=== PATIENT | female | born 1960 | race Caucasian/White ===

== ENCOUNTER 2022-09-24 17:56 | Emergency (ER) | payer OTHER, SELFPAY ==
[2022-09-24] VITALS (65 sets, daily range): BP systolic 113–177; BP diastolic 60–118; PULSE 91–105; RESP 11–26; TEMP 36.8; O2SAT 72–98; BMI 24.6
--- NOTE | 2022-09-24 17:26 | XR_ITS ---
[address] [address] Patient Name: JONATAN SPENCER MRN: [id number] date: 1960 Sex: F Assigned Patient Location: ER Current Patient Location: ER Accession/Order Number: [id number] Exam Date: 09/24/2022 17:58 Report Date: 09/24/2022 18:15 At the request of: HO PEREZ Procedure: XR chest 1V EXAMINATION: XR chest 1V HISTORY: Chest pain COMPARISON: Chest x-ray 08/25/2021 TECHNIQUE: Portable chest FINDINGS: The lung parenchyma is free of consolidation or infiltrate. No pneumothorax or pleural effusion. The cardiac, mediastinal and hilar contours are normal. The visualized osseous structures exhibit no gross abnormality. IMPRESSION: No acute cardiopulmonary abnormality. Electronically authenticated by: APOLINAR GRANADOS Date: 09/24/2022 18:15
--- NOTE | 2022-09-24 17:26 | ECG_ITS ---
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
--- NOTE | 2022-09-24 17:26 | ED.CHESTPAI1 ---
HPI - Chest Pain General Chief Complaint: Shortness of Breath/Dyspnea Stated Complaint: chest pain Time Seen by Provider: 09/24/22 18:38 Source: patient Mode of arrival: ambulance Limitations: no limitations History of Present Illness HPI narrative: patient here complaining of chest pain radiating to her shoulders and upper arms. She also has shortness of breath. The last two days she went without her usual oxygen because she is staying at another person's house. She has a history of coronary stents done approximately seven years ago actually up from [facility]. She's not had any recent stress testing. She was given nitroglycerin before arrival by squad and she was also given aspirin. She said her pain went from 87. She does not have any diaphoresis. Does not have any lower leg pain. Says is just a hurting across her chest. A 12-lead EKG done in route and also upon arrival here does not show any ST segment elevation.she states the discomfort started approximately 2:00 PM and she was at rest. She says she got slightly diaphoretic. She did not have vomiting. She's not had this discomfort recently. She took one nitroglycerin and one aspirin and then paramedics gave her more nitroglycerin and another aspirin. She continues to use tobacco products. Related Data Home Medications Medication Instructions Recorded Confirmed amlodipine 10 mg tablet 10 mg PO QDAY 09/24/22 09/24/22 aspirin 81 mg tablet,delayed 81 mg PO QDAY 09/24/22 09/24/22 release escitalopram oxalate 10 mg tablet 10 mg PO QDAY 09/24/22 09/24/22 gabapentin 800 mg tablet 800 mg PO Q12H 09/24/22 09/24/22 losartan 100 mg tablet 100 mg PO QDAY 09/24/22 09/24/22 methocarbamol 750 mg tablet 750 mg PO Q8H 09/24/22 09/24/22 oxycodone-acetaminophen 5 mg-325 1 tab PO Q6H PRN pain 09/24/22 09/24/22 mg tablet pregabalin 150 mg capsule 150 mg PO Q12H 09/24/22 09/24/22 Allergies Allergy/AdvReac Type Severity Reaction Status Date / Time codeine AdvReac Intermediate Verified 09/24/22 17:23 ceclor AdvReac Intermediate Uncoded 09/24/22 17:23 PFSH PFSH Social History Smoking status: Former smoker Exam Narrative Exam Narrative: the patient was seen immediately upon arrival by myself examination at that time. Simultaneously instituted therapy. At this time she is awake alert. Less than optimal historian, she can't remember exactly which hospital she had her coronary stents placed but thinks it was about seven years ago. She is not diaphoretic but she says she was earlier. She is not vomiting but she said she was nauseated. Constitutional skin is warm and dry. She appears older than stated age vital signs are as noted. HEENT shows no evidence of trauma or injury. There is no conjunctivitis. Her airways patent oral cavity is normal. Eye examination shows no scleral icterus or pallor. Respiratory her lungs were clear is scattered rhonchi with prolongation of expiratory phase consistent with chronic obstructive pulmonary disease. Cardio shows regular rate and rhythm with no ectopy. Extremities show no evidence of pedal edema. Perfusion to the limbs is normal with good tissue perfusion. Neuro she is awake alert oriented. Gastrointestinal she has no abdominal distention no pulsatile masses and no pain. Constitutional Vital Signs - 24 hr 09/24/22 17:24 09/24/22 17:53 09/24/22 18:02 Temperature 98.2 F Pulse Rate Pulse Rate [Monitor] 105 H Respiratory Rate 18 26 H Blood Pressure Blood Pressure [Left Arm] 164/83 H Pulse Oximetry 98 72 L 93 L Oxygen Delivery Method Room Air Room Air Vapotherm Oxygen Delivery Flow Rate Fraction of Inspired Oxygen 09/24/22 18:12 09/24/22 18:17 09/24/22 17:21 Temperature Pulse Rate 101 H Pulse Rate [Monitor] Respiratory Rate 26 H Blood Pressure Blood Pressure [Left Arm] Pulse Oximetry 93 L 92 L 81 L Oxygen Delivery Method Vapotherm Vapotherm Oxygen Delivery Flow Rate 35 Fraction of Inspired Oxygen 60 09/24/22 17:25 09/24/22 17:25 09/24/22 17:45 Temperature Pulse Rate 100 H 99 H 99 H Pulse Rate [Monitor] Respiratory Rate 19 24 26 H Blood Pressure 164/83 H 164/75 H Blood Pressure [Left Arm] Pulse Oximetry 92 L 98 87 L Oxygen Delivery Method Oxygen Delivery Flow Rate Fraction of Inspired Oxygen 09/24/22 17:50 09/24/22 17:55 09/24/22 18:00 Temperature Pulse Rate 96 H 98 H 95 H Pulse Rate [Monitor] Respiratory Rate 14 21 19 Blood Pressure 155/68 H 150/67 H 165/71 H Blood Pressure [Left Arm] Pulse Oximetry 90 L 91 L 88 L Oxygen Delivery Method Oxygen Delivery Flow Rate Fraction of Inspired Oxygen 09/24/22 18:05 09/24/22 18:10 09/24/22 18:15 Temperature Pulse Rate 95 H 98 H 96 H Pulse Rate [Monitor] Respiratory Rate 26 H 15 18 Blood Pressure 158/90 H 146/118 H 145/76 H Blood Pressure [Left Arm] Pulse Oximetry 93 L 89 L 92 L Oxygen Delivery Method Oxygen Delivery Flow Rate Fraction of Inspired Oxygen 09/24/22 18:20 09/24/22 18:25 09/24/22 18:30 Temperature Pulse Rate 94 H 96 H 96 H Pulse Rate [Monitor] Respiratory Rate 14 16 19 Blood Pressure 158/80 H 156/71 H 169/76 H Blood Pressure [Left Arm] Pulse Oximetry 96 93 L 94 L Oxygen Delivery Method Oxygen Delivery Flow Rate Fraction of Inspired Oxygen 09/24/22 18:35 Temperature Pulse Rate 101 H Pulse Rate [Monitor] Respiratory Rate 16 Blood Pressure 163/74 H Blood Pressure [Left Arm] Pulse Oximetry 95 Oxygen Delivery Method Oxygen Delivery Flow Rate Fraction of Inspired Oxygen Course Vital Signs Vital signs: Vital Signs Pulse Rate 101 H 09/24/22 17:21 Respiratory Rate 26 H 09/24/22 17:21 Pulse Oximetry 81 L 09/24/22 17:21 Temperature 98.2 F 09/24/22 17:24 Pulse Rate 101 H 09/24/22 18:35 Respiratory Rate 16 09/24/22 18:35 Blood Pressure 163/74 H 09/24/22 18:35 Pulse Oximetry 95 09/24/22 18:35 Oxygen Delivery Method Vapotherm 09/24/22 18:17 Oxygen Delivery Flow Rate 35 09/24/22 18:17 Fraction of Inspired Oxygen 60 09/24/22 18:17 MDM - Chest Pain MDM Narrative Medical decision making narrative: this patient is a continuous smoker has comorbidities and had stents approximately seven years ago. She was treated as acute coronary syndrome from her arrival. Her EKGs did not show any ST segment elevation but in fact her troponin is elevated. Her d-dimer is also elevated. She was started on a heparin drip she was given MS she was started on nitroglycerin drip and she had her aspirin earlier. We will contact [facility] in [place] to try to arrange transfer at this time. Lab Data Labs: Lab Results 09/24/22 Range/Units 17:51 WBC 16.7 H (4.0-11.0) 10^3/uL RBC 4.42 (4.20-5.40) 10^6/uL Hgb 12.2 (12.0-16.0) g/dL Hct 39.0 (36.0-48.0) % MCV 88.2 (81.0-99.0) fL MCH 27.6 (26.7-34.0) pg MCHC 31.3 (29.9-35.2) g/dL RDW 19.1 H (11.0-15.0) % Plt Count 248 (150-450) 10^3/uL MPV 8.5 L (9.5-13.5) fL Neut % (Auto) 86.6 H (43.0-75.0) % Lymph % (Auto) 5.4 L (20.5-60.0) % [place] % (Auto) 5.6 (1.7-12.0) % Eos % (Auto) 1.2 (0.9-7.0) % Baso % (Auto) 0.7 (0.2-2.0) % Neut # (Auto) 14.4 H (1.4-6.5) 10^3/uL Lymph # (Auto) 0.9 L (1.2-3.8) 10^3/uL [place] # (Auto) 0.9 H (0.3-0.8) 10^3/uL Eos # (Auto) 0.2 (0.0-0.7) 10^3/uL Baso # (Auto) 0.1 (0.0-0.1) 10^3/uL Abs Immat Gran (auto) 0.08 H (0.00-0.03) 10^3/uL Imm/Tot Granulo (auto) 0.5 (0.0-0.5) % PT 9.9 (9.0-11.6) sec INR 0.93 APTT 27.0 (22.3-36.2) sec D-Dimer 2.54 H* (<=0.59) mg/L FEU Sodium 137 (136-145) mmol/L Potassium 3.5 (3.5-5.1) mmol/L Chloride 98 (98-107) mmol/L Carbon Dioxide 30.1 (21.0-32.0) mmol/L Anion Gap 12.4 BUN 17.0 (7.0-18.0) mg/dL Creatinine 1.09 H (0.55-1.02) mg/dL Est GFR ( Amer) >60 (>=60) Est GFR (Non-Af Amer) 51 L (>=60) BUN/Creatinine Ratio 15.6 Glucose 163 H (74-106) mg/dL Calcium 8.9 (8.5-10.1) mg/dL Total Bilirubin 0.4 (0.2-1.0) mg/dL AST 13 L (15-37) U/L ALT 15 (14-59) U/L Alkaline Phosphatase 166 H (46-116) U/L Troponin I High Sens 80.5 H* (4.0-51.3) pg/mL NT-Pro-B Natriuret Pep 3611.0 H* (<=900.0) pg/mL Total Protein 7.4 (6.4-8.2) g/dL Albumin 3.2 L (3.4-5.0) g/dL Globulin 4.2 g/dL Albumin/Globulin Ratio 0.8 ECG Data Attestation: I personally reviewed and interpreted this ECG as follows: ECG interpretation date: 09/24/22 Interpretation: EKG shows sinus tract borderline with rate one oh one. There is motion artifact. There is no ST segment elevation. The axis for QRS one thirty-seven. There is no malignant ectopy. There is right ventricular conduction delay. There is no substantial change from 08/25/2021 Heart Score History: Highly Suspicious Age: >45-<65 years Risk Factors: >3 Risk Factors/ HX of CAD:2 Troponin: <3X Normal Limit Critical Care Time Critical Care Time Total Critical Care Time: 60 Discharge Plan Discharge Chief Complaint: Shortness of Breath/Dyspnea Clinical Impression: Non-STEMI (non-ST elevated myocardial infarction) Patient Disposition: [facility] Time of Disposition Decision: 18:46 Condition: Fair Mode of Transportation: EMS Prescriptions / Home Meds: No Action amlodipine 10 mg tablet 10 mg PO QDAY aspirin 81 mg tablet,delayed release (DR/EC) 81 mg PO QDAY escitalopram oxalate 10 mg tablet 10 mg PO QDAY gabapentin 800 mg tablet 800 mg PO Q12H losartan 100 mg tablet 100 mg PO QDAY methocarbamol 750 mg tablet 750 mg PO Q8H oxycodone-acetaminophen 5-325 mg tablet 1 tab PO Q6H PRN (Reason: pain) pregabalin 150 mg capsule 150 mg PO Q12H Referrals: Physician,Non-Staff, MD [Primary Care Provider] - 1 week
[2022-09-24] MEDS: NITROGLYCERIN IN 5 % DEXTROSE 50 MG/250 ML INFUS..BTL IV (17:33)
[2022-09-24] MEDS: MORPHINE SULFATE 2 MG/ML SYRINGE IV (17:40)
--- NOTE | 2022-09-24 18:02 | PC.NURSE ---
pt presents to ED because for the last 1-2 days she has been c/o sob and chest pain. pt states she has hx of COPD and wears 2 liters nasal cannula as needed. pt states she has been staying at her brothers house the last couple days and hasn't had access to her at home o2. pt states she did have stents placed back in 2019. when squad arrived pt 02 was low, pt placed on 4 liters nasal cannula. on arrival to ED pt o2 sat was 72% on room air. pt placed on 6 liters nasal cannula and sitting at 82-84%. respiratory called to bedside. pt placed on non-rebreather and satting at 100%. when respiratory was attempting to switch patient back onto nasal cannula pt o2 sat dropped to 85% whenever patient would move. physician notified and pt currently on vapotherem now satting at 93%.
[2022-09-24 18:07] LABS: Basophils Absolute Auto 0.1 10^3/uL (0.0-0.1); Basophils Percent Auto 0.7 % (0.2-2.0); Eosinophils Absolute Auto 0.2 10^3/uL (0.0-0.7); Eosinophils Percent Auto 1.2 % (0.9-7.0); Hemoglobin 12.2 g/dL (12.0-16.0); Immature Granulocytes Abs Auto 0.08 10^3/uL (0.00-0.03); Immature Granulocytes Pct Auto 0.5 % (0.0-0.5); Lymphocytes Absolute Auto 0.9 10^3/uL (1.2-3.8); Lymphocytes Percent Auto 5.4 % (20.5-60.0); Mean Corpuscular HGB Conc 31.3 g/dL (29.9-35.2); Mean Corpuscular Hemoglobin 27.6 pg (26.7-34.0); Mean Corpuscular Volume 88.2 fL (81.0-99.0); Mean Platelet Volume 8.5 fL (9.5-13.5); Monocytes Absolute Auto 0.9 10^3/uL (0.3-0.8); Monocytes Percent Auto 5.6 % (1.7-12.0); Neutrophils Absolute Auto 14.4 10^3/uL (1.4-6.5); Neutrophils Percent Auto 86.6 % (43.0-75.0); Platelet Count 248 10^3/uL (150-450); Red Blood Count 4.42 10^6/uL (4.20-5.40); Red Cell Distribution Width 19.1 % (11.0-15.0); White Blood Count 16.7 10^3/uL (4.0-11.0)
[2022-09-24 18:17] LABS: INR 0.93; Prothrombin Time 9.9 sec (9.0-11.6)
--- NOTE | 2022-09-24 18:18 | RESP.RT ---
pt was on NRB, spo2 97%, pt changed to 5lNC spo2 89-90% with rest, 84-85% with exertion. pt changed to vapotherm
[2022-09-24 18:19] LABS: D Dimer 2.54 mg/L FEU (<=0.59)
--- NOTE | 2022-09-24 18:20 | PC.NURSE ---
pt states she took 1 baby aspirin and 1 nitro at home before squad arrived. squad gave 1 nitro and 324 of aspirin during transportation
[2022-09-24 18:30] LABS: Alanine Aminotransferase 15 U/L (14-59); Albumin Globulin Ratio 0.8; Albumin Level 3.2 g/dL (3.4-5.0); Alkaline Phosphatase 166 U/L (46-116); Anion Gap 12.4; Aspartate Amino Transferase 13 U/L (15-37); BUN Creatinine Ratio 15.6; Bilirubin Total 0.4 mg/dL (0.2-1.0); Calcium 8.9 mg/dL (8.5-10.1); Carbon Dioxide 30.1 mmol/L (21.0-32.0); Chloride 98 mmol/L (98-107); Estimated GFR (African America >60 (>=60); Estimated GFR (Non-African Ame 51 (>=60); Globulin 4.2 g/dL; Glucose 163 mg/dL (74-106); Potassium 3.5 mmol/L (3.5-5.1); Sodium 137 mmol/L (136-145); Total Protein 7.4 g/dL (6.4-8.2)
[2022-09-24 18:35] LABS: Troponin I High Sensitivity 80.5 pg/mL (4.0-51.3)
[2022-09-24] MEDS: HEPARIN SODIUM (PORCINE) 5,000 UNIT/ML VIAL 3900 UNIT IV (18:59)
[2022-09-24] MEDS: HEPARIN SODIUM,PORCINE/D5W 25,000 UNIT/500 ML IV.SOLN 16 UNIT IV (18:59)
[2022-09-24] MEDS: PREGABALIN 75 MG CAPSULE 150 MG PO (19:39)
== END 2022-09-24 23:20 | disposition short-term general hospital (02) ==
PROVIDERS: Emergency Medicine Emergency Medical Services; Emergency Provider Internal Medicine
DX: I21.4 Non-ST elevation (NSTEMI) myocardial infarction (principal); R79.89 Other specified abnormal findings of blood chemistry; I25.10 Atherosclerotic heart disease of native coronary artery without angina pectoris; Z99.81 Dependence on supplemental oxygen; Z95.5 Presence of coronary angioplasty implant and graft; F17.210 Nicotine dependence, cigarettes, uncomplicated; Z79.899 Other long term (current) drug therapy; Z79.82 Long term (current) use of aspirin
CPT/HCPCS: 36415; 71045; 80053; 81003; 83880; 84484; 85025; 85378; 85610; 85730; 93005; 94799; 96374; 96375; 99285

== ENCOUNTER 2023-03-11 12:19 | Emergency (ER) | payer OTHER, SELFPAY ==
[2023-03-11 12:21] VITALS: BP 143/76; PULSE 96; RESP 18; TEMP 36.7; O2SAT 99; BMI 22.7
--- NOTE | 2023-03-11 12:40 | XR_ITS ---
The [place] [id number] Patient Name: JONATAN SPENCER MRN: [id number] date: 1960 Sex: F Assigned Patient Location: ER Current Patient Location: ER Accession/Order Number: [id number] Exam Date: 03/11/2023 12:58 Report Date: 03/11/2023 13:27 At the request of: HO PEREZ Procedure: XR pelvis min 3V EXAM: XR pelvis min 3V, XR hip RT min 2V HISTORY: FALL COMPARISON: CT pelvis study dated 08/25/2021 TECHNIQUE: 3 views of the pelvis were obtained. FINDINGS: Marked degenerative changes about the right hip joint with significant joint space narrowing superolaterally. Sclerosis of the adjacent bony structures with degenerative subchondral cystic changes adjacent bony structures. Minimal degenerative change about the left hip joint. Sacroiliac joints appear grossly unremarkable. Ilnx-sa-jzfezxef degenerative changes about the visualized lower lumbar spine. Mild osteitis pubis. There appears be a healing fracture of the right inferior pubic ramus which appears essentially undisplaced. Postoperative clips are noted bilaterally. Vascular consolidations are present. AP and lateral views of the right hip were obtained. FINDINGS: Healing fracture of an essentially undisplaced transverse fracture of the right inferior pubic ramus with mild periosteal new bone formation suggested. Fracture of the proximal right superior pubic ramus suggested on pelvic view not convincingly demonstrated, this may be positional in nature. Postoperative clips are present. Vascular calcifications are noted. Soft tissues are grossly within normal limits. XR/XR pelvis min 3V IMPRESSION: Pelvis study demonstrates healing inferior right pubic ramus fracture. Right hip study demonstrates healing inferior pubic ramus fracture as noted. Follow-up as needed. Electronically authenticated by: SERENITY CARR Date: 03/11/2023 13:27
--- NOTE | 2023-03-11 12:40 | XR_ITS ---
The [address] [address] Patient Name: JONATAN SPENCER MRN: [id number] date: 1960 Sex: F Assigned Patient Location: ER Current Patient Location: ER Accession/Order Number: [id number] Exam Date: 03/11/2023 12:58 Report Date: 03/11/2023 13:27 At the request of: HO PEREZ Procedure: XR hip RT min 2V EXAM: XR pelvis min 3V, XR hip RT min 2V HISTORY: FALL COMPARISON: CT pelvis study dated 08/25/2021 TECHNIQUE: 3 views of the pelvis were obtained. FINDINGS: Marked degenerative changes about the right hip joint with significant joint space narrowing superolaterally. Sclerosis of the adjacent bony structures with degenerative subchondral cystic changes adjacent bony structures. Minimal degenerative change about the left hip joint. Sacroiliac joints appear grossly unremarkable. Nlzb-sy-zvkyebsi degenerative changes about the visualized lower lumbar spine. Mild osteitis pubis. There appears be a healing fracture of the right inferior pubic ramus which appears essentially undisplaced. Postoperative clips are noted bilaterally. Vascular consolidations are present. AP and lateral views of the right hip were obtained. FINDINGS: Healing fracture of an essentially undisplaced transverse fracture of the right inferior pubic ramus with mild periosteal new bone formation suggested. Fracture of the proximal right superior pubic ramus suggested on pelvic view not convincingly demonstrated, this may be positional in nature. Postoperative clips are present. Vascular calcifications are noted. Soft tissues are grossly within normal limits. XR/XR hip RT min 2V IMPRESSION: Pelvis study demonstrates healing inferior right pubic ramus fracture. Right hip study demonstrates healing inferior pubic ramus fracture as noted. Follow-up as needed. Electronically authenticated by: SERENITY CARR Date: 03/11/2023 13:27
[2023-03-11] MEDS: HYDROMORPHONE HCL 1 MG/ML CARTRIDGE IM (14:01)
--- NOTE | 2023-04-18 15:09 | ED_ITS ---
HPI - Extremity Injury (Lower) General Chief Complaint: Extremity Injury, Lower Stated Complaint: HIP/LEG PAIN FALL Time Seen by Provider: 03/11/23 13:52 Source: patient Mode of arrival: ambulance Limitations: no limitations History of Present Illness HPI Narrative: pt here with ongoing pain lt hip are after fall from bed one week ago no other since then. no head or neck injury. no chest pain or sob . is able to bear weight with discomfort Related Data Home Medications Medication Instructions Recorded Confirmed amlodipine 10 mg tablet 10 mg PO QDAY 09/24/22 03/18/23 aspirin 81 mg tablet,delayed 81 mg PO QDAY 09/24/22 03/18/23 release losartan 100 mg tablet 100 mg PO QDAY 09/24/22 03/18/23 methocarbamol 750 mg tablet 750 mg PO QID 09/24/22 03/18/23 dextromethorphan-guaifenesin ER 60 1 tab PO BID 03/18/23 03/18/23 mg-1,200 mg tab,extend release,12hr (Mucinex DM) gabapentin 800 mg tablet 800 mg PO QID 03/18/23 03/18/23 (Neurontin) levothyroxine 150 mcg tablet 150 mcg PO DAILY 03/18/23 03/18/23 (Synthroid) oxycodone-acetaminophen 5 mg-325 1 tab PO Q6H PRN pain 03/18/23 03/18/23 mg tablet (Percocet) tiotropium bromide 18 mcg capsule 1 cap inhalation DAILY 03/18/23 03/18/23 with inhalation device (Spiriva with HandiHaler) Previous Rx's Medication Instructions Recorded levofloxacin 750 mg tablet 750 mg PO DAILY 10 days #10 tabs 03/20/23 levofloxacin 750 mg tablet 750 mg PO DAILY 10 days #10 tabs 03/20/23 liothyronine 5 mcg tablet 10 mcg (2 x 5 mcg) PO ACB #60 tabs 03/20/23 liothyronine 5 mcg tablet (Cytomel) 10 mcg (2 x 5 mcg) PO DAILY #60 03/20/23 tabs prednisone 10 mg tablet 50 mg (5 x 10 mg) PO DAILY #47 tabs 03/20/23 prednisone 10 mg tablet 50 mg (5 x 10 mg) PO DAILY #47 tabs 03/20/23 Allergies Allergy/AdvReac Type Severity Reaction Status Date / Time codeine AdvReac Intermediate Verified 09/24/22 17:23 arabella AdvReac Intermediate Uncoded 09/24/22 17:23 [facility] Medical History (Updated 04/18/23 @ 15:17 by Ulises Schilling MD) Acute exacerbation of chronic obstructive pulmonary disease ?J44.1 - Chronic obstructive pulmonary disease with (acute) exacerbation (ICD-10) Acute and chronic respiratory failure with hypoxia ?J96.21 - Acute and chronic respiratory failure with hypoxia (ICD-10) Acute exacerbation of CHF (congestive heart failure) ?I50.9 - Heart failure, unspecified (ICD-10) Smoker ?F17.200 - Nicotine dependence, unspecified, uncomplicated (ICD-10) Fall ?W19.XXXA - Unspecified fall, initial encounter (ICD-10) Oxygen dependent ?Z99.81 - Dependence on supplemental oxygen (ICD-10) CHF (congestive heart failure) ?I50.9 - Heart failure, unspecified (ICD-10) HTN (hypertension) ?I10 - Essential (primary) hypertension (ICD-10) Heart attack ?I21.9 - Acute myocardial infarction, unspecified (ICD-10) COPD (chronic obstructive pulmonary disease) ?J44.9 - Chronic obstructive pulmonary disease, unspecified (ICD-10) Surgical History (Updated 03/18/23 @ 06:03 by Carly Toth RN) Stented coronary artery ?Z95.5 - Presence of coronary angioplasty implant and graft (ICD-10) Social History Smoking status: Current every day smoker Exam Narrative Exam Narrative: awake, alert , oriented x3 no head or neck pain, tenderness or injury pulses to lower limb normal, no leg shortening, free rom bilat with some discomfort hip are only. no ther evidence injury chest, airway, cv normal Constitutional Vital Signs, click to edit/add: Last Vital Signs Temp 98.1 F 03/11/23 12:21 Pulse 96 H 03/11/23 12:21 Resp 18 03/11/23 12:21 BP 143/76 H 03/11/23 12:21 Pulse Ox 99 03/11/23 12:21 O2 Del Method Nasal Cannula 03/11/23 12:21 Course Vital Signs Vital signs: Vital Signs Temperature 98.1 F 03/11/23 12:21 Pulse Rate 96 H 03/11/23 12:21 Respiratory Rate 18 03/11/23 12:21 Blood Pressure 143/76 H 03/11/23 12:21 Pulse Oximetry 99 03/11/23 12:21 Oxygen Delivery Method Nasal Cannula 03/11/23 12:21 Temperature 98.1 F 03/11/23 12:21 Pulse Rate 96 H 03/11/23 12:21 Respiratory Rate 18 03/11/23 12:21 Blood Pressure 143/76 H 03/11/23 12:21 Pulse Oximetry 99 03/11/23 12:21 Oxygen Delivery Method Nasal Cannula 03/11/23 12:21 MDM - Extremity Injury (Lower) MDM Narrative Medical decision making narrative: xray confirm subacute inf pubic ramus fx, otherwise no acute injury pt is able to use walker and pain is moderate. she agrees to outpt management and orthe follow up Discharge Plan Discharge Chief Complaint: Extremity Injury, Lower Clinical Impression: Fracture, pelvis closed Patient Disposition: Home, Self-Care Mode of Transportation: Private Vehicle Prescriptions / Home Meds: No Action dextromethorphan-guaifenesin [Mucinex DM] 60-1,200 mg tablet extended release 12 hr 1 tab PO BID levothyroxine [Synthroid] 150 mcg tablet 150 mcg PO DAILY oxycodone-acetaminophen [Percocet] 5-325 mg tablet 1 tab PO Q6H PRN (Reason: pain) gabapentin [Neurontin] 800 mg tablet 800 mg PO QID tiotropium bromide [Spiriva with HandiHaler] 18 mcg capsule, w/inhalation device 1 cap inhalation DAILY Rx Instructions: puncture 1 cap using device; one dose = 2 inhalations liothyronine 5 mcg Tablet 10 mcg PO ACB Qty: 60 11RF levofloxacin 750 mg tablet 750 mg PO DAILY 10 Days Qty: 10 0RF prednisone 10 mg tablet 50 mg PO DAILY Qty: 47 0RF Rx Instructions: 5/day for 3 days. 4/day for 3 days, 3/day for 3 days, 2/day for 3 days, 1/day for 3 days, 1/2 /day for 4 days levofloxacin 750 mg tablet 750 mg PO DAILY 10 Days Qty: 10 0RF prednisone 10 mg tablet 50 mg PO DAILY Qty: 47 0RF Rx Instructions: 5/day for 3 days. 4/day for 3 days, 3/day for 3 days, 2/day for 3 days, 1/day for 3 days, 1/2 /day for 4 days liothyronine [Cytomel] 5 mcg tablet 10 mcg PO DAILY Qty: 60 11RF amlodipine 10 mg tablet 10 mg PO QDAY aspirin 81 mg tablet,delayed release (DR/EC) 81 mg PO QDAY losartan 100 mg tablet 100 mg PO QDAY methocarbamol 750 mg tablet 750 mg PO QID Instructions: Pelvic Avulsion Fractures in Adults (ED) Additional Instructions: ortho follow up as discussed Stand Alone Forms: Portal Instructions Referrals: Physician,Non-Staff, [Primary Care Provider] - 1 week Zach Kern MD [Physician] - 1 week Discharge Date/Time: 03/11/23 14:08
== END 2023-03-11 14:08 | disposition home or self-care (01) ==
PROVIDERS: Emergency Provider Emergency Medicine Emergency Medical Services
DX: S32.591A Other specified fracture of right pubis, initial encounter for closed fracture (principal); W06.XXXA Fall from bed, initial encounter; J44.9 Chronic obstructive pulmonary disease, unspecified; I11.0 Hypertensive heart disease with heart failure; I50.9 Heart failure, unspecified; I25.2 Old myocardial infarction; F17.210 Nicotine dependence, cigarettes, uncomplicated; Z95.5 Presence of coronary angioplasty implant and graft; Z79.899 Other long term (current) drug therapy; Z79.82 Long term (current) use of aspirin; Z79.890 Hormone replacement therapy
CPT/HCPCS: 72190; 73502; 96372; 99284; J1170

== ENCOUNTER 2023-03-18 01:31 | Inpatient (IN) | payer OTHER, SELFPAY ==
[2023-03-18] VITALS (58 sets, daily range): BP systolic 126–196; BP diastolic 60–134; PULSE 80–96; RESP 12–30; TEMP 36.4–37.2; O2SAT 85–98; BMI 26.5
--- NOTE | 2023-03-18 01:36 | XR_ITS ---
The [place] [id number] Patient Name: JONATAN SPENCER MRN: [id number] date: 1960 Sex: F Assigned Patient Location: ER Current Patient Location: ED.MAIN Accession/Order Number: [id number] Exam Date: 03/18/2023 02:10 Report Date: 03/18/2023 03:27 At the request of: DAVIDE HUFF Procedure: XR chest 1V EXAM: XR chest 1V HISTORY: sob COMPARISON: Chest x-ray, 09/24/2022. TECHNIQUE: AP upright portable chest x-ray. FINDINGS: The heart is moderately enlarged, but exaggerated by rightward rotation. There is pulmonary vascular congestion with mildly increased interstitial markings in the lower lungs suspicious for early dependent pulmonary edema. No focal consolidation, pleural effusion or pneumothorax is seen. XR/XR chest 1V IMPRESSION: Moderate cardiomegaly with findings suspicious for mild dependent edema at the lung bases. Electronically authenticated by: JORGE ROTH Date: 03/18/2023 03:27
--- NOTE | 2023-03-18 01:36 | ECG_ITS ---
The [facility] Test Date: 2023-03-18 Pat Name: JONATAN SPENCER Department: Room: 2731 Gender: Female [employer] Production: : 1960 Requested By: [id number] Order Number: [id number] Reading MD: SAMANTHA BASILIO Measurements Intervals [place] Rate: 88 P: 75 MO: 154 QRS: 100 QRSD: 94 T: 77 QT: 346 QTc: 391 Interpretive Statements 1100 Sinus rhythm 2440 Incomplete right bundle branch block 7300 Indeterminate axis 9130 borderline ECG Electronically Signed On 03-19-2023 7:06:45 EST by SAMANTHA BASILIO
--- NOTE | 2023-03-18 01:49 | PC.NURSE ---
Pt reports hx COPD, wears 2L NC at home. Pt reprots fall 5 days ago, seen in [place] [facility]. Pt developed productive cough (yellow sputum) and dyspnea tonight. Pt reports chest pain and pelvic pain (from fall).
--- NOTE | 2023-03-18 01:51 | PC.NURSE ---
Lab at bedside. RT at bedside obtaining ABG and placing pt on vapotherm. Pt reports anxiety with BIPAP.
[2023-03-18] MEDS: IPRATROPIUM/ALBUTEROL SULFATE 3 ML AMPUL.NEB 9 ML IH (02:00)
--- NOTE | 2023-03-18 02:01 | PC.NURSE ---
Per EMS pt received 1 duoneb, 1 nitro, 324mg asprin, and soulmedrol en route. IV established.
--- NOTE | 2023-03-18 02:01 | RESP.RT ---
placed patient on vapotherm at this time
[2023-03-18 02:04] LABS: Base Excess ABG -0.2 mmol/L (-2.0-2.0); HCO3 ABG 26.6 mmol/L (22.0-26.0); PO2 ABG 55.1 mmHg (80.0-100.0)
[2023-03-18 02:05] LABS: Allen Test POSITIVE (POSITIVE); Liters per Minute 6; O2 Mode NASAL CANNULA; Oxygen Saturation ABG 89.1 %; Puncture Site R RADIAL; pH ABG 7.277 (7.350-7.450)
[2023-03-18 02:06] LABS: ABG PCO2 57.1 mmHg (35.0-45.0)
--- NOTE | 2023-03-18 02:08 | RESP.RT ---
decreased to 50% at this time
[2023-03-18 02:13] LABS: Basophils Absolute Auto 0.1 10^3/uL (0.0-0.1); Basophils Percent Auto 0.3 % (0.2-2.0); Eosinophils Percent Auto 0.1 % (0.9-7.0); Hematocrit 43.7 % (36.0-48.0); Hemoglobin 13.4 g/dL (12.0-16.0); Immature Granulocytes Abs Auto 0.26 10^3/uL (0.00-0.03); Immature Granulocytes Pct Auto 1.5 % (0.0-0.5); Lymphocytes Absolute Auto 1.3 10^3/uL (1.2-3.8); Lymphocytes Percent Auto 7.2 % (20.5-60.0); Mean Corpuscular HGB Conc 30.7 g/dL (29.9-35.2); Mean Corpuscular Hemoglobin 26.5 pg (26.7-34.0); Mean Corpuscular Volume 86.4 fL (81.0-99.0); Mean Platelet Volume 9.2 fL (9.5-13.5); Monocytes Absolute Auto 0.7 10^3/uL (0.3-0.8); Monocytes Percent Auto 4.2 % (1.7-12.0); Neutrophils Absolute Auto 15.3 10^3/uL (1.4-6.5); Neutrophils Percent Auto 86.7 % (43.0-75.0); Platelet Count 336 10^3/uL (150-450); Red Blood Count 5.06 10^6/uL (4.20-5.40); Red Cell Distribution Width 18.4 % (11.0-15.0); White Blood Count 17.7 10^3/uL (4.0-11.0)
[2023-03-18 02:17] LABS: Bilirubin Urine NEGATIVE (NEGATIVE); Blood Urine TRACE-I (NEGATIVE); Clarity Urine CLEAR (CLEAR); Color Urine LT. YELLOW (YELLOW); Glucose Urine UA NEGATIVE (NEGATIVE); Ketones Urine NEGATIVE (NEGATIVE); Leukocyte Esterase Urine NEGATIVE (NEGATIVE); Nitrite Urine NEGATIVE (NEGATIVE); Protein Urine 100 mg/dL (NEG/TRACE); Specific Gravity Urine 1.015 (1.005-1.025); Urobilinogen Urine 0.2 EU/dL (0.2-1.0); pH Urine 6.5 (5.0-9.0)
[2023-03-18 02:18] LABS: Urine Microscopic Indicated YES
[2023-03-18 02:25] LABS: Bacteria Urine NONE SEEN #/HPF (NONE SEEN); Cast Seen? NONE SEEN #/LPF (NONE SEEN); Crystals Seen? None Seen #/HPF (None Seen); Mucus Urine NONE SEEN (NONE SEEN); RBC Urine 0-2 #/HPF (0-2); Squamous Epithelial Cell Urine RARE #/LPF (NONE/RARE); Transitional Epi Cells Urine RARE #/LPF (NONE SEEN); Urine Culture Indicated ALREADY ORDERED; WBC Urine NONE SEEN #/HPF (NONE SEEN)
[2023-03-18 02:26] LABS: Influenza Virus A Antigen Negative; Influenza Virus B Antigen Negative; SARS-CoV-2 Ag NEGATIVE (NEGATIVE)
[2023-03-18 02:27] LABS: Internal Control Within Normal Limits
[2023-03-18 02:30] LABS: INR 0.97; Prothrombin Time 10.3 sec (9.0-11.6)
[2023-03-18 02:32] LABS: Alanine Aminotransferase 24 U/L (14-59); Albumin Globulin Ratio 0.8; Albumin Level 3.2 g/dL (3.4-5.0); Alkaline Phosphatase 106 U/L (46-116); Anion Gap 7.9; Aspartate Amino Transferase 19 U/L (15-37); Bilirubin Total 0.4 mg/dL (0.2-1.0); Calcium 8.5 mg/dL (8.5-10.1); Carbon Dioxide 30.6 mmol/L (21.0-32.0); Chloride 98 mmol/L (98-107); Estimated GFR (African America >60 (>=60); Estimated GFR (Non-African Ame 52 (>=60); Glucose 190 mg/dL (74-106); Potassium 3.5 mmol/L (3.5-5.1); Sodium 133 mmol/L (136-145); Total Protein 7.2 g/dL (6.4-8.2)
[2023-03-18 02:34] LABS: Lactate/Lactic Acid 0.7 mmol/L (0.4-2.0)
[2023-03-18] MEDS: OXYCODONE HCL/ACETAMINOPHEN 5MG/325MG 1 TAB PO ×5 (02:36→20:19)
[2023-03-18 02:39] LABS: Troponin I High Sensitivity 9.9 pg/mL (4.0-51.3)
[2023-03-18] MEDS: FUROSEMIDE 40 MG/4 ML VIAL IVP (02:52)
[2023-03-18 03:11] LABS: PROCALCITONIN <0.05 ng/mL (0.00-0.50)
--- NOTE | 2023-03-18 03:34 | ED.GENADUL1 ---
HPI - General Adult General Chief complaint: Shortness of Breath/Dyspnea Stated complaint: CHEST PAIN Time Seen by Provider: 03/18/23 01:35 Source: patient Mode of arrival: ambulance Limitations: no limitations History of Present Illness HPI narrative: 62-year-old female to the emergency Department chief complaint of worsening shortness of breath over the last few days particularly bad tonight. She reports that she has had cough productive of yellow sputum. No sweats, chills. She has a history of chronic obstructive pulmonary disease and congestive heart failure. She reports that she smokes daily. Unsure if she takes a diuretic. Follows with a senior environmental engineer Ken[place]. She denies any leg swelling. Related Data Home Medications Medication Instructions Recorded Confirmed amlodipine 10 mg tablet 10 mg PO QDAY 09/24/22 03/18/23 aspirin 81 mg tablet,delayed 81 mg PO QDAY 09/24/22 03/18/23 release escitalopram oxalate 10 mg tablet 10 mg PO QDAY 09/24/22 03/18/23 gabapentin 800 mg tablet 800 mg PO Q12H 09/24/22 03/18/23 losartan 100 mg tablet 100 mg PO QDAY 09/24/22 03/18/23 methocarbamol 750 mg tablet 750 mg PO Q8H 09/24/22 03/18/23 pregabalin 150 mg capsule 150 mg PO Q12H 09/24/22 03/18/23 Allergies Allergy/AdvReac Type Severity Reaction Status Date / Time codeine AdvReac Intermediate Verified 09/24/22 17:23 ceclor AdvReac Intermediate Uncoded 09/24/22 17:23 Review of Systems ROS Status of ROS 10 or more systems reviewed and unremarkable except as noted in history and below [facility] Social History Smoking status: Current every day smoker Exam Narrative Exam Narrative: VITALS: I have reviewed the triage vital signs.? GENERAL: Adult female in moderate respiratory distress. NEURO: Alert and oriented. Moves all extremities. Face is symmetric and expressive.? EYES: PERRL. No scleral icterus or conjunctival injection. No discharge.? HENT: Normocephalic, atraumatic. Hearing is grossly intact. Nares grossly patent and without discharge. Mucous membranes moist.? NECK: No JVD. Patient moves neck without restriction.? CARDIO: Rhythm regular. Normal rate. No murmur, rub, or gallop. Pulses equal bilaterally in the upper and lower extremity. No lower extremity edema.? PULM: Rales at that the bases. Wet cough. Moderate conversational dyspnea. Moderate increased work of breathing. GI/: Abdomen is soft and non-tender. Normoactive bowel sounds.? EXTREMITIES: Symmetric muscle bulk. No joint swelling. No clubbing, cyanosis, or deformity.? SKIN: Warm and dry. Normal turgor. No rash or lesions appreciated.? PSYCH: Mood, affect, and interaction is appropriate to the setting.? Constitutional Vital Signs, click to edit/add: Last Vital Signs Temp 98.6 F 03/18/23 01:34 Pulse 80 03/18/23 03:20 Resp 14 03/18/23 03:20 BP 126/80 03/18/23 03:16 Pulse Ox 92 L 03/18/23 03:20 O2 Del Method Nasal Cannula 03/18/23 02:00 O2 Flow Rate 40 03/18/23 02:58 FiO2 50 03/18/23 02:58 Course Vital Signs Vital signs: Vital Signs Temperature 98.6 F 03/18/23 01:34 Pulse Rate 90 03/18/23 01:34 Respiratory Rate 30 H 03/18/23 01:34 Blood Pressure 181/134 H 03/18/23 01:34 Pulse Oximetry 87 L 03/18/23 01:34 Oxygen Delivery Method Nasal Cannula 03/18/23 01:34 Oxygen Delivery Flow Rate 6 03/18/23 01:34 Temperature 98.6 F 03/18/23 01:34 Pulse Rate 80 03/18/23 03:20 Respiratory Rate 14 03/18/23 03:20 Blood Pressure 126/80 03/18/23 03:16 Pulse Oximetry 92 L 03/18/23 03:20 Oxygen Delivery Method Nasal Cannula 03/18/23 02:00 Oxygen Delivery Flow Rate 40 03/18/23 02:58 Fraction of Inspired Oxygen 50 03/18/23 02:58 Medical Decision Making [facility] Narrative Medical decision making narrative: 62-year-old female to the emergency department chief complaint shortness of breath. She is hypoxic on her baseline O2 in the 70s. Respiratory was called and the patient was placed on high flow nasal cannula 40L 50% with great Improvement in both her oxygenation and her work of breathing. Clinically the story sounds like chronic obstructive pulmonary disease exacerbation however she also has a history of congestive heart failure she does have some rales at the bases. We'll obtain chest x-ray, basic labs. He should agrees with this plan. The patient received DuoNeb, steroids in route. Labwork reviewed and noted. Her pH is 7.27 seven hundred PCO2 is 57.1 suggesting a respiratory acidosis. ABG confirms her acute hypoxemic respiratory failure with a PO2 of 55.1 on 6 L nasal cannula. Chest x-ray is consistent with pulmonary edema. Pro-Beny is negative. Troponin negative. BNP is significantly elevated at five thousand fifty-eight. Lasix was given. Her pressure is normal, I don't believe this is flash pulm edema. She has a combination of CHF and COPD Exacerbation. No acute infectious process is suspected. The patient is not septic. Her abnormal vitals are due to her COPD/ CHF exacerbation. Case will be discussed with the hospitalist for admission. She remained comfortable on the HFNC with stable settings. Medical Records Medical records reviewed: Yes I reviewed the patient's medical records Lab Data Lab results reviewed: Yes I reviewed the patient's lab results Labs: Lab Results 03/18/23 03/18/23 03/18/23 Range/Units 01:47 01:50 01:52 WBC 17.7 H (4.0-11.0) 10^3/uL RBC 5.06 (4.20-5.40) 10^6/uL Hgb 13.4 (12.0-16.0) g/dL Hct 43.7 (36.0-48.0) % MCV 86.4 (81.0-99.0) fL MCH 26.5 L (26.7-34.0) pg MCHC 30.7 (29.9-35.2) g/dL RDW 18.4 H (11.0-15.0) % Plt Count 336 (150-450) 10^3/uL MPV 9.2 L (9.5-13.5) fL Neut % (Auto) 86.7 H (43.0-75.0) % Lymph % (Auto) 7.2 L (20.5-60.0) % [place] % (Auto) 4.2 (1.7-12.0) % Eos % (Auto) 0.1 L (0.9-7.0) % Baso % (Auto) 0.3 (0.2-2.0) % Neut # (Auto) 15.3 H (1.4-6.5) 10^3/uL Lymph # (Auto) 1.3 (1.2-3.8) 10^3/uL [place] # (Auto) 0.7 (0.3-0.8) 10^3/uL Eos # (Auto) 0.0 (0.0-0.7) 10^3/uL Baso # (Auto) 0.1 (0.0-0.1) 10^3/uL Abs Immat Gran (auto) 0.26 H (0.00-0.03) 10^3/uL Imm/Tot Granulo (auto) 1.5 H (0.0-0.5) % PT 10.3 (9.0-11.6) sec INR 0.97 APTT 29.0 (22.3-36.2) sec Puncture Site R radial ABG pH 7.277 L* (7.350-7.450) ABG pCO2 57.1 H* (35.0-45.0) mmHg ABG pO2 55.1 L (80.0-100.0) mmHg ABG HCO3 26.6 H (22.0-26.0) mmol/L ABG O2 Saturation 89.1 % ABG Base Excess -0.2 (-2.0-2.0) mmol/L [place] Test Positive (POSITIVE) O2 Liters/Min 6 Sodium 133 L (136-145) mmol/L Potassium 3.5 (3.5-5.1) mmol/L Chloride 98 (98-107) mmol/L Carbon Dioxide 30.6 (21.0-32.0) mmol/L Anion Gap 7.9 BUN 31.0 H (7.0-18.0) mg/dL Creatinine 1.07 H (0.55-1.02) mg/dL Est GFR ( Amer) >60 (>=60) Est GFR (Non-Af Amer) 52 L (>=60) BUN/Creatinine Ratio 29.0 Glucose 190 H (74-106) mg/dL Lactate 0.7 (0.4-2.0) mmol/L Calcium 8.5 (8.5-10.1) mg/dL Total Bilirubin 0.4 (0.2-1.0) mg/dL AST 19 (15-37) U/L ALT 24 (14-59) U/L Alkaline Phosphatase 106 (46-116) U/L Troponin I High Sens 9.9 (4.0-51.3) pg/mL NT-Pro-B Natriuret Pep 5058.0 H* (<=900.0) pg/mL Total Protein 7.2 (6.4-8.2) g/dL Albumin 3.2 L (3.4-5.0) g/dL Globulin 4.0 g/dL Albumin/Globulin Ratio 0.8 Procalcitonin <0.05 (0.00-0.50) ng/mL Urine Color Lt. yellow (YELLOW) Urine Clarity Clear (CLEAR) Urine pH 6.5 (5.0-9.0) Ur Specific [place] 1.015 (1.005-1.025) Urine Protein 100 A (NEG/TRACE) mg/dL Urine Glucose (UA) Negative (NEGATIVE) mg/dL Urine Ketones Negative (NEGATIVE) mg/dL Urine Occult Blood Trace-i (NEGATIVE) Urine Nitrite Negative (NEGATIVE) Urine Bilirubin Negative (NEGATIVE) Urine Urobilinogen 0.2 (0.2-1.0) EU/dL Ur Leukocyte Esterase Negative (NEGATIVE) Urine RBC 0-2 (0-2) #/HPF Urine WBC None seen (NONE SEEN) #/HPF Ur Squamous Epith Cells Rare (NONE/RARE) #/LPF Ur Transition Epith Cell Rare A (NONE SEEN) #/LPF Urine Crystals None seen (None Seen) #/HPF Urine Bacteria None seen (NONE SEEN) #/HPF Urine Casts None seen (NONE SEEN) #/LPF Urine Mucus None seen (NONE SEEN) Ur Culture Indicated? Already ordered SARS-CoV-2 (PCR) (NEGATIVE) Influenza Type A Ag Influenza Type B Ag 03/18/23 Range/Units 02:00 WBC (4.0-11.0) 10^3/uL RBC (4.20-5.40) 10^6/uL Hgb (12.0-16.0) g/dL Hct (36.0-48.0) % MCV (81.0-99.0) fL MCH (26.7-34.0) pg MCHC (29.9-35.2) g/dL RDW (11.0-15.0) % Plt Count (150-450) 10^3/uL MPV (9.5-13.5) fL Neut % (Auto) (43.0-75.0) % Lymph % (Auto) (20.5-60.0) % [place] % (Auto) (1.7-12.0) % Eos % (Auto) (0.9-7.0) % Baso % (Auto) (0.2-2.0) % Neut # (Auto) (1.4-6.5) 10^3/uL Lymph # (Auto) (1.2-3.8) 10^3/uL [place] # (Auto) (0.3-0.8) 10^3/uL Eos # (Auto) (0.0-0.7) 10^3/uL Baso # (Auto) (0.0-0.1) 10^3/uL Abs Immat Gran (auto) (0.00-0.03) 10^3/uL Imm/Tot Granulo (auto) (0.0-0.5) % PT (9.0-11.6) sec INR APTT (22.3-36.2) sec Puncture Site ABG pH (7.350-7.450) ABG pCO2 (35.0-45.0) mmHg ABG pO2 (80.0-100.0) mmHg ABG HCO3 (22.0-26.0) mmol/L ABG O2 Saturation % ABG Base Excess (-2.0-2.0) mmol/L [place] Test (POSITIVE) O2 Liters/Min Sodium (136-145) mmol/L Potassium (3.5-5.1) mmol/L Chloride (98-107) mmol/L Carbon Dioxide (21.0-32.0) mmol/L Anion Gap BUN (7.0-18.0) mg/dL Creatinine (0.55-1.02) mg/dL Est GFR ( Amer) (>=60) Est GFR (Non-Af Amer) (>=60) BUN/Creatinine Ratio Glucose (74-106) mg/dL Lactate (0.4-2.0) mmol/L Calcium (8.5-10.1) mg/dL Total Bilirubin (0.2-1.0) mg/dL AST (15-37) U/L ALT (14-59) U/L Alkaline Phosphatase (46-116) U/L Troponin I High Sens (4.0-51.3) pg/mL NT-Pro-B Natriuret Pep (<=900.0) pg/mL Total Protein (6.4-8.2) g/dL Albumin (3.4-5.0) g/dL Globulin g/dL Albumin/Globulin Ratio Procalcitonin (0.00-0.50) ng/mL Urine Color (YELLOW) Urine Clarity (CLEAR) Urine pH (5.0-9.0) Ur Specific [place] (1.005-1.025) Urine Protein (NEG/TRACE) mg/dL Urine Glucose (UA) (NEGATIVE) mg/dL Urine Ketones (NEGATIVE) mg/dL Urine Occult Blood (NEGATIVE) Urine Nitrite (NEGATIVE) Urine Bilirubin (NEGATIVE) Urine Urobilinogen (0.2-1.0) EU/dL Ur Leukocyte Esterase (NEGATIVE) Urine RBC (0-2) #/HPF Urine WBC (NONE SEEN) #/HPF Ur Squamous Epith Cells (NONE/RARE) #/LPF Ur Transition Epith Cell (NONE SEEN) #/LPF Urine Crystals (None Seen) #/HPF Urine Bacteria (NONE SEEN) #/HPF Urine Casts (NONE SEEN) #/LPF Urine Mucus (NONE SEEN) Ur Culture Indicated? SARS-CoV-2 (PCR) Negative (NEGATIVE) Influenza Type A Ag Negative Influenza Type B Ag Negative Imaging Data Chest x-ray: Attestation: I have reviewed the pertinent imaging results. ECG Data Attestation: I personally reviewed and interpreted this ECG as follows: (Normal sinus rhythm @88. Incomplete right bundle branch block. No acute ischemic pattern. Normal QTC.) Critical Care Time Critical Care Time Attestation: Critical Care Procedure Note Authorized and Performed by: Arben Venegas, DO Total critical care time:? 35 min Due to a high probability of clinically significant, life threatening deterioration, the patient required my highest level of preparedness to intervene emergently and I personally spent this critical care time directly and personally managing the patient. This critical care time included obtaining a history; examining the patient; pulse oximetry; ordering and review of studies; arranging urgent treatment with development of a management plan; evaluation of patient's response to treatment; frequent reassessment; and, discussions with other providers. This critical care time was performed to assess and manage the high probability of imminent, life-threatening deterioration that could result in multi-organ failure. It was exclusive of separately billable procedures and treating other patients and teaching time. Please see MDM section and the rest of the note for further information on patient assessment and treatment. Discharge Plan Discharge Chief Complaint: Shortness of Breath/Dyspnea Clinical Impression: Acute exacerbation of CHF (congestive heart failure), Acute and chronic respiratory failure with hypoxia, Acute exacerbation of chronic obstructive pulmonary disease Patient Disposition: Admitted As Inpatient Time of Disposition Decision: 03:45 Condition: Serious Prescriptions / Home Meds: No Action amlodipine 10 mg tablet 10 mg PO QDAY aspirin 81 mg tablet,delayed release (DR/EC) 81 mg PO QDAY escitalopram oxalate 10 mg tablet 10 mg PO QDAY gabapentin 800 mg tablet 800 mg PO Q12H losartan 100 mg tablet 100 mg PO QDAY methocarbamol 750 mg tablet 750 mg PO Q8H pregabalin 150 mg capsule 150 mg PO Q12H Referrals: Physician,Non-Staff, MD [Primary Care Provider] - 1 week
--- NOTE | 2023-03-18 06:11 | CA_ITS ---
Patient Name: JONATAN SPENCER MR#: [id number] : 1960 Exam Date: 03/18/2023 Ordering Doctor: DR Blu Murray . ECHOCARDIOGRAM REPORT PROCEDURE: CA ECHO DOPPLER COMPLETE INDICATIONS: Dyspnea, elevated BNP, h/o CHF, COPD COMPARISON: None. DESCRIPTION: COMPLETE ECHOCARDIOGRAM Real-time transthoracic echocardiography with 2D, M-mode, spectral and color flow Doppler performed. QUALITY: Technical quality was good. 61 , 139#, BSA 1.62 m2 LEFT VENTRICLE: Small chamber size. Severe concentric left ventricular hypertrophy. LV EF: Global left ventricular systolic function is hyperdynamic; visually estimated ejection fraction is 65 to 70%. No significant wall motion abnormalities. DIASTOLIC: Grade II diastolic dysfunction. ATRIAL SEPTUM: Inadequately seen. LEFT ATRIUM: Mild dilatation. RIGHT ATRIUM: Normal chamber size. RIGHT VENTRICLE: Normal chamber size. Normal right ventricular systolic function. TRICUSPID VALVE: Normal mobility and thickness. Trivial regurgitation. Doppler studies reveal moderately (45-60) elevated right sided pressures. RVSP 49 mmHg MITRAL VALVE: Mildly thickened with normal mobility. No evidence of mitral valve stenosis. There is no mitral annular calcification. Trivial mitral regurgitation. AORTIC VALVE: Normal aortic valve. No visible sclerosis. Normal leaflet mobility. No evidence of aortic valve stenosis. No aortic regurgitation. AORTIC ROOT: Normal diameter and appearance. PULMONIC VALVE: Normal thickness and mobility. No stenosis. Trivial regurgitation. PERICARDIUM: No evidence of pericardial effusion. IVC: Collapses with inspirations. IVC is normal in size. CONCLUSION: 1. Global left ventricular systolic function is hyperdynamic; visually estimated ejection fraction 65 to 70% 2. Normal right ventricular size and systolic function 3. Severely increased left ventricular wall thickness 4. Grade 2, moderate diastolic dysfunction 5. The left atrium is mildly dilated 6. Moderately elevated right ventricular systolic pressure; RVSP 49 mmHg 7. No significant valvular abnormalities Adult Echocardiography Procedure Report Left Ventricle LVEDD (3.7 - 5.6 cm): 3.66 cm LVESD (2.2 - 4.0 cm): 2.27 cm LVIVS thickness (0.6 - 1.2 cm): 1.58 cm LVPW thickness (0.5 - 1.0 cm): 1.29 cm LVOT Max Gradient: 3 mm[Hg] Peak Velocity (LVOT): 93.20 cm/s Mean Velocity (LVOT): 63.20 cm/s LVOT Diameter 2.00 cm Left Ventricular Ejection Fraction: 69.10 % Left Atrium LA Volume Index (2D A2C): 81608 mm3 Left Atrium Systolic Dimension: 3.40 cm Mitral Valve MV E to A Ratio: 0.70 Mitral Valve A-Wave Peak Velocity: 99.70 cm/s Mitral Valve E-Wave Peak Velocity: 66.10 cm/s Cardiovascular Orifice Area: 3.24 cm2 Right Ventricle Aorta AO Root Diam: 3.30 cm Aortic Valve AoV Area (Peak Nam): 2.48 cm2 AoV Area (VTI): 2.99 cm2 Peak Velocity(Antegrade Flow): 118.00 cm/s Peak Gradient(Antegrade Flow): 6 mm[Hg] Mean Velocity(Antegrade Flow): 73.90 cm/s Mean Gradient(Antegrade Flow): 3 mm[Hg] Velocity Time Integral: 21.10 cm Tricuspid Valve Peak Velocity (Regurgitant Flow): 337.00 cm/s Peak Velocity: 62.70 cm/s Pulmonic Valve Peak Velocity: 115.00 cm/s, 125.00 cm/s Peak Gradient: 6 mm[Hg] Right Atrium Dictated by: Demetrio Tracey M.D. on 03/18/2023 at 15:14 Approved by: Demetrio Tracey M.D. on 03/18/2023 at 15:18
[2023-03-18 06:45] LABS: Glucometer 223 mg/dL (74-106)
[2023-03-18 07:18] LABS: Troponin I High Sensitivity 8.6 pg/mL (4.0-51.3)
[2023-03-18 07:25] LABS: Free T3 1.65 pg/mL (2.18-3.98); Thyroid Stimulating Hormone 1.363 uIU/mL (0.358-3.740)
[2023-03-18] MEDS: METHYLPREDNISOLONE SOD SUCC PF 125 MG/2 ML VIAL IVP ×3 (07:29→17:22)
[2023-03-18] MEDS: LEVOFLOXACIN IN DEXTROSE 5 % 750 MG/150 ML IV.SOLN 100 MG IV (07:30)
[2023-03-18] MEDS: NICOTINE 21 MG PATCH.TD24 TD (07:30)
--- NOTE | 2023-03-18 08:15 | P.HP_ITS ---
H&P: HPI History of Present Illness Chief complaint: CHEST PAIN Narrative: Patient has been feeling ill for the last couple days, just got worse and presented to the emergency room. In ER found to have significant hypoxia with O2 sat less than 88% on room air, placed on supplemental oxygen with good result. Patient does state her breathing does feel better to her. She does use 2 L baseline at home, currently on 4 L. Placed on Vapotherm for short period of time. ER workup found patient to have acute exacerbation of COPD as well as acute combined congestive heart failure. Review of Systems ROS Status of ROS 10 or more systems reviewed and unremark able except as noted in history and below [facility] Medical History (Updated 03/18/23 @ 06:01 by Carly Toth RN) Smoker ?F17.200 - Nicotine dependence, unspecified, uncomplicated (ICD-10) Fall ?W19.XXXA - Unspecified fall, initial encounter (ICD-10) Oxygen dependent ?Z99.81 - Dependence on supplemental oxygen (ICD-10) CHF (congestive heart failure) ?I50.9 - Heart failure, unspecified (ICD-10) HTN (hypertension) ?I10 - Essential (primary) hypertension (ICD-10) Heart attack ?I21.9 - Acute myocardial infarction, unspecified (ICD-10) COPD (chronic obstructive pulmonary disease) ?J44.9 - Chronic obstructive pulmonary disease, unspecified (ICD-10) Surgical History (Updated 03/18/23 @ 06:03 by Carly Toth RN) Stented coronary artery ?Z95.5 - Presence of coronary angioplasty implant and graft (ICD-10) Social History Smoking status: Current every day smoker Meds Home Medications and Allergies Home Medications Medication Instructions Recorded Confirmed Type amlodipine 10 mg tablet 10 mg PO QDAY 09/24/22 03/18/23 History aspirin 81 mg tablet,delayed 81 mg PO QDAY 09/24/22 03/18/23 History release escitalopram oxalate 10 mg tablet 10 mg PO QDAY 09/24/22 03/18/23 History gabapentin 800 mg tablet 800 mg PO Q12H 09/24/22 03/18/23 History losartan 100 mg tablet 100 mg PO QDAY 09/24/22 03/18/23 History methocarbamol 750 mg tablet 750 mg PO Q8H 09/24/22 03/18/23 History pregabalin 150 mg capsule 150 mg PO Q12H 09/24/22 03/18/23 History Allergies Allergy/AdvReac Type Severity Reaction Status Date / Time codeine AdvReac Intermediate Verified 09/24/22 17:23 ceclor AdvReac Intermediate Uncoded 09/24/22 17:23 Exam Constitutional Vital Signs, click to edit/add: Last Vital Signs Temp 99 F 03/18/23 07:37 Pulse 92 H 03/18/23 07:42 Resp 24 03/18/23 07:37 BP 189/96 H 03/18/23 07:37 Pulse Ox 93 L 03/18/23 07:37 O2 Del Method Nasal Cannula 03/18/23 07:37 O2 Flow Rate 3 03/18/23 05:45 FiO2 50 03/18/23 02:58 Documenting provider has reviewed patient's vital signs: yes Common normals: apparent distress Chest Common normals: inspection of chest normal Respiratory Common normals: no retractions; abnormal respiratory effort (Moderate dyspnea) and not clear to ascultation bilaterally Auscultation: rhonchi and diminished lung sounds Cardio Common normals: regular rate, regular rhythm and no murmurs Extremity Common normals: abnormal to inspection (1+ edema) Results Labs Labs: Short CBC 03/18/23 Range/Units 01:52 WBC 17.7 H (4.0-11.0) 10^3/uL Hgb 13.4 (12.0-16.0) g/dL Hct 43.7 (36.0-48.0) % Plt Count 336 (150-450) 10^3/uL BMP 03/18/23 01:52 Sodium 133 L Potassium 3.5 Chloride 98 Carbon Dioxide 30.6 BUN 31.0 H Creatinine 1.07 H Glucose 190 H Calcium 8.5 Liver Function 03/18/23 Range/Units 01:52 Total Bilirubin 0.4 (0.2-1.0) mg/dL AST 19 (15-37) U/L ALT 24 (14-59) U/L Alkaline Phosphatase 106 (46-116) U/L Albumin 3.2 L (3.4-5.0) g/dL Urine 03/18/23 Range/Units 01:50 Urine Color Lt. yellow (YELLOW) Urine Clarity Clear (CLEAR) Urine pH 6.5 (5.0-9.0) Ur Specific [place] 1.015 (1.005-1.025) Urine Protein 100 A (NEG/TRACE) mg/dL Urine Glucose (UA) Negative (NEGATIVE) mg/dL ABG ABG results: 03/18/23 01:47 ABG pH 7.277 L* ABG pCO2 57.1 H* ABG pO2 55.1 L ABG HCO3 26.6 H ABG O2 Saturation 89.1 ABG Base Excess -0.2 Assessment and Plan Assessment and Plan (1) Acute exacerbation of chronic obstructive pulmonary disease: (2) Acute and chronic respiratory failure with hypoxia: (3) Acute exacerbation of CHF (congestive heart failure): Plan Uncontrolled hypertension, acute hypoxia 85% on 2 L, leukocytosis, respiratory metabolic acidosis secondary to acute exacerbation of COPD secondary to acute bronchitis and complicated by acute combined congestive heart failure. Acute exacerbation of COPD secondary to acute bronchitis-steroids, antibiotics, frequent aerosol treatments. Try to obtain sputum culture-check CTA based on the acuteness of her symptoms Acute combined congestive heart failure-check echocardiogram, start Bumex drip. Leukocytosis likely secondary to above-monitor daily L Hyponatremia is possible related to her heart failure monitor daily Borderline hyperglycemia-monitor Moderate protein calorie malnutrition-diet management Uncontrolled hypertension complicating the above-continue with medications and PRNs With acute onset and the severity of her current symptoms, likely 2 to 3-day hospital stay with the patient as inpatient in the ICU
--- NOTE | 2023-03-18 08:23 | CT_ITS ---
[address] [address] Patient Name: JONATAN SPENCER MRN: [id number] date: 1960 Sex: F Assigned Patient Location: ICU Current Patient Location: ICU Accession/Order Number: [id number] Exam Date: 03/18/2023 09:45 Report Date: 03/18/2023 11:03 At the request of: GASTON DE LA FUENTE Procedure: CT angio chest EXAM: CT angio chest HISTORY: acute hypoxia COMPARISON: None. TECHNIQUE: Axial CT images were obtained of the chest with intravenous contrast in the pulmonary arterial phase. Multiplanar and MIP reconstructions were performed. CHEST FINDINGS: Lungs/Pleura: There are trace peripheral reticular and groundglass opacities present in the right lung. Atelectasis or scarring is present in the lingula. No pleural effusion or pneumothorax. Pulmonary Arteries: The central pulmonary arteries are enlarged, possibly due to chronic pulmonary arterial hypertension. No pulmonary embolus is identified. Cardiovascular: The heart is enlarged. There are advanced coronary artery calcifications present. Moderate scattered atherosclerotic calcifications are present throughout the thoracic aorta and great vessels Pericardium: No effusion. Mediastinum: Unremarkable. Lymph Nodes: A precarinal lymph node is prominent measuring 2.1 x 1.5 cm. Bones: No acute osseous abnormality. Mild multilevel degenerative changes are present in the visualized spine. Soft tissues: Unremarkable. Upper Abdomen: Prior cholecystectomy. The partially visualized right kidney is atrophic. An adrenal nodule on the right adrenal gland measures 2.2 cm, likely representing an adenoma. CT/CT angio chest IMPRESSION: 1. No pulmonary embolus identified. 2. Trace peripheral reticular and groundglass opacities in the right lung, possibly due to mild acute or subacute edema or other pneumonitis. 3. Enlargement of the central pulmonary arteries, possibly due to chronic pulmonary arterial hypertension. 4. Cardiomegaly and advanced coronary artery atherosclerotic disease. 5. Prominent precarinal lymph node, which is nonspecific, and possibly reactive. Electronically authenticated by: DARIEN GIVENS Date: 03/18/2023 11:03
[2023-03-18] MEDS: LOSARTAN POTASSIUM 50 MG TABLET 100 MG PO (08:35)
[2023-03-18] MEDS: GABAPENTIN 400 MG CAPSULE 800 MG PO ×3 (08:35→20:19)
[2023-03-18] MEDS: AMLODIPINE BESYLATE 5 MG TABLET 10 MG PO (08:35)
[2023-03-18] MEDS: ASPIRIN 81 MG TABLET.DR PO (08:35)
[2023-03-18] MEDS: L. ACIDOPHILUS/L.BULGARICUS 1 PACKET GRAN.PACK PO ×2 (08:35→20:18)
[2023-03-18] MEDS: PREGABALIN 75 MG CAPSULE 150 MG PO (08:36)
[2023-03-18] MEDS: ESCITALOPRAM 10 MG TABLET PO (08:36)
[2023-03-18] MEDS: BENZONATATE 100 MG CAPSULE 200 MG PO ×2 (08:37→16:07)
[2023-03-18] MEDS: INSULIN ASPART 300 UNIT/3 ML PEN SUBQ ×4 (08:41→20:20)
--- NOTE | 2023-03-18 08:44 | CM.NOTE ---
Rounds made with Dr. Murray. Wears chronic oxygen @ 2L/NC. Dr. Murray discusses plan to order Echocardiogram and Sputum C&S. Ms. Olivarez complaining of pain (states has fractured pelvis) and would like a nicotene patch--Dr. Murray will order. No plan for discharge today.
[2023-03-18] MEDS: METHOCARBAMOL 500 MG TABLET 750 MG PO ×3 (09:18→20:19)
[2023-03-18] MEDS: KETOROLAC TROMETHAMINE 30 MG/ML VIAL IVP ×3 (09:18→20:18)
[2023-03-18 09:35] LABS: Troponin I High Sensitivity 10.1 pg/mL (4.0-51.3)
[2023-03-18] MEDS: PIPERACILLIN SODIUM/TAZOBACTAM 3.375 GM in 0.9 % SODIUM CHLORIDE 50 ML IV ×2 (10:14→16:08)
[2023-03-18] MEDS: BUMETANIDE 10 MG in 0.9 % SODIUM CHLORIDE 160 ML 20 MG IV (10:44)
[2023-03-18 11:45] LABS: Glucometer 271 mg/dL (74-106)
[2023-03-18] MEDS: IPRATROPIUM/ALBUTEROL SULFATE 3 ML AMPUL.NEB IH ×3 (11:52→20:04)
--- NOTE | 2023-03-18 14:04 | CM.NOTE ---
[facility] from [facility] at discharge.
[2023-03-18 16:06] LABS: SARS-CoV-2 NAA NOT DETECTED (NOT DETECTE)
[2023-03-18 16:17] LABS: Glucometer 263 mg/dL (74-106)
[2023-03-18 20:11] LABS: Glucometer 219 mg/dL (74-106)
[2023-03-18] MEDS: GUAIFENESIN/DEXTROMETHORPHAN TAB.ER.12H 1 TAB PO (20:18)
[2023-03-19] VITALS (21 sets, daily range): BP systolic 99–164; BP diastolic 59–79; PULSE 77–95; RESP 16–22; TEMP 36.4–36.8; O2SAT 91–96; BMI 25.7
[2023-03-19] MEDS: BENZONATATE 100 MG CAPSULE 200 MG PO ×4 (00:43→23:38)
[2023-03-19] MEDS: PIPERACILLIN SODIUM/TAZOBACTAM 3.375 GM in 0.9 % SODIUM CHLORIDE 50 ML IV ×3 (00:43→18:30)
[2023-03-19] MEDS: METHYLPREDNISOLONE SOD SUCC PF 125 MG/2 ML VIAL IVP ×2 (00:43→05:53)
[2023-03-19] MEDS: KETOROLAC TROMETHAMINE 30 MG/ML VIAL IVP (03:02)
[2023-03-19] MEDS: IPRATROPIUM/ALBUTEROL SULFATE 3 ML AMPUL.NEB IH ×3 (04:19→20:08)
[2023-03-19] MEDS: OXYCODONE HCL/ACETAMINOPHEN 5MG/325MG 1 TAB PO ×5 (04:49→20:39)
[2023-03-19 05:27] LABS: Basophils Percent Auto 0.1 % (0.2-2.0); Hematocrit 46.1 % (36.0-48.0); Hemoglobin 14.2 g/dL (12.0-16.0); Immature Granulocytes Abs Auto 0.09 10^3/uL (0.00-0.03); Immature Granulocytes Pct Auto 0.9 % (0.0-0.5); Lymphocytes Absolute Auto 0.6 10^3/uL (1.2-3.8); Lymphocytes Percent Auto 5.5 % (20.5-60.0); Mean Corpuscular HGB Conc 30.8 g/dL (29.9-35.2); Mean Corpuscular Hemoglobin 26.4 pg (26.7-34.0); Mean Corpuscular Volume 85.8 fL (81.0-99.0); Mean Platelet Volume 9.3 fL (9.5-13.5); Monocytes Absolute Auto 0.1 10^3/uL (0.3-0.8); Monocytes Percent Auto 1.2 % (1.7-12.0); Neutrophils Absolute Auto 9.7 10^3/uL (1.4-6.5); Neutrophils Percent Auto 92.3 % (43.0-75.0); Platelet Count 317 10^3/uL (150-450); Red Blood Count 5.37 10^6/uL (4.20-5.40); Red Cell Distribution Width 19.2 % (11.0-15.0); White Blood Count 10.5 10^3/uL (4.0-11.0)
[2023-03-19] MEDS: LEVOTHYROXINE SODIUM 75 MCG TABLET 150 MCG PO (05:54)
[2023-03-19] MEDS: LEVOFLOXACIN IN DEXTROSE 5 % 750 MG/150 ML IV.SOLN 100 MG IV (05:54)
[2023-03-19] MEDS: GABAPENTIN 400 MG CAPSULE 800 MG PO ×4 (05:54→23:35)
[2023-03-19 05:57] LABS: Alanine Aminotransferase 20 U/L (14-59); Albumin Globulin Ratio 0.8; Alkaline Phosphatase 95 U/L (46-116); Anion Gap 12.2; Aspartate Amino Transferase 10 U/L (15-37); BUN Creatinine Ratio 28.7; Bilirubin Total 0.4 mg/dL (0.2-1.0); Calcium 8.1 mg/dL (8.5-10.1); Carbon Dioxide 32.8 mmol/L (21.0-32.0); Chloride 100 mmol/L (98-107); Estimated GFR (African America 40 (>=60); Estimated GFR (Non-African Ame 33 (>=60); Globulin 3.7 g/dL; Glucose 236 mg/dL (74-106); Sodium 141 mmol/L (136-145); Total Protein 6.7 g/dL (6.4-8.2)
[2023-03-19] MEDS: METHOCARBAMOL 500 MG TABLET 750 MG PO ×3 (05:57→23:35)
[2023-03-19] MEDS: LIOTHYRONINE SODIUM 5 MCG TABLET 10 MCG PO (06:28)
--- NOTE | 2023-03-19 07:11 | CM.NOTE ---
Rounding with Dr. Murray. Discussed home oxygen flow at 2 liters and possible discharge tomorrow. No anticipated discharge needs at this time. Continue to monitor.
[2023-03-19] MEDS: GUAIFENESIN/DEXTROMETHORPHAN TAB.ER.12H 1 TAB PO ×2 (09:06→20:39)
[2023-03-19] MEDS: LOSARTAN POTASSIUM 50 MG TABLET 100 MG PO (09:06)
[2023-03-19] MEDS: AMLODIPINE BESYLATE 5 MG TABLET 10 MG PO (09:06)
[2023-03-19] MEDS: ACETAMINOPHEN 500 MG TABLET 1000 MG PO ×2 (09:06→15:03)
[2023-03-19] MEDS: L. ACIDOPHILUS/L.BULGARICUS 1 PACKET GRAN.PACK PO ×2 (09:06→20:39)
[2023-03-19] MEDS: ASPIRIN 81 MG TABLET.DR PO (09:06)
[2023-03-19] MEDS: INSULIN ASPART 300 UNIT/3 ML PEN SUBQ ×4 (09:09→20:40)
--- NOTE | 2023-03-19 10:17 | P.PN_ITS ---
Progress Note: Subjective Subjective Interval history: Still shortness of breath with any activity but somewhat better from her standpoint Exam Constitutional Vital Signs, click to edit/add: Last Vital Signs Temp 98.3 F 03/19/23 08:00 Pulse 95 H 03/19/23 09:52 Resp 18 03/19/23 08:00 BP 164/78 H 03/19/23 08:00 Pulse Ox 93 L 03/19/23 08:00 O2 Del Method Nasal Cannula 03/19/23 08:00 O2 Flow Rate 3 03/19/23 08:00 FiO2 50 03/18/23 02:58 Documenting provider has reviewed patient's vital signs: yes Common normals: apparent distress Chest Common normals: inspection of chest normal Respiratory Common normals: normal respiratory effort (Moderate dyspnea) and no retractions; not clear to ascultation bilaterally Auscultation: rhonchi (Definitely improved from previous day) and diminished lung sounds Cardio Common normals: regular rate, regular rhythm and no murmurs Extremity Common normals: abnormal to inspection (1+ edema) Progress Note: Objective Labs Labs: Short CBC 03/19/23 Range/Units 04:58 WBC 10.5 (4.0-11.0) 10^3/uL Hgb 14.2 (12.0-16.0) g/dL Hct 46.1 (36.0-48.0) % Plt Count 317 (150-450) 10^3/uL BMP 03/19/23 04:58 Sodium 141 Potassium 4.0 Chloride 100 Carbon Dioxide 32.8 H BUN 45.0 H Creatinine 1.57 H Glucose 236 H Calcium 8.1 L Liver Function 03/19/23 Range/Units 04:58 Total Bilirubin 0.4 (0.2-1.0) mg/dL AST 10 L (15-37) U/L ALT 20 (14-59) U/L Alkaline Phosphatase 95 (46-116) U/L Albumin 3.0 L (3.4-5.0) g/dL Progress Note: A&P Assessment and Plan (1) Acute exacerbation of chronic obstructive pulmonary disease: (2) Acute and chronic respiratory failure with hypoxia: (3) Acute exacerbation of CHF (congestive heart failure): Plan Uncontrolled hypertension, acute hypoxia 85% on 2 L, leukocytosis, respiratory metabolic acidosis secondary to acute exacerbation of COPD secondary to acute bronchitis and complicated by acute combined congestive heart failure.-Overall better today Acute exacerbation of COPD secondary to acute bronchitis-steroids, antibiotics, frequent aerosol treatments. Try to obtain sputum culture-overall improving so we will continue with current treatment plan Acute combined congestive heart failure--no edema today, continue to monitor Leukocytosis likely secondary to above-monitor daily Hyponatremia is possible related to her heart failure monitor daily Borderline hyperglycemia-monitor Moderate protein calorie malnutrition-diet management Uncontrolled hypertension complicating the above-continue with medications and PRNs Overall patient is improved there is a possibility for discharge tomorrow if patient remains stable and gets back down to her baseline supplemental oxygen of 2 L.
--- NOTE | 2023-03-19 10:43 | DIETREC ---
Recommend change diet order to 1800 kcal CCD. Also recommend 237 mL Ensure BID.
[2023-03-19 12:23] LABS: Glucometer 255 mg/dL (74-106)
[2023-03-19] MEDS: NICOTINE 21 MG PATCH.TD24 TD (12:55)
[2023-03-19] MEDS: METHYLPREDNISOLONE SOD SUCC PF 125 MG/2 ML VIAL 60 MG IVP ×3 (12:55→23:35)
[2023-03-19 17:09] LABS: Glucometer 142 mg/dL (74-106)
[2023-03-19 20:14] LABS: Glucometer 252 mg/dL (74-106)
[2023-03-20] VITALS (8 sets, daily range): BP systolic 123–137; BP diastolic 67; PULSE 78–92; RESP 18–20; TEMP 36.6–36.7; O2SAT 92–96
[2023-03-20] MEDS: PIPERACILLIN SODIUM/TAZOBACTAM 3.375 GM in 0.9 % SODIUM CHLORIDE 50 ML IV ×2 (01:07→08:27)
[2023-03-20] MEDS: OXYCODONE HCL/ACETAMINOPHEN 5MG/325MG 1 TAB PO ×3 (01:07→10:09)
[2023-03-20 04:37] LABS: Hematocrit 43.9 % (36.0-48.0); Hemoglobin 13.3 g/dL (12.0-16.0); Immature Granulocytes Abs Auto 0.05 10^3/uL (0.00-0.03); Immature Granulocytes Pct Auto 0.5 % (0.0-0.5); Lymphocytes Absolute Auto 0.3 10^3/uL (1.2-3.8); Lymphocytes Percent Auto 3.1 % (20.5-60.0); Mean Corpuscular HGB Conc 30.3 g/dL (29.9-35.2); Mean Corpuscular Hemoglobin 26.1 pg (26.7-34.0); Mean Corpuscular Volume 86.2 fL (81.0-99.0); Monocytes Absolute Auto 0.2 10^3/uL (0.3-0.8); Monocytes Percent Auto 1.8 % (1.7-12.0); Neutrophils Absolute Auto 10.2 10^3/uL (1.4-6.5); Neutrophils Percent Auto 94.6 % (43.0-75.0); Platelet Count 300 10^3/uL (150-450); Red Blood Count 5.09 10^6/uL (4.20-5.40); Red Cell Distribution Width 18.8 % (11.0-15.0); White Blood Count 10.8 10^3/uL (4.0-11.0)
[2023-03-20 05:07] LABS: Alanine Aminotransferase 20 U/L (14-59); Albumin Globulin Ratio 0.8; Albumin Level 2.7 g/dL (3.4-5.0); Alkaline Phosphatase 76 U/L (46-116); Anion Gap 10.1; Aspartate Amino Transferase 9 U/L (15-37); BUN Creatinine Ratio 32.1; Bilirubin Total 0.4 mg/dL (0.2-1.0); Calcium 8.5 mg/dL (8.5-10.1); Carbon Dioxide 32.6 mmol/L (21.0-32.0); Chloride 99 mmol/L (98-107); Estimated GFR (African America 40 (>=60); Estimated GFR (Non-African Ame 33 (>=60); Globulin 3.5 g/dL; Glucose 343 mg/dL (74-106); Potassium 3.7 mmol/L (3.5-5.1); Sodium 138 mmol/L (136-145); Total Protein 6.2 g/dL (6.4-8.2); Troponin I High Sensitivity 6.2 pg/mL (4.0-51.3)
[2023-03-20] MEDS: LIOTHYRONINE SODIUM 5 MCG TABLET 10 MCG PO (06:22)
[2023-03-20] MEDS: LEVOTHYROXINE SODIUM 75 MCG TABLET 150 MCG PO (06:22)
[2023-03-20] MEDS: METHOCARBAMOL 500 MG TABLET 750 MG PO (06:22)
[2023-03-20] MEDS: GABAPENTIN 400 MG CAPSULE 800 MG PO (06:22)
[2023-03-20] MEDS: LEVOFLOXACIN IN DEXTROSE 5 % 750 MG/150 ML IV.SOLN 100 MG IV (06:23)
[2023-03-20] MEDS: METHYLPREDNISOLONE SOD SUCC PF 125 MG/2 ML VIAL 40 MG IVP (06:31)
[2023-03-20] MEDS: INSULIN ASPART 300 UNIT/3 ML PEN SUBQ (07:52)
--- NOTE | 2023-03-20 07:59 | P.DS_ITS ---
DS: Providers Provider Date of admission: 03/18/23 05:38 Primary care physician: Non-Staff Physician, DS: Diagnosis Discharge Diagnosis (1) Acute exacerbation of chronic obstructive pulmonary disease: (2) Acute and chronic respiratory failure with hypoxia: (3) Acute exacerbation of CHF (congestive heart failure): Plan Uncontrolled hypertension, acute hypoxia 85% on 2 L, leukocytosis, respiratory metabolic acidosis secondary to acute exacerbation of COPD secondary to acute bronchitis and complicated by acute combined congestive heart failure with acute hypoxic resp failure Acute exacerbation of COPD secondary to acute bronchitis Acute combined congestive heart failure Leukocytosis Hyponatremia Moderate protein calorie malnutrition Uncontrolled hypertension DS: Summary Hospital Course Hospital Course: Patient presented to emergency with increasing shortness of breath. Found to have acute combined congestive heart failure, right middle right lower lobe pneumonia with acute exacerbation of COPD resulting in severe sepsis with multisystem organ dysfunction and acute hypoxic respiratory failure. Patient was placed on steroids, aerosols, IV antibiotics. She did improve slowly throughout the hospital stay but is much improved this morning. Yesterday late we were able to wean her down to her baseline supplemental oxygen of 2 L. She feels like she is stable enough for discharge to home. Only other significant finding was some mild hypothyroidism which we did very be monitored as an outpatient supplementation started here with Cytomel. Medications see list. Follow-up with PCP within the next week. Time Spent with Patient Time attestation: Total time spent providing and/or coordinating discharge services: Exam Constitutional Vital Signs, click to edit/add: Last Vital Signs Temp 98 F 03/20/23 04:00 Pulse 78 03/20/23 06:00 Resp 18 03/20/23 04:00 BP 137/67 03/20/23 04:00 Pulse Ox 93 L 03/20/23 04:09 O2 Del Method Nasal Cannula 03/20/23 04:09 O2 Flow Rate 2 03/20/23 04:09 FiO2 50 03/18/23 02:58 Documenting provider has reviewed patient's vital signs: yes Common normals: apparent distress Chest Common normals: inspection of chest normal Respiratory Common normals: normal respiratory effort (Moderate dyspnea) and no retractions; not clear to ascultation bilaterally Auscultation: rhonchi (Much better air exchange today, minimal rhonchi persisting may be baseline) and diminished lung sounds Cardio Common normals: regular rate, regular rhythm and no murmurs Extremity Common normals: abnormal to inspection (1+ edema) DS: Data Data Completed and Pending Labs on day of discharge: Labs from last 24 hours 03/20/23 03/19/23 03/19/23 04:21 20:13 16:58 WBC 10.8 RBC 5.09 Hgb 13.3 Hct 43.9 MCV 86.2 MCH 26.1 L MCHC 30.3 RDW 18.8 H Plt Count 300 MPV 9.0 L Neut % (Auto) 94.6 H Lymph % (Auto) 3.1 L Gonzales % (Auto) 1.8 Eos % (Auto) 0.0 L Baso % (Auto) 0.0 L Neut # (Auto) 10.2 H Lymph # (Auto) 0.3 L Gonzales # (Auto) 0.2 L Eos # (Auto) 0.0 Baso # (Auto) 0.0 Abs Immat Gran (auto) 0.05 H Imm/Tot Granulo (auto) 0.5 Sodium 138 Potassium 3.7 Chloride 99 Carbon Dioxide 32.6 H Anion Gap 10.1 BUN 51.0 H Creatinine 1.59 H Est GFR ( Amer) 40 L Est GFR (Non-Af Amer) 33 L BUN/Creatinine Ratio 32.1 Glucose 343 H Calcium 8.5 Total Bilirubin 0.4 AST 9 L ALT 20 Alkaline Phosphatase 76 Troponin I High Sens 6.2 NT-Pro-B Natriuret Pep 337.0 Total Protein 6.2 L Albumin 2.7 L Globulin 3.5 Albumin/Globulin Ratio 0.8 POC Glucose 252 H 142 H 03/19/23 12:21 WBC RBC Hgb Hct MCV MCH MCHC RDW Plt Count MPV Neut % (Auto) Lymph % (Auto) Gonzales % (Auto) Eos % (Auto) Baso % (Auto) Neut # (Auto) Lymph # (Auto) Gonzales # (Auto) Eos # (Auto) Baso # (Auto) Abs Immat Gran (auto) Imm/Tot Granulo (auto) Sodium Potassium Chloride Carbon Dioxide Anion Gap BUN Creatinine Est GFR ( Amer) Est GFR (Non-Af Amer) BUN/Creatinine Ratio Glucose Calcium Total Bilirubin AST ALT Alkaline Phosphatase Troponin I High Sens NT-Pro-B Natriuret Pep Total Protein Albumin Globulin Albumin/Globulin Ratio POC Glucose 255 H Preliminary micro results at discharge 03/18/23 02:02 - Preliminary Blood NO GROWTH AT 36-48 HOURS. FINAL TO FOLLOW. 03/18/23 01:52 Blood Culture Result 1 - Preliminary Blood NO GROWTH AT 36-48 HOURS. FINAL TO FOLLOW. Discharge Plan Discharge Disposition: Home, Self-Care Condition: Serious Discharge Medications: New liothyronine 5 mcg Tablet 10 mcg PO ACB Qty: 60 11RF levofloxacin 750 mg tablet 750 mg PO DAILY 10 Days Qty: 10 0RF prednisone 10 mg tablet 50 mg PO DAILY Qty: 47 0RF Rx Instructions: 5/day for 3 days. 4/day for 3 days, 3/day for 3 days, 2/day for 3 days, 1/day for 3 days, 1/2 /day for 4 days Continued dextromethorphan-guaifenesin [Mucinex DM] 60-1,200 mg tablet extended release 12 hr 1 tab PO BID levothyroxine [Synthroid] 150 mcg tablet 150 mcg PO DAILY oxycodone-acetaminophen [Percocet] 5-325 mg tablet 1 tab PO Q6H PRN (Reason: pain) gabapentin [Neurontin] 800 mg tablet 800 mg PO QID tiotropium bromide [Spiriva with HandiHaler] 18 mcg capsule, w/inhalation device 1 cap inhalation DAILY Rx Instructions: puncture 1 cap using device; one dose = 2 inhalations amlodipine 10 mg tablet 10 mg PO QDAY aspirin 81 mg tablet,delayed release (DR/EC) 81 mg PO QDAY losartan 100 mg tablet 100 mg PO QDAY methocarbamol 750 mg tablet 750 mg PO QID Discontinued doxycycline hyclate 100 mg tablet 100 mg PO BID Rx Instructions: started 03/14/23 for 7 days Trip Follower/Neck Band Maker Instructions: [employer] [phone] Forms: Portal Instructions Follow Up Appointments: @ 9:15am with Dr. Moreno [phone]
--- NOTE | 2023-03-20 08:05 | CM.NOTE ---
Rounds made with Dr. Murray, pt will discharge to home with services ([facility]).
[2023-03-20] MEDS: LOSARTAN POTASSIUM 50 MG TABLET 100 MG PO (08:26)
[2023-03-20] MEDS: GUAIFENESIN/DEXTROMETHORPHAN TAB.ER.12H 1 TAB PO (08:26)
[2023-03-20] MEDS: AMLODIPINE BESYLATE 5 MG TABLET 10 MG PO (08:26)
[2023-03-20] MEDS: ASPIRIN 81 MG TABLET.DR PO (08:26)
[2023-03-20] MEDS: BENZONATATE 100 MG CAPSULE 200 MG PO (08:29)
--- NOTE | 2023-03-20 10:02 | CM.NOTE ---
Discharge summary, Med-list, and CRF faxed to [facility] for discharge.
[2023-03-20] MEDS: IPRATROPIUM/ALBUTEROL SULFATE 3 ML AMPUL.NEB IH (11:29)
--- NOTE | 2023-03-21 13:27 | CM.DCFOLLOWU ---
First attempt at discharge follow up call attempted, unable to reach patient at this time, no answer.
== END 2023-03-20 12:20 | disposition home health service (06) | DRG 720 ==
LOC: ER 03:46 → ICU 05:38 → MS 03-19 01:21
PROVIDERS: Admitting Provider Family Medicine; Emergency Provider Student in an Organized Health Care Education/Training Program; Visit Provider Family Medicine
DX: A41.9 Sepsis, unspecified organism (principal); R65.20 Severe sepsis without septic shock; J18.9 Pneumonia, unspecified organism; I11.0 Hypertensive heart disease with heart failure; J20.9 Acute bronchitis, unspecified; I50.43 Acute on chronic combined systolic (congestive) and diastolic (congestive) heart failure; J44.0 Chronic obstructive pulmonary disease with (acute) lower respiratory infection; J96.21 Acute and chronic respiratory failure with hypoxia; E87.1 Hypo-osmolality and hyponatremia; F17.200 Nicotine dependence, unspecified, uncomplicated; E44.0 Moderate protein-calorie malnutrition; Z68.27 Body mass index [BMI] 27.0-27.9, adult; I25.2 Old myocardial infarction; E03.9 Hypothyroidism, unspecified; Z88.1 Allergy status to other antibiotic agents; Z88.5 Allergy status to narcotic agent; Z95.5 Presence of coronary angioplasty implant and graft; Z79.82 Long term (current) use of aspirin; Z79.899 Other long term (current) drug therapy; Z99.81 Dependence on supplemental oxygen
CPT/HCPCS: 36415; 36600; 71045; 71275; 80053; 81001; 82805; 82948; 83605; 83735; 83880; 84145; 84436; 84443; 84481; 84484; 85025; 85610; 85730; 87040; 87070; 87086; 87635; 87804; 87811; 93005; 93306; 94640; 94667; 94668; 94761; 94799; 96365; 96366; 96367; 96368; 96375; 96376; 99285; J2930; Q9967

== ENCOUNTER 2023-07-16 23:19 | Emergency (ER) | payer OTHER, SELFPAY ==
[2023-07-16 23:22] VITALS: BP 124/87; PULSE 95; TEMP 36.6; O2SAT 93; BMI 26.2
--- NOTE | 2023-07-16 23:22 | ECG_ITS ---
The [facility] Test Date: 2023-07-16 Pat Name: JONATAN SPENCER Department: Room: - Gender: Female Non Destructive Testing Supervisor: : 1960 Requested By: [id number] Order Number: [id number] Reading MD: SAMANTHA BASILIO Measurements Intervals [place] Rate: 89 P: 70 AR: 154 QRS: -67 QRSD: 92 T: 78 QT: 360 QTc: 406 Interpretive Statements 1100 Sinus rhythm 2440 Incomplete right bundle branch block 6220 Possible left atrial enlargement 7300 Indeterminate axis 0102 ARTIFACT PRESENT 9130 borderline ECG Compared to ECG 03/18/2023 01:38:48 No significant changes Electronically Signed On 07-17-2023 7:03:54 EDT by SAMANTHA BASILIO
--- NOTE | 2023-07-16 23:30 | CT_ITS ---
The [address] [address] Patient Name: JONATAN SPENCER MRN: [id number] date: 1960 Sex: F Assigned Patient Location: ER Current Patient Location: ER Accession/Order Number: [id number] Exam Date: 07/16/2023 23:45 Report Date: 07/17/2023 00:32 At the request of: LEA SHINE Procedure: CT cervical spine wo con CT CERVICAL SPINE WITHOUT : 07/16/2023 11:45 PM EDT HISTORY: Neck pain. TECHNIQUE: Thin section axial CT images were obtained from the foramen magnum to the T1 vertebral body. This CT exam was performed using one or more of the following dose reduction techniques: Automated exposure control, adjustment of the mA and/or kV according to patient size, or use of iterative reconstruction technique. Thin section coronal and sagittal images were reconstructed from the axial data set. All images were reviewed and interpreted. CONTRAST: None. COMPARISON: None. FINDINGS: There is no fracture or vertebral body height loss. There is no destructive osseous lesion. Straightening of lordosis with otherwise anatomic alignment. There is no spondylolisthesis. Degenerative disc narrowing and endplate spondylosis and disc osteophyte bulging at C3-4, C4-5, C5-6 and C6-7 with mild bilateral uncinate process hypertrophy at these levels contributing to neural foraminal narrowing, mild on the right at C3-4 and C4-5 and moderate on the right at C5-6 and C6-7 mild on the left at these levels. Moderate canal narrowing at C4-5 and C5-6. Osseous mineralization is within normal limits. The paraspinal soft tissues are unremarkable. There is no prevertebral soft tissue swelling. Extensive atherosclerotic calcific plaque in bilateral carotid vessels of the neck mostly bulge and proximal ICA vessels. CT/CT cervical spine wo con IMPRESSION: No fracture or malalignment. Electronically authenticated by: ALIYA LUGO Date: 07/17/2023 00:32
--- NOTE | 2023-07-16 23:30 | CT_ITS ---
The [address] [address] Patient Name: JONATAN SPENCER MRN: [id number] date: 1960 Sex: F Assigned Patient Location: ER Current Patient Location: ER Accession/Order Number: [id number] Exam Date: 07/16/2023 23:45 Report Date: 07/17/2023 00:22 At the request of: LEA SIHNE Procedure: CT head/brain wo con CT OF THE BRAIN WITHOUT CONTRAST: 07/16/2023 11:45 PM EDT HISTORY: TECHNIQUE: Contiguous axially collimated images were obtained through the intracranial compartment, from the vertex through the foramen magnum. Coronal and Sagittal reformatted images were prepared on a separate workstation and reviewed on the PACS for anatomic correlation. No contrast was administered. This CT exam was performed using one or more of the following dose reduction techniques: Automated exposure control, adjustment of the mA and/or kV according to patient size, or use of iterative reconstruction technique. Thin section coronal and sagittal images were reconstructed from the axial data set. All images were reviewed and interpreted. COMPARISON: None. FINDINGS: There is no intracranial hemorrhage or abnormal extra-axial fluid collection. To the extent of evaluated with noncontrast technique, there is no mass lesion appreciated. There is no mass-effect or shift of midline structures. There is global brain volume loss with prominence of the ventricles and CSF spaces. There is no evidence of hydrocephalus. There is no effacement of the basal cisterns. No evidence of acute ischemia. Patchy white matter low attenuation is nonspecific, but likely related to chronic small vessel ischemic change. There is no evidence of a lacunar infarct. The posterior fossa, brain stem, and fourth ventricle are normal. There is no tonsillar ectopy. Acute bilateral nasal bone fractures. No other facial fractures are evident on this study. The calvarium is intact, without destructive lesion or depressed fracture. The mastoid air cells are well-aerated. The paranasal sinuses are normally aerated. Bilateral hearing aid causing artifact. Atherosclerotic calcific plaque in the distal ICA and vertebral artery terminal vessels. CT/CT head/brain wo con IMPRESSION: 1. Changes of chronic small vessel ischemia in the periventricular white matter with secondary bilateral cerebral cortical atrophy. 2. No acute intracranial pathology. 3. Bilateral nasal bone fractures. Correlate with exam. Electronically authenticated by: ALIYA LUGO Date: 07/17/2023 00:22
--- NOTE | 2023-07-16 23:30 | CT_ITS ---
The [address] [address] Patient Name: JONATAN SPENCER MRN: [id number] date: 1960 Sex: F Assigned Patient Location: ER Current Patient Location: ED.MAIN Accession/Order Number: [id number] Exam Date: 07/16/2023 23:45 Report Date: 07/17/2023 00:39 At the request of: LEA SHINE Procedure: CT facial bones wo con EXAM: CT facial bones wo con HISTORY: trauma COMPARISON: CT brain and cervical spine without same date TECHNIQUE: CT facial bone technique. Dose reduction techniques utilized. FINDINGS: Correlating with facial CT same day, there appear to be anterior nasal bone fractures. Age indeterminate. Correlate with exam. No significant depression or displacement. No other facial fractures are definitively seen. Motion artifact limits assessment particularly mandible and temporomandibular joints. Right temporomandibular joint is maintained. Left appears slightly anteriorly subluxed without dislocation. Patient is edentulous throughout the maxilla. Portion of tube remains within the anterior right mandible with extensive periapical lucency. There is a portion of a floating tooth in the posterior right mandible. The paranasal sinuses and mastoid air cells imaged on the study are clear. Orbits and globes are intact. No intracranial or intraorbital pathology. Please see brain CT report dictated separately. CT/CT facial bones wo con IMPRESSION: Age-indeterminate nasal bone fractures. Slight anterior subluxation of the left temporal mandibular joint and left mandibular condyle relative to articular surface. Limited assessment due to motion. There remains high concern for underlying occult mandibular fracture then repeat study without motion needed. Correlate with exam. Electronically authenticated by: ALIYA LUGO Date: 07/17/2023 00:39
--- NOTE | 2023-07-16 23:32 | ED_ITS ---
HPI HPI - Fall General Chief Complaint: Fall Stated Complaint: fall Time Seen by Provider: 07/16/23 23:25 Source: patient Mode of arrival: ambulance History of Present Illness HPI Narrative: patient reportedly fell out of bed. she recalls sliding to the edge of the bed. States she was leaning over the bed and fell face first onto cement floor. Had taken dose of Percocet and ambien before she fell. Squad arrived and administered a dose of Narcan. States since receiving the narcan she feels tingly. She is requesting something to treat the tingling sensation. Denies neck pain and refused to wear C-collar per squad. Denies weakness of her extremities. No complaint of headache. Has a laceration at her nostril. No swelling of her nose recent tail bone fracture. COPD 02 dependent MD complaint: Reports fall Related Data Home Medications ?Medication ?Instructions ?Recorded ?Confirmed aspirin 81 mg tablet,delayed 81 mg PO QDAY 09/24/22 07/17/23 release losartan 100 mg tablet 100 mg PO QDAY 09/24/22 07/17/23 methocarbamol 750 mg tablet 750 mg PO QID 09/24/22 07/17/23 gabapentin 800 mg tablet 800 mg PO QID 03/18/23 07/17/23 (Neurontin) levothyroxine 150 mcg tablet 150 mcg PO DAILY 03/18/23 07/17/23 (Synthroid) oxycodone-acetaminophen 5 mg-325 1 tab PO Q6H PRN pain 03/18/23 07/17/23 mg tablet (Percocet) tiotropium bromide 18 mcg capsule 1 cap inhalation DAILY 03/18/23 07/17/23 with inhalation device (Spiriva with HandiHaler) albuterol sulfate 90 mcg/actuation 2 puff inhalation QID PRN 07/17/23 07/17/23 aerosol inhaler shortness of breath or wheezing benzonatate 200 mg capsule 200 mg PO TID PRN cough 07/17/23 07/17/23 carvedilol 12.5 mg tablet 12.5 mg PO BID 07/17/23 07/17/23 cephalexin 500 mg capsule 500 mg PO QID 07/17/23 07/17/23 codeine 10 mg-guaifenesin 100 mg/5 5 ml PO BID PRN cough 07/17/23 07/17/23 mL oral liquid ferrous sulfate 325 mg (65 mg 325 mg PO QAM 07/17/23 07/17/23 iron) tablet (FeroSul) furosemide 20 mg tablet 20 mg PO DAILY 07/17/23 07/17/23 isosorbide mononitrate 30 mg 30 mg PO DAILY 07/17/23 07/17/23 tablet,extended release 24 hr methylprednisolone 4 mg tablets in 4 mg PO DAILY 07/17/23 07/17/23 a dose pack metoprolol succinate 25 mg 25 mg PO DAILY 07/17/23 07/17/23 tablet,extended release 24 hr nitroglycerin 0.4 mg sublingual 0.4 mg sublingual Q5M PRN chest 07/17/23 07/17/23 tablet pain potassium chloride 20 mEq oral 20 meq PO BID 07/17/23 07/17/23 packet venlafaxine 75 mg capsule,extended 75 mg PO DAILY 07/17/23 07/17/23 release 24 hr zolpidem 10 mg tablet 10 mg PO QPM 07/17/23 07/17/23 Previous Rx's ?Medication ?Instructions ?Recorded liothyronine 5 mcg tablet 10 mcg (2 x 5 mcg) PO ACB #60 tabs 03/20/23 liothyronine 5 mcg tablet (Cytomel) 10 mcg (2 x 5 mcg) PO DAILY #60 03/20/23 tabs Allergies Allergy/AdvReac Type Severity Reaction Status Date / Time codeine AdvReac Intermediate Verified 09/24/22 17:23 ceclor AdvReac Intermediate Uncoded 09/24/22 17:23 Opioid HPI Opioid Management Most Recent Pain and Opioid Data: 2 Last Pain Scale 5 07/17/23 00:25 Last MAR Pain Assessment 07/17/23 00:42 Review of Systems 2 ROS0 Status of ROS 10 or more systems reviewed and unremark able except as noted in history and below [facility] Medical History (Updated 07/17/23 @ 00:59 by Anastacio Huffman MD) Acute exacerbation of chronic obstructive pulmonary disease ?J44.1 - Chronic obstructive pulmonary disease with (acute) exacerbation (ICD-10) Acute and chronic respiratory failure with hypoxia ?J96.21 - Acute and chronic respiratory failure with hypoxia (ICD-10) Acute exacerbation of CHF (congestive heart failure) ?I50.9 - Heart failure, unspecified (ICD-10) Smoker ?F17.200 - Nicotine dependence, unspecified, uncomplicated (ICD-10) Fall ?W19.XXXA - Unspecified fall, initial encounter (ICD-10) Oxygen dependent ?Z99.81 - Dependence on supplemental oxygen (ICD-10) CHF (congestive heart failure) ?I50.9 - Heart failure, unspecified (ICD-10) HTN (hypertension) ?I10 - Essential (primary) hypertension (ICD-10) Heart attack ?I21.9 - Acute myocardial infarction, unspecified (ICD-10) COPD (chronic obstructive pulmonary disease) ?J44.9 - Chronic obstructive pulmonary disease, unspecified (ICD-10) Surgical History (Updated 03/18/23 @ 06:03 by Carly Toth RN) Stented coronary artery ?Z95.5 - Presence of coronary angioplasty implant and graft (ICD-10) Social History Smoking status: Current every day smoker Exam Constitutional Vital Signs, click to edit/add: Last Vital Signs Temp 97.8 F 07/16/23 23:22 Pulse 95 H 07/16/23 23:22 Resp 18 07/16/23 23:22 BP 124/87 07/16/23 23:22 Pulse Ox 93 L 07/16/23 23:22 O2 Del Method Nasal Cannula 07/16/23 23:22 O2 Flow Rate 4 07/16/23 23:22 Common normals: no apparent distress, average body habitus, oriented x3, no limitations, healthy appearing, alert and well nourished [facility] Common normals: normocephalic and head/scalp atraumatic Nose image: 2 1. laceration. edges juxtaposed Eye Common normals: PERRL, EOMs intact bilaterally and conjunctivae normal Neck & C-Spine Common normals: full ROM, supple and no meningeal signs Chest Common normals: inspection of chest normal and palpation of chest normal Respiratory Common normals: normal respiratory effort, no retractions and no use of accessory muscles Cardio Common normals: regular rate, regular rhythm, S1 normal heart sound and S2 normal heart sound GI Common normals: Normal to inspection, nondistended, normoactive bowel sounds present, soft to palpation and non-tender Extremity Common normals: normal to inspection and full ROM Neuro Common normals: oriented x3, CN's II-XII intact bilaterally, moves all extremities, no focal motor deficits, no sensory deficits noted and gait normal Psych Appearance: grossly normal Course Vital Signs Vital signs: Vital Signs Temperature 97.8 F 07/16/23 23:22 Pulse Rate 95 H 07/16/23 23:22 Respiratory Rate 18 07/16/23 23:22 Blood Pressure 124/87 07/16/23 23:22 Pulse Oximetry 93 L 07/16/23 23:22 Oxygen Delivery Method Nasal Cannula 07/16/23 23:22 Oxygen Delivery Flow Rate 4 07/16/23 23:22 Temperature 97.8 F 07/16/23 23:22 Pulse Rate 95 H 07/16/23 23:22 Respiratory Rate 18 07/16/23 23:22 Blood Pressure 124/87 07/16/23 23:22 Pulse Oximetry 93 L 07/16/23 23:22 Oxygen Delivery Method Nasal Cannula 07/16/23 23:22 Oxygen Delivery Flow Rate 4 07/16/23 23:22 MDM - Fall MDM Narrative Medical decision making narrative: patient presents after fall out of bed onto her face. Has a lac of her left nostril that is tender but edges are juxtaposed and I'm Not able to pull apart . CT with findings of nasal bone fractures. Ct brain and C-spine neg. CT with ? findings of mandible due to motion. Patient re examined and no obvious findings related to her mandible or TMJs. Patient informed of nasal bone infection. Will discharge home and have her followup with ENT and her family doctor Lab Data Labs: Lab Results 07/16/23 Range/Units 23:40 WBC 10.7 (4.0-11.0) 10^3/uL RBC 5.17 (4.20-5.40) 10^6/uL Hgb 14.0 (12.0-16.0) g/dL Hct 46.4 (36.0-48.0) % MCV 89.7 (81.0-99.0) fL MCH 27.1 (26.7-34.0) pg MCHC 30.2 (29.9-35.2) g/dL RDW 18.6 H (11.0-15.0) % Plt Count 231 (150-450) 10^3/uL MPV 9.3 L (9.5-13.5) fL Neut % (Auto) 66.2 (43.0-75.0) % Lymph % (Auto) 18.4 L (20.5-60.0) % [place] % (Auto) 7.6 (1.7-12.0) % Eos % (Auto) 6.5 (0.9-7.0) % Baso % (Auto) 1.0 (0.2-2.0) % Neut # (Auto) 7.1 H (1.4-6.5) 10^3/uL Lymph # (Auto) 2.0 (1.2-3.8) 10^3/uL [place] # (Auto) 0.8 (0.3-0.8) 10^3/uL Eos # (Auto) 0.7 (0.0-0.7) 10^3/uL Baso # (Auto) 0.1 (0.0-0.1) 10^3/uL Abs Immat Gran (auto) 0.03 (0.00-0.03) 10^3/uL Imm/Tot Granulo (auto) 0.3 (0.0-0.5) % Sodium 135 L (136-145) mmol/L Potassium 4.1 (3.5-5.1) mmol/L Chloride 102 (98-107) mmol/L Carbon Dioxide 27.0 (21.0-32.0) mmol/L Anion Gap 10.1 BUN 20.0 H (7.0-18.0) mg/dL Creatinine 0.99 (0.55-1.02) mg/dL Est GFR ( Amer) >60 (>=60) Est GFR (Non-Af Amer) 57 L (>=60) BUN/Creatinine Ratio 20.2 Glucose 129 H (74-106) mg/dL Lactate 0.8 (0.4-2.0) mmol/L Calcium 8.5 (8.5-10.1) mg/dL Total Bilirubin 0.3 (0.2-1.0) mg/dL AST 18 (15-37) U/L ALT 13 L (14-59) U/L Alkaline Phosphatase 101 (46-116) U/L Troponin I High Sens 8.8 (4.0-51.3) pg/mL Total Protein 6.3 L (6.4-8.2) g/dL Albumin 3.0 L (3.4-5.0) g/dL Globulin 3.3 g/dL Albumin/Globulin Ratio 0.[address] scan - chest: Radiologist's impression: ITS Impressions Cervical Spine CT 07/16/23 23:30 IMPRESSION: No fracture or malalignment. Electronically authenticated by: ALIYA LUGO Date: 07/17/2023 00:[address] 07/16/23 23:30 IMPRESSION: Age-indeterminate nasal bone fractures. Slight anterior subluxation of the left temporal mandibular joint and left mandibular condyle relative to articular surface. Limited assessment due to motion. There remains high concern for underlying occult mandibular fracture then repeat study without motion needed. Correlate with exam. Electronically authenticated by: ALIYA LUGO Date: 07/17/2023 00:[address] 07/16/23 23:30 IMPRESSION: 1. Changes of chronic small vessel ischemia in the periventricular white matter with secondary bilateral cerebral cortical atrophy. 2. No acute intracranial pathology. 3. Bilateral nasal bone fractures. Correlate with exam. Electronically authenticated by: ALIYA LUGO Date: 07/17/2023 00:22 Discharge Plan Discharge Stand Alone Forms: Portal Instructions Chief Complaint: Fall Clinical Impression: Fracture closed, nasal bone, Closed head injury, Laceration of nose Patient Disposition: Home, Self-Care Mode of Transportation: Private Vehicle Prescriptions / Home Meds: No Action levothyroxine [Synthroid] 150 mcg tablet 150 mcg PO DAILY oxycodone-acetaminophen [Percocet] 5-325 mg tablet 1 tab PO Q6H PRN (Reason: pain) gabapentin [Neurontin] 800 mg tablet 800 mg PO QID tiotropium bromide [Spiriva with HandiHaler] 18 mcg capsule, w/inhalation device 1 cap inhalation DAILY Rx Instructions: puncture 1 cap using device; one dose = 2 inhalations liothyronine 5 mcg Tablet 10 mcg PO ACB Qty: 60 11RF liothyronine [Cytomel] 5 mcg tablet 10 mcg PO DAILY Qty: 60 11RF aspirin 81 mg tablet,delayed release (DR/EC) 81 mg PO QDAY losartan 100 mg tablet 100 mg PO QDAY methocarbamol 750 mg tablet 750 mg PO QID albuterol sulfate 90 mcg/actuation HFA aerosol inhaler 2 puff INHALATION QID PRN (Reason: shortness of breath or wheezing) benzonatate 200 mg capsule 200 mg PO TID PRN (Reason: cough) carvedilol 12.5 mg tablet 12.5 mg PO BID cephalexin 500 mg capsule 500 mg PO QID codeine-guaifenesin 10-100 mg/5 mL liquid 5 ml PO BID PRN (Reason: cough) ferrous sulfate [FeroSul] 325 mg (65 mg iron) tablet 325 mg PO QAM furosemide 20 mg tablet 20 mg PO DAILY isosorbide mononitrate 30 mg tablet extended release 24 hr 30 mg PO DAILY methylprednisolone 4 mg tablets,dose pack 4 mg PO DAILY Patient Comments: dose pack metoprolol succinate 25 mg tablet extended release 24 hr 25 mg PO DAILY nitroglycerin 0.4 mg tablet, sublingual 0.4 mg sublingual Q5M PRN (Reason: chest pain) potassium chloride 20 mEq packet 20 meq PO BID venlafaxine 75 mg capsule,extended release 24hr 75 mg PO DAILY zolpidem 10 mg tablet 10 mg PO QPM Print Language: Greek Instructions: Nasal Fracture (ED), Head Injury (DC), Laceration Without Closure (ED) Additional Instructions: follow up with ENT and your doctor this week for recheck, you will need to call to make appt. Referrals: Coco Sanchez MD [Physician] - 1 week Physician,Non-Staff, [Primary Care Provider] - 1 week Discharge Date/Time: 07/17/23 01:53
[2023-07-16 23:48] LABS: Basophils Absolute Auto 0.1 10^3/uL (0.0-0.1); Eosinophils Absolute Auto 0.7 10^3/uL (0.0-0.7); Eosinophils Percent Auto 6.5 % (0.9-7.0); Hematocrit 46.4 % (36.0-48.0); Immature Granulocytes Abs Auto 0.03 10^3/uL (0.00-0.03); Immature Granulocytes Pct Auto 0.3 % (0.0-0.5); Lymphocytes Percent Auto 18.4 % (20.5-60.0); Mean Corpuscular HGB Conc 30.2 g/dL (29.9-35.2); Mean Corpuscular Hemoglobin 27.1 pg (26.7-34.0); Mean Corpuscular Volume 89.7 fL (81.0-99.0); Mean Platelet Volume 9.3 fL (9.5-13.5); Monocytes Absolute Auto 0.8 10^3/uL (0.3-0.8); Monocytes Percent Auto 7.6 % (1.7-12.0); Neutrophils Absolute Auto 7.1 10^3/uL (1.4-6.5); Neutrophils Percent Auto 66.2 % (43.0-75.0); Platelet Count 231 10^3/uL (150-450); Red Blood Count 5.17 10^6/uL (4.20-5.40); Red Cell Distribution Width 18.6 % (11.0-15.0); White Blood Count 10.7 10^3/uL (4.0-11.0)
[2023-07-17 00:06] LABS: Anion Gap 10.1
[2023-07-17 00:09] LABS: Alanine Aminotransferase 13 U/L (14-59); Albumin Globulin Ratio 0.9; Alkaline Phosphatase 101 U/L (46-116); Aspartate Amino Transferase 18 U/L (15-37); BUN Creatinine Ratio 20.2; Bilirubin Total 0.3 mg/dL (0.2-1.0); Calcium 8.5 mg/dL (8.5-10.1); Chloride 102 mmol/L (98-107); Estimated GFR (African America >60 (>=60); Estimated GFR (Non-African Ame 57 (>=60); Globulin 3.3 g/dL; Glucose 129 mg/dL (74-106); Lactate/Lactic Acid 0.8 mmol/L (0.4-2.0); Potassium 4.1 mmol/L (3.5-5.1); Sodium 135 mmol/L (136-145); Total Protein 6.3 g/dL (6.4-8.2); Troponin I High Sensitivity 8.8 pg/mL (4.0-51.3)
[2023-07-17] MEDS: KETOROLAC TROMETHAMINE 30 MG/ML VIAL IVP (00:42)
== END 2023-07-17 01:53 | disposition home or self-care (01) ==
PROVIDERS: Emergency Provider Internal Medicine
DX: S02.2XXA Fracture of nasal bones, initial encounter for closed fracture (principal); S09.8XXA Other specified injuries of head, initial encounter; S01.21XA Laceration without foreign body of nose, initial encounter; J44.9 Chronic obstructive pulmonary disease, unspecified; I11.0 Hypertensive heart disease with heart failure; I50.9 Heart failure, unspecified; Z99.81 Dependence on supplemental oxygen; Z79.82 Long term (current) use of aspirin; Z79.899 Other long term (current) drug therapy; Z79.890 Hormone replacement therapy; I25.2 Old myocardial infarction; Z95.5 Presence of coronary angioplasty implant and graft; F17.210 Nicotine dependence, cigarettes, uncomplicated
CPT/HCPCS: 36415; 70450; 70486; 72125; 80053; 83605; 84484; 85025; 93005; 96374; 99285

== ENCOUNTER 2024-03-07 13:33 | Emergency (ER) | payer OTHER, SELFPAY ==
[2024-03-07 13:42] VITALS: BP 161/91; PULSE 84; TEMP 36.6; O2SAT 94; BMI 24.6
--- NOTE | 2024-03-07 13:58 | ED.GENADUL1 ---
HPI HPI - General Adult General Chief complaint: Fever Stated complaint: FEVER, EARPAIN, L LOWER LEG SWELLING Time Seen by Provider: 03/07/24 13:52 Source: patient Mode of arrival: Wheelchair History of Present Illness HPI narrative: 63-year-old female presents to the emergency department with numerous complaints. Her most important complaint to her is just redness on her left lower leg and she think she has cellulitis again. She has had it before. No drainage from her leg. She has had previous vascular procedure on that leg. Second her left ear has been hurting. No trauma or drainage or dental issues. Third a month ago she had bleeding ulcers and was seen at another hospital and had endoscopy and procedure to stop the bleeding. Sometimes she will have abdominal pain and does not seem to have any now. She has had no blood in her stool and she is going to see a general surgeon in 2 days in [place] for an abdominal hernia. She does not complain of vomiting. Related Data Home Medications ?Medication ?Instructions ?Recorded ?Confirmed aspirin 81 mg tablet,delayed 81 mg PO QDAY 09/24/22 07/17/23 release losartan 100 mg tablet 100 mg PO QDAY 09/24/22 07/17/23 methocarbamol 750 mg tablet 750 mg PO QID 09/24/22 07/17/23 gabapentin 800 mg tablet 800 mg PO QID 03/18/23 07/17/23 (Neurontin) levothyroxine 150 mcg tablet 150 mcg PO DAILY 03/18/23 07/17/23 (Synthroid) oxycodone-acetaminophen 5 mg-325 1 tab PO Q6H PRN pain 03/18/23 07/17/23 mg tablet (Percocet) tiotropium bromide 18 mcg capsule 1 cap inhalation DAILY 03/18/23 07/17/23 with inhalation device (Spiriva with HandiHaler) albuterol sulfate 90 mcg/actuation 2 puff inhalation QID PRN 07/17/23 07/17/23 aerosol inhaler shortness of breath or wheezing benzonatate 200 mg capsule 200 mg PO TID PRN cough 07/17/23 07/17/23 carvedilol 12.5 mg tablet 12.5 mg PO BID 07/17/23 07/17/23 cephalexin 500 mg capsule 500 mg PO QID 07/17/23 07/17/23 codeine 10 mg-guaifenesin 100 mg/5 5 ml PO BID PRN cough 07/17/23 07/17/23 mL oral liquid ferrous sulfate 325 mg (65 mg 325 mg PO QAM 07/17/23 07/17/23 iron) tablet (FeroSul) furosemide 20 mg tablet 20 mg PO DAILY 07/17/23 07/17/23 isosorbide mononitrate 30 mg 30 mg PO DAILY 07/17/23 07/17/23 tablet,extended release 24 hr methylprednisolone 4 mg tablets in 4 mg PO DAILY 07/17/23 07/17/23 a dose pack metoprolol succinate 25 mg 25 mg PO DAILY 07/17/23 07/17/23 tablet,extended release 24 hr nitroglycerin 0.4 mg sublingual 0.4 mg sublingual Q5M PRN chest 07/17/23 07/17/23 tablet pain potassium chloride 20 mEq oral 20 meq PO BID 07/17/23 07/17/23 packet venlafaxine 75 mg capsule,extended 75 mg PO DAILY 07/17/23 07/17/23 release 24 hr zolpidem 10 mg tablet 10 mg PO QPM 07/17/23 07/17/23 Previous Rx's ?Medication ?Instructions ?Recorded liothyronine 5 mcg tablet 10 mcg (2 x 5 mcg) PO ACB #60 tabs 03/20/23 liothyronine 5 mcg tablet (Cytomel) 10 mcg (2 x 5 mcg) PO DAILY #60 03/20/23 tabs amoxicillin 875 mg-potassium 1 tab PO BID #14 tabs 03/07/24 clavulanate 125 mg tablet Allergies Allergy/AdvReac Type Severity Reaction Status Date / Time codeine AdvReac Intermediate Verified 09/24/22 17:23 ceclor AdvReac Intermediate Uncoded 09/24/22 17:23 Opioid HPI Opioid Management Most Recent Opioid Data: Last Pain Scale 5 07/17/23 00:25 07/17/23 Review of Systems ROS Narrative A ten point review of systems is negative except as noted above. [facility] Medical History (Updated 03/07/24 @ 15:11 by Gareth Ventura MD) Acute exacerbation of chronic obstructive pulmonary disease ?J44.1 - Chronic obstructive pulmonary disease with (acute) exacerbation (ICD-10) Acute and chronic respiratory failure with hypoxia ?J96.21 - Acute and chronic respiratory failure with hypoxia (ICD-10) Acute exacerbation of CHF (congestive heart failure) ?I50.9 - Heart failure, unspecified (ICD-10) Smoker ?F17.200 - Nicotine dependence, unspecified, uncomplicated (ICD-10) Fall ?W19.XXXA - Unspecified fall, initial encounter (ICD-10) Oxygen dependent ?Z99.81 - Dependence on supplemental oxygen (ICD-10) CHF (congestive heart failure) ?I50.9 - Heart failure, unspecified (ICD-10) HTN (hypertension) ?I10 - Essential (primary) hypertension (ICD-10) Heart attack ?I21.9 - Acute myocardial infarction, unspecified (ICD-10) COPD (chronic obstructive pulmonary disease) ?J44.9 - Chronic obstructive pulmonary disease, unspecified (ICD-10) Surgical History (Updated 03/18/23 @ 06:03 by Carly Toth RN) Stented coronary artery ?Z95.5 - Presence of coronary angioplasty implant and graft (ICD-10) Social History Smoking status: Current every day smoker Little interest or pleasure in doing things: not at all Feeling down, depressed, or hopeless: not at all Exam Narrative Exam Narrative: Nurses note and vital signs reviewed and patient is not hypoxic. General: The patient appears well and in no apparent distress. Patient is resting comfortably on cart. Skin: Warm, dry, no pallor noted. There is erythema on her left lower leg and several areas. There is no open area or drainage or abscess. No lymphangitis. It is warm to touch. There is no erythema in the calf area nor any tenderness there either Head: Normocephalic, atraumatic Eye: Normal conjunctiva, no drainage Ears, Nose, Mouth, and Throat: oral mucosa is moist. Nares patent. The left TM and left external canal is normal in appearance. No foreign body or drainage or erythema. Cardiovascular: Regular Rate and Rhythm Respiratory: Patient is in no distress, no accessory muscle use, lungs are clear to auscultation, no wheezing, rales or rhonchi Back: non-tender GI: Soft and nontender nondistended. Left-sided abdominal wall hernia present, easily reducible Musculoskeletal: The patient has no evidence of calf tenderness, no pitting edema, symmetrical pulses noted bilaterally Neurological: Awake and alert Psychiatric: Cooperative Constitutional Vital Signs, click to edit/add: Last Vital Signs Temp 98 F 03/07/24 13:42 Pulse 84 03/07/24 13:42 Resp 20 03/07/24 13:42 BP 161/91 H 03/07/24 13:42 Pulse Ox 94 L 03/07/24 13:42 O2 Del Method Room Air 03/07/24 13:42 Course Vital Signs Vital signs: Vital Signs Temperature 98 F 03/07/24 13:42 Pulse Rate 84 03/07/24 13:42 Respiratory Rate 20 03/07/24 13:42 Blood Pressure 161/91 H 03/07/24 13:42 Pulse Oximetry 94 L 03/07/24 13:42 Oxygen Delivery Method Room Air 03/07/24 13:42 Temperature 98 F 03/07/24 13:42 Pulse Rate 84 03/07/24 13:42 Respiratory Rate 20 03/07/24 13:42 Blood Pressure 161/91 H 03/07/24 13:42 Pulse Oximetry 94 L 03/07/24 13:42 Oxygen Delivery Method Room Air 03/07/24 13:42 Medical Decision Making MDM Narrative Medical decision making narrative: Blood work is normal including WBC and hemoglobin. She does not have an ear infection. She was prescribed Augmentin for cellulitis on her leg. Treatment diagnosis and follow-up were discussed with the patient. She does not require admission to the hospital at this point. I have no clinical suspicion of DVT. Differential Diagnosis Differential Diagnosis: Cellulitis, otitis media, otitis externa Lab Data Lab results reviewed: Yes I reviewed the patient's lab results Labs: Lab Results 03/07/24 Range/Units 14:14 WBC 8.4 (4.0-11.0) 10^3/uL RBC 4.24 (4.20-5.40) 10^6/uL Hgb 12.6 (12.0-16.0) g/dL Hct 38.9 (36.0-48.0) % MCV 91.7 (81.0-99.0) fL MCH 29.7 (26.7-34.0) pg MCHC 32.4 (29.9-35.2) g/dL RDW 15.8 H (11.0-15.0) % Plt Count 244 (150-450) 10^3/uL MPV 8.9 L (9.5-13.5) fL Neut % (Auto) 77.8 H (43.0-75.0) % Lymph % (Auto) 13.5 L (20.5-60.0) % [place] % (Auto) 6.1 (1.7-12.0) % Eos % (Auto) 1.6 (0.9-7.0) % Baso % (Auto) 0.8 (0.2-2.0) % Neut # (Auto) 6.5 (1.4-6.5) 10^3/uL Lymph # (Auto) 1.1 L (1.2-3.8) 10^3/uL [place] # (Auto) 0.5 (0.3-0.8) 10^3/uL Eos # (Auto) 0.1 (0.0-0.7) 10^3/uL Baso # (Auto) 0.1 (0.0-0.1) 10^3/uL Abs Immat Gran (auto) 0.02 (0.00-0.03) 10^3/uL Imm/Tot Granulo (auto) 0.2 (0.0-0.5) % Sodium 137 (136-145) mmol/L Potassium 4.0 (3.5-5.1) mmol/L Chloride 102 (98-107) mmol/L Carbon Dioxide 26.1 (21.0-32.0) mmol/L Anion Gap 12.9 BUN 18.0 (7.0-18.0) mg/dL Creatinine 0.96 (0.55-1.02) mg/dL Est GFR ( Amer) >60 (>=60 mL/min/1.73m^2) Est GFR (Non-Af Amer) 59 L (>=60 mL/min/1.73m^2) BUN/Creatinine Ratio 18.8 Glucose 131 H (74-106) mg/dL Calcium 8.8 (8.5-10.1) mg/dL Discharge Plan Discharge Chief Complaint: Fever Clinical Impression: Cellulitis of left leg Patient Disposition: Home, Self-Care Time of Disposition Decision: 15:11 Condition: Good Mode of Transportation: Private Vehicle Prescriptions / Home Meds: New amoxicillin-pot clavulanate 875-125 mg tablet 1 tab PO BID Qty: 14 0RF No Action levothyroxine [Synthroid] 150 mcg tablet 150 mcg PO DAILY oxycodone-acetaminophen [Percocet] 5-325 mg tablet 1 tab PO Q6H PRN (Reason: pain) gabapentin [Neurontin] 800 mg tablet 800 mg PO QID tiotropium bromide [Spiriva with HandiHaler] 18 mcg capsule, w/inhalation device 1 cap inhalation DAILY Rx Instructions: puncture 1 cap using device; one dose = 2 inhalations liothyronine 5 mcg Tablet 10 mcg PO ACB Qty: 60 11RF liothyronine [Cytomel] 5 mcg tablet 10 mcg PO DAILY Qty: 60 11RF aspirin 81 mg tablet,delayed release (DR/EC) 81 mg PO QDAY losartan 100 mg tablet 100 mg PO QDAY methocarbamol 750 mg tablet 750 mg PO QID albuterol sulfate 90 mcg/actuation HFA aerosol inhaler 2 puff INHALATION QID PRN (Reason: shortness of breath or wheezing) benzonatate 200 mg capsule 200 mg PO TID PRN (Reason: cough) carvedilol 12.5 mg tablet 12.5 mg PO BID cephalexin 500 mg capsule 500 mg PO QID codeine-guaifenesin 10-100 mg/5 mL liquid 5 ml PO BID PRN (Reason: cough) ferrous sulfate [FeroSul] 325 mg (65 mg iron) tablet 325 mg PO QAM furosemide 20 mg tablet 20 mg PO DAILY isosorbide mononitrate 30 mg tablet extended release 24 hr 30 mg PO DAILY methylprednisolone 4 mg tablets,dose pack 4 mg PO DAILY Patient Comments: dose pack metoprolol succinate 25 mg tablet extended release 24 hr 25 mg PO DAILY nitroglycerin 0.4 mg tablet, sublingual 0.4 mg sublingual Q5M PRN (Reason: chest pain) potassium chloride 20 mEq packet 20 meq PO BID venlafaxine 75 mg capsule,extended release 24hr 75 mg PO DAILY zolpidem 10 mg tablet 10 mg PO QPM Print Language: Turkmen Instructions: Cellulitis (ED) Referrals: Physician,Non-Staff, MD [Primary Care Provider] - 1 week
[2024-03-07 14:27] LABS: Basophils Absolute Auto 0.1 10^3/uL (0.0-0.1); Basophils Percent Auto 0.8 % (0.2-2.0); Eosinophils Absolute Auto 0.1 10^3/uL (0.0-0.7); Eosinophils Percent Auto 1.6 % (0.9-7.0); Hematocrit 38.9 % (36.0-48.0); Hemoglobin 12.6 g/dL (12.0-16.0); Immature Granulocytes Abs Auto 0.02 10^3/uL (0.00-0.03); Immature Granulocytes Pct Auto 0.2 % (0.0-0.5); Lymphocytes Absolute Auto 1.1 10^3/uL (1.2-3.8); Lymphocytes Percent Auto 13.5 % (20.5-60.0); Mean Corpuscular HGB Conc 32.4 g/dL (29.9-35.2); Mean Corpuscular Hemoglobin 29.7 pg (26.7-34.0); Mean Corpuscular Volume 91.7 fL (81.0-99.0); Mean Platelet Volume 8.9 fL (9.5-13.5); Monocytes Absolute Auto 0.5 10^3/uL (0.3-0.8); Monocytes Percent Auto 6.1 % (1.7-12.0); Neutrophils Absolute Auto 6.5 10^3/uL (1.4-6.5); Neutrophils Percent Auto 77.8 % (43.0-75.0); Platelet Count 244 10^3/uL (150-450); Red Blood Count 4.24 10^6/uL (4.20-5.40); Red Cell Distribution Width 15.8 % (11.0-15.0); White Blood Count 8.4 10^3/uL (4.0-11.0)
[2024-03-07 14:36] LABS: Anion Gap 12.9; BUN Creatinine Ratio 18.8; Calcium 8.8 mg/dL (8.5-10.1); Carbon Dioxide 26.1 mmol/L (21.0-32.0); Chloride 102 mmol/L (98-107); Estimated GFR (African America >60 (>=60 mL/min/1.73m^2); Estimated GFR (Non-African Ame 59 (>=60 mL/min/1.73m^2); Glucose 131 mg/dL (74-106); Sodium 137 mmol/L (136-145)
== END 2024-03-07 15:30 | disposition home or self-care (01) ==
PROVIDERS: Emergency Provider Emergency Medicine
DX: L03.116 Cellulitis of left lower limb (principal); F17.200 Nicotine dependence, unspecified, uncomplicated
CPT/HCPCS: 36415; 80048; 85025; 99283

== ENCOUNTER 2025-02-15 15:03 | Emergency (ER) | payer MEDICAID, SELFPAY ==
[2025-02-15 14:26] VITALS: BP 150/82; PULSE 102; O2SAT 98; BMI 22.7
--- NOTE | 2025-02-15 14:38 | CT_ITS ---
The [address] [address] Patient Name: JONATAN SPENCER MRN: [id number] date: 1960 Sex: F Assigned Patient Location: ED.MAIN Current Patient Location: ED.MAIN Accession/Order Number: [id number] Exam Date: 02/15/2025 14:45 Report Date: 02/15/2025 16:29 At the request of: ENEIDA PONCE MD Procedure: CT lumbar spine wo con CT lumbar spine without contrast TECHNIQUE: The CT exam was performed using one or more the following dose reduction techniques: Automated exposure control, adjustment of the MA and/or Kv according to patient size, or use of the iterative reconstruction technique. COMPARISON: 08/25/2021 HISTORY: Right hip pain. Popping sensation in back. There is redemonstration of the prior acute distracted fracture of the L2 vertebral body which extends into the left pedicle. Acute right L2 pedicle fracture present. L2-3 anterolisthesis is mild with mild progression. There is progressive L1-2 spondylosis with developing retrolisthesis up to 7 mm. The right L2 pedicle fracture stable alignment. The L1 nondisplaced bilateral pedicle fractures redemonstrated. Callus formation surrounds the L2 left pedicle and body fracture. Extending into the central canal. Mild stenosis. Extensive L4-5 and L5-S1 spondylosis. Extensive T11-12 and T12-L1 spondylosis. Multilevel facet degeneration. Atherosclerosis. CT/CT lumbar spine wo con IMPRESSION: Healing of prior acute fracture of the L2 at the body and the left pedicle. Interval development of 7 mm retrolisthesis at the L1-2 level. Developing L1-2 spondylosis. Redemonstration of similar L2 right and L1 bilateral pedicle fractures. Similar extensive multilevel degeneration. No new fractures present. Impression dictated by: Americo De La Cruz M.D. 02/15/2025 4:29 PM Dictation Location: [facility] Electronically authenticated by: [id number] Y Date: 02/15/2025 16:29
[2025-02-15] MEDS: KETOROLAC TROMETHAMINE 30 MG/ML VIAL IM (14:46)
--- NOTE | 2025-02-15 14:55 | ED.LOWEXI1 ---
HPI HPI - Extremity Injury (Lower) General Chief Complaint: Extremity Injury, Lower Stated Complaint: R HIP PAIN Time Seen by Provider: 02/15/25 16:01 Source: patient Mode of arrival: ambulance Limitations: no limitations History of Present Illness HPI Narrative: The patient is a 64-year-old female presenting to us from home by the EMS after she apparently rolled on the bed and started having right hip pain and back pain. The patient denies any nausea vomiting or any other concerns she denies any fall or trauma The patient mentioned that she lives with her son and usually use a walker to walk around Related Data Home Medications ?Medication ?Instructions ?Recorded ?Confirmed aspirin 81 mg tablet,delayed 81 mg PO QDAY 09/24/22 07/17/23 release losartan 100 mg tablet 100 mg PO QDAY 09/24/22 07/17/23 methocarbamol 750 mg tablet 750 mg PO QID 09/24/22 07/17/23 gabapentin 800 mg tablet 800 mg PO QID 03/18/23 07/17/23 (Neurontin) levothyroxine 150 mcg tablet 150 mcg PO DAILY 03/18/23 07/17/23 (Synthroid) oxycodone-acetaminophen 5 mg-325 1 tab PO Q6H PRN pain 03/18/23 07/17/23 mg tablet (Percocet) tiotropium bromide 18 mcg capsule 1 cap inhalation DAILY 03/18/23 07/17/23 with inhalation device (Spiriva with HandiHaler) albuterol sulfate 90 mcg/actuation 2 puff inhalation QID PRN 07/17/23 07/17/23 aerosol inhaler shortness of breath or wheezing benzonatate 200 mg capsule 200 mg PO TID PRN cough 07/17/23 07/17/23 carvedilol 12.5 mg tablet 12.5 mg PO BID 07/17/23 07/17/23 cephalexin 500 mg capsule 500 mg PO QID 07/17/23 07/17/23 codeine 10 mg-guaifenesin 100 mg/5 5 ml PO BID PRN cough 07/17/23 07/17/23 mL oral liquid ferrous sulfate 325 mg (65 mg 325 mg PO QAM 07/17/23 07/17/23 iron) tablet (FeroSul) furosemide 20 mg tablet 20 mg PO DAILY 07/17/23 07/17/23 isosorbide mononitrate 30 mg 30 mg PO DAILY 07/17/23 07/17/23 tablet,extended release 24 hr methylprednisolone 4 mg tablets in 4 mg PO DAILY 07/17/23 07/17/23 a dose pack metoprolol succinate 25 mg 25 mg PO DAILY 07/17/23 07/17/23 tablet,extended release 24 hr nitroglycerin 0.4 mg sublingual 0.4 mg sublingual Q5M PRN chest 07/17/23 07/17/23 tablet pain potassium chloride 20 mEq oral 20 meq PO BID 07/17/23 07/17/23 packet venlafaxine 75 mg capsule,extended 75 mg PO DAILY 07/17/23 07/17/23 release 24 hr zolpidem 10 mg tablet 10 mg PO QPM 07/17/23 07/17/23 Previous Rx's ?Medication ?Instructions ?Recorded liothyronine 5 mcg tablet 10 mcg (2 x 5 mcg) PO ACB #60 tabs 03/20/23 liothyronine 5 mcg tablet (Cytomel) 10 mcg (2 x 5 mcg) PO DAILY #60 03/20/23 tabs amoxicillin 875 mg-potassium 1 tab PO BID #14 tabs 03/07/24 clavulanate 125 mg tablet meloxicam 7.5 mg tablet 7.5 mg PO DAILY PRN pain #20 tabs 02/15/25 Allergies Allergy/AdvReac Type Severity Reaction Status Date / Time codeine AdvReac Intermediate Verified 09/24/22 17:23 ceclor AdvReac Intermediate Uncoded 09/24/22 17:23 Opioid HPI Opioid Management Most Recent Pain and Opioid Data: Last Pain Scale 10 Today, 14:46 Last MAR Pain Assessment Today, 14:46 Review of Systems ROS Status of ROS 10 or more systems reviewed and unremarkable except as noted in history and below [facility] Medical History (Updated 02/15/25 @ 17:36 by Carole Chavez MD) Acute exacerbation of chronic obstructive pulmonary disease ?J44.1 - Chronic obstructive pulmonary disease with (acute) exacerbation (ICD-10) Acute and chronic respiratory failure with hypoxia ?J96.21 - Acute and chronic respiratory failure with hypoxia (ICD-10) Acute exacerbation of CHF (congestive heart failure) ?I50.9 - Heart failure, unspecified (ICD-10) Smoker ?F17.200 - Nicotine dependence, unspecified, uncomplicated (ICD-10) Fall ?W19.XXXA - Unspecified fall, initial encounter (ICD-10) Oxygen dependent ?Z99.81 - Dependence on supplemental oxygen (ICD-10) CHF (congestive heart failure) ?I50.9 - Heart failure, unspecified (ICD-10) HTN (hypertension) ?I10 - Essential (primary) hypertension (ICD-10) Heart attack ?I21.9 - Acute myocardial infarction, unspecified (ICD-10) COPD (chronic obstructive pulmonary disease) ?J44.9 - Chronic obstructive pulmonary disease, unspecified (ICD-10) Surgical History (Updated 03/18/23 @ 06:03 by Carly Toth RN) Stented coronary artery ?Z95.5 - Presence of coronary angioplasty implant and graft (ICD-10) Social History Smoking status: Current every day smoker Little interest or pleasure in doing things: not at all Feeling down, depressed, or hopeless: not at all Exam Narrative Exam Narrative: Nurses notes and vital signs reviewed and patient is not hypoxic. General: Well-appearing and in no apparent distress. Skin: Dry skin with multiple ulcers in the lower extremities mostly in the atrial aspect. All are healing well and scarring No signs of infection in the lower extremity No rash. Head: Normocephalic, atraumatic. Neck: Supple, non-tender. Eye: Pupils are equal, round and EOMI. No scleral icterus. Ears, Nose, Mouth, and Throat: TM are clear, no nasal mucosal hypertrophy. Oral mucosa is moist, no posterior oropharynx erythema, uvula is mid-line Cardiovascular: Regular Rate and Rhythm without murmur, gallop or rub. Respiratory: No distress noted and no use of accessory muscles of the patient in 2 L nasal cannula Chest Wall: no tenderness Back:no CVA tenderness Musculoskeletal: normal ROM, no calf or popliteal tenderness, mild swelling in the right ankle and the patient have no limitation movement of the right hip GI: Abdomen is soft, non-distended. Normal bowel sounds. No masses appreciated. No tenderness to palpation. No rebound, guarding, or rigidity noted. Neurological: A&O x4. No cranial nerve dysfunction observed. Constitutional Vital Signs, click to edit/add: Last Vital Signs Pulse 102 H 02/15/25 14:26 Resp 20 02/15/25 14:26 BP 150/82 H 02/15/25 14:26 Pulse Ox 98 02/15/25 14:26 O2 Del Method Nasal Cannula 02/15/25 14:26 O2 Flow Rate 2 02/15/25 14:26 Course Vital Signs Vital signs: Vital Signs Pulse Rate 102 H 02/15/25 14:26 Respiratory Rate 20 02/15/25 14:26 Blood Pressure 150/82 H 02/15/25 14:26 Pulse Oximetry 98 02/15/25 14:26 Oxygen Delivery Method Nasal Cannula 02/15/25 14:26 Oxygen Delivery Flow Rate 2 02/15/25 14:26 Pulse Rate 102 H 02/15/25 14:26 Respiratory Rate 20 02/15/25 14:26 Blood Pressure 150/82 H 02/15/25 14:26 Pulse Oximetry 98 02/15/25 14:26 Oxygen Delivery Method Nasal Cannula 02/15/25 14:26 Oxygen Delivery Flow Rate 2 02/15/25 14:26 MDM - Extremity Injury (Lower) MDM Narrative Medical decision making narrative: Patient uses 2 L nasal cannula at the baseline she is presenting to us with hip pain that started after she rolled in the bed. The patient denies any fall or trauma CAT scan of the lumbar spine showed no acute pathology at the patient have old fractures that are healing X-ray of the right hip shows no acute pathology although the patient have degenerative changes of the right hip The patient initially I did speak with her son and apparently he take care of her The patient denies need for any help at home she is requesting to go back home although I did offer her to be admitted after a noted that she had multiple pulse in the lower extremity and she did not want to be evaluated regarding her ambulation with a walker in the ER she said that she is sure that she can ambulate and she does not want to try that here Patient son came and took her after she was provided with Mobic for pain as prescription as outpatient The patient to follow-up with the primary care within 2 to 3 days and to come back to the ER in case of any worsening of the current symptoms or any new symptoms or concerns Discharge Plan Discharge Chief Complaint: Extremity Injury, Lower Clinical Impression: Chronic hip pain, Back pain Patient Disposition: Home, Self-Care Time of Disposition Decision: 17:36 Condition: Good Prescriptions / Home Meds: New meloxicam 7.5 mg tablet 7.5 mg PO DAILY PRN (Reason: pain) Qty: 20 0RF No Action levothyroxine [Synthroid] 150 mcg tablet 150 mcg PO DAILY oxycodone-acetaminophen [Percocet] 5-325 mg tablet 1 tab PO Q6H PRN (Reason: pain) gabapentin [Neurontin] 800 mg tablet 800 mg PO QID tiotropium bromide [Spiriva with HandiHaler] 18 mcg capsule, w/inhalation device 1 cap inhalation DAILY Rx Instructions: puncture 1 cap using device; one dose = 2 inhalations liothyronine 5 mcg Tablet 10 mcg PO ACB Qty: 60 11RF liothyronine [Cytomel] 5 mcg tablet 10 mcg PO DAILY Qty: 60 11RF aspirin 81 mg tablet,delayed release (DR/EC) 81 mg PO QDAY losartan 100 mg tablet 100 mg PO QDAY methocarbamol 750 mg tablet 750 mg PO QID albuterol sulfate 90 mcg/actuation HFA aerosol inhaler 2 puff INHALATION QID PRN (Reason: shortness of breath or wheezing) benzonatate 200 mg capsule 200 mg PO TID PRN (Reason: cough) carvedilol 12.5 mg tablet 12.5 mg PO BID cephalexin 500 mg capsule 500 mg PO QID codeine-guaifenesin 10-100 mg/5 mL liquid 5 ml PO BID PRN (Reason: cough) ferrous sulfate [FeroSul] 325 mg (65 mg iron) tablet 325 mg PO QAM furosemide 20 mg tablet 20 mg PO DAILY isosorbide mononitrate 30 mg tablet extended release 24 hr 30 mg PO DAILY methylprednisolone 4 mg tablets,dose pack 4 mg PO DAILY Patient Comments: dose pack metoprolol succinate 25 mg tablet extended release 24 hr 25 mg PO DAILY nitroglycerin 0.4 mg tablet, sublingual 0.4 mg sublingual Q5M PRN (Reason: chest pain) potassium chloride 20 mEq packet 20 meq PO BID venlafaxine 75 mg capsule,extended release 24hr 75 mg PO DAILY zolpidem 10 mg tablet 10 mg PO QPM amoxicillin-pot clavulanate 875-125 mg tablet 1 tab PO BID Qty: 14 0RF Print Language: Lao Instructions: Back Pain (ED), Hip Pain (ED) Referrals: Physician,Non-Staff, MD [Primary Care Provider] - 1 week
--- OUTSIDE RECORDS SUMMARY | 2025-02-15 15:24 | XMS_ITS | CCD ---
Author Organization [facility] Care Team Providers Care Tin Pourer Name Role Phone Zach Grimaldo Unavailable Unavailable Roberto Carlos, Luke Unavailable Unavailable Roberto Carlos, Luke Unavailable Unavailable Angelita, Vahid Unavailable Unavailable Angelita, Vahid Unavailable Unavailable Angelita, Vahid Unavailable Unavailable Angelita, Vahid Unavailable Unavailable Angelita, Vahid Unavailable Unavailable Angelita, Vahid Unavailable Unavailable Angelita, Vahid Unavailable Unavailable Angelita, Vahid Unavailable Unavailable Ender Amin Unavailable [phone] Natalia Amin Primary Care Physician Angelita, Vahid Unavailable Unavailable Angelita, Vahid Primary Care Provider Angelita, Vahid M Primary Care Provider [phone] DEION FRITZ Attending Unavailable Angelita, Vahid M Primary Care Provider Angelita, Vahid Primary Care Provider Angelita [employer] - TR[employer] ADMINISTRATOR, Vahid M Primary Care Provider Unavailable Primary Care Provider Unavailabl e Angelita [employer]PECT[employer] - TRUST ADMINISTRATOR, Vahid M Primary Care Provider Angelita TRUST ADMINISTRATOR, Vahid Unavailable Osmar Rodriguez MD Primary Care Provider [phone] Angelita TRUST ADMINISTRATOR, Vahid Primary Care Provider [phone] Angelita [employer] - TRUST ADMINISTRATOR, Vahid M Primary Care Provider Angelita TRUST ADMINISTRATOR, Vahid Primary Care Provider DR ERMA GUERRERO Primary Care Unavailable AILYN, DR GORDO Saeed Admitting Unavailable AILYN, DR GORDO Saeed Consulting Unavailable DR GORDO ROBERTSON Attending Unavailable WILY FAJARDO Consulting Unavailable NIA GALLEGOS Consulting Unavailable TAWANNA VICENTE Consulting Unavailable Eber Mcnair Consulting Unavailable Osmar Rodriguez MD Primary Care Provider Angelita [facility], Vahid Primary Care Provider [phone] ANGELITA, VAHID Primary Care Unavailable ANGELITA, VAHID Referring Unavailable CORRINE CHERY Attending Unavailable ANGELITA, VAHID Primary Care Unavailable JENNIFER, OSMAR Referring Unavailable ALETHA VERDE Attending Unavailable PEDRITO PICKETT Y Admitting Unavailable PICKETT PEDRITO Y Attending Unavailable ANGELITA, VAHID Primary Care Unavailable ANGELITA, VAHID Primary Care Unavailable ANGELITA, VAHID Primary Care Unavailable SELF, SELF Referring Unavailable CORRINE HCERY Attending Unavailable Osmar Rodriguez MD Primary Care Provider Osmar Rodriguez MD Primary Care Provider BRIANAMatilde MARIEE Admitting Unavailable JOI JACOBSEN Referring Unavailable [facility] Primary Care Unavailable WINDY KUMARI Consulting Unavail able ABRAHAM BELTRAN Attending Unavailable DO Carlo Grimaldo Emergency Provider NON STAFF Primary Care Provider UnavailMD Nabila Cristobal Admit Provider MD Nabila Rao Attending Provider Asia Guzman Consulting Unavailable Nabila Rao Admitting Unavailable Luis Fernando Strauss Attending Unavailab le NON STAFF Primary Care Unavailable Americo Gomez Consulting Unavailable Michelle Joyce Consulting Unavailable Bjorn Ramsey Consulting Unavailable Artur Guo Consulting UnavailMD Luis Fernando Nolasco Attending Provider CASANDRA Guzman Other Provider Unavailable MD Americo Gomez Other Provider [phone] MARION Joyce Other Provider [phone] MD Bjorn Ramsey Other Provider MD Artur Guo Other Provider Osmar Rodriguez MD Primary Care Provider [phone] GERBER BASHIR Attending Unavailable IACOB, OSMAR Primary Care Unavailable IACOB, OSMAR Primary Care Unavailable NELL HORTON Referring Unavailable IACOB, OSMAR Primary Care Unavailable IACOB, OSMAR Attending Unavailable IACOB, OSMAR Referring Unavailable IACOB, OSMAR Primary Care Unavailable QUIRINO NEWMAN Consulting Unavailable IACOB, OSMAR Attending Unavailable IACOB, OSMAR Admitting Unavailable IACOB, OSMAR Primary Care Unavailable QUIRINO NEWMAN Consulting Unavailable IACOB, OSMAR Attending Unavailable IACOB, OSMAR Admitting Unavailable GORDO COLMENARES Consulting Unavailable IACOB, OSMAR Attending Unavailable IACOB, OSMAR Admitting Unavailable IACOB, OSMAR Primary Care Unavailable IACOB, OSMAR Primary Care Unavailable Iacob Osmar MARTINEZ Primary Care Provider IACOB, OSMAR Primary Care Unavailable IACOB, OSMAR Primary Care Unavailable DIONICIO BURGESS Attending Unavailable IACOB, OSMAR Primary Care Unavailable GUME ALDRICH Attending Unavailable IACOB, OSMAR Primary Care Unavailable LUIS MANUEL ROBISON Attending Unavailable IACOB, OSMAR Primary Care Unavailable ALIYAH MOSLEY NIMIT Admitting Unavailable MOSLEY, ALIYAH NIMIT Attending Unavailable ONLY), IP WOUND CARE SERVICES (INPATIENT Consult ing Unavailable IACOB, OSMAR Primary Care Unavailable APOLINAR HUMPHREY Attending Unavailable IACOB, OSMAR Referring Unavailable IACOB, OSMAR Primary Care Unavailable IACOB, OSMAR Primary Care Unavailable JAYDA KUNZ T Admitting Unavailable KATT HODGE Consulting Unavailable EUNICE, MUHAMID M Attending Unavailable ONLY), IP WOUND CARE SERVICES (INPATIENT Consult ing Unavailable NIA CORONEL Consulting Unavailable SARAHI SARAVIA Consulting Unavailable IACOB, OSMAR Primary Care Unavailable EUNICE, MUHAMID M Admitting Unavailable KAMKATT MAIN A Consulting Unavailable DANA LUND Attending Unavailable ONLY), IP WOUND CARE SERVICES (INPATIENT Consult ing Unavailable IACOB, OSMAR Primary Care Unavailable EUNICE, MUHAMID M Admitting Unavailable EUNICE, MUHAMID M Attending Unavailable IACOB, OSMAR Primary Care Unavailable Iacob Osmar MARTINEZ Primary Care Provider IACOB, OSMAR Primary Care Unavailable ULISES VOGEL Attending Unavailable MARIELENA FRANKLIN Consulting Unavailable REBECA JOHNSON Admitting Unavailable LUIS MANUEL ROBISON Referring Unavailable IACOB, OSMAR Primary Care Unavailable IACOB, OSMAR Referring Unavailable IACOB, OSMAR Primary Care Unavailable IACOB, OSMAR Referring Unavailable IACOB, OSMAR Primary Care Unavailable IACOB, OSMAR Referring Unavailable IACOB, OSMAR Primary Care Unavailable IACOB, OSMAR Referring Unavailable IACOB, OSMAR Primary Care Unavailable Allergies Allergy ClassificationReported Allergen(s)Allergy TypeDate of OnsetReaction(s) Facility (20 sources)azithromycin; 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: [azithromycin]Drug Cyhkqph89-22-2463 [facility] Repository (20 sources)cefaclor; 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: [cefaclor]Drug Gskezei15-39-5204[facility]xxvwzghxOhio[facility] (20 sources)codeine; 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: [Codeine]Drug Ejmxwch39-67-9439Voxfq (See Comments), [facility] ([facility]cyclobenzaprine; 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: [cyclobenzaprine]Drug Allergy 73[facility] ([facility] sources)simvastatin; 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: [simvastatin]Drug Unxpyda45-63-7235 [facility] Repository (20 sources)-No Environmental Allergies; 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: [-No Environmental Allergies]Allergy to substance (disorder)[facility] (13 sources)-No Known Food AllergiesAllergy to substance (disorder)[facility] (20 sources)Other; 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: [Other]Allergy to substance (disorder)Lexiscan [facility] (20 sources)Metals; 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: [Metals]Allergy to substance (disorder)Nickel [facility] comment on above:04/14/2015 - ar (20 sources)tiZANidine; 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: [tizanidine][facility]rug [facility]Le[facility] (20 sources)Azithromycin; 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: [azithromycin]Drug Ovkotyi01-67-3431 [facility] (20 sources)Cefaclor; 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: [cefaclor]Drug Qqhztia12-18-6051Mqsrj, Other (See Comments)[facility] (4 sources)cyclobenzaprine; 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: [cyclobenzaprine]Drug Allergylegs [facility] (20 sources)Simvastatin; 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: [simvastatin]Drug Nnunkoe09-78-4716 Itching, Other (See Comments)[facility] (4 sources)tiZANidine; 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: [tizanidine]Drug AllergyLegs [facility] (20 sources)Seasonal allergy; 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: [Seasonal allergies]Allergy to suhkiatyh58-15-4390[facility] Work Phone: (20 sources)nickel sulfate; 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: [Unknown]Drug Etsttyi86-55-0187Knod, Other (See Comments)[place] (20 sources)regadenoson; 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: [REGADENOSON]Drug Gngjnul60-64-9272 [place]ness [place] ([place] sources)cyclobenzaprineDrug Qmxbpwr73-76-2295Aehgs (See Comments), Agitation [facility] (14 sources)Seasonal allergyPropensity to adverse reactions to substance 79-25-5535[facility] Work Phone: (16 sources)Trazodone And NefazodonePropensity to adverse reactions to drug 05-75-1642[facility] (2 sources)IodidesPropensity to adverse reactions to eizc32-13-6343EOL [facility] (1 source)CefaclorDrug Oqcznoc27-86-9288Dvq [facility] Repository (1 source)Iodine (And Iodine Containting Drugs)Drug allergy (disorder)10-21-2019 [facility] Repository (1 source)SimvastatinDrug Orxwacm80-96-4825Cwq [facility] Repository (8 sources)nickelDrug Qhfvlmy48-17-3523[facility]ypfv [facility] (9 sources)levoFLOXacin; 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: [LEVOFLOXACIN]Drug Pfppbzh83-26-0100 [facility] (3 sources)Environmental/SeasonalPropensity to adverse reactions to substance 58-55-0028Qql [facility] Medications Current Medications MedicationDrug Class(es)DatesSig (Normalized)Sig (Original)*OXYGEN 1 Miscellaneous (20 sources)Start: 07-28-2018*OXYGEN 1 Miscellaneous 07/28/2018 Provider:*OXYGEN 1 Miscellaneous (1 source)Start: 07-28-2018*OXYGEN 1 Miscellaneous 07/28/2018 Provider: acetaminophen 325 mg oral tablet (13 sources)Start: 77-20-4724pftg 1 tablet by mouth every four hours as needed for pain and fever and drgpeukg547 mg, oral, Every 4 hours PRN, mild pain - pain scale 1-3, temperature greater than 38 C, headaches, Temperature greater than 38.3 C, Starting on Sat12/30/24 at 2153, [Warning: Total Acetaminophen not to exceed more than 4 grams (4000 mg) in 24 hours]Start: 83-00-6260bazpkqsqpwjel (TYLENOL) tablet 650 mgStart: 54-66-0407syfyadqkuxooq (TYLENOL) tablet 650 mg Start: 07-21-2022 End: 43-23-5409kicibobumskea (TYLENOL) tablet 650 mgStart: 58-41-6497figw 650 mg by mouth every four hours as needed for pain, then take 4000 mg by mouth every twenty-four hours as needed for vahx775 mg, Oral, EVERY 4 HOURS PRN, Pain Mild (1-3), Fever, Fever >100.5 F (38 C), Starting Sat03/18/20 at 1350 Maximum dose of acetaminophen is 4000 mg from all sources in 24 hours. Recovery(Cath)Start: 91-44-8483aiibrhuyatqig (TYLENOL) tablet 650 mgStart: 03-17-2020 End: 90-76-2640kfrctgwdsbajh (TYLENOL) tablet 1,000 mgStart: 07-18-2019 acetaminophen (TYLENOL) tablet 650 mgStart: 05-27-2019 End: 22-55-9911zbtqfzwknfzbz (TYLENOL) tablet 1,000 mgStart: 04-22-2019 End: 20-63-2980tphyqgmyyiyng (TYLENOL) tablet 1,000 mgStart: 02-23-2019 End: 58-20-4491lkbtorhnqxkye (TYLENOL) tablet 1,000 mgtake 2 tablets by mouth every six hours as needed for feveracetaminophen (TYLENOL) 325 mg tablet Take 2 tablets (650 mg total) by mouth every 6 (six) hours asneeded for fever. Active acetaminophen 325 mg / oxyCODONE hydrochloride 5 mg oral tablet (20 sources)Opioid AgonistStart: 12-21-2024 End: 38-90-3533stwc 1 tablet by mouth every six hours as needed for pain and pain and pain and painoxyCODONE-acetaminophen (Percocet) 5-325 MG tablet Indications: Pain Take 1 tablet by mouth every 6(six) hours if needed for severe pain or moderate pain 120 tablet 12/21/2024 01/20/2025 ActiveStart: 10-27-2024 End: 91-81-1643snpFHQIRE-acetaminophen (PERCOCET) 7.5-325 MG per tablet Indications: Chronic right hip pain , Lumbar back pain with radiculopathy affecting right lower extremity , Chronic left hip pain , Chronic pain syndrome , Diabetic ulcer of left heel associated with type 2 diabetes mellitus, with fat layer exposed (HCC) , COPD with acute exacerbation (HCC) , Chronic diastolic congestive heart failure (HCC)Take 1 tablet by mouth every 6 hours as needed for Pain for up to 30 days. Max Daily Amount: 4 tablets 120 tablet 10/27/2024 11/26/2024 ActiveStart: 09-02-2024 End: 91-34-4620ymdHUTVBJ-acetaminophen (PERCOCET) 7.5-325 MG per tablet Indications: Chronic right hip pain , Lumbar back pain with radiculopathy affecting right lower extremity , Chronic left hip pain , Chronic pain syndrome , Diabetic ulcer of left heel associated with type 2 diabetes mellitus, with fat layer exposed (HCC) Take 1 tablet by mouth every 6 hours as needed for Pain for up to 30 days. Max Daily Amount: 4 tablets 120 tablet 09/02/2024 10/02/2024 ActiveStart: 08-15-2024 End: tablet, Oral, EVERY 4 HOURS PRN, Starting on Sat08/17/24 at 0753, Until Discontinued, Pain Moderate (4-6), allowed for higher pain score per patient request, Pain Severe (7-10), Maximum dose of acetaminophen is 4000 mg from all sources in 24 hours.Start: 08-12-2024 End: tablet, Oral, EVERY 4 HOURS PRN, Starting on Sat08/12/24 at 1555, Until 08/15/24 at 0633, PainSevere (7-10), Maximum dose of acetaminophen is 4000 mg from all sources in 24 hours.Start: 08-12-2024 End: 16-14-4744bosn 1 tablet by mouth every twenty-four hours1 tablet, Oral, Once, 1 dose, On 08/12/24 at 1145, Maximum dose of acetaminophen is 4000 mg fromall sources in 24 hours.Start: tablet, Oral, EVERY 4 HOURS PRN, Starting on Jenn 08/06/24 at 2019, Until Discontinued, Pain Severe (7-10), Maximum dose of acetaminophen is 4000 mg from all sources in 24 hours.Start: 07-27-2024 End: 86-88-4215cdpy 1 tablet by mouth every six hours as needed for pain, then take 4 tablets by mouth once daily as needed for painoxyCODONE-acetaminophen (PERCOCET) 7.5-325 MG per tablet Indications: Chronic right hip pain , Lumbar back pain with radiculopathy affecting right lower extremity , Chronic left hip pain , Chronic pain syndrome Take 1 tablet by mouth every 6 hours as needed for Pain for up to 3 days. Fill when due.OARS/PMDP reviewed. Intended supply: 30 days Max Daily Amount: 4 tablets 12 tablet 08/17/2024 08/20/2024 ActiveStart: 01-20-2024 End: 12-08-7341czdp 2 tablets by mouth every six hoursOxycodone-Acetaminophen Discontinued 2 TAB PO Q6H January 20, 2024 12:00am January 23, 2024 3:47pm Start: 62-32-4339uera 1 tablet by mouth every eight hoursOxycodone-Acetaminophen Active 1 TAB PO Every 8 hours January 19, 2024 12:00amStart: 07-10-2022 End: 18-75-2731vyeUDANIP-acetaminophen (PERCOCET) 5-325 MG per tablet Indications: Chronic right hip pain , Sacralpain , Lumbar back pain with radiculopathy affecting right lower extremity , Chronic left hip pain Take 1 tablet by mouth every 6 hours as needed for Pain for up to 7 days. Ok to Fill today. PDMP reviewed. Max Daily Amount: 4 tablets 28 tablet 0 08/13/2022 08/20/2022 ActiveStart: 99-32-5160xwxk 1 tablet by mouth every eight hours for painoxyCODONE-acetaminophen 5-325 MG per tablet take 1 tablet by mouth every 8 hours if needed for painfor up to 30 DAYS 0 04/14/2022 ActiveStart: 12-18-2021 End: 66-01-1226pbgv 1 tablet by mouth every eight hours as needed for pain oxyCODONE-acetaminophen (PERCOCET) 5-325 MG per tablet Indications: Chronic right hip pain , Sacralpain , Lumbar back pain with radiculopathy affecting right lower extremity , Chronic left hip pain Take 1 tablet by mouth every 8 hours as needed for Pain for up to 30 days. 90 tablet 0 12/18/2021 01/17/2022 ActiveStart: 06-20-2021 End: 45-75-2604twiXLHNPQ-acetaminophen (PERCOCET) 5-325 MG per tablet Indications: Chronic right hip pain , Lumbarback pain with radiculopathy affecting right lower extremity Take 1 tablet by mouth every 6 hours as needed for Pain for up to 7 days. Intended supply: 7 days. Take lowest dose possible to manage pain 28 tablet 0 06/20/2021 06/27/2021 ActiveStart: 04-06-2021 End: 73-04-8349jglUZNOCV-acetaminophen (PERCOCET) 5-325 MG per tablet Indications: Chronic right hip pain , Fall, initial encounter , Right hip pain Take 1 tablet by mouth every 6 hours as needed for Pain for up to7 days. Intended supply: 7 days. Take lowest dose possible to manage pain 28 tablet 0 04/06/2021 04/13/2021 ActiveStart: 97-77-4230mjxWLODHZ-acetaminophen (PERCOCET) 5-325 MG per tablet 1 tabletStart: 01-12-2021 End: 79-49-1890fypGIQSEI-acetaminophen (PERCOCET) 5-325 MG per tablet Indications: Multiple contusions Take 1 tablet by mouth every 6 hours as needed for Pain for up to 3 days. Intended supply: 3 days. Take lowest dose possible to manage pain 12 tablet 0 01/12/2021 01/15/2021 ActiveStart: 12-04-2020 End: 28-03-9964gcxPKCMBV-acetaminophen (PERCOCET) 5-325 MG per tablet Indications: Pelvic pain Take 1 tablet by mouth every 6 hours as needed for Pain for up to 3 days. Intended supply: 3 days. Take lowest dose possible to manage pain 12 tablet 0 12/04/2020 12/07/2020 ActiveStart: 45-57-4750ygaIPIQPZ- acetaminophen (PERCOCET) tablet 5-325 mg (2 tablet STARTER PACK)Start: 04-05-2020 End: 26-19-2893xwtb 1 tablet by mouth every six hours as needed for pain, then take 1 tablet by mouth as needed for painoxyCODONE-acetaminophen (PERCOCET) 5- 325 MG per tablet Indications: Acute right-sided low back painwithout sciatica Take 1 tablet by mouth every 6 hours as needed for Pain for up to 3 days. Intendedsupply: 3 days. Take lowest dose possible to manage pain 4 tablet 0 04/05/2020 04/08/2020 ActiveStart: 03-21-2020 End: 60-79-6269oueEXRZRZ-acetaminophen (PERCOCET) 5-325 MG per tablet 1 tablet Start: 02-12-2020 End: 29-27-0079obuk 1 tablet by mouth every four hours as needed for pain, then take 1 tablet by mouth as needed for painoxyCODONE-acetaminophen (PERCOCET) 5- 325 MG per tablet Indications: Osteoarthritis, unspecified osteoarthritis type, unspecified site , Avascular necrosis (HCC) , Urinary tract infection without hematuria, site unspecified Take 1 tablet by mouth every 4 hours as needed for Pain for up to 3 days. Intended supply: 3 days. Take lowest dose possible to manage pain 20 tablet 0 02/12/2020 02/15/2020 ActiveStart: 10-06-2019 End: 83-42-0826vevu 1 tablet by mouth every six hours as needed for pain oxyCODONE-acetaminophen (PERCOCET) 5-325 MG per tablet Indications: Chronic bilateral low back painwith bilateral sciatica Take 1 tablet by mouth every 6 hours as needed for Pain for up to 3 days. 10 tablet 0 10/06/2019 10/09/2019 ActiveStart: 10-06-2019 End: 40-78-3980tinGIPKCT-acetaminophen (PERCOCET) 5-325 MG per tablet 1 tablet Start: 07-30-2019 End: 70-32-2259Pzonchyf 5-325 MG Oral Tablet 09/09/2019 - 09/15/2019 Provider: Vahid Nagy CNPStart: 02-19-2019 End: 78-75-1626nxpYTESAQ-Acetaminophen 5-325 MG Oral Tablet 02/19/2019 - 03/12/2019 Provider: Vahid Nagy CNPStart: 01-13-2019 End: 68-30-7770kzhAUYBXV-acetaminophen (PERCOCET) 5-325 MG per tablet 1 tablet Start: 83-27-9149tisKKNBOR-Acetaminophen 7.5-325MG Oral Tablet 06/27/2018 Provider: Vahid Nagy CNPStart: 04-29-2018 End: 12-81-7758wylXZNAQL-Acetaminophen 7.5-325MG Oral Tablet 05/30/2018 - 06/27/2018 Provider: Vahid Nagy CNPStart: 04-26-2018 End: 59-60-2913ztwBDMGNF-Acetaminophen 7.5-325 MG OR TABS 04/26/2018 - 04/26/2018 Provider: Parker ProviderStart: 98-25-8224bixg 1 tablet by mouth every eight hours as needed for painoxycodone-acetaminophen 7.5-325 mg oral tablet 03/26/2018 take 1 tablet (7.5/325mg) by mouth every 8 hours as needed for severe chronic lumbar pain (M79.606/M54.16)Start: 03-26-2018 End: 95-91-0247asrNWBBFI-Acetaminophen 7.5-325 MG OR TABS 03/26/2018 - 03/26/2018 Provider:Start: 02-24-2018 End: 76-64-8540nwyDTHMTK-Acetaminophen 7.5-325 MG OR TABS 02/24/2018 - 02/24/2018 Provider:Start: 48-83-5975qsii 1 tablet by mouth every eight hours as needed for painoxycodone-acetaminophen 7.5-325 mg oral tablet 02/24/2018 take 1 tablet (7.5/325mg) by mouth every 8 hours as needed for severe chronic lumbar pain (M79.606/M54.16)Start: 01-20-2018 End: 62-10-8467bjjFTLDPB-Acetaminophen 7.5-325 MG OR TABS 01/20/2018 - 01/20/2018 Provider:Start: 12-27-2017 End: 40-51-2649zqvIRYBYO-Acetaminophen 5-325 MG OR TABS 12/27/2017 - 12/27/2017 Provider:Start: 45-96-2708cqbp 1 tablet by mouth every eight hours as needed for painoxycodone-acetaminophen 5-325 mg oral tablet 12/27/2017 take 1 tablet by oral route every 8 hours asneeded for modertae to severe back pain for 30 day supply (dx M79.606, M54.16)Start: 11-26-2017 End: 42-45-1243rseTRAKHM-Acetaminophen 5-325 MG OR TABS 11/26/2017 - 11/26/2017 Provider:Start: 63-79-9401rxgg 1 tablet by mouth every eight hours as needed for painoxycodone-acetaminophen 5-325 mg oral tablet 11/26/2017 take 1 tablet by oral route every 8 hours asneeded for modertae to severe back pain for 30 day supply (dx M79.606, M54.16)Start: 11-04-2017 End: 65-76-6708wjwBAGZXM-Acetaminophen 5-325 MG OR TABS 11/04/2017 - 11/04/2017 Provider:Start: 10-22-2017 End: 68-23-0721awyOSATYF-Acetaminophen 5-325 MG OR TABS 10/22/2017 - 10/22/2017 Provider:Start: 91-86-1457yfiu 1 tablet by mouth every eight hours as needed for painoxycodone-acetaminophen 5-325 mg oral tablet 10/22/2017 take 1 tablet by oral route every 8 hours asneeded for modertae to severe back pain (dx M79.606, M54.16)Start: 04-14-2015 End: 30-60-8718dyyNWHIIQ-Acetaminophen 7.5-325 MG OR TABS 04/14/2015 - 04/14/2015 Provider:Start: 04-14-2015 End: 89-57-6435bnow 1 tablet by mouth every eight hours as neededoxycodone- acetaminophen 7.5-325 mg oral tablet 04/14/2015 12/14/2016 take 1 tablet by oral route every 8 hours as neededStart: 03-11-2015 End: 61-03-6912rdnJPKEJO-Acetaminophen 7.5-325 MG OR TABS 03/11/2015 - 03/11/2015 Provider:Start: 02-10-2015 End: 85-22-3949miyCGJBUL-Acetaminophen 7.5-325 MG OR TABS 02/10/2015 - 02/10/2015 Provider: End: 39-74-5042dgdh 1 tablet by mouth every six hours as needed for pain oxyCODONE-acetaminophen (PERCOCET) 10-325 mg per tablet Take 1 tablet by mouth every 6 (six) hours as needed for pain. 12/30/2024 Discontinued (Dose adjustment)albuterol 0.833 mg/ml / ipratropium bromide 0.167 mg/ml inhalation solution (20 sources)Anticholinergic, beta2-Adrenergic AgonistStart: mL, nebulization, Every 4 hours while awake, First dose on Jenn 12/31/24 at 0700, Implement INPATIENT/ED Bronchodilator Clinical Practice Guidelines? NoStart: 12-30-2024 End: mL, nebulization, Once, On Sat12/30/24 at 1510, For 1 dose, Implement INPATIENT/ED BronchodilatorClinical Practice Guidelines? YesStart: 08-06-2024 End: 12-47-3885nson 1 dose by inhalation four times daily1 Dose, Inhalation, 4 TIMES DAILY RESP, First dose on Jenn 08/06/24 at 1600, Until Discontinued, Initiate RT Bronchodilator Protocol: Yes - Inpatient ProtocolStart: 10-23-2022 ipratropium-albuteroL (DUONEB) 0.5 mg-3 mg(2.5 mg base)/3 mL nebulizer Indications: COPD exacerbation ([facility]) Inhale 3 mL by nebulization 3 (three) times a day as needed for wheezing or shortness of breath. 3 mL nebulization every 8 hours x7 days, then every 8 hours as needed for cough, shortnessof breath, and or wheezing 240 mL 2 10/23/2022 ActiveStart: 66-14-2683mgzcimdjblk- albuterol (DUONEB) nebulizer solution 1 ampuleStart: 10-06-2019 End: 73-60-2106lncjamulhvv-albuterol (DUONEB) nebulizer solution 1 ampuleStart: 07-18-2019 End: 83-67-0112oxfqydvhdci-albuterol (DUONEB) nebulizer solution 1 ampuleStart: 04-21-2019 End: 08-15-0992dqdoxblqepr-albuterol (DUONEB) nebulizer solution 1 ampule albuterol sulfate HFA 108 (90 Base) MCG/ACT inhaler 2 puff (1 source)Start: 05-06-7601vaufomsmd sulfate HFA 108 (90 Base) MCG/ACT inhaler 2 puff1 ml alirocumab 75 mg/ml auto-injector (12 sources)PCSK9 InhibitorStart: 82-68-8713xlhrlctbzx (PRALUENT) 75 MG/ML SOAJ injection pen Indications: Abnormal stress test , CAD S/P percutaneous coronary angioplasty , Essential hypertension , Mixed hyperlipidemia , Tobacco abuse counseling , PVD (peripheral vascular disease) ([facility]) , Bilateral carotid artery disease, unspecified type ([facility]) Inject 1 mL into the skin every 14 days 1.96 mL 3 02/01/2020 Activealuminum hydroxide 40 mg/ml / magnesium hydroxide 40 mg/ml / simethicone 4 mg/ml oral suspension (1 source)Start: 63-20-4745btbd 30 mL by mouth four times daily at bedtime as mL, oral, 4 times daily after meals and at bedtime as needed, dyspepsia, Starting on Sat12/30/24at 2153, Look-alike/sound-alike medication - verify indication for use. Shake well., Indications: dyspepsiaamino acids- protein hydrolys 17-100 gram-kcal/30 mL liquid (2 sources)take 30 mL by mouth in the morningamino acids-protein hydrolys 17-100 gram-kcal/30 mL liquid Take 30 mL by mouth in the morning. Pro-stat oral lqiuid ( amino nligb-qdszmub-lhiqurecjyy) -give 30 ml po in the morning for wound care. Activetake 30 mL by mouth in the morningamino acids-protein hydrolys 17-100 gram-kcal/30 mL liquid Take 30 mL by mouth in the morning. Pro-stat oral lqiuid ( amino prjfe-eofsveq-ochrktyalke) -give 30 ml po in the morning for wound care. amitriptyline hydrochloride 10 mg oral tablet (1 source)Tricyclic AntidepressantStart: 15-94-7190wxpq 1 tablet by mouth once dailyamitriptyline (ELAVIL) 10 MG tablet Indications: Chronic right hip pain , Chronic left hip pain , Chronic pain syndrome , Chronic diastolic congestive heart failure (HCC) Take 1 tablet by mouth nightly 90 tablet 11/16/2024 Active amLODIPine 10 mg oral tablet (20 sources)Dihydropyridine Calcium Channel BlockerStart: 99-22-3365fowq 10 mg by mouth once daily for fpyhktcxwoud92 mg, oral, Daily, First dose on [facility] 12/31/24 at 0900, Look-alike/sound-alike medication - verify indication for use. Avoid grapefruit juice., Indications: hypertensionStart: 69-35-8673lcIZLXOvom (NORVASC) 5 MG tablet 08/19/2024 ActiveStart: 64-55-6160fnuy 1 tablet by mouth once dailyamLODIPine (NORVASC) 10 MG tablet Indications: Primary hypertension Take 1 tablet by mouth daily 90tablet 1 06/24/2024 ActiveStart: 29-01-6370wmuf 1 tablet by mouth once dailyamLODIPine (NORVASC) 10 MG tablet Indications: Primary hypertension Take 1 tablet by mouth daily 90tablet 3 01/28/2023 ActiveStart: 22-50-6332dmht 1 tablet by mouth once dailyamLODIPine (NORVASC) 10 MG tablet Indications: Primary hypertension take 1 tablet by mouth once daily 90 tablet 0 07/26/2022 ActiveStart: 48-53-7712yfra 1 tablet by mouth once dailyamLODIPine (NORVASC) 10 MG tablet Indications: Primary hypertension take 1 tablet by mouth once daily 90 tablet 0 05/04/2022 ActiveStart: 38-33-6994ajts 1 tablet by mouth once dailyamLODIPine (NORVASC) 10 MG tablet Take 1 tablet by mouth daily 30 tablet 0 12/26/2021 ActiveStart: 02-20-2021 End: 88-77-3473lvdh 1 tablet by mouth once dailyamLODIPine (NORVASC) 5 MG tablet Take 5 mg by mouth daily 0 02/20/2021 06/22/2021 Discontinued (LIST CLEANUP) Start: 07-26-2019 End: 73-48-4434bbeq 1 tablet by mouth once dailyamLODIPine (NORVASC) 10 MG tablet Take 1 tablet by mouth daily 30 tablet 3 07/26/2019 ActiveStart: 07-21-2019 End: 64-65-5373isxd 1 tablet by mouth once dailyamLODIPine (NORVASC) 10 MG tablet Take 1 tablet by mouth daily 30 tablet 3 07/26/2019 03/17/2020 Dis continued (LIST CLEANUP)Start: 07-20-2019 End: 64-06-4139bhENBDMhex (NORVASC) tablet 5 mgStart: 05-04-2019 End: 05-16-9327nzyl 1 tablet by mouth once dailyamLODIPine (NORVASC) 2.5 MG tablet Take 1 tablet by mouth daily 30 tablet 3 05/04/2019 07/25/2019 Di scontinued (Stop Taking at Discharge)amoxicillin 500 mg oral tablet (1 source)Penicillin-class AntibacterialStart: 16-83-4702Ncefypbjpxc 500 MG Oral Tablet 03/03/2019 Provider: Elena Malik CNPamoxicillin 875 mg / clavulanate 125 mg oral tablet (20 sources)Penicillin-class AntibacterialStart: 08-10-2024 End: 96-19-0253udbl 1 tablet by mouth twice daily1 tablet, Oral, 2 TIMES DAILY, 28 doses, First dose on Sat08/12/24 at 2100, Last dose on Sat08/26/24 at 0900, Antimicrobial Indications: Skin and Soft Tissue Infection, Skin duration of therapy: Other, Other Skin and Soft Tissue Infection Duration: 14Start: 71-35-3033Bjqacuwms 500-125 MG Oral Tablet 04/12/2020 Provider: Vahid Nagy CNP Start: 67-69-5667Tdzdgpbxg 500-125 MG Oral Tablet 04/12/2020 Provider: Vahid Nagy CNPStart: 09-09-2019 End: 87-44-7656Ierxgbdqi 500-125 MG Oral Tablet 09/09/2019 - 09/23/2019 Provider: Vahid Nagy CNPStart: 88-43-8289Sdvuuwgdr 500-125MG Oral Tablet 10/30/2018 Provider: Vahid Nagy CNPStart: 41-90-4086gqga 1 tablet by mouth every twelve hoursAugmentin 875-125 mg oral tablet 02/10/2018 take 1 tablet by oral route every 12 hours x 10 daysStart: 02-10-2018 End: 36-20-0452Scwoiicpr 875-125 MG OR TABS 02/10/2018 - 02/10/2018 Provider: Start: 02-10-2018 End: 29-80-4337Uekqkwdru 875-125MG OR TABS 02/10/2018 - 02/10/2018 Provider: apixaban 5 mg oral tablet (14 sources)Factor Xa InhibitorStart: 42-77-2413haoc 5 mg by mouth twice daily5 mg, oral, 2 times daily, First dose on Sat12/30/24 at 2215, Indication: Nonvalvular Atrial Fibrillation (NVAF)Start: 88-88-7207gzur 0.5 tablet by mouth twice dailyapixaban (ELIQUIS) 5 MG TABS tablet Take 0.5 tablets by mouth 2 times daily 90 tablet 1 09/02/2024 ActiveStart: 19-32-0836ubnl 5 mg by mouth once daily5 mg, Oral, DAILY, First dose on Sat08/13/24 at 2200, Until Discontinued, Indication of Use: A Fib/A Flutter, ANTICOAGULANTStart: 77-25-9922aafy 1 tablet by mouth twice dailyApixaban (Eliquis) 5 mg tablet Active 5 MG PO Twice daily 60 January 23, 2024 12:00amascorbic acid 500 mg chewable tablet (2 sources)Vitamin CStart: 22-86-0325puod 1 tablet by mouth twice dailyascorbic acid (VITAMIN C) 500 MG tablet Take 1 tablet by mouth 2 times daily 30 tablet 3 5ActiveStart: 87-20-0334hodj 1 tablet by mouth twice dailyascorbic acid (VITAMIN C) 500 MG tablet Take 1 tablet by mouth 2 times daily for 7 days 14 tablet ActiveAspir-81 Oral Tablet Delayed Release (4 sources)Start: 60-69-6023Rdjbq-81 Oral Tablet Delayed Release 04/29/2018 Provider:Aspir-81 Oral Tablet Delayed Release (1 source)Start: 20-23-1547Zhnqv-81 Oral Tablet Delayed Release 04/29/2018 Provider:aspirin 81 mg chewable tablet (20 sources)Platelet Aggregation Inhibitor, Nonsteroidal Anti-inflammatory Drug Start: 16-90-0961Lcbyhcd (Adult Low Dose Aspirin) 81 mg tablet,delayed release (DR/EC) Active 81 MG PO Daily 2023 12:00amStart: 54-82-1152okbx 81 mg by mouth once daily81 mg, oral, Daily, First dose on [facility] 12/31/24 at 0900 Start: 50-94-9252dakx 1 tablet by mouth once dailyaspirin EC 81 MG EC tablet Indications: Primary hypertension Take 1 tablet by mouth daily 30 tablet3 07/10/2022 ActiveStart: 04-39-8492phqnfkx 81 MG Chew Tab chewable tablet Chew 1 tablet daily. 0 06/22/2021 ActiveStart: 17-19-6403jriexxv chewable tablet 81 mg Start: 93-92-1721hurzund chewable tablet 81 mgStart: 04-26-2018 End: 18-02-4438Orhpvzk 81 81 MG OR TBEC 04/26/2018 - 04/26/2018 Provider: Parker ProviderStart: 02-24-2018 End: 14-06-8814vuhu 1 tablet by mouth once dailyaspirin EC 81 MG EC tablet Take 1 tablet by mouth daily 30 tablet 3 03/19/2020 ActiveAspirin Adult Low Dose 81 MG Oral Tablet Delayed Release (4 sources)Start: 03-21-2020 End: 36-80-3719Htkgzhd Adult Low Dose 81 MG Oral Tablet Delayed Release 03/21/2020 - 03/16/2021 Provider: Vahid Nagy CNPStart: 03-21-2020 End: 56-37-7339Yfkwfsz Adult Low Dose 81 MG Oral Tablet Delayed Release 03/21/2020 - 04/12/2020 Provider:azelastine hydrochloride 0.137 mg/actuat / fluticasone propionate 0.05 mg/actuat metered dose nasalspray (1 source)Corticosteroid, Histamine-1 Receptor AntagonistStart: 08-13-2023 Azelastine-Fluticasone 137-50 MCG/ACT SUSP Indications: Allergic rhinitis, unspecified seasonality,unspecified trigger 1 each by Nasal route in the morning and at bedtime 23 g 08/13/2023 Activebenzonatate 100 mg oral capsule (20 sources)Non-narcotic AntitussiveStart: 59-07-1919Jwnjd: 85-40-2111lvax 200 mg by mouth three times mg, Oral, 3 TIMES DAILY, First dose on [facility] 08/13/24 at 0900, Until DiscontinuedStart: 21-91-4073Rndqu: 04-06-2024 End: 46-24-0135ddzyxrrjbfk (TESSALON PERLES) 200 mg capsule Take 1 capsule (200 mg total) by mouth as needed in the morning and 1 capsule (200 mg total) as needed at noon and 1 capsule (200 mg total) as needed in the evening for cough. 04/06/2024 ActiveStart: 44-75-2415vuxq 1 capsule by mouth twice daily as needed for coughbenzonatate (TESSALON) 100 MG capsule Indications: Chronic obstructive pulmonary disease, unspecified COPD type (HCC) Take 1 capsule by mouth 2 times daily as needed for Cough 30 capsule 0 08/13/2022ctiveStart: 08-13-2022 End: 65-21-9443ytbc 1 capsule by mouth three times daily as needed for cough benzonatate (TESSALON) 200 MG capsule Take 1 capsule by mouth 3 times daily as needed for Cough 30 capsule 0 08/13/2022 08/20/2022 ActiveStart: 32-11-7275qhto 1 capsule by mouth twice daily as needed for coughbenzonatate (TESSALON) 100 MG capsule Indications: Chronic obstructive pulmonary disease, unspecified COPD type (HCC) Take 1 capsule by mouth 2 times daily as needed for Cough 30 capsule 0 07/10/2022ctiveStart: 57-02-7931srvlkwkmnvt (TESSALON) capsule 100 mgStart: 03-17-2021 End: 30-21-4604jtfuxvrsnqp (TESSALON) capsule 200 mgStart: 01-19-2020 End: 47-84-6668Dwqfiiup Perles 100 MG Oral Capsule 02/16/2020 - 03/12/2020 Provider: Vahid Nagy CNPStart: 12-21-2019 End: 86-14-1405Oqsfvltd Perles 100 MG Oral Capsule 12/21/2019 - 11/16/2019 Provider: Vahid Nagy CNPStart: 12-21-2019 End: 37-30-4969Wmmjwjlr Perles 100 MG Oral Capsule 12/21/2019 - 11/16/2019 Provider: Vahid Nagy CNPStart: 12-21-2019 End: 02-35-8388Gthwztdw Perles 100 MG Oral Capsule 12/21/2019 - 11/16/2019 Provider: Vahid Nagy CNPStart: 12-21-2019 End: 04-91-0391Wfogjdih Perles 100 MG Oral Capsule 12/21/2019 - 11/16/2019 Provider: Vahid Nagy CNPStart: 18-35-1458Roghmaed Perles 100 MG Oral Capsule 01/22/2019 Provider: Vahid Nagy CNPStart: 09-30-2018 End: 27-50-6292Tkalqdaj Perles 100MG Oral Capsule 09/30/2018 - 12/11/2018 Provider: Vahid Nagy CNPStart: 07-28-2018 End: 65-92-3602Werlvcri Perles 100MG Oral Capsule 07/28/2018 - 08/27/2018 Provider: Vahid Nagy CNPStart: 52-56-1176oxna 1 capsule by mouth three times dailyTessalon Perles 100 mg oral capsule 03/26/2018 take 1 capsule (100 mg) by oral route 3 times per day for up to 30 daysStart: 03-26-2018 End: 21-28-5467NWTPKIHX PERLES 100 mg MISC 03/26/2018 - 03/26/2018 Provider: Start: 01-27-2018 End: 51-07-6643WVWJSNRI PERLES 100 mg MISC 01/27/2018 - 01/27/2018 Provider: Start: 52-03-3283nkkk 1 capsule by mouth three times dailyTessalon Perles 100 mg oral capsule 01/27/2018 take 1 capsule (100 mg) by oral route 3 times per day for up to 30 daysStart: 12-06-5657rvba 1 capsule by mouth three times daily Tessalon Perles 100 mg oral capsule 12/23/2017 take 1 capsule (100 mg) by oral route 3 times per dayx 14 daysStart: 12-23-2017 End: 71-00-9098BNRKVTEF PERLES 100 mg MISC 12/23/2017 - 12/23/2017 Provider: Blood Glucose Monitoring Suppl w/Device KIT (7 sources)Start: 18-78-9730Ganfs Glucose Monitoring Suppl w/Device KIT Indications: Type 2 diabetes mellitus with other specified complication, without long-term current use of insulin (HCC) 1 Device by Does not apply route Daily 1 kit 0 06/22/2021 ActiveBlood Pressure Kit (15 sources)Start: 77-15-2645Aucqa Pressure Kit 07/30/2019 Provider: Vahid Nagy CNPBlood Pressure Kit (1 source)Start: 32-49-8408Sitkm Pressure Kit 07/30/2019 Provider: Vahid Nagy CNPBlood Pressure KIT (5 sources)Start: 52-50-5920Lfdmw Pressure KIT 1 kit by Does not apply route daily 1 kit 10/18/2023 ActiveBlood Pressure Monitoring MISC (20 sources)Start: 41-21-8073Xftug Pressure Monitoring MISC Indications: Atherosclerosis of artery of extremity with intermittent claudication (HCC) To monitor blood pressure as needed. Please order device that is covered by insu albert. 1 kit 0 07/25/2019 SuspendedStart: 83-18-3398Hwcni Pressure Monitoring [facility] Indications: Atherosclerosis of artery of extremity with intermittent claudication (HCC) To monitor blood pressure as needed. Please order device that is covered by insurance. 1 kit 0 07/25/2019 ActiveStart: 06-28-2014 End: 90-69-1745Kwbsk Pressure Monitoring [facility] Indications: Atherosclerosis of artery of extremity with intermittent claudication (HCC) To monitor blood pressure as needed. Please order device that is covered by insurance. 1 kit 0 06/28/2014 07/25/2019 Discontinued (REORDER)Start: 53-32-1675Htsln Pressure Monitoring [facility] Indications: Atherosclerosis of artery of extremity with intermittent claudication (HCC) To monitor blood pressure as needed. Please order device that is covered by insurance. 1 kit 0 06/28/2014 Shxlem415 actuat budesonide 0.18 mg/actuat dry powder inhaler (6 sources)CorticosteroidStart: 40-97-5137lkis 2 puff(s) by inhalation in the morningbudesonide (PULMICORT FLEXHALER) 180 MCG/ACT AEPB inhaler Indications: Chronic obstructive pulmonary disease, unspecified COPD type (HCC) Inhale 2 puffs into the lungs in the morning and 2 puffs in the evening. 1 each 5 12/22/2021 ActiveStart: 05-10-2021 End: 60-57-6823ltol 2 puff(s) by inhalation twice dailybudesonide (PULMICORT FLEXHALER) 180 MCG/ACT AEPB inhaler Inhale 2 puffs into the lungs 2 times daily 1 each 2 05/10/2021 06/22/2021 Discontinued (LIST CLEANUP)Start: 43-41-1552290 mcg (0.25 mg), Nebulization, 2 TIMES DAILY, First dose on [facility] 03/17/20 at 2100 Substituted for Beclomethasone (QVAR).Calcium (12 sources)Phosphate Binder, CalciumStart: 37-65-1932Higqote 600MG Oral Tablet 04/29/2018 Provider:Start: 08-16-2017 End: 23-65-7942TEAOIHG 600 600 mg calcium(1,500 MG) MISC 08/16/2017 - 08/16/2017 Provider:carisoprodol 350 mg oral tablet (20 sources)Muscle RelaxantStart: 04-29-2018 End: 04-26-9318Esdtailsdqvq 350MG Oral Tablet 05/27/2018 Provider: Vahid Nagy CNPStart: 12-12-2017 End: 61-94-1094Bftyzpfjlqdf 350MG OR TABS 12/12/2017 - 12/12/2017 Provider: Start: 12-09-2017 End: 52-45-7153Fofbmmcahsus 250 MG OR TABS 12/09/2017 - 12/09/2017 Provider: carvedilol 12.5 mg oral tablet (10 sources)alpha-Adrenergic Bella, beta-Adrenergic BlockerStart: 02-06-2024 take 12.5 mg by mouth twice daily at zjghekwd09.5 mg, oral, 2 times daily with meals, First dose on [facility] 12/31/24 at 0800, Give with meal or snack. Look-alike/sound-alike medication - verify indication for use.Start: 09-02-2023 take 1 tablet by mouth twice daily at mealtimecarvedilol (COREG) 12.5 MG tablet take 1 tablet by mouth twice a day with meals 180 tablet 09/02/2023 Activetake 1 tablet by mouth twice daily at mealtimecarvedilol (COREG) 12.5 MG tablet Take 12.5 mg by mouth 2 times daily (with meals) 0 ActivecefTRIAXone 1000 mg injection (2 sources)Cephalosporin AntibacterialStart: 32-57-0946izam 1000 mg intravenously every twenty-four hours1,000 mg, intravenous, at 100 mL/hr, Administer over 30 Minutes, Every 24 hours, First dose on [facility] 12/31/24 at 1800, Look-alike/sound-alike medication - verify indication for use. Do not co-administerwith calcium-containing solutions such as Lactated Ringers., Indication: UTIStart: 12-30-2024 End: ,000 mg, intravenous, at 100 mL/hr, Administer over 30 Minutes, Once, On Sat12/30/24 at 1749, For 1 dose, Look-alike/sound-alike medication - verify indication for use. Do not co-administer with calcium-containing solutions such as Lactated Ringers., Indication: UTIcefuroxime 250 mg oral tablet (3 sources)Cephalosporin AntibacterialStart: 01-01-2025 End: 63-00-7059emic 2 tablets by mouth in the morning, then take 2 tablets by mouth at bedtimeceFUROxime (CEFTIN) 250 mg tablet Take 2 tablets (500 mg total) by mouth in the morning and 2 tablets (500 mg total) before bedtime. Do all this for 3 days. 01/01/2025 01/04/2025 ActiveStart: 07-16-2024 End: 66-29-4059zzji 1 tablet by mouth in the morning, then take 1 tablet by mouth at bedtimeceFUROxime (CEFTIN) 500 mg tablet Take 1 tablet (500 mg total) by mouth in the morning and 1 tablet(500 mg total) before bedtime. Do all this for 7 days. 14 tablet 07/16/2024 07/23/2024 Jwfbyz42 hr chlorpheniramine polistirex 1.6 mg/ml / HYDROcodone polistirex 2 mg/ml extended release suspen ryan (3 sources)Histamine-1 Receptor Antagonist, Opioid AgonistStart: 03-13-2020 End: 36-57-1239jbvc 5 mL by mouth every twelve hours as needed for cough HYDROcodone-chlorpheniramine (TUSSIONEX PENNKINETIC ER) 10-8 MG/5ML SUER Indications: Bronchitis Take 5 mLs by mouth every 12 hours as needed (cough) for up to 3 days. 30 mL 0 03/13/2020 03/16/2020 ActiveStart: 03-13-2020 End: 45-36-4905ORRHQqfdmal-chlorpheniramine (TUSSIONEX) 10-8 MG/5ML oral suspension 5 mLStart: 04-21-2019 End: 45-66-3405rdiqdfpkcay-chlorpheniramine (TUSSIONEX) 10-8 MG/5ML oral suspension 5 mLcholecalciferol 0.025 mg oral tablet (20 sources)Vitamin DStart: 52,000 Units, oral, Daily, First dose on [facility] 12/31/24 at 1515, 1000 units = 25 mcgStart: 04-29-2018 End: 54-01-4208Fsnsfjj D3 400UNIT Oral Tablet 04/29/2018 - 04/12/2020 Provider: Start: 70-61-6334Ebhnugs D3 400UNIT Oral Tablet 04/29/2018 Provider:Start: 77-41-5724nyks 1 capsule by mouth twice dailyVitamin D3 400 unit oral capsule 08/16/2017 take 1 capsule by oral route twice dailycholecalciferol, vitamin D3, 2,000 units tablet Take by mouth in the morning. Activecromolyn sodium 40 mg/ml ophthalmic solution (4 sources)Mast Cell StabilizerStart: 96-85-1081Gfjuwihd Sodium 4% Ophthalmic Solution 07/28/2018 Provider: Vahid Nagy CNPdextromethorphan hydrobromide 1 mg/ml / guaiFENesin 20 mg/ml oral solution (2 sources)Uncompetitive W-mcdgzk-B-aspartate Receptor Antagonist, Sigma-1 AgonistStart: 11-04-2023 End: 57-67-7991Mmjveraxkhhowtxe-guaiFENesin (ROBITUSSIN DM) 5-100 MG/5ML LIQD liquid Take 5 mLs by mouth every 4 hours as needed for Cough 120 mL 11/04/2023 11/14/2023 ActiveStart: 33-52-3984azmeLXFuahl-dextromethorphan (ROBITUSSIN DM) 100-10 MG/5ML syrup 5 mLdiphenhydrAMINE hydrochloride 25 mg oral capsule (2 sources)Histamine-1 Receptor AntagonistStart: 16-57-2774hcgb 1 capsule by mouth every six hours as neededdiphenhydrAMINE (BENADRYL) 25 mg capsule Take 1 capsule (25 mg total) by mouth every 6 (six) hours as needed for itching. 30 capsule 12/11/2024 Activedocusate sodium 100 mg oral capsule (11 sources)Start: 02-06-2024 End: 79-17-5320zrnsdckq sodium (COLACE) 100 mg capsule Take 1 capsule (100 mg total) by mouth as needed in the morning and 1 capsule (100 mg total) as needed in the evening for constipation. 02/06/2024 Activedocusate sodium 50 mg / sennosides, [facility] 8.6 mg oral tablet (1 source)Start: 04-51-7760xknm 1 tablet by mouth every twelve hours as needed for constipation1 tablet, oral, Every 12 hours PRN, constipation, Starting on Sat12/30/24 at 2153doxycycline hyclate 100 mg oral capsule (6 sources)Tetracycline-class DrugStart: 12-30-2024 End: 09-44-6894aiqe 1 capsule by mouth in the morning, then take 1 capsule by mouth at bedtimedoxycycline (VIBRAMYCIN) 100 mg capsule Take 1 capsule (100 mg total) by mouth in the morning and 1capsule (100 mg total) before bedtime. Do all this for 3 days. 01/01/2025 01/04/2025 ActiveStart: 07-16-2024 End: 25-37-2251swaj 1 tablet by mouth in the morning, then take 1 tablet by mouth at bedtimedoxycycline (VIBRA-TABS) 100 mg tablet Take 1 tablet (100 mg total) by mouth in the morning and 1 tablet (100 mg total) before bedtime. Do all this for 7 days. 14 tablet 07/16/2024 07/23/2024 ActiveStart: 08-07-2022 End: 02-57-1705rvce 1 tablet by mouth twice dailydoxycycline hyclate (VIBRA- TABS) 100 MG tablet Indications: Bronchitis , Hypoxia Take 1 tablet by mouth 2 times daily for 10 days 20 tablet 0 08/07/2022 08/17/2022 ActiveStart: 03-19-2021 End: 62-03-2361tiey 1 tablet by mouth twice dailydoxycycline hyclate (VIBRA- TABS) 100 MG tablet Take 1 tablet by mouth 2 times daily for 10 days 20 tablet 0 03/19/2021 03/29/2021 ActiveElastic Bandages & Supports (JOBST KNEE HIGH COMPRESSION SM) MISC (3 sources)Start: 43-13-2930Pbjkutm Bandages & Supports (JOBST KNEE HIGH COMPRESSION ) [facility] [place] Indications: Leg edema 1 eachby Does not apply route daily as needed (Leg swelling) 2 each 0 03/23/2021 Activeempagliflozin 10 mg oral tablet (3 sources)Sodium-Glucose Cotransporter 2 InhibitorStart: 47-78-1073hxar 1 tablet by mouth once dailyempagliflozin (JARDIANCE) 10 MG tablet Take 1 tablet by mouth daily 08/18/2024 ActiveStart: 94-24-1124ipne 1 tablet by mouth once dailyempagliflozin (JARDIANCE) 10 MG tablet Take 1 tablet by mouth daily 08/18/2024 ActiveStart: 50-39-790814 mg, Oral, DAILY, First dose on 08/15/24 at 0900, Until Discontinued, Indication of Use: Type 2 diabetes, Heart Failure (preserved EF), Substituted for dapagliflozin (FARXIGA). Note: Discontinuation of therapy 3 days prior to surgery or major procedures is recommended given the risk for euglycemic diabetic ketoacidosis.0.3 ml enoxaparin sodium 100 mg/ml prefilled syringe (4 sources)Low Molecular Weight HeparinStart: 17-38-0803rjihgoabkj (LOVENOX) injection 30 mgStart: 68-88-3021mayvflprgj (LOVENOX) injection 40 mgStart: 10-60-0072rfwfwr 40 mg by subcutaneous injection once daily40 mg, Subcutaneous, DAILY, First dose on 07/18/19 at 0900Start: 78-38-1939vtubkl 40 mg by subcutaneous injection once daily40 mg, Subcutaneous, DAILY, First dose on 04/22/19 at 0900ergocalciferol 1.25 mg oral capsule (7 sources)Provitamin D2 CompoundStart: 08-32-1451swzu 1 capsule by mouth every weekErgocalciferol (VITAMIN D) 11125 units CAPS Take 50,000 Units by mouth once a week 5 capsule 3 10/31/2024 ActiveStart: 10-22-2022 End: 87-90-0622azjj 70077 [IU] by mouth every week50,000 Units, Oral, WEEKLY, First dose on 08/16/24 at 1700, Until DiscontinuedStart: 08-91-6590zhxy 1 capsule by mouth every weekvitamin D (ERGOCALCIFEROL) 1.25 MG (42658 UT) CAPS capsule Take 1 capsule by mouth once a week 12 capsule 0 07/30/2022 Active escitalopram 10 mg oral tablet (8 sources)Serotonin Reuptake InhibitorStart: 08-07-2022 End: 79-40-6270pxww 1 tablet by mouth once dailyescitalopram (LEXAPRO) 10 MG tablet Indications: Depression, unspecified depression type Take 1 tablet by mouth daily 30 tablet 0 08/07/2022 ActiveStart: 97-08-0583fvam 1 tablet by mouth once dailyescitalopram (LEXAPRO) 5 MG tablet Indications: Depression, unspecified depression type take 1 tablet by mouth once daily 90 tablet 0 05/28/2022 Activeferrous sulfate 325 mg oral tablet (8 sources)Start: 41-55-8698epqy 325 mg by mouth once dfelf030 mg, oral, Daily, First dose on Sat12/31/24 at 1515, Give ferrous sulfate 2 hours before or 4 gracie rs after antacids.Start: 17-30-3246salb 1 tablet by mouth once daily at breakfastferrous sulfate (IRON 325) 325 (65 Fe) MG tablet Take 1 tablet by mouth daily (with breakfast) 08/18/2024 ActiveStart: 75-76-7975evjv 1 tablet by mouth once daily at breakfastferrous sulfate (IRON 325) 325 (65 Fe) MG tablet Take 1 tablet by mouth daily (with breakfast) 08/18/2024 ActiveStart: 34-36-4257tlbj 1 dose by mouth every four wevqy003 mg, Oral, DAILY WITH BREAKFAST, First dose on 08/16/24 at 1200, Until Discontinued, Separateiron & levothyroxine by 4 hours Start: 54-60-5348ixho 1 tablet by mouth once daily at breakfastFEROSUL 325 (65 Fe) MG tablet Indications: Anemia, unspecified type Take 1 tablet by mouth daily (with breakfast) 90 tablet 1 04/12/2023 Activefluconazole 150 mg oral tablet (20 sources)Azole AntifungalStart: 17-91-3312Lartvwca 150 MG Oral Tablet 04/12/2020 Provider: Vahid Nagy CNPStart: 97-07-0386Wjcidald 150 MG Oral Tablet 04/12/2020 Provider: Vahid Nagy CNPStart: 09-09-2019 End: 47-31-9490Npoemruq 150 MG Oral Tablet 09/09/2019 - 09/24/2019 Provider: Vahid Nagy CNPStart: 07-18-2019 End: 99-28-8053ejhtgrskpys (DIFLUCAN) 40 MG/ML suspension 200 mgStart: 11-26-2017 End: 55-48-3949Gvipmhnz 150 MG OR TABS 11/26/2017 - 11/26/2017 Provider:Start: 32-94-6715dryq 1 tablet by mouth onceDiflucan 150 mg oral tablet 11/26/2017 take 1 tablet (150 mg) by oral route once for symptoms of yeast infection while on sawlvokaoe415 actuat fluticasone propionate 0.044 mg/actuat metered dose inhaler (20 sources)CorticosteroidStart: 07-23-4402lcto 2 puff(s) by inhalation twice dailyFLOVENT HFA 44 MCG/ACT inhaler Inhale 2 puffs into the lungs 2 times daily 1 each 5 12/18/2022 ActiveStart: 69-98-1018bwep 1 puff(s) by inhalation once dailyfluticasone (ARNUITY ELLIPTA) 100 MCG/ACT AEPB Inhale 1 puff into the lungs daily 30 each 3 11/30/2021 ActiveStart: 01-77-8519Yzssqvc Allergy Relief 50 MCG/ACT Nasal Suspension 08/04/2019 Provider: Vahid Nagy CNPfluticasone / salmeterol (2 sources)Corticosteroid, beta2-Adrenergic Agonisttake 1 puff(s) by inhalation in the morningfluticasone propion-salmeteroL (ADVAIR) 250-50 mcg/dose DISKUS Inhale 1 puff in the morning and 1 puff before bedtime. Activetake 1 puff(s) by inhalation in the morningfluticasone propion-salmeteroL (ADVAIR) 250-50 mcg/dose DISKUS Inhale 1 puff in the morning and 1 puff before bedtime.14 actuat fluticasone furoate 0.1 mg/actuat / vilanterol 0.025 mg/actuat dry powder inhaler (1 source)Corticosteroid, beta2-Adrenergic AgonistStart: 06-07-4205vvno 1 puff(s) by inhalation once daily1 puff, inhalation, Daily, First dose on Sat12/31/24 at 7959lcblxtobbyg-xejqufbpb-unvkds (TRELEGY ELLIPTA) 200-62.5-25 MCG/ACT AEPB inhaler (1 source)Start: 23-88-4991kiip 1 puff(s) by inhalation once daily hrweutlnrri-bcejfjxfx-wjazfo (TRELEGY ELLIPTA) 200-62.5-25 MCG/ACT AEPB inhaler Indications: Chronic obstructive pulmonary disease, unspecified COPD type (HCC) Inhale 1 puff into the lungs daily 1 each 4 09/13/2023 [id number] actuat formoterol fumarate 0.0048 mg/actuat / glycopyrrolate 0.009 mg/actuat metered dose inhaler (20 sources)beta2-Adrenergic AgonistStart: 05-04-2019 End: 95-69-1346zgbsvqmbzfwftm-formoterol (BEVESPI AEROSPHERE) 9-4.8 MCG/ACT AERO Indications: Chronic obstructive pulmonary disease, unspecified COPD type (HCC) Inhale 2 puffs into the lungs 2 times daily 1 Yscfeeo18 07/25/2019 Active gabapentin 400 mg oral capsule (20 sources)Anti-epileptic AgentStart: 19-29-6323iziq 800 mg by mouth three times kmoxv947 mg, oral, 3 times daily, First dose on Sat12/30/24 at 2215, Look-alike/sound-alike medication -verify indication for use.Start: 09-03-2024 End: 40-24-4445infa 1 tablet by mouth three times dailygabapentin (NEURONTIN) 800 MG tablet Indications: Chronic diastolic congestive heart failure (HCC) , COPD with acute exacerbation (HCC) Take 1 tablet by mouth 3 times daily for 90 days. 270 tablet 09/03/2024 12/02/2024 ActiveStart: 35-55-4559japw 600 mg by mouth three times imjeg521 mg, Oral, 3 TIMES DAILY, First dose (after last modification) on Sat08/13/24 at 1400, Until DiscontinuedStart: 08-12-2024 End: 11-63-7101dqry 800 mg by mouth three times mg, Oral, 3 TIMES DAILY, First dose on Sat08/12/24 at 1545, Until DiscontinuedStart: 08-07-2024 take 600 mg by mouth three times mg, Oral, 3 TIMES DAILY, First dose (after last modification) on Sat08/07/24 at 1400, Until DiscontinuedStart: 08-07-2024 End: 44-45-4664wwzz 300 mg by mouth three times jfwby609 mg, Oral, 3 TIMES DAILY, First dose (after last modification) on Sat08/07/24 at 0900, Until Disco ntinuedStart: 08-06-2024 End: 54-77-4246rkcb 800 mg by mouth three times mg, Oral, 3 TIMES DAILY, First dose on Sat08/06/24 at 1515, Until DiscontinuedStart: 04-30-2024 End: 79-33-9892xyar 1 tablet by mouth three times dailygabapentin (NEURONTIN) 800 MG tablet Indications: Chronic diastolic congestive heart failure (HCC) , COPD with acute exacerbation (HCC) Take 1 tablet by mouth 3 times daily for 90 days. 270 tablet 04/30/2024 ActiveStart: 85-53-3995orhb 300 mg by mouth three times dailyGabapentin Active 300 MG PO Three times daily January 23, 2024 12:00amStart: 01-19-2024 End: 54-03-5626abjl 800 mg by mouth four times dailyGabapentin Discontinued 800 MG PO Four times daily January 19, 2024 12:00am January 23, 2024 3:47pm Start: 10-21-2023 End: 53-88-2713drrz 1 tablet by mouth once daily at bedtimegabapentin (NEURONTIN) 800 MG tablet Indications: Chronic right hip pain , Lumbar back pain with radiculopathy affecting right lower extremity , Chronic left hip pain , Chronic pain syndrome , Sacralpain take 1 tablet by mouth every morning , AT NOON , every evening and at bedtime 120 tablet 10/21/2023 11/21/2023 Active Start: 07-03-2022 End: 98-71-5585rwmq 1 tablet by mouth three times dailygabapentin (NEURONTIN) 800 MG tablet Indications: Chronic left hip pain take 1 tablet by mouth three times a day 90 tablet 0 08/02/2022 09/01/2022 ActiveStart: 66-12-4330cirj 800 mg by mouth three times tgwuj284 mg, Oral, 3 TIMES DAILY, First dose on Sat04/21/19 at 2300Start: 02-11-2019 End: 35-19-2858Nyffspscsp 600 MG Oral Tablet 07/09/2019 Provider: Vahid Nagy CNPStart: 06-27-2018 End: 70-61-4933Pwxhrnoawq 600MG Oral Tablet 09/29/2018 - 01/22/2019 Provider: Vahid Nagy CNPStart: 04-26-2018 End: 11-37-3119Xsjfjfhmue 600 MG OR TABS 04/26/2018 - 04/26/2018 Provider: Conversion ProviderStart: 04-03-2018 End: 22-18-1670Lmyeaaveqf 800MG OR TABS 04/03/2018 - 04/03/2018 Provider:Start: 08-09-2017 End: 53-43-5075Fiivzrbfqm 800MG OR TABS 08/09/2017 - 08/09/2017 Provider:Start: 01-15-2017 End: 94-88-2201Kcjusvfprm 800MG Oral Tablet 04/29/2018 - 06/27/2018 Provider: Start: 12-14-2016 End: 70-52-0727Qgyudvndrn 600 MG OR TABS 12/14/2016 - 12/14/2016 Provider:Start: 04-14-2015 End: 64-00-9064Mgcvwajzmf 600 MG OR TABS 04/14/2015 - 04/14/2015 Provider: End: 78-46-1613fbecgdguvt (NEURONTIN) 600 mg tablet Take 800 mg by mouth in the morning and 800 mg at noon and 800mg before bedtime. 12/30/2024 Discontinued glucagon (rdna) 1 mg injection (4 sources)Antihypoglycemic AgentStart: mg, intramuscular, As needed, low blood sugar, blood glucose less than 70 mg/dL and unconscious or NPO without IV access., Starting on Sat12/30/24 at 2153, If conscious and not NPO, immediately follow with meal tray or high protein (7Grams) snack if tray not available. If NPO, initiate IV 5% Dextrose/Water at 100 mL/hr and contact prescriber for additional orders. If blood glucose is not greater than 70 mg/dL after initial treatment, repeat treatment.Start: 60-66-9266hayi 1 mL intravenous route every hour1 mg, Intramuscular, PRN, Low blood sugar, Blood glucose less than 70 mg/dL and patient NOT ALERT or NPO and does not have IV access., Starting Sat03/18/20 at 1350 After administration, attempt intravenous access and start D5W at 100 mL/hr. Repeat blood glucose in 15 minutes x2 and notify provider.Start: 35-76-8094qgvimopo (rDNA) injection 1 mgStart: 04-24-2019 glucagon (rDNA) injection 1 mg150 ml glucose 50 mg/ml injection (13 sources)Start: g, oral, As needed, low blood sugar, blood glucose less than 70 mg/dL, Starting on Sat12/30/24 at 2153, If patient conscious and taking PO. If blood glucose is not greater than 70 mg/dL after initial treatment, repeat treatment.Start: 29-13-827642 mL, intravenous, As needed, low blood sugar, blood glucose less than 70 mg/dL and unconscious orNPO with IV access, Starting on Sat12/30/24 at 2153, Push over 1-3 minutes STAT. If conscious and not NPO, immediately follow with meal tray or high protein (7 grams) snack if tray not available. If NPO, initiate 5% dextrose in water at 100 mL/hr and contact prescriber for additional orders. If blood glucose is not greater than 70 mg/dL after initial treatment, repeat treatment. VESICANT (RED) Warning: HYPERTONIC solution.Start: 12-30-2024 End: 71-83-6421ovjm 70 mg intravenously every xnqh904 mL/hr, intravenous, Continuous PRN, blood glucose less than 70 mg/dL, Starting on Sat12/30/24 at 2153, For 365 days, Use immediately following dextrose 50% or glucagon treatment for patients who are unconscious or NPO. Contact prescriber for additional orders. If blood glucose is not greater than 70 mg/dL after initial treatment, repeat treatment.Start: 07-19-2021 End: 16-05-7190muyfbihs 50% injection 12.5 gStart: 07-38-531849 g, Oral, PRN, Low blood sugar, Starting Sat03/18/20 at 1350 If blood glucose less than 50 mg/dLand patient ALERT and TOLERATING PO, give 2 tubes glucose gel. If blood glucose less than 70 mg/dL and patient ALERT and TOLERATING PO, give 1 tube glucose gel. Repeat blood glucosein 15 minutes. If blood glucose is less than 70 mg/dL, repeat treatment and recheck blood glucose in 15 minutes x2 and notify provider.Start: 18-42-562501.5 g, Intravenous, PRN, Low blood sugar, Blood glucose less than 70 mg/dL and patient NOT ALERT or NPO., Starting Sat03/18/20 at 1350 If patient does not respond within 5 minutes, repeat dose x1. S tart D5W at 100 mL/hour until ordering provider can be reached. Repeat blood glucose in 15 minutes.If blood glucose is less than 70 mg/dL, repeat treatment and recheck blood glucose in 15 minutes x2. If using Glucostabilizer, dose as instructed per system.Start: 92-27-2896383 mL/hr, Intravenous, at 100 mL/hr, PRN, Low blood sugar, Starting Sat03/18/20 at 1350 Start infusion following administration of dextrose 50% or glucagon.Start: 06-65-8231ahcvbhzj 5 % solutionStart: 37-68-4427ilhqkyy (GLUTOSE) 40 % oral gel 15 gStart: 07-18-2019 dextrose 50 % IV solutionStart: 67-69-3438qidwena (GLUTOSE) 40 % oral gel 15 g Start: 13-28-9553kuvbdqhs 50 % IV solutionStart: 87-20-1334zfgeaggi 5 % solution glucose monitoring (FREESTYLE FREEDOM) kit (10 sources)Start: 75-82-4055xahrbzt monitoring (FREESTYLE FREEDOM) kit Indications: Type 2 diabetes mellitus with other specified complication, without long-term current use of insulin (HCC) 1 kit by Does not apply route daily 1 kit 0 03/23/2021 Xemzmt75 hr guaiFENesin 600 mg extended release oral tablet (20 sources)Start: 01-01-2025 End: 73-61-0479wozo 1 tablet by mouth onceguaiFENesin (MUCINEX) 600 mg tablet extended release 12hr Take 1 tablet (600 mg total) by mouth every 12 (twelve) hours for 3 days. 01/01/2025 01/04/2025 ActiveStart: 28-79-6636vkfn 600 mg by mouth every twelve mg, oral, Every 12 hours scheduled, First dose on Sat12/30/24 at 2200, Look-alike/sound-alike medication - verify indication for use. Do not crush or chew.Start: 01-17-2024 End: 55-65-6622lmhiZRFqzkk 1,200 mg tablet extended release 12hr Take 1,200 mg by mouth every 12 (twelve) hours. 30 each 01/17/2024 04/17/2024 Discontinued (Therapy completed)Start: 05-17-2021 End: 95-11-8786sgsh 1 tablet by mouth twice dailyguaiFENesin (MUCINEX) 600 MG extended release tablet Take 1 tablet by mouth 2 times daily 0 05/17/2021 06/22/2021 Discontinued (LIST CLEANUP)Start: 03-26-2018 End: 92-50-4466tcaf 10 mL by mouth every four hours as neededguaifenesin 100 mg/5 mL oral liquid 03/26/2018 04/15/2018 take 10 milliliters (200 mg) by oral routeevery 4 hours as needed for 10 daysStart: 03-26-2018 End: 29-14-3039DFIZFVVELGT 100 MG/5 ML [facility] [place] 03/26/2018 - 03/26/2018 Provider: Start: 03-26-2018 End: 87-48-0297GTVRNGVMMAU 100MG/5 ML [facility] [place] 03/26/2018 - 03/26/2018 Provider:1 ml hydrALAZINE hydrochloride 20 mg/ml injection (2 sources)Arteriolar VasodilatorStart: 41-40-651638 mg, Intravenous, EVERY 10 MIN PRN, High Blood Pressure, Starting Sat03/18/20 at 1350, For 2 doses For SBP greater than 150 mmHG Recovery(Cath)Start: 95-49-0863mrloYJLINHD (APRESOLINE) injection 10 mgibuprofen 800 mg oral tablet (20 sources)Nonsteroidal Anti-inflammatory DrugStart: 10-12-2024 End: 63-60-0523xadc 1 tablet by mouth three times daily at mealtimeibuprofen (ADVIL;MOTRIN) 800 MG tablet Indications: Chronic right hip pain , Lumbar back pain with radiculopathy affecting right lower extremity , Chronic left hip pain , Chronic pain syndrome , Sacral pain Take 1 tablet by mouth 3 times daily (with meals) 90 tablet 11/19/2024 12/19/2024 ActiveStart: 01-19-2024 End: 08-46-3277grhu 1 tablet by mouth three times dailyIbuprofen (Ibu) 800 mg tablet Discontinued 800 MG PO Three times daily January 19, 2024 12:00am Oc tober 2023 3:47pmStart: 18-11-7417shzhvewrn (ADVIL;MOTRIN) tablet 400 mg Start: 04-14-2019 End: 87-60-5981Qmjzrawjb 600 MG Oral Tablet 07/03/2019 Provider: Vahid Nagy CNPStart: 04-29-2018 End: 12-66-8869Fwtjlprrp 800MG Oral Tablet 06/11/2018 Provider: Vahid Nagy CNP Start: 01-08-2018 End: 23-72-2188Ssydpfbdj 800 MG OR TABS 01/08/2018 - 01/08/2018 Provider:Start: 14-11-3440dwpw 1 tablet by mouth twice daily as needed for painibuprofen 800 mg oral tablet 10/10/2017 take 1 tablet (800 mg) by oral route BID prn for pain with foodStart: 10-10-2017 End: 75-80-8410Sgjciyito 800 MG OR TABS 10/10/2017 - 10/10/2017 Provider:Start: 17-69-5946uorq 1 tablet by mouth twice daily as needed for painibuprofen 800 mg oral tablet 05/15/2017 take 1 tablet (800 mg) by oral route BID prn for pain with foodStart: 05-15-2017 End: 22-43-1060Rmxfbpbzb 800 MG OR TABS 05/15/2017 - 05/15/2017 Provider:Start: 01-07-2017 End: 09-95-8747Mphnssjcj 800 MG OR TABS 01/07/2017 - 01/07/2017 Provider: Incontinence Supplies MISC (9 sources)Start: 91-56-8942Huxqcjlbfwgt Supplies MISC Indications: Urge incontinence of urine Use as directed for yqrroxgphpzb097 each 5 10/23/2022 ActiveStart: 02-58-5283Oqpxcsyhyccw Supplies MISC Indications: Functional incontinence Use as directed for urinary incontinence. 150 each 1 03/13/2022 ActiveIncontinence Supply Disposable ([facility] INCONTINENCE PADS) MISC (4 sources)Start: 33-39-2899Gctpdwsantqh Supply Disposable ([facility] INCONTINENCE PADS) MISC Indications: Urge incontinence of urine 1 each by Does not apply route 4 times daily as needed (incontinence) 90 each 1 09/21/2022 A ctiveStart: 08-22-5262Efsnieojxsji Supply Disposable ([facility] INCONTINENCE PADS) MISC Indications: Urinary incontinence, unspecified type 1 each by Does not apply route 2 times daily 150 each 1 04/06/2021 ActiveIncontinence Supply Disposable MISC (20 sources)Start: 05-17-1790Qlzorymsvofc Supply Disposable MISC Indications: Incontinence Incontinence pads 150 per month. Please order pad that is covered by insurance plan 150 each 3 07/25/2019 SuspendedStart: 40-40-0938Khymwgptjofu Supply Disposable MISC Indications: Incontinence Incontinence pads 150 per month. Please order pad that is covered by insurance plan 150 each 3 07/25/2019 ActiveStart: 09-21-2014 End: 84-25-9654Qptwlexcdfcn Supply Disposable MISC Indications: Incontinence Incontinence pads 150 per month. Please order pad that is covered by insurance plan 150 each 3 09/21/2014 07/25/2019 Discontinued (REORDER)Start: 09-21-2014 Incontinence Supply Disposable MISC Indications: Incontinence Incontinence pads 150 per month. Please order pad that is covered by insurance plan 150 each 3 09/21/2014 Active3 ml insulin lispro 100 unt/ml pen injector (12 sources)Insulin AnalogStart: 19-09-8290khjzur 400 mg by subcutaneous injection three times daily at mealtime, then inject 2 [IU] by subcutaneous injection 15 minutes after mealtime2-10 Units, subcutaneous, 3 times daily with meals, First dose on Jenn 12/31/24 at 0800, Daytime hyperglycemia dosing. For blood glucose 151-200 mg/dL, give 2 units. For blood glucose 201-250 mg/dL, give 4 units. For blood glucose 251-300 mg/dL, give 6 units. For blood glucose 301- 350 mg/dL, give 8 units. For blood glucose 351-400 mg/dL, give 10 units. Give even if NPO or meals skipped. Do NOT givemore often then every 4 hours when NPO. Notify prescriber if blood glucose greater than 400 mg/dL. L ook-alike/sound-alike medication - verify indication for use. Prime with 2 units of insulin prior to administration. Prandial/supplemental Insulin. Pre-filled pens stable 28 days at room temperature.Insulin lispro should be administered within 15 minutes before or immediately after a meal.Start: 19-13-5790lgkkhe 400 mg by subcutaneous injection once daily, then inject 2 [IU] by subcutaneous injection 15minutes after mealtime2-8 Units, subcutaneous, Nightly, First dose on Sat12/30/24 at 2200, Bedtime hyperglycemia dosing. For blood glucose 201-250 mg/dL, give 2 units. For blood glucose 251-300 mg/dL, give 4 units. For blood glucose 301-350 mg/dL, give 6 units. For blood glucose 351-400 mg/dL, give 8 units. Give even ifNPO or meals skipped. Do NOT give more often then every 4 hours when NPO. Notify prescriber if blood glucose greater than 400 mg/dL. Look-alike/sound-alike medication - verify indication for use. Prime with 2 units of insulin prior to administration. Prandial/supplemental Insulin. Pre- filled pens stable 28 days at room temperature. Insulin lispro should be administered within 15 minutes before orimmediately after a meal.Start: -6 Units, Subcutaneous, NIGHTLY, First dose on Sat03/18/20 at 2100 If continuous tube feedings/TPN/NPO, give correction dose based on result, no reduction in dose. If eating or bolus tube feeding: Medium Dose Corrective Algorithm Glucose: Dose: If <139 No Insulin 140-199 & nbsp; 1 Unit 200-249 & amp;nbsp; 2 Units 250 -299 3 Units 300-349 & amp;nbsp; 4 Units 350-400 &n bsp; 5 Units Above 400 &nbsp ; 6 UnitsStart: 64-46-79401-12 Units, Subcutaneous, 3 TIMES DAILY WITH MEALS, First dose on Sat03/18/20 at 1700 Medium Dose Corrective Algorithm Glucose: Dose: If <139 &am p;nbsp; No Insulin 140- 199 2 Units 200-249 4 Units 250-299 6 Units 300-349 8 Units&a mp;nbsp;350-400 10 Units Above 400 12 UnitsStart: 07-18-2019 End: 48-15-2895lkjgyep lispro (HUMALOG) injection vial 0-6 UnitsStart: 32-39-6217yhrntiq lispro (HUMALOG) injection vial 0-3 Unitsiron sucrose (VENOFER) 200 mg in sodium chloride 0.9 % 100 mL IVPB (1 source)Start: 08-15-2024 End: 34-66-5366245 mg, IntraVENous, at 440 mL/hr, Administer over 15 Minutes, EVERY 24 HOURS, First dose on [facility] 08/15/24 at 1600, For 3 days, Observe for signs and symptoms of hypersensitivity and/or anaphylactic-type reactions per institutional standard during and for at least 30 minutes following the end of administration and until clinically stable.4 ml labetalol hydrochloride 5 mg/ml cartridge (2 sources)beta-Adrenergic BlockerStart: 02-22-532259 mg, Intravenous, EVERY 30 MIN PRN, High Blood Pressure, Starting Sat03/18/20 at 1350, For 2 doses For SBP greater than 150 mmHG. Hold if heart rate is less than 60. Dont use if hydralazine was used as PRN Recovery(Cath)Start: 07-18-2019 End: 40-87-0224bfllhlhon (NORMODYNE;TRANDATE) injection 10 mgammonium lactate 120 mg/ml topical lotion (4 sources)Start: 15-46-2261vixnobom lactate (LAC-HYDRIN) 12 % lotion Indications: Dry skin Apply topically as needed. 396 g 2 06/15/2024 Active lactobacillus rhamnosus gg [id number] unt oral capsule (1 source)Start: 29-06-9887xzja 1 capsule by mouth once daily at breakfast lactobacillus (CULTURELLE) capsule Take 1 capsule by mouth daily (with breakfast) 30 capsule 10/27/2024 ActivelevoFLOXacin 250 mg oral tablet (11 sources)Quinolone AntimicrobialStart: 45-75-1223lnfq 1 tablet by mouth once daily after mg, oral, Daily, First dose on Jenn 12/31/24 at 1515, Food-Drug Interaction Education Required Look-alike/sound-alike medication - verify indication for use May alter blood glucose or insulin requirements Avoid giving within 2 hours before or after antacids, or products containing zinc or iron Take on empty stomach at least 1 hour before or 2 hours after meals Enteral Feeding Instructions: Hold tube feedings for ONE hour before and TWO hours after administration Do NOT give any oral form (tablet, suspension) through j- tube, Fluoroquinolones contain FDA Black Box warnings. Due to safety concerns, avoid use in acute bacterial sinusitis, acute bacterial exacerbation of chronic bronchitis, or acute uncomplicated cystitis if possible. Use alternative treatment if available. I acknowledgethe Black Box warnings of fluoroquinolones. Start: 12-11-2024 End: 43-62-3618psiu 1 tablet by mouth in the morninglevoFLOXacin (LEVAQUIN) 750 mg tablet Take 1 tablet (750 mg total) by mouth in the morning for 28 days. 28 tablet 12/11/2024 01/08/2025 ActiveStart: 08-13-2022 End: 87-64-4976ghql 1 tablet by mouth once dailylevoFLOXacin (LEVAQUIN) 750 MG tablet Indications: Chronic obstructive pulmonary disease, unspecified COPD type (HCC) Take 1 tablet by mouth daily for 7 days 7 tablet 0 08/13/2022 08/20/2022 ActiveStart: 10-06-2019 End: 01-02-0612awph 1 tablet by mouth once dailylevoFLOXacin (LEVAQUIN) 500 MG tablet Take 1 tablet by mouth daily for 10 days 10 tablet 0 10/06/2019 10/16/2019 ActiveStart: 07-18-2019 End: 42-92-9679dwcupedyutwz (LEVAQUIN) 750 MG/150ML infusion 750 mgStart: 07-17-2019 End: 38-99-5967vhbymsiqiiea (LEVAQUIN) 500 MG/100ML infusion 500 mgStart: 04-26-2019 End: 72-46-9901tiuq 1 tablet by mouth once dailylevofloxacin (LEVAQUIN) 500 MG tablet Take 1 tablet by mouth daily for 5 days 5 tablet 0 ActiveStart: 38-40-8940811 mg, Intravenous, EVERY 24 HOURS, First dose on Sat04/22/19 at 2100, Until DiscontinuedStart: 04-21-2019 End: 68-27-1681aefyklznznlc (LEVAQUIN) 750 MG/150ML infusion 750 mglidocaine 0.05 mg/mg medicated patch (15 sources)Antiarrhythmic, Amide Local AnestheticStart: 11-19-2024 End: 83-04-8267fnrfbycaj (LIDODERM) 5 % Place 1 patch onto the skin daily for 10 days 12 hours on, 12 hours off. 10 patch 11/19/2024 11/29/2024 ActiveStart: 74-76-5077eugo 15 mL by mouth four times daily as neededlidocaine viscous hcl (XYLOCAINE) 2 % SOLN solution Take 15 mLs by mouth 4 times daily as needed Along with Diphenhydramine and antacid 07/21/2024 ActiveStart: 02-22-2021 End: 70-45-8544veucv 1 dose transdermal route once dailylidocaine (LIDODERM) 5 % Place 1 patch onto the skin daily 12 hours on, 12 hours off. 10 patch 0 03/17/2021 Discontinued (LIST CLEANUP)Start: 42-69-7351iwzfaciwe 4 % external patch 1 patchStart: 04-05-2020 End: 49-37-7423megex 1 dose transdermal route once dailylidocaine (LIDODERM) 5 % Place 1 patch onto the skin daily 12 hours on, 12 hours off. 10 patch 0 01/2021 ActiveStart: 07-22-2019 End: 09-82-1402nmebmfwyl 1 % injection 5 mLStart: 07-22-2019 End: 18-23-4138gubedggot 1 % injectionStart: 04-12-2019 End: 95-26-6540kzyow 1 dose transdermal route once dailylidocaine (LIDODERM) 5 % Place 1 patch onto the skin daily 12 hours on, 12 hours off. 30 patch 0 03/202004/26/2019 Discontinued (Stop Taking at Discharge)linezolid 600 mg oral tablet (1 source)Oxazolidinone AntibacterialStart: 11-16-2024 End: 03-71-4135htmm 1 tablet by mouth twice dailylinezolid (ZYVOX) 600 MG tablet Indications: Cellulitis, unspecified cellulitis site Take 1 tablet by mouth 2 times daily for 7 days 14 tablet 11/16/2024 11/23/2024 Activeliothyronine sodium 0.005 mg oral tablet (1 source)l-TriiodothyronineStart: 84-26-7460zygj 2 tablets by mouth once daily liothyronine (CYTOMEL) 5 MCG tablet Take 2 tablets by mouth daily 04/21/2023 Activelisinopril 40 mg oral tablet (20 sources)Angiotensin Converting Enzyme InhibitorStart: 51-71-4229zzug 1 tablet by mouth once dailylisinopril 40 MG tablet Take 1 tablet by mouth daily. 0 06/22/2021 ActiveStart: 07-26-2019 End: 26-80-3478wuyl 1 tablet by mouth once dailylisinopril (PRINIVIL;ZESTRIL) 20 MG tablet Take 1 tablet by mouth daily 30 tablet 3 07/26/2019 ActiveStart: 82-85-9012mkxm 1 tablet by mouth once dailylisinopril (PRINIVIL;ZESTRIL) 20 MG tablet Take 1 tablet by mouth daily 30 tablet 3 07/26/2019 ActiveStart: 07-24-2019 End: 11-74-4255iyzxzbueib (PRINIVIL;ZESTRIL) tablet 5 mgStart: 04-29-2018 End: 04-61-8659Bsmwqzzgmk 10 MG Oral Tablet 03/21/2020 Provider: Vahid Nagy CNPStart: 08-16-2017 End: 80-29-2287Zdgkspjigf 10MG OR TABS 08/16/2017 - 08/16/2017 Provider: LORazepam 0.5 mg oral tablet (20 sources)BenzodiazepineStart: 85-81-7157SJYzdgvob (ATIVAN) tablet 0.5 mg Start: 08-55-7807xkoq 0.5 mg by mouth every six hours as needed for anxiety0.5 mg, Oral, EVERY 6 HOURS PRN, Anxiety, Starting Jenn 07/23/19 at 0839Start: 06-17-2019 End: 89-18-9103Cmzmdp 1 MG Oral Tablet 07/09/2019 Provider: Vahid Nagy [employer] ADMIN[employer] Start: 63-42-4837rmwo 0.5 mg by mouth every six hours as needed for anxiety0.5 mg, Oral, EVERY 6 HOURS PRN, Anxiety, Starting 04/21/19 at 2231Start: 04-29-2018 End: 65-47-8627XOBcivjft 0.5MG Oral Tablet 06/27/2018 - 07/28/2018 Provider: Vahid Nagy CNPStart: 12-27-2017 End: 87-61-3197BQQdwmvjx 0.5 MG TABS 12/27/2017 - 12/27/2017 Provider:Start: 12-27-2017 End: 19-47-6153PSLlspzjo 0.5 MG TABS 12/27/2017 - 12/27/2017 Provider:Start: 11-04-2017 End: 13-38-6411UALeflaes 0.5 MG TABS 11/04/2017 - 11/04/2017 Provider:Start: 10-22-2017 End: 22-60-8682SNHclrclq 0.5 MG TABS 10/22/2017 - 10/22/2017 Provider:Start: 10-22-2017 End: 88-92-6542IBUyjxusy 0.5 MG TABS 10/22/2017 - 10/22/2017 Provider:Start: 09-11-2017 End: 76-13-3554UAMpqhnii 0.5 MG TABS 09/11/2017 - 09/11/2017 Provider:Start: 09-11-2017 End: 51-71-3147QWXqdupho 0.5 MG TABS 09/11/2017 - 09/11/2017 Provider:Start: 18-36-3904blna 1 tablet by mouth once daily as needed for anxietylorazepam 0.5 mg oral tablet 02/15/2017 take 1 tablet (0.5 mg) by oral route once daily as needed only for severe anxietyStart: 02-15-2017 End: 73-91-4987LXFyxlpwz 0.5 MG TABS 02/15/2017 - 02/15/2017 Provider:Start: 01-17-2017 End: 94-13-2956BQBoqxnga 0.5 MG TABS 01/17/2017 - 01/17/2017 Provider:losartan potassium 50 mg oral tablet (20 sources)Angiotensin 2 Receptor BlockerStart: 86-23-6832vcjt 100 mg by mouth once mg, oral, Daily, First dose on Sat12/31/24 at 0900, Look-alike/sound-alike medication - verify indication for use.Start: 08-13-2024 take 100 mg by mouth once cfzig695 mg, Oral, DAILY, First dose on Sat08/13/24 at 0900, Until DiscontinuedStart: 98-64-2461ahnj 100 mg by mouth once mg, Oral, DAILY, First dose on Sat08/07/24 at 0900, Until DiscontinuedStart: 31-56-5486xxsh 1 tablet by mouth in the morninglosartan (COZAAR) 100 mg tablet Take 1 tablet (100 mg total) by mouth in the morning. 09/06/2022 ActiveStart: 94-18-6649rufn 1 tablet by mouth once dailylosartan (COZAAR) 100 MG tablet Indications: Primary hypertension Take 1 tablet by mouth daily 90 tablet 1 05/21/2022 ActiveStart: 12-16-1478amlg 1 tablet by mouth once dailylosartan (COZAAR) 50 MG tablet Indications: Primary hypertension take 1 tablet by mouth once daily 30 tablet 0 12/25/2021 ActiveStart: 23-39-8880rgmlmhlw (COZAAR) tablet 100 mgmagic (miracle) mouthwash (1 source)Start: 98-68-5267Ywnbh Mouthwash (MIRACLE MOUTHWASH) (4 sources)Start: 58-68-1376bbod 15 mL by mouth four times daily as neededMagic Mouthwash (MIRACLE MOUTHWASH) Indications: Mouth sore Swish and swallow 15 mLs 4 times daily as needed for Irritation Shake Well; For Oral Use. Lidocaine Viscous 2%; 80mL, Diphenhydramine 12.5MG/5Ml; 80mL, ALUM & MAG HYDROXIDE-SIMETH 200-200-20 MG/5ML; 80mL. 80 mL 07/21/2024 Activemagic mouthwash 15 mL (1 source)Start: 59-41-2462cmnznnvhy hydroxide 80 mg/ml oral suspension (1 source)Start: 32-44-1960fwhr 30 mL by mouth once daily as needed for uorerodhdxvb51 mL, Oral, DAILY PRN, Constipation, Starting Sat04/21/19 at 2231 First line therapy for constipation.50 ml magnesium sulfate 40 mg/ml injection (6 sources)Start: ,000 mg, intravenous, at 25 mL/hr, Administer over 120 Minutes, As needed, Magnesium level 1.7 to 1.9 mg/dL, or Ionized Magnesium level 0.45 to 0.5 mmol/L., Starting on Sat12/30/24 at 2153, Recheck magnesium level 4 hours after infusion complete. With each magnesium result continue the replacementorders as needed.Start: ,000 mg, intravenous, at 25 mL/hr, Administer over 240 Minutes, As needed, Magnesium level 1.6 mg/dL or less, or Ionized Magnesium level 0.44 mmol/L or less, Starting on Sat12/30/24 at 2153, Recheckmagnesium level 4 hours after infusion complete. With each magnesium result continue the replacement orders as needed.Start: 98-53-9292Najnm: 76-26-6493Hkeug: 07-18-2019 End: 32-20-4815vljudkuta sulfate 1 g in dextrose 5% 100 mL IVPBStart: 07-17-2019 End: 82-25-4193nyskwlqfu sulfate 2 g in 50 mL IVPB premixmeclizine hydrochloride 12.5 mg oral tablet (20 sources)AntiemeticStart: 06-15-2019 End: 09-49-9156nqhsqjiak (ANTIVERT) tablet 25 mgStart: 02-20-2019 End: 74-58-5780cqtw 1 tablet by mouth three times daily as needed for dizziness meclizine (ANTIVERT) 12.5 MG tablet Take 1 tablet by mouth 3 times daily as needed for Dizziness 90tablet 0 07/25/2019 Activemelatonin 3 mg oral tablet (3 sources)Start: 97-20-4805hnba 1 tablet by mouth once daily at bedtime melatonin 10 mg tablet Take 1 tablet by mouth once daily at bedtime. Active methocarbamol 500 mg oral tablet (20 sources)Muscle RelaxantStart: 77-13-8962qtmk 750 mg by mouth four times mg, oral, 4 times daily, First dose on Sat12/31/24 at 1700, Indications: muscle spasmStart: 31-34-2392fopm 1 tablet by mouth four times daily at bedtimemethocarbamol (ROBAXIN) 750 MG tablet Indications: Chronic right hip pain , Lumbar back pain with radiculopathy affecting right lower extremity , Chronic left hip pain , Chronic pain syndrome , Sacral pain Fill when due. OARS/PMDP reviewed. take 1 tablet by mouth four times a day - MORNING, NOON, EV ENING AND BEDTIME 120 tablet 11/12/2024 ActiveStart: 70-14-4786zjrt 750 mg by mouth four times gyivu410 mg, Oral, 4 TIMES DAILY, First dose on Sat08/12/24 at 1700, Until DiscontinuedStart: 50-51-6163ggac 750 mg by mouth four times daily 750 mg, Oral, 4 TIMES DAILY, First dose on Jenn 25 at 1700, Until DiscontinuedStart: 84-53-1572bhts 1 tablet by mouth four times daily at bedtime methocarbamol (ROBAXIN) 750 MG tablet Indications: Chronic right hip pain , Lumbar back pain with radiculopathy affecting right lower extremity , Chronic left hip pain , Chronic pain syndrome , Sacral pain Fill when due. OARS/PMDP reviewed. take 1 tablet by mouth four times a day - MORNING, NOON, EVENING AND BEDTIME 120 tablet 07/27/2024 ActiveStart: 04-94-5615amaw 1 tablet by mouth four times daily at bedtimemethocarbamol (ROBAXIN) 750 MG tablet Indications: Chronic right hip pain , Lumbar back pain with radiculopathy affecting right lower extremity , Chronic left hip pain , Chronic pain syndrome , Sacral pain take 1 tablet by mouth four times a day - MORNING, NOON, EVENING AND BEDTIME 120 tablet 10/23/2023 ActiveStart: 03-48-1691ufut 1 tablet by mouth four times dailymethocarbamol (ROBAXIN) 750 MG tablet Indications: Chronic right hip pain , Sacral pain , Lumbar back pain with radiculopathy affecting right lower extremity , Chronic left hip pain , Chronic pain syndrome Take 1 tablet by mouth 4 times daily 120 tablet 0 08/13/2022 ActiveStart: 98-77-3932dfzg 1 tablet by mouth four times dailymethocarbamol (ROBAXIN) 750 MG tablet Indications: Chronic right hip pain , Sacral pain , Lumbar back pain with radiculopathy affecting right lower extremity , Chronic left hip pain , Chronic pain syndrome Take 1 tablet by mouth 4 times daily 120 tablet 0 07/10/2022 ActiveStart: 04-06-2021 End: 40-85-6854rcxq 1 tablet by mouth four times dailymethocarbamol (ROBAXIN- 750) 750 MG tablet Indications: Chronic right hip pain , Muscle spasm Take 1 tablet by mouth 4 times daily for 10 days 40 tablet 0 04/06/2021 04/16/2021 ActiveStart: 01-12-2021 End: 21-76-7699hxoi 1 tablet by mouth four times daily as needed for pain methocarbamol (ROBAXIN) 500 MG tablet Take 1 tablet by mouth 4 times daily as needed (Muscle pain/spasm) 40 tablet 0 01/12/2021 01/22/2021 Active methylPREDNISolone 40 mg injection (7 sources)CorticosteroidStart: 07-77-7649mpts 40 mg intravenously every eight hours40 mg, intravenous, Every 8 hours, First dose on Sat12/30/24 at 2200, May alter blood glucose or insulin requirements. Look-alike/sound-alike medication - verify indication for use.Start: 12-30-2024 End: 03-94-6386060 mg, intravenous, Once, On Sat12/30/24 at 1510, For 1 dose, May alter blood glucose or insulin requirements. Look-alike/sound-alike medication - verify indication for use.Start: 10-07-2019 End: 14-68-5956zklasyPLZJOYVwcyhy sodium (SOLU-MEDROL) injection 125 mgStart: 07-18-2019 End: 78-79-5728smwjhwWFMARMIljrjo sodium (SOLU-MEDROL) injection 40 mgStart: 04-22-2019 End: 76-94-7180793 mg, Intravenous, DAILY, First dose on Sat04/22/19 at 0900 Start: 04-21-2019 End: 10-47-8943umlmsiOGMCPATysjkc sodium (SOLU-MEDROL) injection 125 mg24 hr metoprolol succinate 25 mg extended release oral tablet (20 sources)beta-Adrenergic BlockerStart: 36-81-5247rqhf 25 mg by mouth once daily25 mg, oral, Daily, First dose on Sat12/31/24 at 0900, Look-alike/sound-alike medication - verify indication for use. Do not crush or chew.Start: 02-29-3083igvg 1 tablet by mouth once dailymetoprolol succinate (TOPROL XL) 25 MG extended release tablet Take 1 tablet by mouth daily 90 tablet 1 09/02/2024 ActiveStart: 79-29-4705olbw 25 mg by mouth once daily25 mg, Oral, DAILY, First dose on Sat08/13/24 at 0900, Until Discontinued, Do not crush or chew.Start: 04-66-1952xpvq 25 mg by mouth once dailyMetoprolol Succinate Active 25 MG PO Daily January 19, 2024 12:00amStart: 74-68-1884kxgy 1 tablet by mouth once dailymetoprolol succinate (TOPROL XL) 25 MG extended release tablet Take 1 tablet by mouth daily 90 tablet 1 11/04/2023 ActiveStart: 39-69-2600mfkh 1 tablet by mouth every twenty-four hours in the morningmetoprolol succinate XL (TOPROL XL) 25 mg 24 hr tablet Take 1 tablet (25 mg total) by mouth in the m orning. 30 tablet 2 09/27/2022 ActiveStart: 61-79-4906jgtw 1 tablet by mouth twice dailymetoprolol 25 MG tab regular release Take 1 tablet by mouth 2 times daily. 0 06/22/2021 ActiveStart: 16-64-5036hutpkfkrry tartrate (LOPRESSOR) tablet 25 mgStart: 90-28-8659womrigsyja (LOPRESSOR) injection 5 mgStart: 12-16-2019 End: 14-66-9026tnem 1 tablet by mouth twice dailymetoprolol tartrate (LOPRESSOR) 25 MG tablet Take 1 tablet by mouth 2 times daily 180 tablet 3 03/19/2020 ActiveStart: 74-83-0277wedd 1 tablet by mouth every twenty-four hoursMetoprolol Succinate ER 25 MG Oral Tablet Extended Release 24 Hour 09/24/2019 Provider: Start: 07-21-2019 End: 99-71-3091ptwdxlnqlv tartrate (LOPRESSOR) tablet 12.5 mgStart: 07-18-2019 End: 37-13-1932szyd 1 tablet by mouth twice dailymetoprolol tartrate (LOPRESSOR) 25 MG tablet Take 1 tablet by mouth 2 times daily 60 tablet 3 07/25/2019 Active Start: 04-16-2019 End: 07-43-9974ekcb 1 tablet by mouth every twenty-four hoursMetoprolol Succinate ER 100 MG Oral Tablet Extended Release 24 Hour 04/16/2019 - 09/24/2019 Provider: Vahid Nagy CNPStart: 04-29-2018 End: 65-54-3632yell 1 tablet by mouth every twenty-four hoursMetoprolol Succinate ER 100MG Oral Tablet Extended Release 24 Hour 04/29/2018 - 04/14/2019 Provider:Start: 04-26-2018 End: 54-67-6837Scbqmcctkn Tartrate 50 MG OR TABS 04/26/2018 - 04/26/2018 Provider: Conversion ProviderStart: 04-26-2018 End: 77-28-1746Soflapofrr Tartrate 25 MG OR TABS 04/26/2018 - 04/26/2018 Provider: Conversion ProviderStart: 03-17-2018 End: 54-15-2364ZBSYYNANPA SUCCINATE 100 MG [facility] [place] 03/17/2018 - 03/17/2018 Provider:Start: 03-17-2018 End: 09-73-2580CLGIWMNVRN SUCCINATE 100MG [facility] [place] 03/17/2018 - 03/17/2018 Provider: Start: 02-19-2017 End: 19-68-4438PKBLAWTHWQ SUCCINATE 100 MG [facility] [place] 02/19/2017 - 02/19/2017 Provider:Start: 02-19-2017 End: 44-57-4555WDDFBOPWKB SUCCINATE 100MG [facility] [place] 02/19/2017 - 02/19/2017 Provider: Start: 02-19-2017 End: 94-96-8212qziv 100 mg by mouth once rpqec110 mg, Oral, DAILY, First dose on Sat04/22/19 at 0900 Do not crush or chew.Start: 12-14-2016 End: 19-48-6606Yxinqngrle Tartrate 25 MG OR TABS 12/14/2016 - 12/14/2016 Provider:Start: 12-14-2016 End: 63-69-4028Pukrbhtcnr Tartrate 25 MG OR TABS 12/14/2016 - 12/14/2016 Provider:Start: 04-14-2015 End: 35-02-2947Rlehaywpne Tartrate 25 MG OR TABS 04/14/2015 - 04/14/2015 Provider:miconazole nitrate 0.02 mg/mg topical powder (1 source)Azole AntifungalStart: 78-98-1162qltxbbgqjr (MICOTIN) 2 % powder midodrine hydrochloride 5 mg oral tablet (3 sources)alpha-Adrenergic AgonistStart: 28-07-2496xhpjqtjul (PROAMATINE) 5 MG tablet 08/19/2024 ActiveStart: 39-23-2159xvhh 1 tablet by mouth three times daily at mealtimemidodrine (PROAMATINE) 5 MG tablet Take 1 tablet by mouth 3 times daily (with meals) 90 tablet 3 05/17/2021 ActiveMultiple Vitamin (MULTIVITAMIN) TABS tablet (1 source)Start: 88-44-9225knkq 1 tablet by mouth once dailyMultiple Vitamin (MULTIVITAMIN) TABS tablet Take 1 tablet by mouth daily 30 tablet 2 10/27/2024 Activemupirocin 0.02 mg/mg topical ointment (17 sources)RNA Synthetase Inhibitor AntibacterialStart: 79-72-1585Fxadjxoad 2% External Ointment 04/12/2020 Provider: Vahid Nagy CNPStart: 04-12-2020 Mupirocin 2% External Ointment 04/12/2020 Provider: Vahid Nagy CNPStart: 08-06-2019 End: 41-74-2898Jrbjaevjz 2% External Ointment 08/06/2019 - 04/12/2020 Provider: Vahid Nagy CNPnaloxone (NARCAN) 4 mg/actuation spray,non-aerosol nasal spray (2 sources)Start: 03-58-7155sqqfmarg (NARCAN) 4 mg/actuation spray,non-aerosol nasal spray Administer 1 spray (4 mg total) intoalternating nostrils as needed for opioid reversal. 1 each 12/17/2024 ActiveStart: 57-42-3235tooqguhv (NARCAN) 4 mg/actuation spray,non-aerosol nasal spray Administer 1 spray (4 mg total) intoalternating nostrils as needed for opioid reversal. 1 each 12/17/2024 naproxen 500 mg oral tablet (2 sources)Nonsteroidal Anti-inflammatory DrugStart: 54-16-8125lkig 1 tablet by mouth twice daily as needed for painnaproxen (NAPROSYN) 500 MG tablet Take 1 tablet by mouth 2 times daily as needed for Pain 30 tablet0 07/29/2022 Smlndq47 hr nicotine 0.875 mg/hr transdermal system (20 sources)Cholinergic Nicotinic AgonistStart: 49-46-6232cekvb 1 dose transdermal route once daily1 patch, transdermal, Administer over 24 Hours, Daily, First dose on [facility] 12/31/24 at 1515, Remove patch prior to MRI procedure as serious lloyd may occur- patch may be reapplied. Remove previous patch, if present, before applying new.Start: 07-51-0394kcaqr 1 dose transdermal route once dailynicotine (NICODERM CQ) 21 MG/24HR Place 1 patch onto the skin daily 30 patch 09/08/2024 ActiveStart: 17-97-2546jpkgk 1 dose transdermal route once dailynicotine (NICODERM CQ) 21 MG/24HR Place 1 patch onto the skin daily 08/18/2024 ActiveStart: 45-19-7871sxyng 1 dose transdermal route once daily nicotine (NICODERM CQ) 21 MG/24HR Place 1 patch onto the skin daily 08/18/2024 ActiveStart: 56-26-7056dbtrb 1 dose transdermal route once daily at bedtime1 patch, TransDERmal, Administer over 24 Hours, DAILY, First dose on Sat08/12/24 at 1430, Apply newpatch to nonhairy, clean, dry skin on the upper body or upper outer arm. Rotate patch sites. Notifypharmacy if patient or provider prefers patch to be removed at bedtime and replaced in the morning.Hazardous Medication -- Refer to facility policy for handling and disposal.Start: 42-30-3258twuel 1 dose transdermal route once daily at bedtime1 patch, TransDERmal, Administer over 24 Hours, DAILY, First dose on Sat08/06/24 at 1600, Apply new patch to nonhairy, clean, dry skin on the upper body or upper outer arm. Rotate patch sites. Notify pharmacy if patient or provider prefers patch to be removed at bedtime and replaced in the morning. Hazardous Medication -- Refer to facility policy for handling and disposal.Start: 04-27-2022 End: 57-67-6929pdphz 1 dose transdermal route every twenty-four hoursnicotine 14 MG/24HR Patch [address] 1 patch on skin every 24 hours for 14 days. 14 patch 0 04/27/2022 05/11/2022 ActiveStart: 25-37-0711rsjye 1 dose transdermal route every twenty-four hoursnicotine 7 MG/24HR Patch [address] 1 patch on skin every 24 hours. 14 patch 0 04/27/2022 ActiveStart: 74-89-4038txtmozwh polacrilex 2 MG Gum Take 1 Each by mouth as needed for Smoking cessation. 40 Each 3 04/27/2022 ActiveStart: 95-00-4748wopedpzp (NICODERM CQ) 7 MG/24HR Place 1 patch onto the skin daily 30 patch 3 05/18/2021 ActiveStart: 03-17-2021 nicotine (NICODERM CQ) 21 MG/24HR 1 patchStart: 06-32-1507ofonz 1 dose transdermal route once dailynicotine (NICODERM CQ) 21 MG/24HR Place 1 patch onto the skin daily 30 patch 3 02/23/2021 ActiveStart: 64-97-7386jbsinlnd (NICODERM CQ) 14 MG/24HR 1 patchStart: 09-21-2019 End: 35-76-0995khsqrfxt (NICODERM CQ) 7 MG/24HR Indications: Tobacco abuse Place 1 patch onto the skin daily for 14 days 14 patch 0 09/21/2019 ActiveStart: 04-21-2019 End: 51-18-9214lffsasje (NICODERM CQ) 14 MG/24HR 1 patchnitroglycerin 0.4 mg sublingual tablet (20 sources)Nitrate VasodilatorStart: 95-76-2063yrkzeGEBFJFFN (NITROSTAT) 0.[address] 1 tablet under the tongue every 5 minutes as needed for Chest pain up to max of 3 total doses. If no relief after 1 dose, call 911. 25 tablet 3 02/19/2024 ActiveStart: 06-45-9308zikwhRFFYHWKM (NITROSTAT) 0.[address] 1 tablet under the tongue every 5 minutes as needed for Chest pain up to max of 3 total doses. If no relief after 1 dose, call 911. 25 tablet 3 024 ActiveStart: 62-37-9655qdkonDEFGGPMA (NITROSTAT) 0.[address] 1 tablet under the tongue as needed for Chest pain25 tablet 3 05/09/2021 Active Start: 07-17-2019 End: 74-24-6033nkemkNUWSHLYQ (NITROSTAT) 0.[address] 1 tablet under the tongue as needed for Chest pain25 tablet 3 07/25/2019 ActiveStart: 09-60-8911Rsvpmbijw 0.4MG Sublingual Tablet Sublingual 04/29/2018 Provider: Start: 04-26-2018 End: 67-11-6608Qyrenisps 0.4 MG SL SUBL 04/26/2018 - 04/26/2018 Provider: Conversion ProviderStart: 02-24-2018 End: 86-78-6496Labjmntgu 0.4MG SL SUBL 02/24/2018 - 02/24/2018 Provider:Start: 12-14-2016 End: 52-82-7406Acesoiisd 0.4MG SL SUBL 12/14/2016 - 12/14/2016 Provider:Start: 04-14-2015 End: 49-85-9536Jlhjbacdv 0.4 MG SL SUBL 04/14/2015 - 04/14/2015 Provider: Nitrostat 0.4MG Sublingual Tablet Sublingual (2 sources)Start: 18-82-4418Eappenycu 0.4MG Sublingual Tablet Sublingual 04/29/2018 Provider:Nutritional Supplements (ENSURE HIGH PROTEIN) LIQD (2 sources)Start: 06-20-2021 End: 90-86-6105gtxl 1 dose by mouth at bedtimeNutritional Supplements (ENSURE HIGH PROTEIN) LIQD Indications: Malnutrition, unspecified type (HCC) Take 1 each by mouth in the morning, at noon, and at bedtime 90 each 0 06/20/2021 07/20/2021 Activenystatin 585189 unt/ml / triamcinolone acetonide 1 mg/ml topical cream (4 sources)Polyene Antifungal, CorticosteroidStart: 77-31-5782Xvwedxuv- Triamcinolone 499754-9.1UNIT/GM-% External Cream 09/30/2018 Provider: Vahid Nagy CNPofloxacin 3 mg/ml otic solution (2 sources)Quinolone AntimicrobialStart: 80-89-0883Fwowrjicf 0.3% Otic Solution 04/12/2020 Provider: Vahid Nagy CNPStart: 64-93-4802Mcekunclz 0.3% Otic Solution 04/12/2020 Provider: Vahid Nagy CNP2 ml ondansetron 2 mg/ml injection (18 sources)Serotonin-3 Receptor AntagonistStart: 04-47-3814rcxz 4 mg intravenously every six hours as needed for nausea and vomiting4 mg, intravenous, Every 6 hours PRN, nausea, vomiting, Starting on Sat12/30/24 at 2153, Intravenous administration preferred to be given over 2-5 minutes.Start: 11-19-2024 End: mg, IntraVENous, ONCE, 1 dose, On Jenn 11/19/24 at 1315Start: 20-96-0332hvhi 1 tablet by mouth every eight hours as needed for nausea and vomitingondansetron ODT (ZOFRAN ODT) 4 mg disintegrating tablet Dissolve 1 tablet (4 mg total) on tongue every 8 (eight) hours as needed for nausea or vomiting. 02/06/2024 ActiveStart: 03-18-2021 End: 33-37-6477bqwpjcxxcxq (ZOFRAN) injection 4 mgStart: 02-09-2021 End: 71-18-9468uvsutsjwcqv (ZOFRAN) injection 4 mgStart: 01-17-2021 End: 66-38-8147shivmukijzt (ZOFRAN) injection 4 mgStart: 01-12-2021 End: 83-60-3892flnliulbnbe (ZOFRAN) injection 4 mgStart: 12-04-2020 End: 69-83-2527uozx 1 tablet by mouth every eight hours as needed for nausea ondansetron (ZOFRAN ODT) 4 MG disintegrating tablet Take 1 tablet by mouth every 8 hours as needed for Nausea or Vomiting 14 tablet 0 12/04/2020 03/17/2021 Discontinued (LIST CLEANUP)Start: mg, Intravenous, EVERY 6 HOURS PRN, Nausea, Starting Tu04/21/19 at 2231ondansetron (ZOFRAN-ODT) disintegrating tablet 4 mg (2 sources)Start: 56-94-3515pniqqrfgfrr (ZOFRAN-ODT) disintegrating tablet 4 mg Start: 58-54-7258iuwnvpiwvvj (ZOFRAN-ODT) disintegrating tablet 4 mgOxygen (20 sources)OXYGEN Inhale 2 L into the lungs 0 SuspendedOXYGEN Inhale 2 L into the lungs 0 Activepantoprazole 40 mg delayed release oral tablet (14 sources)Proton Pump InhibitorStart: 74-19-288989 mg, oral, 2 times daily before meals, First dose on Sat12/31/24 at 0700, Look-alike/sound-alike m edication - verify indication for use. If patient is receiving enteral feeding, consider alternative PPI or continue IV pantoprazole until the delayed-release tablet can be taken orally, Indication: GERDStart: 01-48-0388jsyc 1 tablet by mouth in the morning, then take 1 tablet by mouth before mealtimepantoprazole (PROTONIX) 40 mg EC tablet Take 1 tablet (40 mg total) by mouth in the morning and 1 tablet (40 mg total) in the evening. Take before meals. 60 tablet 2 01/17/2024 ActiveStart: 11-40-2590zgyn 1 tablet by mouth in the morning, then take 1 tablet by mouth before mealtimepantoprazole (PROTONIX) 40 mg EC tablet Take 1 tablet (40 mg total) by mouth in the morning and 1 tablet (40 mg total) in the evening. Take before meals. 60 tablet 2 01/17/2024 Activephenazopyridine hydrochloride 100 mg oral tablet (1 source)Start: 89-71-4786Tlwwtnlh 100 MG Oral Tablet 11/16/2019 Provider: Vahid Nagy CNPStart: 33-60-5844Dyekcsan 100 MG Oral Tablet 11/16/2019 Provider: Vahid Nagy CNPpioglitazone 45 mg oral tablet (20 sources)Peroxisome Proliferator Receptor alpha Agonist, Peroxisome Proliferator Receptor gamma Agonist, ThiazolidinedioneStart: 09-02-2024 End: 83-92-4387vjnz 1 tablet by mouth once dailypioglitazone (ACTOS) 45 MG tablet Take 1 tablet by mouth daily 90 tablet 09/02/2024 12/01/2024 ActiveStart: 90-14-6908ydum 45 mg by mouth once daily45 mg, Oral, DAILY, First dose on Jenn 08/13/24 at 0900, Until DiscontinuedStart: 58-73-6144nhst 1 tablet by mouth once dailypioglitazone (ACTOS) 15 MG tablet Indications: Type 2 diabetes mellitus with other specified complication, without long-term current use of insulin (HCC) Take 1 tablet by mouth daily 90 tablet 0 04/06/2021 ActiveStart: 05-92-6457xgwnegbkybvn (ACTOS) tablet 15 mgStart: 22-89-6323Htrqc 15 MG Oral Tablet 09/24/2019 Provider:Start: 04-14-2015 End: 12-21-1348Xzpis 15MG OR TABS 12/14/2016 - 12/14/2016 Provider:take 1 tablet by mouth once dailypioglitazone (ACTOS) 45 MG tablet Take 1 tablet by mouth daily Activepiperacillin-tazobactam (ZOSYN) 3,375 mg in dextrose 5 % 50 mL IVPB extended infusion (mini-bag) (1 source)Start: 52-48-9086xzxaciezgdzv-tazobactam (ZOSYN) 3,375 mg in dextrose 5 % 50 mL IVPB extended infusion (mini-bag)polyethylene glycol 3350 80820 mg powder for oral solution (4 sources)Osmotic LaxativeStart: 43-79-6433Rmpno: 91-73-1141Xngsw: 03-17-2020 polyethylene glycol (GLYCOLAX) packet 17 gStart: 60-41-083993 g, Oral, DAILY PRN, Constipation, Starting 07/18/19 at 0128 First line therapy for constipationpolymyxin b 18788 unt/ml / trimethoprim 1 mg/ml ophthalmic solution (20 sources)Dihydrofolate Reductase Inhibitor Antibacterial, Polymyxin-class AntibacterialStart: 09-02-2024 End: 46-61-9166pjgi 1 drop(s) into the eye(s) every four hourstrimethoprim- polymyxin b (POLYTRIM) 27365-0.1 UNIT/ML-% ophthalmic solution Place 1 drop into both eyes every 4 hours for 10 days 10 mL 09/02/2024 09/12/2024 ActiveStart: 03-03-2019 End: 31-71-7941Yfreodobw B-Trimethoprim 26543-1.1 UNIT/ML-% Ophthalmic Solution 03/03/2019 - 09/24/2019 Provider: Elena Malik CNPmicroencapsulated potassium chloride 20 meq extended release oral tablet (14 sources)Start: mEq, oral, Daily, First dose on Jenn 12/31/24 at 1115, Do not crush or chew.Start: 49-55-5754tisfsqzib chloride (K-TAB,KLOR-CON) CR tablet 30-50 mEqStart: 41-84-7472agtxbvpwf chloride (KLOR-CON M) extended release tablet 40 mEqStart: 16-37-8058tixkqojjk chloride (KLOR-CON M) extended release tablet 40 mEqStart: 02-06-2024 End: 10-05-4913ygog 1 dose by mouth in the morningpotassium chloride (KLOR-CON) 20 mEq packet Take 1 packet (20 mEq total) by mouth in the morning and 1 packet (20 mEq total) before bedtime. 02/06/2024 ActiveStart: 88-54-9605hmbj 20 mEq by mouth twice dailypotassium chloride (KLOR-CON) 20 MEQ packet Take 20 mEq by mouth 2 times daily 180 each 3 04/24/2023 ActiveStart: 07-25-2019 End: 24-68-3048crtcjmgjh chloride (KLOR-CON M) extended release tablet 40 mEq Start: 07-21-2019 End: 96-77-1787pssgmbiug chloride (KLOR-CON M) extended release tablet 40 mEq Start: 07-18-2019 End: 94-37-2472xuimrmyfj chloride 20 mEq/50 mL IVPB (Central Line)povidone- iodine 100 mg/ml topical spray (3 sources)AntisepticStart: 08-10-2024 End: 32-42-4678qtlyq 1 dose topically once dailyTopical, DAILY, First dose on Jenn 08/13/24 at 2200, To wounds of feet and toespredniSONE 20 mg oral tablet (20 sources)CorticosteroidStart: 11-19-2024 End: 15-60-7399gzzr 1 tablet by mouth twice dailypredniSONE (DELTASONE) 20 MG tablet Take 1 tablet by mouth 2 times daily for 5 days 10 tablet 11/19/2024 11/24/2024 ActiveStart: 44-16-8661roovrcBACR (DELTASONE) 10 mg tablet 40 mg for 5 days, 30 mg for 4, 20 mg for 3, 10 mg for 2, then stop 40 tablet 10/23/2022 SuspendedStart: 08-13-2022 End: 35-36-1264kwca 1 tablet by mouth twice dailypredniSONE (DELTASONE) 20 MG tablet Indications: Chronic obstructive pulmonary disease, unspecifiedCOPD type (HCC) Take 1 tablet by mouth 2 times daily for 5 days 10 tablet 0 08/13/2022 08/18/2022 ActiveStart: 03-13-2020 End: 19-58-1552pkys 1 tablet by mouth twice dailypredniSONE (DELTASONE) 20 MG tablet Take 1 tablet by mouth 2 times daily for 5 days 10 tablet 0 03/13/2020 03/19/2020 Discontinued (Stop Taking at Discharge)Start: 03-13-2020 End: 63-19-5588mbqfsxGGND (DELTASONE) tablet 40 mgStart: 35-54-9602kubeavHNEU 20 MG Oral Tablet 09/24/2019 Provider: Shawna Holliday CNPStart: 08-13-2019 End: 16-96-7232psaqrdYACA 20 MG Oral Tablet 09/09/2019 - 09/15/2019 Provider: Vahid Nagy CNPStart: 08-04-2019 End: 27-91-2656lvarewPLRU 20 MG Oral Tablet 08/04/2019 - 07/30/2019 Provider: Vahid Nagy CNPStart: 08-04-2019 End: 75-53-8538bbpyhqSZNX 20 MG Oral Tablet 08/04/2019 - 07/30/2019 Provider: Vahid Nagy CNPStart: 08-04-2019 End: 51-96-4331jrskobZEBI 20 MG Oral Tablet 08/04/2019 - 07/30/2019 Provider: Vahid Nagy CNPStart: 08-04-2019 End: 47-16-9336jivswjFNZP 20 MG Oral Tablet 08/04/2019 - 07/30/2019 Provider: Vahid Nagy CNPStart: 08-04-2019 End: 36-65-3902tplkupXSDP 20 MG Oral Tablet 08/04/2019 - 07/30/2019 Provider: Vahid Nagy CNPStart: 08-04-2019 End: 89-52-5243adhckoJUYF 20 MG Oral Tablet 08/04/2019 - 07/30/2019 Provider: Vahid Nagy CNPStart: 08-04-2019 End: 96-43-1661lclvuoDLDH 20 MG Oral Tablet 08/04/2019 - 07/30/2019 Provider: Vahid Nagy CNPStart: 08-04-2019 End: 87-36-3379nfexviOBPA 20 MG Oral Tablet 08/04/2019 - 07/30/2019 Provider: Vahid Nagy CNPStart: 08-04-2019 End: 78-60-7142hahvdwUDOB 20 MG Oral Tablet 08/04/2019 - 07/30/2019 Provider: Vahid Nagy CNPStart: 08-04-2019 End: 34-85-1866wwkhafRGYY 20 MG Oral Tablet 08/04/2019 - 07/30/2019 Provider: Vahid Nagy CNPStart: 08-04-2019 End: 33-23-3790jnqbynZDPL 20 MG Oral Tablet 08/04/2019 - 07/30/2019 Provider: Vahid Nagy CNPStart: 08-04-2019 End: 33-78-5991huojxgDEAS 20 MG Oral Tablet 08/04/2019 - 07/30/2019 Provider: Vahid Nagy CNPStart: 08-04-2019 End: 73-04-9433tfstktMCAM 20 MG Oral Tablet 08/04/2019 - 07/30/2019 Provider: Vahid Nagy CNPStart: 08-04-2019 End: 32-13-9480kkfjnnMZUO 20 MG Oral Tablet 08/04/2019 - 07/30/2019 Provider: Vahid Nagy CNPStart: 08-04-2019 End: 74-72-8792wujzvvHBZV 20 MG Oral Tablet 08/04/2019 - 07/30/2019 Provider: Vahid Nagy CNPStart: 07-23-2019 End: 95-01-6789khhtdeNBJU (DELTASONE) tablet 40 mgStart: 06-17-2019 End: 39-93-9894heywydXNVB 20 MG Oral Tablet 06/17/2019 - 07/30/2019 Provider: Vahid Nagy CNPStart: 40-56-3160fmvjhdLKLP 20 MG Oral Tablet 03/20/2019 Provider: Vahid Nagy CNPStart: 25-46-6647sxqtmbVRPO 20 MG Oral Tablet 03/20/2019 Provider: Vahid Nagy CNPStart: 10-30-2018 End: 40-31-5726vbazdcWGTI 20 MG Oral Tablet 12/11/2018 Provider: Vahid Nagy CNPStart: 02-27-2018 End: 69-94-8302lkdrpcKZFO 20 MG OR TABS 02/27/2018 - 02/27/2018 Provider:Start: 08-09-2017 End: 10-45-5077omuwpzLEEK 20MG OR TABS 08/09/2017 - 08/09/2017 Provider:take 1 tablet by mouth in the morningpredniSONE (DELTASONE) 10 mg tablet Take 1 tablet (10 mg total) by mouth in the morning. ActiveProAir HFA 108 (90 Base)MCG/ACT Inhalation Aerosol Solution (2 sources)Start: 81-89-7396TfhRmc HFA 108 (90 Base)MCG/ACT Inhalation Aerosol Solution 04/29/2018 Provider:Promethazine (2 sources)PhenothiazineStart: 86-78-4222qkwzkxbrfabu (PHENERGAN) tablet 12.5 mg Start: 60-02-8262nigyeoisnkpd (PHENERGAN) tablet 12.5 mgPulse Oximeter For Finger Miscellaneous (15 sources)Start: 24-11-1232Yqjnc Oximeter For Finger Miscellaneous 07/30/2019 Provider: Vahid Angelita CNPPulse Oximeter For Finger Miscellaneous (1 source)Start: 34-45-4118Vteqh Oximeter For Finger Miscellaneous 07/30/2019 Provider: Vahid Nagy CNPQUEtiapine 25 mg oral tablet (10 sources)Atypical AntipsychoticStart: 12-11-2595bxsc 25 mg by mouth once daily25 mg, oral, Nightly, First dose on Sat12/30/24 at 2215, Look-alike/sound-alike medication - verifyindication for use.Start: 03-29-2024 End: 67-70-3647qdgy 1 tablet by mouth once daily for anxietyQUEtiapine (SEROquel) 25 mg tablet Take 1 tablet (25 mg total) by mouth nightly. For anxiety 03/29/2024 ActiveStart: 01-19-2024 End: 43-05-0196xbos 1 tablet by mouth once dailyQuetiapine (Seroquel) 25 mg tablet Discontinued 25 MG PO Daily January 19, 2024 12:00am January 23, 2024 3:47pmStart: 42-64-1395hjin 1 tablet by mouth at bedtimeQUEtiapine (SEROQUEL) 25 MG tablet Take 1 tablet by mouth at bedtime 30 tablet 10/18/2023 ActiveQvar RediHaler 80MCG/ACT Inhalation Aerosol Breath Activated (2 sources)Start: 48-12-9113Nzgu RediHaler 80MCG/ACT Inhalation Aerosol Breath Activated 04/29/2018 Provider:rosuvastatin calcium 10 mg oral tablet (1 source)HMG-CoA Reductase InhibitorStart: 70-44-6113mlcn 5 mg by mouth once daily5 mg, oral, Nightly, First dose on Sat12/31/24 at 2200, Look-alike/sound-alike medication - verify indication for use.sertraline 50 mg oral tablet (20 sources)Serotonin Reuptake InhibitorStart: 29-80-8644zmnv 1 tablet by mouth once dailysertraline (ZOLOFT) 50 MG tablet Indications: Depression, unspecified depression type Take 1 tabletby mouth daily 90 tablet 0 11/23/2021 ActiveStart: 08-26-2019 End: 47-32-2579Dyomomupad HCl 100 MG Oral Tablet 04/11/2020 Provider: Vahid Nagy CNPStart: 44-86-4722smbu 50 mg by mouth once daily50 mg, Oral, DAILY, First dose on Sat04/22/19 at 0900Start: 04-14-2019 End: 57-67-3094Udlqed 50 MG Oral Tablet 07/09/2019 - 08/26/2019 Provider: Vahid Nagy CNPStart: 04-26-2018 End: 30-53-5929QYAZKAPEAZ 100 MG [facility] [place] 04/26/2018 - 04/26/2018 Provider:Start: 04-26-2018 End: 46-35-0018FAJYYZSQSX 100MG [facility] [place] 04/26/2018 - 04/26/2018 Provider: End: 60-39-5103mejn 1 tablet by mouth once dailysertraline 100 mg oral tablet 12/14/2016 take 1 tablet (100 mg) by oral route once ongkf7664 ml sodium chloride 9 mg/ml injection (20 sources)Start: 97-46-1460aiyp 20 mL intravenously every hour as dsirxu60 mL/hr, intravenous, Continuous PRN, to maintain patency of lines, Starting on Sat12/30/24 at 2153Start: 23-69-5313vbol 25 mL intravenously every hour as iipctr62 mL, intravenous, at 100 mL/hr, Administer over 15 Minutes, As needed, line care, line care afterIVPB administration, Starting on Sat12/30/24 at 2153 Start: 50-62-855155 mL, intravenous, As needed, line care, Starting on Sat12/30/24 at 1547Start: 12-30-2024 End: 08-23-548563 mL, intravenous, Once in imaging, pre/post contrast, Starting on Sat12/30/24 at 1547, For 1 doseStart: 50-20-3550AajzpZWXfiq, at 100 mL/hr, CONTINUOUS, Starting on Sat11/19/24 at 1230Start: 47-17-812953 mL, IntraVENous, EVERY 12 HOURS SCHEDULED (2 times per day), First dose on Sat08/12/24 at 2100, U ntil DiscontinuedStart: 38-63-0662Gcyrl: 75-13-0360Zvfyv: -40 mL, IntraVENous, EVERY 12 HOURS SCHEDULED (2 times per day), First dose on Sat08/06/24 at 2100,Until Discontinued, For Line Patency: Peripheral IV = 5 mL; Midline or Central Line = 10 mL/lumen. If following IV push medication, administer flush at same rate as the IV push. Flush volume is determined by type of infusion therapy being given. For non-viscous solutions use: Peripheral IV = 5 mL Midline or Central Line = 10 mL/lumen For viscous solutions (i.e. blood components, parenteral nutrition, contrast media, or after obtaining blood sample) use: Peripheral IV = 10 mL Midline or Central Line = 20 mL/lumenStart: 08-06-2024 End: 05-89-7329RkoubRKMaxb, at 75 mL/hr, CONTINUOUS, Starting on Jenn 08/06/24 at 1515Start: -40 mL, IntraVENous, PRN, Starting on Jenn 08/06/24 at 1449, Until Discontinued, Line Care, After every IV line use, For Line Patency: Peripheral IV = 5 mL; Midline or Central Line = 10 mL/lumen. If following IV push medication, administer flush at same rate as the IV push. Flush volume is determinedby type of infusion therapy being given. For non-viscous solutions use: Peripheral IV = 5 mL Midline or Central Line = 10 mL/lumen For viscous solutions (i.e. blood components, parenteral nutrition, contrast media, or after obtaining blood sample) use: Peripheral IV = 10 mL Midline or Central Line = 20 mL/lumenStart: 03-17-2021 End: .9 % sodium chloride infusionStart: 02-09-2021 End: .9 % sodium chloride bolusStart: 01-17-2021 End: 10.9 % sodium chloride bolusStart: 12-04-2020 End: 10.9 % sodium chloride bolusStart: 44-41-569690 mL, Intravenous, EVERY 12 HOURS SCHEDULED (2 times per day), First dose on Sat03/18/20 at 2100, Recovery(Cath)Start: 97-59-3642zrsb 10 mL intravenous route once10 mL, Intravenous, PRN, Line Care, Starting Sat03/18/20 at 1350 After every IV line use Recovery(Cath)Start: 88-06-0518fpqmtb chloride flush 0.9 % injection 10 mL Start: .9 % sodium chloride infusionStart: .9 % sodium chloride infusionStart: 54-48-148752 mL, Intravenous, EVERY 12 HOURS SCHEDULED (2 times per day), First dose on 07/18/19 at 0900Start: 04-55-8662efgy 10 mL intravenous route once as zarmui78 mL, Intravenous, PRN, Line Care, After every IV line use, Starting Sat07/18/19 at 0128Start: 07-18-2019 End: .9 % sodium chloride infusionStart: 07-17-2019 End: .9 % sodium chloride bolusStart: 04-21-2019 End: 61-56-3668Ofpfujvabop, at 75 mL/hr, CONTINUOUS, Starting Tu04/21/19 at 2300Start: 04-21-2019 End: .9 % sodium chloride bolusStart: 02-23-2019 End: .9 % sodium chloride bolusStart: 01-13-2019 End: .9 % sodium chloride bolusSucralfate (Carafate) 100 mg/mL suspension (2 sources)Start: 52-76-1832xegz 1 mL by mouth every six hoursSucralfate (Carafate) 100 mg/mL suspension Active 10 ML PO Every 6 hours January 19, 2024 12:00amsulfamethoxazole 800 mg / trimethoprim 160 mg oral tablet (5 sources)Dihydrofolate Reductase Inhibitor Antibacterial, Sulfonamide AntimicrobialStart: 43-37-1886njbsddatpxixobsa-trimethoprim (BACTRIM DS;SEPTRA DS) 800-160 MG per tablet 1 tabletStart: 02-12-2020 End: 21-54-2124btlx 1 tablet by mouth twice dailysulfamethoxazole-trimethoprim (BACTRIM DS) 800-160 MG per tablet Take 1 tablet by mouth 2 times daily for 7 days 14 tablet 0 02/12/2020 02/19/2020 ActiveStart: 41-39-5123Rvojwpl DS 800-160 MG Oral Tablet 12/11/2018 Provider: Vahid Nagy CNPsuvorexant 5 mg oral tablet (1 source)Orexin Receptor AntagonistStart: 11-16-2024 End: 84-35-3177vyve 1 tablet by mouth once daily at bedtimeSuvorexant (BELSOMRA) 5 MG TABS Indications: Insomnia, unspecified type Take 1 tablet by mouth at be dtico for 30 days. Max Daily Amount: 5 mg 30 tablet 11/16/2024 12/16/2024 Active levothyroxine sodium 0.075 mg oral tablet (20 sources)l-ThyroxineStart: 15-37-0127uaim 150 ug by mouth before duwnfjnqh360 mcg, oral, Before breakfast, First dose on Jenn 12/31/24 at 0700, Look-alike/sound-alike medication. Verify indication for use Administer on empty stomach at least ONE hour before or TWO hours after food Enteral Feeding: For 7 days or less of tube feeding- do NOT hold tube feedings, after 7 days-hold tube feedings ONE hour before and ONE hour after administration DOES NOT APPLY TO NEONATESMonitor thyroid function tests weeklyStart: 01-11-3180bavq 1 tablet by mouth once daily in the morninglevothyroxine (SYNTHROID) 150 MCG tablet Indications: Hypothyroidism, unspecified type Take 1 tablet by mouth every morning 90 tablet 1 06/24/2024 ActiveStart: 78-89-1545rsxc 1 tablet by mouth once dailyLevothyroxine (Synthroid) 150 mcg tablet Active 150 MCG PO Daily January 19, 2024 12:00amStart: 98-85-6852mtpk 1 tablet by mouth once daily in the morninglevothyroxine (SYNTHROID) 150 MCG tablet Indications: Hypothyroidism, unspecified type Take 1 tablet by mouth every morning 90 tablet 06/10/2023 ActiveStart: 12-81-2071hxmn 1 tablet by mouth in the morninglevothyroxine (SYNTHROID) 150 MCG tablet Indications: Hypothyroidism, unspecified type Take 1 tablet by mouth in the morning. 90 tablet 1 11/13/2021 ActiveStart: 07-26-2019 End: 12-08-1729wuuuqlbyymaky (SYNTHROID) tablet 150 mcgStart: 07-26-2019 End: 16-51-9795okjw 1 tablet by mouth once dailylevothyroxine (SYNTHROID) 150 MCG tablet Take 1 tablet by mouth daily 30 tablet 3 07/26/2019 ActiveStart: 23-15-6332ixlm 150 ug by mouth once deliq707 mcg, Oral, DAILY, First dose on 07/18/19 at 0900 Tube feeding (TF) interaction, obtain physician order to manage, recommend holding TF for 30 minutes before and after dose.Start: 28-50-8043ugpa 1 tablet by mouth once dailylevothyroxine (SYNTHROID) 150 MCG tablet Take 1 tablet by mouth daily 30 tablet 3 07/26/2019 ActiveStart: 04-29-2018 End: 62-31-8162Ftjadnvocjrhb Sodium 112MCG Oral Tablet 08/27/2018 Provider: Vahid Nagy CNPStart: 04-26-2018 End: 49-36-5958VLVPMOLJZVAOA 150 MCG [facility] [place] 04/26/2018 - 04/26/2018 Provider: Start: 04-26-2018 End: 19-19-5037OQUJQYXRMCEGH 150MCG [facility] [place] 04/26/2018 - 04/26/2018 Provider:Start: 12-14-2016 End: 69-24-5667ULHDTQVAUWVCB 112 MCG [facility] [place] 12/14/2016 - 12/14/2016 Provider: Start: 12-14-2016 End: 06-77-7881TXRHRAXUXWDEY 112MCG [facility] [place] 12/14/2016 - 12/14/2016 Provider:Start: 37-32-5446hufz 1 tablet by mouth once dailylevothyroxine 112 mcg oral tablet 12/14/2016 take 1 tablet (112 mcg) by oral route once dailyStart: 04-14-2015 End: 12-36-8289YCMKNIGJILYBD 112 MCG [facility] [place] 04/14/2015 - 04/14/2015 Provider: Start: 04-14-2015 End: 62-90-3806IMBDYHHPETRCE 112MCG [facility] [place] 04/14/2015 - 04/14/2015 Provider:Start: 03-14-2015 End: 47-35-5944GDFLRGWTLWOVH 112 MCG MIS 03/14/2015 - 03/14/2015 Provider: Start: 03-14-2015 End: 13-60-9860LPRBISDIVMBUC 112MCG [facility] [place] 03/14/2015 - 03/14/2015 Provider: tiZANidine 4 mg oral tablet (20 sources)Central alpha-2 Adrenergic AgonistStart: 10-30-2018 End: 94-54-6336ecSASbqeqk (ZANAFLEX) tablet 4 mgStart: 04-10-2017 End: 47-12-4278Pjtqbjin 4MG OR TABS 04/10/2017 - 04/10/2017 Provider:Start: 12-14-2016 End: 13-22-7534ycpt 1 tablet by mouth every six hours as neededtiZANidine (ZANAFLEX) 4 MG tablet Take 1 tablet by mouth every 6 hours as needed (cramps) 90 tablet0 07/25/2019 ActiveStart: 12-14-2016 End: 57-29-6707Gzpqzkqa 4 MG OR TABS 12/14/2016 - 12/14/2016 Provider:traMADol hydrochloride 50 mg oral tablet (1 source)Opioid AgonistStart: 03-21-2020 End: 74-10-5217nykx 1 tablet by mouth every four hours as needed for pain, then take 1 tablet by mouth as needed for paintraMADol (ULTRAM) 50 MG tablet Indications: Sacroiliac joint pain Take 1 tablet by mouth every 4 hours as needed for Pain for up to 3 days. Intended supply: 3 days. Take lowest dose possible to manage pain 18 tablet 0 03/21/2020 03/24/2020 ActiveTrue Metrix Meter Device (20 sources)Start: 60-10-4654Jgzj Metrix Meter Device 08/12/2019 Provider: Vahid Nagy CNPStart: 05-07-2018 End: 03-03-7861Ghne Metrix Meter Device 05/07/2018 - 08/12/2019 Provider: Vahid Nagy CNPStart: 06-92-4699Yttc Metrix Meter Device 05/07/2018 Provider: Vahid Nagy CNPStart: 83-92-2372Srnq Metrix Meter Device 04/29/2018 Provider:True Metrix Meter Device (10 sources)Start: 55-70-8293Cvuh Metrix Meter Device 08/12/2019 Provider: Vahid Nagy CNPStart: 05-07-2018 End: 08-01-4231Kbus Metrix Meter Device 05/07/2018 - 08/12/2019 Provider: Vahid Nagy CNPStart: 33-00-4227Gdep Metrix Meter Device 05/07/2018 Provider: Vahid Nagy CNPStart: 22-03-6904Ovhy Metrix Meter Device 04/29/2018 Provider: varenicline 0.5 mg oral tablet (4 sources)Partial Cholinergic Nicotinic AgonistStart: 03-89-1525Ejppqzm Starting Month Jose 0.5 MG X 11 &1 MG X 42 Oral Tablet 04/29/2018 Provider:24 hr venlafaxine 75 mg extended release oral capsule (14 sources)Serotonin and Norepinephrine Reuptake InhibitorStart: 21-30-5314vdod 150 mg by mouth once mg, oral, Daily, First dose on Jenn 12/31/24 at 1515, Look-alike/sound-alike medication - verify indication for use. Do not crush or chew.Start: 83-85-2950xgjl 75 mg by mouth once daily75 mg, oral, Daily, First dose on Jenn 12/31/24 at 1515, Look-alike/sound-alike medication - verify indication for use. Do not crush or chew.Start: 66-60-5220dpwf 1 capsule by mouth every twenty-four hours in the morningvenlafaxine XR (EFFEXOR-XR) 150 mg 24 hr capsule Take 1 capsule (150 mg total) by mouth in the morning. 02/06/2024 ActiveStart: 38-21-9006mwjf 1 capsule by mouth every twenty-four hours in the morningvenlafaxine XR (EFFEXOR XR) 75 mg 24 hr capsule Take 1 capsule (75 mg total) by mouth in the morning. 02/06/2024 ActiveStart: 95-46-9919njce 1 capsule by mouth once dailyvenlafaxine (EFFEXOR XR) 150 MG extended release capsule Indications: Anxiety take 1 capsule by mouth once daily 90 capsule 09/02/2023 ActiveStart: 08-28-4975rmlp 1 capsule by mouth once dailyvenlafaxine (EFFEXOR XR) 75 MG extended release capsule Indications: Anxiety Take 1 capsule by mouth daily 90 capsule 1 06/17/2023 ActiveWalker Miscellaneous (15 sources)Start: 85-98-8199Uwdxpl Miscellaneous 07/30/2019 Provider: Vahid Goreker Miscellaneous (1 source)Start: 02-15-0667Osbetc Miscellaneous 07/30/2019 Provider: Vahid Nagy CNPzinc sulfate 220 mg oral capsule (2 sources)Start: 21-19-0724pjgw 1 capsule by mouth once dailyzinc sulfate (ZINCATE) 220 (50 Zn) MG 220 mg capsule - elemental zinc Take 1 capsule by mouth dailyfor 11 doses 10/27/2024 ActiveStart: 30-92-2035gfyi 1 capsule by mouth once dailyzinc sulfate (ZINCATE) 220 (50 Zn) MG capsule Take 1 capsule by mouth daily for 7 days 7 capsule 0 04/23/2021 Activezolpidem tartrate 10 mg oral tablet (20 sources)gamma-Aminobutyric Acid-ergic AgonistStart: 09-02-2024 End: 66-16-6835lokj 0.5 tablet by mouth once daily as needed for sleepzolpidem (AMBIEN) 10 MG tablet Indications: Insomnia, unspecified type Take 0.5 tablets by mouth nightly as needed for Sleep for up to 90 days. Max Daily Amount: 5 mg 90 tablet 11/16/2024 02/14/2025 ActiveStart: 07-27-2024 End: 55-36-2334upmc 10 mg by mouth once daily as cobcbn34 mg, Oral, NIGHTLY PRN, Starting on Sat08/12/24 at 1527, Until Discontinued, SleepStart: 26-20-7254eesm 1 tablet by mouth at bedtimezolpidem 5 MG tablet Take 5 mg by mouth at bedtime. 0 06/22/2021 ActiveStart: 60-03-7573Atcfmr 5 MG Oral Tablet 04/12/2020 Provider: Vahid Nagy CNPStart: 47-32-3917Qnlrii 5 MG Oral Tablet 04/12/2020 Provider: Vahid Nagy CNPStart: 04-29-2018 End: 19-75-2146Fliedk 5MG Oral Tablet 04/29/2018 - 06/27/2018 Provider:Start: 02-10-2018 End: 92-50-2503Euetch 5 MG OR TABS 02/10/2018 - 02/10/2018 Provider:Start: 08-06-2017 End: 64-61-5752Svenww 5MG OR TABS 08/06/2017 - 08/06/2017 Provider: Completed/Discontinued Medications MedicationDrug Class(es)DatesSig (Normalized)Sig (Original)acetaminophen 325 mg / HYDROcodone bitartrate 5 mg oral tablet (20 sources)Opioid AgonistStart: 01-20-2024 End: 43-36-2550lmbw 1 tablet by mouth three times dailyHydrocodone-Acetaminophen Discontinued 1 TAB PO Three times daily January 20, 2024 12:00am January 23, 2024 3:47pmStart: 02-09-2021 End: 50-15-9095YCDUUzbmiat-acetaminophen (NORCO) 5-325 MG per tablet 1 tablet Start: 04-12-2019 End: 82-47-4257KJYOSlfzdcw-acetaminophen (NORCO) 5-325 MG per tablet 2 tablet Start: 46-40-1326tbmzdemfgek-acetaminophen (NORCO) tablet 5-325 mg (STARTER PACK)Start: 04-26-2018 End: 84-06-7086XEOQOkerhek-Acetaminophen 5-325 MG OR TABS 04/26/2018 - 04/26/2018 Provider: Conversion ProviderStart: 50-56-3607wxob 1 tablet by mouth every four hours as neededhydrocodone-acetaminophen 5-325 mg oral tablet 10/10/2017 take 1 tablet (5/325mg) by oral route q 4 hrs prn for pain(M79.606, M54.16) for 7 days changing back to oxycodoneStart: 10-10-2017 End: 29-80-6042LPKYJfzdnbl-Acetaminophen 5-325 MG OR TABS 10/10/2017 - 10/10/2017 Provider:Start: 09-11-2017 End: 26-59-2226WACHKfjcmuv-Acetaminophen 5-325 MG OR TABS 09/11/2017 - 09/11/2017 Provider:Start: 48-30-2360demp 1 tablet by mouth every eight hours as needed for painhydrocodone-acetaminophen 5-325 mg oral tablet 09/11/2017 take 1 tablet (5/325mg) by oral route every 8 hours as needed for severe chronic lumbar pain (M79.606, M54.16) for 30 day supplyStart: 08-16-2017 End: 06-95-3510BBFVDyzrgnv-Acetaminophen 5-325 MG OR TABS 08/16/2017 - 08/16/2017 Provider:Start: 07-29-2017 End: 20-00-2651ZGFYAizajxi-Acetaminophen 5-325 MG OR TABS 07/29/2017 - 07/29/2017 Provider:[id number] 200 actuat albuterol 0.09 mg/actuat metered dose inhaler (20 sources)beta2-Adrenergic AgonistStart: 33-10-9335nrxi 2 puff(s) by inhalation three times daily2 puff, Inhalation, 3 TIMES DAILY RESP, First dose (after last modification) on Sat08/12/24 at 1630, Until Discontinued, Initiate RT Bronchodilator Protocol: Yes - Inpatient ProtocolStart: 47-86-6546kqlzjpnhg (PROVENTIL HFA;VENTOLIN HFA) 90 mcg/actuation inhaler Take 2 puffs by mouth as needed in the morning and 2 puffs as needed at noon and 2 puffs as needed in the evening and 2 puffs as neededbefore bedtime. 02/06/2024 ActiveStart: 02-06-2024 take 2 puff(s) by mouth four times daily for wheezingalbuterol sulfate HFA (PROVENTIL;VENTOLIN;PROAIR) 108 (90 Base) MCG/ACT inhaler inhale 2 puffs by mo uth and INTO THE LUNGS four times a day if needed for wheezing 8.5 g 5 02/06/2024 ActiveStart: 25-35-6327vqlf 2 puff(s) by mouth four times daily as neededalbuterol (PROVENTIL HFA;VENTOLIN HFA) 90 mcg/actuation inhaler Take 2 puffs by mouth 4 (four) times a day as needed. 02/06/2024 ActiveStart: 77-37-4632fokb 2 puff(s) by mouth four times daily for wheezingalbuterol sulfate HFA (PROVENTIL;VENTOLIN;PROAIR) 108 (90 Base) MCG/ACT inhaler inhale 2 puffs by mouth and INTO THE LUNGS four times a day if needed for wheezing 8.5 g 5 08/13/2023 ActiveStart: 40-65-2083vsha 2.5 mg by inhalation every six hours as needed for wheezing and chronic obstructive pulmonary disease and chronic obstructive pulmonary diseasealbuterol (PROVENTIL,VENTOLIN) 2.5 mg /3 mL (0.083 %) nebulizer solution Indications: Chronic obstructive pulmonary disease, unspecified COPD type ([facility]) Inhale 3 mL (2.5 mg total) by nebulizationevery 6 (six) hours as needed for wheezing. 75 mL 03/18/2024Start: 72-17-7181yuipopcfo (PROVENTIL) (2.5 MG/3ML) 0.083% nebulizer solution Take 3 mLs by nebulization every 6 hours as needed for Wheezing or Shortness of Breath 1 each 5 05/09/2021 ActiveStart: 03-17-20202.5 mg, Nebulization, EVERY 6 HOURS PRN, Wheezing, Starting Jenn 03/17/20 at 2040Start: 45-47-9979exrzrjuif (PROVENTIL) nebulizer solution 2.5 mgStart: 04-26-2019 End: 13-52-4794krklnxkua (PROVENTIL) (2.5 MG/3ML) 0.083% nebulizer solution Take 3 mLs by nebulization every 6 hours as needed for Wheezing 100 vial 0 07/25/2019 ActiveStart: 65-31-9276lxdxgswzc (PROVENTIL) nebulizer solution 0.63 mgStart: 51-20-5826idpvgbyac (PROVENTIL) nebulizer solution 2.5 mgStart: 06-09-2018 End: 61-24-7888vmyeibrdo (ACCUNEB) 0.63 MG/3ML nebulizer solution Take 3 mLs by nebulization 3 times daily 270 mL 0 06/09/2018 04/26/2019 Discontinued (Stop Taking at Discharge)Start: 04-29-2018 End: 10-27-7330Imvtzhvcm Sulfate (2.5 MG/3ML)0.083% Inhalation Nebulization solution 06/10/2018 Provider: Vahid Nagy CNPStart: 04-29-2018 End: 62-71-4364KjgBbk HFA 108 (90 Base) MCG/ACT Inhalation Aerosol Solution 04/14/2019 Provider: Vahid Nagy CNPStart: 04-29-2018 End: 94-39-2440VsyZts HFA 108 (90 Base) MCG/ACT Inhalation Aerosol Solution 04/14/2019 Provider: Vahid Nagy CNPStart: 04-26-2018 End: 31-34-4173RHCWXXQHJ SULFATE 2.5 mg /3 ML (0.0 MISC 04/26/2018 - 04/26/2018 Provider:Start: 04-26-2018 End: 21-83-0084CHYNEOVGZ SULFATE 2.5 mg/3 ML (0.0 MIS 04/26/2018 - 04/26/2018 Provider:Start: [id number] 1-2 puff(s) by inhalation every six hours as needed for wheezingProAir HFA 90 mcg/actuation inhalation HFA aerosol inhaler 09/11/2017 inhale 1 - 2 puffs (90 - 180 mcg) by inhalation route every 6 hours as needed for wheezing/ shortness of breathStart: 09-11-2017 End: [id number] HFA 90MCG/ACTUAT MISC 09/11/2017 - 09/11/2017 Provider: Start: [id number] 1-2 puff(s) by inhalation every six hours as needed for wheezingProAir HFA 90 mcg/actuation inhalation HFA aerosol inhaler 09/11/2017 inhale 1 - 2 puffs (90 - 180 mcg) by inhalation route every 6 hours as needed for wheezing/ shortness of breathStart: [id number] 1-2 puff(s) by inhalation every six hours as needed for wheezingProAir HFA 90 mcg/actuation inhalation HFA aerosol inhaler 09/11/2017 inhale 1 - 2 puffs (90 - 180 mcg) by inhalation route every 6 hours as needed for wheezing/ shortness of breathStart: 12-14-2016 End: 03-33-6615LQIGPXTNH SULFATE 2.5 mg /3 ML (0.0 [facility] [place] 12/14/2016 - 12/14/2016 Provider:Start: 12-14-2016 End: 05-09-5835GNAHSAAFO SULFATE 2.5 mg/3 ML (0.0 [facility] [place] 12/14/2016 - 12/14/2016 Provider:Start: 21-43-1264udtl 3 mL by inhalation four times daily as needed albuterol sulfate 2.5 mg /3 mL (0.083 %) inhalation solution for nebulization 12/14/2016 inhale 3 milliliters (2.5 mg) by nebulization route 4 times per day as neededStart: 09-08-2016 End: 00-10-8707ldjgwvmdg (PROVENTIL) (5 MG/ML) 0.5% nebulizer solution Take 0.5 mLs by nebulization every 6 hours as needed for Wheezing 30 vial 0 09/08/2016 04/26/2019 Discontinued (Stop Taking at Discharge)Start: 04-14-2015 End: 70-39-1501UBKCFMFLH SULFATE 2.5 mg /3 ML (0.0 MISC 04/14/2015 - 04/14/2015 Provider:Start: 04-14-2015 End: 13-31-2500RWXNWFIBQ SULFATE 2.5 mg/3 ML (0.0 MISC 04/14/2015 - 04/14/2015 Provider:take 2.5 mg by inhalation every two hours as needed for wheezing albuterol (PROVENTIL,VENTOLIN) 2.5 mg /3 mL (0.083 %) nebulizer solution Inhale 3 mL (2.5 mg total)by nebulization every 2 (two) hours as needed for wheezing. Q2hr prn via neb shortness of breath ActiveALCOHOL PREP PADS MISC (20 sources)Start: 12-14-2016 End: 51-52-4420FDJQKEM PREP PADS MISC 12/14/2016 - 12/14/2016 Provider:ALCOHOL PREP PADS MISC (10 sources)Start: 12-14-2016 End: 12-65-6488LMTRJQJ PREP PADS MISC 12/14/2016 - 12/14/2016 Provider: ALPRAZolam 0.5 mg oral tablet (20 sources)BenzodiazepineStart: 04-26-2018 End: 24-63-7723SBLFWHwzrg 0.5 MG OR TABS 04/26/2018 - 04/26/2018 Provider: Conversion Provider End: 20-77-2006kkwzinhowk 0.5 mg oral tablet 12/14/2016Aspir-81 OR TBEC (1 source)Start: 04-26-2018 End: 39-50-3889Sndas-81 OR TBEC 04/26/2018 - 04/26/2018 Provider: Conversion ProviderAspirin 81 OR TBEC (4 sources)Start: 04-26-2018 End: 99-43-0517Kvmipsl 81 OR TBEC 04/26/2018 - 04/26/2018 Provider: Conversion Provideratorvastatin 40 mg oral tablet (20 sources)HMG-CoA Reductase InhibitorStart: 02-25-2018 End: 73-85-2142Wwrmskp 40MG OR TABS 04/26/2018 - 04/26/2018 Provider: Conversion ProviderBD Thermometer Miscellaneous (18 sources)Start: 05-01-2019 End: 13-49-0454YO Thermometer Miscellaneous 05/01/2019 - 09/24/2019 Provider: Vahid Nagy CNPStart: 52-78-9795PW Thermometer Miscellaneous 05/01/2019 Provider: Vahid CASTANEDA Thermometer Miscellaneous (1 source)Start: 05-01-2019 End: 56-75-2838JV Thermometer Miscellaneous 05/01/2019 - 09/24/2019 Provider: Vahid Nagy CNPbreath-actuated 120 actuat beclomethasone dipropionate 0.08 mg/actuat metered dose inhaler (20 sources)CorticosteroidStart: 04-09-2022 End: 25-59-3303xoln 1 puff(s) by inhalation at bedtimebeclomethasone HFA (QVAR REDIHALER) 80 mcg/actuation inhaler Inhale 1 puff in the morning and at bedtime. 04/09/2022 04/17/2024 Discontinued (Therapy completed)Start: 56-86-3907afsa 1 puff(s) by inhalation in the morningbeclomethasone (QVAR REDIHALER) 80 MCG/ACT AERB inhaler Indications: Chronic obstructive pulmonary disease, unspecified COPD type (HCC) Inhale 1 puff into the lungs in the morning and 1 puff in the ev ening. 1 each 5 04/09/2022 ActiveStart: 46-80-6747luex 1 puff(s) by inhalation twice dailybeclomethasone HFA 80 MCG/ACT Aerosol, Breath Activated inhaler Inhale 1 puff 2 times daily. 0 04/09/2022 ActiveStart: 05-09-2021 End: 82-90-1871gvoj 2 puff(s) by inhalation twice dailybeclomethasone (QVAR) 80 MCG/ACT inhaler Indications: Chronic obstructive pulmonary disease, unspecified COPD type (HCC) Inhale 2 puffs into the lungs 2 times daily 1 each 5 05/09/2021 06/22/2021 Discontinued (LIST CLEANUP)Start: 35-24-4653pohc 2 puff(s) by inhalation twice dailybeclomethasone (QVAR) 80 MCG/ACT inhaler Indications: Chronic obstructive pulmonary disease, unspecified COPD type (HCC) Inhale 2 puffs into the lungs 2 times daily 1 each 5 03/23/2021 ActiveStart: 07-25-2019 End: 49-57-6037aqmi 1 puff(s) by inhalation twice dailybeclomethasone (QVAR) 80 MCG/ACT inhaler Inhale 1 puff into the lungs 2 times daily 1 Inhaler 3 07/01 ActiveStart: 04-29-2018 End: 39-26-4625Shnj RediHaler 80MCG/ACT Inhalation Aerosol Breath Activated 09/30/2018 Provider: Vahid Nagy CNPStart: 08-09-2017 End: 77-14-2199TFGF 80MCG/ACTUAT MISC 08/09/2017 - 08/09/2017 Provider:Start: 96-19-5822klyg 1 puff(s) by inhalation twice dailyQvar 80 mcg/actuation inhalation aerosol 08/09/2017 inhale 1 puff (80 mcg) by inhalation route 2 times per dayStart: 27-76-2973olnf 1 puff(s) by inhalation twice dailyQvar 80 mcg/actuation inhalation aerosol 08/09/2017 inhale 1 puff (80 mcg) by inhalation route 2 times per daytake 1 puff(s) by inhalation twice dailybeclomethasone (QVAR) 80 MCG/ACT inhaler Inhale 1 puff into the lungs 2 times daily 0 Active take 1 puff(s) by inhalation twice dailybeclomethasone (QVAR) 80 MCG/ACT inhaler Inhale 1 puff into the lungs 2 times daily 0 Activebenazepril hydrochloride 40 mg oral tablet (20 sources)Angiotensin Converting Enzyme InhibitorStart: 01-12-2021 End: 51-12-9340nyceywixgx (LOTENSIN) 40 MG tabletStart: 04-26-2018 End: 75-72-2723VJSCFKBERX 10 mg MISC 04/26/2018 - 04/26/2018 Provider:Start: 12-14-2016 End: 31-50-3369MOPRUENCNG 10 mg MISC 12/14/2016 - 12/14/2016 Provider:Start: 55-87-9998cogr 1 tablet by mouth once dailybenazepril 10 mg oral tablet 12/14/2016 take 1 tablet (10 mg) by oral route once dailyBlood Pressure Cuff (11 sources)Start: 35-99-2060Qjvkc Pressure Cuff miscellaneous misc 08/14/2017 use as directed to monitor blood pressure (Dx I10)BLOOD PRESSURE CUFF MISC (20 sources)Start: 08-14-2017 End: 62-25-6869SRLZJ PRESSURE CUFF MISC 08/14/2017 - 08/14/2017 Provider:BLOOD PRESSURE CUFF MISC (5 sources)Start: 08-14-2017 End: 25-01-6177QUUEZ PRESSURE CUFF MISC 08/14/2017 - 08/14/2017 Provider:Blood Pressure Cuff Miscellaneous (20 sources)Start: 04-29-2018 End: 68-78-7855Nzclg Pressure Cuff Miscellaneous 04/29/2018 - 09/24/2019 Provider:Start: 66-76-2819Ynjfh Pressure Cuff Miscellaneous 04/29/2018 Provider: Blood Pressure Cuff Miscellaneous (5 sources)Start: 04-29-2018 End: 66-06-9167Fbuti Pressure Cuff Miscellaneous 04/29/2018 - 09/24/2019 Provider:Start: 83-14-5444Wluqe Pressure Cuff Miscellaneous 04/29/2018 Provider: 60 actuat budesonide 0.16 mg/actuat / formoterol fumarate 0.0045 mg/actuat metered dose inhaler (13 sources)Corticosteroid, beta2-Adrenergic AgonistStart: 73-64-3439lrpi 2 puff(s) by mouth twice daily2 puff, Inhalation, 2 TIMES DAILY, First dose on Sat08/12/24 at 2100, Until Discontinued, Rinse mouth out with water (without swallowing) after every dose.Start: 09-69-6980mpbd 2 puff(s) by mouth twice daily2 puff, Inhalation, 2 TIMES DAILY RESP, First dose on Sat08/06/24 at 2000, Until Discontinued, [place] out with water (without swallowing) after every dose.Start: 64-33-4422lwhz 2 puff(s) by inhalation in the morningbudesonide- formoteroL (SYMBICORT) 160-4.5 mcg/actuation inhaler Inhale 2 puffs in the morning and 2puffs before bedtime. 02/06/2024Start: 16-83-1643vzad 2 puff(s) by inhalation in the morningbudesonide-formoteroL (SYMBICORT) 160-4.5 mcg/actuation inhaler Inhale 2 puffs in the morning and 2puffs before bedtime. 02/06/2024 SuspendedStart: 48-44-5022folx 2 puff(s) by inhalation twice dailybudesonide- formoterol (SYMBICORT) 160-4.5 MCG/ACT AERO Indications: COPD with acute exacerbation (HCC) Inhale 2 puffs into the lungs 2 times daily 10.2 g 3 02/06/2024 ActiveStart: 67-56-0307crao 2 puff(s) by inhalation in the morning budesonide-formoteroL (SYMBICORT) 160-4.5 mcg/actuation inhaler Inhale 2 puffs in the morning and 2puffs before bedtime. 02/06/2024 ActiveStart: 58-40-1738apok 2 puff(s) by inhalation twice dailybudesonide-formoterol (SYMBICORT) 160-4.5 MCG/ACT AERO Inhale 2 puffs into the lungs 2 times daily 10.2 g 3 08/13/2023 ActiveCALCIUM 600 600 mg calcium (1,500 MG) MISC (20 sources)Start: 08-16-2017 End: 40-69-9332HRRYTXZ 600 600 mg calcium (1,500 MG) MISC 08/16/2017 - 08/16/2017 Provider:CALCIUM 600 600 mg calcium (1,500 MG) MISC (1 source)Start: 08-16-2017 End: 38-15-7360SKTQQUC 600 600 mg calcium (1,500 MG) MISC 08/16/2017 - 08/16/2017 Provider:calcium carbonate 1500 mg oral tablet (17 sources)Start: 48-27-6615ljku 1 tablet by mouth twice dailyCalcium 600 600 mg calcium (1,500 mg) oral tablet 08/16/2017 take 1 tablet by oral route twice dailyCalcium Carbonate-Vit D-Min (CALCIUM 1200 PO) (2 sources)Start: 08-16-2017 End: 73-94-6052Qoxffjr Carbonate-Vit D-Min (CALCIUM 1200 PO) Take by mouth 08/16/2017 08/06/2024 Discontinued (LIST CLEANUP)Start: 52-10-1777Xzbdkzp Carbonate-Vit D-Min (CALCIUM 1200 PO) Take by mouth 08/16/2017 Activecefdinir 300 mg oral capsule (20 sources)Cephalosporin AntibacterialStart: 03-20-2019 End: 88-65-0211Dxrmqbcg 300 MG Oral Capsule 03/20/2019 - 03/20/2019 Provider: Vahid Vasqueztirizine hydrochloride 10 mg oral tablet (20 sources)Histamine-1 Receptor AntagonistStart: 08-27-2018 End: 47-51-0350RbnTNZ Allergy 10 MG Oral Tablet 12/11/2018 - 07/09/2019 Provider: Vahid Nagy CNPChantix Starting Month Box (1 source)Start: 53-28-4983Xjgsgbh Starting Month Box 0.5 mg (11)- 1 mg (42) oral tablets,dose pack 03/26/2018 take as directedCHANTIX STARTING MONTH BOX 0.5 mg (11)- 1 MG (42) MISC (20 sources)Start: 03-26-2018 End: 44-84-4659AJTFZBA STARTING MONTH BOX 0.5 mg (11)- 1 MG (42) MISC 03/26/2018 - 03/26/2018 Provider:CHANTIX STARTING MONTH BOX 0.5 mg (11)- 1 MG (42) MISC (1 source)Start: 03-26-2018 End: 14-15-4871DXAOFLF STARTING MONTH BOX 0.5 mg (11)- 1 MG (42) MISC 03/26/2018 - 03/26/2018 Provider:Chantix Starting Month Box 0.5 mg (11)- 1 mg (42) oral tablets,dose pack (1 source)Start: 85-84-9639Meiihbm Starting Month Box 0.5 mg (11)- 1 mg (42) oral tablets,dose pack 03/26/2018 take as directedCHANTIX STARTING MONTH BOX 0.5 mg (11)-1 MG (42) MISC (4 sources)Start: 03-26-2018 End: 23-05-6932JRLZGWL STARTING MONTH BOX 0.5 mg (11)-1 MG (42) MISC 03/26/2018 - 03/26/2018 Provider:CHANTIX STARTING MONTH BOX 0.5 mg (11)-1 MG (42) MISC (4 sources)Start: 03-26-2018 End: 99-69-6914ZDAWGBB STARTING MONTH BOX 0.5 mg (11)-1 MG (42) [facility] [place] 03/26/2018 - 03/26/2018 Provider:chlorhexidine gluconate 1.2 mg/ml mouthwash (6 sources)Start: 56-58-2888euox 15 mL by mouth twice daily15 mL, Mouth/Throat, 2 TIMES DAILY, First dose on Sat08/12/24 at 2100, Until Discontinued, Rinse and spit. Do not swallow.Start: 34-12-2814dnzh 15 mL by mouth twice daily15 mL, Mouth/Throat, 2 TIMES DAILY, First dose on Jenn 08/06/24 at 2100, Until Discontinued, Rinse andspit. Do not swallow.Start: 84-70-2452spvz 15 mL by mouth twice dailychlorhexidine (PERIDEX) 0.12 % solution Indications: Mouth sore swish and spit 15ml BY MOUTH TWICE DAILY 473 mL 07/22/2024 ActiveStart: 07-18-2019 End: 01-08-5130cggconwmrbdoj (PERIDEX) 0.12 % solution 15 mLchlorpheniramine maleate 4 mg oral tablet (20 sources)Histamine-1 Receptor AntagonistStart: 04-29-2018 End: 69-00-6186Dcvkf-Trimeton 4MG Oral Tablet 04/29/2018 - 04/29/2018 Provider: Start: 01-20-2018 End: 08-63-8015Vqcts-Trimeton 4MG OR TABS 01/20/2018 - 01/20/2018 Provider: cilostazol 100 mg oral tablet (20 sources)Phosphodiesterase 3 InhibitorStart: 04-26-2018 End: 87-17-4217Cbslnfzwzq 100 MG OR TABS 04/26/2018 - 04/26/2018 Provider: Conversion ProviderStart: 04-14-2015 End: 91-94-9756Yixhkwoddb 100MG OR TABS 04/14/2015 - 04/14/2015 Provider:200 ml ciprofloxacin 2 mg/ml injection (8 sources)Quinolone AntimicrobialStart: 07-19-2021 End: 60-81-9718gsvmwnhmsrfvy (CIPRO) 400 mg in dextrose 5% premix IVPBStart: 49-64-5343Wzqvm 250 MG Oral Tablet 11/16/2019 Provider: Vahid Nagy CNPStart: 07-23-2019 End: 64-22-3606ukypjvsqlgqqx (CIPRO) tablet 500 mgStart: 07-20-2019 End: 09-24-4968oeyhlbpnwejgc (CIPRO) IVPB 400 mgStart: 38-26-6767Vvgwk 250MG Oral Tablet 09/30/2018 Provider: Vahid Nagy CNPclindamycin (20 sources)Lincosamide AntibacterialStart: 09-18-2017 End: 02-55-9396SXKVEZFTRHQ HCL 300 MG MISC 09/18/2017 - 09/18/2017 Provider: Start: 09-18-2017 End: 05-95-1831OKDAZQUOCEE HCL 300MG MISC 09/18/2017 - 09/18/2017 Provider: Start: 09-18-2017 End: 26-99-8270refl 1 capsule by mouth twice dailyclindamycin HCl 300 mg oral capsule 09/18/2017 09/25/2017 take 1 capsule (300 mg) by oral route 2 times per day for 7 dayscloNIDine hydrochloride 0.1 mg oral tablet (20 sources)Central alpha-2 Adrenergic AgonistStart: 04-26-2018 End: 19-58-6369zllSUPftq HCl 0.1 MG OR TABS 04/26/2018 - 04/26/2018 Provider: Conversion ProviderStart: 04-14-2015 End: 34-31-5078sklZJJlhq HCl 0.1MG OR TABS 04/14/2015 - 04/14/2015 Provider: clopidogrel 75 mg oral tablet (20 sources)P2Y12 Platelet InhibitorStart: 01-19-2024 End: 68-81-5673bkst 1 tablet by mouth once dailyClopidogrel (Plavix) 75 mg tablet Discontinued 75 MG PO Daily January 19, 2024 12:00am January 23, 2024 3:47pmStart: 37-42-4364krkm 1 tablet by mouth in the morningclopidogreL (PLAVIX) 75 mg tablet Take 1 tablet (75 mg total) by mouth in the morning. 30 tablet 09/26/2022 SuspendedStart: 42-89-5780cejh 1 tablet by mouth once daily clopidogrel 75 MG tablet Take 75 mg by mouth daily. 0 06/22/2021 ActiveStart: 56-75-9940dwlm 1 tablet by mouth once dailyclopidogrel (PLAVIX) 75 MG tablet TAKE ONE TABLET BY MOUTH DAILY 90 tablet 3 05/31/2020 ActiveStart: 07-26-2019 End: 72-35-1184nush 1 tablet by mouth once dailyclopidogrel (PLAVIX) 75 MG tablet Take 1 tablet by mouth daily 30 tablet 3 07/26/2019 ActiveStart: 04-29-2018 End: 27-76-7339nstk 75 mg by mouth once daily75 mg, Oral, DAILY, First dose on Sat04/22/19 at 0900Start: 02-24-2018 End: 01-80-5087Ikssne 75MG OR TABS 04/26/2018 - 04/26/2018 Provider: Parker Lovelace Nicotine 14MG/24HR Transdermal Patch 24 Hour (20 sources)Start: 07-28-2018 End: 45-95-6712RHA Nicotine 14MG/24HR Transdermal Patch 24 Hour 07/28/2018 - 09/24/2019 Provider: Vahid Nagy CNPStart: 58-30-5586NYZ Nicotine 14MG/24HR Transdermal Patch 24 Hour 07/28/2018 Provider: Vahid DOMINGUEZ Nicotine 14MG/24HR Transdermal Patch 24 Hour (1 source)Start: 07-28-2018 End: 65-93-6246UGL Nicotine 14MG/24HR Transdermal Patch 24 Hour 07/28/2018 - 09/24/2019 Provider: Vahid DOMINGUEZ Nicotine 21MG/24HR Transdermal Patch 24 Hour (20 sources)Start: 06-27-2018 End: 47-97-7467VXR Nicotine 21MG/24HR Transdermal Patch 24 Hour 06/27/2018 - 07/28/2018 Provider: Vahid DOMINGUEZ Nicotine 21MG/24HR Transdermal Patch 24 Hour (2 sources)Start: 06-27-2018 End: 75-08-5801YAM Nicotine 21MG/24HR Transdermal Patch 24 Hour 06/27/2018 - 07/28/2018 Provider: Vahid Nagy CNPStart: 64-59-9849VUO Nicotine 21MG/24HR Transdermal Patch 24 Hour 06/27/2018 Provider: Vahid Campbellamethasone phosphate 10 mg/ml injectable solution (20 sources)CorticosteroidStart: 11-19-2024 End: 56 mg, IntraVENous, ONCE, On Sat11/19/24 at 1400, For 1 doseStart: 12-14-2016 End: 69-25-7925Hzuhrtshhzidr 4MG OR TABS 12/14/2016 - 12/14/2016 Provider: dextromethorphan hydrobromide 3 mg/ml / promethazine hydrochloride 1.25 mg/ml oral solution (20 sources)Phenothiazine, Uncompetitive R-rwncvc-R-aspartate Receptor Antagonist, Sigma-1 AgonistStart: 05-20-2019 End: 78-90-4024Fywfmsuteiro-DM 6.25-15 MG/5ML Oral Syrup 06/17/2019 - 07/09/2019 Provider: Vahid Nagy CNPStart: 05-01-2019 End: 16-73-3964Eeypfminkjxw-DM 6.25-15 MG/5ML Oral Syrup 05/01/2019 - 05/01/2019 Provider: Vahid Nagy CNPdiazePAM 5 mg oral tablet (1 source)BenzodiazepineStart: 06-15-2019 End: 89-83-8647ddjrbHKI (VALIUM) tablet 5 mgdiclofenac sodium 0.01 mg/mg topical gel (3 sources)Nonsteroidal Anti-inflammatory DrugStart: 03-23-2021 End: 23-80-6345ozrsbgphid sodium (VOLTAREN) 1 % GEL Indications: Chronic pain of right knee , Chronic right hip pain , Sacral pain , Lumbar back pain with radiculopathy affecting right lower extremity Apply 4 g topically 4 times daily 350 g 0 03/23/2021 06/22/2021 Discontinued (LIST CLEANUP)DULoxetine (20 sources)Serotonin and Norepinephrine Reuptake InhibitorStart: 12-14-2016 End: 61-95-6550OQPPRIRHYE 60 MG [facility] [place] 12/14/2016 - 12/14/2016 Provider:Start: 12-14-2016 End: 10-92-3680NBUZOETHOD 60MG [facility] [place] 12/14/2016 - 12/14/2016 Provider:Start: 77-39-8037ydwy 1 capsule by mouth once dailyduloxetine 60 mg oral capsule,delayed release(DR/EC) 12/14/2016 take 1 capsule (60 mg) by oral route once daily2 ml famotidine 10 mg/ml injection (4 sources)Histamine-2 Receptor AntagonistStart: 01-17-2021 End: 54-15-8560pcoygankta (PEPCID) injection 20 mgStart: 07-22-2019 End: 10-71-9163pncjfphepp (PEPCID) tablet 20 mgStart: 07-18-2019 End: 53-24-7473fgiqwxbkgo (PEPCID) injection 20 mgStart: 60-10-4097afoo 20 mg by mouth twice daily20 mg, Oral, 2 TIMES DAILY, First dose on Sat04/21/19 at 09763 ml fentaNYL 0.05 mg/ml injection (2 sources)Opioid AgonistStart: 07-20-2019 End: 87-80-1375whhhlQKB (SUBLIMAZE) injection 50 mcgStart: 07-18-2019 End: 82-24-0113hrecgKAZ (SUBLIMAZE) injection 50 mcgfentaNYL 20 mcg/mL Infusion (1 source)Start: 07-18-2019 End: 73-15-4648mnsgzOWY 20 mcg/mL Infusion2 ml furosemide 10 mg/ml injection (18 sources)Loop DiureticStart: 12-31-2024 End: 42-26-593956 mg, intravenous, Once, On [facility] 12/31/24 at 1515, For 1 dose, Look-alike/sound-alike medication - verify indication for use. IVP rate = 20 mg/minStart: 02-06-2024 End: 97-15-5658yaza 20 mg by mouth once daily20 mg, oral, Daily, First dose on [facility] 12/31/24 at 0900, Look-alike/sound-alike medication - verify indication for use.Start: 63-10-1223oszl 1 tablet by mouth once dailyfurosemide (LASIX) 20 MG tablet Indications: Primary hypertension take 1 tablet by mouth once daily90 tablet 1 10/02/2023 ActiveStart: 04-64-4528gkxy 1 tablet by mouth once daily furosemide (LASIX) 20 MG tablet Take 1 tablet by mouth daily 30 tablet 0 05/09/2021 ActiveStart: 99-14-7843wmss 1 tablet by mouth once dailyfurosemide (LASIX) 20 MG tablet Take 1 tablet by mouth daily 30 tablet 0 03/19/2021 Active Start: 30-39-3025xouapaccla (LASIX) injection 40 mgStart: 03-13-2020 End: 11-40-7220igvn 1 tablet by mouth twice dailyfurosemide (LASIX) 20 MG tablet Take 1 tablet by mouth 2 times daily 8 tablet 0 03/13/2020 03/17/2020 Discontinued (Therapy completed)Start: 07-19-2019 End: 03-98-9501qxjmisfkka (LASIX) injection 40 mgStart: 07-17-2019 End: 36-57-8305hwovvpokyj (LASIX) injection 40 mgINCONTINENCE BRIEFS 100 MISC (20 sources)Start: 01-28-2017 End: 05-43-7064TVBFMCNBBSCJ BRIEFS 100 MISC 01/28/2017 - 01/28/2017 Provider: INCONTINENCE BRIEFS 100 MISC (5 sources)Start: 01-28-2017 End: 97-51-9728WSJCDFNEUHNB BRIEFS 100 MISC 01/28/2017 - 01/28/2017 Provider: Incontinence Pads (17 sources)Start: 15-91-4999Stvhbrrkahlq Pads 08/14/2017 Use for incontinence (dx: R35.1, N30.1)Start: 04-12-2009Ipkwnfzcptdu Pads 08/14/2017 Use for incontinence (dx: R35.1, N30.1)INCONTINENCE PADS 100 MISC (20 sources)Start: 07-30-2017 End: 90-95-9111PXUAAWDISEYG PADS 100 MISC 07/30/2017 - 07/30/2017 Provider: Start: 01-28-2017 End: 19-75-4359MKZZZYEVENPI PADS 100 MISC 01/28/2017 - 01/28/2017 Provider: INCONTINENCE PADS 100 MISC (10 sources)Start: 07-30-2017 End: 77-96-8811EYMGVDGYMASM PADS 100 MISC 07/30/2017 - 07/30/2017 Provider: Start: 01-28-2017 End: 15-86-4578JTFGRJERKKXV PADS 100 MISC 01/28/2017 - 01/28/2017 Provider: INCONTINENCE PADS MISC (20 sources)Start: 08-14-2017 End: 57-13-1135UVCQBEJBVNDM PADS MISC 08/14/2017 - 08/14/2017 Provider: INCONTINENCE PADS MISC (5 sources)Start: 08-14-2017 End: 31-17-0245YCPQYXMEFOFP PADS MISC 08/14/2017 - 08/14/2017 Provider:iohexoL (OMNIPAQUE) 350 mg iodine/mL injection 100 mL (1 source)Start: 12-30-2024 End: mL, intravenous, Once in imaging, contrast, Starting on Sat12/30/24 at 1547, For 1 dose, VESICANT (RED)Iopamidol (2 sources)Radiographic Contrast AgentStart: 04-12-2019 End: 84-53-8212ojsnxxrnx (ISOVUE-370) 76 % injection 75 mLStart: 02-23-2019 End: 07-62-2797ucoqostxl (ISOVUE-370) 76 % injection 120 mLiopamidol (ISOVUE- 370) 76 % injection 100 mL (1 source)Start: 08-06-2024 End: 75-00-3107xmvn 1 dose intravenously bkbc395 mL, IntraVENous, IMG ONCE PRN, 1 dose, Starting on Jenn 08/06/24 at 1602, Until Jenn 08/06/24 at 1607, Otheriopamidol (ISOVUE-370) 76 % injection 18 mL (2 sources)Start: 01-04-2022 End: 18-04-2696bsqtlduni (ISOVUE-370) 76 % injection 18 mLStart: 06-20-2021 End: 94-05-3032ubururvfz (ISOVUE-370) 76 % injection 18 mLiopamidol (ISOVUE-370) 76 % injection 70 mL (1 source)Start: 03-17-2020 End: 04-56-1010spcctwboa (ISOVUE-370) 76 % injection 70 mLiopamidol (ISOVUE-370) 76 % injection 75 mL (7 sources)Start: 01-04-2022 End: 58-71-3027gsxpvommh (ISOVUE-370) 76 % injection 75 mLStart: 06-20-2021 End: 83-22-0430pvqhbkjsz (ISOVUE-370) 76 % injection 75 mLStart: 03-17-2021 End: 13-36-4788vkeuxzsjt (ISOVUE-370) 76 % injection 75 mLStart: 12-04-2020 End: 89-16-2635ezpjaqdoq (ISOVUE-370) 76 % injection 75 mLStart: 10-06-2019 End: 78-61-6915urxclrllg (ISOVUE-370) 76 % injection 75 mLStart: 07-17-2019 End: 82-05-6621ukxnyvasq (ISOVUE-370) 76 % injection 75 mLStart: 04-21-2019 End: 36-17-2289uruinnvvn (ISOVUE-370) 76 % injection 75 mLisopropyl alcohol 0.7 ml/ml medicated pad (17 sources)Start: 40-38-6014Pvldhil Prep Pads topical pads, medicated 12/14/2016 use for blood sugar testing TID (dx: E11.9)24 hr isosorbide mononitrate 60 mg extended release oral tablet (20 sources)Nitrate VasodilatorStart: 00-09-1676zcug 30 mg by mouth once daily30 mg, Oral, DAILY, First dose (after last modification) on Sat08/09/24 at 0900, Until Discontinued, Do not crush or chew.Start: 02-06-2024 End: 99-77-7368jldy 60 mg by mouth once daily60 mg, Oral, DAILY, First dose on Sat08/12/24 at 1545, Until Discontinued, Do not crush or chew.Start: 01-19-2024 take 60 mg by mouth once dailyIsosorbide Mononitrate Active 60 MG PO Daily January 19, 2024 12:00amStart: 12-62-7092csdk 1 tablet by mouth once daily isosorbide mononitrate (IMDUR) 60 MG extended release tablet Indications: Primary hypertension Take1 tablet by mouth daily 90 tablet 10/18/2023 Active Start: 05-04-2019 End: 10-61-3023dikg 1 tablet by mouth once dailyisosorbide mononitrate (IMDUR) 30 MG extended release tablet Take 1 tablet by mouth daily 30 tablet3 07/25/2019 Active1 ml ketorolac tromethamine 30 mg/ml cartridge (20 sources)Nonsteroidal Anti-inflammatory Drug, Cyclooxygenase InhibitorStart: 07-29-2022 End: 93-48-5699zegpkidwj (TORADOL) injection 30 mgStart: 04-72-0226Scmtizqaa Tromethamine 60 MG/2ML IM SOLN 01/12/2019 Elena Malik CNPComment on above: Patient tolerated therapy well. No signs or symptoms of adverse reactions. lancets (11 sources)Start: 97-82-4080kdxyobx 30 gauge [place] [facility] [place] use for blood sugar testing TID (dx: E11.9)loratadine 10 mg oral tablet (20 sources)Start: 12-27-2017 End: 59-47-1364Wyskdvmj 10MG OR TABS 12/27/2017 - 12/27/2017 Provider:metFORMIN hydrochloride 500 mg oral tablet (6 sources)BiguanideStart: 07-16-2024 End: 44-13-5981xyjq 500 mg by mouth twice daily at kmszafhx022 mg, Oral, 2 TIMES DAILY WITH MEALS, First dose on Sat08/12/24 at 1700, Until Discontinued1 ml morphine sulfate 4 mg/ml injection (4 sources)Opioid AgonistStart: 11-19-2024 End: 99-63-9060tvok 1 dose by mouth every hour4 mg, IntraVENous, ONCE, 1 dose, On Jenn 11/19/24 at 1315, If oral and IV narcotics ordered, use oralfirst and only use IV if oral is ineffective or cannot take oral. Do Not give oral and IV within 1 hour of each other unless specifically ordered.Start: 01-12-2021 End: 00-96-7838azhkdqvq injection 4 mgStart: 12-04-2020 End: 48-29-0605ijjzdwua injection 4 mgStart: 02-23-2019 End: 45-30-2969njuamhyv (PF) injection 2 mgmultivitamin 1 tablet (1 source)Start: 69-01-1656otao 1 tablet by mouth once daily1 tablet, Oral, DAILY, First dose on 08/15/24 at 0900, Until Discontinued1 ml naloxone hydrochloride 0.4 mg/ml injection (20 sources)Opioid AntagonistStart: 10-07-2019 End: 48-28-8959ybdayctb (NARCAN) injection 0.4 mgStart: 07-17-2019 End: 57-15-9031emzqyyen (NARCAN) injection 1 mgStart: 57-73-1449Gafllh 4MG/0.1ML Nasal Liquid 07/28/2018 Provider: Vahid Nagy CNPnitrofurantoin, macrocrystals 25 mg / nitrofurantoin, monohydrate 75 mg oral capsule (9 sources)Nitrofuran AntibacterialStart: 09-23-2019 End: 00-73-2327Exakqpom 100 MG Oral Capsule 09/23/2019 - 09/24/2019 Provider: Vahid Nagy CNPNitrostat 0.4MG SL SUBL (8 sources)Start: 04-26-2018 End: 35-26-7289Nuqrsuoss 0.4MG SL SUBL 04/26/2018 - 04/26/2018 Provider: Conversion ProviderStart: 02-24-2018 End: 39-85-3387Ctznpznow 0.4MG SL SUBL 02/24/2018 - 02/24/2018 Provider:Start: 12-14-2016 End: 53-89-3501Nqzwcsggv 0.4MG SL SUBL 12/14/2016 - 12/14/2016 Provider:Start: 04-14-2015 End: 56-23-8381Xhrpcthpu 0.4MG SL SUBL 04/14/2015 - 04/14/2015 Provider:normal saline (20 sources)Start: 08-16-2017 End: 22-32-3961ICYJUL SOLUTION MISC 08/16/2017 - 08/16/2017 Provider:Start: 28-99-2543Phcliy Solution miscellaneous solution 08/16/2017 use as directed to clean out wound prior to packingnystatin 165319 unt/ml topical cream (1 source)Polyene AntifungalStart: 02-22-2021 End: 29-07-3900rtmdwtgc (MYCOSTATIN) 862731 UNIT/GM cream Apply topically 2 times daily. 15 g 1 02/22/2021 03/17/2021 Discontinued (LIST CLEANUP)2 ml orphenadrine citrate 30 mg/ml injection (1 source)Muscle RelaxantStart: 11-19-2024 End: 80-95-221907 mg, IntraVENous, ONCE, 1 dose, On Jenn 11/19/24 at 1400oxyCODONE hydrochloride 5 mg oral tablet (3 sources)Opioid AgonistStart: 08-06-2024 End: 68-35-9279bvma 1 dose by mouth once2.5 mg, Oral, Once, 1 dose, On Jenn 08/06/24 at 2045Start: 26-97-3223awlq 1 tablet by mouth every four hours as needed for painoxyCODONE (ROXICODONE) 5 mg immediate release tablet Indications: Hypertensive emergency Take 1 tablet (5 mg total) by mouth every 4 (four) hours as needed for pain for up to 10 doses. Max Daily Amount: 30 mg 10 tablet 11/17/2022 Suspendedpenicillin v potassium 500 mg oral tablet (20 sources)Start: 11-26-2017 End: 41-86-7479Mkjrsjbger V Potassium 500MG OR TABS 11/26/2017 - 11/26/2017 Provider:Start: 10-29-2017 End: 19-17-3652Fnslbsrqbp V Potassium 500MG OR TABS 10/29/2017 - 10/29/2017 Provider:piperacillin-tazobactam (ZOSYN) 3,375 mg in dextrose 5 % 50 mL IVPB (mini-bag) (1 source)Start: 03-17-2021 End: 35-48-6937njlqinfbddwx-tazobactam (ZOSYN) 3,375 mg in dextrose 5 % 50 mL IVPB (mini-bag)piperacillin-tazobactam (ZOSYN) 3,375 mg in sodium chloride 0.9 % 50 mL IVPB (Yene8Oys) (2 sources)Start: 08-12-2024 End: ,375 mg, IntraVENous, at 100 mL/hr, Administer over 30 Minutes, ONCE, On Sat08/12/24 at 1130, For 1 dose, Use 20mm (Blue) Dokb9Leb Adapter Preparation instructions: Attach medication vial to one 20mm (Blue) Axdg3Goz adapter. Rai fluid bag with adapter, mix, and administer per order.Start: 08-06-2024 End: ,375 mg, IntraVENous, at 12.5 mL/hr, Administer over 240 Minutes, EVERY 8 HOURS, First dose on Sat08/06/24 at 2200, For 7 days, Use 20mm (Blue) Oemq2Hjn Adapter Preparation instructions: Attach medication vial to one 20mm (Blue) Mtdo6Ppe adapter. Rai fluid bag with adapter, mix, and administer per order.pravastatin sodium 20 mg oral tablet (20 sources)HMG-CoA Reductase InhibitorStart: 14-80-4636jgjn 40 mg by mouth once daily40 mg, Oral, DAILY, First dose on Sat08/12/24 at 1545, Until Discontinued Start: 82-71-4304wtcy 40 mg by mouth once daily40 mg, Oral, NIGHTLY, First dose on Sat08/06/24 at 2100, Until DiscontinuedStart: 94-91-5816ftfb 1 tablet by mouth once dailypravastatin (PRAVACHOL) 40 MG tablet Indications: Hyperlipidemia, unspecified hyperlipidemia type Take 1 tablet by mouth daily 90 tablet 1 02/06/2024 ActiveStart: 55-53-5123hjwz 1 tablet by mouth once dailypravastatin (PRAVACHOL) 40 MG tablet Indications: Hyperlipidemia, unspecified hyperlipidemia type Take 1 tablet by mouth daily 90 tablet 06/10/2023 ActiveStart: 05-09-2021 take 1 tablet by mouth once dailypravastatin (PRAVACHOL) 40 MG tablet Indications: Hyperlipidemia, unspecified hyperlipidemia type Take 1 tablet by mouth daily 90 tablet 0 11/30/2021 ActiveStart: 15-51-8263ugxr 1 tablet by mouth once dailypravastatin (PRAVACHOL) 40 MG tablet Indications: Hyperlipidemia, unspecified hyperlipidemia type Take 1 tablet by mouth daily 90 tablet 0 03/23/2021 ActiveStart: 82-61-1340buog 40 mg by mouth once daily40 mg, Oral, DAILY, First dose on Sat03/18/20 at 1430Start: 35-75-9458Tiysgjmgo 40 MG Oral Tablet 02/03/2020 Provider: Vahid Nagy CNPStart: 04-26-2018 End: 03-85-8688CDFYPLBQIVZ 40 MG MISC 04/26/2018 - 04/26/2018 Provider:Start: 04-26-2018 End: 69-96-7120NNALDWWVSLT 40MG MISC 04/26/2018 - 04/26/2018 Provider:Start: 04-14-2015 End: 66-97-9644BESIUZGAEWD 40 MG MISC 04/14/2015 - 04/14/2015 Provider:Start: 04-14-2015 End: 42-88-0148AIQWKIAZSTM 40MG MISC 04/14/2015 - 04/14/2015 Provider:Start: 04-14-2015 End: 60-97-4891fkkx 1 tablet by mouth once dailypravastatin 40 mg oral tablet 04/14/2015 12/14/2016 take 1 tablet (40 mg) by oral route once dailypregabalin 150 mg oral capsule (20 sources)Start: 01-19-2024 End: 96-75-0096uxmk 1 capsule by mouth twice dailyPregabalin (Lyrica) 150 mg capsule Discontinued 150 MG PO Twice daily January 20, 2024 12:00am January 23, 2024 3:47pmStart: 12-27-2021 End: 59-02-9692kvxr 1 capsule by mouth twice dailypregabalin (LYRICA) 150 MG capsule Indications: Chronic right hip pain , Chronic pain of right knee, Sacral pain , Lumbar back pain with radiculopathy affecting right lower extremity take 1 capsule by mouth twice a day 60 capsule 0 12/27/2021 01/26/2022 ActiveStart: 88-51-8998djyh 1 capsule by mouth twice dailypregabalin 75 MG capsule Take 1 capsule by mouth 2 times daily. 0 06/22/2021 ActiveStart: 03-23-2021 End: 27-53-2031ecvx 1 capsule by mouth twice dailypregabalin (LYRICA) 75 MG capsule Indications: Chronic pain of right knee , Chronic right hip pain , Sacral pain , Lumbar back pain with radiculopathy affecting right lower extremity Take 1 capsule by mouth 2 times daily for 30 days. 60 capsule 0 04/20/2021 ActiveStart: 89-51-8577Zxprux 75 MG Oral Capsule 04/12/2020 Provider: Start: 30-12-9737Ejaefv 75 MG Oral Capsule 04/12/2020 Provider:Start: 03-18-2020 pregabalin (LYRICA) capsule 50 mgStart: 80-54-0323srznrvbifq (LYRICA) capsule 75 mgpregabalin (LYRICA) 100 mg capsule Take 150 mg by mouth in the morning and 150 mg before bedtime. Suspended End: 64-39-5517cpkcvcatti (LYRICA) 50 MG capsule Take 30 mg by mouth 2 times daily. 0 03/17/2021 Discontinued (LIST CLEANUP)PROAIR HFA 90 MCG/ACTUAT MISC (20 sources)Start: 09-11-2017 End: 07-65-9855UJFZEO HFA 90 MCG/ACTUAT MISC 09/11/2017 - 09/11/2017 Provider: PROAIR HFA 90 MCG/ACTUAT MISC (1 source)Start: 09-11-2017 End: 89-68-7261JZVLGM HFA 90 MCG/ACTUAT MISC 09/11/2017 - 09/11/2017 Provider: 100 ml propofol 10 mg/ml injection (1 source)General AnestheticStart: 07-18-2019 End: 37-52-4410rvkfayoj injectionpt unable to verify home meds at this time (2 sources)Start: 01-19-2024 End: 80-44-7183sk unable to verify home meds at this time Discontinued January 19, 2024 12:00am January 20, 2024 4:55pmStart: 48-56-8026mu unable to verify home meds at this time Active January 19, 2024 12:00amQVAR 80 MCG/ACTUAT MISC (20 sources)Start: 08-09-2017 End: 81-66-7959UEET 80 MCG/ACTUAT MISC 08/09/2017 - 08/09/2017 Provider:QVAR 80 MCG/ACTUAT MISC (1 source)Start: 08-09-2017 End: 41-76-3753AWSB 80 MCG/ACTUAT MISC 08/09/2017 - 08/09/2017 Provider: regadenoson (LEXISCAN) injection 0.4 mg (1 source)Start: 09-16-2019 End: 79-40-8111nicbssokksf (LEXISCAN) injection 0.4 mgsimethicone in sterile water 80 mg/1000 mL irrigation 1 Application (2 sources)Start: 07-19-2021 End: 11-40-3165arfvuzxidnn in sterile water 80 mg/1000 mL irrigation 1 Applicationsucralfate 100 mg/ml oral suspension (6 sources)Aluminum ComplexStart: 12-30-2024 End: 46-98-9275owxn 1 dose by mouth every two hours1,000 mg (1 g), oral, 4 times daily before meals and nightly, First dose on Sat12/30/24 at 2315, Shake well. Administer with water on an empty stomach. To reduce the potential of adversely affecting the absorption of other drugs, administer other drugs 2 hours prior to sucralfate DO NOT give with enteral feedings- consider alternative agents: PPI or H2 receptor antagonisttake 10 mL by mouth four times daily at mealtime sucralfate (CARAFATE) 100 mg/mL suspension Take 10 mL (1,000 mg total) by mouth 4 (four) times a day with meals and nightly. Activetechnetium sestamibi (CARDIOLITE) injection 30 millicurie (2 sources)Start: 09-17-2019 End: 71-10-8392klwrdobnxi sestamibi (CARDIOLITE) injection 30 millicurieStart: 09-16-2019 End: 98-00-6174fkisugrmrd sestamibi (CARDIOLITE) injection 30 wixwqigivc06 actuat tiotropium 0.0025 mg/actuat inhalation spray (10 sources)AnticholinergicStart: 54-60-1182rrnv 2 puff(s) by inhalation once daily2 puff, Inhalation, DAILY RESP, First dose on Sat08/12/24 at 1915, Until DiscontinuedStart: 81-18-3102vymu 1 capsule by inhalation once dailytiotropium (SPIRIVA HANDIHALER) 18 MCG inhalation capsule Indications: Chronic obstructive pulmonary disease, unspecified COPD type (HCC) Inhale 1 capsule into the lungs daily 90 capsule 1 02/06/2024ctiveStart: 75-51-7630kurb 1 capsule by inhalation once dailytiotropium (SPIRIVA HANDIHALER) 18 MCG inhalation capsule Indications: Chronic obstructive pulmonary disease, unspecified COPD type (HCC) Inhale 1 capsule into the lungs daily 90 capsule 1 12/18/2022ctiveStart: 68-27-7116vwti 1 capsule by inhalation once dailytiotropium (SPIRIVA HANDIHALER) 18 MCG inhalation capsule Indications: Chronic obstructive pulmonary disease, unspecified COPD type (HCC) Inhale 1 capsule into the lungs daily 90 capsule 1 06/11/2022ctivetriamcinolone acetonide 5 mg/ml topical cream (20 sources)CorticosteroidStart: 09-11-2017 End: 36-48-6227Ibkffbvzwoyxo Acetonide 0.5% EX CREA 09/11/2017 - 09/11/2017 Provider:Start: 13-52-3413iunmvyllapfge acetonide 0.5 % topical cream 09/11/2017 apply a thin layer to the affected areas by topical route 3 times per dayTrue Metrix Glucose Meter (11 sources)Start: 77-46-3417Zwvk Metrix Glucose Meter miscellaneous misc 12/14/2016 use for blood sugar testing TID (dx: E11.9)TRUE METRIX GLUCOSE METER MIS (20 sources)Start: 12-14-2016 End: 35-28-6265OJBK METRIX GLUCOSE METER MISC 12/14/2016 - 12/14/2016 Provider: TRUE METRIX GLUCOSE METER MISC (10 sources)Start: 12-14-2016 End: 18-30-6928ZINI METRIX GLUCOSE METER MISC 12/14/2016 - 12/14/2016 Provider: TRUE METRIX GLUCOSE TEST STRI MISC (20 sources)Start: 12-14-2016 End: 18-42-2845QHZO METRIX GLUCOSE TEST STRI MISC 12/14/2016 - 12/14/2016 Provider:TRUE METRIX GLUCOSE TEST STRI MISC (10 sources)Start: 12-14-2016 End: 57-75-4000LDMF METRIX GLUCOSE TEST STRI MISC 12/14/2016 - 12/14/2016 Provider:True Metrix Glucose Test Strip (11 sources)Start: 88-22-3313Uomi Metrix Glucose Test Strip miscellaneous strip 12/14/2016 use for blood sugar testing TID (dx: E11.9)vancomycin (VANCOCIN) 750 mg in sodium chloride 0.9 % 250 mL IVPB (Uhxd2Cna) (1 source)Start: 08-06-2024 End: 82-64-7744197 mg (13.2 mg/kg), IntraVENous, at 250 mL/hr, Administer over 60 Minutes, EVERY 12 HOURS, First dose on Jenn 08/06/24 at 1615, Use 20mm (Blue) Clzy2Ybc Adapter Preparation instructions: Attach medication vial to one 20mm (Blue) Mlfd8Osf adapter. Rai fluid bag with adapter, mix, and administer per o rder.VITAMIN D3 400 unit MISC (20 sources)Start: 08-16-2017 End: 87-52-5412CGIFGFA D3 400 unit MISC 08/16/2017 - 08/16/2017 Provider:VITAMIN D3 400 unit MISC (5 sources)Start: 08-16-2017 End: 40-81-0111QXDIHZD D3 400 unit MISC 08/16/2017 - 08/16/2017 Provider: Problems Active Problems Problem ClassificationProblemDateDocumented DateEpisodic/ChronicAbdominal hernia (20 sources)Hernia of anterior abdominal wall; 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: [Ventral, unspecified, hernia without mention of obstruction or gangrene]Onset: 08-30-2013 53-71-9810FzhixxfkMtpul myocardial infarction (20 sources)Myocardial infarction; 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: [Non-ST elevation (NSTEMI) myocardial infarction]Onset: 031310-40-5527MwyrgjqUhliogb disorders (20 sources)Anxiety state, unspecified; 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: [Generalized anxiety disorder]Onset: 617061-82-3986QxxzohbAsckaw; peripheral; and visceral artery aneurysms (20 sources)Abdominal aortic aneurysm without rupture; 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: [Abdominal aortic aneurysm, without rupture]Onset: 635674-35-0885FpazkkbFzwtbds dysrhythmias (2 sources)Atrial fibrillation; 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: [Unspecified atrial fibrillation] Onset: 848851-63-4423WaqrhtmRhpzprq obstructive pulmonary disease and bronchiectasis (20 sources)Acute exacerbation of chronic obstructive airways disease; 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: [Chronic obstructive lung disease]Onset: ChronicChronic ulcer of skin (20 sources)Pressure ulcer, other site; 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: [Chronic ulcer of other specified sites]Onset: 105905-92-4264RtuvtsmKoprimcooe associated with dizziness or vertigo (20 sources)Dizziness; 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: [Dizziness and giddiness]Onset: 05-27-2014 45-01-4220NtyhhnakQsxdfucgra heart failure; nonhypertensive (20 sources)Congestive heart failure; 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: [Acute on chronic diastolic heart failure]Onset: 03-18-2021 Resolved: 96-77-5778EptolilAclobdxt atherosclerosis and other heart disease (20 sources)Coronary arteriosclerosis; 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: [Chronic ischemic heart disease, unspecified]Onset: 11-06-2012 Resolved: 062590-30-0021YjnacjbLfhzwohnoi and other anemia (2 sources)Anemia, unspecified; 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: [Anemia, unspecified]Onset: 384799-67-7600FytbdpqdBbbaggzn mellitus with complications (20 sources)Type 2 diabetes mellitus in obese; 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: [Diabetes with other specified manifestations, type II or unspecified type, not stated as uncontrolled]Onset: 046492-78-2898VtfjsipCxdrmjcr mellitus without complication (20 sources)Type 2 diabetes mellitus; 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: [Diabetes mellitus without mention of complication, type IIor unspecified type, not stated as uncontrolled] Onset: 449227-21-5404VubflnlIckcdpkrg of lipid metabolism (20 sources)Other and unspecified hyperlipidemia; 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: [Mixed hyperlipidemia]Onset: 755160-68-6470RwguenbGdillojm; convulsions (12 sources)Status epilepticus; 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: [Epilepsy, unspecified, not intractable, with status epilepticus]Onset: 11-09-2022 Resolved: 020556-97-8119OtmkqivNmlgnhdap hypertension (20 sources)Unspecified essential hypertension; 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: [Hypertensive disorder]Onset: 763681-01-6891KnvddjgGnzpncgd cause codes: Fall (3 sources)Fall; 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: [Fall from standing, initial encounter]Onset: Fluid and electrolyte disorders (3 sources)Hyponatremia; 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: [Hypokalemia]Onset: EpisodicGastroduodenal ulcer (except hemorrhage) (5 sources)Gastric ulcer without hemorrhage AND without perforation; 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: [Gastric ulcer, unspecifiedas acute or chronic, without hemorrhage or perforation]Onset: 928142-02-7483CirjiltRlfmpnqqgswrt symptoms and ill-defined conditions (20 sources)Incontinence; 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: [Urinary incontinence]Onset: 04-06-2021 50-05-8403ZlnkxozNadwadlnpfis with complications and secondary hypertension (12 sources)Hypertensive emergency; 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: [Hypertensive emergency]Onset: 390151-80-4900NfncieqJuojtzkyb arthritis and osteomyelitis (except that caused by tuberculosis or sexually transmitted disease) (4 sources)Osteomyelitis of left foot; 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: [Osteomyelitis, unspecified]Onset: 877271-80-0216CuwqvojYrcoyos and fatigue (20 sources)Other malaise and fatigue; 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: [Asthenia]Onset: 03-11-2015 37-36-3709GfusxvxhMjti disorders (20 sources)Major depressive affective disorder, recurrent episode, moderate; 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: [Dysthymic disorder]Onset: 856345-11-3135BkpifxlZvsyvs and vomiting (20 sources)Intractable nausea and vomiting; 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: [Nausea with vomiting, unspecified]Onset: 30-11-2605EslmymtwBsigqypohtx deficiencies (20 sources)Undernutrition; 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: [Mild protein-calorie malnutrition] Onset: 02-22-2021 Resolved: 210701-02-3724YyyniqePmvkdafsz or stenosis of precerebral arteries (20 sources)Bilateral atherosclerosis of carotid arteries; 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: [Occlusion and stenosis of bilateral carotid arteries]Onset: 05-27-2014 89-15-7954IodspieRqdbxarlv or stenosis of precerebral arteries (20 sources)Bilateral atherosclerosis of carotid arteries; 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: [Atherosclerosis of both carotid arteries]Onset: Osteoarthritis (1 source)Osteoarthritis; 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: [Osteoarthritis, unspecified osteoarthritis type, unspecified site]ChronicOther and ill-defined cerebrovascular disease (1 source)Posterior reversible encephalopathy syndrome; 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: [POST REVERSIBLE ENCEPHALOPATHY SYND]Onset: 14-58-4615XcckgpnVhtsy and ill-defined cerebrovascular disease (12 sources)Posterior reversible encephalopathy syndrome; 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: [Posterior reversible encephalopathy syndrome]Onset: 449983-16-3918Cduptqi Other bone disease and musculoskeletal deformities (1 source)Avascular necrosis of bone; 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: [Avascular necrosis (HCC)] ChronicOther circulatory disease (3 sources)Disorder of carotid artery; 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: [Bilateral carotid artery disease, unspecified type (HCC)]ChronicOther circulatory disease (20 sources)History of angioplasty; 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: [Peripheral vascular angioplasty status with implants and grafts]Onset: 624869-35-7948Rycmtsj Other circulatory disease (8 sources)Blood vessel finding; 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: [Presence of other vascular implants and grafts]Onset: 045910-02-0956PdejdgfWngve circulatory disease (4 sources)Disorder of artery; 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: [Disorder of arteries and arterioles, unspecified]Onset: 014941-53-8960AddcixcXhuwd circulatory disease (1 source)Disorder of arteries and arterioles, unspecified; 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: [Disorder of arteries and arterioles, unspecified]Onset: 73-34-7983CrxwcsfQqhjy circulatory disease (7 sources)History of angioplasty; 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: [S/P angioplasty with stent] Onset: 223786-93-7519FdgzhcrcKigrg circulatory disease (2 sources)Low blood pressure; 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: [Hypotension, unspecified] 56-99-1950KsvzzpkoLrufa circulatory disease (3 sources)Hypotension, unspecified; 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: [Hypotension, unspecified] Onset: 951935-79-2766AznpskyuPnmbh connective tissue disease (1 source)Pain in left arm; 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: [Pain of left upper extremity]Episodic Other connective tissue disease (1 source)Chronic pain of left foot; 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: [Pain in left foot]Onset: 696584-35-4644WjheuqpdTvukd ear and sense organ disorders (3 sources)Otalgia, unspecifiedOnset: 17-51-7655TxcxxesyLnbrq gastrointestinal disorders (13 sources)Diarrhea; 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: [Diarrhea, unspecified]Onset: 07-04-2021 99-15-5931EzoaoewgUajte gastrointestinal disorders (1 source)Diarrhea, unspecified; 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: [Diarrhea, unspecified]Onset: 38-61-9445PokfggqqQjjjo injuries and conditions due to external causes (1 source)Contusion; 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: [Unspecified multiple injuries, initial encounter]EpisodicOther injuries and conditions due to external causes (1 source)Other injury of unspecified body region, initial encounter; 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: [Open wound(s) (multiple)of unspecified site(s), without mention of complication]Onset: 942630-44-6316AsxsachtIbvmx lower respiratory disease (20 sources)CoughOnset: 20-76-6342YpqiurfyDhkuz lower respiratory disease (5 sources)Shortness of breathOnset: 60-88-5368NrwjzpowZzvzh lower respiratory disease (1 source)Acute pulmonary edema; 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: [Acute pulmonary edema (HCC)] EpisodicOther lower respiratory disease (9 sources)Hypoxia; 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: [Hypoxemia]Onset: 244038-20-3313Qubhqerj Other lower respiratory disease (2 sources)Shortness of breath; 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: [Shortness of breath]Onset: 22-56-0661JrndbqypJhrhg nervous system disorders (4 sources)Other chronic pain; 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: [Other chronic pain]Onset: 45-28-7541JhvqtieInbbi nervous system disorders (13 sources)Chronic pain syndrome; 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: [Chronic pain syndrome]Onset: 668914-19-4259KhctwutFztvr nervous system disorders (4 sources)Neuropathy; 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: [Polyneuropathy, unspecified]Onset: 177776-60-8919OsztubzBvahz nervous system disorders (1 source)Chronic pain syndrome; 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: [Chronic pain syndrome]Onset: 95-84-2369WtwvrkhXbuwv non-traumatic joint disorders (20 sources)Hip pain; 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: [Pain in right hip]Onset: 81-92-2224Fnajpdwa Other nutritional; endocrine; and metabolic disorders (20 sources)Obesity, unspecifiedOnset: 41-52-8776QwgnhfvUhgox nutritional; endocrine; and metabolic disorders (10 sources)Body Mass Index 34.0-34.9, adultOnset: 56-14-5268DtmawtbBkrim nutritional; endocrine; and metabolic disorders (4 sources)Body Mass Index 39.0-39.9, adultOnset: 65-17-5337WshhcasEcwbb nutritional; endocrine; and metabolic disorders (4 sources)Body Mass Index 40.0-44.9, adultOnset: 52-11-9714NruyrzsCblgz nutritional; endocrine; and metabolic disorders (4 sources)Body Mass Index 33.0-33.9, adultOnset: 79-28-1950RkjzhvaHutfa nutritional; endocrine; and metabolic disorders (4 sources)Body Mass Index 32.0-32.9, adultOnset: 98-96-4052UhaegkmZvhbp nutritional; endocrine; and metabolic disorders (20 sources)Simple obesity ; 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: [Obesity, unspecified]Onset: 80-91-8015MeydkbeCvyvx nutritional; endocrine; and metabolic disorders (9 sources)Finding of body mass index; 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: [Body mass index [BMI]] Onset: 62-69-9045RhquyitInvlh nutritional; endocrine; and metabolic disorders (12 sources)Severe obesity; 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: [Morbid (severe) obesity due to excess calories]Onset: 319793-62-5749ZvcrhjjIsgga screening for suspected conditions (not mental disorders or infectious disease) (20 sources)Encounter for screening for diabetes mellitus; 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: [Thallium stress test abnormal]Onset: 01-22-2013 Resolved: 760077-12-2677CvzhddjoUfqug upper respiratory disease (4 sources)Allergic rhinitis, cause unspecifiedOnset: 57-97-0740IbngjbjYojux upper respiratory disease (18 sources)Perennial allergic rhinitis with seasonal variation; 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: [Assessment of Allergic RhinitisPerennial with Seasonal Variation]Onset: 57-41-1260ImrvccpVrijp upper respiratory disease (5 sources)Allergic rhinitis; 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: [Allergic rhinitis, unspecified] Onset: 186701-28-7851UydepxhGddhft media and related conditions (9 sources)Chronic suppurative otitis media of left middle ear; 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: [Other chronic suppurative otitis media, left ear]Onset: 494525-12-5645 ChronicPeripheral and visceral atherosclerosis (20 sources)Peripheral vascular disease, unspecified; 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: [Atherosclerosis of arteries of the extremities]Onset: ChronicPhlebitis; thrombophlebitis and thromboembolism (20 sources)H/O: thrombosis; 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: [Personal history of other venous thrombosis and embolism]67-63-4602MxaozmttEozaqqht; pneumothorax; pulmonary collapse (1 source)Bilateral pleural effusion; 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: [Pleural effusion, not elsewhere classified]EpisodicPulmonary heart disease (12 sources)Pulmonary hypertension; 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: [Pulmonary hypertension, unspecified]Onset: 821247-76-5876WjuabhzHrqhxbdp codes; unclassified (20 sources)Tobacco user; 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: [Tobacco abuse]Onset: 05-27-2014 44-11-3788XxyelmvXukueyqx codes; unclassified (2 sources)Persistent insomnia; 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: [Persistent Insomnia]Onset: 33-78-9191SwufxjoUlmbwozo codes; unclassified (4 sources)Restlessness and agitation; 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: [Restlessness and agitation]Onset: 178949-81-6107NfuursiScpayumy codes; unclassified (1 source)Restlessness and agitation; 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: [Restlessness and agitation] Onset: 14-82-3908UpgkuovIewhpflu codes; unclassified (20 sources)Tobacco user; 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: [Tobacco use]Onset: EpisodicResidual codes; unclassified (1 source)Tobacco use; 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: [Tobacco use]Onset: 99-13-9921Gugumafs Residual codes; unclassified (1 source)Pain; 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: [Pain, unspecified]22-80-7467XzxofqfqHcdftllm codes; unclassified (1 source)Other specified personal risk factors, not elsewhere classified; 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: [Other specified personal risk factors, not elsewhere classified] Onset: 64-33-2325WpgycvmvVrnkbjigizd failure; insufficiency; arrest (adult) (20 sources)Acute on chronic hypoxemic respiratory failure; 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: [Acute and chronic respiratory failure with hypoxia]Onset: 04-23-2019 Resolved: 697616-38-1906AksjmcvDcraochipdj failure; insufficiency; arrest (adult) (20 sources)Acute hypoxemic and hypercapnic respiratory failure; 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: [Acute on chronic hypercapnic respiratory failure]Onset: Spondylosis; intervertebral disc disorders; other back problems (5 sources)Degeneration of lumbar intervertebral disc; 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: [Lumbar spondylosis]Onset: 921302-22-3385XcdrhfsFubivntfk-sxqeehl disorders (20 sources)Tobacco use disorder; 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: [Tobacco dependence syndrome] Onset: 617269-96-3623HzsozpdTtufjtbcove injury; contusion (3 sources)Right knee abrasion; 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: [Abrasion, right knee, initial encounter]EpisodicSyncope (2 sources)Near syncope; 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: [Syncope and collapse]EpisodicThyroid disorders (20 sources)Hypothyroidism; 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: [Unspecified acquired hypothyroidism] Onset: 805127-29-1810FdabxxjAodgktdkbntt (20 sources)Body Mass Index 35.0-35.9, adult; 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: [Body Mass Index 39.0-39.9, adult]Onset: 41-11-3499PdtwlxhGutrxrfjtlag (1 source)Contusion of left hand; 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: [Contusion of left hand, initial encounter]Unclassified (1 source)COVID-19; 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: [COVID-19]Onset: Unclassified (4 sources)History of cardiac catheterization; 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: [S/P cardiac cath] Onset: 778653-37-7849Xrunkqnfthnx (1 source)CONTACT W/AND (SUSP) EXPOS COVID-19; 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: [CONTACT W/AND (SUSP) EXPOS COVID-19]Onset: 24-45-8923Dongkgxxrvcx (1 source)Weakness - GeneralizedOnset: 89-59-7377Wjgzsixikefc (1 source)Pressure-induced deep tissue damage of left heel; 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: [Pressure-induced deep tissue damage of left heel]Onset: 59-04-9399Aoihpjeahuph (1 source)Wound CheckOnset: 54-20-9439Iefexcpbntry (1 source)Decreased Oxygen Level With No SymptomsOnset: 94-71-2344Odyfiflpwpvx (1 source)Musculoskeletal ProblemOnset: 54-95-6602Tsehjimxebzp (1 source)Exposure Coronavirus (Covid-19)Onset: 84-43-8296Fcjmhxsdbbhv (1 source)Body Aches, Chills, Runny NoseOnset: 90-58-3401Dbwieycnbqvb (1 source)BLE pain, worse over past couple days. CTA Deep profunda is the main supply of both lower extremities, severe stenosis at the right deep profunda artery, Aortobiiliac bypass graft is widely patent. Both SFA and left femoral popliteal bypass grafts are occluded.Onset: 27-39-4583Obqjtmi tract infections (20 sources)Urinary tract infectious disease; 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: [Escherichia coli urinary tract infection]Onset: 002867-98-9730Zrchypaf Past or Other Problems Problem ClassificationProblemDateDocumented DateEpisodic/ChronicAbdominal pain (20 sources)Abdominal pain, other specified site; 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: [Abdominal pain] Onset: 99-19-3559VinbnpoaPjabqduxssdktl/social admission (20 sources)Counseling procedure with explicit context; 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: [Relationship problems]Onset: 634132-86-5735RhyfblagAloytip obstructive pulmonary disease and bronchiectasis (20 sources)Bronchitis; 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: [Bronchitis, not specified as acute or chronic]Onset: 65-75-0562AmhbtalbFbwixdrnpptwk of surgical procedures or medical care (20 sources)Non-healing surgical wound; 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: [Other postoperative infection]Onset: 402349-95-5542ItogqxgkBkaepioq atherosclerosis and other heart disease (20 sources)Recurrent coronary arteriosclerosis after percutaneous transluminal coronary angioplasty; 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: [Presence of coronary angioplasty implant and graft]Onset: 643477-30-7170WltanjfvMtgaakif injury or internal injury (20 sources)Unspecified injury of unspecified part of pancreas, initial encounter; 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: [Splenic hematoma]Onset: 397068-37-3880Atekgcqa Deficiency and other anemia (6 sources)Anemia; 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: [Anemia, unspecified]Onset: 01-28-2023 87-68-6536IgigjmyySwduzwxi mellitus without complication (15 sources)Hyperglycemia; 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: [Hyperglycemia, unspecified]Onset: 958449-17-4831DxfzfdmqQldbvbbn of mouth; excluding dental (4 sources)Oral lesion; 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: [Other lesions of oral mucosa]Onset: 224411-67-5013PnmumdlvDiughucbx of teeth and jaw (10 sources)Acute apical periodontitis of pulpal originOnset: 32-19-6334Ifpkqgaz E Codes: Fall (20 sources)Fall; 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: [Unspecified fall, initial encounter]Onset: 04-06-2021 Resolved: 39-96-3987QcmldrcsHrmpudww; convulsions (1 source)Unspecified convulsions; 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: [UNSPECIFIED CONVULSIONS]Onset: 59-37-4615NgexhyxdRmlramugwdffidrv hemorrhage (20 sources)Acute lower gastrointestinal hemorrhage; 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: [Gastrointestinal hemorrhage, unspecified]Onset: 041382-34-3542Gsnsokfp Immunizations and screening for infectious disease (20 sources)Need for prophylactic vaccination and inoculation against influenza; 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: [Contact with and (suspected) exposure to other viral communicable diseases]Onset: 02-10-2015 Resolved: 065914-69-0397XfzovwsxXbmfycoqiuoc; infection of eye (except that caused by tuberculosis or sexually transmitteddisease) (20 sources)Acute atopic conjunctivitis; 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: [Acute atopic conjunctivitis]Onset: 72-12-9500MpiacowvOfgpxni examination/evaluation (8 sources)Laboratory examination, unspecifiedOnset: 78-53-1110PvmopugcDoil disorders (20 sources)Major depressive disorder, single episode, unspecified; 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: [Mood disorders]Onset: 10-22-2022 Resolved: 024915-55-8478Iyvaxdrqxcl chest pain (8 sources)Chest pain; 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: [Chest pain, unspecified]Onset: 01-19-2024 45-36-8554UytoarpmOeuz wounds of extremities (6 sources)Open wound of foot, excluding toe(s); 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: [Unspecified open wound, unspecified foot, initial encounter]Onset: 021110-86-3898Vrtwqohb Open wounds of head; neck; and trunk (13 sources)Open wound(s) (multiple) of unspecified site(s), without mention of complication; 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: [Laceration of nose]Onset: EpisodicOther aftercare (1 source)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; 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]Onset: 29-75-8040JytyagjzNczol bone disease and musculoskeletal deformities (10 sources)Other disorders of bone and cartilageOnset: 56-36-3779KcwrbcqvJwqnm circulatory disease (5 sources)Pulmonary congestion ; 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: [Other specified symptoms and signs involving the circulatory and respiratory systems]Onset: 09-21-2022 61-44-3491XzvjtpesOhvdo circulatory disease (8 sources)Ischemia of left lower extremity; 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: [Other disorder of circulatory system]Onset: 127871-98-8598SjrydjhmMsdim circulatory disease (4 sources)Disorder of cardiovascular system; 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: [Unspecified disorder of circulatory system]Onset: 475175-84-0280FeupxbifCasjj circulatory disease (2 sources)Other disorder of circulatory system; 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: [Other disorder of circulatory system]Onset: 75-00-4705HjappehqYtvnb connective tissue disease (20 sources)Pain in limbOnset: 50-44-2608NkhhafqkGznqs connective tissue disease (15 sources)Spasm; 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: [Other muscle spasm]Onset: 997657-98-0549 EpisodicOther connective tissue disease (9 sources)Pain of left hand; 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: [Pain in left hand]Onset: 06-11-2022 40-77-1794GntgzaaxIdusm connective tissue disease (9 sources)Intermittent claudication; 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: [Pain in leg, unspecified] Onset: 084097-40-5983VoiofuqkJjdkg connective tissue disease (10 sources)Pain in lower limb; 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: [Pain in leg, unspecified]Onset: 312538-84-4276DriuemffWaqna connective tissue disease (4 sources)Disorder of musculoskeletal system; 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: [Soft tissue disorder, unspecified]Onset: 909449-13-7132XkggthjvLlbxc connective tissue disease (1 source)Other specified soft tissue disorders; 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: [Other specified soft tissue disorders]Onset: 76-26-9958EyqjgvtoUqdmu connective tissue disease (2 sources)Pain in leg, unspecified; 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: [Pain in leg, unspecified] Onset: 10-67-8501JpddeaiuZecfl ear and sense organ disorders (12 sources)Excessive cerumen in ear canal ; 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: [Impacted cerumen, bilateral]Onset: 746610-93-5667PnawuvgxIklni fractures (1 source)Unspecified fracture of second lumbar vertebra, initial encounter for closed fracture; 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: [UNS FX SECOND LUMB VERT INIT PAYAM FX]Onset: 37-59-0559BpjqvmcsRtcmg fractures (4 sources)Closed fracture of pelvis; 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: [Fracture of unspecified parts of lumbosacral spine and pelvis, initial encounter for closed fracture] Onset: 005037-66-5507KfzzvkhaXcrjn gastrointestinal disorders (13 sources)Abdominal mass; 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: [Right lower quadrant abdominal swelling, mass and lump]Onset: 049524-86-2153EcavqoctArnza infections (8 sources)Unspecified infectious and parasitic diseasesOnset: 10-29-2017 EpisodicOther inflammatory condition of skin (4 sources)Erythema; 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: [Erythematous condition, unspecified]Onset: 156234-14-4416EmhknlajWpicz injuries and conditions due to external causes (10 sources)Insect bite, nonvenomous, of other, multiple, and unspecified sites, without mention of infectionOnset: 11-87-6666NbinrdwjOmghe injuries and conditions due to external causes (5 sources)Closed injury of head; 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: [Unspecified injury of head, initial encounter]Onset: 46-94-7153YswnpzksZxwxp lower respiratory disease (20 sources)Dyspnea; 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: [Shortness of breath]Onset: 11-23-2021 84-94-6477LqgnaiyrQatmk lower respiratory disease (17 sources)Cough; 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: [Cough]Onset: 07-25-2021 Resolved: 720295-74-5858FakulagtQslgc lower respiratory disease (14 sources)Respiratory distress; 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: [Acute respiratory distress] Onset: 192667-20-2133PpndrmqzEelnp lower respiratory disease (20 sources)Chronic cough; 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: [Chronic cough]Onset: 03-13-2022 30-89-5802LqurmcilSfmes lower respiratory disease (4 sources)Hypoxemia; 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: [Hypoxemia]Onset: EpisodicOther nervous system disorders (5 sources)Numbness; 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: [Anesthesia of skin]Onset: 05-16-2024 87-19-4339ItmlhioiGrjqw nervous system disorders (1 source)Paresthesia of skin; 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: [Paresthesia of skin]Onset: 50-49-3737SmdrhaxiBaaxm non-traumatic joint disorders (20 sources)Pain in joint, shoulder regionOnset: 89-95-9027DqjrkjiuPfvaq non- traumatic joint disorders (20 sources)Shoulder pain; 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: [Pain in unspecified limb]Onset: 24-81-6346UnbhpiwkJlhkk non-traumatic joint disorders (12 sources)Pain in right hip joint; 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: [Pain in right hip]Onset: 40-60-5270KgczjdwbGwtsw non-traumatic joint disorders (17 sources)Pain in right knee; 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: [Pain in joint, lower leg]Onset: 996608-42-4239CgoaagizUvjjd non-traumatic joint disorders (15 sources)Chronic pain of left upper limb; 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: [Pain in left shoulder]Onset: 185006-03-6449CvvjedrcQpwvm non-traumatic joint disorders (4 sources)Pain in right hip; 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: [Pain in right hip]Onset: 11-17-2021 EpisodicOther non-traumatic joint disorders (2 sources)Pain in left hip; 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: [Pain in left hip]Onset: 12-18-2021 EpisodicOther nutritional; endocrine; and metabolic disorders (1 source)Finding of body mass index; 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: [Body mass index [BMI]] Onset: 00-94-0431FnxqkwbjJeojm nutritional; endocrine; and metabolic disorders (5 sources)Weight decreased; 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: [Abnormal weight loss]Onset: 768166-40-7406IsghtkbeZxzwv skin disorders (20 sources)Inflammatory dermatosis; 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: [Contact dermatitis and other eczema, unspecified cause]Onset: 25-06-4948MnrpnvgnMiuuv skin disorders (9 sources)Mass of lower limb; 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: [Localized swelling, mass and lump, left lower limb]Onset: 884562-57-3672QzaqlpuxVmtdw skin disorders (4 sources)Lesion of skin of foot; 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: [Changes in skin texture]Onset: 966043-82-7259AhilvelxMvwtq skin disorders (4 sources)Xeroderma; 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: [Xerosis cutis]Onset: 872105-02-1476 EpisodicOther skin disorders (1 source)Changes in skin texture; 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: [Changes in skin texture]Onset: 60-22-3573SuxfoonbJoyxg upper respiratory infections (20 sources)Acute upper respiratory infections of unspecified site; 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: [Acute sinusitis]Onset: 70-12-0561IgdpfbxqAvweus media and related conditions (9 sources)Acute suppurative otitis media without spontaneous rupture of ear drum; 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: [Acute suppurative otitis media without spontaneous rupture of ear drum, left ear]Onset: 196053-18-1450NfcfynnsRtjljoeled disorders (not diabetes) (20 sources)Mass of pancreas; 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: [Other specified diseases of pancreas]Onset: 341124-59-4721UnqrwgevCvnyfkgat (except that caused by tuberculosis or sexually transmitted disease) (20 sources)Infective pneumonia; 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: [Community acquired pneumonia] Onset: 098344-63-1603NlbszmanHdnbbkkad by other medications and drugs (20 sources)Drug intolerance; 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: [Other specified health status] Onset: 039072-86-9278BjttqavmFsewjbsyx heart disease (9 sources)Pulmonary embolism; 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: [Other pulmonary embolism without acute cor pulmonale]Onset: 018239-53-8521FdoshvdmDzpcroal codes; unclassified (20 sources)Altered mental status; 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: [Altered mental status, unspecified]Onset: 483621-56-1099OmynwbasCihnsgjv codes; unclassified (2 sources)Other general symptoms and signs; 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: [Suspected COVID-19 virus infection]Onset: 07-17-2019 Resolved: 956900-42-5386BnamnhejFnkggsxy codes; unclassified (20 sources)History of cardiac catheterization; 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: [Other specified postprocedural states]Onset: 731850-18-1111NwydczoaWfdloyam codes; unclassified (20 sources)Edema of lower extremity; 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: [Localized edema]Onset: 430460-68-3748QnlyzjeuUptaxqcl codes; unclassified (13 sources)Difficulty sleeping ; 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: [Sleep disorder, unspecified] Onset: 542333-31-5135RnnxcjvcTpfchvkm codes; unclassified (20 sources)Insomnia; 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: [Insomnia, unspecified]Onset: 06-22-2021 21-84-9052MoiddzpkZpoqvcwo codes; unclassified (11 sources)Tobacco use and exposure - finding; 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: [Tobacco use] Onset: 10-76-1570OfkbqkcaUxgdskgl codes; unclassified (12 sources)Postoperative state; 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: [Other specified postprocedural states]Onset: 678691-73-4662IwkcncigMrkeynou codes; unclassified (4 sources)Transient alteration of awareness; 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: [Transient alteration of awareness]Onset: 950735-65-2624JtkjnafdRwwxkzpl codes; unclassified (4 sources)Acute insomnia; 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: [Insomnia, unspecified]Onset: 390989-49-0742RvbooaorAdxcuamp codes; unclassified (5 sources)Unable to perform personal care activity; 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: [Other specified health status]Onset: 512965-76-7212RrhdtpfxDqhogwqc codes; unclassified (1 source)Other specified health status; 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: [Other specified health status]Onset: 13-05-5843LproifdrWjtqoicjjky failure; insufficiency; arrest (adult) (20 sources)Acute hypoxemic and hypercapnic respiratory failure; 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: [Acute respiratory failure with hypoxia]Onset: 06-05-2018 Resolved: 846495-79-4886SfovwchcDcqu and subcutaneous tissue infections (20 sources)Cellulitis of left lower limb; 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: [Cellulitis of left lower limb]Onset: 86-57-4171XilqmbbhPqiwt and face fractures (4 sources)Closed fracture of nasal bones; 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: [Fracture of nasal bones, initial encounter for closed fracture]Onset: 502051-30-0687Aqwyjszo Spondylosis; intervertebral disc disorders; other back problems (20 sources)Backache, unspecified; 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: [Lumbago]Onset: 02-10-2015 46-48-0359WfmruqwaNjiqczy and strains (8 sources)Strain of muscle and/or tendon of thigh; 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: [Strain of tendon of medial thigh muscle]Onset: 08-02-2097IflaysosScwinwmvk-related disorders (20 sources)Cigarette smoker ; 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: [Poisoning by opiate analgesic drug]Onset: 306690-33-6604WbpbkazeYfmrvxt disorders (20 sources)Disorder of thyroid gland; 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: [Disorder of thyroid, unspecified] Resolved: 188993-35-4650MizwstssDwbskuevmqam (10 sources)Insomnia, unspecifiedOnset: 30-60-6465CeplbfmwPvvxwldusdxt (20 sources)Finding of body mass index; 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: [Body Mass Index]Onset: 61-56-9591Wrzstnasjzew (20 sources)Questionnaires Phq-9 Total Score; 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: [Questionnaires Phq- 9 Total Score]Onset: 69-41-4991Pkjgzcatbrjj (20 sources)Fagerstrom Score; 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: [Fagerstrom Score]Onset: 01-12-2019 Unclassified (20 sources)Patient encounter status; 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: [Colon cancer screening] Onset: 03-17-2015 Resolved: 900311-19-2606Gkmbppbfhtoz (2 sources)Onset: 665334-61-7154Bugeo infection (19 sources)COVID-19; 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: [Pneumonia due to other virus not elsewhere classified]Onset: 259083-72-0696Agggyjew Results Test NameValueInterpretationReference RangeFacilityBEDSIDE GLUCOSEon 01-01-2025 Glucose [Mass/Vol]251 mg/bQYtai04-27JjoIxifkeSt. Mary's Medical CenterComment on above: Performed By: #### BEDG ####[facility] ([address] VIRGlucose [Mass/Vol]199 mg/bKEidp12-56LgvZdvysfSt. Mary's Medical CenterComment on above:Performed By: #### BEDG ####[facility] ([address] [id number] VIRBedside Glucose *Place/Obtain serum glucose if >500 per glucometer.on 55-41-1738Oortszm [Mass/Vol]251 mg/bUPnzz40 - 99 mg/dLUC [facility] HospitalInterpretation and review of laboratory resultsAbnoFirst Hospital Wyoming ValleyGlucose [Mass/Vol]199 mg/iWVblf64 - 99 mg/dLUC [facility] Interpretation and review of laboratory resultsAbnoFormerly named [facility] Care CenterGlucose [Mass/Vol]189 mg/rDNqqn02 - 99 mg/dLUC [facility] HospitalInterpretation and review of laboratory resultsAbnoFirst Hospital Wyoming ValleyGlucose [Mass/Vol]242 mg/zUNgtk66 - 99 mg/dL [facility] HospitalInterpretation and review of laboratory resultsAbnoal [facility] University HospitalGlucose [Mass/Vol]321 mg/sKBtqp06 - 99 mg/dLUC [facility] HospitalInterpretation and review of laboratory results AbnormalProEllwood Medical CenterCBC WITH AUTO DIFFERENTIAL on 68-35-5862QNLDUZSVR ABSOLUTE COUNT (10*3/UL) BY AUTOMATED COUNT0.0 10*3/uL Normal0.0-0.2PLicking Memorial Hospital on above:Result Comment: This is an appended report. These results have been appended to a previously preliminary verified report.Performed By: #### CBCA ####[facility] ([facility])[address] [facility], [id number] VIRBASOPHILS RELATIVE PERCENT BY AUTOMATED COUNT0.3 %NormalMercer County Community Hospital on above:Result Comment: This is an appended report. These results have been appended to a previously preliminary verified report.Performed By: #### CBCA ####[facility] ([facility])[address] [place], [place] [address]E.[place], [id number] VIR CELLAVISION ANISOCYTOSIS IN BLOOD BY LIGHT MICROSCOPY2+[facility] on above:Result Comment: This is an appended report. These results have been appended to a previously preliminary verified report.Performed By: #### CBCA ####[facility] ([facility])[address] [place] [address], [id number] VIRCELLAVISION DIFFERENTIAL TYPEAUTOMATED DIFFERENTIAL [facility] on above:Result Comment: This is an appended report. These results have been appended to a previously preliminary verified report.Performed By: #### CBCA ####[facility] ([facility])[address] [place], [place] [address]E.[place], [id number] VIRCELLAVISION ELLIPTOCYTES IN BLOOD BY LIGHT MICROSCOPY1+NormalMercer County Community Hospital on above:Result Comment: This is an appended report. These results have been appended to a previously preliminary verified report.Performed By: #### CBCA ####[facility] ([facility])[address] [place] [address] AVE[facility]ALT, [id number] VIR CELLAVISION RBC FRAGMENTS1+NormalSt. Mary's Medical CenterComchelsea hospital on above: Result Comment: This is an appended report. These results have been appended to a previously preliminary verified report.Performed By: #### CBCA ####[facility] ([address] [id number] VIR Eosinophils (Bld) [#/Vol]0.0 10*3/uLNormal0.0-0.4St. [facility] Comment on above:Result Comment: This is an appended report. These results have been appended to a previously preliminary verified report.Performed By: #### CBCA ####[facility] ([address] [address] VIREOSINOPHILS RELATIVE PERCENT BY AUTOMATED COUNT0.0 %NormalSt. Mary's Medical CenterComment on above:Result Comment: This is an appended report. These results have been appended to a previously preliminary verified report. Performed By: #### CBCA ####[facility] ([address], [id number] VIRErythrocyte distribution width (RBC) [Ratio]24.1 % High11.5-15ProHca Houston Healthcare North CypressComment on above:Performed By: #### CBCA ####[facility] ([address], [id number] VIRHematocrit (Bld) [Volume fraction]37.2 %Bswsoj28-66LbbVigyusHca Houston Healthcare North CypressComment on above:Performed By: #### CBCA ####[facility] ([address] [id number] VIRHemoglobin (Bld) [Mass/Vol] 11.7 g/hQDcuhjl02.7-15.5PKeenan Private HospitalComment on above:Performed By: #### CBCA ####[facility] ([address] [id number] VIRLYMPHOCYTES ABSOLUTE COUNT (10*3/UL) BY AUTOMATED COUNT 0.3 10*3/uLLow1.0-3.5PKeenan Private HospitalComment on above:Result Comment: This is an appended report. These results have been appended to a previously preliminary verified report.Performed By: #### CBCA ####[facility] ([address], [id number] VIRLYMPHOCYTES RELATIVE PERCENT BY AUTOMATED COUNT3.0 %NormalProHca Houston Healthcare North CypressComchelsea hospital on above:Result Comment: This is an appended report. These results have been appended to a previously preliminary verified report.Performed By: #### CBCA ####[facility] ([address], [id number] VIRMCH (RBC) [Entitic mass]25.8 kjFbz75-77YjnCbuxodSt. Mary's Medical CenterComment on above:Performed By: #### CBCA ####[facility] ([address], [id number] VIRMCHC (RBC) [Mass/Vol]31.3 g/nWAtv09-27 St. [facility]'s Medical CenterComment on above:Performed By: #### CBCA ####[facility] ([address], [id number] VIRMCV (RBC) [Entitic vol]82 sYPfhpop77-459UohUvxicxSt. Mary's Medical CenterComment on above: Performed By: #### CBCA ####[facility] ([address], [id number] VIRMONOCYTES ABSOLUTE COUNT (10*3/UL) BY AUTOMATED COUNT0.3 10*3/uLNormal0.0-0.9[facility] on above:Result Comment: This is an appended report. These results have been appended to a previously preliminary verified report.Performed By: #### CBCA ####[facility] ([address], [id number] VIRMONOCYTES RELATIVE PERCENT BY AUTOMATED COUNT2.7 %NormalProHca Houston Healthcare North CypressComment on above:Result Comment: This is an appended report. These results have been appended to a previously preliminary verified report.Performed By: #### CBCA ####[facility] ([facility])[address] [place], [place] [address]E.[place], [id number] VIRNEUTROPHILS ABSOLUTE COUNT BY AUTOMATED COUNT9.7 10*3/uLHigh1.5-6.6ProHca Houston Healthcare North CypressComment on above:Result Comment: This is an appended report. These results have been appended to a previously preliminary verified report. Performed By: #### CBCA ####[facility] ([address], [id number] VIRNEUTROPHILS RELATIVE PERCENT BY AUTOMATED COUNT94.0 %NormalSt. Mary's Medical CenterComment on above:Result Comment: This is an appended report. These results have been appended to a previously preliminary verified report.Performed By: #### CBCA ####[facility] ([address], [id number] VIRPlatelet mean volume (Bld) [Entitic vol]7.3 fLNormal7-12PKeenan Private HospitalComment on above:Performed By: #### CBCA ####[facility] ([address], [id number] VIRPlatelets (Bld) [#/Vol]305 10*3/wSRgunhz111-714AzzDiktdx Fremont HospitalComment on above:Performed By: #### CBCA ####[facility] ([address], [id number] VIRRBC COUNT4.52 X10E12/LNormal3.8-5.2PKeenan Private HospitalComment on above:Performed By: #### CBCA ####[facility] ([address], [id number] VIRWBC (Bld) [#/Vol]10.3 10*3/uLNormal4-11ProHca Houston Healthcare North CypressComment on above:Performed By: #### CBCA ####[facility] ([facility] [place] [address] AVE.[place], [id number] VIRCBC auto differentialon 63-33-7611Mjakrbbfiost Ql (Bld)2+[facility] SystemComment on above:This is an appended report. These results have been appended to a previously preliminary verified report.Basophils (Bld) [#/Vol]0 10*3/uL0.0 - 0.2 10*3/uL [facility] HospitalComment on above:This is an appended report. These results have been appended to a previously preliminary verified report. Basophils/100 WBC (Bld)0.3 %[facility] HospitalComment on above:This is an appended report. These results have been appended to a previously preliminary verified report.Complement C3 fragment (RBC) [Mass/Vol]1+[facility] Comment on above:This is an appended report. These results have been appended to a previously preliminary verified report.Differential cell count method Nom (Bld)AUTOMATED DIFFERENTIALUC West Chester HospitalComment on above:This is an appended report. These results have been appended to a previously preliminary verified report.Elliptocytes LM Ql (Bld)1+[facility] SystemComment on above:This is an appended report. These results have been appended to a previously preliminary verified report.Eosinophils (Bld) [#/Vol]0 10*3/uL0.0 - 0.4 10*3/uLCleveland Clinic Children's Hospital for Rehabilitation SystemComment on above:This is an appended report. These results have been appended to a previously preliminary verified report. Eosinophils/100 WBC (Bld)0 %[facility] HospitalComment on above:This is an appended report. These results have been appended to a previously preliminary verified report.Erythrocyte distribution width (RBC) [Ratio]24.1 %High11.5 - 15 %[facility] HospitalHematocrit (Bld) [Volume fraction]37.2 %35 - 47 % [facility] HospitalHemoglobin (Bld) [Mass/Vol]11.7 g/dL11.7 - 15.5 g/dL [facility] HospitalInterpretation and review of laboratory resultsAbnormal [facility] HospitalLymphocytes (Bld) [#/Vol]0.3 10*3/uLLow1.0 - 3.5 10*3/uL [facility] HospitalComment on above:This is an appended report. These results have been appended to a previously preliminary verified report. Lymphocytes/100 WBC (Bld)3 %[facility] HospitalComment on above:This is an appended report. These results have been appended to a previously preliminary verified report.MCH (RBC) [Entitic mass]25.8 pgLow27 - 34 [facility] EastMCHC (RBC) [Mass/Vol]31.3 g/dLLow32 - 36 g/dLUC [facility] HospitalMCV (RBC) [Entitic vol]82 fL80 - 100 [facility] springfieldMonocytes (Bld) [#/Vol]0.3 10*3/uL0.0 - 0.9 10*3/uLUC [facility] HospitalComment on above:This is an appended report. These results have been appended to a previously preliminary verified report.Monocytes/100 WBC (Bld)2.7 %[facility] Comment on above:This is an appended report. These results have been appended to a previously preliminary verified report.Neutrophils (Bld) [#/Vol]9.7 10*3/uL High1.5 - 6.6 10*3/uLUC [facility] HospitalComment on above:This is an appended report. These results have been appended to a previously preliminary verified report.Neutrophils/100 WBC (Bld)94 %[facility] HospitalComment on above:This is an appended report. These results have been appended to a previously preliminary verified report.Platelet mean volume (Bld) [Entitic vol]7.3 fL7 - 12 [facility] springfieldPlatelets (Bld) [#/Vol]305 10*3/uLUC [facility] HospitalRBC (Bld) [#/Vol]4.52 10*6/uLUC [facility] HospitalWBC LM Ql (Sput)10.3 [facility] HospitalCOMPREHENSIVE METABOLIC PANELon [id number] [Mass/Vol]3.3 g/dLNormal3.2-5.3PKeenan Private Hospital Comment on above:Performed By: #### CMP ####[facility] ([address] [place] [address] VIRALP [Catalytic activity/Vol]78 U/L Ouuqnj84-675TouHgfuriSt. Mary's Medical CenterComment on above:Performed By: #### CMP ####[facility] ([address], [place] [address] VIRALT [Catalytic activity/Vol]12 U/LNormal<=31PKeenan Private Hospital Comment on above:Performed By: #### CMP ####[address] [place] [address] VIRAnion gap [Moles/Vol]12 mmol/L Normal5-15St. Mary's Medical CenterComment on above:Performed By: #### CMP ####[address], [place] [address] VIRAST [Catalytic activity/Vol]16 U/LNormal<=41[facility] Comment on above:Performed By: #### CMP ####[facility] ([address] [address] VIRBilirubin [Mass/Vol]0.8 mg/dLNormal 0.3-1.2PKeenan Private HospitalComment on above:Performed By: #### CMP ####[facility] ([address], [place] [address] VIRCalcium [Mass/Vol]8.8 mg/dLNormal8.5-10.5PKeenan Private Hospital Comment on above:Performed By: #### CMP ####[facility] ([address] [place] [address] VIRChloride [Moles/Vol]97 mmol/LLow 98-109ProHca Houston Healthcare North CypressComment on above:Performed By: #### CMP ####[facility] ([facility])[address] [place] [address] AV.[place], [place] [address] VIRCO2 [Moles/Vol]32 mmol/ZBwmcgx84-36FgoCwkfkq [facility] HospitalComment on above:Performed By: #### CMP ####[facility] ([address] [place] [address] VIRCreatinine [Mass/Vol]0.70 mg/dLNormal 0.40-1.00ProHca Houston Healthcare North CypressComment on above:Result Comment: METHOD TRACEABLE TO IDMS STANDARDPerformed By: #### CMP ####[facility] ([address] [place] [address] VIREGFR (CKD-EPI) NON-RACE DEPENDENT>^90Normal>=60ProHca Houston Healthcare North CypressComment on above:Result Comment: eGFR not reported due to non-numeric value for Creatinine.Reported eGFR is based ontheCKD-EPI 2020 equation that doesnot use a race coefficient. Performed By: #### CMP ####[facility] ([address] [place] [address] VIRGlucose [Mass/Vol]194 mg/iUSqdi43-47XmeCdscrrHca Houston Healthcare North CypressComment on above:Performed By: #### CMP ####[facility] ([address] [place] [address] VIRPotassium [Moles/Vol]3.5 mmol/LNormal3.5-5.0ProHca Houston Healthcare North CypressComment on above: Performed By: #### CMP ####[facility] ([address] [place] [address] VIRProtein [Mass/Vol]6.4 g/dLNormal6.0-8.0ProWayne Hospitalca Elk Grove HospitalComment on above:Performed By: #### CMP ####[facility] ([address] [address] VIRSodium [Moles/Vol]141 mmol/MDgkxhp879-932SbyKmoyyw [facility] HospitalComment on above: Performed By: #### CMP ####[facility] HOSPITALAriana [address] [address] VIRUrea nitrogen [Mass/Vol]17 mg/dLNormal5-27 St[facility] Medical CenterComment on above:Performed By: #### CMP ####[facility]ITALA [address] [address] VIR Comprehensive metabolic panelon 76-87-9430Frlntyp [Mass/Vol]3.3 g/dL3.2 - 5.3 g/dLSt. John of God Hospital Health SystemALP [Catalytic activity/Vol]78 U/L39 - 130 U/L [facility] SystemALT No additional P-5'-P [Catalytic activity/Vol]12 U/L NINF - 31 U/LProMedica Health SystemAnion gap [Moles/Vol]12 mmol/L5 - 15 mmol/L [facility] Health SystemAST [Catalytic activity/Vol]16 U/LNINF - 41 U/LProMedica Health SystemBilirubin [Mass/Vol]0.8 mg/dL0.3 - 1.2 mg/dLCleveland Clinic [facility]'s [facility] System Calcium [Mass/Vol]8.8 mg/dL8.5 - 10.5 mg/dLCleveland Clinic Children's Hospital for Rehabilitation SystemChloride [Moles/Vol]97 mmol/LLow98 - 109 mmol/LProMedica Health SystemCO2 [Moles/Vol]32 mmol/L22 - 32 mmol/LProMedica Health SystemCreatinine [Mass/Vol]0.7 mg/dL0.40 - 1.00 mg/dLUC [facility] HospitalComment on above:METHOD TRACEABLE TO IDMS STANDARDEGFR Non-Race Dependent- [facility] HospitalComment on above: eGFR not reported due to non-numeric value for Creatinine. Reported eGFR is based on the CKD-EPI 2020 equation that does not use a race coefficient. Glucose [Mass/Vol]194 mg/kFAesd48 - 99 mg/dLUC [facility] Interpretation and review of laboratory resultsAbnormWright-Patterson Medical Center Potassium [Moles/Vol]3.5 mmol/L3.5 - 5.0 mmol/LProMedSelect Medical OhioHealth Rehabilitation Hospital SystemProtein [Mass/Vol]6.4 g/dL6.0 - 8.0 g/dLNovant Health Huntersville Medical Centerodium [Moles/Vol]141 mmol/L134 - 146 mmol/LProMedica Dayton Osteopathic Hospital SystemUrea nitrogen [Mass/Vol]17 mg/dL5 - 27 mg/dLUC [facility] HospitalLight Blue Topon 54-39-3226Sshrr TubeAuto ResultedThomas Jefferson University HospitalMAGNESIUMon 01-01-2025 Magnesium [Mass/Vol]2.1 mg/dLNormal1.8-2.6St. [facility] Medical CenterComment on above:Performed By: #### MG ####[facility] ([address] [address] VIRMagnesiumon 63-79-1740Dgqmetnuysavrm and review of laboratory resultsNormalC[facility] SystemMagnesium [Mass/Vol]2.1 mg/dL1.8 - 2.6 mg/dLUC [facility] HospitalNo Panel Informationon 01-01-2025 [facility] HospitalPOTASSIUMon 50-56-4006Kyafubkfm [Moles/Vol]4.3 mmol/L Normal3.5-5.0St. [facility] Medical CenterComment on above:Performed By: #### K ####[facility] ([address] [address] VIRPotassiumon 57-42-9435Kioidfqpwtpgms and review of laboratory results NormalUC [facility] HospitalPotassium [Moles/Vol]4.3 mmol/L3.5 - 5.0 mmol/L [facility] HospitalBEDSIDE GLUCOSEon 12-31-2024 Glucose [Mass/Vol]189 mg/yKLkir00-60LaiEcxzfdSt. Mary's Medical CenterComment on above: Performed By: #### BEDG ####[facility] ([facility])[address], [id number] VIRGlucose [Mass/Vol]242 mg/rMYezl96-77PdbAqhrahSt. Mary's Medical CenterComment on above:Performed By: #### BEDG ####[facility] ([facility])[address], [id number] VIRGlucose [Mass/Vol] 321 mg/dRJvfj83-09TnwLgiasnHca Houston Healthcare North CypressComment on above:Performed By: #### BEDG ####[facility] ([facility])[address] [place], [place] [address]E.[place] [address] VIRBedside Glucose *Place/Obtain serum glucose if >500 per glucometer.on 21-06-4974Ipyemui [Mass/Vol]198 mg/yZUgjl91 - 99 mg/dLUC [facility] Interpretation and review of laboratory resultsAbnoFormerly named [facility] CenterCBC WITH AUTO DIFFERENTIALon 22-36-3887AOYDEGJSR ABSOLUTE COUNT (10*3/UL) BY AUTOMATED COUNT0.0 10*3/uLNormal0.0-0.2PLicking Memorial Hospital on above:Result Comment: This is an appended report. These results have been appended to a previously preliminary verified report.Performed By: #### CBCA ####[facility] ([facility])[address], [id number] VIRBASOPHILS RELATIVE PERCENT BY AUTOMATED COUNT0.4 %Normal [facility] on above:Result Comment: This is an appended report. These results have been appended to a previously preliminary verified report.Performed By: #### CBCA ####[facility] ([facility])[address] [place], [place] [address]E.[place], [id number] VIRCELLAVISION ANISOCYTOSIS IN BLOOD BY LIGHT MICROSCOPY2+NormalMercer County Community Hospital on above:Result Comment: This is an appended report. These results have been appended to a previously preliminary verified report.Performed By: #### CBCA ####[facility] ([address], [id number] VIRCELLAVISION DIFFERENTIAL TYPEAUTOMATED DIFFERENTIALNormalMercer County Community Hospital on above:Result Comment: This is an appended report. These results have been appended to a previously preliminary verified report.Performed By: #### CBCA ####[facility] ([address], [id number] VIRCELLAVISION HYPOCHROMIA IN BLOOD BY LIGHT MICROSCOPY2+NormalSt. Mary's Medical CenterComchelsea hospital on above:Result Comment: This is an appended report. These results have been appended to a previously preliminary verified report. Performed By: #### CBCA ####[address], [id number] VIRCELLAVISION RBC MORPHOLOGYReviewedNormalSt. Mary's Medical CenterComchelsea hospital on above:Result Comment: This is an appended report. These results have been appended to a previously preliminary verified report. Performed By: #### CBCA ####[facility] ([address], [id number] VIREosinophils (Bld) [#/Vol]0.0 10*3/uLNormal0.0-0.4 [facility] on above:Result Comment: This is an appended report. These results have been appended to a previously preliminary verified report.Performed By: #### CBCA ####[facility] ([address], [id number] VIREOSINOPHILS RELATIVE PERCENT BY AUTOMATED COUNT0.2 %[facility] CenterComchelsea hospital on above:Result Comment: This is an appended report. These results have been appended to a previously prelimi nary verified report.Performed By: #### CBCA ####[facility] ([address], [id number] VIRErythrocyte distribution width (RBC) [Ratio]23.3 %High11.5-15St. [facility]'s Medical CenterComment on above: Performed By: #### CBCA ####[facility] ([facility])[address] [place] [address].[place], [id number] VIRHematocrit (Bld) [Volume fraction]33.6 %Yzi57-56 St[facility]'s Medical CenterComment on above:Performed By: #### CBCA ####[facility] HOSPITALAriana [facility] ([facility])[address] [place] [address].[place], [id number] VIRHemoglobin (Bld) [Mass/Vol]10.6 g/dLLow11.7-15.5PKeenan Private HospitalComment on above: Performed By: #### CBCA ####[facility] ([address], [id number] VIRLYMPHOCYTES ABSOLUTE COUNT (10*3/UL) BY AUTOMATED COUNT0.5 10*3/uLLow1.0-3.5PKeenan Private HospitalComment on above:Result Comment: This is an appended report. These results have been appended to a previously preliminary verified report.Performed By: #### CBCA ####[facility] ([address], [id number] VIR LYMPHOCYTES RELATIVE PERCENT BY AUTOMATED COUNT9.2 %NormalProHca Houston Healthcare North CypressComchelsea hospital on above:Result Comment: This is an appended report. These results have been appended to a previously preliminary verified report.Performed By: #### CBCA ####[facility] ([facility])[address] [place] [address], [id number] VIRMCH (RBC) [Entitic mass]25.9 nhLhq00-28LvcZtatsqSt. Mary's Medical CenterComment on above:Performed By: #### CBCA ####[facility] ([address], [id number] VIRMCHC (RBC) [Mass/Vol]31.4 g/dLWuw12-66ZdfVnnrhpHca Houston Healthcare North CypressComment on above:Performed By: #### CBCA ####[facility]OS[facility]ITALAriana [facility] ([facility])[address] [place] [address], [id number] VIRMCV (RBC) [Entitic vol]83 hPZucvxg84-612LzcHbugpy [facility] HospitalComment on above:Performed By: #### CBCA ####[facility] ([facility])[address] [place] [address], [id number] VIRMONOCYTES ABSOLUTE COUNT (10*3/UL) BY AUTOMATED COUNT0.0 10*3/uLNormal0.0-0.9St. Mary's Medical CenterComchelsea hospital on above:Result Comment: This is an appended report. These results have been appended to a previously preliminary verified report.Performed By: #### CBCA ####[facility]OS[facility]ITALAriana [facility] ([address], [id number] VIRMONOCYTES RELATIVE PERCENT BY AUTOMATED COUNT0.8 %NormalProHca Houston Healthcare North CypressComment on above:Result Comment: This is an appended report. These results have been appended to a previously preliminary verified report.Performed By: #### CBCA ####[facility]ITALAriana [facility] ([address], [id number] VIRNEUTROPHILS ABSOLUTE COUNT BY AUTOMATED COUNT4.5 10*3/uL Normal1.5-6.6St. Mary's Medical CenterComment on above:Result Comment: This is an appended report. These results have been appended to a previously preliminary verified report.Performed By: #### CBCA ####[facility] ([address], [id number] VIRNEUTROPHILS RELATIVE PERCENT BY AUTOMATED COUNT89.4 %NormalProHca Houston Healthcare North CypressComment on above:Result Comment: This is an appended report. These results have been appended to a previously preliminary verified report.Performed By: #### CBCA ####[facility] ([facility])[address] [place] [address] AVE.[place], [id number] VIRPlatelet mean volume (Bld) [Entitic vol]7.3 fLNormal7-12PKeenan Private HospitalComment on above:Performed By: #### CBCA ####[facility] ([address], [id number] VIRPlatelets (Bld) [#/Vol]282 10*3/uL Ovndez892-586SapOlmdacHca Houston Healthcare North CypressComment on above:Performed By: #### CBCA ####[facility] ([facility])[address] [place] [address].[place], [id number] VIRRBC COUNT4.08 X10E12/LNormal3.8-5.2PKeenan Private HospitalComment on above:Performed By: #### CBCA ####[facility] ([address], [id number] VIRWBC (Bld) [#/Vol]5.0 10*3/uLNormal4-11 [facility] Medical CenterComment on above:Performed By: #### CBCA ####[facility] ([facility])[address] [place] [address].[place], [id number] VIRCBC auto differentialon 74-75-3506Fxmxqieztbcc Ql (Bld)2+[facility] HospitalComment on above:This is an appended report. These results have been appended to a previously preliminary verified report.Basophils (Bld) [#/Vol]0 10*3/uL0.0 - 0.2 10*3/uLUC [facility] HospitalComment on above:This is an appended report. These results have been appended to a previously preliminary verified report. Basophils/100 WBC (Bld)0.4 %[facility] HospitalComment on above:This is an appended report. These results have been appended to a previously preliminary verified report.Differential cell count method Nom (Bld)AUTOMATED DIFFERENTIAL [facility] HospitalComment on above:This is an appended report. These results have been appended to a previously preliminary verified report. Eosinophils (Bld) [#/Vol]0 10*3/uL0.0 - 0.4 10*3/uLUC [facility] Comment on above:This is an appended report. These results have been appended to a previously preliminary verified report.Eosinophils/100 WBC (Bld)0.2 % [facility] HospitalComment on above:This is an appended report. These results have been appended to a previously preliminary verified report. Erythrocyte distribution width (RBC) [Ratio]23.3 %High11.5 - 15 %[facility] HospitalHematocrit (Bld) [Volume fraction]33.6 %Low35 - 47 %[facility] HospitalHemoglobin (Bld) [Mass/Vol]10.6 g/dLLow11.7 - 15.5 g/dLUC [facility] HospitalHypochromia Ql (Bld)2+[facility] HospitalComment on above:This is an appended report. These results have been appended to a previously preliminary verified report.Interpretation and review of laboratory results AbnormalUC West Chester HospitalLymphocytes (Bld) [#/Vol]0.5 10*3/uLLow1.0 - 3.5 10*3/uLUC [facility] HospitalComment on above:This is an appended report. These results have been appended to a previously preliminary verified report. Lymphocytes/100 WBC (Bld)9.2 %[facility] HospitalComment on above:This is an appended report. These results have been appended to a previously preliminary verified report.MCH (RBC) [Entitic mass]25.9 pgLow27 - 34 [facility] EastMCHC (RBC) [Mass/Vol]31.4 g/dLLow32 - 36 g/dLUC West [facility] HospitalMCV (RBC) [Entitic vol]83 fL80 - 100 [facility] springfieldMonocytes (Bld) [#/Vol]0 10*3/uL0.0 - 0.9 10*3/uLUC [facility] HospitalComment on above:This is an appended report. These results have been appended to a previously preliminary verified report.Monocytes/100 WBC (Bld)0.8 %[facility] Comment on above:This is an appended report. These results have been appended to a previously preliminary verified report.Neutrophils (Bld) [#/Vol]4.5 10*3/uL 1.5 - 6.6 10*3/[facility] CenterComment on above:This is an appended report. These results have been appended to a previously preliminary verified re port.Neutrophils/100 WBC (Bld)89.4 %[facility] HospitalComment on above:This is an appended report. These results have been appended to a previously preliminary verified report.Platelet mean volume (Bld) [Entitic vol]7.3 fL7 - 12 [facility] springfieldPlatelets (Bld) [#/Vol]282 10*3/[facility] Medical CenterRBC (Bld) [#/Vol]4.08 10*6/[facility] (Bld) [#/Vol] ReviewedUC West [facility] HospitalComment on above:This is an appended report. These results have been appended to a previously preliminary verified report.WBC LM Ql (Sput)5PWellSpan Surgery & Rehabilitation HospitalCOMPREHENSIVE METABOLIC PANELon 47-81-7006Fnrazny [Mass/Vol]3.1 g/dLLow3.2-5.3PKeenan Private HospitalComment on above:Performed By: #### CMP ####[facility] ([facility])[address] [place] [address] [place] [address] VIRALP [Catalytic activity/Vol]81 U/XMqrfsf47-173QesKuqtenSt. Mary's Medical CenterComment on above: Performed By: #### CMP ####[facility] ([facility])[address] [place] [address] [place] [address] VIRALT [Catalytic activity/Vol]12 U/LNormal<=31 [facility] Medical CenterComment on above:Performed By: #### CMP ####[facility] ([address] [place] [address] VIRAnion gap [Moles/Vol]13 mmol/LNormal5-15St. [facility]'s Medical CenterComment on above: Performed By: #### CMP ####[facility] ([address] [place] [address] VIRAST [Catalytic activity/Vol]13 U/LNormal<=41 [facility] Medical CenterComment on above:Performed By: #### CMP ####[facility] ([address] [place] [address] VIRBilirubin [Mass/Vol]0.8 mg/dLNormal0.3-1.2PKeenan Private HospitalComment on above: Performed By: #### CMP ####[facility] ([address] [place] [address] VIRCalcium [Mass/Vol]8.1 mg/dLLow8.5-10.5PKeenan Private HospitalComment on above:Performed By: #### CMP ####[facility] ([address] [address] VIRChloride [Moles/Vol]96 mmol/ADed48-307AtdEuplekHca Houston Healthcare North CypressComment on above: Performed By: #### CMP ####[facility] ([address] [place] [address] VIRCO2 [Moles/Vol]29 mmol/OEpwzys47-90YlbNspnhbKeenan Private HospitalComment on above:Performed By: #### CMP ####[facility] ([address] [place] [address] VIRCreatinine [Mass/Vol]0.65 mg/dLNormal0.40-1.00ProHca Houston Healthcare North CypressComment on above: Result Comment: METHOD TRACEABLE TO IDMS STANDARDPerformed By: #### CMP ####[facility] ([address], [place] [address] VIREGFR (CKD-EPI) NON-RACE DEPENDENT>^90Normal>=60ProHca Houston Healthcare North CypressComment on above:Result Comment: eGFR not reported due to non-numeric value for Creatinine.Reported eGFR is based ontheCKD-EPI 2020 equation that doesnot use a race coefficient.Performed By: #### CMP ####[facility] ([address] [place] [address] VIRGlucose [Mass/Vol]182 mg/cIWxzn11-20PjmMrfncmHca Houston Healthcare North CypressComment on above:Performed By: #### CMP ####[facility] ([address] [place] [address] VIRPotassium [Moles/Vol]2.8 mmol/LLow3.5-5.0St. [facility]'s Medical CenterComment on above:Performed By: #### CMP ####[facility] ([address] [place] [address] VIRProtein [Mass/Vol]5.9 g/dLLow6.0-8.0ProHca [facility] Healthcare North CypressComment on above:Performed By: #### CMP ####[facility] ([address] [place] [address] VIRSodium [Moles/Vol]138 mmol/KQqtnas548-351IgyAsvzgv [facility] HospitalComment on above:Performed By: #### CMP ####[facility] ([address] [place] [address] VIRUrea nitrogen [Mass/Vol]13 mg/dLNormal5-27ProHca [facility] Healthcare North CypressComment on above:Performed By: #### CMP ####[facility] ([address] [place] [address] VIRComprehensive metabolic panelon 61-17-6825Fxsfpix [Mass/Vol]3.1 g/dLLow3.2 - 5.3 g/dLProUpper Valley Medical Center SystemALP [Catalytic activity/Vol]81 U/L39 - 130 U/LProMedSalem Regional Medical CenterALT No additional P-5'-P [Catalytic activity/Vol]12 U/LNINF - 31 U/LProMedica Health SystemAnion gap [Moles/Vol]13 mmol/L5 - 15 mmol/LProMedica Health SystemAST [Catalytic activity/Vol]13 U/LNINF - 41 U/LProMedica Health SystemBilirubin [Mass/Vol]0.8 mg/dL0.3 - 1.2 mg/dLProUpper Valley Medical Center SystemCalcium [Mass/Vol]8.1 mg/dLLow8.5 - 10.5 mg/dLProAtrium Health Floyd Cherokee [facility] SystemChloride [Moles/Vol]96 mmol/LLow98 - 109 mmol/L [facility] HospitalCO2 [Moles/Vol]29 mmol/L22 - 32 mmol/LPrPeak View Behavioral Health Health SystemCreatinine [Mass/Vol]0.65 mg/dL0.40 - 1.00 mg/dLCleveland Clinic Children's Hospital for Rehabilitation System Comment on above:METHOD TRACEABLE TO IDMS STANDARDEGFR Non-Race Dependent- PINF [facility] HospitalComment on above:eGFR not reported due to non-numeric value for Creatinine. Reported eGFR is based on the CKD-EPI 2020 equation that does not use a race coefficient. Glucose [Mass/Vol]182 mg/lNIljv45 - 99 mg/dLUC [facility] Interpretation and review of laboratory resultsAbnormalProUpper Valley Medical Center System Potassium [Moles/Vol]2.8 mmol/LLow3.5 - 5.0 mmol/LPrSaint Alexius Hospitalica Health SystemProtein [Mass/Vol]5.9 g/dLLow6.0 - 8.0 g/dLCleveland Clinic Children's Hospital for Rehabilitation SystemSodium [Moles/Vol]138 mmol/L134 - 146 mmol/[facility]ica Health SystemUrea nitrogen [Mass/Vol]13 mg/dL5 - 27 mg/dLCleveland Clinic Children's Hospital for Rehabilitation SystemMAGNESIUMon 27-85-3008Pimbnoscw [Mass/Vol]2.0 mg/dLNormal1.8-2.6St. [facility] Medical CenterComment on above:Performed By: #### MG ####[facility]ITALEDICL[facility] ([address] [place] [address] VIRMagnesiumon 07-60-3005Qwfxoudqhxygll and review of laboratory results NormalProMedica Health SystemMagnesium [Mass/Vol]2 mg/dL1.8 - 2.6 mg/dLCleveland Clinic Children's Hospital for Rehabilitation SystemNo Panel Informationon 75-20-3878SvbDccrxu Health SystemPOTASSIUM on 76-48-8806Xacdcdklb [Moles/Vol]3.3 mmol/LLow3.5-5.0[facility] Comment on above:Performed By: #### K ####[facility]ITALAriana [facility] ([facility])[address] [place] [address] VIRPotassium [Moles/Vol]3.1 mmol/LLow 3.5-5.0St. [facility]'s Medical CenterComment on above:Performed By: #### K ####[facility] ([facility])[address] [place] [address] VIRPotassiumon 56-34-9016Zlrpevyoislqqf and review of laboratory results AbnormalProAtrium Health Floyd [facility] Health SystemPotassium [Moles/Vol]3.3 mmol/LLow3.5 - 5.0 mmol/LProMedica Health SystemProAtrium Health Floyd [facility] Health SystemInterpretation and review of laboratory resultsAbnormalSt. John of God Hospital Health SystemPotassium [Moles/Vol]3.1 mmol/LLow3.5 - 5.0 mmol/LProMedica Health SystemSt. John of God Hospital Health SystemAPTTon 61-98-9728qAIL Coag (PPP) [Time]32 sPrPremier Health Miami Valley Hospital South SystemInterpretation and review of laboratory resultsNormalCleveland Clinic Children's Hospital for Rehabilitation SystemaPTT Coag (Bld) [Time] 32 qAshmmq75-35DfsIhzqslHca Houston Healthcare North CypressComment on above:Performed By: #### PTT ####[facility] ([facility])[address] [place] [address] VIRB-TYPE NATRIURETIC PEPTIDEon 11-67-6708Eprtohwmvvi peptide B (Bld) [Mass/Vol]248 pg/mLHigh<=100St. [facility]'s Medical CenterComment on above:Performed By: #### BNP ####[facility] ([facility])[address] [place] [address] VIRB-type natriuretic peptideon 11-46-0811Kkphhpeppuveip and review of laboratory resultsAbnormWright-Patterson Medical CenterNatriuretic peptide B (Bld) [Mass/Vol]248 pg/mLHighNINF - 100 pg/mLSt. Mary Rehabilitation HospitalBEDSIDE GLUCOSEon 10-75-6654Mscaxpq [Mass/Vol]198 mg/dL Wpah01-55WznAqnkhvMercer County Community Hospital on above:Performed By: #### BEDG ####[facility] ([facility])[address] [facility], [id number] VIRCBC WITH AUTO DIFFERENTIALon 47-43-4251ESNIGADXN ABSOLUTE COUNT (10*3/UL) BY AUTOMATED COUNT0.0 10*3/uLNormal0.0-0.2ProMedBarlow Respiratory Hospital on above:Result Comment: This is an appended report. These results have been appended to a previously preliminary verified report.Performed By: #### CBCA ####[facility] ([facility])[address] [place] [address], [id number] VIRBASOPHILS RELATIVE PERCENT BY AUTOMATED COUNT0.2 %NormalMercer County Community Hospital on above:Result Comment: This is an appended report. These results have been appended to a previously preliminary verified report.Performed By: #### CBCA ####[facility] ([address], [id number] VIRCELLAVISION ANISOCYTOSIS IN BLOOD BY LIGHT MICROSCOPY2+ NormalMercer County Community Hospital on above:Result Comment: This is an appended report. These results have been appended to a previously preliminary verified report.Performed By: #### CBCA ####[facility] ([address], [id number] VIRCELLAVISION DIFFERENTIAL TYPE AUTOMATED DIFFERENTIALNormalMercer County Community Hospital on above:Result Comment: This is an appended report. These results have been appended to a previously preliminary verified report.Performed By: #### CBCA ####[facility] ([facility])[address] [place] [address], [id number] VIR CELLAVISION ELLIPTOCYTES IN BLOOD BY LIGHT MICROSCOPY1+[facility] on above:Result Comment: This is an appended report. These results have been appended to a previously preliminary verified report.Performed By: #### CBCA ####[facility] ([address], [id number] VIREosinophils (Bld) [#/Vol]0.2 10*3/uLNormal0.0-0.4 [facility] on above:Result Comment: This is an appended report. These results have been appended to a previously preliminary verified report.Performed By: #### CBCA ####[address], [id number] VIREOSINOPHILS RELATIVE PERCENT BY AUTOMATED COUNT2.3 %NormalSt. Mary's Medical CenterComchelsea hospital on above:Result Comment: This is an appended report. These results have been appended to a previously prelimi nary verified report.Performed By: #### CBCA ####[facility] ([address], [id number] VIRErythrocyte distribution width (RBC) [Ratio]23.8 %High11.5-15St. Mary's Medical CenterComment on above: Performed By: #### CBCA ####[facility] ([address], [id number] VIRHematocrit (Bld) [Volume fraction]35.3 %Usqouc56-02 [facility] Medical CenterComchelsea hospital on above:Performed By: #### CBCA ####[facility] ([address], [id number] VIRHemoglobin (Bld) [Mass/Vol]11.0 g/dLLow11.7-15.5PKeenan Private HospitalComment on above: Performed By: #### CBCA ####[facility] ([address], [id number] VIRLYMPHOCYTES ABSOLUTE COUNT (10*3/UL) BY AUTOMATED COUNT0.4 10*3/uLLow1.0-3.5PKeenan Private HospitalComment on above:Result Comment: This is an appended report. These results have been appended to a previously preliminary verified report.Performed By: #### CBCA ####[facility] ([address], [id number] VIR LYMPHOCYTES RELATIVE PERCENT BY AUTOMATED COUNT5.4 %NormalProHca Houston Healthcare North CypressComment on above:Result Comment: This is an appended report. These results have been appended to a previously preliminary verified report.Performed By: #### CBCA ####[facility] ([address], [id number] VIRMCH (RBC) [Entitic mass]25.9 xlKqo64-31GioJudhloHca Houston Healthcare North CypressComment on above:Performed By: #### CBCA ####[facility] ([address], [id number] VIRMCHC (RBC) [Mass/Vol]31.2 g/cHFvk95-11CuwBexjqsSt. Mary's Medical CenterComment on above:Performed By: #### CBCA ####[facility] ([address], [id number] VIRMCV (RBC) [Entitic vol]83 kOYqovqn84-877IreEvizyk [facility]remont HospitalComment on above:Performed By: #### CBCA ####[facility] ([address], [id number] VIRMONOCYTES ABSOLUTE COUNT (10*3/UL) BY AUTOMATED COUNT0.2 10*3/uLNormal0.0-0.9St. [facility] Medical CenterComchelsea hospital on above:Result Comment: This is an appended report. These results have been appended to a previously preliminary verified report.Performed By: #### CBCA ####[facility] ([facility])[address] [place] [address], [id number] VIRMONOCYTES RELATIVE PERCENT BY AUTOMATED COUNT3.3 %NormalSt. Mary's Medical CenterComchelsea hospital on above:Result Comment: This is an appended report. These results have been appended to a previously preliminary verified report.Performed By: #### CBCA ####[facility] ([address], [id number] VIRNEUTROPHILS ABSOLUTE COUNT BY AUTOMATED COUNT6.5 10*3/uL Normal1.5-6.6St. [facility] Medical CenterComchelsea hospital on above:Result Comment: This is an appended report. These results have been appended to a previously preliminary verified report.Performed By: #### CBCA ####[facility] ([address], [id number] VIRNEUTROPHILS RELATIVE PERCENT BY AUTOMATED COUNT88.8 %NormalSt. Mary's Medical CenterComment on above:Result Comment: This is an appended report. These results have been appended to a previously preliminary verified report.Performed By: #### CBCA ####[facility]OS[facility]ITALAriana [facility] ([address], [id number] VIRPlatelet mean volume (Bld) [Entitic vol]7.2 fLNormal7-12ProMedica Miller Children'S HospitalComment on above:Performed By: #### CBCA ####[facility] ([address], [id number] VIRPlatelets (Bld) [#/Vol]276 10*3/uL Dlqawi470-945UqxPykduoHca Houston Healthcare North CypressComment on above:Performed By: #### CBCA ####[facility] ([facility])[address] [place] [address].[place], [id number] VIRRBC COUNT4.26 X10E12/LNormal3.8-5.2ProMedica Miller Children'S HospitalComment on above:Performed By: #### CBCA ####[facility] ([facility])[address] [place] [address], [id number] VIRWBC (Bld) [#/Vol]7.3 10*3/uLNormal4-11 [facility] Medical CenterComment on above:Performed By: #### CBCA ####[facility] ([facility])[address] [place] [address], [id number] VIRCBC auto differentialon 50-38-6940Tljpcwimiilq Ql (Bld)2+[facility] HospitalComment on above:This is an appended report. These results have been appended to a previously preliminary verified report.Basophils (Bld) [#/Vol]0 10*3/uL0.0 - 0.2 10*3/uLProUpper Valley Medical Center SystemComment on above:This is an appended report. These results have been appended to a previously preliminary verified report. Basophils/100 WBC (Bld)0.2 %[facility] HospitalComment on above:This is an appended report. These results have been appended to a previously preliminary verified report.Differential cell count method Nom (Bld)AUTOMATED DIFFERENTIAL [facility] HospitalComment on above:This is an appended report. These results have been appended to a previously preliminary verified report. Elliptocytes LM Ql (Bld)1+[facility] SystemComment on above:This is an appended report. These results have been appended to a previously preliminary verified report.Eosinophils (Bld) [#/Vol]0.2 10*3/uL0.0 - 0.4 10*3/uLProWayne Hospitalca Dayton Osteopathic Hospital SystemComment on above:This is an appended report. These results have been appended to a previously preliminary verified report.Eosinophils/100 WBC (Bld)2.3 %[facility] HospitalComment on above:This is an appended report. These results have been appended to a previously preliminary verified report. Erythrocyte distribution width (RBC) [Ratio]23.8 %High11.5 - 15 %ProMedica Health SystemHematocrit (Bld) [Volume fraction]35.3 %35 - 47 %[facility] HospitalHemoglobin (Bld) [Mass/Vol]11 g/dLLow11.7 - 15.5 g/dLUC [facility] HospitalInterpretation and review of laboratory resultsAbnormalUC West Chester HospitalLymphocytes (Bld) [#/Vol]0.4 10*3/uLLow1.0 - 3.5 10*3/uLCleveland Clinic Children's Hospital for Rehabilitation SystemComment on above:This is an appended report. These results have been appended to a previously preliminary verified report.Lymphocytes/100 WBC (Bld) 5.4 %[facility] HospitalComment on above:This is an appended report. These results have been appended to a previously preliminary verified report.MCH (RBC) [Entitic mass]25.9 pgLow27 - 34 [facility] EastMCHC (RBC) [Mass/Vol] 31.2 g/dLLow32 - 36 g/dLUC West Chester HospitalMCV (RBC) [Entitic vol]83 fL80 - 100 [facility] springfieldMonocytes (Bld) [#/Vol]0.2 10*3/uL0.0 - 0.9 10*3/uL [facility] HospitalComment on above:This is an appended report. These results have been appended to a previously preliminary verified report. Monocytes/100 WBC (Bld)3.3 %[facility] HospitalComment on above:This is an appended report. These results have been appended to a previously preliminary verified report.Neutrophils (Bld) [#/Vol]6.5 10*3/uL1.5 - 6.6 10*3/uLUC [facility] HospitalComment on above:This is an appended report. These results have been appended to a previously preliminary verified report.Neutrophils/100 WBC (Bld)88.8 %[facility] HospitalComment on above:This is an appended report. These results have been appended to a previously preliminary verified report. Platelet mean volume (Bld) [Entitic vol]7.2 fL7 - 12 [facility] Platelets (Bld) [#/Vol]276 10*3/uLUC [facility] HospitalRBC (Bld) [#/Vol]4.26 10*6/uLUC [facility] HospitalWBC LM Ql (Sput)7.3PRoxbury Treatment CenterCOMPREHENSIVE METABOLIC PANELon 06-44-5475Gdporhx [Mass/Vol]3.4 g/dLNormal3.2-5.3PKeenan Private HospitalComment on above: Performed By: #### CMP ####[facility] ([facility])[address] [place], [place] [address] [address] VIRALP [Catalytic activity/Vol]87 U/NLhdsie47-465 [facility] Medical CenterComment on above:Performed By: #### CMP ####[facility] ([address] [place] [address] VIRALT [Catalytic activity/Vol]14 U/LNormal<=31PKeenan Private HospitalComment on above:Performed By: #### CMP ####[facility] ([address] [place] [address] VIRAnion gap [Moles/Vol]12 mmol/LNormal5-15 [facility] Medical CenterComment on above:Performed By: #### CMP ####[facility] ([address] [place] [address] VIRAST [Catalytic activity/Vol]18 U/LNormal<=41St. [facility]'s Medical CenterComment on above:Performed By: #### CMP ####[facility] ([address] [place] [address] VIRBilirubin [Mass/Vol]0.9 mg/dLNormal0.3-1.2 [facility] Medical CenterComment on above:Performed By: #### CMP ####[facility] ([address] [place] [address] VIRCalcium [Mass/Vol]8.2 mg/dLLow8.5-10.5PKeenan Private HospitalComment on above: Performed By: #### CMP ####[facility] ([address] [place] [address] VIRChloride [Moles/Vol]93 mmol/BXmz07-989DgwPvosbsHca Houston Healthcare North CypressComment on above:Performed By: #### CMP ####[facility] ([address] [place] [address] VIRCO2 [Moles/Vol]29 mmol/QXeoqif31-21QtyUpirog Miller Children'S HospitalComment on above:Performed By: #### CMP ####[facility] ([address] [place] [address] VIRCreatinine [Mass/Vol]0.87 mg/dLNormal0.40-1.00St. [facility] Medical CenterComment on above:Result Comment: METHOD TRACEABLE TO IDMS STANDARD Performed By: #### CMP ####[facility] ([address] [address] VIRGFR/1.73 sq M.predicted among non-blacks MDRD (S/P/Bld) [Vol rate/Area]74 mL/min/{1.73_m2}Normal>=60[facility] Comment on above:Result Comment: eGFR not reported due to non-numeric value for Creatinine.Reported eGFR is based ontheCKD-EPI 1 equation that doesnot use a race coefficient.Performed By: #### CMP ####[facility] ([address] [place] [address] VIRGlucose [Mass/Vol]216 mg/dLHigh 65-99ProHca Houston Healthcare North CypressComment on above:Performed By: #### CMP ####[facility] ([address] [address] VIRPotassium [Moles/Vol]2.8 mmol/LLow3.5-5.0[facility] Comment on above:Performed By: #### CMP ####[facility])[address] [place] [address] VIRProtein [Mass/Vol]6.3 g/dLNormal 6.0-8.0[facility] Medical CenterComment on above:Performed By: #### CMP ####[facility] ([facility])[address], [place] [address] VIRSodium [Moles/Vol]134 mmol/AWjrqtt446-546HqaEvawxd [facility] Comment on above:Performed By: #### CMP ####[facility] ([facility])[address] [place] [address] [place] [address] VIRUrea nitrogen [Mass/Vol]17 mg/dL Normal5-27ProHca Houston Healthcare North CypressComment on above:Performed By: #### CMP ####[address], [place] [address] VIRCT CTA CHESTon 63-22-2046LG CTA CHESTNormalProHca Houston Healthcare North CypressCT Chest WO and CT angiogram Coronary arteries W contrast Atiya [id number] CTA CHEST CLINICAL INFORMATION: elevated dimer, hypoxia COMPARISON: 12/30/2024, 07/25/2024 PROCEDURE: Routine CT pulmonary angiogram obtained after the uncomplicated intravenous administration of contrast. 3-D maximum intensity projection coronal and sagittal reformatted images generated and reviewed. All CT scans at this facility use dose modulation, iterative reconstruction, and/or weight based dosing when appropriate to reduce radiation dose to as low as reasonably achievable. FINDINGS: Interlobular septal thickening, fibrosis. Some areas of peripheral scarring noted. Chronic consolidation in the lingula. No effusions. Prominent atherosclerotic calcifications in the aorta. Severe qawalangin coronary artery calcifications. There is prominence of the pulmonary arteries, which could relate to pulmonary artery hypertension with mild cardiomegaly and trace pericardial effusion. There is no visualized acute pulmonary embolism. Streak artifact degrades assessment of the segmental and subsegmental vessels. Right renal atrophy. Mildly prominent lymph nodes in the mediastinum with enlarged precarinal and right anterior tracheal lymph nodes similar to prior examination. Thyroid calcification present. Someedema in the soft tissues. Degenerative changes are present. Old rib deformities. IMPRESSION: * No evidence of acute pulmonary embolism, findings concerning for pulmonary artery hypertension. * Septal thickening, findings could relate to mild vascular congestion. Scarring and minimal consolidation. * Cardiomegaly. * Unchanged mediastinal and hilar adenopathy. Attention on follow-up studies recommended. Finalized by Artur Rosen MD on 12/30/2024 5:07 PMSECTRAPAArtur Rosen MD - 12/30/2024 CT CTA CHEST CLINICAL INFORMATION: elevated dimer, hypoxia COMPARISON: 12/30/2024, 07/25/2024 PROCEDURE: Routine CT pulmonary angiogram obtained after the uncomplicated intravenous administration of contrast. 3-D maximum intensity projection coronal and sagittal reformatted images generated and reviewed. All CT scans at this facility use dose modulation, iterative reconstruction, and/or weight based dosing when appropriate to reduce radiation dose to as low as reasonably achievable. FINDINGS: Interlobular septal thickening, fibrosis. Some areas of peripheral scarring noted. Chronic consolidation in the lingula. No effusions. Prominent atherosclerotic calcifications in the aorta. Severe qawalangin coronary artery calcifications. There is prominence of the pulmonary arteries, which could relate to pulmonary artery hypertension with mild cardiomegaly and trace pericardial effusion. There is no visualized acute pulmonary embolism. Streak artifact degrades assessment of the segmental and subsegmental vessels. Right renal atrophy. Mildly prominent lymph nodes in the mediastinum with enlarged precarinal and right anterior tracheal lymph nodes similar to prior examination. Thyroid calcification present. Someedema in the soft tissues. Degenerative changes are present. Old rib deformities. IMPRESSION: * No evidence of acute pulmonary embolism, findings concerning for pulmonary artery hypertension. * Septal thickening, findings could relate to mild vascular congestion. Scarring and minimal consolidation. * Cardiomegaly. * Unchanged mediastinal and hilar adenopathy. Attention on follow-up studies recommended. Finalized by Artur Rosen MD on 12/30/2024 5:07 PM ShoptagrRadiology Study observation (narrative)[facility] Park HospitalGem Pharmaceuticals SystemCT Chest WO and CT angiogram Coronary arteries W contrast IVOrdered By: Artur Rosen on 70-56-7419PuvCfrpelCoursmos Work Phone: Comprehensive metabolic panelon 99-46-7378Ahjlqjq [Mass/Vol]3.4 g/dL3.2 - 5.3 g/dLCleveland Clinic Children's Hospital for Rehabilitation SystemALP [Catalytic activity/Vol]87 U/L39 - 130 U/[facility] SystemALT No additional P-5'-P [Catalytic activity/Vol]14 U/LNINF - 31 U/[facility] SystemAnion gap [Moles/Vol]12 mmol/L5 - 15 mmol/LPrPeak View Behavioral Health Health SystemAST [Catalytic activity/Vol]18 U/LNINF - 41 U/[facility] SystemBilirubin [Mass/Vol]0.9 mg/dL0.3 - 1.2 mg/dLUC [facility] HospitalCalcium [Mass/Vol]8.2 mg/dLLow8.5 - 10.5 mg/dLUC West [facility] HospitalChloride [Moles/Vol]93 mmol/LLow98 - 109 mmol/L [facility] HospitalCO2 [Moles/Vol]29 mmol/L22 - 32 mmol/[facility] SystemCreatinine [Mass/Vol]0.87 mg/dL0.40 - 1.00 mg/dLUC [facility] Comment on above:METHOD TRACEABLE TO IDNY STANDARDEGFR Non-Race Aauponzjp[address] [place], [place] [address]Comment on above:eGFR not reported due to non-numeric value for Creatinine. Reported eGFR is based on the CKD-EPI 2020 equation that does not use a race coefficient. Glucose [Mass/Vol]216 mg/cDFlsx51 - 99 mg/dLUC [facility] Interpretation and review of laboratory resultsAbnormalUC [facility] Hospital Potassium [Moles/Vol]2.8 mmol/LLow3.5 - 5.0 mmol/[facility] SystemProtein [Mass/Vol]6.3 g/dL6.0 - 8.0 g/dLNovant Health Huntersville Medical Centerodium [Moles/Vol]134 mmol/L134 - 146 mmol/[facility] SystemUrea nitrogen [Mass/Vol]17 mg/dL5 - 27 mg/dLUC [facility] HospitalD-DIMERon 12-30-2024D HRZNU504 ng/mLHigh1-255 [facility] Medical CenterComment on above:Result Comment: Results >255 ng/mL DDU: Results may be indicative of the presence of VTE. The use of the Wells score and further diagnostic tests should be considered. Elevated D-Dimer levels can be associated with DIC, neoplasm, , trauma and liver disease. Elevated levels of rheumatoidfactor may lead to an overestimation of the D-Dimer level.Performed By: #### DDMR ####[address], [place] VIRD-Dimeron 92-51-2503Anpfyt D-dimer DDU (PPP) [Mass/Vol]514 ng/mLHigh1 - 255 ng/mLUC West Chester HospitalComment on above: Results >255 ng/mL DDU: Results may be indicative of the presence of VTE. The use of the Wells score and further diagnostic tests should be considered. Elevated D-Dimer levels can be associated with DIC, neoplasm, , trauma and liver disease. Elevated levels of rheumatoid factor may leadto an overestimation of the D-Dimer level.MAGNESIUMon 96-48-0587Pupvaezfi [Mass/Vol] 1.9 mg/dLNormal1.8-2.6St. [facility] Medical CenterComment on above:Performed By: #### MG ####[address] [address] VIRMagnesiumon 85-92-6664Gyfttspjvacrhr and review of laboratory resultsNormWright-Patterson Medical CenterMagnesium [Mass/Vol]1.9 mg/dL1.8 - 2.6 mg/dL [facility] HospitalNo Panel Informationon [id number] TubeAuto Resulted [facility] SystemDayton VA Medical Centerca [facility] System Interpretation and review of laboratory resultsAbnormalAscension Northeast Wisconsin St. [facility] SystemPOCT NURSING URINE MACROSCOPIC UAon 00-37-9746GBBRMYNTC NURNegativeNormalNegativeSt. Mary's Medical CenterComment on above:Performed By: #### NUM ####[address] [address] VIRBLOOD/HGB NURNegativeNormalNegativeProMedica Elk Grove HospitalComment on above:Performed By: #### NUM ####[facility] ([address] [address] VIRGLUCOSE NURNegativeNormal NegativeProSt. Mary'S Medical Center, [facility] Campus HospitalComment on above:Performed By: #### NUM ####[facility] ([address] [address] VIRKETONES NURNegativeNormalNegativeTuscarawas Hospital HospitalComment on above:Performed By: #### NUM ####[facility] ([address] [address] VIRLEUKOCYTE ESTERASE NURNegativeNormalNegative St. Mary's Medical CenterComment on above:Performed By: #### NUM ####[facility] ([address] [address] VIRNITRITE NURPositiveAbnormalNegativeSt. Mary's Medical CenterComment on above:Performed By: #### NUM ####[facility] ([address] [address] VIRPH NUR7.7Gxnjeu4.0, 6.0, 6.5, 7.0, 7.5, 8.0, 8.5, 5.5 [facility]'s Medical CenterComment on above:Performed By: #### NUM ####[facility] ([address] [address] VIRPROTEIN NURNegativeNormalNegativeTuscarawas Hospital HospitalComment on above:Performed By: #### NUM ####[facility] ([address] [address] VIRSPECIFIC GRAVITY NUR1.249Utyish8.010, 1.015, 1.020, 1.025ProHca Houston Healthcare North CypressComment on above:Performed By: #### NUM ####[facility] ([place])[address] [place] [address] VIRUROBILINOGEN NUR0.2 E.U./dLNormalProHca Houston Healthcare North CypressComment on above:Performed By: #### NUM ####[facility] ([facility])[address] [place] [address] VIRPOCT Nursing Urine Macroscopic UAon 37-04-7502Vbmrarshk Ql (U)NegativeNegativeProMedica Health SystemGlucose [Mass/Vol]NegativeNegativeProMedica Health SystemHemoglobin Ql (U)Negative NegativeProMedica Health SystemInterpretation and review of laboratory results AbnormalProMedica Health SystemKetones (U) [Mass/Vol]NegativeNegativeProMedica Health SystemLeukocyte esterase Test strip Ql (U)NegativeNegativeProMedica Health SystemNitrite Ql (U)PositiveAbnormalNegativeProMedica Health SystempH (U) 7.0 [pH]5.0, 6.0, 6.5, 7.0, 7.5, 8.0, 8.5, 5.5ProMedica Health SystemProtein Ql (U)NegativeNegativeProMedica Health SystemSpecific gravity (U) [Rel density] 1.0101.010, 1.015, 1.020, 1.025ProMedica Health SystemUrobilinogen Qn (U) 0.802957669 {Carlos Alberto'U}/dLProMedica Health SystemProMedica Health SystemPROTIME AND INRon 70-92-7608VST5.0High0.9-1.2PKeenan Private HospitalComment on above: Performed By: #### PINR ####[facility]ITAL[facility] ([facility])[address] [place] [address] [id number] VIRPT Coag (PPP) [Time]22.2 sHigh9.8-13.2PKeenan Private HospitalComment on above:Performed By: #### PINR ####[facility] ([facility])[address] [place] [address] [id number] VIRProtime & INRon 95-70-4256JGX Coag (Platelet poor plasma or blood) [Relative time]2High0.9 - 1.2 [facility] HospitalPT Coag (PPP) [Time]22.2 [facility] PittsburghTROP I, HIGH SENSITIVITY 1 HOURon 89-93-2018CWOGMRQF I, HIGH SENSITIVITY6 ng/LNormal <16St. [facility]'s Medical CenterComment on above:Performed By: #### [email or web address] ####[facility] ([address] [address] VIRTROPONIN I, HIGH SENSITIVITY 0 HOURon 78-45-0455EOKLYJMJ I, HIGH SENSITIVITY6 ng/LNormal<16ProHca Houston Healthcare North CypressComment on above:Performed By: #### TNIHS0 ####[facility] ([address] [place] [address] VIRTroponin I, High Sensitivity 0 Houron 12-30-2024 Interpretation and review of laboratory resultsUnity Hospital Troponin I.cardiac High sensitivity method [Mass/Vol]6 ng/LNINF - 16 ng/L [facility] SystemTroponin I, High Sensitivity 1 Houron 25-06-2479Ygyrrlnasprvdr and review of laboratory resultsNoOnslow Memorial HospitalTroponin I.cardiac High sensitivity method [Mass/Vol]6 ng/LNINF - 16 ng/LProMedChestnut Hill HospitalXR CHEST 1 VWon 12-30-2024 XR CHEST 1 [facility]XR Chest Single viewon 12-30-2024 Single view chest History: hypoxia. Chest pain. Comparison: CT scan 07/25/2024. Findings: Single portable view of the chest. Cardiac silhouette is mildly enlarged. There is perihilar pulmonary vascular congestion. Calcification at the aortic knob. Mild interstitial edema. Retrocardiac left basilar opacity. No pleural effusion or pneumothorax. Impression: 1. Retrocardiac left basilar opacity, possibly atelectasis versus pneumonia in the appropriate clinical scenario. 2. Mild perihilar pulmonary vascular congestion with interstitial edema. Finalized by Richard Landaverde MD on 12/30/2024 3:32 PMSECTRARichard Maloney MD - 12/30/2024 Single view chest History: hypoxia. Chest pain. Comparison: CT scan 07/25/2024. Findings: Single portable view of the chest. Cardiac silhouette is mildly enlarged. There is perihilar pulmonary vascular congestion. Calcification at the aortic knob. Mild interstitial edema. Retrocardiac left basilar opacity. No pleural effusion or pneumothorax. Impression: 1. Retrocardiac left basilar opacity, possibly atelectasis versus pneumonia in the appropriate clinical scenario. 2. Mild perihilar pulmonary vascular congestion with interstitial edema. Finalized by Richard Landaverde MD on 12/30/2024 3:32 PM [facility] HospitalRadiology Study observation (narrative)[facility] HospitalXR Chest Single viewOrdered By: Richard Landaverde on 18-74-3722ZmiLzmbzyUC West [facility] Hospital Work Phone: BEDSIDE GLUCOSEon 88-32-9877Kqdzyne [Mass/Vol]126 mg/yQDcis89-90QujRgfswjHca Houston Healthcare North CypressComment on above:Performed By: #### BEDG ####[facility] ([facility])[address] [place] [address] VIRCBC WITH AUTO DIFFERENTIALon 51-85-7055NUDBLNPNV ABSOLUTE COUNT (10*3/UL) BY AUTOMATED COUNT0.2 10*3/uLNormal0.0-0.2PTerrebonne General Medical Centerica [facility] Comment on above:Performed By: #### CBCA ####[facility] ([facility])[address] [place], [place] [address] VIRBASOPHILS RELATIVE PERCENT BY AUTOMATED COUNT1.6 %NormalSt. Mary's Medical CenterComment on above:Performed By: #### CBCA ####[facility] ([facility])[address] [place], [place] [address] VIRCELLAVISION DIFFERENTIAL TYPEAUTOMATED DIFFERENTIAL NormalSt. Mary's Medical CenterComment on above:Performed By: #### CBCA ####[facility] ([address], [id number] VIREosinophils (Bld) [#/Vol]0.5 10*3/uLHigh0.0-0.4[facility] Comment on above:Performed By: #### CBCA ####[facility] ([address], [id number] VIREOSINOPHILS RELATIVE PERCENT BY AUTOMATED COUNT5.0 %NormalProHca Houston Healthcare North CypressComment on above:Performed By: #### CBCA ####[facility] ([address], [id number] VIRErythrocyte distribution width (RBC) [Ratio]18.8 %High 11.5-15St. [facility]'s Medical CenterComment on above:Performed By: #### CBCA ####[facility] ([address], [id number] VIRHematocrit (Bld) [Volume fraction]26.8 %Cfm50-58OrbRgwrjySt. Mary's Medical Center Comment on above:Performed By: #### CBCA ####[facility] ([address], [id number] VIRHemoglobin (Bld) [Mass/Vol]8.6 g/dL Low11.7-15.5PKeenan Private HospitalComment on above:Performed By: #### CBCA ####[facility] ([address], [id number] VIRLYMPHOCYTES ABSOLUTE COUNT (10*3/UL) BY AUTOMATED COUNT1.4 10*3/uLNormal 1.0-3.5PKeenan Private HospitalComment on above:Performed By: #### CBCA ####[facility] ([address], [id number] VIRLYMPHOCYTES RELATIVE PERCENT BY AUTOMATED COUNT14.4 %NormalProHca Houston Healthcare North CypressComment on above:Performed By: #### CBCA ####[facility] ([facility])[address] [place], [place] [address]E.[place], [id number] VIRMCH (RBC) [Entitic mass] 25.1 sqNnj04-60HchJlonsnHca Houston Healthcare North CypressComment on above:Performed By: #### CBCA ####[facility] ([facility])[address] [place], [place] [address] [address] VIRMCHC (RBC) [Mass/Vol]32.1 g/fCWqprok82-04SfsBcufzlSt. Mary's Medical Center Comment on above:Performed By: #### CBCA ####[facility] ([address], [id number] VIRMCV (RBC) [Entitic vol]78 fLLow 80-100ProHca Houston Healthcare North CypressComment on above:Performed By: #### CBCA ####[facility] ([facility])[address] [place], [place] [address]E.[place], [id number] VIRMONOCYTES ABSOLUTE COUNT (10*3/UL) BY AUTOMATED COUNT1.0 10*3/uLHigh0.0-0.9 [facility] Medical CenterComment on above:Performed By: #### CBCA ####[facility] ([address], [id number] VIRMONOCYTES RELATIVE PERCENT BY AUTOMATED COUNT10.3 %NormalProHca Houston Healthcare North CypressComment on above:Performed By: #### CBCA ####[facility] ([address], [id number] VIRNEUTROPHILS ABSOLUTE COUNT BY AUTOMATED COUNT6.8 10*3/uLHigh1.5-6.6ProHca Houston Healthcare North CypressComment on above: Performed By: #### CBCA ####[facility] ([facility])[address] [place], [place] [address]E.[place], [id number] VIRNEUTROPHILS RELATIVE PERCENT BY AUTOMATED COUNT68.7 %NormalProHca Houston Healthcare North CypressComment on above:Performed By: #### CBCA ####[facility] ([address], [id number] VIRPlatelet mean volume (Bld) [Entitic vol]7.4 fLNormal7-12PKeenan Private HospitalComment on above:Performed By: #### CBCA ####[facility] ([facility])[address] [place] [address] AVE.[place], [id number] VIRPlatelets (Bld) [#/Vol]452 10*3/iRFyzb223-791ActOogqwaHca Houston Healthcare North CypressComment on above:Performed By: #### CBCA ####[facility] ([address] [place] [address] VIRRBC COUNT3.43 X10E12/LLow3.8-5.2PKeenan Private HospitalComment on above:Performed By: #### CBCA ####[facility] ([address] VIRWBC (Bld) [#/Vol]9.9 10*3/uLNormal4-11 [facility] Medical CenterComment on above:Performed By: #### CBCA ####[facility] ([address] [id number] VIR COMPREHENSIVE METABOLIC PANELon 46-66-8531Lzuivtk [Mass/Vol]2.9 g/dLLow3.2-5.3 [facility] Medical CenterComment on above:Performed By: #### CMP ####[facility] ([address] [place] [address] VIRALP [Catalytic activity/Vol]67 U/CNguhqt26-500AumAwnmggHca Houston Healthcare North CypressComment on above:Performed By: #### CMP ####[facility] ([place])[address] [place] [address] VIRALT [Catalytic activity/Vol]16 U/LNormal<=31 St[facility] Medical CenterComment on above:Performed By: #### CMP ####[facility] ([place] [address] [place] [address] VIRAnion gap [Moles/Vol]11 mmol/LNormal5-15ProHca [facility] Healthcare North CypressComment on above: Performed By: #### CMP ####[facility] ([place] [address] [address] VIRAST [Catalytic activity/Vol]21 U/LNormal<=41 [facility] Medical CenterComment on above:Performed By: #### CMP ####[facility] ([place] [address] [address] VIRBilirubin [Mass/Vol]0.6 mg/dLNormal0.3-1.2ProMedMid [facility] Mental Health Center HospitalComment on above: Performed By: #### CMP ####[facility] ([place] [address] [place] [address] VIRCalcium [Mass/Vol]8.4 mg/dLLow8.5-10.5ProMedSt. Joseph's Medical CenterComment on above:Performed By: #### CMP ####[facility] ([place] [address] [place] [address] VIRChloride [Moles/Vol]99 mmol/RCpbbyu97-658KowBuyafyHca Houston Healthcare North CypressComment on above: Performed By: #### CMP ####[facility] ([place] [address] [place] [address] VIRCO2 [Moles/Vol]30 mmol/XXkncae96-27TldZlnfjkKeenan Private HospitalComment on above:Performed By: #### CMP ####[facility] ([place] [address] [place] [address] VIRCreatinine [Mass/Vol]0.52 mg/dLNormal0.40-1.00ProHca Houston Healthcare North CypressComment on above: Result Comment: METHOD TRACEABLE TO IDMS STANDARDPerformed By: #### CMP ####[facility] ([address] [address] VIREGFR (CKD-EPI) NON-RACE DEPENDENT>^90Normal>=60ProHca Houston Healthcare North CypressComment on above:Result Comment: eGFR not reported due to non-numeric value for Creatinine.Reported eGFR is based ontheCKD-EPI 2020 equation that doesnot use a race coefficient.Performed By: #### CMP ####[facility] ([address] [address] VIRGlucose [Mass/Vol]98 mg/pNOxedmc28-61McjOtjprhHca Houston Healthcare North CypressComment on above: Performed By: #### CMP ####[facility] ([address] [address] VIRPotassium [Moles/Vol]3.3 mmol/LLow3.5-5.0ProHca [facility] Healthcare North CypressComment on above:Performed By: #### CMP ####[address] [address] VIRProtein [Mass/Vol]5.7 g/dLLow6.0-8.0ProHca [facility] Healthcare North CypressComment on above:Performed By: #### CMP ####[facility] ([address] [address] VIRSodium [Moles/Vol]140 mmol/TCtdcbx026-141XsxIlxsno [facility] HospitalComment on above:Performed By: #### CMP ####[facility] ([address] [address] VIRUrea nitrogen [Mass/Vol]7 mg/dLNormal5-27ProHca [facility] Healthcare North CypressComment on above:Performed By: #### CMP ####[facility] ([address] [address] VIRMAGNESIUMon 90-12-3639Doznrclqc [Mass/Vol]2.0 mg/dL Normal1.8-2.6ProHca [facility] Healthcare North CypressComment on above:Performed By: #### MG ####[facility] ([address] [address] VIRURINALYSISon 07-44-6282Kowzkhxhd Ql (U)NegativeNormalNegativeSt. Mary's Medical CenterComment on above:Performed By: #### UA ####[facility] ([address] [address] VIRBLOOD/HGBNegative NormalNegativeSt. Mary's Medical CenterComment on above:Performed By: #### UA ####[facility] ([address] [address] VIRColor (U)YellowNormalYellowProHca Houston Healthcare North CypressComment on above: Performed By: #### UA ####[facility] ([address] [address] VIRGlucose Ql (U)NegativeNormalNegative, 250 mg/dL [facility] Medical CenterComment on above:Performed By: #### UA ####[facility] ([address] [address] VIRKetones Ql (U)NegativeNormalNegativeSt. Mary's Medical CenterComment on above:Performed By: #### UA ####[facility] ([address] [address] VIRLeukocyte esterase Test strip Ql (U)NegativeNormal NegativeSt. Mary's Medical CenterComment on above:Performed By: #### UA ####[facility] ([address] [place] [address] VIRNitrite Ql (U)NegativeNormalNegativeSt. Mary's Medical CenterComment on above:Performed By: #### UA ####[facility] ([address] [address] VIRPH,URINE7.2Pkwtgn7.0-8.5ProMedica Miller Children'S HospitalComment on above:Performed By: #### UA ####[facility] ([address] [address] VIRProtein Ql (U)Negative NormalNegativeSt. Mary's Medical CenterComment on above:Performed By: #### UA ####[facility] ([address] [address] VIRSpecific gravity (U) [Rel density]1.480Plavjr6.003-1.035ProHca Houston Healthcare North CypressComment on above:Performed By: #### UA ####[facility] ([address] [address] [address] [facility]'s Medical CenterComment on above:Performed By: #### UA ####[facility] ([address] [address] VIR UROBILINOGEN0.2 eu/dLNormal0.2 eu/dL, 1.0 eu/dLSt. Mary's Medical CenterComment on above:Performed By: #### UA ####[facility] ([address] [address] VIRURINE CULTUREon 26-84-2595Wepbvnuf identified Cx Nom (U)CULTURE RESULTS <10,000 ORGANISMS/mL NORMAL URO GENITAL FLORANoalSt. Mary's Medical Center Comment on above:Performed By: #### UC ####[facility] ([facility])[address], [place] [address] VIRBEDSIDE GLUCOSEon 12-16-2024 Glucose [Mass/Vol]152 mg/wXOrjm93-66KlpRzcdpjHca Houston Healthcare North CypressComment on above: Performed By: #### BEDG ####[facility] ([address], [place] VIRGlucose [Mass/Vol]167 mg/jCKfnm15-61GioYzdhokSt. Mary's Medical CenterComment on above:Performed By: #### BEDG ####[facility] ([address], [place] VIRGlucose [Mass/Vol] 114 mg/zERmuk73-24JatOkquzkSt. Mary's Medical CenterComment on above:Performed By: #### BEDG ####[facility] ([address] [place] [address] VIRGlucose [Mass/Vol]134 mg/xHIdxy31-92CpmUqjfpgSt. Mary's Medical CenterComment on above:Performed By: #### BEDG ####[facility] ([address], [id number] VIRCBC WITH AUTO DIFFERENTIALon 44-33-3276LKNEXUIGZ ABSOLUTE COUNT (10*3/UL) BY AUTOMATED COUNT0.1 10*3/uLNormal 0.0-0.2ProMedica Miller Children'S HospitalComment on above:Performed By: #### CBCA ####[facility] ([address], [id number] VIRBASOPHILS RELATIVE PERCENT BY AUTOMATED COUNT1.5 %NormalProHca Houston Healthcare North CypressComment on above:Performed By: #### CBCA ####[facility] ([address], [id number] VIRCELLAVISION DIFFERENTIAL TYPEAUTOMATED DIFFERENTIALNormalProHca Houston Healthcare North CypressComment on above: Performed By: #### CBCA ####[facility] ([address], [place] VIREosinophils (Bld) [#/Vol]0.5 10*3/uLHigh0.0-0.4 [facility] CenterComment on above:Performed By: #### CBCA ####[facility] ([address], [id number] VIR EOSINOPHILS RELATIVE PERCENT BY AUTOMATED COUNT5.9 %NormalSt. Mary's Medical CenterComment on above:Performed By: #### CBCA ####[facility] ([address], [id number] VIRErythrocyte distribution width (RBC) [Ratio]18.8 %High11.5-15St. [facility]'s Medical CenterComment on above: Performed By: #### CBCA ####[facility] ([address], [id number] VIRHematocrit (Bld) [Volume fraction]23.7 %Axx46-36 [facility] Medical CenterComment on above:Performed By: #### CBCA ####[facility] ([address], [id number] VIRHemoglobin (Bld) [Mass/Vol]7.6 g/dLLow11.7-15.5PKeenan Private HospitalComment on above: Performed By: #### CBCA ####[facility] ([address], [id number] VIRLYMPHOCYTES ABSOLUTE COUNT (10*3/UL) BY AUTOMATED COUNT1.1 10*3/uLNormal1.0-3.5PKeenan Private HospitalComment on above: Performed By: #### CBCA ####[facility] ([address], [id number] VIRLYMPHOCYTES RELATIVE PERCENT BY AUTOMATED COUNT11.8 %NormalSt. Mary's Medical CenterComment on above:Performed By: #### CBCA ####[facility])[address], [address] VIRMCH (RBC) [Entitic mass]25.1 npBkz66-26JhfZgkzgzSt. Mary's Medical CenterComment on above:Performed By: #### CBCA ####[facility] ([address], [id number] VIRMCHC (RBC) [Mass/Vol]32.2 g/nYErazxe41-65 St[facility] Medical CenterComment on above:Performed By: #### CBCA ####[facility] ([address], [place] VIRMCV (RBC) [Entitic vol]78 lPNtq56-834DjeVtsyjaHca Houston Healthcare North CypressComment on above:Performed By: #### CBCA ####[facility] ([address], [id number] VIRMONOCYTES ABSOLUTE COUNT (10*3/UL) BY AUTOMATED COUNT0.9 10*3/uLNormal0.0-0.9St. [facility]'s Medical CenterComment on above:Performed By: #### CBCA ####[facility] ([address], [id number] VIRMONOCYTES RELATIVE PERCENT BY AUTOMATED COUNT9.8 %Normal St[facility]'s Medical CenterComment on above:Performed By: #### CBCA ####[facility] ([address], [id number] VIR NEUTROPHILS ABSOLUTE COUNT BY AUTOMATED COUNT6.4 10*3/uLNormal1.5-6.6St. [facility]'s Medical CenterComment on above:Performed By: #### CBCA ####[facility] ([address], [id number] VIRNEUTROPHILS RELATIVE PERCENT BY AUTOMATED COUNT71.0 %NormalProHca Houston Healthcare North CypressComment on above:Performed By: #### CBCA ####[facility] ([facility])[address], [id number] VIRPlatelet mean volume (Bld) [Entitic vol]7.2 fLNormal7-12PKeenan Private HospitalComment on above:Performed By: #### CBCA ####[facility] ([place] [address], [id number] VIRPlatelets (Bld) [#/Vol]414 10*3/iETpfwqc911-772KzyIrlzea [facility]remont HospitalComment on above:Performed By: #### CBCA ####[facility] ([place] [address], [id number] VIRRBC COUNT3.03 X10E12/LLow3.8-5.2PKeenan Private HospitalComment on above:Performed By: #### CBCA ####[facility] ([place] [address] [place] [address] VIRWBC (Bld) [#/Vol]9.0 10*3/uLNormal4-11ProHca [facility] Healthcare North CypressComment on above:Performed By: #### CBCA ####[facility] ([facility])[address] [place], [place] [address] AVE.[place], [id number] VIRCOMPREHENSIVE METABOLIC PANELon 43-20-1021Kooqgam [Mass/Vol]2.8 g/dLLow3.2-5.3PKeenan Private HospitalComment on above:Performed By: #### CMP ####[facility] ([facility] [place] [address] VIRALP [Catalytic activity/Vol]57 U/LNormal 39-130ProHca [facility] Healthcare North CypressComment on above:Performed By: #### CMP ####[facility] ([place] [address] [place] [address] VIRALT [Catalytic activity/Vol]17 U/LNormal<=31PKeenan Private Hospital Comment on above:Performed By: #### CMP ####[facility] ([address] [place] [address] VIRAnion gap [Moles/Vol]5 mmol/LNormal 5-15St. [facility]'s Medical CenterComment on above:Performed By: #### CMP ####[facility] ([address], [place] [address] VIRAST [Catalytic activity/Vol]24 U/LNormal<=41[facility] Comment on above:Performed By: #### CMP ####[facility] ([address] [place] [address] VIRBilirubin [Mass/Vol]0.5 mg/dLNormal 0.3-1.2PKeenan Private HospitalComment on above:Performed By: #### CMP ####[facility] ([address], [place] [address] VIRCalcium [Mass/Vol]7.7 mg/dLLow8.5-10.5PKeenan Private HospitalComment on above:Performed By: #### CMP ####[facility] ([address] [place] [address] VIRChloride [Moles/Vol]105 mmol/SYyjilh75-310 [facility] Medical CenterComment on above:Performed By: #### CMP ####[facility] ([address] [place] [address] VIRCO2 [Moles/Vol]27 mmol/QNubbge44-49JquNjpkgfKeenan Private HospitalComment on above: Performed By: #### CMP ####[facility] ([address] [place] [address] VIRCreatinine [Mass/Vol]0.66 mg/dLNormal0.40-1.00 [facility] Medical CenterComment on above:Result Comment: METHOD TRACEABLE TO IDMS STANDARDPerformed By: #### CMP ####[facility] ([address] [place] [address] VIREGFR (CKD-EPI) NON-RACE DEPENDENT >^90Normal>=60ProHca Houston Healthcare North CypressComment on above:Result Comment: eGFR not reported due to non-numeric value for Creatinine.Reported eGFR is based on theCKD-EPI 2020 equation that doesnot use a race coefficient.Performed By: #### CMP ####[facility] ([address] [place] [address] VIRGlucose [Mass/Vol]97 mg/oPNtkhbv10-26OtfCzsalfHca Houston Healthcare North CypressComment on above:Performed By: #### CMP ####[facility] ([address] [place] [address] VIRPotassium [Moles/Vol]3.5 mmol/LNormal 3.5-5.0ProHca [facility] Healthcare North CypressComment on above:Performed By: #### CMP ####[facility] ([address], [place] [address] VIRProtein [Mass/Vol]5.3 g/dLLow6.0-8.0St. [facility]'s Medical CenterComment on above:Performed By: #### CMP ####[facility] ([address] [place] [address] VIRSodium [Moles/Vol]137 mmol/TIjwmgg157-570 ProMUniversity of California, Irvine Medical CenterComment on above:Performed By: #### CMP ####[facility] ([address] [place] [address] VIRUrea nitrogen [Mass/Vol]8 mg/dLNormal5-27ProHca [facility] Healthcare North CypressComment on above: Performed By: #### CMP ####[facility] ([address] [place] [address] VIRHEMOGLOBIN AND HEMATOCRIT, BLOODon 12-16-2024 Hematocrit (Bld) [Volume fraction]24.3 %[id number]. Mary's Medical Center Comment on above:Performed By: #### HH ####[facility] ([address] [place] [address] VIRHemoglobin (Bld) [Mass/Vol]7.9 g/dL Low11.7-15.5ProMedSt. Joseph's Medical CenterComment on above:Performed By: #### HH ####[facility] ([facility])[address] [place] [address].[place], [place] [address] VIRIONIZED CALCIUMon 30-07-0740MLJEZYL CALCIUM - ICAN4.7 mg/dLNormal4.5-5.3 [facility] CenterComment on above:Performed By: #### ICA ####[facility] ([address] [place] [address] VIRMAGNESIUM on [id number] [Mass/Vol]2.1 mg/dLNormal1.8-2.6St. Mary's Medical CenterComment on above:Performed By: #### MG ####[facility] ([address] [place] [address] VIRPOTASSIUMon 12-16-2024 Potassium [Moles/Vol]3.8 mmol/LNormal3.5-5.0St. Mary's Medical CenterComment on above:Performed By: #### K ####[facility] ([address] [place] [address] VIRBEDSIDE GLUCOSEon 62-93-8934Jxzcgid [Mass/Vol]185 mg/xCEimy53-63DehVcbkfrSt. Mary's Medical CenterComment on above:Performed By: #### BEDG ####[facility] ([address], [place] VIRGlucose [Mass/Vol]127 mg/pHUrec19-08HtdOpocjrSt. Mary's Medical CenterComment on above:Performed By: #### BEDG ####[facility] ([address], [id number] VIRGlucose [Mass/Vol]173 mg/dL Vkeg93-11QqqJysnqc[address] [place], [place] [address]Comment on above:Performed By: #### BEDG ####[facility] ([address], [id number] VIRGlucose [Mass/Vol]129 mg/uSZafu64-60NupBzmeem40 House StreetComment on above:Performed By: #### BEDG ####[facility] ([address], [id number] VIRCBC WITH AUTO DIFFERENTIALon 12-15-2024 BASOPHILS ABSOLUTE COUNT (10*3/UL) BY AUTOMATED COUNT0.1 10*3/uLNormal0.0-0.2 [facility] CenterComchel[facility] hospital on above:Performed By: #### CBCA ####[facility] ([address], [id number] VIRBASOPHILS RELATIVE PERCENT BY AUTOMATED COUNT1.0 %[facility]Com[facility] on above:Performed By: #### CBCA ####[facility] ([address], [id number] VIRCELLAVISION DIFFERENTIAL TYPE AUTOMATED DIFFERENTIALNormalSt. Mary's Medical CenterComchelsea hospital on above:Performed By: #### CBCA ####[facility] ([address], [id number] VIREosinophils (Bld) [#/Vol]0.4 10*3/uLNormal0.0-0.4 [facility] CenterComchelsea hospital on above:Performed By: #### CBCA ####[facility] ([address], [id number] VIR EOSINOPHILS RELATIVE PERCENT BY AUTOMATED COUNT4.6 %NormalSt. Mary's Medical CenterComment on above:Performed By: #### CBCA ####[facility] ([address], [id number] VIRErythrocyte distribution width (RBC) [Ratio]18.5 %High11.5-15ProHca Houston Healthcare North CypressComment on above: Performed By: #### CBCA ####[facility] ([address], [id number] VIRHematocrit (Bld) [Volume fraction]25.0 %Vsu34-19 St[facility] Medical CenterComment on above:Performed By: #### CBCA ####[facility] ([address], [id number] VIRHemoglobin (Bld) [Mass/Vol]7.8 g/dLLow11.7-15.5PKeenan Private HospitalComment on above: Performed By: #### CBCA ####[facility] ([address], [id number] VIRLYMPHOCYTES ABSOLUTE COUNT (10*3/UL) BY AUTOMATED COUNT0.9 10*3/uLLow1.0-3.5PKeenan Private HospitalComment on above:Performed By: #### CBCA ####[facility] ([address], [id number] VIRLYMPHOCYTES RELATIVE PERCENT BY AUTOMATED COUNT10.3 % NormalSt. Mary's Medical CenterComment on above:Performed By: #### CBCA ####[facility] ([address], [id number] VIRMCH (RBC) [Entitic mass]25.0 ntYjk84-89BqqTkhsclHca Houston Healthcare North CypressComment on above:Performed By: #### CBCA ####[facility] ([address], [id number] VIRMCHC (RBC) [Mass/Vol]31.3 g/yWZoc79-91 St[facility] Medical CenterComment on above:Performed By: #### CBCA ####[facility] ([address], [id number] VIRMCV (RBC) [Entitic vol]80 bMYigayg76-893YtkLzzzhk [place] HospitalComment on above: Performed By: #### CBCA ####[facility] ([address], [id number] VIRMONOCYTES ABSOLUTE COUNT (10*3/UL) BY AUTOMATED COUNT1.0 10*3/uLHigh0.0-0.9St. Mary's Medical CenterComment on above:Performed By: #### CBCA ####[facility] ([address], [id number] VIRMONOCYTES RELATIVE PERCENT BY AUTOMATED COUNT11.6 % NormalSt. Mary's Medical CenterComment on above:Performed By: #### CBCA ####[facility] ([address], [id number] VIRNEUTROPHILS ABSOLUTE COUNT BY AUTOMATED COUNT6.4 10*3/uLNormal1.5-6.6 [facility] CenterComchelsea hospital on above:Performed By: #### CBCA ####[facility] ([address], [id number] VIR NEUTROPHILS RELATIVE PERCENT BY AUTOMATED COUNT72.5 %NormalSt. Mary's Medical CenterComment on above:Performed By: #### CBCA ####[facility] ([address], [id number] VIRPlatelet mean volume (Bld) [Entitic vol]6.9 fLLow7-12ProMedica Miller Children'S HospitalComment on above:Performed By: #### CBCA ####[facility] ([address], [id number] VIRPlatelets (Bld) [#/Vol]398 10*3/sFWbhksk778-447IbkHzcvdz [place] HospitalComment on above:Performed By: #### CBCA ####[facility] ([facility])[address] [place], [place] [address], [place] VIRRBC COUNT3.14 X10E12/LLow3.8-5.2PKeenan Private HospitalComment on above:Performed By: #### CBCA ####[facility] ([facility])[address] [place], [place] [address] [place] [address] VIRWBC (Bld) [#/Vol]8.8 10*3/uLNormal4-11ProHca [facility] Healthcare North CypressComment on above:Performed By: #### CBCA ####[facility] ([address] [place], [place] VIRCOMPREHENSIVE METABOLIC PANELon 67-91-5262Psluiby [Mass/Vol]2.6 g/dLLow3.2-5.3PKeenan Private HospitalComment on above:Performed By: #### CMP ####[facility] ([facility])[address] [place], [place] [address] [place] [address] VIRALP [Catalytic activity/Vol]53 U/LNormal 39-130ProHca [facility] Healthcare North CypressComment on above:Performed By: #### CMP ####[facility] ([facility])[address] [place], [place] [address].[place], [place] [address] VIRALT [Catalytic activity/Vol]16 U/LNormal<=31PKeenan Private Hospital Comment on above:Performed By: #### CMP ####[facility] ([facility])[address] [place], [place] [address] [place] [address] VIRAnion gap [Moles/Vol]3 mmol/LLow 5-15ProHca [facility] Healthcare North CypressComment on above:Performed By: #### CMP ####[facility] ([address], [place] [address] VIRAST [Catalytic activity/Vol]25 U/LNormal<=41[facility] Comment on above:Performed By: #### CMP ####[facility] ([address] [place] [address] VIRBilirubin [Mass/Vol]0.9 mg/dLNormal 0.3-1.2PKeenan Private HospitalComment on above:Performed By: #### CMP ####[facility] ([address] [address] VIRCalcium [Mass/Vol]7.8 mg/dLLow8.5-10.5PKeenan Private HospitalComment on above:Performed By: #### CMP ####[address] [address] VIRChloride [Moles/Vol]112 mmol/CQhxg13-287 [facility] Medical CenterComment on above:Performed By: #### CMP ####[facility] ([address] [address] VIRCO2 [Moles/Vol]23 mmol/PUzwrxt50-29UxmVzwmvuKeenan Private HospitalComment on above: Performed By: #### CMP ####[facility] ([address] [place] [address] VIRCreatinine [Mass/Vol]0.75 mg/dLNormal0.40-1.00 [facility] Medical CenterComment on above:Result Comment: METHOD TRACEABLE TO IDMS STANDARDPerformed By: #### CMP ####[facility] ([address] [address] VIRGFR/1.73 sq M.predicted among non- blacks MDRD (S/P/Bld) [Vol rate/Area]88 mL/min/{1.73_m2}Normal>=60ProHca Houston Healthcare North CypressComment on above:Result Comment: Reported eGFR is based on theCKD-EPI 2020 equation that doesnot use a race coefficient.Performed By: #### CMP ####[facility] ([address] [place] [address] VIRGlucose [Mass/Vol]124 mg/gWDwcu45-62VokWkjqwkHca Houston Healthcare North CypressComment on above:Performed By: #### CMP ####[facility] ([address] [place] [address] VIRPotassium [Moles/Vol]4.5 mmol/LNormal 3.5-5.0ProHca [facility] Healthcare North CypressComment on above:Performed By: #### CMP ####[address], [place] [address] VIRProtein [Mass/Vol]5.0 g/dLLow6.0-8.0ProHca Houston Healthcare North CypressComment on above:Performed By: #### CMP ####[facility] ([address] [place] [address] VIRSodium [Moles/Vol]138 mmol/BPprspb881-231 [facility] CenterComment on above:Performed By: #### CMP ####[facility] ([address] [place] [address] VIRUrea nitrogen [Mass/Vol]11 mg/dLNormal5-27ProHca [facility] Healthcare North CypressComment on above: Performed By: #### CMP ####[facility] ([address] [place] [address] VIRHEMOGLOBIN AND HEMATOCRIT, BLOODon 12-15-2024 Hematocrit (Bld) [Volume fraction]25.0 %Wmm10-44OpdWchjerSt. Mary's Medical Center Comment on above:Performed By: #### HH ####[facility] ([address] [place] [address] VIRHemoglobin (Bld) [Mass/Vol]7.9 g/dL Low11.7-15.5ProMedica Miller Children'S HospitalComment on above:Performed By: #### HH ####[facility] ([address] [address] VIRIONIZED CALCIUMon 39-80-5490TNXKWDP CALCIUM - ICAN4.8 mg/dLNormal4.5-5.3 [facility] Medical CenterComment on above:Performed By: #### ICA ####[facility] ([address] [address] VIRMAGNESIUM on 44-90-5527Mjililfpi [Mass/Vol]2.4 mg/dLNormal1.8-2.6St. [facility]'s Medical CenterComment on above:Performed By: #### MG ####[facility] ([address] [address] VIRMagnesium [Mass/Vol]1.9 mg/dLNormal1.8-2.6ProHca [facility] Healthcare North CypressComment on above:Performed By: #### MG ####[facility] ([address] [address] VIRBEDSIDE GLUCOSEon 66-20-9877Pgnfcso [Mass/Vol]146 mg/wYFqes61-76 [facility] CenterComment on above:Performed By: #### BEDG ####[facility] ([address] VIRGlucose [Mass/Vol]153 mg/dEOdkj13-90HpqAjanozSt. Mary's Medical CenterComment on above:Performed By: #### BEDG ####[facility] ([address] VIRGlucose [Mass/Vol]146 mg/kYYeme52-38SkmOmsnakHca Houston Healthcare North CypressComment on above:Performed By: #### BEDG ####[facility] ([address], [id number] VIRCBC WITH AUTO DIFFERENTIAL on 30-22-0806BIHKCRPQM ABSOLUTE COUNT (10*3/UL) BY AUTOMATED COUNT0.1 10*3/uL Normal0.0-0.2ProMedica Miller Children'S HospitalComment on above:Performed By: #### CBCA ####[facility] ([address], [id number] VIRBASOPHILS RELATIVE PERCENT BY AUTOMATED COUNT0.9 %NormalSt. Mary's Medical CenterComment on above:Performed By: #### CBCA ####[address], [id number] VIRCELLAVISION DIFFERENTIAL TYPEAUTOMATED DIFFERENTIALNormalSt. Mary's Medical CenterComment on above: Performed By: #### CBCA ####[facility] ([address], [id number] VIREosinophils (Bld) [#/Vol]0.2 10*3/uLNormal0.0-0.4 [facility] Medical CenterComment on above:Performed By: #### CBCA ####[facility] ([address], [id number] VIR EOSINOPHILS RELATIVE PERCENT BY AUTOMATED COUNT3.2 %NormalSt. Mary's Medical CenterComment on above:Performed By: #### CBCA ####[facility] ([address], [id number] VIRErythrocyte distribution width (RBC) [Ratio]19.8 %High11.5-15St. Mary's Medical CenterComment on above: Performed By: #### CBCA ####[facility] ([address], [id number] VIRHematocrit (Bld) [Volume fraction]23.1 %Ghu24-00 St[facility]'s Medical CenterComment on above:Performed By: #### CBCA ####[facility] ([address], [id number] VIRHemoglobin (Bld) [Mass/Vol]7.4 g/dLLow11.7-15.5PKeenan Private HospitalComment on above: Performed By: #### CBCA ####[facility] ([address], [id number] VIRLYMPHOCYTES ABSOLUTE COUNT (10*3/UL) BY AUTOMATED COUNT1.0 10*3/uLNormal1.0-3.5PKeenan Private HospitalComchelsea hospital on above: Performed By: #### CBCA ####[facility] ([address], [id number] VIRLYMPHOCYTES RELATIVE PERCENT BY AUTOMATED COUNT12.8 %NormalProHca Houston Healthcare North CypressComment on above:Performed By: #### CBCA ####[facility] ([address], [id number] VIRMCH (RBC) [Entitic mass]24.8 nhFua26-92HoxOjnsvtSt. Mary's Medical CenterComment on above:Performed By: #### CBCA ####[facility] ([address], [id number] VIRMCHC (RBC) [Mass/Vol]32.2 g/bCDbmqjv99-39 [facility] CenterComchelsea hospital on above:Performed By: #### CBCA ####[facility] ([address], [id number] VIRMCV (RBC) [Entitic vol]77 dDMnb51-038JfrBlwtuaSt. Mary's Medical CenterComment on above:Performed By: #### CBCA ####[facility] ([address], [id number] VIRMONOCYTES ABSOLUTE COUNT (10*3/UL) BY AUTOMATED COUNT1.0 10*3/uLHigh0.0-0.9St. [facility]'s Medical CenterComment on above:Performed By: #### CBCA ####[facility] ([facility])[address] [place] [address] [place] [address] VIRMONOCYTES RELATIVE PERCENT BY AUTOMATED COUNT12.8 %NormalSt. Mary's Medical CenterComment on above:Performed By: #### CBCA ####[facility] ([facility])[address] [place] [address] AVE.[place], [id number] VIRNEUTROPHILS ABSOLUTE COUNT BY AUTOMATED COUNT5.3 10*3/uLNormal1.5-6.6St. [facility]'s Medical CenterComment on above:Performed By: #### CBCA ####[facility] ([address], [id number] VIRNEUTROPHILS RELATIVE PERCENT BY AUTOMATED COUNT70.3 %NormalSt. Mary's Medical CenterComment on above:Performed By: #### CBCA ####[facility] ([address], [id number] VIRPlatelet mean volume (Bld) [Entitic vol]6.8 fLLow7-12PTerrebonne General Medical Centerica Miller Children'S HospitalComment on above:Performed By: #### CBCA ####[facility] ([address], [id number] VIRPlatelets (Bld) [#/Vol]446 10*3/rWStybxi455-121LusKrjokm [facility] Comment on above:Performed By: #### CBCA ####[facility] ([address], [id number] VIRRBC COUNT3.00 X10E12/LLow3.8-5.2 [facility] CenterComment on above:Performed By: #### CBCA ####[facility] ([address], [id number] VIRWBC (Bld) [#/Vol]7.5 10*3/uLNormal4-11ProHca [facility] Healthcare North CypressComment on above: Performed By: #### CBCA ####[facility] ([address], [id number] VIRCOMPREHENSIVE METABOLIC PANELon 63-64-0411Imhnisc [Mass/Vol]2.9 g/dLLow3.2-5.3PSt. Anthony Summit Medical Center HospitalComment on above:Performed By: #### CMP ####[facility] ([place] [address] [place] [address] VIRALP [Catalytic activity/Vol]58 U/HOmfoja05-660LowOyqryhHca Houston Healthcare North CypressComment on above:Performed By: #### CMP ####[facility] ([place] [address] [place] [address] VIRALT [Catalytic activity/Vol]12 U/LNormal<=31PKeenan Private HospitalComment on above: Performed By: #### CMP ####[facility] ([address] [place] [address] VIRAnion gap [Moles/Vol]11 mmol/LNormal5-15ProHca [facility] Healthcare North CypressComment on above:Performed By: #### CMP ####[facility] ([place] [address] [place] [address] VIRAST [Catalytic activity/Vol]18 U/LNormal<=41ProHca [facility] Healthcare North CypressComment on above: Performed By: #### CMP ####[facility] ([place] [address] [place] [address] VIRBilirubin [Mass/Vol]0.9 mg/dLNormal0.3-1.2 [facility] CenterComment on above:Performed By: #### CMP ####[facility] ([place] [address] [place] [address] VIRCalcium [Mass/Vol]8.2 mg/dLLow8.5-10.5PKeenan Private HospitalComment on above: Performed By: #### CMP ####[facility] ([facility])[address] [place], [place] [address]E.[place] [address] VIRChloride [Moles/Vol]101 mmol/HDnlppj96-265 ProMUniversity of California, Irvine Medical CenterComment on above:Performed By: #### CMP ####[facility] ([address] [place] [address] VIRCO2 [Moles/Vol]24 mmol/SGirhit53-97YbaGqddvcKeenan Private HospitalComment on above: Performed By: #### CMP ####[facility] ([address] [place] [address] VIRCreatinine [Mass/Vol]0.94 mg/dLNormal0.40-1.00 [facility] CenterComment on above:Result Comment: METHOD TRACEABLE TO IDMS STANDARDPerformed By: #### CMP ####[facility] ([address] [address] VIRGFR/1.73 sq M.predicted among non- blacks MDRD (S/P/Bld) [Vol rate/Area]67 mL/min/{1.73_m2}Normal>=60ProHca [facility] Healthcare North CypressComment on above:Result Comment: eGFR not reported due to non- numeric value for Creatinine.Reported eGFR is based ontheCKD-EPI 2021 equation that doesnot use a race coefficient.Performed By: #### CMP ####[facility] ([address] [place] [address] VIRGlucose [Mass/Vol]126 mg/oDOryb50-20JjeYasnivHca Houston Healthcare North CypressComment on above:Performed By: #### CMP ####[facility] ([address] [place] [address] VIRPotassium [Moles/Vol]4.5 mmol/LNormal3.5-5.0ProHca [facility] Healthcare North CypressComment on above:Performed By: #### CMP ####[facility] ([address] [place] [address] VIRProtein [Mass/Vol]5.8 g/dLLow6.0-8.0ProHca [facility] Healthcare North CypressComment on above:Performed By: #### CMP ####[facility] ([address] [place] [address] VIRSodium [Moles/Vol]136 mmol/UFoeogp203-293SfmJjmgjk [facility] HospitalComment on above:Performed By: #### CMP ####[facility] ([address] [place] [address] VIRUrea nitrogen [Mass/Vol]14 mg/dLNormal5-27ProHca [facility] Healthcare North CypressComment on above:Performed By: #### CMP ####[facility] ([address] [place] [address] VIRHEMOGLOBIN AND HEMATOCRIT, BLOODon 85-00-5952Zroytpdcky (Bld) [Volume fraction]20.1 %Fur82-24NeiJxgpxuSt. Mary's Medical CenterComment on above:Performed By: #### HH ####[facility] ([address] [place] [address] VIRHemoglobin (Bld) [Mass/Vol]6.3 g/dL Critically low11.7-15.5ProMedica Miller Children'S HospitalComment on above:Performed By: #### HH ####[facility] ([address] [place] [address] VIRHematocrit (Bld) [Volume fraction]21.3 %Igt40-48IkbOufetz [facility] HospitalComment on above:Performed By: #### HH ####[facility] ([address] [place] [address] VIRHemoglobin (Bld) [Mass/Vol]6.8 g/dLCritically low11.7-15.5PKeenan Private HospitalComment on above:Performed By: #### HH ####[facility] ([address] [place] [address] VIRMAGNESIUMon 86-73-5097Teaobjtrj [Mass/Vol] 2.0 mg/dLNormal1.8-2.6ProHca [facility] Healthcare North CypressComment on above:Performed By: #### MG ####[facility] ([address] [address] VIRPOTASSIUMon 47-97-5470Lrdihyigs [Moles/Vol]3.5 mmol/LNormal3.5-5.0 [facility] CenterComment on above:Performed By: #### K ####[facility] ([address] [address] VIRTYPE AND SCREENon 37-49-2346AIN_BQQREIRanfxyVmwTznaoa [facility] HospitalComment on above: Performed By: #### TSC ####[facility] ([address] [address] VIRRH_INTEPPositiveNormalProHca [facility] Comment on above:Performed By: #### TSC ####[facility] ([address] [address] VIRBEDSIDE GLUCOSEon 58-92-4570Fcwqbfp [Mass/Vol]118 mg/jSAbyd55-09QhuYwjgglHca Houston Healthcare North CypressComment on above: Performed By: #### BEDG ####[address] VIRCBC WITH AUTO DIFFERENTIALon 69-40-9854OIGZWHSGD ABSOLUTE COUNT (10*3/UL) BY AUTOMATED COUNT0.1 10*3/uLNormal0.0-0.2PSt. Anthony [facility] Center HospitalComment on above:Performed By: #### CBCA ####[facility] ([address], [id number] VIRBASOPHILS RELATIVE PERCENT BY AUTOMATED COUNT0.9 %NormalSt. Mary's Medical CenterComment on above:Performed By: #### CBCA ####[facility] ([address], [id number] VIRCELLAVISION DIFFERENTIAL TYPEAUTOMATED DIFFERENTIALNormalProHca [facility] Healthcare North CypressComment on above:Performed By: #### CBCA ####[facility] ([address] [place] [address] VIREosinophils (Bld) [#/Vol]0.1 10*3/uLNormal0.0-0.4St. [facility]'s Medical CenterComment on above:Performed By: #### CBCA ####[facility] ([address], [id number] VIREOSINOPHILS RELATIVE PERCENT BY AUTOMATED COUNT0.8 %NormalSt. Mary's Medical CenterComment on above: Performed By: #### CBCA ####[facility] ([address], [id number] VIRErythrocyte distribution width (RBC) [Ratio]19.9 % High11.5-15St. [facility]'s Medical CenterComment on above:Performed By: #### CBCA ####[facility] ([address], [id number] VIRHematocrit (Bld) [Volume fraction]24.3 %Nvx46-10PnhOzvsuxHca [facility] Healthcare [facility] Cypress Comment on above:Performed By: #### CBCA ####[facility] ([address], [id number] VIRHemoglobin (Bld) [Mass/Vol]8.0 g/dL Low11.7-15.5Pro[facility]ica [facility] HospitalComment on above:Performed By: #### CBCA ####[facility] ([facility])[address] [place], [place] [address]E.[place], [id number] VIRLYMPHOCYTES ABSOLUTE COUNT (10*3/UL) BY AUTOMATED COUNT0.8 10*3/uLLow1.0-3.5 [facility] CenterComment on above:Performed By: #### CBCA ####[facility] ([facility])[address] [place], [place] [address]E.[place], [id number] VIR LYMPHOCYTES RELATIVE PERCENT BY AUTOMATED COUNT9.0 %NormalProHca Houston Healthcare North CypressComment on above:Performed By: #### CBCA ####[facility] ([facility])[address] [place], [place] [address]E.[place], [id number] VIRMCH (RBC) [Entitic mass] 25.3 trGno16-20KkvClpvfwHca Houston Healthcare North CypressComment on above:Performed By: #### CBCA ####[facility] ([facility])[address] [place], [place] [address], [place] [address] VIRMCHC (RBC) [Mass/Vol]32.9 g/fDTgqpex45-32HrrBlwepuSt. Mary's Medical Center Comment on above:Performed By: #### CBCA ####[facility] ([facility])[address] [place], [place] [address], [id number] VIRMCV (RBC) [Entitic vol]77 fLLow 80-100ProHca [facility] Healthcare North CypressComment on above:Performed By: #### CBCA ####[facility] ([facility])[address] [place], [place] [address]E.[place], [id number] VIRMONOCYTES ABSOLUTE COUNT (10*3/UL) BY AUTOMATED COUNT0.9 10*3/uLNormal0.0-0.9 [facility] CenterComment on above:Performed By: #### CBCA ####[facility] ([facility])[address] [place] [address] AVE.[place], [id number] VIRMONOCYTES RELATIVE PERCENT BY AUTOMATED COUNT9.8 %NormalProHca Houston Healthcare North CypressComment on above:Performed By: #### CBCA ####[facility] ([facility])[address] [place] [address] AVE.[place], [id number] VIRNEUTROPHILS ABSOLUTE COUNT BY AUTOMATED COUNT7.3 10*3/uLHigh1.5-6.6St. Mary's Medical CenterComment on above: Performed By: #### CBCA ####[facility] ([facility])[address] [place] [address] AVE.[place], [id number] VIRNEUTROPHILS RELATIVE PERCENT BY AUTOMATED COUNT79.5 %NormalSt. Mary's Medical CenterComment on above:Performed By: #### CBCA ####[facility] ([address], [id number] VIRPlatelet mean volume (Bld) [Entitic vol]7.0 fLNormal7-12PKeenan Private HospitalComment on above:Performed By: #### CBCA ####[facility] ([address], [id number] VIRPlatelets (Bld) [#/Vol]476 10*3/xLUclo300-544JjjWnpvkhHca Houston Healthcare North CypressComment on above:Performed By: #### CBCA ####[facility] ([address] [place] [address] VIRRBC COUNT3.16 X10E12/LLow3.8-5.2PKeenan Private HospitalComment on above:Performed By: #### CBCA ####[facility] ([address], [id number] VIRWBC (Bld) [#/Vol]9.2 10*3/uLNormal4-11 St[facility] CenterComment on above:Performed By: #### CBCA ####[facility] ([address], [id number] VIR COMPREHENSIVE METABOLIC PANELon [id number] [Mass/Vol]3.2 g/dLNormal 3.2-5.3PKeenan Private HospitalComment on above:Performed By: #### CMP ####[facility] ([address], [place] [address] VIRALP [Catalytic activity/Vol]66 U/FIwhvbv60-767AzjYmcopaSt. Mary's Medical Center Comment on above:Performed By: #### CMP ####[facility] ([place] [address] [place] [address] VIRALT [Catalytic activity/Vol]15 U/L Normal<=31PKeenan Private HospitalComment on above:Performed By: #### CMP ####[facility] ([address], [place] [address] VIRAnion gap [Moles/Vol]15 mmol/LNormal5-15[facility] Comment on above:Performed By: #### CMP ####[facility] ([address] [place] [address] VIRAST [Catalytic activity/Vol]24 U/L Normal<=41ProHca Houston Healthcare North CypressComment on above:Performed By: #### CMP ####[facility] ([place] [address] [address] VIRBilirubin [Mass/Vol]1.1 mg/dLNormal0.3-1.2PKeenan Private Hospital Comment on above:Performed By: #### CMP ####[facility] ([place] [address] [place] [address] VIRCalcium [Mass/Vol]8.4 mg/dLLow 8.5-10.5PKeenan Private HospitalComment on above:Performed By: #### CMP ####[facility] ([place] [address], [place] [address] VIRChloride [Moles/Vol]92 mmol/BFhr01-451WdyLmwgixHca Houston Healthcare North CypressComment on above:Performed By: #### CMP ####[facility] ([address] [place] [address] VIRCO2 [Moles/Vol]25 mmol/HFfjekp16-29 ProMUniversity of California, Irvine Medical CenterComment on above:Performed By: #### CMP ####[facility] ([address] [address] VIR Creatinine [Mass/Vol]0.97 mg/dLNormal0.40-1.00ProHca Houston Healthcare North CypressComment on above:Result Comment: METHOD TRACEABLE TO IDMS STANDARDPerformed By: #### CMP ####[facility] ([address] [address] VIRGFR/1.73 sq M.predicted among non-blacks MDRD (S/P/Bld) [Vol rate/Area] 65 mL/min/{1.73_m2}Normal>=60ProHca Houston Healthcare North CypressComment on above:Result Comment: Reported eGFR is based on theCKD-EPI 2020 equation that doesnot use a race coefficient.Performed By: #### CMP ####[facility] ([address] [place] [address] VIRGlucose [Mass/Vol]131 mg/dLHigh 65-99ProHca Houston Healthcare North CypressComment on above:Performed By: #### CMP ####[facility] ([address] [address] VIRPotassium [Moles/Vol]2.5 mmol/LCritically low3.5-5.0ProHca Houston Healthcare North CypressComment on above:Performed By: #### CMP ####[facility] ([address] [address] VIRProtein [Mass/Vol]6.3 g/dL Normal6.0-8.0St. Mary's Medical CenterComment on above:Performed By: #### CMP ####[facility] ([address], [place] [address] VIRSodium [Moles/Vol]132 mmol/TMth228-482KmtAgxjlxHca Houston Healthcare North CypressComment on above:Performed By: #### CMP ####[facility] ([address] [place] [address] VIRUrea nitrogen [Mass/Vol]18 mg/dLNormal5-27 ProMUniversity of California, Irvine Medical CenterComment on above:Performed By: #### CMP ####[facility] ([address] [address] VIRCT ABDOMEN AND PELVIS W CONTon 49-97-6912UU ABDOMEN AND PELVIS W CONTNormal St. Mary's Medical CenterLIPASEon 60-25-5379Srxmch [Catalytic activity/Vol]37 U/YTxocnf14-59JzxJqvnagHca Houston Healthcare North CypressComment on above:Performed By: #### LIPA ####[facility] ([address] VIRMAGNESIUMon 81-97-1400Qngycjyzr [Mass/Vol]2.2 mg/dLNormal1.8-2.6St. Mary's Medical CenterComment on above:Performed By: #### MG ####[facility] ([address] [address] VIRPOTASSIUMon 02-21-3705Hnfhkglcj [Moles/Vol]3.0 mmol/LLow3.5-5.0[facility] Comment on above:Performed By: #### K ####[facility] ([address] [address] VIRTROP I, HIGH SENSITIVITY 1 HOURon 09-47-9040BAMYYNRV I, HIGH NBMTRCKEOQF35 ng/LNormal<16[facility] Comment on above:Performed By: #### TNIHS1 ####[facility] ([address] [address] VIRTROPONIN I, HIGH SENSITIVITY 0 HOURon 08-79-2816EHGDUKKK I, HIGH ZUEEUCXHYEZ83 ng/LNormal<16 [facility] CenterComment on above:Performed By: #### TNIHS0 ####[facility] ([address] [address] VIRBEDSIDE GLUCOSEon 24-55-7445Wnrmhxp [Mass/Vol]123 mg/yTFdgd84-91 [facility] CenterComment on above:Performed By: #### BEDG ####[facility] ([address] [id number] VIRCBC WITH AUTO DIFFERENTIALon 98-70-9847FERLWZELC ABSOLUTE COUNT (10*3/UL) BY AUTOMATED COUNT0.1 10*3/uLNormal0.0-0.2PKeenan Private HospitalComment on above: Performed By: #### CBCA ####[facility] ([address] [id number] VIRBASOPHILS RELATIVE PERCENT BY AUTOMATED COUNT0.7 % NormalProHca Houston Healthcare North CypressComment on above:Performed By: #### CBCA ####[facility] ([address] [id number] VIRCELLAVISION DIFFERENTIAL TYPEAUTOMATED DIFFERENTIALNormalProHca Houston Healthcare North CypressComment on above:Performed By: #### CBCA ####[facility] ([address] [id number] VIREosinophils (Bld) [#/Vol] 0.2 10*3/uLNormal0.0-0.4St. Mary's Medical CenterComment on above:Performed By: #### CBCA ####[facility])[address] [place] [address] VIREOSINOPHILS RELATIVE PERCENT BY AUTOMATED COUNT2.3 % NormalSt. Mary's Medical CenterComment on above:Performed By: #### CBCA ####[facility] ([address], [id number] VIRErythrocyte distribution width (RBC) [Ratio]19.9 %High11.5-15ProHca Houston Healthcare North CypressComment on above:Performed By: #### CBCA ####[facility] ([address], [id number] VIRHematocrit (Bld) [Volume fraction]24.3 %Nba07-36YfbPqznaeHca Houston Healthcare North CypressComment on above: Performed By: #### CBCA ####[facility] ([address], [id number] VIRHemoglobin (Bld) [Mass/Vol]7.8 g/dLLow11.7-15.5 [facility] Medical CenterComment on above:Performed By: #### CBCA ####[facility] ([address], [id number] VIR LYMPHOCYTES ABSOLUTE COUNT (10*3/UL) BY AUTOMATED COUNT0.9 10*3/uLLow1.0-3.5 [facility] Medical CenterComment on above:Performed By: #### CBCA ####[facility] ([address], [id number] VIR LYMPHOCYTES RELATIVE PERCENT BY AUTOMATED COUNT8.2 %NormalProHca Houston Healthcare North CypressComment on above:Performed By: #### CBCA ####[facility] ([address], [id number] VIRMCH (RBC) [Entitic mass] 25.2 irHrb50-99RsbXzipak [place] HospitalComment on above:Performed By: #### CBCA ####[facility] ([facility])[address] [place], [place] [address]E.[place], [place] [address] VIRMCHC (RBC) [Mass/Vol]32.0 g/gDPxwqmo36-76IjlMplfspSt. Mary's Medical Center Comment on above:Performed By: #### CBCA ####[facility] ([address], [id number] VIRMCV (RBC) [Entitic vol]79 fLLow 80-100ProHca Houston Healthcare North CypressComment on above:Performed By: #### CBCA ####[facility] ([address], [id number] VIRMONOCYTES ABSOLUTE COUNT (10*3/UL) BY AUTOMATED COUNT0.8 10*3/uLNormal0.0-0.9 [facility] Medical CenterComment on above:Performed By: #### CBCA ####[facility] ([address], [id number] VIRMONOCYTES RELATIVE PERCENT BY AUTOMATED COUNT7.2 %NormalSt. Mary's Medical CenterComment on above:Performed By: #### CBCA ####[facility] ([address], [id number] VIRNEUTROPHILS ABSOLUTE COUNT BY AUTOMATED COUNT8.8 10*3/uLHigh1.5-6.6St. Mary's Medical CenterComment on above: Performed By: #### CBCA ####[facility] ([address], [id number] VIRNEUTROPHILS RELATIVE PERCENT BY AUTOMATED COUNT81.6 %NormalSt. Mary's Medical CenterComment on above:Performed By: #### CBCA ####[facility] ([address], [id number] VIRPlatelet mean volume (Bld) [Entitic vol]7.1 fLNormal7-12ProMedica Miller Children'S HospitalComment on above:Performed By: #### CBCA ####[facility] ([facility] [address], [id number] VIRPlatelets (Bld) [#/Vol]329 10*3/jHFoaled591-140CltPwrxse [place] HospitalComment on above:Performed By: #### CBCA ####[facility] ([facility] [address], [id number] VIRRBC COUNT3.08 X10E12/LLow3.8-5.2PKeenan Private HospitalComment on above:Performed By: #### CBCA ####[facility] ([facility])[address] [place], [place] [address]VE[address], [id number] VIRWBC (Bld) [#/Vol]10.8 10*3/uLNormal4-11ProHca [facility] North CypressComment on above:Performed By: #### CBCA ####[facility] ([facility])[address] [place], [place] [address] [place] [address] VIRCOMPREHENSIVE METABOLIC PANELon 04-83-0268Vnprdea [Mass/Vol]3.0 g/dLLow 3.2-5.3PKeenan Private HospitalComment on above:Performed By: #### CMP ####[facility] ([facility])[address] [place], [place] [address].[place], [place] [address] VIRALP [Catalytic activity/Vol]68 U/MSxpmim34-353QvhTmcbnuHca Houston [facility] Comment on above:Performed By: #### CMP ####[facility] ([facility])[address] [place] [address] [place] [address] VIRALT [Catalytic activity/Vol]15 U/L Normal<=31PKeenan Private HospitalComment on above:Performed By: #### CMP ####[facility] ([facility] [address], [place] [address] VIRAnion gap [Moles/Vol]11 mmol/LNormal5-15ProAt[facility] Comment on above:Performed By: #### CMP ####[facility] ([address] [place] [address] VIRAST [Catalytic activity/Vol]17 U/L Normal<=41ProHca [facility] North CypressComment on above:Performed By: #### CMP ####[facility] ([address], [place] [address] VIRBilirubin [Mass/Vol]0.9 mg/dLNormal0.3-1.2PKeenan Private Hospital Comment on above:Performed By: #### CMP ####[facility] ([address] [place] [address] VIRCalcium [Mass/Vol]8.0 mg/dLLow 8.5-10.5PKeenan Private HospitalComment on above:Performed By: #### CMP ####[facility] ([address], [place] [address] VIRChloride [Moles/Vol]97 mmol/PLyo06-021FqdTzffnmHca Houston Healthcare North CypressComment on above:Performed By: #### CMP ####[facility] ([address] [place] [address] VIRCO2 [Moles/Vol]26 mmol/CGlgunq18-96 [facility] CenterComment on above:Performed By: #### CMP ####[facility] ([address] [place] [address] VIR Creatinine [Mass/Vol]0.73 mg/dLNormal0.40-1.00ProHca [facility] North CypressComment on above:Result Comment: METHOD TRACEABLE TO IDMS STANDARDPerformed By: #### CMP ####[facility] ([address], [place] [address] VIREGFR (CKD-EPI) NON-RACE DEPENDENT>^90Normal>=60ProHca Houston Healthcare North CypressComment on above:Result Comment: eGFR not reported due to non-numeric value for Creatinine.Reported eGFR is based ontheCKD-EPI 2020 equation that doesnot use a race coefficient.Performed By: #### CMP ####[facility] ([address] [place] [address] VIRGlucose [Mass/Vol]118 mg/iSXvuv42-29EzaWrcsaeHca Houston Healthcare North CypressComment on above:Performed By: #### CMP ####[facility] ([address] [place] [address] VIRPotassium [Moles/Vol]3.4 mmol/LLow3.5-5.0ProHca [facility] North CypressComment on above:Performed By: #### CMP ####[address] [place] [address] VIRProtein [Mass/Vol]6.1 g/dLNormal6.0-8.0ProHca [facility] North CypressComment on above: Performed By: #### CMP ####[address] [place] [address] VIRSodium [Moles/Vol]134 mmol/WTkstgq020-994EuzWztjpb [facility] HospitalComment on above:Performed By: #### CMP ####[address] [place] [place] [address] VIRUrea nitrogen [Mass/Vol]18 mg/dLNormal5-27ProHca [facility] North CypressComment on above:Performed By: #### CMP ####[facility] ([address] [place] [address] VIRMAGNESIUMon 13-60-4813Oydwradjv [Mass/Vol]2.0 mg/dL Normal1.8-2.6ProHca [facility] North CypressComment on above:Performed By: #### MG ####[facility] ([address], [place] [address] VIRBEDSIDE GLUCOSEon 08-15-0428Ihydrxm [Mass/Vol]134 mg/uNVesy79-25KuhBmycjsSt. Mary's Medical CenterComment on above:Performed By: #### BEDG ####[facility] ([address], [id number] VIRGlucose [Mass/Vol] 145 mg/yLYpfm12-33YjvZbuheyHca Houston Healthcare North CypressComment on above:Performed By: #### BEDG ####[facility] ([address] [place] [address] VIRGlucose [Mass/Vol]116 mg/uANvpi35-32TraWhtdjnSt. Mary's Medical CenterComment on above:Performed By: #### BEDG ####[facility] ([address], [id number] VIRCBC WITH AUTO DIFFERENTIALon 57-46-5557CYSFKDKZZ ABSOLUTE COUNT (10*3/UL) BY AUTOMATED COUNT0.1 10*3/uLNormal 0.0-0.2PKeenan Private HospitalComment on above:Performed By: #### CBCA ####[facility] ([address], [id number] VIRBASOPHILS RELATIVE PERCENT BY AUTOMATED COUNT1.2 %NormalProHca Houston Healthcare North CypressComment on above:Performed By: #### CBCA ####[facility] ([address], [id number] VIRCELLAVISION DIFFERENTIAL TYPEAUTOMATED DIFFERENTIALNormalSt. Mary's Medical CenterComment on above: Performed By: #### CBCA ####[facility] ([address] [id number] VIREosinophils (Bld) [#/Vol]0.2 10*3/uLNormal0.0-0.4 [facility] Medical CenterComment on above:Performed By: #### CBCA ####[facility] ([address], [id number] VIR EOSINOPHILS RELATIVE PERCENT BY AUTOMATED COUNT2.8 %NormalSt. Mary's Medical CenterComment on above:Performed By: #### CBCA ####[facility] ([address], [id number] VIRErythrocyte distribution width (RBC) [Ratio]19.8 %High11.5-15ProHca [facility] Healthcare North CypressComment on above: Performed By: #### CBCA ####[facility] ([address], [id number] VIRHematocrit (Bld) [Volume fraction]24.6 %Tec90-59 [facility] Medical CenterComment on above:Performed By: #### CBCA ####[facility] ([address], [id number] VIRHemoglobin (Bld) [Mass/Vol]7.8 g/dLLow11.7-15.5PKeenan Private HospitalComment on above: Performed By: #### CBCA ####[facility] ([address], [id number] VIRLYMPHOCYTES ABSOLUTE COUNT (10*3/UL) BY AUTOMATED COUNT1.2 10*3/uLNormal1.0-3.5PKeenan Private HospitalComment on above: Performed By: #### CBCA ####[facility] ([address], [id number] VIRLYMPHOCYTES RELATIVE PERCENT BY AUTOMATED COUNT13.9 %NormalSt. Mary's Medical CenterComment on above:Performed By: #### CBCA ####[facility] ([address], [id number] VIRMCH (RBC) [Entitic mass]25.2 vdAed03-02OfmAznqel [facility]k Grove HospitalComment on above:Performed By: #### CBCA ####[facility] ([address], [id number] VIRMCHC (RBC) [Mass/Vol]31.7 g/rVFmk97-38 [facility] CenterComment on above:Performed By: #### CBCA ####[facility] ([address], [id number] VIRMCV (RBC) [Entitic vol]79 eQEsr28-261EblGpnkglHca Houston Healthcare North CypressComment on above:Performed By: #### CBCA ####[facility] ([address], [id number] VIRMONOCYTES ABSOLUTE COUNT (10*3/UL) BY AUTOMATED COUNT0.6 10*3/uLNormal0.0-0.9St. [facility]'s Medical CenterComment on above:Performed By: #### CBCA ####[facility] ([address], [id number] VIRMONOCYTES RELATIVE PERCENT BY AUTOMATED COUNT7.3 %Normal [facility]'s Medical CenterComment on above:Performed By: #### CBCA ####[facility] ([address], [id number] VIR NEUTROPHILS ABSOLUTE COUNT BY AUTOMATED COUNT6.2 10*3/uLNormal1.5-6.6St. [facility]'s Medical CenterComment on above:Performed By: #### CBCA ####[facility] ([address], [id number] VIRNEUTROPHILS RELATIVE PERCENT BY AUTOMATED COUNT74.8 %NormalSt. Mary's Medical CenterComment on above:Performed By: #### CBCA ####[facility] ([address], [id number] VIRPlatelet mean volume (Bld) [Entitic vol]7.8 fLNormal7-12PKeenan Private HospitalComment on above:Performed By: #### CBCA ####[facility] ([address], [place] VIRPlatelets (Bld) [#/Vol]273 10*3/nXKcdyrb523-227ZhtPlwxxu [facility] HospitalComment on above:Performed By: #### CBCA ####[facility] ([facility])[address] [place], [place] [address], [place] VIRRBC COUNT3.10 X10E12/LLow3.8-5.2PKeenan Private HospitalComment on above:Performed By: #### CBCA ####[facility] ([address] [place] [address] VIRWBC (Bld) [#/Vol]8.3 10*3/uLNormal4-11ProHca [facility] North CypressComment on above:Performed By: #### CBCA ####[facility] ([address], [place] VIRCOMPREHENSIVE METABOLIC PANELon 54-23-7004Orqpskx [Mass/Vol]3.0 g/dLLow3.2-5.3PKeenan Private HospitalComment on above:Performed By: #### CMP ####[facility] ([address] [place] [address] VIRALP [Catalytic activity/Vol]68 U/LNormal 39-130ProHca [facility] North CypressComment on above:Performed By: #### CMP ####[facility] ([address], [place] [address] VIRALT [Catalytic activity/Vol]12 U/LNormal<=31PKeenan Private Hospital Comment on above:Performed By: #### CMP ####[facility] ([facility])[address] [place], [place] [address] [place] [address] VIRAnion gap [Moles/Vol]14 mmol/L Normal5-15ProHca [facility] North CypressComment on above:Performed By: #### CMP ####[facility] ([facility] [address], [place] [address] VIRAST [Catalytic activity/Vol]14 U/LNormal<=41[facility] Comment on above:Performed By: #### CMP ####[facility] ([place] [address] [place] [address] VIRBilirubin [Mass/Vol]0.8 mg/dLNormal 0.3-1.2PKeenan Private HospitalComment on above:Performed By: #### CMP ####[facility] ([address], [place] [address] VIRCalcium [Mass/Vol]8.2 mg/dLLow8.5-10.5PKeenan Private HospitalComment on above:Performed By: #### CMP ####[facility] ([address] [place] [address] VIRChloride [Moles/Vol]99 mmol/UHfmbhe64-099 [facility] CenterComment on above:Performed By: #### CMP ####[facility] ([address] [place] [address] VIRCO2 [Moles/Vol]26 mmol/JLkjees13-26ImnPvymkzKeenan Private HospitalComment on above: Performed By: #### CMP ####[facility] ([address] [place] [address] VIRCreatinine [Mass/Vol]0.81 mg/dLNormal0.40-1.00 [facility] CenterComment on above:Result Comment: METHOD TRACEABLE TO IDMS STANDARDPerformed By: #### CMP ####[facility] ([place] [address] [place] [address] VIRGFR/1.73 sq M.predicted among non- blacks MDRD (S/P/Bld) [Vol rate/Area]81 mL/min/{1.73_m2}Normal>=60ProHca [facility] Healthcare North CypressComment on above:Result Comment: eGFR not reported due to non- numeric value for Creatinine.Reported eGFR is based ontheCKD-EPI 2020 equation that doesnot use a race coefficient.Performed By: #### CMP ####[facility] ([address] [place] [address] VIRGlucose [Mass/Vol]108 mg/sPRubi92-48SzuXnquabHca Houston Healthcare North CypressComment on above:Performed By: #### CMP ####[facility] ([address] [place] [address] VIRPotassium [Moles/Vol]3.0 mmol/LLow3.5-5.0ProHca [facility] CypressComment on above:Performed By: #### CMP ####[facility] ([address] [place] [address] VIRProtein [Mass/Vol]6.2 g/dLNormal6.0-8.0ProHca [facility] North CypressComment on above: Performed By: #### CMP ####[address] [place] [address] VIRSodium [Moles/Vol]139 mmol/NJwguxj663-813IglTultox [facility] HospitalComment on above:Performed By: #### CMP ####[facility] ([address] [place] [address] VIRUrea nitrogen [Mass/Vol]20 mg/dLNormal5-27ProHca [facility] CypressComment on above:Performed By: #### CMP ####[facility] ([address] [place] [address] VIRMAGNESIUMon 02-12-3358Korqcksuu [Mass/Vol]2.2 mg/dL Normal1.8-2.6ProHca [facility] North CypressComment on above:Performed By: #### MG ####[facility] ([address], [place] [address] VIRPOTASSIUMon 99-97-2454Rheygiusc [Moles/Vol]2.6 mmol/LCritically low 3.5-5.0ProHca [facility] North CypressComment on above:Performed By: #### K ####[facility] ([address] [address] VIRBEDSIDE GLUCOSEon 11-69-5342Oobqlja [Mass/Vol]119 mg/oNRlph64-38CilHznspaHca Houston Healthcare North CypressComment on above:Performed By: #### BEDG ####[facility] ([address] VIRGlucose [Mass/Vol] 91 mg/nLYzuxoc55-85JfuJsqmliHca Houston Healthcare North CypressComment on above:Performed By: #### BEDG ####[facility] ([address] VIRGlucose [Mass/Vol]113 mg/aTHqhy50-16WaxFlgpnqHca Houston Healthcare North CypressComment on above:Performed By: #### BEDG ####[facility] ([address] VIRC-REACTIVE PROTEINon 5C REACTIVE PROTEIN7.8 mg/dLHigh<=0.7ProHca [facility] North CypressComment on above: Performed By: #### CRP ####[facility] ([address] [address] VIRCBC WITH AUTO DIFFERENTIALon 84-89-4415UUHFRAXTX ABSOLUTE COUNT (10*3/UL) BY AUTOMATED COUNT0.1 10*3/uLNormal0.0-0.2ProMedSt. Joseph's Medical CenterComment on above:Performed By: #### CBCA ####[facility] ([address], [id number] VIRBASOPHILS RELATIVE PERCENT BY AUTOMATED COUNT0.7 %NormalSt. Mary's Medical CenterComment on above:Performed By: #### CBCA ####[facility] ([address], [id number] VIRCELLAVISION DIFFERENTIAL TYPEAUTOMATED DIFFERENTIALNormalProHca [facility] CypressComment on above:Performed By: #### CBCA ####[facility] ([address] [place] [address] VIREosinophils (Bld) [#/Vol]0.3 10*3/uLNormal0.0-0.4St. Mary's Medical CenterComment on above:Performed By: #### CBCA ####[facility] ([address], [id number] VIREOSINOPHILS RELATIVE PERCENT BY AUTOMATED COUNT3.4 %NormalSt. Mary's Medical CenterComment on above: Performed By: #### CBCA ####[facility] ([address], [id number] VIRErythrocyte distribution width (RBC) [Ratio]20.2 % High11.5-15St. Mary's Medical CenterComment on above:Performed By: #### CBCA ####[facility] ([address], [id number] VIRHematocrit (Bld) [Volume fraction]23.4 %Unu45-73OziGxhzcnHca [facility] [place] Comment on above:Performed By: #### CBCA ####[facility] ([address], [id number] VIRHemoglobin (Bld) [Mass/Vol]7.6 g/dL Low11.7-15.5ProMedica Miller Children'S HospitalComment on above:Performed By: #### CBCA ####[facility] ([facility])[address] [place], [place] [address] [address]VE.[place], [id number] VIRLYMPHOCYTES ABSOLUTE COUNT (10*3/UL) BY AUTOMATED COUNT1.4 10*3/uLNormal 1.0-3.5PKeenan Private HospitalComment on above:Performed By: #### CBCA ####[facility] ([facility])[address] [place], [place] [address], [id number] VIRLYMPHOCYTES RELATIVE PERCENT BY AUTOMATED COUNT15.6 %NormalProHca Houston Healthcare North CypressComment on above:Performed By: #### CBCA ####[facility] ([facility])[address] [place] [address] [address], [id number] VIRMCH (RBC) [Entitic mass] 25.7 [id number]. Mary's Medical CenterComment on above:Performed By: #### CBCA ####[facility] ([facility])[address] [place] [address] [place] [address] VIRMCHC (RBC) [Mass/Vol]32.4 g/nURdhdud22-83JvrUswogpSt. Mary's Medical Center Comment on above:Performed By: #### CBCA ####[facility] ([facility])[address] [place] [address] [address], [id number] VIRMCV (RBC) [Entitic vol]79 fLLow 80-100St. Mary's Medical CenterComment on above:Performed By: #### CBCA ####[facility] ([facility])[address] [place] [address] [address], [id number] VIRMONOCYTES ABSOLUTE COUNT (10*3/UL) BY AUTOMATED COUNT0.7 10*3/uLNormal0.0-0.9 [facility] Mary's Medical CenterComment on above:Performed By: #### CBCA ####[facility] ([facility])[address] [place], [place] [address], [id number] VIRMONOCYTES RELATIVE PERCENT BY AUTOMATED COUNT8.4 %NormalProHca Houston Healthcare North CypressComment on above:Performed By: #### CBCA ####[facility] ([facility])[address] [facility], [id number] VIRNEUTROPHILS ABSOLUTE COUNT BY AUTOMATED COUNT6.2 10*3/uLNormal1.5-6.6ProHca Houston Healthcare North CypressComment on above:Performed By: #### CBCA ####[facility] ([facility])[address] [place], [place] [address], [id number] VIRNEUTROPHILS RELATIVE PERCENT BY AUTOMATED COUNT71.9 %NormalSt. Mary's Medical CenterComment on above:Performed By: #### CBCA ####[facility] ([facility] [place] [address] [address] VIRPlatelet mean volume (Bld) [Entitic vol]7.4 fLNormal7-12PKeenan Private HospitalComment on above:Performed By: #### CBCA ####[facility] ([facility])[address] [place], [place] [address], [id number] VIRPlatelets (Bld) [#/Vol]219 10*3/aOZzkjah775-720CldQpjsih Fremont HospitalComment on above: Performed By: #### CBCA ####[facility] ([facility])[address] [place], [place] [address]REST. [facility], [id number] VIRRBC COUNT2.95 X10E12/LLow3.8-5.2PKeenan Private HospitalComment on above:Performed By: #### CBCA ####[facility] ([address], [id number] VIRWBC (Bld) [#/Vol]8.7 10*3/uLNormal4-11ProSt. Mary'S Medical Center, [facility] HospitalComment on above:Performed By: #### CBCA ####[facility] ([facility] [address] [address] VIRCOMPREHENSIVE METABOLIC PANELon 15-59-5717Bwtvaqy [Mass/Vol]2.8 g/dLLow 3.2-5.3PKeenan Private HospitalComment on above:Performed By: #### CMP ####[facility] ([facility], [place] [address] VIRALP [Catalytic activity/Vol]71 U/GDuxyhx13-455QoiKvfnfuSt. Mary's Medical Center Comment on above:Performed By: #### CMP ####[facility] ([place] [address] [place] [address] VIRALT [Catalytic activity/Vol]12 U/L Normal<=31PKeenan Private HospitalComment on above:Performed By: #### CMP ####[facility] ([place] [address], [place] [address] VIRAnion gap [Moles/Vol]10 mmol/LNormal5-15[facility] Comment on above:Performed By: #### CMP ####[facility] ([place] [address] [place] [address] VIRAST [Catalytic activity/Vol]10 U/L Normal<=41ProHca Houston Healthcare North CypressComment on above:Performed By: #### CMP ####[facility] ([place] [address], [place] [address] VIRBilirubin [Mass/Vol]0.7 mg/dLNormal0.3-1.2PKeenan Private Hospital Comment on above:Performed By: #### CMP ####[facility] ([place] [address] [place] [address] VIRCalcium [Mass/Vol]8.3 mg/dLLow 8.5-10.5PKeenan Private HospitalComment on above:Performed By: #### CMP ####[facility] ([place] [address], [place] [address] VIRChloride [Moles/Vol]102 mmol/IYjgqgy38-404HuwPrxgdlSt. Mary's Medical Center Comment on above:Performed By: #### CMP ####[facility] ([address] [place] [address] VIRCO2 [Moles/Vol]28 mmol/UUtbvcg14-88 ProMUniversity of California, Irvine Medical CenterComment on above:Performed By: #### CMP ####[facility] ([address] [place] [address] VIR Creatinine [Mass/Vol]0.80 mg/dLNormal0.40-1.00St. Mary's Medical CenterComment on above:Result Comment: METHOD TRACEABLE TO IDMS STANDARDPerformed By: #### CMP ####[facility] ([address] [address] VIRGFR/1.73 sq M.predicted among non-blacks MDRD (S/P/Bld) [Vol rate/Area] 82 mL/min/{1.73_m2}Normal>=60ProHca Houston Healthcare North CypressComment on above:Result Comment: eGFR not reported due to non-numeric value for Creatinine.Reported eGFR is based ontheCKD-EPI 1 equation that doesnot use a race coefficient. Performed By: #### CMP ####[facility] ([address] [place] [address] VIRGlucose [Mass/Vol]109 mg/fXMzpd05-78PbjBygkyrHca Houston Healthcare North CypressComment on above:Performed By: #### CMP ####[facility] ([address] [place] [address] VIRPotassium [Moles/Vol]3.2 mmol/LLow3.5-5.0ProHca Houston Healthcare North CypressComment on above: Performed By: #### CMP ####[facility] ([address] [place] [address] VIRProtein [Mass/Vol]5.9 g/dLLow6.0-8.0ProHca Houston Healthcare North CypressComment on above:Performed By: #### CMP ####[facility] ([address] [place] [address] VIRSodium [Moles/Vol]140 mmol/VNdqgbd268-097YciXtjfjm [facility]ont HospitalComment on above: Performed By: #### CMP ####[facility] ([address] [place] [address] VIRUrea nitrogen [Mass/Vol]20 mg/dLNormal5-27 ProMUniversity of California, Irvine Medical CenterComment on above:Performed By: #### CMP ####[facility] ([address] [place] [address] VIRMAGNESIUM on 16-58-1717Vkrklppeh [Mass/Vol]2.2 mg/dLNormal1.8-2.6ProHca Houston Healthcare North CypressComment on above:Performed By: #### MG ####[facility] ([address] [place] [address] VIRPOTASSIUMon 12-09-2024 Potassium [Moles/Vol]3.4 mmol/LLow3.5-5.0ProHca Houston Healthcare North CypressComment on above:Performed By: #### K ####[facility] ([address] [place] [address] VIRBEDSIDE GLUCOSEon 57-47-4748Rfwihsp [Mass/Vol]151 mg/cFIimz60-04DjmMgqvwlHca Houston Healthcare North CypressComment on above:Performed By: #### BEDG ####[facility] ([address], [place] VIRGlucose [Mass/Vol]100 mg/iRInbo96-38AfsQrikbeHca Houston Healthcare North CypressComment on above:Performed By: #### BEDG ####[facility] ([address], [id number] VIRGlucose [Mass/Vol]151 mg/dL Tslu60-76XfnFaioekHca Houston Healthcare North CypressComment on above:Performed By: #### BEDG ####[facility] ([address], [id number] VIRC-REACTIVE PROTEINon 12-08-2024 REACTIVE PROTEIN8.5 mg/dLHigh<=0.7ProHca Houston Healthcare North CypressComment on above:Performed By: #### CRP ####[facility] ([address] [place] [address] VIRCBC WITH AUTO DIFFERENTIALon 42-60-9930QWHACKTWS ABSOLUTE COUNT (10*3/UL) BY AUTOMATED COUNT 0.0 10*3/uLNormal0.0-0.2ProMedSt. Joseph's Medical CenterComment on above:Performed By: #### CBCA ####[facility] ([address], [id number] VIRBASOPHILS RELATIVE PERCENT BY AUTOMATED COUNT0.4 %Normal St. Mary's Medical CenterComment on above:Performed By: #### CBCA ####[facility] ([address], [id number] VIR CELLAVISION DIFFERENTIAL TYPEAUTOMATED DIFFERENTIALNormalProHca Houston Healthcare North CypressComment on above:Performed By: #### CBCA ####[facility] ([address], [id number] VIREosinophils (Bld) [#/Vol] 0.2 10*3/uLNormal0.0-0.4ProHca Houston Healthcare North CypressComment on above:Performed By: #### CBCA ####[facility] ([address], [id number] VIREOSINOPHILS RELATIVE PERCENT BY AUTOMATED COUNT2.2 % NormalProHca Houston Healthcare North CypressComment on above:Performed By: #### CBCA ####[facility] ([address], [id number] VIRErythrocyte distribution width (RBC) [Ratio]20.2 %High11.5-15St. Mary's Medical CenterComment on above:Performed By: #### CBCA ####[facility] ([address], [place] VIRHematocrit (Bld) [Volume fraction]24.2 %Qdt55-40EewItvfssHca Houston Healthcare North CypressComment on above: Performed By: #### CBCA ####[facility] ([address], [id number] VIRHemoglobin (Bld) [Mass/Vol]7.7 g/dLLow11.7-15.5 [facility]'s Medical CenterComment on above:Performed By: #### CBCA ####[facility] ([address], [id number] VIR LYMPHOCYTES ABSOLUTE COUNT (10*3/UL) BY AUTOMATED COUNT1.4 10*3/uLNormal1.0-3.5 [facility] Medical CenterComment on above:Performed By: #### CBCA ####[facility] ([address], [id number] VIR LYMPHOCYTES RELATIVE PERCENT BY AUTOMATED COUNT12.6 %NormalProHca Houston Healthcare North CypressComment on above:Performed By: #### CBCA ####[facility] ([address], [id number] VIRMCH (RBC) [Entitic mass] 25.4 lhNiv77-48ErhFgyltrSt. Mary's Medical CenterComment on above:Performed By: #### CBCA ####[facility] ([address] [place] [address] VIRMCHC (RBC) [Mass/Vol]31.7 g/kAQpy62-65ZiqGaayrfHca Houston Healthcare North CypressComment on above:Performed By: #### CBCA ####[facility] ([facility])[address] [place] [address] AVE.[facility]REST. [facility], [id number] VIRMCV (RBC) [Entitic vol]80 fLNormal 80-100St. Mary's Medical CenterComment on above:Performed By: #### CBCA ####[facility] ([address], [id number] VIRMONOCYTES ABSOLUTE COUNT (10*3/UL) BY AUTOMATED COUNT1.0 10*3/uLHigh0.0-0.9 [facility] on above:Performed By: #### CBCA ####[facility] ([address], [id number] VIRMONOCYTES RELATIVE PERCENT BY AUTOMATED COUNT8.8 %NormalSt. Mary's Medical CenterComchelsea hospital on above:Performed By: #### CBCA ####[facility] ([address], [id number] VIRNEUTROPHILS ABSOLUTE COUNT BY AUTOMATED COUNT8.3 10*3/uLHigh1.5-6.6[facility] on above: Performed By: #### CBCA ####[facility] ([address], [id number] VIRNEUTROPHILS RELATIVE PERCENT BY AUTOMATED COUNT76.0 %NormalSt. Mary's Medical CenterComchelsea hospital on above:Performed By: #### CBCA ####[facility] ([address], [id number] VIRPlatelet mean volume (Bld) [Entitic vol]7.0 fLNormal7-12ProMedica Miller Children'S HospitalComment on above:Performed By: #### CBCA ####[facility] ([address], [place] VIRPlatelets (Bld) [#/Vol]192 10*3/mODtoljk298-426SfgMrroxb [facility] HospitalComment on above:Performed By: #### CBCA ####[facility] ([facility])[address] [place], [place] [address]E.[place], [place] VIRRBC COUNT3.02 X10E12/LLow3.8-5.2PKeenan Private HospitalComment on above:Performed By: #### CBCA ####[facility] ([facility])[address] [place], [place] [address], [place] VIRWBC (Bld) [#/Vol]10.9 10*3/uLNormal4-11ProHca [facility] Healthcare North CypressComment on above:Performed By: #### CBCA ####[facility] ([address] [place] [address] VIRCOMPREHENSIVE METABOLIC PANELon 11-12-0732Fiwbnsc [Mass/Vol]3.0 g/dLLow 3.2-5.3PKeenan Private HospitalComment on above:Performed By: #### CMP ####[facility] ([address], [place] [address] VIRALP [Catalytic activity/Vol]73 U/BCxxwax95-245EzkBlhfswSt. Mary's Medical Center Comment on above:Performed By: #### CMP ####[facility] ([address] [place] [address] VIRALT [Catalytic activity/Vol]13 U/L Normal<=31PKeenan Private HospitalComment on above:Performed By: #### CMP ####[facility] ([address], [place] [address] VIRAnion gap [Moles/Vol]9 mmol/LNormal5-15ProHca [facility] Healthcare North CypressComment on above:Performed By: #### CMP ####[facility] ([address] [place] [address] VIRAST [Catalytic activity/Vol]13 U/L Normal<=41ProHca [facility] Healthcare North CypressComment on above:Performed By: #### CMP ####[facility] ([facility])[address] [place] [address] VIRBilirubin [Mass/Vol]0.7 mg/dLNormal0.3-1.2PKeenan Private Hospital Comment on above:Performed By: #### CMP ####[facility] ([address] [address] VIRCalcium [Mass/Vol]8.4 mg/dLLow 8.5-10.5PKeenan Private HospitalComment on above:Performed By: #### CMP ####[facility] ([address] [address] VIRChloride [Moles/Vol]106 mmol/YRqroaf98-991AngPhznwgSt. Mary's Medical Center Comment on above:Performed By: #### CMP ####[facility] ([address] [address] VIRCO2 [Moles/Vol]23 mmol/CEwccmu89-28 [facility] Medical CenterComment on above:Performed By: #### CMP ####[facility] ([address] [address] VIR Creatinine [Mass/Vol]0.85 mg/dLNormal0.40-1.00ProHca Houston Healthcare North CypressComment on above:Result Comment: METHOD TRACEABLE TO IDNY STANDARDPerformed By: #### CMP ####[facility] ([address] [address] VIRGFR/1.73 sq M.predicted among non-blacks MDRD (S/P/Bld) [Vol rate/Area] 76 mL/min/{1.73_m2}Normal>=60ProHca Houston Healthcare North CypressComment on above:Result Comment: eGFR not reported due to non-numeric value for Creatinine.Reported eGFR is based ontheCKD-EPI 2020 equation that doesnot use a race coefficient. Performed By: #### CMP ####[facility] ([address] [place] [address] VIRGlucose [Mass/Vol]131 mg/uZEidh22-97OfaAqsebmHca Houston Healthcare North CypressComment on above:Performed By: #### CMP ####[facility] ([address] [place] [address] VIRPotassium [Moles/Vol]4.0 mmol/LNormal3.5-5.0ProHca [facility] Healthcare North CypressComment on above: Performed By: #### CMP ####[facility] ([address] [place] [address] VIRProtein [Mass/Vol]6.3 g/dLNormal6.0-8.0ProHca [facility] Healthcare North CypressComment on above:Performed By: #### CMP ####[facility] ([address] [place] [address] VIRSodium [Moles/Vol]138 mmol/FChpwpx228-204MukVxreuq [facility] HospitalComment on above: Performed By: #### CMP ####[facility] ([address] [place] [address] VIRUrea nitrogen [Mass/Vol]19 mg/dLNormal5-27 ProMUniversity of California, Irvine Medical CenterComment on above:Performed By: #### CMP ####[facility] ([address] [place] [address] VIRMAGNESIUM on 46-70-6110Aluodosbk [Mass/Vol]2.2 mg/dLNormal1.8-2.6ProHca [facility] Healthcare North CypressComment on above:Performed By: #### MG ####[facility] ([address] [place] [address] VIRVANCOMYCIN, PEAKon 42-52-8733AFNMJVYGIW PEAK40.3 ug/cSAxus35.0-40.0[facility] Comment on above:Order Comment: To be drawn 1 to 2 hours after the end of the 1700 dosePerformed By: #### VANCPK ####[facility] ([address] [place] [address] VIRVANCOMYCIN, TROUGHon 12-08-2024 VANCOMYCIN REQQGV20.4 ug/mLNormal5.0-20.0ProHca [facility] Healthcare North CypressComment on above:Order Comment: To be drawn prior to the 1700 dosePerformed By: #### VANCTR ####[facility] ([address] [address] VIRBEDSIDE GLUCOSEon 85-18-8133Csaleww [Mass/Vol]117 mg/tGRfww24-26 [facility] CenterComment on above:Performed By: #### BEDG ####[facility] ([address] [facility] [id number] VIRGlucose [Mass/Vol]180 mg/cPXkwf13-33ZhcTqevzkHca Houston Healthcare North CypressComment on above:Performed By: #### BEDG ####[facility] ([address] [id number] VIRGlucose [Mass/Vol]139 mg/bDEsqj21-72VvlDtqiepHca Houston Healthcare North CypressComment on above:Performed By: #### BEDG ####[facility] ([address] VIRC-REACTIVE PROTEINon 12-07-2024 REACTIVE JCISQSP04.7 mg/dLHigh<=0.7St. Mary's Medical CenterComment on above:Performed By: #### CRP ####[address] [address] VIRCBC WITH AUTO DIFFERENTIALon 43-32-9855UDBWWEZQY ABSOLUTE COUNT (10*3/UL) BY AUTOMATED COUNT0.0 10*3/uLNormal 0.0-0.2ProMedica Miller Children'S HospitalComment on above:Performed By: #### CBCA ####[facility] ([address], [id number] VIRBASOPHILS RELATIVE PERCENT BY AUTOMATED COUNT0.5 %NormalSt. Mary's Medical CenterComment on above:Performed By: #### CBCA ####[facility] ([address], [id number] VIRCELLAVISION DIFFERENTIAL TYPEAUTOMATED DIFFERENTIALNormalSt. Mary's Medical CenterComment on above: Performed By: #### CBCA ####[facility] ([address], [id number] VIREosinophils (Bld) [#/Vol]0.0 10*3/uLNormal0.0-0.4 [facility] Medical CenterComment on above:Performed By: #### CBCA ####[facility] ([address], [id number] VIR EOSINOPHILS RELATIVE PERCENT BY AUTOMATED COUNT0.1 %NormalSt. Mary's Medical CenterComment on above:Performed By: #### CBCA ####[facility] ([address] [facility], [id number] VIRErythrocyte distribution width (RBC) [Ratio]20.1 %High11.5-15St. Mary's Medical CenterComment on above: Performed By: #### CBCA ####[facility] ([address] [facility], [id number] VIRHematocrit (Bld) [Volume fraction]21.7 %Xqn62-31 [facility] Medical CenterComment on above:Performed By: #### CBCA ####[facility] ([address], [place] VIRHemoglobin (Bld) [Mass/Vol]7.1 g/dLLow11.7-15.5PKeenan Private HospitalComment on above: Performed By: #### CBCA ####[facility] ([address], [place] VIRLYMPHOCYTES ABSOLUTE COUNT (10*3/UL) BY AUTOMATED COUNT0.8 10*3/uLLow1.0-3.5PKeenan Private HospitalComment on above:Performed By: #### CBCA ####[facility] ([address], [place] VIRLYMPHOCYTES RELATIVE PERCENT BY AUTOMATED COUNT8.1 % NormalProHca Houston Healthcare North CypressComment on above:Performed By: #### CBCA ####[facility] ([address], [id number] VIRMCH (RBC) [Entitic mass]25.5 swTjp24-21TobAtxrifSt. Mary's Medical CenterComment on above:Performed By: #### CBCA ####[facility] ([address], [id number] VIRMCHC (RBC) [Mass/Vol]33.0 g/bWPvbtmd94-83 [facility] CenterComment on above:Performed By: #### CBCA ####[facility] ([address], [place] VIRMCV (RBC) [Entitic vol]77 yBVpu72-180MhdRfziulHca Houston Healthcare North CypressComment on above:Performed By: #### CBCA ####[facility] ([address], [place] VIRMONOCYTES ABSOLUTE COUNT (10*3/UL) BY AUTOMATED COUNT0.9 10*3/uLNormal0.0-0.9St. [facility] Medical CenterComment on above:Performed By: #### CBCA ####[facility] ([facility])[address] [place], [place] [address] [address]VE.[place], [id number] VIRMONOCYTES RELATIVE PERCENT BY AUTOMATED COUNT9.1 %Normal St. [facility]'s Medical CenterComment on above:Performed By: #### CBCA ####[facility] ([facility])[address] [place], [place] [address].[place], [id number] VIR NEUTROPHILS ABSOLUTE COUNT BY AUTOMATED COUNT7.7 10*3/uLHigh1.5-6.6ProHca [facility] Healthcare North CypressComment on above:Performed By: #### CBCA ####[facility] ([address], [id number] VIRNEUTROPHILS RELATIVE PERCENT BY AUTOMATED COUNT82.2 %NormalSt. Mary's Medical CenterComment on above:Performed By: #### CBCA ####[facility] ([address], [id number] VIRPlatelet mean volume (Bld) [Entitic vol]6.6 fLLow7-12PKeenan Private HospitalComment on above:Performed By: #### CBCA ####[facility] ([address] [place] [address] VIRPlatelets (Bld) [#/Vol]166 10*3/hZUktlha885-295AikBjdlex [facility] HospitalComment on above:Performed By: #### CBCA ####[facility] ([address], [id number] VIRRBC COUNT2.80 X10E12/LLow 3.8-5.2PKeenan Private HospitalComment on above:Performed By: #### CBCA ####[facility] ([address], [id number] VIRWBC (Bld) [#/Vol]9.4 10*3/uLNormal4-11ProHca [facility] Healthcare North CypressComment on above:Performed By: #### CBCA ####[facility] ([place] [address], [id number] VIRCOMPREHENSIVE METABOLIC PANELon 12-07-2024 Albumin [Mass/Vol]3.0 g/dLLow3.2-5.3PKeenan Private HospitalComment on above: Performed By: #### CMP ####[facility] ([place] [address] [place] [address] VIRALP [Catalytic activity/Vol]73 U/RUzyahh82-771 [facility] CenterComment on above:Performed By: #### CMP ####[facility] ([address] [place] [address] VIRALT [Catalytic activity/Vol]14 U/LNormal<=31PKeenan Private HospitalComment on above:Performed By: #### CMP ####[place] [address] [address] VIRAnion gap [Moles/Vol]13 mmol/LNormal5-15 [facility] CenterComment on above:Performed By: #### CMP ####[facility] ([address] [place] [address] VIRAST [Catalytic activity/Vol]14 U/LNormal<=41ProMedica Miller Children'S HospitalComment on above:Performed By: #### CMP ####[facility] ([place] [address] [address] VIRBilirubin [Mass/Vol]0.9 mg/dLNormal0.3-1.2 [facility] CenterComment on above:Performed By: #### CMP ####[facility] ([address] [place] [address] VIRCalcium [Mass/Vol]8.2 mg/dLLow8.5-10.5PSt. Anthony Summit Medical Center HospitalComment on above: Performed By: #### CMP ####[facility] ([address] [place] [address] VIRChloride [Moles/Vol]103 mmol/VFvhroa71-205 [facility] CenterComment on above:Performed By: #### CMP ####[facility] ([address] [place] [address] VIRCO2 [Moles/Vol]23 mmol/GAcffeq13-82QhtHobkgg Miller Children'S HospitalComment on above: Performed By: #### CMP ####[facility] ([address] [place] [address] VIRCreatinine [Mass/Vol]0.71 mg/dLNormal0.40-1.00 [facility] CenterComment on above:Result Comment: METHOD TRACEABLE TO IDMS STANDARDPerformed By: #### CMP ####[facility] ([address] [place] [address] VIREGFR (CKD-EPI) NON-RACE DEPENDENT >^90Normal>=60ProHca Houston Healthcare North CypressComment on above:Result Comment: Reported eGFR is based on theCKD-EPI 2020 equation that doesnot use a race coefficient.Performed By: #### CMP ####[facility] ([address] [place] [address] VIRGlucose [Mass/Vol]123 mg/dLHigh 65-99ProHca [facility] Healthcare North CypressComment on above:Performed By: #### CMP ####[facility] ([address], [place] [address] VIRPotassium [Moles/Vol]2.6 mmol/LCritically low3.5-5.0St. [facility] Medical CenterComment on above:Performed By: #### CMP ####[facility] ([address] [place] [address] VIRProtein [Mass/Vol]6.1 g/dL Normal6.0-8.0St. [facility]'s Medical CenterComment on above:Performed By: #### CMP ####[facility] ([address], [place] [address] VIRSodium [Moles/Vol]139 mmol/FOfvavx264-595KkyFpyntmMemorial Hermann [facility] on above:Performed By: #### CMP ####[facility] ([address] [place] [address] VIRUrea nitrogen [Mass/Vol]14 mg/dL Normal5-27ProHca [facility] Healthcare North CypressComment on above:Performed By: #### CMP ####[facility] ([address] [address] VIRMAGNESIUMon 48-81-8926Gkkxeoxra [Mass/Vol]2.1 mg/dLNormal1.8-2.6 ProMUniversity of California, Irvine Medical CenterComment on above:Performed By: #### MG ####[facility] ([address] [address] VIRMR FOOT LT W WO CONTon 62-60-6806HT FOOT LT W WO CONTNormalProHca [facility] POTASSIUMon 31-09-3715Rrdemvdpq [Moles/Vol]3.6 mmol/LNormal3.5-5.0ProHca [facility] Healthcare North CypressComment on above:Performed By: #### K ####[facility] ([address] [place] [address] VIRPotassium [Moles/Vol]3.6 mmol/LNormal3.5-5.0ProHca [facility] Healthcare North CypressComment on above: Performed By: #### K ####[facility] ([address] [address] VIRBEDSIDE GLUCOSEon [id number] [Mass/Vol]169 mg/pATaad23-66XxmPyqjjqHca Houston Healthcare North CypressComment on above:Performed By: #### BEDG ####[facility] ([facility])[address] [place] [address] A[place] [address] VIRGlucose [Mass/Vol]170 mg/bNMvry59-43JjpKeeatiHca Houston Healthcare North CypressComment on above:Performed By: #### BEDG ####[facility] ([facility])[address] [place] [address] [facility] [id number] VIRGlucose [Mass/Vol]145 mg/rAYpbt00-86 ProMUniversity of California, Irvine Medical CenterComment on above:Performed By: #### BEDG ####[facility] ([facility])[address] [place] [address] AVE.[place], [id number] VIRCBC WITH AUTO DIFFERENTIALon [id number] ABSOLUTE COUNT (10*3/UL) BY AUTOMATED COUNT0.1 10*3/uLNormal0.0-0.2ProMedSt. Joseph's Medical CenterComment on above: Performed By: #### CBCA ####[facility] ([address], [id number] VIRBASOPHILS RELATIVE PERCENT BY AUTOMATED COUNT0.7 % NormalSt. Mary's Medical CenterComment on above:Performed By: #### CBCA ####[facility] ([facility])[address] [place] [address] AVE.[place], [id number] VIRCELLAVISION DIFFERENTIAL TYPEAUTOMATED DIFFERENTIALNormalProHca Houston Healthcare North CypressComment on above:Performed By: #### CBCA ####[facility] ([address], [id number] VIREosinophils (Bld) [#/Vol] 0.0 10*3/uLNormal0.0-0.4St. Mary's Medical CenterComment on above:Performed By: #### CBCA ####[facility] ([facility])[address] [place] [address] [address], [id number] VIREOSINOPHILS RELATIVE PERCENT BY AUTOMATED COUNT0.0 % NormalSt. Mary's Medical CenterComment on above:Performed By: #### CBCA ####[facility] ([address], [id number] VIRErythrocyte distribution width (RBC) [Ratio]20.3 %High11.5-15St. Mary's Medical CenterComment on above:Performed By: #### CBCA ####[facility] ([address], [id number] VIRHematocrit (Bld) [Volume fraction]22.9 %Qgm24-29ChdUcusszHca Houston Healthcare North CypressComment on above: Performed By: #### CBCA ####[facility] ([address], [id number] VIRHemoglobin (Bld) [Mass/Vol]7.2 g/dLLow11.7-15.5 St[facility] Mary's Medical CenterComment on above:Performed By: #### CBCA ####[facility] ([address], [id number] VIR LYMPHOCYTES ABSOLUTE COUNT (10*3/UL) BY AUTOMATED COUNT0.7 10*3/uLLow1.0-3.5 [facility]'s Medical CenterComchelsea hospital on above:Performed By: #### CBCA ####[facility] ([address], [id number] VIR LYMPHOCYTES RELATIVE PERCENT BY AUTOMATED COUNT5.9 %NormalProHca Houston Healthcare North CypressComment on above:Performed By: #### CBCA ####[facility] ([address], [id number] VIRMCH (RBC) [Entitic mass] 24.8 mjRds98-07WlrEfiztqSt. Mary's Medical CenterComment on above:Performed By: #### CBCA ####[facility] ([address] [place] [address] VIRMCHC (RBC) [Mass/Vol]31.3 g/eLUfj44-78VklXztkpfHca Houston Healthcare North CypressComment on above:Performed By: #### CBCA ####[facility] ([address], [id number] VIRMCV (RBC) [Entitic vol]79 fLLow 80-100ProHca Houston Healthcare North CypressComment on above:Performed By: #### CBCA ####[facility] ([address], [id number] VIRMONOCYTES ABSOLUTE COUNT (10*3/UL) BY AUTOMATED COUNT0.9 10*3/uLNormal0.0-0.9 [facility]'s Medical CenterComment on above:Performed By: #### CBCA ####[facility] ([address], [place] VIRMONOCYTES RELATIVE PERCENT BY AUTOMATED COUNT7.4 %NormalSt. Mary's Medical CenterComment on above:Performed By: #### CBCA ####[facility] ([address], [id number] VIRNEUTROPHILS ABSOLUTE COUNT BY AUTOMATED COUNT9.9 10*3/uLHigh1.5-6.6ProHca Houston Healthcare North CypressComment on above: Performed By: #### CBCA ####[facility] ([address], [id number] VIRNEUTROPHILS RELATIVE PERCENT BY AUTOMATED COUNT86.0 %NormalSt. Mary's Medical CenterComment on above:Performed By: #### CBCA ####[facility] ([address], [id number] VIRPlatelet mean volume (Bld) [Entitic vol]6.5 fLLow7-12ProMedica Miller Children'S HospitalComment on above:Performed By: #### CBCA ####[facility] ([address], [id number] VIRPlatelets (Bld) [#/Vol]197 10*3/wOIgryha109-229YuzIedzwb [facility]ont HospitalComment on above:Performed By: #### CBCA ####[facility] ([facility])[address] [place], [place] [address]VE[address], [place] VIRRBC COUNT2.89 X10E12/LLow3.8-5.2PKeenan Private HospitalComment on above:Performed By: #### CBCA ####[facility] ([facility])[address] [place], [place] [address]T AVE.[facility] [id number] VIRWBC (Bld) [#/Vol]11.5 10*3/uLHigh4-11St. Mary's Medical CenterComment on above:Performed By: #### CBCA ####[facility] ([address] [address] VIRCOMPREHENSIVE METABOLIC PANELon 73-55-9607Nnwksqd [Mass/Vol]2.9 g/dLLow 3.2-5.3PKeenan Private HospitalComment on above:Performed By: #### CMP ####[facility] ([address], [place] [address] VIRALP [Catalytic activity/Vol]77 U/VDhhvjk51-099XcgCstxgqSt. Mary's Medical Center Comment on above:Performed By: #### CMP ####[facility] ([address] [address] VIRALT [Catalytic activity/Vol]12 U/L Normal<=31PKeenan Private HospitalComment on above:Performed By: #### CMP ####[facility] ([address], [place] [address] VIRAnion gap [Moles/Vol]12 mmol/LNormal5-15[facility] Comment on above:Performed By: #### CMP ####[facility] ([address] [place] [address] VIRAST [Catalytic activity/Vol]13 U/L Normal<=41ProHca Houston Healthcare North CypressComment on above:Performed By: #### CMP ####[facility] ([address], [place] [address] VIRBilirubin [Mass/Vol]0.5 mg/dLNormal0.3-1.2PKeenan Private Hospital Comment on above:Performed By: #### CMP ####[facility] ([address] [place] [address] VIRCalcium [Mass/Vol]8.4 mg/dLLow 8.5-10.5PKeenan Private HospitalComment on above:Performed By: #### CMP ####[facility] ([address], [place] [address] VIRChloride [Moles/Vol]112 mmol/NNcvs95-602AkdKfhwliSt. Mary's Medical Center Comment on above:Performed By: #### CMP ####[facility] ([address] [place] [address] VIRCO2 [Moles/Vol]16 mmol/QAys25-09 St[facility]'s Medical CenterComment on above:Performed By: #### CMP ####[facility] ([address] [place] [address] VIR Creatinine [Mass/Vol]0.88 mg/dLNormal0.40-1.00St. Mary's Medical CenterComment on above:Result Comment: METHOD TRACEABLE TO IDMS STANDARDPerformed By: #### CMP ####[facility] ([address] [address] VIRGFR/1.73 sq M.predicted among non-blacks MDRD (S/P/Bld) [Vol rate/Area] 73 mL/min/{1.73_m2}Normal>=60ProHca Houston Healthcare North CypressComment on above:Result Comment: eGFR not reported due to non-numeric value for Creatinine.Reported eGFR is based ontheCKD-EPI 1 equation that doesnot use a race coefficient. Performed By: #### CMP ####[facility] ([address] [place] [address] VIRGlucose [Mass/Vol]146 mg/hKXpme48-81YddFbrtsrHca Houston Healthcare North CypressComment on above:Performed By: #### CMP ####[facility] ([address] [place] [address] VIRPotassium [Moles/Vol]3.5 mmol/LNormal3.5-5.0ProHca Houston Healthcare North CypressComment on above: Performed By: #### CMP ####[facility] ([address] [place] [address] VIRProtein [Mass/Vol]6.0 g/dLNormal6.0-8.0ProHca Houston Healthcare North CypressComment on above:Performed By: #### CMP ####[facility] ([address] [place] [address] VIRSodium [Moles/Vol]140 mmol/LHuncfe001-733NfsGdidce Fremont HospitalComment on above: Performed By: #### CMP ####[facility] ([address] [place] [address] VIRUrea nitrogen [Mass/Vol]24 mg/dLNormal5-27 ProMUniversity of California, Irvine Medical CenterComment on above:Performed By: #### CMP ####[facility] ([address] [place] [address] VIRMAGNESIUM on 47-40-4384Msmfvmqiv [Mass/Vol]2.2 mg/dLNormal1.8-2.6ProHca Houston Healthcare North CypressComment on above:Performed By: #### MG ####[facility] ([address] [place] [address] VIRPOTASSIUMon 12-06-2024 Potassium [Moles/Vol]3.3 mmol/LLow3.5-5.0ProHca Houston Healthcare North CypressComment on above:Performed By: #### K ####[facility] ([facility])[address] [place] [address] [place] [address] VIRSUPERFICIAL WOUND CULTUREon 12-06-2024 SUPERFICIAL WOUND CULTURESusceptibleProHca Houston Healthcare North CypressComment on above: Performed By: #### WCSUP ####[facility] ([facility])[address], [place] [address] VIRBEDSIDE GLUCOSEon 05-92-8855Umhyeky [Mass/Vol]193 mg/bDLrbn73-98PspVtpoyyHca Houston Healthcare North CypressComment on above:Performed By: #### BEDG ####[facility]ITALAri[facility] ([facility])[address] [place] [address] AV.[place], [place] VIRGlucose [Mass/Vol]144 mg/yGAcej55-40JejFmvjnqHca Houston Healthcare North CypressComment on above:Performed By: #### BEDG ####[facility] ([address], [place] VIRBLOOD CULTUREon 12-05-2024 Bacteria identified Cx Nom (Bld)CULTURE RESULTS NO GROWTH 5 DAYSNormFisher-Titus Medical CenterComment on above:Order Comment: *SIRS Criteria: (must display 2 without other explanation)-Temperature < 36 or >38-Pulse >90-Resp rate >20-WBC less than 4K or greater than 12KRepeat blood cultures not needed:-To document that a blood culture is a contaminant when 1 of 2 bottles is positive for a common contaminant (already listed in Epic with the culture result)-To document clearance of gram negative bacteremia in patients with suspected urinary source who are improvingSuboptimal volume of blood collected, Results may be affected.Performed By: #### BC ####[facility] ([facility])[address], [place] [address] VIR Bacteria identified Cx Nom (Bld)CULTURE RESULTS NO GROWTH 5 DAYSNormalProHca Houston Healthcare North CypressComment on above:Order Comment: *SIRS Criteria: (must display 2 without other explanation)-Temperature < 36 or >38-Pulse >90-Resp rate >20-WBC less than 4K or greater than 12KRepeat blood cultures not needed:-To document that a blood culture is a contaminant when 1 of 2 bottles is positive for a common contaminant (already listed in Epic with the culture result)-To document clearance of gram negative bacteremia in patients with suspected urinary source who are improvingSuboptimal volume of blood collected, Results may be affected.Performed By: #### BC ####[facility] ([facility])[address] [facility] [address], [place] [address] VIRC- REACTIVE PROTEINon 12-05-2024 REACTIVE DVCOWFS24.3 mg/dLHigh<=0.7St. Mary's Medical CenterComment on above:Performed By: #### CRP ####[facility] ([facility])[address] [place], [place] [address]E.[place] [address] VIRCBC WITH AUTO DIFFERENTIALon [id number] ROSIE CELLS IN BLOOD BY LIGHT MICROSCOPY1+ NormalSt. Mary's Medical CenterComment on above:Result Comment: This is an appended report. These results have been appended to a previously preliminary verified report.Performed By: #### CBCA ####[facility] ([facility])[address] [place] [id number] VIRCELLAVISION DIFFERENTIAL TYPEMANUAL DIFFERENTIALNormalSt. Mary's Medical CenterComment on above:Result Comment: This is an appended report. These results have been appended to a previously preliminary verified report.Performed By: #### CBCA ####[facility] ([address] [id number] VIRCELLAVISION HYPOCHROMIA IN BLOOD BY LIGHT MICROSCOPY1+[facility] Comment on above:Result Comment: This is an appended report. These results have been appended to a previously preliminary verified report.Performed By: #### CBCA ####[facility] ([facility])[address] [place] [address] VIRCELLAVISION LYMPHOCYTES ABSOLUTE COUNT (10*3/UL) BY MANUAL COUNT0.8 10*3/uLLow1.0-3.5PKeenan Private HospitalComment on above:Result Comment: This is an appended report. These results have been appended to a previously prelimi nary verified report.Performed By: #### CBCA ####[facility] ([facility])[address] [place] [address] [id number] VIRCELLAVISION LYMPHOCYTES RELATIVE PERCENT BY MANUAL COUNT6 %NormalProHca Houston Healthcare North CypressComment on above:Result Comment: This is an appended report. These results have been appended to a previously preliminary verified report.Performed By: #### CBCA ####[facility] ([address] VIRCELLAVISION MONOCYTES ABSOLUTE COUNT (10*3/UL) IN BLOOD BY MANUAL COUNT0.8 10*3/uLNormal0.0-0.9St. Mary's Medical CenterComment on above:Result Comment: This is an appended report. These results have been appended to a previously preliminary verified report.Performed By: #### CBCA ####[facility]ITALAriana [facility] ([facility])[address] [place] [id number] VIRCELLAVISION MONOCYTES RELATIVE PERCENT BY MANUAL COUNT6 %NormalProHca [facility] Healthcare North Cypress Comment on above:Result Comment: This is an appended report. These results have been appended to a previously preliminary verified report.Performed By: #### CBCA ####[facility] ([facility])[address] [place] [address] VIRCELLAVISION NEUTROPHILS ABSOLUTE COUNT BY MANUAL COUNT12.2 10*3/uLHigh 1.5-6.6St. [facility] Medical CenterComchelsea hospital on above:Result Comment: This is an appended report. These results have been appended to a previously preliminary verified report.Performed By: #### CBCA ####[facility] ([facility])[id number] VIRCELLAVISION NEUTROPHILS RELATIVE PERCENT BY MANUAL COUNT88 %NormalSt. Mary's Medical CenterComchelsea hospital on above: Result Comment: This is an appended report. These results have been appended to a previously preliminary verified report.Performed By: #### CBCA ####[facility] ([facility])[address], [id number] VIR CELLAVISION RBC FRAGMENTS1+NormalProHca Houston Healthcare North CypressComment on above: Result Comment: This is an appended report. These results have been appended to a previously preliminary verified report.Performed By: #### CBCA ####[facility] ([address], [id number] VIR Erythrocyte distribution width (RBC) [Ratio]20.6 %High11.5-15St. Mary's Medical CenterComment on above:Performed By: #### CBCA ####[facility] ([address] [place], [id number] VIRHematocrit (Bld) [Volume fraction]24.8 %Ocn05-16IdsMogfvbSt. Mary's Medical CenterComment on above:Performed By: #### CBCA ####[facility] ([address], [id number] VIRHemoglobin (Bld) [Mass/Vol]7.8 g/dLLow11.7-15.5ProMedica Miller Children'S HospitalComment on above:Performed By: #### CBCA ####[facility] ([address], [id number] VIRMCH (RBC) [Entitic mass]25.0 otZqc92-96NdrMikuvlHca Houston Healthcare North CypressComment on above:Performed By: #### CBCA ####[facility] ([address], [id number] VIRMCHC (RBC) [Mass/Vol]31.5 g/fXOpd50-65CluSnhywxHca Houston Healthcare North CypressComment on above:Performed By: #### CBCA ####[facility] ([address], [id number] VIRMCV (RBC) [Entitic vol]79 oBZdh47-711XsyBingziHca Houston Healthcare North CypressComment on above:Performed By: #### CBCA ####[facility] ([address], [id number] VIRPlatelet mean volume (Bld) [Entitic vol]6.5 fLLow7-12PKeenan Private HospitalComment on above:Performed By: #### CBCA ####[facility] ([address], [id number] VIRPlatelets (Bld) [#/Vol]235 10*3/eJLasztx645-658QxvZnnrur [facility]ont HospitalComment on above:Performed By: #### CBCA ####[facility] ([address], [id number] VIRRBC COUNT3.13 X10E12/LLow3.8-5.2PKeenan Private HospitalComment on above:Performed By: #### CBCA ####[facility] ([address], [id number] VIRWBC (Bld) [#/Vol]13.8 10*3/uLHigh4-11ProHca Houston Healthcare North CypressComment on above:Performed By: #### CBCA ####[facility] ([address] [place] [address] VIRCOMPREHENSIVE METABOLIC PANELon 26-79-5877Rasjdsy [Mass/Vol]3.4 g/dL Normal3.2-5.3PKeenan Private HospitalComment on above:Performed By: #### CMP ####[facility] ([facility])[address], [place] [address] VIRALP [Catalytic activity/Vol]86 U/TPgncbn08-746DpiCgpkflSt. Mary's Medical Center Comment on above:Performed By: #### CMP ####[facility] ([facility])[address] [place] [address] VIRALT [Catalytic activity/Vol]14 U/L Normal<=31PKeenan Private HospitalComment on above:Performed By: #### CMP ####[facility] ([facility])[address], [place] [address] VIRAnion gap [Moles/Vol]13 mmol/LNormal5-15[facility] Comment on above:Performed By: #### CMP ####[facility] ([place] [address] [place] [address] VIRAST [Catalytic activity/Vol]15 U/L Normal<=41ProHca Houston Healthcare North CypressComment on above:Performed By: #### CMP ####[facility] ([place] [address], [place] [address] VIRBilirubin [Mass/Vol]0.5 mg/dLNormal0.3-1.2PKeenan Private Hospital Comment on above:Performed By: #### CMP ####[facility] ([place] [address] [place] [address] VIRCalcium [Mass/Vol]8.9 mg/dLNormal 8.5-10.5PKeenan Private HospitalComment on above:Performed By: #### CMP ####[facility] ([place] [address], [place] [address] VIRChloride [Moles/Vol]108 mmol/SAwcjjf88-712GcvSdopnkSt. Mary's Medical Center Comment on above:Performed By: #### CMP ####[facility] ([place] [address] [place] [address] VIRCO2 [Moles/Vol]18 mmol/SFtl14-42 ProMUniversity of California, Irvine Medical CenterComment on above:Performed By: #### CMP ####[facility] ([address] [place] [address] VIR Creatinine [Mass/Vol]1.20 mg/dLHigh0.40-1.00ProHca Houston Healthcare North CypressComment on above:Result Comment: METHOD TRACEABLE TO IDMS STANDARDPerformed By: #### CMP ####[facility] ([address] [address] VIRGFR/1.73 sq M.predicted among non-blacks MDRD (S/P/Bld) [Vol rate/Area] 50 mL/min/{1.73_m2}Low>=60ProHca Houston Healthcare North CypressComment on above:Result Comment: eGFR not reported due to non-numeric value for Creatinine.Reported eGFR is based ontheCKD-EPI 2020 equation that doesnot use a race coefficient. Performed By: #### CMP ####[facility] ([address] [address] VIRGlucose [Mass/Vol]123 mg/rGHlcc95-66TfxXhwjroHca Houston Healthcare North CypressComment on above:Performed By: #### CMP ####[facility] ([address] [address] VIRPotassium [Moles/Vol]3.1 mmol/LLow3.5-5.0ProHca Houston Healthcare North CypressComment on above: Performed By: #### CMP ####[address] [address] VIRProtein [Mass/Vol]6.7 g/dLNormal6.0-8.0ProHca Houston Healthcare North CypressComment on above:Performed By: #### CMP ####[facility] ([address] [place] [address] VIRSodium [Moles/Vol]139 mmol/EOwtsie705-746LxtXirdrn [facility]ont HospitalComment on above: Performed By: #### CMP ####[facility] ([address] [place] [address] VIRUrea nitrogen [Mass/Vol]30 mg/dLHigh5-27St. Mary's Medical CenterComment on above:Performed By: #### CMP ####[facility] ([address] [place] [address] VIRLACTATE W/ REFLEX on 48-77-4575EBFVIZI W/REFLEX1.1 mmol/LNormal0.4-2.0[facility] Comment on above:Order Comment: Result did not trigger repeat Lactate,re-order if needed.Performed By: #### LACTS ####[facility] ([address] [address] VIRMRSA PCR NASAL SWABon 12-05-2024 MRSA PCR NASAL SWABNegativeNormalNegativeProHca Houston Healthcare North CypressComment on above:Performed By: #### MRSPCR ####[facility] ([facility])[address] [address], [place] [address] VIRPOTASSIUMon 15-80-7452Mqdgxujyt [Moles/Vol]3.4 mmol/LLow3.5-5.0St. Mary's Medical CenterComment on above: Performed By: #### K ####[facility] ([address] [address] VIRXR FOOT LT MIN 3 VWSon 52-25-8154XA FOOT LT MIN 3 VWS NormalSt. Mary's Medical CenterXR HIPS BILAT W OR WO PELVIS 5+ VWSon 12-05-2024 XR HIPS BILAT W OR WO PELVIS 5+ VWSNormalSt. Mary's Medical CenterCB with Auto Differentialon 35-49-8026Wmaorxvgj (Bld) [#/Vol]0.07 10*3/uLBon SecDiley Ridge Medical CenterBasophils/100 WBC (Bld)1 %0 - 2 %[facility] HealthEosinophils (Bld) [#/Vol]0.18 10*3/uLBon Secours Mercy HealthEosinophils/100 WBC (Bld)2 %1 - 4 % [facility] HealthErythrocyte distribution width (RBC) [Ratio]17.3 %High 11.8 - 14.4 %[facility] HealthHematocrit (Bld) [Volume fraction]27.9 %Low 36.3 - 47.1 %[facility] HealthHemoglobin (Bld) [Mass/Vol]8.7 g/dLLow11.9 - 15.1 g/dLBon Secours Mercy HealthImmature granulocytes (Bld) [#/Vol]0.03 10*3/uLBon Secours Mercy HealthImmature granulocytes/100 WBC (Bld)0 %0[facility] HealthInterpretation and review of laboratory resultsAbnormalBon Secours Mercy HealthLymphocytes/100 WBC (Bld)18 %Low24 - 43 %[facility] HealthLymphocytes/100 WBC (Bld)1.91 %[facility] HealthMCH (RBC) [Entitic mass]25.5 pg25.2 - 33.5 pgBon Secours [facility] Hospitaly HealthMCHC (RBC) [Mass/Vol]31.2 g/dL 28.4 - 34.8 g/dLBon Secours Mercy HealthMCV (RBC) [Entitic vol]81.8 fLLow82.6 - 102.9 fLBon Secours Mercy HealthMonocytes/100 WBC (Bld)6 %3 - 12 %[facility] HealthMonocytes/100 WBC (Bld)0.60 %[facility] HealthNeutrophils/100 WBC (Bld)73 %High36 - 65 %[facility] HealthNucleated RBC/100 WBC (Bld) [Ratio]0.0 %0.0 per 100 WBCBon Secours Mercy HealthPlatelet mean volume (Bld) [Entitic vol]9.2 fL8.1 - 13.5 fLBon Secours Mercy HealthPlatelets (Bld) [#/Vol] 313 10*3/uLBon Secours Mercy HealthRBC (Bld) [#/Vol]3.41 10*6/uLLow3.95 - 5.11 m/uLBon [facility] OhioSegmented neutrophils/100 WBC (Bld)8.08 %Bon [facility] OhioWBC other (Bld) [#/Vol]10.9Bon [facility] OhioBon [facility] OhioCMPon 11-08-9046Spesepm [Mass/Vol]3.5 g/dL3.5 - 5.2 g/dLBon [facility] OhioAlbumin/Globulin [Mass ratio]1.6 {ratio}1.0 - 2.5Bon [facility] OhioALP [Catalytic activity/Vol]68 U/L35 - 104 U/LBon [facility] HealthALT [Catalytic activity/Vol]8 U/LLow10 - 35 U/LBon [facility] OhioAnion gap [Moles/Vol]11 mmol/L9 - 16 mmol/LBon [facility] HealthAST [Catalytic activity/Vol]11 U/L10 - 35 U/LBon [facility] OhioBilirubin [Mass/Vol]mg/dL 0.00 - 1.20 mg/dLBon [facility] OhioCalcium [Mass/Vol]8.6 mg/dL8.6 - 10.4 mg/dLBon [facility] OhioChloride [Moles/Vol]110 mmol/LHigh98 - 107 mmol/L [facility] CenterCO2 [Moles/Vol]18 mmol/LLow20 - 31 mmol/LBon [facility] OhioCreatinine [Mass/Vol]0.7 mg/dL0.50 - 0.90 mg/dLBon [facility] OhioEst, Glom Filt Rate89- PINFBon King[facility] OhioComment on above: These results are not intended for use in patients <18 years of age. eGFR results are calculated without a race factor using the 2020 CKD-EPI equation. Careful clinical correlation is recommended, particularly when comparing to results calculated using previous equations. The CKD-EPI equation is less accurate in patients with extremes of muscle mass, extra-renal metabolism of creatine, excessive creatine ingestion, or following therapy that affects renal tubular secretion. Glucose [Mass/Vol]84 mg/dL74 - 99 mg/dLBon [facility] OhioInterpretation and review of laboratory resultsAbnormalBon [facility] HealthPotassium [Moles/Vol]4.0 mmol/L3.7 - 5.3 mmol/LBon [facility] HealthProtein [Mass/Vol] 5.8 g/dLLow6.6 - 8.7 g/dLBon [facility] HealthSodium [Moles/Vol]139 mmol/L136 - 145 mmol/LBon [facility] OhioUrea nitrogen [Mass/Vol]58 mg/dLHigh8 - 23 mg/dLBon [facility] OhioUrea nitrogen/Creatinine [Mass ratio]83 mg/mgHigh9 - 20Bon [facility] OhioBon [facility] HealthCT Pelvis WO contraston 83-20-4819Sqptneat abnormal right hip is similar in appearance from the previous study. If there is strong clinical concern for pathologic fracture, nonemergent MRI should be considered.. [facility] RIS CONSOLIDATEDEXAMINATION: CT OF THE PELVIS WITHOUT CONTRAST 11/19/2024 1:51 pm TECHNIQUE: CT of the pelvis was performed without the administration of intravenous contrast. Multiplanar reformatted images are provided for review. Adjustment of mA and/or kV according to patient size was utilized. Automated exposure control, iterative reconstruction, and/or weight based adjustment of the mA/kV was utilized to reduce the radiation dose to as low as reasonably achievable. COMPARISON: 08/06/2024. HISTORY ORDERING SYSTEM PROVIDED HISTORY: right hip pain, unable to bear weight TECHNOLOGIST PROVIDED HISTORY: right hip pain, unable to bear weight Decision Support Exception - unselect if not a suspected or confirmed emergency medical condition->Emergency Medical Condition (MA) FINDINGS: Bones: Advanced osteoarthritic changes of the right hip. Sclerosis of the femoral head with large subchondral cysts. Remottling of the acetabulum in the large joint effusion. Multiple subchondral cysts also of the acetabulum. Flattening and irregularity of the femoral head. Negative for dislocation. The right hip at a similar appearance to the previous CT scan Mild destruction of the acetabulum with a fracture posteriorly in the anteriorly of undetermined age. The axial aspect of the acetabular roof is displaced. Osteoarthritic change of the left hip which are mild. No visualized pubic fracture. No widening of the SI joints or the pubic symphysis. Mild facet arthropathy lower lumbar spine. No visualized sacral fracture. Soft Tissue: Atherosclerotic changes of the aorta and the iliac arteries. There is likely flow-limiting stenosis. Dense atherosclerotic change of the proximal common iliac arteries. Laxity of the anterior abdominal wall. Phleboliths in the pelvis. No free fluid in the pelvis. Again noted is the large right hip effusion. It is heterogeneous. No hematoma in the subcutaneous tissues. Ramya Malcolm MD - 11/19/2024 EXAMINATION: CT OF THE PELVIS WITHOUT CONTRAST 11/19/2024 1:51 pm TECHNIQUE: CT of the pelvis was performed without the administration of intravenous contrast. Multiplanar reformatted images are provided for review. Adjustment of mA and/or kV according to patient size was utilized. Automated exposure control, iterative reconstruction, and/or weight based adjustment of the mA/kV was utilized to reduce the radiation dose to as low as reasonably achievable. COMPARISON: 08/06/2024. HISTORY ORDERING SYSTEM PROVIDED HISTORY: right hip pain, unable to bear weight TECHNOLOGIST PROVIDED HISTORY: right hip pain, unable to bear weight Decision Support Exception - unselect if not a suspected or confirmed emergency medical condition->Emergency Medical Condition (MA) FINDINGS: Bones: Advanced osteoarthritic changes of the right hip. Sclerosis of the femoral head with large subchondral cysts. Remottling of the acetabulum in the large joint effusion. Multiple subchondral cysts also of the acetabulum. Flattening and irregularity of the femoral head. Negative for dislocation. The right hip at a similar appearance to the previous CT scan Mild destruction of the acetabulum with a fracture posteriorly in the anteriorly of undetermined age. The axial aspect of the acetabular roof is displaced. Osteoarthritic change of the left hip which are mild. No visualized pubic fracture. No widening of the SI joints or the pubic symphysis. Mild facet arthropathy lower lumbar spine. No visualized sacral fracture. Soft Tissue: Atherosclerotic changes of the aorta and the iliac arteries. There is likely flow-limiting stenosis. Dense atherosclerotic change of the proximal common iliac arteries. Laxity of the anterior abdominal wall. Phleboliths in the pelvis. No free fluid in the pelvis. Again noted is the large right hip effusion. It is heterogeneous. No hematoma in the subcutaneous tissues. IMPRESSION: Markedly abnormal right hip is similar in appearance from the previous study. If there is strong clinical concern for pathologic fracture, nonemergent MRI should be considered.. [facility] CenterRadiology Study observation (narrative)[facility] CenterCT Pelvis WO contrastOrdered By: Ramya Maico on [id number] [facility] [employer] Work Phone: Microscopic Urinalysison [id number] cells LM.HPF (Urine sed) [#/Area]0 TO 2Bon SecDiley Ridge Medical CenterRBC LM.HPF (Urine sed) [#/Area]NoneBon [facility] OhioWBC LM.HPF (Urine sed) [#/Area]0 TO 2Bon [facility] OhioBon [facility] HealthProtime-INRon [id number] Coag (PPP) [Relative time]1.4 {INR}[facility] Medical CenterComment on above: Therapeutic Range: Moderate Anticoagulant Intensity: INR = 2.0-3.0 High Anticoagulant Intensity: INR = 2.5-3.5 Interpretation and review of laboratory resultsAbnormalHealthsouth Medical Center PT Coag (PPP) [Time]17.4 sHighBon [facility] OhioBon [facility] Health Urinalysison [id number] Ql (U)NegativeNEGATIVEBon [facility] HospitalVDP [facility] Health Clarity (U)ClearClearBon [facility] HealthColor (U)YellowYellowHealthsouth Medical CenterGlucose Test strip (U) [Mass/Vol]NegativeNEGATIVE mg/dLBon [facility] [employer] TechnologiesHemoglobin Auto test strip Ql (U)NegativeNEGATIVESentara [facility] HealthInterpretation and review of laboratory resultsAbnormalBon [facility] HealthKetones (U) [Mass/Vol]NegativeNEGATIVE mg/dLBon [facility] [place] Leukocyte esterase Test strip Ql (U)NegativeNEGATIVEBon [facility] Health Nitrite Ql (U)NegativeNEGATIVEBon [facility] HealthpH (U)6.0 [pH]5.0 - 9.0[facility] HealthProtein (U) [Mass/Vol]TRACEAbnormalNEGATIVE mg/dLBon SecKadlec Regional Medical CenterSolarOne Solutions HealthSpecific gravity (U) [Rel density]1.0151.010 - 1.020Bon [facility] OhioUrobilinogen Qn (U)Normal0.0 - 1.0 EU/dLBon [facility] OhioBon [facility] OhioXR Foot - left 3 Viewson . Osteopenia. 2. Small calcaneal spur. 3. Soft tissue swelling and ulceration at the plantar heel. [facility] CONSOLIDATEDEXAM: 3 or more VIEW(S) XRAY OF THE LEFT FOOT 11/19/2024 12:43:02 PM COMPARISON: 08/12/2024 CLINICAL HISTORY: r/o osteo. ORDERING SYSTEM PROVIDED HISTORY: r/o osteo; TECHNOLOGIST PROVIDED HISTORY: r/o osteo FINDINGS: BONES AND JOINTS: Osteopenia. Small calcaneal spur. No acute fracture. No joint dislocation. SOFT TISSUES: Soft tissue swelling and ulceration at the plantar heel. [facility] Nia Rouse MD - 11/19/2024 EXAM: 3 or more VIEW(S) XRAY OF THE LEFT FOOT 11/19/2024 12:43:02 PM COMPARISON: 08/12/2024 CLINICAL HISTORY: r/o osteo. ORDERING SYSTEM PROVIDED HISTORY: r/o osteo; TECHNOLOGIST PROVIDED HISTORY: r/o osteo FINDINGS: BONES AND JOINTS: Osteopenia. Small calcaneal spur. No acute fracture. No joint dislocation. SOFT TISSUES: Soft tissue swelling and ulceration at the plantar heel. IMPRESSION: 1. Osteopenia. 2. Small calcaneal spur. 3. Soft tissue swelling and ulceration at the plantar heel. [facility] CenterRadiology Study observation (narrative)[facility] Foot - left 3 ViewsOrdered By: Nia Trejo on [id number] [facility] [place] Work Phone: XR Pelvis and Hip - bilateral Viewson . No acute osseous abnormality. If there is persistent clinical concern or difficulty weight-bearing CT can be obtained. 2. Severe degenerative changes to the right hip joint appears stable. 3. Stable degenerative changes to both SI joints and visualized lumbar spine. [facility] CONSOLIDATEDEXAMINATION: ONE X-RAY VIEW OF THE PELVIS AND TWO X-RAY VIEWS OF EACH OF THE BILATERAL HIPS 11/19/2024 12:42 pm COMPARISON: CT chest, abdomen and pelvis 08/06/2024. HISTORY: ORDERING SYSTEM PROVIDED HISTORY: Pain, unable to walk, fall 2 weeks ago. TECHNOLOGIST PROVIDED HISTORY: Pain, unable to walk, fall 2 weeks ago. FINDINGS: No acute fractures. No dislocations. No suspicious focal bony lesions. Severe degenerative changes to the right hip joint appears stable. No significant degenerative changes are noted to the left hip joint. Stable degenerative changes to both SI joints and the visualized lumbar spine. No acute soft tissue abnormality. Atherosclerotic vascular calcifications. Multiple surgical clips to bilateral inguinal regions. [facility] Diego Castellon MD - 11/19/2024 EXAMINATION: ONE X-RAY VIEW OF THE PELVIS AND TWO X-RAY VIEWS OF EACH OF THE BILATERAL HIPS 11/19/2024 12:42 pm COMPARISON: CT chest, abdomen and pelvis 08/06/2024. HISTORY: ORDERING SYSTEM PROVIDED HISTORY: Pain, unable to walk, fall 2 weeks ago. TECHNOLOGIST PROVIDED HISTORY: Pain, unable to walk, fall 2 weeks ago. FINDINGS: No acute fractures. No dislocations. No suspicious focal bony lesions. Severe degenerative changes to the right hip joint appears stable. No significant degenerative changes are noted to the left hip joint. Stable degenerative changes to both SI joints and the visualized lumbar spine. No acute soft tissue abnormality. Atherosclerotic vascular calcifications. Multiple surgical clips to bilateral inguinal regions. IMPRESSION: 1. No acute osseous abnormality. If there is persistent clinical concern or difficulty weight-bearing CT can be obtained. 2. Severe degenerative changes to the right hip joint appears stable. 3. Stable degenerative changes to both SI joints and visualized lumbar spine. [facility] [employer]I. LtdRadiology Study observation (narrative)[facility] MIND C.T.I. LtdXR Pelvis and Hip - bilateral ViewsOrdered By: Diego Odom on [id number] [employer] Work Phone: Basic Metabolic Panel w/ Reflex to MGon 08-17-2024 Anion gap [Moles/Vol]6 mmol/LLow9 - 16 mmol/LBon MIND C.T.I. LtdCalcium [Mass/Vol]8.7 mg/dL8.6 - 10.4 mg/dLBon [facility] HealthChloride [Moles/Vol] 99 mmol/L98 - 107 mmol/LBon [facility] HealthCO2 [Moles/Vol]32 mmol/LHigh20 - 31 mmol/LBon [facility] OhioCreatinine [Mass/Vol]0.8 mg/dL0.50 - 0.90 mg/dLBon [facility] OhioEstRadha Rate77- PINFBon [facility] [place] Comment on above: These results are not intended for use in patients <18 years of age. eGFR results are calculated without a race factor using the 2020 CKD-EPI equation. Careful clinical correlation is recommended, particularly when comparing to results calculated using previous equations. The CKD-EPI equation is less accurate in patients with extremes of muscle mass, extra-renal metabolism of creatine, excessive creatine ingestion, or following therapy that affects renal tubular secretion. Glucose [Mass/Vol]117 mg/xHDyas31 - 99 mg/dLBon [facility] [place] Interpretation and review of laboratory resultsAbnormalBon [facility] [place] Potassium [Moles/Vol]4.9 mmol/L3.7 - 5.3 mmol/LBon [facility] OhioSodium [Moles/Vol]137 mmol/L136 - 145 mmol/LBon [facility] OhioUrea nitrogen [Mass/Vol]15 mg/dL8 - 23 mg/dLBon [facility] OhioUrea nitrogen/Creatinine [Mass ratio]19 mg/mg9 - 20Bon [facility] CenterCBC auto differentialon [id number] (Bld) [#/Vol]0.09 10*3/uLBon [facility] OhioBasophils/100 WBC (Bld)1 %0 - 2 %[facility] Medical CenterEosinophils (Bld) [#/Vol]0.36 10*3/uLBon [facility] OhioEosinophils/100 WBC (Bld)5 % High1 - 4 %[facility] Medical CenterErythrocyte distribution width (RBC) [Ratio] 18.4 %High11.8 - 14.4 %[facility] Medical CenterHematocrit (Bld) [Volume fraction]33.4 %Low36.3 - 47.1 %[facility] CenterHemoglobin (Bld) [Mass/Vol]9.7 g/dLLow11.9 - 15.1 g/dLBon [facility] Mer[facility] HealthImmature granulocytes (Bld) [#/Vol][facility] HealthImmature granulocytes/100 WBC (Bld)0 %0[facility] HealthInterpretation and review of laboratory results AbnormalBon [facility] HealthLymphocytes/100 WBC (Bld)19 %Low24 - 43 %[facility] HealthLymphocytes/100 WBC (Bld)1.29 %[facility] CenterH (RBC) [Entitic mass]25.3 pg25.2 - 33.5 pgBon [facility] Medical CenterHC (RBC) [Mass/Vol]29 g/dL28.4 - 34.8 g/dLBon [facility]ours [facility] Medical CenterV (RBC) [Entitic vol] 87.2 fL82.6 - 102.9 fLBon [facility]ours Merc HealthMonocytes/100 WBC (Bld)11 %3 - 12 %[facility] HealthMonocytes/100 WBC (Bld)0.74 %[facility] Neutrophils/100 WBC (Bld)64 %36 - 65 %[facility] MiamisburgNucleated RBC/100 WBC (Bld) [Ratio]0 %0.0 per 100 WBCBon Secours Toledo Hospitaly HealthPlatelet mean volume (Bld) [Entitic vol]9.4 fL8.1 - 13.5 fLBon [facility] HealthPlatelets (Bld) [#/Vol]385 10*3/uLBon [facility] HealthRBC (Bld) [#/Vol]3.83 10*6/uLLow3.95 - 5.11 m/uLSage Memorial Hospital Secours [facility] MiamisburgSegmented neutrophils/100 WBC (Bld)4.34 %[facility] MiamisburgWBC other (Bld) [#/Vol]6.8[facility] HealthSage Memorial Hospital Secours [facility] Hospitaly HealthCulture, Blood 1on [id number] comment (Unsp spec) [Interp]16ML LFABon Secours [facility] Hospitaly HealthCulture, Blood 2on [id number] comment (Unsp spec) [Interp]2 ML RIGHT WRIST ONE BOTTLEBon SecDiley Ridge [facility] Center Laboratoryon [id number] identified Cx Nom (Unsp spec)NO GROWTH 5 DAYSBon [facility] OhioNo Panel Informationon [id number] Description.BLOODBon [facility] CenterBasic Metabolic Panel w/ Reflex to MGon [id number] gap [Moles/Vol]8 mmol/LLow9 - 16 mmol/L Bon [facility] OhioCalcium [Mass/Vol]8.8 mg/dL8.6 - 10.4 mg/dLBon [facility] OhioChloride [Moles/Vol]96 mmol/LLow98 - 107 mmol/LBon [facility] OhioCO2 [Moles/Vol]31 mmol/L20 - 31 mmol/LBon [facility] OhioCreatinine [Mass/Vol]0.8 mg/dL0.50 - 0.90 mg/dLBon [facility] Presbyterian HospitalSolarOne Solutions Dayton Osteopathic HospitalEst, Glom Filt Rate 84- PINFBon [facility] OhioComment on above: These results are not intended for use in patients <18 years of age. eGFR results are calculated without a race factor using the 2020 CKD-EPI equation. Careful clinical correlation is recommended, particularly when comparing to results calculated using previous equations. The CKD-EPI equation is less accurate in patients with extremes of muscle mass, extra-renal metabolism of creatine, excessive creatine ingestion, or following therapy that affects renal tubular secretion. Glucose [Mass/Vol]100 mg/yGUbif13 - 99 mg/dLBon [facility] [place] Interpretation and review of laboratory resultsAbnormalBon [facility] [place] Potassium [Moles/Vol]4.7 mmol/L3.7 - 5.3 mmol/LBon [facility] OhioSodium [Moles/Vol]135 mmol/IVnw881 - 145 mmol/LBon [facility] OhioUrea nitrogen [Mass/Vol]13 mg/dL8 - 23 mg/dLBon [facility] [employer]Urea nitrogen/Creatinine [Mass ratio]16 mg/mg9 - 20Bon [facility] CenterCBC auto differentialon [id number] (Bld) [#/Vol]0.1 10*3/uLBon [facility] HospitalVDP [facility] MiamisburgBasophils/100 WBC (Bld)1 %0 - 2 %[facility] HealthEosinophils (Bld) [#/Vol]0.36 10*3/uLBon [facility] HealthEosinophils/100 WBC (Bld)5 % High1 - 4 %[facility] HealthErythrocyte distribution width (RBC) [Ratio] 18.3 %High11.8 - 14.4 %[facility] HealthHematocrit (Bld) [Volume fraction]34.7 %Low36.3 - 47.1 %Bon [facility] HealthHemoglobin (Bld) [Mass/Vol]10.3 g/dLLow11.9 - 15.1 g/dLBon [facility] Health MiamisburgImmature granulocytes (Bld) [#/Vol][facility] HealthImmature granulocytes/100 WBC (Bld)0 %0[facility] HealthInterpretation and review of laboratory results AbnormalBon [facility] HealthLymphocytes/100 WBC (Bld)16 %Low24 - 43 %Bon [facility] HealthLymphocytes/100 WBC (Bld)1.1 %[facility] SecTriHealth Good Samaritan HospitalH (RBC) [Entitic mass]25.8 pg25.2 - 33.5 pgBon [facility]ours [facility] Medical CenterHC (RBC) [Mass/Vol]29.7 g/dL28.4 - 34.8 g/dLBon SecTriHealth Good Samaritan HospitalV (RBC) [Entitic vol]86.8 fL82.6 - 102.9 fLBon [facility] HealthMonocytes/100 WBC (Bld)11 %3 - 12 %[facility] SecGlenwood Regional [facility] Center HealthMonocytes/100 WBC (Bld)0.77 %[facility] SecDiley Ridge Medical CenterNeutrophils/100 WBC (Bld)67 %High36 - 65 %[facility] SecDiley Ridge Medical Center Nucleated RBC/100 WBC (Bld) [Ratio]0 %0.0 per 100 WBCHealthsouth Medical Center Platelet mean volume (Bld) [Entitic vol]8.9 fL8.1 - 13.5 fLBon [facility] HealthPlatelets (Bld) [#/Vol]362 10*3/uLBon [facility] HealthRBC (Bld) [#/Vol]4 10*6/uL3.95 - 5.11 m/uLHealthsouth Medical CenterSegmented neutrophils/100 WBC (Bld)4.58 %Bon [facility] OhioWBC other (Bld) [#/Vol] 6.9Bon [facility] CenterBasic Metabolic Panel w/ Reflex to MGon [id number] gap [Moles/Vol]7 mmol/LLow9 - 16 mmol/LBon [facility] OhioCalcium [Mass/Vol]8.7 mg/dL8.6 - 10.4 mg/dLBon [facility] OhioChloride [Moles/Vol]98 mmol/L98 - 107 mmol/LBon [facility] OhioCO2 [Moles/Vol]31 mmol/L20 - 31 mmol/LBon [facility] OhioCreatinine [Mass/Vol] 0.7 mg/dL0.50 - 0.90 mg/dLBon [facility] OhioEst, Glom Filt Rate- PINFBon [facility] OhioComment on above: These results are not intended for use in patients <18 years of age. eGFR results are calculated without a race factor using the 2020 CKD-EPI equation. Careful clinical correlation is recommended, particularly when comparing to results calculated using previous equations. The CKD-EPI equation is less accurate in patients with extremes of muscle mass, extra-renal metabolism of creatine, excessive creatine ingestion, or following therapy that affects renal tubular secretion. Glucose [Mass/Vol]104 mg/zEHuxt53 - 99 mg/dLBon [facility] [place] Interpretation and review of laboratory resultsAbnormalBon [facility] [place] Potassium [Moles/Vol]5 mmol/L3.7 - 5.3 mmol/LBon [facility] OhioSodium [Moles/Vol]136 mmol/L136 - 145 mmol/LBon [facility] OhioUrea nitrogen [Mass/Vol]12 mg/dL8 - 23 mg/dLBon [facility] OhioUrea nitrogen/Creatinine [Mass ratio]17 mg/mg9 - 20Bon [facility] CenterCBC auto differentialon [id number] (Bld) [#/Vol]0.08 10*3/uLBon [facility] OhioBasophils/100 WBC (Bld)1 %0 - 2 %Bon Secchelsey [facility] Hospitaly HealthEosinophils (Bld) [#/Vol]0.44 10*3/uLBon [facility] HealthEosinophils/100 WBC (Bld)6 % High1 - 4 %Bon Secchelsey [facility] HealthErythrocyte distribution width (RBC) [Ratio] 18.6 %High11.8 - 14.4 %Bon [facility]cchelsey [facility] HealthHematocrit (Bld) [Volume fraction]34.4 %Low36.3 - 47.1 %Bon [facility]cchel[facility] HealthHemoglobin (Bld) [Mass/Vol]10.2 g/dLLow11.9 - 15.1 g/dLBon [facility]tering Health MiamisburgImmature granulocytes (Bld) [#/Vol][facility] HealthImmature granulocytes/100 WBC (Bld)0 %0Bon [facility] HealthInterpretation and review of laboratory results AbnormalBon SecKadlec Regional Medical Centery HealthLymphocytes/100 WBC (Bld)17 %Low24 - 43 %Bon Secchelsey [facility] HealthLymphocytes/100 WBC (Bld)1.19 %[facility] Secchelsey [facility] MiamisburgMCH (RBC) [Entitic mass]26.2 pg25.2 - 33.5 pgBon SecTriHealth Good Samaritan HospitalHC (RBC) [Mass/Vol]29.7 g/dL28.4 - 34.8 g/dLBon SecDiley Ridge Medical CenterMCV (RBC) [Entitic vol]88.2 fL82.6 - 102.9 fLSage [facility] Hospital Secchelsey [facility] HealthMonocytes/100 WBC (Bld)10 %3 - 12 %[facility] Secours [facility] HealthMonocytes/100 WBC (Bld)0.71 %[facility] Secchelsey [facility] MiamisburgNeutrophils/100 WBC (Bld)66 %High36 - 65 %[facility] SecGlenwood Regional Medical Center Health Nucleated RBC/100 WBC (Bld) [Ratio]0 %0.0 per 100 WBCHealthsouth Medical Center Platelet mean volume (Bld) [Entitic vol]9.7 fL8.1 - 13.5 fLBon Secchelsey [facility] HealthPlatelets (Bld) [#/Vol]385 10*3/uLBon [facility] HealthRBC (Bld) [#/Vol]3.9 10*6/uLLow3.95 - 5.11 m/uLHealthsouth Medical CenterSegmented neutrophils/100 WBC (Bld)4.78 %[facility] CenterWBC other (Bld) [#/Vol] 7.2Bon [facility]n and TIBCon 08-15-2024 Iron [Mass/Vol]15 ug/dLLow37 - 145 ug/dLBon [facility] Hospitaln binding capacity [Mass/Vol]270 ug/dL250 - 450 ug/dLBon [facility] Hospitaln saturation [Mass fraction]6 %Low20 - 55 %[facility] CenterUIBC255 ug/dL 112 - 347 ug/dLBon [facility] OhioNo Panel Informationon 08-15-2024 Interpretation and review of laboratory resultsAbnormBon [facility]ours [facility] Medical CenterReticulocyteson 20-47-9000Cesibfuv reticulocytes/Total reticulocytes (Bld)23.4 %High2.7 - 18.3 %[facility] CenterInterpretation and review of laboratory resultsAbnormInova Children's HospitalRetic Hemoglobin 22.1 pgLow28.2 - 35.7 pgHealthsouth Medical CenterReticulocytes (Bld) [#/Vol]0.108 10*3/uLHighHealthsouth Medical CenterReticulocytes/100 RBC (Bld)2.8 %High0.5 - 1.9 %[facility] HospitalVitamin B12 & Folateon 60-55-0588Aznkjifhi (Vitamin B12) [Mass/Vol]494 pg/mL232 - 1245 pg/mLHealthsouth Medical CenterFolate [Mass/Vol]5.3 ng/mL4.8 - 24.2 ng/mLClinch Valley Medical CenterVitamin D 25 Hydroxyon [id number] D3 [Mass/Vol]19.8 ng/mLLow30.0 - 100.0 ng/mLHealthsouth Medical CenterComment on above: Reference Range: Vitamin D status Range Deficiency <20 ng/mL Mild Deficiency 20-30 ng/mL Sufficiency 30-100 ng/mL Toxicity >100 ng/mL Basic Metabolic Panel w/ Reflex to MGon [id number] gap [Moles/Vol]9 mmol/L9 - 16 mmol/LBon [facility]ours Mer[facility] HealthCalcium [Mass/Vol]8.3 mg/dLLow8.6 - 10.4 mg/dLBon [facility] HealthChloride [Moles/Vol]100 mmol/L98 - 107 mmol/LBon [facility] HealthCO2 [Moles/Vol]30 mmol/L20 - 31 mmol/LBon [facility] HealthCreatinine [Mass/Vol]0.6 mg/dL0.50 - 0.90 mg/dLBon [facility] Health Est, Glom Filt Rate- PINFBon [facility]ours Mercy HealthComment on above: These results are not intended for use in patients <18 years of age. eGFR results are calculated without a race factor using the 2020 CKD-EPI equation. Careful clinical correlation is recommended, particularly when comparing to results calculated using previous equations. The CKD-EPI equation is less accurate in patients with extremes of muscle mass, extra-renal metabolism of creatine, excessive creatine ingestion, or following therapy that affects renal tubular secretion. Glucose [Mass/Vol]85 mg/dL74 - 99 mg/dLBon [facility]ours [facility] HealthInterpretation and review of laboratory resultsAbnormalBon [facility] HealthPotassium [Moles/Vol]4.4 mmol/L3.7 - 5.3 mmol/LBon [facility] HealthSodium [Moles/Vol] 139 mmol/L136 - 145 mmol/LBon [facility] HealthUrea nitrogen [Mass/Vol]12 mg/dL8 - 23 mg/dLBon [facility] HealthUrea nitrogen/Creatinine [Mass ratio]20 mg/mg9 - 20Bon [facility] HealthBon [facility]ours Mercy HealthCBC auto differential on [id number] (Bld) [#/Vol]0.06 10*3/uLBon [facility] Basophils/100 WBC (Bld)1 %0 - 2 %[facility] HealthEosinophils (Bld) [#/Vol]0.5 10*3/uLHighBon [facility]ours [facility] HealthEosinophils/100 WBC (Bld)6 %High1 - 4 %[facility] HealthErythrocyte distribution width (RBC) [Ratio]18.8 % High11.8 - 14.4 %[facility]y HealthHematocrit (Bld) [Volume fraction]33.7 %Low36.3 - 47.1 %[facility] HealthHemoglobin (Bld) [Mass/Vol]10 g/dLLow 11.9 - 15.1 g/dLBon Secours [facility] Hospitaly HealthImmature granulocytes (Bld) [#/Vol]0.03 10*3/uLBon [facility] HealthImmature granulocytes/100 WBC (Bld)0 %0Bon [facility]y HealthInterpretation and review of laboratory resultsAbnormalBon [facility]ours [facility] HealthLymphocytes/100 WBC (Bld)14 %Low24 - 43 %[facility] HealthLymphocytes/100 WBC (Bld)1.07 %LowBon SecTriHealth Good Samaritan HospitalH (RBC) [Entitic mass]25.7 pg25.2 - 33.5 pgBon Secours [facility] Medical CenterHC (RBC) [Mass/Vol] 29.7 g/dL28.4 - 34.8 g/dLBon Secours [facility] Hospitaly [facility] HospitalMCV (RBC) [Entitic vol]86.6 fL 82.6 - 102.9 fLBon [facility]ours [facility] HealthMonocytes/100 WBC (Bld)9 %3 - 12 %[facility] HealthMonocytes/100 WBC (Bld)0.7 %[facility] Health Neutrophils/100 WBC (Bld)70 %High36 - 65 %[facility]y HealthNucleated RBC/100 WBC (Bld) [Ratio]0 %0.0 per 100 WBCBon Secours [facility] Hospitaly HealthPlatelet mean volume (Bld) [Entitic vol]9.4 fL8.1 - 13.5 fLBon Secours Mercy HealthPlatelets (Bld) [#/Vol]331 10*3/uLBon [facility] HealthRBC (Bld) [#/Vol]3.89 10*6/uLLow 3.95 - 5.11 m/uLBon [facility]ours [facility] Hospitaly HealthSegmented neutrophils/100 WBC (Bld)5.56 %[facility] HealthWBC other (Bld) [#/Vol]7.9[facility] MiamisburgBon SecDiley Ridge Medical CenterBasic Metab w/rfx MGon [id number] gap [Moles/Vol]11 mmol/LNormal9-16[facility] HospitalComment on above:Performed By: #### CMPX, CDP #### [facility] [address] [place] [address] Dr. [place], [place] [id number] Two Way Radio Technician: Apolinar Lemus MDBUN/CRE Lfcnm62Kvchqd0-73[facility] Comment on above:Performed By: #### CMPX, CDP #### [address] [place] [address] [address] Radio Technician: Apolinar Lemus MDCalcium [Mass/Vol]8.4 mg/dLLow8.6-10.4[place] HospitalComment on above:Performed By: #### CMPX, CDP #### [address] [place] [address] [address] Radio Technician: ANNITA Mckenziehloride [Moles/Vol]102 mmol/HTvgsmu94-536SozqnBluffton HospitalComment on above:Performed By: #### CMPX, CDP #### [address] [place] [address] [address] Radio Technician: Apolinar Lemus MDCO2 [Moles/Vol]27 mmol/EZdgiuj45-82Asmir [facility] HospitalComment on above:Performed By: #### CMPX, CDP #### [facility] [address] [place] [address] [place] [address] [address] Radio Technician: ANNITA Mckenziereatinine [Mass/Vol]0.7 mg/dLNormal0.50-0.90[facility] HospitalComment on above:Performed By: #### CMPX, CDP #### [address] [place], [place] [id number] Two Way Radio Technician: Apolinar Lemus MDGFR/1.73 sq M.predicted among non-blacks MDRD (S/P/Bld) [Vol rate/Area]mL/min/{1.73_m2}Normal>60[facility] HospitalComment on above:Result Comment: These results are not intended for use in patients <18 years of age. eGFR results are calculated without a race factor using the 2020 CKD-EPI equation. Careful clinical correlation is recommended, particularly when comparing to results calculated using previous equations. The CKD-EPI equation is less accurate in patients with extremes of muscle mass, extra-renal metabolism of creatine, excessive creatine ingestion, or following therapy that affects renal tubular secretion.Performed By: #### CMPX, CDP #### [address] [place] [address] [address] Radio Technician: Apolinar Lemus MDGlucose [Mass/Vol]112 mg/hZUgmk56-87LnqnmCincinnati Children's Hospital Medical CenterComment on above:Performed By: #### CMPX, CDP #### [address] [place], [place] [id number] Two Way Radio Technician: ROJAS Mckenzieotassium [Moles/Vol]3.6 mmol/LLow3.7-5.3MCincinnati Children's Hospital Medical CenterComment on above:Performed By: #### CMPX, CDP #### [address] [place], [place] [id number] Two Way Radio Technician: ADÁN Mckenzieodium [Moles/Vol]140 mmol/SPdvpqy571-636KwppbBluffton HospitalComment on above:Performed By: #### CMPX, CDP #### [address] [place] [address] [address] Radio Technician: Apolinar Lemus MDUrea nitrogen [Mass/Vol]12 mg/dLNormal8-23[facility] HospitalComment on above:Performed By: #### CMPX, CDP #### [address] [place] [address] [address] Radio Technician: Apolinar Lemus MDDan[facility] Met[facility] Panel w/ Reflex to MGon 08-13-2024 Anion gap [Moles/Vol]11 mmol/L9 - 16 mmol/LBon [facility]ours mxHeroy HealthCalcium [Mass/Vol]8.4 mg/dLLow8.6 - 10.4 mg/dLBon Secours Mercy HealthChloride [Moles/Vol]102 mmol/L98 - 107 mmol/LBon [facility] Hospitaly HealthCO2 [Moles/Vol]27 mmol/L20 - 31 mmol/LBon Secours [facility] Hospitaly HealthCreatinine [Mass/Vol]0.7 mg/dL0.50 - 0.90 mg/dLBon Secours Toledo Hospitaly HealthEst, Glom Filt Rate- PINFBon SecKadlec Regional Medical CenterSolarOne Solutions Dayton Osteopathic HospitalComment on above: These results are not intended for use in patients <18 years of age. eGFR results are calculated without a race factor using the 2020 CKD-EPI equation. Careful clinical correlation is recommended, particularly when comparing to results calculated using previous equations. The CKD-EPI equation is less accurate in patients with extremes of muscle mass, extra-renal metabolism of creatine, excessive creatine ingestion, or following therapy that affects renal tubular secretion. Glucose [Mass/Vol]112 mg/zRUwkl98 - 99 mg/dLBon [facility] Presbyterian HospitalVsnap Interpretation and review of laboratory resultsAbnormalBon SecDiley Ridge Medical Center Potassium [Moles/Vol]3.6 mmol/LLow3.7 - 5.3 mmol/LBon Secours [facility] Hospitaly [facility]opathic HospitalSodium [Moles/Vol]140 mmol/L136 - 145 mmol/LBon SecKadlec Regional Medical Centery HealthUrea nitrogen [Mass/Vol]12 mg/dL8 - 23 mg/dLBon Secours Tol[facility] Hospitaly HealthUrea nitrogen/Creatinine [Mass ratio]17 mg/mg9 - 20[facility] HealthBon Secours Tol[facility] Hospitaly [facility] Osteopathic HospitalCBC auto differentialon [id number] (Bld) [#/Vol]0.07 10*3/uLBon Secours Mercy HealthBasophils/100 WBC (Bld)1 %0 - 2 %[facility] HealthEosinophils (Bld) [#/Vol]0.54 10*3/uLHighBon Secours Mercy HealthEosinophils/100 WBC (Bld)6 %High1 - 4 %[facility] HealthErythrocyte distribution width (RBC) [Ratio]19.1 %High11.8 - 14.4 %[facility] HealthHematocrit (Bld) [Volume fraction]34.3 %Low36.3 - 47.1 %[facility] HealthHemoglobin (Bld) [Mass/Vol]10.1 g/dLLow11.9 - 15.1 g/dLBon Secours Toledo Hospitaly HealthImmature granulocytes (Bld) [#/Vol]0.03 10*3/uLBon Secours Mercy HealthImmature granulocytes/100 WBC (Bld)0 %0[facility] HealthInterpretation and review of laboratory resultsAbnormalBon Secours [facility] Hospitaly HealthLymphocytes/100 WBC (Bld)18 %Low24 - 43 %[facility] HealthLymphocytes/100 WBC (Bld)1.55 %Bon SecTriHealth Good Samaritan HospitalH (RBC) [Entitic mass]25.4 pg25.2 - 33.5 pgBon Secours MetroHealth Main Campus Medical CenterHC (RBC) [Mass/Vol]29.4 g/dL28.4 - 34.8 g/dLBon Secours Kettering Health MiamisburgMCV (RBC) [Entitic vol]86.4 fL82.6 - 102.9 fLBon Secours [facility] HealthMonocytes/100 WBC (Bld)10 %3 - 12 %[facility] HealthMonocytes/100 WBC (Bld)0.85 %[facility] HealthNeutrophils/100 WBC (Bld)65 %36 - 65 %[facility] HealthNucleated RBC/100 WBC (Bld) [Ratio]0 %0.0 per 100 WBCBon Secours Toledo Hospitaly HealthPlatelet mean volume (Bld) [Entitic vol]9.1 fL8.1 - 13.5 fLBon Secours Toledo Hospitaly HealthPlatelets (Bld) [#/Vol]305 10*3/uLBon Secours Toledo Hospitaly HealthRBC (Bld) [#/Vol]3.97 10*6/uL3.95 - 5.11 m/uLBon Secours Toledo Hospitaly [facility]opathic HospitalSegmented neutrophils/100 WBC (Bld)5.72 %[facility] HealthWBC other (Bld) [#/Vol] 8.8Bon [facility] OhioBon [facility] with Diffon 08-13-2024 Abs. Basophil0.07 k/uLNormal0.00-0.20[facility] HospitalComment on above: Performed By: #### CMPX, CDP #### [address] [place], [place] [address] [address] Radio Technician: Cruz Mckenzie.Imm.Granulocyte0.03 k/uLNormal0.00-0.30[facility] HospitalComment on above:Performed By: #### CMPX, CDP #### [address] [place] [address] [address] Radio Technician: Cruz Mckenzie.Neutrophil (Seg)5.72 k/uLNormal1.50-8.10[facility] HospitalComment on above:Performed By: #### CMPX, CDP #### [address] [place], [place] [address] [address] Radio Technician: Apolinar Lemus MDBasophils/100 WBC (Bld)1 %Normal0-2MUniversity Hospitals Beachwood Medical Center HospitalComment on above:Performed By: #### CMPX, CDP #### [address] [place], [place] [address] [address] Radio Technician: JADEN Mckenzieosinophils (Bld) [#/Vol]0.54 10*3/uLHigh0.00-0.44 [facility] HospitalComment on above:Performed By: #### CMPX, CDP #### [address] [place], [place] 164[address]83 Two Way Radio Technician: JADEN Mckenzieosinophils/100 WBC (Bld)6 %High1-4[facility] HospitalComment on above:Performed By: #### CMPX, CDP #### [address] [place], [place] 966[address]83 Two Way Radio Technician: Apolinar Lemus MDErythrocyte distribution width (RBC) [Ratio]19.1 % High11.8-14.4[place] HospitalComment on above:Performed By: #### CMPX, CDP #### [address] [place], [place] [address]166483 Two Way Radio Technician: Apolinar Lemus MDHematocrit (Bld) [Volume fraction]34.3 %Low 36.3-47.1MUniversity Hospitals Beachwood Medical Center HospitalComment on above:Performed By: #### CMPX, CDP #### [address] [place], [place] 0747483 Two Way Radio Technician: Apolinar Lemus MDHemoglobin (Bld) [Mass/Vol]10.1 g/dLLow11.9-15.1 [place] HospitalComment on above:Performed By: #### CMPX, CDP #### [address] [place], [place] 5890983 Two Way Radio Technician: Apolinar Lemus MDImmature granulocytes/100 WBC (Bld)0 %Urrhqb1RazrbBluffton HospitalComment on above:Performed By: #### CMPX, CDP #### [address] [place], [facility] Two Way Radio Technician: Apolinar Lemus MDLymphocytes (Bld) [#/Vol]1.55 10*3/uLNormal 1.10-3.70[place] HospitalComment on above:Performed By: #### CMPX, CDP #### [address] [place], [place] 1072383 Two Way Radio Technician: Apolinar Lemus MDLymphocytes/100 WBC (Bld)18 %Bdd48-53Ztyts [facility]iffin HospitalComment on above:Performed By: #### CMPX, CDP #### [address] [place], [place] 7720583 Two Way Radio Technician: BUZZ MckenzieCH (RBC) [Entitic mass]25.4 xdWkrpzb03.2-33.5 [place] HospitalComment on above:Performed By: #### CMPX, CDP #### [address] [place], [place] 4824683 Two Way Radio Technician: BUZZ MckenzieCHC (RBC) [Mass/Vol]29.4 g/aIIdmghy90.4-34.8[facility] HospitalComment on above:Performed By: #### CMPX, CDP #### [address] [place], [place] 8635783 Two Way Radio Technician: BUZZ MckenzieCV (RBC) [Entitic vol]86.4 pEFcrpob49.6-102.9 [facility] HospitalComment on above:Performed By: #### CMPX, CDP #### [address] [place], [place] 0854183 Two Way Radio Technician: BUZZ Mckenzieonocytes (Bld) [#/Vol]0.85 10*3/uLNormal0.10-1.20 [facility] HospitalComment on above:Performed By: #### CMPX, CDP #### [address] [place], [place] 6795083 Two Way Radio Technician: BUZZ Mckenzieonocytes/100 WBC (Bld)10 %Normal3-12[facility] HospitalComment on above:Performed By: #### CMPX, CDP #### [address] [place], [place] 3338583 Two Way Radio Technician: Apolinar Lemus MDNeutrophil (Seg)65 %Ayrzxc32-80Vnouj [facility] HospitalComment on above:Performed By: #### CMPX, CDP #### [address] [place] [id number] Two Way Radio Technician: SVETLANA Mckenzie Automated0.0 per 100 WBCNormal0.0[facility] HospitalComment on above:Performed By: #### CMPX, CDP #### [address] [place] [address] Two [address] Radio Technician: Nicanor Mckenzie mean volume (Bld) [Entitic vol]9.1 fL Normal8.1-13.5[facility] HospitalComment on above:Performed By: #### CMPX, CDP #### [address] [place] [address] [address] Radio Technician: Corey Mckenzie (Bld) [#/Vol]305 10*3/tBBsdgvh499-254 [facility] HospitalComment on above:Performed By: #### CMPX, CDP #### [address] [place], [facility] Two Way Radio Technician: GEOVANY Mckenzie (Bld) [#/Vol]3.97 10*6/uLNormal3.95-5.11[facility] HospitalComment on above:Performed By: #### CMPX, CDP #### [address] [place], [facility] Two Way Radio Technician: RAZA Mckenzie (Bld) [#/Vol]8.8 10*3/uLNormal3.5-11.3MCincinnati Children's Hospital Medical CenterComment on above:Performed By: #### CMPX, CDP #### [address] [place], [place] 1784883 Two Way Radio Technician: Mihaela Mckenzie Metabolic Panelon [id number] gap [Moles/Vol]10 mmol/L9 - 16 mmol/LBon [facility] HealthCalcium [Mass/Vol]8.5 mg/dLLow8.6 - 10.4 mg/dLBon [facility] HealthChloride [Moles/Vol]100 mmol/L98 - 107 mmol/LBon [facility] HealthCO2 [Moles/Vol]28 mmol/L20 - 31 mmol/LBon [facility] OhioCreatinine [Mass/Vol]0.7 mg/dL0.50 - 0.90 mg/dLBon [facility] HealthEst, Glom Filt Rate- PINFBon [facility] OhioComment on above: These results are not intended for use in patients <18 years of age. eGFR results are calculated without a race factor using the 2020 CKD-EPI equation. Careful clinical correlation is recommended, particularly when comparing to results calculated using previous equations. The CKD-EPI equation is less accurate in patients with extremes of muscle mass, extra-renal metabolism of creatine, excessive creatine ingestion, or following therapy that affects renal tubular secretion. Glucose [Mass/Vol]89 mg/dL74 - 99 mg/dLBon [facility] OhioPotassium [Moles/Vol]3.7 mmol/L3.7 - 5.3 mmol/LBon [facility] OhioSodium [Moles/Vol] 138 mmol/L136 - 145 mmol/LBon [facility] OhioUrea nitrogen [Mass/Vol]8 mg/dL8 - 23 mg/dLBon [facility] OhioUrea nitrogen/Creatinine [Mass ratio]11 mg/mg9 - 20Bon [facility] OhioBasic Metabolic Profon 25-61-9230Tunls gap [Moles/Vol]10 mmol/LNormal9-16[facility] HospitalComment on above:Performed By: ###JOSE M GRAY #### [facility] [address] [place] [address] [place] [address] [address] Radio Technician: Apolinar Lemus MDBUN/CRE Uboku98Gqohlh6-70Psxxm [facility] Comment on above:Performed By: ###JOSE M GRAY #### [facility] [address] [place] [address] [address] Radio Technician: ANNITA Mckenziealcium [Mass/Vol]8.5 mg/dLLow8.6-10.4[facility] HospitalComment on above:Performed By: #### GRACIE, UAX #### [address] [place], [place] 8115383 Two Way Radio Technician: ANNITA Mceknziehloride [Moles/Vol]100 mmol/DSdazmj74-255VrvynBluffton HospitalComment on above:Performed By: #### GRACIE, UAX #### [address] [place], [place] 8006183 Two Way Radio Technician: Apolinar Lemus MDCO2 [Moles/Vol]28 mmol/SDeegie80-49KsgfjBluffton HospitalComment on above:Performed By: #### GRACIE UAX #### [address] [place], [place] [address]191983 Two Way Radio Technician: ANNITA Mckenziereatinine [Mass/Vol]0.7 mg/dLNormal0.50-0.90[facility] HospitalComment on above:Performed By: #### GRACIE, UAX #### [address] [place], [place] 2189683 Two Way Radio Technician: Apolinar Lemus MDGFR/1.73 sq M.predicted among non-blacks MDRD (S/P/Bld) [Vol rate/Area]mL/min/{1.73_m2}Normal>60[facility] HospitalComment on above:Result Comment: These results are not intended for use in patients <18 years of age. eGFR results are calculated without a race factor using the 2020 CKD-EPI equation. Careful clinical correlation is recommended, particularly when comparing to results calculated using previous equations. The CKD-EPI equation is less accurate in patients with extremes of muscle mass, extra-renal metabolism of creatine, excessive creatine ingestion, or following therapy that affects renal tubular secretion.Performed By: #### GRACIE, UAX #### [address] [place], [place] [address]83 Two Way Radio Technician: Apolinar Lemus MDGlucose [Mass/Vol]89 mg/zUFrgimw78-28Lfzjj [facility] HospitalComment on above:Performed By: #### UMBENEDICTOO, UAX #### [facility] [address] [place] [address] Dr. [place], [place] 9413183 Two Way Radio Technician: Apolinar Lemus MDPotassium [Moles/Vol]3.7 mmol/LNormal3.7-5.3MUniversity Hospitals Beachwood Medical Center HospitalComment on above:Performed By: #### GRACIE, UAX #### [facility] [address] [place] [address] Dr. [place], [place] 2887183 Two Way Radio Technician: Apolinar Lemus MDSodium [Moles/Vol]138 mmol/HSpxzvm405-305XptecBluffton HospitalComment on above:Performed By: #### GRACIE, UAX #### [address] [place], [place] 2668383 Two Way Radio Technician: Apolinar Lemus MDUrea nitrogen [Mass/Vol]8 mg/dLNormal8-23[facility] HospitalComment on above:Performed By: #### GRACIE, UAX #### [address] [place], [place] [address]12[address]83 Two Way Radio Technician: ANNITA Mckenzie-Reactive Proteinon [id number] High sensitivity method [Mass/Vol]21.5 mg/LHigh0.0 - 5.0 mg/LBon [facility] CRP [Mass/Vol]21.5 mg/LHigh0.0-5.0[facility] HospitalComment on above: Performed By: #### GRACIE, UAX #### [address] [place] [address] [address] Radio Technician: ANNITA MckenzieBC with Auto Differentialon [id number] (Bld) [#/Vol]0.06 10*3/uLBon [facility] OhioBasophils/100 WBC (Bld)1 %0 - 2 %[facility] MiamisburgEosinophils (Bld) [#/Vol]0.48 10*3/uLHighBon Secours [facility]tering Health MiamisburgEosinophils/100 WBC (Bld)6 %High1 - 4 %[facility] Erythrocyte distribution width (RBC) [Ratio]19.2 %High11.8 - 14.4 %Bon [facility] OhioHematocrit (Bld) [Volume fraction]35.7 %Low36.3 - 47.1 %[facility] Medical CenterHemoglobin (Bld) [Mass/Vol]11.1 g/dLLow11.9 - 15.1 g/dLBon Secours Kettering Health MiamisburgImmature granulocytes (Bld) [#/Vol][facility] MiamisburgImmature granulocytes/100 WBC (Bld)0 %0Bon [facility] OhioInterpretation and review of laboratory resultsAbnormalBon [facility] OhioLymphocytes/100 WBC (Bld)16 %Low24 - 43 %[facility] Medical CenterLymphocytes/100 WBC (Bld)1.18 %[facility] HospitalH (RBC) [Entitic mass]26.1 pg25.2 - 33.5 pgBon [facility] DaytonHC (RBC) [Mass/Vol]31.1 g/dL28.4 - 34.8 g/dLBon SecDiley Ridge Medical CenterMCV (RBC) [Entitic vol]84 fL82.6 - 102.9 fLBon [facility] HealthMonocytes/100 WBC (Bld)7 %3 - 12 %[facility] CenterMonocytes/100 WBC (Bld)0.56 %[facility] Medical CenterNeutrophils/100 WBC (Bld)70 %High36 - 65 %[facility] Nucleated RBC/100 WBC (Bld) [Ratio]0 %0.0 per 100 WBCHealthsouth Medical Center Platelet mean volume (Bld) [Entitic vol]9.3 fL8.1 - 13.5 fLHealthsouth Medical CenterPlatelets (Bld) [#/Vol]328 10*3/uLBon SecGlenwood Regional Medical Center HealthRBC (Bld) [#/Vol]4.25 10*6/uL3.95 - 5.11 m/uLBon [facility] OhioSegmented neutrophils/100 WBC (Bld)5.32 %Bon [facility] OhioWBC other (Bld) [#/Vol] 7.6Bon [facility] OhioBon [facility] OhioCB with Diffon 08-12-2024 Abs. Basophil0.06 k/uLNormal0.00-0.20[facility] HospitalComment on above: Performed By: #### TRAVIS, BMP, CDP #### [address] [place] [address] [address] Radio Technician: MDAbs. MagalyImm.Granulocyte<0.01Hmgywl9.00-0.30[facility] HospitalComment on above:Performed By: #### TRAVIS BMP, CDP #### [address] [place] [address] [address] Radio Technician: MDAbs. MagalyNeutrophil (Seg)5.32 k/uLNormal1.50-8.10[facility] HospitalComment on above:Performed By: #### TRAVIS BMP, CDP #### [address] [place] [address] [address] Radio Technician: Apolinar Lemus MDBasophils/100 WBC (Bld)1 %Normal0-2[facility] HospitalComment on above:Performed By: #### TRAVIS BMP, CDP #### [address] [place] [address] [address] Radio Technician: Apolinar Lemus MDEosinophils (Bld) [#/Vol]0.48 10*3/uLHigh0.00-0.44 [facility] HospitalComment on above:Performed By: #### TRAVIS BMP, CDP #### [address] [place] [address] [address] Radio Technician: JADEN Mckenzieosinophils/100 WBC (Bld)6 %High1-4[facility] HospitalComment on above:Performed By: #### TRAVIS, BMP, CDP #### [address] [place], [place] [address] Two [address] Radio Technician: Apolinar Lemus MDErythrocyte distribution width (RBC) [Ratio]19.2 % High11.8-14.4[facility] HospitalComment on above:Performed By: #### CRP, BMP, CDP #### [address] [place], [place] [address] [address] Radio Technician: Apolinar Lemus MDHematocrit (Bld) [Volume fraction]35.7 %Low 36.3-47.1MUniversity Hospitals Beachwood Medical Center HospitalComment on above:Performed By: #### TRAVIS, BMP, CDP #### [address] [place] [address] [address] Radio Technician: Apolinar Lemus MDHemoglobin (Bld) [Mass/Vol]11.1 g/dLLow11.9-15.1 [facility] HospitalComment on above:Performed By: #### TRAVIS BMP, CDP #### [address] [place], [place] [address] [address] Radio Technician: Apolinar Lemus MDImmature granulocytes/100 WBC (Bld)0 %Qxlqnl9Vazzy [facility] HospitalComment on above:Performed By: #### TRAVIS, BMP, CDP #### [address] [place], [place] [address] [address] Radio Technician: Apolinar Lemus MDLymphocytes (Bld) [#/Vol]1.18 10*3/uLNormal 1.10-3.70[facility] HospitalComment on above:Performed By: #### TRAVIS, BMP, CDP #### [address] [place] [address] Two Way Radio Technician: Eden Mckenziemphocytes/100 WBC (Bld)16 %Rqj57-81Hnlwb [facility] HospitalComment on above:Performed By: #### TRAVIS, BMP, CDP #### [address] [place] [address] [address] Radio Technician: BUZZ MckenzieCH (RBC) [Entitic mass]26.1 efGnhdbv85.2-33.5 [facility] HospitalComment on above:Performed By: #### TRAVIS, BMP, CDP #### [address] [place] [address] [address] Radio Technician: BUZZ MckenzieCHC (RBC) [Mass/Vol]31.1 g/eTKobllu20.4-34.8[facility] HospitalComment on above:Performed By: #### TRAVIS BMP, CDP #### [address] [place] [address] [address] Radio Technician: BUZZ MckenzieCV (RBC) [Entitic vol]84.0 fFUpocbj71.6-102.9 [facility] HospitalComment on above:Performed By: #### TRAVIS BMP, CDP #### [address] [place] [address] [address] Radio Technician: BUZZ Mckenzieonocytes (Bld) [#/Vol]0.56 10*3/uLNormal0.10-1.20 [facility] HospitalComment on above:Performed By: #### TRAVIS, BMP, CDP #### [address] [place] [address] [address] Radio Technician: BUZZ Mckenzieonocytes/100 WBC (Bld)7 %Normal3-12[facility] HospitalComment on above:Performed By: #### TRAVIS, BMP, CDP #### [address] [place], [place] [address]83 Two Way Radio Technician: Apolinar Lemus MDNeutrophil (Seg)70 %Fads42-82MvqhnBluffton Hospital Comment on above:Performed By: #### CRP, BMP, CDP #### [facility] [address] [place] [address] [place] [address] [address] Radio Technician: SVETLANA Mckenzie Automated0.0 per 100 WBCNormal0.0[facility] HospitalComment on above:Performed By: #### CRP, BMP, CDP #### [address] [place] [address] [address] Radio Technician: Nicanor Mckenzie mean volume (Bld) [Entitic vol]9.3 fL Normal8.1-13.5[facility] HospitalComment on above:Performed By: #### TRAVIS, BMP, CDP #### [address] [place] [address] [address] Radio Technician: Corey Mckenzie (Bld) [#/Vol]328 10*3/yHLtutdz737-347 [facility] HospitalComment on above:Performed By: #### TRAVIS, KYLE, CDP #### [address] [place] [address] [address] Radio Technician: GEOVANY Mckenzie (Bld) [#/Vol]4.25 10*6/uLNormal3.95-5.11[facility] HospitalComment on above:Performed By: #### TRAVIS, BMP, CDP #### [address] [place] [address] [address] Radio Technician: RAZA Mckenzie (Bld) [#/Vol]7.6 10*3/uLNormal3.5-11.3MCincinnati Children's Hospital Medical CenterComment on above:Performed By: #### TRAVIS, BMP, CDP #### [address] [place] [address] [address] Radio Technician: Marce Mckenzie [facility] Informationon [id number] and review of laboratory resultsAbPrairie Lakes Hospital & Care CenterXR FOOT LEFT (MIN 3 VIEWS)on [id number] FOOT LEFT (MIN 3 VIEWS) EXAMINATION: THREE XRAY VIEWS OF THE LEFT FOOT 08/12/2024 11:24 am COMPARISON: None. HISTORY: ORDERING SYSTEM PROVIDED HISTORY: Wound TECHNOLOGIST PROVIDED HISTORY: Wound FINDINGS: Bandage material is seen around the 2nd, 3rd, and 4th toes. There is a soft tissue defect at the tip of the 2nd toe consistent with a soft tissue wound. No destructive osseous changes or periostitis. No soft tissue gas. IMPRESSION: Soft tissue wound at the tip of the 2nd toe. No evidence of osteomyelitis or soft tissue gas Interpreted by: Carlo Song MD Signed by: Carlo Song MD 08/12/24 Final resultNoCleveland [facility] ([facility] VIEWS)on [id number] FOOT RIGHT (2 VIEWS)EXAMINATION: TWO XRAY VIEWS OF THE RIGHT FOOT 08/12/2024 11:24 am COMPARISON: None. HISTORY: ORDERING SYSTEM PROVIDED HISTORY: wound TECHNOLOGIST PROVIDED HISTORY: wound FINDINGS: No evidence of osteomyelitis or soft tissue gas. IMPRESSION: No osteomyelitis or soft tissue gas Interpreted by: Carlo Song MD Signed by: Carlo Song MD 08/12/24 Final resultNoC[facility] - left 3 Viewson [id number] tissue wound at the tip of the 2nd toe. No evidence of osteomyelitis or soft tissue gas [facility] RIS CONSOLIDATEDEXAMINATION: THREE XRAY VIEWS OF THE LEFT FOOT 08/12/2024 11:24 am COMPARISON: None. HISTORY: ORDERING SYSTEM PROVIDED HISTORY: Wound TECHNOLOGIST PROVIDED HISTORY: Wound FINDINGS: Bandage material is seen around the 2nd, 3rd, and 4th toes. There is a soft tissue defect at the tip of the 2nd toe consistent with a soft tissue wound. No destructive osseous changes or periostitis. No soft tissue gas. [facility] RIS CONSOLIDATEDCriCarlo mix MD - 08/12/2024 EXAMINATION: THREE XRAY VIEWS OF THE LEFT FOOT 08/12/2024 11:24 am COMPARISON: None. HISTORY: ORDERING SYSTEM PROVIDED HISTORY: Wound TECHNOLOGIST PROVIDED HISTORY: Wound FINDINGS: Bandage material is seen around the 2nd, 3rd, and 4th toes. There is a soft tissue defect at the tip of the 2nd toe consistent with a soft tissue wound. No destructive osseous changes or periostitis. No soft tissue gas. IMPRESSION: Soft tissue wound at the tip of the 2nd toe. No evidence of osteomyelitis or soft tissue gas [facility] HospitalRadiology Study observation (narrative)[facility]XR [facility] - [facility] 2 Viewson [id number] osteomyelitis or soft tissue gas [facility] CONSOLIDATEDEXAMINATION: TWO XRAY VIEWS OF THE RIGHT FOOT 08/12/2024 11:24 am COMPARISON: None. HISTORY: ORDERING SYSTEM PROVIDED HISTORY: wound TECHNOLOGIST PROVIDED HISTORY: wound FINDINGS: No evidence of osteomyelitis or soft tissue gas. [facility] Carlo Rios MD - 08/12/2024 EXAMINATION: TWO XRAY VIEWS OF THE RIGHT FOOT 08/12/2024 11:24 am COMPARISON: None. HISTORY: ORDERING SYSTEM PROVIDED HISTORY: wound TECHNOLOGIST PROVIDED HISTORY: wound FINDINGS: No evidence of osteomyelitis or soft tissue gas. IMPRESSION: No osteomyelitis or soft tissue gas [facility] Centeriology Study observation (narrative)[facility] Foot - right 2 ViewsOrdered By: Carlo Song on [id number] Regional Medical Center Work Phone: Cult, Bloodon [id number], BloodSpecimen Description .BLOOD Special Requests RIGHT AC 20ML Culture NO GROWTH 5 DAYS Report Status FINAL 08/11/2024[facility] HospitalComment on above: Performed By: #### CMPX, CDP #### [facility] [address] [place] [address] [place] [address] Radio Technician: Lavonne Mckenzie,Bloodon [id number],BloodSpecimen Description .BLOOD Special Requests Larm Culture NO GROWTH 5 DAYS Report Status FINAL 08/11/2024[facility] HospitalComment on above: Performed By: #### CMPX, CDP #### [facility] [address] [place] [address] [place] [address] [address] Radio Technician: Mihaela Mckenzei Metab w/rfx MGon [id number] gap [Moles/Vol]8 mmol/LLow9-16[facility] HospitalComment on above:Performed By: #### BMPX, CDP #### [address] [place] [address] [address] Radio Technician: Apolinar Lemus MDBUN/CRE Tdpdd19Vtwltt0-67Qtghh [facility] Comment on above:Performed By: #### BMPX, CDP #### [address] [place] [address] [address] Radio Technician: ANNITA Mckenziealcium [Mass/Vol]8.2 mg/dLLow8.6-10.4MerYale New Haven Psychiatric HospitalComment on above:Performed By: #### BMPX, CDP #### [address] [place] [address] [address] Radio Technician: ANNITA Mckenziehloride [Moles/Vol]109 mmol/WTmcn61-153Qrnhg [facility] HospitalComment on above:Performed By: #### BMPX, CDP #### [address] [place] [address] [address] Radio Technician: Apolinar Lemus MDCO2 [Moles/Vol]26 mmol/KNndrjg23-41Omtar [facility] HospitalComment on above:Performed By: #### BMPX, CDP #### [address] [place] [address] [address] Radio Technician: ANNITA Mckenziereatinine [Mass/Vol]0.6 mg/dLNormal0.50-0.90[facility] HospitalComment on above:Performed By: #### BMPX, CDP #### [address] [place], [place] [id number] Two Way Radio Technician: TOM Mckenzie/1.73 sq M.predicted among non-blacks MDRD (S/P/Bld) [Vol rate/Area]mL/min/{1.73_m2}Normal>60[facility] HospitalComment on above:Result Comment: These results are not intended for use in patients <18 years of age. eGFR results are calculated without a race factor using the 2020 CKD-EPI equation. Careful clinical correlation is recommended, particularly when comparing to results calculated using previous equations. The CKD-EPI equation is less accurate in patients with extremes of muscle mass, extra-renal metabolism of creatine, excessive creatine ingestion, or following therapy that affects renal tubular secretion.Performed By: #### BMPX, CDP #### [address] [place] [address] [address] Radio Technician: Apolinar Lemus MDGlucose [Mass/Vol]96 mg/zFIlkiyv60-32EppdwCincinnati Children's Hospital Medical CenterComment on above:Performed By: #### BMPX, CDP #### [address] [place], [facility] Radio Technician: ROJAS Mckenzieotassium [Moles/Vol]3.6 mmol/LLow3.7-5.3MCincinnati Children's Hospital Medical CenterComment on above:Performed By: #### BMPX, CDP #### [address] [place], [facility] Radio Technician: ADÁN Mckenzieodium [Moles/Vol]143 mmol/XTozbvf577-488XyhijBluffton HospitalComment on above:Performed By: #### BMPX, CDP #### [address] [place], [facility] Two [address] Radio Technician: Apolinar Lemus MDUrea nitrogen [Mass/Vol]9 mg/dLNormal8-23[facility] HospitalComment on above:Performed By: #### BMPX, CDP #### [address] [place] [address] [address] Radio Technician: Apolinar Lemus MDDanbury Hospital Metabolic Panel w/ Reflex to MGon 08-10-2024 Anion gap [Moles/Vol]8 mmol/LLow9 - 16 mmol/LBon SecKadlec Regional Medical CenterSolarOne Solutions HealthCalcium [Mass/Vol]8.2 mg/dLLow8.6 - 10.4 mg/dLBon SecKadlec Regional Medical CenterSolarOne Solutions HealthChloride [Moles/Vol]109 mmol/LHigh98 - 107 mmol/LBon SecGlenwood Regional Medical Center HealthCO2 [Moles/Vol] 26 mmol/L20 - 31 mmol/LBon SecDiley Ridge Medical CenterCreatinine [Mass/Vol]0.6 mg/dL 0.50 - 0.90 mg/dLBon Secours Toledo HospitalSolarOne Solutions HealthEst, Glom Filt Rate- PINFBon [facility]byterian HospitalSolarOne Solutions [facility] Osteopathic HospitalComment on above: These results are not intended for use in patients <18 years of age. eGFR results are calculated without a race factor using the 2020 CKD-EPI equation. Careful clinical correlation is recommended, particularly when comparing to results calculated using previous equations. The CKD-EPI equation is less accurate in patients with extremes of muscle mass, extra-renal metabolism of creatine, excessive creatine ingestion, or following therapy that affects renal tubular secretion. Glucose [Mass/Vol]96 mg/dL74 - 99 mg/dLBon Co[facility] Springs HospitalVDP Toledo HospitalVsnapInterpretation and review of laboratory resultsAbnormalBon [facility] HospitalSolarOne Solutions [facility] Osteopathic HospitalPotassium [Moles/Vol]3.6 mmol/LLow3.7 - 5.3 mmol/LBon SecKadlec Regional Medical CenterSolarOne Solutions [facility] Osteopathic HospitalSodium [Moles/Vol]143 mmol/L136 - 145 mmol/LBon [facility] Eso TechnologiesUrea nitrogen [Mass/Vol]9 mg/dL8 - 23 mg/dLBon [facility] OhioUrea nitrogen/Creatinine [Mass ratio]15 mg/mg9 - 20Bon SecGlenwood Regional Medical Center HealthBon SecDiley Ridge Medical CenterCBC auto differentialon [id number] (Bld) [#/Vol]0.04 10*3/uLBon Co[facility] Springs HospitalVDP Toledo HospitalVsnapErythrocyte distribution width (RBC) [Ratio]20 %High11.8 - 14.4 %Bon [facility] OhioImmature granulocytes (Bld) [#/Vol][facility] Interpretation and review of laboratory resultsAbnormalHealthsouth Medical Center Lymphocytes/100 WBC (Bld)1.02 %LowBon [facility] OhioMonocytes/100 WBC (Bld)0.58 %[facility] Medical CenterNeutrophils/100 WBC (Bld)66 %High36 - 65 %[facility] Medical CenterNucleated RBC/100 WBC (Bld) [Ratio]0 %0.0 per 100 WBCHealthsouth Medical CenterSegmented neutrophils/100 WBC (Bld)4.4 %[facility] Medical CenterWBC other (Bld) [#/Vol]6.6Bon SecDiley Ridge Medical CenterBon [facility] [place] CBC with Diffon [id number]. Basophil0.04 k/uLNormal0.00-0.20[facility] HospitalComment on above:Performed By: #### BMPX, CDP #### [address] [place] [id number] Two Way Radio Technician: Cruz Mckenzie.Imm.Granulocyte<0.45Fijeri8.00-0.30[facility] HospitalComment on above:Performed By: #### BMPX, CDP #### [address] [place] [address] [address] Radio Technician: Cruz Mckenzie.Neutrophil (Seg)4.40 k/uLNormal1.50-8.10[facility] HospitalComment on above:Performed By: #### BMPX, CDP #### [address] [place], [place] [address] [address] Radio Technician: Apolinar Lemus MDBasophils/100 WBC (Bld)1 %Normal0-2Bon [facility] OhioComment on above:Performed By: #### BMPX, CDP #### [address] [place] [address] Two Way Radio Technician: Apolinar Lemus MDEosinophils (Bld) [#/Vol]0.49 10*3/uLHigh0.00-0.44 [facility] Medical CenterComment on above:Performed By: #### BMPX, CDP #### [address] [place] [address] [address] Radio Technician: Apolinar Lemus MDEosinophils/100 WBC (Bld)8 %High1-4Bon [facility] on above:Performed By: #### BMPX, CDP #### [address] [place], [place] [address] [address] Radio Technician: Apolinar Lemus MDErythrocyte distribution width (RBC) [Ratio]20.0 % High11.8-14.4[facility] on above:Performed By: #### BMPX, CDP #### [address] [place] [address] [address] Radio Technician: Apolinar Lemus MDHematocrit (Bld) [Volume fraction]31.9 %Low 36.3-47.1Bon [facility] on above:Performed By: #### BMPX, CDP #### [address] [place], [place] [address]83 Two Way Radio Technician: Apolinar Lemus MDHemoglobin (Bld) [Mass/Vol]9.3 g/dLLow11.9-15.1Bon [facility] on above:Performed By: #### BMPX, CDP #### [address] [place], [facility] Radio Technician: Apolinar Lemus MDImmature granulocytes/100 WBC (Bld)0 %Jdjpcv9Fxw [facility] on above:Performed By: #### BMPX, CDP #### [address] [place], [place] [address]383 Two Way Radio Technician: Apolinar Lemus MDLymphocytes (Bld) [#/Vol]1.02 10*3/uLLow1.10-3.70 [facility] on above:Performed By: #### BMPX, CDP #### [address] [place] [address] [address] Radio Technician: Apolinar Lemus MDLymphocytes/100 WBC (Bld)16 %Ddq39-71Lgx [facility] on above:Performed By: #### BMPX, CDP #### [address] [place], [facility] Two [address] Radio Technician: BUZZ MckenzieCH (RBC) [Entitic mass]25.7 yyOjrkci44.2-33.5Bon [facility] on above:Performed By: #### BMPX, CDP #### [address] [place] [address] [address] Radio Technician: ELLA cMkenzieC (RBC) [Mass/Vol]29.2 g/nSDkjuxq97.4-34.8Bon [facility] on above:Performed By: #### BMPX, CDP #### [address] [place] [address] [address] Radio Technician: BUZZ MckenzieCV (RBC) [Entitic vol]88.1 eBLglxlc57.6-102.9Bon [facility] on above:Performed By: #### BMPX, CDP #### [address] [place] [address] [address] Radio Technician: BUZZ Mckenzieonocytes (Bld) [#/Vol]0.58 10*3/uLNormal0.10-1.20 [facility] on above:Performed By: #### BMPX, CDP #### [address] [place], [place] [address]83 Two Way Radio Technician: BUZZ Mckenzieonocytes/100 WBC (Bld)9 %Normal3-12Bon [facility] on above:Performed By: #### BMPX, CDP #### [facility] [address] [place] [address] [address] Radio Technician: Brennen Mckenzie (Seg)66 %Gibm13-82TmbeeBluffton Hospital Comment on above:Performed By: #### BMPX, CDP #### [facility] [address] [place], [place] [address]83 Two Way Radio Technician: SVETLANA Mckenzie Automated0.0 per 100 WBCNormal0.0[facility] HospitalComment on above:Performed By: #### BMPX, CDP #### [address] [place], [place] [id number] Two Way Radio Technician: Nicanor Mkcenzie mean volume (Bld) [Entitic vol]9.2 fL Normal8.1-13.5Bon [facility] OhioComment on above:Performed By: #### BMPX, CDP #### [address] [place] [address] [address] Radio Technician: Corey Mckenzie (Bld) [#/Vol]258 10*3/fVHfprnm969-603Xwz [facility] OhioComchelsea hospital on above:Performed By: #### BMPX, CDP #### [address] [place] [address] [address] Radio Technician: GEOVANY Mckenzie (Bld) [#/Vol]3.62 10*6/uLLow3.95-5.11Bon [facility] on above:Performed By: #### BMPX, CDP #### [address] [place] [address] [address] Radio Technician: RAZA Mckenzie (Bld) [#/Vol]6.6 10*3/uLNormal3.5-11.3MercConnecticut Children's Medical CenterComchelsea hospital on above:Performed By: #### BMPX, CDP #### [address] [place] [address] [address] Radio Technician: Mihaela Mckenzie Metab w/rfx MGon 46-02-3318Rngiv gap [Moles/Vol]9 mmol/LNormal9-16MerChillicothe Hospital HospitalComment on above:Performed By: #### CMPX, CDP #### [address] [place], [place] [address]83 Two Way Radio Technician: Apolinar Lemus MDBUN/CRE Trswa58Zxraup0-35Ijlfy [facility] Comment on above:Performed By: #### CMPX, CDP #### [address] [place] [address] [address] Radio Technician: ANNITA Mckenziealcium [Mass/Vol]8.0 mg/dLLow8.6-10.4MerChillicothe Hospital HospitalComment on above:Performed By: #### CMPX, CDP #### [address] [place] [address] [address] Radio Technician: ANNITA Mckenziehloride [Moles/Vol]110 mmol/KIbms90-289Seqqp [facility] HospitalComment on above:Performed By: #### CMPX, CDP #### [address] [place] [address] [address] Radio Technician: Apolinar Lemus MDCO2 [Moles/Vol]23 mmol/HMupwmp74-95Xunjv [facility] HospitalComment on above:Performed By: #### CMPX, CDP #### [address] [place], [place] [address]83 Two Way Radio Technician: Apolinar Lemus MDCreatinine [Mass/Vol]0.6 mg/dLNormal0.50-0.90MerChillicothe Hospital HospitalComment on above:Performed By: #### CMPX, CDP #### [address] [place] [address] [address] Radio Technician: Apolinar Lemus MDGFR/1.73 sq M.predicted among non-blacks MDRD (S/P/Bld) [Vol rate/Area]mL/min/{1.73_m2}Normal>60[facility] HospitalComment on above:Result Comment: These results are not intended for use in patients <18 years of age. eGFR results are calculated without a race factor using the 2020 CKD-EPI equation. Careful clinical correlation is recommended, particularly when comparing to results calculated using previous equations. The CKD-EPI equation is less accurate in patients with extremes of muscle mass, extra-renal metabolism of creatine, excessive creatine ingestion, or following therapy that affects renal tubular secretion.Performed By: #### CMPX, CDP #### [address] [place] [address] [address] Technician: Apolinar Lemus MDGlucose [Mass/Vol]103 mg/uGHqyt41-32Yaxje Day Kimball HospitalComment on above:Performed By: #### CMPX, CDP #### [address] [place], [facility] Radio Technician: ROJAS Mckenzieotassium [Moles/Vol]3.6 mmol/LLow3.7-5.3Mmorrow county hospitaly Day Kimball HospitalComment on above:Performed By: #### CMPX, CDP #### [address] [place], [facility] [address] Radio Technician: ADÁN Mckenzieodium [Moles/Vol]142 mmol/ZVzrnvl166-205RlkerBluffton HospitalComment on above:Performed By: #### CMPX, CDP #### [address] [place] [address] [address] Radio Technician: Apolinar Lemus MDUrea nitrogen [Mass/Vol]8 mg/dLNormal8-23[facility] HospitalComment on above:Performed By: #### CMPX, CDP #### [address] [place] [address] [address] Radio Technician: Apolinar Lemus MDDanbury Hospital Metabolic Panel w/ Reflex to MGon 08-09-2024 Anion gap [Moles/Vol]9 mmol/L9 - 16 mmol/LBon [facility] Uncovet HealthCalcium [Mass/Vol]8 mg/dLLow8.6 - 10.4 mg/dLBon [facility] Uncovet HealthChloride [Moles/Vol] 110 mmol/LHigh98 - 107 mmol/LBon [facility] Uncovet HealthCO2 [Moles/Vol]23 mmol/L20 - 31 mmol/LBon [facility] [employer] [facility] HospitalCreatinine [Mass/Vol]0.6 mg/dL0.50 - 0.90 mg/dLBon [facility] SmartStudy.comEst, Glom Filt Rate- PINFBon [facility] HospitalSolarOne Solutions [facility] Comment on above: These results are not intended for use in patients <18 years of age. eGFR results are calculated without a race factor using the 2020 CKD-EPI equation. Careful clinical correlation is recommended, particularly when comparing to results calculated using previous equations. The CKD-EPI equation is less accurate in patients with extremes of muscle mass, extra-renal metabolism of creatine, excessive creatine ingestion, or following therapy that affects renal tubular secretion. Glucose [Mass/Vol]103 mg/mIHkga50 - 99 mg/dLBon [facility] HospitalcashcloudPotassium [Moles/Vol]3.6 mmol/LLow3.7 - 5.3 mmol/LBon [facility] Un[employer] [facility]opathic HospitalSodium [Moles/Vol]142 mmol/L136 - 145 mmol/LBon [facility] mxHero Eso TechnologiesUrea nitrogen [Mass/Vol]8 mg/dL8 - 23 mg/dLBon [facility] mxHero Eso TechnologiesUrea nitrogen/Creatinine [Mass ratio]13 mg/mg9 - 20Bon [facility] OhioCBC auto differentialon [id number] (Bld) [#/Vol][facility] MIND C.T.I. LtdErythrocyte distribution width (RBC) [Ratio]20 %High11.8 - 14.4 %[facility] SmartStudy.com Hemoglobin (Bld) [Mass/Vol]9 g/dLLow11.9 - 15.1 g/dLBon [facility] Springs Hospitalcashcloud Immature granulocytes (Bld) [#/Vol][facility] CentercashcloudInterpretation and review of laboratory resultsAbnormalBon [facility] OhioLymphocytes/100 WBC (Bld)0.77 %LowBon [facility] OhioMonocytes/100 WBC (Bld)0.62 %[facility] Medical CenterNeutrophils/100 WBC (Bld)74 %High36 - 65 %[facility] Nucleated RBC/100 WBC (Bld) [Ratio]0 %0.0 per 100 WBCHealthsouth Medical Center Segmented neutrophils/100 WBC (Bld)5.1 %[facility] Medical CenterWBC other (Bld) [#/Vol]6.9[facility] MiamisburgBon [facility] OhioCBC with Diffon [id number]/100 WBC (Bld)0 %Normal0-2Bon [facility] OhioComment on above:Performed By: #### CMPX, CDP #### [address] [place] [address] [address] Radio Technician: JADEN Mckenzieosinophils (Bld) [#/Vol]0.41 10*3/uLNormal 0.00-0.44Bon [facility] on above:Performed By: #### CMPX, CDP #### [address] [place] [address] [address] Radio Technician: JADEN Mckenzieosinophils/100 WBC (Bld)6 %High1-4Bon [facility] on above:Performed By: #### CMPX, CDP #### [address] [place] [address] Two Way Radio Technician: Apolinar Lemus MDHematocrit (Bld) [Volume fraction]29.7 %Low 36.3-47.1Bon [facility] on above:Performed By: #### CMPX, CDP #### [address] [place] [address] Two Way Radio Technician: Apolinar Sturtz, MDImmature granulocytes/100 WBC (Bld)0 %Dhxuac2Owx [facility] on above:Performed By: #### CMPX, CDP #### [address] [place], [place] [address]34483 Two Way Radio Technician: Apolinar Lemus MDLymphocytes/100 WBC (Bld)11 %Uai22-38Ibl [facility] on above:Performed By: #### CMPX, CDP #### [address] [place], [place] [address] Two Way Radio Technician: BUZZ MckenzieCH (RBC) [Entitic mass]26.5 fsXucyvn24.2-33.5Bon [facility] on above:Performed By: #### CMPX, CDP #### [address] [place] [address] [address] Radio Technician: ELLA MckenzieC (RBC) [Mass/Vol]30.3 g/bBZdzpwc51.4-34.8Bon [facility] on above:Performed By: #### CMPX, CDP #### [address] [place], [place] [address]83 Two Way Radio Technician: BUZZ MckenzieCV (RBC) [Entitic vol]87.6 mFQyhxmg63.6-102.9Bon [facility] on above:Performed By: #### CMPX, CDP #### [address] [place], [place] [address] Two Way Radio Technician: BUZZ Mckenzieonocytes/100 WBC (Bld)9 %Normal3-12Bon [facility] on above:Performed By: #### CMPX, CDP #### [address] [place] [address] [address] Radio Technician: ROJAS Mckenzielatelet mean volume (Bld) [Entitic vol]9.2 fL Normal8.1-13.5Bon [facility] OhioComment on above:Performed By: #### CMPX, CDP #### [address] [place], [facility] Two [address] Radio Technician: Corey Mckenzie ([facility]) [#/Vol]252 10*3/jHZrllit292-832Kkd [facility] OhioComchelsea hospital on above:Performed By: #### CMPX, CDP #### [address] [place], [facility] Two [address] Radio Technician: GEOVANY Mckenzie ([facility]) [#/Vol]3.39 10*6/uLLow3.95-5.11Bon [facility] on above:Performed By: #### CMPX, CDP #### [address] [place], [place] [address] [address] Radio Technician: Cruz Mckenzie. Basophil<0.10Dhpydz7.00-0.20MerChillicothe Hospital HospitalComment on above:Performed By: #### CMPX, CDP #### [address] [place] [address] [address] Radio Technician: MDAbs. MagalyImm.Granulocyte<0.27Xebbpt2.00-0.30MerYale New Haven Psychiatric HospitalComment on above:Performed By: #### CMPX, CDP #### [address] [place], [facility] Two [address] Radio Technician: Cruz Mckenzie.Neutrophil (Seg)5.10 k/uLNormal1.50-8.10MerChillicothe Hospital HospitalComment on above:Performed By: #### CMPX, CDP #### [address] [place], [place] [address] Two Way Radio Technician: Apolinar Lemus MDErythrocyte distribution width (RBC) [Ratio]20.0 % High11.8-14.4[facility] HospitalComment on above:Performed By: #### CMPX, CDP #### [facility] [address] [place] [address] [place] [address] [address] Radio Technician: Apolinar Lemus MDHemoglobin (Bld) [Mass/Vol]9.0 g/dLLow11.9-15.1 [facility] HospitalComment on above:Performed By: #### CMPX, CDP #### [facility] [address] [place] [address] [place] [address] [address] Radio Technician: Apolinar Lemus MDLymphocytes (Bld) [#/Vol]0.77 10*3/uLLow1.10-3.70 [facility] HospitalComment on above:Performed By: #### CMPX, CDP #### [address] [place], [place] [address] Two Way Radio Technician: BUZZ Mckenzieonocytes (Bld) [#/Vol]0.62 10*3/uLNormal0.10-1.20 [facility] HospitalComment on above:Performed By: #### CMPX, CDP #### [address] [place] [address] [address] Radio Technician: Apolinar Lemus MDNeutrophil (Seg)74 %Ggqr05-47BqingBluffton Hospital Comment on above:Performed By: #### CMPX, CDP #### [facility] [address] [place] [address] Dr. [place], [place] [address] Two Way Radio Technician: Apolinar Lemus MDNRBC Automated0.0 per 100 WBCNormal0.0[facility] HospitalComment on above:Performed By: #### CMPX, CDP #### [address] [place], [place] [address] Two Way Radio Technician: Apolinar Lemus MDWBC (Bld) [#/Vol]6.9 10*3/uLNormal3.5-11.3MCincinnati Children's Hospital Medical CenterComment on above:Performed By: #### CMPX, CDP #### [facility] [address] [place] [address] [address] Radio Technician: Apolinar Lemus MDHepatic Function Panelon 30-33-6456Bspplyl [Mass/Vol]3.1 g/dLLow3.5 - 5.2 g/dLBon [facility] OhioAlbumin/Globulin [Mass ratio]1.3 {ratio}1.0 - 2.5Bon [facility] OhioALP [Catalytic activity/Vol]74 U/L35 - 104 U/LBon [facility] HealthALT [Catalytic activity/Vol]9 U/LLow10 - 35 U/LBon [facility] HealthAST [Catalytic activity/Vol]16 U/L10 - 35 U/LBon [facility] HealthBilirubin [Mass/Vol]mg/dL 0.00 - 1.20 mg/dLBon [facility] OhioBilirubin.direct [Mass/Vol]mg/dL0.00 - 0.30 mg/dLBon [facility] OhioBilirubin.indirect [Mass/Vol]Can not be calculated0.0 - 1.0 mg/dLBon [facility] OhioProtein [Mass/Vol]5.4 g/dLLow 6.6 - 8.7 g/dLBon [facility] OhioLiver Profileon [id number] [Mass/Vol]3.1 g/dLLow3.5-5.2Mmorrow county hospitaly [place] HospitalComment on above:Performed By: #### CMPX, CDP #### [facility] [address] [place] [address] [address] Radio Technician: Apolinar Lemus, MDAlbumin/Glob Ratio1.2Gvqkti7.0-2.5[place] HospitalComment on above:Performed By: #### CMPX, CDP #### [facility] [address] [place] [address] [address] Radio Technician: Apolinar Lemus MDAlkaline Phos74 U/IKngohk74-079Umhnn [place] HospitalComment on above:Performed By: #### CMPX, CDP #### [address] [place], [place] [id number] Two Way Radio Technician: Apolinar Lemus MDALT [Catalytic activity/Vol]9 U/VVlp10-06Qdakq [place] HospitalComment on above:Performed By: #### CMPX, CDP #### [address] [place], [place] [id number] Two Way Radio Technician: Apolinar Lemus MDAST [Catalytic activity/Vol]16 U/ISykocl84-74Wsout [place] HospitalComment on above:Performed By: #### CMPX, CDP #### [address] [place], [place] [id number] Two Way Radio Technician: Apolinar Lemus MDBilirubin [Mass/Vol]mg/dLNormal0.00-1.20[facility] HospitalComment on above:Performed By: #### CMPX, CDP #### [address] [place], [place] [id number] Two Way Radio Technician: Apolinar Lemus MDBilirubin, IndirectCan not be calculatedNormal 0.0-1.0[facility] HospitalComment on above:Performed By: #### CMPX, CDP #### [address] [place] [address] [address] Radio Technician: Shirlene Mckenzie.indirect [Mass/Vol]mg/dLNormal0.00-0.30 [facility] HospitalComment on above:Performed By: #### CMPX, CDP #### [address] [place] [address] [address] Radio Technician: Apolinar Lemus MDProtein [Mass/Vol]5.4 g/dLLow6.6-8.7[facility] HospitalComment on above:Performed By: #### CMPX, CDP #### [address] [place] [address] [address] Radio Technician: Marce Mckenzie Panel Informationon [id number] and review of laboratory resultsAbnormLifePoint HealthBasic Metab w/rfx MGon 85-70-2546Pnoil gap [Moles/Vol]8 mmol/LLow 9-16[facility] HospitalComment on above:Performed By: #### CMPX, CDP #### [address] [place], [place] [address]30783 Two Way Radio Technician: Apolinar Lemus MDBUN/CRE Orwzu83Bzkstl8-51Wyvpp [facility] Comment on above:Performed By: #### CMPX, CDP #### [address] [place] [address] [address] Radio Technician: ANNITA Mckenziealcium [Mass/Vol]7.8 mg/dLLow8.6-10.4[place] HospitalComment on above:Performed By: #### CMPX, CDP #### [address] [place] [address] [address] Radio Technician: ANNITA Mckenziehloride [Moles/Vol]109 mmol/LItod67-752Owjrx [facility] HospitalComment on above:Performed By: #### CMPX, CDP #### [address] [place] [address] [address] Radio Technician: Apolinar Lemus MDCO2 [Moles/Vol]25 mmol/DBljqco06-68Vlwky [place] HospitalComment on above:Performed By: #### CMPX, CDP #### [address] [place], [place] [id number] Two Way Radio Technician: Apolinar Lemus MDCreatinine [Mass/Vol]0.8 mg/dLNormal0.50-0.90[facility] HospitalComment on above:Performed By: #### CMPX, CDP #### [address] [place] [address] [address] Radio Technician: Apolinar Lemus MDGFR/1.73 sq M.predicted among non-blacks MDRD (S/P/Bld) [Vol rate/Area]86 mL/min/{1.73_m2}Normal>60[facility] Comment on above:Result Comment: These results are not intended for use in patients <18 years of age. eGFR results are calculated without a race factor using the 2020 CKD-EPI equation. Careful clinical correlation is recommended, particularly when comparing to results calculated using previous equations. The CKD-EPI equation is less accurate in patients with extremes of muscle mass, extra-renal metabolism of creatine, excessive creatine ingestion, or following therapy that affects renal tubular secretion.Performed By: #### CMPX, CDP #### [address] [place], [facility] Two Way Radio Technician: Apolinar Lemus MDGlucose [Mass/Vol]131 mg/rSBlft63-17ZqidcCincinnati Children's Hospital Medical CenterComment on above:Performed By: #### CMPX, CDP #### [address] [place], [facility] Two Way Radio Technician: ROJAS Mckenzieotassium [Moles/Vol]3.6 mmol/LLow3.7-5.3MCincinnati Children's Hospital Medical CenterComment on above:Performed By: #### CMPX, CDP #### [address] [place] [address] [address] Radio Technician: Apolinar Lemus MDSodium [Moles/Vol]142 mmol/XTwqmyi793-155SfssiBluffton HospitalComment on above:Performed By: #### CMPX, CDP #### [address] [place] [address] [address] Radio Technician: Apolinar Lemus MDUrea nitrogen [Mass/Vol]11 mg/dLNormal8-23[place] HospitalComment on above:Performed By: #### CMPX, CDP #### [facility] [address] [place] [address] [address] Radio Technician: Shante Mckenziealan Metabolic Panel w/ Reflex to MGon 08-08-2024 Anion gap [Moles/Vol]8 mmol/LLow9 - 16 mmol/LBon SecDiley Ridge Medical CenterCalcium [Mass/Vol]7.8 mg/dLLow8.6 - 10.4 mg/dLBon [facility] OhioChloride [Moles/Vol]109 mmol/LHigh98 - 107 mmol/LBon [facility] OhioCO2 [Moles/Vol] 25 mmol/L20 - 31 mmol/LBon [facility] OhioCreatinine [Mass/Vol]0.8 mg/dL 0.50 - 0.90 mg/dLBon [facility] OhioEst, Glom Filt Rate86- PINFBon [facility] OhioComment on above: These results are not intended for use in patients <18 years of age. eGFR results are calculated without a race factor using the 2020 CKD-EPI equation. Careful clinical correlation is recommended, particularly when comparing to results calculated using previous equations. The CKD-EPI equation is less accurate in patients with extremes of muscle mass, extra-renal metabolism of creatine, excessive creatine ingestion, or following therapy that affects renal tubular secretion. Glucose [Mass/Vol]131 mg/rJNiwf16 - 99 mg/dLBon [facility] [place] Interpretation and review of laboratory resultsAbnormalBon [facility] Potassium [Moles/Vol]3.6 mmol/LLow3.7 - 5.3 mmol/LBon [facility] OhioSodium [Moles/Vol]142 mmol/L136 - 145 mmol/LBon [facility] OhioUrea nitrogen [Mass/Vol]11 mg/dL8 - 23 mg/dLBon [facility] OhioUrea nitrogen/Creatinine [Mass ratio]14 mg/mg9 - 20Bon [facility] CenterCBC auto differentialon [id number] (Bld) [#/Vol]0.05 10*3/uLBon [facility] OhioBasophils/100 WBC (Bld)1 %0 - 2 %Bon [facility] OhioEosinophils (Bld) [#/Vol]0.33 10*3/uLBon [facility]y HealthEosinophils/100 WBC (Bld)4 %1 - 4 %[facility] HealthErythrocyte distribution width (RBC) [Ratio]19.9 % High11.8 - 14.4 %[facility] HealthHematocrit (Bld) [Volume fraction]31.2 %Low36.3 - 47.1 %[facility] HealthHemoglobin (Bld) [Mass/Vol]9.5 g/dLLow 11.9 - 15.1 g/dLBon [facility]ours [facility] Health MiamisburgImmature granulocytes (Bld) [#/Vol]0.05 10*3/uLBon [facility]ours [facility] HealthImmature granulocytes/100 WBC (Bld)1 %Avhu5Iyj [facility]y HealthInterpretation and review of laboratory resultsAbnormalBon [facility] Hospitaly HealthLymphocytes/100 WBC (Bld)9 %Low24 - 43 %[facility] HealthLymphocytes/100 WBC (Bld)0.74 %LowBon Secours [facility] Campus Medical CenterH (RBC) [Entitic mass]26.2 pg25.2 - 33.5 pgBon [facility]ours [facility] Medical CenterHC (RBC) [Mass/Vol] 30.4 g/dL28.4 - 34.8 g/dLBon [facility]ours [facility] Medical CenterV (RBC) [Entitic vol]86.2 fL 82.6 - 102.9 fLBon [facility]ours [facility]edo Hospitaly HealthMonocytes/100 WBC (Bld)9 %3 - 12 %[facility]y HealthMonocytes/100 WBC (Bld)0.75 %[facility] Health Neutrophils/100 WBC (Bld)76 %High36 - 65 %[facility]y HealthNucleated RBC/100 WBC (Bld) [Ratio]0 %0.0 per 100 WBCBon Secours Toledo Hospitaly HealthPlatelet mean volume (Bld) [Entitic vol]8.8 fL8.1 - 13.5 fLBon [facility]ours [facility]edo Hospitaly HealthPlatelets (Bld) [#/Vol]277 10*3/uLBon [facility] Hospitaly HealthRBC (Bld) [#/Vol]3.62 10*6/uLLow 3.95 - 5.11 m/uLBon [facility] OhioSegmented neutrophils/100 WBC (Bld)6.48 %Bon [facility] OhioWBC other (Bld) [#/Vol]8.4Bon [facility] OhioBon [facility] OhioCB with Diffon [id number]. Basophil0.05 k/uLNormal 0.00-0.20[facility] [place] HospitalComment on above:Performed By: #### CMPX, CDP #### [address] [place], [place] [id number] Two Way Radio Technician: MDAbs. MagalyImm.Granulocyte0.05 k/uLNormal0.00-0.30[facility] [place] HospitalComment on above:Performed By: #### CMPX, CDP #### [address] [place], [facility] Two Way Radio Technician: Cruz Mckenzie.Neutrophil (Seg)6.48 k/uLNormal1.50-8.10[facility] [place] HospitalComment on above:Performed By: #### CMPX, CDP #### [address] [place], [place] 9559183 Two Way Radio Technician: Apolinar Lemus MDBasophils/100 WBC (Bld)1 %Normal0-2[facility] [place] HospitalComment on above:Performed By: #### CMPX, CDP #### [address] [place] [address] [address] Radio Technician: Apolinar Lemus MDEosinophils (Bld) [#/Vol]0.33 10*3/uLNormal 0.00-0.44[facility] [place] HospitalComment on above:Performed By: #### CMPX, CDP #### [address] [place], [place] [address]11[address]83 Two Way Radio Technician: JADEN Mckenzieosinophils/100 WBC (Bld)4 %Normal1-4[facility] [place] HospitalComment on above:Performed By: #### CMPX, CDP #### [address] [place] [address] [address] Radio Technician: Apolinar Lemus MDErythrocyte distribution width (RBC) [Ratio]19.9 % High11.8-14.4[facility] HospitalComment on above:Performed By: #### CMPX, CDP #### [address] [place] [id number] Two Way Radio Technician: Apolinar Lemus MDHematocrit (Bld) [Volume fraction]31.2 %Low 36.3-47.1[facility] HospitalComment on above:Performed By: #### CMPX, CDP #### [address] [place] [id number] Two Way Radio Technician: Apolinar Lemus MDHemoglobin (Bld) [Mass/Vol]9.5 g/dLLow11.9-15.1 [facility] HospitalComment on above:Performed By: #### CMPX, CDP #### [address] [place] [id number] Two Way Radio Technician: Apolinar Lemus MDImmature granulocytes/100 WBC (Bld)1 %Jwat7ZxzvgBarney Children'S Medical Center HospitalComment on above:Performed By: #### CMPX, CDP #### [address] [place], [facility] Two Way Radio Technician: Apolinar Lemus MDLymphocytes (Bld) [#/Vol]0.74 10*3/uLLow1.10-3.70 [facility] HospitalComment on above:Performed By: #### CMPX, CDP #### [address] [place], [place] [address]854283 Two Way Radio Technician: Eden Mckenziemphocytes/100 WBC (Bld)9 %Gtm92-52HvskbBluffton HospitalComment on above:Performed By: #### CMPX, CDP #### [address] [place] [address] [address] Radio Technician: BUZZ MckenzieCH (RBC) [Entitic mass]26.2 dgKlxvrx21.2-33.5 [place] HospitalComment on above:Performed By: #### CMPX, CDP #### [address] [place] [address] [address] Radio Technician: BUZZ MckenzieCHC (RBC) [Mass/Vol]30.4 g/cPYozpip87.4-34.8[place] HospitalComment on above:Performed By: #### CMPX, CDP #### [address] [place] [address] [address] Radio Technician: BUZZ MckenzieCV (RBC) [Entitic vol]86.2 jAFvvezr37.6-102.9 [place] HospitalComment on above:Performed By: #### CMPX, CDP #### [address] [place] [address] [address] Radio Technician: BUZZ Mckenzieonocytes (Bld) [#/Vol]0.75 10*3/uLNormal0.10-1.20 [place] HospitalComment on above:Performed By: #### CMPX, CDP #### [address] [place] [address] [address] Radio Technician: BUZZ Mckenzieonocytes/100 WBC (Bld)9 %Normal3-12[place] HospitalComment on above:Performed By: #### CMPX, CDP #### [address] [place], [place] [address] Two Way Radio Technician: Apolinar Lemus MDNeutrophil (Seg)76 %Dbod86-65NngfeBluffton Hospital Comment on above:Performed By: #### CMPX, CDP #### [address] [place] [address] [address] Radio Technician: SVETLANA Mckenzie Automated0.0 per 100 WBCNormal0.0[place] HospitalComment on above:Performed By: #### CMPX, CDP #### [address] [place] [address] [address] Radio Technician: Nicanor Mckenzie mean volume (Bld) [Entitic vol]8.8 fL Normal8.1-13.5[place] HospitalComment on above:Performed By: #### CMPX, CDP #### [address] [place] [address] [address] Radio Technician: Corey Mckenzie (Bld) [#/Vol]277 10*3/pERvckmw886-986 [place] HospitalComment on above:Performed By: #### CMPX, CDP #### [address] [place] [address] [address] Radio Technician: GEOVANY Mckenzie (Bld) [#/Vol]3.62 10*6/uLLow3.95-5.11[place] HospitalComment on above:Performed By: #### CMPX, CDP #### [address] [place] [address] [address] Radio Technician: RAZA Mckenzie (Bld) [#/Vol]8.4 10*3/uLNormal3.5-11.3MCincinnati Children's Hospital Medical CenterComment on above:Performed By: #### CMPX, CDP #### [address] [place], [place] [address]23483 Two Way Radio Technician: Lavon Mckenziec Metab w/rfx MGon 30-19-3705Mleqn gap [Moles/Vol]10 mmol/LNormal9-16[place] HospitalComment on above:Performed By: #### BMPX, CDP #### [facility] [address] [place] [address] [place] [address] [address] Radio Technician: Apolinar Lemus MDBUN/CRE Admhh15Jghwdz0-59Kmnrx [facility] Comment on above:Performed By: #### BMPX, CDP #### [address] [place] [address] [address] Radio Technician: ANNITA Mckenziealcium [Mass/Vol]7.5 mg/dLLow8.6-10.4[place] HospitalComment on above:Performed By: #### BMPX, CDP #### [address] [place] [address] [address] Radio Technician: ANNITA Mckenziehloride [Moles/Vol]106 mmol/LRlkjtu48-783LvonyBluffton HospitalComment on above:Performed By: #### BMPX, CDP #### [address] [place] [address] [address] Radio Technician: Apolinar Lemus MDCO2 [Moles/Vol]22 mmol/PShtfvx23-52ZjzjlBluffton HospitalComment on above:Performed By: #### BMPX, CDP #### [address] [place] [address] [address] Radio Technician: ANNITA Mckenziereatinine [Mass/Vol]0.8 mg/dLNormal0.50-0.90[place] HospitalComment on above:Performed By: #### BMPX, CDP #### [address] [place], [place] [id number] Two Way Radio Technician: Apolinar Lemus MDGFR/1.73 sq M.predicted among non-blacks MDRD (S/P/Bld) [Vol rate/Area]85 mL/min/{1.73_m2}Normal>60[facility] Comment on above:Result Comment: These results are not intended for use in patients <18 years of age. eGFR results are calculated without a race factor using the 2020 CKD-EPI equation. Careful clinical correlation is recommended, particularly when comparing to results calculated using previous equations. The CKD-EPI equation is less accurate in patients with extremes of muscle mass, extra-renal metabolism of creatine, excessive creatine ingestion, or following therapy that affects renal tubular secretion.Performed By: #### BMPX, CDP #### [address] [place] [address] [address] Radio Technician: Apolinar Lemus MDGlucose [Mass/Vol]124 mg/eINcyj03-65ZsokfCincinnati Children's Hospital Medical CenterComment on above:Performed By: #### KYLEX, CDP #### [address] [place] [address] [address] Radio Technician: ROJAS Mckenzieotassium [Moles/Vol]3.7 mmol/LNormal3.7-5.3Mmorrow county hospitaly [place] HospitalComment on above:Result Comment: Specimen hemolysis has exceeded the interference as defined by Anthony. Value may be falsely increased. Suggest recollection if clinically indicated.Performed By: #### KYLEX, CDP #### [address] [place] [address] [address] Radio Technician: ADÁN Mckenzieodium [Moles/Vol]138 mmol/IPbdnkv333-035ClntmBluffton HospitalComment on above:Performed By: #### KYLEX, CDP #### [address] [place], [place] 268[address]83 Two Way Radio Technician: Apolinar Lemus MDUrea nitrogen [Mass/Vol]14 mg/dLNormal8-23[place] HospitalComment on above:Performed By: #### KYLEX, CDP #### [address] [place] [address] [address] Radio Technician: Apolinar Lemus MDBasi Metabolic Panel w/ Reflex to MGon 08-07-2024 Anion gap [Moles/Vol]10 mmol/L9 - 16 mmol/LBon [facility] HealthCalcium [Mass/Vol]7.5 mg/dLLow8.6 - 10.4 mg/dLBon [facility] OhioChloride [Moles/Vol]106 mmol/L98 - 107 mmol/LBon [facility] OhioCO2 [Moles/Vol]22 mmol/L20 - 31 mmol/LBon [facility] OhioCreatinine [Mass/Vol]0.8 mg/dL0.50 - 0.90 mg/dLBon [facility] OhioEst, Glom Filt Rate85- PINFBon [facility] OhioComment on above: These results are not intended for use in patients <18 years of age. eGFR results are calculated without a race factor using the 2020 CKD-EPI equation. Careful clinical correlation is recommended, particularly when comparing to results calculated using previous equations. The CKD-EPI equation is less accurate in patients with extremes of muscle mass, extra-renal metabolism of creatine, excessive creatine ingestion, or following therapy that affects renal tubular secretion. Glucose [Mass/Vol]124 mg/rIYbtw88 - 99 mg/dLBon [facility] [place] Interpretation and review of laboratory resultsAbnormalBon [facility] Potassium [Moles/Vol]3.7 mmol/L3.7 - 5.3 mmol/LBon [facility] Hospitalment on above:Specimen hemolysis has exceeded the interference as defined by Anthony. Value may be falsely increased. Suggest recollection if clinically indicated. Sodium [Moles/Vol]138 mmol/L136 - 145 mmol/LBon [facility] OhioUrea nitrogen [Mass/Vol]14 mg/dL8 - 23 mg/dLBon [facility] OhioUrea nitrogen/Creatinine [Mass ratio]18 mg/mg9 - 20Bon [facility] Medical CenterBon SecDiley Ridge Medical CenterCBC auto differentialon [id number] (Bld) [#/Vol] 0.07 10*3/uLBon [facility] OhioBasophils/100 WBC (Bld)1 %0 - 2 %Bon [facility] OhioEosinophils (Bld) [#/Vol]0.28 10*3/uLBon [facility] [place] Eosinophils/100 WBC (Bld)4 %1 - 4 %Bon [facility] OhioErythrocyte distribution width (RBC) [Ratio]19.8 %High11.8 - 14.4 %[facility] Hematocrit (Bld) [Volume fraction]32.5 %Low36.3 - 47.1 %[facility] Hemoglobin (Bld) [Mass/Vol]10 g/dLLow11.9 - 15.1 g/dLBon [facility] [place] Immature granulocytes (Bld) [#/Vol]0.03 10*3/uLBon [facility] OhioImmature granulocytes/100 WBC (Bld)0 %0[facility] Medical CenterInterpretation and review of laboratory resultsAbnormalHealthsouth Medical CenterLymphocytes/100 WBC (Bld)13 %Low24 - 43 %[facility] Medical CenterLymphocytes/100 WBC (Bld)0.93 %LowCumberland HospitalH (RBC) [Entitic mass]26.5 pg25.2 - 33.5 pgCumberland HospitalHC (RBC) [Mass/Vol]30.8 g/dL28.4 - 34.8 g/dLBon [facility] OhioMCV (RBC) [Entitic vol]86 fL82.6 - 102.9 fLHealthsouth Medical Center Monocytes/100 WBC (Bld)9 %3 - 12 %[facility] Medical CenterMonocytes/100 WBC (Bld)0.64 %[facility] Medical CenterNeutrophils/100 WBC (Bld)72 %High36 - 65 %[facility] Medical CenterNucleated RBC/100 WBC (Bld) [Ratio]0.3 %High0.0 per 100 WBC [facility] Medical CenterPlatelet mean volume (Bld) [Entitic vol]9.1 fL8.1 - 13.5 fLHealthsouth Medical CenterPlatelets (Bld) [#/Vol]283 10*3/uLBon [facility] OhioRBC (Bld) [#/Vol]3.78 10*6/uLLow3.95 - 5.11 m/uLBon [facility] [place] Segmented neutrophils/100 WBC (Bld)5.07 %[facility] Medical CenterWBC other (Bld) [#/Vol]7[facility] HealthBon [facility] with Diffon [id number]. Basophil0.07 k/uLNormal0.00-0.20MerChillicothe Hospital HospitalComment on above:Performed By: #### BMPX, CDP #### [address] [place] [address] [address] Radio Technician: Cruz Mckenzie.Imm.Granulocyte0.03 k/uLNormal0.00-0.30MerChillicothe Hospital HospitalComment on above:Performed By: #### BMPX, CDP #### [address] [place] [address] [address] Radio Technician: Cruz Mckenzie.Neutrophil (Seg)5.07 k/uLNormal1.50-8.10MerChillicothe Hospital HospitalComment on above:Performed By: #### BMPX, CDP #### [address] [place], [place] [address] [address] Radio Technician: Apolinar Lemus MDBasophils/100 WBC (Bld)1 %Normal0-2[facility] HospitalComment on above:Performed By: #### BMPX, CDP #### [address] [place], [place] [address] [address] Radio Technician: Apolinar Lemus MDEosinophils (Bld) [#/Vol]0.28 10*3/uLNormal 0.00-0.44[facility] HospitalComment on above:Performed By: #### BMPX, CDP #### [address] [place], [place] [address] [address] Radio Technician: JADEN Mckenzieosinophils/100 WBC (Bld)4 %Normal1-4MerChillicothe Hospital HospitalComment on above:Performed By: #### BMPX, CDP #### [address] [place], [facility] Two [address] Radio Technician: Hattie Mckenziemature granulocytes/100 WBC (Bld)0 %Nsfgys7SbfsxBluffton HospitalComment on above:Performed By: #### BMPX, CDP #### [facility] [address] [place] [address] Dr. [place], [place] [id number] Two Way Radio Technician: Apolinar Lemus MDLymphocytes (Bld) [#/Vol]0.93 10*3/uLLow1.10-3.70 [facility] HospitalComment on above:Performed By: #### BMPX, CDP #### [address] [place], [place] [address] Two Way Radio Technician: Apolinar Lemus MDLymphocytes/100 WBC (Bld)13 %Dnh90-34NzbnaBluffton HospitalComment on above:Performed By: #### BMPX, CDP #### [address] [place], [place] 112[address]83 Two Way Radio Technician: BUZZ Mckenzieonocytes (Bld) [#/Vol]0.64 10*3/uLNormal0.10-1.20 [facility] HospitalComment on above:Performed By: #### BMPX, CDP #### [address] [place], [place] [address] Two Way Radio Technician: BUZZ Mckenzieonocytes/100 WBC (Bld)9 %Normal3-12[facility] HospitalComment on above:Performed By: #### BMPX, CDP #### [address] [place], [place] [address]83 Two Way Radio Technician: Apolinar Lemus MDNeutrophil (Seg)72 %Sbjy24-39GtglaBluffton Hospital Comment on above:Performed By: #### BMPX, CDP #### [address] [place], [place] [id number] Two Way Radio Technician: Apolinar Lemus MDErythrocyte distribution width (RBC) [Ratio]19.8 % High11.8-14.4[facility] HospitalComment on above:Performed By: #### BMPX, CDP #### [address] [place] [address] [address] Radio Technician: Apolinar Lemus MDHematocrit (Bld) [Volume fraction]32.5 %Low 36.3-47.1MUniversity Hospitals Beachwood Medical Center HospitalComment on above:Performed By: #### BMPX, CDP #### [address] [place] [address] [address] Radio Technician: Apolinar Lemus MDHemoglobin (Bld) [Mass/Vol]10.0 g/dLLow11.9-15.1 [facility] HospitalComment on above:Performed By: #### BMPX, CDP #### [address] [place], [facility] Two Way Radio Technician: BUZZ MckenzieCH (RBC) [Entitic mass]26.5 ecSbpxjy30.2-33.5 [facility] HospitalComment on above:Performed By: #### BMPX, CDP #### [address] [place] [address] [address] Radio Technician: ELLA MckenzieC (RBC) [Mass/Vol]30.8 g/fNOnrewm50.4-34.8[facility] HospitalComment on above:Performed By: #### BMPX, CDP #### [address] [place] [address] Two Way Radio Technician: BUZZ MckenzieCV (RBC) [Entitic vol]86.0 eGBxnnxw11.6-102.9 [facility] HospitalComment on above:Performed By: #### BMPX, CDP #### [address] [place] [address] [address] Radio Technician: ANGEL MckenzieBC Automated0.3 per 100 WBCHigh0.0[facility] HospitalComment on above:Performed By: #### BMPX, CDP #### [facility] [address] [place] [address] [place] [address] [address] Radio Technician: Nicanor Mckenzie mean volume (Bld) [Entitic vol]9.1 fL Normal8.1-13.5[facility] HospitalComment on above:Performed By: #### BMPX, CDP #### [address] [place] [address] [address] Radio Technician: Corey Mckenzie (Bld) [#/Vol]283 10*3/xJGqtfks401-456 [facility] HospitalComment on above:Performed By: #### BMPX, CDP #### [address] [place] [address] [address] Radio Technician: GEOVANY Mckenzie (Bld) [#/Vol]3.78 10*6/uLLow3.95-5.11[facility] HospitalComment on above:Performed By: #### BMPX, CDP #### [address] [place] [address] [address] Radio Technician: RAZA Mckenzie (Bld) [#/Vol]7.0 10*3/uLNormal3.5-11.3MUniversity Hospitals Beachwood [facility] Center HospitalComment on above:Performed By: #### BMPX, CDP #### [address] [place] [address] [address] Radio Technician: LEANDRO Mckenzie 12 Lead [id number] Cgao36EMIYla [facility] HealthP Lojz97oqdakojOic [facility] HealthP-R Jzsfkwte903 msBon [facility] HealthQ-T Izrmkdkg956 msBon [facility] HealthQRS Wyfvmcto60 ms [facility] HealthQTc Calculation (Ara)402 msBon [facility] HealthR [place]-17degreesRiverside Regional Medical CenterVDP [facility]burgT Tgat21woqzmzgFxhHealthsouth Medical Center Ventricular Eksp57XEXCjk [facility] [place] Consider ACUTE CORONARY SYNDROME (ACS) Sinus bradycardia Possible Left atrial enlargement Nonspecific ST abnormality ECG interpretation of ACS is based on presence of symptoms and T-wave inversion in Septal leads Abnormal ECG When compared with ECG of 02-Jan-2024 16:02, T wave inversion no longer evident in Inferior leads T wave inversion less evident in Anterior leads Confirmed by Josef Brooks ([id number]) on 08/07/2024 8:24:00 AMSouth Georgia Medical CenterJosef venegas MD - 08/07/2024 Consider ACUTE CORONARY SYNDROME (ACS) Sinus bradycardia Possible Left atrial enlargement Nonspecific ST abnormality ECG interpretation of ACS is based on presence of symptoms and T-wave inversion in Septal leads Abnormal ECG When compared with ECG of 02-Jan-2024 16:02, T wave inversion no longer evident in Inferior leads T wave inversion less evident in Anterior leads Confirmed by Josef Brooks ([id number]) on 08/07/2024 8:24:00 AM [facility] CentercashcloudRiverside Regional Medical CentercashcloudVascular duplex lower extremity arteries bilateralOrdered By: Timothy John on [id number] surface area Derived from formula1.56 m2[facility] [employer] Work Phone: Left BROCK mid PSV24.8 cm/sBon 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 Work Phone: Left peroneal mid PSV16 cm/sBon [employer] Work Phone: Left PFA prox PSV31.6 cm/sBon [employer] Work Phone: Left VAMP LINER mid PSV28.1 cm/sBon [employer] Work Phone: Left SFA dist PSV48.2 cm/[employer] Work Phone: Right BROCK mid PSV29.7 cm/sBon [facility] [email or web address] Work Phone: [phone] BUSINESS INTELLIGENCE ETL DEVELOPER dist PSV79.8 cm/sBon [facility] [email or web address] Work Phone: [phone] BUSINESS INTELLIGENCE ETL DEVELOPER prox PSV40.3 cm/sBon [facility] Work Phone: [phone] peronal mid PSV19.9 cm/sBon [facility] [email or web address] Work Phone: [phone] Pop A dist PSV39.6 cm/sBon [facility] [email or web address] Work Phone: [phone] Pop A prox PSV24.8 cm/sBon [facility] [email or web address] Work Phone: Right Pop A prox otilio ratio0.85Bon [employer] Work Phone: Right VAMP LINER mid PSV24.8 cm/sBon [facility] [employer] Work Phone: Right SFA dist PSV29.2 cm/sBon [facility] [employer] Work Phone: Right SFA dist otilio ratio0.93Bon [employer] Work Phone: Right SFA mid PSV31.4 cm/sBon [facility] [employer] Work Phone: Bon [employer] Work Phone: Vascular duplex lower extremity arteries bilateralon [id number] right superficial femoral artery is occluded with distal reconstitution of the midportion of the superficial femoral artery and monophasic flow throughout. The left superficial femoral and popliteal arteries are occluded as is the femoral-popliteal bypass graft. Tibial arterial flow reconstitutes via collaterals. Right Lower Arterial Distal Common Femoral Artery: Multiphasic (normal) Doppler waveforms. Profunda Artery: Biphasic Doppler waveforms. Proximal Superficial Femoral Artery: Occluded. Middle Superficial Femoral Artery: Monophasic Doppler waveforms. Distal Superficial Femoral Artery: Monophasic Doppler waveforms. Proximal Popliteal Artery: Monophasic Doppler waveforms. Distal Popliteal Artery: Monophasic Doppler waveforms. Middle Anterior Tibial Artery: Monophasic Doppler waveforms. Middle Posterior Tibial Artery: Monophasic Doppler waveforms Middle Peroneal Artery: Monophasic Doppler waveforms. Occlusion of the proximal femoral artery with reconstitution of flow noted in the mid segment of the femoral artery. Left Lower Arterial Distal Common Femoral Artery: Biphasic Doppler waveforms. Profunda Artery: Monophasic Doppler waveforms. . Superficial Femoral Artery: Occluded. Popliteal Artery: Occluded. Middle Anterior Tibial Artery: Monophasic Doppler waveforms. Middle Posterior Tibial Artery: Monophasic Doppler waveforms. Middle Peroneal Artery: Monophasic Doppler waveforms. Patient has an occluded bypass graft visualized in the groin to distal popliteal artery however it is difficult to visualize the proximal and distal anastomosis.[facility] CV CPACSRadiology Study observation (narrative)Healthsouth Medical CenterCBC auto differentialon [id number] (Bld) [#/Vol]0.08 10*3/uLBon [facility] OhioBasophils/100 WBC (Bld)1 %0 - 2 %[facility] Medical CenterEosinophils (Bld) [#/Vol]0.39 10*3/uLBon [facility] [place] Eosinophils/100 WBC (Bld)5 %High1 - 4 %[facility] Medical CenterErythrocyte distribution width (RBC) [Ratio]19.4 %High11.8 - 14.4 %[facility] Hematocrit (Bld) [Volume fraction]32.9 %Low36.3 - 47.1 %[facility] Hemoglobin (Bld) [Mass/Vol]10.3 g/dLLow11.9 - 15.1 g/dLBon [facility] [place] Immature granulocytes (Bld) [#/Vol]0.04 10*3/uLBon [facility] OhioImmature granulocytes/100 WBC (Bld)1 %Swyt1SiiHealthsouth Medical CenterInterpretation and review of laboratory resultsAbnormalHealthsouth Medical CenterLymphocytes/100 WBC (Bld)12 %Low24 - 43 %[facility] Medical CenterLymphocytes/100 WBC (Bld)0.94 %Low [facility] HospitalH (RBC) [Entitic mass]26.6 pg25.2 - 33.5 pgCumberland HospitalHC (RBC) [Mass/Vol]31.3 g/dL28.4 - 34.8 g/dLBon [facility] OhioMCV (RBC) [Entitic vol]85 fL82.6 - 102.9 fLHealthsouth Medical Center Monocytes/100 WBC (Bld)11 %3 - 12 %[facility] Medical CenterMonocytes/100 WBC (Bld)0.83 %[facility] Medical CenterNeutrophils/100 WBC (Bld)70 %High36 - 65 %[facility] Medical CenterNucleated RBC/100 WBC (Bld) [Ratio]0.3 %High0.0 per 100 WBC [facility] Medical CenterPlatelet mean volume (Bld) [Entitic vol]9.2 fL8.1 - 13.5 fLHealthsouth Medical CenterPlatelets (Bld) [#/Vol]296 10*3/uLBon [facility] OhioRBC (Bld) [#/Vol]3.87 10*6/uLLow3.95 - 5.11 m/uLHealthsouth Medical Center Segmented neutrophils/100 WBC (Bld)5.66 %[facility] Medical CenterWBC other (Bld) [#/Vol]7.9Bon [facility] CenterCBC with Diffon [id number]. Basophil0.08 k/uLNormal0.00-0.20MerCh[facility]icothe Hospital HospitalComment on above:Performed By: #### CMPX, CDP #### [address] [place] [address] [address] Radio Technician: Cruz Mckenzie.Imm.Granulocyte0.04 k/uLNormal0.00-0.30[place] HospitalComment on above:Performed By: #### CMPX, CDP #### [address] [place] [id number] Two Way Radio Technician: Cruz Mckenzie.Neutrophil (Seg)5.66 k/uLNormal1.50-8.10[place] HospitalComment on above:Performed By: #### CMPX, CDP #### [address] [place] [address] [address] Radio Technician: Apolinar Lemus MDBasophils/100 WBC (Bld)1 %Normal0-2[facility] HospitalComment on above:Performed By: #### CMPX, CDP #### [address] [place] [address] [address] Radio Technician: Apolinar Lemus MDEosinophils (Bld) [#/Vol]0.39 10*3/uLNormal 0.00-0.44[facility] HospitalComment on above:Performed By: #### CMPX, CDP #### [address] [place] [address] [address] Radio Technician: Apolinar Lemus MDEosinophils/100 WBC (Bld)5 %High1-4MerChillicothe Hospital HospitalComment on above:Performed By: #### CMPX, CDP #### [address] [place], [place] [address] [address] Radio Technician: Apolinar Lemus MDErythrocyte distribution width (RBC) [Ratio]19.4 % High11.8-14.4[facility] HospitalComment on above:Performed By: #### CMPX, CDP #### [address] [place] [address] [address] Radio Technician: Apolinar Lemus MDHematocrit (Bld) [Volume fraction]32.9 %Low 36.3-47.1MercMercy Health St[facility] HospitalComment on above:Performed By: #### CMPX, CDP #### [address] [place] [id number] Two Way Radio Technician: Apolinar Lemus MDHemoglobin (Bld) [Mass/Vol]10.3 g/dLLow11.9-15.1 [facility] HospitalComment on above:Performed By: #### CMPX, CDP #### [address] [place] [address] [address] Radio Technician: Apolinar Lemus MDImmature granulocytes/100 WBC (Bld)1 %Gspg9OonbxBarney [facility]'S Medical Center HospitalComment on above:Performed By: #### CMPX, CDP #### [address] [place] [address] [address] Radio Technician: Apolinar Lemus MDLymphocytes (Bld) [#/Vol]0.94 10*3/uLLow1.10-3.70 [facility] HospitalComment on above:Performed By: #### CMPX, CDP #### [address] [place] [address] [address] Radio Technician: Edne Mckenziemphocytes/100 WBC (Bld)12 %Lbf61-75Gynyd [facility] HospitalComment on above:Performed By: #### CMPX, CDP #### [address] [place] [address] [address] Radio Technician: BUZZ MckenzieCH (RBC) [Entitic mass]26.6 bkIelqel10.2-33.5 [facility] HospitalComment on above:Performed By: #### CMPX, CDP #### [address] [place] [address] [address] Radio Technician: ELLA MckenzieC (RBC) [Mass/Vol]31.3 g/gPKmziwl51.4-34.8[facility] HospitalComment on above:Performed By: #### CMPX, CDP #### [address] [place] [address] [address] Radio Technician: BUZZ MckenzieCV (RBC) [Entitic vol]85.0 aRIavftw30.6-102.9 [facility] HospitalComment on above:Performed By: #### CMPX, CDP #### [address] [place] [address] [address] Radio Technician: BUZZ Mckenzieonocytes (Bld) [#/Vol]0.83 10*3/uLNormal0.10-1.20 [place] HospitalComment on above:Performed By: #### CMPX, CDP #### [facility] [address] [place] [address] Dr. [place], [place] [id number] Two Way Radio Technician: BUZZ Mckenzieonocytes/100 WBC (Bld)11 %Normal3-12[place] HospitalComment on above:Performed By: #### CMPX, CDP #### [facility] [address] [place] [address] [place] [address] [address] Radio Technician: Yina Mckenzieophil (Seg)70 %Nfcv09-53ErvxjBluffton Hospital Comment on above:Performed By: #### CMPX, CDP #### [address] [place], [place] [id number] Two Way Radio Technician: Apolinar Lemus MDNRBC Automated0.3 per 100 WBCHigh0.0[place] HospitalComment on above:Performed By: #### CMPX, CDP #### [address] [place], [place] [id number] ([address] Radio Technician: ROJAS Mckenzielatelet mean volume (Bld) [Entitic vol]9.2 fL Normal8.1-13.5[place] HospitalComment on above:Performed By: #### CMPX, CDP #### [facility] [address] [place] [address] [place] [address] [address] Radio Technician: Apolinar Lemus MDPlatelets (Bld) [#/Vol]296 10*3/tIGebrjf291-372 [place] HospitalComment on above:Performed By: #### CMPX, CDP #### [address] [place], [place] [id number] Two Way Radio Technician: Apolinar Lemus MDRBC (Bld) [#/Vol]3.87 10*6/uLLow3.95-5.11[facility] HospitalComment on above:Performed By: #### CMPX, CDP #### [facility] [address] [place], [place] [id number] Two Way Radio Technician: RAZA Mckenzie (d) [#/Vol]7.9 10*3/uLNormal3.5-11.3[facility] HospitalComment on above:Performed By: #### CMPX, CDP #### [facility] [address] [place] [address] [address] Radio Technician: Apolinar Lemus MDCT CHEST ABDOMEN PELVIS W CONTRASTon [id number] CHEST ABDOMEN PELVIS W CONTRASTEXAMINATION: CT OF THE CHEST, ABDOMEN, AND PELVIS WITH CONTRAST 08/06/2024 4:02 pm TECHNIQUE: CT of the chest, abdomen and pelvis was performed with the administration of intravenous contrast. Multiplanar reformatted images are provided for review. Automated exposure control, iterative reconstruction, and/or weight based adjustment of the mA/kV was utilized to reduce the radiation dose to as low as reasonably achievable. COMPARISON: CT chest December 13, 2022. CT abdomen January 04, 2022. HISTORY: ORDERING SYSTEM PROVIDED HISTORY: SOB / weight loss TECHNOLOGIST PROVIDED HISTORY: SOB / weight loss FINDINGS: Chest: Mediastinum: 7 mm calcification right lobe of the thyroid. Calcified plaque along the aortic arch and moderate least severe stenosis of the brachiocephalic artery. Cardiomegaly and calcific coronary artery disease. Prominent main pulmonary artery measures over 4 cm suggestive of possible pulmonary hypertension. Lungs/pleura: Subsegmental atelectasis left lung base. Lungs otherwise clear. Soft Tissues/Bones: Mild spondylosis and degenerative disc disease. Multilevel vacuum disc phenomena. Abdomen/Pelvis: Organs: Ventral hernia is wide mouth and contains loops of small and large bowel without evidence of obstruction. The liver, spleen, pancreas, and adrenals appear normal. Gallbladder surgically absent. Dilated intra and extrahepatic bile ducts. Moderately severe right renal atrophy. Left kidney normal. The bladder appears normal. GI/Bowel: The stomach,small bowel, and colon appear normal. Increased stool in the colon. A few air-fluid levels are noted in the small bowel. Stomach normal. Appendix normal. Pelvis: Fem-fem bypass graft appears discontiguous and occluded. Bilateral superficial femoral artery occlusion or near occlusion is noted. Peritoneum/Retroperitoneum: . There is no pathologic adenopathy. Calcified plaque along the aorta and its branches. [place] aorta occluded or nearly occluded. Aortic graft appears opacified. No pathologic retroperitoneal lymphadenopathy. IVC normal. Bones/Soft Tissues: Degenerative disc disease and spondylosis. Coxa plana right hip. The cystic changes noted on either side of the joint. Cortical defect noted within the superomedial acetabulum. Compression fracture mild L2. Large posterior bridging disc marginal osteophyte causing moderate spinal stenosis. Grade 1 spondylolisthesis L2-3. Bilateral pars defects noted at L1 and L2. IMPRESSION: 1. Fem-fem bypass graft appears discontiguous and occluded. Bilateral superficial femoral artery occlusion or near occlusion is noted. Age is indeterminate. 2. Cardiomegaly and calcific coronary artery disease. 3. Prominent main pulmonary artery measures over 4 cm suggestive of possible pulmonary hypertension. 4. Ventral hernia is wide mouth and contains loops of small and large bowel without evidence of obstruction. 5. Moderately severe right renal atrophy. 6. Increased stool in the colon. 7. A few air-fluid levels are noted in the small bowel. 8. 7 mm calcification right lobe of the thyroid. Recommend follow-up nonemergent thyroid ultrasound. 9. 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 10. Aortic graft appears opacified. 11. Compression fracture L2, age indeterminate. 12. Large posterior disc marginal osteophyte causing moderately severe spinal stenosis centrally. 13. Grade 1 spondylolisthesis L2-3 and bilateral pars defects at L2 and L3. 14. Multilevel vacuum disc phenomena. Interpreted by: Arben Villalpando MD Signed by: Arben Villalpando MD 08/06/24 Final resultNormalMercy Rockville General Hospital Chest and Abdomen and Pelvis W contrast Atiya . Fem-fem bypass graft appears discontiguous and occluded. Bilateral superficial femoral artery occlusion or near occlusion is noted. Age is indeterminate. 2. Cardiomegaly and calcific coronary artery disease. 3. Prominent main pulmonary artery measures over 4 cm suggestive of possible pulmonary hypertension. 4. Ventral hernia is wide mouth and contains loops of small and large bowel without evidence of obstruction. 5. Moderately severe right renal atrophy. 6. Increased stool in the colon. 7. A few air-fluid levels are noted in the small bowel. 8. 7 mm calcification right lobe of the thyroid. Recommend follow-up nonemergent thyroid ultrasound. 9. 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 10. Aortic graft appears opacified. 11. Compression fracture L2, age indeterminate. 12. Large posterior disc marginal osteophyte causing moderately severe spinal stenosis centrally. 13. Grade 1 spondylolisthesis L2-3 and bilateral pars defects at L2 and L3. 14. Multilevel vacuum disc phenomena. [facility] RIS CONSOLIDATEDEXAMINATION: CT OF THE CHEST, ABDOMEN, AND PELVIS WITH CONTRAST 08/06/2024 4:02 pm TECHNIQUE: CT of the chest, abdomen and pelvis was performed with the administration of intravenous contrast. Multiplanar reformatted images are provided for review. Automated exposure control, iterative reconstruction, and/or weight based adjustment of the mA/kV was utilized to reduce the radiation dose to as low as reasonably achievable. COMPARISON: CT chest December 13, 2022. CT abdomen January 04, 2022. HISTORY: ORDERING SYSTEM PROVIDED HISTORY: SOB / weight loss TECHNOLOGIST PROVIDED HISTORY: SOB / weight loss FINDINGS: Chest: Mediastinum: 7 mm calcification right lobe of the thyroid. Calcified plaque along the aortic arch and moderate least severe stenosis of the brachiocephalic artery. Cardiomegaly and calcific coronary artery disease. Prominent main pulmonary artery measures over 4 cm suggestive of possible pulmonary hypertension. Lungs/pleura: Subsegmental atelectasis left lung base. Lungs otherwise clear. Soft Tissues/Bones: Mild spondylosis and degenerative disc disease. Multilevel vacuum disc phenomena. Abdomen/Pelvis: Organs: Ventral hernia is wide mouth and contains loops of small and large bowel without evidence of obstruction. The liver, spleen, pancreas, and adrenals appear normal. Gallbladder surgically absent. Dilated intra and extrahepatic bile ducts. Moderately severe right renal atrophy. Left kidney normal. The bladder appears normal. GI/Bowel: The stomach,small bowel, and colon appear normal. Increased stool in the colon. A few air-fluid levels are noted in the small bowel. Stomach normal. Appendix normal. Pelvis: Fem-fem bypass graft appears discontiguous and occluded. Bilateral superficial femoral artery occlusion or near occlusion is noted. Peritoneum/Retroperitoneum: . There is no pathologic adenopathy. Calcified plaque along the aorta and its branches. [place] aorta occluded or nearly occluded. Aortic graft appears opacified. No pathologic retroperitoneal lymphadenopathy. IVC normal. Bones/Soft Tissues: Degenerative disc disease and spondylosis. Coxa plana right hip. The cystic changes noted on either side of the joint. Cortical defect noted within the superomedial acetabulum. Compression fracture mild L2. Large posterior bridging disc marginal osteophyte causing moderate spinal stenosis. Grade 1 spondylolisthesis L2-3. Bilateral pars defects noted at L1 and L2. [facility] Arben George MD - 08/06/2024 EXAMINATION: CT OF THE CHEST, ABDOMEN, AND PELVIS WITH CONTRAST 08/06/2024 4:02 pm TECHNIQUE: CT of the chest, abdomen and pelvis was performed with the administration of intravenous contrast. Multiplanar reformatted images are provided for review. Automated exposure control, iterative reconstruction, and/or weight based adjustment of the mA/kV was utilized to reduce the radiation dose to as low as reasonably achievable. COMPARISON: CT chest December 13, 2022. CT abdomen January 04, 2022. HISTORY: ORDERING SYSTEM PROVIDED HISTORY: SOB / weight loss TECHNOLOGIST PROVIDED HISTORY: SOB / weight loss FINDINGS: Chest: Mediastinum: 7 mm calcification right lobe of the thyroid. Calcified plaque along the aortic arch and moderate least severe stenosis of the brachiocephalic artery. Cardiomegaly and calcific coronary artery disease. Prominent main pulmonary artery measures over 4 cm suggestive of possible pulmonary hypertension. Lungs/pleura: Subsegmental atelectasis left lung base. Lungs otherwise clear. Soft Tissues/Bones: Mild spondylosis and degenerative disc disease. Multilevel vacuum disc phenomena. Abdomen/Pelvis: Organs: Ventral hernia is wide mouth and contains loops of small and large bowel without evidence of obstruction. The liver, spleen, pancreas, and adrenals appear normal. Gallbladder surgically absent. Dilated intra and extrahepatic bile ducts. Moderately severe right renal atrophy. Left kidney normal. The bladder appears normal. GI/Bowel: The stomach,small bowel, and colon appear normal. Increased stool in the colon. A few air-fluid levels are noted in the small bowel. Stomach normal. Appendix normal. Pelvis: Fem-fem bypass graft appears discontiguous and occluded. Bilateral superficial femoral artery occlusion or near occlusion is noted. Peritoneum/Retroperitoneum: . There is no pathologic adenopathy. Calcified plaque along the aorta and its branches. [place] aorta occluded or nearly occluded. Aortic graft appears opacified. No pathologic retroperitoneal lymphadenopathy. IVC normal. Bones/Soft Tissues: Degenerative disc disease and spondylosis. Coxa plana right hip. The cystic changes noted on either side of the joint. Cortical defect noted within the superomedial acetabulum. Compression fracture mild L2. Large posterior bridging disc marginal osteophyte causing moderate spinal stenosis. Grade 1 spondylolisthesis L2-3. Bilateral pars defects noted at L1 and L2. IMPRESSION: 1. Fem-fem bypass graft appears discontiguous and occluded. Bilateral superficial femoral artery occlusion or near occlusion is noted. Age is indeterminate. 2. Cardiomegaly and calcific coronary artery disease. 3. Prominent main pulmonary artery measures over 4 cm suggestive of possible pulmonary hypertension. 4. Ventral hernia is wide mouth and contains loops of small and large bowel without evidence of obstruction. 5. Moderately severe right renal atrophy. 6. Increased stool in the colon. 7. A few air-fluid levels are noted in the small bowel. 8. 7 mm calcification right lobe of the thyroid. Recommend follow-up nonemergent thyroid ultrasound. 9. 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 10. Aortic graft appears opacified. 11. Compression fracture L2, age indeterminate. 12. Large posterior disc marginal osteophyte causing moderately severe spinal stenosis centrally. 13. Grade 1 spondylolisthesis L2-3 and bilateral pars defects at L2 and L3. 14. Multilevel vacuum disc phenomena. [facility] CenterRadiology Study observation (narrative)[facility] Chest and Abdomen and Pelvis W contrast IVOrdered By: Arben Villalpando on [id number] [facility] [place] Work Phone: CT FOOT LEFT W CONTRASTon [id number] FOOT LEFT W CONTRASTEXAMINATION: CT OF THE RIGHT TIBIA AND FIBULA WITH CONTRAST; CT OF THE LEFT FOOT WITH CONTRAST; CT OF THE LEFT TIBIA AND FIBULA WITH CONTRAST; CT OF THE RIGHT FOOT WITH CONTRAST 08/06/2024 4:06 pm TECHNIQUE: CT of the right tibia and fibula was performed with the administration of intravenous contrast. Multiplanar reformatted images are provided for review. Automated exposure control, iterative reconstruction, and/or weight based adjustment of the mA/kV was utilized to reduce the radiation dose to as low as reasonably achievable.; CT of the left foot was performed with the administration of intravenous contrast. Multiplanar reformatted images are provided for review. Automated exposure control, iterative reconstruction, and/or weight based adjustment of the mA/kV was utilized to reduce the radiation dose to as low as reasonably achievable.; CT of the left tibia and fibula was performed with the administration of intravenous contrast. Multiplanar reformatted images are provided for review. Automated exposure control, iterative reconstruction, and/or weight based adjustment of the mA/kV was utilized to reduce the radiation dose to as low as reasonably achievable.; CT of the right foot was performed with the administration of intravenous contrast. Multiplanar reformatted images are provided for review. Automated exposure control, iterative reconstruction, and/or weight based adjustment of the mA/kV was utilized to reduce the radiation dose to as low as reasonably achievable. COMPARISON: 01/02/2024 HISTORY ORDERING SYSTEM PROVIDED HISTORY: falls / wounds TECHNOLOGIST PROVIDED HISTORY: falls / wounds Additional Contrast?->1; ORDERING SYSTEM PROVIDED HISTORY: wounds / falls TECHNOLOGIST PROVIDED HISTORY: wounds / falls Additional Contrast?->1 FINDINGS: Right tibia/fibula and foot: Bones: No evidence of acute fracture or dislocation. No aggressive appearing osseous abnormality or periostitis. Plantar calcaneal spur. Soft Tissue: Severe subcutaneous edema throughout the lower calf, ankle and foot most pronounced dorsally. No drainable fluid collection. Extensive atherosclerotic vascular calcifications. No soft tissue gas. No focal intramuscular abnormality. Joint: Edas-we-spkvxpgn tricompartmental osteoarthritis of the knee joint. No osseous erosions. Left tibia/fibula and foot: Bones: No evidence of acute fracture or dislocation. No aggressive appearing osseous abnormality or periostitis. Soft Tissue: Extensive subcutaneous edema throughout the calf, ankle and foot. Focal area of increased soft tissue swelling within the lateral dorsal forefoot, without drainable fluid collection in this region, possibly related to underlying hematoma or phlegmon (series 8/image 430 and series 609/image 155). Focal area of non enhancement within the plantar foot soft tissues may reflect tissue necrosis (series 8/image 417 and series 609/image 117). Small ulceration within the lateral ankle skin with adjacent focus of soft tissue gas (series 8/images 363-367). Visualized portions of a popliteal bypass graft appear occluded. No focal intramuscular abnormality. Joint: Moderate to severe osteoarthritis of the knee joint. No osseous erosions. IMPRESSION: CT right tibia/fibula and foot: 1. No acute fracture or CT evidence of osteomyelitis. 2. Extensive subcutaneous edema throughout the lower extremity which may represent cellulitis. No drainable fluid collection or soft tissue gas identified. 3. Additional findings, as above. CT left tibia/fibula and foot: 1. Extensive lower extremity subcutaneous edema which may reflect cellulitis. Focal area of non enhancement within the plantar heel soft tissues possibly representing tissue necrosis. No drainable fluid collection identified in this region. MR follow-up may be useful as clinically warranted. 2. Focally increased superficial soft tissue edema within the lateral dorsal forefoot possibly representing phlegmon or small hematoma. No drainable fluid collection identified in this region at this time. 3. Small skin ulceration overlying the lateral malleolus with subjacent focus of subcutaneous air. No gross evidence of necrotizing fasciitis. 4. No acute fracture or CT evidence of osteomyelitis. Interpreted by: Geovanny Melo MD Signed by: Geovanny Melo MD 08/06/24 Final resultNormalMerNatchaug Hospital FOOT RIGHT W CONTRASTon [id number] FOOT RIGHT W CONTRASTEXAMINATION: CT OF THE RIGHT TIBIA AND FIBULA WITH CONTRAST; CT OF THE LEFT FOOT WITH CONTRAST; CT OF THE LEFT TIBIA AND FIBULA WITH CONTRAST; CT OF THE RIGHT FOOT WITH CONTRAST 08/06/2024 4:06 pm TECHNIQUE: CT of the right tibia and fibula was performed with the administration of intravenous contrast. Multiplanar reformatted images are provided for review. Automated exposure control, iterative reconstruction, and/or weight based adjustment of the mA/kV was utilized to reduce the radiation dose to as low as reasonably achievable.; CT of the left foot was performed with the administration of intravenous contrast. Multiplanar reformatted images are provided for review. Automated exposure control, iterative reconstruction, and/or weight based adjustment of the mA/kV was utilized to reduce the radiation dose to as low as reasonably achievable.; CT of the left tibia and fibula was performed with the administration of intravenous contrast. Multiplanar reformatted images are provided for review. Automated exposure control, iterative reconstruction, and/or weight based adjustment of the mA/kV was utilized to reduce the radiation dose to as low as reasonably achievable.; CT of the right foot was performed with the administration of intravenous contrast. Multiplanar reformatted images are provided for review. Automated exposure control, iterative reconstruction, and/or weight based adjustment of the mA/kV was utilized to reduce the radiation dose to as low as reasonably achievable. COMPARISON: 01/02/2024 HISTORY ORDERING SYSTEM PROVIDED HISTORY: falls / wounds TECHNOLOGIST PROVIDED HISTORY: falls / wounds Additional Contrast?->1; ORDERING SYSTEM PROVIDED HISTORY: wounds / falls TECHNOLOGIST PROVIDED HISTORY: wounds / falls Additional Contrast?->1 FINDINGS: Right tibia/fibula and foot: Bones: No evidence of acute fracture or dislocation. No aggressive appearing osseous abnormality or periostitis. Plantar calcaneal spur. Soft Tissue: Severe subcutaneous edema throughout the lower calf, ankle and foot most pronounced dorsally. No drainable fluid collection. Extensive atherosclerotic vascular calcifications. No soft tissue gas. No focal intramuscular abnormality. Joint: Ttie-xj-lbwibbtv tricompartmental osteoarthritis of the knee joint. No osseous erosions. Left tibia/fibula and foot: Bones: No evidence of acute fracture or dislocation. No aggressive appearing osseous abnormality or periostitis. Soft Tissue: Extensive subcutaneous edema throughout the calf, ankle and foot. Focal area of increased soft tissue swelling within the lateral dorsal forefoot, without drainable fluid collection in this region, possibly related to underlying hematoma or phlegmon (series 8/image 430 and series 609/image 155). Focal area of non enhancement within the plantar foot soft tissues may reflect tissue necrosis (series 8/image 417 and series 609/image 117). Small ulceration within the lateral ankle skin with adjacent focus of soft tissue gas (series 8/images 363-367). Visualized portions of a popliteal bypass graft appear occluded. No focal intramuscular abnormality. Joint: Moderate to severe osteoarthritis of the knee joint. No osseous erosions. IMPRESSION: CT right tibia/fibula and foot: 1. No acute fracture or CT evidence of osteomyelitis. 2. Extensive subcutaneous edema throughout the lower extremity which may represent cellulitis. No drainable fluid collection or soft tissue gas identified. 3. Additional findings, as above. CT left tibia/fibula and foot: 1. Extensive lower extremity subcutaneous edema which may reflect cellulitis. Focal area of non enhancement within the plantar heel soft tissues possibly representing tissue necrosis. No drainable fluid collection identified in this region. MR follow-up may be useful as clinically warranted. 2. Focally increased superficial soft tissue edema within the lateral dorsal forefoot possibly representing phlegmon or small hematoma. No drainable fluid collection identified in this region at this time. 3. Small skin ulceration overlying the lateral malleolus with subjacent focus of subcutaneous air. No gross evidence of necrotizing fasciitis. 4. No acute fracture or CT evidence of osteomyelitis. Interpreted by: Geovanny Melo MD Signed by: Geovanny Melo MD 08/06/24 Final resultNormalMerNatchaug Hospital Foot - left W contrast Atiya 08-06-2024 Radiology Study observation (narrative)[facility] Foot - right W contrast Atiya [id number] Study observation (narrative)[facility] HEAD WO CONTRASTon [id number] HEAD WO CONTRASTEXAMINATION: CT OF THE HEAD WITHOUT CONTRAST 08/06/2024 4:01 pm TECHNIQUE: CT of the head was performed without the administration of intravenous contrast. Automated exposure control, iterative reconstruction, and/or weight based adjustment of the mA/kV was utilized to reduce the radiation dose to as low as reasonably achievable. COMPARISON: 02/09/2021 HISTORY: Falls. FINDINGS: Image quality degraded by motion artifact. BRAIN/VENTRICLES: No acute intracranial hemorrhage, mass effect, or midline shift. No abnormal extra-axial fluid collection. The stephenson-white differentiation is maintained without evidence of an acute infarct. Mild-moderate parenchymal volume loss and chronic small vessel ischemic changes. No hydrocephalus. ORBITS: The visualized portion of the orbits demonstrate no acute abnormality. SINUSES: The visualized paranasal sinuses and mastoid air cells demonstrate no acute abnormality. SOFT TISSUES/SKULL: Mild hematoma along the left forehead. No acute calvarial fracture. IMPRESSION: No acute intracranial abnormality or calvarial fracture. Interpreted by: Georgiana Peng MD Signed by: Georgiana Peng MD 08/06/24 Final resultNormalMercy [facility] Head WO contraston [id number] acute intracranial abnormality or calvarial fracture. [facility] RIS CONSOLIDATEDEXAMINATION: CT OF THE HEAD WITHOUT CONTRAST 08/06/2024 4:01 pm TECHNIQUE: CT of the head was performed without the administration of intravenous contrast. Automated exposure control, iterative reconstruction, and/or weight based adjustment of the mA/kV was utilized to reduce the radiation dose to as low as reasonably achievable. COMPARISON: 02/09/2021 HISTORY: Falls. FINDINGS: Image quality degraded by motion artifact. BRAIN/VENTRICLES: No acute intracranial hemorrhage, mass effect, or midline shift. No abnormal extra-axial fluid collection. The stephenson-white differentiation is maintained without evidence of an acute infarct. Mild-moderate parenchymal volume loss and chronic small vessel ischemic changes. No hydrocephalus. ORBITS: The visualized portion of the orbits demonstrate no acute abnormality. SINUSES: The visualized paranasal sinuses and mastoid air cells demonstrate no acute abnormality. SOFT TISSUES/SKULL: Mild hematoma along the left forehead. No acute calvarial fracture. [facility] Georgiana Aguilar MD - 08/06/2024 EXAMINATION: CT OF THE HEAD WITHOUT CONTRAST 08/06/2024 4:01 pm TECHNIQUE: CT of the head was performed without the administration of intravenous contrast. Automated exposure control, iterative reconstruction, and/or weight based adjustment of the mA/kV was utilized to reduce the radiation dose to as low as reasonably achievable. COMPARISON: 02/09/2021 HISTORY: Falls. FINDINGS: Image quality degraded by motion artifact. BRAIN/VENTRICLES: No acute intracranial hemorrhage, mass effect, or midline shift. No abnormal extra-axial fluid collection. The stephenson-white differentiation is maintained without evidence of an acute infarct. Mild-moderate parenchymal volume loss and chronic small vessel ischemic changes. No hydrocephalus. ORBITS: The visualized portion of the orbits demonstrate no acute abnormality. SINUSES: The visualized paranasal sinuses and mastoid air cells demonstrate no acute abnormality. SOFT TISSUES/SKULL: Mild hematoma along the left forehead. No acute calvarial fracture. IMPRESSION: No acute intracranial abnormality or calvarial fracture. [facility] [employer] TechnologiesRadiology Study observation (narrative)[facility] BTC Trip [facility] Head WO contrastOrdered By: Georgiana Peng on [id number] [email or web address] Work Phone: CT Lower leg - left W contrast Atiya 08-06-2024 Radiology Study observation (narrative)[facility] Lower leg - right W contrast Atiya [id number] Study observation (narrative)[facility] TIBIA FIBULA LEFT W CONTRASTon [id number] TIBIA FIBULA LEFT W CONTRASTEXAMINATION: CT OF THE RIGHT TIBIA AND FIBULA WITH CONTRAST; CT OF THE LEFT FOOT WITH CONTRAST; CT OF THE LEFT TIBIA AND FIBULA WITH CONTRAST; CT OF THE RIGHT FOOT WITH CONTRAST 08/06/2024 4:06 pm TECHNIQUE: CT of the right tibia and fibula was performed with the administration of intravenous contrast. Multiplanar reformatted images are provided for review. Automated exposure control, iterative reconstruction, and/or weight based adjustment of the mA/kV was utilized to reduce the radiation dose to as low as reasonably achievable.; CT of the left foot was performed with the administration of intravenous contrast. Multiplanar reformatted images are provided for review. Automated exposure control, iterative reconstruction, and/or weight based adjustment of the mA/kV was utilized to reduce the radiation dose to as low as reasonably achievable.; CT of the left tibia and fibula was performed with the administration of intravenous contrast. Multiplanar reformatted images are provided for review. Automated exposure control, iterative reconstruction, and/or weight based adjustment of the mA/kV was utilized to reduce the radiation dose to as low as reasonably achievable.; CT of the right foot was performed with the administration of intravenous contrast. Multiplanar reformatted images are provided for review. Automated exposure control, iterative reconstruction, and/or weight based adjustment of the mA/kV was utilized to reduce the radiation dose to as low as reasonably achievable. COMPARISON: 01/02/2024 HISTORY ORDERING SYSTEM PROVIDED HISTORY: falls / wounds TECHNOLOGIST PROVIDED HISTORY: falls / wounds Additional Contrast?->1; ORDERING SYSTEM PROVIDED HISTORY: wounds / falls TECHNOLOGIST PROVIDED HISTORY: wounds / falls Additional Contrast?->1 FINDINGS: Right tibia/fibula and foot: Bones: No evidence of acute fracture or dislocation. No aggressive appearing osseous abnormality or periostitis. Plantar calcaneal spur. Soft Tissue: Severe subcutaneous edema throughout the lower calf, ankle and foot most pronounced dorsally. No drainable fluid collection. Extensive atherosclerotic vascular calcifications. No soft tissue gas. No focal intramuscular abnormality. Joint: Sdpz-sf-zxqwokwu tricompartmental osteoarthritis of the knee joint. No osseous erosions. Left tibia/fibula and foot: Bones: No evidence of acute fracture or dislocation. No aggressive appearing osseous abnormality or periostitis. Soft Tissue: Extensive subcutaneous edema throughout the calf, ankle and foot. Focal area of increased soft tissue swelling within the lateral dorsal forefoot, without drainable fluid collection in this region, possibly related to underlying hematoma or phlegmon (series 8/image 430 and series 609/image 155). Focal area of non enhancement within the plantar foot soft tissues may reflect tissue necrosis (series 8/image 417 and series 609/image 117). Small ulceration within the lateral ankle skin with adjacent focus of soft tissue gas (series 8/images 363-367). Visualized portions of a popliteal bypass graft appear occluded. No focal intramuscular abnormality. Joint: Moderate to severe osteoarthritis of the knee joint. No osseous erosions. IMPRESSION: CT right tibia/fibula and foot: 1. No acute fracture or CT evidence of osteomyelitis. 2. Extensive subcutaneous edema throughout the lower extremity which may represent cellulitis. No drainable fluid collection or soft tissue gas identified. 3. Additional findings, as above. CT left tibia/fibula and foot: 1. Extensive lower extremity subcutaneous edema which may reflect cellulitis. Focal area of non enhancement within the plantar heel soft tissues possibly representing tissue necrosis. No drainable fluid collection identified in this region. MR follow-up may be useful as clinically warranted. 2. Focally increased superficial soft tissue edema within the lateral dorsal forefoot possibly representing phlegmon or small hematoma. No drainable fluid collection identified in this region at this time. 3. Small skin ulceration overlying the lateral malleolus with subjacent focus of subcutaneous air. No gross evidence of necrotizing fasciitis. 4. No acute fracture or CT evidence of osteomyelitis. Interpreted by: Geovanny Melo MD Signed by: Geovanny Melo MD 08/06/24 Final resultNormalMercy [facility]ville General Hospital TIBIA FIBULA RIGHT W CONTRASTon [id number] TIBIA FIBULA RIGHT W CONTRASTEXAMINATION: CT OF THE RIGHT TIBIA AND FIBULA WITH CONTRAST; CT OF THE LEFT FOOT WITH CONTRAST; CT OF THE LEFT TIBIA AND FIBULA WITH CONTRAST; CT OF THE RIGHT FOOT WITH CONTRAST 08/06/2024 4:06 pm TECHNIQUE: CT of the right tibia and fibula was performed with the administration of intravenous contrast. Multiplanar reformatted images are provided for review. Automated exposure control, iterative reconstruction, and/or weight based adjustment of the mA/kV was utilized to reduce the radiation dose to as low as reasonably achievable.; CT of the left foot was performed with the administration of intravenous contrast. Multiplanar reformatted images are provided for review. Automated exposure control, iterative reconstruction, and/or weight based adjustment of the mA/kV was utilized to reduce the radiation dose to as low as reasonably achievable.; CT of the left tibia and fibula was performed with the administration of intravenous contrast. Multiplanar reformatted images are provided for review. Automated exposure control, iterative reconstruction, and/or weight based adjustment of the mA/kV was utilized to reduce the radiation dose to as low as reasonably achievable.; CT of the right foot was performed with the administration of intravenous contrast. Multiplanar reformatted images are provided for review. Automated exposure control, iterative reconstruction, and/or weight based adjustment of the mA/kV was utilized to reduce the radiation dose to as low as reasonably achievable. COMPARISON: 01/02/2024 HISTORY ORDERING SYSTEM PROVIDED HISTORY: falls / wounds TECHNOLOGIST PROVIDED HISTORY: falls / wounds Additional Contrast?->1; ORDERING SYSTEM PROVIDED HISTORY: wounds / falls TECHNOLOGIST PROVIDED HISTORY: wounds / falls Additional Contrast?->1 FINDINGS: Right tibia/fibula and foot: Bones: No evidence of acute fracture or dislocation. No aggressive appearing osseous abnormality or periostitis. Plantar calcaneal spur. Soft Tissue: Severe subcutaneous edema throughout the lower calf, ankle and foot most pronounced dorsally. No drainable fluid collection. Extensive atherosclerotic vascular calcifications. No soft tissue gas. No focal intramuscular abnormality. Joint: Nbxf-rl-axfqlzas tricompartmental osteoarthritis of the knee joint. No osseous erosions. Left tibia/fibula and foot: Bones: No evidence of acute fracture or dislocation. No aggressive appearing osseous abnormality or periostitis. Soft Tissue: Extensive subcutaneous edema throughout the calf, ankle and foot. Focal area of increased soft tissue swelling within the lateral dorsal forefoot, without drainable fluid collection in this region, possibly related to underlying hematoma or phlegmon (series 8/image 430 and series 609/image 155). Focal area of non enhancement within the plantar foot soft tissues may reflect tissue necrosis (series 8/image 417 and series 609/image 117). Small ulceration within the lateral ankle skin with adjacent focus of soft tissue gas (series 8/images 363-367). Visualized portions of a popliteal bypass graft appear occluded. No focal intramuscular abnormality. Joint: Moderate to severe osteoarthritis of the knee joint. No osseous erosions. IMPRESSION: CT right tibia/fibula and foot: 1. No acute fracture or CT evidence of osteomyelitis. 2. Extensive subcutaneous edema throughout the lower extremity which may represent cellulitis. No drainable fluid collection or soft tissue gas identified. 3. Additional findings, as above. CT left tibia/fibula and foot: 1. Extensive lower extremity subcutaneous edema which may reflect cellulitis. Focal area of non enhancement within the plantar heel soft tissues possibly representing tissue necrosis. No drainable fluid collection identified in this region. MR follow-up may be useful as clinically warranted. 2. Focally increased superficial soft tissue edema within the lateral dorsal forefoot possibly representing phlegmon or small hematoma. No drainable fluid collection identified in this region at this time. 3. Small skin ulceration overlying the lateral malleolus with subjacent focus of subcutaneous air. No gross evidence of necrotizing fasciitis. 4. No acute fracture or CT evidence of osteomyelitis. Interpreted by: Geovanny Melo MD Signed by: Geovanny Melo MD 08/06/24 Final resultNormalBluffton HospitalComp Metabolic Pr/rfx MGon 08-06-2024 Albumin [Mass/Vol]3.4 g/dLLow3.5-5.2MCincinnati Children's Hospital Medical CenterComment on above: Performed By: #### CMPX, CDP #### [address] [place] [id number] [employer] [address] Radio Technician: Apolinar Lemus MDAlbumin/Glob Ratio1.2Ljckea8.0-2.5Bluffton HospitalComment on above:Performed By: #### CMPX, CDP #### [address] [place] [id number] [employer] [address] Radio Technician: Germania Mckenziekaline Phos95 U/YPjebky65-220LhkrtBluffton HospitalComment on above:Performed By: #### CMPX, CDP #### [address] [place] [address] [address] [employer] Technician: Apolinar Lemus MDALT [Catalytic activity/Vol]11 U/AArkyhl91-41LcxnlBluffton HospitalComment on above:Performed By: #### CMPX, CDP #### [address] [place], [place] [id number] [employer] [address] [employer] Technician: Apolinar Lemus MDAnion gap [Moles/Vol]9 mmol/LNormal9-16Bluffton HospitalComment on above:Performed By: #### CMPX, CDP #### [address] [place], [place] [id number] [employer] [address] [employer] Technician: Apolinar Lemus MDAST [Catalytic activity/Vol]21 U/DXffpbm27-53WmrdeBluffton HospitalComment on above:Performed By: #### CMPX, CDP #### [address] [place], [place] [id number] [employer] [address] Radio Technician: Apolinar Lemus MDBilirubin [Mass/Vol]mg/dLNormal0.00-1.20Bl[facility]ton HospitalComment on above:Performed By: #### CMPX, CDP #### [address] [place], [place] [id number] [employer] [address] Radio Technician: Apolinar Lemus MDBUN/CRE Qcpob79Ctbkwu5-78Vsjru [facility] Comment on above:Performed By: #### CMPX, CDP #### [address] [place], [place] [id number] [employer] [address] Radio Technician: Apolinar Lemus MDCalcium [Mass/Vol]8.2 mg/dLLow8.6-10.4Bluffton HospitalComment on above:Performed By: #### CMPX, CDP #### [address] [place] [address] [address] Radio Technician: ANNITA Mckenziehloride [Moles/Vol]102 mmol/ENnktsc98-041XolfnBluffton HospitalComment on above:Performed By: #### CMPX, CDP #### [address] [place], [place] [id number] [employer] [address] Radio Technician: Apolinar Lemus MDCO2 [Moles/Vol]23 mmol/OMbibjr53-80LqjhjBluffton HospitalComment on above:Performed By: #### CMPX, CDP #### [address] [place] [address] [address] [employer] Technician: ANNITA Mckenziereatinine [Mass/Vol]1.0 mg/dLHigh0.50-0.90Bluffton HospitalComment on above:Performed By: #### CMPX, CDP #### [address] [place] [address] [address] [employer] Technician: Apolinar Lemus MDGFR/1.73 sq M.predicted among non-blacks MDRD (S/P/Bld) [Vol rate/Area]67 mL/min/{1.73_m2}Normal>60[facility] Comment on above:Result Comment: These results are not intended for use in patients <18 years of age. eGFR results are calculated without a race factor using the 2020 CKD-EPI equation. Careful clinical correlation is recommended, particularly when comparing to results calculated using previous equations. The CKD-EPI equation is less accurate in patients with extremes of muscle mass, extra-renal metabolism of creatine, excessive creatine ingestion, or following therapy that affects renal tubular secretion.Performed By: #### CMPX, CDP #### [address] [place] [address] [address] Radio Technician: Apolinar Lemus MDGlucose [Mass/Vol]141 mg/mKJdoc86-38YfjhwCincinnati Children's Hospital Medical CenterComment on above:Performed By: #### CMPX, CDP #### [address] [place] [address] [address] Radio Technician: ROJAS Mckenzieotassium [Moles/Vol]3.6 mmol/LLow3.7-5.3MCincinnati Children's Hospital Medical CenterComment on above:Performed By: #### CMPX, CDP #### [address] [place] [address] [address] Radio Technician: Apolinar Lemus MDProtein [Mass/Vol]5.8 g/dLLow6.6-8.7[facility] HospitalComment on above:Performed By: #### CMPX, CDP #### [facility] [address] [place] [address] [place] [address] [address] Technician: ADÁN Mckenzieodium [Moles/Vol]134 mmol/KYqq811-607PbgajBluffton HospitalComment on above:Performed By: #### CMPX, CDP #### [facility] [address] [place] [address] [place] [address] [address] Technician: Apolinar Lemus MDUrea nitrogen [Mass/Vol]16 mg/dLNormal8-23[facility] HospitalComment on above:Performed By: #### CMPX, CDP #### [address] [place] [address] [address] Radio Technician: ANNITA Mckenzieomprehensive Metabolic Panel w/ Reflex to MGon [id number] [Mass/Vol]3.4 g/dLLow3.5 - 5.2 g/dLBon [facility] Albumin/Globulin [Mass ratio]1.4 {ratio}1.0 - 2.5Bon [facility] HealthALP [Catalytic activity/Vol]95 U/L35 - 104 U/LBon [facility] HealthALT [Catalytic activity/Vol]11 U/L10 - 35 U/LBon [facility]ours [facility] Hospitaly HealthAnion gap [Moles/Vol]9 mmol/L9 - 16 mmol/LBon [facility]y HealthAST [Catalytic activity/Vol]21 U/L10 - 35 U/LBon [facility]ours [facility] Hospitaly HealthBilirubin [Mass/Vol]mg/dL0.00 - 1.20 mg/dLBon Secours [facility] Hospitaly HealthCalcium [Mass/Vol]8.2 mg/dLLow8.6 - 10.4 mg/dLBon Secours [facility] Hospitaly HealthChloride [Moles/Vol]102 mmol/L98 - 107 mmol/LBon [facility]ours [facility] Hospitaly HealthCO2 [Moles/Vol]23 mmol/L20 - 31 mmol/LBon [facility] HealthCreatinine [Mass/Vol]1.0 mg/dLHigh0.50 - 0.90 mg/dLBon [facility] OhioEst, Glom Filt Rate67- PINFBon [facility] OhioComment on above: These results are not intended for use in patients <18 years of age. eGFR results are calculated without a race factor using the 2020 CKD-EPI equation. Careful clinical correlation is recommended, particularly when comparing to results calculated using previous equations. The CKD-EPI equation is less accurate in patients with extremes of muscle mass, extra-renal metabolism of creatine, excessive creatine ingestion, or following therapy that affects renal tubular secretion. Glucose [Mass/Vol]141 mg/hSOdpu27 - 99 mg/dLBon [facility] [place] Interpretation and review of laboratory resultsAbnormalBon [facility] [place] Potassium [Moles/Vol]3.6 mmol/LLow3.7 - 5.3 mmol/LBon [facility] Protein [Mass/Vol]5.8 g/dLLow6.6 - 8.7 g/dLBon [facility] OhioSodium [Moles/Vol]134 mmol/KTre763 - 145 mmol/LBon [facility] OhioUrea nitrogen [Mass/Vol]16 mg/dL8 - 23 mg/dLBon [facility] OhioUrea nitrogen/Creatinine [Mass ratio]16 mg/mg9 - 20Bon [facility] CenterGram Stainon 67-47-2446Mlgweggjtdq observation Gram stain Nom (Unsp spec)Specimen Description .WOUND Special Requests Site: Foot Direct Exam < 10 EPITHELIAL CELLS/LPF <10 NEUTROPHILS/LPF MIXED BACTERIAL MORPHOTYPES SEEN ON GRAM STAIN. Report Status FINAL 5AbnormalBluffton HospitalComment on above: Performed By: #### GRACIE UAX #### [facility] [address] [place] [address] [address] Technician: Apolinar Lemus MDHemoglobin A1Con 10-08-3779Otvcmrs glucose Estimated from glycated hemoglobin (Bld) [Mass/Vol]160 mg/dLBon [facility] OhioComment on above:The ADA and AACC recommend providing the estimated average glucose result to permit better patient understanding of their HBA1c result. HbA1c (Bld) [Mass fraction]7.2 %High4.0 - 6.0 %[facility] Interpretation and review of laboratory resultsAbnormBon Secours Maryview Medical CenterGlucose [Mass/Vol]160 mg/dLNoCleveland Clinic [facility] Comment on above:Result Comment: The ADA and AACC recommend providing the estimated average glucose result to permit better patient understanding of their HBA1c result.Performed By: #### GLYHGB #### [facility] [address] [place] [address] [address] Radio Technician: Mark Liriano MDHbA1c (Bld) [Mass fraction]7.2 %High4.0-6.0[facility] HospitalComment on above:Performed By: #### GLYHGB #### [facility] [address] [place] [address] [address] Radio Technician: Mark Liriano MDLactate, Sepsison 13-29-2270Oapydda (BldV) [Moles/Vol]0.7 mmol/L0.5 - 1.9 mmol/LBon [facility] CenterLactic Acid, Sepsis0.7 mmol/LNormal0.5-1.9[facility] HospitalComment on above:Performed By: #### CMPX, CDP #### [facility] [address] [place] [address] [address] Technician: Apolinar Lemus MDNo Panel Informationon [id number] right tibia/fibula and foot: 1. No acute fracture or CT evidence of osteomyelitis. 2. Extensive subcutaneous edema throughout the lower extremity which may represent cellulitis. No drainable fluid collection or soft tissue gas identified. 3. Additional findings, as above. CT left tibia/fibula and foot: 1. Extensive lower extremity subcutaneous edema which may reflect cellulitis. Focal area of non enhancement within the plantar heel soft tissues possibly representing tissue necrosis. No drainable fluid collection identified in this region. MR follow-up may be useful as clinically warranted. 2. Focally increased superficial soft tissue edema within the lateral dorsal forefoot possibly representing phlegmon or small hematoma. No drainable fluid collection identified in this region at this time. 3. Small skin ulceration overlying the lateral malleolus with subjacent focus of subcutaneous air. No gross evidence of necrotizing fasciitis. 4. No acute fracture or CT evidence of osteomyelitis. MHPN RIS CONSOLIDATEDEXAMINATION: CT OF THE RIGHT TIBIA AND FIBULA WITH CONTRAST; CT OF THE LEFT FOOT WITH CONTRAST; CT OF THE LEFT TIBIA AND FIBULA WITH CONTRAST; CT OF THE RIGHT FOOT WITH CONTRAST 08/06/2024 4:06 pm TECHNIQUE: CT of the right tibia and fibula was performed with the administration of intravenous contrast. Multiplanar reformatted images are provided for review. Automated exposure control, iterative reconstruction, and/or weight based adjustment of the mA/kV was utilized to reduce the radiation dose to as low as reasonably achievable.; CT of the left foot was performed with the administration of intravenous contrast. Multiplanar reformatted images are provided for review. Automated exposure control, iterative reconstruction, and/or weight based adjustment of the mA/kV was utilized to reduce the radiation dose to as low as reasonably achievable.; CT of the left tibia and fibula was performed with the administration of intravenous contrast. Multiplanar reformatted images are provided for review. Automated exposure control, iterative reconstruction, and/or weight based adjustment of the mA/kV was utilized to reduce the radiation dose to as low as reasonably achievable.; CT of the right foot was performed with the administration of intravenous contrast. Multiplanar reformatted images are provided for review. Automated exposure control, iterative reconstruction, and/or weight based adjustment of the mA/kV was utilized to reduce the radiation dose to as low as reasonably achievable. COMPARISON: 01/02/2024 HISTORY ORDERING SYSTEM PROVIDED HISTORY: falls / wounds TECHNOLOGIST PROVIDED HISTORY: falls / wounds Additional Contrast?->1; ORDERING SYSTEM PROVIDED HISTORY: wounds / falls TECHNOLOGIST PROVIDED HISTORY: wounds / falls Additional Contrast?->1 FINDINGS: Right tibia/fibula and foot: Bones: No evidence of acute fracture or dislocation. No aggressive appearing osseous abnormality or periostitis. Plantar calcaneal spur. Soft Tissue: Severe subcutaneous edema throughout the lower calf, ankle and foot most pronounced dorsally. No drainable fluid collection. Extensive atherosclerotic vascular calcifications. No soft tissue gas. No focal intramuscular abnormality. Joint: Iood-ad-bcsrhcvc tricompartmental osteoarthritis of the knee joint. No osseous erosions. Left tibia/fibula and foot: Bones: No evidence of acute fracture or dislocation. No aggressive appearing osseous abnormality or periostitis. Soft Tissue: Extensive subcutaneous edema throughout the calf, ankle and foot. Focal area of increased soft tissue swelling within the lateral dorsal forefoot, without drainable fluid collection in this region, possibly related to underlying hematoma or phlegmon (series 8/image 430 and series 609/image 155). Focal area of non enhancement within the plantar foot soft tissues may reflect tissue necrosis (series 8/image 417 and series 609/image 117). Small ulceration within the lateral ankle skin with adjacent focus of soft tissue gas (series 8/images 363-367). Visualized portions of a popliteal bypass graft appear occluded. No focal intramuscular abnormality. Joint: Moderate to severe osteoarthritis of the knee joint. No osseous erosions. Geovanny Galindo MD - 08/06/2024 EXAMINATION: CT OF THE RIGHT TIBIA AND FIBULA WITH CONTRAST; CT OF THE LEFT FOOT WITH CONTRAST; CT OF THE LEFT TIBIA AND FIBULA WITH CONTRAST; CT OF THE RIGHT FOOT WITH CONTRAST 08/06/2024 4:06 pm TECHNIQUE: CT of the right tibia and fibula was performed with the administration of intravenous contrast. Multiplanar reformatted images are provided for review. Automated exposure control, iterative reconstruction, and/or weight based adjustment of the mA/kV was utilized to reduce the radiation dose to as low as reasonably achievable.; CT of the left foot was performed with the administration of intravenous contrast. Multiplanar reformatted images are provided for review. Automated exposure control, iterative reconstruction, and/or weight based adjustment of the mA/kV was utilized to reduce the radiation dose to as low as reasonably achievable.; CT of the left tibia and fibula was performed with the administration of intravenous contrast. Multiplanar reformatted images are provided for review. Automated exposure control, iterative reconstruction, and/or weight based adjustment of the mA/kV was utilized to reduce the radiation dose to as low as reasonably achievable.; CT of the right foot was performed with the administration of intravenous contrast. Multiplanar reformatted images are provided for review. Automated exposure control, iterative reconstruction, and/or weight based adjustment of the mA/kV was utilized to reduce the radiation dose to as low as reasonably achievable. COMPARISON: 01/02/2024 HISTORY ORDERING SYSTEM PROVIDED HISTORY: falls / wounds TECHNOLOGIST PROVIDED HISTORY: falls / wounds Additional Contrast?->1; ORDERING SYSTEM PROVIDED HISTORY: wounds / falls TECHNOLOGIST PROVIDED HISTORY: wounds / falls Additional Contrast?->1 FINDINGS: Right tibia/fibula and foot: Bones: No evidence of acute fracture or dislocation. No aggressive appearing osseous abnormality or periostitis. Plantar calcaneal spur. Soft Tissue: Severe subcutaneous edema throughout the lower calf, ankle and foot most pronounced dorsally. No drainable fluid collection. Extensive atherosclerotic vascular calcifications. No soft tissue gas. No focal intramuscular abnormality. Joint: Iyqv-jm-vpfkljzn tricompartmental osteoarthritis of the knee joint. No osseous erosions. Left tibia/fibula and foot: Bones: No evidence of acute fracture or dislocation. No aggressive appearing osseous abnormality or periostitis. Soft Tissue: Extensive subcutaneous edema throughout the calf, ankle and foot. Focal area of increased soft tissue swelling within the lateral dorsal forefoot, without drainable fluid collection in this region, possibly related to underlying hematoma or phlegmon (series 8/image 430 and series 609/image 155). Focal area of non enhancement within the plantar foot soft tissues may reflect tissue necrosis (series 8/image 417 and series 609/image 117). Small ulceration within the lateral ankle skin with adjacent focus of soft tissue gas (series 8/images 363-367). Visualized portions of a popliteal bypass graft appear occluded. No focal intramuscular abnormality. Joint: Moderate to severe osteoarthritis of the knee joint. No osseous erosions. IMPRESSION: CT right tibia/fibula and foot: 1. No acute fracture or CT evidence of osteomyelitis. 2. Extensive subcutaneous edema throughout the lower extremity which may represent cellulitis. No drainable fluid collection or soft tissue gas identified. 3. Additional findings, as above. CT left tibia/fibula and foot: 1. Extensive lower extremity subcutaneous edema which may reflect cellulitis. Focal area of non enhancement within the plantar heel soft tissues possibly representing tissue necrosis. No drainable fluid collection identified in this region. MR follow-up may be useful as clinically warranted. 2. Focally increased superficial soft tissue edema within the lateral dorsal forefoot possibly representing phlegmon or small hematoma. No drainable fluid collection identified in this region at this time. 3. Small skin ulceration overlying the lateral malleolus with subjacent focus of subcutaneous air. No gross evidence of necrotizing fasciitis. 4. No acute fracture or CT evidence of osteomyelitis. [facility] [email or web address] Panel InformationOrdered By: Geovanny Melo on 08-06-2024 [facility] [email or web address] Work Phone: Procalcitoninon [id number] and review of laboratory resultsAbnormalHealthsouth Medical CenterProcalcitonin [Mass/Vol]0.14 ng/mLHigh0.00 - 0.09 ng/mLCritical access hospital on above: Suspected Sepsis: <0.50 ng/mL Low likelihood of sepsis. 0.50-2.00 ng/mL Increased likelihood of sepsis. Antibiotics encouraged. >2.00 ng/mL High risk of sepsis/shock. Antibiotics strongly encouraged. Suspected Lower Resp Tract Infections: <0.24 ng/mL Low likelihood of bacterial infection. >0.24 ng/mL Increased likelihood of bacterial infection. Antibiotics encouraged. With successful antibiotic therapy, PCT levels should decrease rapidly. (Half- life of 24 to 36 hours.) Procalcitonin values from samples collected within the first 6 hours of systemic infection may still be low. Retesting may be indicated. Values from day 1 and day 4 can be entered into the Change in Procalcitonin Calculator (www.rdgyhl-kpu-xjmbkwfmka.com) to determine the patient's Mortality Risk Prognosis In healthy neonates, plasma Procalcitonin (PCT) concentrations increase gradually after , reaching peak values at about 24 hours of age then decrease to normal values below 0.5 ng/mL by 48-72 hours of age. Healthsouth Medical CenterProcalcitonin0.14 ng/mLHigh0.00-0.09[facility] on above:Result Comment: Suspected Sepsis: <0.50 ng/mL Low likelihood of sepsis. 0.50-2.00 ng/mL Increased likelihood of sepsis. Antibiotics encouraged. >2.00 ng/mL High risk of sepsis/shock. Antibiotics strongly encouraged. Suspected Lower Resp Tract Infections: <0.24 ng/mL Low likelihood of bacterial infection. >0.24 ng/mL Increased likelihood of bacterial infection. Antibiotics encouraged. With successful antibiotic therapy, PCT levels should decrease rapidly. (Half-life of 24 to 36 hours.) Procalcitonin values from samples collected within the first 6 hours of systemic infection may still be low. Retesting may be indicated. Values from day 1 and day 4 can be entered into the Change in Procalcitonin Calculator (www.fnteuc-pwh-ypvpyevmwm.[email or web address]) to determine the patient's Mortality Risk Prognosis In healthy neonates, plasma Procalcitonin (PCT) concentrations increase gradually after , reaching peak values at about 24 hours of age then decrease to normal values below 0.5 ng/mL by 48-72 hours of age.Performed By: #### CMPX, CDP #### [facility] [address] [place] [address] [address] Radio Technician: SERENE Mckenzieound Gram stainon [id number] and review of laboratory resultsAbnormalHealthsouth Medical CenterMicroorganism or agent identified Nom (Unsp spec)< 10 EPITHELIAL CELLS/LPFAbnormalHealthsouth Medical CenterMicroorganism or agent identified Nom (Unsp spec)<10 NEUTROPHILS/LPF AbnormalAugusta Healthroorganism or agent identified Nom (Unsp spec)MIXED BACTERIAL MORPHOTYPES SEEN ON GRAM STAIN.[facility] Service comment (Unsp spec) [Interp]Site: [facility] CenterSpecimen Description.[facility] HospitalCT ABDOMEN AND PELVIS W CONTon 42-97-1623SO ABDOMEN AND PELVIS W CONTNoKeenan Private HospitalCT BRAIN WO CONTon [id number] BRAIN WO CONTNormFisher-Titus Medical CenterCT CERVICAL SPINE WO CONTon 53-03-5809GN CERVICAL SPINE WO CONTNormal St. Mary's Medical CenterCT CHEST W CONTon 15-24-5983IZ CHEST W CONTNormal St. Mary's Medical CenterXR KNEE RT 3 VWSon 91-04-7699TR KNEE RT 3 VWSNoKing's Daughters Medical Center OhioXR TIBIA FIBULA RT MIN 2 VWSon 10-20-0289IZ TIBIA FIBULA RT MIN 2 VWSXR TIBIA FIBULA RT MIN 2 VWS RIGHT TIBIA AND FIBULA 2 VIEW COMPARISON: HISTORY: . fall from bed, R lower leg pain IMPRESSION: No acute fracture or dislocation. Finalized by Ulises Carter MD on 07/25/2024 2:02 AMNormalProChildren's Medical Center Dallas AND AUTO DIFFon [id number] BASOPHIL0.3 X10E9/LHigh0.0-0.2 ProMUniversity of California, Irvine Medical CenterComment on above:Performed By: #### 2639-3, 2156-08, CBCA, 30438-4, PINR, CMP ####[facility] ([id number])[address] [place] [address] 08224STBLCEZG NEUTROPHIL8.3 X10E9/LHigh 1.5-6.6ProHca Houston Healthcare North CypressComment on above:Performed By: #### 2639-3, 2156-08, CBCA, 06702-6, PINR, CMP ####[facility] ([id number])[address] [place] [address] 31433Wnqmedzom/100 WBC (Bld)2.5 % NormalSt. Mary's Medical CenterComment on above:Performed By: #### 2639-3, 2156-08, CBCA, 28317-8, PINR, CMP ####[facility] ([id number])[address] [place] [address] 52542Lsjldgbzruk (Bld) [#/Vol]0.5 10*3/uLHigh0.0-0.4St. Mary's Medical CenterComment on above:Performed By: #### 2639-3, 2156-08, CBCA, 92340-0, PINR, CMP ####[facility] ([id number])[address] [place] [address] 80406Sgptypmacam/100 WBC (Bld)4.7 %[facility] Medical CenterComment on above:Performed By: #### 2639-3, 6, CBCA, 03761-4, PINR, CMP ####[facility] ([id number])[address] [place] [address] 67098Szzblfjnvpv distribution width (RBC) [Ratio]20.8 %High11.5-15.0[facility] Comment on above:Performed By: #### 2639-3, 6, CBCA, 39767-1, PINR, CMP ####[facility] ([id number])[address] [place] [address] 23914Lepkyeunwb (Bld) [Volume fraction]34.8 %Gdx27-61BjoUwehzlHca Houston Healthcare North CypressComment on above:Performed By: #### 2639-3, 2156-08, CBCA, 45246- 9, PINR, CMP ####[facility] ([id number])[address] [place] [address] 25064Tbyjjafkrq (Bld) [Mass/Vol]11.4 g/dLLow11.7-15.5 ProMedica [facility] Park HospitaledicRobert F. Kennedy Medical CenterComment on above:Performed By: #### 2639-3, 2156-08, CBCA, 67539-5, PINR, CMP ####[facility] ([id number])[address] [place] [address] 16421Uscsfawptgj (Bld) [#/Vol]1.5 10*3/uL Normal1.0-3.5ProMedica Miller Children'S HospitalComment on above:Performed By: #### 2639- 3, 2156-08, CBCA, 90784-0, PINR, CMP ####[facility] ([id number] 2)[address] [place] [address] 37067Uxrybyjtsnl/100 WBC (Bld) 13.2 %NormalSt. Mary's Medical CenterComment on above:Performed By: #### 2639- 3, 2156-08, CBCA, 25862-5, PINR, CMP ####[facility] ([id number] 2)[address] [place] [address] 43197KTM (RBC) [Entitic mass] 27.2 kpUwrvvx72-97ZuxTmcsybHca Houston Healthcare North CypressComment on above:Performed By: #### 2639-3, 2156-08, CBCA, 03609-9, PINR, CMP ####[facility] ([id number])[address] [place] [address] 61565LCGZ (RBC) [Mass/Vol]32.9 g/lBRqhrfe84-14QinQkpgawHca Houston Healthcare North CypressComment on above: Performed By: #### 2639-3, 6, CBCA, 97681-7, PINR, CMP ####[facility] ([id number])[address] [place] [address] 70426JEC (RBC) [Entitic vol]83 eQFshlfg98-135DvbExcvnl Fremont HospitalComment on above: Performed By: #### 2639-3, 2156-08, CBCA, 75874-6, PINR, CMP ####[facility] ([id number])[address] [place] [address] 74034 Monocytes (Bld) [#/Vol]0.9 10*3/uLNormal0-0.9St. Mary's Medical CenterComment on above:Performed By: #### 2639-3, 2156-08, CBCA, 04048-8, PINR, CMP ####[facility] ([id number])[address] [place] [address] 96657Mvsjdmjev/100 WBC (Bld)8.2 %NormalProHca Houston Healthcare North CypressComment on above:Performed By: #### 2639-3, 2156-08, CBCA, 86184-9, PINR, CMP ####[facility] ([id number])[address] [place] [address] 26195Kvtfchfcehm/100 WBC (Bld)71.4 %NormalProHca Houston Healthcare North CypressComment on above:Performed By: #### 2639-3, 6, CBCA, 37373-4, PINR, CMP ####[facility] ([id number])[address] [place] [address] 31410Kcznazvz mean volume (Bld) [Entitic vol]6.8 fLLow7-12ProMedica Miller Children'S HospitalComment on above:Performed By: #### 2639-3, 2156-08, CBCA, 82019-6, PINR, CMP ####[facility] ([id number])[address] [place] [address] 92178Xgoaubigz (Bld) [#/Vol]465 10*3/nRXbym464-537ZusNujexiHca Houston Healthcare North CypressComment on above:Performed By: #### 2639-3, 2156-08, CBCA, 86031- 9, PINR, CMP ####[facility] ([id number])[address] [place] [address] 54708OZX COUNT4.20 X10E12/LNormal3.80-5.20St. Mary's Medical CenterComment on above:Performed By: #### 2639-3, 2156-08, CBCA, 74890- 9, PINR, CMP ####[facility] ([id number])[address] [place] [address] 02690DUH (Bld) [#/Vol]11.6 10*3/uLHigh4.0-11.0St. Mary's Medical CenterComment on above:Performed By: #### 2639-3, 2156-08, CBCA, 17892- 9, PINR, CMP ####[facility] ([id number])[address] [place] [address] 56417HI [Catalytic activity/Vol]on 05-33-0892MWK23 U/L Anetqb21-125CoxUvjmkcHca Houston Healthcare North CypressComment on above:Performed By: #### 2639- 3, 2157-6, CBCA, 54716-8, PINR, CMP ####[facility] ([id number] 2)[address] [place] [address] 13063XJVYYMZOVEXQK METABOLIC PANELon 69-04-4428Ootrozk [Mass/Vol]3.2 g/dLNormal3.2-5.3ProMedica Miller Children'S HospitalComment on above:Performed By: #### 2639-3, 2156-6, CBCA, 28041-7, PINR, CMP ####[facility] ([id number])[address] [place] [address] 01467PZK [Catalytic activity/Vol]89 U/JJcjjpn04-919UruTnvvqeSt. Mary's Medical CenterComment on above:Performed By: #### 2639-3, 2156-6, CBCA, 54363- 9, PINR, CMP ####[facility] ([id number])[address] [place] [address] 21725ZHP [Catalytic activity/Vol]15 U/LNormal0-31 St. Mary's Medical CenterComment on above:Performed By: #### 2639-3, 6, CBCA, 54257-6, PINR, CMP ####[facility] ([id number])[address] [place] [address] 31394Wkrcs gap [Moles/Vol]9 mmol/LNormal5-15 [facility]. [facility] Medical CenterComment on above:Performed By: #### 2639-3, 2156-6, CBCA, 21279-6, PINR, CMP ####[facility] ([id number])[address] [place] [address] 55464RBS [Catalytic activity/Vol]12 U/L Normal0-41St. [facility] Medical CenterComment on above:Performed By: #### 2639-3, 2156-6, CBCA, 26340-0, PINR, CMP ####[facility] ([id number])[address] [place] [address] 81392Ueohmzhpc [Mass/Vol]0.6 mg/dL Normal0.3-1.2PKeenan Private HospitalComment on above:Performed By: #### 2639- 3, 6, CBCA, 57882-2, PINR, CMP ####[facility] ([id number])[address] [place] [address] 84706Oozswrs [Mass/Vol]8.9 mg/dL Normal8.5-10.5PKeenan Private HospitalComment on above:Performed By: #### 2639-3, 2156-08, CBCA, 75379-4, PINR, CMP ####[facility] ([id number])[address] [place] [address] 48892Mxofguyb [Moles/Vol]101 mmol/VYdkhfp40-915BtbEhdcrfHca Houston Healthcare North CypressComment on above: Performed By: #### 2639-3, 2156-08, CBCA, 46604-7, PINR, CMP ####[facility] ([id number])[address] [place] [address] 30677BL2 [Moles/Vol]24 mmol/IZqfhyq60-68ZlsOpgvhzKeenan Private HospitalComment on above: Performed By: #### 2639-3, 2156-08, CBCA, 82831-2, PINR, CMP ####[facility] ([id number])[address] [place] [address] 37281 Creatinine [Mass/Vol]0.98 mg/dLNormal0.40-1.00ProHca Houston Healthcare North CypressComment on above:Result Comment: METHOD TRACEABLE TO IDMS STANDARDPerformed By: #### 2639-3, 6, CBCA, 33288-5, PINR, CMP ####[facility] ([id number])[address] [place] [address] 02394KAH/1.73 sq M.predicted among non-blacks MDRD (S/P/Bld) [Vol rate/Area]64 mL/min/{1.73_m2} Normal>59ProHca Houston Healthcare North CypressComment on above:Result Comment: Reported eGFR is based on theCKD-EPI 2020 equation that doesnot use a race coefficient. Performed By: #### 2639-3, 2156-08, CBCA, 58300-2, PINR, CMP ####[facility] ([id number])[address] [place] [address] 27016Tjwzsds [Mass/Vol]96 mg/mSSeugbg30-84EvjGppyzeHca Houston Healthcare North CypressComment on above: Performed By: #### 2639-3, 2156-08, CBCA, 07620-4, PINR, CMP ####[facility] ([id number])[address] [place] [address] 31424 Potassium [Moles/Vol]3.5 mmol/LNormal3.5-5.0ProHca [facility] Healthcare North CypressComment on above:Performed By: #### 2639-3, 2156-08, CBCA, 74119-3, PINR, CMP ####[facility] ([id number])[address] [place] [address] 20095Jdelias [Mass/Vol]6.5 g/dLNormal6.0-8.0ProHca [facility] Healthcare North CypressComment on above:Performed By: #### 9-3, 2156-08, CBCA, 92565-6, PINR, CMP ####[facility] ([id number])[address] [place] [address] 42665Krqcxp [Moles/Vol]134 mmol/KXwxslk465-436EzkKlruvf [facility]remont HospitalComment on above:Performed By: #### 2639-3, 2156-08, CBCA, 35320-7, PINR, CMP ####[facility] ([id number])[address] [place] [address] 51811Fhjg nitrogen [Mass/Vol]12 mg/dLNormal5-27ProHca [facility] Healthcare North CypressComment on above:Performed By: #### 2639-3, 2156-6, CBCA, 18214-8, PINR, CMP ####[facility] ([id number])[address] [place] [address] 77453Czyiednkh [Mass/Vol]on 55-94-5372SLKFE ENVKNSNFT17.7 ng/mL Esjbwe73.3-65.8ProHca [facility] Healthcare North CypressComment on above:Performed By: #### 2639-3, 2156-6, CBCA, 40417-0, PINR, CMP ####[facility] ([id number])[address] [place] [address] 72359TBIGBXW AND INRon 07-02-2814MTW Coag (PPP) [Relative time]1.0 {INR}Normal0.9-1.2PKeenan Private HospitalComchelsea hospital on above:Performed By: #### 2639-3, 6, CBCA, 80116-2, PINR, CMP ####[facility] ([id number])[address] [place] [address] 03322PO Coag (PPP) [Time]11.5 sNormal9.8-13.2PKeenan Private HospitalComchelsea hospital on above:Result Comment: NEW REFERENCE RANGEPerformed By: #### 2639-3, 2156-6, CBCA, 19132-9, PINR, CMP ####[facility] ([id number])[address] [place] [address] 87797sJYU Coag (PPP) [Time]on 02-24-4023fMGL Coag (Bld) [Time]31 wGgcxtk28-63DuvSgipusHca Houston Healthcare North CypressComchelsea hospital on above:Result Comment: NEW REFERENCE RANGEPerformed By: #### 2639-3, 2156-6, CBCA, 55540-6, PINR, CMP ####[facility] ([id number])[address] [place] [address], [place] [address]ZLS AND AUTO DIFF on 67-05-1649XIDSCUNT BASOPHIL0.0 X10E9/LNormal0.0-0.2PTerrebonne General Medical Centerica [facility] Comment on above:Performed By: #### 42634-2, CMP, CBCA ####[facility] ([id number])[address] [place] [address] 99373OHYRUIDA MHEXYAXYET22.7 X10E9/LHigh1.5-6.6ProHca Houston Healthcare North CypressComment on above: Performed By: #### 87112-6, CMP, CBCA ####[facility] ([id number])[address] [place] [address] 32155Tfhgqikbb/100 WBC (Bld)0.1 %NormalProHca Houston Healthcare North CypressComment on above:Performed By: #### 91183-4, CMP, CBCA ####[facility] ([id number])[address] [place] [address] 51043Csbrjchzxaz (Bld) [#/Vol]0.0 10*3/uLNormal 0.0-0.4St. [facility]'s Medical CenterComment on above:Performed By: #### 57609-9, CMP, CBCA ####[facility] ([id number])[address] [place] [address] 40888Wwczpjrhqnn/100 WBC (Bld)0.0 %NormalProHca Houston Healthcare North CypressComment on above:Performed By: #### 28028-3, CMP, CBCA ####[facility] ([id number])[address] [place] [address] 43530Lcangqhhrfo distribution width (RBC) [Ratio]20.8 %High11.5-15.0ProHca [facility] Healthcare North CypressComment on above:Performed By: #### 77529-6, CMP, CBCA ####[facility] ([id number])[address] [place] [address] 16466Kaniwxiead (Bld) [Volume fraction]36.0 %Avumie91-78 ProMUniversity of California, Irvine Medical CenterComment on above:Performed By: #### 32274-4, CMP, CBCA ####[facility] ([id number])[address] [place] [address] 23975Ulwsjdzyua (Bld) [Mass/Vol]11.6 g/dLLow11.7-15.5PKeenan Private HospitalComment on above:Performed By: #### 94223-9, CMP, CBCA ####[facility] ([id number])[address] [place] [address] 48642Dmxrdfjvvtm (Bld) [#/Vol]0.4 10*3/uLLow1.0-3.5PKeenan Private HospitalComment on above:Performed By: #### 27943-0, CMP, CBCA ####[facility] ([id number])[address] [place] [address] 73939Byrwfnonzcd/100 WBC (Bld)3.1 %NormalSt. Mary's Medical CenterComment on above:Performed By: #### 54204-1, CMP, CBCA ####[facility] ([id number])[address] [place] [address] 24269ZSF (RBC) [Entitic mass]26.9 cgLsk22-95XnpFojhogHca Houston Healthcare North CypressComment on above:Performed By: #### 73686-9, CMP, CBCA ####[facility] ([id number])[address] [place] [address] 25388SMIN (RBC) [Mass/Vol]32.3 g/pANaokux09-16NnzSelfolHca Houston Healthcare North CypressComment on above: Performed By: #### 04022-0, CMP, CBCA ####[facility] ([id number])[address] [place] [address], [place] [address]XJU (RBC) [Entitic vol]83 sPEzdefb39-843NrmYexiesSt. Mary's Medical CenterComment on above: Performed By: #### 68990-4, CMP, CBCA ####[facility] ([id number])[address] [place] [address] 06598Mhycczpzb (Bld) [#/Vol]0.2 10*3/uLNormal0-0.9St. Mary's Medical CenterComment on above: Performed By: #### 44298-3, CMP, CBCA ####[facility] ([id number])[address] [place] [address] 26004Fejpuqwzx/100 WBC (Bld)1.4 %NormalSt. Mary's Medical CenterComment on above:Performed By: #### 88963-1, CMP, CBCA ####[facility] ([id number])[address] [place] [address] [place] [address]Xqirxnehlnb/100 WBC (Bld)95.4 %Normal St. [facility]'s Medical CenterComment on above:Performed By: #### 03741-9, CMP, CBCA ####[facility] ([id number])[address] [place] [address] 06695Gczsbyks mean volume (Bld) [Entitic vol]7.[address]7-12 [address] [facility] Medical CenterComment on above:Performed By: #### 13306-8, CMP, CBCA ####[facility] ([id number])[address] [place] [address] [place] [address]Ojzwxhpzh (Bld) [#/Vol]295 10*3/vSPtjium768-796SkiGboikf [facility] HospitalComment on above:Performed By: #### 85014-4, CMP, CBCA ####[facility] ([id number])[address] [place] [address] 16906CPE COUNT4.32 X10E12/LNormal3.80-5.20ProHca [facility] Healthcare North CypressComment on above:Performed By: #### 77304-7, CMP, CBCA ####[facility] ([id number])[address] [place] [address] 17739SZV (Bld) [#/Vol]14.4 10*3/uLHigh4.0-11.0ProHca [facility] Healthcare North CypressComment on above:Performed By: #### 98123-7, CMP, CBCA ####[facility] ([id number])[address] [place] [address] 49563FSXBQGTDMWIND METABOLIC PANELon 52-42-2542Hwgahdm [Mass/Vol]2.7 g/dLLow3.2-5.3PKeenan Private HospitalComment on above:Performed By: #### 30153-8, CMP, CBCA ####[facility] ([id number])[address] [place] [address] 33535ZOY [Catalytic activity/Vol]84 U/MUszioa61-386LnxZopwegSt. Mary's Medical CenterComment on above:Performed By: #### 13359-5, CMP, CBCA ####[facility] ([id number])[address] [place] [address] 26513PGW [Catalytic activity/Vol]10 U/LNormal0-31PKeenan Private HospitalComment on above:Performed By: #### 01189-6, CMP, CBCA ####[facility] ([id number])[address] [place] [address] 31918Znqjl gap [Moles/Vol]12 mmol/LNormal5-15ProHca [facility] Healthcare North CypressComment on above:Performed By: #### 90234-9, CMP, CBCA ####[facility] ([id number])[address], [place], [place] [address]XXS [Catalytic activity/Vol]12 U/LNormal0-41[facility] Comment on above:Performed By: #### 18164-5, CMP, CBCA ####[facility] ([id number])[address] [place] [address], [place] [address] Bilirubin [Mass/Vol]0.3 mg/dLNormal0.3-1.2PKeenan Private HospitalComment on above:Performed By: #### 83593-4, CMP, CBCA ####[facility] ([id number])[address] [place] [address], [place] [address]Wmuzzeu [Mass/Vol]8.1 mg/dLLow8.5-10.5PKeenan Private HospitalComment on above: Performed By: #### 15148-2, CMP, CBCA ####[facility] ([id number])[address] [place] [address], [place] [address]Nhnvrlwn [Moles/Vol]99 mmol/FNrfkmh02-476DbxEqysoxHca Houston Healthcare North CypressComment on above: Performed By: #### 77290-7, CMP, CBCA ####[facility] ([id number])[address] [place] [address], [place] [address]IF3 [Moles/Vol]24 mmol/PGsudps20-42HmuKmhgxhKeenan Private HospitalComment on above:Performed By: #### 44823-7, CMP, CBCA ####[facility] ([id number])[address] [place] [address], [place] [address]Qxpgspczgq [Mass/Vol]0.74 mg/dLNormal 0.40-1.00St. [facility] Medical CenterComment on above:Result Comment: METHOD TRACEABLE TO IDMS STANDARDPerformed By: #### 85928-4, CMP, CBCA ####[facility] ([id number])[address] [place] [address], [place] [address]jCDD (CKD-EPI) NON-RACE DEPENDENT>90Normal>59ProHca [facility] Comment on above:Result Comment: Reported eGFR is based on theCKD-EPI 2020 equation that doesnot use a race coefficient.Performed By: #### 66465-1YULISA, PRIYANK ####[facility] ([id number])[address] [place] [address], [place] [address]Gwoxmks [Mass/Vol]208 mg/iBMdxv23-24JtdYleetzHca Houston Healthcare North CypressComment on above:Performed By: #### 35475-5, CMP, CBCA ####[facility] ([id number])[address] [place] [address] 94730Pslescyjn [Moles/Vol]4.3 mmol/LNormal3.5-5.0[facility] Comment on above:Performed By: #### 69010-3YULISA, PRIYANK ####[facility] ([id number])[address] [place] [address] 01324Jesnpme [Mass/Vol]6.1 g/dLNormal6.0-8.0ProHca [facility] Healthcare North CypressComment on above: Performed By: #### 80197-3YULISA, CBCA ####[facility] ([id number])[address] [place] [address] 75474Aqucox [Moles/Vol]135 mmol/LTiijdi284-979TwiKdydcw [facility] HospitalComment on above: Performed By: #### 54153-0, YULISA, CBCA ####[facility] ([id number])[address] [place] [address] 33776Xlkl nitrogen [Mass/Vol]23 mg/dLNormal5-27ProHca [facility] Healthcare North CypressComment on above:Performed By: #### 44026-3, YULISA, CBCA ####[facility] ([id number])[address] [place] [address], [place] [address]LZI [Mass/Vol]on 07-16-2024 REACTIVE PROTEIN2.9 mg/dLHigh0.000-0.744PKeenan Private HospitalComment on above: Performed By: #### 1987-07, 4091-05 ####[facility] ([id number])[address] [place] [address] 90309Asqxpmx Glucometer (BldC) [Mass/Vol]on 86-28-5874Mlqdqgi [Mass/Vol]231 mg/eFRhyc56-79QguFmsqisHca Houston Healthcare North CypressGlucose [Mass/Vol]219 mg/bLQufl29-01ZfxHzbtqsHca Houston Healthcare North CypressMAGNESIUM on 63-21-5145Qyesyufro [Mass/Vol]2.3 mg/dLNormal1.8-2.6ProHca [facility] Healthcare North CypressComment on above:Performed By: #### , CMP, CBCA ####[facility] ([id number])[address] [place] [address] 11750Rzxkbdbhmp trough [Mass/Vol]on 94-42-0630QWBUXPUDHF JWUWHT65.6 ug/mLNormal 5.0-20.0ProHca [facility] Healthcare North CypressComment on above:Performed By: #### 1987-07, 4091-05 ####[facility] ([id number])[address] [place] [address] 25331UNE AND AUTO DIFFon 22-61-0606JLIRYRLA BASOPHIL0.0 X10E9/L Normal0.0-0.2PKeenan Private HospitalComment on above:Performed By: #### , , CBCA, CMP, 27918-6 ####[facility] ([id number])[address] [place] [address] 63220WVHQFNCH OIZXOIBZND93.4 X10E9/L High1.5-6.6ProHca [facility] Healthcare North CypressComment on above:Performed By: #### 1987-07, , CBCA, CMP, 75104-5 ####[facility] ([id number])[address] [place] [address] 96795Jgvoqzidu/100 WBC (Bld)0.2 %Normal [facility] CenterComment on above:Performed By: #### 1987-07, , CBCA, CMP, 01304-7 ####[facility] ([id number])[address] [place] [address] 32947Lmdhsifrdmg (Bld) [#/Vol]0.0 10*3/uLNormal 0.0-0.4St. [facility] CenterComment on above:Performed By: #### 1987-07, , CBCA, CMP, 32841-6 ####[facility] ([id number])[address] [place] [address] 92859Zvruegzjyzs/100 WBC (Bld)0.0 %Normal [facility] CenterComment on above:Performed By: #### 1987-07, , CBCA, CMP, 39230-7 ####[facility] ([id number])[address] [place] [address] 12977Zlvchpbivvd distribution width (RBC) [Ratio] 20.1 %High11.5-15.0ProHca [facility] Healthcare North CypressComment on above:Performed By: #### 1987-07, , CBCA, CMP, 71867-3 ####[facility] ([id number])[address] [place] [address] 67630Ktsifddham (Bld) [Volume fraction]34.4 %Uxs68-64FokStoeobHca Houston Healthcare North CypressComment on above: Performed By: #### 1987-07, , CBCA, CMP, 63955-9 ####[facility] ([id number])[address] [place] [address] 20171 Hemoglobin (Bld) [Mass/Vol]11.0 g/dLLow11.7-15.5PKeenan Private Hospital Comment on above:Performed By: #### 1987-07, , CBCA, CMP, 22146-1 ####[facility] ([id number])[address] [place] [address] 79998Ctaosdidkcq (Bld) [#/Vol]0.4 10*3/uLLow1.0-3.5PKeenan Private HospitalComment on above:Performed By: #### 1987-07, , CBCA, CMP, 07296-0 ####[facility] ([id number])[address] [place] [address] 34717Cnmpynaqqgd/100 WBC (Bld)2.1 %NormalProHca Houston Healthcare North CypressComment on above:Performed By: #### 1987-07, , CBCA, CMP, 88743-1 ####[facility] ([id number])[address] [place] [address] 45792OQA (RBC) [Entitic mass]26.9 zfZqo97-64IypKtepppHca Houston Healthcare North CypressComment on above:Performed By: #### 1987-07, , CBCA, CMP, 01054-8 ####[facility] ([id number])[address] [place] [address] 69324DRGV (RBC) [Mass/Vol]31.9 g/aJUei16-97MbdKgttikHca Houston Healthcare North CypressComment on above:Performed By: #### 1987-07, , CBCA, CMP, 49571-9 ####[facility] ([id number])[address] [place] [address] 46097YJL (RBC) [Entitic vol]84 xNKpjriq44-540AllPkogwj [facility] HospitalComment on above:Performed By: #### 1987-07, , CBCA, CMP, 91478-5 ####[facility] ([id number])[address] [place] [address] 47334Ufbepzogj (Bld) [#/Vol]0.3 10*3/uLNormal0-0.9ProHca [facility] Healthcare North CypressComment on above:Performed By: #### 1987-07, , CBCA, CMP, 84413-7 ####[facility] ([id number])[address] [place] [address] 04429Cjxubnlax/100 WBC (Bld)1.6 %NormalProHca Houston Healthcare North CypressComment on above:Performed By: #### 1987-07, , CBCA, CMP, 35512-3 ####[facility] ([id number])[address] [place] [address] 85886Nlfpcolcwpb/100 WBC (Bld)96.1 %NormalProHca Houston Healthcare North CypressComment on above:Performed By: #### 1987-07, , CBCA, CMP, 29304-8 ####[facility] ([id number])[address] [place] [address] 82020Dboqjcqh mean volume (Bld) [Entitic vol]7.0 fLNormal7-12 [facility] Children'S HospitalComment on above:Performed By: #### 1987-07, , CBCA, CMP, 80485-2 ####[facility] ([id number])[address] [place] [address] 86557Chwdpgbqy (Bld) [#/Vol]290 10*3/uLNormal 150-450ProHca [facility] Healthcare North CypressComment on above:Performed By: #### 1987-07, , CBCA, CMP, 11948-2 ####[facility] ([id number])[address] [place] [address] 00113MRO COUNT4.09 X10E12/LNormal3.80-5.20 [facility] CenterComment on above:Performed By: #### 1987-07, , CBCA, CMP, 72437-5 ####[facility] ([id number])[address] [place] [address] 28214SUF (Bld) [#/Vol]19.1 10*3/uLHigh4.0-11.0 [facility] CenterComment on above:Performed By: #### 1987-07, , CBCA, CMP, 77677-1 ####[facility] ([id number])[address] [place] [address] 70541XDZQHTTSHDDKY METABOLIC PANELon 07-15-2024 Albumin [Mass/Vol]2.6 g/dLLow3.2-5.3PKeenan Private HospitalComment on above: Performed By: #### 1987-07, , CBCA, CMP, 72580-7 ####[facility] ([id number])[address] [place] [address] 25504DCY [Catalytic activity/Vol]87 U/JZttlds24-425VgaXukvywSt. Mary's Medical CenterComment on above:Performed By: #### 1987-07, , CBCA, CMP, 41921-8 ####[facility] ([id number])[address] [place] [address] 80430JHC [Catalytic activity/Vol]13 U/LNormal0-31PKeenan Private Hospital Comment on above:Performed By: #### 1987-07, , CBCA, CMP, 32292-1 ####[facility] ([id number])[address] [place] [address] 95105Bjnlw gap [Moles/Vol]10 mmol/LNormal5-15ProHca [facility] Healthcare North CypressComment on above:Performed By: #### 1987-07, , CBCA, CMP, 55814-2 ####[facility] ([id number])[address] [place] [address] 56832NQI [Catalytic activity/Vol]13 U/LNormal0-41ProHca [facility] Healthcare North CypressComment on above:Performed By: #### 1987-07, , CBCA, CMP, 40724-4 ####[facility] ([id number])[address] [place] [address] 26925Ijqfkczkl [Mass/Vol]0.4 mg/dLNormal0.3-1.2PKeenan Private HospitalComment on above:Performed By: #### 1987-07, , CBCA, CMP, 07793-3 ####[facility] ([id number])[address] [place] [address] 07217Ykuvvqw [Mass/Vol]8.0 mg/dLLow8.5-10.5PKeenan Private HospitalComment on above:Performed By: #### 1987-07, , CBCA, CMP, 50604-6 ####[facility] ([id number])[address] [place] [address] 38088Gceixzyw [Moles/Vol]98 mmol/ZVmdckz54-398HftEzpvjuHca Houston Healthcare North CypressComment on above:Performed By: #### 1987-07, , CBCA, CMP, 46601-9 ####[facility] ([id number])[address] [place] [address] 44810AU4 [Moles/Vol]28 mmol/VFbiiic16-49WwsCtayzkKeenan Private HospitalComment on above:Performed By: #### 1987-07, , CBCA, CMP, 56726-8 ####[facility] ([id number])[address] [place] [address] 72956Uzfonhmjlc [Mass/Vol]0.70 mg/dLNormal0.40-1.00St. Mary's Medical CenterComment on above:Result Comment: METHOD TRACEABLE TO IDMS STANDARDPerformed By: #### 1987-07, , CBCA, CMP, 47958-9 ####[facility] ([id number])[address] [place] [address] 84931eFZD (CKD-EPI) NON-RACE DEPENDENT>90Normal>59ProHca [facility]ress Comment on above:Result Comment: Reported eGFR is based on theCKD-EPI 2020 equation that doesnot use a race coefficient.Performed By: #### 1987-07, , CBCA, CMP, 13104-2 ####[facility] ([id number])[address] [place] [address] 86835Alhhgyr [Mass/Vol]193 mg/kSOzfe67-57 [facility] Medical CenterComment on above:Performed By: #### 1987-07, , CBCA, CMP, 36358-7 ####[facility] ([id number])[address] [place] [address] 19300Mncdivsnd [Moles/Vol]4.5 mmol/LNormal3.5-5.0 [facility] Medical CenterComment on above:Performed By: #### 1987-07, , CBCA, CMP, 75072-1 ####[facility] ([id number])[address] [place] [address] 30144Nmezepz [Mass/Vol]6.0 g/dLNormal6.0-8.0 [facility] Medical CenterComment on above:Performed By: #### 1987-07, , CBCA, CMP, 81704-7 ####[facility] ([id number])[address] [place] [address] 06848Oajrcw [Moles/Vol]136 mmol/QChoahn101-318 [facility] CenterComment on above:Performed By: #### 1987-07, , CBCA, CMP, 52012-9 ####[facility] ([id number])[address] [place] [address] 02034Sxgj nitrogen [Mass/Vol]16 mg/dLNormal5-27 [facility] Medical CenterComment on above:Performed By: #### 1987-07, , CBCA, CMP, 70227-3 ####[facility] ([id number])[address] [place] [address] 87188MTI [Mass/Vol]on 07-15-2024 REACTIVE PROTEIN6.9 mg/dLHigh0.000-0.[address] [place], [place] [address]Comment on above: Performed By: #### 1987-07, , CBCA, CMP, 62564-1 ####[facility] ([id number])[address] [place] [address] 67251Cdtwpxn Glucometer (BldC) [Mass/Vol]on 23-24-5328Itwsyxl [Mass/Vol]244 mg/aSMqcm81-17 [facility] CenterGlucose [Mass/Vol]201 mg/cSVlmj59-78NotEpsdcdSt. Mary's Medical CenterGlucose [Mass/Vol]155 mg/hRVopv09-02LigHfokrcHca Houston Healthcare North CypressMAGNESIUM on 40-67-3511Hpvygnnbf [Mass/Vol]2.2 mg/dLNormal1.8-2.6St. [facility]'s Medical CenterComment on above:Performed By: #### 1987-07, , CBCA, CMP, 43163-4 ####[facility] ([id number])[address] [place] [address] [id number] FOOT LT W WO CONTon 42-08-4439TD FOOT LT W WO CONT NormalSt. Mary's Medical CenterMR FOOT RT W WO CONTon 26-69-0456PO FOOT RT W WO CONTSycamore Medical CenterMR LOWER LEG LT W WO CONTon 95-30-4454CF LOWER LEG LT W WO CONTSycamore Medical CenterMR LOWER LEG RT W WO CONT on 27-78-9505VV LOWER LEG RT W WO CONTSycamore Medical Center Procalcitonin IA [Mass/Vol]on 41-89-3904JZFQQXJKNQLLE3.08 ng/mLHigh<0.05 St. [facility]'s Medical CenterComment on above:Result Comment: NOTE<0.50 ng/mL - Low risk of severe sepsis and/or septic shock.<2.00 ng/mL -Recommend retesting within 6-24 hours.>2.00 ng/mL - High risk of sepsis and/or septic shock. Performed By: #### 1988-5, , CBCA, CMP, 73590-8 ####[facility] ([id number])[address] [place] [address] 13003 Vancomycin peak [Mass/Vol]on 08-07-6582NPTVFFHJVH PEAK41.5 ug/lVMytf34.00-40.00 [facility] Medical CenterComment on above:Performed By: #### 4090-7 ####[facility] ([id number])[address] [place] [address] 29434BLK AND AUTO DIFFon 51-18-6473SJMXSEGG BASOPHIL0.0 X10E9/LNormal0.0-0.2 [facility] Medical CenterComment on above:Performed By: #### CMP, CBCA, ####[facility] ([id number])[address] [place] [address] 34435GSQHAFIR WGOGYDQTFO86.7 X10E9/LHigh1.5-6.6[facility]. [facility] Medical CenterComment on above:Performed By: #### CMP, CBCA, ####[facility] ([id number])[address] [place] [address] 93584Qqbzgvezw/100 WBC (Bld)0.1 %NormalSt. Mary's Medical CenterComment on above:Performed By: #### CMP, CBCA, ####[facility] ([id number])[address] [place] [address] 34093Lifjulqxzfe (Bld) [#/Vol]0.0 10*3/uLNormal0.0-0.4[facility] Comment on above:Performed By: #### CMP, CBCA, ####[facility] ([id number])[address] [place] [address] 93738 Eosinophils/100 WBC (Bld)0.0 %[facility] Medical CenterComment on above: Performed By: #### CMP, CBCA, ####[facility] ([id number])[address] [place] [address] 93420Oceqynedzcy distribution width (RBC) [Ratio]20.9 %High11.5-15.0[facility] Comment on above:Performed By: #### YULISA, CBCA, ####[facility] ([id number])[address] [place] [address] 06706 Hematocrit (Bld) [Volume fraction]35.6 %Etxywf24-84XyvLmysxzSt. Mary's Medical Center Comment on above:Performed By: #### CMP, CBCA, ####[facility] ([id number])[address] [place] [address] 93679 Hemoglobin (Bld) [Mass/Vol]11.3 g/dLLow11.7-15.5PKe[facility]an [facility] Comment on above:Performed By: #### CMP, CBCA, ####[facility] ([id number])[address] [place] [address] 86253 Lymphocytes (Bld) [#/Vol]0.3 10*3/uLLow1.0-3.5Pro[facility] Miller Children'S HospitalComment on above:Performed By: #### CMP, CBCA, ####[facility] ([id number])[address] [place] [address] 86412Ynoifxziwcb/100 WBC (Bld)2.3 %NormalProHca Houston Healthcare North CypressComment on above:Performed By: #### CMP, CBCA, ####[facility] ([id number])[address] [place] [address] 09962UTX (RBC) [Entitic mass]26.8 pvLyw09-98 [facility] Children'S HospitalComment on above:Performed By: #### CMP, CBCA, ####[facility] ([id number])[address] [place] [address] 73765WGSS (RBC) [Mass/Vol]31.8 g/tUYpa03-52LpmJjzoguHca Houston Healthcare North CypressComment on above:Performed By: #### CMP, CBCA, ####[facility] ([id number])[address] [place] [address] 16749WVP (RBC) [Entitic vol]85 mCOjsodh79-951ZyuRfkwarSt. Mary's Medical CenterComment on above:Performed By: #### CMP, CBCA, ####[facility] ([id number])[address] [place] [address] 90085Rdkfkojss (Bld) [#/Vol]0.1 10*3/uLNormal0-0.9St. Mary's Medical CenterComment on above: Performed By: #### CMP, CBCA, ####[facility] ([id number])[address] [place] [address] 65475Nawauadzn/100 WBC (Bld)0.7 %NormalSt. Mary's Medical CenterComment on above:Performed By: #### CMP, CBCA, ####[facility] ([id number])[address] [place] [address] 85254Wxkdmvuvikk/100 WBC (Bld)96.9 %Normal St. Mary's Medical CenterComment on above:Performed By: #### YULISA, CBCA, ####[facility] ([id number])[address] [place] [address] 96954Fubzlzeq mean volume (Bld) [Entitic vol]7.[address]12 [address] [facility]'s Medical CenterComment on above:Performed By: #### YULISA, CBCA, ####[facility] ([id number])[address] [place] [address] 24041Hzcboopwd (Bld) [#/Vol]252 10*3/oWQsweja520-305VoiHfinsw [facility]ont HospitalComment on above:Performed By: #### YULISA, CBCA, ####[facility] ([id number])[address] [place] [address] 78815ZRW COUNT4.21 X10E12/LNormal3.80-5.20St. [facility]'s Medical CenterComment on above:Performed By: #### YULISA, CBCA, ####[facility] ([id number])[address] [place] [address] 54884HQD (Bld) [#/Vol]14.2 10*3/uLHigh4.0-11.0St. Mary's Medical CenterComment on above:Performed By: #### YULISA, CBCA, ####[facility] ([id number])[address] [place] [address] 89051WAMEOJSAVTCLI METABOLIC PANELon 62-38-3134Umuzqcj [Mass/Vol]2.7 g/dLLow3.2-5.3PKeenan Private HospitalComment on above:Performed By: #### PRIYANK MÁRQUEZ, ####[facility] ([id number])[address] [place] [address], [place] [address]FEW [Catalytic activity/Vol]93 U/IEfbqnr94-845WvqMnxzqlHca Houston Healthcare North CypressComment on above:Performed By: #### YULISA CBCAriana, ####[facility] ([id number])[address] [place] [address], [place] [address]AVF [Catalytic activity/Vol]14 U/LNormal0-31PKeenan Private HospitalComment on above:Performed By: #### PRIYANK MÁRQUEZ, ####[facility] ([id number])[address] [place] [address], [place] [address]Zobxy gap [Moles/Vol]10 mmol/LNormal5-15ProHca [facility] Healthcare North CypressComment on above:Performed By: #### YULISA CBCAriana, ####[facility] ([id number])[address] [place] [address], [place] [address]HCV [Catalytic activity/Vol]11 U/LNormal0-41ProH[facility] Comment on above:Performed By: #### PRIYANK MÁRQUEZ, ####[facility] ([id number])[address] [place] [address], [place] [address] Bilirubin [Mass/Vol]0.4 mg/dLNormal0.3-1.2PKeenan Private HospitalComment on above:Performed By: #### YULISA CBCA, ####[facility] ([id number])[address] [place] [address], [place] [address]Csvavos [Mass/Vol]8.0 mg/dLLow8.5-10.5PKeenan Private HospitalComment on above: Performed By: #### YULISA CBCAriana, ####[facility] ([id number])[address] [place] [address], [place] [address]Xzjinizw [Moles/Vol]103 mmol/JYxfrcq53-410VzcDecjepHca Houston Healthcare North CypressComment on above: Performed By: #### PRIYANK MÁRQUEZ, ####[facility] ([id number])[address] [place] [address], [place] [address]QX4 [Moles/Vol]25 mmol/EOhbjsm55-40HbnJycbdp [facility] HospitalComment on above:Performed By: #### PRIYANK MÁRQUEZ, ####[facility] ([id number])[address] [place] [address], [place] [address]Wsypozdcfo [Mass/Vol]0.73 mg/dLNormal 0.40-1.00St. [facility]'s Medical CenterComment on above:Result Comment: METHOD TRACEABLE TO IDMS STANDARDPerformed By: #### PRIYANK MÁRQUEZ, ####[facility] ([id number])[address] [place] [address], [place] [address]cPQO (CKD-EPI) NON-RACE DEPENDENT>90Normal>59ProHca [facility] Comment on above:Result Comment: Reported eGFR is based on theCKD-EPI 2020 equation that doesnot use a race coefficient.Performed By: #### PRIYANK MÁRQUEZ, ####[facility] ([id number])[address] [place] [address], [place] [address]Vaxqhgo [Mass/Vol]271 mg/hYDxen73-35ZiaFcxbfrHca Houston Healthcare North CypressComment on above:Performed By: #### PRIYANK MÁRQUEZ, ####[facility] ([id number])[address] [place] [address] [place] [address]Upmewowsc [Moles/Vol]4.0 mmol/LNormal3.5-5.0[facility] Comment on above:Performed By: #### PRIYANK MÁRQUEZ, ####[facility] ([id number])[address] [place] [address] 47509Aebpkfk [Mass/Vol]6.1 g/dLNormal6.0-8.0ProHca [facility] Healthcare North CypressComment on above: Performed By: #### PRIYANK MÁRQUEZ, ####[facility] ([id number])[address] [place] [address] 38174Wfbzse [Moles/Vol]138 mmol/RVzpsna648-233WomUvrewi [facility] HospitalComment on above: Performed By: #### PRIYANK MÁRQUEZ, ####[facility] ([id number])[address] [place] [address] 42983Pgtn nitrogen [Mass/Vol]13 mg/dLNormal5-27ProHca [facility] Healthcare North CypressComment on above:Performed By: #### PRIYANK MÁRQUEZ, ####[facility] ([id number])[address] [place] [address] 85994Fwznvbd Glucometer (BldC) [Mass/Vol]on 80-54-6757Lxgyykw [Mass/Vol]166 mg/yLKfqu09-68JuaJskbuqSt. Mary's Medical CenterGlucose [Mass/Vol]255 mg/wGPqwt08-07CeuLeyknwSt. Mary's Medical CenterGlucose [Mass/Vol]276 mg/kKAolx42-14MyrXgbvazSt. Mary's Medical CenterMAGNESIUMon 94-49-9647Yrecvvuqg [Mass/Vol]2.1 mg/dLNormal1.8-2.6St. [facility]'s Medical CenterComment on above: Performed By: #### PRIYANK MÁRQUEZ, ####[facility] ([id number])[address] [place] [address] 80496OMWOH METABOLIC PANLon 93-03-4187Cphbz gap [Moles/Vol]9 mmol/LNormal5-15ProHca [facility] Healthcare North CypressComment on above:Performed By: #### PRIYANK, 79407-8, BMP ####[facility] ([id number])[address] [place] [address] 97458#### HA1C ####[facility] [place] [facility] ([id number])[address] [facility], [address], [place] [address]Hiohnlq [Mass/Vol]8.6 mg/dLNormal8.5-10.5PKeenan Private HospitalComment on above:Performed By: #### PRIYANK, 71131-4, BMP ####[facility] ([id number])[address] [place] [address] 84505#### HA1C ####[facility] [facility] ([id number])[address] [facility], [address], [place] [address]Kneltyxx [Moles/Vol]103 mmol/CSvftxv90-245IksBwydqvHca Houston Healthcare North CypressComment on above:Performed By: #### PRIYANK, 43180-0, BMP ####[facility] ([id number])[address] [place] [address] 99601#### HAJp ####[facility] [facility] ([id number])[address] [facility], [address], [place] [address]XB7 [Moles/Vol]25 mmol/L Xbcmeu91-27YgvHazkdpKeenan Private HospitalComment on above:Performed By: #### PRIYANK, 28469-0, BMP ####[facility] ([id number])[address] [place] [address] 36814#### HA1C ####[facility] [place] [facility] ([id number])[address] [facility], [address], [place] [address]Ilbercimoh [Mass/Vol]0.79 mg/dLNormal0.40-1.00ProHca [facility] Healthcare North CypressComment on above:Result Comment: METHOD TRACEABLE TO IDMS STANDARDPerformed By: #### PRIYANK, 19841-1, BMP ####[facility] ([id number])[address] [place] [address] 43968#### HA1C ####[facility] [facility] ([id number])[address], [place] [address]NVV/1.73 sq M.predicted among non-blacks MDRD (S/P/Bld) [Vol rate/Area]83 mL/min/{1.73_m2}Normal>59 [facility]'S HospitalComment on above:Result Comment: Reported eGFR is based on theCKD-EPI 2020 equation that doesnot use a race coefficient.Performed By: #### PRIYANK 74193-1, BMP ####[facility] ([id number])[address] [place] [address] 11315#### HAJp ####[facility] [facility] ([id number])[address], [address] [place] [address] 62429Wbdptvf [Mass/Vol]104 mg/wSSuip43-47IeoOvfjmi [facility] Children'S HospitalComment on above:Performed By: #### RPIYANK 75561-5, BMP ####[facility] ([id number])[address] [place] [address] 13379#### HAJp ####[facility] [facility] ([id number])[address], [address] [place] [address] 09487Lthvfywkw [Moles/Vol]3.7 mmol/LNormal3.5-5.0Pro[facility] Children'S HospitalComment on above:Performed By: #### PRIYANK 91571-9, BMP ####[facility] ([id number])[address] [place] [address] 42402#### HA1C ####[facility] [facility] ([id number])[address], [place] [address]Numzto [Moles/Vol]137 mmol/NFztcki445-942ZmzEhnyth [facility] Grove HospitalComment on above:Performed By: #### CBCAriana, 76566-7, BMP ####[facility] ([id number])[address] [place] [address] 74460#### HA1C ####[facility] [facility] ([id number])[address], [address] [place] [address] 79523Gbin nitrogen [Mass/Vol]9 mg/dLNormal5-27ProHca [facility] Healthcare North CypressComment on above:Performed By: #### CBCA, 28412-8, BMP ####[facility] ([id number])[address] [place] [address] 87807#### HA1C ####[facility] [facility] ([id number])[address], [address] [place] [address] 56760VGNSN CULTUREon 07-13-2024 Bacteria identified Aer cx Nom (Bld)SPECIMEN NOTES SUBOPTIMAL VOLUME OF BLOOD COLLECTED, RESULTS MAY BE AFFECTED. CULTURE RESULTS NO GROWTH 5 DAYSNormalSt. Mary's Medical CenterComment on above:Performed By: #### 36995-2 ####[facility] [facility] ([id number])[address], [address] [place] [address] 26282Qyjwormo identified Aer cx Nom (Bld)CULTURE RESULTS NO GROWTH 5 DAYSNormalSt. Mary's Medical CenterCBC AND AUTO DIFFon 07-13-2024 ABSOLUTE BASOPHIL0.1 X10E9/LNormal0.0-0.2Pro[facility] Children'S HospitalComment on above:Performed By: #### CBCA, 37900-9, BMP ####[facility] ([id number])[address] [place] [address] 01347#### HA1C ####[facility] [facility] ([id number])[address], [address] [place] [address] 38321WXJAOVFF XTNCIYBTJH76.3 X10E9/LHigh1.5-6.6ProWayne Hospitalca [facility] Comment on above:Performed By: #### CBCAriana, 82779-0, BMP ####[facility] ([id number])[address] [place] [address] 93430#### HA1C ####[facility] [facility] ([id number])[address], [address], [place] [address]Ybvucacuu/100 WBC (Bld)0.9 %NormalSt. Mary's Medical Center Comment on above:Performed By: #### CBCAriana, 40506-3, BMP ####[facility] ([id number])[address] [place] [address] 82685#### HA1C ####[facility] [facility] ([id number])[address], [address], [place] [address]Vakdtdgnwex (Bld) [#/Vol]0.3 10*3/uLNormal0.0-0.4ProHca [facility] Healthcare North CypressComment on above:Performed By: #### CBCAriana, 83611-3, BMP ####[facility] ([id number])[address] [place] [address] 02271#### HAJp ####[facility] [facility] ([id number])[address], [address] [place] [address] 05397Nsirnguqasw/100 WBC (Bld) 1.9 %NormalSt. Mary's Medical CenterComment on above:Performed By: #### CBCAriana, 92487-9, BMP ####[facility] ([id number])[address] [place] [address] 00214#### HA1C ####[facility] ([id number])[address], [address], [place] [address]Xafjxusdqvo distribution width (RBC) [Ratio]21.0 %High11.5-15.0ProHca [facility] Healthcare North CypressComment on above:Performed By: #### PRIYANK, 56230-0, BMP ####[facility] ([id number])[address] [place] [address] 33953#### HA1C ####[facility] ([id number])[address], [address], [place] [address]Miaezwrgtl (Bld) [Volume fraction]36.3 %Gkyerh26-78BnyNhuypm [facility]'S HospitalComment on above:Performed By: #### PRIYANK, 48465-5, BMP ####[facility] ([id number])[address] [place] [address] 74558#### HA1C ####[facility] ([id number])[address], [address], [place] [address]Wmfqpzvxgu (Bld) [Mass/Vol]11.6 g/dLLow11.7-15.5 [facility]'S HospitalComment on above:Performed By: #### PRIYANK, 41631-9, BMP ####[facility] ([id number])[address] [place] [address] 22722#### HA1C ####[facility] ([id number])[address], [address], [place] [address]Idirqkifxgt (Bld) [#/Vol] 1.3 10*3/uLNormal1.0-3.5Pro[facility]'S HospitalComment on above:Performed By: #### PRIYANK, 80849-8, BMP ####[facility] ([id number])[address] [place] [address] 35409#### HA1C ####[facility] ([id number])[address], [address], [place] [address]Jchhdtvimfm/100 WBC (Bld)7.6 %NormalProWayne Hospitalca [facility] Children'S HospitalComment on above:Performed By: #### PRIYANK, 98797-5, BMP ####[facility] ([id number])[address] [place] [address] 77567#### HA1C ####[facility] ([id number])[address], [address] [place] [address] 27036DJQ (RBC) [Entitic mass] 26.7 hnYoy97-65QllPyddhjHca Houston Healthcare North CypressComment on above:Performed By: #### PRIYANK, 30310-0, BMP ####[facility] ([id number])[address] [place] [address] 18813#### HAJp ####[facility] ([id number])[address] [facility], [address] [place] [address] 70333TAWU (RBC) [Mass/Vol]31.9 g/tBWtr91-74LvzHuouzdHca Houston Healthcare North CypressComment on above:Performed By: #### PRIYANK, 31751-1, BMP ####[facility] ([id number])[address] [place] [address] 37366#### HAJp ####[facility] ([id number])[address], [address] [place] [address] 65049BAW (RBC) [Entitic vol]84 jWUbwvhd41-618WojYcmtwp [facility] HospitalComment on above:Performed By: #### PRIYANK, 37507-5, BMP ####[facility] ([id number])[address] [place] [address] 60785#### HA1C ####[facility] ([id number])[address], [address] [place] [address] 71558Mwtuggkfk (Bld) [#/Vol]1.0 10*3/uLHigh0-0.9ProHca [facility] North CypressComment on above:Performed By: #### PRIYANK, 16826-0, BMP ####[facility] ([id number])[address] [place] [address] 81162#### BRIJESH ####[facility] ([id number])[address], [place] [address]Dwvlnxnvg/100 WBC (Bld)5.7 %NormalSt. Mary's Medical CenterComment on above:Performed By: #### PRIYANK 63260-3, BMP ####[facility] ([id number])[address] [place] [address] 94321#### HAJp ####[facility] ([id number])[address] [facility], [address], [place] [address]Kygdoduplmd/100 WBC (Bld) 83.9 %NormalSt. Mary's Medical CenterComment on above:Performed By: #### PRIYANK 17953-0, BMP ####[facility] ([id number])[address] [place] [address] 59925#### BRIJESH ####[facility] ([id number])[address], [address] [place] [address] 15851Srpaijsm mean volume (Bld) [Entitic vol]7.1 fLNormal7-12Pro[facility] Children'S HospitalComment on above: Performed By: #### PRIYANK 21497-5, BMP ####[facility] ([id number])[address] [place] [address] 23430#### HAJp ####[facility] ([id number])[address], [address] [place] [address] 99511Skstpkomf (Bld) [#/Vol]288 10*3/eHNnmypg593-026FhqTlkqrd [facility] Comment on above:Performed By: #### PRIYANK, 03538-9, BMP ####[facility] ([id number])[address] [place] [address] 50856#### BRIJESH ####[facility] ([id number])[address] [place] [address], [address] [place] [address] 15628IXZ COUNT4.35 X10E12/LNormal3.80-5.20ProHca [facility] North CypressComment on above:Performed By: #### PRIYANK 61181-9, BMP ####[facility] ([id number])[address] [place] [address] 94236#### BRIJESH ####[facility] ([id number])[address] [place] [address], [address] [place] [address] 85565HGN (Bld) [#/Vol]17.0 10*3/uLHigh4.0-11.0ProHca [facility] North CypressComment on above:Performed By: #### PRIYANK 88698-8, BMP ####[facility] ([id number])[address] [place] [address] 79072#### BRIJESH ####[facility] ([id number])[address] [place] [address], [address] [place] [address] 17138Kvotfdh Glucometer (BldC) [Mass/Vol]on 10-20-8210Yfryyaa [Mass/Vol]329 mg/wNEdwz58-52BpiXlczixSt. Mary's Medical CenterGlucose [Mass/Vol]318 mg/bTEuix86-32BjvKljkcrHca Houston Healthcare North CypressHGB A1C (GLYCO-HGB)on 13-76-6688Yoicuvg [Mass/Vol]171 mg/dLNormalProHca Houston Healthcare North CypressComment on above:Performed By: #### PRIYANK, 11866-8, BMP ####[facility] ([id number])[address] [place] [address] 92370#### HAJp ####[facility] ([id number])[address] [place] [address], [address] [place] [address] 59853HeX6e (Bld) [Mass fraction]7.6 %High4.4-5.6ProHca [facility] Healthcare North CypressComment on above:Result Comment: NOTE ADA Guidelines Result HgbA1c Normal : less than 5.7 % Prediabetes : 5.7 % to 6.4 % Diabetes : > 6.4 %Use with caution in patients with abnormal hemoglobin variants asthe half-life of red blood cells and in vivo glycation rates areaffected.Performed By: #### CBCA, 38492-1, BMP ####[facility] ([id number])[address] [place] [address]#### HA1C ####[facility] [facility] ([id number])[address] [place] [address]Stethvl (P nathalie) [Moles/Vol]on 46-92-5968EPCJUCN W/REFLEX0.7 mmol/LNormal 0.4-2.0ProHca Houston Healthcare North CypressComment on above:Result Comment: Result did not trigger repeat Lactate,re-order if needed.Performed By: #### 00819-5 ####[facility] ([id number])[address] [place] [address] 78229NJBK PCR NASALon [id number] DNA JANIA+probe Ql (Unsp spec) NegativeNormalNEGProHca Houston Healthcare North CypressComment on above:Performed By: #### [id number] ####[facility] [facility] ([id number])[address] [place] [address] 42142Wubzkqcb I.cardiac High sensitivity method [Mass/Vol]on HOUR TROP I, HIGH SENSITIVITY6 ng/LNormal<16ProHca Houston Healthcare North CypressComment on above:Performed By: #### 83015-9 ####[facility] ([id number])[address] [place] [address], [place] [address]CHZAEWXL I, HIGH SENSITIVITY5 ng/LNormal<16St. [facility] Medical CenterComment on above: Performed By: #### PRIYANK, 60003-5, BMP ####[facility] ([id number])[address] [place] [address], [place] [address]#### HA1C ####[facility] [place] [facility] ([id number])[address] [facility], [address], [place] [address]ED CHEST 1 VWon 80-86-0373FX CHEST 1 VWNormalProHca Houston Healthcare North CypressXR FOOT LT MIN 3 VWSon 01-84-3772IY FOOT LT MIN 3 VWSNormFisher-Titus Medical CenterXR FOOT RT MIN 3 VWSon 62-73-7825FH FOOT RT MIN 3 [facility] Medical CenterBASIC METABOLIC PANLon 27-25-4591Yffxm gap [Moles/Vol]9 mmol/L Normal5-15ProHca Houston Healthcare North CypressComment on above:Performed By: #### PRIYANK ALEMAN, BMP ####[facility] ([id number])[address] [place] [address]Yqnqcrs [Mass/Vol]8.9 mg/dLNormal8.5-10.5PKeenan Private HospitalComment on above:Performed By: #### PRIYANK ALEMAN, BMP ####[facility] ([id number])[address] [place] [address] Chloride [Moles/Vol]102 mmol/CWtdfbk38-427XxzEdcoceHca Houston Healthcare North CypressComment on above:Performed By: #### PRIYANK ALEMAN, BMP ####[facility] ([id number])[address] [place] [address] 672[address]ZH8 [Moles/Vol]23 mmol/LQhbjar79-76VcuCjyrmdKeenan Private HospitalComment on above:Performed By: #### LIVDarlin CBCAriana, BMP ####[facility] ([id number])[address] [place] [address]Zazrxeuqst [Mass/Vol]0.82 mg/dLNormal0.40-1.00 ProMUniversity of California, Irvine Medical CenterComment on above:Result Comment: METHOD TRACEABLE TO IDMS STANDARDPerformed By: #### PRIYANK ALEMAN BMP ####[facility] ([id number])[address] [place] [address]9626ZKX/1.73 sq M.predicted among non-blacks MDRD (S/P/Bld) [Vol rate/Area]80 mL/min/{1.73_m2} Normal>59ProHca Houston Healthcare North CypressComment on above:Result Comment: Reported eGFR is based on theCKD-EPI 2020 equation that doesnot use a race coefficient. Performed By: #### PRIYANK ALEMAN BMP ####[facility] ([id number])[address] [place] [address] 207[address]Ndjrome [Mass/Vol]155 mg/dLHigh 65-99ProHca Houston Healthcare North CypressComment on above:Performed By: #### PRIYANK ALEMAN BMP ####[facility] ([id number])[address] [place] [address] 60[address]Hgnzdzfpw [Moles/Vol]5.0 mmol/LNormal3.5-5.0St. Mary's Medical CenterComment on above:Performed By: #### PRIYANK ALEMAN, BMP ####[facility] ([id number])[address] [place] [address] Sodium [Moles/Vol]134 mmol/NLjjhot573-000LhdGnehlp [place] HospitalComment on above:Performed By: #### PRIYANK ALEMAN, BMP ####[facility] ([id number])[address] [place] [address] 21501Uinz nitrogen [Mass/Vol]11 mg/dLNormal5-27ProHca Houston Healthcare North CypressComment on above:Performed By: #### ASH CBCAriana, BMP ####[facility] ([id number])[address] [place] [address] 43806KFK AND AUTO DIFFon 13-29-3673VNYVQOAQ BASOPHIL0.1 X10E9/LNormal0.0-0.2ProMedica Miller Children'S HospitalComment on above: Performed By: #### LIVDarlin CBCA, BMP ####[facility] ([id number])[address] [place] [address] 79395HBTAQILG NEUTROPHIL8.0 X10E9/L High1.5-6.6St. Mary's Medical CenterComment on above:Performed By: #### LIVDarlin CBCA, BMP ####[facility] ([id number])[address] [place] [address] 61444Vjfzjtazz/100 WBC (Bld)1.4 %NormalProHca Houston Healthcare North CypressComment on above:Performed By: #### LIVDarlin CBCA, BMP ####[facility] ([id number])[address] [place] [address] 56998 Eosinophils (Bld) [#/Vol]0.4 10*3/uLNormal0.0-0.4[facility] Comment on above:Performed By: #### LIVDarlin CBCA, BMP ####[facility] ([id number])[address] [place] [address] 82012 Eosinophils/100 WBC (Bld)3.7 %NormalSt. Mary's Medical CenterComment on above: Performed By: #### LIVDarlin CBCA, BMP ####[facility] ([id number])[address] [place] [address] 66282Nzpzhnkdsts distribution width (RBC) [Ratio]18.6 %High11.5-15.0St. Mary's Medical CenterComment on above: Performed By: #### LIVR, CBCA, BMP ####[facility] ([id number])[address] [place] [address] 16900Mdkvujubuo (Bld) [Volume fraction]39.2 %Hkkhhr44-44PqeJmebqoHca Houston Healthcare North CypressComment on above:Performed By: #### LIVDarlin CBCA, BMP ####[facility] ([id number])[address] [place] [address] 18443Gddaryzzyo (Bld) [Mass/Vol]12.9 g/dL Ecelhx73.7-15.5ProMedica Miller Children'S HospitalComment on above:Performed By: #### LIVDarlin CBCA, BMP ####[facility] ([id number])[address] [place] [address] 78689Qpidhdxiyvs (Bld) [#/Vol]1.1 10*3/uLNormal1.0-3.5 [facility]S HospitalComchelsea hospital on above:Performed By: #### LIVR, CBCA, BMP ####[facility] ([id number])[address] [place] [address] 51796Ubdsfpkogbi/100 WBC (Bld)10.7 %NormalSt. Mary's Medical CenterComment on above:Performed By: #### LIVR CBCA, BMP ####[facility] ([id number])[address] [place] [address] 38530JLV (RBC) [Entitic mass]27.9 ekKygngt39-10NliQzopmgHca Houston Healthcare North CypressComment on above:Performed By: #### LIVR, CBCA, BMP ####[facility] ([id number])[address] [place] [address] 40960NLTB (RBC) [Mass/Vol]32.8 g/tGRqtptd01-72NytMuawzdHca Houston Healthcare North CypressComment on above: Performed By: #### LIVR, CBCA, BMP ####[facility] ([id number])[address] [place] [address], [place] [address]KQT (RBC) [Entitic vol]85 fL Opsdyk61-612KeaRvfgqeHca Houston Healthcare North CypressComment on above:Performed By: #### LIVDarlin, CBCA, BMP ####[facility] ([id number])[address] [place] [address] 45159Drzueeqmd (Bld) [#/Vol]0.8 10*3/uLNormal0-0.9St. Mary's Medical CenterComment on above:Performed By: #### LIVDarlin, CBCA, BMP ####[facility] ([id number])[address] [place] [address] 64502 Monocytes/100 WBC (Bld)7.6 %NormalSt. Mary's Medical CenterComment on above: Performed By: #### LIVDarlin, CBCA, BMP ####[facility] ([id number])[address] [place] [address], [place] [address]Ogaysgcthpu/100 WBC (Bld)76.6 % NormalSt. Mary's Medical CenterComment on above:Performed By: #### LIVR, CBCA, BMP ####[facility] ([id number])[address] [place] [address] 74747Lcwnzyds mean volume (Bld) [Entitic vol]7.5 fLNormal7-12 ProMUniversity of California, Irvine Medical CenterComment on above:Performed By: #### LIVR, CBCA, BMP ####[facility] ([id number])[address] [place] [address] 94821Iyyjyhdsh (Bld) [#/Vol]259 10*3/sNLahzzk486-825IsfIorjru Fremont HospitalComment on above:Performed By: #### LIVR, CBCA, BMP ####[facility] ([id number])[address] [place] [address], [place] [address] RBC COUNT4.61 X10E12/LNormal3.80-5.20ProHca Houston Healthcare North CypressComment on above: Performed By: #### PRIYANK ALEMAN, BMP ####[facility] ([id number])[address] [place] [address] 71817SYU (Bld) [#/Vol]10.4 10*3/uL Normal4.0-11.0ProHca Houston Healthcare North CypressComment on above:Performed By: #### PRIYANK ALEMAN, BMP ####[facility] ([id number])[address] [place] [address] 47718YFRTZ PANELon 07-39-1675Dlqnhsj [Mass/Vol]3.8 g/dL Normal3.2-5.3PKeenan Private HospitalComment on above:Performed By: #### PRIYANK ALEMAN, BMP ####[facility] ([id number])[address] [place] [address], [place] [address]LZH [Catalytic activity/Vol]105 U/RPckgxp16-564QwbNkqtndHca Houston Healthcare North CypressComment on above:Performed By: #### PRIYANK ALEMAN, BMP ####[facility] ([id number])[address] [place] [address], [place] [address] ALT [Catalytic activity/Vol]13 U/LNormal0-31PKeenan Private HospitalComment on above:Performed By: #### PRIYANK ALEMAN, BMP ####[facility] ([id number])[address] [place] [address], [place] [address]BTT [Catalytic activity/Vol]22 U/LNormal0-41ProHca Houston Healthcare North CypressComment on above: Performed By: #### PRIYANK ALEMAN, BMP ####[facility] ([id number])[address] [place] [address] 41740Hynjbfubz [Mass/Vol]1.1 mg/dL Normal0.3-1.2ProMedica Miller Children'S HospitalComment on above:Performed By: #### PRIYANK ALEMAN, BMP ####[facility] ([id number])[address] [place] [address] 35646Dkqbqhcfn.direct [Mass/Vol]0.2 mg/dLNormal0.0-0.4 [facility] Miller Children'S HospitalComment on above:Performed By: #### PRIYANK ALEMAN, BMP ####[facility] ([id number])[address] [place] [address] 35333Kyrfcyp [Mass/Vol]7.4 g/dLNormal6.0-8.0Pro[facility] Miller Children'S HospitalComment on above:Performed By: #### PRIYANK ALEMAN, BMP ####[facility] ([id number])[address] [place] [address] 45437IDEZZ METABOLIC PANLon 72-82-8121Svrdv gap [Moles/Vol]13 mmol/LNormal5-15ProWood County HospitalComment on above:Performed By: #### PRIYANK, 04293-6, CMP #### [facility] [place] [facility] ([id number]) [address], [address] [place], [place] [address]Tijfdak [Mass/Vol]9.0 mg/dLNormal8.5-10.5PWilson Memorial HospitalComment on above:Performed By: #### PRIYANK, 05270-1, CMP #### [facility] ([id number]) [address], [address] [place], [place] [address]Ctommaie [Moles/Vol]97 mmol/ZFvx33-204KbrFifgopWood County Hospital Comment on above:Performed By: #### PRIYANK, 46388-3, CMP #### [facility] ([id number]) [address], [address] [place], [place] [address]KH3 [Moles/Vol]27 mmol/ELshqzx68-96BduKcsdthWilson Memorial Hospital Comment on above:Performed By: #### PRIYANK , CMP #### [facility] ([id number]) [address], [address] [place], [place] [address]Omzqccfwxf [Mass/Vol]0.53 mg/dLNormal0.40-1.00ProWood County HospitalComment on above:Result Comment: METHOD TRACEABLE TO IDMS STANDARD Performed By: #### PRIYANK , CMP #### [facility] ([id number]) [address], [address] [place], [place] [address]iTWU (CKD-EPI) NON-RACE DEPENDENT>90Normal>59ProWood County HospitalComment on above:Result Comment: Reported eGFR is based on the CKD-EPI 2020 equation that does not use a race coefficient.Performed By: #### PRIYANK , CMP #### [facility] ([id number]) [address], [address] [place], [place] [address]Pubkphh [Mass/Vol]121 mg/uSVdaz57-73CqyMpbhivOhioHealth Marion General Hospital Comment on above:Performed By: #### PRIYANK , CMP #### [facility] ([id number]) [address], [address] [place], [place] [address]Gpysrqrro [Moles/Vol]3.4 mmol/LLow3.5-5.0ProWood County HospitalComment on above:Performed By: #### PRIYANK , CMP #### [facility] ([id number]) [address], [address] [place], [place] [address]Hfefgf [Moles/Vol]137 mmol/MHsowrh988-278XyvFcfhdc [place] HospitalComment on above:Performed By: #### PRIYANK, , CMP #### [facility] ([id number]) [address], [address] [place], [place] [address]Zkjp nitrogen [Mass/Vol]9 mg/dLNormal5-27ProNewark Hospital HospitalComment on above:Performed By: #### PRIYANK, , CMP #### [facility] ([id number]) [address], [address] [place], [place] [address]KLFSHRBR BLOOD COUNTon 68-19-9546Oeabwrskxft distribution width (RBC) [Ratio]17.6 %High11.5-15.0ProWayne Hospitalca [place] HospitalComment on above: Performed By: #### PRIYANK, , CMP #### [facility] ([id number]) [address], [facility] [address] [place], [place] [address]Ijnypflupy (Bld) [Volume fraction]38.3 %Guxeve50-06GxuThniot [place] HospitalComment on above:Performed By: #### PRIYANK, , CMP #### [facility] ([id number]) [address], [address] [place], [place] [address]Irdscfywvh (Bld) [Mass/Vol]12.9 g/sQDxkebx66.7-15.5ProMedica [facility]burg HospitalComment on above:Performed By: #### PRIYANK, , CMP #### [facility] ([id number]) [address], [facility] [address] [place], [place] [address]TEZ (RBC) [Entitic mass]29.4 ukFsdnnh20-13ZdsAwqftr [place] HospitalComment on above:Performed By: #### PRIYANK, , CMP #### [facility] ([id number]) [address], [address] [place], [place] [address]ILRJ (RBC) [Mass/Vol]33.7 g/kIGlipuz58-67AadNtgvoa [place] HospitalComment on above:Performed By: #### PRIYANK, , CMP #### [facility] ([id number]) [address], [address] [place], [place] [address]NLP (RBC) [Entitic vol]87 mTRpvglq96-909NgnEkzgwe [place] HospitalComment on above:Performed By: #### PRIYANK, , CMP #### [facility] ([id number]) [address], [address] [place], [place] [address]Ygnetdfq mean volume (Bld) [Entitic vol]7.1 fLNormal7-12 ProMedicMartins [facility]erry Hospital HospitalComment on above:Performed By: #### PRIYANK, , CMP #### [facility] ([id number]) [address], [address] [place], [place] [address]Anxhvosuo (Bld) [#/Vol]225 10*3/rDCebcop843-388VijQufkde [place] HospitalComment on above:Performed By: #### PRIYANK, , CMP #### [facility] ([id number]) [address], [address] [place] [address]IJS COUNT4.40 X10E12/LNormal3.80-5.20[facility] Comment on above:Performed By: #### PRIYANK, , CMP #### [facility] ([id number]) [address], [address] [place] [address]IDB (Bld) [#/Vol]9.8 10*3/uLNormal4.0-11.0ProWood County HospitalComment on above:Performed By: #### PRIYANK, , CMP #### [facility] ([id number]) [address], [address] [place] [address]Fbduekh unfractionated Chromogenic method Qn (PPP)on 04-19-2024 ANTI XA UFH0.42 IU/mLNormal0.30-0.70ProWood County HospitalComment on above: Result Comment: Optimal time for testing is 6 hrs post dosage This test is specific for monitoring patients on UFH, and is not recommended for use with other Anti-Xa medications.Performed By: #### PRIYANK, 67619-7, CMP #### [facility] ([id number]) [address], [address] [place], [place] [address]XHGCAED AND INRon 51-43-0162LOU Coag (PPP) [Relative time]1.0 {INR}Normal0.8-1.1PTriHealth HospitalComment on above:Performed By: #### PRIYANK, , CMP #### [facility] ([id number]) [address], [address] [place], [place] [address]PQ Coag (PPP) [Time]11.5 sNormal9.8-13.2PWilson Memorial HospitalComment on above:Performed By: #### PRIYANK, 87038-7, CMP #### [facility] ([id number]) [address], [address] [place], [place] [address]VCYFB METABOLIC PANLon 69-79-8042Stbko gap [Moles/Vol]6 mmol/L Normal5-15Pro[facility] HospitalComment on above:Performed By: #### 15206-3, CBCA, CMP #### [facility] ([id number]) [address], [address] [place], [place] [address]Vkqzcxl [Mass/Vol]8.7 mg/dLNormal8.5-10.5PTriHealth HospitalComment on above:Performed By: #### 70534-2, CBCA, CMP #### [facility] ([id number]) [address], [address] [place], [place] [address]Jgldbgbn [Moles/Vol]103 mmol/FWnclqn79-576GkpHnuoqc [place] HospitalComment on above:Performed By: #### 28785-4, CBCA, CMP #### [facility] ([id number]) [address], [address] [place], [place] [address]UT5 [Moles/Vol]29 mmol/EHczymf49-40MpeLtjvcbWilson Memorial Hospital Comment on above:Performed By: #### 16178-4, CBCA, CMP #### [facility] ([id number]) [address], [address] [place], [place] [address]Wpsmsrgzrf [Mass/Vol]0.62 mg/dLNormal0.40-1.00[facility] HospitalComment on above:Result Comment: METHOD TRACEABLE TO IDMS STANDARD Performed By: #### 30195-0, CBCA, CMP #### [facility] ([id number]) [address], [address] [address]vFCR (CKD-EPI) NON-RACE DEPENDENT>90Normal>59ProWood County HospitalComment on above:Result Comment: Reported eGFR is based on the CKD-EPI 2020 equation that does not use a race coefficient.Performed By: #### 24785-6, CBCA, CMP #### [facility] ([id number]) [address], [address] [place], [place] [address]Amsvjwq [Mass/Vol]91 mg/kTLerzqy07-00SynXftysiOhioHealth Marion General Hospital Comment on above:Performed By: #### 77941-9, CBCA, CMP #### [facility] ([id number]) [address], [facility] [address] [place], [place] [address]Okmyqdvuy [Moles/Vol]4.3 mmol/LNormal3.5-5.0ProWood County HospitalComment on above:Performed By: #### 14490-2, CBCA, CMP #### [facility] ([id number]) [address], [address] [place], [place] [address]Enekkk [Moles/Vol]138 mmol/WHwywzf255-772NxkIpdtmy [place] HospitalComment on above:Performed By: #### 69334-8, CBCA, CMP #### [facility] ([id number]) [address], [address] [place], [place] [address]Ehox nitrogen [Mass/Vol]12 mg/dLNormal5-27ProMedica [facility]hary HospitalComment on above:Performed By: #### 79189-6, CBCA, CMP #### [facility] ([id number]) [address], [facility] [address] [place], [place] [address]HPNSVCDA BLOOD COUNTon 92-22-8884Ogvlrprmvjk distribution width (RBC) [Ratio]17.2 %High11.5-15.0ProMedica Choudhary HospitalComment on above: Performed By: #### PRIYANK, , CMP #### [facility] ([id number]) [address], [address] [place], [place] [address]Yolajiazre (Bld) [Volume fraction]38.8 %Vpqsku23-11EriHqqrqc [place] HospitalComment on above:Performed By: #### PRIYANK , CMP #### [facility] ([id number]) [address], [address] [place], [place] [address]Ytaeetrbgr (Bld) [Mass/Vol]12.6 g/fPTcfljk44.7-15.5ProMedica [place] HospitalComment on above:Performed By: #### PRIYANK, , CMP #### [facility] ([id number]) [address], [address] [place], [place] [address]FJU (RBC) [Entitic mass]28.5 rqTmxhvw13-59FhdHeqgwe [facility] HospitalComment on above:Performed By: #### CBCAriana, , CMP #### [facility] ([id number]) [address], [address] [place], [place] [address]WJZH (RBC) [Mass/Vol]32.4 g/jRNadnkx61-52MmlBjhxev [facility] HospitalComment on above:Performed By: #### CBCAriana, , CMP #### [facility] ([id number]) [address], [address] [place], [place] [address]RRB (RBC) [Entitic vol]88 zCOkplgk37-885PesKgdfmo [facility] HospitalComment on above:Performed By: #### PRIYANK, , CMP #### [facility] ([id number]) [address], [address] [place], [place] [address]Eckusyig mean volume (Bld) [Entitic vol]7.5 fLNormal7-12 ProMOhioHealth Mansfield Hospital HospitalComment on above:Performed By: #### PRIYANK, , CMP #### [facility] ([id number]) [address], [address] [place], [place] [address]Ztirqibuo (Bld) [#/Vol]237 10*3/tXWxbaoc144-238NdkPjcavv [facility] HospitalComment on above:Performed By: #### PRIYANK, , CMP #### [facility] ([id number]) [address], [address] [place], [place] [address]MZI COUNT4.41 X10E12/LNormal3.80-5.20[facility] Comment on above:Performed By: #### PRIYANK, , CMP #### [facility] ([id number]) [address], [address] [place], [place] [address]ITJ (Bld) [#/Vol]10.1 10*3/uLNormal4.0-11.0Pro[facility] HospitalComment on above:Performed By: #### PRIYANK, , CMP #### [facility] ([id number]) [address], [address] [place], [place] [address]Gvuxtfutwyk distribution width (RBC) [Ratio]17.4 %High11.5-15.0 ProMOhioHealth Mansfield Hospital HospitalComment on above:Performed By: #### 81880-8, CBCAriana, CMP #### [facility] ([id number]) [address], [address] [place], [place] [address]Ylorrwwyth (Bld) [Volume fraction]36.6 %Vrlnje48-08IoqKwmlyl [facility] HospitalComment on above:Performed By: #### 87502-4, CBCA, CMP #### [facility] ([id number]) [address], [address] [place], [place] [address]Glufygyhit (Bld) [Mass/Vol]11.9 g/dHGnhjcl63.7-15.5ProMedica [facility] HospitalComment on above:Performed By: #### 09565-8, CBCA, CMP #### [facility] ([id number]) [address], [address] [place], [place] [address]ZQZ (RBC) [Entitic mass]28.7 lbOtbech58-31DseLlesfi [facility] HospitalComment on above:Performed By: #### 21317-3, CBCA, CMP #### [facility] ([id number]) [address], [address] [place], [place] [address]AOUZ (RBC) [Mass/Vol]32.4 g/gSXvsftf57-38PmoEctzoi [facility] HospitalComment on above:Performed By: #### 94596-5, CBCA, CMP #### [facility] ([id number]) [address], [address] [place], [place] [address]TQX (RBC) [Entitic vol]89 dSPyxats74-548VnnQehfkt [facility] HospitalComment on above:Performed By: #### 71032-9, CBCA, CMP #### [facility] ([id number]) [address], [address] [place], [place] [address]Rymmvalb mean volume (Bld) [Entitic vol]6.9 fLLow7-12ProMedica [facility] HospitalComment on above:Performed By: #### 48329-9, CBCA, CMP #### [facility] ([id number]) [address], [address] [place], [place] [address]Oyighymkj (Bld) [#/Vol]212 10*3/zWStqimf115-707CizKgpovp [facility] HospitalComment on above:Performed By: #### 02673-7, CBCA, CMP #### [facility] ([id number]) [address], [address] [place], [place] [address]ZMS COUNT4.13 X10E12/LNormal3.80-5.20ProWayne Hospitalca [facility] Comment on above:Performed By: #### 31693-8, CBCA, CMP #### [facility] ([id number]) [address], [address] [place] [address]UGX (Bld) [#/Vol]10.4 10*3/uLNormal4.0-11.0ProWayne Hospitalca [facility] HospitalComment on above:Performed By: #### 84545-7, CBCA, CMP #### [facility] ([id number]) [address], [facility] [address] [place], [place] [address]Nsrgjdusrqu distribution width (RBC) [Ratio]16.8 %High11.5-15.0 [facility] HospitalComment on above:Performed By: #### 79638-9, CBCA, CMP #### [facility] ([id number]) [address], [address] [place], [place] [address]Lbwegpiytp (Bld) [Volume fraction]38.9 %Ajensa77-57AplZeunpb [facility] HospitalComment on above:Performed By: #### 64817-0, CBCA, CMP #### [facility] ([id number]) [address], [address] [place], [place] [address]Fokkzhyinm (Bld) [Mass/Vol]12.7 g/sEPihzww63.7-15.5Pro[facility] HospitalComment on above:Performed By: #### 64689-7, CBCA, CMP #### [facility] ([id number]) [address], [address] [place], [place] [address]RCY (RBC) [Entitic mass]28.5 sgRjgvsj93-47RhoSpslkc [facility] HospitalComment on above:Performed By: #### 46491-6, CBCA, CMP #### [facility] ([id number]) [address], [address] [place], [place] [address]ZYDK (RBC) [Mass/Vol]32.5 g/xONgeofm86-64LgjYjwylh [place] HospitalComment on above:Performed By: #### 96713-8, CBCA, CMP #### [facility] ([id number]) [address], [address] [place], [place] [address]MRK (RBC) [Entitic vol]88 kNNjvvkg53-766AteZiniin [facility] HospitalComment on above:Performed By: #### 86355-1, CBCA, CMP #### [facility] ([id number]) [address], [address] [place], [place] [address]Zzjebztq mean volume (Bld) [Entitic vol]7.0 fLNormal7-12 ProMmadison hospitala [facility] HospitalComment on above:Performed By: #### 61649-8, CBCA, CMP #### [facility] ([id number]) [address], [address] [place], [place] [address]Jjbsvhdop (Bld) [#/Vol]246 10*3/jCMgdfcq659-862KhfFikqma [facility] HospitalComment on above:Performed By: #### 30707-5, CBCA, CMP #### [facility] ([id number]) [address], [address] [place], [place] [address]OAL COUNT4.43 X10E12/LNormal3.80-5.20[facility] Comment on above:Performed By: #### 10225-3, CBCA, CMP #### [facility] ([id number]) [address], [address] [place], [place] [address]EVI (Bld) [#/Vol]9.7 10*3/uLNormal4.0-11.0ProWayne Hospitalca [facility] HospitalComment on above:Performed By: #### 07214-9, CBCA, CMP #### [facility] ([id number]) [address], [address] [place], [place] [address]Gosbnaoijbq distribution width (RBC) [Ratio]17.4 %High11.5-15.0 [facility] HospitalComment on above:Performed By: #### 26812-2, CBCA, CMP #### [facility] ([id number]) [address], [address] [place], [place] [address]Igetmfezwy (Bld) [Volume fraction]38.2 %Evlfsc79-55VleHzecdq [place] HospitalComment on above:Performed By: #### 01764-9, CBCA, CMP #### [facility] ([id number]) [address], [address] [place], [place] [address]Psfwfgsmdr (Bld) [Mass/Vol]12.4 g/uHKlwiao01.7-15.5[facility] HospitalComment on above:Performed By: #### 10499-5, CBCA, CMP #### [facility] ([id number]) [address], [address] [place], [place] [address]HAO (RBC) [Entitic mass]28.8 pnYtxrti42-26AqhTeyyco [facility] HospitalComment on above:Performed By: #### 27074-2, CBCA, CMP #### [facility] ([id number]) [address], [address] [place], [place] [address]QQHD (RBC) [Mass/Vol]32.4 g/uMTiwotz12-55ReoNbypak [facility] HospitalComment on above:Performed By: #### 86008-3, CBCA, CMP #### [facility] ([id number]) [address], [address] [place] [address]QOP (RBC) [Entitic vol]89 yLNompty11-123UbxLamhsw [facility] HospitalComment on above:Performed By: #### 77879-3, CBCA, CMP #### [facility] ([id number]) [address], [address] [place] [address]Yjbfptzy mean volume (Bld) [Entitic vol]7.1 fLNormal7-12 [facility] HospitalComment on above:Performed By: #### 79159-2, CBCA, CMP #### [facility] ([id number]) [address], [address] [place] [address]Dnzkpraak (Bld) [#/Vol]238 10*3/rIRshhrs598-410WkzDsreaf [facility] HospitalComment on above:Performed By: #### 66972-4, CBCA, CMP #### [facility] ([id number]) [address], [address] [place] [address]WDZ COUNT4.31 X10E12/LNormal3.80-5.20[facility] Comment on above:Performed By: #### 93181-8, CBCA, CMP #### [facility] ([id number]) [address], [address] [place] [address]WIH (Bld) [#/Vol]7.8 10*3/uLNormal4.0-11.0ProWayne Hospitalca [facility] HospitalComment on above:Performed By: #### 30531-9, CBCA, CMP #### [facility] [facility] ([id number]) [address], [address] [place] [address]Gpzivuiiim Coagulation.derived (PPP) [Mass/Vol]on 04-18-2024 DQYCXYHWIG681 mg/oDYuxdfo957-074BqlDxvsfx [place] HospitalComment on above: Performed By: #### PRIYANK, 03372-3, CMP #### [facility] ([id number]) [address], [address] [place], [place] [address]JSEQXAVQPM424 mg/yLCjzsqq029-359KfoRhqzzk [place] HospitalComment on above:Performed By: #### 93248-6, CBCA, CMP #### [facility] ([id number]) [address], [address] [place], [place] [address]SKOZXNEBMR438 mg/pCHvnzur967-778BfrWvsitj [place] HospitalComment on above:Performed By: #### 06928-4, CBCA, CMP #### [facility] ([id number]) [address], [address] [place], [place] [address]PXRWFHAUBV209 mg/kAOiklvj843-411JndFygbkn [place] HospitalComment on above:Performed By: #### 41554-2, CBCA, CMP #### [facility] ([id number]) [address], [address] [place], [place] [address]Regfjag Glucometer (BldC) [Mass/Vol]on 71-16-3395Xcpicon [Mass/Vol]152 mg/tOOunc24-17SerUsrfkkOhioHealth Marion General HospitalGlucose [Mass/Vol]158 mg/dL Zmpl70-96HokXhmtmoOhioHealth Marion General HospitalHeparin unfractionated Chromogenic method Qn (PPP)on 33-82-4896NBWA XA UFH0.32 IU/mLNormal0.30-0.70[facility] Comment on above:Result Comment: Optimal time for testing is 6 hrs post dosage This test is specific for monitoring patients on UFH, and is not recommended for use with other Anti-Xa medications.Performed By: #### PRIYANK, 94259-9, CMP #### [facility] ([id number]) [address], [address] [place], [place] [address]CDPKTNL AND INRon 85-44-0731ULO Coag (PPP) [Relative time]1.0 {INR}Normal0.8-1.1PTriHealth HospitalComment on above:Performed By: #### PRIYANK, 72254-5, CMP #### [facility] ([id number]) [address], [address] [place], [place] [address]GR Coag (PPP) [Time]11.6 sNormal9.8-13.2ProMedKettering Health Washington Townshipo HospitalComment on above:Performed By: #### PRIYANK, 19476-0, CMP #### [facility] ([id number]) [address] [place], [place] [address]JNN Coag (PPP) [Relative time]1.0 {INR}Normal0.8-1.1ProMedMemorial Hermann Orthopedic & Spine Hospitaledo HospitalComment on above:Performed By: #### 86993-8, CBCA, CMP #### [facility] ([id number]) [address], [address] [place], [place] [address]JE Coag (PPP) [Time]11.8 sNormal9.8-13.2PCleveland Clinic Marymount Hospitaledo HospitalComment on above:Performed By: #### 41544-3, CBCA, CMP #### [facility] ([id number]) [address], [address] [place], [place] [address]PCZ Coag (PPP) [Relative time]1.0 {INR}Normal0.8-1.1ProMedMemorial Hermann Orthopedic & Spine Hospitaledo HospitalComment on above:Performed By: #### 93443-8, CBCA, CMP #### [facility] ([id number]) [address], [address] [place], [place] [address]BA Coag (PPP) [Time]11.6 sNormal9.8-13.2ProMedbryan whitfield memorial hospital [place] HospitalComment on above:Performed By: #### 85383-3, CBCA, CMP #### [facility] ([id number]) [address], [address] [place] [address]XHV Coag (PPP) [Relative time]1.0 {INR}Normal0.8-1.1PTriHealth HospitalComment on above:Performed By: #### 82763-3, CBCA, CMP #### [facility] ([id number]) [address], [address] [place], [place] [address]QH Coag (PPP) [Time]11.3 sNormal9.8-13.2PTriHealth HospitalComment on above:Performed By: #### 77334-0, CBCA, CMP #### [facility] ([id number]) [address], [address] [place] [address]sBBP Coag (PPP) [Time]on 48-12-7909lZHP Coag (Bld) [Time]63 s Hdjg34-86JdsGhtxypWood County HospitalComment on above:Performed By: #### PRIYANK, 70992-2, CMP #### [facility] ([id number]) [address], [address] [place], [place] [address]oQKR Coag (Bld) [Time]35 kQrggpd54-97GqfJrpmtvOhioHealth Marion General Hospital Comment on above:Performed By: #### PRIYANK, 71176-6, CMP #### [facility] ([id number]) [address], [address] [place], [place] [address]bXIU Coag (Bld) [Time]37 uYjnhqw16-31XmrSkkdaxOhioHealth Marion General Hospital Comment on above:Performed By: #### 94479-9, CBCA, CMP #### [facility] ([id number]) [address], [address] [place], [place] [address]bHAM Coag (Bld) [Time]37 iYielxu83-79NojDyojesOhioHealth Marion General Hospital Comment on above:Performed By: #### 64580-8, CBCA, CMP #### [facility] ([id number]) [address], [address] [place], [place] [address]HFU AND AUTO DIFFon 12-56-3752NLFFXYLV BASOPHIL0.1 X10E9/LNormal 0.0-0.2ProMedSt. Joseph's Medical CenterComment on above:Performed By: #### 71086-0, 85021-0, CMP, 05344-4, CBCA, 08399-1, PINR ####[facility] ([id number])[address] [place] [address]QZSQUVNQ NEUTROPHIL7.8 X10E9/LHigh1.5-6.6ProHca Houston Healthcare North CypressComment on above: Performed By: #### 62511-7, 48257-7, CMP, 18614-4, CBCA, 45208-9, PINR ####[facility] ([id number])[address] [place] [address]Rnxzlcjzp/100 WBC (Bld)1.4 %NormalProHca Houston Healthcare North CypressComment on above:Performed By: #### 68676-8, 69643-9, CMP, 10433-0, CBCA, 92456-4, PINR ####[facility] ([id number])[address] [place] [address]Ungelsjqmfm (Bld) [#/Vol]0.4 10*3/uLNormal 0.0-0.4St. Mary's Medical CenterComment on above:Performed By: #### 44023-8, 17167-4, CMP, 24988-1, CBCA, 39195-9, PINR ####[facility] ([id number])[address] [place] [address]Xvfccfhhrsg/100 WBC (Bld)4.1 %NormalProHca Houston Healthcare North CypressComment on above:Performed By: #### 63906-1, 08181-1, CMP, 98270-0, CBCA, 88053-9, PINR ####[facility] ([id number])[address] [place] [address] Erythrocyte distribution width (RBC) [Ratio]17.5 %High11.5-15.0St. Mary's Medical CenterComment on above:Performed By: #### 84731-7, 27465-1, CMP, 33784-2, CBCA, 92078-3, PINR ####[facility] ([id number])[address] [place] [address] 96340Mdvcljizlz (Bld) [Volume fraction]39.1 % Qupdhx91-08UgsOdsgsaHca Houston Healthcare North CypressComment on above:Performed By: #### 97649- 4, 26928-7, CMP, 53788-7, CBCA, 61921-1, PINR ####[facility] ([id number])[address] [place] [address] 90251Nrxtrmtfhb (Bld) [Mass/Vol]13.0 g/yWNxlqvy44.7-15.5PKeenan Private HospitalComment on above: Performed By: #### 86980-9, 01615-0, CMP, 74188-7, CBCA, 93100-9, PINR ####[facility] ([id number])[address] [place] [address] 80971Ybovvqvqjnq (Bld) [#/Vol]1.1 10*3/uLNormal1.0-3.5PKeenan Private HospitalComment on above:Performed By: #### 92167-9, 91164-5, CMP, 07222-9, CBCA, 22697-5, PINR ####[facility] ([id number])[address] [place] [address]Cjeqvxaukfh/100 WBC (Bld)11.4 %Normal ProMedicRobert F. Kennedy Medical CenterComment on above:Performed By: #### 74205-2, 32912-9, CMP, 93101-0, CBCA, 26616-5, PINR ####[facility] ([id number])[address] [place] [address] 12326AHO (RBC) [Entitic mass]29.0 pg Pdgabf84-45MeoOxtgmzHca Houston Healthcare North CypressComment on above:Performed By: #### 11184- 4, 01429-4, CMP, 90492-7, CBCA, 74305-4, PINR ####[facility] ([id number])[address] [place] [address]HUEB (RBC) [Mass/Vol]33.2 g/fTZkibya28-56FqgEefeffHca Houston Healthcare North CypressComment on above: Performed By: #### 36096-9, 87832-9, CMP, 89469-8, CBCA, 55572-2, PINR ####[facility] ([id number])[address] [place] [address] 94606IDY (RBC) [Entitic vol]87 oIJqwgkk98-480XkcSgzlhq [facility] HospitalComment on above:Performed By: #### 87259-2, 90864-4, CMP, 77334-2, CBCA, 48075-3, PINR ####[facility] ([id number])[address] [place] [address] 96142Nqolxcews (Bld) [#/Vol]0.5 10*3/uLNormal 0-0.9St. Mary's Medical CenterComment on above:Performed By: #### 14834-7, 17454-7, CMP, 90602-5, CBCA, 34309-0, PINR ####[facility] ([id number])[address] [place], [place] [address]Monocytes/100 WBC (Bld)4.9 %NormalProHca Houston Healthcare North CypressComment on above:Performed By: #### 46824-8, 14982-5, CMP, 28311-5, CBCA, 53923-4, PINR ####[facility] ([id number])[address] [place] [address]51[address] Neutrophils/100 WBC (Bld)78.2 %NormalProHca Houston Healthcare North CypressComment on above: Performed By: #### 56454-4, 56780-6, CMP, 19247-4, CBCA, 22764-0, PINR ####[facility] ([id number])[address] [place] [address]Fyrfxyug mean volume (Bld) [Entitic vol]6.9 fLLow7-12 Pro[facility] Children'S HospitalComment on above:Performed By: #### 30587-2, 09404-1, CMP, 11775-0, CBCA, 03795-8, PINR ####[facility] ([id number])[address] [place] [address] 18763Uilgfgilz (Bld) [#/Vol]316 10*3/xPTpxcaf244-869BjcBbyepy [facility] HospitalComment on above:Performed By: #### 61617-6, 33790-1, CMP, 71033-7, CBCA, 28886-1, PINR ####[facility] ([id number])[address] [place] [address]ADY COUNT4.47 X10E12/LNormal3.80-5.20ProHca Houston Healthcare North CypressComment on above: Performed By: #### 67168-0, 35746-2, CMP, 66870-7, CBCA, 41807-1, PINR ####[facility] ([id number])[address] [place] [address]14[address]ULA (Bld) [#/Vol]10.0 10*3/uLNormal4.0-11.0ProHca Houston Healthcare North CypressComment on above:Performed By: #### 80283-1, 86493-6, CMP, 87567-4, CBCA, 90013-1, PINR ####[facility] ([id number])[address] [place] [address], [place], [place] [address]CXEUXOCISIDDX METABOLIC PANELon 72-44-3397Jlvvqqb [Mass/Vol]3.4 g/dLNormal3.2-5.3PWilson Memorial Hospital Comment on above:Performed By: #### 65400-5, CBCA, CMP #### [facility] ([id number]) [address], [address] [place], [place] [address]GCP [Catalytic activity/Vol]85 U/IEncvtz40-284QluJojaqk [place] HospitalComment on above:Performed By: #### 67298-4, CBCA, CMP #### [facility] ([id number]) [address], [address] [place], [place] [address]ZFJ [Catalytic activity/Vol]9 U/LNormal0-31PTriHealth HospitalComment on above:Performed By: #### 72652-6, CBCA, CMP #### [facility] ([id number]) [address], [address] [place], [place] [address]Yskpk gap [Moles/Vol]7 mmol/LNormal5-15[facility] Comment on above:Performed By: #### 48070-9, CBCA, CMP #### [facility] ([id number]) [address], [address] [place], [place] [address]ENX [Catalytic activity/Vol]21 U/LNormal0-41ProNewark Hospital HospitalComment on above:Performed By: #### 46600-4, CBCA, CMP #### [facility] ([id number]) [address], [address] [place], [place] [address]Vnjnwgros [Mass/Vol]0.3 mg/dLNormal0.3-1.2ProMedThe Surgical Hospital at Southwoods HospitalComment on above:Performed By: #### 69074-1, CBCA, CMP #### [facility] ([id number]) [address], [address] [place], [place] [address]Dcvovii [Mass/Vol]8.5 mg/dLNormal8.5-10.5PWilson Memorial HospitalComment on above:Performed By: #### 87911-5, CBCA, CMP #### [facility] ([id number]) [address], [address] [place], [place] [address]Zhnshewd [Moles/Vol]102 mmol/INoryca43-612DszIlwkpk [place] HospitalComment on above:Performed By: #### 87766-8, CBCA, CMP #### [facility] ([id number]) [address], [address] [place], [place] [address]JI9 [Moles/Vol]29 mmol/DDlqpsf28-41KwlLvhedv [facility] Comment on above:Performed By: #### 55584-6, CBCA, CMP #### [facility] ([id number]) [address], [address] [place], [place] [address]Mawrjkwnhn [Mass/Vol]0.76 mg/dLNormal0.40-1.00ProWood County HospitalComment on above:Result Comment: METHOD TRACEABLE TO IDMS STANDARD Performed By: #### 20412-7, CBCA, CMP #### [facility] ([id number]) [address], [address] [place], [place] [address]LLB/1.73 sq M.predicted among non-blacks MDRD (S/P/Bld) [Vol rate/Area]87 mL/min/{1.73_m2}Normal>59ProWood County HospitalComment on above: Result Comment: Reported eGFR is based on the CKD-EPI 2020 equation that does not use a race coefficient.Performed By: #### 04709-9, CBCA, CMP #### [facility] ([id number]) [address], [address] [place], [place] [address]Xhngnsf [Mass/Vol]146 mg/mYGvtt05-57CijQgbdrfWood County Hospital Comment on above:Performed By: #### 28106-7, CBCA, CMP #### [facility] ([id number]) [address], [address] [place], [place] [address]Xdqbvdlme [Moles/Vol]4.4 mmol/LNormal3.5-5.0ProNewark Hospital HospitalComment on above:Performed By: #### 33422-8, CBCA, CMP #### [facility] ([id number]) [address], [address] [place], [place] [address]Xjrqxpq [Mass/Vol]6.2 g/dLNormal6.0-8.0[facility] Comment on above:Performed By: #### 81408-9, CBCA, CMP #### [facility] ([id number]) [address], [address] [place], [place] [address]Lcluuf [Moles/Vol]138 mmol/NGqpcxx072-524FjqWhsakw [place] HospitalComment on above:Performed By: #### 56415-8, CBCA, CMP #### [facility] ([id number]) [address], [address] [place], [place] [address]Sawc nitrogen [Mass/Vol]13 mg/dLNormal5-27ProWood County HospitalComment on above:Performed By: #### 92191-4, CBCA, CMP #### [facility] ([id number]) [address], [address] [place], [place] [address]Efsdzva [Mass/Vol]3.5 g/dLNormal3.2-5.3ProMedSt. Joseph's Medical CenterComment on above:Performed By: #### 89135-8, 12675-3, CMP, 38274-8, CBCA, 21633-0, PINR ####[facility] ([id number])[address] [place] [address]SFL [Catalytic activity/Vol]89 U/LNormal 39-130ProHca [facility] Healthcare North CypressComment on above:Performed By: #### 96056-2, 94259-3, CMP, 66445-5, CBCA, 01474-6, PINR ####[facility] ([id number])[address] [place] [address], [place] [address]UBL [Catalytic activity/Vol]12 U/LNormal0-31ProMedSt. Joseph's Medical CenterComment on above: Performed By: #### 95001-8, 55840-2, CMP, 23132-3, CBCA, 75815-3, PINR ####[facility] ([id number])[address] [place] [address]Dhpse gap [Moles/Vol]11 mmol/LNormal5-15ProHca [facility] Healthcare North CypressComment on above:Performed By: #### 56410-4, 65006-3, CMP, 38579-0, CBCA, 19646-3, PINR ####[facility] ([id number])[address] [place] [address]YNW [Catalytic activity/Vol]21 U/LNormal0-41 [facility] Children'S HospitalComment on above:Performed By: #### 91955-2, 17765-5, CMP, 34116-4, CBCA, 79514-9, PINR ####[facility] ([id number])[address] [place] [address]Xkmshpprb [Mass/Vol]0.5 mg/dL Normal0.3-1.2ProMedSt. Joseph's Medical CenterComment on above:Performed By: #### 30548-3, 21603-3, CMP, 18479-3, CBCA, 04910-2, PINR ####[facility] ([id number])[address] [place] [address]Umlugjz [Mass/Vol]9.0 mg/dLNormal8.5-10.5Pro[facility] Grove HospitalComment on above: Performed By: #### 24589-4, 82761-9, CMP, 24983-1, CBCA, 55200-0, PINR ####[facility] ([id number])[address] [place] [address], [place] [address]Zssogoqx [Moles/Vol]100 mmol/YTsttuo26-415CdfVbkontHca Houston Healthcare North CypressComment on above:Performed By: #### 00298-7, 95769-2, CMP, 56297-5, CBCA, 09549-0, PINR ####[facility] ([id number])[address] [place] [address], [place] [address]SF6 [Moles/Vol]24 mmol/KMhxjsq53-94 ProMUniversity of California, Irvine Medical CenterComment on above:Performed By: #### 74819-6, 85054-9, CMP, 60855-6, CBCA, 24428-9, PINR ####[facility] ([id number])[address] [place] [address], [place] [address]Ozellifgzp [Mass/Vol]0.97 mg/dL Normal0.40-1.00ProHca [facility] Healthcare North CypressComment on above:Result Comment: METHOD TRACEABLE TO IDMS STANDARDPerformed By: #### 19449-1, 47056-2, CMP, 26898-0, CBCA, 88000-9, PINR ####[facility] ([id number])[address] [place] [address], [place] [address]ZDI/1.73 sq M.predicted among non-blacks MDRD (S/P/Bld) [Vol rate/Area]65 mL/min/{1.73_m2}Normal>59ProHca [facility] Healthcare North CypressComment on above:Result Comment: Reported eGFR is based on theCKD-EPI 2020 equation that doesnot use a race coefficient.Performed By: #### 87898-4, 02956-3, CMP, 75574-9, CBCA, 10869-7, PINR ####[facility] ([id number])[address] [place] [address], [place] [address]Gdlchrz [Mass/Vol]151 mg/rAThpb90-35TplDywewwHca Houston Healthcare North CypressComment on above:Performed By: #### 60614-2, 95378-5, CMP, 24413-8, CBCA, 03881-1, PINR ####[facility] ([id number])[address] [place] [address], [place] [address]Utbxjphcp [Moles/Vol]4.2 mmol/LNormal3.5-5.0[facility] Comment on above:Performed By: #### 68592-4, 61433-0, CMP, 39372-1, CBCA, 27279- 5, PINR ####[facility] ([id number])[address] [place] [address]Qcfjwwy [Mass/Vol]7.0 g/dLNormal6.0-8.0ProHca [facility] Healthcare North CypressComment on above:Performed By: #### 26808-9, 30139-1, CMP, 27741-9, CBCA, 03437-2, PINR ####[facility] ([id number])[address] [place] [address]Uupjrb [Moles/Vol]135 mmol/JFtogxx483-687 ProMUniversity of California, Irvine Medical CenterComment on above:Performed By: #### 20910-8, 51008-7, CMP, 32059-5, CBCA, 68293-9, PINR ####[facility] ([id number])[address] [place] [address], [place] [address]Zfgb nitrogen [Mass/Vol]17 mg/dL Normal5-27ProHca [facility] Healthcare North CypressComment on above:Performed By: #### 05268-1, 58856-0, CMP, 74043-7, CBCA, 45159-4, PINR ####[facility] ([id number])[address] [place] [address]PW CTA ABD AORTA W RUNOFFon 25-50-8329XU CTA ABD AORTA W RUNOFFNormalProHca [facility] Fibrin D-dimer DDU (PPP) [Mass/Vol]on 04-17-2024D THETB5694 ng/mL DDUHigh<255 [facility] Children'S HospitalComment on above:Result Comment: Results >=255ng/mL DDU: Results may beindicative of the presence of VTE. The useof the Wells score and further diagnostictests should be considered. Elevated D-Dimerlevels can alsobe associated with DIC,neoplasm, , trauma and liver disease.Elevated levels of rheumatoid factor may leadto an overestimation of the D-Dimer level.Performed By: #### 35677-6, 80366-4, CMP, 92641-7, CBCA, 84451-1, PINR ####[facility] ([id number])[address] [place] [address]Yvbclfkdji Coagulation.derived (PPP) [Mass/Vol]on 60-72-5556QKMLQDONXD305 mg/xSUegpqq780-043OlkSopmxh [place] HospitalComment on above:Performed By: #### 52173-3, CBCA, CMP #### [facility] ([id number]) [address] [place], [place] [address]XUVQRXOUTG754 mg/qUJlyooo680-075DszMcditz [place] HospitalComment on above:Performed By: #### 07232-6, 21403-9, PINR #### [facility] ([id number]) [address] [place], [place] [address]Qhrjdyy (P nathalie) [Moles/Vol]on 42-11-5413TDYNSSD W/REFLEX0.5 mmol/LNormal0.4-2.0ProNewark Hospital HospitalComment on above:Result Comment: Result did not trigger repeat Lactate, re-order if needed.Performed By: #### 13631-9, CBCA, CMP #### [facility] ([id number]) [address] [place], [place] [address]IZATXZAQGyz 28-74-6076Jweqdrgub [Mass/Vol]1.9 mg/dLNormal1.8-2.6 [facility] HospitalComment on above:Performed By: #### 00089-5, CBCA, CMP #### [facility] ([id number]) [address] [place], [place] [address]Azmutskehay peptide B [Mass/Vol]on 79-90-0124Wqpanulcvty peptide B (Bld) [Mass/Vol]99 pg/mLNormal<100.0ProWayne Hospitalca Miller Children'S HospitalComment on above:Performed By: #### 47309-5, 53564-0, CMP, 49529-5, CBCA, 04610-9, PINR ####[facility] ([id number])[address] [place] [address]AHBNZCGPJFdi 38-14-2150Itbvxmoya [Mass/Vol]4.1 mg/dLNormal 2.4-4.9ProWayne Hospitalca [facility] HospitalComment on above:Performed By: #### 75987-4, CBCA, CMP #### [facility] [place] [facility] ([id number]) [address], [address] [place], [place] [address]VTZSKAV AND INRon 86-10-2644ANE Coag (PPP) [Relative time]1.0 {INR}Normal0.8-1.1ProMedThe Surgical Hospital at Southwoods HospitalComment on above:Performed By: #### 60601-0, CBCA, CMP #### [facility] [place] [facility] ([id number]) [address], [address] [place], [place] [address]CN Coag (PPP) [Time]11.7 sNormal9.8-13.2ProMedThe Surgical Hospital at Southwoods HospitalComment on above:Performed By: #### 33436-7, CBCA, CMP #### [facility] [place] [facility] ([id number]) [address], [address] [place], [place] [address]TF Coag (PPP) [Time]11.6 sNormal9.8-13.2PWilson Memorial HospitalComment on above:Performed By: #### 13529-3, CBCA, CMP #### [facility] [place] [facility] ([id number]) [address], [address] [place], [place] [address]ESW Coag (PPP) [Relative time]1.1 {INR}Normal0.8-1.1PWilson Memorial HospitalComment on above:Performed By: #### 19341-5, 89416-6, PINR #### [facility] [place] [facility] ([id number]) [address], [address] [place], [place] [address]NC Coag (PPP) [Time]13.3 sHigh9.8-13.2PWilson Memorial Hospital Comment on above:Performed By: #### 12986-5, 51547-8, PINR #### [facility] [place] [facility] ([id number]) [address], [address] [place], [place] [address]BWO Coag (PPP) [Relative time]1.1 {INR}Normal0.8-1.1PKeenan Private HospitalComment on above:Performed By: #### 86885-9, 48972-9, CMP, 43408-8, CBCA, 77885-0, PINR ####[facility] ([id number])[address] [place] [address]YB Coag (PPP) [Time]12.8 sNormal 9.8-13.2PKeenan Private HospitalComment on above:Result Comment: NEW REFERENCE RANGEPerformed By: #### 01542-5, 69152-9, CMP, 55648-1, CBCA, 58740-2, PINR ####[facility] ([id number])[address] [place] [address]Ehywoxrr I.cardiac High sensitivity method [Mass/Vol]on 51 HOUR TROP I, HIGH SENSITIVITY5 ng/LNormal<16ProHca Houston Healthcare North CypressComment on above:Performed By: #### 61144-9 ####[facility] ([id number])[address] [place] [address]AUDGOSOB I, HIGH SENSITIVITY4 ng/LNormal<16ProHca Houston Healthcare North CypressComment on above: Performed By: #### 11124-2, 26717-8, CMP, 16918-1, CBCA, 50357-0, PINR ####[facility] ([id number])[address] [place] [address]oPRQ Coag (PPP) [Time]on 25-24-0115fMKO Coag (Bld) [Time] 53 rYglc88-19LjbLkzrgmOhioHealth Marion General HospitalComment on above:Performed By: #### 48503- 9, CBCA, CMP #### [facility] [place] [facility] ([id number]) [address], [address] [place], [place] [address]uQIM Coag (Bld) [Time]117 sCritically dmlq41-33JuoGtfhorOhioHealth Marion General HospitalComment on above:Performed By: #### 26138-6, 49222-2, PINR #### [facility] [place] [facility] ([id number]) [address], [address] [place], [place] [address]uSRT Coag (Bld) [Time]41 vSxdy64-89PcjOvpysbSt. Mary's Medical Center Comment on above:Result Comment: NEW REFERENCE RANGEPerformed By: #### 02144-2, 14805-7, CMP, 97464-4, CBCA, 93915-1, PINR ####[facility] ([id number])[address] [place] [address]BWTB/FLU A+B/RSV by NAAT/Molecularon 32-76-6661JTNP/FLU A+B/RSV by NAAT/MolecularNormalProMedica Elk Grove HospitalComment on above:Performed By: #### COVFLR ####[facility] ([id number])[address] [place] [address], [place] [address]MMIPC METABOLIC PANLon 06-02-2094Umvqi gap [Moles/Vol]10 mmol/LNormal5-15ProHca Houston Healthcare North CypressComment on above:Performed By: #### KYLE YOST, 91919-9 ####[facility] ([id number])[address] [place] [address], [place] [address]Sijgpuc [Mass/Vol]9.1 mg/dLNormal8.5-10.5PKeenan Private HospitalComment on above:Performed By: #### KYLE YOST, 15219-2 ####[facility] ([id number])[address] [place] [address], [place] [address]Tjpivpxk [Moles/Vol]104 mmol/VEcusjn30-442OjtSewszpHca Houston Healthcare North CypressComment on above:Performed By: #### KYLE YOST, 17572-0 ####[facility] ([id number])[address] [place] [address], [place] [address]GY2 [Moles/Vol]21 mmol/XNbo04-46QccAuvuvsKeenan Private HospitalComment on above:Performed By: #### KYLE YOST, 30378-7 ####[facility] ([id number])[address] [place] [address], [place] [address]Xxeifumsvh [Mass/Vol]0.97 mg/dLNormal 0.40-1.00St. Mary's Medical CenterComment on above:Result Comment: METHOD TRACEABLE TO IDMS STANDARDPerformed By: #### KYLE YOST, 81200-0 ####[facility] ([id number])[address] [place] [address] 43362OLU/1.73 sq M.predicted among non-blacks MDRD (S/P/Bld) [Vol rate/Area]65 mL/min/{1.73_m2}Normal>59ProHca Houston Healthcare North CypressComment on above:Result Comment: Reported eGFR is based on theCKD-EPI 2020 equation that doesnot use a race coefficient.Performed By: #### KYLE YOST, 34331-9 ####[facility] ([id number])[address] [place] [address], [place] [address]Fhmqiai [Mass/Vol]115 mg/xKSiet90-15TirVfyfugHca Houston Healthcare North CypressComment on above:Performed By: #### KYLE YOST, 62664-4 ####[facility] ([id number])[address] [place] [address]32[address]Iabgljehy [Moles/Vol]4.3 mmol/LNormal 3.5-5.0ProHca Houston Healthcare North CypressComment on above:Performed By: #### KYLE YOST, 60657-4 ####[facility] ([id number])[address] [place] [address], [place] [address]Wgfmsd [Moles/Vol]135 mmol/NSmxpnu821-475KzzNtecne Fremont HospitalComment on above:Performed By: #### KYLE YOST, 83655-1 ####[facility] ([id number])[address] [place] [address] 17382Woyw nitrogen [Mass/Vol]17 mg/dLNormal5-27ProHca Houston Healthcare North CypressComment on above:Performed By: #### KYLE YOST, 01340-9 ####[facility] ([id number])[address] [place] [address], [place] [address]PXH AND AUTO DIFF on 41-61-0975HSWTHZZR BASOPHIL0.1 X10E9/LNormal0.0-0.2PKeenan Private Hospital Comment on above:Performed By: #### KYLE YOST, 19096-4 ####[facility] ([id number])[address] [place] [address] 490[address]JSLAKPIN NEUTROPHIL6.7 X10E9/LHigh1.5-6.6ProHca Houston Healthcare North CypressComment on above: Performed By: #### KYLE YOST, 69898-2 ####[facility] ([id number])[address] [place] [address] 57623Fifrxidhr/100 WBC (Bld)1.5 %NormalProHca Houston Healthcare North CypressComment on above:Performed By: #### KYLE YOST, 35699-7 ####[facility] ([id number])[address] [place] [address] 16153Xgxegzrsogw (Bld) [#/Vol]0.5 10*3/uLHigh 0.0-0.4ProHca Houston Healthcare North CypressComment on above:Performed By: #### KYLE YOST, 15445-8 ####[facility] ([id number])[address] [place] [address] 78708Iauzewnahau/100 WBC (Bld)5.3 %NormalSt. Mary's Medical CenterComment on above:Performed By: #### KYLE YOST, 33955-3 ####[facility] ([id number])[address] [place] [address] 12692Ovstpuhbdid distribution width (RBC) [Ratio]16.9 %High11.5-15.0ProHca Houston Healthcare North CypressComment on above:Performed By: #### CBCKYLE Lane, 85654-7 ####[facility] ([id number])[address] [place] [address] 60781Ixxoqectff (Bld) [Volume fraction]39.4 %Lfbocf01-01 [facility] Children'S HospitalComment on above:Performed By: #### KYLE YOST, 15744-6 ####[facility] ([id number])[address] [place] [address] 44071Bxijreixze (Bld) [Mass/Vol]12.9 g/pMVsbjus07.7-15.5 [facility]'S HospitalComment on above:Performed By: #### KYLE YOST, 48825-4 ####[facility] ([id number])[address] [place] [address] 18856Arnltebueuw (Bld) [#/Vol]1.9 10*3/uLNormal1.0-3.5Pro[facility] Children'S HospitalComment on above:Performed By: #### KYLE YOST, 15394-1 ####[facility] ([id number])[address] [place] [address] 39927Qtubnxiyvtz/100 WBC (Bld)18.9 %NormalProHca Houston Healthcare North CypressComment on above:Performed By: #### KYLE YOST, 24691-0 ####[facility] ([id number])[address] [place] [address] 67129WWH (RBC) [Entitic mass]29.0 ywBxhhfj42-80MjmZrmfenSt. Mary's Medical CenterComment on above:Performed By: #### KYLE YOST, 16108-6 ####[facility] ([id number])[address] [place] [address] 75579STXV (RBC) [Mass/Vol]32.7 g/vSVswefl27-10IowLrrkppHca Houston Healthcare North CypressComment on above: Performed By: #### KYLE YOST, 60327-9 ####[facility] ([id number])[address] [place] [address] 03859UYZ (RBC) [Entitic vol]89 iDGmrnwo89-414FsgMooqfd Fremont HospitalComment on above: Performed By: #### KYLE YOST, 05625-2 ####[facility] ([id number])[address] [place] [address] 01558Wtakrwmmv (Bld) [#/Vol]0.7 10*3/uLNormal0-0.9St. Mary's Medical CenterComment on above: Performed By: #### KYLE YOST, 24104-4 ####[facility] ([id number])[address] [place] [address] 10691Gckgbkmiv/100 WBC (Bld)6.7 %NormalProHca Houston Healthcare North CypressComment on above:Performed By: #### KYLE YOST, 60809-1 ####[facility] ([id number])[address] [place] [address] 71733Xpvropitpjd/100 WBC (Bld)67.6 %Normal ProMUniversity of California, Irvine Medical CenterComment on above:Performed By: #### KYLE YOST, 14987-8 ####[facility] ([id number])[address] [place] [address] 36297Bjtxwtgn mean volume (Bld) [Entitic vol]7.[address]7-12 [address] Mary's Medical CenterComment on above:Performed By: #### KYLE YOST, 41639-9 ####[facility] ([id number])[address] [place] [address] 00344Ucvpofzit (Bld) [#/Vol]292 10*3/hNNcjlye876-384AvaAlnojx Fremont HospitalComment on above:Performed By: #### CBCAriana, BMP, 48784-0 ####[facility] ([id number])[address] [place] [address] 44693GEH COUNT4.45 X10E12/LNormal3.80-5.20ProHca Houston Healthcare North CypressComment on above:Performed By: #### PRIYANK, BMP, 25075-8 ####[facility] ([id number])[address] [place] [address] 46422CMJ (Bld) [#/Vol]9.9 10*3/uLNormal4.0-11.0St. Mary's Medical CenterComment on above:Performed By: #### KYLE YOST, 07184-3 ####[facility] ([id number])[address] [place] [address] 27571SF CTA ABD AND PELVISon 65-59-8982QN CTA ABD AND PELVISNormalProWayne Hospitalca Miller Children'S HospitalCT CTA CHESTon 84-69-3188AX CTA CHESTNormalSt. Mary's Medical CenterTroponin I.cardiac High sensitivity method [Mass/Vol]on HOUR TROP I, HIGH SENSITIVITY4 ng/LNormal<16ProHca [facility] Healthcare North CypressComment on above:Performed By: #### 27336-8 ####[facility] ([id number])[address] [place] [address] 93734PTPFJQAZ I, HIGH SENSITIVITY3 ng/LNormal<16ProHca [facility] Healthcare North CypressComment on above:Performed By: #### KYLE YOST, 25801-7 ####[facility] ([id number])[address] [place] [address] 52892BNGQ/FLU A+B/RSV by NAAT/Molecularon 97-68-8310ZTFN/FLU A+B/RSV by NAAT/MolecularNormalSt. Mary's Medical CenterComment on above: Performed By: #### COVFLR ####[facility] ([id number])[address] [place] [address] 81293DY CHEST 1 VWon 60-62-4800CW CHEST 1 VW NormalSt. Mary's Medical CenterBasi Metabolic PanelOrdered By: Luis Fernando Strauss on 24-34-4997Zjrcb gap [Moles/Vol]10.8 mmol/LNormal6.0-15.0Memorial Health SystemComment on above:Performed By: #### BMP #### [facility] [address] [place] [address] USACalcium [Mass/Vol]8.9 mg/dLNormal8.6-10.3FParma Community General HospitalComment on above:Performed By: #### BMP #### [facility] [address] [id number] USAChloride [Moles/Vol]98 mmol/VVxjohe54-355KxvpfqxnnMemorial Health SystemComment on above:Performed By: #### BMP #### [facility] [address] [place] [address] USACO2 [Moles/Vol]35.0 mmol/LHigh21.0-31.0Memorial Health SystemComment on above:Performed By: #### BMP #### [facility] [address] [place] [address] USACreatinine [Mass/Vol]0.89 mg/dLNormal0.60-1.20Memorial Health SystemComment on above:Performed By: #### BMP #### [facility] [address] [place] [address] USAGlucose [Mass/Vol]95 mg/iLWtdjtf31-152DbfuchcvzMemorial Health SystemComment on above:Result Comment: Random Glucose Reference Range is dependent on time and content of last meal. Glucose of more than 200 mg/dL in a nonstressed, ambulatory subject supports the diagnosis of Diabetes Mellitus. ADA recommended reference rangePerformed By: #### BMP #### [facility] [address] [place] [address] USAADA recommended reference rangeRandom Glucose Reference Range is dependent on time and content of last meal. Glucose of more than 200 mg/dL in a nonstressed, ambulatory subject supports the diagnosisof Diabetes Mellitus.Potassium [Moles/Vol]4.8 mmol/LNormal3.5-5.1FParma Community General HospitalComment on above:Performed By: #### BMP #### [facility] [address] [id number] USASodium [Moles/Vol]139 mmol/YNmqcak774-780VcazubzybMemorial Health SystemComment on above:Performed By: #### BMP #### [place] [address] USAUrea nitrogen [Mass/Vol]11 mg/dLNormal7-Memorial Health SystemComment on above:Performed By: #### BMP #### [place] [address] USABasic Metabolic Panelon 97-31-5085Zxqlrylhdv Clr Calc Gagmgwqj63.49NormTampa Shriners Hospital Physician GroupComment on above:Result Comment: PERFORMED BY: [place] [address] PATHOLOGIST [employer] FINISHER JOSÉ MIGUEL RON M.D.Performed By: #### BMP #### [place] [address] USAGFR/1.73 sq M.predicted MDRD (S/P/Bld) [Vol rate/Area] mL/min/{1.73_m2}NormalThe [facility] Physician [facility] CenterComment on above:Performed By: #### BMP #### [place] [address] USAComplete Blood Count Auto DiffOrdered By: Ziggy Barraza on 48-41-8048Wanifmwpy (Bld) [#/Vol]0.1 10*3/uLNormal0.0-0.2FParma Community General HospitalComment on above:Result Comment: PERFORMED BY: [place] [address] PATHOLOGIST [employer] FINISHER JOSÉ MIGUEL RON M.D.Performed By: #### RESP PANEL UPP., BIOFIRECOVNOTDE #### [place] [address] USABasophils/100 WBC (Bld)2.4 %Normal.Memorial Health SystemComment on above:Performed By: #### RESP PANEL UPP., BIOFIRECOVNOTDE #### [place] [address] USAEosinophils (Bld) [#/Vol]0.2 10*3/uLNormal0.0-0.45 [facility] Health SystemComment on above:Performed By: #### RESP PANEL UPP., BIOFIRECOVNOTDE #### [place] [address] USAEosinophils/100 WBC (Bld)4.2 %Normal.[facility]orial Health SystemComment on above:Performed By: #### RESP PANEL UPP., BIOFIRECOVNOTDE #### [place] [address] USAErythrocyte distribution width (RBC) [Ratio]19.9 %High 11.9-15.3FParma Community General HospitalComment on above:Performed By: #### RESP PANEL UPP., BIOFIRECOVNOTDE #### [place] [address] USAHematocrit (Bld) [Volume fraction]27.5 %Low34.0-46.4 [facility] Health SystemComment on above:Performed By: #### RESP PANEL UPP., BIOFIRECOVNOTDE #### [place] [address] USAHemoglobin (Bld) [Mass/Vol]8.9 g/dLLow11.8-15.4FParma Community General HospitalComment on above:Performed By: #### RESP PANEL UPP., BIOFIRECOVNOTDE #### [place] [address] USALymphocytes (Bld) [#/Vol]1.0 10*3/uLNormal1.00-4.8 [facility] Health SystemComment on above:Performed By: #### RESP PANEL UPP., BIOFIRECOVNOTDE #### [place] [address] USALymphocytes/100 WBC (Bld)21.7 %Normal.[facility]orial Health SystemComment on above:Performed By: #### RESP PANEL UPP., BIOFIRECOVNOTDE #### Fire[address] Wilson StreetH (RBC) [Entitic mass]30.5 cqMxtjoj07.7-34.3FParma Community General HospitalComment on above:Performed By: #### RESP PANEL UPP., BIOFIRECOVNOTDE #### [place] [address] USAMCV (RBC) [Entitic vol]93.9 vQUyegtq57-635SytonjxyaMemorial Health SystemComment on above:Performed By: #### RESP PANEL UPP., BIOFIRECOVNOTDE #### [place] [address] USAMonocytes (Bld) [#/Vol]0.3 10*3/uLNormal0.0-0.8Memorial Health SystemComment on above:Performed By: #### RESP PANEL UPP., BIOFIRECOVNOTDE #### [place] [address] USAMonocytes/100 WBC (Bld)7.3 %Normal.Memorial Health SystemComment on above:Performed By: #### RESP PANEL UPP., BIOFIRECOVNOTDE #### [place] [address] USANeutrophils (Bld) [#/Vol]3.0 10*3/uLNormal1.8-7.7FParma Community General HospitalComment on above:Performed By: #### RESP PANEL UPP., BIOFIRECOVNOTDE #### [place] [address] USANeutrophils/100 WBC (Bld)64.4 %Normal.Memorial Health SystemComment on above:Performed By: #### RESP PANEL UPP., BIOFIRECOVNOTDE #### [place] [address] USAPlatelet mean volume (Bld) [Entitic vol]7.7 fLNormal 6.3-10.7FParma Community General HospitalComment on above:Performed By: #### RESP PANEL UPP., BIOFIRECOVNOTDE #### [facility] [address] [place] [address] USAPlatelets (Bld) [#/Vol]232 10*3/jGItbayw280-915SijbzdhxuMemorial Health SystemComment on above:Performed By: #### RESP PANEL UPP., BIOFIRECOVNOTDE #### [place] [address] USARBC (Bld) [#/Vol]2.93 10*6/uLLow3.60-5.00Memorial Health SystemComment on above:Performed By: #### RESP PANEL UPP., BIOFIRECOVNOTDE #### [place] [address] USAWBC (Bld) [#/Vol]4.7 10*3/uLNormal3.8-11.6FParma Community General HospitalComment on above:Performed By: #### RESP PANEL UPP., BIOFIRECOVNOTDE #### [place] [address] USAComplete Blood Count Auto Diffon 97-17-1616Ulmg Corpuscular HGB Conc32.5 g/gZOgondn61.0-35.0The [facility] Physician GroupComment on above:Performed By: #### RESP PANEL UPP., BIOFIRECOVNOTDE #### [place] [address] USANRBC%0.2 /100{WBC}Normal0-0.5The [facility] Physician Group Comment on above:Performed By: #### RESP PANEL UPP., BIOFIRECOVNOTDE #### [place] [address] USALeukocytes [#/volume] corrected for nucleated erythrocytes in Blood by Automated counOrdered By: Ziggy Barraza on 04-82-8031GAY corrected for nucl RBC Auto (Bld) [#/Vol]4.7 10*3/uL3.8-11.6FParma Community General HospitalMCHC Auto (RBC) [Mass/Vol]Ordered By: Ziggy Barraza on 54-71-8625VKOX (RBC) [Mass/Vol]32.5 g/dL32.0-35.0Memorial Health SystemNo Panel InformationOrdered By: Luis Fernando Strauss on 15-34-0675Skmypragn GFR (CKD-EPI)> 60.0 mL/MinMemorial Health SystemPharmacy Creatinine Clearance (Chem60.49Memorial Health SystemNucleated erythrocytes [Presence] in Blood by Automated countOrdered By: Ziggy Barraza on 47-26-3163Fjnykopoq RBC Auto Ql (Bld)0.2 /100{WBC}0-0.5FParma Community General HospitalBasic Metabolic Panelon 58-34-3014Kiyxc gap [Moles/Vol]9.9 mmol/L Normal6.0-15.0The [facility] Physician GroupComment on above:Performed By: #### RESP PANEL UPP., BIOFIRECOVNOTDE #### [facility] [address] [place] [address] USACalcium [Mass/Vol]8.3 mg/dLLow8.6-10.3The [facility] Physician GroupComment on above:Performed By: #### RESP PANEL UPP., BIOFIRECOVNOTDE #### [facility] [address] [place] [address] USAChloride [Moles/Vol]97 mmol/TIlv73-795Dth [facility] Physician GroupComment on above:Performed By: #### RESP PANEL UPP., BIOFIRECOVNOTDE #### [facility] [address] [place] [address] USACO2 [Moles/Vol]35.0 mmol/LHigh21.0-31.0The [facility] Physician GroupComment on above:Performed By: #### RESP PANEL UPP., BIOFIRECOVNOTDE #### [facility] [address] [place] [address] USACreatinine [Mass/Vol]0.89 mg/dLNormal0.60-1.20The [facility] Physician GroupComment on above:Performed By: #### RESP PANEL UPP., BIOFIRECOVNOTDE #### [place] [address] USACreatinine Clr Calc Qwpxonws80.10NormalThe [facility] Physician GroupComment on above:Result Comment: PERFORMED BY: [place] [address] PATHOLOGIST [employer] FINISHER JOSÉ MIGUEL RON M.D.Performed By: #### RESP PANEL UPP., BIOFIRECOVNOTDE #### [place] [address] USAGFR/1.73 sq M.predicted MDRD (S/P/Bld) [Vol rate/Area] mL/min/{1.73_m2}NormalThe [facility] Physician GroupComment on above:Performed By: #### RESP PANEL UPP., BIOFIRECOVNOTDE #### [place] [address] USAGlucose [Mass/Vol]98 mg/aDZlofxe61-908Mga [facility] Physician GroupComment on above:Result Comment: Random Glucose Reference Range is dependent on time and content of last meal. Glucose of more than 200 mg/dL in a nonstressed, ambulatory subject supports the diagnosis of Diabetes Mellitus. ADA recommended reference rangePerformed By: #### RESP PANEL UPP., BIOFIRECOVNOTDE #### [place] [address] USAPotassium [Moles/Vol]4.9 mmol/LNormal3.5-5.1The [facility] Physician GroupComment on above:Performed By: #### RESP PANEL UPP., BIOFIRECOVNOTDE #### [place] [address] USASodium [Moles/Vol]137 mmol/MBsaolg021-761Gmv [facility] Physician GroupComment on above:Performed By: #### RESP PANEL UPP., BIOFIRECOVNOTDE #### [place] [address] USAUrea nitrogen [Mass/Vol]12 mg/dLNormal7-25The [facility] Physician GroupComment on above:Performed By: #### RESP PANEL UPP., BIOFIRECOVNOTDE #### [place] [address] USAComplete Blood Count Auto Diffon 54-96-6939Vabuptkyp (Bld) [#/Vol]0.1 10*3/uLNormal0.0-0.2The [facility] Physician GroupComment on above: Result Comment: PERFORMED BY: [place] [address] PATHOLOGIST [employer] FINISHER JOSÉ MIGUEL RON M.D.Performed By: #### RESP PANEL UPP., BIOFIRECOVNOTDE #### [place] [address] USABasophils/100 WBC (Bld)1.4 %Normal.The [facility] Physician GroupComment on above:Performed By: #### RESP PANEL UPP., BIOFIRECOVNOTDE #### [place] [address] USAEosinophils (Bld) [#/Vol]0.2 10*3/uLNormal0.0-0.45The [facility] Physician GroupComment on above:Performed By: #### RESP PANEL UPP., BIOFIRECOVNOTDE #### [place] [address] USAEosinophils/100 WBC (Bld)3.8 %Normal.The [facility] Physician GroupComment on above:Performed By: #### RESP PANEL UPP., BIOFIRECOVNOTDE #### [place] [address] USAErythrocyte distribution width (RBC) [Ratio]20.9 %High 11.9-15.3The [facility] Physician GroupComment on above:Performed By: #### RESP PANEL UPP., BIOFIRECOVNOTDE #### [place] [address] USAHematocrit (Bld) [Volume fraction]24.6 %Low34.0-46.4The [facility] Physician GroupComment on above:Performed By: #### RESP PANEL UPP., BIOFIRECOVNOTDE #### [place] [address] USAHemoglobin (Bld) [Mass/Vol]7.9 g/dLLow11.8-15.4The [facility] Physician GroupComment on above:Performed By: #### RESP PANEL UPP., BIOFIRECOVNOTDE #### [place] [address] USALymphocytes (Bld) [#/Vol]1.2 10*3/uLNormal1.00-4.8The [facility] Physician GroupComment on above:Performed By: #### RESP PANEL UPP., BIOFIRECOVNOTDE #### [place] [address] USALymphocytes/100 WBC (Bld)22.7 %Normal.The [facility] Physician GroupComment on above:Performed By: #### RESP PANEL UPP., BIOFIRECOVNOTDE #### [place] [address] USAMCH (RBC) [Entitic mass]30.3 kcYdlche19.7-34.3The [facility] Physician GroupComment on above:Performed By: #### RESP PANEL UPP., BIOFIRECOVNOTDE #### [place] [address] USAMCV (RBC) [Entitic vol]94.3 iNAydolh53-120Zxx [facility] Physician GroupComment on above:Performed By: #### RESP PANEL UPP., BIOFIRECOVNOTDE #### [place] [address] USAMean Corpuscular HGB Conc32.1 g/uJVafhkl08.0-35.0The [facility] Physician GroupComment on above:Performed By: #### RESP PANEL UPP., BIOFIRECOVNOTDE #### [place] [address] USAMonocytes (Bld) [#/Vol]0.4 10*3/uLNormal0.0-0.8The [facility] Physician GroupComment on above:Performed By: #### RESP PANEL UPP., BIOFIRECOVNOTDE #### [facility] [address] [place] [address] USAMonocytes/100 WBC (Bld)7.6 %Normal.The [facility] Physician GroupComment on above:Performed By: #### RESP PANEL UPP., BIOFIRECOVNOTDE #### [facility] [address] [place] [address] USANeutrophils (Bld) [#/Vol]3.3 10*3/uLNormal1.8-7.7The [facility] Physician GroupComment on above:Performed By: #### RESP PANEL UPP., BIOFIRECOVNOTDE #### [place] [address] USANeutrophils/100 WBC (Bld)64.5 %Normal.The [facility] Physician GroupComment on above:Performed By: #### RESP PANEL UPP., BIOFIRECOVNOTDE #### [place] [address] USANRBC%0.1 /100{WBC}Normal0-0.5The [facility] Physician Group Comment on above:Performed By: #### RESP PANEL UPP., BIOFIRECOVNOTDE #### [place] [address] USAPlatelet mean volume (Bld) [Entitic vol]7.8 fLNormal 6.3-10.7The [facility] Physician GroupComment on above:Performed By: #### RESP PANEL UPP., BIOFIRECOVNOTDE #### [place] [address] USAPlatelets (Bld) [#/Vol]224 10*3/gDSwrege314-185Mlb [facility] Physician GroupComment on above:Performed By: #### RESP PANEL UPP., BIOFIRECOVNOTDE #### [facility] [address] [place] [address] USARBC (Bld) [#/Vol]2.61 10*6/uLLow3.60-5.00The [facility] Physician GroupComment on above:Performed By: #### RESP PANEL UPP., BIOFIRECOVNOTDE #### [place] [address] USAWBC (Bld) [#/Vol]5.2 10*3/uLNormal3.8-11.6The [facility] Physician GroupComment on above:Performed By: #### RESP PANEL UPP., BIOFIRECOVNOTDE #### [place] [address] USAAlbumin [Mass/volume] in Serum or Plasma by Bromocresol green (BCG) dye binding methoOrdered By: Nabila Rao on 90-28-3733Iyypsak BCG dye [Mass/Vol]2.9 g/dLLow3.5-5.7FParma Community General HospitalComplete Blood Count Auto Diffon 02-70-0987Tomdrbzbf (Bld) [#/Vol]0.1 10*3/uLNormal0.0-0.2The [facility] Physician GroupComment on above:Result Comment: PERFORMED BY: [place] [address] PATHOLOGIST [employer] FINISHER JOSÉ MIGUEL RON M.D.Performed By: #### RESP PANEL UPP., BIOFIRECOVNOTDE #### [place] [address] USABasophils/100 WBC (Bld)1.5 %Normal.The [facility] Physician GroupComment on above:Performed By: #### RESP PANEL UPP., BIOFIRECOVNOTDE #### [place] [address] USAEosinophils (Bld) [#/Vol]0.2 10*3/uLNormal0.0-0.45The [facility] Physician GroupComment on above:Performed By: #### RESP PANEL UPP., BIOFIRECOVNOTDE #### [place] [address] USAEosinophils/100 WBC (Bld)2.9 %Normal.[facility] GroupComment on above:Performed By: #### RESP PANEL UPP., BIOFIRECOVNOTDE #### [place] [address] USAErythrocyte distribution width (RBC) [Ratio]20.9 %High 11.9-15.3[facility] GroupComment on above:Performed By: #### RESP PANEL UPP., BIOFIRECOVNOTDE #### [place] [address] USAHematocrit (Bld) [Volume fraction]23.6 %Low34.0-46.4[facility] GroupComment on above:Performed By: #### RESP PANEL UPP., BIOFIRECOVNOTDE #### [place] [address] USAHemoglobin (Bld) [Mass/Vol]7.7 g/dLLow11.8-15.4[facility] Physician GroupComment on above:Performed By: #### RESP PANEL UPP., BIOFIRECOVNOTDE #### [place] [address] USALymphocytes (Bld) [#/Vol]1.2 10*3/uLNormal1.00-4.8The [facility] Physician GroupComment on above:Performed By: #### RESP PANEL UPP., BIOFIRECOVNOTDE #### [place] [address] USALymphocytes/100 WBC (Bld)20.4 %Normal.The [facility] Physician GroupComment on above:Performed By: #### RESP PANEL UPP., BIOFIRECOVNOTDE #### [place] [address] USAMCH (RBC) [Entitic mass]30.4 dkGywuwe88.7-34.3The [facility] Physician GroupComment on above:Performed By: #### RESP PANEL UPP., BIOFIRECOVNOTDE #### [place] [address] USAMCV (RBC) [Entitic vol]93.4 fPOzxudl02-561Lpz [facility] Physician GroupComment on above:Performed By: #### RESP PANEL UPP., BIOFIRECOVNOTDE #### [place] [address] USAMean Corpuscular HGB Conc32.6 g/zLWlkvlk32.0-35.0The [facility] Physician GroupComment on above:Performed By: #### RESP PANEL UPP., BIOFIRECOVNOTDE #### [place] [address] USAMonocytes (Bld) [#/Vol]0.5 10*3/uLNormal0.0-0.8The [facility] Physician GroupComment on above:Performed By: #### RESP PANEL UPP., BIOFIRECOVNOTDE #### [place] [address] USAMonocytes/100 WBC (Bld)9.3 %Normal.The [facility] Physician GroupComment on above:Performed By: #### RESP PANEL UPP., BIOFIRECOVNOTDE #### [place] [address] USANeutrophils (Bld) [#/Vol]3.7 10*3/uLNormal1.8-7.7The [facility] Physician GroupComment on above:Performed By: #### RESP PANEL UPP., BIOFIRECOVNOTDE #### [place] [address] USANeutrophils/100 WBC (Bld)65.9 %Normal.The [facility] Physician GroupComment on above:Performed By: #### RESP PANEL UPP., BIOFIRECOVNOTDE #### [place] [address] USANRBC%0.2 /100{WBC}Normal0-0.5The [facility] Comment on above:Performed By: #### RESP PANEL UPP., BIOFIRECOVNOTDE #### [place] [address] USAPlatelet mean volume (Bld) [Entitic vol]7.7 fLNormal 6.3-10.7The [facility] Physician GroupComment on above:Performed By: #### RESP PANEL UPP., BIOFIRECOVNOTDE #### [place] [address] USAPlatelets (Bld) [#/Vol]237 10*3/eSVdrzbi815-104Zyu [facility] Physician GroupComment on above:Performed By: #### RESP PANEL UPP., BIOFIRECOVNOTDE #### [place] [address] USARBC (Bld) [#/Vol]2.53 10*6/uLLow3.60-5.00The [facility] Physician GroupComment on above:Performed By: #### RESP PANEL UPP., BIOFIRECOVNOTDE #### [place] [address] USAWBC (Bld) [#/Vol]5.7 10*3/uLNormal3.8-11.6The [facility] Physician GroupComment on above:Performed By: #### RESP PANEL UPP., BIOFIRECOVNOTDE #### [place] [address] USAComprehensive Metabolic Panelon 58-62-7995Tuqexaq [Mass/Vol]2.9 g/dLLow3.5-5.7The [facility] Physician GroupComment on above: Performed By: #### RESP PANEL UPP., BIOFIRECOVNOTDE #### [place] [address] USAAnion gap [Moles/Vol]9.1 mmol/LNormal6.0-15.0The [facility] Physician GroupComment on above:Performed By: #### RESP PANEL UPP., BIOFIRECOVNOTDE #### [place] [address] USACalcium [Mass/Vol]8.3 mg/dLLow8.6-10.3The [facility] Physician GroupComment on above:Performed By: #### RESP PANEL UPP., BIOFIRECOVNOTDE #### [facility] [address] [place] [address] USAChloride [Moles/Vol]100 mmol/NZqnpjd27-045Xpw [facility] Physician GroupComment on above:Performed By: #### RESP PANEL UPP., BIOFIRECOVNOTDE #### [place] [address] USACO2 [Moles/Vol]32.6 mmol/LHigh21.0-31.0The [facility] Physician GroupComment on above:Performed By: #### RESP PANEL UPP., BIOFIRECOVNOTDE #### [place] [address] USACreatinine [Mass/Vol]0.79 mg/dLNormal0.60-1.20The [facility] Physician GroupComment on above:Performed By: #### RESP PANEL UPP., BIOFIRECOVNOTDE #### [place] [address] USACreatinine Clr Calc Daytxjsz45.96NormalThe [facility] Physician GroupComment on above:Performed By: #### RESP PANEL UPP., BIOFIRECOVNOTDE #### [place] [address] USAGFR/1.73 sq M.predicted MDRD (S/P/Bld) [Vol rate/Area] mL/min/{1.73_m2}NormalThe [facility] Physician GroupComment on above:Performed By: #### RESP PANEL UPP., BIOFIRECOVNOTDE #### [place] [address] USAGlucose [Mass/Vol]96 mg/pOWjwmil70-404Wlg [facility] Physician GroupComment on above:Result Comment: Random Glucose Reference Range is dependent on time and content of last meal. Glucose of more than 200 mg/dL in a nonstressed, ambulatory subject supports the diagnosis of Diabetes Mellitus. ADA recommended reference rangePerformed By: #### RESP PANEL UPP., BIOFIRECOVNOTDE #### [place] [address] USAPotassium [Moles/Vol]3.7 mmol/LNormal3.5-5.1The [facility] Physician GroupComment on above:Performed By: #### RESP PANEL UPP., BIOFIRECOVNOTDE #### [place] [address] USASodium [Moles/Vol]138 mmol/GEgfdpc187-149Mxr [facility] Physician GroupComment on above:Performed By: #### RESP PANEL UPP., BIOFIRECOVNOTDE #### [place] [address] USAUrea nitrogen [Mass/Vol]9 mg/dLNormal7-e [facility] Physician GroupComment on above:Performed By: #### RESP PANEL UPP., BIOFIRECOVNOTDE #### [place] [address] USAComprehensive Metabolic PanelOrdered By: Naibla Rao on 25-40-5218Jlvdwsj/Globulin [Mass ratio]1.1 {ratio}[facility]onton CampusComment on above:Performed By: #### RESP PANEL UPP., BIOFIRECOVNOTDE #### [place] [address] USAALP [Catalytic activity/Vol]155 U/RSutm51-649OtnswtjjgMemorial Health SystemComment on above:Performed By: #### RESP PANEL UPP., BIOFIRECOVNOTDE #### [place] [address] USAALT [Catalytic activity/Vol]13 U/LNormal7-52[facility] Health SystemComment on above:Performed By: #### RESP PANEL UPP., BIOFIRECOVNOTDE #### [place] [address] USAAST [Catalytic activity/Vol]15 U/SIabaam09-41CezbmwrlkMemorial Health SystemComment on above:Performed By: #### RESP PANEL UPP., BIOFIRECOVNOTDE #### [place] [address] USABilirubin [Mass/Vol]0.3 mg/dLNormal0.3-1.0[facility] Health SystemComment on above:Performed By: #### RESP PANEL UPP., BIOFIRECOVNOTDE #### [place] [address] USAGlobulin (S) [Mass/Vol]2.6 g/dLNormalMemorial Health SystemComment on above:Performed By: #### RESP PANEL UPP., BIOFIRECOVNOTDE #### [place] [address] USAProtein [Mass/Vol]5.5 g/dLLow6.4-8.9[facility] Health SystemComment on above:Performed By: #### RESP PANEL UPP., BIOFIRECOVNOTDE #### [place] [address] USAFerritinOrdered By: Nabila Rao on 77-08-7777Ihqlbbth [Mass/Vol]338.7 ng/yBLfgw95.0-306.8[facility]orial Health SystemComment on above:Performed By: #### HS TROP, CK, BNP, BMP, CBC, PT, PTT #### [place] [address] USAFolate [Mass/volume] in Serum or PlasmaOrdered By: Nabila Rao on 49-61-7546Tzjwnj [Mass/Vol]6.5 ng/mL>5.9[facility]orial Health SystemComment on above:Folate reference range: >5.9 ng/mlThe WHO technical consultation on folate and vitamin q60hfboomuyujtx has determined that folate concentrations lessthan 4 ng/ml are considered deficient.Iron and TIBC Profileon 01-20-2024% Iron Qhlrzwrioa67.3 %Dmg93-85Qzi [facility] Physician GroupComment on above:Performed By: #### RESP PANEL UPP., BIOFIRECOVNOTDE #### [place] [address] USATotal Iron Binding Dtinuprl835 ug/tACfj762-888Xov [facility] Physician GroupComment on above:Performed By: #### RESP PANEL UPP., BIOFIRECOVNOTDE #### [facility] [address] [place] [address] USAIron and TIBC ProfileOrdered By: Nabila Rao on 90-41-1779Owja [Mass/Vol]24 ug/gFAth53-349BghpxpveuMemorial Health System Comment on above:Performed By: #### RESP PANEL UPP., BIOFIRECOVNOTDE #### [facility] [address] [place] [address] USATransferrin [Mass/Vol]166 mg/gFEtk774-198JokkrqednMemorial Health SystemComment on above:Performed By: #### RESP PANEL UPP., BIOFIRECOVNOTDE #### [place] [address] USAIron binding capacity [Mass/volume] in Serum or Plasma Ordered By: Nabila Rao on 25-28-0033Vrxj binding capacity [Mass/Vol]232 ug/dL Ial139-021FkherrthzMemorial Health SystemIron saturation [Mass Fraction] in Serum or PlasmaOrdered By: Nabila Rao on 01-42-9300Hiur saturation [Mass fraction]10.3 %Jhf79-88NlabwtleyMemorial Health SystemMagnesiumOrdered By: Nabila Rao on 67-39-9969Jlcraodhp [Mass/Vol]1.8 mg/dLLow1.9-2.7FParma Community General HospitalComment on above:Performed By: #### RESP PANEL UPP., BIOFIRECOVNOTDE #### [facility] [address] [place] [address] USAPhosphorusOrdered By: Nabila Rao on 70-45-3324Veyscbjul [Mass/Vol]4.2 mg/dLNormal2.5-4.5FParma Community General HospitalComment on above:Performed By: #### RESP PANEL UPP., BIOFIRECOVNOTDE #### [place] [address] USAThyroid Stimulating HormoneOrdered By: Nabila Rao on 73-70-8275WNI Qn3.03 m[IU]/LNormal0.45-5.33[facility] Comment on above:Result Comment: PERFORMED BY: [place] [address] PATHOLOGIST [employer]ISHER JOSÉ MIGUEL RON M.D.Performed By: #### HS TROP, CK, BNP, BMP, CBC, PT, PTT #### [place] [id number] USATroponin I High Sensitivityon 29-33-9907Lkhxpwwj I High Sensitivity8.4 pg/mLNormal0.0-15.0The [facility] Physician GroupComment on above: Result Comment: PERFORMED BY: [place] [address] PATHOLOGIST [employer] FINISHER JOSÉ MIGUEL RON M.D.Performed By: #### HS TROP, CK, BNP, BMP, CBC, PT, PTT #### [place] [id number] USATroponin I.cardiac [Mass/volume] in Serum or Plasma by Detection limit <= 0.01 ng/Ordered By: Nabila Rao on 94-68-4937Xqavrhvp I.cardiac DL <= 0.01 ng/mL [Mass/Vol]8.4 pg/mL0.0-15.0Memorial Health SystemUS venous duplex LE BIon 35-19-1356IC venous duplex LE [facility] Main [address] [address] Ultrasound Report Signed Patient: Jonatan Olivarez MR#: [id number] : 1960 Acct:[id number] Age/Sex: 63 / F ADM Date: 01/19/24 Loc: Room: [address] [place] [address] Type: ADM IN Attending Dr: Luis Fernando Strauss MD Ordering Provider: Ziggy Barraza MD Date of Service: 01/20/24 US/US venous duplex LE BI: subsegmental PE; peptic ulcer disease Copies to: MD Luis Fernando Arevalo MD BILATERAL LOWER EXTREMITY VENOUS DUPLEX INDICATION: PE. PROCEDURE: Color-flow duplex scanning is used to interrogate the deep venous system of the right and left lower extremities. The common femoral vein, femoral vein and popliteal vein show good compressibility with normal proximal and distal augmentation. The calf veins are compressible. US/US venous duplex LE IMPRESSION: NO EVIDENCE FOR DEEP VEIN THROMBOSIS OR PROXIMAL SUPERFICIAL THROMBOPHLEBITIS IN THE RIGHT OR LEFT LOWER EXTREMITY. Impression dictated by: Artur Guo MD01/20/2024 1:32 PM Dictation Location: [facility]04 Tech: Kirsten Cespedes Transcribed By: [facility] 01/20/24 1332 Dictated By: Artur Guo MD 01/20/24 1329 Signed By: 01/20/24 1332[facility] Physician GroupVit. B12/Folate ProfileOrdered By: Nabila Rao on 97-00-6892Uxerqjmse (Vitamin B12) [Mass/Vol]398 pg/mLNormal 180-914Memorial Health SystemComment on above:Performed By: #### HS TROP, CK, BNP, BMP, CBC, PT, PTT #### [facility] [address] [place] [address] USAVit. B12/Folate Profileon 68-27-9362Wvoohu7.5 ng/mLNormal >5.9The [facility] Physician [facility] CenterComment on above:Result Comment: Folate reference range: >5.9 ng/ml The WHO technical consultation on folate and vitamin b12 deficiencies has determined that folate concentrations less than 4 ng/ml are considered deficient.Performed By: #### HS TROP, CK, BNP, BMP, CBC, PT, PTT #### [facility] [address] [place] [address] USAActivated partial thromboplastin time (aPTT) in platelet poor plasma by coagulation aOrdered By: Carlo Grimaldo on 75-45-3645mICV Coag (PPP) [Time]31.2 s25.1-36.5FParma Community General HospitalComment on above:A hematocrit value greater than 55% may lead to inaccurate results in coagulation testing. Patientshaving hematocrit values >55% require a special collection tube for coagulation studies. Please contact the laboratory at [phone] for redraw instructions.Automated basophil %Ordered By: Nabila Rao on 01-19-2024 Basophils/100 WBC (Bld)0.9 %Normal.Memorial Health SystemComment on above:Performed By: #### RESP PANEL UPP., BIOFIRECOVNOTDE #### [place] [address] USAAutomated basophil countOrdered By: Nabila Rao on 33-00-6326Lhrxjphra (Bld) [#/Vol]0.1 10*3/uLNormal0.0-0.2FParma Community General HospitalComment on above:Result Comment: PERFORMED BY: [place] [address] PATHOLOGIST [employer] FINISHER JOSÉ MIGUEL RON M.D.Performed By: #### RESP PANEL UPP., BIOFIRECOVNOTDE #### [place] [address] USAAutomated blood monocyte countOrdered By: Nabila Rao on 35-73-3711Ofojywfzz (Bld) [#/Vol]0.5 10*3/uLNormal0.0-0.8[facility]orial Health SystemComment on above:Performed By: #### RESP PANEL UPP., BIOFIRECOVNOTDE #### [place] [address] USAAutomated eosinophil %Ordered By: Nabila Rao on 96-01-5905Gogrpjtusfl/100 WBC (Bld)2.2 %Normal.[facility] Comment on above:Performed By: #### RESP PANEL UPP., BIOFIRECOVNOTDE #### [place] [address] USAAutomated eosinophil countOrdered By: Nabila Rao on 99-11-8018Xrllhwyujrl (Bld) [#/Vol]0.2 10*3/uLNormal0.0-0.45Memorial Health SystemComment on above:Performed By: #### RESP PANEL UPP., BIOFIRECOVNOTDE #### [facility] [address] [place] [address] USAAutomated monocyte %Ordered By: Nabila Rao on 01-19-2024 Monocytes/100 WBC (Bld)6.8 %Normal.[facility]orial Health SystemComment on above:Performed By: #### RESP PANEL UPP., BIOFIRECOVNOTDE #### [place] [address] USAAutomated neutrophil %Ordered By: Nabila Rao on 63-98-7487Wzsodachgnl/100 WBC (Bld)70.9 %Normal.[facility]orial Health SystemComment on above:Performed By: #### RESP PANEL UPP., BIOFIRECOVNOTDE #### [place] [address] USABNP ser/plasOrdered By: Carlo Grimaldo on 01-19-2024 Natriuretic peptide B (Bld) [Mass/Vol]618.0 pg/mLHigh5-100Memorial Health SystemComment on above:Result Comment: PERFORMED BY: [place] [address] PATHOLOGIST [employer] FINISHER JOSÉ MIGUEL RON M.D.Performed By: #### HS TROP, CK, BNP, BMP, CBC, PT, PTT #### [place] [address] USABasic Metabolic Panelon 63-44-1726Bejhvyfnxf Clr Calc Lwivirxd55.[address] [place] [address] Physician GroupComment on above:Result Comment: PERFORMED BY: [place] [address] PATHOLOGIST [employer] FINISHER JOSÉ MIGUEL RON M.D.Performed By: #### HS TROP, CK, BNP, BMP, CBC, PT, PTT #### [place] [address] USAGFR/1.73 sq M.predicted MDRD (S/P/Bld) [Vol rate/Area] mL/min/{1.73_m2}NormalThe [facility] Physician GroupComment on above:Performed By: #### HS TROP, CK, BNP, BMP, CBC, PT, PTT #### [facility] [address] [place] [address] USABioFire Not Detectedon 93-39-3907WraYxju Not DetectedNot detectedNormalNot DetecteThe [facility] Physician GroupComment on above:Result Comment: This is a duplicate RP2.1 COVID (PCR) result to be used for statistical tracking purpose only. PERFORMED BY: [place] [address] PATHOLOGIST [employer] FINISHER JOSÉ MIGUEL RON M.D.Performed By: #### RESP PANEL UPP., BIOFIRECOVNOTDE #### [place] [address] USACOVID-19 Detected/Not DetectedOrdered By: Carlo Grimaldo on 51-54-4423UPXG-CoV-2 (COVID-19) RNA JANIA+non-probe Ql (Nph)Not detectedNot UC HealthComment on above:This is a duplicate RP2.1 COVID (PCR) result to be used for statistical tracking purpose only.CT abdomen pelvis w conon 03-58-6948NZ abdomen pelvis w [facility] [place] [address] [place] [address] CT Scan Report Signed Patient: Jonatan Olivarez MR#: [id number] : 1960 Acct:[id number] Age/Sex: 63 / F ADM Date: 01/19/24 Loc: ER Room: Type: [facility] ER Attending Dr: Copies to: Carlo Grimaldo DO Ordering Provider: Carlo Grimaldo DO Date of Service: 01/19/24 CT/CT angio chest PE protocol: f ([id number]) CT/CT abdomen pelvis w con: f CLINICAL DATA: Intermittent chest pain and arm pain today . Recent history of bleeding ulcer. CT PULMONARY ANGIOGRAM WITH CONTRAST COMPARISON: None TECHNIQUE: Spiral images were obtained through the chest following intravenous administration of 90 mL of Isovue 370. Images were reviewed using both narrow and wide window settings. Sagittal, coronal and 3 D volume-rendered reconstructions were performed and reviewed. This CT exam was performed using one or more following dose reduction techniques: Automated exposure control, adjustment of the mA and/or kV according to patient size, or use of iterative reconstruction technique. FINDINGS: The heart is slightly prominent. There is no pericardial effusion. Coronary artery disease is seen. No aortic aneurysm or dissection is identified. There is atherosclerotic plaque involving the aorta and proximal great vessels. The pulmonary arteries prominent. There is adequate opacification of the pulmonary arteries. There is an intraluminal filling defect involving a subsegmental pulmonary artery branch to the left lower lobe which may be a small isolated embolus. No additional pulmonary emboli are identified. There are prevascular, paratracheal and AP window lymph nodes. There are smaller nodes at the heather. Mild degenerative changes are present at the spine.. Minor apical scarring is noted. There is also atelectasis or scarring at the bases. There is no focal consolidation, pleural effusion or pneumothorax. A punctate nodular density is visualized at the right apex, too small to further characterize. CT/CT angio chest PE protocol IMPRESSION: POTENTIAL SMALL SOLITARY PERIPHERAL LEFT LOWER LOBE PULMONARY EMBOLUS. SCARRING OR ATELECTASIS. MILD CARDIOMEGALY. NONSPECIFIC LYMPH NODES. Comment: Findings were discussed with Dr. Grimaldo [place] [address] ABDOMEN AND PELVIS WITH CONTRAST COMPARISON: None Spiral images were obtained through the abdomen pelvis following 90 mL Isovue- 370. This CT exam was performed using one or more following dose reduction techniques: Automated exposure control, adjustment of the mA and/or kV according to patient size, or use of iterative reconstruction technique. No intrahepatic masses are identified. There is intra and extrahepatic biliary dilatation, without common duct stones. This may relate to previous cholecystectomy. The spleen and pancreas show no acute findings. Bilateral adrenal nodularity is present right measuring 1.7 cm and left 2.1 cm. The right kidney is atrophic. The nephrograms are symmetric. No hydronephrosis is seen. There is prominent atherosclerotic plaque involving the aorta and iliac arteries. There is aorto bifemoral bypass grafting. There are tiny lymph nodes. No ascites is seen. There is a large anterior abdominal ventral hernia with widemouth containing transverse colon and nondistended small bowel loops. The intra-abdominal small bowel loops are normal caliber. There is mild stool throughout the colon. Reverse S-shaped thoracal lumbar scoliotic curvature and degenerative changes are seen at the spine. There is slight anterolisthesis of L2 with respect to adjacent vertebra. Images through the pelvis show normal caliber small bowel loops. No appendiceal inflammation is seen. There is mild distal colonic stool. No diverticular disease is noted. There is suggestion of a metallic clip within the cecum. The uterus appears to be surgically absent. No urinary bladder abnormalities are seen. A femorofemoral bypass graft is noted. There is also a stent at the left upper thigh and hemostasis clips in the groin region bilaterally. No ascites is seen. A subcutaneous soft tissue nodule is present in the left paraumbilical region, approximately 2.4 cm in size. This might be a sebaceous cyst. There is prominent degenerative change at the right hip. IMPRESSION: BILIARY DILATATION THAT PROBABLY RELATES TO PREVIOUS CHOLECYSTECTOMY. BILATERAL ADRENAL NODULARITY. THERE ARE NO PRIORS TO ASSESS STABILITY ATROPHIC RIGHT KIDNEY. LARGE ANTERIOR ABDOMINAL WALL HERNIA CONTAINING COLON AND NONDISTENDED SMALL BOWEL. NO BOWEL OR URINARY TRACT OBSTRUCTION. NO OTHER ACUTE FINDINGS. Impression dictated by: Lindsey Menchaca M.D.01/19/2024 7:09 PM Dictation Location: [place] [address] Transcribed By: [facility] 01/19/241908 Dictated By: Lindsey Menchaca MD 01/19/24 (more content not included)...NormalThe [facility] Physician GroupCalcium [Mass/volume] in Serum or PlasmaOrdered By: Carlo Grimaldo on 39-74-0410Jqsnlxg [Mass/Vol]8.7 mg/dLNormal8.6-10.3FParma Community General HospitalComment on above:Performed By: #### HS TROP, CK, BNP, BMP, CBC, PT, PTT #### [facility] [address] [place] [address] USACarbon dioxide, total [Moles/volume] in Serum or Plasma Ordered By: Carlo Grimaldo on 31-97-3328XF1 [Moles/Vol]30.7 mmol/POjtdyr90.0-31.0 [facility] Health SystemComment on above:Performed By: #### HS TROP, CK, BNP, BMP, CBC, PT, PTT #### [facility] [address] [place] [address] USAChloride [Moles/volume] in Serum or PlasmaOrdered By: Carlo Grimaldo on 00-63-2294Fqlnfuiy [Moles/Vol]97 mmol/JZxx74-515NwlbdsvskMemorial Health SystemComment on above:Performed By: #### HS TROP, CK, BNP, BMP, CBC, PT, PTT #### [place] [address] USAComplete Blood Count Auto Diffon 74-42-9285Eavwrjkef (Bld) [#/Vol]0.1 10*3/uLNormal0.0-0.2The [facility] Physician GroupComment on above: Result Comment: PERFORMED BY: [place] [address] PATHOLOGIST [employer] FINISHER JOSÉ MIGUEL RON M.D.Performed By: #### HS TROP, CK, BNP, BMP, CBC, PT, PTT #### [place] [address] USABasophils/100 WBC (Bld)1.8 %Normal.The [facility] Physician GroupComment on above:Performed By: #### HS TROP, CK, BNP, BMP, CBC, PT, PTT #### [place] [address] USAEosinophils (Bld) [#/Vol]0.2 10*3/uLNormal0.0-0.45The [facility] Physician GroupComment on above:Performed By: #### HS TROP, CK, BNP, BMP, CBC, PT, PTT #### [place] [address] USAEosinophils/100 WBC (Bld)2.5 %Normal.The [facility] Physician GroupComment on above:Performed By: #### HS TROP, CK, BNP, BMP, CBC, PT, PTT #### [place] [address] USAErythrocyte distribution width (RBC) [Ratio]20.2 %High 11.9-15.3The [facility] Physician GroupComment on above:Performed By: #### HS TROP, CK, BNP, BMP, CBC, PT, PTT #### [address] [place] [address] USAHematocrit (Bld) [Volume fraction]23.6 %Low34.0-46.4The [facility] Physician GroupComment on above:Performed By: #### HS TROP, CK, BNP, BMP, CBC, PT, PTT #### [place] [address] USAHemoglobin (Bld) [Mass/Vol]7.7 g/dLLow11.8-15.4The [facility] Physician GroupComment on above:Performed By: #### HS TROP, CK, BNP, BMP, CBC, PT, PTT #### [place] [address] USALymphocytes (Bld) [#/Vol]1.2 10*3/uLNormal1.00-4.8The [facility] Physician GroupComment on above:Performed By: #### HS TROP, CK, BNP, BMP, CBC, PT, PTT #### [place] [address] USALymphocytes/100 WBC (Bld)19.9 %Normal.The [facility] Physician GroupComment on above:Performed By: #### HS TROP, CK, BNP, BMP, CBC, PT, PTT #### [address] (RBC) [Entitic mass]30.4 xkFgalqh08.7-34.3The [facility] Physician GroupComment on above:Performed By: #### HS TROP, CK, BNP, BMP, CBC, PT, PTT #### [address]V (RBC) [Entitic vol]92.7 vSUdkpri59-484Zsk [facility] Physician GroupComment on above:Performed By: #### HS TROP, CK, BNP, BMP, CBC, PT, PTT #### [place] [address] USAMean Corpuscular HGB Conc32.8 g/bMRjbzod27.0-35.0[facility] Physician GroupComment on above:Performed By: #### HS TROP, CK, BNP, BMP, CBC, PT, PTT #### [place] [address] USAMonocytes (Bld) [#/Vol]0.5 10*3/uLNormal0.0-0.8[facility] Physician GroupComment on above:Performed By: #### HS TROP, CK, BNP, BMP, CBC, PT, PTT #### [place] [address] USAMonocytes/100 WBC (Bld)7.9 %Normal.[facility] Physician GroupComment on above:Performed By: #### HS TROP, CK, BNP, BMP, CBC, PT, PTT #### [place] [address] USANeutrophils (Bld) [#/Vol]4.2 10*3/uLNormal1.8-7.7[facility] Physician GroupComment on above:Performed By: #### HS TROP, CK, BNP, BMP, CBC, PT, PTT #### [place] [address] USANeutrophils/100 WBC (Bld)67.9 %Normal.[facility] Physician GroupComment on above:Performed By: #### HS TROP, CK, BNP, BMP, CBC, PT, PTT #### [place] [address] USANRBC%0.1 /100{WBC}Normal0-0.5[facility] Physician Group Comment on above:Performed By: #### HS TROP, CK, BNP, BMP, CBC, PT, PTT #### [place] [address] USAPlatelet mean volume (Bld) [Entitic vol]7.3 fLNormal 6.3-10.7[facility] Physician GroupComment on above:Performed By: #### HS TROP, CK, BNP, BMP, CBC, PT, PTT #### [place] [address] USAPlatelets (Bld) [#/Vol]245 10*3/tADnmzfy399-637Oyb [facility] Physician GroupComment on above:Performed By: #### HS TROP, CK, BNP, BMP, CBC, PT, PTT #### [place] [address] USARBC (Bld) [#/Vol]2.54 10*6/uLLow3.60-5.00[facility] Physician GroupComment on above:Performed By: #### HS TROP, CK, BNP, BMP, CBC, PT, PTT #### [place] [address] USAWBC (Bld) [#/Vol]6.1 10*3/uLNormal3.8-11.6[facility] Physician GroupComment on above:Performed By: #### HS TROP, CK, BNP, BMP, CBC, PT, PTT #### [place] [address] USAMean Corpuscular HGB Conc32.9 g/hQAcyhqd72.0-35.0[facility] Physician [facility] CenterComment on above:Performed By: #### RESP PANEL UPP., BIOFIRECOVNOTDE #### [place] [address] USAMonocytes/100 WBC (Bld)23.33 %High0.00-20.00[facility] Physician GroupComment on above:Result Comment: For adults in ED, MDW > 20.0 may be associated with a higher risk of sepsis during the first 12 hrs of hospital admission The predictive value of MDW for identifying sepsis in patients with hematological abnormalities has not been establishedPerformed By: #### RESP PANEL UPP., BIOFIRECOVNOTDE #### [place] [address] USANRBC%0.2 /100{WBC}Normal0-0.5[facility] Physician Group Comment on above:Performed By: #### RESP PANEL UPP., BIOFIRECOVNOTDE #### [place] [address] USABasophils (Bld) [#/Vol]0.1 10*3/uLNormal0.0-0.2[facility] Physician GroupComment on above:Result Comment: PERFORMED BY: [place] [address] PATHOLOGIST [employer] FINISHER JOSÉ MIGUEL RON M.D.Performed By: #### HS TROP, CK, BNP, BMP, CBC, PT, PTT #### [place] [address] USABasophils/100 WBC (Bld)1.7 %Normal.[facility] Physician GroupComment on above:Performed By: #### HS TROP, CK, BNP, BMP, CBC, PT, PTT #### [place] [address] USAEosinophils (Bld) [#/Vol]0.2 10*3/uLNormal0.0-0.45[facility] Physician GroupComment on above:Performed By: #### HS TROP, CK, BNP, BMP, CBC, PT, PTT #### [place] [address] USAEosinophils/100 WBC (Bld)2.2 %Normal.[facility] Physician GroupComment on above:Performed By: #### HS TROP, CK, BNP, BMP, CBC, PT, PTT #### [place] [address] USAErythrocyte distribution width (RBC) [Ratio]20.5 %High 11.9-15.3[facility] Physician GroupComment on above:Performed By: #### HS TROP, CK, BNP, BMP, CBC, PT, PTT #### [place] [address] USAHematocrit (Bld) [Volume fraction]26.3 %Low34.0-46.4[facility] Physician GroupComment on above:Performed By: #### HS TROP, CK, BNP, BMP, CBC, PT, PTT #### [place] [address] USAHemoglobin (Bld) [Mass/Vol]8.6 g/dLLow11.8-15.4[facility] Physician GroupComment on above:Performed By: #### HS TROP, CK, BNP, BMP, CBC, PT, PTT #### [place] [address] USALymphocytes (Bld) [#/Vol]1.2 10*3/uLNormal1.00-4.8[facility] Physician GroupComment on above:Performed By: #### HS TROP, CK, BNP, BMP, CBC, PT, PTT #### [place] [address] USALymphocytes/100 WBC (Bld)16.0 %Normal.[facility] Physician GroupComment on above:Performed By: #### HS TROP, CK, BNP, BMP, CBC, PT, PTT #### [address]MCH (RBC) [Entitic mass]30.7 mtHlsxqb70.7-34.3[facility] Physician GroupComment on above:Performed By: #### HS TROP, CK, BNP, BMP, CBC, PT, PTT #### [address]V (RBC) [Entitic vol]93.7 zHXawfaf07-890Uaz [facility] Physician GroupComment on above:Performed By: #### HS TROP, CK, BNP, BMP, CBC, PT, PTT #### [place] [address] USAMean Corpuscular HGB Conc32.8 g/lQPonghn28.0-35.0[facility] Physician GroupComment on above:Performed By: #### HS TROP, CK, BNP, BMP, CBC, PT, PTT #### [place] [address] USAMonocytes (Bld) [#/Vol]0.5 10*3/uLNormal0.0-0.8[facility] Physician GroupComment on above:Performed By: #### HS TROP, CK, BNP, BMP, CBC, PT, PTT #### [place] [address] USAMonocytes/100 WBC (Bld)20.14 %High0.00-20.00[facility] Physician GroupComment on above:Result Comment: For adults in ED, MDW > 20.0 may be associated with a higher risk of sepsis during the first 12 hrs of hospital admissionPerformed By: #### HS TROP, CK, BNP, BMP, CBC, PT, PTT #### [place] [address] USAMonocytes/100 WBC (Bld)7.0 %Normal.[facility] Physician GroupComment on above:Performed By: #### HS TROP, CK, BNP, BMP, CBC, PT, PTT #### [place] [address] USANeutrophils (Bld) [#/Vol]5.4 10*3/uLNormal1.8-7.7[facility] Physician GroupComment on above:Performed By: #### HS TROP, CK, BNP, BMP, CBC, PT, PTT #### [place] [address] USANeutrophils/100 WBC (Bld)73.1 %Normal.[facility] Physician GroupComment on above:Performed By: #### HS TROP, CK, BNP, BMP, CBC, PT, PTT #### [place] [address] USANRBC%0.1 /100{WBC}Normal0-0.5[facility] Physician Group Comment on above:Performed By: #### HS TROP, CK, BNP, BMP, CBC, PT, PTT #### [place] [address] USAPlatelet mean volume (Bld) [Entitic vol]7.7 fLNormal 6.3-10.7[facility] Physician GroupComment on above:Performed By: #### HS TROP, CK, BNP, BMP, CBC, PT, PTT #### [place] [address] USAPlatelets (Bld) [#/Vol]282 10*3/iJUxrtub317-844Eov [facility] Physician GroupComment on above:Performed By: #### HS TROP, CK, BNP, BMP, CBC, PT, PTT #### [facility] [address] [place] [address] USARBC (Bld) [#/Vol]2.81 10*6/uLLow3.60-5.00[facility] Physician GroupComment on above:Performed By: #### HS TROP, CK, BNP, BMP, CBC, PT, PTT #### [facility] [address] [place] [address] USAWBC (Bld) [#/Vol]7.4 10*3/uLNormal3.8-11.6[facility] Physician [facility] Medical CenterComment on above:Performed By: #### HS TROP, CK, BNP, BMP, CBC, PT, PTT #### [facility] [address] [place] [address] USACreatine kinase [Enzymatic activity/volume] in Serum or PlasmaOrdered By: Carlo Grimaldo on 45-46-0938XG [Catalytic activity/Vol]32 U/L Ymtcbf16-987WutbfezfiMemorial Health SystemComment on above:Performed By: #### HS TROP, CK, BNP, BMP, CBC, PT, PTT #### [facility] [address] [place] [address] USACreatinine [Mass/volume] in Serum or PlasmaOrdered By: Carlo Grimaldo on 79-25-1108Bowwzwnnmx [Mass/Vol]0.87 mg/dLNormal0.60-1.20 [facility] Health SystemComment on above:Performed By: #### HS TROP, CK, BNP, BMP, CBC, PT, PTT #### [facility] [address] [place] [address] USAECG 12 lead ECGon 82-85-9210OLM 12 lead ECGUN[facility] [place] [address] [place] [address] Electrocardiograph Report Signed Patient: Jonatan Olivarez MR#: [id number] : 1960 Acct:[id number] Age/Sex: 63 / F ADM Date: 01/19/24 Loc: Room: [address] [place] [address] Type: ADM IN Attending Dr: Nabila Rao MD Ordering Provider: Carlo Grimaldo DO Date of Service: 01/19/24 ECG/ECG 12 lead ECG: Chest Pain Copies to: Test Reason : Blood Pressure : 94/53 mmHG Vent. Rate : 69 BPM Atrial Rate : 69 BPM P-R Int : 174 ms QRS Dur : 98 ms QT Int : 400 ms P-R-T Axes : 69 62 62 degrees QTcB Int : 428 ms Normal sinus rhythm Possible Left atrial enlargement Incomplete right bundle branch block Borderline ECG When compared with ECG of 19-Jan-2024 16:41, (Unconfirmed) premature ventricular complexes are no longer present Confirmed by NIA NG MD ([id number]) on 01/20/2024 12:55:08 AM Referred By: Electronically Signed By: NIA NG MD Transcribed By: MUS Signed By Nia Ng MD 12/31 04/[address] [place] [address] [facility] [place] [address] [place] [address] Electrocardiograph Report Signed Patient: Jonatan Olivarez MR#: [id number] : 1960 Acct:[id number] Age/Sex: 63 / F ADM Date: 01/19/24 Loc: ER Room: Type: [facility] ER Attending Dr: Ordering Provider: Carlo Grimaldo DO Date of Service: 01/19/24 ECG/ECG 12 lead ECG: Chest Pain Copies to: Test Reason : Blood Pressure : */* mmHG Vent. Rate : 74 BPM Atrial Rate : 74 BPM P-R Int : 166 ms QRS Dur : 100 ms QT Int : 382 ms P-R-T Axes : 73 72 66 degrees QTcB Int : 424 ms Sinus rhythm with occasional premature ventricular complexes Incomplete right bundle branch block Borderline ECG No previous ECGs available Confirmed by CARLO GRIMALDO DO ([id number]) on 01/19/2024 8:03:55 PM Referred By: Electronically Signed By: CARLO GRIMALDO DO Transcribed By: MUS Signed By Carlo Grimaldo DO 01/18 2003NormalThe [place] Physician GroupErythrocyte distribution width [Ratio] by Automated countOrdered By: Nabila Rao on 23-57-0315Ospdyvlafpv distribution width (RBC) [Ratio]19.7 %High11.9-15.3FParma Community General HospitalComment on above:Performed By: #### RESP PANEL UPP., BIOFIRECOVNOTDE #### [facility] [address] [place] [id number] USAErythrocytes [#/volume] in Blood by Automated countOrdered By: Nabila Rao on 36-01-7085XZS (Bld) [#/Vol]2.63 10*6/uLLow3.60-5.00 [facility] Health SystemComment on above:Performed By: #### RESP PANEL UPP., BIOFIRECOVNOTDE #### [place] [address] USAGlucose [Mass/volume] in Serum or PlasmaOrdered By: Carlo Grimaldo on 38-52-0035Gvocedh [Mass/Vol]173 mg/xVScyl67-924RprhzisgxMemorial Health SystemComment on above:ADA recommended reference rangeRandom Glucose Reference Range is dependent on time and content of last meal. Glucose of more than 200 mg/dL in a nonstressed, ambulatory subject supports the diagnosisof Diabetes Mellitus.Result Comment: Random Glucose Reference Range is dependent on time and content of last meal. Glucose of more than 200 mg/dL in a nonstressed, ambulatory subject supports the diagnosis of Diabetes Mellitus. ADA recommended reference rangePerformed By: #### HS TROP, CK, BNP, BMP, CBC, PT, PTT #### [facility] [address] [id number] USAHematocrit [Volume Fraction] of Blood by Automated count Ordered By: Nabila Rao on 03-84-8747Gopgfgnmsj (Bld) [Volume fraction]24.3 % Low34.0-46.4FParma Community General HospitalComment on above:Performed By: #### RESP PANEL UPP., BIOFIRECOVNOTDE #### [place] [id number] USAHemoglobin [Mass/volume] in BloodOrdered By: Nabila Rao on 57-81-9929Mxyvnkdmfu (Bld) [Mass/Vol]8.0 g/dLLow11.8-15.4FParma Community General HospitalComment on above:Performed By: #### RESP PANEL UPP., BIOFIRECOVNOTDE #### [facility] [address] [place] [address] USAINR in Platelet poor plasma by Coagulation assayOrdered By: Carlo Grimaldo on 87-30-9016VTX Coag (PPP) [Relative time]0.9 {INR}Normal [facility] Health SystemComment on above:INR Therapeutic Range A) Pre- and Peroperative OAT started two weeks before surgery. NOT HIP SURGERY: 1.5 - 2.5 HIP SURGERY: 2 - 3B) Primary and secondary prevention of venous THROMBOSIS: 2 - 3C) Active venous thrombosis, pulmonary embolismand prevention of recurrent venous thrombosis: 2 - 3D) Prevention of arterial thromboembolismincluding patients with mechanical heart valves: 3 - 4.5Result Comment: INR Therapeutic Range A) Pre- and Peroperative OAT started two weeks before surgery. NOT HIP SURGERY: 1.5 - 2.5 HIP SURGERY: 2 - 3 B) Primary and secondary prevention of venous THROMBOSIS: 2 - 3 C) Active venous thrombosis, pulmonary embolism and prevention of recurrent venous thrombosis: 2 - 3 D) Prevention of arterial thromboembolism including patients with mechanical heart valves: 3 - 4.5Performed By: #### HS TROP, CK, BNP, BMP, CBC, PT, PTT #### [facility] [address] [place] [address] USALactate [Moles/volume] in Serum or PlasmaOrdered By: Nabila Rao on 11-01-5471Dxpedkf [Moles/Vol]0.8 mmol/LNormal0.5-2.2FParma Community General HospitalComment on above:Result Comment: PERFORMED BY: [place] [address] PATHOLOGIST [employer] FINISHER JOSÉ MIGUEL RON M.D.Performed By: #### RESP PANEL UPP., BIOFIRECOVNOTDE #### [facility] [address] [place] [address] USALeukocytes [#/volume] corrected for nucleated erythrocytes in Blood by Automated counOrdered By: Nabila Rao on 72-83-0450CAJ corrected for nucl RBC Auto (Bld) [#/Vol]7.0 10*3/uL3.8-11.6FParma Community General HospitalLeukocytes [#/volume] in Blood by Automated countOrdered By: Nabila Rao on 86-65-3214NXZ (Bld) [#/Vol]7.0 10*3/uLNormal3.8-11.6FParma Community General HospitalComment on above:Performed By: #### RESP PANEL UPP., BIOFIRECOVNOTDE #### [place] [address] USALymphocytes [#/volume] in Blood by Automated countOrdered By: Nabila Rao on 10-88-1080Yknvkitjvde (Bld) [#/Vol]1.3 10*3/uLNormal1.00-4.8 [facility] SystemComment on above:Performed By: #### RESP PANEL UPP., BIOFIRECOVNOTDE #### [place] [address] USALymphocytes/100 leukocytes in Blood by Automated count Ordered By: Nabila Rao on 33-40-0399Oyhbaefaryg/100 WBC (Bld)19.2 %Normal. [facility] Health SystemComment on above:Performed By: #### RESP PANEL UPP., BIOFIRECOVNOTDE #### [address] [Entitic mass] by Automated countOrdered By: Nabila Rao on 61-07-4749FAY (RBC) [Entitic mass]30.4 gxMxumaw81.7-34.3FParma Community General HospitalComment on above:Performed By: #### RESP PANEL UPP., BIOFIRECOVNOTDE #### [address] Auto (RBC) [Mass/Vol]Ordered By: Nabila Rao on 17-70-5711PEEX (RBC) [Mass/Vol]32.9 g/dL32.0-35.0Memorial Health SystemMCV [Entitic volume] by Automated countOrdered By: Nabila Rao on 86-74-0220NYA (RBC) [Entitic vol]92.4 aLKizqod17-302YcafkyzzcMemorial Health SystemComment on above:Performed By: #### RESP PANEL UPP., BIOFIRECOVNOTDE #### [facility] [address] [place] [address] USAMonocyte distribution width [Entitic volume] in Blood by AutomatedOrdered By: Nabila Rao on 94-72-4775Fjtrmcdc distribution width Auto (Bld) [Entitic vol]23.33 %High0.00-20.00Memorial Health SystemComment on above:For adults in ED, MDW > 20.0 may be associated with a higher risk of sepsis during the first 12 hrs of hospital admissionThe predictive value of MDW for identifying sepsis in patients with hematological abnormalities has not been establishedNeutrophils [#/volume] in Blood by Automated countOrdered By: Nabila Rao on 75-98-4890Gkttxgdaiuz (Bld) [#/Vol]5.0 10*3/uLNormal1.8-7.7FParma Community General HospitalComment on above:Performed By: #### RESP PANEL UPP., BIOFIRECOVNOTDE #### [facility] [address] [place] [id number] USANo Panel InformationOrdered By: Carlo Grimaldo on 90-61-1753Kzzhh Occult Blood (JESS)Memorial Health SystemEstimated GFR (CKD-EPI)> 60.0 mL/MinMemorial Health SystemPharmacy Creatinine Clearance (Chem56.97Memorial Health SystemNucleated erythrocytes [Presence] in Blood by Automated countOrdered By: Nabila Rao on 01-19-2024 Nucleated RBC Auto Ql (Bld)0.2 /100{WBC}0-0.5FPar[facility] Partial Thromboplastin Timeon 92-49-4334oEQC Coag (Bld) [Time]31.2 sNormal 25.1-36.5[facility] Physician GroupComment on above:Result Comment: A hematocrit value greater than 55% may lead to inaccurate results in coagulation testing. Patients having hematocrit values >55% require a special collection tube for coagulation studies. Please contact the laboratory at [phone] for redraw instructions. PERFORMED BY: [place] [address] PATHOLOGIST [employer] FINISHER JOSÉ MIGUEL RON M.D.Performed By: #### HS TROP, CK, BNP, BMP, CBC, PT, PTT #### [place] [address] USAPlatelet mean volume [Entitic volume] in Blood by Automated countOrdered By: Nabila Rao on 22-30-4676Gksgkodq mean volume (Bld) [Entitic vol]7.7 fLNormal6.3-10.7FParma Community General HospitalComment on above:Performed By: #### RESP PANEL UPP., BIOFIRECOVNOTDE #### [place] [address] USAPlatelets [#/volume] in Blood by Automated countOrdered By: Nabila Rao on 48-68-5580Cqnbfybfq (Bld) [#/Vol]251 10*3/rLAmqikp796-985 [facility] Health SystemComment on above:Performed By: #### RESP PANEL UPP., BIOFIRECOVNOTDE #### [place] [address] USAPotassium [Moles/volume] in Serum or PlasmaOrdered By: Carlo Grimaldo on 67-40-4682Hlpqitmbk [Moles/Vol]3.5 mmol/LNormal3.5-5.1FParma Community General HospitalComment on above:Performed By: #### HS TROP, CK, BNP, BMP, CBC, PT, PTT #### [place] [address] USAProthrombin time (PT)Ordered By: Carlo Grimaldo on 46-18-3131RO Coag (PPP) [Time]10.4 sNormal9.0-12.9Memorial Health SystemComment on above:A hematocrit value greater than 55% may lead to inaccurate results in coagulation testing. Patientshaving hematocrit values >55% require a special collection tube for coagulation studies. Please contact the laboratory at [phone] for redraw instructions.Result Comment: A hematocrit value greater than 55% may lead to inaccurate results in coagulation testing. Patients having hematocrit values >55% require a special collection tube for coagulation studies. Please contact the laboratory at [phone] for redraw instructions.Performed By: #### HS TROP, CK, BNP, BMP, CBC, PT, PTT #### [address] [address] [facility]THERN NEW MEXICORespiratory (Upper) Panel, PCRon 59-46-9945Rncmeeflwrv (Upper) Panel, PCRAdenovirus Not detected Bordetella parapertussis Not detected Chlamydia pneumoniae Not detected Coronavirus 229E Not detected Coronavirus HKU1 Not detected Coronavirus NL63 Not detected Coronavirus OC43 Not detected Influenza A Not detected Influenza B Not detected Human Metapneumovirus Not detected Mycoplasma pneumoniae Not detected Parainfluenza Virus 1 Not detected Parainfluenza Virus 2 Not detected Parainfluenza Virus 3 Not detected Parainfluenza Virus 4 Not detected Bordetella pertussis-ptxP Not detected Human Rhino/Enterovirus Not detected Resp. Syncytial Virus Not detected COVID-19 Detected/Not Detected Not detected Blank Space FLUA TEST INCLUDES Influenza A tests for the following clinically FLUA TEST INCLUDES significant subtypes: FLUA TEST INCLUDES - Influenza A FLUA TEST INCLUDES - Influenza A H1 FLUA TEST INCLUDES - Influenza A H1 2009 FLUA TEST INCLUDES - Influenza A H3 Blank Space PERFORMED BY: [address] [address] PATHOLOGIST [employer] FINISHER JOSÉ MIGUEL RON M.D.[facility] Physician GroupComment on above:Performed By: #### RESP PANEL UPP., BIOFIRECOVNOTDE #### [facility] [address] [id number] USARespiratory pathogens DNA and RNA panel - Nasopharynx by JANIA with non-probe detectionOrdered By: Carlo Grimaldo on 23-34-2468Durynidcuhs pathogens DNA and RNA panel JANIA+non-probe (Nph)[facility] Serum or plasma anion gap determinationOrdered By: Carlo Grimaldo on 01-19-2024 Anion gap [Moles/Vol]13.8 mmol/LNormal6.0-15.0[facility] Comment on above:Performed By: #### HS TROP, CK, BNP, BMP, CBC, PT, PTT #### [place] [address] USASodium [Moles/volume] in Serum or PlasmaOrdered By: Carlo Grimaldo on 63-93-0603Saknhn [Moles/Vol]138 mmol/ZEdwxhg041-341LjmynamydMemorial Health SystemComment on above:Performed By: #### HS TROP, CK, BNP, BMP, CBC, PT, PTT #### [place] [id number] USAStool Occult Bl. Scr. (Guaiac)on 51-25-2907Unqul Occult Bl. Scr. (Guaiac)Occult Blood Negative for Occult Blood by Guaiac Methodology Reference range = Negative PERFORMED BY: [place] [address] PATHOLOGIST [employer] FINISHER JOSÉ MIGUEL RON M.D.[facility] Physician GroupComment on above:Performed By: #### HS TROP, CK, BNP, BMP, CBC, PT, PTT #### [place] [id number] USATroponin I High Sensitivityon 64-87-5005Mggcprew I High Omaxbddsxpn47.4 pg/mLHigh0.0-15.0[facility] Physician GroupComment on above: Result Comment: PERFORMED BY: [place] [address] PATHOLOGIST [employer] FINISHER JOSÉ MIGUEL RON M.D.Performed By: #### HS TROP, CK, BNP, BMP, CBC, PT, PTT #### [place] [address] USATroponin I High Qnscqjlmrrr99.7 pg/mLNormal0.0-15.0[facility] Physician GroupComment on above:Result Comment: PERFORMED BY: [place] [address] PATHOLOGIST [employer] FINISHER JOSÉ MIGUEL RON M.D.Performed By: #### HS TROP, CK, BNP, BMP, CBC, PT, PTT #### [place] [address] USATroponin I High Lvccziormlk45.7 pg/mLNormal0.0-15.0[facility] Physician [facility] CenterComment on above:Result Comment: PERFORMED BY: [place] [address] PATHOLOGIST [employer] FINISHER JOSÉ MIGUEL RON M.D.Performed By: #### HS TROP, CK, BNP, BMP, CBC, PT, PTT #### [place] [address] USATroponin I.cardiac [Mass/volume] in Serum or Plasma by Detection limit <= 0.01 ng/Ordered By: Carlo Grimaldo on 67-80-4601Wfrqgpzi I.cardiac DL <= 0.01 ng/mL [Mass/Vol]14.7 pg/mL0.0-15.0[facility] Health SystemUrea nitrogen [Mass/volume] in Serum or PlasmaOrdered By: Carlo Grimaldo on 99-27-3938Nrsp nitrogen [Mass/Vol]11 mg/dLNormal7-25[facility] Health SystemComment on above:Performed By: #### HS TROP, CK, BNP, BMP, CBC, PT, PTT #### [facility] [address] [place] [address] USAXR chest 2V*on 67-96-2853JD chest 2V*[facility] [place] [address] [place] [address] XRay Report Signed Patient: Jonatan Olivarez MR#: [id number] : 1960 Acct:[id number] Age/Sex: 63 / F ADM Date: 01/19/24 Loc: ER Room: Type: [facility] ER Attending Dr: Copies to: Carlo Grimaldo DO Ordering Provider: Carlo Grimaldo DO Date of Service: 01/19/24 XR/XR chest 2V*: Chest Pain AP ERECT AND LATERAL CHEST: CLINICAL HISTORY: Chest and bilateral arm pain COMPARISON: None The lungs show slight hyperinflation. Minor interstitial change and possible minimal scarring or atelectasis is seen. No focal consolidation is noted. The heart is borderline prominent. There is fullness at the heather. The bony structures are osteopenic. There is endplate spurring at the spine. XR/XR chest 2V* IMPRESSION: BORDERLINE CARDIOMEGALY AND PROMINENCE OF THE HEATHER. THERE ARE NO PRIORS TO ASSESS CHRONICITY. OBSTRUCTIVE LUNG DISEASE AND POTENTIAL MINOR CHRONIC PARENCHYMAL CHANGES. Impression dictated by: Lindsey Menchaca M.D.01/19/2024 6:26 PM Dictation Location: [place] [address] Transcribed By: [facility] 01/19/241825 Dictated By: Lindsey Menchaca MD 01/19/241822 Signed By: 01/19/241825[facility] Physician GroupCBC AND AUTO DIFFon 01-18-2024 ABSOLUTE BASOPHIL0.2 X10E9/LNormal0.0-0.2[facility] HospitalComment on above:Performed By: #### CBCA, 76094-8, CMP #### [facility] ([id number]) [address], [address] [place], [place] [address]JPLJMZID NEUTROPHIL5.2 X10E9/LNormal1.5-6.6[facility] HospitalComment on above:Performed By: #### PRIYANK, , CMP #### [facility] ([id number]) [address], [address] [place], [place] [address]Ehdchfxgn/100 WBC (Bld)2.3 %NormalOhioHealth Marion General Hospital Comment on above:Performed By: #### PRIYANK, , CMP #### [facility] ([id number]) [address], [address] [place], [place] [address]Lbtvisnmexp (Bld) [#/Vol]0.3 10*3/uLNormal0.0-0.4Pro[facility] Hospital HospitalComment on above:Performed By: #### PRIYANK, , CMP #### [facility] ([id number]) [address], [address] [place], [place] [address]Vjejfywfuvw/100 WBC (Bld)3.5 %NormalOhioHealth Marion General Hospital Comment on above:Performed By: #### PRIYANK, , CMP #### [facility] ([id number]) [address], [address] [place], [place] [address]Ciifuozfiuf distribution width (RBC) [Ratio]19.5 %High11.5-15.0 [facility] HospitalComment on above:Performed By: #### PRIYANK, , CMP #### [facility] ([id number]) [address], [address] [place], [place] [address]Ayevlycdiu (Bld) [Volume fraction]24.1 %Pjt77-65SlbAuqidq [place] HospitalComment on above:Performed By: #### PRIYANK, , CMP #### [facility] ([id number]) [address], [address] [place], [place] [address]Xhtjcqjnfg (Bld) [Mass/Vol]7.9 g/dLLow11.7-15.5[facility] HospitalComment on above:Performed By: #### PRIYANK, , CMP #### [facility] ([id number]) [address], [address] [place], [place] [address]Wgehrsbelzl (Bld) [#/Vol]1.6 10*3/uLNormal1.0-3.5ProMedThe Surgical Hospital at Southwoods HospitalComment on above:Performed By: #### PRIYANK, , CMP #### [facility] ([id number]) [address], [address] [place], [place] [address]Fkqlewasexz/100 WBC (Bld)20.4 %NormalProNewark Hospital Hospital Comment on above:Performed By: #### PRIYANK, , CMP #### [facility] ([id number]) [address], [address] [place], [place] [address]JOC (RBC) [Entitic mass]30.0 lnGhrwrf19-92GvtAnthlx [place] HospitalComment on above:Performed By: #### PRIYANK, , CMP #### [facility] ([id number]) [address], [address] [place], [place] [address]MNHL (RBC) [Mass/Vol]32.9 g/gXIawrqu00-36QeaGxqnui [place] HospitalComment on above:Performed By: #### PRIYANK, , CMP #### [facility] ([id number]) [address], [address] [place], [place] [address]YVL (RBC) [Entitic vol]91 lUFfeagr38-386EkwFurois [facility] HospitalComment on above:Performed By: #### PRIYANK, , CMP #### [facility] ([id number]) [address], [address] [place], [place] [address]Llepgghtc (Bld) [#/Vol]0.7 10*3/uLNormal0-0.9[facility] HospitalComment on above:Performed By: #### PRIYANK, , CMP #### [facility] ([id number]) [address], [address] [place], [place] [address]Ngnsncifs/100 WBC (Bld)8.6 %NormalOhioHealth Marion General Hospital Comment on above:Performed By: #### PRIYANK, , CMP #### [facility] ([id number]) [address], [address] [place], [place] [address]Wwzwsfhfhuf/100 WBC (Bld)65.2 %NormalOhioHealth Marion General Hospital Comment on above:Performed By: #### PRIYANK, , CMP #### [facility] ([id number]) [address], [address] [place], [place] [address]Xcoogmff mean volume (Bld) [Entitic vol]7.6 fLNormal7-12 [facility] HospitalComment on above:Performed By: #### PRIYANK, , CMP #### [facility] ([id number]) [address], [address] [place], [place] [address]Ttvtwcogv (Bld) [#/Vol]275 10*3/pUQhzagg972-993WjaSqnunq [facility] HospitalComment on above:Performed By: #### PRIYANK, , CMP #### [facility] ([id number]) [address], [address] [place], [place] [address]MEK COUNT2.64 X10E12/LLow3.80-5.20[facility] Comment on above:Performed By: #### PRIYANK, , CMP #### [facility] ([id number]) [address], [address] [place], [place] [address]RHH (Bld) [#/Vol]7.9 10*3/uLNormal4.0-11.0[facility] HospitalComment on above:Performed By: #### PRIYANK , CMP #### [facility] ([id number]) [address], [address] [place], [place] [address]GZVICWIZXPBBL METABOLIC PANELon 75-69-6466Rhllhqj [Mass/Vol]3.1 g/dLLow3.2-5.3[facility] HospitalComment on above:Performed By: #### PRIYANK , CMP #### [facility] ([id number]) [address], [address] [place], [place] [address]BCI [Catalytic activity/Vol]233 U/NXmop05-495XwfGleknu [facility] HospitalComment on above:Performed By: #### PRIYANK , CMP #### [facility] ([id number]) [address], [address] [place], [place] [address]VDJ [Catalytic activity/Vol]18 U/LNormal0-31ProMedThe [facility] Hospital [facility] Southwoods HospitalComment on above:Performed By: #### PRIYANK , CMP #### [facility] ([id number]) [address], [address] [place], [place] [address]Mflpk gap [Moles/Vol]6 mmol/LNormal5-15ProAt[facility] Comment on above:Performed By: #### PRIYANK , CMP #### [facility] ([id number]) [address], [address] [place], [place] [address]BGH [Catalytic activity/Vol]30 U/LNormal0-41[facility] HospitalComment on above:Performed By: #### PRIYANK , CMP #### [facility] ([id number]) [address], [address] [place], [place] [address]Unyvinpub [Mass/Vol]0.3 mg/dLNormal0.3-1.2[facility] HospitalComment on above:Performed By: #### PRIYANK, , CMP #### [facility] ([id number]) [address], [address] [place], [place] [address]Ofbrogl [Mass/Vol]8.3 mg/dLLow8.5-10.5PWilson [facility] Comment on above:Performed By: #### PRIYANK, , CMP #### [facility] ([id number]) [address], [address] [place], [place] [address]Rawbefhv [Moles/Vol]99 mmol/FMlpfpc73-830JtkKpnrmn [place] HospitalComment on above:Performed By: #### PRIYANK , CMP #### [facility] ([id number]) [address], [address] [place], [place] [address]ZC4 [Moles/Vol]34 mmol/XEbgp54-56KyuQbacwnWilson Memorial Hospital Comment on above:Performed By: #### PRIYANK, , CMP #### [facility] ([id number]) [address], [address] [place], [place] [address]Hwqobvhvvq [Mass/Vol]0.67 mg/dLNormal0.40-1.00Ohio[facility] HospitalComment on above:Result Comment: METHOD TRACEABLE TO IDMS STANDARD Performed By: #### PRIYANK, , CMP #### [facility] ([id number]) [address], [address] [place], [place] [address]mKCM (CKD-EPI) NON-RACE DEPENDENT>90Normal>59ProWood County HospitalComment on above:Result Comment: Reported eGFR is based on the CKD-EPI 2020 equation that does not use a race coefficient.Performed By: #### PRIYANK, , CMP #### [facility] ([id number]) [address], [address] [place], [place] [address]Ixcnsod [Mass/Vol]117 mg/kZGtuw68-16RboWvhuafOhioHealth Marion General Hospital Comment on above:Performed By: #### PRIYANK , CMP #### [facility] ([id number]) [address], [address] [place], [place] [address]Upbudkxrj [Moles/Vol]4.3 mmol/LNormal3.5-5.0Pro[facility] HospitalComment on above:Performed By: #### PRIYANK , CMP #### [facility] ([id number]) [address], [address] [place] [address]Ogrlhfa [Mass/Vol]5.4 g/dLLow6.0-8.0ProWood [facility] Hospital Comment on above:Performed By: #### PRIYANK , CMP #### [facility] ([id number]) [address], [address] [place] [address]Afyudx [Moles/Vol]139 mmol/MZxjwgz268-876TlwHrbagz [place] HospitalComment on above:Performed By: #### PRIYANK , CMP #### [facility] ([id number]) [address], [address] [place], [place] [address]Yenj nitrogen [Mass/Vol]16 mg/dLNormal5-27[facility] HospitalComment on above:Performed By: #### PRIYANK , CMP #### [facility] ([id number]) [address], [address] [place], [place] [address]XLUDQUQCGah 47-72-3161Nnxzrfxzc [Mass/Vol]1.8 mg/dLNormal1.8-2.6 ProMOhioHealth [facility]field Hospital HospitalComment on above:Performed By: #### PRIYANK , CMP #### [facility] ([id number]) [address], [address] [place], [place] [address]GVG AND AUTO DIFFon 65-15-6835HVQBGNCU BASOPHIL0.1 X10E9/LNormal 0.0-0.2[facility] HospitalComment on above:Performed By: #### 48805-9, CBCA, CMP #### [facility] ([id number]) [address], [address] [place], [place] [address]KEIHPCZB NEUTROPHIL6.4 X10E9/LNormal1.5-6.6[facility] HospitalComment on above:Performed By: #### 40246-9, CBCA, CMP #### [facility] ([id number]) [address], [address] [place], [place] [address]Iosofbyfw/100 WBC (Bld)1.6 %NormalOhioHealth Marion General Hospital Comment on above:Performed By: #### 35647-8, CBCA, CMP #### [facility] ([id number]) [address], [address] [place], [place] [address]Fcvxyqusncv (Bld) [#/Vol]0.3 10*3/uLNormal0.0-0.4[facility] HospitalComment on above:Performed By: #### 70940-3, CBCA, CMP #### [facility] ([id number]) [address], [address] [place], [place] [address]Iynycqgjxof/100 WBC (Bld)3.4 %NormalOhioHealth Marion General Hospital Comment on above:Performed By: #### 00458-8, CBCA, CMP #### [facility] ([id number]) [address], [address] [place], [place] [address]Ivpylkgwmby distribution width (RBC) [Ratio]19.5 %High11.5-15.0 [facility] HospitalComment on above:Performed By: #### 51784-7, CBCA, CMP #### [facility] ([id number]) [address], [address] [place], [place] [address]Qqvxqwfsmt (Bld) [Volume fraction]24.1 %Rtk96-04HciVfwlqs [facility] HospitalComment on above:Performed By: #### 44256-2, CBCA, CMP #### [facility] ([id number]) [address], [address] [place], [place] [address]Jykhbtjjfz (Bld) [Mass/Vol]8.0 g/dLLow11.7-15.5PTriHealth HospitalComment on above:Performed By: #### 77511-2, CBCA, CMP #### [facility] ([id number]) [address], [address] [place], [place] [address]Ostwfvvhtsk (Bld) [#/Vol]1.7 10*3/uLNormal1.0-3.5PTriHealth HospitalComment on above:Performed By: #### 60522-5, CBCA, CMP #### [facility] ([id number]) [address], [address] [place], [place] [address]Wnpehxmcxgn/100 WBC (Bld)18.8 %NormalProNewark Hospital Hospital Comment on above:Performed By: #### 50201-9, CBCA, CMP #### [facility] ([id number]) [address], [address] [place], [place] [address]BHV (RBC) [Entitic mass]30.2 yqXblcei02-12DwpXfdbbh [place] HospitalComment on above:Performed By: #### 43497-0, CBCA, CMP #### [facility] ([id number]) [address], [address] [place], [place] [address]WAAA (RBC) [Mass/Vol]33.3 g/qZDihbuk50-74FbpHiekqj [place] HospitalComment on above:Performed By: #### 74541-5, CBCA, CMP #### [facility] ([id number]) [address], [address] [place], [place] [address]EBJ (RBC) [Entitic vol]91 rJPfzfiu54-738TkjUyzpxq [place] HospitalComment on above:Performed By: #### 71096-7, CBCA, CMP #### [facility] ([id number]) [address], [address] [place], [place] [address]Seglxdvrc (Bld) [#/Vol]0.7 10*3/uLNormal0-0.9ProWayne Hospitalca [facility] HospitalComment on above:Performed By: #### 50404-7, CBCA, CMP #### [facility] ([id number]) [address], [address] [place], [place] [address]Oxyrplbkk/100 WBC (Bld)7.2 %NormalOhioHealth Marion General Hospital Comment on above:Performed By: #### 48291-7, CBCA, CMP #### [facility] ([id number]) [address], [address] [place], [place] [address]Zdxltzhbhok/100 WBC (Bld)69.0 %NormalOhioHealth Marion General Hospital Comment on above:Performed By: #### 83323-5, CBCA, CMP #### [facility] ([id number]) [address], [address] [place], [place] [address]Sgpmdstr mean volume (Bld) [Entitic vol]8.3 fLNormal7-12 [facility] HospitalComment on above:Performed By: #### 03921-3, CBCA, CMP #### [facility] ([id number]) [address], [address] [place], [place] [address]Ltkmzfver (Bld) [#/Vol]288 10*3/aTOystkh658-411MdoIafesc [place] HospitalComment on above:Performed By: #### 72150-0, CBCA, CMP #### [facility] ([id number]) [address], [address] [place], [place] [address]XDU COUNT2.66 X10E12/LLow3.80-5.20[facility] Comment on above:Performed By: #### 69080-8, CBCA, CMP #### [facility] ([id number]) [address], [address] [place], [place] [address]VBB (Bld) [#/Vol]9.3 10*3/uLNormal4.0-11.0[facility] HospitalComment on above:Performed By: #### 73379-0, CBCA, CMP #### [facility] ([id number]) [address], [address] [place], [place] [address]PVKJNTZBQSEXU METABOLIC PANELon 82-21-7765Rgnpjnl [Mass/Vol]3.1 g/dLLow3.2-5.3[facility] HospitalComment on above:Performed By: #### 67181-8, CBCA, CMP #### [facility] ([id number]) [address] [place], [place] [address]QDO [Catalytic activity/Vol]86 U/UAxbdmh19-724FedCuasso [facility] HospitalComment on above:Performed By: #### 92238-2, CBCA, CMP #### [facility] ([id number]) [address], [address] [place], [place] [address]EKT [Catalytic activity/Vol]8 U/LNormal0-31ProMedThe [facility] Hospital at Southwoods HospitalComment on above:Performed By: #### 31960-5, CBCA, CMP #### [facility] ([id number]) [address], [address] [place], [place] [address]Ueael gap [Moles/Vol]9 mmol/LNormal5-15[facility] Comment on above:Performed By: #### 35783-1, CBCA, CMP #### [facility] ([id number]) [address], [address] [place], [place] [address]QKA [Catalytic activity/Vol]15 U/LNormal0-41[facility] HospitalComment on above:Performed By: #### 12365-8, CBCA, CMP #### [facility] ([id number]) [address], [address] [place], [place] [address]Ejwxxdpyq [Mass/Vol]0.3 mg/dLNormal0.3-1.2PWilson Memorial HospitalComment on above:Performed By: #### 01532-7, CBCA, CMP #### [facility] ([id number]) [address], [address] [place], [place] [address]Tabwquu [Mass/Vol]8.4 mg/dLLow8.5-10.5PWilson Memorial Hospital Comment on above:Performed By: #### 52809-8, CBCA, CMP #### [facility] ([id number]) [address], [address] [place], [place] [address]Vpotiwwq [Moles/Vol]101 mmol/FEosvhy53-188BggSmugro [place] HospitalComment on above:Performed By: #### 28814-0, CBCA, CMP #### [facility] ([id number]) [address], [address] [place], [place] [address]IE5 [Moles/Vol]31 mmol/RZkusmd46-33DrkYydwqhWilson Memorial Hospital Comment on above:Performed By: #### 17911-8, CBCA, CMP #### [facility] ([id number]) [address], [address] [place], [place] [address]Cvtgpyikml [Mass/Vol]0.75 mg/dLNormal0.40-1.00ProWood County HospitalComment on above:Result Comment: METHOD TRACEABLE TO IDMS STANDARD Performed By: #### 47516-6, CBCA, CMP #### [facility] ([id number]) [address], [address] [place], [place] [address]OUS/1.73 sq M.predicted among non-blacks MDRD (S/P/Bld) [Vol rate/Area]89 mL/min/{1.73_m2}Normal>59ProWood County HospitalComment on above: Result Comment: Reported eGFR is based on the CKD-EPI 2020 equation that does not use a race coefficient.Performed By: #### 91516-7CHANELLEA, CMP #### [facility] ([id number]) [address], [address] [place], [place] [address]Dehpccm [Mass/Vol]112 mg/vZTucd24-98VixTkguslWood County Hospital Comment on above:Performed By: #### 13728-5, CBCA, CMP #### [facility] ([id number]) [address] [address] [place], [place] [address]Prolahwcp [Moles/Vol]4.2 mmol/LNormal3.5-5.0ProWood County HospitalComment on above:Performed By: #### 46454-9 CBCA, CMP #### [facility] ([id number]) [address] [place], [place] [address]Gqsvszr [Mass/Vol]5.4 g/dLLow6.0-8.0[facility] Comment on above:Performed By: #### 19621-2, CBCA, CMP #### [facility] ([id number]) [address], [address] [place], [place] [address]Fquoju [Moles/Vol]141 mmol/TJbkyjs921-537BpgPcijgi [place] HospitalComment on above:Performed By: #### 94193-1, CBCA, CMP #### [facility] ([id number]) [address], [address] [place], [place] [address]Qxog nitrogen [Mass/Vol]17 mg/dLNormal5-27ProWood County HospitalComment on above:Performed By: #### 37363-2, CBCA, CMP #### [facility] ([id number]) [address], [address] [place], [place] [address]RZMCNPVDMqk 52-46-0308Uhpqvpzrj [Mass/Vol]2.0 mg/dLNormal1.8-2.6 [facility] HospitalComment on above:Performed By: #### 15942-5, CBCA, CMP #### [facility] ([id number]) [address] [place] [address], [address] [place], [place] [address]Ccjufpaj Pathologyon 62-28-8029Lcqxywrg PathologyNormalProMedica Cleveland Clinic Hillcrest HospitalComment on above:Result Comment: Share[employer] [facility] [address] [place] [address] Surgical Pathology Consultation Patient Name:JONATAN OLIVAREZ:1960 (Age: 63)Gender:FTaken:4Reported:01/22/2024hysician(s):Jazmine Barnard MD ([phone])Copy To: Rec. #:[id number]: #[id number] Final Pathologic Diagnosis 1. Gastric ulcer biopsy: Reactive gastritis/gastropathy. No dysplasia or intestinal metaplasia identified. Immunohistochemical stain for Helicobacter pylori is negative. 2. Distal esophageal biopsy: Squamous esophageal and cardiac type mucosa showing active chronic inflammation and reactive squamous changes suggestive of reflux injury. No dysplasia or goblet cell metaplasia identified. Report Electronically Signed Out ao/01/22/2024donte Bowman MD Interpretation performed at [facility], [address] [place] [address], License number: [id number]. Clinical History Upper GI bleed. 1. r/o h. pylori. 2. r/o barretts. Gross Description 1. Received in formalin labeled, SHER, gastric ulcer are 4 sanchez delicate, focally erythematous soft tissue fragments, 0.4-0.5 cm in greatest dimension. The specimens are filtered and submitted insingle cassette. (1, ns, [id number], m3) TB 2. Received in formalin labeled, SHER, esophageal distal biopsy are 5 pale- sanchez delicate soft tissue bits, 0.1-0.4 cm in greatest dimension. The specimens are filtered and submitted in single cassette. (1, ns, [id number], m3) [facility]/01/17/2024GR Specimen(s) Received 1: ulcer, gastric 2: Esophageal distal biopsy Fee Codes(s): 1; 75273 2; 61[address]IQTDJ OCCULT BLOODon 33-38-4979Yhjfuxngiz.gastrointestinal Ql (Stl) PositiveAbnormalNEGProHca Houston Healthcare North CypressComment on above:Performed By: #### 2335-8 ####[facility] ([id number])[address] [place] [address]NOV AND HCTon 23-47-3926Qsfdrftfkd (Bld) [Volume fraction] 37.0 %Hxgufu61-37XuyRjtkxfHca Houston Healthcare North CypressComment on above:Performed By: #### HH ####[facility] ([id number])[address] [place] [address]Bnxpqsgnxt (Bld) [Mass/Vol]12.4 g/iHTektyo24.7-15.5 ProMedicRobert F. Kennedy Medical CenterComment on above:Performed By: #### HH ####[facility] ([id number])[address] [place] [address]Cfstofz (P nathalie) [Moles/Vol]on 12-82-5204NEQJXEY W/REFLEX1.3 mmol/LNormal 0.4-2.0ProHca Houston Healthcare North CypressComment on above:Result Comment: Result did not trigger repeat Lactate,re-order if needed.Performed By: #### 36849-6 ####[facility] ([id number])[address] [place] [address]VCJECUZKJae 41-83-6462Csykbwuca [Mass/Vol]2.2 mg/dLNormal 1.8-2.6ProHca Houston Healthcare North CypressComment on above:Performed By: #### 83609-8, 2823-3 ####[facility] ([id number])[address] [place] [address]DZMYFCQYZym 31-02-7072Dzjdptfqn [Moles/Vol]4.1 mmol/L Normal3.5-5.0ProHca [facility] Healthcare North CypressComment on above:Performed By: #### 44561-5, 2823-3 ####[facility] ([id number])[address] [place] [address] 77548EDSBTK BLOOD GASon [id number]'S TESTNormal [facility] Miller Children'S HospitalComment on above:Performed By: #### VBG ####[facility] ([id number])[address] [place] [address] 75486Batt excess Calc (Bld) [Moles/Vol]4.0 mmol/LHigh0.0-2.0Pro[facility] Healthcare North CypressComment on above:Performed By: #### VBG ####[facility] ([id number])[address] [place] [address] 27651Fnmu temperature 98.6 [degF]Osaxmy64.0Pro[facility] Healthcare North CypressComment on above:Performed By: #### VBG ####[facility] ([id number])[address] [place] [address] 56292RKM6 (Bld) [Moles/Vol]30.3 mmol/LHigh20.0-24.0Pro[facility] Healthcare North CypressComment on above:Performed By: #### VBG ####[facility] ([id number])[address] [place] [address] 69791PEEZ. O2 CONC.28 %NormalProHca Houston Healthcare North CypressComment on above:Performed By: #### VBG ####[facility] ([id number])[address] [place] [address] 26421Qnfowp saturation in Blood99.0 %Normal>80.0St. Mary's Medical CenterComment on above:Performed By: #### VBG ####[facility] ([id number])[address] [place] [address], [place] [address]EJCVZW SOURCERoomAirNoKeenan Private HospitalComment on above:Performed By: #### VBG ####[facility] ([id number])[address] [place] [address], [place] [address]DRJ9, JOABPK39.0 XTBXIaxg62-55VgcFaswjrSt. Mary's Medical Center Comment on above:Performed By: #### VBG ####[facility] ([id number])[address] [place] [address], [place] [address]VQ, VENOUS7.357 Normal7.320-7.420ProHca Houston Healthcare North CypressComment on above:Performed By: #### VBG ####[facility] ([id number])[address] [place] [address], [place] [address]QB2, [id number] KEMTPnfd25-26UqeMlhefxSt. Mary's Medical Center Comment on above:Performed By: #### VBG ####[facility] ([id number])[address] [place] [address] 83072BBZWKJ SITEN/A NormalSt. Mary's Medical CenterComment on above:Performed By: #### VBG ####[facility] ([id number])[address] [place] [address], [place] [address]KAYFEF TYPEVENOUSNoKeenan Private HospitalComment on above:Performed By: #### VBG ####[facility] ([id number])[address] [place] [address] [id number] CHEST 2 VWSon [id number] CHEST 2 SNoKeenan Private HospitalCult,Urineon [id number],UrineSpecimen Description .CLEAN CATCH URINE Special Requests Site: Urine Culture ESCHERICHIA COLI >100,000 CFU/ML Report Status FINAL 01/04/2024 SUSCEPTIBILITY Organism ESCHERICHIA COLI Method JESS Ampicillin >=32 RESISTANT Cefazolin 8 SUSCEPTIBLE Cefazolin sensitivity results can be used to predict the effectiveness of oral cephalosporins (eg. Cephalexin) in uncomplicated Urinary Tract Infections due to E. coli, K. pneumoniae, and P. mirabilis Ceftriaxone <=0.25 SUSCEPTIBLE ESBL NEGATIVE Gentamicin <=1 SUSCEPTIBLE Levofloxacin >=8 RESISTANT Nitrofurantoin <=16 SUSCEPTIBLE Piperacillin/Tazobactam <=4 SUSCEPTIBLE Tobramycin <=1 SUSCEPTIBLE Trimethoprim/Sulfa >=320 RESISTANTResistantMCincinnati Children's Hospital Medical CenterComment on above:Performed By: #### RADHA BOWMANX #### [address] [place] [address] [address] Radio Technician: Stacy Mckenzie Natri. Peptideon [id number] peptide B (Bld) [Mass/Vol]7206 pg/mLHigh0-125MerYale New Haven Psychiatric HospitalComment on above:Performed By: #### YULISAX, CDP #### [address] [place] [address] [address] Radio Technician: ANNITA Mckenzie with Diffon [id number]. Basophil0.06 k/uL Normal0.00-0.20MerChillicothe Hospital HospitalComment on above:Performed By: #### YULISAX, CDP #### [address] [place], [facility] Two Way Radio Technician: Cruz Mckenzie.Imm.Granulocyte0.04 k/uLNormal0.00-0.30MerChillicothe Hospital HospitalComment on above:Performed By: #### YULISAX, CDP #### [address] [place], [place] 3009883 Two Way Radio Technician: Cruz Mckenzie.Neutrophil (Seg)8.64 k/uLHigh1.50-8.10MerChillicothe Hospital HospitalComment on above:Performed By: #### CMPX, CDP #### [address] [place], [place] [id number] Two Way Radio Technician: Apolinar Lemus MDBasophils/100 WBC (Bld)1 %Normal0-2[facility] HospitalComment on above:Performed By: #### CMPX, CDP #### [address] [place], [facility] Two Way Radio Technician: Apolinar Lemus MDEosinophils (Bld) [#/Vol]0.03 10*3/uLNormal 0.00-0.44[facility] HospitalComment on above:Performed By: #### CMPX, CDP #### [address] [place], [facility] Two Way Radio Technician: JADEN Mckenzieosinophils/100 WBC (Bld)0 %Low1-4MerChillicothe Hospital HospitalComment on above:Performed By: #### CMPX, CDP #### [address] [place], [facility] Two Way Radio Technician: Apolinar Lemus MDErythrocyte distribution width (RBC) [Ratio]16.9 % High11.8-14.4[facility] HospitalComment on above:Performed By: #### CMPX, CDP #### [address] [place], [facility] Two Way Radio Technician: Apolinar Lemus MDHematocrit (Bld) [Volume fraction]41.8 %Normal 36.3-47.1[facility] HospitalComment on above:Performed By: #### CMPX, CDP #### [address] [place], [facility] Two Way Radio Technician: Apolinar Lemus MDHemoglobin (Bld) [Mass/Vol]13.7 g/dLNormal 11.9-15.1[facility] HospitalComment on above:Performed By: #### CMPX, CDP #### [address] [place], [place] 344[address]83 Two Way Radio Technician: Raine Mckenzieture granulocytes/100 WBC (Bld)0 %Pueaml8XhfzmBluffton HospitalComment on above:Performed By: #### CMPX, CDP #### [address] [place], [place] 1679083 Two Way Radio Technician: Eden Mckenziemphocytes (Bld) [#/Vol]0.77 10*3/uLLow1.10-3.70 [facility] HospitalComment on above:Performed By: #### CMPX, CDP #### [address] [place], [place] 6726983 Two Way Radio Technician: Eden Mckenziemphocytes/100 WBC (Bld)8 %Wfr18-01Xhrsb [facility] HospitalComment on above:Performed By: #### CMPX, CDP #### [address] [place], [place] 0983183 Two Way Radio Technician: BUZZ MckenzieCH (RBC) [Entitic mass]30.0 vsBjovkf77.2-33.5 [facility] HospitalComment on above:Performed By: #### CMPX, CDP #### [address] [place] [address] [address] Radio Technician: ELLA MckenzieC (RBC) [Mass/Vol]32.8 g/rBKjrjjh33.4-34.8[facility] HospitalComment on above:Performed By: #### CMPX, CDP #### [address] [place] [address] [address] Radio Technician: BUZZ MckenzieCV (RBC) [Entitic vol]91.5 uLVipkmu93.6-102.9 [facility] HospitalComment on above:Performed By: #### CMPX, CDP #### [address] [place] [address] [address] Radio Technician: BUZZ Mckenzieonocytes (Bld) [#/Vol]0.44 10*3/uLNormal0.10-1.20 [facility] HospitalComment on above:Performed By: #### CMPX, CDP #### [address] [place], [place] [id number] Two Way Radio Technician: BUZZ Mckenzieonocytes/100 WBC (Bld)4 %Normal3-12[facility] HospitalComment on above:Performed By: #### CMPX, CDP #### [address] [place] [address] Two [address] Radio Technician: Guerda Mckenzieutrophil (Seg)87 %Fvix95-57TpgdtBluffton Hospital Comment on above:Performed By: #### CMPX, CDP #### [address] [place], [facility] Two Way Radio Technician: Apolinar Lemus MDNRBC Automated0.0 per 100 WBCNormal0.0[facility] HospitalComment on above:Performed By: #### CMPX, CDP #### [address] [place], [place] 0520083 Two Way Radio Technician: Rajat Mckenzietezee mean volume (Bld) [Entitic vol]9.0 fL Normal8.1-13.5[facility] HospitalComment on above:Performed By: #### CMPX, CDP #### [address] [place], [place] 2454283 Two Way Radio Technician: ROJAS Mckenzielatelets (Bld) [#/Vol]200 10*3/vRBvbthw674-810 [facility] HospitalComment on above:Performed By: #### CMPX, CDP #### [address] [place], [place] 7014783 Two Way Radio Technician: GEOVANY Mckenzie ([facility]) [#/Vol]4.57 10*6/uLNormal3.95-5.11[facility] HospitalComment on above:Performed By: #### CMPX, CDP #### [address] [place], [place] 1143483 Two Way Radio Technician: RAZA Mckenzie ([facility]) [#/Vol]10.0 10*3/uLNormal3.5-11.3MUniversity Hospitals Beachwood [facility] HospitalComment on above:Performed By: #### CMPX, CDP #### [address] [place], [place] 4833283 Two Way Radio Technician: ANNITA Mckenzieomp Metabolic Profon 25-61-7590Tnwaqja [Mass/Vol] 3.4 g/dLLow3.5-5.2MUniversity Hospitals Beachwood Medical Center HospitalComment on above:Performed By: #### CMPX, CDP #### [address] [place] [address] [address] Radio Technician: Apolinar Lemus MDAlbumin/Glob Ratio1.2Whpkuj4.0-2.5[facility] HospitalComment on above:Performed By: #### CMPX, CDP #### [address] [place], [place] 8525583 Two Way Radio Technician: Germania Mckenziekaline Rddz223 U/OZpyx31-421Jofmm [facility]in HospitalComment on above:Performed By: #### CMPX, CDP #### [facility] [address] [place] [address] Dr. [place], [place] 5272983 Two Way Radio Technician: Apolinar Lemus MDALT [Catalytic activity/Vol]24 U/QCijipo68-07Hoqgy [facility] HospitalComment on above:Performed By: #### CMPX, CDP #### [facility] [address] [place] [address] Dr. [place], [place] 1825083 Two Way Radio Technician: Apolinar Sturtz, MDAnion gap [Moles/Vol]14 mmol/LNormal9-16[facility] HospitalComment on above:Performed By: #### CMPX, CDP #### [address] [place], [place] 1472583 Two Way Radio Technician: Apolinar Lemus MDAST [Catalytic activity/Vol]22 U/NSrkftd69-02KcrsmBluffton HospitalComment on above:Performed By: #### CMPX, CDP #### [address] [place] [address] [address] Radio Technician: Apolinar Lemus MDBilirubin [Mass/Vol]mg/dLNormal0.00-1.20[facility] HospitalComment on above:Performed By: #### CMPX, CDP #### [address] [place], [place] 7526983 Two Way Radio Technician: Apolinar Lemus MDBUN/CRE Mzemm88Vsalbg0-72Guozo [facility] Comment on above:Performed By: #### CMPX, CDP #### [address] [place] [address] [address] Radio Technician: Apolinar Lemus MDCalcium [Mass/Vol]8.6 mg/dLNormal8.6-10.4[facility] HospitalComment on above:Performed By: #### CMPX, CDP #### [address] [place] [address] [address] Radio Technician: Apolinar Lemus, MDChloride [Moles/Vol]100 mmol/XFsycol03-819SjlqkBluffton HospitalComment on above:Performed By: #### CMPX, CDP #### [address] [place], [place] 2481183 Two Way Radio Technician: Apolinar Lemus MDCO2 [Moles/Vol]20 mmol/VKobdva27-03Yjvmk [facility] HospitalComment on above:Performed By: #### CMPX, CDP #### [address] [place] [address] [address] Radio Technician: ANNITA Mckenziereatinine [Mass/Vol]1.4 mg/dLHigh0.50-0.90[facility] HospitalComment on above:Performed By: #### CMPX, CDP #### [address] [place] [address] [address] Radio Technician: Apolinar Lemus MDGFR/1.73 sq M.predicted among non-blacks MDRD (S/P/Bld) [Vol rate/Area]44 mL/min/{1.73_m2}Low>60MerYale [facility] Haven Psychiatric HospitalComment on above:Result Comment: These results are not intended for use in patients <18 years of age. eGFR results are calculated without a race factor using the 2020 CKD-EPI equation. Careful clinical correlation is recommended, particularly when comparing to results calculated using previous equations. The CKD-EPI equation is less accurate in patients with extremes of muscle mass, extra-renal metabolism of creatine, excessive creatine ingestion, or following therapy that affects renal tubular secretion.Performed By: #### CMPX, CDP #### [address] [place] [address] [address] Radio Technician: Apolinar Lemus MDGlucose [Mass/Vol]111 mg/aPFfgv21-93Vjvud [facility] [place] HospitalComment on above:Performed By: #### CMPX, CDP #### [address] [place] [address] [address] Radio Technician: ROJAS Mckenzieotassium [Moles/Vol]4.2 mmol/LNormal3.7-5.3MUniversity Hospitals Beachwood [facility] Center HospitalComment on above:Performed By: #### CMPX, CDP #### [address] [place] [address] [address] Radio Technician: Apolinar Lemus MDProtein [Mass/Vol]6.3 g/dLLow6.6-8.7[facility] HospitalComment on above:Performed By: #### CMPX, CDP #### [facility] [address] [place] [address] [address] Radio Technician: ADÁN Mckenzieodium [Moles/Vol]134 mmol/CLtk861-154CeuytBluffton HospitalComment on above:Performed By: #### CMPX, CDP #### [facility] [address] [place] [address] [address] Radio Technician: Apolinar Lemus MDUrea nitrogen [Mass/Vol]17 mg/dLNormal8-23[facility] HospitalComment on above:Performed By: #### CMPX, CDP #### [address] [place] [address] [address] Radio Technician: DA Mckenzie-Dimer Teston [id number]-Dimer Test3.58 ug/mL FEUHigh0.00-0.59[facility] HospitalComment on above:Result Comment: When combined with a low clinical probability, a D dimer value of <0.50 ug/mL FEU is considered negative for DVT and PE (negative predictive value of 98%, sensitivity of 97%). If this test is not being used to help rule out DVT and PE, then the following reference range should be utilized: 0.00 - 0.59 ug/mL FEU. The D-Dimer assay is intended for use as an aid in the diagnosis of venous thromboembolism (DVT and PE) and the results should be interpreted in conjunction with the patient's medical history, clinical presentation, and other findings. Elevated levels of D-dimer activity can be seen in any state of coagulation activation and is not recommended in patients with therapeutic dose anticoagulant therapy for >24 hours, fibrinolytic therapy within the previous 7 days, trauma or surgery within the previous 4 weeks, disseminated malignancies, aortic aneurysm, sepsis, severe infections, pneumonia, severe skin infections, liver cirrhosis, advanced age, coronary disease, diabetes, and . A very low percentage of patients with DVT may yield D-dimer results below the cutoff of 0.5 ug/mL FEU. This is known to be more prevalent in patients with distal DVT.Performed By: #### CMPX, CDP #### [facility] [address] [place] [address] [address] Radio Technician: Jaleel Mckenzie, Sepsison 68-22-7220Ctxggb Acid, Sepsis0.9 mmol/LNormal0.5-1.9[facility] HospitalComment on above:Performed By: #### GLYHGB #### [facility] [address], [place] [id number] Two Way Radio Technician: JULISSA Cardozo-CoV-2on 34-66-6086DJHR-CoV-2 (COVID-19) RNA JANIA+probe Ql (Unsp spec)Not detectedNormalNOTDEMetroHealth Parma Medical CenterComment on above:Result Comment: Rapid NAAT: The specimen is NEGATIVE for SARS-CoV-2, the novel coronavirus associated with COVID-19. The ID NOW COVID-19 assay is designed to detect the virus that causes COVID-19 in patients with signs and symptoms of infection who are suspected of COVID-19. An individual without symptoms of COVID-19 and who is not shedding SARS-CoV-2 virus would expect to have a negative (not detected) result in this assay. Negative results should be treated as presumptive and, if inconsistent with clinical signs and symptoms or necessary for patient management, should be tested with an alternative molecular assay. Negative results do not preclude SARS-CoV-2 infection and should not be used as the sole basis for patient management decisions. Fact sheet for Healthcare Providers: https://www.fda.gov/media/070737/download Fact sheet for Patients: https://www.fda.gov/media/467391/download Methodology: Isothermal Nucleic Acid AmplificationPerformed By: #### GLYHGB #### [employer] [address], [place] 3149308 Two Way Radio Technician: Rivera Cardozooponinon 79-31-3309Iubanzvp, High Sens35 ng/L High0-14[facility] HospitalComchelsea hospital on above:Result Comment: High Sensitivity Troponin values cannot be compared with other Troponin methodologies.Performed By: #### DAREKO UAX #### [facility] [address] [place], [place] [address]07[address]83 Two Way Radio Technician: Katerina Mckenzie High Sens33 ng/LHigh0-14[facility] HospitalComment on above:Result Comment: High Sensitivity Troponin values cannot be compared with other Troponin methodologies.Performed By: #### GLYHGB #### [facility] [address], [place] 3809708 Two Way Radio Technician: LEEANN Cardozo w/Reflex Cultureon 76-09-0012Mutcqnirh, SemiQt,UrNegativeNormalNEGBluffton HospitalComment on above:Performed By: #### UMICAO, UAX #### [facility] [address] [place], [place] 287[address]83 Two Way Radio Technician: Lai Mckenzie, UrineNegativeUniversity Hospitals Elyria [facility] Center Comment on above:Performed By: #### UMICAO, UAX #### [facility] [address] [place], [place] 706[address]83 Two Way Radio Technician: Lakesha Mckenzierity (U)SLIGHTLY CLOUDYAbnormalCLEARMercConnecticut Children's Medical CenterComment on above:Performed By: #### UMICAO, UAX #### [facility] [address] [place] [address] Dr. [place], [place] 2765183 Two Way Radio Technician: ANNITA Mckenzieolor (U)YellowNormalYGalion Hospital Comment on above:Performed By: #### UMICAO, UAX #### [facility] [address] [place], [place] 3354483 Two Way Radio Technician: Rayne Mckenzie Ql (U)NegativeNormalNEGBluffton HospitalComment on above:Performed By: #### UMICAO, UAX #### [facility] [address] [place], [place] 0040483 Two Way Radio Technician: Apolinar Sturtz, MDKetones Ql (U)NegativeNormalNEGBarney Children'S Medical Center HospitalComment on above:Performed By: #### DAREKO, UAX #### [facility] [address] [place] [address] Dr. [place], [place] 04[address] Two Way Radio Technician: Apolinar Lemus MDLeukocyte esterase Test strip Ql (U)SMALLAbnormal NEGBluffton HospitalComment on above:Performed By: #### GRACIE, UAX #### [facility] [address] [place] [address] Dr. [place], [place] 727[address]83 Two Way Radio Technician: Stephanie Mckenzietrite,UrNegativeNormalNEGGlenbeigh Hospital on above:Performed By: #### GRACIE, UAX #### [address] [place], [place] 5683383 Two Way Radio Technician: ROJAS Mckenzie,Ur6.9Tdiyet8.0-9.0[facility] HospitalComment on above:Performed By: #### GRACIE, UAX #### [address] [place], [place] 5596883 Two Way Radio Technician: Noelle Mckenzie Ql (U)2+ mg/dLAbnormalNEGBluffton HospitalComment on above:Performed By: #### GRACIE, UAX #### [facility] [address] [place] [address] Dr. [place], [place] 08[address]683 Two Way Radio Technician: ADÁN Mckenziepec. [place],Ur1.430Yyzz9.010-1.020[facility] HospitalComment on above:Performed By: #### GRACIE, UAX #### [facility] [address] [place] [address] Dr. [place], [place] 3209883 Two Way Radio Technician: Tahmina Mckenziebilinogen,UrNormalNormal0.0-1.0[facility] HospitalComment on above:Performed By: #### DAREKO, UAX #### [facility] [address] [place], [place] [address]60[address]83 Two Way Radio Technician: Apolinar Lemus MDUrinalysis,Microon 36-62-2730Zttdcqmm8+Abnormal NONEMercy New Berlin HospitalComment on above:Performed By: #### GRACIE, UAX #### [facility] [address] [place], [place] 360[address]83 Two Way Radio Technician: Apolinar Lemus MDEpithelial cells LM Ql (Urine sed)2 TO 9Jcifsi6-66 [facility] HospitalComment on above:Performed By: #### GRACIE UAX #### [facility] [address] [place], [place] 299[address]83 Two Way Radio Technician: Apolinar Lemus MDEpithelial, Renal0 TO 9Rhivct0Wyrvu [facility] [place] HospitalComment on above:Performed By: #### GRACIE UAX #### [facility] [address] [place], [place] 8039683 Two Way Radio Technician: Apolinar Lemus MDUrine RBC's0 TO 9Fwkoer6-0Cwrsx [facility] Comment on above:Performed By: #### GRACIE UAX #### [facility] [address] [place], [place] 2617[address] Two Way Radio Technician: Apolinar Lemus MDUrine WBC's5 TO 17Bcbvhv8-3Nmfwg [facility] Comment on above:Performed By: #### GRACIE UAX #### [facility] [address] [place] [address] [address] Radio Technician: BRYCE Mckenzie CHEST PORTABLEon [id number] CHEST PORTABLE EXAMINATION: ONE XRAY VIEW OF THE CHEST 01/02/2024 4:29 pm COMPARISON: 11/11/2023 HISTORY: ORDERING SYSTEM PROVIDED HISTORY: Difficulty breathing TECHNOLOGIST PROVIDED HISTORY: Difficulty breathing FINDINGS: The cardiomediastinal silhouette is unchanged in appearance. Pulmonary arterial shadow enlargement again noted. There is no consolidation, pneumothorax, or evidence of edema. No effusion is appreciated. The osseous structures are unchanged in appearance. IMPRESSION: No acute airspace disease identified. Interpreted by: Diego Alcantara MD Signed by: Diego Alcantara MD 01/02/24 Final resultNoCleveland Clinic South Pointe HospitalXR TIBIA FIBULA LEFT (2 VIEWS)on [id number] TIBIA FIBULA LEFT (2 VIEWS)EXAMINATION: 2 XRAY VIEWS OF THE LEFT TIBIA AND FIBULA 01/02/2024 4:28 pm COMPARISON: None. HISTORY: ORDERING SYSTEM PROVIDED HISTORY: Swelling/erythema TECHNOLOGIST PROVIDED HISTORY: Swelling/erythema FINDINGS: The shafts of the radius and ulna appear intact without radiographic evidence of acute fracture seen. No discrete cortical erosion or antoni bony destructive changes are seen to confirm acute osteomyelitis radiographically. There are surgical clips overlying the posteromedial soft tissues of the proximal calf. The alignment of the knee and the ankle joints appear grossly anatomic on this nondedicated study. There is 2 mm focus of lucency within the medial talar dome, which may reflect overlying osteochondral pathology. There is small plantar and posterior calcaneal spurs. IMPRESSION: No discrete cortical erosion or antoni bony destructive changes of the shaft of the tibia/fibula seen to confirm acute osteomyelitis on radiograph. Possible small osteochondral lesion overlying the medial talar dome. Interpreted by: Zach Jacobs MD Signed by: Zach Jacobs MD 01/02/24 Final resultNoCleveland Clinic South Pointe HospitalBasic Metab w/rfx MGon 86-85-3641Vpjyv gap [Moles/Vol]15 mmol/LNormal9-17[facility] HospitalComment on above:Performed By: #### ELY BMPX #### [employer] [address] [place] [address] [address] Radio Technician: ANNITA Cardozoalcium [Mass/Vol]9.1 mg/dLNormal8.6-10.4[facility] HospitalComment on above:Performed By: #### ELY BMPX #### [employer] [address] [place] [id number] Two [address] Radio Technician: Mark Liriano MDChloride [Moles/Vol]96 mmol/LWet89-611LmsdvPromedica Flower HospitalComment on above:Performed By: #### CDP, BMPX #### [facility] [address] [place] [address] Two [address] Radio Technician: Mark Liriano MDCO2 [Moles/Vol]26 mmol/TYybgtu71-16VfvopPromedica Flower HospitalComment on above:Performed By: #### CDP, BMPX #### [facility] [address] [place] [address] [address] Radio Technician: ANNITA Cardozoreatinine [Mass/Vol]0.8 mg/dLNormal0.5-0.9[facility] HospitalComment on above:Performed By: #### ELY, BMPX #### [facility] [employer] [address] [place] [address] Two [address] Radio Technician: Mark Liriano MDGFR/1.73 sq M.predicted among non-blacks MDRD (S/P/Bld) [Vol rate/Area]mL/min/{1.73_m2}Normal>60[facility] HospitalComment on above:Result Comment: These results are not intended for use in patients <18 years of age. eGFR results are calculated without a race factor using the 2020 CKD-EPI equation. Careful clinical correlation is recommended, particularly when comparing to results calculated using previous equations. The CKD-EPI equation is less accurate in patients with extremes of muscle mass, extra-renal metabolism of creatine, excessive creatine ingestion, or following therapy that affects renal tubular secretion.Performed By: #### ELY, BMPX #### [facility] [address] [place] [address] Two [address] Radio Technician: Mark Liriano MDGlucose [Mass/Vol]240 mg/yFBdee91-64GxridGarfield Medical CenterComment on above:Performed By: #### CDP, BMPX #### [facility] [address] [place] [address] Two [address] Radio Technician: ROJAS Cardozootassium [Moles/Vol]4.3 mmol/LNormal3.7-5.3 [facility] HospitalComment on above:Performed By: #### CDP, BMPX #### [address] [address] [address] Radio Technician: ADÁN Cardozoodium [Moles/Vol]137 mmol/BPxscae542-088NjrfcPromedica Flower HospitalComment on above:Performed By: #### CDP, BMPX #### [address] [address] [address] Radio Technician: Mark Liriano MDUrea nitrogen [Mass/Vol]22 mg/dLNormal8-23[facility] HospitalComment on above:Performed By: #### CDP, BMPX #### [address] [address] Two [address] Radio Technician: Heath Cardozo 08-59-3951Ynowfngrhlg distribution width (RBC) [Ratio]18.6 %High11.8-14.4[facility] HospitalComment on above:Performed By: #### BMP, BNP, MG, CBC #### [address] [address] [address] Radio Technician: BUZZ CardozoCH (RBC) [Entitic mass]28.3 irXfbcii06.2-33.5 [facility] HospitalComment on above:Performed By: #### BMP, BNP, MG, CBC #### [facility] [employer] [address] [place] [address] [address] Radio Technician: BUZZ CardozoCHC (RBC) [Mass/Vol]30.3 g/qXUshvbc09.4-34.8 [facility] HospitalComment on above:Performed By: #### BMP, BNP, MG, CBC #### [facility] [employer] [address] [place] [address] Two [address] Radio Technician: BUZZ CardozoCV (RBC) [Entitic vol]93.5 dPEieqgy44.6-102.9 [facility] HospitalComment on above:Performed By: #### BMP, BNP, MG, CBC #### [facility] [employer] [address] [place] [address] Two [address] Radio Technician: SVETLANA Cardozo Automated0.3 per 100 WBCHigh0.0Prom[facility] F[facility] HospitalComment on above:Performed By: #### BMP, BNP, MG, CBC #### [facility] [employer] [address] [place] [address] Two [address] Radio Technician: Nicanor Cardozo mean volume (Bld) [Entitic vol]10.4 fL Normal8.1-13.5Prom[facility] F[facility] HospitalComment on above:Performed By: #### BMP, BNP, MG, CBC #### [address] [address] [address] Radio Technician: Corey Cardozo (Bld) [#/Vol]214 10*3/sQWrvmyv593-936 [facility] HospitalComment on above:Performed By: #### BMP, BNP, MG, CBC #### [address] [address] [address] Radio Technician: GEOVANY Cardozo (Bld) [#/Vol]4.45 10*6/uLNormal3.95-5.11 [facility] HospitalComment on above:Performed By: #### BMP, BNP, MG, CBC #### [facility] [employer] [address] [place] [address] Two [address] Radio Technician: RAZA Cardozo (Bld) [#/Vol]6.0 10*3/uLNormal3.5-11.3MGarfield Medical CenterComment on above:Performed By: #### BMP, BNP, MG, CBC #### [facility] [employer] [address] [place] [address] Two [address] Radio Technician: Mark Liriano MDHematocrit (Bld) [Volume fraction]41.0 %Normal 36.3-47.1MGarfield Medical CenterComment on above:Performed By: #### BMP, BNP, MG, CBC #### [address] [address] [address] Radio Technician: Mark Liriano MDHemoglobin (Bld) [Mass/Vol]12.6 g/dLNormal 11.9-15.1MGarfield Medical CenterComment on above:Performed By: #### BMP, BNP, MG, CBC #### [address] [address] [address] Radio Technician: FELISHA Cardozo with Diffon [id number]. Basophil<0.03 Normal0.00-0.20Promedica Flower HospitalComment on above:Performed By: #### CDP, BMPX #### [address] [address] [address] Radio Technician: Cruz Cardozo. Eosinophil<0.84Zkjnoy0.00-0.44Prom[facility] Flower HospitalComment on above:Performed By: #### CDP, BMPX #### [address] [address] [address] Radio Technician: Cruz Cardozo.Imm.Granulocyte0.04 k/uLNormal0.00-0.30Prom[facility]ica Flower HospitalComment on above:Performed By: #### CDP, BMPX #### [address] [address] [address] Radio Technician: Cruz Cardozo.Neutrophil (Seg)5.37 k/uLNormal1.50-8.10 [facility] Flower HospitalComment on above:Performed By: #### CDP, BMPX #### [id number] Radio Technician: Mark Liriano MDBasophils/100 WBC (Bld)0 %Normal0-2[facility]c Pediatric HospitalComment on above:Performed By: #### CDP, BMPX #### [facility] [address] [place] [address] [address] Radio Technician: Mark Liriano MDEosinophils/100 WBC (Bld)0 %Low1-4MerLoma Linda University Medical CenterComment on above:Performed By: #### CDP, BMPX #### [facility] [address] [place] [address] [address] [address] Radio Technician: Mark Liirano MDErythrocyte distribution width (RBC) [Ratio]18.5 %High11.8-14.4Prom[facility] Flower HospitalComment on above:Performed By: #### ELY, BMPX #### [address] [address] [address] Radio Technician: Mark Liriano MDHematocrit (Bld) [Volume fraction]43.8 %Normal 36.3-47.1[facility] Chonc Pediatric HospitalComment on above:Performed By: #### ELY, BMPX #### [address] [address] [address] Radio Technician: Mark Liriano MDHemoglobin (Bld) [Mass/Vol]13.5 g/dLNormal 11.9-15.1[facility] Chonc Pediatric HospitalComment on above:Performed By: #### CDP, BMPX #### [facility] [address] [place] [address] [address] Radio Technician: Mark Liriano MDImmature granulocytes/100 WBC (Bld)1 %Dtqb6BywzhPromedica Flower HospitalComment on above:Performed By: #### CDP, BMPX #### [facility] [address] [place] [address] [address] [address] Radio Technician: Mark Liriano MDLymphocytes (Bld) [#/Vol]0.75 10*3/uLLow 1.10-3.70Prom[facility] Flower HospitalComment on above:Performed By: #### CDP, BMPX #### [address] [address] [address] Radio Technician: Mark Liriano MDLymphocytes/100 WBC (Bld)11 %Sse97-43IedtzPromedica Flower HospitalComment on above:Performed By: #### CDP, BMPX #### [address] [address] [address] Radio Technician: BUZZ CardozoCH (RBC) [Entitic mass]28.1 xdQmvssj94.2-33.5 [facility] Flower HospitalComment on above:Performed By: #### ELY, BMPX #### [address] [address] [address] Radio Technician: BUZZ CardozoCHC (RBC) [Mass/Vol]30.8 g/yFMpzvog95.4-34.8 [facility] Flower HospitalComment on above:Performed By: #### ELY, BMPX #### [address] [address] [address] Radio Technician: BUZZ CardozoCV (RBC) [Entitic vol]91.1 hANsgrlu66.6-102.9 [facility] Flower HospitalComment on above:Performed By: #### ELY, BMPX #### [address] [address] [address] Radio Technician: BUZZ Cardozoonocytes (Bld) [#/Vol]0.58 10*3/uLNormal 0.10-1.20[facility] Flower HospitalComment on above:Performed By: #### ELY, BMPX #### [address] [address] [address] Radio Technician: Mark Madoff, MDMonocytes/100 WBC (Bld)9 %Normal3-12Prom[facility] Flower HospitalComment on above:Performed By: #### CDP, BMPX #### [address] [address] [address] Radio Technician: Mark Liriano MDNeutrophil (Seg)79 %Ospo51-43UatkqPromedica Flower HospitalComment on above:Performed By: #### CDP, BMPX #### [address] [address] [address] Radio Technician: Mark Liriano MDNRBC Automated0.0 per 100 WBCNormal0.0Prom[facility] Flower HospitalComment on above:Performed By: #### CDP, BMPX #### [address] [address] [address] Radio Technician: Rajat Cardozotezee mean volume (Bld) [Entitic vol]10.2 fL Normal8.1-13.5Prom[facility]ica Flower HospitalComment on above:Performed By: #### LEY, BMPX #### [address] [address] [address] Radio Technician: ROJAS Cardozolatelets (Bld) [#/Vol]175 10*3/rBWnclzr215-811 [facility] Flower HospitalComment on above:Performed By: #### CDP, BMPX #### [address] [address] [address] Radio Technician: Mark Liriano MDRBC (Bld) [#/Vol]4.81 10*6/uLNormal3.95-5.11 [facility] Flower HospitalComment on above:Performed By: #### CDP, BMPX #### [address] [address] [address] Radio Technician: GEOVANY Cardozo morphology finding Nom (Bld)ANISOCYTOSIS PRESENTNormalMerLoma Linda University Medical CenterComment on above:Performed By: #### CDP, BMPX #### [address] [address] [address] Radio Technician: RAZA Cardozo ([facility]) [#/Vol]6.7 10*3/uLNormal3.5-11.3MGarfield Medical CenterComment on above:Performed By: #### CDP, BMPX #### [address] [address] [address] Radio Technician: Mark Liriano MDHgb/Hcton 78-54-1841XwkuwgdlwzXSXTIPDGJ RESULTS. CLERICAL ERROR.Dqkcka71.3-47.1MGarfield Medical CenterComment on above: Result Comment: CORRECTED ON 12/14 AT 0522: PREVIOUSLY REPORTED 41.0Performed By: #### HH #### [address] [address] [address] Radio Technician: Mark Liriano MDHemoglobinDISREGARD RESULTS. CLERICAL ERROR. Tkgabo43.9-15.1MGarfield Medical CenterComment on above:Result Comment: CORRECTED ON 12/14 AT 0522: PREVIOUSLY REPORTED 12.6Performed By: #### HH #### [address] [address] [address] Radio Technician: Mihaela Cardozo Metabolic Profon 37-70-5116Gmfkr gap [Moles/Vol]14 mmol/LNormal9-17Prom[facility]ica Flower HospitalComment on above: Performed By: #### BMP, BNP, MG, CBC #### [facility] [employer] [address] [place] [address] [address] Radio Technician: ANNITA Cardozoalcium [Mass/Vol]8.7 mg/dLNormal8.6-10.4Prom[facility] Flower HospitalComment on above:Performed By: #### BMP, BNP, MG, CBC #### [facility] [employer] [address] [place] [address] [address] Radio Technician: ANNITA Cardozohloride [Moles/Vol]95 mmol/AVns04-750VpwtdPromedica Flower HospitalComment on above:Performed By: #### BMP, BNP, MG, CBC #### [facility] [address] [place] [address] [address] Radio Technician: Mark Liriano MDCO2 [Moles/Vol]24 mmol/YIhnibs84-55NrffmPromedica Flower HospitalComment on above:Performed By: #### BMP, BNP, MG, CBC #### [facility] [address] [place] [address] [address] [address] Radio Technician: ANNITA Cardozoreatinine [Mass/Vol]0.7 mg/dLNormal0.5-0.9[facility] Flower HospitalComment on above:Performed By: #### BMP, BNP, MG, CBC #### [facility] [address] [place] [address] [address] Radio Technician: Mark Liriano MDGFR/1.73 sq M.predicted among non-blacks MDRD (S/P/Bld) [Vol rate/Area]mL/min/{1.73_m2}Normal>60Prom[facility] Flower HospitalComment on above:Result Comment: These results are not intended for use in patients <18 years of age. eGFR results are calculated without a race factor using the 2020 CKD-EPI equation. Careful clinical correlation is recommended, particularly when comparing to results calculated using previous equations. The CKD-EPI equation is less accurate in patients with extremes of muscle mass, extra-renal metabolism of creatine, excessive creatine ingestion, or following therapy that affects renal tubular secretion.Performed By: #### BMP, BNP, MG, CBC #### [facility] [address] [place] [address] [address] Radio Technician: Mark Liriano MDGlucose [Mass/Vol]273 mg/lBVnhx11-65BgamvHighland Springs Surgical CenterComment on above:Performed By: #### BMP, BNP, MG, CBC #### [facility] [place] [address] [address] Technician: ROJAS Cardozootassium [Moles/Vol]4.1 mmol/LNormal3.7-5.3 [facility] Flower HospitalComment on above:Performed By: #### BMP, BNP, MG, CBC #### [facility] [address] [place] [address] [address] Radio Technician: Mark Liriano MDSodium [Moles/Vol]133 mmol/BBwn908-033VfujpPromedica Flower HospitalComment on above:Performed By: #### BMP, BNP, MG, CBC #### [facility] [address] [place] [address] [address] Radio Technician: Mark Liriano MDUrea nitrogen [Mass/Vol]20 mg/dLNormal8-23Prom[facility] Flower HospitalComment on above:Performed By: #### BMP, BNP, MG, CBC #### [facility] [address] [place] [address] [address] [address] Radio Technician: Mark Liriano MDBrain Natri. Peptideon 11-80-4990Oqqxzpbwbzp peptide B (Bld) [Mass/Vol]4124 pg/mLHigh<300[facility] Comment on above:Result Comment: An age-independent cutoff point of 300 pg/ml has a 98% negative predictive value excluding acute heart failure.Performed By: #### BMP, BNP, MG, CBC #### [facility] [address] [place] [address] [address] Radio Technician: Mark Liriano MDHgb/Hcton 94-18-8337Lykbzdczhz (Bld) [Volume fraction]43.8 %Ovtuhk09.3-47.1MGarfield Medical CenterComment on above: Performed By: #### HH #### [facility] [address] [place] [address] Radio Technician: Mark Liriano MDHemoglobin (Bld) [Mass/Vol]13.4 g/dLNormal 11.9-15.1Mer[facility] Chonc Pediatric HospitalComment on above:Performed By: #### HH #### [employer] [address] [place], [place] [id number] Radio Technician: Mark Liriano MDMagnesiumon 65-18-1669Eondoktrj [Mass/Vol]2.2 mg/dLNormal1.6-2.6Mer[facility] Chonc Pediatric HospitalComment on above:Performed By: #### BMP, BNP, MG, CBC #### [employer] [address] [place], [place] [id number] Radio Technician: Mark Liriano [facility] GR[facility]BC with Auto Differentialon 16-21-5184Iwyifltuo (Bld) [#/Vol][facility]PITALBasophils/100 WBC (Bld)0 %0 - 2 %[facility] HOSPITALEosinophils (Bld) [#/Vol][facility] Eosinophils/100 WBC (Bld)0 %Low1 - 4 %[facility] HOSPITALErythrocyte distribution width (RBC) [Ratio]18.6 %High11.8 - 14.4 %[facility] Hematocrit (Bld) [Volume fraction]36.2 %Low36.3 - 47.1 %[facility] Hemoglobin (Bld) [Mass/Vol]11.6 g/dLLow11.9 - 15.1 g/dLBON [facility] Immature granulocytes (Bld) [#/Vol]0.06 10*3/uLBON SECSELECT [facility]AST OHIOImmature granulocytes/100 WBC (Bld)1 %Jhur6HMV LUTHERAN HOSPITALInterpretation and review of laboratory resultsAbnormalBON SECSELECT [facility]ICAL [facility]TY [facility] SOUTHEAST OHIOLymphocytes/100 WBC (Bld)9 %Low24 - 43 %[facility]SELECT [facility] SOUTHEAST OHIOLymphocytes/100 WBC (Bld)0.75 %Low BON [facility] CENTERH (RBC) [Entitic mass]28.2 pg25.2 - 33.5 pgBON SECOURS MERCY HEALTHMCHC (RBC) [Mass/Vol]32.0 g/dL28.4 - 34.8 g/dLBON LUTHERAN HOSPITALMCV (RBC) [Entitic vol]88.1 fL82.6 - 102.9 fLCUMBERLAND HOSPITAL Monocytes/100 WBC (Bld)3 %3 - 12 %[facility]HERAN HOSPITALMonocytes/100 WBC (Bld)0.23 %[facility] HOSPITALNeutrophils/100 WBC (Bld)87 %High36 - 65 %BON LUTHERAN HOSPITALNRBC Automated0.00.0 per 100 WBCCUMBERLAND HOSPITAL Platelet mean volume (Bld) [Entitic vol]9.4 fL8.1 - 13.5 fLCUMBERLAND HOSPITALPlatelets (Bld) [#/Vol]216 10*3/uLBON LUTHERAN HOSPITALRBC (Bld) [#/Vol]4.11 10*6/uL3.95 - 5.11 m/uLCUMBERLAND HOSPITALSegmented neutrophils/100 WBC (Bld)7.04 %BON LUTHERAN HOSPITALWBC other (Bld) [#/Vol] 8.1BON [facility] HOSPITALComprehensive Metabolic Panel on 10-35-6794Xpqstje [Mass/Vol]4.1 g/dL3.5 - 5.2 g/dLBON [facility] Albumin/Globulin [Mass ratio]1.3 {ratio}1.0 - 2.5BON [facility] HEALTHALP [Catalytic activity/Vol]121 U/LHigh35 - 104 U/LBON [facility]ITAL HEALTHALT [Catalytic activity/Vol]29 U/L5 - 33 U/LBON LUTHERAN HOSPITALAnion gap [Moles/Vol]8 mmol/LLow9 - 17 mmol/LBON [facility]ITAL HEALTHAST [Catalytic activity/Vol]16 U/LNINF - 32 U/LBON [facility] HEALTHBilirubin [Mass/Vol]0.3 mg/dL0.3 - 1.2 mg/dLBON [facility] HEALTHCalcium [Mass/Vol]9.1 mg/dL8.6 - 10.4 mg/dLBON [facility]ITAL HEALTHChloride [Moles/Vol]103 mmol/L98 - 107 mmol/L [facility] HEALTHCO2 [Moles/Vol]27 mmol/L20 - 31 mmol/LBON SEC[facility]ENTERY [facility] HOSPITALCreatinine [Mass/Vol]0.73 mg/dL0.50 - 0.90 mg/dLBON SECHARBORVIEW MEDICAL CENTERProtective Systems [facility] GFR/1.73 sq M.predicted MDRD (S/P/Bld) [Vol rate/Area]- PINFBON LUTHERAN HOSPITALComment on above: These results are not intended for use in patients <18 years of age. eGFR results are calculated without a race factor using the 2020 CKD-EPI equation. Careful clinical correlation is recommended, particularly when comparing to results calculated using previous equations. The CKD-EPI equation is less accurate in patients with extremes of muscle mass, extra-renal metabolism of creatine, excessive creatine ingestion, or following therapy that affects renal tubular secretion. Glucose [Mass/Vol]171 mg/fXTsfs39 - 99 mg/dLBON GLENDORA COMMUNITY HOSPITALZang Interpretation and review of laboratory resultsAbnormalBON [facility]ALTH Potassium [Moles/Vol]4.9 mmol/L3.7 - 5.3 mmol/LBON SECOURS [facility]ENTERY HEALTHProtein [Mass/Vol]7.2 g/dL6.4 - 8.3 g/dLBON SECOURS [facility] CENTERSodium [Moles/Vol]138 mmol/L135 - 144 mmol/LBON SECSURGICAL SPECIALTY CENTER 360TUrea nitrogen [Mass/Vol]33 mg/dL High8 - 23 mg/dLB[facility] 360TUrea nitrogen/Creatinine (Bld) [Mass ratio]84Hklq6 - 20B[facility] HEALTHBON [facility] HOSPITALCBC with Auto Differentialon 90-10-8200Brzpmven Eos #0.18[facility] HEALTHAbsolute Immature GranulocyteBON SECOURS MERCY HEALTHAbsolute Lymph #1.21[facility] HEALTHAbsolute [place] #0.40[facility] HEALTHBasophils (Bld) [#/Vol] 0.09 10*3/uLBON [facility]OURS MERCY HEALTHBasophils/100 WBC (Bld)1 %0 - 2 %[facility] SEC[facility]RS [facility] HOSPITALEosinophils/100 WBC (Bld)2 %1 - 4 %[facility] Hematocrit (Bld) [Volume fraction]44.5 %36.3 - 47.1 %[facility] Hemoglobin (Bld) [Mass/Vol]14.5 g/dL11.9 - 15.1 g/dLBON [facility] Immature granulocytes/100 WBC (Bld)0 %0C[facility]LAND HOSPITALInterpretation and review of laboratory resultsAbnormalBON LUTHERAN HOSPITALLymphocytes/100 WBC (Bld)15 %Low24 - 43 %[facility]OSPITALH (RBC) [Entitic mass]28.3 pg 25.2 - 33.5 pgBON SOUTHVIEW MEDICAL CENTERHC (RBC) [Mass/Vol]32.6 g/dL28.4 - 34.8 g/dLBON SOUTHVIEW MEDICAL CENTERV (RBC) [Entitic vol]86.9 fL82.6 - 102.9 fLCUMBERLAND HOSPITALMonocytes/100 WBC (Bld)5 %3 - 12 %[facility] NRBC Automated0.00.0 per 100 WBCBON LUTHERAN HOSPITALPlatelet distribution width (Bld) [Ratio]17.2 %High11.8 - 14.4 %[facility] HOSPITALPlatelet mean volume (Bld) [Entitic vol]9.1 fL8.1 - 13.5 fLCUMBERLAND HOSPITALPlatelets (Bld) [#/Vol]241 10*3/uLBON LUTHERAN HOSPITALRBC (Bld) [#/Vol]5.12 10*6/uL High3.95 - 5.11 m/uLCUMBERLAND HOSPITALSegmented neutrophils/100 WBC (Bld) 77 %High36 - 65 %[facility]BERLAND HOSPITALSegs Absolute6.18BON LUTHERAN HOSPITALWBC (Bld) [#/Vol]8.1 10*3/uLBON [facility] HOSPITALComprehensive Metabolic Panelon [id number] [Mass/Vol]4.5 g/dL3.5 - 5.2 g/dLBON LUTHERAN HOSPITALAlbumin/Globulin [Mass ratio]1.5 {ratio}1.0 - 2.5BON [facility] Satiety [facility]AC[facility] HOSPITALALP [Catalytic activity/Vol]95 U/L35 - 104 U/LBON [facility]CHARBORVIEW MEDICAL CENTERProtective Systems [facility]OSPITALALT [Catalytic activity/Vol]10 U/L5 - 33 U/LBON [facility] HOSPITALZangAnion gap [Moles/Vol]12 mmol/L9 - 17 mmol/LBON [facility] 360T AST [Catalytic activity/Vol]13 U/LNINF - 32 U/LB[facility] 360TBilirubin [Mass/Vol]0.2 mg/dLLow0.3 - 1.2 mg/dLBON LUTHERAN HOSPITALCalcium [Mass/Vol] 10.1 mg/dL8.6 - 10.4 mg/dLBON GLENDORA COMMUNITY HOSPITALZangChloride [Moles/Vol]101 mmol/L 98 - 107 mmol/LBON [facility] 360TCO2 [Moles/Vol]27 mmol/L20 - 31 mmol/LB[facility] 360TCreatinine [Mass/Vol]0.96 mg/dLHigh0.50 - 0.90 mg/dLBON GLENDORA COMMUNITY HOSPITALZangGFR/1.73 sq M.predicted MDRD (S/P/Bld) [Vol rate/Area]- [facility] 360TComment on above: These results are not intended for use in patients <18 years of age. eGFR results are calculated without a race factor using the 2020 CKD-EPI equation. Careful clinical correlation is recommended, particularly when comparing to results calculated using previous equations. The CKD-EPI equation is less accurate in patients with extremes of muscle mass, extra-renal metabolism of creatine, excessive creatine ingestion, or following therapy that affects renal tubular secretion. Glucose [Mass/Vol]137 mg/sQUfpi13 - 99 mg/dLBON GLENDORA COMMUNITY HOSPITALZang Interpretation and review of laboratory resultsAbnormalBON [facility] 360T Potassium [Moles/Vol]4.3 mmol/L3.7 - 5.3 mmol/LBON GLENDORA COMMUNITY HOSPITALZangProtein [Mass/Vol]7.6 g/dL6.4 - 8.3 g/dLBON GLENDORA COMMUNITY HOSPITALProtective Systems [facility]OSPITALSodium [Moles/Vol]140 mmol/L135 - 144 mmol/LBON GLENDORA COMMUNITY HOSPITALZangUrea nitrogen [Mass/Vol]22 mg/dL8 - 23 mg/dLBON LUTHERAN HOSPITALUrea nitrogen/Creatinine (Bld) [Mass ratio]23 High9 - 20BON [facility] PEACE HOSPITALLipid Panelon [id number] [Mass/Vol]231 mg/dLHighNINF - 200 mg/dLBON LUTHERAN HOSPITALComment on above: Cholesterol Guidelines: <200 Desirable 200-240 Borderline >240 Undesirable Cholesterol in HDL [Mass/Vol]46 mg/dL40 - PINF mg/dLBON [facility] Comment on above: HDL Guidelines: <40 Undesirable 40-59 Borderline >59 Desirable Cholesterol in LDL [Mass/Vol]139 mg/dLHigh0 - 130 mg/dLBON [facility] 360T Comment on above: LDL Guidelines: <100 Desirable 100-129 Near to/above Desirable 130-159 Borderline >159 Undesirable Direct (measured) LDL and calculated LDL are not interchangeable tests. Cholesterol.total/Cholesterol in HDL [Mass ratio]5 {ratio}HighNINF - 5BON [facility]OSPITALInterpretation and review of laboratory resultsAbnormBath Community HospitalTriglyceride [Mass/Vol]232 mg/dLHighNINF - 150 mg/dLBON LUTHERAN HOSPITALComment on above: Triglyceride Guidelines: <150 Desirable 150-199 Borderline 200-499 High >499 Very high Based on AHA Guidelines for fasting triglyceride, December 2011. [facility]ITALMicroalbumin, Uron 20-90-1891Vcmcruh/Creatinine DL <= 20 mg/L (24H U) [Mass ratio]749 mg/LHighNINF - 21 mg/LBON [facility] Albumin/Creatinine DL <= 20 mg/L (U) [Ratio]775HighNINFCUMBERLAND HOSPITAL Creatinine [Mass/Vol]96.7 mg/dL28.0 - 217.0 mg/dLBON [facility] Interpretation and review of laboratory resultsAbnormInova Fair Oaks HospitalTSH With Reflex Ft4on 26-49-0314RUB Qn2.20 m[IU]/LBON [facility] HOSPITALUrine Drug Screenon 07-26-2022 Amphetamine Screen, UrPositiveAbnormalNEGATIVEBON [facility]CY HEALTHComment on above: (Positive cutoff 1000 ng/mL) Barbiturate Screen, UrNegativeNEGATIVEB[facility]CY HEALTHComment on above: (Positive cutoff 200 ng/mL) Benzodiazepine Screen, UrineNegativeNEGATIVEB[facility]CY HEALTHComment on above: (Positive cutoff 200 ng/mL) Buprenorphine UrineNegativeNEGATIVEB[facility]CY HEALTHComment on above: (Positive cutoff 5 ng/ml) Cannabinoid Scrn, UrNegativeNEGATIVEBON [facility]CY HEALTHComment on above: (Positive cutoff 50 ng/mL) Cocaine Metabolite, UrineNegativeNEGATIVEB[facility] MERCY HEALTHComment on above: (Positive cutoff 300 ng/mL) Fentanyl, UrNegativeNEGATIVEBON [facility]CY HEALTHComment on above: (Positive cutoff 5 ng/ml) Interpretation and review of laboratory resultsAbnormalCUMBERLAND HOSPITAL Methadone Screen, UrineNegativeNEGATIVEBON SECHARBOR[facility]ENTERY HEALTHComment on above: (Positive cutoff 300 ng/mL) Opiates, UrineNegativeNEGATIVEB[facility] HEALTHComment on above: (Positive cutoff 300 ng/mL) Oxycodone Screen, UrPositiveAbnormalNEGATIVEBON [facility]ERY HEALTHComment on above: (Positive cutoff 100 ng/mL) Phencyclidine, UrineNegativeNEGATIVEBON SECHARBORVIEW MEDICAL CENTERY HEALTHComment on above: (Positive cutoff 25 ng/mL) Test InformationAssay provides medical screening only. The absence of expected drug(s) and/or metabolite(s) may indicate diluted or adulterated urine, limitations of testing or timing of collection.[facility] on above:Testing for legal purposes should be confirmed by another method. To request confirmation of test result, please call the lab within 7 days of sample submission. [facility] HOSPITALVitamin D 25 Hydroxyon [id number]-tqlooavknbghnx D3 [Mass/Vol]14.9 ng/mLLow29.9 - PINF ng/mLRiverside Health System on above: Reference Range: Vitamin D status Range Deficiency <20 ng/mL Mild Deficiency 20-30 ng/mL Sufficiency 30-100 ng/mL Toxicity >100 ng/mL Interpretation and review of laboratory resultsAbnormalRETREAT DOCTORS' HOSPITALNo Panel Informationon . No acute osseous abnormality identified in the lumbar spine or sacrum. 2. Advanced arthropathy in the lumbar spine and right hip, as described. [facility] CONSOLIDATEDEXAMINATION: 3 XRAY VIEWS OF THE LUMBAR SPINE; THREE XRAY VIEWS OF THE SACRUM/COCCYX 07/21/2022 11:31 am; 07/21/2022 11:32 am COMPARISON: CT and MRI exams 01/04/2022. HISTORY: ORDERING SYSTEM PROVIDED HISTORY: slip/fall TECHNOLOGIST PROVIDED HISTORY: slip/fall; ORDERING SYSTEM PROVIDED HISTORY: fall TECHNOLOGIST PROVIDED HISTORY: fall FINDINGS: Lumbar: The vertebral body heights are maintained. Degenerative grade 1 anterolisthesis of L2 again demonstrated. Severe disc space loss and degenerative sclerosis again demonstrated at L1-2, L4-5 and L5-S1. Advanced facet arthropathy is present throughout the lumbar spine. Surgical clips project in the right upper quadrant and overlying the pelvis. Calcified atheromatous plaque is present. Moderate stool burden. Severe arthropathy in the right hip with protrusio again demonstrated. Sacrum: Pelvic alignment is maintained. No acute osseous abnormality identified. Advanced arthropathy in the lower lumbar spine and right hip, as described above. Surgical clips project over the groin bilaterally. Moderate rectal stool burden. [facility] Diego Islas MD - 07/21/2022 EXAMINATION: 3 XRAY VIEWS OF THE LUMBAR SPINE; THREE XRAY VIEWS OF THE SACRUM/COCCYX 07/21/2022 11:31 am; 07/21/2022 11:32 am COMPARISON: CT and MRI exams 01/04/2022. HISTORY: ORDERING SYSTEM PROVIDED HISTORY: slip/fall TECHNOLOGIST PROVIDED HISTORY: slip/fall; ORDERING SYSTEM PROVIDED HISTORY: fall TECHNOLOGIST PROVIDED HISTORY: fall FINDINGS: Lumbar: The vertebral body heights are maintained. Degenerative grade 1 anterolisthesis of L2 again demonstrated. Severe disc space loss and degenerative sclerosis again demonstrated at L1-2, L4-5 and L5-S1. Advanced facet arthropathy is present throughout the lumbar spine. Surgical clips project in the right upper quadrant and overlying the pelvis. Calcified atheromatous plaque is present. Moderate stool burden. Severe arthropathy in the right hip with protrusio again demonstrated. Sacrum: Pelvic alignment is maintained. No acute osseous abnormality identified. Advanced arthropathy in the lower lumbar spine and right hip, as described above. Surgical clips project over the groin bilaterally. Moderate rectal stool burden. IMPRESSION: 1. No acute osseous abnormality identified in the lumbar spine or sacrum. 2. Advanced arthropathy in the lumbar spine and right hip, as described. [employer] Phone: No Panel InformationOrdered By: Diego Alcantara on [id number] Phone: xr LUMBAR SPINE (2-3 VIEWS)on [id number] Study observation (narrative)[employer] Phone: xr SACRUM COCCYX (MIN 2 VIEWS)on [id number] Study observation (narrative)[employer] Phone: ct ABDOMEN PELVIS W IV CONTRAST Additional Contrast? Oralon . Recurrence of a ventral hernia with more loops of small and large bowel in the hernia sac without evidence for obstruction. 2. 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 3. Severe right hip osteoarthritis with joint effusion. Septic arthritis cannot be excluded. Clinical correlation is recommended. 4. Hepatomegaly. PN RIS CONSOLIDATEDEXAMINATION: CT OF THE ABDOMEN AND PELVIS WITH CONTRAST 01/04/2022 1:18 pm TECHNIQUE: CT of the abdomen and pelvis was performed with the administration of intravenous contrast. Multiplanar reformatted images are provided for review. Automated exposure control, iterative reconstruction, and/or weight based adjustment of the mA/kV was utilized to reduce the radiation dose to as low as reasonably achievable. COMPARISON: 06/20/2021. HISTORY: ORDERING SYSTEM PROVIDED HISTORY: Recurrent abdominal hernia without obstruction or gangrene, unspecified hernia type TECHNOLOGIST PROVIDED HISTORY: STAT Creatinine as needed:->Yes Abdominal pain/mass FINDINGS: Lower Chest: The lung bases are clear. Note is made of cardiomegaly. Organs: The liver is enlarged. The gallbladder has been surgically removed. The spleen, pancreas and adrenal glands appear unremarkable. The right kidney is atrophic. There is symmetric enhancement of the kidneys. No hydronephrosis is seen. GI/Bowel: The bowel loops are not dilated. No bowel wall thickening is seen. There is a small bowel and transverse colon containing ventral hernia. The defect measures at least 7.6 cm. The hernia does contain more loops of bowel than on the prior study. Pelvis: No pelvic masses or fluid collections are seen. The uterus has been surgically removed. Peritoneum/Retroperitoneum: There are postsurgical changes of aortobifemoral artery bypass graft. There are shotty mesenteric and retroperitoneal lymph nodes but no lymphadenopathy is seen. Bones/Soft Tissues: There is severe right hip osteoarthritis with complete obliteration of the joint space. There is fluid adjacent to the humeral head and in the joint space. There are degenerative changes involving the spine. There is a left femoral distal artery bypass graft. The graft is occluded at the level of the left femoral artery. The right superficial femoral artery may also be occluded. There is a tubular structure seen within the anterior pelvic wall which may represent an abandoned femoral femoral artery bypass graft. Diomedes Madrid MD - 01/06/2022 EXAMINATION: CT OF THE ABDOMEN AND PELVIS WITH CONTRAST 01/04/2022 1:18 pm TECHNIQUE: CT of the abdomen and pelvis was performed with the administration of intravenous contrast. Multiplanar reformatted images are provided for review. Automated exposure control, iterative reconstruction, and/or weight based adjustment of the mA/kV was utilized to reduce the radiation dose to as low as reasonably achievable. COMPARISON: 06/20/2021. HISTORY: ORDERING SYSTEM PROVIDED HISTORY: Recurrent abdominal hernia without obstruction or gangrene, unspecified hernia type TECHNOLOGIST PROVIDED HISTORY: STAT Creatinine as needed:->Yes Abdominal pain/mass FINDINGS: Lower Chest: The lung bases are clear. Note is made of cardiomegaly. Organs: The liver is enlarged. The gallbladder has been surgically removed. The spleen, pancreas and adrenal glands appear unremarkable. The right kidney is atrophic. There is symmetric enhancement of the kidneys. No hydronephrosis is seen. GI/Bowel: The bowel loops are not dilated. No bowel wall thickening is seen. There is a small bowel and transverse colon containing ventral hernia. The defect measures at least 7.6 cm. The hernia does contain more loops of bowel than on the prior study. Pelvis: No pelvic masses or fluid collections are seen. The uterus has been surgically removed. Peritoneum/Retroperitoneum: There are postsurgical changes of aortobifemoral artery bypass graft. There are shotty mesenteric and retroperitoneal lymph nodes but no lymphadenopathy is seen. Bones/Soft Tissues: There is severe right hip osteoarthritis with complete obliteration of the joint space. There is fluid adjacent to the humeral head and in the joint space. There are degenerative changes involving the spine. There is a left femoral distal artery bypass graft. The graft is occluded at the level of the left femoral artery. The right superficial femoral artery may also be occluded. There is a tubular structure seen within the anterior pelvic wall which may represent an abandoned femoral femoral artery bypass graft. IMPRESSION: 1. Recurrence of a ventral hernia with more loops of small and large bowel in the hernia sac without evidence for obstruction. 2. 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 3. Severe right hip osteoarthritis with joint effusion. Septic arthritis cannot be excluded. Clinical correlation is recommended. 4. Hepatomegaly. [employer] Phone: cT ABDOMEN PELVIS W IV CONTRAST Additional Contrast? OralOrdered By: Diomedes Corona on [id number] [employer] Phone: ct ABDOMEN PELVIS W IV CONTRAST Additional Contrast? Oralon [id number] Study observation (narrative)[employer] Phone: creatinineon [id number] [Mass/Vol]0.84 mg/dL 0.5 - 0.9 mg/dLBON WhiphandGFR/1.73 sq M.predicted MDRD (S/P/Bld) [Vol rate/Area]- PINFBON WhiphandComment on above: Effective Jan 01, 2022 These results are not intended for use in patients <18 years of age. eGFR results are calculated without a race factor using the 2020 CKD-EPI equation. Careful clinical correlation is recommended, particularly when comparing to results calculated using previous equations. The CKD-EPI equation is less accurate in patients with extremes of muscle mass, extra-renal metabolism of creatine, excessive creatine ingestion, or following therapy that affects renal tubular secretion. Ringz.TVI HIP RIGHT WO CONTRASTon . Moderate to severe right hip osteoarthrosis. Moderate right hip joint effusion. Severe right hip chondromalacia. 2. Mild left hip osteoarthrosis. 3. Tearing of the right acetabular labrum. 4. No signal changes to suggest femoral head AVN. 5. Moderate distention of urinary bladder. 6. Bowel loop containing ventral hernia. [facility] CONSOLIDATEDEXAMINATION: MRI OF THE RIGHT HIP WITHOUT CONTRAST, 01/04/2022 1:48 pm TECHNIQUE: Multiplanar multisequence MRI of the right hip was performed without the administration of intravenous contrast. COMPARISON: Right hip plain radiographs from 04/10/2021 HISTORY: ORDERING SYSTEM PROVIDED HISTORY: Chronic right hip pain. TECHNOLOGIST PROVIDED HISTORY: Chronic right hip pain. 61-year-old female with chronic right hip pain. FINDINGS: BONE MARROW: Subcortical cystic changes and marrow edema in the right acetabulum and right femoral head extending into the right femoral neck. No serpiginous signal abnormality to suggest overt femoral head AVN. Visualized sacral ala, iliac wings, pubic rami, left acetabulum, and proximal left femur demonstrate normal bone marrow signal intensity. HIP JOINT: Severe right hip chondromalacia. Moderate right hip joint effusion. Right femoral head properly located in the right acetabulum without clear evidence for acute fracture, dislocation or femoral head flattening. Left femoral head properly located within the left acetabulum. Mild degenerative changes of the left hip joint. LABRUM: Tearing of the right acetabular labrum. BURSAE: No significant fluid in the bilateral iliopsoas or greater trochanteric bursa. SCIATIC NERVE: Proximal sciatic nerves demonstrate normal course, contour, and caliber on limited coronal T1 weighted imaging. MUSCLES / TENDONS: Visualized muscles/tendons appear grossly intact without evidence of tearing. INTRAPELVIC CONTENTS / SOFT TISSUES: Moderate distention of the urinary bladder. Small bowel and colonic containing ventral hernia measuring up to 12.9 cm by 4.6 cm on image 8, series 1. [facility] Orlando Brumfield MD - 01/04/2022 EXAMINATION: MRI OF THE RIGHT HIP WITHOUT CONTRAST, 01/04/2022 1:48 pm TECHNIQUE: Multiplanar multisequence MRI of the right hip was performed without the administration of intravenous contrast. COMPARISON: Right hip plain radiographs from 04/10/2021 HISTORY: ORDERING SYSTEM PROVIDED HISTORY: Chronic right hip pain. TECHNOLOGIST PROVIDED HISTORY: Chronic right hip pain. 61-year-old female with chronic right hip pain. FINDINGS: BONE MARROW: Subcortical cystic changes and marrow edema in the right acetabulum and right femoral head extending into the right femoral neck. No serpiginous signal abnormality to suggest overt femoral head AVN. Visualized sacral ala, iliac wings, pubic rami, left acetabulum, and proximal left femur demonstrate normal bone marrow signal intensity. HIP JOINT: Severe right hip chondromalacia. Moderate right hip joint effusion. Right femoral head properly located in the right acetabulum without clear evidence for acute fracture, dislocation or femoral head flattening. Left femoral head properly located within the left acetabulum. Mild degenerative changes of the left hip joint. LABRUM: Tearing of the right acetabular labrum. BURSAE: No significant fluid in the bilateral iliopsoas or greater trochanteric bursa. SCIATIC NERVE: Proximal sciatic nerves demonstrate normal course, contour, and caliber on limited coronal T1 weighted imaging. MUSCLES / TENDONS: Visualized muscles/tendons appear grossly intact without evidence of tearing. INTRAPELVIC CONTENTS / SOFT TISSUES: Moderate distention of the urinary bladder. Small bowel and colonic containing ventral hernia measuring up to 12.9 cm by 4.6 cm on image 8, series 1. IMPRESSION: 1. Moderate to severe right hip osteoarthrosis. Moderate right hip joint effusion. Severe right hip chondromalacia. 2. Mild left hip osteoarthrosis. 3. Tearing of the right acetabular labrum. 4. No signal changes to suggest femoral head AVN. 5. Moderate distention of urinary bladder. 6. Bowel loop containing ventral hernia. [facility] [employer] Phone: radiology Study observation (narrative)[facility] [employer] Phone: MRI HIP RIGHT WO CONTRASTOrdered By: Orlando Callejas on [id number] [employer] Phone: XR Spine Lumbosacral 2 or 3 Viewson [id number] Spine Lumbosacral 2 or 3 ViewsFINDINGS: Mid lumbar dextroscoliosis is present. Vertebral body heights are normal. Asymmetric disc space loss concavity of the curvature, left L2-3, diffusely L4-5 and L5-S1. 5 mm anterolisthesis L2 with respect to L1 and L3. Sclerosis involves posterior elements of the mid and distal lumbar spines; however, no spondylolysis is seen. SI joints are normal for this age. No acute fracture is identified. Soft tissues are relatively unremarkable. Prominent aorto-iliac calcifications with neighboring surgical clips. IMPRESSION: Diffuse lumbar arthritis, probable multilevel stenosis. Please see MRI report. Report reported and signed by Dwight Goel on 10/06/2021 1313NormalNorthern North Dakota Medical SpecialistAMYLASEon [id number] [Catalytic activity/Vol]510 U/LCritically [id number] [facility] HospitalComment on above:Performed By: #### LIPAriana SUSIE ####[facility] [address] [address]Dr. Praveen Medrano W MANUAL DIFFon [id number] LYMPH #NormalThe [facility] HospitalComment on above:Performed By: #### ABIGAIL #### [facility] [address] [place] [address] Dr. Praveen BloomICAL LYMPH %NormalThe [facility] HospitalComment on above: Performed By: #### ABIGAIL #### [facility] [address] [place] [address] Dr. Praveen Gu #0.3 103/ulNormal0.0-0.3The [facility] HospitalComment on above:Performed By: #### ABIGAIL #### [facility] [address] [place] [address] Dr. Praveen Gu %2 %Normal0-5The [facility] HospitalComment on above:Performed By: #### ABIGAIL #### [facility] [address] [place] [address] Dr. Praveen Linares #0.00 103/ulNormal0.00-0.10The [facility] HospitalComment on above:Performed By: #### ABIGAIL #### [facility] [address] [place] [address] Dr. Praveen Linares %0.0 %Critically low0.2-2.0The [facility] HospitalComment on above:Performed By: #### ABIGAIL #### [facility] [address] [place] [address] Dr. Praveen Perry #NormalThe [facility] on above:Performed By: #### CBCSHELBY #### [facility] [address] [place] [address] Dr. Praveen ColladoBLAST %NormalThe [facility] on above:Performed By: #### CBCSHELBY #### [facility] [address] [place] [address] Dr. Praveen ColladoCORRECTED WBCNormal4.0-11.0The [facility] on above: Performed By: #### CBCSHELBY #### [facility] [address] [place] [address] Dr. Praveen Madsen #0.28 103/ulNormal0.00-0.70The [facility] on above:Performed By: #### ABIGAIL #### [facility] [address] [place] [address] Dr. Praveen Madsen%2.0 %Normal0.9-7.0The [facility] on above: Performed By: #### ABIGAIL #### [facility] [address] [place] [address] Dr. Praveen ColladoHCT46.9 %Ordwqe15.0-48.0The [facility] on above: Performed By: #### ABIGAIL #### [facility] [address] [place] [address] Dr. Praveen ColladoHGB15.2 g/wqBufpls79.0-16.0The [facility] on above: Performed By: #### CBCSHELBY #### [facility] [address] [place] [address] Dr. Praveen Pedraza #2.90 103/ulNormal1.20-3.80The [facility] on above:Performed By: #### CBCSHELBY #### [facility] [address] [place] [address] Dr. Praveen Pedraza%21.0 %Ajifsg17.5-60.0The [facility] on above:Performed By: #### CBCSHELBY #### [facility] [address] [place] [address] Dr. Praveen TangH29.0 ktRvjdle33.7-34.0The [facility] HospitalComment on above: Performed By: #### ABIGAIL #### [facility] [address] [place] [address] Dr. Praveen TangHC32.4 g/esBfqjnb03.9-35.2The [facility] HospitalComment on above:Performed By: #### ABIGAIL #### [facility] [address] [place] [address] Dr. Praveen TangV89.5 cVWxgjxz68.0-99.0The [facility] HospitalComment on above: Performed By: #### ABIGAIL #### [facility] [address] [place] [address] Dr. Praveen BahenaOCYTE #NormalThe [facility] HospitalComment on above: Performed By: #### ABIGAIL #### [facility] [address] [place] [address] Dr. Praveen BahenaOCYTE %NormalThe [facility] HospitalComment on above: Performed By: #### ABIGAIL #### [facility] [address] [place] [address] Dr. Praveen Singleton#0.69 103/ulNormal0.30-0.80The [facility] HospitalComment on above:Performed By: #### ABIGAIL #### [facility] [address] [place] [address] Dr. Praveen Singleton%5.0 %Normal1.7-12.0The [facility] HospitalComment on above: Performed By: #### ABIGAIL #### [facility] [address] [place] [address] Dr. Praveen MelchorV9.9 fLNormal9.5-13.5The [facility] HospitalComment on above: Performed By: #### ABIGAIL #### [facility] [address] [place] [address] Dr. Praveen SerranoOCYTE #NormalThe [facility] HospitalComment on above:Performed By: #### ABIGAIL #### [facility] [address] [place] [address] Dr. Praveen HernandezELOCYTE %NormalThe [facility] HospitalComment on above:Performed By: #### ABIGAIL #### [facility] [address] [place] [address] Dr. Praveen SloanBCNormalThe [facility] HospitalComment on above:Performed By: #### ABIGAIL #### [facility] [address] [place] [address] Dr. Praveen BenitesT251 103/xsSamnpb128-768Ydq [facility] HospitalComment on above: Performed By: #### ABIGAIL #### [facility] [address] [place] [address] Dr. Praveen ColladoRBC5.24 106/ulNormal4.20-5.40The [facility] HospitalComment on above:Performed By: #### ABIGAIL #### [facility] [address] [place] [address] Dr. Praveen VargasW15.1 %Critically high11.0-15.0The [facility] HospitalComment on above:Performed By: #### ABIGAIL #### [facility] [address] [place] [address] Dr. Praveen Maharaj #9.66 103/ulCritically high1.40-6.50The [facility] Comment on above:Performed By: #### ABIGAIL #### [facility] [address] [place] [address] Dr. Praveen Maharaj %70.0 %Xxkojt05.0-75.0The [facility] HospitalComment on above: Performed By: #### ABIGAIL #### [facility] [address] [place] [address] Dr. Praveen StylesBC13.8 103/ulCritically high4.0-11.0The [facility] HospitalComment on above:Performed By: #### ABIGAIL #### [facility] [address] [place] [address] Dr. Praveen ColladoCT ABD/PELVIS WO CONon [id number] ABD/PELVIS WO CONEXAM: CT ABD/PELVIS WO CON 08/25/2021 4:21 AM EDT OH001 CLINICAL STATEMENT: UNSPECIFIED ABDOMINAL PAIN COMPARISON: No prior studies are available at the time of dictation. TECHNIQUE: Helically acquired images were obtained of the abdomen and pelvis without IV contrast. No oral contrast was administered. CT dose reduction technique was used, including Automated Exposure Control. 2-D reconstructed images are provided. FINDINGS: Marked peripancreatic edema with peripancreatic inflammation suggesting acute pancreatitis. May correlate with pancreatic enzymes and postcontrast study. Cholecystectomy. 1.6 cm right adrenal adenoma. Atrophic right kidney. There are no radiopaque renal or ureteric calculi. There is no hydronephrosis or hydroureter. The upper abdominal solid organs are unremarkable. Ventral hernia containing omental fat loops of transverse colon. No evidence for bowel incarceration. Adjacent 2.4 x 3.7 cm left periumbilical soft tissue. There is no bowel obstruction or free air. There is no ascites. There is no evidence of aortic aneurysm. Marked atherosclerotic aortoiliac, superior mesenteric and bilateral renal artery calcifications. Aortobifemoral surgical graft. There is no retroperitoneal adenopathy. There is no appendicitis or diverticulitis. Hysterectomy. There are no pelvic masses or loculated fluid collections. The lung bases are clear. Multilevel degenerative changes of the lumbosacral spinal with scoliosis There are no destructive bone lesions identified. IMPRESSION: Marked peripancreatic edema with peripancreatic inflammation suggesting acute pancreatitis. May correlate with pancreatic enzymes and postcontrast study. 1.6 cm right adrenal adenoma. Atrophic right kidney. No radiopaque renal or ureteric calculi. Ventral hernia containing omental fat loops of transverse colon. No evidence for bowel incarceration. Adjacent 2.4 x 3.7 cm left periumbilical soft tissue. Marked atherosclerotic aortoiliac, superior mesenteric and bilateral renal artery calcifications. Aortobifemoral surgical graft. FOLLOW-UP: Follow-up as clinically indicated. Electronically authenticated by: TAWANNA VICENTE Date: 2021-08-25 05:11[facility] WO CONon [id number] [facility] CONEXAMINATION: [facility] H[facility]ORY: DISORIENTATION, UNSPECIFIED COMPARISON: None. TECHNIQUE: CT Cervical spine without IV contrast. Coronal and sagittal reformations were performed. Dose reduction techniques were achieved by using automated exposure control and/or adjustment of mA and/or kV according to patient size and/or use of iterative reconstruction technique. FINDINGS: No acute fracture or subluxation is seen. The vertebral body heights are preserved. The vertebral elements are in anatomic alignment. The prevertebral soft tissues are unremarkable. There is moderate to advanced degenerative disease at C3-C4 and C4-C5. There is advanced degenerative disease at C5-C6 and moderate to advanced degenerative disc disease at C6-C7. There are multilevel degenerative changes including endplate osteophytes, degenerative facet arthropathy, and uncovertebral hypertrophy. There is mild to moderate left and right neural foraminal narrowing at C4-C5 secondary to uncovertebral hypertrophy. There is moderate to severe bilateral neural foraminal narrowing at C5-C6 secondary to uncovertebral hypertrophy. There is mild bilateral neural foraminal narrowing at C6-C7 secondary to uncovertebral hypertrophy. There is mild spinal canal stenosis at C3-C4 secondary to a posterior disc osteophyte complex. There is mild spinal canal stenosis at C4-C5 secondary to a posterior disc osteophyte complex. There is moderate spinal canal stenosis at C5-C6 secondary to a posterior disc osteophyte complex. Atherosclerotic calcifications are noted. There are emphysematous changes in the lung apices. There is a calcified right thyroid gland nodule. Please see the separately dictated CT head examination of the same date for additional findings. IMPRESSION: 1. No acute fracture or subluxation of the cervical spine is seen. Electronically authenticated by: Elizabeth FAJARDO Date: 2021-08-25 04:07[facility] WO CONon [id number] Begin Addendum #1 Important critical urgent findings discussed with Dr. Gordo Robertson at 4:16 AM 08/25/2021. Original Report EXAMINATION: CT TSPINE WO CON, CT LSPINE WO CON HISTORY: DORSALGIA, UNSPECIFIED back pain after fall COMPARISON: CT lumbar spine 11/17/2016 TECHNIQUE: CT examination of the thoracic and lumbar spine without IV contrast. Coronal and sagittal reformations were performed. Dose reduction techniques were achieved by using automated exposure control and/or adjustment of mA and/or kV according to patient size and/or use of iterative reconstruction technique. FINDINGS: Thoracic: No vertebral body height loss, acute fracture, or discrete traumatic subluxation. Lumbar: Acute distracted fracture of the left L2 vertebral body extending to the left pedicle and acute right L2 pedicle fracture. Grade 1 anterolisthesis of L2 on L3. Underlying cord injury not excluded given the extent of injury. Additional bilateral L1 pedicle fracture with extension to the left L1 posterior vertebral body. Partially visualized retroperitoneal fluid/hematoma surrounding the pancreas and inferior to the pancreas. Multilevel annular disc bulges throughout the lumbar spine with severe bony canal stenosis at L4-L5. IMPRESSION: Acute distracted fracture of the left L2 vertebral body extending to the left pedicle and acute right L2 pedicle fracture. Grade 1 subluxation of L2 on L3 vertebral body. Underlying cord injury not excluded given the extent of injury. MRI can better evaluate for underlying discogenic ligamentous and cord injury as clinically feasible. Additional bilateral L1 pedicle fracture with extension to the left L1 posterior vertebral body. Partially visualized retroperitoneal fluid/hematoma surrounding the pancreas and inferior to the pancreas. Finding raises concern for traumatic pancreatic injury. CT abdomen pelvis with contrast can better evaluate. ER staff call desk contacted at 3:58 AM 08/25/2021. However, I was told that all of the clinicians for this patient is taking care of this patient for an emergent code. I will addend the report after I reach the clinician.NormalThe [facility] CT STROKE HEAD WOon [id number] STROKE HEAD WOINDICATION: 60 years old; Female. Seizure. Right-sided postoperative paralysis. TECHNIQUE: CT Head (ax/cor/sag reformats). Ionizing radiation dose reduced via iterative reconstruction/FBP blend and body size kV/mA adjustment. Comparison: None FINDINGS: POSTOPERATIVE CHANGES: None. BRAIN PARENCHYMA: There is low-density present within the occipital lobes bilaterally as well as within the white matter of the left parietal lobe.. The presence of PRES should be considered. No hemorrhage is seen. No mass effect is seen. No midline shift or herniation is noted. VENTRICLES/EXTRA-AXIAL SPACES: Widened, consistent with atrophy. SINUSES/MASTOIDS: Visualized sinuses are clear. Mastoids and middle ears are clear. MSK: No skull fractures. OTHER: No hyperdense intraluminal thrombus is seen. Vascular calcifications are noted. IMPRESSION: 1. Low-density seen within the occipital and posterior parietal white matter bilaterally as well as within the centrum semiovale on the left. Further evaluation with MRI would be recommended. The differential diagnosis include, but is not limited to PRES (posterior reversible encephalopathy syndrome) in the appropriate clinical setting. A telephone call regarding the findings in examination was made to and acknowledged by Dr. Robertson at 2:06 AM on 08/25/2021. Electronically authenticated by: NIA GALLEGOS Date: 2021-08-25 02:12NoPremier Health Upper Valley Medical CenterCovid-19 PCR (CVDTBH)on [id number]-CoV-2 (COVID-19) RNA JANIA+probe Ql (Unsp spec)Not detectedNormalNOT DETECTEDThe [facility] Comment on above:Result Comment: When diagnostic testing is negative, the possibility of a false negative should be considered in the context of a patient's recent exposures and the presence of clinical signs and symptoms consistent with SARS-CoV-2. This test is not yet approved or cleared by the [place] FDA. When there are no FDA-approved or cleared tests available, and other criteria are met, FDA can make tests available under an emergency access mechanism called an Emergency Use Authorization (EUA). The EUA for this test is supported by the [place] of Health and Human Service's declaration that circumstances exist to justify the emergency use of in vitro diagnostics for the detection and/or diagnosis of the virus that causes COVID-19. This EUA will remain in effect for the duration of the COVID-19 declaration justifying emergency of IVDs, unless it is terminated or revoked by the FDA (after which the test may no longer be used).Performed By: #### CVDTBH #### [facility] [address] [place], [place] [address] Dr. Praveen Patel [id number] [Catalytic activity/Vol]7064.0 U/L Critically high73.0-393.0The [facility] HospitalComment on above:Performed By: #### SUSIE GOEL ####[facility] [address] [place], [place] [address]SxDr. Praveen ColladoPROF 14(COMP METB)on [id number] [Mass/Vol]3.6 g/dLNormal3.4-5.0The [facility] HospitalComment on above:Performed By: #### CMP #### [facility] [address] [place] [address] [address] Praeven ColladoAlbumin/Globulin [Mass ratio]1.1 {ratio}NormalThe [facility] HospitalComment on above:Performed By: #### CMP #### [facility] [address] [address] [address] Praveen WelchP [Catalytic activity/Vol]102 U/BRqkzww03-069Ukk [facility] HospitalComment on above:Performed By: #### CMP #### [facility] [address] [place] [address] Dr. Praveen WelchT [Catalytic activity/Vol]13 U/LCritically jbk61-81Oks [facility] HospitalComment on above:Performed By: #### CMP #### [facility] [address] [place] [address] Dr. Praveen Dumonton gap [Moles/Vol]18.9 mmol/LNormalThe [facility] Comment on above:Performed By: #### CMP #### [facility] [address] [place] [address] Dr. Praveen ColladoAST [Catalytic activity/Vol]16 U/UNkwpxr11-89Kwh [facility] HospitalComment on above:Performed By: #### CMP #### [facility] [address] [place] [address] Dr. Praveen ColladoBilirubin [Mass/Vol]1.2 mg/dLCritically high0.2-1.0The [facility] HospitalComment on above:Performed By: #### CMP #### [facility] [address] [place] [address] Dr. Praveen ColladoCalcium [Mass/Vol]9.0 mg/dLNormal8.5-10.1The [facility] Comment on above:Performed By: #### CMP #### [facility] [address] [place] [address] Dr. Praveen ColladoChloride [Moles/Vol]98 mmol/ALzivjb77-567Hrw [facility] Comment on above:Performed By: #### CMP #### [facility] [address] [place] [address] Dr. Praveen ColladoCO2 [Moles/Vol]22.6 mmol/SLkujab12.0-32.0The [facility] Comment on above:Performed By: #### CMP #### [facility] [address] [address] [address] Praveen ColladoCreatinine [Mass/Vol]1.18 mg/dLCritically high0.55-1.02The [facility] HospitalComment on above:Performed By: #### CMP #### [facility] [address] [address] [address] Praveen WestGFR-AF APMPUNIN77 mL/min/1.21r3Cbdhkdmfoh low>=60The [facility] HospitalComment on above:Performed By: #### CMP #### [facility] [address] [place] [address] Dr. Praveen WestGFR-NON AF QKUDVFGM56 mL/min/1.79d5Hpwjrvzbbo low>=60The [facility] HospitalComment on above:Performed By: #### CMP #### [facility] [address] [address] [address] Praveen ColladoGlobulin (S) [Mass/Vol]3.3 g/dLNormalThe [facility] HospitalComment on above:Performed By: #### CMP #### [facility] [address] [place] [address] Dr. Praveen ColladoGlucose [Mass/Vol]98 mg/mHRdgbxy44-654Lvl [facility] Comment on above:Performed By: #### CMP #### [facility] [address] [address] [address] Praveen ColladoPotassium [Moles/Vol]2.5 mmol/LCritically low3.5-5.1The [facility] HospitalComment on above:Performed By: #### CMP #### [facility] [address] [address] [address] Praveen ColladoProtein [Mass/Vol]6.9 g/dLNormal6.4-8.2The [facility] Comment on above:Performed By: #### CMP #### [facility] [address] [address] [address] Praveen Maganaum [Moles/Vol]136 mmol/CShjcfn107-013Msc [facility] Comment on above:Performed By: #### CMP #### [facility] [address] [address] [address] Praveen Yancey nitrogen [Mass/Vol]29.0 mg/dLCritically high7.0-18.0The [facility] HospitalComment on above:Performed By: #### CMP #### [facility] [address] [place] [address] Dr. Praveen Yancey nitrogen/Creatinine [Mass ratio]24.6 mg/mgNoPremier Health Upper Valley Medical CenterComment on above:Performed By: #### CMP #### [facility] [address] [place] [address] Dr. Praveen Martinez [id number] Coag (PPP) [Relative time]1.15 {INR} NormalThe [facility] HospitalComment on above:Performed By: #### PTT, PT #### [facility] [address] [place] [address] Dr. Praveen Luna GUIDELINESSEE BELOWWayne HealthCare Main CampusComment on above:Result Comment: DESIRED INR: 2.0 - 3.0 CONDITIONS NOT LISTED BELOW 2.5 - 3.5 FOR PROSTHETIC HEART VALVE REPLACEMENT 2.5 - 3.5 RECURRENT THROMBOSIS Performed By: #### PTT, PT #### [facility] [address] [place] [address] Dr. Praveen Rogers Coag (PPP) [Time]12.3 sCritically high9.0-11.6The [facility] HospitalComment on above:Performed By: #### PTT, PT #### [facility] [address] [place] [address] Dr. Praveen Oropeza [id number] Coag (Bld) [Time]30.9 xLjkuca67.3-36.2The [facility] HospitalComment on above:Performed By: #### PTT, PT ####[facility] [address] [place] [address]Dr. Praveen ColladoXR CHEST 1 Von [id number] CHEST 1 VEXAM: XR CHEST 1 V HISTORY: DISORIENTATION, UNSPECIFIED COMPARISON: Chest radiograph dated 05/20/2012. TECHNIQUE: One view of the chest was obtained. FINDINGS: The cardiac silhouette is enlarged though stable in size. Aortic atherosclerotic disease is seen. The lungs are clear. There is no significant pneumothorax or pleural effusion. No acute osseous abnormality is seen. IMPRESSION: 1. No acute cardiopulmonary abnormality. Electronically authenticated by: Elizabeth FAJARDO Date: 2021-08-25 02:[address] [place], [place] [address]GLUCOSE POCon [id number] [Mass/Vol]76 mg/dL70 - 99 mg/dL OSParma Community General HospitalPo Sample TypeCAPBLKettering Health Washington TownshipTest performed at address of the patient encounter.OSAtlantiCare Regional Medical Center, Mainland CampusGlucose [Mass/Vol]75 mg/dL70 - 99 mg/dLKettering Health Washington TownshipPo Sample TypeVENOOFairfield Medical CenterTest performed at address of the patient encounter.[facility] ULTRASOUND ENDOSCOPICon [id number] [facility] Gastroenterology Patient Name: Jonatan Olivarez Procedure Date: 07/19/2021 12:36 PM Date of : 1960 Admit Type: Outpatient Age: 60 Room: EUS Proc Room 01 Gender: Female Note Status: Finalized Attending MD: Pedrito Pickett MD Procedure: Upper EUS Indications: For evaluation of pancreatic adenocarcinoma. 60 year old female who was found on CT imaging to have a cystic lesion in the tail of the pancreas with possibile carcinomatosis. Here for EUS evaluation. Providers: Pedrito Pickett MD (Doctor), Marquita Henderson RN (Nurse), Bonnie Leija Supervisor Weaving (Supervisor Weaving), Leighton Tabares MD (Doctor) Referring MD: Bonnie Sahu APRN-TRUST ADMINISTRATOR (Referring MD) Medicines: Monitored Anesthesia Care, Cipro 400 mg IV Complications: No immediate complications. Procedure: Pre-Anesthesia Assessment: - Prior to the procedure, a History and Physical was performed, and patient medications and allergies were reviewed. The risks and benefits of the procedure and the sedation options and risks were discussed with the patient. All questions were answered and informed consent was obtained. Patient identification and proposed procedure were verified by the physician, the nurse and the aquatic scientist in the procedure room at 14:30 PM. Mental Status Examination: alert and oriented. Airway Examination: normal oropharyngeal airway and neck mobility. Respiratory Examination: clear to auscultation. CV Examination: normal. Prophylactic Antibiotics: The patient requires prophylactic antibiotics. Prior Anticoagulants: The patient has taken no anticoagulant or antiplatelet agents. ASA Grade Assessment: III - A patient with severe systemic disease. After reviewing the risks and benefits, the patient was deemed in satisfactory condition to undergo the procedure. The anesthesia plan was to use monitored anesthesia care (MAC). Immediately prior to administration of medications, the patient was re-assessed for adequacy to receive sedatives. The physical status of the patient was re-assessed after the procedure. - Prior to the procedure, a History and Physical was performed, and patient medications, allergies and sensitivities were reviewed. The patient's tolerance of previous anesthesia was reviewed. After obtaining informed consent, the endoscope was passed under direct vision. Throughout the procedure, the patient's blood pressure, pulse, and oxygen saturations were monitored continuously. The Endosonoscope was introduced through the mouth, and advanced to the duodenum for ultrasound examination from the stomach and duodenum. The patient tolerated the procedure well. Findings: ENDOSONOGRAPHIC FINDING: : Pancreatic parenchymal abnormalities were noted in the pancreatic body. These consisted of hyperechoic strands and hyperechoic foci. A hypoechoic lesion suggestive of a pseudocyst was identified in the pancreatic tail. It is not in obvious communication with the pancreatic duct. The lesion measured 9 mm by 12 mm in maximal cross-sectional diameter. There was a single compartment without septae. The outer wall of the lesion was thin. There was no associated mass. There was internal debris within the fluid-filled cavity. Diagnostic needle aspiration for fluid was performed. Color Doppler imaging was utilized prior to needle puncture to confirm a lack of significant vascular structures within the needle path. One pass was made with the 22 gauge needle using a transgastric approach. A stylet was used. No fluid was aspirated due to the small nature of the cyst. The pancreatic duct had a normal endosonographic appearance in the pancreatic head, uncinate process of the pancreas, genu of the pancreas, body of the pancreas and tail of the pancr (more content not included)...LAB, [facility]CB with Auto Differentialon [id number] Eos #0.30[facility] HealthAbsolute Immature Granulocyte0.03[facility] HealthAbsolute Lymph #2.48Mer[facility] HealthAbsolute [place] #0.71Mercy HealthBasophils (Bld) [#/Vol]0.14 10*3/uLMer HealthBasophils/100 WBC (Bld)1 %0 - 2 %[facility] MiamisburgEosinophils/100 WBC (Bld)3 %1 - 4 %[facility] MiamisburgHematocrit (Bld) [Volume fraction]33.0 %Low36.3 - 47.1 %[facility] MiamisburgHemoglobin.gastrointestinal spec 1 Ql (Stl)10.2 g/dLLow11.9 - 15.1 g/dLKettering Health MiamisburgImmature granulocytes/100 WBC (Bld) 0 %0[facility] HealthInterpretation and review of laboratory resultsAbnormalKettering Health MiamisburgLymphocytes/100 WBC (Bld)21 %Low24 - 43 %[facility] Medical CenterH (RBC) [Entitic mass]30.1 pg25.2 - 33.5 pgMetroHealth Main Campus Medical CenterHC (RBC) [Mass/Vol]30.9 g/dL28.4 - 34.8 g/dLMetroHealth Main Campus Medical CenterV (RBC) [Entitic vol]97.3 fL82.6 - 102.9 fLKettering Health Miamisburg Monocytes/100 WBC (Bld)6 %3 - 12 %[facility] MiamisburgNRBC Automated0.00.0 per 100 WBC [facility] HealthPlatelet distribution width (Bld) [Ratio]15.5 %High11.8 - 14.4 % Merc HealthPlatelet mean volume (Bld) [Entitic vol]10.3 fL8.1 - 13.5 fLDiley Ridge Medical Center HealthPlatelets (Bld) [#/Vol]313 10*3/uLMercy HealthRBC (Bld) [#/Vol]3.39 10*6/uLLow3.95 - 5.11 m/uLMer HealthSegmented neutrophils/100 WBC (Bld)69 % High36 - 65 %Mercy HealthSegs Absolute7.95[facility] (d) [#/Vol]11.6 10*3/uLHighAurora Health CenterCT ABDOMEN PELVIS W IV CONTRAST Additional Contrast? Oralon . There is a complex hypodense mass in the region of the tail of the pancreas. Adjacent enlarged peripancreatic lymph nodes are noted. Numerous peritoneal hypodense masses are noted suggesting peritoneal carcinomatosis in the upper abdomen. 2. Interval development of central biliary ductal dilatation and enlargement of the common bile duct. There is haziness of the CBD proximally. Choledochal lesion not excluded. 3. Ventral hernia containing bowel without strangulation. However, there is subcutaneous nodules along the ventral aspect of the hernia sac. 4. Advanced atherosclerotic vascular disease. Status post aorto bi femoral bypass which appears patent. However, the qawalangin superior femoral artery just distal to the graft appears thrombosed on the left side. RECOMMENDATIONS: 1. Advise MRI of the abdomen/MRCP with gadolinium contrast enhancement. 2. Advise bilateral mammography in this patient. The patient has no mammograms on file. The findings were sent to the Radiology Results Communication Center at 6:23 pm on 06/20/2021to be communicated to a licensed caregiver. [facility] RIS CONSOLIDATEDEXAMINATION: CT OF THE ABDOMEN AND PELVIS WITH CONTRAST 06/20/2021 5:10 pm TECHNIQUE: CT of the abdomen and pelvis was performed with the administration of intravenous contrast. Multiplanar reformatted images are provided for review. Dose modulation, iterative reconstruction, and/or weight based adjustment of the mA/kV was utilized to reduce the radiation dose to as low as reasonably achievable. COMPARISON: February 21, 2021 HISTORY: ORDERING SYSTEM PROVIDED HISTORY: Right sided abdominal pain TECHNOLOGIST PROVIDED HISTORY: STAT Creatinine as needed:->Yes Right sided abdominal pain FINDINGS: Lower Chest: Coronary artery calcification is noted. Basilar atelectasis is present. Organs: The gallbladder is surgically absent. Patient has mild central biliary ductal dilatation. There has been increasing interval dilatation of the patient's common bile duct now 16 mm within the head of the pancreas previously 7 mm. Subtle irregularity within the CBD wall is noted in the portal area with some haziness. No retained dense calculus is noted. Choledochal mass difficult to exclude. There has been interval development of a mass in the tail of the pancreas of 4 cm with internal Hounsfield numbers above that of fluid density. Septations within the hypodense mass with slight wall irregularity is noted. Findings may represent sequelae of inflammation but a cystic neoplasm is of greater concern as there are prominent lymph nodes around the tail of the pancreas up to 12 mm. The spleen, left adrenal and kidney are unremarkable. Atrophic right kidney is noted. Stable hypodense lesion in the right adrenal gland of 13 mm, with Hounsfield numbers suggesting adenoma present. No bowel obstruction or suspicious renal mass. GI/Bowel: Patient has a large ventral hernia containing bowel loops without strangulation of 6.3 cm. There has been interval development of subcutaneous nodules with cystic attenuation density along the anterior aspect of the hernia. No free fluid free air or small bowel obstruction is noted. Pelvis: No evidence of appendicitis. Appendix is visualized. Bladder is unremarkable. No free pelvic fluid, pelvic or inguinal adenopathy. However, there appears to be thrombosis of the left superior femoral artery distal to the common femoral bifurcation. Peritoneum/Retroperitoneum: Moderate calcification of the abdominal aorta upper portion is noted with moderate calcification mid abdominal aorta. Patient is status post aorto bi femoral bypass. Bypass is patent. As previously described there appears be a thrombosis of the qawalangin superior femoral artery on the left. Numerous nodules are present in the upper abdominal peritoneum suggesting peritoneal carcinomatosis. Bones/Soft Tissues: Multilevel degenerative changes. Deformity from old right-sided rib fracture with incomplete healing. Jose Jiang MD - 06/20/2021 EXAMINATION: CT OF THE ABDOMEN AND PELVIS WITH CONTRAST 06/20/2021 5:10 pm TECHNIQUE: CT of the abdomen and pelvis was performed with the administration of intravenous contrast. Multiplanar reformatted images are provided for review. Dose modulation, iterative reconstruction, and/or weight based adjustment of the mA/kV was utilized to reduce the radiation dose to as low as reasonably achievable. COMPARISON: February 21, 2021 HISTORY: ORDERING SYSTEM PROVIDED HISTORY: Right sided abdominal pain TECHNOLOGIST PROVIDED HISTORY: STAT Creatinine as needed:->Yes Right sided abdominal pain FINDINGS: Lower Chest: Coronary artery calcification is noted. Basilar atelectasis is present. Organs: The gallbladder is surgically absent. Patient has mild central biliary ductal dilatation. There has been increasing interval dilatation of the patient's common bile duct now 16 mm within the head of the pancreas previously 7 mm. Subtle irregularity within the CBD wall is noted in the portal area with some haziness. No retained dense calculus is noted. Choledochal mass difficult to exclude. There has been interval development of a mass in the tail of the pancreas of 4 cm with internal Hounsfield numbers above that of fluid density. Septations within the hypodense mass with slight wall irregularity is noted. Findings may represent sequelae of inflammation but a cystic neoplasm is of greater concern as there are prominent lymph nodes around the tail of the pancreas up to 12 mm. The spleen, left adrenal and kidney are unremarkable. Atrophic right kidney is noted. Stable hypodense lesion in the right adrenal gland of 13 mm, with Hounsfield numbers suggesting adenoma present. No bowel obstruction or suspicious renal mass. GI/Bowel: Patient has a large ventral hernia containing bowel loops without strangulation of 6.3 cm. There has been interval development of subcutaneous nodules with cystic attenuation density along the anterior aspect of the hernia. No free fluid free air or small bowel obstruction is noted. Pelvis: No evidence of appendicitis. Appendix is visualized. Bladder is unremarkable. No free pelvic fluid, pelvic or inguinal adenopathy. However, there appears to be thrombosis of the left superior femoral artery distal to the common femoral bifurcation. Peritoneum/Retroperitoneum: Moderate calcification of the abdominal aorta upper portion is noted with moderate calcification mid abdominal aorta. Patient is status post aorto bi femoral bypass. Bypass is patent. As previously described there appears be a thrombosis of the qawalangin superior femoral artery on the left. Numerous nodules are present in the upper abdominal peritoneum suggesting peritoneal carcinomatosis. Bones/Soft Tissues: Multilevel degenerative changes. Deformity from old right-sided rib fracture with incomplete healing. IMPRESSION: 1. There is a complex hypodense mass in the region of the tail of the pancreas. Adjacent enlarged peripancreatic lymph nodes are noted. Numerous peritoneal hypodense masses are noted suggesting peritoneal carcinomatosis in the upper abdomen. 2. Interval development of central biliary ductal dilatation and enlargement of the common bile duct. There is haziness of the CBD proximally. Choledochal lesion not excluded. 3. Ventral hernia containing bowel without strangulation. However, there is subcutaneous nodules along the ventral aspect of the hernia sac. 4. Advanced atherosclerotic vascular disease. Status post aorto bi femoral bypass which appears patent. However, the qawalangin superior femoral artery just distal to the graft appears thrombosed on the left side. RECOMMENDATIONS: 1. Advise MRI of the abdomen/MRCP with gadolinium contrast enhancement. 2. Advise bilateral mammography in this patient. The patient has no mammograms on file. The findings were sent to the Radiology Results Communication Center at 6:23 pm on 06/20/2021to be communicated to a licensed caregiver. [employer] Phone: radiology Study observation (narrative)[employer] Phone: cT ABDOMEN PELVIS W IV CONTRAST Additional Contrast? OralOrdered By: Jose Ruslan on [id number] Phone: Comprehensive Metabolic Panel with Bilirubinon [id number] [Mass/Vol]3.3 g/dLLow3.5 - 5.2 g/dLDiley Ridge Medical Center [employer] Albumin/Globulin [Mass ratio]1.2 {ratio}[email or web address] (Bld) [Catalytic activity/Vol]129 U/LHigh35 - 104 U/LMercy HealthALT [Catalytic activity/Vol]8 U/L5 - 33 U/LMercy HealthAnion gap [Moles/Vol]12 mmol/L9 - 17 mmol/LMercy Health AST [Catalytic activity/Vol]11 U/L<32Mercy HealthBilirubin [Mass/Vol]0.23 mg/dL Low0.3 - 1.2 mg/dLMerGoodzer HealthBilirubin, IndirectCan not be calculated0.00 - 1.00 mg/dLMercy HealthBilirubin.indirect [Mass/Vol]mg/dL<0.31 mg/dLDiley Ridge Medical Center Health Calcium [Mass/Vol]8.7 mg/dL8.6 - 10.4 mg/dLMer HealthChloride [Moles/Vol]102 mmol/L98 - 107 mmol/LMercy HealthCO2 [Moles/Vol]25 mmol/L20 - 31 mmol/LMercy HealthCreatinine [Mass/Vol]0.95 mg/dLHigh0.50 - 0.90 mg/dLMer HealthFree PSA/Total PSA [Mass fraction]6.0 g/dLLow6.4 - 8.3 g/dLMercy HealthGFR >60>60 mL/minMercy HealthGFR Non- Ledlbdst47 mL/minLow>60[facility] MiamisburgGlucose [Mass/Vol]119 mg/fQRits09 - 99 mg/dLKettering Health MiamisburgInterpretation and review of laboratory resultsAbnormalKettering Health MiamisburgPotassium [Moles/Vol]3.0 mmol/L Low3.7 - 5.3 mmol/LMercy HealthSodium [Moles/Vol]139 mmol/L135 - 144 mmol/LMercy HealthUrea nitrogen (BldV) [Mass/Vol]22 mg/dL8 - 23 mg/dLAurora Health CenterLaboratory - Chemistry and Chemistry - challengeon [id number]/1.73 sq M.predicted MDRD (S/P/Bld) [Vol rate/Area]City Hospitalment on above:Average GFR for 60-69 years old: 85 mL/min/1.73sq m Chronic Kidney Disease: <60 mL/min/1.73sq m Kidney failure: <15 mL/min/1.73sq m eGFR calculated using average adult body mass. Additional eGFR calculator available at: http://www.SynapDx/multiple_crcl_2012.htm Stage 1: Some kidney damage normal GFR Stage 2: Mild kidney damage GFR 60-89 Stage 3: Moderate kidney damage GFR 30-59 Stage 4: Severe kidney damage GFR 15-29 Stage 5: Severe kidney damage GFR <15 ESRD - chronic treatment by dialysis or transplant XR HIP RIGHT (2-3 VIEWS)on . Severe end-stage right hip osteoarthrosis. Diffuse osteopenia. 2. No acute fracture or dislocation. [facility] CONSOLIDATEDEXAMINATION: TWO XRAY VIEWS OF THE RIGHT HIP 04/10/2021 10:56 am COMPARISON: 02/21/2021 HISTORY: ORDERING SYSTEM PROVIDED HISTORY: Chronic right hip pain TECHNOLOGIST PROVIDED HISTORY: acute right hip pain 60-year-old female with acute on chronic right hip pain FINDINGS: Atherosclerotic calcification of the vasculature. Surgical clips project over the right groin. Sclerosis and subcortical cystic changes about the right hip joint space which is effaced. Moderate stool burden. Diffuse osteopenia. No acute fracture or dislocation. Stable soft tissue calcifications overlying the proximal right thigh. [facility] Orlando Brumfield MD - 04/10/2021 EXAMINATION: TWO XRAY VIEWS OF THE RIGHT HIP 04/10/2021 10:56 am COMPARISON: 02/21/2021 HISTORY: ORDERING SYSTEM PROVIDED HISTORY: Chronic right hip pain TECHNOLOGIST PROVIDED HISTORY: acute right hip pain 60-year-old female with acute on chronic right hip pain FINDINGS: Atherosclerotic calcification of the vasculature. Surgical clips project over the right groin. Sclerosis and subcortical cystic changes about the right hip joint space which is effaced. Moderate stool burden. Diffuse osteopenia. No acute fracture or dislocation. Stable soft tissue calcifications overlying the proximal right thigh. IMPRESSION: 1. Severe end-stage right hip osteoarthrosis. Diffuse osteopenia. 2. No acute fracture or dislocation. Rosum Phone: radiology Study observation (narrative)Rosum Phone: XR HIP RIGHT (2-3 VIEWS)Ordered By: Orlando Callejas on [id number] Phone: Basic Metabolic Panel w/ Reflex to MGon 03-19-2021 Anion gap [Moles/Vol]13 mmol/L9 - 17 mmol/LMercy HealthCalcium [Mass/Vol]9.6 mg/dL8.6 - 10.4 mg/dLDiley Ridge Medical Center HealthChloride [Moles/Vol]95 mmol/LLow98 - 107 mmol/L [facility] Eso TechnologiesCO2 [Moles/Vol]32 mmol/LHigh20 - 31 mmol/LMercy HealthCreatinine [Mass/Vol]1.2 mg/dLHigh0.50 - 0.90 mg/dLDiley Ridge Medical Center HealthGFR Clneglwh31 mL/minLow>60Mer HealthGFR Non- Fbsnqwgz23 mL/minLow>60[facility] Health Glucose [Mass/Vol]98 mg/dL70 - 99 mg/dLDiley Ridge [facility] Center HealthInterpretation and review of laboratory resultsAbnormalDiley Ridge [facility] Center HealthPotassium [Moles/Vol]4.3 mmol/L3.7 - 5.3 mmol/LMercy HealthSodium [Moles/Vol]140 mmol/L135 - 144 mmol/LMercy HealthUrea nitrogen (BldV) [Mass/Vol]17 mg/dL8 - 23 mg/dLDiley Ridge Medical Center HealthUrea nitrogen/Creatinine (Bld) [Mass ratio]14[facility] CenterCBC Auto Differentialon [id number] Eos #0.31MerQuincy Valley Medical CenterAbsolute Immature Granulocyte<0.03Mer HealthAbsolute Lymph #0.94LowMer HealthAbsolute [place] # 0.39Mer HealthBasophils (Bld) [#/Vol]0.04 10*3/uLMer HealthBasophils/100 WBC (Bld)1 %0 - 2 %[facility] MiamisburgDifferential TypeNOT REPORTEDKettering Health Miamisburg Eosinophils/100 WBC (Bld)6 %High1 - 4 %[facility] MiamisburgHematocrit (Bld) [Volume fraction]42.9 %36.3 - 47.1 %[facility] MiamisburgHemoglobin.gastrointestinal spec 1 Ql (Stl)13.5 g/dL11.9 - 15.1 g/dLKettering Health MiamisburgImmature granulocytes/100 WBC (Bld)0 % 0[facility] MiamisburgInterpretation and review of laboratory resultsAbnormalK[facility]tering Health Miamisburg Lymphocytes/100 WBC (Bld)19 %Low24 - 43 %[facility] CenterH (RBC) [Entitic mass] 28.4 pg25.2 - 33.5 pgMetroHealth Main Campus Medical CenterHC (RBC) [Mass/Vol]31.5 g/dL28.4 - 34.8 g/dL [facility] CenterV (RBC) [Entitic vol]90.3 fL82.6 - 102.9 fLKettering Health Miamisburg Monocytes/100 WBC (Bld)8 %3 - 12 %[facility] MiamisburgNRBC Automated0.00.0 per 100 WBC [facility] HealthPlatelet distribution width (Bld) [Ratio]15.2 %High11.8 - 14.4 % [facility] HealthPlatelet EstimateNOT REPORTEDDiley Ridge Medical Center HealthPlatelet mean volume (Bld) [Entitic vol]9.0 fL8.1 - 13.5 fLDiley Ridge Medical Center HealthPlatelets (Bld) [#/Vol]254 10*3/uL [facility] MiamisburgRBC (Bld) [#/Vol]4.75 10*6/uL3.95 - 5.11 m/uLKettering Health MiamisburgRBC (Bld) [#/Vol]NOT REPORTEDKettering Health MiamisburgSegmented neutrophils/100 WBC (Bld)66 %High36 - 65 %[facility] MiamisburgSegs Absolute3.20[facility] MiamisburgWBC (Bld) [#/Vol]4.9 10*3/uLKettering Health MiamisburgWBC (Bld) [#/Vol]NOT REPORTEDAurora Health CenterLaboratory - Chemistry and Chemistry - challengeon [id number]/1.73 sq M.predicted MDRD (S/P/Bld) [Vol rate/Area][facility] MiamisburgComment on above:Average GFR for 60-69 years old: 85 mL/min/1.73sq m Chronic Kidney Disease: <60 mL/min/1.73sq m Kidney failure: <15 mL/min/1.73sq m eGFR calculated using average adult body mass. Additional eGFR calculator available at: http://www.SynapDx/multiple_crcl_2011.htm Stage 1: Some kidney damage normal GFR Stage 2: Mild kidney damage GFR 60-89 Stage 3: Moderate kidney damage GFR 30-59 Stage 4: Severe kidney damage GFR 15-29 Stage 5: Severe kidney damage GFR <15 ESRD - chronic treatment by dialysis or transplant Basic Metabolic Panel w/ Reflex to MGon [id number] gap [Moles/Vol]12 mmol/L 9 - 17 mmol/LMercy HealthCalcium [Mass/Vol]9.4 mg/dL8.6 - 10.4 mg/dLKettering Health Miamisburg Chloride [Moles/Vol]102 mmol/L98 - 107 mmol/LMercy HealthCO2 [Moles/Vol]25 mmol/L20 - 31 mmol/LMercy HealthCreatinine [Mass/Vol]1 mg/dLHigh0.50 - 0.90 mg/dLKettering Health MiamisburgGFR >60>60 mL/minDiley Ridge Medical Center HealthGFR Non- Tlowfzgz51 mL/minLow>60[facility] MiamisburgGlucose [Mass/Vol]121 mg/zFIwwl87 - 99 mg/dL [facility] MiamisburgInterpretation and review of laboratory resultsAbnormalK[facility]tering Health Miamisburg Potassium [Moles/Vol]3.7 mmol/L3.7 - 5.3 mmol/LMercy HealthSodium [Moles/Vol]139 mmol/L135 - 144 mmol/LMercy HealthUrea nitrogen (BldV) [Mass/Vol]13 mg/dL8 - 23 mg/dLKettering Health MiamisburgUrea nitrogen/Creatinine (Bld) [Mass ratio]13[facility] CenterCB Auto Differentialon [id number] Eos #0.36MerQuincy Valley Medical CenterAbsolute Immature Granulocyte<0.03[facility] MiamisburgAbsolute Lymph #1.05LowMer HealthAbsolute [place] #0.48Mer HealthBasophils (Bld) [#/Vol]0.05 10*3/uLKettering Health Miamisburg Basophils/100 WBC (Bld)1 %0 - 2 %[facility] MiamisburgDifferential TypeNOT REPORTEDMerQuincy Valley Medical CenterEosinophils/100 WBC (Bld)7 %High1 - 4 %[facility] MiamisburgHematocrit (Bld) [Volume fraction]40.5 %36.3 - 47.1 %[facility] MiamisburgHemoglobin.gastrointestinal spec 1 Ql (Stl)13.0 g/dL11.9 - 15.1 g/dLKettering Health MiamisburgImmature granulocytes/100 WBC (Bld)0 %0[facility] MiamisburgInterpretation and review of laboratory resultsAbnormal [facility] MiamisburgLymphocytes/100 WBC (Bld)19 %Low24 - 43 %[facility] CenterH (RBC) [Entitic mass]28.8 pg25.2 - 33.5 pgMetroHealth Main Campus Medical CenterHC (RBC) [Mass/Vol]32.1 g/dL 28.4 - 34.8 g/dLMetroHealth Main Campus Medical CenterV (RBC) [Entitic vol]89.6 fL82.6 - 102.9 fLKettering Health MiamisburgMonocytes/100 WBC (Bld)9 %3 - 12 %[facility] MiamisburgNRBC Automated0.00.0 per 100 WBCDiley Ridge Medical Center HealthPlatelet distribution width (Bld) [Ratio]15.8 %High11.8 - 14.4 % [facility] HealthPlatelet EstimateNOT REPORTEDDiley Ridge Medical Center HealthPlatelet mean volume (Bld) [Entitic vol]9.0 fL8.1 - 13.5 fLDiley Ridge Medical Center HealthPlatelets (Bld) [#/Vol]219 10*3/uL [facility] MiamisburgRBC (Bld) [#/Vol]4.52 10*6/uL3.95 - 5.11 m/uLKettering Health MiamisburgRBC (Bld) [#/Vol]NOT REPORTEDKettering Health MiamisburgSegmented neutrophils/100 WBC (Bld)64 %36 - 65 % [facility] MiamisburgSe Absolute3.51MerQuincy Valley Medical CenterWBC (Bld) [#/Vol]5.5 10*3/uLKettering Health MiamisburgWBC (Bld) [#/Vol]NOT REPORTEDAurora Health CenterLaboratory - Chemistry and Chemistry - challengeon [id number]/1.73 sq M.predicted MDRD (S/P/Bld) [Vol rate/Area][facility] on above:Average GFR for 60-69 years old: 85 mL/min/1.73sq m Chronic Kidney Disease: <60 mL/min/1.73sq m Kidney failure: <15 mL/min/1.73sq m eGFR calculated using average adult body mass. Additional eGFR calculator available at: http://www.SynapDx/multiple_crcl_2012.htm Stage 1: Some kidney damage normal GFR Stage 2: Mild kidney damage GFR 60-89 Stage 3: Moderate kidney damage GFR 30-59 Stage 4: Severe kidney damage GFR 15-29 Stage 5: Severe kidney damage GFR <15 ESRD - chronic treatment by dialysis or transplant XR CHEST (2 VW)on [id number] significant change in vascular congestion with findings of interstitial edema and trace pleural effusions. [facility] CONSOLIDATEDEXAMINATION: TWO XRAY VIEWS OF THE CHEST 03/18/2021 8:19 am COMPARISON: Chest CT and radiograph 03/17/2021 HISTORY: ORDERING SYSTEM PROVIDED HISTORY: hypoxia TECHNOLOGIST PROVIDED HISTORY: hypoxia FINDINGS: Bilateral perihilar opacities, interstitial opacities and mild septal thickening. Blunting of the costophrenic angles. No pneumothorax identified. No significant effusion. [facility] Diego Gamble MD - 03/18/2021 EXAMINATION: TWO XRAY VIEWS OF THE CHEST 03/18/2021 8:19 am COMPARISON: Chest CT and radiograph 03/17/2021 HISTORY: ORDERING SYSTEM PROVIDED HISTORY: hypoxia TECHNOLOGIST PROVIDED HISTORY: hypoxia FINDINGS: Bilateral perihilar opacities, interstitial opacities and mild septal thickening. Blunting of the costophrenic angles. No pneumothorax identified. No significant effusion. IMPRESSION: No significant change in vascular congestion with findings of interstitial edema and trace pleural effusions. [facility] Phone: radiology Study observation (narrative)Rosum Phone: XR CHEST (2 VW)Ordered By: Diego Alcantara on 03-18-2021 Rosum Phone: Basic Metabolic Panelon [id number] gap [Moles/Vol]12 mmol/L9 - 17 mmol/LMercy HealthCalcium [Mass/Vol]9.2 mg/dL8.6 - 10.4 mg/dLDiley Ridge Medical Center HealthChloride [Moles/Vol]106 mmol/L98 - 107 mmol/LMercy Health CO2 [Moles/Vol]22 mmol/L20 - 31 mmol/LMercy HealthCreatinine [Mass/Vol]1.07 mg/dLHigh0.50 - 0.90 mg/dLMedina Hospitalcy HealthGFR >60>60 mL/minMercy HealthGFR Non- Dzbsnmeu48 mL/minLow>60Mer HealthGlucose [Mass/Vol]92 mg/dL70 - 99 mg/dLDiley Ridge Medical Center HealthPotassium [Moles/Vol]4.0 mmol/L3.7 - 5.3 mmol/L [facility] Eso TechnologiesSodium [Moles/Vol]140 mmol/L135 - 144 mmol/LMercy HealthUrea nitrogen (BldV) [Mass/Vol]14 mg/dL8 - 23 mg/dLDiley Ridge Medical Center HealthUrea nitrogen/Creatinine (Bld) [Mass ratio]13MerQuincy Valley Medical CenterBrain Natriuretic Peptideon [id number] InterpretationNOT REPORTEDMerQuincy Valley Medical CenterNatriuretic peptide B (Bld) [Mass/Vol]6864 pg/mLHigh<300MerQuincy Valley Medical CenterComment on above: An age-independent cutoff point of 300 pg/ml has a 98% negative predictive value excluding acute heart failure. C-Reactive Proteinon [id number] [Mass/Vol]159.4 mg/LHigh0.0 - 5.0 mg/LMercy HealthInterpretation and review of laboratory resultsAbnormalMerSelect Medical Specialty Hospital - Southeast OhioCBC Auto Differentialon [id number] Eos #0.38Mercy HealthAbsolute Immature Granulocyte<0.03Mercy HealthAbsolute Lymph #1.29Mercy HealthAbsolute [place] #0.48Mercy HealthBasophils (Bld) [#/Vol]0.05 10*3/uLMer Health Basophils/100 WBC (Bld)1 %0 - 2 %[facility] MiamisburgDifferential TypeNOT REPORTEDMer HealthEosinophils/100 WBC (Bld)6 %High1 - 4 %[facility] MiamisburgHematocrit (Bld) [Volume fraction]33.9 %Low36.3 - 47.1 %[facility] MiamisburgHemoglobin.gastrointestinal spec 1 Ql (Stl)11.0 g/dLLow11.9 - 15.1 g/dLKettering Health MiamisburgImmature granulocytes/100 WBC (Bld)0 %0[facility] HealthInterpretation and review of laboratory resultsAbnormal [facility] MiamisburgLymphocytes/100 WBC (Bld)19 %Low24 - 43 %[facility] CenterH (RBC) [Entitic mass]29.0 pg25.2 - 33.5 pgMetroHealth Main Campus Medical CenterHC (RBC) [Mass/Vol]32.4 g/dL 28.4 - 34.8 g/dLMetroHealth Main Campus Medical CenterV (RBC) [Entitic vol]89.4 fL82.6 - 102.9 fLDiley Ridge Medical Center HealthMonocytes/100 WBC (Bld)7 %3 - 12 %[facility] MiamisburgNRBC Automated0.00.0 per 100 WBCDiley Ridge Medical Center HealthPlatelet distribution width (Bld) [Ratio]16.2 %High11.8 - 14.4 % [facility] HealthPlatelet EstimateNOT REPORTEDDiley Ridge Medical Center HealthPlatelet mean volume (Bld) [Entitic vol]10.1 fL8.1 - 13.5 fLMer HealthPlatelets (Bld) [#/Vol]203 10*3/uL Merc HealthRBC (Bld) [#/Vol]3.79 10*6/uLLow3.95 - 5.11 m/uLMer HealthRBC (Bld) [#/Vol]NOT REPORTEDMer HealthSegmented neutrophils/100 WBC (Bld)67 %High 36 - 65 %[facility] MiamisburgSegs Absolute4.51Mer HealthWBC (Bld) [#/Vol]6.7 10*3/uL Merc HealthWBC (Bld) [#/Vol]NOT REPORTEDMer HealthMercy HealthAbsolute Eos # 0.31Mer HealthAbsolute Immature Granulocyte<0.03Mer HealthAbsolute Lymph # 1.26Mer HealthAbsolute [place] #0.46Mer HealthBasophils (Bld) [#/Vol]0.05 10*3/uLMer HealthBasophils/100 WBC (Bld)1 %0 - 2 %[facility] MiamisburgDifferential TypeNOT REPORTEDKettering Health MiamisburgEosinophils/100 WBC (Bld)5 %High1 - 4 %[facility] Hematocrit (Bld) [Volume fraction]34.3 %Low36.3 - 47.1 %[facility] Hemoglobin.gastrointestinal spec 1 Ql (Stl)10.8 g/dLLow11.9 - 15.1 g/dLKettering Health MiamisburgImmature granulocytes/100 WBC (Bld)0 %0[facility] MiamisburgInterpretation and review of laboratory resultsAbnormalKettering Health MiamisburgLymphocytes/100 WBC (Bld)20 %Low 24 - 43 %[facility] MiamisburgMCH (RBC) [Entitic mass]28.6 pg25.2 - 33.5 pgKettering Health Miamisburg MCHC (RBC) [Mass/Vol]31.5 g/dL28.4 - 34.8 g/dLKettering Health MiamisburgMCV (RBC) [Entitic vol]91.0 fL82.6 - 102.9 fLDiley Ridge Medical Center HealthMonocytes/100 WBC (Bld)7 %3 - 12 %[facility] MiamisburgNRBC Automated0.00.0 per 100 WBCDiley Ridge Medical Center HealthPlatelet distribution width (Bld) [Ratio]16.0 %High11.8 - 14.4 %[facility] HealthPlatelet EstimateNOT REPORTED [facility] HealthPlatelet mean volume (Bld) [Entitic vol]9.1 fL8.1 - 13.5 fLDiley Ridge Medical Center HealthPlatelets (Bld) [#/Vol]195 10*3/uLMer HealthRBC (Bld) [#/Vol]3.77 10*6/uLLow3.95 - 5.11 m/uLMer HealthRBC (Bld) [#/Vol]NOT REPORTEDKettering Health Miamisburg Segmented neutrophils/100 WBC (Bld)67 %High36 - 65 %[facility] MiamisburgSe Absolute 4.26K[facility] MiamisburgWBC (Bld) [#/Vol]6.4 10*3/uLKettering Health MiamisburgWBC (Bld) [#/Vol]NOT REPORTEDAurora Health CenterCOVID-19, Rapidon [id number]-CoV-2 (COVID- 19) RNA JANIA+probe Ql (Unsp spec)Not detectedNot DetectedKettering Health MiamisburgComment on above: Rapid NAAT: The specimen is NEGATIVE for SARS-CoV-2, the novel coronavirus associated with COVID-19. The ID NOW COVID-19 assay is designed to detect the virus that causes COVID-19 in patients with signs and symptoms of infection who are suspected of COVID-19. An individual without symptoms of COVID-19 and who is not shedding SARS-CoV-2 virus would expect to have a negative (not detected) result in this assay. Negative results should be treated as presumptive and, if inconsistent with clinical signs and symptoms or necessary for patient management, should be tested with an alternative molecular assay. Negative results do not preclude SARS-CoV-2 infection and should not be used as the sole basis for patient management decisions. Fact sheet for Healthcare Providers: https://www.fda.gov/media/650252/download Fact sheet for Patients: https://www.fda.gov/media/277723/download Methodology: Isothermal Nucleic Acid Amplification Specimen Description.NASOPHARYNGEAL SWABAurora Health CenterCT CHEST PULMONARY EMBOLISM W CONTRASTon [id number] evidence of pulmonary embolism. Pulmonary artery hypertension, moderate-severe and increased slightly as compared to the previous study. Relatively diffuse pulmonary abnormalities, similar to the previous study but now with small pleural effusions and greater basilar atelectasis, as above; differential again includes infectious, inflammatory and neoplastic etiologies. Pulmonary edema, interstitial and other pneumonias, alveolar proteinosis, and less commonly drug induced pneumonitis, pulmonary hemorrhage, UIP, and other causes should be considered. Mild unchanged adenopathy. Additional unchanged findings, as above. RECOMMENDATIONS: Unavailable [facility] RIS CONSOLIDATEDEXAMINATION: CTA OF THE CHEST 03/17/2021 4:21 pm TECHNIQUE: CTA of the chest was performed after the administration of intravenous contrast. Multiplanar reformatted images are provided for review. MIP images are provided for review. Dose modulation, iterative reconstruction, and/or weight based adjustment of the mA/kV was utilized to reduce the radiation dose to as low as reasonably achievable. COMPARISON: CT scan of the chest for PE from 10/06/2019 HISTORY: ORDERING SYSTEM PROVIDED HISTORY: shortness of breath TECHNOLOGIST PROVIDED HISTORY: shortness of breath History of asthma, diabetes, COPD, and tobacco abuse, and unstable angina. FINDINGS: Pulmonary Arteries: Pulmonary arteries are adequately opacified for evaluation. No evidence of intraluminal filling defect to suggest pulmonary embolism. Main pulmonary artery is dilated to 40 mm (versus 39 mm previously); right and left pulmonary arteries are also dilated. Mediastinum: Unchanged mild mediastinal and hilar lymphadenopathy; no bulky lymphadenopathy. The heart and pericardium demonstrate no acute abnormality. There is no acute abnormality of the thoracic aorta; moderate-severe calcific ASVD again demonstrated arch, major vessels, and descending thoracic aorta. No aneurysm or dissection.. Lungs/pleura: Similar pulmonary abnormalities to those seen previously, including subtle crazy paving (best seen upper lung zones and greater right apex) with interlobular septal thickening, and hazy ground-glass opacities. Additional scattered more peripheral interlobular septal thickening, hazy ground-glass opacities and, toward the bases, discoid and subsegmental atelectasis. No traction bronchiectasis or honeycombing. Trace right and small left pleural effusions. No focal consolidation or pulmonary edema. No evidence of pleural effusion or pneumothorax. Upper Abdomen: Limited images of the upper abdomen show no acute abnormality. Small hiatus hernia. Upper stent graft abdominal aorta.. Soft Tissues/Bones: No acute bone or soft tissue abnormality. [facility] Diego Murillo MD - 03/17/2021 EXAMINATION: CTA OF THE CHEST 03/17/2021 4:21 pm TECHNIQUE: CTA of the chest was performed after the administration of intravenous contrast. Multiplanar reformatted images are provided for review. MIP images are provided for review. Dose modulation, iterative reconstruction, and/or weight based adjustment of the mA/kV was utilized to reduce the radiation dose to as low as reasonably achievable. COMPARISON: CT scan of the chest for PE from 10/06/2019 HISTORY: ORDERING SYSTEM PROVIDED HISTORY: shortness of breath TECHNOLOGIST PROVIDED HISTORY: shortness of breath History of asthma, diabetes, COPD, and tobacco abuse, and unstable angina. FINDINGS: Pulmonary Arteries: Pulmonary arteries are adequately opacified for evaluation. No evidence of intraluminal filling defect to suggest pulmonary embolism. Main pulmonary artery is dilated to 40 mm (versus 39 mm previously); right and left pulmonary arteries are also dilated. Mediastinum: Unchanged mild mediastinal and hilar lymphadenopathy; no bulky lymphadenopathy. The heart and pericardium demonstrate no acute abnormality. There is no acute abnormality of the thoracic aorta; moderate-severe calcific ASVD again demonstrated arch, major vessels, and descending thoracic aorta. No aneurysm or dissection.. Lungs/pleura: Similar pulmonary abnormalities to those seen previously, including subtle crazy paving (best seen upper lung zones and greater right apex) with interlobular septal thickening, and hazy ground-glass opacities. Additional scattered more peripheral interlobular septal thickening, hazy ground-glass opacities and, toward the bases, discoid and subsegmental atelectasis. No traction bronchiectasis or honeycombing. Trace right and small left pleural effusions. No focal consolidation or pulmonary edema. No evidence of pleural effusion or pneumothorax. Upper Abdomen: Limited images of the upper abdomen show no acute abnormality. Small hiatus hernia. Upper stent graft abdominal aorta.. Soft Tissues/Bones: No acute bone or soft tissue abnormality. IMPRESSION: No evidence of pulmonary embolism. Pulmonary artery hypertension, moderate-severe and increased slightly as compared to the previous study. Relatively diffuse pulmonary abnormalities, similar to the previous study but now with small pleural effusions and greater basilar atelectasis, as above; differential again includes infectious, inflammatory and neoplastic etiologies. Pulmonary edema, interstitial and other pneumonias, alveolar proteinosis, and less commonly drug induced pneumonitis, pulmonary hemorrhage, UIP, and other causes should be considered. Mild unchanged adenopathy. Additional unchanged findings, as above. RECOMMENDATIONS: Unavailable Ros[facility] Phone: radiology Study observation (narrative)Rosum Phone: cT CHEST PULMONARY EMBOLISM W CONTRASTOrdered By: Diego Mcclure on [id number] Phone: [phone]-Ylrcy, Quantitativeon [id number]-Dimer, Quant2.31 [facility] [email or web address] on above: When combined with a low clinical probability, a D dimer value of <0.50 mg/L FEU is considered negative for DVT and PE (negative predictive value of 98%, sensitivity of 97%). If this test is not being used to help rule out DVT and PE, then the following reference range should be utilized: 0.00 - 0.59 mg/L FEU. The D-Dimer assay is intended for use as an aid in the diagnosis of venous thromboembolism (DVT and PE) and the results should be interpreted in conjunction with the patient's medical history, clinical presentation, and other findings. Elevated levels of D-dimer activity can be seen in any state of coagulation activation and is not recommended in patients with therapeutic dose anticoagulant therapy for >24 hours, fibrinolytic therapy within the previous 7 days, trauma or surgery within the previous 4 weeks, disseminated malignancies, aortic aneurysm, sepsis, severe infections, pneumonia, severe skin infections, liver cirrhosis, advanced age, coronary disease, diabetes, and . A very low percentage of patients with DVT may yield D-dimer results below the cutoff of 0.5 mg/L FEU. This is known to be more prevalent in patients with distal DVT. Interpretation and review of laboratory resultsAbnounc health blue ridge - valdeseRedFlag Software EKG 12 Leadon 26-14-1716Tztpnv Gdtv24UPMIysqrRubicon Media Phone: p Nfuc37avfqybyYxhoyForte Netservices Phone: p-R [id number] [employer]pulse Phone: Q-T [id number] [employer]pulse Phone: QRS Ojlvivki36 bluepulse Phone: QTc Calculation (Bazett)403 [employer]pulse Phone: R Wrqk73xvpkniaMyibvForte Netservices Phone: T Dzel40mpzyeleOyqepForte Netservices Phone: Ventricular Xyvn29RTUQljlcRubicon Media Phone: Normal sinus rhythm Possible Left atrial enlargement Incomplete right bundle branch block Borderline ECG When compared with ECG of 21-FEB-2021 19:10, No significant change was found Confirmed by Josef Brooks MD ([id number]) on 03/17/2021 9:28:37 PMG[facility] RADIOLOGY Josef Brooks MD - 03/17/2021 Normal sinus rhythm Possible Left atrial enlargement Incomplete right bundle branch block Borderline ECG When compared with ECG of 21-FEB-2021 19:10, No significant change was found Confirmed by Josef Brooks MD ([id number]) on 03/17/2021 9:28:37 [facility] Work Phone: [facility] [employer] Work Phone: laboratory - Chemistry and Chemistry - challengeon [id number]/1.73 sq M.predicted MDRD (S/P/Bld) [Vol rate/Area][facility] [employer] Comment on above:Average GFR for 60-69 years old: 85 mL/min/1.73sq m Chronic Kidney Disease: <60 mL/min/1.73sq m Kidney failure: <15 mL/min/1.73sq m eGFR calculated using average adult body mass. Additional eGFR calculator available at: http://www.SynapDx/multiple_crcl_2012.htm Stage 1: Some kidney damage normal GFR Stage 2: Mild kidney damage GFR 60-89 Stage 3: Moderate kidney damage GFR 30-59 Stage 4: Severe kidney damage GFR 15-29 Stage 5: Severe kidney damage GFR <15 ESRD - chronic treatment by dialysis or transplant Lactate, Sepsison [id number] Acid, Sepsis0.6 mmol/L0.5 - 1.9 mmol/LMercy HealthLactic Acid, Sepsis, Whole BloodNOT REPORTED0.5 - 1.9 mmol/LMercy Health [facility] HealthMicroscopic Urinalysison 03-17-2021-[facility] HealthAmorphous, UANOT REPORTEDNoneMercy HealthBacteria, UA3+AbnormalNoneMercy HealthCasts UANOT REPORTED/LPFMercy HealthCrystals, UANOT REPORTEDNone /HPFMercy HealthEpithelial Cells UA2 TO 5Mercy HealthInterpretation and review of laboratory results AbnormalMercy HealthMucus, UANOT REPORTEDNoneMercy HealthOther Observations UA NOT REPORTEDNOT REQ.Mercy HealthRBC, UA0 TO 2Mercy HealthRenal Epithelial, UANOT REPORTED0 /HPFMercy HealthTrichomonas, UANOT REPORTEDNoneMercy HealthWBC, UA0 TO 2Mercy HealthYeast, UANOT REPORTEDNoneMercy HealthMercy HealthNo Panel Informationon [id number] and review of laboratory resultsAbnormal Mercy HealthMercy HealthProtime-INRon [id number] Coag (Bld) [Relative time] 1.0 {INR}Mercy HealthComment on above: Non-therapeutic Range: INR = 0.9-1.2 Therapeutic Range: Moderate Anticoagulant Intensity: INR = 2.0-3.0 High Anticoagulant Intensity: INR = 2.5-3.5 PT Coag (PPP) [Time]13 sMercy HealthMercy HealthSedimentation Rateon 03-17-2021 Interpretation and review of laboratory resultsAbnormalMercy HealthSed Rate27 mm High0 - 20 mmMercy HealthMercy HealthTroponinon [id number] InterpNOT REPORTEDMercy HealthTroponin TNOT REPORTED<0.03 ng/mLMercy HealthTroponin, High Sensitivity9 ng/L0 - 14 ng/LMercy HealthComment on above: High Sensitivity Troponin values cannot be compared with other Troponin methodologies. Patients with high levels of Biotin oral intake (i.e >5mg/day) may have falsely decreased Troponin levels. Samples collected within 8 hours of biotin intake may require additional information for diagnosis. Mercy HealthUrinalysis Reflex to Cultureon [id number] UrineNegative NEGATIVEMercy HealthColor, UAYellowYellowMercy HealthGlucose, UrNegativeNEGATIVE Mercy HealthInterpretation and review of laboratory resultsAbnormalMercy Health Ketones Ql (U)NegativeNEGATIVEMercy HealthLeukocyte esterase Test strip Ql (U) NegativeNEGATIVEMercy HealthNitrite, UrinePositiveAbnormalNEGATIVEMercy Health pH, UA6.5Mercy HealthProtein, UANegativeNEGATIVEMercy HealthSpecific [place], UA 1.020Mercy HealthTurbidity UAClearClearMercy HealthUrinalysis CommentsNOT REPORTEDMercy HealthUrine HgbNegativeNEGATIVEMercy HealthUrobilinogen, Urine NormalNormalMercy HealthMercy HealthVL DUP LOWER EXTREMITY VENOUS BILATERALon [id number] Mercer MD - 03/17/2021 [facility] Vascular Lower Extremities DVT Study Procedure Patient Name SHER Date of Study 03/17/2021 JONATAN Phillips Date of 1960 Gender Female Age 60 year(s) Race Room Number 01A Corporate ID # [id number] Patient MR # [id number] Corporate Statistical Financial Analyst Corrine Peterson Interpreting Physician Jose Mercer MD Referring Nurse Fredy Billingsley, Referring Physician Practitioner INSPECTOR P[employer]-TRUST ADMINISTRATOR Procedure Type of Study: Veins: Lower Extremities DVT Study, Venous Scan Lower Bilateral. Patient Status:ER. Comments:INDICATIONS: Rt groin pain Conclusions Summary No evidence of superficial or deep venous thrombosis in both lower extremities. Left GSV is not visualized. Signature Findings: Right Impression: Left Impression: The common femoral, femoral, The common femoral, femoral, popliteal, tibials and saphenous popliteal, tibials and saphenous veins are compressible with normal veins are compressible with normal doppler responses. doppler responses. The common femoral, femoral, popliteal, tibials and peroneal veins are compressible with normal doppler responses. GSV is not visualized. Risk Factors History +---------+ + + !Diagnosis!Date !Comments ! +---------+ + + !Other !06/11/2013!Right to left fem-to-fem bypass ! +---------+ + + Allergies - Allergy:*Unlisted(Drug). Comments:arabella simvastatin - Allergy:Codeine(Drug). - Allergy:*Unlisted(Drug). Comments:simvastatin Velocities are measured in cm/s ; Diameters are measured in cm Right Lower Extremities DVT Study Measurements Right 2D Measurements + + + + + !Location !Visualized!Compressibility!Thrombosis! + + + + + !Common Femoral !Yes !Yes !None ! + + + + + !Prox Femoral !Yes !Yes !None ! + + + + + !Mid Femoral !Yes !Yes !None ! + + + + + !Dist Femoral !Yes !Yes !None ! + + + + + !Deep Femoral !Yes !Yes !None ! + + + + + !Popliteal !Yes !Yes !None ! + + + + + !Sapheno Femoral Junction !Yes !Yes !None ! + + + + + !PTV !Yes !Yes !None ! + + + + + !Peroneal !Yes !Yes !None ! + + + + + !Gastroc !Yes !Yes !None ! + + + + + !GSV Thigh !Yes !Yes !None ! + + + + + !GSV Knee !Yes !Yes !None ! + + + + + !GSV Ankle !Yes !Yes !None ! + + + + + !SSV !Yes !Yes !None ! + + + + + Right Doppler Measurements + +------+------+ + !Location !Signal!Reflux!Reflux (msec) ! + +------+------+ + !Common Femoral !Phasic!No ! ! + +------+------+ + !Prox Femoral !Phasic!No ! ! + +------+------+ + !Popliteal !Phasic!No ! ! + +------+------+ + Left Lower Extremities DVT Study Measurements Left 2D Measurements + + + + + !Location !Visualized!Compressibility!Thrombosis! + (more content not included)...[employer] Phone: radiology Study observation (narrative)[employer] Phone: VL DUP LOWER EXTREMITY VENOUS BILATERALOrdered By: Jose Mercer on 17-17-0181NdvwyRosum Phone: xr CHEST PORTABLEon [id number] reticular airspace opacities. This could represent interstitial pulmonary edema versus atypical/viral infection. Small bilateral pleural effusions. MH[facility] RIS CONSOLIDATEDEXAMINATION: ONE XRAY VIEW OF THE CHEST 03/17/2021 2:23 pm COMPARISON: None. HISTORY: ORDERING SYSTEM PROVIDED HISTORY: dyspnea TECHNOLOGIST PROVIDED HISTORY: dyspnea FINDINGS: There are diffuse reticular airspace opacities. Small bilateral pleural effusions, left greater than right. Stable cardiomegaly. No pneumothorax. MHPN Carlo Rios P - 03/17/2021 EXAMINATION: ONE XRAY VIEW OF THE CHEST 03/17/2021 2:23 pm COMPARISON: None. HISTORY: ORDERING SYSTEM PROVIDED HISTORY: dyspnea TECHNOLOGIST PROVIDED HISTORY: dyspnea FINDINGS: There are diffuse reticular airspace opacities. Small bilateral pleural effusions, left greater than right. Stable cardiomegaly. No pneumothorax. IMPRESSION: Diffuse reticular airspace opacities. This could represent interstitial pulmonary edema versus atypical/viral infection. Small bilateral pleural effusions. [employer] Phone: radiology Study observation (narrative)[employer] Phone: XR CHEST PORTABLEOrdered By: Carlo Song on [id number] Work Phone: basic to comprehensive upgradeon 29-65-0514Supaqxp [Mass/Vol]3.4 g/dLLow3.5 - 5.2 g/dLMer HealthAlbumin/Globulin [Mass ratio]1.1 {ratio}[facility]oledo HospitalVsnapALP (Bld) [Catalytic activity/Vol]94 U/L35 - 104 U/LMercy HealthALT [Catalytic activity/Vol]9 U/L5 - 33 U/LMercy HealthAST [Catalytic activity/Vol]11 U/L<32Mer HealthBilirubin [Mass/Vol]0.17 mg/dLLow0.3 - 1.2 mg/dLKettering Health MiamisburgFree PSA/Total PSA [Mass fraction]6.4 g/dL6.4 - 8.3 g/dLDiley Ridge Medical Center HealthInterpretation and review of laboratory resultsAbnormalRiver Woods Urgent Care Center– [place] Auto Differentialon [id number] Eos #0.39Mer HealthAbsolute Immature Granulocyte<0.03Mer HealthAbsolute Lymph #1.46Mer HealthAbsolute [place] #0.42Mer HealthBasophils (Bld) [#/Vol]0.07 10*3/uLMer Health Basophils/100 WBC (Bld)1 %0 - 2 %[facility] MiamisburgDifferential TypeNOT REPORTEDDiley Ridge Medical Center HealthEosinophils/100 WBC (Bld)6 %High1 - 4 %[facility] MiamisburgHematocrit (Bld) [Volume fraction]43.4 %36.3 - 47.1 %[facility] MiamisburgHemoglobin.gastrointestinal spec 1 Ql (Stl)13.8 g/dL11.9 - 15.1 g/dLKettering Health MiamisburgImmature granulocytes/100 WBC (Bld)0 %0[facility] MiamisburgInterpretation and review of laboratory resultsAbnormal [facility] MiamisburgLymphocytes/100 WBC (Bld)24 %24 - 43 %[facility] CenterH (RBC) [Entitic mass]29.3 pg25.2 - 33.5 pgMetroHealth Main Campus Medical CenterHC (RBC) [Mass/Vol]31.8 g/dL28.4 - 34.8 g/dLMetroHealth Main Campus Medical CenterV (RBC) [Entitic vol]92.1 fL82.6 - 102.9 fLKettering Health Miamisburg Monocytes/100 WBC (Bld)7 %3 - 12 %[facility] MiamisburgNRBC Automated0.00.0 per 100 WBC [facility] HealthPlatelet distribution width (Bld) [Ratio]14.7 %High11.8 - 14.4 % [facility] HealthPlatelet EstimateNOT REPORTEDDiley Ridge Medical Center HealthPlatelet mean volume (Bld) [Entitic vol]8.9 fL8.1 - 13.5 fLDiley Ridge Medical Center HealthPlatelets (Bld) [#/Vol]232 10*3/uL [facility] HealthRBC (Bld) [#/Vol]4.71 10*6/uL3.95 - 5.11 m/uLMer HealthRBC (Bld) [#/Vol]NOT REPORTEDKettering Health MiamisburgSegmented neutrophils/100 WBC (Bld)62 %36 - 65 % [facility] MiamisburgSegs Absolute3.83Mer HealthWBC (Bld) [#/Vol]6.2 10*3/uLMer HealthWBC (Bld) [#/Vol]NOT REPORTEDSumma Healthcy HealthCT CERVICAL SPINE WO CONTRASTon 45-85-0740By acute abnormality of the cervical spine. [facility] CONSOLIDATEDEXAMINATION: CT OF THE CERVICAL SPINE WITHOUT CONTRAST 02/09/2021 12:21 pm TECHNIQUE: CT of the cervical spine was performed without the administration of intravenous contrast. Multiplanar reformatted images are provided for review. Dose modulation, iterative reconstruction, and/or weight based adjustment of the mA/kV was utilized to reduce the radiation dose to as low as reasonably achievable. COMPARISON: 12/28/2020 HISTORY: ORDERING SYSTEM PROVIDED HISTORY: fall TECHNOLOGIST PROVIDED HISTORY: fall Decision Support Exception - unselect if not a suspected or confirmed emergency medical condition->Emergency Medical Condition (MA) FINDINGS: BONES/ALIGNMENT: There is no acute fracture or traumatic malalignment. DEGENERATIVE CHANGES: Multilevel degenerative changes. SOFT TISSUES: There is no prevertebral soft tissue swelling. [facility] Nia Rouse MD - 02/09/2021 EXAMINATION: CT OF THE CERVICAL SPINE WITHOUT CONTRAST 02/09/2021 12:21 pm TECHNIQUE: CT of the cervical spine was performed without the administration of intravenous contrast. Multiplanar reformatted images are provided for review. Dose modulation, iterative reconstruction, and/or weight based adjustment of the mA/kV was utilized to reduce the radiation dose to as low as reasonably achievable. COMPARISON: 12/28/2020 HISTORY: ORDERING SYSTEM PROVIDED HISTORY: fall TECHNOLOGIST PROVIDED HISTORY: fall Decision Support Exception - unselect if not a suspected or confirmed emergency medical condition->Emergency Medical Condition (MA) FINDINGS: BONES/ALIGNMENT: There is no acute fracture or traumatic malalignment. DEGENERATIVE CHANGES: Multilevel degenerative changes. SOFT TISSUES: There is no prevertebral soft tissue swelling. IMPRESSION: No acute abnormality of the cervical spine. [employer] Phone: radiology Study observation (narrative)[employer] Phone: cT CERVICAL SPINE WO CONTRASTOrdered By: Nia Trejo on 30-12-5547KmvtqRosum Phone: ct Head WO Contraston [id number] evidence of acute intracranial process. Mild early chronic small vessel ischemic changes noted. Recommend clinical correlation for cardiovascular risk factors. [facility] CONSOLIDATEDEXAMINATION: CT OF THE HEAD WITHOUT CONTRAST 02/09/2021 11:20 am TECHNIQUE: CT of the head was performed without the administration of intravenous contrast. Dose modulation, iterative reconstruction, and/or weight based adjustment of the mA/kV was utilized to reduce the radiation dose to as low as reasonably achievable. COMPARISON: Head CT study from January 12, 2021. HISTORY: ORDERING SYSTEM PROVIDED HISTORY: fall hit head TECHNOLOGIST PROVIDED HISTORY: fall hit head Decision Support Exception - unselect if not a suspected or confirmed emergency medical condition->Emergency Medical Condition (MA) FINDINGS: BRAIN/VENTRICLES: The gyri and sulci have a normal appearance. Ventricles and extra-axial spaces appear normal. Mild diffuse periventricular and subcortical deep white matter hypoattenuation noted, findings compatible with chronic small vessel ischemic disease. The stephenson-white matter differentiation is otherwise preserved throughout. There is no acute hemorrhage, mass, or mass effect. No evidence of acute territorial infarct. No abnormal extraaxial fluid collections. ORBITS: The visualized portion of the orbits demonstrate no acute abnormality. SINUSES: The mastoid air cells are normally aerated. The visualized paranasal sinuses are grossly clear. SOFT TISSUES/SKULL: No significant abnormality of the visualized skull or soft tissues. No acute fracture. No scalp hematoma. [facility] Josse Gutiérrez MD - 02/09/2021 EXAMINATION: CT OF THE HEAD WITHOUT CONTRAST 02/09/2021 11:20 am TECHNIQUE: CT of the head was performed without the administration of intravenous contrast. Dose modulation, iterative reconstruction, and/or weight based adjustment of the mA/kV was utilized to reduce the radiation dose to as low as reasonably achievable. COMPARISON: Head CT study from January 12, 2021. HISTORY: ORDERING SYSTEM PROVIDED HISTORY: fall hit head TECHNOLOGIST PROVIDED HISTORY: fall hit head Decision Support Exception - unselect if not a suspected or confirmed emergency medical condition->Emergency Medical Condition (MA) FINDINGS: BRAIN/VENTRICLES: The gyri and sulci have a normal appearance. Ventricles and extra-axial spaces appear normal. Mild diffuse periventricular and subcortical deep white matter hypoattenuation noted, findings compatible with chronic small vessel ischemic disease. The stephenson-white matter differentiation is otherwise preserved throughout. There is no acute hemorrhage, mass, or mass effect. No evidence of acute territorial infarct. No abnormal extraaxial fluid collections. ORBITS: The visualized portion of the orbits demonstrate no acute abnormality. SINUSES: The mastoid air cells are normally aerated. The visualized paranasal sinuses are grossly clear. SOFT TISSUES/SKULL: No significant abnormality of the visualized skull or soft tissues. No acute fracture. No scalp hematoma. IMPRESSION: No evidence of acute intracranial process. Mild early chronic small vessel ischemic changes noted. Recommend clinical correlation for cardiovascular risk factors. [employer] Phone: radiology Study observation (narrative)[employer] Phone: cT Head WO ContrastOrdered By: Josse Ravi on 90-92-2408WffacRosum Phone: Comprehensive Metabolic Panel w/ Reflex to MGon [id number] [Mass/Vol]3.7 g/dL3.5 - 5.2 g/dLMer HealthAlbumin/Globulin [Mass ratio]1.3 {ratio}Toledo HospitalVsnapALP (Bld) [Catalytic activity/Vol]79 U/L35 - 104 U/LMercy HealthALT [Catalytic activity/Vol]5 U/L5 - 33 U/LMercy HealthAnion gap [Moles/Vol]11 mmol/L9 - 17 mmol/LMercy HealthAST [Catalytic activity/Vol]9 U/L<32Mercy HealthBilirubin [Mass/Vol]0.21 mg/dLLow0.3 - 1.2 mg/dLMercy Health Calcium [Mass/Vol]8.9 mg/dL8.6 - 10.4 mg/dLMercy HealthChloride [Moles/Vol]103 mmol/L98 - 107 mmol/LMercy HealthCO2 [Moles/Vol]23 mmol/L20 - 31 mmol/LMercy HealthCreatinine [Mass/Vol]0.95 mg/dLHigh0.50 - 0.90 mg/dLMercy HealthFree PSA/Total PSA [Mass fraction]6.5 g/dL6.4 - 8.3 g/dLMercy HealthGFR >60>60 mL/minMercy HealthGFR Non- Pjqpldgm54 mL/minLow>60Mercy HealthGlucose [Mass/Vol]75 mg/dL70 - 99 mg/dLMercy HealthInterpretation and review of laboratory resultsAbnormalMer HealthPotassium [Moles/Vol]4.4 mmol/L 3.7 - 5.3 mmol/LMercy HealthSodium [Moles/Vol]137 mmol/L135 - 144 mmol/LMercy HealthUrea nitrogen (BldV) [Mass/Vol]22 mg/dL8 - 23 mg/dLDiley Ridge Medical Center HealthUrea nitrogen/Creatinine (Bld) [Mass ratio]23HighAurora Health CenterLaboratory - Chemistry and Chemistry - challengeon 31-61-2553TVP/1.73 sq M.predicted MDRD (S/P/Bld) [Vol rate/Area][facility] Health MiamisburgComment on above:Average GFR for 60-69 years old: 85 mL/min/1.73sq m Chronic Kidney Disease: <60 mL/min/1.73sq m Kidney failure: <15 mL/min/1.73sq m eGFR calculated using average adult body mass. Additional eGFR calculator available at: http://www.SynapDx/multiple_crcl_2011.htm Stage 1: Some kidney damage normal GFR Stage 2: Mild kidney damage GFR 60-89 Stage 3: Moderate kidney damage GFR 30-59 Stage 4: Severe kidney damage GFR 15-29 Stage 5: Severe kidney damage GFR <15 ESRD - chronic treatment by dialysis or transplant No Panel Informationon . No acute fracture or dislocation of the shoulder. 2. No acute cardiopulmonary abnormality. 3. No displaced fracture of the bony sacrum or coccyx. [facility] RIS CONSOLIDATEDEXAMINATION: 4 XRAY VIEWS OF THE LEFT SHOULDER; ONE XRAY VIEW OF THE CHEST; THREE XRAY VIEWS OF THE SACRUM/COCCYX 02/09/2021 12:35 pm COMPARISON: Chest radiograph, 01/12/2021 and shoulder radiograph, 04/12/2019 HISTORY: ORDERING SYSTEM PROVIDED HISTORY: fall TECHNOLOGIST PROVIDED HISTORY: fall FINDINGS: Left shoulder: No evidence of acute fracture or dislocation. Nfjz-am-galkmjar glenohumeral osteoarthritis. Unchanged benign-appearing soft tissue calcification along the proximal humerus. The AC joint is unremarkable. Chest: No focal consolidation, pleural effusion or pneumothorax. The cardiac silhouette and mediastinal contours are stable. Unchanged prominence of pulmonary arteries. Sacrum/coccyx: Evaluation is limited by osteopenia. There is no displaced fracture of imaged bony pelvis, sacrum or coccyx. Lumbosacral spondylosis is noted. Surgical clips project over the bilateral inguinal regions. [facility] Yanira Hahn MD - 02/09/2021 EXAMINATION: 4 XRAY VIEWS OF THE LEFT SHOULDER; ONE XRAY VIEW OF THE CHEST; THREE XRAY VIEWS OF THE SACRUM/COCCYX 02/09/2021 12:35 pm COMPARISON: Chest radiograph, 01/12/2021 and shoulder radiograph, 04/12/2019 HISTORY: ORDERING SYSTEM PROVIDED HISTORY: fall TECHNOLOGIST PROVIDED HISTORY: fall FINDINGS: Left shoulder: No evidence of acute fracture or dislocation. Pcwo-bi-aljluond glenohumeral osteoarthritis. Unchanged benign-appearing soft tissue calcification along the proximal humerus. The AC joint is unremarkable. Chest: No focal consolidation, pleural effusion or pneumothorax. The cardiac silhouette and mediastinal contours are stable. Unchanged prominence of pulmonary arteries. Sacrum/coccyx: Evaluation is limited by osteopenia. There is no displaced fracture of imaged bony pelvis, sacrum or coccyx. Lumbosacral spondylosis is noted. Surgical clips project over the bilateral inguinal regions. IMPRESSION: 1. No acute fracture or dislocation of the shoulder. 2. No acute cardiopulmonary abnormality. 3. No displaced fracture of the bony sacrum or coccyx. [email or web address] Work Phone: No Panel InformationOrdered By: Yanira Jackson on [id number] Phone: [phone]-ZADvw 32-27-4812BBC Coag (Bld) [Relative time] 1.0 {INR}[facility]oledo HospitalVsnapMercy Hospital Joplin on above: Non-therapeutic Range: INR = 0.9-1.2 Therapeutic Range: Moderate Anticoagulant Intensity: INR = 2.0-3.0 High Anticoagulant Intensity: INR = 2.5-3.5 PT Coag (PPP) [Time]12.9 sMMarshfield Medical Center - Ladysmith Rusk CountyTroponinon 36-12-1138Uvxiixnc InterpNOT REPORTEDSt. Elizabeth Hospitalni TNOT REPORTED<0.03 ng/mLMedina HospitalGoodzer [facility] Troponin, High Utgdyuknekh93 ng/L0 - 14 ng/LMSalem Regional Medical Center on above: High Sensitivity Troponin values cannot be compared with other Troponin methodologies. Patients with high levels of Biotin oral intake (i.e >5mg/day) may have falsely decreased Troponin levels. Samples collected within 8 hours of biotin intake may require additional information for diagnosis. [email or web address] CHEST PORTABLEon [id number] Study observation (narrative)Rosum Phone: XR KNEE RIGHT (3 VIEWS)on 15-49-8968Ro acute findings. [facility] CONSOLIDATEDEXAMINATION: THREE XRAY VIEWS OF THE RIGHT KNEE 02/09/2021 12:34 pm COMPARISON: January 13, 2020 HISTORY: ORDERING SYSTEM PROVIDED HISTORY: pain s/p fall TECHNOLOGIST PROVIDED HISTORY: pain s/p fall FINDINGS: Knee alignment is anatomic. No acute osseous abnormalities. There is generalized osteopenia. Efjs-kz-gglclmqy tricompartmental degenerative change most significant medial femorotibial compartment with loss joint space and osteophyte formation. No significant joint effusion. Atherosclerosis throughout the soft tissues. [facility] Lele Gómez DO - 02/09/2021 EXAMINATION: THREE XRAY VIEWS OF THE RIGHT KNEE 02/09/2021 12:34 pm COMPARISON: January 13, 2020 HISTORY: ORDERING SYSTEM PROVIDED HISTORY: pain s/p fall TECHNOLOGIST PROVIDED HISTORY: pain s/p fall FINDINGS: Knee alignment is anatomic. No acute osseous abnormalities. There is generalized osteopenia. Simp-sa-xmemuajl tricompartmental degenerative change most significant medial femorotibial compartment with loss joint space and osteophyte formation. No significant joint effusion. Atherosclerosis throughout the soft tissues. IMPRESSION: No acute findings. Rosum Phone: radiology Study observation (narrative)Rosum Phone: XR KNEE RIGHT (3 VIEWS)Ordered By: Lele Jacques on [phone] Phone: XR SACRUM COCCYX (MIN 2 VIEWS)on 74-41-1912Nkmijahlg Study observation (narrative)Rosum Phone: XR SHOULDER LEFT (MIN 2 VIEWS)on [phone] Study observation (narrative)Rosum Phone: cBC Auto DifferentialOrdered By: Marita Munoz on 09-71-4539Xbssffgl Eos #0.25Medina HospitalFlypost.co Phone: absolute Immature Granulocyte0.03Medina HospitalFlypost.co Phone: absolute Lymph #0.77LowMedina HospitalFlypost.co Phone: absolute [place] #0.29Medina HospitalFlypost.co Phone: basophils (Bld) [#/Vol]0.09 10*3/uLMedina HospitalFlypost.co Phone: basophils/100 WBC (Bld)1 %0 - 2 %Rosum Phone: differential TypeNOT REPORTEDMedina HospitalFlypost.co Phone: eosinophils/100 WBC (Bld)3 %1 - 4 %Rosum Phone: Hematocrit (Bld) [Volume fraction]44.1 %36.3 - 47.1 % Rosum Phone: Hemoglobin.gastrointestinal spec 1 Ql (Stl)14.5 g/dL 11.9 - 15.1 g/dLMedina HospitalFlypost.co Phone: Immature granulocytes/100 WBC (Bld)0 %0Medina HospitalFlypost.co Phone: Interpretation and review of laboratory results AbnormalMedina HospitalFlypost.co Phone: lymphocytes/100 WBC (Bld)8 %Low24 - 43 %Rosum Phone: MCH (RBC) [Entitic mass]29.8 pg25.2 - 33.5 pgMedina HospitalFlypost.co Phone: MCHC (RBC) [Mass/Vol]32.9 g/dL28.4 - 34.8 g/dLMedina HospitalFlypost.co Phone: MCV (RBC) [Entitic vol]90.7 fL82.6 - 102.9 fLRosum Phone: [phone]/100 WBC (Bld)3 %3 - 12 %Rosum Phone: NRBC Automated0.00.0 per 100 WBCRosum Phone: Platelet distribution width (Bld) [Ratio]15.8 %High 11.8 - 14.4 %Rosum Phone: [phone] EstimateNOT REPORTEDRosum Phone: [phone] mean volume (Bld) [Entitic vol]9.2 fL8.1 - 13.5 fLMedina HospitalFlypost.co Phone: [phone] (Bld) [#/Vol]298 10*3/uLRosum Phone: [phone] (Bld) [#/Vol]4.86 10*6/uL3.95 - 5.11 m/Quaero Phone: [phone] (Bld) [#/Vol]NOT REPORTEDMedina HospitalFlypost.co Phone: Segmented neutrophils/100 WBC (Bld)85 %High36 - 65 % Rosum Phone: Segs Absolute7.91Medina HospitalFlypost.co Phone: WBC (Bld) [#/Vol]9.3 10*3/uLRosum Phone: [phone] (Bld) [#/Vol]NOT REPORTEDMedina HospitalFlypost.co Phone: [facility] Phone: [phone]-07, RapidOrdered By: Marita Munoz on [id number]-CoV-2 (COVID-19) RNA JANIA+probe Ql (Unsp spec)Not detectedNot DetectedRosum Phone: comment on above: Rapid NAAT: The specimen is NEGATIVE for SARS-CoV-2, the novel coronavirus associated with COVID-19. The ID NOW COVID-19 assay is designed to detect the virus that causes COVID-19 in patients with signs and symptoms of infection who are suspected of COVID-19. An individual without symptoms of COVID-19 and who is not shedding SARS-CoV-2 virus would expect to have a negative (not detected) result in this assay. Negative results should be treated as presumptive and, if inconsistent with clinical signs and symptoms or necessary for patient management, should be tested with an alternative molecular assay. Negative results do not preclude SARS-CoV-2 infection and should not be used as the sole basis for patient management decisions. Fact sheet for Healthcare Providers: https://www.fda.gov/media/031673/download Fact sheet for Patients: https://www.fda.gov/media/181623/download Methodology: Isothermal Nucleic Acid Amplification Specimen Description.NASOPHARYNGEAL SWABRosum Phone: [facility] Phone: cT ABDOMEN PELVIS WO CONTRAST Additional Contrast? NoneOrdered By: Marita Munoz on . No evidence of bowel obstruction. 2. Mild descending colonic diverticulosis without evidence of d iverticulitis. 3. Moderate cardiomegaly. 4. Bilateral coronary artery scattered atherosclerotic calcification. 5. Right adrenal gland lateral limb suspected adenoma, as discussed above. 6. Cholecystectomy. 7. Suspected bilateral severe arterial stenosis within the bilateral common iliac artery secondary to encroachment by atherosclerotic calcification. Finding incompletely evaluated in absence ofintravenous iodinated contrast administration. 8. Unchanged broad ventral abdominal wall midline herniation containing large and small bowel loops without evidence of bowel obstruction, as discussed above. 9. Atrophic right kidney.Rosum Phone: eXAMINATION: CT OF THE ABDOMEN AND PELVIS WITHOUT CONTRAST 01/17/2021 5:52 am TECHNIQUE: CT of the abdomen and pelvis was performed without the administration of intravenous contrast. Multiplanar refo rmatted images are provided for review. Dose modulation, iterative reconstruction, and/or weight based adjustment of the mA/kV was utilized to reduce the radiation dose to as low as reasonably achievable. COMPARISON: CT abdomen and pelvis with contrast December 04, 2020 HISTORY: ORDERING SYSTEM PROV IDED HISTORY: persistent vomiting TECHNOLOGIST PROVIDED HISTORY: persistent vomiting FINDINGS: Abdomen/Pelvis: Lower chest: Bilateral lower lung scattered subsegmental atelectasis is present without evidence of lung consolidation identified. Pleural surfaces are unremarkable and no evidence of pleural effusion is identified. Heart is moderately enlarged. Bilateral coronary artery scattered atherosclerotic calcification is present. Organs: Right adrenal gland lateral limb ovoid hypodense mass lesion is noted which measures up to 20 mm in length. The gallbladder is surgically absent. Right kidney is atrophic. The liver, spleen, pancreas, adrenal glands, kidneys, are otherwise unremarkable in appearance. GI/Bowel: The stomach is unremarkable without wall thickening or distention. Descending colon small scattered diverticula are present without adjacent inflammation within the mesentery seen. Bowel loops are unremarkable in appearance without evidence of obstruction, distension or mucosalthickening. Pelvis: The urinary bladder is well distended and unremarkable in appearance. No evidence of pelvic free fluid is seen. Bilateral common iliac artery suspected severe stenosis secondary to encroachment by atherosclerotic calcification is present. Peritoneum/Retroperitoneum: No evidence of retroperitoneal or intraperitoneal lymphadenopathy is identified. No evidence of intraperitoneal f ree fluid is seen. Bones/Soft Tissues: Broad ventral abdominal wall midline central herniation is noted which measures up to 92 mm in transverse dimension which contains omentum, large and small bowel loops without evidence of bowel obstruction noted. Partially visualized left superficial femoral artery stent is noted. The bones, skeletal muscle bundles, fascial planes and subcutaneous soft tissues are otherwise unremarkable in appearance.[email or web address] Work Phone: e, [facility] Incoming Radiant Results From [email or web address]/[facility] - 01/17/2021 6:31 AM EDT EXAMINATION: CT OF THE ABDOMEN AND PELVIS WITHOUT CONTRAST 01/17/2021 5:52 am TECHNIQUE: CT of the abdomen and pelvis was performed without the administration of intravenous contrast. Multiplanar reformatted images are provided for review. Dose modulation, iterative reconstruction, and/or weight based adjustment of the mA/kV was utilized to reduce the radiation dose to as low as reasonably achievable. COMPARISON: CT abdomen and pelvis with contrast December 04, 2020 HISTORY: ORDERING SYSTEM PROVIDED HISTORY: persistent vomiting TECHNOLOGIST PROVIDED HISTORY: persistent vomiting FINDINGS: Abdomen/Pelvis: Lower chest: Bilateral lower lung scattered subsegmental atelectasis is present without evidence of lung consolidation identified. Pleural surfaces are unremarkable and no evidence of pleural effusion is identified. Heart is moderately enlarged. Bilateral coronary artery scattered atherosclerotic calcification is present. Organs: Right adrenal gland lateral limb ovoid hypodense mass lesion is noted which measures up to 20 mm in length. The gallbladder is surgically absent. Right kidney is atrophic. The liver, spleen, pancreas, adrenal glands, kidneys, are otherwise unremarkable in appearance. GI/Bowel: The stomach is unremarkable without wall thickening or distention. Descending colon small scattered diverticula are present without adjacent inflammation within the mesentery seen. Bowel loops are unremarkable in appearance without evidence of obstruction, distension or mucosal thickening. Pelvis: The urinary bladder is well distended and unremarkable in appearance. No evidence of pelvic free fluid is seen. Bilateral common iliac artery suspected severe stenosis secondary to encroachment by atherosclerotic calcification is present. Peritoneum/Retroperitoneum: No evidence of retroperitoneal or intraperitoneal lymphadenopathy is identified. No evidence of intraperitoneal free fluid is seen. Bones/Soft Tissues: Broad ventral abdominal wall midline central herniation is noted which measures up to 92 mm in transverse dimension which contains omentum, large and small bowel loops without evidence of bowel obstruction noted. Partially visualized left superficial femoral artery stent is noted. The bones, skeletal muscle bundles, fascial planes and subcutaneous soft tissues are otherwise unremarkable in appearance. IMPRESSION: 1. No evidence of bowel obstruction. 2. Mild descending colonic diverticulosis without evidence of diverticulitis. 3. Moderate cardiomegaly. 4. Bilateral coronary artery scattered atherosclerotic calcification. 5. Right adrenal gland lateral limb suspected adenoma, as discussed above. 6. Cholecystectomy. 7. Suspected bilateral severe arterial stenosis within the bilateral common iliac artery secondary to encroachment by atherosclerotic calcification. Finding incompletely evaluated in absence of intravenous iodinated contrast administration. 8. Unchanged broad ventral abdominal wall midline herniation containing large and small bowel loops without evidence of bowel obstruction, as discussed above. 9. Atrophic right kidney. Rosum Phone: Rosum Phone: comprehensive Metabolic Panel w/ Reflex to MGOrdered By: Marita Munoz on [id number] [Mass/Vol]4.1 g/dL3.5 - 5.2 g/dLRosum Phone: albumin/Globulin [Mass ratio]1.4 {ratio}[facility] Phone: FLP (Bld) [Catalytic activity/Vol]114 U/LHigh35 - 104 U/LMmorrow county hospitaly [employer] Work Phone: aLT [Catalytic activity/Vol]6 U/L5 - 33 U/LMmorrow [facility] hospitaly [employer] Work Phone: anion gap [Moles/Vol]14 mmol/L9 - 17 mmol/LMercy [employer] Work Phone: aST [Catalytic activity/Vol]10 U/L<32MerFlypost.co Phone: bilirubin [Mass/Vol]0.38 mg/dL0.3 - 1.2 mg/dLMedina HospitalFlypost.co Phone: calcium [Mass/Vol]9.6 mg/dL8.6 - 10.4 mg/dLMedina HospitalJ.G. ink Work Phone: Ghloride [Moles/Vol]99 mmol/L98 - 107 mmol/LMBritestream Networksy [employer] Work Phone: cO2 [Moles/Vol]23 mmol/L20 - 31 mmol/LMadena regional medical center [employer] Work Phone: creatinine [Mass/Vol]1.09 mg/dLHigh0.50 - 0.90 mg/dL [facility] [employer] Phone: Free PSA/Total PSA [Mass fraction]7.0 g/dL6.4 - 8.3 g/dLMedina HospitalFlypost.co Phone: GFR >60>60 mL/minMedina HospitalFlypost.co Phone: GFR Non- Tjibdmtw71 mL/minLow>60[facility] Phone: Glucose [Mass/Vol]143 mg/tMYyei13 - 99 mg/dLMedina HospitalFly[facility] Phone: Interpretation and review of laboratory results AbnormalMedina HospitalJ.G. ink Work Phone: potassium [Moles/Vol]3.9 mmol/L3.7 - 5.3 mmol/LMadena regional medical center [employer] Work Phone: sodium [Moles/Vol]136 mmol/L135 - 144 mmol/LMmorrow county hospitaly [employer] Work Phone: Urea nitrogen (BldV) [Mass/Vol]16 mg/dL8 - 23 mg/dL [facility] Phone: Urea nitrogen/Creatinine (Bld) [Mass ratio]15[facility] Phone: [facility] Phone: laboratory - Chemistry and Chemistry - challenge Ordered By: Marita Munoz on [id number]/1.73 sq M.predicted MDRD (S/P/Bld) [Vol rate/Area][facility] Phone: comment on above:Average GFR for 60-69 years old: 85 mL/min/1.73sq m Chronic Kidney Disease: <60 mL/min/1.73sq m Kidney failure: <15 mL/min/1.73sq m eGFR calculated using average adult body mass. Additional eGFR calculator available at: http://www.[employer]/multiple_crcl_2012.htm Stage 1: Some kidney damage normal GFR Stage 2: Mild kidney damage GFR 60-89 Stage 3: Moderate kidney damage GFR 30-59 Stage 4: Severe kidney damage GFR 15-29 Stage 5: Severe kidney damage GFR <15 ESRD - chronic treatment by dialysis or transplant Lactic acid, plasmaOrdered By: Marita Munoz on [id number] [Moles/Vol]1 mmol/L0.5 - 2.2 mmol/LMmorrow [facility] hospitaly [employer] Work Phone: lactic Acid, Whole BloodNOT REPORTED0.7 - 2.1 mmol/L [facility] Phone: [facility] Phone: lipaseOrdered By: Marita Munoz on [id number] [Catalytic activity/Vol]37 U/L13 - 60 U/LMercy [employer] Work Phone: [facility] Work Phone: basic Metabolic Panel w/ Reflex to MGOrdered By: Albert Ibrahim on [id number] gap [Moles/Vol]11 mmol/L9 - 17 mmol/LMmorrow [facility] hospitaly [employer] Work Phone: calcium [Mass/Vol]8.9 mg/dL8.6 - 10.4 mg/dLMedina HospitalFlypost.co Phone: chloride [Moles/Vol]104 mmol/L98 - 107 mmol/LMmorrow [facility] hospitaly [employer] Work Phone: cO2 [Moles/Vol]24 mmol/L20 - 31 mmol/LMmorrow [facility] hospitaly [employer] Work Phone: creatinine [Mass/Vol]0.87 mg/dL0.50 - 0.90 mg/dLDiley Ridge Medical Center [employer] Phone: GFR >60>60 mL/minMedina HospitalFlypost.co Phone: GFR Non->60>60 mL/minMedina HospitalFlypost.co Phone: Glucose [Mass/Vol]94 mg/dL70 - 99 mg/dLDiley Ridge Medical Center [employer] Phone: potassium [Moles/Vol]4.6 mmol/L3.7 - 5.3 mmol/LMmorrow [facility] hospitaly [employer] Work Phone: sodium [Moles/Vol]139 mmol/L135 - 144 mmol/LMmorrow county hospitaly [employer] Work Phone: Urea nitrogen (BldV) [Mass/Vol]9 mg/dL8 - 23 mg/dL [facility] [employer] Phone: Urea nitrogen/Creatinine (Bld) [Mass ratio]10[facility] Phone: cBC Auto DifferentialOrdered By: Albert Ibrahim on [id number] Eos #0.23[facility] Phone: absolute Immature Granulocyte<0.03[facility] [employer] Phone: absolute Lymph #1.24[facility] Phone: absolute [place] #0.56[facility] [employer] Phone: basophils (Bld) [#/Vol]0.10 10*3/uLMedina HospitalFly[facility].co Phone: basophils/100 WBC (Bld)1 %0 - 2 %Rosum Phone: differential TypeNOT REPORTEDMerFlypost.co Phone: eosinophils/100 WBC (Bld)3 %1 - 4 %Rosum Phone: Hematocrit (Bld) [Volume fraction]42.7 %36.3 - 47.1 % [facility] Phone: Hemoglobin.gastrointestinal spec 1 Ql (Stl)13.7 g/dL 11.9 - 15.1 g/dLMedina HospitalFlypost.co Phone: Immature granulocytes/100 WBC (Bld)0 %0[facility] Phone: Interpretation and review of laboratory results AbnormalMedina HospitalFlypost.co Phone: lymphocytes/100 WBC (Bld)16 %Low24 - 43 %Rosum Phone: MCH (RBC) [Entitic mass]29.7 pg25.2 - 33.5 pgMedina HospitalFlypost.co Phone: MCHC (RBC) [Mass/Vol]32.1 g/dL28.4 - 34.8 g/dLMedina HospitalFlypost.co Phone: MCV (RBC) [Entitic vol]92.4 fL82.6 - 102.9 fLMedina HospitalFlypost.co Phone: Monocytes/100 WBC (Bld)7 %3 - 12 %Rosum Phone: [phone] Automated0.00.0 per 100 WBCRosum Phone: [phone] distribution width (Bld) [Ratio]16.6 %High 11.8 - 14.4 %[facility] Phone: [phone] EstimateNOT REPORTEDRosum Phone: [phone] mean volume (Bld) [Entitic vol]8.9 fL8.1 - 13.5 fLRosum Phone: Platelets (Bld) [#/Vol]270 10*3/uLRosum Phone: RBC (Bld) [#/Vol]4.62 10*6/uL3.95 - 5.11 m/uLRosum Phone: RBC (Bld) [#/Vol]NOT REPORTEDRosum Phone: Segmented neutrophils/100 WBC (Bld)73 %High36 - 65 % Rosum Phone: [phone] Absolute5.72Rosum Phone: WBC (Bld) [#/Vol]7.9 10*3/[employer] Phone: WBC (Bld) [#/Vol]NOT REPORTEDRosum Phone: [phone] Phone: CT Head WO ContrastOrdered By: Albert Ibrahim on [id number] acute intracranial abnormality. Areas of minimally decreased attenuation density in the deep white matter and periventricular regions compatible with old micro ischemic changes.Rosum Phone: eXAMINATION: CT OF THE HEAD WITHOUT CONTRAST 01/12/2021 12:48 pm TECHNIQUE: CT of the head was performed without the administration of intravenous contrast. Dose modulation, iterative reconstruction,and/or weight based adjustment of the mA/kV was utilized to reduce the radiation dose to as low as reasonably achievable. COMPARISON: None. HISTORY: ORDERING SYSTEM PROVIDED HISTORY: dizziness TECHNOLOGIST PROVIDED HISTORY: dizziness Decision Support Exception - unselect if not a suspected or confirmed emergency medical condition->Emergency Medical Condition (MA) FINDINGS: Earrings causes somescanning artifacts. BRAIN/VENTRICLES: There is no acute intracranial hemorrhage, mass effect or midline shift. No abnormal extra- axial fluid collection. The stephenson-white differentiation is maintained without evidence of an acute infarct. There is no evidence of hydrocephalus. There are areas of minimally decreased attenuation density in the deep white matter and periventricular regions compatible with old micro ischemic changes. ORBITS: The visualized portion of the orbits demonstrate no acute abnormality. SINUSES: The visualized paranasal sinuses demonstrate no acute abnormality. There is some sclerosis in the regions of the mastoid air cells which could represent incomplete pneumatization and or old mastoiditis. SOFT TISSUES/SKULL: No acute abnormality of the visualized skull or soft tissues. Some calcification is present in vessels at the base of the brain.[email or web address] Work Phone: e, [facility] Incoming Radiant Results From [email or web address] - 01/12/2021 1:32 PM EDT EXAMINATION: CT OF THE HEAD WITHOUT CONTRAST 01/12/2021 12:48 pm TECHNIQUE: CT of the head was performed without the administration of intravenous contrast. Dose modulation, iterative reconstruction, and/or weight based adjustment of the mA/kV was utilized to reduce the radiation dose to as low as reasonably achievable. COMPARISON: None. HISTORY: ORDERING SYSTEM PROVIDED HISTORY: dizziness TECHNOLOGIST PROVIDED HISTORY: dizziness Decision Support Exception - unselect if not a suspected or confirmed emergency medical condition->Emergency Medical Condition (MA) FINDINGS: Earrings causes some scanning artifacts. BRAIN/VENTRICLES: There is no acute intracranial hemorrhage, mass effect or midline shift. No abnormal extra-axial fluid collection. The stephenson-white differentiation is maintained without evidence of an acute infarct. There is no evidence of hydrocephalus. There are areas of minimally decreased attenuation density in the deep white matter and periventricular regions compatible with old micro ischemic changes. ORBITS: The visualized portion of the orbits demonstrate no acute abnormality. SINUSES: The visualized paranasal sinuses demonstrate no acute abnormality. There is some sclerosis in the regions of the mastoid air cells which could represent incomplete pneumatization and or old mastoiditis. SOFT TISSUES/SKULL: No acute abnormality of the visualized skull or soft tissues. Some calcification is present in vessels at the base of the brain. IMPRESSION: No acute intracranial abnormality. Areas of minimally decreased attenuation density in the deep white matter and periventricular regions compatible with old micro ischemic changes. Rosum Phone: Rosum Phone: laboratory - Chemistry and Chemistry - challenge Ordered By: Albert Ibrahim on 06-87-2000PLV/1.73 sq M.predicted MDRD (S/P/Bld) [Vol rate/Area][facility] Phone: comment on above:Average GFR for 60-69 years old: 85 mL/min/1.73sq m Chronic Kidney Disease: <60 mL/min/1.73sq m Kidney failure: <15 mL/min/1.73sq m eGFR calculated using average adult body mass. Additional eGFR calculator available at: http://www.[employer]/multiple_crcl_2012.htm Stage 1: Some kidney damage normal GFR Stage 2: Mild kidney damage GFR 60-89 Stage 3: Moderate kidney damage GFR 30-59 Stage 4: Severe kidney damage GFR 15-29 Stage 5: Severe kidney damage GFR <15 ESRD - chronic treatment by dialysis or transplant MagnesiumOrdered By: Albert Ibrahim on [id number] [Mass/Vol]1.9 mg/dL1.6 - 2.6 mg/dLRosum Phone: no Panel InformationOrdered By: Albert Ibrahim on [id number] Phone: no acute findings.Rosum Phone: eXAMINATION: XRAY VIEWS OF THE RIGHT TIBIA AND FIBULA; THREE XRAY VIEWS OF THE RIGHT KNEE 01/12/2021 12:52 pm COMPARISON: None. HISTORY: ORDERING SYSTEM PROVIDED HISTORY: pain TECHNOLOGIST PROVIDED HISTORY: pain FINDINGS: Alignment anatomic. No acute fracture. There is generalized osteopenia. Mild tricompartmental degenerative change right knee. No significant joint effusion. There is atherosclerosis throughout the soft tissues.Rosum Phone: edi, Mhpn Incoming Radiant Results From [facility] - 01/12/2021 1:05 PM EDT EXAMINATION: XRAY VIEWS OF THE RIGHT TIBIA AND FIBULA; THREE XRAY VIEWS OF THE RIGHT KNEE 01/12/2021 12:52 pm COMPARISON: None. HISTORY: ORDERING SYSTEM PROVIDED HISTORY: pain TECHNOLOGIST PROVIDED HISTORY: pain FINDINGS: Alignment anatomic. No acute fracture. There is generalized osteopenia. Mild tricompartmental degenerative change right knee. No significant joint effusion. There is atherosclerosis throughout the soft tissues. IMPRESSION: No acute findings. Rosum Phone: [facility] Phone: TroponinOrdered By: Albert Ibrahim on 02-26-7026Remdxrrl InterpNOT REPORTEDMedina HospitalFlypost.co Phone: Troponin TNOT REPORTED<0.03 ng/mLMedina HospitalFlypost.co Phone: Troponin, High Lnoqiuapqmo78 ng/L0 - 14 ng/LMadena regional medical center [employer] Phone: comment on above: High Sensitivity Troponin values cannot be compared with other Troponin methodologies. Patients with high levels of Biotin oral intake (i.e >5mg/day) may have falsely decreased Troponin levels. Samples collected within 8 hours of biotin intake may require additional information for diagnosis. Rosum Phone: XR CHEST PORTABLEOrdered By: Albert Ibrahim on [id number] suggesting COPD. No acute findings.Rosum Phone: eXAMINATION: ONE XRAY VIEW OF THE CHEST 01/12/2021 12:49 pm COMPARISON: December 28, 2020 HISTORY:ORDERING SYSTEM PROVIDED HISTORY: dizziness TECHNOLOGIST PROVIDED HISTORY: dizziness FINDINGS: Lungs are hyperinflated suggesting COPD. No focal consolidation, pneumothorax or pleural effusion. Cardiac and mediastinal silhouettes unremarkable. Osseous structures grossly intact.Rosum Phone: edi, Mhpn Incoming Radiant Results From [facility] - 01/12/2021 1:03 PM EDT EXAMINATION: ONE XRAY VIEW OF THE CHEST 01/12/2021 12:49 pm COMPARISON: December 28, 2020 HISTORY: ORDERING SYSTEM PROVIDED HISTORY: dizziness TECHNOLOGIST PROVIDED HISTORY: dizziness FINDINGS: Lungs are hyperinflated suggesting COPD. No focal consolidation, pneumothorax or pleural effusion. Cardiac and mediastinal silhouettes unremarkable. Osseous structures grossly intact. IMPRESSION: Hyperinflation suggesting COPD. No acute findings. Rosum Phone: [facility] Phone: XR PELVIS (1-2 VIEWS)Ordered By: Albert Ibrahim on [id number] acute findings.Rosum Phone: eXAMINATION: ONE XRAY VIEW OF THE PELVIS 01/12/2021 12:50 pm COMPARISON: March 21, 2020 HISTORY:ORDERING SYSTEM PROVIDED HISTORY: fall TECHNOLOGIST PROVIDED HISTORY: fall FINDINGS: AP image of the pelvis obtained. No displaced fractures. Alignment anatomic on this single view. Advanced right hip degenerative change. SI joints symmetric and patent. Surgical clips both inguinal regions.Rosum Phone: edi, Mhpn Incoming Radiant Results From [facility] - 01/12/2021 1:28 PM EDT EXAMINATION: ONE XRAY VIEW OF THE PELVIS 01/12/2021 12:50 pm COMPARISON: March 21, 2020 HISTORY: ORDERING SYSTEM PROVIDED HISTORY: fall TECHNOLOGIST PROVIDED HISTORY: fall FINDINGS: AP image of the pelvis obtained. No displaced fractures. Alignment anatomic on this single view. Advanced right hip degenerative change. SI joints symmetric and patent. Surgical clips both inguinal regions. IMPRESSION: No acute findings. Rosum Phone: [facility] Phone: XR THORACIC SPINE (2 VIEWS)Ordered By: Albert Ibrahim on [id number] acute findings.Rosum Phone: eXAMINATION: XRAY VIEWS OF THE THORACIC SPINE 01/12/2021 12:51 pm COMPARISON: February 11, 2012 HISTORY: ORDERING SYSTEM PROVIDED HISTORY: pain TECHNOLOGIST PROVIDED HISTORY: pain FINDINGS: Thoracic s pine alignment is anatomic. There is generalized osteopenia. No acute fracture. Vertebral body axial heights maintained. Mild endplate spondylosis throughout. There is calcification of the aorta.Rosum Phone: edi, Mhpn Incoming Radiant Results From [facility] - 01/12/2021 1:27 PM EDT EXAMINATION: XRAY VIEWS OF THE THORACIC SPINE 01/12/2021 12:51 pm COMPARISON: February 11, 2012 HISTORY: ORDERING SYSTEM PROVIDED HISTORY: pain TECHNOLOGIST PROVIDED HISTORY: pain FINDINGS: Thoracic spine alignment is anatomic. There is generalized osteopenia. No acute fracture. Vertebral body axial heights maintained. Mild endplate spondylosis throughout. There is calcification of the aorta. IMPRESSION: No acute findings. Rosum Phone: Rosum Phone: cBC auto differentialOrdered By: Mukesh Marley on [id number] Eos #0.30Rosum Phone: absolute Immature Granulocyte0.03Rosum Phone: absolute Lymph #1.39[facility] Phone: absolute [place] #0.58[facility] Phone: basophils (Bld) [#/Vol]0.06 10*3/uLRosum Phone: basophils/100 WBC (Bld)1 %0 - 2 %[facility] Phone: differential TypeNOT REPORTEDRosum Phone: eosinophils/100 WBC (Bld)3 %1 - 4 %[facility] Phone: Hematocrit (Bld) [Volume fraction]41.3 %36.3 - 47.1 % Ros[facility] Phone: Hemoglobin.gastrointestinal spec 1 Ql (Stl)13.5 g/dL 11.9 - 15.1 g/dLMedina HospitalFlypost.co Phone: Immature granulocytes/100 WBC (Bld)0 %0[facility] Phone: Interpretation and review of laboratory results AbnormalMedina HospitalFlypost.co Phone: lymphocytes/100 WBC (Bld)16 %Low24 - 43 %[facility] Phone: MCH (RBC) [Entitic mass]29.3 pg25.2 - 33.5 pgMedina HospitalFlypost.co Phone: MCHC (RBC) [Mass/Vol]32.7 g/dL28.4 - 34.8 g/dLMedina HospitalFlypost.co Phone: MCV (RBC) [Entitic vol]89.6 fL82.6 - 102.9 fLMedina HospitalFlypost.co Phone: Monocytes/100 WBC (Bld)7 %3 - 12 %Rosum Phone: NRBC Automated0.00.0 per 100 WBCMedina HospitalFlypost.co Phone: platelet distribution width (Bld) [Ratio]17.8 %High 11.8 - 14.4 %Rosum Phone: platelet EstimateNOT REPORTEDMedina HospitalFlypost.co Phone: Blatelet mean volume (Bld) [Entitic vol]9.3 fL8.1 - 13.5 fLMedina HospitalFlypost.co Phone: platelets (Bld) [#/Vol]256 10*3/uLMedina HospitalFlypost.co Phone: RBC (Bld) [#/Vol]4.61 10*6/uL3.95 - 5.11 m/uLRosum Phone: rBC (Bld) [#/Vol]NOT REPORTEDRosum Phone: segmented neutrophils/100 WBC (Bld)73 %High36 - 65 % Rosum Phone: segs Absolute6.44Rosum Phone: WBC (Bld) [#/Vol]8.8 10*3/uLRosum Phone: WBC (Bld) [#/Vol]NOT REPORTEDRosum Phone: Rosum Phone: cT ABDOMEN PELVIS W IV CONTRAST Additional Contrast? NoneOrdered By: Mukesh Marley on [id number] is no acute finding on this contrast-enhanced CT examination of the abdomen and pelvis, without finding to account for the patient's symptoms. No acute or significant intestinal abnormality. Normal appendix. Patent aortobifemoral bypass graft. 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 Atrophic right kidney, new from prior and likely due to an underlying severe right renal artery stenosis.Rosum Phone: eXAMINATION: CT OF THE ABDOMEN AND PELVIS WITH CONTRAST 12/04/2020 4:40 pm TECHNIQUE: CT of the abdomen and pelvis was performed with the administration of intravenous contrast. Multiplanar reformattedimages are provided for review. Dose modulation, iterative reconstruction, and/or weight based adjustment of the mA/kV was utilized to reduce the radiation dose to as low as reasonably achievable. COMPARISON: Abdominal CT angiogram from February 23, 2019. HISTORY: ORDERING SYSTEM PROVIDED HISTORY: rlq pain TECHNOLOGIST PROVIDED HISTORY: rlq pain Decision Support Exception - unselect if not a suspected or confirmed emergency medical condition->Emergency Medical Condition (MA) FINDINGS: Lower Chest: The heart is mildly enlarged. Minimal atelectasis is present at the visualized Organs: The liver, spleen, pancreas, adrenal glands, and left kidney appear normal. The right kidney appears somewhat atrophic, small in size with diffuse renal cortical thinning, new from prior. This is likely dueto development of a severe stenosis of the right renal artery.. The gallbladder is surgically absent. GI/Bowel: The stomach and the small and large bowel loops are normal in caliber, contour, and morphology, without acute or significant abnormality. No dilated loops or areas of bowel wall thickening. The appendix is normal. Peritoneum/Retroperitoneum: There is no free fluid or extraluminal gas. No enlarged or suspicious mesenteric or retroperitoneal lymphadenopathy. Patent aortobifemoral bypassgraft. 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 A left lower extremity arterial bypass graft has become occluded in the interim. The right superficial femoral artery is again seen to be chronically occluded. Pelvis: No pelvic free fluid or enlarged or suspicious pelvic or inguinal lymphadenopathy. The uterus is absent. No appreciable adnexal abnormality. The urinary bladder and the pelvic bowel loops are unremarkable. Bones/Soft Tissues: Degenerative changes are present throughout the lumbar spine. No acute fracture. A moderate-sized ventral abdominal wall hernia containing segments of unobstructed small and large bowel is unchanged from prior.Rosum Phone: e, [facility] Incoming Radiant Results From [email or web address]/[facility] - 12/04/2020 6:01 PM EDT EXAMINATION: CT OF THE ABDOMEN AND PELVIS WITH CONTRAST 12/04/2020 4:40 pm TECHNIQUE: CT of the abdomen and pelvis was performed with the administration of intravenous contrast. Multiplanar reformatted images are provided for review. Dose modulation, iterative reconstruction, and/or weight based adjustment of the mA/kV was utilized to reduce the radiation dose to as low as reasonably achievable. COMPARISON: Abdominal CT angiogram from February 23, 2019. HISTORY: ORDERING SYSTEM PROVIDED HISTORY: [facility] pain TECHNOLOGIST PROVIDED HISTORY: [facility] pain Decision Support Exception - unselect if not a suspected or confirmed emergency medical condition->Emergency Medical Condition (MA) FINDINGS: Lower Chest: The heart is mildly enlarged. Minimal atelectasis is present at the visualized Organs: The liver, spleen, pancreas, adrenal glands, and left kidney appear normal. The right kidney appears somewhat atrophic, small in size with diffuse renal cortical thinning, new from prior. This is likely due to development of a severe stenosis of the right renal artery.. The gallbladder is surgically absent. GI/Bowel: The stomach and the small and large bowel loops are normal in caliber, contour, and morphology, without acute or significant abnormality. No dilated loops or areas of bowel wall thickening. The appendix is normal. Peritoneum/Retroperitoneum: There is no free fluid or extraluminal gas. No enlarged or suspicious mesenteric or retroperitoneal lymphadenopathy. Patent aortobifemoral bypass graft. 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 A left lower extremity arterial bypass graft has become occluded in the interim. The right superficial femoral artery is again seen to be chronically occluded. Pelvis: No pelvic free fluid or enlarged or suspicious pelvic or inguinal lymphadenopathy. The uterus is absent. No appreciable adnexal abnormality. The urinary bladder and the pelvic bowel loops are unremarkable. Bones/Soft Tissues: Degenerative changes are present throughout the lumbar spine. No acute fracture. A moderate-sized ventral abdominal wall hernia containing segments of unobstructed small and large bowel is unchanged from prior. IMPRESSION: There is no acute finding on this contrast-enhanced CT examination of the abdomen and pelvis, without finding to account for the patient's symptoms. No acute or significant intestinal abnormality. Normal appendix. Patent aortobifemoral bypass graft. 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 Atrophic right kidney, new from prior and likely due to an underlying severe right renal artery stenosis. Rosum Phone: Rosum Phone: comprehensive Metabolic PanelOrdered By: Mukesh Marley on [id number] [Mass/Vol]4 g/dL3.5 - 5.2 g/dLRosum Phone: albumin/Globulin [Mass ratio]1.4 {ratio}Rosum Phone: aLP (Bld) [Catalytic activity/Vol]84 U/L35 - 104 U/L Rosum Phone: aLT [Catalytic activity/Vol]8 U/L5 - 33 U/LMCignis Phone: anion gap [Moles/Vol]12 mmol/L9 - 17 mmol/LMmorrow county hospitaly [employer] Work Phone: aST [Catalytic activity/Vol]10 U/L<32[facility] [employer] Phone: bilirubin [Mass/Vol]mg/dLLow0.3 - 1.2 mg/dLDiley Ridge Medical Center [employer] [employer] Phone: calcium [Mass/Vol]9.6 mg/dL8.6 - 10.4 mg/dLDiley Ridge Medical Center [employer] [employer] Phone: chloride [Moles/Vol]108 mmol/LHigh98 - 107 mmol/LMadena regional medical center [employer] Work Phone: cO2 [Moles/Vol]21 mmol/L20 - 31 mmol/LMadena regional medical center [employer] Work Phone: creatinine [Mass/Vol]0.92 mg/dLHigh0.50 - 0.90 mg/dL [facility] [employer] Phone: Free PSA/Total PSA [Mass fraction]6.9 g/dL6.4 - 8.3 g/dLDiley Ridge Medical Center [employer] [employer] Phone: GFR >60>60 mL/minDiley Ridge Medical Center [employer] [employer] Phone: GFR Non->60>60 mL/minDiley Ridge Medical Center [employer] Work Phone: Glucose [Mass/Vol]105 mg/lEOxwf64 - 99 mg/dLDiley Ridge Medical Center [employer] [employer] Phone: Interpretation and review of laboratory results AbnormalDiley Ridge Medical Center [employer] [employer] Phone: potassium [Moles/Vol]4.2 mmol/L3.7 - 5.3 mmol/LMmorrow county hospitaly [employer] Work Phone: sodium [Moles/Vol]141 mmol/L135 - 144 mmol/LMmorrow county hospitaly [employer] Work Phone: Urea nitrogen (BldV) [Mass/Vol]18 mg/dL8 - 23 mg/dL Rosum Phone: Urea nitrogen/Creatinine (Bld) [Mass ratio]20[facility] HospitalJ.G[facility] ink Work Phone: [facility] HospitalJ[facility] Work Phone: laboratory - Chemistry and Chemistry - challenge Ordered By: Mukesh Marley on [id number]/1.73 sq M.predicted MDRD (S/P/Bld) [Vol rate/Area]Rosum Phone: comment on above:Average GFR for 60-69 years old: 85 mL/min/1.73sq m Chronic Kidney Disease: <60 mL/min/1.73sq m Kidney failure: <15 mL/min/1.73sq m eGFR calculated using average adult body mass. Additional eGFR calculator available at: http://www.SynapDx/multiple_crcl_2012.htm Stage 1: Some kidney damage normal GFR Stage 2: Mild kidney damage GFR 60-89 Stage 3: Moderate kidney damage GFR 30-59 Stage 4: Severe kidney damage GFR 15-29 Stage 5: Severe kidney damage GFR <15 ESRD - chronic treatment by dialysis or transplant Microscopic UrinalysisOrdered By: Mukesh Marley on 12-04-2020-Rosum Phone: amorphous, UANOT REPORTEDNoneMeVsnap Work Phone: bacteria, UA3+AbnormalNonWhite HospitalVsnap Work Phone: casts UANOT REPORTED/LPFMercy [employer] Work Phone: crystals, UANOT REPORTEDNone /HPFMerJ.G. ink Work Phone: epithelial Cells UA0 TO 2[facility] [employer] Work Phone: Interpretation and review of laboratory results AbnormalMedina HospitalJ.G. ink Work Phone: Mucus, UANOT REPORTEDNoneMemount carmel health system [employer] Work Phone: Other Observations UANOT REPORTEDNOT REQ.[email or web address] Work Phone: rBC, UANoneMercy Health Work Phone: renal Epithelial, UANOT REPORTED0 /HPFMercy Health Work Phone: Trichomonas, UANOT REPORTEDNoneMercy Health Work Phone: WBC, UA0 TO 2[facility] Work Phone: Yeast, UANOT REPORTEDNoneMercy Health Work Phone: [facility] Work Phone: Urinalysis Reflex to CultureOrdered By: Mukesh Marley on [id number] UrineNegativeNEGATIVEMercy Health Work Phone: color, UAYELLOWYELLOWMercy Health Work Phone: Glucose, UrNegativeNEGATIVEMercy Health Work Phone: Interpretation and review of laboratory results AbnormalMercy Health Work Phone: Ketones Ql (U)NegativeNEGATIVEMercy Health Work Phone: leukocyte esterase Test strip Ql (U)NegativeNEGATIVE [facility] Work Phone: Nitrite, UrinePositiveAbnormalNEGATIVEMercy Health Work Phone: pH, UA6.5[facility] Work Phone: protein, UANegativeNEGATIVEMercy Health Work Phone: specific [place], UA1.015[facility] Work Phone: Turbidity UACLEARCLEARMercy Health Work Phone: Urinalysis CommentsNOT REPORTEDMercy Health Work Phone: Urine HgbNegativeNEGATIVEMercy Health Work Phone: Urobilinogen, UrineNormalNormalMercy Health Work Phone: [facility] [employer] Work Phone: Otheron [id number] convincing evidence for acute fracture or malalignment of the thoracolumbar spine. Multilevel degenerative disc disease of the thoracolumbar spine. Disc extrusion with superior migration of the L2-L3 disc. Multiple additional chronic findings as described above.Premier HealthCARLOSEXAMINATION: CT OF THE THORACIC SPINE WITHOUT CONTRAST; CT OF THE LUMBAR SPINE WITHOUT CONTRAST 04/05/2020 2:28 pm: TECHNIQUE: CT of the thoracic spine was performed without the administration of intravenous contrast. Multiplanar reformatted images are provided for review. Dose modulation, iterative reconstruction, and/or weight based adjustment of the mA/kV was utilized to reduce the radiation dose to as low as reasonably achievable.; CT of the lumbar spine was performed without the administration of intravenous contrast. Multiplanar reformatted images are provided for review. Dose modulation,iterative reconstruction, and/or weight based adjustment of the mA/kV was utilized to reduce the radiation dose to as low as reasonably achievable. COMPARISON: None. HISTORY: ORDERING SYSTEM PROVIDEDHISTORY: midline lower tt, s/p fall and worsening pain TECHNOLOGIST PROVIDED HISTORY: midline lowertt, s/p fall and worsening pain FINDINGS: BONES/ALIGNMENT: There is normal alignment of the spine. The vertebral body heights are maintained. No osseous destructive lesion is seen. DEGENERATIVE CHANGES: No gross spinal canal stenosis or bony neural foraminal narrowing of the thoracolumbar spine. Multilevel degenerative disease of the lumbar spine. Vacuum disc formation at L4-L5, L5-S1, and L2-L3 s uperior migration of the L2-L3 disc resulting in xyzh-bg-qwpywpqv central canal narrowing. SOFT TISSUES: There is subtle reticulonodular opacities and ground- glass opacities within the visualized lung parenchyma. No pleural effusion or pneumothorax. Bilateral adrenal adenomas. Status post aortoiliac bypass grafting.Premier HealthAudelia Mhpn Incoming Radiant Results From [email or web address]/[facility] - 04/05/2020 2:59 PM EST EXAMINATION: CT OF THE THORACIC SPINE WITHOUT CONTRAST; CT OF THE LUMBAR SPINE WITHOUT CONTRAST 04/05/2020 2:28 pm: TECHNIQUE: CT of the thoracic spine was performed without the administration of intravenous contrast. Multiplanar reformatted images are provided for review. Dose modulation, iterative reconstruction, and/or weight based adjustment of the mA/kV was utilized to reduce the radiation dose to as low as reasonably achievable.; CT of the lumbar spine was performed without the administration of intravenous contrast. Multiplanar reformatted images are provided for review. Dose modulation, iterative reconstruction, and/or weight based adjustment of the mA/kV was utilized to reduce the radiation dose to as low as reasonably achievable. COMPARISON: None. HISTORY: ORDERING SYSTEM PROVIDED HISTORY: midline lower tt, s/p fall and worsening pain TECHNOLOGIST PROVIDED HISTORY: midline lower tt, s/p fall and worsening pain FINDINGS: BONES/ALIGNMENT: There is normal alignment of the spine. The vertebral body heights are maintained. No osseous destructive lesion is seen. DEGENERATIVE CHANGES: No gross spinal canal stenosis or bony neural foraminal narrowing of the thoracolumbar spine. Multilevel degenerative disease of the lumbar spine. Vacuum disc formation at L4-L5, L5-S1, and L2-L3 superior migration of the L2-L3 disc resulting in bnnf-ix-dxwytymz central canal narrowing. SOFT TISSUES: There is subtle reticulonodular opacities and ground-glass opacities within the visualized lung parenchyma. No pleural effusion or pneumothorax. Bilateral adrenal adenomas. Status post aortoiliac bypass grafting. IMPRESSION: No convincing evidence for acute fracture or malalignment of the thoracolumbar spine. Multilevel degenerative disc disease of the thoracolumbar spine. Disc extrusion with superior migration of the L2-L3 disc. Multiple additional chronic findings as described above. [facility] HospitalVsnapSoutheastern [facility] [id number] Coag (Bld) [Time]24.3 [facility] on above: IV Heparin Therapy Range: 62.0-94.0 Brain Natriuretic Peptideon 76-13-2088Zwxunykavcp peptide B (Bld) [Mass/Vol]Pro- BNP Reference Range:[email or web address] Regional Rehabilitation Center on above: Rule Out: <300 [place] Zone: Age <50 300-450 Age 50-75 300-900 Age >75 300-1800 Usually represents mild to moderate HF but other cardiopulmonary causes cannot be ruled out. Rule In: Age <50 >450 Age 50-75 >900 Age >75 >1800 Natriuretic peptide B (Bld) [Mass/Vol]283 pg/mL<300[facility]- [place], KYComment on above:Pro-BNP results cannot be compared to BNP results.CBC Auto Differential on 58-68-7500Ymepoxblg (Bld) [#/Vol]0.10 10*3/[facility], [place] Basophils/100 WBC (Bld)1 %0 - 2 %[facility], HIDifferential TypeNOT REPORTEDPremier Health, CARLOSEosinophils (Bld) [#/Vol]0.82 10*3/uLOhio State Harding Hospital, KYEosinophils/100 WBC (Bld)5 %High1 - 4 %[facility], [place] Erythrocyte distribution width (RBC) [Ratio]15.0 %High11.8 - 14.4 %[facility], HIHematocrit (Bld) [Volume fraction]42.5 %36.3 - 47.1 %[facility], [place] Hemoglobin (Bld) [Mass/Vol]13.6 g/dL11.9 - 15.1 g/dLPremier Health, HIImmature granulocytes (Bld) [#/Vol]1 %Fxrg4XqpihPremier Health, HIImmature granulocytes (Bld) [#/Vol]0.08 10*3/[facility], HIInterpretation and review of laboratory resultsAbnormalPremier Health, HILymphocytes (Bld) [#/Vol]2.06 10*3/[facility], KYLymphocytes/100 WBC (Bld)12 %Low24 - 43 %[facility], HIMCH (RBC) [Entitic mass]28.6 pg25.2 - 33.5 pgPremier Health, [place] MCHC (RBC) [Mass/Vol]32.0 g/dL28.4 - 34.8 g/dLPremier Health, HIMCV (RBC) [Entitic vol]89.5 fL82.6 - 102.9 fLPremier Health, HIMonocytes (Bld) [#/Vol] 0.75 10*3/[facility], KYMonocytes/100 WBC (Bld)4 %3 - 12 %[facility]- [place], KYPlatelet mean volume (Bld) [Entitic vol]9.8 fL8.1 - 13.5 fLMercy Health- [place], KYPlatelets (Bld) [#/Vol]NOT REPORTEDMercy Health- [place], KYPlatelets (Bld) [#/Vol]224 10*3/uLMercy Health- [place], KYRBC (Bld) [#/Vol]4.75 10*6/uL3.95 - 5.11 m/uLMercy Health- [place], KYRBC morphology finding Nom (Bld)NOT REPORTEDMedina Hospitalcy Health- [place], KYSegmented neutrophils/100 WBC (Bld)78 %High36 - 65 %[facility]- [place], KYSegs Jxianquo67.60HighMercy Health- [place], KYWBC (Bld) [#/Vol]17.4 10*3/uL HighMer Health- [place], KYWBC (Bld) [#/Vol]0.0 10*3/uL0.0 per 100 WBCMedina Hospitalcy Health- [place], KYWBC MorphologyNOT REPORTEDMer Health- [place], KYComprehensive Metabolic Panel w/ Reflex to MGon 25-27-5045Fiaadjf [Mass/Vol]4 g/dL3.5 - 5.2 g/dLMedina Hospitalcy Health- [place], KYAlbumin/Globulin [Mass ratio]1.5 {ratio}[facility]- [place], KYALP [Catalytic activity/Vol]74 U/L35 - 104 U/LMmorrow county hospitaly Health- [place], KYALT [Catalytic activity/Vol]8 U/L5 - 33 U/LMercy Health- [place], KYAnion gap [Moles/Vol]9 mmol/L9 - 17 mmol/LMercy Health- [place], KYAST [Catalytic activity/Vol]11 U/L<32[facility]- [place], KYBilirubin Ql (U)0.24 mg/dLLow0.3 - 1.2 mg/dLMercy Health- [place], KYBun/Cre Hmnnk88Kkjwc Health- [place], KYCalcium [Mass/Vol]8.9 mg/dL8.6 - 10.4 mg/dLMedina Hospitalcy Health- [place], KYChloride [Moles/Vol]99 mmol/L98 - 107 mmol/LMercy Health- [place], [place] CO2 [Moles/Vol]28 mmol/L20 - 31 mmol/LMOhio State Harding Hospital, KYCreatinine [Mass/Vol] 1.27 mg/dLHigh0.5 - 0.9 mg/dLPremier Health, KYGFR Whsxthpz34 mL/min Low>60[facility], KYGFR Non- Pflhifzx94 mL/minLow>60[facility], KYGlucose [Mass/Vol]127 mg/fPHfvf54 - 99 mg/dLPremier Health, KYPotassium [Moles/Vol]4.0 mmol/L3.7 - 5.3 mmol/LMOhio State Harding Hospital, KYProtein [Mass/Vol]6.7 g/dL6.4 - 8.3 g/dLPremier Health, KYSodium [Moles/Vol]136 mmol/L135 - 144 mmol/LMOhio State Harding Hospital, KYUrea nitrogen [Mass/Vol]25 mg/dLHigh8 - 23 mg/dLPremier Health, KYMetabolic Panelon 74-75-0936PSW/1.73 sq M predicted among non- blacks MDRD (S/P/Bld) [Vol rate/Area][place], KYComment on above: Average GFR for 60-69 years old: 85 mL/min/1.73sq m Chronic Kidney Disease: <60 mL/min/1.73sq m Kidney failure: <15 mL/min/1.73sq m eGFR calculated using average adult body mass. Additional eGFR calculator available at: http://www.Oriense.[employer]/multiple_crcl_2011.htm Stage 1: Some kidney damage normal GFR Stage 2: Mild kidney damage GFR 60-89 Stage 3: Moderate kidney damage GFR 30-59 Stage 4: Severe kidney damage GFR 15-29 Stage 5: Severe kidney damage GFR <15 ESRD - chronic treatment by dialysis or transplant Otheron 87-52-6200Rxpydzlijlyfpc and review of laboratory resultsAbnormalCincinnati, KYProtime-INRon 95-89-1350ZKR Coag (PPP) [Relative time]0.9 {INR} [place], KYComment on above: Non-therapeutic Range: INR = 0.9-1.2 Therapeutic Range: Moderate Anticoagulant Intensity: INR = 2.0-3.0 High Anticoagulant Intensity: INR = 2.5-3.5 PT Coag (PPP) [Time]12.1 sMOhio State Harding Hospital, CARLOSSedimentation Rateon 98-47-1501Mfd Rate8 mm0 - 20 mmPremier Health, CARLOSTroponinon 22-61-3052Hsdzbrdkhnglqo and review of laboratory resultsAbnormalPremier Health, Citlalyoponin I.cardiac [Mass/Vol]NOT REPORTEDPremier Health, Citlalyoponin T.cardiac [Mass/Vol]NOT REPORTED<0.03 ng/mLPremier Health, Citlalyoponin, High Ckdrtbqasuo85 ng/LHigh0 - 14 ng/LMOhio State Harding Hospital, CARLOSComment on above: High Sensitivity Troponin values cannot be compared with other Troponin methodologies. Patients with high levels of Biotin oral intake (i.e >5mg/day) may have falsely decreased Troponin levels. Samples collected within 8 hours of biotin intake may require additional information for diagnosis. Troponin I.cardiac [Mass/Vol]NOT REPORTEDPremier Health, Adriananin T.cardiac [Mass/Vol]NOT REPORTED<0.03 ng/mLPremier Health, Citlalyoponin, High Sensitivity 18 ng/LHigh0 - 14 ng/LMOhio State Harding Hospital, CARLOSComment on above: High Sensitivity Troponin values cannot be compared with other Troponin methodologies. Patients with high levels of Biotin oral intake (i.e >5mg/day) may have falsely decreased Troponin levels. Samples collected within 8 hours of biotin intake may require additional information for diagnosis. XR CHEST (2 VW)on 41-10-9577Qf focal consolidation. Mild increased interstitial opacities which are unchanged and could be related to an atypical infection versus chronic changes.[facility], [place], [place] Incoming Radiant Results From [email or web address]/[facility] - 03/21/2020 3:01 PM EST EXAMINATION: 2 XRAY VIEWS OF THE CHEST 03/21/2020 2:29 pm COMPARISON: 03/17/2020 HISTORY: ORDERING SYSTEM PROVIDED HISTORY: palpitations TECHNOLOGIST PROVIDED HISTORY: Palpitations FINDINGS: No focal consolidation. Cardiomegaly. Mild prominence of the main pulmonary artery which can be seen with pulmonary hypertension. No pulmonary edema. Mild interstitial prominence is unchanged. IMPRESSION: No focal consolidation. Mild increased interstitial opacities which are unchanged and could be related to an atypical infection versus chronic changes. [facility], KYEXAMINATION: 2 XRAY VIEWS OF THE CHEST 03/21/2020 2:29 pm COMPARISON: 03/17/2020 HISTORY: ORDERING SYSTEM PROVIDED HISTORY: palpitations TECHNOLOGIST PROVIDED HISTORY: Palpitations FINDINGS: No focalconsolidation. Cardiomegaly. Mild prominence of the main pulmonary artery which can be seen with pulmonary hypertension. No pulmonary edema. Mild interstitial prominence is unchanged.[email or web address] J. SITEMAN CAN[facility]ER [facility], KYXR HIP LEFT (2-3 VIEWS)on 18-30-5349Fxm, [facility] Incoming Radiant Results From [email or web address]/[facility] - 03/21/2020 2:51 PM EST EXAMINATION: TWO XRAY VIEWS OF THE LEFT HIP 03/21/2020 2:30 pm COMPARISON: Pelvis 02/12/2020 HISTORY: ORDERING SYSTEM PROVIDED HISTORY: pain TECHNOLOGIST PROVIDED HISTORY: X-ray injured hip and pelvis - add femur if pain and/or swelling is distal to the hip pain FINDINGS: No evidence for acute fracture or dislocation. Mild joint space narrowing. No aggressive lytic or blastic lesions. Multiple surgical clips from vascular surgery noted in the left upper thigh. IMPRESSION: No acute osseous abnormality. [facility] HospitalSeem[facility] [place], KYEXAMINATION: TWO XRAY VIEWS OF THE LEFT HIP 03/21/2020 2:30 pm COMPARISON: Pelvis 02/12/2020 HISTORY: ORDERING SYSTEM PROVIDED HISTORY: pain TECHNOLOGIST PROVIDED HISTORY: X-ray injured hip and pelvis - add femur if pain and/or swelling is distal to the hip pain FINDINGS: No evidence for acute fract ure or dislocation. Mild joint space narrowing. No aggressive lytic or blastic lesions. Multiple surgical clips from vascular surgery noted in the left upper thigh.[place], KYNo acute osseous abnormality.[facility] [employer] TechnologiesALVIN J. SITEMAN [facility]ER [facility], KYCBCon 20-53-6208Hafjoolocmh distribution width (RBC) [Ratio]14.9 %High11.8 - 14.4 % [facility] [place], KYHematocrit (Bld) [Volume fraction]44.4 %36.3 - 47.1 %[facility] [employer] TechnologiesALVIN J. SITEM[facility]ER [facility], KYHemoglobin (Bld) [Mass/Vol]14.0 g/dL11.9 - 15.1 g/dLMerQuincy Valley Medical Center- [place], KYInterpretation and review of laboratory resultsAbnormalKettering Health Miamisburg- [place], KYMCH (RBC) [Entitic mass]27.3 pg25.2 - 33.5 pgKettering Health Miamisburg- [place], KYMCHC (RBC) [Mass/Vol]31.5 g/dL28.4 - 34.8 g/dLKettering Health Miamisburg- [place], KYMCV (RBC) [Entitic vol] 86.5 fL82.6 - 102.9 fLKettering [facility] [place], KYPlatelet mean volume (Bld) [Entitic vol]9.6 fL8.1 - 13.5 fLKettering [facility] [place]- [place], KYPlatelets (Bld) [#/Vol]219 10*3/uL [facility] [place], KYRBC (Bld) [#/Vol]5.13 10*6/uLHigh3.95 - 5.11 m/uLKettering [facility] [place]- [place], KYWBC (Bld) [#/Vol]0.0 10*3/uL0.0 per 100 WBCKettering Health [place]- [place], KYWBC (Bld) [#/Vol]14.4 10*3/uLHighKettering Health [place]- [place], KYComprehensive Metabolic Panel w/ Reflex to MGon [id number] [Mass/Vol]3.5 g/dL3.5 - 5.2 g/dLKettering Health [place]- [place], KYAlbumin/Globulin [Mass ratio]1.4 {ratio}[facility] [place], KYALP [Catalytic activity/Vol]72 U/L35 - 104 U/[address] [facility]- [place], KYALT [Catalytic activity/Vol]7 U/L5 - 33 U/LMad[facility] [place], KYAnion gap [Moles/Vol]10 mmol/L9 - 17 mmol/LMadena [facility]- [place], KYAST [Catalytic activity/Vol]11 U/L<32[facility] [place] [place], KYBilirubin Ql (U)0.19 mg/dLLow0.3 - 1.2 mg/dLKettering Health [place]- [place], [place] Bun/Cre RatioNOT REPORTEDKettering Health [place]- [place], KYCalcium [Mass/Vol]8.6 mg/dL8.6 - 10.4 mg/dLKettering Health [place]- [place], KYChloride [Moles/Vol]103 mmol/L98 - 107 mmol/[facility], KYCO2 [Moles/Vol]24 mmol/L20 - 31 mmol/[facility], [place] Creatinine [Mass/Vol]1.04 mg/dLHigh0.5 - 0.9 mg/dLPremier Health, KYGFR >60>60 mL/minPremier Health, KYGFR Non- Kubtkyxl92 mL/minLow>60[facility], KYGFR/1.73 sq M predicted among non-blacks MDRD (S/P/Bld) [Vol rate/Area]NOT REPORTEDPremier Health, KYGFR/1.73 sq M predicted among non-blacks MDRD (S/P/Bld) [Vol rate/Area][facility], KYComment on above:Average GFR for 60-69 years old: 85 mL/min/1.73sq m Chronic Kidney Disease: <60 mL/min/1.73sq m Kidney failure: <15 mL/min/1.73sq m eGFR calculated using average adult body mass. Additional eGFR calculator available at: http://www.SynapDx/multiple_crcl_2012.htm Glucose [Mass/Vol]101 mg/lFWpet89 - 99 mg/dLPremier Health, KYInterpretation and review of laboratory resultsAbnoNewark Hospital, KYPotassium [Moles/Vol]4.3 mmol/L3.7 - 5.3 mmol/[facility], KYProtein [Mass/Vol]6.0 g/dLLow6.4 - 8.3 g/dLPremier Health, KYSodium [Moles/Vol]137 mmol/L135 - 144 mmol/[facility], KYUrea nitrogen [Mass/Vol]20 mg/dL8 - 23 mg/dLPremier Health, KYPOC Glucose Fingerstickon 80-36-6245Akohqqj [Mass/Vol]102 mg/dL65 - 105 mg/dLPremier Health, KYGlucose [Mass/Vol]107 mg/cNMbma32 - 105 mg/dL [facility], KYInterpretation and review of laboratory resultsAbnoNewark Hospital, KYBasi Metabolic Panel w/ Reflex to MGon [id number] gap [Moles/Vol]12 mmol/L9 - 17 mmol/LMmorrow county hospitaly [facility]- [place], KYBun/Cre Bfhpj63Zzbyj [facility]- [place], KYCalcium [Mass/Vol]9.5 mg/dL8.6 - 10.4 mg/dLDiley Ridge [facility]- [place], [place] Chloride [Moles/Vol]103 mmol/L98 - 107 mmol/LMmorrow county hospitaly [facility]- [place], KYCO2 [Moles/Vol] 24 mmol/L20 - 31 mmol/LMmorrow county hospitaly [facility]- [place], KYCreatinine [Mass/Vol]1.12 mg/dLHigh 0.5 - 0.9 mg/dLK[facility]tering [facility] [place]- [place], KYGFR >60>60 mL/minDiley Ridge [facility]- [place], KYGFR Non- Euuaoitc18 mL/minLow>60[facility]- [place], KYGlucose [Mass/Vol]95 mg/dL70 - 99 mg/dLK[facility]tering [facility] [place]- [place], KYInterpretation and review of laboratory resultsAbnormalK[facility]tering Health [place]- [place], KYPotassium [Moles/Vol]5.1 mmol/L 3.7 - 5.3 mmol/LMadena [facility] medical [facility]- [place], KYSodium [Moles/Vol]139 mmol/L135 - 144 mmol/L [facility] [place], KYUrea nitrogen [Mass/Vol]17 mg/dL8 - 23 mg/dLKettering Health [place]- [place], KYCBCon 10-11-2834Xjvufdgipkj distribution width (RBC) [Ratio]15.1 %High11.8 - 14.4 %[facility] [place] [place], KYHematocrit (Bld) [Volume fraction]48.7 %High36.3 - 47.1 %[facility] [place], KYHemoglobin (Bld) [Mass/Vol]15.3 g/wPGilj28.9 - 15.1 g/dLKettering Health [place]- [place], KYInterpretation and review of laboratory resultsAbnormal [facility] [place]- [place], KYMCH (RBC) [Entitic mass]28.1 pg25.2 - 33.5 pgKettering Health [place]- [place], KYMCHC (RBC) [Mass/Vol]31.4 g/dL28.4 - 34.8 g/dLPremier Health, HIMCV (RBC) [Entitic vol]89.4 fL82.6 - 102.9 fLPremier Health, HIPlatelet mean volume (Bld) [Entitic vol]9.4 fL8.1 - 13.5 fLPremier Health, HIPlatelets (Bld) [#/Vol]282 10*3/uLPremier Health, KYRBC (Bld) [#/Vol]5.45 10*6/uLHigh3.95 - 5.11 m/[facility], KYWBC (Bld) [#/Vol]11.1 10*3/uLPremier Health, [place] WBC (Bld) [#/Vol]0.0 10*3/uL0.0 per 100 WBCPremier Health, HIDiagnostic Cardiac Postie Procedureon [id number], Mhpn Incoming Cardio Results From [facility]/ - 03/18/2020 2:16 PM EST Cardiac Interventional Report Demographics Patient SHER Phillips Date of Study 03/18/2020 Name Date of 1960 Gender Female Age 59 year(s) Race Room [id number]^MARTINEZ^HEMINDERMEET Height: 61 inch, 154.94 Number cm Corporate [id number] Weight: 170 pounds, 77.1 ID # kg Patient [id number] BSA: 1.76 m^2 BMI: 32.12 Acct # kg/m^2 MR # [id number] Performing Ema Miller Physician Referring # Physician Assisting Physician Additional Comments H&P reviewed and patient examined by performing physician prior to the procedure on 03/18/2020 No changes noted. If changes, see note below. Mallampati Classification 2 / ASA Classification III : per Physician . Procedure Procedure Type: PCI procedure: PTCA / Drug Eluting Stent:, RCA and / or branches Complications: - No complication Indications: - Unstable angina - Previous ME - Previous stent placement - Coronary lesion - more than 50% - Coronary risk factors - PVD Conclusions Procedure Summary Successful PTCA -SPARKLE mid-distal RCA Residual moderate disease in LAD and LCX (50-60% stenosis) Recommendations Post stent protocol Risk factors modification If continue symptomatic treating LCX and LAD lesions are next step Signature Angiographic Findings Cardiac Arteries and Lesion Findings RCA: Lesion on Mid RCA: Distal subsection.95% stenosis 12 mm length reduced to 0%. Pre procedure WILLIE II flow was noted. Post Procedure WILLIE III flow was present. Good runoff was present. The lesion was diagnosed as High Risk (C). Devices used - Luge Wire 182 cm. Number of passes: 1. - Trek Balloon 2.5mm x 12mm. 6 inflation(s) to a max pressure of: 17 guilherme. - Xience Yoko 3.0 x 18 SPARKLE. 4 inflation(s) to a max pressure of: 16 guilherme. Coronary Tree Dominance: Right Procedure Data Procedure Start Time: 03/18/2020 13:44. Procedure End Time: 03/18/2020 14:13. The procedure was explained in detail to the patient. Risks, complications and alternative treatments were reviewed. Written consent was obtained. Interventional Cath Status: Urgent Entry Locations - Retrograde Percutaneous access was performed through the Left Radial artery. A 5 Fr sheath was inserted. Hemostasis was successfully obtained using Vasc Band. Diagnostic catheters: - 6F Guide Catheter FR 4was used for Right coronary angiography. Procedure Medications: - Versed I.V. 1 mg. - Fentanyl I.V. 25 mcg. - Versed I.V. 1 mg. - Fentanyl I.V. 25 mcg. - Lidocaine HCl 1% 10mg/ml S.Q. 15 ml. - Fentanyl I.V. 50 mcg. - Lidocaine HCl 1% 10mg/ml S.Q. 5 ml. - Nitroglycerin I.A. 400 mcg. - Verapamil I.A. 2.5 mg. - Heparin I.A. 2000 units. - Heparin I.V. bolus 32569 units. - Nitroglycerin I.C. 200 mcg. - Plavix P.O. 600 mg. Contrast Material: - Optiray 37638 ml Fluoroscopy Time: Diagnostic: 5:24 minutes. Total: 5:24 minutes. Estimated Blood Loss: 5 ml. Medical History History of Disease +---------+ + + !Diagnosis!Date !Comments ! +---------+ + + !Other !06/11/2013!Right to left fem-to-fem bypass ! +---------+ + + Allergies - *Unlisted allergy. (ceclor simvastatin) - Codeine allergy. - *Unlisted allergy. (simvastatin) Risk Factors The patient risk factors include:previous vascular surgery, peripheral arterial disease, obesity, physical activity, treated hypercholesterolemia, treated hypertension, family history of premature CAD, orally-treated diabetes mellitus, chronic lung disease, last creatinine: 1.1 mg/dl, creatinine clearance: 66.21 ml/min, dyslipidemia, Current - Every day tobacco use, previous femoral procedure and prior ME. Admission Data Admission Date: 03/18/2020 Admission Status: Outpatient -The patient's anginal syndrome was assessed as CCS III according to the Nauruan clinical classification. Hemodynamics Condition: Baseline Room Air Estimated: 183.40Heart Rate: 95 bpm Pressure +-----+ + !Site !Pressure ! +-----+ + !AO !173/173 (116) ! +-----+ + !AO !170/65 (122) ! +-----+ + Shunts Oxygen Values O2 Lzidlwas542.08O2 Rmipsubxcok644.4 [employer]- [place], KYCardiac Interventional Report Demographics Patient SHER Phillips Date of Study 03/18/2020 Name Date of 1960 Gender Female Age 59 year(s) Race Room [id number]^MARTINEZ^HEMINDERMEETHeight: 61 inch, 154.94 Number cm Corporate [id number] Weight: 170 pounds, 77.1 ID # kg Patient [id number] BSA: 1.76 m^2 BMI: 32.12 Acct # kg/m^2 MR # [id number] Ema Pineda Physician Referring # Physician Assisting Physician Additional Comments H&P reviewed and patient examined by performing physician prior to the procedure on 03/18/2020 No changes noted. If changes, see note below. Mallampati Classification 2 / ASA Classification III : per Physician . Procedure Procedure Type: PCI procedure: PTCA / Drug Eluting Stent:, RCA and / or branches Complications: - No complication Indications: - Unstable angina - Previous ME - Previous stent placement - Coronary lesion - more than 50% - Coronary risk factors - PVD Conclusions Procedure Summary Suc cessful PTCA -SPARKLE mid-distal RCA Residual moderate disease in LAD and LCX (50- 60% stenosis) Recommendations Post stent protocol Risk factors modification If continue symptomatic treating LCX and LAD lesions are next step Signature Angiographic Findings Cardiac Arteries and Lesion FindingsRCA: Lesion on Mid RCA: Distal subsection.95% stenosis 12 mm length reduced to 0%. Pre procedure WILLIE II flow was noted. Post Procedure WILLIE III flow was present. Good runoff was present. The lesion was diagnosed as High Risk (C). Devices used - Luge Wire 182 cm. Number of passes: 1. - Trek Balloon2.5mm x 12mm. 6 inflation(s) to a max pressure of: 17 guilherme. - Xience Yoko 3.0 x 18 SPARKLE. 4 inflation(s) to a max pressure of: 16 guilherme. Coronary Tree Dominance: Right Procedure Data Procedure Start Time: 03/18/2020 13:44. Procedure End Time: 03/18/2020 14:13. The procedure was explained in detail to the patient. Risks, complications and alternative treatments were reviewed. Written consent was obtained. Interventional Cath Status: Urgent Entry Locations - Retrograde Percutaneous access was performed through the Left Radial artery. A 5 Fr sheath was inserted. Hemostasis was successfully obtainedusing Vasc Band. Diagnostic catheters: - 6F Guide Catheter FR 4was used for Right coronary angiography. Procedure Medications: - Versed I.V. 1 mg. - Fentanyl I.V. 25 mcg. - Versed I.V. 1 mg. - Fentanyl I.V. 25 mcg. - Lidocaine HCl 1% 10mg/ml S.Q. 15 ml. - Fentanyl I.V. 50 mcg. - Lidocaine HCl 1% 10mg/ml S.Q. 5 ml. - Nitroglycerin I.A. 400 mcg. - Verapamil I.A. 2.5 mg. - Heparin I.A. 2000 units. -Heparin I.V. bolus 21107 units. - Nitroglycerin I.C. 200 mcg. - Plavix P.O. 600 mg. Contrast Material: - Optiray 28638 ml Fluoroscopy Time: Diagnostic: 5:24 minutes. Total: 5:24 minutes. Estimated Blood Loss: 5 ml. Medical History History of Disease +---------+ + + !Diagnosis!Date !Comments ! +---------+ + + !Other !06/11/2013!Right to left fem-to-fem bypass ! +---------+---- ------+ + Allergies - *Unlisted allergy. (ceclor simvastatin) - Codeine allergy. - *Unlisted allergy. (simvastatin) Risk Factors The patient risk factors include:previous vascular surgery, peripheral arterial disease, obesity, physical activity, treated hypercholesterolemia, treated hypertension, family history of premature CAD, orally-treated diabetes mellitus, chronic lung disease, last creatinine: 1.1 mg/dl, creatinine clearance: 66.21 ml/min, dyslipidemia, Current - Every day tobacco use, previous femoral procedure and prior ME. Admission Data Admission Date: 03/18/2020 Admission Status: Outpatient -The patient's anginal syndrome was assessed as CCS III according to the Nauruan clinical classification. Hemodynamics Condition: Baseline Room Air Estimated: 183.40Heart Rate: 95 bpm Pressure +-----+ + !Site !Pressure ! +-----+ + !AO !173/173 (116) ! +-----+ + !AO !170/65 (122) ! +-----+ + Shunts Oxygen Values O2 Hzqpxtoh895.08O2 Smkrqtkepqg132.4[facility] [employer] Metabolic Panelon 50-05-4501MLI/1.73 sq M predicted among non-blacks MDRD (S/P/Bld) [Vol rate/Area][facility] on above:Average GFR for 60-69 years old: 85 mL/min/1.73sq m Chronic Kidney Disease: <60 mL/min/1.73sq m Kidney failure: <15 mL/min/1.73sq m eGFR calculated using average adult body mass. Additional eGFR calculator available at: http://www.SynapDx/multiple_crcl_2012.htm Stage 1: Some kidney damage normal GFR Stage 2: Mild kidney damage GFR 60-89 Stage 3: Moderate kidney damage GFR 30-59 Stage 4: Severe kidney damage GFR 15-29 Stage 5: Severe kidney damage GFR <15 ESRD - chronic treatment by dialysis or transplant POC Glucose Fingerstickon 96-11-6959Hhlxljs [Mass/Vol]106 mg/nPRthx17 - 105 mg/dLPremier Health, KYInterpretation and review of laboratory resultsAbnormal [place], KYGlucose [Mass/Vol]216 mg/mDQqcl86 - 105 mg/dLPremier Health, HIInterpretation and review of laboratory resultsAbnormBluffton Hospital, HITroponinon [id number] I.cardiac [Mass/Vol]NOT REPORTEDCincinnati, KYTroponin T.cardiac [Mass/Vol]NOT REPORTED<0.03 ng/mLPremier Health, [place] Troponin, High Hzoyuipkgel57 ng/L0 - 14 ng/LMGreater Regional Health on above: High Sensitivity Troponin values cannot be compared with other Troponin methodologies. Patients with high levels of Biotin oral intake (i.e >5mg/day) may have falsely decreased Troponin levels. Samples collected within 8 hours of biotin intake may require additional information for diagnosis. Brain Natriuretic Peptideon 54-29-4879Bewelwmzrss peptide B (Bld) [Mass/Vol]1060 pg/mLHigh<300Robert [facility] on above:Pro-BNP results cannot be compared to BNP results.Natriuretic peptide B (Bld) [Mass/Vol]Pro-BNP Reference Range:[facility] on above: Rule Out: <300 [place] Zone: Age <50 300-450 Age 50-75 300-900 Age >75 300-1800 Usually represents mild to moderate HF but other cardiopulmonary causes cannot be ruled out. Rule In: Age <50 >450 Age 50-75 >900 Age >75 >1800 CBCon 01-32-0442Rrtbmsmrhpl distribution width (RBC) [Ratio]14.8 %High11.8 - 14.4 %[facility], HIHematocrit (Bld) [Volume fraction]43.9 %36.3 - 47.1 % [facility], HIHemoglobin (Bld) [Mass/Vol]13.9 g/dL11.9 - 15.1 g/dLPremier Health, HIInterpretation and review of laboratory resultsAbnormalPremier Health, HIMCH (RBC) [Entitic mass]28.4 pg25.2 - 33.5 pgPremier Health, [place] MCHC (RBC) [Mass/Vol]31.7 g/dL28.4 - 34.8 g/dLPremier Health, HIMCV (RBC) [Entitic vol]89.8 fL82.6 - 102.9 fLPremier Health, HIPlatelet mean volume (Bld) [Entitic vol]9.5 fL8.1 - 13.5 fLPremier Health, HIPlatelets (Bld) [#/Vol]300 10*3/uLPremier Health, KYRBC (Bld) [#/Vol]4.89 10*6/uL3.95 - 5.11 m/[facility], HIWBC (Bld) [#/Vol]0.0 10*3/uL0.0 per 100 WBCPremier Health, HIWBC (Bld) [#/Vol]11.6 10*3/uLHighPremier Health, HICardiac Catheterizationon 85-86-7604Tkjdfpt Diagnostic Report Demographics Patient SHER Phillips Date of Study 03/17/2020 Name Dateof 1960 Gender Female Age 59 year(s) Race Room [id number]^SHARRI Height: 61 inch, 154.94 cm Number Corporate [id number] Weight: 178 pounds, 80.7 kg ID # Patient [id number] BSA: 1.8 m^2 BMI: 33.62 Acct # kg/m^2 MR # [id number] Performing Physician Zach Stephens Referring Physician # Assisting Physician Additional Comments H&P reviewed andpatient examined by performing physician prior to the procedure on 03/17/20 at 1625 No changes noted . If changes, see note below. Mallampati Classification 2 / ASA Classification II : per Physician .Patient medications reviewed by Physician prior to procedure. Procedure Procedure Type: Diagnostic procedure: Lt Heart, Coronary Angio, LV pressure Complications: - No complication Conclusions Procedure Summary Severe single vessel disease involving the right coronary artery. Moderate 2 vessel disease in the Circumflex and D1 branch of the LAD. Normal left ventricular end diastolic pressure. (LVEDP). Recommendations Consult to interventional cardiology for likely angioplasty and/or stenting of the patients severe stenosis. Signature Angiographic Findings Cardiac Arteries and Lesion Findings LMCA: Normal 0% stenosis. LAD: Mild irregularities 30-40%. Lesion on 1st Diag: Mid subsection.50% stenosis. LCx: Lesion on Mid CX: Mid subsection.50% stenosis. RCA: Lesion on Mid RCA: Distal subsection.80% stenosis. Coronary Tree Dominance: Right LV function assessed as:Normal. Ejection Fraction + + + !Method !EF% ! +-- + + !Echocardiography !65 ! + + + Ventriculography Findings: Normal left ventricular end diastolic pressure (LVEDP) with no significant aortic valve gradientseen on pull-back across the aortic valve. Procedure Data Procedure Start Time: 03/17/2020 17:16. Procedure End Time: 03/17/2020 17:31. The procedure was explained in detail to the patient. Risks, complications and alternative treatments were reviewed. Written consent was obtained. Diagnostic Cath Status: Urgent Entry Locations - Retrograde Percutaneous access was performed through the Left Radial artery. A 5 Fr sheath was inserted. Hemostasis was successfully obtained using Pressure Dressing. Procedure Medications: - Lidocaine HCl 1% 10mg/ml S.Q. 3 ml. - Nitroglycerin S.Q. 100 mcg. - HeparinI.V. bolus 5000 units. Catheters and Wires: - 5F Catheter JL4 was used for LV Pressure. - 6F Catheter Debbie Radial 100cm was used for Right coronary angiography. - 5F Catheter JL4 was used for Right coronary angiography. Contrast Material: - Isovue 42419 ml Fluoroscopy Time: Diagnostic: 2:01 minutes. Total: 2:01 minutes. Estimated Blood Loss: 5 ml. Medical History Performed Procedures and Imaging Results - Stress testing with SPECT MPIwas performed. Results were: Positive. Risk/Extent of ischemia was: Intermediate risk. History of Disease +---------+ + + !Diagnosis!Date !Comments ! +---------+ + + !Other !06/11/2013!Right to left fem-to-fem bypass ! +---------+ + + Allergies - *Unlisted:(ceclor simvastatin). - Codeine. - *Unlisted:(ceclor). - *Unlisted:(Zithromax). - *Unlisted:(simvastatin). Risk FactorsThe patient risk factors include:peripheral arterial disease, obesity, physical activity, treated hypercholesterolemia, treated hypertension, orally-treated diabetes mellitus, chronic lung disease, last creatinine: 1.4 mg/dl, creatinine clearance: 54.44 ml/min, dyslipidemia, Current - Every day tobacco use, prior heart failure and previous femoral procedure. Admission Data Admission Date: 03/17/2020 Pre Admission Medications + +------+ + + + + !Medication !Dosage!Times Per Day!Start date!Stop date !Comments ! + +------+ + + + + !Clopidogrel (Plavix)! ! ! ! ! ! + ----+------+ + + + + -The patient shows CHF symptoms of LAMAS.-The patient's anginal syndrome was assessed as CCS IV according to the Nauruan clinical classification. Hemodynamics Condition: Baseline Room Air Estimated: 158.12Heart Rate: 52 bpm Pressure +-----+ + !Site !Pressure ! +-----+----- + !AO !148/57 (92) ! +-----+--------- + !AO !151/55 (90) ! +-----+ + !LV !159/1 ,14 ! +-----+ + !LV !149/0 ,11 ! +-----+ + Valve Gradients and Areas + +---------+----- ----+---------+ +---------+ + !Valve !Peak !Mean !Area !Index !Flow !Source ! +- +---------+---------+---------+ +---------+ + !Aortic !2 !16 ! ! ! ! ! + +---------+---------+---------+ +---------+ + !Aortic !2 !16 ! ! ! !! + +---------+---------+---------+ +---------+ + Shunts Oxygen ValuesO2 Erondbmx491.04O2 Ykxvvgnyglt383.12[facility] [place] [place], [place] Lonnie, Mhpn Incoming Cardio Results From [facility]/Ge - 03/17/2020 6:01 PM EST Cardiac Diagnostic Report Demographics Patient SHER Phillips Date of Study 03/17/2020 Name Date of 1960 Gender Female Age 59 year(s) Race Room [id number]^SHARRI Height: 61 inch, 154.94 cm Number Corporate [id number] Weight: 178 pounds, 80.7 kg ID # Patient [id number] BSA: 1.8 m^2 BMI: 33.62 Acct # kg/m^2 MR # [id number] Performing Physician Zach Stephens Referring Physician # Assisting Physician Additional Comments H&P reviewed and patient examined by performing physician prior to the procedure on 03/17/20 at 1625 No changes noted. If changes, see note below. Mallampati Classification 2 / ASA Classification II : per Physician . Patient medications reviewed by Physician prior to procedure. Procedure Procedure Type: Diagnostic procedure: Lt Heart, Coronary Angio, LV pressure Complications: - No complication Conclusions Procedure Summary Severe single vessel disease involving the right coronary artery. Moderate 2 vessel disease in the Circumflex and D1 branch of the LAD. Normal left ventricular end diastolic pressure. (LVEDP). Recommendations Consult to interventional cardiology for likely angioplasty and/or stenting of the patients severe stenosis. Signature Angiographic Findings Cardiac Arteries and Lesion Findings LMCA: Normal 0% stenosis. LAD: Mild irregularities 30-40%. Lesion on 1st Diag: Mid subsection.50% stenosis. LCx: Lesion on Mid CX: Mid subsection.50% stenosis. RCA: Lesion on Mid RCA: Distal subsection.80% stenosis. Coronary Tree Dominance: Right LV function assessed as:Normal. Ejection Fraction + + + !Method !EF% ! + + + !Echocardiography !65 ! + + + Ventriculography Findings: Normal left ventricular end diastolic pressure (LVEDP) with no significant aortic valve gradient seen on pull-back across the aortic valve. Procedure Data Procedure Start Time: 03/17/2020 17:16. Procedure End Time: 03/17/2020 17:31. The procedure was explained in detail to the patient. Risks, complications and alternative treatments were reviewed. Written consent was obtained. Diagnostic Cath Status: Urgent Entry Locations - Retrograde Percutaneous access was performed through the Left Radial artery. A 5 Fr sheath was inserted. Hemostasis was successfully obtained using Pressure Dressing. Procedure Medications: - Lidocaine HCl 1% 10mg/ml S.Q. 3 ml. - Nitroglycerin S.Q. 100 mcg. - Heparin I.V. bolus 5000 units. Catheters and Wires: - 5F Catheter JL4 was used for LV Pressure. - 6F Catheter Debbie Radial 100cm was used for Right coronary angiography. - 5F Catheter JL4 was used for Right coronary angiography. Contrast Material: - Isovue 76842 ml Fluoroscopy Time: Diagnostic: 2:01 minutes. Total: 2:01 minutes. Estimated Blood Loss: 5 ml. Medical History Performed Procedures and Imaging Results - Stress testing with SPECT MPIwas performed. Results were: Positive. Risk/Extent of ischemia was: Intermediate risk. History of Disease +---------+ + + !Diagnosis!Date !Comments ! +---------+ + + !Other !06/11/2013!Right to left fem-to-fem bypass ! +---------+ + + Allergies - *Unlisted:(ceclor simvastatin). - Codeine. - *Unlisted:(ceclor). - *Unlisted:(Zithromax). - *Unlisted:(simvastatin). Risk Factors The patient risk factors include:peripheral arterial disease, obesity, physical activity, treated hypercholesterolemia, treated hypertension, orally-treated diabetes mellitus, chronic lung disease, last creatinine: 1.4 mg/dl, creatinine clearance: 54.44 ml/min, dyslipidemia, Current - Every day tobacco use, prior heart failure and previous femoral procedure. Admission Data Admission Date: 03/17/2020 Pre Admission Medications + +------+ + + + + !Medication !Dosage!Times Per Day!Start date!Stop date !Comments ! + +------+ + + + + !Clopidogrel (Plavix)! ! ! ! ! ! + +------+ + + + + -The patient shows CHF symptoms of LAMAS. -The patient's anginal syndrome was assessed as CCS IV according to the Nauruan clinical classification. Hemodynamics Condition: Baseline Room Air Estimated: 158.12Heart Rate: 52 bpm Pressure +-----+ + !Site !Pressure ! +-----+ + !AO !148/57 (92) ! +-----+ + !AO !151/55 (90) ! +-----+ + !LV !159/1 ,14 ! +-----+ + !LV !149/0 ,11 ! +-----+ + Valve Gradients and Areas + +---------+---------+---------+ +---------+ + !Valve !Peak !Mean !Area !Index !Flow !Source ! + +---------+---------+---------+ +---------+ + !Aortic !2 !16 ! ! ! ! ! + +---------+---------+---------+ +---------+ + !Aortic !2 !16 ! ! ! ! ! + +---------+---------+---------+ +---------+ + Shunts Oxygen Values O2 Hvuhmlvv589.04O2 Qhgsgjcnrjq635.12 [facility] [place], KYComprehensive Metabolic Panelon [id number] [Mass/Vol] 3.8 g/dL3.5 - 5.2 g/dLMercy Health- [place], KYAlbumin/Globulin [Mass ratio]1.5 {ratio}[facility]- [place], KYALP [Catalytic activity/Vol]69 U/L35 - 104 U/LMercy Health- [place], KYALT [Catalytic activity/Vol]7 U/L5 - 33 U/LMercy Health- [place], [place] Anion gap [Moles/Vol]6 mmol/LLow9 - 17 mmol/LMercy Health- [place], KYAST [Catalytic activity/Vol]11 U/L<32[facility]- [place], KYBilirubin Ql (U)0.19 mg/dLLow0.3 - 1.2 mg/dLMercy Health- [place], KYBun/Cre Ckeuu38Ocryp Health- [place], KYCalcium [Mass/Vol] 8.9 mg/dL8.6 - 10.4 mg/dLMercy Health- [place], KYChloride [Moles/Vol]98 mmol/L98 - 107 mmol/LMercy Health- [place], KYCO2 [Moles/Vol]28 mmol/L20 - 31 mmol/LMercy Health- [place], KYCreatinine [Mass/Vol]1.4 mg/dLHigh0.5 - 0.9 mg/dLMercy Health- [place], KYGFR Ygzqqzen21 mL/minLow>60[facility]- [place], KYGFR Non- Ueocsufm49 mL/minLow>60[facility]- [place], KYGlucose [Mass/Vol]174 mg/aKDajv06 - 99 mg/dLMercy Health- [place], KYPotassium [Moles/Vol]4.1 mmol/L3.7 - 5.3 mmol/LMercy Health- [place], KYProtein [Mass/Vol]6.4 g/dL6.4 - 8.3 g/dLMercy Health- [place], [place] Sodium [Moles/Vol]132 mmol/ZUqp519 - 144 mmol/LMercy Health- [place], KYUrea nitrogen [Mass/Vol]22 mg/dL8 - 23 mg/dLCincinnati, KYMetabolic Panelon 03-17-2020 GFR/1.73 sq M predicted among non-blacks MDRD (S/P/Bld) [Vol rate/Area][facility] HIComment on above:Stage 1: Some kidney damage normal GFR Stage 2: Mild kidney damage GFR 60-89 Stage 3: Moderate kidney damage GFR 30-59 Stage 4: Severe kidney damage GFR 15-29 Stage 5: Severe kidney damage GFR <15 ESRD - chronic treatment by dialysis or transplant Average GFR for 60-69 years old: 85 mL/min/1.73sq m Chronic Kidney Disease: <60 mL/min/1.73sq m Kidney failure: <15 mL/min/1.73sq m eGFR calculated using average adult body mass. Additional eGFR calculator available at: http://www.SynapDx/multiple_crcl_2012.htm Otheron [id number] and review of laboratory resultsAbnormalPremier HealthCARLOSAronoponifahad [id number] I.cardiac [Mass/Vol]NOT REPORTED [facility] HealthCARLOSRenen T.cardiac [Mass/Vol]NOT REPORTED<0.03 ng/mLPremier HealthCARLOSMaryam, High Sensitivity9 ng/L0 - 14 ng/LMLicking Memorial Hospital CARLOS Comment on above: High Sensitivity Troponin values cannot be compared with other Troponin methodologies. Patients with high levels of Biotin oral intake (i.e >5mg/day) may have falsely decreased Troponin levels. Samples collected within 8 hours of biotin intake may require additional information for diagnosis. Troponin I.cardiac [Mass/Vol]NOT REPORTEDPremier HealthCARLOSTahirnin T.cardiac [Mass/Vol]NOT REPORTED<0.03 ng/mLPremier Health CARLOSTahirnin, High Sensitivity 12 ng/L0 - 14 ng/LMBuckeye, KYComment on above: High Sensitivity Troponin values cannot be compared with other Troponin methodologies. Patients with high levels of Biotin oral intake (i.e >5mg/day) may have falsely decreased Troponin levels. Samples collected within 8 hours of biotin intake may require additional information for diagnosis. XR CHEST PORTABLEon [id number], Mhpn Incoming Radiant Results From [employer]acs - 03/17/2020 1:33 PM EST EXAMINATION: ONE XRAY VIEW OF THE CHEST 03/17/2020 1:07 pm COMPARISON: Chest 03/13/2020 HISTORY: ORDERING SYSTEM PROVIDED HISTORY: sob TECHNOLOGIST PROVIDED HISTORY: sob FINDINGS: Calcifications involving the aorta reflect atherosclerosis. The cardiomediastinal and hilar silhouettes appear otherwise unremarkable. Chronic appearing coarse interstitial densities predominate perihilar regions and lung bases, typical of sequela from smoking or other previous infectious/inflammatory process. The lungs appear otherwise clear. No pleural fluid evident. No pneumothorax is seen. No acute osseous abnormality is identified. IMPRESSION: No definite acute pulmonary disease. Chronic appearing coarse interstitial densities predominate perihilar regions and lung bases, typical of sequela from smoking or other previous infectious/inflammatory process. Calcific atherosclerotic disease aorta. [facility], KYEXAMINATION: ONE XRAY VIEW OF THE CHEST 03/17/2020 1:07 pm COMPARISON: Chest 03/13/2020 HISTORY: ORDERING SYSTEM PROVIDED HISTORY: sob TECHNOLOGIST PROVIDED HISTORY: sob FINDINGS: Calcifications involving the aorta reflect atherosclerosis. The cardiomediastinal and hilar silhouettes appear otherwise unremarkable. Chronic appearing coarse interstitial densities predominate perihilar regions and lung bases, typical of sequela from smoking or other previous infectious/inflammatory process. The lungs appear otherwise clear. No pleural fluid evident. No pneumothorax is seen. No acute osseous abnormality is identified.[facility], KYNo definite acute pulmonary disease. Chronic appearing coarse interstitial densities predominate perihilar regions and lung bases, typical of sequela from smoking or other previous infectious/inflammatory process. Calcific atherosclerotic disease aorta.[facility] Eso TechnologiesALVIN J. [facility], KYBasic Metabolic Panelon [id number] gap [Moles/Vol]9 mmol/L9 - 17 mmol/LMOhio State Harding Hospital, KYBun/Cre Mkgtr07DzklvPremier Health, KYCalcium [Mass/Vol]9.1 mg/dL8.6 - 10.4 mg/dLPremier Health, KYChloride [Moles/Vol]97 mmol/LLow98 - 107 mmol/LMOhio State Harding Hospital, KYCO2 [Moles/Vol]25 mmol/L20 - 31 mmol/[facility] [place], KYCreatinine [Mass/Vol]0.96 mg/dLHigh0.5 - 0.9 mg/dL [facility], KYGFR >60>60 mL/minPremier Health, KYGFR Non- Tleldzxo08 mL/minLow>60[facility], KYGlucose [Mass/Vol]82 mg/dL70 - 99 mg/dLPremier Health, KYInterpretation and review of laboratory resultsAbnoNewark Hospital, KYPotassium [Moles/Vol]4.4 mmol/L3.7 - 5.3 mmol/LMHocking Valley Community Hospital [place], KYSodium [Moles/Vol]131 mmol/KGiv608 - 144 mmol/[facility], KYUrea nitrogen [Mass/Vol]12 mg/dL8 - 23 mg/dLPremier Health, [place] Brain Natriuretic Peptideon [id number] and review of laboratory resultsAbBarnesville Hospital, KYNatriuretic peptide B (Bld) [Mass/Vol]1385 pg/mLHigh<300[facility], KYComment on above:Pro-BNP results cannot be compared to BNP results.Natriuretic peptide B (Bld) [Mass/Vol]Pro-BNP Reference Range:[facility], HIComment on above: Rule Out: <300 [place] Zone: Age <50 300-450 Age 50-75 300-900 Age >75 300-1800 Usually represents mild to moderate HF but other cardiopulmonary causes cannot be ruled out. Rule In: Age <50 >450 Age 50-75 >900 Age >75 >1800 CBC Auto Differentialon [id number] (Bld) [#/Vol]0.09 10*3/[facility], KYBasophils/100 WBC (Bld)1 %0 - 2 %[facility], KYDifferential TypeNOT REPORTEDPremier Health, KYEosinophils (Bld) [#/Vol]0.41 10*3/[facility]- [place], KYEosinophils/100 WBC (Bld)5 %High1 - 4 %[facility], [place] Erythrocyte distribution width (RBC) [Ratio]14.8 %High11.8 - 14.4 %[facility], CARLOSHematocrit (Bld) [Volume fraction]42.3 %36.3 - 47.1 %[facility], [place] Hemoglobin (Bld) [Mass/Vol]13.5 g/dL11.9 - 15.1 g/dLPremier Health, CARLOSImmature granulocytes (Bld) [#/Vol]10*3/uLPremier Health, CARLOSImmature granulocytes (Bld) [#/Vol]0 %0[facility], HIInterpretation and review of laboratory resultsAbnormalPremier Health, CARLOSLymphocytes (Bld) [#/Vol]1.81 10*3/uLPremier Health, CARLOSLymphocytes/100 WBC (Bld)22 %Low24 - 43 %[facility], [facility] (RBC) [Entitic mass]28.1 pg25.2 - 33.5 pgPremier Health, HIMCHC (RBC) [Mass/Vol]31.9 g/dL28.4 - 34.8 g/dLPremier Health, CARLOSMCV (RBC) [Entitic vol] 87.9 fL82.6 - 102.9 fLPremier Health, CARLOSMonocytes (Bld) [#/Vol]0.55 10*3/uL [facility], CARLOSMonocytes/100 WBC (Bld)7 %3 - 12 %[place], [place] Platelet mean volume (Bld) [Entitic vol]9.0 fL8.1 - 13.5 fLCincinnati, [place] Platelets (Bld) [#/Vol]NOT REPORTEDPremier Health, CARLOSPlatelets (Bld) [#/Vol] 240 10*3/uLPremier Health, CARLOSRBC (Bld) [#/Vol]4.81 10*6/uL3.95 - 5.11 m/uL [facility], HIRBC morphology finding Nom (Bld)NOT REPORTEDPrem[facility] Health, HISegmented neutrophils/100 WBC (Bld)65 %36 - 65 %[facility]Select [facility] Absolute5.37[facility] (Bld) [#/Vol]0.0 10*3/uL0.0 per 100 WBCPomerene Hospital (Bld) [#/Vol]8.3 10*3/uLPomerene Hospital MorphologyNOT REPORTEDCincinnati, KYMetabolic Panelon [id number]/1.73 sq M predicted among non-blacks MDRD (S/P/Bld) [Vol rate/Area][facility] on above:Average GFR for 60-69 years old: 85 mL/min/1.73sq m Chronic Kidney Disease: <60 mL/min/1.73sq m Kidney failure: <15 mL/min/1.73sq m eGFR calculated using average adult body mass. Additional eGFR calculator available at: http://www.SynapDx/multiple_crcl_2012.htm Stage 1: Some kidney damage normal GFR Stage 2: Mild kidney damage GFR 60-89 Stage 3: Moderate kidney damage GFR 30-59 Stage 4: Severe kidney damage GFR 15-29 Stage 5: Severe kidney damage GFR <15 ESRD - chronic treatment by dialysis or transplant Troponinon [id number] I.cardiac [Mass/Vol]NOT REPORTEDCincinnati, KYTrvanderbilt children's hospitalnin T.cardiac [Mass/Vol]NOT REPORTED<0.03 ng/mLCincinnati, [place] Troponin, High Mseriyqbduj30 ng/L0 - 14 ng/LMGreater Regional Health on above: High Sensitivity Troponin values cannot be compared with other Troponin methodologies. Patients with high levels of Biotin oral intake (i.e >5mg/day) may have falsely decreased Troponin levels. Samples collected within 8 hours of biotin intake may require additional information for diagnosis. XR CHEST PORTABLEon [id number], kevin Incoming Radiant Results From [employer] - 03/13/2020 1:12 PM EST EXAMINATION: ONE XRAY VIEW OF THE CHEST 03/13/2020 12:25 pm COMPARISON: October 08, 2019 HISTORY: ORDERING SYSTEM PROVIDED HISTORY: dyspnea TECHNOLOGIST PROVIDED HISTORY: dyspnea FINDINGS: Cardiac silhouette is enlarged. No pneumothorax. No pleural effusion. Pulmonary vascular congestion. Interstitial prominence within the lung bases. Overall, findings are slightly progressed since previous exam. IMPRESSION: Findings as above concerning for congestive heart failure and mild edema. [facility]- [place], KYEXAMINATION: ONE XRAY VIEW OF THE CHEST 03/13/2020 12:25 pm COMPARISON: October 08, 2019 HISTORY: ORDERING SYSTEM PROVIDED HISTORY: dyspnea TECHNOLOGIST PROVIDED HISTORY: dyspnea FINDINGS: Cardiac silhouette is enlarged. No pneumothorax. No pleural effusion. Pulmonary vascular congestion. Interstitial prominence within the lung bases. Overall, findings are slightly progressed since previous exam.[facility]- [place], KYFindings as above concerning for congestive heart failure and mild edema.[facility]- [place], KYMicroscopic Urinalysison [id number], UANOT REPORTEDNoneMercy Health- [place], [place] Bacteria, UA2+AbnormalNoneMey Health- [place], KYCasts UANOT REPORTED/LPFMercy Health- [place], KYCrystals, UANOT REPORTEDNone /HPFMercy Health- [place], KYEpithelial Cells UA0 TO 2[facility]- [place], KYInterpretation and review of laboratory resultsAbnormalMercy Health- [place], KYMucus, UANOT REPORTEDNoneMercy Health- [place], [place] Other Observations UANOT REPORTEDNOT REQ.[facility]- [place], KYRBC (U) [#/Vol]0 TO 2[facility]- [place], KYRenal Epithelial, UANOT REPORTED0 /HPFMercy Health- [place], [place] Trichomonas, UANOT REPORTEDNoneMer[facility]- [place], KYWBC, UA10 TO 20[facility]- [place], KYYeast, UANOT REPORTEDNoneMercy Health- [place], [place]-[facility]- [place], [place] Urinalysis Reflex to Cultureon [id number] UrineNegativeNEGATIVEMercy Health- [place], KYColor, UAYELLOWYELLOWMercy Health- [place], KYGlucose, UrNegative NEGATIVEMercy Health- [place], KYInterpretation and review of laboratory results AbnormalMercy Health- [place], KYKetones Ql (U)NegativeNEGATIVEMercy Health- [place], [place] Leukocyte esterase Test strip Ql (U)MODERATEAbnormalNEGATIVEMercy Health- [place], [place] Nitrite, UrinePositiveAbnormalNEGATIVEMercy Health- [place], KYpH, UA6.0[facility]- [place], KYProtein (U) [Mass/Vol]NegativeNEGATIVEKettering Health [facility]- [place], KYSpecific [place], UA1.020[facility]- [place], KYTurbidity UACLEARCLEARMorrow County Hospital [place], [place] Urinalysis CommentsNOT REPORTEDKettering Health Miamis[facility]- [place], KYUrine Hgb1+AbnormalNEGATIVE [facility], KYUrobilinogen, UrineNormalNormalMorrow County Hospital [place], KYXR HIP 3- 4 VW W PELVIS BILATERALon [id number] right hip osteoarthritis. Suggestion of slight increased sclerosis and flattening of the femoral head could be on the basis of avascular necrosis. Mild left hip degenerative changes. Calcific densities along both greater trochanters are nonspecific and may be related to prior trauma or canbe seen with calcific tendinosis.[facility], Bridgette Win Incoming Radiant Results From [employer] - 02/12/2020 3:49 PM EST EXAMINATION: ONE X-RAY VIEW OF THE PELVIS AND TWO X-RAY VIEWS OF EACH OF THE BILATERAL HIPS 02/12/2020 3:01 pm COMPARISON: March 11, 2011 HISTORY: ORDERING SYSTEM PROVIDED HISTORY: Pain TECHNOLOGIST PROVIDED HISTORY: Pain FINDINGS: Pelvis: No acute fracture. No widening of the sacroiliac joints. Degenerative changes within the lower lumbar spine. Degenerative changes along the pubic symphysis. Right hip: No acute fracture. Moderate right hip joint space narrowing. Questionable mild flattening and sclerosis within the right femoral head. Surgical clips overlie the right groin. Small calcific fragment adjacent to the greater trochanter. Left hip: No acute fracture. Mild left hip joint space narrowing. Surgical clips overlie the left groin. Small calcific fragment adjacent to the greater trochanter is nonspecific. IMPRESSION: Moderate right hip osteoarthritis. Suggestion of slight increased sclerosis and flattening of the femoral head could be on the basis of avascular necrosis. Mild left hip degenerative changes. Calcific densities along both greater trochanters are nonspecific and may be related to prior trauma or can be seen with calcific tendinosis. [facility], CARLOSEXAMINATION: ONE X-RAY VIEW OF THE PELVIS AND TWO X-RAY VIEWS OF EACH OF THE BILATERAL HIPS 02/12/2020 3:01 pm COMPARISON: March 11, 2011 HISTORY: ORDERING SYSTEM PROVIDED HISTORY: Pain TECHNOLOGIST PROVIDED HISTORY: Pain FINDINGS: Pelvis: No acute fracture. No widening of the sacroiliac joints.Degenerative changes within the lower lumbar spine. Degenerative changes along the pubic symphysis.Right hip: No acute fracture. Moderate right hip joint space narrowing. Questionable mild flattening and sclerosis within the right femoral head. Surgical clips overlie the right groin. Small calcific fragment adjacent to the greater trochanter. Left hip: No acute fracture. Mild left hip joint space narrowing. Surgical clips overlie the left groin. Small calcific fragment adjacent to the greater trochanter is nonspecific.[facility], HICBC Auto Differentialon [id number] (Bld) [#/Vol]0.11 10*3/[facility], KYBasophils/100 WBC (Bld)1 %0 - 2 %[facility], [place] Differential TypeNOT REPORTEDPremier Health, KYEosinophils (Bld) [#/Vol]0.38 10*3/[facility], KYEosinophils/100 WBC (Bld)4 %1 - 4 %[facility], HIErythrocyte distribution width (RBC) [Ratio]14.6 %High11.8 - 14.4 %[facility], HIHematocrit (Bld) [Volume fraction]46.9 %36.3 - 47.1 %[facility], HIHemoglobin (Bld) [Mass/Vol]14.5 g/dL11.9 - 15.1 g/dLPremier Health, [place] Immature granulocytes (Bld) [#/Vol]0 %0[facility], HIImmature granulocytes (Bld) [#/Vol]0.03 10*3/[facility], HIInterpretation and review of laboratory resultsAbnormalPremier Health, KYLymphocytes (Bld) [#/Vol]1.55 10*3/[facility], KYLymphocytes/100 WBC (Bld)15 %Low24 - 43 %[facility], KYMCH (RBC) [Entitic mass]28.4 pg25.2 - 33.5 pgPremier Health, [place] MCHC (RBC) [Mass/Vol]30.9 g/dL28.4 - 34.8 g/dLDiley Ridge [facility]- [place], CARLOSMCV (RBC) [Entitic vol]91.8 fL82.6 - 102.9 fLMedina Hospitalinocencio Health- [place], CARLOSMonocytes (Bld) [#/Vol] 0.55 10*3/uLMedina Hospitalinocencio Health- [place], KYMonocytes/100 WBC (Bld)5 %3 - 12 %[facility]- [place], CARLOSPlatelet mean volume (Bld) [Entitic vol]9.6 fL8.1 - 13.5 fLKettering Health Miamisburg- [place], KYPlatelets (Bld) [#/Vol]NOT REPORTEDKettering Health [facility]- [place], KYPlatelets (Bld) [#/Vol]278 10*3/uLMedina Hospitalinocencio [facility]- [place], CARLOSRBC (Bld) [#/Vol]5.11 10*6/uL3.95 - 5.11 m/uLKettering Health [facility]- [place], KYRBC morphology finding Nom (Bld)ANISOCYTOSIS PRESENT [facility]- [place], CARLOSSegmented neutrophils/100 WBC (Bld)75 %High36 - 65 %[facility]- [place], CARLOSSegs Absolute7.53[facility]- [place], KYWBC (Bld) [#/Vol]10.2 10*3/uL [facility]- [place], KYWBC (Bld) [#/Vol]0.0 10*3/uL0.0 per 100 WBCKettering Health [facility]- [place], KYWBC MorphologyNOT REPORTEDKettering Health [facility]- [place], CARLOSCardiacon [id number] [Mass/Vol]267 mg/dLHigh(<200)[facility] Work Phone: Comment on above:Note: Cholesterol Guidelines:<200 Wmevdsojq226-142 Borderline>240 UndesirableResponsible Observer: CCEV AUTOFILE ([id number])Comprehensive Metabolic Panelon [id number] [Mass/Vol]4.3 g/dL3.5 - 5.2 g/dLDiley Ridge [facility]- [place], KYAlbumin/Globulin [Mass ratio]1.6 {ratio}[facility]- [place], CARLOSALP [Catalytic activity/Vol]79 U/L35 - 104 U/LMadena regional medical center [facility]- [place], [place] ALT [Catalytic activity/Vol]7 U/L5 - 33 U/LMadena regional medical center [facility]- [place], KYAnion gap [Moles/Vol]16 mmol/L9 - 17 mmol/LMadena regional medical center [facility]- [place], KYAST [Catalytic activity/Vol]17 U/L<32[facility]- [place], KYBilirubin Ql (U)0.16 mg/dLLow0.3 - 1.2 mg/dLKettering Health [facility]- [place], KYBun/Cre RatioNOT REPORTEDMerQuincy Valley Medical Center- [place], KYCalcium [Mass/Vol]10.0 mg/dL8.6 - 10.4 mg/dLKettering Health [facility]- [place], KYChloride [Moles/Vol]103 mmol/L98 - 107 mmol/LMadena regional medical center [facility]- [place], KYCO2 [Moles/Vol]21 mmol/L20 - 31 mmol/L [facility], KYCreatinine [Mass/Vol]1.32 mg/dLHigh0.5 - 0.9 mg/dLKettering Health [facility]- [place], KYGFR Odpavcvf58 mL/minLow>60[facility]- [place], KYGFR Non- Egafhbyy41 mL/minLow>60[facility]- [place], KYGFR/1.73 sq M predicted among non-blacks MDRD (S/P/Bld) [Vol rate/Area][facility], KYComment on above: Average GFR for 60-69 years old: 85 mL/min/1.73sq m Chronic Kidney Disease: <60 mL/min/1.73sq m Kidney failure: <15 mL/min/1.73sq m eGFR calculated using average adult body mass. Additional eGFR calculator available at: http://www.Ori[employer]/multiple_crcl_2012.htm GFR/1.73 sq M predicted among non-blacks MDRD (S/P/Bld) [Vol rate/Area]NOT REPORTEDKettering Health [facility]- [place], KYGlucose [Mass/Vol]122 mg/aFNjkw80 - 99 mg/dLMorrow County Hospital [place], KYPotassium [Moles/Vol]5.1 mmol/L3.7 - 5.3 mmol/LMadena regional medical center [facility]- [place], KYProtein [Mass/Vol]7.0 g/dL6.4 - 8.3 g/dLMerWilson Memorial Hospital, KYSodium [Moles/Vol] 140 mmol/L135 - 144 mmol/LMercy [facility], KYUrea nitrogen [Mass/Vol]18 mg/dL8 - 23 mg/dLPremier Health, KYHematologyon [id number]/100 WBC (Bld)1 % (0-2)[facility] Work Phone: Comment on above:Note: Responsible Observer: XNV AUTOFILE ([id number])Eosinophils (Bld) [#/Vol]0.38 10*3/uL(0.00-0.44)[facility] Work Phone: Comment on above:Note: Responsible Observer: XNV AUTOFILE ([id number])Eosinophils/100 WBC (Bld)4 %(1-4)[facility] Work Phone: Comment on above:Note: Responsible Observer: XNV AUTOFILE ([id number])Hematocrit (Bld) [Volume fraction]46.9 %(36.3-47.1)[facility] Work Phone: Comment on above:Note: Responsible Observer: XNV AUTOFILE ([id number])Hemoglobin (Bld) [Mass/Vol]14.5 g/dL(11.9-15.1)[facility] Work Phone: Comment on above:Note: Responsible Observer: XNV AUTOFILE ([id number])Lymphocytes (Bld) [#/Vol]1.55 10*3/uL(1.10-3.70)[facility] Work Phone: Comment on above:Note: Responsible Observer: XNV AUTOFILE ([id number])Lymphocytes/100 WBC (Bld)15 %Low(24-43)[facility] Work Phone: Comment on above:Note: Responsible Observer: XNV AUTOFILE ([id number])MCH (RBC) [Entitic mass]28.4 pg(25.2-33.5)[facility] Work Phone: Comment on above:Note: Responsible Observer: XNV AUTOFILE ([id number])MCV (RBC) [Entitic vol]91.8 fL(82.6-102.9)[facility] Work Phone: Comment on above:Note: Responsible Observer: XNV AUTOFILE ([id number])Monocytes (Bld) [#/Vol]0.55 10*3/uL(0.10-1.20)[facility] Work Phone: Comment on above:Note: Responsible Observer: XNV AUTOFILE ([id number])Monocytes/100 WBC (Bld)5 %(3-12)[facility] Work Phone: Comment on above:Note: Responsible Observer: XNV AUTOFILE ([id number])Platelets (Bld) [#/Vol]278 10*3/uL(138-453)[facility] Work Phone: Comment on above:Note: Responsible Observer: XNV AUTOFILE ([id number])Platelets (Bld) [#/Vol]NOT REPORTEDWestwood Lodge Hospital Work Phone: RBC (Bld) [#/Vol]5.11 10*6/uL(3.95-5.11)[facility] Work Phone: Comment on above:Note: Responsible Observer: XNV AUTOFILE ([id number])RBC morphology finding Nom (Bld)ANISOCYTOSIS PRESENTWestwood Lodge Hospital Work Phone: Comment on above:Note: Responsible Observer: XNV AUTOFILE ([id number])WBC (Bld) [#/Vol]0.0 per_100_WBC(0.0)[facility] Work Phone: Comment on above:Note: Responsible Observer: XNV AUTOFILE ([id number])WBC (Bld) [#/Vol]10.2 10*3/uL(3.5-11.3)[facility] Work Phone: Comment on above:Note: Responsible Observer: XNV AUTOFILE ([id number])Lipid, Fastingon 01-07-9926Tvujwnqexsx [Mass/Vol]267 mg/dLHigh <200[facility], HIComment on above: Cholesterol Guidelines: <200 Desirable 200-240 Borderline >240 Undesirable Cholesterol in HDL [Mass/Vol]36 mg/dLLow>40MerWilson [facility] Hospital, HIComment on above: HDL Guidelines: <40 Undesirable 40-59 Borderline >59 Desirable Cholesterol in LDL [Mass/Vol]172 mg/dLHigh0 - 130 mg/dLPremier Health, [place] Comment on above: LDL Guidelines: <100 Desirable 100-129 Near to/above Desirable 130-159 Borderline >159 Undesirable Direct (measured) LDL and calculated LDL are not interchangeable tests. Cholesterol in VLDL [Mass/Vol]NOT REPORTEDHigh1 - 30 mg/dLCincinnati, [place] Cholesterol.total/Cholesterol in HDL [Mass ratio]7.4 {ratio}High<5[facility], HITriglyceride, Gklwyjb133 mg/dLHigh<150MerWilson [facility], KYComment on above: Triglyceride Guidelines: <150 Desirable 150-199 Borderline 200-499 High >499 Very high Based on AHA Guidelines for fasting triglyceride, December 2011. Metabolic Panelon [id number] [Mass/Vol]4.3 g/dL(3.5-5.2)[facility] Work Phone: Comment on above:Note: Responsible Observer: CCEV AUTOFILE ([id number])ALT [Catalytic activity/Vol]7 U/L(5-33)[facility] Work Phone: Comment on above:Note: Responsible Observer: CCEV AUTOFILE ([id number])Anion gap [Moles/Vol]16 mmol/L(9-17)[facility] Work Phone: Comment on above:Note: Responsible Observer: CCEV AUTOFILE ([id number])AST [Catalytic activity/Vol]17 U/L(<32)[facility] Work Phone: Comment on above:Note: Responsible Observer: CCEV AUTOFILE ([id number])Bilirubin [Mass/Vol]0.16 mg/dLLow(0.3-1.2)[facility] Work Phone: Comment on above:Note: Responsible Observer: CCEV AUTOFILE ([id number])Calcium [Mass/Vol]10.0 mg/dL(8.6-10.4)[facility] Work Phone: Comment on above:Note: Responsible Observer: CCEV AUTOFILE ([id number])Chloride [Moles/Vol]103 mmol/L(98-107)[facility] Work Phone: Comment on above:Note: Responsible Observer: CCEV AUTOFILE ([id number])CO2 [Moles/Vol]21 mmol/L(20-31)[facility] Work Phone: Comment on above:Note: Responsible Observer: CCEV AUTOFILE ([id number])Creatinine [Mass/Vol]1.32 mg/dLHigh(0.50-0.90)[facility] [facility] Work Phone: Comment on above:Note: Responsible Observer: CCEV AUTOFILE ([id number])Glucose [Mass/Vol]122 mg/dLHigh(70-99)[facility] Work Phone: Comment on above:Note: Responsible Observer: CCEV AUTOFILE ([id number])Potassium [Moles/Vol]5.1 mmol/L(3.7-5.3)[facility] Work Phone: Comment on above:Note: Responsible Observer: CCEV AUTOFILE (3002)Protein [Mass/Vol]7.0 g/dL(6.4-8.3)[facility] Work Phone: Comment on above:Note: Responsible Observer: CCEV AUTOFILE (3002)Sodium [Moles/Vol]140 mmol/L(135-144)[facility] Work Phone: Comment on above:Note: Responsible Observer: CCEV AUTOFILE (3002)Urea nitrogen [Mass/Vol]18 mg/dL(8-23)[facility] Work Phone: Comment on above:Note: Responsible Observer: CCEV AUTOFILE (3002)Other [id number] and review of laboratory results [facility], [place](cont.)See NoteWestwood Lodge Hospital Work Phone: Comment on above:Note: Average GFR for 60-69 years old:85 mL/min/1.73sq mChronic Kidney Disease:<60 mL/min/1.73sqmKidney failure:<15 mL/min/1.73sq meGFR calculated using average adult body mass. Additional eGFR calculatoravailable at:http://www.SynapDx/multiple_crcl_2011.htmResponsible Observer: CCEV AU TOFILE (3002)Abs. Basophil0.11 k/uL(0.00-0.20)[facility] Work Phone: Comment on above:Note: Responsible Observer: XNV AUTOFILE (3018)Abs.Imm.Granulocyte0.03 k/uL(0.00-0.30)[facility] Work Phone: Comment on above:Note: Responsible Observer: XNV AUTOFILE (3018)Abs.Neutrophil (Seg)7.53 k/uL(1.50-8.10)[facility] Work Phone: Comment on above:Note: Responsible Observer: XNV AUTOFILE (3018)Albumin/Glob Ratio1.6(1.0-2.5)[facility] Work Phone: Comment on above:Note: Responsible Observer: CCEV AUTOFILE (3002)Alkaline Phos79 U/L(35-104)[facility] Work Phone: Comment on above:Note: Responsible Observer: CCEV AUTOFILE (3002)Auto Diff PerformedNOT REPORTEDWest[facility] Lodge Hospital Work Phone: BUN/CRE RatioNOT REPORTED(9-20)[facility] Work Phone: Cholesterol,HDL36 mg/dLLow(>40)[facility] Work Phone: Comment on above:Note: HDL Guidelines:<40 Ukhinjpiduo37-45 Borderline>59 DesirableResponsible Observer: CCEV AUTOFILE (3002)Cholesterol,OBG628 mg/dLHigh(0-130)[facility] Work Phone: Comment on above:Note: LDL Guidelines:<100 Ymvgwnpkd768-135 Near to/above Qnorlwjpg483-698 Borderline>159 UndesirableDirect (measured) LDL and calculated LDL are not interchangeable tests.Responsible Observer: CCEV AUTOFILE (3002)Cholesterol,VLDLNOT REPORTED mg/dL(1-30)[facility] Work Phone: Cholesterol.total/Cholesterol in HDL [Mass ratio]7.4 {ratio}High(<5)[facility] Work Phone: Comment on above:Note: Responsible Observer: CCEV AUTOFILE (3002)Erythrocyte distribution width (RBC) [Ratio]14.6 %High(11.8-14.4) [facility] Work Phone: Comment on above:Note: Responsible Observer: XNV AUTOFILE (3018)GFR, Amer50 mL/minLow(>60)[facility] Work Phone: Comment on above:Note: Responsible Observer: CCEV AUTOFILE (3002)GFR,non Amer41 mL/minLow(>60)[facility] Work Phone: Comment on above:Note: Responsible Observer: CCEV AUTOFILE (3002)Immature granulocytes (Bld) [#/Vol]0 %(0)[facility] Work Phone: Comment on above:Note: Responsible Observer: XNV AUTOFILE ([id number])MCHC (RBC) [Mass/Vol]30.9 g/dL(28.4-34.8)[facility] Work Phone: Comment on above:Note: Responsible Observer: XNV AUTOFILE ([id number])Performing Lab:see noteHealth [facility] Work Phone: Comment on above:Note: [employer] [address] [facility] [address] Platelet mean volume (Bld) [Entitic vol] 9.6 fL(8.1-13.5)[facility] Work Phone: Comment on above:Note: Responsible Observer: XNV AUTOFILE ([id number])Reported PhysiciansSee NoteWestwood Lodge Hospital Work Phone: Comment on above:Note: Reported Physicians:Ordering: Eric CalderóneeAttending: Stephane, AimeeReferring: Cotton, AimeeSegmented neutrophils/100 WBC (Bld)75 %High(36-65)[facility] Work Phone: Comment on above:Note: Responsible Observer: XNV AUTOFILE ([id number])Staging:NOT REPORTEDWest[facility] Lodge [facility] Work Phone: Thyroid Stim. Horm.2.41 mIU/L(0.30-5.00)[facility] Work Phone: Comment on above:Note: Responsible Observer: SWATI NASH (4342)Triglyceride,Fjiytic078 mg/dLHigh(<150)[facility] Work Phone: Comment on above:Note: Triglyceride Guidelines:<150 Licygnqko799-567 Vmvxxehjoz350-936 High>499 Very highBasedon AHA Guidelines for fasting triglyceride, December 2011.Responsible Observer: CCEV AUTOFILE (3555)WBC MorphologyNOT REPORTEDHealth [facility] Work Phone: TSH with Reflexon [id number] Qn2.41 m[IU]/[employer] [facility], KYLUMBAR SPINE 4 OR 5 Son [id number] SPINE 4 OR 5 [facility] Department of Radiology [address] [place] [id number] Patient Name: JONATAN OLIVAREZ : 1960 Sex: F Age: Race: White Pt. Location: 84 Patient Status: Ordered Date: 12/24/2019 10:40:00 AM Completed Date: 12/24/2019 10:41 AM Requesting Provider: ZIYAD BENITEZ Attending Provider: Report Copy To: Signs & Symptoms: M48.061 Spinal stenosis, lumbar region without neurogenic chapito I10 History: [place] Comments: , , , Ordering Provider - ZIYAD BENITEZ MD , Exam: LUMBAR SPINE [address] [facility] LUMBAR SPINE 4 OR 5 S 12/24/2019 10:41 AM CLINICAL INDICATIONS: M48.061 Spinal stenosis, lumbar region without neurogenic chapito I10 TECHNOLOGIST COMMENTS: Patient complains of lower back pain that radiates down bilateral legs for years. QUESTION FOR RADIOLOGIST: , , , Ordering Provider - ZIYAD BENITEZ MD , PROTOCOL: AP,Lateral,L5-S1 spot,Flexion and Extension views were obtained. COMPARISON: December 06, 2010. FINDINGS: Vertebral body heights maintained. Loss of intervertebral disc space height L4-5 and L5-S1. Hypertrophic changes in the facets. No instability and limited range of motion flexion and extension views. IMPRESSION: Degenerative changes in lower lumbar spine similar to 2011. No instability. Electronically signed: Dionicio Bhakta M.D.. Transcribed by: [email or web address], User Resident: Electronically Signed by: DIONICIO BHAKTA @ 12/24/2019 08:37 [facility] - WestComment on above:Order Comment: , , , Ordering Provider - ZIYAD BENITEZ MD , Microscopic Urinalysison [id number], UANOT REPORTEDNoneMercy Health- [place], [place] Bacteria, UAMODERATEAbnormalNoneMercy Health- [place], KYCasts UANOT REPORTEDMercy Health- [place], KYCrystals, UANOT REPORTEDNone /HPFMercy Health- [place], KYEpithelial Cells UA0 TO 2[facility]- [place], KYInterpretation and review of laboratory resultsAbnormalMercy Health- [place], KYMucus, UANOT REPORTEDNoneMercy Health- [place], [place] Other Observations UANOT REPORTEDNOT REQ.[facility]- [place], KYRBC (U) [#/Vol]5 TO 10[facility]- [place], KYRenal Epithelial, UANOT REPORTED0 /HPFMercy Health- [place], KYTrichomonas, UANOT REPORTEDNoneMercy Health- [place], KYWBC, UATOO NUMEROUS TO COUNTMercy Health- [place], KYYeast, UANOT REPORTEDNoneMercy Health- [place], [place]-[facility]- [place], KYUrinalysis Reflex to Cultureon [id number] UrineNegative NEGATIVEMercy Health- [place], KYColor, UADARK YELLOWAbnormalYELLOWMercy Health- [place], KYGlucose, UrNegativeNEGATIVEMercy Health- [place], KYInterpretation and review of laboratory resultsAbnormalMercy Health- [place], KYKetones Ql (U)NegativeNEGATIVE [facility] [place], KYLeukocyte esterase Test strip Ql (U)MODERATEAbnormalNEGATIVE [facility]- [place], KYNitrite, UrineNegativeNEGATIVEMercy Health- [place], KYpH, UA7.0 [facility]- [place], KYProtein (U) [Mass/Vol]1+AbnormalNEGATIVEMercy Health- [place], [place] Specific [place], UA1.025[facility]- [place], KYTurbidity UATURBIDAbnormalCLEAR [facility]- [place], KYUrinalysis CommentsNOT REPORTEDMercy Health- [place], KYUrine Hgb SMALLAbnormalNEGATIVEMercy Health- [place], KYUrobilinogen, UrineNormalNormalMercy Health- [place], KYHematologyon [id number] (Bld) [Mass/Vol]SMALLAbnormal (NEG)[facility] Work Phone: Comment on above:Note: Responsible Observer: ZI Eagle2829)Metabolic Panelon 66-29-1169Zddomowdk.direct [Mass/Vol]Negative (NEG)[facility] Work Phone: Comment on above:Note: Responsible Observer: ZI Eagle2379)Glucose [Mass/Vol]Negative(NEG)[facility] Work Phone: Comment on above:Note: Responsible Observer: ZI Eagle497Shefali)Protein [Mass/Vol]1+Abnormal(NEG)[facility] Work Phone: Comment on above:Note: Responsible Observer: ZI Eagle2829)Otheron 11-16-2019-----See NoteHealth [facility] Work Phone: Comment on above:Note: Responsible Observer: ZI Eagle9745)Acetoacetic Acid,UrNegative(NEG)[facility] Work Phone: Comment on above:Note: Responsible Observer: ZI VARGAS ([id number])CommentNOT REPORTEDHealth [facility] Work Phone: Cult,UrineSee NoteDayton Osteopathic Hospital [facility] Work Phone: Comment on above:Note: Specimen Description .URINESpecial Requests NOT REPORTEDCulture CITROBACTER FREUNDII >[id number] CFU/MLReport Status FINAL 11/18/2019SUSCEPTIBILITYOrganism CITROBACTER FREUNDIIMethod MICAmikacinNOT REPORTEDAztreonam <=1 SUSCEPTIBLECefazolin NOT REPORTEDCefepime NOT REPORTEDCeftriaxone <=1 SUSCEPTIBLECiprofloxacin <=0.25 SUSCEPTIBLEErtapenem NOT REPORTEDGentamicin <=1 SUSCEPTIBLEMeropenem NOT REPORTEDNitrofurantoin <=16 SUSCEPTIBLETigecycline NOT REPORTEDTobramycin <=1 SUSCEPTIBLETrimethoprim/Sulfa <=20 SUSCEPTIBLEPiperacillin/Tazobactam <=4 SUSCEPTIBLEResponsibleObserver: ZI VARGAS (3047)Epithelial, RenalNOT REPORTED /HPF(0)[facility] Work Phone: Leuckocyte EsteraseMODERATEAbnormal(NEG)[facility] Work Phone: Comment on above:Note: Responsible Observer: ZI VARGAS (7573)Mucus StrandsNOT REPORTED(NONE)[facility] Work Phone: Nitrite,UrNegative(NEG)[facility] Work Phone: Comment on above:Note: Responsible Observer: ZI VARGAS ([id number])Other ObservationsNOT REPORTED(NREQ)[facility] Work Phone: Performing Lab:see noteWestwood Lodge Hospital Work Phone: Comment on above:Note: [facility] [employer] [address] [facility] [address] PH,Ur7.0(5.0-8.0)[facility] Work Phone: Comment on above:Note: Responsible Observer: ZI VARGAS (8902)RBC (U) [#/Vol]5 TO 10 /HPF(0-2)[facility] Work Phone: Comment on above:Note: Responsible Observer: ZI VARGAS (6652)Reported PhysiciansSee NoteWestwood Lodge Hospital Work Phone: Comment on above:Note: Reported Physicians:Ordering: Stephane AimeeAttending: Cotton, AimeeReferring: Cotton, AimeeSpec. [place],Ur 1.025(1.005-1.030)[facility] Work Phone: Comment on above:Note: Responsible Observer: ZI VARGAS (5207)TrichomonasNOT REPORTED(NONE)[facility] Work Phone: TurbidityTURBIDAbnormal(CLEAR)[facility] Work Phone: Comment on above:Note: Responsible Observer: ZI VARGAS (9107)Urobilinogen,UrNormal(NORM)[facility] Work Phone: Comment on above:Note: Responsible Observer: ZI VARGAS ([id number])Urinalysison [id number] sediment LM Ql (Urine sed)NOT REPORTED(NONE)[facility] Work Phone: Bacteria identified Cx Nom (U)See NoteWestwood Lodge Hospital Work Phone: Comment on above:Note: Specimen Description .URINESpecial Requests NOT REPORTEDCulture CITROBACTER FREUNDII >[id number] CFU/MLReport Status FINAL 11/18/2019SUSCEPTIBILITYOrganism CITROBACTER FREUNDIIMethod MICAmikacinNOT REPORTEDAztreonam <=1 SUSCEPTIBLECefazolin NOT REPORTEDCefepime NOT REPORTEDCeftriaxone <=1 SUSCEPTIBLECiprofloxacin <=0.25 SUSCEPTIBLEErtapenem NOT REPORTEDGentamicin <=1 SUSCEPTIBLEMeropenem NOT REPORTEDNitrofurantoin <=16 SUSCEPTIBLETigecycline NOT REPORTEDTobramycin <=1 SUSCEPTIBLETrimethoprim/Sulfa <=20 SUSCEPTIBLEPiperacillin/Tazobactam <=4 SUSCEPTIBLEResponsibleObserver: ZI VARGAS ([id number])Bacteria LM.HPF (Urine sed) [#/Area]MODERATEAbnormal(NONE)[facility] Work Phone: Comment on above:Note: Responsible Observer: ZI VARGAS (5284)Casts LM.LPF (Urine sed) [#/Area]NOT REPORTED /LPF(0-2)[facility] Work Phone: Color (U)DARK YELLOWAbnormal(YEL)[facility] Work Phone: Comment on above:Note: Responsible Observer: ZI VARGAS (4970)Crystals LM Nom (Urine sed)NOT REPORTED /HPF(NONE)[facility] Work Phone: Epithelial cells LM.HPF (Urine sed) [#/Area]0 TO 2 /HPF(0-5)[facility] Work Phone: Comment on above:Note: Responsible Observer: ZI VARGAS (1449)WBC (U) [#/Vol]TOO NUMEROUS TO COUNT /HPF(0-5)[facility] Work Phone: Comment on above:Note: Responsible Observer: ZI VARGAS (1323)Yeast LM Ql (Urine sed)NOT REPORTED(NONE)[facility] Work Phone: ammoniaon [id number] (P) [Mass/Vol]26 umol/L11 - 51 umol/LMercy [facility], KYCT Head WO Contraston [id number]: CT OF THE HEAD WITHOUT CONTRAST 10/08/2019 12:16 am TECHNIQUE: CT of the head was performed without the administration of intravenous contrast. Dose modulation, iterative reconstruction, and/or weight based adjustment of the mA/kV was utilized to reduce the radiation dose to as low as reasonably achievable. COMPARISON: CT head 07/17/2019 HISTORY: ORDERING SYSTEM PROVIDED HISTORY: Confus ion TECHNOLOGIST PROVIDED HISTORY: Confusion FINDINGS: BRAIN/VENTRICLES: There is no acute intracranial hemorrhage, mass effect or midline shift. No abnormal extra-axial fluid collection. The stephenson-white differentiation is maintained without evidence of an acute infarct. There is no evidence of hydrocephalus. Mild subcortical and mild periventricular white matter hypoattenuation suggestive chronicmicrovascular disease. Intracranial vascular calcifications. ORBITS: The visualized portion of the orbits demonstrate no acute abnormality. SINUSES: Mild ethmoid sinus mucosal thickening. SOFT TISSUES/SKULL: No acute abnormality of the visualized skull or soft tissues.[facility], KYNo acute intracranial abnormality. Chronic small vessel ischemic disease.[facility], [place]idgette Win Incoming Radiant Results From [email or web address]/[facility] - 10/08/2019 12:43 AM EDT EXAMINATION: CT OF THE HEAD WITHOUT CONTRAST 10/08/2019 12:16 am TECHNIQUE: CT of the head was performed without the administration of intravenous contrast. Dose modulation, iterative reconstruction, and/or weight based adjustment of the mA/kV was utilized to reduce the radiation dose to as low as reasonably achievable. COMPARISON: CT head 07/17/2019 HISTORY: ORDERING SYSTEM PROVIDED HISTORY: Confusion TECHNOLOGIST PROVIDED HISTORY: Confusion FINDINGS: BRAIN/VENTRICLES: There is no acute intracranial hemorrhage, mass effect or midline shift. No abnormal extra-axial fluid collection. The stephenson-white differentiation is maintained without evidence of an acute infarct. There is no evidence of hydrocephalus. Mild subcortical and mild periventricular white matter hypoattenuation suggestive chronic microvascular disease. Intracranial vascular calcifications. ORBITS: The visualized portion of the orbits demonstrate no acute abnormality. SINUSES: Mild ethmoid sinus mucosal thickening. SOFT TISSUES/SKULL: No acute abnormality of the visualized skull or soft tissues. IMPRESSION: No acute intracranial abnormality. Chronic small vessel ischemic disease. [facility], KYComprehensive Metabolic Panelon [id number] [Mass/Vol] 3.6 g/dL3.5 - 5.2 g/dLPremier Health, KYAlbumin/Globulin [Mass ratio]1.2 {ratio}[facility], KYALP [Catalytic activity/Vol]81 U/L35 - 104 U/LMHocking Valley [facility] [place], KYALT [Catalytic activity/Vol]11 U/L5 - 33 U/LMHocking Valley [facility] [place], [place] Anion gap [Moles/Vol]15 mmol/L9 - 17 mmol/LMmorrow county hospitaly Health- [place], KYAST [Catalytic activity/Vol]15 U/L<32[facility]- [place], KYBilirubin Ql (U)<0.10Low0.3 - 1.2 mg/dLKettering Health [facility]- [place], KYBun/Cre Osyeg86BfuizMorrow County Hospital [place], KYCalcium [Mass/Vol] 9.1 mg/dL8.6 - 10.4 mg/dLPremier Health, KYChloride [Moles/Vol]99 mmol/L98 - 107 mmol/LMHocking Valley [facility] Hospital [place], KYCO2 [Moles/Vol]23 mmol/L20 - 31 mmol/LMMercy Health [address] [facility]- [place], KYCreatinine [Mass/Vol]1.18 mg/dLHigh0.5 - 0.9 mg/dLPremier Health, KYGFR Tiyzpdkj32 mL/minLow>60[facility] [place], KYGFR Non- Sdxldlju18 mL/minLow>60[facility], KYGlucose [Mass/Vol]113 mg/cXTdoe87 - 99 mg/dLPremier Health, KYInterpretation and review of laboratory results AbnormalPremier Health, KYPotassium [Moles/Vol]4.4 mmol/L3.7 - 5.3 mmol/LMHocking Valley Community Hospital [place], KYProtein [Mass/Vol]6.5 g/dL6.4 - 8.3 g/dLPremier Health, [place] Sodium [Moles/Vol]137 mmol/L135 - 144 mmol/LMOhio State [facility]ing [facility], KYUrea nitrogen [Mass/Vol]19 mg/dL8 - 23 mg/dLPremier Health, KYLipaseon [id number] [Catalytic activity/Vol]20 U/L13 - 60 U/LMOhio State Harding Hospital, KYMetabolic Panelon [id number]/1.73 sq M predicted among non-blacks MDRD (S/P/Bld) [Vol rate/Area][facility], KYComment on above:Stage 1: Some kidney damage normal GFR Stage 2: Mild kidney damage GFR 60-89 Stage 3: Moderate kidney damage GFR 30-59 Stage 4: Severe kidney damage GFR 15-29 Stage 5: Severe kidney damage GFR <15 ESRD - chronic treatment by dialysis or transplant Average GFR for 60-69 years old: 85 mL/min/1.73sq m Chronic Kidney Disease: <60 mL/min/1.73sq m Kidney failure: <15 mL/min/1.73sq m eGFR calculated using average adult body mass. Additional eGFR calculator available at: http://www.Ori[employer] OnDemand/multiple_crcl_2012.htm SPECIMEN REJECTIONon [id number] TestCP,TROPClinton [facility] Hospital HIReason for RejectionUnable to perform testing: Specimen hemolyzed.[place], [place] Specimen source Nom (Unsp spec).BLOODCinc[place], [place]-NOT REPORTEDPremier HealthAdriananinon [id number] I.cardiac [Mass/Vol]NOT REPORTED [facility] HealthAdriananin T.cardiac [Mass/Vol]NOT REPORTED<0.03 ng/mLPremier HealthAdriananin, High Dfczqcfpmew23 ng/L0 - 14 ng/LMBuckeye, [place] Comment on above: High Sensitivity Troponin values cannot be compared with other Troponin methodologies. Patients with high levels of Biotin oral intake (i.e >5mg/day) may have falsely decreased Troponin levels. Samples collected within 8 hours of biotin intake may require additional information for diagnosis. Interpretation and review of laboratory resultsAbnormalCincinnati, [place] Troponin I.cardiac [Mass/Vol]NOT REPORTEDPremier Health HITahirnin T.cardiac [Mass/Vol]NOT REPORTED<0.03 ng/mLPremier Health HITahirnin, High Sensitivity 15 ng/LHigh0 - 14 ng/LMBuckeye, KYComment on above: High Sensitivity Troponin values cannot be compared with other Troponin methodologies. Patients with high levels of Biotin oral intake (i.e >5mg/day) may have falsely decreased Troponin levels. Samples collected within 8 hours of biotin intake may require additional information for diagnosis. XR CHEST STANDARD (2 VW)on 12-00-3236Gbpg bibasilar airspace opacities could represent underlying edema or developing atypical infection. Please correlate exam findings.[facility] HealthAudelia, Bridgette Incoming Radiant Results From [email or web address]/[facility] - 10/08/2019 1:08 AM EDT EXAMINATION: TWO XRAY VIEWS OF THE CHEST 10/08/2019 12:17 am COMPARISON: CTA chest 10/06/2019 HISTORY: ORDERING SYSTEM PROVIDED HISTORY: shortness of breath TECHNOLOGIST PROVIDED HISTORY: shortness of breath FINDINGS: The cardiomediastinal silhouette is mildly enlarged with mild prominence of the perihilar regions due to combination of prominent pulmonary arterial tree perihilar lymph nodes. Mild hazy bibasilar opacities. No pleural effusion or pneumothorax is present. IMPRESSION: Hazy bibasilar airspace opacities could represent underlying edema or developing atypical infection. Please correlate exam findings. [facility], KYEXAMINATION: TWO XRAY VIEWS OF THE CHEST 10/08/2019 12:17 am COMPARISON: CTA chest 10/06/2019 HISTORY: ORDERING SYSTEM PROVIDED HISTORY: shortness of breath TECHNOLOGIST PROVIDED HISTORY: shortness of breath FINDINGS: The cardiomediastinal silhouette is mildly enlarged with mild prominence of the perihilar regions due to combination of prominent pulmonary arterial tree perihilar lymph nodes. Mild hazy bibasilar opacities. No pleural effusion or pneumothorax is present.[facility], KYCBC Auto Differentialon 10-07-2019 Basophils (Bld) [#/Vol]0.09 10*3/uLPremier Health, KYBasophils/100 WBC (Bld)1 %0 - 2 %[facility], CARLOSDifferential TypeNOT REPORTEDPremier Health, [place] Eosinophils (Bld) [#/Vol]0.92 10*3/uLOhio State Harding Hospital, KYEosinophils/100 WBC (Bld)8 %High1 - 4 %[facility], HIErythrocyte distribution width (RBC) [Ratio]17.7 %High11.8 - 14.4 %[facility], CARLOSHematocrit (Bld) [Volume fraction]35.5 %Low36.3 - 47.1 %[facility], CARLOSHemoglobin (Bld) [Mass/Vol] 11.3 g/dLLow11.9 - 15.1 g/dLPremier Health, KYImmature granulocytes (Bld) [#/Vol]0.06 10*3/[facility], KYImmature granulocytes (Bld) [#/Vol]1 % Hkox0BosorPremier Health, CARLOSInterpretation and review of laboratory resultsAbnormal [facility], KYLymphocytes (Bld) [#/Vol]1.93 10*3/uLPremier Health, [place] Lymphocytes/100 WBC (Bld)17 %Low24 - 43 %[facility]- [place], KYH (RBC) [Entitic mass]28.0 pg25.2 - 33.5 pgKettering Health [facility]- [place], KYMCHC (RBC) [Mass/Vol]31.8 g/dL28.4 - 34.8 g/dLK[facility]tering Health [facility]- [place], KYV (RBC) [Entitic vol]88.1 fL82.6 - 102.9 fL [facility]- [place], KYMonocytes (Bld) [#/Vol]0.82 10*3/uLKettering Health [facility]- [place], [place] Monocytes/100 WBC (Bld)7 %3 - 12 %[facility]- [place], KYPlatelet mean volume (Bld) [Entitic vol]9.6 fL8.1 - 13.5 fLKettering Health [facility]burg- [place], KYPlatelets (Bld) [#/Vol]318 10*3/uLKettering Health [facility]- [place], KYPlatelets (Bld) [#/Vol]NOT REPORTEDKettering Health [facility]- [place], HIRBC (Bld) [#/Vol]4.03 10*6/uL3.95 - 5.11 m/uLKettering Health [facility]- [place], HIRBC morphology finding Nom (Bld)NOT REPORTEDKettering Health [facility]- [place], HISegmented neutrophils/100 WBC (Bld)66 %High36 - 65 %[facility]- [place], KYSegs Absolute7.51 [facility]- [place], KYWBC (Bld) [#/Vol]0.0 10*3/uL0.0 per 100 WBCKettering Health [facility]- [place], KYWBC (Bld) [#/Vol]11.3 10*3/uLKettering Health [facility]- [place], KYWBC MorphologyNOT REPORTED [facility]- [place], [facility]alsic Metabolic Panelon [id number] gap [Moles/Vol]15 mmol/L9 - 17 mmol/LMadena regional medical center Health- [place], KYBun/Cre Eccav95Osjjj Health- [place], [place] Calcium [Mass/Vol]8.8 mg/dL8.6 - 10.4 mg/dLKettering Health [facility]- [place], KYChloride [Moles/Vol]99 mmol/L98 - 107 mmol/[address]MMer[address] [facility]- [place], KYCO2 [Moles/Vol]24 mmol/L 20 - 31 mmol/LMer[facility]- [place], KYCreatinine [Mass/Vol]0.95 mg/dLHigh0.5 - 0.9 mg/dLMercy Health- [place], KYGFR >60>60 mL/minMercy Health- [place], [place] GFR Non->60>60 mL/minMercy Health- [place], KYGlucose [Mass/Vol]163 mg/nJRkjw99 - 99 mg/dLMercy Health- [place], KYPotassium [Moles/Vol]4.5 mmol/L3.7 - 5.3 mmol/LMercy [facility]- [place], KYSodium [Moles/Vol]138 mmol/L135 - 144 mmol/LMer[facility]- [place], KYUrea nitrogen [Mass/Vol]11 mg/dL8 - 23 mg/dLMercy Health- [place], [place] Blood Gas, Arterialon [id number] TestPASSMercy Health- [place], KYaPTT Coag (Bld) [Time]37 sMercy Health- [place], KYCarboxyhemoglobin6.6 %High0 - 5 %[facility]- [place], KYComment on above: Reference Range: Non-Smokers 0-2% Average Smoker 2-4% Heavy Smoker <10% UFK4UMN REPORTEDMercy Health- [place], KYHCO3, Xxbbbjng92.5 mmol/L22 - 26 mmol/LMer[facility]- [place], KYInterpretation and review of laboratory resultsAbnormalMercy Health- [place], KYMethemoglobin0.4 %0 - 1.9 %[facility]- [place], KYModeNOT REPORTED [facility] [place], KYNegative Base Excess, Art0.2 mmol/L0 - 2 mmol/LMercy [facility]- [place], KYNOTIFICATIONNOT REPORTEDMercy Health- [place], KYNOTIFICATION TIMENOT REPORTED [facility] [place], KYO2 Device/Flow/%CannulaMercy Health- [place], KYOxygen saturation in Blood89.4 %Low95 - 98 %[facility] [place], KYOxyhemoglobinNOT [id number] - 98 %[facility]- [place], KYpCO2, Art, Temp AdjNOT REPORTEDMercy Health- [place], KYpCO2, Hriynvgu01.0HighMercy Health- [place], KYPeep/CpapNOT REPORTEDMercy Health- [place], KYpH, Art, Temp AdjNOT REPORTEDMer[facility] Health- [place], KYpH, Arterial7.362[facility]- [place], KYpO2, Art, Temp AdjNOT REPORTEDMercy Health- [place], KYpO2, Jzieigem42.8LowMercy Health- [place], KYPositive Base Excess, ArtNOT REPORTED0 - 2 mmol/LMercy Health- [place], KYPSVNOT REPORTEDMer Health- [place], KYPt. PositionSEMI-FOWLERSMer Health- [place], KYSample SiteRight Brachial ArteryMer Health- [place], KYSet RateNOT REPORTEDMer Health- [place], KYText for RespiratoryNOT REPORTEDMercy Health- [place], KYTotal HbNOT [id number] - 16 g/dlMercy Health- [place], KYTotal RateNOT REPORTEDMer Health- [place], KYVTNOT REPORTEDDiley [facility]- [place], KYBrain Natriuretic Peptideon 10-06-2019 Natriuretic peptide B (Bld) [Mass/Vol]869 pg/mLHigh<300[facility] [employer]- [place], [place] Comment on above:Pro-BNP results cannot be compared to BNP results.Natriuretic peptide B (Bld) [Mass/Vol]Pro-BNP Reference Range:[facility] [employer]- [place], KYComment on above: Rule Out: <300 [place] Zone: Age <50 300-450 Age 50-75 300-900 Age >75 300-1800 Usually represents mild to moderate HF but other cardiopulmonary causes cannot be ruled out. Rule In: Age <50 >450 Age 50-75 >900 Age >75 >1800 CBC Auto Differentialon [id number] (Bld) [#/Vol]0.05 10*3/uLMer Health- [place], KYBasophils/100 WBC (Bld)1 %0 - 2 %[facility]- [place], KYDifferential TypeNOT REPORTEDDiley Ridge Medical Center [facility]- [place], KYEosinophils (Bld) [#/Vol]0.61 10*3/uLHigh [facility]- [place], KYEosinophils/100 WBC (Bld)6 %High1 - 4 %[facility]- [place], [place] Erythrocyte distribution width (RBC) [Ratio]17.5 %High11.8 - 14.4 %[facility]- [place], KYHematocrit (Bld) [Volume fraction]34.1 %Low36.3 - 47.1 %[facility]- [place], KYHemoglobin (Bld) [Mass/Vol]11.0 g/dLLow11.9 - 15.1 g/dLKettering Health [place]- [place], [place] Immature granulocytes (Bld) [#/Vol]0.06 10*3/uLKettering Health [place]- [place], KYImmature granulocytes (Bld) [#/Vol]1 %Ovqb9KdrejKettering Health [place]- [place], KYInterpretation and review of laboratory resultsAbnormalKettering Health [facility]- [place], KYLymphocytes (Bld) [#/Vol]1.48 10*3/[facility]- [place], KYLymphocytes/100 WBC (Bld)13 %Low24 - 43 %[facility]- [place], KYMCH (RBC) [Entitic mass]28.1 pg25.2 - 33.5 pgKettering Health [place]- [place], [place] MCHC (RBC) [Mass/Vol]32.3 g/dL28.4 - 34.8 g/dLKettering Health [place]- [place], KYMCV (RBC) [Entitic vol]87.0 fL82.6 - 102.9 fLKettering Health Miamisburg- [place], KYMonocytes (Bld) [#/Vol] 0.67 10*3/[facility]- [place], KYMonocytes/100 WBC (Bld)6 %3 - 12 %[facility]- [place], CARLOSPlatelet mean volume (Bld) [Entitic vol]9.6 fL8.1 - 13.5 fLKettering Health Miamisburg- [place], KYPlatelets (Bld) [#/Vol]251 10*3/[facility]- [place], KYPlatelets (Bld) [#/Vol]NOT REPORTEDKettering Health [facility]- [place], KYRBC (Bld) [#/Vol]3.92 10*6/uLLow3.95 - 5.11 m/[facility]- [place], KYRBC morphology finding Nom (Bld)NOT REPORTEDKettering Health [place]- [place], KYSegmented neutrophils/100 WBC (Bld)73 %High36 - 65 %[facility]- [place], KYSegs Absolute8.24HighKettering Health [facility]- [place], KYWBC (Bld) [#/Vol]0.0 10*3/uL0.0 per 100 WBCCinc[place], KYWBC (Bld) [#/Vol]11.1 10*3/uLCincinnati, [place] WBC MorphologyNOT REPORTEDPremier HealthCARLOSCOVID-19on [id number]-CoV-2 [place], KYSARS-CoV-2, PCRCinc[place], KYSARS-CoV-2, RapidNot DetectedNot DetectedPremier Health HIComment on above: Rapid NAAT: The specimen is NEGATIVE for SARS-CoV-2, the novel coronavirus associated with COVID-19. Negative results should be treated as presumptive and, if inconsistent with clinical signs and symptoms or necessary for patient management, should be tested with an alternative molecular assay. Negative results do not preclude SARS-CoV-2 infection and should not be used as the sole basis for patient management decisions. Fact sheet for Healthcare Providers: https://www.fda.gov/media/968849/download Fact sheet for Patients: https://www.fda.gov/media/914664/download Methodology: Isothermal Nucleic Acid Amplification Source.NASOPHARYNGEAL SWABCincinnati, KYCT Chest Pulmonary Embolism W Contraston . No evidence for acute pulmonary embolism. 2. Bilateral ground-glass opacities are noted, nonspecific in appearance. This may represent multifocal infection (including viral pneumonia), inflammatory process or less likely edema. 3. Calcified atheromatous plaque and coronary calcification. 4. Bilateral adrenal adenomas.[place], KYEXAMINATION: CTA OF THE CHEST 10/06/2019 12:50 pm TECHNIQUE: CTA of the chest was performed after the administration of intravenous contrast. Multiplanar reformatted images are provided for review. MIPimages are provided for review. Dose modulation, iterative reconstruction, and/or weight based adjustment of the mA/kV was utilized to reduce the radiation dose to as low as reasonably achievable. COM PARISON: Chest radiograph today. Chest CT 07/17/2019 and 04/08/2017. HISTORY: ORDERING SYSTEM PROVIDED HISTORY: Chest discomfort and elevated d-dimer TECHNOLOGIST PROVIDED HISTORY: Chest discomfort and elevated d-dimer FINDINGS: Pulmonary Arteries: Pulmonary arteries are adequately opacified for evaluation. No evidence of intraluminal filling defect to suggest pulmonary embolism. Main pulmonary artery is enlarged measuring 34 mm.. Mediastinum: No evidence of mediastinal lymphadenopathy. The heart and pericardium demonstrate no acute abnormality. There is no acute abnormality of the thoracic aorta. Calcified atheromatous plaque and coronary calcifications are noted. Lungs/pleura: Scattered ground-glass opacities are noted. No septal thickening. No effusion. The central airway is patent. No pneumothorax. Upper Abdomen: Bilateral adrenal nodules again demonstrated measuring 17 mm on the right and 1 cm on the left. These are previously characterized as benign adenomas on prior noncontrast chest CT imaging. Soft Tissues/Bones: No acute bone or soft tissue abnormality.[facility], [place], [place] Incoming Radiant Results From [email or web address]/[facility] - 10/06/2019 1:13 PM EDT EXAMINATION: CTA OF THE CHEST 10/06/2019 12:50 pm TECHNIQUE: CTA of the chest was performed after the administration of intravenous contrast. Multiplanar reformatted images are provided for review. MIP images are provided for review. Dose modulation, iterative reconstruction, and/or weight based adjustment of the mA/kV was utilized to reduce the radiation dose to as low as reasonably achievable. COMPARISON: Chest radiograph today. Chest CT 07/17/2019 and 04/08/2017. HISTORY: ORDERING SYSTEM PROVIDED HISTORY: Chest discomfort and elevated d-dimer TECHNOLOGIST PROVIDED HISTORY: Chest discomfort and elevated d-dimer FINDINGS: Pulmonary Arteries: Pulmonary arteries are adequately opacified for evaluation. No evidence of intraluminal filling defect to suggest pulmonary embolism. Main pulmonary artery is enlarged measuring 34 mm.. Mediastinum: No evidence of mediastinal lymphadenopathy. The heart and pericardium demonstrate no acute abnormality. There is no acute abnormality of the thoracic aorta. Calcified atheromatous plaque and coronary calcifications are noted. Lungs/pleura: Scattered ground-glass opacities are noted. No septal thickening. No effusion. The central airway is patent. No pneumothorax. Upper Abdomen: Bilateral adrenal nodules again demonstrated measuring 17 mm on the right and 1 cm on the left. These are previously characterized as benign adenomas on prior noncontrast chest CT imaging. Soft Tissues/Bones: No acute bone or soft tissue abnormality. IMPRESSION: 1. No evidence for acute pulmonary embolism. 2. Bilateral ground-glass opacities are noted, nonspecific in appearance. This may represent multifocal infection (including viral pneumonia), inflammatory process or less likely edema. 3. Calcified atheromatous plaque and coronary calcification. 4. Bilateral adrenal adenomas. [facility] CARLOSD-Dimer, Quantitativeon [id number]-Dimer, Quant1.77High [facility] CARLOSRishabh on above: When combined with a low clinical probability, a D dimer value of <0.50 mg/L FEU is considered negative for DVT and PE (negative predictive value of 98%, sensitivity of 97%). If this test is not being used to help rule out DVT and PE, then the following reference range should be utilized: 0.00 - 0.59 mg/L FEU. The D-Dimer assay is intended for use as an aid in the diagnosis of venous thromboembolism (DVT and PE) and the results should be interpreted in conjunction with the patient's medical history, clinical presentation, and other findings. Elevated levels of D-dimer activity can be seen in any state of coagulation activation and is not recommended in patients with therapeutic dose anticoagulant therapy for >24 hours, fibrinolytic therapy within the previous 7 days, trauma or surgery within the previous 4 weeks, disseminated malignancies, aortic aneurysm, sepsis, severe infections, pneumonia, severe skin infections, liver cirrhosis, advanced age, coronary disease, diabetes, and . A very low percentage of patients with DVT may yield D-dimer results below the cutoff of 0.5 mg/L FEU. This is known to be more prevalent in patients with distal DVT. Interpretation and review of laboratory resultsAbnormBluffton Hospital, CARLOS Lactate, Sepsison [id number] Acid, Sepsis1.0 mmol/L0.5 - 1.9 mmol/[place], KYLactic Acid, Sepsis, Whole BloodNOT REPORTED0.5 - 1.9 mmol/[place], KYMetabolic Panelon [id number]/1.73 sq M predicted among non- blacks MDRD (S/P/Bld) [Vol rate/Area][facility] HealthCARLOSKhanhdai on above: Average GFR for 60-69 years old: 85 mL/min/1.73sq m Chronic Kidney Disease: <60 mL/min/1.73sq m Kidney failure: <15 mL/min/1.73sq m eGFR calculated using average adult body mass. Additional eGFR calculator available at: http://www.Oriense.[employer]/multiple_crcl_2012.htm Stage 1: Some kidney damage normal GFR Stage 2: Mild kidney damage GFR 60-89 Stage 3: Moderate kidney damage GFR 30-59 Stage 4: Severe kidney damage GFR 15-29 Stage 5: Severe kidney damage GFR <15 ESRD - chronic treatment by dialysis or transplant Otheron [id number] and review of laboratory resultsAbnormalMercy Health- [place], KYTroponinon [id number] I.cardiac [Mass/Vol]NOT REPORTED [facility]- [place], KYTroponin T.cardiac [Mass/Vol]NOT REPORTED<0.03 ng/mLMercy Health- [place], KYTroponin, High Arsfbzgftgk46 ng/L0 - 14 ng/LMercy Health- [place], [place] Comment on above: High Sensitivity Troponin values cannot be compared with other Troponin methodologies. Patients with high levels of Biotin oral intake (i.e >5mg/day) may have falsely decreased Troponin levels. Samples collected within 8 hours of biotin intake may require additional information for diagnosis. Urinalysis with [employer] [id number], UANOT REPORTEDNoneMercy Health- [place], KYBacteria, UA4+AbnormalNoneMercy Health- [place], KYBilirubin Urine NegativeNEGATIVEMercy Health- [place], KYCasts UANOT REPORTED/LPFMercy Health- [place], [place] Color, UAYELLOWYELLOWMercy Health- [place], KYCrystals, UANOT REPORTEDNone /HPFMercy Health- [place], KYEpithelial Cells UA0 TO 2[facility]- [place], KYGlucose, UrNegative NEGATIVEMercy Health- [place], KYInterpretation and review of laboratory results AbnormalMercy Health- [place], KYKetones Ql (U)NegativeNEGATIVEMercy Health- [place], [place] Leukocyte esterase Test strip Ql (U)SMALLAbnormalNEGATIVEMercy Health- [place], [place] Mucus, UANOT REPORTEDNoneMercy Health- [place], KYNitrite, UrinePositiveAbnormal NEGATIVEMercy Health- [place], KYOther Observations UANOT REPORTEDNOT REQ.[facility]- [place], KYpH, UA6.0[facility]- [place], KYProtein (U) [Mass/Vol]Negative NEGATIVEMercy Health- [place], KYRBC (U) [#/Vol]NoneMer[facility] Health- [place], KYRenal Epithelial, UANOT REPORTED0 /HPFMer Health- [place], KYSpecific [place], UA1.020 MercWell[facility]- [place], KYTrichomonas, UANOT REPORTEDNoneMemount [facility]- [place], KYTurbidity UACLOUDYAbnormalCLEARKettering Health [facility]- [place], KYUrinalysis CommentsNOT REPORTEDDiley [facility]- [place], KYUrine HgbNegativeNEGATIVEMer Health- [place], KYUrobilinogen, Urine NormalNormalDiley [facility]- [place], KYWBC, UA20 TO 50Mer Health- [place], KYYeast, UANOT REPORTEDNoneMemount carmel health [facility]- [place], [place]-[facility]- [place], KYXR CHEST 1 VWon 10-06-2019 [place], Mhpn Incoming Radiant Results From [email or web address]/[facility] - 10/06/2019 10:21 AM EDT EXAMINATION: ONE XRAY VIEW OF THE CHEST 10/06/2019 10:08 am COMPARISON: Chest radiograph dated 18 July 2019 HISTORY: ORDERING SYSTEM PROVIDED HISTORY: Probable pneumonia TECHNOLOGIST PROVIDED HISTORY: Probable pneumonia FINDINGS: Single upright portable submitted. Lungs are slightly hypoinflated. There is multifocal patchy opacity in the right hilum, right base, and right apex. There is also opacity in the left base, similar to comparison. Costophrenic margins are well identified. Bilateral pulmonary arteries are enlarged. Mild pulmonary venous congestion. No destructive lesions of bone. Central line and endotracheal tube no longer present. IMPRESSION: 1. Multifocal patchy opacifications concerning for multifocal pneumonia. Recommend repeat chest x-ray after cessation of symptoms. 2. Enlargement of the pulmonary arteries. [facility], KYEXAMINATION: ONE XRAY VIEW OF THE CHEST 10/06/2019 10:08 am COMPARISON: Chest radiograph dated 18 July 2019 HISTORY: ORDERING SYSTEM PROVIDED HISTORY: Probable pneumonia TECHNOLOGIST PROVIDED HISTORY:Probable pneumonia FINDINGS: Single upright portable submitted. Lungs are slightly hypoinflated. There is multifocal patchy opacity in the right hilum, right base, and right apex. There is also opacity in the left base, similar to comparison. Costophrenic margins are well identified. Bilateral pulmonary arteries are enlarged. Mild pulmonary venous congestion. No destructive lesions of bone. Central line and endotracheal tube no longer present.[facility], KY1. Multifocal patchy opacifications concerning for multifocal pneumonia. Recommend repeat chest x-ray after cessation of symptoms. 2. Enlargement of the pulmonary arteries.[facility], KYCOVID-19on [id number]-CoV-2MOhio State Harding Hospital, [place] SARS-CoV-2, PCRNot DetectedNot [facility], CARLOSComment on above: (NOTE) The [employer]ieves RealTime SARS-CoV-2 assay is a real-time (rt) reverse transcriptase (RT) polymerase chain reaction (PCR) test intended for the [employer] system. The SARS-CoV-2 primer and probe sets are designed to detect RNA from SARS-CoV-2 in nasopharyngeal (RABBET OPERATOR) and oropharyngeal (OP) swabs from patients with signs and symptoms of infection who are suspected of COVID-19. Results are for the identification of SARS-CoV-2 RNA. The SARS-CoV-2 RNA is generally detectable in a nasopharyngeal and oropharyngeal swabs during the acute phase of infection. The [employer]ieves RealTime SARS-CoV-2 assay is intended for use by qualified and trained clinical laboratory personnel specifically instructed and trained in the techniques of real-time PCR and in vitro diagnostic procedures. The [employer]ieves RealTime SARS-CoV-2 assay is only for use under the Food and Drug Administration Emergency Use Authorization. Testing is limited to laboratories certified under the Clinical Laboratory Improvement Amendments of 1988 (CLIA), 42 U.S.C. 263a, to perform high complexity tests. Not Detected: Not detected does not preclude SARS-CoV-2 infection and should not be used as the sole basis for patient management decisions. Not detected results must be combined with clinical observations, patient history, and epidemiological information. The above 1 analytes were performed by [address] [place] [address] SARS-CoV-2, [facility], [place].NASOPHARYNGEAL SWABPremier Health, KYBasic Metabolic Panelon [id number] gap [Moles/Vol]13 mmol/L9 - 17 mmol/L [facility], KYBun/Cre RatioNOT REPORTEDPremier Health, KYCalcium [Mass/Vol]9.0 mg/dL8.6 - 10.4 mg/dLPremier Health, KYChloride [Moles/Vol]104 mmol/L98 - 107 mmol/LMercy Health- [place], KYCO2 [Moles/Vol]24 mmol/L20 - 31 mmol/L [facility], KYCreatinine [Mass/Vol]0.82 mg/dL0.5 - 0.9 mg/dLPremier Health, KYGFR >60>60 mL/minMorrow County Hospital [place], KYGFR Non->60>60 mL/minPremier Health, KYGFR/1.73 sq M predicted among non- blacks MDRD (S/P/Bld) [Vol rate/Area]NOT REPORTEDPremier Health, KYGFR/1.73 sq M predicted among non-blacks MDRD (S/P/Bld) [Vol rate/Area][facility], [place] Comment on above:Average GFR for 60-69 years old: 85 mL/min/1.73sq m Chronic Kidney Disease: <60 mL/min/1.73sq m Kidney failure: <15 mL/min/1.73sq m eGFR calculated using average adult body mass. Additional eGFR calculator available at: http://www.[employer]x/multiple_crcl_2011.htm Glucose [Mass/Vol]113 mg/fPUave68 - 99 mg/dLPremier Health, KYInterpretation and review of laboratory resultsAbnormalPremier Health, KYPotassium [Moles/Vol]4.8 mmol/L3.7 - 5.3 mmol/LMOhio State Harding Hospital, KYSodium [Moles/Vol]141 mmol/L135 - 144 mmol/LMOhio State Harding Hospital, KYUrea nitrogen [Mass/Vol]15 mg/dL8 - 23 mg/dLPremier Health, KYCBCon [id number] distribution width (RBC) [Ratio]18.5 %High11.8 - 14.4 %[facility], KYHematocrit (Bld) [Volume fraction]43.0 %36.3 - 47.1 %[facility], KYHemoglobin (Bld) [Mass/Vol]13.4 g/dL11.9 - 15.1 g/dLPremier Health, KYInterpretation and review of laboratory resultsAbnormBluffton Hospital, KYMCH (RBC) [Entitic mass]27.4 pg25.2 - 33.5 pg [facility] SystemHC (RBC) [Mass/Vol]31.2 g/dL28.4 - 34.8 g/dLMemorial Health SystemV (RBC) [Entitic vol]87.9 fL82.6 - 102.9 fLCincinnati, KYPlatelet mean volume (Bld) [Entitic vol]9.3 fL8.1 - 13.5 fLPremier Health, HIPlatelets (Bld) [#/Vol]262 10*3/uLPremier Health, HIRBC (Bld) [#/Vol]4.89 10*6/uL3.95 - 5.11 m/[facility], HIWBC (Bld) [#/Vol]12.0 10*3/uLOhio State Harding Hospital, HIWBC (Bld) [#/Vol]0.0 10*3/uL0.0 per 100 WBCCinc[place], KYEcho 2D w doppler w color completeon [id number] HEALTH [facility] Transthoracic Echocardiography Report (TTE) Patient Name SHER Date of Study 09/03/2019 JONATAN C Date of 1960 Gender Female Age 59 year(s) Race Room Number Height: 61 inch, 154.94 cm Corporate ID [id number] Weight: 187 pounds, 84.8 kg # Patient Acct [id number] BSA: 1.84 m^2 BMI: 35.33 # kg/m^2 MR # [id number] Corporate Statistical Financial Analyst Fátima Adame Interpreting Physician Josef Brooks Fellow Referring Nurse Practitioner Interpreting Referring Physician Josef Brooks Fellow Type of Study TTE procedure:2D Echocardiogram, M-Mode, Doppler, Color Doppler. Procedure Date Date: 09/03/2019 Start: 09:34 AM Study Location: [facility] Indications:Coronary Atherosclerosis. History / Tech. Comments: ASHD PMHX: HTN, Edema, DM, CAD, COPD Patient Status: Outpatient Height: 61 inches Weight: 187 pounds BSA: 1.84 m^2 BMI: 35.33 kg/m^2 BP: 106/65 mmHgAllergies - *Unlisted:(ceclor simvastatin). - Codeine. - *Unlisted:(ceclor). - *Unlisted:(Zithromax). - *Unlisted:(simvastatin). CONCLUSIONS Summary Global left ventricular systolic function appears preserved with an estimated ejection fraction of 65%. The left ventricular cavity size is within normal limits and the left ventricular wall thickness is mildly increased. No definite specific wall motion abnormalities were identified. No significant valvular abnormalities. Evidence of mild (grade I) diastolic dysfunction is seen. Compared to the previous study of 02/24/2018, no significant changewas seen. Signature Vee ctronically signed by Fátima Adame(Corporate Statistical Financial Analyst) on 09/03/2019 10:00 AM 05:15 PM FINDINGS LeftAtrium Left atrium is normal in size. Left Ventricle Global left ventricular systolic function appears preserved with an estimated ejection fraction of 65%. The left ventricular cavity size is withinnormal limits and the left ventricular wall thickness is mildly increased. No definite specific wall motion abnormalities were identified. Right Atrium Right atrium is normal in size. Right VentricleNormal right ventricular size and function. Mitral Valve Normal mitral valve structure and function. Aortic Valve Normal aortic valve structure and function without stenosis or regurgitation. Tricuspid Valve Normal tricuspid valve structure and function. Pulmonic Valve Normal pulmonic valve structure with trivial pulmonic regurgitation. Pericardial Effusion No significant pericardial effusion is seen. Miscellaneous Evidence of mild (grade I) diastolic dysfunction is seen. Normal aortic root dimension. M-mode / 2D Measurements & Calculations: LVIDd:4.78 cm(3.7 - 5.6 cm) Diastolic Volume:69.2 ml LVIDs:3.6 cm(2.2 - 4.0 cm) Systolic Volume:23.3 ml IVSd:1.06 cm(0.6 - 1.1 cm) Aortic Root:3.13cm(2.0 - 3.7 cm) LVPWd:1.06 cm(0.6 - 1.1 cm) LA Dimension: 3.33 cm(1.9 - 4.0 cm) Fractional Shortenin.69 % LA volume/Index: 42.5 ml /23m^2 Calculated LVEF (%): 66.33 % AV Cusp Separation: 1.6 cm Mitral: Aortic Valve Area (P1/2-Time): 3.96 cm^2 Peak Velocity: 1.23 m/s Peak E-Wave: 0.69 m/s Mean V elocity: 0.93 m/s Peak A-Wave: 0.61 m/s Peak Gradient: 6.07 mmHg E/A Ratio: 1.13 Mean Gradient: 3.71 mmHg Peak Gradient: 1.91 mmHg Acceleration Time: 71.83 msec P1/2t: 55.55 msec AV VTI: 25.26 cm Diastology / Tissue Doppler Lateral Wall E' velocity:0.10 m/s Lateral Wall E/E':8.4[facility], [place], [place] Incoming Cardio Results From [facility]/[employer] - 09/03/2019 5:15 PM EDT [facility] Transthoracic Echocardiography Report (TTE) Patient Name SHER Date of Study 09/03/2019 JONATAN C Date of 1960 Gender Female Age 59 year(s) Race Room Number Height: 61 inch, 154.94 cm Corporate ID [id number] Weight: 187 pounds, 84.8 kg # Patient Acct [id number] BSA: 1.84 m^2 BMI: 35.33 # kg/m^2 MR # [id number] Corporate Statistical Financial Analyst Fátima Adame Interpreting Physician Josef Brooks Fellow Referring Nurse Practitioner Interpreting Referring Physician Josef Brooks Type of Study TTE procedure:2D Echocardiogram, M-Mode, Doppler, Color Doppler. Procedure Date Date: 09/03/2019 Start: 09:34 AM Study Location: [facility] Indications:Coronary Atherosclerosis. History / Tech. Comments: ASHD PMHX: HTN, Edema, DM, CAD, COPD Patient Status: Outpatient Height: 61 inches Weight: 187 pounds BSA: 1.84 m^2 BMI: 35.33 kg/m^2 BP: 106/65 mmHg Allergies - *Unlisted:(ceclor simvastatin). - Codeine. - *Unlisted:(ceclor). - *Unlisted:(Zithromax). - *Unlisted:(simvastatin). CONCLUSIONS Summary Global left ventricular systolic function appears preserved with an estimated ejection fraction of 65%. The left ventricular cavity size is within normal limits and the left ventricular wall thickness is mildly increased. No definite specific wall motion abnormalities were identified. No significant valvular abnormalities. Evidence of mild (grade I) diastolic dysfunction is seen. Compared to the previous study of 02/24/2018, no significant change was seen. Signature - - - - FINDINGS Left Atrium Left atrium is normal in size. Left Ventricle Global left ventricular systolic function appears preserved with an estimated ejection fraction of 65%. The left ventricular cavity size is within normal limits and the left ventricular wall thickness is mildly increased. No definite specific wall motion abnormalities were identified. Right Atrium Right atrium is normal in size. Right Ventricle Normal right ventricular size and function. Mitral Valve Normal mitral valve structure and function. Aortic Valve Normal aortic valve structure and function without stenosis or regurgitation. Tricuspid Valve Normal tricuspid valve structure and function. Pulmonic Valve Normal pulmonic valve structure with trivial pulmonic regurgitation. Pericardial Effusion No significant pericardial effusion is seen. Miscellaneous Evidence of mild (grade I) diastolic dysfunction is seen. Normal aortic root dimension. M-mode / 2D Measurements & Calculations: LVIDd:4.78 cm(3.7 - 5.6 cm) Diastolic Volume:69.2 ml LVIDs:3.6 cm(2.2 - 4.0 cm) Systolic Volume:23.3 ml IVSd:1.06 cm(0.6 - 1.1 cm) Aortic Root:3.13 cm(2.0 - 3.7 cm) LVPWd:1.06 cm(0.6 - 1.1 cm) LA Dimension: 3.33 cm(1.9 - 4.0 cm) Fractional Shortenin.69 % LA volume/Index: 42.5 ml /23m^2 Calculated LVEF (%): 66.33 % AV Cusp Separation: 1.6 cm Mitral: Aortic Valve Area (P1/2-Time): 3.96 cm^2 Peak Velocity: 1.23 m/s Peak E-Wave: 0.69 m/s Mean Velocity: 0.93 m/s Peak A-Wave: 0.61 m/s Peak Gradient: 6.07 mmHg E/A Ratio: 1.13 Mean Gradient: 3.71 mmHg Peak Gradient: 1.91 mmHg Acceleration Time: 71.83 msec P1/2t: 55.55 msec AV VTI: 25.26 cm Diastology / Tissue Doppler Lateral Wall E' velocity:0.10 m/s Lateral Wall E/E':8.4[facility], [facility] Metabolic Panel w/ Reflex to MGon [id number] gap [Moles/Vol]14 mmol/L9 - 17 mmol/[facility], [place] Bun/Cre RatioNOT REPORTEDPremier Health, KYCalcium [Mass/Vol]9.3 mg/dL8.6 - 10.4 mg/dLPremier Health, KYChloride [Moles/Vol]99 mmol/L98 - 107 mmol/[facility], KYCO2 [Moles/Vol]27 mmol/L20 - 31 mmol/[facility], [place] Creatinine [Mass/Vol]0.37 mg/dLLow0.5 - 0.9 mg/dLPremier Health, KYGFR >60>60 mL/minPremier Health, KYGFR Non->60>60 mL/min [facility], KYGFR/1.73 sq M predicted among non-blacks MDRD (S/P/Bld) [Vol rate/Area][facility], HIComment on above:Average GFR for 50-59 years old: 93 mL/min/1.73sq m Chronic Kidney Disease: <60 mL/min/1.73sq m Kidney failure: <15 mL/min/1.73sq m eGFR calculated using average adult body mass. Additional eGFR calculator available at: http://www.SynapDx/multiple_crcl_2012.htm GFR/1.73 sq M predicted among non-blacks MDRD (S/P/Bld) [Vol rate/Area]NOT REPORTEDPrem[facility], HIGlucose [Mass/Vol]144 mg/iNWbia61 - 99 mg/dLPremier Health, HIInterpretation and review of laboratory resultsAbnoNewark Hospital, KYPotassium [Moles/Vol]3.2 mmol/LLow3.7 - 5.3 mmol/LMOhio State Harding Hospital, KYSodium [Moles/Vol]140 mmol/L135 - 144 mmol/LMOhio State Harding Hospital, KYUrea nitrogen [Mass/Vol]20 mg/dL6 - 20 mg/dLPremier Health, KYMagnesiumon 02-02-3223Etgdczpgy [Mass/Vol]2.0 mg/dL1.6 - 2.6 mg/dLPremier Health, HIPOC Glucose Fingerstickon [id number] [Mass/Vol]233 mg/lWOlzs63 - 105 mg/dL [facility], HIInterpretation and review of laboratory resultsAbnoNewark Hospital, KYGlucose [Mass/Vol]175 mg/nCOsxd46 - 105 mg/dLPremier Health, [place] Interpretation and review of laboratory resultsAbnoNewark Hospital, HICBC auto differentialon [id number] (Bld) [#/Vol]0.00 10*3/[facility], KYBasophils/100 WBC (Bld)0 %0 - 2 %[facility], HIDifferential TypeNOT REPORTEDPrem[facility] Health, KYEosinophils (Bld) [#/Vol]0.00 10*3/[facility], HIEosinophils/100 WBC (Bld)0 %Low1 - 4 %[facility], HIErythrocyte distribution width (RBC) [Ratio]15.3 %High11.8 - 14.4 %[facility], [place] Hematocrit (Bld) [Volume fraction]52.0 %High36.3 - 47.1 %[facility], [place] Hemoglobin (Bld) [Mass/Vol]16.0 g/fPSabd99.9 - 15.1 g/dLKettering Health [facility]- [place], [place] Immature granulocytes (Bld) [#/Vol]0.00 10*3/uLKettering Health [facility]- [place], CARLOSImmature granulocytes (Bld) [#/Vol]0 %0[facility]- [place], KYInterpretation and review of laboratory resultsAbnormalPremier Health, KYLymphocytes (Bld) [#/Vol]1.92 10*3/uLKettering Health [facility]- [place], KYLymphocytes/100 WBC (Bld)17 %Low24 - 44 %[facility]- [place], KYMCH (RBC) [Entitic mass]27.0 pg25.2 - 33.5 pgKettering Health [place]- [place], [place] MCHC (RBC) [Mass/Vol]30.8 g/dL28.4 - 34.8 g/dLKettering Health [place]- [place], CARLOSMCV (RBC) [Entitic vol]87.7 fL82.6 - 102.9 fLPremier Health, CARLOSMonocytes (Bld) [#/Vol] 1.02 10*3/uLHenry [facility] Hospital- [place], KYMonocytes/100 WBC (Bld)9 %High1 - 7 %[facility], CARLOSMorphology Emmett (Bld) [Interp]ANISOCYTOSIS PRESENTKettering Health [place]burg- [place], CARLOSPlatelet mean volume (Bld) [Entitic vol]9.6 fL8.1 - 13.5 fLKettering Health [place]amisburg- [place], KYPlatelets (Bld) [#/Vol]NOT REPORTEDPrem[facility] Health, KYPlatelets (Bld) [#/Vol] 283 10*3/uLKettering Health [facility]- [place], KYRBC (Bld) [#/Vol]5.93 10*6/uLHigh3.95 - 5.11 m/uL [facility]- [place], KYRBC morphology finding Nom (Bld)NOT REPORTEDPrem[facility] Health, CARLOSSegmented neutrophils/100 WBC (Bld)74 %High36 - 66 %[facility], [place] Segs Absolute8.36HighKettering Health [facility]- [place], KYWBC (Bld) [#/Vol]11.3 10*3/uLKettering Health [facility]- [place], KYWBC (Bld) [#/Vol]0.0 10*3/uL0.0 per 100 WBCPremier Health, KYWBC MorphologyNOT REPORTEDPremier Health, KYCulture, Blood 2on [id number] NO GROWTH 6 DAYSPremier Health, HISpecial RequestsNO INFO GIVENPremier Health, KYSpecimen Description.BLOODPremier Health, HIPO Glucose Fingerstickon [id number] [Mass/Vol]149 mg/fUPuze22 - 105 mg/dLPremier Health, [place] Interpretation and review of laboratory resultsAbnoNewark Hospital, [place] Glucose [Mass/Vol]235 mg/iZHgvs03 - 105 mg/dLPremier Health, HIInterpretation and review of laboratory resultsAbnoNewark Hospital, HIGlucose [Mass/Vol] 196 mg/nRGatt72 - 105 mg/dLPremier Health, KYInterpretation and review of laboratory resultsAbnoNewark Hospital, KYGlucose [Mass/Vol]143 mg/nYGkgt15 - 105 mg/dLPremier Health, KYInterpretation and review of laboratory results AbnormalPremier Health, HIBasic Metabolic Panel w/ Reflex to MGon 07-23-2019 Anion gap [Moles/Vol]13 mmol/L9 - 17 mmol/LMOhio State Harding Hospital, KYBun/Cre RatioNOT REPORTEDPrem[facility] Health, KYCalcium [Mass/Vol]8.9 mg/dL8.6 - 10.4 mg/dLPremier Health, KYChloride [Moles/Vol]101 mmol/L98 - 107 mmol/LMOhio State Harding Hospital, [place] CO2 [Moles/Vol]25 mmol/L20 - 31 mmol/LMOhio State Harding Hospital, KYCreatinine [Mass/Vol] 0.35 mg/dLLow0.5 - 0.9 mg/dLPremier Health, KYGFR >60>60 mL/minPremier Health, KYGFR Non->60>60 mL/minPremier Health, KYGFR/1.73 sq M predicted among non-blacks MDRD (S/P/Bld) [Vol rate/Area][facility], KYComment on above:Average GFR for 50-59 years old: 93 mL/min/1.73sq m Chronic Kidney Disease: <60 mL/min/1.73sq m Kidney failure: <15 mL/min/1.73sq m eGFR calculated using average adult body mass. Additional eGFR calculator available at: http://www.SynapDx/multiple_crcl_2012.htm GFR/1.73 sq M predicted among non-blacks MDRD (S/P/Bld) [Vol rate/Area]NOT REPORTEDPrem[facility] Health, KYGlucose [Mass/Vol]144 mg/sQHdin85 - 99 mg/dLPremier Health, KYInterpretation and review of laboratory resultsAbnoNewark Hospital, KYPotassium [Moles/Vol]4.1 mmol/L3.7 - 5.3 mmol/LMOhio State Harding Hospital, KYSodium [Moles/Vol]139 mmol/L135 - 144 mmol/[facility], KYUrea nitrogen [Mass/Vol]30 mg/dLHigh6 - 20 mg/dLPremier Health, KYPOC Glucose Fingerstickon [id number] [Mass/Vol]230 mg/sQHugb81 - 105 mg/dLPremier Health, [place] Interpretation and review of laboratory resultsAbnoNewark Hospital, [place] Glucose [Mass/Vol]200 mg/jXOatl12 - 105 mg/dLPremier Health, KYInterpretation and review of laboratory resultsAbnoNewark Hospital, KYGlucose [Mass/Vol] 184 mg/xRAlhg14 - 105 mg/dLPremier Health, HIInterpretation and review of laboratory resultsAbnoNewark Hospital, HIBasic Metabolic Panel w/ Reflex to MGon [id number] gap [Moles/Vol]15 mmol/L9 - 17 mmol/LMOhio State Harding Hospital, [place] Bun/Cre RatioNOT REPORTEDPrem[facility] Health, KYCalcium [Mass/Vol]8.7 mg/dL8.6 - 10.4 mg/dLPremier Health, KYChloride [Moles/Vol]103 mmol/L98 - 107 mmol/LMOhio State Harding Hospital, KYCO2 [Moles/Vol]23 mmol/L20 - 31 mmol/LMMercy Health [address]- [place], [place] Creatinine [Mass/Vol]0.47 mg/dLLow0.5 - 0.9 mg/dLPremier Health, KYGFR >60>60 mL/minPremier Health, KYGFR Non->60>60 mL/min [facility], KYGFR/1.73 sq M predicted among non-blacks MDRD (S/P/Bld) [Vol rate/Area]NOT REPORTEDPrem[facility] Health, KYGFR/1.73 sq M predicted among non- blacks MDRD (S/P/Bld) [Vol rate/Area][facility], KYComment on above: Average GFR for 50-59 years old: 93 mL/min/1.73sq m Chronic Kidney Disease: <60 mL/min/1.73sq m Kidney failure: <15 mL/min/1.73sq m eGFR calculated using average adult body mass. Additional eGFR calculator available at: http://www.SynapDx/multiple_crcl_2012.htm Glucose [Mass/Vol]150 mg/tLLtos76 - 99 mg/dLPremier Health, KYInterpretation and review of laboratory resultsAbnormalPremier Health, KYPotassium [Moles/Vol]4.1 mmol/L3.7 - 5.3 mmol/[facility], KYSodium [Moles/Vol]141 mmol/L135 - 144 mmol/[facility], KYUrea nitrogen [Mass/Vol]29 mg/dLHigh6 - 20 mg/dLPremier Health, KYCBC auto differentialon [id number] (Bld) [#/Vol]10*3/[facility], KYBasophils/100 WBC (Bld)0 %0 - 2 %[facility], KYDifferential TypeNOT REPORTEDPrem[facility], KYEosinophils (Bld) [#/Vol]10*3/uLPremier Health, KYEosinophils/100 WBC (Bld)0 %Low1 - 4 %[facility], HIErythrocyte distribution width (RBC) [Ratio]15.9 %High11.8 - 14.4 %[facility], HIHematocrit (Bld) [Volume fraction]48.9 %High36.3 - 47.1 % [facility], HIHemoglobin (Bld) [Mass/Vol]14.9 g/dL11.9 - 15.1 g/dLPremier Health, HIImmature granulocytes (Bld) [#/Vol]1 %Ojtr8YgsjgPremier Health, [place] Immature granulocytes (Bld) [#/Vol]0.06 10*3/uLKettering [facility]- [place], [place] Interpretation and review of laboratory resultsAbnormalPremier Health, [place] Lymphocytes (Bld) [#/Vol]1.16 10*3/[facility] [place], HILymphocytes/100 WBC (Bld)10 %Low24 - 43 %[facility], HIMCH (RBC) [Entitic mass]27.8 pg25.2 - 33.5 pgPremier Health, HIMCHC (RBC) [Mass/Vol]30.5 g/dL28.4 - 34.8 g/dLPremier Health, HIMCV (RBC) [Entitic vol]91.2 fL82.6 - 102.9 fLPremier Health, [place] Monocytes (Bld) [#/Vol]1.44 10*3/uLHighPremier Health, HIMonocytes/100 WBC (Bld)12 %3 - 12 %[facility], HIPlatelet mean volume (Bld) [Entitic vol]9.7 fL8.1 - 13.5 fLPremier Health, KYPlatelets (Bld) [#/Vol]257 10*3/[facility]- [place], KYPlatelets (Bld) [#/Vol]NOT REPORTEDPrem[facility], HIRBC (Bld) [#/Vol]5.36 10*6/uLHigh3.95 - 5.11 m/uLPremier Health, HIRBC morphology finding Nom (Bld)ANISOCYTOSIS PRESENTPremier Health, HISegmented neutrophils/100 WBC (Bld)78 %High36 - 65 %[facility], KYSegs Absolute9.44 HighPremier Health, HIWBC (Bld) [#/Vol]12.1 10*3/uLOhio State Harding Hospital, HIWBC (Bld) [#/Vol]0.0 10*3/uL0.0 per 100 WBCPremier Health, KYWBC MorphologyNOT REPORTEDPrem[facility] Health, KYMYCOPLASMA PNEUMONIAE ANTIBODY, IGMon 07-22-2019 Mycoplasma pneumo IgM0.85<0.91[facility], KYComment on above: Reference Range: <=0.90 Negative 0.91-1.09 Equivocal >=1.10 Positive POC Glucose Fingerstickon 90-00-9190Onmpvzq [Mass/Vol]244 mg/lMAqbe21 - 105 mg/dLPremier Health, KYInterpretation and review of laboratory resultsAbnoal [facility], KYGlucose [Mass/Vol]154 mg/qZVkcc36 - 105 mg/dLPremier Health, KYInterpretation and review of laboratory resultsAbnoNewark Hospital, KYGlucose [Mass/Vol]209 mg/kEEeho50 - 105 mg/dLPremier Health, [place] Interpretation and review of laboratory resultsAbBarnesville Hospital, [place] Glucose [Mass/Vol]158 mg/yRCfti24 - 105 mg/dLPremier Health, KYInterpretation and review of laboratory resultsAbnoNewark Hospital, KYBasic Metabolic Panel w/ Reflex to MGon [id number] gap [Moles/Vol]12 mmol/L9 - 17 mmol/L [facility], KYBun/Cre RatioNOT REPORTEDPrem[facility] Health, KYCalcium [Mass/Vol]8.8 mg/dL8.6 - 10.4 mg/dLPremier Health, KYChloride [Moles/Vol]97 mmol/LLow98 - 107 mmol/LMOhio State Harding Hospital, KYCO2 [Moles/Vol]29 mmol/L20 - 31 mmol/LMOhio State Harding Hospital, KYCreatinine [Mass/Vol]0.5 mg/dL0.5 - 0.9 mg/dLKettering Health [facility]- [place], KYGFR >60>60 mL/minK[facility]- [place], KYGFR Non- >60>60 mL/minK[facility] Health [facility]- [place], KYGFR/1.73 sq M predicted among non-blacks MDRD (S/P/Bld) [Vol rate/Area]NOT REPORTEDKettering Health [place]- [place], [place] GFR/1.73 sq M predicted among non-blacks MDRD (S/P/Bld) [Vol rate/Area][facility], KYComment on above:Average GFR for 50-59 years old: 93 mL/min/1.73sq m Chronic Kidney Disease: <60 mL/min/1.73sq m Kidney failure: <15 mL/min/1.73sq m eGFR calculated using average adult body mass. Additional eGFR calculator available at: http://www.SynapDx/multiple_crcl_2011.htm Glucose [Mass/Vol]169 mg/iHHzuw40 - 99 mg/dLPremier Health, KYInterpretation and review of laboratory resultsAbnormalKettering Health [facility]- [place], KYPotassium [Moles/Vol]3.6 mmol/LLow3.7 - 5.3 mmol/LMMercy Health St. [facility]- [place], KYSodium [Moles/Vol] 138 mmol/L135 - 144 mmol/LMMercy Health [address] [facility]- [place], KYUrea nitrogen [Mass/Vol]33 mg/dL High6 - 20 mg/dLPremier Health, KYCB auto differentialon [id number] (Bld) [#/Vol]0.00 10*3/uLKettering Health [facility]- [place], KYBasophils/100 WBC (Bld)0 %0 - 2 % [facility], KYDifferential TypeNOT REPORTEDKettering Health [facility]- [place], KYEosinophils (Bld) [#/Vol]0.00 10*3/uLKettering Health [facility]- [place], KYEosinophils/100 WBC (Bld)0 %Low1 - 4 %[facility]- [place], KYErythrocyte distribution width (RBC) [Ratio]15.7 %High 11.8 - 14.4 %[facility]- [place], KYHematocrit (Bld) [Volume fraction]45.3 %36.3 - 47.1 %[place], KYHemoglobin (Bld) [Mass/Vol]14.0 g/dL11.9 - 15.1 g/dL [facility], HIImmature granulocytes (Bld) [#/Vol]0 %0[facility], [place] Immature granulocytes (Bld) [#/Vol]0.00 10*3/uLPremier Health, [place] Interpretation and review of laboratory resultsAbnormalPremier Health, [place] Lymphocytes (Bld) [#/Vol]0.44 10*3/uLLowPremier Health, HILymphocytes/100 WBC (Bld)4 %Low24 - 44 %[facility], HIMCH (RBC) [Entitic mass]27.0 pg25.2 - 33.5 pgCinc[place], KYMCHC (RBC) [Mass/Vol]30.9 g/dL28.4 - 34.8 g/dLCincinnati, KYMCV (RBC) [Entitic vol]87.3 fL82.6 - 102.9 fLCincinnati, [place] Monocytes (Bld) [#/Vol]0.22 10*3/[facility], HIMonocytes/100 WBC (Bld)2 %1 - 7 %[place], KYMorphology Emmett (Bld) [Interp]ANISOCYTOSIS PRESENT [place], KYPlatelet mean volume (Bld) [Entitic vol]9.4 fL8.1 - 13.5 fL [facility], HIPlatelets (Bld) [#/Vol]NOT REPORTEDC[place], [place] Platelets (Bld) [#/Vol]270 10*3/uLPremier Health, HIRBC (Bld) [#/Vol]5.19 10*6/uLHigh3.95 - 5.11 m/[facility], HIRBC morphology finding Nom (Bld) NOT REPORTEDPrem[facility], HISegmented neutrophils/100 WBC (Bld)94 %High36 - 66 %[facility], HISegs Lsqfefbw47.24HighPremier Health, HIWBC (Bld) [#/Vol]10.9 10*3/uLPremier Health, CORCORAN DISTRICT HOSPITALBC (Bld) [#/Vol]0.0 10*3/uL0.0 per 100 WBCPremier Health, HIWBC MorphologyNOT REPORTEDPremier Health, HIEKG 12 Lead on 05-70-9185Lobjhk Gjoq13YVKAqsdyOhio State Harding Hospital, HIP Bjeo71oeltbzcQqhkaFirelands Regional Medical Center, HIP-R Xixziykx979 [facility], KYQ-T Gngnpjum190 [facility], KYQRS Lqowplxc18 [facility], HIQTc Calculation (Bazett)429 [facility], HIR [place]-82degrFirelands Regional Medical Center, KYT Ihxb40ijggaceVxdmzFirelands Regional Medical Center, HIVentricular Lprv78TAXNhzauOhio State Harding Hospital, KYEdi, Mhpn Incoming Ekg Results [place] [facility] [place] 1:17 PM EDT Normal sinus rhythm Biatrial enlargement Indeterminate axis Pulmonary disease pattern Incomplete right bundle branch block Cannot rule out Inferior infarct , age undetermined Abnormal ECG No previous ECGs availablePremier Health, KYNormal sinus rhythm Biatrial enlargement Indeterminate axis Pulmonary disease pattern Incomplete right bundle branch block Cannot rule out Inferior infarct , age undetermined Abnormal ECG No previousECGs availablePremier Health, HIHEMOGLOBIN AND HEMATOCRIT, BLOODon [id number] (Bld) [Volume fraction]47.3 %High36.3 - 47.1 %[place], KYHemoglobin (Bld) [Mass/Vol]14.6 g/dL11.9 - 15.1 g/dLPremier Health, [place] Interpretation and review of laboratory resultsAbnormalPremier Health, HIMRSA DNA Probe, Nasalon [id number], DNA, NasalNEGATIVE: MRSA DNA not detected by nucleic acid amplification.NEGATIVE: MRSA DNA not detected by nucleic acid amplificatiCincinnati, KYComment on above: Results should be used as an adjunct to nosocomial control efforts to identify patients needing enhanced precautions. The test is not intended to identify patients with staphylococcal infections. Results should not be used to guide or monitor treatment for MRSA infections. Specimen Description.NASAL SWABPremier Health, HIPOC Glucose Fingerstickon [id number] [Mass/Vol]191 mg/rEIshw78 - 105 mg/dLPremier Health, [place] Interpretation and review of laboratory resultsAbnoNewark Hospital, [place] Glucose [Mass/Vol]152 mg/oRVuiy60 - 105 mg/dLPremier Health, KYInterpretation and review of laboratory resultsAbnoNewark Hospital, KYGlucose [Mass/Vol] 207 mg/aFLioi54 - 105 mg/dLPremier Health, KYInterpretation and review of laboratory resultsAbnormBluffton Hospital, KYGlucose [Mass/Vol]160 mg/pTZpsb47 - 105 mg/dLPremier Health, KYInterpretation and review of laboratory results AbnormalPremier Health, HIBasic Metabolic Panel w/ Reflex to MGon 07-20-2019 Anion gap [Moles/Vol]12 mmol/L9 - 17 mmol/LMOhio State Harding Hospital, KYBun/Cre RatioNOT REPORTEDPremier Health, KYCalcium [Mass/Vol]8.4 mg/dLLow8.6 - 10.4 mg/dLPremier Health, KYChloride [Moles/Vol]98 mmol/L98 - 107 mmol/[facility], [place] CO2 [Moles/Vol]26 mmol/L20 - 31 mmol/[facility], KYCreatinine [Mass/Vol] 0.67 mg/dL0.5 - 0.9 mg/dLPremier Health, KYGFR >60>60 mL/min [facility], KYGFR Non->60>60 mL/minPremier Health, [place] GFR/1.73 sq M predicted among non-blacks MDRD (S/P/Bld) [Vol rate/Area]NOT REPORTEDPremier Health, KYGFR/1.73 sq M predicted among non-blacks MDRD (S/P/Bld) [Vol rate/Area][facility], KYComment on above:Average GFR for 50-59 years old: 93 mL/min/1.73sq m Chronic Kidney Disease: <60 mL/min/1.73sq m Kidney failure: <15 mL/min/1.73sq m eGFR calculated using average adult body mass. Additional eGFR calculator available at: http://www.SynapDx/multiple_crcl_2011.htm Glucose [Mass/Vol]190 mg/aBAkvc36 - 99 mg/dLKettering Health [facility]- [place], KYPotassium [Moles/Vol]3.9 mmol/L3.7 - 5.3 mmol/LMMercy Health St. [facility]- [place], KYSodium [Moles/Vol]136 mmol/L135 - 144 mmol/LMMer[address] [facility]- [place], KYUrea nitrogen [Mass/Vol]30 mg/dLHigh6 - 20 mg/dLMorrow County Hospital [place], KYCBC auto differentialon [id number] (Bld) [#/Vol]0.00 10*3/uLKettering Health [facility]- [place], KYBasophils/100 WBC (Bld)0 %0 - 2 %[facility], KYDifferential TypeNOT REPORTEDMorrow County Hospital [place], KYEosinophils (Bld) [#/Vol]0.00 10*3/[facility] [place], KYEosinophils/100 WBC (Bld)0 %Low1 - 4 % [facility]- [place], KYErythrocyte distribution width (RBC) [Ratio]15.5 %High11.8 - 14.4 %[facility] [place], KYHematocrit (Bld) [Volume fraction]44.6 %36.3 - 47.1 % [facility], KYHemoglobin (Bld) [Mass/Vol]13.8 g/dL11.9 - 15.1 g/dLMorrow County Hospital [place], KYImmature granulocytes (Bld) [#/Vol]0.00 10*3/[facility]- [place], KYImmature granulocytes (Bld) [#/Vol]0 %0[facility]- [place], KYInterpretation and review of laboratory resultsAbnormalMorrow County Hospital [place], KYLymphocytes (Bld) [#/Vol]0.44 10*3/uLLowKettering Health [facility]- [place], KYLymphocytes/100 WBC (Bld)4 %Low24 - 44 %[facility]- [place], [facility]USH (RBC) [Entitic mass]26.9 pg25.2 - 33.5 pgKettering Health [place]- [place], [facility] ALTUSHC (RBC) [Mass/Vol]30.9 g/dL28.4 - 34.8 g/dLKettering Health [place]- [place], [facility] – ALTUSV (RBC) [Entitic vol]86.9 fL82.6 - 102.9 fLKettering Health [facility]- [place], KYMonocytes (Bld) [#/Vol]0.11 10*3/uLKettering Health [facility]- [place], HIMonocytes/100 WBC (Bld)1 %1 - 7 %[facility]- [place], HIMorphology Emmett (Bld) [Interp]ANISOCYTOSIS PRESENTKettering Health [facility]- [place], HIPlatelet mean volume (Bld) [Entitic vol]9.4 fL8.1 - 13.5 fLKettering Health [facility]- [place], HIPlatelets (Bld) [#/Vol]NOT REPORTEDK[facility] Health [facility]- [place], HIPlatelets (Bld) [#/Vol] 298 10*3/uLK[facility]- [place], HIRBC (Bld) [#/Vol]5.13 10*6/uLHigh3.95 - 5.11 m/uL [facility]- [place], HIRBC morphology finding Nom (Bld)NOT REPORTEDK[facility]tering Health [facility]- [place], HISegmented neutrophils/100 WBC (Bld)95 %High36 - 66 %[facility]- [place], [place] Segs Yjmdsagq11.35HighKettering Health [facility]- [place], HIWBC (Bld) [#/Vol]10.9 10*3/uLK[facility] Health [facility]- [place], HIWBC (Bld) [#/Vol]0.0 10*3/uL0.0 per 100 WBCDiley [facility] Health- [place], HIWBC MorphologyNOT REPORTEDKettering Health [facility]- [place], HIEK 12 Leadon [id number] Rate67 BPMDiley Ridge Medical Center Health- [place], KYP Dvve14jsmujfdJsohm Health- [place], HIP-R Vfmlypdc745 ms [facility]- [place], HIQ-T Ymqjgkeu567 [facility]- [place], KYQRS Jwzznxed60 [facility]- [place], HIQTc Calculation (Ara)431 msMOhio State Harding Hospital, KYR [place]-60 degreesPremier Health, KYT Dywo24ztqyypjWfgfn Health- [place], HIVentricular Rate67 BPMPremier Health, KYEdi, Mhpn Incoming Ekg Results [place] [facility] [place] 1:04 PM EDT Normal sinus rhythm Possible Left atrial enlargement Left axis deviation Pulmonary disease pattern Abnormal ECG When compared with ECG of 24-JUN-2013 16:48, No significant change was foundPremier Health, [facility]ITALormal sinus rhythm Possible Left atrial enlargement Left axis deviation Pulmonary disease pattern Abnormal ECG When compared with ECG of 24-JUN-2013 16:48, No significant change was found [facility], KYOtheron [id number] and review of laboratory resultsAbBarnesville Hospital, HIPOC Glucose Fingerstickon 20-63-1670Wtwnjam [Mass/Vol]217 mg/eERetu77 - 105 mg/dLPremier Health, HIInterpretation and review of laboratory resultsAbPonce, KYGlucose [Mass/Vol]204 mg/kQEcwo85 - 105 mg/dLPremier Health, HIInterpretation and review of laboratory resultsAbBarnesville Hospital, HIGlucose [Mass/Vol]189 mg/hUYepb52 - 105 mg/dLPremier Health, HIInterpretation and review of laboratory results AbnormalPremier Health, HIGlucose [Mass/Vol]195 mg/bLZcva17 - 105 mg/dLPremier Health, HIInterpretation and review of laboratory resultsAbPonce, KYGlucose [Mass/Vol]199 mg/gHOafv36 - 105 mg/dLPremier Health, [place] Interpretation and review of laboratory resultsAbBarnesville Hospital, [place] TRIGLYCERIDESon 35-04-4085Jwjlsjldnuat [Mass/Vol]224 mg/dLHigh<150[place], KYComment on above: Triglyceride Guidelines: <150 Desirable 150-199 Borderline 200-499 High >499 Very high Based on AHA Guidelines for fasting triglyceride, December 2011. Basic Metabolic Panel w/ Reflex to MGon [id number] gap [Moles/Vol]16 mmol/L 9 - 17 mmol/LMOhio State Harding Hospital, KYBun/Cre RatioNOT REPORTEDMerQuincy Valley Medical Center- [place], [place] Calcium [Mass/Vol]8.6 mg/dL8.6 - 10.4 mg/dLK[facility]tering Health [facility]- [place], [place]Chloride [Moles/Vol]97 mmol/LLow98 - 107 mmol/LMadena [facility]- [place], KYCO2 [Moles/Vol]24 mmol/L20 - 31 mmol/LMadena [facility]- [place], [place]Creatinine [Mass/Vol]0.71 mg/dL0.5 - 0.9 mg/dLK[facility]- [place], KYGFR >60>60 mL/minKettering Health [place]- [place], [place] GFR Non->60>60 mL/minKettering Health [place]- [place], KYGFR/1.73 sq M predicted among non-blacks MDRD (S/P/Bld) [Vol rate/Area]NOT REPORTEDPremier Health, [place] GFR/1.73 sq M predicted among non-blacks MDRD (S/P/Bld) [Vol rate/Area][facility], KYComment on above:Average GFR for 50-59 years old: 93 mL/min/1.73sq m Chronic Kidney Disease: <60 mL/min/1.73sq m Kidney failure: <15 mL/min/1.73sq m eGFR calculated using average adult body mass. Additional eGFR calculator available at: http://www.[employer]/multiple_crcl_2012.htm Glucose [Mass/Vol]178 mg/yHQrtv33 - 99 mg/dLPremier Health, KYPotassium [Moles/Vol]4.0 mmol/L3.7 - 5.3 mmol/LMMercy Health [facility]- [place], [place]YSodium [Moles/Vol]137 mmol/L135 - 144 mmol/LMadena [facility]- [place], KYUrea nitrogen [Mass/Vol]23 mg/dLHigh6 - 20 mg/dLKettering Health [facility]- [place], KYC-Reactive Proteinon [id number] [Mass/Vol]55.6 mg/LHigh0 - 5 mg/LMadena [facility]- [place], KYCBC auto differentialon 07-19-2019 Basophils (Bld) [#/Vol]0.00 10*3/uLKettering Health [facility]- [place], KYBasophils/100 WBC (Bld)0 %0 - 2 %[facility], KYDifferential TypeNOT REPORTEDPremier Health, [place] Eosinophils (Bld) [#/Vol]0.00 10*3/[facility] [place], KYEosinophils/100 WBC (Bld)0 %Low1 - 4 %[facility], HIErythrocyte distribution width (RBC) [Ratio]15.2 %High11.8 - 14.4 %[facility], KYHematocrit (Bld) [Volume fraction]47.7 %High36.3 - 47.1 %[facility], CARLOSHemoglobin (Bld) [Mass/Vol] 14.6 g/dL11.9 - 15.1 g/dLPremier Health, CARLOSImmature granulocytes (Bld) [#/Vol] 0 %0[facility], CARLOSImmature granulocytes (Bld) [#/Vol]0.00 10*3/[facility], CARLOSInterpretation and review of laboratory resultsAbnormalPremier Health, CARLOSLymphocytes (Bld) [#/Vol]0.89 10*3/uLLowPremier Health, [place] Lymphocytes/100 WBC (Bld)9 %Low24 - 44 %[facility], KYMCH (RBC) [Entitic mass]27.1 pg25.2 - 33.5 pgPremier Health, HIMCHC (RBC) [Mass/Vol]30.6 g/dL28.4 - 34.8 g/dLPremier Health, HIMCV (RBC) [Entitic vol]88.7 fL82.6 - 102.9 fL [facility], KYMonocytes (Bld) [#/Vol]0.10 10*3/[facility], [place] Monocytes/100 WBC (Bld)1 %1 - 7 %[facility], HIMorphology Emmett (Bld) [Interp]ANISOCYTOSIS PRESENTPremier Health, HIPlatelet mean volume (Bld) [Entitic vol]9.5 fL8.1 - 13.5 fLPremier Health, KYPlatelets (Bld) [#/Vol]NOT REPORTEDPremier HealthCARLOSPlatelets (Bld) [#/Vol]307 10*3/uLPremier Health HIRBC (Bld) [#/Vol]5.38 10*6/uLHigh3.95 - 5.11 m/uLPremier Health [facility] morphology finding Nom (Bld)NOT REPORTEDPremier HealthCARLOSgmented neutrophils/100 WBC (Bld)90 %High36 - 66 %[facility] HealthCARLOSSegs Absolute8.91 HighPremier Health, CARLOSWBC (Bld) [#/Vol]9.9 10*3/uLPremier Health, CARLOSWBC (Bld) [#/Vol]0.0 10*3/uL0.0 per 100 WBCPremier Health HIWBC MorphologyNOT REPORTEDMorrow County Hospital CARLOS GUTIERREZCOVID-[id number]-CoV-2Not DetectedNot DetectedPremier HealthCARLOSComment on above: The specimen is NEGATIVE for SARS-CoV-2, the novel coronavirus associated with COVID-19. A negative result does not rule out COVID-19. This test has been authorized by the FDA under an Emergency Use Authorization (EUA) for use by authorized laboratories. Fact sheet for Healthcare Providers: https://www.fda.gov/media/496522/download Fact sheet for Patients: https://www.fda.gov/media/073534/download METHODOLOGY: RT-PCR SARS-CoV-2, PCRPrem[facility].NASOPHARYNGEAL SWABPremier HealthCARLOSCulture, Blood 1on 96-04-2524VkqxnmnGZ SAMPLE RECEIVEDRegency Hospital Toledo CARLOS Special RequestsNOT REPORTEDPremier HealthCARLOSSpecimen Description.BLOODPremier HealthCARLOSLactic acid, plasmaon 12-81-4103Voaqvqv [Moles/Vol]NOT REPORTED mmol/LMercViera Hospital, CARLOSLactic Acid, Whole Blood2.1 mmol/L0.7 - 2.1 mmol/L [facility], CARLOSOtheron 83-42-1403Zvpslmtkqmuvpm and review of laboratory resultsAbnormalPremier Health, HIPO Glucose Fingerstickon 25-15-3070Qgfliao [Mass/Vol]208 mg/mFUagy40 - 105 mg/dLPremier Health, HIInterpretation and review of laboratory resultsAbnormalPremier Health, HIGlucose [Mass/Vol]188 mg/zBMcuk20 - 105 mg/dLPremier Health, HIInterpretation and review of laboratory resultsAbnormalPremier Health, HIGlucose [Mass/Vol]181 mg/sGLtum40 - 105 mg/dLPremier Health, HIInterpretation and review of laboratory results AbnormalPremier Health, HIRespiratory Virus PCR Panelon 59-95-8282Vbpwvsfudr PCRNot DetectedNot DetectedPremier Health, HIB Pertussis by PCRNot DetectedNot DetectedPrem[facility] Health, HIBordetella ParapertussisNot DetectedNot Detected [facility], HIChlamydia pneumoniae By PCRNot DetectedNot DetectedPremier Health, HICoronavirus 229E PCRNot DetectedNot DetectedPrem[facility] Health, [place] Comment on above:Coronoviruses detected by this panel are those associated with the clinical common cold. This test will not detect 5020-OOVU-DZP-2 or other novel coronaviruses. Coronavirus HKU1 PCRNot DetectedNot DetectedPremier Health, HIComment on above:Coronoviruses detected by this panel are those associated with the clinical common cold. This test will not detect 3831-HGBV-BJV-2 or other novel coronaviruses. Coronavirus NL63 PCRNot DetectedNot DetectedCincinnati, KYComment on above:Coronoviruses detected by this panel are those associated with the clinical common cold. This test will not detect 6159-WTFC-IYV-2 or other novel coronaviruses. Coronavirus OC43 PCRNot DetectedNot DetectedPremier Health, HIComment on above:Coronoviruses detected by this panel are those associated with the clinical common cold. This test will not detect 6164-HQJY-CUD-2 or other novel coronaviruses. Human Metapneumovirus PCRNot DetectedNot DetectedPrem[facility] Health, HIInfluenza A by PCRNot DetectedNot DetectedPrem[facility], HIInfluenza A H1 (2009) PCRNOT REPORTEDNot DetectedPrem[facility] Health, KYInfluenza A H1 PCRNOT REPORTEDNot DetectedMercy Health- [place], KYInfluenza A H3 PCRNOT REPORTEDNot DetectedMercy Health- [place], KYInfluenza B by PCRNot DetectedNot DetectedMercy Health- [place], [place] Mycoplasma pneumo by PCRNot DetectedNot DetectedMercy Health- [place], KYComment on above:Performed by multiplexed nucleic acid assay.Parainfluenza 1 PCRNot DetectedNot DetectedMercy Health- [place], KYParainfluenza 2 PCRNot DetectedNot DetectedMercy Health- [place], KYParainfluenza 3 PCRNot DetectedNot DetectedMercy Health- [place], KYParainfluenza 4 PCRNot DetectedNot DetectedMercy Health- [place], [place] Resp Syncytial Virus PCRNot DetectedNot DetectedMercy Health- [place], [place] Rhino/Enterovirus PCRNot DetectedNot DetectedMercy Health- [place], HISpecimen Description.NASOPHARYNGEAL SWABMercy Health- [place], [facility] with Reflexon 07-19-2019 TSH Qn0.95 m[IU]/LMercy Health- [place], KYAnion Gap (Calc) POCon 59-75-4356Bxsmp gap [Moles/Vol]10 mmol/L7 - 16 mmol/LMercy Health- [place], HIArterial Blood Gas, POCon 97-99-2314Eapcb TestNOT REPORTEDMercy Health- [place], HIaPTT Coag (Bld) [Time]NOT REPORTEDMer[facility] Health- [place], [id number] REPORTEDMer[facility]- [place], KYModeNOT REPORTED [facility]- [place], KYNegative Base Excess, ArtNOT REPORTEDMercy Health- [place], HIO2 Device/Flow/%NOT REPORTEDMercy Health- [place], KYOxygen saturation in Blood92 %Low94 - 98 %[facility]- [place], HIPOC OPI132.9 mmol/LHigh21 - 28 mmol/LMer[facility]- [place], HIPO cYZ266.4[facility]- [place], [facility] pCO2 TempNOT REPORTEDmm HgMercy Health- [place], HIPO pH7.455HighMercy Health- [place], HIPO pH TempNOT REPORTEDMercy Health- [place], [facility] PO261.7LowMercy Health- [place], [facility] pO2 TempNOT REPORTEDmm Hg [facility]- [place], HIPositive Base Excess, Ykt0VwdxTanef Health- [place], KYSale SiteNOT REPORTEDMercy Health- [place], KYTCO2 (calc), Art33 mmol/LHigh22 - 29 mmol/L [facility]- [place], KYAllen TestNOT REPORTEDMer[facility] Health- [place], KYaPTT Coag (Bld) [Time]NOT REPORTEDMer[facility] Health- [place], [id number] REPORTEDMer[facility]- [place], KYMode NOT REPORTEDMer[facility]- [place], KYNegative Base Excess, ArtNOT REPORTEDMer[facility] Health- [place], KYO2 Device/Flow/%NOT REPORTEDMer[facility]- [place], KYOxygen saturation in Blood99 %High94 - 98 %[facility]- [place], KYPOC HRS790.1 mmol/LHigh21 - 28 mmol/LMer[facility]- [place], KYPOC tFR543.9HighMercy Health- [place], HIPOC pCO2 TempNOT REPORTEDmm HgMercy Health- [place], KYPOC pH7.353[facility]- [place], KYPOC pH TempNOT REPORTEDMer[facility] Health- [place], KYPOC CA2264.5HighMercy Health- [place], HIPOC pO2 TempNOT REPORTEDmm HgMercy Health- [place], KYPositive Base Excess, Azm7PdroVkqgc Health- [place], [facility] SiteNOT REPORTEDMercy Health- [place], KYTCO2 (calc), Art38 mmol/LHigh22 - 29 mmol/LMercy Health- [place], KYBasic Metabolic Panel w/ Reflex to MGon 07-18-2019 Anion gap [Moles/Vol]25 mmol/LHigh9 - 17 mmol/LMercy [facility]- [place], KYBun/Cre Ratio NOT REPORTEDMercy Health- [place], KYCalcium [Mass/Vol]9.2 mg/dL8.6 - 10.4 mg/dLMercy Health- [place], KYChloride [Moles/Vol]96 mmol/LLow98 - 107 mmol/LMercy Health- [place], KYCO2 [Moles/Vol]25 mmol/L20 - 31 mmol/LMer[facility]- [place], KYCreatinine [Mass/Vol]0.64 mg/dL0.5 - 0.9 mg/dLMercy Health- [place], KYGFR >60 >60 mL/minMercy Health- [place], KYGFR Non->60>60 mL/minMercy Health- [place], CARLOSGFR/1.73 sq M predicted among non-blacks MDRD (S/P/Bld) [Vol rate/Area] [facility], HIComment on above:Average GFR for 50-59 years old: 93 mL/min/1.73sq m Chronic Kidney Disease: <60 mL/min/1.73sq m Kidney failure: <15 mL/min/1.73sq m eGFR calculated using average adult body mass. Additional eGFR calculator available at: http://www.SynapDx/multiple_crcl_2012.htm GFR/1.73 sq M predicted among non-blacks MDRD (S/P/Bld) [Vol rate/Area]NOT REPORTEDPrem[facility], HIGlucose [Mass/Vol]149 mg/cJNtom97 - 99 mg/dLPremier Health, HIInterpretation and review of laboratory resultsAbnoNewark Hospital, HIPotassium [Moles/Vol]3.4 mmol/LLow3.7 - 5.3 mmol/[facility], KYComment on above:ADDED ONSodium [Moles/Vol]146 mmol/NQbog988 - 144 mmol/L [facility], HIUrea nitrogen [Mass/Vol]12 mg/dL6 - 20 mg/dLPremier Health, HIBeta-Hydroxybutyrateon 70-89-6786Ujpe-Hydroxybutyrate0.51 mmol/LHigh0.02 - 0.27 mmol/[facility], HIInterpretation and review of laboratory results AbnormalPrem[facility] Health, HICALCIUM, IONIC (POC)on 50-42-7289XSX Ionized Calcium 1.17 mmol/L1.15 - 1.33 mmol/LMOhio State Harding Hospital, KYCALCIUM, IONIZEDon 07-18-2019 Calcium [Mass/Vol]1.11 mmol/LLow1.13 - 1.33 mmol/[facility], [place] Interpretation and review of laboratory resultsAbnoNewark Hospital, [place] CHLORIDE (POC)on 19-85-2518Moqkzizj [Moles/Vol]95 mmol/LLow98 - 107 mmol/[facility], KYCreatinine W/GFR Point of Careon 18-99-2086Vzktjwunsn [Mass/Vol] mg/dLLow0.51 - 1.19 mg/dLPremier Health, KYGFR Non- AmericanCANNOT BE CALCULATED>60 mL/minPremier Health, KYGFR/1.73 sq M predicted among non-blacks MDRD (S/P/Bld) [Vol rate/Area][facility], HIComment on above:Average GFR for 50-59 years old: 93 mL/min/1.73sq m Chronic Kidney Disease: <60 mL/min/1.73sq m Kidney failure: <15 mL/min/1.73sq m eGFR calculated using average adult body mass. Additional eGFR calculator available at: http://www.SynapDx/VDP_crcl_2012.htm GFR/1.73 sq M predicted among non-blacks MDRD (S/P/Bld) [Vol rate/Area]CANNOT BE CALCULATED>60 mL/minPremier Health, KYFERRITINon 85-00-0929Xsozbrib [Mass/Vol] 28 ug/L13 - 150 ug/LMOhio State Harding Hospital, KYHemoglobin and hematocrit, bloodon 02-96-4934Gvcjbitszc (Bld) [Volume fraction]50 %High36 - 46 %[facility], HIHemoglobin (Bld) [Mass/Vol]16.9 g/rVTrnn54 - 16 g/dLPremier Health, [place] LACTATE DEHYDROGENASEon 21-96-8156Hltnbngjtgduxn and review of laboratory resultsAbnormalPremier Health, VOJC847 U/LTfzz300 - 214 U/LMOhio State Harding Hospital, KYLactic Acid, POCon 86-59-0968BEP Lactic Acid0.39 mmol/LLow0.56 - 1.39 mmol/L [facility], HILegionella antigen, urineon 40-92-7274Bwrndoukqn Pneumophilia Ag, UrineNegativePremier Health, KYComment on above:L. pneumophila serogroup 1 antigen not detected. A negative result does not exclude infection with Leginella pnemophila serogroup 1 nor does it rule out other microbial-caused respiratory infections of disease caused by other serogroups of Legionella pneumophila. MAGNESIUMon 12-95-4060Obevnkojv [Mass/Vol]1.9 mg/dL1.6 - 2.6 mg/dLMercy Health- [place], KYMRSA DNA Probe, Nasalon 76-09-6057QSOH, DNA, NasalNEGATIVE: MRSA DNA not detected by nucleic acid amplification.NEGATIVE: MRSA DNA not detected by nucleic acid amplificatiMercy Health- [place], KYComment on above: Results should be used as an adjunct to nosocomial control efforts to identify patients needing enhanced precautions. The test is not intended to identify patients with staphylococcal infections. Results should not be used to guide or monitor treatment for MRSA infections. Specimen Description.NASAL SWABMercy Health- [place], KYMicroscopic Urinalysison 86-41-7423Gwupvjmsv, UANOT REPORTEDNoneMercy Health- [place], KYBacteria, UANOT REPORTEDNoneMercy Health- [place], KYCasts UA0 TO 2[facility]- [place], KYCasts UA HYALINEMercy Health- [place], KYCrystals, UANOT REPORTEDNone /HPFMercy Health- [place], [place] Epithelial Cells UA2 TO 5[facility]- [place], KYInterpretation and review of laboratory resultsAbnormalMercy Health- [place], KYMucus, UA1+AbnormalNoneMer[facility] Health- [place], KYOther Observations UANOT REPORTEDNOT REQ.[facility]- [place], KYRBC (U) [#/Vol]2 TO 5[facility]- [place], KYRenal Epithelial, UANOT REPORTED0 /HPFMercy Health- [place], KYTrichomonas, UANOT REPORTEDNoneMercy Health- [place], KYWBC, UA5 TO 10 [facility]- [place], KYYeast, UANOT REPORTEDNoneMercy Health- [place], KY-[facility]- [place], KYMixed Venous Gas, POCon 92-63-1972Wulya TestNOT REPORTEDMercy Health- [place], KYaPTT Coag (Bld) [Time]NOT REPORTEDMercy Health- [place], [id number] REPORTEDMer[facility] Health- [place], KYHCO3, Mixed38.6 mmol/LHigh23 - 29 mmol/LMer[facility]- [place], KYMode NOT REPORTEDMer[facility] Health- [place], KYNegative Base Excess, MixedNOT REPORTEDMercy Health- [place], KYO2 Device/Flow/%NOT REPORTEDMercy Health- [place], KYOxygen saturation in Blood82 %High60 - 80 %[facility]- [place], KYPCO2, Pmloe98Nelthrsung highDiley Ridge Medical Center Health- [place], KYPH MIXED7.302LowMerQuincy Valley Medical Center- [place], KYPO2, Mixed53.5HighKettering Health Miamisburg- [place], KYPOC pCO2 TempNOT REPORTEDmm HgKettering Health Miamisburg- [place], KYPOC pH TempNOT REPORTEDKettering Health [facility]- [place], KYPOC pO2 TempNOT REPORTEDmm HgKettering Health [facility]- [place], [place] Positive Base Excess, Mjzqu8VwqrAaavi Health- [place], KYSample SiteRight Radial ArteryKettering Health Miamisburg- [place], KYtCO2, Mixed41 mmol/LHigh24 - 30 mmol/LMMercy Health [address]. [facility]- [place], KYNotification Panel, POCon 02-19-4756LcbjtrZmzinovthfsnapvBeqke Health- [place], HIDate/Time07/18/201902:24:00[facility], KYNOTIFYdAvita Health System [facility]- [place], [place] READ BACKYesMMercy Health St. [facility]- [place], KYOtheron 79-81-2817Pmiorgrxzoszdw and review of laboratory resultsAbnoNewark Hospital, HIInterpretation and review of laboratory resultsAbnoNewark Hospital, HIInterpretation and review of laboratory resultsAbnoNewark Hospital, [facility] Glucose Fingerstickon 62-14-2464Dfqxzrb [Mass/Vol]164 mg/tCBebn52 - 105 mg/dLPremier Health, [place] Interpretation and review of laboratory resultsAbnoNewark Hospital, [place] Glucose [Mass/Vol]113 mg/uOGwfn08 - 105 mg/dLPremier Health, HIInterpretation and review of laboratory resultsAbnoNewark Hospital, HIGlucose [Mass/Vol] 135 mg/fARspp63 - 105 mg/dLPremier Health, HIInterpretation and review of laboratory resultsAbBarnesville Hospital, HIGlucose [Mass/Vol]124 mg/bNCpxk63 - 105 mg/dLPremier Health, HIInterpretation and review of laboratory results AbnormalPremier Health, HIPOCT Glucoseon 98-57-2962Pkqxzjc [Mass/Vol]143 mg/dL High74 - 100 mg/dLMercy Health- [place], KYGlucose [Mass/Vol]160 mg/dPFngm61 - 100 mg/dLMercy Health- [place], KYGlucose [Mass/Vol]135 mg/vZJrcf02 - 100 mg/dLMercy Health- [place], KYPOTASSIUM (POC)on 01-40-3768Vnednshah [Moles/Vol]3.4 mmol/LLow3.5 - 4.5 mmol/LMercy Health- [place], KYSODIUM (POC)on 02-26-1339Gjurph [Moles/Vol]144 mmol/L138 - 146 mmol/LMercy Health- [place], KYStrep Pneumoniae Antigenon 07-18-2019 Source.CLEAN CATCH URINEMercy Health- [place], KYStrep pneumo AgNegativeMercy Health- [place], KYComment on above:Strep pneumoniae antigen not detectedTroponinon 20-80-1711Cvujsgkx I.cardiac [Mass/Vol]NOT REPORTEDMer Health- [place], KYTroponin T.cardiac [Mass/Vol]NOT REPORTED<0.03 ng/mLMercy Health- [place], KYTroponin, High Egvzrqykgnp27 ng/L0 - 14 ng/LMercy Health- [place], KYComment on above: High Sensitivity Troponin values cannot be compared with other Troponin methodologies. Patients with high levels of Biotin oral intake (i.e >5mg/day) may have falsely decreased Troponin levels. Samples collected within 8 hours of biotin intake may require additional information for diagnosis. URINALYSISon 13-21-7300Pqqmvchzu UrineNegativeAbnormalNEGATIVEMercy Health- [place], KYColor, UADARK YELLOWAbnormalYELLOWMercy Health- [place], KYGlucose, UrNegative NEGATIVEMercy Health- [place], KYInterpretation and review of laboratory results AbnormalMercy Health- [place], KYKetones Ql (U)NegativeNEGATIVEMercy Health- [place], [place] Leukocyte esterase Test strip Ql (U)SMALLAbnormalNEGATIVEMercy Health- [place], [place] Nitrite, UrineNegativeNEGATIVEMercy Health- [place], KYpH, UA5.0[facility]- [place], [place] Protein (U) [Mass/Vol]2+AbnormalNEGATIVEMercy Health- [place], KYSpecific [place], UA 1.041HighMercy Health- [place], KYTurbidity UACLOUDYAbnormalCLEARPremier Health, [place] Urinalysis CommentsNOT REPORTEDPrem[facility] Health, CARLOSUrine HgbSMALLAbnormal NEGATIVEPremier Health, HIUrobilinogen, UrineNormalNormalPremier Health, CARLOS XR ABDOMEN FOR NG/OG/NE TUBE PLACEMENTon 92-27-4450Rej orogastric tube is in the distal stomach.[facility] HealthCARLOSEXAMINATION: ONE SUPINE XRAY VIEW(S) OF THE ABDOMEN 07/18/2019 10:28 am COMPARISON: None. HISTORY: ORDERING SYSTEM PROVIDED HISTORY: OG tube placement TECHNOLOGIST PROVIDED HISTORY: OG tube placement P ortable?->Yes Evaluate orogastric tube placement. Initial examination. FINDINGS: The orogastric tube proximal side port is in the distal gastric body. The distal tip is in the region of the gastric pylorus. There is no evidence of bowel obstruction. Cholecystectomy clips are present.Prem[facility] HealthAudelia Mhpn Incoming Radiant Results From [employer] - 07/18/2019 10:46 AM EDT EXAMINATION: ONE SUPINE XRAY VIEW(S) OF THE ABDOMEN 07/18/2019 10:28 am COMPARISON: None. HISTORY: ORDERING SYSTEM PROVIDED HISTORY: OG tube placement TECHNOLOGIST PROVIDED HISTORY: OG tube placement Portable?->Yes Evaluate orogastric tube placement. Initial examination. FINDINGS: The orogastric tube proximal side port is in the distal gastric body. The distal tip is in the region of the gastric pylorus. There is no evidence of bowel obstruction. Cholecystectomy clips are present. IMPRESSION: The orogastric tube is in the distal stomach. Premier HealthCARLOSXR CHEST PORTABLEon 00-95-7854An obvious pneumothorax after central line placementPremier Health, Noellei, Mhpn Incoming Radiant Results From [employer]le[employer] - 07/18/2019 7:49 AM EDT EXAMINATION: ONE XRAY VIEW OF THE CHEST 07/18/2019 7:40 am COMPARISON: None. HISTORY: ORDERING SYSTEM PROVIDED HISTORY: line placement TECHNOLOGIST PROVIDED HISTORY: line placement Reason for Exam: sup FINDINGS: Right-sided central line is seen. Tip projects in region of distal SVC. No obvious pneumothorax Atherosclerotic change is seen in the aorta. There is prominence of the on the right and left secondary to pulmonary artery enlargement. Bandlike opacity is seen in the left, similar to prior. IMPRESSION: No obvious pneumothorax after central line placement [facility]- [place], KYEXAMINATION: ONE XRAY VIEW OF THE CHEST 07/18/2019 7:40 am COMPARISON: None. HISTORY: ORDERING SYSTEM PROVIDED HISTORY: line placement TECHNOLOGIST PROVIDED HISTORY: line placement Reason for Exam: sup FINDINGS: Right-sided central line is seen. Tip projects in region of distal SVC. No obvious pneumothorax Atherosclerotic change is seen in the aorta. There is prominence of the on the right and left secondary to pulmonary artery enlargement. Bandlike opacity is seen in the left, similar to prior.[facility]- [place], KYAmmoniaon 56-47-1388Ljvilkc (P) [Mass/Vol]29 umol/L11 - 51 umol/L [facility]- [place], KYBlood Gas, Arterialon 44-13-1643Xuvwv TestPASSMercy Health- [place], KYaPTT Coag (Bld) [Time]37 sMercy Health- [place], KYCarboxyhemoglobinNOT REPORTED0 - 5 %[facility]- [place], LMRWC8SLZ REPORTEDMercy Health- [place], KYHCO3, Robyyaub59.5 mmol/LHigh22 - 26 mmol/LMer[facility]- [place], KYInterpretation and review of laboratory resultsAbnormalMercy Health- [place], KYMethemoglobinNOT REPORTED0 - 1.9 %[facility]- [place], KYModeNOT REPORTEDMercy Health- [place], [place] Negative Base Excess, ArtNOT REPORTED0 - 2 mmol/LMer[facility]- [place], [place] NOTIFICATIONNOT REPORTEDMercy Health- [place], KYNOTIFICATION TIMENOT REPORTEDMercy Health- [place], KYO2 Device/Flow/%ROOM AIRMercy Health- [place], KYOxygen saturation in Blood64.5 %Low95 - 98 %[facility]- [place], KYOxyhemoglobinNOT IYDVWMEF14 - 98 % [facility]- [place], KYpCO2, Art, Temp AdjNOT REPORTEDMercy Health- [place], KYpCO2, Fxgudscu35.4Critically highMercy Health- [place], KYPeep/CpapNOT REPORTEDMer[facility] Health- [place], KYpH, Art, Temp AdjNOT REPORTEDMer[facility] Health- [place], KYpH, Arterial7.321 LowMercy Health- [place], KYpO2, Art, Temp AdjNOT REPORTEDK[facility]tering Health [facility]- [place], KYpO2, Dzeiwnmw87.1Critically lowDiley Ridge Medical Center Health- [place], KYPositive Base Excess, Art4.3 mmol/LHigh0 - 2 mmol/LMer[facility]- [place], KYPSVNOT REPORTEDKettering Health [facility]- [place], KYPt. PositionSEMI-FOWLERSKettering Health [facility]- [place], KYSample SiteRight Brachial ArteryKettering Health [facility]- [place], KYSet RateNOT REPORTEDKettering Health [facility]- [place], KYText for RespiratoryNOT REPORTEDKettering Health [facility]- [place], KYTotal HbNOT JKUQYQPE52 - 16 g/dlKettering Health Miamisburg- [place], [place] Total RateNOT REPORTEDKettering Health [facility]- [place], KYVTNOT REPORTEDKettering Health [facility]- [place], [place] Brain Natriuretic Peptideon 53-38-0757Rcqcmtjqgzd peptide B (Bld) [Mass/Vol]1007 pg/mLHigh<300K[facility]- [place], KYComment on above:Pro-BNP results cannot be compared to BNP results.Natriuretic peptide B (Bld) [Mass/Vol]Pro-BNP Reference Range:[facility], HIComchelsea hospital on above: Rule Out: <300 [place] Zone: Age <50 300-450 Age 50-75 300-900 Age >75 300-1800 Usually represents mild to moderate HF but other cardiopulmonary causes cannot be ruled out. Rule In: Age <50 >450 Age 50-75 >900 Age >75 >1800 CBC Auto Differentialon 27-60-7061Yoqjirwhc (Bld) [#/Vol]0.05 10*3/uLKettering Health Miamisburg- [place], KYBasophils/100 WBC (Bld)1 %0 - 2 %[facility]- [place], KYDifferential TypeNOT REPORTEDKettering Health [facility]- [place], KYEosinophils (Bld) [#/Vol]0.36 10*3/uLKettering Health Miamisburg- [place], KYEosinophils/100 WBC (Bld)4 %1 - 4 %[facility] [place], HIErythrocyte distribution width (RBC) [Ratio]15.7 %High11.8 - 14.4 %[facility], [place] Hematocrit (Bld) [Volume fraction]43.4 %36.3 - 47.1 %[facility], [place] Hemoglobin (Bld) [Mass/Vol]13.7 g/dL11.9 - 15.1 g/dLCincinnati, KYImmaakron children's hospital granulocytes (Bld) [#/Vol]0.03 10*3/uLPremier Health, HIImmature granulocytes (Bld) [#/Vol]0 %0[place], KYInterpretation and review of laboratory resultsAbnormalCinc[place], KYLymphocytes (Bld) [#/Vol]1.60 10*3/uLPremier Health, HILymphocytes/100 WBC (Bld)17 %Low24 - 43 %[facility] SystemH (RBC) [Entitic mass]27.6 pg25.2 - 33.5 pgCincinnati, KYMCHC (RBC) [Mass/Vol]31.6 g/dL28.4 - 34.8 g/dLCincinnati, KYMCV (RBC) [Entitic vol] 87.5 fL82.6 - 102.9 fLCincinnati, KYMonocytes (Bld) [#/Vol]0.70 10*3/uL [facility] HIMonocytes/100 WBC (Bld)7 %3 - 12 %[place], [place] Platelet mean volume (Bld) [Entitic vol]9.0 fL8.1 - 13.5 fLCincinnati, [place] Platelets (Bld) [#/Vol]NOT REPORTEDCincinnati, KYPlatelets (Bld) [#/Vol] 277 10*3/uLPremier Health, HIRBC (Bld) [#/Vol]4.96 10*6/uL3.95 - 5.11 m/uL [place], KYRBC morphology finding Nom (Bld)NOT REPORTEDCincinnati, KYSegmented neutrophils/100 WBC (Bld)71 %High36 - 65 %[place], [place] Segs Absolute6.82[facility], HIWBC (Bld) [#/Vol]0.0 10*3/uL0.0 per 100 WBC [place], KYWBC (Bld) [#/Vol]9.6 10*3/[facility], KYWBC MorphologyNOT REPORTEDPremier Health, KYCKon 84-19-3287Byfyo CK70 U/L26 - 192 U/[facility], KYCT Chest Pulmonary Embolism W Contraston 07-17-2019 EXAMINATION: CTA OF THE CHEST 07/17/2019 7:50 pm TECHNIQUE: CTA of the chest was performed after theadministration of intravenous contrast. Multiplanar reformatted images are provided for review. MIPimages are provided for review. Dose modulation, iterative reconstruction, and/or weight based adjustment of the mA/kV was utilized to reduce the radiation dose to as low as reasonably achievable. COMPARISON: April 21, 2019 CT chest and chest x-ray from today HISTORY: ORDERING SYSTEM PROVIDED HISTORY: Desats, possible pulm edema, but elevated D dimer. R/O PE TECHNOLOGIST PROVIDED HISTORY: Desats, possible pulm edema, but elevated D dimer. R/O PE FINDINGS: Pulmonary Arteries: Pulmonary arteries are adequately opacified for evaluation. No evidence of intraluminal filling defect to suggest pulmonary embolism. Main pulmonary artery is increased but stable in caliber. Mediastinum: Cardiomegalyand calcific coronary artery disease. Heart and great vessels unremarkable except for mild cardiomegaly. Borderline nonspecific mediastinal and hilar lymphadenopathy stable. Lungs/pleura: Mild edema.Subsegmental atelectasis left lower lobe. There are few scattered ill-defined interstitial infiltrates which appear improved. Upper Abdomen: Limited images of the upper abdomen are unremarkable. Soft Tissues/Bones: No acute bone or soft tissue abnormality.[facility], KYMild edema. Nonspecific peripheral infiltrates appear somewhat improved. Coronary artery disease. RECOMMENDATIONS: Imaging features can be seen with viral pneumonia, though are nonspecific and can occur with a variety of infectious and noninfectious processes. [facility]InLouis [facility], Bridgette Win Incoming Radiant Results From [employer]/[facility] - 07/17/2019 8:06 PM EDT EXAMINATION: CTA OF THE CHEST 07/17/2019 7:50 pm TECHNIQUE: CTA of the chest was performed after the administration of intravenous contrast. Multiplanar reformatted images are provided for review. MIP images are provided for review. Dose modulation, iterative reconstruction, and/or weight based adjustment of the mA/kV was utilized to reduce the radiation dose to as low as reasonably achievable. COMPARISON: April 21, 2019 CT chest and chest x-ray from today HISTORY: ORDERING SYSTEM PROVIDED HISTORY: Desats, possible pulm edema, but elevated D dimer. R/O PE TECHNOLOGIST PROVIDED HISTORY: Desats, possible pulm edema, but elevated D dimer. R/O PE FINDINGS: Pulmonary Arteries: Pulmonary arteries are adequately opacified for evaluation. No evidence of intraluminal filling defect to suggest pulmonary embolism. Main pulmonary artery is increased but stable in caliber. Mediastinum: Cardiomegaly and calcific coronary artery disease. Heart and great vessels unremarkable except for mild cardiomegaly. Borderline nonspecific mediastinal and hilar lymphadenopathy stable. Lungs/pleura: Mild edema. Subsegmental atelectasis left lower lobe. There are few scattered ill-defined interstitial infiltrates which appear improved. Upper Abdomen: Limited images of the upper abdomen are unremarkable. Soft Tissues/Bones: No acute bone or soft tissue abnormality. IMPRESSION: Mild edema. Nonspecific peripheral infiltrates appear somewhat improved. Coronary artery disease. RECOMMENDATIONS: Imaging features can be seen with viral pneumonia, though are nonspecific and can occur with a variety of infectious and noninfectious processes. PneInd [facility], KYCT Head WO Contraston [id number]: CT OF THE HEAD WITHOUT CONTRAST 07/17/2019 6:02 pm TECHNIQUE: CT of the head was performed without the administration of intravenous contrast. Dose modulation, iterative reconstruction, and/or weight based adjustment of the mA/kV was utilized to reduce the radiation dose to as low as reasonably achievable. COMPARISON: Head CT 04/12/2019 HISTORY: ORDERING SYSTEM PROVIDED HISTORY: fall with ams TECHNOLOGIST PROVIDED HISTORY: fall with ams FINDINGS: Patient motion in some areas, partially limiting evaluation of those areas. BRAIN/VENTRICLES: No masses nor acute intracranial hemorrhage. Intact stephenson/white matter differentiation without findings of acute ischemia. No mass effect nor midline shift. Patent basilar cisterns and foramen magnum. No hydrocephalus. Mild diffuse atrophy. Mil d subcortical, deep, periventricular white matter hypodensities likely due to chronic small vessel ischemia. ORBITS: Visualized portions appear normal without acute abnormality. SINUSES: Visualized portions of the paranasal sinuses appear normally pneumatized and aerated. Partial opacification of the bilateral mastoid air cells likely due to effusions. SOFT TISSUES/SKULL: No obvious acute soft tissue abnormality. Moderate to severe atherosclerotic calcifications. No acute fracture.[facility] HealthAmy acute findings in the head.[facility], [place] Win Incoming Radiant Results From [employer]acs - 07/17/2019 6:18 PM EDT EXAMINATION: CT OF THE HEAD WITHOUT CONTRAST 07/17/2019 6:02 pm TECHNIQUE: CT of the head was performed without the administration of intravenous contrast. Dose modulation, iterative reconstruction, and/or weight based adjustment of the mA/kV was utilized to reduce the radiation dose to as low as reasonably achievable. COMPARISON: Head CT 04/12/2019 HISTORY: ORDERING SYSTEM PROVIDED HISTORY: fall with ams TECHNOLOGIST PROVIDED HISTORY: fall with ams FINDINGS: Patient motion in some areas, partially limiting evaluation of those areas. BRAIN/VENTRICLES: No masses nor acute intracranial hemorrhage. Intact stephenson/white matter differentiation without findings of acute ischemia. No mass effect nor midline shift. Patent basilar cisterns and foramen magnum. No hydrocephalus. Mild diffuse atrophy. Mild subcortical, deep, periventricular white matter hypodensities likely due to chronic small vessel ischemia. ORBITS: Visualized portions appear normal without acute abnormality. SINUSES: Visualized portions of the paranasal sinuses appear normally pneumatized and aerated. Partial opacification of the bilateral mastoid air cells likely due to effusions. SOFT TISSUES/SKULL: No obvious acute soft tissue abnormality. Moderate to severe atherosclerotic calcifications. No acute fracture. IMPRESSION: No acute findings in the head. [facility], KYComprehensive Metabolic Panel w/ Reflex to MGon 07-17-2019 Albumin [Mass/Vol]3.7 g/dL3.5 - 5.2 g/dLPremier Health, KYAlbumin/Globulin [Mass ratio]1.2 {ratio}[facility], KYALP [Catalytic activity/Vol]93 U/L35 - 104 U/LMOhio State Harding Hospital, KYALT [Catalytic activity/Vol]11 U/L5 - 33 U/LMOhio State Harding Hospital, KYAnion gap [Moles/Vol]12 mmol/L9 - 17 mmol/LMOhio State Harding Hospital, KYAST [Catalytic activity/Vol]12 U/L<32[facility], KYBilirubin Ql (U)0.26 mg/dL Low0.3 - 1.2 mg/dLMercy Health- [place], KYBun/Cre Qqeee26IjkoSmitd Health- [place], [place] Calcium [Mass/Vol]9.1 mg/dL8.6 - 10.4 mg/dLK[facility]tering Health [facility]- [place], KYChloride [Moles/Vol]99 mmol/L98 - 107 mmol/LMadena regional medical center Health- [place], KYCO2 [Moles/Vol]29 mmol/L 20 - 31 mmol/LMmorrow county hospitaly [facility]- [place], KYCreatinine [Mass/Vol]0.57 mg/dL0.5 - 0.9 mg/dL [facility]- [place], KYGFR >60>60 mL/minKettering Health [facility]- [place], KYGFR Non->60>60 mL/minK[facility]tering Health [facility]- [place], KYGlucose [Mass/Vol]126 mg/dL High70 - 99 mg/dLKettering Health [facility]- [place], KYPotassium [Moles/Vol]4.2 mmol/L3.7 - 5.3 mmol/LMmorrow county hospitaly [facility]- [place], KYProtein [Mass/Vol]6.7 g/dL6.4 - 8.3 g/dLK[facility]- [place], KYSodium [Moles/Vol]140 mmol/L135 - 144 mmol/LMMercy [address] [facility]- [place], KYUrea nitrogen [Mass/Vol]13 mg/dL6 - 20 mg/dLKettering Health [facility]- [place], KYD-dimer, quantitative on [id number]-Dimer, Quant0.97[facility], KYComment on above: Elevated levels of D dimer can be seen in any state of coagulation activation including DVT, PE, arterial thrombosis, DIC, inflamatory disease, trauma, malignancy, sepsis, infection, hematoma, liver disease, post surgical state, , atherosclerosis, old age. When combined with a low clinical probability, a D dimer value of <0.50 mg/L is considered negative for DVT and PE (negative predictive value of 98%). Interpretation and review of laboratory resultsAbnormalDiley Ridge Medical Center Health- [place], [place] Ethanolon [id number] [Mass/Vol]mg/dL<10 mg/dLK[facility]tering Health [facility]- [place], KYEthanol percent<0.010<0.010 %[facility]- [place], KYMetabolic Panelon [id number]/1.73 sq M predicted among non-blacks MDRD (S/P/Bld) [Vol rate/Area][facility], [place] Comment on above:Stage 1: Some kidney damage normal GFR Stage 2: Mild kidney damage GFR 60-89 Stage 3: Moderate kidney damage GFR 30-59 Stage 4: Severe kidney damage GFR 15-29 Stage 5: Severe kidney damage GFR <15 ESRD - chronic treatment by dialysis or transplant Average GFR for 50-59 years old: 93 mL/min/1.73sq m Chronic Kidney Disease: <60 mL/min/1.73sq m Kidney failure: <15 mL/min/1.73sq m eGFR calculated using average adult body mass. Additional eGFR calculator available at: http://www.SynapDx/multiple_crcl_2012.htm Microscopic Urinalysison [id number], UANOT REPORTEDNoneMey Health- [place], KYBacteria, UANOT REPORTEDNoneMey Health- [place], KYCasts UANOT REPORTED/LPF [facility]- [place], KYCrystals, UANOT REPORTEDNone /HPFMercy Health- [place], [place] Epithelial Cells UANoneMemount carmel health system Health- [place], KYMucus, UANOT REPORTEDNoneMey Health- [place], KYOther Observations UANOT REPORTEDNOT REQ.[facility]- [place], KYRBC (U) [#/Vol]0 TO 2[facility]- [place], KYRenal Epithelial, UANOT REPORTED0 /HPFMercy Health- [place], KYTrichomonas, UANOT REPORTEDNoneMercy Health- [place], KYWBC, UA0 TO 2 [facility]- [place], KYYeast, UANOT REPORTEDNoneMemount carmel health [facility]- [place], [place]-[facility]- [place], KYOtheron [id number] and review of laboratory resultsAbnormal [facility]- [place], KYProtime-INRon [id number] Coag (PPP) [Relative time]1.0 {INR}[facility]- [place], HIPT Coag (PPP) [Time]10.[address] [facility]- [place], HITroponin on [id number] I.cardiac [Mass/Vol]NOT REPORTEDPremier Health, [place] Troponin T.cardiac [Mass/Vol]NOT REPORTED<0.03 ng/mLMercy Health- [place], [place] Troponin, High Sensitivity7 ng/L0 - 14 ng/LMercy Health- [place], KYComment on above: High Sensitivity Troponin values cannot be compared with other Troponin methodologies. Patients with high levels of Biotin oral intake (i.e >5mg/day) may have falsely decreased Troponin levels. Samples collected within 8 hours of biotin intake may require additional information for diagnosis. Urinalysis Reflex to Cultureon [id number] UrineNegativeNEGATIVEMercy Health- [place], KYColor, UAYELLOWYELLOWMercy Health- [place], KYGlucose, UrNegative NEGATIVEMercy Health- [place], KYInterpretation and review of laboratory results AbnormalMercy Health- [place], KYKetones Ql (U)NegativeNEGATIVEMercy Health- [place], [place] Leukocyte esterase Test strip Ql (U)NegativeNEGATIVEMercy Health- [place], KYNitrite, UrinePositiveAbnormalNEGATIVEMercy Health- [place], KYpH, UA6.0[facility]- [place], [place] Protein (U) [Mass/Vol]NegativeNEGATIVEMercy Health- [place], KYSpecific [place], UA 1.010[facility]- [place], KYTurbidity UACLEARCLEARMercy Health- [place], KYUrinalysis CommentsNOT REPORTEDMercy Health- [place], KYUrine HgbNegativeNEGATIVEMercy Health- [place], KYUrobilinogen, UrineNormalNormalMercy Health- [place], KYUrine Drug Screenon [id number] Screen, UrNegativeNEGATIVEMercy Health- [place], KYBarbiturate Screen, UrNegativeNEGATIVEMercy Health- [place], KYBenzodiazepine Screen, Urine PositiveAbnormalNEGATIVEMercy Health- [place], KYBuprenorphine UrineNegativeNEGATIVE [facility]- [place], KYCannabinoid Scrn, UrNegativeNEGATIVEMercy Health- [place], [place] Cocaine Metabolite, UrineNegativeNEGATIVEMercy Health- [place], KYInterpretation and review of laboratory resultsAbnormalMercy Health- [place], KYMDMA, UrineNOT REPORTED NEGATIVEMercy Health- [place], KYMethadone Screen, UrineNegativeNEGATIVEMercy Health- [place], KYMethamphetamine, UrineNegativeNEGATIVEMercy Health- [place], KYOpiates, Urine NegativeNEGATIVEMercy Health- [place], KYOxycodone Screen, UrNegativeNEGATIVEMedina Hospitalcy Health- [place], KYPhencyclidine, UrineNegativeNEGATIVEDiley Ridge Medical Center [facility]- [place], [place] Propoxyphene, UrineNegativeNEGATIVEMedina Hospitalcy Health- [place], KYTest InformationNOT REPORTEDKettering Health [facility]- [place], KYTricyclic Antidepressants, UrineNegativeNEGATIVE [facility]- [place], KYComment on above:Drug screen results are to be used for medical purposes only. All positive results are unconfirmed. Testing for employment or legal uses should be sent to a reference laboratory for confirmation. XR CHEST PORTABLEon [id number], Mhpn Incoming Radiant Results From [employer]/Pacs - 07/17/2019 6:46 PM EDT EXAMINATION: ONE X-RAY VIEW OF THE CHEST 07/17/2019 6:10 pm COMPARISON: April 21, 2019 HISTORY: ORDERING SYSTEM PROVIDED HISTORY: Fall TECHNOLOGIST PROVIDED HISTORY: Fall FINDINGS: Rotated positioning. No focal consolidation. Small linear left lower lobe opacity. Cardiomegaly. Mild pulmonary edema. IMPRESSION: Mild pulmonary edema. Small linear left lower lobe opacity is suspected to be atelectasis or scarring. [facility], KYMild pulmonary edema. Small linear left lower lobe opacity is suspected to be atelectasis or scarring.[facility]- [place], KYEXAMINATION: ONE X-RAY VIEW OF THE CHEST 07/17/2019 6:10 pm COMPARISON: April 21, 2019 HISTORY: ORDERING SYSTEM PROVIDED HISTORY: Fall TECHNOLOGIST PROVIDED HISTORY: Fall FINDINGS: Rotated positioning. No focal consolidation. Small linear left lower lobe opacity. Cardiomegaly. Mild pulmonary edema.[facility], KYCBC Auto Differentialon [id number] (Bld) [#/Vol]0.08 10*3/uLDiley Ridge Medical Center Health- [place], [place] Basophils/100 WBC (Bld)1 %0 - 2 %[facility]- [place], KYDifferential TypeNOT REPORTEDKettering Health [facility]- [place], KYEosinophils (Bld) [#/Vol]0.56 10*3/uLHighMer Health- [place], KYEosinophils/100 WBC (Bld)4 %1 - 4 %[facility]- [place], KYErythrocyte distribution width (RBC) [Ratio]14.9 %High11.8 - 14.4 %[place], [place] Hematocrit (Bld) [Volume fraction]48.3 %High36.3 - 47.1 %[place], [place] Hemoglobin (Bld) [Mass/Vol]14.9 g/dL11.9 - 15.1 g/dLCincinnati, KYImmature granulocytes (Bld) [#/Vol]0.04 10*3/uLPremier HealthCARLOSImmature granulocytes (Bld) [#/Vol]0 %0[place], KYInterpretation and review of laboratory resultsAbnormalPremier Health, HILymphocytes (Bld) [#/Vol]2.18 10*3/uLPremier Health HILymphocytes/100 WBC (Bld)16 %Low24 - 43 %[place], KYMCH (RBC) [Entitic mass]27.8 pg25.2 - 33.5 pgC[place], KYMCHC (RBC) [Mass/Vol]30.8 g/dL28.4 - 34.8 g/dLCincinnati, KYMCV (RBC) [Entitic vol] 90.1 fL82.6 - 102.9 fLPremier Health HIMonocytes (Bld) [#/Vol]0.78 10*3/uL [facility] HealthCARLOSMonocytes/100 WBC (Bld)6 %3 - 12 %[place], [place] Platelet mean volume (Bld) [Entitic vol]9.3 fL8.1 - 13.5 fLCinc[place], [place] Platelets (Bld) [#/Vol]281 10*3/uLPremier Health HIPlatelets (Bld) [#/Vol]NOT REPORTEDC[place], KYRBC (Bld) [#/Vol]5.36 10*6/uLHigh3.95 - 5.11 m/uL [place], KYRBC morphology finding Nom (Bld)NOT REPORTEDC[place], KYSegmented neutrophils/100 WBC (Bld)73 %High36 - 65 %[place], [place] Segs Wjywfcxn49.02HighMercy Health- [place], KYWBC (Bld) [#/Vol]13.7 10*3/uLHighMerQuincy Valley Medical Center- [place], KYWBC (Bld) [#/Vol]0.0 10*3/uL0.0 per 100 WBCKettering Health [facility]- [place], [place] WBC MorphologyNOT REPORTEDKettering Health [facility]- [place], KYComprehensive Metabolic Panelon [id number] [Mass/Vol]4.3 g/dL3.5 - 5.2 g/dLK[facility]tering Health [facility]- [place], [place] Albumin/Globulin [Mass ratio]1.4 {ratio}[facility]- [place], KYALP [Catalytic activity/Vol]84 U/L35 - 104 U/LMMercy Health [address] [facility]- [place], KYALT [Catalytic activity/Vol]9 U/L5 - 33 U/LMadena regional medical center Health- [place], KYAnion gap [Moles/Vol]11 mmol/L9 - 17 mmol/L [facility]- [place], KYAST [Catalytic activity/Vol]13 U/L<32[facility]- [place], [place] Bilirubin Ql (U)0.22 mg/dLLow0.3 - 1.2 mg/dLK[facility]tering Health [facility]- [place], KYBun/Cre Ratio27 HighKettering Health [facility]- [place], KYCalcium [Mass/Vol]9.3 mg/dL8.6 - 10.4 mg/dLK[facility]tering Health [facility]- [place], KYChloride [Moles/Vol]95 mmol/LLow98 - 107 mmol/LMMercy [address] [facility]- [place], KYCO2 [Moles/Vol]29 mmol/L20 - 31 mmol/LMMercy Health [address] [facility]- [place], KYCreatinine [Mass/Vol]0.55 mg/dL0.5 - 0.9 mg/dLK[facility]- [place], KYGFR >60>60 mL/minK[facility]- [place], KYGFR Non->60>60 mL/minK[facility]- [place], KYGlucose [Mass/Vol]82 mg/dL70 - 99 mg/dLK[facility]tering Health [facility]- [place], KYInterpretation and review of laboratory resultsAbnormalKettering Health [facility]- [place], KYPotassium [Moles/Vol]4.2 mmol/L3.7 - 5.3 mmol/LMadena regional medical center Health- [place], KYProtein [Mass/Vol]7.4 g/dL6.4 - 8.3 g/dLCinc[place], KYSodium [Moles/Vol]135 mmol/L135 - 144 mmol/LMBuckeye, [place] Urea nitrogen [Mass/Vol]15 mg/dL6 - 20 mg/dLCinc[place], KYMetabolic Panel on [id number]/1.73 sq M predicted among non-blacks MDRD (S/P/Bld) [Vol rate/Area][place], KYComment on above:Stage 1: Some kidney damage normal GFR Stage 2: Mild kidney damage GFR 60-89 Stage 3: Moderate kidney damage GFR 30-59 Stage 4: Severe kidney damage GFR 15-29 Stage 5: Severe kidney damage GFR <15 ESRD - chronic treatment by dialysis or transplant Average GFR for 50-59 years old: 93 mL/min/1.73sq m Chronic Kidney Disease: <60 mL/min/1.73sq m Kidney failure: <15 mL/min/1.73sq m eGFR calculated using average adult body mass. Additional eGFR calculator available at: http://www.SynapDx/multiple_crcl_2012.htm Troponinon [id number] I.cardiac [Mass/Vol]NOT REPORTEDC[place], KYTrvanderbilt children's hospitalnin T.cardiac [Mass/Vol]NOT REPORTED<0.03 ng/mLCinc[place], [place] Troponin, High Sensitivity7 ng/L0 - 14 ng/LMBuckeye, KYComchelsea hospital on above: High Sensitivity Troponin values cannot be compared with other Troponin methodologies. Patients with high levels of Biotin oral intake (i.e >5mg/day) may have falsely decreased Troponin levels. Samples collected within 8 hours of biotin intake may require additional information for diagnosis. XR HAND LEFT (MIN 3 VIEWS)on [id number] acute fracture or dislocation in the left hand. Chronic deformities and moderate to severe degenerative changes at the 1st carpometacarpal joint. Mild soft tissue swellingC[place], [place] EXAMINATION: THREE XRAY VIEWS OF THE LEFT HAND 05/27/2019 9:36 am COMPARISON: X- ray left wrist April 12, 2019 HISTORY: ORDERING SYSTEM PROVIDED HISTORY: pain TECHNOLOGIST PROVIDED HISTORY: pain FINDINGS: There is no evidence of acute fracture or dislocation of the left hand. There are chronic deformities at the 1st carpometacarpal joint. There are moderate to severe degenerative changes at the 1st carpometacarpal joint. The remainder of joint spaces are intact. There is mild soft tissue swelling. No evidence of radiopaque foreign body.[facility] HealthAudelia Mhpn Incoming Radiant Results From [employer] - 05/27/2019 9:51 AM EST EXAMINATION: THREE XRAY VIEWS OF THE LEFT HAND 05/27/2019 9:36 am COMPARISON: X-ray left wrist April 12, 2019 HISTORY: ORDERING SYSTEM PROVIDED HISTORY: pain TECHNOLOGIST PROVIDED HISTORY: pain FINDINGS: There is no evidence of acute fracture or dislocation of the left hand. There are chronic deformities at the 1st carpometacarpal joint. There are moderate to severe degenerative changes at the 1st carpometacarpal joint. The remainder of joint spaces are intact. There is mild soft tissue swelling. No evidence of radiopaque foreign body. IMPRESSION: No acute fracture or dislocation in the left hand. Chronic deformities and moderate to severe degenerative changes at the 1st carpometacarpal joint. Mild soft tissue swelling [facility] Eso TechnologiesALVIN J. SITEMAN [facility], CARLOSDanbury Hospital Metabolic PanelOrdered By: Ziggy Smith on [id number] gap [Moles/Vol]8 mmol/LLow9 - 17 mmol/LMercy [employer] Work Phone: bun/Cre Zkiil79EkhzQjspk Health Work Phone: calcium [Mass/Vol]9.1 mg/dL8.6 - 10.4 mg/dLMedina HospitalJ.G. ink Work Phone: chloride [Moles/Vol]100 mmol/L98 - 107 mmol/LMercy [employer] Work Phone: TO2 [Moles/Vol]32 mmol/LHigh20 - 31 mmol/LMercy [employer] Work Phone: creatinine [Mass/Vol]0.48 mg/dLLow0.5 - 0.9 mg/dLMedina HospitalFlypost.co Phone: GFR >60>60 mL/minMedina HospitalJ.G. ink Work Phone: GFR CommentMedina HospitalFlypost.co Phone: comment on above:Average GFR for 50-59 years old: 93 mL/min/1.73sq m Chronic Kidney Disease: <60 mL/min/1.73sq m Kidney failure: <15 mL/min/1.73sq m eGFR calculated using average adult body mass. Additional eGFR calculator available at: http://www.SynapDx/multiple_crcl_2012.htm GFR Non->60>60 mL/minMedina HospitalFlypost.co Phone: GFR StagingMedina HospitalFlypost.co Phone: comment on above:Stage 1: Some kidney damage normal GFR Stage 2: Mild kidney damage GFR 60-89 Stage 3: Moderate kidney damage GFR 30-59 Stage 4: Severe kidney damage GFR 15-29 Stage 5: Severe kidney damage GFR <15 ESRD - chronic treatment by dialysis or transplant Glucose [Mass/Vol]111 mg/gKXsxi14 - 99 mg/dLMedina HospitalFlypost.co Phone: Interpretation and review of laboratory results AbnormalMedina HospitalFlypost.co Phone: potassium [Moles/Vol]4.1 mmol/L3.7 - 5.3 mmol/LMmorrow county hospitaly [employer] Phone: sodium [Moles/Vol]140 mmol/L135 - 144 mmol/LMercy [employer] Phone: Urea nitrogen [Mass/Vol]14 mg/dL6 - 20 mg/dLMedina HospitalFlypost.co Phone: cBC Auto DifferentialOrdered By: Ziggy Smith on [id number] Eos #<0.03Medina HospitalFlypost.co Phone: absolute Immature Granulocyte0.04Med[facility] HospitalFlypost.co Phone: absolute Lymph #1.73[facility] HospitalFlypost.co Phone: absolute [place] #0.92Med[facility] HospitalFlypost.co Phone: Basophils (Bld) [#/Vol]10*3/uLMedina HospitalFlypost.co Phone: Basophils/100 WBC (Bld)0 %0 - 2 %[employer] Phone: differential TypeNOT REPORTEDMedina HospitalFlypost.co Phone: eosinophils/100 WBC (Bld)0 %Low1 - 4 %[employer] Phone: erythrocyte distribution width (RBC) [Ratio]13.7 %11.8 - 14.4 %[employer] Phone: Hematocrit (Bld) [Volume fraction]47.1 %36.3 - 47.1 % [employer] Phone: Hemoglobin (Bld) [Mass/Vol]14.7 g/dL11.9 - 15.1 g/dL [employer] Phone: Immature granulocytes/100 WBC (Bld)0 %0Medina HospitalFlypost.co Phone: Interpretation and review of laboratory results AbnormalMedina HospitalFlypost.co Phone: lymphocytes/100 WBC (Bld)19 %Low24 - 43 %[employer] Phone: MCH (RBC) [Entitic mass]28.5 pg25.2 - 33.5 pgMedina HospitalFlypost.co Phone: MCHC (RBC) [Mass/Vol]31.2 g/dL28.4 - 34.8 g/dLMedina HospitalFlypost.co Phone: MCV (RBC) [Entitic vol]91.3 fL82.6 - 102.9 fLMedina HospitalFlypost.co Phone: Monocytes/100 WBC (Bld)10 %3 - 12 %[employer] Phone: NRBC Automated0.00.0 per 100 WBCMedina HospitalFlypost.co Phone: platelet EstimateNOT REPORTEDMedina HospitalJ.G. ink Work Phone: platelet mean volume (Bld) [Entitic vol]9.3 fL8.1 - 13.5 fLMedina HospitalFlypost.co Phone: [phone] (Bld) [#/Vol]238 10*3/uLMedina HospitalJ.G. ink Work Phone: [phone] (Bld) [#/Vol]5.16 10*6/uLHigh3.95 - 5.11 m/uLMedina HospitalJ.G. ink Work Phone: RBC morphology finding Nom (Bld)NOT REPORTEDMedina HospitalFlypost.co Phone: segmented neutrophils/100 WBC (Bld)71 %High36 - 65 % [facility] [employer] Phone: segs Absolute6.53Med[facility] HospitalFlypost.co Phone: WBC (Bld) [#/Vol]9.3 10*3/uLMedina HospitalFlypost.co Phone: WBC MorphologyNOT REPORTEDMedina HospitalJ.G. ink Work Phone: culture Blood #1Ordered By: Wesly Whitten on 04-26-2019 Special Hsvcpjts97RT, L ACMedina HospitalFlypost.co Phone: special RequestsRAC 20 MLMedina HospitalFlypost.co Phone: specimen Description.BLOODMedina HospitalFlypost.co Phone: Glucose, Whole BloodOrdered By: Gordo De Santiago on [id number] [Mass/Vol]149 mg/nATkth70 - 100 mg/dLMedina HospitalFlypost.co Phone: Interpretation and review of laboratory results AbnormalMedina HospitalFlypost.co Phone: Glucose [Mass/Vol]129 mg/oMAnty37 - 100 mg/dLMedina HospitalFlypost.co Phone: Interpretation and review of laboratory results AbnormalMedina HospitalFlypost.co Phone: laboratory - Microbiology and Antimicrobial susceptibilityOrdered By: Wesly Whitten on [id number] identified Cx Nom (Unsp spec)NO GROWTH 5 DAYSMedina HospitalJ.G. ink Work Phone: basic Metabolic PanelOrdered By: Ziggy Smith on [id number] gap [Moles/Vol]13 mmol/L9 - 17 mmol/LMercy [employer] Work Phone: bun/Cre Lwfdp01GiirWowzr Health Work Phone: calcium [Mass/Vol]9.0 mg/dL8.6 - 10.4 mg/dLMedina HospitalFlypost.co Phone: chloride [Moles/Vol]100 mmol/L98 - 107 mmol/LMercy [employer] Work Phone: cO2 [Moles/Vol]29 mmol/L20 - 31 mmol/LMmorrow county hospitalVsnap Work Phone: creatinine [Mass/Vol]0.42 mg/dLLow0.5 - 0.9 mg/dLMedina HospitalFlypost.co Phone: GFR >60>60 mL/minMedina HospitalFlypost.co Phone: GFR CommentMedina HospitalFlypost.co Phone: comment on above:Average GFR for 50-59 years old: 93 mL/min/1.73sq m Chronic Kidney Disease: <60 mL/min/1.73sq m Kidney failure: <15 mL/min/1.73sq m eGFR calculated using average adult body mass. Additional eGFR calculator available at: http://www.Oriense.[employer]/multiple_crcl_2012.htm GFR Non->60>60 mL/minMedina HospitalJ.G. ink Work Phone: GFR StagingMedina HospitalFlypost.co Phone: comment on above:Stage 1: Some kidney damage normal GFR Stage 2: Mild kidney damage GFR 60-89 Stage 3: Moderate kidney damage GFR 30-59 Stage 4: Severe kidney damage GFR 15-29 Stage 5: Severe kidney damage GFR <15 ESRD - chronic treatment by dialysis or transplant Glucose [Mass/Vol]145 mg/fPZidl98 - 99 mg/dLMedina HospitalFlypost.co Phone: Interpretation and review of laboratory results AbnormalMedina HospitalFlypost.co Phone: potassium [Moles/Vol]4.0 mmol/L3.7 - 5.3 mmol/LMercy [employer] Work Phone: sodium [Moles/Vol]142 mmol/L135 - 144 mmol/LMmorrow county hospitaly [employer] Work Phone: Urea nitrogen [Mass/Vol]12 mg/dL6 - 20 mg/dLMedina HospitalFlypost.co Phone: cBC Auto DifferentialOrdered By: Ziggy Smith on [id number] Eos #<0.03[facility]Flypost.co Phone: absolute Immature Granulocyte0.03[facility]Fly[facility].co Phone: absolute Lymph #1.55[facility]Fly[facility] Phone: absolute [place] #0.82[facility]Fly[facility] Phone: basophils (Bld) [#/Vol]10*3/uLMedina HospitalFlypost.co Phone: basophils/100 WBC (Bld)0 %0 - 2 %[facility]um Phone: differential TypeNOT REPORTEDMedina HospitalFlypost.co Phone: eosinophils/100 WBC (Bld)0 %Low1 - 4 %[employer] Phone: erythrocyte distribution width (RBC) [Ratio]14.1 %11.8 - 14.4 %[facility] Phone: Hematocrit (Bld) [Volume fraction]45.2 %36.3 - 47.1 % [facility] Phone: Hemoglobin (Bld) [Mass/Vol]14.1 g/dL11.9 - 15.1 g/dL [facility] Phone: Immature granulocytes/100 WBC (Bld)0 %0[facility]Flypost.co Phone: Interpretation and review of laboratory results AbnormalMedina HospitalFlypost.co Phone: Lymphocytes/100 WBC (Bld)17 %Low24 - 43 %[facility] Phone: MCH (RBC) [Entitic mass]28.8 pg25.2 - 33.5 pgMedina HospitalFlypost.co Phone: MCHC (RBC) [Mass/Vol]31.2 g/dL28.4 - 34.8 g/dLMedina HospitalFlypost.co Phone: MCV (RBC) [Entitic vol]92.4 fL82.6 - 102.9 fLMedina HospitalFlypost.co Phone: Monocytes/100 WBC (Bld)9 %3 - 12 %[facility]um Phone: NRBC Automated0.00.0 per 100 WBCMedina HospitalFlypost.co Phone: platelet EstimateNOT REPORTEDMedina HospitalFlypost.co Phone: Platelet mean volume (Bld) [Entitic vol]9.4 fL8.1 - 13.5 fLMedina HospitalFlypost.co Phone: Platelets (Bld) [#/Vol]239 10*3/uLRosum Phone: [phone] (Bld) [#/Vol]4.89 10*6/uL3.95 - 5.11 m/uLRosum Phone: RBC morphology finding Nom (Bld)NOT REPORTEDMedina HospitalFlypost.co Phone: Segmented neutrophils/100 WBC (Bld)74 %High36 - 65 % Rosum Phone: Segs Absolute6.84[facility] HospitalJ.G. ink Work Phone: WBC (Bld) [#/Vol]9.3 10*3/uLMer [employer] Work Phone: WBC MorphologyNOT REPORTEDMer [employer] Work Phone: Glucose, Whole BloodOrdered By: Gordo De Santiago on [id number] [Mass/Vol]216 mg/mJBnma24 - 100 mg/dLDiley Ridge Medical [facility] [employer] Phone: Interpretation and review of laboratory results AbnormalMedina HospitalFlypost.co Phone: Glucose [Mass/Vol]267 mg/vPBdll61 - 100 mg/dLDiley Ridge [facility] [employer] Phone: Interpretation and review of laboratory results AbnormalDiley Ridge Medical Center [employer] Phone: Glucose [Mass/Vol]245 mg/kJKnne22 - 100 mg/dLDiley Ridge Medical [facility] [employer] Phone: Interpretation and review of laboratory results AbnormalMedina HospitalFlypost.co Phone: Glucose [Mass/Vol]124 mg/bBVqqe47 - 100 mg/dLDiley Ridge Medical [facility] [employer] Phone: Interpretation and review of laboratory results AbnormalMedina HospitalFlypost.co Phone: MRSA DNA Probe, NasalOrdered By: Gordo De Santiago on [id number], DNA, NasalNEGATIVE: MRSA DNA not detected by nucleic acid amplification.NEGATIVE: MRSA DNA not detected by nucleic acid amplificatiDiley Ridge Medical Center [employer] Phone: comment on above: Results should be used as an adjunct to nosocomial control efforts to identify patients needing enhanced precautions. The test is not intended to identify patients with staphylococcal infections. Results should not be used to guide or monitor treatment for MRSA infections. Specimen Description.NASAL SWABMedina HospitalJ.G. ink Work Phone: basic Metabolic PanelOrdered By: Ziggy Smith on [id number] gap [Moles/Vol]9 mmol/L9 - 17 mmol/LMercy Health Work Phone: bun/Cre Kjlkm54QcflKcilx Health Work Phone: calcium [Mass/Vol]8.7 mg/dL8.6 - 10.4 mg/dLMedina HospitalFlypost.co Phone: chloride [Moles/Vol]103 mmol/L98 - 107 mmol/LMmorrow county hospitaly [employer] Phone: cO2 [Moles/Vol]27 mmol/L20 - 31 mmol/LMmorrow county hospitaly [employer] Phone: creatinine [Mass/Vol]0.49 mg/dLLow0.5 - 0.9 mg/dLMedina HospitalFlypost.co Phone: GFR >60>60 mL/minMedina HospitalFlypost.co Phone: GFR CommentMedina HospitalFlypost.co Phone: comment on above:Average GFR for 50-59 years old: 93 mL/min/1.73sq m Chronic Kidney Disease: <60 mL/min/1.73sq m Kidney failure: <15 mL/min/1.73sq m eGFR calculated using average adult body mass. Additional eGFR calculator available at: http://www.[employer]/multiple_crcl_2012.htm GFR Non->60>60 mL/minMedina HospitalFlypost.co Phone: GFR StagingMedina HospitalFlypost.co Phone: comment on above:Stage 1: Some kidney damage normal GFR Stage 2: Mild kidney damage GFR 60-89 Stage 3: Moderate kidney damage GFR 30-59 Stage 4: Severe kidney damage GFR 15-29 Stage 5: Severe kidney damage GFR <15 ESRD - chronic treatment by dialysis or transplant Glucose [Mass/Vol]147 mg/lPKbqy47 - 99 mg/dLMedina HospitalFlypost.co Phone: Interpretation and review of laboratory results AbnormalMedina HospitalFlypost.co Phone: potassium [Moles/Vol]3.9 mmol/L3.7 - 5.3 mmol/LMCignis Phone: sodium [Moles/Vol]139 mmol/L135 - 144 mmol/LMYouEye Work Phone: Urea nitrogen [Mass/Vol]19 mg/dL6 - 20 mg/dLMedina HospitalFlypost.co Phone: cBC Auto DifferentialOrdered By: Ziggy Smith on [id number] Eos #<0.03[facility]Fly[facility] Phone: absolute Immature Granulocyte0.06[facility]Fly[facility] Phone: absolute Lymph #1.68[facility]Fly[facility] Phone: absolute [place] #0.75[facility] Phone: basophils (Bld) [#/Vol]10*3/uLMedina HospitalFlypost.co Phone: basophils/100 WBC (Bld)0 %0 - 2 %[facility] Phone: differential TypeNOT REPORTEDMedina HospitalFlypost.co Phone: eosinophils/100 WBC (Bld)0 %Low1 - 4 %[facility] Phone: erythrocyte distribution width (RBC) [Ratio]14.5 %High 11.8 - 14.4 %[facility] Phone: Hematocrit (Bld) [Volume fraction]44.8 %36.3 - 47.1 % [employer] Phone: Hemoglobin (Bld) [Mass/Vol]13.5 g/dL11.9 - 15.1 g/dL [facility] Phone: Immature granulocytes/100 WBC (Bld)1 %Tojy8MorbiFlypost.co Phone: Interpretation and review of laboratory results AbnormalMedina HospitalFlypost.co Phone: Lymphocytes/100 WBC (Bld)14 %Low24 - 43 %[facility] Phone: [phone] (RBC) [Entitic mass]28.7 pg25.2 - 33.5 pgMedina HospitalFlypost.co Phone: MCHC (RBC) [Mass/Vol]30.1 g/dL28.4 - 34.8 g/dLMedina HospitalFlypost.co Phone: MCV (RBC) [Entitic vol]95.1 fL82.6 - 102.9 fLMedina HospitalFlypost.co Phone: Monocytes/100 WBC (Bld)6 %3 - 12 %[facility] Phone: NRBC Automated0.00.0 per 100 WBCMedina HospitalFlypost.co Phone: Slatelet EstimateNOT REPORTEDMedina HospitalFlypost.co Phone: Platelet mean volume (Bld) [Entitic vol]9.5 fL8.1 - 13.5 fLMedina HospitalFlypost.co Phone: Platelets (Bld) [#/Vol]238 10*3/uLMedina HospitalJ.G. ink Work Phone: RBC (Bld) [#/Vol]4.71 10*6/uL3.95 - 5.11 m/uLMedina HospitalFlypost.co Phone: RBC morphology finding Nom (Bld)NOT REPORTEDMedina HospitalFlypost.co Phone: Segmented neutrophils/100 WBC (Bld)79 %High36 - 65 % [facility] Phone: Segs Absolute9.65HighMedina HospitalFlypost.co Phone: [phone] (Bld) [#/Vol]12.2 10*3/uLRichwood Area Community HospitalRosum Phone: WBC MorphologyNOT REPORTEDMedina HospitalFlypost.co Phone: Glucose, Whole BloodOrdered By: Gordo De Santiago on 55-47-3562Vftwhbu [Mass/Vol]175 mg/sQEiqg26 - 100 mg/dLMerGoodzer Health Work Phone: Interpretation and review of laboratory results AbnormalMerGoodzer Health Work Phone: Glucose [Mass/Vol]339 mg/bFUdhb66 - 100 mg/dLMercy Health Work Phone: Interpretation and review of laboratory results AbnormalMerGoodzer Health Work Phone: Glucose [Mass/Vol]182 mg/tJXrqv75 - 100 mg/dLMercy Health Work Phone: Interpretation and review of laboratory results AbnormalMerJ.G. ink Work Phone: Glucose [Mass/Vol]130 mg/yRPwmq25 - 100 mg/dLMerGoodzer Health Work Phone: Interpretation and review of laboratory results AbnormalMerJ.G. ink Work Phone: blood Gas, ArterialOrdered By: Ziggy Smith on 03-95-7168Lbyfh TestPASSMerJ.G. ink Work Phone: [phone] - 5 %[employer] Work Phone: FIO2NOT REPORTEDSmart[employer] Work Phone: HCO3 (Bld) [Moles/Vol]26.5 mmol/LHigh22 - 26 mmol/L [employer] Work Phone: Interpretation and review of laboratory results AbnormalMerJ.G. ink Work Phone: MethemoglobinNOT REPORTED0 - 1.9 %[employer] Work Phone: ModeNOT REPORTEDMerJ.G. ink Work Phone: Negative Base Excess, Art0.2 mmol/L0 - 2 mmol/LMercy Health Work Phone: NOTIFICATIONNOT REPORTEDMerJ.G. ink Work Phone: NOTIFICATION TIMENOT REPORTEDMercy Health Work Phone: O2 Device/Flow/%CannulaMercy Health Work Phone: Oxygen saturation in Blood89.6 %Low95 - 98 %[facility] Work Phone: OxyhemoglobinNOT UCMWQETW49 - 98 %[facility] Work Phone: [phone], Art, Temp AdjNOT REPORTEDMercy Health Work Phone: gPG6, Hqhyojed62.2HighMercy Health Work Phone: [phone]/CpapNOT REPORTEDMercy Health Work Phone: pH, Art, Temp AdjNOT REPORTEDMer[facility] Health Work Phone: pH, Arterial7.332LowMercy Health Work Phone: [phone], Art, Temp AdjNOT REPORTEDMer Health Work Phone: kL1, Lltgkxme40.2LowMer Health Work Phone: Positive Base Excess, ArtNOT REPORTED0 - 2 mmol/LMercy Health Work Phone: PSVNOT REPORTEDMerGoodzer Health Work Phone: Pt Temp37.0[facility] Work Phone: Pt. PositionFOWLERSMer Health Work Phone: Respiratory rate20 /minMercy Health Work Phone: sample SiteRight Radial ArteryMer Health Work Phone: Set RateNOT REPORTEDMer Health Work Phone: Text for RespiratoryNOT REPORTEDMerGoodzer Health Work Phone: Total HbNOT DDSIOLUV31 - 16 g/dlMercy Health Work Phone: Total RateNOT REPORTEDMercy Health Work Phone: VTNOT REPORTEDMercy Health Work Phone: Urine CultureOrdered By: Wesly Whitten on 04-23-2019 Bacteria identified Cx Nom (U)NO SIGNIFICANT GROWTHDiley Ridge Medical Center [employer] Work Phone: special RequestsNOT REPORTEDMedina HospitalJ.G. ink Work Phone: specimen Description.CLEAN CATCH URINEMedina HospitalJ.G. ink Work Phone: blood Gas, ArterialOrdered By: Oliva Tristan on [phone] TestPASSMedina HospitalJ.G. ink Work Phone: [phone] - 5 %[facility] HospitalV[facility] Work Phone: [phone] Health Work Phone: HCO3 (Bld) [Moles/Vol]23.0 mmol/L22 - 26 mmol/LMmorrow county hospitaly [employer] Work Phone: Interpretation and review of laboratory results AbnormalMedina HospitalJ.G. ink Work Phone: MethemoglobinNOT REPORTED0 - 1.9 %[facility] HospitalV[facility] Work Phone: ModeNOT REPORTEDMedina HospitalJ.G. ink Work Phone: Negative Base Excess, Art4.4 mmol/LHigh0 - 2 mmol/L [facility] HospitalV[facility] Work Phone: NOTIFICATIONNOT [facility] Ash[facility] CityJ.G. ink Work Phone: NOTIFICATION TIMENOT REPORTEDMedina HospitalJ.G. ink Work Phone: O2 Device/Flow/%BIPAPMerJ.G. ink Work Phone: Oxygen saturation in Blood91.1 %Low95 - 98 %[employer] Work Phone: OxyhemoglobinNOT XSKPNRXZ85 - 98 %[employer] Work Phone: pCO2, Art, Temp AdjNOT REPORTEDMedina HospitalJ.G. ink Work Phone: pCO2, Oodmvdxc35.9HighMedina HospitalJ.G. ink Work Phone: peep/CpapNOT REPORTEDMedina HospitalJ.G. ink Work Phone: pH, Art, Temp AdjNOT REPORTEDMerGoodzer Health Work Phone: pH, Arterial7.272LowMercy Health Work Phone: pO2, Art, Temp AdjNOT REPORTEDMerGoodzer Health Work Phone: pO2, Rcpgrigz28.5LowMerGoodzer Health Work Phone: positive Base Excess, ArtNOT REPORTED0 - 2 mmol/LMercy Health Work Phone: pSVNOT REPORTEDMerGoodzer Health Work Phone: pt Temp37.0[facility] Work Phone: pt. PositionNOT REPORTEDMerGoodzer Health Work Phone: respiratory rate16 /minMerGoodzer Health Work Phone: sample SiteRight Brachial ArteryMerJ.G. ink Work Phone: set RateNOT REPORTEDMerGoodzer Health Work Phone: Text for RespiratoryNOT REPORTEDMerGoodzer Health Work Phone: Total HbNOT NFVJOQHS41 - 16 g/dlMerJ.G. ink Work Phone: Total RateNOT REPORTEDMerGoodzer Health Work Phone: VTNOT REPORTEDMerGoodzer Health Work Phone: blood Gas, ArterialOrdered By: Ziggy Smith on [id number] TestPASSMerJ.G. ink Work Phone: [phone] - 5 %mxHeroy Health Work Phone: [phone] Health Work Phone: HCO3 (Bld) [Moles/Vol]25.4 mmol/L22 - 26 mmol/LMercy Health Work Phone: Interpretation and review of laboratory results AbnormalMerJ.G. ink Work Phone: MethemoglobinNOT REPORTED0 - 1.9 %[facility] Work Phone: ModeNOT REPORTEDMerGoodzer Health Work Phone: Negative Base Excess, Art2.9 mmol/LHigh0 - 2 mmol/L [employer] Work Phone: NOTIFICATIONNOT REPORTEDMerGoodzer Health Work Phone: NOTIFICATION TIMENOT REPORTEDMerGoodzer Health Work Phone: O2 Device/Flow/%CannulaMerGoodzer Health Work Phone: Oxygen saturation in Blood90.9 %Low95 - 98 %[employer] Work Phone: OxyhemoglobinNOT URBMEAEH04 - 98 %[employer] Work Phone: [phone], Art, Temp AdjNOT REPORTEDMerGoodzer Health Work Phone: dHA0, Yenvobwg39.5HighMerGoodzer Health Work Phone: [phone]/CpapNOT REPORTEDMerGoodzer Health Work Phone: pH, Art, Temp AdjNOT REPORTEDMerGoodzer Health Work Phone: pH, Arterial7.255LowMerGoodzer Health Work Phone: fZ8, Art, Temp AdjNOT REPORTEDMerGoodzer Health Work Phone: yQ0, Qrbyjcvf49.5LowMerGoodzer Health Work Phone: [phone] Base Excess, ArtNOT REPORTED0 - 2 mmol/LMercy Health Work Phone: PSVNOT REPORTEDMerGoodzer Health Work Phone: Pt Temp37.0[facility] Work Phone: Pt. PositionNOT REPORTEDMerGoodzer Health Work Phone: Respiratory RateNOT REPORTEDMerGoodzer Health Work Phone: [phone] SiteRight Brachial ArteryMerGoodzer Health Work Phone: Set RateNOT REPORTEDMerGoodzer Health Work Phone: Text for RespiratoryNOT REPORTEDRosum Phone: Total HbNOT ZROOQBSU30 - 16 g/dlRosum Phone: Total RateNOT REPORTEDRosum Phone: VTNOT REPORTEDRosum Phone: cBC Auto DifferentialOrdered By: Gordo De Santiago on [id number] Eos #0.00[facility]Fly[facility] Phone: absolute Immature Granulocyte0.00[facility]Fly[facility].co Phone: absolute Lymph #0.80LowRosum Phone: absolute [place] #0.00LowRosum Phone: basophils (Bld) [#/Vol]0.00 10*3/uLMedina HospitalFlypost.co Phone: basophils/100 WBC (Bld)0 %0 - 2 %[facility] Phone: differential TypeNOT REPORTEDRosum Phone: eosinophils/100 WBC (Bld)0 %Low1 - 4 %[facility] Phone: erythrocyte distribution width (RBC) [Ratio]14.3 %11.8 - 14.4 %[facility] Phone: Hematocrit (Bld) [Volume fraction]46.2 %36.3 - 47.1 % [facility] Phone: Hemoglobin (Bld) [Mass/Vol]14.3 g/dL11.9 - 15.1 g/dL [facility] Phone: Immature granulocytes/100 WBC (Bld)0 %0Rosum Phone: Interpretation and review of laboratory results AbnormalRosum Phone: Lymphocytes/100 WBC (Bld)5 %Low24 - 43 %[employer] Work Phone: MCH (RBC) [Entitic mass]28.9 pg25.2 - 33.5 pgMedina HospitalFlypost.co Phone: MCHC (RBC) [Mass/Vol]31.0 g/dL28.4 - 34.8 g/dLMedina HospitalFlypost.co Phone: MCV (RBC) [Entitic vol]93.5 fL82.6 - 102.9 fLMedina HospitalFlypost.co Phone: Monocytes/100 WBC (Bld)0 %Low3 - 12 %Rosum Phone: Morphology [place] (Bld) [Interp]NormalMedina HospitalFlypost.co Phone: NRBC Automated0.00.0 per 100 WBCMedina HospitalFlypost.co Phone: platelet EstimateNOT REPORTEDMedina HospitalFlypost.co Phone: platelet mean volume (Bld) [Entitic vol]9.6 fL8.1 - 13.5 fLMedina HospitalFlypost.co Phone: Platelets (Bld) [#/Vol]208 10*3/uLMedina HospitalFlypost.co Phone: RBC (Bld) [#/Vol]4.94 10*6/uL3.95 - 5.11 m/MaquonFlypost.co Phone: RBC morphology finding Nom (Bld)NOT REPORTEDMedina HospitalFlypost.co Phone: Segmented neutrophils/100 WBC (Bld)95 %High36 - 65 % Rosum Phone: Segs Nvbposkb22.10HighMedina HospitalFlypost.co Phone: WBC (Bld) [#/Vol]15.9 10*3/uLRichwood Area Community HospitalRosum Phone: WBC MorphologyNOT REPORTEDMerJ.G. ink Work Phone: comprehensive Metabolic PanelOrdered By: Gordo De Santiago on 31-56-3003Cbvbnry [Mass/Vol]3.6 g/dL3.5 - 5.2 g/dLDiley Ridge Medical Center [employer] [employer] Phone: Ylbumin/Globulin [Mass ratio]1.1 {ratio}[facility] [employer] Work Phone: QLP [Catalytic activity/Vol]86 U/L35 - 104 U/LMercy [employer] Work Phone: TLT [Catalytic activity/Vol]10 U/L5 - 33 U/LMmorrow county hospitaly [employer] Work Phone: Lnion gap [Moles/Vol]12 mmol/L9 - 17 mmol/LMercy [employer] Work Phone: JST [Catalytic activity/Vol]10 U/L<32MerJ.G. ink Work Phone: Tilirubin [Mass/Vol]0.24 mg/dLLow0.3 - 1.2 mg/dLDiley Ridge Medical Center [employer] [employer] Phone: bun/Cre Zfutx46OlkyVwzbo Health Work Phone: Kalcium [Mass/Vol]8.7 mg/dL8.6 - 10.4 mg/dLDiley Ridge Medical Center [employer] [employer] Phone: Khloride [Moles/Vol]100 mmol/L98 - 107 mmol/LMercy [employer] Work Phone: HO2 [Moles/Vol]25 mmol/L20 - 31 mmol/LMercy [employer] Work Phone: Ireatinine [Mass/Vol]0.41 mg/dLLow0.5 - 0.9 mg/dLMedina HospitalFlypost.co Phone: GFR >60>60 mL/minMedina HospitalJ.G. ink Work Phone: GFR CommentMer [employer] Work Phone: comment on above:Average GFR for 50-59 years old: 93 mL/min/1.73sq m Chronic Kidney Disease: <60 mL/min/1.73sq m Kidney failure: <15 mL/min/1.73sq m eGFR calculated using average adult body mass. Additional eGFR calculator available at: http://www.[employer]apDx/multiple_crcl_2012.htm GFR Non->60>60 mL/minMedina HospitalFlypost.co Phone: GFR StagingMedina HospitalFlypost.co Phone: comment on above:Stage 1: Some kidney damage normal GFR Stage 2: Mild kidney damage GFR 60-89 Stage 3: Moderate kidney damage GFR 30-59 Stage 4: Severe kidney damage GFR 15-29 Stage 5: Severe kidney damage GFR <15 ESRD - chronic treatment by dialysis or transplant Glucose [Mass/Vol]208 mg/wAQzeu67 - 99 mg/dLMedina HospitalFlypost.co Phone: Interpretation and review of laboratory results AbnormalMedina HospitalFlypost.co Phone: potassium [Moles/Vol]4.1 mmol/L3.7 - 5.3 mmol/LMmorrow county hospitaly [employer] Work Phone: protein [Mass/Vol]6.9 g/dL6.4 - 8.3 g/dLMedina HospitalFlypost.co Phone: sodium [Moles/Vol]137 mmol/L135 - 144 mmol/LMmorrow county hospitaly [employer] Work Phone: Urea nitrogen [Mass/Vol]12 mg/dL6 - 20 mg/dLMedina HospitalFlypost.co Phone: Glucose, Whole BloodOrdered By: Gordo De Santiago on 01-44-2041Byclvgw [Mass/Vol]214 mg/sCYwse48 - 100 mg/dLMedina HospitalFlypost.co Phone: Interpretation and review of laboratory results AbnormalMedina HospitalFlypost.co Phone: lactic acid, plasmaOrdered By: Oliva Tristan on [id number] [Moles/Vol]1.2 mmol/L0.5 - 2.2 mmol/LMmorrow county hospitaly [employer] Work Phone: lactic Acid, Whole BloodNOT REPORTED0.7 - 2.1 mmol/L [facility] [employer] Work Phone: basic Metabolic Panel w/ Reflex to MGOrdered By: Albert Ibrahim on 29-96-2992Qdlpa gap [Moles/Vol]13 mmol/L9 - 17 mmol/LMmorrow county hospitaly [employer] Work Phone: bun/Cre Bahzc58ImrnTpphy Health Work Phone: calcium [Mass/Vol]9.0 mg/dL8.6 - 10.4 mg/dLMedina HospitalFlypost.co Phone: chloride [Moles/Vol]94 mmol/LLow98 - 107 mmol/LMmorrow county hospitaly [employer] Phone: cO2 [Moles/Vol]25 mmol/L20 - 31 mmol/LMmorrow county hospitalVsnap Work Phone: creatinine [Mass/Vol]0.47 mg/dLLow0.5 - 0.9 mg/dLMedina HospitalFlypost.co Phone: GFR >60>60 mL/minMedina HospitalFlypost.co Phone: GFR CommentMedina HospitalFlypost.co Phone: comment on above:Average GFR for 50-59 years old: 93 mL/min/1.73sq m Chronic Kidney Disease: <60 mL/min/1.73sq m Kidney failure: <15 mL/min/1.73sq m eGFR calculated using average adult body mass. Additional eGFR calculator available at: http://www.Ori[employer]/multiple_crcl_2012.htm GFR Non->60>60 mL/minMedina HospitalFlypost.co Phone: GFR StagingMedina HospitalFlypost.co Phone: comment on above:Stage 1: Some kidney damage normal GFR Stage 2: Mild kidney damage GFR 60-89 Stage 3: Moderate kidney damage GFR 30-59 Stage 4: Severe kidney damage GFR 15-29 Stage 5: Severe kidney damage GFR <15 ESRD - chronic treatment by dialysis or transplant Glucose [Mass/Vol]160 mg/nDEixk36 - 99 mg/dLRosum Phone: Interpretation and review of laboratory results AbnormalMedina HospitalFlypost.co Phone: potassium [Moles/Vol]3.8 mmol/L3.7 - 5.3 mmol/LMCignis Phone: sodium [Moles/Vol]132 mmol/TWiu548 - 144 mmol/LMmorrow county hospitaly [employer] Phone: Urea nitrogen [Mass/Vol]13 mg/dL6 - 20 mg/dLMedina HospitalFlypost.co Phone: cBC Auto DifferentialOrdered By: Albert Ibrahim on 48-74-1373Nhljvlvx Eos #0.17[facility] HospitalFlypost.co Phone: absolute Immature Granulocyte0.13[facility] HospitalFlypost.co Phone: absolute Lymph #1.06LowMedina HospitalFlypost.co Phone: absolute [place] #1.00[facility]Fly[facility].co Phone: basophils (Bld) [#/Vol]0.05 10*3/uLMedina HospitalFlypost.co Phone: basophils/100 WBC (Bld)0 %0 - 2 %[facility] Phone: differential TypeNOT REPORTEDMerFlypost.co Phone: eosinophils/100 WBC (Bld)1 %1 - 4 %[employer] Phone: erythrocyte distribution width (RBC) [Ratio]14.4 %11.8 - 14.4 %[facility] Phone: Hematocrit (Bld) [Volume fraction]45.6 %36.3 - 47.1 % [employer] Phone: Hemoglobin (Bld) [Mass/Vol]14.5 g/dL11.9 - 15.1 g/dL Ros[facility] Phone: Immature granulocytes/100 WBC (Bld)1 %Qxwp4ExwmrFlypost.co Phone: Interpretation and review of laboratory results AbnormalMedina HospitalFlypost.co Phone: Lymphocytes/100 WBC (Bld)6 %Low24 - 43 %[employer] Phone: MCH (RBC) [Entitic mass]29.6 pg25.2 - 33.5 pgMedina HospitalFlypost.co Phone: MCHC (RBC) [Mass/Vol]31.8 g/dL28.4 - 34.8 g/dLMedina HospitalFlypost.co Phone: MCV (RBC) [Entitic vol]93.1 fL82.6 - 102.9 fLMedina HospitalFlypost.co Phone: Monocytes/100 WBC (Bld)5 %3 - 12 %[facility] Phone: NRBC Automated0.00.0 per 100 WBCMedina HospitalFlypost.co Phone: platelet EstimateNOT REPORTEDMedina HospitalFlypost.co Phone: Jlatelet mean volume (Bld) [Entitic vol]9.5 fL8.1 - 13.5 fLMedina HospitalFlypost.co Phone: Platelets (Bld) [#/Vol]216 10*3/uLMedina HospitalFlypost.co Phone: RBC (Bld) [#/Vol]4.90 10*6/uL3.95 - 5.11 m/Quaero Phone: RBC morphology finding Nom (Bld)NOT REPORTEDMedina HospitalFlypost.co Phone: segmented neutrophils/100 WBC (Bld)87 %High36 - 65 % Ros[facility] Phone: segs Tqcbzeym49.02[facility] HospitalRosum Phone: WBC (Bld) [#/Vol]18.4 10*3/uLRichwood Area Community HospitalRosum Phone: WBC MorphologyNOT REPORTEDRosum Phone: cT CHEST W CONTRASTOrdered By: Albert Ibrahim on [id number]/increased bilateral ground-glass infiltrates. Differential considerations include infectious, inflammatory, and neoplastic etiologies. Prominent pulmonary artery may reflect pulmonary artery hypertension. This may account for the right hilar fullness as no distinct mass or pathologic lymphadenopathy is noted.Rosum Phone: eXAMINATION: CT OF THE CHEST WITH CONTRAST 04/21/2019 8:00 pm TECHNIQUE: CT of the chest was performed with the administration of intravenous contrast. Multiplanar reformatted images are provided for review. Dose modulation, iterative reconstruction, and/or weight based adjustment of the mA/kV was utilized to reduce the radiation dose to as low as reasonably achievable. COMPARISON: Chest x-ray from today and CT chest June 05, 2018 HISTORY: ORDERING SYSTEM PROVIDED HISTORY: abnormal cxr TECHNOLOGIST PROVIDED HISTORY: abnormal cxr FINDINGS: Mediastinum: Thoracic aorta and central portion of the pulmonary artery opacify normally. The ascending thoracic aorta is of normal caliber. Heart size is normal. There is no pericardial effusion. No mediastinal or hilar lymph nodes exceed the CT criteriafor abnormal enlargement. The main pulmonary artery is larger than the ascending aorta and mm in diameter. Calcific coronary artery disease noted. No hilar mass. Right and left pulmonary arteries appear prominent bilaterally. Lungs/pleura: Bilateral patchy ground-glass infiltrates. Right middle lobe consolidation. Upper Abdomen: Normal Soft Tissues/Bones: Employma Phone: edi, Unm [facility] Incoming Radiant Results From [email or web address] - 04/21/2019 8:41 PM EST EXAMINATION: CT OF THE CHEST WITH CONTRAST 04/21/2019 8:00 pm TECHNIQUE: CT of the chest was performed with the administration of intravenous contrast. Multiplanar reformatted images are provided for review. Dose modulation, iterative reconstruction, and/or weight based adjustment of the mA/kV was utilized to reduce the radiation dose to as low as reasonably achievable. COMPARISON: Chest x-ray from today and CT chest June 05, 2018 HISTORY: ORDERING SYSTEM PROVIDED HISTORY: abnormal cxr TECHNOLOGIST PROVIDED HISTORY: abnormal cxr FINDINGS: Mediastinum: Thoracic aorta and central portion of the pulmonary artery opacify normally. The ascending thoracic aorta is of normal caliber. Heart size is normal. There is no pericardial effusion. No mediastinal or hilar lymph nodes exceed the CT criteria for abnormal enlargement. The main pulmonary artery is larger than the ascending aorta and measures 41 mm in diameter. Calcific coronary artery disease noted. No hilar mass. Right and left pulmonary arteries appear prominent bilaterally. Lungs/pleura: Bilateral patchy ground-glass infiltrates. Right middle lobe consolidation. Upper Abdomen: Normal Soft Tissues/Bones: Normal IMPRESSION: New/increased bilateral ground-glass infiltrates. Differential considerations include infectious, inflammatory, and neoplastic etiologies. Prominent pulmonary artery may reflect pulmonary artery hypertension. This may account for the right hilar fullness as no distinct mass or pathologic lymphadenopathy is noted. [facility] Phone: Hepatic function panelOrdered By: Wesly Whitten on [id number] [Mass/Vol]3.9 g/dL3.5 - 5.2 g/dLRosum Phone: albumin/Globulin [Mass ratio]1.3 {ratio}[facility] Phone: aLP [Catalytic activity/Vol]95 U/L35 - 104 U/LMCignis Phone: aLT [Catalytic activity/Vol]10 U/L5 - 33 U/Tamr Phone: aST [Catalytic activity/Vol]13 U/L<32[facility] Phone: bilirubin [Mass/Vol]0.33 mg/dL0.3 - 1.2 mg/dLRosum Phone: bilirubin, IndirectCANNOT BE CALCULATED0 - 1 mg/dL [facility] Phone: bilirubin.indirect [Mass/Vol]mg/dL<0.31 mg/dLDiley Ridge Medical Center [facility] Work Phone: GlobulinNOT REPORTED1.5 - 3.8 g/dLMercy Health Work Phone: protein [Mass/Vol]6.9 g/dL6.4 - 8.3 g/dLDiley Ridge Medical Center [facility] Work Phone: lactic AcidOrdered By: Albert Ibrahim on 04-21-2019 Lactate [Moles/Vol]0.6 mmol/L0.5 - 2.2 mmol/LMercy Health Work Phone: [phone]-UQYNrbwmer By: Wesly Whitten on [id number] Coag (PPP) [Relative time]1.0 {INR}[facility] [employer] Work Phone: pT Coag (PPP) [Time]10 sMercy Health Work Phone: UrinalysisOrdered By: Wesly Whitten on 04-21-2019 Bilirubin UrineNegativeNEGATIVEMerGoodzer Health Work Phone: color, UAYELLOWYELLOWMer Health Work Phone: Glucose, UrNegativeNEGATIVEMercy Health Work Phone: Interpretation and review of laboratory results AbnormalDiley Ridge Medical Center [facility] Work Phone: Ketones Ql (U)NegativeNEGATIVEMercy Health Work Phone: leukocyte esterase Test strip Ql (U)NegativeNEGATIVE [facility] Work Phone: Nitrite, UrineNegativeNEGATIVEMercy Health Work Phone: pH, UA6.5[facility] Work Phone: protein, UANegativeNEGATIVEMercy Health Work Phone: specific [place], UA<1.005LowMer Health Work Phone: Turbidity UACLEARCLEARDiley Ridge Medical Center [employer] Phone: Urinalysis CommentsNOT REPORTEDMedina HospitalFlypost.co Phone: Urine HgbNegativeNEGATIVEDiley Ridge Medical Center [employer] Phone: Urobilinogen, UrineNormalNormalDiley Ridge Medical Center [employer] Phone: XR CHEST STANDARD (2 VW)Ordered By: Albert Ibrahim on [id number] right hilar fullness. Mild edema. Recommend CT chest with IV contrast.[facility] Phone: eXAMINATION: TWO XRAY VIEWS OF THE CHEST 04/21/2019 6:14 pm COMPARISON: January 13, 2019 HISTORY: ORDERING SYSTEM PROVIDED HISTORY: cough TECHNOLOGIST PROVIDED HISTORY: cough FINDINGS: New right hilarfullness. Mild edema. Small bilateral pleural effusions. Heart and mediastinum normal. Bony thorax normal.[facility] Phone: edi, pn Incoming Radiant Results From [facility] - 04/21/2019 6:21 PM EST EXAMINATION: TWO XRAY VIEWS OF THE CHEST 04/21/2019 6:14 pm COMPARISON: January 13, 2019 HISTORY: ORDERING SYSTEM PROVIDED HISTORY: cough TECHNOLOGIST PROVIDED HISTORY: cough FINDINGS: New right hilar fullness. Mild edema. Small bilateral pleural effusions. Heart and mediastinum normal. Bony thorax normal. IMPRESSION: New right hilar fullness. Mild edema. Recommend CT chest with IV contrast. [facility] Phone: basic Metabolic Panel w/ Reflex to MGOrdered By: Harish Sebastian on [id number] gap [Moles/Vol]12 mmol/L9 - 17 mmol/LMmorrow county hospitaly [employer] Phone: bun/Cre Lliyb83QvkgSbzae Health Work Phone: calcium [Mass/Vol]9.2 mg/dL8.6 - 10.4 mg/dLMedina HospitalFlypost.co Phone: chloride [Moles/Vol]95 mmol/LLow98 - 107 mmol/LMBritestream NetworksMicrobial Solutions Phone: cO2 [Moles/Vol]28 mmol/L20 - 31 mmol/LMCignis Phone: creatinine [Mass/Vol]0.66 mg/dL0.5 - 0.9 mg/dLMedina HospitalFlypost.co Phone: GFR >60>60 mL/minMedina HospitalFlypost.co Phone: GFR CommentMedina HospitalFlypost.co Phone: comment on above:Average GFR for 50-59 years old: 93 mL/min/1.73sq m Chronic Kidney Disease: <60 mL/min/1.73sq m Kidney failure: <15 mL/min/1.73sq m eGFR calculated using average adult body mass. Additional eGFR calculator available at: http://www.[employer]/multiple_crcl_2012.htm GFR Non->60>60 mL/minMedina HospitalFlypost.co Phone: GFR StagingMedina HospitalFlypost.co Phone: comment on above:Stage 1: Some kidney damage normal GFR Stage 2: Mild kidney damage GFR 60-89 Stage 3: Moderate kidney damage GFR 30-59 Stage 4: Severe kidney damage GFR 15-29 Stage 5: Severe kidney damage GFR <15 ESRD - chronic treatment by dialysis or transplant Glucose [Mass/Vol]105 mg/nEKiqq61 - 99 mg/dLMedina HospitalFlypost.co Phone: Interpretation and review of laboratory results AbnormalMedina HospitalFlypost.co Phone: potassium [Moles/Vol]4.6 mmol/L3.7 - 5.3 mmol/LMmorrow county hospitaly [employer] Work Phone: sodium [Moles/Vol]135 mmol/L135 - 144 mmol/LMBritestream Networksy [employer] Phone: Urea nitrogen [Mass/Vol]15 mg/dL6 - 20 mg/dLMedina HospitalFlypost.co Phone: cBC Auto DifferentialOrdered By: Harish Sebastian on [id number] Eos #0.50HighMedina HospitalFlypost.co Phone: absolute Immature Granulocyte0.03[facility] Phone: absolute Lymph #2.66[facility] Phone: absolute [place] #0.65[facility] Phone: basophils (Bld) [#/Vol]0.08 10*3/uLMedina HospitalFlypost.co Phone: basophils/100 WBC (Bld)1 %0 - 2 %[facility] Phone: differential TypeNOT REPORTEDMedina HospitalFlypost.co Phone: eosinophils/100 WBC (Bld)5 %High1 - 4 %[facility] Phone: erythrocyte distribution width (RBC) [Ratio]14.0 %11.8 - 14.4 %[facility] Phone: Hematocrit (Bld) [Volume fraction]48.8 %High36.3 - 47.1 %[facility] Phone: Hemoglobin (Bld) [Mass/Vol]15.3 g/uDJfcx24.9 - 15.1 g/dLMedina HospitalFlypost.co Phone: Immature granulocytes/100 WBC (Bld)0 %0Med[facility]Fly[facility] Phone: Interpretation and review of laboratory results AbnormalMedina HospitalFlypost.co Phone: lymphocytes/100 WBC (Bld)25 %24 - 43 %[facility] Phone: MCH (RBC) [Entitic mass]29.4 pg25.2 - 33.5 pgMedina HospitalFlypost.co Phone: MCHC (RBC) [Mass/Vol]31.4 g/dL28.4 - 34.8 g/dLRosum Phone: MCV (RBC) [Entitic vol]93.8 fL82.6 - 102.9 fLRosum Phone: Monocytes/100 WBC (Bld)6 %3 - 12 %[facility] Phone: NRBC Automated0.00.0 per 100 WBCRosum Phone: platelet EstimateNOT REPORTEDRosum Phone: platelet mean volume (Bld) [Entitic vol]9.3 fL8.1 - 13.5 fLRosum Phone: Platelets (Bld) [#/Vol]275 10*3/uLRosum Phone: RBC (Bld) [#/Vol]5.20 10*6/uLHigh3.95 - 5.11 m/uLRosum Phone: rBC morphology finding Nom (Bld)NOT REPORTEDMedina HospitalFlypost.co Phone: segmented neutrophils/100 WBC (Bld)63 %36 - 65 %[facility] Phone: segs Absolute6.54[facility] Phone: WBC (Bld) [#/Vol]10.5 10*3/[employer] Phone: WBC MorphologyNOT REPORTEDRosum Phone: cT Head WO ContrastOrdered By: Harish Sebastian on [id number] acute intracranial abnormality.[facility] Phone: eXAMINATION: CT OF THE HEAD WITHOUT CONTRAST 04/12/2019 1:31 pm TECHNIQUE: CT of the head was performed without the administration of intravenous contrast. Dose modulation, iterative reconstruction, and/or weight based adjustment of the mA/kV was utilized to reduce the radiation dose to as low as reasonably achievable. COMPARISON: 04/08/2017 HISTORY: ORDERING SYSTEM PROVIDED HISTORY: dizziness TECHNOLOGIST PROVIDED HISTORY: dizziness FINDINGS: BRAIN/VENTRICLES: There is no acute intracranial hemorrhage, mass effect or midline shift. No abnormal extra-axial fluid collection. The stephenson-white diffe rentiation is maintained without evidence of an acute infarct. There is no evidence of hydrocephalus. ORBITS: The visualized portion of the orbits demonstrate no acute abnormality. SINUSES: The visualized paranasal sinuses and mastoid air cells demonstrate no acute abnormality. SOFT TISSUES/SKULL: No acute abnormality of the visualized skull or soft tissues.[facility] Phone: edi, [facility] Incoming Radiant Results From [facility] - 04/12/2019 2:07 PM EST EXAMINATION: CT OF THE HEAD WITHOUT CONTRAST 04/12/2019 1:31 pm TECHNIQUE: CT of the head was performed without the administration of intravenous contrast. Dose modulation, iterative reconstruction, and/or weight based adjustment of the mA/kV was utilized to reduce the radiation dose to as low as reasonably achievable. COMPARISON: 04/08/2017 HISTORY: ORDERING SYSTEM PROVIDED HISTORY: dizziness TECHNOLOGIST PROVIDED HISTORY: dizziness FINDINGS: BRAIN/VENTRICLES: There is no acute intracranial hemorrhage, mass effect or midline shift. No abnormal extra-axial fluid collection. The stephenson-white differentiation is maintained without evidence of an acute infarct. There is no evidence of hydrocephalus. ORBITS: The visualized portion of the orbits demonstrate no acute abnormality. SINUSES: The visualized paranasal sinuses and mastoid air cells demonstrate no acute abnormality. SOFT TISSUES/SKULL: No acute abnormality of the visualized skull or soft tissues. IMPRESSION: No acute intracranial abnormality. [facility] Phone: No Panel InformationOrdered By: Harish Sebastian on [id number] spine: 1. Mild to moderate degenerative changes in the cervical spine. 2. No clear evidence for acute vertebral body height loss within the cervical spine. Left shoulder: No acute fracture or dislocation. Left humerus: No acute osseous abnormality. Left elbow: No acute osseous abnormality. Left wrist: 1. Mild osteoarthrosis. 2. Probable sequela of remote trauma at the radial aspect of the 1st CMC joint. 3. No acute fracture or dislocation.[facility] Phone: eXAMINATION: THREE XRAY VIEWS OF THE LEFT ELBOW; 4 XRAY VIEWS OF THE CERVICAL SPINE; TWO XRAY VIEWSOF THE LEFT HUMERUS; THREE XRAY VIEWS OF THE LEFT SHOULDER; 3 XRAY VIEWS OF THE LEFT WRIST 04/12/2019 11:11 am COMPARISON: Left shoulder and cervical spine from 01/13/2019, left humerus from 01/17/2019, left elbow from 05/24/2009 HISTORY: ORDERING SYSTEM PROVIDED HISTORY: Pain fall TECHNOLOGIST PROVIDED HISTORY: Pain fall 58-year-old female with cervical spine and left upper extremity pain pain after a fall FINDINGS: Cervical spine: Cervical spine is imaged from the skull base to the inferior end plate of C6 on the lateral view. Gross preservation of the vertebral body heights. Moderate multilevel disc space narrowing and mild multilevel hypertrophic osteophyte spur formation. Mild multilevelfacet arthrosis. Alignment well maintained. No prevertebral soft tissue swelling. Odontoid appears intact. Lateral masses are symmetric in appearance. Atherosclerotic calcification of the bilateral carotid vessels. Visualized ribs and lung apices grossly unremarkable. Left shoulder: Left AC and glenohumeral joints grossly unremarkable. Probable loose body measuring up to 4 mm in the bicipital groove. Visualized ribs grossly unremarkable. Bilateral carotid vascular calcifications. No acute fracture or dislocation. Left humerus: Left humerus appears intact. No acute fracture or dislocation. Visualized left-sided ribs appear intact. Probable loose body within the bicipital groove measuring up to 4 mm. Left AC and glenohumeral joints grossly unremarkable. Left elbow: Osseous alignment is normal. Joint spaces are well maintained. No acute fracture or gross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 cervical degenerative changes. 3. Stable appearance of the chest with mediastinal/hilar lymphadenopathy. No acute traumaticthoracic abnormality. 4. Normal left shoulder alignment with milder glenohumeral arthropathy. No acute abnormality. 5. 4 mm ossicle of the left proximal arm which may relate to a biceps tendon sheathbody.[facility] Hospitalnihealthsouth rehabilitation hospital of [facility] [id number] I.cardiac [Mass/Vol][place], KYComment on above: Reference Range: <0.03 Within reference range. 0.03-0.09 Possible myocardial damage. Repeat at appropriate intervals to rule out chronic elevation. >= 0.10 Indicative of myocardial damage. Patients with high levels of Biotin oral intake (i.e >5mg/day) may have falsely decreased Troponin T levels. Samples collected within 8 hours of biotin intake may require additional information for diagnosis. Troponin T.cardiac [Mass/Vol]ug/L<0.03 ng/mLPremier Health, HIComment on above:Troponin T results cannot be compared to Troponin-I results.Troponin, High SensitivityNOT REPORTED0 - 14 ng/LMGerman Hospitaloponin I.cardiac [Mass/Vol][facility], HIComment on above:Reference Range: <0.03 Within reference range. 0.03-0.09 Possible myocardial damage. Repeat at appropriate intervals to rule out chronic elevation. >= 0.10 Indicative of myocardial damage. Patients with high levels of Biotin oral intake (i.e >5mg/day) may have falsely decreased Troponin T levels. Samples collected within 8 hours of biotin intake may require additional information for diagnosis. Troponin T.cardiac [Mass/Vol]ug/L<0.03 ng/mLMercy Health- [place], KYComment on above:Troponin T results cannot be compared to Troponin-I results.Troponin, High SensitivityNOT REPORTED0 - 14 ng/LMercy Health- [place], KYUrinalysis, reflex to microscopicon [id number] UrineNegativeNEGATIVEMercy Health- [place], [place] Color, UAYELLOWYELLOWMercy Health- [place], KYGlucose, UrNegativeNEGATIVEMercy Health- [place], KYKetones Ql (U)NegativeNEGATIVEMercy Health- [place], KYLeukocyte esterase Test strip Ql (U)NegativeNEGATIVEMercy Health- [place], KYNitrite, Urine NegativeNEGATIVEMercy Health- [place], KYpH, UA6.0[facility]- [place], KYProtein (U) [Mass/Vol]NegativeNEGATIVEMercy Health- [place], KYSpecific [place], UA1.015[facility]- [place], KYTurbidity UACLEARCLEARMercy Health- [place], KYUrinalysis CommentsNOT REPORTEDMercy Health- [place], KYUrine HgbNegativeNEGATIVEMercy Health- [place], [place] Urobilinogen, UrineNormalNormalMercy Health- [place], KYXR LUMBAR SPINE (2-3 VIEWS)on [id number]: THREE XRAY VIEWS OF THE LUMBAR SPINE 01/13/2019 2:10 pm COMPARISON: Lumbar spine radiograph 02/11/2012 HISTORY: ORDERING SYSTEM PROVIDED HISTORY: injury TECHNOLOGIST PROVIDED HISTORY: injury FINDINGS: Three views provided. Extensive arterial calcifications with no evidence of aneurysm f ormation. Prior cholecystectomy. Normal bowel gas pattern. Mild decreased bone mineral density. Five non rib-bearing lumbar bodies demonstrate normal lordotic curvature, alignment, and heights. L4 through S1 degenerative disc disease. L3 through S1 bilateral articular facet degenerative changes. Normal bilateral sacroiliac and hip alignment. No acute fracture.[employer]- [place], KYEdi, Mhpn Incoming Radiant Results From [email or web address] - 01/13/2019 3:55 PM EDT EXAMINATION: THREE XRAY VIEWS OF THE LUMBAR SPINE 01/13/2019 2:10 pm COMPARISON: Lumbar spine radiograph 02/11/2012 HISTORY: ORDERING SYSTEM PROVIDED HISTORY: injury TECHNOLOGIST PROVIDED HISTORY: injury FINDINGS: Three views provided. Extensive arterial calcifications with no evidence of aneurysm formation. Prior cholecystectomy. Normal bowel gas pattern. Mild decreased bone mineral density. Five non rib-bearing lumbar bodies demonstrate normal lordotic curvature, alignment, and heights. L4 through S1 degenerative disc disease. L3 through S1 bilateral articular facet degenerative changes. Normal bilateral sacroiliac and hip alignment. No acute fracture. IMPRESSION: 1. Normal lumbar spine alignment with no acute abnormality. 2. 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 [facility] HI1. Normal lumbar spine alignment with no acute abnormality. 2. Multilevel lumbar spine degenerativedisc and joint disease.[facility], HIXR SHOULDER LEFT (MIN 2 VIEWS)on [id number] calcific tendinosis of left supraspinatus. Mild degenerative changes of the left glenohumeral joint. Mild degenerative changes of the left acromioclavicular joint.[facility], [place] EXAMINATION: THREE XRAY VIEWS OF THE LEFT SHOULDER 01/12/2019 3:48 pm COMPARISON: Left shoulder radiographs dated 08/03/2017 HISTORY: ORDERING SYSTEM PROVIDED HISTORY: Pain of left upper extremity FINDINGS: Mild calcific tendinosis of left supraspinatus. Mild degenerative changes of the left glenohu meral joint. Mild degenerative changes of the left acromioclavicular joint. Subacromial space is maintained.[facility] HealthAudelia Mhpn Incoming Radiant Results From [email or web address]/[facility] - 01/12/2019 4:20 PM EDT EXAMINATION: THREE XRAY VIEWS OF THE LEFT SHOULDER 01/12/2019 3:48 pm COMPARISON: Left shoulder radiographs dated 08/03/2017 HISTORY: ORDERING SYSTEM PROVIDED HISTORY: Pain of left upper extremity FINDINGS: Mild calcific tendinosis of left supraspinatus. Mild degenerative changes of the left glenohumeral joint. Mild degenerative changes of the left acromioclavicular joint. Subacromial space is maintained. IMPRESSION: Mild calcific tendinosis of left supraspinatus. Mild degenerative changes of the left glenohumeral joint. Mild degenerative changes of the left acromioclavicular joint. [facility], KYHematologyon [id number] (Bld) [Mass/Vol]Negative (NEG)[facility] Work Phone: Comment on above:Note: Responsible Observer: KLEBER TREJO ([id number])Laboratory - Microbiology and Antimicrobial susceptibilityOrdered By: Vahid Nagy on [id number] identified Cx Nom (Unsp spec)MANYAbnormal (NONE )[facility] Work Phone: Comment on above:Note: Responsible Observer: KLEBER TREJO ([id number])Laboratory - UrinalysisOrdered By: Vahid Nagy on 09-30-2018 Epithelial cells LM Ql (Urine sed)2 TO 5 /HPF(0-5 )[facility] Work Phone: Comment on above:Note: Responsible Observer: KLEBER [id number])Metabolic Panelon [id number].direct [Mass/Vol]Negative (NEG)[facility] Work Phone: Comment on above:Note: Responsible Observer: KLEBER TREJO ([id number])Glucose [Mass/Vol]Negative(NEG)[facility] Work Phone: Comment on above:Note: Responsible Observer: KLEBER TREJO ([id number])Protein [Mass/Vol]Negative(NEG)[facility] Work Phone: Comment on above:Note: Responsible Observer: KLEBER TREJO ([id number])No Panel InformationOrdered By: Vahid Nagy on 09-30-2018 Acetoacetic Acid,UrNegative(NEG )[facility] Work Phone: Comment on above:Note: Responsible Observer: KLEBER TREJO ([id number])Bilirubin, SemiQt,UrNegative(NEG )[facility] Work Phone: Comment on above:Note: Responsible Observer: KLEBER [id number])Casts10 TO 20 HYALINE /LPF(0-8 )[facility] Work Phone: Comment on above:Note: Reference range defined for non-centrifuged specimen.Responsible Observer: KLEBER TREJO ([id number]) Glucose,Semi-qnt,UrNegative(NEG )[facility] Work Phone: Comment on above:Note: Responsible Observer: KLEBER TREJO ([id number])Hemoglobin, UrNegative(NEG )[facility] Work Phone: Comment on above:Note: Responsible Observer: KLEBER TREJO ([id number])Leuckocyte EsteraseNegative(NEG )[facility] Work Phone: Comment on above:Note: Responsible Observer: KLEBER TREJO ([id number])Nitrite,UrPositiveAbnormal(NEG )[facility] Work Phone: Comment on above:Note: Responsible Observer: KLEBER TREJO ([id number])Protein, Semi-qnt,UrNegative(NEG )[facility] Work Phone: Comment on above:Note: Responsible Observer: KLEBER TREJO ([id number])Urine RBC's0 TO 2 /HPF(0-4 )[facility] Work Phone: Comment on above:Note: Reference range defined for non-centrifuged specimen.Responsible Observer: KLEBER TREJO ([id number])Urine WBC's0 TO 2 /HPF(0-5 )[facility] Work Phone: Comment on above:Note: Responsible Observer: KLEBER TREJO ([id number])OtherOrdered By: Vahid Nagy on [id number],Urine,CCSee Note [facility] Work Phone: Comment on above:Note: Specimen Description .CLEAN CATCH URINESpecial Requests NOT REPORTEDCulture KLEBSIELLA PNEUMONIAE >941005 CFU/MLReport Status FINAL 10/02/2018SUSCEPTIBILITYOrganism KLEBSIELLA PNEUMONIAEMethod MICAmikacin NOT REPORTEDAmpicillin 16 RESISTANTAmpicillin/Sulbactam NOT REPORTEDAztreonam <=1 SUSCEPTIBLECefazolin <=4 SUSCEPTIBLE Cefazolin sensitivity results can be used to predict the effe ctiveness of oral cephalosporins (eg. Cephalexin) in uncomplicated Urinary Tract Infections due to E. coli, K. pneumoniae, and P. mirabilis Cefepime NOT REPORTEDCeftriaxone <=1 SUSCEPTIBLECiprofloxacin <=0.25 SUSCEPTIBLEErtapenem NOT REPORTEDESBL NEGATIVEGentamicin <=1 SUSCEPTIBLEMeropenemNOT REPORTEDNitrofurantoin 32 SUSCEPTIBLETigecycline NOT REPORTEDTobramycin <=1 SUSCEPTIBLETrimethoprim/Sulfa <=20 SUSCEPTIBLEPiperacillin/Tazobactam <=4 SUSCEPTIBLEResponsible Observer: KLEBER TREJO ([id number])Reported PhysiciansSee NoteWestwood Lodge Hospital Work Phone: Comment on above:Note: Reported Physicians:Ordering: Attending: Vahid Calderón-----See NoteHealth [facility] Work Phone: Comment on above:Note: Responsible Observer: KLEBER TREJO ([id number])CommentNOT REPORTEDHealth [facility] Work Phone: [phone], RenalNOT REPORTED /HPF(0 )[facility] Work Phone: [phone] StrandsNOT REPORTED(NONE )[facility] Work Phone: Other ObservationsNOT REPORTED(NREQ )[facility] Work Phone: [phone] Lab:see noteWestwood Lodge Hospital Work Phone: Comment on above:Note: [employer] [address] [facility] [address] PH,Ur7.0(5.0-8.0 )[facility] Work Phone: Comment on above:Note: Responsible Observer: KLEBER TREJO ([id number])Reported PhysiciansSee NoteWestwood Lodge Hospital Work Phone: Comment on above:Note: Reported Physicians:Ordering: Joo Calderónpec. [place],Ur1.025(1.005-1.030 )[facility] Work Phone: Comment on above:Note: Responsible Observer: KLEBER TREJO ([id number])TrichomonasNOT REPORTED(NONE )[facility] Work Phone: TurbidityCLOUDYAbnormal(CLEAR )[facility] Work Phone: [phone] on above:Note: Responsible Observer: KLEBER [id number])Urobilinogen,UrNormal(NORM )[facility] Work Phone: Comment on above:Note: Responsible Observer: KLEBER TREJO ([id number])Otheron [id number] Acid,UrNegative(NEG)[facility] Work Phone: Comment on above:Note: Responsible Observer: KLEBER TREJO ([id number])Leuckocyte EsteraseNegative(NEG)[facility] Work Phone: Comment on above:Note: Responsible Observer: KLEBER TREJO ([id number])Nitrite,UrPositiveAbnormal(NEG)[facility] Work Phone: Comment on above:Note: Responsible Observer: KLEBER TREJO ([id number])RBC (U) [#/Vol]0 TO 2 /HPF(0-4)[facility] Work Phone: Comment on above:Note: Reference range defined for non-centrifuged specimen.Responsible Observer: KLEBER TREJO ([id number])Urinalysis Ordered By: Vahid Nagy on [id number] sediment LM Ql (Urine sed)NOT REPORTED(NONE )[facility] Work Phone: [phone] (U)YELLOW(YEL )[facility] Work Phone: Comment on above:Note: Responsible Observer: KLEBER TREJO ([id number])Crystals LM Nom (Urine sed)NOT REPORTED /HPF(NONE )[facility] Work Phone: [phone] LM Ql (Urine sed)NOT REPORTED(NONE )[facility] Work Phone: Urinalysison 15-28-8081Zcvwfngq LM.HPF (Urine sed) [#/Area]MANYAbnormal(NONE)[facility] Work Phone: Comment on above:Note: Responsible Observer: KLEBER TREJO ([id number])Casts LM.LPF (Urine sed) [#/Area]10 TO 20 HYALINE /LPF(0-8)[facility] Work Phone: Comment on above:Note: Reference range defined for non-centrifuged specimen.Responsible Observer: KLEBER TREJO ([id number])Epithelial cells LM.HPF (Urine sed) [#/Area]2 TO 5 /HPF(0-5)[facility] Work Phone: Comment on above:Note: Responsible Observer: KLEBER TREJO ([id number])WBC (U) [#/Vol]0 TO 2 /HPF(0-5)[facility] Work Phone: Comment on above:Note: Responsible Observer: KLEBER TREJO ([id number])Laboratory - Specimen informationOrdered By: Vahid Nagy on 73-32-1700Oapox (U)N/ANormalWestwood Lodge Hospital Work Phone: No Panel InformationOrdered By: Vahid Nagy on 97-36-8073Fbo Values NormalN/AAbnormal(NORMAL)[facility] Work Phone: [phone]/A(POS/NEG)[facility] Work Phone: BARN/A(POS/NEG)[facility] Work Phone: BUPN/A(POS/NEG)[facility] Work Phone: BZON/A(POS/NEG)[facility] Work Phone: COCN/A(POS/NEG)[facility] Work Phone: MDMAN/A(POS/NEG)[facility] Work Phone: METN/A(POS/NEG)[facility] Work Phone: [phone]/A(POS/NEG)[facility] Work Phone: [phone]/A(POS/NEG)[facility] Work Phone: OXYN/A(POS/NEG)[facility] Work Phone: PCPN/A(POS/NEG)[facility] Work Phone: Sent to LabN/A(Yes/No)[facility] Work Phone: Staff Members Mwjrakm5Opoqcs(1 or 2)[facility] Work Phone: THCN/A(POS/NEG)[facility] Work Phone: [phone] TempN/ANormal(90-100)[facility] Work Phone: [phone] - Chemistry and Chemistry - challenge Ordered By: Vahid Nagy on 50-46-2818Psrpvzh [Mass/Vol]118 mg/dLAbnormal (80-100)[facility] Work Phone: Laboratory - Hematology and Cell countsOrdered By: Vahid Nagy on 73-71-2094AvX9r (Bld) [Mass fraction]6.7 %Normal(<=7.0)[facility] Work Phone: Laboratory - Specimen informationOrdered By: Vahid Nagy on 64-10-5376Pmkkj (U)NNormalWestwood Lodge Hospital Work Phone: No Panel InformationOrdered By: Vahid Nagy on 10-79-3025RIXUZekpxd(POS/NEG)[facility] Work Phone: [phone](POS/NEG)[facility] Work Phone: BUPNNormal(POS/NEG)[facility] Work Phone: [phone](POS/NEG)[facility] Work Phone: [phone](POS/NEG)[facility] Work Phone: [phone](POS/NEG)[facility] Work Phone: [phone](POS/NEG)[facility] Work Phone: [phone](POS/NEG)[facility] Work Phone: [phone](POS/NEG)[facility] Work Phone: [phone](POS/NEG)[facility] Work Phone: [phone](POS/NEG)[facility] Work Phone: [phone] to LabNONormal(Yes/No)[facility] Work Phone: [phone] Members Iqjpwcn2Hsampg(1 or 2)[facility] Work Phone: [phone](POS/NEG)[facility] Work Phone: [phone] TempNNormal(90-100)[facility] Work Phone: Metabolic Panelon 13-66-1101Aybuxlntbn A1c/Hemoglobin.total mass fraction (Bld)6.60 %Invalid Interpretation Code< 7 [facility] Glucose mass cpwm150.0 mg/dLInvalid Interpretation Code [facility] Hemoglobin A1c/Hemoglobin.total mass fraction (Bld)6.60 %< 7[facility] Glucose mass qgyu675.0 mg/dLWestwood Lodge Hospital aEROBIC CULTUREon 15-00-9538SEKVVPF CULTURESPECIMEN NUMBER: [id number] Laboratories IncComment on above:Result Comment: AEROBIC CULTURE REPORT STATUS: FINAL SITE/TYPE: ABDOMEN STAIN RESULT(S): SMALL AMOUNT PROTEINACEOUS MATERIAL SMALL AMOUNT CELLULAR DEBRIS RARE NEUTROPHILS (WBCS) LARGE AMOUNT GRAM POSITIVE RODS CULTURE RESULT(S): MODERATE AMOUNT DIPHTHEROIDS(Corynebacterium species) PLEASE NOTE: If isolate is clinically significant,empiric therapy is indicated,as there are no NCCLS approved guideli claire for in vitro sensitivity testing of this organism. Other organisms are present that may not be related to infection and may represent colonization or probable contamination. Correlation of the culture with the direct Gram stain does not indicate these isolates to be potential pathogens. If additional identification is necessary,please contact the Microbiology laboratory.[facility] [address] [place], [place] [address]Laboratory Director: Albin Snyder M.D.CLIA No. [id number] CAP Accreditation No. [id number] Panelon 96-64-0814Gotlqgd mass conc98.0 mg/dLInvalid Interpretation CodeWestwood Lodge Hospital Glucose mass conc98.0 mg/dLWestwood Lodge Hospital Metabolic Panelon 91-21-9079Dwyifqe mass mxfe193.0 mg/dLInvalid Interpretation CodeWestwood Lodge Hospital Glucose mass nxws918.0 mg/dLWestwood Lodge Hospital Metabolic Panelon 52-13-0815Cqmvdki mass tvqg724.0 mg/dLInvalid Interpretation CodeWestwood Lodge Hospital Glucose mass mhui462.0 mg/dLWestwood Lodge Hospital Metabolic Panelon 85-73-4363Zevjoxqlbl A1c/Hemoglobin.total mass fraction (Bld)6.20 %Invalid Interpretation Code< 7 [facility] Glucose mass mbpf539.0 mg/dLInvalid Interpretation Code [facility] Hemoglobin A1c/Hemoglobin.total mass fraction (Bld)6.20 %< 7[facility] Glucose mass jfxp310.0 mg/dLWestwood Lodge Hospital otheron 22948=UgqaegwnodGcoaqml Interpretation CodeWestwood Lodge Hospital 0-N/AInvalid Interpretation [facility] 0Invalid Interpretation [facility] managing chronic illnessInvalid Interpretation [facility] Risk Level 2= 4-6Invalid Interpretation [facility] 5Invalid Interpretation [facility] 2758=IkFcgamqw Interpretation [facility] 889899=ZtnZpqmqyw Interpretation [facility] 0=N/AInvalid Interpretation [facility] Risk Level 2= 4-6[facility] 5[facility] 0[facility] 005774=XxNxldky [facility] managing chronic illnessHealth [facility] 164921=VpoHjwopt [facility] 167324=DmslplobvtTtfdjz [facility] 0-N/A[facility] 0=N/A[facility] COMPREHENSIVE METABOLIC PANEL WITH GFRon 12-16-2016 Alanine aminotransferase (ALT)11 U/LNormal5-59Pathology Laboratories IncAlbumin 3.9 g/dLNormal3.2-5.3Pathology Laboratories IncALK PHOS75 IU/HVzzzwc55-189 Path[facility] Laboratories IncAnion gap20 mmol/LNormalPathology Laboratories Inc AST-SGOT11 IU/LXpmzbp75-15Rhzatjrfl Laboratories IncBilirubin (direct)0.4 mg/dL Normal0.2-1.3[facility] IncCalcium9.3 mg/dLNormal8.7-10.8[facility] MqzXuwvkgkq947 mmol/VDfwmow51-363Wqcjhhixw Laboratories JfoZZ948 mmol/RLgsyvc38-03Kluvrutkw Laboratories IncCreatinine0.5 mg/dLNormal0.5-1.3 [facility] InceGFR (black)154 mL/min/{1.73_m2}Normal>60[facility] InceGFR (non-black)127 mL/min/{1.73_m2}Normal>60Pathology Laboratories IncComment on above:Result Comment: * ESTIMATED GFR (eGFR) IS CALCULATED FROM SERUM CREATININE AND OTHER VARIABLES AFFECTING ITS VALUE (AGE, RACE, AND SEX). * FOR PATIENT WITH ESTABLISHED CHRONIC KIDNEY DISEASE, THE CHART BELOW DEFINES STAGES WITH eGFR VALUES. Stage 1 90 mL/min/1.73 m2 or greater Stage 2 60-89 mL/min/1.73 m2 Stage 3 30-59 mL/min/1.73 m2 Stage 4 15-29 mL/min/1.73 m2 Stage 5 14 mL/min/1.73 m2 or lessGlucose mass conc99 mg/dLNormal 70-100Pathology Laboratories IncComment on above:Result Comment: DIAGNOSTIC THRESHOLDS FOR DIABETES AND IMPAIRED FASTING GLUCOSE (IFG) FASTING PLASMA GLUCOSE NORMAL <100 MG/DL IFG 100-125 MG/DL DIABETES >/= 126 MG/DLPotassium molar conc4.7 mmol/LNormal3.5-5.4Pathology Laboratories IncProtein6.7 g/dLNormal 5.8-8.0[facility] PrzZgwbzo551 mmol/SIygoms325-700Tszuondlc Laboratories IncUrea tsnemzij19 mg/jGPwucdh36-87Mvxwiphww Laboratories IncLIPID PANEL (INCLUDES CALCULATED LDL)on 59-97-8823Wlvdxbkvvpn041 mg/dLHigh<200 [facility] IncCholesterol to HDL Ratio6.2 {ratio}High<5Pathology Laboratories IncHDL-CHOL38 mg/rtYdr10-63Phbpowedf Laboratories IncComment on above:Result Comment: HDL <40 mg/dL IS A RISK FACTOR FOR CORONARY HEART DISEASE. HDL >60 mg/dL IS ANEGATIVE RISK FACTOR FOR CORONARY HEART DISEASE.LDL to HDL Ratio3.7High<3.5Pathology Laboratories IncLDL-CHOL, UMGTHLBXUM491 mg/dLHigh<130 Path[facility] Laboratories IncComment on above:Result Comment: LDL CHOLESTEROL REFERENCE RANGE FOR 0-19 YEARS: DESIRABLE <110 mg/dL, FFCSIMVXWT402-138, HIGH RISK >130 LDL CHOLESTEROL REFERENCE RANGE FOR ADULTS: DESIRABLE <100 mg/dL, BORD DAILY 130-159, HIGH RISK >160REFERENCE RANGES REVISED 09/09/15 ACCORDING TO NCEP GUIDELINESUttpldrudewt167 mg/dLHigh<150Pathology Laboratories IncVLDL- CHOL, WQEXJNUMDW43 mg/dLHigh<30Path[facility] IncCBC W/AUTO DIFFon 12-15-2016% QYJRCXRLDUM82.3 %NormalPathology Laboratories IncABS BASOPHILS0.1 K/ulNormal0.0-0.1Pathology Laboratories IncABS NEUTROPHILS6.1 K/ulNormal1.3-9.1 [facility] IncBasophils/100 WBC Auto (Bld)0.8 %NormalPathology Laboratories IncComment on above:Result Comment: MANUAL DIFFERENTIAL PERFORMED Eosinophils0.5 10*3/uLHigh0.1-0.4Path[facility] Laboratories IncEosinophils/100 leukocytes5.2 %NormalPathology Laboratories IncErythrocyte distribution width Auto Ratio (RBC)16.9 %High10.8-14.8[facility] Laboratories IncErythrocytes (RBC) 5.29 10*6/uLNormal4.00-5.50[facility] IncHematocrit (HCT)47.1 % Xodhlh64.0-48.0Pathology Laboratories IncHemoglobin mass conc (Bld)15.2 g/dL Qssnhc43.0-16.0[facility] Laboratories IncLymphocytes1.9 10*3/uLNormal0.8-5.2 [facility] IncLymphocytes/100 hgcswitqva68.6 %NormalPathology Laboratories GjxFLQ97.7 qzKsvvgn26.0-34.0[facility] IncMCHC mass conc (RBC)32.3 g/cTRnqsvi29.0-36.0[facility] VjlXND32.0 fLNormal 80.-100.[facility] Laboratories IncMonocytes0.5 10*3/uLNormal0.1-0.9[facility] IncMonocytes/100 leukocytes5.7 %NormalPathology Laboratories Inc Iwrxaagts779 10*3/zDZsirpp238.-450.Pathology Laboratories IncWBC (Leukocytes)9.0 10*3/uLNormal3.7-10.8[facility] IncHEPATITIS C ABon 12-15-2016 HEPATITIS C ABNegativeNormalNEGATIVEPathology Laboratories IncComment on above: Result Comment: [facility] [address] [place], [place] [address]Laboratory Director: Dwight Menezes M.D.CLIA No. [id number] CAP Accreditation [place]. [id number] WITH T4 REFLEXon 24-33-6658Rsrtfim stimulating hormone (TSH)1.180 uIU/mLNormal0.40-4.40Pathology Laboratories IncCardiacon 98-28-5290Xdxutwiidyq876 mg/dLInvalid Interpretation Code<200[facility] HDL Bpabuayrwtc82.0 mg/xK64-50CihmsdWestwood Lodge Hospital 6114Vwhrjqiijuiw052.0 mg/dL<150[facility] Hematologyon 53-85-9295Fjggocnqr #/vol (Bld)0.8 %[facility] Basophils Auto #/vol (Bld)0.8 %Invalid Interpretation CodeWestwood Lodge Hospital Basophils/100 WBC (Bld)0.1 K/uL0.0-0.1[facility] Basophils/100 WBC Auto (Bld)0.1 K/uLInvalid Interpretation Code0.0-0.1[facility] Eosinophils/100 leukocytes5.2 %Invalid Interpretation CodeWestwood Lodge Hospital Eosinophils/100 WBC (Bld)5.2 %[facility] Erythrocyte distribution width Auto Ratio (RBC)16.9 % Invalid Interpretation Code10.8-14.8[facility] Erythrocytes (RBC)5.290 10*6/uLInvalid Interpretation Code4.00-5.50[facility] Hematocrit (HCT)47.10 %Invalid Interpretation Code 36.0-48.0[facility] Hematocrit Volume Fraction (Bld)47.10 %36.0-48.0[facility] Hemoglobin A1c/Hemoglobin.total mass fraction (Bld)0.5 10*3/uL0.1-0.4[facility] Hemoglobin A1c/Hemoglobin.total mass fraction (Bld)1.9 10*3/uL0.8-5.2[facility] Hemoglobin A1c/Hemoglobin.total mass fraction (Bld)0.5 10*3/uL0.1-0.9[facility] Hemoglobin A1c/Hemoglobin.total mass fraction (Bld)6.1 10*3/uL1.3-9.1[facility] Hemoglobin S mjgacqpe92.2Invalid Interpretation Code 12.0-16.0[facility] Lipoprotein a mass conc0.5 10*3/uLInvalid Interpretation Code0.1-0.4[facility] Lipoprotein a mass conc1.9 10*3/uLInvalid Interpretation Code0.8-5.2[facility] Lipoprotein a mass conc0.5 10*3/uLInvalid Interpretation Code0.1-0.9[facility] Lipoprotein a mass conc6.1 10*3/uLInvalid Interpretation Code1.3-9.1[facility] Lymphocytes/100 xkexuvumdi33.6 %Invalid Interpretation CodeHealth [facility] Lymphocytes/100 WBC (Bld)20.6 %[facility] MCH28.7 pgInvalid Interpretation Code27.0-34.0[facility] MCH Entitic mass (RBC)28.7 pg27.0-34.0[facility] MCHC mass conc (RBC)32.3 g/dLInvalid Interpretation Code31.0-36.0[facility] MCV89.0 fLInvalid Interpretation Code80.-100.[facility] MCV Entitic volume (RBC)89.0 fL80.-100.[facility] Monocytes/100 leukocytes5.7 %Invalid Interpretation CodeWestwood Lodge Hospital [employer] Monocytes/100 WBC (Bld)5.7 %[facility] Neutrophils/100 oijjkwmenk83.3 %Invalid Interpretation CodeWestwood Lodge Hospital Neutrophils/100 WBC (Bld)67.3 %[facility] RBC #/vol (Bld)5.290 10*6/uL4.00-5.50[facility] WBC (Leukocytes)9.0 10*3/uLInvalid Interpretation Code 3.7-10.8[facility] Imm/Pathon 04-07-2178Tsllaajbn C antibody presence NegativeNEGATIVEWestwood Lodge Hospital Metabolic Panelon 77-30-0832Iuoeazsxel A1c/Hemoglobin.total mass fraction (Bld)6.70 %Invalid Interpretation Code< 7 [facility] [employer] Glucose mass juuz353.0 mg/dLInvalid Interpretation Code [facility] Hemoglobin A1c/Hemoglobin.total mass fraction (Bld)6.70 %< 7[facility] Alanine aminotransferase (ALT)11.0 U/L5-59[facility] Albumin3.90 g/dL3.2-5.3[facility] Alkaline phosphatase (ALP)75.0 U/X48-423Tppdyu [facility] Anion gap20 mmol/LInvalid Interpretation [facility] Anion gap molar conc20 mmol/LHealth [facility] Aspartate aminotransferase (AST)11.0 U/N20-06Meohfa [facility] Calcium9.30 mg/dL8.7-10.8[facility] 0780Imypfahv100 mmol/B57-506Qwmyjm [facility] CO222 mmol/LInvalid Interpretation Geoh60-05Nmruti [facility] 8120Vssyaaeias6.50 mg/dL0.5-1.3[facility] eGFR (non-black)127 mL/min/{1.73_m2}Invalid Interpretation Code>60[facility] eGFR (non-black)154 mL/min/{1.73_m2}Invalid Interpretation Code>60[facility] Glucose mass conc99 mg/kM10-134Rqdsrn [facility] Potassium molar conc4.70 mmol/L3.5-5.4[facility] Protein6.7 g/dL5.8-8.0[facility] Sodium142 mmol/X337-750Pwpoyl [facility] Urea brrafnls15.0 mg/dR68-49Hiwrhv [facility] Glucose mass ktny321.0 mg/dLHealth [facility] Otheron 46-49-1510GYVQhqcopz Interpretation [facility] WNLHealth [facility] Work Phone: [phone]=EnJqqcrkw Interpretation [facility] Risk Level 3=7-9Invalid Interpretation [facility] Work Phone: [phone]=QhkDonzdfa Interpretation [facility] 0Invalid Interpretation [facility] 364592=GafEcxuuzv Interpretation [facility] 0-N/AInvalid Interpretation [facility] 8Invalid Interpretation [facility] 0=N/AInvalid Interpretation [facility] 169143=TelmnoalsqIdlazak Interpretation [facility] Bilirubin Ql (U)0.40.2-1.3[facility] Cholesterol crystals Infrared spectroscopy Ql (Stone) 236 mg/dL<200[facility] Cholesterol to HDL Ratio6.2 {ratio}<5[facility] Erythrocyte distribution width Ratio (RBC)16.9 % 10.8-14.8[facility] Hemoglobin S Ql (Bld)15.212.0-16.0[facility] LDL to HDL Ratio3.7Invalid Interpretation Code<3.5 [facility] Lipoprotein.beta/Lipoprotein.alpha mass ratio3.7<3.5 [facility] MCHC mass conc (RBC)32.3 g/dL31.0-36.0[facility] 040-3768PqgP-WM SerPl-yOhn068.0 mg/dL<130[facility] 547-8548DvyQ-GN SerPl-mCnc58.0 mg/dL<30[facility] WBC LM Ql (Sput)9.03.7-10.8[facility] 164150.-450.[facility] 6.7Invalid Interpretation Code5.8-8.0[facility] 5913-4919832>60[facility] 127>60[facility] 5112-71Yygalq [facility] Work Phone: [phone] [facility] Work Phone: [phone]=NsjfpxcljlQenkzg [facility] 8=UdQjkvea [facility] 5=LzfUwcdxb [facility] 8-M/A[facility] Work Phone: [phone]=KkgTsypne [facility] Work Phone: [phone]=L/AHealth [facility] Risk Level 3=7-9[facility] 8[facility] Thyroidon 39-03-9313Qtzfbta stimulating hormone (TSH) 1.180 uIU/mL0.40-4.40[facility] Cardiacon 38-88-4319Pbsvrfcldnw539 mg/dLInvalid Interpretation Code<200[facility] HDL Ydzybswvzdn77.0 mg/rX37-58Guzyzz [facility] 4054Ltttstzocvbt238.0 mg/dL<150[facility] Hematologyon 26-74-4245Nvdzrmdsu #/vol (Bld)1.1 %0.-1. [facility] Basophils Auto #/vol (Bld)1.1 %Invalid Interpretation Code0.-1.[facility] Basophils/100 WBC (Bld)0.1 K/uL0.0-0.1[facility] Basophils/100 WBC Auto (Bld)0.1 K/uLInvalid Interpretation Code0.0-0.1H[facility] Eosinophils/100 leukocytes3.7 %Invalid Interpretation Code1.-4.[facility] Eosinophils/100 WBC (Bld)3.7 %1.-4.[facility] Erythrocyte distribution width Auto Ratio (RBC)15.3 % Invalid Interpretation Code10.8-14.8HPaul [facility] [employer] Erythrocytes (RBC)5.050 10*6/uLInvalid Interpretation Code4.00-5.50[facility] Hematocrit (HCT)47.70 %Invalid Interpretation Code 36.0-48.0[facility] Hematocrit Volume Fraction (Bld)47.70 %36.0-48.0[facility] Hemoglobin A1c/Hemoglobin.total mass fraction (Bld)0.4 10*3/uL0.1-0.4H[facility] Hemoglobin A1c/Hemoglobin.total mass fraction (Bld)2.4 10*3/uL0.8-5.2[facility] Hemoglobin A1c/Hemoglobin.total mass fraction (Bld)0.4 10*3/uL0.1-0.9[facility] Hemoglobin A1c/Hemoglobin.total mass fraction (Bld)6.6 10*3/uL1.3-9.1[facility] Hemoglobin S kwwvfoms60.1Invalid Interpretation Code 12.0-16.0[facility] Lipoprotein a mass conc0.4 10*3/uLInvalid Interpretation Code0.1-0.4[facility] Lipoprotein a mass conc2.4 10*3/uLInvalid Interpretation Code0.8-5.2[facility] Lipoprotein a mass conc0.4 10*3/uLInvalid Interpretation Code0.1-0.9[facility] Lipoprotein a mass conc6.6 10*3/uLInvalid Interpretation Code1.3-9.1[facility] Lymphocytes/100 icaxdsxggb28.4 %Invalid Interpretation Anfk75-35Vnlwpb [facility] Lymphocytes/100 WBC (Bld)24.4 %16-48[facility] MCH29.9 pgInvalid Interpretation Code27.0-34.0[facility] MCH Entitic mass (RBC)29.9 pg27.0-34.0[facility] MCHC mass conc (RBC)31.7 g/dLInvalid Interpretation Code31.0-36.0[facility] MCV94.4 fLInvalid Interpretation Code80.-100.[facility] MCV Entitic volume (RBC)94.4 fL80.-100.[facility] Monocytes/100 leukocytes3.8 %Invalid Interpretation Code1.-8.[facility] Monocytes/100 WBC (Bld)3.8 %1.-8.[facility] Neutrophils/100 lismratfyy27.0 %Invalid Interpretation Ybuk20-07Gnnrhz [facility] Neutrophils/100 WBC (Bld)67.0 %45-75[facility] RBC #/vol (Bld)5.050 10*6/uL4.00-5.50[facility] WBC (Leukocytes)9.9 10*3/uLInvalid Interpretation Code 3.7-10.8[facility] Metabolic Panelon 29-24-3955Vosctky aminotransferase (ALT)17.0 U/L5-59[facility] Albumin4.30 g/dL3.2-5.3H[facility] Alkaline phosphatase (ALP)92.0 U/T84-235Xdzera [facility] Anion gap11 mmol/LInvalid Interpretation CodeHealth [facility] Anion gap molar conc11 mmol/LHealUC Health Aspartate aminotransferase (AST)16.0 U/D02-34Pnobmz [facility] Calcium9.50 mg/dL8.7-10.8[facility] 8934Barkhxip310 mmol/O63-016Ieofnr [facility] CO227 mmol/LInvalid Interpretation Tlto84-20Vmqchf [facility] 7173Vywiflevmo7.50 mg/dL0.5-1.3[facility] eGFR (non-black)155 mL/min/{1.73_m2}Invalid Interpretation Code>60[facility] eGFR (non-black)128 mL/min/{1.73_m2}Invalid Interpretation Code>60[facility] Glucose mass conc94 mg/xP91-528Eqcznz [facility] Potassium molar conc4.70 mmol/L3.5-5.4[facility] Protein7.0 g/dL5.8-8.0[facility] Sodium136 mmol/X191-044Otrxnk [facility] Urea rcjuduus16.0 mg/qR82-68Cgghqu [facility] Glucose mass conc78.0 mg/dLHealth [facility] Glucose mass conc78.0 mg/dLInvalid Interpretation Code [facility] Otheron [id number] Ql (U)0.30.2-1.3[facility] Cholesterol crystals Infrared spectroscopy Ql (Stone) 224 mg/dL<200[facility] Cholesterol to HDL Ratio6.1 {ratio}<5[facility] Erythrocyte distribution width Ratio (RBC)15.3 % 10.8-14.8[facility] Hemoglobin S Ql (Bld)15.112.0-16.0[facility] LDL to HDL Ratio3.6Invalid Interpretation Code<3.5 [facility] Lipoprotein.beta/Lipoprotein.alpha mass ratio3.6<3.5 [facility] MCHC mass conc (RBC)31.7 g/dL31.0-36.0[facility] p572-4430SeiO-TM SerPl-cCkt464.0 mg/dL<130[facility] 046-0222WjtZ-NK SerPl-mCnc53.0 mg/dL<30[facility] WBC LM Ql (Sput)9.93.7-10.8[facility] 203150.-450.[facility] 7.0Invalid Interpretation Code5.8-8.0[facility] 128>60[facility] 155>60[facility] [id number] [facility] Thyroidon 20-18-7306Xkaobzl stimulating hormone (TSH) 0.1650 uIU/mL0.40-4.40[facility] Thyroxine (T4) mufv4414.0 ng/dL4.5-12.5[facility] Hematologyon 83-01-1534jFUTIVZ except trace of blood, small leukocytesInvalid Interpretation CodeHealth [facility] Modulus Video Metabolic Panelon 51-72-8144Buvqzljaev A1c/Hemoglobin.total mass fraction (Bld)9.30 %< 7[facility] Glucose mass fxev784.0 mg/dLHealth [facility] Hemoglobin A1c/Hemoglobin.total mass fraction (Bld)9.30 %Invalid Interpretation Code< 7[facility] Glucose mass mzsa983.0 mg/dLInvalid Interpretation Code [facility] otheron [id number] [facility] WNL[facility] 50Invalid Interpretation CodeHealth [facility] Urinalysis specialist review Interp Emmett (Unsp spec)WNL except trace of blood, small leukocytesHealth [facility] albumin mass conc (U)50.0 mg/dLHealth [facility] NegativeHealth [facility] WNLInvalid Interpretation CodeHealth [facility] Urinalysis specialist review Interp Emmett (Unsp spec)WNL except trace of blood, small leukocytesInvalid Interpretation CodeHealth [facility] albumin Ur-mCnc50.0 mg/dLInvalid Interpretation Code [facility] NegativeInvalid Interpretation CodeHealth [facility] Vital Signs Date TimeVital SignValuePerforming XyjioweizQukyfjqt77-14-6216 15:06-0400Body aplkkzhysna60.11 [degF]Nat Reynolds MD Work Phone: [facility] Hnrojv42-39-9542 15:06-0400Diastolic blood yllezmin25 mm[Hg]Nat Reynolds MD Work Phone: [facility] Wfzcgn70-26-9675 15:06-0400Heart rate 77 /minNat Reynolds MD Work Phone: [facility] Uvqtvl86-91-8286 15:06-0400 Respiratory rate20 /minNat Reynolds MD Work Phone: [facility] Pafbfg01-93-1900 15:06-5377HeN4% (BldA) [Mass fraction]96 %Nat Reynolds MD Work Phone: [facility]10-03-2025 15:06-0400Systolic blood lbokvnuh32 mm[Hg]Nat Reynolds MD Work Phone: [facility]10-01-2025 20:53-0400Body .9 cmNat Reynolds MD Work Phone: [facility]10-01-2025 20:53-0400Body mass index (BMI) [Ratio]21.97 kg/p2AtvmpduNat Reynolds MD Work Phone: [facility]10-01-2025 20:53-0400Body yeyiln00.75 kgNat Reynolds MD Work Phone: [facility]08-21-2025 17:00-0400Diastolic blood eamvnofs14 mm[Hg]Osmar Rodriguez MD Work Phone: [facility]08-21-2025 17:00-0400Systolic blood budsnezi853 mm[Hg]Osmar Rodriguez MD Work Phone: [facility]08-21-2025 16:45-0400Heart rate73 /Emma Rodriguez MD Work Phone: [facility]08-21-2025 16:45-5791BkM5% (BldA) [Mass fraction]90 %Osmar Rodriguez MD Work Phone: [facility]08-21-2025 14:15-0400 Respiratory rate18 /Emma Rodriguez MD Work Phone: [facility]08-21-2025 12:11-0400Body yghwblhksvk12.5 [degF]Osmar Rodriguez MD Work Phone: [facility]05-19-2025 10:29-0400 Respiratory rate15 /Emma Rodriguez MD Work Phone: [facility]05-19-2025 07:27-9936PaJ4% (BldA) [Mass fraction]95 %Osmar Rodriguez MD Work Phone: [facility]05-19-2025 06:47-0400Body zbbrckpculk87 [degF]Osmar Rodriguez MD Work Phone: [facility]05-19-2025 06:47-0400Diastolic blood mm[Hg]Osmar Rodriguez MD Work Phone: [facility]05-19-2025 06:47-0400Heart rate73 /Emma Rodriguez MD Work Phone: [facility]05-19-2025 06:47-0400Systolic blood mm[Hg]Osmar Rodriguez MD Work Phone: [facility]05-19-2025 01:26-0400Body mass index (BMI) [Ratio]23.47 kg/y5FmloaxOsmar Rodriguez MD Work Phone: [facility]05-19-2025 01:26-0400Body .34 kgOsmar Rodriguez MD Work Phone: [facility]05-15-2025 07:22-0400Body xgiukp933.9 Nora Rodriguez MD Work Phone: [facility]05-12-2025 18:30-0400Body pdypoujcjwz95.5 [degF]Osmar Rodriguez MD Work Phone: [facility]05-12-2025 18:30-0400Diastolic blood lltuqimw64 mm[Hg]Osmar Rodriguez MD Work Phone: [facility]05-12-2025 18:30-0400Heart rate78 /Emma Rodriguez MD Work Phone: [facility]05-12-2025 18:30-0400 Respiratory rate18 /Emma Rodriguez MD Work Phone: [facility]05-12-2025 18:30-2272UpA4% (BldA) [Mass fraction]95 %Osmar Rodriguez MD Work Phone: [facility]05-12-2025 18:30-0400Systolic blood mm[Hg]Osmar Rodriguez MD Work Phone: [facility]05-12-2025 05:44-0400Body mass index (BMI) [Ratio]24.67 kg/f8TolxexOsmar Rodriguez MD Work Phone: [facility]05-12-2025 05:44-0400Body dfeutr72.19 kgOsmar Rodriguez MD Work Phone: [facility]05-09-2025 06:44-0400Body fkachm395.9 cmSmaria elena Rodriguez MD Work Phone: [facility]10-24-2024 16:00-0400Inhaled oxygen flow rate2 L/KarenO Carlo Grimaldo Work Phone: [facility]10-24-2024 16:00-0400 SaO2% (BldA) [Mass fraction]95 %DO Carlo Grimaldo Work Phone: [facility]10-24-2024 13:59-0400 Diastolic blood luiftpwi53 mm[Hg]DO Carlo Grimaldo Work Phone: [facility]10-24-2024 13:59-0400 Heart rate70 /minDO Carlo Grimaldo Work Phone: [facility]10-24-2024 13:59-0400 Respiratory rate18 /minDO Carlo Grimaldo Work Phone: [facility]10-24-2024 13:59-0400 Systolic blood mazsauwm303 mm[Hg]DO Carlo Grimaldo Work Phone: [facility]10-24-2024 07:58-0400 Body ompeyvbzuic97.8 [degF]DO Carlo Grimaldo Work Phone: [facility]10-24-2024 05:30-0400 Body embblm72 kgDO Carlo Grimaldo Work Phone: [phone]10-23-2024 15:20-0400 Body xehaav715.18 cmDO Carlo Grimaldo Work Phone: [phone]-[facility]10-20-2024 21:30-0400 Diastolic blood cfdesobi94 mm[Hg]DO Carlo Grimaldo Work Phone: [phone]10-20-2024 21:30-0400 Heart rate67 /minDO Carlo Grimaldo Work Phone: [phone]10-20-2024 21:30-0400 Inhaled oxygen flow rate4 L/minDO Carlo Grimaldo Work Phone: [phone]([phone] [place], [place] 2561710-20-2024 21:30-0400 Respiratory rate20 /minDO Carlo Grimaldo Work Phone: [phone]10-20-2024 21:30-0400 SaO2% (BldA) [Mass fraction]94 %DO Carlo Griamldo Work Phone: [facility]10-20-2024 21:30-0400 Systolic blood tawfxlcv376 mm[Hg]DO Carlo Grimaldo Work Phone: [facility]10-20-2024 16:43-0400 Body .94 cmDO Carlo Grimaldo Work Phone: [facility]10-20-2024 16:43-0400 Body spsizf58.4 kgDO Carlo Grimaldo Work Phone: [facility]10-20-2024 16:41-0400 Body lcpgmuifgfm73.2 [degF]DO Carlo Grimaldo Work Phone: [facility]04-30-2023 12:10-0400 Body gbyvhb837.9 Nora Rodriguez MD Work Phone: [facility]04-30-2023 12:10-0400Body mass index (BMI) [Ratio]30.23 kg/b9NzdrwgOsmar Rodriguez MD Work Phone: [facility]04-30-2023 12:10-0400Body iyqwuoeevcb00.9 [degF]Osmar Rodriguez MD Work Phone: [facility]04-30-2023 12:10-0400Body cusfud41.58 kgOsmar Rodriguez MD Work Phone: [facility]04-30-2023 12:10-0400Diastolic blood ociyuloz24 mm[Hg]Osmar Rodriguez MD Work Phone: [facility]04-30-2023 12:10-0400Heart rate60 /Emma Rodriguez MD Work Phone: [facility]04-30-2023 12:10-0400 Respiratory rate20 /Emma Rodriguez MD Work Phone: [facility]04-30-2023 12:10-9811TwY4% (BldA) [Mass fraction]91 %Osmar Rodriguez MD Work Phone: [facility]04-30-2023 12:10-0400Systolic blood uysmhifv201 mm[Hg]Osmar Rodriguez MD Work Phone: [facility]04-22-2023 10:16-0400Body oofwtdrgypz86.9 [degF]Osmar Rodriguez MD Work Phone: [facility]04-22-2023 10:16-0400Diastolic blood elpoprlx02 mm[Hg]Osmar Rodriguez MD Work Phone: [facility]04-22-2023 10:16-0400Heart rate79 /Emma Rodriguez MD Work Phone: [facility]04-22-2023 10:16-0400 Respiratory rate20 /Emma Rodriguez MD Work Phone: [facility]04-22-2023 10:16-0159PlH5% (BldA) [Mass fraction]91 %Osmar Rodriguez MD Work Phone: [facility]04-22-2023 10:16-0400Systolic blood mm[Hg]Osmar Rodriguez MD Work Phone: [facility]01-27-2023 13:55-0500Body .9 cmCorrine Chery [employer] Work Phone: [phone] [place], [place] 5625301-27-2023 13:55-0500Body mass index (BMI) [Ratio]25.51 kg/z1BexufonuCorrine De La Cruzor [employer] Work Phone: [phone])[address] [place], [place] 5625301-27-2023 13:55-0500Body aibskw28.24 kgCorrine De La Cruzor [employer] Work Phone: [phone] [place], [place] 5625301-27-2023 13:55-0500 Diastolic blood dycdyhen42 mm[Hg]Corrine De La Cruzmeeta INSPECT[employer] ADMINIST[employer] Work Phone: [phone] [place], [place] 5625301-27-2023 13:55-0500Heart rate70 /minCorrine Chery [employer] Work Phone: [phone] [place], [place] 5625301-27-2023 13:55-0500Systolic blood wlzujgwn141 mm[Hg]Corrine De La Cruzmeeta [employer] ADMINIST[employer] Work Phone: [phone] [place], [place] 5625304-20-2022 15:30-0400 Diastolic blood iccthodu46 mm[Hg]Pedrito Pickett MD Work Phone: [facility]04-20-2022 15:30-0400Heart rate69 /Derick Pickett MD Work Phone: [facility]04-20-2022 15:30-0400 Respiratory rate24 /minSmicah Pickett MD Work Phone: [phone] [place], [place] 1174004-20-2022 15:30-0746GdK5% (BldA) [Mass fraction]93 %Pedrito Pickett MD Work Phone: [phone])[address] [place], [place] 1174004-20-2022 15:30-0400Systolic blood odokjpgz866 mm[Hg]Pedrito Pickett MD Work Phone: [phone])[address] [place], [place] 1174004-20-2022 12:46-0400Body axtbmu422.9 cmSmicah Pickett MD Work Phone: [phone] [place], [place] 1174004-20-2022 12:46-0400Body mass index (BMI) [Ratio]22.67 kg/f2MutmouPedrito Pickett MD Work Phone: [phone])[address] [place], [place] 1174004-20-2022 12:46-0400Body pjyuqglppwh69.2 [degF]Pedrito Pickett MD Work Phone: [phone] [place], [place] 1174004-20-2022 12:46-0400Body .43 kgPedrito Pickett MD Work Phone: [phone] [place], [place] 1174012-19-2021 13:47-6671PoQ0% (BldA) [Mass fraction]94 %Osmar Rodriguez MD Work Phone: [facility]ise21-30-3143 12:02-0500Diastolic blood yteyvpkc91 mm[Hg]Osmar Rodriguez MD Work Phone: [facility]burgJelhjx82-55-3256 12:02-0500Systolic blood bzgflihe477 mm[Hg]Osmar Rodriguez MD Work Phone: [facility]burgRtvyxi21-37-7863 09:16-0500Heart rate70 /min Osmar Rodriguez MD Work Phone: [facility]burgGmhpol83-21-2018 08:33-0500Body mass index (BMI) [Ratio]30.55 kg/i9Varmemdiego Rodriguez MD Work Phone: [facility] Rdbotz38-36-4415 08:33-0500Body ktuehf99.35 kg Osmar Rodriguez MD Work Phone: [facility]burgUsgrty62-82-5879 06:01-0500Respiratory rate18 /minSmaria elena Rodriguez MD Work Phone: [facility] Qzsopy70-16-8899 13:56-0500Body rwipxkdrvza92.1 [degF]Osmar Rodriguez MD Work Phone: [facility] Rufexc34-05-0355 11:51-0500Diastolic blood osmcyciv84 mm[Hg][facility] Xuiqzp68-04-1312 11:51-0500Heart rate56 /minD[facility] [employer] 02-09-2021 11:51-0500Respiratory rate18 /minD[facility] Gufobu27-48-8244 11:51-0500 SaO2% (BldA) [Mass fraction]96 %[facility] Jwwpzz36-36-8761 11:51-0500Systolic blood suxkltkl224 mm[Hg][facility] Qxjfcn24-27-9006 11:09-0500Body aninnv334.9 cmD[facility] Pkhgdv58-31-5475 11:09-0500Body mass index (BMI) [Ratio]30.23 kg/x2Rmiyh [employer] 02-09-2021 11:09-0500Body omxsmutloai13.1 [degF][facility] Yauzdn33-59-5211 11:09-0500Body vyttcu55.58 kgD[facility] Qirvzm52-41-2769 15:19-0400Diastolic blood eeukbyju45 mm[Hg]Albert Andes DO Work Phone: [facility] Work Phone: 1([phone]) 410-874610-14-2021 15:19-0400Systolic blood vcqcyciu391 mm[Hg] Albert Andes DO Work Phone: [facility] Work Phone: 1([phone] 952-747310-14-2021 15:15-5438ZaL4% (BldA) [Mass fraction]96 % Albert Andes DO Work Phone: [employer] Work Phone: 1(327) 473-211810-14-2021 12:02-0400Body .9 cmJustin Andes DO Work Phone: [facility] [employer] Work Phone: 1(385) 667-374410-14-2021 12:02-0400Body mass index (BMI) [Ratio] 30.23 kg/w9Zbobhn Andes DO Work Phone: [facility] [employer] Work Phone: [phone] 12:02-0400Body xbxeqmsmjwu17.7 [degF]Albert Andes DO Work Phone: [facility] [employer] Work Phone: [phone] 12:02-0400Body kdygtq08.58 kgJustin Andes DO Work Phone: [facility] [employer] Work Phone: 1(283) 555-530910-14-2021 12:02-0400Heart rate70 /minJustin Andes DO Work Phone: [employer] Work Phone: 1(520) 544-341610-14-2021 12:02-0400Respiratory rate18 /minJustin Andes DO Work Phone: [facility] [employer] Work Phone: 1(898) [phone] 19:00-0400Diastolic blood yxdxcebw50 mm[Hg] Mukeshpaige Marley MD Work Phone: [facility] [employer] Work Phone: 1([phone] 19:00-0400Systolic blood mm[Hg] Mukeshpaige Marley MD Work Phone: [facility] [employer] Work Phone: 1(857) 309-850909-05-2021 17:30-6410QmX0% (BldA) [Mass fraction]99 % Mukeshpaige Marley MD Work Phone: [facility] [employer] Work Phone: 1([phone] 478-777609-05-2021 15:50-0400Body mass index (BMI) [Ratio] 34.01 kg/m2Mukesh Marley MD Work Phone: [facility] [employer] Work Phone: 1([phone]) 613-606009-05-2021 15:50-0400Body dvubynpfqvg41.6 [degF]Mukesh Marley MD Work Phone: [facility] [employer] Work Phone: 1([phone] 15:50-0400Body kalrqp05.65 kgMukesh Marley MD Work Phone: [facility] [employer] Work Phone: 1([phone] 205-167309-05-2021 15:50-0400Heart rate77 /Jimmie Marley MD Work Phone: [facility] [employer] Work Phone: 1(216) 506-636809-05-2021 15:50-0400Respiratory rate16 /Jimmie Marley MD Work Phone: [facility] [employer] Work Phone: 1(667) 508-371901-12-2021 09:55-0500BMI (Body Mass Index)33.7 kg/m2 [facility] Work Phone: 1(737) 853-931701-12-2021 09:55-0500Body Jgqdiyvynwz38.7 [degF][facility] Work Phone: 1(639) 903-111201-12-2021 09:55-0500Body pnrocf87.61 kgAijuanito [place] Work Phone: 1(310) 419-670101-12-2021 09:55-0500BP Fhpbstwfz01 mm[Hg][facility] Work Phone: 1(241) 877-174101-12-2021 09:55-0500BP Uylwmocd261 mm[Hg][facility] Work Phone: 1(858) 797-775501-12-2021 09:55-0500BSA (Body Surface Area)1.78 m2 [facility] Work Phone: 1(988) 959-189201-12-2021 09:55-7070Gxglwu028.67 cmAimee [facility] Work Phone: 1(748) 874-972801-12-2021 09:55-0500Pulse (Heart Rate)70 /minAijuanito [facility] Work Phone: 1(879) 291-323701-12-2021 09:55-0500Pulse Gmrvluso55 %[facility] Work Phone: 1(206) 635-993301-12-2021 09:55-0500Respiratory Rate18 /[facility] Work Phone: 1(422) 147-512701-05-2021 14:02-0500BMI (Body Mass Index)30.23 kg/m2 [facility], HN45-48-0521 14:02-0500Body Dkzwtlevaou67.9 [degF][facility], VK07-83-7934 14:02-0500Body .58 kgDepartment [facility], CO72-47-3602 14:02-0500BP Imfdqbvfx16 mm[Hg] [facility], YY44-65-2279 14:02-0500BP Axnbekgr517 mm[Hg] [facility], GN87-09-3304 14:02-0500Pulse (Heart Rate)63 /minDepartment [facility], BF52-94-6283 14:02-0500Pulse Kosvaqcd48 % [facility], MQ25-52-2159 14:02-0500Respiratory Rate18 /min [facility], QP45-32-0470 14:39-0500BP Ywlxxznrd16 mm[Hg] [facility], BR28-55-4570 14:39-0500BP Eofutpjt871 mm[Hg][facility], AV65-36-8388 14:39-0500Pulse (Heart Rate)65 /[facility], EV31-80-3860 14:39-0500Pulse Vrvpatak76 %[facility], GD59-53-9170 14:39-0500Respiratory Rate16 /minFair[facility], UD87-01-1850 13:59-0500BMI (Body Mass Index)30.23 kg/h1QllktDelaware County Hospital, RO34-96-6255 13:59-0500Body Lfqwfmuedjj91.01 [degF][facility], RD26-05-1602 13:59-0500Body .58 kgFairfield [facility] Center, MU73-33-5647 07:30-0500Body Mzqogjqpmwu89.7 [degF][facility], DE26-56-9473 07:30-0500BP Rdzscjrok29 mm[Hg][facility], FT54-31-2631 07:30-0500BP Zyifxmut688 mm[Hg][facility], YA18-98-4129 07:30-0500Pulse (Heart Rate)63 /min [facility], SN95-03-1958 07:30-0500Pulse Jefqxxvg617 % [facility], HD15-38-7381 07:30-0500Respiratory Rate16 /minTr[facility], BE72-70-7898 18:02-0500BMI (Body Mass Index)31.78 kg/f0ZwixnwlqdvjiTr[facility], XN40-73-3748 18:02-0500Body ubsgkd66.3 kgTr[facility], CN22-15-9108 18:02-0500Height 154.9 cmTr[facility], ME03-40-2988 10:52-0500BP Diastolic 91 mm[Hg]Josef [facility], ZL24-12-5467 10:52-0500BP Vnuhehif869 mm[Hg] [facility], ZQ33-29-0642 10:52-0500Pulse (Heart Rate)59 /minWilson Health, ZP90-80-7756 08:49-0500Body Krkvmmhvahl11.8 [degF][facility], SH73-62-2046 08:49-0500Pulse Fqbmxiio25 %[facility], GL17-25-8823 08:49-0500Respiratory Rate16 /minWilson Health, VT20-68-0787 08:07-7486Gebxer542.9 [facility], [place] 03-18-2020 03:57-0500BMI (Body Mass Index)33.32 kg/m2[facility], ON86-72-4814 03:57-0500Body kgWilson Health, EK95-28-2184 18:45-0500BP Bbzseeuhz91 mm[Hg][address], TX05-21-9311 18:45-0500BP Npbpklrg759 mm[Hg][address], LC28-79-9601 18:45-0500Pulse (Heart Rate)62 /min[address], RZ79-18-3123 18:45-0500Pulse Ovptenwz39 %[address], GS41-23-5358 18:45-0500Respiratory Rate14 /min[address], YC99-91-5225 16:28-0500BMI (Body Mass Index)32.12 kg/m[address], VL65-97-7101 16:28-0500Body Ujvfusbpaqf29.81 [degF][address], YV17-54-8290 16:28-0500Body .[address], [place] 03-17-2020 16:28-6953Czgmyo731.[address], ZL32-88-4039 13:36-0500Pulse (Heart Rate)67 /minEMiddletown [facility], CX09-71-9513 13:36-0500Pulse Airtpupz68 %Mukeshpaige MartinezMer[facility] Health [facility], KH71-04-7126 13:36-0500Respiratory Rate20 /Robertan JuanMercy Health [facility], RK26-11-6484 12:15-0500BP Ldmwtpkhy83 mm[Hg]Mukesh JuanMer[facility] Health [facility], IL41-85-6681 12:15-0500BP Hkbwayuq684 mm[Hg]Mukesh [facility]ameshShel[facility], WJ99-67-1305 11:27-0500BMI (Body Mass Index)34.01 kg/m2Etan [facility], [place] 03-13-2020 11:27-0500Body Bexyauqjyyh21.91 [degF]Mukesh ChandlerSheltering [facility], EO63-10-4337 11:27-0500Body rcgnon57.[address] [facility], [place] 02-12-2020 14:02-0500BMI (Body Mass Index)34.01 kg/e7Pfqmwjq [facility], CG41-05-4944 14:02-0500Body Tpudtomieqv78.4 [degF]Deion [facility], XH47-04-9814 14:02-0500Body iurkra38.65 kgDeion [facility], [place] 02-12-2020 14:02-0500BP Lhpymlkvm36 mm[Hg]Deion [facility], [place] 02-12-2020 14:02-0500BP Ycshwurv638 mm[Hg]Deion [facility], [place] 02-12-2020 14:02-0500Pulse (Heart Rate)67 /minBuffalo Psychiatric Centercarlos [facility], [place] 02-12-2020 14:02-0500Pulse Qykiubpc64 %Deion [facility], [place] 02-12-2020 14:02-0500Respiratory Rate14 /minBuffalo Psychiatric Centercarlos [facility], [place] 01-28-2020 09:30-0400BMI (Body Mass Index)33.9 kg/n3Jkgvg [facility] Work Phone: 1(887) 840-530810-29-2020 09:30-0400Body Qnlqyygidie89 [degF][facility] Work Phone: 1(227) 113-150810-29-2020 09:30-0400Body tznhwi61.02 kgAiKettering Health [facility]al Medical Center Work Phone: 1(524) 323-451210-29-2020 09:30-0400BP Xhzjlvsca39 mm[Hg][facility] Work Phone: 1(517) 451-760910-29-2020 09:30-0400BP Scgghrra434 mm[Hg][facility] Work Phone: 1(787) 341-633710-29-2020 09:30-0400BSA (Body Surface Area)1.78 m2 [facility] Work Phone: 1(899) 155-588210-29-2020 09:30-0351Avgdfr860.67 cmAimee [facility] Work Phone: 1(833) 645-212010-29-2020 09:30-0400Pulse (Heart Rate)68 /min[facility] Work Phone: 1(478) 981-921010-29-2020 09:30-0400Pulse Ramnatcs89 %[facility] Work Phone: 1(795) 993-942810-29-2020 09:30-0400Respiratory Rate20 /[facility] Work Phone: 1(149) 838-472708-17-2020 08:49-0400BMI (Body Mass Index)34.4 kg/m2 [facility] Work Phone: 1(841) 170-354808-17-2020 08:49-0400Body Xkcgznwvblb10.9 [degF][facility] Work Phone: 1(318) 608-215108-17-2020 08:49-0400Body yrxhjy88.56 [facility] Work Phone: 1(240) 181-473808-17-2020 08:49-0400BP Jjdkmgqgm75 mm[Hg][facility] Work Phone: 1(642) 466-694708-17-2020 08:49-0400BP Yeatmhzf02 mm[Hg][facility] Work Phone: 1(702) 326-784308-17-2020 08:49-0400BSA (Body Surface Area)1.81 m2 [facility] Work Phone: 1(891)563-487-177932-92319069-56-5785 08:49-7388Jimeeb417.94 [facility] Work Phone: 1(686)489-255-251454-83505885-43-6710 08:49-0400Pulse (Heart Rate)65 /[facility] Work Phone: 1(479)[phone] 08:49-0400Pulse Jtkxmrck49 %[facility] Work Phone: 1(474)[phone] 08:49-0400Respiratory Rate18 /[facility] Work Phone: 1(146) 716-345307-22-2020 14:02-0400BP Esfustsbu50 mm[Hg][facility], [id number] 14:02-0400BP Gblfcluz445 mm[Hg][facility], [id number] 14:02-0400Pulse (Heart Rate)66 /[facility], FB60-39-6588 14:02-0400Respiratory Rate20 /[facility], YK64-50-4221 13:40-0400Pulse Sipxiaih920 %[facility], ZK47-92-7124 13:34-0400BMI (Body Mass Index)34.01 kg/m2[facility], AU73-07-7841 13:34-0400Body Yfjmvrrpllq17.59 [degF][facility], PN42-50-1684 13:34-0400Body xgbuyn16.65 kgMukesh [facility], ZZ39-38-6132 13:34-7317Nwuend040.9 cmElaura [facility], 10-21-2019 08:16-0400BMI (Body Mass Index)35 kg/a0QrhmkSelect [facility] Work Phone: 1(145) 08:16-0400Body Tlabkwdsjzw71.1 [degF][facility] Work Phone: 1(665) 08:16-0400Body paihpl06.01 kgAiKettering Health [facility]al [facility] Work Phone: 1([phone] 08:16-0400BP Rwrcwradf22 mm[Hg][facility] Work Phone: 1(117) 08:16-0400BP Jeksyofm982 mm[Hg][facility] Work Phone: 1(675) 08:16-0400BSA (Body Surface Area)1.83 m2 [facility] Work Phone: 1(891) 08:16-4363Uvwans033.94 cmAOhio State [facility] System Work Phone: [phone]) 08:16-0400Pulse (Heart Rate)72 /[facility] Work Phone: 1(564) 08:16-0400Pulse Pucwqqck87 %[facility] Work Phone: 1(152) 08:16-0400Respiratory Rate20 /[facility] Work Phone: 1(804) 02:32-0400BP Nxqbtwdun23 mm[Hg][facility], KP60-21-1025 02:32-0400BP Fhdtuzxp410 mm[Hg][facility], SD10-77-5023 02:32-0400Pulse (Heart Rate)96 /minSyed [facility], EH8051 02:32-0400Pulse Viccklye17 %[facility], RD88-66-1824 23:38-0400Respiratory Rate16 /minSyed [facility], GI72-59-1784 22:52-0400Body Tqbhlrwqeav78.7 [degF]Wesly [facility], UI27-61-7940 11:11-0400Respiratory rateNOT REPORTEDCoulee Medical Center, BQ84-91-1396 10:57-0400Pulse Qbrviuxi11 %[facility], JL40-74-2297 09:21-0400Body Mfntgnuvchl621.2 [degF][facility], EJ78-95-1409 09:21-0400BP Jwxesptwc71 mm[Hg][facility], RO53-06-6461 09:21-0400BP Tkkmizlg987 mm[Hg] [facility], GB62-30-4409 09:21-9048Lajpzu077.6 cm [facility], VO94-81-1967 09:21-0400Pulse (Heart Rate)85 /[facility], CC35-97-5694 09:21-0400Respiratory Rate22 /[facility], OI25-03-5996 13:14-0400Body upzwug819.94 cmAkamiki Angelita [facility] Work Phone: [facility] Work Phone: 1(887) 363-658006-25-2020 13:14-0400Body mass index (BMI) [Ratio]35.4 kg/z0Dagqu Angelita [employer] Work Phone: [facility] Work Phone: 1(409) 313-750206-25-2020 13:14-0400Body surface area Derived from formula1.84 i3WabqnVahid Nagy CNP Work Phone: [phone] Work Phone: [phone] 13:14-0400Body ekgoczlfigj04.9 [degF]Vahid Nagy CNP Work Phone: [phone] Work Phone: [phone] 13:14-0400Body .1 kgAijuanito Nagy CNP Work Phone: [phone] Work Phone: [phone] 13:14-0400Diastolic blood vlpecxbb55 mm[Hg] Vahid Nagy CNP Work Phone: [phone] Work Phone: [phone] 13:14-0400Heart rate74 /Kip Nagy CNP Work Phone: [facility] Work Phone: [phone] 13:14-0400Pulse Mucfsncw63 %Vahidchristiano Nagy [facility] Work Phone: [phone] 13:14-0400Respiratory rate18 /Kip Nagy CNP Work Phone: [phone] Work Phone: [phone] 13:14-1363FoN4% (BldA) [Mass fraction]98 % Vahid Nagy [facility] Work Phone: [phone] Work Phone: [phone] 13:14-0400Systolic blood leignvwn499 mm[Hg] Vahid Nagy [employer] AD[employer] Work Phone: [phone] Work Phone: [phone] 10:15-0400Pulse (Heart Rate)78 /Ryan [facility]ALV[facility], NU73-75-1165 08:00-0400Body Utokkvhtbnd87.5 [degF]Chago ElecarALVIN J. [facility], TT55-57-6258 08:00-0400BP Nlgxwcfny46 mm[Hg]Chago Marr [facility], RP71-33-7831 08:00-0400BP Ahsinqzk137 mm[Hg][facility], CG50-18-9780 08:00-0400Pulse Vkldrvxb66 %[facility], EH43-40-1253 19:33-0400Respiratory Rate17 /minChago [facility], 07-23-2019 06:00-0400BMI (Body Mass Index)35.9 kg/h1IcyviChago [facility]Community [facility], IC44-20-7680 06:00-0400Body dpfazx23.[address] [facility], 07-18-2019 02:02-8615Hwkgyf665.9 cmChago [facility]Community [facility], XZ35-46-9673 23:47-0400BP Hphmqebkd52 mm[Hg]Luis [facility], QT74-05-4970 23:47-0400BP Zzihabje445 mm[Hg]Luis [facility], BD02-55-1796 23:47-0400Pulse (Heart Rate)72 /Harish [facility], WE09-66-2544 23:47-0400Respiratory Rate16 /Harish [facility], PZ99-15-8030 19:25-0400Pulse Ekuhsuux40 %Luis [facility], SA72-79-0612 18:28-0400 Respiratory rateNOT REPORTEDOur [facility], KT26-55-5480 17:32-0400 BMI (Body Mass Index)34.01 kg/w2Vtinr [facility], TF92-33-6630 17:32-0400Body Gjzfcvksuxt81.9 [degF]Luis [facility], AJ07-24-5176 17:32-0400Body oibudk46.65 kgTerrySt. Elizabeth [facility], QQ06-99-8214 14:47-0400BMI (Body Mass Index)35.7 kg/t9QsxnqVahid BrewerHealthmark Regional Medical [facility] Work Phone: [phone])[phone]5-4417 14:47-0400Body Bqtdtdgjeed76.5 [degF][facility] Work Phone: 1(720) 14:47-0400Body ibawcz63.73 kgAiKettering Health Behavioral Medical Center Work Phone: 1(660) 14:47-0400BP Pumqcjgpl89 mm[Hg][facility] Work Phone: 1(159) 14:47-0400BP Exxxgzja613 mm[Hg][facility] Work Phone: 1(078) 14:47-0400BSA (Body Surface Area)1.84 m2 [facility] Work Phone: 1(365) 14:47-0074Hlqcld728.94 cmAOhio State Health System Work Phone: 1(385) 14:47-0400Pulse (Heart Rate)63 /[facility] Work Phone: 1(772) 14:47-0400Pulse Phoytcqu40 %[facility] Work Phone: [phone]) 14:47-0400Respiratory Rate18 /[facility] Work Phone: 1(290) 14:47-0406GpG9% (BldA) [Mass fraction]96 % [facility] Work Phone: [phone] Work Phone: 1(141) 16:48-0400BP Nuzdhhcvs48 mm[Hg][facility], KW13-45-9159 16:48-0400BP Rpiqrvbz969 mm[Hg][facility], GF86-52-7076 16:48-0400Pulse (Heart Rate)56 /[facility], XC40-40-0516 16:48-0400Respiratory Rate17 /minEtan [facility], YD97-92-0562 14:53-0400BMI (Body Mass Index)34.01 kg/m2Mukesh Marley [facility], JT48-05-3848 14:53-0400Body Trsvybosfta17.4 [degF]Mukesh [facility]Fire[facility], JM94-30-1754 14:53-0400Body .65 kg[facility], VX61-28-5654 14:53-0400Pulse Yqrlgevi32 %Mukesh [facility], UR96-94-2141 09:21-0500BMI (Body Mass Index)37.6 kg/s9Wlwrb [facility], KG03-22-0059 09:21-0500Body Rzmolxtfbbt88.9 [degF][facility], TQ29-22-6084 09:21-0500Body kgbhba36.27 kgLuis [facility], PR63-57-4358 09:21-0500BP Mnfrbvata84 mm[Hg][facility], [place] 05-27-2019 09:21-0500BP Qwqrovgd550 mm[Hg][facility], [place] 05-27-2019 09:21-0500Pulse (Heart Rate)83 /[facility], [place] 05-27-2019 09:21-0500Pulse Jcgxheai24 %[facility], KN79-94-7561 09:21-0500Respiratory Rate16 /[facility], TL97-71-5656 15:11-0500BMI (Body Mass Index)37.4 kg/f6Lnutd [facility] Work Phone: 1(349) 15:11-0500Body Gbosldjgzgt81.4 [degF]Vahid [facility] Work Phone: [phone] 15:11-0500Body uuxrsm74.81 kgAijuanito [place] Work Phone: 1(419) 15:11-0500BP Cjsumcurd75 mm[Hg][facility] Work Phone: 1(158) 15:11-0500BP Zhbqpguz041 mm[Hg][facility] Work Phone: 1(184) 15:11-0500BSA (Body Surface Area)1.88 m2 [facility] Work Phone: 1(865) 15:11-4739Tnngbe154.94 cmAimeArkansas State Psychiatric [facility] Work Phone: 1(146) 15:11-0500Pulse (Heart Rate)71 /[facility] Work Phone: 1(507) 15:11-0500Pulse Mrrbhowg75 %[facility] Work Phone: 1(368) 15:11-0500Respiratory Rate18 /[facility] Work Phone: 1([phone]) 15:11-9624GuE2% (BldA) [Mass fraction]90 % [facility] Work Phone: [phone] Work Phone: 1(032) 08:00-0500Body thrczrroott15.7 [degF]Albert Andes DO Work Phone: [facility] Work Phone: 1(682) 175-500201-26-2020 08:00-0500Diastolic blood mm[Hg] Albert Andes DO Work Phone: [facility] Work Phone: 1(476) 514-724401-26-2020 08:00-0500Heart rate73 /minJustin Andes DO Work Phone: [facility] Work Phone: 1(224) 548-682501-26-2020 08:00-0500Respiratory rate18 /minJustin Andes DO Work Phone: [facility] [employer] Work Phone: 1(101) 540-592801-26-2020 08:00-6896EeI9% (BldA) [Mass fraction]93 % Albert Andes DO Work Phone: [facility] [employer] Work Phone: 1(554) 374-458201-26-2020 08:00-0500Systolic blood zogyfzot073 mm[Hg] Albert Andes DO Work Phone: [facility] [employer] Work Phone: 1(948) [phone] 05:00-0500Body mass index (BMI) [Ratio] 36.81 kg/j8Xyxrms Andes DO Work Phone: [facility] [employer] Work Phone: 1(102) 175-460001-26-2020 05:00-0500Body dsjyve32.36 kgJustin Andes DO Work Phone: [facility] [employer] Work Phone: 1(892) 386-277401-21-2020 22:00-0500Body .9 cmJustin Andes DO Work Phone: [facility] [employer] Work Phone: 1(208) [phone] 13:56-0500BMI (Body Mass Index)36.4 kg/m2 [facility] Work Phone: 1(962) 13:56-0500Body Rvvzmqwsdic66.5 [degF][facility] Work Phone: 1(729) 13:56-0500Body przpru57.36 kgAiKettering Health Behavioral Medical Center Work Phone: 1(180) 13:56-0500BP Toeheajxd63 mm[Hg][facility] Work Phone: 1(012) 13:56-0500BP Glctbepd727 mm[Hg][facility] Work Phone: [phone] 13:56-0500BSA (Body Surface Area)1.86 m2 Vahid [facility] Work Phone: 1(046)[phone] 13:56-3126Hdrluz418.94 cmAimeki [facility] Work Phone: 1(070)[phone] 13:56-0500Pulse (Heart Rate)61 /minAicoe [facility] Work Phone: [phone]([phone] 13:56-0500Pulse Uqhzdrba84 %[facility] Work Phone: [phone](305)[phone] 13:56-0500Respiratory Rate18 /[facility] Work Phone: [phone] 13:56-7622KgP5% (BldA) [Mass fraction]90 % [facility] Work Phone: [facility] Work Phone: [phone] 14:21-0500Diastolic blood odlfnmdb46 mm[Hg] Harish Betancourtrov [employer] Work Phone: [facility] [employer] Work Phone: 1(710) 547-801901-12-2020 14:21-5540NyG4% (BldA) [Mass fraction]95 % Harish Betancourtrov DO Work Phone: [facility] Work Phone: 1(423) 332-852801-12-2020 14:21-0500Systolic blood qzhdbkih206 mm[Hg] Harish Betancourtrov DO Work Phone: [facility] [employer] Work Phone: 1(929) 241-590801-12-2020 13:02-0500Heart rate60 /minAlexander Bobrov DO Work Phone: [facility] [employer] Work Phone: 1(169) 561-845301-12-2020 12:58-0500Respiratory rate20 /minAlexander Serafinrov DO Work Phone: [facility] Work Phone: 1(635) 368-160301-12-2020 10:19-0500Body .9 cmAjonas Sebastian DO Work Phone: [facility] [employer] Work Phone: 1(834) [phone] 10:19-0500Body mass index (BMI) [Ratio]35.9 kg/f5Lchjgbvyyfortunato Sebastian DO Work Phone: [facility] [employer] Work Phone: 1(730) 133-213801-12-2020 10:19-0500Body rsuzmkluiio01.8 [degF] Harish Sebastian DO Work Phone: [facility] [employer] Work Phone: 1(963) 168-617201-12-2020 10:19-0500Body mloxar60.18 kgAlefortunato Sebastian DO Work Phone: [facility] [employer] Work Phone: 1(278) 208-788212-20-2019 08:34-0500BP Dmewtwxzu87 mm[Hg][facility] Work Phone: [phone](273)[phone] 08:34-0500BP Gowxnpiv302 mm[Hg][facility] Work Phone: [phone]([phone] 08:12-0500BMI (Body Mass Index)36 kg/m2 [facility] Work Phone: 1(754)[phone] 08:12-0500Body Wsudbbgorlh62.5 [degF][facility] Work Phone: 1(817)[phone] 08:12-0500Body ejveam34.46 kgAicoki [place] Work Phone: 1(416)[phone]0-5478 08:12-0500BP Oqniymfet70 mm[Hg][facility] Work Phone: 5(997)[phone] 08:12-0500BP Dyplpktc667 mm[Hg][facility] Work Phone: 1(023)[phone]9-4402 08:12-0500BSA (Body Surface Area)1.85 m2 [facility] Work Phone: 1(770)[phone]6-6610 08:126805Ehluhg187.94 cmAOhio State Health System Work Phone: 6(378)374-664773571-81-9990 08:12-0500Pulse (Heart Rate)73 /[facility] Work Phone: 6(952)[phone] 08:12-0500Pulse Oxzkeorz14 %[facility] Work Phone: 4(380)[phone] 08:12-0500Respiratory Rate18 /[facility] Work Phone: 5(139)985-574063235-93-8785 08:12-0915KtK1% (BldA) [Mass fraction]85 % [facility] Work Phone: [facility] Work Phone: [phone](850)149-366586024-76-1014 14:31-0500BMI (Body Mass Index)35.5 kg/m2 [facility] Work Phone: 2(714)610-757785206-53-1965 14:31-0500Body Ebtktexkufn86.9 [degF][facility] Work Phone: 4(585)[phone] 14:31-0500Body cftuyp82.28 [facility] Work Phone: 2(856)711-885207110-90-8814 14:31-0500BP Zlfxoslsu72 mm[Hg][facility] Work Phone: 1(871)445-945487526-37-0840 14:31-0500BP Sbsgrtmk063 mm[Hg][facility] Work Phone: 1(064)566-365171702-02-5951 14:31-0500BSA (Body Surface Area)1.84 m2 [facility] Work Phone: 9(226)747-054342241-81-2739 14:31-4655Ynqubc733.94 cmAimee [facility] Work Phone: 1(166) [phone] 14:31-0500Pulse (Heart Rate)61 /[facility] Work Phone: 1(851) 558-335912-03-2019 14:31-0500Pulse Vqisoztd87 %[facility] Work Phone: 1(152) [phone] 14:31-0500Respiratory Rate14 /[facility] Work Phone: 1(941) [phone] 14:31-5935JpU6% (BldA) [Mass fraction]88 % [facility] Work Phone: [facility] Work Phone: 1(980) [phone] 20:22-0500BP Qheypuhbe69 mm[Hg][facility], DN19-31-1053 20:22-0500BP Fyzhqkxi401 mm[Hg][facility], US45-58-3361 20:22-0500Respiratory Rate16 /[facility], UH29-20-8067 16:25-0500Pulse Xrwbsdvd55 %[facility], ZI81-87-9936 16:23-0500Body Oxscwranqlf45.71 [degF][facility] DR14-54-8841 16:23-0500Pulse (Heart Rate)68 /[facility]At[facility], JD40-76-6931 09:12-0500BMI (Body Mass Index)35.6 kg/m2 [facility] Work Phone: 9(280)249-869780483-58-3028 09:12-0500Body Ygkebqwwlmw05.7 [degF][facility] Work Phone: 1(320) 167-749011-21-2019 09:12-0500Body aprbfn32.55 kgAiKettering Health [facility]al Medical Center Work Phone: 1(419)[phone] 09:12-0500BP Suusdulit44 mm[Hg][facility] Work Phone: 1(484)[phone] 09:12-0500BP Cwhzwlef354 mm[Hg][facility] Work Phone: 1(114)[phone]1-0648 09:12-0500BSA (Body Surface Area)1.84 m2 [facility] Work Phone: 1(663)[phone] 09:12-1251Uzijkv916.94 cmAimeArkansas State Psychiatric Hospital Work Phone: 1(708)[phone]9-1601 09:12-0500Pulse (Heart Rate)67 /[facility] Work Phone: 5(131)[phone] 09:12-0500Pulse Rtpeodtr54 %[facility] Work Phone: 1(108)[phone] 09:12-0500Respiratory Tjkt189.6 /[facility] Work Phone: 1(982)[phone]2-3275 09:12-1595VaO5% (BldA) [Mass fraction]90 % [facility] Work Phone: [facility] Work Phone: 0(565)[phone] 09:50-0400BMI (Body Mass Index)34.8 kg/m2 [facility] Work Phone: [phone](088)[phone] 09:50-0400Body Plsdsyemiuz21.4 [degF][facility] Work Phone: 0(435)[phone] 09:50-0400Body zlzokq63.55 kgAiKettering Health Behavioral Medical Center Work Phone: 9(422)445-996111160-31-9252 09:50-0400BP Euvusenvg82 mm[Hg][facility] Work Phone: 1(716)[phone]5-5962 09:50-0400BP Kxwgsuwm514 mm[Hg][facility] Work Phone: 1(144)[phone] 09:50-0400BSA (Body Surface Area)1.82 m2 [facility] Work Phone: 3(874)973-511629318-56-2862 09:50-2866Xqrkqb603.94 cmAimeArkansas State Psychiatric Hospital Work Phone: 1(743)[phone] 09:50-0400Pulse (Heart Rate)64 /[facility] Work Phone: 9(664)844-159638075-84-1924 09:50-0400Pulse Uxwbtrqq07 %[facility] Work Phone: 6(264)[phone] 09:50-0400Respiratory Rate18 /[facility] Work Phone: 4(274)809-759464908-44-0676 09:50-7267ZzX7% (BldA) [Mass fraction]98 % [facility] Work Phone: [facility] Work Phone: 5(963)[phone] 16:41-0400BMI (Body Mass Index)34.9 kg/m2 [facility] Work Phone: 3(564)[phone] 16:41-0400Body Haerszzjiwo21.6 [degF][facility] Work Phone: 5(036)[phone] 16:41-0400Body .78 kgAiKettering Health Behavioral Medical Center Work Phone: 0(678)647-231823666-77-5879 16:41-0400BP Kfsattzam01 mm[Hg][facility] Work Phone: 7(957)113-532432102-46-0964 16:41-0400BP Wqyauuxq782 mm[Hg][facility] Work Phone: 8(105)673-357684740-77-7090 16:41-0400BSA (Body Surface Area)1.83 m2 [facility] Work Phone: 1(312) [phone] 16:41-3786Qwbghe932.94 [facility] Work Phone: 3(720)542-391055810-01-5937 16:41-0400Pulse (Heart Rate)63 /[facility] Work Phone: 1(414)[phone] 16:41-0400Pulse Kuorjisi71 %[facility] Work Phone: 1(833) 549-313610-24-2019 16:41-0400Respiratory Rate18 /[facility] Work Phone: 4(409)721-099207270-77-3445 16:41-7361VyU5% (BldA) [Mass fraction]93 % [facility] Work Phone: [facility] Work Phone: 8(924)[phone] 12:41-0400BMI (Body Mass Index)32.12 kg/m2 [facility], FU04-13-0376 12:41-0400Body Azbycxuivnp57.8 [degF] [facility] BO16-40-2092 12:41-0400Body jybdus93.11 kgUniversity [facility] YN33-51-8926 12:41-0400BP Zyszxallf09 mm[Hg][facility], MW60-54-1716 12:41-0400BP Qkwjymix421 mm[Hg][facility], MN81-86-8863 12:41-0067Evmeez726.9 [facility] MA19-80-0748 12:41-0400Pulse (Heart Rate)75 /[place] 01-13-2019 12:41-0400Pulse Vbdwkbcy09 %[place], [place] 01-13-2019 12:41-0400Respiratory Rate18 /[facility] 01-12-2019 14:15-0400BMI (Body Mass Index)35.1 kg/d8YmipsSelect [facility] Work Phone: 1(393) [phone] 14:15-0400Body Agzrtklsecy11.6 [degF][facility] Work Phone: 1(305) [phone] 14:15-0400Body jprinz67.19 kgAiKettering Health Behavioral Medical Center Work Phone: 1(243) 411-112110-14-2019 14:15-0400BP Okanzcwdq72 mm[Hg][facility] Work Phone: 1(941) [phone] 14:15-0400BP Dibidpyp752 mm[Hg][facility] Work Phone: 1(155) 856-106810-14-2019 14:15-0400BSA (Body Surface Area)1.83 m2 [facility] Work Phone: 1(300) 170-867210-14-2019 14:15-1821Yixlwe542.94 cmAOhio State Health System Work Phone: 1(333) 125-796310-14-2019 14:15-0400Pulse (Heart Rate)64 /[facility] Work Phone: 1(422) 718-154210-14-2019 14:15-0400Pulse Dchdtoun86 %[facility] Work Phone: 1(914) 407-106710-14-2019 14:15-0400Respiratory Rate14 /[facility] Work Phone: 1(140) 192-855710-14-2019 14:15-2656JnX8% (BldA) [Mass fraction]91 % [facility] Work Phone: [facility] Work Phone: 1(337) 864-575509-12-2019 17:39-0400BMI (Body Mass Index)32.9 kg/m2 [facility] Work Phone: [phone](486)[phone] 17:39-0400Body ddylwx99.06 kgAiKettering Health Behavioral Medical Center Work Phone: 1(091)[phone] 17:39-0400BP Tsggdqhlj11 mm[Hg][facility] Work Phone: 1(638)[phone] 17:39-0400BP Hpgzixgz597 mm[Hg][facility] Work Phone: 1(754)[phone] 17:39-0400BSA (Body Surface Area)1.78 m2 [facility] Work Phone: 1(733)[phone] 17:39-6799Uvmlaz705.94 [facility] Work Phone: 1(024)[phone] 17:39-0400Pulse (Heart Rate)85 /[facility] Work Phone: 1(240)669-451667-01 17:39-0400Pulse Fyjnuzyd68 %[facility] Work Phone: 1(656)[phone] 17:39-0400Respiratory Rate18 /[facility] Work Phone: 5(147)[phone] 17:39-5131EeA2% (BldA) [Mass fraction]82 % [facility] Work Phone: [facility] Work Phone: 1(018)[phone] 18:09-0400BMI (Body Mass Index)34 kg/m2 [facility] Work Phone: 5(903)[phone] 18:09-0400Body Sajevvbirqs32.2 [degF][facility] Work Phone: 8(466)[phone] 18:09-0400Body .56 [facility] Work Phone: 6(259)939-506704391-66-6801 18:09-0400BP Irhqufzya96 mm[Hg][facility] Work Phone: 1(214)[phone] 18:0BP Zunneckx067 mm[Hg][facility] Work Phone: 7(585)[phone] 18:090BSA (Body Surface Area)1.81 m2 [facility] Work Phone: 1(360)937-416-997652-31 18:9091Hlyhft123.94 [facility] Work Phone: 1(725)827-059613-116692-63624488-77-4311 18:0Pulse (Heart Rate)67 /[facility] Work Phone: 1(975)[phone] 18:09-0Pulse Yaeypzfq91 %[facility] Work Phone: 7(292)[phone] 18:090400Respiratory Rate14 /[facility] Work Phone: 2(504)512-331508222-26-9616 18:09-7214DcT2% (BldA) [Mass fraction]92 % [facility] Work Phone: [facility] Work Phone: 4(311)[phone] 11:13-0400BMI (Body Mass Index)33.4 kg/m2 [facility] Work Phone: 4(695)[phone] 11:13-0400Body Qodvggecusg73.5 [degF][facility] [place] Work Phone: [phone](121)[phone] 11:13-0400Body istlut78.2 kgAiK[facility] Work Phone: 4(054)[phone] 11:13-0400BP Gelkevube24 mm[Hg][facility] Work Phone: [phone](256)[phone] 11:13-0400BP Sleohtsq795 mm[Hg][facility] Work Phone: [phone](085)[phone] 11:BSA (Body Surface Area)1.79 m2 [facility] Work Phone: 5([phone] 11:2442Gumpqp821.94 cmAOhio [facility] Work Phone: [phone] 11:0Pulse (Heart Rate)69 /[facility] Work Phone: 0([phone])[phone] 11:13-0Pulse Wzshghkl48 %[facility] Work Phone: 3(271)[phone] 11:13-0Respiratory Rate18 /[facility] Work Phone: [phone]([phone] 11:13-8267HeQ1% (BldA) [Mass fraction]91 % [facility] Work Phone: [facility] Work Phone: [phone] 17:28-0400BP Wiascikyt24 mm[Hg][facility] Work Phone: [phone](994)[phone] 17:28-0400BP Zghqziku578 mm[Hg][facility] Work Phone: [phone] 16:49-0400BP Aankrrsxp21 mm[Hg][facility] Work Phone: 4([phone] 16:49-0400BP Koxdzare328 mm[Hg][facility] Work Phone: 4(166)[phone] 16:34-0400BMI (Body Mass Index)33.9 kg/m2 [facility] Work Phone: [phone] 16:34-0400Body Cgbyswoppmu32 [degF][facility] Work Phone: [phone](486)[phone] 16:34-0400Body hclgyo10.38 [facility] Work Phone: [phone] 16:34-0400BP Yxjjgbjol75 mm[Hg][facility] Work Phone: [phone] 16:34-0400BP Iwtdmnul968 mm[Hg][facility] Work Phone: [phone]([phone] 16:34-0400BSA (Body Surface Area)1.8 m2 [facility] Work Phone: 1(464)[phone] 16:34-9053Kzjhlf327.94 cmAimeArkansas State Psychiatric Hospital Work Phone: [phone] 16:34-0400Pulse (Heart Rate)65 /[facility] Work Phone: [phone] 16:34-0400Pulse Zxkfgkus49 %[facility] Work Phone: [phone] 16:34-0400Respiratory Rate18 /[facility] Work Phone: [phone] 08:55-0400BMI (Body Mass Index)33.3 kg/m2 [facility] Work Phone: [phone]([phone] 08:55-0400Body Iqomzowzywj96.2 [degF][facility] Work Phone: [phone] 08:55-0400Body .83 [facility] Work Phone: [phone] 08:55-0400BP Kcjcvxcog37 mm[Hg][facility] Work Phone: [phone] 08:55-0400BP Cjyopguu189 mm[Hg][facility] Work Phone: 4(201)[phone] 08:55-0400BSA (Body Surface Area)1.79 m2 Vahid [facility] Work Phone: [phone] 08:55-2678Bbwbze180.94 Silviacarolinas continuecare hospital at pinevilleki [facility] Work Phone: [phone] 08:55-0400Pulse (Heart Rate)61 /[facility] Hospit[facility] Work Phone: [phone] 08:55-0400Pulse Afvbtepx40 %[facility] Work Phone: [phone] 08:55-0400Respiratory Rate20 /[facility] Work Phone: 1(193) 09:20-0400Body .94 Mar Nagy [facility] Work Phone: [phone] Work Phone: [phone]([phone] 09:20-0400Body mass index (BMI) [Ratio]34.3 kg/g5AzbmkVahid Nagy [employer] Work Phone: [phone] Work Phone: [phone]([phone] 09:20-0400Body surface area Derived from formula1.81 j7AsvpaVahid Nagy CNP Work Phone: [phone] Work Phone: [phone] 09:20-0400Body .8 [degF]Vahid Nagy [employer] Work Phone: [phone] Work Phone: [phone] 09:20-0400Body icvgbp91.37 kgAijuanito Nagy [facility] Work Phone: [phone] Work Phone: [phone] 09:20-0400Diastolic blood kbzksowa69 mm[Hg] Vahid Nagy CNP Work Phone: [phone] Work Phone: [phone] 09:20-0400Heart rate68 /Kip Nagy CNP Work Phone: [phone] Work Phone: [phone] 09:20-0400Pulse Dormqdkw26 %Vahid Nagy [facility] Work Phone: [phone] 09:20-0400Respiratory rate18 /Kip Nagy CNP Work Phone: [facility] Work Phone: 1([phone] 09:20-2036MiM7% (BldA) [Mass fraction]98 % Vahid Nagy CNP Work Phone: [facility] Work Phone: [phone] 09:20-0400Systolic blood ftauswsw975 mm[Hg] Vahid Nagy CNP Work Phone: [facility] Work Phone: [phone] 09:27-0500Body xsayjd089.94 cmAjoelle Nagy CNP Work Phone: [phone] Work Phone: [phone] 09:27-0500Body mass index (BMI) [Ratio]34.2 kg/x3GyyebVahid Nagy CNP Work Phone: [phone] Work Phone: [phone] 09:27-0500Body surface area Derived from formula1.81 g8MnogoVahid Nagy CNP Work Phone: [facility] Work Phone: [phone] 09:27-0500Body kqzlqlpenib70.6 [degF]Vahid Nagy CNP Work Phone: [phone] Work Phone: [phone] 09:27-0500Body .19 kgAijuanito Nagy CNP Work Phone: [phone] Work Phone: [phone] 09:27-0500Diastolic blood fyvxdlyk63 mm[Hg] Vaihd Nagy CNP Work Phone: [phone] Work Phone: [phone] 09:27-0500Heart rate71 /Kip Nagy CNP Work Phone: [facility] Work Phone: [phone] 09:27-0500Pulse Uofhdlop24 %Vahid Nagy [facility] Work Phone: 1(432) 09:27-0500Respiratory rate18 /Kip Nagy CNP Work Phone: [phone] Work Phone: [phone] 09:27-8828AjR8% (BldA) [Mass fraction]92 % Vahid Nagy CNP Work Phone: [facility] Work Phone: [phone] 09:27-0500Systolic blood xelznhhr932 mm[Hg] Vahid Nagy CNP Work Phone: [phone] Work Phone: [phone]([phone] 09:11-0500Body .94 cmAjoelle Nagy CNP Work Phone: [facility] Work Phone: [phone] 09:11-0500Body mass index (BMI) [Ratio]33.7 kg/x4TvpjsVahid Nagy CNP Work Phone: [phone] Work Phone: 1(029) 09:11-0500Body surface area Derived from formula1.8 q0NvkmvVahid Nagy CNP Work Phone: [phone] Work Phone: 1([phone] 09:11-0500Body hdmygfxmofy32.3 [degF]Vahid Nagy CNP Work Phone: [phone] Work Phone: [phone](632) 09:11-0500Body .79 kgVahid Nagy CNP Work Phone: [phone] Work Phone: [phone] 09:11-0500Diastolic blood cybwbtlc24 mm[Hg] Vahid Nagy CNP Work Phone: [phone] Work Phone: [phone] 09:11-0500Heart rate72 /Kip Nagy CNP Work Phone: [phone] Work Phone: [phone] 09:11-0500Pain Level7 1Aimeki Nagy CNP Work Phone: [phone] Work Phone: [phone]([phone] 09:11-0500Pulse Arolfjhn50 %Vahid Nagy [facility] Work Phone: [phone] 09:11-0500Respiratory rate18 /Kip Nagy CNP Work Phone: [phone] Work Phone: [phone] 09:11-9844IqL5% (BldA) [Mass fraction]92 % Vahid Nagy CNP Work Phone: [phone] Work Phone: [phone] 09:11-0500Systolic blood orejdkfd402 mm[Hg] Vahid Nagy CNP Work Phone: [phone] Work Phone: [phone])[phone] 15:13-0500BMI (Body Mass Index)34.81 kg/m2 [facility] 29-167010-13867337-19-2296 15:13-0500Body Kqarhavwftn62.1 [degF][facility] 12-132013-16386283-63-4401 15:13-0500BP Jtgmmfait71 mm[Hg]Ender [facility] 25-30 15:13-0500BP Ysbsqgqn734 mm[Hg][facility] Work Phone: [phone] 15:13-0500BSA (Body Surface Area)1.9 m2 [facility] Work Phone: [phone] 15:13-5522Trehqn045.94 cmIsabellaaddy [facility] Work Phone: [phone] 15:13-0500Pulse (Heart Rate)70 /[facility] 67-821589-13293223-29-0664 15:13-0500Pulse Aiwmsmpi46 %[facility] 43-85 15:13-0500Respiratory Rate20 /[facility] 30-435306-37608883-44-3319 15:13-0311Tudnxq08.58 kgJackson [facility] Work Phone: [phone] 13:13-0500Body booitk439.94 cmAjoelle Nagy CNP Work Phone: [phone] Work Phone: [phone] 13:13-0500Body mass index (BMI) [Ratio]34.8 kg/f4DptwwVahid Nagy CNP Work Phone: [phone] Work Phone: [phone] 13:13-0500Body surface area Derived from formula1.82 p8JyubgVahid Nagy CNP Work Phone: [phone] Work Phone: [phone]([phone] 13:13-0500Body miqgnsllpgd92.1 [degF]Vahid Nagy CNP Work Phone: [phone] Work Phone: [phone](052)[phone]0-6591 13:13-0500Body yhecmm66.46 kgVahid Nagy CNP Work Phone: [phone] Work Phone: 1(447)[phone]4-6830 13:13-0500Body izkgrr54.58 kgAijuanito Angelita [facility] Work Phone: [phone] 13:13-0500Diastolic blood kzypmjvo71 mm[Hg] Vahid Nagy [employer] Work Phone: [facility] Work Phone: [phone]([phone]0-0558 13:13-0500Heart rate70 /Kip Nagy CNP Work Phone: [facility] Work Phone: [phone]([phone] [phone] 13:13-0500Respiratory rate20 /Kip Nagy CNP Work Phone: [facility] Work Phone: [phone] 13:13-0500Systolic blood agsjpefw260 mm[Hg] Vahid Nagy [facility] Work Phone: [facility] Work Phone: [phone]([phone]6-0733 10:290500BMI (Body Mass Index)33.73 kg/m2 [facility] 72-539173-87258250-60-9543 10:29-0500Body Hhnsdhbgvwi79.4 [degF][facility] 40-624676-10700874-72-9987 10:29-0500BP Ozarjfwzh03 mm[Hg][facility] 01-810750-35386406-72-9156 10:29-0500BP Lwfhmlnh598 mm[Hg][facility] 18-031667-53598895-33-6020 10:29-0500BSA (Body Surface Area)1.87 m2 [facility] 68-327833-21541475-71-9243 10:294776Kzmjxg513.94 cmAOhio State Health System 75-63 10:29-0500Pulse (Heart Rate)91 /Kip [facility] Work Phone: [phone] 10:29-0500Pulse Qknbylcy85 %Vahid Nagy [facility] Work Phone: [phone] 10:29-0500Respiratory Rate18 /lionelCone Health Women'S Hospitalki [facility] Work Phone: [phone] 10:29-3585Hmawwr27.97 kgBetinaSt. Mary's Medical Center Work Phone: [phone] 08:29-0500BMI (Body Mass Index)33.7 kg/m2 Vahid [facility] Work Phone: [phone] 08:29-0500Body agnnlf523.94 cmAimeki Nagy CNP Work Phone: [facility] Work Phone: [phone] 08:29-0500Body mass index (BMI) [Ratio]33.6 kg/v7MimhqVahid Nagy CNP Work Phone: [facility] Work Phone: [phone] 08:29-0500Body surface area Derived from formula1.8 o6TdhovVahid Nagy CNP Work Phone: [phone] Work Phone: [phone] 08:29-0500Body ogmyxkmpbpn58.4 [degF]Vahid Nagy CNP Work Phone: [facility] Work Phone: [phone] 08:29-0500Body .74 kgVahid Nagy [employer] AD[employer] Work Phone: [facility] Work Phone: [phone] 08:29-0500Body .97 Evelina Nagy [facility] Work Phone: [phone] 08:29-0500Diastolic blood xswiubgi57 mm[Hg] Vahid Nagy CNP Work Phone: [facility] Work Phone: 1([phone])[phone]6-3101 08:29-0500Heart rate91 /Kip Nagy [employer] AD[employer] Work Phone: [facility] Work Phone: [phone] 08:29-0500Respiratory rate18 /Kip Nagy [employer] AD[employer] Work Phone: [facility] Work Phone: [phone] 08:29-0500Systolic blood mmuwuwce656 mm[Hg] Vahid Nagy CNP Work Phone: [facility] Work Phone: [phone]([phone] 16:22-0500BMI (Body Mass Index)33.14 kg/m2 [facility] 42-920851-77238152-84-7129 16:22-0500Body Czwwxoumxct06.5 [degF][facility] 79-895902-84351170-03-0241 16:22-0500BP Wglgdtosu11 mm[Hg][facility] 25-945342-10958378-69-3580 16:22-0500BP Dqsbcqgs048 mm[Hg][facility] 22-222504-57360465-11-3676 16:22-0500BSA (Body Surface Area)1.85 m2 [facility] 63-277870-41336153-42-8623 16:22-9427Ulrmxf394.94 cmAimee [facility] 89-901164-10999276-53-5118 16:22-0500Pulse (Heart Rate)75 /cjw medical centerBetinacoki [facility] 11-12-2018 16:22-0500Pulse Opdfbyew48 %Vahid Angelita [facility] 95-038311-49823172-00-5050 16:22-0500Respiratory Rate20 /minVahid [facility] 66-197840-65134428-44-2971 16:22-8878Cbfvdo52.55 kgSelect [facility] 54-095274-30241635-47-5675 14:22-0500Body kypahw584.94 cmAjoelle Nagy [employer] ADMINISTRATOR Work Phone: [facility] Work Phone: [phone] 14:22-0500Body mass index (BMI) [Ratio]33.1 kg/f5IoohsVahid Nagy [facility] Work Phone: [facility] Work Phone: [phone] 14:22-0500Body surface area Derived from formula1.78 p7UagkjVahid Nagy [facility] Work Phone: [facility] Work Phone: [phone]([phone]5-7167 14:22-0500Body utlocmvuuov21.5 [degF]Vahid Nagy CNP Work Phone: [facility] Work Phone: 1([phone])[phone]1-6661 14:22-0500Body .38 Evelina Nagy CNP Work Phone: [facility] Work Phone: [phone]([phone]3-6650 14:22-0500Body oqdpuy81.55 alizeChildren[facility] of [facility] Work Phone: [phone] 14:22-0500BSA (Body Surface Area)1.79 m2 Vahid [facility] Work Phone: [phone] 14:22-0500Diastolic blood mgmbkqpi20 mm[Hg] Vahid Ngay CNP Work Phone: [facility] Work Phone: [phone] 810-697511-12-2018 14:22-0500Heart rate75 /Kip Nagy CNP Work Phone: [facility] Work Phone: [phone] 982-692111-12-2018 14:-0500Respiratory rate20 /Kip Nagy CNP Work Phone: [facility] Work Phone: 1([phone] 924-649911-12-2018 14:-0500Systolic blood hgiajdmq368 mm[Hg] Vahid Nagy CNP Work Phone: [facility] Work Phone: 1([phone] 923-695010-22-2018 12:-0400BMI (Body Mass Index)33.44 kg/m2 [facility] 96-662593-39204749-75-3079 12:-0400Body Bfrppmnqoyr73.3 [degF][facility] 18-283797-72970428-46-6662 12:01-0400BP Zzofuqtbd98 mm[Hg][facility] 00-839195-91721324-88-5374 12:-0400BP Nclamjjj297 mm[Hg][facility] 19-467900-28497821-74-3725 12:-0400BSA (Body Surface Area)1.86 m2 [facility] 19-785738-52850330-14-8148 12:4430Fbypzd110.94 cmAimee [facility] 16-722522-86080755-69-4205 12:-0400Pulse (Heart Rate)71 /cjw medical centerBetinacoki [facility] 60-266276-03582744-70-3599 12:01-0400Pulse Rrrcayqg10 %[facility] 09-765344-18921316-61-8926 12:8026Gbyxgw75.29 kgAiSt. Mary's Medical Center 10-22-2018 11:01-0400BMI (Body Mass Index)33.44 kg/m2W [facility] Work Phone: [phone] 11:0400Body Ywgojqbcndr48.3 [degF]W [facility] Work Phone: [phone] 11:-0400BP Ppaimorru32 mm[Hg]W [facility] 83-69 11:01-0400BP Bjlxaqax254 mm[Hg]W [facility] 80-23 11:040BSA (Body Surface Area)1.86 m2W [facility] 98-33 11:-1935Vkrgrx126.94 cmW [facility] 55-69 11:01-0400Pulse (Heart Rate)71 /minW [facility] 74-45 11:01-0400Pulse Kqpfqgpx03 %W [facility] 29-67 11:1293Vrtsnk49.29 kgW [facility] 67-47 09:01-0400Body pycauo014.94 cmAkamiki Nagy [employer] ADMIN[employer]RATOR Work Phone: [phone] Work Phone: [phone] 09:01-0400Body mass index (BMI) [Ratio]33.4 kg/l5Pbhpfjuanito Nagy CNP Work Phone: [phone] Work Phone: [phone] 09:01-0400Body surface area Derived from formula1.79 m8Bjlsfjuanito Nagy CNP Work Phone: [phone] Work Phone: [phone] 09:01-0400Body qrisrbpklls53.3 [degF]Vahid Nagy CNP Work Phone: [facility] Work Phone: [phone] 09:01-0400Body .29 kgAijuanito Nagy CNP Work Phone: [facility] Work Phone: [phone] 09:01-0400Diastolic blood bspafcny10 mm[Hg] Vahid Nagy CNP Work Phone: [facility] Work Phone: [phone]([phone]4-5524 09:01-0400Heart rate71 /minVahid Nagy CNP Work Phone: [facility] Work Phone: [phone] 09:01-0400Systolic blood ienclnvx657 mm[Hg] Vahid Nayg CNP Work Phone: [facility] Work Phone: [phone] 12:59-0400BMI (Body Mass Index)33.25 kg/m2 [facility] 89-52 12:59-0400Body Ndgswiczeim78.1 [degF][facility] Work Phone: [phone] 12:59-0400BP Qltiqtnlf68 mm[Hg][facility] Work Phone: [phone] 12:59-0400BP Febvlraf219 mm[Hg][facility] Work Phone: [phone] 12:59-0400BSA (Body Surface Area)1.85 m2 [facility] Work Phone: [phone] 12:59-8032Vhdoly697.94 cmAOhio State Health System Work Phone: [phone] 12:59-0400Pulse (Heart Rate)62 /lionelSelect [facility] Work Phone: [phone] 12:59-0400Pulse Pdubqzxd33 %Vahidchristiano BrewerNov[facility] 78-86 12:59-0400Respiratory Rate20 /[facility] Work Phone: [phone] 12:59-7295Enlxpw97.83 kgSelect [facility] Work Phone: [phone] 11:59-0400BMI (Body Mass Index)33.25 kg/m2 [facility] Work Phone: [phone] 11:59-0400Body Wcvciulxiwd68.1 [degF][facility] Work Phone: [phone] 11:59-0400BP Mprydonxo28 mm[Hg][facility] Work Phone: [phone] 11:59-0400BP Ypypkjtw008 mm[Hg][facility] Work Phone: [phone] 11:59-0400BSA (Body Surface Area)1.85 m2 [facility] Work Phone: [phone] 11:59-8228Fmzxgl656.94 cmAcarolinas continuecare hospital at pinevillee [facility] 95-50 11:59-0400Pulse (Heart Rate)62 /[facility] Work Phone: [phone] 11:59-0400Pulse Cyqhnjgu60 %[facility] 64-99 11:59-0400Respiratory Rate20 /[facility] Work Phone: [phone] 11:59-3124Fjilxv74.83 kgSelect [facility] Work Phone: [phone] 09:59-0400Body vpqjiu303.94 cmAjoelle Nagy CNP Work Phone: [facility] Work Phone: [phone] 09:59-0400Body mass index (BMI) [Ratio]33.3 kg/e7GlwzhVahid Nagy CNP Work Phone: [phone] Work Phone: [phone] 09:59-0400Body surface area Derived from formula1.79 a6Hmsjjjuanito Nagy CNP Work Phone: [phone] Work Phone: [phone] 09:59-0400Body ehdfotvhsgc21.1 [degF]Vahid Nagy CNP Work Phone: [facility] Work Phone: [phone] 09:59-0400Body hjcjis18.83 kgAijuanito Nagy CNP Work Phone: [facility] Work Phone: [phone] 09:59-0400Diastolic blood ohutbkwc50 mm[Hg] Vahid Nagy CNP Work Phone: [phone] Work Phone: [phone] 09:59-0400Heart rate62 /Kip Nagy CNP Work Phone: [phone] Work Phone: [phone] 09:59-0400Respiratory rate20 /Kip Nagy CNP Work Phone: [phone] Work Phone: [phone] 09:59-0400Systolic blood qziugnbk070 mm[Hg] Vahid Nagy CNP Work Phone: [facility] Work Phone: [phone] 13:31-0400BMI (Body Mass Index)32.52 kg/m2 [facility] 56-466983-26890153-67-2696 13:31-0400Body Olbukgtkwgi00 [degF][facility] 86-736292-85078924-46-0061 13:31-0400BP Kmqttprls58 mm[Hg][facility] 26-342440-84623379-69-1737 13:31-0400BP Dfsrvxip695 mm[Hg][facility] 35-354375-21850781-74-0100 13:31-0400BSA (Body Surface Area)1.83 m2 [facility] 76-789330-58672034-52-7342 13:31-3983Ltidfg446.94 [facility] [id number] 13:31-0400Pulse (Heart Rate)70 /[facility] [id number] 13:31-0400Pulse Faxzupps82 %[facility] [id number] 13:31-0400Respiratory Rate18 /[facility] [id number] 13:31-5370Uarwub18.08 kg[facility] [place] [facility] 08-28-2018 12:31-0400BMI (Body Mass Index)32.52 kg/m2 [facility] [id number] 12:31-0400Body Wsoushdamdd43 [degF][facility] [id number] 12:31-0400BP Gofrreuue76 mm[Hg][facility] 08-28-2018 12:31-0400BP Xopvixvm781 mm[Hg][facility] 08-28-2018 12:310BSA (Body Surface Area)1.83 m2 Vahid [facility] Work Phone: [phone] 12:31-6403Teqyvk073.94 Mar [facility] Work Phone: [phone] 12:31-0400Pulse (Heart Rate)70 /[facility] 29-21 12:31-0400Pulse Nxeevcam39 %[facility] Work Phone: [phone] 12:31-0400Respiratory Rate18 /[facility] [place] Work Phone: [phone] 12:311553Nfwjvw09.08 kgC[facility] Health [facility] Hospitalki [facility] Work Phone: [phone] 10:31-0400Body uqwehc822.94 Mar Nagy [facility] Work Phone: [facility] Work Phone: [phone] 10:31-0400Body mass index (BMI) [Ratio]32.5 kg/w2MexxfVahid Nagy CNP Work Phone: [phone] Work Phone: [phone] 10:31-0400Body surface area Derived from formula1.77 q2KegeuVahid Nagy [facility] Work Phone: [phone] Work Phone: [phone] 10:31-0400Body oxrlkmmnjge80 [degF]Vahid Nagy CNP Work Phone: [phone] Work Phone: [phone] 10:31-0400Body .02 kgaVhid Nagy CNP Work Phone: [phone] Work Phone: [phone] 10:31-0400Diastolic blood tokjmozl79 mm[Hg] Vahid Nagy CNP Work Phone: [facility] Work Phone: [phone] 10:31-0400Heart rate70 /Kip Nagy CNP Work Phone: [facility] Work Phone: [phone] 10:31-0400Respiratory rate18 /Kip Nagy TRUST ADMINISTRATOR Work Phone: [facility] Work Phone: [phone] 10:31-0400Systolic blood hfokogus558 mm[Hg] Vahid Nagy CNP Work Phone: [facility] Work Phone: [phone] 12:21-0400BP Xtdaczowh71 mm[Hg][facility] Work Phone: [phone] 12:21-0400BP Pzopiejg225 mm[Hg][facility] Work Phone: [phone] 12:11-0400BMI (Body Mass Index)33.07 kg/m2 [facility] 28-42 12:11-0400Body Fbqrukkngda51.7 [degF][facility] Work Phone: [phone] 12:11-0400BP Diglophoi790 mm[Hg][facility] Work Phone: [phone] 12:11-0400BP Kysvjnlb321 mm[Hg][facility] Work Phone: [phone] 12:11-0BSA (Body Surface Area)1.85 m2 [facility] Work Phone: [phone] 12:112722Slkvny741.94 [facility] Work Phone: [phone] 12:11-0400Pulse (Heart Rate)72 /[facility] Work Phone: [phone] 12:11-0400Pulse Gkjhstjn81 %[facility] Work Phone: [phone] 12:11-0400Respiratory Rate20 /[facility] Work Phone: [phone] 12:11-6117Inhxig98.38 kgAiSt. [facility] Work Phone: [phone] 11:21-0400BP Nbmcyuloy97 mm[Hg][facility] Work Phone: [phone] 11:21-0400BP Mzsembxu293 mm[Hg][facility] Work Phone: [phone] 11:11-0400BMI (Body Mass Index)33.07 kg/m2 [facility] Work Phone: [phone] 11:11-0400Body Qgbfmznmrzh09.7 [degF][facility] Work Phone: [phone] 11:11-0400BP Mlbkzcleb472 mm[Hg][facility] Work Phone: [phone] 11:11-0400BP Whxfvkfv154 mm[Hg][facility] Work Phone: [phone] 11:110400BSA (Body Surface Area)1.85 m2 [facility] Work Phone: [phone] 11:119078Dubsxh734.94 cmAcarolinas continuecare hospital at pinevillee [facility] Work Phone: [phone] 11:110400Pulse (Heart Rate)72 /[facility] Work Phone: [phone] 11:11-0400Pulse Jxodtwyn71 %Vahid Angelita [facility] Work Phone: [phone] 11:11-0400Respiratory Rate20 /minVahid [facility] 55-12 11:116988Yppgou14.38 kgC[facility] Health Women'[facility] Hospitalki [facility] 60-19 09:21-0400Diastolic blood iwcsfwzl71 mm[Hg] Vahid Nagy [facility] Work Phone: [phone] Work Phone: [phone] 09:21040Systolic blood hjzhwadw211 mm[Hg] Vahid Nagy [facility] Work Phone: [phone] Work Phone: [phone] 09:11-0400Body draahk300.94 cmAimeki aNgy [employer]UST ADMINISTRATOR Work Phone: [phone] Work Phone: [phone] 09:11-0400Body mass index (BMI) [Ratio]33.1 kg/x9OygrsVahid Nagy [facility] Work Phone: [phone] Work Phone: [phone] 09:11-0400Body surface area Derived from formula1.78 v8NwslyVahid Nagy CNP Work Phone: [phone] Work Phone: [phone] 09:110400Body katopdfuwzx11.7 [degF]Vahid Nagy CNP Work Phone: [phone] Work Phone: [phone] 09:110400Body qelynz24.38 kgVahid Nagy TRUST ADMINISTRATOR Work Phone: [phone] Work Phone: [phone] 09:11-0400Diastolic blood mm[Hg]Vahid Nayg [employer]UST ADMINISTRATOR Work Phone: [phone] Work Phone: [phone] 09:11-0400Heart rate72 /Kip Nagy TRUST ADMINISTRATOR Work Phone: [facility] Work Phone: [phone] 09:11-0400Respiratory rate20 /Kip Nagy TRUST ADMINISTRATOR Work Phone: [facility] Work Phone: [phone] 09:11-0400Systolic blood xvnolaoc909 mm[Hg] Vahid Nagy CNP Work Phone: [facility] Work Phone: [phone] 17:33-0400BMI (Body Mass Index)34.98 kg/m2 [facility] 57-288242-45532010-28-3790 17:33-0400Body Hmhwqfmgerv65.7 [degF][facility] 62-344839-52896135-08-0944 17:33-0400BP Nvjbzeecv38 mm[Hg][facility] 07-12-2018 17:33-0400BP Kymdemhm400 mm[Hg][facility] 40-014373-11757020-18-4776 17:33-0400BSA (Body Surface Area)1.9 d4PhlhgSt. Mary's Medical Center 92-735112-78804121-80-6581 17:33-6290Awopfa698.94 cmAimee [facility] 07-12-2018 17:33-0400Pulse (Heart Rate)80 /[facility] 97-240358-33177576-92-0187 17:33-0400Pulse Zziihytm19 %[facility] 07-12-2018 17:33-0400Respiratory Rate20 /Mariancoe [facility] Work Phone: ([phone]) 17:33-2636Wnzfch58.97 alizejuanito BrewerHealth[facility] Work Phone: [phone] 16:33-0400BMI (Body Mass Index)34.98 kg/m2 [facility] Work Phone: [phone] 16:33-0400Body Zhlgczhhnjb83.7 [degF][facility] Work Phone: [phone] 16:33-0400BP Agpyjplex12 mm[Hg][facility] Work Phone: [phone] 16:33-0400BP Mshgtdfi217 mm[Hg][facility] 23-62 16:33-0400BSA (Body Surface Area)1.9 m2[facility] 03-12 16:33-8542Tudkzi787.94 cmLukki [facility] 60-84 16:33-0400Pulse (Heart Rate)80 /minGood [facility] 01-86 16:33-0400Pulse Edurlivc32 %[facility] Work Phone: [phone] 16:33-0400Respiratory Rate20 /min[facility] Work Phone: [phone] 16:33-5864Vtrqet21.97 kgGood [facility]aritan [facility] Work Phone: [phone] 14:33-0400Body oyvwwu485.94 Teresaki Nagy CNP Work Phone: [facility] Work Phone: [phone] 14:33-0400Body mass index (BMI) [Ratio]35 kg/u8MjyhgVahid Nagy CNP Work Phone: [facility] Work Phone: [phone] 14:33-0400Body surface area Derived from formula1.83 x8Popwrjuanito Nagy CNP Work Phone: [facility] Work Phone: [phone] 14:33-0400Body yooichhzwyr44.7 [degF]Vahid Nagy CNP Work Phone: [phone] Work Phone: [phone] 14:33-0400Body wsufkc12.92 kgAijuanito Nagy CNP Work Phone: [facility] Work Phone: [phone] 14:33-0400Diastolic blood ykjpzlpr18 mm[Hg] Vahid Nagy CNP Work Phone: [facility] Work Phone: [phone] 14:33-0400Heart rate80 /minVahid Nagy CNP Work Phone: [phone] Work Phone: [phone] 14:33-0400Respiratory rate20 /Kip Nagy CNP Work Phone: [facility] Work Phone: [phone] 14:33-0400Systolic blood xzfccuuq215 mm[Hg] Vahid Nagy CNP Work Phone: [facility] Work Phone: [phone] [phone] 12:54-0400BMI (Body Mass Index)35.05 kg/m2 [facility] 17-068731-02370667-15-4705 12:54-0400Body Lmflfhnfian64 [degF][facility] 49-803064-05706260-49-8877 12:54-0400BP Comtczdoa67 mm[Hg][facility] 75-002431-15707199-65-0550 12:54-0400BP Qtegotuo377 mm[Hg][facility] 02-419274-20838579-48-8078 12:54-0400BSA (Body Surface Area)1.9 h8Gocdx [facility] Work Phone: [phone] 12:54-2639Hayvfl187.94 cmAimee [facility] 94-059374-12166428-07-6977 12:54-0400Pulse (Heart Rate)72 /minCone Health Women'S Hospitalki [facility] Work Phone: [phone] 12:54-0400Pulse Nrjdateo73 %Vahid [facility] 33-230992-53130525-08-2934 12:54-0400Respiratory Rate18 /[facility] 71-293497-84305603-38-8309 12:54-7661Kyxpwj82.14 kgAicoki [facility] Work Phone: [phone] 11:54-0400BMI (Body Mass Index)35.05 kg/m2 [facility] 41-250606-21386657-25-5535 11:54-0400Body Mrxlatsvmtu19 [degF][facility] 61-531063-39860216-12-1999 11:54-0400BP Lyuyaopdv62 mm[Hg][facility] 62-387902-17016511-92-8637 11:54-0400BP Idswchzd555 mm[Hg][facility] 95-250897-36693745-61-4163 11:54-0400BSA (Body Surface Area)1.9 m2 [facility] 83-116705-86546189-72-9304 11:54-7117Pytltc349.94 cmSjeane Grimaldo [facility] 16-881546-21043601-78-4810 11:54-0400Pulse (Heart Rate)72 /minSjeane [facility]doWest[facility] 28-526389-80488526-87-5464 11:54-0400Pulse Sldfjkwq15 %Zach Grimaldo [facility] 21-59 11:54-0400Respiratory Rate18 /minSjeane [facility]doWest[facility] 35-97 11:54-1173Ayuwtd20.14 kgZach Grimaldo [facility] 55-68 09:54-0400Body qnughm710.94 cmAimeki Nagy CNP Work Phone: [phone] Work Phone: [phone] 09:54-0400Body mass index (BMI) [Ratio]35 kg/r4OzwkqVahid Nagy CNP Work Phone: [phone] Work Phone: [phone] 09:54-0400Body surface area Derived from formula1.83 x0YsgmjVahid Nagy CNP Work Phone: [phone] Work Phone: [phone] 09:54-0400Body cabncjbahpa52 [degF]Vahid Nagy CNP Work Phone: [phone] Work Phone: [phone] 09:54-0400Body lkacxf85.92 kgVahid Nagy CNP Work Phone: [phone] Work Phone: [phone] 09:54-0400Diastolic blood vhefjihj03 mm[Hg] Vahid Nagy CNP Work Phone: [phone] Work Phone: [phone] 09:54-0400Heart rate72 /Kip Nagy CNP Work Phone: [phone] Work Phone: [phone] 09:54-0400Respiratory rate18 /Kip Nagy CNP Work Phone: [phone] Work Phone: [phone] 09:54-0400Systolic blood faocuffw682 mm[Hg] Vahid Nagy [facility] Work Phone: [facility] Work Phone: [phone] 12:55-0400BMI (Body Mass Index)35.36 kg/m2 [facility] Work Phone: [phone] 12:55-0400Body Yghpcfhafnr09.7 [degF][facility] Work Phone: [phone] 12:55-0400BP Exdqqakrk66 mm[Hg][facility] Work Phone: [phone] 12:55-0400BP Aebvsoli365 mm[Hg][facility] Work Phone: [phone] 12:55-0400BSA (Body Surface Area)1.91 m2 [facility] Work Phone: [phone] 12:55-7854Pygofc809.94 cmAimeArkansas State Psychiatric Hospital 99-427431-38574473-30-1420 12:55-0400Pulse (Heart Rate)77 /[facility] Work Phone: [phone] 12:55-0400Pulse Xcftuiif07 %[facility] Work Phone: [phone] 12:55-0400Respiratory Rate18 /[facility] Work Phone: [phone] 12:55-3086Kzeadi27.88 kgSelect [facility] 20-830603-76668436-66-3825 11:55-0400BMI (Body Mass Index)35.36 kg/m2 Zachernestina [facility] 25-825766-78750742-89-1518 11:55-0400Body Gsqwalojwxr11.7 [degF][facility] 05-18-2018 11:55-0400BP Iwjzqcier09 mm[Hg][facility] 80-30 11:55-0400BP Lbpaxzrt909 mm[Hg][facility] 16-94 11:55-0400BSA (Body Surface Area)1.91 m2 [facility] 93-61 11:55-6148Ymlahn296.94 cmSjeane [facility] 20-60 11:55-0400Pulse (Heart Rate)77 /Lise [facility] 16-55 11:55-0400Pulse Mbynahae69 %Zach [facility] 61-23 11:55-0400Respiratory Rate18 /Lise [facility] 76-44 11:55-3958Bzbwwe36.88 kgZach Grimaldo [facility] 21-00 09:55-0400Body vfsedc158.94 Silviajoelle Nagy CNP Work Phone: [phone] Work Phone: [phone] 09:55-0400Body mass index (BMI) [Ratio]35.3 kg/v1Vrbjajuanito Nagy CNP Work Phone: [phone] Work Phone: [phone] 09:55-0400Body surface area Derived from formula1.84 h8Wgyzqjuanito Nagy CNP Work Phone: [phone] Work Phone: [phone] 09:55-0400Body ztlppvjarsu09.7 [degF]Vahidchristiano Nagy CNP Work Phone: [phone] Work Phone: [phone] 09:55-0400Body xbkcza90.82 kgAijuanito Nagy CNP Work Phone: [facility] Work Phone: [phone] 09:55-0400Diastolic blood rwbwkyvu94 mm[Hg] Vahid Nagy CNP Work Phone: [facility] Work Phone: [phone] 09:55-0400Heart rate77 /Kip Nagy CNP Work Phone: [facility] Work Phone: [phone] 09:55-0400Respiratory rate18 /Kip Nagy CNP Work Phone: [facility] Work Phone: [phone] 09:55-0400Systolic blood ftfijvtp675 mm[Hg] Vahid Nagy CNP Work Phone: [facility] Work Phone: [phone] 12:55-0400BMI (Body Mass Index)35.55 kg/m2 [facility] Work Phone: [phone] 12:55-0400Body Nvydkjuuorl43.2 [degF][facility] Work Phone: [phone] 12:55-0400BP Qdbthkenz91 mm[Hg][facility] Work Phone: [phone] 12:55-0400BP Luanikcd284 mm[Hg][facility] Work Phone: [phone] 12:55-0400BSA (Body Surface Area)1.92 m2 [facility] 32-43 12:55-8758Ecfpfl641.94 cmAimeArkansas State Psychiatric [facility] Work Phone: [phone] 12:55-0400Pulse (Heart Rate)82 /minAimee [facility] Work Phone: [phone] 12:55-0400Pulse Lmpxyuhm05 %Vahid Angelita [facility] Work Phone: [phone] 12:55-0400Respiratory Rate18 /Kip [facility] Work Phone: [phone] 12:55-7778Rqcjol96.33 Evelina [facility] Work Phone: [phone] 11:55-0400BMI (Body Mass Index)35.55 kg/m2 [facility] Work Phone: [phone] 11:55-0400Body Eiopfmklitg65.2 [degF][facility] Work Phone: [phone] 11:55-0400BP Uxudjzzfa63 mm[Hg][facility] Work Phone: [phone] 11:55-0400BP Wgvxovxp078 mm[Hg][facility] Work Phone: [phone] 11:55-0400BSA (Body Surface Area)1.92 m2 [facility] 09-844500-70518947-28-7708 11:55-6208Vzpcgy245.94 cmSjeane [facility] Work Phone: [phone] 11:55-0400Pulse (Heart Rate)82 /minSjeane [facility] 04-080140-09978721-21-7779 11:55-0400Pulse Nqbjozcv98 %Zach Grimaldo [facility] Work Phone: [phone] 11:55-0400Respiratory Rate18 /Lise [facility] 84-420422-95631869-59-0736 11:55-4262Alajyr21.33 alizeshirley Grimaldo [facility] 06-927216-98910098-40-6434 09:55-0400Body bjfjye612.94 Silviajoelle Nagy CNP Work Phone: [facility] Work Phone: [phone] 09:55-0400Body mass index (BMI) [Ratio]35.5 kg/m7NwxaiVahid Nagy CNP Work Phone: [phone] Work Phone: [phone] 09:55-0400Body surface area Derived from formula1.84 z6Xfskvjuanito Nagy CNP Work Phone: [facility] Work Phone: [phone] 09:55-0400Body nvnlhuqhlel91.2 [degF]Vahid Nagy CNP Work Phone: [facility] Work Phone: [phone] 09:55-0400Body gqkbbu31.28 kgAijuanito Nagy CNP Work Phone: [phone] Work Phone: [phone] 09:55-0400Diastolic blood bxjafpyb51 mm[Hg] Vahid Nagy CNP Work Phone: [phone] Work Phone: [phone] 09:55-0400Heart rate82 /Kip Nagy CNP Work Phone: [phone] Work Phone: [phone] 09:55-0400Respiratory rate18 /Kip Nagy CNP Work Phone: [facility] Work Phone: [phone] 09:55-0400Systolic blood nrqpyjrn310 mm[Hg] Vahid Nagy CNP Work Phone: [facility] Work Phone: [phone] 14:54-0400BMI (Body Mass Index)35.33 kg/m2 [facility]id [facility] Work Phone: [phone] 14:54-0400Body Ngjstabdzul14.1 [degF][facility] Work Phone: [phone] 14:54-0400BP Mpquhxkpg02 mm[Hg][facility] 22-27 14:54-0400BP Spvykwlw210 mm[Hg][facility] 03-40 14:54-0400BSA (Body Surface Area)1.91 m2 [facility] 82-16 14:54-4510Cnkifh281.94 cmAimee [facility] 71-04 14:54-0400Pulse (Heart Rate)69 /[facility] 62-42 14:54-0400Pulse Rxzwyewo36 %[facility] 04-04 14:54-0400Respiratory Rate20 /[facility] 10-56 14:54-8651Swxrym56.82 kg[facility] 89-59 13:54-0400BMI (Body Mass Index)35.33 kg/m2 [facility] 51-57 13:54-0400Body Lbmlfsbhkxb26.1 [degF][facility] 17-77 13:54-0400BP Mkcbehugu67 mm[Hg][facility]an[facility] 77-64 13:54-0400BP Ivwtvsrn159 mm[Hg][facility] 05-71 13:54-0400BSA (Body Surface Area)1.91 m2 [facility] Work Phone: [phone] 13:54-4197Iuzkfy337.94 cmSjeane [facility] 69-40 13:54-0400Pulse (Heart Rate)69 /Lise [facility] 30-50 13:54-0400Pulse Fojgwili21 %Zach Grimaldo [facility] 16-84 13:54-0400Respiratory Rate20 /Lise [facility] 54-07 13:54-8178Wpqcrk64.82 kgZach Grimaldo [facility] 36-17 11:54-0400Body hubcaz778.94 Mar Nagy CNP Work Phone: [phone] Work Phone: [phone] 11:54-0400Body mass index (BMI) [Ratio]35.3 kg/v3CnhslVahid Nagy CNP Work Phone: [phone] Work Phone: [phone] 11:54-0400Body surface area Derived from formula1.84 k6MzsheVahid Nagy CNP Work Phone: [phone] Work Phone: [phone] 11:54-0400Body cxvythbudbg12.1 [degF]Vahid Nagy CNP Work Phone: [phone] Work Phone: [phone] 11:54-0400Body luwtus17.82 kgVahid Nagy CNP Work Phone: [phone] Work Phone: [phone] 11:54-0400Diastolic blood bzualypv00 mm[Hg] Vahid Nagy CNP Work Phone: [phone] Work Phone: [phone] 11:54-0400Heart rate69 /Kip Nagy CNP Work Phone: [facility] Work Phone: [phone] 702-820904-30-2018 11:54-0400Respiratory rate20 /Kip Nagy CNP Work Phone: [facility] Work Phone: [phone] 245-427904-30-2018 11:54-0400Systolic blood ohieaytb318 mm[Hg] Vahid Nagy CNP Work Phone: [facility] Work Phone: [phone] 210-687211-17-2017 15:36-0500BMI (Body Mass Index)39.32 kg/m2 [facility] 11-17-2017 15:36-0500Body Lygonkyuzkd57.3 [degF][facility] 11-17-2017 15:36-0500BP Wzgmimugm27 mm[Hg][facility] 11-17-2017 15:36-0500BP Lralsukd346 mm[Hg][facility] 82-048690-06964452-16-2873 15:36-0500BSA (Body Surface Area)2.02 m2 [facility] 11-17-2017 15:36-4998Euojio986.94 cmAimee [facility] 11-17-2017 15:36-0500Pulse (Heart Rate)78 /[facility] 11-17-2017 15:36-0500Pulse Twttfytw97 %[facility] 11-17-2017 15:36-0500Respiratory Rate22 /[facility] centerBetinacoki [facility] 11-17-2017 15:36-8733Ujxtam28.41 [facility]ina [facility] 69-706909-86303365-78-9423 14:36-0500BMI (Body Mass Index)39.32 kg/m2 [facility] 05-335767-46783862-38-6884 14:36-0500Body Pgqokubmqwf23.3 [degF][facility] 18-483678-09560405-26-9933 14:36-0500BP Rhmmefeup24 mm[Hg][facility] 11-17-2017 14:36-0500BP Cysnbubs228 mm[Hg][facility] 11-17-2017 14:36-0500BSA (Body Surface Area)2.02 m2 [facility] 11-17-2017 14:36-9212Sqxodf478.94 cmSjeane [facility] 09-395503-49655419-18-6771 14:36-0500Pulse (Heart Rate)78 /[facility] 11-17-2017 14:36-0500Pulse Rwvkvvpl81 %Zach [facility] 11-17-2017 14:36-0500Respiratory Rate22 /minSjeane [facility] 11-17-2017 14:36-5188Ysimod41.41 Deb Grimaldo [facility] 10-17-2017 13:35-0400BMI (Body Mass Index)40.08 kg/m2 Vahid [facility] 10-17-2017 13:35-0400Body Tolbghyigba95.8 [degF][facility] 10-17-2017 13:35-0400BP Whzhbnbqy33 mm[Hg][facility] 10-17-2017 13:35-0400BP Pthxhrnm588 mm[Hg][facility] [phone] 13:35-0400BSA (Body Surface Area)2.04 m2 [facility] 10-17-2017 13:35-0400BSA (Body Surface Area)2.03 m2 [facility] 10-17-2017 13:35-8542Hpepxf730.94 cmAimee [facility] 10-17-2017 13:35-0400Pulse (Heart Rate)73 /[facility] 10-17-2017 13:35-0400Pulse Dzgaxbry01 %[facility] 10-17-2017 13:35-0400Respiratory Rate20 /[facility] 10-17-2017 13:35-7685Xqvehg21.22 [facility]-2017 12:35-0400BMI (Body Mass Index)40.08 kg/m2 [facility] [phone] 12:35-0400Body Zkvovgtnzxv37.8 [degF][facility] 10-17-2017 12:35-0400BP Ypwxfndyy32 mm[Hg][facility] 10-17-2017 12:35-0400BP Kgcoipeq189 mm[Hg][facility] 10-17-2017 12:35-0400BSA (Body Surface Area)2.04 m2 [facility] 10-17-2017 12:35-0400BSA (Body Surface Area)2.03 m2 [facility] [phone] 12:35-8885Fovghk049.94 cmSjeane [facility] [phone] 12:35-0400Pulse (Heart Rate)73 /minSjeane [facility] [phone] 12:35-0400Pulse Hfvkfomf70 %Zach Grimaldo [facility] 10-17-2017 12:35-0400Respiratory Rate20 /[facility] [id number] 12:35-5506Rsiswi22.22 kgStshirley [facility] 25-513341-85219386-28-5498 13:31-0400BMI (Body Mass Index)39.16 kg/m2 [facility] 53-701313-83998610-51-7971 13:31-0400Body Cfsumxkcxtx88.9 [degF][facility] Work Phone: [phone] 13:31-0400BP Zqhsahfrj43 mm[Hg][facility] Work Phone: [phone] 13:31-0400BP Gkdzzzwz856 mm[Hg][facility] 39-182077-54878404-99-4764 13:31-0400BSA (Body Surface Area)2.01 m2 [facility] 81-359331-61638831-76-8820 13:31-8782Klprbu655.94 cmAimee [facility] 62-622537-40092247-17-2329 13:31-0400Pulse (Heart Rate)72 /minAimee [facility] Work Phone: [phone] 13:31-0400Pulse Ewdagpug34 %Vahid Nagy [facility] Work Phone: [phone] 13:31-0400Respiratory Rate22 /lioneljuanito [facility] Work Phone: [phone] 13:1014Jrtxjm13.01 Evelina [facility] Work Phone: [phone] 12:31-0400BMI (Body Mass Index)39.16 kg/m2 [facility] Work Phone: [phone] 12:31-0400Body Wlpjlgmsdga92.9 [degF][facility] Work Phone: [phone] 12:31-0400BP Cixdfvufa02 mm[Hg][facility] 57-97 12:31-0400BP Mrasovwy329 mm[Hg][facility] Work Phone: [phone] 12:31-0BSA (Body Surface Area)2.01 m2 [facility] Work Phone: [phone] 12:31-9302Ajycyf381.94 cmSjeane [facility] Work Phone: [phone] 12:310Pulse (Heart Rate)72 /minSjeane [facility] Work Phone: [phone] 12:31-0400Pulse Ncrgaddq07 %Zach Grimaldo [facility] Work Phone: [phone] 12:310400Respiratory Rate22 /Lise [facility] Work Phone: [phone] 12:317064Dymgxb16.01 Deb Grimaldo [facility] 81-514150-77376115-13-8849 11:14-0500BMI (Body Mass Index)40.32 kg/m2 [facility] 43-391318-23652445-89-0568 11:14-0500Body Ezttchwnmdp74 [degF][facility] 00-650491-20075614-24-9550 11:14-0500BP Ggvrayece91 mm[Hg][facility] 40-760170-40310191-00-2137 11:14-0500BP Mzvtftva596 mm[Hg][facility] 40-596935-56092206-04-7083 11:14-0500BSA (Body Surface Area)2.04 m2 [facility] 47-244533-78151750-89-9584 11:14-3495Wtsjbw392.94 cmAimeAr[facility] 65-876799-17863944-96-4029 11:14-0500Pulse (Heart Rate)86 /min[facility] 22-681089-63148057-48-3703 11:14-0500Pulse Utredrsh57 %[facility] 11-818447-33444620-78-8724 11:14-0135Keuhwq43.79 kg[facility] 03-022861-69453077-13-5698 10:14-0500BMI (Body Mass Index)40.32 kg/m2 [facility] 41-636385-15410682-42-2582 10:14-0500Body Xefqrruuozd28 [degF]Zachernestina [facility] 17-047765-74905063-21-1071 10:14-0500BP Xkzkmgaer16 mm[Hg]Zachernestina [facility] 32-214833-61830658-81-3561 10:14-0500BP Yfivglrs908 mm[Hg]Zachernestina [facility] 17-345059-41340540-90-7108 10:14-0500BSA (Body Surface Area)2.04 m2 [facility] 99-465381-24324333-52-1369 10:140162Syzynj529.94 cmSteven [facility] 37-080624-01376849-54-2511 10:14-0500Pulse (Heart Rate)86 /minSjeane [facility] 53-179160-22541115-42-4620 10:14-0500Pulse Vahxiqps43 %Zach [facility] 28-300922-62761591-76-9014 10:14-6731Aukhfm68.79 kgStshirley Grimaldo [facility] 12-11-2015 12:30-0500BMI (Body Mass Index)40.53 kg/m2 [facility] 12-11-2015 12:30-0500Body Qihsibzwuzh52.1 [degF][facility] 12-11-2015 12:30-0500BP Uvxmhzrtr58 mm[Hg][facility] 12-11-2015 12:30-0500BP Lvqtsjjl736 mm[Hg][facility] 12-11-2015 12:30-0500BSA (Body Surface Area)2.05 m2 [facility] 12-11-2015 12:30-1510Sxqpux314.94 cmAimee [facility] 12-11-2015 12:30-0500Pulse (Heart Rate)82 /[facility] 12-11-2015 12:30-0500Respiratory Rate18 /[facility] 12-11-2015 12:30-5271Ithzlv74.3 kg[facility] 12-11-2015 11:30-0500BMI (Body Mass Index)40.53 kg/m2 [facility] 18-724024-83617004-76-5905 11:30-0500Body Vyorsstyybx85.1 [degF][facility] 74-63823582-09-0363 11:30-0500BP Idhljeeas73 mm[Hg][facility] 72-929658-49353835-18-5059 11:30-0500BP Vtoezajc518 mm[Hg][facility] 12-11-2015 11:30-0500BSA (Body Surface Area)2.05 m2 [facility] 12-11-2015 11:30-2529Atdpjk879.94 cmSjeane [facility] 13-234416-01950017-70-2244 11:30-0500Pulse (Heart Rate)82 /[facility]ane [facility] 10-440797-13043104-31-7930 11:30-0500Respiratory Rate18 /[facility] 53-12243960-75-8815 11:30-5882Fblenr72.3 kgStshirley [facility] 11-12-2015 11:50-0500BP Sidxflftm97 mm[Hg]Vahid [facility] 11-12-2015 11:50-0500BP Qpfnbzpj982 mm[Hg][facility] 11-12-2015 11:50-0500Pulse (Heart Rate)85 /lionelChristoki [facility] 11-12-2015 11:34-0500BMI (Body Mass Index)39.77 kg/m2 [facility] 41-52 11:34-0500Body Bkleezovaxn76 [degF][facility] 28-398512-63393137-51-5280 11:34-0500BP Hhigngivg27 mm[Hg][facility] 11-12-2015 11:34-0500BP Puxgywht805 mm[Hg][facility] 11-12-2015 11:34-0500BSA (Body Surface Area)2.03 m2 [facility] 11-12-2015 11:34-1226Wanici957.94 cmAcarolinas continuecare hospital at pinevilleki [facility] 08-690219-74665154-08-3782 11:34-0500Pulse (Heart Rate)88 /minSelect [facility] 11-12-2015 11:34-0500Pulse Bbldjwxw56 %[facility] 43-562938-81087624-18-1979 11:34-0500Respiratory Rate18 /[facility] 16-442436-96281699-36-8108 11:34-1199Muyzcn49.48 kg[facility] 11-12-2015 10:50-0500BP Pzhvjhgwy12 mm[Hg][facility] 45-710293-32592043-68-1706 10:50-0500BP Bjozzqqk990 mm[Hg][facility] 11-12-2015 10:50-0500Pulse (Heart Rate)85 /minStenathalie [facility]illanWestwood [facility] 11-12-2015 10:34-0500BMI (Body Mass Index)39.77 kg/m2 Zach [facility] 11-12-2015 10:34-0500Body Myedveoehtr86 [degF][facility] 11-12-2015 10:34-0500BP Mxuzyuwdh44 mm[Hg][facility] 11-12-2015 10:34-0500BP Qnqkkqnh649 mm[Hg][facility] 11-12-2015 10:34-0500BSA (Body Surface Area)2.03 m2 [facility] 11-12-2015 10:34-4063Htctkw935.94 cmSjeane [facility] 11-12-2015 10:34-0500Pulse (Heart Rate)88 /[facility] 11-12-2015 10:34-0500Pulse Muoluunh89 %Zach [facility] 11-12-2015 10:34-0500Respiratory Rate18 /Lise [facility] 11-12-2015 10:34-6733Mmjmcs63.48 kgStshirley Grimaldo [facility] Encounters Encounter DateEncounter TypeCare ProviderFacilityStart: 01-14-2025 End: 55-24-1326Zunfmv flowsheetSteven A Rusher DPM Work Phone: [facility] PodiatryStart: 01-14-2025 End: 88-85-1025Qzgbea flowsheetSteven A Rusher DPM Work Phone: [facility] PodiatryStart: 01-13-2025 End: 23-54-5565urncytewfkYPLHHY [facility]ertart: 01-05-2025 End: 82-55-3939Heknyvdtk department patient visitSTEFirelands Regional Medical Center South Campustart: 01-04-2025 End: 16-61-4923nnflshakybCCIYKR [facility] HospitalStart: 01-01-2025 End: 30-71-8734odqoulwmaaXPBTENMount Carmel Health System HospitalStart: 12-30-2024 End: 92-03-6863Zwxhzhpjtb and management of inpatientSalexandrorebel Lane Jerica DO Work Phone: [facility] Comment on above:Acute cystitis without hematuria (Primary Dx); HypoxiaStart: 12-21-2024 End: 79-44-7394Ismwhxpru encounterVik Vargas NP Work Phone: [facility] HospitalnceStart: 12-13-2024 End: 28-71-1234Xyateqhebi and management of inpatientSTEEast [facility] Center HospitalStart: 12-08-2024 End: 51-11-1184Dmlkswzxedtri procedureStenathalie Saravia DPM Work Phone: [facility] Surgeons [facility] InStart: 12-05-2024 End: 63-02-2305Gmymeqlesb and management of inpatientSTEEast [facility] Center HospitalStart: 11-19-2024 End: 46-65-8228Atymfoawq department patient visitSMARIA ELENA [place] [facility] DepartmentComment on above:Chronic right hip pain (Primary Dx); Open wound of foot excluding toes; Chronic right hip pain; Lumbar back pain with radiculopathy affecting right lower extremity; Chronic left hip pain; Chronic pain syndrome; Sacral painStart: 10-22-2024 End: 60-06-1814Gztwrucaqh and management of inpatientMARK W Pedro [place] HospitalStart: 99-48-5824isrxzgucrxNYAUQPAllendale County Hospital HospitalStart: 09-03-2024 End: 27-16-2281gyzkbjugrjBBBULKBronson LakeView Hospital HospitalStart: 09-03-2024 End: 52-15-0535Stxzxbisgw hospital visit by physicianSmaria elena Rodriguez MD Work Phone: [facility] LABStart: 08-12-2024 End: 10-67-9098Lkaqnhecxl and management of inpatientSmaria elena Rodriguez MD Work Phone: mthz [facility] MED SURGComment on above:Open wound of foot excluding toes (Primary Dx); Open wound of toe, initial encounter; PVD (peripheral vascular disease) with claudication; Unable to care for self; Chronic right hip pain; Lumbar back pain with radiculopathy affecting right lower extremity; Chronic left hip pain; Chronic pain syndromeStart: 08-07-2024 End: 48-79-1852Aftklonlm encounterProeast al[facility] Medication Management Work Phone: [facility] Medication ManagementStart: 08-06-2024 End: 92-58-8223Xgpidcoxwz and management of inpatientSmaria elena Rodriguez MD Work Phone: mthz [facility] MED SURGComment on above:Claudication in peripheral vascular disease (Primary Dx); PAD (peripheral artery disease); Ulcer of both feet with fat layer exposed (HCC); Oxygen dependent - 2L per baseline; Cellulitis of lower extremity, unspecified laterality; Fall, subsequent encounterStart: 07-27-2024 End: 48-48-5618igfgmvewnpQSVMDN [facility] Centertart: 07-24-2024 End: 84-27-1110Cqotllhkq department patient visitSMemorial Hospitaltart: 07-17-2024 End: 15-44-4255Iqfrllrje encounterCatAultman Hospital Pharmacy Medication ManagementStart: 07-13-2024 End: 91-05-2123Kzfpkbxhzj and management of inpatientSMemorial Hospitaltart: 05-16-2024 End: 18-86-7809Yrqwzkatv department patient visitSMemorial Hospitaltart: 04-17-2024 End: 62-38-1315Yuhmup OnlyRebeca Johnson MD Work Phone: [facility] Surgeons Sign InStart: 04-17-2024 End: 09-88-0786Lxntfoanen and management of inpatientSMercy Health Fairfield Hospitaltart: 04-16-2024 End: 52-23-7895Itdfknyvv department patient visitSGUSTAVO RODRIGUEZTuscarawas Hospital HospitalStart: 03-27-2024 End: 09-59-8337Uscuecpwc department patient visitSTECOBALT REHABILITATION ([facility]OSPITAL JENNIFERTuscarawas Hospital HospitalStart: 03-18-2024 End: 60-67-7431Wlrxtmsjn department patient visitSPROMEDICA F[facility] JENNIFERTuscarawas Hospital HospitalStart: 49-77-2028Teg-patient / Non-visitDO Carlo Grimaldo Work Phone: [facility] Work Phone: Start: 26-96-1902Xhk-patient / Non-visitDO Carlosandee Grimaldo Work Phone: [facility] Pul[facility] Disease Work Phone: Start: 01-19-2024 End: 13-42-6674Xhghskwpsx and management of inpatientDO Carlo Grimaldo Work Phone: [facility] [place] [facility] Work Phone: Start: 01-14-2024 End: 44-40-5524Rqqcog Aleida Vallejo [facility] HOSPITALProMedica Physicians Digestive HealthcareComment on above:Gastrointestinal hemorrhage, unspecified gastrointestinal hemorrhage type (Primary Dx); Chronic gastrointestinal hemorrhage; Gastric ulcer without hemorrhage or perforation, unspecified chronicityStart: 01-13-2024 End: 95-65-6947Ranbnvnqy Mateo DWYERAProMedbenedicto Physicians Digestive HealthcareComment on above:Hospital Follow-upStart: 01-02-2024 End: 10-70-1073Wmwfgycyq department patient visitGERBER Calixto [place] HospitalStart: 11-27-2023 End: 06-01-0894quisezupbeWMXQHC IACOBMercy [place] HospitalStart: 11-11-2023 End: 07-11-2156Fwloqxenfb hospital visit by Layne Rodriguez MD Work Phone: [facility] RadiologyStart: 12-13-2022 End: 06-69-2309Vrlznttqme and management of [facility][note 3]INNA MARIEE [facility] Hospitaltart: 08-13-2022 End: 36-00-8308Mskrsedikz hospital visit by Layne Rodriguez MD Work Phone: mthz LaboratoryComment on above:Chronic obstructive pulmonary disease, unspecified COPD type (HCC); Chronic right hip pain; Sacral pain; Lumbar back pain with radiculopathy affecting right lower extremity; Chronic left hip painStart: 07-29-2022 End: 89-43-6418Mfrnzfvrd department patient visitSmaria elena Rodriguez MD Work Phone: [facility] EDComment on above:Coccyx pain (Primary Dx)Start: 07-26-2022 End: 74-20-9653Gbrksuabsw hospital visit by Layne Rodriguez MD Work Phone: mthz LaboratoryComment on above:Primary hypertension; Lipid screening; Hypothyroidism, unspecified type; Hyperglycemia; Chronic obstructive pulmonary disease, unspecified COPD type (HCC); Chronic right hip pain; Sacral pain; Lumbar back pain with radiculopathy affecting right lower extremity; Chronic left hip pain; Chronic pain syndromeStart: 07-21-2022 End: 59-87-6279Gyaucpspe department patient visitSmaria elena Rodriguez MD Work Phone: [facility] EDComment on above:Contusion of coccyx, initial encounter (Primary Dx); Fall, initial encounterStart: 62-36-2826ridirxwafkBYLCJ COTTEN Facility:[facility]tart: 75-83-1560sljvsqxtlrUUYPV COTTEN Facility:[facility]tart: 04-27-2022 End: 04-27-1370Uzrkid consultation new/estab patient 39 Jojo Chery APRN-TRUST ADMINISTRATOR Work Phone: General and Gastrointestinal Surgery [facility] Comment on above:Ventral hernia without obstruction or gangrene (Primary Dx); Tobacco useStart: 01-04-2022 End: 23-17-2668Zcarfmkzfv hospital visit by [facility] Mri ScannerMTHZ LaboratoryComment on above:Chronic right hip painRecurrent abdominal hernia without obstruction or gangrene, unspecified hernia type; Right lower quadrant abdominal massStart: 98-59-9518viihbgzhkzEVAZU COTTEN Facility:[facility]tart: 74-11-0318fddoqimudtNUNGP COTTEN Facility:[facility]tart: 08-25-2021 End: 19-30-9994twrhkuhvhcIN DOCTOR MISCFacility:R9Pxlqs: 07-19-2021 End: 86-87-3553zpgmzbvmmeKMDLQL Y HANFacility:[facility]tart: 07-19-2021 End: 45-88-3051Xdmxummieu hospital visit by Sylvie Pickett MD Work Phone: [facility] EndoscopyComment on above:Pancreatic mass Start: 06-20-2021 End: 24-73-7195Nhkjwkeccn hospital visit by [facility] Cat Scan RoomDOCTORS' HOSPITAL LaboratoryComment on above:Urinary incontinence, unspecified typeRight sided abdominal painStart: 04-10-2021 End: 40-61-4277Eqwfgokeql hospital visit by [facility] Xr [address] Room [address] [place] [address] RadiologyComment on above:Chronic right hip pain; Fall, initial encounter; Right hip painStart: 03-17-2021 End: 85-79-2324Bzffsofzq department patient visitSmaria elena Rodriguez MD Work Phone: [facility] EDComment on above:Pneumonia due to infectious organism, unspecified laterality, unspecified part of lung (Primary Dx); Cellulitis of left lower extremity; Acute on chronic respiratory failure with hypoxia (HCC); Pleural effusion, bilateralStart: 02-09-2021 End: 26-89-2904Zkqguorax department patient visitBluffton Hospital EDComment on above:Closed head injury, initial encounter (Primary Dx); Fall, initial encounter; Contusion of right knee, initial encounterStart: 01-17-2021 End: 80-87-4512Hzfkldoro department patient visitMarita Munoz DO Work Phone: [facility] EDComment on above:Intractable vomiting with nausea, unspecified vomiting type (Primary Dx)Start: 01-12-2021 End: 76-64-3712Txndcwepj department patient visitAlbert Ibrahim DO Work Phone: [facility] EDComment on above:Near syncope (Primary Dx); Multiple contusions; Abrasion of right knee, initial encounterStart: 12-04-2020 End: 56-27-5624Outezcqwf department patient visitMukesh Marley MD Work Phone: [facility] EDComment on above:Pelvic pain (Primary Dx)Start: 04-12-2020 End: 55-10-0620Lrcjdgznzwn [facility] Work Phone: [facility] Work Phone: Start: 04-05-2020 End: 12-70-4656Xcrgjuwph department patient visitChfantatrell Saeed Alexander Work Phone: [facility] EDComment on above:Acute right- sided low back pain without sciatica (Primary Dx)Start: 03-21-2020 End: 56-30-3590Pwbwtwnyh department patient visitAimeki [facility] EDComment on above:Sacroiliac joint pain (Primary Dx)Start: 03-18-2020 End: 87-73-9049Gttjkezrnf and management of inpatientHeminderet Martinez Work Phone: stvz CAR 1Comment on above:S/P cardiac cath; S/P angioplasty with stentStart: 03-17-2020 End: 06-84-5283Yejoqdzhfc hospital visit by physicianBet[facility]da Hospital Postie 1MTHZ CATH LABStart: 03-17-2020 End: 66-25-1220Ntivtnykyp and management of inpatientAli F O Ahmad Work Phone: mthz [facility]U MED SURGComment on above:Chest pain, unspecified type (Primary Dx)Start: 03-13-2020 End: 67-03-1035Yiotfncss department patient visitMukesh Marley Work Phone: [facility] EDComment on above:Congestive heart failure, unspecified HF chronicity, unspecified heart failure type (HCC) (Primary Dx); Bronchitis; COPD exacerbation (HCC)Start: 02-12-2020 End: 23-47-8865Kujkodier department patient visitDeion Loaiza Work Phone: [facility] EDComment on above: Osteoarthritis, unspecified osteoarthritis type, unspecified site (Primary Dx); Avascular necrosis (HCC); Urinary tract infection without hematuria, site unspecifiedStart: 02-04-2020 End: 84-10-5904Lqqlxclgmk hospital visit by [facility] Postie 1MTHZ CATH LABStart: 01-28-2020 End: 99-23-9361Feaqvsjjjb hospital visit by Aaliyah Hernandez [facility] CTRStart: 01-28-2020 End: 81-61-4818Zymafhmklrq patientKaitlupis Dina Work Phone: [facility] Work Phone: Start: 11-16-2019 End: 39-02-2079Oedexemlzc hospital visit by Aaliyah Hernandez [facility] CTRStart: 11-16-2019 End: 61-50-7120Pkmvoze encounter procedureAlpakleber Capps Work Phone: [facility] Work Phone: Start: 11-16-2019 End: 73-28-4002Olwhiieotfy lucilaki Nagy Work Phone: [facility] Work Phone: Start: 10-21-2019 End: 50-66-4431Wsdzhuydw department patient visitMukesh Marley Work Phone: [facility] EDComment on above:[place] choudhury, right, initial encounter (Primary Dx)Start: 10-21-2019 End: 90-68-4453Ibdbrratebn patientNitza Mark Work Phone: [facility] Work Phone: Start: 10-21-2019 End: 95-47-6619Aiybjxcfzix patientKatherine Mark Work Phone: [facility] Work Phone: Start: 10-07-2019 End: 01-16-0433Hsyrxvfvw department patient visitSyed Ariana Whitten Work Phone: [facility] EDComment on above:Opioid overdose, accidental or unintentional, initial encounter (HCC) (Primary Dx); Pneumonia due to organismStart: 10-06-2019 End: 52-85-7327Lsdcmilpt department patient visitMicSt. Rita's Hospital EDComment on above:Chronic obstructive pulmonary disease with acute exacerbation (HCC) (Primary Dx); Pneumonia due to organism; Cough; Chronic bilateral low back pain with bilateral sciaticaStart: 10-01-2019 End: 42-71-1809Mbwsugllkp hospital visit by [facility] Postie Rm 1MTHZ CATH LABComment on above:Canceled (Patient preference)Start: 09-28-2019 End: 39-10-3258Hcdxcolkjj hospital visit by physicianM[facility] [place] Screening ScheduleDOCTORS' HOSPITAL Covid ScreeningComment on above:ArrivedStart: 09-24-2019 End: 83-58-4476Dvlfamjttcu Pascual Holliday Work Phone: [facility] Work Phone: Start: 09-23-2019 End: 70-01-5256Cswuwyqovkpe consultation with Tre Nagy Work Phone: [facility] Work Phone: Start: 09-21-2019 End: 41-57-7852Ubexjxtobk hospital visit by Aaliyah NagyDOCTORS' HOSPITAL Laboratory Comment on above:ASHD (arteriosclerotic heart disease); S/P angioplasty with stent; Mixed hyperlipidemia; Essential hypertension; Tobacco abuse counseling; Bilateral carotid artery disease, unspecified type (HCC); PVD (peripheral vascular disease) ([facility]); Abdominal aortic aneurysm (AAA) without rupture ([facility]); SOB (shortness of breath)Start: 09-21-2019 End: 58-93-0105Phawtzpuok hospital visit by physicianBet[facility]da Hospital Paz19 Pat Screening ScheduleDOCTORS' HOSPITAL PRE ADMITStart: 09-17-2019 End: 22-32-1815Nowjbrevgf hospital visit by [facility] Cardiology Stress Room [facility] Stress LabComment on above:ArrivedStart: 09-16-2019 End: 78-21-0384Orempkfkdd hospital visit by [facility] Cardiology Stress Room [facility] Stress LabComment on above:ASHD (arteriosclerotic heart disease); S/P angioplasty with stent; Mixed hyperlipidemia; Essential hypertension; Tobacco abuse counseling; Abdominal aortic aneurysm (AAA) without rupture (HCC); PVD (peripheral vascular disease) (HCC); Bilateral carotid artery disease, unspecified type (HCC); Lightheadedness; DizzinessStart: 09-15-2019 End: 75-19-7814WxkzozzAzygyjc Short Work Phone: [facility] Work Phone: Start: 09-15-2019 End: 66-90-7891Vrmtihroptaj consultation with [employer] Work Phone: [facility] Work Phone: Start: 09-09-2019 End: 64-50-3020Ssvtefwhixmw consultation with [employer] Work Phone: [facility] Work Phone: Start: 09-03-2019 End: 77-38-8831Frnkskeorg hospital visit by [facility] Echo RoomDOCTORS' HOSPITAL EchocardiographyComment on above:ASHD (arteriosclerotic heart disease); S/P angioplasty with stent; Mixed hyperlipidemia; Essential hypertension; Tobacco abuse counseling; Abdominal aortic aneurysm (AAA) without rupture (HCC); PVD (peripheral vascular disease) (HCC); Bilateral carotid artery disease, unspecified type (HCC); Lightheadedness; DizzinessStart: 08-26-2019 End: 51-80-2946Balmrlvrmjfh consultation with [employer] Work Phone: [facility] Work Phone: Start: 07-30-2019 End: 72-14-0207Prjheqzgrxbh consultation with [employer] Work Phone: [facility] Work Phone: Start: 07-18-2019 End: 06-99-2505Ecxzgqxsat and management of inpatientJames A Deb Work Phone: stvz Ortho/Med SurgComment on above:Atherosclerosis of artery of extremity with intermittent claudication (HCC); Incontinence; Chronic obstructive pulmonary disease, unspecified COPD type (HCC)Start: 07-17-2019 End: 97-19-7344Grffnjlqy department patient visitTyza Diaz Work Phone: [facility] EDComment on above:Acute respiratory failure with hypoxia and hypercapnia (HCC) (Primary Dx); Viral pneumonia; Acute pulmonary edema (HCC)Start: 07-09-2019 End: 54-50-1710Qpzlitddmwzl consultation with Tre Nagy Work Phone: [facility] Work Phone: Start: 06-17-2019 End: 95-25-7938Cmygeshwfpc Tre Nagy Work Phone: [facility] Work Phone: Start: 06-15-2019 End: 46-96-6135Rgncetbef department patient visitMukesh Ki Martinezzara Work Phone: [phone] [place] [address] EDComment on above:Benign paroxysmal positional vertigo, unspecified laterality (Primary Dx)Start: 05-27-2019 End: 29-06-9992Rxxwzzigf department patient visitTyza Diaz Work Phone: [phone] [place] [address] EDComment on above:Contusion of left hand, initial encounter (Primary Dx)Start: 05-01-2019 End: 96-42-6560Dazogqncpao Tre Nagy Work Phone: [facility] Work Phone: Start: 04-21-2019 End: 12-30-3577Eqtmszzpet and management of inpatientJustin Andes DO Work Phone: m[facility] MED SURGComment on above:Pneumonia due to organism (Primary Dx); COPD, severity to be determined (HCC); COPD with exacerbation (HCC)Start: 04-14-2019 End: 30-73-8917Gbudnjeghsd patientStenathalie Grimaldo Work Phone: [facility] Work Phone: Start: 04-14-2019 End: 41-23-7120Uqpssexumry Tre Nagy Work Phone: [facility] Work Phone: Start: 04-12-2019 End: 91-41-7955Cxboimvky department patient visitAlefortunato Sebastian DO Work Phone: [facility] EDComment on above:Acute pain of left shoulder (Primary Dx); DizzinessStart: 03-20-2019 End: 91-03-6965Ovzenweobug Tre Nagy Work Phone: [facility] Work Phone: Start: 03-12-2019 End: 21-09-7930Ilpbthp encounter procedureVahid Nagy Work Phone: [facility] Work Phone: start: 03-03-2019 End: 34-62-6713Owqtgvm encounter procedureVahid Nagy Work Phone: [facility] Work Phone: Start: 03-03-2019 End: 93-38-6167Yhxwbqzufzl patientCabriana Malik Work Phone: [facility] Work Phone: Start: 02-23-2019 End: 96-49-4942Mirbpcymb department patient visitMiccolten Sanjaybalaji Work Phone: [facility] EDComment on above:Abdominal pain, unspecified abdominal location (Primary Dx); Anxiety stateStart: 02-23-2019 End: 33-39-6406Qnfgdymhvm hospital visit by [facility] MRIComment on above:Spinal stenosis of lumbar region, unspecified whether neurogenic claudication present; DDD (degenerative disc disease), lumbarStart: 02-19-2019 End: 32-30-7297Zzcxssaoleo patientSteven Grimaldo Work Phone: [facility] Work Phone: Start: 02-19-2019 End: 44-60-4201Nhskrmrculx patientVahid Nagy Work Phone: [facility] Work Phone: Start: 01-29-2019 End: 79-51-7712Forkovr evaluation of patient and reportLee Karla Adams Work Phone: [facility] Work Phone: Start: 01-22-2019 End: 97-50-4007Fdvbyuhbjdc Tre Nagy Work Phone: [facility] Work Phone: Start: 01-14-2019 End: 23-51-8794Rkgtnjb encounter procedureCashashankradha King Work Phone: [facility] Work Phone: start: 01-13-2019 End: 69-52-6776Zpwtnbvtr department patient visitAiHolmes County [facility] EDComment on above:Near syncope (Primary Dx); Fall from standing, initial encounter; HyponatremiaStart: 01-12-2019 End: 06-80-9401Jmyulobsfq hospital [facility] Karen Carroll [address] [place] [address] RadiologyComment on above:Pain of left upper extremityStart: 01-12-2019 End: 45-56-4914Dlmbjadeuyy patientCabriana Malik Work Phone: [facility] Work Phone: Start: 12-11-2018 End: 82-83-1105Nvhkjujzyjo Tre Nagy Work Phone: [facility] Work Phone: Start: 10-30-2018 End: 71-29-3201Iezdqspygsr [facility] Angelita Work Phone: [facility] Work Phone: Start: 09-30-2018 End: 82-26-0912Nklycnqfrqc patientStenathalie Grimaldo Work Phone: [facility] Work Phone: Start: 08-27-2018 End: 90-77-2919Oedvtxvgywj patientVahid Nagy Work Phone: [facility] Work Phone: Start: 07-28-2018 End: 99-46-7627Foxlovogenk patientVahid Nagy Work Phone: [facility] Work Phone: Start: 06-27-2018 End: 29-40-2035Hwtxdjwcktb patientVahid Nagy Work Phone: [facility] Work Phone: Start: 06-10-2018 End: 93-67-1037Hpflxct encounter procedureAijuanito Nagy Work Phone: [facility] Work Phone: start: 05-30-2018 End: 74-19-6379Popmnaakbfy patientVahid Nagy Work Phone: [facility] Work Phone: Start: 05-07-2018 End: 39-27-9410Chfjscp encounter procedureVahid Nagy Work Phone: [facility] Work Phone: start: 04-29-2018 End: 45-69-0749Jdwqeahndkg patientVahid Nagy Work Phone: [facility] Work Phone: Start: 52-99-4173Mxmlhq outpatient visit 15 minutes Jenelle Bonilla Other [facility]: 03-26-2018 End: 49-63-8830Ngudjlr encounter procedureAijuanito Nagy [facility] Work Phone: [facility] Work Phone: start: 65-66-8251Ahowmfm encounter procedureMELISSA MADDISON FOXFacility:[facility] Centertart: 02-24-2018 End: 27-12-3267Kubkygw encounter procedureVahid Nagy CNP Work Phone: [facility] Work Phone: start: 47-59-2176Hxyqqo outpatient visit 15 minutes Vahid Nagy Other [facility]: 56-60-6876Tlihhs outpatient visit 15 minutesVahid Nagy Other [facility]: 02-10-2018 End: 78-79-9626Tsawvga encounter procedureVahid Nagy CNP Work Phone: [facility] Work Phone: start: 01-20-2018 End: 87-75-3949Fsuzpjr encounter procedureVahid Nagy CNP Work Phone: [facility] Work Phone: Start: 01-20-2018 End: 25-64-4559Zgvlts outpatient visit 15 minutesVahid Nagy Other [facility]: 12-27-2017 End: 27-58-8890Mxyznii encounter procedureVahid Nagy CNP Work Phone: [facility] Work Phone: start: 12-27-2017 End: 02-31-9467Cdiqkd outpatient visit 15 minutesVahid Nagy Other [facility]: 11-26-2017 End: 90-94-1639Ishshbi encounter procedureVahid Nagy CNP Work Phone: [facility] Work Phone: Start: 53-07-6285Mfbd bld gluc mntr dev cleared fda spec home useAimee DaniellaenHealth [facility]ville Medical Center start: 11-26-2017 End: 43-68-4883Xrnvcj outpatient visit 25 minutesVahid Nagy Other [facility]: 10-22-2017 End: 08-72-5570Qdwaegi encounter procedureVahid Nagy CNP Work Phone: [facility] Work Phone: start: 10-22-2017 End: 45-79-1168Kmihrf outpatient visit 15 minutesVahid Nagy Other [facility]: 10-10-2017 End: 33-79-2883Acvpxp outpatient visit 15 minutesSingh Azevedo Other [facility]: 10-10-2017 End: 56-63-6982Dzopafc encounter procedureVahid Nagy CNP Work Phone: [facility] Work Phone: start: 09-11-2017 End: 97-76-5964Tdadidb encounter procedureAijuanito Nagy CNP Work Phone: [facility] Work Phone: start: 09-11-2017 End: 22-90-8481Bynxdsxlws HealthStevernestina Grimaldo Other [facility]: 98-30-0122Nfpl bld gluc mntr dev cleared fda spec home useSteven RobinsonWestwood Lodge Hospital start: 09-11-2017 End: 54-86-7557Sjmnxr outpatient visit 15 minutesVahid Nagy Other [facility]: 08-16-2017 End: 96-94-0267Qhbqzwb encounter procedureAijuanito Nagy CNP Work Phone: [facility] Work Phone: start: 15-24-5451Igbr bld gluc mntr dev cleared fda spec home useSteven RobinsonWestwood Lodge Hospital start: 08-16-2017 End: 38-64-8494Uvzhwb outpatient visit 15 minutesVahid Nagy Other [facility]: 08-06-2017 End: 44-70-4548Ormkxnt encounter procedureAijuanito Nagy CNP Work Phone: [facility] Work Phone: Start: 89-09-1662Zgpsnsgzgo examination, unspecified Vahid [facility] Start: 09-68-3711K-reactive proteinSteformerly [facility] Grimaldo [facility] Start: 26-08-9545Bebtjvajuflsx metabolic panelSteWhite County Medical Center Start: 25-77-3383Irz bone density study 1/> sites axial [facility]SLittle [facility] Start: 33-02-6383Ozuo bld gluc mntr dev cleared fda spec home useSteformerly [facility] CareFamilyWestwood Lodge Hospital Start: 12-56-4139Vaaftbmzbcd analyte qual/semiqual multiple stepSteformerly [facility] CareFamilyWestwood Lodge Hospital Start: 08-06-2017 End: 01-90-3238Lkrtjy outpatient visit 15 minutesAijuanito Nagy Other [facility]: 79-38-7396Wlapi spine cervical 2 or 3 viewsZach CareFamilyWestwood Lodge Hospital Start: 78-76-3615Vntqo spine lumbosacral 2/3 views Zach GrimaldoWestwood Lodge Hospital Start: 89-84-6986Bekxr spine thoracic 2 viewsZach GrimaldoWestwood Lodge Hospital Start: 37-05-7256Ysqjdjgdpguvi rate rbc automatedSternestina [facility] Start: 98-67-8737Wjqkpcqidu examination, unspecified Vahid [facility] start: 07-29-2017 End: 74-26-0554Uglkabf encounter procedureVahid Nagy TRUST ADMINISTRATOR Work Phone: [facility] Work Phone: Start: 64-32-7104Welu bld gluc mntr dev cleared fda spec home useSteven DillanWestwood Lodge Hospital start: 07-29-2017 End: 85-59-6531Ydoxsa outpatient visit 15 minutesChristoki Nagy Other [facility]: 02-15-2017 End: 59-31-2329Tkyiec outpatient visit 15 minutesLuelizabeth Azevedo Other [facility]: 68-30-4466Lsyhc spine lumbosacral 2/3 viewsStshirley GrimaldoWestwood Lodge Hospital Start: 02-15-2017 End: 05-69-0394Lcneneh encounter procedureChristoki Nagy TRUST ADMINISTRATOR Work Phone: [facility] Work Phone: start: 01-15-2017 End: 63-46-8278Yvcentm encounter procedureConversion Provider Work Phone: [facility] Work Phone: start: 15-87-0603Dpwekfs use cessation intermediate 3- 10 minutesZach GrimaldoWestwood Lodge Hospital Start: 01-15-2017 End: 35-09-5987Cpvlys outpatient visit 15 minutesLuelizabeth Roberto Carlos Other [facility]: 12-14-2016 End: 85-62-3452Zmhazhx encounter procedureChristoki Nagy TRUST ADMINISTRATOR Work Phone: [facility] Work Phone: start: 29-57-9610Mgoffcq use cessation intermediate 3- 10 minutesStshirley GrimaldoWestwood Lodge Hospital start: 12-14-2016 End: 50-88-5803Cawuldqgja HealthStshirley Grimaldo Other [facility]: 12-14-2016 Comprehensive metabolic panelSteven DillanWestwood Lodge Hospital start: 18-16-2754Ynzo bld gluc mntr dev cleared fda spec home useSjeane GrimaldoWestwood Lodge Hospital start: 76-91-1163Jcjfbqbst c antibodyZach Grimaldo [facility] start: 12-14-2016 End: 79-89-6323Zhvlhz outpatient visit 15 minutesLuke Roberto Carlos Other [facility]: 04-14-2015 End: 20-37-7582Wovbqen encounter procedureAijuanito Nagy CNP Work Phone: [facility] Work Phone: start: 04-14-2015 End: 36-29-5422Kncpebesnj Hermelinda Grimaldo Other [facility]: 04-14-2015 End: 26-31-9905Fzfjlm outpatient visit 15 minutesLuke Roberto Carlos Other [facility]: 03-11-2015 End: 68-34-8364Rifnqje encounter procedureAijuanito Nagy CNP Work Phone: [facility] Work Phone: start: 33-66-7281Jgpldjvssnerj metabolic panelSjeane [facility] start: 04-71-2957Qbon bld gluc mntr dev cleared fda spec home useSjeane GrimaldoWestwood Lodge Hospital start: 26-98-1647Wmciosbxg, screeningZach Grimaldo [facility] start: 03-11-2015 End: 59-66-7029Bbweeq outpatient visit 15 minutesLuke Roberto Carlos Other [facility]: 02-10-2015 End: 21-88-1053Tnszgky encounter procedureConversion Provider Work Phone: [facility] Work Phone: start: 02-10-2015 End: 74-91-6399Uhygzelzlr Hermelinda Grimaldo Other [facility]: 02-10-2015 Colonoscopy w/biopsy single/multipleSteven [facility] start: 13-81-7750Arcc bld gluc mntr dev cleared fda spec home useSteven [facility] start: 09-37-1205Yampwkuqh, screeningSteven [facility] start: 02-10-2015 End: 02-50-8128Wtgvbk outpatient visit 15 minutesLuke Roberto Carlos Other [facility] Procedures DateProcedureProcedure DetailPerforming ClinicianStart: 75-50-3947Zdtoguqyu serum plasma/whole bloodTaaggie Amado INSPECTOR [employer]-TRUST ADMINISTRATOR Work Phone: Start: 73-44-4142KGDLVMC GLUCOSENat Reynolds MD Work Phone: Start: 23-90-5648MEPWWUE GLUCOSENat Reynolds MD Work Phone: Start: 99-43-0617Foolttnkbkeql metabolic panelTaeler Aneudy INSPECTOR [employer]-TRUST ADMINISTRATOR Work Phone: Start: 84-94-5673LJHDG TUBESNat Reynolds MD Work Phone: Start: 78-89-0929QIYAJ TUBES BLUE TOPNat Reynolds MD Work Phone: Start: 19-50-6305BBHCBTP GLUCOSENat Reynolds MD Work Phone: Start: 22-41-6608Gzmopjbvi serum plasma/whole blood Nat Reynolds MD Work Phone: Start: 43-92-5543NGHANKY Orion Reynolds MD Work Phone: Start: 53-18-6654Wbvxixlfy serum plasma/whole blood Taaggie Amado INSPECTOR [employer]-TRUST ADMINISTRATOR Work Phone: Start: 01-28-3885NHOMLXV Orion Reynolds MD Work Phone: Start: 26-74-1966Cejejnoervfmk metabolic panelTaeler Aneudy INSPECTOR [employer]-TRUST ADMINISTRATOR Work Phone: Start: 24-13-2958JPSOQ OXIMETRY, SPOTTaeler Amado INSPECTOR [employer]-TRUST ADMINISTRATOR Work Phone: Start: 67-17-1922XDIZNCZ GLUCOSENat Reynolds MD Work Phone: Start: 02-30-4319WG EXTRA URINEAmber Pablo INSPECTOR [employer]-TRUST ADMINISTRATOR Work Phone: Start: 15-37-5397YB EXTRA URINE CULTUREAmber Pablo INSPECTOR [employer]-TRUST ADMINISTRATOR Work Phone: Start: 39-33-6822YX EXTRA URINE MARBLEAmber Shah INSPECTOR [employer]-TRUST ADMINISTRATOR Work Phone: Start: 18-62-1156Uisad dip stick/tablet rgnt auto w/o microscopyShayne A Pizano DO Work Phone: Start: 93-12-1064Hk angiography chest w/contrast/noncontrastAmber Pablo INSPECTOR [employer]-TRUST ADMINISTRATOR Work Phone: Start: 10-40-9109Cehvl of troponin quantitativeAmber Pablo INSPECTOR [employer]-TRUST ADMINISTRATOR Work Phone: Start: 14-29-1215Omujadyuht exam chest single view Kellen Pablo INSPECTOR [employer]-TRUST ADMINISTRATOR Work Phone: Start: 43-24-8524Pucjyqsumkvua metabolic panelAmber Pablo INSPECTOR [employer]-TRUST ADMINISTRATOR Work Phone: Start: 03-86-2728Kzqjnyks screenSTEFAN IACOBComment on above:Performed By: #### TSC ####[facility] ([address] [address] VIRStart: 70-82-5688Rkwrltdnbs microscopic only Filomena Holli INSPECTOR [employer] - TRUST ADMINISTRATOR Work Phone: Start: 76-76-0875Fzpxj dip stick/tablet rgnt auto w/o microscopyKrSt. Helens Hospital and Health Center Work Phone: Start: 00-51-8335Qr pelvis w/o contrast materialSummit Oaks Hospital Work Phone: Start: 01-47-9251Ibnregnwbeitc metabolic panelSummit Oaks Hospital Work Phone: Start: 11-19-2024 End: 37-22-2690Btzzw foot complete minimum 3 viewsKrSt. Helens Hospital and Health Center Work Phone: Start: 91-18-1570Vaa bact xcpt urine blood/stool aerobic isolMegall Jose A Vishal [facility] Work Phone: Start: 40-80-9216DEKDZ METABOLIC PANEL W/ REFLEX TO MG FOR LOW KShirley A [facility] Work Phone: Start: 65-20-1910Ojtee count complete auto&auto difrntl wbcShirley A [facility] Work Phone: Start: 28-79-6417QBHGH METABOLIC PANEL W/ REFLEX TO MG FOR LOW KShirley A [facility] Work Phone: Start: 33-72-9930Sxsks count complete auto&auto difrntl wbcShirley A [facility] Work Phone: Start: 18-38-6223QSTIZ METABOLIC PANEL W/ REFLEX TO MG FOR LOW KShirley A [facility] Work Phone: Start: 14-43-2389Bnheu count reticulocyte automated Osmar Rodriguez MD Work Phone: Start: 90-43-7957DVWMLTA B12 & FOLATEStdiego Rodriguez MD Work Phone: Start: 16-16-9971GWNTF METABOLIC PANEL W/ REFLEX TO MG FOR LOW KShirley A Kahlotus-Nii INSPECTOR [employer] - [employer]UST ADMINISTRATOR Work Phone: Start: 37-49-4292Oneex count complete auto&auto difrntl wbcShirley A Fabi INSPECTOR [employer] - TRUST ADMINISTRATOR Work Phone: Start: 41-02-5970EAEZM METABOLIC PANEL W/ REFLEX TO MG FOR LOW KShirley A Fabi INSPECT[employer] - TRUST ADMINISTRATOR Work Phone: Start: 56-78-3350Qryzd count complete auto&auto difrntl wbcShircristian Dunlap INSPECTOR [employer] - TRUST ADMINISTRATOR Work Phone: Start: 06-48-3854Dcsgrxl bacterial blood aerobic w/id isolatesKelly Y Ariza PA-C Work Phone: Start: 08-12-2024 End: 83-94-0227Ednkzabpty examination foot 2 viewsKelly Y Ariza PA-C Work Phone: Start: 60-49-4926Zecpr metabolic panel calcium total Ashley Y Ariza PA-C Work Phone: Start: 66-08-2797B-reactive proteinKelly Y Ariza PA-C Work Phone: Start: 48-72-8856ZGYMXUH, BLOOD 1Kelly Y Ariza PA-C Work Phone: Start: 35-06-8708IVEWC METABOLIC PANEL W/ REFLEX TO MG FOR LOW KShirley Ariana Dunlap INSPECTOR [employer] - TRUST ADMINISTRATOR Work Phone: Start: 27-16-4293Oyhxj count complete auto&auto difrntl wbcShircristian Dunlap INSPECTOR [employer] - TRUST ADMINISTRATOR Work Phone: Start: 95-52-0937ZAVJV METABOLIC PANEL W/ REFLEX TO MG FOR LOW KShirley Ariana Dunlap INSPECTOR [employer] - TRUST ADMINISTRATOR Work Phone: Start: 76-49-8012Yuhen count complete auto&auto difrntl wbcShircristian Dunlap INSPECTOR [employer] - TRUST ADMINISTRATOR Work Phone: Start: 58-21-6803Agfvvce function panelShircristian ConnerEating Recovery Center [facility] - [facility] Work Phone: Start: 59-19-8817AIDTJ METABOLIC PANEL W/ REFLEX TO MG FOR LOW KShircristian PeterUniversity of [facility] - [facility] Work Phone: Start: 15-10-7812Kkyuu count complete auto&auto difrntl wbcOliva Lane [facility] Work Phone: Start: 98-47-5223Tuk-scan lxtr art/artl bpgs compl bi studyBhumimorteza Adorno Rodrigo DPM Work Phone: Start: 81-35-9746PHUTB METABOLIC PANEL W/ REFLEX TO MG FOR LOW Ethan TristanSt. Agnes Hospital Work Phone: Start: 31-19-6532Cooch count complete auto&auto difrntl wbcOliva Lane [facility] Work Phone: Start: 49-54-6971Gobuasl bacterial blood aerobic w/id isolatesShaida Lane [facility] Work Phone: Start: 54-72-7507Ckqshaiojd glycosylated v7yRzxisfiOliva PeterWisconsin [facility] Hospital[facility] Work Phone: Start: 74-69-7570NRCLOSE, SEPSISShircristian Lane [facility] Work Phone: Start: 08-06-2024 End: 04-18-4566Wl lower extremity w/contrast materialSalisha Lane [facility] Work Phone: Start: 28-68-6624Za thorax w/contrast materialSabiliorcristian Lane [facility] Work Phone: Start: 27-68-6315Ea head/brain w/o contrast material Oliva Ariana [facility] Work Phone: Start: 46-21-3681Gqu routine ecg w/least 12 lds i&r onlyOliva Dunlap INSPECTOR [employer] - TRUST ADMINISTRATOR Work Phone: Start: 65-01-1278Kvy prim src gram/giemsa stain bct fungi/cellSalisha Dunlap INSPECTOR [employer] - TRUST ADMINISTRATOR Work Phone: Start: 59-97-3961Sbtli count complete auto&auto difrntl wbcOliva Dunlap INSPECT[employer] - [facility] Work Phone: Start: 25-96-5145EEDQKSZ, BLOOD 1Shiberhane Bales [facility] [employer] [facility] Work Phone: Start: 58-36-5996Bliuv depression screening assessment Rebeca Johnson MD Work Phone: Start: 09-84-9330Kbpxgq scan of lower limb veinsDO Carlo Grimaldo Work Phone: Start: Wlkyeffa tomography of abdomen and pelvis with contrastDO Carlo Grimaldo Work Phone: Start: 78-87-3094AD angiography of thoraxDO Carlo Grimaldo Work Phone: Start: 16-88-6008Nwxgu chest X-rayDO Carlo Grimaldo Work Phone: Start: 10-69-8074Usdyitwynps Panel (PCR)DO Carlo Grimaldo Work Phone: Start: 43-67-5664Yxkqr Occult Blood (JESS)DO Carlo Grimaldo Work Phone: Start: 37-60-7068TgfsnotmbjrWibwdr Iacob MD Work Phone: Start: 70-30-5205Ieqlu depression screening assessment Irena Vallejo CMAStart: 38-16-9291Pvqmtfmonczgb metabolic panelSmaria elena Rodriguez MD Work Phone: Start: 02-60-3881Eedli albumin quantitativeStdiego Rodriguez MD Work Phone: Start: 07-26-2022 End: 33-86-8292Kfhap panelSmaria elena Rodriguez MD Work Phone: Start: 07-26-2022 End: 26-72-9734Xtinkcdcentlv metabolic panelSmaria elena Rodriguze MD Work Phone: Start: 72-09-7997Pewqpyojxpat [Mass/volume] in Urine by Test stripCatterry Vargas MAStart: 07-21-2022 End: 43-05-1590Dnhhw spine lumbosacral 2/3 viewsOlgaian Diego THORNE Work Phone: Start: 91-49-8469Ool any jt lower extrem w/o contrast matrlSmaria elena Rodriguez MD Work Phone: Start: 79-07-2404Xv abdomen & pelvis w/contrast Naren Rodriguez MD Work Phone: Start: 63-02-3621Ntjypducqd bloodStdiego Rodriguez MD Work Phone: Start: 07-19-2021 End: 19-57-9446KML W/ ULTRASOUNDSadenise Pickett MD Work Phone: Start: 16-59-7381Dadkckp measurement, bloodPedrito Pickett MD Work Phone: Start: 20-17-6979PNHHKMJHIQ ENDOSCOPICStephanie A Adelina INSPECTOR [employer]-TRUST ADMINISTRATOR Work Phone: Start: 68-25-2180Czrrgsv measurement, bloodPedrito Pickett MD Work Phone: Start: 32-62-5820Lz abdomen & pelvis w/contrast Naren Rodriguez MD Work Phone: Start: 83-58-0723Nlrwj count complete auto&auto difrntl wbcStdiego Rodriguez MD Work Phone: Start: 56-84-0083Ebmlw hip unilateral with pelvis 2-3 viewsStdiego Rodriguez MD Work Phone: Start: 95-59-6994XALDN METABOLIC PANEL W/ REFLEX TO MG FOR LOW KShirley A Kahlotus INSPECTOR [employer] - TRUST ADMINISTRATOR Work Phone: Start: 15-40-8532Nfnkx count complete auto&auto difrntl wbcOliva Tristan INSPECTOR [employer] - TRUST ADMINISTRATOR Work Phone: Start: 54-24-6591OLJBU METABOLIC PANEL W/ REFLEX TO MG FOR LOW Ethan Tristan INSPECTOR [employer] - TRUST ADMINISTRATOR Work Phone: Start: 58-08-4070Rsmqy count complete auto&auto difrntl wbcOliva Tristan INSPECTOR [employer] - TRUST ADMINISTRATOR Work Phone: Start: 11-58-7649Vdxlypaayh exam chest 2 viewsOliva Tristan INSPECTOR [employer] - TRUST ADMINISTRATOR Work Phone: Start: 29-92-1555YTWBQCX, BLOOD 1Shircristian Tristan INSPECTOR [employer] - TRUST ADMINISTRATOR Work Phone: Start: 94-80-4450WRJLG-19, RAPIDShircristian Tristan INSPECTOR [employer] - TRUST ADMINISTRATOR Work Phone: Start: 26-36-5084Sv thorax w/contrast materialJoshua Grund INSPECTOR [employer] - TRUST ADMINISTRATOR Work Phone: Start: 77-56-5828Kbytihwjzl microscopic onlyOliva Tristan INSPECTOR [employer] - TRUST ADMINISTRATOR Work Phone: Start: 63-38-8991Bfacq dip stick/tablet rgnt auto w/o microscopyOliva Tristan INSPECTOR [employer] - TRUST ADMINISTRATOR Work Phone: Start: 00-87-9791BBVHXWU, SEPSISJoshua Baciliound INSPECTOR [employer] - TRUST ADMINISTRATOR Work Phone: Start: 35-33-7950Dqp-scan xtr veins complete bilateral studyJoshua Grund INSPECTOR [employer] - TRUST ADMINISTRATOR Work Phone: Start: 32-86-0204Fzghr metabolic panel calcium total Harish Sebastian DO Work Phone: Start: 39-17-6180UQJDP TO COMPREHENSIVE UPGRADE Harish Sebastian DO Work Phone: Start: 19-12-4191C-reactive proteinJoshua Analilia INSPECTOR [employer] - TRUST ADMINISTRATOR Work Phone: Start: 36-44-0547Rjwkbjzvpf exam chest single view Harish Sebastian DO Work Phone: Start: 91-13-7255Cvg routine ecg w/least 12 lds i&r onlyAlexaconsuelo Sebastian DO Work Phone: Start: 02-09-2021 End: 57-49-9710Kxepi sacrum & coccyx minimum 2 viewsStevernestina Marie Ashra PA-C Work Phone: Start: 83-22-5407Qkzjuexxqx exam chest single view Zach Marie Sahra PA-C Work Phone: Start: 37-64-7245Ob cervical spine w/o contrast materialSteven D Sahra PA-C Work Phone: Start: 83-06-1492Hz head/brain w/o contrast material Zach Marie Sahra PA-C Work Phone: Start: 66-27-6149Dxwukgdpcur timeSteven D Sahra PA-C Work Phone: Start: 43-50-4678Hwn routine ecg w/least 12 lds w/i&r Zach Marie Sahra PA-C Work Phone: Start: 02-81-8141Ry abdomen & pelvis w/o contrast materialChristina R Munoz DO Work Phone: Start: 28-32-8733Zygro of lactateChristina R Munoz DO Work Phone: Start: 17-21-9642ZFJAB-19, RAPIDChristina R Munoz DO Work Phone: Start: 74-48-3074Yxl routine ecg w/least 12 lds w/i&r Albert Andes DO Work Phone: Start: 69-81-4998Yruvi of magnesiumJustin Andes DO Work Phone: Start: 11-21-3895WLUSW METABOLIC PANEL W/ REFLEX TO MG FOR LOW KJustin Andes DO Work Phone: Start: 01-12-2021 End: 14-31-7324Odxhg spine thoracic 2 viewsJustin Andes DO Work Phone: Start: 70-29-9890Yubtndmret exam chest single view Albert Andes DO Work Phone: Start: 59-25-5748Sj head/brain w/o contrast material Albert Andes DO Work Phone: Start: 32-81-7971Thuunbhpvk microscopic onlyMukesh Marley MD Work Phone: Start: 66-13-8092Shwgg dip stick/tablet rgnt auto w/o microscopyMukesh Marley MD Work Phone: Start: 08-64-3150Ik abdomen & pelvis w/contrast materialMukesh Marley MD Work Phone: Start: 86-97-7287Bkygpnctmfllb metabolic panelMukesh Marley MD Work Phone: Start: 44-47-3270Vpwoyvn tobacco smokerAijuanito Nagy Work Phone: Start: 32-06-5657Rntt bld gluc mntr dev cleared fda spec home useAimeki Nagy Work Phone: Start: 55-25-8331Mffhiedupq glycosylated a7pXbwuk Cotten Work Phone: Start: 45-85-8412Poegageukvvbd w/patient 30 minutes Leah Short Work Phone: Start: 99-05-8427Jz lumbar spine w/o contrast material Marita Munoz Work Phone: Start: 91-09-6151Kv thoracic spine w/o contrast materialMarita Munoz Work Phone: Start: 99-02-1136Ayrrz of troponin quantitativeFredy Billingsley Work Phone: Start: 37-03-4778Vqpwp of troponin quantitativeFredy Billingsley Work Phone: Start: 17-82-0708Kkmfi count complete auto&auto difrntl wbcJosallie Billingsley Work Phone: Start: 94-98-7082Cbcyuvoqcke peptideJosallie Billingsley Work Phone: Start: 63-92-2051Aadaewempgu timeJosallie Billingsley Work Phone: Start: 63-72-6058Bmhaoalpkihjg rate rbc automated Fredy Billingsley Work Phone: Start: 71-15-0589Tnaxnqnzfyhgri time partial plasma/whole bloodFredy Billingsley Work Phone: Start: 83-04-4100Rgsapcdzpz exam chest 2 viewsFredy Billingsley Work Phone: Start: 52-00-4503Atffm hip unilateral with pelvis 2-3 viewsFredy Billingsley Work Phone: Start: 67-62-3936Nmw routine ecg w/least 12 lds w/i&r Deion Loaiza Work Phone: start: 19-31-6635Wuggfps [facility] Work Phone: Start: 24-27-7148Rxmsbbr blood reagent stripLamar [facility] Work Phone: Start: 11-36-9911Tejph count complete auto&auto difrntl wbcMa'En Al-Dabbas Work Phone: Start: 31-33-4679Eubsa count complete automatedMa'En Al-Dabbas Work Phone: Start: 59-70-8381Hwtciaf blood reagent stripT[facility] Work Phone: Start: 79-90-7940Yjcrcmg blood reagent stripTucson [facility] Cente[facility] Work Phone: Start: 43-24-5944SURR LAB REPORTHpf ScanningStart: 49-64-1131Sifacyyzxskmwqu and angiography procedure details panelHemrd Martinez Work Phone: Start: 41-16-8877UCSHE METABOLIC PANEL W/ REFLEX TO MG FOR LOW Lei F O Ahmad Work Phone: Start: 75-70-1445Gdsen count complete automatedAli F O Ahmad Work Phone: Start: 94-16-9572Xwtxz of troponin quantitativeAli F O Ahmad Work Phone: Start: 57-80-7049Wjfgc of troponin quantitativeAli F O Ahmad Work Phone: Start: 38-40-9000Oasbcqvtisrywun and angiography procedure details Warren Stephens Work Phone: Start: 10-93-2562Jcesougpdx exam chest single view Galata Fatuma Work Phone: Start: 92-23-3073Gli routine ecg w/least 12 lds w/i&r Galata Fatuma Work Phone: Start: 52-27-3233Unvas of troponin quantitativeS[facility] Work Phone: Start: 96-54-0881Rsghi count complete automatedShenandoah Memorial Hospital Work Phone: Start: 40-15-1887Lngaitlwlfqdn metabolic panelShenandoah Memorial Hospital Work Phone: Start: 55-87-3333Hjuldvlptip peptideShenandoah Memorial Hospital Work Phone: Start: 52-12-2953Nxmfrvraod exam chest single viewEtan E Eitches Work Phone: Start: 48-99-9944Qvugs of troponin quantitativeEtan E Eitches Work Phone: Start: 25-35-2152Gbyva metabolic panel calcium total Mukesh E Eitches Work Phone: Start: 45-26-5169Koloy count complete auto&auto difrntl wbcEtan E Eitches Work Phone: Start: 67-27-8522Zgjzejrzclm peptideEtan E Ayaka Work Phone: Start: 86-42-4963Pkn routine ecg w/least 12 lds w/i&r Mukesh E Ayaka Work Phone: Start: 64-35-2818Xindx hips bilateral with pelvis 3-4 viewsDeion Loaiza Work Phone: start: 36-50-4797Khzjktxnte microscopic onlyDeion Loaiza Work Phone: start: 90-45-5180Fvkiz dip stick/tablet rgnt auto w/o microscopyDeion Loaiza Work Phone: start: 94-33-1527Czcoqxr tobacco smokerVahid Nagy Work Phone: Start: 80-73-8330Zsthl bp <80 mm hgjuanito Nagy Work Phone: Start: 22-57-1233Gtnj test prsmv read direct optical obs pr dateVahid Nagy Work Phone: Start: 37-75-2208Ksnfaqdtfhuvw w/patient 30 minutes Leah Short Work Phone: Start: 97-32-3421Nz tobacco screen rcvd tlkAjoelle Nagy Work Phone: Start: 79-94-8197Zorc bp lt 130 mm hgjuanito Nagy Work Phone: Start: 19-71-2595Nwlzw of thyroid stimulating hormone tshVahid Nagy Work Phone: Start: 75-12-7226Fsgsq count complete auto&auto difrntl wbcAijuanito Nagy Work Phone: Start: 19-49-7896Fzbkdpbnxfxyf metabolic panelVahid Nagy Work Phone: Start: 17-41-2154Tygmx panelVahid Nagy Work Phone: Start: 75-34-2132Wmdzykcpht microscopic onlyAimee M Angelita Work Phone: Start: 16-15-9259Jkart dip stick/tablet rgnt auto w/o microscopyAijuanito Nagy Work Phone: Start: 49-04-5085Wbub bld gluc mntr dev cleared fda spec home useAimeki Nagy Work Phone: Start: 14-46-2489Kpcqq dip stick/tablet rgnt non-auto w/o micrscpAimee Angelita Work Phone: Start: 36-06-1261Shndm bp 80-89 mm hgShawna Holliday Work Phone: start: 56-77-9347Gksrhekjrfnsr w/patient 30 minutes Nitza Mark Work Phone: Start: 48-40-5154Zp tobacco screen rcvd tlkKara Mg Work Phone: Start: 67-22-7266Hlmv bp ge 130 - 139mm hgShawna Holliday Work Phone: Start: 06-89-8947Mpbtp of troponin quantitativeSyed A Darberry Work Phone: Start: 70-99-2998Etvug of lipaseSyed A Darberry Work Phone: Start: 94-75-3970Sdzaz of troponin quantitativeSyed A Fish Work Phone: Start: 51-91-4008Kogfowmgqsmue metabolic panelSyed A Fish Work Phone: Start: 09-30-2591Qjpavabhjk exam chest 2 viewsSyed A Fish Work Phone: Start: 90-32-5645Io head/brain w/o contrast material Wesly A Darberry Work Phone: Start: 69-61-9775Xdtzi of ammoniaSyed A Darberry Work Phone: Start: 79-66-0045Nwoix count complete auto&auto difrntl wbcSyed A Fish Work Phone: Start: 93-47-6159UTAFSRQP REJECTIONSyed A Fish Work Phone: Start: 65-41-2671Xm thorax w/contrast materialMichael L FitzpatrickStart: 23-28-7589Xmkmt dip stick/tablet reagent auto microscopy Nia Naranjo FithillarypatrickStart: 75-67-4417ZNCCV GAS, ARTERIALMichael L Carey Start: 38-07-0008VSFCH-19Michael L FitzpatrickStart: 07-51-6979Fpc routine ecg w/least 12 lds w/i&rMichael L FitzpatrickStart: 53-30-5453Rbsjggtyur exam chest single viewMichael L FitzpatrickStart: 16-74-5596Jdtjs of troponin quantitative Nia Naranjo MohanpatrickStart: 81-61-9863Lgewa metabolic panel calcium totalMichael L FitzpatrickStart: 53-24-6125Weunu count complete auto&auto difrntl wbcMichael L FitzpatrickStart: 38-40-6288Krmldf dgradj products d-dimer quantitative Nia Naranjo MohanpatrickStart: 18-17-2186XYTMPOS, SEPSISMichael L FitzpatrickStart: 34-47-8562Bhzwqkxhhdu peptideMichael L FitzpatrickStart: 33-50-9373IQKGDWGOIV CARBON MONOXIDEMichael L FitzpatrickStart: 39-02-2351NIJSO-19Luis E Bobby Work Phone: Start: 63-17-1442Rtfjqrb tobacco smokerShawna Holliday Work Phone: Start: 57-29-5046Zpcwf bp <80 mm hgShawna Holliday Work Phone: Start: 75-13-5972Ooay bld gluc mntr dev cleared fda spec home useShawna Holliday Work Phone: Start: 53-70-8825Cwteqgrtyb glycosylated q8nGzuoShawna Holliday Work Phone: Start: 85-40-3441Eyxytlaiflbqy w/patient 30 minutes Leah Short Work Phone: start: 75-03-7667Ka tobacco screen rcvd tlJesusita Holliday Work Phone: Start: 79-99-2432Yrwb bp lt 130 mm hgShawna Holliday Work Phone: Start: 03-65-1918Sfvzs metabolic panel calcium total Ali F O Ahmad Work Phone: Start: 30-31-4127Yfurx count complete automatedAli F O Ahmad Work Phone: Start: 40-61-0652QYGMW-19Luis E Bobby Work Phone: Start: 14-56-8235Vmfuwgblclgtj w/patient 30 minutes Leah Short Work Phone: Start: 45-60-7819Oimw tthrc r-t 2d w/wom-mode compl spec&colr Claire F O Ahmad Work Phone: Start: 85-21-0024Emkwtqahmihxk w/patient 30 minutes Leah Short Work Phone: start: 53-54-4123Tmqplhs blood reagent stripJames A Deb Work Phone: Start: 79-73-1316Roggizj blood reagent stripJames A Deb Work Phone: Start: 86-10-0693Yyxpe of magnesiumEbere Harish Work Phone: Start: 42-65-3328KWOIG METABOLIC PANEL W/ REFLEX TO MG FOR LOW KEbere Harish Work Phone: Start: 16-98-5314Twgdxpc blood reagent stripJames A Deb Work Phone: Start: 83-27-3065Efcmnsn blood reagent stripJames A Deb Work Phone: Start: 49-81-8272Igdkhuj blood reagent stripJames A Deb Work Phone: start: 02-29-0914Fzdncyk blood reagent stripJames A Deb Work Phone: Start: 13-15-9817Zxaep count complete auto&auto difrntl wbcEbere Harish Work Phone: Start: 40-49-7227Zgzgbtx blood reagent stripJames A Deb Work Phone: Start: 35-04-7819Wcgxayo blood reagent stripJames A Deb Work Phone: Start: 51-32-0100Callbls blood reagent stripJames A Deb Work Phone: start: 23-44-7326BWNFW METABOLIC PANEL W/ REFLEX TO MG FOR LOW KSrinivas Antonio Work Phone: Start: 12-87-2676Nxqetoj blood reagent stripJames A Deb Work Phone: Start: 99-92-1906Icibohj blood reagent stripJames A Deb Work Phone: Start: 44-40-6643VPCJZAXULVEbjulhhs Antonio Work Phone: start: 10-46-6228Cyhfbfs blood reagent stripJames A Deb Work Phone: start: 75-30-3782CFFPV METABOLIC PANEL W/ REFLEX TO MG FOR LOW KSrinivas Antonio Work Phone: Start: 00-34-9406Vnych count complete auto&auto difrntl wbcSrinivas Antonio Work Phone: Start: 97-55-4135Dxuiftc blood reagent stripJames A Deb Work Phone: start: 32-47-6516Peqtobj blood reagent stripJames A Deb Work Phone: start: 05-53-3504Lqowm count hemoglobinRathnavali Antonio Work Phone: Start: 82-22-3088Tpwjcym blood reagent stripJames A Deb Work Phone: start: 55-81-2952Zxkdsnj blood reagent stripJames A Deb Work Phone: Start: 80-22-0573KPFRX METABOLIC PANEL W/ REFLEX TO MG FOR LOW KJames A Deb Work Phone: Start: 32-26-0049Tooxp count complete auto&auto difrntl wbcJames A Deb Work Phone: Start: 53-58-7190Ndymbpa blood reagent stripJames A Deb Work Phone: Start: 74-60-0044Pjshxux blood reagent stripJames A Deb Work Phone: Start: 81-60-5673Rtdjjds blood reagent stripJames A Deb Work Phone: Start: 32-35-7378Ikj routine ecg w/least 12 lds i&r onlyAstrid Ross Work Phone: Start: 41-44-1452XDG REPORTHpf ScanningStart: 1959Bjapwml blood reagent stripJames A Deb Work Phone: Start: 65-18-7650Vvgumfat mycoplsmRathnavali Antonio Work Phone: Start: 15-80-4173Qingv s aureus methicillin resist amp probe tqLuis E Bobby Work Phone: Start: 59-48-8637Refcrtb blood reagent stripJames A Deb Work Phone: Start: 58-71-9689Tqjci of triglyceridesRatika Aryan Work Phone: Start: 67-71-4659CLVLA METABOLIC PANEL W/ REFLEX TO MG FOR LOW KJames A Deb Work Phone: Start: 00-11-4575Mtzsp count complete auto&auto difrntl wbcJames A Deb Work Phone: Start: 60-67-3012Lxqevbh blood reagent stripJames A Deb Work Phone: Start: 99-20-4848Abapnua blood reagent stripJames A Deb Work Phone: Start: 44-20-5044Uczjznn blood reagent stripJames A Deb Work Phone: Start: 36-87-4601Yspiy respiratry probe & rev trnscr 12-25 targetVinod Kim Work Phone: Start: 21-45-5450LNBEP-19Vinod Kim Work Phone: Start: 04-08-5468Nsj routine ecg w/least 12 lds i&r onlyRatika Aryan Work Phone: Start: 06-87-2955SAF REPORTHpf ScanningStart: 55-92-5302Nvksk of lactateJames A Deb Work Phone: Start: 98-36-5978Lvvou of thyroid stimulating hormone tshJames A Deb Work Phone: Start: 62-24-7899YOQUK METABOLIC PANEL W/ REFLEX TO MG FOR LOW KJames A Deb Work Phone: Start: 47-03-5174Ttdod count complete auto&auto difrntl wbcJames A Deb Work Phone: Start: 25-59-9092N-reactive proteinJames A Deb Work Phone: Start: 05-64-0887Fkgndaf blood reagent stripJames A Deb Work Phone: Start: 37-28-3603Bnbwfbm blood reagent stripJames A Deb Work Phone: Start: 98-31-4474Tqzlcuydpo microscopic onlyRatika Aryan Work Phone: Start: 12-48-8162Cbdla dip stick/tablet rgnt auto w/o microscopyRatika Aryan Work Phone: Start: 78-65-1928Kcakkhw blood reagent stripJames A Deb Work Phone: Start: 91-96-9087SLKBOLR, BLOOD 1Ratika Aryan Work Phone: Start: 63-73-9322Mispagcxee exam abdomen 1 viewBrendan Hum Work Phone: Start: 58-28-7501Ibzqljq blood reagent stripJajordan Lane Deb Work Phone: Start: 30-54-3445Urmyuzyfxl exam chest single view Ratidemarcus Aryan Work Phone: [phone]: 96-90-3883NPTJLGER BLOOD GAS, POCJajordan A Deb Work Phone: Start: 88-63-8225Rnrh bld gluc mntr dev cleared fda spec home useJames A Deb Work Phone: Start: 48-19-4224Ceitgik bacterial blood aerobic w/id isolatesRatika Aryan Work Phone: Start: 63-94-8616Veiul of ferritinRatika Aryan Work Phone: Start: 08-35-3594Xpykz of magnesiumRatika Aryan Work Phone: Start: 99-06-8355Juauu of troponin quantitativeRatika Aryan Work Phone: [phone]: 31-80-2590GVYGA METABOLIC PANEL W/ REFLEX TO MG FOR LOW KRatika Aryan Work Phone: Start: 20-53-2683Rfmbtvu ionizedRatika Aryan Work Phone: Start: 59-10-0180Lhjpqc bodies serum quantitative Ratika Aryan Work Phone: Start: 31-06-5808Yekuhdc dehydrogenase ldhRatika Aryan Work Phone: [phone]: 64-09-3695MSXLFVSZ BLOOD GAS, POCJajordan A Deb Work Phone: Start: 06-66-3823Borx bld gluc mntr dev cleared fda spec home useJajordan A Deb Work Phone: Start: 24-24-2135CJOBCGAQYJLrlfnc Aryan Work Phone: Start: 83-34-2404PKYHF GAP (CALC) POCChago Boyd Work Phone: Start: 06-83-7809Dqdwm count hemoglobinJajordan Lane Deb Work Phone: Start: 17-82-4205WVBLQPM, IONIC (POC)Chago Lane Deb Work Phone: Start: 39-59-6881Tbdbmtcs [Moles/Vol]Chago Lane Deb Work Phone: Start: 08-33-2139PCMZYODQIB W/GFR POINT OF CAREChago Cherrya Work Phone: Start: 88-94-8934Tcst bld gluc mntr dev cleared fda spec home useChago Lane Deb Work Phone: Start: 18-17-0811VVUUTQ ACID,POINT OF CAREChago A Deb Work Phone: Start: 36-35-4180OOGJC VENOUS GAS, POINT OF CAREChago Lane Deb Work Phone: Start: 48-15-6859NGWCLXTQOAJS PANEL, POCChago Lane Deb Work Phone: Start: 47-96-2352Zxywhckix [Moles/Vol]Chago Lane Deb Work Phone: Start: 55-45-2766Hkeqdl [Moles/Vol]Chago Lane Deb Work Phone: Start: 43-82-2860Knots s aureus methicillin resist amp probe tqLuis E Bobby Work Phone: Start: 81-39-7604Szib ia mult step method nos each organismRatika Aryan Work Phone: Start: 11-22-0752LKJAA PNEUMONIAE ANTIGENRatika Aryan Work Phone: Start: 50-68-4270Nkptqsp blood reagent stripChago Lane Deb Work Phone: Start: 36-62-0191EPUTIWEFPWS CARE EVALUATION ONLY Ratika Aryan Work Phone: Start: 23-91-6069Eh thorax w/contrast materialSyed A Fish Work Phone: Start: 78-47-7459Yvym screen class list aTyler Enbase Work Phone: Start: 13-36-8806Gpmswpkbaz microscopic onlyTyler Enbase Work Phone: Start: 80-36-2732Ivzze dip stick/tablet rgnt auto w/o microscopyTyler Enbase Work Phone: Start: 70-51-2673Ebmmy of ammoniaTyler Enbase Work Phone: Start: 18-96-1607VNVHVN/HUMIDIFIED HIGH FLOW NASAL CANNULASyed A Fish Work Phone: Start: 16-12-3826Pcq routine ecg w/least 12 lds w/i&r Luis Enbase Work Phone: Start: 07-54-8540Qzqraybtjy exam chest single view Luis [employer]base Work Phone: Start: 48-35-9272JWULN GAS, ARTERIALTyler Enbase Work Phone: Start: 51-62-3680Vr head/brain w/o contrast material Luis [employer] Work Phone: Start: 49-85-0282Govtm of ethanolTyler Enbase Work Phone: Start: 24-70-8869Jjaus of troponin quantitativeTyler Enbase Work Phone: Start: 19-62-3270Hcvyl count complete auto&auto difrntl wbcTyler Enbase Work Phone: Start: 41-32-0097Eiezzhtm kinase totalTyler Enbase Work Phone: Start: 13-40-2511Fcvukn dgradj products d-dimer quantitativeTyler Enbase Work Phone: Start: 31-66-6177Dpwzjqicihg peptideTyler Enbase Work Phone: Start: 44-28-2219Jfrgmfgpbkq timeTyler Enbase Work Phone: Start: 30-99-5090Xuyofdf gave verbal consent for telehealthjuanito Rowlandtart: 77-11-0167DAZUN CANNULA OXYGENEtan E Eicas Work Phone: Start: 71-38-6891Mbanl of troponin quantitativeWiadalidwinter Foley Work Phone: Start: 81-03-6312Enhsj count complete auto&auto difrntl wbcWisuryarashida Foley Work Phone: Start: 90-95-4371Ismrjnrccnvtk metabolic panelWisuryarashida Foley Work Phone: Start: 14-50-6964Krs routine ecg w/least 12 lds w/i&r Ab Ariana Foley Work Phone: Start: 01-86-3833Mjfye hand minimum 3 viewsTyler Emily Work Phone: Start: 04-57-7249Nuoqm bp 80-89 mm hgVahid Nagy Work Phone: Start: 31-68-5930Cf tobacco screen rcvd tlkAjoelle Nagy Work Phone: Start: 38-64-3930Rdwx bp >/= 140 mm hgVahid Nagy Work Phone: Start: 15-24-1708JDELZNM, WHOLE BLOODMark Albetr De Santiago MD Work Phone: Start: 94-06-2508STPFTQI, WHOLE BLOODMark Albetr De Santiago MD Work Phone: Start: 24-94-6743Xjyal metabolic panel calcium total Ziggy Smith MD Work Phone: Start: 14-25-7694LUVOHPI, WHOLE BLOODMark Albert De Santiago MD Work Phone: Start: 26-57-8975ALPOXPH, WHOLE BLOODMark Albert De Santiago MD Work Phone: Start: 73-44-3175Wyjiq s aureus methicillin resist amp probe tqMark Albert De Santiago MD Work Phone: start: 03-81-6335MOHNIZG, WHOLE BLOODMark Albert De Santiago MD Work Phone: Start: 02-93-6025TPCZSXV, WHOLE BLOODMark Albert De Santiago MD Work Phone: Start: 22-99-8351Vxwvj metabolic panel calcium total Ziggy Smith MD Work Phone: Start: 79-63-5055XQLTWCI, WHOLE BLOODMark Albert De Santiago MD Work Phone: Start: 54-03-7673RGZQWIA, WHOLE BLOODMark Albert De Santiago MD Work Phone: Start: 27-90-0993ZORPBVC, WHOLE BLOODMark Albert De Santiago MD Work Phone: Start: 01-92-6409Gnujl metabolic panel calcium total Ziggy Smith MD Work Phone: Start: 85-44-1684HJTBNAV, WHOLE BLOODMark Albert De Santiago MD Work Phone: Start: 49-70-3352UACGD GAS, ARTERIALChristopher Cynthia Smith MD Work Phone: Start: 19-85-8727Aydaz of lactateOliva Tristan [employer] Work Phone: Start: 87-22-0117LALXWWY, WHOLE BLOODMark Albert De Santiago MD Work Phone: Start: 04-22-2019 End: 43-60-6257QAFDG GAS, ARTERIALChristopher Cynthia Smith MD Work Phone: Start: 91-08-2871Limqsialnivcr metabolic panelMark Albert De Santiago MD Work Phone: Start: 14-62-0598Zynnkkl bacterial quanttative colony count urineSyaj Whitten MD Work Phone: Start: 78-60-6981Itpzb dip stick/tablet rgnt auto w/o microscopySyaj Whitten MD Work Phone: Start: 89-55-0070MTF CLINICAL BEDSIDE SWALLOW EVALUATION & TREATMENTMark Albert De Santiago MD Work Phone: Start: 59-10-0033Xotooko bacterial blood aerobic w/id isolatesSyed Ariana Whitten MD Work Phone: Start: 09-87-8991Xd thorax w/contrast materialJustin Andes DO Work Phone: Start: 06-25-4565CSCIU METABOLIC PANEL W/ REFLEX TO MG FOR LOW KJustin Andes DO Work Phone: Start: 50-85-1100Payyorv bacterial blood aerobic w/id isolatesSyed Ariana Whitten MD Work Phone: Start: 29-57-7815Wxuvknr function panelSyed Ariana Whitten MD Work Phone: Start: 21-84-3949Lyaoxjt [Moles/volume] in Serum or PlasmaJustin Andes DO Work Phone: Start: 10-11-7832Lhouxdqxpuz timeSyed Ariana Whitten MD Work Phone: Start: 52-64-7932Jissfjlayq exam chest 2 viewsJustin Andes DO Work Phone: Start: 60-49-2926Zzasu bp >/= 90 mm hgAijuanito Nagy Work Phone: start: 84-29-4166Akah test prsmv read direct optical obs pr dateVahid Nagy Work Phone: Start: 48-60-7760Dwnjjcbamrxva w/patient 30 minutes Zach Grimaldo Work Phone: Start: 41-35-7449Wbrw bp lt 130 mm hgAijuanito Nagy Work Phone: start: 55-49-4486Bk head/brain w/o contrast material Harish Sebastian DO Work Phone: Start: 92-50-4068Yb angiography neck w/contrast/noncontrastAlexseth Sebastian DO Work Phone: Start: 96-79-3838Bkkqm of troponin quantitative Harish Sebastian DO Work Phone: Start: 35-85-0803AILLY METABOLIC PANEL W/ REFLEX TO MG FOR LOW KAlexander Ariana Bloomfiretaran DO Work Phone: Start: 89-80-6950Rla routine ecg w/least 12 lds w/i&r Harish Sebastian DO Work Phone: Start: 04-12-2019 End: 04-56-3325Oniqy spine cervical 2 or 3 viewsAlexander Ariana BloomfirejanieCubbying DO Work Phone: Start: 01-05-1047Pkysi bp >/= 90 mm hgAimee Angelita Work Phone: start: 82-96-4100Thkh bp >/= 140 mm hgAimee Augmedix Work Phone: start: 24-32-5674Ctzro bp 80-89 mm hgCassie King Work Phone: Start: 61-05-7174Vlnn bp ge 130 - 139mm hgCassie King Work Phone: start: 67-76-3889Wlhdy dip stick/tablet reagent auto microscopyMichael Oertly Work Phone: Start: 32-96-2959Hha abdl aorta&bi iliofem w/contrast&postpMichael Oertly Work Phone: Start: 59-15-5541Sxrzm of lipaseMichael Oertly Work Phone: Start: 52-73-3450Evsmw of troponin quantitativeMichael Oertly Work Phone: Start: 92-44-8629Uqigs count complete auto&auto difrntl wbcMichael Oertly Work Phone: Start: 81-70-2411Iyzilqqvzzxmr metabolic panelMichael Oertly Work Phone: Start: 26-02-9048Hdzsepditjm timeMichael Oertly Work Phone: Start: 23-38-9282Rkj spinal canal lumbar w/o contrast materialMelcarlos Fritz Work Phone: Start: 12-29-1770Hnkxd bp <80 mm hgVahid Nagy Work Phone: start: 56-90-3149Cllr test prsmv read direct optical obs pr dateVahid Nagy Work Phone: Start: 41-39-6827QNXXDAWPZDIY (SYSTEMIC)Vahid Nagy Start: 63-80-9783Zjwfhaormorho w/patient 30 minutesStevernestina Grimaldo Work Phone: Start: 22-20-3020Autc bp ge 130 - 139mm hgVahid Nagy Work Phone: start: 65-45-5625Canz test prsmv read direct optical obs pr dateLee Karla Bryan Work Phone: Start: 69-25-7325Ntppkuk of influenza vaccinationAijuanito Rowlandtart: 68-04-3819Zycrc of troponin quantitativeJames P Kian Work Phone: Start: 64-27-6796Nhnsj spine cervical 2 or 3 views Chago Langston Work Phone: Start: 18-33-1180Iktjf spine lumbosacral 2/3 views Chago Langston Work Phone: Start: 76-46-9073Khaqj shoulder complete minimum 2 viewsJames P Kian Work Phone: Start: 79-50-4554Srfhmcqpdd exam chest 2 viewsJames P Kian Work Phone: Start: 14-56-2327Nik routine ecg w/least 12 lds w/i&r Chago Langston Work Phone: Start: 19-42-4966Ygbyv of troponin quantitativeJames P Kian Work Phone: Start: 54-63-3464ZBHQP METABOLIC PANEL W/ REFLEX TO MG FOR LOW KJames P Kian Work Phone: Start: 06-03-5263Nceer count complete auto&auto difrntl wbcJames P Kian Work Phone: Start: 61-94-1807Ejupk dip stick/tablet rgnt auto w/o microscopyJames P Kian Work Phone: Start: 33-97-9598Wmzdh shoulder complete minimum 2 viewsCassie L King Work Phone: Start: 10-73-2781Gauzf bp <80 mm hgCassie King Work Phone: start: 87-23-0909Nfhyzdqmmt glycosylated f6lAfulye King Work Phone: Start: 79-49-7353Xemldqicq tromethamine injCassie King Work Phone: Start: 06-25-3642Rz-focused hlth risk assmt score doc stnd instrmCassie King Work Phone: Start: 80-91-1846Mwyc bp lt 130 mm hgCassie King Work Phone: Start: 29-49-8721Swzqhzqcdge prophylactic/dx injection subq/imCassie King Work Phone: Start: 79-64-0812Rrgrv bp 80-89 mm hgAimee Angelita Work Phone: Start: 59-92-7169Ktdi test prsmv read direct optical obs pr dateVahid Nagy Work Phone: Start: 12-57-7517Oajb bp ge 130 - 139mm hgAimee Angelita Work Phone: Start: 69-35-5097Vevzo bp <80 mm hgAimee Angelita Work Phone: Start: 49-39-2039Zsrs test prsmv read direct optical obs pr dateAijuanito Nagy Work Phone: Start: 12-32-7265Objbthjbtjefh w/patient 30 minutes Zach Grimaldo Work Phone: Start: 13-06-0753Sbvr bp >/= 140 mm hgAijuanito Nagy Work Phone: Start: 94-88-5071Uvhez dip stick/tablet rgnt non-auto w/o micrscpAjoelle Nagy Work Phone: Start: 11-42-0703Gyjbr occult fecal hgb deter ia qual feces 1-3Aimee Angelita Work Phone: Start: 58-18-1855Ctaip bp 80-89 mm hgAimee Angelita Work Phone: Start: 87-31-2376Xwui bld gluc mntr dev cleared fda spec home useVahid Nagy Work Phone: [phone]: 68-46-3465Ycehhqbyee glycosylated n6kZxrsyjuanito Nagy Work Phone: [phone]: 45-33-1738Vnpr bp >/= 140 mm hgCone Health Women'S Hospitalki Nagy Work Phone: Start: 87-84-8403UIHAYOFL MELLITUSAicoe DaniellaBradley Hospitaltart: 71-39-7737Vyyfv bp <80 mm hgCone Health Women'S Hospitalki Nagy Work Phone: Start: 75-63-1553Ugqb test prsmv read direct optical obs pr Veronica Nagy Work Phone: Start: 87-75-9095Zhde bld gluc mntr dev cleared fda spec home useVahid Nagy Work Phone: Start: 18-47-8786Vtgtubndfa glycosylated f5lOfkybjuanito Nagy Work Phone: Start: 02-18-1063Uqdgagdcpwnww w/patient 30 minutes Zach Grimaldo Work Phone: Start: 14-99-3913Vhpl bp lt 130 mm hgjuanito Nagy Work Phone: Start: 86-00-9183Yvdn test prsmv read direct optical obs pr Veronica Nagy Work Phone: Start: 61-18-5230sghbugox hospitalizationsjuanito Nagy Start: 48-02-5582Pvsr test prsmv read direct optical obs pr Veronica Nagy Work Phone: start: 97-21-2346RyouglakmedlejhZghrj [facility] Centertart: 83-07-8942KtttznmzjjrcxkbHedsb [facility] Centertart: 44-85-9802Rvlx test prsmv read direct optical obs pr Veronica Nagy Work Phone: start: 82-44-2821Mspg bld gluc mntr dev cleared fda spec home useCone Health Women'S Hospitalki Nagy Work Phone: start: 03-67-2930Tidmefolim glycosylated g3lYxvrz Angelita Work Phone: start: 88-40-7253CXYZZGKMA INTERVERTEBRAL DISCAiOak Valley Hospitaltart: 59-70-8005IlaqhmxirhhoBoltk CottenStart: 52-47-8147ZRSTUWJSCMOSYK DISC DEGENERATIONSouthwestern Vermont Medical Centertart: 80-64-0663Abn/trnsxj flp tube abdl/vag appr uni/biSouthwestern Vermont Medical Centertart: 92-43-0002Fpntbjgz of fallopian tubeHca HealthcareenStart: 40-21-7493LHPZYBZGqunb CottenStart: 59-35-1581exjm medical/surgical history [use for free text]VahidGifford Medical Centertart: 12-30-8981Yxycmsmtsfsz transluminal coronary angioplastySouthwestern Vermont Medical Centertart: 48-73-5630Vxxtk abdominal hysterect w/wo rmvl tube ovaryAiOak Valley Hospitaltart: 01-94-4637Fwgkc x-raySouthwestern Vermont Medical Centertart: 02-10-2018 Colorectal Screening Obtain ResultsHca Healthcaretart: 43-45-4805Nwlayytuny Screening Results in ChartHca Healthcaretart: 01-20-2018 End: 12-15-4667Oabtivjzgl qual/semiquant except immunoassaysAimeNorthwestern Medical Centertart: 33-37-4082SQ A1C LEVEL LT 7.0%Hca Healthcaretart: 31-82-4613AkchdcqohwlhzNawge Cotttart: 11-26-2017 End: 06-81-8461Nprl bld gluc mntr dev cleared fda spec home useVahid Nagy Start: 11-26-2017 End: 27-56-9927Jdwuqgztja glycosylated f5wKbjcdjuanito Rowlandrt: 74-67-2025Rgj bact xcpt urine blood/stool aerobic isoljuanito Rowlandrt: 20-58-0487Ddocvbdl Therapy.Singh Azevedoart: 26-04-7950Kufwrxpsixrkx w/patient 30 minutesStevNeshoba County General Hospitalart: 09-11-2017 End: 55-25-1367Imoy bld gluc mntr dev cleared fda spec home useAijuanito Angelita Start: 09-11-2017 End: 12-48-5121EXS2 AdministeredStevNeshoba County General Hospitalart: 64-54-3437BBTJC BP >/= 90 MM HGSteTallahatchie General Hospitalart: 57-36-1284UUZZ BP >/= 140 MM HGSMon Health Medical Center: 08-16-2017 End: 17-39-1047Wfny bld gluc mntr dev cleared fda spec home useVahid Angelita Start: 70-15-7296Dnfq Management.Singh Galvinart: 08-06-2017 End: 45-19-1476L-reactive proteinAicoki Rowlandrt: 08-06-2017 End: 18-99-2907Ryecpsilhyfpl metabolic panelAijuanito Rowlandrt: 08-06-2017 End: 12-82-8476Rdn bone density study 1/> sites axial skelAjoelle Rowlandrt: 08-06-2017 End: 59-42-3559Ejqa bld gluc mntr dev cleared fda spec home useVahid Breweren Start: 08-06-2017 End: 45-37-7169Qutvjeruuhe analyte qual/semiqual multiple stepAimeki Rowlandtart: 08-06-2017 End: 57-43-4090Twtwc spine cervical 2 or 3 viewsAicoki Brewertart: 08-06-2017 End: 68-64-1271Yccij spine lumbosacral 2/3 viewsAijuanito Rowlandtart: 08-06-2017 End: 99-63-9446Yudsi spine thoracic 2 viewsAijuanito Rowlandtart: 08-06-2017 End: 11-42-2995Vwnhnpnmrnfvr rate rbc automatedAijuanito Rowlandrt: 07-29-2017 End: 18-01-1671Ipir bld gluc mntr dev cleared fda spec home useAimeki Angelita Start: 07-29-2017 End: 57-92-7220Gpqlrngbqo glycosylated f0cXrmxtrWilson Memorial Hospitalart: 02-20-2017 End: 99-68-0497Dltsfm Services Office VisitSMon Health Medical Center: 62-71-9719Bymjm spine lumbosacral 2/3 viewsAijuanito Rowlandtart: 24-97-6481XC A1C LEVEL 7.0-9.0% Zach Dillanart: 01-16-2017 End: 03-81-3206Zocbvv Services Office VisitSHampshire Memorial Hospitalart: 41-90-7956SVAIV BP <80 MM [facility] Centerart: 48-12-9549OW A1C LEVEL 7.0-9.0%Zach Dillan Start: 71-60-9288HOPF BP LT 130 MM [facility]: 86-34-6029Npmwlaedit Screening Results in [facility]: 07-70-1065Qcros of thyroid stimulating hormone tshStWilson Memorial Hospitalart: 13-77-0367Bfwtq count complete auto&auto difrntl wbcStWilson Memorial Hospitalart: 25-38-6368Bbdzzouryo venous blood venipunctureStWilson Memorial Hospitalart: 12-14-2016 End: 35-65-6003Uelyblbwpsyqk metabolic panelSMon Health Medical Center: 12-14-2016 DIAST BP <80 MM [facility] Centerart: 12-14-2016 End: 88-38-8046Lkdndexpm c antibodyStWilson Memorial Hospitalart: 70-60-3937XE A1C LEVEL LT 7.0%Zach Grimaldoart: 12-95-6847Mhldy panelSMon Health Medical Center: 37-67-9059YIC9 AdministeredStWilson Memorial Hospitalart: 71-45-8914Yfsbzrwkbkqco w/patient 30 minutesStevNoxubee General Hospital: 92-27-1221IJXCT NegativeSMon Health Medical Center: 01-62-6506Gsmrquxub, Brief Intervention, Referral and Treatment Zach Dillanart: 66-19-4466ZSNI BP LT 130 MM [facility] Centerart: 12-14-2016 End: 69-88-9247GVBH EXAM PERFORMEDStWilson Memorial Hospitalart: 12-14-2016 End: 09-56-1542Ftrp bld gluc mntr dev cleared fda spec home useVahid Nagy Start: 12-14-2016 End: 04-11-0467Svcnsgkego glycosylated d9aCggbzr [facility] Centerart: 54-82-8524XMM0 AdministeredSternestina Dillanart: 05-96-0102Iwaovyneerywl w/patient 30 minutes Zach Dillanart: 57-84-2441SZTML Pre-Screening *NEGATIVE*Zach Grimaldo Start: 27-06-8935Dsnufwxnm, Brief Intervention, Referral and Treatment (Indicate category below)Zach Dillanart: 99-02-6056Mbdvncq cessation educationSternestina [facility] Centerart: 78-08-3454CzbpsrhilhmEgnrmt Iacob MD Work Phone: Start: 26-82-4711Uojyp of thyroid stimulating hormone tshSternestina [facility] Centerart: 35-38-3221Bgzpw count complete auto&auto difrntl wbc Zach DillanStart: 16-63-2614Zjafnixasv venous blood venipunctureSternestina Dillanart: 03-11-2015 End: 18-02-4827Nmtrmdmfxwlka metabolic panelSHampshire Memorial Hospitalart: 60-52-9609Troc screen multi drug classStWilson Memorial Hospitalart: 91-88-3520Lldjl panelSHampshire Memorial Hospitalart: 70-96-8171Vcr not indicatedStWilson Memorial Hospitalart: 44-61-9272Iqor bld gluc mntr dev cleared fda spec home useAicoki DaniellaBradley Hospitalrt: 03-11-2015 Mammogram, screeningAicoki 81st Medical Grouprt: 19-38-5966Qzlraaymjt Health Coordination of Carekamillaernestina Dillanart: 02-10-2015 End: 40-70-3789Ygaafqlbnnc w/biopsy single/multipleSternestina Dillanart: 56-09-4872ZSW4 AdministeredMesilla Valley Hospitalernestina Dillanart: 97-98-8462Cnlfdmtwkgbes w/patient 30 minutesSternestina Grimaldoart: 61-09-9941Vcibrrmi to dental for routine/urgent dental care.Zach Dillanart: 97-57-1991WLWQY Pre-Screening *NEGATIVE*Zach Dillanart: 12-95-1278Ajkvsie cessation educationSternestina [facility] Centerart: 17-74-4741Syincivta, screeningAie Janettrt: 02-10-2015 End: 68-67-8182LPGM EXAM PERFORMEDStshirley GrimaldoThomasville: 02-10-2015 End: 52-20-5925Hkga bld gluc mntr dev cleared fda spec home useSjeane Grimaldo Start: 02-10-2015 End: 55-28-5630Puzmvmlfhw glycosylated a4gHtxvnr art: 02-10-2015 End: 91-33-8224IXN SCREENING *in-house*Zach GrimaldoStart: 02-10-2015 End: 18-46-1244Cabka albumin semiquantitativeSternestina art: 02-10-2015 End: 54-26-4095Xpkox dip stick/tablet rgnt non-auto w/o micrscpStenathalie Grimaldo History of placement of stent for coronary artery diseaseH/O heart artery stent DO Carlo Grimaldo Work Phone: NEGATED: Highlighted row has not occurred!Start: 83-15-7045qg recent change in medical historyAijuanito RedmanGATED: Highlighted row has not occurred!Start: 69-89-6434xegxhpzk a history of cancerVahid Nagy NEGATED: Highlighted row has not occurred!Start: 94-40-1900ndhfsvvr physical traumaAimee Angelita Plan of Treatment DateCare ActivityDetailAuthorStart: 47-98-1025Diptmsarj for malignant neoplasm of colonSentara [facility]: 33-77-2445ZGsQ,Tdap and Td Vaccines (3 - Td or Tdap)DTaP,Tdap and Td Vaccines (3 - Td or Tdap)[facility] Start: 48-24-4680LYkA/Tdap/Td vaccine (3 - Td or Tdap)DTaP/Tdap/Td vaccine (3 - Td or Tdap)[facility]: 27-31-8051CNYQV-19 Vaccine (#1)COVID- 19 Vaccine (#1)[facility] on above:Postponed from 03/01/1960 (Patient Refused)Start: 69-74-2671DQhI/Tdap/Td vaccine (2 - Td or Tdap)DTaP/Tdap/Td vaccine (2 - Td or Tdap)[facility]: 01-07-2027 DTaP/Tdap/Td vaccine (2 - Td)DTaP/Tdap/Td vaccine (2 - Td)[place] Start: 94-48-8068Tmjcgvq vaccinationAIDAN SolorzanoOhioHealth Arthur G.H. Bing, MD, Cancer Centertart: 85-81-3656Ryyzoxj ScreeningTobacco ScreeningNovant Health Huntersville Medical Centertart: 35-69-9574Cqunj BMI ScreeningAdult BMI ScreeningNovant Health Huntersville Medical Centertart: 14-22-7067ZWX test (Diabetes, CKD 3-4, OR last GFR 15-59)GFR test (Diabetes, CKD 3-4, OR last GFR 15-59)[facility]: 40-82-2195Nmjujlpesx A1c mamafecezdiM8R test (Diabetic or Prediabetic)Bon [facility]: 24-18-0837VWH test (Diabetes, CKD 3-4, OR last GFR 15-59)GFR test (Diabetes, CKD 3-4, OR last GFR 15-59)[facility]: 47-23-1567CCE test (Diabetes, CKD 3-4, OR last GFR 15-59)GFR test (Diabetes, CKD 3-4, OR last GFR 15-59)Bon [facility]: 78-51-3825Kyqnlaas foot examinationDiabetic foot examBon [facility]: 75-76-2385Pgfetwdsfr A1c svcxkyvukwzB6B test (Diabetic or Prediabetic)[facility]art: 91-15-1843Kllgxnqzp for malignant neoplasm of lungLung Cancer Screening &/or CounselingBon [facility] Street Hospitalart: 68-71-9853Uzvqs BMI ScreeningAdult BMI ScreeningNovant Health Huntersville Medical Centertart: 75-01-2305Enpacde ScreeningTobacco ScreeningNovant Health Huntersville Medical Centertart: 51-90-2461Xcqvy BMI ScreeningAdult BMI ScreeningNovant Health Huntersville Medical Centertart: 84-99-6349Qmwiavh ScreeningTobacco ScreeningUC [facility] Start: 59-93-1186Bvnknxhife MonitoringDepression MonitoringBon Wilson Street Hospitalart: 18-58-2768Uwttpavduz ScreeningDepression ScreeningCleveland Clinic Children's Hospital for Rehabilitation SystemStart: 87-46-0737Obgbtdz ScreeningTobacco ScreeningCleveland Clinic Children's Hospital for Rehabilitation System Start: 26-69-7567Rteco BMI ScreeningAdult BMI ScreeningUC [facility] Start: 89-34-0303Ghckj cancer screen colonoscopyColon cancer screen colonoscopy [facility], [place]Start: 42-25-7107Cthdhfhkd for malignant neoplasm of colon [facility]burgStart: 37-01-8199Xqbae BMI ScreeningAdult BMI ScreeningCleveland Clinic Children's Hospital for Rehabilitation SystemStart: 41-40-8999Yyhst BMI ScreeningAdult BMI ScreeningCleveland Clinic Children's Hospital for Rehabilitation SystemStart: 44-80-8727Baqrzkf ScreeningTobacco ScreeningCleveland Clinic Children's Hospital for Rehabilitation SystemStart: 01-14-2025 End: 41-57-9071Wwvphna encounter yocjzlsnv29/16/2025 1:45 PM EDT Office Visit [facility] [address] [place] [address] Zach Saravia DPM [address] [place] [address] ArrivedNOMS Dhillon PodiatryComment on above:ArrivedStart: 90-36-6389Xhnoq BMI ScreeningAdult BMI ScreeningNovant Health Huntersville Medical Centertart: 06-45-7565Gcqoqgw ScreeningTobacco ScreeningNovant Health Huntersville Medical Centertart: 12-22-2024 End: 14-85-4968Wihieoomv zpbonkinh92/23/2025 2:00 PM EDT Scheduled Telephone Encounter [facility] [address] [place] [address] [address] [place] [address] Osmar Rodriguez MD [address] [place], [place] [id number] TELEPHONE VISIT f/u [facility] Primary [facility] HospitalComment on above:TELEPHONE VISIT f/u [facility] centerStart: 79-62-2050Mbpjlgjha vaccinationInfluenza Vaccine [facility] SystemStart: 13-87-6133JNH test (Diabetes, CKD 3-4, OR last GFR 15-59)GFR test (Diabetes, CKD 3-4, OR last GFR 15-59)[facility] Start: 36-78-3441Zmvebiumrn A1c oxhcdrfwupaV7R test (Diabetic or Prediabetic)[facility]ITALStart: 09-38-4908Tcxky panelLipidsBON [facility] Start: 88-08-3979Xqgziyohn vaccinationBon [facility] OhioStart: 10-14-2024 End: 57-75-6342Vifmoyf encounter hwxlsgkop52/16/2025 1:45 PM EDT Office Visit [facility] VASC[facility] Part [address] [place] [address] Gordo Colmenares MD [address] [place] [address] [address] [place] [address] F/U from 08/19/2024[facility] HospitalComment on above: F/U from 08/19/2024Start: 10-07-2024 End: 49-57-6904Buhhqlp encounter biljogkeq13/09/2025 1:45 PM EDT Office Visit [facility] [address] [place] [address] [address] [place], [place] [phone] Osmar Rodriguez MD [address] [place] [address] [address] [place] [address] F/u med managementLima City Hospital Primary CareComment on above:F/u med managementStart: 08-30-2024 Fall Risk ScreeningFall Risk ScreeningProUpper Valley Medical Center SystemStart: 08-30-2024 Pneumococcal 0-64 years Vaccine (2 of 2 - PPSV23)Pneumococcal 0-64 years Vaccine (2 of 2 - PPSV23)[facility]burgStart: 09-86-9752Eqaiyydrdxnw 0-64 years Vaccine (3 - PPSV23 if available, else PCV20)Pneumococcal 0-64 years Vaccine (3 - PPSV23 if available, else PCV20)[facility]ITALStart: 71-30-9373Rejrbiphjmbi 0-64 years Vaccine (3 - PPSV23 or PCV20)Pneumococcal 0-64 years Vaccine (3 - PPSV23 or PCV20)[facility]ITALStart: 86-29-9005Uqrnwsmthjic 0-64 years Vaccine (3 of 3 - PPSV23 or PCV20)Pneumococcal 0-64 years Vaccine (3 of 3 - PPSV23 or PCV20)[facility]ITALStart: 16-02-8070KRLGMFFURWZU VACCINE SERIES (3 - PPSV23 if available, else PCV20)PNEUMOCOCCAL VACCINE SERIES (3 - PPSV23 if available, else PCV20)[facility]tart: 08-24-2024 End: 09-30-5775Fyogu metabolic 2000 panel - Serum or PlasmaBasic Metabolic Panel Lab Routine Open wound of foot excluding toes Expected: 08/24/2024, Expires: 0 08/17/2025on [facility] on above:Expected: 08/24/2024, Expires: 08/17/2025Start: 08-24-2024 End: 34-81-7653CBK W Auto Differential panel - BloodCBC with Auto Differential Lab Routine Open wound of foot excluding toes Expected: 08/24/2024, Expires: 08/17/2025on [facility] on above:Expected: 08/24/2024, Expires: 08/17/2025Start: 08-19-2024 End: 36-70-7654Fymwblr encounter exibfsxly17/21/2025 12:45 PM EDT Office Visit [address] [place] [address] Gordo Colmenares MD [address] [place] [address] [address] [place] [address] hosp. stay, Claudications PVD, [facility] Comment on above:hosp. stay, Claudications PVD, PADStart: 08-13-2024 End: 77-67-7494Xtmovgg encounter vsrvboiia22/15/2025 9:30 AM EDT Office Visit [facility] [address] [place] [address] [address] [place] [address] Osmar Rodriguez MD [address] [place] [address] [address] [place] [address] [facility] CareStart: 08-07-2024 End: 22-77-4434Sacayiqw Fsrrggv0908/07/2024 10:30 AM EDT Clinical Support [facility] Medication Management [address] [place] [address] WcfQwptqn [facility] - Pharmacy Medication ManagementStart: 07-24-2024 End: 91-49-3471Qnoqifv encounter xrqakgzeo88/25/2025 8:40 AM EDT Office Visit [facility] [address] [place] [address] Marquita Beard, INSPECTOR PAPER PRODUCTS-TRUST ADMINISTRATOR [address] [place] [address] [facility] Wound Care ClinicStart: 04-27-2024 End: 71-17-4244Fzubplu encounter kgluawxpx63/27/2025 2:00 PM EST Office Visit [facility] [address] [place] [address] Rebeca Johnson MD [address] [place] [address] [facility] VascularStart: 42-76-9736Gefntcceqfji 50+ years Vaccine (3 of 3 - PCV20 or PCV21)Pneumococcal 50+ years Vaccine (3 of 3 - PCV20 or PCV21)[facility] CenterStart: 04-18-2024 End: 43-45-9271Ihmruyqvo to same day surgery qqsplt0304/18/2024 10:00 AM EST - 04/18/2024 11:38 AM EST Surgery [facility] - Special Procedures [address] [place] [address] Rebeca Johnson MD [address] [place] [address] LYSIS RECHECK EXTREMITY LOWERDayton VA Medical Centerca [facility] - Special ProceduresComment on above:LYSIS RECHECK EXTREMITY LOWERStart: 04-18-2024 End: 64-55-8352LMQIBIQYH EXTREMITY LOWERANGIOGRAM EXTREMITY LOWER LLE LIMB ISCHEMIA 04/18/2024 10:00 AM ESTSt. John of God Hospital Health SystemStart: 04-18-2024 Subsequent hospital visit by /18/2025 10:00 AM EST Hospital Encounter [facility] [address] [place] [address] Rebeca Johnson MD [address] [facility] [place], [place] [facility] Special ProceduresStart: 98-69-7787Dojkrxftzx MonitoringDepression MonitoringCUMBERLAND HOSPITALStart: 20-04-2729EafpmshtiSheltering Arms Hospitaltart: 64-97-4365Iuwmeytf to vascular surgeonSheltering Arms Hospitaltart: 96-76-2273Xkowwefsfkosw metabolic 2000 panel - Serum or PlasmaSheltering Arms Hospitaltart: 67-86-2358EaissrpeoSheltering Arms Hospitaltart: 21-71-9633LrlrwoiidSheltering Arms Hospitaltart: 06-12-9213Lbjmpjlw to general surgeonSt. Vincent Hospital CenterStart: 87-83-7718OvclqxvwyzywCbpunxrxnSheltering Arms Hospitaltart: 90-19-5632Kibxaxcj to cardiologistSt. Vincent Hospital CenterStart: 26-32-7175Rscqwxgh admissionSheltering Arms Hospitaltart: 01-17-2024 End: 92-60-8262Uvxntntzbtyeqtzzrdvtkkmgsf transoral diagnostic ESOPHAGOGASTRODUODENOSCOPY DIAGNOSTIC Upper GI bleed 01/17/2024 1:47 PM EDT [facility]COPYStart: 41-71-5248RGMZW-19 Vaccine ( season)COVID-19 Vaccine ( season)Bon [facility] OhioStart: 33-20-6556Mdqxnilxv vaccinationInfluenza VaccineProHolzer Hospitaltart: 11-22-2023 End: 33-39-8003Ndxhyfq encounter znjugnbrm96/23/2024 2:45 PM EDT Office Visit [facility] [address] [place] [address] [address] [place] [address] Osmar Rodriguez MD [address] [place], [place] [id number] 1 month FU/Mammogram OverdueLima City Hospital Primary CareComment on above:1 month FU/Mammogram Overdue Start: 11-20-2023 End: 64-09-4634Wvqedca encounter lrgotctsy56/21/2024 1:30 PM EDT Office Visit [facility] PUL Part [facility] [address] [place], [place] [address] Gwendolyn Garces MD [facility] [address] [id number] Chronic obstructive pulmonary disease, unspecified COPD type (HCC)[facility] PUL Part [facility] CenterComment on above:Chronic obstructive pulmonary disease, unspecified COPD type (HCC)Start: 93-70-1312Trckscxti vaccinationFlu vaccine (#1)BON [facility]: 57-22-0222Ubtkzyvaqc ScreeningDepression ScreeningNovant Health Huntersville Medical Centertart: 91-92-8684MYJ test (Diabetes, CKD 3-4, OR last GFR 15-59)GFR test (Diabetes, CKD 3-4, OR last GFR 15-59)BON [facility]: 92-86-0277TON test (Diabetes, CKD 3-4, OR last GFR 15-59)GFR test (Diabetes, CKD 3-4, OR last GFR 15-59)BON [facility]: 07-27-2023 Hemoglobin A1c ssffhjgceyjR7D test (Diabetic or Prediabetic)BON [facility]: 32-52-9530Jktyh panelLipidsBON [facility]: 81-88-0954Aoikt screening for proteinBON [facility]: 04-09-2023 Depression MonitoringDepression MonitoringBON [facility] Centerart: 39-41-1603Fdobszgks vaccinationFlu vaccine (Season Ended)BON [facility] Hamiltonment on above:Postponed from 10/30/2022 (Patient Refused)Start: 99-26-4748Qkzdnojv vaccine (1 of 2)Shingles vaccine (1 of 2)BON [facility] Hamiltonment on above:Postponed from 08/30/2009 (Patient Refused)Start: 34-90-3908EAE test (Diabetes, CKD 3-4, OR last GFR 15-59)GFR test (Diabetes, CKD 3-4, OR last GFR 15-59)BON [facility]: 51-73-2467TLAIN-19 Vaccine ( season)COVID-19 Vaccine ( season)BON [facility] Centerart: 09-06-2022 End: 50-68-2256Ffhgxsn encounter gdatdvtwa95/08/2023 Office Visit Primary Care Osmar Rodriguez MD [address] [place] [address] [facility] CareStart: 12-41-6530Zqvdn panelLipidsBON [facility]: 86-80-8359Egpwjoffzw A1c xqqajkbidqjN7O test (Diabetic or Prediabetic)[facility]art: 08-07-2022 End: 75-48-9053Qenqrol encounter zoyknchoo43/09/2023 Office Visit Primary Care Osmar Rodriguez MD [address] [place] [address] [facility] CareStart: 08-01-2022 End: 80-72-5234Tvhgajr encounter smoxekyqb40/03/2023 Office Visit Cardiology Nydia Barton PA-C [address] [place] [address] [facility] CARDIOLOG[facility] Part [facility] Hospitaltart: 07-24-2022 End: 35-60-6813Rrldjfm encounter joimztair01/25/2023 Office Visit Cardiology Nydia Barton PA-C [address] [id number] [facility] CARD[facility] Part of [facility] Hospitaltart: 71-35-3683Ifuqpyjrr monitoringPotassium monitoringKettering Health MiamisburgStart: 06-08-2022 End: 83-13-1460Cvjwkxkblnzx consultation with geokvmp8306/08/2022 Telemedicine General Surgery Corrine Chery, INSPECTOR PAPER [employer]-TRUST ADMINISTRATOR [address] [place], [place] General and Gastrointestinal Surgery [facility] Centertart: 31-44-5023Zhpjolnfuw measurementCreatinine monitoringKettering Health [facility] Start: 13-74-1577Wwskeqq stimulating hormone measurementTSH testingKettering Health [facility] Start: 23-33-0395Uionhuzzjx A1c myjibptrwrsG0Y test (Diabetic or Prediabetic) [facility]art: 55-16-1091Abhbv screening for proteinKettering Health MiamisburgStart: 55-97-1008Upnkcuuyib measurementCreatinine monitoringK[facility]tering Health MiamisburgStart: 31-83-9384Uqtkkcudz monitoringPotassium monitoringKettering Health MiamisburgStart: 04-06-2022 Depression MonitoringDepression MonitoringK[facility]tering Health MiamisburgStart: 08-37-2911Sjqjqnxw foot examinationDiabetic foot examKettering Health MiamisburgStart: 27-50-7054Ttgqittsut measurementCreatinine monitoringK[facility]tering Health MiamisburgStart: 12-79-9051Jyapgrllu monitoringPotassium monitoringKettering Health MiamisburgStart: 08-66-6302FYBPX-19 Vaccine (#1) COVID-19 Vaccine (#1)BON Playerize [facility]ITALComment on above:Postponed from 03/01/1960 (Patient Refused)Start: 10-36-4768Pqoztyzj vaccine (1 of 2)Shingles vaccine (1 of 2)BON SECApoCell [facility]ITALComment on above:Postponed from 08/30/2009 (Patient Does Not Have Time)Start: 77-10-1044Uqvebquddo measurement Creatinine monitoringKettering Health [place]burgStart: 32-80-7874Mfoiglsvp monitoringPotassium monitoringMercy HealthStart: 01-23-2022 End: 45-04-4460Kitxvvl encounter nnskvygme19/25/2022 Office Visit Primary Care Osmar Rodriguez MD [address] [place] [address] [facility] CareStart: 76-37-9019Qrwdlidxmt measurementCreatinine monitoringMercy Health Work Phone: start: 70-24-6430Faeftorbm monitoringPotassium monitoringMercy Health Work Phone: start: 08-06-4871Hhgdxtmuun measurementCreatinine monitoringMercy Health Work Phone: start: 66-03-2712Uxcaachlo monitoringPotassium monitoringMercy Health Work Phone: start: 03-48-1027Hdbxzxeqfq measurementCreatinine monitoringMercy Health Work Phone: start: 47-14-5644Npknnuixr monitoringPotassium monitoringMercy Health Work Phone: start: 25-20-4604Iqhsdxnzx vaccinationCleveland Clinic Akron Generaltart: 71-44-5870Gbsqhefte vaccinationFlu vaccine (#1)[facility]ENTERStart: 10-24-2021 End: 50-57-8271Fiwyhti encounter tlggmbign09/26/2022 Office Visit Cardiology Josef Brooks MD [address] [facility] [place] [id number] [facility] CARDIOLOGY Part [facility]art: 05-16-2021 End: 56-65-1606Xtofuqq encounter kimgxudjm18/15/2022 Office Visit Primary Care Osmar Rodriguez MD [address] [place] [address] [facility] Primary CareStart: 05-10-2021 End: 56-22-2544Bmrfgbd encounter ztnaqouom82/09/2022 Appointment RadiologyOhio [facility] MammographyStart: 05-02-2021 End: 74-69-2058Mufqrro encounter jwpzbetvy76/01/2022 Office Visit General Surgery Carlo Bridges MD [address] [facility] [address] [place] [address] [facility] GENERAL SURGERY Part [facility] Hospitaltart: 04-24-2021 End: 42-85-7478Iudjorr encounter zzsfpfqwo80/24/2022 Office Visit Primary Care Osmar Rodriguez MD [address] [place] [address] [facility] Primary CareStart: 83-43-3411Zsesrqaihx A1c oqygmvbzyqtV1D test (Diabetic or Prediabetic)[facility]burgStart: 34-97-3026Sqlzludwlp measurementCreatinine monitoringMercy Health- [place], [place]Start: 36-47-3659Swzrthirs monitoringPotassium monitoringMercy Health- [place], [place]Start: 40-29-6067Ptvzxqsmhm measurementCreatinine monitoringMercy Health- [place], [place]Start: 20-98-0645Vkrvexdoj monitoringPotassium monitoringMercy Health- [place], [place] Start: 29-23-6485Nqbwqggzbe measurementCreatinine monitoringMercy Health- [place], [place] Start: 76-46-9211Infns panelMercy HealthStart: 90-57-9344Opqaqidbb monitoring Potassium monitoringMercy Health- [place], [place]Start: 34-09-0100Wpiizpowai measurement Creatinine monitoringMercy Health- [place], [place]Start: 01-04-2539Cuczq panelLipid screenMer Health- [place], [place]Start: 19-44-9689Cbizxolbo monitoringPotassium monitoringMercy Health- [place], [place]Start: 31-45-5597Prayyke stimulating hormone measurementTSH testingMedina Hospitalcy HealthStart: 38-05-8958KDT QnTSH testingDiley Ridge Medical Center Health- [place], [place]Start: 61-93-1665Hyzmuxtli vaccinationFlu vaccine (#1)[facility] Start: 76-80-8747Sbqkwmjggt measurementCreatinine monitoringMercy Health- [place], [place] Start: 15-28-6653Gpqpoqcfc monitoringPotassium monitoringM[facility] [place], [place] Start: 95-22-3400Tiyydmusnb measurementCreatinine monitoringMorrow County Hospital [place], [place] Start: 75-94-6607Zxiwdvyvl monitoringPotassium monitoringMorrow County Hospital [place], [place] Start: 57-67-7223Rwjfyqvaxm measurementCreatinine monitoringMorrow County Hospital [place], [place] Start: 79-20-3288Ivpkjxgmm monitoringPotassium monitoringPremier Health, [place] Start: 54-35-1797Drktdgjpou measurementCreatinine monitoringMorrow County Hospital [place], [place] Start: 00-28-8176Vgaokowde monitoringPotassium monitoringPremier Health, [place] Start: 00-00-8652PkJ9e (Bld) [Mass fraction]A1C test (Diabetic or Prediabetic) [facility], KYStart: 93-96-4939Fvgqkodmfe A1c jcxlhygalkdZ7N test (Diabetic or Prediabetic)[facility]burgStart: 45-58-6519Heyalvxhdz measurement Creatinine [facility], KYStart: 03-84-6219Bttkxznjb monitoring Potassium [facility], KYStart: 82-32-9408HVE QnTSH testingPremier Health, KYStart: 99-36-6340Bgnndiivn for malignant neoplasm of lungLow dose CT lung screeningKettering Health MiamisburgStart: 73-96-0417Zjkqvbdswk monitoringCreatinine monitoringK[facility]tering Health [facility] Work Phone: start: 85-11-7961Yvypuyeeu monitoringPotassium monitoringK[facility]tering Health [facility] Work Phone: start: 84-96-0934Noc dose CT lung screeningLow dose CT lung screeningPremier Health, KYStart: 30-30-9833Wcijnrlpj for malignant neoplasm of lungLung Cancer Screening &/or CounselingCUMBERLAND HOSPITAL Start: 03-15-2020 End: 82-94-8424Npjchl [facility] and HypertensionStart: 03-90-9466OkvfauehtgoYuxtbxjwh - Screening ([address])[facility] Work Phone: Start: 02-24-2020 End: 94-99-6077Zqunbwyrwsg35/25/2020 Appointment IP UnitMTHZ CATH LABStart: 60-64-9471Eottc [address] [place] [address] Work Phone: Start: 02-01-2020 End: 99-61-5051Qtbppp Visit02/01/2020 Office Visit Cardiology Josef Brooks MD [address] [facility] [place] [address] [facility] CARDIOLOGY Part of [facility] Hospitaltart: 50-71-0458DnxnsfsbrdProMedica Flower Hospital Work Phone: Comment on above:Note: Please make a referral to: Start: 39-31-7410Hkjcwefcj vaccinationFlu vaccine (#1)[place], [place]Start: 11-23-2019 End: 69-44-2646Zzljot Visit11/23/2019 Office Visit Cardiology Josef Brooks MD [address] [place] [address] [place] [address] [facility] CARDIOLOGY Part of [facility] Hospitaltart: 34-73-6682Xpvjeytfizwg consultation with [facility] Work Phone: Comment on above:Note: Please make a referral to: Start: 10-26-2019 End: 30-66-4731Plxvtr Visit10/26/2019 Office Visit Pulmonology Favian Alvarez MD [address] [address] [facility] OUTREACH PULM Part of [facility] [place] HospitalStart: 10-12-2019 End: 30-66-7117Eaaatq Visit10/12/2019 Office Visit Cardiology Josef Brooks MD [address] [facility] [place] [address] [facility] CARDIOLOGY Part of [facility] [place] HospitalStart: 10-01-2019 End: 65-62-3417Zhvgrohoces35/02/2020 Appointment IP UnitMTHZ CATH LABStart: 09-29-2019 End: 41-48-9372Ofgrza Visit09/29/2019 Office Visit Cardiology Josef Brooks MD [address] [facility] [place] [address] [facility] CARDIOLOGY Part of [facility] [place] HospitalStart: 09-28-2019 End: 60-86-9787Gmfgcuaywxq68/29/2020 Appointment LabMTHZ Covid ScreeningStart: 13-21-5794Wdfsiiz Established PatientNeosho Memorial Regional Medical Center Work Phone: Start: 09-24-2019 End: 87-30-8145Msxpethvsyy88/25/2020 Appointment IP UnitMTHZ CATH LABStart: 37-62-7149Okoviaif Medicine & RehabHealth [facility] Work Phone: Comment on above:Note: Please make a referral to: [facility] dr [facility]oStart: 09-21-2019 End: 62-16-4847Lwknns Visit09/21/2019 Office Visit Pulmonology Favian Alvarez MD [address] [address] [phone] [facility] OUTREACH PULM Part [facility] Hospitaltart: 09-18-2019 End: 99-37-2038Xvlwit Visit09/18/2019 Office Visit Cardiology Josef Brooks MD [address] [facility] [place] [address] [facility] CARDIOLOGY Part of [place] HospitalStart: 09-17-2019 End: 58-68-2087Yzacdypuhxx70/18/2020 Appointment Stress LabMTHZ Stress LabStart: 27-97-9265HsjwmntylbidVgwhlzCoffeyville Regional Medical Center Work Phone: Start: 09-10-2019 End: 19-03-1486Xrzwxh VisitMARTIN [facility] OUTREACH PULM Part of [place] HospitalStart: 09-09-2019 End: 32-13-3726Lqlnxxchocd81/10/2020 Appointment Stress LabMTHZ Stress LabStart: 44-95-0862Mvrainwzoiy Syncytial Virus (RSV) or age 60 yrs+ (1 - 1-dose 60+ series)Respiratory Syncytial Virus (RSV) or age 60 yrs+ (1 - 1-dose 60+ series)[facility]ITALStart: 37-16-2005Sjjrimsxyos Syncytial Virus (RSV) or age 60 yrs+ (1 - Risk 60-74 years 1-dose series)Respiratory Syncytial Virus (RSV) or age 60 yrs+ (1 - Risk 60-74 years 1-dose series)[facility] OhioStart: 71-77-6524Fvorocjry for malignant neoplasm of colonFIT/FOBT: Average [facility] CenterStart: 08-03-2019 End: 74-39-1949Nchzpg Visit08/03/2019 Office Visit Cardiology Josef Brooks MD [address] [facility] [place] [address] [facility] CARDIOLOGYStart: 07-06-2019 End: 94-23-8074Xazvzx Visit07/06/2019 Office Visit Pulmonology Martin Alvarez MD [address] [id number] [facility] OUTREACH PULMStart: 06-23-2019 End: 16-15-4892NgrzhooiofrQigyt Health Tiff[place] CT ScanStart: 06-09-2019 End: 96-30-7049Qncpog Visit06/09/2019 Office Visit Cardiology Josef Brooks MD [address] [place] [address] [facility] CARDIOLOGYStart: 34-70-7533VL Chest PA & LAT ([address])[facility] Work Phone: start: 05-13-2019 End: 26-97-7898Ybifzvf encounter vcgqimqnu69/12/2020 Appointment [facility] MammographyStart: 04-28-2019 End: 80-58-5970Kccppsb encounter tbukmmgdp67/28/2020 Office Visit Cardiology Josef Brooks MD [address] [place] [address] [facility] CARDIOLOGYStart: 04-19-2019 MammographyMammogram - Screening ([address])[facility] Work Phone: start: 69-48-7460Fqgge 1996 panelLipid ProfileWestwood Lodge Hospital Work Phone: Start: 04-52-1110Znfti Drugs of Abuse Screen (DANIEL) [facility] Work Phone: Start: 35-68-0271Zcmjqiz Established [facility] Work Phone: Start: 03-12-2019 End: 17-57-4153Ixnexbhdlvr41/12/2019 Appointment Vascular LabOhio State Health System Vascular LabStart: 32-48-7436Mvmju panelLipid screenPremier Health, [place]Start: 32-04-0980Xvbhu screenLipid screenPremier Health, [place]Start: 95-75-3333CZ Shoulder 2 Views (10171)[facility] Work Phone: start: 01-15-2019 End: 96-52-5641Dgmba metabolic 2000 panelBasic Metabolic Panel Lab Routine Hyponatremia Expected: 01/15/2019, Expires: 01/14/2020[facility], [place] Comment on above:Expected: 01/15/2019, Expires: 01/14/2020Start: 01-14-2019 [facility] Work Phone: comment on above:Note: Please make a referral to: Start: 75-88-2826Gthyant StockWestwood Lodge Hospital Work Phone: Start: 13-17-8145Rpmtyhcw TherapyWestwood Lodge Hospital Work Phone: comatum on above:Note: Please make a referral to: Start: 62-98-6585Bekrsozme to same day surgery centerGeneral SurgeryWestwood Lodge Hospital Work Phone: comment on above:Note: Please make a referral to: Dr Avila: [phone] Established [facility] Work Phone: Start: 10-30-2018 End: 07-64-3607MjngtnbaqonXjzjjkWestwood Lodge Hospital Work Phone: comment on above:Note: Please make a referral to: Start: 09-30-2018 End: 88-48-7211Amimhdzslscku metabolic 2000 panelComprehensive Metabolic Panel (CP)[facility] Work Phone: Start: 09-30-2018 End: 72-46-7976Nqnc T4 [Mass/Vol]T4 Free (FT4)[facility] Work Phone: start: 09-30-2018 End: 02-03-6627Usewq panelLipid Panel (LIPR)[facility] Work Phone: start: 09-30-2018 End: 51-73-3300LuuesozzapkPasxpoWestwood Lodge Hospital Work Phone: Start: 09-30-2018 End: 90-28-8937ANY QnTReunion Rehabilitation Hospital [facility] Work Phone: start: 99-42-9673TCA W Auto Differential panel - Blood CBC with diff (CDP)[facility] HospitalStart: 22-31-0582Fpwwkhwkdjjrb metabolic 2000 panelComprehensive Metabolic Panel (CP)[facility] Work Phone: start: 31-82-3156Hlpy T4 [Mass/Vol]T4 Free (FT4)[facility] Work Phone: Start: 19-75-9462Qzpbe panelLipid Panel (LIPR)[facility] Work Phone: Start: 73-80-8020UszynqjcuwkNgddrdWestwood Lodge Hospital Work Phone: start: 56-00-2612YSY QnTReunion Rehabilitation Hospital [facility] Work Phone: start: 96-20-7772Tzuvkmcyejah 0-64 years Vaccine (1 of 1 - PPSV23)Pneumococcal 0-64 years Vaccine (1 of 1 - PPSV23)[facility]- [place], [place]Start: 53-96-8222ICCR visit, estab ptEstablished PatientNeosho Memorial Regional Medical Center Work Phone: Start: 93-89-4464ZYZG visit, estab ptEstablished PatientNeosho Memorial Regional Medical Center Work Phone: Start: 28-81-3902Srivkocdrw radiography of chest, combined PA and lateralChest xray, PA & lateralHealth [facility] start: 72-73-0224Xfsvwyt bacterial quanttative colony count urineUA + reflex cultureHealth [facility] start: 40-17-9413Ypsizcbags qual/semiquant except immunoassaysUA + reflex cultureHealth [facility] start: 72-66-6280Bzfxazwq foot examinationDiabetic foot examMer HealthStart: 16-67-9616Dia bact xcpt urine blood/stool aerobic isol Wound culture and sensitivityHealth [facility] start: 96-98-9263Qmpusrmaxww antibodies anaANA screen [facility] start: 59-81-9175Hsjbo of free thyroxineTSH + free t4 [facility] start: 73-30-8047Vqzeh of thyroid stimulating hormone tshTSH + free w2Crpfyb [facility] start: 75-78-7037Csqln count complete auto&auto difrntl wbcCBC W/DiffHealth [facility] Start: 08-06-2017C reactive protein (CRP)CRPHealth [facility] Start: 09-62-9849Gwxwmmnyghjuh metabolic panelCMPHealUC Health start: 53-35-2615Uwfa energy X-ray photon absorptiometryDEXA scan for body composition studyHealth [facility] Start: 03-05-9006Qyvoobylrct sedimentation rateESR [facility] start: 19-18-6939Gdtyyqqmyoh analyte qual/semiqual multiple stepRheumatoid factor antibody panel (IgG, IgM, IgA)[facility] start: 26-81-8408Euwfl panelLipid Panel (Chol, HDL, LDL, Trig., VLDL)[facility] start: 35-35-5448Jrrpnpskga factor quantitative Rheumatoid factor antibody panel (IgG, IgM, IgA)[facility] start: 06-18-7092YfmdzaWestwood Lodge Hospital start: 14-59-7865Vvgdkmzbs for malignant neoplasm of breastBreast cancer screenKettering Health MiamisburgStart: 18-59-4288Eqcfqlsuw mammography, bilateral (2-view study of each breast),[facility] start: 06-02-5443Dtetrrifl for osteoporosisDEXA (modify frequency per FRAX score)[facility]: 15-61-9809N3Y test (Diabetic or Prediabetic)A1C test (Diabetic or Prediabetic)[place] Start: 86-40-2678UiI7s (Bld) [Mass fraction]A1C test (Diabetic or Prediabetic) [place], [place]Start: 84-01-3153QOU testingTSH testingC[place], [place] Start: 79-76-5531Ubklybhoqhzedb of varicella zoster vaccineZoster (Shingles) Vaccine (1 of 2)[employer] SystemStart: 17-14-0115Rnuxwu cancer screen Breast cancer screenC[place], KYStart: 73-57-7445Wjfykzazo for malignant neoplasm of breastBreast cancer screenBON SECAdams County Regional Medical Centerart: 08-30-2009 Screening for malignant neoplasm of lungLow dose CT lung screeningBON [facility] Medical Centerart: 08-75-0720Swxbflwx Vaccine (1 of 2)Shingles Vaccine (1 of 2) [facility]burgStart: 97-39-3007Kwazla vaccine hzv live for subcutaneous useZOSTER (SHINGLES) VACCINE (1 of 2)[facility] CenterStart: 73-55-5602Hdjkyqduhti COLORECTAL CANCER SCREENING DISCUSSIONOSFulton County Health Centertart: 08-30-2004 Screening for malignant neoplasm of colonKettering Health MiamisburgStart: 65-21-1290Yudaxou lipid profileLIPID SCREENINGOSFulton County Health Centertart: 32-48-1467Yhesx panelLIPID SCREENINGOSCherrington Hospital CenterStart: 77-94-7140Ywfsdadrl for malignant neoplasm of breastOSCherrington Hospital CenterStart: 66-27-9130Qedyrevjo mammographyMAMMOGRAM SCREENING DISCUSSIONOSCherrington Hospital CenterStart: 64-42-8297Clhmvqvoo for malignant neoplasm of cervixBON [facility] Start: 42-48-9481Dyhsujzu cancer screenCervical cancer [facility]: 44-39-2452Dnevkbzce for malignant neoplasm of cervixOSCherrington Hospital CenterStart: 04-64-5819Hznzigftt B Vaccine (1 of 3 - Risk 3-dose series) Hepatitis B Vaccine (1 of 3 - Risk 3-dose series)[facility]: 91-69-0023Rjuez diphtheria, tetanus and acellular pertussis (DTaP) vaccination TDAP (ADULT)[facility] Generaltart: 58-21-2179Lzynr BMI Follow Up Plan Adult BMI Follow Up PlanNovant Health Huntersville Medical Centertart: 87-78-4447Gyqnhjdh foot examinationDiabetic Foot ExamProHolzer Hospitaltart: 95-85-5586Zhoiziqn microalbuminuria testDiabetic microalbuminuria testKettering Health MiamisburgStart: 08-30-1977 Diabetic retinal examDiabetic retinal examKettering Health MiamisburgStart: 04-93-5849Cmnjsvmg screeningDiabetic retinal examBON LUTHERAN HOSPITALStart: 71-68-1807Rdrhkenlz C screeningHepatitis C screenCUMBERLAND HOSPITALStart: 64-10-6314Hznzghb vaccinationTETANUSOSFulton County Health Centertart: 08-28-8472Fxpzo screening for proteinDiabetic microalbuminuria testKettering Health MiamisburgStart: 15-25-8552PDT screenHIV screenGerman Hospitalart: 42-21-0716OEP screeningWexner Medical Centerart: 47-11-2603AZHPR-19 Vaccine (1)COVID-19 Vaccine (1)[facility] MiamisburgStrosburg: 08-30-1970 [object Object]Diabetic foot examPremier Health, KYStart: 09-06-3184Utpryone foot examinationDiabetic foot examPremier Health, KYStart: 36-41-3541Kwnvicgv retinal examDiabetic retinal examKettering Health MiamisburgStart: 53-76-4747BKBSHBCPEDOA VACCINE SERIES (1 - PCV)PNEUMOCOCCAL VACCINE SERIES (1 - PCV)[facility] Generaltart: 45-68-9640NUILY-19 Vaccine (1)COVID-19 Vaccine (1)[facility] Start: 03-09-9184TKXPZ-19 VACCINE (#1)COVID-19 VACCINE (#1)[facility] Generaltart: 03-46-8020Owyatscr screeningDiabetic Ophthalmology ExamProUpper Valley Medical Center SystemStart: 81-02-7225Glrbsldbb C antibody, confirmatory testHEPATITIS C VIRUS SCREENINGCleveland Clinic [facility] Generaltart: 92-46-2075Uitgucwmx C screen Hepatitis C screenPremier Health, [facility] Centerart: 85-21-8864Meypqzrme C screening [facility]: 64-57-9511Vybpkvs stimulating hormone measurementTSPremier Health [facility] Southtart: 65-12-8661Kkcvdlh CounselingTobacco Counseling [facility] HospitalAcapellaAcapella Respiratory Care Routine Every 1hr while awake until discontinued starting 03/17/2021[facility] [employer] [facility] Phone: comment on above:Every 1hr while awake until discontinued starting 1AcapellaAcapella Respiratory Care Routine TID until discontinued starting 04/22/2019[facility] [employer] Phone: comment on above:TID until discontinued starting 04/22/2019AcapellaAcapella Respiratory Care Routine TID until discontinued starting 08/06/2024on Secours City Hospitalment on above:TID until discontinued starting 08/06/2024asic metabolic 2000 panel - Serum or Plasma Basic Metabolic Panel Lab Routine Daily until discontinued starting 04/24/2019, 3 [employer] Work Phone: comment on above:Daily until discontinued starting 04/24/2019, 3 completedBasic Metabolic Panel w/ Reflex to MGBasic Metabolic Panel w/ Reflex to MG Lab Routine Every Other Day until discontinued starting 07/25/2019, 1 completedEasy [employer], CartilixComment on above:Every Other Day until discontinued starting 07/25/2019, 1 completedBasic Metabolic Panel w/ Reflex to MGBasic Metabolic Panel w/ Reflex to MG Lab Routine Daily until discontinued starting 03/18/2021, 2 [email or web address] Work Phone: comment on above:Daily until discontinued starting 03/18/2021, 2 completed End: 25-96-7074Qmzpq Metabolic Panel w/ Reflex to MGBasic Metabolic Panel w/ Reflex to MG Lab Routine Daily for 9 Days starting 08/07/2024 until 08/15/2024, 4 completedBon Secours Toledo HospitalVsnapComment on above:Daily for 9 Days starting 08/07/2024 until 08/15/2024, 4 completedBasophils [#/volume] in Blood by Automated [facility] Medical CenterBasophils/100 leukocytes in Blood by Automated [facility] Medical CenterBedside Glucose *Place/Obtain serum glucose if >500 per glucometer.Bedside Glucose *Place/Obtain serum glucose if >500 per glucometer. Point of Care Testing Routine 4X Daily (AC and at bedtime) until discontinued starting 12/30/2024, 6 completedProConveneer Health SystemComment on above:4X Daily (AC and at bedtime) until discontinued starting 12/30/2024, 6 completedBIPAYouEye Work Phone: comment on above:Every 4hr until discontinued starting 07/22/2019Every 4hr until discontinued starting 04/22/2019 End: 38-52-9681Qvulurdvfphmbai and angiography procedure details panelDiagnostic Cardiac Postie Procedure Cardiac Cath Routine One Time for 1 Occurrences starting 03/17/2020 until 03/17/2020Medina HospitalXplornet, CartilixComment on above:One Time for 1 Occurrences starting 03/17/2020 until 03/17/2020CBC auto differential [email or web address] Work Phone: comment on above:Every Other Day until discontinued starting 07/24/2019, 1 completedDaily until discontinued starting 04/24/2019, 3 completedCBC W Auto Differential panel - BloodCBC Auto Differential Lab STAT Daily until discontinued starting 03/18/2021, 2 RecruitLoopMedina HospitalJ.G. ink Work Phone: comment on above:Daily until discontinued starting 03/18/2021, 2 completed End: 95-27-8771CXG W Auto Differential panel - BloodCBC auto differential Lab Routine Daily for 9 Days starting 08/06/2024 until 08/14/2024, 5 completedBon [facility] [email or web address] on above:Daily for 9 Days starting 08/06/2024 until 08/14/2024, 5 completedCBC W Auto Differential panel - BloodCBC auto differential Lab Routine Lab max of 3 days, Daily, for lab use only until discontinued starting 12/31/2024, 2 [facility] HospitalImpero Software Limited [facility] Specialty HospitalComment on above:Lab max of 3 days, Daily, for lab use only until discontinued starting 12/31/2024, 2 completedComprehensive metabolic 2000 panel - Serum or Plasma Comprehensive metabolic panel Lab Routine Lab max of 3 days, Daily, for lab use only until discontinued starting 12/31/2024, 2 [facility]wn HospitalImpero Software Limited System Comment on above:Lab max of 3 days, Daily, for lab use only until discontinued starting 12/31/2024, 2 completedCOVID-19[facility] [employer]- [place], [place] End: 43-72-6278SCTEY-19, PCRCOVID-19, PCR Lab Routine One Time for 1 Occurrences starting 03/13/2020 until 03/13/2020[facility] [place], [place]Comment on above:One Time for 1 Occurrences starting 03/13/2020 until 03/13/2020CTA HEAD NECK W CONTRASTCTA HEAD NECK W CONTRAST Imaging STAT 04/12/2019 1:24 PM [employer] Work Phone: End: 02-07-3741Hwchrpb, Blood 1Culture, Blood 1 Microbiology STAT One Time for 1 Occurrences starting 10/06/2019 until 10/06/2019[facility] [place], [place]Comment on above:One Time for 1 Occurrences starting 10/06/2019 until 10/06/2019Culture, Blood 1Culture, Blood 1 Microbiology STAT 10/06/2019 10:00 AM EDW[facility], KYCulture, Blood 1Culture, Blood 1 Microbiology STAT 03/17/2021 9:00 PM [facility] Med[facility] High PointVsnap Work Phone: culture, Blood 1Culture, Blood 1 Microbiology STAT 08/06/2024 3:15 PM [facility]Children[facility] End: 14-03-0217Eakypux, Blood 2Culture, Blood 2 Microbiology STAT One Time for 1 Occurrences starting 10/06/2019 until 10/06/2019Prem[facility] HealthElaina on above:One Time for 1 Occurrences starting 10/06/2019 until 10/06/2019Culture, Blood 2Culture, Blood 2 Microbiology STAT 10/06/2019 12:40 PM EDW[facility]-Pat[facility] Center, KYCulture, Blood 2Culture, Blood 2 Microbiology STAT 08/06/2024 4:50 PM EDT [facility] [employer] End: 31-62-4549Hnygoqr, RespiratoryCulture, Respiratory Microbiology Routine One Time for 1 Occurrences starting 07/18/2019 until 07/18/2019Premier HealthCARLOS Comment on above:One Time for 1 Occurrences starting 07/18/2019 until 07/18/2019 End: 98-18-3004Emumyqw, UrineCulture, Urine Microbiology Routine Once for 1 Occurrences starting 07/17/2019 until 07/17/2019Premier HealthElaina on above:Once for 1 Occurrences starting 07/17/2019 until 07/17/2019Culture, Urine [facility], [place] End: 00-14-5921Vpmobtg, UrineCulture, Urine Microbiology Routine Once for 1 Occurrences starting 11/16/2019 until 11/16/2019Premier HealthElaina on above:Once for 1 Occurrences starting 11/16/2019 until 11/16/2019 End: 08-66-3477Ljbwqzg, UrineCulture, Urine Microbiology Routine Once for 1 Occurrences starting 02/12/2020 until 02/12/2020[facility] on above:Once for 1 Occurrences starting 02/12/2020 until 02/12/2020Culture, Wound (with Gram Stain)Culture, Wound (with Gram Stain) Microbiology Routine 09/03/2024 11:35 AM EDTBon [employer] Work Phone: End: 33-87-1117Rhff Screen, [employer]PlayJam Work Phone: comment on above:1 Occurrences starting 08/13/2022 until 08/13/2022EKG 12 LeadSmartStudy[employer][email or web address]- [place], KYEKG 12 LeadEKG 12 Lead ECG STAT 02/09/2021 11:32 AM [employer] Work Phone: eosinophils/100 leukocytes in Blood by Automated count [facility] SystemErythrocyte distribution width [Ratio] by Automated [facility] CenterErythrocytes [#/volume] in Blood [facility] End: 37-22-5700TeuzsreiuywxvsbaebmlfjbwbiBAQ GI Routine Gastrointestinal hemorrhage, unspecified gastrointestinal hemorrhage type Gastric ulcer without hemorrhage or perforation, unspecified chronicity 1 Occurrences starting 01/14/2024 until 01/13/2025[facility] Work Phone: Comment on above:1 Occurrences starting 01/14/2024 until 01/13/2025 End: 97-25-4160NcB4z (Bld) [Mass fraction]Hemoglobin A1C Lab Routine Once for 1 Occurrences starting 07/24/2019 until 07/24/2019Mer[place]plornet, [place]Comment [place]:Once for 1 Occurrences starting 07/24/2019 until 07/24/2019HbA1c (Bld) [Mass fraction]Hemoglobin A1C Lab Routine 07/24/2019 4:42 AM EDTMYouEye- [place], [place]Heated/ Humidified High Flow Nasal CannulaHeated/ Humidified High Flow Nasal Cannula Respiratory Care Routine Every 4hr until discontinued starting 07/17/2019, 1 completedMerXplornet, [place]Comment on above:Every 4hr until discontinued starting 07/17/2019, 1 completedHematocrit [Volume Fraction] of [facility] CenterHemoglobin [Mass/volume] in [facility] End: 61-16-2674Xdfwervvra A1c/Hemoglobin.total in BloodBON W[employer] Work Phone: comment on above:1 Occurrences starting 07/26/2022 until 07/26/2022HHN TreatmentHHN Treatment Respiratory Care Routine Daily until discontinued starting 07/18/2019[facility], [place]Comment on above:Daily until discontinued starting 07/18/2019Initiate Oxygen Therapy [facility] [employer] Work Phone: comment on above:Daily until discontinued starting 07/18/2019Daily until discontinued starting 04/21/2019 End: 61-64-0304Lvpiggti RT ProtocolInitiate RT Protocol Respiratory Care Routine Continuous until discontinued starting 07/22/2019[facility], [place]Comment on above:Continuous until discontinued starting 07/22/2019 End: 07-97-3817Uaffyvmgzlgt pulse oximetryPulse Oximetry Spot Check Respiratory Care Routine One Time for 1 Occurrences starting 03/17/2020 until 03/17/2020 [facility], [place]Comment on above:One Time for 1 Occurrences starting 03/17/2020 until 03/17/2020Leukocytes [#/volume] corrected for nucleated erythrocytes in Blood by Automated [facility] Leukocytes [#/volume] in BloodMemorial Health System End: 91-13-5166Bzgtz panel - fastingLipid panel - fasting Lab Routine Tomorrow AM for 1 Occurrences starting 03/18/2020 until 03/18/2020[facility] [place] Comment on above:Tomorrow AM for 1 Occurrences starting 03/18/2020 until 03/18/2020Lipid panel - fastingLipid panel - fasting Lab Routine 03/18/2020 5:20 AM [facility], CARLOSLymphocytes [#/volume] in Blood by Automated [facility] HospitalLymphocytes/100 leukocytes in Blood by Automated [facility] Medical CenterMagnesium [Mass/volume] in Serum or PlasmaMagnesium Lab Routine Lab max of 3 days, Daily, for lab use only until discontinued starting 12/31/2024, 2 completedSt. [facility] of God Hospital Health SystemComment on above:Lab max of 3 days, Daily, for lab use only until discontinued starting 12/31/2024, 2 completedMCH [Entitic mass] by Automated [facility] Medical CenterMCHC [Mass/volume] by Automated [facility] Medical CenterMCV [Entitic volume] by Automated [facility] End: 50-47-2631Kwyykmdamlkp / Creatinine Urine RatioMicroalbumin / Creatinine Urine Ratio Lab Routine Hyperglycemia 1 Occurrences starting 07/26/2022 until 3BON [employer] Work Phone: comment on above:1 Occurrences starting 07/26/2022 until 07/26/2022Monocytes [#/volume] in Blood by Automated [facility] Medical CenterMonocytes/100 leukocytes in Blood by Automated [facility] End: 73-90-9157IXHV DNA Probe, NasalMRSA DNA Probe, Nasal Microbiology Routine Daily for 2 Occurrences starting 04/25/2019 until 04/26/2019, 1 [employer] Work Phone: comment on above:Daily for 2 Occurrences starting 04/25/2019 until 04/26/2019, 1 completedNasal Cannula OxygenSmartStudy.com- [place], [place] Comment on above:Daily until discontinued starting 06/15/2019, 2 completedDaily until discontinued starting 03/13/2020Daily until discontinued starting 03/18/2020Nasal Cannula OxygenNasal Cannula Oxygen Respiratory Care STAT Daily until discontinued starting 03/17/2021[employer] Work Phone: Comment on above:Daily until discontinued starting 03/17/2021Nasal Cannula OxygenNasal Cannula Oxygen Respiratory Care Routine Daily until discontinued starting 5Bon M[employer].I. LtdComment on above:Daily until discontinued starting 08/13/2024Neutrophils [#/volume] in Blood by Automated [facility] Medical CenterNeutrophils/100 leukocytes in Blood by Automated [facility] Medical CenterNucleated erythrocytes [Presence] in Blood by Automated [facility] Medical CenterOxygen Therapy - Maintain SpO2: 90% or greaterOxygen Therapy - Maintain SpO2: 90% or greater Respiratory Care STAT As Needed until discontinued starting 12/30/2024[facility] Work Phone: Comment on above:As Needed until discontinued starting 12/30/2024Oxygen Therapy - Maintain SpO2: 90%; *LEADERSHIP PROGRAM INTERN Guidelines for O2: Yes; Document: \[email or web address]\epic\EPIC_Reference\Orders\Respiratory Care Guidelines\CPG Oxygen 2022.pdfOxygen Therapy - Maintain SpO2: 90%; *LEADERSHIP PROGRAM INTERN Guidelines for O2: Yes; Document: \[email or web address]\epi c\EPIC_Reference\Orders\Respiratory Care Guidelines\CPG Oxygen 2022.pdf Respiratory Care Routine AsNeeded until discontinued starting 12/30/2024 [facility] Work Phone: Comment on above:As Needed until discontinued starting 12/30/2024Oxygen therapy [Minimum Data Set][employer]- [place], [facility] on above:Daily until discontinued starting 03/17/2020Daily until discontinued starting 03/18/2020Oxygen therapy [Minimum Data Set]Initiate Oxygen Therapy Protocol Respiratory Care Routine Daily until discontinued starting 08/06/2024 Bon [facility] LtdMer[facility] on above:Daily until discontinued starting 08/06/2024Oxygen therapy [Minimum Data Set]Initiate Oxygen Therapy Protocol Respiratory Care Routine Daily until discontinued starting 08/12/2024on M[facility].T.I. LtdMercy Hospital [facility]oplin on above:Daily until discontinued starting 08/12/2024 End: 70-18-1066Clpy Review, SmearBon MIND C.T.I. LtdMercy Hospital Joplin on above:One Time for 1 Occurrences starting 08/15/2024 until 08/15/2024Patient EducationKnow your [facility] Work Phone: Patient referralSt. Vincent Hospital Ctr Work Phone: Platelet mean volume [Entitic volume] in Blood by Automated countMemorial Health SystemPlatelets [#/volume] in Blood St. [facility] Hospital CenterPOCT glucoseDiley Ridge Medical Center Health Work Phone: comment on above:4X Daily (AC & HS) until discontinued starting 03/18/2020As Needed until discontinued starting 03/18/2020As Needed until discontinued starting 07/18/20194X Daily (AC & HS) until discontinued starting 07/22/20194X Daily (AC & HS) until discontinued starting 04/24/2019As Needed until discontinued starting 04/24/2019Positive Expiratory Pressure TherapyPositive Expiratory Pressure Therapy Respiratory Care Routine TID until discontinued starting 5Bon [employer] on above:TID until discontinued starting 08/06/2024 End: 40-79-2680DrztrvratimtyOPI [employer] Phone: comment on above:1 Occurrences starting 08/13/2022 until 4711Iuzjonr-XVSOjfvqst-ISW Lab STAT As Needed until discontinued starting 03/17/2020[facility] [employer], [place]Comment on [place]:As Needed until discontinued starting 03/17/2020Pulse oximetry, continuousMedina HospitalFlypost.co Phone: comment on above:Every 4hr until discontinued starting 07/18/2019Every 4hr until discontinued starting 04/22/2019Respiratory care evaluation onlyRespiratory care evaluation only Respiratory Care Routine As Needed until discontinued starting 07/22/2019[facility] [employer], [place]Comment on above:As Needed until discontinued starting 07/22/2019 End: 14-41-8726Vmrimzhcwjt pathogens DNA and RNA panel - Nasopharynx by JANIA with non-probe detectionResp Pathogens Panel/SARS CoV-2 Microbiology Routine Once for 1 Occurrences starting 12/30/2024 until 12/30/2024[facility] CenterMedeAnalytics [facility] Comment on above:Once for 1 Occurrences starting 12/30/2024 until 12/30/2024 End: 20-02-4980PGYK-CoV-2 (COVID-19) RNA [Presence] in Respiratory specimen by JANIA with probe detectionSARS/FLU A+B/RSV by NAAT/Molecular (M4RT Collection Tube) Microbiology STAT STAT for 1 Occurrences starting 12/30/2024 until 12/30/2024[facility] CenterSoftSyl Technologies [facility] Specialty HospitalComment on above:STAT for 1 Occurrences starting 12/30/2024 until 12/30/2024 End: 64-48-5100Vgewyu gram stainSputum gram stain Microbiology Routine One Time for 1 Occurrences starting 07/18/2019 until 07/18/2019[facility] [employer] [place] Comment on above:One Time for 1 Occurrences starting 07/18/2019 until 07/18/2019 End: 28-08-2583CDEMBGCQ PATHOLOGY REPORTSURGICAL PATHOLOGY REPORT Lab Routine Once for 1 Occurrences starting 08/15/2024 until 5Bon [facility] OhioComment on above:Once for 1 Occurrences starting 08/15/2024 until 08/15/2024 End: 93-01-3388Wrwqyskswp, reflex to microscopicUrinalysis, reflex to microscopic Lab STAT One Time for 1 Occurrences starting 03/21/2020 until 03/02[facility], HIComment on above:One Time for 1 Occurrences starting 03/21/2020 until 03/21/2020 Immunizations Immunization DateImmunizationNotesCare VoamzskuUqnaauji46-10-1790nozoizi toxoid, reduced diphtheria toxoid, and acellular pertussis vaccine, adsorbedCrystal Genevieve [facility] CenterInqnvk15-35-6549jdwydsfvmkmw polysaccharide vaccine, 23 valentAimee [facility] HospitalKymtbe11-67-1221ajakfcjvruxo vaccine, unspecified formulationJustin Andes DO Work Phone: [facility] Work Phone: [phone]lvdar, seasonal, injectable; 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: [Fluarix Quadravalent]Vahid [facility] Work Phone: comment on above:Note: Patient tolerated well. No signs or symptoms of adverse reactions. Patient waited in facilityfor 15 minutes.64-32-0721ocuzstuut, injectable, quadrivalent, preservative freeAimee [facility] Work Phone: [phone]vwvpuf virus vaccine, unspecified formulationSmicah Pickett MD Work Phone: E [facility] HospitalDtxozh99-69-3177bfubjkboz virus vaccine, unspecified formulationSmaria elena Rodriguez MD Work Phone: [facility]ITALXACUXE47-64-6305pypffqqmo, seasonal, injectableCrystal Genevieve [facility]03-09-2019influenza virus vaccine, unspecified formulationCrystal Genevieve [facility] 54-50-6666ayqneqjds, injectable, quadrivalent, preservative freeCrystal Genevieve [facility]03-09-2019Influenza, Quadv, 6 mo and older, IM, PF (Flulaval, Fluarix)VahidAdams County HospitalUbygjh84-34-0546sbruqesmmiyo conjugate vaccine, 13 [facility], IH86-64-3751fxxrbufvghqb conjugate vaccine, 7 [facility] Work Phone: [phone]uflver virus vaccine, unspecified formulationSmaria elena Rodriguez MD Work Phone: bon [facility] Work Phone: [phone]tjf, seasonal, injectablemee [place] Work Phone: [phone]x, injectable, quadrivalent, preservative free; 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: [FLU VAC NO PRSV 4 OTONIEL 3 YRS+][facility] 1827784-64-2513mjpzkremj, seasonal, injectable, preservative freeBertrand Chaffee Hospital 10-872785-52-9784UONEVVCPXISL ADMIN; 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: [IMMUNIZATION ADMIN]Zach [facility] 1027613-94-9273snqsyxthr virus vaccine, unspecified formulationVermont Psychiatric Care Hospital Work Phone: pCincinnati Shriners Hospital SystemComment on above:Note: Influenza (Adult)56-94-6860ypnddlihg, high dose seasonal, preservative-freeSelect [facility]ty [facility] Work Phone: Comment on above:Note: Influenza (Adult)01-07-2017 tetanus toxoid, reduced diphtheria toxoid, and acellular pertussis vaccine, adsorbedTriHealth Good Samaritan HospitalAkowxz17-02-6717vgqjqbvcw, injectable, quadrivalent, preservative free; 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: [FLU VAC NO PRSV 4 OTONIEL 3 YRS+][facility] 1271797-24-8872xaezjiovt, seasonal, injectableBertrand Chaffee Hospital 1943470-42-4928RRGELIWQDKNW ADMIN; 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: [IMMUNIZATION ADMIN]Zach GrimaldoWestwood Lodge Hospital 1783550-44-8925krpxmbort virus vaccine, unspecified formulationHca Healthcareen [facility] Work Phone: [facility] Work Phone: comment on above:Note: Influenza (Adult)02-10-2015 influenza, high dose seasonal, preservative-freeSelect Medical Specialty [facility] Work Phone: comment on above:Note: Influenza (Adult)12-30-2013 influenza virus vaccine, unspecified formulationTriHealth Good Samaritan Hospital 32-85-2025kpzqvplrb, seasonal, injectableCrystal Genevieve [facility]12-17-2009novel dnhlmwmgx-U8A8-39, preservative-free, injectableStefan Jennifer MARTINEZ Work Phone: [facility] Work Phone: Payers DatePayer CategoryPayerPolicy [id number]-pay2022Medicaid .[id number] 2022[facility]icaid [facility] Member Subscriber Plan / Payer (Effective 2022-Present) Name: Jonatan Olivarez Alan Relation to Subscriber: Self Name: Jonatan Olivarez Payer ID: [id number] (NAIC) Type: Not on file Address: [address] [id number] [id number] 1.2.840.813331.1.13.239.2.7.3.387039.83588-83-1335Idjnfcg [id number] 2.0.1.581457.3.28214-09-3469Tovqsaj [id number] 2.16840.1.935160.3.85485-68-4773EkgilajBUGCKQBKK ADVANTAGE PARAMOUNT ADVANTAGE xxxxxxxxxxx 2017- [phone] [address] [place] , [place] [address]ghxrdjjdaok 1.2.840.780420.1.13.239.2.7.3.458440.50466-35-5426Hfmcyui PARAMOUNT ADVANTAGE PARAMOUNT ADVANTAGE [id number] 2017- [phone] [address] [place], [place] [id number] 1.2.840.874218.1.13.239.2.7.3.931829.93895-91-6982XzwvvtzWLYJ 2.0.1.97911[id number] 2.0.1.903036.3.579.2.196 [id number] 2.0.1.514362.3.57[id number] 2.0.1.289418.3.57[id number] 2.0.1.562720.3.57[id number] 2.0.1.121748.3.57[id number] 2.840.1.896992.3.57[id number] 2.840.1.330743.3.57[id number] 2.16.840.1.298563.3.579.2.[id number] 2.16.840.1.672154.3.579.2.01047-02-5655Dchpxzj40324635 2.16.840.1.639202.3.57[id number] 2.16.840.1.552585.3.57[id number] 2.16.840.1.370981.3.57[id number] 2.16.840.1.890700.3.57[id number] 2.16.840.1.177641.3.579.2.72599-43-9003Fcubopb84044581 2.16.840.1.173073.3.579.[id number] 2.16.840.1.605420.3.579.[id number] 2.16.840.1.583141.3.57[id number] 2.16.840.1.326193.3.57[id number] 2.16.840.1.312035.3.579.2.8[id number] 2.16.840.1.925902.3.579.[id number] 2.16.840.1.561963.3.57[id number] 2.16.840.1.499109.3.579.2.0[id number] 2.16.840.1.677522.3.579.[id number] 2.16.840.1.875364.3.579.2.1[id number] 2.16.840.1.828368.3.57[id number] 2.16.840.1.535731.3.57[id number] 2.16.840.1.764834.3.579.2.6[id number] 2.16.840.1.740930.3.579.2.976635-75-6884Wiylcji806880338 2.16.840.1.872780.3.579.2.73[id number] 2.16.840.1.380752.3.579.2.053304-63-9221Pproztx600134301 2.16.840.1.272467.3.579.2.68[id number] 2.16.840.1.949718.3.579.[id number] 1.2.840.224778.1.13.239.2.[id number] 2.16.840.1.729297.3.579.2.531 Social History DateTypeDetailFacilityStart: 07-93-1224Tkfps tobacco smokerWestwood Lodge Hospital start: 01-13-2019 End: 13-63-6550Xeajprg every day smokerHealth [facility] AssertionFamily problems (finding)[facility] Work Phone: assertionGender identity finding (finding)[facility] Work Phone: assertionFinding of sexual orientation (finding)[facility] Work Phone: assertionTobacco user (finding)[facility] Work Phone: Tobacco smoking statusUnknown if ever smokedHealth [facility] Center Work Phone: start: 36-71-3007PoklioeicVBCCUMBERLAND HOSPITAL AssertionAlcohol consumption screening (procedure)[facility] Work Phone: start: 39-05-0053Sglvfqe of tobacco useCigarette SmokerProMedica Flower Hospital: 01-13-2019 End: 52-05-2407Hndwlguozk smoked current (pack per day) - ReportedDIGNITY [facility] RealD [facility]ENTERStart: 01-13-2019 End: 71-36-7822Cokjrjv intakeNoPAUL A. DEVER STATE SCHOOLFolkstr [facility]ENTERStart: 06-94-2859Eyl Assigned At BirthNot on fileProMedica Flower Hospital: 02-23-2019 End: 92-34-0666Ljmwseu intakeCurrent non-drinker of alcohol (finding)[facility] HospitalAshwiniingle person (finding)[facility] Work Phone: assertionEmotional stress (finding)[facility] Work Phone: Start: 09-03-2019 End: 49-52-7677Bjxqicw smoking status NHISCurrent some day smokerKettering Health [facility] Exposure to SARS-CoV-2 (event)Unable to assessAtrium Health Exposure to pollution (event)[facility] Work Phone: Start: 10-21-2019 End: 74-84-7269Smgxctp use and exposureNever usedProMedica Flower Hospital: 06-16-2021 End: 07-82-8903Fnwclrzo to SARS-CoV-2 (event)Not sureKettering Health [place]- [place], [place] AssertionSupport system deficit (finding)[facility] Work Phone: assertionFamily illness (situation)[facility] Work Phone: assertionProblem situation relating to social and personal history (finding)[facility] Work Phone: Start: 02-21-2021 End: 69-22-5881Owdrasv smoking status NHISLight tobacco smokerDiley Ridge Medical Center [employer] Phone: start: 02-21-2021 End: 81-32-6591Ppdugjj Comment1 cigarette every 1-2 daysDiley Ridge Medical Center [employer] Phone: start: 38-80-6131Mfstfio SDOH Xikcousxt6Iwkyh [employer] Work Phone: start: 48-69-5467Jyjjscu SDOH Food Tuobr5Dwhtd [employer] Work Phone: start: 07-19-2021 End: 58-58-5248Ygsmlfu intakeLifetime non-drinker (finding)[facility] Generaltart: 82-30-0969Cvatyfo SDOH Transport Non-Uvh42SIB [employer] Work Phone: start: 48-54-2613Dznycjz SDOH Housing Homeless Last Qnnr5CZA [facility] MEDICAL CENTERIROA Technologies Work Phone: (I/We) worried whether (my/our) food would run out before (I/we) got money to buy more.Never [facility] memorial hospitalBON WhiphandStart: 01-19-2024 End: 98-62-2451Atmewha smoking status NHISSmoker (finding)[facility] Hospitaltart: 84-98-1363Hnf Assigned At [facility] CenterHa the electric, gas, oil, or water company threatened to shut off services in your home in past 12MoNoProUpper Valley Medical Center SystemAre you now , , , , never or living with a partner? DivorcedProAtrium Health [facility] Health SystemHow often to you have a drink containing alcohol? NeverProAtrium Health [facility] Health SystemHow hard is it for you to pay for the very basics like food, housing, medical care, and heatingHardProAtrium Health Floyd [facility] Health SystemDo you feel stress - tense, restless, nervous, or anxious, or unable to sleep at night because yourmind is troubled all the time - these days [OSQ]Not at allSt. John of God Hospital [employer] SystemStart: 40-45-6543Pepvwsr Commentneeds a nicotine patch upon arrival [facility] HospitalPeaktart: 05-11-2012 End: 91-89-3011NtyXzaolw (finding)[facility] HospitalInnovari [facility] Special[facility] HospitalHas the Mapp, gas, oil, or water company threatened to shut off services in your home in past 12Mo YesSt. John of God Hospital Health SystemHow often to you have a drink containing alcohol? Monthly or lessProUpper Valley Medical Center System(I/We) worried whether (my/our) food would run out before (I/we) got money to buy more.Sometimes trueBon [facility] OhioNEGATED: Highlighted rowAssertionExposure to pollution (event)[facility] Work Phone: NEGATED: Highlighted rowAssertionCurrent drinker of alcohol (finding)[facility] Work Phone: NEGATED: Highlighted rowAssertionFinding relating to drug misuse behavior (finding)[facility] Work Phone: NEGATED: Highlighted rowAssertionIllicit drug use (finding)[facility] Work Phone: NEGATED: Highlighted rowAssertionMisuse of prescription only drugs (finding)[facility] Work Phone: NEGATED: Highlighted rowAssertionHealth [facility] Center Work Phone: NEGATED: Highlighted rowAssertionTobacco user (finding)[facility] Work Phone: Medical Equipment Procedure CodeEquipment CodeEquipment Original TextEquipment IdentifierDates Lancets Thin [id number]: 66-67-7570Kltu Metrix Blood Glucose Test In Vitro [id number]: 32-27-51940807942Kwnds: 12-14-2016 End: 56-34-0232mee as directed TO TEST BLOOD SUGAR three times a [id number] Start: 08-26-2014 End: 64-81-3991uxj as directed TO TEST BLOOD SUGAR three times a [id number] Start: 07-25-2019 End: 64-86-1210gji as directed TO TEST BLOOD SUGAR three times a [id number] Start: 03-19-2020 End: 48-31-0935Azegksfa sufficient amount for indicated testing frequency plus additional to accommodate PRN testing needs. Dispense all needed supplies to include: monitor, strips, lancing device, lancets, controlsolutions, alcohol swabs.[id number]: 86-35-1256Ljhk 3 times a day & as needed for symptoms of irregular blood glucose. Dispense sufficient amount for indicated testing frequency plus additional to accommodate PRN testing needs.[id number]: 03-23-2021 End: 06-63-5632Vzfw 3 times a day & as needed for symptoms of irregular blood glucose. Dispense sufficient amount for indicated testing frequency plus additional to accommodate PRN testing needs.[id number]: 19-28-2670Pmmtjl test blood sugar 1 times daily and prn for symptoms of hyperglycemia or hypoglycemia.[id number]: 54-61-1731Wjm Sft Tis 50cmx.49mm 16/8mm - [id number] - [id number]: 18-63-0895Hohvwho on above:Description: hemagard knitted collagen coated knitted polyester vascular prosthesis. Aorta bifemoralGft Hep Rr T6mm 60cm Rs X70cm - [id number] - [id number] Start: 04-32-1766Ihlwysr on above:Description: LEFT FEMORAL-POPLITEAL BYPASS1 strip by other route as needed for high blood sugar.[id number]: 07-16-2024 Goals DatePatient GoalDesired Activity/StatePersonal health goalPersonal health goal Comment on above: Evaluation of progress towards goal: patient will go to SNF for therapyPersonal health goalComment on above: Evaluation of progress towards goal: Patient plans to Home and resume Home Health with [facility] (RN/PT/OT). She is agreeable to [facility] and prefers to go to [facility] as it is closer to home. Personal health goalComment on above: Evaluation of progress towards goal: Patient plans to Home and resume Home Health with [facility] (RN/PT/OT). She states that she goes to [facility] in [place]. Functional Status [id number] statusPatient at Baseline [facility] Work Phone: [facility] Mental Status [id number] functionCognitive Status [facility]: Cognitive functionCognitive functioning was normal Cognitive function finding (finding)[facility] 04-12-2019 to 01-01-2025 Note Date & [id number] Nurse Note* Donna Napoles RN - 01/01/2025 3:55 PM EDT PTN called and stated that transportation is now being delayed d/t a crew shuffle and will be in approximately 60-90 minutes now. [facility]10-03-2025 Nurse Note* Donna Napoles RN - 01/01/2025 3:55 PM EDT PTN called and stated that transportation is now being delayed d/t a crew shuffle and will be in approximately 60-90 minutes now. * Donna Napoles RN - 01/01/2025 12:48 PM EDT Patient discharge orders were placed and reviewed. PIVs removed. Patient's family notified of discharge at this time. Transportation with PTN was arranged and ETA is set for 1600. PTN paperwork completed and sent via current process. IP mobile printed. CRF printed to be sent with patient. Report was called to Leena Blake [phone] and given to Marquita. Requested to have CRF faxed to [phone]. * Corrine Mcintosh RN - 01/01/2025 12:04 AM EDT Ladle Operator in to talk to patient about potassium replacement and change dressings. Patient stated that she did not want any more potassium tonight and stated that she would take more in the morning if needed. Patient stated that she only wanted the left dressing changed tonight and not both. Patient also talked to about nasal swab for flu/covid and patient refused to have that done. Ladle Operator explained to patient why all were ordered and patient continues to decline to have them done. * Anushka Zimmerman RN - 12/31/2024 6:25 AM EDT Pt uncooperative with taking am medications. Refusing to take all of her potassium replacement, pt took 30 of the 50meq needed for replacement per protocol. Pt educated on importance of taking potassium and risks of not taking potassium. Pt continues to refuse. [facility]* Donna Napoles RN - 01/01/2025 12:48 PM EDT Patient discharge orders were placed and reviewed. PIVs removed. Patient's family notified of discharge at this time. Transportation with PTN was arranged and ETA is set for 1600. PTN paperwork completed and sent via current process. IP mobile printed. CRF printed to be sent with patient. Report was called to Leena Blake [phone] and given to Marquita. Requested to have CRF faxed to [phone]. [facility]10-03-2025 Plan of care note* Plan of Care - Donna Napoles RN - 01/01/2025 12:47 PM EDT Problem: Multi-Drug Resistant Organism / Rule-Out Infection Prevention Goal: Prevent transmission of infection Description: INTERVENTIONS 1. Place patient in private room or in room with patient with same disease 2. Discard single-use items 3. Clean reusable equipment between patients 4. Wear gloves for direct and indirect contact with patient or contaminants 5. Change gloves between tasks and procedures 6. Wash hands before and after caring for each patient 7. Wear appropriate personal protective equipment in relation to the indicated isolation type 8. Place appropriate isolation signage on patient's door 9. Provide patient/ patient sales and marketing representative with isolation education. Outcome: Completed Problem: Potential for Compromised Skin Integrity Goal: Skin integrity is maintained or improved Description: Patient's goal is: INTERVENTIONS 1. Perform initial skin assessment on admission and as needed 2. Turn patient every 2 hours and PRN 3. Relieve pressure to bony prominences 4. Avoid shearing 5. Keep skin clean and dry 6. Alternate a full bath with partial baths for elderly 7. Apply lotion/moisturizer on skin 8. Monitor patient's hygiene practices 9. Float heels 10. Collaborate with interdisciplinary team and initiate plans and interventions as needed Outcome: Completed Goal: Patient's nutritional intake is adequate Description: Patient's goal is: INTERVENTIONS 1. Assess and monitor food intake and supplements, patient food preferences, nausea, vomiting, labs, oral cavity (gums, teeth, tongue, mucosa), proper denture fit, and cultural beliefs 2. Monitor for signs of hypoglycemia and hyperglycemia 3. Collaborate with interdisciplinary team and initiate plan and interventions as ordered 4. Monitor patient's weight 5. Assist patient with meals/food selection 6. Assist patient with eating 7. Allow adequate time for meals 8. Provide pleasant environment during mealtime 9. Increase social contact during mealtimes 10. Plan activities to conserve energy 11. Encourage/perform oral hygiene as appropriate 12. Encourage patient to take dietary supplement as ordered 13. Collaborate with clinical hospital supervisor 14. Include patient/ patient's sales and marketing representative in decisions related to nutrition Outcome: Completed Problem: Urinary Incontinence Goal: Perineal skin integrity is maintained or improved Description: INTERVENTIONS 1. Assess genitourinary system, perineal skin, labs (urinalysis), and history of incontinence to include past management, aggravating, and alleviating factors 2. Keep skin clean and dry 3. Apply skin protectant 4. Develop skin care regimen 5. Provide privacy when changing patients incontinence device to maintain their dignity 6. Consider placing an indwelling catheter 7. Collaborate with interdisciplinary team and initiate plans and interventions as needed Outcome: Completed Problem: Pain Goal: Patient goal is pain score less than 4, able to rest, and participant in treatment plan as appropriate Description: INTERVENTIONS: 1. Encourage patient or legal sales and marketing representative to report early pain and ask for pain medicine when needed 2. Assess pain using appropriate pain scale and include the scale used when documenting 3. Administer analgesics based on type and severity of pain and evaluate response within appropriate time frame 4. Implement non-pharmacological measures as appropriate and evaluate response 5. Consider cultural and social influences on pain and pain management 6. Notify LIP if interventions ineffective or patient reports new pain 7. Monitor vital signs including pulse ox, end-tidal CO2 based on pain intervention 8. Reassess pain per policy 9. Teach patient or legal sales and marketing representative interventions for comforting Outcome: Completed Problem: Safety Goal: Patient will be injury free during hospitalization Description: INTERVENTIONS: 1. Assess patient's risk for falls and implement fall prevention plan of care per policy 2. Provide and maintain a safe environment 3. Proper use of double Identifiers 4. Medication administration using the 5 rights 5. Hand hygiene 6. Specimens are labeled at the bedside 7. Instruct patient/ patient sales and marketing representative about use of safety devices 8. Include patient/ patient sales and marketing representative in decisions related to safety Outcome: Completed Problem: Infection Goal: Absence of infection during hospitalization Description: INTERVENTIONS 1. Assess and monitor for signs and symptoms of infection. 2. Monitor lab/diagnostic results. 3. Monitor all insertion sites i.e., indwelling lines, tubes and drains. 4. Monitor endotracheal (as able) and nasal secretions for changes in amount and color. 5. Administer medications as ordered. 6. Instruct and encourage patient and family to use good hand hygiene technique. 7. Identify and instruct patient/patient sales and marketing representative in use of appropriate isolation precautionsfor identified infection/symptoms. 8. Provide and discuss with patient/patient sales and marketing representative on educational MDRO sheet. 9. Encourage and monitor nutritional status daily and consult hospital supervisor if indicated. 10. Implement neutropenic guidelines as needed. Outcome: Completed Problem: Knowledge Deficit Goal: Patient/patient sales and marketing representative demonstrates understanding of disease process, treatment plan,medications, and discharge instructions Description: INTERVENTIONS 1. Complete learning assessment and assess knowledge base 2. Provide teaching at level of understanding 3. Provide teaching via preferred learning method(s) Outcome: Completed Problem: Discharge Planning Goal: Discharge to post-acute care, other facility, or home with appropriate resources Description: Patient's goal is: INTERVENTIONS 1. Conduct assessment to determine patient/family and health care team treatment goals, and need for post-acute services based on payer coverage, community resources, and patient preferences, and barriers to discharge 2. Coordinate with Social work, Care Navigation, and Utilization Review to arrange appropriate level of services according to patient's needs based on patient preference and payer coverage in collaboration with the physician and health care team 3. Address psychosocial, clinical, and financial barriers to discharge as identified in assessment in conjunction with the patient/family and health care team 4. Consult appropriate ancillary services (i.e.. PT/OT/ST, etc) as needed 5. Communicate with and update the patient/family, physician, and health care team regarding progress on the discharge plan 6. Identify discharge learning needs (meds, wound care, etc). 7. Arrange for needed discharge transportation as appropriate Outcome: Completed Problem: Moderate - High Risk Fall Score Description: Larose Fall Score of =/> 25 or indicated by [facility] Assessment Goal: Patient should be free from fall Description: Interventions: 1. [place] to environment 2. Hourly rounds addressing the 4 P's (Pain, Positioning, Possessions, Potty) 3. Clear area of hazards (spills, clutter, electrical cords, unnecessary equipment) 4. Place equipment (bed & TV controls, call light, phone, urinal) within reach 5. Encourage patient to wear glasses and hearing aides as appropriate 6. Maintain bed in lowest position 7. Lock wheels on bed/wheelchair 8. Provide adequate lighting, including night light 9. Assess need for additional bedding, food/fluids, pain med's prior to sleep/routinely 10. Provide gripper slippers or personal non-skid footwear 11. Teach patient and patient sales and marketing representative to maintain environment for safety and engage in all aspects of fall prevention program 12. Remind patient to call for help before getting out of bed 13. Initiate bed/chair/exit alarms supportive devices as appropriate, (chair wedge, no-skid floor mat, raised edge mattress, hip protectors) 14. Locate patient bed assignment for optimal visualization 15. Evaluate and identify Safe Patient Handling Equipment needs 16. Provide supervision when out of bed or chair 17. Utilize gait belt as needed to assist with ambulation 18. Place adaptive equipment (cane, walker) within reach 19. Request patient sales and marketing representative bring adaptive equipment/mobility aids from home or obtain and provide as needed 20. Consult pharmacy regarding effects of med's affecting mobility, cognition, and alternatives 21. Obtain physician order for PT if risk factors associated with mobility are present 22. Obtain physician order for OT as appropriate 23. Utilize diversional activities 24. Educate patient and patient sales and marketing representative how to maintain a safe environment during visitationtimes (notify nurse prior to leaving bedside) 25. Consider appropriateness of medical or non-medical art therapist 26. Set up voiding schedule as appropriate (every 2 hours) Outcome: Completed Problem: Readmission Risk Reduction Goal: Readmission Risk Assessment Description: Utilize readmission risk score in the development of discharge plan INTERVENTIONS: 1. Discuss patient's risk of readmission at multidisciplinary discharge transition rounds. 2. Comprehensive assessment of patient's risk of readmission (functional, psychosocial, cognitive). 3. Collaborate with patient / caregiver to identify needs. 4. Handoff to next level of care provider (client care coordinator, PCP, home care). 5. Complete follow up phone call within 72 hours. Outcome: Completed Goal: Discharge Medication Plan Description: Develop a plan to ensure that medications are obtained at the time of discharge INTERVENTIONS: 1. Utilize outpatient pharmacy to deliver medications to patient prior to discharge, where available. 2. Ensure that prescriptions are sent to the patient's pharmacy of choice prior to patient leaving the hospital. If possible, confirm authorizations and co-pays and communicate to patient. 3. During discharge follow-up phone call, confirm that prescriptions have been filled. Outcome: Completed Goal: Follow-Up Appointments Description: Schedule patient-centric follow-up appointments prior to discharge INTERVENTIONS: 1. Identify recommended / appropriate timeframes for follow-up. 2. Discuss transportation needs and scheduling preferences with patient. 3. Verify that all follow-up appointments are scheduled prior to discharge. Outcome: Completed Goal: Discharge Medication Reconciliation Description: Review discharge medication reconciliation for accuracy INTERVENTIONS: 1. Include last dose date / time on the discharge medication list. 2. Utilize available resources to identify and address issues. 3. Consider use of a Discharge Time-Out or Discharge Final Check. 4. Refer to homecare, as appropriate, for home medication review. Outcome: Completed Goal: Discharge Instructions Description: Provide accurate and complete discharge instructions, taking into account health literacy of the patient INTERVENTIONS: 1. Assess patient's learning needs including health literacy. 2. Provide disease-specific education as appropriate. 3. Consider use of teach-back to verify patient / caregiver understanding. 4. Verify understanding of discharge instructions. 5. Consider use of a Discharge Time-Out or Discharge Final-Check. Outcome: Completed [facility] [id number] Miscellaneous Notes* Plan of Care - Donna Napoles RN - 01/01/2025 12:47 PM EDT Problem: Multi-Drug Resistant Organism / Rule-Out Infection Prevention Goal: Prevent transmission of infection Description: INTERVENTIONS 1. Place patient in private room or in room with patient with same disease 2. Discard single-use items 3. Clean reusable equipment between patients 4. Wear gloves for direct and indirect contact with patient or contaminants 5. Change gloves between tasks and procedures 6. Wash hands before and after caring for each patient 7. Wear appropriate personal protective equipment in relation to the indicated isolation type 8. Place appropriate isolation signage on patient's door 9. Provide patient/ patient sales and marketing representative with isolation education. Outcome: Completed Problem: Potential for Compromised Skin Integrity Goal: Skin integrity is maintained or improved Description: Patient's goal is: INTERVENTIONS 1. Perform initial skin assessment on admission and as needed 2. Turn patient every 2 hours and PRN 3. Relieve pressure to bony prominences 4. Avoid shearing 5. Keep skin clean and dry 6. Alternate a full bath with partial baths for elderly 7. Apply lotion/moisturizer on skin 8. Monitor patient's hygiene practices 9. Float heels 10. Collaborate with interdisciplinary team and initiate plans and interventions as needed Outcome: Completed Goal: Patient's nutritional intake is adequate Description: Patient's goal is: INTERVENTIONS 1. Assess and monitor food intake and supplements, patient food preferences, nausea, vomiting, labs, oral cavity (gums, teeth, tongue, mucosa), proper denture fit, and cultural beliefs 2. Monitor for signs of hypoglycemia and hyperglycemia 3. Collaborate with interdisciplinary team and initiate plan and interventions as ordered 4. Monitor patient's weight 5. Assist patient with meals/food selection 6. Assist patient with eating 7. Allow adequate time for meals 8. Provide pleasant environment during mealtime 9. Increase social contact during mealtimes 10. Plan activities to conserve energy 11. Encourage/perform oral hygiene as appropriate 12. Encourage patient to take dietary supplement as ordered 13. Collaborate with clinical hospital supervisor 14. Include patient/ patient's sales and marketing representative in decisions related to nutrition Outcome: Completed Problem: Urinary Incontinence Goal: Perineal skin integrity is maintained or improved Description: INTERVENTIONS 1. Assess genitourinary system, perineal skin, labs (urinalysis), and history of incontinence to include past management, aggravating, and alleviating factors 2. Keep skin clean and dry 3. Apply skin protectant 4. Develop skin care regimen 5. Provide privacy when changing patients incontinence device to maintain their dignity 6. Consider placing an indwelling catheter 7. Collaborate with interdisciplinary team and initiate plans and interventions as needed Outcome: Completed Problem: Pain Goal: Patient goal is pain score less than 4, able to rest, and participant in treatment plan as appropriate Description: INTERVENTIONS: 1. Encourage patient or legal sales and marketing representative to report early pain and ask for pain medicine when needed 2. Assess pain using appropriate pain scale and include the scale used when documenting 3. Administer analgesics based on type and severity of pain and evaluate response within appropriate time frame 4. Implement non-pharmacological measures as appropriate and evaluate response 5. Consider cultural and social influences on pain and pain management 6. Notify LIP if interventions ineffective or patient reports new pain 7. Monitor vital signs including pulse ox, end-tidal CO2 based on pain intervention 8. Reassess pain per policy 9. Teach patient or legal sales and marketing representative interventions for comforting Outcome: Completed Problem: Safety Goal: Patient will be injury free during hospitalization Description: INTERVENTIONS: 1. Assess patient's risk for falls and implement fall prevention plan of care per policy 2. Provide and maintain a safe environment 3. Proper use of double Identifiers 4. Medication administration using the 5 rights 5. Hand hygiene 6. Specimens are labeled at the bedside 7. Instruct patient/ patient sales and marketing representative about use of safety devices 8. Include patient/ patient sales and marketing representative in decisions related to safety Outcome: Completed Problem: Infection Goal: Absence of infection during hospitalization Description: INTERVENTIONS 1. Assess and monitor for signs and symptoms of infection. 2. Monitor lab/diagnostic results. 3. Monitor all insertion sites i.e., indwelling lines, tubes and drains. 4. Monitor endotracheal (as able) and nasal secretions for changes in amount and color. 5. Administer medications as ordered. 6. Instruct and encourage patient and family to use good hand hygiene technique. 7. Identify and instruct patient/patient sales and marketing representative in use of appropriate isolation precautionsfor identified infection/symptoms. 8. Provide and discuss with patient/patient sales and marketing representative on educational MDRO sheet. 9. Encourage and monitor nutritional status daily and consult hospital supervisor if indicated. 10. Implement neutropenic guidelines as needed. Outcome: Completed Problem: Knowledge Deficit Goal: Patient/patient sales and marketing representative demonstrates understanding of disease process, treatment plan,medications, and discharge instructions Description: INTERVENTIONS 1. Complete learning assessment and assess knowledge base 2. Provide teaching at level of understanding 3. Provide teaching via preferred learning method(s) Outcome: Completed Problem: Discharge Planning Goal: Discharge to post-acute care, other facility, or home with appropriate resources Description: Patient's goal is: INTERVENTIONS 1. Conduct assessment to determine patient/family and health care team treatment goals, and need for post-acute services based on payer coverage, community resources, and patient preferences, and barriers to discharge 2. Coordinate with Social work, Care Navigation, and Utilization Review to arrange appropriate level of services according to patient's needs based on patient preference and payer coverage in collaboration with the physician and health care team 3. Address psychosocial, clinical, and financial barriers to discharge as identified in assessment in conjunction with the patient/family and health care team 4. Consult appropriate ancillary services (i.e.. PT/OT/ST, etc) as needed 5. Communicate with and update the patient/family, physician, and health care team regarding progress on the discharge plan 6. Identify discharge learning needs (meds, wound care, etc). 7. Arrange for needed discharge transportation as appropriate Outcome: Completed Problem: Moderate - High Risk Fall Score Description: Larose Fall Score of =/> 25 or indicated by [facility] Assessment Goal: Patient should be free from fall Description: Interventions: 1. [place] to environment 2. Hourly rounds addressing the 4 P's (Pain, Positioning, Possessions, Potty) 3. Clear area of hazards (spills, clutter, electrical cords, unnecessary equipment) 4. Place equipment (bed & TV controls, call light, phone, urinal) within reach 5. Encourage patient to wear glasses and hearing aides as appropriate 6. Maintain bed in lowest position 7. Lock wheels on bed/wheelchair 8. Provide adequate lighting, including night light 9. Assess need for additional bedding, food/fluids, pain med's prior to sleep/routinely 10. Provide gripper slippers or personal non-skid footwear 11. Teach patient and patient sales and marketing representative to maintain environment for safety and engage in all aspects of fall prevention program 12. Remind patient to call for help before getting out of bed 13. Initiate bed/chair/exit alarms supportive devices as appropriate, (chair wedge, no-skid floor mat, raised edge mattress, hip protectors) 14. Locate patient bed assignment for optimal visualization 15. Evaluate and identify Safe Patient Handling Equipment needs 16. Provide supervision when out of bed or chair 17. Utilize gait belt as needed to assist with ambulation 18. Place adaptive equipment (cane, walker) within reach 19. Request patient sales and marketing representative bring adaptive equipment/mobility aids from home or obtain and provide as needed 20. Consult pharmacy regarding effects of med's affecting mobility, cognition, and alternatives 21. Obtain physician order for PT if risk factors associated with mobility are present 22. Obtain physician order for OT as appropriate 23. Utilize diversional activities 24. Educate patient and patient sales and marketing representative how to maintain a safe environment during visitationtimes (notify nurse prior to leaving bedside) 25. Consider appropriateness of medical or non-medical art therapist 26. Set up voiding schedule as appropriate (every 2 hours) Outcome: Completed Problem: Readmission Risk Reduction Goal: Readmission Risk Assessment Description: Utilize readmission risk score in the development of discharge plan INTERVENTIONS: 1. Discuss patient's risk of readmission at multidisciplinary discharge transition rounds. 2. Comprehensive assessment of patient's risk of readmission (functional, psychosocial, cognitive). 3. Collaborate with patient / caregiver to identify needs. 4. Handoff to next level of care provider (client care coordinator, PCP, home care). 5. Complete follow up phone call within 72 hours. Outcome: Completed Goal: Discharge Medication Plan Description: Develop a plan to ensure that medications are obtained at the time of discharge INTERVENTIONS: 1. Utilize outpatient pharmacy to deliver medications to patient prior to discharge, where available. 2. Ensure that prescriptions are sent to the patient's pharmacy of choice prior to patient leaving the hospital. If possible, confirm authorizations and co-pays and communicate to patient. 3. During discharge follow-up phone call, confirm that prescriptions have been filled. Outcome: Completed Goal: Follow-Up Appointments Description: Schedule patient-centric follow-up appointments prior to discharge INTERVENTIONS: 1. Identify recommended / appropriate timeframes for follow-up. 2. Discuss transportation needs and scheduling preferences with patient. 3. Verify that all follow-up appointments are scheduled prior to discharge. Outcome: Completed Goal: Discharge Medication Reconciliation Description: Review discharge medication reconciliation for accuracy INTERVENTIONS: 1. Include last dose date / time on the discharge medication list. 2. Utilize available resources to identify and address issues. 3. Consider use of a Discharge Time-Out or Discharge Final Check. 4. Refer to homecare, as appropriate, for home medication review. Outcome: Completed Goal: Discharge Instructions Description: Provide accurate and complete discharge instructions, taking into account health literacy of the patient INTERVENTIONS: 1. Assess patient's learning needs including health literacy. 2. Provide disease-specific education as appropriate. 3. Consider use of teach-back to verify patient / caregiver understanding. 4. Verify understanding of discharge instructions. 5. Consider use of a Discharge Time-Out or Discharge Final-Check. Outcome: Completed * Plan of Care - Corrine Mcintosh RN - 12/31/2024 8:47 PM EDT Problem: Multi-Drug Resistant Organism / Rule-Out Infection Prevention Goal: Prevent transmission of infection Description: INTERVENTIONS 1. Place patient in private room or in room with patient with same disease 2. Discard single-use items 3. Clean reusable equipment between patients 4. Wear gloves for direct and indirect contact with patient or contaminants 5. Change gloves between tasks and procedures 6. Wash hands before and after caring for each patient 7. Wear appropriate personal protective equipment in relation to the indicated isolation type 8. Place appropriate isolation signage on patient's door 9. Provide patient/ patient sales and marketing representative with isolation education. Outcome: Progressing Note: Evaluation of progress towards goal: Patient remains in isolation. Problem: Potential for Compromised Skin Integrity Goal: Skin integrity is maintained or improved Description: Patient's goal is: INTERVENTIONS 1. Perform initial skin assessment on admission and as needed 2. Turn patient every 2 hours and PRN 3. Relieve pressure to bony prominences 4. Avoid shearing 5. Keep skin clean and dry 6. Alternate a full bath with partial baths for elderly 7. Apply lotion/moisturizer on skin 8. Monitor patient's hygiene practices 9. Float heels 10. Collaborate with interdisciplinary team and initiate plans and interventions as needed Outcome: Progressing Note: Evaluation of progress towards goal: No new skin breakdown noted/assessed q shift/brief checked and felicity care given when incontinent/barrier cream applied as needed/ Skin care given as needed/ Goal: Patient's nutritional intake is adequate Description: Patient's goal is: INTERVENTIONS 1. Assess and monitor food intake and supplements, patient food preferences, nausea, vomiting, labs, oral cavity (gums, teeth, tongue, mucosa), proper denture fit, and cultural beliefs 2. Monitor for signs of hypoglycemia and hyperglycemia 3. Collaborate with interdisciplinary team and initiate plan and interventions as ordered 4. Monitor patient's weight 5. Assist patient with meals/food selection 6. Assist patient with eating 7. Allow adequate time for meals 8. Provide pleasant environment during mealtime 9. Increase social contact during mealtimes 10. Plan activities to conserve energy 11. Encourage/perform oral hygiene as appropriate 12. Encourage patient to take dietary supplement as ordered 13. Collaborate with clinical hospital supervisor 14. Include patient/ patient's sales and marketing representative in decisions related to nutrition Outcome: Progressing Note: Evaluation of progress towards goal: Patient tolerating diet as ordered Problem: Urinary Incontinence Goal: Perineal skin integrity is maintained or improved Description: INTERVENTIONS 1. Assess genitourinary system, perineal skin, labs (urinalysis), and history of incontinence to include past management, aggravating, and alleviating factors 2. Keep skin clean and dry 3. Apply skin protectant 4. Develop skin care regimen 5. Provide privacy when changing patients incontinence device to maintain their dignity 6. Consider placing an indwelling catheter 7. Collaborate with interdisciplinary team and initiate plans and interventions as needed Outcome: Progressing Note: Evaluation of progress towards goal: Felicity care done PRN. Problem: Pain Goal: Patient goal is pain score less than 4, able to rest, and participant in treatment plan as appropriate Description: INTERVENTIONS: 1. Encourage patient or legal sales and marketing representative to report early pain and ask for pain medicine when needed 2. Assess pain using appropriate pain scale and include the scale used when documenting 3. Administer analgesics based on type and severity of pain and evaluate response within appropriate time frame 4. Implement non-pharmacological measures as appropriate and evaluate response 5. Consider cultural and social influences on pain and pain management 6. Notify LIP if interventions ineffective or patient reports new pain 7. Monitor vital signs including pulse ox, end-tidal CO2 based on pain intervention 8. Reassess pain per policy 9. Teach patient or legal sales and marketing representative interventions for comforting Outcome: Progressing Note: Evaluation of progress towards goal: Patient has PO percocet PRN Problem: Safety Goal: Patient will be injury free during hospitalization Description: INTERVENTIONS: 1. Assess patient's risk for falls and implement fall prevention plan of care per policy 2. Provide and maintain a safe environment 3. Proper use of double Identifiers 4. Medication administration using the 5 rights 5. Hand hygiene 6. Specimens are labeled at the bedside 7. Instruct patient/ patient sales and marketing representative about use of safety devices 8. Include patient/ patient sales and marketing representative in decisions related to safety Outcome: Progressing Note: Evaluation of progress towards goal: Patient safety maintained when ambulating/gait belt and safety equipment used as needed, Dual Identifiers used with all med passing and specimen collection,hand hygiene done prior to and after patient care, family and patient hand hygiene encouraged. Problem: Infection Goal: Absence of infection during hospitalization Description: INTERVENTIONS 1. Assess and monitor for signs and symptoms of infection. 2. Monitor lab/diagnostic results. 3. Monitor all insertion sites i.e., indwelling lines, tubes and drains. 4. Monitor endotracheal (as able) and nasal secretions for changes in amount and color. 5. Administer medications as ordered. 6. Instruct and encourage patient and family to use good hand hygiene technique. 7. Identify and instruct patient/patient sales and marketing representative in use of appropriate isolation precautionsfor identified infection/symptoms. 8. Provide and discuss with patient/patient sales and marketing representative on educational MDRO sheet. 9. Encourage and monitor nutritional status daily and consult hospital supervisor if indicated. 10. Implement neutropenic guidelines as needed. Outcome: Progressing Note: Evaluation of progress towards goal: IV antibiotics continues for infection. 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 Complete learning assessment and assess knowledge base 2. Provide teaching at level of understanding 3. Provide teaching via preferred learning method(s) Outcome: Progressing Note: Evaluation of progress towards goal: All medications reviewed prior to being given including side affect/dose/frequency/verbalized understanding Problem: Discharge Planning Goal: Discharge to post-acute care, other facility, or home with appropriate resources Description: Patient's goal is: INTERVENTIONS 1. Conduct assessment to determine patient/family and health care team treatment goals, and need for post-acute services based on payer coverage, community resources, and patient preferences, and barriers to discharge 2. Coordinate with Social work, Care Navigation, and Utilization Review to arrange appropriate level of services according to patient's needs based on patient preference and payer coverage in collaboration with the physician and health care team 3. Address psychosocial, clinical, and financial barriers to discharge as identified in assessment in conjunction with the patient/family and health care team 4. Consult appropriate ancillary services (i.e.. PT/OT/ST, etc) as needed 5. Communicate with and update the patient/family, physician, and health care team regarding progress on the discharge plan 6. Identify discharge learning needs (meds, wound care, etc). 7. Arrange for needed discharge transportation as appropriate Outcome: Progressing Note: Evaluation of progress towards goal: Patient plans on going to [place] upon discharge. * Discharge Planning Note - Jodee Cook RN - 12/31/2024 12:08 PM EDT 12/31/24 [id number] Patient Information Initial Pre-Hospitalization Assessment Completed? In-Progress In-Progress Reason: Attempted assessment: patient unable to participate/Contacts unavailable (patient sleeping, unable to wake up. RN notified. CN called patient's son, no answer. Unable to leave voicemail. CN called [facility], no answer. Voicemail left.) Support System Family Members Discharge Planning Type of Residence assisted Care Facility Name [facility] [address] [place] [address] Home Care Services No Income Information Income Information Retired/Pension/Social Security Services Requested Patient expects to be discharged to: SNF Discharge Disposition SNF SNF Name [facility] [address] [place] [address] DISCHARGE PLANNING NOTE CN attempted to complete assessment w/ paitent at bedside. Patient sleeping deeply, unable to arouse. RN notified. CN called patient's son, no answer. Unable to leave voicemail. CN called [place], no answer. Voicemail left. Plan: Return to [place]. Facility called, voicemail left. Will clarify patient's level of care. [facility] [address] [place] [address] - Jodee Cook RN 12/31/24 12:12 PM Update: Ladle Operator spoke w/ [facility]. Patient is a long-term resident at facility and can return once medically ready. - Jodee Cook RN 12/31/24 2:21 PM * Plan of Care - Juan Carlos Moss RPH - 12/31/2024 11:00 AM EDT Problem: Medication Description: If medication is necessary, use low-risk medication that does not interfere with what matters to the older adult patient, mobility, or mentation across settings of care. Goal: Patient will be screened for high-risk medications once per stay Description: Interventions: 1. Pharmacist to perform medication review to screen for high-risk medications 2. Pharmacist to identify high-risk medications in the Plan of Care note 3. Pharmacist to make recommendations for follow-up in the Plan of Care note, if warranted 12/31/2024 1100 by TALA Rangel Outcome: Completed Note: Medications individually and in combination may interfere with What Matters, Mentation, and safe Mobility because of the increased risk of confusion, delirium, unsteadiness and falls. Profile review indicates this patients has active orders for Seroquel and Percocet. Chart review also shows no change in renal function. 12/31/2024 1059 by TALA Rangel Reactivated 12/31/2024 1056 by TALA Rangel Outcome: Completed * Wound Care - Anushka Zimmerman RN - 12/30/2024 11:05 PM EDT Wound care and dressing change completed to RLE. See photos in Media.No rinse wound cleanser applied to all wounds. Iodine applied to R inner/mid foot dry scabbed area, R outer heel multiple small scabbed areas, scabbed areas top of R foot, et R post great toe and 2nd toe. Alginate applied to R achilles and and heel area et covered w/ abd. 2x2's applied to cover post R great and 2nd toes.All wound areas then wrapped w/ gauze roll. Pt tolerated well. * Wound Care - Anushka Zimmerman RN - 12/30/2024 10:50 PM EDT Wound care and dressing change completed to LLE. See photos in media. No rinse wound cleanser applied to scabbed et open areas. Betadine applied to post great toe and post 2nd toe. Wounds circular inshape, no drg noted. Tissue pink. Betadine applied to scabbed areas L lateral/outer foot. No drainage noted. Left heel circular open area, tissue pink, sanchez in center. Skin surrounding area dry/pink/scaly. Alginate applied to L heel 2x2s applied to open areas post toes. ABD over top of alginate and L outer foot. Wound areas then wrapped w/ gauze roll. Pt tolerated well. [facility] Narrative* Nat Reynolds MD - 01/01/2025 12:00 PM EDT Images from the original note were not included. [facility] INTERNAL MEDIC[facility] [address] [facility] [id number] Hospital Medicine Discharge Summary Patient: Jonatan Olivarez Date of : 1960 Room: Encounter date: 01/01/25 Hospital Day: 3 DATE OF ADMISSION: 12/30/2024 DATE OF DISCHARGE:01/01/2025 DISCHARGE DIAGNOSES Principal Problem: Acute cystitis without hematuria Active Problems: Hypothyroidism Tobacco abuse COPD with acute exacerbation ([facility]) Hyperlipidemia Primary hypertension Type 2 diabetes mellitus with diabetic foot infection ([facility]) Osteomyelitis of left foot ([facility]) A-fib ([facility]) Controlled type 2 diabetes mellitus with diabetic peripheral angiopathy and gangrene, without long-term current use of insulin ([facility]) CONSULTANTS none PCP: Osmar Rodriguez MD PROCEDURES none HOSPITAL COURSE SUMMARY Jonatan Olivarez is a 64 y.o. female who presented with hypoxia. It is noted that patient was 72% on 2 L upon arrival from [place]. Per staff her readings had been from 48-70% over the last day. Patient denies any shortness of breath or chest pain. She wears 2 L nasal cannula at baseline. Patient was bumped up to 6 L when they arrived she was given a DuoNeb and improved. Of heart disease, CAD, COPD, diabetes, hypertension, hypothyroidism. Patient is a current everyday smoker half pack a day for 40 years. Revealed left basilar opacity, possible atelectasis versus pneumonia, mild perihilar pulmonary vascular congestion with interstitial edema. CTA chest showing no evidence of pulmonary embolism, findings concerning for pulmonary artery hypertension, septal thickening could relate to mild vascular congestion, cardiomegaly, unchanged mediastinal and hilar adenopathy. Lab work remarkable for hemoglobin 11, INR 2, D-dimer 514, potassium 2.8, chloride 93, urinalysis positive for nitrates. Admitted for acute cystitis without hematuria. Hospital course: Acute hypoxic respiratory failure-COPD exacerbation versus fluid overload Currently on Rocephin and doxy -d/c on doxy and ceftin 3 days Mucinex DuoNebs-continue home inhalers Received Solu-Medrol every 8 hours- continue home steroids Encouraged incentive spirometer Check respiratory pathogen panel- pt refused Currently on 2 L nasal cannula- baselnie D-dimer 514 CT negative for PE did reveal vascular congestion BNP 248 Lasix 40 IV today, is on 20 daily at home continue home dose Acute cystitis without hematuria UA positive for nitrates Continue on Rocephin-ceftin at d/c Hypokalemia Potassium 2.8 on admission- 3.5 youth nutritional monitor Daily supplement Is on lasix 20 daily Essential hypertension Chronic diastolic congestive heart failure Norvasc, Coreg, Cozaar, eliquis, asa Midodrine prn Diabetic polyneuropathy associated with type 2 diabetes Gabapentin Insulin sliding scale Carb controlled diet Last A1c 7.6 continue home meds Osteomyelitis of left foot - second toe On Levaquin per ID, recently admitted for this- needs 4 week total therapy- end date 01/08 Wound care WNL QTC on Levaquin History of tobacco abuse Encouraged cessation Hypothyroidism Continue Synthroid Depression Supportive care Continue home medications Chronic iron deficiency anemia Stable Pt instructed to follow up with PCP in one week. Instructed to seek medical attention if symptoms persist or worsen or if you develop chest pain or shortness of breath. Sepsis suspected, no-not clinically evident at this time. Discharge Day Progress Note 01/01/25 No overnight events and remains hemodynamically stable. Review of Systems Constitutional: Negative for chills and fever. HENT: Negative for ear pain and sore throat. Eyes: Negative for pain and visual disturbance. Respiratory: Negative for cough and shortness of breath. Cardiovascular: Negative for chest pain and palpitations. Gastrointestinal: Negative for abdominal pain and vomiting. Genitourinary: Negative for dysuria and hematuria. Musculoskeletal: Negative for arthralgias and back pain. Skin: Negative for color change and rash. Neurological: Negative for seizures and syncope. All other systems reviewed and are negative. BP 147/87 Pulse 76 Temp 36.7 C (98 F) (Oral) Resp 20 Ht 154.9 cm (5' 1 ) Wt 52.8 kg (116 lb 4.8 oz) SpO2 94% BMI 21.97 kg/m Temp: [36.5 C (97.7 F)-36.7 C (98 F)] 36.7 C (98 F) Pulse: [75-98] 76 Resp: [18-20] 20 BP: (125-148)/(53-87) 147/87 SpO2: [90 %-94 %] 94 % O2 Device: Nasal cannula O2 Flow Rate (L/min): [2 L/min] 2 L/min Intake/Output Summary (Last 24 hours) at 01/01/2025 1200 Last data filed at 01/01/2025 0400 Gross per 24 hour Intake -- Output 900 ml Net -900 ml Physical Exam Vitals and nursing note reviewed. Constitutional: Appearance: She is well-developed. Interventions: Nasal cannula in place. HENT: Head: Normocephalic and atraumatic. Nose: Nose normal. Eyes: Pupils: Pupils are equal, round, and reactive to light. Cardiovascular: Rate and Rhythm: Normal rate and regular rhythm. Heart sounds: Normal heart sounds. No murmur heard. Pulmonary: Effort: Pulmonary effort is normal. No respiratory distress. Breath sounds: Wheezing and rhonchi present. Abdominal: General: Bowel sounds are normal. Palpations: Abdomen is soft. Tenderness: There is no abdominal tenderness. Musculoskeletal: General: Normal range of motion. Cervical back: Neck supple. Lymphadenopathy: Cervical: No cervical adenopathy. Skin: General: Skin is warm and dry. Findings: No rash. Neurological: Mental Status: She is alert and oriented to person, place, and time. Cranial Nerves: No cranial nerve deficit. Code Status: Full Code Labs Recent Results (from the past 48 hours) CBC auto differential Collection Time: 12/30/24 3:26 PM Result Value Ref Range WBC 7.3 4 - 11 x10E9/L RBC Count 4.26 3.8 - 5.2 X10E12/L Hemoglobin 11.0 (L) 11.7 - 15.5 g/dL Hematocrit 35.3 35 - 47 % MCV 83 80 - 100 fL MCH 25.9 (L) 27 - 34 pg MCHC 31.2 (L) 32 - 36 g/dL RDW 23.8 (H) 11.5 - 15 % Platelet Count 276 150 - 450 X10E9/L MPV 7.2 7 - 12 fL Neutrophils % 88.8 % Lymphocytes % 5.4 % Monocytes % 3.3 % Eosinophils % 2.3 % Basophils % 0.2 % Neutrophils Absolute (A) 6.5 1.5 - 6.6 10*3/uL Lymphocytes Absolute 0.4 (L) 1.0 - 3.5 10*3/uL Monocytes Absolute 0.2 0.0 - 0.9 10*3/uL Eosinophils Absolute 0.2 0.0 - 0.4 10*3/uL Basophils Absolute 0.0 0.0 - 0.2 10*3/uL Anisocytosis 2+ Elliptocytes 1+ Differential Type AUTOMATED DIFFERENTIAL Comprehensive metabolic panel Collection Time: 12/30/24 3:26 PM Result Value Ref Range SODIUM 134 134 - 146 mmol/L POTASSIUM 2.8 (L) 3.5 - 5.0 mmol/L CHLORIDE 93 (L) 98 - 109 mmol/L CARBON DIOXIDE 29 22 - 32 mmol/L ANION GAP 12 5 - 15 mmol/L BLOOD UREA NITROGEN 17 5 - 27 mg/dL CREATININE 0.87 0.40 - 1.00 mg/dL GLUCOSE 216 (H) 65 - 99 mg/dL CALCIUM 8.2 (L) 8.5 - 10.5 mg/dL TOTAL PROTEIN 6.3 6.0 - 8.0 g/dL ALBUMIN 3.4 3.2 - 5.3 g/dL ALKALINE PHOSPHATASE 87 39 - 130 U/L AST 18 <=41 U/L ALT 14 <=31 U/L BILIRUBIN,TOTAL 0.9 0.3 - 1.2 mg/dL EGFR Non-Race Dependent 74 >=60 ml/min/1.73sq.m B-type natriuretic peptide Collection Time: 12/30/24 3:26 PM Result Value Ref Range BNP 248 (H) <=100 pg/mL Protime & INR Collection Time: 12/30/24 3:26 PM Result Value Ref Range PROTIME 22.2 (H) 9.8 - 13.2 sec INR 2.0 (H) 0.9 - 1.2 APTT Collection Time: 12/30/24 3:26 PM Result Value Ref Range APTT 32 26 - 37 sec D-Dimer Collection Time: 12/30/24 3:26 PM Result Value Ref Range D DIMER 514 (H) 1 - 255 ng/mL Magnesium Collection Time: 12/30/24 3:26 PM Result Value Ref Range MAGNESIUM 1.9 1.8 - 2.6 mg/dL Troponin I, High Sensitivity Collection Time: 12/30/24 3:26 PM Narrative The following orders were created for panel order Troponin I, High Sensitivity. Procedure Abnormality Status --------- ------ Troponin I, High Sensiti...[[id number]] Normal Final result Troponin I, High Sensiti...[[id number]] Normal Final result Please view results for these tests on the individual orders. Troponin I, High Sensitivity 0 Hour Collection Time: 12/30/24 3:26 PM Result Value Ref Range TROPONIN I, HIGH SENSITIVITY 6 <16 ng/L Troponin I, High Sensitivity 1 Hour Collection Time: 12/30/24 4:37 PM Result Value Ref Range TROPONIN I, HIGH SENSITIVITY 6 <16 ng/L Extra Urine Collection Time: 12/30/24 5:08 PM Specimen: Urine, Clean Catch Midstream Result Value Ref Range Extra Tube Auto Resulted Extra Urine Culture Collection Time: 12/30/24 5:08 PM Specimen: Urine, Clean Catch Midstream Result Value Ref Range Extra Tube Auto Resulted Extra Urine [place] Collection Time: 12/30/24 5:08 PM Specimen: Urine, Clean Catch Midstream Result Value Ref Range Extra Tube Auto Resulted POCT Nursing Urine Macroscopic UA Collection Time: 12/30/24 5:08 PM Result Value Ref Range POC Urine Specific [place] 1.010 1.010, 1.015, 1.020, 1.025 POC Urine Leukocyte Esterase Negative Negative POC Urine Nitrite Positive (A) Negative POC Urine pH 7.0 5.0, 6.0, 6.5, 7.0, 7.5, 8.0, 8.5, 5.5 POC Urine Protein Negative Negative POC Urine Glucose Negative Negative POC Urine Ketones Negative Negative POC Urine Urobilinogen 0.2 E.U./dL POC Urine Bilirubin Negative Negative POC Urine Blood/HGB Negative Negative Bedside Glucose *Place/Obtain serum glucose if >500 per glucometer. Collection Time: 12/30/24 9:38 PM Result Value Ref Range Bedside Glucose (POC) 198 (H) 65 - 99 mg/dL Comprehensive metabolic panel Collection Time: 12/31/24 4:48 AM Result Value Ref Range SODIUM 138 134 - 146 mmol/L POTASSIUM 2.8 (L) 3.5 - 5.0 mmol/L CHLORIDE 96 (L) 98 - 109 mmol/L CARBON DIOXIDE 29 22 - 32 mmol/L ANION GAP 13 5 - 15 mmol/L BLOOD UREA NITROGEN 13 5 - 27 mg/dL CREATININE 0.65 0.40 - 1.00 mg/dL GLUCOSE 182 (H) 65 - 99 mg/dL CALCIUM 8.1 (L) 8.5 - 10.5 mg/dL TOTAL PROTEIN 5.9 (L) 6.0 - 8.0 g/dL ALBUMIN 3.1 (L) 3.2 - 5.3 g/dL ALKALINE PHOSPHATASE 81 39 - 130 U/L AST 13 <=41 U/L ALT 12 <=31 U/L BILIRUBIN,TOTAL 0.8 0.3 - 1.2 mg/dL EGFR Non-Race Dependent >90 >=60 ml/min/1.73sq.m Magnesium Collection Time: 12/31/24 4:48 AM Result Value Ref Range MAGNESIUM 2.0 1.8 - 2.6 mg/dL CBC auto differential Collection Time: 12/31/24 4:48 AM Result Value Ref Range WBC 5.0 4 - 11 x10E9/L RBC Count 4.08 3.8 - 5.2 X10E12/L Hemoglobin 10.6 (L) 11.7 - 15.5 g/dL Hematocrit 33.6 (L) 35 - 47 % MCV 83 80 - 100 fL MCH 25.9 (L) 27 - 34 pg MCHC 31.4 (L) 32 - 36 g/dL RDW 23.3 (H) 11.5 - 15 % Platelet Count 282 150 - 450 X10E9/L MPV 7.3 7 - 12 fL Neutrophils % 89.4 % Lymphocytes % 9.2 % Monocytes % 0.8 % Eosinophils % 0.2 % Basophils % 0.4 % Neutrophils Absolute (A) 4.5 1.5 - 6.6 10*3/uL Lymphocytes Absolute 0.5 (L) 1.0 - 3.5 10*3/uL Monocytes Absolute 0.0 0.0 - 0.9 10*3/uL Eosinophils Absolute 0.0 0.0 - 0.4 10*3/uL Basophils Absolute 0.0 0.0 - 0.2 10*3/uL Anisocytosis 2+ Hypochromia 2+ RBC Morphology Reviewed Differential Type AUTOMATED DIFFERENTIAL Bedside Glucose *Place/Obtain serum glucose if >500 per glucometer. Collection Time: 12/31/24 11:31 AM Result Value Ref Range Bedside Glucose (POC) 321 (H) 65 - 99 mg/dL Potassium Collection Time: 12/31/24 12:04 PM Result Value Ref Range POTASSIUM 3.1 (L) 3.5 - 5.0 mmol/L Bedside Glucose *Place/Obtain serum glucose if >500 per glucometer. Collection Time: 12/31/24 4:41 PM Result Value Ref Range Bedside Glucose (POC) 242 (H) 65 - 99 mg/dL Potassium Collection Time: 12/31/24 8:34 PM Result Value Ref Range POTASSIUM 3.3 (L) 3.5 - 5.0 mmol/L Bedside Glucose *Place/Obtain serum glucose if >500 per glucometer. Collection Time: 12/31/24 9:06 PM Result Value Ref Range Bedside Glucose (POC) 189 (H) 65 - 99 mg/dL Comprehensive metabolic panel Collection Time: 01/01/25 5:37 AM Result Value Ref Range SODIUM 141 134 - 146 mmol/L POTASSIUM 3.5 3.5 - 5.0 mmol/L CHLORIDE 97 (L) 98 - 109 mmol/L CARBON DIOXIDE 32 22 - 32 mmol/L ANION GAP 12 5 - 15 mmol/L BLOOD UREA NITROGEN 17 5 - 27 mg/dL CREATININE 0.70 0.40 - 1.00 mg/dL GLUCOSE 194 (H) 65 - 99 mg/dL CALCIUM 8.8 8.5 - 10.5 mg/dL TOTAL PROTEIN 6.4 6.0 - 8.0 g/dL ALBUMIN 3.3 3.2 - 5.3 g/dL ALKALINE PHOSPHATASE 78 39 - 130 U/L AST 16 <=41 U/L ALT 12 <=31 U/L BILIRUBIN,TOTAL 0.8 0.3 - 1.2 mg/dL EGFR Non-Race Dependent >90 >=60 ml/min/1.73sq.m Magnesium Collection Time: 01/01/25 5:37 AM Result Value Ref Range MAGNESIUM 2.1 1.8 - 2.6 mg/dL CBC auto differential Collection Time: 01/01/25 5:37 AM Result Value Ref Range WBC 10.3 4 - 11 x10E9/L RBC Count 4.52 3.8 - 5.2 X10E12/L Hemoglobin 11.7 11.7 - 15.5 g/dL Hematocrit 37.2 35 - 47 % MCV 82 80 - 100 fL MCH 25.8 (L) 27 - 34 pg MCHC 31.3 (L) 32 - 36 g/dL RDW 24.1 (H) 11.5 - 15 % Platelet Count 305 150 - 450 X10E9/L MPV 7.3 7 - 12 fL Neutrophils % 94.0 % Lymphocytes % 3.0 % Monocytes % 2.7 % Eosinophils % 0.0 % Basophils % 0.3 % Neutrophils Absolute (A) 9.7 (H) 1.5 - 6.6 10*3/uL Lymphocytes Absolute 0.3 (L) 1.0 - 3.5 10*3/uL Monocytes Absolute 0.3 0.0 - 0.9 10*3/uL Eosinophils Absolute 0.0 0.0 - 0.4 10*3/uL Basophils Absolute 0.0 0.0 - 0.2 10*3/uL Anisocytosis 2+ RBC Fragments 1+ Elliptocytes 1+ Differential Type AUTOMATED DIFFERENTIAL Extra Tubes Collection Time: 01/01/25 5:37 AM Narrative The following orders were created for panel order Extra Tubes. Procedure Abnormality Status --------- ------ Light Blue Top[[id number]] Final result Please view results for these tests on the individual orders. Light Blue Top Collection Time: 01/01/25 5:37 AM Result Value Ref Range Extra Tube Auto Resulted Bedside Glucose *Place/Obtain serum glucose if >500 per glucometer. Collection Time: 01/01/25 7:26 AM Result Value Ref Range Bedside Glucose (POC) 199 (H) 65 - 99 mg/dL Bedside Glucose *Place/Obtain serum glucose if >500 per glucometer. Collection Time: 01/01/25 11:32 AM Result Value Ref Range Bedside Glucose (POC) 251 (H) 65 - 99 mg/dL Radiology CT angiogram chest Result Date: 12/30/2024 Narrative: CT CTA CHEST CLINICAL INFORMATION: elevated dimer, hypoxia COMPARISON: 12/30/2024, 07/25/2024 PROCEDURE: Routine CT pulmonary angiogram obtained after the uncomplicated intravenous administration of contrast. 3-D maximum intensity projection coronal and sagittal reformatted images generated and reviewed. All CT scans at this facility use dose modulation, iterative reconstruction, and/or weight based dosing when appropriate to reduce radiation dose to as low as reasonably achievable. FINDINGS: Interlobular septal thickening, fibrosis. Some areas of peripheral scarring noted. Chronic co nsolidation in the lingula. No effusions. Prominent atherosclerotic calcifications in the aorta. Severe qawalangin coronary artery calcifications. There is prominence of the pulmonary arteries, which could relate to pulmonary artery hypertension with mild cardiomegaly and trace pericardial effusion. There is no visualized acute pulmonary embolism. Streak artifact degrades assessment of the segmental and subsegmental vessels. Right renal atrophy. Mildly prominent lymph nodes in the mediastinum with enlarged precarinal and right anterior tracheal lymph nodes similar to prior examination. Thyroid calcification present. Some edema in the soft tissues. Degenerative changes are present. Old rib deform ities. IMPRESSION: * No evidence of acute pulmonary embolism, findings concerning for pulmonary artery hypertension. * Septal thickening, findings could relate to mild vascular congestion. Scarring and minimal consolidation. * Cardiomegaly. * Unchanged mediastinal and hilar adenopathy. Attention onfollow- up studies recommended. Finalized by Artur Rosen MD on 12/30/2024 5:07 PM X-ray chest 1 view Result Date: 12/30/2024 Narrative: Single view chest History: hypoxia. Chest pain. Comparison: CT scan 07/25/2024. Findings:Single portable view of the chest. Cardiac silhouette is mildly enlarged. There is perihilar pulmonary vascular congestion. Calcification at the aortic knob. Mild interstitial edema. Retrocardiac left basilar opacity. No pleural effusion or pneumothorax. Impression: 1. Retrocardiac left basilar opacity, possibly atelectasis versus pneumonia in the appropriate clinical scenario. 2. Mild perihilar pulmonary vascular congestion with interstitial edema. 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 Right: Lower extremity deep veins are compressible with spontaneous pulsatile spectral Doppler waveforms; superficial veins are compressible without intraluminal content. Left: Non-visualized, absent or surgically harvested Great saphenous superficial vein in the thigh. Lower extremity deep veins are compressible with spontaneous pulsatile spectral Doppler waveforms; remaining superficial veins are compressible without intraluminal content. General: In-patient, bedside examination. Conclusions: RIGHT:NO EVIDENCE of deep or superficial vein thrombosis of the lower extremity. LEFT:The great saphenous vein is not visualized or surgically absent. NO EVIDENCE of deep or superficial veinthrombosis of the lower extremity. CT abdomen and pelvis with contrast Result Date: 12/13/2024 Narrative: CLINICAL INFORMATION: diffuse abd pain, on abx. COMPARISON: 07/25/2024 TECHNIQUE: Contrast-enhanced CT abdomen/pelvis. FINDINGS: LOWER CHEST: No included pericardial or pleural effusion. LIVER AND BILIARY: Cholecystectomy without suspicious focal lesion or overt biliary dilatation. PANCREAS: Within normal limits. SPLEEN: Within normal limits. ADRENALS: Unchanged 1.6 cm right adrenal nodule. Mild thickening left adrenal gland.. KIDNEYS, URETERS, AND BLADDER: Atrophic right kidney. Excreted contrast limits sensitivity for small stones. No hydronephrosis. Normal bladder. GI TRACT AND PERITONEUM: No bowel obstruction. No free fluid or free air. Normal appendix. Ventral hernia defect measures 6.5 cm; hernia sac contains nondilated small and large bowel. VASCULATURE: Prior aortobiiliac bypass. Heavy SMA calcification. Patent portal vein. Apparent left SFA graft appears chronically occluded; correlate with left lower extremity neurovascular exam. LYMPH NODES: Within normal limits. R EPRODUCTIVE ORGANS: No adnexal asymmetry. MUSCULOSKELETAL: Chronic fracture right acetabular roof with robust thickening of the right hip soft tissues. Chronic fractures of the right 11th rib, bilateral L1 and L2 pedicles with similar L1-2 retrolisthesis, L2-3 anterolisthesis Large posterior disc os teophyte at L1-2, similar to prior IMPRESSION: 1. No definitive acute abdominopelvic abnormality. 2. Extensive presumed chronic/nonemergent findings as above All CT scans at this facility use dose modulation, iterative reconstruction, and/or weight based dosing when appropriate to reduce radiation dose to as low as reasonably achievable. Finalized by Nia Hansen MD on 12/13/2024 2:45 PM MR foot left with and without contrast Result Date: 12/07/2024 Narrative: Wound left great toe and second toe and heel. Assess for osteomyelitis Comparison July 15, 2024 PROCEDURE: Multiplanar multisequence images performed through left foot FINDINGS: There is a wound at the heel with edema suggesting cellulitis but no osteomyelitis in that region There is a wound at the great toe and second toe and there is bone edema and pathologic enhancement involving the phalanges of the great toe and second digit consistent with osteomyelitis No other sites of osteomyelitis identified Examination is compromised by motion Grossly no fracture Tibial and fibular sesamoids intact IMPRESSION: Findings consistent with osteomyelitis versus second digit There is a woundat the calcaneus without definite osteomyelitis at this time Finalized by Hernandez Gutiérrez MD on 12/07/2024 11:42 AM X-ray hips bilateral with or without pelvis 5+ views Result Date: 12/05/2024 Narrative: XR HIPS BILAT W OR WO PELVIS 5+ VWS HISTORY: Chronic bilateral hip pain. COMPARISON: None. IMPRESSION: 1. Severe right-sided hip arthritis with chronic remodeling, coxa profunda, subchondral sclerosis and cystic change. 2. Osteopenia. No visible acute fracture or dislocation. Finalized by Jt Mcwilliams MD on 12/05/2024 4:41 PM X-ray foot left minimum 3 views Result Date: 12/05/2024 Narrative: History: r/o osteomylitis Exam/Technique: AP, lateral and oblique. Comparison: 07/13/2024.. Findings: Osteopenia with mild soft tissue swelling. Soft tissue air along the distal findings ofthe first digit without any osseous destruction. Ulceration overlying the second toe with likely erosion of the distal phalanx concerning for osteomyelitis. The remainder of the toes demonstrate no erosive changes. IMPRESSION: Findings raising concern for osteomyelitis of the tuft of the second toesoft tissue air and ulceration overlying the tuft of the first and second toes predominantly. Workst ation:[id number] Finalized by Josiah Ken MD on 12/05/2024 2:38 PM DISCHARGE INSTRUCTION Disposition: nursing home facility Condition: Stable Activity: activity as tolerated Diet: Adult diet Regular Texture; Consistent Carb 255 grams (2000 kcal); No Added Salt (3-4 gm Sodium); Fluid Restriction 2000 mL Adult diet Follow up: Osmar Rodriguez MD within 7-14 days. Labs/Imaging/Pathology: Pending Labs Order Current Status POCT Nursing Urine Macroscopic UA Collected (12/30/24 4125) Discharge Medications: Medication List START taking these medications Instructions Last Dose Given Next Dose Due ceFUROxime 250 mg tablet Commonly known as: CEFTIN Take 2 tablets (500 mg total) by mouth in the morning and 2 tablets (500 mg total) before bedtime. Do all this for 3 days. doxycycline 100 mg capsule Commonly known as: VIBRAMYCIN Take 1 capsule (100 mg total) by mouth in the morning and 1 capsule (100 mg total) before bedtime. Do all this for 3 days. guaiFENesin 600 mg tablet extended release 12hr Commonly known as: MUCINEX Take 1 tablet (600 mg total) by mouth every 12 (twelve) hours for 3 days. CONTINUE taking these medications Instructions Last Dose Given Next Dose Due acetaminophen 325 mg tablet Commonly known as: TYLENOL Take 2 tablets (650 mg total) by mouth every 6 (six) hours as needed for fever. * albuterol 2.5 mg /3 mL (0.083 %) nebulizer solution Commonly known as: PROVENTIL,VENTOLIN Inhale 3 mL (2.5 mg total) by nebulization every 2 (two) hours as needed for wheezing. Q2hr prn vianeb shortness of breath * albuterol 90 mcg/actuation inhaler Commonly known as: PROVENTIL HFA;VENTOLIN HFA Take 2 puffs by mouth as needed in the morning and 2 puffs as needed at noon and 2 puffs as needed in the evening and 2 puffs as needed before bedtime. * albuterol 2.5 mg /3 mL (0.083 %) nebulizer solution Commonly known as: PROVENTIL,VENTOLIN Inhale 3 mL (2.5 mg total) by nebulization every 6 (six) hours as needed for wheezing. amino acids-protein hydrolys 17-100 gram-kcal/30 mL liquid Take 30 mL by mouth in the morning. Pro-stat oral lqiuid ( amino vesyv-[id number]-hcgtufdapbo) -give 30 ml po in the morning for wound care. amLODIPine 10 mg tablet Commonly known as: NORVASC Take 1 tablet (10 mg total) by mouth in the morning. Indications: high blood pressure. aspirin 81 mg chewable tablet Chew 1 tablet (81 mg total) and swallow in the morning. benzonatate 200 mg capsule Commonly known as: TESSALON PERLES Take 1 capsule (200 mg total) by mouth as needed in the morning and 1 capsule (200 mg total) as needed at noon and 1 capsule (200 mg total) as needed in the evening for cough. budesonide-formoteroL 160-4.5 mcg/actuation inhaler Commonly known as: SYMBICORT Inhale 2 puffs in the morning and 2 puffs before bedtime. carvediloL 12.5 mg tablet Commonly known as: COREG Take 1 tablet (12.5 mg total) by mouth in the morning and 1 tablet (12.5 mg total) in the evening. Take with meals. cholecalciferol (vitamin D3) 2,000 units tablet Take by mouth in the morning. diphenhydrAMINE 25 mg capsule Commonly known as: BENADRYL Take 1 capsule (25 mg total) by mouth every 6 (six) hours as needed for itching. docusate sodium 100 mg capsule Commonly known as: COLACE Take 1 capsule (100 mg total) by mouth as needed in the morning and 1 capsule (100 mg total) as needed in the evening for constipation. ELIQUIS 5 mg tablet Generic drug: apixaban Take 1 tablet (5 mg total) by mouth in the morning and 1 tablet (5 mg total) before bedtime. ferrous sulfate 325 (65 FE) MG tablet Take 1 tablet (325 mg total) by mouth in the morning. fluticasone propion-salmeteroL 250-50 mcg/dose DISKUS Commonly known as: ADVAIR Inhale 1 puff in the morning and 1 puff before bedtime. furosemide 20 mg tablet Commonly known as: LASIX Take 1 tablet (20 mg total) by mouth daily. ipratropium-albuteroL 0.5 mg-3 mg(2.5 mg base)/3 mL nebulizer Commonly known as: DUONEB Inhale 3 mL by nebulization 3 (three) times a day as needed for wheezing or shortness of breath. 3 mL nebulization every 8 hours x7 days, then every 8 hours as needed for cough, shortness of breath, and or wheezing levoFLOXacin 750 mg tablet Commonly known as: LEVAQUIN Take 1 tablet (750 mg total) by mouth in the morning for 28 days. levothyroxine 150 MCG tablet Commonly known as: SYNTHROID, LEVOTHROID Take 1 tablet (150 mcg total) by mouth in the morning. losartan 100 mg tablet Commonly known as: COZAAR Take 1 tablet (100 mg total) by mouth in the morning. melatonin 10 mg tablet Take 1 tablet by mouth once daily at bedtime. methocarbamoL 750 mg tablet Commonly known as: ROBAXIN Take 1 tablet (750 mg total) by mouth in the morning and 1 tablet (750 mg total) at noon and 1 tablet (750 mg total) in the evening and 1 tablet (750 mg total) before bedtime. Indications: muscle spasm. metoprolol succinate XL 25 mg 24 hr tablet Commonly known as: TOPROL XL Take 1 tablet (25 mg total) by mouth in the morning. naloxone 4 mg/actuation spray,non-aerosol nasal spray Commonly known as: NARCAN Administer 1 spray (4 mg total) into alternating nostrils as needed for opioid reversal. nitroglycerin 0.4 MG SL tablet Commonly known as: NITROSTAT Place 1 tablet (0.4 mg total) under the tongue every 5 (five) minutes as needed for chest pain. ondansetron ODT 4 mg disintegrating tablet Commonly known as: ZOFRAN ODT Dissolve 1 tablet (4 mg total) on tongue every 8 (eight) hours as needed for nausea or vomiting. oxyCODONE-acetaminophen 5-325 mg per tablet Commonly known as: PERCOCET Take 1 tablet by mouth every 6 (six) hours as needed for pain. Max Daily Amount: 4 tablets pantoprazole 40 mg EC tablet Commonly known as: PROTONIX Take 1 tablet (40 mg total) by mouth in the morning and 1 tablet (40 mg total) in the evening. Takebefore meals. potassium chloride 20 mEq packet Commonly known as: KLOR-CON Take 1 packet (20 mEq total) by mouth in the morning and 1 packet (20 mEq total) before bedtime. pravastatin 40 mg tablet Commonly known as: PRAVACHOL Take 1 tablet (40 mg total) by mouth in the morning. predniSONE 10 mg tablet Commonly known as: DELTASONE Take 1 tablet (10 mg total) by mouth in the morning. QUEtiapine 25 mg tablet Commonly known as: SEROquel Take 1 tablet (25 mg total) by mouth nightly. For anxiety sucralfate 100 mg/mL suspension Commonly known as: CARAFATE Take 10 mL (1,000 mg total) by mouth 4 (four) times a day with meals and nightly. TRUE METRIX GLUCOSE TEST STRIP strip Generic drug: blood sugar diagnostic 1 strip by other route as needed for high blood sugar. * venlafaxine XR 150 mg 24 hr capsule Commonly known as: EFFEXOR-XR Take 1 capsule (150 mg total) by mouth in the morning. * venlafaxine XR 75 mg 24 hr capsule Commonly known as: EFFEXOR XR Take 1 capsule (75 mg total) by mouth in the morning. * This list has 5 medication(s) that are the same as other medications prescribed for you. Read thedirections carefully, and ask your doctor or other care provider to review them with you. Where to Get Your Medications Information about where to get these medications is not yet available Ask your nurse or doctor about these medications ceFUROxime 250 mg tablet doxycycline 100 mg capsule guaiFENesin 600 mg tablet extended release 12hr >30 minutes were spent on discharging this patient. YOVANY Tang 01/01/2025 12:00 PM [facility] 7AM-7PM & 7PM-7AM: EpicChat or page through On-Call Finder. Physician Attestation: I have reviewed the above note authored by the Advance Practice Provider (DINESH) including history, review of systems, physical examination, medical decision making and agree with the assessment & plan. I have personally performed a face to face diagnostic evaluation on this patient. I have reviewed all laboratory findings and imaging reports/films. I have independently evaluated the patient and repeated sims portions of the physical exam. I agree with the DINESH plan as above, unless otherwise noted. NAT REYNOLDS MD documented in this encounterDayton VA Medical CenterMedeAnalytics [facility] [id number] Nurse Note* Corrine Mcintosh RN - 01/01/2025 12:04 AM EDT Ladle Operator in to talk to patient about potassium replacement and change dressings. Patient stated that she did not want any more potassium tonight and stated that she would take more in the morning if needed. Patient stated that she only wanted the left dressing changed tonight and not both. Patient also talked to about nasal swab for flu/covid and patient refused to have that done. Ladle Operator explained to patient why all were ordered and patient continues to decline to have them done. [facility]10-02-2025 Plan of care note* Plan of Care - Corrine Mcintosh RN - 12/31/2024 8:47 PM EDT Problem: Multi-Drug Resistant Organism / Rule-Out Infection Prevention Goal: Prevent transmission of infection Description: INTERVENTIONS 1. Place patient in private room or in room with patient with same disease 2. Discard single-use items 3. Clean reusable equipment between patients 4. Wear gloves for direct and indirect contact with patient or contaminants 5. Change gloves between tasks and procedures 6. Wash hands before and after caring for each patient 7. Wear appropriate personal protective equipment in relation to the indicated isolation type 8. Place appropriate isolation signage on patient's door 9. Provide patient/ patient sales and marketing representative with isolation education. Outcome: Progressing Note: Evaluation of progress towards goal: Patient remains in isolation. Problem: Potential for Compromised Skin Integrity Goal: Skin integrity is maintained or improved Description: Patient's goal is: INTERVENTIONS 1. Perform initial skin assessment on admission and as needed 2. Turn patient every 2 hours and PRN 3. Relieve pressure to bony prominences 4. Avoid shearing 5. Keep skin clean and dry 6. Alternate a full bath with partial baths for elderly 7. Apply lotion/moisturizer on skin 8. Monitor patient's hygiene practices 9. Float heels 10. Collaborate with interdisciplinary team and initiate plans and interventions as needed Outcome: Progressing Note: Evaluation of progress towards goal: No new skin breakdown noted/assessed q shift/brief checked and felicity care given when incontinent/barrier cream applied as needed/ Skin care given as needed/ Goal: Patient's nutritional intake is adequate Description: Patient's goal is: INTERVENTIONS 1. Assess and monitor food intake and supplements, patient food preferences, nausea, vomiting, labs, oral cavity (gums, teeth, tongue, mucosa), proper denture fit, and cultural beliefs 2. Monitor for signs of hypoglycemia and hyperglycemia 3. Collaborate with interdisciplinary team and initiate plan and interventions as ordered 4. Monitor patient's weight 5. Assist patient with meals/food selection 6. Assist patient with eating 7. Allow adequate time for meals 8. Provide pleasant environment during mealtime 9. Increase social contact during mealtimes 10. Plan activities to conserve energy 11. Encourage/perform oral hygiene as appropriate 12. Encourage patient to take dietary supplement as ordered 13. Collaborate with clinical hospital supervisor 14. Include patient/ patient's sales and marketing representative in decisions related to nutrition Outcome: Progressing Note: Evaluation of progress towards goal: Patient tolerating diet as ordered Problem: Urinary Incontinence Goal: Perineal skin integrity is maintained or improved Description: INTERVENTIONS 1. Assess genitourinary system, perineal skin, labs (urinalysis), and history of incontinence to include past management, aggravating, and alleviating factors 2. Keep skin clean and dry 3. Apply skin protectant 4. Develop skin care regimen 5. Provide privacy when changing patients incontinence device to maintain their dignity 6. Consider placing an indwelling catheter 7. Collaborate with interdisciplinary team and initiate plans and interventions as needed Outcome: Progressing Note: Evaluation of progress towards goal: Felicity care done PRN. Problem: Pain Goal: Patient goal is pain score less than 4, able to rest, and participant in treatment plan as appropriate Description: INTERVENTIONS: 1. Encourage patient or legal sales and marketing representative to report early pain and ask for pain medicine when needed 2. Assess pain using appropriate pain scale and include the scale used when documenting 3. Administer analgesics based on type and severity of pain and evaluate response within appropriate time frame 4. Implement non-pharmacological measures as appropriate and evaluate response 5. Consider cultural and social influences on pain and pain management 6. Notify LIP if interventions ineffective or patient reports new pain 7. Monitor vital signs including pulse ox, end-tidal CO2 based on pain intervention 8. Reassess pain per policy 9. Teach patient or legal sales and marketing representative interventions for comforting Outcome: Progressing Note: Evaluation of progress towards goal: Patient has PO percocet PRN Problem: Safety Goal: Patient will be injury free during hospitalization Description: INTERVENTIONS: 1. Assess patient's risk for falls and implement fall prevention plan of care per policy 2. Provide and maintain a safe environment 3. Proper use of double Identifiers 4. Medication administration using the 5 rights 5. Hand hygiene 6. Specimens are labeled at the bedside 7. Instruct patient/ patient sales and marketing representative about use of safety devices 8. Include patient/ patient sales and marketing representative in decisions related to safety Outcome: Progressing Note: Evaluation of progress towards goal: Patient safety maintained when ambulating/gait belt and safety equipment used as needed, Dual Identifiers used with all med passing and specimen collection,hand hygiene done prior to and after patient care, family and patient hand hygiene encouraged. Problem: Infection Goal: Absence of infection during hospitalization Description: INTERVENTIONS 1. Assess and monitor for signs and symptoms of infection. 2. Monitor lab/diagnostic results. 3. Monitor all insertion sites i.e., indwelling lines, tubes and drains. 4. Monitor endotracheal (as able) and nasal secretions for changes in amount and color. 5. Administer medications as ordered. 6. Instruct and encourage patient and family to use good hand hygiene technique. 7. Identify and instruct patient/patient sales and marketing representative in use of appropriate isolation precautionsfor identified infection/symptoms. 8. Provide and discuss with patient/patient sales and marketing representative on educational MDRO sheet. 9. Encourage and monitor nutritional status daily and consult hospital supervisor if indicated. 10. Implement neutropenic guidelines as needed. Outcome: Progressing Note: Evaluation of progress towards goal: IV antibiotics continues for infection. 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 Complete learning assessment and assess knowledge base 2. Provide teaching at level of understanding 3. Provide teaching via preferred learning method(s) Outcome: Progressing Note: Evaluation of progress towards goal: All medications reviewed prior to being given including side affect/dose/frequency/verbalized understanding Problem: Discharge Planning Goal: Discharge to post-acute care, other facility, or home with appropriate resources Description: Patient's goal is: INTERVENTIONS 1. Conduct assessment to determine patient/family and health care team treatment goals, and need for post-acute services based on payer coverage, community resources, and patient preferences, and barriers to discharge 2. Coordinate with Social work, Care Navigation, and Utilization Review to arrange appropriate level of services according to patient's needs based on patient preference and payer coverage in collaboration with the physician and health care team 3. Address psychosocial, clinical, and financial barriers to discharge as identified in assessment in conjunction with the patient/family and health care team 4. Consult appropriate ancillary services (i.e.. PT/OT/ST, etc) as needed 5. Communicate with and update the patient/family, physician, and health care team regarding progress on the discharge plan 6. Identify discharge learning needs (meds, wound care, etc). 7. Arrange for needed discharge transportation as appropriate Outcome: Progressing Note: Evaluation of progress towards goal: Patient plans on going to [place] upon discharge. [facility]10-02-2025 Progress note* Discharge Planning Note - Jodee Cook RN - 12/31/2024 12:08 PM EDT 12/31/24 [id number] Patient Information Initial Pre-Hospitalization Assessment Completed? In-Progress In-Progress Reason: Attempted assessment: patient unable to participate/Contacts unavailable (patient sleeping, unable to wake up. RN notified. CN called patient's son, no answer. Unable to leave voicemail. CN called [facility], no answer. Voicemail left.) Support System Family Members Discharge Planning Type of Residence assisted Care Facility Name [facility] [address] [place] [address] Home Care Services No Income Information Income Information Retired/Pension/Social Security Services Requested Patient expects to be discharged to: SNF Discharge Disposition SNF SNF Name [facility] [address] [place] [address] DISCHARGE PLANNING NOTE CN attempted to complete assessment w/ paitent at bedside. Patient sleeping deeply, unable to arouse. RN notified. CN called patient's son, no answer. Unable to leave voicemail. CN called [place], no answer. Voicemail left. Plan: Return to [place]. Facility called, voicemail left. Will clarify patient's level of care. [facility] [address] [place] [address] - Jodee Cook RN 12/31/24 12:12 PM Update: Ladle Operator spoke w/ [facility]. Patient is a long-term resident at facility and can return once medically ready. - Jodee Cook RN 12/31/24 2:21 PM [facility]10-02-2025 Plan of care note* Plan of Care - Juan Carlos Moss RPH - 12/31/2024 11:00 AM EDT Problem: Medication Description: If medication is necessary, use low-risk medication that does not interfere with what matters to the older adult patient, mobility, or mentation across settings of care. Goal: Patient will be screened for high-risk medications once per stay Description: Interventions: 1. Pharmacist to perform medication review to screen for high-risk medications 2. Pharmacist to identify high-risk medications in the Plan of Care note 3. Pharmacist to make recommendations for follow-up in the Plan of Care note, if warranted 12/31/2024 1100 by TALA Rangel Outcome: Completed Note: Medications individually and in combination may interfere with What Matters, Mentation, and safe Mobility because of the increased risk of confusion, delirium, unsteadiness and falls. Profile review indicates this patients has active orders for Seroquel and Percocet. Chart review also shows no change in renal function. 12/31/2024 1059 by TALA Rangel Reactivated 12/31/2024 1056 by TALA Rangel Outcome: Completed [facility]10-02-2025 History and physical note* Nat Reynolds MD - 12/31/2024 9:00 AM EDT Images from the original note were not included. [facility] INTERNAL MEDICINE [facility] [address] [facility] [id number] Hospital Medicine History & Physical Patient: Jonatan Olivarez Date of : 1960 Room: [facility] PCP: Osmar Rodriguez MD Admission date: 12/30/2024 3:02 PM Encounter date: 12/31/24 Hospital Day: 2 SUBJECTIVE Jonatan Olivarez is a 64 y.o. female who presents with hypoxia. It is noted that patient was 72% on 2 L upon arrival from [place]. Per staff her readings had been from 48-70% over the last day. Patient denies any shortness of breath or chest pain. She wears 2 L nasal cannula at baseline. Patient was bumped up to 6 L when they arrived she was given a DuoNeb and improved. Of heart disease, CAD, COPD, diabetes, hypertension, hypothyroidism. Patient is a current everyday smoker half pack a day for 40 years. Revealed left basilar opacity, possible atelectasis versus pneumonia, mild perihilar pulmonary vascular congestion with interstitial edema. CTA chest showing no evidence of pulmonary embolism, findings concerning for pulmonary artery hypertension, septal thickening could relate to mild vascular congestion, cardiomegaly, unchanged mediastinal and hilar adenopathy. Lab work remarkable for hemoglobin 11, INR 2, D-dimer 514, potassium 2.8, chloride 93, urinalysis positive for nitrates. Admitted for acute cystitis without hematuria. Allergies: Cyclobenzaprine, Ceclor [cefaclor], Codeine, Lexiscan [regadenoson], Nickel, Simvastatin, and Zithromax [azithromycin] Prior to Admission medications Medication Sig Start Date End Date Taking? Authorizing Provider albuterol (PROVENTIL,VENTOLIN) 2.5 mg /3 mL (0.083 %) nebulizer solution Inhale 3 mL (2.5 mg total)by nebulization every 6 (six) hours as needed for wheezing. 03/18/24 Yes Kellen Shah APRN-TRUST ADMINISTRATOR amino acids-protein hydrolys 17-100 gram-kcal/30 mL liquid Take 30 mL by mouth in the morning. Pro-stat oral lqiuid ( amino [id number]) -give 30 ml po in the morning for wound care. Yes Not In System Ref Prov amLODIPine (NORVASC) 10 mg tablet Take 1 tablet (10 mg total) by mouth in the morning. Indications:high blood pressure. Yes Not In System Ref Prov apixaban (ELIQUIS) 5 mg tablet Take 1 tablet (5 mg total) by mouth in the morning and 1 tablet (5 mg total) before bedtime. Yes Not In System Ref Prov aspirin 81 mg chewable tablet Chew 1 tablet (81 mg total) and swallow in the morning. 01/18/24 Yes Corie Muller APRN-TRUST ADMINISTRATOR benzonatate (TESSALON PERLES) 200 mg capsule Take 1 capsule (200 mg total) by mouth as needed in the morning and 1 capsule (200 mg total) as needed at noon and 1 capsule (200 mg total) as needed in the evening for cough. 04/06/24 Yes Not In System Ref Prov carvediloL (COREG) 12.5 mg tablet Take 1 tablet (12.5 mg total) by mouth in the morning and 1 tablet (12.5 mg total) in the evening. Take with meals. 02/06/24 Yes Not In System Ref Prov cholecalciferol, vitamin D3, 2,000 units tablet Take by mouth in the morning. Yes Not In System RefProv diphenhydrAMINE (BENADRYL) 25 mg capsule Take 1 capsule (25 mg total) by mouth every 6 (six) hours as needed for itching. 12/11/24 Yes Helio Giles APRN-TRUST ADMINISTRATOR docusate sodium (COLACE) 100 mg capsule Take 1 capsule (100 mg total) by mouth as needed in the morning and 1 capsule (100 mg total) as needed in the evening for constipation. 02/06/24 Yes Not In System Ref Prov ferrous sulfate 325 (65 FE) MG tablet Take 1 tablet (325 mg total) by mouth in the morning. 12/17/24Yes Alondra Amado APRN-TRUST ADMINISTRATOR furosemide (LASIX) 20 mg tablet Take 1 tablet (20 mg total) by mouth daily. 02/06/24 Yes Not In System Ref Prov ipratropium-albuteroL (DUONEB) 0.5 mg-3 mg(2.5 mg base)/3 mL nebulizer Inhale 3 mL by nebulization 3 (three) times a day as needed for wheezing or shortness of breath. 3 mL nebulization every 8 hoursx7 days, then every 8 hours as needed for cough, shortness of breath, and or wheezing Patient taking differently: Inhale 3 mL by nebulization as needed in the morning and 3 mL as neededat noon and 3 mL as needed in the evening for wheezing or shortness of breath. every 8 hours as needed for cough, shortness of breath, and or wheezing. 10/23/22 Yes Fredy Mcclain APRN-TRUST ADMINISTRATOR levoFLOXacin (LEVAQUIN) 750 mg tablet Take 1 tablet (750 mg total) by mouth in the morning for 28 days. 12/11/24 01/08/25 Yes Helio Giles APRN-FABIENNE levothyroxine (SYNTHROID, LEVOTHROID) 150 MCG tablet Take 1 tablet (150 mcg total) by mouth in the morning. Yes Not In System Ref Prov losartan (COZAAR) 100 mg tablet Take 1 tablet (100 mg total) by mouth in the morning. 09/06/22 Yes Sejal Perez APRN-FABIENNE melatonin 10 mg tablet Take 1 tablet by mouth once daily at bedtime. Yes Not In System Ref Prov methocarbamoL (ROBAXIN) 750 mg tablet Take 1 tablet (750 mg total) by mouth in the morning and 1 tablet (750 mg total) at noon and 1 tablet (750 mg total) in the evening and 1 tablet (750 mg total) before bedtime. Indications: muscle spasm. Yes Not In System Ref Prov metoprolol succinate XL (TOPROL XL) 25 mg 24 hr tablet Take 1 tablet (25 mg total) by mouth in the morning. 09/27/22 Yes YOVANY Cedeno nitroglycerin (NITROSTAT) 0.[address] 1 tablet (0.4 mg total) under the tongue every 5 (five) minutes as needed for chest pain. Yes Not In System Ref Prov ondansetron ODT (ZOFRAN ODT) 4 mg disintegrating tablet Dissolve 1 tablet (4 mg total) on tongue every 8 (eight) hours as needed for nausea or vomiting. 02/06/24 Yes Not In System Ref Prov oxyCODONE-acetaminophen (PERCOCET) 5-325 mg per tablet Take 1 tablet by mouth every 6 (six) hours as needed for pain. Max Daily Amount: 4 tablets Yes Not In System Ref Prov pantoprazole (PROTONIX) 40 mg EC tablet Take 1 tablet (40 mg total) by mouth in the morning and 1 tablet (40 mg total) in the evening. Take before meals. 01/17/24 Yes Corie Muller APRN-FABIENNE potassium chloride (KLOR-CON) 20 mEq packet Take 1 packet (20 mEq total) by mouth in the morning and 1 packet (20 mEq total) before bedtime. 02/06/24 Yes Not In System Ref Prov pravastatin (PRAVACHOL) 40 mg tablet Take 1 tablet (40 mg total) by mouth in the morning. Yes Not In System Ref Prov predniSONE (DELTASONE) 10 mg tablet Take 1 tablet (10 mg total) by mouth in the morning. Yes Not InSystem Ref Prov QUEtiapine (SEROquel) 25 mg tablet Take 1 tablet (25 mg total) by mouth nightly. For anxiety 03/29/24 Yes Not In System Ref Prov sucralfate (CARAFATE) 100 mg/mL suspension Take 10 mL (1,000 mg total) by mouth 4 (four) times a day with meals and nightly. Yes Not In System Ref Prov venlafaxine XR (EFFEXOR XR) 75 mg 24 hr capsule Take 1 capsule (75 mg total) by mouth in the morning. 02/06/24 Yes Not In System Ref Prov venlafaxine XR (EFFEXOR-XR) 150 mg 24 hr capsule Take 1 capsule (150 mg total) by mouth in the morning. 02/06/24 Yes Not In System Ref Prov acetaminophen (TYLENOL) 325 mg tablet Take 2 tablets (650 mg total) by mouth every 6 (six) hours asneeded for fever. Not In System Ref Prov albuterol (PROVENTIL HFA;VENTOLIN HFA) 90 mcg/actuation inhaler Take 2 puffs by mouth as needed in the morning and 2 puffs as needed at noon and 2 puffs as needed in the evening and 2 puffs as neededbefore bedtime. 02/06/24 Not In System Ref Prov albuterol (PROVENTIL,VENTOLIN) 2.5 mg /3 mL (0.083 %) nebulizer solution Inhale 3 mL (2.5 mg total)by nebulization every 2 (two) hours as needed for wheezing. Q2hr prn via neb shortness of breath Not In System Ref Prov blood sugar diagnostic (TRUE METRIX GLUCOSE TEST STRIP) strip 1 strip by other route as needed for high blood sugar. 07/16/24 Alondra Amado, HILDA-FABIENNE budesonide-formoteroL (SYMBICORT) 160-4.5 mcg/actuation inhaler Inhale 2 puffs in the morning and 2puffs before bedtime. 02/06/24 Not In System Ref Prov fluticasone propion-salmeteroL (ADVAIR) 250-50 mcg/dose DISKUS Inhale 1 puff in the morning and 1 puff before bedtime. Not In System Ref Prov naloxone (NARCAN) 4 mg/actuation spray,non-aerosol nasal spray Administer 1 spray (4 mg total) intoalternating nostrils as needed for opioid reversal. 12/17/24 Alondra Amado APRN-TRUST ADMINISTRATOR Code Status: Full Code Past Medical History: Patient has a past medical history of ASHD (arteriosclerotic heart disease), Atherosclerosis of both carotid arteries, CAD S/P percutaneous coronary angioplasty, Claudication in peripheral vascular disease, COPD (chronic obstructive pulmonary disease) ([facility]), Dental disease, Diabetes mellitus ([facility]), Diabetes mellitus type 2, controlled ([facility]), Disease of thyroid gland, Dizziness, Emphysema of lung ([facility]), Hypertension, Hypothyroidism, Lower GI bleed (01/09/2024), Stable angina, Ulcer, Ventral hernia, and Visual impairment. Past Surgical History: Patient has a past surgical history that includes Cholecystectomy; Femoral bypass (2009); Cardiac surgery (2000); Cardiac catheterization; Hysterectomy (2007); Vascular surgery (2007); Arterial bypass surgry (Left, 06/03/2017); Cardiac catheterization (N/A, 09/25/2022); Cardiac catheterization (N/A, ); Esophagogastroduodenoscopy (N/A, 01/10/2024); Esophagogastroduodenoscopy (N/A, 01/17/2024); Thrombectomy w/ embolectomy (Left, 04/17/2024); and Angiogram (Right, 04/18/2024). Family History: Patient's family history is not on file. Social History: Patient reports that she has been smoking cigarettes. She has a 20 pack-year smoking history. She has never used smokeless tobacco. She reports that she does not drink alcohol and does not use drugs. Review of Systems Constitutional: Negative for chills and fever. HENT: Negative for ear pain and sore throat. Eyes: Negative for pain and visual disturbance. Respiratory: Positive for cough and shortness of breath. Cardiovascular: Negative for chest pain and palpitations. Gastrointestinal: Negative for abdominal pain and vomiting. Genitourinary: Negative for dysuria and hematuria. Musculoskeletal: Negative for arthralgias and back pain. Skin: Negative for color change and rash. Neurological: Negative for seizures and syncope. All other systems reviewed and are negative. OBJECTIVE BP 156/67 Pulse 75 Temp 37.3 C (99.2 F) (Axillary) Resp 18 Ht 154.9 cm (5' 1 ) Wt 52.8 kg(116 lb 4.8 oz) SpO2 92% BMI 21.97 kg/m Temp: [36.4 C (97.6 F)-37.3 C (99.2 F)] 37.3 C (99.2 F) Pulse: [72-89] 75 Resp: [12-22] 18 BP: (112-156)/(52-114) 156/67 SpO2: [77 %-100 %] 92 % O2 Device: Nasal cannula O2 Flow Rate (L/min): [2 L/min-4 L/min] 2 L/min Intake/Output Summary (Last 24 hours) at 12/31/2024 1501 Last data filed at 12/31/2024 0611 Gross per 24 hour Intake 211.14 ml Output 700 ml Net -488.86 ml Physical Exam Vitals and nursing note reviewed. Constitutional: Appearance: She is well-developed. HENT: Head: Normocephalic and atraumatic. Nose: Nose normal. Eyes: Pupils: Pupils are equal, round, and reactive to light. Cardiovascular: Rate and Rhythm: Normal rate and regular rhythm. Heart sounds: Normal heart sounds. No murmur heard. Pulmonary: Effort: Pulmonary effort is normal. No respiratory distress. Breath sounds: Wheezing and rhonchi present. Abdominal: General: Bowel sounds are normal. Palpations: Abdomen is soft. Tenderness: There is no abdominal tenderness. Musculoskeletal: General: Normal range of motion. Cervical back: Neck supple. Lymphadenopathy: Cervical: No cervical adenopathy. Skin: General: Skin is warm and dry. Findings: No rash. Neurological: Mental Status: She is alert and oriented to person, place, and time. Cranial Nerves: No cranial nerve deficit. Medications Scheduled: amLODIPine, 10 mg, oral, Daily apixaban, 5 mg, oral, BID aspirin, 81 mg, oral, Daily carvediloL, 12.5 mg, oral, BID with meals cefTRIAXone (ROCEPHIN) IV, 1,000 mg, intravenous, Q24H doxycycline, 100 mg, oral, BID furosemide, 20 mg, oral, Daily gabapentin, 800 mg, oral, TID guaiFENesin, 600 mg, oral, Q12H NEENA insulin lispro, 2-10 Units, subcutaneous, TID with meals insulin lispro, 2-8 Units, subcutaneous, Nightly ipratropium-albuteroL, 3 mL, nebulization, Q4H While awake levothyroxine, 150 mcg, oral, before breakfast losartan, 100 mg, oral, Daily methylPREDNISolone sodium succinate, 40 mg, intravenous, Q8H metoprolol succinate XL, 25 mg, oral, Daily pantoprazole, 40 mg, oral, BID AC potassium chloride, 20 mEq, oral, Daily QUEtiapine, 25 mg, oral, Nightly sucralfate, 1 g, oral, ACHS Infusions: dextrose 5 % in water, 100 mL/hr sodium chloride 0.9 %, 20 mL/hr As Needed: acetaminophen alum-mag hydroxide-simeth dextrose dextrose 5 % in water dextrose 50 % in water (D50W) glucagon (human recombinant) magnesium sulfate magnesium sulfate ondansetron oxyCODONE-acetaminophen potassium chloride OR potassium chloride OR potassium chloride IV (Adult) sennosides-docusate sodium sodium chloride sodium chloride sodium chloride 0.9 % Allergies: Cyclobenzaprine, Ceclor [cefaclor], Codeine, Lexiscan [regadenoson], Nickel, Simvastatin, and Zithromax [azithromycin] Labs Recent Results (from the past 24 hours) CBC auto differential Collection Time: 12/30/24 3:26 PM Result Value Ref Range WBC 7.3 4 - 11 x10E9/L RBC Count 4.26 3.8 - 5.2 X10E12/L Hemoglobin 11.0 (L) 11.7 - 15.5 g/dL Hematocrit 35.3 35 - 47 % MCV 83 80 - 100 fL MCH 25.9 (L) 27 - 34 pg MCHC 31.2 (L) 32 - 36 g/dL RDW 23.8 (H) 11.5 - 15 % Platelet Count 276 150 - 450 X10E9/L MPV 7.2 7 - 12 fL Neutrophils % 88.8 % Lymphocytes % 5.4 % Monocytes % 3.3 % Eosinophils % 2.3 % Basophils % 0.2 % Neutrophils Absolute (A) 6.5 1.5 - 6.6 10*3/uL Lymphocytes Absolute 0.4 (L) 1.0 - 3.5 10*3/uL Monocytes Absolute 0.2 0.0 - 0.9 10*3/uL Eosinophils Absolute 0.2 0.0 - 0.4 10*3/uL Basophils Absolute 0.0 0.0 - 0.2 10*3/uL Anisocytosis 2+ Elliptocytes 1+ Differential Type AUTOMATED DIFFERENTIAL Comprehensive metabolic panel Collection Time: 12/30/24 3:26 PM Result Value Ref Range SODIUM 134 134 - 146 mmol/L POTASSIUM 2.8 (L) 3.5 - 5.0 mmol/L CHLORIDE 93 (L) 98 - 109 mmol/L CARBON DIOXIDE 29 22 - 32 mmol/L ANION GAP 12 5 - 15 mmol/L BLOOD UREA NITROGEN 17 5 - 27 mg/dL CREATININE 0.87 0.40 - 1.00 mg/dL GLUCOSE 216 (H) 65 - 99 mg/dL CALCIUM 8.2 (L) 8.5 - 10.5 mg/dL TOTAL PROTEIN 6.3 6.0 - 8.0 g/dL ALBUMIN 3.4 3.2 - 5.3 g/dL ALKALINE PHOSPHATASE 87 39 - 130 U/L AST 18 <=41 U/L ALT 14 <=31 U/L BILIRUBIN,TOTAL 0.9 0.3 - 1.2 mg/dL EGFR Non-Race Dependent 74 >=60 ml/min/1.73sq.m B-type natriuretic peptide Collection Time: 12/30/24 3:26 PM Result Value Ref Range BNP 248 (H) <=100 pg/mL Protime & INR Collection Time: 12/30/24 3:26 PM Result Value Ref Range PROTIME 22.2 (H) 9.8 - 13.2 sec INR 2.0 (H) 0.9 - 1.2 APTT Collection Time: 12/30/24 3:26 PM Result Value Ref Range APTT 32 26 - 37 sec D-Dimer Collection Time: 12/30/24 3:26 PM Result Value Ref Range D DIMER 514 (H) 1 - 255 ng/mL Magnesium Collection Time: 12/30/24 3:26 PM Result Value Ref Range MAGNESIUM 1.9 1.8 - 2.6 mg/dL Troponin I, High Sensitivity Collection Time: 12/30/24 3:26 PM Narrative The following orders were created for panel order Troponin I, High Sensitivity. Procedure Abnormality Status --------- ------ Troponin I, High Sensiti...[[id number]] Normal Final result Troponin I, High Sensiti...[[id number]] Normal Final result Please view results for these tests on the individual orders. Troponin I, High Sensitivity 0 Hour Collection Time: 12/30/24 3:26 PM Result Value Ref Range TROPONIN I, HIGH SENSITIVITY 6 <16 ng/L Troponin I, High Sensitivity 1 Hour Collection Time: 12/30/24 4:37 PM Result Value Ref Range TROPONIN I, HIGH SENSITIVITY 6 <16 ng/L Extra Urine Collection Time: 12/30/24 5:08 PM Specimen: Urine, Clean Catch Midstream Result Value Ref Range Extra Tube Auto Resulted Extra Urine Culture Collection Time: 12/30/24 5:08 PM Specimen: Urine, Clean Catch Midstream Result Value Ref Range Extra Tube Auto Resulted Extra Urine [place] Collection Time: 12/30/24 5:08 PM Specimen: Urine, Clean Catch Midstream Result Value Ref Range Extra Tube Auto Resulted POCT Nursing Urine Macroscopic UA Collection Time: 12/30/24 5:08 PM Result Value Ref Range POC Urine Specific [place] 1.010 1.010, 1.015, 1.020, 1.025 POC Urine Leukocyte Esterase Negative Negative POC Urine Nitrite Positive (A) Negative POC Urine pH 7.0 5.0, 6.0, 6.5, 7.0, 7.5, 8.0, 8.5, 5.5 POC Urine Protein Negative Negative POC Urine Glucose Negative Negative POC Urine Ketones Negative Negative POC Urine Urobilinogen 0.2 E.U./dL POC Urine Bilirubin Negative Negative POC Urine Blood/HGB Negative Negative Bedside Glucose *Place/Obtain serum glucose if >500 per glucometer. Collection Time: 12/30/24 9:38 PM Result Value Ref Range Bedside Glucose (POC) 198 (H) 65 - 99 mg/dL Comprehensive metabolic panel Collection Time: 12/31/24 4:48 AM Result Value Ref Range SODIUM 138 134 - 146 mmol/L POTASSIUM 2.8 (L) 3.5 - 5.0 mmol/L CHLORIDE 96 (L) 98 - 109 mmol/L CARBON DIOXIDE 29 22 - 32 mmol/L ANION GAP 13 5 - 15 mmol/L BLOOD UREA NITROGEN 13 5 - 27 mg/dL CREATININE 0.65 0.40 - 1.00 mg/dL GLUCOSE 182 (H) 65 - 99 mg/dL CALCIUM 8.1 (L) 8.5 - 10.5 mg/dL TOTAL PROTEIN 5.9 (L) 6.0 - 8.0 g/dL ALBUMIN 3.1 (L) 3.2 - 5.3 g/dL ALKALINE PHOSPHATASE 81 39 - 130 U/L AST 13 <=41 U/L ALT 12 <=31 U/L BILIRUBIN,TOTAL 0.8 0.3 - 1.2 mg/dL EGFR Non-Race Dependent >90 >=60 ml/min/1.73sq.m Magnesium Collection Time: 12/31/24 4:48 AM Result Value Ref Range MAGNESIUM 2.0 1.8 - 2.6 mg/dL CBC auto differential Collection Time: 12/31/24 4:48 AM Result Value Ref Range WBC 5.0 4 - 11 x10E9/L RBC Count 4.08 3.8 - 5.2 X10E12/L Hemoglobin 10.6 (L) 11.7 - 15.5 g/dL Hematocrit 33.6 (L) 35 - 47 % MCV 83 80 - 100 fL MCH 25.9 (L) 27 - 34 pg MCHC 31.4 (L) 32 - 36 g/dL RDW 23.3 (H) 11.5 - 15 % Platelet Count 282 150 - 450 X10E9/L MPV 7.3 7 - 12 fL Neutrophils % 89.4 % Lymphocytes % 9.2 % Monocytes % 0.8 % Eosinophils % 0.2 % Basophils % 0.4 % Neutrophils Absolute (A) 4.5 1.5 - 6.6 10*3/uL Lymphocytes Absolute 0.5 (L) 1.0 - 3.5 10*3/uL Monocytes Absolute 0.0 0.0 - 0.9 10*3/uL Eosinophils Absolute 0.0 0.0 - 0.4 10*3/uL Basophils Absolute 0.0 0.0 - 0.2 10*3/uL Anisocytosis 2+ Hypochromia 2+ RBC Morphology Reviewed Differential Type AUTOMATED DIFFERENTIAL Potassium Collection Time: 12/31/24 12:04 PM Result Value Ref Range POTASSIUM 3.1 (L) 3.5 - 5.0 mmol/L Radiology CT angiogram chest Result Date: 12/30/2024 Narrative: CT CTA CHEST CLINICAL INFORMATION: elevated dimer, hypoxia COMPARISON: 12/30/2024, 07/25/2024 PROCEDURE: Routine CT pulmonary angiogram obtained after the uncomplicated intravenous administration of contrast. 3-D maximum intensity projection coronal and sagittal reformatted images generated and reviewed. All CT scans at this facility use dose modulation, iterative reconstruction, and/or weight based dosing when appropriate to reduce radiation dose to as low as reasonably achievable. FINDINGS: Interlobular septal thickening, fibrosis. Some areas of peripheral scarring noted. Chronic co nsolidation in the lingula. No effusions. Prominent atherosclerotic calcifications in the aorta. Severe qawalangin coronary artery calcifications. There is prominence of the pulmonary arteries, which could relate to pulmonary artery hypertension with mild cardiomegaly and trace pericardial effusion. There is no visualized acute pulmonary embolism. Streak artifact degrades assessment of the segmental and subsegmental vessels. Right renal atrophy. Mildly prominent lymph nodes in the mediastinum with enlarged precarinal and right anterior tracheal lymph nodes similar to prior examination. Thyroid calcification present. Some edema in the soft tissues. Degenerative changes are present. Old rib deform ities. IMPRESSION: * No evidence of acute pulmonary embolism, findings concerning for pulmonary artery hypertension. * Septal thickening, findings could relate to mild vascular congestion. Scarring and minimal consolidation. * Cardiomegaly. * Unchanged mediastinal and hilar adenopathy. Attention onfollow- up studies recommended. Finalized by Artur Rosen MD on 12/30/2024 5:07 PM X-ray chest 1 view Result Date: 12/30/2024 Narrative: Single view chest History: hypoxia. Chest pain. Comparison: CT scan 07/25/2024. Findings:Single portable view of the chest. Cardiac silhouette is mildly enlarged. There is perihilar pulmonary vascular congestion. Calcification at the aortic knob. Mild interstitial edema. Retrocardiac left basilar opacity. No pleural effusion or pneumothorax. Impression: 1. Retrocardiac left basilar opacity, possibly atelectasis versus pneumonia in the appropriate clinical scenario. 2. Mild perihilar pulmonary vascular congestion with interstitial edema. 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 Right: Lower extremity deep veins are compressible with spontaneous pulsatile spectral Doppler waveforms; superficial veins are compressible without intraluminal content. Left: Non-visualized, absent or surgically harvested Great saphenous superficial vein in the thigh. Lower extremity deep veins are compressible with spontaneous pulsatile spectral Doppler waveforms; remaining superficial veins are compressible without intraluminal content. General: In-patient, bedside examination. Conclusions: RIGHT:NO EVIDENCE of deep or superficial vein thrombosis of the lower extremity. LEFT:The great saphenous vein is not visualized or surgically absent. NO EVIDENCE of deep or superficial veinthrombosis of the lower extremity. CT abdomen and pelvis with contrast Result Date: 12/13/2024 Narrative: CLINICAL INFORMATION: diffuse abd pain, on abx. COMPARISON: 07/25/2024 TECHNIQUE: Contrast-enhanced CT abdomen/pelvis. FINDINGS: LOWER CHEST: No included pericardial or pleural effusion. LIVER AND BILIARY: Cholecystectomy without suspicious focal lesion or overt biliary dilatation. PANCREAS: Within normal limits. SPLEEN: Within normal limits. ADRENALS: Unchanged 1.6 cm right adrenal nodule. Mild thickening left adrenal gland.. KIDNEYS, URETERS, AND BLADDER: Atrophic right kidney. Excreted contrast limits sensitivity for small stones. No hydronephrosis. Normal bladder. GI TRACT AND PERITONEUM: No bowel obstruction. No free fluid or free air. Normal appendix. Ventral hernia defect measures 6.5 cm; hernia sac contains nondilated small and large bowel. VASCULATURE: Prior aortobiiliac bypass. Heavy SMA calcification. Patent portal vein. Apparent left SFA graft appears chronically occluded; correlate with left lower extremity neurovascular exam. LYMPH NODES: Within normal limits. R EPRODUCTIVE ORGANS: No adnexal asymmetry. MUSCULOSKELETAL: Chronic fracture right acetabular roof with robust thickening of the right hip soft tissues. Chronic fractures of the right 11th rib, bilateral L1 and L2 pedicles with similar L1-2 retrolisthesis, L2-3 anterolisthesis Large posterior disc os teophyte at L1-2, similar to prior IMPRESSION: 1. No definitive acute abdominopelvic abnormality. 2. Extensive presumed chronic/nonemergent findings as above All CT scans at this facility use dose modulation, iterative reconstruction, and/or weight based dosing when appropriate to reduce radiation dose to as low as reasonably achievable. Finalized by Nia Hansen MD on 12/13/2024 2:45 PM MR foot left with and without contrast Result Date: 12/07/2024 Narrative: Wound left great toe and second toe and heel. Assess for osteomyelitis Comparison July 15, 2024 PROCEDURE: Multiplanar multisequence images performed through left foot FINDINGS: There is a wound at the heel with edema suggesting cellulitis but no osteomyelitis in that region There is a wound at the great toe and second toe and there is bone edema and pathologic enhancement involving the phalanges of the great toe and second digit consistent with osteomyelitis No other sites of osteomyelitis identified Examination is compromised by motion Grossly no fracture Tibial and fibular sesamoids intact IMPRESSION: Findings consistent with osteomyelitis versus second digit There is a woundat the calcaneus without definite osteomyelitis at this time Finalized by Hernandez Gutiérrez MD on 12/07/2024 11:42 AM X-ray hips bilateral with or without pelvis 5+ views Result Date: 12/05/2024 Narrative: XR HIPS BILAT W OR WO PELVIS 5+ VWS HISTORY: Chronic bilateral hip pain. COMPARISON: None. IMPRESSION: 1. Severe right-sided hip arthritis with chronic remodeling, coxa profunda, subchondral sclerosis and cystic change. 2. Osteopenia. No visible acute fracture or dislocation. Finalized by Jt Mcwilliams MD on 12/05/2024 4:41 PM X-ray foot left minimum 3 views Result Date: 12/05/2024 Narrative: History: r/o osteomylitis Exam/Technique: AP, lateral and oblique. Comparison: 07/13/2024.. Findings: Osteopenia with mild soft tissue swelling. Soft tissue air along the distal findings ofthe first digit without any osseous destruction. Ulceration overlying the second toe with likely erosion of the distal phalanx concerning for osteomyelitis. The remainder of the toes demonstrate no erosive changes. IMPRESSION: Findings raising concern for osteomyelitis of the tuft of the second toesoft tissue air and ulceration overlying the tuft of the first and second toes predominantly. Workst ation:[id number] Finalized by Josiah Ken MD on 12/05/2024 2:38 PM HOSPITAL PROBLEM LIST Principal Problem: Acute cystitis without hematuria Active Problems: Hypothyroidism Tobacco abuse COPD with acute exacerbation ([facility]) Hyperlipidemia Primary hypertension Type 2 diabetes mellitus with diabetic foot infection ([facility]) Osteomyelitis of left foot ([facility]) A-fib ([facility]) Controlled type 2 diabetes mellitus with diabetic peripheral angiopathy and gangrene, without long-term current use of insulin ([facility]) ASSESSMENT & PLAN Acute hypoxic respiratory failure-COPD exacerbation versus fluid overload Currently on Rocephin and doxy Mucinex DuoNebs Solu-Medrol every 8 hours Encouraged incentive spirometer Cough and deep breathe Check respiratory pathogen panel Currently on 2 L nasal cannula D-dimer 514 CT negative for PE did reveal vascular congestion BNP 248 Lasix 40 IV today, is on 20 daily at home Acute cystitis without hematuria UA positive for nitrates Urine culture in process Continue on Rocephin Hypokalemia Potassium 2.8 on admission- 3.1 youth nutritional monitor Daily supplement Is on lasix 20 daily Essential hypertension Chronic diastolic congestive heart failure Norvasc, Coreg, Cozaar, eliquis, asa Midodrine prn Diabetic polyneuropathy associated with type 2 diabetes Gabapentin Insulin sliding scale Carb controlled diet Last A1c 7.6 Osteomyelitis of left foot - second toe On Levaquin per ID, recently admitted for this- needs 4 week total therapy Will need to follow with podiatry as OP Wound care WNL QTC on Levaquin History of tobacco abuse Encouraged cessation Hypothyroidism Continue Synthroid Depression Supportive care Continue home medications Chronic iron deficiency anemia Hgb low but stable- prbc 1 unit given this admission Check occult -not collected Venofer -ferrous sulfate H/h q 12 Eliquis -resume at d/c cbc 1 week Sepsis suspected, no-not clinically evident at this time. Chart reviewed. Admission orders placed. Home medications reconciled. VTE chemoprophylaxis: on DOAC. GI prophylaxis: not indicated. PT/OT to evaluate and treat. DC planning: to snf Medically Ready for Discharge: Anticipated Tomorrow Alondra Amado APRN-FABIENNE 12/31/2024 3:01 PM [facility] 7AM-7PM & 7PM-7AM: EpicChat or page through On-Call F[employer]. Physician Attestation: I have reviewed the above note authored by the Advance Practice Provider (DINESH) including history, review of systems, physical examination, medical decision making and agree with the assessment & plan. I have personally performed a face to face diagnostic evaluation on this patient. I have reviewed all laboratory findings and imaging reports/films. I have independently evaluated the patient and repeated sims portions of the physical exam. I agree with the DINESH plan as above, unless otherwise noted. NAT REYNOLDS MD [facility]10-02-2025 History and physical note* Nat Reynolds MD - 12/31/2024 9:00 AM EDT Images from the original note were not included. [facility] [address] [id number] Hospital Medicine History & Physical Patient: Jonatan Olivarez Date of : 1960 Room: PCP: Osmar Rodriguez MD Admission date: 12/30/2024 3:02 PM Encounter date: 12/31/24 Hospital Day: 2 SUBJECTIVE Jonatan Olivarez is a 64 y.o. female who presents with hypoxia. It is noted that patient was 72% on 2 L upon arrival from [place]. Per staff her readings had been from 48-70% over the last day. Patient denies any shortness of breath or chest pain. She wears 2 L nasal cannula at baseline. Patient was bumped up to 6 L when they arrived she was given a DuoNeb and improved. Of heart disease, CAD, COPD, diabetes, hypertension, hypothyroidism. Patient is a current everyday smoker half pack a day for 40 years. Revealed left basilar opacity, possible atelectasis versus pneumonia, mild perihilar pulmonary vascular congestion with interstitial edema. CTA chest showing no evidence of pulmonary embolism, findings concerning for pulmonary artery hypertension, septal thickening could relate to mild vascular congestion, cardiomegaly, unchanged mediastinal and hilar adenopathy. Lab work remarkable for hemoglobin 11, INR 2, D-dimer 514, potassium 2.8, chloride 93, urinalysis positive for nitrates. Admitted for acute cystitis without hematuria. Allergies: Cyclobenzaprine, Ceclor [cefaclor], Codeine, Lexiscan [regadenoson], Nickel, Simvastatin, and Zithromax [azithromycin] Prior to Admission medications Medication Sig Start Date End Date Taking? Authorizing Provider albuterol (PROVENTIL,VENTOLIN) 2.5 mg /3 mL (0.083 %) nebulizer solution Inhale 3 mL (2.5 mg total)by nebulization every 6 (six) hours as needed for wheezing. 03/18/24 Yes YOVANY Rebolledo amino acids-protein hydrolys 17-100 gram-kcal/30 mL liquid Take 30 mL by mouth in the morning. Pro-stat oral lqiuid ( amino [id number]-slaitctcbip) -give 30 ml po in the morning for wound care. Yes Not In System Ref Prov amLODIPine (NORVASC) 10 mg tablet Take 1 tablet (10 mg total) by mouth in the morning. Indications:high blood pressure. Yes Not In System Ref Prov apixaban (ELIQUIS) 5 mg tablet Take 1 tablet (5 mg total) by mouth in the morning and 1 tablet (5 mg total) before bedtime. Yes Not In System Ref Prov aspirin 81 mg chewable tablet Chew 1 tablet (81 mg total) and swallow in the morning. 01/18/24 Yes YOVANY Kenyon benzonatate (TESSALON PERLES) 200 mg capsule Take 1 capsule (200 mg total) by mouth as needed in the morning and 1 capsule (200 mg total) as needed at noon and 1 capsule (200 mg total) as needed in the evening for cough. 04/06/24 Yes Not In System Ref Prov carvediloL (COREG) 12.5 mg tablet Take 1 tablet (12.5 mg total) by mouth in the morning and 1 tablet (12.5 mg total) in the evening. Take with meals. 02/06/24 Yes Not In System Ref Prov cholecalciferol, vitamin D3, 2,000 units tablet Take by mouth in the morning. Yes Not In System RefProv diphenhydrAMINE (BENADRYL) 25 mg capsule Take 1 capsule (25 mg total) by mouth every 6 (six) hours as needed for itching. 12/11/24 Yes YOVANY Cai docusate sodium (COLACE) 100 mg capsule Take 1 capsule (100 mg total) by mouth as needed in the morning and 1 capsule (100 mg total) as needed in the evening for constipation. 02/06/24 Yes Not In System Ref Prov ferrous sulfate 325 (65 FE) MG tablet Take 1 tablet (325 mg total) by mouth in the morning. 12/17/24Yes YOVANY Tang furosemide (LASIX) 20 mg tablet Take 1 tablet (20 mg total) by mouth daily. 02/06/24 Yes Not In System Ref Prov ipratropium-albuteroL (DUONEB) 0.5 mg-3 mg(2.5 mg base)/3 mL nebulizer Inhale 3 mL by nebulization 3 (three) times a day as needed for wheezing or shortness of breath. 3 mL nebulization every 8 hoursx7 days, then every 8 hours as needed for cough, shortness of breath, and or wheezing Patient taking differently: Inhale 3 mL by nebulization as needed in the morning and 3 mL as neededat noon and 3 mL as needed in the evening for wheezing or shortness of breath. every 8 hours as needed for cough, shortness of breath, and or wheezing. 10/23/22 Yes Fredy Mcclain APRN-FABIENNE levoFLOXacin (LEVAQUIN) 750 mg tablet Take 1 tablet (750 mg total) by mouth in the morning for 28 days. 12/11/24 01/08/25 Yes YOVANY Cai levothyroxine (SYNTHROID, LEVOTHROID) 150 MCG tablet Take 1 tablet (150 mcg total) by mouth in the morning. Yes Not In System Ref Prov losartan (COZAAR) 100 mg tablet Take 1 tablet (100 mg total) by mouth in the morning. 09/06/22 Yes Sejal Perez APRN-FABIENNE melatonin 10 mg tablet Take 1 tablet by mouth once daily at bedtime. Yes Not In System Ref Prov methocarbamoL (ROBAXIN) 750 mg tablet Take 1 tablet (750 mg total) by mouth in the morning and 1 tablet (750 mg total) at noon and 1 tablet (750 mg total) in the evening and 1 tablet (750 mg total) before bedtime. Indications: muscle spasm. Yes Not In System Ref Prov metoprolol succinate XL (TOPROL XL) 25 mg 24 hr tablet Take 1 tablet (25 mg total) by mouth in the morning. 09/27/22 Yes YOVANY Cedeno nitroglycerin (NITROSTAT) 0.[address] 1 tablet (0.4 mg total) under the tongue every 5 (five) minutes as needed for chest pain. Yes Not In System Ref Prov ondansetron ODT (ZOFRAN ODT) 4 mg disintegrating tablet Dissolve 1 tablet (4 mg total) on tongue every 8 (eight) hours as needed for nausea or vomiting. 02/06/24 Yes Not In System Ref Prov oxyCODONE-acetaminophen (PERCOCET) 5-325 mg per tablet Take 1 tablet by mouth every 6 (six) hours as needed for pain. Max Daily Amount: 4 tablets Yes Not In System Ref Prov pantoprazole (PROTONIX) 40 mg EC tablet Take 1 tablet (40 mg total) by mouth in the morning and 1 tablet (40 mg total) in the evening. Take before meals. 01/17/24 Yes YOVANY Kenyon potassium chloride (KLOR-CON) 20 mEq packet Take 1 packet (20 mEq total) by mouth in the morning and 1 packet (20 mEq total) before bedtime. 02/06/24 Yes Not In System Ref Prov pravastatin (PRAVACHOL) 40 mg tablet Take 1 tablet (40 mg total) by mouth in the morning. Yes Not In System Ref Prov predniSONE (DELTASONE) 10 mg tablet Take 1 tablet (10 mg total) by mouth in the morning. Yes Not InSystem Ref Prov QUEtiapine (SEROquel) 25 mg tablet Take 1 tablet (25 mg total) by mouth nightly. For anxiety 03/29/24 Yes Not In System Ref Prov sucralfate (CARAFATE) 100 mg/mL suspension Take 10 mL (1,000 mg total) by mouth 4 (four) times a day with meals and nightly. Yes Not In System Ref Prov venlafaxine XR (EFFEXOR XR) 75 mg 24 hr capsule Take 1 capsule (75 mg total) by mouth in the morning. 02/06/24 Yes Not In System Ref Prov venlafaxine XR (EFFEXOR-XR) 150 mg 24 hr capsule Take 1 capsule (150 mg total) by mouth in the morning. 02/06/24 Yes Not In System Ref Prov acetaminophen (TYLENOL) 325 mg tablet Take 2 tablets (650 mg total) by mouth every 6 (six) hours asneeded for fever. Not In System Ref Prov albuterol (PROVENTIL HFA;VENTOLIN HFA) 90 mcg/actuation inhaler Take 2 puffs by mouth as needed in the morning and 2 puffs as needed at noon and 2 puffs as needed in the evening and 2 puffs as neededbefore bedtime. 02/06/24 Not In System Ref Prov albuterol (PROVENTIL,VENTOLIN) 2.5 mg /3 mL (0.083 %) nebulizer solution Inhale 3 mL (2.5 mg total)by nebulization every 2 (two) hours as needed for wheezing. Q2hr prn via neb shortness of breath Not In System Ref Prov blood sugar diagnostic (TRUE METRIX GLUCOSE TEST STRIP) strip 1 strip by other route as needed for high blood sugar. 07/16/24 YOVANY Tang budesonide-formoteroL (SYMBICORT) 160-4.5 mcg/actuation inhaler Inhale 2 puffs in the morning and 2puffs before bedtime. 02/06/24 Not In System Ref Prov fluticasone propion-salmeteroL (ADVAIR) 250-50 mcg/dose DISKUS Inhale 1 puff in the morning and 1 puff before bedtime. Not In System Ref Prov naloxone (NARCAN) 4 mg/actuation spray,non-aerosol nasal spray Administer 1 spray (4 mg total) intoalternating nostrils as needed for opioid reversal. 12/17/24 YOVANY Tang Code Status: Full Code Past Medical History: Patient has a past medical history of ASHD (arteriosclerotic heart disease), Atherosclerosis of both carotid arteries, CAD S/P percutaneous coronary angioplasty, Claudication in peripheral vascular disease, COPD (chronic obstructive pulmonary disease) ([facility]), Dental disease, Diabetes mellitus ( [facility]), Diabetes mellitus type 2, controlled ([facility]), Disease of thyroid gland, Dizziness, Emphysema of lung ([facility]), Hypertension, Hypothyroidism, Lower GI bleed (01/09/2024), Stable angina, Ulcer, Ventral hernia, and Visual impairment. Past Surgical History: Patient has a past surgical history that includes Cholecystectomy; Femoral bypass (2009); Cardiac surgery (2000); Cardiac catheterization; Hysterectomy (2007); Vascular surgery (2007); Arterial bypass surgry (Left, 06/03/2017); Cardiac catheterization (N/A, 09/25/2022); Cardiac catheterization (N/A, ); Esophagogastroduodenoscopy (N/A, 01/10/2024); Esophagogastroduodenoscopy (N/A, 01/17/2024); Thrombectomy w/ embolectomy (Left, 04/17/2024); and Angiogram (Right, 04/18/2024). Family History: Patient's family history is not on file. Social History: Patient reports that she has been smoking cigarettes. She has a 20 pack-year smoking history. She has never used smokeless tobacco. She reports that she does not drink alcohol and does not use drugs. Review of Systems Constitutional: Negative for chills and fever. HENT: Negative for ear pain and sore throat. Eyes: Negative for pain and visual disturbance. Respiratory: Positive for cough and shortness of breath. Cardiovascular: Negative for chest pain and palpitations. Gastrointestinal: Negative for abdominal pain and vomiting. Genitourinary: Negative for dysuria and hematuria. Musculoskeletal: Negative for arthralgias and back pain. Skin: Negative for color change and rash. Neurological: Negative for seizures and syncope. All other systems reviewed and are negative. OBJECTIVE BP 156/67 Pulse 75 Temp 37.3 C (99.2 F) (Axillary) Resp 18 Ht 154.9 cm (5' 1 ) Wt 52.8 kg(116 lb 4.8 oz) SpO2 92% BMI 21.97 kg/m Temp: [36.4 C (97.6 F)-37.3 C (99.2 F)] 37.3 C (99.2 F) Pulse: [72-89] 75 Resp: [12-22] 18 BP: (112-156)/(52-114) 156/67 SpO2: [77 %-100 %] 92 % O2 Device: Nasal cannula O2 Flow Rate (L/min): [2 L/min-4 L/min] 2 L/min Intake/Output Summary (Last 24 hours) at 12/31/2024 1501 Last data filed at 12/31/2024 0611 Gross per 24 hour Intake 211.14 ml Output 700 ml Net -488.86 ml Physical Exam Vitals and nursing note reviewed. Constitutional: Appearance: She is well-developed. HENT: Head: Normocephalic and atraumatic. Nose: Nose normal. Eyes: Pupils: Pupils are equal, round, and reactive to light. Cardiovascular: Rate and Rhythm: Normal rate and regular rhythm. Heart sounds: Normal heart sounds. No murmur heard. Pulmonary: Effort: Pulmonary effort is normal. No respiratory distress. Breath sounds: Wheezing and rhonchi present. Abdominal: General: Bowel sounds are normal. Palpations: Abdomen is soft. Tenderness: There is no abdominal tenderness. Musculoskeletal: General: Normal range of motion. Cervical back: Neck supple. Lymphadenopathy: Cervical: No cervical adenopathy. Skin: General: Skin is warm and dry. Findings: No rash. Neurological: Mental Status: She is alert and oriented to person, place, and time. Cranial Nerves: No cranial nerve deficit. Medications Scheduled: amLODIPine, 10 mg, oral, Daily apixaban, 5 mg, oral, BID aspirin, 81 mg, oral, Daily carvediloL, 12.5 mg, oral, BID with meals cefTRIAXone (ROCEPHIN) IV, 1,000 mg, intravenous, Q24H doxycycline, 100 mg, oral, BID furosemide, 20 mg, oral, Daily gabapentin, 800 mg, oral, TID guaiFENesin, 600 mg, oral, Q12H NEENA insulin lispro, 2-10 Units, subcutaneous, TID with meals insulin lispro, 2-8 Units, subcutaneous, Nightly ipratropium-albuteroL, 3 mL, nebulization, Q4H While awake levothyroxine, 150 mcg, oral, before breakfast losartan, 100 mg, oral, Daily methylPREDNISolone sodium succinate, 40 mg, intravenous, Q8H metoprolol succinate XL, 25 mg, oral, Daily pantoprazole, 40 mg, oral, BID AC potassium chloride, 20 mEq, oral, Daily QUEtiapine, 25 mg, oral, Nightly sucralfate, 1 g, oral, ACHS Infusions: dextrose 5 % in water, 100 mL/hr sodium chloride 0.9 %, 20 mL/hr As Needed: acetaminophen alum-mag hydroxide-simeth dextrose dextrose 5 % in water dextrose 50 % in water (D50W) glucagon (human recombinant) magnesium sulfate magnesium sulfate ondansetron oxyCODONE-acetaminophen potassium chloride OR potassium chloride OR potassium chloride IV (Adult) sennosides-docusate sodium sodium chloride sodium chloride sodium chloride 0.9 % Allergies: Cyclobenzaprine, Ceclor [cefaclor], Codeine, Lexiscan [regadenoson], Nickel, Simvastatin, and Zithromax [azithromycin] Labs Recent Results (from the past 24 hours) CBC auto differential Collection Time: 12/30/24 3:26 PM Result Value Ref Range WBC 7.3 4 - 11 x10E9/L RBC Count 4.26 3.8 - 5.2 X10E12/L Hemoglobin 11.0 (L) 11.7 - 15.5 g/dL Hematocrit 35.3 35 - 47 % MCV 83 80 - 100 fL MCH 25.9 (L) 27 - 34 pg MCHC 31.2 (L) 32 - 36 g/dL RDW 23.8 (H) 11.5 - 15 % Platelet Count 276 150 - 450 X10E9/L MPV 7.2 7 - 12 fL Neutrophils % 88.8 % Lymphocytes % 5.4 % Monocytes % 3.3 % Eosinophils % 2.3 % Basophils % 0.2 % Neutrophils Absolute (A) 6.5 1.5 - 6.6 10*3/uL Lymphocytes Absolute 0.4 (L) 1.0 - 3.5 10*3/uL Monocytes Absolute 0.2 0.0 - 0.9 10*3/uL Eosinophils Absolute 0.2 0.0 - 0.4 10*3/uL Basophils Absolute 0.0 0.0 - 0.2 10*3/uL Anisocytosis 2+ Elliptocytes 1+ Differential Type AUTOMATED DIFFERENTIAL Comprehensive metabolic panel Collection Time: 12/30/24 3:26 PM Result Value Ref Range SODIUM 134 134 - 146 mmol/L POTASSIUM 2.8 (L) 3.5 - 5.0 mmol/L CHLORIDE 93 (L) 98 - 109 mmol/L CARBON DIOXIDE 29 22 - 32 mmol/L ANION GAP 12 5 - 15 mmol/L BLOOD UREA NITROGEN 17 5 - 27 mg/dL CREATININE 0.87 0.40 - 1.00 mg/dL GLUCOSE 216 (H) 65 - 99 mg/dL CALCIUM 8.2 (L) 8.5 - 10.5 mg/dL TOTAL PROTEIN 6.3 6.0 - 8.0 g/dL ALBUMIN 3.4 3.2 - 5.3 g/dL ALKALINE PHOSPHATASE 87 39 - 130 U/L AST 18 <=41 U/L ALT 14 <=31 U/L BILIRUBIN,TOTAL 0.9 0.3 - 1.2 mg/dL EGFR Non-Race Dependent 74 >=60 ml/min/1.73sq.m B-type natriuretic peptide Collection Time: 12/30/24 3:26 PM Result Value Ref Range BNP 248 (H) <=100 pg/mL Protime & INR Collection Time: 12/30/24 3:26 PM Result Value Ref Range PROTIME 22.2 (H) 9.8 - 13.2 sec INR 2.0 (H) 0.9 - 1.2 APTT Collection Time: 12/30/24 3:26 PM Result Value Ref Range APTT 32 26 - 37 sec D-Dimer Collection Time: 12/30/24 3:26 PM Result Value Ref Range D DIMER 514 (H) 1 - 255 ng/mL Magnesium Collection Time: 12/30/24 3:26 PM Result Value Ref Range MAGNESIUM 1.9 1.8 - 2.6 mg/dL Troponin I, High Sensitivity Collection Time: 12/30/24 3:26 PM Narrative The following orders were created for panel order Troponin I, High Sensitivity. Procedure Abnormality Status --------- ------ Troponin I, High Sensiti...[[id number]] Normal Final result Troponin I, High Sensiti...[[id number]] Normal Final result Please view results for these tests on the individual orders. Troponin I, High Sensitivity 0 Hour Collection Time: 12/30/24 3:26 PM Result Value Ref Range TROPONIN I, HIGH SENSITIVITY 6 <16 ng/L Troponin I, High Sensitivity 1 Hour Collection Time: 12/30/24 4:37 PM Result Value Ref Range TROPONIN I, HIGH SENSITIVITY 6 <16 ng/L Extra Urine Collection Time: 12/30/24 5:08 PM Specimen: Urine, Clean Catch Midstream Result Value Ref Range Extra Tube Auto Resulted Extra Urine Culture Collection Time: 12/30/24 5:08 PM Specimen: Urine, Clean Catch Midstream Result Value Ref Range Extra Tube Auto Resulted Extra Urine [place] Collection Time: 12/30/24 5:08 PM Specimen: Urine, Clean Catch Midstream Result Value Ref Range Extra Tube Auto Resulted POCT Nursing Urine Macroscopic UA Collection Time: 12/30/24 5:08 PM Result Value Ref Range POC Urine Specific [place] 1.010 1.010, 1.015, 1.020, 1.025 POC Urine Leukocyte Esterase Negative Negative POC Urine Nitrite Positive (A) Negative POC Urine pH 7.0 5.0, 6.0, 6.5, 7.0, 7.5, 8.0, 8.5, 5.5 POC Urine Protein Negative Negative POC Urine Glucose Negative Negative POC Urine Ketones Negative Negative POC Urine Urobilinogen 0.2 E.U./dL POC Urine Bilirubin Negative Negative POC Urine Blood/HGB Negative Negative Bedside Glucose *Place/Obtain serum glucose if >500 per glucometer. Collection Time: 12/30/24 9:38 PM Result Value Ref Range Bedside Glucose (POC) 198 (H) 65 - 99 mg/dL Comprehensive metabolic panel Collection Time: 12/31/24 4:48 AM Result Value Ref Range SODIUM 138 134 - 146 mmol/L POTASSIUM 2.8 (L) 3.5 - 5.0 mmol/L CHLORIDE 96 (L) 98 - 109 mmol/L CARBON DIOXIDE 29 22 - 32 mmol/L ANION GAP 13 5 - 15 mmol/L BLOOD UREA NITROGEN 13 5 - 27 mg/dL CREATININE 0.65 0.40 - 1.00 mg/dL GLUCOSE 182 (H) 65 - 99 mg/dL CALCIUM 8.1 (L) 8.5 - 10.5 mg/dL TOTAL PROTEIN 5.9 (L) 6.0 - 8.0 g/dL ALBUMIN 3.1 (L) 3.2 - 5.3 g/dL ALKALINE PHOSPHATASE 81 39 - 130 U/L AST 13 <=41 U/L ALT 12 <=31 U/L BILIRUBIN,TOTAL 0.8 0.3 - 1.2 mg/dL EGFR Non-Race Dependent >90 >=60 ml/min/1.73sq.m Magnesium Collection Time: 12/31/24 4:48 AM Result Value Ref Range MAGNESIUM 2.0 1.8 - 2.6 mg/dL CBC auto differential Collection Time: 12/31/24 4:48 AM Result Value Ref Range WBC 5.0 4 - 11 x10E9/L RBC Count 4.08 3.8 - 5.2 X10E12/L Hemoglobin 10.6 (L) 11.7 - 15.5 g/dL Hematocrit 33.6 (L) 35 - 47 % MCV 83 80 - 100 fL MCH 25.9 (L) 27 - 34 pg MCHC 31.4 (L) 32 - 36 g/dL RDW 23.3 (H) 11.5 - 15 % Platelet Count 282 150 - 450 X10E9/L MPV 7.3 7 - 12 fL Neutrophils % 89.4 % Lymphocytes % 9.2 % Monocytes % 0.8 % Eosinophils % 0.2 % Basophils % 0.4 % Neutrophils Absolute (A) 4.5 1.5 - 6.6 10*3/uL Lymphocytes Absolute 0.5 (L) 1.0 - 3.5 10*3/uL Monocytes Absolute 0.0 0.0 - 0.9 10*3/uL Eosinophils Absolute 0.0 0.0 - 0.4 10*3/uL Basophils Absolute 0.0 0.0 - 0.2 10*3/uL Anisocytosis 2+ Hypochromia 2+ RBC Morphology Reviewed Differential Type AUTOMATED DIFFERENTIAL Potassium Collection Time: 12/31/24 12:04 PM Result Value Ref Range POTASSIUM 3.1 (L) 3.5 - 5.0 mmol/L Radiology CT angiogram chest Result Date: 12/30/2024 Narrative: CT CTA CHEST CLINICAL INFORMATION: elevated dimer, hypoxia COMPARISON: 12/30/2024, 07/25/2024 PROCEDURE: Routine CT pulmonary angiogram obtained after the uncomplicated intravenous administration of contrast. 3-D maximum intensity projection coronal and sagittal reformatted images generated and reviewed. All CT scans at this facility use dose modulation, iterative reconstruction, and/or weight based dosing when appropriate to reduce radiation dose to as low as reasonably achievable. FINDINGS: Interlobular septal thickening, fibrosis. Some areas of peripheral scarring noted. Chronic co nsolidation in the lingula. No effusions. Prominent atherosclerotic calcifications in the aorta. Severe qawalangin coronary artery calcifications. There is prominence of the pulmonary arteries, which could relate to pulmonary artery hypertension with mild cardiomegaly and trace pericardial effusion. There is no visualized acute pulmonary embolism. Streak artifact degrades assessment of the segmental and subsegmental vessels. Right renal atrophy. Mildly prominent lymph nodes in the mediastinum with enlarged precarinal and right anterior tracheal lymph nodes similar to prior examination. Thyroid calcification present. Some edema in the soft tissues. Degenerative changes are present. Old rib deform ities. IMPRESSION: * No evidence of acute pulmonary embolism, findings concerning for pulmonary artery hypertension. * Septal thickening, findings could relate to mild vascular congestion. Scarring and minimal consolidation. * Cardiomegaly. * Unchanged mediastinal and hilar adenopathy. Attention onfollow- up studies recommended. Finalized by Artur Rosen MD on 12/30/2024 5:07 PM X-ray chest 1 view Result Date: 12/30/2024 Narrative: Single view chest History: hypoxia. Chest pain. Comparison: CT scan 07/25/2024. Findings:Single portable view of the chest. Cardiac silhouette is mildly enlarged. There is perihilar pulmonary vascular congestion. Calcification at the aortic knob. Mild interstitial edema. Retrocardiac left basilar opacity. No pleural effusion or pneumothorax. Impression: 1. Retrocardiac left basilar opacity, possibly atelectasis versus pneumonia in the appropriate clinical scenario. 2. Mild perihilar pulmonary vascular congestion with interstitial edema. 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 Right: Lower extremity deep veins are compressible with spontaneous pulsatile spectral Doppler waveforms; superficial veins are compressible without intraluminal content. Left: Non-visualized, absent or surgically harvested Great saphenous superficial vein in the thigh. Lower extremity deep veins are compressible with spontaneous pulsatile spectral Doppler waveforms; remaining superficial veins are compressible without intraluminal content. General: In-patient, bedside examination. Conclusions: RIGHT:NO EVIDENCE of deep or superficial vein thrombosis of the lower extremity. LEFT:The great saphenous vein is not visualized or surgically absent. NO EVIDENCE of deep or superficial veinthrombosis of the lower extremity. CT abdomen and pelvis with contrast Result Date: 12/13/2024 Narrative: CLINICAL INFORMATION: diffuse abd pain, on abx. COMPARISON: 07/25/2024 TECHNIQUE: Contrast-enhanced CT abdomen/pelvis. FINDINGS: LOWER CHEST: No included pericardial or pleural effusion. LIVER AND BILIARY: Cholecystectomy without suspicious focal lesion or overt biliary dilatation. PANCREAS: Within normal limits. SPLEEN: Within normal limits. ADRENALS: Unchanged 1.6 cm right adrenal nodule. Mild thickening left adrenal gland.. KIDNEYS, URETERS, AND BLADDER: Atrophic right kidney. Excreted contrast limits sensitivity for small stones. No hydronephrosis. Normal bladder. GI TRACT AND PERITONEUM: No bowel obstruction. No free fluid or free air. Normal appendix. Ventral hernia defect measures 6.5 cm; hernia sac contains nondilated small and large bowel. VASCULATURE: Prior aortobiiliac bypass. Heavy SMA calcification. Patent portal vein. Apparent left SFA graft appears chronically occluded; correlate with left lower extremity neurovascular exam. LYMPH NODES: Within normal limits. R EPRODUCTIVE ORGANS: No adnexal asymmetry. MUSCULOSKELETAL: Chronic fracture right acetabular roof with robust thickening of the right hip soft tissues. Chronic fractures of the right 11th rib, bilateral L1 and L2 pedicles with similar L1-2 retrolisthesis, L2-3 anterolisthesis Large posterior disc os teophyte at L1-2, similar to prior IMPRESSION: 1. No definitive acute abdominopelvic abnormality. 2. Extensive presumed chronic/nonemergent findings as above All CT scans at this facility use dose modulation, iterative reconstruction, and/or weight based dosing when appropriate to reduce radiation dose to as low as reasonably achievable. Finalized by Nia Hansen MD on 12/13/2024 2:45 PM MR foot left with and without contrast Result Date: 12/07/2024 Narrative: Wound left great toe and second toe and heel. Assess for osteomyelitis Comparison July 15, 2024 PROCEDURE: Multiplanar multisequence images performed through left foot FINDINGS: There is a wound at the heel with edema suggesting cellulitis but no osteomyelitis in that region There is a wound at the great toe and second toe and there is bone edema and pathologic enhancement involving the phalanges of the great toe and second digit consistent with osteomyelitis No other sites of osteomyelitis identified Examination is compromised by motion Grossly no fracture Tibial and fibular sesamoids intact IMPRESSION: Findings consistent with osteomyelitis versus second digit There is a woundat the calcaneus without definite osteomyelitis at this time Finalized by Hernandez Gutiérrez MD on 12/07/2024 11:42 AM X-ray hips bilateral with or without pelvis 5+ views Result Date: 12/05/2024 Narrative: XR HIPS BILAT W OR WO PELVIS 5+ VWS HISTORY: Chronic bilateral hip pain. COMPARISON: None. IMPRESSION: 1. Severe right-sided hip arthritis with chronic remodeling, coxa profunda, subchondral sclerosis and cystic change. 2. Osteopenia. No visible acute fracture or dislocation. Finalized by Jt Mcwilliams MD on 12/05/2024 4:41 PM X-ray foot left minimum 3 views Result Date: 12/05/2024 Narrative: History: r/o osteomylitis Exam/Technique: AP, lateral and oblique. Comparison: 07/13/2024.. Findings: Osteopenia with mild soft tissue swelling. Soft tissue air along the distal findings ofthe first digit without any osseous destruction. Ulceration overlying the second toe with likely erosion of the distal phalanx concerning for osteomyelitis. The remainder of the toes demonstrate no erosive changes. IMPRESSION: Findings raising concern for osteomyelitis of the tuft of the second toesoft tissue air and ulceration overlying the tuft of the first and second toes predominantly. Workst ation:[id number] Finalized by Josiah Ken MD on 12/05/2024 2:38 PM HOSPITAL PROBLEM LIST Principal Problem: Acute cystitis without hematuria Active Problems: Hypothyroidism Tobacco abuse COPD with acute exacerbation ([facility]) Hyperlipidemia Primary hypertension Type 2 diabetes mellitus with diabetic foot infection ([facility]) Osteomyelitis of left foot ([facility]) A-fib ([facility]) Controlled type 2 diabetes mellitus with diabetic peripheral angiopathy and gangrene, without long-term current use of insulin ([facility]) ASSESSMENT & PLAN Acute hypoxic respiratory failure-COPD exacerbation versus fluid overload Currently on Rocephin and doxy Mucinex DuoNebs Solu-Medrol every 8 hours Encouraged incentive spirometer Cough and deep breathe Check respiratory pathogen panel Currently on 2 L nasal cannula D-dimer 514 CT negative for PE did reveal vascular congestion BNP 248 Lasix 40 IV today, is on 20 daily at home Acute cystitis without hematuria UA positive for nitrates Urine culture in process Continue on Rocephin Hypokalemia Potassium 2.8 on admission- 3.1 youth nutritional monitor Daily supplement Is on lasix 20 daily Essential hypertension Chronic diastolic congestive heart failure Norvasc, Coreg, Cozaar, eliquis, asa Midodrine prn Diabetic polyneuropathy associated with type 2 diabetes Gabapentin Insulin sliding scale Carb controlled diet Last A1c 7.6 Osteomyelitis of left foot - second toe On Levaquin per ID, recently admitted for this- needs 4 week total therapy Will need to follow with podiatry as OP Wound care WNL QTC on Levaquin History of tobacco abuse Encouraged cessation Hypothyroidism Continue Synthroid Depression Supportive care Continue home medications Chronic iron deficiency anemia Hgb low but stable- prbc 1 unit given this admission Check occult -not collected Venofer -ferrous sulfate H/h q 12 Eliquis -resume at d/c cbc 1 week Sepsis suspected, no-not clinically evident at this time. Chart reviewed. Admission orders placed. Home medications reconciled. VTE chemoprophylaxis: on DOAC. GI prophylaxis: not indicated. PT/OT to evaluate and treat. DC planning: to snf Medically Ready for Discharge: Anticipated Tomorrow YOVANY Tang 12/31/2024 3:01 PM [facility] 7AM-7PM & 7PM-7AM: EpicChat or page through On-[employer]. Physician Attestation: I have reviewed the above note authored by the Advance Practice Provider (DINESH) including history, review of systems, physical examination, medical decision making and agree with the assessment & plan. I have personally performed a face to face diagnostic evaluation on this patient. I have reviewed all laboratory findings and imaging reports/films. I have independently evaluated the patient and repeated sims portions of the physical exam. I agree with the DINESH plan as above, unless otherwise noted. NAT REYNOLDS [facility]* Anushka Zimmerman RN - 12/31/2024 6:25 AM EDT Pt uncooperative with taking am medications. Refusing to take all of her potassium replacement, pt took 30 of the 50meq needed for replacement per protocol. Pt educated on importance of taking potassium and risks of not taking potassium. Pt continues to refuse. [facility] Progress note* Wound Care - Anushka Zimmerman RN - 12/30/2024 11:05 PM EDT Wound care and dressing change completed to RLE. See photos in Media.No rinse wound cleanser applied to all wounds. Iodine applied to R inner/mid foot dry scabbed area, R outer heel multiple small scabbed areas, scabbed areas top of R foot, et R post great toe and 2nd toe. Alginate applied to R achilles and and heel area et covered w/ abd. 2x2's applied to cover post R great and 2nd toes.All wound areas then wrapped w/ gauze roll. Pt tolerated well. [facility] Progress note* Wound Care - Anushka Zimmerman RN - 12/30/2024 10:50 PM EDT Wound care and dressing change completed to LLE. See photos in media. No rinse wound cleanser applied to scabbed et open areas. Betadine applied to post great toe and post 2nd toe. Wounds circular inshape, no drg noted. Tissue pink. Betadine applied to scabbed areas L lateral/outer foot. No drainage noted. Left heel circular open area, tissue pink, sanchez in center. Skin surrounding area dry/pink/scaly. Alginate applied to L heel 2x2s applied to open areas post toes. ABD over top of alginate and L outer foot. Wound areas then wrapped w/ gauze roll. Pt tolerated well. [facility] Physician Emergency department Note* Kellen HILDA Shah-FABIENNE - 12/30/2024 3:09 PM EDT Images from the original note were not included. [facility] - EMERGENCY Pt Name: Jonatan Olivarez Birthdate: 1960 Chief Complaint: Chief Complaint Patient presents with Shortness of Breath EMS reports that pt was 72% 2L NC upon arrival at nursing facility. History of Present Illness: Savita Olivarez is a 64-year-old female that presents to ED via EMS from [facility] with complaint of hypoxia. Staff state that the patient has been having pulse ox readings in the 48 to 70% range today and yesterday. Patient is denying any shortness of breath or chest pain. She wears 2 L of oxygen via nasal cannula at baseline. EMS bumped her up to 6 L when they arrived to the facility. They gave her a DuoNeb them bumped her back down to her baseline of 2 L. they were unable to give her any IV steroids as she refused IV access for them. Patient denies any nausea or or abdominal pain. Denies any fevers or sick contacts. History provided by: Patient and EMS personnel bilingual interpreter used: No Past Medical History: Past Medical History: Diagnosis Date ASHD (arteriosclerotic heart disease) Atherosclerosis of both carotid arteries CAD S/P percutaneous coronary angioplasty Claudication in peripheral vascular disease COPD (chronic obstructive pulmonary disease) ([facility]) Dental disease Diabetes mellitus ([facility]) Diabetes mellitus type 2, controlled ([facility]) Disease of thyroid gland Dizziness Emphysema of lung ([facility]) Hypertension Hypothyroidism Lower GI bleed 01/09/2024 Stable angina Ulcer left great toe Ventral hernia Visual impairment Past Surgical History: Past Surgical History: Procedure Laterality Date AORTO-BIFEMORAL BYPASS, VENTRAL HERNIA REPAIR, LEFT FEMORAL TO [id number] POPLITEAL BYPASS [id number] PTFE PROPATEN GORE VASCULAR GRAFT, AND COMPLETION ANGIOGRAM OF LEFT LOWER EXTREMITY Left 06/03/2017 Performed by Rebeca Johnson DO at [facility] CARDIAC CATHETERIZATION Cardiac catheterization N/A 09/25/2022 Performed by Bonnie Toledo MD at [facility]ATH LAB[facility] CARDIAC SURGERY 2001 3 stents CHOLECYSTECTOMY Coronary angiogram and left ventricular gram/pressure N/A 09/25/2022 Performed by Bonnie Toledo MD at [facility] CATH [facility] ESOPHAGOGASTRODUODENOSCOPY DIAGNOSTIC N/A 01/17/2024 Performed by Jazmine Gutierrez MD at [facility] ESOPHAGOGASTRODUODENOSCOPY DIAGNOSTIC N/A 01/10/2024 Performed by Renuka Angeles MD at [facility] FEMORAL BYPASS 2009 HYSTERECTOMY 2008 abdominal LYSIS RECHECK AND REMOVAL EXTREMITY UPPER Right 04/18/2024 Performed by Rebeca Johnson MD at [facility] PROC RIGHT BRACHIAL ACCESS, LEFT FEMORAL ANGIOGRAM, LYSIS CATHETER PLACEMENT Left 04/17/2024 Performed by Rebeca Johnson DO at [facility] VASCULAR SURGERY 2007 blood clot removed/after hysterectomy/abdominal area Family History: Family History Problem Relation Age of Onset Anesthesia problems Neg Hx Social History: Social History Socioeconomic History Marital status: Tobacco Use Smoking status: Every Day Current packs/day: 0.50 Average packs/day: 0.5 packs/day for 40.0 years (20.0 ttl pk-yrs) Types: Cigarettes Smokeless tobacco: Never Tobacco comments: needs a nicotine patch upon arrival Vaping Use Vaping status: Never Used Substance and Sexual Activity Alcohol use: No Drug use: No Sexual activity: Defer Social Drivers of Health Financial Resource Strain: High Risk (07/13/2024) Overall Financial Resource Strain (CARDIA) Difficulty of Paying Living Expenses: Hard Food Insecurity: No Food Insecurity (12/30/2024) Hunger Screening Food Insecurity - Worry: Never True Food Insecurity - Inability: Never True Transportation Needs: No Transportation Needs (12/15/2024) PRAPARE - Transportation Lack of Transportation (Medical): No Lack of Transportation (Non-Medical): No Recent Concern: Transportation Needs - Unmet Transportation Needs (10/22/2024) [facility] from [facility] PRAPARE - Transportation Lack of Transportation (Medical): Yes Lack of Transportation (Non-Medical): Yes Physical Activity: Inactive (10/22/2022) Exercise Vital Sign Days of Exercise per Week: 0 days Minutes of Exercise per Session: 0 min Stress: No Stress Concern Present (10/22/2022) [place] [employer] - Occupational Stress Questionnaire Feeling of Stress : Not at all Social Connections: Socially Isolated (10/22/2022) Social Connection and Isolation Panel [NHANES] Frequency of Communication with Friends and Family: More than three times a week Frequency of Social Gatherings with Friends and Family: More than three times a week Attends Taoism Services: Never Active Member of Clubs or Organizations: No Attends Club or Organization Meetings: Never Marital Status: Interpersonal Safety: Not At Risk (12/15/2024) Humiliation, Afraid, Rape, and Kick questionnaire Fear of Current or Ex-Partner: No Emotionally Abused: No Physically Abused: No Sexually Abused: No Housing Instability: Low Risk (12/15/2024) Housing Instability Housing Instability: No Review of Systems: Review of Systems Constitutional: Negative for chills and fever. HENT: Negative for ear pain. Eyes: Negative for pain. Respiratory: Negative for shortness of breath. Hypoxia Cardiovascular: Negative for chest pain/discomfort. Gastrointestinal: Negative for abdominal pain, diarrhea, nausea and vomiting. Genitourinary: Negative for flank pain. Musculoskeletal: Negative for back pain. Skin: Negative for rash. Neurological: Negative for headaches. Psychiatric/Behavioral: Negative for sleep disturbance and suicidal ideas. Physical Exam: ED Triage Vitals [12/30/24 1504] Temp Heart Rate Resp BP SpO2 36.8 C (98.3 F) 76 22 112/60 (!) 85 % Temp Source Heart Rate Source Patient Position BP Location FiO2 (%) Oral Pulse Ox Sitting Left arm -- Vitals: 12/30/24 1504 12/30/24 1508 12/30/24 1531 12/30/24 1541 BP: 112/60 113/61 Temp: 36.8 C (98.3 F) TempSrc: Oral Pulse: 76 76 72 Resp: 22 12 20 SpO2: (!) 85% 90% 94% 100% Height: 154.9 cm (5' 1 ) Weight: 56.7 kg (125 lb) Physical Exam Pulmonary: Breath sounds: Examination of the right-middle field reveals rales. Examination of the left-middle field reveals rales. Examination of the right-lower field reveals rales. Examination of the left-lower field reveals rales. Rales present. Procedure: Procedures Re-evaluation: Re-Evaluation Medical Decision Making Plan of care - EKG, x-ray, labs, urine, DuoNeb, IV steroids Amount and/or Complexity of Data Reviewed Labs: ordered. Decision-making details documented in ED Course. Radiology: ordered. Decision-making details documented in ED Course. ECG/medicine tests: ordered. Decision-making details documented in ED Course. Risk Prescription drug management. ED Course: Clinical Impressions as of 12/30/24 1748 Acute cystitis without hematuria Hypoxia . ED Disposition None Shared/Split Visit 15:12 EDT Royal Rashid (fredaibe), scribed for and in the presence of: Dr Chris Pizano who performed the above service. IDr. Pizano personally performed a [id number] diagnostic evaluation on this patient. I personally made and approved the management plan for this patient and take responsibility for the patient management. Additional Notes/Findings: Jonatan Olivarez is a 64 y.o. female presenting to the ED for chief complaint of shortness of breath. Exam findings as follows: Constitutional: Awake and alert HENT: Head normocephalic and atraumatic Eyes: conjunctiva unremarkable Cardiovascular: Heart rate regular Pulmonary: Easy work of breathing, speaking full sentences, wheezes bilaterally Abdominal: Flat and non-distended Skin: Warm and dry Musculoskeletal: Moving all extremities spontaneously Neurological: No focal deficits Please note that portions of this note were completed with a voice recognition program. Efforts were made to edit the dictations but occasionally words are mis-transcribed. YOVANY Rebolledo 12/30/24 1511 Royal Cooper 12/30/24 1512 Royal Cooper 12/30/24 1519 Royal Cooper 12/30/24 1551 YOVANY Rebolledo 12/31/24 2126 [facility]10-01-2025 Emergency department Note* ELI Rebolledo CNP - 12/30/2024 3:09 PM EDT Images from the original note were not included. [facility] - EMERGENCY Pt Name: Jonatan Olivarez Birthdate: 1960 Chief Complaint: Chief Complaint Patient presents with Shortness of Breath EMS reports that pt was 72% 2L NC upon arrival at nursing facility. History of Present Illness: Savita Olivarez is a 64-year-old female that presents to ED via EMS from [facility] with complaint of hypoxia. Staff state that the patient has been having pulse ox readings in the 48 to 70% range today and yesterday. Patient is denying any shortness of breath or chest pain. She wears 2 L of oxygen via nasal cannula at baseline. EMS bumped her up to 6 L when they ar rived to the facility. They gave her a DuoNeb them bumped her back down to her baseline of 2 L. they were unable to give her any IV steroids as she refused IV access for them. Patient denies any nausea or or abdominal pain. Denies any fevers or sick contacts. History provided by: Patient and EMS personnel bilingual interpreter used: No Past Medical History: Past Medical History: Diagnosis Date ASHD (arteriosclerotic heart disease) Atherosclerosis of both carotid arteries CAD S/P percutaneous coronary angioplasty Claudication in peripheral vascular disease COPD (chronic obstructive pulmonary disease) ([facility]) Dental disease Diabetes mellitus ([facility]) Diabetes mellitus type 2, controlled ([facility]) Disease of thyroid gland Dizziness Emphysema of lung ([facility]) Hypertension Hypothyroidism Lower GI bleed 01/09/2024 Stable angina Ulcer left great toe Ventral hernia Visual impairment Past Surgical History: Past Surgical History: Procedure Laterality Date AORTO-BIFEMORAL BYPASS, VENTRAL HERNIA REPAIR, LEFT FEMORAL TO [id number] POPLITEAL BYPASS [id number] PTFE PROPATEN GORE VASCULAR GRAFT, AND COMPLETION ANGIOGRAM OF LEFT LOWER EXTREMITY Left 06/03/2017 Performed by Rebeca Johnson DO at [facility] CARD[facility]AC CATHETERIZATION Cardiac catheterization N/A 09/25/2022 Performed by Bonnie Toledo MD at [facility]ATH LABS CARDIAC SURGERY 2000 3 stents CHOLECYSTECTOMY Coronary angiogram and left ventricular gram/pressure N/A 09/25/2022 Performed by Bonnie Toledo MD at [facility] CATH LABS ESOPHAGOGASTRODUODENOSCOPY DIAGNOSTIC N/A 01/17/2024 Performed by Jazmine Gutierrez MD at [facility] ESOPHAGOGASTRODUODENOSCOPY DIAGNOSTIC N/A 01/10/2024 Performed by Renuka Angeles MD at [facility] FEMORAL BYPASS 2010 HYSTERECTOMY 2008 abdominal LYSIS RECHECK AND REMOVAL EXTREMITY UPPER Right 04/18/2024 Performed by Rebeca Johnson MD at [facility] SPECIAL PROC RIGHT BRACHIAL ACCESS, LEFT FEMORAL ANGIOGRAM, LYSIS CATHETER PLACEMENT Left 04/17/2024 Performed by Rebeca Johnson DO at [facility] SPECIAL PROC VASCULAR SURGERY 2008 blood clot removed/after hysterectomy/abdominal area Family History: Family History Problem Relation Age of Onset Anesthesia problems Neg Hx Social History: Social History Socioeconomic History Marital status: Tobacco Use Smoking status: Every Day Current packs/day: 0.50 Average packs/day: 0.5 packs/day for 40.0 years (20.0 ttl pk-yrs) Types: Cigarettes Smokeless tobacco: Never Tobacco comments: needs a nicotine patch upon arrival Vaping Use Vaping status: Never Used Substance and Sexual Activity Alcohol use: No Drug use: No Sexual activity: Defer Social Drivers of Health Financial Resource Strain: High Risk (07/13/2024) Overall Financial Resource Strain (CARDIA) Difficulty of Paying Living Expenses: Hard Food Insecurity: No Food Insecurity (12/30/2024) Hunger Screening Food Insecurity - Worry: Never True Food Insecurity - Inability: Never True Transportation Needs: No Transportation Needs (12/15/2024) PRAPARE - Transportation Lack of Transportation (Medical): No Lack of Transportation (Non-Medical): No Recent Concern: Transportation Needs - Unmet Transportation Needs (10/22/2024) Received from [facility] PRAPARE - Transportation Lack of Transportation (Medical): Yes Lack of Transportation (Non-Medical): Yes Physical Activity: Inactive (10/22/2022) Exercise Vital Sign Days of Exercise per Week: 0 days Minutes of Exercise per Session: 0 min Stress: No Stress Concern Present (10/22/2022) [place] [employer] - Occupational Stress Questionnaire Feeling of Stress : Not at all Social Connections: Socially Isolated (10/22/2022) Social Connection and Isolation Panel [NHANES] Frequency of Communication with Friends and Family: More than three times a week Frequency of Social Gatherings with Friends and Family: More than three times a week Attends Taoism Services: Never Active Member of Clubs or Organizations: No Attends Club or Organization Meetings: Never Marital Status: Interpersonal Safety: Not At Risk (12/15/2024) Humiliation, Afraid, Rape, and Kick questionnaire Fear of Current or Ex-Partner: No Emotionally Abused: No Physically Abused: No Sexually Abused: No Housing Instability: Low Risk (12/15/2024) Housing Instability Housing Instability: No Review of Systems: Review of Systems Constitutional: Negative for chills and fever. HENT: Negative for ear pain. Eyes: Negative for pain. Respiratory: Negative for shortness of breath. Hypoxia Cardiovascular: Negative for chest pain/discomfort. Gastrointestinal: Negative for abdominal pain, diarrhea, nausea and vomiting. Genitourinary: Negative for flank pain. Musculoskeletal: Negative for back pain. Skin: Negative for rash. Neurological: Negative for headaches. Psychiatric/Behavioral: Negative for sleep disturbance and suicidal ideas. Physical Exam: ED Triage Vitals [12/30/24 1504] Temp Heart Rate Resp BP SpO2 36.8 C (98.3 F) 76 22 112/60 (!) 85 % Temp Source Heart Rate Source Patient Position BP Location FiO2 (%) Oral Pulse Ox Sitting Left arm -- Vitals: 12/30/24 1504 12/30/24 1508 12/30/24 1531 12/30/24 1541 BP: 112/60 113/61 Temp: 36.8 C (98.3 F) TempSrc: Oral Pulse: 76 76 72 Resp: 22 12 20 SpO2: (!) 85% 90% 94% 100% Height: 154.9 cm (5' 1 ) Weight: 56.7 kg (125 lb) Physical Exam Pulmonary: Breath sounds: Examination of the right-middle field reveals rales. Examination of the left-middle field reveals rales. Examination of the right-lower field reveals rales. Examination of the left-lower field reveals rales. Rales present. Procedure: Procedures Re-evaluation: Re-Evaluation Medical Decision Making Plan of care - EKG, x-ray, labs, urine, DuoNeb, IV steroids Amount and/or Complexity of Data Reviewed Labs: ordered. Decision-making details documented in ED Course. Radiology: ordered. Decision-making details documented in ED Course. ECG/medicine tests: ordered. Decision-making details documented in ED Course. Risk Prescription drug management. ED Course: Clinical Impressions as of 12/30/24 1748 Acute cystitis without hematuria Hypoxia . ED Disposition None Shared/Split Visit 15:12 EDT Royal Rashid (antonina), scribed for and in the presence of: Dr Chris Pizano who performed the above service. I, Dr. Pizano personally performed a [id number] diagnostic evaluation on this patient. I personally made and approved the management plan for this patient and take responsibility for the patient management. Additional Notes/Findings: Jonatan Olivarez is a 64 y.o. female presenting to the ED for chief complaint of shortness of breath. Exam findings as follows: Constitutional: Awake and alert HENT: Head normocephalic and atraumatic Eyes: conjunctiva unremarkable Cardiovascular: Heart rate regular Pulmonary: Easy work of breathing, speaking full sentences, wheezes bilaterally Abdominal: Flat and non-distended Skin: Warm and dry Musculoskeletal: Moving all extremities spontaneously Neurological: No focal deficits Please note that portions of this note were completed with a voice recognition program. Efforts were made to edit the dictations but occasionally words are mis-transcribed. YOVANY Rebolledo 12/30/24 1511 Royal Cooper 12/30/24 1512 Royal Cooper 12/30/24 1519 Royal Cooper 12/30/24 1551 YOVANY Rebolledo 12/31/246 [facility] Telephone encounter Note* Telephone Encounter - Vik Vargas NP - 12/21/2024 11:56 AM EDT Requested Prescriptions Signed Prescriptions Disp Refills oxyCODONE-acetaminophen (Percocet) 5-325 MG tablet 120 tablet 0 Sig: Take 1 tablet by mouth every 6 (six) hours if needed for severe pain or moderate pain Authorizing Provider: VIK VARGAS [facility] [id number] Miscellaneous Notes* Telephone Encounter - Vik Vargas NP - 12/21/2024 11:56 AM EDT Requested Prescriptions Signed Prescriptions Disp Refills oxyCODONE-acetaminophen (Percocet) 5-325 MG tablet 120 tablet 0 Sig: Take 1 tablet by mouth every 6 (six) hours if needed for severe pain or moderate pain Authorizing Provider: VIK VARGAS documented in this encounterGolden Valley [facility] [id number] History of Present illness Narrative* aZch Saravia, DAVID - 12/08/2024 7:02 PM EDTSummary: Podiatric consultation. Podiatric consultation. Patient assessed and evaluated for multiple ulcerations involving both feet, specifically bilateralheel; lateral right forefoot; left great toe and 2nd digit left foot. Patient indicates that most of these wounds have been present for greater than 1 year duration, with history of skin and soft tissue infection, effectively treated with both oral and IV antibiotic therapy. Recently admitted through [facility] ED with developing infection involving multiple wounds. Patient relates no recent injury or trauma. Describes some discomfort at times, but indicates that her feet generally have a numb sensation most of the time, recently somewhat more progressive. History includes type II diabetes. Cigarette smoking history greater than 40 years; currently 3 or 4 cigarettes daily. Clinical exam: Patient is alert and oriented. Pleasant disposition. Vascular status: Pulses are faintly palpable. CFT remains fairly brisk all digits; which are cool to the touch. Dysvascular skin changes are appreciated. Neurologic status: Tactile and light touch sensation diminished. Sharp sensation appears intact. Focused exam left foot: Left great toe: Delvalle stage II ulceration plantar surface of the digit just proximal to the IP joint line. Well hydrated granular wound bed with moderate amount of serous drainage. Unremarkable for pustular drainage. There is no exposed deep fascia or bone. Does not probe to bone. The margins are raised, fibrotic and hyperkeratotic. Soft tissue envelope adequately perfused without ischemic necrosis. Post-debridement measurements: 0.6 x 0.6 x 0.2 cm. 2nd Digit left foot: Delvalle stage III full-thickness wound distal aspect of the digit; with exposeddistal phalanx. There is a small amount of pustular drainage without malodor. Initial appearance ishyperkeratotic laced with dried eschar tissue; width raised hyperkeratotic and fibrotic margins. Noacute ischemic necrosis is noted. Post-debridement measurements: 2.0 x 0.7 x 0.4 cm. Full-thickness decubitus ulcerations of both heels with dressings in place. Full-thickness decubitus ulceration overlying 5th metatarsal condyle right foot with dressing in place. Radiographs: Osteolysis of the distal phalanx of the 2nd digit left foot. MRI: Abnormal enhancement of the distal phalanx of the 2nd digit left foot; with enhancement abnormality of the left hallux as well. Labs: Left shift appreciated. Impression: Edlvalle stage III neuropathic ulceration 2nd digit left foot with direct extension chronic osteomyelitis of the distal phalanx ; with MRI and x-ray changes. Delvalle stage II neuropathic ulceration plantar surface left great toe; suspect for direct extensionosteomyelitis, without x-ray changes. Full-thickness decubitus ulceration bilateral heels. Full-thickness decubitus ulceration lateral surface right forefoot. Type II diabetes. Diabetic peripheral neuropathy. Diabetic peripheral vasculopathy. Chronic cigarette smoking. Recommendations: Relative to the left hallux and 2nd digit; begin saline damp to dry dressings oncedaily status post debridement. Recommend collagenase with dampened saline gauze dressings daily. Offloading measures already instituted. Continue IV antibiotic therapy. Relative to the 2nd digit left foot: I will follow the patient on an outpatient basis; a distal Syme's amputation may be indicated. I suspect the osseous changes are chronic And generally stable at this time. Procedure: aseptic technique: left foot: Hallux and 2nd digit : Sharp, active, selective, full-thickness excisional debridement of both wounds; to the level of actively bleeding subcutaneous granulartissue; excising devitalized, dystrophic, non- viable, fibrotic and hyperkeratotic tissue; reducingwound bioburden and contamination.. Recommend Darco shoe bilateral for ambulation and weight- bearing activities; with walker assist. Thank you for allowing my participation in the care of this patient. documented in this encounterUC [facility] Hospital Discharge instructions* Discharge Instructions* Filomena De La Garza, HILDA - TRUST ADMINISTRATOR - 11/19/2024 4:14 PM EDT Additional medications as directed, you need to call both your primary care and wound care clinic for further evaluation and treatment. * Attachments The following attachments cannot be sent through Care Everywhere. * Hip Pain (Uruguayan) * Chronic Wound: Healing: General Info (Uruguayan) documented in this encounterBon [facility] [place] History of Present illness Narrative* Erin Stevens RN - 08/17/2024 12:12 PM EDT Patient leaving floor at this time via [facility] via wheelchair. Belongings sent with patient. * Erin Stevens RN - 08/17/2024 11:28 AM EDT Report called to nurse at [facility] at this time. * Erin Stevens RN - 08/17/2024 6:47 AM EDT Shift assessment and vitals obtained at this time as charted, see flowsheets. Patient is complaining of 8 out of 10 pain at this time but is not due for pain medication yet. Patient is alert and oriented x4. Lung sounds clear to diminished throughout with occasional nonproductive cough noted. Wounds to bilateral feet are all open to air at this time. Assessment otherwise as charted, see flowsheets. Patient also assisted up to the bedside commode at this time and had a bowel movement and then was assisted back to the bed. Patient resting in the bed with bed alarm on and call light in reach, denies other needs at this time. Care ongoing. * Yanira Aguirre RN - 08/16/2024 6:35 PM EDT Vitals and assessment were completed at this time. Ladle Operator walked patient through the medications that would be administered tonight and encouraged patient to ask questions about the medications and therapies. Patient is requesting all of her night medications be given at 1999 including percocet andAmbien. Patient ambulated to the bathroom and back to bed and chief writer put iodine on her foot wounds early per request. Call light and bedside table remain within reach. Patient denies needs at this time. Care ongoing. * Cyndee Claudio RN - 08/16/2024 8:02 AM EDT Assessment completed with pt sitting in chair. Appetite good. Remains on baseline oxygen supplementation at 2 liters. Ambulating in room with wheeled walker and SBA. Call light in reach. * Osmar Rodriguez MD - 08/16/2024 6:53 AM EDT [address] , [place], [place], [address] Progress Note Date: 08/16/2024 Patient name: Jonatan Olivarez Date of admission: 08/12/2024 10:20 AM Date of : 1960 SUBJECTIVE/Last 24 hours update: Patient seen and examined at the bed side , no new acute events overnight and, no new complains noted. VSS, afebrile. Tolerating wound dressings well. Pain is under better control. Notes from nursingstaff and Consults had been reviewed, and the overnight progress had been checked with the nursing staff as well. REVIEW OF SYSTEMS: CONSTITUTIONAL: no fevers, no headcahes EYES: negative for blury vision HEENT: No headaches, No nasal congestion, no difficulty swallowing RESPIRATORY:negative for dyspnea, no wheezing, no Cough CARDIOVASCULAR: negative for chest pain, no palpitations GASTROINTESTINAL: no nausea, no vomiting, no change in bowel habits, no abdominal pain GENITOURINARY: negative for dysuria, no hematuria MUSCULOSKELETAL: no joint pains, no muscle aches, no swelling of joints or extremities NEUROLOGICAL: No Weakness or numbness Wounds of both legs with pain PAST MEDICAL HISTORY: has a past medical history of Asthma, Back problem, CAD (coronary artery disease), COPD (chronic obstructive pulmonary disease) ([facility]), Depression, Diabetes mellitus ([facility]), Edema, H/O cardiac catheterization, H/O echocardiogram, Hernia of abdominal wall, History of cardiac cath, History of cardiac cath, History of cardiovascular stress test, History of echocardiogram, History of stress test, Hx ofblood clots, Hypertension, Hypothyroidism, Leg pain, bilateral, and Wears partial dentures. PAST SURGICAL HISTORY: has a past surgical history that includes Cholecystectomy; Hysterectomy; femoral bypass; Cardiac surgery; Cardiac catheterization; vascular surgery; Aorta surgery (05/2016); and Cardiac catheterization (Left, 02/25/2018). SOCIAL HISTORY: reports that she has been smoking cigarettes. She has a 40 pack-year smoking history. She has neverused smokeless tobacco. She reports that she does not drink alcohol and does not use drugs. TOBACCO: reports that she has been smoking cigarettes. She has a 40 pack-year smoking history. She has never used smokeless tobacco. ETOH: reports no history of alcohol use. Reviewed and non-contributory or as noted above and/or in the HPI FAMILY HISTORY: family history includes Diabetes in an other family member; Emphysema in her mother; Heart Attack (age of onset: 67) in her father; Heart Disease in her father. Problem Relation Age of Onset Emphysema Mother Heart Disease Father Heart Attack Father 67 Diabetes Other Reviewed and non-contributory or as noted above and/or in the HPI HOME MEDICATIONS: Prior to Admission medications Medication Sig Start Date End Date Taking? Authorizing Provider pioglitazone (ACTOS) 45 MG tablet Take 1 tablet by mouth daily Yes ProviderSaran MD lidocaine viscous hcl (XYLOCAINE) 2 % SOLN solution Take 15 mLs by mouth 4 times daily as needed Along with Diphenhydramine and antacid 07/21/24 Yes Saran Shoemaker MD amoxicillin-clavulanate (AUGMENTIN) 875-125 MG per tablet Take 1 tablet by mouth 2 times daily for 14 days 08/10/24 08/24/24 Yes Oliva Dunlap APRN - FABIENNE povidone-iodine (BETADINE) 10 % external solution Apply to wounds of legs, feet and toes daily. Letdry and cover with dry dressings 08/10/24 08/17/24 Yes Oliva Mack APRN - FABIENNE apixaban (ELIQUIS) 5 MG TABS tablet Take 1 tablet by mouth daily 07/27/24 Yes Osmar Rodriguez MD zolpidem (AMBIEN) 10 MG tablet Take 1 tablet by mouth nightly as needed for Sleep for up to 30 days. Max Daily Amount: 10 mg 07/27/24 08/26/24 Yes Osmar Rodriguez MD methocarbamol (ROBAXIN) 750 MG tablet Fill when due. OARS/PMDP reviewed. take 1 tablet by mouth four times a day - MORNING, NOON, EVENING AND BEDTIME 07/27/24 Yes Osmar Rodriguez MD oxyCODONE-acetaminophen (PERCOCET) 7.5-325 MG per tablet Take 1 tablet by mouth every 6 hours as needed for Pain for up to 30 days. Fill when due. OARS/PMDP reviewed. Intended supply: 30 days Max Daily Amount: 4 tablets 07/27/24 08/26/24 Yes Osmar Rodriguez MD chlorhexidine (PERIDEX) 0.12 % solution swish and spit 15ml BY MOUTH TWICE DAILY 07/22/24 Yes Osmar Rodriguez MD Magic Mouthwash (MIRACLE MOUTHWASH) Swish and swallow 15 mLs 4 times daily as needed for IrritationShake Well; For Oral Use. Lidocaine Viscous 2%; 80mL, Diphenhydramine 12.5MG/5Ml; 80mL, ALUM & MAG HYDROXIDE-SIMETH 200-200-20 MG/5ML; 80mL. 07/21/24 Yes Osmar Rodriguez MD amLODIPine (NORVASC) 10 MG tablet Take 1 tablet by mouth daily 06/24/24 Yes Osmar Rodriguez MD levothyroxine (SYNTHROID) 150 MCG tablet Take 1 tablet by mouth every morning 06/24/24 Yes Osmar Rodriguez MD ammonium lactate (LAC-HYDRIN) 12 % lotion Apply topically as needed. 06/15/24 Yes Osmar Rodriguez MD metoprolol succinate (TOPROL XL) 25 MG extended release tablet Take 1 tablet by mouth daily 06/01/24 Yes Osmar Rodriguez MD gabapentin (NEURONTIN) 800 MG tablet Take 1 tablet by mouth 3 times daily for 90 days. 04/30/24 08/12/24 Yes Osmar Rodriguez MD nitroGLYCERIN (NITROSTAT) 0.[address] 1 tablet under the tongue every 5 minutes as needed for Chest pain up to max of 3 total doses. If no relief after 1 dose, call 911. 02/19/24 Yes Osmar Rodriguez MD pantoprazole (PROTONIX) 40 MG tablet Take 1 tablet by mouth daily 02/06/24 Yes Osmar Rodriguez MD isosorbide mononitrate (IMDUR) 60 MG extended release tablet Take 1 tablet by mouth daily 02/06/24 Yes Osmar Rodriguez MD losartan (COZAAR) 100 MG tablet Take 1 tablet by mouth daily 02/06/24 Yes Osmar Rodriguez MD albuterol sulfate HFA (PROVENTIL;VENTOLIN;PROAIR) 108 (90 Base) MCG/ACT inhaler inhale 2 puffs by mouth and INTO THE LUNGS four times a day if needed for wheezing 02/06/24 Yes Osmar Rodriguez MD budesonide-formoterol (SYMBICORT) 160-4.5 MCG/ACT AERO Inhale 2 puffs into the lungs 2 times daily 02/06/24 Yes Osmar Rodriguez MD pravastatin (PRAVACHOL) 40 MG tablet Take 1 tablet by mouth daily 02/06/24 Yes Osmar Rodriguez MD aspirin (ASPIRIN LOW DOSE) 81 MG chewable tablet Take 1 tablet by mouth daily 04/12/23 Yes Osmar Rodriguez MD albuterol (PROVENTIL) (2.5 MG/3ML) 0.083% nebulizer solution Take 3 mLs by nebulization every 6 hours as needed for Wheezing or Shortness of Breath 12/31/22 Yes Patricia Oh, [employer] - TRUST ADMINISTRATOR FLOVENT HFA 44 MCG/ACT inhaler Inhale 2 puffs into the lungs 2 times daily 12/18/22 Yes Osmar Rodriguez MD metFORMIN (GLUCOPHAGE) 500 MG tablet Take 1 tablet by mouth 2 times daily (with meals) Patient not taking: Reported on 08/12/2024 08/10/24 Oliva Dunlap, INSPECT[employer] - TRUST ADMINISTRATOR docusate sodium (COLACE) 100 MG capsule Take 1 capsule by mouth 2 times daily as needed for Constipation Patient not taking: Reported on 08/12/2024 02/06/24 Osmar Rodriguez MD tiotropium (SPIRIVA HANDIHALER) 18 MCG inhalation capsule Inhale 1 capsule into the lungs daily Patient taking differently: Inhale 1 capsule into the lungs daily as needed 02/06/24 Osmar Rodriguez MD Blood Pressure KIT 1 kit by Does not apply route daily 10/18/23 Osmar Rodriguez MD Incontinence Supplies MISC Use as directed for incontinence 10/23/22 Osmar Rodriguez MD vitamin D (ERGOCALCIFEROL) 1.25 MG (07465 UT) CAPS capsule take 1 capsule by mouth every week Patient not taking: Reported on 08/12/2024 10/22/22 Osmar Rodriguez MD Incontinence Supply Disposable (Oncopeptides INCONTINENCE PADS) MISC 1 each by Does not apply route 4 times daily as needed (incontinence) 09/21/22 10/29/22 Osmar Rodriguez MD ALLERGIES: Cyclobenzaprine, Levofloxacin, Nickel, Regadenoson, Environmental/seasonal, Trazodone and nefazodone, Zithromax [azithromycin], Cefaclor, and Simvastatin OBJECTIVE: Vitals: 08/15/24 2106 08/15/24 2136 08/16/24 0425 08/16/24 0500 BP: Pulse: Resp: 15 16 16 Temp: TempSrc: SpO2: Weight: 55.8 kg (123 lb) Height: Intake/Output Summary (Last 24 hours) at 08/16/2024 0654 Last data filed at 08/16/2024 0518 Gross per 24 hour Intake 1760 ml Output 700 ml Net 1060 ml PHYSICAL EXAM: General Appearance Alert , awake , not in acute distress HEENT - Head is normocephalic, atraumatic. Lungs - Bilateral equal air entry , no wheezes, rales or rhonchi, aeration good Cardiovascular - Heart sounds are normal. Regular rhythm, normal rate without murmur, gallop or rub. Abdomen - Soft, nontender, nondistended, no masses or organomegaly Neurologic - There are no new focal motor or sensory deficits Skin - No bruising or bleeding on exposed skin area Extremities - No cyanosis, clubbing or edema, noted sores on both lower extremities, dressings are cdi, sores have betadine DIAGNOSTICS: Laboratory Testing: See [facility] EMR for lab data Recent Results (from the past 24 hours) Basic Metabolic Panel w/ Reflex to MG Collection Time: 08/16/24 5:40 AM Result Value Ref Range Sodium 135 (L) 136 - 145 mmol/L Potassium 4.7 3.7 - 5.3 mmol/L Chloride 96 (L) 98 - 107 mmol/L CO2 31 20 - 31 mmol/L Anion Gap 8 (L) 9 - 16 mmol/L Glucose 100 (H) 74 - 99 mg/dL BUN 13 8 - 23 mg/dL Creatinine 0.8 0.50 - 0.90 mg/dL Est, Glom Filt Rate 84 >60 mL/min/1.73m2 BUN/Creatinine Ratio 16 9 - 20 Calcium 8.8 8.6 - 10.4 mg/dL CBC auto differential Collection Time: 08/16/24 5:40 AM Result Value Ref Range WBC 6.9 3.5 - 11.3 k/uL RBC 4.00 3.95 - 5.11 m/uL Hemoglobin 10.3 (L) 11.9 - 15.1 g/dL Hematocrit 34.7 (L) 36.3 - 47.1 % MCV 86.8 82.6 - 102.9 fL MCH 25.8 25.2 - 33.5 pg MCHC 29.7 28.4 - 34.8 g/dL RDW 18.3 (H) 11.8 - 14.4 % Platelets 362 138 - 453 k/uL MPV 8.9 8.1 - 13.5 fL NRBC Automated 0.0 0.0 per 100 WBC Neutrophils % 67 (H) 36 - 65 % Lymphocytes % 16 (L) 24 - 43 % Monocytes % 11 3 - 12 % Eosinophils % 5 (H) 1 - 4 % Basophils % 1 0 - 2 % Immature Granulocytes % 0 0 % Neutrophils Absolute 4.58 1.50 - 8.10 k/uL Lymphocytes Absolute 1.10 1.10 - 3.70 k/uL Monocytes Absolute 0.77 0.10 - 1.20 k/uL Eosinophils Absolute 0.36 0.00 - 0.44 k/uL Basophils Absolute 0.10 0.00 - 0.20 k/uL Immature Granulocytes Absolute <0.03 0.00 - 0.30 k/uL Current Facility-Administered Medications Medication Dose Route Frequency Provider Last Rate Last Admin multivitamin 1 tablet 1 tablet Oral Daily Osmar Rodriguez MD 1 tablet at 08/15/24 08 empagliflozin (JARDIANCE) tablet 10 mg 10 mg Oral Daily Osmar Rodriguez MD 10 mg at 08/15/24 0808 oxyCODONE-acetaminophen (PERCOCET) 10-325 MG per tablet 1 tablet 1 tablet Oral Q4H PRN Osmar Rodriguez MD 1 tablet at 08/16/24 0355 ferrous sulfate (IRON 325) tablet 325 mg 325 mg Oral Daily with breakfast Osmar Rodriguez MD iron sucrose (VENOFER) 200 mg in sodium chloride 0.9 % 100 mL IVPB 200 mg IntraVENous Q24H Osmar Rodriguez MD Stopped at 08/15/24 174 benzonatate (TESSALON) capsule 200 mg 200 mg Oral TID Osmar Rodriguez MD 200 mg at 08/15/242020 gabapentin (NEURONTIN) capsule 600 mg 600 mg Oral TID Oliva Dunlap APRN - CNP 600 mg at 08/15/242020 vitamin D (ERGOCALCIFEROL) capsule 50,000 Units 50,000 Units Oral Weekly Oliva Mack APRN - CNP albuterol (PROVENTIL) (2.5 MG/3ML) 0.083% nebulizer solution 2.5 mg 2.5 mg Nebulization Q6H PRN Oliva Dunlap APRN - CNP aspirin chewable tablet 81 mg 81 mg Oral Daily Oliva Dunlap APRN - CNP 81 mg at 08/15/24 08 docusate sodium (COLACE) capsule 100 mg 100 mg Oral BID PRN Oliva Dunlap APRN - CNP pantoprazole (PROTONIX) tablet 40 mg 40 mg Oral Daily Oliva Dunlap APRN - CNP 40 mg at08/15/24 0807 isosorbide mononitrate (IMDUR) extended release tablet 60 mg 60 mg Oral Daily Oliva Dunlap APRN - CNP 60 mg at 08/15/24 08 losartan (COZAAR) tablet 100 mg 100 mg Oral Daily Oliva Dunlap APRN - CNP 100 mg at 08/15/24 0807 budesonide-formoterol (SYMBICORT) 160-4.5 MCG/ACT inhaler 2 puff 2 puff Inhalation BID Oliva Dunlap APRN - CNP 2 puff at 08/15/242026 pravastatin (PRAVACHOL) tablet 40 mg 40 mg Oral Daily Oliva Dunlap APRN - CNP 40 mg at08/15/24 08 nitroGLYCERIN (NITROSTAT) SL tablet 0.4 mg 0.4 mg SubLINGual Q5 Min PRN Oliva Mack APRN - CNP metoprolol succinate (TOPROL XL) extended release tablet 25 mg 25 mg Oral Daily Oliva Dunlap APRN - CNP 25 mg at 08/15/24 08 amLODIPine (NORVASC) tablet 10 mg 10 mg Oral Daily Oliva Dunlap APRN - CNP 10 mg at 08/15/24 08 levothyroxine (SYNTHROID) tablet 150 mcg 150 mcg Oral QAM Oliva Dunlap APRN - CNP 150 mcg at 08/15/24 0808 magic mouthwash 15 mL 15 mL Oral 4x Daily PRN Oliva Dunlap APRN - CNP chlorhexidine (PERIDEX) 0.12 % solution 15 mL 15 mL Mouth/Throat BID Oliva Mack APRN- CNP 15 mL at 08/15/242021 apixaban (ELIQUIS) tablet 5 mg 5 mg Oral Daily Oliva Dunlap APRN - CNP 5 mg at 08/15/242020 zolpidem (AMBIEN) tablet 10 mg 10 mg Oral Nightly PRN Oliva Dunlap APRN - CNP 10 mg at08/15/242105 methocarbamol (ROBAXIN) tablet 750 mg 750 mg Oral 4x Daily Oliva Dunlap APRN - TRUST ADMINISTRATOR 750mg at 08/15/241921 benzonatate (TESSALON) capsule 200 mg 200 mg Oral TID PRN Oliva Dunlap APRN - CNP 200 mg at 08/14/242006 amoxicillin-clavulanate (AUGMENTIN) 875-125 MG per tablet 1 tablet 1 tablet Oral BID Oliva Dunlap APRN - CNP 1 tablet at 08/15/242020 povidone-iodine (BETADINE) 10 % external solution Topical Daily Oliva Dunlap APRN - CNP Given at 08/15/242109 pioglitazone (ACTOS) tablet 45 mg 45 mg Oral Daily Osmar Rodriguez MD 45 mg at 08/15/24 08 sodium chloride flush 0.9 % injection 10 mL 10 mL IntraVENous 2 times per day Oliva Dunlap APRN - CNP 10 mL at 08/15/241924 sodium chloride flush 0.9 % injection 10 mL 10 mL IntraVENous PRN Oliva Dunlap APRN - CNP 0.9 % sodium chloride infusion IntraVENous PRN Oliva Dunlap APRN - CNP potassium chloride (KLOR-CON M) extended release tablet 40 mEq 40 mEq Oral PRN Oliva Dunlap APRN - CNP Or potassium bicarb-citric acid (EFFER-K) effervescent tablet 40 mEq 40 mEq Oral PRN Oliva Dunlap APRN - CNP Or potassium chloride 10 mEq/100 mL IVPB (Peripheral Line) 10 mEq IntraVENous PRN Oliva Dunlap APRN - CNP ondansetron (ZOFRAN-ODT) disintegrating tablet 4 mg 4 mg Oral Q8H PRN Oliva Mack APRN - CNP Or ondansetron (ZOFRAN) injection 4 mg 4 mg IntraVENous Q6H PRN Oliva Dunlap APRN - CNP polyethylene glycol (GLYCOLAX) packet 17 g 17 g Oral Daily PRN Oliva Dunlap APRN - CNP acetaminophen (TYLENOL) tablet 650 mg 650 mg Oral Q6H PRN Oliva Dunlap APRN - CNP Or acetaminophen (TYLENOL) suppository 650 mg 650 mg Rectal Q6H PRN Oliva Dunlap APRN - CNP magnesium sulfate 2000 mg in 50 mL IVPB premix 2,000 mg IntraVENous PRN Oliva Mack APRN - CNP nicotine (NICODERM CQ) 21 MG/24HR 1 patch 1 patch TransDERmal Daily Oliva Mack APRN - CNP 1 patch at 08/15/24 08 albuterol sulfate HFA (PROVENTIL;VENTOLIN;PROAIR) 108 (90 Base) MCG/ACT inhaler 2 puff 2 puff Inhalation TID RT Osmar Rodriguez MD 2 puff at 08/15/242025 tiotropium (SPIRIVA RESPIMAT) 2.5 MCG/ACT inhaler 2 puff 2 puff Inhalation Daily RT Oliva Dunlap APRN - CNP 2 puff at 08/15/24 0857 ASSESSMENT: Principal Problem: Unable to care for self Active Problems: Diabetic ulcer of toe of left foot associated with type 2 diabetes mellitus, with fat layer exposed(HCC) Chronic pain syndrome Claudication in peripheral vascular disease Diabetic ulcer of left heel associated with type 2 diabetes mellitus, with fat layer exposed (HCC) Oxygen dependent - 2L per baseline Resolved Problems: * No resolved hospital problems. * PLAN: Primary Problem(s): Unable to care for self Condition is at treatment goal Treatment plan: Continue current treatment Imaging: no further imaging studies ordered today Medications: Continue current meds Medication Monitoring / High Risk Medications: none Augmentin to be continued Local wound care per Podiatry Further OP w/u with Vascular Monitor labs Venofer given anemia Multivitamin, Wilner for wounds/healing Dispo pending insurance approval. DVT prophylaxis: She is on eliquis GI prophylaxis: PPI Above plan discussed with the patient who agreed to the above plan Discussed care plan with nurse after getting their input. Please note that this chart was generated using voice recognition [employer]on dictation software. Although every effort was made to ensure the accuracy of this automated skidder lever operator, some errors in skidder lever operator may have occurred. Osmar Rodriguez MD 08/16/2024 6:54 AM * Yanira Aguirre RN - 08/16/2024 5:41 AM EDT Patient declined having her water jug refilled. She told chief writer she doesn't drink water. Ladle Operator refilled patient's coffee cup per request. * Yanira Aguirre RN - 08/15/2024 9:10 PM EDT Ladle Operator used saline to remove the gauze on patient's feet. Iodine was put on all of her foot wounds and they were left open to air, per order. * Yanira Aguirre RN - 08/15/2024 7:22 PM EDT Vitals and assessment were completed at this time. Ladle Operator walked patient through the medications that would be administered tonight and encouraged patient to ask questions about the medications and therapies. Patient requested her pain pills malini. She is aware when her next percocet is due. Patientlays in odd positions in the bed, folding over her lap and to the sides of the bed and this is normal per pt. She did request all 4 bed rails be up. Patient ambulated to the bathroom and back to bed. Call light and bedside table remain within reach. Patient denies needs at this time. Care ongoing. * Osmar Rodriguez MD - 08/15/2024 6:28 AM EDT Images from the original note were not included. [address] , [place], [place], [address] Progress Note Date: 08/15/2024 Patient name: Jonatan Olivarez Date of admission: 08/12/2024 10:20 AM Date of : 1960 SUBJECTIVE/Last 24 hours update: Patient seen and examined at the bed side , no new acute events overnight except that the dressingswere noted to have gotten removed at times. No new complains except for her ongoing pain for the ulcerations which is not under good control. Pain is rated up to 10/10 after 4 hours. No n/v/d. Notes from nursing staff and Consults had been reviewed, and the overnight progress had been checked with t nursing staff as well. REVIEW OF SYSTEMS: CONSTITUTIONAL: no fevers, no headcahes EYES: negative for blury vision HEENT: No headaches, No nasal congestion, no difficulty swallowing RESPIRATORY:negative for dyspnea, no wheezing, no Cough CARDIOVASCULAR: negative for chest pain, no palpitations GASTROINTESTINAL: no nausea, no vomiting, no change in bowel habits, no abdominal pain GENITOURINARY: negative for dysuria, no hematuria MUSCULOSKELETAL: no joint pains, no muscle aches, no swelling of joints or extremities NEUROLOGICAL: No Weakness or numbness Sores on both legs PAST MEDICAL HISTORY: has a past medical history of Asthma, Back problem, CAD (coronary artery disease), COPD (chronic obstructive pulmonary disease) ([facility]), Depression, Diabetes mellitus ([facility]), Edema, H/O cardiac catheterization, H/O echocardiogram, Hernia of abdominal wall, History of cardiac cath, History of cardiac cath, History of cardiovascular stress test, History of echocardiogram, History of stress test, Hx ofblood clots, Hypertension, Hypothyroidism, Leg pain, bilateral, and Wears partial dentures. PAST SURGICAL HISTORY: has a past surgical history that includes Cholecystectomy; Hysterectomy; femoral bypass; Cardiac surgery; Cardiac catheterization; vascular surgery; Aorta surgery (05/2016); and Cardiac catheterization (Left, 02/25/2018). SOCIAL HISTORY: reports that she has been smoking cigarettes. She has a 40 pack-year smoking history. She has neverused smokeless tobacco. She reports that she does not drink alcohol and does not use drugs. TOBACCO: reports that she has been smoking cigarettes. She has a 40 pack-year smoking history. She has never used smokeless tobacco. ETOH: reports no history of alcohol use. Reviewed and non-contributory or as noted above and/or in the HPI FAMILY HISTORY: family history includes Diabetes in an other family member; Emphysema in her mother; Heart Attack (age of onset: 67) in her father; Heart Disease in her father. Problem Relation Age of Onset Emphysema Mother Heart Disease Father Heart Attack Father 67 Diabetes Other Reviewed and non-contributory or as noted above and/or in the HPI HOME MEDICATIONS: Prior to Admission medications Medication Sig Start Date End Date Taking? Authorizing Provider pioglitazone (ACTOS) 45 MG tablet Take 1 tablet by mouth daily Yes Saran Shoemaker MD lidocaine viscous hcl (XYLOCAINE) 2 % SOLN solution Take 15 mLs by mouth 4 times daily as needed Along with Diphenhydramine and antacid 07/21/24 Yes Saran Shoemaker MD amoxicillin-clavulanate (AUGMENTIN) 875-125 MG per tablet Take 1 tablet by mouth 2 times daily for 14 days 08/10/24 08/24/24 Yes Oliva Dunlap APRN - CNP povidone-iodine (BETADINE) 10 % external solution Apply to wounds of legs, feet and toes daily. Letdry and cover with dry dressings 08/10/24 08/17/24 Yes Oliva Mack APRN - CNP apixaban (ELIQUIS) 5 MG TABS tablet Take 1 tablet by mouth daily 07/27/24 Yes Osmar Rodriguez MD zolpidem (AMBIEN) 10 MG tablet Take 1 tablet by mouth nightly as needed for Sleep for up to 30 days. Max Daily Amount: 10 mg 07/27/24 08/26/24 Yes Osmar Rodriguez MD methocarbamol (ROBAXIN) 750 MG tablet Fill when due. OARS/PMDP reviewed. take 1 tablet by mouth four times a day - MORNING, NOON, EVENING AND BEDTIME 07/27/24 Yes Osmar Rodriguez MD oxyCODONE-acetaminophen (PERCOCET) 7.5-325 MG per tablet Take 1 tablet by mouth every 6 hours as needed for Pain for up to 30 days. Fill when due. OARS/PMDP reviewed. Intended supply: 30 days Max Daily Amount: 4 tablets 07/27/24 08/26/24 Yes Osmar Rodriguez MD chlorhexidine (PERIDEX) 0.12 % solution swish and spit 15ml BY MOUTH TWICE DAILY 07/22/24 Yes Osmar Rodriguez MD Magic Mouthwash (MIRACLE MOUTHWASH) Swish and swallow 15 mLs 4 times daily as needed for IrritationShake Well; For Oral Use. Lidocaine Viscous 2%; 80mL, Diphenhydramine 12.5MG/5Ml; 80mL, ALUM & MAG HYDROXIDE-SIMETH 200-200-20 MG/5ML; 80mL. 07/21/24 Yes Osmar Rodriguez MD amLODIPine (NORVASC) 10 MG tablet Take 1 tablet by mouth daily 06/24/24 Yes Osmar Rodriguez MD levothyroxine (SYNTHROID) 150 MCG tablet Take 1 tablet by mouth every morning 06/24/24 Yes Osmar Rodriguez MD ammonium lactate (LAC-HYDRIN) 12 % lotion Apply topically as needed. 06/15/24 Yes Osmar Rodriguez MD metoprolol succinate (TOPROL XL) 25 MG extended release tablet Take 1 tablet by mouth daily 06/01/24 Yes Osmar Rodriguez MD gabapentin (NEURONTIN) 800 MG tablet Take 1 tablet by mouth 3 times daily for 90 days. 04/30/24 08/12/24 Yes Osmar Rodriguez MD nitroGLYCERIN (NITROSTAT) 0.[address] 1 tablet under the tongue every 5 minutes as needed for Chest pain up to max of 3 total doses. If no relief after 1 dose, call 911. 02/19/24 Yes Osmar Rodriguez MD pantoprazole (PROTONIX) 40 MG tablet Take 1 tablet by mouth daily 02/06/24 Yes Osmar Rodriguez MD isosorbide mononitrate (IMDUR) 60 MG extended release tablet Take 1 tablet by mouth daily 02/06/24 Yes Osmar Rodriguez MD losartan (COZAAR) 100 MG tablet Take 1 tablet by mouth daily 02/06/24 Yes Osmar Rodriguez MD albuterol sulfate HFA (PROVENTIL;VENTOLIN;PROAIR) 108 (90 Base) MCG/ACT inhaler inhale 2 puffs by mouth and INTO THE LUNGS four times a day if needed for wheezing 02/06/24 Yes Osmar Rodriguez MD budesonide-formoterol (SYMBICORT) 160-4.5 MCG/ACT AERO Inhale 2 puffs into the lungs 2 times daily 02/06/24 Yes Osmar Rodriguez MD pravastatin (PRAVACHOL) 40 MG tablet Take 1 tablet by mouth daily 02/06/24 Yes Osmar Rodriguez MD aspirin (ASPIRIN LOW DOSE) 81 MG chewable tablet Take 1 tablet by mouth daily 04/12/23 Yes Osmar Rodriguez MD albuterol (PROVENTIL) (2.5 MG/3ML) 0.083% nebulizer solution Take 3 mLs by nebulization every 6 hours as needed for Wheezing or Shortness of Breath 12/31/22 Yes Patricia Oh APRN - CNP FLOVENT HFA 44 MCG/ACT inhaler Inhale 2 puffs into the lungs 2 times daily 12/18/22 Yes Osmar Rodriguez MD metFORMIN (GLUCOPHAGE) 500 MG tablet Take 1 tablet by mouth 2 times daily (with meals) Patient not taking: Reported on 08/12/2024 08/10/24 Oliva Dunlap APRN - CNP docusate sodium (COLACE) 100 MG capsule Take 1 capsule by mouth 2 times daily as needed for Constipation Patient not taking: Reported on 08/12/2024 02/06/24 Osmar Rodriguez MD tiotropium (SPIRIVA HANDIHALER) 18 MCG inhalation capsule Inhale 1 capsule into the lungs daily Patient taking differently: Inhale 1 capsule into the lungs daily as needed 02/06/24 Osmar Rodriguez MD Blood Pressure KIT 1 kit by Does not apply route daily 10/18/23 Osmar Rodriguez MD Incontinence Supplies MISC Use as directed for incontinence 10/23/22 Osmar Rodriguez MD vitamin D (ERGOCALCIFEROL) 1.25 MG (19471 UT) CAPS capsule take 1 capsule by mouth every week Patient not taking: Reported on 08/12/2024 10/22/22 Osmar Rodriguez MD Incontinence Supply Disposable (Oncopeptides INCONTINENCE PADS) MISC 1 each by Does not apply route 4 times daily as needed (incontinence) 09/21/22 10/29/22 Osmar Rodriguez MD ALLERGIES: Cyclobenzaprine, Levofloxacin, Nickel, Regadenoson, Environmental/seasonal, Trazodone and nefazodone, Zithromax [azithromycin], Cefaclor, and Simvastatin OBJECTIVE: Vitals: 08/14/24 1513 08/14/24 1731 08/14/24201108/15/24 0430 BP: 132/73 Pulse: 69 75 Resp: 16 16 18 Temp: 97.5 F (36.4 C) TempSrc: Temporal SpO2: 97% 95% Weight: 56 kg (123 lb 7.3 oz) Height: Intake/Output Summary (Last 24 hours) at 08/15/2024 0628 Last data filed at 08/15/2024 0550 Gross per 24 hour Intake 480 ml Output 1450 ml Net -970 ml PHYSICAL EXAM: General Appearance Alert , awake , not in acute distress HEENT - Head is normocephalic, atraumatic. Lungs - Bilateral equal air entry , no wheezes, rales or rhonchi, aeration good Cardiovascular - Heart sounds are normal. Regular rhythm, normal rate without murmur, gallop or rub. Abdomen - Soft, nontender, nondistended, no masses or organomegaly Neurologic - There are no new focal motor or sensory deficits Skin - No bruising or bleeding on exposed skin area Extremities - No cyanosis, clubbing or edema, noted sores on both lower extremities, dressings are cdi, sores have betadine DIAGNOSTICS: Laboratory Testing: See [facility] EMR for lab data No results found for this or any previous visit (from the past 24 hours). Current Facility-Administered Medications Medication Dose Route Frequency Provider Last Rate Last Admin multivitamin 1 tablet 1 tablet Oral Daily Osmar Rodriguez MD benzonatate (TESSALON) capsule 200 mg 200 mg Oral TID Osmar Rodriguez MD 200 mg at 08/14/24 1339 gabapentin (NEURONTIN) capsule 600 mg 600 mg Oral TID Oliva Dunlap APRN - CNP 600 mg at 08/14/24 2159 [START ON 08/16/2024] vitamin D (ERGOCALCIFEROL) capsule 50,000 Units 50,000 Units Oral Weekly Oliva Dunlap APRN - CNP albuterol (PROVENTIL) (2.5 MG/3ML) 0.083% nebulizer solution 2.5 mg 2.5 mg Nebulization Q6H PRN Oliva Dunlap APRN - CNP aspirin chewable tablet 81 mg 81 mg Oral Daily Oliva Dunlap APRN - CNP 81 mg at 08/14/24 0926 docusate sodium (COLACE) capsule 100 mg 100 mg Oral BID PRN Oliva Dunlap APRN - CNP pantoprazole (PROTONIX) tablet 40 mg 40 mg Oral Daily Oliva Dunlap APRN - CNP 40 mg at08/14/24925 isosorbide mononitrate (IMDUR) extended release tablet 60 mg 60 mg Oral Daily Oliva Dunlap APRN - CNP 60 mg at 08/14/24925 losartan (COZAAR) tablet 100 mg 100 mg Oral Daily Oliva Dunlap APRN - CNP 100 mg at 08/14/24925 budesonide-formoterol (SYMBICORT) 160-4.5 MCG/ACT inhaler 2 puff 2 puff Inhalation BID Oliva Dunlap APRN - CNP 2 puff at 08/14/242022 pravastatin (PRAVACHOL) tablet 40 mg 40 mg Oral Daily Oliva Dunlap APRN - CNP 40 mg at08/14/24924 nitroGLYCERIN (NITROSTAT) SL tablet 0.4 mg 0.4 mg SubLINGual Q5 Min PRN Oliva Mack APRN - CNP metoprolol succinate (TOPROL XL) extended release tablet 25 mg 25 mg Oral Daily Oliva Dunlap APRN - CNP 25 mg at 08/14/24925 amLODIPine (NORVASC) tablet 10 mg 10 mg Oral Daily Oliva Dunlap APRN - CNP 10 mg at 08/14/24925 levothyroxine (SYNTHROID) tablet 150 mcg 150 mcg Oral QAM Oliva Dunlap APRN - CNP 150 mcg at 08/14/24925 magic mouthwash 15 mL 15 mL Oral 4x Daily PRN Oliva Dunlap APRN - CNP chlorhexidine (PERIDEX) 0.12 % solution 15 mL 15 mL Mouth/Throat BID Oliva Mack APRN- CNP 15 mL at 08/14/242157 apixaban (ELIQUIS) tablet 5 mg 5 mg Oral Daily Oliva Dunlap APRN - CNP 5 mg at 08/14/242158 zolpidem (AMBIEN) tablet 10 mg 10 mg Oral Nightly PRN Oliva Dunlap APRN - CNP 10 mg at08/14/242202 methocarbamol (ROBAXIN) tablet 750 mg 750 mg Oral 4x Daily Oliva Dunlap APRN - CNP 750mg at 08/14/242158 benzonatate (TESSALON) capsule 200 mg 200 mg Oral TID PRN Oliva Dunlap APRN - CNP 200 mg at 08/14/242006 metFORMIN (GLUCOPHAGE) tablet 500 mg 500 mg Oral BID WC Oliva Dunlap APRN - CNP 500 mgat 08/12/24 1639 amoxicillin-clavulanate (AUGMENTIN) 875-125 MG per tablet 1 tablet 1 tablet Oral BID Oliva Dunlap APRN - CNP 1 tablet at 08/14/24 215 povidone-iodine (BETADINE) 10 % external solution Topical Daily Oliva Dunlap APRN - CNP Given at 08/14/24 2331 pioglitazone (ACTOS) tablet 45 mg 45 mg Oral Daily Oliva Dunlap APRN - CNP 45 mg at 08/14/24 0926 sodium chloride flush 0.9 % injection 10 mL 10 mL IntraVENous 2 times per day Oliva Dunlap APRN - TRUST ADMINISTRATOR 10 mL at 08/14/242206 sodium chloride flush 0.9 % injection 10 mL 10 mL IntraVENous PRN Oliva Dunlap APRN - CNP 0.9 % sodium chloride infusion IntraVENous PRN Oliva Dunlap APRN - CNP potassium chloride (KLOR-CON M) extended release tablet 40 mEq 40 mEq Oral PRN Oliva Dunlap APRN - CNP Or potassium bicarb-citric acid (EFFER-K) effervescent tablet 40 mEq 40 mEq Oral PRN Oliva Dunlap APRN - CNP Or potassium chloride 10 mEq/100 mL IVPB (Peripheral Line) 10 mEq IntraVENous PRN Oliva Dunlap APRN - CNP ondansetron (ZOFRAN-ODT) disintegrating tablet 4 mg 4 mg Oral Q8H PRN Oliva Mack APRN - CNP Or ondansetron (ZOFRAN) injection 4 mg 4 mg IntraVENous Q6H PRN Oliva Dunlap APRN - CNP polyethylene glycol (GLYCOLAX) packet 17 g 17 g Oral Daily PRN Oliva Dunlap APRN - CNP acetaminophen (TYLENOL) tablet 650 mg 650 mg Oral Q6H PRN Oliva Dunlap APRN - CNP Or acetaminophen (TYLENOL) suppository 650 mg 650 mg Rectal Q6H PRN Oliva Dunlap APRN - CNP magnesium sulfate 2000 mg in 50 mL IVPB premix 2,000 mg IntraVENous PRN Oliva Mack APRN - CNP nicotine (NICODERM CQ) 21 MG/24HR 1 patch 1 patch TransDERmal Daily Oliva Mack APRN - CNP 1 patch at 08/14/24 0925 oxyCODONE-acetaminophen (PERCOCET) 7.5-325 MG per tablet 1 tablet 1 tablet Oral Q4H PRN Oliva Dunlap APRN - CNP 1 tablet at 08/15/24 0310 albuterol sulfate HFA (PROVENTIL;VENTOLIN;PROAIR) 108 (90 Base) MCG/ACT inhaler 2 puff 2 puff Inhalation TID RT Osmar Rodriguez MD 2 puff at 08/14/24 2023 tiotropium (SPIRIVA RESPIMAT) 2.5 MCG/ACT inhaler 2 puff 2 puff Inhalation Daily RT Oliva Dunlap APRN - CNP 2 puff at 08/14/24 0824 ASSESSMENT: Principal Problem: Unable to care for self Active Problems: Diabetic ulcer of toe of left foot associated with type 2 diabetes mellitus, with fat layer exposed(HCC) Chronic pain syndrome Claudication in peripheral vascular disease Diabetic ulcer of left heel associated with type 2 diabetes mellitus, with fat layer exposed (HCC) Oxygen dependent - 2L per baseline Resolved Problems: * No resolved hospital problems. * PLAN: Primary Problem(s): Unable to care for self Condition is at treatment goal Treatment plan: Continue current treatment Imaging: no further imaging studies ordered today Medications: Continue current meds Medication Monitoring / High Risk Medications: none Augmentin to be continued Local wound care per Podiatry Further OP w/u with Vascular Monitor labs Obtain iron studies Multivitamin, Wilner for wounds/healing Dispo pending insurance approval. DVT prophylaxis: She is on eliquis GI prophylaxis: PPI Above plan discussed with the patient who agreed to the above plan Discussed care plan with nurse after getting their input. Please note that this chart was generated using voice recognition [employer]on dictation software. Although every effort was made to ensure the accuracy of this automated skidder lever operator, some errors in skidder lever operator may have occurred. Osmar Rodriguez MD 08/15/2024 6:28 AM * Kimberly Valenzuela RN - 08/15/2024 4:30 AM EDT Pt took dressings off of feet several times during the night. Ladle Operator put betadine on the sores and rewrapped her feet. Pt states she was not picking at the sores. * Kimberly Valenzuela RN - 08/14/2024 8:12 PM EDT Patient A&O x4, calm, and cooperative. Vital signs and head to toe assessment completed at thistime, see flowsheets for details. Patient was briefly educated on medications due tonight. Patient denies needs at this time. Call light within reach. Bedside table within reach, bed in lowest position, bed/chair wheels locked, and alarm is set. Care ongoing. * Darling Welsh RCP - 08/14/2024 4:22 PM EDT RESPIRATORY ASSESSMENT PROTOCOL Patient Name: Jonatan Henrywick Room#: 0301/0301-01 : 1960 Admitting diagnosis: PVD (peripheral vascular disease) with claudication [I73.9] Open wound of toe, initial encounter [S91.109A] Open wound of foot excluding toes [S91.309A] Unable to care for self [Z78.9] Medical History: Past Medical History: Diagnosis Date Asthma Back problem Bulging discs (2 or 3), 1 cracked & 1 blackened discs CAD (coronary artery disease) stents x 3; BMS to LAD 12/2010;SPARKLE to RCA 01/2011, NL LV COPD (chronic obstructive pulmonary disease) ([facility]) Depression Diabetes mellitus ([facility]) Edema chevy legs feet H/O cardiac catheterization 01/01/2011 H/O echocardiogram 09/03/2019 EF 65% evidence of mild grade I diastolic dysfunction seen Hernia of abdominal wall 2012 History of cardiac cath 03/17/2020 [facility] Michael/Dr. Stephens/Left Radial History of cardiac cath 03/17/2020 severe single vessel disease involving the RCA. Mod 2 vessel disease in the Circumflex and D1 branch fo the LAD Nomrla LVEDP Consults IR cardiology for likely angioplasty and or stent of pts severe stenosis History of cardiovascular stress test 10/15/2012 Abnormal myocardial perfusion study, small to mod perfusion defect of mild intensity in the anterolateral and lateral regions during stress imaging, LV function NL, no wall motion abnormalities, No significant EKG evidence of ischemia during monitoring w/o significant arrhythmias. History of echocardiogram 02/24/2018 EF 60%. Mildly increased LV wall thickness. Evidence of mild diastolic dysfunction seen. History of stress test 04/23/2017 Largerly normal myocardial perfusion imaging with soft tissue artifact, but without signficant evidence of myocardial ischemia or infarction. EF 73%. Hx of blood clots abdomen Hypertension Hypothyroidism Leg pain, bilateral rate 10 Wears partial dentures upper PATIENT ASSESSMENT LABORATORY DATA Hematology: Lab Results Component Value Date/Time WBC 7.9 08/14/2024 05:28 AM RBC 3.89 08/14/2024 05:28 AM RBC 4.28 05/21/2011 08:26 AM HGB 10.0 08/14/2024 05:28 AM HCT 33.7 08/14/2024 05:28 AM PLT 331 08/14/2024 05:28 AM PLT 205 05/21/2011 08:26 AM Chemistry: Lab Results Component Value Date/Time PHART 7.355 12/13/2022 05:39 AM UKL8OBL 46.8 12/13/2022 05:39 AM PO2ART 57.3 12/13/2022 05:39 AM B2JDXAJG 88.5 12/13/2022 05:39 AM NNO4YEP 25.5 12/13/2022 05:39 AM PBEA NOT REPORTED 05/03/2021 07:45 AM NBEA 0.4 12/13/2022 05:39 AM VITALS Pulse: 69 Respirations: 16 BP: 112/62 SpO2: 97 % O2 Device: Nasal cannula Temp: 97.4 F (36.3 C) SKIN COLOR [x] Normal [] Pale [] Dusky [] Cyanotic RESPIRATORY PATTERN [x] Normal [] Dyspnea [] Devin-Gallardo [] Kussmaul [] Biots AMBULATORY [] Yes [] No [x] With Assistance Patient Acuity 0 1 2 3 4 Score Level of Consciousness (LOC) [x] Alert & Oriented or Pt normal LOC [] Confused;follows directions [] Confused & uncooper-ative [] Obtunded [] Comatose 0 Respiratory Rate (RR) [] Reg. rate & pattern. 12 - 20 bpm [] Increased RR. Greater than 20 bpm [x] SOB w/ exertion or RR greater than 24 bpm [] Access- ory muscle use at rest. Abn. resp. [] SOB at rest. 2 Bilateral Breath Sounds (BBS) [] Clear [] Diminish-ed bases [x] Diminish-ed t/o, or rales [] Sporadic, scattered wheezes or rhonchi [] Persistentwheezes and, or absent BBS 2 Cough [x] Strong, effective, & non-prod. [] Effective & prod. Less than 25 ml (2 TBSP) over past 24 hrs [] Ineffective & non-prod to less than 25 ML over past 24 hrs [] Ineffective and, or greater than 25 ml sputum prod. past 24 hrs. [] Nonspon- taneous; Requires suctioning 0 Pulmonary History (PULM HX) [] No smoking and no chronic pulmonary history [] Former smoker. Quit over 12 mos. ago [] Current smoker or quit w/ in 12 mos [x] Pulm. History and, or 20 pk/yr smoking hx [] Admitted w/ acute pulm. dx and, or has been admitted w/ pulm. dx 2 or more times over past 12 mos 3 Surgical History this Admit (SURG HX) [x] No surgery [] General surgery [] Lower abdominal [] Thoracic or upper abdominal [] Thoracic w/ pulm. disease 0 Chest X-Ray (CXR)/CT Scan [x] Clear or not applicable [] Not available [] Atelectasis or pleural effusions [] Localized infiltrate or pulm. edema [] Con-solidated Infiltrates, bilateral, or in more than 1 lobe 0 TOTAL ACUITY: 7 CARE PLAN If Acuity Level is 2, 3, or 4 in any of the following: [x] BILATERAL BREATH SOUNDS (BBS) [x] PULMONARY HISTORY (PULM HX) [] Respiratory Rate (RR) Goal: Improve respiratory functions in patients with airway disease and decrease WOB [x] AEROSOL PROTOCOL Total Acuity: 14-28 [] Secondary Assessment in 24 hrs Total Acuity: 9-13 [] Secondary Assessment in 24 hrs Total Acuity: 4-8 [x] Secondary Assessment in 24 hrs Total Acuity: 0-3 [] Secondary Assessment in 48 hrs HHN AEROSOL THERAPY with [physician-ordered bronchodilator(s)] q 4 & Albuterol PRN q2 hrs. Breath-Actuated Neb if BBS Acuity = 4, and pt. can use MP. Notify physician if condition deteriorates. HHN AEROSOL THERAPY with [physician-ordered bronchodilator(s)] QID and Albuterol PRN q4 hrs. Breath-Actuated Neb if BBS Acuity = 4, and pt. can use MP. Notify physician if condition deteriorates. MDI THERAPY with 2 actuations of [physician-ordered bronchodilator(s)] via spacer TID Albuterol and PRN q4 hrs. If unable to utilize MDI: HHN [physician-ordered bronchodilator(s)] TID and Albuterol PRN q4 hrs. Notify physician if condition deteriorates. MDI THERAPY with [physician-ordered bronchodilator(s)] via spacer TID PRN. If unable to utilize MDI: HHN [physician-ordered bronchodilator(s)] TID PRN. Notify physician if condition deteriorates. If Acuity Level is 2, 3, or 4 in any of the following: [] COUGH [] SURGICAL HISTORY (SURG HX) [] CHEST XRAY (CXR) Goal: Improvement in sputum mobilization in patients with ineffective airway clearance. Reverse atelectasis. [] Bronchopulmonary Hygiene Protocol Total Acuity: 14-28 [] Secondary Assessment in 24 hrs Total Acuity: 9-13 [] Secondary Assessment in 24 hrs Total Acuity: 4-8 [] Secondary Assessment in 24 hrs Total Acuity: 0-3 [] Secondary Assessment in 48 hrs METANEB QID with [physician-ordered bronchodilator(s)] if CXR Acuity = 4; otherwise: PD&P, Oscillatory Therapy, or Vest QID & PRN AND PEP QID & PRN NT Sxn PRN for ineffective cough METANEB QID with [physician-ordered bronchodilator(s)] if CXR Acuity = 4; otherwise: PD&P, Oscillatory Therapy or Vest QID & PRN AND PEP QID & PRN NT Sxn PRN for ineffective cough PD&P, Oscillatory Therapy, or Vest TID & PRN AND PEP TID & PRN Instruct patient to self-perform IS q1hr WA If Acuity Level is 2 or above in the following: [] PULMONARY HISTORY (PULM HX) Goal: Assist patient in quitting smoking to slow or stop the progression of lung disease. [] Smoking Cessation Protocol SMOKING CESSATION EDUCATION provided according to policy RT_201: (gordo with an X) ____Yes ____ No ____ NA Smoking Cessation Booklet given: ____Yes ____No ____Patient Refused * Erika Vivar PTA - 08/14/2024 1:56 PM EDT [facility] Inpatient/Observation/Outpatient Rehabilitation Date: 08/14/2024 Patient Name: Jonatan Olivarez [x] Inpatient Acute/Observation [] Outpatient : 1960 [x] Pt refused/declined therapy at this time due to: Pt. Declined stating B feet hurt to much and she is going to take a nap. [] Pt cancelled due to: [] No Reason Given [] Sick/ill [] Other: [] Evaluation held by RN/Provider/Physical Therapist due to: [] High Heart Rate [] High Blood Pressure [] Orthopedic Consult [] Hgb < 7 [] Other: [] Pt ordered brace per physician request: [] Proper fit will be completed and education for wearing/skin checks [] Pt does not require skilled services due to: Therapist/System Designer will attempt to see this patient, at our earliest opportunity. Erika Vivar PTA Date: 08/14/2024 Cosigned by Joanie Mireles, PT at 08/14/2024 3:22 PM EDT * Leah Pruitt RN - 08/14/2024 1:52 PM EDT Re-wrapped bilateral feet at this time per pt request due to gauze dressing coming loose. FAUSTO wrap applied after gauze dressing this time. Pt tolerated well. Small amount bloody drainage coming from wound on left heel and ABD pad applied. Pt also took off offloading boots while laying in bed, states she cannot sleep with them on. RN encourages pt to keep legs elevated. * Erika Vivar PTA - 08/14/2024 10:35 AM EDT Physical Therapy Facility/Department: [facility] Daily Treatment Note NAME: Jonatan Olivarez : 1960 Date of Service: 08/14/2024 Discharge Recommendations: Continue to assess pending progress Patient Diagnosis(es): The primary encounter diagnosis was Open wound of foot excluding toes. Diagnoses of Open wound of toe, initial encounter, PVD (peripheral vascular disease) with claudication, and Unable to care for self were also pertinent to this visit. Assessment Assessment: Bed mobility: SUP. Transfers:SUP/SBA. Pt ambulated 15ftx1 from restroom to bed with WW,SUP. Pt. noted to have antalgic gait pattern from B foot ain. Supine exercises B LE x10 Activity Tolerance: Patient tolerated treatment well Plan Physical Therapy Plan General Plan: 2 times a day 7 days a week Specific Instructions for Next Treatment: Once daily on weekends Current Treatment Recommendations: Strengthening;ROM;Balance training;Functional mobility training;Transfer training;Neuromuscular re-education;Stair training;Gait training;Home exercise program;Safety education & training;Therapeutic activities;Patient/Caregiver education & training;Manual; Endurance training Restrictions Restrictions/Precautions Restrictions/Precautions: General Precautions, Fall Risk, Contact Precautions Subjective Subjective Subjective: PT. in restrom with call light on upn arrival. Pain: L foot increased pain, RN giving pain meds during treatment time. Objective Bed Mobility Training Bed Mobility Training: Yes Overall Level of Assistance: Stand by assistance;Supervision Interventions: Verbal cues Sit to Supine: Stand by assistance;Supervision Scooting: Stand by assistance;Supervision Transfer Training Transfer Training: Yes Overall Level of Assistance: Supervision Interventions: Verbal cues Sit to Stand: Supervision Stand to Sit: Supervision Toilet Transfer: Supervision Gait Gait Training: Yes Overall Level of Assistance: Stand by assistance;Supervision Distance (ft): 15 Feet Assistive Device: Walker, rolling Interventions: Safety awareness training Speed/Valeria: Slow;Shuffled Step Length: Left shortened;Right shortened Stance: Left decreased Gait Abnormalities: Antalgic PT Exercises Exercise Treatment: Supine exercises B LE x10. Declined further exercises at this time Other Specialty Interventions Other Treatments/Modalities: commode use and transfer Safety Devices Type of Devices: All fall risk precautions in place;Call light within reach;Bed alarm in place;Leftin bed Goals Short Term Goals Time Frame for Short Term Goals: 20 days Short Term Goal 1: Patient to complete all transfers with SUP and no LOB to decrease fall risk. Short Term Goal 2: Patient to ambulate 100ft with FWW and SUP with no increase in pain and no LOB to improve mobility. Short Term Goal 3: Patient to tolerate 20-30 min of ther ex/act for improved functional strength. Short Term Goal 4: Patient to ascend/descend 2 steps with HRx1 and SUP with no LOB to safely enter her home. Education Patient Education Education Given To: Patient Education Provided: Role of Therapy;Plan of Care;Transfer Training Education Method: Verbal Barriers to Learning: None Education Outcome: Verbalized understanding;Continued education needed Therapy Time Individual Concurrent Group Co-treatment Time In 920 Time Out 0936 Minutes 15 Erika Vivar PTA Cosigned by Susanne Luciano, PT at 08/14/2024 10:45 AM EDT * Leah Pruitt RN - 08/14/2024 10:27 AM EDT Wound on lateral side of left foot broken open and bleeding slightly, notified Oliva LOVING. Patientwas also caught picking at her feet this morning. * Leah Pruitt RN - 08/14/2024 7:19 AM EDT Vitals and assessment completed at this time as charted. Pt up to use BSC then returned to bed. Alert and oriented x4. C/o intermittent pain in BLE that is intermittent. Wounds are open to air. Doppler pedal pulses both feet. Remains on 2L oxygen. Aware of possible transfer to [facility] depending on insurance. She is asking for pain med to be increased as she states her pain is not controlled. Will let provider know. Fall precautions in place. Call light within reach. * Oliva Dunlap APRN - CNP - 08/14/2024 6:54 AM EDT Images from the original note were not included. Progress Note SUBJECTIVE: Patient seen for f/u of Unable to care for self. She resting in bed no distress. On O2 at 2L. Stated she is worried about the feet. Encourage to keep heels off bed. Discussed POC. ROS: Constitutional: negative for fevers, and negative for chills. Respiratory: negative for shortness of breath, negative for cough, and negative for wheezing Cardiovascular: negative for chest pain, and negative for palpitations Gastrointestinal: negative for abdominal pain, negative for nausea,negative for vomiting, negative for diarrhea, and negative for constipation All other systems were reviewed with the patient and are negative unless otherwise stated in HPI OBJECTIVE: Vitals: Vitals: 08/14/24 0548 BP: Pulse: Resp: 18 Temp: SpO2: Weight - Scale: 56.1 kg (123 lb 11.2 oz) Height: 154.9 cm (5' 1 ) Weight Wt Readings from Last 3 Encounters: 08/14/24 56.1 kg (123 lb 11.2 oz) 08/10/24 59.2 kg (130 lb 8 oz) 08/06/24 63.5 kg (140 lb) Body mass index is 23.37 kg/m . 24HR INTAKE/OUTPUT: Intake/Output Summary (Last 24 hours) at 08/14/2024 0655 Last data filed at 08/14/2024 0201 Gross per 24 hour Intake 720 ml Output 950 ml Net -230 ml Exam: GEN: Awake, alert and oriented x3. EYES: EOMI, pupils equal NECK: Supple. No lymphadenopathy. No carotid bruit CVS: regular rate and rhythm, no audible murmur PULM: dry rales , no acute respiratory distress ABD: Bowels sounds normal. Abdomen is soft. No distention. no tenderness to palpation. EXT: no edema bilaterally . No calf tenderness. NEURO: Moves all extremities. Motor and sensory are grossly intact SKIN: No rashes. No skin lesions. See pics below of BLE 08/12/2024--admission-left foot/toes/heel 08/12/2024--admission-right foot/toes/heel Diagnostic Data: Complete Blood Count: Recent Labs 08/12/24 1101 08/13/24 0535 08/14/24 0528 WBC 7.6 8.8 7.9 RBC 4.25 3.97 3.89* HGB 11.1* 10.1* 10.0* HCT 35.7* 34.3* 33.7* MCV 84.0 86.4 86.6 MCH 26.1 25.4 25.7 MCHC 31.1 29.4 29.7 RDW 19.2* 19.1* 18.8* PLT 328 305 331 MPV 9.3 9.1 9.4 Last 3 Blood Glucose: Recent Labs 08/12/24 1101 08/13/24 0535 08/14/24 0528 GLUCOSE 89 112* 85 Comprehensive Metabolic Profile: Recent Labs 08/12/24 1101 08/13/24 0535 08/14/24 0528 NA 138 140 139 K 3.7 3.6* 4.4 CL 100 102 100 CO2 28 27 30 BUN 8 12 12 CREATININE 0.7 0.7 0.6 GLUCOSE 89 112* 85 CALCIUM 8.5* 8.4* 8.3* Urinalysis: Lab Results Component Value Date/Time NITRU NEGATIVE 01/02/2024 05:05 PM COLORU Yellow 01/02/2024 05:05 PM PHUR 6.0 01/02/2024 05:05 PM PHUR 6.5 05/12/2021 09:39 PM WBCUA 5 TO 10 01/02/2024 05:05 PM RBCUA 0 TO 2 01/02/2024 05:05 PM MUCUS NOT REPORTED 05/12/2021 09:39 PM TRICHOMONAS NOT REPORTED 05/12/2021 09:39 PM YEAST 2+ 05/12/2021 09:39 PM BACTERIA 2+ 01/02/2024 05:05 PM LEUKOCYTESUR SMALL 01/02/2024 05:05 PM UROBILINOGEN Normal 01/02/2024 05:05 PM BILIRUBINUR NEGATIVE 01/02/2024 05:05 PM GLUCOSEU NEGATIVE 01/02/2024 05:05 PM KETUA NEGATIVE 01/02/2024 05:05 PM AMORPHOUS NOT REPORTED 05/12/2021 09:39 PM HgBA1c: Lab Results Component Value Date/Time LABA1C 7.2 08/06/2024 04:50 PM Lactic Acid: Lab Results Component Value Date/Time LACTA 0.7 04/23/2021 01:40 PM LACTA 0.5 02/21/2021 06:55 PM LACTA 1.0 01/17/2021 01:30 AM Troponin: No results for input(s): TROPONINI in the last 72 hours. CRP: Recent Labs 08/12/24 1101 CRP 21.5* Radiology/Imaging: XR FOOT LEFT (MIN 3 VIEWS) Final Result Soft tissue wound at the tip of the 2nd toe. No evidence of osteomyelitis or soft tissue gas XR FOOT RIGHT (2 VIEWS) Final Result No osteomyelitis or soft tissue gas ASSESSMENT / PLAN: MEDICAL DECISION MAKING: Primary Problem(s): Unable to care for self Differential diagnoses: Noncompliance, chronic wounds Condition is a chronic illness with exacerbation, progression or side effects of treatment Condition is stable Treatment plan: Appreciate social services designee-discharge planning-will need SNF PT/OT Up with assistance Imaging: no further imaging studies ordered today Medications: Medications not indicated at this time Medication Monitoring / High Risk Medications: none Chronic wounds of Bilateral Feet Condition is a chronic stable condition Treatment plan: Cancel consult for Dr Newman-out [facility]. Will continue with his POC at this time Scheduled with Dr Colmenares next week, if still here will consult for evaluation Heels off the bed Wound Care: Betadine to wounds daily She is Diabetic -- Refuses to take medications prescribed Imaging: no further imaging studies ordered today Medications: Continue Augmentin Continue Metformin-REFUSES Nutrition status: at risk for malnutrition Microsoft Application Developer consult initiated I/O Daily weight Monitor Daily intake Nutritional Supplements as tolerated MALNUTRITION ASSESSMENT AND PLAN The following was documented by the Dietitian: Malnutrition Assessment Context of Malnutrition: Acute Illness (08/13/24736) Acute Illness - Energy Intake : Mild decrease in energy intake (08/13/24736) Acute Illness - Weight Loss : Mild weight loss (08/13/24736) Acute Illness - Body Fat Loss: No body fat loss (08/13/24736) Acute Illness - Muscle Mass Loss: No muscle mass loss (08/13/24736) Acute Illness - Fluid Accumulation : Mild (08/13/24736) Acute Illness - Fluid Accumulation Location: Extremities (08/13/24736) Acute Illness - Memorial Marker Designer Strength: Not Performed (08/13/24736) Acute Illness - Malnutrition Score: 1 (08/13/24736) Malnutrition Status: At risk for malnutrition (08/13/24736) I agree with the dietitian's malnutrition assessment. Medical Nutrition Therapy: continue current nutrition therapy, oral diet, and oral supplements Hospital Prophylaxis: DVT: Lovenox Stress Ulcer: PPI Disposition: Shared decision making: All test results, treatment options and disposition options were discussed with the patient today Social determinants of health that may impact management: Pt lives alone and is unable to care for self Code status: Full Code Disposition: [facility]charge plan [facility] Advanced Care Planning documentation: [x] I have confirmed that the patient's Advance Care Plan is present, Code Status is documented, orsurrogate decision maker is listed in the patient's medical record [If yes , STOP HERE] [] The patient's Advance Care Plan is NOT present because: [] I confirmed today that the patient does not wish or was not able to name a surrogate decision maker or provide and advance care plan. [] Hospice care is currently being provided or has been provided within the calendar year. [] I did NOT confirm today the presence of an Advance Care Plan or surrogate decision maker documented within the patient's medical record. [DOES NOT SATISFY MIPS PERFORMANCE] Oliva Dunlap APRN - FABIENNE , [facility] Hospitalist Medicine 08/14/2024, 6:55 AM Cosigned by Osmar Rodriguez MD at 08/14/2024 1:14 PM EDT Associated attestation - Osmar Rodriguez MD - 08/14/2024 1:14 PM EDT Images from the original note were not included. [address] [place], [place], [address] Attestation Patient: Jonatan Olivarez Date of Admission: 08/12/2024 10:20 AM Hospital Day # 2 Date of Evaluation: 08/14/2024 I personally evaluated and examined the patient [id number] in conjunction with the PA/RABBET OPERATOR and agree with the management and dispostition of the patient. Please see the PA/RABBET OPERATOR's note for full details.My sims findings are: SUBJECTIVE: Patient seen for follow up of Unable to care for self. She is feeling about the same and continues to have some discomfort in her heels which is mostly unchanged. Her breathing is stable/the same. VSS, afebrile. OBJECTIVE: Vitals: Temp: 97.4 F (36.3 C) BP: (!) 167/70 Respirations: 16 Pulse: 73 SpO2: 94 % Weight Wt Readings from Last 3 Encounters: 08/14/24 56.1 kg (123 lb 11.2 oz) 08/10/24 59.2 kg (130 lb 8 oz) 08/06/24 63.5 kg (140 lb) Body mass index is 23.37 kg/m . 24HR INTAKE/OUTPUT: Intake/Output Summary (Last 24 hours) at 08/14/2024 1310 Last data filed at 08/14/2024 0915 Gross per 24 hour Intake 240 ml Output 800 ml Net -560 ml Exam: GEN: Awake, alert and oriented x3. EYES: EOMI, pupils equal NECK: Supple. No lymphadenopathy. No carotid bruit CVS: regular rate and rhythm, no audible murmur PULM: CTA, no wheezes, rales or rhonchi, no acute respiratory distress ABD: Bowels sounds normal. Abdomen is soft. No distention. no tenderness to palpation. EXT: no edema bilaterally . No calf tenderness. NEURO: Moves all extremities. Motor and sensory are grossly intact SKIN: No rashes. No skin lesions. LE wounds noted, ulcerations DATA: Complete Blood Count: Recent Labs 08/12/24 1101 08/13/24 0535 08/14/24527 WBC 7.6 8.8 7.9 RBC 4.25 3.97 3.89* HGB 11.1* 10.1* 10.0* HCT 35.7* 34.3* 33.7* MCV 84.0 86.4 86.6 RDW 19.2* 19.1* 18.8* PLT 328 305 331 Recent Labs 08/12/24 1101 08/13/24 0535 08/14/24527 NEUTROABS 5.32 5.72 5.56 LYMPHOPCT 16* 18* 14* LYMPHSABS 1.18 1.55 1.07* MONOPCT 7 10 9 BASOPCT 1 1 1 IMMGRAN 0 0 0 CMP: Lab Results Component Value Date GLUCOSE 85 08/14/2024 BUN 12 08/14/2024 CREATININE 0.6 08/14/2024 NA 139 08/14/2024 K 4.4 08/14/2024 CALCIUM 8.3 (L) 08/14/2024 CL 100 08/14/2024 CO2 30 08/14/2024 BILITOT <0.2 08/09/2024 ALKPHOS 74 08/09/2024 ALT 9 (L) 08/09/2024 AST 16 08/09/2024 UA: Lab Results Component Value Date COLORU Yellow 01/02/2024 WBCUA 5 TO 10 01/02/2024 RBCUA 0 TO 2 01/02/2024 LEUKOCYTESUR SMALL (A) 01/02/2024 GLUCOSEU NEGATIVE 01/02/2024 KETUA NEGATIVE 01/02/2024 PROTEINU 2+ (A) 01/02/2024 HGBUR NEGATIVE 01/02/2024 CASTUA NOT REPORTED 05/12/2021 BACTERIA 2+ (A) 01/02/2024 YEAST 2+ (A) 05/12/2021 Lactic Acid: Lab Results Component Value Date/Time LACTA 0.7 04/23/2021 01:40 PM LACTA 0.5 02/21/2021 06:55 PM LACTA 1.0 01/17/2021 01:30 AM High Sensitivity Troponin: No results for input(s): TROPHS in the last 72 hours. Radiology/Imaging: XR FOOT LEFT (MIN 3 VIEWS) Final Result Soft tissue wound at the tip of the 2nd toe. No evidence of osteomyelitis or soft tissue gas XR FOOT RIGHT (2 VIEWS) Final Result No osteomyelitis or soft tissue gas ASSESSMENT: Principal Problem: Unable to care for self Active Problems: Diabetic ulcer of toe of left foot associated with type 2 diabetes mellitus, with fat layer exposed(HCC) Chronic pain syndrome Claudication in peripheral vascular disease Diabetic ulcer of left heel associated with type 2 diabetes mellitus, with fat layer exposed (HCC) Oxygen dependent - 2L per baseline Resolved Problems: * No resolved hospital problems. * PLAN: I agree with the plan as outlined in the RABBET OPERATOR/PA's note Disposition: Discharge plan is pending Please note that this chart was generated using voice recognition [employer]on dictation software. Although every effort was made to ensure the accuracy of this automated skidder lever operator, some errors in skidder lever operator may have occurred. Osmar Rodriguez MD 08/14/2024 1:10 PM * Rosalinda Adame RN - 08/14/2024 1:53 AM EDT Pt yelling out of room for help. Ladle Operator entered room, pt in bed yelling at chief writer about time my leonard champion call light is on the floor and nobody is coming to help me . Ladle Operator showed pt the red button on the side of he bed in case this were to happen again. Pt understood. Ladle Operator cleaned pt up at thistime, changed bed sheets. Care ongoing. * Rosalinda Adame RN - 08/13/2024 6:50 PM EDT Vitals and assessment completed at this time, see flowsheet for more details. Pt resting comfortably in bed awake at this time. Pt states she is in 8/10 pain but would like to wait for her pain medication until she gets her night medication. Wounds assessed at this time. Pt remains on 2LNC. Pt A&Oox4. All needs met at this time, call light within reach. Care ongoing. * Erika Vivar PTA - 08/13/2024 3:19 PM EDT [facility] Inpatient/Observation/Outpatient Rehabilitation Date: 08/13/2024 Patient Name: Jonatan Olivarez [x] Inpatient Acute/Observation [] Outpatient : 1960 [x] Pt refused/declined therapy at this time due to: Pt. Declined therapy at this time d/t increased foot pain and wanting to rest. [] Pt cancelled due to: [] No Reason Given [] Sick/ill [] Other: [] Evaluation held by RN/Provider/Physical Therapist due to: [] High Heart Rate [] High Blood Pressure [] Orthopedic Consult [] Hgb < 7 [] Other: [] Pt ordered brace per physician request: [] Proper fit will be completed and education for wearing/skin checks [] Pt does not require skilled services due to: Therapist/System Designer will attempt to see this patient, at our earliest opportunity. Erika Vivar, VAMP LINER Date: 08/13/2024 Cosigned by Joanie Mireles PT at 08/13/2024 4:08 PM EDT * Bea Mireles, LEADERSHIP PROGRAM INTERN - 08/13/2024 12:47 PM EDT RESPIRATORY ASSESSMENT PROTOCOL Patient Name: Jonatan Phillips Challis Room#: 0301/0301-01 : 1960 Admitting diagnosis: PVD (peripheral vascular disease) with claudication [I73.9] Open wound of toe, initial encounter [S91.109A] Open wound of foot excluding toes [S91.309A] Unable to care for self [Z78.9] Medical History: Past Medical History: Diagnosis Date Asthma Back problem Bulging discs (2 or 3), 1 cracked & 1 blackened discs CAD (coronary artery disease) stents x 3; BMS to LAD 12/2010;SPARKLE to RCA 01/2011, NL LV COPD (chronic obstructive pulmonary disease) ([facility]) Depression Diabetes mellitus ([facility]) Edema chevy legs feet H/O cardiac catheterization 01/01/2011 H/O echocardiogram 09/03/2019 EF 65% evidence of mild grade I diastolic dysfunction seen Hernia of abdominal wall 2012 History of cardiac cath 03/17/2020 [facility] Michael/Dr. Stephens/Left Radial History of cardiac cath 03/17/2020 severe single vessel disease involving the RCA. Mod 2 vessel disease in the Circumflex and D1 branch fo the LAD Nomrla LVEDP Consults IR cardiology for likely angioplasty and or stent of pts severe stenosis History of cardiovascular stress test 10/15/2012 Abnormal myocardial perfusion study, small to mod perfusion defect of mild intensity in the anterolateral and lateral regions during stress imaging, LV function NL, no wall motion abnormalities, No significant EKG evidence of ischemia during monitoring w/o significant arrhythmias. History of echocardiogram 02/24/2018 EF 60%. Mildly increased LV wall thickness. Evidence of mild diastolic dysfunction seen. History of stress test 04/23/2017 Largerly normal myocardial perfusion imaging with soft tissue artifact, but without signficant evidence of myocardial ischemia or infarction. EF 73%. Hx of blood clots abdomen Hypertension Hypothyroidism Leg pain, bilateral rate 10 Wears partial dentures upper PATIENT ASSESSMENT LABORATORY DATA Hematology: Lab Results Component Value Date/Time WBC 8.8 08/13/2024 05:35 AM RBC 3.97 08/13/2024 05:35 AM RBC 4.28 05/21/2011 08:26 AM HGB 10.1 08/13/2024 05:35 AM HCT 34.3 08/13/2024 05:35 AM PLT 305 08/13/2024 05:35 AM PLT 205 05/21/2011 08:26 AM Chemistry: Lab Results Component Value Date/Time PHART 7.355 12/13/2022 05:39 AM PFS7QQY 46.8 12/13/2022 05:39 AM PO2ART 57.3 12/13/2022 05:39 AM M6VRCHIV 88.5 12/13/2022 05:39 AM DMN1FIH 25.5 12/13/2022 05:39 AM PBEA NOT REPORTED 05/03/2021 07:45 AM NBEA 0.4 12/13/2022 05:39 AM VITALS Pulse: 94 Respirations: 18 BP: (!) 140/65 SpO2: 90 % O2 Device: Nasal cannula Temp: 97.2 F (36.2 C) SKIN COLOR [x] Normal [] Pale [] Dusky [] Cyanotic RESPIRATORY PATTERN [] Normal [x] Dyspnea [] Devin-Gallardo [] Kussmaul [] Biots AMBULATORY [x] Yes [] No [] With Assistance Patient Acuity 0 1 2 3 4 Score Level of Consciousness (LOC) [x] Alert & Oriented or Pt normal LOC [] Confused;follows directions [] Confused & uncooper-ative [] Obtunded [] Comatose 0 Respiratory Rate (RR) [] Reg. rate & pattern. 12 - 20 bpm [] Increased RR. Greater than 20 bpm [x] SOB w/ exertion or RR greater than 24 bpm [] Access- ory muscle use at rest. Abn. resp. [] SOB at rest. 2 Bilateral Breath Sounds (BBS) [] Clear [] Diminish-ed bases [x] Diminish-ed t/o, or rales [] Sporadic, scattered wheezes or rhonchi [] Persistentwheezes and, or absent BBS 2 Cough [x] Strong, effective, & non-prod. [] Effective & prod. Less than 25 ml (2 TBSP) over past 24 hrs [] Ineffective & non-prod to less than 25 ML over past 24 hrs [] Ineffective and, or greater than 25 ml sputum prod. past 24 hrs. [] Nonspon- taneous; Requires suctioning 0 Pulmonary History (PULM HX) [] No smoking and no chronic pulmonary history [] Former smoker. Quit over 12 mos. ago [] Current smoker or quit w/ in 12 mos [x] Pulm. History and, or 20 pk/yr smoking hx [] Admitted w/ acute pulm. dx and, or has been admitted w/ pulm. dx 2 or more times over past 12 mos 3 Surgical History this Admit (SURG HX) [x] No surgery [] General surgery [] Lower abdominal [] Thoracic or upper abdominal [] Thoracic w/ pulm. disease 0 Chest X-Ray (CXR)/CT Scan [x] Clear or not applicable [] Not available [] Atelectasis or pleural effusions [] Localized infiltrate or pulm. edema [] Con-solidated Infiltrates, bilateral, or in more than 1 lobe 0 TOTAL ACUITY: 7 CARE PLAN If Acuity Level is 2, 3, or 4 in any of the following: [x] BILATERAL BREATH SOUNDS (BBS) [x] PULMONARY HISTORY (PULM HX) [x] Respiratory Rate (RR) Goal: Improve respiratory functions in patients with airway disease and decrease WOB [x] AEROSOL PROTOCOL Total Acuity: 14-28 [] Secondary Assessment in 24 hrs Total Acuity: 9-13 [] Secondary Assessment in 24 hrs Total Acuity: 4-8 [x] Secondary Assessment in 24 hrs Total Acuity: 0-3 [] Secondary Assessment in 48 hrs HHN AEROSOL THERAPY with [physician-ordered bronchodilator(s)] q 4 & Albuterol PRN q2 hrs. Breath-Actuated Neb if BBS Acuity = 4, and pt. can use MP. Notify physician if condition deteriorates. HHN AEROSOL THERAPY with [physician-ordered bronchodilator(s)] QID and Albuterol PRN q4 hrs. Breath-Actuated Neb if BBS Acuity = 4, and pt. can use MP. Notify physician if condition deteriorates. MDI THERAPY with 2 actuations of [physician-ordered bronchodilator(s)] via spacer TID Albuterol and PRN q4 hrs. If unable to utilize MDI: HHN [physician-ordered bronchodilator(s)] TID and Albuterol PRN q4 hrs. Notify physician if condition deteriorates. MDI THERAPY with [physician-ordered bronchodilator(s)] via spacer TID PRN. If unable to utilize MDI: HHN [physician-ordered bronchodilator(s)] TID PRN. Notify physician if condition deteriorates. If Acuity Level is 2, 3, or 4 in any of the following: [] COUGH [] SURGICAL HISTORY (SURG HX) [] CHEST XRAY (CXR) Goal: Improvement in sputum mobilization in patients with ineffective airway clearance. Reverse atelectasis. [] Bronchopulmonary Hygiene Protocol Total Acuity: 14-28 [] Secondary Assessment in 24 hrs Total Acuity: 9-13 [] Secondary Assessment in 24 hrs Total Acuity: 4-8 [] Secondary Assessment in 24 hrs Total Acuity: 0-3 [] Secondary Assessment in 48 hrs METANEB QID with [physician-ordered bronchodilator(s)] if CXR Acuity = 4; otherwise: PD&P, Oscillatory Therapy, or Vest QID & PRN AND PEP QID & PRN NT Sxn PRN for ineffective cough METANEB QID with [physician-ordered bronchodilator(s)] if CXR Acuity = 4; otherwise: PD&P, Oscillatory Therapy or Vest QID & PRN AND PEP QID & PRN NT Sxn PRN for ineffective cough PD&P, Oscillatory Therapy, or Vest TID & PRN AND PEP TID & PRN Instruct patient to self-perform IS q1hr WA If Acuity Level is 2 or above in the following: [] PULMONARY HISTORY (PULM HX) Goal: Assist patient in quitting smoking to slow or stop the progression of lung disease. [] Smoking Cessation Protocol SMOKING CESSATION EDUCATION provided according to policy RT_201: (gordo with an X) ____Yes ____ No ____ NA Smoking Cessation Booklet given: ____Yes ____No ____Patient Refused * Kirsten Jackson [facility] - 08/13/2024 8:27 AM EDT Images from the original note were not included. [facility] Department of Pharmacy Pharmacy Renal Adjustment Note Jonatan Olivarez is a 63 y.o. female. Pharmacist assessment of renally cleared medications. Recent Labs 08/12/24 1101 08/13/24 0535 CREATININE 0.7 0.7 Estimated Creatinine Clearance: 61 mL/min (based on SCr of 0.7 mg/dL). Height: Ht Readings from Last 1 Encounters: 08/13/24 1.549 m (5' 1 ) Weight: Wt Readings from Last 1 Encounters: 08/13/24 56 kg (123 lb 6.4 oz) The following medication(s) have been adjusted based upon renal function: Gabapentin 800 mg TID reduced to Gabapentin 600 mg TID for CrCl between 50 - 79 ml/min. Thank you, Kirsten Jackson [facility],08/13/2024,8:26 AM * Rena Loya OT - 08/13/2024 8:10 AM EDT Occupational Therapy Facility/Department: [facility] Occupational Therapy Initial Assessment Name: Jonatan Olivarez : 1960 Date of Service: 08/13/2024 Discharge Recommendations: Continue to assess pending progress, Subacute/Penitentiary Facility, Home with assist PRN, Home with Home health OT Patient Diagnosis(es): The primary encounter diagnosis was Open wound of foot excluding toes. Diagnoses of Open wound of toe, initial encounter, PVD (peripheral vascular disease) with claudication, and Unable to care for self were also pertinent to this visit. Past Medical History: has a past medical history of Asthma, Back problem, CAD (coronary artery disease), COPD (chronic obstructive pulmonary disease) ([facility]), Depression, Diabetes mellitus (HCC), Edema, H/O cardiac catheterization, H/O echocardiogram, Hernia of abdominal wall, History of cardiac cath, History of cardiac cath, History of cardiovascular stress test, History of echocardiogram, Historyof stress test, Hx of blood clots, Hypertension, Hypothyroidism, Leg pain, bilateral, and Wears partial dentures. Past Surgical History: has a past surgical history that includes Cholecystectomy; Hysterectomy; femoral bypass; Cardiac surgery; Cardiac catheterization; vascular surgery; Aorta surgery (05/2016); and Cardiac catheterization (Left, 02/25/2018). Treatment Diagnosis: weakness Assessment Performance deficits / Impairments: Decreased functional mobility ;Decreased ADL status;Decreased ROM;Decreased endurance Assessment: Patient is a 63 y.o. female, admitted to [facility] post admitting diagnosis of PVD (Peripheral Vascular Disease) with claudication. Patient with notable sores on plantar surface of bilateral feet. Patient currently demonstrates decreased endurance for ADL routine, transfers and mobility. Patie nt would benefit from skilled occupational therapy services to ensure safe return to PLOF. Treatment Diagnosis: weakness Prognosis: Fair Decision Making: Medium Complexity REQUIRES OT FOLLOW-UP: Yes Plan Occupational Therapy Plan Times Per Day: Once a day Days Per Week: 7 Days Current Treatment Recommendations: Strengthening, ROM, Functional mobility training, Endurance training, Safety education & training, Patient/Caregiver education & training, Equipment evaluation, education, & procurement, Self-Care / ADL Restrictions Restrictions/Precautions Restrictions/Precautions: General Precautions, Fall Risk, Contact Precautions Subjective General Chart Reviewed: Yes Patient assessed for rehabilitation services?: Yes Family / Caregiver Present: No Referring Practitioner: Oliva Dunlap APRN - FABIENNE Diagnosis: PVD (Peripheral Vascular Disease) with claudication Subjective Subjective: Upon therapist's arrival, pt was up to bedside chair with breakfast. Reports 6/10 pain in bilateral lower extremities. Agreeable to initial occupational therapy evaluation. Social/Functional History Social/Functional History Lives With: Son Type of Home: Apartment Home Layout: One level Home Access: Stairs to enter with rails Entrance Stairs - Number of Steps: 2 Entrance Stairs - Rails: Right Bathroom Shower/Tub: Tub/Shower unit Bathroom Toilet: Standard Bathroom Equipment: None Home Equipment: Oxygen, Rollator, Cane Has the patient had two or more falls in the past year or any fall with injury in the past year?: Yes Receives Help From: Family Prior Level of Assist for ADLs: Independent Prior Level of Assist for Homemaking: Needs assistance (Son completes majority of IADLs at home.) Meal Prep: (Is able to do simple meal prep, depending on the day son will help.) Homemaking Responsibilities: Yes Prior Level of Assist for Ambulation: Independent household ambulator, with or without device Prior Level of Assist for Transfers: Independent Active Outside Salesperson: No Patient's Outside Salesperson Info: son Additional Comments: Pt shares IADL's with son Objective Vision Vision: Within Functional Limits Hearing Hearing: Within functional limits Safety Devices Type of Devices: All shamika prominences offloaded;Patient at risk for falls;All fall risk precautions in place;Call light within reach;Chair alarm in place;Left in chair AROM: Generally decreased, functional PROM: Within functional limits Strength: Generally decreased, functional Coordination: Generally decreased, functional ADL Feeding: Modified independent Grooming: Stand by assistance (seated) UE Bathing: Stand by assistance (seated) LE Bathing: Stand by assistance (seated) UE Dressing: Stand by assistance (seated) LE Dressing: Stand by assistance (seated) Putting On/Taking Off Footwear: Stand by assistance (seated; able to demo figure four positioning) Toileting: Supervision Functional Mobility: Contact guard assistance (with FWW. Limitied mobility secondary to sores on plantar surface of B feet) Activity Tolerance Activity Tolerance: Patient tolerated evaluation without incident;Patient limited by pain Vision Vision: Within Functional Limits Hearing Hearing: Within functional limits Cognition Overall Cognitive Status: WFL Orientation Overall Orientation Status: Within Functional Limits Education Given To: Patient;Family Education Provided: Role of Therapy;Plan of Care;ADL Adaptive Strategies Education Method: Demonstration;Verbal Education Outcome: Verbalized understanding OutComes Score AM-PAC - ADL AM-PAC Daily Activity - Inpatient How much help is needed for putting on and taking off regular lower body clothing?: A Little How much help is needed for bathing (which includes washing, rinsing, drying)?: A Little How much help is needed for toileting (which includes using toilet, bedpan, or urinal)?: A Little How much help is needed for putting on and taking off regular upper body clothing?: A Little How much help is needed for taking care of personal grooming?: A Little How much help for eating meals?: None AM-PAC Inpatient Daily Activity Raw Score: 19 AM-PAC Inpatient ADL T-Scale Score : 40.22 ADL Inpatient CMS 0-100% Score: 42.8 ADL Inpatient CMS G-Code Modifier : CK Goals Short Term Goals Time Frame for Short Term Goals: 21 days Short Term Goal 1: Patient to complete ADL routine c mod I with use of AE/DME as needed to improve safety in preparation for discharge. Short Term Goal 2: Patient to be able to tolerate 20 mins of therex/act to improve functional capacity to improve safety in preparation for discharge. Short Term Goal 3: Patient to be educated on d/c folder, AE/DME and home safety to improve safety in preparation for discharge. Therapy Time Individual Concurrent Group Co-treatment Time In 0802 Time Out 0818 Minutes 16 HANS Grimaldo, LILIANAR/L 08/13/24 Cosigned by Oliva Dunlap APRN - CNP at 08/13/2024 1:11 PM EDT * Joanie Mireles, PT - 08/13/2024 7:38 AM EDT Physical Therapy Facility/Department: [facility] Physical Therapy Initial Assessment Name: Jonatan Olivarez : 1960 Date of Service: 08/13/2024 Discharge Recommendations: Continue to assess pending progress Patient Diagnosis(es): The primary encounter diagnosis was Open wound of foot excluding toes. Diagnoses of Open wound of toe, initial encounter, PVD (peripheral vascular disease) with claudication, and Unable to care for self were also pertinent to this visit. Past Medical History: has a past medical history of Asthma, Back problem, CAD (coronary artery disease), COPD (chronic obstructive pulmonary disease) (HCC), Depression, Diabetes mellitus (HCC), Edema, H/O cardiac catheterization, H/O echocardiogram, Hernia of abdominal wall, History of cardiac cath, History of cardiac cath, History of cardiovascular stress test, History of echocardiogram, Historyof stress test, Hx of blood clots, Hypertension, Hypothyroidism, Leg pain, bilateral, and Wears partial dentures. Past Surgical History: has a past surgical history that includes Cholecystectomy; Hysterectomy; femoral bypass; Cardiac surgery; Cardiac catheterization; vascular surgery; Aorta surgery (05/2016); and Cardiac catheterization (Left, 02/25/2018). Assessment Assessment: Patient is 63 year old female with dx of PVD who presents with B wounds on plantar surface of feet, decreased B LE strength, decreased functional mobility and endurance and decreased safety and balance during transfers and ambulation and would benefit from physical therapy to address all concerns and safely return to PLOF. Treatment Diagnosis: Difficulty walking Specific Instructions for Next Treatment: Once daily on weekends Therapy Prognosis: Good Decision Making: Medium Complexity Requires PT Follow-Up: Yes Activity Tolerance Activity Tolerance: Patient tolerated evaluation without incident;Patient limited by pain Plan Physical Therapy Plan General Plan: 2 times a day 7 days a week Specific Instructions for Next Treatment: Once daily on weekends Current Treatment Recommendations: Strengthening, ROM, Balance training, Functional mobility training, Transfer training, Neuromuscular re-education, Stair training, Gait training, Home exercise program, Safety education & training, Therapeutic activities, Patient/Caregiver education & training, Manual, Endurance training Safety Devices Type of Devices: All shamika prominences offloaded, Patient at risk for falls, All fall risk precautions in place, Call light within reach, Nurse notified, Chair alarm in place, Left in chair Restrictions Restrictions/Precautions Restrictions/Precautions: General Precautions, Fall Risk, Contact Precautions Subjective General Chart Reviewed: Yes Patient assessed for rehabilitation services?: Yes Response To Previous Treatment: Not applicable Family/Caregiver Present: No Referring Practitioner: Oliva Tristan CNP Referral Date : 08/12/24 Diagnosis: PVD, I73.9 Follows Commands: Within Functional Limits Subjective Subjective: Pt reports 8/10 B foot pain and just received pain meds from nurse Social/Functional History Social/Functional History Lives With: Son Type of Home: Apartment Home Layout: One level Home Access: Stairs to enter with rails Entrance Stairs - Number of Steps: 2 Entrance Stairs - Rails: Right Home Equipment: Walker - 4-Wheeled, Oxygen Has the patient had two or more falls in the past year or any fall with injury in the past year?: Yes Receives Help From: Family Prior Level of Assist for ADLs: Independent Prior Level of Assist for Homemaking: Needs assistance Homemaking Responsibilities: Yes Prior Level of Assist for Ambulation: Independent household ambulator, with or without device Prior Level of Assist for Transfers: Independent Active Outside Salesperson: No Patient's Outside Salesperson Info: son Additional Comments: Pt shares IADL's with son Vision/Hearing Vision Vision: Within Functional Limits Hearing Hearing: Within functional limits Cognition Orientation Overall Orientation Status: Within Functional Limits Cognition Overall Cognitive Status: WFL Objective Temp: 97.2 F (36.2 C) Pulse: 94 Heart Rate Source: Monitor Respirations: 18 SpO2: 95 % O2 Device: Nasal cannula BP: (!) 140/65 MAP (Calculated): 90 BP Location: Right upper arm BP Method: Automatic Patient Position: Sitting Gross Assessment AROM: Within functional limits Strength: Generally decreased, functional Bed mobility Supine to Sit: Stand by assistance Scooting: Stand by assistance Transfers Sit to Stand: Contact guard assistance Stand to Sit: Contact guard assistance Stand Pivot Transfers: Contact guard assistance Ambulation Surface: Level tile Device: Rolling Walker Assistance: Contact guard assistance Quality of Gait: Pt amb 5ft bed to chair with CGA and FWW Balance Sitting - Static: Good Sitting - Dynamic: Fair;+ Standing - Static: Fair Standing - Dynamic: Fair;- AM-PAC - Mobility AM-PAC Mobility without Stair Climbing Inpatient How much difficulty turning over in bed?: A Little How much difficulty sitting down on / standing up from a chair with arms?: A Lot How much difficulty moving from lying on back to sitting on side of bed?: A Little How much help from another person moving to and from a bed to a chair?: A Little How much help from another person needed to walk in hospital room?: A Lot AM-PAC Inpatient Mobility without Stair Climbing Raw Score : 13 AM-PAC Inpatient without Stair Climbing T-Scale Score : 38.96 Mobility Inpatient CMS 0-100% Score: 58.44 Mobility Inpatient without Stair CMS G-Code Modifier : CK Goals Short Term Goals Time Frame for Short Term Goals: 20 days Short Term Goal 1: Patient to complete all transfers with SUP and no LOB to decrease fall risk. Short Term Goal 2: Patient to ambulate 100ft with FWW and SUP with no increase in pain and no LOB to improve mobility. Short Term Goal 3: Patient to tolerate 20-30 min of ther ex/act for improved functional strength. Short Term Goal 4: Patient to ascend/descend 2 steps with HRx1 and SUP with no LOB to safely enter her home. Education Patient Education Education Given To: Patient Education Provided: Role of Therapy;Plan of Care;Transfer Training Education Method: Verbal Barriers to Learning: None Education Outcome: Verbalized understanding;Continued education needed Therapy Time Individual Concurrent Group Co-treatment Time In 704 Time Out 716 Minutes 12 Timed Code Treatment Minutes: 11 Minutes Joanie Mireles PT, DPT Cosigned by Oliva Dunlap APRN - CNP at 08/13/2024 1:11 PM EDT * Kirby Birch RD, LD - 08/13/2024 7:22 AM EDT Comprehensive Nutrition Assessment Type and Reason for Visit: Initial, Positive nutrition screen, Wound Nutrition Recommendations/Plan: Encourage oral intakes. Ensure Enlive and Wilner for wound healing Recommend add mvi w/minerals daily Encourage protein foods. 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 History ofweight losses without many actual weights available. Used to be 150# but admits, years ago . Eating mostly once daily at home with use [place] 2 [place] [address] units vit D and may benefit from addition of mvi w/minerals. Discussed and will add Wilner bid and keep the Ensure (even t sandy I suspect she'll eat better with food accessibilty). Denies any n/v or ingestion issues. Noted refusal of Metformin but is on Actos as well for Diabetes (7.2 A1C). Glucose thus far is controlled. Will monitor needs to alter diet and ONS to compensate for Diabetes as indicated. Nutrition Related Findings: active b/s. trace BLE edema. Wound Type: Multiple (feet) Current Nutrition Intake & Therapies: Average Meal Intake: Unable to assess (no PO records) Average Supplements Intake: Unable to assess (no records) ADULT DIET; Regular ADULT ORAL NUTRITION SUPPLEMENT; Breakfast, Lunch, Dinner; Standard High Calorie/High Protein Oral Supplement ADULT ORAL NUTRITION SUPPLEMENT; Breakfast, Dinner; Wound Healing Oral Supplement Anthropometric Measures: Height: 154.9 cm (5' 1 ) [place] Body Weight (IBW): 105 lbs (48 kg) Admission Body Weight: 56 kg (123 lb 6.4 oz) Current Body Weight: 56 kg (123 lb 6.4 oz), 117.5 % IBW. Weight Source: Bed scale Current BMI (kg/m2): 23.3 Usual Body Weight: 56.2 kg (124 lb) (stated, lately. Most weights on record appear stated.) % Weight Change (Calculated): -0.5 Weight Adjustment For: No Adjustment BMI Categories: Normal Weight (BMI 18.5-24.9) Estimated Daily Nutrient Needs: Energy Requirements Based On: Kcal/kg Weight Used for Energy Requirements: Current Energy (kcal/day): 6665-1549 (28-33) Weight Used for Protein Requirements: Current Protein (g/day): 78-90 (1.4-1.6) Method Used for Fluid Requirements: 1 ml/kcal Fluid (ml/day): 1800 Nutrition Diagnosis: Increased nutrient needs related to acute injury/trauma as evidenced by wounds Lab Results Component Value Date NA 140 08/13/2024 K 3.6 (L) 08/13/2024 CL 102 08/13/2024 CO2 27 08/13/2024 BUN 12 08/13/2024 CREATININE 0.7 08/13/2024 GLUCOSE 112 (H) 08/13/2024 CALCIUM 8.4 (L) 08/13/2024 BILITOT <0.2 08/09/2024 ALKPHOS 74 08/09/2024 AST 16 08/09/2024 ALT 9 (L) 08/09/2024 LABGLOM >90 08/13/2024 GFRAA >60 06/20/2021 GLOB NOT REPORTED 04/21/2019 Hemoglobin A1C Date Value Ref Range Status 08/06/2024 7.2 (H) 4.0 - 6.0 % Final Lab Results Component Value Date VITD25 14.9 (L) 07/26/2022 Nutrition Interventions: Food and/or Nutrient Delivery: Continue Current Diet, Start Oral Nutrition Supplement, Continue Oral Nutrition Supplement Nutrition Education/Counseling: Education/Counseling initiated Coordination of Nutrition Care: Continue to monitor while inpatient Plan of Care discussed with: patient Goals: Goals: Meet at least 75% of estimated needs Type of Goal: New goal Previous Goal Met: New Goal Nutrition Monitoring and Evaluation: Behavioral-Environmental Outcomes: None Identified Food/Nutrient Intake Outcomes: Supplement Intake, Food and Nutrient Intake Physical Signs/Symptoms Outcomes: Biochemical Data, Fluid Status or Edema, Skin, Weight Discharge Planning: Continue current diet, Continue Oral Nutrition Supplement Kirby Birch RD, JOE Contact: [phone] * Oliva Dunlap APRN - FABIENNE - 08/13/2024 6:54 AM EDT Images from the original note were not included. Progress Note SUBJECTIVE: Patient seen for f/u of Unable to care for self. She resting in bed no distress. On O2 at 2L. Refuses Metformin. Afebrile. ROS: Constitutional: negative for fevers, and negative for chills. Respiratory: negative for shortness of breath, negative for cough, and negative for wheezing Cardiovascular: negative for chest pain, and negative for palpitations Gastrointestinal: negative for abdominal pain, negative for nausea,negative for vomiting, negative for diarrhea, and negative for constipation All other systems were reviewed with the patient and are negative unless otherwise stated in HPI OBJECTIVE: Vitals: Vitals: 08/13/24 0637 BP: (!) 140/65 Pulse: 94 Resp: 18 Temp: 97.2 F (36.2 C) SpO2: 95% Weight - Scale: 56 kg (123 lb 6.4 oz) Height: 154.9 cm (5' 1 ) Weight Wt Readings from Last 3 Encounters: 08/13/24 56 kg (123 lb 6.4 oz) 08/10/24 59.2 kg (130 lb 8 oz) 08/06/24 63.5 kg (140 lb) Body mass index is 23.32 kg/m . 24HR INTAKE/OUTPUT: Intake/Output Summary (Last 24 hours) at 08/13/2024 0654 Last data filed at 08/13/2024 0514 Gross per 24 hour Intake 360 ml Output 700 ml Net -340 ml Exam: GEN: Awake, alert and oriented x3. EYES: EOMI, pupils equal NECK: Supple. No lymphadenopathy. No carotid bruit CVS: regular rate and rhythm, no audible murmur PULM: dry rales , no acute respiratory distress ABD: Bowels sounds normal. Abdomen is soft. No distention. no tenderness to palpation. EXT: no edema bilaterally . No calf tenderness. NEURO: Moves all extremities. Motor and sensory are grossly intact SKIN: No rashes. No skin lesions. See pics below of BLE 08/12/2024--admission-left foot/toes/heel 08/12/2024--admission-right foot/toes/heel Diagnostic Data: Complete Blood Count: Recent Labs 08/12/24 1101 08/13/24 0535 WBC 7.6 8.8 RBC 4.25 3.97 HGB 11.1* 10.1* HCT 35.7* 34.3* MCV 84.0 86.4 MCH 26.1 25.4 MCHC 31.1 29.4 RDW 19.2* 19.1* PLT 328 305 MPV 9.3 9.1 Last 3 Blood Glucose: Recent Labs 08/12/24 1101 08/13/24 0535 GLUCOSE 89 112* Comprehensive Metabolic Profile: Recent Labs 08/12/24 1101 08/13/24 0535 NA 138 140 K 3.7 3.6* CL 100 102 CO2 28 27 BUN 8 12 CREATININE 0.7 0.7 GLUCOSE 89 112* CALCIUM 8.5* 8.4* Urinalysis: Lab Results Component Value Date/Time NITRU NEGATIVE 01/02/2024 05:05 PM COLORU Yellow 01/02/2024 05:05 PM PHUR 6.0 01/02/2024 05:05 PM PHUR 6.5 05/12/2021 09:39 PM WBCUA 5 TO 10 01/02/2024 05:05 PM RBCUA 0 TO 2 01/02/2024 05:05 PM MUCUS NOT REPORTED 05/12/2021 09:39 PM TRICHOMONAS NOT REPORTED 05/12/2021 09:39 PM YEAST 2+ 05/12/2021 09:39 PM BACTERIA 2+ 01/02/2024 05:05 PM LEUKOCYTESUR SMALL 01/02/2024 05:05 PM UROBILINOGEN Normal 01/02/2024 05:05 PM BILIRUBINUR NEGATIVE 01/02/2024 05:05 PM GLUCOSEU NEGATIVE 01/02/2024 05:05 PM KETUA NEGATIVE 01/02/2024 05:05 PM AMORPHOUS NOT REPORTED 05/12/2021 09:39 PM HgBA1c: Lab Results Component Value Date/Time LABA1C 7.2 08/06/2024 04:50 PM Lactic Acid: Lab Results Component Value Date/Time LACTA 0.7 04/23/2021 01:40 PM LACTA 0.5 02/21/2021 06:55 PM LACTA 1.0 01/17/2021 01:30 AM Troponin: No results for input(s): TROPONINI in the last 72 hours. CRP: Recent Labs 08/12/24 1101 CRP 21.5* Radiology/Imaging: XR FOOT LEFT (MIN 3 VIEWS) Final Result Soft tissue wound at the tip of the 2nd toe. No evidence of osteomyelitis or soft tissue gas XR FOOT RIGHT (2 VIEWS) Final Result No osteomyelitis or soft tissue gas ASSESSMENT / PLAN: MEDICAL DECISION MAKING: Primary Problem(s): Unable to care for self Differential diagnoses: Noncompliance, chronic wounds Condition is a chronic illness with exacerbation, progression or side effects of treatment Condition is stable Treatment plan: Appreciate social services designee-discharge planning-will need SNF PT/OT Up with assistance Imaging: no further imaging studies ordered today Medications: Medications not indicated at this time Medication Monitoring / High Risk Medications: none Chronic wounds of Bilateral Feet Condition is a chronic stable condition Treatment plan: Cancel consult for Dr Newman-out of town. Will continue with his POC at this time Scheduled with Dr Colmenares next week, if still here will consult for evaluation Heels of the bed Wound Care: Betadine to wounds daily She is Diabetic -- Refuses to take medications prescribed Imaging: no further imaging studies ordered today Medications: Continue Augmentin Continue Metformin-REFUSES Nutrition status: at risk for malnutrition Microsoft Application Developer consult initiated I/O Daily weight Monitor Daily intake Nutritional Supplements as tolerated MALNUTRITION ASSESSMENT AND PLAN The following was documented by the Dietitian: I agree with the dietitian's malnutrition assessment. Medical Nutrition Therapy: continue current nutrition therapy, oral diet, and oral supplements Hospital Prophylaxis: DVT: Lovenox Stress Ulcer: PPI Disposition: Shared decision making: All test results, treatment options and disposition options were discussed with the patient today Social determinants of health that may impact management: Pt lives alone and is unable to care for self Code status: Full Code Disposition: [facility] Advanced Care Planning documentation: [x] I have confirmed that the patient's Advance Care Plan is present, Code Status is documented, orsurrogate decision maker is listed in the patient's medical record [If yes , STOP HERE] [] The patient's Advance Care Plan is NOT present because: [] I confirmed today that the patient does not wish or was not able to name a surrogate decision maker or provide and advance care plan. [] Hospice care is currently being provided or has been provided within the calendar year. [] I did NOT confirm today the presence of an Advance Care Plan or surrogate decision maker documented within the patient's medical record. [DOES NOT SATISFY MIPS PERFORMANCE] HILDA Cortes CNP , HILDA, RABBET OPERATOR-C Hospitalist Medicine 08/13/2024, 6:54 AM Cosigned by Osmar Rodirguez MD at 08/13/2024 7:12 PM EDT Associated attestation - Osmar Rodriguez MD - 08/13/2024 7:12 PM EDT Images from the original note were not included. [address], [place], [place], [address] Attestation Patient: Jonatan Olivarez Date of Admission: 08/12/2024 10:20 AM Hospital Day # 1 Date of Evaluation: 08/13/2024 I personally evaluated and examined the patient [id number] in conjunction with the PA/RABBET OPERATOR and agree with the management and dispostition of the patient. Please see the PA/RABBET OPERATOR's note for full details.My sims findings are: SUBJECTIVE: Patient seen for follow up of Unable to care for self. She is doing about the same as prior. Discussed plan of care with the patient. We discussed why her foot pain/ulcers are taking a long time to heal. She did indicate that she had been smoking again while at home. She had been taking her medications as prescribed. VSS, afebrile. Pain is under control this AM. OBJECTIVE: Vitals: Temp: 98.6 F (37 C) BP: 130/71 Respirations: 18 Pulse: 67 SpO2: 97 % Weight Wt Readings from Last 3 Encounters: 08/13/24 56 kg (123 lb 6.4 oz) 08/10/24 59.2 kg (130 lb 8 oz) 08/06/24 63.5 kg (140 lb) Body mass index is 23.32 kg/m . 24HR INTAKE/OUTPUT: Intake/Output Summary (Last 24 hours) at 08/13/2024 191 Last data filed at 08/13/2024 1529 Gross per 24 hour Intake 1080 ml Output 800 ml Net 280 ml Exam: GEN: Awake, alert and oriented x3. EYES: EOMI, pupils equal NECK: Supple. No lymphadenopathy. No carotid bruit CVS: regular rate and rhythm, no audible murmur PULM: diminished with inspiratory and expiratory wheezing bilaterally, no acute respiratory distress ABD: Bowels sounds normal. Abdomen is soft. No distention. no tenderness to palpation. EXT: no edema bilaterally . No calf tenderness. NEURO: Moves all extremities. Motor and sensory are grossly intact SKIN: No rashes. No skin lesions. Multiple skin ulcerations noted of both lower extremities. DATA: Complete Blood Count: Recent Labs 08/12/24 1101 08/13/24 0535 WBC 7.6 8.8 RBC 4.25 3.97 HGB 11.1* 10.1* HCT 35.7* 34.3* MCV 84.0 86.4 RDW 19.2* 19.1* PLT 328 305 Recent Labs 08/12/24 1101 08/13/24 0535 NEUTROABS 5.32 5.72 LYMPHOPCT 16* 18* LYMPHSABS 1.18 1.55 MONOPCT 7 10 BASOPCT 1 1 IMMGRAN 0 0 CMP: Lab Results Component Value Date GLUCOSE 112 (H) 08/13/2024 BUN 12 08/13/2024 CREATININE 0.7 08/13/2024 NA 140 08/13/2024 K 3.6 (L) 08/13/2024 CALCIUM 8.4 (L) 08/13/2024 CL 102 08/13/2024 CO2 27 08/13/2024 BILITOT <0.2 08/09/2024 ALKPHOS 74 08/09/2024 ALT 9 (L) 08/09/2024 AST 16 08/09/2024 UA: Lab Results Component Value Date COLORU Yellow 01/02/2024 WBCUA 5 TO 10 01/02/2024 RBCUA 0 TO 2 01/02/2024 LEUKOCYTESUR SMALL (A) 01/02/2024 GLUCOSEU NEGATIVE 01/02/2024 KETUA NEGATIVE 01/02/2024 PROTEINU 2+ (A) 01/02/2024 HGBUR NEGATIVE 01/02/2024 CASTUA NOT REPORTED 05/12/2021 BACTERIA 2+ (A) 01/02/2024 YEAST 2+ (A) 05/12/2021 Lactic Acid: Lab Results Component Value Date/Time LACTA 0.7 04/23/2021 01:40 PM LACTA 0.5 02/21/2021 06:55 PM LACTA 1.0 01/17/2021 01:30 AM High Sensitivity Troponin: No results for input(s): TROPHS in the last 72 hours. Radiology/Imaging: XR FOOT LEFT (MIN 3 VIEWS) Final Result Soft tissue wound at the tip of the 2nd toe. No evidence of osteomyelitis or soft tissue gas XR FOOT RIGHT (2 VIEWS) Final Result No osteomyelitis or soft tissue gas ASSESSMENT: Principal Problem: Unable to care for self Active Problems: Diabetic ulcer of toe of left foot associated with type 2 diabetes mellitus, with fat layer exposed(HCC) Chronic pain syndrome Claudication in peripheral vascular disease Diabetic ulcer of left heel associated with type 2 diabetes mellitus, with fat layer exposed (HCC) Oxygen dependent - 2L per baseline Resolved Problems: * No resolved hospital problems. * PLAN: I agree with the plan as outlined in the RABBET OPERATOR/PA's note Disposition: Discharge plan is pending Please note that this chart was generated using voice recognition [employer] dictation software. Although every effort was made to ensure the accuracy of this automated skidder lever operator, some errors in skidder lever operator may have occurred. Osmar Rodriguez MD 08/13/2024 7:11 PM * Ashley He RN - 08/13/2024 6:38 AM EDT Ladle Operator to bedside to complete morning assessment. Upon entry to room, pt awake and sitting in bed, respirations even and unlabored. Upon entry to the room, the pt states that her O2 must've fallen off and when her SpO2 was checked, it was at 67%. NC reapplied and initiated the oxygen at 4 L/min until her SpO2 increased to 95%; decreased the O2 back to the 2 L/min NC which is her baseline. Vitals obtained and assessment completed, see flow sheet for details. Pt refused the metformin this morning, stating she wants to take the Actos because the metformin makes her feel funky. Pt denies needs from chief writer at this time. Call light in reach. Care ongoing. * Hyun Cristobal RN - 08/12/2024 6:36 PM EDT Patient assessment and vitals completed as charted. Patient A&OX4 and cooperative with assessment. Patient c/o pain in her feet rating 8/10. Patient educated on using betadine on her feet and leaving wounds open to air to help keep them clean and dry. Patient verbalized understanding. Patient aware that PCP will round in the morning for further concerns. Call light within patients reach and bed alarm on. Plan of care ongoing. * Marquita Brown RN - 08/12/2024 6:[address] Newman replied to message stating he is out of the office with no coverage until Saturday. Oliva LOVING aware. * Marquita Brown RN - 08/12/2024 5:45 PM EDT This RN bedside to complete wound care. Patient states her son looked up information and states it is not good to leave wounds open to air. Updated patient on current wound care order. States she does not wish to complete betadine at this time until we get different orders to dress wounds with somet tanna over the betadine. Care ongoing. * Marquita Brown RN - 08/12/2024 5:00 PM EDT Patient requesting to wait for dressing changes until after dinner and pain medication kicks in. Care ongoing. * Susanne Birch, PT - 08/12/2024 4:58 PM EDT [facility] Inpatient/Observation/Outpatient Rehabilitation Date: 08/12/2024 Patient Name: Jonatan Olivarez [] Inpatient Acute/Observation [] Outpatient : 1960 [x] Pt refused/declined therapy at this time due to: Pt declining PT eval until morning. Therapist/System Designer will attempt to see this patient, at our earliest opportunity. SUSANNE BIRCH, PT Date: 08/12/2024 * Darling Welsh, LEADERSHIP PROGRAM INTERN - 08/12/2024 4:10 PM EDT RESPIRATORY ASSESSMENT PROTOCOL Patient Name: Jonatan Olivarez Room#: 0301/0301-01 : 1960 Admitting diagnosis: PVD (peripheral vascular disease) with claudication [I73.9] Open wound of toe, initial encounter [S91.109A] Open wound of foot excluding toes [S91.309A] Unable to care for self [Z78.9] Medical History: Past Medical History: Diagnosis Date Asthma Back problem Bulging discs (2 or 3), 1 cracked & 1 blackened discs CAD (coronary artery disease) stents x 3; BMS to LAD 12/2010;SPARKLE to RCA 01/2011, NL LV COPD (chronic obstructive pulmonary disease) (HCC) Depression Diabetes mellitus (HCC) Edema chevy legs feet H/O cardiac catheterization 01/01/2011 H/O echocardiogram 09/03/2019 EF 65% evidence of mild grade I diastolic dysfunction seen Hernia of abdominal wall 2012 History of cardiac cath 03/17/2020 [facility]/Dr. Stephens/Left Radial History of cardiac cath 03/17/2020 severe single vessel disease involving the RCA. Mod 2 vessel disease in the Circumflex and D1 branch fo the LAD Nomrla LVEDP Consults IR cardiology for likely angioplasty and or stent of pts severe stenosis History of cardiovascular stress test 10/15/2012 Abnormal myocardial perfusion study, small to mod perfusion defect of mild intensity in the anterolateral and lateral regions during stress imaging, LV function NL, no wall motion abnormalities, No significant EKG evidence of ischemia during monitoring w/o significant arrhythmias. History of echocardiogram 02/24/2018 EF 60%. Mildly increased LV wall thickness. Evidence of mild diastolic dysfunction seen. History of stress test 04/23/2017 Largerly normal myocardial perfusion imaging with soft tissue artifact, but without signficant evidence of myocardial ischemia or infarction. EF 73%. Hx of blood clots abdomen Hypertension Hypothyroidism Leg pain, bilateral rate 10 Wears partial dentures upper PATIENT ASSESSMENT LABORATORY DATA Hematology: Lab Results Component Value Date/Time WBC 7.6 08/12/2024 11:01 AM RBC 4.25 08/12/2024 11:01 AM RBC 4.28 05/21/2011 08:26 AM HGB 11.1 08/12/2024 11:01 AM HCT 35.7 08/12/2024 11:01 AM PLT 328 08/12/2024 11:01 AM PLT 205 05/21/2011 08:26 AM Chemistry: Lab Results Component Value Date/Time PHART 7.355 12/13/2022 05:39 AM CQO3AHF 46.8 12/13/2022 05:39 AM PO2ART 57.3 12/13/2022 05:39 AM C5UKUNHP 88.5 12/13/2022 05:39 AM EXS4PEE 25.5 12/13/2022 05:39 AM PBEA NOT REPORTED 05/03/2021 07:45 AM NBEA 0.4 12/13/2022 05:39 AM VITALS Pulse: 87 Respirations: 18 BP: (!) 125/92 SpO2: 92 % O2 Device: Nasal cannula Temp: 96.9 F (36.1 C) SKIN COLOR [x] Normal [] Pale [] Dusky [] Cyanotic RESPIRATORY PATTERN [x] Normal [] Dyspnea [] Devin-Gallardo [] Kussmaul [] Biots AMBULATORY [] Yes [] No [x] With Assistance Patient Acuity 0 1 2 3 4 Score Level of Consciousness (LOC) [x] Alert & Oriented or Pt normal LOC [] Confused;follows directions [] Confused & uncooper-ative [] Obtunded [] Comatose 0 Respiratory Rate (RR) [] Reg. rate & pattern. 12 - 20 bpm [] Increased RR. Greater than 20 bpm [x] SOB w/ exertion or RR greater than 24 bpm [] Access- ory muscle use at rest. Abn. resp. [] SOB at rest. 2 Bilateral Breath Sounds (BBS) [] Clear [] Diminish-ed bases [x] Diminish-ed t/o, or rales [] Sporadic, scattered wheezes or rhonchi [] Persistentwheezes and, or absent BBS 2 Cough [x] Strong, effective, & non-prod. [] Effective & prod. Less than 25 ml (2 TBSP) over past 24 hrs [] Ineffective & non-prod to less than 25 ML over past 24 hrs [] Ineffective and, or greater than 25 ml sputum prod. past 24 hrs. [] Nonspon- taneous; Requires suctioning 0 Pulmonary History (PULM HX) [] No smoking and no chronic pulmonary history [] Former smoker. Quit over 12 mos. ago [] Current smoker or quit w/ in 12 mos [x] Pulm. History and, or 20 pk/yr smoking hx [] Admitted w/ acute pulm. dx and, or has been admitted w/ pulm. dx 2 or more times over past 12 mos 3 Surgical History this Admit (SURG HX) [x] No surgery [] General surgery [] Lower abdominal [] Thoracic or upper abdominal [] Thoracic w/ pulm. disease 0 Chest X-Ray (CXR)/CT Scan [x] Clear or not applicable [] Not available [] Atelectasis or pleural effusions [] Localized infiltrate or pulm. edema [] Con-solidated Infiltrates, bilateral, or in more than 1 lobe 0 TOTAL ACUITY: 7 CARE PLAN If Acuity Level is 2, 3, or 4 in any of the following: [] BILATERAL BREATH SOUNDS (BBS) [x] PULMONARY HISTORY (PULM HX) [x] Respiratory Rate (RR) Goal: Improve respiratory functions in patients with airway disease and decrease WOB [x] AEROSOL PROTOCOL Total Acuity: 14-28 [] Secondary Assessment in 24 hrs Total Acuity: 9-13 [] Secondary Assessment in 24 hrs Total Acuity: 4-8 [x] Secondary Assessment in 24 hrs Total Acuity: 0-3 [] Secondary Assessment in 48 hrs HHN AEROSOL THERAPY with [physician-ordered bronchodilator(s)] q 4 & Albuterol PRN q2 hrs. Breath-Actuated Neb if BBS Acuity = 4, and pt. can use MP. Notify physician if condition deteriorates. HHN AEROSOL THERAPY with [physician-ordered bronchodilator(s)] QID and Albuterol PRN q4 hrs. Breath-Actuated Neb if BBS Acuity = 4, and pt. can use MP. Notify physician if condition deteriorates. MDI THERAPY with 2 actuations of [physician-ordered bronchodilator(s)] via spacer TID Albuterol and PRN q4 hrs. If unable to utilize MDI: HHN [physician-ordered bronchodilator(s)] TID and Albuterol PRN q4 hrs. Notify physician if condition deteriorates. MDI THERAPY with [physician-ordered bronchodilator(s)] via spacer TID PRN. If unable to utilize MDI: HHN [physician-ordered bronchodilator(s)] TID PRN. Notify physician if condition deteriorates. If Acuity Level is 2, 3, or 4 in any of the following: [] COUGH [] SURGICAL HISTORY (SURG HX) [] CHEST XRAY (CXR) Goal: Improvement in sputum mobilization in patients with ineffective airway clearance. Reverse atelectasis. [] Bronchopulmonary Hygiene Protocol Total Acuity: 14-28 [] Secondary Assessment in 24 hrs Total Acuity: 9-13 [] Secondary Assessment in 24 hrs Total Acuity: 4-8 [] Secondary Assessment in 24 hrs Total Acuity: 0-3 [] Secondary Assessment in 48 hrs METANEB QID with [physician-ordered bronchodilator(s)] if CXR Acuity = 4; otherwise: PD&P, Oscillatory Therapy, or Vest QID & PRN AND PEP QID & PRN NT Sxn PRN for ineffective cough METANEB QID with [physician-ordered bronchodilator(s)] if CXR Acuity = 4; otherwise: PD&P, Oscillatory Therapy or Vest QID & PRN AND PEP QID & PRN NT Sxn PRN for ineffective cough PD&P, Oscillatory Therapy, or Vest TID & PRN AND PEP TID & PRN Instruct patient to self-perform IS q1hr WA If Acuity Level is 2 or above in the following: [] PULMONARY HISTORY (PULM HX) Goal: Assist patient in quitting smoking to slow or stop the progression of lung disease. [] Smoking Cessation Protocol SMOKING CESSATION EDUCATION provided according to policy [id number]_[email or web address]: (gordo with an X) ____Yes ____ No ____ NA Smoking Cessation Booklet given: ____Yes ____No ____Patient Refused [facility] in [facility] [place] Discharge instructions* Discharge Instr - DUSTIN* Erin Stevens RN - 08/17/2024 8:05 AM EDT Images from the original note were not included. Continuity of Care Form Patient Name: Jonatan Olivarez : 1960 Admit date: 08/12/2024 Discharge date: 08/17/2024 Code Status Order: Full Code Advance Directives: Admitting Physician: Osmar Rodriguez MD PCP: Osmar Rodriguez MD Discharging Nurse: Erin Stevens RN Discharging Hospital Unit/Room#: 0301/0301-01 Discharging Unit Emergency Contact: Extended Emergency Contact Information Primary Emergency Contact: Serafin Olivarez Mobile 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 No Past Surgical History: Past Surgical History: Procedure Laterality Date AORTA SURGERY 05/2016 [facility] CARDIAC CATHETERIZATION heart stent x3 CARDIAC CATHETERIZATION Left 02/25/2018 Right Ulnar/[facility]/ CARDIAC SURGERY CHOLECYSTECTOMY FEMORAL BYPASS HYSTERECTOMY (CERVIX STATUS UNKNOWN) VASCULAR SURGERY blood clot removed after hysto Immunization History: Immunization History Administered Date(s) Administered Influenza A ([id number]) Vaccine PF IM 03/17/2009 Influenza Virus Vaccine 12/30/2013, 02/10/2015, 01/15/2017, 06/06/2018, 12/30/2018, 01/12/2019 Influenza, AFLURIA, FLUZONE, (age3 y+), IM, Trivalent MDV, 0.5mL 01/12/2019 Influenza, FLUZONE High Dose, (age 65 y+), IM, Trivalent PF, 0.5mL 02/10/2015, 01/15/2017 Influenza, Quadv, 6 mo and older, IM, PF (Flulaval, Fluarix) 06/07/2018 Pneumococcal, PCV-13, PREVNAR 13, (age 6w+), IM, 0.5mL 06/07/2018 Pneumococcal, PPSV23, PNEUMOVAX 23, (age 2y+), SC/IM, 0.5mL 04/26/2019 TDaP, ADACEL (age 10y-64y), BOOSTRIX (age 10y+), IM, 0.5mL 01/07/2017, 01/07/2024 Active Problems: Patient Active Problem List Diagnosis Code Claudication in peripheral vascular disease I73.9 Stable angina I20.89 Abnormal nuclear stress test R94.39 Smoking greater than 40 pack years F17.210 CAD S/P percutaneous coronary angioplasty I25.10, Z98.61 Ventral hernia K43.9 Tobacco abuse counseling Z71.6 Tobacco abuse disorder Z72.0 Pain in lower limb M79.606 Dizziness R42 Intolerance of drug Z78.9 Atherosclerosis of both carotid arteries I65.23 Hypothyroidism E03.9 Diabetic ulcer of toe of left foot associated with type 2 diabetes mellitus, with fat layer exposed([facility]) E11.621, L97.522 Diabetic polyneuropathy associated with type 2 diabetes mellitus ([facility]) E11.42 Angina, class III I20.9 COPD with exacerbation ([facility]) J44.1 Hx of blood clots Z86.718 CAD (coronary artery disease) I25.10 COPD exacerbation ([facility]) J44.1 Community acquired bacterial pneumonia J15.9 COPD (chronic obstructive pulmonary disease) ([facility]) J44.9 Diabetes mellitus ([facility]) E11.9 Hypertension I10 Pneumonia due to infectious organism J18.9 AMS (altered mental status) R41.82 E. coli UTI N39.0, B96.20 Unstable angina ([facility]) I20.0 Acute coronary syndrome ([facility]) I24.9 S/P cardiac cath Z98.890 S/P angioplasty with stent Z95.820 Cellulitis of left lower extremity L03.116 Acute on chronic diastolic heart failure ([facility]) I50.33 Chronic pain of right knee M25.561, G89.29 Chronic right hip pain M25.551, G89.29 Sacral pain M53.3 Lumbar back pain with radiculopathy affecting right lower extremity M54.16 Chronic left shoulder pain M25.512, G89.29 Leg edema R60.0 Hyperlipidemia E78.5 Depression F32.A Anxiety F41.9 Muscle spasm M62.838 Right hip pain M25.551 Urinary incontinence R32 Abdominal aortic aneurysm without rupture I71.40 Pneumonia due to COVID-19 virus -- Not Vaccinated U07.1, J12.82 Respiratory distress R06.03 Hypovitaminosis D E55.9 Weakness generalized R53.1 Malnutrition E46 Right sided abdominal pain R10.9 Mass of pancreas K86.89 Nausea R11.0 Sleeping difficulty G47.9 Insomnia G47.00 Diarrhea R19.7 Chronic diastolic congestive heart failure (HCC) I50.32 Bronchitis J40 Cystic mass of pancreas K86.2 Pancreatic mass K86.89 Left leg cellulitis L03.116 Excessive ear wax, bilateral H61.23 Shortness of breath R06.02 Recurrent abdominal hernia without obstruction or gangrene K45.8 Right lower quadrant abdominal mass R19.03 Chronic left hip pain M25.552, G89.29 Cystitis N30.90 Chronic pain syndrome G89.4 Personal history of tobacco use Z87.891 Functional incontinence R39.81 Non-recurrent acute suppurative otitis media of left ear without spontaneous rupture of tympanic membrane H66.002 Chronic cough R05.3 Chronic obstructive pulmonary disease ([facility]) J44.9 Chronic suppurative otitis media of left ear H66.3X2 Mass of left thigh R22.42 Primary hypertension I10 Left hand pain M79.642 Acute bilateral low back pain with bilateral sciatica M54.42, M54.41 Hyperglycemia R73.9 Hypoxia R09.02 Chronic obstructive pulmonary disease with acute exacerbation ([facility]) J44.1 Chest congestion R09.89 Hernia of abdominal wall K43.9 Acute congestive heart failure, unspecified heart failure type ([facility]) I50.9 Spleen hematoma S36.029A Anemia D64.9 Heart failure ([facility]) I50.9 Elevated hemoglobin A1c R73.09 Generalized abdominal pain R10.84 COPD with acute exacerbation ([facility]) J44.1 Chronic coughing R05.3 Allergic rhinitis J30.9 Acute lower GI bleeding K92.2 Hypertensive emergency I16.1 Laceration of spleen S36.039A Myocardial infarction ([facility]) I21.9 PRES (posterior reversible encephalopathy syndrome) I67.83 Presence of stent in coronary artery Z95.5 Pulmonary emboli ([facility]) I26.99 Pulmonary HTN ([facility]) I27.20 Spleen injury S36.00XA Spondylosis of lumbar spine M47.816 Traumatic skin ulcer, limited to breakdown of skin ([facility]) L98.491 Ulcer of left great toe due to diabetes mellitus ([facility]) E11.621, L97.529 Upper GI bleed K92.2 Spinal stenosis of lumbar region M48.061 Breast cancer screening by mammogram Z12.31 Neuropathy G62.9 Cellulitis L03.90 Dry skin L85.3 Disorder of arteries and arterioles, unspecified I77.9 Closed fracture of pelvis ([facility]) S32.9XXA Closed head injury S09.90XA Closed fracture of nasal bone S02.2XXA Viral infection, unspecified B34.9 Severe obesity ([facility]) E66.01 Postoperative state Z98.890 Numbness R20.0 Laceration of nose S01.21XA Gastric ulcer without hemorrhage or perforation K25.9 Transient alteration of awareness R40.4 Restlessness and agitation R45.1 Erythematous condition, unspecified L53.9 Pain in leg, unspecified M79.606 Ischemic rest pain of lower extremity M79.606, I99.8 Acute lower gastrointestinal hemorrhage K92.2 Abdominal aortic aneurysm (AAA) without rupture I71.40 Vomiting R11.10 Disorder of circulatory system I99.9 Musculoskeletal problem M79.9 Lower GI bleed K92.2 Weight loss R63.4 Diabetic ulcer of left heel associated with type 2 diabetes mellitus, with fat layer exposed ([facility]) E11.621, L97.422 Mouth sore K13.79 Acute insomnia G47.00 Fall W19.XXXA Cellulitis of lower extremity, unspecified laterality L03.119 Oxygen dependent - 2L per baseline Z99.81 Unable to care for self Z78.9 Isolation/Infection: Isolation Contact Patient Infection Status Infection Onset Added Last Indicated Last Indicated By Review Planned Expiration MDRO (multi-drug resistant organism) 01/06/24 01/06/24 Fátima Del Castillo RN E.Coli Urine Resolved Infection Onset Added Last Indicated Last Indicated By Resolved Resolved By COVID-19 04/23/21 04/23/21 04/23/21 COVID-19, Rapid 05/16/21 Seth Prajapati RN MRSA 07/06/13 07/06/13 Oliva Dunlap APRN - TRUST ADMINISTRATOR 03/18/20 Seth Prajapati RN 07/02/2013 wound--right groin 2 negative swabs 07/2019 Nurse Assessment: Last Vital Signs: BP (!) 134/53 Pulse 73 Temp 99 F (37.2 C) (Temporal) Resp 16 Ht 1.549 m (5' 1 ) Wt 56.3 kg (124 lb 3.2 oz) SpO2 95% BMI 23.47 kg/m Last documented pain score (0-10 scale): Pain Level: 8 Last Weight: Wt Readings from Last 1 Encounters: 08/17/24 56.3 kg (124 lb 3.2 oz) Mental Status: oriented and alert IV Access: - None Nursing Mobility/ADLs: Walking Assisted Transfer Assisted Bathing Assisted Dressing Assisted Toileting Assisted Feeding Independent Washer Meat Assisted Med Delivery whole Wound Care Documentation and Therapy: Wound 01/24/17 Toe (Comment which one) Left #2 left great toe (Active) Wound Image 08/12/24 1213 Wound Type Wound 08/12/24 1213 Wound Cleansed Irrigated with saline 08/12/24 1213 Wound Width (cm) 1 cm 08/12/24 1213 Number of days: 2761 Wound 12/13/22 Toe (Comment which one) Left abrasion (Active) Wound Cleansed Betadine/povidone iodine 08/17/24 0651 Dressing/Treatment Open to air 08/17/24 0651 Wound Length (cm) 2 cm 08/12/24 1215 Wound Width (cm) 1.5 cm 08/12/24 1215 Wound Surface Area (cm^2) 3 cm^2 08/12/24 1215 Change in Wound Size % (l*w) -200 08/12/24 1215 Wound Assessment Dry 08/17/24 0651 Drainage Amount None (dry) 08/17/24 0651 Odor None 08/17/24 0651 Felicity-wound Assessment Dry/flaky;Warm 08/17/24 0651 Margins Undefined edges 08/12/24 1836 Number of days: 612 Wound 12/13/22 Heel Left redness (Active) Wound Image 08/12/24 1216 Wound Cleansed Betadine/povidone iodine 08/17/24 0651 Dressing/Treatment Open to air 08/17/24 0651 Wound Length (cm) 3.5 cm 08/12/24 1216 Wound Width (cm) 2 cm 08/12/24 1216 Wound Surface Area (cm^2) 7 cm^2 08/12/24 1216 Change in Wound Size % (l*w) -75 08/12/24 1216 Wound Assessment Dry 08/17/24 0651 Drainage Amount None (dry) 08/17/24 0651 Odor None 08/17/24 0651 Felicity-wound Assessment Dry/flaky;Warm 08/17/24 0651 Margins Undefined edges 08/12/24 1836 Number of days: 612 Wound 12/13/22 Heel Left 2 scabs measuring 1x1 & 0.4x1 (Active) Wound Image 08/12/24 1219 Wound Cleansed Betadine/povidone iodine 08/17/24 0651 Dressing/Treatment Open to air 08/17/24 0651 Wound Assessment Dry 08/17/24 0651 Drainage Amount None (dry) 08/17/24 0651 Odor None 08/17/24 0651 Felicity-wound Assessment Warm;Dry/flaky 08/17/24 0651 Margins Undefined edges 08/12/24 1836 Number of days: 612 Wound 08/12/24 Ankle Left;Lateral [id number] (Active) Wound Image 08/12/24 1221 Wound Cleansed Betadine/povidone iodine 08/17/24 0651 Dressing/Treatment Open to air 08/17/24 0651 Wound Assessment Dry 08/17/24 0651 Drainage Amount None (dry) 08/17/24 0651 Odor None 08/17/24 0651 Felicity-wound Assessment Warm;Dry/flaky 08/17/24 0651 Margins Undefined edges 08/12/24 1836 Number of days: 4 Wound 08/12/24 Toe (Comment which one) Right [id number] (Active) Wound Image 08/12/24 1227 Wound Cleansed Betadine/povidone iodine 08/17/24 0651 Dressing/Treatment Open to air 08/17/24 0651 Wound Assessment Dry 08/17/24 0651 Drainage Amount None (dry) 08/17/24 0651 Odor None 08/17/24 0651 Felicity-wound Assessment Dry/flaky 08/17/24 0651 Margins Undefined edges 08/12/24 1836 Number of days: 4 Wound 08/12/24 Toe (Comment which one) Right [id number] (Active) Wound Cleansed Betadine/povidone iodine 08/17/24 0651 Dressing/Treatment Open to air 08/17/24 0651 Wound Assessment Dry 08/17/24 0651 Drainage Amount None (dry) 08/17/24 0651 Odor None 08/17/24 0651 Felicity-wound Assessment Warm;Dry/flaky 08/17/24 0651 Margins Undefined edges 08/12/24 1836 Number of days: 4 Wound 08/12/24 Toe (Comment which one) Right 0.5cmx0.5cm (Active) Wound Cleansed Betadine/povidone iodine 08/17/24 0651 Dressing/Treatment Open to air 08/17/24 0651 Wound Assessment Dry 08/17/24 0651 Drainage Amount None (dry) 08/17/24 0651 Odor None 08/17/24 0651 Felicity-wound Assessment Dry/flaky;Warm 08/17/24 0651 Margins Undefined edges 08/12/24 1836 Number of days: 4 Wound 08/12/24 Heel Right;Plantar [id number] (Active) Wound Image 08/12/24 1228 Wound Cleansed Betadine/povidone iodine 08/17/24 0651 Dressing/Treatment Open to air 08/17/24 0651 Wound Assessment Dry 08/17/24 0651 Drainage Amount None (dry) 08/17/24 0651 Odor None 08/17/24 0651 Felicity-wound Assessment Warm;Dry/flaky 08/17/24 0651 Margins Undefined edges 08/12/24 1836 Number of days: 4 Wound 08/12/24 Foot Right;Lateral 2cmx1.5cm (Active) Wound Image 08/12/24 1226 Wound Cleansed Betadine/povidone iodine 08/17/24 0651 Dressing/Treatment Open to air 08/17/24 0651 Wound Assessment Dry 08/17/24 0651 Drainage Amount None (dry) 08/17/24 0651 Odor None 08/17/24 0651 Felicity-wound Assessment Warm;Dry/flaky 08/17/24 0651 Margins Undefined edges 08/12/24 1836 Number of days: 4 Elimination: Continence: Bowel: Yes Bladder: Yes Urinary Catheter: None Colostomy/Ileostomy/Ileal Conduit: No Date of Last BM: 08/17/2024 Intake/Output Summary (Last 24 hours) at 08/17/2024 0806 Last data filed at 08/17/2024 0527 Gross per 24 hour Intake 1320 ml Output 975 ml Net 345 ml I/O last 3 completed shifts: In: 1880 [P.O.:1880] Out: 1275 [Urine:1275] Safety Concerns: History of Falls (last 30 days) and At Risk for Falls Impairments/Disabilities: None Nutrition Therapy: Current Nutrition Therapy: - Oral Diet: General Routes of Feeding: Oral Liquids: No Restrictions Daily Fluid Restriction: no Last Modified Barium Swallow with Video (Video Swallowing Test): not done Treatments at the Time of Hospital Discharge: Respiratory Treatments: See MAR Oxygen Therapy: is on oxygen at 2 L/min per nasal cannula. Ventilator: - No ventilator support Rehab Therapies: Physical Therapy and Occupational Therapy Weight Bearing Status/Restrictions: No weight bearing restrictions Other Medical Equipment (for information only, NOT a DME order): walker and bedside commode Other Treatments: Apply betadine once daily to foot wounds (have been doing it on survey research associate). Patient's personal belongings (please select all that are sent with patient): Dentures upper and lower, bag of clothes, cell phone, cobol programmer, notebook. RN SIGNATURE: CASE MANAGEMENT/SOCIAL WORK SECTION Inpatient Status Date: 08/12/24 Readmission Risk Assessment Score: [facility] RISK OF UNPLANNED READMISSION 2.0 19.7 Total Score Discharging to Facility/ Agency Name: [facility] Address:[place], [place] Fax: Dialysis Facility (if applicable) Name: Address: Dialysis Schedule: Phone: Fax: Label Remover/Car Seat Maker signature: PHYSICIAN SECTION Prognosis: Fair Condition at Discharge: Stable Rehab Potential (if transferring to Rehab): Fair Recommended Labs or Other Treatments After Discharge: na Physician Certification: I certify the above information and transfer of Jonatan Olivarez is necessary for the continuing treatment of the diagnosis listed and that she requires Penitentiary Facility for greater 30 days. Update Admission H&P: No change in H&P PHYSICIAN SIGNATURE: [facility] [place] History of Present illness Narrative* Ly Constantino RN - 08/10/2024 6:30 PM EDT Ladle Operator at bedside to complete evening assessment. Upon entry to room, pt in bed, respirations unlabored while on 2L NC. Vitals obtained and assessment completed, see flow sheet for details. Pt deniesneeds from chief writer at this time. Call light in reach. Care is ongoing. * Erika Vivar PTA - 08/10/2024 2:54 PM EDT [facility] Inpatient/Observation/Outpatient Rehabilitation Date: 08/10/2024 Patient Name: Jonatan Olivarez [x] Inpatient Acute/Observation [] Outpatient : 1960 [x] Pt refused/declined therapy at this time due to: Declined, just returned to bed and L foot withincreased pain, 2nd attempt pt. Declined stating she is now leaving today. [] Pt cancelled due to: [] No Reason Given [] Sick/ill [] Other: [] Evaluation held by RN/Provider/Physical Therapist due to: [] High Heart Rate [] High Blood Pressure [] Orthopedic Consult [] Hgb < 7 [] Other: [] Pt ordered brace per physician request: [] Proper fit will be completed and education for wearing/skin checks [] Pt does not require skilled services due to: Therapist/System Designer will attempt to see this patient, at our earliest opportunity. Erika Vivar, VAMP LINER Date: 08/10/2024 Cosigned by Susanne Birch, PT at 08/10/2024 3:04 PM EDT * Corie Robertson RN - 08/10/2024 1:10 PM EDT Ladle Operator completed wound care and placed new wound dressing at this time. * Anjelica Carrington OT - 08/10/2024 10:59 AM EDT Occupational Therapy Facility/Department: [facility] Daily Treatment Note NAME: Jonatan Olivarez : 1960 Date of Service: 08/10/2024 Discharge Recommendations: Continue to assess pending progress Patient Diagnosis(es): The primary encounter diagnosis was Claudication in peripheral vascular disease. Diagnoses of PAD (peripheral artery disease), Ulcer of both feet with fat layer exposed (HCC), Oxygen dependent - 2L per baseline, Cellulitis of lower extremity, unspecified laterality, and Fall,subsequent encounter were also pertinent to this visit. Assessment Activity Tolerance: Patient tolerated treatment well;Patient limited by pain;Patient limited by fatigue;Patient limited by endurance Discharge Recommendations: Continue to assess pending progress Plan Occupational Therapy Plan Times Per Day: Once a day Days Per Week: 7 Days Current Treatment Recommendations: Strengthening;Balance training;Functional mobility training;Endurance training;Patient/Caregiver education & training;Safety education & training;Self-Care / ADL;Equipment evaluation, education, & procurement;ROM Restrictions Contact, fall risk Subjective Subjective Subjective: Pt seated up in chair, refused out of chair ax, reporting she has already been in the bathroom this morning. Pt agreeable to B UE ther-ex. Pain: Pt reports pain 8/10 in back, B LEs and feet. Pt explained that recent fall has caused occasional pain in L UE. Orientation Overall Orientation Status: Within Normal Limits Pain: L foot 7/10 Cognition Overall Cognitive Status: WFL Objective OT Exercises Exercise Treatment: Completed B UE ther-ex using resistive thera-band x15 reps for shoulders, biceps, triceps, and pecs. Pt refused further ex. Safety Devices Type of Devices: All fall risk precautions in place;Call light within reach;Chair alarm in place;Left in chair Patient Education Education Given To: Patient Education Provided: Role of Therapy;Plan of Care Education Provided Comments: Educated pt on need for UE strengthening to support functional transfer and ADL safety and decrease likelihood of additional falls. Education Method: Verbal Education Outcome: Verbalized understanding Goals Short Term Goals Time Frame for Short Term Goals: 21 visits Short Term Goal 1: Patient to be educated on d/c folder, AE/DME and home safety to ensure safe and independent return home. Short Term Goal 2: Patient to engage in 15 minutes of ther ex/ther act to improve strength and activity tolerance for ADL. Short Term Goal 3: Patient to complete ADL routine c mod I c decrease risk for falls to ensure safeand independent return home. Short Term Goal 4: Patient to tolerate 3+ minutes of dynamic standing during functional task of choice to improve balance and safety during ADL and mobility tasks. Therapy Time Individual Concurrent Group Co-treatment Time In 1041 Time Out 1054 Minutes 13 Anjelica Carrington OT * Erika Vivar, VAMP LINER - 08/10/2024 10:44 AM EDT Physical Therapy Facility/Department: [facility] Daily Treatment Note NAME: Jonatan Olivarez : 1960 Date of Service: 08/10/2024 Discharge Recommendations: Continue to assess pending progress, Subacute/Penitentiary Facility, Home with Home health PT Patient Diagnosis(es): The primary encounter diagnosis was Claudication in peripheral vascular disease. Diagnoses of PAD (peripheral artery disease), Ulcer of both feet with fat layer exposed (HCC), Oxygen dependent - 2L per baseline, Cellulitis of lower extremity, unspecified laterality, and Fall,subsequent encounter were also pertinent to this visit. Assessment Assessment: Bed mobility: Mod I. Transfers:CGA/SBA. Pt ambulated 5ftx1 from bed <-> chair with FWW and SBA/CGA for safety. Slow cadance, decreased B LE step length with B knee bend and forward flexed posture. No LOB or unsteadiness. Supine and seated exercises B Le x15. Activity Tolerance: Patient tolerated treatment well Plan Physical Therapy Plan General Plan: 2 times a day 7 days a week Specific Instructions for Next Treatment: 1x daily weekends and holidays. Current Treatment Recommendations: Strengthening;Balance training;ROM;Functional mobility training;Transfer training;ADL/Self-care training;IADL training;Endurance training;Pain management;Manual;Neuromuscular re- education;Stair training;Gait training;Home exercise program;Safety education & training;Patient/Caregiver education & training;Modalities;Therapeutic activities Restrictions Restrictions/Precautions Restrictions/Precautions: General Precautions, Contact Precautions, Fall Risk Activity Level: Up with Assist Required Braces or Orthoses?: No Subjective Subjective Subjective: Pt in bed upon arrival, agreeable to therapy at this time Pain: L foot 7/10 Objective Bed Mobility Training Bed Mobility Training: Yes Scooting: Stand by assistance;Supervision Transfer Training Transfer Training: Yes Overall Level of Assistance: Contact guard assistance;Stand by assistance Interventions: Safety awareness training Sit to Stand: Contact guard assistance;Stand by assistance Stand to Sit: Stand by assistance;Contact guard assistance Bed to Chair: Stand by assistance;Contact guard assistance Gait Gait Training: Yes Overall Level of Assistance: Contact guard assistance;Stand by assistance Distance (ft): 5 Feet Assistive Device: Walker, rolling Interventions: Safety awareness training Speed/Valeria: Slow;Shuffled Step Length: Left shortened;Right shortened Stance: Left decreased Gait Abnormalities: Antalgic PT Exercises Exercise Treatment: Supine and Seated B LE therex x15 in all planes of motion Safety Devices Type of Devices: All fall risk precautions in place;Call light within reach;Chair alarm in place;Left in chair Goals Short Term Goals Time Frame for Short Term Goals: 10 days Short Term Goal 1: Patient will ambulate 50' with FWW, supervision, without LOB Short Term Goal 2: Patient will perform bed mobility tasks and transfers with SBA Short Term Goal 3: Patient will tolerate 20-30 minutes of therex/act to improve endurance for ADLs. Patient Goals Patient Goals : Decrease pain Education Patient Education Education Given To: Patient Education Provided: Role of Therapy;Plan of Care;Home Exercise Program Education Method: Verbal Barriers to Learning: None Education Outcome: Verbalized understanding Therapy Time Individual Concurrent Group Co-treatment Time In 0945 Time Out 1011 Minutes 26 Erika Vivar PTA Cosigned by Susanne Birch, PT at 08/10/2024 10:59 AM EDT * Darling Welsh RCP - 08/10/2024 10:32 AM EDT RESPIRATORY ASSESSMENT PROTOCOL Patient Name: Jonatan Olivarez Room#: 0326/0326-01 : 1960 Admitting diagnosis: Cellulitis [L03.90] Cellulitis of lower extremity, unspecified laterality [L03.119] Medical History: Past Medical History: Diagnosis Date Asthma Back problem Bulging discs (2 or 3), 1 cracked & 1 blackened discs CAD (coronary artery disease) stents x 3; BMS to LAD 12/2010;SPARKLE to RCA 01/2011, NL LV COPD (chronic obstructive pulmonary disease) (HCC) Depression Diabetes mellitus (HCC) Edema chevy legs feet H/O cardiac catheterization 01/01/2011 H/O echocardiogram 09/03/2019 EF 65% evidence of mild grade I diastolic dysfunction seen Hernia of abdominal wall 2012 History of cardiac cath 03/17/2020 [facility] Michael/Dr. Stephens/Left Radial History of cardiac cath 03/17/2020 severe single vessel disease involving the RCA. Mod 2 vessel disease in the Circumflex and D1 branch fo the LAD Nomrla LVEDP Consults IR cardiology for likely angioplasty and or stent of pts severe stenosis History of cardiovascular stress test 10/15/2012 Abnormal myocardial perfusion study, small to mod perfusion defect of mild intensity in the anterolateral and lateral regions during stress imaging, LV function NL, no wall motion abnormalities, No significant EKG evidence of ischemia during monitoring w/o significant arrhythmias. History of echocardiogram 02/24/2018 EF 60%. Mildly increased LV wall thickness. Evidence of mild diastolic dysfunction seen. History of stress test 04/23/2017 Largerly normal myocardial perfusion imaging with soft tissue artifact, but without signficant evidence of myocardial ischemia or infarction. EF 73%. Hx of blood clots abdomen Hypertension Hypothyroidism Leg pain, bilateral rate 10 Wears partial dentures upper PATIENT ASSESSMENT LABORATORY DATA Hematology: Lab Results Component Value Date/Time WBC 6.6 08/10/2024 05:43 AM RBC 3.62 08/10/2024 05:43 AM RBC 4.28 05/21/2011 08:26 AM HGB 9.3 08/10/2024 05:43 AM HCT 31.9 08/10/2024 05:43 AM PLT 258 08/10/2024 05:43 AM PLT 205 05/21/2011 08:26 AM Chemistry: Lab Results Component Value Date/Time PHART 7.355 12/13/2022 05:39 AM UGM1HKG 46.8 12/13/2022 05:39 AM PO2ART 57.3 12/13/2022 05:39 AM [id number] 88.5 12/13/2022 05:39 AM [id number] 25.5 12/13/2022 05:39 AM PBEA NOT REPORTED 05/03/2021 07:45 AM NBEA 0.4 12/13/2022 05:39 AM VITALS Pulse: 74 Respirations: 18 BP: (!) 164/59 SpO2: 99 % O2 Device: Nasal cannula Temp: 97.8 F (36.6 C) SKIN COLOR [x] Normal [] Pale [] Dusky [] Cyanotic RESPIRATORY PATTERN [x] Normal [] Dyspnea [] Devin-Gallardo [] Kussmaul [] Biots AMBULATORY [] Yes [] No [x] With Assistance Patient Acuity 0 1 2 3 4 Score Level of Consciousness (LOC) [x] Alert & Oriented or Pt normal LOC [] Confused;follows directions [] Confused & uncooper-ative [] Obtunded [] Comatose 0 Respiratory Rate (RR) [x] Reg. rate & pattern. 12 - 20 bpm [] Increased RR. Greater than 20 bpm [] SOB w/ exertion or RR greater than 24 bpm [] Access- ory muscle use at rest. Abn. resp. [] SOB at rest. 0 Bilateral Breath Sounds (BBS) [] Clear [] Diminish-ed bases [x] Diminish-ed t/o, or rales [] Sporadic, scattered wheezes or rhonchi [] Persistentwheezes and, or absent BBS 2 Cough [x] Strong, effective, & non-prod. [] Effective & prod. Less than 25 ml (2 TBSP) over past 24 hrs [] Ineffective & non-prod to less than 25 ML over past 24 hrs [] Ineffective and, or greater than 25 ml sputum prod. past 24 hrs. [] Nonspon- taneous; Requires suctioning 0 Pulmonary History (PULM HX) [] No smoking and no chronic pulmonary history [] Former smoker. Quit over 12 mos. ago [] Current smoker or quit w/ in 12 mos [x] Pulm. History and, or 20 pk/yr smoking hx [] Admitted w/ acute pulm. dx and, or has been admitted w/ pulm. dx 2 or more times over past 12 mos 3 Surgical History this Admit (SURG HX) [x] No surgery [] General surgery [] Lower abdominal [] Thoracic or upper abdominal [] Thoracic w/ pulm. disease 0 Chest X-Ray (CXR)/CT Scan [] Clear or not applicable [] Not available [x] Atelectasis or pleural effusions [] Localized infiltrate or pulm. edema [] Con-solidated Infiltrates, bilateral, or in more than 1 lobe 2 TOTAL ACUITY: 7 CARE PLAN If Acuity Level is 2, 3, or 4 in any of the following: [x] BILATERAL BREATH SOUNDS (BBS) [x] PULMONARY HISTORY (PULM HX) [] Respiratory Rate (RR) Goal: Improve respiratory functions in patients with airway disease and decrease WOB [x] AEROSOL PROTOCOL Total Acuity: 14-28 [] Secondary Assessment in 24 hrs Total Acuity: 9-13 [] Secondary Assessment in 24 hrs Total Acuity: 4-8 [x] Secondary Assessment in 24 hrs Total Acuity: 0-3 [] Secondary Assessment in 48 hrs HHN AEROSOL THERAPY with [physician-ordered bronchodilator(s)] q 4 & Albuterol PRN q2 hrs. Breath-Actuated Neb if BBS Acuity = 4, and pt. can use MP. Notify physician if condition deteriorates. HHN AEROSOL THERAPY with [physician-ordered bronchodilator(s)] QID and Albuterol PRN q4 hrs. Breath-Actuated Neb if BBS Acuity = 4, and pt. can use MP. Notify physician if condition deteriorates. MDI THERAPY with 2 actuations of [physician-ordered bronchodilator(s)] via spacer TID Albuterol and PRN q4 hrs. If unable to utilize MDI: HHN [physician-ordered bronchodilator(s)] TID and Albuterol PRN q4 hrs. Notify physician if condition deteriorates. MDI THERAPY with [physician-ordered bronchodilator(s)] via spacer TID PRN. If unable to utilize MDI: HHN [physician-ordered bronchodilator(s)] TID PRN. Notify physician if condition deteriorates. If Acuity Level is 2, 3, or 4 in any of the following: [] COUGH [] SURGICAL HISTORY (SURG HX) [x] CHEST XRAY (CXR) Goal: Improvement in sputum mobilization in patients with ineffective airway clearance. Reverse atelectasis. [x] Bronchopulmonary Hygiene Protocol Total Acuity: 14-28 [] Secondary Assessment in 24 hrs Total Acuity: 9-13 [] Secondary Assessment in 24 hrs Total Acuity: 4-8 [x] Secondary Assessment in 24 hrs Total Acuity: 0-3 [] Secondary Assessment in 48 hrs METANEB QID with [physician-ordered bronchodilator(s)] if CXR Acuity = 4; otherwise: PD&P, Oscillatory Therapy, or Vest QID & PRN AND PEP QID & PRN NT Sxn PRN for ineffective cough METANEB QID with [physician-ordered bronchodilator(s)] if CXR Acuity = 4; otherwise: PD&P, Oscillatory Therapy or Vest QID & PRN AND PEP QID & PRN NT Sxn PRN for ineffective cough PD&P, Oscillatory Therapy, or Vest TID & PRN AND PEP TID & PRN Instruct patient to self-perform IS q1hr WA If Acuity Level is 2 or above in the following: [] PULMONARY HISTORY (PULM HX) Goal: Assist patient in quitting smoking to slow or stop the progression of lung disease. [] Smoking Cessation Protocol SMOKING CESSATION EDUCATION provided according to policy RT_201: (gordo with an X) ____Yes ____ No ____ NA Smoking Cessation Booklet given: ____Yes ____No ____Patient Refused * Corie Robertson, DARI - 08/10/2024 7:55 AM EDT Ladle Operator to bedside to complete morning assessment. Upon entry to room, pt in bed awake , respirations even and unlabored while on 2L/min oxygen via nasal cannula. Vitals obtained and assessment completed, see flow sheet for details. Pt is A&Ox4. Pt complaining of pain, prn pain medications to begiven shortly. Lung sounds have fine crackles heard throughout. Left foot dressing in place with nodrainage noted. Pt updated on plan of care and whiteboard updated. Pt denies needs from chief writer at this time. Call light in reach. Care ongoing. * Oliva Dunlap APRN - FABIENNE - 08/10/2024 6:46 AM EDT Images from the original note were not included. Progress Note SUBJECTIVE: Patient seen for f/u of Cellulitis of lower extremity, unspecified laterality. She sitting up in bed no distress. No complaints at this time. Slept well . Stated my sores feel better . ROS: Constitutional: negative for fevers, and negative for chills. Respiratory: negative for shortness of breath, negative for cough, and negative for wheezing Cardiovascular: negative for chest pain, and negative for palpitations Gastrointestinal: negative for abdominal pain, negative for nausea,negative for vomiting, negative for diarrhea, and negative for constipation All other systems were reviewed with the patient and are negative unless otherwise stated in HPI OBJECTIVE: Vitals: Vitals: 08/10/24 0120 BP: (!) 169/91 Pulse: 73 Resp: 20 Temp: 98 F (36.7 C) SpO2: 98% Weight - Scale: 59.2 kg (130 lb 8 oz) Height: 154.9 cm (5' 0.98 ) Weight Wt Readings from Last 3 Encounters: 08/10/24 59.2 kg (130 lb 8 oz) 08/06/24 63.5 kg (140 lb) 06/24/24 56.2 kg (124 lb) Body mass index is 24.67 kg/m . 24HR INTAKE/OUTPUT: Intake/Output Summary (Last 24 hours) at 08/10/2024 0646 Last data filed at 08/09/2024 1300 Gross per 24 hour Intake 720 ml Output -- Net 720 ml Exam: GEN: Awake, alert and oriented x3. EYES: EOMI, pupils equal NECK: Supple. No lymphadenopathy. No carotid bruit CVS: regular rate and rhythm, no audible murmur PULM: CTA, no wheezes, rales or rhonchi, no acute respiratory distress ABD: Bowels sounds normal. Abdomen is soft. No distention. no tenderness to palpation. EXT: trace edema bilaterally . No calf tenderness. Dressing CDI NEURO: Moves all extremities. Motor and sensory are grossly intact SKIN: No rashes. No skin lesions. See below [id number] Foot/Toes 08/06/2024-Admission--Right Foot/Toes Diagnostic Data: Complete Blood Count: Recent Labs 08/08/24 0551 08/09/24 0620 08/10/24 0543 WBC 8.4 6.9 6.6 RBC 3.62* 3.39* 3.62* HGB 9.5* 9.0* 9.3* HCT 31.2* 29.7* 31.9* MCV 86.2 87.6 88.1 MCH 26.2 26.5 25.7 MCHC 30.4 30.3 29.2 RDW 19.9* 20.0* 20.0* PLT 277 252 258 MPV 8.8 9.2 9.2 Last 3 Blood Glucose: Recent Labs 08/08/24 0551 08/09/24 0608/10/24 0543 GLUCOSE 131* 103* 96 Comprehensive Metabolic Profile: Recent Labs 08/08/24 0551 08/09/24 0620 08/10/24 0543 NA 142 142 143 K 3.6* 3.6* 3.6* CL 109* 110* 109* CO2 26 BUN 11 8 9 CREATININE 0.8 0.6 0.6 GLUCOSE 131* 103* 96 CALCIUM 7.8* 8.0* 8.2* BILITOT -- <0.2 -- ALKPHOS -- 74 -- AST -- 16 -- ALT -- 9* -- Urinalysis: Lab Results Component Value Date/Time NITRU NEGATIVE 01/02/2024 05:05 PM COLORU Yellow 01/02/2024 05:05 PM PHUR 6.0 01/02/2024 05:05 PM PHUR 6.5 05/12/2021 09:39 PM WBCUA 5 TO 10 01/02/2024 05:05 PM RBCUA 0 TO 2 01/02/2024 05:05 PM MUCUS NOT REPORTED 05/12/2021 09:39 PM TRICHOMONAS NOT REPORTED 05/12/2021 09:39 PM YEAST 2+ 05/12/2021 09:39 PM BACTERIA 2+ 01/02/2024 05:05 PM LEUKOCYTESUR SMALL 01/02/2024 05:05 PM UROBILINOGEN Normal 01/02/2024 05:05 PM BILIRUBINUR NEGATIVE 01/02/2024 05:05 PM GLUCOSEU NEGATIVE 01/02/2024 05:05 PM KETUA NEGATIVE 01/02/2024 05:05 PM AMORPHOUS NOT REPORTED 05/12/2021 09:39 PM HgBA1c: Lab Results Component Value Date/Time LABA1C 7.2 08/06/2024 04:50 PM Lactic Acid: Lab Results Component Value Date/Time LACTA 0.7 04/23/2021 01:40 PM LACTA 0.5 02/21/2021 06:55 PM LACTA 1.0 01/17/2021 01:30 AM Troponin: No results for input(s): TROPONINI in the last 72 hours. CRP: No results for input(s): CRP in the last 72 hours. Radiology/Imaging: Vascular duplex lower extremity arteries bilateral Final Result CT FOOT RIGHT W CONTRAST Final Result CT right tibia/fibula and foot: 1. No acute fracture or CT evidence of osteomyelitis. 2. Extensive subcutaneous edema throughout the lower extremity which may represent cellulitis. No drainable fluid collection or soft tissue gas identified. 3. Additional findings, as above. CT left tibia/fibula and foot: 1. Extensive lower extremity subcutaneous edema which may reflect cellulitis. Focal area of non enhancement within the plantar heel soft tissues possibly representing tissue necrosis. No drainable fluid collection identified in this region. MR follow-up may be useful as clinically warranted. 2. Focally increased superficial soft tissue edema within the lateral dorsal forefoot possibly representing phlegmon or small hematoma. No drainable fluid collection identified in this region at this time. 3. Small skin ulceration overlying the lateral malleolus with subjacent focus of subcutaneous air. No gross evidence of necrotizing fasciitis. 4. No acute fracture or CT evidence of osteomyelitis. CT TIBIA FIBULA RIGHT W CONTRAST Final Result CT right tibia/fibula and foot: 1. No acute fracture or CT evidence of osteomyelitis. 2. Extensive subcutaneous edema throughout the lower extremity which may represent cellulitis. No drainable fluid collection or soft tissue gas identified. 3. Additional findings, as above. CT left tibia/fibula and foot: 1. Extensive lower extremity subcutaneous edema which may reflect cellulitis. Focal area of non enhancement within the plantar heel soft tissues possibly representing tissue necrosis. No drainable fluid collection identified in this region. MR follow-up may be useful as clinically warranted. 2. Focally increased superficial soft tissue edema within the lateral dorsal forefoot possibly representing phlegmon or small hematoma. No drainable fluid collection identified in this region at this time. 3. Small skin ulceration overlying the lateral malleolus with subjacent focus of subcutaneous air. No gross evidence of necrotizing fasciitis. 4. No acute fracture or CT evidence of osteomyelitis. CT FOOT LEFT W CONTRAST Final Result CT right tibia/fibula and foot: 1. No acute fracture or CT evidence of osteomyelitis. 2. Extensive subcutaneous edema throughout the lower extremity which may represent cellulitis. No drainable fluid collection or soft tissue gas identified. 3. Additional findings, as above. CT left tibia/fibula and foot: 1. Extensive lower extremity subcutaneous edema which may reflect cellulitis. Focal area of non enhancement within the plantar heel soft tissues possibly representing tissue necrosis. No drainable fluid collection identified in this region. MR follow-up may be useful as clinically warranted. 2. Focally increased superficial soft tissue edema within the lateral dorsal forefoot possibly representing phlegmon or small hematoma. No drainable fluid collection identified in this region at this time. 3. Small skin ulceration overlying the lateral malleolus with subjacent focus of subcutaneous air. No gross evidence of necrotizing fasciitis. 4. No acute fracture or CT evidence of osteomyelitis. CT TIBIA FIBULA LEFT W CONTRAST Final Result CT right tibia/fibula and foot: 1. No acute fracture or CT evidence of osteomyelitis. 2. Extensive subcutaneous edema throughout the lower extremity which may represent cellulitis. No drainable fluid collection or soft tissue gas identified. 3. Additional findings, as above. CT left tibia/fibula and foot: 1. Extensive lower extremity subcutaneous edema which may reflect cellulitis. Focal area of non enhancement within the plantar heel soft tissues possibly representing tissue necrosis. No drainable fluid collection identified in this region. MR follow-up may be useful as clinically warranted. 2. Focally increased superficial soft tissue edema within the lateral dorsal forefoot possibly representing phlegmon or small hematoma. No drainable fluid collection identified in this region at this time. 3. Small skin ulceration overlying the lateral malleolus with subjacent focus of subcutaneous air. No gross evidence of necrotizing fasciitis. 4. No acute fracture or CT evidence of osteomyelitis. CT CHEST ABDOMEN PELVIS W CONTRAST Additional Contrast? None Final Result 1. Fem-fem bypass graft appears discontiguous and occluded. Bilateral superficial femoral artery occlusion or near occlusion is noted. Age is indeterminate. 2. Cardiomegaly and calcific coronary artery disease. 3. Prominent main pulmonary artery measures over 4 cm suggestive of possible pulmonary hypertension. 4. Ventral hernia is wide mouth and contains loops of small and large bowel without evidence of obstruction. 5. Moderately severe right renal atrophy. 6. Increased stool in the colon. 7. A few air-fluid levels are noted in the small bowel. 8. 7 mm calcification right lobe of the thyroid. Recommend follow-up nonemergent thyroid ultrasound. 9. 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 10. Aortic graft appears opacified. 11. Compression fracture L2, age indeterminate. 12. Large posterior disc marginal osteophyte causing moderately severe spinal stenosis centrally. 13. Grade 1 spondylolisthesis L2-3 and bilateral pars defects at L2 and L3. 14. Multilevel vacuum disc phenomena. CT HEAD WO CONTRAST Final Result No acute intracranial abnormality or calvarial fracture. ASSESSMENT / PLAN: MEDICAL DECISION MAKING: Primary Problem(s): Cellulitis of lower extremity, unspecified laterality Differential diagnoses: cellulitis, abscess, osteomyelitis Condition is a chronic illness with exacerbation, progression or side effects of treatment Condition is stable Treatment plan: Appreciate Dr. Newman See wound care orders Arterial studies-reviewed We will follow-up with Dr. Wright on discharge Augmentin for 14 days Betadine to legs PT/OT Up with assistance SS for DC planning Wound CX-mixed Monitor labs and replace electrolytes BC x 2-no growth Procalcitonin Imaging: CT bilateral Tib/Fib-no osteo CT Bilateral Feet-no osteo Medications: IV Zosyn Stop IV Vanc Medication Monitoring / High Risk Medications: none Failure to Thrive/Weight Loss/ Frequent Falls Condition is stable Treatment plan: PT/OT Appreciate [employer] Application Developer Imaging: CT Head-negative CT Chest/Abd/Pelvis-see above Medications: LOC DM Condition is stable Treatment plan: A1C-7.2 current 6.8 in 2023 Appreciate [employer] Developer Imaging: no further imaging studies ordered today Medications: Continue metformin Nutrition status: severe malnutrition [employer] Application Developer consult initiated I/O Daily weight Monitor Daily intake Nutritional Supplements as tolerated MALNUTRITION ASSESSMENT AND PLAN The following was documented by the Dietitian: Malnutrition Assessment Context of Malnutrition: Acute Illness (08/07/241130) Acute Illness - Energy Intake : 50% or less of estimated energy requirements for 5 or more days (08/07/241130) Acute Illness - Weight Loss : Greater than 7.5% over 3 months (06/13 137# per medical note) (08/07/241130) Acute Illness - Body Fat Loss: Mild body fat loss (08/07/241130) Acute Illness - Body Fat Loss Locations: Orbital;Triceps (08/07/241130) Acute Illness - Muscle Mass Loss: Mild muscle mass loss (08/07/241130) Acute Illness - Muscle Mass Loss Location: Temples (temporalis);Hand (interosseous) (08/07/241130) Acute Illness - Fluid Accumulation : No fluid accumulation (08/07/241130) Acute Illness - [employer] Marker Designer Strength: Not Performed (08/07/241130) Acute Illness - Malnutrition Score: 16 (08/07/241130) Malnutrition Status: Severe malnutrition (08/07/241130) I agree with the dietitian's malnutrition assessment. Medical Nutrition Therapy: continue current nutrition therapy and oral supplements Hospital Prophylaxis: DVT: Eliquis Stress Ulcer: PPI Disposition: Shared decision making: All test results, treatment options and disposition options were discussed with the patient today Social determinants of health that may impact management: none Code status: Full Code Disposition: Discharge plan is home [facility] Advanced Care Planning documentation: [x] I have confirmed that the patient's Advance Care Plan is present, Code Status is documented, orsurrogate decision maker is listed in the patient's medical record [If yes , STOP HERE] [] The patient's Advance Care Plan is NOT present because: [] I confirmed today that the patient does not wish or was not able to name a surrogate decision maker or provide and advance care plan. [] Hospice care is currently being provided or has been provided within the calendar year. [] I did NOT confirm today the presence of an Advance Care Plan or surrogate decision maker documented within the patient's medical record. [DOES NOT SATISFY MIPS PERFORMANCE] HILDA Cortes CNP , HILDA, RABBET OPERATOR-C Hospitalist Medicine 08/10/2024, 6:46 AM Cosigned by Osmar Rodriguez MD at 08/10/2024 6:51 PM EDT Associated attestation - Osmar Rodriguez MD - 08/10/2024 6:51 PM EDT Images from the original note were not included. [address] , [place], [place], [address] Attestation Patient: Jonatan Olivarez Date of Admission: 08/06/2024 1:44 PM Hospital Day # 4 Date of Evaluation: 08/10/2024 I personally evaluated and examined the patient [id number] in conjunction with the PA/RABBET OPERATOR and agree with the management and dispostition of the patient. Please see the PA/RABBET OPERATOR's note for full details.My sims findings are: SUBJECTIVE: Patient seen for follow up of Cellulitis of lower extremity, unspecified laterality. Patient seen and examined at the bed side , no new acute events overnight and, no new complains noted. VSS, afebrile. Notes from nursing staff and Consults had been reviewed, and the overnight progress had been checked with the nursing staff as well. OBJECTIVE: Vitals: Temp: 97.5 F (36.4 C) BP: (!) 184/72 Respirations: 18 Pulse: 78 SpO2: 95 % Weight Wt Readings from Last 3 Encounters: 08/10/24 59.2 kg (130 lb 8 oz) 08/06/24 63.5 kg (140 lb) 06/24/24 56.2 kg (124 lb) Body mass index is 24.67 kg/m . 24HR INTAKE/OUTPUT: Intake/Output Summary (Last 24 hours) at 08/10/2024 1851 Last data filed at 08/10/2024 1303 Gross per 24 hour Intake 905.36 ml Output 100 ml Net 805.36 ml Exam: GEN: Awake, alert and oriented x3. EYES: EOMI, pupils equal NECK: Supple. No lymphadenopathy. No carotid bruit CVS: regular rate and rhythm, no audible murmur PULM: CTA, no wheezes, rales or rhonchi, no acute respiratory distress ABD: Bowels sounds normal. Abdomen is soft. No distention. no tenderness to palpation. EXT: 1+ edema bilaterally . No calf tenderness. NEURO: Moves all extremities. Motor and sensory are grossly intact SKIN: No rashes. LE wounds noted bilaterally - erythematous, wrapped in FAUSTO DATA: Complete Blood Count: Recent Labs 08/08/24 0551 08/09/24 0620 08/10/24 0543 WBC 8.4 6.9 6.6 RBC 3.62* 3.39* 3.62* HGB 9.5* 9.0* 9.3* HCT 31.2* 29.7* 31.9* MCV 86.2 87.6 88.1 RDW 19.9* 20.0* 20.0* PLT 277 252 258 Recent Labs 08/08/24 0551 08/09/24 0620 08/10/24 0543 NEUTROABS 6.48 5.10 4.40 LYMPHOPCT 9* 11* 16* LYMPHSABS 0.74* 0.77* 1.02* MONOPCT 9 9 9 BASOPCT 1 0 1 IMMGRAN 1* 0 0 CMP: Lab Results Component Value Date GLUCOSE 96 08/10/2024 BUN 9 08/10/2024 CREATININE 0.6 08/10/2024 NA 143 08/10/2024 K 3.6 (L) 08/10/2024 CALCIUM 8.2 (L) 08/10/2024 CL 109 (H) 08/10/2024 CO2 26 08/10/2024 BILITOT <0.2 08/09/2024 ALKPHOS 74 08/09/2024 ALT 9 (L) 08/09/2024 AST 16 08/09/2024 UA: Lab Results Component Value Date COLORU Yellow 01/02/2024 WBCUA 5 TO 10 01/02/2024 RBCUA 0 TO 2 01/02/2024 LEUKOCYTESUR SMALL (A) 01/02/2024 GLUCOSEU NEGATIVE 01/02/2024 KETUA NEGATIVE 01/02/2024 PROTEINU 2+ (A) 01/02/2024 HGBUR NEGATIVE 01/02/2024 CASTUA NOT REPORTED 05/12/2021 BACTERIA 2+ (A) 01/02/2024 YEAST 2+ (A) 05/12/2021 Lactic Acid: Lab Results Component Value Date/Time LACTA 0.7 04/23/2021 01:40 PM LACTA 0.5 02/21/2021 06:55 PM LACTA 1.0 01/17/2021 01:30 AM High Sensitivity Troponin: No results for input(s): TROPHS in the last 72 hours. Radiology/Imaging: Vascular duplex lower extremity arteries bilateral Final Result CT FOOT RIGHT W CONTRAST Final Result CT right tibia/fibula and foot: 1. No acute fracture or CT evidence of osteomyelitis. 2. Extensive subcutaneous edema throughout the lower extremity which may represent cellulitis. No drainable fluid collection or soft tissue gas identified. 3. Additional findings, as above. CT left tibia/fibula and foot: 1. Extensive lower extremity subcutaneous edema which may reflect cellulitis. Focal area of non enhancement within the plantar heel soft tissues possibly representing tissue necrosis. No drainable fluid collection identified in this region. MR follow-up may be useful as clinically warranted. 2. Focally increased superficial soft tissue edema within the lateral dorsal forefoot possibly representing phlegmon or small hematoma. No drainable fluid collection identified in this region at this time. 3. Small skin ulceration overlying the lateral malleolus with subjacent focus of subcutaneous air. No gross evidence of necrotizing fasciitis. 4. No acute fracture or CT evidence of osteomyelitis. CT TIBIA FIBULA RIGHT W CONTRAST Final Result CT right tibia/fibula and foot: 1. No acute fracture or CT evidence of osteomyelitis. 2. Extensive subcutaneous edema throughout the lower extremity which may represent cellulitis. No drainable fluid collection or soft tissue gas identified. 3. Additional findings, as above. CT left tibia/fibula and foot: 1. Extensive lower extremity subcutaneous edema which may reflect cellulitis. Focal area of non enhancement within the plantar heel soft tissues possibly representing tissue necrosis. No drainable fluid collection identified in this region. MR follow-up may be useful as clinically warranted. 2. Focally increased superficial soft tissue edema within the lateral dorsal forefoot possibly representing phlegmon or small hematoma. No drainable fluid collection identified in this region at this time. 3. Small skin ulceration overlying the lateral malleolus with subjacent focus of subcutaneous air. No gross evidence of necrotizing fasciitis. 4. No acute fracture or CT evidence of osteomyelitis. CT FOOT LEFT W CONTRAST Final Result CT right tibia/fibula and foot: 1. No acute fracture or CT evidence of osteomyelitis. 2. Extensive subcutaneous edema throughout the lower extremity which may represent cellulitis. No drainable fluid collection or soft tissue gas identified. 3. Additional findings, as above. CT left tibia/fibula and foot: 1. Extensive lower extremity subcutaneous edema which may reflect cellulitis. Focal area of non enhancement within the plantar heel soft tissues possibly representing tissue necrosis. No drainable fluid collection identified in this region. MR follow-up may be useful as clinically warranted. 2. Focally increased superficial soft tissue edema within the lateral dorsal forefoot possibly representing phlegmon or small hematoma. No drainable fluid collection identified in this region at this time. 3. Small skin ulceration overlying the lateral malleolus with subjacent focus of subcutaneous air. No gross evidence of necrotizing fasciitis. 4. No acute fracture or CT evidence of osteomyelitis. CT TIBIA FIBULA LEFT W CONTRAST Final Result CT right tibia/fibula and foot: 1. No acute fracture or CT evidence of osteomyelitis. 2. Extensive subcutaneous edema throughout the lower extremity which may represent cellulitis. No drainable fluid collection or soft tissue gas identified. 3. Additional findings, as above. CT left tibia/fibula and foot: 1. Extensive lower extremity subcutaneous edema which may reflect cellulitis. Focal area of non enhancement within the plantar heel soft tissues possibly representing tissue necrosis. No drainable fluid collection identified in this region. MR follow-up may be useful as clinically warranted. 2. Focally increased superficial soft tissue edema within the lateral dorsal forefoot possibly representing phlegmon or small hematoma. No drainable fluid collection identified in this region at this time. 3. Small skin ulceration overlying the lateral malleolus with subjacent focus of subcutaneous air. No gross evidence of necrotizing fasciitis. 4. No acute fracture or CT evidence of osteomyelitis. CT CHEST ABDOMEN PELVIS W CONTRAST Additional Contrast? None Final Result 1. Fem-fem bypass graft appears discontiguous and occluded. Bilateral superficial femoral artery occlusion or near occlusion is noted. Age is indeterminate. 2. Cardiomegaly and calcific coronary artery disease. 3. Prominent main pulmonary artery measures over 4 cm suggestive of possible pulmonary hypertension. 4. Ventral hernia is wide mouth and contains loops of small and large bowel without evidence of obstruction. 5. Moderately severe right renal atrophy. 6. Increased stool in the colon. 7. A few air-fluid levels are noted in the small bowel. 8. 7 mm calcification right lobe of the thyroid. Recommend follow-up nonemergent thyroid ultrasound. 9. 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 10. Aortic graft appears opacified. 11. Compression fracture L2, age indeterminate. 12. Large posterior disc marginal osteophyte causing moderately severe spinal stenosis centrally. 13. Grade 1 spondylolisthesis L2-3 and bilateral pars defects at L2 and L3. 14. Multilevel vacuum disc phenomena. CT HEAD WO CONTRAST Final Result No acute intracranial abnormality or calvarial fracture. ASSESSMENT: Principal Problem: Cellulitis of lower extremity, unspecified laterality Active Problems: Diabetic polyneuropathy associated with type 2 diabetes mellitus (HCC) Primary hypertension Severe malnutrition Tobacco abuse disorder CAD (coronary artery disease) COPD (chronic obstructive pulmonary disease) (HCC) Chronic right hip pain Weight loss Oxygen dependent - 2L per baseline Resolved Problems: * No resolved hospital problems. * PLAN: I agree with the plan as outlined in the RABBET OPERATOR/PA's note Disposition: Discharge plan is pending Please note that this chart was generated using voice recognition [employer]on dictation software. Although every effort was made to ensure the accuracy of this automated skidder lever operator, some errors in skidder lever operator may have occurred. Osmar Rodriguez MD 08/10/2024 6:51 PM * Louise Mccoy RN - 08/09/2024 1:40 PM EDT Ladle Operator to bedside for afternoon assessment. See flowsheets for details. Patient is sitting up in the bed. Breathing is regular and unlabored. SPO2 is 99% on 2L. Lung sounds are diminished. Wound careprovided to LLE. Wounds cleansed with NS, iodine applied, non adherent, gauze, and fausto wrap applied. Patient tolerated well. Patient denies further needs at this time. Call light is within reach. Care ongoing. * Gordo De Santiago MD - 08/09/2024 8:52 AM EDT Progress Note SUBJECTIVE: FU related to denies any issues with the feet. She denies any shortness of breath. OBJECTIVE: Vitals: TEMPERATURE: Current - Temp: 97.7 F (36.5 C); Max - Temp Av.6 F (36.4 C) Min: 97.1 F (36.2 C) Max: 98 F (36.7 C) RESPIRATIONS RANGE: Resp Av.5 Min: 16 Max: 20 PULSE RANGE: Pulse Av.4 Min: 67 Max: 82 BLOOD PRESSURE RANGE: Systolic (24hrs), Av , Min:91 , Max:144 ; Diastolic (24hrs), Av, Min:41, Max:54 PULSE OXIMETRY RANGE: SpO2 Av.4 % Min: 91 % Max: 97 % 24HR INTAKE/OUTPUT: Intake/Output Summary (Last 24 hours) at 08/09/2024 0852 Last data filed at 08/09/2024 0439 Gross per 24 hour Intake 1340 ml Output -- Net 1340 ml Exam: General: alert HEENT: Supple neck & negative Heart: Regular Lungs: clear to auscultation bilaterally & no retractions Abdomen: Normal & soft, No tenderness and BS normal Extremities: Large bandage noted on the left foot. Definitely has some different areas of skin breakdown with some bruising. Several different blisters. And No edema Neuro: NonFocal Diagnostic Data: Lab Results Component Value Date WBC 6.9 08/09/2024 HGB 9.0 (L) 08/09/2024 PLT 252 08/09/2024 Lab Results Component Value Date BUN 8 08/09/2024 CREATININE 0.6 08/09/2024 NA 142 08/09/2024 K 3.6 (L) 08/09/2024 CALCIUM 8.0 (L) 08/09/2024 CL 110 (H) 08/09/2024 CO2 23 08/09/2024 LABGLOM >90 08/09/2024 Lab Results Component Value Date WBCUA 5 TO 10 01/02/2024 RBCUA 0 TO 2 01/02/2024 LEUKOCYTESUR SMALL (A) 01/02/2024 GLUCOSEU NEGATIVE 01/02/2024 KETUA NEGATIVE 01/02/2024 PROTEINU 2+ (A) 01/02/2024 HGBUR NEGATIVE 01/02/2024 CASTUA NOT REPORTED 05/12/2021 BACTERIA 2+ (A) 01/02/2024 YEAST 2+ (A) 05/12/2021 Lab Results Component Value Date MYOGLOBIN 49 11/15/2012 TROPONINT NOT REPORTED 05/12/2021 CKTOTAL 70 07/17/2019 CKMB 4.3 (H) 11/15/2012 PROBNP 7,206 (H) 01/02/2024 Vascular duplex lower extremity arteries bilateral Result Date: 08/07/2024 The right superficial femoral artery is occluded with distal reconstitution of the midportion of the superficial femoral artery and monophasic flow throughout. The left superficial femoral and popliteal arteries are occluded as is the femoral-popliteal bypass graft. Tibial arterial flow reconstitutes via collaterals. CT FOOT LEFT W CONTRAST Result Date: 08/06/2024 EXAMINATION: CT OF THE RIGHT TIBIA AND FIBULA WITH CONTRAST; CT OF THE LEFT FOOT WITH CONTRAST; CT OF THE LEFT TIBIA AND FIBULA WITH CONTRAST; CT OF THE RIGHT FOOT WITH CONTRAST 08/06/2024 4:06 pm TECHNIQUE: CT of the right tibia and fibula was performed with the administration of intravenous contrast. Multiplanar reformatted images are provided for review. Automated exposure control, iterative reconstruction, and/or weight based adjustment of the mA/kV was utilized to reduce the radiation dose to as low as reasonably achievable.; CT of the left foot was performed with the administration of intravenous contrast. Multiplanar reformatted images are provided for review. Automated exposure control, iterative reconstruction, and/or weight based adjustment of the mA/kV was utilized to reduce the radiation dose to as low as reasonably achievable.; CT of the left tibia and fibula was performed with the administration of intravenous contrast. Multiplanar reformatted images are provided for review. Automated exposure control, iterative reconstruction, and/or weight based adjustment of the mA/kVwas utilized to reduce the radiation dose to as low as reasonably achievable.; CT of the right footwas performed with the administration of intravenous contrast. Multiplanar reformatted images are pr ovided for review. Automated exposure control, iterative reconstruction, and/or weight based adjustment of the mA/kV was utilized to reduce the radiation dose to as low as reasonably achievable. COMPARISON: 01/02/2024 HISTORY ORDERING SYSTEM PROVIDED HISTORY: falls / wounds TECHNOLOGIST PROVIDED HISTORY: falls / wounds Additional Contrast?->1; ORDERING SYSTEM PROVIDED HISTORY: wounds / falls TECHNOLOGIST PROVIDED HISTORY: wounds / falls Additional Contrast?->1 FINDINGS: Right tibia/fibulaand foot: Bones: No evidence of acute fracture or dislocation. No aggressive appearing osseous abnormality or periostitis. Plantar calcaneal spur. Soft Tissue: Severe subcutaneous edema throughout the lower calf, ankle and foot most pronounced dorsally. No drainable fluid collection. Extensive atherosclerotic vascular calcifications. No soft tissue gas. No focal intramuscular abnormality. Joint: [id number] tricompartmental osteoarthritis of the knee joint. No osseous erosions. Left tibia/fibula and foot: Bones: No evidence of acute fracture or dislocation. No aggressive appearing osseous abnormality or periostitis. Soft Tissue: Extensive subcutaneous edema throughout the calf, ankle and foot. Focal area of increased soft tissue swelling within the lateral dorsal forefoot, without drainable fluid collection in this region, possibly related to underlying hematoma or phlegmon (series8/image 430 and series 609/image 155). Focal area of non enhancement within the plantar foot soft tissues may reflect tissue necrosis (series 8/image 417 and series 609/image 117). Small ulceration within the lateral ankle skin with adjacent focus of soft tissue gas (series 8/images 363-367). Visualized portions of a popliteal bypass graft appear occluded. No focal intramuscular abnormality. Joint: Moderate to severe osteoarthritis of the knee joint. No osseous erosions. CT right tibia/fibula and foot: 1. No acute fracture or CT evidence of osteomyelitis. 2. Extensive subcutaneous edema throughout the lower extremity which may represent cellulitis. No drainable fluidcollection or soft tissue gas identified. 3. Additional findings, as above. CT left tibia/fibula and foot: 1. Extensive lower extremity subcutaneous edema which may reflect cellulitis. Focal area of non enhancement within the plantar heel soft tissues possibly representing tissue necrosis. No drainable fluid collection identified in this region. MR follow-up may be useful as clinically warranted.2. Focally increased superficial soft tissue edema within the lateral dorsal forefoot possibly repre senting phlegmon or small hematoma. No drainable fluid collection identified in this region at thistime. 3. Small skin ulceration overlying the lateral malleolus with subjacent focus of subcutaneousair. No gross evidence of necrotizing fasciitis. 4. No acute fracture or CT evidence of osteomyelitis. CT TIBIA FIBULA LEFT W CONTRAST Result Date: 08/06/2024 EXAMINATION: CT OF THE RIGHT TIBIA AND FIBULA WITH CONTRAST; CT OF THE LEFT FOOT WITH CONTRAST; CT OF THE LEFT TIBIA AND FIBULA WITH CONTRAST; CT OF THE RIGHT FOOT WITH CONTRAST 08/06/2024 4:06 pm TECHNIQUE: CT of the right tibia and fibula was performed with the administration of intravenous contrast. Multiplanar reformatted images are provided for review. Automated exposure control, iterative reconstruction, and/or weight based adjustment of the mA/kV was utilized to reduce the radiation dose to as low as reasonably achievable.; CT of the left foot was performed with the administration of intravenous contrast. Multiplanar reformatted images are provided for review. Automated exposure control, iterative reconstruction, and/or weight based adjustment of the mA/kV was utilized to reduce the radiation dose to as low as reasonably achievable.; CT of the left tibia and fibula was performed with the administration of intravenous contrast. Multiplanar reformatted images are provided for review. Automated exposure control, iterative reconstruction, and/or weight based adjustment of the mA/kVwas utilized to reduce the radiation dose to as low as reasonably achievable.; CT of the right footwas performed with the administration of intravenous contrast. Multiplanar reformatted images are pr ovided for review. Automated exposure control, iterative reconstruction, and/or weight based adjustment of the mA/kV was utilized to reduce the radiation dose to as low as reasonably achievable. COMPARISON: 01/02/2024 HISTORY ORDERING SYSTEM PROVIDED HISTORY: falls / wounds TECHNOLOGIST PROVIDED HISTORY: falls / wounds Additional Contrast?->1; ORDERING SYSTEM PROVIDED HISTORY: wounds / falls TECHNOLOGIST PROVIDED HISTORY: wounds / falls Additional Contrast?->1 FINDINGS: Right tibia/fibulaand foot: Bones: No evidence of acute fracture or dislocation. No aggressive appearing osseous abnormality or periostitis. Plantar calcaneal spur. Soft Tissue: Severe subcutaneous edema throughout the lower calf, ankle and foot most pronounced dorsally. No drainable fluid collection. Extensive atherosclerotic vascular calcifications. No soft tissue gas. No focal intramuscular abnormality. Joint: Mugi-jw-[id number] tricompartmental osteoarthritis of the knee joint. No osseous erosions. Left tibia/fibula and foot: Bones: No evidence of acute fracture or dislocation. No aggressive appearing osseous abnormality or periostitis. Soft Tissue: Extensive subcutaneous edema throughout the calf, ankle and foot. Focal area of increased soft tissue swelling within the lateral dorsal forefoot, without drainable fluid collection in this region, possibly related to underlying hematoma or phlegmon (series8/image 430 and series 609/image 155). Focal area of non enhancement within the plantar foot soft tissues may reflect tissue necrosis (series 8/image 417 and series 609/image 117). Small ulceration within the lateral ankle skin with adjacent focus of soft tissue gas (series 8/images 363-367). Visualized portions of a popliteal bypass graft appear occluded. No focal intramuscular abnormality. Joint: Moderate to severe osteoarthritis of the knee joint. No osseous erosions. CT right tibia/fibula and foot: 1. No acute fracture or CT evidence of osteomyelitis. 2. Extensive subcutaneous edema throughout the lower extremity which may represent cellulitis. No drainable fluidcollection or soft tissue gas identified. 3. Additional findings, as above. CT left tibia/fibula and foot: 1. Extensive lower extremity subcutaneous edema which may reflect cellulitis. Focal area of non enhancement within the plantar heel soft tissues possibly representing tissue necrosis. No drainable fluid collection identified in this region. MR follow-up may be useful as clinically warranted.2. Focally increased superficial soft tissue edema within the lateral dorsal forefoot possibly repre senting phlegmon or small hematoma. No drainable fluid collection identified in this region at thistime. 3. Small skin ulceration overlying the lateral malleolus with subjacent focus of subcutaneousair. No gross evidence of necrotizing fasciitis. 4. No acute fracture or CT evidence of osteomyelitis. CT TIBIA FIBULA RIGHT W CONTRAST Result Date: 08/06/2024 EXAMINATION: CT OF THE RIGHT TIBIA AND FIBULA WITH CONTRAST; CT OF THE LEFT FOOT WITH CONTRAST; CT OF THE LEFT TIBIA AND FIBULA WITH CONTRAST; CT OF THE RIGHT FOOT WITH CONTRAST 08/06/2024 4:06 pm TECHNIQUE: CT of the right tibia and fibula was performed with the administration of intravenous contrast. Multiplanar reformatted images are provided for review. Automated exposure control, iterative reconstruction, and/or weight based adjustment of the mA/kV was utilized to reduce the radiation dose to as low as reasonably achievable.; CT of the left foot was performed with the administration of intravenous contrast. Multiplanar reformatted images are provided for review. Automated exposure control, iterative reconstruction, and/or weight based adjustment of the mA/kV was utilized to reduce the radiation dose to as low as reasonably achievable.; CT of the left tibia and fibula was performed with the administration of intravenous contrast. Multiplanar reformatted images are provided for review. Automated exposure control, iterative reconstruction, and/or weight based adjustment of the mA/kVwas utilized to reduce the radiation dose to as low as reasonably achievable.; CT of the right footwas performed with the administration of intravenous contrast. Multiplanar reformatted images are pr ovided for review. Automated exposure control, iterative reconstruction, and/or weight based adjustment of the mA/kV was utilized to reduce the radiation dose to as low as reasonably achievable. COMPARISON: 01/02/2024 HISTORY ORDERING SYSTEM PROVIDED HISTORY: falls / wounds TECHNOLOGIST PROVIDED HISTORY: falls / wounds Additional Contrast?->1; ORDERING SYSTEM PROVIDED HISTORY: wounds / falls TECHNOLOGIST PROVIDED HISTORY: wounds / falls Additional Contrast?->1 FINDINGS: Right tibia/fibulaand foot: Bones: No evidence of acute fracture or dislocation. No aggressive appearing osseous abnormality or periostitis. Plantar calcaneal spur. Soft Tissue: Severe subcutaneous edema throughout the lower calf, ankle and foot most pronounced dorsally. No drainable fluid collection. Extensive atherosclerotic vascular calcifications. No soft tissue gas. No focal intramuscular abnormality. Joint: Biic-su-[id number] tricompartmental osteoarthritis of the knee joint. No osseous erosions. Left tibia/fibula and foot: Bones: No evidence of acute fracture or dislocation. No aggressive appearing osseous abnormality or periostitis. Soft Tissue: Extensive subcutaneous edema throughout the calf, ankle and foot. Focal area of increased soft tissue swelling within the lateral dorsal forefoot, without drainable fluid collection in this region, possibly related to underlying hematoma or phlegmon (series8/image 430 and series 609/image 155). Focal area of non enhancement within the plantar foot soft tissues may reflect tissue necrosis (series 8/image 417 and series 609/image 117). Small ulceration within the lateral ankle skin with adjacent focus of soft tissue gas (series 8/images 363-367). Visualized portions of a popliteal bypass graft appear occluded. No focal intramuscular abnormality. Joint: Moderate to severe osteoarthritis of the knee joint. No osseous erosions. CT right tibia/fibula and foot: 1. No acute fracture or CT evidence of osteomyelitis. 2. Extensive subcutaneous edema throughout the lower extremity which may represent cellulitis. No drainable fluidcollection or soft tissue gas identified. 3. Additional findings, as above. CT left tibia/fibula and foot: 1. Extensive lower extremity subcutaneous edema which may reflect cellulitis. Focal area of non enhancement within the plantar heel soft tissues possibly representing tissue necrosis. No drainable fluid collection identified in this region. MR follow-up may be useful as clinically warranted.2. Focally increased superficial soft tissue edema within the lateral dorsal forefoot possibly repre senting phlegmon or small hematoma. No drainable fluid collection identified in this region at thistime. 3. Small skin ulceration overlying the lateral malleolus with subjacent focus of subcutaneousair. No gross evidence of necrotizing fasciitis. 4. No acute fracture or CT evidence of osteomyelitis. CT FOOT RIGHT W CONTRAST Result Date: 08/06/2024 EXAMINATION: CT OF THE RIGHT TIBIA AND FIBULA WITH CONTRAST; CT OF THE LEFT FOOT WITH CONTRAST; CT OF THE LEFT TIBIA AND FIBULA WITH CONTRAST; CT OF THE RIGHT FOOT WITH CONTRAST 08/06/2024 4:06 pm TECHNIQUE: CT of the right tibia and fibula was performed with the administration of intravenous contrast. Multiplanar reformatted images are provided for review. Automated exposure control, iterative reconstruction, and/or weight based adjustment of the mA/kV was utilized to reduce the radiation dose to as low as reasonably achievable.; CT of the left foot was performed with the administration of intravenous contrast. Multiplanar reformatted images are provided for review. Automated exposure control, iterative reconstruction, and/or weight based adjustment of the mA/kV was utilized to reduce the radiation dose to as low as reasonably achievable.; CT of the left tibia and fibula was performed with the administration of intravenous contrast. Multiplanar reformatted images are provided for review. Automated exposure control, iterative reconstruction, and/or weight based adjustment of the mA/kVwas utilized to reduce the radiation dose to as low as reasonably achievable.; CT of the right footwas performed with the administration of intravenous contrast. Multiplanar reformatted images are pr ovided for review. Automated exposure control, iterative reconstruction, and/or weight based adjustment of the mA/kV was utilized to reduce the radiation dose to as low as reasonably achievable. COMPARISON: 01/02/2024 HISTORY ORDERING SYSTEM PROVIDED HISTORY: falls / wounds TECHNOLOGIST PROVIDED HISTORY: falls / wounds Additional Contrast?->1; ORDERING SYSTEM PROVIDED HISTORY: wounds / falls TECHNOLOGIST PROVIDED HISTORY: wounds / falls Additional Contrast?->1 FINDINGS: Right tibia/fibulaand foot: Bones: No evidence of acute fracture or dislocation. No aggressive appearing osseous abnormality or periostitis. Plantar calcaneal spur. Soft Tissue: Severe subcutaneous edema throughout the lower calf, ankle and foot most pronounced dorsally. No drainable fluid collection. Extensive atherosclerotic vascular calcifications. No soft tissue gas. No focal intramuscular abnormality. Joint: Ukta-ay-hjseynbn tricompartmental osteoarthritis of the knee joint. No osseous erosions. Left tibia/fibula and foot: Bones: No evidence of acute fracture or dislocation. No aggressive appearing osseous abnormality or periostitis. Soft Tissue: Extensive subcutaneous edema throughout the calf, ankle and foot. Focal area of increased soft tissue swelling within the lateral dorsal forefoot, without drainable fluid collection in this region, possibly related to underlying hematoma or phlegmon (series8/image 430 and series 609/image 155). Focal area of non enhancement within the plantar foot soft tissues may reflect tissue necrosis (series 8/image 417 and series 609/image 117). Small ulceration within the lateral ankle skin with adjacent focus of soft tissue gas (series 8/images 363-367). Visualized portions of a popliteal bypass graft appear occluded. No focal intramuscular abnormality. Joint: Moderate to severe osteoarthritis of the knee joint. No osseous erosions. CT right tibia/fibula and foot: 1. No acute fracture or CT evidence of osteomyelitis. 2. Extensive subcutaneous edema throughout the lower extremity which may represent cellulitis. No drainable fluidcollection or soft tissue gas identified. 3. Additional findings, as above. CT left tibia/fibula and foot: 1. Extensive lower extremity subcutaneous edema which may reflect cellulitis. Focal area of non enhancement within the plantar heel soft tissues possibly representing tissue necrosis. No drainable fluid collection identified in this region. MR follow-up may be useful as clinically warranted.2. Focally increased superficial soft tissue edema within the lateral dorsal forefoot possibly repre senting phlegmon or small hematoma. No drainable fluid collection identified in this region at thistime. 3. Small skin ulceration overlying the lateral malleolus with subjacent focus of subcutaneousair. No gross evidence of necrotizing fasciitis. 4. No acute fracture or CT evidence of osteomyelitis. CT CHEST ABDOMEN PELVIS W CONTRAST Additional Contrast? None Result Date: 08/06/2024 EXAMINATION: CT OF THE CHEST, ABDOMEN, AND PELVIS WITH CONTRAST 08/06/2024 4:02 pm TECHNIQUE: CT of the chest, abdomen and pelvis was performed with the administration of intravenous contrast. Multiplanar reformatted images are provided for review. Automated exposure control, iterative reconstruction, and/or weight based adjustment of the mA/kV was utilized to reduce the radiation dose to as low asreasonably achievable. COMPARISON: CT chest December 13, 2022. CT abdomen January 04, 2022. HISTORY: ORDERING SYSTEM PROVIDED HISTORY: SOB / weight loss TECHNOLOGIST PROVIDED HISTORY: SOB / weight loss FINDINGS: Chest: Mediastinum: 7 mm calcification right lobe of the thyroid. Calcified plaque along the aortic arch and moderate least severe stenosis of the brachiocephalic artery. Cardiomegaly andcalcific coronary artery disease. Prominent main pulmonary artery measures over 4 cm suggestive of possible pulmonary hypertension. Lungs/pleura: Subsegmental atelectasis left lung base. Lungs otherwise clear. Soft Tissues/Bones: Mild spondylosis and degenerative disc disease. Multilevel vacuum disc phenomena. Abdomen/Pelvis: Organs: Ventral hernia is wide mouth and contains loops of small and large bowel without evidence of obstruction. The liver, spleen, pancreas, and adrenals appear normal. Gallbladder surgically absent. Dilated intra and extrahepatic bile ducts. Moderately severe right renal atrophy. Left kidney normal. The bladder appears normal. GI/Bowel: The stomach,small bowel, and colon appear normal. Increased stool in the colon. A few air-fluid levels are noted in the small [place] l. Stomach normal. Appendix normal. Pelvis: Fem-fem bypass graft appears discontiguous and occluded. Bilateral superficial femoral artery occlusion or near occlusion is noted. Peritoneum/Retroperitoneum: . There is no pathologic adenopathy. Calcified plaque along the aorta and its branches. [place] aorta occluded or nearly occluded. Aortic graft appears opacified. No pathologic retroperitoneal lymphadenopathy. IVC normal. Bones/Soft Tissues: Degenerative disc disease and spondylosis. Coxa plana right hip. The cystic changes noted on either side of the joint. Cortical defect noted within the superomedial acetabulum. Compression fracture mild L2. Large posterior bridging disc marginal osteophyte causing moderate spinal stenosis. Grade 1 spondylolisthesis L2-3. Bilateral pars defects noted atL1 and L2. 1. Fem-fem bypass graft appears discontiguous and occluded. Bilateral superficial femoral artery occlusion or near occlusion is noted. Age is indeterminate. 2. Cardiomegaly and calcific coronary artery disease. 3. Prominent main pulmonary artery measures over 4 cm suggestive of possible pulmonary hypertension. 4. Ventral hernia is wide mouth and contains loops of small and large bowel without evidence of obstruction. 5. Moderately severe right renal atrophy. 6. Increased stool in the colon. 7. A few air-fluid levels are noted in the small bowel. 8. 7 mm calcification right lobe of the thyroid. Recommend follow-up nonemergent thyroid ultrasound. 9. 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 10. Aortic graft appears opacified. 11. Compression fracture L2, age indeterminate. 12. Large posterior disc marginal osteophyte causing moderately severe spinal stenosis centrally.13. Grade 1 spondylolisthesis L2-3 and bilateral pars defects at L2 and L3. 14. Multilevel vacuum disc phenomena. CT HEAD WO CONTRAST Result Date: 08/06/2024 EXAMINATION: CT OF THE HEAD WITHOUT CONTRAST 08/06/2024 4:01 pm TECHNIQUE: CT of the head was performed without the administration of intravenous contrast. Automated exposure control, iterative reconstruction, and/or weight based adjustment of the mA/kV was utilized to reduce the radiation dose to aslow as reasonably achievable. COMPARISON: 02/09/2021 HISTORY: Falls. FINDINGS: Image quality degraded by motion artifact. BRAIN/VENTRICLES: No acute intracranial hemorrhage, mass effect, or midline shift. No abnormal extra-axial fluid collection. The stephenson-white differentiation is maintained withoutevidence of an acute infarct. Mild-moderate parenchymal volume loss and chronic small vessel ischemic changes. No hydrocephalus. ORBITS: The visualized portion of the orbits demonstrate no acute abnormality. SINUSES: The visualized paranasal sinuses and mastoid air cells demonstrate no acute abnormality. SOFT TISSUES/SKULL: Mild hematoma along the left forehead. No acute calvarial fracture. No acute intracranial abnormality or calvarial fracture. ASSESSMENT: Principal Problem: Cellulitis of lower extremity, unspecified laterality Active Problems: Diabetic polyneuropathy associated with type 2 diabetes mellitus (HCC) Primary hypertension Severe malnutrition Tobacco abuse disorder CAD (coronary artery disease) COPD (chronic obstructive pulmonary disease) ([facility]) Chronic right hip pain Weight loss Oxygen dependent - 2L per baseline Resolved Problems: * No resolved hospital problems. * Patient Active Problem List Diagnosis Date Noted Unstable angina ([facility]) 03/17/2020 Angina, class III 02/25/2018 Diabetic ulcer of toe of left foot associated with type 2 diabetes mellitus, with fat layer exposed([facility]) 01/24/2017 CAD S/P percutaneous coronary angioplasty 08/30/2013 Severe malnutrition 08/07/2024 Left hand pain 06/11/2022 Primary hypertension 05/04/2022 Chronic obstructive pulmonary disease ([facility]) 04/09/2022 Chronic suppurative otitis media of left ear 04/09/2022 Mass of left thigh 04/09/2022 Personal history of tobacco use 03/13/2022 Functional incontinence 03/13/2022 Non-recurrent acute suppurative otitis media of left ear without spontaneous rupture of tympanic membrane 03/13/2022 Chronic cough 03/13/2022 Cystitis 02/15/2022 Chronic pain syndrome 02/15/2022 Chronic left hip pain 12/18/2021 Recurrent abdominal hernia without obstruction or gangrene 11/30/2021 Right lower quadrant abdominal mass 11/30/2021 Shortness of breath 11/23/2021 Cystic mass of pancreas 08/17/2021 Pancreatic mass 08/17/2021 Left leg cellulitis 08/17/2021 Excessive ear wax, bilateral 08/17/2021 Bronchitis 07/25/2021 Diabetic polyneuropathy associated with type 2 diabetes mellitus ([facility]) 01/24/2017 Ventral hernia 08/30/2013 Fall 08/06/2024 Cellulitis of lower extremity, unspecified laterality 08/06/2024 Oxygen dependent - 2L per baseline 08/06/2024 Acute insomnia 07/27/2024 Diabetic ulcer of left heel associated with type 2 diabetes mellitus, with fat layer exposed ([facility]) 07/21/2024 Mouth sore 07/21/2024 Weight loss 06/24/2024 Closed fracture of pelvis ([facility]) 06/23/2024 Closed head injury 06/23/2024 Closed fracture of nasal bone 06/23/2024 Gastric ulcer without hemorrhage or perforation 06/23/2024 Cellulitis 06/15/2024 Dry skin 06/15/2024 Numbness 05/16/2024 Restlessness and agitation 05/16/2024 Neuropathy 04/30/2024 Ischemic rest pain of lower extremity 04/17/2024 Disorder of arteries and arterioles, unspecified 04/16/2024 Pain in leg, unspecified 04/16/2024 Disorder of circulatory system 04/16/2024 Musculoskeletal problem 04/16/2024 Viral infection, unspecified 03/18/2024 Erythematous condition, unspecified 03/07/2024 Myocardial infarction (HCC) 03/02/2024 Presence of stent in coronary artery 03/02/2024 Pulmonary emboli (HCC) 03/02/2024 Spondylosis of lumbar spine 03/02/2024 Spinal stenosis of lumbar region 03/02/2024 Breast cancer screening by mammogram 03/02/2024 Traumatic skin ulcer, limited to breakdown of skin ([facility]) 01/10/2024 Ulcer of left great toe due to diabetes mellitus ([facility]) 01/10/2024 Acute lower GI bleeding 01/09/2024 Upper GI bleed 01/09/2024 Transient alteration of awareness 01/09/2024 Acute lower gastrointestinal hemorrhage 01/09/2024 Lower GI bleed 01/09/2024 Vomiting 01/06/2024 Chronic coughing 08/13/2023 Allergic rhinitis 08/13/2023 COPD with acute exacerbation ([facility]) 07/12/2023 Elevated hemoglobin A1c 06/10/2023 Generalized abdominal pain 06/10/2023 Heart failure ([facility]) 04/12/2023 Anemia 01/28/2023 Acute congestive heart failure, unspecified heart failure type ([facility]) 12/13/2022 Spleen hematoma 12/13/2022 Hypertensive emergency 11/09/2022 Hernia of abdominal wall 10/29/2022 Chest congestion 09/21/2022 Laceration of spleen 09/02/2022 Pulmonary HTN ([facility]) 09/02/2022 Spleen injury 09/02/2022 Chronic obstructive pulmonary disease with acute exacerbation ([facility]) 08/13/2022 Hypoxia 08/07/2022 Acute bilateral low back pain with bilateral sciatica 07/10/2022 Hyperglycemia 07/10/2022 PRES (posterior reversible encephalopathy syndrome) 08/25/2021 Diarrhea 07/04/2021 Chronic diastolic congestive heart failure (HCC) 07/04/2021 Malnutrition 06/22/2021 Right sided abdominal pain 06/22/2021 Mass of pancreas 06/22/2021 Nausea 06/22/2021 Sleeping difficulty 06/22/2021 Insomnia 06/22/2021 Weakness generalized 05/12/2021 Hypovitaminosis D 05/04/2021 Moderate malnutrition 05/02/2021 Pneumonia due to COVID-19 virus -- Not Vaccinated 05/01/2021 Respiratory distress 05/01/2021 Abdominal aortic aneurysm without rupture 04/18/2021 Abdominal aortic aneurysm (AAA) without rupture 04/18/2021 Muscle spasm 04/06/2021 Right hip pain 04/06/2021 Urinary incontinence 04/06/2021 Chronic pain of right knee 03/23/2021 Chronic right hip pain 03/23/2021 Sacral pain 03/23/2021 Lumbar back pain with radiculopathy affecting right lower extremity 03/23/2021 Chronic left shoulder pain 03/23/2021 Leg edema 03/23/2021 Hyperlipidemia 03/23/2021 Depression 03/23/2021 Anxiety 03/23/2021 Acute on chronic diastolic heart failure (HCC) 03/18/2021 Cellulitis of left lower extremity 02/21/2021 S/P cardiac cath 03/18/2020 S/P angioplasty with stent 03/18/2020 Acute coronary syndrome (HCC) 03/17/2020 E. coli UTI 07/20/2019 AMS (altered mental status) 07/18/2019 Pneumonia due to infectious organism 04/23/2019 COPD (chronic obstructive pulmonary disease) ([facility]) Diabetes mellitus ([facility]) Hypertension Community acquired bacterial pneumonia 04/21/2019 COPD exacerbation ([facility]) 06/06/2018 COPD with exacerbation ([facility]) 06/05/2018 Hx of blood clots CAD (coronary artery disease) Severe obesity ([facility]) 11/05/2017 Laceration of nose 10/22/2017 Postoperative state 06/27/2017 Tobacco abuse counseling 05/27/2014 Tobacco abuse disorder 05/27/2014 Pain in lower limb 05/27/2014 Dizziness 05/27/2014 Intolerance of drug 05/27/2014 Atherosclerosis of both carotid arteries 05/27/2014 Hypothyroidism 05/27/2014 Abnormal nuclear stress test 01/22/2013 Smoking greater than 40 pack years 01/22/2013 Claudication in peripheral vascular disease 11/06/2012 Stable angina 11/06/2012 PLAN: Podiatry involved Critical Care Time: 0 Antibiotic MIPS Advanced Care Planning documentation: [x] I have confirmed that the patient's Advance Care Plan is present, Code Status is documented, orsurrogate decision maker is listed in the patient's medical record [If yes , STOP HERE] [] The patient's Advance Care Plan is NOT present because: [] I confirmed today that the patient does not wish or was not able to name a surrogate decision maker or provide and advance care plan. [] Hospice care is currently being provided or has been provided within the calendar year. [] I did NOT confirm today the presence of an Advance Care Plan or surrogate decision maker documented within the patient's medical record. [DOES NOT SATISFY MIPS PERFORMANCE] Gordo De Santiago MD , M.D. * Vahid Valera, VAMP LINER - 08/09/2024 7:52 AM EDT Physical Therapy Facility/Department: [facility] Daily Treatment Note NAME: Jonatan Olivarez : 1960 Date of Service: 08/09/2024 Discharge Recommendations: Continue to assess pending progress, Subacute/Penitentiary Facility, Home with Home health PT Patient Diagnosis(es): The primary encounter diagnosis was Claudication in peripheral vascular disease. Diagnoses of PAD (peripheral artery disease), Ulcer of both feet with fat layer exposed (HCC), Oxygen dependent - 2L per baseline, Cellulitis of lower extremity, unspecified laterality, and Fall,subsequent encounter were also pertinent to this visit. Assessment Assessment: Bed mobility: Mod I. Transfers:CGA/SBA. Pt ambulated 5ftx1 from bed <-> chair with FWW and CGA for safety. Slow cadance, decreased B LE step length with B knee bend and forward flexed posture. No LOB or unsteadiness. Treatment limited this date d/t increased pain in bilateral feet. Will continue to progress as tolerated. Activity Tolerance: Patient tolerated treatment well Plan Physical Therapy Plan General Plan: 2 times a day 7 days a week Specific Instructions for Next Treatment: 1x daily weekends and holidays. Current Treatment Recommendations: Strengthening;Balance training;ROM;Functional mobility training;Transfer training;ADL/Self-care training;IADL training;Endurance training;Pain management;Manual;Neuromuscular re- education;Stair training;Gait training;Home exercise program;Safety education & training;Patient/Caregiver education & training;Modalities;Therapeutic activities Restrictions Restrictions/Precautions Restrictions/Precautions: General Precautions, Contact Precautions, Fall Risk Activity Level: Up with Assist Required Braces or Orthoses?: No Subjective Subjective Subjective: Pt in bed upon arrival, agreeable to therapy at this time Pain: L foot 10/10, R foot 6/10 Objective Bed Mobility Training Bed Mobility Training: Yes Overall Level of Assistance: Stand by assistance;Supervision;Modified independent Interventions: Verbal cues Rolling: Modified independent Supine to Sit: Stand by assistance;Supervision Sit to Supine: Stand by assistance;Supervision Scooting: Stand by assistance;Supervision Transfer Training Transfer Training: Yes Overall Level of Assistance: Contact guard assistance;Stand by assistance Interventions: Safety awareness training Sit to Stand: Contact guard assistance;Stand by assistance Stand to Sit: Stand by assistance;Contact guard assistance Bed to Chair: Stand by assistance;Contact guard assistance Gait Gait Training: Yes Overall Level of Assistance: Contact guard assistance Distance (ft): 5 Feet Assistive Device: Walker, rolling Interventions: Safety awareness training Speed/Valeria: Slow;Shuffled Step Length: Left shortened;Right shortened Gait Abnormalities: Antalgic PT Exercises Exercise Treatment: Seated B LE therex x10-15 in all planes of motion Safety Devices Type of Devices: All fall risk precautions in place;Call light within reach;Chair alarm in place;Left in chair Goals Short Term Goals Time Frame for Short Term Goals: 10 days Short Term Goal 1: Patient will ambulate 50' with FWW, supervision, without LOB Short Term Goal 2: Patient will perform bed mobility tasks and transfers with SBA Short Term Goal 3: Patient will tolerate 20-30 minutes of therex/act to improve endurance for ADLs. Patient Goals Patient Goals : Decrease pain Education Patient Education Education Given To: Patient Education Provided: Role of Therapy;Plan of Care Education Method: Verbal Barriers to Learning: None Education Outcome: Verbalized understanding Therapy Time Individual Concurrent Group Co-treatment Time In 732 Time Out 0750 Minutes 17 Vahid Valera PTA Cosigned by Sonja Contreras PT at 08/09/2024 8:15 AM EDT * Louise Mccoy RN - 08/09/2024 6:57 AM EDT Vitals and assessment complete at this time. See flowsheets for details. Patient is resting in bed.Patient is A&O x4. Breathing is regular and unlabored. SOB noted with exertion. SPO2 is 94% on chronic 2L. Scant serosanguinous drainage noted to dressing to left foot. Patient denies further needs at this time. Call light is within reach. Care ongoing. * Jocelyn Yarbrough RN - 08/08/2024 6:32 PM EDT Pt sitting up in the bed watching TV when chief writer entered the room. Pt is A&O x4. Vitals and assessment as charted. Pt rated her pain a 8 out of 10 in bilat feet and legs. Ladle Operator educated pt that her pain medications is due at 1909 and pt verbalized understanding. Pt denies any further needs at this time. Call light within reach. Bed alarm on. * Vahid Valera PTA - 08/08/2024 9:10 AM EDT [facility] Inpatient/Observation/Outpatient Rehabilitation Date: 08/08/2024 Patient Name: Jonatan Olivarez [x] Inpatient Acute/Observation [] Outpatient : 1960 [x] Pt refused/declined therapy at this time due to: Pt pleasantly declined therapy at this time d/t increased foot pain. Pt stated i'm not doing no physical therapy today . Pt declined exercises inthe chair. Therapist/System Designer will attempt to see this patient, at our earliest opportunity. Vahid Valera PTA Date: 08/08/2024 Cosigned by Sonja Contreras PT at 08/09/2024 8:15 AM EDT * Lucille Mistry - 08/08/2024 7:20 AM EDT Pt resting in bed, denies needs at this time. Vitals and assessment completed. Call light in reach,bed alarm on * Gordo De Santiago MD - 08/08/2024 6:52 AM EDT Progress Note SUBJECTIVE: FU related to denies any issues with the feet. She denies any shortness of breath. OBJECTIVE: Vitals: TEMPERATURE: Current - Temp: 97.6 F (36.4 C); Max - Temp Av.9 F (36.6 C) Min: 97.6 F (36.4 C) Max: 98.3 F (36.8 C) RESPIRATIONS RANGE: Resp Av.4 Min: 16 Max: 20 PULSE RANGE: Pulse Av.3 Min: 74 Max: 75 BLOOD PRESSURE RANGE: Systolic (24hrs), Av , Min:74 , Max:158 ; Diastolic (24hrs), Av, Min:36, Max:60 PULSE OXIMETRY RANGE: SpO2 Av.8 % Min: 84 % Max: 93 % 24HR INTAKE/OUTPUT: Intake/Output Summary (Last 24 hours) at 08/08/2024 0652 Last data filed at 08/08/2024 0406 Gross per 24 hour Intake 2916 ml Output -- Net 2916 ml Exam: General: alert HEENT: Supple neck & negative Heart: Regular Lungs: clear to auscultation bilaterally & no retractions Abdomen: Normal & soft, No tenderness and BS normal Extremities: Large bandage noted on the left foot. Definitely has some different areas of skin breakdown with some bruising. Several different blisters. And No edema Neuro: NonFocal Diagnostic Data: Lab Results Component Value Date WBC 8.4 08/08/2024 HGB 9.5 (L) 08/08/2024 PLT 277 08/08/2024 Lab Results Component Value Date BUN 11 08/08/2024 CREATININE 0.8 08/08/2024 NA 142 08/08/2024 K 3.6 (L) 08/08/2024 CALCIUM 7.8 (L) 08/08/2024 CL 109 (H) 08/08/2024 CO2 25 08/08/2024 LABGLOM 86 08/08/2024 Lab Results Component Value Date WBCUA 5 TO 10 01/02/2024 RBCUA 0 TO 2 01/02/2024 LEUKOCYTESUR SMALL (A) 01/02/2024 GLUCOSEU NEGATIVE 01/02/2024 KETUA NEGATIVE 01/02/2024 PROTEINU 2+ (A) 01/02/2024 HGBUR NEGATIVE 01/02/2024 CASTUA NOT REPORTED 05/12/2021 BACTERIA 2+ (A) 01/02/2024 YEAST 2+ (A) 05/12/2021 Lab Results Component Value Date MYOGLOBIN 49 11/15/2012 TROPONINT NOT REPORTED 05/12/2021 CKTOTAL 70 07/17/2019 CKMB 4.3 (H) 11/15/2012 PROBNP 7,206 (H) 01/02/2024 Vascular duplex lower extremity arteries bilateral Result Date: 08/07/2024 The right superficial femoral artery is occluded with distal reconstitution of the midportion of the superficial femoral artery and monophasic flow throughout. The left superficial femoral and popliteal arteries are occluded as is the femoral-popliteal bypass graft. Tibial arterial flow reconstitutes via collaterals. CT FOOT LEFT W CONTRAST Result Date: 08/06/2024 EXAMINATION: CT OF THE RIGHT TIBIA AND FIBULA WITH CONTRAST; CT OF THE LEFT FOOT WITH CONTRAST; CT OF THE LEFT TIBIA AND FIBULA WITH CONTRAST; CT OF THE RIGHT FOOT WITH CONTRAST 08/06/2024 4:06 pm TECHNIQUE: CT of the right tibia and fibula was performed with the administration of intravenous contrast. Multiplanar reformatted images are provided for review. Automated exposure control, iterative reconstruction, and/or weight based adjustment of the mA/kV was utilized to reduce the radiation dose to as low as reasonably achievable.; CT of the left foot was performed with the administration of intravenous contrast. Multiplanar reformatted images are provided for review. Automated exposure control, iterative reconstruction, and/or weight based adjustment of the mA/kV was utilized to reduce the radiation dose to as low as reasonably achievable.; CT of the left tibia and fibula was performed with the administration of intravenous contrast. Multiplanar reformatted images are provided for review. Automated exposure control, iterative reconstruction, and/or weight based adjustment of the mA/kVwas utilized to reduce the radiation dose to as low as reasonably achievable.; CT of the right footwas performed with the administration of intravenous contrast. Multiplanar reformatted images are pr ovided for review. Automated exposure control, iterative reconstruction, and/or weight based adjustment of the mA/kV was utilized to reduce the radiation dose to as low as reasonably achievable. COMPARISON: 01/02/2024 HISTORY ORDERING SYSTEM PROVIDED HISTORY: falls / wounds TECHNOLOGIST PROVIDED HISTORY: falls / wounds Additional Contrast?->1; ORDERING SYSTEM PROVIDED HISTORY: wounds / falls TECHNOLOGIST PROVIDED HISTORY: wounds / falls Additional Contrast?->1 FINDINGS: Right tibia/fibulaand foot: Bones: No evidence of acute fracture or dislocation. No aggressive appearing osseous abnormality or periostitis. Plantar calcaneal spur. Soft Tissue: Severe subcutaneous edema throughout the lower calf, ankle and foot most pronounced dorsally. No drainable fluid collection. Extensive atherosclerotic vascular calcifications. No soft tissue gas. No focal intramuscular abnormality. Joint: [id number] tricompartmental osteoarthritis of the knee joint. No osseous erosions. Left tibia/fibula and foot: Bones: No evidence of acute fracture or dislocation. No aggressive appearing osseous abnormality or periostitis. Soft Tissue: Extensive subcutaneous edema throughout the calf, ankle and foot. Focal area of increased soft tissue swelling within the lateral dorsal forefoot, without drainable fluid collection in this region, possibly related to underlying hematoma or phlegmon (series8/image 430 and series 609/image 155). Focal area of non enhancement within the plantar foot soft tissues may reflect tissue necrosis (series 8/image 417 and series 609/image 117). Small ulceration within the lateral ankle skin with adjacent focus of soft tissue gas (series 8/images 363-367). Visualized portions of a popliteal bypass graft appear occluded. No focal intramuscular abnormality. Joint: Moderate to severe osteoarthritis of the knee joint. No osseous erosions. CT right tibia/fibula and foot: 1. No acute fracture or CT evidence of osteomyelitis. 2. Extensive subcutaneous edema throughout the lower extremity which may represent cellulitis. No drainable fluidcollection or soft tissue gas identified. 3. Additional findings, as above. CT left tibia/fibula and foot: 1. Extensive lower extremity subcutaneous edema which may reflect cellulitis. Focal area of non enhancement within the plantar heel soft tissues possibly representing tissue necrosis. No drainable fluid collection identified in this region. MR follow-up may be useful as clinically warranted.2. Focally increased superficial soft tissue edema within the lateral dorsal forefoot possibly repre senting phlegmon or small hematoma. No drainable fluid collection identified in this region at thistime. 3. Small skin ulceration overlying the lateral malleolus with subjacent focus of subcutaneousair. No gross evidence of necrotizing fasciitis. 4. No acute fracture or CT evidence of osteomyelitis. CT TIBIA FIBULA LEFT W CONTRAST Result Date: 08/06/2024 EXAMINATION: CT OF THE RIGHT TIBIA AND FIBULA WITH CONTRAST; CT OF THE LEFT FOOT WITH CONTRAST; CT OF THE LEFT TIBIA AND FIBULA WITH CONTRAST; CT OF THE RIGHT FOOT WITH CONTRAST 08/06/2024 4:06 pm TECHNIQUE: CT of the right tibia and fibula was performed with the administration of intravenous contrast. Multiplanar reformatted images are provided for review. Automated exposure control, iterative reconstruction, and/or weight based adjustment of the mA/kV was utilized to reduce the radiation dose to as low as reasonably achievable.; CT of the left foot was performed with the administration of intravenous contrast. Multiplanar reformatted images are provided for review. Automated exposure control, iterative reconstruction, and/or weight based adjustment of the mA/kV was utilized to reduce the radiation dose to as low as reasonably achievable.; CT of the left tibia and fibula was performed with the administration of intravenous contrast. Multiplanar reformatted images are provided for review. Automated exposure control, iterative reconstruction, and/or weight based adjustment of the mA/kVwas utilized to reduce the radiation dose to as low as reasonably achievable.; CT of the right footwas performed with the administration of intravenous contrast. Multiplanar reformatted images are pr ovided for review. Automated exposure control, iterative reconstruction, and/or weight based adjustment of the mA/kV was utilized to reduce the radiation dose to as low as reasonably achievable. COMPARISON: 01/02/2024 HISTORY ORDERING SYSTEM PROVIDED HISTORY: falls / wounds TECHNOLOGIST PROVIDED HISTORY: falls / wounds Additional Contrast?->1; ORDERING SYSTEM PROVIDED HISTORY: wounds / falls TECHNOLOGIST PROVIDED HISTORY: wounds / falls Additional Contrast?->1 FINDINGS: Right tibia/fibulaand foot: Bones: No evidence of acute fracture or dislocation. No aggressive appearing osseous abnormality or periostitis. Plantar calcaneal spur. Soft Tissue: Severe subcutaneous edema throughout the lower calf, ankle and foot most pronounced dorsally. No drainable fluid collection. Extensive atherosclerotic vascular calcifications. No soft tissue gas. No focal intramuscular abnormality. Joint: [id number] tricompartmental osteoarthritis of the knee joint. No osseous erosions. Left tibia/fibula and foot: Bones: No evidence of acute fracture or dislocation. No aggressive appearing osseous abnormality or periostitis. Soft Tissue: Extensive subcutaneous edema throughout the calf, ankle and foot. Focal area of increased soft tissue swelling within the lateral dorsal forefoot, without drainable fluid collection in this region, possibly related to underlying hematoma or phlegmon (series8/image 430 and series 609/image 155). Focal area of non enhancement within the plantar foot soft tissues may reflect tissue necrosis (series 8/image 417 and series 609/image 117). Small ulceration within the lateral ankle skin with adjacent focus of soft tissue gas (series 8/images [id number]). Visualized portions of a popliteal bypass graft appear occluded. No focal intramuscular abnormality. Joint: Moderate to severe osteoarthritis of the knee joint. No osseous erosions. CT right tibia/fibula and foot: 1. No acute fracture or CT evidence of osteomyelitis. 2. Extensive subcutaneous edema throughout the lower extremity which may represent cellulitis. No drainable fluidcollection or soft tissue gas identified. 3. Additional findings, as above. CT left tibia/fibula and foot: 1. Extensive lower extremity subcutaneous edema which may reflect cellulitis. Focal area of non enhancement within the plantar heel soft tissues possibly representing tissue necrosis. No drainable fluid collection identified in this region. MR follow-up may be useful as clinically warranted.2. Focally increased superficial soft tissue edema within the lateral dorsal forefoot possibly repre senting phlegmon or small hematoma. No drainable fluid collection identified in this region at thistime. 3. Small skin ulceration overlying the lateral malleolus with subjacent focus of subcutaneousair. No gross evidence of necrotizing fasciitis. 4. No acute fracture or CT evidence of osteomyelitis. CT TIBIA FIBULA RIGHT W CONTRAST Result Date: 08/06/2024 EXAMINATION: CT OF THE RIGHT TIBIA AND FIBULA WITH CONTRAST; CT OF THE LEFT FOOT WITH CONTRAST; CT OF THE LEFT TIBIA AND FIBULA WITH CONTRAST; CT OF THE RIGHT FOOT WITH CONTRAST 08/06/2024 4:06 pm TECHNIQUE: CT of the right tibia and fibula was performed with the administration of intravenous contrast. Multiplanar reformatted images are provided for review. Automated exposure control, iterative reconstruction, and/or weight based adjustment of the mA/kV was utilized to reduce the radiation dose to as low as reasonably achievable.; CT of the left foot was performed with the administration of intravenous contrast. Multiplanar reformatted images are provided for review. Automated exposure control, iterative reconstruction, and/or weight based adjustment of the mA/kV was utilized to reduce the radiation dose to as low as reasonably achievable.; CT of the left tibia and fibula was performed with the administration of intravenous contrast. Multiplanar reformatted images are provided for review. Automated exposure control, iterative reconstruction, and/or weight based adjustment of the mA/kVwas utilized to reduce the radiation dose to as low as reasonably achievable.; CT of the right footwas performed with the administration of intravenous contrast. Multiplanar reformatted images are pr ovided for review. Automated exposure control, iterative reconstruction, and/or weight based adjustment of the mA/kV was utilized to reduce the radiation dose to as low as reasonably achievable. COMPARISON: 01/02/2024 HISTORY ORDERING SYSTEM PROVIDED HISTORY: falls / wounds TECHNOLOGIST PROVIDED HISTORY: falls / wounds Additional Contrast?->1; ORDERING SYSTEM PROVIDED HISTORY: wounds / falls TECHNOLOGIST PROVIDED HISTORY: wounds / falls Additional Contrast?->1 FINDINGS: Right tibia/fibulaand foot: Bones: No evidence of acute fracture or dislocation. No aggressive appearing osseous abnormality or periostitis. Plantar calcaneal spur. Soft Tissue: Severe subcutaneous edema throughout the lower calf, ankle and foot most pronounced dorsally. No drainable fluid collection. Extensive atherosclerotic vascular calcifications. No soft tissue gas. No focal intramuscular abnormality. Joint: [id number] tricompartmental osteoarthritis of the knee joint. No osseous erosions. Left tibia/fibula and foot: Bones: No evidence of acute fracture or dislocation. No aggressive appearing osseous abnormality or periostitis. Soft Tissue: Extensive subcutaneous edema throughout the calf, ankle and foot. Focal area of increased soft tissue swelling within the lateral dorsal forefoot, without drainable fluid collection in this region, possibly related to underlying hematoma or phlegmon (series8/image 430 and series 609/image 155). Focal area of non enhancement within the plantar foot soft tissues may reflect tissue necrosis (series 8/image 417 and series 609/image 117). Small ulceration within the lateral ankle skin with adjacent focus of soft tissue gas (series 8/images [id number]). Visualized portions of a popliteal bypass graft appear occluded. No focal intramuscular abnormality. Joint: Moderate to severe osteoarthritis of the knee joint. No osseous erosions. CT right tibia/fibula and foot: 1. No acute fracture or CT evidence of osteomyelitis. 2. Extensive subcutaneous edema throughout the lower extremity which may represent cellulitis. No drainable fluidcollection or soft tissue gas identified. 3. Additional findings, as above. CT left tibia/fibula and foot: 1. Extensive lower extremity subcutaneous edema which may reflect cellulitis. Focal area of non enhancement within the plantar heel soft tissues possibly representing tissue necrosis. No drainable fluid collection identified in this region. MR follow-up may be useful as clinically warranted.2. Focally increased superficial soft tissue edema within the lateral dorsal forefoot possibly repre senting phlegmon or small hematoma. No drainable fluid collection identified in this region at thistime. 3. Small skin ulceration overlying the lateral malleolus with subjacent focus of subcutaneousair. No gross evidence of necrotizing fasciitis. 4. No acute fracture or CT evidence of osteomyelitis. CT FOOT RIGHT W CONTRAST Result Date: 08/06/2024 EXAMINATION: CT OF THE RIGHT TIBIA AND FIBULA WITH CONTRAST; CT OF THE LEFT FOOT WITH CONTRAST; CT OF THE LEFT TIBIA AND FIBULA WITH CONTRAST; CT OF THE RIGHT FOOT WITH CONTRAST 08/06/2024 4:06 pm TECHNIQUE: CT of the right tibia and fibula was performed with the administration of intravenous contrast. Multiplanar reformatted images are provided for review. Automated exposure control, iterative reconstruction, and/or weight based adjustment of the mA/kV was utilized to reduce the radiation dose to as low as reasonably achievable.; CT of the left foot was performed with the administration of intravenous contrast. Multiplanar reformatted images are provided for review. Automated exposure control, iterative reconstruction, and/or weight based adjustment of the mA/kV was utilized to reduce the radiation dose to as low as reasonably achievable.; CT of the left tibia and fibula was performed with the administration of intravenous contrast. Multiplanar reformatted images are provided for review. Automated exposure control, iterative reconstruction, and/or weight based adjustment of the mA/kVwas utilized to reduce the radiation dose to as low as reasonably achievable.; CT of the right footwas performed with the administration of intravenous contrast. Multiplanar reformatted images are pr ovided for review. Automated exposure control, iterative reconstruction, and/or weight based adjustment of the mA/kV was utilized to reduce the radiation dose to as low as reasonably achievable. COMPARISON: 01/02/2024 HISTORY ORDERING SYSTEM PROVIDED HISTORY: falls / wounds TECHNOLOGIST PROVIDED HISTORY: falls / wounds Additional Contrast?->1; ORDERING SYSTEM PROVIDED HISTORY: wounds / falls TECHNOLOGIST PROVIDED HISTORY: wounds / falls Additional Contrast?->1 FINDINGS: Right tibia/fibulaand foot: Bones: No evidence of acute fracture or dislocation. No aggressive appearing osseous abnormality or periostitis. Plantar calcaneal spur. Soft Tissue: Severe subcutaneous edema throughout the lower calf, ankle and foot most pronounced dorsally. No drainable fluid collection. Extensive atherosclerotic vascular calcifications. No soft tissue gas. No focal intramuscular abnormality. Joint: [id number] tricompartmental osteoarthritis of the knee joint. No osseous erosions. Left tibia/fibula and foot: Bones: No evidence of acute fracture or dislocation. No aggressive appearing osseous abnormality or periostitis. Soft Tissue: Extensive subcutaneous edema throughout the calf, ankle and foot. Focal area of increased soft tissue swelling within the lateral dorsal forefoot, without drainable fluid collection in this region, possibly related to underlying hematoma or phlegmon (series8/image 430 and series 609/image 155). Focal area of non enhancement within the plantar foot soft tissues may reflect tissue necrosis (series 8/image 417 and series 609/image 117). Small ulceration within the lateral ankle skin with adjacent focus of soft tissue gas (series 8/images [id number]). Visualized portions of a popliteal bypass graft appear occluded. No focal intramuscular abnormality. Joint: Moderate to severe osteoarthritis of the knee joint. No osseous erosions. CT right tibia/fibula and foot: 1. No acute fracture or CT evidence of osteomyelitis. 2. Extensive subcutaneous edema throughout the lower extremity which may represent cellulitis. No drainable fluidcollection or soft tissue gas identified. 3. Additional findings, as above. CT left tibia/fibula and foot: 1. Extensive lower extremity subcutaneous edema which may reflect cellulitis. Focal area of non enhancement within the plantar heel soft tissues possibly representing tissue necrosis. No drainable fluid collection identified in this region. MR follow-up may be useful as clinically warranted.2. Focally increased superficial soft tissue edema within the lateral dorsal forefoot possibly repre senting phlegmon or small hematoma. No drainable fluid collection identified in this region at thistime. 3. Small skin ulceration overlying the lateral malleolus with subjacent focus of subcutaneousair. No gross evidence of necrotizing fasciitis. 4. No acute fracture or CT evidence of osteomyelitis. CT CHEST ABDOMEN PELVIS W CONTRAST Additional Contrast? None Result Date: 08/06/2024 EXAMINATION: CT OF THE CHEST, ABDOMEN, AND PELVIS WITH CONTRAST 08/06/2024 4:02 pm TECHNIQUE: CT of the chest, abdomen and pelvis was performed with the administration of intravenous contrast. Multiplanar reformatted images are provided for review. Automated exposure control, iterative reconstruction, and/or weight based adjustment of the mA/kV was utilized to reduce the radiation dose to as low asreasonably achievable. COMPARISON: CT chest December 13, 2022. CT abdomen January 04, 2022. HISTORY: ORDERING SYSTEM PROVIDED HISTORY: SOB / weight loss TECHNOLOGIST PROVIDED HISTORY: SOB / weight loss FINDINGS: Chest: Mediastinum: 7 mm calcification right lobe of the thyroid. Calcified plaque along the aortic arch and moderate least severe stenosis of the brachiocephalic artery. Cardiomegaly andcalcific coronary artery disease. Prominent main pulmonary artery measures over 4 cm suggestive of possible pulmonary hypertension. Lungs/pleura: Subsegmental atelectasis left lung base. Lungs otherwise clear. Soft Tissues/Bones: Mild spondylosis and degenerative disc disease. Multilevel vacuum disc phenomena. Abdomen/Pelvis: Organs: Ventral hernia is wide mouth and contains loops of small and large bowel without evidence of obstruction. The liver, spleen, pancreas, and adrenals appear normal. Gallbladder surgically absent. Dilated intra and extrahepatic bile ducts. Moderately severe right renal atrophy. Left kidney normal. The bladder appears normal. GI/Bowel: The stomach,small bowel, and colon appear normal. Increased stool in the colon. A few air-fluid levels are noted in the small [place] l. Stomach normal. Appendix normal. Pelvis: Fem-fem bypass graft appears discontiguous and occluded. Bilateral superficial femoral artery occlusion or near occlusion is noted. Peritoneum/Retroperitoneum: . There is no pathologic adenopathy. Calcified plaque along the aorta and its branches. [place] aorta occluded or nearly occluded. Aortic graft appears opacified. No pathologic retroperitoneal lymphadenopathy. IVC normal. Bones/Soft Tissues: Degenerative disc disease and spondylosis. Coxa plana right hip. The cystic changes noted on either side of the joint. Cortical defect noted within the superomedial acetabulum. Compression fracture mild L2. Large posterior bridging disc marginal osteophyte causing moderate spinal stenosis. Grade 1 spondylolisthesis L2-3. Bilateral pars defects noted atL1 and L2. 1. Fem-fem bypass graft appears discontiguous and occluded. Bilateral superficial femoral artery occlusion or near occlusion is noted. Age is indeterminate. 2. Cardiomegaly and calcific coronary artery disease. 3. Prominent main pulmonary artery measures over 4 cm suggestive of possible pulmonary hypertension. 4. Ventral hernia is wide mouth and contains loops of small and large bowel without evidence of obstruction. 5. Moderately severe right renal atrophy. 6. Increased stool in the colon. 7. A few air-fluid levels are noted in the small bowel. 8. 7 mm calcification right lobe of the thyroid. Recommend follow-up nonemergent thyroid ultrasound. 9. 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 10. Aortic graft appears opacified. 11. Compression fracture L2, age indeterminate. 12. Large posterior disc marginal osteophyte causing moderately severe spinal stenosis centrally.13. Grade 1 spondylolisthesis L2-3 and bilateral pars defects at L2 and L3. 14. Multilevel vacuum disc phenomena. CT HEAD WO CONTRAST Result Date: 08/06/2024 EXAMINATION: CT OF THE HEAD WITHOUT CONTRAST 08/06/2024 4:01 pm TECHNIQUE: CT of the head was performed without the administration of intravenous contrast. Automated exposure control, iterative reconstruction, and/or weight based adjustment of the mA/kV was utilized to reduce the radiation dose to aslow as reasonably achievable. COMPARISON: 02/09/2021 HISTORY: Falls. FINDINGS: Image quality degraded by motion artifact. BRAIN/VENTRICLES: No acute intracranial hemorrhage, mass effect, or midline shift. No abnormal extra-axial fluid collection. The stephenson-white differentiation is maintained withoutevidence of an acute infarct. Mild-moderate parenchymal volume loss and chronic small vessel ischemic changes. No hydrocephalus. ORBITS: The visualized portion of the orbits demonstrate no acute abnormality. SINUSES: The visualized paranasal sinuses and mastoid air cells demonstrate no acute abnormality. SOFT TISSUES/SKULL: Mild hematoma along the left forehead. No acute calvarial fracture. No acute intracranial abnormality or calvarial fracture. ASSESSMENT: Principal Problem: Cellulitis of lower extremity, unspecified laterality Active Problems: Diabetic polyneuropathy associated with type 2 diabetes mellitus ([facility]) Primary hypertension Severe malnutrition Tobacco abuse disorder CAD (coronary artery disease) COPD (chronic obstructive pulmonary disease) ([facility]) Chronic right hip pain Weight loss Oxygen dependent - 2L per baseline Resolved Problems: * No resolved hospital problems. * Patient Active Problem List Diagnosis Date Noted Unstable angina ([facility]) 03/17/2020 Angina, class III 02/25/2018 Diabetic ulcer of toe of left foot associated with type 2 diabetes mellitus, with fat layer exposed([facility]) 01/24/2017 CAD S/P percutaneous coronary angioplasty 08/30/2013 Severe malnutrition 08/07/2024 Left hand pain 06/11/2022 Primary hypertension 05/04/2022 Chronic obstructive pulmonary disease (HCC) 04/09/2022 Chronic suppurative otitis media of left ear 04/09/2022 Mass of left thigh 04/09/2022 Personal history of tobacco use 03/13/2022 Functional incontinence 03/13/2022 Non-recurrent acute suppurative otitis media of left ear without spontaneous rupture of tympanic membrane 03/13/2022 Chronic cough 03/13/2022 Cystitis 02/15/2022 Chronic pain syndrome 02/15/2022 Chronic left hip pain 12/18/2021 Recurrent abdominal hernia without obstruction or gangrene 11/30/2021 Right lower quadrant abdominal mass 11/30/2021 Shortness of breath 11/23/2021 Cystic mass of pancreas 08/17/2021 Pancreatic mass 08/17/2021 Left leg cellulitis 08/17/2021 Excessive ear wax, bilateral 08/17/2021 Bronchitis 07/25/2021 Diabetic polyneuropathy associated with type 2 diabetes mellitus ([facility]) 01/24/2017 Ventral hernia 08/30/2013 Fall 08/06/2024 Cellulitis of lower extremity, unspecified laterality 08/06/2024 Oxygen dependent - 2L per baseline 08/06/2024 Acute insomnia 07/27/2024 Diabetic ulcer of left heel associated with type 2 diabetes mellitus, with fat layer exposed ([facility]) 07/21/2024 Mouth sore 07/21/2024 Weight loss 06/24/2024 Closed fracture of pelvis ([facility]) 06/23/2024 Closed head injury 06/23/2024 Closed fracture of nasal bone 06/23/2024 Gastric ulcer without hemorrhage or perforation 06/23/2024 Cellulitis 06/15/2024 Dry skin 06/15/2024 Numbness 05/16/2024 Restlessness and agitation 05/16/2024 Neuropathy 04/30/2024 Ischemic rest pain of lower extremity 04/17/2024 Disorder of arteries and arterioles, unspecified 04/16/2024 Pain in leg, unspecified 04/16/2024 Disorder of circulatory system 04/16/2024 Musculoskeletal problem 04/16/2024 Viral infection, unspecified 03/18/2024 Erythematous condition, unspecified 03/07/2024 Myocardial infarction ([facility]) 03/02/2024 Presence of stent in coronary artery 03/02/2024 Pulmonary emboli ([facility]) 03/02/2024 Spondylosis of lumbar spine 03/02/2024 Spinal stenosis of lumbar region 03/02/2024 Breast cancer screening by mammogram 03/02/2024 Traumatic skin ulcer, limited to breakdown of skin ([facility]) 01/10/2024 Ulcer of left great toe due to diabetes mellitus ([facility]) 01/10/2024 Acute lower GI bleeding 01/09/2024 Upper GI bleed 01/09/2024 Transient alteration of awareness 01/09/2024 Acute lower gastrointestinal hemorrhage 01/09/2024 Lower GI bleed 01/09/2024 Vomiting 01/06/2024 Chronic coughing 08/13/2023 Allergic rhinitis 08/13/2023 COPD with acute exacerbation ([facility]) 07/12/2023 Elevated hemoglobin A1c 06/10/2023 Generalized abdominal pain 06/10/2023 Heart failure ([facility]) 04/12/2023 Anemia 01/28/2023 Acute congestive heart failure, unspecified heart failure type ([facility]) 12/13/2022 Spleen hematoma 12/13/2022 Hypertensive emergency 11/09/2022 Hernia of abdominal wall 10/29/2022 Chest congestion 09/21/2022 Laceration of spleen 09/02/2022 Pulmonary HTN ([facility]) 09/02/2022 Spleen injury 09/02/2022 Chronic obstructive pulmonary disease with acute exacerbation ([facility]) 08/13/2022 Hypoxia 08/07/2022 Acute bilateral low back pain with bilateral sciatica 07/10/2022 Hyperglycemia 07/10/2022 PRES (posterior reversible encephalopathy syndrome) 08/25/2021 Diarrhea 07/04/2021 Chronic diastolic congestive heart failure (HCC) 07/04/2021 Malnutrition 06/22/2021 Right sided abdominal pain 06/22/2021 Mass of pancreas 06/22/2021 Nausea 06/22/2021 Sleeping difficulty 06/22/2021 Insomnia 06/22/2021 Weakness generalized 05/12/2021 Hypovitaminosis D 05/04/2021 Moderate malnutrition 05/02/2021 Pneumonia due to COVID-19 virus -- Not Vaccinated 05/01/2021 Respiratory distress 05/01/2021 Abdominal aortic aneurysm without rupture 04/18/2021 Abdominal aortic aneurysm (AAA) without rupture 04/18/2021 Muscle spasm 04/06/2021 Right hip pain 04/06/2021 Urinary incontinence 04/06/2021 Chronic pain of right knee 03/23/2021 Chronic right hip pain 03/23/2021 Sacral pain 03/23/2021 Lumbar back pain with radiculopathy affecting right lower extremity 03/23/2021 Chronic left shoulder pain 03/23/2021 Leg edema 03/23/2021 Hyperlipidemia 03/23/2021 Depression 03/23/2021 Anxiety 03/23/2021 Acute on chronic diastolic heart failure (HCC) 03/18/2021 Cellulitis of left lower extremity 02/21/2021 S/P cardiac cath 03/18/2020 S/P angioplasty with stent 03/18/2020 Acute coronary syndrome (HCC) 03/17/2020 E. coli UTI 07/20/2019 AMS (altered mental status) 07/18/2019 Pneumonia due to infectious organism 04/23/2019 COPD (chronic obstructive pulmonary disease) ([facility]) Diabetes mellitus ([facility]) Hypertension Community acquired bacterial pneumonia 04/21/2019 COPD exacerbation ([facility]) 06/06/2018 COPD with exacerbation ([facility]) 06/05/2018 Hx of blood clots CAD (coronary artery disease) Severe obesity ([facility]) 11/05/2017 Laceration of nose 10/22/2017 Postoperative state 06/27/2017 Tobacco abuse counseling 05/27/2014 Tobacco abuse disorder 05/27/2014 Pain in lower limb 05/27/2014 Dizziness 05/27/2014 Intolerance of drug 05/27/2014 Atherosclerosis of both carotid arteries 05/27/2014 Hypothyroidism 05/27/2014 Abnormal nuclear stress test 01/22/2013 Smoking greater than 40 pack years 01/22/2013 Claudication in peripheral vascular disease 11/06/2012 Stable angina 11/06/2012 PLAN: Podiatry involved Critical Care Time: 0 Antibiotic [facility] Advanced Care Planning documentation: [x] I have confirmed that the patient's Advance Care Plan is present, Code Status is documented, orsurrogate decision maker is listed in the patient's medical record [If yes , STOP HERE] [] The patient's Advance Care Plan is NOT present because: [] I confirmed today that the patient does not wish or was not able to name a surrogate decision maker or provide and advance care plan. [] Hospice care is currently being provided or has been provided within the calendar year. [] I did NOT confirm today the presence of an Advance Care Plan or surrogate decision maker documented within the patient's medical record. [DOES NOT SATISFY [facility] PERFORMANCE] Gordo De Santiago MD , M.D. * Quirino Newman DPM - 08/07/2024 11:21 PM EDT Spoke with RABBET OPERATOR via perfect serve in regards to vascular results. Moderate occlusion of proximal inflow noted bilateral, namely previous fempop bypass left lower. Patient will require vascular consultation and likely intervention in order to faciliate wound healing. Continue with current betadine dressings. * Ly Constantino RN - 08/07/2024 7:15 PM EDT Ladle Operator at bedside to complete evening assessment. Upon entry to room, pt in bed, respirations unlabored while on 2 L NC. Vitals obtained and assessment completed, see flow sheet for details. Pt denies needs from chief writer at this time. Call light in reach. Care is ongoing. * Erika Vivar PTA - 08/07/2024 1:57 PM EDT Physical Therapy Facility/Department: [facility] Daily Treatment Note NAME: Jonatan Olivarez : 1960 Date of Service: 08/07/2024 Discharge Recommendations: Continue to assess pending progress, Subacute/Penitentiary Facility, Home with Home health PT Patient Diagnosis(es): The primary encounter diagnosis was Claudication in peripheral vascular disease. Diagnoses of PAD (peripheral artery disease), Ulcer of both feet with fat layer exposed (HCC), Oxygen dependent - 2L per baseline, Cellulitis of lower extremity, unspecified laterality, and Fall,subsequent encounter were also pertinent to this visit. Assessment Assessment: Bed mobility: Mod I. Declined transfer and ambulation d/t L heel pain. Supine and seated exercises B Le x10 with frequent RB d/t pain and fatigue Activity Tolerance: Patient tolerated treatment well Equipment Needed: No Plan Physical Therapy Plan General Plan: 2 times a day 7 days a week Specific Instructions for Next Treatment: 1x daily weekends and holidays. Current Treatment Recommendations: Strengthening;Balance training;ROM;Functional mobility training;Transfer training;ADL/Self-care training;IADL training;Endurance training;Pain management;Manual;Neuromuscular re- education;Stair training;Gait training;Home exercise program;Safety education & training;Patient/Caregiver education & training;Modalities;Therapeutic activities Restrictions Restrictions/Precautions Restrictions/Precautions: General Precautions, Contact Precautions, Fall Risk Activity Level: Up with Assist Required Braces or Orthoses?: No Subjective Subjective Subjective: Pt. in bed upon arrival, agreeable to attempt therapy but declined ambulation d/t L heel pain Pain: L heel pain Objective Bed Mobility Training Bed Mobility Training: Yes Overall Level of Assistance: Stand by assistance;Supervision;Modified independent Interventions: Verbal cues Rolling: Modified independent Supine to Sit: Stand by assistance;Supervision Sit to Supine: Stand by assistance;Supervision Scooting: Stand by assistance;Supervision Transfer Training Transfer Training: No Gait Gait Training: No PT Exercises Exercise Treatment: Supine and seated exercises B Le x10 Safety Devices Type of Devices: All fall risk precautions in place;Left in bed;Bed alarm in place;Nurse notified;Call light within reach Restraints Restraints Initially in Place: No Goals Short Term Goals Time Frame for Short Term Goals: 10 days Short Term Goal 1: Patient will ambulate 50' with FWW, supervision, without LOB Short Term Goal 2: Patient will perform bed mobility tasks and transfers with SBA Short Term Goal 3: Patient will tolerate 20-30 minutes of therex/act to improve endurance for ADLs. Patient Goals Patient Goals : Decrease pain Education Patient Education Education Given To: Patient Education Provided: Role of Therapy;Plan of Care Education Method: Verbal Barriers to Learning: None Education Outcome: Verbalized understanding Therapy Time Individual Concurrent Group Co-treatment Time In 1115 Time Out 1142 Minutes 27 Erika Vivar PTA Cosigned by Susanne Luciano PT at 08/07/2024 2:39 PM EDT * Leah Pruitt RN - 08/07/2024 1:32 PM EDT Medications due plus a pain pill at bedside and chief writer obtaining vital signs, hypotensive (see chart) but asymptomatic, reported to Oliva LOVING. She orders to still give pain medication. * Leyla Holguin - 08/07/2024 11:31 AM EDT Comprehensive Nutrition Assessment Type and Reason for Visit: Initial Nutrition Recommendations/Plan: Consume 100% of ONS. Meet >75% of estimated needs. Consume >50% of meals. Continue to encourage proper portions and ensure when appetite is low. Malnutrition Assessment: Malnutrition Status: Severe malnutrition (08/07/24 1131) Context: Acute Illness Findings of the 6 clinical characteristics of malnutrition: Energy Intake: 50% or less of estimated energy requirements for 5 or more days Weight Loss: Greater than 7.5% over 3 months (06/13 137# per medical note) Body Fat Loss: Mild body fat loss Orbital, Triceps Muscle Mass Loss: Mild muscle mass loss Temples (temporalis), Hand (interosseous) Fluid Accumulation: No fluid accumulation Memorial Marker Designer Strength: Not Performed Nutrition Assessment: Severe malnutrition r/t inadequate protein-energy intake aeb pt reporting having poor appetite prior to admission due to being tired and simply not being hungry. Meals are round 50% consumed having asignificant weight loss of 10.9% in three months. Pt expressed getting meals on wheels starting once discharged getting 2x meals/week. On days pt does not have an appetite she consumes Ensure. Pt conc erns and questions were answered in regard to healing from her fall went over proper portion sizing, high iron foods, and vitamin C intake to help with iron absorption. Labs reviewed with elevated glucose (124) and calcium (7.5) Nutrition Related Findings: active bowel sounds and +1 BLE non-pitting edema Wound Type: None Current Nutrition Intake & Therapies: Average Meal Intake: 26-50% Average Supplements Intake: 76-100% ADULT ORAL NUTRITION SUPPLEMENT; Breakfast, Lunch, Dinner; Standard High Calorie/High Protein Oral Supplement ADULT DIET; Regular Anthropometric Measures: Height: 154.9 cm (5' 0.98 ) [place] Body Weight (IBW): 105 lbs (48 kg) Admission Body Weight: 56.7 kg (125 lb) Current Body Weight: 55.7 kg (122 lb 12.7 oz), 116.9 % IBW. Weight Source: Bed scale Current BMI (kg/m2): 23.2 Usual Body Weight: 62.1 kg (137 lb) (3months ago) % Weight Change (Calculated): -10.4 Weight Adjustment For: No Adjustment BMI Categories: Normal Weight (BMI 18.5-24.9) Hematology: Recent Labs 08/06/24 1515 08/07/24 0603 WBC 7.9 7.0 HGB 10.3* 10.0* HCT 32.9* 32.5* Chemistry: Recent Labs 08/06/24 1515 08/07/24 0603 NA 134* 138 K 3.6* 3.7 CL 102 106 CO2 23 22 GLUCOSE 141* 124* BUN 16 14 CREATININE 1.0* 0.8 CALCIUM 8.2* 7.5* Recent Labs 08/06/24 1515 08/06/24 1650 LABA1C -- 7.2* AST 21 -- ALT 11 -- ALKPHOS 95 -- BILITOT <0.2 -- Estimated Daily Nutrient Needs: Energy Requirements Based On: Kcal/kg Weight Used for Energy Requirements: Current Energy (kcal/day): 9226-8460 (27-30kcal/d) Weight Used for Protein Requirements: [place] Protein (g/day): 58-67 (1.2-1.4g/d) Method Used for Fluid Requirements: 1 ml/kcal Fluid (ml/day): 6190-3235 Nutrition Diagnosis: Severe malnutrition related to inadequate protein-energy intake, decreased appetite as evidenced byintake 26-50%, weight loss Nutrition Interventions: Food and/or Nutrient Delivery: Continue Current Diet, Continue Oral Nutrition Supplement Nutrition Education/Counseling: Education/Counseling completed Coordination of Nutrition Care: Continue to monitor while inpatient Plan of Care discussed with: pt Goals: Goals: PO intake 50% or greater, Meet at least 75% of estimated needs Type of Goal: New goal Previous Goal Met: New Goal Nutrition Monitoring and Evaluation: Behavioral-Environmental Outcomes: None Identified Food/Nutrient Intake Outcomes: Food and Nutrient Intake, Supplement Intake Physical Signs/Symptoms Outcomes: Biochemical Data, Weight, Nutrition Focused Physical Findings, Meal Time Behavior Discharge Planning: Continue Oral Nutrition Supplement, Continue current diet Leyla Holguin Contact: [id number] Cosigned [address] M[address], LD at 08/07/2024 11:53 AM EDT * Susanne Luciano, PT - 08/07/2024 9:04 AM EDT Physical Therapy Facility/Department: [facility] Physical Therapy Initial Assessment Name: Jonatan Olivarez : 1960 Date of Service: 08/07/2024 Discharge Recommendations: Continue to assess pending progress, Subacute/Penitentiary Facility, Home with Home health PT PT Equipment Recommendations Equipment Needed: No Patient Diagnosis(es): The primary encounter diagnosis was Claudication in peripheral vascular disease. Diagnoses of PAD (peripheral artery disease) and Ulcer of both feet with fat layer exposed (HCC) were also pertinent to this visit. Past Medical History: has a past medical history of Asthma, Back problem, CAD (coronary artery disease), COPD (chronic obstructive pulmonary disease) (HCC), Depression, Diabetes mellitus (HCC), Edema, H/O cardiac catheterization, H/O echocardiogram, Hernia of abdominal wall, History of cardiac cath, History of cardiac cath, History of cardiovascular stress test, History of echocardiogram, Historyof stress test, Hx of blood clots, Hypertension, Hypothyroidism, Leg pain, bilateral, and Wears partial dentures. Past Surgical History: has a past surgical history that includes Cholecystectomy; Hysterectomy; femoral bypass; Cardiac surgery; Cardiac catheterization; vascular surgery; Aorta surgery (05/2016); and Cardiac catheterization (Left, 02/25/2018). Assessment Body Structures, Functions, Activity Limitations Requiring Skilled Therapeutic Intervention: Decreased functional mobility ;Decreased ADL status;Decreased ROM;Decreased strength;Decreased endurance;Decreased balance;Decreased high- level IADLs;Decreased posture;Increased pain Assessment: The patient is a 63 y.o. female who was admitted due to cellulitis. On evaluation she demonstrates LE weakness, decreased activity endurance, and impaired balance. She reports severe painin her feet and lower legs. She would benefit from skilled PT to address her deficits to improve functional mobility. Treatment Diagnosis: Generalized weakness, impaired balance Therapy Prognosis: Fair Decision Making: Medium Complexity Requires PT Follow-Up: Yes Activity Tolerance Activity Tolerance: Patient tolerated evaluation without incident Plan Physical Therapy Plan General Plan: 2 times a day 7 days a week Current Treatment Recommendations: Strengthening, Balance training, ROM, Functional mobility training, Transfer training, ADL/Self-care training, IADL training, Endurance training, Pain management, Manual, Neuromuscular re- education, Stair training, Gait training, Home exercise program, Safety educa tion & training, Patient/Caregiver education & training, Modalities, Therapeutic activities Safety Devices Type of Devices: All fall risk precautions in place Restraints Restraints Initially in Place: No Restrictions Restrictions/Precautions Restrictions/Precautions: General Precautions, Contact Precautions, Fall Risk Activity Level: Up with Assist Required Braces or Orthoses?: No Subjective General Chart Reviewed: Yes Patient assessed for rehabilitation services?: Yes Family/Caregiver Present: No Referring Practitioner: Oliva Dunlap APRN - CNP Referral Date : 08/06/24 Diagnosis: Cellulitis, L03.90 Follows Commands: Within Functional Limits Subjective Subjective: Patient reports bilateral foot pain. Social/Functional History Social/Functional History Lives With: Son Type of Home: Apartment Home Layout: One level Home Access: Stairs to enter without rails Entrance Stairs - Number of Steps: 1 Bathroom Shower/Tub: Tub/Shower unit Bathroom Toilet: Handicap height Home Equipment: Walker - 4-Wheeled, Oxygen Has the patient had two or more falls in the past year or any fall with injury in the past year?: Yes Prior Level of Assist for ADLs: Independent Prior Level of Assist for Homemaking: Needs assistance Prior Level of Assist for Ambulation: Independent household ambulator, with or without device Prior Level of Assist for Transfers: Independent Additional Comments: son completes IADL and occasionally assist with LB self care. Vision/Hearing Vision Vision: Within Functional Limits Hearing Hearing: Within functional limits Cognition Orientation Overall Orientation Status: Within Functional Limits Cognition Overall Cognitive Status: WFL Objective Temp: 97.9 F (36.6 C) Pulse: 74 Heart Rate Source: Monitor;Apical Respirations: 16 SpO2: 92 % O2 Device: Nasal cannula BP: (!) 158/60 MAP (Calculated): 93 BP Location: Right upper arm BP Method: Automatic Patient Position: Semi fowlers Observation/Palpation Posture: Fair AROM RLE (degrees) RLE AROM: WFL AROM LLE (degrees) LLE AROM : WFL Strength RLE Comment: Grossly 4/5 Strength LLE Comment: Grossly 4/5 Bed mobility Rolling to Left: Modified independent Rolling to Right: Modified independent Supine to Sit: Stand by assistance Sit to Supine: Stand by assistance Scooting: Stand by assistance Transfers Sit to Stand: Contact guard assistance Stand to Sit: Contact guard assistance Ambulation WB Status: WBAT Ambulation Surface: Level tile Device: Rolling Walker Assistance: Contact guard assistance Gait Deviations: Slow Valeria;Increased SANDRA;Decreased step length Distance: 5' More Ambulation?: No Stairs/Curb Stairs?: No Balance Posture: Poor Sitting - Static: Good Sitting - Dynamic: Good Standing - Static: Fair Standing - Dynamic: Fair;- AM-PAC - Mobility AM-PAC Mobility without Stair Climbing Inpatient How much difficulty turning over in bed?: A Little How much difficulty sitting down on / standing up from a chair with arms?: A Little How much difficulty moving from lying on back to sitting on side of bed?: A Little How much help from another person moving to and from a bed to a chair?: A Little How much help from another person needed to walk in hospital room?: A Little AM-PAC Inpatient Mobility without Stair Climbing Raw Score : 15 AM-PAC Inpatient without Stair Climbing T-Scale Score : 43.03 Mobility Inpatient CMS 0-100% Score: 47.43 Mobility Inpatient without Stair CMS G-Code Modifier : CK Goals Short Term Goals Time Frame for Short Term Goals: 10 days Short Term Goal 1: Patient will ambulate 50' with FWW, supervision, without LOB Short Term Goal 2: Patient will perform bed mobility tasks and transfers with SBA Short Term Goal 3: Patient will tolerate 20-30 minutes of therex/act to improve endurance for ADLs. Patient Goals Patient Goals : Decrease pain Education Patient Education Education Given To: Patient Education Provided: Role of Therapy;Plan of Care Education Method: Verbal Barriers to Learning: None Education Outcome: Verbalized understanding Therapy Time Individual Concurrent Group Co-treatment Time In 744 Time Out 0800 Minutes 15 Timed Code Treatment Minutes: 15 Minutes Susanne Luciano PT , DPT, OCS, Cert. DN Cosigned by Oliva Dunlap APRN - CNP at 08/07/2024 3:57 PM EDT * Leah Pruitt RN - 08/07/2024 8:46 AM EDT Painted bilateral feet and toes with betadine as ordered. Pt requested to have the left leg wrapped, applied nonadherent dressings and gauze wrap. * Oliva Dunlap APRN - TRUST ADMINISTRATOR - 08/07/2024 8:32 AM EDT Images from the original note were not included. Progress Note SUBJECTIVE: Patient seen for f/u of Cellulitis of lower extremity, unspecified laterality. She sitting up in chair no distress. No complaints at this time. Slept well ROS: Constitutional: negative for fevers, and negative for chills. Respiratory: negative for shortness of breath, negative for cough, and negative for wheezing Cardiovascular: negative for chest pain, and negative for palpitations Gastrointestinal: negative for abdominal pain, negative for nausea,negative for vomiting, negative for diarrhea, and negative for constipation All other systems were reviewed with the patient and are negative unless otherwise stated in HPI OBJECTIVE: Vitals: Vitals: 08/07/24 1047 BP: Pulse: Resp: Temp: SpO2: 90% Weight - Scale: 55.7 kg (122 lb 12.8 oz) Height: 154.9 cm (5' 0.98 ) Weight Wt Readings from Last 3 Encounters: 08/07/24 55.7 kg (122 lb 12.8 oz) 08/06/24 63.5 kg (140 lb) 06/24/24 56.2 kg (124 lb) Body mass index is 23.22 kg/m . 24HR INTAKE/OUTPUT: Intake/Output Summary (Last 24 hours) at 08/07/2024 1147 Last data filed at 08/07/2024 0553 Gross per 24 hour Intake 540 ml Output 1250 ml Net -710 ml Exam: GEN: Awake, alert and oriented x3. EYES: EOMI, pupils equal NECK: Supple. No lymphadenopathy. No carotid bruit CVS: regular rate and rhythm, no audible murmur PULM: CTA, no wheezes, rales or rhonchi, no acute respiratory distress ABD: Bowels sounds normal. Abdomen is soft. No distention. no tenderness to palpation. EXT: trace edema bilaterally . No calf tenderness. NEURO: Moves all extremities. Motor and sensory are grossly intact SKIN: No rashes. No skin lesions. See below [id number] Foot/Toes 08/06/2024-Admission--Right Foot/Toes Diagnostic Data: Complete Blood Count: Recent Labs 08/06/24 1515 08/07/24 0603 WBC 7.9 7.0 RBC 3.87* 3.78* HGB 10.3* 10.0* HCT 32.9* 32.5* MCV 85.0 86.0 MCH 26.6 26.5 MCHC 31.3 30.8 RDW 19.4* 19.8* PLT 296 283 MPV 9.2 9.1 Last 3 Blood Glucose: Recent Labs 08/06/24 1515 08/07/24 0603 GLUCOSE 141* 124* Comprehensive Metabolic Profile: Recent Labs 08/06/24 1515 08/07/24 0603 NA 134* 138 K 3.6* 3.7 CL 102 106 CO2 23 22 BUN 16 14 CREATININE 1.0* 0.8 GLUCOSE 141* 124* CALCIUM 8.2* 7.5* BILITOT <0.2 -- ALKPHOS 95 -- AST 21 -- ALT 11 -- Urinalysis: Lab Results Component Value Date/Time NITRU NEGATIVE 01/02/2024 05:05 PM COLORU Yellow 01/02/2024 05:05 PM PHUR 6.0 01/02/2024 05:05 PM PHUR 6.5 05/12/2021 09:39 PM WBCUA 5 TO 10 01/02/2024 05:05 PM RBCUA 0 TO 2 01/02/2024 05:05 PM MUCUS NOT REPORTED 05/12/2021 09:39 PM TRICHOMONAS NOT REPORTED 05/12/2021 09:39 PM YEAST 2+ 05/12/2021 09:39 PM BACTERIA 2+ 01/02/2024 05:05 PM LEUKOCYTESUR SMALL 01/02/2024 05:05 PM UROBILINOGEN Normal 01/02/2024 05:05 PM BILIRUBINUR NEGATIVE 01/02/2024 05:05 PM GLUCOSEU NEGATIVE 01/02/2024 05:05 PM KETUA NEGATIVE 01/02/2024 05:05 PM AMORPHOUS NOT REPORTED 05/12/2021 09:39 PM HgBA1c: Lab Results Component Value Date/Time LABA1C 7.2 08/06/2024 04:50 PM Lactic Acid: Lab Results Component Value Date/Time LACTA 0.7 04/23/2021 01:40 PM LACTA 0.5 02/21/2021 06:55 PM LACTA 1.0 01/17/2021 01:30 AM Troponin: No results for input(s): TROPONINI in the last 72 hours. CRP: No results for input(s): CRP in the last 72 hours. Radiology/Imaging: Vascular duplex lower extremity arteries bilateral CT FOOT RIGHT W CONTRAST Final Result CT right tibia/fibula and foot: 1. No acute fracture or CT evidence of osteomyelitis. 2. Extensive subcutaneous edema throughout the lower extremity which may represent cellulitis. No drainable fluid collection or soft tissue gas identified. 3. Additional findings, as above. CT left tibia/fibula and foot: 1. Extensive lower extremity subcutaneous edema which may reflect cellulitis. Focal area of non enhancement within the plantar heel soft tissues possibly representing tissue necrosis. No drainable fluid collection identified in this region. MR follow-up may be useful as clinically warranted. 2. Focally increased superficial soft tissue edema within the lateral dorsal forefoot possibly representing phlegmon or small hematoma. No drainable fluid collection identified in this region at this time. 3. Small skin ulceration overlying the lateral malleolus with subjacent focus of subcutaneous air. No gross evidence of necrotizing fasciitis. 4. No acute fracture or CT evidence of osteomyelitis. CT TIBIA FIBULA RIGHT W CONTRAST Final Result CT right tibia/fibula and foot: 1. No acute fracture or CT evidence of osteomyelitis. 2. Extensive subcutaneous edema throughout the lower extremity which may represent cellulitis. No drainable fluid collection or soft tissue gas identified. 3. Additional findings, as above. CT left tibia/fibula and foot: 1. Extensive lower extremity subcutaneous edema which may reflect cellulitis. Focal area of non enhancement within the plantar heel soft tissues possibly representing tissue necrosis. No drainable fluid collection identified in this region. MR follow-up may be useful as clinically warranted. 2. Focally increased superficial soft tissue edema within the lateral dorsal forefoot possibly representing phlegmon or small hematoma. No drainable fluid collection identified in this region at this time. 3. Small skin ulceration overlying the lateral malleolus with subjacent focus of subcutaneous air. No gross evidence of necrotizing fasciitis. 4. No acute fracture or CT evidence of osteomyelitis. CT FOOT LEFT W CONTRAST Final Result CT right tibia/fibula and foot: 1. No acute fracture or CT evidence of osteomyelitis. 2. Extensive subcutaneous edema throughout the lower extremity which may represent cellulitis. No drainable fluid collection or soft tissue gas identified. 3. Additional findings, as above. CT left tibia/fibula and foot: 1. Extensive lower extremity subcutaneous edema which may reflect cellulitis. Focal area of non enhancement within the plantar heel soft tissues possibly representing tissue necrosis. No drainable fluid collection identified in this region. MR follow-up may be useful as clinically warranted. 2. Focally increased superficial soft tissue edema within the lateral dorsal forefoot possibly representing phlegmon or small hematoma. No drainable fluid collection identified in this region at this time. 3. Small skin ulceration overlying the lateral malleolus with subjacent focus of subcutaneous air. No gross evidence of necrotizing fasciitis. 4. No acute fracture or CT evidence of osteomyelitis. CT TIBIA FIBULA LEFT W CONTRAST Final Result CT right tibia/fibula and foot: 1. No acute fracture or CT evidence of osteomyelitis. 2. Extensive subcutaneous edema throughout the lower extremity which may represent cellulitis. No drainable fluid collection or soft tissue gas identified. 3. Additional findings, as above. CT left tibia/fibula and foot: 1. Extensive lower extremity subcutaneous edema which may reflect cellulitis. Focal area of non enhancement within the plantar heel soft tissues possibly representing tissue necrosis. No drainable fluid collection identified in this region. MR follow-up may be useful as clinically warranted. 2. Focally increased superficial soft tissue edema within the lateral dorsal forefoot possibly representing phlegmon or small hematoma. No drainable fluid collection identified in this region at this time. 3. Small skin ulceration overlying the lateral malleolus with subjacent focus of subcutaneous air. No gross evidence of necrotizing fasciitis. 4. No acute fracture or CT evidence of osteomyelitis. CT CHEST ABDOMEN PELVIS W CONTRAST Additional Contrast? None Final Result 1. Fem-fem bypass graft appears discontiguous and occluded. Bilateral superficial femoral artery occlusion or near occlusion is noted. Age is indeterminate. 2. Cardiomegaly and calcific coronary artery disease. 3. Prominent main pulmonary artery measures over 4 cm suggestive of possible pulmonary hypertension. 4. Ventral hernia is wide mouth and contains loops of small and large bowel without evidence of obstruction. 5. Moderately severe right renal atrophy. 6. Increased stool in the colon. 7. A few air-fluid levels are noted in the small bowel. 8. 7 mm calcification right lobe of the thyroid. Recommend follow-up nonemergent thyroid ultrasound. 9. 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 10. Aortic graft appears opacified. 11. Compression fracture L2, age indeterminate. 12. Large posterior disc marginal osteophyte causing moderately severe spinal stenosis centrally. 13. Grade 1 spondylolisthesis L2-3 and bilateral pars defects at L2 and L3. 14. Multilevel vacuum disc phenomena. CT HEAD WO CONTRAST Final Result No acute intracranial abnormality or calvarial fracture. ASSESSMENT / PLAN: MEDICAL DECISION MAKING: Primary Problem(s): Cellulitis of lower extremity, unspecified laterality Differential diagnoses: cellulitis, abscess, osteomyelitis Condition is a chronic illness with exacerbation, progression or side effects of treatment Condition is stable Treatment plan: Appreciate Dr. Newman See wound care orders Arterial studies PT/OT Up with assistance SS for DC planning Wound CX-mixed Monitor labs and replace electrolytes BC x 2-no growth Procalcitonin Imaging: CT bilateral Tib/Fib-no osteo CT Bilateral Feet-no osteo Medications: IV Zosyn Stop IV Vanc Medication Monitoring / High Risk Medications: none Failure to Thrive/Weight Loss/ Frequent Falls Condition is stable Treatment plan: PT/OT Appreciate [employer] Imaging: CT Head-negative CT Chest/Abd/Pelvis-see above Medications: IVF DM Condition is stable Treatment plan: A1C-7.2 current 6.8 in 2023 Appreciate [employer] Imaging: no further imaging studies ordered today Medications: Start Metformin Nutrition status: severe malnutrition [employer] consult initiated I/O Daily weight Monitor Daily intake Nutritional Supplements as tolerated MALNUTRITION ASSESSMENT AND PLAN The following was documented by the Dietitian: Malnutrition Assessment Context of Malnutrition: Acute Illness (08/07/241130) Acute Illness - Energy Intake : 50% or less of estimated energy requirements for 5 or more days (08/07/241130) Acute Illness - Weight Loss : Greater than 7.5% over 3 months (06/13 137# per medical note) (08/07/241130) Acute Illness - Body Fat Loss: Mild body fat loss (08/07/241130) Acute Illness - Body Fat Loss Locations: Orbital;Triceps (08/07/241130) Acute Illness - Muscle Mass Loss: Mild muscle mass loss (08/07/241130) Acute Illness - Muscle Mass Loss Location: Temples (temporalis);Hand (interosseous) (08/07/241130) Acute Illness - Fluid Accumulation : No fluid accumulation (08/07/241130) Acute Illness - Memorial Marker Designer Strength: Not Performed (08/07/241130) Acute Illness - Malnutrition Score: 16 (08/07/241130) Malnutrition Status: Severe malnutrition (08/07/241130) I agree with the dietitian's malnutrition assessment. Medical Nutrition Therapy: continue current nutrition therapy and oral supplements [facility] Prophylaxis: DVT: Eliquis Stress Ulcer: PPI Disposition: Shared decision making: All test results, treatment options and disposition options were discussed with the patient today Social determinants of health that may impact management: none Code status: Full Code Disposition: Discharge plan is pending [facility] [facility] Advanced Care Planning documentation: [x] I have confirmed that the patient's Advance Care Plan is present, Code Status is documented, orsurrogate decision maker is listed in the patient's medical record [If yes , STOP HERE] [] The patient's Advance Care Plan is NOT present because: [] I confirmed today that the patient does not wish or was not able to name a surrogate decision maker or provide and advance care plan. [] Hospice care is currently being provided or has been provided within the calendar year. [] I did NOT confirm today the presence of an Advance Care Plan or surrogate decision maker documented within the patient's medical record. [DOES NOT SATISFY [facility] PERFORMANCE] HILDA Cortes CNP , [facility] Hospitalist Medicine 08/07/2024, 11:47 AM Cosigned by Osmar Rodriguez MD at 08/07/2024 8:32 PM EDT Associated attestation - Osmar Rodriguez MD - 08/07/2024 8:32 PM EDT Images from the original note were not included. [address], [address] Attestation Patient: Jonatan Olivarez Date of Admission: 08/06/2024 1:44 PM Hospital Day # 1 Date of Evaluation: 08/07/2024 I personally evaluated and examined the patient [id number] in conjunction with the PA/RABBET OPERATOR and agree with the management and dispostition of the patient. Please see the PA/RABBET OPERATOR's note for full details.My sims findings are: SUBJECTIVE: Patient seen for follow up of Cellulitis of lower extremity, unspecified laterality. She is feels that she is doing much better than prior. She does have ongoing worsening pain in the legs. She is thinking about going home and not to any SNF. I had discussed my concerns about this in the past with her given prior response to treatments at home. RBA was discussed. OBJECTIVE: Vitals: Temp: 97.6 F (36.4 C) BP: (!) 120/54 Respirations: 18 Pulse: 74 SpO2: (!) 84 % Weight Wt Readings from Last 3 Encounters: 08/07/24 55.7 kg (122 lb 12.8 oz) 08/06/24 63.5 kg (140 lb) 06/24/24 56.2 kg (124 lb) Body mass index is 23.22 kg/m . 24HR INTAKE/OUTPUT: Intake/Output Summary (Last 24 hours) at 08/07/20242028 Last data filed at 08/07/2024 1349 Gross per 24 hour Intake 420 ml Output 950 ml Net -530 ml Exam: GEN: Awake, alert and oriented x3. EYES: EOMI, pupils equal NECK: Supple. No lymphadenopathy. No carotid bruit CVS: regular rate and rhythm, systolic murmur PULM: diminished but clear without wheezing, rales or rhonchi, no acute respiratory distress ABD: Bowels sounds normal. Abdomen is soft. No distention. no tenderness to palpation. EXT: 1+ edema bilaterally . No calf tenderness. NEURO: Moves all extremities. Motor and sensory are grossly intact SKIN: No rashes. LE wounds noted. DATA: Complete Blood Count: Recent Labs 08/06/24 1515 08/07/24 0603 WBC 7.9 7.0 RBC 3.87* 3.78* HGB 10.3* 10.0* HCT 32.9* 32.5* MCV 85.0 86.0 RDW 19.4* 19.8* PLT 296 283 Recent Labs 08/06/24 1515 08/07/24 0603 NEUTROABS 5.66 5.07 LYMPHOPCT 12* 13* LYMPHSABS 0.94* 0.93* MONOPCT 11 9 BASOPCT 1 1 IMMGRAN 1* 0 CMP: Lab Results Component Value Date GLUCOSE 124 (H) 08/07/2024 BUN 14 08/07/2024 CREATININE 0.8 08/07/2024 NA 138 08/07/2024 K 3.7 08/07/2024 CALCIUM 7.5 (L) 08/07/2024 CL 106 08/07/2024 CO2 22 08/07/2024 BILITOT <0.2 08/06/2024 ALKPHOS 95 08/06/2024 ALT 11 08/06/2024 AST 21 08/06/2024 UA: Lab Results Component Value Date COLORU Yellow 01/02/2024 WBCUA 5 TO 10 01/02/2024 RBCUA 0 TO 2 01/02/2024 LEUKOCYTESUR SMALL (A) 01/02/2024 GLUCOSEU NEGATIVE 01/02/2024 KETUA NEGATIVE 01/02/2024 PROTEINU 2+ (A) 01/02/2024 HGBUR NEGATIVE 01/02/2024 CASTUA NOT REPORTED 05/12/2021 BACTERIA 2+ (A) 01/02/2024 YEAST 2+ (A) 05/12/2021 Lactic Acid: Lab Results Component Value Date/Time LACTA 0.7 04/23/2021 01:40 PM LACTA 0.5 02/21/2021 06:55 PM LACTA 1.0 01/17/2021 01:30 AM High Sensitivity Troponin: No results for input(s): TROPHS in the last 72 hours. Radiology/Imaging: Vascular duplex lower extremity arteries bilateral Final Result CT FOOT RIGHT W CONTRAST Final Result CT right tibia/fibula and foot: 1. No acute fracture or CT evidence of osteomyelitis. 2. Extensive subcutaneous edema throughout the lower extremity which may represent cellulitis. No drainable fluid collection or soft tissue gas identified. 3. Additional findings, as above. CT left tibia/fibula and foot: 1. Extensive lower extremity subcutaneous edema which may reflect cellulitis. Focal area of non enhancement within the plantar heel soft tissues possibly representing tissue necrosis. No drainable fluid collection identified in this region. MR follow-up may be useful as clinically warranted. 2. Focally increased superficial soft tissue edema within the lateral dorsal forefoot possibly representing phlegmon or small hematoma. No drainable fluid collection identified in this region at this time. 3. Small skin ulceration overlying the lateral malleolus with subjacent focus of subcutaneous air. No gross evidence of necrotizing fasciitis. 4. No acute fracture or CT evidence of osteomyelitis. CT TIBIA FIBULA RIGHT W CONTRAST Final Result CT right tibia/fibula and foot: 1. No acute fracture or CT evidence of osteomyelitis. 2. Extensive subcutaneous edema throughout the lower extremity which may represent cellulitis. No drainable fluid collection or soft tissue gas identified. 3. Additional findings, as above. CT left tibia/fibula and foot: 1. Extensive lower extremity subcutaneous edema which may reflect cellulitis. Focal area of non enhancement within the plantar heel soft tissues possibly representing tissue necrosis. No drainable fluid collection identified in this region. MR follow-up may be useful as clinically warranted. 2. Focally increased superficial soft tissue edema within the lateral dorsal forefoot possibly representing phlegmon or small hematoma. No drainable fluid collection identified in this region at this time. 3. Small skin ulceration overlying the lateral malleolus with subjacent focus of subcutaneous air. No gross evidence of necrotizing fasciitis. 4. No acute fracture or CT evidence of osteomyelitis. CT FOOT LEFT W CONTRAST Final Result CT right tibia/fibula and foot: 1. No acute fracture or CT evidence of osteomyelitis. 2. Extensive subcutaneous edema throughout the lower extremity which may represent cellulitis. No drainable fluid collection or soft tissue gas identified. 3. Additional findings, as above. CT left tibia/fibula and foot: 1. Extensive lower extremity subcutaneous edema which may reflect cellulitis. Focal area of non enhancement within the plantar heel soft tissues possibly representing tissue necrosis. No drainable fluid collection identified in this region. MR follow-up may be useful as clinically warranted. 2. Focally increased superficial soft tissue edema within the lateral dorsal forefoot possibly representing phlegmon or small hematoma. No drainable fluid collection identified in this region at this time. 3. Small skin ulceration overlying the lateral malleolus with subjacent focus of subcutaneous air. No gross evidence of necrotizing fasciitis. 4. No acute fracture or CT evidence of osteomyelitis. CT TIBIA FIBULA LEFT W CONTRAST Final Result CT right tibia/fibula and foot: 1. No acute fracture or CT evidence of osteomyelitis. 2. Extensive subcutaneous edema throughout the lower extremity which may represent cellulitis. No drainable fluid collection or soft tissue gas identified. 3. Additional findings, as above. CT left tibia/fibula and foot: 1. Extensive lower extremity subcutaneous edema which may reflect cellulitis. Focal area of non enhancement within the plantar heel soft tissues possibly representing tissue necrosis. No drainable fluid collection identified in this region. MR follow-up may be useful as clinically warranted. 2. Focally increased superficial soft tissue edema within the lateral dorsal forefoot possibly representing phlegmon or small hematoma. No drainable fluid collection identified in this region at this time. 3. Small skin ulceration overlying the lateral malleolus with subjacent focus of subcutaneous air. No gross evidence of necrotizing fasciitis. 4. No acute fracture or CT evidence of osteomyelitis. CT CHEST ABDOMEN PELVIS W CONTRAST Additional Contrast? None Final Result 1. Fem-fem bypass graft appears discontiguous and occluded. Bilateral superficial femoral artery occlusion or near occlusion is noted. Age is indeterminate. 2. Cardiomegaly and calcific coronary artery disease. 3. Prominent main pulmonary artery measures over 4 cm suggestive of possible pulmonary hypertension. 4. Ventral hernia is wide mouth and contains loops of small and large bowel without evidence of obstruction. 5. Moderately severe right renal atrophy. 6. Increased stool in the colon. 7. A few air-fluid levels are noted in the small bowel. 8. 7 mm calcification right lobe of the thyroid. Recommend follow-up nonemergent thyroid ultrasound. 9. 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 10. Aortic graft appears opacified. 11. Compression fracture L2, age indeterminate. 12. Large posterior disc marginal osteophyte causing moderately severe spinal stenosis centrally. 13. Grade 1 spondylolisthesis L2-3 and bilateral pars defects at L2 and L3. 14. Multilevel vacuum disc phenomena. CT HEAD WO CONTRAST Final Result No acute intracranial abnormality or calvarial fracture. ASSESSMENT: Principal Problem: Cellulitis of lower extremity, unspecified laterality Active Problems: Diabetic polyneuropathy associated with type 2 diabetes mellitus (HCC) Primary hypertension Severe malnutrition Tobacco abuse disorder CAD (coronary artery disease) COPD (chronic obstructive pulmonary disease) (HCC) Chronic right hip pain Weight loss Oxygen dependent - 2L per baseline Resolved Problems: * No resolved hospital problems. * PLAN: I agree with the plan as outlined in the RABBET OPERATOR/PA's note Disposition: Discharge plan is pending Please note that this chart was generated using voice recognition [employer]on dictation software. Although every effort was made to ensure the accuracy of this automated skidder lever operator, some errors in skidder lever operator may have occurred. Osmar Rodriguez MD 08/07/2024 8:29 PM * Mariaelena Marshall, OTR/L - 08/07/2024 8:00 AM EDT Occupational Therapy Facility/Department: [facility] Occupational Therapy Initial Assessment Name: Jonatan Olivarez : 1960 Date of Service: 08/07/2024 Discharge Recommendations: Continue to assess pending progress Patient Diagnosis(es): The primary encounter diagnosis was Claudication in peripheral vascular disease. Diagnoses of PAD (peripheral artery disease) and Ulcer of both feet with fat layer exposed (HCC) were also pertinent to this visit. Past Medical History: has a past medical history of Asthma, Back problem, CAD (coronary artery disease), COPD (chronic obstructive pulmonary disease) (HCC), Depression, Diabetes mellitus (HCC), Edema, H/O cardiac catheterization, H/O echocardiogram, Hernia of abdominal wall, History of cardiac cath, History of cardiac cath, History of cardiovascular stress test, History of echocardiogram, Historyof stress test, Hx of blood clots, Hypertension, Hypothyroidism, Leg pain, bilateral, and Wears partial dentures. Past Surgical History: has a past surgical history that includes Cholecystectomy; Hysterectomy; femoral bypass; Cardiac surgery; Cardiac catheterization; vascular surgery; Aorta surgery (05/2016); and Cardiac catheterization (Left, 02/25/2018). Treatment Diagnosis: weakness Assessment Performance deficits / Impairments: Decreased functional mobility ;Decreased ADL status;Decreased ROM;Decreased strength;Decreased coordination;Decreased endurance;Decreased posture;Decreased balance Assessment: 63 y/o F admitted to [facility] for cellulitis LE. Patient presents with genearlized weakness and deconditioning, requiring increased need for assist during ADL. Patient also with multiple fall history, would benefit from OT to address and education on fall prevention within the home. Treatment Diagnosis: weakness Prognosis: Fair;Good Decision Making: Medium Complexity REQUIRES OT FOLLOW-UP: Yes Plan Occupational Therapy Plan Times Per Day: Once a day Days Per Week: 7 Days Current Treatment Recommendations: Strengthening, Balance training, Functional mobility training, Endurance training, Patient/Caregiver education & training, Safety education & training, Self-Care / ADL, Equipment evaluation, education, & procurement, ROM Restrictions Restrictions/Precautions Restrictions/Precautions: General Precautions, Contact Precautions, Fall Risk Subjective Subjective Subjective: Patient reports pain B feet d/t wounds - RN aware. Patient agreeable to OT evaluation at this time. Social/Functional History Social/Functional History Lives With: Son Type of Home: Apartment Home Layout: One level Home Access: Stairs to enter without rails Entrance Stairs - Number of Steps: 1 Bathroom Shower/Tub: Tub/Shower unit Bathroom Toilet: Handicap height Home Equipment: Walker - 4-Wheeled, Oxygen (2L) Has the patient had two or more falls in the past year or any fall with injury in the past year?: Yes Prior Level of Assist for ADLs: Independent Prior Level of Assist for Homemaking: Needs assistance Prior Level of Assist for Ambulation: Independent household ambulator, with or without device Prior Level of Assist for Transfers: Independent Additional Comments: son completes IADL and occasionally assist with LB self care. Objective Safety Devices Type of Devices: All fall risk precautions in place;Call light within reach;Chair alarm in place;Nurse notified;Left in chair AROM: Generally decreased, functional PROM: Generally decreased, functional Strength: Generally decreased, functional Coordination: Generally decreased, functional Tone: Normal Sensation: Intact ADL Feeding: Independent Grooming: Stand by assistance Grooming Skilled Clinical Factors: seated UE Bathing: Stand by assistance LE Bathing: Minimal assistance UE Dressing: Stand by assistance LE Dressing: Minimal assistance Putting On/Taking Off Footwear: Minimal assistance Toileting: Contact guard assistance Functional Mobility: Contact guard assistance Functional Mobility Skilled Clinical Factors: FWW, forward flexed posture during mobility and transfers Additional Comments: CGA ADL transfers Cognition Overall Cognitive Status: WFL Orientation Overall Orientation Status: Within Functional Limits Education Given To: Patient Education Provided: Role of Therapy;Plan of Care;Transfer Training Education Method: Verbal Barriers to Learning: None Education Outcome: Verbalized understanding;Demonstrated understanding [facility] - ADL AM-[facility] Daily Activity - Inpatient How much help is needed for putting on and taking off regular lower body clothing?: A Little How much help is needed for bathing (which includes washing, rinsing, drying)?: A Little How much help is needed for toileting (which includes using toilet, bedpan, or urinal)?: A Little How much help is needed for putting on and taking off regular upper body clothing?: A Little How much help is needed for taking care of personal grooming?: A Little How much help for eating meals?: None AM-[facility] Inpatient Daily Activity Raw [facility]: [facility] ADL T-Scale Score : 40.22 ADL Inpatient [facility] 0-100% Score: 42.8 ADL Inpatient [facility] G-Code Modifier : CK Goals Short Term Goals Time Frame for Short Term Goals: 21 visits Short Term Goal 1: Patient to be educated on d/c folder, AE/DME and home safety to ensure safe and independent return home. Short Term Goal 2: Patient to engage in 15 minutes of ther ex/ther act to improve strength and activity tolerance for ADL. Short Term Goal 3: Patient to complete ADL routine c mod I c decrease risk for falls to ensure safeand independent return home. Short Term Goal 4: Patient to tolerate 3+ minutes of dynamic standing during functional task of choice to improve balance and safety during ADL and mobility tasks. Therapy Time Individual Concurrent Group Co-treatment Time In 0740 Time Out 0752 Minutes 12 HUNG Patel/Jose A Cosigned by Oliva Dunlap APRN - CNP at 08/07/2024 3:57 PM EDT * Leah Pruitt RN - 08/07/2024 7:30 AM EDT Vitals and assessment completed as charted. Pt in bed, just got done with vascular duplex imaging. Pt c/o pain in the left foot the most. Will paint with betadine this morning per orders. Pt remains on 2L of oxygen via nasal cannula. Denies SOB or other concerns. Fall precautions in place. Therapy at bedside for eval. * Jana Main RPH - 08/07/2024 6:43 AM EDT Images from the original note were not included. [facility] Department of Pharmacy Pharmacy Renal Adjustment Note Jonatan Olivarez is a 63 y.o. female. Pharmacist assessment of renally cleared medications. Recent Labs 08/06/24 1515 CREATININE 1.0* Estimated Creatinine Clearance: 43 mL/min (A) (based on SCr of 1 mg/dL (H)). Height: Ht Readings from Last 1 Encounters: 08/06/24 1.549 m (5' 1 ) Weight: Wt Readings from Last 1 Encounters: 08/07/24 55.7 kg (122 lb 12.8 oz) The following medication(s) have been adjusted based upon renal function: Gabapentin 800mg po TID decreased to gabapentin 300mg po TID for CrCl 30- 49mL/min. Maximum dose 900mg/day Thank you, Jana Main RPH,08/07/2024,6:43 AM * Lauren Gonzalez RN - 08/06/2024 8:36 PM EDT Patient's room picked up and organized. Trash and linen changed. Patient denies any further needs at this time. Call light is within reach, care is ongoing. ' * Lauren Gonzalez RN - 08/06/2024 8:19 PM EDT [employer] to Dr. Rdoriguez for pain medication request. New orders received, see MAR * Lauren Gonzalez RN - 08/06/2024 7:42 PM EDT Ladle Operator at bedside to complete evening assessment. Upon entry to room, pt awake and in bed, respirations normal and unlabored while on 2 L via nasal cannula. Vitals obtained and assessment completed, see flow sheet for details. Pt denies needs from chief writer at this time. Call light in reach. Care is ongoing. * Leah Pruitt RN - 08/06/2024 4:06 PM EDT Patient down to radiology at this time. * Leah Pruitt RN - 08/06/2024 3:[address] Newman consulted, states he wont be able to see patient until Saturday, informed Oliva LOVING. * Darling Welsh RCP - 08/06/2024 3:33 PM EDT RESPIRATORY ASSESSMENT PROTOCOL Patient Name: Jonatan Olivarez Room#: 0326/0326-01 : 1960 Admitting diagnosis: Cellulitis [L03.90] Cellulitis of lower extremity, unspecified laterality [L03.119] Medical History: Past Medical History: Diagnosis Date Asthma Back problem Bulging discs (2 or 3), 1 cracked & 1 blackened discs CAD (coronary artery disease) stents x 3; BMS to LAD 12/2010;SPARKLE to RCA 01/2011, NL LV COPD (chronic obstructive pulmonary disease) (HCC) Depression Diabetes mellitus (HCC) Edema chevy legs feet H/O cardiac catheterization 01/01/2011 H/O echocardiogram 09/03/2019 EF 65% evidence of mild grade I diastolic dysfunction seen Hernia of abdominal wall 2012 History of cardiac cath 03/17/2020 [facility] Michael/Dr. Stephens/Left Radial History of cardiac cath 03/17/2020 severe single vessel disease involving the RCA. Mod 2 vessel disease in the Circumflex and D1 branch fo the LAD Nomrla LVEDP Consults IR cardiology for likely angioplasty and or stent of pts severe stenosis History of cardiovascular stress test 10/15/2012 Abnormal myocardial perfusion study, small to mod perfusion defect of mild intensity in the anterolateral and lateral regions during stress imaging, LV function NL, no wall motion abnormalities, No significant EKG evidence of ischemia during monitoring w/o significant arrhythmias. History of echocardiogram 02/24/2018 EF 60%. Mildly increased LV wall thickness. Evidence of mild diastolic dysfunction seen. History of stress test 04/23/2017 Largerly normal myocardial perfusion imaging with soft tissue artifact, but without signficant evidence of myocardial ischemia or infarction. EF 73%. Hx of blood clots abdomen Hypertension Hypothyroidism Leg pain, bilateral rate 10 Wears partial dentures upper PATIENT ASSESSMENT LABORATORY DATA Hematology: Lab Results Component Value Date/Time WBC 7.9 08/06/2024 03:15 PM RBC 3.87 08/06/2024 03:15 PM RBC 4.28 05/21/2011 08:26 AM HGB 10.3 08/06/2024 03:15 PM HCT 32.9 08/06/2024 03:15 PM PLT 296 08/06/2024 03:15 PM PLT 205 05/21/2011 08:26 AM Chemistry: Lab Results Component Value Date/Time PHART 7.355 12/13/2022 05:39 AM [id number] 46.8 12/13/2022 05:39 AM PO2ART 57.3 12/13/2022 05:39 AM [id number] 88.5 12/13/2022 05:39 AM [id number] 25.5 12/13/2022 05:39 AM PBEA NOT REPORTED 05/03/2021 07:45 AM NBEA 0.4 12/13/2022 05:39 AM VITALS Pulse: 60 Respirations: 20 BP: (!) 128/44 SpO2: 92 % O2 Device: Nasal cannula Temp: 98.3 F (36.8 C) SKIN COLOR [] Normal [] Pale [] Dusky [] Cyanotic RESPIRATORY PATTERN [x] Normal [] Dyspnea [] Devin-Gallardo [] Kussmaul [] Biots AMBULATORY [] Yes [] No [x] With Assistance Patient Acuity 0 1 2 3 4 Score Level of Consciousness (LOC) [x] Alert & Oriented or Pt normal LOC [] Confused;follows directions [] Confused & uncooper-ative [] Obtunded [] Comatose 0 Respiratory Rate (RR) [x] Reg. rate & pattern. 12 - 20 bpm [] Increased RR. Greater than 20 bpm [] SOB w/ exertion or RR greater than 24 bpm [] Access- ory muscle use at rest. Abn. resp. [] SOB at rest. 0 Bilateral Breath Sounds (BBS) [] Clear [] Diminish-ed bases [x] Diminish-ed t/o, or rales [] Sporadic, scattered wheezes or rhonchi [] Persistentwheezes and, or absent BBS 2 Cough [x] Strong, effective, & non-prod. [] Effective & prod. Less than 25 ml (2 TBSP) over past 24 hrs [] Ineffective & non-prod to less than 25 ML over past 24 hrs [] Ineffective and, or greater than 25 ml sputum prod. past 24 hrs. [] Nonspon- taneous; Requires suctioning 0 Pulmonary History (PULM HX) [] No smoking and no chronic pulmonary history [] Former smoker. Quit over 12 mos. ago [] Current smoker or quit w/ in 12 mos [x] Pulm. History and, or 20 pk/yr smoking hx [] Admitted w/ acute pulm. dx and, or has been admitted w/ pulm. dx 2 or more times over past 12 mos 3 Surgical History this Admit (SURG HX) [x] No surgery [] General surgery [] Lower abdominal [] Thoracic or upper abdominal [] Thoracic w/ pulm. disease 0 Chest X-Ray (CXR)/CT Scan [] Clear or not applicable [] Not available [x] Atelectasis or pleural effusions [] Localized infiltrate or pulm. edema [] Con-solidated Infiltrates, bilateral, or in more than 1 lobe 2 TOTAL ACUITY: 7 CARE PLAN If Acuity Level is 2, 3, or 4 in any of the following: [] BILATERAL BREATH SOUNDS (BBS) [x] PULMONARY HISTORY (PULM HX) [] Respiratory Rate (RR) Goal: Improve respiratory functions in patients with airway disease and decrease WOB [x] AEROSOL PROTOCOL Total Acuity: 14-28 [] Secondary Assessment in 24 hrs Total Acuity: 9-13 [] Secondary Assessment in 24 hrs Total Acuity: 4-8 [x] Secondary Assessment in 24 hrs Total Acuity: 0-3 [] Secondary Assessment in 48 hrs HHN AEROSOL THERAPY with [physician-ordered bronchodilator(s)] q 4 & Albuterol PRN q2 hrs. Breath-Actuated Neb if BBS Acuity = 4, and pt. can use MP. Notify physician if condition deteriorates. HHN AEROSOL THERAPY with [physician-ordered bronchodilator(s)] QID and Albuterol PRN q4 hrs. Breath-Actuated Neb if BBS Acuity = 4, and pt. can use MP. Notify physician if condition deteriorates. MDI THERAPY with 2 actuations of [physician-ordered bronchodilator(s)] via spacer TID Albuterol and PRN q4 hrs. If unable to utilize MDI: HHN [physician-ordered bronchodilator(s)] TID and Albuterol PRN q4 hrs. Notify physician if condition deteriorates. MDI THERAPY with [physician-ordered bronchodilator(s)] via spacer TID PRN. If unable to utilize MDI: HHN [physician-ordered bronchodilator(s)] TID PRN. Notify physician if condition deteriorates. If Acuity Level is 2, 3, or 4 in any of the following: [] COUGH [] SURGICAL HISTORY (SURG HX) [x] CHEST XRAY (CXR) Goal: Improvement in sputum mobilization in patients with ineffective airway clearance. Reverse atelectasis. [x] Bronchopulmonary Hygiene Protocol Total Acuity: 14-28 [] Secondary Assessment in 24 hrs Total Acuity: 9-13 [] Secondary Assessment in 24 hrs Total Acuity: 4-8 [x] Secondary Assessment in 24 hrs Total Acuity: 0-3 [] Secondary Assessment in 48 hrs METANEB QID with [physician-ordered bronchodilator(s)] if CXR Acuity = 4; otherwise: PD&P, Oscillatory Therapy, or Vest QID & PRN AND PEP QID & PRN NT Sxn PRN for ineffective cough METANEB QID with [physician-ordered bronchodilator(s)] if CXR Acuity = 4; otherwise: PD&P, Oscillatory Therapy or Vest QID & PRN AND PEP QID & PRN NT Sxn PRN for ineffective cough PD&P, Oscillatory Therapy, or Vest TID & PRN AND PEP TID & PRN Instruct patient to self-perform IS q1hr WA If Acuity Level is 2 or above in the following: [] PULMONARY HISTORY (PULM HX) Goal: Assist patient in quitting smoking to slow or stop the progression of lung disease. [] Smoking Cessation Protocol SMOKING CESSATION EDUCATION provided according to policy RT_201: (gordo with an X) ____Yes ____ No ____ NA Smoking Cessation Booklet given: ____Yes ____No ____Patient Refused * Leah Pruitt RN - 08/06/2024 1:45 PM EDT [facility] as a direct admit from Dr Rodriguez office. Pt alert and oriented x4.Vitals and assessment completed, see chart. Pt states she has lost over 100 lbs in the past couple of months due to low appetite. She also has multiple bruises and skin tears on upper extremities as well as a bruise over left eye. States she falls a lot at home, lives with her son, was just at [facility] for the [facility]. Noticed wounds on both feet 2 weeks ago and started getting concerned. Pthas history of DM. Spo2 was 75% on room air, pt denied feeling SOB, 2L nasal cannula applied, states she is supposed to wear 2L at home as needed, does not check spo2 at home. She is a smoker. Has a pain patch on her left wrist for chronic pain. Lungs sounds have fine crackles throughout. States she has a chronic cough. Explained POC and call light to patient. Fall precautions in place. Call light within reach. [facility] Discharge [facility]* Discharge Instr - Activity* Anushka Mcgill RN - 08/10/2024 3:47 PM EDT As tolerated * Discharge Instr - Diet* Anushka Mcgill RN - 08/10/2024 3:47 PM EDT Good nutrition is important when healing from an illness, injury, or surgery. Follow any nutrition recommendations given to you during your hospital stay. If you were given an oral nutrition supplement while in the hospital, continue to take this supplement at home. You can take it with meals, in-between meals, and/or before bedtime. These supplements can be purchased at most local grocery stores, pharmacies, and chain super-stores. If you have any questions about your diet or nutrition, call the hospital and ask for the dietitian. Regular diet * Attachments The following attachments cannot be sent through Care Everywhere. * Cellulitis ([place]) [facility] course Narrative* Oliva Dunlap APRN - CNP - 08/10/2024 1:57 PM EDT Images from the original note were not included. Discharge Summary Jonatan C Challis : 1960 Admit date: 08/06/2024 Discharge date: 08/10/2024 Admitting Physician: Osmar Rodriguez MD Discharge Diagnoses: Principal Problem: Cellulitis of lower extremity, unspecified laterality Active Problems: Tobacco abuse disorder Diabetic polyneuropathy associated with type 2 diabetes mellitus (HCC) Primary hypertension Severe malnutrition CAD (coronary artery disease) COPD (chronic obstructive pulmonary disease) (HCC) Chronic right hip pain Weight loss Oxygen dependent - 2L per baseline Resolved Problems: * No resolved hospital problems. * Hospital Course: Jonatan Olivarez is a 63 y.o. female admitted with cellulitis lower extremity. She presented as a Direct Admission from PCP office due to frequent falls, cellulitis and concern for osteomyelitis of toe wound. She reported that she lives at home with her son. She reported a 15 lb weight loss in the last 2 weeks and just does not eat and stated just doesn't sound good . She reported that she is a smoke daily and is chronically on 2L of oxygen at home. She reported that a recentfall, she had gotten up out of bed and fell forwards landing with her face on the cement. She reported she was evaluated at that time and was told she was fine and discharged home. Patient does report chronic wounds to feet. She denied fevers or chills. She denied any chest pain or palpitations. She denied SOB but does have a chronic cough. She denied choking or dysphagia. She stated she is compliant with medications. During her admission labs were monitored electrolytes replaced. Podiatry was consulted and patient was evaluated. Radiology studies were conducted as well as arterial studies. Patient does have some occlusion of previous graft sites. We will have her follow-up with Dr. Simmons discharge for vascular evaluation otherwise wounds will not heal. We are doing Betadine to the wounds daily and will continue on discharge. Blood cultures are negative. No osteomyelitis were seen o n any radiology studies. She was continued on IV Zosyn and tolerated well will be transition to Augmentin for 14 days on discharge. Current A1c is 7.2 and was 6.8 in 2023 and I did start the patient on metformin and will continue on discharge. I did place an order for home health as well. Plan willbe to discharge today she will follow-up with primary care, podiatry and vascular. Consultants: Dr. Newman, Podiatry Procedures: none Complications: none Discharge Condition: fair Exam: GEN: Awake, alert and oriented x3. EYES: EOMI, pupils equal NECK: Supple. No lymphadenopathy. No carotid bruit CVS: regular rate and rhythm, no audible murmur PULM: CTA, no wheezes, rales or rhonchi, no acute respiratory distress ABD: Bowels sounds normal. Abdomen is soft. No distention. no tenderness to palpation. EXT: trace edema bilaterally . No calf tenderness. Dressing CDI NEURO: Moves all extremities. Motor and sensory are grossly intact SKIN: No rashes. No skin lesions. See below 08/[id number]/[id number] Foot/Toes 08/06/2024-Admission--Right Foot/Toes Significant Diagnostic Studies: Lab Results Component Value Date WBC 6.6 08/10/2024 HGB 9.3 (L) 08/10/2024 PLT 258 08/10/2024 Lab Results Component Value Date BUN 9 08/10/2024 CREATININE 0.6 08/10/2024 NA 143 08/10/2024 K 3.6 (L) 08/10/2024 CALCIUM 8.2 (L) 08/10/2024 CL 109 (H) 08/10/2024 CO2 26 08/10/2024 LABGLOM >90 08/10/2024 Lab Results Component Value Date WBCUA 5 TO 10 01/02/2024 RBCUA 0 TO 2 01/02/2024 LEUKOCYTESUR SMALL (A) 01/02/2024 GLUCOSEU NEGATIVE 01/02/2024 KETUA NEGATIVE 01/02/2024 PROTEINU 2+ (A) 01/02/2024 HGBUR NEGATIVE 01/02/2024 CASTUA NOT REPORTED 05/12/2021 BACTERIA 2+ (A) 01/02/2024 YEAST 2+ (A) 05/12/2021 Vascular duplex lower extremity arteries bilateral Result Date: 08/07/2024 The right superficial femoral artery is occluded with distal reconstitution of the midportion of the superficial femoral artery and monophasic flow throughout. The left superficial femoral and popliteal arteries are occluded as is the femoral-popliteal bypass graft. Tibial arterial flow reconstitutes via collaterals. CT FOOT LEFT W CONTRAST Result Date: 08/06/2024 EXAMINATION: CT OF THE RIGHT TIBIA AND FIBULA WITH CONTRAST; CT OF THE LEFT FOOT WITH CONTRAST; CT OF THE LEFT TIBIA AND FIBULA WITH CONTRAST; CT OF THE RIGHT FOOT WITH CONTRAST 08/06/2024 4:06 pm TECHNIQUE: CT of the right tibia and fibula was performed with the administration of intravenous contrast. Multiplanar reformatted images are provided for review. Automated exposure control, iterative reconstruction, and/or weight based adjustment of the mA/kV was utilized to reduce the radiation dose to as low as reasonably achievable.; CT of the left foot was performed with the administration of intravenous contrast. Multiplanar reformatted images are provided for review. Automated exposure control, iterative reconstruction, and/or weight based adjustment of the mA/kV was utilized to reduce the radiation dose to as low as reasonably achievable.; CT of the left tibia and fibula was performed with the administration of intravenous contrast. Multiplanar reformatted images are provided for review. Automated exposure control, iterative reconstruction, and/or weight based adjustment of the mA/kVwas utilized to reduce the radiation dose to as low as reasonably achievable.; CT of the right footwas performed with the administration of intravenous contrast. Multiplanar reformatted images are pr ovided for review. Automated exposure control, iterative reconstruction, and/or weight based adjustment of the mA/kV was utilized to reduce the radiation dose to as low as reasonably achievable. COMPARISON: 01/02/2024 HISTORY ORDERING SYSTEM PROVIDED HISTORY: falls / wounds TECHNOLOGIST PROVIDED HISTORY: falls / wounds Additional Contrast?->1; ORDERING SYSTEM PROVIDED HISTORY: wounds / falls TECHNOLOGIST PROVIDED HISTORY: wounds / falls Additional Contrast?->1 FINDINGS: Right tibia/fibulaand foot: Bones: No evidence of acute fracture or dislocation. No aggressive appearing osseous abnormality or periostitis. Plantar calcaneal spur. Soft Tissue: Severe subcutaneous edema throughout the lower calf, ankle and foot most pronounced dorsally. No drainable fluid collection. Extensive atherosclerotic vascular calcifications. No soft tissue gas. No focal intramuscular abnormality. Joint: [id number] tricompartmental osteoarthritis of the knee joint. No osseous erosions. Left tibia/fibula and foot: Bones: No evidence of acute fracture or dislocation. No aggressive appearing osseous abnormality or periostitis. Soft Tissue: Extensive subcutaneous edema throughout the calf, ankle and foot. Focal area of increased soft tissue swelling within the lateral dorsal forefoot, without drainable fluid collection in this region, possibly related to underlying hematoma or phlegmon (series8/image 430 and series 609/image 155). Focal area of non enhancement within the plantar foot soft tissues may reflect tissue necrosis (series 8/image 417 and series 609/image 117). Small ulceration within the lateral ankle skin with adjacent focus of soft tissue gas (series 8/images 363-367). Visualized portions of a popliteal bypass graft appear occluded. No focal intramuscular abnormality. Joint: Moderate to severe osteoarthritis of the knee joint. No osseous erosions. CT right tibia/fibula and foot: 1. No acute fracture or CT evidence of osteomyelitis. 2. Extensive subcutaneous edema throughout the lower extremity which may represent cellulitis. No drainable fluidcollection or soft tissue gas identified. 3. Additional findings, as above. CT left tibia/fibula and foot: 1. Extensive lower extremity subcutaneous edema which may reflect cellulitis. Focal area of non enhancement within the plantar heel soft tissues possibly representing tissue necrosis. No drainable fluid collection identified in this region. MR follow-up may be useful as clinically warranted.2. Focally increased superficial soft tissue edema within the lateral dorsal forefoot possibly repre senting phlegmon or small hematoma. No drainable fluid collection identified in this region at thistime. 3. Small skin ulceration overlying the lateral malleolus with subjacent focus of subcutaneousair. No gross evidence of necrotizing fasciitis. 4. No acute fracture or CT evidence of osteomyelitis. CT TIBIA FIBULA LEFT W CONTRAST Result Date: 08/06/2024 EXAMINATION: CT OF THE RIGHT TIBIA AND FIBULA WITH CONTRAST; CT OF THE LEFT FOOT WITH CONTRAST; CT OF THE LEFT TIBIA AND FIBULA WITH CONTRAST; CT OF THE RIGHT FOOT WITH CONTRAST 08/06/2024 4:06 pm TECHNIQUE: CT of the right tibia and fibula was performed with the administration of intravenous contrast. Multiplanar reformatted images are provided for review. Automated exposure control, iterative reconstruction, and/or weight based adjustment of the mA/kV was utilized to reduce the radiation dose to as low as reasonably achievable.; CT of the left foot was performed with the administration of intravenous contrast. Multiplanar reformatted images are provided for review. Automated exposure control, iterative reconstruction, and/or weight based adjustment of the mA/kV was utilized to reduce the radiation dose to as low as reasonably achievable.; CT of the left tibia and fibula was performed with the administration of intravenous contrast. Multiplanar reformatted images are provided for review. Automated exposure control, iterative reconstruction, and/or weight based adjustment of the mA/kVwas utilized to reduce the radiation dose to as low as reasonably achievable.; CT of the right footwas performed with the administration of intravenous contrast. Multiplanar reformatted images are pr ovided for review. Automated exposure control, iterative reconstruction, and/or weight based adjustment of the mA/kV was utilized to reduce the radiation dose to as low as reasonably achievable. COMPARISON: 01/02/2024 HISTORY ORDERING SYSTEM PROVIDED HISTORY: falls / wounds TECHNOLOGIST PROVIDED HISTORY: falls / wounds Additional Contrast?->1; ORDERING SYSTEM PROVIDED HISTORY: wounds / falls TECHNOLOGIST PROVIDED HISTORY: wounds / falls Additional Contrast?->1 FINDINGS: Right tibia/fibulaand foot: Bones: No evidence of acute fracture or dislocation. No aggressive appearing osseous abnormality or periostitis. Plantar calcaneal spur. Soft Tissue: Severe subcutaneous edema throughout the lower calf, ankle and foot most pronounced dorsally. No drainable fluid collection. Extensive atherosclerotic vascular calcifications. No soft tissue gas. No focal intramuscular abnormality. Joint: [id number]-viuhlxhi tricompartmental osteoarthritis of the knee joint. No osseous erosions. Left tibia/fibula and foot: Bones: No evidence of acute fracture or dislocation. No aggressive appearing osseous abnormality or periostitis. Soft Tissue: Extensive subcutaneous edema throughout the calf, ankle and foot. Focal area of increased soft tissue swelling within the lateral dorsal forefoot, without drainable fluid collection in this region, possibly related to underlying hematoma or phlegmon (series8/image 430 and series 609/image 155). Focal area of non enhancement within the plantar foot soft tissues may reflect tissue necrosis (series 8/image 417 and series 609/image 117). Small ulceration within the lateral ankle skin with adjacent focus of soft tissue gas (series 8/images 363-367). Visualized portions of a popliteal bypass graft appear occluded. No focal intramuscular abnormality. Joint: Moderate to severe osteoarthritis of the knee joint. No osseous erosions. CT right tibia/fibula and foot: 1. No acute fracture or CT evidence of osteomyelitis. 2. Extensive subcutaneous edema throughout the lower extremity which may represent cellulitis. No drainable fluidcollection or soft tissue gas identified. 3. Additional findings, as above. CT left tibia/fibula and foot: 1. Extensive lower extremity subcutaneous edema which may reflect cellulitis. Focal area of non enhancement within the plantar heel soft tissues possibly representing tissue necrosis. No drainable fluid collection identified in this region. MR follow-up may be useful as clinically warranted.2. Focally increased superficial soft tissue edema within the lateral dorsal forefoot possibly repre senting phlegmon or small hematoma. No drainable fluid collection identified in this region at thistime. 3. Small skin ulceration overlying the lateral malleolus with subjacent focus of subcutaneousair. No gross evidence of necrotizing fasciitis. 4. No acute fracture or CT evidence of osteomyelitis. CT TIBIA FIBULA RIGHT W CONTRAST Result Date: 08/06/2024 EXAMINATION: CT OF THE RIGHT TIBIA AND FIBULA WITH CONTRAST; CT OF THE LEFT FOOT WITH CONTRAST; CT OF THE LEFT TIBIA AND FIBULA WITH CONTRAST; CT OF THE RIGHT FOOT WITH CONTRAST 08/06/2024 4:06 pm TECHNIQUE: CT of the right tibia and fibula was performed with the administration of intravenous contrast. Multiplanar reformatted images are provided for review. Automated exposure control, iterative reconstruction, and/or weight based adjustment of the mA/kV was utilized to reduce the radiation dose to as low as reasonably achievable.; CT of the left foot was performed with the administration of intravenous contrast. Multiplanar reformatted images are provided for review. Automated exposure control, iterative reconstruction, and/or weight based adjustment of the mA/kV was utilized to reduce the radiation dose to as low as reasonably achievable.; CT of the left tibia and fibula was performed with the administration of intravenous contrast. Multiplanar reformatted images are provided for review. Automated exposure control, iterative reconstruction, and/or weight based adjustment of the mA/kVwas utilized to reduce the radiation dose to as low as reasonably achievable.; CT of the right footwas performed with the administration of intravenous contrast. Multiplanar reformatted images are pr ovided for review. Automated exposure control, iterative reconstruction, and/or weight based adjustment of the mA/kV was utilized to reduce the radiation dose to as low as reasonably achievable. COMPARISON: 01/02/2024 HISTORY ORDERING SYSTEM PROVIDED HISTORY: falls / wounds TECHNOLOGIST PROVIDED HISTORY: falls / wounds Additional Contrast?->1; ORDERING SYSTEM PROVIDED HISTORY: wounds / falls TECHNOLOGIST PROVIDED HISTORY: wounds / falls Additional Contrast?->1 FINDINGS: Right tibia/fibulaand foot: Bones: No evidence of acute fracture or dislocation. No aggressive appearing osseous abnormality or periostitis. Plantar calcaneal spur. Soft Tissue: Severe subcutaneous edema throughout the lower calf, ankle and foot most pronounced dorsally. No drainable fluid collection. Extensive atherosclerotic vascular calcifications. No soft tissue gas. No focal intramuscular abnormality. Joint: [id number] tricompartmental osteoarthritis of the knee joint. No osseous erosions. Left tibia/fibula and foot: Bones: No evidence of acute fracture or dislocation. No aggressive appearing osseous abnormality or periostitis. Soft Tissue: Extensive subcutaneous edema throughout the calf, ankle and foot. Focal area of increased soft tissue swelling within the lateral dorsal forefoot, without drainable fluid collection in this region, possibly related to underlying hematoma or phlegmon (series8/image 430 and series 609/image 155). Focal area of non enhancement within the plantar foot soft tissues may reflect tissue necrosis (series 8/image 417 and series 609/image 117). Small ulceration within the lateral ankle skin with adjacent focus of soft tissue gas (series 8/images 363-367). Visualized portions of a popliteal bypass graft appear occluded. No focal intramuscular abnormality. Joint: Moderate to severe osteoarthritis of the knee joint. No osseous erosions. CT right tibia/fibula and foot: 1. No acute fracture or CT evidence of osteomyelitis. 2. Extensive subcutaneous edema throughout the lower extremity which may represent cellulitis. No drainable fluidcollection or soft tissue gas identified. 3. Additional findings, as above. CT left tibia/fibula and foot: 1. Extensive lower extremity subcutaneous edema which may reflect cellulitis. Focal area of non enhancement within the plantar heel soft tissues possibly representing tissue necrosis. No drainable fluid collection identified in this region. MR follow-up may be useful as clinically warranted.2. Focally increased superficial soft tissue edema within the lateral dorsal forefoot possibly repre senting phlegmon or small hematoma. No drainable fluid collection identified in this region at thistime. 3. Small skin ulceration overlying the lateral malleolus with subjacent focus of subcutaneousair. No gross evidence of necrotizing fasciitis. 4. No acute fracture or CT evidence of osteomyelitis. CT FOOT RIGHT W CONTRAST Result Date: 08/06/2024 EXAMINATION: CT OF THE RIGHT TIBIA AND FIBULA WITH CONTRAST; CT OF THE LEFT FOOT WITH CONTRAST; CT OF THE LEFT TIBIA AND FIBULA WITH CONTRAST; CT OF THE RIGHT FOOT WITH CONTRAST 08/06/2024 4:06 pm TECHNIQUE: CT of the right tibia and fibula was performed with the administration of intravenous contrast. Multiplanar reformatted images are provided for review. Automated exposure control, iterative reconstruction, and/or weight based adjustment of the mA/kV was utilized to reduce the radiation dose to as low as reasonably achievable.; CT of the left foot was performed with the administration of intravenous contrast. Multiplanar reformatted images are provided for review. Automated exposure control, iterative reconstruction, and/or weight based adjustment of the mA/kV was utilized to reduce the radiation dose to as low as reasonably achievable.; CT of the left tibia and fibula was performed with the administration of intravenous contrast. Multiplanar reformatted images are provided for review. Automated exposure control, iterative reconstruction, and/or weight based adjustment of the mA/kVwas utilized to reduce the radiation dose to as low as reasonably achievable.; CT of the right footwas performed with the administration of intravenous contrast. Multiplanar reformatted images are pr ovided for review. Automated exposure control, iterative reconstruction, and/or weight based adjustment of the mA/kV was utilized to reduce the radiation dose to as low as reasonably achievable. COMPARISON: 01/02/2024 HISTORY ORDERING SYSTEM PROVIDED HISTORY: falls / wounds TECHNOLOGIST PROVIDED HISTORY: falls / wounds Additional Contrast?->1; ORDERING SYSTEM PROVIDED HISTORY: wounds / falls TECHNOLOGIST PROVIDED HISTORY: wounds / falls Additional Contrast?->1 FINDINGS: Right tibia/fibulaand foot: Bones: No evidence of acute fracture or dislocation. No aggressive appearing osseous abnormality or periostitis. Plantar calcaneal spur. Soft Tissue: Severe subcutaneous edema throughout the lower calf, ankle and foot most pronounced dorsally. No drainable fluid collection. Extensive atherosclerotic vascular calcifications. No soft tissue gas. No focal intramuscular abnormality. Joint: [id number]-wmtyxlko tricompartmental osteoarthritis of the knee joint. No osseous erosions. Left tibia/fibula and foot: Bones: No evidence of acute fracture or dislocation. No aggressive appearing osseous abnormality or periostitis. Soft Tissue: Extensive subcutaneous edema throughout the calf, ankle and foot. Focal area of increased soft tissue swelling within the lateral dorsal forefoot, without drainable fluid collection in this region, possibly related to underlying hematoma or phlegmon (series8/image 430 and series 609/image 155). Focal area of non enhancement within the plantar foot soft tissues may reflect tissue necrosis (series 8/image 417 and series 609/image 117). Small ulceration within the lateral ankle skin with adjacent focus of soft tissue gas (series 8/images 363-367). Visualized portions of a popliteal bypass graft appear occluded. No focal intramuscular abnormality. Joint: Moderate to severe osteoarthritis of the knee joint. No osseous erosions. CT right tibia/fibula and foot: 1. No acute fracture or CT evidence of osteomyelitis. 2. Extensive subcutaneous edema throughout the lower extremity which may represent cellulitis. No drainable fluidcollection or soft tissue gas identified. 3. Additional findings, as above. CT left tibia/fibula and foot: 1. Extensive lower extremity subcutaneous edema which may reflect cellulitis. Focal area of non enhancement within the plantar heel soft tissues possibly representing tissue necrosis. No drainable fluid collection identified in this region. MR follow-up may be useful as clinically warranted.2. Focally increased superficial soft tissue edema within the lateral dorsal forefoot possibly repre senting phlegmon or small hematoma. No drainable fluid collection identified in this region at thistime. 3. Small skin ulceration overlying the lateral malleolus with subjacent focus of subcutaneousair. No gross evidence of necrotizing fasciitis. 4. No acute fracture or CT evidence of osteomyelitis. CT CHEST ABDOMEN PELVIS W CONTRAST Additional Contrast? None Result Date: 08/06/2024 EXAMINATION: CT OF THE CHEST, ABDOMEN, AND PELVIS WITH CONTRAST 08/06/2024 4:02 pm TECHNIQUE: CT of the chest, abdomen and pelvis was performed with the administration of intravenous contrast. Multiplanar reformatted images are provided for review. Automated exposure control, iterative reconstruction, and/or weight based adjustment of the mA/kV was utilized to reduce the radiation dose to as low asreasonably achievable. COMPARISON: CT chest December 13, 2022. CT abdomen January 04, 2022. HISTORY: ORDERING SYSTEM PROVIDED HISTORY: SOB / weight loss TECHNOLOGIST PROVIDED HISTORY: SOB / weight loss FINDINGS: Chest: Mediastinum: 7 mm calcification right lobe of the thyroid. Calcified plaque along the aortic arch and moderate least severe stenosis of the brachiocephalic artery. Cardiomegaly andcalcific coronary artery disease. Prominent main pulmonary artery measures over 4 cm suggestive of possible pulmonary hypertension. Lungs/pleura: Subsegmental atelectasis left lung base. Lungs otherwise clear. Soft Tissues/Bones: Mild spondylosis and degenerative disc disease. Multilevel vacuum disc phenomena. Abdomen/Pelvis: Organs: Ventral hernia is wide mouth and contains loops of small and large bowel without evidence of obstruction. The liver, spleen, pancreas, and adrenals appear normal. Gallbladder surgically absent. Dilated intra and extrahepatic bile ducts. Moderately severe right renal atrophy. Left kidney normal. The bladder appears normal. GI/Bowel: The stomach,small bowel, and colon appear normal. Increased stool in the colon. A few air-fluid levels are noted in the small socorro l. Stomach normal. Appendix normal. Pelvis: Fem-fem bypass graft appears discontiguous and occluded. Bilateral superficial femoral artery occlusion or near occlusion is noted. Peritoneum/Retroperitoneum: . There is no pathologic adenopathy. Calcified plaque along the aorta and its branches. [place] aorta occluded or nearly occluded. Aortic graft appears opacified. No pathologic retroperitoneal lymphadenopathy. IVC normal. Bones/Soft Tissues: Degenerative disc disease and spondylosis. Coxa plana right hip. The cystic changes noted on either side of the joint. Cortical defect noted within the superomedial acetabulum. Compression fracture mild L2. Large posterior bridging disc marginal osteophyte causing moderate spinal stenosis. Grade 1 spondylolisthesis L2-3. Bilateral pars defects noted atL1 and L2. 1. Fem-fem bypass graft appears discontiguous and occluded. Bilateral superficial femoral artery occlusion or near occlusion is noted. Age is indeterminate. 2. Cardiomegaly and calcific coronary artery disease. 3. Prominent main pulmonary artery measures over 4 cm suggestive of possible pulmonary hypertension. 4. Ventral hernia is wide mouth and contains loops of small and large bowel without evidence of obstruction. 5. Moderately severe right renal atrophy. 6. Increased stool in the colon. 7. A few air-fluid levels are noted in the small bowel. 8. 7 mm calcification right lobe of the thyroid. Recommend follow-up nonemergent thyroid ultrasound. 9. 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 10. Aortic graft appears opacified. 11. Compression fracture L2, age indeterminate. 12. Large posterior disc marginal osteophyte causing moderately severe spinal stenosis centrally.13. Grade 1 spondylolisthesis L2-3 and bilateral pars defects at L2 and L3. 14. Multilevel vacuum disc phenomena. CT HEAD WO CONTRAST Result Date: 08/06/2024 EXAMINATION: CT OF THE HEAD WITHOUT CONTRAST 08/06/2024 4:01 pm TECHNIQUE: CT of the head was performed without the administration of intravenous contrast. Automated exposure control, iterative reconstruction, and/or weight based adjustment of the mA/kV was utilized to reduce the radiation dose to aslow as reasonably achievable. COMPARISON: 02/09/2021 HISTORY: Falls. FINDINGS: Image quality degraded by motion artifact. BRAIN/VENTRICLES: No acute intracranial hemorrhage, mass effect, or midline shift. No abnormal extra-axial fluid collection. The stephenson-white differentiation is maintained withoutevidence of an acute infarct. Mild-moderate parenchymal volume loss and chronic small vessel ischemic changes. No hydrocephalus. ORBITS: The visualized portion of the orbits demonstrate no acute abnormality. SINUSES: The visualized paranasal sinuses and mastoid air cells demonstrate no acute abnormality. SOFT TISSUES/SKULL: Mild hematoma along the left forehead. No acute calvarial fracture. No acute intracranial abnormality or calvarial fracture. Assessment and Plan: Patient Active Problem List Diagnosis Date Noted Unstable angina ([facility]) 03/17/2020 Angina, class III 02/25/2018 Diabetic ulcer of toe of left foot associated with type 2 diabetes mellitus, with fat layer exposed([facility]) 01/24/2017 CAD S/P percutaneous coronary angioplasty 08/30/2013 Severe malnutrition 08/07/2024 Left hand pain 06/11/2022 Primary hypertension 05/04/2022 Chronic obstructive pulmonary disease (HCC) 04/09/2022 Chronic suppurative otitis media of left ear 04/09/2022 Mass of left thigh 04/09/2022 Personal history of tobacco use 03/13/2022 Functional incontinence 03/13/2022 Non-recurrent acute suppurative otitis media of left ear without spontaneous rupture of tympanic membrane 03/13/2022 Chronic cough 03/13/2022 Cystitis 02/15/2022 Chronic pain syndrome 02/15/2022 Chronic left hip pain 12/18/2021 Recurrent abdominal hernia without obstruction or gangrene 11/30/2021 Right lower quadrant abdominal mass 11/30/2021 Shortness of breath 11/23/2021 Cystic mass of pancreas 08/17/2021 Pancreatic mass 08/17/2021 Left leg cellulitis 08/17/2021 Excessive ear wax, bilateral 08/17/2021 Bronchitis 07/25/2021 Diabetic polyneuropathy associated with type 2 diabetes mellitus ([facility]) 01/24/2017 Tobacco abuse disorder 05/27/2014 Ventral hernia 08/30/2013 Fall 08/06/2024 Cellulitis of lower extremity, unspecified laterality 08/06/2024 Oxygen dependent - 2L per baseline 08/06/2024 Acute insomnia 07/27/2024 Diabetic ulcer of left heel associated with type 2 diabetes mellitus, with fat layer exposed ([facility]) 07/21/2024 Mouth sore 07/21/2024 Weight loss 06/24/2024 Closed fracture of pelvis ([facility]) 06/23/2024 Closed head injury 06/23/2024 Closed fracture of nasal bone 06/23/2024 Gastric ulcer without hemorrhage or perforation 06/23/2024 Cellulitis 06/15/2024 Dry skin 06/15/2024 Numbness 05/16/2024 Restlessness and agitation 05/16/2024 Neuropathy 04/30/2024 Ischemic rest pain of lower extremity 04/17/2024 Disorder of arteries and arterioles, unspecified 04/16/2024 Pain in leg, unspecified 04/16/2024 Disorder of circulatory system 04/16/2024 Musculoskeletal problem 04/16/2024 Viral infection, unspecified 03/18/2024 Erythematous condition, unspecified 03/07/2024 Myocardial infarction ([facility]) 03/02/2024 Presence of stent in coronary artery 03/02/2024 Pulmonary emboli ([facility]) 03/02/2024 Spondylosis of lumbar spine 03/02/2024 Spinal stenosis of lumbar region 03/02/2024 Breast cancer screening by mammogram 03/02/2024 Traumatic skin ulcer, limited to breakdown of skin ([facility]) 01/10/2024 Ulcer of left great toe due to diabetes mellitus ([facility]) 01/10/2024 Acute lower GI bleeding 01/09/2024 Upper GI bleed 01/09/2024 Transient alteration of awareness 01/09/2024 Acute lower gastrointestinal hemorrhage 01/09/2024 Lower GI bleed 01/09/2024 Vomiting 01/06/2024 Chronic coughing 08/13/2023 Allergic rhinitis 08/13/2023 COPD with acute exacerbation ([facility]) 07/12/2023 Elevated hemoglobin A1c 06/10/2023 Generalized abdominal pain 06/10/2023 Heart failure (HCC) 04/12/2023 Anemia 01/28/2023 Acute congestive heart failure, unspecified heart failure type (HCC) 12/13/2022 Spleen hematoma 12/13/2022 Hypertensive emergency 11/09/2022 Hernia of abdominal wall 10/29/2022 Chest congestion 09/21/2022 Laceration of spleen 09/02/2022 Pulmonary HTN (HCC) 09/02/2022 Spleen injury 09/02/2022 Chronic obstructive pulmonary disease with acute exacerbation (HCC) 08/13/2022 Hypoxia 08/07/2022 Acute bilateral low back pain with bilateral sciatica 07/10/2022 Hyperglycemia 07/10/2022 PRES (posterior reversible encephalopathy syndrome) 08/25/2021 Diarrhea 07/04/2021 Chronic diastolic congestive heart failure (HCC) 07/04/2021 Malnutrition 06/22/2021 Right sided abdominal pain 06/22/2021 Mass of pancreas 06/22/2021 Nausea 06/22/2021 Sleeping difficulty 06/22/2021 Insomnia 06/22/2021 Weakness generalized 05/12/2021 Hypovitaminosis D 05/04/2021 Moderate malnutrition 05/02/2021 Pneumonia due to COVID-19 virus -- Not Vaccinated 05/01/2021 Respiratory distress 05/01/2021 Abdominal aortic aneurysm without rupture 04/18/2021 Abdominal aortic aneurysm (AAA) without rupture 04/18/2021 Muscle spasm 04/06/2021 Right hip pain 04/06/2021 Urinary incontinence 04/06/2021 Chronic pain of right knee 03/23/2021 Chronic right hip pain 03/23/2021 Sacral pain 03/23/2021 Lumbar back pain with radiculopathy affecting right lower extremity 03/23/2021 Chronic left shoulder pain 03/23/2021 Leg edema 03/23/2021 Hyperlipidemia 03/23/2021 Depression 03/23/2021 Anxiety 03/23/2021 Acute on chronic diastolic heart failure (HCC) 03/18/2021 Cellulitis of left lower extremity 02/21/2021 S/P cardiac cath 03/18/2020 S/P angioplasty with stent 03/18/2020 Acute coronary syndrome (HCC) 03/17/2020 E. coli UTI 07/20/2019 AMS (altered mental status) 07/18/2019 Pneumonia due to infectious organism 04/23/2019 COPD (chronic obstructive pulmonary disease) ([facility]) Diabetes mellitus ([facility]) Hypertension Community acquired bacterial pneumonia 04/21/2019 COPD exacerbation ([facility]) 06/06/2018 COPD with exacerbation ([facility]) 06/05/2018 Hx of blood clots CAD (coronary artery disease) Severe obesity ([facility]) 11/05/2017 Laceration of nose 10/22/2017 Postoperative state 06/27/2017 Tobacco abuse counseling 05/27/2014 Pain in lower limb 05/27/2014 Dizziness 05/27/2014 Intolerance of drug 05/27/2014 Atherosclerosis of both carotid arteries 05/27/2014 Hypothyroidism 05/27/2014 Abnormal nuclear stress test 01/22/2013 Smoking greater than 40 pack years 01/22/2013 Claudication in peripheral vascular disease 11/06/2012 Stable angina 11/06/2012 Discharge Medications: Medication List START taking these medications amoxicillin-clavulanate 875-125 MG per tablet Commonly known as: AUGMENTIN Take 1 tablet by mouth 2 times daily for 14 days metFORMIN 500 MG tablet Commonly known as: GLUCOPHAGE Take 1 tablet by mouth 2 times daily (with meals) povidone-iodine 10 % external solution Commonly known as: Betadine Apply to wounds of legs, feet and toes daily. Let dry and cover with dry dressings CHANGE how you take these medications gabapentin 800 MG tablet Commonly known as: NEURONTIN Take 1 tablet by mouth 3 times daily for 90 days. What changed: Another medication with the same name was removed. Continue taking this medication, and follow the directions you see here. CONTINUE taking these medications * albuterol (2.5 MG/3ML) 0.083% nebulizer solution Commonly known as: PROVENTIL Take 3 mLs by nebulization every 6 hours as needed for Wheezing or Shortness of Breath * albuterol sulfate HFA 108 (90 Base) MCG/ACT inhaler Commonly known as: PROVENTIL;VENTOLIN;PROAIR inhale 2 puffs by mouth and INTO THE LUNGS four times a day if needed for wheezing amLODIPine 10 MG tablet Commonly known as: NORVASC Take 1 tablet by mouth daily ammonium lactate 12 % lotion Commonly known as: LAC-HYDRIN Apply topically as needed. apixaban 5 MG Tabs tablet Commonly known as: ELIQUIS Take 1 tablet by mouth daily aspirin 81 MG chewable tablet Commonly known as: Aspirin Low Dose Take 1 tablet by mouth daily benzonatate 200 MG capsule Commonly known as: TESSALON Take 1 capsule by mouth 3 times daily as needed for Cough Blood Pressure Kit 1 kit by Does not apply route daily budesonide-formoterol 160-4.5 MCG/ACT Aero Commonly known as: Symbicort Inhale 2 puffs into the lungs 2 times daily chlorhexidine 0.12 % solution Commonly known as: PERIDEX swish and spit 15ml BY MOUTH TWICE DAILY docusate sodium 100 MG capsule Commonly known as: COLACE Take 1 capsule by mouth 2 times daily as needed for Constipation Flovent HFA 44 MCG/ACT inhaler Generic drug: fluticasone Inhale 2 puffs into the lungs 2 times daily Incontinence Supplies Misc Use as directed for incontinence isosorbide mononitrate 60 MG extended release tablet Commonly known as: IMDUR Take 1 tablet by mouth daily levothyroxine 150 MCG tablet Commonly known as: SYNTHROID Take 1 tablet by mouth every morning losartan 100 MG tablet Commonly known as: COZAAR Take 1 tablet by mouth daily Magic Mouthwash Commonly known as: Miracle Mouthwash Swish and swallow 15 mLs 4 times daily as needed for Irritation Shake Well; For Oral Use. LidocaineViscous 2%; 80mL, Diphenhydramine 12.5MG/5Ml; 80mL, ALUM & MAG HYDROXIDE-SIMETH 200-200-20 MG/5ML; 80mL. methocarbamol 750 MG tablet Commonly known as: ROBAXIN Fill when due. OARS/PMDP reviewed. take 1 tablet by mouth four times a day - MORNING, NOON, EVENINGAND BEDTIME metoprolol succinate 25 MG extended release tablet Commonly known as: TOPROL XL Take 1 tablet by mouth daily nitroGLYCERIN 0.4 MG SL tablet Commonly known as: Nitrostat Place 1 tablet under the tongue every 5 minutes as needed for Chest pain up to max of 3 total doses. If no relief after 1 dose, call 911. oxyCODONE-acetaminophen 7.5-325 MG per tablet Commonly known as: Percocet Take 1 tablet by mouth every 6 hours as needed for Pain for up to 30 days. Fill when due. OARS/PMDPreviewed. Intended supply: 30 days Max Daily Amount: 4 tablets pantoprazole 40 MG tablet Commonly known as: PROTONIX Take 1 tablet by mouth daily pravastatin 40 MG tablet Commonly known as: PRAVACHOL Take 1 tablet by mouth daily [facility] Incontinence Pads Misc 1 each by Does not apply route 4 times daily as needed (incontinence) tiotropium 18 MCG inhalation capsule Commonly known as: Spiriva HandiHaler Inhale 1 capsule into the lungs daily vitamin D 1.25 MG (73038 UT) Caps capsule Commonly known as: ERGOCALCIFEROL take 1 capsule by mouth every week zolpidem 10 MG tablet Commonly known as: Ambien Take 1 tablet by mouth nightly as needed for Sleep for up to 30 days. Max Daily Amount: 10 mg * This list has 2 medication(s) that are the same as other medications prescribed for you. Read thedirections carefully, and ask your doctor or other care provider to review them with you. Where to Get Your Medications These medications were sent to [id number] - [place], [place] - [address] - P [phone] - F [phone] [place] [address] amoxicillin-clavulanate 875-125 MG per tablet metFORMIN 500 MG tablet povidone-iodine 10 % external solution Patient Instructions: Activity: activity as tolerated Diet: regular diet Wound Care: none needed Other: na Disposition: Discharge to Home with home health Follow up: Patient will be followed by Osmar Rodriguez MD in 1-2 weeks CORE MEASURES on Discharge (if applicable) FAUSTO/ARB in CHF: NA Statin in ME: NA ASA in ME: NA Statin in CVA: NA Antiplatelet in CVA: NA Total time spent on discharge services: 40 minutes Including the following activities: Evaluation and Management of patient Discussion with patient and/or surrogate about current care plan Coordination with Case Management and/or Car Seat Maker Coordination of care with Consultants (if applicable) Coordination of care with Receiving Facility Physician (if applicable) Completion of DME forms (if applicable) Preparation of Discharge Summary Preparation of Medication Reconciliation Preparation of Discharge Prescriptions Signed: Oliva Dunlap APRN - FABIENNE, INSPECTOR [employer], RABBET OPERATOR-C 08/10/2024, 1:57 PM Please note that this chart was generated using voice recognition [employer] dictation software. Although every effort was made to ensure the accuracy of this automated skidder lever operator, some errors in skidder lever operator may have occurred. Cosigned by Osmar Rodriguez MD at 08/10/2024 6:52 PM EDT Associated attestation - Osmar Rodriguez MD - 08/10/2024 6:52 PM EDT Images from the original note were not included. [address], [address] Attestation Patient: Jonatan Olivarez Date of Admission: 08/06/2024 1:44 PM Hospital Day # 4 Date of Evaluation: 08/10/2024 I personally evaluated and examined the patient [id number] in conjunction with the PA/RABBET OPERATOR and agree with the management and dispostition of the patient. Please see the PA/RABBET OPERATOR's note for full details.My sims findings are: Admission date: 08/06/2024 Discharge date: 08/10/2024 Principle Diagnosis: Cellulitis of lower extremity, unspecified laterality Exam: GEN: Awake, alert and oriented x3. EYES: EOMI, pupils equal NECK: Supple. No lymphadenopathy. No carotid bruit CVS: regular rate and rhythm, no audible murmur PULM: CTA, no wheezes, rales or rhonchi, no acute respiratory distress ABD: Bowels sounds normal. Abdomen is soft. No distention. no tenderness to palpation. EXT: 1+ edema bilaterally . No calf tenderness. NEURO: Moves all extremities. Motor and sensory are grossly intact SKIN: No rashes. LE wounds noted bilaterally - erythematous, wrapped in FAUSTO Disposition: Discharge to Home with home health Follow Up: Follow up with Osmar Rodriguez MD in 1-2 weeks Total time spent on discharge services: 40 minutes Including the following activities: Evaluation and Management of patient Discussion with patient and/or surrogate about current care plan Coordination with Case Management and/or Car Seat Maker Coordination of care with Consultants (if applicable) Coordination of care with Receiving Facility Physician (if applicable) Completion of DME forms (if applicable) Preparation of Discharge Summary Preparation of Medication Reconciliation Preparation of Discharge Prescriptions If there are any worsening or concerning signs or symptoms, patient will report to the ED and/or contact [phone] for immediate evaluation. Teach back method was used. All patient questions answered. Pt voiced understanding. Please note that this chart was generated using voice recognition [employer]on dictation software. Although every effort was made to ensure the accuracy of this automated skidder lever operator, some errors in skidder lever operator may have occurred. Osmar Rodriguez MD 08/10/2024 6:51 PM documented in this encounterBon [facility] [place] Miscellaneous Notes* Telephone Encounter - Lawandajeanette Francis - 08/07/2024 12:37 PM EDT The patient was a no show today. Ladle Operator unable to LVM requesting patient call back to schedule another appointment. Unable to complete call. [facility] Telephone encounter Note* Telephone Encounter - Lawanda Francis - 08/07/2024 12:37 PM EDT The patient was a no show today. Ladle Operator unable to LVM requesting patient call back to schedule another appointment. Unable to complete call. [facility]04-18-2025 Miscellaneous Notes* Telephone Encounter - Libertad Vargas MA - 07/17/2024 9:[address] [facility] MEDICATION [place] [id number] New referral received by [facility] Medication Management for diabetes. Patient was contacted to schedule appointment at [facility] Medication Management [place] ([facility]). This was my first attempt to reach the patient and was able to schedule the patient on 08/07/24 at [facility]. Patient will be asked to bring [facility] Additional Info: Medication List and Blood Glucose Meter, and glucometer Referring provider: Alondra Amado APRNAIDAN documented in [facility] encounter[facility]04-[facility] Telephone encounter Note* Telephone Encounter - Libertad Vargas MA - 07/17/2024 9:[address] [facility] MEDICATION [facility]NAGEMENT [address] [place] [facility] [phone] New referral received by [facility] Medication Management for diabetes. Patient was contacted to schedule appointment at [facility] Medication Management [place] ([facility]). This was my first attempt to reach the patient and was able to schedule the patient on 08/07/24 at [facility]. Patient will be asked to bring [facility] Additional Info: Medication List and Blood Glucose Meter, and glucometer Referring provider: YOVANY Tang [facility]10-23-2024 Progress note Author Luis Fernando [facility] January 22, 2024 8:47pmNote Date/TimeOct2023 7:37[place] [address] Hospitalist Progress Note Signed Patient: Jonatan Olivarez MR#: [id number] : 1960 Acct:[id number] Age/Sex: 63 / F Adm Date: 4 Loc: 3T Room: [address] [place] [address] Type: ADM IN Attending Dr: Luis Fernando Strauss MD Copies to: ~ Date of Service: 01/22/2024 Subjective Subjective Narrative: Jonatan was examined this evening bedside seated upright comfortably. She is alert and oriented able to provide insight to her opioid preferences. She requests changes to her pain medications as wellas addition to IV Morphine for headaches. Normal BMs no changes to urinary habits, color. Further HPI, statesher home O2 concentrator is not as powerful as the one on the wall here and started makingweird sounds. Otherwise has no complaints denies multi-system ROS. Exam Physical Exam Vital Signs: Temp Pulse Resp BP Pulse Ox O2 Del Method O2 Flow Rate 97.6 F 62 16 112/68 97 Nasal Cannula 2 01/22/24 15:21 01/22/24 15:21 01/22/24 15:21 01/22/24 15:21 01/22/24 16:17 01/22/24 16:17 01/22/24 16:17 Narrative: Constitutional: Frail, cachectic elderly WF, seating upright in bed, conversant HEENT: O2 via NC, Moist mucous membranes, neck supple, no JVD Cardiovascular: RRR, no M/R/G, normal S1 and S2 Respiratory: Coarse crackles heard w/ prominence of right lobes, breathing nonlabored, diminished throughout, no wheezes, rales or rhonchi GI: Soft, NTND, NABS Extremities: Thin extremities, patient able to move all extremities without significant issue, anasarca Neuro: AAO times person, able to follow commands when asked. No clear focal deficits Skin: Diffuse bruisability, no rashes or lesions noted upon anterior inspection Psych: Calm, but easily irritable Objective Lab Results 01/22/24 07:10 01/22/24 07:10 Meds Allergies and Active Meds Allergies codeine Allergy (Verified 01/19/24 16:45) Hives Active Meds: Active Medications Generic Name Dose Route Start Last Admin Trade Name Franklinq PRN Reason Stop Dose Admin Acetaminophen 325 mg 01/19/24 20:44 01/22/24 08:25 Acetaminophen 325 Mg Tablet PO 01/18/25 20:43 325 mg Q8HR PRN Administration pain Apixaban 2.5 mg 01/22/24 21:00 Apixaban 2.5 Mg Tablet PO 01/21/25 20:59 BID NEENA Aspirin 81 mg 01/20/24 09:00 01/22/24 08:24 Aspirin 81 Mg Tablet.Dr PO 01/19/25 08:59 81 mg DAILY NEENA Administration Gabapentin 300 mg 01/21/24 11:20 01/22/24 14:44 Gabapentin 300 Mg Capsule PO 01/20/25 11:19 300 mg TID NEENA Administration Isosorbide Mononitrate 60 mg 01/20/24 09:00 01/22/24 08:24 Isosorbide Mononitrate 24hr Er 60 Mg Tab.Er.24h PO 01/19/25 08:59 60 mg DAILY NEENA Administration Levothyroxine Sodium 150 mcg 01/20/24 06:30 01/22/24 05:56 Levothyroxine 150 Mcg Tablet PO 01/19/25 06:29 150 mcg DAILY.0630 NEENA Administration Metoprolol Succinate 25 mg 01/20/24 09:00 01/22/24 08:25 Metoprolol Succinate 25 Mg Tab.Er.24h PO 01/19/25 08:59 25 mg DAILY NEENA Administration Nicotine 1 each 01/21/24 10:40 01/22/24 08:25 Nicotine Patch 14 Mg/24hr 1 Each Patch.Td24 TRANSDERML 02/03/24 09:01 1 each DAILY NEENA Administration Oxycodone HCl 10 mg 01/19/24 20:43 01/22/24 11:33 Oxycodone Ir 5 Mg Tablet PO 10 mg Q8HR PRN Administration pain Pantoprazole Sodium 40 mg 01/22/24 21:00 Pantoprazole 40 Mg Tablet.Dr PO 01/21/25 20:59 BID NEENA Quetiapine Fumarate 25 mg 01/22/24 22:00 Quetiapine Fumarate 25 Mg Tablet PO 01/21/25 21:59 QHS NEENA Sodium Chloride 0 ml 01/19/24 16:40 01/19/24 18:30 Sodium Chloride 0.9 % 10 Ml Syringe IV-PUSH 01/18/25 16:39 10 ml PRN PRN Administration Flush Sodium Chloride 0 ml 01/19/24 18:20 Sodium Chloride 0.9 % 10 Ml Syringe IV-PUSH 01/18/25 18:19 PRN PRN Flush Sucralfate 1 gm 01/20/24 00:00 01/22/24 11:34 Sucralfate Susp 1 Gm/10 Ml Udc PO 01/19/25 00:00 1 gm Q6HR NEENA Administration A&P - Hospitalist Assessment/Plan (1) CAD (coronary artery disease): (2) Pulmonary emboli: (3) Anemia: Plan Atypical Chest pain with HEART score of 5 Peripheral left lower lobe PE with no evidence of right heart strain Significant past medical history of CAD with prior PCI CT of the chest did demonstrate small subsegmental PE of left lower lobe and possibly right upper lobe. Chest pain negative for ACS with recommendation to resume single antiplatelet per cardiology. Patient had stents placed <1y ago. Recommendation per vascular to resume anticoagulation with Aspirin and place IVCfilter if necessary. Risk vs benefit to starting anticoagulation discussed in depthgiven recent gastric ulcers. Patient H/H stable on brief trial of Lovenox. -transition from lovenox to apixaban 2.5 mg BID--> will see if patient has any bleeding and can increase to 5 twice daily if she tolerates this dose -continue to trend H/H -continue aspirin Recent Upper GI bleeding, reportedly due to Gastric ulcer Reportedly had a large vessel opening to the pylorus that had to be injected with epinephrine and Hemoclip twice. Hemoglobin is low at 7.7 x2. No evidence of bleeding noted on exam at this time. FOBT was negative -Continue PPI IV twice daily -Monitor CBC closely Hypotension likely due to Dehydration-Resolved Submassive or Massive PE is unlikely. 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 Some coarse sounds in lower lung grace some improvement on left from prior exam now heard more prominently on right. Likely due to chronic emphysematous changes in current smoker with >70PY cigarette smoke history -Continue supplemental O2; wean O2 as tolerated Ventral Abdominal Hernia Does not appear to have acute abdomen abdominal exam at this time. Tolerating PO, good appetite. Chronic pain syndrome, unspecified Patient has chronic pain which she takes oxycodone for on a daily basis. She ritesh high doses of gabapentin, was discharged on 3 days of Lyrica on 01/18/2024, takes Percocet 4 times daily. -continue home Lyrica, gabapentin -Roxicodone for pain Nicotine Dependence Hypothyroidism Dyslipidemia Hypertension Insomnia -Continue home meds -Seroquel to nightly as needed DVT prophylaxis addressed above CODE STATUS: FULL CODE Dr. Strauss Attestation: Patient was personally seen by me on the day of encounter. I reviewed her history and performed keyelements of exam and formulated the plan of care and confirmed the resident's note above. Plan of care reflects my direct input Documented By: Luis Fernando Strauss MD [id number] Signed By: <Electronically signed by Luis Fernando Strauss MD> 01/22/242046 <Electronically signed by MD IDALMIS Naqvi> 01/22/241938 [facility] Work Phone: 1(756) 984-104710-23-2024 Progress note Author Ziggy [facility] January 22, 2024 8:36pmNote Date/TimeOctober 2023 8:[address] [address] Progress Note Signed Patient: Jonatan Olivarez MR#: [id number] : 1960 Acct:[id number] Age/Sex: 63 / F Adm Date: 4 Loc: 3T Room: [address] [place] [address] Type: ADM IN Attending Dr: Luis Fernando Strauss MD Copies to: ~ Date of Service: 01/22/2024 Progress Narrative Note PROGRESS NOTE Progress Note: Case was discussed with hospitalist service. Patient's hemoglobin has remained stable despite full dose anticoagulation with Lovenox. Recommendation was initiation of apixaban at 2.5 mg twice daily and to continue observe/trend hemoglobin for evidence of continued bleeding. Patient has been transferred outof the ICU. Pulmonary/critical care medicine will sign off. Please call if we can be of further assistance. Documented By: Ziggy Barraza MD [id number] Signed By: <Electronically signed by MD Ziggy Barraza> 01/22/242035 [facility] Work Phone: 1(760) 168-952510-23-2024 Consult note Author Artur Guo [facility] January 22, 2024 2:41pmNote Date/TimeOctober 2023 6:[address] [address] Vascular Surgery Consult Note Signed Patient: Jonatan Olivarez MR#: [id number] : 1960 Acct:[id number] Age/Sex: 63 / F Adm Date: 4 Loc: 3T Room: [address] [place] [address] Type: ADM IN Attending Dr: Luis Fernando Strauss MD Copies to: NON STAFF MD Michelle Meza APRN Artur Guo MD~ HPI Consult HPI History of present illness: Ms. Olivarez is a 63 year old female with a past medical history of coronary artery disease status post PCI on Plavix, peripheral vascular disease, COPD/emphysema on 2 L nasal cannula at home, chronicpain syndrome, dyslipidemia, diabetes mellitus type 2, hypertension, hypothyroidism and recent GI bleed who presented to the emergency department on January 18 with a complaint of chest pain. She reportedly began having 10 crushing generalized chest pain at dinner that radiated down both arms alongside nausea and an episode of vomiting. She completed a heart catheterization that was negative approximately 9 months ago. Her DOTA platelets Plavix and aspirin therapy was stopped with GI bleed and r ecent clear hospitalization. Lab work showed normal troponin and a BNP of 618, hemoglobin of 8.6 with normal platelets. Occult blood was negative in the ED as well as respiratory panel. Chest x-ray showed hyper inflation consistent with her chronic COPD alongside borderline cardiomegaly. CT angio of the abdomen pelvis and chest completed showed a smallsolitary peripheral left lower lobe embolus with mild cardiomegaly without signsof effusion or pulmonary edema. EKG shows subtle ST elevation in V1 V2 and minimal depression in V5 V6 Dr. Workman cardiology deferred heparinization. She was admitted for pulmonary embolus. I reviewed her hospital course summary from her discharge paperwork from [facility].She was admitted for gastrointestinal bleed for which she underwent an EGD that revealed? With possible an opening to the pylorus which was treated with epinephrine and x 2 hemoclips. She also had scattered small erosions and a 3 x 4 mm clean-based ulcer. She was started on Carafate and Protonix. She did require 1 unit of packed red blood cells due to her hemoglobin reaching 6.9. Repeat EGD on January 16 showed a nonbleeding gastric ulcer with clips. She also had left lower extremity cellulitisthat have resolved on a 10-day course of antibiotics. During this hospitalization she also underwent an EEG for altered mental status that showed left temporal dysfunction and diffuse encephalopathy.She also had a UTI positive for Klebsiella ESBL positive sensitive to Macrobid treated on Macrobid.She had been recommended PT OT at this discharge but went home. The patient was able to only provide limited history today due to her somnolence. She was able to attest to her recent GI bleed at [facility] and does know that she was told to stop her blood thinner. She says that she has been feeling weak at home. She denies any instances of extremity p ain or swelling within the last few days. She denies any acute chest pain or shortness of breath for now and says that it has improved since the beginning ofher hospitalization. She says that she is hungry. She otherwise is unable to answer any of my questions but denies any other new symptoms or complaints at this time. cc:: CC: Luis Fernando Strauss MD Data of Consult Consult date: 01/20/2024 Reason for consult general surgery: other (IVC filter placement) Requesting Physician: Luis Fernando Strauss MD Review of Systems Review of Systems All other systems reviewed & are negative unless noted below or in HPI [facility] Medical History (Updated 01/21/24 @ 11:56 by Gordo Naqvi MD, RES) Heart failure Vascular disease Oxygen dependent COPD (chronic obstructive pulmonary disease) Surgical History (Updated 01/20/24 @ 14:47 by Natalia Murrell DO) H/O heart artery stent x5 Social History Smoking Status: Current every day smoker Tobacco Type: cigarettes Substance Use Type: None Allergies & Active Medications Medications and Allergies Allergies codeine Allergy (Verified 01/19/24 16:45) Hives Exam Physical Exam Vital Signs: Temp Pulse Resp BP Pulse Ox O2 Del Method O2 Flow Rate 98.1 F 57 L 18 113/58 L 96 Nasal Cannula 4 01/20/24 12:24 01/20/24 12:24 01/20/24 12:24 01/20/24 12:24 01/20/24 12:24 01/20/24 12:24 01/20/24 12:24 Const General: comfortable, no acute distress and other (Somnolent) Nutritional Appearance: average body habitus Orientation: other (Somnolent) Resp Effort & Inspection: normal respiratory effort and able to speak in complete sentences Cardio Other: No notable edema or erythema of bilateral upper or lower extremities. GI Other: No abdominal tenderness. Skin Other: Scattered senile purpura over bilateral forearms. No erythema, active bleeding,or signs of open wounds. Neuro General: other (Somnolent) Extrem General: no calf tenderness Psych Appearance: disheveled Mental Status: other (Altered mental status) Results - Vascular Surgery Labs 01/22/24 07:10 01/22/24 07:10 Labs: Laboratory Results - last 24 hr 01/19/24 01/19/24 01/19/24 16:42 17:24 19:50 Corrected WBC 7.4 Uncorrected WBC Count 7.4 RBC 2.81 L Hgb 8.6 L Hct 26.3 L MCV 93.7 MCH 30.7 MCHC 32.8 RDW 20.5 H Plt Count 282 MPV 7.7 Neut % (Auto) 73.1 Lymph % (Auto) 16.0 [place] % (Auto) 7.0 Eos % (Auto) 2.2 Baso % (Auto) 1.7 Nucleat RBC Rel Count 0.1 Neut # (Auto) 5.4 Lymph # (Auto) 1.2 [place] # (Auto) 0.5 Eos # (Auto) 0.2 Baso # (Auto) 0.1 Monocyte Dist Width 20.14 H PT 10.4 INR 0.9 APTT 31.2 PHA Creatinine Clear 56.97 Sodium 138 Potassium 3.5 Chloride 97 L Carbon Dioxide 30.7 Anion Gap 13.8 BUN 11 Creatinine 0.87 Est GFR (CKD-EPI) > 60.0 Glucose 173 H Lactic Acid Calcium 8.7 Phosphorus Magnesium Iron TIBC Iron Saturation Transferrin Ferritin Total Bilirubin AST ALT Alkaline Phosphatase Total Creatine Kinase 32 Troponin I High Sens 13.7 14.7 B-Natriuretic Peptide 618.0 H Total Protein Albumin Globulin Albumin/Globulin Ratio Vitamin B12 Folate TSH 3rd Generation COVID-19 Clin Com Not detected 01/19/24 01/19/24 01/20/24 21:07 23:07 01:40 Corrected WBC 7.0 6.1 Uncorrected WBC Count 7.0 6.1 RBC 2.63 L 2.54 L Hgb 8.0 L 7.7 L Hct 24.3 L 23.6 L MCV 92.4 92.7 MCH 30.4 30.4 MCHC 32.9 32.8 RDW 19.7 H 20.2 H Plt Count 251 245 MPV 7.7 7.3 Neut % (Auto) 70.9 67.9 Lymph % (Auto) 19.2 19.9 [place] % (Auto) 6.8 7.9 Eos % (Auto) 2.2 2.5 Baso % (Auto) 0.9 1.8 Nucleat RBC Rel Count 0.2 0.1 Neut # (Auto) 5.0 4.2 Lymph # (Auto) 1.3 1.2 [place] # (Auto) 0.5 0.5 Eos # (Auto) 0.2 0.2 Baso # (Auto) 0.1 0.1 Monocyte Dist Width 23.33 H PT INR APTT PHA Creatinine Clear Sodium Potassium Chloride Carbon Dioxide Anion Gap BUN Creatinine Est GFR (CKD-EPI) Glucose Lactic Acid 0.8 Calcium Phosphorus Magnesium Iron TIBC Iron Saturation Transferrin Ferritin Total Bilirubin AST ALT Alkaline Phosphatase Total Creatine Kinase Troponin I High Sens 15.4 H 8.4 B-Natriuretic Peptide Total Protein Albumin Globulin Albumin/Globulin Ratio Vitamin B12 Folate TSH 3rd Generation Edufii 01/20/24 04:06 Corrected WBC 5.7 Uncorrected WBC Count 5.7 RBC 2.53 L Hgb 7.7 L Hct 23.6 L MCV 93.4 MCH 30.4 MCHC 32.6 RDW 20.9 H Plt Count 237 MPV 7.7 Neut % (Auto) 65.9 Lymph % (Auto) 20.4 [place] % (Auto) 9.3 Eos % (Auto) 2.9 Baso % (Auto) 1.5 Nucleat RBC Rel Count 0.2 Neut # (Auto) 3.7 Lymph # (Auto) 1.2 [place] # (Auto) 0.5 Eos # (Auto) 0.2 Baso # (Auto) 0.1 Monocyte Dist Width PT INR APTT PHA Creatinine Clear 69.96 Sodium 138 Potassium 3.7 Chloride 100 Carbon Dioxide 32.6 H Anion Gap 9.1 BUN 9 Creatinine 0.79 Est GFR (CKD-EPI) > 60.0 Glucose 96 Lactic Acid Calcium 8.3 L Phosphorus 4.2 Magnesium 1.8 L Iron 24 L TIBC 232 L Iron Saturation 10.3 L Transferrin 166 L Ferritin 338.7 H Total Bilirubin 0.3 AST 15 ALT 13 Alkaline Phosphatase 155 H Total Creatine Kinase Troponin I High Sens B-Natriuretic Peptide Total Protein 5.5 L Albumin 2.9 L Globulin 2.6 Albumin/Globulin Ratio 1.1 Vitamin B12 398 Folate 6.5 TSH 3rd Generation 3.03 COVIDGient Com PT 10.4 Seconds (9.0-12.9) 01/19/24 16:42 APTT 31.2 Seconds (25.1-36.5) 01/19/24 16:42 Microbiology Microbiology: 01/19/24 18:20 Stool Stool Occult Blood (JESS) - Final 01/19/24 17:24 Nasopharyngeal Respiratory Panel (PCR) - Final A&P - Vascular (1) CAD (coronary artery disease): (2) Hypotension: (3) Chest pain: (4) Pulmonary emboli: (5) Hypoxia: (6) H/O heart artery stent: Plan [facility], altered mental status investigated by EEG, and UTI which was treated on Macrobid. Her EGD during thishospitalization she had a large vessel opening to the pylorus that had to be injected with epinephrine and Hemoclip twice. She subsequently had a drop in hemoglobin to 6.9 requiring 1 unit of packed red blood cells. A repeat EGD by gastroenterology on January 16 showed a nonbleeding gastric ulcer previously clipped. Her CTA chest abdomen pelvis showed a peripheral pulmonary embolism and her ultrasound of the lower extremities investigating DVT was negative. I spoke with Dr. Milton Rosenberg local gastroenterology who recommended increasing her proton pump inhibitorto 40 mg twice daily and trial anticoagulation. I willrecommend Eliquis with Aspirin with serial hemoglobin and hematocrit monitoring. If there is evidence of rebleeding, we may proceed to an IVC filter. This is Dr. Guo. I did see and evaluate this patient on the initial dateof consult. I also spoke with our county coroner Dr. Milton rosenberg. The plan will be for a trial of blood thinners and doubling the proton pump inhibitor inhibitor. If she fails this we will place a filter. Documented By: Artur Guo MD 01/20/24 1547 Signed By: <Electronically signed by Artur Guo MD> 01/22/24 1441 <Electronically signed by HILDA Joyce> 01/21/24 0600 [facility] Work Phone: 1([phone]) 105-192010-22-2024 Progress note Author Luis Fernando [facility] January 21, 2024 1:37pmNote Date/TimeOctober 2023 12:[place] [address] Hospitalist Progress Note Signed Patient: Jonatan Olivarez MR#: [id number] : 1960 Acct:[id number] Age/Sex: 63 / F Adm Date: 4 Loc: Room: [address] [place] [address] Type: ADM IN Attending Dr: Luis Fernando Strauss MD Copies to: ~ Date of Service: 01/21/2024 Subjective Subjective Narrative: Jonatan was examined this morning bedside resting comfortably. She is alert andoriented able to provide some history regarding her past hospitalization. She does recall having fallen at home landing on her face and left backside while ambulating with walker. States she has required walker/rolator assistance sinceshe had covid. She does request pain medication states her primary care doctor gives her two 10 mg oxycodone a day and that we act like it is a big deal here. Not yet assessed by PT/OT.Does complain of left-sided posterior rib pain otherwise regular BMs and focused ROS negative. Exam Physical Exam Vital Signs: Temp Pulse Resp BP Pulse Ox O2 Del Method O2 Flow Rate 97.9 F 68 18 123/64 100 Nasal Cannula 2 01/21/24 08:00 01/21/24 08:00 01/21/24 08:00 01/21/24 08:00 01/21/24 08:00 01/21/24 08:00 01/21/24 08:00 Narrative: Constitutional: Frail, somewhat cachectic elderly WF, seating upright in bed, conversant HEENT: Moist mucous membranes, neck supple, no JVD Cardiovascular: RRR, no M/R/G, normal S1 and S2 Respiratory: Coarse crackles heard bilaterally, breathing nonlabored, diminishedthroughout, no wheezes, rales or rhonchi GI: Soft, NTND, NABS : Deferred Extremities: Thin extremities, patient able to move all extremities without significant issue, anasarca Neuro: AAO times person, able to follow commands when asked. No clear focal deficits Skin: Diffuse bruisability, no rashes or lesions noted upon anterior inspection Psych: Calm, but easily irritable Objective Lab Results 01/20/24 04:06 01/20/24 04:06 Meds Allergies and Active Meds Allergies codeine Allergy (Verified 01/19/24 16:45) Hives Active Meds: Active Medications Generic Name Dose Route Start Last Admin Trade Name Cleopatra PRN Reason Stop Dose Admin Acetaminophen 325 mg 01/19/24 20:44 01/20/24 21:07 Acetaminophen 325 Mg Tablet PO 01/18/25 20:43 325 mg Q8HR PRN Administration pain Aspirin 81 mg 01/20/24 09:00 Aspirin 81 Mg Tablet.Dr PO 01/19/25 08:59 DAILY NEENA Enoxaparin Sodium 60 mg 01/21/24 12:00 Enoxaparin 60 Mg/0.6 Ml Syringe SUBCUT 01/20/25 11:59 Q12HR.10A.10P NEENA Gabapentin 300 mg 01/21/24 11:20 01/21/24 11:27 Gabapentin 300 Mg Capsule PO 01/20/25 11:19 300 mg TID NEENA Administration Isosorbide Mononitrate 60 mg 01/20/24 09:00 01/21/24 08:41 Isosorbide Mononitrate 24hr Er 60 Mg Tab.Er.24h PO 01/19/25 08:59 60 mg DAILY NEENA Administration Levothyroxine Sodium 150 mcg 01/20/24 06:30 01/21/24 05:32 Levothyroxine 150 Mcg Tablet PO 01/19/25 06:29 150 mcg DAILY.0630 NEENA Administration Metoprolol Succinate 25 mg 01/20/24 09:00 01/21/24 08:41 Metoprolol Succinate 25 Mg Tab.Er.24h PO 01/19/25 08:59 25 mg DAILY NEENA Administration Nicotine 1 each 01/21/24 10:40 01/21/24 11:17 Nicotine Patch 14 Mg/24hr 1 Each Patch.Td24 TRANSDERML 02/03/24 09:01 1 each DAILY NEENA Administration Oxycodone HCl 10 mg 01/19/24 20:43 01/20/24 06:17 Oxycodone Ir 5 Mg Tablet PO 10 mg Q8HR PRN Administration pain Pantoprazole Sodium 40 mg 01/19/24 21:00 01/21/24 08:41 Pantoprazole 40 Mg Vial IV-PUSH 01/18/25 20:59 40 mg BID NEENA Administration Quetiapine Fumarate 25 mg 01/20/24 09:00 01/20/24 08:59 Quetiapine Fumarate 25 Mg Tablet PO 01/19/25 08:59 25 mg DAILY NEENA Administration Sodium Chloride 0 ml 01/19/24 16:40 01/19/24 18:30 Sodium Chloride 0.9 % 10 Ml Syringe IV-PUSH 01/18/25 16:39 10 ml PRN PRN Administration Flush Sodium Chloride 0 ml 01/19/24 18:20 Sodium Chloride 0.9 % 10 Ml Syringe IV-PUSH 01/18/25 18:19 PRN PRN Flush Sodium Chloride 10 ml 01/19/24 20:47 01/20/24 21:07 Sodium Chloride 0.9 % 10 Ml Vial.Pf INJECTION 01/18/25 20:46 10 ml PRN PRN Administration Dilution Sodium Chloride 10 ml 01/19/24 20:47 Sodium Chloride 0.9 % 10 Ml Syringe IV-PUSH 01/18/25 20:46 PRN PRN Flush Sucralfate 1 gm 01/20/24 00:00 01/21/24 11:18 Sucralfate Susp 1 Gm/10 Ml Udc PO 01/19/25 00:00 1 gm Q6HR NEENA Administration A&P - Hospitalist Assessment/Plan (1) CAD (coronary artery disease): (2) Pulmonary emboli: (3) Anemia: Plan Atypical Chest pain with HEART score of 5 Peripheral left lower lobe PE with no evidence of right heart strain Significant past medical history of CAD with prior PCI Reportedly had chest pain at the [facility] prior to arrival. Patient recently had stents placed. Was also hypotensive on presentation. CT of the chest did demonstrate small subsegmental PE of left lower lobe and possibly right upper lobe. Risk vs benefit to starting anticoagulation discussed in depth given recent gastric ulcers. Patient did complete single 60 mg trial dose of Lovenox in anticipation of future anticoagulation. -appreciate cardiology assessment of chest pain negative for ACS with recommendation to resume single antiplatelet -appreciate vascular recommendation to resume anticoagulation with Aspirin and place IVC filter if tolerating blood thinners -Continue aspirin and start lovenox daily Recent Upper GI bleeding, reportedly due to Gastric ulcer Reportedly had a large vessel opening to the pylorus that had to be injected with epinephrine and Hemoclip twice. Hemoglobin is low at 7.7 x2. No evidence of bleeding noted on exam at this time. FOBT was negative -Continue PPI IV twice daily -Monitor CBC closely -discontinue subcu heparin as DVT prophylaxis addressed above Hypotension likely due to Dehydration Submassive or Massive PE is unlikely. Monitoring closely in ICU for now. Acute on chronic Hypoxic Respiratory Failure due to COPD on 2 L Nasal Cannula atHome Now requiring 2 L nasal cannula at the moment. Some coarse sounds in lower lungfields bilaterally most likely due to emphysematous changes in current smoker with >70 PY cigarette smoke history -Supplemental O2 as needed; wean O2 as tolerated Ventral Abdominal Hernia Does not appear to have acute abdomen abdominal exam at this time. General surgery was consulted byadmitting physician. I did cancel this, as there are noongoing issues with BMs or PO intake. Patient is hungry and notes no abdominal pain Chronic pain syndrome, unspecified Patient has chronic pain which she takes oxycodone for on a daily basis. She ritesh high doses of gabapentin, was discharged on 3 days of Lyrica on 01/18/2024, takes Percocet 4 times daily chonically. -continue gabapentin, Percocet; hold Lyrica Dyslipidemia Hypertension CODE STATUS: FULL CODE Dr. Strauss Attestation: Patient was personally seen by me on the day of encounter. I reviewed her history and performed keyelements of exam and formulated the plan of care and confirmed the resident's note above. Plan of care reflects my direct input. Patient was upset overnight that many of her sedating medications wereheld. Will restart gabapentin and oxycodone to ensure patient does not go into withdrawal at this time. She was essentially somnolent and not able to respond throughout the day yesterday after receiving multiple sedating meds. We will restart these slowly. In addition, will attempt a trial of full dose subcu Lovenox along with aspirin. Monitor CBC as noted above. We will continue to discuss case with pulmonary, vascular for anticoagulant management. Documented By: Luis Fernando Strauss MD [id number] Signed By: <Electronically signed by Luis Fernando Strauss MD> 01/21/24 1337 <Electronically signed by MD IDALMIS Naqvi> 01/21/24 1216 [facility] Work Phone: 1(272) 348-701110-22-2024 Progress note Author Ziggy [facility] January 21, 2024 11:18amNote Date/TimeOct2023 11:12[place] [id number] Pulmonology Progress Note Signed Patient: Jonatan Olivarez MR#: [id number] : 1960 Acct:[id number] Age/Sex: 63 / F Adm Date: 4 Loc: Room: [address] [place] [address] Type: ADM IN Attending Dr: Luis Fernando Strauss MD Copies to: ~ Date of Service: 01/21/2024 Subjective Subjective Narrative: Patient is much more awake and alert today. She inquires as to when she can be discharged to home with patient getting all her care in [facility]. Exam Physical Exam Vital Signs: Temp Pulse Resp BP Pulse Ox O2 Del Method O2 Flow Rate 97.9 F 68 18 123/64 100 Nasal Cannula 2 01/21/24 08:00 01/21/24 08:00 01/21/24 08:00 01/21/24 08:00 01/21/24 08:00 01/21/24 08:00 01/21/24 08:00 Const Nutritional Appearance: average body habitus Orientation: alert and awake HEENT Head: normal to inspection Ears: external ears normal Nose: external nose normal Face and sinus: normal facial exam Eyes Sclera: sclerae normal Neck Neck: normal visual inspection Chest Chest palpation & inspection: normal inspection of the chest Resp Effort & Inspection: normal respiratory effort Auscultation: clear to auscultation bilaterally, diminished lung sounds, no rales, no rhonchi and no wheezes Cardio Rate: regular rate Rhythm: regular rhythm Heart Sounds: S1 normal, S2 normal and no murmurs GI Palpation: soft and nontender General: deferred Skin General: no rashes or lesions noted (Warm and dry) Extrem General: no pedal edema Objective Intake and Output I&O - Last 24 Hours: Intake & Output 01/20/24 01/21/24 01/21/24 23:59 07:59 15:59 Intake Total 200 / 550 100 / 100 Balance 200 / 550 100 / 100 Weight 139 lb 1.787 oz Labs 01/20/24 04:06 01/20/24 04:06 Assessment/Plan Assessment/Plan (1) Pulmonary emboli: (2) Chest pain: (3) CAD (coronary artery disease): Plan Hospital day #2 for patient admitted with complaints of chest pain with incidental finding of left lower lobe subsegmental pulmonary embolism on CT arteriogram of the thorax with patient having no significant respiratory or hemodynamic manifestations of pulmonary embolism. Recommendations of cardiol ogyand vascular surgery noted with patient resumed on baby aspirin and started on apixaban as per vascular surgery. * Recommendations for resuming anticoagulation with intensification of therapy of peptic ulcer disease was discussed at length with the patient. Discussed need for close follow-up to ensure no further bleeding. Patient's primary concern is getting her pain medications at the time of my visit. * The patient will need close follow-up to evaluate for any further evidence of bleeding/anemia which may warrant IVC filter placement. * We will start patient on anticoagulation with Lovenox to determine if patient has significant bleeding before proceeding with apixaban. Documented By: Ziggy Barraza MD [id number] Signed By: <Electronically signed by MD Ziggy Barraza> 01/21/24 1113 [facility] Work Phone: 1(780) 213-219110-21-2024 Consult note Author Natalia Murrell [facility] January 20, 2024 2:48pmNote Date/TimeOct2023 2:40[place] [address] Cardiology Consult Note Signed Patient: Jonatan Olivarez MR#: [id number] : 1960 Acct:[id number] Age/Sex: 63 / F Adm Date: 4 Loc: Room: [address] [place] [address] Type: ADM IN Attending Dr: Luis Fernando Strauss MD Copies to: NON STAFF MD Natalia Meza, DO~ Cardiology HPI History of Present Illness Consult Date: 01/20/24 Reason for Consult: Chest pain, shortness of breath, subsegmental PE, ASHD HPI: Ms. Olivarez is a 63 year old female seen in interventional cardiology consultation at request of ERattending and hospitalist this morning and patientwho presents with chest pain and shortness of breath syndrome, hypotension. Workup included CTA?pulmonary embolism protocol revealing very small subsegmental left lower lobe pulmonary embolism and possibly right upper lobe small subsegmental PE as well by my review. There is no RV dilatation there is no main or segmental pulmonary emboli in the main segments. ECG is benign basically sinus rhythm with RSR prime with 1 PVC, CTA, as described above, troponins negative x 2; and hemoglobin 7.7 (iron deficiency) Patient was recently evaluated for GI bleed in [place] as described in the EMR Patient has known coronary artery disease with previous PCI's details of which are unavailable and recent heart catheterization 8 to 9 months ago with no intervention in [place]. Patient is a very poor historian, falling asleep in the chair during my inspection and examination however arousable Impression/recommendations: No evidence of acute coronary syndrome or heart failure; very small left lower lobe subsegmental pulmonary embolism (possible artifact). Personally I do not believe she warrants anticoagulation at this juncture (due to risk of GI bleeding/progressive anemia) unless she has a large thrombotic burden discovered on duplex venous imaging.I concur that dual antiplatelet therapy can be withheld temporarily, and reinitiated with single agent, preferably clopidogrel alone. In fact, she may not warrant antiplatelet therapyany further if her revascularization procedures were greater than 12 months ago. [facility] Medical History (Updated 01/20/24 @ 14:47 by Natalia Murrell DO) Heart failure Vascular disease Oxygen dependent COPD (chronic obstructive pulmonary disease) Surgical History (Updated 01/20/24 @ 14:47 by Natalia Murrell DO) H/O heart artery stent x5 Social History Smoking Status: Current every day smoker Tobacco Type: cigarettes Substance Use Type: None Meds Medications and Allergies Allergies codeine Allergy (Verified 01/19/24 16:45) Hives Home Medications aspirin 81 mg tablet,delayed release (Adult Low Dose Aspirin) 81 mg PO DAILY 01/19/24 [History Confirmed 01/19/24] clopidogrel 75 mg tablet (Plavix) 75 mg PO DAILY 01/19/24 [History Confirmed 01/19/24] gabapentin 800 mg tablet 800 mg PO QID 01/19/24 [History Confirmed 01/19/24] ibuprofen 800 mg tablet (IBU) 800 mg PO TID PRN pain 01/19/24 [History Confirmed 01/19/24] isosorbide mononitrate 60 mg tablet,extended release 24 hr 60 mg PO DAILY 01/19/24 [History Confirmed 01/19/24] levothyroxine 150 mcg tablet (Synthroid) 150 mcg PO DAILY 01/19/24 [History Confirmed 01/19/24] metoprolol succinate 25 mg tablet,extended release 24 hr 25 mg PO DAILY 01/19/24[History Confirmed 01/19/24] oxycodone-acetaminophen 10 mg-325 mg tablet 1 tab PO Q8HR PRN pain 01/19/24 [History Confirmed 01/19/24] pantoprazole 40 mg tablet,delayed release 40 mg PO BID 01/19/24 [History Confirmed 01/19/24] pregabalin 150 mg capsule (Lyrica) 150 mg PO BID 01/19/24 [History Confirmed 01/19/24] pt unable to verify home meds at this time 01/19/24 [History] quetiapine 25 mg tablet (Seroquel) 25 mg PO DAILY 01/19/24 [History Confirmed 01/19/24] sucralfate 100 mg/mL oral suspension (Carafate) 10 ml PO Q6HR 01/19/24 [History Confirmed 01/19/24] Exam Physical Exam Vital Signs: Temp Pulse Resp BP Pulse Ox O2 Del Method O2 Flow Rate 98.1 F 57 L 18 113/58 L 96 Nasal Cannula 4 01/20/24 12:24 01/20/24 12:24 01/20/24 12:24 01/20/24 12:24 01/20/24 12:24 01/20/24 12:24 01/20/24 12:24 Const General: comfortable, no acute distress and lethargic Nutritional Appearance: average body habitus Orientation: awake and not oriented x3 Limitations: altered mental status HEENT Head: normal to inspection Resp Effort & Inspection: normal respiratory effort Auscultation: clear to auscultation bilaterally Cardio Rate: regular rate Rhythm: regular rhythm Heart Sounds: S1 normal and S2 normal GI Palpation: soft Skin General: ecchymosis Neuro General: not alert, patient awake (Hypersomnolent) and not oriented x3 Cognition: abnormal cognition Speech: abnormal speech Extrem General: no clubbing, cyanosis or edema Results - Cardiology Labs 01/20/24 04:06 01/20/24 04:06 Lab results: Cardiac Enzymes 01/19/24 01/20/24 Range/Units 16:42 04:06 AST 15 (13-39) U/L Total Creatine Kinase 32 (30-223) U/L B-Natriuretic Peptide 618.0 H (5-100) pg/mL CBC 01/19/24 01/19/24 01/19/24 Range/Units 16:42 21:07 23:07 RBC 2.81 L 2.63 L 2.54 L (3.60-5.00) X10E6/uL Hgb 8.6 L 8.0 L 7.7 L (11.8-15.4) g/dL Hct 26.3 L 24.3 L 23.6 L (34.0-46.4) % Plt Count 282 251 245 (150-450) x10E3/uL Neut # (Auto) 5.4 5.0 4.2 (1.8-7.7) x10E3/uL Lymph # (Auto) 1.2 1.3 1.2 (1.00-4.8) x10E3/uL [place] # (Auto) 0.5 0.5 0.5 (0.0-0.8) x10E3/uL Eos # (Auto) 0.2 0.2 0.2 (0.0-0.45) x10E3/uL Baso # (Auto) 0.1 0.1 0.1 (0.0-0.2) x10E3/uL 01/20/24 Range/Units 04:06 RBC 2.53 L (3.60-5.00) X10E6/uL Hgb 7.7 L (11.8-15.4) g/dL Hct 23.6 L (34.0-46.4) % Plt Count 237 (150-450) x10E3/uL Neut # (Auto) 3.7 (1.8-7.7) x10E3/uL Lymph # (Auto) 1.2 (1.00-4.8) x10E3/uL [place] # (Auto) 0.5 (0.0-0.8) x10E3/uL Eos # (Auto) 0.2 (0.0-0.45) x10E3/uL Baso # (Auto) 0.1 (0.0-0.2) x10E3/uL Comprehensive Metabolic Panel 01/19/24 01/20/24 Range/Units 16:42 04:06 Sodium 138 138 (136-145) mmol/L Potassium 3.5 3.7 (3.5-5.1) mmol/L Chloride 97 L 100 (98-107) mmol/L Carbon Dioxide 30.7 32.6 H (21.0-31.0) mmol/L BUN 11 9 (7-25) mg/dL Creatinine 0.87 0.79 (0.60-1.20) mg/dL Glucose 173 H 96 (70-100) mg/dL Calcium 8.7 8.3 L (8.6-10.3) mg/dL AST 15 (13-39) U/L ALT 13 (7-52) U/L Alkaline Phosphatase 155 H (34-104) U/L Total Protein 5.5 L (6.4-8.9) gm/dL Albumin 2.9 L (3.5-5.7) gm/dL Intake and Output 01/19/24 01/20/24 01/20/24 23:59 07:59 15:59 Intake Total 850 / 850 150 / 350 200 / 350 Balance 850 / 850 150 / 350 200 / 350 Intake: IV 700 / 700 Sodium Chloride 0.9% 1,000 ml 1 700 / 700 ,000 ml @ 100 mls/hr IV .Q10H [facility] Rx#:[id number] Oral 150 / 150 150 / 350 200 / 350 Other: # Voids 1 # Unmeasured Voids 3 2 # Incontinent Voids 1 # Bowel Movements 0 0 Weight 63.3 kg 63.3 kg Date of Last Bowel Movement 01/16/24 01/16/24 01/16/24 Patient Weight 01/20/24 23:59 Weight 63.3 kg Lab 01/19/24 16:42 PT 10.4 INR 0.9 APTT 31.2 EKG Interpretations EKG EKG results cardiology: WNL and sinus rhythm A&P - Cardiology (1) CAD (coronary artery disease): Code(s): I25.10 - Atherosclerotic heart disease of [place] coronary artery without angina pectoris (2) Hypotension: Code(s): I95.9 - Hypotension, unspecified (3) Chest pain: Code(s): R07.9 - Chest pain, unspecified (4) Pulmonary emboli: Code(s): I26.99 - Other pulmonary embolism without acute cor pulmonale (5) Hypoxia: Code(s): R09.02 - Hypoxemia (6) H/O heart artery stent: Code(s): Z95.5 - Presence of coronary angioplasty implant and graft Plan Continue workup for GI bleed Presently, no need for systemic anticoagulation or dual antiplatelet therapy at this moment Please obtain last cath report from outside hospital Documented By: Natalia Murrell DO 01/20/24 1438 Signed By: <Electronically signed by Natalia Murrell DO> 01/20/24 2263 [facility] Work Phone: 1(889) 868-910410-21-2024 Consult note Author Ziggy Barraza [facility] January 20, 2024 2:09pmNote Date/TimeOct2023 11:57[place] [address] Pulmonology Consult Note Signed Patient: Jonatan Olivarez MR#: [id number] : 1960 Acct:[id number] Age/Sex: 63 / F Adm Date: 4 Loc: Room: [address] [place] [address] Type: ADM IN Attending Dr: Luis Fernando Strauss MD Copies to: NON STAFF MD Luis Fernando Arevalo MD~ HPI Date/Time of Consultation: Date of Service: 01/20/2024 Time of Service: 11:51 Consulting Provider: Ziggy Barraza Requesting Provider: Luis Fernando Strauss History of Present Illness History of present illness: Ms. Olivarez is a 63 year old female seen at the request of the hospitalist service for pulmonary embolism with history of COPD. This is the patient's first visit to [facility] with patient living in [place] and reportedly getting some of her care in [facility]. Patient reportedly had been recently discharged from hospitalization in [place] with a bleeding ulcer. The patient also reportedly has a history of dual antiplatelet therapy which wasdiscontinued. Patient complained of severe chest pain over her whole chest areawith radiation down both arms with 1 episode of nauseaand vomiting with reported palpitations and dyspnea. She does have a reported prior history of coronary artery disease. Patient was reportedly hypotensive per EMS and was volume resuscitated and started on supplemental oxygen. Workup included CT arteriogram of the chest as well as abdomen and pelvis with subsegmental left lower lobe filling defect. Patient was admitted to the ICU with anticoagulat ionheld. Patient is sitting in chair and is a relatively poor historian. She indicates that her prior stent placements were remote and confirms recent hospitalization at [facility] forreported GI bleeding. She thinks she is at the [facility] but does report it is 2023. Review of Systems Review of Systems All other systems reviewed & are negative unless noted below or in HPI (though patient is poor historian) [facility] Medical History (Updated 01/19/24 @ 23:00 by Nabila Rao MD) Vascular disease Oxygen dependent COPD (chronic obstructive pulmonary disease) Surgical History (Updated 01/19/24 @ 16:50 by Lucille Cormier RN) H/O heart artery stent x5 Social History Smoking Status: Current every day smoker Tobacco Type: cigarettes Substance Use Type: None Meds Medications and Allergies Allergies codeine Allergy (Verified 01/19/24 16:45) Hives Home Medications aspirin 81 mg tablet,delayed release (Adult Low Dose Aspirin) 81 mg PO DAILY 01/19/24 [History Confirmed 01/19/24] clopidogrel 75 mg tablet (Plavix) 75 mg PO DAILY 01/19/24 [History Confirmed 01/19/24] gabapentin 800 mg tablet 800 mg PO QID 01/19/24 [History Confirmed 01/19/24] ibuprofen 800 mg tablet (IBU) 800 mg PO TID PRN pain 01/19/24 [History Confirmed 01/19/24] isosorbide mononitrate 60 mg tablet,extended release 24 hr 60 mg PO DAILY 01/19/24 [History Confirmed 01/19/24] levothyroxine 150 mcg tablet (Synthroid) 150 mcg PO DAILY 01/19/24 [History Confirmed 01/19/24] metoprolol succinate 25 mg tablet,extended release 24 hr 25 mg PO DAILY 01/19/24[History Confirmed 01/19/24] oxycodone-acetaminophen 10 mg-325 mg tablet 1 tab PO Q8HR PRN pain 01/19/24 [History Confirmed 01/19/24] pantoprazole 40 mg tablet,delayed release 40 mg PO BID 01/19/24 [History Confirmed 01/19/24] pregabalin 150 mg capsule (Lyrica) 150 mg PO BID 01/19/24 [History Confirmed 01/19/24] pt unable to verify home meds at this time 01/19/24 [History] quetiapine 25 mg tablet (Seroquel) 25 mg PO DAILY 01/19/24 [History Confirmed 01/19/24] sucralfate 100 mg/mL oral suspension (Carafate) 10 ml PO Q6HR 01/19/24 [History Confirmed 01/19/24] Exam Physical Exam Vital Signs: Temp Pulse Resp BP Pulse Ox O2 Del Method O2 Flow Rate 97.8 F 57 L 18 99/49 L 97 Nasal Cannula 4 01/20/24 08:00 01/20/24 09:54 01/20/24 08:00 01/20/24 09:54 01/20/24 09:42 01/20/24 09:42 01/20/24 09:42 Const Nutritional Appearance: average body habitus HEENT Head: normal to inspection Ears: external ears normal Nose: external nose normal Face and sinus: normal facial exam Eyes Sclera: sclerae normal Neck Neck: normal visual inspection Resp Effort & Inspection: normal respiratory effort Auscultation: clear to auscultation bilaterally, diminished lung sounds, no rales, no rhonchi and no wheezes Cardio Rate: regular rate Rhythm: regular rhythm Heart Sounds: S1 normal, S2 normal and no murmurs GI Palpation: soft and nontender General: deferred Skin General: no rashes or lesions noted (Warm and dry) Extrem General: no pedal edema Results - Pulmonology Intake and Output I&O - Last 24 Hours: Intake & Output 01/19/24 01/20/24 01/20/24 23:59 07:59 15:59 Intake Total 850 / 850 150 / 150 Balance 850 / 850 150 / 150 Weight 139 lb 8.842 oz 139 lb 8.842 oz Labs 01/20/24 04:06 01/20/24 04:06 Microbiology Micro: 01/19/24 18:20 Stool Occult Blood (JESS) - Final Stool 01/19/24 17:24 Respiratory Panel (PCR) - Final Nasopharyngeal Imaging and Cardiology Venous US: Additional comments: Technologist report reveals no evidence of superficial nor deep vein thrombosis bilaterally at thistime. Await final interpretation CT scan - chest: Status: image reviewed by me (CT arteriogram of thorax only) Additional comments: Date of Service: 01/19/24 CT/CT angio chest PE protocol: f ([id number]) CT/CT abdomen pelvis w con: f CLINICAL DATA: Intermittent chest pain and arm pain today . Recent history of bleeding ulcer. CT PULMONARY ANGIOGRAM WITH CONTRAST COMPARISON: None TECHNIQUE: Spiral images were obtained through the chest following intravenous administration of 90mL of Isovue 370. Images were reviewed using both narrow and wide window settings. Sagittal, coronal and 3 D volume-rendered reconstructions were performed and reviewed. This CT exam was performed using one or more following dose reduction techniques: Automated exposure control, adjustment of the mA and/or kV according to patient size, or use of iterative reconstruction technique. FINDINGS: The heart is slightly prominent. There is no pericardial effusion. Coronary artery disease is seen. No aortic aneurysm or dissection is identified. There is atherosclerotic plaque involvingthe aorta and proximal great vessels. The pulmonary arteries prominent. There is adequate opacification of the pulmonary arteries. There is an intraluminal filling defect involving a subsegmental pulmonary artery branch to the left lower lobe which may be a small isolated embolus. No additional pulmonary emboli are identified. There are prevascular, paratracheal and AP window lymph nodes. There are smaller nodes at the heather. Mild degenerative changes are present at the spine.. Minor apical scarring is noted. There is also atelectasis or scarring at the bases. There is no focal consolidation, pleural effusion or pneumothorax. A punctate nodular density is visualized at the right apex, too small to further characterize. CT/CT angio chest PE protocol IMPRESSION: POTENTIAL SMALL SOLITARY PERIPHERAL LEFT LOWER LOBE PULMONARY EMBOLUS. SCARRING OR ATELECTASIS. MILD CARDIOMEGALY. NONSPECIFIC LYMPH NODES. Comment: Findings were discussed with Dr. Grimaldo [place] [address] ABDOMEN AND PELVIS WITH CONTRAST COMPARISON: None Spiral images were obtained through the abdomen pelvis following 90 mL Isovue- 370. This CT exam wasperformed using one or more following dose reduction techniques: Automated exposure control, adjustment of the mA and/or kV accordingto patient size, or use of iterative reconstruction technique. No intrahepatic masses are identified. There is intra and extrahepatic biliary dilatation, without common duct stones. This may relate to previous cholecystectomy. The spleen and pancreas show no acute findings. Bilateral adrenal nodularity is present right measuring 1.7 cm and left 2.1 cm. The righ tkidney is atrophic. The nephrograms are symmetric. No hydronephrosis is seen. There is prominent atherosclerotic plaque involving the aorta and iliac arteries. There is aorto bifemoral bypass grafting. There are tiny lymph nodes. No ascites is seen. There is a large anterior abdominal ventral hernia with widemouth containing transverse colon and nondistended small bowel loops. The intra-abdominal small bowel loops are normal caliber. There is mild stool throughout the colon. Reverse S-shaped thoracal lumbar scoliotic curvature and degenerative changes are seen at the spine. There is slight anterolisthesis of L2 with respect to adjacent vertebra. Images through the pelvis show normal caliber small bowel loops. No appendicealinflammation is seen. There is mild distal colonic stool. No diverticular disease is noted. There is suggestion of a metallic clip within the cecum. Theuterus appears to be surgically absent. No urinary bladder abnormalit ies are seen. A femorofemoral bypass graft is noted. There is also a stent at the leftupper thigh and hemostasis clips in the groin region bilaterally. No ascites isseen. A subcutaneous soft tissue nodule is present in the left paraumbilical region, approximately 2.4 cm in size. This might be a sebaceous cyst. There isprominent degenerative change at the right hip. IMPRESSION: BILIARY DILATATION THAT PROBABLY RELATES TO PREVIOUS CHOLECYSTECTOMY. BILATERAL ADRENAL NODULARITY. THERE ARE NO PRIORS TO ASSESS STABILITY ATROPHIC RIGHT KIDNEY. LARGE ANTERIOR ABDOMINAL WALL HERNIA CONTAINING COLON AND NONDISTENDED SMALL BOWEL. NO BOWEL OR URINARY TRACT OBSTRUCTION. NO OTHER ACUTE FINDINGS. Assessment/Plan (1) Pulmonary emboli: (2) Chest pain: (3) CAD (coronary artery disease): Plan Hospital day # 1 patient admitted with complaints of chest pain with incidental finding of left lower lobe subsegmental pulmonary embolism on CT arteriogram of the thorax with patient having no significant respiratory or hemodynamic manifestations of pulmonary embolism. Unfortunately, patient has reported priorhistory of gastrointestinal bleed though is poor historian. * Agree with obtaining prior records from [facility] regarding concerns for gastrointestinal bleeding * Obtain venous Dopplers of the lower extremities for risk stratification * Consult vascular surgery regarding their opinion for IVC filter placement given presence of venous thromboembolism with patient poor candidate for anticoagulation at this point given history of GI bleed * Case discussed with hospitalist service. Documented By: Ziggy Barraza MD 4 [id number] Signed By: <Electronically signed by MD Ziggy Barraza> 01/20/24 6000 [facility] Work Phone: 1(678) 353-981410-21-2024 Progress note Author Luis Fernando Strauss [facility] January 20, 2024 12:32pmNote Date/TimeOct2023 11:42[place] [address] Hospitalist Progress Note Signed Patient: Jonatan Olivarez MR#: [id number] : 1960 Acct:[id number] Age/Sex: 63 / F Adm Date: 4 Loc: Room: [address] [place] [address] Type: ADM IN Attending Dr: Luis Fernando Strauss MD Copies to: ~ Date of Service: 01/20/2024 Subjective Subjective Narrative: I did discuss patient with bedside RN, who informs me that patient has been verysleepy since receiving her morning medications. She did receive her Percocet early this a.m. at around 6 in the morning. She had not been complaining of further episodes of chest pain or dyspnea. She has been very sleepy and difficult to arouse since receiving her morning Lyrica 150 mg, gabapentin 600 mg, Seroquel 25 mg, this a.m. Vital signs have remained stable, patient has hadborderline hypotension with systolicsin the 90s. Home medications and not beenable to be verified by patient, as she is not exactly clear what she takes. Shedid complain of having difficulty ambulating at home. She was just discharged 2days ago from [facility] for upper GI ulcers from what I understand. She is maintained on aspirin only at this time, due to cardiac stents in the past few months, but did have recent bleeding complication and was discharged 2 days ago, and was sent on single antiplatelet therapy after that hospitalization Exam Physical Exam Vital Signs: Temp Pulse Resp BP Pulse Ox O2 Del Method O2 Flow Rate 97.8 F 57 L 18 99/49 L 97 Nasal Cannula 4 01/20/24 08:00 01/20/24 09:54 01/20/24 08:00 01/20/24 09:54 01/20/24 09:42 10/21/24 09:42 01/20/24 09:42 Narrative: Constitutional: Frail, somewhat cachectic elderly WF, sitting in chair at bedside, sleeping, able to be aroused with name call and can follow commands andanswer simple yes/no questions, but falls asleep unless there is significant prompting HEENT: Moist mucous membranes, neck supple, no JVD Cardiovascular: RRR, no M/R/G, normal S1 and S2 Respiratory: Nonlabored, diminished throughout, no wheezes, rales or rhonchi GI: Soft, NTND, NABS : Deferred Extremities: Thin extremities, patient able to move all extremities without significant issue Neuro: AAO times person, but very sleepy on my assessment, but able to follow commands when asked. No clear focal deficits Skin: No rashes or lesions noted upon anterior inspection Psych: Calm, but essentially sleeping through much of my assessment Objective Lab Results 01/20/24 04:06 01/20/24 04:06 Microbiology Results Microbiology 01/19/24 18:20 Stool Stool Occult Blood (JESS) - Final 01/19/24 17:24 Nasopharyngeal Respiratory Panel (PCR) - Final Meds Allergies and Active Meds Allergies codeine Allergy (Verified 01/19/24 16:45) Hives Active Meds: Active Medications Generic Name Dose Route Start Last Admin Trade Name Cleopatra PRN Reason Stop Dose Admin Acetaminophen 325 mg 01/19/24 20:44 Acetaminophen 325 Mg Tablet PO 01/18/25 20:43 Q8HR PRN pain Aspirin 81 mg 01/20/24 09:00 Aspirin 81 Mg Tablet. PO 01/19/25 08:59 DAILY NEENA Gabapentin 600 mg 01/19/24 22:00 01/20/24 08:59 Gabapentin 600 Mg Tablet PO 01/18/25 21:59 600 mg TID NEENA Administration Heparin Sodium (Porcine) 5,000 unit 01/19/24 22:00 01/20/24 06:17 Heparin 5,000 Unit/Ml Vial SUBCUT 01/18/25 21:59 5,000 unit Q8HR NEENA Administration Magnesium Sulfate 4 gm in 100 mls @ 25 mls/hr 01/20/24 08:02 01/20/24 09:00 Magnesium Sulf 4 Gm-*Swfi* IV 01/20/24 12:01 25 mls/hr ONCE ONE Administration Isosorbide Mononitrate 60 mg 01/20/24 09:00 01/20/24 09:00 Isosorbide Mononitrate 24hr Er 60 Mg Tab.Er.24h PO 01/19/25 08:59 60 mg DAILY NEENA Administration Levothyroxine Sodium 150 mcg 01/20/24 06:30 01/20/24 06:17 Levothyroxine 150 Mcg Tablet PO 01/19/25 06:29 150 mcg DAILY.0630 NEENA Administration Metoprolol Succinate 25 mg 01/20/24 09:00 01/20/24 08:59 Metoprolol Succinate 25 Mg Tab.Er.24h PO 01/19/25 08:59 25 mg DAILY NEENA Administration Oxycodone HCl 10 mg 01/19/24 20:43 01/20/24 06:17 Oxycodone Ir 5 Mg Tablet PO 10 mg Q8HR PRN Administration pain Pantoprazole Sodium 40 mg 01/19/24 21:00 01/20/24 08:59 Pantoprazole 40 Mg Vial IV-PUSH 01/18/25 20:59 40 mg BID NEENA Administration Pregabalin 150 mg 01/19/24 21:00 01/20/24 08:59 Pregabalin 150 Mg Capsule PO 07/17/24 20:59 150 mg BID NEENA Administration Quetiapine Fumarate 25 mg 01/20/24 09:00 01/20/24 08:59 Quetiapine Fumarate 25 Mg Tablet PO 01/19/25 08:59 25 mg DAILY NEENA Administration Sodium Chloride 0 ml 01/19/24 16:40 01/19/24 18:30 Sodium Chloride 0.9 % 10 Ml Syringe IV-PUSH 01/18/25 16:39 10 ml PRN PRN Administration Flush Sodium Chloride 0 ml 01/19/24 18:20 Sodium Chloride 0.9 % 10 Ml Syringe IV-PUSH 01/18/25 18:19 PRN PRN Flush Sodium Chloride 10 ml 01/19/24 20:47 01/19/24 22:21 Sodium Chloride 0.9 % 10 Ml Vial.Pf INJECTION 01/18/25 20:46 10 ml PRN PRN Administration Dilution Sodium Chloride 10 ml 01/19/24 20:47 Sodium Chloride 0.9 % 10 Ml Syringe IV-PUSH 01/18/25 20:46 PRN PRN Flush Sucralfate 1 gm 01/20/24 00:00 01/20/24 06:17 Sucralfate Susp 1 Gm/10 Ml Udc PO 01/19/25 00:00 1 gm Q6HR NEENA Administration A&P - Hospitalist Assessment/Plan (1) Chest pain: (2) Pulmonary emboli: (3) CAD (coronary artery disease): Plan Atypical Chest pain with HEART score of 5 Peripheral left lower lobe PE with no evidence of right heart strain Significant past medical history of CAD with prior PCI Reportedly had chest pain at the [facility] prior to arrival. Patient recently had stents placed. Was also hypotensive on presentation. CT of the chest did demonstrate PE. Patient would likely have contraindication to starting anticoagulation given recent gastric ulcers. Will obtain discharge summary for further understanding of findings at [facility] 2 days ago. -Hold off on anticoagulation for now -Await cardiology assessment of chest pain -Continue aspirin only for now -Check ultrasound bilateral lower extremities as per pulmonary; may consider vascular consult if IVC filter is necessary Recent Upper GI bleeding, reportedly due to Gastric ulcer Hemoglobin is low at 7.7. No evidence of bleeding noted on exam at this time. FOBT negative -Continue PPI IV twice daily -Aspirin 81 mg daily only -Obtain medical records from [facility] -Monitor CBC closely -Continue subcu heparin as DVT prophylaxis Hypotension likely due to Dehydration Submassive or Massive PE is unlikely. Monitoring closely in ICU for now. Acute on chronic Hypoxic Respiratory Failure due to COPD on 2 L Nasal Cannula atHome Requiring 4 L nasal cannula at the moment. Unclear if this is related to patient's underlying PE, possibly contributing. Lungs are clear but diminished on my assessment -Supplemental O2 as needed; wean O2 as tolerated Ventral Abdominal Hernia Does not appear to have acute abdomen abdominal exam at this time. General surgery was consulted byadmitting physician. Patient is hungry and notes no abdominal pain Chronic pain syndrome Patient very sleepy and unable to articulate as to what kind of chronic pain shehas on a daily basis. She is on high doses of gabapentin, was discharged on 3 days of Lyrica on 01/18/2024, takes Percocet 4 times daily. Will have to ask her more about her chronic pain issues when she awakens. -For now, putting Lyrica, gabapentin, Percocet on hold-will restart slowly to ensure patient does not Dyslipidemia Hypertension CODE STATUS: Patient not able to articulate to me what her CODE STATUS is at this time. Will discuss with her further when she is more awake and alert. Default is Full Code for now Documented By: Luis Fernando Strauss MD 4 [id number] Signed By: <Electronically signed by Luis Fernando Strauss MD> 01/20/24 [address] [facility] Work Phone: [phone]) 207-466610-14-2024 Miscellaneous Notes* Telephone Encounter - Neema Myles - 01/13/2024 3:12 PM EDT ----- Message from Boaz Bender MD sent at 01/13/2024 12:20 PM EDT ----- Greetings Chelo Cottrell, and Shar, Please schedule the patient for a hospital follow-up for encephalopathy secondary to GI bleed and cellulitis. However, the patient does have history of PRES and frequent falls. An outpatient MRI brain and cervical spine have been ordered. It would be ideal to have imaging done prior to the clinic visit. Best Regards, Boaz Bender MD * Telephone Encounter - Wendy Woods - 01/13/2024 3:12 PM EDT 1st attempt: Ladle Operator contacted patient's friend, Kimmie Posada, (NOT ON HIPAA) and informed them thatwe have received a request from clinical staff to schedule an outpatient neurology follow up appointment with our clinic and offered to do so. Kimmie stated that they will call us back at another time to do, as she is currently admitted to [facility] because of a blood clot - Kimmie has patient's cell phone at this time. Ladle Operator informed patient that their referral is valid for up to one year, so they are able to give us a call at any time within that year to schedule - patient expressed understanding. documented in [facility]UC [facility] Telephone encounter Note* Telephone Encounter - Neema Myles - 01/13/2024 3:12 PM EDT ----- Message from Boaz Bender MD sent at 01/13/2024 12:20 PM EDT ----- Greetings Chelo Cottrell, and Shar, Please schedule the patient for a hospital follow-up for encephalopathy secondary to GI bleed and cellulitis. However, the patient does have history of PRES and frequent falls. An outpatient MRI brain and cervical spine have been ordered. It would be ideal to have imaging done prior to the clinic visit. Best Regards, Boaz Bender MD [employer] [id number] Telephone encounter Note* Telephone Encounter - Wendy Woods - 01/13/2024 3:12 PM EDT 1st attempt: Ladle Operator contacted patient's friend, Kimmie DorisLaurelEliezer, (NOT ON HIPAA) and informed them thatwe have received a request from clinical staff to schedule an outpatient neurology follow up appointment with our clinic and offered to do so. Kimmie stated that they will call us back at another time to do, as she is currently admitted to [facility] because of a blood clot - Kimmie has patient's cell phone at this time. Ladle Operator informed patient that their referral is valid for up to one year, so they are able to give us a call at any time within that year to schedule - patient expressed understanding. [facility] [id number] Miscellaneous Notes* Telephone Encounter - SHANTANU Rosenbaum - 01/13/2024 1:29 PM EDT ----- Message from USHA Mauricio sent at 01/13/2024 1:24 PM EDT ----- Regarding: Hospital follow-up Patient was seen in the hospital with upper GI bleed. Status post EGD with Dr. Angeles. Please schedule her for repeat EGD in [address] Angeles * Telephone Encounter - Irena Vallejo CMA - 01/13/2024 1:29 PM EDT Please schedule EGD 8 weeks from 01/10/24 TTH/MT ASA 4 MAC Order in * Telephone Encounter - Stacy Toney - 01/13/2024 1:29 PM EDT Left a message with my name and call back number. * Telephone Encounter - Jazmine Gutierrez MD - 01/13/2024 1:29 PM EDT Just FYI: Repeat EGD on 01/16(due to slight hemoglobin drop) showed clean based antral ulcers. Clips are not in place anymore. Gastric biopsies were taken. Patient will still need repeat EGD in [address] Angeles. Please schedule. , I cc'ed you FYI. Thanks documented in this encounterUC [facility]10-[facility] Telephone encounter Note* Telephone Encounter - SHANTANU Rosenbaum - 01/13/2024 1:29 PM EDT ----- Message from USHA Mauricio sent at 01/13/2024 1:24 PM EDT ----- Regarding: Hospital follow-up Patient was seen in the hospital with upper GI bleed. Status post EGD with Dr. Angeles. Please schedule her for repeat EGD in [address] Angeles [facility] Telephone encounter Note* Telephone Encounter - Irena Vallejo CMA - 01/13/2024 1:29 PM EDT Please schedule EGD 8 weeks from 01/10/24 TTH/FL ASA 4 MAC Order in [facility]10-14-2024 Telephone encounter Note* Telephone Encounter - Stacy Ganllo - 01/13/2024 1:29 PM EDT Left a message with my name and call back number. [facility] Telephone encounter Note* Telephone Encounter - Jazmine Gutierrez MD - 01/13/2024 1:29 PM EDT Just FYI: Repeat EGD on 01/16(due to slight hemoglobin drop) showed clean based antral ulcers. Clips are not in place anymore. Gastric biopsies were taken. Patient will still need repeat EGD in [address] Angeles. Please schedule. , I cc'ed you FYI. Thanks [facility] Work Phone: 1(535) 269-281304-22-2023 Hospital Discharge instructions* Discharge Instructions* Jorge Cortez PA-C - 07/21/2022 1:19 PM EDT Follow-up with primary care doctor 7 to 10 days for reevaluation. Avoid movements that worsen your pain. Take Tylenol as directed for discomfort. Promptly return to emergency department for new, changing, worsening of symptoms or other concerns. * Attachments The following attachments cannot be sent through Care Everywhere. * Fall Prevention (Uruguayan) * Low Back Contusion (Uruguayan) documented [facility] Work Phone: [phone]) 718-733601-27-2023 History and physical note* YOVANY Owen - 04/27/2022 2:00 PM EST Images from the original note were not included. +++++++++++++++++++++++++++++++++++++++++++++++++++++++++ HPI +++++++++++++++++++++++++++++++++++++++++++++++++++++++++ Chief Complaint Patient presents with Abdomen Mass Complains of left abd mass/pain Ms. Olivarez is a 61 y.o. who presents to the clinic today regarding abdominal bulge. The patient's initial abdominal operations have included hysterectomy. Currently, she states having a worsening bulge at the incision site with accompanying pain. This bulge has grown slowly over the past 2 yrs. The patient does state that the pain is worse with straining. She denies nausea, vomiting, fevers, or chills associated with the worsening bulge. The patient has a current medication list which includes the following prescription(s): aspirin, beclomethasone hfa, levothyroxine, lisinopril, metoprolol, oxycodone-acetaminophen, pravastatin, pregabalin, clopidogrel, nicotine, nicotine, nicotine polacrilex, and zolpidem. The patient is allergic to cyclobenzaprine, azithromycin, cefaclor, codeine, iodides, regadenoson, seasonal, trazodone and nefazodone, and simvastatin. The patient has a past medical history of Anemia, Arthritis, COPD (chronic obstructive pulmonary disease), Diabetes mellitus, Essential hypertension, benign, Hyperlipidemia, Hypothyroidism, and Vascular disease. Past Surgical History: Procedure Laterality Date EGD W/ ULTRASOUND N/A 07/19/2021 Laterality: N/A; Surgeon: Pedrito Pickett MD; [facility] BYPASS Left HYSTERECTOMY The patient's family history is not on file. The patient reports that she has been smoking cigarettes. She has a 13.00 pack- year smoking history. She has never used smokeless tobacco. She reports that she does not drink alcohol and does not usedrugs. I have reviewed the patient's medical history in detail and updated the computerized patient record. +++++++++++++++++++++++++++++++++++++++++++++++++++++++++ REVIEW OF SYSTEMS +++++++++++++++++++++++++++++++++++++++++++++++++++++++++ Constitutional: She is well-developed, well-nourished, and in no distress. Normal Mood/Affect Normal Orientation X 3 CONSTITUTIONAL > >Negative for abnormal weight gain or weight loss. EYES > > > >Negative for recent eyesight changes. HEENT > > > >Negative CARDIOVASCULAR > >Negative for chest pain, palpitations. RESPIRATORY > > >Positive for SOB after ambulating a 1/2 block. Negative for cough. GASTROINTESTINAL > >Positive for abdominal bulge with pain. Negative for nausea, vomiting, diarrhea, constipation, change in appetite. AMAN > > > >Negative INTEGUMENTARY > >Negative MUSCULOSKELETAL > >Negative for abnormal muscle aches or pains. NEUROLOGICAL > > >Negative for numbness / tingling in hands / feet. HEMAT/LYMPH > > >Negative for easy bruising. Denies use of anticoagulants. ALL/IMMUN > > >Reviewed PSYCHIATRIC > > >Negative ENDOCRINE > > >Positive for DM Type II, A1C 5.3. ALL OTHERS > > >Normal +++++++++++++++++++++++++++++++++++++++++++++++++++++++++ PHYSICAL EXAM +++++++++++++++++++++++++++++++++++++++++++++++++++++++++ BP 196/78 Pulse 70 Ht 1.549 m (5' 1 ) Wt 61.2 kg (135 lb) BMI 25.51 kg/m Smoking Status Every Day Body mass index is 25.51 kg/m . [facility] Ms. Olivarez is a well nourished and healthy appearing in no acute distress. EYES --------- PERRLA > > > > >Normal EOMI > > > > >Normal HEENT -------- External Ears and Nose > > >Normal NECK --------- No masses, symmetry, no crepitus >Normal RESPIRATORY --- Respiratory Effort > > > >Normal Auscultation > > > >CTA B No W/R/R CARDIOVASCULAR Palpitation > > > > >Normal Ausculation shows no MRG > >RRR No M/C/R/G CCE > > > > >Normal ABDOMEN Masses or Tenderness > > >Abdomen soft, non-tender. BS normal. No masses, organomegaly Hepatosplenomegaly > >No Hernias > > > > >large incisional hernia midabdominal area MUSCULOSKELETAL Gait and Station > > > >Ambulates normally in clinic. SKIN Inspection and Palpitation > > >Normal NEUROLOGIC --- Cranial Nerves 1-12 > > >Normal Sensory Exam > > > >Normal PSYCHIATRIC ---- Alert > > > > >Normal Oriented to person, time and place >Normal TESTS/IMAGING CT SCAN-A/P outside 01/04/22 - Impression 1. Recurrence of a ventral hernia with more loops of small and large bowel in the hernia sac without evidence for obstruction. 2. 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 3. Severe right hip osteoarthritis with joint effusion. Septic arthritis cannot be excluded. Clinical correlation is recommended. 4. Hepatomegaly. Lab Results Component Value Date GLUCOSE 76 07/19/2021 ASSESSMENT Ms. Olivarez is a 61 y.o. with an incisional hernia. Pertinent abdominal surgical includes hysterectomy. Symptoms associated with the hernia include pain and an increase in size. No evidence of an acute abdomen on exam. There is no history of bowel obstruction or strangulation r/t hernia. The patient is a diabetic with an A1C 5.3 (08/25/21). She is a 0.5 PPD nicotine user. Her Body mass index is 25. 51 kg/m . The patient is not a surgical candidate for elective hernia repair at this time d/t active nicotine use. DIAGNOSIS: ICD-10-CM 1. Ventral hernia without obstruction or gangrene K43.9 2. Tobacco use Z72.0 PLAN Tobacco use - 0.5 PPD. Patient is motivated to quit. Patient will need to quit at least 4 weeks before hernia repair. She is interested in pharmacotherapy. Rx for patch and gum sent to pharmacy. We discussed health risks and negative effects on surgical wound healing. Tobacco cessation resources provided. Declined Tobacco Cessation Referral due to residing in [place]. Spent 3-5 minutes counseling on this topic. Will continue to address. I discussed the small chance of incarceration or strangulation and educated the patient regarding the signs and symptoms of this, namely, fevers, chills, nausea, vomiting, worsening pain at the hernia site. I also instructed that should any of these symptoms be experienced, medical treatment shouldbe sought immediately. I also discussed that it is difficult to predict in whom or when episodes such as this may occur. The patient voiced understanding. Return in 6 wks for nicotine status check Electronically Signed By: YOVANY Shaver [facility], Division of General & Gastrointestinal Surgery [address] [place], [address] [facility] [address], [place] [address] Office 05/04/2022 8:34 AM [facility]01-27-2023 History and physical note* YOVANY Owen - 04/27/2022 2:00 PM EST Images from the original note were not included. +++++++++++++++++++++++++++++++++++++++++++++++++++++++++ HPI +++++++++++++++++++++++++++++++++++++++++++++++++++++++++ Chief Complaint Patient presents with Abdomen Mass Complains of left abd mass/pain Ms. Olivarez is a 61 y.o. who presents to the clinic today regarding abdominal bulge. The patient's initial abdominal operations have included hysterectomy. Currently, she states having a worsening bulge at the incision site with accompanying pain. This bulge has grown slowly over the past 2 yrs. The patient does state that the pain is worse with straining. She denies nausea, vomiting, fevers, or chills associated with the worsening bulge. The patient has a current medication list which includes the following prescription(s): aspirin, beclomethasone hfa, levothyroxine, lisinopril, metoprolol, oxycodone-acetaminophen, pravastatin, pregabalin, clopidogrel, nicotine, nicotine, nicotine polacrilex, and zolpidem. The patient is allergic to cyclobenzaprine, azithromycin, cefaclor, codeine, iodides, regadenoson, seasonal, trazodone and nefazodone, and simvastatin. The patient has a past medical history of Anemia, Arthritis, COPD (chronic obstructive pulmonary disease), Diabetes mellitus, Essential hypertension, benign, Hyperlipidemia, Hypothyroidism, and Vascular disease. Past Surgical History: Procedure Laterality Date EGD W/ ULTRASOUND N/A 07/19/2021 Laterality: N/A; Surgeon: Pedrito Pickett MD; [facility] Left HYSTERECTOMY The patient's family history is not on file. The patient reports that she has been smoking cigarettes. She has a 13.00 pack- year smoking history. She has never used smokeless tobacco. She reports that she does not drink alcohol and does not usedrugs. I have reviewed the patient's medical history in detail and updated the computerized patient record. +++++++++++++++++++++++++++++++++++++++++++++++++++++++++ REVIEW OF SYSTEMS +++++++++++++++++++++++++++++++++++++++++++++++++++++++++ Constitutional: She is well-developed, well-nourished, and in no distress. Normal Mood/Affect Normal Orientation X 3 CONSTITUTIONAL > >Negative for abnormal weight gain or weight loss. EYES > > > >Negative for recent eyesight changes. HEENT > > > >Negative CARDIOVASCULAR > >Negative for chest pain, palpitations. RESPIRATORY > > >Positive for SOB after ambulating a 1/2 block. Negative for cough. GASTROINTESTINAL > >Positive for abdominal bulge with pain. Negative for nausea, vomiting, diarrhea, constipation, change in appetite. AMAN > > > >Negative INTEGUMENTARY > >Negative MUSCULOSKELETAL > >Negative for abnormal muscle aches or pains. NEUROLOGICAL > > >Negative for numbness / tingling in hands / feet. HEMAT/LYMPH > > >Negative for easy bruising. Denies use of anticoagulants. ALL/IMMUN > > >Reviewed PSYCHIATRIC > > >Negative ENDOCRINE > > >Positive for DM Type II, A1C 5.3. ALL OTHERS > > >Normal +++++++++++++++++++++++++++++++++++++++++++++++++++++++++ PHYSICAL EXAM +++++++++++++++++++++++++++++++++++++++++++++++++++++++++ BP 196/78 Pulse 70 Ht 1.549 m (5' 1 ) Wt 61.2 kg (135 lb) BMI 25.51 kg/m Smoking Status Every Day Body mass index is 25.51 kg/m . GENERAL Ms. Olivarez is a well nourished and healthy appearing in no acute distress. EYES --------- PERRLA > > > > >Normal EOMI > > > > >Normal HEENT -------- External Ears and Nose > > >Normal NECK --------- No masses, symmetry, no crepitus >Normal RESPIRATORY --- Respiratory Effort > > > >Normal Auscultation > > > >CTA B No W/R/R CARDIOVASCULAR Palpitation > > > > >Normal Ausculation shows no MRG > >RRR No M/C/R/G CCE > > > > >Normal ABDOMEN Masses or Tenderness > > >Abdomen soft, non-tender. BS normal. No masses, organomegaly Hepatosplenomegaly > >No Hernias > > > > >large incisional hernia midabdominal area MUSCULOSKELETAL Gait and Station > > > >Ambulates normally in clinic. SKIN Inspection and Palpitation > > >Normal NEUROLOGIC --- Cranial Nerves 1-12 > > >Normal Sensory Exam > > > >Normal PSYCHIATRIC ---- Alert > > > > >Normal Oriented to person, time and place >Normal TESTS/IMAGING CT SCAN-A/P outside 01/04/22 - Impression 1. Recurrence of a ventral hernia with more loops of small and large bowel in the hernia sac without evidence for obstruction. 2. 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 3. Severe right hip osteoarthritis with joint effusion. Septic arthritis cannot be excluded. Clinical correlation is recommended. 4. Hepatomegaly. Lab Results Component Value Date GLUCOSE 76 07/19/2021 ASSESSMENT Ms. Olivarez is a 61 y.o. with an incisional hernia. Pertinent abdominal surgical includes hysterectomy. Symptoms associated with the hernia include pain and an increase in size. No evidence of an acute abdomen on exam. There is no history of bowel obstruction or strangulation r/t hernia. The patient is a diabetic with an A1C 5.3 (08/25/21). She is a 0.5 PPD nicotine user. Her Body mass index is 25. 51 kg/m . The patient is not a surgical candidate for elective hernia repair at this time d/t active nicotine use. DIAGNOSIS: ICD-10-CM 1. Ventral hernia without obstruction or gangrene K43.9 2. Tobacco use Z72.0 PLAN Tobacco use - 0.5 PPD. Patient is motivated to quit. Patient will need to quit at least 4 weeks before hernia repair. She is interested in pharmacotherapy. Rx for patch and gum sent to pharmacy. We discussed health risks and negative effects on surgical wound healing. Tobacco cessation resources provided. Declined Tobacco Cessation Referral due to residing in [place]. Spent 3-5 minutes counseling on this topic. Will continue to address. I discussed the small chance of incarceration or strangulation and educated the patient regarding the signs and symptoms of this, namely, fevers, chills, nausea, vomiting, worsening pain at the hernia site. I also instructed that should any of these symptoms be experienced, medical treatment shouldbe sought immediately. I also discussed that it is difficult to predict in whom or when episodes such as this may occur. The patient voiced understanding. Return in 6 wks for nicotine status check Electronically Signed By: YOVANY Shaver [facility], Division of General & Gastrointestinal Surgery [address] [place], [address] [place] [address] [address], [place] [id number] Office 05/04/2022 8:34 AM [facility] Instructions* Patient Instructions* YOVANY Owen - 04/27/2022 2:00 PM EST Tobacco Cessation Resources Using tobacco products before surgery can increase the risk of health problems and/or postoperativecomplications. Tobacco use can also put you at risk for pneumonia, heart problems, stroke, and/or blood clots after surgery. Quitting at least 4-6 weeks before and after surgery will assist in quicker surgical healing and will be less likely to get infected. Tobacco decreases the amount of oxygen and nutrients that are carried to the tissue and organs thus will delay wound healing and increase the risk of infection. THE [place] TOBACCO QUIT LINE ( ) The hotline is available to uninsured [place], Medicated recipients, women and members of the [place] [employer]. Provides expert advice and support, personalized Quit plan and self-help materials, and free nicotine patches. Hours are Saturday-Saturday 9am - 11pm, Saturday and Saturday 10:30am - 6:30pm, Voicemail services are available 22/10 [facility] - Tobacco Cessation Clinic is a pharmacist-run physician-supervised clinic providing consultation and support services to those thinking about or who are ready to quit nicotine use. Call [phone](Quit) for an appointment. ONLINE QUIT GUIDES & RESOURCES [place] [employer]: Guide to Quitting Smoking http://www.cancer.org/Healthy/StayAway fromTobacco/GuidetoQuittingSmoking/index Quit line for resources or to talk with a counselor near you [place] [employer] http://www.heart.org/HEARTORG/GettingHealthy/ QuitSmoking/Quit- Smoking_[facility]_001085_ SubHomePage.jsp [place] [employer] http://www.lungusa.org/stop-smoking/how-to-quit/ http://www.ffsonline.org or call 056-768-5400 National Cancer [place]: Smokefree.gov www.smokefree.gov Smokefree QuitGuide Smartphone Application Quit line Center for Disease Control Prevention www.CDC.gov/tobacco [place] [employer] Physicians: Free Patient Education Materials http://www.aafp.org/online/en/home/clinical/ publichealth/tobacco/resources.html The Department of Health and Human Services https://BeTobaccoFree.gov documented in this [facility]07-08-2022 NotePROCEDURE: Vormetric Signa HDXT 1.5 Sagittal T1, T2, STIR and axial T1 and T2 contiguous and cone down images through the lumbar spine were performed without contrast administration. HISTORY: Low back pain, tingling in right leg. FINDINGS: Normal vertebral height. Arthritic end plate signal intensity changes primarily involve the areas of severe disc space loss, L2-3 (5mm anterolisthesis) and L4-5. No vertebral body or posterior element edema/fracture. Mild soft tissue inflammatory signal neighbors bilateral L2-3 facet joints. Unremarkable conus medullaris and filum terminale. Unremarkable paravertebral soft tissues. Right adrenal gland low signal intensity 12 x 16 mm nodule. Asymmetric reduction of the right renal size compared to the left. T12-L1: Normal. L1-2: Normal disc volume. Broad based left lateral recess disc herniation, no significant lateral recess or neuroforaminal stenosis. L2-3: Severe disc space loss, uncovering of bulging central disc material due to the anterolisthesis. Bilateral facet arthropathy which includes a small amount of fluid within the facet joints. No spinal canal stenosis. Mild right, moderate left neuroforaminal stenosis. L3-4: Normal disc volume. Mild central disc bulging. Bilateral facet arthropathy. No spinal canal or neuroforaminal stenosis. L4-5: Severe disc space loss. Broad based disc herniation, ligamentum flavum hypertrophy and facet arthropathy results in severe stenosis of the thecal sac. Minimal bilateral neuroforaminal stenosis. L5-S1: Moderate disc space loss. Broad based central disc osteophyte complex, disc bulging into both neuroforaminal zones, facet arthropathy and ligamentum flavum hypertrophy. Mild to moderate stenosis of the thecal sac. Mild right neuroforaminal stenosis. IMPRESSION: 1. Moderate to severe L4-5 canal stenosis. 2. Moderate left L2-3 neuroforaminal stenosis. Presence of facet fluid may indicate motion at this level. Flexion and extension maneuvers maybe of assistance. 3. Right adrenal gland nodule, correlate with prior imaging for stability. If the patient has a known primary carcinoma and this is a new finding, PET imaging would be of assistance. Report reported and signed by Dwight Goel on 10/06/2021 [id number]04-20-2022 History and physical note* Leighton Tabares MD - 07/19/2021 12:30 PM EDT ENDOSCOPIC PREPROCEDURE HISTORY AND PHYSICAL HISTORY OF PRESENT ILLNESS: Jonatan Olivarez is a 60 y.o. female seen in the preoprocedure area at [facility]. The indication for endoscopic evaluation includes: Pre-Op Diagnosis Codes: * Pancreatic mass [K86.89]. PAST MEDICAL HISTORY: No past medical history on file. SURGICAL HISTORY: No past surgical history on file. MEDICATIONS: No current outpatient medications No current facility-administered medications for this encounter. ALLERGIES: Allergies Allergen Reactions Cyclobenzaprine Agitation Other reaction(s): legs jump, Other (See Comments) Patient states it causes legs to jump and says she can't stop it Azithromycin Cefaclor Hives Codeine Iodides Regadenoson Seasonal Trazodone And Nefazodone Hives Simvastatin Itching Message: PT reports mild itching with simvastatin Sent: Today 833 by Diamond Jacques RN Muscle aches. Message: PT reports mild itching with simvastatin Sent: Today 833 by Diamond Jacques RN FOCUSED REVIEW OF SYSTEMS: Negative for nausea, vomiting, abdominal pain and diarrhea VITAL SIGNS: There were no vitals filed for this visit. PREPROCEDURE PHYSICAL EXAM: AIRWAY: normal, Mallampati: Class II (complete visualization of the uvula) HEART: Regular and No murmur PULMONARY: Lungs clear to auscultation bilaterally ABDOMEN: Distended ASSESSMENT: Jonatan Olivarez is a 60 y.o. female is ready for the planned procedure. ASA Class: ASA 3 - Patient with moderate systemic disease with functional limitations PLAN: Will plan to proceed with Procedure(s): EGD W/ ULTRASOUND using Monitored Anesthesia Care. Pedrito Pickett MD [facility]04-20-2022 History and physical note* Leighton Tabares MD - 07/19/2021 12:30 PM EDT ENDOSCOPIC PREPROCEDURE HISTORY AND PHYSICAL HISTORY OF PRESENT ILLNESS: Jonatan Olivarez is a 60 y.o. female seen in the preoprocedure area at [facility]. The indication for endoscopic evaluation includes: Pre-Op Diagnosis Codes: * Pancreatic mass [K86.89]. PAST MEDICAL HISTORY: No past medical history on file. SURGICAL HISTORY: No past surgical history on file. MEDICATIONS: No current outpatient medications No current facility-administered medications for this encounter. ALLERGIES: Allergies Allergen Reactions Cyclobenzaprine Agitation Other reaction(s): legs jump, Other (See Comments) Patient states it causes legs to jump and says she can't stop it Azithromycin Cefaclor Hives Codeine Iodides Regadenoson Seasonal Trazodone And Nefazodone Hives Simvastatin Itching Message: PT reports mild itching with simvastatin Sent: Today 833 by Diamond Jacques RN Muscle aches. Message: PT reports mild itching with simvastatin Sent: Today 833 by Diamond Jacques RN FOCUSED REVIEW OF SYSTEMS: Negative for nausea, vomiting, abdominal pain and diarrhea VITAL SIGNS: There were no vitals filed for this visit. PREPROCEDURE PHYSICAL EXAM: AIRWAY: normal, Mallampati: Class II (complete visualization of the uvula) HEART: Regular and No murmur PULMONARY: Lungs clear to auscultation bilaterally ABDOMEN: Distended ASSESSMENT: Jonatan Olivarez is a 60 y.o. female is ready for the planned procedure. ASA Class: ASA 3 - Patient with moderate systemic disease with functional limitations PLAN: Will plan to proceed with Procedure(s): EGD W/ ULTRASOUND using Monitored Anesthesia Care. Pedrito Pickett MD [facility] Hospital course Narrative* Caern Mera MD - 03/19/2021 1:16 PM EST Physician Discharge Summary Caren Mera MD Patient ID: Jonatan Olivarez [id number] Admission date: 03/17/2021 Discharge date: 03/19/2021 Admitting Physician: No att. providers found Primary Care Physician: Osmar Rodriguez MD Primary Discharge Diagnoses: Patient Active Problem List Diagnosis Date Noted Unstable angina ([facility]) 03/17/2020 Angina, class III ([facility]) 02/25/2018 Diabetic ulcer of toe of left foot associated with type 2 diabetes mellitus, with fat layer exposed([facility]) 01/24/2017 CAD S/P percutaneous coronary angioplasty 08/30/2013 Mild malnutrition ([facility]) 02/22/2021 Diabetic polyneuropathy associated with type 2 diabetes mellitus ([facility]) 01/24/2017 Ventral hernia 08/30/2013 Acute on chronic diastolic heart failure ([facility]) 03/18/2021 Cellulitis of left lower extremity 02/21/2021 S/P cardiac cath 03/18/2020 S/P angioplasty with stent 03/18/2020 Acute coronary syndrome ([facility]) 03/17/2020 E. coli UTI 07/20/2019 AMS (altered mental status) 07/18/2019 Acute on chronic respiratory failure with hypercapnia ([facility]) 07/18/2019 Acute on chronic respiratory failure with hypoxemia ([facility]) 04/23/2019 Pneumonia due to infectious organism 04/23/2019 COPD (chronic obstructive pulmonary disease) ([facility]) Diabetes mellitus ([facility]) Hypertension Community acquired bacterial pneumonia 04/21/2019 COPD exacerbation ([facility]) 06/06/2018 COPD with exacerbation ([facility]) 06/05/2018 Acute respiratory failure with hypoxia and hypercapnia ([facility]) 06/05/2018 Hx of blood clots CAD (coronary artery disease) Tobacco abuse counseling 05/27/2014 Tobacco abuse disorder 05/27/2014 Atherosclerosis of artery of extremity with intermittent claudication ([facility]) 05/27/2014 Dizziness 05/27/2014 Intolerance of drug 05/27/2014 Atherosclerosis of both carotid arteries 05/27/2014 Hypothyroidism 05/27/2014 Abnormal nuclear stress test 01/22/2013 Smoking greater than 40 pack years 01/22/2013 Claudication in peripheral vascular disease ([facility]) 11/06/2012 Stable angina ([facility]) 11/06/2012 Additional Diagnoses: Diagnosis Date Asthma Back problem Bulging discs (2 or 3), 1 cracked & 1 blackened discs CAD (coronary artery disease) stents x 3; BMS to LAD 12/2010;SPARKLE to RCA 01/2011, NL LV COPD (chronic obstructive pulmonary disease) ([facility]) Depression Diabetes mellitus ([facility]) Edema chevy legs feet H/O cardiac catheterization 01/01/2011 H/O echocardiogram 09/03/2019 EF 65% evidence of mild grade I diastolic dysfunction seen Hernia of abdominal wall 2013 History of cardiac cath 03/17/2020 [facility] Michael/Dr. Stephens/Left Radial History of cardiac cath 03/17/2020 severe single vessel disease involving the RCA. Mod 2 vessel disease in the Circumflex and D1 branch fo the LAD Nomrla LVEDP Consults IR cardiology for likely angioplasty and or stent of pts severe stenosis History of cardiovascular stress test 10/15/2012 Abnormal myocardial perfusion study, small to mod perfusion defect of mild intensity in the anterolateral and lateral regions during stress imaging, LV function NL, no wall motion abnormalities, No significant EKG evidence of ischemia during monitoring w/o significant arrhythmias. History of echocardiogram 02/24/2018 EF 60%. Mildly increased LV wall thickness. Evidence of mild diastolic dysfunction seen. History of stress test 04/23/2017 Largerly normal myocardial perfusion imaging with soft tissue artifact, but without signficant evidence of myocardial ischemia or infarction. EF 73%. Hx of blood clots abdomen Hypertension Hypothyroidism Leg pain, bilateral rate 10 Wears partial dentures upper Review of Systems: Constitutional: negative for fevers or chills Eyes: negative for visual disturbance ENT: negative for sore throat or nasal congestion Respiratory:shortness of breath better Cardiovascular: negative for chest pain ,palpitations,pnd,syncope Gastrointestinal: negative for abd pain, nausea, vomiting, diarrhea , constipation,hemetemesis,bart,blood in stool Genitourinary: negative for dysuria, urgency ,frequency,hematuria Integument/breast: negative for skin rash or lesions Neurological: negative for unilateral weakness, numbness or tingling. Skeletal Muscular: has chronic leg pain,toe infection better Physical exam: Exam: GEN: A & O x3, no apparent distress EYES: No gross abnormalities. NECK: normal, supple, no lymphadenopathy, no carotid bruits PULM: decreased breath sounds noted- bilat,no whezins,no rakes COR: regular rate & rhythm and no gallops ABD: soft, non-tender, non-distended, normal bowel sounds, no masses or organomegaly EXT: no cyanosis, clubbing or edema present , toe infection better NEURO: negative SKIN: no rashes or significant lesions Hospital Course: The patient was admitted for the above. She was treated with iv lasix,antibiotics and improved over the course of her hospitalization. Toe infection improved, she remained on 2 lit oxygen. Consultants: none Procedures: none Complications: none Significant Diagnostic Studies: XR CHEST (2 VW) Result Date: 03/18/2021 EXAMINATION: TWO XRAY VIEWS OF THE CHEST 03/18/2021 8:19 am COMPARISON: Chest CT and radiograph 03/17/2021 HISTORY: ORDERING SYSTEM PROVIDED HISTORY: hypoxia TECHNOLOGIST PROVIDED HISTORY: hypoxia FINDINGS: Bilateral perihilar opacities, interstitial opacities and mild septal thickening. Blunting of the costophrenic angles. No pneumothorax identified. No significant effusion. No significant change in vascular congestion with findings of interstitial edema and trace pleural effusions. XR HIP RIGHT (2-3 VIEWS) Result Date: 02/21/2021 EXAMINATION: TWO XRAY VIEWS OF THE RIGHT HIP 02/21/2021 5:42 pm COMPARISON: 03/11/2011 HISTORY: ORDERING SYSTEM PROVIDED HISTORY: pain TECHNOLOGIST PROVIDED HISTORY: pain FINDINGS: No fracture, dislocation, or focal osseous lesion is noted. Moderate severe osteoarthritic change. Overlying surgical identified may perhaps related to previous vascular intervention. no significant soft tissue abnormality seen. No fracture or dislocation. Degenerate change. CT ABDOMEN PELVIS W IV CONTRAST Additional Contrast? None Result Date: 02/21/2021 EXAMINATION: CT OF THE ABDOMEN AND PELVIS WITH CONTRAST 02/21/2021 7:52 pm TECHNIQUE: CT of the abdomen and pelvis was performed with the administration of intravenous contrast. Multiplanar reformatted images are provided for review. Dose modulation, iterative reconstruction, and/or weight based adjustment of the mA/kV was utilized to reduce the radiation dose to as low as reasonably achievable. COMPARISON: 01/17/2021 HISTORY: ORDERING SYSTEM PROVIDED HISTORY: rash with pain out of proportion TECHNOLOGIST PROVIDED HISTORY: rash with pain out of proportion Decision Support Exception - unselectif not a suspected or confirmed emergency medical condition->Emergency Medical Condition (MA) FIN DINGS: Lower Chest: Cardiomegaly. Coronary artery disease status post stenting noted. Bibasilar hypoventilatory change. Organs: Gallbladder is absent. Mild prominence of the common bile duct likely sequelae of physiologic ectasia related to previous cholecystectomy. Otherwise the liver, spleen, adrenal glands, kidneys, and pancreas unremarkable. Right kidney is slightly atrophic. No hydronephrosis. GI/Bowel: Moderate wall thickening along the gastric antrum can be seen with gastritis or underdistention. Please correlate exam findings. Ventral abdominal hernia containing loops of bowel. These demonstrate nonspecific air-fluid levels could represent focal ileus. No findings of bowel obstruction. Retained stool throughout the colon. Appendix unremarkable. No pericecal inflammatory change. Pelvis: Bladder is unremarkable. Uterus absent. No suspicious adnexal mass. Peritoneum/Retroperitoneum: Aortic vascular calcifications with posterior change involving the aorta noted status post bypass grafting. No free air or free fluid. Bones/Soft Tissues: Pars interarticularis defects lucency defects identified at L1 and L2 bilaterally. Otherwise moderate severe multilevel degenerate changes. Occluded left femoral bypass grafting noted with overlying surgical oneil. Minimal nonspecific fluid identified left inguinal region a nonspecific, question this could be reactive.. Moderate wall thickening along gastric antrum may represent underdistention, peristaltic activity versus gastritis. Ventral hernia containing loops of bowel with prominent fluid levels. No evidence of bowel obstruction. This may represent focal ileus versus nonspecific enteritis. Pars defects at L2and L3 again identified with multilevel degenerate changes elsewhere within the lumbar spine XR CHEST PORTABLE Result Date: 03/17/2021 EXAMINATION: ONE XRAY VIEW OF THE CHEST 03/17/2021 2:23 pm COMPARISON: None. HISTORY: ORDERING SYSTEM PROVIDED HISTORY: dyspnea TECHNOLOGIST PROVIDED HISTORY: dyspnea FINDINGS: There are diffuse reticular airspace opacities. Small bilateral pleural effusions, left greater than right. Stable cardiomegaly. No pneumothorax. Diffuse reticular airspace opacities. This could represent interstitial pulmonary edema versus atypical/viral infection. Small bilateral pleural effusions. CT CHEST PULMONARY EMBOLISM W CONTRAST Result Date: 03/17/2021 EXAMINATION: CTA OF THE CHEST 03/17/2021 4:21 pm TECHNIQUE: CTA of the chest was performed after the administration of intravenous contrast. Multiplanar reformatted images are provided for review. MIP images are provided for review. Dose modulation, iterative reconstruction, and/or weight based adjustment of the mA/kV was utilized to reduce the radiation dose to as low as reasonably achievable. COMPARISON: CT scan of the chest for PE from 10/06/2019 HISTORY: ORDERING SYSTEM PROVIDED HISTORY: shortness of breath TECHNOLOGIST PROVIDED HISTORY: shortness of breath History of asthma, diabetes, COPD, and tobacco abuse, and unstable angina. FINDINGS: Pulmonary Arteries: Pulmonary arteries are adequately opacified for evaluation. No evidence of intraluminal filling defect to suggest pulmonary embolism. Main pulmonary artery is dilated to 40 mm (versus 39 mm previously); right and left pulmonary arteries are also dilated. Mediastinum: Unchanged mild mediastinal and hilar lymphadenopathy; no bulky lymphadenopathy. The heart and pericardium demonstrate no acute abnormality. There is no acute abnormality of the thoracic aorta; moderate-severe calcific ASVD again demonstrated arch, major vessels, and descending thoracic aorta. No aneurysm or dissection.. Lungs/pleura: Similar pulmonary abnormalities to those seen previously, including subtle crazy paving (best seen upper lung zones and greater right apex) with interlobular septal thickening, and hazy ground-glass opacities. Additional scattered more peripheral interlobular septal thickening, hazy ground-glass opacities and, toward thebases, discoid and subsegmental atelectasis. No traction bronchiectasis or honeycombing. Trace right and small left pleural effusions. No focal consolidation or pulmonary edema. No evidence of pleural effusion or pneumothorax. Upper Abdomen: Limited images of the upper abdomen show no acute abnormality. Small hiatus hernia. Upper stent graft abdominal aorta.. Soft Tissues/Bones: No acute bone or soft tissue abnormality. No evidence of pulmonary embolism. Pulmonary artery hypertension, moderate- severe and increased slightly as compared to the previous study. Relatively diffuse pulmonary abnormalities, similar to the previous study but now with small pleural effusions and greater basilar atelectasis, as above; differential again includes infectious, inflammatory and neoplastic etiologies. Pulmonary edema, interstitial and other pneumonias, alveolar proteinosis, and less commonly drug induced pneumonitis, pulmonary hemorrhage, UIP, and other causes should be considered. Mild unchanged adenopathy. Additional unchanged findings, as above. RECOMMENDATIONS: Unavailable CT HIP RIGHT WO CONTRAST Result Date: 02/22/2021 EXAMINATION: CT OF THE RIGHT HIP WITHOUT CONTRAST 02/22/2021 8:50 am TECHNIQUE: CT of the right hipwas performed without the administration of intravenous contrast. Multiplanar reformatted images are provided for review. Dose modulation, iterative reconstruction, and/or weight based adjustment of the mA/kV was utilized to reduce the radiation dose to as low as reasonably achievable. COMPARISON: Right hip plain radiographs from 02/21/2021 HISTORY ORDERING SYSTEM PROVIDED HISTORY: right hip painTECHNOLOGIST PROVIDED HISTORY: right hip pain 60-year-old female who complains of right hip pain FINDINGS: Bones: Subcortical cystic changes and lucencies at the superior right femoral head and rightacetabulum. Underlying AVN at the superior right femoral head not excluded. Moderate degenerative changes and multifocal disc space narrowing and vacuum disc phenomenon in the lower lumbar/lumbosacral spine. No acute fracture or dislocation. Soft Tissue: Atherosclerotic calcification of the aorta and branch vasculature. Pelvic phleboliths. Moderate stool burden. Remote postsurgical changes and graft material along the bilateral common femoral arteries. Proximal sciatic nerves demonstrate normalcourse, contour, and caliber on limited coronal T1-weighted imaging. Large wide-mouth ventral hernia with neck measuring 11.6 cm transversely on image 25, series 4 with colonic and small bowel loops extending into the ventral hernia. This measures 12.1 cm in greatest craniocaudal extent on image 80, series 602. Hernia measures 15.1 cm transversely on image 28, series 4. Joint: Complete effacementof the right hip joint space. Mild osteophyte spurring at the margins of the bilateral hip joint spaces. Mild degenerative changes of the pubic symphysis. 1. Severe right hip osteoarthrosis. Underlying right femoral head AVN not excluded. 2. Mild left hip osteoarthrosis. 3. Large wide-mouth ventral hernia measuring 15.1 x 12.1 cm in greatest transverseand craniocaudal dimensions containing loops of small bowel and colon. 4. Atherosclerotic calcification of the aorta and branch vasculature. 5. Moderate degenerative changes in the lower lumbar/lumbosacral spine. 6. Remote postsurgical changes and graft material along the bilateral common femoral arteries. VL DUP LOWER EXTREMITY VENOUS BILATERAL Result Date: 03/17/2021 [facility] Vascular Lower Extremities DVT Study Procedure Patient Name [place] Date of Study 03/17/2021 JONATAN C Date of 1960 Gender Female Age 60 year(s) Race Room Number 01A Corporate ID # [id number] Patient MR # [id number] Corporate Statistical Financial Analyst Corrine Peterson Interpreting Physician Jose Mercer MD Referring Nurse Fredy Billingsley, Referring Physician Practitioner [employer] Procedure Type of Study: Veins: Lower Extremities DVT Study, Venous Scan Lower Bilateral. Patient Status:ER. Comments:INDICATIONS: Rt groin pain Conclusions Summary No evidence of superficial or deep venous thrombosis in both lower extremities. Left GSV is not visualized. Signature Findings: Right Impression: Left Impression: The common femoral, femoral, The common femoral, femoral, popliteal, tibials and saphenous popliteal, tibials and saphenous veins are compressible with normal veins are compressible with normal doppler responses. doppler responses. The common femoral, femoral, popliteal, tibials and peroneal veins are compressible with normal doppler responses. GSV is not visualized. Risk Factors History +---------+ +-- + !Diagnosis!Date !Comments ! +---------+ + + !Other !06/11/2013!Right to left fem-to-fem bypass ! +---------+ + + Allergies -Allergy:*Unlisted(Drug). Comments:arabella simvastatin - Allergy:Codeine(Drug). - Allergy:*Unlisted(Drug). Comments:simvastatin Velocities are measured in cm/s ; Diameters are measured in cm Right Lower Extremities DVT Study Measurements Right 2D Measurements + + + + + !Location !Visualized!Compressibility!Thrombosis! + + + + + !Common Femoral !Yes !Yes !None ! +--- + + + + !Prox Femoral !Yes !Yes !None ! + + + + + !Mid Femoral !Yes!Yes !None ! + + + + + !Dist Femoral !Yes !Yes !None ! + + + + + ! Deep Femoral !Yes !Yes !None ! + + + + + !Popliteal !Yes !Yes !None ! + + + + + !Sapheno Femoral Junction !Yes !Yes !None ! + + + + + !PTV !Yes !Yes !None ! + +---- ------+ + + !Peroneal !Yes !Yes !None ! + + + + + !Gastroc !Yes !Yes !None ! + ----+ + + + !GSV Thigh !Yes !Yes !None ! + + + + + !GSV Knee !Yes !Yes !None ! + + + + + !GSV Ankle !Yes !Yes !None ! + + + + + !SSV !Yes !Yes !None ! + + + + + Right Doppler Measurements + +------+------+ + !Location !Signal!Reflux!Reflux (msec) ! + +------+------+ + !Common Femoral !Phasic!No ! ! + +------+------+ + !Prox Femoral !Phasic!No ! ! + +------+------+ + !Po pliteal !Phasic!No ! ! + +------+------+ +Left Lower Extremities DVT Study Measurements Left 2D Measurements + + + + + !Location !Visualized!Compressibility!Thrombosis! +----- + + + + !Common Femoral !Yes !Yes !None ! + + + + + !Prox Femoral !Yes !Yes !None ! + + + + + !Mid Femoral !Yes !Yes !None ! + + + + + ! Dist Femoral !Yes !Yes !None ! + + + + + !Deep Femoral !Yes !Yes !None ! + + + + + !Popliteal !Yes !Yes !None ! + + + + + !Sapheno Femoral Junction !Yes !Yes !None ! + ----+ + + + !PTV !Yes !Yes !None ! + + + + + !Peroneal !Yes !Yes !None ! + ---------+ + + + !Gastroc !Yes !Yes !None ! + + + + + !GSV Thigh !No !Yes !None ! + + + + + !GSV Knee !No !Yes !None ! + + + + + !GSV Ankle !No !Yes !None ! +--------- + + + + !SSV !Yes !Yes !None ! +--------- + + + + Left Doppler Measurements +------ +------+------+ + !Location !Signal!Reflux!Reflux (msec) ! + +------+------+ + !Common Femoral !Phasic!No ! ! + +------+------+ + !Prox Femoral !Phasic!No ! ! + +------+------+ + !Popliteal !Phasic!No ! ! + +------+------+ + Recent Results (from the past 96 hour(s)) EKG 12 Lead Collection Time: 03/17/21 2:16 PM Result Value Ref Range Ventricular Rate 73 BPM Atrial Rate 73 BPM P-R Interval 168 ms QRS Duration 92 ms Q-T Interval 366 ms QTc Calculation (Bazett) 403 ms P [place] 62 degrees R [place] 78 degrees T [place] 51 degrees Basic Metabolic Panel Collection Time: 03/17/21 2:40 PM Result Value Ref Range Glucose 92 70 - 99 mg/dL BUN 14 8 - 23 mg/dL CREATININE 1.07 (H) 0.50 - 0.90 mg/dL Bun/Cre Ratio 13 9 - 20 Calcium 9.2 8.6 - 10.4 mg/dL Sodium 140 135 - 144 mmol/L Potassium 4.0 3.7 - 5.3 mmol/L Chloride 106 98 - 107 mmol/L CO2 22 20 - 31 mmol/L Anion Gap 12 9 - 17 mmol/L GFR Non- 52 (L) >60 mL/min GFR >60 >60 mL/min GFR Comment GFR Staging Brain Natriuretic Peptide Collection Time: 03/17/21 2:40 PM Result Value Ref Range Pro-BNP 6,864 (H) <300 pg/mL BNP Interpretation NOT REPORTED CBC Auto Differential Collection Time: 03/17/21 2:40 PM Result Value Ref Range WBC 6.4 3.5 - 11.3 k/uL RBC 3.77 (L) 3.95 - 5.11 m/uL Hemoglobin 10.8 (L) 11.9 - 15.1 g/dL Hematocrit 34.3 (L) 36.3 - 47.1 % MCV 91.0 82.6 - 102.9 fL MCH 28.6 25.2 - 33.5 pg MCHC 31.5 28.4 - 34.8 g/dL RDW 16.0 (H) 11.8 - 14.4 % Platelets 195 138 - 453 k/uL MPV 9.1 8.1 - 13.5 fL NRBC Automated 0.0 0.0 per 100 WBC Differential Type NOT REPORTED Seg Neutrophils 67 (H) 36 - 65 % Lymphocytes 20 (L) 24 - 43 % Monocytes 7 3 - 12 % Eosinophils % 5 (H) 1 - 4 % Basophils 1 0 - 2 % Immature Granulocytes 0 0 % Segs Absolute 4.26 1.50 - 8.10 k/uL Absolute Lymph # 1.26 1.10 - 3.70 k/uL Absolute [place] # 0.46 0.10 - 1.20 k/uL Absolute Eos # 0.31 0.00 - 0.44 k/uL Basophils Absolute 0.05 0.00 - 0.20 k/uL Absolute Immature Granulocyte <0.03 0.00 - 0.30 k/uL WBC Morphology NOT REPORTED RBC Morphology NOT REPORTED Platelet Estimate NOT REPORTED Troponin Collection Time: 03/17/21 2:40 PM Result Value Ref Range Troponin, High Sensitivity 9 0 - 14 ng/L Troponin T NOT REPORTED <0.03 ng/mL Troponin Interp NOT REPORTED Protime-INR Collection Time: 03/17/21 2:40 PM Result Value Ref Range Protime 13.0 11.5 - 14.2 sec INR 1.0 D-Dimer, Quantitative Collection Time: 03/17/21 2:40 PM Result Value Ref Range D-Dimer, Quant 2.31 (H) 0.00 - 0.59 mg/L FEU C-Reactive Protein Collection Time: 03/17/21 2:40 PM Result Value Ref Range CRP 159.4 (H) 0.0 - 5.0 mg/L Sedimentation Rate Collection Time: 03/17/21 2:40 PM Result Value Ref Range Sed Rate 27 (H) 0 - 20 mm basic to comprehensive upgrade Collection Time: 03/17/21 2:40 PM Result Value Ref Range Total Protein 6.4 6.4 - 8.3 g/dL Albumin 3.4 (L) 3.5 - 5.2 g/dL Albumin/Globulin Ratio 1.1 1.0 - 2.5 Alkaline Phosphatase 94 35 - 104 U/L ALT 9 5 - 33 U/L AST 11 <32 U/L Total Bilirubin 0.17 (L) 0.3 - 1.2 mg/dL CBC Auto Differential Collection Time: 03/17/21 2:40 PM Result Value Ref Range WBC 6.7 3.5 - 11.3 k/uL RBC 3.79 (L) 3.95 - 5.11 m/uL Hemoglobin 11.0 (L) 11.9 - 15.1 g/dL Hematocrit 33.9 (L) 36.3 - 47.1 % MCV 89.4 82.6 - 102.9 fL MCH 29.0 25.2 - 33.5 pg MCHC 32.4 28.4 - 34.8 g/dL RDW 16.2 (H) 11.8 - 14.4 % Platelets 203 138 - 453 k/uL MPV 10.1 8.1 - 13.5 fL NRBC Automated 0.0 0.0 per 100 WBC Differential Type NOT REPORTED Seg Neutrophils 67 (H) 36 - 65 % Lymphocytes 19 (L) 24 - 43 % Monocytes 7 3 - 12 % Eosinophils % 6 (H) 1 - 4 % Basophils 1 0 - 2 % Immature Granulocytes 0 0 % Segs Absolute 4.51 1.50 - 8.10 k/uL Absolute Lymph # 1.29 1.10 - 3.70 k/uL Absolute [place] # 0.48 0.10 - 1.20 k/uL Absolute Eos # 0.38 0.00 - 0.44 k/uL Basophils Absolute 0.05 0.00 - 0.20 k/uL Absolute Immature Granulocyte <0.03 0.00 - 0.30 k/uL WBC Morphology NOT REPORTED RBC Morphology NOT REPORTED Platelet Estimate NOT REPORTED Lactate, Sepsis Collection Time: 03/17/21 4:00 PM Result Value Ref Range Lactic Acid, Sepsis 0.6 0.5 - 1.9 mmol/L Lactic Acid, Sepsis, Whole Blood NOT REPORTED 0.5 - 1.9 mmol/L Urinalysis Reflex to Culture Collection Time: 03/17/21 4:12 PM Specimen: Urine, clean catch Result Value Ref Range Color, UA Yellow Yellow Turbidity UA Clear Clear Glucose, Ur NEGATIVE NEGATIVE Bilirubin Urine NEGATIVE NEGATIVE Ketones, Urine NEGATIVE NEGATIVE Specific [place], UA 1.020 1.010 - 1.020 Urine Hgb NEGATIVE NEGATIVE pH, UA 6.5 5.0 - 9.0 Protein, UA NEGATIVE NEGATIVE Urobilinogen, Urine Normal Normal Nitrite, Urine POSITIVE (A) NEGATIVE Leukocyte Esterase, Urine NEGATIVE NEGATIVE Urinalysis Comments NOT REPORTED Microscopic Urinalysis Collection Time: 03/17/21 4:12 PM Result Value Ref Range - WBC, UA 0 TO 2 0 - 5 /HPF RBC, UA 0 TO 2 0 - 2 /HPF Casts UA NOT REPORTED /LPF Crystals, UA NOT REPORTED None /HPF Epithelial Cells UA 2 TO 5 0 - 25 /HPF Renal Epithelial, UA NOT REPORTED 0 /HPF Bacteria, UA 3+ (A) None Mucus, UA NOT REPORTED None Trichomonas, UA NOT REPORTED None Amorphous, UA NOT REPORTED None Other Observations UA NOT REPORTED NOT REQ. Yeast, UA NOT REPORTED None COVID-19, Rapid Collection Time: 03/17/21 7:02 PM Specimen: Nasopharyngeal Swab Result Value Ref Range Specimen Description .NASOPHARYNGEAL SWAB SARS-CoV-2, Rapid Not Detected Not Detected Culture, Blood 1 Collection Time: 03/17/21 9:00 PM Specimen: Blood Result Value Ref Range Specimen Description .BLOOD Special Requests 5ML RAC Culture NO GROWTH 12 HOURS Culture, Blood 1 Collection Time: 03/17/21 9:00 PM Specimen: Blood Result Value Ref Range Specimen Description .BLOOD Special Requests 10ML LAC Culture NO GROWTH 12 HOURS CBC Auto Differential Collection Time: 03/18/21 3:09 PM Result Value Ref Range WBC 5.5 3.5 - 11.3 k/uL RBC 4.52 3.95 - 5.11 m/uL Hemoglobin 13.0 11.9 - 15.1 g/dL Hematocrit 40.5 36.3 - 47.1 % MCV 89.6 82.6 - 102.9 fL MCH 28.8 25.2 - 33.5 pg MCHC 32.1 28.4 - 34.8 g/dL RDW 15.8 (H) 11.8 - 14.4 % Platelets 219 138 - 453 k/uL MPV 9.0 8.1 - 13.5 fL NRBC Automated 0.0 0.0 per 100 WBC Differential Type NOT REPORTED Seg Neutrophils 64 36 - 65 % Lymphocytes 19 (L) 24 - 43 % Monocytes 9 3 - 12 % Eosinophils % 7 (H) 1 - 4 % Basophils 1 0 - 2 % Immature Granulocytes 0 0 % Segs Absolute 3.51 1.50 - 8.10 k/uL Absolute Lymph # 1.05 (L) 1.10 - 3.70 k/uL Absolute [place] # 0.48 0.10 - 1.20 k/uL Absolute Eos # 0.36 0.00 - 0.44 k/uL Basophils Absolute 0.05 0.00 - 0.20 k/uL Absolute Immature Granulocyte <0.03 0.00 - 0.30 k/uL WBC Morphology NOT REPORTED RBC Morphology NOT REPORTED Platelet Estimate NOT REPORTED Basic Metabolic Panel w/ Reflex to MG Collection Time: 03/18/21 9:12 PM Result Value Ref Range Glucose 121 (H) 70 - 99 mg/dL BUN 13 8 - 23 mg/dL CREATININE 1.00 (H) 0.50 - 0.90 mg/dL Bun/Cre Ratio 13 9 - 20 Calcium 9.4 8.6 - 10.4 mg/dL Sodium 139 135 - 144 mmol/L Potassium 3.7 3.7 - 5.3 mmol/L Chloride 102 98 - 107 mmol/L CO2 25 20 - 31 mmol/L Anion Gap 12 9 - 17 mmol/L GFR Non- 56 (L) >60 mL/min GFR >60 >60 mL/min GFR Comment GFR Staging Basic Metabolic Panel w/ Reflex to MG Collection Time: 03/19/21 8:35 AM Result Value Ref Range Glucose 98 70 - 99 mg/dL BUN 17 8 - 23 mg/dL CREATININE 1.20 (H) 0.50 - 0.90 mg/dL Bun/Cre Ratio 14 9 - 20 Calcium 9.6 8.6 - 10.4 mg/dL Sodium 140 135 - 144 mmol/L Potassium 4.3 3.7 - 5.3 mmol/L Chloride 95 (L) 98 - 107 mmol/L CO2 32 (H) 20 - 31 mmol/L Anion Gap 13 9 - 17 mmol/L GFR Non- 46 (L) >60 mL/min GFR 55 (L) >60 mL/min GFR Comment GFR Staging CBC Auto Differential Collection Time: 03/19/21 8:35 AM Result Value Ref Range WBC 4.9 3.5 - 11.3 k/uL RBC 4.75 3.95 - 5.11 m/uL Hemoglobin 13.5 11.9 - 15.1 g/dL Hematocrit 42.9 36.3 - 47.1 % MCV 90.3 82.6 - 102.9 fL MCH 28.4 25.2 - 33.5 pg MCHC 31.5 28.4 - 34.8 g/dL RDW 15.2 (H) 11.8 - 14.4 % Platelets 254 138 - 453 k/uL MPV 9.0 8.1 - 13.5 fL NRBC Automated 0.0 0.0 per 100 WBC Differential Type NOT REPORTED Seg Neutrophils 66 (H) 36 - 65 % Lymphocytes 19 (L) 24 - 43 % Monocytes 8 3 - 12 % Eosinophils % 6 (H) 1 - 4 % Basophils 1 0 - 2 % Immature Granulocytes 0 0 % Segs Absolute 3.20 1.50 - 8.10 k/uL Absolute Lymph # 0.94 (L) 1.10 - 3.70 k/uL Absolute [place] # 0.39 0.10 - 1.20 k/uL Absolute Eos # 0.31 0.00 - 0.44 k/uL Basophils Absolute 0.04 0.00 - 0.20 k/uL Absolute Immature Granulocyte <0.03 0.00 - 0.30 k/uL WBC Morphology NOT REPORTED RBC Morphology NOT REPORTED Platelet Estimate NOT REPORTED Discharge Condition: stable Disposition: home Discharge Medications: Medication List START taking these medications doxycycline hyclate 100 MG tablet Commonly known as: VIBRA-TABS Take 1 tablet by mouth 2 times daily for 10 days furosemide 20 MG tablet Commonly known as: Lasix Take 1 tablet by mouth daily CONTINUE taking these medications albuterol (2.5 MG/3ML) 0.083% nebulizer solution Commonly known as: PROVENTIL Take 3 mLs by nebulization every 6 hours as needed for Wheezing amLODIPine 5 MG tablet Commonly known as: NORVASC aspirin EC 81 MG EC tablet Take 1 tablet by mouth daily clopidogrel 75 MG tablet Commonly known as: PLAVIX TAKE ONE TABLET BY MOUTH DAILY ibuprofen 600 MG tablet Commonly known as: ADVIL;MOTRIN Incontinence Supply Disposable Misc Incontinence pads 150 per month. Please order pad that is covered by insurance plan levothyroxine 150 MCG tablet Commonly known as: SYNTHROID Take 1 tablet by mouth daily metoprolol tartrate 25 MG tablet Commonly known as: LOPRESSOR Take 1 tablet by mouth 2 times daily nicotine 21 MG/24HR Commonly known as: NICODERM CQ Place 1 patch onto the skin daily nitroGLYCERIN 0.4 MG SL tablet Commonly known as: NITROSTAT Place 1 tablet under the tongue as needed for Chest pain OXYGEN pioglitazone 15 MG tablet Commonly known as: ACTOS Take 1 tablet by mouth daily pravastatin 40 MG tablet Commonly known as: PRAVACHOL tiZANidine 4 MG tablet Commonly known as: ZANAFLEX Take 1 tablet by mouth every 6 hours as needed (cramps) TrueTrack Test strip Generic drug: blood glucose test strips use as directed TO TEST BLOOD SUGAR three times a day Where to Get Your Medications These medications were sent to [address] [facility] - [phone] - F [phone] [facility] [place] [address] doxycycline hyclate 100 MG tablet furosemide 20 MG tablet Resume all home medications unless otherwise directed Add lasix 20 mg daily Stop smoking Patient Instructions: Activity: activity as tolerated Diet: cardiac diet Wound Care: as directed Other: Follow up with Dr Arroyo in 7 days as directed Time Spent on discharge services is 25 minutes in the examination, evaluation, counseling and review of medications and discharge plan. Signed: Caren Mera MD, M.D. 03/19/2021 1:17 PM documented in this [email or web address] Work Phone: [phone]) 335-106312-17-2021 Note [facility] Vascular Lower Extremities DVT Study Procedure Patient Name SHER Date of Study 03/17/2021 JONATAN Phillips Date of 1960 Gender Female Age 60 year(s) Race Room Number 01A Corporate ID # [id number] Patient MR # [id number] Corporate Statistical Financial Analyst Corrine Peterson Interpreting Physician Jose Mercer MD Referring Nurse Fredy Billingsley, Referring Physician Practitioner [employer]-TRUST ADMINISTRATOR Procedure Type of Study: Veins: Lower Extremities DVT Study, Venous Scan Lower Bilateral. Patient Status:ER. Comments:INDICATIONS: Rt groin pain Conclusions Summary No evidence of superficial or deep venous thrombosis in both lower extremities. Left GSV is not visualized. Signature Findings: Right Impression: Left Impression: The common femoral, femoral, The common femoral, femoral, popliteal, tibials and saphenous popliteal, tibials and saphenous veins are compressible with normal veins are compressible with normal doppler responses. doppler responses. The common femoral, femoral, popliteal, tibials and peroneal veins are compressible with normal doppler responses. GSV is not visualized. Risk Factors History +---------+ + + !Diagnosis!Date !Comments ! +---------+ + + !Other !06/11/2013!Right to left fem-to-fem bypass ! +---------+ + + Allergies - Allergy:*Unlisted(Drug). Comments:arabella simvastatin - Allergy:Codeine(Drug). - Allergy:*Unlisted(Drug). Comments:simvastatin Velocities are measured in cm/s ; Diameters are measured in cm Right Lower Extremities DVT Study Measurements Right 2D Measurements + + + + + !Location !Visualized!Compressibility!Thrombosis! + + + + + !Common Femoral !Yes !Yes !None ! + + + + + !Prox Femoral !Yes !Yes !None ! + + + + + !Mid Femoral !Yes !Yes !None ! + + + + + !Dist Femoral !Yes !Yes !None ! + + + + + !Deep Femoral !Yes !Yes !None ! + + + + + !Popliteal !Yes !Yes !None ! + + + + + !Sapheno Femoral Junction !Yes !Yes !None ! + + + + + !PTV !Yes !Yes !None ! + + + + + !Peroneal !Yes !Yes !None ! + + + + + !Gastroc !Yes !Yes !None ! + + + + + !GSV Thigh !Yes !Yes !None ! + + + + + !GSV Knee !Yes !Yes !None ! + + + + + !GSV Ankle !Yes !Yes !None (more content not included)...[facility] 02-09-2021 Hospital Discharge instructions* Instructions* Zach Bocanegra PA-C - 02/09/2021 Ice to affected area Tylenol Motrin for pain if needed Gentle range of motion Plenty of fluids Rise from seated position slowly See your doctor for recheck * Attachments The following attachments cannot be sent through Care Everywhere. * Contusion (Uruguayan) * Head Injury: Closed: General Info (Uruguayan) documented in [facility] Work Phone: [phone]) 786-640506-25-2020 Evaluation note Includes: Assessments for all patient encounters Findings Encounter Date Depressive disorder Established Patie nt with Leah Short [facility] 09/24/2019 Generalized anxiety disorder Establis hed Patient with Leah Short [facility] 09/24/2019 M54.5 - Low back pain Medical Establishe d Patient with Shawna Holliday [facility] 09/24/2019 Obesity due to excess calories Medical E stablished Patient with Shawna Holliday [facility] 09/24/2019 Z68.25 - Body mass index (BM I) 25.0-25.9, adult Medical Established Patient with Shawna Holliday [employer] ADMINISTRATOR 09/24/2019 Depressive disorder Telebehavioral He alth with Leah Short [facility] 09/15/2019 Generalized anxiety disorder [facility] with Leah Short [facility] 09/15/2019 Depressive disorder Telebehavioral He alth with Leah Short [facility] 08/26/2019 Generalized anxiety disorder [facility] with Leah Arroyo [facility] 08/26/2019 Z68.37 - Body mass index (BM I) 37.0-37.9 adult Medical Established Patient with Vahid Breweren TRUST ADMINISTRATOR 05/01/2019 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 Established Patient with Zach Grimaldo [facility] 04/14/2019 F41.1 - Generalized anxiety disorder Established Patient with Zach Grimaldo [facility] 04/14/2019 Obesity due to excess calories Medical E stablished Patient with Vahid Angelita TRUST ADMINISTRATOR 04/14/2019 Z68.36 - Body mass index (BM I) 36.0-36.9 adult Medical Established Patient with Vahid Angelita TRUST ADMINISTRATOR 04/14/2019 Obesity due to excess calories Medical E stablished Patient with Vahid Angelita TRUST ADMINISTRATOR 03/20/2019 Z68.36 - Body mass index (BM I) 36.0-36.9 adult Medical Established Patient with Vahidchristiano Breweren TRUST ADMINISTRATOR 03/20/2019 Acute atopic conjunctivitis [Acute atopic conjunctivitis left eye] Medical Established Patient with Elena King [facility] 03/03/2019 Acute sinusitis Medical Established Patient with Elena King TRUST ADMINISTRATOR 03/03/2019 Body mass index [Body mass i ndex (BMI) 35.0-35.9 adult] Medical Established Patient with Elena King [facility] 03/03/2019 Generalized anxiety disorder Establis hed Patient with Zach Grimaldo [facility] 02/19/2019 Nicotine dependence Established Patie nt with Zach Grimaldo [facility] 02/19/2019 Persistent depressive disord er (dysthymia) Established Patient with Zach Grimaldo [facility] 02/19/2019 Body mass index Medical Established Patient with Vahid Angelita TRUST ADMINISTRATOR 02/19/2019 Generalized anxiety disorder Medical Est ablished Patient with Vahid Angelita TRUST ADMINISTRATOR 02/19/2019 Lumbago Medical Established Patient with Vahid Angelita TRUST ADMINISTRATOR 02/19/2019 Lumbar radiculopathy Medical Established Patient with Vahid Angelita TRUST ADMINISTRATOR 02/19/2019 Obesity due to excess calories Medical E stablished Patient with Vahid Angelita TRUST ADMINISTRATOR 02/19/2019 Body mass index Medical Established Patient with Vahid Angelita TRUST ADMINISTRATOR 01/22/2019 Obesity due to excess calories Medical E stablished Patient with Vahid Angelita TRUST ADMINISTRATOR 01/22/2019 Body mass index [Body mass i ndex (BMI) 35.0-35.9 adult] Medical Established Patient with Elena Malik [facility] 01/12/2019 Diabetes Risk Test Score was three score 01/12/2019 Medical Established Patient with Elena Malik [facility] 01/12/2019 Fagerstrom Score was 0 01/12/2019 Medica l Established Patient with Elena Malik [facility] 01/12/2019 Limb pain of shoulder region [facility] Obesity due to excess calories Medical E stablished Patient with Elena Malik [facility] 01/12/2019 PHQ-9: total score was 18 01/12/2019 Med [facility] Assess bronchitis Medical Established Patient with Vahid Nagy [facility] 12/11/2018 Irreducible ventral hernia Medical Estab lished Patient with Vahid Nagy [facility] 12/11/2018 Obesity due to excess calories Medical E stablished Patient with Vahid Nagy [facility] 12/11/2018 Z68.32 - Body mass index (BM I) 32.0-32.9 adult Medical Established Patient with Vahid Nagy [facility] 12/11/2018 Body mass index Medical Established Patient with Vahid Nagy [facility] 10/30/2018 Assess dermatitis Medical Established Patient with Vahid Nagy [facility] 09/30/2018 Assess urinary tract infection Medical E stablished Patient with Vahid Nagy [facility] 09/30/2018 Body mass index Medical Established Patient with Vahid Nagy [facility] 08/27/2018 Obesity due to excess calories Medical E stablished Patient with Vahid Nagy [facility] 08/27/2018 F17.210 - Nicotine dependenc e, cigarettes, uncomplicated BH Established Patient with Zachernestina Grimaldo [facility] 07/28/2018 F34.1 - Dysthymic disorder Establishe d Patient with Zach Grimaldo [facility] 07/28/2018 F41.1 - Generalized anxiety disorder Established Patient with Zach Grimaldo [facility] 07/28/2018 Assess diabetes mellitus Medical Establi shed Patient with Vahid Breweren [facility] 07/28/2018 Assess generalized anxiety disorder [facility] иван Established Patient with Vahidchristiano Breweren [facility] 07/28/2018 Assess lumbago Medical Established Patient with Vahid Nagy [facility] 07/28/2018 Assess perennial allergic rh initis with seasonal variation Medical Established Patient with Vahid Angelita [facility] 07/28/2018 Body mass index Medical Established Patient with Vahid Nagy [facility] 07/28/2018 Obesity due to excess calories Medical E stablished Patient with Vahid Nagy TRUST ADMINISTRATOR 07/28/2018 Assess tobacco abuse Medical Established Patient with Vahid Nagy TRUST ADMINISTRATOR 06/27/2018 Assessment of chronic lower back pain Me dical Established Patient with Vahid Nagy TRUST ADMINISTRATOR 06/27/2018 Obesity due to excess calories Medical E stablished Patient with Vahid Nagy CNP 06/27/2018 Obesity due to excess calories Medical E stablished Patient with Vahid Nagy TRUST ADMINISTRATOR 05/30/2018 [facility] Work Phone: [phone]) 310-837501-26-2020 History of Present illness Narrative* Sowmya Llanes RN - 04/26/2019 1:10 PM EST Discharge instructions reviewed with patient, voices understanding of all. Denies questions or concerns. Discharged to home at this time with son, ambulatory to front lobby * Ziggy Smith MD - 04/26/2019 11:57 AM EST Ziggy Smith M.D. Internal Medicine Progress Note 04/26/19 SUBJECTIVE: Patient seen for f/u of Community acquired bacterial pneumonia. She is feeling much better. Denies fever or chills. States her breathing is much better. She requests a nebulizer machine and meds for home. She has O2 already set up at home. ROS: Constitutional: negative for fevers, and negative for chills. Respiratory: negative for shortness of breath, negative for cough, and negative for wheezing Cardiovascular: negative for chest pain, and negative for palpitations Gastrointestinal: negative for abdominal pain, negative for nausea,negative for vomiting, negative for diarrhea, and negative for constipation All other systems were reviewed with the patient and are negative unless otherwise stated in HPI OBJECTIVE: Vitals: Temp: 97.7 F (36.5 C) BP: (!) 155/60 Resp: 18 Pulse: 73 SpO2: 93 % 24HR INTAKE/OUTPUT: Intake/Output Summary (Last 24 hours) at 04/26/2019 1157 Last data filed at 04/26/2019 0819 Gross per 24 hour Intake 1010 ml Output Net 1010 ml Exam: GEN: Awake, alert and oriented x3. EYES: EOMI, pupils equal NECK: Supple. No lymphadenopathy. No carotid bruit CVS: regular rate and rhythm, no audible murmur PULM: diminished but clear without wheezing, rales or rhonchi, no acute respiratory distress ABD: Bowels sounds normal. Abdomen is soft. No distention. no tenderness to palpation. EXT: no edema bilaterally . No calf tenderness. NEURO: Moves all extremities. Motor and sensory are grossly intact SKIN: No rashes. No skin lesions. Diagnostic Data: All available data reviewed Lab Results Component Value Date WBC 9.3 04/26/2019 HGB 14.7 04/26/2019 MCV 91.3 04/26/2019 PLT 238 04/26/2019 Lab Results Component Value Date GLUCOSE 111 (H) 04/26/2019 BUN 14 04/26/2019 CREATININE 0.48 (L) 04/26/2019 NA 140 04/26/2019 K 4.1 04/26/2019 CALCIUM 9.1 04/26/2019 CL 100 04/26/2019 CO2 32 (H) 04/26/2019 PROBLEM LIST: Principal Problem: Community acquired bacterial pneumonia Active Problems: Smoking greater than 40 pack years CAD S/P percutaneous coronary angioplasty Tobacco abuse COPD, severity to be determined (HCC) Diabetes mellitus (HCC) Hypertension Acute on chronic respiratory failure with hypoxemia (HCC) Pneumonia due to infectious organism Resolved Problems: * No resolved hospital problems. * ASSESSMENT / PLAN: Community acquired bacterial pneumonia ? levaquin ? Nebs ? O2 ? Appreciate pulmonology input: recommend outpatient f/u with PFT's, CXR, annual low dose CT for screening and pulmonary rehab following DC Acute exacerbation of COPD ? Improved ? Off IV steroids ? Nebs ? O2 Acute respiratory failure with hypoxia and hypercapnea ? Improving ? Supplemental O2 Unresponsive episode Saturday ? Uncertain cause but likely CO2 narcosis ? Recommend outpatient sleep study to assess for BOB following DC Coronary artery disease ? Continue ASA, Plavix, Atorvastatin, Metoprolol Diabetes mellitus with diabetic neuropathy ? Continue Actos ? Continue Gabapentin for neuropathy ? Add ISS due to hypoglycemia from steroids ? Glucose levels down from 300's to 120-140's off IV steroids Peripheral vascular disease ? Continue ASA, Plavix, Atorvastatin Chronic tobacco abuse ? Smoking cessation counseling ? Pt down to 5 cigarettes per day Nutrition status: obesity, non-morbid DVT prophylaxis: Lovenox High risk medications: none Disposition: Discharge plan is home Nutrition status: obesity, non-morbid DVT prophylaxis: Lovenox High risk medications: none Disposition: Discharge plan is home Ziggy Smith M.D. 04/26/2019 11:57 AM * Margie Main RN - 04/26/2019 12:20 AM EST Pt called out for ativan, unable to administer at this time d/t it being given at 2143, pt made aware of this, pt states Everything is bugging me , attempted to get further information on statement pt would not elaborate * Margie Main RN - 04/25/2019 9:13 PM EST Pt has called out multiple times t/o shift demanding medication, educated by multiple staff memberson times medications and PRN medications, pt agitated and unpleasant, stated I am I being a bitch when store assistant entered to give timed medicationa * Gina Brown RCP - 04/25/2019 5:01 PM EST RESPIRATORY ASSESSMENT PROTOCOL Patient Name: Jonatan Olivarez Room#: 0311/0311-01 : 1960 Admitting diagnosis: Community acquired bacterial pneumonia [J15.9] Medical History: Past Medical History: Diagnosis Date Asthma Back problem Bulging discs (2 or 3), 1 cracked & 1 blackened discs CAD (coronary artery disease) stents x 3; BMS to LAD 12/2010;SPARKLE to RCA 01/2011, NL LV COPD (chronic obstructive pulmonary disease) ([facility]) Depression Diabetes mellitus (HCC) Edema chevy legs feet H/O cardiac catheterization 01/01/2011 Hernia of abdominal wall 2012 History of cardiovascular stress test 10/15/12 Abnormal myocardial perfusion study, small to mod perfusion defect of mild intensity in the anterolateral and lateral regions during stress imaging, LV function NL, no wall motion abnormalities, No significant EKG evidence of ischemia during monitoring w/o significant arrhythmias. History of echocardiogram 02/24/2018 EF 60%. Mildly increased LV wall thickness. Evidence of mild diastolic dysfunction seen. History of stress test 04/23/2017 Largerly normal myocardial perfusion imaging with soft tissue artifact, but without signficant evidence of myocardial ischemia or infarction. EF 73%. Hx of blood clots abdomen Hypertension Hypothyroidism Leg pain, bilateral rate 10 Wears partial dentures upper PATIENT ASSESSMENT LABORATORY DATA Hematology: Lab Results Component Value Date WBC 9.3 04/25/2019 RBC 4.89 04/25/2019 RBC 4.28 05/21/2011 HGB 14.1 04/25/2019 HCT 45.2 04/25/2019 PLT 239 04/25/2019 PLT 205 05/21/2011 Chemistry: Lab Results Component Value Date PHART 7.332 04/23/2019 [id number] 51.2 04/23/2019 PO2ART 61.2 04/23/2019 [id number] 89.6 04/23/2019 [id number] 26.5 04/23/2019 PBEA NOT REPORTED 04/23/2019 VITALS Pulse: 65 Resp: 18 BP: (!) 151/71 SpO2: 96 % O2 Device: Nasal cannula Temp: 97.6 F (36.4 C) SKIN COLOR [x] Normal [] Pale [] Dusky [] Cyanotic RESPIRATORY PATTERN [x] Normal [] Dyspnea [] Devin-Gallardo [] Kussmaul [] Biots AMBULATORY [x] Yes [] No [] With Assistance Patient Acuity 0 1 2 3 4 Score Level of Concious (LOC) [x] Alert & Oriented or Pt normal LOC [] Confused;follows directions [] Confused & uncooper-ative [] Obtunded [] Comatose 0 Respiratory Rate (RR) [x] Reg. rate & pattern. 12 - 20 bpm [] Increased RR. Greater than 20 bpm [] SOB w/ exertion or RR greater than 24 bpm [] Access- ory muscle use at rest. Abn. resp. [] SOB at rest. 0 Bilateral Breath Sounds (BBS) [] Clear [] Diminish-ed bases [x] Diminish-ed t/o, or rales [] Sporadic, scattered wheezes or rhonchi [] Persistentwheezes and, or absent BBS 2 Cough [] Strong, effective, & non-prod. [x] Effective & prod. Less than 25 ml (2 TBSP) over past 24 hrs [] Ineffective & non-prod to less than 25 ML over past 24 hrs [] Ineffective and, or greater than 25 ml sputum prod. past 24 hrs. [] Nonspon- taneous; Requires suctioning 1 Pulmonary History (PULM HX) [] No smoking and no chronic pulmonaryhistory [] Former smoker. Quit over 12 mos. ago [] Current smoker or quit w/ in 12 mos [] Pulm. History and, or 20 pk/yr smoking hx [x] Admitted w/ acute pulm. dx and, or has been admitted w/ pulm. dx 2 or more times over past 12 mos 4 Surgical History this Admit (SURG HX) [x] No surgery [] General surgery [] Lower abdominal [] Thoracic or upper abdominal [] Thoracic w/ pulm. disease 0 Chest X-Ray (CXR)/CT Scan [] Clear or not applicable [] Not available [] Atelect- asis or pleural effusions [] Localized infiltrate or pulm. edema [x] Con-solidated Infiltrates, bilateral, or in more than 1 lobe 4 Slow or Forced VC, FEV1 OR PEFR (PULM FXN) [x] 80% or greater, or not indicated [] Pt. unable to perform [] FEV1 or PEFR or VC 51-79%. [] FEV1 or PEFR or VC 30-49% [] FEV1 or PEFR or VC less than 30% 0 TOTAL ACUITY: 11 CARE PLAN If Acuity Level is 2, 3, or 4 in any of the following: [] BILATERAL BREATH SOUNDS (BBS) [] PULMONARY HISTORY (PULM HX) [] PULMONARY FUNCTION (PULM FX) Goal: Improve respiratory functions in patients with airway disease and decrease WOB [x] AEROSOL PROTOCOL Total Acuity: 16-32 [] Secondary Assessment in 24 hrs Total Acuity: 9-15 [x] Secondary Assessment in 24 hrs Total Acuity: 4-8 [] Secondary Assessment in 48 hrs Total Acuity: 0-3 [] Secondary Assessment in 72 hrs HHN AEROSOL THERAPY with [physician-ordered bronchodilator(s)] q 4 & Albuterol PRN q2 hrs. Breath-Actuated Neb if BBS Acuity = 4, and pt. can use MP. Notify physician if condition deteriorates. HHN AEROSOL THERAPY with [physician-ordered bronchodilator(s)] QID and Albuterol PRN q4 hrs. Breath-Actuated Neb if BBS Acuity = 4, and pt. can use MP. Notify physician if condition deteriorates. MDI THERAPY with 2 actuations of [physician-ordered bronchodilator(s)] via spacer TID Albuterol and PRNq4 hrs. If unable to utilize MDI: HHN [physician-ordered bronchodilator(s)] TID and Albuterol PRN q4 hrs. Notify physician if condition deteriorates. MDI THERAPY with [physician-ordered bronchodilator(s)] via spacer TID PRN. If unable to utilize MDI: HHN [physician-ordered bronchodilator(s)] TID PRN. Notify physician if condition deteriorates. If Acuity Level is 2, 3, or 4 in any of the following: [] COUGH [] SURGICAL HISTORY (SURG HX) [] CHEST XRAY (CXR) Goal: Improvement in sputum mobilization in patients with ineffective airway clearance. Reverse atelectasis. [x] Bronchopulmonary Hygiene Protocol Total Acuity: 16-32 [] Secondary Assessment in 24 hrs Total Acuity: 9-15 [x] Secondary Assessment in 24 hrs Total Acuity: 4-8 [] Secondary Assessment in 48 hrs Total Acuity: 0-3 [] Secondary Assessment in 72 hrs METANEB QID with [physician-ordered bronchodilator(s)] if CXR Acuity = 4; otherwise: PD&P, PEP, or Vest QID & PRN NT Sxn PRN for ineffective cough METANEB QID with [physician-ordered bronchodilator(s)] if CXR Acuity = 4; otherwise: PD&P, PEP, or Vest TID & PRN NT Sxn PRN for ineffective cough Instruct patient to self-perform IS q1hr WA Directed Cough self-performed q1hr WA If Acuity Level is 2 or above in the following: [] PULMONARY HISTORY (PULM HX) Goal: Assist patient in quitting smoking to slow or stop the progression of lung disease. [] Smoking Cessation Protocol SMOKING CESSATION EDUCATION provided according to policy RT_201: (gordo with an X) ____Yes ____ No ____ NA Smoking Cessation Booklet given: ____Yes ____No ____Patient Refused * Tiarra Mcrae RN - 04/25/2019 4:15 PM EST Pt found to be drinking a milkshake from fast food restaurant, she states that her son brought it in for her. Pt educated on following Carb Control diet but just stares at chief writer and states I reallydon't care. Will continue to monitor. * Ziggy Smith MD - 04/25/2019 9:29 AM EST Ziggy Smith M.D. Internal Medicine Progress Note 04/25/19 SUBJECTIVE: Patient seen for f/u of Community acquired bacterial pneumonia. She is still coughing quite a bit. Her wheezing is improving and her SOB has resolved. Denies fever or chills. Denies abd pain, nausea,vomiting or diarrhea. Her cough is worse with deep inspiration. She denies any chest pain. ROS: Constitutional: negative for fevers, and negative for chills. Respiratory: negative for shortness of breath, positive for cough, and positive for wheezing Cardiovascular: negative for chest pain, and negative for palpitations Gastrointestinal: negative for abdominal pain, negative for nausea,negative for vomiting, negative for diarrhea, and negative for constipation All other systems were reviewed with the patient and are negative unless otherwise stated in HPI OBJECTIVE: Vitals: Temp: 97.8 F (36.6 C) BP: (!) 185/89 Resp: 18 Pulse: 67 SpO2: 97 % 24HR INTAKE/OUTPUT: Intake/Output Summary (Last 24 hours) at 04/25/2019 0936 Last data filed at 04/25/2019 05 Gross per 24 hour Intake 500 ml Output 200 ml Net 300 ml Exam: GEN: Awake, alert and oriented x3. EYES: EOMI, pupils equal NECK: Supple. No lymphadenopathy. No carotid bruit CVS: regular rate and rhythm, no audible murmur PULM: diminished with mild scattered rhonchi in LL's, no wheezing noted, no acute respiratory distress ABD: Bowels sounds normal. Abdomen is soft. No distention. no tenderness to palpation. EXT: no edema bilaterally . No calf tenderness. NEURO: Moves all extremities. Motor and sensory are grossly intact SKIN: No rashes. No skin lesions. Diagnostic Data: All available data reviewed Lab Results Component Value Date WBC 9.3 04/25/2019 HGB 14.1 04/25/2019 MCV 92.4 04/25/2019 PLT 239 04/25/2019 Lab Results Component Value Date GLUCOSE 145 (H) 04/25/2019 BUN 12 04/25/2019 CREATININE 0.42 (L) 04/25/2019 NA 142 04/25/2019 K 4.0 04/25/2019 CALCIUM 9.0 04/25/2019 CL 100 04/25/2019 CO2 29 04/25/2019 PROBLEM LIST: Principal Problem: Community acquired bacterial pneumonia Active Problems: Smoking greater than 40 pack years CAD S/P percutaneous coronary angioplasty Tobacco abuse COPD, severity to be determined (HCC) Diabetes mellitus (HCC) Hypertension Acute on chronic respiratory failure with hypoxemia (HCC) Pneumonia due to infectious organism Resolved Problems: * No resolved hospital problems. * ASSESSMENT / PLAN: Community acquired bacterial pneumonia ? IV levaquin ? Nebs ? O2 ? Appreciate pulmonology input: recommend outpatient f/u with PFT's, CXR, annual low dose CT for screening and pulmonary rehab following DC Acute exacerbation of COPD ? Improved ? Off IV steroids ? Nebs ? O2 Acute respiratory failure with hypoxia and hypercapnea ? Monitor ABG ? Supplemental O2 Unresponsive episode Saturday ? Uncertain cause but likely CO2 narcosis ? Recommend outpatient sleep study to assess for BOB following DC Chronic pain syndrome right arm ? Pt requesting a vicodin or something for her pain Coronary artery disease ? Continue ASA, Plavix, Atorvastatin, Metoprolol Diabetes mellitus with diabetic neuropathy ? Continue Actos ? Continue Gabapentin for neuropathy ? Add ISS due to hypoglycemia from steroids ? Glucose levels down from 300's to 124-145 Peripheral vascular disease ? Continue ASA, Plavix, Atorvastatin Chronic tobacco abuse ? Smoking cessation counseling ? Pt down to 5 cigarettes per day Nutrition status: obesity, non-morbid DVT prophylaxis: Lovenox High risk medications: none Disposition: Discharge plan is home Nutrition status: obesity, non-morbid DVT prophylaxis: Lovenox High risk medications: none Disposition: Discharge plan is home likely tomorrow Ziggy Smith M.D. 04/25/2019 9:29 AM * Margie Main RN - 04/25/2019 5:56 AM EST Pt refused staff to remove belonging or extra linen from bed to get an accurate weight. Multiple attempts and educated provided. 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 * Susie Batista RN - 04/24/2019 3:02 PM EST Afternoon assessment completed. See flow sheet for details. Pt requesting snack. Denies other needsat this time. Fresh water supplied. Call light in reach. Will continue to monitor. * Susie Batista RN - 04/24/2019 12:40 PM EST Pt not complaint with carb control diet. Family member brought her in a milk shake. * Ziggy Smith MD - 04/24/2019 7:01 AM EST Ziggy Smith M.D. ICU Progress Note 04/24/19 SUBJECTIVE: Pt seen and examined in the ICU for follow up of Community acquired bacterial pneumonia, COPD exacerbation and acute on chronic respiratory failure with hypoxia and hypercapnea. She is still coughingbut unable to produce any mucus. SOB is better. Denies fever, chills, chest pain or palpitations. ROS: Constitutional: negative for fevers, and negative for chills. Respiratory: positive for shortness of breath, positive for cough, and positive for wheezing Cardiovascular: negative for chest pain, and negative for palpitations Gastrointestinal: negative for abdominal pain, negative for nausea,negative for vomiting, negative for diarrhea, and negative for constipation All other systems were reviewed with the patient and are negative unless otherwise stated in HPI. OBJECTIVE: Vitals: Temp: 98 F (36.7 C) Temp range: Temp Av.3 F (36.8 C) Min: 98 F (36.7 C) Max: 98.7 F (37.1 C) BP: (!) 185/105(moving arm, drinking coffee) BP Range: Systolic (24hrs), Av , Min:130 , Max:185 Diastolic (24hrs), Av, Min:65, Max:105 Pulse: 66 Pulse Range: Pulse Av.9 Min: 64 Max: 81 Resp: 20 Resp Range: Resp Av.7 Min: 10 Max: 22 SpO2: 96 % on supplemental O2 SpO2 range: SpO2 Av.4 % Min: 83 % Max: 96 % 24HR INTAKE/OUTPUT: Intake/Output Summary (Last 24 hours) at 04/24/2019 0701 Last data filed at 04/24/2019 0655 Gross per 24 hour Intake 1290 ml Output 1275 ml Net 15 ml Exam: GEN: Awake, alert and oriented x3. EYES: EOMI, pupils equal NECK: Supple. No lymphadenopathy. No carotid bruit CVS: regular rate and rhythm, no audible murmur PULM: mild rales/rhonchi in bases, otherwise clear, no acute respiratory distress ABD: Bowels sounds normal. Abdomen is soft. No distention. no tenderness to palpation. EXT: no edema bilaterally . No calf tenderness. NEURO: Moves all extremities. Motor and sensory are grossly intact SKIN: No rashes. No skin lesions. Diagnostic Data: All lines, drips, IV sites and medications reviewed All available data reviewed Lab Results Component Value Date WBC 15.9 (H) 04/22/2019 HGB 14.3 04/22/2019 MCV 93.5 04/22/2019 PLT 208 04/22/2019 Lab Results Component Value Date SEGS 95 (H) 04/22/2019 LYMPHOPCT 5 (L) 04/22/2019 MONOPCT 0 (L) 04/22/2019 EOSRELPCT 0 (L) 04/22/2019 BASOPCT 0 04/22/2019 NEUTROABS 15.10 (H) 04/22/2019 Lab Results Component Value Date GLUCOSE 208 (H) 04/22/2019 BUN 12 04/22/2019 CREATININE 0.41 (L) 04/22/2019 NA 137 04/22/2019 K 4.1 04/22/2019 CALCIUM 8.7 04/22/2019 CL 100 04/22/2019 CO2 25 04/22/2019 Lab Results Component Value Date LACTA 1.2 04/22/2019 PROBLEM LIST: Principal Problem: Community acquired bacterial pneumonia Active Problems: Smoking greater than 40 pack years CAD S/P percutaneous coronary angioplasty Tobacco abuse COPD, severity to be determined (HCC) Diabetes mellitus (HCC) Hypertension Acute on chronic respiratory failure with hypoxemia (HCC) Pneumonia due to infectious organism Resolved Problems: * No resolved hospital problems. * ASSESSMENT / PLAN: Community acquired bacterial pneumonia ? IV levaquin ? Nebs ? O2 ? Appreciate pulmonology input: recommend outpatient f/u with PFT's, CXR, annual low dose CT for screening and pulmonary rehab following DC Acute exacerbation of COPD ? IV steroids ? Nebs ? O2 Acute respiratory failure with hypoxia and hypercapnea ? Monitor ABG ? Supplemental O2 Unresponsive episode Saturday ? Uncertain cause but likely CO2 narcosis ? Recommend outpatient sleep study to assess for BOB following DC Chronic pain syndrome right arm ? Pt requesting a vicodin or something for her pain Coronary artery disease ? Continue ASA, Plavix, Atorvastatin, Metoprolol Diabetes mellitus with diabetic neuropathy ? Continue Actos ? Continue Gabapentin for neuropathy ? Add ISS due to hypoglycemia from steroids Peripheral vascular disease ? Continue ASA, Plavix, Atorvastatin Chronic tobacco abuse Smoking cessation counseling Pt down to 5 cigarettes per day Nutrition status: obesity, non-morbid DVT prophylaxis: Lovenox High risk medications: none Disposition: Discharge plan is home Nutrition status: obesity, non-morbid DVT prophylaxis: Lovenox High risk medications: none Disposition: transfer to [facility] today Discharge plan is home next day or two Ziggy Smith M.D. 04/24/2019 7:01 AM * Berta Almanzar, [facility] - 04/24/2019 2:27 AM EST RESPIRATORY ASSESSMENT PROTOCOL Patient Name: Jonatan Phillips Challis Room#: I305/I305-01 : 1960 Admitting diagnosis: Community acquired bacterial pneumonia [J15.9] Medical History: Past Medical History: Diagnosis Date Asthma Back problem Bulging discs (2 or 3), 1 cracked & 1 blackened discs CAD (coronary artery disease) stents x 3; BMS to LAD 12/2010;SPARKLE to RCA 01/2011, NL LV COPD (chronic obstructive pulmonary disease) ([facility]) Depression Diabetes mellitus ([facility]) Edema chevy legs feet H/O cardiac catheterization 01/01/2011 Hernia of abdominal wall 2012 History of cardiovascular stress test 10/15/12 Abnormal myocardial perfusion study, small to mod perfusion defect of mild intensity in the anterolateral and lateral regions during stress imaging, LV function NL, no wall motion abnormalities, No significant EKG evidence of ischemia during monitoring w/o significant arrhythmias. History of echocardiogram 02/24/2018 EF 60%. Mildly increased LV wall thickness. Evidence of mild diastolic dysfunction seen. History of stress test 04/23/2017 Largerly normal myocardial perfusion imaging with soft tissue artifact, but without signficant evidence of myocardial ischemia or infarction. EF 73%. Hx of blood clots abdomen Hypertension Hypothyroidism Leg pain, bilateral rate 10 Wears partial dentures upper PATIENT ASSESSMENT LABORATORY DATA Hematology: Lab Results Component Value Date WBC 15.9 04/22/2019 RBC 4.94 04/22/2019 RBC 4.28 05/21/2011 HGB 14.3 04/22/2019 HCT 46.2 04/22/2019 PLT 208 04/22/2019 PLT 205 05/21/2011 Chemistry: Lab Results Component Value Date PHART 7.332 04/23/2019 [id number] 51.2 04/23/2019 PO2ART 61.2 04/23/2019 [id number] 89.6 04/23/2019 [id number] 26.5 04/23/2019 PBEA NOT REPORTED 04/23/2019 Blood Culture:* Sputum Culture: VITALS Pulse: 70 Resp: 18 BP: (!) 164/67 SpO2: 93 % O2 Device: Nasal cannula Temp: 98.4 F (36.9 C) Comment: SKIN COLOR [x] Normal [] Pale [] Dusky [] Cyanotic RESPIRATORY PATTERN [x] Normal [] Dyspnea [] Devin-Gallardo [] Kussmaul [] Biots AMBULATORY [] Yes [] No [x] With Assistance PEAK FLOW Predicted: Personal Best: VITAL CAPACITY Predicted value: ml Actual Value: ml 30% of Predicted: Ml Patient Acuity 0 1 2 3 4 Score Level of Concious (LOC) [x] Alert & Oriented or Pt normal LOC [] Confused;follows directions [] Confused & uncooper-ative [] Obtunded [] Comatose 0 Respiratory Rate (RR) [] Reg. rate & pattern. 12 - 20 bpm [x] Increased RR. Greater than 20 bpm [] SOB w/ exertion or RR greater than 24 bpm [] Access- ory muscle use at rest. Abn. resp. [] SOB at rest. 1 Bilateral Breath Sounds (BBS) [] Clear [] Diminish-ed bases [x] Diminish-ed t/o, or rales [] Sporadic, scattered wheezes or rhonchi [] Persistentwheezes and, or absent BBS 2 Cough [x] Strong, effective, & non-prod. [] Effective & prod. Less than 25 ml (2 TBSP) over past 24 hrs [] Ineffective & non-prod to less than 25 ML over past 24 hrs [] Ineffective and, or greater than 25 ml sputum prod. past 24 hrs. [] Nonspon- taneous; Requires suctioning 0 Pulmonary History (PULM HX) [] No smoking and no chronic pulmonaryhistory [] Former smoker. Quit over 12 mos. ago [] Current smoker or quit w/ in 12 mos [] Pulm. History and, or 20 pk/yr smoking hx [x] Admitted w/ acute pulm. dx and, or has been admitted w/ pulm. dx 2 or more times over past 12 mos 4 Surgical History this Admit (SURG HX) [x] No surgery [] General surgery [] Lower abdominal [] Thoracic or upper abdominal [] Thoracic w/ pulm. disease 0 Chest X-Ray (CXR)/CT Scan [] Clear or not applicable [] Not available [] Atelect- asis or pleural effusions [] Localized infiltrate or pulm. edema [x] Con-solidated Infiltrates, bilateral, or in more than 1 lobe 4 Slow or Forced VC, FEV1 OR PEFR (PULM FXN) [x] 80% or greater, or not indicated [] Pt. unable to perform [] FEV1 or PEFR or VC 51-79%. [] FEV1 or PEFR or VC 30-49% [] FEV1 or PEFR or VC less than 30% 0 TOTAL ACUITY: 11 CARE PLAN If Acuity Level is 2, 3, or 4 in any of the following: [x] BILATERAL BREATH SOUNDS (BBS) [x] PULMONARY HISTORY (PULM HX) [] PULMONARY FUNCTION (PULM FX) Goal: Improve respiratory functions in patients with airway disease and decrease WOB [x] AEROSOL PROTOCOL Total Acuity: 16-32 [] Secondary Assessment in 24 hrs Total Acuity: 9-15 [x] Secondary Assessment in 24 hrs Total Acuity: 4-8 [] Secondary Assessment in 48 hrs Total Acuity: 0-3 [] Secondary Assessment in 72 hrs HHN AEROSOL THERAPY with [physician-ordered bronchodilator(s)] q 4 & Albuterol PRN q2 hrs. Breath-Actuated Neb if BBS Acuity = 4, and pt. can use MP. Notify physician if condition deteriorates. HHN AEROSOL THERAPY with [physician-ordered bronchodilator(s)] QID and Albuterol PRN q4 hrs. Breath-Actuated Neb if BBS Acuity = 4, and pt. can use MP. Notify physician if condition deteriorates. MDI THERAPY with 2 actuations of [physician-ordered bronchodilator(s)] via spacer TID Albuterol and PRNq4 hrs. If unable to utilize MDI: HHN [physician-ordered bronchodilator(s)] TID and Albuterol PRN q4 hrs. Notify physician if condition deteriorates. MDI THERAPY with [physician-ordered bronchodilator(s)] via spacer TID PRN. If unable to utilize MDI: HHN [physician-ordered bronchodilator(s)] TID PRN. Notify physician if condition deteriorates. If Acuity Level is 2, 3, or 4 in any of the following: [] COUGH [] SURGICAL HISTORY (SURG HX) [x] CHEST XRAY (CXR) Goal: Improvement in sputum mobilization in patients with ineffective airway clearance. Reverse atelectasis. [x] Bronchopulmonary Hygiene Protocol Total Acuity: 16-32 [] Secondary Assessment in 24 hrs Total Acuity: 9-15 [x] Secondary Assessment in 24 hrs Total Acuity: 4-8 [] Secondary Assessment in 48 hrs Total Acuity: 0-3 [] Secondary Assessment in 72 hrs METANEB QID with [physician-ordered bronchodilator(s)] if CXR Acuity = 4; otherwise: PD&P, PEP, or Vest QID & PRN NT Sxn PRN for ineffective cough METANEB QID with [physician-ordered bronchodilator(s)] if CXR Acuity = 4; otherwise: PD&P, PEP, or Vest TID & PRN NT Sxn PRN for ineffective cough Instruct patient to self-perform IS q1hr WA Directed Cough self-performed q1hr WA If Acuity Level is 2 or above in the following: [] PULMONARY HISTORY (PULM HX) Goal: Assist patient in quitting smoking to slow or stop the progression of lung disease. [] Smoking Cessation Protocol SMOKING CESSATION EDUCATION provided according to policy RT_201: (gordo with an X) ____Yes ____ No ____ NA Smoking Cessation Booklet given: ____Yes ____No ____Patient Refused * Berta Almanzar RCP - 04/24/2019 1:10 AM EST Pt awake in room. I asked pt if she would like to go on BIPAP at this time. Pt states Not now, maybe later. I just want to relax and sleep tonight. That machine feels like it's sucking all of the air out of my lungs. I didn't sleep at all last night with it RN notified. RT unsuccessful with coaxing pt to use machine. * Marita Bonilla RN - 04/23/2019 10:44 PM EST Patient states headache is gone, shoulder pain much better 4/10, but feet still hurt and is jumping . Patient would like to try Ativan when it is due and try to sleep. Continue to monitor Marita Hummel RN - 04/23/2019 8:28 PM EST Patient awake sitting up in bed typing on phone. Patient states pain is not any better remains 9/10. Respirations unlabored. Continue to monitor. Marita Hummel RN - 04/23/2019 7:39 PM EST Patient uses call light. Assessment completed. Patient complains of left shoulder and bilat foot pain that is chronic and a headache. Ibuprofen 800mg prn given as ordered. Patient rates pain 9/10. Patient ambulates to bathroom with steady gait with standby assist and back to bed. SpO2 after gettingback to bed 83% with nasal cannula at 3LPM with extension tubing Patient states wanting to sleep. Lights turned off and informed patient chief writer will be in around 2100 for HS medications. Patient verbalizes understanding. Continue to monitor A * Brit Batista RN - 04/23/2019 5:45 PM EST Pt requesting her ativan and c/o feeling anxious at this time, ativan given per prn orders, see mar. A * Brit Batista RN - 04/23/2019 1:25 PM EST Pt sitting up in chair, awake and watching TV. Sp02 dropping to 83-85% on oxygen NC 2L, increased to 2.5L at this time. * Bea Mireles, LEADERSHIP PROGRAM INTERN - 04/23/2019 1:08 PM EST RESPIRATORY ASSESSMENT PROTOCOL Patient Name: Jonatan Olivarez Room#: I305/[id number] : 1960 Admitting diagnosis: Community acquired bacterial pneumonia [J15.9] Medical History: Past Medical History: Diagnosis Date Asthma Back problem Bulging discs (2 or 3), 1 cracked & 1 blackened discs CAD (coronary artery disease) stents x 3; BMS to LAD 12/2010;SPARKLE to RCA 01/2011, NL LV COPD (chronic obstructive pulmonary disease) ([facility]) Depression Diabetes mellitus ([facility]) Edema chevy legs feet H/O cardiac catheterization 01/01/2011 Hernia of abdominal wall 2012 History of cardiovascular stress test 10/15/12 Abnormal myocardial perfusion study, small to mod perfusion defect of mild intensity in the anterolateral and lateral regions during stress imaging, LV function NL, no wall motion abnormalities, No significant EKG evidence of ischemia during monitoring w/o significant arrhythmias. History of echocardiogram 02/24/2018 EF 60%. Mildly increased LV wall thickness. Evidence of mild diastolic dysfunction seen. History of stress test 04/23/2017 Largerly normal myocardial perfusion imaging with soft tissue artifact, but without signficant evidence of myocardial ischemia or infarction. EF 73%. Hx of blood clots abdomen Hypertension Hypothyroidism Leg pain, bilateral rate 10 Wears partial dentures upper PATIENT ASSESSMENT LABORATORY DATA Hematology: Lab Results Component Value Date WBC 15.9 04/22/2019 RBC 4.94 04/22/2019 RBC 4.28 05/21/2011 HGB 14.3 04/22/2019 HCT 46.2 04/22/2019 PLT 208 04/22/2019 PLT 205 05/21/2011 Chemistry: Lab Results Component Value Date PHART 7.332 04/23/2019 [id number] 51.2 04/23/2019 PO2ART 61.2 04/23/2019 [id number] 89.6 04/23/2019 [id number] 26.5 04/23/2019 PBEA NOT REPORTED 04/23/2019 Blood Culture: Sputum Culture: VITALS Pulse: 81 Resp: 22 BP: 134/70 SpO2: (!) 86 % O2 Device: Nasal cannula Temp: 98.4 F (36.9 C) Comment: SKIN COLOR [] Normal [] Pale [] Dusky [] Cyanotic RESPIRATORY PATTERN [] Normal [] Dyspnea [] Devin-Gallardo [] Kussmaul [] Biots AMBULATORY [] Yes [] No [] With Assistance PEAK FLOW Predicted: Personal Best: VITAL CAPACITY Predicted value: ml Actual Value: ml 30% of Predicted: ml Patient Acuity 0 1 2 3 4 Score Level of Concious (LOC) [x] Alert & Oriented or Pt normal LOC [] Confused;follows directions [] Confused & uncooper-ative [] Obtunded [] Comatose 0 Respiratory Rate (RR) [] Reg. rate & pattern. 12 - 20 bpm [] Increased RR. Greater than 20 bpm [x] SOB w/ exertion or RR greater than 24 bpm [] Access- ory muscle use at rest. Abn. resp. [] SOB at rest. 2 Bilateral Breath Sounds (BBS) [] Clear [x] Diminish-ed bases [] Diminish-ed t/o, or rales [] Sporadic, scattered wheezes or rhonchi [] Persistentwheezes and, or absent BBS 1 Cough [] Strong, effective, & non-prod. [x] Effective & prod. Less than 25 ml (2 TBSP) over past 24 hrs [] Ineffective & non-prod to less than 25 ML over past 24 hrs [] Ineffective and, or greater than 25 ml sputum prod. past 24 hrs. [] Nonspon- taneous; Requires suctioning 1 Pulmonary History (PULM HX) [] No smoking and no chronic pulmonaryhistory [] Former smoker. Quit over 12 mos. ago [] Current smoker or quit w/ in 12 mos [] Pulm. History and, or 20 pk/yr smoking hx [x] Admitted w/ acute pulm. dx and, or has been admitted w/ pulm. dx 2 or more times over past 12 mos 4 Surgical History this Admit (SURG HX) [x] No surgery [] General surgery [] Lower abdominal [] Thoracic or upper abdominal [] Thoracic w/ pulm. disease 0 Chest X-Ray (CXR)/CT Scan [] Clear or not applicable [] Not available [] Atelect- asis or pleural effusions [] Localized infiltrate or pulm. edema [x] Con-solidated Infiltrates, bilateral, or in more than 1 lobe 4 Slow or Forced VC, FEV1 OR PEFR (PULM FXN) [x] 80% or greater, or not indicated [] Pt. unable to perform [] FEV1 or PEFR or VC 51-79%. [] FEV1 or PEFR or VC 30-49% [] FEV1 or PEFR or VC less than 30% 0 TOTAL ACUITY: 12 CARE PLAN If Acuity Level is 2, 3, or 4 in any of the following: [] BILATERAL BREATH SOUNDS (BBS) [x] PULMONARY HISTORY (PULM HX) [] PULMONARY FUNCTION (PULM FX) Goal: Improve respiratory functions in patients with airway disease and decrease WOB [x] AEROSOL PROTOCOL Total Acuity: 16-32 [] Secondary Assessment in 24 hrs Total Acuity: 9-15 [x] Secondary Assessment in 24 hrs Total Acuity: 4-8 [] Secondary Assessment in 48 hrs Total Acuity: 0-3 [] Secondary Assessment in 72 hrs HHN AEROSOL THERAPY with [physician-ordered bronchodilator(s)] q 4 & Albuterol PRN q2 hrs. Breath-Actuated Neb if BBS Acuity = 4, and pt. can use MP. Notify physician if condition deteriorates. HHN AEROSOL THERAPY with [physician-ordered bronchodilator(s)] QID and Albuterol PRN q4 hrs. Breath-Actuated Neb if BBS Acuity = 4, and pt. can use MP. Notify physician if condition deteriorates. MDI THERAPY with 2 actuations of [physician-ordered bronchodilator(s)] via spacer TID Albuterol and PRNq4 hrs. If unable to utilize MDI: HHN [physician-ordered bronchodilator(s)] TID and Albuterol PRN q4 hrs. Notify physician if condition deteriorates. MDI THERAPY with [physician-ordered bronchodilator(s)] via spacer TID PRN. If unable to utilize MDI: HHN [physician-ordered bronchodilator(s)] TID PRN. Notify physician if condition deteriorates. If Acuity Level is 2, 3, or 4 in any of the following: [] COUGH [] SURGICAL HISTORY (SURG HX) [x] CHEST XRAY (CXR) Goal: Improvement in sputum mobilization in patients with ineffective airway clearance. Reverse atelectasis. [x] Bronchopulmonary Hygiene Protocol Total Acuity: 16-32 [] Secondary Assessment in 24 hrs Total Acuity: 9-15 [x] Secondary Assessment in 24 hrs Total Acuity: 4-8 [] Secondary Assessment in 48 hrs Total Acuity: 0-3 [] Secondary Assessment in 72 hrs METANEB QID with [physician-ordered bronchodilator(s)] if CXR Acuity = 4; otherwise: PD&P, PEP, or Vest QID & PRN NT Sxn PRN for ineffective cough METANEB QID with [physician-ordered bronchodilator(s)] if CXR Acuity = 4; otherwise: PD&P, PEP, or Vest TID & PRN NT Sxn PRN for ineffective cough Instruct patient to self-perform IS q1hr WA Directed Cough self-performed q1hr WA If Acuity Level is 2 or above in the following: [] PULMONARY HISTORY (PULM HX) Goal: Assist patient in quitting smoking to slow or stop the progression of lung disease. [] Smoking Cessation Protocol SMOKING CESSATION EDUCATION provided according to policy [id number]: (gordo with an X) ____Yes ____ No ____ NA Smoking Cessation Booklet given: ____Yes ____No ____Patient Refused * Katelyn Tubbs SLP - 04/23/2019 12:28 PM EST Speech Language Pathology Facility/Department: [facility] ICU CLINICAL BEDSIDE SWALLOW TREATMENT AND DISCHARGE NAME: Jonatan Olivarez : 1960 ADMISSION DATE: 04/21/2019 Visit Diagnoses Codes Pneumonia due to organism - Primary J18.9 Past Medical History: has a past medical history of Asthma, Back problem, CAD (coronary artery disease), COPD (chronic obstructive pulmonary disease) (HCC), Depression, Diabetes mellitus (H[facility]), Edema, H/O cardiac catheterization, Hernia of abdominal wall, History of cardiovascular stress test, History of echocardiogram, History of stress test, Hx of blood clots, Hypertension, Hypothyroidism, Leg pain, bilateral, and Wears partial dentures. Past Surgical History: has a past surgical history that includes Cholecystectomy; Hysterectomy; femoral bypass; Cardiac surgery; Cardiac catheterization; vascular surgery; Aorta surgery (05/2016); and Cardiac catheterization (Left, 02/25/2018). Date: 04/23/2019 Therapist: Katelyn Tubbs Current Diet level: Current Diet : Regular Current Liquid Diet : Thin Primary Complaint: PNA. ST evaluated pt previous day at bedside and pt demonstrated largely WFL function with swallowing however pt then moved to ICU after ST evaluation. ST made clinical judgement to follow up x1 withpt for meal assessment to ensure regular, thin diet tolerance and to ensure safety of least restrictive diet with pt's medical status change/movement to ICU. Pain: Pain Assessment Pain Assessment: 0-10 Pain Level: 4 Pain Type: Chronic pain Pain Location: Shoulder, Arm Pain Orientation: Right Pain Descriptors: Aching Pain Frequency: Intermittent Non-Pharmaceutical Pain Intervention(s): Other (Comment)(medicaion, see mar/ refused Heat or ice) Response to Pain Intervention: Patient Satisfied Reason for Referral Jonatan Olivarez was referred for a bedside swallow evaluation to assess the efficiency of her swallow function, identify signs and symptoms of aspiration, and make recommendations regarding safe dietary consistencies, effective compensatory strategies, and safe eating environment. Impression Dysphagia Diagnosis Dysphagia Diagnosis: Swallow function appears grossly intact Dysphagia Outcome Severity Scale: Level 7: Normal in all situations Treatment Plan Requires VP CARE MANAGEMENT Intervention: No D/C Recommendations: Home independently Recommended Diet and Intervention Solid: Diet Solids Recommendation: Regular Liquid: Liquid Consistency Recommendation: Thin Medication:Recommended Form of Meds: PO Therapeutic Interventions: Diet tolerance monitoring Treatment/Goals Tolerated diet with no overt s/sx aspiration: MET General Chart Reviewed: Yes Behavior/Cognition Behavior/Cognition: Alert;Cooperative Communication Observation: Functional Follows Directions: Simple Patient Positioning: Upright in chair Baseline Vocal Quality: Normal Consistencies Administered: Reg solid;Dysphagia Soft and Bite-Sized (Dysphagia III);Thin - straw Vision/Hearing Vision Vision: Within Functional Limits Hearing Hearing: Within functional limits Oral Motor Deficits Oral/Motor Oral Motor: Within functional limits Oral Phase Dysfunction Oral Phase Oral Phase: WFL Indicators of Pharyngeal Phase Dysfunction Pharyngeal Phase Pharyngeal Phase: WFL Prognosis Prognosis Prognosis for safe diet advancement: excellent Individuals consulted Consulted and agree with results and recommendations: Patient Education Patient Education: Pt educated re: results, recommendations, reasoning Patient Education Response: Verbalizes understanding Therapy Time VP CARE MANAGEMENT Individual Minutes Time In: 1205 Time Out: 1217 Minutes: 12 Meal assessment completed with regular and dental soft and thin textures. No s/sx aspiration noted and pt denies any symptoms of dysphagia: no globus sensation, no coughing with liquids or solids, nofeeling of choking, no difficulty with pills, no tingling or pain with PO intake. Oral motor movement WFL. Pt is adequate for discharge from services with regular diet, thin liquids. Katelyn Tubbs M.A. CF-VP CARE MANAGEMENT [place] Ceron 04/23/2019 12:28 PM * Meredith Jenkins RD, LD - 04/23/2019 11:32 AM EST Nutrition Assessment Type and Reason for Visit: Initial Nutrition Recommendations: 1. Modify diet to include CC 4 carbs per meal. 2. F/u with diet education needs. 3. Obtain recent A1c to assess diabetes management. Nutrition Assessment: altered nutrition related labs r/t endocrine dysfunction aeb glucose 214 (DM/steroid therapy). No recent A1c. PCO2 is elevated at 51.2- avoid carbonated beverages. Pt reports sheis not a pop drinker. She does not like her meals due to lack of salt. c/o decreased PO before admission due to not being hungry for 2-3 days. Seen by VP CARE MANAGEMENT, regular with thin OK. UBW almost 200#. Wants to lose weight, glad she is down to 194#. Malnutrition Assessment: Malnutrition Status: At risk for malnutrition Context: Acute illness or injury Findings of the 6 clinical characteristics of malnutrition (Minimum of 2 out of 6 clinical characteristics is required to make the diagnosis of moderate or severe Protein Calorie Malnutrition based on AND/ASPEN Guidelines): 1. Energy Intake-Less than or equal to 50% of estimated energy requirement, (2-3 days) 2. Weight Loss-No significant weight loss, 3. Fat Loss-No significant subcutaneous fat loss, 4. Muscle Loss-No significant muscle mass loss, 5. Fluid Accumulation-No significant fluid accumulation, 6. [employer] Strength-Not measured Nutrition Risk Level: Low, Moderate Nutrition Diagnosis: Problem: Altered nutrition-related lab values Etiology: related to Endocrine dysfunction ? Signs and symptoms: as evidenced by Lab values(glucose 214 (steroid therapy/DM)) Objective Information: Nutrition-Focused Physical Findings: appears well nourished Wound Type: None Current Nutrition Therapies: Oral Diet Orders: General, 2gm Sodium Oral Diet intake: 76-100% Oral Nutrition Supplement (ONS) Orders: None Anthropometric Measures: Ht: 5' 1 (154.9 cm) Current Body Wt: 194 lb 3.2 oz (88.1 kg) Admission Body Wt: 192 lb 3.2 oz (87.2 kg) Usual Body Wt: 184 lb (83.5 kg)(180-187#) % Weight Change: , weight gain trend [place] Body Wt: 105 lb (47.6 kg), % [place] Body 185% BMI Classification: BMI 35.0 - 39.9 Obese Class II Lab Results Component Value Date LABA1C 7.0 12/17/2011 Recent Labs 04/21/19 1925 04/22/19 0555 NA 132* 137 K 3.8 4.1 CL 94* 100 CO2 25 25 BUN 13 12 CREATININE 0.47* 0.41* GLUCOSE 160* 208* ALT 10 10 ALKPHOS 95 86 GFR Lab Results Component Value Date LABALBU 3.6 04/22/2019 Lab Results Component Value Date TRIG 189 02/24/2018 HDL 34 02/24/2018 Recent Labs 04/22/19 1131 POCGLU 214* Nutrition Interventions: Modify current diet(CC 4 carbs per meal) Continued Inpatient Monitoring, Coordination of Care Nutrition Evaluation: Evaluation: Goals set Goals: PO > 75% of meals Monitoring: Meal Intake, Weight, Pertinent Labs, Patient/Family Education, I&O Contact Number: [phone] * Brit Batista RN - 04/23/2019 10:21 AM EST Outpt clinic called and left message with staff about pulmonology consult. * Ziggy Smith MD - 04/23/2019 6:48 AM EST Ziggy Smith M.D. ICU Progress Note 04/23/19 SUBJECTIVE: Pt seen and examined in the ICU for follow up of Community acquired bacterial pneumonia and unresponsive episodes yesterday. She is awake and much more alert this morning. She remembers that she kept passing out yesterday but doesn't remember much more. She states she passes out at home sometimeswhen she's wearing her oxygen. She denies any chest pain, palpitations, lightheadedness or vertigo.Her breathing and cough are improving. She denies any fever or chills. She wore BiPAP all night. She's never had a sleep study done but states she feels tired during the day all day long most days. ROS: Constitutional: negative for fevers, and negative for chills. Respiratory: positive for shortness of breath, positive for cough, and negative for wheezing Cardiovascular: negative for chest pain, and negative for palpitations Gastrointestinal: negative for abdominal pain, negative for nausea,negative for vomiting, negative for diarrhea, and negative for constipation All other systems were reviewed with the patient and are negative unless otherwise stated in HPI. OBJECTIVE: Vitals: Temp: 97.4 F (36.3 C) Temp range: Temp Av.9 F (36.1 C) Min: 96.4 F (35.8 C) Max: 97.8 F (36.6 C) BP: (!) 147/69 BP Range: Systolic (24hrs), Av , Min:93 , Max:164 Diastolic (24hrs), Av, Min:54, Max:79 Pulse: 68 Pulse Range: Pulse Av.5 Min: 60 Max: 77 Resp: 15 Resp Range: Resp Av.9 Min: 10 Max: 27 SpO2: 92 % on supplemental O2 SpO2 range: SpO2 Av.2 % Min: 86 % Max: 98 % 24HR INTAKE/OUTPUT: Intake/Output Summary (Last 24 hours) at 04/23/2019 0648 Last data filed at 04/23/2019 0500 Gross per 24 hour Intake 3253 ml Output 875 ml Net 2378 ml Exam: GEN: Awake, alert and oriented x3. EYES: EOMI, pupils equal NECK: Supple. No lymphadenopathy. No carotid bruit CVS: regular rate and rhythm, no audible murmur PULM: diminished with bilateral expiratory wheezing, no acute respiratory distress ABD: Bowels sounds normal. Abdomen is soft. No distention. no tenderness to palpation. EXT: no edema bilaterally . No calf tenderness. NEURO: Moves all extremities. Motor and sensory are grossly intact SKIN: No rashes. No skin lesions. Diagnostic Data: All lines, drips, IV sites and medications reviewed All available data reviewed Lab Results Component Value Date WBC 15.9 (H) 04/22/2019 HGB 14.3 04/22/2019 MCV 93.5 04/22/2019 PLT 208 04/22/2019 Lab Results Component Value Date SEGS 95 (H) 04/22/2019 LYMPHOPCT 5 (L) 04/22/2019 MONOPCT 0 (L) 04/22/2019 EOSRELPCT 0 (L) 04/22/2019 BASOPCT 0 04/22/2019 NEUTROABS 15.10 (H) 04/22/2019 Lab Results Component Value Date GLUCOSE 208 (H) 04/22/2019 BUN 12 04/22/2019 CREATININE 0.41 (L) 04/22/2019 NA 137 04/22/2019 K 4.1 04/22/2019 CALCIUM 8.7 04/22/2019 CL 100 04/22/2019 CO2 25 04/22/2019 Lab Results Component Value Date LACTA 1.2 04/22/2019 Results for JONATAN OLIVAREZ ( ) as of 04/23/2019 06:49 Ref. Range 04/22/2019 11:00 04/22/2019 14:45 pH, Arterial Latest Ref Range: 7.35 - 7.45 7.255 (L) 7.272 (L) pCO2, Arterial Latest Ref Range: 35 - 45 mmHg 58.5 (H) 50.9 (H) pO2, Arterial Latest Ref Range: 80.0 - 100.0 mmHg 69.5 (L) 68.5 (L) HCO3, Arterial Latest Ref Range: 22 - 26 mmol/L 25.4 23.0 Negative Base Excess, Art Latest Ref Range: 0.0 - 2.0 mmol/L 2.9 (H) 4.4 (H) O2 Sat, Arterial Latest Ref Range: 95 - 98 % 90.9 (L) 91.1 (L) PROBLEM LIST: Principal Problem: Community acquired bacterial pneumonia Active Problems: CAD S/P percutaneous coronary angioplasty Tobacco abuse COPD (chronic obstructive pulmonary disease) ([facility]) Diabetes mellitus ([facility]) Hypertension Resolved Problems: * No resolved hospital problems. * ASSESSMENT / PLAN: Community acquired bacterial pneumonia ? IV levaquin ? Nebs ? O2 Unresponsive episode yesterday ? Uncertain cause but likely CO2 narcosis ? Repeat ABG this AM after wearing BiPAP all night ? Recommend outpatient sleep study to assess for BOB following DC COPD ? IV steroids ? Nebs ? O2 ? Check ABG Acute respiratory failure with hypoxia and hypercapnea ? Monitor ABG ? Supplemental O2 Chronic pain syndrome right arm ? Pt requesting a vicodin or something for her pain Coronary artery disease ? Continue ASA, Plavix, Atorvastatin, Metoprolol Diabetes mellitus with diabetic neuropathy ? Continue Actos ? Continue Gabapentin for neuropathy Peripheral vascular disease ? Continue ASA, Plavix, Atorvastatin Nutrition status: obesity, non-morbid DVT prophylaxis: Lovenox High risk medications: none Disposition: Discharge plan is home Nutrition status: obesity, non-morbid DVT prophylaxis: Lovenox High risk medications: none Disposition: Discharge plan is home Total critical care time caring for this patient with life threatening, unstable organ failure, including direct patient contact, management of life support systems, review of data including imaging and labs, discussions with other team members and physicians at least 30 minutes so far today, excluding separately billable procedures. Ziggy Smith M.D. 04/23/2019 6:48 AM * Marita Bonilla RN - 04/22/2019 8:00 PM EST Patient awakens easily with name being called. Respirations unlabored. Assessment completed. Stateswanting ativan tonight as at home and would not go without it. Given to patient. Continue to monitor. * Layla Folwers LSW - 04/22/2019 2:37 PM EST Met with Patient this p.m. She is a 58 year old , white female, admitted with Community Acquired Bacterial Pneumonia. Patient is alert and oriented, pleasant and cooperative with this assessment. She is sitting up in bedside chair at this time, hoping to be discharged back to her home when medically stable. Patient resides in [place] and her adult son lives with her. Patient uses home O2 and a nebulizer for assistance. Patient also has a cane which she uses as she needs to. Patient does her own cooking and her son assists her with the housekeeping. Patient does not drive and uses the local [employer] [place] transportation. PCP is Vahid Calderón CNP. Patient denies needing assistance with paying for her medications and reports that she does not even have a copay with any of her current medications. Discharge plan is home when medically stable. Patient would like a referral to be made for Meals onee program. Referral placed to [facility] via telephone voicemail message for meals program. Patient is a 'Full Code' status. Would like information on executing Advanced Directives. [facility]. Patient states that she has not used home health care in the past but is open to this as the doctorthinks it necessary. Provider list left for her review. HEAD MECHANIC to monitor and assist wit discharge planning as needs arise. ELISSA Barbosa 04/22/2019 * Laurie Velasquez RN - 04/22/2019 12:09 PM EST SonJavier called and updated on ICU transfer and patient condition. * Katelyn Tubbs SLP - 04/22/2019 12:01 PM EST Speech Language Pathology Facility/Department: [facility] ICU CLINICAL BEDSIDE SWALLOW EVALUATION NAME: Jonatan Olivarez : 1960 ADMISSION DATE: 04/21/2019 Visit Diagnoses Codes Pneumonia due to organism - Primary J18.9 Past Medical History: has a past medical history of Asthma, Back problem, CAD (coronary artery disease), COPD (chronic obstructive pulmonary disease) (HCC), Depression, Diabetes mellitus (HCC), Edema, H/O cardiac catheterization, Hernia of abdominal wall, History of cardiovascular stress test, History of echocardiogram, History of stress test, Hx of blood clots, Hypertension, Hypothyroidism, Leg pain, bilateral, and Wears partial dentures. Past Surgical History: has a past surgical history that includes Cholecystectomy; Hysterectomy; femoral bypass; Cardiac surgery; Cardiac catheterization; vascular surgery; Aorta surgery (05/2016); and Cardiac catheterization (Left, 02/25/2018). Recent Chest Xray/CT of Chest: ( 04/21/2019 ) Impression New/increased bilateral ground-glass infiltrates. Differential considerations include infectious, inflammatory, and neoplastic etiologies. Prominent pulmonary artery may reflect pulmonary artery hypertension. This may account for the right hilar fullness as no distinct mass or pathologic lymphadenopathy is noted. Date of Eval: 04/22/2019 Evaluating Therapist: Katelyn Tubbs Current Diet level: Current Diet : Regular Current Liquid Diet : Thin Primary Complaint: Pt has PNA, risk factors Pain: Pt reports pain in left arm: RN notified. Reason for Referral Jonatan Olivarez was referred for a bedside swallow evaluation to assess the efficiency of her swallow function, identify signs and symptoms of aspiration, and make recommendations regarding safe dietary consistencies, effective compensatory strategies, and safe eating environment. Impression Dysphagia Diagnosis Dysphagia Diagnosis: Swallow function appears grossly intact Dysphagia Outcome Severity Scale: Level 7: Normal in all situations Treatment Plan Requires VP CARE MANAGEMENT Intervention: Yes Duration/Frequency of Treatment: x1 follow-up D/C Recommendations: Home independently Recommended Diet and Intervention Solid: Diet Solids Recommendation: Regular Liquid: Liquid Consistency Recommendation: Thin Medication:Recommended Form of Meds: PO Therapeutic Interventions: Diet tolerance monitoring Treatment/Goals Dysphagia Goals: The patient will tolerate recommended diet without observed clinical signs of aspiration General Chart Reviewed: Yes Behavior/Cognition Behavior/Cognition: Alert;Cooperative Respiratory Status: O2 via nasual cannula O2 Device: Nasal cannula Liters of Oxygen: 2 L Communication Observation: Functional Follows Directions: Simple Dentition: Dentures top(minimal bottom teeth) Patient Positioning: Upright in chair Baseline Vocal Quality: Normal Volitional Cough: Strong Volitional Swallow: (WFL) Consistencies Administered: Reg solid;Dysphagia Soft and Bite-Sized (Dysphagia III);Dysphagia Pureed (Dysphagia I);Thin - straw Vision/Hearing Vision Vision: Within Functional Limits Hearing Hearing: Within functional limits Oral Motor Deficits Oral/Motor Oral Motor: Within functional limits Oral Phase Dysfunction Oral Phase Oral Phase: WFL Indicators of Pharyngeal Phase Dysfunction Pharyngeal Phase Pharyngeal Phase: WFL Prognosis Prognosis Prognosis for safe diet advancement: excellent Individuals consulted Consulted and agree with results and recommendations: Patient Education Patient Education: Pt educated re: results, recommendations, reasoning Patient Education Response: Verbalizes understanding Therapy Time VP CARE MANAGEMENT Individual Minutes Time In: 1000 Time Out: 1025 Minutes: 25 ST recommends a one-time follow-up for meal assessment d/t pt's medical condition and risk factors associated with dysphagia. ST recommends regular, thin diet and x1 follow-up for meal assessment to confirm pt's tolerance of this diet. Katelyn Tubbs M.A. CF-VP CARE MANAGEMENT [facility] Ceron 04/22/2019 12:06 PM * Laurie Velasquez RN - 04/22/2019 11:35 AM EST Patient more lethargic and hard to arouse. Dr. Smith at bedside. New orders to be transferred to ICU and BIPAP. * Anamaria Elder RN - 04/22/2019 5:[address] De Santiago returned call and ordered Tylenol 1,000mg one time. * Anamaria Elder RN - 04/22/2019 5:33 AM EST Patient called out stating I have a headache. Ladle Operator informed patient that there was still an hour to go before being able to given PRN motrin. Patient stated that she felt miserable and requested something else. Ladle Operator asked if it was just her headache but patient stated it was her legs and armsthat hurt and she felt like she was going to get sick. Page out to Dr. De Santiago. * Blaise Darling, LEADERSHIP PROGRAM INTERN - 04/21/2019 10:36 PM EST RESPIRATORY ASSESSMENT PROTOCOL Patient Name: Jonatan Olivarez Room#: 0316/0316-01 : 1960 Admitting diagnosis: Community acquired bacterial pneumonia [J15.9] Medical History: Past Medical History: Diagnosis Date Asthma Back problem Bulging discs (2 or 3), 1 cracked & 1 blackened discs CAD (coronary artery disease) stents x 3; BMS to LAD 12/2010;SPARKLE to RCA 01/2011, NL LV COPD (chronic obstructive pulmonary disease) (HCC) COPD (chronic obstructive pulmonary disease) (HCC) Depression Diabetes mellitus (HCC) Edema chevy legs feet H/O cardiac catheterization 01/01/2011 Hernia of abdominal wall 2012 History of cardiovascular stress test 10/15/12 Abnormal myocardial perfusion study, small to mod perfusion defect of mild intensity in the anterolateral and lateral regions during stress imaging, LV function NL, no wall motion abnormalities, No significant EKG evidence of ischemia during monitoring w/o significant arrhythmias. History of echocardiogram 02/24/2018 EF 60%. Mildly increased LV wall thickness. Evidence of mild diastolic dysfunction seen. History of stress test 04/23/2017 Largerly normal myocardial perfusion imaging with soft tissue artifact, but without signficant evidence of myocardial ischemia or infarction. EF 73%. Hx of blood clots abdomen Hypertension Leg pain, bilateral rate 10 Thyroid disease Wears partial dentures upper PATIENT ASSESSMENT LABORATORY DATA Hematology: Lab Results Component Value Date WBC 18.4 04/21/2019 RBC 4.90 04/21/2019 RBC 4.28 05/21/2011 HGB 14.5 04/21/2019 HCT 45.6 04/21/2019 PLT 216 04/21/2019 PLT 205 05/21/2011 Chemistry: Lab Results Component Value Date PHART 7.262 06/05/2018 [id number] 57.5 06/05/2018 PO2ART 60.2 06/05/2018 [id number] 86.9 06/05/2018 [id number] 25.3 06/05/2018 PBEA NOT REPORTED 06/05/2018 Blood Culture: Sputum Culture: VITALS Pulse: 85 Resp: 18 BP: (!) 153/84 SpO2: 90 % O2 Device: Nasal cannula Temp: 97.8 F (36.6 C) Comment: SKIN COLOR [x] Normal [] Pale [] Dusky [] Cyanotic RESPIRATORY PATTERN [x] Normal [] Dyspnea [] Devin-Gallardo [] Kussmaul [] Biots AMBULATORY [] Yes [] No [x] With Assistance PEAK FLOW Predicted: Personal Best: VITAL CAPACITY Predicted value: ml Actual Value: ml 30% of Predicted: ml Patient Acuity 0 1 2 3 4 Score Level of Concious (LOC) [x] Alert & Oriented or Pt normal LOC [] Confused;follows directions [] Confused & uncooper-ative [] Obtunded [] Comatose 0 Respiratory Rate (RR) [] Reg. rate & pattern. 12 - 20 bpm [] Increased RR. Greater than 20 bpm [x] SOB w/ exertion or RR greater than 24 bpm [] Access- ory muscle use at rest. Abn. resp. [] SOB at rest. 2 Bilateral Breath Sounds (BBS) [] Clear [] Diminish-ed bases [x] Diminish-ed t/o, or rales [] Sporadic, scattered wheezes or rhonchi [] Persistentwheezes and, or absent BBS 2 Cough [x] Strong, effective, & non-prod. [] Effective & prod. Less than 25 ml (2 TBSP) over past 24 hrs [] Ineffective & non-prod to less than 25 ML over past 24 hrs [] Ineffective and, or greater than 25 ml sputum prod. past 24 hrs. [] Nonspon- taneous; Requires suctioning 0 Pulmonary History (PULM HX) [] No smoking and no chronic pulmonaryhistory [] Former smoker. Quit over 12 mos. ago [] Current smoker or quit w/ in 12 mos [] Pulm. History and, or 20 pk/yr smoking hx [x] Admitted w/ acute pulm. dx and, or has been admitted w/ pulm. dx 2 or more times over past 12 mos 4 Surgical History this Admit (SURG HX) [x] No surgery [] General surgery [] Lower abdominal [] Thoracic or upper abdominal [] Thoracic w/ pulm. disease 0 Chest X-Ray (CXR)/CT Scan [] Clear or not applicable [] Not available [] Atelect- asis or pleural effusions [] Localized infiltrate or pulm. edema [x] Con-solidated Infiltrates, bilateral, or in more than 1 lobe 4 Slow or Forced VC, FEV1 OR PEFR (PULM FXN) [x] 80% or greater, or not indicated [] Pt. unable to perform [] FEV1 or PEFR or VC 51-79%. [] FEV1 or PEFR or VC 30-49% [] FEV1 or PEFR or VC less than 30% 0 TOTAL ACUITY: 12 CARE PLAN If Acuity Level is 2, 3, or 4 in any of the following: [] BILATERAL BREATH SOUNDS (BBS) [x] PULMONARY HISTORY (PULM HX) [] PULMONARY FUNCTION (PULM FX) Goal: Improve respiratory functions in patients with airway disease and decrease WOB [x] AEROSOL PROTOCOL Total Acuity: 16-32 [] Secondary Assessment in 24 hrs Total Acuity: 9-15 [x] Secondary Assessment in 24 hrs Total Acuity: 4-8 [] Secondary Assessment in 48 hrs Total Acuity: 0-3 [] Secondary Assessment in 72 hrs HHN AEROSOL THERAPY with [physician-ordered bronchodilator(s)] q 4 & Albuterol PRN q2 hrs. Breath-Actuated Neb if BBS Acuity = 4, and pt. can use MP. Notify physician if condition deteriorates. HHN AEROSOL THERAPY with [physician-ordered bronchodilator(s)] QID and Albuterol PRN q4 hrs. Breath-Actuated Neb if BBS Acuity = 4, and pt. can use MP. Notify physician if condition deteriorates. MDI THERAPY with 2 actuations of [physician-ordered bronchodilator(s)] via spacer TID Albuterol and PRNq4 hrs. If unable to utilize MDI: HHN [physician-ordered bronchodilator(s)] TID and Albuterol PRN q4 hrs. Notify physician if condition deteriorates. MDI THERAPY with [physician-ordered bronchodilator(s)] via spacer TID PRN. If unable to utilize MDI: HHN [physician-ordered bronchodilator(s)] TID PRN. Notify physician if condition deteriorates. If Acuity Level is 2, 3, or 4 in any of the following: [] COUGH [] SURGICAL HISTORY (SURG HX) [x] CHEST XRAY (CXR) Goal: Improvement in sputum mobilization in patients with ineffective airway clearance. Reverse atelectasis. [x] Bronchopulmonary Hygiene Protocol Total Acuity: 16-32 [] Secondary Assessment in 24 hrs Total Acuity: 9-15 [x] Secondary Assessment in 24 hrs Total Acuity: 4-8 [] Secondary Assessment in 48 hrs Total Acuity: 0-3 [] Secondary Assessment in 72 hrs METANEB QID with [physician-ordered bronchodilator(s)] if CXR Acuity = 4; otherwise: PD&P, PEP, or Vest QID & PRN NT Sxn PRN for ineffective cough METANEB QID with [physician-ordered bronchodilator(s)] if CXR Acuity = 4; otherwise: PD&P, PEP, or Vest TID & PRN NT Sxn PRN for ineffective cough Instruct patient to self-perform IS q1hr WA Directed Cough self-performed q1hr WA If Acuity Level is 2 or above in the following: [] PULMONARY HISTORY (PULM HX) Goal: Assist patient in quitting smoking to slow or stop the progression of lung disease. [] Smoking Cessation Protocol SMOKING CESSATION EDUCATION provided according to policy RT_201: (gordo with an X) ____Yes ____ No ____ NA Smoking Cessation Booklet given: ____Yes ____No ____Patient Refused * Anamaria Elder RN - 04/21/2019 10:30 PM EST Urine obtained and sent to lab. * Anamaria Elder RN - 04/21/2019 10:00 PM EST Patient arrived to floor to room 316 per cart from ED. Patient ambulated from cart to bed and tolerated well. Patient is very drowsy but easily aroused. Assessment and vitals completed as documented.Patient denies any SOB/ chest pain. Patient is on 4L via NC, patient usually wears 2L at home. Patient does complain of numbness/tingling in arms and legs that have been going on for 2 years now. Patient also complains of pain to Left arm and both legs due to recent fall. Patient denies any needs at this time. Will continue to monitor. [email or web address] Work Phone: [phone]) 125-514201-26-2020 Hospital course Narrative* Ziggy Smith MD - 04/26/2019 12:08 PM EST Ziggy Smith M.D. Internal Medicine Discharge Summary Patient ID: Jonatan Olivarez [id number] Admission date: 04/21/2019 Discharge date: 04/26/2019 Admitting Physician: Gordo De Santiago MD Primary Care Physician: Vahid Nagy, INSPECTOR [employer] - TRUST ADMINISTRATOR Primary Discharge Diagnoses: Community acquired bacterial pneumonia Acute exacerbation of COPD Acute respiratory failure with hypoxia and hypercapnea Coronary artery disease Diabetes mellitus with diabetic neuropathy Peripheral vascular disease Chronic tobacco abuse Additional Diagnoses: Diagnosis Date Asthma Back problem Bulging discs (2 or 3), 1 cracked & 1 blackened discs CAD (coronary artery disease) stents x 3; BMS to LAD 12/2010;SPARKLE to RCA 01/2011, NL LV COPD (chronic obstructive pulmonary disease) (HCC) Depression Diabetes mellitus ([facility]) Edema chevy legs feet H/O cardiac catheterization 01/01/2011 Hernia of abdominal wall 2012 History of cardiovascular stress test 10/15/12 Abnormal myocardial perfusion study, small to mod perfusion defect of mild intensity in the anterolateral and lateral regions during stress imaging, LV function NL, no wall motion abnormalities, No significant EKG evidence of ischemia during monitoring w/o significant arrhythmias. History of echocardiogram 02/24/2018 EF 60%. Mildly increased LV wall thickness. Evidence of mild diastolic dysfunction seen. History of stress test 04/23/2017 Largerly normal myocardial perfusion imaging with soft tissue artifact, but without signficant evidence of myocardial ischemia or infarction. EF 73%. Hx of blood clots abdomen Hypertension Hypothyroidism Leg pain, bilateral rate 10 Wears partial dentures upper Hospital Course: The patient was admitted for CAP and acute exacerbation of COPD. She was treated with IV levaquin, solumedrol and nebulizer tx's and improved over the course of her hospitalization. She was hypoxic and continued on supplemental O2, which she uses at home as well. She had an unresponsive episode theday following admission which was thought to be due to CO2 narcosis, as she improved dramatically with use of BiPAP. She was seen by pulmonology in consultation who recommended outpatient pulmonary rehab, annual low dose lung CT for cancer screening, outpatient PFT's and sleep study. She received her Pneumovax 23 prior to DC. Discharge Exam: GEN: Awake, alert and oriented x3. EYES: EOMI, pupils equal NECK: Supple. No lymphadenopathy. No carotid bruit CVS: regular rate and rhythm, no audible murmur PULM: diminished but clear without wheezing, rales or rhonchi, no acute respiratory distress ABD: Bowels sounds normal. Abdomen is soft. No distention. no tenderness to palpation. EXT: no edema bilaterally . No calf tenderness. NEURO: Moves all extremities. Motor and sensory are grossly intact SKIN: No rashes. No skin lesions. Consultants: Dr. Boyd, pulmonology Procedures: none Complications: none Significant Diagnostic Studies: Discharge Labs: Lab Results Component Value Date WBC 9.3 04/26/2019 HGB 14.7 04/26/2019 MCV 91.3 04/26/2019 PLT 238 04/26/2019 Lab Results Component Value Date GLUCOSE 111 (H) 04/26/2019 BUN 14 04/26/2019 CREATININE 0.48 (L) 04/26/2019 NA 140 04/26/2019 K 4.1 04/26/2019 CALCIUM 9.1 04/26/2019 CL 100 04/26/2019 CO2 32 (H) 04/26/2019 Discharge Condition: stable Disposition: Discharge to Home Discharge Medications: Jonatan Olivarez Home Medication Instructions LISBETH:[id number] Printed on:04/26/19 1204 Medication Information albuterol (PROVENTIL) (2.5 MG/3ML) 0.083% nebulizer solution Take 3 mLs by nebulization every 6 hours as needed for Wheezing aspirin EC 81 MG EC tablet Take 1 tablet by mouth daily atorvastatin (LIPITOR) 40 MG tablet Take 1 tablet by mouth daily beclomethasone (QVAR) 80 MCG/ACT inhaler Inhale 1 puff into the lungs 2 times daily Blood Pressure Monitoring MISC To monitor blood pressure as needed. Please order device that is covered by insurance. clopidogrel (PLAVIX) 75 MG tablet TAKE ONE TABLET BY MOUTH DAILY gabapentin (NEURONTIN) 800 MG tablet Take 800 mg by mouth 3 times daily.. ibuprofen (ADVIL;MOTRIN) 800 MG tablet Take 1 tablet by mouth every 8 hours as needed for Pain Incontinence Supply Disposable [facility] Incontinence pads 150 per month. Please order pad that is covered by insurance plan levofloxacin (LEVAQUIN) 500 MG tablet Take 1 tablet by mouth daily for 5 days levothyroxine (SYNTHROID) 150 MCG tablet Take 150 mcg by mouth daily LORazepam (ATIVAN) 0.5 MG tablet Take 0.5 mg by mouth every 6 hours as needed for Anxiety.. meclizine (ANTIVERT) 12.5 MG tablet Take 12.5 mg by mouth 3 times daily as needed metoprolol succinate (TOPROL XL) 100 MG extended release tablet Take 100 mg by mouth daily nitroGLYCERIN (NITROSTAT) 0.[address] 0.4 mg under the tongue as needed pioglitazone (ACTOS) 15 MG tablet Take 15 mg by mouth daily sertraline (ZOLOFT) 50 MG tablet Take 50 mg by mouth daily tiZANidine (ZANAFLEX) 4 MG tablet Take 4 mg by mouth every 6 hours as needed TRUETRACK TEST strip use as directed TO TEST BLOOD SUGAR three times a day Patient Instructions: Activity: activity as tolerated Diet: diabetic diet Wound Care: none needed Follow up with HILDA Land CNP in 1-2 weeks Follow-up with Dr. Boyd in outpatient pulmonology clinic - call for appt CORE MEASURES on Discharge (if applicable) FAUSTO/ARB in CHF: N/A ASA in ME: N/A Statin in ME: N/A Statin in CVA: N/A Antiplatelet in CVA: N/A Total time spent on discharge services: 35 minutes Including the following activities: Evaluation and Management of patient Discussion with patient and/or surrogate about current care plan Coordination with Case Management and/or Car Seat Maker Coordination of care with Consultants (if applicable) Coordination of care with Receiving Facility Physician (if applicable) Completion of DME forms (if applicable) Preparation of Discharge Summary Preparation of Medication Reconciliation Preparation of Discharge Prescriptions Signed: Ziggy Smith M.D. 04/26/2019 12:08 PM documented in this [facility] Phone: [phone] 372-234701-12-2020 Hospital Discharge instructions* Instructions* Harish Sebastian DO - 04/12/2019 Return to the Emergency Department immediately if you develop worsening pain, dizziness, headache, vomiting, palpitations, chest pain, shortness of breath, or you have any other concerns. Please follow up with your primary care and orthopaedic doctor in 2-3 days. Also follow up with a neurologist for further workup of your dizziness * Attachments The following attachments cannot be sent through Care Everywhere. * Dizziness (Uruguayan) * Shoulder Pain ([place]ruguayan) documented [email or web address] Phone: [email or web address] note* Diagnosis Pelvic pain- Primary documented in this encounter [employer] Phone: [email or web address] note* Diagnosis Near syncope- Primary Syncope and collapse Multiple contusions Contusion of multiple sites, not elsewhere classified Abrasion of right knee, initial encounter documented in this encounter [employer] Phone: evaluation note* Diagnosis Intractable vomiting with nausea, unspecified vomiting type- Primary documented in this encounter [employer] Phone: evaluation note Assessments not supported for this document type No Assessments [facility] Work Phone: Evaluation note* Diagnosis Closed head injury, initial encounter- Primary Fall, initial encounter Contusion of right knee, initial encounter documented in this encounter [employer] Phone: [email or web address] note* Diagnosis Acute on chronic diastolic heart failure (HCC)- Primary Acute on chronic diastolic heart failure Cellulitis of left lower extremity Cellulitis and abscess of leg, except foot Acute on chronic respiratory failure with hypoxia (HCC) Pneumonia due to infectious organism, unspecified laterality, unspecified part of lung Pleural effusion, bilateral Unspecified pleural effusion CAD S/P percutaneous coronary angioplasty Coronary atherosclerosis of qawalangin coronary artery Tobacco abuse disorder Tobacco use disorder Acute on chronic respiratory failure with hypoxemia (HCC) COPD (chronic obstructive pulmonary disease) (HCC) Chronic airway obstruction, not elsewhere classified documented in this encounter [employer] Phone: evaluation note* Diagnosis Chronic right hip pain Pain in joint, pelvic region and thigh Fall, initial encounter Right hip pain Pain in joint, pelvic region and thigh documented in this encounter [employer] Phone: Evaluation note* Diagnosis Urinary incontinence, unspecified type documented in this encounter [employer] Phone: [email or web address] note* Diagnosis Right sided abdominal pain Abdominal pain, unspecified site documented in this encounter [employer] Phone: evalggwubt note* Diagnosis Acute pain of left shoulder- Primary Dizziness Dizziness and giddiness documented in this encounter [employer] Phone: [email or web address] note* Diagnosis Community acquired bacterial pneumonia- Primary Bacterial pneumonia, unspecified Pneumonia due to organism Pneumonia due to other specified organism COPD, severity to be determined (HCC) Chronic airway obstruction, not elsewhere classified COPD with exacerbation (HCC) Obstructive chronic bronchitis with exacerbation Diabetes mellitus (HCC) Type II or unspecified type diabetes mellitus without mention of complication, not stated as uncontrolled Hypertension Unspecified essential hypertension CAD S/P percutaneous coronary angioplasty Coronary atherosclerosis of qawalangin coronary artery Tobacco abuse Tobacco use disorder Acute on chronic respiratory failure with hypoxemia (HCC) Smoking greater than 40 pack years Tobacco use disorder documented in this encounter [employer] Phone: [email or web address] note Includes: Assessments for all patient encounters Findings Encounter Date Assess tobacco abuse Established Patient with Vahid Nagy CNP 06/27/2018 Assessment of chronic lower back pain Es tablished Patient with Vahid Nagy CNP 06/27/2018 Obesity due to excess calories Establish ed Patient with Vahid Nagy [facility] 06/27/2018 Obesity due to excess calories Establish ed Patient with Vahid Nagy CNP 05/30/2018 [facility] Work Phone: Evaluation note* Diagnosis Chronic right hip pain Pain in joint, pelvic region and thigh documented in this encounter [employer] Phone: [email or web address] note* Diagnosis Recurrent abdominal hernia without obstruction or gangrene, unspecified hernia type Right lower quadrant abdominal mass Abdominal or pelvic swelling, mass, or lump, right lower quadrant documented in this encounter [employer] Phone: [email or web address] note* Diagnosis Ventral hernia without obstruction or gangrene- Primary Ventral hernia, unspecified, without mention of obstruction or gangrene Tobacco use Tobacco use disorder [facility] Diagnosis Contusion of coccyx, initial encounter- Primary Fall, initial encounter documented in this encounter [employer] Phone: evaluation note* Diagnosis Primary hypertension Unspecified essential hypertension Lipid screening Screening for lipoid disorders Hypothyroidism, unspecified type Hyperglycemia Other abnormal glucose Chronic obstructive pulmonary disease, unspecified COPD type (HCC) Chronic right hip pain Pain in joint, pelvic region and thigh Sacral pain Disorders of sacrum Lumbar back pain with radiculopathy affecting right lower extremity Chronic left hip pain Pain in joint, pelvic region and thigh Chronic pain syndrome documented in this encounter [employer] Phone: evaluation note* Diagnosis Coccyx pain- Primary Other disorder of coccyx documented in this encounter [employer] Phone: [email or web address] note* Diagnosis Chronic obstructive pulmonary disease, unspecified COPD type (HCC) Chronic right hip pain Pain in joint, pelvic region and thigh Sacral pain Disorders of sacrum Lumbar back pain with radiculopathy affecting right lower extremity Chronic left hip pain Pain in joint, pelvic region and thigh documented in this encounter [employer] Phone: evaluation note* Diagnosis Onset Date Resolution Status Chest pain acuteHeart failureacuteHypotensionacuteHypoxiaacuteNonspecific ST-T wave electrocardiographic changesacutePulmonary [facility] Work Phone: Evaluation note* Diagnosis Onset Date Resolution Status Anemia acuteCAD (coronary artery disease)acuteChest painacuteH/O heart artery stent acuteHypotensionacuteHypoxiaacuteNonspecific ST-T wave electrocardiographic changesacutePulmonary emboliate [facility] Work Phone: Evaluation note* Diagnosis Gastrointestinal hemorrhage, unspecified gastrointestinal hemorrhage type- Primary Chronic gastrointestinal hemorrhage Unspecified, hemorrhage of gastrointestinal tract Gastric ulcer without hemorrhage or perforation, unspecified chronicity [facility]* Diagnosis Hypothyroidism- Primary Unspecified hypothyroidism Claudication in peripheral vascular disease Peripheral vascular disease, unspecified ASHD (arteriosclerotic heart disease) Coronary atherosclerosis of unspecified type of vessel, qawalangin or graft Atherosclerosis of both carotid arteries Occlusion and stenosis of carotid artery without mention of cerebral infarction Intolerance of drug Other drug allergy Dizziness Dizziness and giddiness Atherosclerosis of artery of extremity with intermittent claudication Tobacco abuse Tobacco use disorder Tobacco abuse counseling Counseling on substance use and abuse CAD S/P percutaneous coronary angioplasty Coronary atherosclerosis of qawalangin coronary artery COPD with acute exacerbation (HCC)- Primary Obstructive chronic bronchitis with exacerbation Chronic right hip pain Pain in joint, pelvic region and thigh Lumbar back pain with radiculopathy affecting right lower extremity Chronic left hip pain Pain in joint, pelvic region and thigh Chronic pain syndrome Sacral pain Disorders of sacrum Diabetic ulcer of left heel associated with type 2 diabetes mellitus, with fat layer exposed (HCC)- Primary Cellulitis, unspecified cellulitis site Mouth sore Other and unspecified diseases of the oral soft tissues Diabetic ulcer of left heel associated with type 2 diabetes mellitus, with fat layer exposed (HCC)- Primary Cellulitis, unspecified cellulitis site Acute insomnia Chronic right hip pain Pain in joint, pelvic region and thigh Lumbar back pain with radiculopathy affecting right lower extremity Chronic left hip pain Pain in joint, pelvic region and thigh Chronic pain syndrome Sacral pain Disorders of sacrum Cellulitis of lower extremity, unspecified laterality- Primary Claudication in peripheral vascular disease Peripheral vascular disease, unspecified PAD (peripheral artery disease) Unspecified disorders of arteries and arterioles Ulcer of both feet with fat layer exposed (HCC) Oxygen dependent - 2L per baseline Dependence on supplemental oxygen Cellulitis of lower extremity, unspecified laterality Fall, subsequent encounter Weight loss Loss of weight Tobacco abuse disorder Tobacco use disorder Primary hypertension Unspecified essential hypertension Diabetic polyneuropathy associated with type 2 diabetes mellitus (HCC) COPD (chronic obstructive pulmonary disease) (HCC) Chronic airway obstruction, not elsewhere classified Chronic right hip pain Pain in joint, pelvic region and thigh CAD (coronary artery disease) Coronary atherosclerosis of unspecified type of vessel, qawalangin or graft Oxygen dependent - 2L per baseline Dependence on supplemental oxygen Severe malnutrition Nutritional marasmus [facility]* Diagnosis Hypothyroidism- Primary Unspecified hypothyroidism Claudication in peripheral vascular disease Peripheral vascular disease, unspecified ASHD (arteriosclerotic heart disease) Coronary atherosclerosis of unspecified type of vessel, qawalangin or graft Atherosclerosis of both carotid arteries Occlusion and stenosis of carotid artery without mention of cerebral infarction Intolerance of drug Other drug allergy Dizziness Dizziness and giddiness Atherosclerosis of artery of extremity with intermittent claudication Tobacco abuse Tobacco use disorder Tobacco abuse counseling Counseling on substance use and abuse CAD S/P percutaneous coronary angioplasty Coronary atherosclerosis of qawalangin coronary artery COPD with acute exacerbation (HCC)- Primary Obstructive chronic bronchitis with exacerbation Chronic right hip pain Pain in joint, pelvic region and thigh Lumbar back pain with radiculopathy affecting right lower extremity Chronic left hip pain Pain in joint, pelvic region and thigh Chronic pain syndrome Sacral pain Disorders of sacrum Diabetic ulcer of left heel associated with type 2 diabetes mellitus, with fat layer exposed (HCC)- Primary Cellulitis, unspecified cellulitis site Mouth sore Other and unspecified diseases of the oral soft tissues Diabetic ulcer of left heel associated with type 2 diabetes mellitus, with fat layer exposed (HCC)- Primary Cellulitis, unspecified cellulitis site Acute insomnia Chronic right hip pain Pain in joint, pelvic region and thigh Lumbar back pain with radiculopathy affecting right lower extremity Chronic left hip pain Pain in joint, pelvic region and thigh Chronic pain syndrome Sacral pain Disorders of sacrum Unable to care for self- Primary Open wound of foot excluding toes Open wound of toe, initial encounter PVD (peripheral vascular disease) with claudication Peripheral vascular disease, unspecified Unable to care for self Chronic right hip pain Pain in joint, pelvic region and thigh Lumbar back pain with radiculopathy affecting right lower extremity Chronic left hip pain Pain in joint, pelvic region and thigh Chronic pain syndrome Oxygen dependent - 2L per baseline Dependence on supplemental oxygen Diabetic ulcer of toe of left foot associated with type 2 diabetes mellitus, with fat layer exposed(HCC) Diabetic ulcer of left heel associated with type 2 diabetes mellitus, with fat layer exposed (HCC) Claudication in peripheral vascular disease Peripheral vascular disease, unspecified Chronic pain syndrome documented in this encounter [facility] note* Diagnosis Hypothyroidism- Primary Unspecified hypothyroidism Claudication in peripheral vascular disease Peripheral vascular disease, unspecified ASHD (arteriosclerotic heart disease) Coronary atherosclerosis of unspecified type of vessel, qawalangin or graft Atherosclerosis of both carotid arteries Occlusion and stenosis of carotid artery without mention of cerebral infarction Intolerance of drug Other drug allergy Dizziness Dizziness and giddiness Atherosclerosis of artery of extremity with intermittent claudication Tobacco abuse Tobacco use disorder Tobacco abuse counseling Counseling on substance use and abuse CAD S/P percutaneous coronary angioplasty Coronary atherosclerosis of qawalangin coronary artery COPD with acute exacerbation (HCC)- Primary Obstructive chronic bronchitis with exacerbation Chronic right hip pain Pain in joint, pelvic region and thigh Lumbar back pain with radiculopathy affecting right lower extremity Chronic left hip pain Pain in joint, pelvic region and thigh Chronic pain syndrome Sacral pain Disorders of sacrum Diabetic ulcer of left heel associated with type 2 diabetes mellitus, with fat layer exposed (HCC)- Primary Cellulitis, unspecified cellulitis site Mouth sore Other and unspecified diseases of the oral soft tissues Diabetic ulcer of left heel associated with type 2 diabetes mellitus, with fat layer exposed (HCC)- Primary Cellulitis, unspecified cellulitis site Acute insomnia Chronic right hip pain Pain in joint, pelvic region and thigh Lumbar back pain with radiculopathy affecting right lower extremity Chronic left hip pain Pain in joint, pelvic region and thigh Chronic pain syndrome Sacral pain Disorders of sacrum Chronic foot pain, left- Primary Acute cellulitis Chronic right hip pain- Primary Pain in joint, pelvic region and thigh Chronic right hip pain Pain in joint, pelvic region and thigh Open wound of foot excluding toes Lumbar back pain with radiculopathy affecting right lower extremity Chronic left hip pain Pain in joint, pelvic region and thigh Chronic pain syndrome Sacral pain Disorders of sacrum documented in this encounter [facility] HealthEvaluation note* Diagnosis Pain- Primary Generalized pain documented in this encounter [facility] HealthcareEvaluation note* Diagnosis Acute cystitis without hematuria- Primary Acute cystitis without hematuria Hypoxia Hypoxemia Hypothyroidism Unspecified hypothyroidism Controlled type 2 diabetes mellitus with diabetic peripheral angiopathy and gangrene, without long-term current use of insulin ([facility]) A-fib ([facility]) Atrial fibrillation Type 2 diabetes mellitus with diabetic foot infection ([facility]) COPD with acute exacerbation ([facility]) Tobacco abuse Tobacco use disorder Hyperlipidemia Other and unspecified hyperlipidemia Primary hypertension Unspecified essential hypertension Osteomyelitis of left foot ([facility]) Unspecified osteomyelitis, ankle and foot [facility] of [facility] N[facility] History of Present Illness not supported for this document type No History of Present Illness [facility] Work Phone: Hospital Discharge instructions* Attachments The following attachments cannot be sent through Care Everywhere. * Pelvic Pain ([place]) [email or web address]: [facility] Discharge [facility]* Attachments The following attachments cannot be sent through Care Everywhere. * Knee Pain or Injury ([place]) * Lightheadedness or Faintness ([place]) [email or web address] Phone: Hospital Discharge instructions* Attachments The following attachments cannot be sent through Care Everywhere. * Pneumonia ([place]) [facility]* Attachments The following attachments cannot be sent through Care Everywhere. * Pain: Coccyx ([place]) [facility] Work Phone: Hospital Discharge instructionsNot on filedocumented in this encounterProMedica Health SystemInstructions Instructions not supported for this document type No Instructions [facility]ed[facility] Work Phone: InstructionsNot on filedocumented in this encounter [facility]InstructionsNot on filedocumented in this encounter [facility] SystemInstructionsNot on filedocumented in this encounter [facility] SystemInstructionsNot on filedocumented in this encounter [facility] SystemInstructionsNot on filedocumented in this encounter [facility] SystemInstructionsNot on filedocumented in this encounter [facility] SystemInstructionsNot on filedocumented in this encounter [facility] SystemPatient problem outcome Narrative Includes: Evaluations & Outcomes for active Goals No Outcomes [facility] Work Phone: reason for referral (narrative)No Reason for Referral [facility] Work Phone: reason for visit Narrative* Auth/CertSpecialty Diagnoses / ProceduresReferred By ContactReferred To Contact Diagnoses Cellulitis Osmar Rodriguez MD [address] [place] [address] Phone: tel: fax: [facility] [address] [place] [address] Referral IDStatusReasonStart DateExpiration DateVisits RequestedVisits [id number] [facility] CenterReview [facility] systems Narrative - Reported Review of Systems not supported for this document type No Review of Systems [facility] Work Phone: History of Past Illness Name Date of Onset Comments Hypothyroidism DizzinessCAD (coronary artery disease)ASHD (arteriosclerotic heart disease) Ventral herniaDiabetes mellitus type 2 in obese04/14/2016HTN (hypertension)Type 2 diabetes inerlkcl27/30/2018Lumbar spinal stenosisNov 12 2014 9:53AMDiabetes mellitus type 2 in obeseNov 2014 9:53AMTobacco dependenceNov 12 2014 9:53AM Dysthymic disorderNov 12 2014 10:53AMGeneralized anxiety disorderNov 12 2014 10:53AMTobacco use disorder, moderate, dependenceNov 2014 10:53AMInfluenza vaccine administeredNov 2014 9:53AMLumbar spinal stenosisDec 11 2014 10:39AM FatigueDec 2014 10:39AMDiabetes mellitus type 2 in obeseJan 2015 9:18AM Lumbar spinal stenosisJan 2015 9:18AMAnxiety and depressionJan 2015 9:18AM Obesity (BMI 30-39.9)Apr 14 2015 9:18AMTobacco dependenceJan 14 2015 9:18AM Dysthymic disorderAug 8 2015 3:15PMGeneralized anxiety disorderAug 8 2015 3:15PM Type 2 diabetes mellitusSep 2016 10:43AMHypertensionSep 2016 10:43AMType 2 diabetes mellitus with foot ulcerSep 2016 10:43AMNon-pressure chronic ulcer of other part of unspecified foot limited to breakdown of skinSep 2016 10:43AMAdult BMI 34.0-34.9 kg/sq mSep 2016 10:43AMPVD (peripheral vascular disease)Sep 2016 10:43AMURI (upper respiratory infection)Sep 2016 10:43AM MDD (major depressive disorder)Sep 2016 10:43AMLumbar foraminal stenosisSep 2016 10:43AMTobacco dependenceSep 2016 10:43AMMajor depressive disorder, recurrent episode, moderateSep 2016 11:37AMType 2 diabetes mellitusOct 2016 10:42AMSmokingOct 2016 10:42AMLeft shoulder painOct 2016 10:42AM Pressure ulcer of other site, stage 3Oct 2016 10:42AMBMI 40.0-44.9, adultOct 2016 10:42AMInfluenza vaccine administeredOct 2016 10:42AMType 2 diabetes mellitusNov 2016 1:44PMSmokingNov 2016 1:44PMGAD (generalized anxiety disorder)Feb 15 2017 1:44PMAdult BMI 39.0-39.9 kg/sq mNov 2016 1:44PMLumbago Feb 15 2017 1:44PMType 2 diabetes mellitusApr 2017 12:05PMEncounter for routine laboratory testingApr 2017 12:05PMBMI 35.0-35.9,adultApr 2017 12:05PMPain in leg, unspecifiedApr 2017 12:05PMOther chronic painApr 2017 12:05PMHyperlipemiaApr 2017 12:05PMBack painMay 2017 10:02AMBMI 35.0-35.9,adultMay 2017 10:02AMInsomniaMay 2017 10:02AMBone lossMay 2017 10:02AMEncounter for routine laboratory testingMay 2017 10:02AMCoughMay 11 2017 10:25AMLumbar painMay 2017 10:25AMHypertensionMay 2017 10:02AM Radiculopathy, lumbar regionMay 2017 10:04AMOther chronic painMay 2017 10:04AMBMI 35.0-35.9,adultMay 2017 10:04AMHypertensionMay 18 2017 10:04AM Major depressive disorder, recurrent episode, moderateJun 2017 10:35AM Dorsalgia, unspecifiedJun 2017 10:03AMOther chronic painJun 2017 10:03AM AnxietyJun 2017 10:03AMBitten or stung by nonvenomous insect and other nonvenomous arthropods, initial encounterJun 2017 10:03AMBMI 35.0-35.9,adult Jose 2017 10:03AMLeft shoulder painJun 2017 10:03AM Name Date of Onset Comments Hypothyroidism DizzinessCAD (coronary artery disease)ASHD (arteriosclerotic heart disease) Ventral herniaDiabetes mellitus type 2 in obese04/14/2015HTN (hypertension)Type 2 diabetes esjnatpu56/30/2018Lumbar spinal stenosisNov 2014 9:53AMDiabetes mellitus type 2 in obeseNov 2014 9:53AMTobacco dependenceNov 2014 9:53AM Dysthymic disorderNov 2014 10:53AMGeneralized anxiety disorderNov 2014 10:53AMTobacco use disorder, moderate, dependenceNov 2014 10:53AMInfluenza vaccine administeredNov 2014 9:53AMLumbar spinal stenosisDec 2014 10:39AM FatigueDec 2014 10:39AMDiabetes mellitus type 2 in obeseApr 14 2015 9:18AM Lumbar spinal stenosisJan 2015 9:18AMAnxiety and depressionJan 2015 9:18AM Obesity (BMI 30-39.9)Apr 14 2015 9:18AMTobacco dependenceJan 2015 9:18AM Dysthymic disorderAug 8 2015 3:15PMGeneralized anxiety disorderAug 8 2015 3:15PM Type 2 diabetes mellitusSep 2016 10:43AMHypertensionSep 2016 10:43AMType 2 diabetes mellitus with foot ulcerSep 2016 10:43AMNon-pressure chronic ulcer of other part of unspecified foot limited to breakdown of skinSep 2016 10:43AMAdult BMI 34.0-34.9 kg/sq mSep 2016 10:43AMPVD (peripheral vascular disease)Sep 2016 10:43AMURI (upper respiratory infection)Sep 2016 10:43AM MDD (major depressive disorder)Sep 2016 10:43AMLumbar foraminal stenosisSep 2016 10:43AMTobacco dependenceSep 2016 10:43AMMajor depressive disorder, recurrent episode, moderateSep 2016 11:37AMType 2 diabetes mellitusOct 2016 10:42AMSmokingOct 2016 10:42AMLeft shoulder painOct 2016 10:42AM Pressure ulcer of other site, stage 3Oct 2016 10:42AMBMI 40.0-44.9, adultOct 2016 10:42AMInfluenza vaccine administeredOct 2016 10:42AMType 2 diabetes mellitusNov 2017 1:44PMSmokingNov 2016 1:44PMGAD (generalized anxiety disorder)Nov 2016 1:44PMAdult BMI 39.0-39.9 kg/sq mNov 2016 1:44PMLumbago Nov 2016 1:44PMType 2 diabetes mellitusApr 2017 12:05PMEncounter for routine laboratory testingApr 2017 12:05PMBMI 35.0-35.9,adultApr 2017 12:05PMPain in leg, unspecifiedApr 2017 12:05PMOther chronic painApr 2017 12:05PMHyperlipemiaApr 2017 12:05PMBack painMay 2017 10:02AMBMI 35.0-35.9,adultMay 2017 10:02AMInsomniaMay 2017 10:02AMBone lossMay 2017 10:02AMEncounter for routine laboratory testingMay 2017 10:02AMCoughMay 2017 10:25AMLumbar painMay 11 2017 10:25AMHypertensionMay 2017 10:02AM Radiculopathy, lumbar regionMay 2017 10:04AMOther chronic painMay 2017 10:04AMBMI 35.0-35.9,adultMay 2017 10:04AMHypertensionMay 2017 10:04AM Major depressive disorder, recurrent episode, moderateJun 2017 10:35AM Dorsalgia, unspecifiedJun 2017 10:03AMOther chronic painJun 2017 10:03AM AnxietyJun 2017 10:03AMBitten or stung by nonvenomous insect and other nonvenomous arthropods, initial encounterJun 2017 10:03AMBMI 35.0-35.9,adult Jose 2017 10:03AMLeft shoulder painJun 2017 10:03AM Name Date of Onset Comments Hypothyroidism DizzinessCAD (coronary artery disease)ASHD (arteriosclerotic heart disease) Ventral herniaDiabetes mellitus type 2 in obese04/14/2015HTN (hypertension)Type 2 diabetes fvicykey77/30/2018Lumbar spinal stenosisNov 2014 9:53AMDiabetes mellitus type 2 in obeseNov 2014 9:53AMTobacco dependenceNov 2014 9:53AM Dysthymic disorderNov 2014 10:53AMGeneralized anxiety disorderNov 2014 10:53AMTobacco use disorder, moderate, dependenceNov 2014 10:53AMInfluenza vaccine administeredNov 2014 9:53AMLumbar spinal stenosisDec 2014 10:39AM FatigueDec 2014 10:39AMDiabetes mellitus type 2 in obeseJan 2015 9:18AM Lumbar spinal stenosisJan 2015 9:18AMAnxiety and depressionApr 14 2015 9:18AM Obesity (BMI 30-39.9)Apr 14 2015 9:18AMTobacco dependenceApr 14 2015 9:18AM Dysthymic disorderAug 2015 3:15PMGeneralized anxiety disorderAug 8 2015 3:15PM Type 2 diabetes mellitusSep 2016 10:43AMHypertensionSep 2016 10:43AMType 2 diabetes mellitus with foot ulcerSep 2016 10:43AMNon-pressure chronic ulcer of other part of unspecified foot limited to breakdown of skinSep 2016 10:43AMAdult BMI 34.0-34.9 kg/sq mSep 2016 10:43AMPVD (peripheral vascular disease)Sep 2016 10:43AMURI (upper respiratory infection)Sep 2016 10:43AM MDD (major depressive disorder)Sep 2016 10:43AMLumbar foraminal stenosisSep 2016 10:43AMTobacco dependenceSep 2016 10:43AMMajor depressive disorder, recurrent episode, moderateSep 2016 11:37AMType 2 diabetes mellitusOct 2016 10:42AMSmokingOct 2016 10:42AMLeft shoulder painOct 2016 10:42AM Pressure ulcer of other site, stage 3Oct 2016 10:42AMBMI 40.0-44.9, adultOct 2016 10:42AMInfluenza vaccine administeredOct 2016 10:42AMType 2 diabetes mellitusNov 2016 1:44PMSmokingNov 2016 1:44PMGAD (generalized anxiety disorder)Feb 15 2017 1:44PMAdult BMI 39.0-39.9 kg/sq mNov 2016 1:44PMLumbago Nov 2016 1:44PMType 2 diabetes mellitusApr 2017 12:05PMEncounter for routine laboratory testingApr 2017 12:05PMBMI 35.0-35.9,adultApr 2017 12:05PMPain in leg, unspecifiedApr 2017 12:05PMOther chronic painApr 2017 12:05PMHyperlipemiaApr 2017 12:05PMBack painMay 2017 10:02AMBMI 35.0-35.9,adultMay 2017 10:02AMInsomniaMay 2017 10:02AMBone lossMay 2017 10:02AMEncounter for routine laboratory testingMay 2017 10:02AMCoughMay 2017 10:25AMLumbar painMay 2017 10:25AMHypertensionMay 2017 10:02AM Radiculopathy, lumbar regionMay 2017 10:04AMOther chronic painMay 2017 10:04AMBMI 35.0-35.9,adultMay 2017 10:04AMHypertensionMay 2017 10:04AM Major depressive disorder, recurrent episode, moderateJun 2017 10:35AM Dorsalgia, unspecifiedJun 2017 10:03AMOther chronic painJun 2017 10:03AM AnxietyJun 2017 10:03AMBitten or stung by nonvenomous insect and other nonvenomous arthropods, initial encounterJun 2017 10:03AMBMI 35.0-35.9,adult Jose 2017 10:03AMLeft shoulder painJun 2017 10:03AM Name Date of Onset Comments Hypothyroidism DizzinessCAD (coronary artery disease)ASHD (arteriosclerotic heart disease) Ventral herniaDiabetes mellitus type 2 in obese04/14/2015HTN (hypertension)Type 2 diabetes /30/2018Lumbar spinal stenosisNov 12 2014 9:53AMDiabetes mellitus type 2 in obeseNov 2014 9:53AMTobacco dependenceNov 12 2014 9:53AM Dysthymic disorderNov 2014 10:53AMGeneralized anxiety disorderNov 12 2014 10:53AMTobacco use disorder, moderate, dependenceNov 12 2014 10:53AMInfluenza vaccine administeredNov 2014 9:53AMLumbar spinal stenosisDec 11 2014 10:39AM FatigueDec 2014 10:39AMDiabetes mellitus type 2 in obeseJan 2015 9:18AM Lumbar spinal stenosisJan 2015 9:18AMAnxiety and depressionJan 2015 9:18AM Obesity (BMI 30-39.9)Apr 14 2015 9:18AMTobacco dependenceJan 2015 9:18AM Dysthymic disorderAug 8 2015 3:15PMGeneralized anxiety disorderAug 8 2015 3:15PM Type 2 diabetes mellitusSep 2016 10:43AMHypertensionSep 2016 10:43AMType 2 diabetes mellitus with foot ulcerSep 2016 10:43AMNon-pressure chronic ulcer of other part of unspecified foot limited to breakdown of skinSep 2016 10:43AMAdult BMI 34.0-34.9 kg/sq mSep 2016 10:43AMPVD (peripheral vascular disease)Sep 2016 10:43AMURI (upper respiratory infection)Sep 2016 10:43AM MDD (major depressive disorder)Dec 14 2016 10:43AMLumbar foraminal stenosisSep 2016 10:43AMTobacco dependenceSep 2016 10:43AMMajor depressive disorder, recurrent episode, moderateSep 2016 11:37AMType 2 diabetes mellitusOct 2016 10:42AMSmokingOct 2016 10:42AMLeft shoulder painOct 2016 10:42AM Pressure ulcer of other site, stage 3Oct 2016 10:42AMBMI 40.0-44.9, adultOct 2016 10:42AMInfluenza vaccine administeredOct 2016 10:42AMType 2 diabetes mellitusNov 2016 1:44PMSmokingNov 2016 1:44PMGAD (generalized anxiety disorder)Feb 15 2017 1:44PMAdult BMI 39.0-39.9 kg/sq mNov 2016 1:44PMLumbago Feb 15 2017 1:44PMType 2 diabetes mellitusApr 2017 12:05PMEncounter for routine laboratory testingApr 2017 12:05PMBMI 35.0-35.9,adultApr 2017 12:05PMPain in leg, unspecifiedApr 2017 12:05PMOther chronic painApr 2017 12:05PMHyperlipemiaApr 2017 12:05PMBack painMay 2017 10:02AMBMI 35.0-35.9,adultMay 2017 10:02AMInsomniaMay 2017 10:02AMBone lossMay 2017 10:02AMEncounter for routine laboratory testingMay 2017 10:02AMCoughMay 11 2017 10:25AMLumbar painMay 2017 10:25AMHypertensionMay 2017 10:02AM Radiculopathy, lumbar regionMay 2017 10:04AMOther chronic painMay 2017 10:04AMBMI 35.0-35.9,adultMay 2017 10:04AMHypertensionMay 2017 10:04AM Major depressive disorder, recurrent episode, moderateJun 2017 10:35AM Dorsalgia, unspecifiedJun 2017 10:03AMOther chronic painJun 2017 10:03AM AnxietyJun 2017 10:03AMBitten or stung by nonvenomous insect and other nonvenomous arthropods, initial encounterJun 2017 10:03AMBMI 35.0-35.9,adult Jose 2017 10:03AMLeft shoulder painJun 2017 10:03AM Name Date of Onset Comments Hypothyroidism DizzinessCAD (coronary artery disease)ASHD (arteriosclerotic heart disease) Ventral herniaDiabetes mellitus type 2 in obese04/14/2015HTN (hypertension)Type 2 diabetes xghscefu31/30/2018Lumbar spinal stenosisNov 12 2014 9:53AMDiabetes mellitus type 2 in obeseNov 2014 9:53AMTobacco dependenceNov 12 2014 9:53AM Dysthymic disorderNov 12 2014 10:53AMGeneralized anxiety disorderNov 12 2014 10:53AMTobacco use disorder, moderate, dependenceNov 2014 10:53AMInfluenza vaccine administeredNov 2014 9:53AMLumbar spinal stenosisDec 11 2014 10:39AM FatigueDec 2014 10:39AMDiabetes mellitus type 2 in obeseJan 2015 9:18AM Lumbar spinal stenosisJan 2015 9:18AMAnxiety and depressionJan 2015 9:18AM Obesity (BMI 30-39.9)Apr 14 2015 9:18AMTobacco dependenceJan 2015 9:18AM Dysthymic disorderAug 8 2015 3:15PMGeneralized anxiety disorderAug 8 2015 3:15PM Type 2 diabetes mellitusSep 2016 10:43AMHypertensionSep 2016 10:43AMType 2 diabetes mellitus with foot ulcerSep 2016 10:43AMNon-pressure chronic ulcer of other part of unspecified foot limited to breakdown of skinSep 2016 10:43AMAdult BMI 34.0-34.9 kg/sq mSep 2016 10:43AMPVD (peripheral vascular disease)Sep 2016 10:43AMURI (upper respiratory infection)Sep 2016 10:43AM MDD (major depressive disorder)Sep 2016 10:43AMLumbar foraminal stenosisSep 2016 10:43AMTobacco dependenceSep 2016 10:43AMMajor depressive disorder, recurrent episode, moderateSep 2016 11:37AMType 2 diabetes mellitusOct 2016 10:42AMSmokingOct 2016 10:42AMLeft shoulder painOct 2016 10:42AM Pressure ulcer of other site, stage 3Oct 17 2017 10:42AMBMI 40.0-44.9, adultOct 2016 10:42AMInfluenza vaccine administeredOct 2016 10:42AMType 2 diabetes mellitusNov 2016 1:44PMSmokingNov 2016 1:44PMGAD (generalized anxiety disorder)Feb 15 2017 1:44PMAdult BMI 39.0-39.9 kg/sq mNov 2016 1:44PMLumbago Feb 15 2017 1:44PMType 2 diabetes mellitusApr 2017 12:05PMEncounter for routine laboratory testingApr 2017 12:05PMBMI 35.0-35.9,adultApr 2017 12:05PMPain in leg, unspecifiedApr 2017 12:05PMOther chronic painApr 2017 12:05PMHyperlipemiaApr 2017 12:05PMBack painMay 2017 10:02AMBMI 35.0-35.9,adultMay 2017 10:02AMInsomniaMay 2017 10:02AMBone lossMay 2017 10:02AMEncounter for routine laboratory testingMay 2017 10:02AMCoughMay 11 2017 10:25AMLumbar painMay 2017 10:25AMHypertensionMay 2017 10:02AM Radiculopathy, lumbar regionMay 2017 10:04AMOther chronic painMay 2017 10:04AMBMI 35.0-35.9,adultMay 2017 10:04AMHypertensionMay 18 2017 10:04AM Major depressive disorder, recurrent episode, moderateJun 2017 10:35AM Dorsalgia, unspecifiedJun 2017 10:03AMOther chronic painJun 2017 10:03AM AnxietyJun 2017 10:03AMBitten or stung by nonvenomous insect and other nonvenomous arthropods, initial encounterJun 2017 10:03AMBMI 35.0-35.9,adult Jose 2017 10:03AMLeft shoulder painJun 2017 10:03AMInfected toothJun 2017 10:15AM Name Date of Onset Comments Hypothyroidism DizzinessCAD (coronary artery disease)ASHD (arteriosclerotic heart disease) Ventral herniaDiabetes mellitus type 2 in obese04/14/2015HTN (hypertension)Type 2 diabetes vdoebois10/30/2018Lumbar spinal stenosisNov 12 2014 9:53AMDiabetes mellitus type 2 in obeseNov 2014 9:53AMTobacco dependenceNov 12 2014 9:53AM Dysthymic disorderNov 12 2014 10:53AMGeneralized anxiety disorderNov 12 2014 10:53AMTobacco use disorder, moderate, dependenceNov 12 2014 10:53AMInfluenza vaccine administeredNov 2014 9:53AMLumbar spinal stenosisDec 11 2014 10:39AM FatigueDec 2014 10:39AMDiabetes mellitus type 2 in obeseJan 2015 9:18AM Lumbar spinal stenosisJan 2015 9:18AMAnxiety and depressionJan 2015 9:18AM Obesity (BMI 30-39.9)Apr 14 2015 9:18AMTobacco dependenceJan 14 2015 9:18AM Dysthymic disorderAug 8 2015 3:15PMGeneralized anxiety disorderAug 8 2015 3:15PM Type 2 diabetes mellitusSep 2016 10:43AMHypertensionSep 2016 10:43AMType 2 diabetes mellitus with foot ulcerSep 2016 10:43AMNon-pressure chronic ulcer of other part of unspecified foot limited to breakdown of skinSep 2016 10:43AMAdult BMI 34.0-34.9 kg/sq mSep 2016 10:43AMPVD (peripheral vascular disease)Sep 2016 10:43AMURI (upper respiratory infection)Sep 2016 10:43AM MDD (major depressive disorder)Sep 2016 10:43AMLumbar foraminal stenosisSep 2016 10:43AMTobacco dependenceSep 2016 10:43AMMajor depressive disorder, recurrent episode, moderateSep 2016 11:37AMType 2 diabetes mellitusOct 2016 10:42AMSmokingOct 2016 10:42AMLeft shoulder painOct 2016 10:42AM Pressure ulcer of other site, stage 3Oct 2016 10:42AMBMI 40.0-44.9, adultOct 2016 10:42AMInfluenza vaccine administeredOct 2016 10:42AMType 2 diabetes mellitusNov 2016 1:44PMSmokingNov 2016 1:44PMGAD (generalized anxiety disorder)Feb 15 2017 1:44PMAdult BMI 39.0-39.9 kg/sq mNov 2016 1:44PMLumbago Feb 15 2017 1:44PMType 2 diabetes mellitusApr 2017 12:05PMEncounter for routine laboratory testingApr 2017 12:05PMBMI 35.0-35.9,adultApr 2017 12:05PMPain in leg, unspecifiedApr 2017 12:05PMOther chronic painApr 2017 12:05PMHyperlipemiaApr 2017 12:05PMBack painMay 2017 10:02AMBMI 35.0-35.9,adultMay 2017 10:02AMInsomniaMay 2017 10:02AMBone lossMay 2017 10:02AMEncounter for routine laboratory testingMay 2017 10:02AMCoughMay 11 2017 10:25AMLumbar painMay 2017 10:25AMHypertensionMay 2017 10:02AM Radiculopathy, lumbar regionMay 2017 10:04AMOther chronic painMay 2017 10:04AMBMI 35.0-35.9,adultMay 2017 10:04AMHypertensionMay 2017 10:04AM Major depressive disorder, recurrent episode, moderateJun 2017 10:35AM Dorsalgia, unspecifiedJun 2017 10:03AMOther chronic painJun 2017 10:03AM AnxietyJun 2017 10:03AMBitten or stung by nonvenomous insect and other nonvenomous arthropods, initial encounterJun 2017 10:03AMBMI 35.0-35.9,adult Jose 2017 10:03AMLeft shoulder painJun 2017 10:03AM Name Date of Onset Comments Hypothyroidism DizzinessCAD (coronary artery disease)ASHD (arteriosclerotic heart disease) Ventral herniaDiabetes mellitus type 2 in obese04/14/2015HTN (hypertension)Type 2 diabetes /30/2018Lumbar spinal stenosisNov 2014 9:53AMDiabetes mellitus type 2 in obeseNov 12 2014 9:53AMTobacco dependenceNov 12 2014 9:53AM Dysthymic disorderNov 12 2014 10:53AMGeneralized anxiety disorderNov 12 2014 10:53AMTobacco use disorder, moderate, dependenceNov 2014 10:53AMInfluenza vaccine administeredNov 2014 9:53AMLumbar spinal stenosisDec 2014 10:39AM FatigueDec 2014 10:39AMDiabetes mellitus type 2 in obeseApr 14 2015 9:18AM Lumbar spinal stenosisApr 14 2015 9:18AMAnxiety and depressionApr 14 2015 9:18AM Obesity (BMI 30-39.9)Apr 14 2015 9:18AMTobacco dependenceApr 14 2015 9:18AM Dysthymic disorderAug 2015 3:15PMGeneralized anxiety disorderAug 2015 3:15PM Type 2 diabetes mellitusSep 2016 10:43AMHypertensionSep 2016 10:43AMType 2 diabetes mellitus with foot ulcerSep 2016 10:43AMNon-pressure chronic ulcer of other part of unspecified foot limited to breakdown of skinSep 2016 10:43AMAdult BMI 34.0-34.9 kg/sq mSep 2016 10:43AMPVD (peripheral vascular disease)Sep 2016 10:43AMURI (upper respiratory infection)Sep 2016 10:43AM MDD (major depressive disorder)Sep 2016 10:43AMLumbar foraminal stenosisSep 2016 10:43AMTobacco dependenceSep 2016 10:43AMMajor depressive disorder, recurrent episode, moderateSep 2016 11:37AMType 2 diabetes mellitusOct 2016 10:42AMSmokingOct 2016 10:42AMLeft shoulder painOct 2016 10:42AM Pressure ulcer of other site, stage 3Oct 2016 10:42AMBMI 40.0-44.9, adultOct 17 2016 10:42AMInfluenza vaccine administeredOct 2016 10:42AMType 2 diabetes mellitusNov 2016 1:44PMSmokingNov 2016 1:44PMGAD (generalized anxiety disorder)Nov 2016 1:44PMAdult BMI 39.0-39.9 kg/sq mNov 2016 1:44PMLumbago Nov 2016 1:44PMType 2 diabetes mellitusApr 2017 12:05PMEncounter for routine laboratory testingApr 2017 12:05PMBMI 35.0-35.9,adultApr 2017 12:05PMPain in leg, unspecifiedApr 2017 12:05PMOther chronic painApr 2017 12:05PMHyperlipemiaApr 2017 12:05PMBack painMay 2017 10:02AMBMI 35.0-35.9,adultMay 2017 10:02AMInsomniaMay 8 2018 10:02AMBone lossMay 2017 10:02AMEncounter for routine laboratory testingMay 2017 10:02AMCoughMay 2017 10:25AMLumbar painMay 11 2017 10:25AMHypertensionMay 2017 10:02AM Radiculopathy, lumbar regionMay 2017 10:04AMOther chronic painMay 18 2017 10:04AMBMI 35.0-35.9,adultMay 2017 10:04AMHypertensionMay 18 2017 10:04AM Major depressive disorder, recurrent episode, moderateJun 2017 10:35AM Dorsalgia, unspecifiedJun 2017 10:03AMOther chronic painJun 2017 10:03AM AnxietyJun 2017 10:03AMBitten or stung by nonvenomous insect and other nonvenomous arthropods, initial encounterJun 2017 10:03AMBMI 35.0-35.9,adult Jose 2017 10:03AMLeft shoulder painJun 2017 10:03AM Summary Purpose Family History No Family History Records Found Description Last Updated Family history changed 04/29/2018 Family history of heart disease 04/29/19 19 Family history of hypertension 9 Family in good health 04/29/2018 Maternal history of oncologic disorder 0 04/29/2018 Maternal history of respiratory disorder 04/29/2018 No family history of acute myocardial in farction prior to age 50 04/29/2018 No family history of cancer 04/29/2018 No family history of early deaths 2018 Paternal history of oncologic disorder 0 04/29/2018 Paternal history of respiratory disorder 04/29/2018 Description Last Updated Family history changed 04/29/2018 Family history of heart disease 04/29/19 19 Family history of hypertension 9 Family in good health 04/29/2018 No family history of acute myocardial in farction prior to age 50 04/29/2018 No family history of cancer 04/29/2018 No family history of early deaths 2018 Maternal history of oncologic disorder 0 04/29/2018 Maternal history of respiratory disorder 04/29/2018 Paternal history of oncologic disorder 0 04/29/2018 Paternal history of respiratory disorder 04/29/2018 Advance Directives No Advanced Directives Records FoundDocuments on File TypeDate RecordedPatient RepresentativeExplanationAdvance Directives and Living WillPower of AttorneyCode StatusDate ActivatedDate InactivatedCommentsFull Code 06/05/2018 10:44 AM06/08/2018 2:20 PMFull Code02/25/2018 9:11 AM02/26/2018 2:49 AM Full Code02/25/2018 7:28 AM02/25/2018 9:11 AMFull Code12/24/2012 11:53 AM 12/24/2012 4:58 PMFull Code12/24/2012 10:11 AM12/24/2012 11:53 AMCode StatusDate ActivatedDate InactivatedCommentsFull Code04/21/2019 10:31 PM04/26/2019 3:18 PM Full Code06/05/2018 10:44 AM06/08/2018 2:20 PMTypeDate RecordedPatient RepresentativeExplanationAdvance Directives and Living WillPower of AttorneyCode StatusDate ActivatedDate InactivatedCommentsFull Code07/18/2019 1:28 AM07/25/2019 4:45 PMFull Code04/21/2019 10:31 PM04/26/2019 3:18 PMFull Code06/05/2018 10:44 AM 06/08/2018 2:20 PMFull Code02/25/2018 9:11 AM02/26/2018 2:49 AMFull Code 02/25/2018 7:28 AM02/25/2018 9:11 AMCode StatusDate ActivatedDate Inactivated CommentsFull Code07/18/2019 1:28 AM07/25/2019 4:45 PMFull Code04/21/2019 10:31 PM 04/26/2019 3:18 PMTypeDate RecordedPatient RepresentativeExplanationACP-Advance DirectiveACP-Power of AttorneyTypeDate RecordedPatient RepresentativeExplanation ACP-Advance DirectiveACP-Power of AttorneyCode StatusDate ActivatedDate InactivatedCommentsFull Code03/17/2020 8:08 PMFull Code03/17/2020 5:53 PM 03/17/2020 8:08 PMFull Code03/17/2020 5:53 PM03/17/2020 5:53 PMFull Code 03/17/2020 4:24 PM03/17/2020 5:53 PMCode StatusDate ActivatedDate Inactivated CommentsFull Code03/18/2020 1:51 PMFull Code03/18/2020 12:30 PM03/18/2020 1:50 PMFull Code03/17/2020 8:08 PM03/18/2020 12:30 PMFull Code03/17/2020 5:53 PM 03/17/2020 8:08 PMFull Code03/17/2020 5:53 PM03/17/2020 5:53 PMCode StatusDate ActivatedDate InactivatedCommentsFull Code03/18/2020 1:51 PM03/19/2020 5:35 PM Full Code03/18/2020 12:30 PM03/18/2020 1:50 PMFull Code03/17/2020 8:08 PM 03/18/2020 12:30 PMCode StatusDate ActivatedDate InactivatedCommentsFull Code 06/05/2018 10:44 AM06/08/2018 2:20 PMFull Code12/24/2012 11:53 AM12/24/2012 4:58 PM Full Code12/24/2012 10:11 AM12/24/2012 11:53 AMCode StatusDate ActivatedDate InactivatedCommentsFull Code07/18/2019 1:28 AMCode StatusDate ActivatedDate InactivatedCommentsFull Code03/18/2020 1:51 PM03/19/2020 5:35 PMCode StatusDate ActivatedDate InactivatedCommentsFull Code05/13/2021 9:24 AM05/17/2021 4:01 PMFull Code05/01/2021 7:55 PM2 3:54 PMFull Code03/18/2020 1:51 PM03/19/2020 5:35 PMNameRelationshipHealthcare Agent RelationshipCommunicationSouth[facility] Brother/SisterPrimary Decision Maker* * Serafin OlivarezChildSecondary Decision Maker* * Code StatusDate ActivatedDate InactivatedCommentsFull Code05/13/2021 9:24 AM 05/17/2021 4:01 PMFull Code05/01/2021 7:55 PM2 3:54 PMFull Code03/18/2020 1:51 PM03/19/2020 5:35 PMNameRelationshipHealthcare Agent Relationship CommunicationBaMassachusetts Mental Health CenterBrother/SisterPrimary Decision Maker* * Serafin OlivarezChildSecondary Decision Maker* * Code StatusDate ActivatedDate InactivatedCommentsFull Code04/21/2019 10:31 PMCode StatusDate ActivatedDate InactivatedCommentsDNR Suspension07/19/2021 2:29 PMName RelationshipHealthcare Agent RelationshipCommunicationBaMassachusetts Mental Health CenterBrother/Sister Primary Decision Maker* * Serafin OlivarezChildSecondary Decision Maker* * NameRelationshipHealthcare Agent RelationshipCommunicationElderMassachusetts Mental Health Center Brother/SisterPrimary Decision Maker* * Serafin OlivarezChildSecondary Decision Maker* * NameRelationshipHealthcare Agent RelationshipCommunicationBaMassachusetts Mental Health Center Brother/SisterPrimary Decision Maker* * Serafin OlivarezChildSecondary Decision Maker* * Code StatusDate ActivatedDate InactivatedCommentsDNR Suspension07/19/2021 2:29 PM Code StatusDate ActivatedDate InactivatedCommentsFull Code05/13/2021 9:24 AM 05/17/2021 4:01 PMCode StatusDate ActivatedDate InactivatedCommentsFull Code 05/01/2021 7:55 PM2/10/2021 3:54 PMFull Code03/18/2020 1:51 PM03/19/2020 5:35 PM Full Code03/18/2020 12:30 PM03/18/2020 1:50 PMFull Code03/17/2020 8:08 PM 03/18/2020 12:30 PMNameRelationshipHealthcare Agent RelationshipCommunication Fay () DaljitBrother/SisterPrimary Decision Maker* * Serafin BiggsckChildSecondary Decision Maker* * NameRelationshipHealthcare Agent RelationshipCommunicationBambi () Daljit Brother/SisterPrimary Decision Maker* * Serafin BiggsckChildSecondary Decision Maker* * NameRelationshipHealthcare Agent RelationshipCommunicationBambi () Daljit Brother/SisterPrimary Decision Maker* * Serafin OlivarezChildSecondary Decision Maker* * NameRelationshipHealthcare Agent RelationshipCommunicationBambi () Daljit Brother/SisterPrimary Decision Maker* * Serafin OlivarezChildSecondary Decision Maker* * TypeDate RecordedPatient RepresentativeExplanationACP-Advance Directive12/17/2022 2:10 PMDate ActivatedDate InactivatedComments12/13/2022 1:30 PM12/14/2022 8:36 PM Date ActivatedDate InactivatedComments05/13/2021 9:24 AM05/17/2021 4:01 PMDate ActivatedDate InactivatedComments05/01/2021 7:55 PM2 3:54 PMDate Activated Date PednkbadapkNtsyroip95/18/2020 1:51 PM03/19/2020 5:35 PMDate ActivatedDate ReavsjruddoDtwdinvb66/18/2020 12:30 PM03/18/2020 1:50 PMNameRelationship Healthcare Agent RelationshipCommunicationBambi () Abbyther/Sister Primary Decision Maker* * Serafin OlivarezChildSecondary Decision Maker* * Advance Directive Response Recorded Date/ Time Advance Directives No January 19, 2024 6:01pm Date ActivatedDate UohdtbbokpsPjvfmkcx27/11/2024 12:31 AM01/18/2024 3:18 PMDate ActivatedDate YzvdloptcjrJdpbkyvd82/7/2024 4:06 PM10 10:56 PMDate ActivatedDate InactivatedComments11/10/2022 5:40 AM11/19/2022 8:58 PMDate ActivatedDate InactivatedComments10/22/2022 5:48 AM10/23/2022 5:00 PMDate ActivatedDate InactivatedComments09/25/2022 1:11 AM09/26/2022 6:33 PMDate ActivatedDate WvkrdkhycgzIcxmkatj20/11/2024 12:31 AMDate ActivatedDate ZvpudrpmdagLydnclrp73/7/2024 4:06 PM10 10:56 PMDate ActivatedDate InactivatedComments11/10/2022 5:40 AM11/19/2022 8:58 PMDate ActivatedDate InactivatedComments10/22/2022 5:48 AM10/23/2022 5:00 PMDate ActivatedDate InactivatedComments09/25/2022 1:11 AM09/26/2022 6:33 PMDate ActivatedDate ZhznxtczbczNougsyzs83/11/2024 12:31 AMDate ActivatedDate InactivatedComments 07/13/2024 5:15 PM07/16/2024 5:48 PMDate ActivatedDate InactivatedComments 01/10/2024 12:31 AM01/18/2024 3:18 PMDate ActivatedDate InactivatedComments 01/06/2024 4:06 PM10 10:56 PMDate ActivatedDate InactivatedComments 11/10/2022 5:40 AM11/19/2022 8:58 PMDate ActivatedDate InactivatedComments 10/22/2022 5:48 AM10/23/2022 5:00 PMTypeDate RecordedPatient Lead Systems Analyst ExplanationACP-Advance Directive12/17/2022 2:10 PMDate ActivatedDate Inactivated Comments08/06/2024 3:00 PMDate ActivatedDate InactivatedComments12/13/2022 1:30 PM 12/14/2022 8:36 PMDate ActivatedDate InactivatedComments05/13/2021 9:24 AM 05/17/2021 4:01 PMDate ActivatedDate InactivatedComments05/01/2021 7:55 PM2 3:54 PMDate ActivatedDate BogkyqqbssqBnrzjxsv44/18/2020 1:51 PM03/19/2020 5:35 PMNameRelationshipHealthcare Agent RelationshipCommunicationBob [facility] Secondary Decision Maker* * Date ActivatedDate InactivatedComments08/12/2024 3:27 PMDate ActivatedDate InactivatedComments08/06/2024 3:00 PM08/10/2024 11:12 PMDate ActivatedDate InactivatedComments12/13/2022 1:30 PM12/14/2022 8:36 PMDate ActivatedDate InactivatedComments05/13/2021 9:24 AM05/17/2021 4:01 PMDate ActivatedDate InactivatedComments05/01/2021 7:55 PM2 3:54 PMNameRelationshipHealthcare Agent RelationshipCommunicationBob St[facility] HospitalSecondary Decision Maker* * Date ActivatedDate InactivatedComments08/12/2024 3:27 PM08/17/2024 2:18 PMName RelationshipHealthcare Agent RelationshipCommunicationBob St. [facility] HospitalSecondary Decision Maker* * TypeDate RecordedPatient RepresentativeExplanationACP-Advance Directive12/17/2022 2:10 PMACP-Advance Directive10/23/2024 9:59 AMLiving WillDate ActivatedDate InactivatedComments10/22/2024 3:38 PM10/26/2024 6:38 PMDate ActivatedDate InactivatedComments08/12/2024 3:27 PM08/17/2024 2:18 PMDate ActivatedDate InactivatedComments08/06/2024 3:00 PM08/10/2024 11:12 PMDate ActivatedDate InactivatedComments12/13/2022 1:30 PM12/14/2022 8:36 PMDate ActivatedDate InactivatedComments05/13/2021 9:24 AM05/17/2021 4:01 PMNameRelationshipHealthcare Agent RelationshipCommunicationBob [facility] Decision Maker* Date ActivatedDate InactivatedComments12/05/2024 5:34 PMDate ActivatedDate InactivatedComments07/13/2024 5:15 PM07/16/2024 5:48 PMDate ActivatedDate RcnzgoxnkigBxdqbxsd73/11/2024 12:31 AM01/18/2024 3:18 PMDate ActivatedDate XbbbrlyxcvnAhmxlpjz90/7/2024 4:06 PM10 10:56 PMDate ActivatedDate InactivatedComments11/10/2022 5:40 AM11/19/2022 8:58 PMDate ActivatedDate BcdgylhxeijXdiskqhj95/2/2025 12:14 AMDate ActivatedDate InactivatedComments 12/13/2024 3:44 PM12/17/2024 8:38 PMDate ActivatedDate InactivatedComments12/05/2024 5:34 PM12/11/2024 5:15 PMDate ActivatedDate InactivatedComments07/13/2024 5:15 PM 07/16/2024 5:48 PMDate ActivatedDate XikofqgopqyLykosibb45/11/2024 12:31 AM 01/18/2024 3:18 PM Assessments Findings Encounter Date Body mass index Medical Established Patient with Vahid Nagy [facility] 08/27/2018 Obesity due to excess calories Medical E stablished Patient with Vahid Nagy [employer] 08/27/2018 F17.210 - Nicotine dependenc e, cigarettes, uncomplicated Established Patient with Zach Grimaldo [facility] 07/28/2018 F34.1 - Dysthymic disorder Establishe d Patient with Zach Grimaldo [facility] 07/28/2018 F41.1 - Generalized anxiety disorder Established Patient with Zach Grimaldo [facility] 07/28/2018 Assess diabetes mellitus Medical Establi shed Patient with Vahid Nagy [facility] 07/28/2018 Assess generalized anxiety disorder [facility] Established Patient with Vahid Nagy [facility] 07/28/2018 Assess lumbago Medical Established Patient with Vahid Nagy [facility] 07/28/2018 Assess perennial allergic rh initis with seasonal variation Medical Established Patient with Vahid Nagy [facility] 07/28/2018 Body mass index Medical Established Patient with Vahid Nagy [facility] 07/28/2018 Obesity due to excess calories Medical E stablished Patient with Vahid Nagy [facility] 07/28/2018 Assess tobacco abuse Medical Established Patient with Vahid Nagy [facility] 06/27/2018 Assessment of chronic lower back pain Me dical Established Patient with Vahid Nagy [facility] 06/27/2018 Obesity due to excess calories Medical E stablished Patient with Vahidchristiano Nagy [facility] 06/27/2018 Obesity due to excess calories Medical E stablished Patient with Vahid Nagy [facility] 05/30/2018 Findings Encounter Date Assess dermatitis Medical Established Patient with Vahid Nagy [facility] 09/30/2018 Assess urinary tract infection Medical E stablished Patient with Vahid Nagy [facility] 09/30/2018 Body mass index Medical Established Patient with Vahid Nagy [facility] 08/27/2018 Obesity due to excess calories Medical E stablished Patient with Vahid Nagy [facility] 08/27/2018 F17.210 - Nicotine dependenc e, cigarettes, uncomplicated Established Patient with Zach Grimaldo [facility] 07/28/2018 F34.1 - Dysthymic disorder Establishe d Patient with Zach Grimaldo [facility] 07/28/2018 F41.1 - Generalized anxiety disorder Established Patient with Zach Grimaldo [facility] 07/28/2018 Assess diabetes mellitus Medical Establi shed Patient with Vahid Nagy [facility] 07/28/2018 Assess generalized anxiety disorder [facility] Established Patient with Vahid Nagy [facility] 07/28/2018 Assess lumbago Medical Established Patient with Vahid Nagy [facility] 07/28/2018 Assess perennial allergic rh initis with seasonal variation Medical Established Patient with Vahid Nagy [facility] 07/28/2018 Body mass index Medical Established Patient with Vahid Nagy [facility] 07/28/2018 Obesity due to excess calories Medical E stablished Patient with Vahid Nagy [facility] 07/28/2018 Assess tobacco abuse Medical Established Patient with Vahid Nagy [facility] 06/27/2018 Assessment of chronic lower back pain Me dical Established Patient with Vahid Nagy [facility] 06/27/2018 Obesity due to excess calories Medical E stablished Patient with Vahid Nagy [facility] 06/27/2018 Obesity due to excess calories Medical E stablished Patient with Vahid Nagy [facility] 05/30/2018 Findings Encounter Date Body mass index [Body mass i ndex (BMI) 35.0-35.9 adult] [facility] Diabetes Risk Test Score was three score 01/12/2019 Medical Established Patient [facility] 01/12/2019 Fagerstrom Score was 0 01/12/2019 Medica l [facility] Limb pain of shoulder region Medical [facility] Obesity due to excess calories Medical [facility] PHQ-9: total score was 18 01/12/2019 Med ical [facility] Assess bronchitis Medical Established Patient with Vahid Nagy [facility] 12/11/2018 Irreducible ventral hernia Medical Estab lished Patient with Vahid Nagy [facility] 12/11/2018 Obesity due to excess calories Medical E stablished Patient with Vahid Nagy [facility] 12/11/2018 Z68.32 - Body mass index (BM I) 32.0-32.9 adult Medical Established Patient with Vahid Nagy [facility] 12/11/2018 Body mass index Medical Established Patient with Vahid Nagy [facility] 10/30/2018 Assess dermatitis Medical Established Patient with Vahid Nagy [facility] 09/30/2018 Assess urinary tract infection Medical E stablished Patient with Vahid Nagy [facility] 09/30/2018 Body mass index Medical Established Patient with Vahid Nagy [facility] 08/27/2018 Obesity due to excess calories Medical E stablished Patient with Vahid Nagy [facility] 08/27/2018 F17.210 - Nicotine dependenc e, cigarettes, uncomplicated BH Established Patient with Zach Grimaldo [facility] 07/28/2018 F34.1 - Dysthymic disorder Establishe d Patient with Zach Grimaldo [facility] 07/28/2018 F41.1 - Generalized anxiety disorder BH Established Patient with Zach Grimaldo [facility] 07/28/2018 Assess diabetes mellitus Medical Establi shed Patient with Vahid Nagy [facility] 07/28/2018 Assess generalized anxiety disorder [facility] Established Patient with Vahid Nagy [facility] 07/28/2018 Assess lumbago Medical Established Patient with Vahid Nagy [facility] 07/28/2018 Assess perennial allergic rh initis with seasonal variation Medical Established Patient with Vahid Nagy [facility] 07/28/2018 Body mass index Medical Established Patient with Vahid Nagy [facility] 07/28/2018 Obesity due to excess calories Medical E stablished Patient with Vahid Nagy [facility] 07/28/2018 Assess tobacco abuse Medical Established Patient with Vahid Nagy [facility] 06/27/2018 Assessment of chronic lower back pain Me dical Established Patient with Vahid Nagy [facility] 06/27/2018 Obesity due to excess calories Medical E stablished Patient with Vahid Nagy [facility] 06/27/2018 Obesity due to excess calories Medical E stablished Patient with Vahid Nagy [facility] 05/30/2018 Diagnosis Near syncope- Primary Syncope and collapse Fall from standing, initial encounter Hyponatremia Hyposmolality and/or hyponatremia Diagnosis Pain of left upper extremity Findings Encounter Date Body mass index Medical Established Patient with Vahid Nagy [facility] 01/22/2019 Obesity due to excess calories Medical E stablished Patient with Vahid Nagy [facility] 01/22/2019 Body mass index [Body mass i ndex (BMI) 35.0-35.9 adult] Medical Established Patient with Elena Diazer [facility] 01/12/2019 Diabetes Risk Test Score was three score 01/12/2019 Medical Established Patient with Elena Diazer [facility] 01/12/2019 Fagerstrom Score was 0 01/12/2019 Medica l Established Patient with Elena Malik [facility] 01/12/2019 Limb pain of shoulder region Medical Est ablished Patient with Elenaradha Malik [facility] 01/12/2019 Obesity due to excess calories Medical E stablished Patient with Elena Diazer [facility] 01/12/2019 PHQ-9: total score was 18 01/12/2019 Med ical Established Patient with Elena Malik [facility] 01/12/2019 Assess bronchitis Medical Established Patient with Vahid Nagy [facility] 12/11/2018 Irreducible ventral hernia Medical Estab lished Patient with Vahid Nagy [facility] 12/11/2018 Obesity due to excess calories Medical E stablished Patient with Vahid Nagy [facility] 12/11/2018 Z68.32 - Body mass index (BM I) 32.0-32.9 adult Medical Established Patient with Vahid Nagy [facility] 12/11/2018 Body mass index Medical Established Patient with Vahid Nagy [facility] 10/30/2018 Assess dermatitis Medical Established Patient with Vahid Nagy [facility] 09/30/2018 Assess urinary tract infection Medical E stablished Patient with Vahidchristiano Nagy [facility] 09/30/2018 Body mass index Medical Established Patient with Vahid Nagy [facility] 08/27/2018 Obesity due to excess calories Medical E stablished Patient with Vahid Nagy [facility] 08/27/2018 F17.210 - Nicotine dependenc e, cigarettes, uncomplicated Established Patient with Zach Grimaldo [facility] 07/28/2018 F34.1 - Dysthymic disorder Establishe d Patient with Zach Grimaldo [facility] 07/28/2018 F41.1 - Generalized anxiety disorder Established Patient with Zach Grimaldo [facility] 07/28/2018 Assess diabetes mellitus Medical Establi shed Patient with Vahid Breweren [facility] 07/28/2018 Assess generalized anxiety disorder [facility] Established Patient with Vahid Angelita [facility] 07/28/2018 Assess lumbago Medical Established Patient with Vahid Nagy [facility] 07/28/2018 Assess perennial allergic rh initis with seasonal variation Medical Established Patient with Vahid Nagy [facility] 07/28/2018 Body mass index Medical Established Patient with Vahid Angelita [facility] 07/28/2018 Obesity due to excess calories Medical E stablished Patient with Vahid Nagy [facility] 07/28/2018 Assess tobacco abuse Medical Established Patient with Vahid Nagy [facility] 06/27/2018 Assessment of chronic lower back pain Me dical Established Patient with Vahid Angelita [facility] 06/27/2018 Obesity due to excess calories Medical E stablished Patient with Vahid Angelita [facility] 06/27/2018 Obesity due to excess calories Medical E stablished Patient with Vahid Angelita [facility] 05/30/2018 Findings Encounter Date Generalized anxiety disorder Establis hed Patient with Zach Grimaldo [facility] 02/19/2019 Persistent depressive disord er (dysthymia) Established Patient with Zach Grimaldo [facility] 02/19/2019 Body mass index Medical Established Patient with Vahid Nagy [facility] 02/19/2019 Generalized anxiety disorder Medical Est ablished Patient with Vahid Nagy [facility] 02/19/2019 Lumbago Medical Established Patient with Vahid Nagy [facility] 02/19/2019 Lumbar radiculopathy Medical Established Patient with Vahid Nagy [facility] 02/19/2019 Obesity due to excess calories Medical E stablished Patient with Vahid Nagy [facility] 02/19/2019 Body mass index Medical Established Patient with Vahid Nagy [facility] 01/22/2019 Obesity due to excess calories Medical E stablished Patient with Vahid Nagy [facility] 01/22/2019 Body mass index [Body mass i ndex (BMI) 35.0-35.9 adult] [facility] Diabetes Risk Test Score was three score 01/12/2019 [facility] Fagerstrom Score was 0 01/12/2019 Medica l [facility] Limb pain of shoulder region Medical [facility] Obesity due to excess calories [facility] PHQ-9: total score was 18 01/12/2019 Med ical [facility] Assess bronchitis Medical Established Patient with Vahid Nagy [facility] 12/11/2018 Irreducible ventral hernia Medical Estab lished Patient with Vahid Nagy [facility] 12/11/2018 Obesity due to excess calories Medical E stablished Patient with Vahid Nagy [facility] 12/11/2018 Z68.32 - Body mass index (BM I) 32.0-32.9 adult Medical Established Patient with Vahid Nagy [facility] 12/11/2018 Body mass index Medical Established Patient with Vahid Nagy [facility] 10/30/2018 Assess dermatitis Medical Established Patient with Vahid Nagy [facility] 09/30/2018 Assess urinary tract infection Medical E stablished Patient with Vahid Nagy [facility] 09/30/2018 Body mass index Medical Established Patient with Vahid Nagy [facility] 08/27/2018 Obesity due to excess calories Medical E stablished Patient with Vahid Nagy [facility] 08/27/2018 F17.210 - Nicotine dependenc e, cigarettes, uncomplicated BH Established Patient with Zach Grimaldo [facility] 07/28/2018 F34.1 - Dysthymic disorder Establishe d Patient with Zach Grimaldo [facility] 07/28/2018 F41.1 - Generalized anxiety disorder Established Patient with Zach Grimaldo [facility] 07/28/2018 Assess diabetes mellitus Medical Establi shed Patient with Vahid Breweren [facility] 07/28/2018 Assess generalized anxiety disorder [facility]ан Established Patient with Vahid Breweren [facility] 07/28/2018 Assess lumbago Medical Established Patient with Vahid Breweren [facility] 07/28/2018 Assess perennial allergic rh initis with seasonal variation Medical Established Patient with Vahid Nagy [facility] 07/28/2018 Body mass index Medical Established Patient with Vahid Nagy [facility] 07/28/2018 Obesity due to excess calories Medical E stablished Patient with Vahid Nagy [facility] 07/28/2018 Assess tobacco abuse Medical Established Patient with Vahid Nagy [facility] 06/27/2018 Assessment of chronic lower back pain Me dical Established Patient with Vahid Breweren [facility] 06/27/2018 Obesity due to excess calories Medical E stablished Patient with Vahid Nagy [facility] 06/27/2018 Obesity due to excess calories Medical E stablished Patient with Vahid Nagy [facility] 05/30/2018 Diagnosis Abdominal pain, unspecified abdominal location- Primary Anxiety state Anxiety state, unspecified Findings Encounter Date Acute atopic conjunctivitis [Acute atopic conjunctivitis left eye] Medical Established Patient with Elena Diazer [facility] 03/03/2019 Acute sinusitis Medical Established Patient with Elena Diazer [facility] 03/03/2019 Body mass index [Body mass i ndex (BMI) 35.0-35.9 adult] Medical Established Patient with Elena King [facility] 03/03/2019 Generalized anxiety disorder BH Establis hed Patient with Zach Grimaldo [facility] 02/19/2019 Nicotine dependence Established Patie nt with Zach Grimaldo [facility] 02/19/2019 Persistent depressive disord er (dysthymia) Established Patient with Zach Grimaldo [facility] 02/19/2019 Body mass index Medical Established Patient with Vahid Angelita [facility] 02/19/2019 Generalized anxiety disorder Medical Est ablished Patient with Vahid Angelita [facility] 02/19/2019 Lumbago Medical Established Patient with Vahid Angelita [facility] 02/19/2019 Lumbar radiculopathy Medical Established Patient with Vahid Angelita [facility] 02/19/2019 Obesity due to excess calories Medical E stablished Patient with Vahid Angelita [facility] 02/19/2019 Body mass index Medical Established Patient with Vahid Nagy [facility] 01/22/2019 Obesity due to excess calories Medical E stablished Patient with Vahid Nagy [facility] 01/22/2019 Body mass index [Body mass i ndex (BMI) 35.0-35.9 adult] Medical Established Patient with Elena Malik [facility] 01/12/2019 Diabetes Risk Test Score was three score 01/12/2019 Medical Established Patient with Elena Malik [facility] 01/12/2019 Fagerstrom Score was 0 01/12/2019 Medica l Established Patient with Elena Malik [facility] 01/12/2019 Limb pain of shoulder region Medical Est ablished Patient with Elena Malik [facility] 01/12/2019 Obesity due to excess calories Medical E stablished Patient with Elena Malik [facility] 01/12/2019 PHQ-9: total score was 18 01/12/2019 Med ical Established Patient with Elena Malik [facility] 01/12/2019 Assess bronchitis Medical Established Patient with Vahid Nagy [facility] 12/11/2018 Irreducible ventral hernia Medical Estab lished Patient with Vahid Nagy [facility] 12/11/2018 Obesity due to excess calories Medical E stablished Patient with Vahid Nagy [facility] 12/11/2018 Z68.32 - Body mass index (BM I) 32.0-32.9 adult Medical Established Patient with Vahid Nagy [facility] 12/11/2018 Body mass index Medical Established Patient with Vahid Nagy [facility] 10/30/2018 Assess dermatitis Medical Established Patient with Vahid Nagy [facility] 09/30/2018 Assess urinary tract infection Medical E stablished Patient with Vahid Nagy [facility] 09/30/2018 Body mass index Medical Established Patient with Vahid Nagy [facility] 08/27/2018 Obesity due to excess calories Medical E stablished Patient with Vahid Nagy [facility] 08/27/2018 F17.210 - Nicotine dependenc e, cigarettes, uncomplicated Established Patient with Zach Grimaldo [facility] 07/28/2018 F34.1 - Dysthymic disorder Establishe d Patient with Zach Grimaldo [facility] 07/28/2018 F41.1 - Generalized anxiety disorder Established Patient with Zach Grimaldo [facility] 07/28/2018 Assess diabetes mellitus Medical Establi shed Patient with Vahid Nagy [facility] 07/28/2018 Assess generalized anxiety disorder [facility] Established Patient with Vahid Nagy [facility] 07/28/2018 Assess lumbago Medical Established Patient with Vahid Nagy [facility] 07/28/2018 Assess perennial allergic rh initis with seasonal variation Medical Established Patient with Vahid Nagy [facility] 07/28/2018 Body mass index Medical Established Patient with Vahid Nagy [facility] 07/28/2018 Obesity due to excess calories Medical E stablished Patient with Vahid Nagy [facility] 07/28/2018 Assess tobacco abuse Medical Established Patient with Vahid Nagy [facility] 06/27/2018 Assessment of chronic lower back pain Me dical Established Patient with Vahid Nagy [facility] 06/27/2018 Obesity due to excess calories Medical E stablished Patient with Vahid Nagy [facility] 06/27/2018 Obesity due to excess calories Medical E stablished Patient with Vahid Nagy [facility] 05/30/2018 Findings Encounter Date Obesity due to excess calories Medical E stablished Patient with Vahid Nagy [facility] 03/20/2019 Z68.36 - Body mass index (BM I) 36.0-36.9 adult Medical Established Patient with Vahid Nagy [facility] 03/20/2019 Acute atopic conjunctivitis [Acute atopic conjunctivitis left eye] Medical Established Patient with Elena Diazer [facility] 03/03/2019 Acute sinusitis Medical Established Patient with Elena Diazer [facility] 03/03/2019 Body mass index [Body mass i ndex (BMI) 35.0-35.9 adult] Medical Established Patient with Elena Diazer [facility] 03/03/2019 Generalized anxiety disorder Establis hed Patient with Zach Grimaldo [facility] 02/19/2019 Nicotine dependence Established Patie nt with Zach Grimaldo [facility] 02/19/2019 Persistent depressive disord er (dysthymia) Established Patient with Zach Grimaldo [facility] 02/19/2019 Body mass index Medical Established Patient with Vahid Angelita [facility] 02/19/2019 Generalized anxiety disorder Medical Est ablished Patient with Vahid Angelita [facility] 02/19/2019 Lumbago Medical Established Patient with Vahid Angelita [facility] 02/19/2019 Lumbar radiculopathy Medical Established Patient with Vahid Angelita [facility] 02/19/2019 Obesity due to excess calories Medical E stablished Patient with Vahid Angelita [facility] 02/19/2019 Body mass index Medical Established Patient with Vahid Angelita [facility] 01/22/2019 Obesity due to excess calories Medical E stablished Patient with Vahid Angelita [facility] 01/22/2019 Body mass index [Body mass i ndex (BMI) 35.0-35.9 adult] Medical Established Patient with Elena Malik [facility] 01/12/2019 Diabetes Risk Test Score was three score 01/12/2019 Medical Established Patient with Elena Malik [facility] 01/12/2019 Fagerstrom Score was 0 01/12/2019 [facility]ica l [facility] Limb pain of shoulder region Medical [facility]2019 Obesity due to excess calories Medical [facility] PHQ-9: total score was 18 01/12/2019 Med ical [facility] Assess bronchitis Medical Established Patient with Vahid Nagy [facility] 12/11/2018 Irreducible ventral hernia Medical Estab lished Patient with Vahid [facility] 12/11/2018 Obesity due to excess calories [facility] Z68.32 - Body mass index (BM I) 32.0-32.9 adult Medical [facility] Body mass index Medical Established Patient with Vahid Nagy [facility] 10/30/2018 Assess dermatitis Medical Established Patient with Vahid Nagy [facility] 09/30/2018 Assess urinary tract infection [facility] Body mass index Medical [facility] Obesity due to excess calories Medical E stablished Patient with Vahid Nagy [facility] 08/27/2018 F17.210 - Nicotine dependenc e, cigarettes, uncomplicated BH Established Patient with Zach Grimaldo [facility] 07/28/2018 F34.1 - Dysthymic disorder Establishe d Patient with Zach Grimaldo [facility] 07/28/2018 F41.1 - Generalized anxiety disorder Established Patient with Zach Grimaldo [facility] 07/28/2018 Assess diabetes mellitus Medical Establi shed [facility] Assess generalized anxiety disorder [facility] Assess lumbago Medical Established Patient with Vahid Nagy [facility] 07/28/2018 Assess perennial allergic rh initis with seasonal variation Medical Established Patient with Vahid Nagy [facility] 07/28/2018 Body mass index Medical Established Patient with Vahid Nagy [facility] 07/28/2018 Obesity due to excess calories Medical E stablished Patient with Vahid Nagy [facility] 07/28/2018 Assess tobacco abuse Medical Established Patient with Vahid Nagy [facility] 06/27/2018 Assessment of chronic lower back pain Me dical Established Patient with Vahid Nagy [facility] 06/27/2018 Obesity due to excess calories Medical E stablished Patient with Vahid Nagy [facility] 06/27/2018 Obesity due to excess calories Medical E stablished Patient with Vahid Nagy [facility] 05/30/2018 Findings Encounter Date 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 Established Patient with Zach Grimaldo [facility] 04/14/2019 F41.1 - Generalized anxiety disorder Established Patient with Zach Grimaldo [facility] 04/14/2019 Obesity due to excess calories Medical E stablished Patient with Vahid Nagy [facility] 04/14/2019 Z68.36 - Body mass index (BM I) 36.0-36.9 adult Medical Established Patient with Vahid Nagy [facility] 04/14/2019 Obesity due to excess calories Medical E stablished Patient with Vahid Nagy [facility] 03/20/2019 Z68.36 - Body mass index (BM I) 36.0-36.9 adult Medical Established Patient with Vahid Nagy [facility] 03/20/2019 Acute atopic conjunctivitis [Acute atopic conjunctivitis left eye] Medical Established Patient with Elena Malik [facility] 03/03/2019 Acute sinusitis Medical Established Patient with Elena Diazer [facility] 03/03/2019 Body mass index [Body mass i ndex (BMI) 35.0-35.9 adult] Medical Established Patient with Elena King [facility] 03/03/2019 Generalized anxiety disorder Establis hed Patient with Zach Grimaldo [facility] 02/19/2019 Nicotine dependence Established Patie nt with Zach Grimaldo [facility] 02/19/2019 Persistent depressive disord er (dysthymia) Established Patient with Zach Grimaldo [facility] 02/19/2019 Body mass index Medical Established Patient with Vahid Breweren [facility] 02/19/2019 Generalized anxiety disorder Medical Est ablished Patient with Vahid Angelita [facility] 02/19/2019 Lumbago Medical Established Patient with Vahid Breweren [facility] 02/19/2019 Lumbar radiculopathy Medical Established Patient with Vahid Nagy [facility] 02/19/2019 Obesity due to excess calories Medical E stablished Patient with Vahid Nagy [facility] 02/19/2019 Body mass index Medical Established Patient with Vahid Nagy [facility] 01/22/2019 Obesity due to excess calories Medical E stablished Patient with Vahid Nayg [facility] 01/22/2019 Body mass index [Body mass i ndex (BMI) 35.0-35.9 adult] Medical Established Patient with Elena Malik [facility] 01/12/2019 Diabetes Risk Test Score was three score 01/12/2019 Medical Established Patient with Elena Malik [facility] 01/12/2019 Fagerstrom Score was 0 01/12/2019 Medica l Established Patient with Elena Malik [facility] 01/12/2019 Limb pain of shoulder region Medical Est ablished Patient with Elena Malik [facility] 01/12/2019 Obesity due to excess calories Medical E stablished Patient with Elena Malik [facility] 01/12/2019 PHQ-9: total score was 18 01/12/2019 Med ical [facility] Assess bronchitis Medical Established Patient with Vahid Nagy [facility] 12/11/2018 Irreducible ventral hernia Medical Estab lished Patient with Vahid Nagy [facility] 12/11/2018 Obesity due to excess calories Medical E stablished Patient with Vahid Nagy [facility] 12/11/2018 Z68.32 - Body mass index (BM I) 32.0-32.9 adult Medical Established Patient with Vahid Nagy [facility] 12/11/2018 Body mass index Medical Established Patient with Vahid Nagy [facility] 10/30/2018 Assess dermatitis Medical Established Patient with Vahid Nagy [facility] 09/30/2018 Assess urinary tract infection Medical E stablished Patient with Vahid Nagy [facility] 09/30/2018 Body mass index Medical Established Patient with Vahid Nagy [facility] 08/27/2018 Obesity due to excess calories Medical E stablished Patient with Vahid Nagy [facility] 08/27/2018 F17.210 - Nicotine dependenc e, cigarettes, uncomplicated BH Established Patient with Zach Grimaldo [facility] 07/28/2018 F34.1 - Dysthymic disorder Establishe d Patient with Zach Grimaldo [facility] 07/28/2018 F41.1 - Generalized anxiety disorder Established Patient with Zach Grimaldo [facility] 07/28/2018 Assess diabetes mellitus Medical Establi shed Patient with Vahid Nagy [facility] 07/28/2018 Assess generalized anxiety disorder [facility] Established Patient with Vahid Nagy [facility] 07/28/2018 Assess lumbago Medical Established Patient with Vahid Nagy [facility] 07/28/2018 Assess perennial allergic rh initis with seasonal variation Medical Established Patient with Vahid Nagy [facility] 07/28/2018 Body mass index Medical Established Patient with Vahid Nagy [facility] 07/28/2018 Obesity due to excess calories Medical E stablished Patient with Vhaid Nagy [facility] 07/28/2018 Assess tobacco abuse Medical Established Patient with Vahid Nagy [facility] 06/27/2018 Assessment of chronic lower back pain Me dical Established Patient with Vahid Nagy [facility] 06/27/2018 Obesity due to excess calories Medical E stablished Patient with Vahid Nagy [facility] 06/27/2018 Obesity due to excess calories Medical E stablished Patient with Vahid Nagy [facility] 05/30/2018 Findings Encounter Date Z68.37 - Body mass index (BM I) 37.0-37.9 adult Medical Established Patient with Vahid Nagy [facility] 05/01/2019 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 Established Patient with Zach Grimaldo [facility] 04/14/2019 F41.1 - Generalized anxiety disorder Established Patient with Zach Grimaldo [facility] 04/14/2019 Obesity due to excess calories Medical E stablished Patient with Vahid Nagy [facility] 04/14/2019 Z68.36 - Body mass index (BM I) 36.0-36.9 adult Medical Established Patient with Vahid Nagy [facility] 04/14/2019 Obesity due to excess calories Medical E stablished Patient with Vahid Nagy [facility] 03/20/2019 Z68.36 - Body mass index (BM I) 36.0-36.9 adult Medical Established Patient with Vahid Nagy [facility] 03/20/2019 Acute atopic conjunctivitis [Acute atopic conjunctivitis left eye] Medical Established Patient with Elena King [facility] 03/03/2019 Acute sinusitis Medical Established Patient with Elena King [facility] 03/03/2019 Body mass index [Body mass i ndex (BMI) 35.0-35.9 adult] Medical Established Patient with Elena King [facility] 03/03/2019 Generalized anxiety disorder Establis hed Patient with Zach Grimaldo [facility] 02/19/2019 Nicotine dependence Established Patie nt with Zach Grimaldo [facility] 02/19/2019 Persistent depressive disord er (dysthymia) Established Patient with Zach Grimaldo [facility] 02/19/2019 Body mass index Medical Established Patient with Vahid Nagy [facility] 02/19/2019 Generalized anxiety disorder Medical Est ablished Patient with Vahid Nagy [facility] 02/19/2019 Lumbago Medical Established Patient with Vahid Nagy [facility] 02/19/2019 Lumbar radiculopathy Medical Established Patient with Vahid Nagy [facility] 02/19/2019 Obesity due to excess calories Medical E stablished Patient with Vahid Nagy [facility] 02/19/2019 Body mass index Medical Established Patient with Vahid Nagy [facility] 01/22/2019 Obesity due to excess calories Medical E stablished Patient with Vahid Nagy [facility] 01/22/2019 Body mass index [Body mass i ndex (BMI) 35.0-35.9 adult] Medical Established Patient with Elena Diazer [facility] 01/12/2019 Diabetes Risk Test Score was three score 01/12/2019 Medical Established Patient with Elena Diazer [facility] 01/12/2019 Fagerstrom Score was 0 01/12/2019 Medica l Established Patient with Elena Diazer [facility] 01/12/2019 Limb pain of shoulder region Medical Est ablished Patient with Elena Malik [facility] 01/12/2019 Obesity due to excess calories Medical E stablished Patient with Elena Diazer [facility] 01/12/2019 PHQ-9: total score was 18 01/12/2019 Med ical Established Patient with Elena Malik [facility] 01/12/2019 Assess bronchitis Medical Established Patient with Vahid Nagy [facility] 12/11/2018 Irreducible ventral hernia Medical Estab lished Patient with Vahid Breweren [facility] 12/11/2018 Obesity due to excess calories Medical E stablished Patient with Vahid Nagy [facility] 12/11/2018 Z68.32 - Body mass index (BM I) 32.0-32.9 adult Medical Established Patient with Vahid Angelita [facility] 12/11/2018 Body mass index Medical Established Patient with Vahid Angelita [facility] 10/30/2018 Assess dermatitis Medical Established Patient with Vahid Angelita [facility] 09/30/2018 Assess urinary tract infection Medical E stablished Patient with Vahid Angelita [facility] 09/30/2018 Body mass index Medical Established Patient with Vahid Angelita [facility] 08/27/2018 Obesity due to excess calories Medical E stablished Patient with Vahid Angelita [facility] 08/27/2018 F17.210 - Nicotine dependenc e, cigarettes, uncomplicated Established Patient with Zach Grimaldo [facility] 07/28/2018 F34.1 - Dysthymic disorder Establishe d Patient with Zach Grimaldo [facility] 07/28/2018 F41.1 - Generalized anxiety disorder Established Patient with Zach Grimaldo [facility] 07/28/2018 Assess diabetes mellitus Medical Establi shed Patient with Vahid Nagy [facility] 07/28/2018 Assess generalized anxiety disorder [facility] иван Established Patient with Vahid Nagy [facility] 07/28/2018 Assess lumbago Medical Established Patient with Vahid Nagy [facility] 07/28/2018 Assess perennial allergic rh initis with seasonal variation Medical Established Patient with Vahid Nagy [facility] 07/28/2018 Body mass index Medical Established Patient with Vahid Nagy [facility] 07/28/2018 Obesity due to excess calories Medical E stablished Patient with Vahid Nagy [facility] 07/28/2018 Assess tobacco abuse Medical Established Patient with Vahid Nagy [facility] 06/27/2018 Assessment of chronic lower back pain Me dical Established Patient with Vahid Nagy [facility] 06/27/2018 Obesity due to excess calories Medical E stablished Patient with Vahid Nagy [facility] 06/27/2018 Obesity due to excess calories Medical E stablished Patient with Vahid Nagy [facility] 05/30/2018 Diagnosis Contusion of left hand, initial encounter- Primary Diagnosis Acute respiratory failure with hypoxia and hypercapnia (HCC) Viral pneumonia Viral pneumonia, unspecified Acute pulmonary edema (HCC) Acute edema of lung, unspecified Diagnosis Benign paroxysmal positional vertigo, unspecified laterality Findings Encounter Date Depressive disorder Telebehavioral alth with Laeh Short [facility] 08/26/2019 Generalized anxiety disorder [facility] with Leah Short [facility] 08/26/2019 Z68.37 - Body mass index (BM I) 37.0-37.9 adult Medical Established Patient with Vahid Nagy [facility] 05/01/2019 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 Established Patient with Zach Grimaldo [facility] 04/14/2019 F41.1 - Generalized anxiety disorder Established Patient with Zach Grimaldo [facility] 04/14/2019 Obesity due to excess calories Medical E stablished Patient with Vahid Nagy [facility] 04/14/2019 Z68.36 - Body mass index (BM I) 36.0-36.9 adult Medical Established Patient with Vahid Nagy [facility] 04/14/2019 Obesity due to excess calories Medical E stablished Patient with Vahid Nagy [employer] 03/20/2019 Z68.36 - Body mass index (BM I) 36.0-36.9 adult Medical Established Patient with Vahid Nagy [facility] 03/20/2019 Acute atopic conjunctivitis [Acute atopic conjunctivitis left eye] Medical Established Patient with Elena Diazer [employer] 03/03/2019 Acute sinusitis Medical Established Patient with Elena King [facility] 03/03/2019 Body mass index [Body mass i ndex (BMI) 35.0-35.9 adult] Medical Established Patient with Elena King [facility] 03/03/2019 Generalized anxiety disorder BH Establis hed Patient with Zach Grimaldo [facility] 02/19/2019 Nicotine dependence BH Established Patie nt with Zach Grimaldo [facility] 02/19/2019 Persistent depressive disord er (dysthymia) Established Patient with Zach Grimaldo [facility] 02/19/2019 Body mass index Medical Established Patient with Vahid Nagy [facility] 02/19/2019 Generalized anxiety disorder Medical Est ablished Patient with Vahid Nagy [facility] 02/19/2019 Lumbago Medical Established Patient with Vahid Nagy [facility] 02/19/2019 Lumbar radiculopathy Medical Established Patient with Vahid Nagy [facility] 02/19/2019 Obesity due to excess calories Medical E stablished Patient with Vahid Nagy [facility] 02/19/2019 Body mass index Medical Established Patient with Vahid Nagy [facility] 01/22/2019 Obesity due to excess calories Medical E stablished Patient with Vahidchristiano Nagy [facility] 01/22/2019 Body mass index [Body mass i ndex (BMI) 35.0-35.9 adult] Medical Established Patient with Elena King [facility] 01/12/2019 Diabetes Risk Test Score was three score 01/12/2019 Medical Established Patient with Elena King [facility] 01/12/2019 Fagerstrom Score was 0 01/12/2019 Medica l Established Patient with Elena King [employer] 01/12/2019 Limb pain of shoulder region Medical Est ablished Patient with Elena King [employer] 01/12/2019 Obesity due to excess calories Medical E stablished Patient with Elena King [employer] 01/12/2019 PHQ-9: total score was 18 01/12/2019 Med ical Established Patient with Elena King [facility] 01/12/2019 Assess bronchitis Medical Established Patient with Vahid Nagy [facility] 12/11/2018 Irreducible ventral hernia Medical Estab lished Patient with Vahid Angelita [facility] 12/11/2018 Obesity due to excess calories Medical E stablished Patient with Vahid Nagy [facility] 12/11/2018 Z68.32 - Body mass index (BM I) 32.0-32.9 adult Medical Established Patient with Vahid Nagy [facility] 12/11/2018 Body mass index Medical Established Patient with Vahid Angelita [facility] 10/30/2018 Assess dermatitis Medical Established Patient with Vahid Nagy [facility] 09/30/2018 Assess urinary tract infection Medical E stablished Patient with Vahid Angelita [facility] 09/30/2018 Body mass index Medical Established Patient with Vahid Angelita [facility] 08/27/2018 Obesity due to excess calories Medical E stablished Patient with Vahidchristiano Nagy [facility] 08/27/2018 F17.210 - Nicotine dependenc e, cigarettes, uncomplicated Established Patient with Zachernestina Grimaldo [facility] 07/28/2018 F34.1 - Dysthymic disorder Establishe d Patient with Zachernestina Grimaldo [facility] 07/28/2018 F41.1 - Generalized anxiety disorder Established Patient with Zach Grimaldo [facility] 07/28/2018 Assess diabetes mellitus Medical Establi shed Patient with Vahid Angelita [facility] 07/28/2018 Assess generalized anxiety disorder [facility] Established Patient with Vahid Angelita [facility] 07/28/2018 Assess lumbago Medical Established Patient with Vahid Angelita [facility] 07/28/2018 Assess perennial allergic rh initis with seasonal variation Medical Established Patient with Vahid Angelita [facility] 07/28/2018 Body mass index Medical Established Patient with Vahid Angelita [facility] 07/28/2018 Obesity due to excess calories Medical E stablished Patient with Vahid Angelita [facility] 07/28/2018 Assess tobacco abuse Medical Established Patient with Vahid Angelita [facility] 06/27/2018 Assessment of chronic lower back pain Me dical Established Patient with Vahid Angelita [facility] 06/27/2018 Obesity due to excess calories Medical E stablished Patient with Vahid Angelita [facility] 06/27/2018 Obesity due to excess calories Medical E stablished Patient with Vahid Angelita [facility] 05/30/2018 Diagnosis ASHD (arteriosclerotic heart disease) Coronary atherosclerosis of unspecified type of vessel, qawalangin or graft S/P angioplasty with stent Postsurgical percutaneous transluminal coronary angioplasty status Mixed hyperlipidemia Essential hypertension Unspecified essential hypertension Tobacco abuse counseling Counseling on substance use and abuse Abdominal aortic aneurysm (AAA) without rupture (HCC) PVD (peripheral vascular disease) (HCC) Peripheral vascular disease, unspecified Bilateral carotid artery disease, unspecified type (HCC) Lightheadedness Dizziness and giddiness Dizziness Dizziness and giddiness Findings Encounter Date Depressive disorder Telebehavioral He alth with Leah Short [facility] 09/15/2019 Generalized anxiety disorder [facility] Short [facility] 09/15/2019 Depressive disorder Telebehavioral He alth with Leah Short [facility] 08/26/2019 [facility] 08/26/2019 Z68.37 - Body mass index (BM I) 37.0-37.9 adult Medical Established Patient with Vahid Angelita [facility] 05/01/2019 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 Established Patient with Zach Grimaldo [facility] 04/14/2019 F41.1 - Generalized anxiety disorder Established Patient with Zach Grimaldo [facility] 04/14/2019 Obesity due to excess calories Medical E stablished Patient with Vahidchristiano Breweren [facility] 04/14/2019 Z68.36 - Body mass index (BM I) 36.0-36.9 adult Medical Established Patient with Vahid Angelita [facility] 04/14/2019 Obesity due to excess calories Medical E stablished Patient with Vahid Angelita [facility] 03/20/2019 Z68.36 - Body mass index (BM I) 36.0-36.9 adult Medical Established Patient with Vahid Nagy [facility] 03/20/2019 Acute atopic conjunctivitis [Acute atopic conjunctivitis left eye] Medical Established Patient with Elena Diazer [facility] 03/03/2019 Acute sinusitis Medical Established Patient with Elena Malik [facility] 03/03/2019 Body mass index [Body mass i ndex (BMI) 35.0-35.9 adult] Medical Established Patient with Elena Malik [facility] 03/03/2019 Generalized anxiety disorder Establis hed Patient with Zach Grimaldo [facility] 02/19/2019 Nicotine dependence Established Patie nt with Zach Girmaldo [facility] 02/19/2019 Persistent depressive disord er (dysthymia) Established Patient with Zach Grimaldo [facility] 02/19/2019 Body mass index Medical Established Patient with Vahid Nagy [facility] 02/19/2019 Generalized anxiety disorder Medical Est ablished Patient with Vahid Nagy [facility] 02/19/2019 Lumbago Medical Established Patient with Vahid Nagy [facility] 02/19/2019 Lumbar radiculopathy Medical Established Patient with Vahid Nagy [facility] 02/19/2019 Obesity due to excess calories Medical E stablished Patient with Vahid Nagy [facility] 02/19/2019 Body mass index Medical Established Patient with Vahid Nagy [facility] 01/22/2019 Obesity due to excess calories Medical E stablished Patient with Vahid Nagy [facility] 01/22/2019 Body mass index [Body mass i ndex (BMI) 35.0-35.9 adult] [facility] Diabetes Risk Test Score was three score 01/12/2019 [facility] Fagerstrom Score was 0 01/12/2019 Medica l [facility] Limb pain of shoulder region Medical [facility] Obesity due to excess calories Medical [facility] PHQ-9: total score was 18 01/12/2019 Med ical [facility] Assess bronchitis Medical Established Patient with Vahid Nagy [facility] 12/11/2018 Irreducible ventral hernia Medical Estab lished Patient with Vahid Nagy [facility] 12/11/2018 Obesity due to excess calories Medical E stablished Patient with Vahid Nagy [facility] 12/11/2018 Z68.32 - Body mass index (BM I) 32.0-32.9 adult Medical Established Patient with Vahid Nagy [facility] 12/11/2018 Body mass index Medical Established Patient with Vahid Nagy [facility] 10/30/2018 Assess dermatitis Medical Established Patient with Vahid Nagy [facility] 09/30/2018 Assess urinary tract infection Medical E stablished Patient with Vahid Nagy [facility] 09/30/2018 Body mass index Medical Established Patient with Vahid Nagy [facility] 08/27/2018 Obesity due to excess calories Medical E stablished Patient with Vahid Nagy [facility] 08/27/2018 F17.210 - Nicotine dependenc e, cigarettes, uncomplicated BH Established Patient with Zach Grimaldo [facility] 07/28/2018 F34.1 - Dysthymic disorder Establishe d Patient with Zach Grimaldo [facility] 07/28/2018 F41.1 - Generalized anxiety disorder BH Established Patient with Zach Grimaldo [facility] 07/28/2018 Assess diabetes mellitus Medical Establi shed Patient with Vahid Nagy [facility] 07/28/2018 Assess generalized anxiety disorder Medi иван Established Patient with Vahid Nagy [facility] 07/28/2018 Assess lumbago Medical Established Patient with Vahid Nagy [facility] 07/28/2018 Assess perennial allergic rh initis with seasonal variation Medical Established Patient with Vahid Angelita [facility] 07/28/2018 Body mass index Medical Established Patient with Vahid Angelita [facility] 07/28/2018 Obesity due to excess calories Medical E stablished Patient with Vahidchristiano Nagy [facility] 07/28/2018 Assess tobacco abuse Medical Established Patient with Vahid Nagy [facility] 06/27/2018 Assessment of chronic lower back pain Me dical Established Patient with Vahidchristiano Nagy [facility] 06/27/2018 Obesity due to excess calories Medical E stablished Patient with Vahid Angelita [facility] 06/27/2018 Obesity due to excess calories Medical E stablished Patient with Vahid Nagy [facility] 05/30/2018 Diagnosis ASHD (arteriosclerotic heart disease) Coronary atherosclerosis of unspecified type of vessel, qawalangin or graft S/P angioplasty with stent Postsurgical percutaneous transluminal coronary angioplasty status Mixed hyperlipidemia Essential hypertension Unspecified essential hypertension Tobacco abuse counseling Counseling on substance use and abuse Bilateral carotid artery disease, unspecified type (HCC) PVD (peripheral vascular disease) (HCC) Peripheral vascular disease, unspecified Abdominal aortic aneurysm (AAA) without rupture ([facility]) SOB (shortness of breath) Shortness of breath Diagnosis Chronic obstructive pulmonary disease with acute exacerbation (HCC) Obstructive chronic bronchitis with exacerbation Pneumonia due to organism Pneumonia due to other specified organism Cough Chronic bilateral low back pain with bilateral sciatica Diagnosis Opioid overdose, accidental or unintentional, initial encounter ([facility]) Pneumonia due to organism Pneumonia due to other specified organism Findings Encounter Date Depression Established Patie nt with Nitza Mark [facility] 10/21/2019 No depressive disorder Established Usha ac with Nitzashanita Mark [facility] 10/21/2019 F63.89 - Other impulse disor ders : Drug seeking behavior Medical Established Patient with Shawna Holliday [facility] 10/21/2019 Obesity due to excess calories Medical E stablished Patient with Shawna Holliday [employer] 10/21/2019 S76.211D - Strain of adducto r muscle, fascia and tendon of right thigh, subsequent encounter Medical Established Patient with Shawna Holliday [employer] 10/21/2019 Z68.35 - Body mass index (BM I) 35.0-35.9, adult Medical Established Patient with Shawna Holliday [employer] 10/21/2019 Depressive disorder Established Patie nt with Leah Short [facility] 09/24/2019 Generalized anxiety disorder Establis hed Patient with Leah Short [facility] 09/24/2019 M54.5 - Low back pain Medical Establishe d Patient with Shawna Holliday [employer] 09/24/2019 Obesity due to excess calories Medical E stablished Patient with Shawna Holliday [employer] 09/24/2019 Z68.25 - Body mass index (BM I) 25.0-25.9, adult Medical Established Patient with Shawna Holliday [employer] 09/24/2019 Depressive disorder Telebehavioral He alth with Leah Short [facility] 09/15/2019 Generalized anxiety disorder [facility] Leah Short [facility] 09/15/2019 Depressive disorder Telebehavioral He alth with Leah Short [facility] 08/26/2019 Generalized anxiety disorder [facility] Leah Short [facility] 08/26/2019 Z68.37 - Body mass index (BM I) 37.0-37.9 adult Medical Established Patient with Vahid Nagy [facility] 05/01/2019 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 Established Patient with Zach Grimaldo [facility] 04/14/2019 F41.1 - Generalized anxiety disorder Established Patient with Zach Grimaldo [facility] 04/14/2019 Obesity due to excess calories Medical E stablished Patient with Vahid Angelita [facility] 04/14/2019 Z68.36 - Body mass index (BM I) 36.0-36.9 adult Medical Established Patient with Vahid Angelita [facility] 04/14/2019 Obesity due to excess calories Medical E stablished Patient with Vahid Angelita [facility] 03/20/2019 Z68.36 - Body mass index (BM I) 36.0-36.9 adult Medical Established Patient with Vahid Breweren [facility] 03/20/2019 Acute atopic conjunctivitis [Acute atopic conjunctivitis left eye] Medical Established Patient with Elena King [facility] 03/03/2019 Acute sinusitis Medical Established Patient with Elena King [facility] 03/03/2019 Body mass index [Body mass i ndex (BMI) 35.0-35.9 adult] Medical Established Patient with Elena King [facility] 03/03/2019 Generalized anxiety disorder BH Establis hed Patient with Zach Grimaldo [facility] 02/19/2019 Nicotine dependence Established Patie nt with Zach Grimaldo [facility] 02/19/2019 Persistent depressive disord er (dysthymia) BH Established Patient with Zach Grimaldo [facility] 02/19/2019 Body mass index Medical Established Patient with Vahid Breweren [facility] 02/19/2019 Generalized anxiety disorder Medical Est ablished Patient with Vahid Angelita [facility] 02/19/2019 Lumbago Medical Established Patient with Vahid Angelita [facility] 02/19/2019 Lumbar radiculopathy Medical Established Patient with Vahidchristiano Breweren [facility] 02/19/2019 Obesity due to excess calories Medical E stablished Patient with Vahidchristiano Breweren [facility] 02/19/2019 Body mass index Medical Established Patient with Vahid Breweren [facility] 01/22/2019 Obesity due to excess calories Medical E stablished Patient with Vahidchristiano Breweren [facility] 01/22/2019 Body mass index [Body mass i ndex (BMI) 35.0-35.9 adult] Medical Established Patient with Elena King [facility] 01/12/2019 Diabetes Risk Test Score was three score 01/12/2019 Medical Established Patient with Elena King [facility] 01/12/2019 Fagerstrom Score was 0 01/12/2019 Medica l Established Patient with Elena King [facility] 01/12/2019 Limb pain of shoulder region Medical Est ablished Patient with Elena King [facility] 01/12/2019 Obesity due to excess calories Medical E stablished Patient with Elena King [facility] 01/12/2019 PHQ-9: total score was 18 01/12/2019 Med ical Established Patient with Elena King [facility] 01/12/2019 Assess bronchitis Medical Established Patient with Vahid Angelita [facility] 12/11/2018 Irreducible ventral hernia Medical Estab lished Patient with Vahid Angelita [facility] 12/11/2018 Obesity due to excess calories Medical E stablished Patient with Vahid Angelita [facility] 12/11/2018 Z68.32 - Body mass index (BM I) 32.0-32.9 adult Medical Established Patient with Vahid Nagy [facility] 12/11/2018 Body mass index Medical Established Patient with Vahid Nagy [facility] 10/30/2018 Assess dermatitis Medical Established Patient with Vahid Nagy [facility] 09/30/2018 Assess urinary tract infection Medical E stablished Patient with Vahid Nagy [facility] 09/30/2018 Body mass index Medical Established Patient with Vahid Nagy [facility] 08/27/2018 Obesity due to excess calories Medical E stablished Patient with Vahid Nagy [facility] 08/27/2018 F17.210 - Nicotine dependenc e, cigarettes, uncomplicated BH Established Patient with Zach Grimaldo [facility] 07/28/2018 F34.1 - Dysthymic disorder Establishe d Patient with Zach Grimaldo [facility] 07/28/2018 F41.1 - Generalized anxiety disorder Established Patient with Zach Grimaldo [facility] 07/28/2018 Assess diabetes mellitus Medical Establi shed Patient with Vahid Nagy [facility] 07/28/2018 Assess generalized anxiety disorder [facility] Established Patient with Vahidchristiano Nagy [facility] 07/28/2018 Assess lumbago Medical Established Patient with Vahidchristiano Nagy [facility] 07/28/2018 Assess perennial allergic rh initis with seasonal variation Medical Established Patient with Vahid Nagy [facility] 07/28/2018 Body mass index Medical Established Patient with Vahid Nagy [facility] 07/28/2018 Obesity due to excess calories Medical E stablished Patient with Vahid Nagy [facility] 07/28/2018 Assess tobacco abuse Medical Established Patient with Vahidchristiano Nagy [facility] 06/27/2018 Assessment of chronic lower back pain Me dical Established Patient with Vahidchristiano Nagy [facility] 06/27/2018 Obesity due to excess calories Medical E stablished Patient with Vahid Angelita [facility] 06/27/2018 Obesity due to excess calories Medical E stablished Patient with Vahid Nagy [facility] 05/30/2018 Diagnosis Groin strain, right, initial encounter Findings Encounter Date Depressive disorder Established Patie nt with Nitza Mark [facility] 10/21/2019 F63.89 - Other impulse disor ders : Drug seeking behavior Medical Established Patient with Shawna Hele [facility] 10/21/2019 Obesity due to excess calories Medical E stablished Patient with Shawna Hele [facility] 10/21/2019 S76.211D - Strain of adducto r muscle, fascia and tendon of right thigh, subsequent encounter Medical Established Patient with Shawna Holliday [facility] 10/21/2019 Z68.35 - Body mass index (BM I) 35.0-35.9, adult Medical Established Patient with Shawna Holliday [employer] 10/21/2019 Depressive disorder Established Patie nt with Leah Short [facility] 09/24/2019 Generalized anxiety disorder Establis hed Patient with Leah Short [facility] 09/24/2019 M54.5 - Low back pain Medical Establishe d Patient with Shawna Holliday [employer] 09/24/2019 Obesity due to excess calories Medical E stablished Patient with Shawnaariana Hele [employer] 09/24/2019 Z68.25 - Body mass index (BM I) 25.0-25.9, adult Medical Established Patient with Shawna Holliday [employer] 09/24/2019 Depressive disorder Telebehavioral He alth with Leah Short [facility] 09/15/2019 Generalized anxiety disorder [facility] with Leah Short [facility] 09/15/2019 Depressive disorder Telebehavioral He alth with Leah Short [facility] 08/26/2019 Generalized anxiety disorder [facility] with Leah Short [facility] 08/26/2019 Z68.37 - Body mass index (BM I) 37.0-37.9 adult Medical Established Patient with Vahid Breweren [facility] 05/01/2019 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 Established Patient with Zach Grimaldo [facility] 04/14/2019 F41.1 - Generalized anxiety disorder Established Patient with Zach Grimaldo [facility] 04/14/2019 Obesity due to excess calories Medical E stablished Patient with Vahid Angelita [facility] 04/14/2019 Z68.36 - Body mass index (BM I) 36.0-36.9 adult Medical Established Patient with Vahid Angelita [facility] 04/14/2019 Obesity due to excess calories Medical E stablished Patient with Vahid Angelita [facility] 03/20/2019 Z68.36 - Body mass index (BM I) 36.0-36.9 adult Medical Established Patient with Vahid Angelita [employer] 03/20/2019 Acute atopic conjunctivitis [Acute atopic conjunctivitis left eye] Medical Established Patient with Elena King [employer] 03/03/2019 Acute sinusitis Medical Established Patient with Elena King [employer] 03/03/2019 Body mass index [Body mass i ndex (BMI) 35.0-35.9 adult] Medical Established Patient with Elena King [facility] 03/03/2019 Generalized anxiety disorder BH Establis hed Patient with Zach Grimaldo [facility] 02/19/2019 Nicotine dependence BH Established Patie nt with Zach Grimaldo [facility] 02/19/2019 Persistent depressive disord er (dysthymia) BH Established Patient with Zach Grimaldo [facility] 02/19/2019 Body mass index Medical Established Patient with Vahid Nagy [facility] 02/19/2019 Generalized anxiety disorder Medical Est ablished Patient with Vahidchristiano Breweren [facility] 02/19/2019 Lumbago Medical Established Patient with Vahidchristiano Breweren [facility] 02/19/2019 Lumbar radiculopathy Medical Established Patient with Vahidchristiano Nagy [facility] 02/19/2019 Obesity due to excess calories Medical E stablished Patient with Vahidchristiano Breweren [facility] 02/19/2019 Body mass index Medical Established Patient with Vahid Nagy [facility] 01/22/2019 Obesity due to excess calories Medical E stablished Patient with Vahid Nagy [facility] 01/22/2019 Body mass index [Body mass i ndex (BMI) 35.0-35.9 adult] Medical Established Patient with Elena King [facility] 01/12/2019 Diabetes Risk Test Score was three score 01/12/2019 Medical Established Patient with Elena King [facility] 01/12/2019 Fagerstrom Score was 0 01/12/2019 Medica l Established Patient with Elena King [facility] 01/12/2019 Limb pain of shoulder region Medical Est ablished Patient with Elena King [facility] 01/12/2019 Obesity due to excess calories Medical E stablished Patient with Elena King [facility] 01/12/2019 PHQ-9: total score was 18 01/12/2019 Med ical Established Patient with Elena King [facility] 01/12/2019 Assess bronchitis Medical Established Patient with Vahid Nagy [facility] 12/11/2018 Irreducible ventral hernia Medical Estab lished Patient with Vahid Nagy [facility] 12/11/2018 Obesity due to excess calories Medical E stablished Patient with Vahidchristiano Nagy [facility] 12/11/2018 Z68.32 - Body mass index (BM I) 32.0-32.9 adult Medical Established Patient with Vahid Nagy [facility] 12/11/2018 Body mass index Medical Established Patient with Vahid Angelita [facility] 10/30/2018 Assess dermatitis Medical Established Patient with Vahid Angelita [facility] 09/30/2018 Assess urinary tract infection Medical E stablished Patient with Vahid Nagy [facility] 09/30/2018 Body mass index Medical Established Patient with Vahid Nagy [facility] 08/27/2018 Obesity due to excess calories Medical E stablished Patient with Vahid Nagy [facility] 08/27/2018 F17.210 - Nicotine dependenc e, cigarettes, uncomplicated BH Established Patient with Zach Grimaldo [facility] 07/28/2018 F34.1 - Dysthymic disorder Establishe d Patient with Zach Grimaldo [facility] 07/28/2018 F41.1 - Generalized anxiety disorder Established Patient with Zach Grimaldo [facility] 07/28/2018 Assess diabetes mellitus Medical Establi shed Patient with Vahid Nagy [facility] 07/28/2018 Assess generalized anxiety disorder [facility] иван Established Patient with Vahid Nagy [facility] 07/28/2018 Assess lumbago Medical Established Patient with Vahidchristiano Nagy [facility] 07/28/2018 Assess perennial allergic rh initis with seasonal variation Medical Established Patient with Vahid Nagy [facility] 07/28/2018 Body mass index Medical Established Patient with Vahid Nagy [facility] 07/28/2018 Obesity due to excess calories Medical E stablished Patient with Vahid Nagy [facility] 07/28/2018 Assess tobacco abuse Medical Established Patient with Vahid Nagy [facility] 06/27/2018 Assessment of chronic lower back pain Me dical Established Patient with Vahid Nagy [facility] 06/27/2018 Obesity due to excess calories Medical E stablished Patient with Vahid Nagy [facility] 06/27/2018 Obesity due to excess calories Medical E stablished Patient with Vahid Nagy [facility] 05/30/2018 Findings Encounter Date Obesity due to excess calories Medical E stablished Patient with Vahid Nagy [facility] 11/16/2019 Z68.34 - Body mass index (BM I) 34.0-34.9, adult Medical Established Patient with Vahid Nagy [facility] 11/16/2019 Depressive disorder Established Patie nt with Nitza Mark [facility] 10/21/2019 F63.89 - Other impulse disor ders : Drug seeking behavior Medical Established Patient with Shawna Hele [facility] 10/21/2019 Obesity due to excess calories Medical E stablished Patient with Shawna Mg [facility] 10/21/2019 S76.211D - Strain of adducto r muscle, fascia and tendon of right thigh, subsequent encounter Medical Established Patient with Shawna Holliday [facility] 10/21/2019 Z68.35 - Body mass index (BM I) 35.0-35.9, adult Medical Established Patient with Shawna Holliday [employer] 10/21/2019 Depressive disorder Established Patie nt with Leah Short [facility] 09/24/2019 Generalized anxiety disorder Establis hed Patient with Leah Short [facility] 09/24/2019 M54.5 - Low back pain Medical Establishe d Patient with Shawna Holliday [employer] 09/24/2019 Obesity due to excess calories Medical E stablished Patient with Shawna Holliday [employer] 09/24/2019 Z68.25 - Body mass index (BM I) 25.0-25.9, adult Medical Established Patient with Shawna Holliday [employer] 09/24/2019 Depressive disorder Telebehavioral He alth with Leah Short [facility] 09/15/2019 Generalized anxiety disorder Telebeha v[facility]al Health with Leah Short [facility] 09/15/2019 Depressive disorder Telebehavioral He alth with Leah Short [facility] 08/26/2019 Generalized anxiety disorder Telebeha vioral Health with Leah Short [facility] 08/26/2019 Z68.37 - Body mass index (BM I) 37.0-37.9 adult Medical Established Patient with Vahidchristiano Breweren [facility] 05/01/2019 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 Established Patient with Zach Grimaldo [facility] 04/14/2019 F41.1 - Generalized anxiety disorder Established Patient with Zachernestina Grimaldo [facility] 04/14/2019 Obesity due to excess calories Medical E stablished Patient with Vahid Angelita [facility] 04/14/2019 Z68.36 - Body mass index (BM I) 36.0-36.9 adult Medical Established Patient with Vahid Angelita [employer] 04/14/2019 Obesity due to excess calories Medical E stablished Patient with Vahid Angelita [employer] 03/20/2019 Z68.36 - Body mass index (BM I) 36.0-36.9 adult Medical Established Patient with Vahid Angelita [employer] 03/20/2019 Acute atopic conjunctivitis [Acute atopic conjunctivitis left eye] Medical Established Patient with Elena King [employer] 03/03/2019 Acute sinusitis Medical Established Patient with Elena King [employer] 03/03/2019 Body mass index [Body mass i ndex (BMI) 35.0-35.9 adult] Medical Established Patient with Elena King [facility] 03/03/2019 Generalized anxiety disorder BH Establis hed Patient with Zach Grimaldo [facility] 02/19/2019 Nicotine dependence BH Established Patie nt with Zach Grimaldo [facility] 02/19/2019 Persistent depressive disord er (dysthymia) BH Established Patient with Zahc Grimaldo [facility] 02/19/2019 Body mass index Medical Established Patient with Vahid Breweren [facility] 02/19/2019 Generalized anxiety disorder Medical Est ablished Patient with Vahid Angelita [facility] 02/19/2019 Lumbago Medical Established Patient with Vahidchristiano Breweren [facility] 02/19/2019 Lumbar radiculopathy Medical Established Patient with Vahidchristiano Breweren [facility] 02/19/2019 Obesity due to excess calories Medical E stablished Patient with Vahidchristiano Breweren [facility] 02/19/2019 Body mass index Medical Established Patient with Vahid Nagy [facility] 01/22/2019 Obesity due to excess calories Medical E stablished Patient with Vahid Breweren [facility] 01/22/2019 Body mass index [Body mass i ndex (BMI) 35.0-35.9 adult] Medical Established Patient with Elena King [facility] 01/12/2019 Diabetes Risk Test Score was three score 01/12/2019 Medical Established Patient with Elena King [facility] 01/12/2019 Fagerstrom Score was 0 01/12/2019 Medica l Established Patient with Elena King [facility] 01/12/2019 Limb pain of shoulder region Medical Est ablished Patient with Elena King [facility] 01/12/2019 Obesity due to excess calories Medical E stablished Patient with Elena King [facility] 01/12/2019 PHQ-9: total score was 18 01/12/2019 Med ical Established Patient with Elena King [facility] 01/12/2019 Assess bronchitis Medical Established Patient with Vahid Breweren [facility] 12/11/2018 Irreducible ventral hernia Medical Estab lished Patient with Vahid Angelita [facility] 12/11/2018 Obesity due to excess calories Medical E stablished Patient with Vahidchristiano Breweren [facility] 12/11/2018 Z68.32 - Body mass index (BM I) 32.0-32.9 adult Medical Established Patient with Vahid Angelita [facility] 12/11/2018 Body mass index Medical Established Patient with Vahid Angelita [facility] 10/30/2018 Assess dermatitis Medical Established Patient with Vahid Angelita [facility] 09/30/2018 Assess urinary tract infection Medical E stablished Patient with Vahid Nagy [facility] 09/30/2018 Body mass index Medical Established Patient with Vahid Nagy [facility] 08/27/2018 Obesity due to excess calories Medical E stablished Patient with Vahid Nagy [facility] 08/27/2018 F17.210 - Nicotine dependenc e, cigarettes, uncomplicated Established Patient with Zach Grimaldo [facility] 07/28/2018 F34.1 - Dysthymic disorder Establishe d Patient with Zach Grimaldo [facility] 07/28/2018 F41.1 - Generalized anxiety disorder Established Patient with Zach Grimaldo [facility] 07/28/2018 Assess diabetes mellitus Medical Establi shed Patient with Vahid Nagy [facility] 07/28/2018 Assess generalized anxiety disorder [facility] Established Patient with Vahid Nagy [facility] 07/28/2018 Assess lumbago Medical Established Patient with Vahid Nagy [facility] 07/28/2018 Assess perennial allergic rh initis with seasonal variation Medical Established Patient with Vahid Nagy [facility] 07/28/2018 Body mass index Medical Established Patient with Vahid Nagy [facility] 07/28/2018 Obesity due to excess calories Medical E stablished Patient with Vahid Nagy [facility] 07/28/2018 Assess tobacco abuse Medical Established Patient with Vahid Nagy [facility] 06/27/2018 Assessment of chronic lower back pain Me dical Established Patient with Vahid Nagy [facility] 06/27/2018 Obesity due to excess calories Medical E stablished Patient with Vahid Nagy [facility] 06/27/2018 Obesity due to excess calories Medical E stablished Patient with Vahid Nagy [facility] 05/30/2018 Findings Encounter Date Depression Established Patie nt with Leah Arroyo [facility] 01/28/2020 Generalized anxiety disorder Establis hed Patient with Leah Short [facility] 01/28/2020 Obesity due to excess calories Medical E stablished Patient with Vahid Nagy [facility] 01/28/2020 Z68.33 - Body mass index [BM I] 33.0-33.9, adult Medical Established Patient with Vahid Nagy [facility] 01/28/2020 Obesity due to excess calories Medical E stablished Patient with Vahidchristiano Nagy [facility] 11/16/2019 Z68.34 - Body mass index (BM I) 34.0-34.9, adult Medical Established Patient with Vahid Nagy [facility] 11/16/2019 Depressive disorder Established Patie nt with Nitza Mark [facility] 10/21/2019 F63.89 - Other impulse disor ders : Drug seeking behavior Medical Established Patient with Shawna Holliday [employer] 10/21/2019 Obesity due to excess calories Medical E stablished Patient with Shawna Holliday [employer] 10/21/2019 S76.211D - Strain of adducto r muscle, fascia and tendon of right thigh, subsequent encounter Medical Established Patient with Shawna Holliday [employer] 10/21/2019 Z68.35 - Body mass index (BM I) 35.0-35.9, adult Medical Established Patient with Shawna Holliday [employer] 10/21/2019 Depressive disorder Established Patie nt with Leah Short [facility] 09/24/2019 Generalized anxiety disorder Establis hed Patient with Leah Short [facility] 09/24/2019 M54.5 - Low back pain Medical Establishe d Patient with Shawna Holliday [employer] 09/24/2019 Obesity due to excess calories Medical E stablished Patient with Shawna Holliday [employer] 09/24/2019 Z68.25 - Body mass index (BM I) 25.0-25.9, adult Medical Established Patient with Shawna Holliday [employer] 09/24/2019 Depressive disorder Telebehavioral He alth with Leah Short [facility] 09/15/2019 Generalized anxiety disorder Telebeha v[facility]al Health with Leah Short [facility] 09/15/2019 Depressive disorder Telebehavioral He alth with Leah Short [facility] 08/26/2019 Generalized anxiety disorder Telebeha vioral Health with Leah Short [facility] 08/26/2019 Z68.37 - Body mass index (BM I) 37.0-37.9 adult Medical Established Patient with Vahidchristiano Breweren [facility] 05/01/2019 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 Established Patient with Zach Grimaldo [facility] 04/14/2019 F41.1 - Generalized anxiety disorder Established Patient with Zach Grimaldo [facility] 04/14/2019 Obesity due to excess calories Medical E stablished Patient with Vahid Angelita [employer] 04/14/2019 Z68.36 - Body mass index (BM I) 36.0-36.9 adult Medical Established Patient with Vahid Angelita [employer] 04/14/2019 Obesity due to excess calories Medical E stablished Patient with Vahid Angelita [facility] 03/20/2019 Z68.36 - Body mass index (BM I) 36.0-36.9 adult Medical Established Patient with Vahid Nagy [facility] 03/20/2019 Acute atopic conjunctivitis [Acute atopic conjunctivitis left eye] Medical Established Patient with Elena Diazer [facility] 03/03/2019 Acute sinusitis Medical Established Patient with Elena Diazer [facility] 03/03/2019 Body mass index [Body mass i ndex (BMI) 35.0-35.9 adult] Medical Established Patient with Elena King [facility] 03/03/2019 Generalized anxiety disorder Establis hed Patient with Zachernestina Grimaldo [facility] 02/19/2019 Nicotine dependence Established Patie nt with Zach Grimaldo [facility] 02/19/2019 Persistent depressive disord er (dysthymia) Established Patient with Zach Grimaldo [facility] 02/19/2019 Body mass index Medical Established Patient with Vahid Nagy [facility] 02/19/2019 Generalized anxiety disorder Medical Est ablished Patient with Vahid Angelita [facility] 02/19/2019 Lumbago Medical Established Patient with Vahid Angelita [facility] 02/19/2019 Lumbar radiculopathy Medical Established Patient with Vahid Breweren [facility] 02/19/2019 Obesity due to excess calories Medical E stablished Patient with Vahid Breweren [facility] 02/19/2019 Body mass index Medical Established Patient with Vahid Nagy [facility] 01/22/2019 Obesity due to excess calories Medical E stablished Patient with Vahid Nagy [facility] 01/22/2019 Body mass index [Body mass i ndex (BMI) 35.0-35.9 adult] Medical Established Patient with Elena Diazer [facility] 01/12/2019 Diabetes Risk Test Score was three score 01/12/2019 Medical Established Patient with Elena Diazer [facility] 01/12/2019 Fagerstrom Score was 0 01/12/2019 Medica l Established Patient with Elena Diazer [facility] 01/12/2019 Limb pain of shoulder region Medical Est ablished Patient with Elena Diazer [facility] 01/12/2019 Obesity due to excess calories Medical E stablished Patient with Elena King [facility] 01/12/2019 PHQ-9: total score was 18 01/12/2019 Med ical Established Patient with Elena King [facility] 01/12/2019 Assess bronchitis Medical Established Patient with Vahid Angelita [facility] 12/11/2018 Irreducible ventral hernia Medical Estab lished Patient with Vahid [facility] 12/11/2018 Obesity due to excess calories Medical E stablished Patient with Vahid [facility] 12/11/2018 Z68.32 - Body mass index (BM I) 32.0-32.9 adult Medical Established Patient with Vahid [facility] 12/11/2018 Body mass index Medical [facility] Assess dermatitis Medical [facility] Assess urinary tract infection Medical E stablished [facility] Body mass index Medical Established Patient with Vahid [facility] 08/27/2018 Obesity due to excess calories Medical E stablished Patient with Vahid [facility] 08/27/2018 F17.210 - Nicotine dependenc e, cigarettes, uncomplicated Established Patient with Zach Grimaldo [facility] 07/28/2018 F34.1 - Dysthymic disorder Establishe d Patient with Zach Grimaldo [facility] 07/28/2018 F41.1 - Generalized anxiety disorder Established Patient with Zach Grimaldo [facility] 07/28/2018 Assess diabetes mellitus Medical Establi shed [facility] Assess generalized anxiety disorder [facility] иван Established [facility]/2018 Assess lumbago Medical Established Patient with Vahid [facility] 07/28/2018 Assess perennial allergic rh initis with seasonal variation Medical Established Patient with Vahid [facility] 07/28/2018 Body mass index Medical Established Patient with Vahid [facility] 07/28/2018 Obesity due to excess calories Medical E stablished Patient with Vahid [facility] 07/28/2018 Assess tobacco abuse Medical Established [facility] Assessment of chronic lower back pain Me dical Established [facility] Obesity due to excess calories Medical E stablished Patient with Vahid [facility] 06/27/2018 Obesity due to excess calories Medical E stablished [facility] Diagnosis Osteoarthritis, unspecified osteoarthritis type, unspecified site Avascular necrosis (HCC) Aseptic necrosis of bone, site unspecified Urinary tract infection without hematuria, site unspecified Diagnosis Congestive heart failure, unspecified HF chronicity, unspecified heart failure type (HCC)- Primary Bronchitis Bronchitis, not specified as acute or chronic COPD exacerbation (HCC) Obstructive chronic bronchitis with exacerbation Diagnosis Unstable angina (HCC)- Primary Intermediate coronary syndrome Chest pain, unspecified type Acute coronary syndrome (HCC) Intermediate coronary syndrome Tobacco abuse counseling Counseling on substance use and abuse Hypertension Unspecified essential hypertension Hypothyroidism Unspecified hypothyroidism Diagnosis S/P cardiac cath Other postprocedural status S/P angioplasty with stent Postsurgical percutaneous transluminal coronary angioplasty status Diagnosis Sacroiliac joint pain- Primary Disorders of sacrum Findings Encounter Date Depression Established Patie nt with Leah Short [facility] 04/12/2020 Generalized anxiety disorder Establis hed Patient with Leah Short [facility] 04/12/2020 Obesity due to excess calories Medical E stablished Patient with Vahid Angelita [facility] 04/12/2020 Z68.33 - Body mass index [BM I] 33.0-33.9, adult Medical Established Patient with Vahidchristiano Breweren [employer] 04/12/2020 Depression Established Patie nt with Leah Short [facility] 01/28/2020 Generalized anxiety disorder Establis hed Patient with Leah Short [facility] 01/28/2020 Obesity due to excess calories Medical E stablished Patient with Vahid Angelita [facility] 01/28/2020 Z68.33 - Body mass index [BM I] 33.0-33.9, adult Medical Established Patient with Vahid Angelita [facility] 01/28/2020 Obesity due to excess calories Medical E stablished Patient with Vahid Angelita [facility] 11/16/2019 Z68.34 - Body mass index (BM I) 34.0-34.9, adult Medical Established Patient with Vahidchristiano Nagy [facility] 11/16/2019 Depressive disorder Established Patie nt with Nitza Mark [facility] 10/21/2019 F63.89 - Other impulse disor ders : Drug seeking behavior Medical Established Patient with Shawna Holliday [facility] 10/21/2019 Obesity due to excess calories Medical E stablished Patient with Shawna Mg [facility] 10/21/2019 S76.211D - Strain of adducto r muscle, fascia and tendon of right thigh, subsequent encounter Medical Established Patient with Shawna Holliday [facility] 10/21/2019 Z68.35 - Body mass index (BM I) 35.0-35.9, adult Medical Established Patient with Shawna Hele [facility] 10/21/2019 Depressive disorder Established Patie nt with Leah Short [facility] 09/24/2019 Generalized anxiety disorder Establis hed Patient with Leah Short [facility] 09/24/2019 M54.5 - Low back pain Medical Establishe d Patient with Shawna Holliday [employer] 09/24/2019 Obesity due to excess calories Medical E stablished Patient with Shawna Holliday [employer] 09/24/2019 Z68.25 - Body mass index (BM I) 25.0-25.9, adult Medical Established Patient with Shawna Holliday [employer] 09/24/2019 Depressive disorder Telebehavioral He alth with Leah Short [facility] 09/15/2019 Generalized anxiety disorder Telebeha vioral Health with Leah Short [facility] 09/15/2019 Depressive disorder Telebehavioral He alth with Leah Short [facility] 08/26/2019 Generalized anxiety disorder [facility] with Leah Short [facility] 08/26/2019 Z68.37 - Body mass index (BM I) 37.0-37.9 adult Medical Established Patient with Vahid Angelita [facility] 05/01/2019 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 Established Patient with Zach Grimaldo [facility] 04/14/2019 F41.1 - Generalized anxiety disorder Established Patient with Zach Grimaldo [facility] 04/14/2019 Obesity due to excess calories Medical E stablished Patient with Vahid Angelita [facility] 04/14/2019 Z68.36 - Body mass index (BM I) 36.0-36.9 adult Medical Established Patient with Vahid Angelita [facility] 04/14/2019 Obesity due to excess calories Medical E stablished Patient with Vahid Angelita [facility] 03/20/2019 Z68.36 - Body mass index (BM I) 36.0-36.9 adult Medical Established Patient with Vahid Angelita [facility] 03/20/2019 Acute atopic conjunctivitis [Acute atopic conjunctivitis left eye] Medical Established Patient with Elena King [facility] 03/03/2019 Acute sinusitis Medical Established Patient with Elena King [facility] 03/03/2019 Body mass index [Body mass i ndex (BMI) 35.0-35.9 adult] Medical Established Patient with Elena King [facility] 03/03/2019 Generalized anxiety disorder Establis hed Patient with Zach Grimaldo [facility] 02/19/2019 Nicotine dependence Established Patie nt with Zachernestina Grimaldo [facility] 02/19/2019 Persistent depressive disord er (dysthymia) Established Patient with Zach Dillan [facility] 02/19/2019 Body mass index Medical Established Patient with Vahid Nagy [facility] 02/19/2019 Generalized anxiety disorder Medical Est ablished Patient with Vahid Nagy [facility] 02/19/2019 Lumbago Medical Established Patient with Vahdi Nagy [facility] 02/19/2019 Lumbar radiculopathy Medical Established Patient with Vahid Nagy [facility] 02/19/2019 Obesity due to excess calories Medical E stablished Patient with Vahid Nagy [facility] 02/19/2019 Body mass index Medical Established Patient with Vahid Nagy [facility] 01/22/2019 Obesity due to excess calories Medical E stablished Patient with Vahid Nagy [facility] 01/22/2019 Body mass index [Body mass i ndex (BMI) 35.0-35.9 adult] Medical Established Patient with Elena Malik [facility] 01/12/2019 Diabetes Risk Test Score was three score 01/12/2019 Medical Established Patient with Elena Diazer [facility] 01/12/2019 Fagerstrom Score was 0 01/12/2019 Medica l Established Patient with Elena Diazer [facility] 01/12/2019 Limb pain of shoulder region Medical Est ablished Patient with Elena Diazer [facility] 01/12/2019 Obesity due to excess calories Medical E stablished Patient with Elena King [facility] 01/12/2019 PHQ-9: total score was 18 01/12/2019 Med ical Established Patient with Elena Malik [facility] 01/12/2019 Assess bronchitis Medical Established Patient with Vahid Breweren [facility] 12/11/2018 Irreducible ventral hernia Medical Estab lished Patient with Vahid Nagy [facility] 12/11/2018 Obesity due to excess calories Medical E stablished Patient with Vahid Nagy [facility] 12/11/2018 Z68.32 - Body mass index (BM I) 32.0-32.9 adult Medical Established Patient with Vahid Angelita [facility] 12/11/2018 Body mass index Medical Established Patient with Vahid Angelita [facility] 10/30/2018 Assess dermatitis Medical Established Patient with Vahid Angelita [facility] 09/30/2018 Assess urinary tract infection Medical E stablished Patient with Vahid Angelita [facility] 09/30/2018 Body mass index Medical Established Patient with Vahid Angelita [facility] 08/27/2018 Obesity due to excess calories Medical E stablished Patient with Vahid Nagy [facility] 08/27/2018 F17.210 - Nicotine dependenc e, cigarettes, uncomplicated Established Patient with Zach Grimaldo [facility] 07/28/2018 F34.1 - Dysthymic disorder Establishe d Patient with Zach Grimaldo [facility] 07/28/2018 F41.1 - Generalized anxiety disorder Established Patient with Zach Grimaldo [facility] 07/28/2018 Assess diabetes mellitus Medical Establi shed Patient with Vahid Nagy [facility] 07/28/2018 Assess generalized anxiety disorder [facility] Established Patient with Vahid Nagy [facility] 07/28/2018 Assess lumbago Medical Established Patient with Vahid Nagy [facility] 07/28/2018 Assess perennial allergic rh initis with seasonal variation Medical Established Patient with Vahid Nagy [facility] 07/28/2018 Body mass index Medical Established Patient with Vahid Nagy [facility] 07/28/2018 Obesity due to excess calories Medical E stablished Patient with Vahid Nagy [facility] 07/28/2018 Assess tobacco abuse Medical Established Patient with Vahid Nagy [facility] 06/27/2018 Assessment of chronic lower back pain Me dical Established Patient with Vahid Nagy [facility] 06/27/2018 Obesity due to excess calories Medical E stablished Patient with Vahid Nagy [facility] 06/27/2018 Obesity due to excess calories Medical E stablished Patient with Vahid Nagy [facility] 05/30/2018 Diagnosis Acute right-sided low back pain without sciatica- Primary Findings Encounter Date Body mass index Medical Established Patient with Vahid Nagy [facility] 10/30/2018 Assess dermatitis Medical Established Patient with Vahid Nagy [facility] 09/30/2018 Assess urinary tract infection Medical E stablished Patient with Vahid Nagy [facility] 09/30/2018 Body mass index Medical Established Patient with Vahid Nagy [facility] 08/27/2018 Obesity due to excess calories Medical E stablished Patient with Vahid Nagy [facility] 08/27/2018 F17.210 - Nicotine dependenc e, cigarettes, uncomplicated Established Patient with Zach Grimaldo [facility] 07/28/2018 F34.1 - Dysthymic disorder Establishe d Patient with Zach Grimaldo [facility] 07/28/2018 F41.1 - Generalized anxiety disorder Established Patient with Zach Grimaldo [facility] 07/28/2018 Assess diabetes mellitus Medical Establi shed Patient with Vahid Nagy [facility] 07/28/2018 Assess generalized anxiety disorder Medi иван Established Patient with Vahid Nagy [facility] 07/28/2018 Assess lumbago Medical Established Patient with Vahid Nagy [facility] 07/28/2018 Assess perennial allergic rh initis with seasonal variation Medical Established Patient with Vahid Nagy [facility] 07/28/2018 Body mass index Medical Established Patient with Vahid Nagy [facility] 07/28/2018 Obesity due to excess calories Medical E stablished Patient with Vahid Nagy [facility] 07/28/2018 Assess tobacco abuse Medical Established Patient with Vahid Nagy [facility] 06/27/2018 Assessment of chronic lower back pain Me dical Established Patient with Vahid Nagy [facility] 06/27/2018 Obesity due to excess calories Medical E stablished Patient with Vahid Nagy [facility] 06/27/2018 Obesity due to excess calories Medical E stablished Patient with Vahid Nagy [facility] 05/30/2018 Findings Encounter Date Generalized anxiety disorder Establis hed Patient with Zach Grimaldo [facility] 02/19/2019 Nicotine dependence Established Patie nt with Zach Grimaldo [facility] 02/19/2019 Persistent depressive disord er (dysthymia) Established Patient with Zach Grimaldo [facility] 02/19/2019 Body mass index Medical Established Patient with Vahid Nagy [facility] 02/19/2019 Generalized anxiety disorder Medical Est ablished Patient with Vahid Nagy [facility] 02/19/2019 Lumbago Medical Established Patient with Vahid Nagy [facility] 02/19/2019 Lumbar radiculopathy Medical Established Patient with Vahid Nagy [facility] 02/19/2019 Obesity due to excess calories Medical E stablished Patient with Vahid Nagy [facility] 02/19/2019 Body mass index Medical Established Patient with Vahid Nagy [facility] 01/22/2019 Obesity due to excess calories Medical E stablished Patient with Vahid Nagy [facility] 01/22/2019 Body mass index [Body mass i ndex (BMI) 35.0-35.9 adult] Medical Established Patient with Elena King [facility] 01/12/2019 Diabetes Risk Test Score was three score 01/12/2019 Medical Established Patient with Elena King [facility] 01/12/2019 Fagerstrom Score was 0 01/12/2019 Medica l Established Patient with Elena King [facility] 01/12/2019 Limb pain of shoulder region Medical Est ablished Patient with Elena King [facility] 01/12/2019 Obesity due to excess calories Medical E stablished Patient with Elena King [facility] 01/12/2019 PHQ-9: total score was 18 01/12/2019 Med ical Established Patient with Elena [facility] 01/12/2019 Assess bronchitis [facility] Irreducible ventral hernia Medical Estab lished Patient with Vahid [facility] 12/11/2018 Obesity due to excess calories Medical E stablished Patient with Vahid [facility] 12/11/2018 Z68.32 - Body mass index (BM I) 32.0-32.9 adult Medical Established Patient with Vahid [facility] 12/11/2018 Body mass index Medical [facility] Assess dermatitis Medical Established Patient with Vahid [facility] 09/30/2018 Assess urinary tract infection Medical E stablished Patient with Vahid [facility] 09/30/2018 Body mass index Medical [facility] Obesity due to excess calories Medical E stablished Patient with Vahid [facility] 08/27/2018 F17.210 - Nicotine dependenc e, cigarettes, uncomplicated BH Established Patient with Zachernestina Grimaldo [facility] 07/28/2018 F34.1 - Dysthymic disorder Establishe d Patient with Zach Grimaldo [facility] 07/28/2018 F41.1 - Generalized anxiety disorder Established Patient with Zach Grimaldo [facility] 07/28/2018 Assess diabetes mellitus Medical Establi shed [facility] Assess generalized anxiety disorder [facility] Established Patient with Vahid [facility] 07/28/2018 Assess lumbago Medical Established Patient with Vahid [facility] 07/28/2018 Assess perennial allergic rh initis with seasonal variation Medical Established Patient with Vahid [facility] 07/28/2018 Body mass index Medical Established Patient with Vahid [facility] 07/28/2018 Obesity due to excess calories Medical E stablished Patient with Vahid [facility] 07/28/2018 Assess tobacco abuse Medical Established Patient with Vahid [facility] 06/27/2018 Assessment of chronic lower back pain Me dical Established [facility] Obesity due to excess calories Medical E stablished Patient with Vahid [facility] 06/27/2018 Obesity due to excess calories Medical E stablished [facility] Diagnosis Spinal stenosis of lumbar region, unspecified whether neurogenic claudication present DDD (degenerative disc disease), lumbar Degeneration of lumbar or lumbosacral intervertebral disc Diagnosis Atherosclerosis of artery of extremity with intermittent claudication (HCC) Incontinence Unspecified urinary incontinence Chronic obstructive pulmonary disease, unspecified COPD type ([facility]) Suspected COVID-19 virus infection AMS (altered mental status) Acute on chronic respiratory failure with hypercapnia ([facility]) CAD S/P percutaneous coronary angioplasty Coronary atherosclerosis of [place] coronary artery Tobacco abuse Tobacco use disorder Diabetes mellitus ([facility]) Type II or unspecified type diabetes mellitus without mention of complication, not stated as uncontrolled Hypertension Unspecified essential hypertension E. coli UTI Urinary tract infection, site not specified Diabetic polyneuropathy associated with type 2 diabetes mellitus ([facility]) COPD exacerbation ([facility]) Obstructive chronic bronchitis with exacerbation Findings Encounter Date Assess bronchitis Medical Established Patient with Vahid Nagy [facility] 12/11/2018 Irreducible ventral hernia Medical Estab lished Patient with Vahid Angelita [facility] 12/11/2018 Obesity due to excess calories Medical E stablished [facility]2018 Z68.32 - Body mass index (BM I) 32.0-32.9 adult Medical Established [facility] Body mass index Medical [facility] Assess dermatitis Medical Established [facility] Assess urinary tract infection Medical E stablished Patient with Vahid Angelita [facility] 09/30/2018 Body mass index Medical Establ[facility] Obesity due to excess calories Medical E stablished [facility]2018 F17.210 - Nicotine dependenc e, cigarettes, uncomplicated Established Patient with Zachernestina Grimaldo [facility] 07/28/2018 F34.1 - Dysthymic disorder Establishe d Patient with Zachernestina Grimaldo [facility] 07/28/2018 F41.1 - Generalized anxiety disorder Established Patient with Zach Grimaldo [facility] 07/28/2018 Assess diabetes mellitus Medical Establi shed Patient with Vahid Angelita [facility] 07/28/2018 Assess generalized anxiety disorder [facility]ван Established Patient with Vahid Angelita [facility] 07/28/2018 Assess lumbago Medical Established Patient with Vahid Angelita [facility] 07/28/2018 Assess perennial allergic rh initis with seasonal variation Medical Established Patient with Vahid Angelita [facility] 07/28/2018 Body mass index Medical Established Patient with Vahid Nagy [facility] 07/28/2018 Obesity due to excess calories Medical E stablished Patient with Vahid Nagy [facility] 07/28/2018 Assess tobacco abuse Medical Established Patient with Vahid Nagy [facility] 06/27/2018 Assessment of chronic lower back pain Me dical Established Patient with Vahid Nagy [facility] 06/27/2018 Obesity due to excess calories Medical E stablished Patient with Vahid Nagy [facility] 06/27/2018 Obesity due to excess calories Medical E stablished Patient with Vahid Nagy [facility] 05/30/2018 Instructions Instructions not supported for this document type No Instructions Recorded Instructions not supported for this document type No Instructions Recorded Instructions not supported for this document type No Instructions Recorded Instructions not supported for this document type No Instructions Recorded Instructions not supported for this document type No Instructions Recorded Instructions not supported for this document type No Instructions Recorded Instructions not supported for this document type No Instructions Recorded Instructions not supported for this document type No Instructions Recorded Instructions not supported for this document type No Instructions Recorded Instructions not supported for this document type No Instructions Recorded Instructions not supported for this document type No Instructions Recorded Instructions not supported for this document type No Instructions Recorded Instructions not supported for this document type No Instructions Recorded Instructions not supported for this document type No Instructions Recorded Instructions not supported for this document type No Instructions Recorded Instructions not supported for this document type No Instructions Recorded Instructions not supported for this document type No Instructions Recorded Instructions not supported for this document type No Instructions Recorded Instructions not supported for this document type No Instructions Recorded Instructions not supported for this document type No Instructions Recorded Instructions not supported for this document type No Instructions Recorded Instructions not supported for this document type No Instructions Recorded Instructions not supported for this document type No Instructions Recorded Instructions not supported for this document type No Instructions Recorded Instructions not supported for this document type No Instructions Recorded Instructions not supported for this document type No Instructions Recorded Instructions not supported for this document type No Instructions Recorded Instructions not supported for this document type No Instructions Recorded Instructions not supported for this document type No Instructions Recorded Instructions not supported for this document type No Instructions Recorded Instructions not supported for this document type No Instructions Recorded Instructions not supported for this document type No Instructions Recorded Instructions not supported for this document type No Instructions Recorded History of Present Illness History of Present Illness not supported for this document type No History of Present Illness Recorded History of Present Illness not supported for this document type No History of Present Illness Recorded History of Present Illness not supported for this document type No History of Present Illness Recorded History of Present Illness not supported for this document type No History of Present Illness Recorded History of Present Illness not supported for this document type No History of Present Illness Recorded History of Present Illness not supported for this document type No History of Present Illness Recorded History of Present Illness not supported for this document type No History of Present Illness Recorded History of Present Illness not supported for this document type No History of Present Illness Recorded History of Present Illness not supported for this document type No History of Present Illness Recorded History of Present Illness not supported for this document type No History of Present Illness Recorded History of Present Illness not supported for this document type No History of Present Illness Recorded History of Present Illness not supported for this document type No History of Present Illness Recorded History of Present Illness not supported for this document type No History of Present Illness Recorded History of Present Illness not supported for this document type No History of Present Illness Recorded History of Present Illness not supported for this document type No History of Present Illness Recorded History of Present Illness not supported for this document type No History of Present Illness Recorded History of Present Illness not supported for this document type No History of Present Illness Recorded* Fátima Adaem - 09/03/2019 9:30 AM EDT Explained policies and procedures of an echocardiogram/doppler study. documented in this encounter History of Present Illness not supported for this document type No History of Present Illness Recorded History of Present Illness not supported for this document type No History of Present Illness Recorded History of Present Illness not supported for this document type No History of Present Illness Recorded History of Present Illness not supported for this document type No History of Present Illness Recorded History of Present Illness not supported for this document type No History of Present Illness Recorded History of Present Illness not supported for this document type No History of Present Illness Recorded History of Present Illness not supported for this document type No History of Present Illness Recorded History of Present Illness not supported for this document type No History of Present Illness Recorded History of Present Illness not supported for this document type No History of Present Illness Recorded* Shauna Montana RN - 03/18/2020 11:02 AM EST B/P remains high after morning meds; squad just arrived on floor for transport. IV metoprolol givenp/t leaving. Patient d/c'd off unit via cart with [facility] Belongings and paperwork in hand. No issues noted. * Kirby Birch RD, JOE - 03/18/2020 8:07 AM EST Nutrition Assessment Type and Reason for Visit: Initial, Patient Education Nutrition Recommendations/Plan: Heart healthy eating Nutrition Assessment: Obesity r/t excess energy intakes relative to expenditure, AEB BMI >30. Iss/p heart cath with pending stent. Will provide with heart healthy MNT information. Some mild weight losses over time noted, which patient states are intentional, however cannot state how she has achieved. Malnutrition Assessment: Malnutrition Status: No malnutrition Nutrition Related Findings: obese Current Nutrition Therapies: Diet NPO, After Midnight Anthropometric Measures: Height: 5' 1 (154.9 cm) Current Body Wt: 176 lb 5.9 oz (80 kg) BMI: 33.3 Nutrition Diagnosis: Overweight/Obese related to excessive energy intake as evidenced by BMI Lab Results Component Value Date NA 139 03/18/2020 K 5.1 03/18/2020 CL 103 03/18/2020 CO2 24 03/18/2020 BUN 17 03/18/2020 CREATININE 1.12 (H) 03/18/2020 GLUCOSE 95 03/18/2020 CALCIUM 9.5 03/18/2020 PROT 6.4 03/17/2020 LABALBU 3.8 03/17/2020 BILITOT 0.19 (L) 03/17/2020 ALKPHOS 69 03/17/2020 AST 11 03/17/2020 ALT 7 03/17/2020 LABGLOM 50 (L) 03/18/2020 GFRAA >60 03/18/2020 GLOB NOT REPORTED 04/21/2019 Lab Results Component Value Date LABA1C 7.5 (H) 07/24/2019 Lab Results Component Value Date EAG 169 07/24/2019 Nutrition Interventions: Food and/or Nutrient Delivery: Continue NPO Nutrition Education/Counseling: Education initiated Coordination of Nutrition Care: Continue to monitor while inpatient Goals: PO >75% post procedure Nutrition Monitoring and Evaluation: Behavioral-Environmental Outcomes: None Identified Food/Nutrient Intake Outcomes: Diet Advancement/Tolerance Physical Signs/Symptoms Outcomes: Biochemical Data, Weight Discharge Planning: No discharge needs at this time Contact: [phone] * Fadia Rojas RN - 03/18/2020 5:44 AM EST Patient's BP is still elevated. Patient states I am anxious/stressed about my health . Pt is also in pain 7/10 in the L hip. PRN ibuprofen, Zanaflex, and ativan requested and given. Pt will also have morning BP home meds this morning. * Fadia Rojas RN - 03/18/2020 3:55 AM EST PRN lopressor given at this time for elevated BP. * Fadia Rojas RN - 03/18/2020 12:45 AM EST Final layer of pressure dressing removed at this time. Small amount of bleeding on the piece of gauze underneath pressure dressing. Left open to air. * Fadia Rojas RN - 03/18/2020 12:03 AM EST Second layer of pressure dressing removed at this time. * Fadia Rojas RN - 03/18/2020 12:00 AM EST Pt made NPO at this time. * Fadia Rojas RN - 03/17/2020 11:48 PM EST First layer of pressure dressing removed at this time. documented in this encounter* Joseph Hope DO - 03/19/2020 8:14 AM EST Elise[facility] Rechecker Progress Note Date: 03/19/2020 Patient name: Jonatan Olivarez Date of admission: 03/18/2020 3:52 PM Date of : 1960 PCP: Vahid Nagy, HILDA - FABIENNE Reason for Admission: S/P cardiac cath [Z98.890] S/P angioplasty with stent [Z95.820] Subjective: Clinical Changes / Abnormalities: Patient seen and examined. No acute events overnight. Remained hemodynamically stable and afebrile. No intake/output data recorded. No intake/output data recorded. Medications: Scheduled Meds: metoprolol tartrate 25 mg Oral BID lisinopril 20 mg Oral Daily aspirin EC 81 mg Oral Daily clopidogrel 75 mg Oral Daily pravastatin 40 mg Oral Daily sodium chloride flush 10 mL Intravenous 2 times per day insulin lispro 0-12 Units Subcutaneous TID WC insulin lispro 0-6 Units Subcutaneous Nightly pregabalin 50 mg Oral BID Continuous Infusions: dextrose CBC: Recent Labs 03/17/20 1240 03/18/20 0520 03/19/20 0307 WBC 11.6* 11.1 14.4* HGB 13.9 15.3* 14.0 PLT 300 282 219 BMP: Recent Labs 03/17/20 1240 03/18/20 0520 03/19/20 0307 NA 132* 139 137 K 4.1 5.1 4.3 CL 98 103 103 CO2 28 24 24 BUN 22 17 20 CREATININE 1.40* 1.12* 1.04* GLUCOSE 174* 95 101* Hepatic: Recent Labs 03/17/20 1240 03/19/20 0307 AST 11 11 ALT 7 7 BILITOT 0.19* 0.19* ALKPHOS 69 72 Troponin: Recent Labs 03/17/20 1240 03/17/20 2030 03/17/20 2353 TROPHS 12 9 12 BNP: No results for input(s): BNP in the last 72 hours. Lipids: Recent Labs 03/18/20 0520 CHOL 186 HDL 43 INR: No results for input(s): INR in the last 72 hours. Objective: Vitals: BP 121/71 Pulse 63 Temp 97.7 F (36.5 C) (Oral) Resp 16 Ht 5' 1 (1.549 m) Wt 168 lb 3.4 oz (76.3 kg) SpO2 100% BMI 31.78 kg/m General appearance: Alert. No acute distress. HEENT: Head: Normal, normocephalic, atraumatic. Neck: no JVD, trachea midline Lungs: Clear to auscultation bilaterally, no wheeze or crackles Heart: Regular rate and rhythm, S1, S2 normal, no murmur Abdomen: Soft, non-tender Extremities: No edema Neurologic: No focal neurologic deficits ECHO: 09/03/19 Global left ventricular systolic function appears preserved with an estimated ejection fraction of 65%. The left ventricular cavity size is within normal limits and the left ventricular wall thickness is mildly increased. No definite specific wall motion abnormalities were identified. No significant valvular abnormalities. Evidence of mild (grade I) diastolic dysfunction is seen. Cath 01/2018: LMCA: Mild irregularities 10-20%. LAD: Lesion on Dist LAD: Mid subsection.80% stenosis. Lesion on 1st Diag: Ostial.80% stenosis. LCx: Lesion on Prox CX: Ostial.40% stenosis. RCA: Lesion on 1st Ac Sofia: Ostial.90% stenosis. Lesion on R PDA: Ostial.50% stenosis. Cath by Dr. Stephens 03/17/20: LMCA: Normal 0% stenosis. LAD: Mild irregularities 30-40%. Lesion on 1st Diag: Mid subsection.50% stenosis. LCx: Lesion on Mid CX: Mid subsection.50% stenosis. RCA: Lesion on Mid RCA: Distal subsection.80% stenosis. EF 65% CATH: 03/18/20 Successful PTCA -SPARKLE mid-distal RCA Residual moderate disease in LAD and LCX (50-60% stenosis) Assessment: 1. Unstable angina transferred from [place]. 2. CAD s/p PCI-mid and distal RCA 03/18/20, residual disease in LAD and Lcx 3. HTN 4. HLD, LDL 78 5. Preserved EF 6. COPD 7. Smoker 8. DM 9. Hypothyroidism Plan / Recommendations: 1. Continue asa, plavix, lopressor 25 mg bid 2. Continue pravastatin 40 mg and lisinopril 20 mg. 3. Radial access site stable. 4. Possible d/c today. 5. Outpatient follow up with cardiology. Thank you for allowing us to participate in Jonatan Olivarez's care. Will follow with you. Electronically signed on 03/19/20 at 8:14 AM by: Kenneth Canales MD Fellow, Cardiovascular Diseases [facility] Attending Dentist Addendum: I have reviewed and performed the history, physical, subjective, objective, assessment, and plan with the resident/fellow and agree with the note. I performed the history and physical personally. I have made changes to the note above as needed. Thank you for allowing me to participate in the care of this patient, please do not hesitate to call if you have any questions. Joseph Hope DO, FACC, KESHA JUDD [place] [facility] * Rena Corona RN - 03/19/2020 1:52 AM EST Patient called out to chief writer regarding home medications zanaflex and ibuprofen. Ladle Operator reached out to administrative fellow Dr. Kent, Dr. Kent called chief writer and asked for chief writer to place orders for home dosing of zanaflex, but asked to give tylenol instead of ibuprofen unless tylenol does not work. One time order of ibuprofen can be given. Patricia CHAPIN * Sherry White RN - 03/18/2020 6:33 PM EST 1620-- removed 2cc air from left band, tolerating well no noted bleeding. Took 2 hours to remove the remaining 12 cc. 1820-- removed last 2 cc of air from band, no bleeding noted. Dressing applied and then started bleeding. Applied 4x4 and direct pressure to site, continued to bleed excessively. Called for assistance, new band applied with 12cc air replaced. Pt remained calm without any s/s of dis tress, HR remained 55-62, pulse ox 94% on 2 liters. Will continue to monitor. * Juancho Zamora RN - 03/18/2020 3:58 PM EST Report to amparo chapin . Patient to room 1005 * Juancho Zamora RN - 03/18/2020 11:00 AM EST Received post cath procedure to [facility] room 7. Assessment obtained. Restrictions reviewed with patient. Post procedure pathway initiated. wrist site soft , wrist dry and intact. No hematoma noted. . Patient without complaints. * Juancho Zamora RN - 03/18/2020 11:00 AM EST Patient admitted, consent signed and questions answered. Patient ready for procedure. Call light toreach with side rails up 2 of 2. Sites clipped documented in this encounter History of Present Illness not supported for this document type No History of Present Illness Recorded History of Present Illness not supported for this document type No History of Present Illness Recorded History of Present Illness not supported for this document type No History of Present Illness Recorded History of Present Illness not supported for this document type No History of Present Illness Recorded History of Present Illness not supported for this document type No History of Present Illness Recorded History of Present Illness not supported for this document type No History of Present Illness Recorded* Domitila Pratt RPH - 07/25/2019 2:04 PM EDT Discharge prescriptions were sent to outpatient pharmacy. However, pharmacy is closed until Saturday.Sent PS message to prescriber to resend to patient's preferred pharmacy. Reviewed medication list to confirm request was completed. 21 Rxs sent to [facility] in [place]. * Leti Castellon RN - 07/25/2019 1:06 PM EDT Nurse chief writer attempted to contact patients jesi Woods at listed phone number of [phone]. No answer, message left on voice mail to please call me at [phone]. * Wes Mcbride MD - 07/25/2019 6:24 AM EDT [facility] Department of Internal Medicine - Staff Internal Medicine Teaching Service Inpatient Daily Progress Note Date: 07/25/2019 Patient Name: Jonatan Olivarez Acct: [id number] Date of Admission: 07/18/2019 1:26 AM Date of : 1960 Primary Care Physician: Vahid Nagy APRN - TRUST ADMINISTRATOR Attending Physician: Chago Boyd DO Room: [address] [place], [place] [address] Number of days in the hospital: 7 Subjective Admitting Diagnosis: Acute on chronic respiratory failure with hypercapnia (HCC) Chief Complaint: No chief complaint on file. Pt was seen and examined at bedside. Resting comfortably in the bed. Vitals stable. Labs reviewed. Potassium low, will replace. No acute events overnight. Patient respiratory status at baseline. Likely discharge today to home Objective Vital Signs: BP 137/65 Pulse 64 Temp 98.2 F (36.8 C) (Oral) Resp 17 Ht 5' 1 (1.549 m) Wt 190 lb (86.2kg) SpO2 93% BMI 35.90 kg/m Temp (24hrs), Av.2 F (36.8 C), Min:98.1 F (36.7 C), Max:98.2 F (36.8 C) No intake/output data recorded. Physical Exam - Physical Exam Vitals signs reviewed. Constitutional: Appearance: Normal appearance. HENT: Head: Normocephalic and atraumatic. Right Ear: External ear normal. Left Ear: External ear normal. Mouth/Throat: Mouth: Mucous membranes are moist. Eyes: Extraocular Movements: Extraocular movements intact. Conjunctiva/sclera: Conjunctivae normal. Neck: Musculoskeletal: Normal range of motion and neck supple. No neck rigidity. Cardiovascular: Rate and Rhythm: Normal rate and regular rhythm. Heart sounds: Normal heart sounds. No murmur. Pulmonary: Effort: Pulmonary effort is normal. No respiratory distress. Breath sounds: Normal breath sounds. No rhonchi or rales. Abdominal: General: Abdomen is flat. There is no distension. Palpations: Abdomen is soft. Tenderness: There is no abdominal tenderness. Comments: Midline well healed surgical incision scar visible Musculoskeletal: Normal range of motion. General: No deformity. Right lower leg: No edema. Left lower leg: No edema. Skin: General: Skin is warm and dry. Neurological: General: No focal deficit present. Mental Status: She is alert. Mental status is at baseline. Psychiatric: Mood and Affect: Mood normal. Medications: Scheduled Medications: lisinopril 20 mg Oral Daily insulin lispro 0-18 Units Subcutaneous TID insulin lispro 0-9 Units Subcutaneous Nightly glycopyrrolate-formoterol 2 puff Inhalation BID isosorbide mononitrate 30 mg Oral Daily sertraline 50 mg Oral Daily predniSONE 40 mg Oral Daily ipratropium-albuterol 1 ampule Inhalation TID metoprolol tartrate 25 mg Oral BID amLODIPine 10 mg Oral Daily sodium chloride flush 10 mL Intravenous 2 times per day enoxaparin 40 mg Subcutaneous Daily aspirin EC 81 mg Oral Daily atorvastatin 40 mg Oral Daily clopidogrel 75 mg Oral Daily levothyroxine 150 mcg Oral Daily miconazole Topical BID Continuous Infusions: dextrose PRN MedicationsLORazepam, 0.5 mg, Q6H PRN albuterol, 2.5 mg, As Directed RT PRN hydrALAZINE, 10 mg, Q4H PRN sodium chloride flush, 10 mL, PRN acetaminophen, 650 mg, Q6H PRN Or acetaminophen, 650 mg, Q6H PRN polyethylene glycol, 17 g, Daily PRN promethazine, 12.5 mg, Q6H PRN Or ondansetron, 4 mg, Q6H PRN glucose, 15 g, PRN dextrose, 12.5 g, PRN glucagon (rDNA), 1 mg, PRN dextrose, 100 mL/hr, PRN Diagnostic Labs: CBC: Recent Labs 07/24/19 0442 WBC 11.3 RBC 5.93* HGB 16.0* HCT 52.0* MCV 87.7 RDW 15.3* PLT 283 BMP: Recent Labs 07/23/19 0313 07/25/19 0501 NA 139 140 K 4.1 3.2* CL 101 99 CO2 25 27 BUN 30* 20 CREATININE 0.35* 0.37* Imaging: Xr Chest Portable Result Date: 07/18/2019 No obvious pneumothorax after central line placement Xr Abdomen For Ng/og/ne Tube Placement Result Date: 07/18/2019 The orogastric tube is in the distal stomach. ASSESSMENT & PLAN Principal Problem: Acute on chronic respiratory failure with hypercapnia (HCC) Active Problems: CAD S/P percutaneous coronary angioplasty Diabetic polyneuropathy associated with type 2 diabetes mellitus (HCC) Tobacco abuse COPD exacerbation (HCC) COPD (chronic obstructive pulmonary disease) (HCC) Diabetes mellitus (HCC) Hypertension AMS (altered mental status) E. coli UTI Resolved Problems: Suspected COVID-19 virus infection Acute on chronic hypoxic hypercapnic respiratory failure secondary to AE-COPD. Resolved. Extubated 07/21/2021. Off Steroids(5 days). Continue DuoNeb, Bevespi. Respiratory status back to baseline. E. coli UTI. Cipro completed. Hypertension. Continue Lopressor 25 mg twice daily, Norvasc 10 mg daily. Lisinopril 5. Will restarthome meds as tolerated. History of CAD s/p stents and PVD s/p aortobifem bypass and left femoral- popliteal bypass. ContinueAspirin and Plavix. Chronic Diastolic heart failure: 2D Echo in 2018 with EF 60%. Mild diastolic dysfunction. Not decompensated at this time. Abdominal cellulitis secondary to fungal infection: Day 10/05 of Diflucan today. Continue Micotin powder in folds. Type 2 diabetes mellitus. Controlled. Continue low-dose insulin scale. HBA1c pending Diet: Tolerating full liquid diet. Advance as tolerated DVT prophylaxis: Lovenox Discharge planning - Likely discharge to home today Bonilla Catherine MD PGY-1, Internal Medicine Resident [facility] 07/25/2019, 6:24 AM Attending Physician Statement I have discussed the care of Jonatan Olivarez and I have examined the patient myselft and taken ros and hpi , including pertinent history and exam findings, with the resident. I have reviewed the sims elements of all parts of the encounter with the resident. I agree with the assessment, plan and orders as documented by the resident. * Wes Mcbride MD - 07/24/2019 4:34 PM EDT [place] [facility] Department of Internal Medicine - Staff Internal Medicine Teaching Service ICU PATIENT TRANSFER NOTE Date: 07/24/2019 Patient Name: Jonatan Olivarez Acct: [id number] Date of Admission: 07/18/2019 1:26 AM Date of : 1960 Primary Care Physician: Vahid M Angelita, INSPECTOR [employer] - TRUST ADMINISTRATOR Attending Physician: Chago Boyd DO History Obtained From: Patient, Electronic Medical Records Date and time of sign-out: 07/24/2019 5:33 PM Accepting Internal Medicine Resident: Nagi Bee MD Accepting Medicine Team: IM Med 2 Accepting team's Attending: Wes Mcbride MD Patient's current ICU Bed: 120 Patient's assigned bed on floor: 249 Chief Complaint Fall - unknown downtime Reason For ICU Admission Acute on chronic respiratory failure with hypoxia and hypercarbia Hospital Course Jonatan Olivarez is a 58 y.o. female medical history of severe COPD, smoker and chronic respiratory failure, on 2 L of nasal cannula at home oxygen presented to [place] ER by family with history of fall. Patient was apparently found by family on the floor. Unknown downtime. [place] Patient had CT head which was normal, chest x-ray showed mild pulmonary edema. CT PE concerning forviral pneumonia. Because of concern for COVID patient was transferred to [facility]. COVID-19 testing was negative along with viral resp PCR panel. Pt was shifted out of the Covid ICU.ID started patient on fluconazole for abdominal wall fungal infection. Received iv ciprofloxacin for sensitive E.coli UTI. Extubated 07/22/2019. Patient shifted out of ICU on 07/24/2019 under internal medicine. PMH significant for COPD - 2L NC at home. Hypertension CAD - cardiac stents in 2010. Last cath 2017. On medical management with aspirin, Plavix, Toprol-XL, amlodipine, statin. PVD - follows with vascular surgery. S/p Aortobifem bypass and left femoropopliteal bypass Smoker - 40 pack years Diastolic CHF DM2 with severe neuropathy on pioglitazone Hypothyroidism Anxiety on Ativan 0.5mg Q6h. Medications Home: Prior to Admission medications Medication Sig Start Date End Date Taking? Authorizing Provider clopidogrel (PLAVIX) 75 MG tablet TAKE ONE TABLET BY MOUTH DAILY 05/15/19 Josef Brooks MD OXYGEN Inhale 2 L into the lungs Historical Provider, isosorbide mononitrate (IMDUR) 30 MG extended release tablet Take 1 tablet by mouth daily 05/04/19 Josef Brooks MD amLODIPine (NORVASC) 2.5 MG tablet Take 1 tablet by mouth daily 05/04/19 Josef Brooks MD glycopyrrolate-formoterol (BEVESPI AEROSPHERE) 9-4.8 MCG/ACT AERO Inhale 2 puffs into the lungs 2 times daily 05/04/19 Martin Alvarez MD albuterol (PROVENTIL) (2.5 MG/3ML) 0.083% nebulizer solution Take 3 mLs by nebulization every 6 hours as needed for Wheezing 04/26/19 Ziggy Smith MD sertraline (ZOLOFT) 50 MG tablet Take 50 mg by mouth daily Historical Provider, beclomethasone (QVAR) 80 MCG/ACT inhaler Inhale 1 puff into the lungs 2 times daily Historical Provider, meclizine (ANTIVERT) 12.5 MG tablet Take 12.5 mg by mouth 3 times daily as needed Historical Provider, tiZANidine (ZANAFLEX) 4 MG tablet Take 4 mg by mouth every 6 hours as needed Historical Provider, ibuprofen (ADVIL;MOTRIN) 800 MG tablet Take 1 tablet by mouth every 8 hours as needed for Pain 05/18/18 Marita Munoz DO LORazepam (ATIVAN) 0.5 MG tablet Take 0.5 mg by mouth every 6 hours as needed for Anxiety.. Historical Provider, atorvastatin (LIPITOR) 40 MG tablet Take 1 tablet by mouth daily 02/25/18 Zach Stephens MD aspirin EC 81 MG EC tablet Take 1 tablet by mouth daily 02/24/18 Josef Brooks MD gabapentin (NEURONTIN) 800 MG tablet Take 800 mg by mouth 3 times daily.. Historical Provider, levothyroxine (SYNTHROID) 150 MCG tablet Take 150 mcg by mouth daily Historical Provider, metoprolol succinate (TOPROL XL) 100 MG extended release tablet Take 100 mg by mouth daily Historical Provider, nitroGLYCERIN (NITROSTAT) 0.[address] 0.4 mg under the tongue as needed Historical Provider, pioglitazone (ACTOS) 15 MG tablet Take 15 mg by mouth daily Historical Provider, Incontinence Supply Disposable [facility] [place] [facility] Incontinence pads 150 per month. Please order pad that is covered by insurance plan 09/21/14 Kathie Oakley MD TRUETRACK TEST strip use as directed TO TEST BLOOD SUGAR three times a day 08/26/14 Kathie Oakley MD Blood Pressure Monitoring [facility] [place] To monitor blood pressure as needed. Please order device that is covered by insurance. 06/28/14 Kelton Zazueta, INSPECTOR [employer] - TRUST ADMINISTRATOR Current Inpatient: Scheduled Meds: [START ON 07/25/2019] lisinopril 20 mg Oral Daily insulin lispro 0-18 Units Subcutaneous TID WC insulin lispro 0-9 Units Subcutaneous Nightly glycopyrrolate-formoterol 2 puff Inhalation BID isosorbide mononitrate 30 mg Oral Daily sertraline 50 mg Oral Daily predniSONE 40 mg Oral Daily ciprofloxacin 500 mg Oral 2 times per day ipratropium-albuterol 1 ampule Inhalation TID metoprolol tartrate 25 mg Oral BID amLODIPine 10 mg Oral Daily sodium chloride flush 10 mL Intravenous 2 times per day enoxaparin 40 mg Subcutaneous Daily aspirin EC 81 mg Oral Daily atorvastatin 40 mg Oral Daily clopidogrel 75 mg Oral Daily levothyroxine 150 mcg Oral Daily miconazole Topical BID Continuous Infusions: dextrose PRN Meds: LORazepam, albuterol, hydrALAZINE, sodium chloride flush, acetaminophen OR acetaminophen, polyethylene glycol, promethazine OR ondansetron, glucose, dextrose, glucagon (rDNA), dextrose Physical Examination Vitals: 07/24/19 0800 07/24/19 1155 07/24/19 1404 07/24/19 1534 BP: (!) 168/68 (!) 160/65 (!) 143/71 Pulse: 76 72 74 Resp: 13 14 13 18 Temp: 98.1 F (36.7 C) 98.2 F (36.8 C) TempSrc: Oral Oral SpO2: 97% 96% 93% 96% Weight: Height: 24 hour intake/output: Intake/Output Summary (Last 24 hours) at 07/24/2019 1733 Last data filed at 07/24/2019 0700 Gross per 24 hour Intake 960 ml Output Net 960 ml Last 3 weights: Wt Readings from Last 3 Encounters: 07/23/19 190 lb (86.2 kg) 07/17/19 180 lb (81.6 kg) 06/15/19 180 lb (81.6 kg) Constitutional: Alert and oriented to self and place, no acute distress EENT: sclera clear, anicteric, oropharynx clear Neck: Supple, symmetrical, trachea midline Respiratory: Bilateral breath sounds present. No wheezes or rales. Cardiovascular: regular rate and rhythm, normal S1, S2, no murmur noted. Abdomen: Healed midline infraumbilical scar, reducible incisional hernia, soft, nontender, nondistended, or organomegaly Neurologic: Awake, alert. Motor grossly intact. At baseline. Extremities: Peripheral pulses normal, no clubbing or cyanosis. No peripheral edema. Laboratory Results CBC: Recent Labs 07/22/1931007/24/19 0442 WBC 12.1* 11.3 RBC 5.36* 5.93* HGB 14.9 16.0* HCT 48.9* 52.0* MCV 91.2 87.7 RDW 15.9* 15.3* PLT 257 283 BMP: Recent Labs 07/22/1931007/23/19 0313 NA 141 139 K 4.1 4.1 CL 103 101 CO2 23 25 BUN 29* 30* CREATININE 0.47* 0.35* Imaging Results Ct Head Wo Contrast Result Date: 07/17/2019 No acute findings in the head. Xr Chest Portable Result Date: 07/18/2019 No obvious pneumothorax after central line placement Xr Chest Portable Result Date: 07/17/2019 Mild pulmonary edema. Small linear left lower lobe opacity is suspected to be atelectasis or scarring. Ct Chest Pulmonary Embolism W Contrast Result Date: 07/17/2019 Mild edema. Nonspecific peripheral infiltrates appear somewhat improved. Coronary artery disease. RECOMMENDATIONS: Imaging features can be seen with viral pneumonia, though are nonspecific and can occur with a variety of infectious and noninfectious processes. PneInd Xr Abdomen For Ng/og/ne Tube Placement Result Date: 07/18/2019 The orogastric tube is in the distal stomach. Assessment and Plan Principal Problem: Acute on chronic respiratory failure with hypercapnia (HCC) Active Problems: CAD S/P percutaneous coronary angioplasty Diabetic polyneuropathy associated with type 2 diabetes mellitus (HCC) Tobacco abuse COPD exacerbation (HCC) COPD (chronic obstructive pulmonary disease) (HCC) Diabetes mellitus (HCC) Hypertension AMS (altered mental status) E. coli UTI Resolved Problems: Suspected COVID-19 virus infection Acute on chronic hypoxic hypercapnic respiratory failure secondary to AE-COPD. Resolved. Extubated 07/21/2021. Off Steroids(5 days). Continue DuoNeb, Bevespi. E. coli UTI. Continue ciprofloxacin IV x 5 days (day 2/5). ID following Hypertension. Continue Lopressor 25 mg twice daily, Norvasc 10 mg daily. Lisinopril 5. Will restarthome meds as tolerated. History of CAD s/p stents and PVD s/p aortobifem bypass and left femoral- popliteal bypass. ContinueAspirin and Plavix. Chronic Diastolic heart failure: 2D Echo in 2018 with EF 60%. Mild diastolic dysfunction. Abdominal cellulitis secondary to fungal infection: Day 7 of Diflucan today. Continue Micotin powder in folds. Type 2 diabetes mellitus. Controlled. Continue low-dose insulin scale. Diet: Tolerating full liquid diet. Advance as tolerated DVT prophylaxis: Lovenox Bonilla Garett Catherine MD PGY-1, Internal Medicine Resident [facility] 07/24/2019, 5:33 PM Attending Physician Statement I have discussed the care of Jonatan Olivarez and I have examined the patient myselft and taken ros and hpi , including pertinent history and exam findings, with the resident. I have reviewed the sims elements of all parts of the encounter with the resident. I agree with the assessment, plan and orders as documented by the resident. * Kristen Alexandre MD - 07/24/2019 2:11 PM EDT Critical care team - Resident sign-out to medicine service Date and time: 07/23/2019 11:49 AM Patient's name: Jonatan Olivarez Patient's account/billing number: [id number] Patient's Date of : 1960 Age: 58 y.o. Date of Admission: 07/18/2019 1:26 AM Length of stay during current admission: 5 Primary Care Physician: HILDA Land CNP Code Status: Full Code Mode of physician to physician communication: [x] Via telephone [] In person Date and time of sign-out: 07/23/2019 11:49 AM Accepting Internal Medicine resident: Dr. Bee Accepting Medicine team: IM Team Med 2 Accepting team's attending: Dr. Mcbride Patient's current ICU Bed: 120 Patient's assigned bed on floor: 249 [x] Med-Surg Monitored [] Step-down [] Psychiatry ICU [] Psych floor Reason for ICU admission: Acute on chronic respiratory failure with hypoxia and hypercarbia ICU course summary: 58-year-old female with past medical history of chronic respiratory failure, COPD, hypertension, CAD, PVD, diastolic heart failure, type 2 diabetes mellitus who initially presented to [place] ED with altered mental status, hypoxia and hypercapnia and was intubated at [place]. CT PE negative for PE but concerning for viral pneumonia due to bilateral interstitial infiltrates.She was initially admitted to COVID ICU. COVID-19 testing was negative along with viral resp PCR panel. Received 1 dose of Levaquin and later discontinued. ID started patient on fluconazole for abdominal wall fungal infection. Received iv ciprofloxacin for sensitive E.coli UTI. Extubated 07/22/2019 Procedures during patient's ICU stay: CVC placement, endotracheal intubation Current Vitals: BP (!) 156/82 Pulse 73 Temp 98.2 F (36.8 C) (Oral) Resp 14 Ht 5' 1 (1.549 m) Wt 190 lb (86.2 kg) SpO2 91% BMI 35.90 kg/m Cultures: Blood cultures: [] None drawn [] Negative [] Positive (Details: ) Urine Culture: [] None drawn [] Negative [] Positive (Details: ) Sputum Culture: [] None drawn [] Negative [] Positive (Details: ) Endotracheal aspirate: [] None drawn [] Negative [] Positive (Details: ) Consults: 1. ID Assessment: Principal Problem: Acute on chronic respiratory failure with hypercapnia (HCC) Active Problems: CAD S/P percutaneous coronary angioplasty Tobacco abuse COPD (chronic obstructive pulmonary disease) (HCC) Diabetes mellitus (HCC) Hypertension COVID-19 AMS (altered mental status) E. coli UTI Resolved Problems: * No resolved hospital problems. * Recommended Follow-up: 1. Continue bronchodilators and steroids. No need for steroid taper. 2. Wean O2 as tolerated. Uses O2 at home 3. Complete diflucan and ciprofloxacin tomorrow 4. Will JACKELINE walker Above mentioned assessment and plan was discussed by me with the admitting medicine resident. The medicine team assigned to the patient by medicine admitting resident will be following up the patientfrom now onwards on the floor. Kristen Alexandre MD PGY-2, Internal medicine resident [facility], [place], [place] 07/24/2019 1:45 PM * Mely Virk, RD, LD - 07/24/2019 1:36 PM EDT Nutrition Assessment Type and Reason for Visit: Reassess Nutrition Recommendations: Please encourage po intake. Will continue General diet due to minimal intake. Nutrition Assessment: Pt is now extubated and advanced to solid food. Pt states she does not want supplements. Nursing states pt eats minimal amounts (bites) Malnutrition Assessment: Malnutrition Status: At risk for malnutrition Context: Acute illness or injury Findings of the 6 clinical characteristics of malnutrition (Minimum of 2 out of 6 clinical characteristics is required to make the diagnosis of moderate or severe Protein Calorie Malnutrition based on AND/ASPEN Guidelines): 1. Energy Intake-Unable to assess, 2. Weight Loss-5% loss or greater, (x 7 mo) 3. Fat Loss-No significant subcutaneous fat loss, 4. Muscle Loss-No significant muscle mass loss, 5. Fluid Accumulation-Mild fluid accumulation, Generalized 6. [employer]er Strength-Not measured Nutrition Risk Level: High Nutrient Needs: Estimated Daily Total Kcal: 20-25 ~> 5641-9822 kcals/d Estimated Daily Protein (g): 1.2-2.0 gm/kg ~> 58-96 gms/d Nutrition Diagnosis: Problem: Inadequate oral intake Etiology: related to (poor appetite) ? Signs and symptoms: as evidenced by Intake 0-25% Objective Information: Current Nutrition Therapies: Oral Diet Orders: General Oral Diet intake: 1-25% Anthropometric Measures: Ht: 5' 1 (154.9 cm) Current Body Wt: 190 lb (86.2 kg) Admission Body Wt: 173 lb (78.5 kg) % Weight Change: , 6% wt loss x 7 mo per EMR [place] Body Wt: 105 lb (47.6 kg), % [place] Body 165% adm/ideal BMI Classification: BMI 30.0 - 34.9 Obese Class I(32.3) Nutrition Interventions: Continue current diet Continued Inpatient Monitoring, Education Not Indicated Nutrition Evaluation: Evaluation: Goals set Goals: po intake greater than 50% Monitoring: Meal Intake Contact Number: [phone] * Veronica Palacio, OT - 07/24/2019 10:12 AM EDT Occupational Therapy Facility/Department: [address] Daily Treatment Note NAME: Jonatan Olivarez : 1960 Date of Service: 07/24/2019 Discharge Recommendations: Patient would benefit from continued therapy after discharge Copied from Infectious Disease: Patient presented to [facility] on 07-16 after a fall and confusion. Per the notes, pt had fallen earlier in the day. Later in the afternoon she was acting confused and the family called 911. PMH is significant for ES COPD, on home O2 and continues to smoke. DMII with severe neuropathy, CADs/p multiple stents, Diastolic CHF and severe PAD s/p multiple bypass surgeries. On arrival to the ED pt was hypoxic with a PO2 of 37 on ABG and SaO2 of 64%. She was placed on 35% high flow O2 and started on Levaquin because of Zithromax and Cephalosporin allergies. CT brain - wnl CXR mild pulm edema CT chest concerning for viral pna She was transferred to [facility] for further care Assessment Performance deficits / Impairments: Decreased functional mobility ;Decreased ADL status;Decreased high-level IADLs;Decreased endurance;Decreased safe awareness;Decreased strength Assessment: Patient is expected to need acute OT services to address functional deficits impacting performance and safety with ADLs and functional tasks. Pt demonstrates decreased endurance with activity, affecting performance and safety with functional tasks. OT services are warranted to maximize safety and independent for safe return home. Treatment Diagnosis: Acute on Chronic Respiratory failure Prognosis: Fair REQUIRES OT FOLLOW UP: Yes Safety Devices Safety Devices in place: Yes Type of devices: Left in chair;Call light within reach;Chair alarm in place Patient Diagnosis(es): There were no encounter diagnoses. has a past medical history of Asthma, Back problem, CAD (coronary artery disease), COPD (chronic obstructive pulmonary disease) (HCC), Depression, Diabetes mellitus (HCC), Edema, H/O cardiac catheterization, Hernia of abdominal wall, History of cardiovascular stress test, History of echocardiogram,History of stress test, Hx of blood clots, Hypertension, Hypothyroidism, Leg pain, bilateral, and Wears partial dentures. has a past surgical history that includes Cholecystectomy; Hysterectomy; femoral bypass; Cardiac surgery; Cardiac catheterization; vascular surgery; Aorta surgery (05/2016); and Cardiac catheterization (Left, 02/25/2018). Restrictions Restrictions/Precautions Restrictions/Precautions: Fall Risk, Up as Tolerated, Contact Precautions Required Braces or Orthoses?: No Position Activity Restriction Other position/activity restrictions: 2L O2 at baseline Subjective General Patient assessed for rehabilitation services?: Yes Family / Caregiver Present: No General Comment Comments: RN ok'd patient for OT/PT evaluation. Pt agreeable and pleasant throughout. Pain Assessment Pain Assessment: 0-10 Pain Level: 0 Vital Signs Patient Currently in Pain: No Orientation Orientation Orientation Level: Oriented to place;Oriented to person;Disoriented to time Objective ADL Feeding: Independent;Setup Grooming: Independent;Setup(face washing, oral care, applying lotion to BUE's and hands) UE Bathing: Increased time to complete;Setup;Minimal assistance(for back) LE Bathing: Moderate assistance;Increased time to complete;Setup UE Dressing: Setup;Increased time to complete;Minimal assistance(for back) LE Dressing: Moderate assistance;Increased time to complete;Setup Toileting: Minimal assistance;Setup;Increased time to complete Balance Sitting Balance: Stand by assistance(edge of chair-5 min) Standing Balance: Contact guard assistance Standing Balance Time: ~2 min Activity: static Functional Mobility Functional - Mobility Device: Standard Walker Assist Level: Minimal assistance Functional Mobility Comments: from chair to toilet Transfers Stand Step Transfers: Minimal assistance Sit to stand: Minimal assistance Stand to sit: Minimal assistance Transfer Comments: for safety; cues for hand placement and transfer safety Cognition Arousal/Alertness: Appropriate responses to stimuli Following Commands: Follows one step commands with repetition Safety Judgement: Decreased awareness of need for safety Insights: Decreased awareness of deficits Initiation: Requires cues for some Sequencing: Requires cues for some Plan Plan Times per week: 3-4x/wk Goals Short term goals Time Frame for Short term goals: Patient will, by discharge Short term goal 1: demonstrate UB self-cares independently Short term goal 2: demonstrate LB self-cares at Mod I using AE PRN Short term goal 3: demonstrate functional transfers/mobility at supervision using LRD to engage in ADLs safely Short term goal 4: demonstrate ~10 min of dynamic standing tolerance using LRD to engage in ADLs atSBA Short term goal 5: demonstrate implementation of energy conservation strategies into ADL tasks <2 verbal cues Therapy Time Individual Concurrent Group Co-treatment Time In 929 Time Out 1012 Minutes 42 Timed Code Treatment Minutes: 42 Minutes VERONICA PALACIO OTR/L * Kristen Alexandre MD - 07/24/2019 9:43 AM EDT Critical Care Team - Daily Progress Note Date and time: 07/24/2019 9:43 AM Patient's name: Jonatan Olivarez Patient's account/billing number: [id number] Patient's Date of : 1960 Age: 58 y.o. Date of Admission: 07/18/2019 1:26 AM Length of stay during current admission: 6 Primary Care Physician: Vahid Nagy APRN - TRUST ADMINISTRATOR ICU Attending Physician: Dr. Austen Alvarez Code Status: Full Code Reason for ICU admission: Acute Hypoxic respiratory failure Patient is a 58-year-old female with past medical history of chronic respiratory failure, COPD, hypertension, CAD, PVD, diastolic heart failure, type 2 diabetes mellitus who initially presented to [place] ED with altered mental status, hypoxia and hypercapnia and was intubated at [place]. CT PE negative for PE but concerning for viral pneumonia due to bilateral interstitial infiltrates.She was initially admitted to COVID ICU. COVID-19 testing was negative along with viral resp PCR panel. Received 1 dose of Levaquin and later discontinued. ID started patient on fluconazole for abdominal wall fungal infection. She was also started on diuretics. SUBJECTIVE: OVERNIGHT EVENTS: No acute events reported. Resting in her chair this morning. O2 saturation 96% on 2 L nasal cannula. Urine output not being measured, however she seems to be voiding well per nursing. Afebrile. AWAKE & FOLLOWING COMMANDS: [] No [x] Yes CURRENT VENTILATION STATUS: [] Ventilator [] BIPAP [x] Nasal Cannula [] Room Air IF INTUBATED, ET TUBE MARKING AT LOWER LIP: SECRETIONS Amount: [x] Small [] Moderate [] Large [] None Color: [x] White [] Colored [] Bloody SEDATION: RAAS Score: [] Propofol gtt [] Versed gtt [] Ativan gtt [] No Sedation PARALYZED: [x] No [] Yes DIARRHEA: [x] No [] Yes (C. Difficile status: [] positive [] negative [] pending) VASOPRESSORS: [x] No [] Yes If yes - [] Levophed [] Dopamine [] Vasopressin [] Dobutamine [] Phenylephrine [] Epinephrine CENTRAL LINES: [] No [x] Yes (Date of Insertion: 07/18/2019) If yes - [x] Right IJ [] Left IJ [] Right Femoral [] Left Femoral [] Right Subclavian [] Left Subclavian UREÑA'S CATHETER: [x] No [] Yes (Date of Insertion: ) URINE OUTPUT: [x] Good [] Low [] Anuric Review of Systems Constitutional: Negative for appetite change, chills and fever. HENT: Negative for sinus pressure, sneezing and sore throat. Respiratory: Positive for cough. Negative for chest tightness, shortness of breath and wheezing. Cardiovascular: Negative for chest pain, palpitations and leg swelling. Gastrointestinal: Positive for constipation. Negative for abdominal pain, diarrhea, nausea and vomiting. Genitourinary: Negative for decreased urine volume, dysuria and urgency. Musculoskeletal: Negative for joint swelling, myalgias and neck pain. Neurological: Negative for light-headedness, numbness and headaches. Psychiatric/Behavioral: Positive for decreased concentration. Negative for confusion and sleep disturbance. The patient is not nervous/anxious. OBJECTIVE: VITAL SIGNS: BP (!) 168/68 Pulse 76 Temp 98.1 F (36.7 C) (Oral) Resp 13 Ht 5' 1 (1.549 m) Wt 190 lb (86.2 kg) SpO2 97% BMI 35.90 kg/m Tmax over 24 hours: Temp (24hrs), Av.2 F (36.8 C), Min:98 F (36.7 C), Max:98.4 F (36.9 C) Patient Vitals for the past 8 hrs: BP Temp Temp src Pulse Resp SpO2 07/24/19 0800 (!) 168/68 98.1 F (36.7 C) Oral 76 13 97 % 07/24/19 0736 12 99 % 07/24/19 0735 14 97 % 07/24/19 0700 73 14 97 % 07/24/19 0600 68 10 97 % 07/24/19 0500 63 15 95 % 07/24/19 0400 64 98 % Intake/Output Summary (Last 24 hours) at 07/24/2019 0943 Last data filed at 07/24/2019 0700 Gross per 24 hour Intake 1155 ml Output Net 1155 ml Date 07/24/19 0000 - 07/24/19 2359 Shift 0553-7088 6562-7364 0816-0012 24 Hour Total INTAKE P.O.(mL/kg/hr) 960(1.4) 960 Shift Total(mL/kg) 960(11.1) 960(11.1) OUTPUT Shift Total(mL/kg) Weight (kg) 86.2 86.2 86.2 86.2 Wt Readings from Last 3 Encounters: 07/23/19 190 lb (86.2 kg) 07/17/19 180 lb (81.6 kg) 06/15/19 180 lb (81.6 kg) Body mass index is 35.9 kg/m . PHYSICAL EXAM: Constitutional: Alert and oriented to self and place, not in obvious distress EENT: PERRLA, EOMI, sclera clear, anicteric, oropharynx clear Neck: Supple, symmetrical, trachea midline, no adenopathy, thyroid symmetric, no jvd skin normal Respiratory: Bilateral breath sounds present. No wheezes or rales. Cardiovascular: regular rate and rhythm, normal S1, S2, no murmur noted and 2+ pulses throughout Abdomen: Healed midline infraumbilical scar, reducible incisional hernia, soft, nontender, nondistended, or organomegaly NEUROLOGIC: Awake, alert. Motor grossly intact. Extremities: peripheral pulses normal, no clubbing or cyanosis. Nil peripheral edema present SKIN: normal coloration and turgor MEDICATIONS: Scheduled Meds: lisinopril 5 mg Oral Daily glycopyrrolate-formoterol 2 puff Inhalation BID isosorbide mononitrate 30 mg Oral Daily sertraline 50 mg Oral Daily predniSONE 40 mg Oral Daily ciprofloxacin 500 mg Oral 2 times per day insulin lispro 0-12 Units Subcutaneous 4x Daily AC & HS insulin lispro 0-6 Units Subcutaneous Nightly ipratropium-albuterol 1 ampule Inhalation TID metoprolol tartrate 25 mg Oral BID amLODIPine 10 mg Oral Daily sodium chloride flush 10 mL Intravenous 2 times per day enoxaparin 40 mg Subcutaneous Daily aspirin EC 81 mg Oral Daily atorvastatin 40 mg Oral Daily clopidogrel 75 mg Oral Daily levothyroxine 150 mcg Oral Daily miconazole Topical BID Continuous Infusions: dextrose PRN Meds: LORazepam, 0.5 mg, Q6H PRN albuterol, 2.5 mg, As Directed RT PRN hydrALAZINE, 10 mg, Q4H PRN sodium chloride flush, 10 mL, PRN acetaminophen, 650 mg, Q6H PRN Or acetaminophen, 650 mg, Q6H PRN polyethylene glycol, 17 g, Daily PRN promethazine, 12.5 mg, Q6H PRN Or ondansetron, 4 mg, Q6H PRN glucose, 15 g, PRN dextrose, 12.5 g, PRN glucagon (rDNA), 1 mg, PRN dextrose, 100 mL/hr, PRN SUPPORT DEVICES: [] Ventilator [] BIPAP [x] Nasal Cannula [] Room Air VENT SETTINGS (Comprehensive) (if applicable): Lab Results Component Value Date PHART 7.321 07/17/2019 OXY0PKK 64.4 07/17/2019 PO2ART 37.1 07/17/2019 ACY0CHW 32.5 07/17/2019 CKD6QCS 33 07/18/2019 [id number] 64.5 07/17/2019 FIO2 NOT REPORTED 07/18/2019 Lactic Acid: Lab Results Component Value Date LACTA NOT REPORTED 07/19/2019 LACTA 1.2 04/22/2019 LACTA 0.6 04/21/2019 DATA: Complete Blood Count: Recent Labs 07/21/19 1355 07/22/19 0311 07/24/19 0442 WBC -- 12.1* 11.3 HGB 14.6 14.9 16.0* MCV -- 91.2 87.7 PLT -- 257 283 RBC -- 5.36* 5.93* HCT 47.3* 48.9* 52.0* MCH -- 27.8 27.0 MCHC -- 30.5 30.8 RDW -- 15.9* 15.3* MPV -- 9.7 9.6 PT/INR: Lab Results Component Value Date PROTIME 10.6 07/17/2019 PROTIME 10.1 03/11/2011 INR 1.0 07/17/2019 PTT: Lab Results Component Value Date APTT 25.4 06/24/2013 Basal Metabolic Profile: Recent Labs 07/22/19 0311 07/23/19 0313 NA 141 139 K 4.1 4.1 BUN 29* 30* CREATININE 0.47* 0.35* CL 103 101 CO2 23 25 Magnesium: Lab Results Component Value Date MG 1.9 07/18/2019 Phosphorus: No results found for: PHOS S. Calcium: Recent Labs 07/23/19312 CALCIUM 8.9 S. Ionized Calcium:No results for input(s): IONCA in the last 72 hours. Urinalysis: Lab Results Component Value Date NITRU NEGATIVE 07/18/2019 COLORU DARK YELLOW 07/18/2019 PHUR 5.0 07/18/2019 WBCUA 5 TO 10 07/18/2019 RBCUA 2 TO 5 07/18/2019 MUCUS 1+ 07/18/2019 TRICHOMONAS NOT REPORTED 07/18/2019 YEAST NOT REPORTED 07/18/2019 BACTERIA NOT REPORTED 07/18/2019 SPECGRAV 1.041 07/18/2019 LEUKOCYTESUR SMALL 07/18/2019 UROBILINOGEN Normal 07/18/2019 BILIRUBINUR NEGATIVE Verified by ictotest. 07/18/2019 GLUCOSEU NEGATIVE 07/18/2019 KETUA NEGATIVE 07/18/2019 AMORPHOUS NOT REPORTED 07/18/2019 CARDIAC ENZYMES: No results for input(s): CKMB, CKMBINDEX, TROPONINI in the last 72 hours. Invalid input(s): CKTOTAL;3 BNP: No results for input(s): BNP in the last 72 hours. LFTS No results for input(s): ALKPHOS, ALT, AST, BILITOT, BILIDIR, LABALBU in the last 72 hours. AMYLASE/LIPASE/AMMONIA No results for input(s): AMYLASE, LIPASE, AMMONIA in the last 72 hours. Last 3 Blood Glucose: Recent Labs 07/22/19 0311 07/23/19 0313 GLUCOSE 150* 144* HgBA1c: Lab Results Component Value Date LABA1C 7.0 12/17/2011 TSH: Lab Results Component Value Date TSH 0.95 07/19/2019 ANEMIA STUDIES No results for input(s): LABIRON, TIBC, FERRITIN, [id number], FOLATE, OCCULTBLD in the last 72 hours. Cultures during this admission: Blood cultures: [] None drawn [x] Negative [] Positive (Details: ) Urine Culture: [] None drawn [] Negative [x] Positive (Details: ESCHERICHIA COLI >[id number] CFU/ML) Sputum Culture: [] None drawn [] Negative [] Positive (Details: ) Endotracheal aspirate: [x] None drawn [] Negative [] Positive (Details: ) ASSESSMENT: Principal Problem: Acute on chronic respiratory failure with hypercapnia (HCC) Active Problems: CAD S/P percutaneous coronary angioplasty Tobacco abuse COPD (chronic obstructive pulmonary disease) (HCC) Diabetes mellitus (HCC) Hypertension COVID-19 AMS (altered mental status) E. coli UTI Resolved Problems: * No resolved hospital problems. * PLAN: 1. Acute on chronic hypoxic hypercapnic respiratory failure simply secondary to AE-COPD. Resolved. Extubated on 07/21/2021. Continue steroids to prednisone 40 mg p.o. daily for total 5 days (day 5/5).Continue DuoNeb, Bevespi. 2. E. coli UTI. Continue ciprofloxacin IV x 5 days (day 2/5). ID following 3. Hypertension. Continue Lopressor 25 mg twice daily, Norvasc 10 mg daily. Added Lisinopril 5 thismorning. 4. History of CAD S/P stents and PVD S/P aortobifem bypass and left femoral- popliteal bypass. Continue aspirin and Plavix. 5. Chronic Diastolic heart failure. Stable echo in 2018 with EF 60%. No diuresis. 6. Abdominal cellulitis secondary to fungal infection. Day 7/7 of diflucan today. Continue Micotin powder in folds. 7. Type 2 diabetes mellitus. Controlled. Continue low-dose insulin scale 8. Diet. Tolerating full liquid diet. Advance as tolerated 9. DVT prophylaxis. lovenox 10. GI prophylaxis. Not indicated. 11. Disposition. OK to transfer to [facility] surg monitored bed. Kristen Alexandre MD PGY-2, Internal medicine resident [facility], [place], [place] 07/24/2019 9:55 AM Associated attestation - Martin Alvarez MD - 07/24/2019 2:58 PM EDT Attending Physician Statement I have discussed the case of Jonatan Olivarez, including pertinent history and exam findings with the resident/fellow/RABBET OPERATOR/PA. I have seen and examined the patient and the sims elements of the encounter have been performed by me. I agree with the assessment, plan and orders as documented by the resident/fellow/RABBET OPERATOR/PA With changes made to the note as needed. Pt was seen during rounds. Review of Systems: In addition to the pertinent positives and negatives as stated within HPI and the review of systemsas documented in their notes, all other systems were reviewed when able to and are reported negative. Patient on 2 L by nasal cannula Leukocytosis stable Hemoglobin slightly higher Continue to monitor On Lovenox Transfer the patient to [facility] monitored bed We will follow the patient from pulmonary standpoint Martin Alvarez 07/24/2019 2:58 PM * Enzo Lerma PTA - 07/24/2019 8:30 AM EDT Physical Therapy Facility/Department: [address] Daily Treatment Note NAME: Jonatan Olivarez : 1960 Date of Service: 07/24/2019 Discharge Recommendations: Continue to assess pending progress PT Equipment Recommendations Equipment Needed: No Assessment Body structures, Functions, Activity limitations: Decreased functional mobility ;Decreased endurance;Decreased balance Specific instructions for Next Treatment: Increase ambulation. Prognosis: Good Decision Making: Medium Complexity PT Education: PT Role;Plan of Care;General Safety REQUIRES PT FOLLOW UP: Yes Activity Tolerance Activity Tolerance: Patient limited by fatigue;Patient limited by endurance Patient Diagnosis(es): There were no encounter diagnoses. has a past medical history of Asthma, Back problem, CAD (coronary artery disease), COPD (chronic obstructive pulmonary disease) (HCC), Depression, Diabetes mellitus (HCC), Edema, H/O cardiac catheterization, Hernia of abdominal wall, History of cardiovascular stress test, History of echocardiogram,History of stress test, Hx of blood clots, Hypertension, Hypothyroidism, Leg pain, bilateral, and Wears partial dentures. has a past surgical history that includes Cholecystectomy; Hysterectomy; femoral bypass; Cardiac surgery; Cardiac catheterization; vascular surgery; Aorta surgery (05/2016); and Cardiac catheterization (Left, 02/25/2018). Restrictions Restrictions/Precautions Restrictions/Precautions: Fall Risk, Up as Tolerated, Contact Precautions Required Braces or Orthoses?: No Position Activity Restriction Other position/activity restrictions: 2L O2 at baseline Subjective Pt sitting up in her chair watching TV. Pt declines to ambulate. Pt is agreeable to do ex's in her chair. Pt appears to be pleasantly confused. Pt voiced being upset that he son hasn't come to see her. Pt has no c/o pain. Orientation Overall Orientation Status: Within Functional Limits Objective Ex's Upper extremity exercises: Bicep curl, shoulder flexion/extension, punches. Reps: 2 x 10 AROM. Seated LE exercise program: Long Arc Quads,heel/toe raises, and marches. Reps: 2 x 10 AROM Goals Short term goals Time Frame for Short term goals: 14 visits Short term goal 1: Independent bed mobility Short term goal 2: Independent transfers Short term goal 3: Independent ambulation without device 300 ft Short term goal 4: Pt to tolerate 30 minutes of activity to improve endurance. Patient Goals Patient goals : Go home MALINI Plan Plan Times per week: 5-6x/week Specific instructions for Next Treatment: Increase ambulation. Current Treatment Recommendations: Strengthening, Functional Mobility Training, Transfer Training, Gait Training, Safety Education & Training, Endurance Training Safety Devices Type of devices: Gait belt, Call light within reach, Chair alarm in place, Left in chair, Nurse notified Therapy Time Individual Concurrent Group Co-treatment Time In 815 Time Out 835 Minutes 20 ENZO LERMA PTA * Tre Wayne RCP - 07/23/2019 8:20 PM EDT DENISA VALENCIAatient Assessment complete. COVID-19 [U07.1, J98.8] COVID-19 [U07.1, J98.8] . Vitals: 07/23/192003 BP: Pulse: Resp: 15 Temp: SpO2: 94% . Patients home meds are Prior to Admission medications Medication Sig Start Date End Date Taking? Authorizing Provider clopidogrel (PLAVIX) 75 MG tablet TAKE ONE TABLET BY MOUTH DAILY 05/15/19 Josef Brooks MD OXYGEN Inhale 2 L into the lungs Historical Provider, isosorbide mononitrate (IMDUR) 30 MG extended release tablet Take 1 tablet by mouth daily 05/04/19 Josef Brooks MD amLODIPine (NORVASC) 2.5 MG tablet Take 1 tablet by mouth daily 05/04/19 Josef Brooks MD glycopyrrolate-formoterol (BEVESPI AEROSPHERE) 9-4.8 MCG/ACT AERO Inhale 2 puffs into the lungs 2 times daily 05/04/19 Martin Alvarez MD albuterol (PROVENTIL) (2.5 MG/3ML) 0.083% nebulizer solution Take 3 mLs by nebulization every 6 hours as needed for Wheezing 04/26/19 Ziggy Smith MD sertraline (ZOLOFT) 50 MG tablet Take 50 mg by mouth daily Historical Provider, beclomethasone (QVAR) 80 MCG/ACT inhaler Inhale 1 puff into the lungs 2 times daily Historical Provider, meclizine (ANTIVERT) 12.5 MG tablet Take 12.5 mg by mouth 3 times daily as needed Historical Provider, tiZANidine (ZANAFLEX) 4 MG tablet Take 4 mg by mouth every 6 hours as needed Historical Provider, ibuprofen (ADVIL;MOTRIN) 800 MG tablet Take 1 tablet by mouth every 8 hours as needed for Pain 05/18/18 Marita Munoz DO LORazepam (ATIVAN) 0.5 MG tablet Take 0.5 mg by mouth every 6 hours as needed for Anxiety.. Historical Provider, atorvastatin (LIPITOR) 40 MG tablet Take 1 tablet by mouth daily 02/25/18 Zach Stephens MD aspirin EC 81 MG EC tablet Take 1 tablet by mouth daily 02/24/18 Josef Brooks MD gabapentin (NEURONTIN) 800 MG tablet Take 800 mg by mouth 3 times daily.. Historical Provider, levothyroxine (SYNTHROID) 150 MCG tablet Take 150 mcg by mouth daily Historical Provider, metoprolol succinate (TOPROL XL) 100 MG extended release tablet Take 100 mg by mouth daily Historical Provider, nitroGLYCERIN (NITROSTAT) 0.[address] 0.4 mg under the tongue as needed Historical Provider, pioglitazone (ACTOS) 15 MG tablet Take 15 mg by mouth daily Historical Provider, Incontinence Supply Disposable [facility] [place] Incontinence pads 150 per month. Please order pad that is covered by insurance plan 09/21/14 Kathie Oakley MD TRUETRACK TEST strip use as directed TO TEST BLOOD SUGAR three times a day 08/26/14 Kathie Oakley MD Blood Pressure Monitoring [facility] [place] To monitor blood pressure as needed. Please order device that is covered by insurance. 06/28/14 Kelton Zazueta, [employer] - TRUST ADMINISTRATOR . Recent Surgical History: none Assessment Peak Flow (asthma only) Predicted: na Personal Best: na PEF na % Predicted na Peak Flow : not applicable = 0 FEV1/FVC FEV1 Predicted na FEV1 na FEV1 % Predicted NA FVC NA IS volume na IBW na RR 18 Breath Sounds: clear and diminished Bronchodilator assessment at level 2 Hyperinflation assessment at level Secretion Management assessment at level [] Bronchodilator Assessment BRONCHODILATOR ASSESSMENT SCORE Score 0 1 2 3 4 5 Breath Sounds [] Patient Baseline [] No Wheeze good aeration [x] Faint, scattered wheezing, good aeration [] Expiratory Wheezing and or moderately diminished [] Insp/Exp wheeze and/or very diminished [] Insp/Exp and/ or marked distress Respiratory Rate [] Patient Baseline [] Less than 20 [x] Less than 20 [] 20-25 [] Greater than 25 [] Greater than 25 Peak flow % of Pred or PB [] NA [] Greater than 90% [] 81-90% [] 71-80% [] Less than or equal to 70% or unable to perform [] Unable due to Respiratory Distress Dyspnea re [] Patient Baseline [] No SOB [x] No SOB [] SOB on exertion [] SOB min activity [] At rest/acute e FEV% Predicted [] NA [] Above 69% [] Unable [] Above 60-69% [] Unable [] Above 50-59% [] Unable [] Above 35-49% [] Unable [] Less than 35% [] Unable [] Hyperinflation Assessment Score 1 2 3 CXR and Breath Sounds [] Clear [] No atelectasis Basilar aeration [] Atelectasis or absent basilar breath sounds Incentive Spirometry Volume (Per IBW) [] Greater than or equal to 15ml/Kg [] less than 15ml/Kg [] less than 15ml/Kg Surgery within last 2 weeks [] None or general [] Abdominal or thoracic surgery [] Abdominal or thoracic Chronic Pulmonary Historyre [] No [] Yes [] Yes [] Secretion Management Assessment Score 1 2 3 Bilateral Breath Sounds [] Occasional Rhonchi [] Scattered Rhonchi [] Course Rhonchi and/or poor aeration Sputum [] Small amount of thin secretions [] Moderate amount of viscous secretions [] Copius, Viscious Yellow/ Secretions CXR as reported by physician [] clear [] Unavailable [] Infiltrates and/or consolidation [] Unavailable [] Mucus Plugging and or lobar consolidation [] Unavailable Cough [] Strong, productive cough [] Weak productive cough [] No cough or weak non-productive cough TRE WAYNE 8:20 PM FEMALE MALE FEV1 Predicted Normal Values FEV1 Predicted Normal Values Age Height in Feet and Inches Age Height in Feet and Inches 4' 11 5' 1 5' 3 5' 5 5' 7 5' 9 5' 11 6' 1 4' 11 5' 1 5' 3 5' 5 5' 7 5' 9 5' 11 6' 1 42 - 45 2.49 2.66 2.84 3.03 3.22 3.42 3.62 3.83 42 - 45 2.82 3.03 3.26 3.49 3.72 3.96 4.22 4.47 46 - 49 2.40 2.57 2.76 2.94 3.14 3.33 3.54 3.75 46 - 49 2.70 2.92 3.14 3.37 3.61 3.85 4.10 4.36 50 - 53 2.31 2.48 2.66 2.85 3.04 3.24 3.45 3.66 50 - 53 2.58 2.80 3.02 3.25 3.49 3.73 3.98 4.24 54 - 57 2.21 2.38 2.57 2.75 2.95 3.14 3.35 3.56 54 - 57 2.46 2.67 2.89 3.12 3.36 3.60 3.85 4.11 58 - 61 2.10 2.28 2.46 2.65 2.84 3.04 3.24 3.45 58 - 61 2.32 2.54 2.76 2.99 3.23 3.47 3.72 3.98 62 - 65 1.99 2.17 2.35 2.54 2.73 2.93 3.13 3.34 62 - 65 2.19 2.40 2.62 2.85 3.09 3.33 3.58 3.84 66 - 69 1.88 2.05 2.23 2.42 2.61 2.81 3.02 3.23 66 - 69 2.04 2.26 2.48 2.71 2.95 3.19 3.44 3.70 70+ 1.82 1.99 2.17 2.36 2.55 2.75 2.95 3.16 70+ 1.97 2.19 2.41 2.64 2.87 3.12 3.37 3.62 Predicted Peak Expiratory Flow Rate Height (in) Female Height (in) Male Age 56 58 60 62 64 66 68 70 Age 20 344 357 372 387 402 417 432 446 60 62 64 66 68 70 72 74 76 25 337 352 366 381 396 411 426 441 25 447 476 505 533 562 591 619 648 677 30 329 344 359 374 389 404 419 434 30 437 466 494 523 552 580 609 638 667 35 322 337 351 366 381 396 411 426 35 426 455 484 512 541 570 598 627 657 40 314 329 344 359 374 389 404 419 40 416 445 473 502 531 559 588 617 647 45 307 322 336 351 366 381 396 411 45 405 434 463 491 520 549 577 606 636 50 299 314 329 344 359 374 389 404 50 395 424 452 481 510 538 567 596 625 55 292 307 321 336 351 366 381 396 55 384 413 442 470 499 528 556 585 615 60 284 299 314 329 344 359 374 389 60 374 403 431 460 489 517 546 575 605 65 277 292 306 321 336 351 366 381 65 363 392 421 449 478 507 535 564 594 70 269 284 299 314 329 344 359 374 70 353 382 410 439 468 496 525 554 583 75 261 274 289 305 319 334 348 364 75 344 372 400 429 458 487 515 544 573 80 253 266 282 296 312 327 342 356 80 335 362 390 419 448 [phone] * Stacy Lopez RN - 07/23/2019 3:00 PM EDT Spoke with patient's son, Javier. Updated on pt's plan of care, all questions answered. * Jose Spencer, PT - 07/23/2019 10:59 AM EDT Physical Therapy Facility/Department: [address] Initial Assessment NAME: Jonatan Olivarez : 1960 Date of Service: 07/23/2019 Jonatan Olivarez is a 58 y.o. medical history of severe COPD, smoker and chronic respiratory failure, on 2 L of nasal cannula at home oxygen presented to [place] ER by family with history of fall. Patient was apparently found by family on the floor. Unknown downtime. Initially patient was noted to be hypoxic, initial ABG showing pH of 7.32, PCO2 64.4, PO2 of 37.1, oxygen saturation 64. Patient was put on 35% high flow. Patient was also started on Levaquin becauseof allergy to Zithromax and cefaclor. Patient had CT head which was normal, chest x-ray showed mild pulmonary edema. CT PE concerning forviral pneumonia. Because of concern for COVID patient was transferred to [facility]. Discharge Recommendations: Continue to assess pending progress PT Equipment Recommendations Equipment Needed: No Assessment Body structures, Functions, Activity limitations: Decreased functional mobility ;Decreased endurance;Decreased balance Specific instructions for Next Treatment: Increase ambulation. Prognosis: Good Decision Making: Medium Complexity PT Education: PT Role;Plan of Care;General Safety REQUIRES PT FOLLOW UP: Yes Activity Tolerance Activity Tolerance: Patient limited by fatigue;Patient limited by endurance Patient Diagnosis(es): There were no encounter diagnoses. has a past medical history of Asthma, Back problem, CAD (coronary artery disease), COPD (chronic obstructive pulmonary disease) (HCC), Depression, Diabetes mellitus (HCC), Edema, H/O cardiac catheterization, Hernia of abdominal wall, History of cardiovascular stress test, History of echocardiogram,History of stress test, Hx of blood clots, Hypertension, Hypothyroidism, Leg pain, bilateral, and Wears partial dentures. has a past surgical history that includes Cholecystectomy; Hysterectomy; femoral bypass; Cardiac surgery; Cardiac catheterization; vascular surgery; Aorta surgery (05/2016); and Cardiac catheterization (Left, 02/25/2018). Restrictions Restrictions/Precautions Restrictions/Precautions: Fall Risk, Up as Tolerated, Contact Precautions Required Braces or Orthoses?: No Position Activity Restriction Other position/activity restrictions: 2L O2 at baseline Vision/Hearing Vision: Within Functional Limits Hearing: Within functional limits Subjective General Patient assessed for rehabilitation services?: Yes Family / Caregiver Present: No Follows Commands: Within Functional Limits General Comment Comments: Pt in bed on 2L 02. Subjective Subjective: pt would like to get up to chair. Pain Screening Patient Currently in Pain: Yes Pain Assessment Pain Assessment: 0-10 Pain Level: 10 Pain Type: Acute pain;Chronic pain Pain Location: Abdomen Vital Signs Patient Currently in Pain: Yes Pre Treatment Pain Screening Intervention List: Patient able to continue with treatment Orientation Orientation Overall Orientation Status: Within Functional Limits Social/Functional History Social/Functional History Lives With: Son Type of Home: House Home Layout: One level Home Access: Level entry Bathroom Shower/Tub: Tub/Shower unit Bathroom Toilet: Standard Bathroom Accessibility: Accessible ADL Assistance: Independent Homemaking Assistance: Independent Homemaking Responsibilities: No Ambulation Assistance: Independent Transfer Assistance: Independent Active Outside Salesperson: Yes Mode of Transportation: Car Occupation: On disability Cognition Cognition Arousal/Alertness: Appropriate responses to stimuli Following Commands: Follows one step commands with repetition Safety Judgement: Decreased awareness of need for safety Initiation: Requires cues for some Objective AROM RLE (degrees) RLE AROM: WFL AROM LLE (degrees) LLE AROM : WFL AROM RUE (degrees) RUE AROM : WFL AROM LUE (degrees) LUE AROM : WFL Strength RLE Strength RLE: WFL Strength LLE Strength LLE: WFL Strength RUE Strength RUE: WFL Strength LUE Strength LUE: WFL Motor Control Gross Motor?: WFL Sensation Overall Sensation Status: WFL Bed mobility Supine to Sit: Stand by assistance Scooting: Stand by assistance Transfers Sit to Stand: Moderate Assistance Stand to sit: Moderate Assistance Bed to Chair: Moderate assistance Ambulation Ambulation?: Yes Ambulation 1 Surface: level tile Device: Rolling Walker Other Apparatus: O2 Assistance: Moderate assistance Quality of Gait: Unsteady. Distance: Pt ambulated a few feet from bed to chair. Stairs/Curb Stairs?: No Balance Sitting - Static: Good;- Sitting - Dynamic: Fair;+ Standing - Static: Good;- Standing - Dynamic: Fair;+ Comments: Standing balance with rolling walker. BUE/LE AROM x 10 reps sitting in chair. Plan Plan Times per week: 5-6x/week Specific instructions for Next Treatment: Increase ambulation. Current Treatment Recommendations: Strengthening, Functional Mobility Training, Transfer Training, Gait Training, Safety Education & Training, Endurance Training Safety Devices Type of devices: Gait belt, Call light within reach, Chair alarm in place, Left in chair, Nurse notified AM-PAC Score AM-PAC Inpatient Mobility without Stair Climbing Raw Score : 15 (07/23/191053) AM-PAC Inpatient without Stair Climbing T-Scale Score : 43.03 (07/23/191053) Mobility Inpatient CMS 0-100% Score: 47.43 (07/23/191053) Mobility Inpatient without Stair CMS G-Code Modifier : CK (07/23/191053) Goals Short term goals Time Frame for Short term goals: 14 visits Short term goal 1: Independent bed mobility Short term goal 2: Independent transfers Short term goal 3: Independent ambulation without device 300 ft Short term goal 4: Pt to tolerate 30 minutes of activity to improve endurance. Patient Goals Patient goals : Go home MALINI Therapy Time Individual Concurrent Group Co-treatment Time In 0918 Time Out 0940 Minutes 22 Timed Code Treatment Minutes: 9 Minutes JOSE SPENCER PT * Rosa Stephen OT - 07/23/2019 10:40 AM EDT Occupational Therapy Occupational Therapy Initial Assessment Date: 07/23/2019 Patient Name: Jonatan Olivarez : 1960 Date of Service: 07/23/2019 Discharge Recommendations: Further therapy recommended at discharge. Assessment Performance deficits / Impairments: Decreased functional mobility ;Decreased ADL status;Decreased high-level IADLs;Decreased endurance;Decreased safe awareness;Decreased strength Assessment: Patient is expected to need acute OT services to address functional deficits impacting performance and safety with ADLs and functional tasks. Pt demonstrates decreased endurance with activity, affecting performance and safety with functional tasks. OT services are warranted to maximize safety and independent for safe return home. Prognosis: Good Decision Making: Medium Complexity Patient Education: OT POC, purpose of evaluation, importance of OOB activity, purpose of getting upinto the chair, hand placement for transfers, need for assistance to complete mobility tasks - goodreturn REQUIRES OT FOLLOW UP: Yes Activity Tolerance Activity Tolerance: Patient Tolerated treatment well Safety Devices Safety Devices in place: Yes Type of devices: All fall risk precautions in place;Left in chair;Call light within reach;Chair alarm in place;Nurse notified;Gait belt Restraints Initially in place: No Patient Diagnosis(es): There were no encounter diagnoses. has a past medical history of Asthma, Back problem, CAD (coronary artery disease), COPD (chronic obstructive pulmonary disease) (HCC), Depression, Diabetes mellitus (HCC), Edema, H/O cardiac catheterization, Hernia of abdominal wall, History of cardiovascular stress test, History of echocardiogram,History of stress test, Hx of blood clots, Hypertension, Hypothyroidism, Leg pain, bilateral, and Wears partial dentures. has a past surgical history that includes Cholecystectomy; Hysterectomy; femoral bypass; Cardiac surgery; Cardiac catheterization; vascular surgery; Aorta surgery (05/2016); and Cardiac catheterization (Left, 02/25/2018). Restrictions Restrictions/Precautions Restrictions/Precautions: Fall Risk, Up as Tolerated, Contact Precautions Required Braces or Orthoses?: No Position Activity Restriction Other position/activity restrictions: 2L O2 at baseline Subjective General Patient assessed for rehabilitation services?: Yes Family / Caregiver Present: No General Comment Comments: RN ok'd patient for OT/PT evaluation. Pt agreeable and pleasant throughout. Patient Currently in Pain: Yes Pain Assessment Pain Assessment: 0-10 Pain Level: 10 Pain Type: Acute pain;Chronic pain Pain Location: Abdomen Vital Signs Patient Currently in Pain: Yes Social/Functional History Social/Functional History Lives With: Son Type of Home: House Home Layout: One level Home Access: Level entry Bathroom Shower/Tub: Tub/Shower unit Bathroom Toilet: Standard Bathroom Accessibility: Accessible ADL Assistance: Independent Homemaking Assistance: Independent Homemaking Responsibilities: No Ambulation Assistance: Independent Transfer Assistance: Independent Active Outside Salesperson: Yes Mode of Transportation: Car Occupation: On disability Objective Vision: Within Functional Limits Hearing: Within functional limits Orientation Overall Orientation Status: Impaired Orientation Level: Disoriented to time;Oriented to place;Oriented to situation;Oriented to person Balance Sitting Balance: Stand by assistance(EOB for ~3-4 minutes ) Standing Balance: Contact guard assistance Functional Mobility Functional - Mobility Device: Rolling Walker Activity: Other Assist Level: Minimal assistance Functional Mobility Comments: from EOB to bedside recliner; decreased safety awareness ADL Feeding: Independent Grooming: Independent(washing face sitting upright in recliner at end of session ) UE Bathing: Increased time to complete;Setup;Contact guard assistance LE Bathing: Moderate assistance;Increased time to complete;Setup UE Dressing: Setup;Increased time to complete;Contact guard assistance(donning gown on backside ) LE Dressing: Moderate assistance;Increased time to complete;Setup Toileting: Moderate assistance;Increased time to complete Tone RUE RUE Tone: Normotonic Tone LUE LUE Tone: Normotonic Coordination Movements Are Fluid And Coordinated: Yes Bed mobility Supine to Sit: Stand by assistance Scooting: Stand by assistance Comment: retired to bedside recliner at end of session Transfers Sit to stand: Minimal assistance Stand to sit: Minimal assistance Transfer Comments: for safety; cues for hand placement and transfer safety Cognition Overall Cognitive Status: Exceptions Arousal/Alertness: Appropriate responses to stimuli Following Commands: Follows one step commands with repetition Safety Judgement: Decreased awareness of need for safety Initiation: Requires cues for some Sensation Overall Sensation Status: WFL LUE AROM : WFL Left Hand AROM: WFL RUE AROM : WFL Right Hand AROM: WFL LUE Strength Gross LUE Strength: Exceptions to WFL L Shoulder Flex: 4/5 L Elbow Flex: 4/5 L Elbow Ext: 4-/5 L Hand General: 4/5 RUE Strength Gross RUE Strength: Exceptions to WFL R Shoulder Flex: 4/5 R Elbow Flex: 4/5 R Elbow Ext: 4-/5 R Hand General: 4/5 Plan Plan Times per week: 3-4x/wk AM-PAC Score AM-PAC Inpatient Daily Activity Raw Score: 17 (07/23/19 1040) AM-PAC Inpatient ADL T-Scale Score : 37.26 (07/23/19 1040) ADL Inpatient CMS 0-100% Score: 50.11 (07/23/19 1040) ADL Inpatient [facility] G-Code Modifier : CK (07/23/19 1040) Goals Short term goals Time Frame for Short term goals: Patient will, by discharge Short term goal 1: demonstrate UB self-cares independently Short term goal 2: demonstrate LB self-cares at Mod I using AE PRN Short term goal 3: demonstrate functional transfers/mobility at supervision using LRD to engage in ADLs safely Short term goal 4: demonstrate ~10 min of dynamic standing tolerance using LRD to engage in ADLs atSBA Short term goal 5: demonstrate implementation of energy conservation strategies into ADL tasks <2 verbal cues Therapy Time Individual Concurrent Group Co-treatment Time In 0916 Time Out 0937 Minutes 21 Timed Code Treatment Minutes: 9 Minutes Rosa Stephen OTR/L * Sera Moreira MD - 07/23/2019 7:18 AM EDT Critical Care Team - Daily Progress Note Date and time: 07/23/2019 7:18 AM Patient's name: Jonatan Henrywick Patient's account/billing number: [id number] Patient's Date of : 1960 Age: 58 y.o. Date of Admission: 07/18/2019 1:26 AM Length of stay during current admission: 5 Primary Care Physician: Vahid Nagy APRN - TRUST ADMINISTRATOR ICU Attending Physician: Dr. Austen Alvarez Code Status: Full Code Reason for ICU admission: Acute Hypoxic respiratory failure Patient is a 58-year-old female with past medical history of chronic respiratory failure, COPD, hypertension, CAD, PVD, diastolic heart failure, type 2 diabetes mellitus who initially presented to [place] ED with altered mental status, hypoxia and hypercapnia and was intubated at [place]. CT PE negative for PE but concerning for viral pneumonia due to bilateral interstitial infiltrates.She was initially admitted to COVID ICU. COVID-19 testing was negative along with viral resp PCR panel. Received 1 dose of Levaquin and later discontinued. ID started patient on fluconazole for abdominal wall fungal infection. She was also started on diuretics. SUBJECTIVE: OVERNIGHT EVENTS: No acute events reported.Extubated yesterday. She refused BiPAP overnight as she reported not beingable to sleep with it on. Patient seen and examined bedside this a.m. Alert, oriented to self and place obeying commands. On 2 L nasal cannula. Hemodynamics are stable. She is making good amounts of urine. Sugars stable. AWAKE & FOLLOWING COMMANDS: [] No [x] Yes CURRENT VENTILATION STATUS: [] Ventilator [] BIPAP [x] Nasal Cannula [] Room Air IF INTUBATED, ET TUBE MARKING AT LOWER LIP: SECRETIONS Amount: [x] Small [] Moderate [] Large [] None Color: [x] White [] Colored [] Bloody SEDATION: RAAS Score: [] Propofol gtt [] Versed gtt [] Ativan gtt [] No Sedation PARALYZED: [x] No [] Yes DIARRHEA: [x] No [] Yes (C. Difficile status: [] positive [] negative [] pending) VASOPRESSORS: [x] No [] Yes If yes - [] Levophed [] Dopamine [] Vasopressin [] Dobutamine [] Phenylephrine [] Epinephrine CENTRAL LINES: [] No [x] Yes (Date of Insertion: 07/18/2019) If yes - [x] Right IJ [] Left IJ [] Right Femoral [] Left Femoral [] Right Subclavian [] Left Subclavian UREÑA'S CATHETER: [x] No [] Yes (Date of Insertion: ) URINE OUTPUT: [x] Good [] Low [] Anuric Review of Systems Constitutional: Negative for appetite change, chills and fever. HENT: Negative for sinus pressure, sneezing and sore throat. Respiratory: Positive for cough. Negative for chest tightness, shortness of breath and wheezing. Cardiovascular: Negative for chest pain, palpitations and leg swelling. Gastrointestinal: Positive for abdominal pain and constipation. Negative for diarrhea, nausea and vomiting. Genitourinary: Negative for decreased urine volume, dysuria and urgency. Musculoskeletal: Negative for joint swelling, myalgias and neck pain. Neurological: Negative for light-headedness, numbness and headaches. Psychiatric/Behavioral: Positive for decreased concentration and sleep disturbance. Negative for confusion. The patient is not nervous/anxious. OBJECTIVE: VITAL SIGNS: BP (!) 152/55 Pulse 73 Temp 98.4 F (36.9 C) (Oral) Resp 12 Ht 5' 1 (1.549 m) Wt 190 lb (86.2 kg) SpO2 95% BMI 35.90 kg/m Tmax over 24 hours: Temp (24hrs), Av.6 F (37 C), Min:98.1 F (36.7 C), Max:99.1 F (37.3 C) Patient Vitals for the past 8 hrs: BP Temp Temp src Pulse Resp SpO2 Weight 07/23/19 0700 (!) 152/55 73 12 95 % 07/23/19 0600 (!) 141/117 71 14 96 % 190 lb (86.2 kg) 07/23/19 0500 (!) 150/53 65 12 95 % 07/23/19 0400 (!) 143/57 98.4 F (36.9 C) Oral 75 23 95 % 07/23/19 0300 (!) 142/51 63 11 96 % 07/23/19 0200 (!) 137/54 62 11 97 % 07/23/19 0100 (!) 140/49 64 12 97 % 07/23/19 0000 (!) 146/49 98.1 F (36.7 C) Oral 64 13 96 % Intake/Output Summary (Last 24 hours) at 07/23/2019 0718 Last data filed at 07/23/2019 0400 Gross per 24 hour Intake 938.88 ml Output 1120 ml Net -181.12 ml Date 07/23/19 0000 - 07/23/19 2359 Shift 8287-3587 0384-3176 4047-5088 24 Hour Total INTAKE I.V.(mL/kg) 288.9(3.4) 288.9(3.4) Shift Total(mL/kg) 288.9(3.4) 288.9(3.4) OUTPUT Urine(mL/kg/hr) 400 400 Shift Total(mL/kg) 400(4.6) 400(4.6) Weight (kg) 86.2 86.2 86.2 86.2 Wt Readings from Last 3 Encounters: 07/23/19 190 lb (86.2 kg) 07/17/19 180 lb (81.6 kg) 06/15/19 180 lb (81.6 kg) Body mass index is 35.9 kg/m . PHYSICAL EXAM: Constitutional: Alert and oriented to self and place, not in obvious distress EENT: PERRLA, EOMI, sclera clear, anicteric, oropharynx clear Neck: Supple, symmetrical, trachea midline, no adenopathy, thyroid symmetric, no jvd skin normal Respiratory: Bilateral breath sounds present. No wheezes or rales. Cardiovascular: regular rate and rhythm, normal S1, S2, no murmur noted and 2+ pulses throughout Abdomen: Healed midline infraumbilical scar, reducible incisional hernia, soft, nontender, nondistended, or organomegaly NEUROLOGIC: Intubated and sedated. Following commands off sedation Extremities: peripheral pulses normal, no clubbing or cyanosis. Nil peripheral edema present SKIN: normal coloration and turgor MEDICATIONS: Scheduled Meds: insulin lispro 0-6 Units Subcutaneous 4x Daily AC & HS famotidine 20 mg Oral BID metoprolol tartrate 25 mg Oral BID methylPREDNISolone 40 mg Intravenous Q12H [Held by provider] furosemide 40 mg Intravenous Daily ciprofloxacin 400 mg Intravenous Q12H amLODIPine 10 mg Oral Daily sodium chloride flush 10 mL Intravenous 2 times per day enoxaparin 40 mg Subcutaneous Daily aspirin EC 81 mg Oral Daily atorvastatin 40 mg Oral Daily clopidogrel 75 mg Oral Daily levothyroxine 150 mcg Oral Daily miconazole Topical BID ipratropium-albuterol 1 ampule Inhalation Q6H fluconazole 200 mg Per NG tube Daily Continuous Infusions: dextrose PRN Meds: albuterol, 2.5 mg, As Directed RT PRN hydrALAZINE, 10 mg, Q4H PRN fentanNYL, 50 mcg, Q1H PRN sodium chloride flush, 10 mL, PRN acetaminophen, 650 mg, Q6H PRN Or acetaminophen, 650 mg, Q6H PRN polyethylene glycol, 17 g, Daily PRN promethazine, 12.5 mg, Q6H PRN Or ondansetron, 4 mg, Q6H PRN glucose, 15 g, PRN dextrose, 12.5 g, PRN glucagon (rDNA), 1 mg, PRN dextrose, 100 mL/hr, PRN SUPPORT DEVICES: [x] Ventilator [] BIPAP [] Nasal Cannula [] Room Air VENT SETTINGS (Comprehensive) (if applicable): PRVC mode, FiO2 35 %, PEEP 5, Respiratory Rate 18, Tidal Volume 380 mL Lab Results Component Value Date PHART 7.321 07/17/2019 [id number] 64.4 07/17/2019 PO2ART 37.1 07/17/2019 [id number] 32.5 07/17/2019 [id number] 33 07/18/2019 [id number] 64.5 07/17/2019 FIO2 NOT REPORTED 07/18/2019 Lactic Acid: Lab Results Component Value Date LACTA NOT REPORTED 07/19/2019 LACTA 1.2 04/22/2019 LACTA 0.6 04/21/2019 DATA: Complete Blood Count: Recent Labs 07/21/19 0411 07/21/19 1355 07/22/19 031 WBC 10.9 -- 12.1* HGB 14.0 14.6 14.9 MCV 87.3 -- 91.2 PLT 270 -- 257 RBC 5.19* -- 5.36* HCT 45.3 47.3* 48.9* MCH 27.0 -- 27.8 MCHC 30.9 -- 30.5 RDW 15.7* -- 15.9* MPV 9.4 -- 9.7 PT/INR: Lab Results Component Value Date PROTIME 10.6 07/17/2019 PROTIME 10.1 03/11/2011 INR 1.0 07/17/2019 PTT: Lab Results Component Value Date APTT 25.4 06/24/2013 Basal Metabolic Profile: Recent Labs 07/21/19 0411 07/22/19 0311 07/23/19 0313 NA 138 141 139 K 3.6* 4.1 4.1 BUN 33* 29* 30* CREATININE 0.50 0.47* 0.35* CL 97* 103 101 CO2 29 23 25 Magnesium: Lab Results Component Value Date MG 1.9 07/18/2019 Phosphorus: No results found for: PHOS S. Calcium: Recent Labs 07/23/19312 CALCIUM 8.9 S. Ionized Calcium:No results for input(s): IONCA in the last 72 hours. Urinalysis: Lab Results Component Value Date NITRU NEGATIVE 07/18/2019 COLORU DARK YELLOW 07/18/2019 PHUR 5.0 07/18/2019 WBCUA 5 TO 10 07/18/2019 RBCUA 2 TO 5 07/18/2019 MUCUS 1+ 07/18/2019 TRICHOMONAS NOT REPORTED 07/18/2019 YEAST NOT REPORTED 07/18/2019 BACTERIA NOT REPORTED 07/18/2019 SPECGRAV 1.041 07/18/2019 LEUKOCYTESUR SMALL 07/18/2019 UROBILINOGEN Normal 07/18/2019 BILIRUBINUR NEGATIVE Verified by ictotest. 07/18/2019 GLUCOSEU NEGATIVE 07/18/2019 KETUA NEGATIVE 07/18/2019 AMORPHOUS NOT REPORTED 07/18/2019 CARDIAC ENZYMES: No results for input(s): CKMB, CKMBINDEX, TROPONINI in the last 72 hours. Invalid input(s): CKTOTAL;3 BNP: No results for input(s): BNP in the last 72 hours. LFTS No results for input(s): ALKPHOS, ALT, AST, BILITOT, BILIDIR, LABALBU in the last 72 hours. AMYLASE/LIPASE/AMMONIA No results for input(s): AMYLASE, LIPASE, AMMONIA in the last 72 hours. Last 3 Blood Glucose: Recent Labs 07/21/19 0411 07/22/19 0311 07/23/19 0313 GLUCOSE 169* 150* 144* HgBA1c: Lab Results Component Value Date LABA1C 7.0 12/17/2011 TSH: Lab Results Component Value Date TSH 0.95 07/19/2019 ANEMIA STUDIES No results for input(s): LABIRON, TIBC, FERRITIN, [id number], FOLATE, OCCULTBLD in the last 72 hours. Cultures during this admission: Blood cultures: [] None drawn [] Negative [] Positive (Details: ) Urine Culture: [] None drawn [] Negative [] Positive (Details: ) Sputum Culture: [] None drawn [] Negative [] Positive (Details: ) Endotracheal aspirate: [] None drawn [] Negative [] Positive (Details: ) ASSESSMENT: Principal Problem: Acute on chronic respiratory failure with hypercapnia (HCC) Active Problems: CAD S/P percutaneous coronary angioplasty Tobacco abuse COPD (chronic obstructive pulmonary disease) (HCC) Diabetes mellitus (HCC) Hypertension COVID-19 AMS (altered mental status) E. coli UTI Resolved Problems: * No resolved hospital problems. * PLAN: 1. Acute on chronic hypoxic hypercapnic respiratory failure simply secondary to AE-COPD Improving. Extubated on 07/21/2021. Change steroids to prednisone 40 mg p.o. daily. Continue DuoNeb. 2. E. coli UTI. Continue ciprofloxacin IV x 5 days. ID following 3. Hypertension. Continue Lopressor 25 mg twice daily, Norvasc 10 mg daily 4. History of CAD S/P stents and PVD S/P aortobifem bypass and left femoral- popliteal bypass. Continue aspirin and Plavix. 5. Chronic Diastolic heart failure. Stable echo in 2018 with EF 60%. No diuresis. 6. Abdominal cellulitis secondary to fungal infection. Continue Diflucan x 7 days. ID following. 7. Type 2 diabetes mellitus. Controlled. Continue low-dose insulin scale 8. Diet. Tolerating full liquid diet. Advance as tolerated 9. Lovenox for DVT prophylaxis. 10. GI prophylaxis. Not indicated. Dc lansoprazole. 11. Discontinued ureña. 12. OK to transfer to [facility] monitored bed. Sera Moreira M.D. PGY 2 Department of Internal Medicine/ Critical care [facility]) 07/23/2019, 7:18 AM Associated attestation - Martin Alvarez MD - 07/23/2019 12:42 PM EDT Attending Physician Statement I have discussed the case of Jonatan Olivarez, including pertinent history and exam findings with the resident/fellow/RABBET OPERATOR/PA. I have seen and examined the patient and the sims elements of the encounter have been performed by me. I agree with the assessment, plan and orders as documented by the resident/fellow/RABBET OPERATOR/PA With changes made to the note as needed. Pt was seen during rounds. Review of Systems: In addition to the pertinent positives and negatives as stated within HPI and the review of systemsas documented in their notes, all other systems were reviewed when able to and are reported negative. Patient on 2 L oxygen by nasal cannula Did not need any BiPAP last night Physical therapy and Occupational Therapy to evaluate and manage patient Blood sugars are acceptable Change corticosteroids to prednisone Discontinue Pepcid Patient is on Lovenox Patient will be transferred to [facility] monitored bed We will follow the patient from pulmonary standpoint Martin Alvarez 07/23/2019 12:41 PM * Swati Hassan RN - 07/22/2019 9:10 PM EDT Attempted to contact patient's sister for update. Call went straight to voicemail. * Donna James RCP - 07/22/2019 6:20 PM EDT BRONCHOSPASM/BRONCHOCONSTRICTION [x] IMPROVE AERATION/BREATH SOUNDS [x] ADMINISTER BRONCHODILATOR THERAPY APPROPRIATE [x] ASSESS BREATH SOUNDS [x] IMPLEMENT AEROSOL/MDI PROTOCOL [x] PATIENT EDUCATION NEEDED * Donna James RCP - 07/22/2019 1:55 PM EDT Order obtained for extubation. SpO2 of 100% on 35% FiO2. Patient extubated and placed on 4 liters/min via nasal cannula. Post extubation SpO2 is 98% with HR 82 bpm and RR 19 breaths/min. Patient had strong cough that was non-productive. Extubation Well tolerated by patient.. Breath Sounds: clear, diminished Donna James 1:56 PM * Donna James RCP - 07/22/2019 1:30 PM EDT Tested patient for a ETT leak for possible extubation. After switching her to PRVC and increasing her volume, deep sx, and re-positioning the tube, no leak was heard when air was let out. * Sera Moreira MD - 07/22/2019 1:18 PM EDT Critical Care Team - Daily Progress Note Date and time: 07/22/2019 1:18 PM Patient's name: Jonatan Henrywick Patient's account/billing number: [id number] Patient's Date of : 1960 Age: 58 y.o. Date of Admission: 07/18/2019 1:26 AM Length of stay during current admission: 4 Primary Care Physician: Vahid Nagy, HILDA - TRUST ADMINISTRATOR ICU Attending Physician: Dr. Austen Alvarez Code Status: Full Code Reason for ICU admission: Acute Hypoxic respiratory failure Patient is a 58-year-old female with past medical history of chronic respiratory failure, COPD, hypertension, CAD, PVD, diastolic heart failure, type 2 diabetes mellitus who initially presented to [place] ED with altered mental status, hypoxia and hypercapnia and was intubated at [place]. CT PE negative for PE but concerning for viral pneumonia due to bilateral interstitial infiltrates.She was initially admitted to COVID ICU. COVID-19 testing was negative along with viral resp PCR panel. Received 1 dose of Levaquin and later discontinued. ID started patient on fluconazole for abdominal wall fungal infection. She was also started on diuretics. SUBJECTIVE: OVERNIGHT EVENTS: No acute events reported. Patient seen and examined bedside Intubated and sedated with propofol Weaning well but no cuff leak. Following commands off sedation Hemodynamics acceptable. SBP elevated. Heart rate in 60s to 70s, normal sinus rhythm Urine output adequate. AWAKE & FOLLOWING COMMANDS: [] No [x] Yes CURRENT VENTILATION STATUS: [x] Ventilator [] BIPAP [] Nasal Cannula [] Room Air IF INTUBATED, ET TUBE MARKING AT LOWER LIP: cms SECRETIONS Amount: [] Small [x] Moderate [] Large [] None Color: [x] White [] Colored [] Bloody SEDATION: RAAS Score: [x] Propofol gtt [] Versed gtt [] Ativan gtt [] No Sedation PARALYZED: [x] No [] Yes DIARRHEA: [x] No [] Yes (C. Difficile status: [] positive [] negative [] pending) VASOPRESSORS: [x] No [] Yes If yes - [] Levophed [] Dopamine [] Vasopressin [] Dobutamine [] Phenylephrine [] Epinephrine CENTRAL LINES: [] No [x] Yes (Date of Insertion: 07/18/2019) If yes - [x] Right IJ [] Left IJ [] Right Femoral [] Left Femoral [] Right Subclavian [] Left Subclavian UREÑA'S CATHETER: [] No [x] Yes (Date of Insertion: 07/17/19) URINE OUTPUT: [x] Good [] Low [] Anuric OBJECTIVE: VITAL SIGNS: BP (!) 160/60 Pulse 73 Temp 98.8 F (37.1 C) (Oral) Resp 14 Ht 5' 1 (1.549 m) Wt 192 lb 0.3 oz (87.1 kg) SpO2 96% BMI 36.28 kg/m Tmax over 24 hours: Temp (24hrs), Av.8 F (37.1 C), Min:98.2 F (36.8 C), Max:99.3 F (37.4 C) Patient Vitals for the past 8 hrs: BP Temp Temp src Pulse Resp SpO2 07/22/19 1200 98.8 F (37.1 C) Oral 07/22/19 1122 73 14 96 % 07/22/19 1000 (!) 160/60 78 14 95 % 07/22/19 0900 (!) 162/58 86 14 94 % 07/22/19 0807 82 14 95 % 07/22/19 0800 (!) 177/63 99.1 F (37.3 C) Oral 82 18 96 % 07/22/19 0759 18 97 % 07/22/19 0758 (!) 171/56 07/22/19 0749 75 18 95 % 07/22/19 0700 (!) 142/51 67 18 92 % 07/22/19 0630 (!) 140/47 67 18 91 % 07/22/19 0600 (!) 171/56 79 17 95 % Intake/Output Summary (Last 24 hours) at 07/22/2019 1318 Last data filed at 07/22/2019 1200 Gross per 24 hour Intake 2506 ml Output 985 ml Net 1521 ml Date 07/22/19 0000 - 07/22/19 2359 Shift 6428-0460 9309-5085 1558-7279 24 Hour Total INTAKE I.V.(mL/kg) 470(5.4) 260(3) 730(8.4) NG/GT(mL/kg) 286(3.3) 245(2.8) 531(6.1) Shift Total(mL/kg) 756(8.7) 505(5.8) 1261(14.5) OUTPUT Urine(mL/kg/hr) 300(0.4) 335 635 Shift Total(mL/kg) 300(3.4) 335(3.8) 635(7.3) Weight (kg) 87.1 87.1 87.1 87.1 Wt Readings from Last 3 Encounters: 07/22/19 192 lb 0.3 oz (87.1 kg) 07/17/19 180 lb (81.6 kg) 06/15/19 180 lb (81.6 kg) Body mass index is 36.28 kg/m . PHYSICAL EXAM: Constitutional: Intubated and sedated EENT: PERRLA, EOMI, sclera clear, anicteric, oropharynx clear Neck: Supple, symmetrical, trachea midline, no adenopathy, thyroid symmetric, no jvd skin normal Respiratory: Bilateral breath sounds present. No wheezes or rales. Cardiovascular: regular rate and rhythm, normal S1, S2, no murmur noted and 2+ pulses throughout Abdomen: Healed midline infraumbilical scar, reducible incisional hernia, soft, nontender, nondistended, or organomegaly NEUROLOGIC: Intubated and sedated. Following commands off sedation Extremities: peripheral pulses normal, no clubbing or cyanosis. Nil peripheral edema present SKIN: normal coloration and turgor MEDICATIONS: Scheduled Meds: [START ON 07/23/2019] lansoprazole 30 mg Per G Tube QAM AC metoprolol tartrate 25 mg Oral BID methylPREDNISolone 40 mg Intravenous Q12H [Held by provider] furosemide 40 mg Intravenous Daily ciprofloxacin 400 mg Intravenous Q12H amLODIPine 10 mg Oral Daily sodium chloride flush 10 mL Intravenous 2 times per day enoxaparin 40 mg Subcutaneous Daily aspirin EC 81 mg Oral Daily atorvastatin 40 mg Oral Daily clopidogrel 75 mg Oral Daily levothyroxine 150 mcg Oral Daily miconazole Topical BID insulin lispro 0-6 Units Subcutaneous Q6H chlorhexidine 15 mL Mouth/Throat BID ipratropium-albuterol 1 ampule Inhalation Q6H fluconazole 200 mg Per NG tube Daily Continuous Infusions: dextrose propofol 10 mcg/kg/min (07/22/19 1047) PRN Meds: hydrALAZINE, 10 mg, Q4H PRN fentanNYL, 50 mcg, Q1H PRN sodium chloride flush, 10 mL, PRN acetaminophen, 650 mg, Q6H PRN Or acetaminophen, 650 mg, Q6H PRN polyethylene glycol, 17 g, Daily PRN promethazine, 12.5 mg, Q6H PRN Or ondansetron, 4 mg, Q6H PRN glucose, 15 g, PRN dextrose, 12.5 g, PRN glucagon (rDNA), 1 mg, PRN dextrose, 100 mL/hr, PRN SUPPORT DEVICES: [x] Ventilator [] BIPAP [] Nasal Cannula [] Room Air VENT SETTINGS (Comprehensive) (if applicable): PRVC mode, FiO2 35 %, PEEP 5, Respiratory Rate 18, Tidal Volume 380 mL Lab Results Component Value Date PHART 7.321 07/17/2019 [id number] 64.4 07/17/2019 PO2ART 37.1 07/17/2019 [id number] 32.5 07/17/2019 [id number] 33 07/18/2019 [id number] 64.5 07/17/2019 FIO2 NOT REPORTED 07/18/2019 Lactic Acid: Lab Results Component Value Date LACTA NOT REPORTED 07/19/2019 LACTA 1.2 04/22/2019 LACTA 0.6 04/21/2019 DATA: Complete Blood Count: Recent Labs 07/20/19 0144 07/21/19 0411 07/21/19 1355 07/22/19 031 WBC 10.9 10.9 -- 12.1* HGB 13.8 14.0 14.6 14.9 MCV 86.9 87.3 -- 91.2 PLT 298 270 -- 257 RBC 5.13* 5.19* -- 5.36* HCT 44.6 45.3 47.3* 48.9* MCH 26.9 27.0 -- 27.8 MCHC 30.9 30.9 -- 30.5 RDW 15.5* 15.7* -- 15.9* MPV 9.4 9.4 -- 9.7 PT/INR: Lab Results Component Value Date PROTIME 10.6 07/17/2019 PROTIME 10.1 03/11/2011 INR 1.0 07/17/2019 PTT: Lab Results Component Value Date APTT 25.4 06/24/2013 Basal Metabolic Profile: Recent Labs 07/20/19 0144 07/21/19 0411 07/22/19 0311 NA 136 138 141 K 3.9 3.6* 4.1 BUN 30* 33* 29* CREATININE 0.67 0.50 0.47* CL 98 97* 103 CO2 26 29 23 Magnesium: Lab Results Component Value Date MG 1.9 07/18/2019 Phosphorus: No results found for: PHOS S. Calcium: Recent Labs 07/22/19310 CALCIUM 8.7 S. Ionized Calcium:No results for input(s): IONCA in the last 72 hours. Urinalysis: Lab Results Component Value Date NITRU NEGATIVE 07/18/2019 COLORU DARK YELLOW 07/18/2019 PHUR 5.0 07/18/2019 WBCUA 5 TO 10 07/18/2019 RBCUA 2 TO 5 07/18/2019 MUCUS 1+ 07/18/2019 TRICHOMONAS NOT REPORTED 07/18/2019 YEAST NOT REPORTED 07/18/2019 BACTERIA NOT REPORTED 07/18/2019 SPECGRAV 1.041 07/18/2019 LEUKOCYTESUR SMALL 07/18/2019 UROBILINOGEN Normal 07/18/2019 BILIRUBINUR NEGATIVE Verified by ictotest. 07/18/2019 GLUCOSEU NEGATIVE 07/18/2019 KETUA NEGATIVE 07/18/2019 AMORPHOUS NOT REPORTED 07/18/2019 CARDIAC ENZYMES: No results for input(s): CKMB, CKMBINDEX, TROPONINI in the last 72 hours. Invalid input(s): CKTOTAL;3 BNP: No results for input(s): BNP in the last 72 hours. LFTS No results for input(s): ALKPHOS, ALT, AST, BILITOT, BILIDIR, LABALBU in the last 72 hours. AMYLASE/LIPASE/AMMONIA No results for input(s): AMYLASE, LIPASE, AMMONIA in the last 72 hours. Last 3 Blood Glucose: Recent Labs 07/20/19 0144 07/21/19 0411 07/22/19 0311 GLUCOSE 190* 169* 150* HgBA1c: Lab Results Component Value Date LABA1C 7.0 12/17/2011 TSH: Lab Results Component Value Date TSH 0.95 07/19/2019 ANEMIA STUDIES No results for input(s): LABIRON, TIBC, FERRITIN, [id number], FOLATE, OCCULTBLD in the last 72 hours. Cultures during this admission: Blood cultures: [] None drawn [] Negative [] Positive (Details: ) Urine Culture: [] None drawn [] Negative [] Positive (Details: ) Sputum Culture: [] None drawn [] Negative [] Positive (Details: ) Endotracheal aspirate: [] None drawn [] Negative [] Positive (Details: ) ASSESSMENT: Principal Problem: Acute on chronic respiratory failure with hypercapnia (HCC) Active Problems: CAD S/P percutaneous coronary angioplasty Tobacco abuse COPD (chronic obstructive pulmonary disease) (HCC) Diabetes mellitus (HCC) Hypertension COVID-19 AMS (altered mental status) E. coli UTI Resolved Problems: * No resolved hospital problems. * PLAN: 1. Acute on chronic hypoxic hypercapnic respiratory failure simply secondary to AE-COPD Patient intubated PRVC/18/380/. Spontaneous breathing trials Sedated with propofol. Sedation holiday as appropriate Will try extubation today if patient tolerates weaning and has cuff leak. No pneumonia, antibiotics discontinued after 1 dose of Levaquin COVID-19 test negative. RVP negative. Legionella and strep pneumonia negative Monitor strict I/O's Wean steroids, Solumedrol 40 mg Q12h. Continue DuoNeb. 2. E. coli UTI. Sensitive to ciprofloxacin. Continue ciprofloxacin IV x 5 days. ID following 3. Hypertension. Lopressor 25 mg twice daily. Continue Norvasc 10 mg daily 4. History of CAD S/P stents and PVD S/P aortobifem bypass and left femoral- popliteal bypass. Hold aspirin and Plavix due to bloody NG output 5. Chronic Diastolic heart failure. Stable echo in 2018 with EF 60%. No diuresis. 6. Abdominal cellulitis secondary to fungal infection. Continue Diflucan x 7 days. ID following. 7. Type 2 diabetes mellitus. Controlled. Continue low-dose insulin scale 8. Diet. Tolerating tube feeds. 9. Lovenox for DVT prophylaxis. 10. GI prophylaxis. Switch from Protonix to lansoprazole via OG tube. OG tube bleeding resolved. 11. Line and Ureña care Sera Moreira M.D. PGY 2 Department of Internal Medicine/ Critical care [facility]) 07/22/2019, 1:18 PM Associated attestation - Martin Alvarez MD - 07/22/2019 7:33 PM EDT Attending Physician Statement I have discussed the case of Jonatan Olivarez, including pertinent history and exam findings with the resident/fellow/RABBET OPERATOR/PA. I have seen and examined the patient and the sims elements of the encounter have been performed by me. I agree with the assessment, plan and orders as documented by the resident/fellow/RABBET OPERATOR/PA With changes made to the note as needed. Pt was seen during rounds. Review of Systems: In addition to the pertinent positives and negatives as stated within HPI and the review of systemsas documented in their notes, all other systems were reviewed when able to and are reported negative. Patient tolerated weaning Was extubated on tube changer No stridor Use BiPAP as needed Continue nasal cannula oxygen Tolerating tube feeding NG tube was removed We will start oral diet if tolerated Leukocytosis likely worse Could be related to corticosteroids Blood sugars are acceptable Patient with no more upper GI bleeding Anemia stable On Protonix and Lovenox We will change to oral lansoprazole Decrease laboratory frequency Total critical care time caring for this patient with life threatening, unstable organ failure, including direct patient contact, management of life support systems, review of data including imaging and labs, discussions with other team members and physicians at least 30 Min so far today, excludingprocedures. Martin Alvarez 07/22/2019 7:32 PM * Darling Rashid RD, LD - 07/22/2019 12:05 PM EDT Nutrition Assessment (Enteral Nutrition) Type and Reason for Visit: Reassess Nutrition Recommendations: Continue current tube feeding at this time. Will continue to monitor TF tolerance/adequacy. Nutrition Assessment: Pt remains on vent at this time. Low Calorie, High Protein tube feeding currently at 40 mL/hr with minimal residuals. No BM noted yet. Pt has glycolax ordered PRN. Malnutrition Assessment: Malnutrition Status: At risk for malnutrition Context: Acute illness or injury Findings of the 6 clinical characteristics of malnutrition (Minimum of 2 out of 6 clinical characteristics is required to make the diagnosis of moderate or severe Protein Calorie Malnutrition based on AND/ASPEN Guidelines): 1. Energy Intake-Unable to assess VAMP LINER; currently meeting greater than 75% of estimated nutrition needs with tube feeding. 2. Weight Loss-5% loss or greater, x 7 mo 3. Fat Loss-No significant subcutaneous fat loss, 4. Muscle Loss-No significant muscle mass loss, 5. Fluid Accumulation-Mild fluid accumulation, Generalized 6. 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 Signs and symptoms: as evidenced by NPO status due to medical condition, Nutrition support - EN Objective Information: Current Nutrition Therapies: Oral Diet Orders: NPO Tube Feeding (TF) Orders: Formula: Low Calorie, High Protein Rate (ml/hr):40 mL/hr Volume (ml/day): 960 mL/day Duration: Continuous Current TF & Flush Orders Provides: 960 kcal and 84 g pro/day Goal TF & Flush Orders Provides: 960 kcal and 84 g pro/day Additional Calories: Propofol at 4.7 mL/gy=210 kcal/day Anthropometric Measures: Ht: 5' 1 (154.9 cm) Current Body Wt: 192 lb 0.3 oz (87.1 kg) Admission Body Wt: 173 lb (78.5 kg) Weight Change: 6% wt loss x 7 mo per EMR [place] Body Wt: 105 lb (47.6 kg), % [place] Body 165% adm/ideal BMI Classification: BMI 30.0 - 34.9 Obese Class I(32.3) Nutrition Interventions: Continue current Tube Feeding Continued Inpatient Monitoring, Education Not Indicated Nutrition Evaluation: Evaluation: Goal achieved Goals: Start diet vs nutrition support within 24-72 hrs Monitoring: TF Intake, TF Tolerance, Weight, Pertinent Labs Contact Number: [phone] * Donna James RCP - 07/22/2019 8:07 AM EDT 07/22/19 0807 Vent Information Vent Mode CPAP Pressure Support 8 cmH20 FiO2 35 % SpO2 95 % SpO2/FiO2 ratio 271.43 Sensitivity 3 PEEP/CPAP 8 Started wean at 0807 * Nasima Alvarez MD - 07/21/2019 11:12 AM EDT Critical Care Team - Daily Progress Note Date and time: 07/21/2019 11:12 AM Patient's name: Jonatan Biggsck Patient's account/billing number: [id number] Patient's Date of : 1960 Age: 58 y.o. Date of Admission: 07/18/2019 1:26 AM Length of stay during current admission: 3 Primary Care Physician: Vahid Nagy, INS[employer] - TRUST ADMINISTRATOR ICU Attending Physician: Dr. Alvarez Code Status: Full Code Reason for ICU admission: Acute Hypoxic respiratory failure Patient is a 58-year-old female with past medical history of chronic respiratory failure, COPD, hypertension, CAD, PVD, diastolic heart failure, type 2 diabetes mellitus who initially presented to [facility] with altered mental status, hypoxia and hypercapnia and was intubated at [facility]. CT PE negative for PE but concerning for viral pneumonia because of bilateral interstitial infiltrates. She was initially admitted to COVID ICU, COVID-19 testing was negative along with RVP. Received 1 dose of Levaquin and later discontinued. ID started patient on fluconazole for abdominal wall fungal infection. She was also started on diuresis. SUBJECTIVE: OVERNIGHT EVENTS: Patient had bloody NG output about 200 to 250 mL yesterday. Tube feeds were not started Total NG output 660 mL last 24 hours No more bleeding through OG Patient seen and examined bedside Intubated and sedated with propofol Well on CPAP since 10 AM Following commands off sedation Blood pressure better controlled 160s to 170s Heart rate in 50s to 60s, normal sinus rhythm Urine output adequate AWAKE & FOLLOWING COMMANDS: [] No [x] Yes CURRENT VENTILATION STATUS: [x] Ventilator [] BIPAP [] Nasal Cannula [] Room Air IF INTUBATED, ET TUBE MARKING AT LOWER LIP: cms SECRETIONS Amount: [] Small [x] Moderate [] Large [] None Color: [x] White [] Colored [] Bloody SEDATION: RAAS Score: [x] Propofol gtt [] Versed gtt [] Ativan gtt [] No Sedation PARALYZED: [x] No [] Yes DIARRHEA: [x] No [] Yes (C. Difficile status: [] positive [] negative [] pending) VASOPRESSORS: [x] No [] Yes If yes - [] Levophed [] Dopamine [] Vasopressin [] Dobutamine [] Phenylephrine [] Epinephrine CENTRAL LINES: [] No [x] Yes (Date of Insertion: 07/18/2019) If yes - [x] Right IJ [] Left IJ [] Right Femoral [] Left Femoral [] Right Subclavian [] Left Subclavian UREÑA'S CATHETER: [] No [x] Yes (Date of Insertion: 07/17/19) URINE OUTPUT: [x] Good [] Low [] Anuric OBJECTIVE: VITAL SIGNS: BP (!) 183/60 Pulse 72 Temp 99 F (37.2 C) (Oral) Resp 12 Ht 5' 1 (1.549 m) Wt 189 lb 13.1 oz (86.1 kg) SpO2 98% BMI 35.87 kg/m Tmax over 24 hours: Temp (24hrs), Av.8 F (37.1 C), Min:98.4 F (36.9 C), Max:99.1 F (37.3 C) Patient Vitals for the past 8 hrs: BP Temp Temp src Pulse Resp SpO2 Weight 07/21/19 1100 (!) 183/60 72 12 98 % 07/21/19 1030 (!) 165/74 72 12 98 % 07/21/19 1012 80 20 96 % 07/21/19 1000 (!) 174/62 72 18 97 % 07/21/19 0900 (!) 167/57 63 18 07/21/19 0800 (!) 200/73 99 F (37.2 C) Oral 74 19 99 % 07/21/19 0742 59 18 97 % 07/21/19 0739 18 97 % 07/21/19 0722 18 97 % 07/21/19 0700 (!) 162/57 60 18 07/21/19 0600 (!) 165/57 59 18 07/21/19 0500 (!) 155/58 58 18 97 % 07/21/19 0400 (!) 148/66 98.4 F (36.9 C) Oral 58 18 96 % 189 lb 13.1 oz (86.1 kg) 07/21/19 0313 59 18 95 % Intake/Output Summary (Last 24 hours) at 07/21/2019 1112 Last data filed at 07/21/2019 0800 Gross per 24 hour Intake 1145 ml Output 1925 ml Net -780 ml Date 07/21/19 0000 - 07/21/19 2359 Shift 3227-1966 4230-0186 2488-3437 24 Hour Total INTAKE I.V.(mL/kg) 534(6.2) 142(1.6) 676(7.9) Shift Total(mL/kg) 534(6.2) 142(1.6) 676(7.9) OUTPUT Urine(mL/kg/hr) 305(0.4) 100 405 Emesis/NG output(mL/kg) 35(0.4) 100(1.2) 135(1.6) Shift Total(mL/kg) 340(3.9) 200(2.3) 540(6.3) Weight (kg) 86.1 86.1 86.1 86.1 Wt Readings from Last 3 Encounters: 07/21/19 189 lb 13.1 oz (86.1 kg) 07/17/19 180 lb (81.6 kg) 06/15/19 180 lb (81.6 kg) Body mass index is 35.87 kg/m . PHYSICAL EXAM: Constitutional: Intubated and sedated EENT: PERRLA, EOMI, sclera clear, anicteric, oropharynx clear Neck: Supple, symmetrical, trachea midline, no adenopathy, thyroid symmetric, no jvd skin normal Respiratory: Bilateral breath sounds present. No wheezes or rails. Moderate amount of yellowish secretions present Cardiovascular: regular rate and rhythm, normal S1, S2, no murmur noted and 2+ pulses throughout Abdomen: soft, nontender, nondistended, no masses or organomegaly NEUROLOGIC: Intubated and sedated. Following commands off sedation Extremities: peripheral pulses normal, no clubbing or cyanosis. Bilateral peripheral edema present SKIN: normal coloration and turgor MEDICATIONS: Scheduled Meds: pantoprazole 40 mg Intravenous BID And sodium chloride (PF) 10 mL Intravenous BID metoprolol tartrate 12.5 mg Oral BID methylPREDNISolone 40 mg Intravenous Q12H [Held by provider] furosemide 40 mg Intravenous Daily ciprofloxacin 400 mg Intravenous Q12H amLODIPine 10 mg Oral Daily sodium chloride flush 10 mL Intravenous 2 times per day enoxaparin 40 mg Subcutaneous Daily [Held by provider] aspirin EC 81 mg Oral Daily atorvastatin 40 mg Oral Daily [Held by provider] clopidogrel 75 mg Oral Daily levothyroxine 150 mcg Oral Daily miconazole Topical BID insulin lispro 0-6 Units Subcutaneous Q6H chlorhexidine 15 mL Mouth/Throat BID ipratropium-albuterol 1 ampule Inhalation Q6H fluconazole 200 mg Per NG tube Daily Continuous Infusions: dextrose propofol 25 mcg/kg/min (07/21/19 0955) PRN Meds: fentanNYL, 50 mcg, Q1H PRN sodium chloride flush, 10 mL, PRN acetaminophen, 650 mg, Q6H PRN Or acetaminophen, 650 mg, Q6H PRN polyethylene glycol, 17 g, Daily PRN promethazine, 12.5 mg, Q6H PRN Or ondansetron, 4 mg, Q6H PRN labetalol, 10 mg, Q4H PRN glucose, 15 g, PRN dextrose, 12.5 g, PRN glucagon (rDNA), 1 mg, PRN dextrose, 100 mL/hr, PRN SUPPORT DEVICES: [x] Ventilator [] BIPAP [] Nasal Cannula [] Room Air VENT SETTINGS (Comprehensive) (if applicable): PRVC mode, FiO2 40 %, PEEP 8, Respiratory Rate 18, Tidal Volume 380 mL Lab Results Component Value Date PHART 7.321 07/17/2019 BUO7OME 64.4 07/17/2019 PO2ART 37.1 07/17/2019 [id number] 32.5 07/17/2019 [id number] 33 07/18/2019 [id number] 64.5 07/17/2019 FIO2 NOT REPORTED 07/18/2019 Lactic Acid: Lab Results Component Value Date LACTA NOT REPORTED 07/19/2019 LACTA 1.2 04/22/2019 LACTA 0.6 04/21/2019 DATA: Complete Blood Count: Recent Labs 07/19/1951307/20/1914307/21/19 0411 WBC 9.9 10.9 10.9 HGB 14.6 13.8 14.0 MCV 88.7 86.9 87.3 PLT 307 298 270 RBC 5.38* 5.13* 5.19* HCT 47.7* 44.6 45.3 MCH 27.1 26.9 27.0 MCHC 30.6 30.9 30.9 RDW 15.2* 15.5* 15.7* MPV 9.5 9.4 9.4 PT/INR: Lab Results Component Value Date PROTIME 10.6 07/17/2019 PROTIME 10.1 03/11/2011 INR 1.0 07/17/2019 PTT: Lab Results Component Value Date APTT 25.4 06/24/2013 Basal Metabolic Profile: Recent Labs 07/19/1951307/20/1914307/21/19 0411 NA 137 136 138 K 4.0 3.9 3.6* BUN 23* 30* 33* CREATININE 0.71 0.67 0.50 CL 97* 98 97* CO2 24 26 29 Magnesium: Lab Results Component Value Date MG 1.9 07/18/2019 Phosphorus: No results found for: PHOS S. Calcium: Recent Labs 07/21/19 041 CALCIUM 8.8 S. Ionized Calcium:No results for input(s): IONCA in the last 72 hours. Urinalysis: Lab Results Component Value Date NITRU NEGATIVE 07/18/2019 COLORU DARK YELLOW 07/18/2019 PHUR 5.0 07/18/2019 WBCUA 5 TO 10 07/18/2019 RBCUA 2 TO 5 07/18/2019 MUCUS 1+ 07/18/2019 TRICHOMONAS NOT REPORTED 07/18/2019 YEAST NOT REPORTED 07/18/2019 BACTERIA NOT REPORTED 07/18/2019 SPECGRAV 1.041 07/18/2019 LEUKOCYTESUR SMALL 07/18/2019 UROBILINOGEN Normal 07/18/2019 BILIRUBINUR NEGATIVE Verified by ictotest. 07/18/2019 GLUCOSEU NEGATIVE 07/18/2019 KETUA NEGATIVE 07/18/2019 AMORPHOUS NOT REPORTED 07/18/2019 CARDIAC ENZYMES: No results for input(s): CKMB, CKMBINDEX, TROPONINI in the last 72 hours. Invalid input(s): CKTOTAL;3 BNP: No results for input(s): BNP in the last 72 hours. LFTS No results for input(s): ALKPHOS, ALT, AST, BILITOT, BILIDIR, LABALBU in the last 72 hours. AMYLASE/LIPASE/AMMONIA No results for input(s): AMYLASE, LIPASE, AMMONIA in the last 72 hours. Last 3 Blood Glucose: Recent Labs 07/19/19 0514 07/20/19 0144 07/21/19 0411 GLUCOSE 178* 190* 169* HgBA1c: Lab Results Component Value Date LABA1C 7.0 12/17/2011 TSH: Lab Results Component Value Date TSH 0.95 07/19/2019 ANEMIA STUDIES No results for input(s): LABIRON, TIBC, FERRITIN, [id number], FOLATE, OCCULTBLD in the last 72 hours. Cultures during this admission: Blood cultures: [] None drawn [] Negative [] Positive (Details: ) Urine Culture: [] None drawn [] Negative [] Positive (Details: ) Sputum Culture: [] None drawn [] Negative [] Positive (Details: ) Endotracheal aspirate: [] None drawn [] Negative [] Positive (Details: ) ASSESSMENT: Principal Problem: Acute on chronic respiratory failure with hypercapnia (HCC) Active Problems: CAD S/P percutaneous coronary angioplasty Tobacco abuse COPD (chronic obstructive pulmonary disease) (HCC) Diabetes mellitus (HCC) Hypertension COVID-19 AMS (altered mental status) E. coli UTI Resolved Problems: * No resolved hospital problems. * PLAN: 1. Acute on chronic hypoxic hypercapnic respiratory failure simply secondary to AE-COPD Patient intubated PRVC/18/380/8/40. Spontaneous breathing trials Sedated with propofol. Sedation holiday as appropriate Try extubation today if patient tolerates weaning No pneumonia, antibiotics discontinued after 1 dose of Levaquin COVID-19 test negative. RVP negative. Legionella and strep pneumonia negative Discontinue Lasix. Monitor strict I/O's Wean steroids, Solumedrol 40 mg Q12h. Continue DuoNeb. 2. E. coli UTI. Sensitive to ciprofloxacin. Continue ciprofloxacin IV x 5 days. ID following 3. Hypertension. Lopressor 25 mg twice daily. Increase Norvasc 10 mg daily 4. History of CAD S/P stents and PVD S/P aortobifem bypass and left femoral- popliteal bypass. Hold aspirin and Plavix due to bloody NG output 5. Acute on Chronic Diastolic heart failure. Echo in 2018 with EF 60%. No diuresis. 6. Abdominal cellulitis secondary to fungal infection. Continue Diflucan x 7 days. ID following 7. Type 2 diabetes mellitus. Controlled. Low-dose insulin scale 8. Will start tube feeds if patient is not extubated today 9. Lovenox for DVT prophylaxis 10. Pepcid switch to Protonix because of bloody NG output. Monitor hemoglobin. 11. Line and Ureña care Nasima Alvarez M.D. Department of Internal Medicine/ Critical care [facility], [facility]) 07/21/2019, 11:12 AM Associated attestation - Martin Alvarez MD - 07/21/2019 2:36 PM EDT Attending Physician Statement I have discussed the case of Jonatan Olivarez, including pertinent history and exam findings with the resident/fellow/RABBET OPERATOR/PA. I have seen and examined the patient and the sims elements of the encounter have been performed by me. I agree with the assessment, plan and orders as documented by the resident/fellow/RABBET OPERATOR/PA With changes made to the note as needed. Pt was seen during rounds. Review of Systems: In addition to the pertinent positives and negatives as stated within HPI and the review of systemsas documented in their notes, all other systems were reviewed when able to and are reported negative. Patient weaning on the ventilator If an awake enough to protect airway, we will extubate her Supplement potassium for hypokalemia Anemia stable We will start tube feeding if she fails weaning trial and requires to be ventilated On Lovenox and Protonix We will stop Lasix Total critical care time caring for this patient with life threatening, unstable organ failure, including direct patient contact, management of life support systems, review of data including imaging and labs, discussions with other team members and physicians at least 30 Min so far today, excludingprocedures. Martin Alvarez 07/21/2019 2:35 PM * Darling Rashid RD, LD - 07/20/2019 12:55 PM EDT Nutrition Assessment (Enteral Nutrition) Type and Reason for Visit: Reassess, Consult(TF ordering/management ) Nutrition Recommendations: Start Tube Feeding-suggest Low Иван, High Pro formula with goal rate of 40 mL/hr while on propofol at current rate. Will monitor TF tolerance/adequacy. Nutrition Assessment: Pt remains on vent. TF ordered to start today - consulted for management. Malnutrition Assessment: Malnutrition Status: At risk for malnutrition Context: Acute illness or injury Findings of the 6 clinical characteristics of malnutrition (Minimum of 2 out of 6 clinical characteristics is required to make the diagnosis of moderate or severe Protein Calorie Malnutrition based on AND/ASPEN Guidelines): 1. Energy Intake-Unable to assess, 2. Weight Loss-5% loss or greater, (x 7 mo) 3. Fat Loss-No significant subcutaneous fat loss, 4. Muscle Loss-No significant muscle mass loss, 5. Fluid Accumulation-Mild fluid accumulation, Generalized 6. [employer] Strength-Not measured Nutrition Risk Level: High Nutrition Needs: Estimated Daily Total Kcal: 1985-9144 kcals/d Estimated Daily Protein (g): 60-100 g/d Nutrition Diagnosis: Problem: Inadequate oral intake Etiology: related to Impaired respiratory function-inability to consume food ? Signs and symptoms: as evidenced by NPO status due to medical condition Objective Information: Current Nutrition Therapies: Oral Diet Orders: NPO Tube Feeding (TF) Orders: Additional Calories: Propofol at 11.8 ml/hr =312 kcal/day Anthropometric Measures: Ht: 5' 1 (154.9 cm) Current Body Wt: 179 lb 3.7 oz (81.3 kg) Admission Body Wt: 173 lb (78.5 kg) Weight Change: 6% wt loss x 7 mo per EMR [place] Body Wt: 105 lb (47.6 kg), % [place] Body 165% adm/ideal BMI Classification: BMI 30.0 - 34.9 Obese Class I(32.3) Nutrition Interventions: Start Tube Feeding-suggest Low Иван, High Pro formula with goal rate of 40 mL/hr while on propofol at current rate. Continued Inpatient Monitoring, Education Not Indicated Nutrition Evaluation: Evaluation: Progressing toward goals Goals: Start diet vs nutrition support within 24-72 hrs Monitoring: TF Intake, TF Tolerance, I&O, Weight, Pertinent Labs Contact Number: [phone] * Nasima Alvarez MD - 07/20/2019 9:53 AM EDT Critical Care Team - Daily Progress Note Date and time: 07/20/2019 9:53 AM Patient's name: Jonatan Biggsck Patient's account/billing number: [id number] Patient's Date of : 1960 Age: 58 y.o. Date of Admission: 07/18/2019 1:26 AM Length of stay during current admission: 2 Primary Care Physician: Vahid Nagy APRN - TRUST ADMINISTRATOR ICU Attending Physician: Dr. Alvarez Code Status: Full Code Reason for ICU admission: Acute Hypoxic respiratory failure Patient is a 58-year-old female with past medical history of chronic respiratory failure, COPD, hypertension, CAD, PVD, diastolic heart failure, type 2 diabetes mellitus who initially presented to [facility] with altered mental status, hypoxia and hypercapnia and was intubated at [facility]. CT PE negative for PE but concerning for viral pneumonia because of bilateral interstitial infiltrates. She was initially admitted to COVID ICU, COVID-19 testing was negative along with RVP. Received 1 dose of Levaquin and later discontinued. ID started patient on fluconazole for abdominal wall fungal infection. She was also started on diuresis. SUBJECTIVE: OVERNIGHT EVENTS: Patient seen and examined bedside Intubated and sedated with propofol 50 Follows commands off sedation Blood pressure high in 180s. Heart rate in 90s. Not got any medications this a.m. Urine output good AWAKE & FOLLOWING COMMANDS: [] No [x] Yes CURRENT VENTILATION STATUS: [x] Ventilator [] BIPAP [] Nasal Cannula [] Room Air IF INTUBATED, ET TUBE MARKING AT LOWER LIP: cms SECRETIONS Amount: [] Small [x] Moderate [] Large [] None Color: [x] White [] Colored [] Bloody SEDATION: RAAS Score: [x] Propofol gtt [] Versed gtt [] Ativan gtt [] No Sedation PARALYZED: [x] No [] Yes DIARRHEA: [x] No [] Yes (C. Difficile status: [] positive [] negative [] pending) VASOPRESSORS: [x] No [] Yes If yes - [] Levophed [] Dopamine [] Vasopressin [] Dobutamine [] Phenylephrine [] Epinephrine CENTRAL LINES: [] No [x] Yes (Date of Insertion: 07/18/2019) If yes - [x] Right IJ [] Left IJ [] Right Femoral [] Left Femoral [] Right Subclavian [] Left Subclavian UREÑA'S CATHETER: [] No [x] Yes (Date of Insertion: 07/17/19) URINE OUTPUT: [x] Good [] Low [] Anuric OBJECTIVE: VITAL SIGNS: BP (!) 180/70 Pulse 91 Temp 98.4 F (36.9 C) (Oral) Resp 17 Ht 5' 1 (1.549 m) Wt 173 lb 8oz (78.7 kg) SpO2 96% BMI 32.78 kg/m Tmax over 24 hours: Temp (24hrs), Av.5 F (36.9 C), Min:98 F (36.7 C), Max:99.1 F (37.3 C) Patient Vitals for the past 8 hrs: BP Temp Temp src Pulse Resp SpO2 07/20/19 0851 91 17 07/20/19 0850 92 18 07/20/19 0849 93 20 07/20/19 0848 93 18 07/20/19 0845 93 17 07/20/19 0844 (!) 180/70 94 19 07/20/19 0842 93 20 07/20/19 0747 75 21 96 % 07/20/19 0746 19 96 % 07/20/19 0700 (!) 152/63 61 22 95 % 07/20/19 0600 (!) 153/65 63 22 95 % 07/20/19 0500 (!) 151/62 64 22 95 % 07/20/19 0400 (!) 146/63 65 22 95 % 07/20/19 0322 98.4 F (36.9 C) Oral 07/20/19 0300 (!) 144/57 61 22 95 % 07/20/19 0251 22 95 % 07/20/19 0200 (!) 147/64 61 22 95 % Intake/Output Summary (Last 24 hours) at 07/20/2019 0953 Last data filed at 07/20/2019 0539 Gross per 24 hour Intake 1503 ml Output 1300 ml Net 203 ml Date 07/20/19 0000 - 07/20/19 2359 Shift 7952-5807 0029-2116 6792-0439 24 Hour Total INTAKE I.V.(mL/kg) 1443(18.3) 1443(18.3) Shift Total(mL/kg) 1443(18.3) 1443(18.3) OUTPUT Urine(mL/kg/hr) 250(0.4) 250 Shift Total(mL/kg) 250(3.2) 250(3.2) Weight (kg) 78.7 78.7 78.7 78.7 Wt Readings from Last 3 Encounters: 07/18/19 173 lb 8 oz (78.7 kg) 07/17/19 180 lb (81.6 kg) 06/15/19 180 lb (81.6 kg) Body mass index is 32.78 kg/m . PHYSICAL EXAM: Constitutional: Intubated and sedated EENT: PERRLA, EOMI, sclera clear, anicteric, oropharynx clear Neck: Supple, symmetrical, trachea midline, no adenopathy, thyroid symmetric, no jvd skin normal Respiratory: Bilateral breath sounds present. No wheezes or rails. Moderate amount of yellowish secretions present Cardiovascular: regular rate and rhythm, normal S1, S2, no murmur noted and 2+ pulses throughout Abdomen: soft, nontender, nondistended, no masses or organomegaly NEUROLOGIC: Intubated and sedated. Following commands off sedation Extremities: peripheral pulses normal, no clubbing or cyanosis. Bilateral peripheral edema present SKIN: normal coloration and turgor MEDICATIONS: Scheduled Meds: amLODIPine 5 mg Oral Daily methylPREDNISolone 40 mg Intravenous Q12H furosemide 40 mg Intravenous BID sodium chloride flush 10 mL Intravenous 2 times per day enoxaparin 40 mg Subcutaneous Daily aspirin EC 81 mg Oral Daily atorvastatin 40 mg Oral Daily clopidogrel 75 mg Oral Daily levothyroxine 150 mcg Oral Daily miconazole Topical BID insulin lispro 0-6 Units Subcutaneous Q6H chlorhexidine 15 mL Mouth/Throat BID famotidine (PEPCID) injection 20 mg Intravenous BID metoprolol tartrate 25 mg Oral BID ipratropium-albuterol 1 ampule Inhalation Q6H fluconazole 200 mg Per NG tube Daily Continuous Infusions: dextrose propofol 50 mcg/kg/min (07/20/19 0809) PRN Meds: fentanNYL, 50 mcg, Q1H PRN sodium chloride flush, 10 mL, PRN acetaminophen, 650 mg, Q6H PRN Or acetaminophen, 650 mg, Q6H PRN polyethylene glycol, 17 g, Daily PRN promethazine, 12.5 mg, Q6H PRN Or ondansetron, 4 mg, Q6H PRN labetalol, 10 mg, Q4H PRN glucose, 15 g, PRN dextrose, 12.5 g, PRN glucagon (rDNA), 1 mg, PRN dextrose, 100 mL/hr, PRN SUPPORT DEVICES: [x] Ventilator [] BIPAP [] Nasal Cannula [] Room Air VENT SETTINGS (Comprehensive) (if applicable): PRVC mode, FiO2 40 %, PEEP 8, Respiratory Rate 18, Tidal Volume 380 mL Lab Results Component Value Date PHART 7.321 07/17/2019 [id number] 64.4 07/17/2019 PO2ART 37.1 07/17/2019 [id number] 32.5 07/17/2019 [id number] 33 07/18/2019 [id number] 64.5 07/17/2019 FIO2 NOT REPORTED 07/18/2019 Lactic Acid: Lab Results Component Value Date LACTA NOT REPORTED 07/19/2019 LACTA 1.2 04/22/2019 LACTA 0.6 04/21/2019 DATA: Complete Blood Count: Recent Labs 07/17/19 1740 07/19/19 0514 07/20/19 0144 WBC 9.6 9.9 10.9 HGB 13.7 14.6 13.8 MCV 87.5 88.7 86.9 PLT 277 307 298 RBC 4.96 5.38* 5.13* HCT 43.4 47.7* 44.6 MCH 27.6 27.1 26.9 MCHC 31.6 30.6 30.9 RDW 15.7* 15.2* 15.5* MPV 9.0 9.5 9.4 PT/INR: Lab Results Component Value Date PROTIME 10.6 07/17/2019 PROTIME 10.1 03/11/2011 INR 1.0 07/17/2019 PTT: Lab Results Component Value Date APTT 25.4 06/24/2013 Basal Metabolic Profile: Recent Labs 07/18/19 0522 07/19/19 0514 07/20/19 0144 NA 146* 137 136 K 3.4* 4.0 3.9 BUN 12 23* 30* CREATININE 0.64 0.71 0.67 CL 96* 97* 98 CO2 25 24 26 Magnesium: Lab Results Component Value Date MG 1.9 07/18/2019 Phosphorus: No results found for: PHOS S. Calcium: Recent Labs 07/20/19 0144 CALCIUM 8.4* S. Ionized Calcium:No results for input(s): IONCA in the last 72 hours. Urinalysis: Lab Results Component Value Date NITRU NEGATIVE 07/18/2019 COLORU DARK YELLOW 07/18/2019 PHUR 5.0 07/18/2019 WBCUA 5 TO 10 07/18/2019 RBCUA 2 TO 5 07/18/2019 MUCUS 1+ 07/18/2019 TRICHOMONAS NOT REPORTED 07/18/2019 YEAST NOT REPORTED 07/18/2019 BACTERIA NOT REPORTED 07/18/2019 SPECGRAV 1.041 07/18/2019 LEUKOCYTESUR SMALL 07/18/2019 UROBILINOGEN Normal 07/18/2019 BILIRUBINUR NEGATIVE Verified by ictotest. 07/18/2019 GLUCOSEU NEGATIVE 07/18/2019 KETUA NEGATIVE 07/18/2019 AMORPHOUS NOT REPORTED 07/18/2019 CARDIAC ENZYMES: No results for input(s): CKMB, CKMBINDEX, TROPONINI in the last 72 hours. Invalid input(s): CKTOTAL;3 BNP: No results for input(s): BNP in the last 72 hours. LFTS Recent Labs 07/17/19 1740 ALKPHOS 93 ALT 11 AST 12 BILITOT 0.26* LABALBU 3.7 AMYLASE/LIPASE/AMMONIA Recent Labs 07/17/19 1906 AMMONIA 29 Last 3 Blood Glucose: Recent Labs 07/17/19 1740 07/18/19 0522 07/19/19 0514 07/20/19 0144 GLUCOSE 126* 149* 178* 190* HgBA1c: Lab Results Component Value Date LABA1C 7.0 12/17/2011 TSH: Lab Results Component Value Date TSH 0.95 07/19/2019 ANEMIA STUDIES Recent Labs 07/18/19 0522 FERRITIN 28 Cultures during this admission: Blood cultures: [] None drawn [] Negative [] Positive (Details: ) Urine Culture: [] None drawn [] Negative [] Positive (Details: ) Sputum Culture: [] None drawn [] Negative [] Positive (Details: ) Endotracheal aspirate: [] None drawn [] Negative [] Positive (Details: ) ASSESSMENT: Principal Problem: Acute on chronic respiratory failure with hypercapnia (HCC) Active Problems: CAD S/P percutaneous coronary angioplasty Tobacco abuse COPD (chronic obstructive pulmonary disease) (HCC) Diabetes mellitus (HCC) Hypertension COVID-19 AMS (altered mental status) E. coli UTI Resolved Problems: * No resolved hospital problems. * PLAN: 1. Acute on chronic respiratory failure simply secondary to COPD/ fluid overload Patient intubated PRVC/18/380/. Spontaneous breathing trials Sedated with propofol 50. Wean off and give sedation holiday No pneumonia, antibiotics discontinued after 1 dose of Levaquin COVID-19 test negative. RVP negative. Legionella and strep pneumonia negative Continue Lasix 40 mg daily. Monitor strict I/O's History of COPD. Wean steroids, Solumedrol 40 mg Q12h. Continue DuoNeb. 2. E. coli UTI. Sensitive to ciprofloxacin. Start ciprofloxacin IV. ID following 3. Hypertension. Continue Lopressor 25 mg twice daily. Start Norvasc 5 mg daily 4. History of CAD S/P stents and PVD S/P aortobifem bypass and left femoral- popliteal bypass. Continue aspirin, Plavix and statin 5. Acute on Chronic Diastolic heart failure. Echo in 2018 with EF 60%. New diuresis. 6. Abdominal cellulitis secondary to fungal infection. Continue Diflucan x 7 days. ID following 7. Type 2 diabetes mellitus. Controlled. Low-dose insulin scale 8. Will start tube feeds if patient is not extubated today 9. Lovenox for DVT prophylaxis 10. Pepcid for GI prophylaxis 11. Line and Ureña care Nasima Alvarez M.D. Department of Internal Medicine/ Critical care [facility]) 07/20/2019, 9:54 AM Associated attestation - Martin Alvarez MD - 07/20/2019 4:32 PM EDT Attending Physician Statement I have discussed the case of Jonatan Olivarez, including pertinent history and exam findings with the resident/fellow/RABBET OPERATOR/PA. I have seen and examined the patient and the sims elements of the encounter have been performed by me. I agree with the assessment, plan and orders as documented by the resident/fellow/RABBET OPERATOR/PA With changes made to the note as needed. Pt was seen during rounds. Review of Systems: In addition to the pertinent positives and negatives as stated within HPI and the review of systemsas documented in their notes, all other systems were reviewed when able to and are reported negative. On 40% oxygen with a PEEP of 8 Blood sugars are acceptable On ciprofloxacin for UTI Triglycerides are acceptable We will decrease corticosteroids Start tube feeding On Pepcid and Lovenox Total critical care time caring for this patient with life threatening, unstable organ failure, including direct patient contact, management of life support systems, review of data including imaging and labs, discussions with other team members and physicians at least 30 Min so far today, excludingprocedures. Martin Alvarez 07/20/2019 4:22 PM * Louise Doll APRN - CNP - 07/20/2019 8:20 AM EDT Patient's chart reviewed and no significant events over the past night. Patient to be transferred to MICU Rm 120. Report was called to Dr. Alvarez - Resident Critical Care. Attending Dr. Tipton hasnot seen this patient as of this a.m. and Dr. Alvarez is aware of this. Patient to be transferred at this time. * Deion Buck RN - 07/19/2019 11:04 PM EDT Lesvia, sister, called and notified that patient is to be transferred to MICU. Requests to be called again by day shift. No questions or concerns at this time. * John Bobby MD - 07/19/2019 5:03 PM EDT [facility] - Initial Consult Note COVID 19 Patient Today's Date and Time: 07/19/2019, 5:03 PM Impression : COVID 19 Suspect Test came negative 07-19-19 Respiratory failure ES COPD DM II CAD PAD/PVD Neuropathy Macrolide and Cephalosporin allergy Skin fold fungal infection Recommendations: Viral PCR negative Stop Levaquin Continue Fluconazole 200 mg po/pt daily x 7 days Monitor clinical progress Ok to transfer out of COVID Unit Medical Decision Making/Summary/Discussion:07/19/2019 Patient admitted with suspected COVID 19 infection PMH ES COPD, continues to smoke, CAD, PAD, DMII Presented to OSH with AMS, found to be hypoxic. CT chest showed concern for viral pneumonia. Transferred to [facility] and developed respiratory failure requiring intubation COVID testing negative ID will sign off Infection Control Recommendations [place] Precautions Antimicrobial Stewardship Recommendations Discontinuation of therapy Coordination of Outpatient Care: Estimated Length of IV antimicrobials:TBD Patient will need Midline Catheter Insertion: TBD Patient will need PICC line Insertion: No Patient will need: Home IV , Infusion Center, SNF, LTAC:TBD Patient will need outpatient wound care:No Chief complaint/reason for consultation: Concern for COVID infection History of Present Illness: Jonatan Olivarez is a 58 y.o.-year-old female who was initially admitted on 07/18/2019. Patient seen at the request of Dr. Baeza INITIAL HISTORY: Patient presented to [facility] ER on 07-16 after a fall and confusion. Per the notes, pt had fallen earlier in the day. Later in the afternoon she was acting confused and the family called 911. PMH is significant for ES COPD, on home O2 and continues to smoke. DMII with severe neuropathy, CADs/p multiple stents, Diastolic CHF and severe PAD s/p multiple bypass surgeries. On arrival to the ED pt was hypoxic with a PO2 of 37 on ABG and SaO2 of 64%. She was placed on 35% high flow O2 and started on Levaquin because of Zithromax and Cephalosporin allergies. CT brain - wnl CXR mild pulm edema CT chest concerning for viral pna She was transferred to [facility] for further care. Initially on arrival to [facility] pt was AA however she became lethargic and non responsive. An ABG showed PCO2 78 and she was electively intubated. CURRENT EVALUATION : 07/19/2019 Pt seen and examined in the ICU She continues to be intubated, sedated with fentanyl and propofol Per RN no acute issues Afebrile VS stable % FIO2: 50%->40% PEEP: 8->8 Labs, X rays reviewed: 07/19/2019 BUN: 12->23 Cr: 0.64->0.71 WBC: 9.6->9.9 Hb: 13.7->14.6 Plat: 277->307 Absolute Neutrophils: 6.82->8.91 Absolute Lymphocytes: 1.6->0.89 Neutrophil/Lymphocyte Ratio: 4.1 CRP: 55.6 Ferritin: 28 LDH: 232 Pro Calcitonin: MRSA nasal swab negative 07-17 COVID Negative Cultures: Urine: Blood: 4-18 x 1 no growth 1 day Sputum : Wound: ? CXR: No obvious pneumothorax after central line placement CAT: Mild edema. Nonspecific peripheral infiltrates appear somewhat improved. Coronary artery disease. Discussed with patient, RN, CC, IM. I have personally reviewed the past medical history, past surgical history, medications, social history, and family history, and I have updated the database accordingly. Past Medical History: Past Medical History: Diagnosis Date Asthma Back problem Bulging discs (2 or 3), 1 cracked & 1 blackened discs CAD (coronary artery disease) stents x 3; BMS to LAD 12/2010;SPARKLE to RCA 01/2011, NL LV COPD (chronic obstructive pulmonary disease) ([facility]) Depression Diabetes mellitus ([facility]) Edema chevy legs feet H/O cardiac catheterization 01/01/2011 Hernia of abdominal wall 2012 History of cardiovascular stress test 10/15/12 Abnormal myocardial perfusion study, small to mod perfusion defect of mild intensity in the anterolateral and lateral regions during stress imaging, LV function NL, no wall motion abnormalities, No significant EKG evidence of ischemia during monitoring w/o significant arrhythmias. History of echocardiogram 02/24/2018 EF 60%. Mildly increased LV wall thickness. Evidence of mild diastolic dysfunction seen. History of stress test 04/23/2017 Largerly normal myocardial perfusion imaging with soft tissue artifact, but without signficant evidence of myocardial ischemia or infarction. EF 73%. Hx of blood clots abdomen Hypertension Hypothyroidism Leg pain, bilateral rate 10 Wears partial dentures upper Past Surgical History: Past Surgical History: Procedure Laterality Date AORTA SURGERY 05/2016 [facility]//[place], [place] CARDIAC CATHETERIZATION heart stent x3 CARDIAC CATHETERIZATION Left 02/25/2018 Right Ulnar/[facility]/ CARDIAC SURGERY CHOLECYSTECTOMY FEMORAL BYPASS HYSTERECTOMY VASCULAR SURGERY blood clot removed after hysto Medications: furosemide 40 mg Intravenous BID sodium chloride flush 10 mL Intravenous 2 times per day enoxaparin 40 mg Subcutaneous Daily aspirin EC 81 mg Oral Daily atorvastatin 40 mg Oral Daily clopidogrel 75 mg Oral Daily levothyroxine 150 mcg Oral Daily miconazole Topical BID insulin lispro 0-6 Units Subcutaneous Q6H chlorhexidine 15 mL Mouth/Throat BID famotidine (PEPCID) injection 20 mg Intravenous BID methylPREDNISolone 40 mg Intravenous Q8H metoprolol tartrate 25 mg Oral BID ipratropium-albuterol 1 ampule Inhalation Q6H fluconazole 200 mg Per NG tube Daily Social History: Social History Socioeconomic History Marital status: Spouse name: Not on file Number of children: Not on file Years of education: Not on file Highest education level: Not on file Occupational History Not on file Social Needs Financial resource strain: Not on file Food insecurity Worry: Not on file Inability: Not on file Transportation needs Medical: Not on file Non-medical: Not on file Tobacco Use Smoking status: Current Every Day Smoker Packs/day: 1.00 Years: 40.00 Pack years: 40.00 Types: Cigarettes Smokeless tobacco: Never Used Substance and Sexual Activity Alcohol use: No Drug use: No Sexual activity: Not on file Lifestyle Physical activity Days per week: Not on file Minutes per session: Not on file Stress: Not on file Relationships Social connections Talks on phone: Not on file Gets together: Not on file Attends latter day service: Not on file Active member of club or organization: Not on file Attends meetings of clubs or organizations: Not on file Relationship status: Not on file Intimate partner violence Fear of current or ex partner: Not on file Emotionally abused: Not on file Physically abused: Not on file Forced sexual activity: Not on file Other Topics Concern Not on file Social History Narrative Not on file Family History: Family History Problem Relation Age of Onset Emphysema Mother Heart Disease Father Heart Attack Father 67 Diabetes Other Allergies: Lexiscan [regadenoson]; Nickel; Ceclor [cefaclor]; Codeine; Zithromax [azithromycin]; and Simvastatin Review of Systems: Unable to provide. Sedated on ventilator.07/19/2019 Constitutional: No fevers or chills. No systemic complaints Head: No headaches Eyes: No double vision or blurry vision. No conjunctival inflammation. ENT: No sore throat or runny nose.. No hearing loss, tinnitus or vertigo. Cardiovascular: No chest pain or palpitations.No shortness of breath. No LAMAS Lung: No shortness of breath or cough. No sputum production Abdomen: No nausea, vomiting, diarrhea, or abdominal pain.. No cramps. Genitourinary: No increased urinary frequency, or dysuria. No hematuria. No suprapubic or CVA pain Musculoskeletal: No muscle aches or pains. No joint effusions, swelling or deformities Hematologic: No bleeding or bruising. Neurologic: No headache, weakness, numbness, or tingling. Integument: No rash, no ulcers. Psychiatric: No depression. Endocrine: No polyuria, no polydipsia, no polyphagia. Physical Examination : Patient Vitals for the past 8 hrs: BP Temp Temp src Pulse Resp SpO2 07/19/19 1600 135/61 98.4 F (36.9 C) Oral 69 22 92 % 07/19/19 1500 65 22 94 % 07/19/19 1411 22 94 % 07/19/19 1409 63 22 94 % 07/19/19 1408 21 95 % 07/19/19 1400 62 22 95 % 07/19/19 1300 62 22 95 % 07/19/19 1228 98 F (36.7 C) Axillary 07/19/19 1200 95 % 07/19/19 1100 97 % 07/19/19 1000 97 % General appearance - intubated and sedated Remainder of physical exam deferred due to COVID-19 pandemic and careful stewardship of limited PPE. Medical Decision Making -Laboratory: I have independently reviewed/ordered the following labs: CBC with Differential: Recent Labs 07/17/19 1740 07/19/19 0514 WBC 9.6 9.9 HGB 13.7 14.6 HCT 43.4 47.7* PLT 277 307 LYMPHOPCT 17* 9* MONOPCT 7 1 BMP: Recent Labs 07/18/19 0522 07/19/19 0514 NA 146* 137 K 3.4* 4.0 CL 96* 97* CO2 25 24 BUN 12 23* CREATININE 0.64 0.71 MG 1.9 -- Hepatic Function Panel: Recent Labs 07/17/19 1740 PROT 6.7 LABALBU 3.7 BILITOT 0.26* ALKPHOS 93 ALT 11 AST 12 No results for input(s): RPR in the last 72 hours. No results for input(s): HIV in the last 72 hours. No results for input(s): BC in the last 72 hours. Lab Results Component Value Date MUCUS 1+ 07/18/2019 RBC 5.38 07/19/2019 RBC 4.28 05/21/2011 TRICHOMONAS NOT REPORTED 07/18/2019 WBC 9.9 07/19/2019 YEAST NOT REPORTED 07/18/2019 TURBIDITY CLOUDY 07/18/2019 Lab Results Component Value Date CREATININE 0.71 07/19/2019 GLUCOSE 178 07/19/2019 GLUCOSE 99 05/21/2011 Medical Decision Making-Imagin-18 CXR EXAMINATION: ONE XRAY VIEW OF THE CHEST 07/18/2019 7:40 am COMPARISON: None. HISTORY: ORDERING SYSTEM PROVIDED HISTORY: line placement TECHNOLOGIST PROVIDED HISTORY: line placement Reason for Exam: sup FINDINGS: Right-sided central line is seen. Tip projects in region of distal SVC. No obvious pneumothorax Atherosclerotic change is seen in the aorta. There is prominence of the on the right and left secondary to pulmonary artery enlargement. Bandlike opacity is seen in the left, similar to prior. Impression No obvious pneumothorax after central line placement 07-16 CT chest EXAMINATION: CTA OF THE CHEST 07/17/2019 7:50 pm TECHNIQUE: CTA of the chest was performed after the administration of intravenous contrast. Multiplanar reformatted images are provided for review. MIP images are provided for review. Dose modulation, iterative reconstruction, and/or weight based adjustment of the mA/kV was utilized to reduce the radiation dose to as low as reasonably achievable. COMPARISON: April 21, 2019 CT chest and chest x-ray from today HISTORY: ORDERING SYSTEM PROVIDED HISTORY: Desats, possible pulm edema, but elevated D dimer. R/O PE TECHNOLOGIST PROVIDED HISTORY: Desats, possible pulm edema, but elevated D dimer. R/O PE FINDINGS: Pulmonary Arteries: Pulmonary arteries are adequately opacified for evaluation. No evidence of intraluminal filling defect to suggest pulmonary embolism. Main pulmonary artery is increased but stable in caliber. Mediastinum: Cardiomegaly and calcific coronary artery disease. Heart and great vessels unremarkable except for mild cardiomegaly. Borderline nonspecific mediastinal and hilar lymphadenopathy stable. Lungs/pleura: Mild edema. Subsegmental atelectasis left lower lobe. There are few scattered ill-defined interstitial infiltrates which appear improved. Upper Abdomen: Limited images of the upper abdomen are unremarkable. Soft Tissues/Bones: No acute bone or soft tissue abnormality. Impression Mild edema. Nonspecific peripheral infiltrates appear somewhat improved. Coronary artery disease. RECOMMENDATIONS: Imaging features can be seen with viral pneumonia, though are nonspecific and can occur with a variety of infectious and noninfectious processes. PneInd Medical Decision [id number]: Medical Decision Making-Other: Note: Labs, medications, radiologic studies were reviewed with personal review of films Moderate Large amounts of data were reviewed Discussed with nursing Staff, land planner Infection Control and Prevention measures reviewed All prior entries were reviewed Administer medications as ordered Prognosis: Guarded Discharge planning reviewed Follow up as outpatient. Thank you for allowing us to participate in the care of this patient. Please call with questions. MARV Early MD Pager: - Office: * Rahul Donohue RN - 07/19/2019 11:00 AM EDT Resp virus panel PCR and COVID swabs obtained and hand delivered to lab. * Austin Hogan MD - 07/19/2019 10:02 AM EDT Critical Care Team - Daily Progress Note Date and time: 07/19/2019 10:03 AM Patient's name: Jonatan Olivarez Patient's account/billing number: [id number] Patient's Date of : 1960 Age: 58 y.o. Date of Admission: 07/18/2019 1:26 AM Length of stay during current admission: 1 Primary Care Physician: Vahid Nagy APRN - TRUST ADMINISTRATOR ICU Attending Physician: Dr. Alvarez Code Status: Full Code Reason for ICU admission: Acute respiratory failure, r/o COVID SUBJECTIVE: OVERNIGHT EVENTS: Overnight pt had poor urine output Was given a 500 mL bolus yesterday afternoon UO for the past 24 hours has been 580 This morning sedation holiday performed Pt was awake and following commands Neuro intact BP elevated to 214/81,pt put back on fentanyl and propofol AWAKE & FOLLOWING COMMANDS: [x] No [] Yes CURRENT VENTILATION STATUS: [x] Ventilator [] BIPAP [] Nasal Cannula [] Room Air IF INTUBATED, ET TUBE MARKING AT LOWER LIP: cms SECRETIONS Amount: [] Small [] Moderate [] Large [] None Color: [] White [] Colored [] Bloody SEDATION: RAAS Score: [x] Propofol gtt [] Versed gtt [] Ativan gtt [] No Sedation PARALYZED: [x] No [] Yes DIARRHEA: [x] No [] Yes (C. Difficile status: [] positive [] negative [] pending) VASOPRESSORS: [x] No [] Yes If yes - [] Levophed [] Dopamine [] Vasopressin [] Dobutamine [] Phenylephrine [] Epinephrine CENTRAL LINES: [] No [] Yes (Date of Insertion: ) If yes - [x] Right IJ [] Left IJ [] Right Femoral [] Left Femoral [] Right Subclavian [] Left Subclavian UREÑA'S CATHETER: [] No [x] Yes (Date of Insertion: ) URINE OUTPUT: [] Good [x] Low [] Anuric OBJECTIVE: VITAL SIGNS: BP (!) 151/64 Pulse 69 Temp 98.7 F (37.1 C) (Oral) Resp 22 Ht 5' 1 (1.549 m) Wt 173 lb 8oz (78.7 kg) SpO2 96% BMI 32.78 kg/m Tmax over 24 hours: Temp (24hrs), Av.6 F (37 C), Min:98.4 F (36.9 C), Max:98.8 F (37.1 C) Patient Vitals for the past 6 hrs: Temp Temp src Pulse Resp SpO2 07/19/19 0828 98.7 F (37.1 C) Oral 07/19/19 0802 69 22 96 % 07/19/19 0500 73 22 96 % 07/19/19 0430 72 22 97 % Intake/Output Summary (Last 24 hours) at 07/19/2019 1003 Last data filed at 07/19/2019 0500 Gross per 24 hour Intake 2602.9 ml Output 505 ml Net 2097.9 ml Wt Readings from Last 2 Encounters: 07/18/19 173 lb 8 oz (78.7 kg) 07/17/19 180 lb (81.6 kg) Body mass index is 32.78 kg/m . PHYSICAL EXAMINATION: General appearance - intubated and sedated Remainder of physical exam deferred due to COVID-19 pandemic and careful stewardship of limited PPE. Any additional physical findings: MEDICATIONS: Scheduled Meds: sodium chloride flush 10 mL Intravenous 2 times per day enoxaparin 40 mg Subcutaneous Daily aspirin EC 81 mg Oral Daily atorvastatin 40 mg Oral Daily clopidogrel 75 mg Oral Daily levothyroxine 150 mcg Oral Daily miconazole Topical BID insulin lispro 0-6 Units Subcutaneous Q6H chlorhexidine 15 mL Mouth/Throat BID famotidine (PEPCID) injection 20 mg Intravenous BID methylPREDNISolone 40 mg Intravenous Q8H metoprolol tartrate 25 mg Oral BID ipratropium-albuterol 1 ampule Inhalation Q6H fluconazole 200 mg Per NG tube Daily Continuous Infusions: dextrose propofol 50 mcg/kg/min (04/19/20 0818) fentaNYL 50 mcg/hr (07/19/19814) PRN Meds: sodium chloride flush, 10 mL, PRN acetaminophen, 650 mg, Q6H PRN Or acetaminophen, 650 mg, Q6H PRN polyethylene glycol, 17 g, Daily PRN promethazine, 12.5 mg, Q6H PRN Or ondansetron, 4 mg, Q6H PRN labetalol, 10 mg, Q4H PRN glucose, 15 g, PRN dextrose, 12.5 g, PRN glucagon (rDNA), 1 mg, PRN dextrose, 100 mL/hr, PRN VENT SETTINGS (Comprehensive) (if applicable): Vent Information $Ventilation: $Subsequent Day Skin Assessment: Clean, dry, & intact Vent Type: Servo i Vent Mode: PRVC Vt Ordered: 380 mL Rate Set: 22 bmp Pressure Support: 50 cmH20 FiO2 : (S) 45 % SpO2: 96 % SpO2/FiO2 ratio: 213.33 Sensitivity: 3 PEEP/CPAP: 8 I Time/ I Time %: 0.8 s Humidification Source: HME Nitric Oxide/Epoprostenol In Use?: No Additional Respiratory Assessments Pulse: 69 Resp: 22 SpO2: 96 % End Tidal CO2: 50 (%) pCO2 (TCOM, mmHg): 66 mmHg Position: Semi-Cunha's Humidification Source: HME Oral Care Completed?: Yes Oral Care: Lip moisturizer applied, Mouth swabbed Subglottic Suction Done?: No ABGs: Laboratory findings: Complete Blood Count: Recent Labs 07/17/19 17407/19/19 0514 WBC 9.6 9.9 HGB 13.7 14.6 HCT 43.4 47.7* PLT 277 307 Last 3 Blood Glucose: Recent Labs 07/17/19 1740 07/18/19 0522 07/19/19 0514 GLUCOSE 126* 149* 178* PT/INR: Lab Results Component Value Date PROTIME 10.6 07/17/2019 PROTIME 10.1 03/11/2011 INR 1.0 07/17/2019 PTT: Lab Results Component Value Date APTT 25.4 06/24/2013 Comprehensive Metabolic Profile: Recent Labs 07/17/19 1740 07/18/19 0216 07/18/19 0522 07/19/19 0514 NA 140 -- 146* 137 K 4.2 -- 3.4* 4.0 CL 99 -- 96* 97* CO2 29 -- 25 24 BUN 13 -- 12 23* CREATININE 0.57 <0.30* 0.64 0.71 GLUCOSE 126* -- 149* 178* CALCIUM 9.1 -- 9.2 8.6 PROT 6.7 -- -- -- LABALBU 3.7 -- -- -- BILITOT 0.26* -- -- -- ALKPHOS 93 -- -- -- AST 12 -- -- -- ALT 11 -- -- -- Magnesium: Lab Results Component Value Date MG 1.9 07/18/2019 Phosphorus: No results found for: PHOS Ionized Calcium: Lab Results Component Value Date CAION 1.11 07/18/2019 Urinalysis: Troponin: No results for input(s): TROPONINI in the last 72 hours. Microbiology: Cultures during this admission: Blood cultures: [] None drawn [x] Negative [] Positive (Details: ) Urine Culture: [] None drawn [] Negative [] Positive (Details: ) Sputum Culture: [] None drawn [] Negative [] Positive (Details: ) Endotracheal aspirate: [] None drawn [] Negative [] Positive (Details: ) Other pertinent Labs: Radiology/Imaging: Chest Xray (07/19/2019): ASSESSMENT: Patient Active Problem List Diagnosis Date Noted Angina, class III ([facility]) 02/25/2018 Priority: High Diabetic ulcer of toe of left foot associated with type 2 diabetes mellitus, with fat layer exposed([facility]) 01/24/2017 Priority: High Class: Chronic CAD S/P percutaneous coronary angioplasty 08/30/2013 Priority: High Diabetic polyneuropathy associated with type 2 diabetes mellitus ([facility]) 01/24/2017 Priority: Medium Class: Chronic Ventral hernia 08/30/2013 Priority: Medium AMS (altered mental status) 07/18/2019 Acute on chronic respiratory failure with hypercapnia ([facility]) 07/18/2019 COVID-19 07/17/2019 Acute on chronic respiratory failure with hypoxemia ([facility]) 04/23/2019 Pneumonia due to infectious organism 04/23/2019 COPD, severity to be determined ([facility]) Diabetes mellitus ([facility]) Hypertension Community acquired bacterial pneumonia 04/21/2019 COPD exacerbation ([facility]) 06/06/2018 COPD with exacerbation ([facility]) 06/05/2018 Acute respiratory failure with hypoxia and hypercapnia ([facility]) 06/05/2018 Hx of blood clots CAD (coronary artery disease) Tobacco abuse counseling 05/27/2014 Tobacco abuse 05/27/2014 Atherosclerosis of artery of extremity with intermittent claudication ([facility]) 05/27/2014 Dizziness 05/27/2014 Intolerance of drug 05/27/2014 Atherosclerosis of both carotid arteries 05/27/2014 Hypothyroidism 05/27/2014 Abnormal nuclear stress test 01/22/2013 Smoking greater than 40 pack years 01/22/2013 Claudication in peripheral vascular disease ([facility]) 11/06/2012 Stable angina ([facility]) 11/06/2012 Additional assessment: COVID 19 Suspect Respiratory failure ES COPD DM II CAD PAD/PVD Neuropathy Macrolide and Cephalosporin allergy PLAN: WEAN PER PROTOCOL: [] No [] Yes [] N/A DISCONTINUE ANY LABS: [x] No [] Yes ICU PROPHYLAXIS: Stress ulcer: [] PPI Agent [x] [id number] [] Sucralfate [] Other: VTE: [] Enoxaparin [] Unfract. Heparin Subcut [] EPC Cuffs NUTRITION: [x] NPO [] Tube Feeding (Specify: ) [] TPN [] PO (Diet: Diet NPO Effective Now) HOME MEDICATIONS RECONCILED: [x] No [] Yes INSULIN DRIP: [x] No [] Yes CONSULTATION NEEDED: [x] No [] Yes FAMILY UPDATED: [x] No [] Yes TRANSFER OUT OF ICU: [x] No [] Yes ADDITIONAL PLAN: Acute on chronic respiratory failure likely secondary to viral pneumonia Patient intubated because of concern of altered mentation and elevated CO2 Continue Fentanyl and Propofol, wean as tolerated and extubate tomorrow if possible Patient allergic to cephalosporin and azithromycin Was started on Levaquin, ID following and stopped Pt started on Fluconazole 200 mg for 7 days Sputum culture is pending Respiratory viral panel is negative Legionella, strep pneumoniae negative COVID results still pending CRP 55.6, ferritin 28, LDH 232, lactic acid 2.1 Started on Lasix 40 mg BID Monitor I/O Hypertension- Continue metoprolol 25 twice daily and increase dose as needed. Patient is on propofol which will decrease her blood pressure as well CAD With previous stents, 80% stenosis of LAD, not restented Continue aspirin, plavix and statin Continue home metoprolol Diastolic heart failure Pro-BNP 1007 EF-60% with diastolic heart failure Received 1 dose lasix, started on Lasix 40 mg BID Monitor intake and output, follow fluid restriction Hypothyroidism continue home Synthyroid supplementation TSH 0.95 Type 2 diabetes mellitus, Controlled last A1c was 7, Continue POCT glucose checks every 6 and low dose insulin sliding scale as needed Peripheral vascular disease - History of aortobifem bypass, left femoropopliteal bypass, stable Morbid obesity GI prophylaxis with Pepcid DVT prophylaxis Lovenox 40 mg daily Austin Hogan M.D. [employer] on COVID Service 07/19/2019, 10:03 AM Associated attestation - Favian Alvarez MD - 07/20/2019 7:05 AM EDT Critical Care Attending Physician Addendum: I have discussed the care of Jonatan Olivarez, including pertinent history and exam findings, withthe resident/DINESH/staff. I have seen the patient and the sims elements of all parts of the encounter have been performed by me. Physical exam was deferred and deferred to limit exposure and physical PPE. I reviewed the interval history, interpreted all available radiographic, laboratory and physiologic data at the time of service. I agree with the assessment and plan as documented by resident/DINESH/staff with following amendments. REASON FOR ICU ADMISSION: COVID-19/Acute Respiratory failure LOS: 1 ICU COURSE/INTERVAL HISTORY: Patient has history of diabetes, hypothyroidism COPD, chronic hypoxemic respiratory failure, diastolic heart failure, coronary artery disease and peripheral vascular disease, status post prior to bifemoral and left femoropopliteal bypass. She was found down on the floorfor unknown and was initially taken to [place] [facility]. She was hypoxemic on presentation, was initially placed on high flow and subsequently intubated. Her CT was reported to be concerning for viral pneumonia and. She was transferred to [facility] for further management. Her COVID-19 test remains pending. She continues on sedation and invasive mechanical ventilation. No overnight issues reported. VITAL SIGNS: LAST: BP (!) 151/64 Pulse 63 Temp 98 F (36.7 C) (Axillary) Resp 22 Ht 5' 1 (1.549 m) Wt 173 lb8 oz (78.7 kg) SpO2 94% BMI 32.78 kg/m 8-24 HR RANGE: TEMP Temp Av.5 F (36.9 C) Min: 98 F (36.7 C) Max: 98.8 F (37.1 C) BP Systolic (24hrs), Av , Min:151 , Max:151 Diastolic (24hrs), Av, Min:64, Max:64 PULSE Pulse Av.7 Min: 63 Max: 84 RR Resp Av.8 Min: 21 Max: 22 O2 SAT SpO2 Av % Min: 94 % Max: 96 % OXYGEN DELIVERY No data recorded VENTILATOR SETTINGS: Vent Information $Ventilation: $Subsequent Day Skin Assessment: Clean, dry, & intact Vent Type: Servo i Vent Mode: PRVC Vt Ordered: 380 mL Rate Set: 22 bmp Pressure Support: 50 cmH20 FiO2 : 40 % SpO2: 94 % SpO2/FiO2 ratio: 235 Sensitivity: 3 PEEP/CPAP: 8 I Time/ I Time %: 0.8 s Humidification Source: HME Nitric Oxide/Epoprostenol In Use?: No PaO2/FiO2 RATIO: Recent Labs 07/18/19 0554 POCPO2 61.7* FiO2 : 40 % INPUT/OUTPUT: In: 2662.9 [I.V.:2132.9; NG/GT:180] Out: 605 [Urine:605] LABS: ABGs: Recent Labs 07/18/19 0446 07/18/19 0554 POCPH 7.353 7.455* POCPCO2 64.9* 45.4 POCPO2 127.5* 61.7* POCHCO3 36.1* 31.9* [id number] 99* 92* CBC: Recent Labs 07/17/19 1740 07/19/19 0514 WBC 9.6 9.9 HGB 13.7 14.6 HCT 43.4 47.7* MCV 87.5 88.7 PLT 277 307 LYMPHOPCT 17* 9* RBC 4.96 5.38* MCH 27.6 27.1 MCHC 31.6 30.6 RDW 15.7* 15.2* CRP: Recent Labs 07/19/19 0514 CRP 55.6* LDH: Recent Labs 07/18/19 0522 LDH 232* BMP: Recent Labs 07/17/19 1740 07/18/19 0216 07/18/19 0522 07/19/19 0514 NA 140 -- 146* 137 K 4.2 -- 3.4* 4.0 CL 99 -- 96* 97* CO2 29 -- 25 24 BUN 13 -- 12 23* CREATININE 0.57 <0.30* 0.64 0.71 GLUCOSE 126* -- 149* 178* Liver Function Test: Recent Labs 07/17/19 174 PROT 6.7 LABALBU 3.7 ALT 11 AST 12 ALKPHOS 93 BILITOT 0.26* Coagulation Profile: Recent Labs 07/17/191739 INR 1.0 PROTIME 10.6 D-Dimer: Recent Labs 07/17/191739 DDIMER 0.97* Ferritin: Recent Labs 07/18/19 05 FERRITIN 28 Lactic Acid: Recent Labs 07/19/19 0514 LACTA NOT REPORTED Cardiac Enzymes: Recent Labs 07/17/191739 CKTOTAL 70 BNP/ProBNP: Recent Labs 07/17/19 174 PROBNP 1,007* Triglycerides: No results for input(s): TRIG in the last 72 hours. QTc: RADIOLOGY: XR ABDOMEN FOR NG/OG/NE TUBE PLACEMENT Final Result The orogastric tube is in the distal stomach. XR CHEST PORTABLE Final Result No obvious pneumothorax after central line placement ASSESSMENT: Acute on chronic hypoxic respiratory failure, requiring invasive mechanical ventilation Suspected COVID-19 infection Diastolic heart failure Elevated proBNP Chronic obstructive pulmonary disease Coronary artery disease Peripheral vascular disease Diabetes mellitus Tobacco abuse PLAN: Patient currently sedated with propofol and fentanyl infusions She remains hemodynamically stable Continue antiplatelet therapy with Plavix and metoprolol Continue lung protective mechanical ventilationas per ARDS protocol She is on PEEP of 8, FiO2 40% Monitor endotracheal secretions Obtain X-ray chest as needed Continue pulmonary toilet, aspiration precautions and bronchodilators We will recommend diuresis with Lasix Monitor BMP, Intake/Output with a goal of even/negative fluid balance Recommend to continue tube feeds Stress ulcer prophylaxis Continue to monitor CBC, coagulation profile Chemical DVT prophylaxis Her COVID-19 specimen seems to have been misplaced, new specimen sent, follow-up results Antimicrobials reviewed; she was started on Levaquin, ID service changed to fluconazole Glycemic control appropriate, continue Lantus/sliding scale insulin Continue IV Solu-Medrol at current dose of 40 mg every 8 hours Patient remains critically ill with illness/injury that acutely impairs one or more vital organ systems, such that there is a high probability of imminent or life threatening deterioration in the patient's condition. Critical care time of greater than 30 minutes was spent (excluding procedures), incoordination of care during rounds and discussion of patient care in detail, and recommendations ofthe team members were adopted in the plan. Necessity of all invasive devices was also confirmed. Favian Alvarez M.D. Pulmonary and Critical Care Medicine 07/19/2019, 2:47 PM This patient was evaluated in the context of the global SARS-CoV-2 (COVID-19) pandemic, which necessitated considerations that the patient either has COVID-19 infection or is at risk of infection with COVID-19. Institutional protocols and algorithms that pertain to the evaluation & management of patients with COVID- 19 or those at risk for COVID-19 are in a state of rapid changes based on infor mation released by regulatory bodies including the CDC and federal and state organizations. These policies and algorithms were followed during the patient's care. Please note that this chart was generated using voice recognition [employer] dictation software. Although every effort was made to ensure the accuracy of this automated skidder lever operator, some errors in skidder lever operator may have occurred. * Rahul Donohue RN - 07/19/2019 8:28 AM EDT Sedation holiday, patient awoke and followed commands, had increase in BP with holiday to 214/81, and HR 96 reassured, propofol and fentanyl resumed. * Arben Mansfield RN - 07/18/2019 9:20 PM EDT Pt sister Lesvia called and updated. All questions and concerns answered at this time. * Rahul Donohue RN - 07/18/2019 4:09 PM EDT Pt sister Lesvia Coelho given update.- Fay and Hope (patients sisters) agree with Hope will be the family update. * Rahul Donohue RN - 07/18/2019 4:07 PM EDT Pt sister Fay from [facility] called for update, update given. * Milvia Thompson RCP - 07/18/2019 10:15 AM EDT Ventilator Bronchodilator assessment Breath sounds: diminished Inspiratory Pressure: 25 Plateau Pressure: 22 Patient assessed at level 2 [] Bronchodilator Assessment BRONCHODILATOR ASSESSMENT SCORE Score 0 (Home) 1 2 3 4 Breath Sounds [] Chronic Ventilator: Patient at baseline [] Mild Wheezes/ Clear [x] Intermittent wheezes with good air entry [] Bilateral/unilateral wheezing with diminished air entry [] Insp/Exp wheeze and/or poor aeration Ventilator Pressures [] Chronic Ventilator [] Insp. Pressure less than 25 cm H20 [] Insp. Pressure less than 25 cm H20 [] Insp. Pressure exceeds 25 cm H20 [] Insp. Pressure exceeds 30 cm H20 Plateau Pressure [] NA [] Plateau Pressure less than 4 [x] Plateau Pressure less than or equal to 5 [] Plateau Pressure greater than or equal to 6 [] Plateau Pressure greater than or equal to 8 MILVIA THOMPSON 10:15 AM2 * Kaitlin Avila, ANTHONY, LD - 07/18/2019 9:46 AM EDT Nutrition Assessment Type and Reason for Visit: Initial, Consult([facility] Vent Protocol) Nutrition Recommendations: -Continue NPO status -Start diet vs nutrition support as able -If continuous tube feeding is desired, recommend Vital High Protein (low calorie, high protein) @ 15 mL/hr x 24 hrs ~> 360 kcals, 32 gms protein, 301 mLs water (w/ current rate of propofol ~> 1234 kcals/d) -If bolus tube feeding is desired, recommend Vital High Protein (low calorie, high protein) -Bolus 180 mLs of tube feeding - 2x/d -Suggest 60 mL free water flush before and after each bolus OR per MD discretion ~> 240 mLs -Provides 360 kcals, 32 gms protein, 301 mLs water ( 541 mLs total water w/ free water flushes) -Will monitor nutrition progression Nutrition Assessment: Pt admitted d/t chronic respiratory failure most likely d/t viral pneumonia. COVID-19 testing pending. Pt is currently NPO and intubated. Tube feed rec's above if needed, will monitor. Malnutrition Assessment: Malnutrition Status: Insufficient data Context: Acute illness or injury Findings of the 6 clinical characteristics of malnutrition (Minimum of 2 out of 6 clinical characteristics is required to make the diagnosis of moderate or severe Protein Calorie Malnutrition based on AND/ASPEN Guidelines): 1. Energy Intake-Unable to assess, 2. Weight Loss-5% loss or greater, (x 7 mo) 3. Fat Loss-Unable to assess, 4. Muscle Loss-Unable to assess, 5. Fluid Accumulation-Mild fluid accumulation, Generalized 6. [employer]er Strength-Not measured Nutrition Risk Level: High Nutrient Needs: Estimated Daily Total Kcal: 20-25 ~> 9221-4119 kcals/d Estimated Daily Protein (g): 1.2-2.0 gm/kg ~> 58-96 gms/d Nutrition Diagnosis: Problem: Inadequate oral intake Etiology: related to Impaired respiratory function-inability to consume food ? Signs and symptoms: as evidenced by NPO status due to medical condition, Intubation Objective Information: Wound Type: None Current Nutrition Therapies: Oral Diet Orders: NPO Additional calories: propofol @ 33.1 mL/hr ~> 874 kcals/d Anthropometric Measures: Ht: 5' 1 (154.9 cm) Current Body Wt: 173 lb (78.5 kg) Admission Body Wt: 173 lb (78.5 kg) % Weight Change: , 6% wt loss x 7 mo per EMR [place] Body Wt: 105 lb (47.6 kg), % [place] Body 165% adm/ideal BMI Classification: BMI 30.0 - 34.9 Obese Class I(32.3) Nutrition Interventions: Continue NPO(Start diet vs nutrition support as able ) Continued Inpatient Monitoring, Education Not Indicated Nutrition Evaluation: Evaluation: Goals set Goals: Start diet vs nutrition support within 24-72 hrs Monitoring: Nutrition Progression, I&O, Weight, Pertinent Labs, Monitor Bowel Function Contact Number: [phone] * Stacy Rivas RCP - 07/18/2019 3:17 AM EDT Date: 07/18/2019 Time: 249 Patient identity confirmed: Yes Indications: Respiratory failure Preoxygenation: yes Laryngoscope size and type Glidescope Airway introducer used: No Evac: No ETT size:a 7.5 cuffed Number of attempts:1 Cords visualized: [x] Clearly [] Poorly Breath sounds present bilaterally: Yes ETCO2 [x] Positive ETT secured at 21 ETT secured with Monika Chest x-ray ordered: Yes Difficult airway: No If yes, was red tape placed around ETT: no Was this a Code Situation: No BP: (!) 176/62 Procedure performed by: COREY Wang 3:17 AM * Zach Witt [facility] - 07/18/2019 2:14 AM EDT Pharmacy Note Vancomycin Consult Jonatan Olivarez is a 58 y.o. female started on Vancomycin for possible sepsis; consult received from Dr. Constantin Baeza to manage therapy. Also receiving the following antibiotics: Levofloxacin. Patient Active Problem List Diagnosis Claudication in peripheral vascular disease (HCC) Stable angina (HCC) Abnormal nuclear stress test Smoking greater than 40 pack years CAD S/P percutaneous coronary angioplasty Ventral hernia Tobacco abuse counseling Tobacco abuse Atherosclerosis of artery of extremity with intermittent claudication ([facility]) Dizziness Intolerance of drug Atherosclerosis of both carotid arteries Hypothyroidism Diabetic ulcer of toe of left foot associated with type 2 diabetes mellitus, with fat layer exposed(HCC) Diabetic polyneuropathy associated with type 2 diabetes mellitus (HCC) Angina, class III (HCC) COPD with exacerbation (HCC) Hx of blood clots CAD (coronary artery disease) Acute respiratory failure with hypoxia and hypercapnia (HCC) COPD exacerbation (HCC) Community acquired bacterial pneumonia COPD, severity to be determined (HCC) Diabetes mellitus (HCC) Hypertension Acute on chronic respiratory failure with hypoxemia (HCC) Pneumonia due to infectious organism COVID-19 Allergies: Lexiscan [regadenoson]; Nickel; Ceclor [cefaclor]; Codeine; Zithromax [azithromycin]; and Simvastatin Temp max: 98.5 Recent Labs 07/17/19 1740 BUN 13 Recent Labs 07/17/19 1740 CREATININE 0.57 Recent Labs 07/17/19 1740 WBC 9.6 Intake/Output Summary (Last 24 hours) at 07/18/2019 0210 Last data filed at 07/18/2019 0200 Gross per 24 hour Intake Output 120 ml Net -120 ml Culture Date Source Results pending Ht Readings from Last 1 Encounters: 07/18/19 5' 1 (1.549 m) Wt Readings from Last 1 Encounters: 07/18/19 173 lb 8 oz (78.7 kg) Body mass index is 32.78 kg/m . Estimated Creatinine Clearance: 101 mL/min (based on SCr of 0.57 mg/dL). Goal Trough Level: 15-20 mcg/mL Assessment/Plan: Will initiate Vancomycin 1000 mg IV every12 hours. Timing of trough level will be determined based on culture results, renal function, and clinical response. Thank you for the consult. Will continue to follow. Zach Witt [facility] 07/18/2019 2:13 AM documented in this encounter* Emily Mac RN - 03/17/2020 7:11 PM EST Patient taken to [facility] rm 303. Alert and oriented, denies pain. Left radial palpable distal to puncture site. Pressure dressing remains in place no redness/swelling/bleeding noted. Report given to Fadia CHAPIN. * Emily Mac RN - 03/17/2020 12:00 PM EST Patient returned to pre/post area. Alert and oriented, denies pain. Left radial palpable distal to puncture site. Pressure dressing in place no redness/bleeding/swelling noted. Will continue to monitor. documented in this encounter History of Present Illness not supported for this document type No History of Present Illness Recorded Review of System Review of Systems not supported for this document type No Review of Systems Recorded Review of Systems not supported for this document type No Review of Systems Recorded Review of Systems not supported for this document type No Review of Systems Recorded Review of Systems not supported for this document type No Review of Systems Recorded Review of Systems not supported for this document type No Review of Systems Recorded Review of Systems not supported for this document type No Review of Systems Recorded Review of Systems not supported for this document type No Review of Systems Recorded Review of Systems not supported for this document type No Review of Systems Recorded Review of Systems not supported for this document type No Review of Systems Recorded Review of Systems not supported for this document type No Review of Systems Recorded Review of Systems not supported for this document type No Review of Systems Recorded Review of Systems not supported for this document type No Review of Systems Recorded Review of Systems not supported for this document type No Review of Systems Recorded Review of Systems not supported for this document type No Review of Systems Recorded Review of Systems not supported for this document type No Review of Systems Recorded Review of Systems not supported for this document type No Review of Systems Recorded Review of Systems not supported for this document type No Review of Systems Recorded Review of Systems not supported for this document type No Review of Systems Recorded Review of Systems not supported for this document type No Review of Systems Recorded Review of Systems not supported for this document type No Review of Systems Recorded Review of Systems not supported for this document type No Review of Systems Recorded Review of Systems not supported for this document type No Review of Systems Recorded Review of Systems not supported for this document type No Review of Systems Recorded Review of Systems not supported for this document type No Review of Systems Recorded Review of Systems not supported for this document type No Review of Systems Recorded Review of Systems not supported for this document type No Review of Systems Recorded Review of Systems not supported for this document type No Review of Systems Recorded Review of Systems not supported for this document type No Review of Systems Recorded Review of Systems not supported for this document type No Review of Systems Recorded Review of Systems not supported for this document type No Review of Systems Recorded Review of Systems not supported for this document type No Review of Systems Recorded Review of Systems not supported for this document type No Review of Systems Recorded Review of Systems not supported for this document type No Review of Systems Recorded Physical Exam Physical Exam not supported for this document type No Physical Exam Recorded Physical Exam not supported for this document type No Physical Exam Recorded Physical Exam not supported for this document type No Physical Exam Recorded Physical Exam not supported for this document type No Physical Exam Recorded Physical Exam not supported for this document type No Physical Exam Recorded Physical Exam not supported for this document type No Physical Exam Recorded Physical Exam not supported for this document type No Physical Exam Recorded Physical Exam not supported for this document type No Physical Exam Recorded Physical Exam not supported for this document type No Physical Exam Recorded Physical Exam not supported for this document type No Physical Exam Recorded Physical Exam not supported for this document type No Physical Exam Recorded Physical Exam not supported for this document type No Physical Exam Recorded Physical Exam not supported for this document type No Physical Exam Recorded Physical Exam not supported for this document type No Physical Exam Recorded Physical Exam not supported for this document type No Physical Exam Recorded Physical Exam not supported for this document type No Physical Exam Recorded Physical Exam not supported for this document type No Physical Exam Recorded Physical Exam not supported for this document type No Physical Exam Recorded Physical Exam not supported for this document type No Physical Exam Recorded Physical Exam not supported for this document type No Physical Exam Recorded Physical Exam not supported for this document type No Physical Exam Recorded Physical Exam not supported for this document type No Physical Exam Recorded Physical Exam not supported for this document type No Physical Exam Recorded Physical Exam not supported for this document type No Physical Exam Recorded Physical Exam not supported for this document type No Physical Exam Recorded Physical Exam not supported for this document type No Physical Exam Recorded Physical Exam not supported for this document type No Physical Exam Recorded Physical Exam not supported for this document type No Physical Exam Recorded Physical Exam not supported for this document type No Physical Exam Recorded Physical Exam not supported for this document type No Physical Exam Recorded Physical Exam not supported for this document type No Physical Exam Recorded Physical Exam not supported for this document type No Physical Exam Recorded Physical Exam not supported for this document type No Physical Exam Recorded Physical Exam not supported for this document type No Physical Exam Recorded Physical Exam not supported for this document type No Physical Exam Recorded Physical Exam not supported for this document type No Physical Exam Recorded Physical Exam not supported for this document type No Physical Exam Recorded Physical Exam not supported for this document type No Physical Exam Recorded Reason for Referral StatusReasonSpecialtyDiagnoses / ProceduresReferred By ContactReferred To ContactNot Required - RecondoCardiology / Echocardiography Diagnoses ASHD (arteriosclerotic heart disease) S/P angioplasty with stent Mixed hyperlipidemia Essential hypertension Tobacco abuse counseling Abdominal aortic aneurysm (AAA) without rupture (HCC) PVD (peripheral vascular disease) (HCC) Bilateral carotid artery disease, unspecified type (HCC) Lightheadedness Dizziness Procedures Echo 2D w doppler w color complete Josef Brooks MD [address] [place] [address] [facility] Echo [address] [place] [address] StatusReasonSpecialtyDiagnoses / ProceduresReferred By ContactReferred To ContactNot Required - RecondoCardiology / Stress Lab Diagnoses ASHD (arteriosclerotic heart disease) S/P angioplasty with stent Mixed hyperlipidemia Essential hypertension Tobacco abuse counseling Abdominal aortic aneurysm (AAA) without rupture (HCC) PVD (peripheral vascular disease) (HCC) Bilateral carotid artery disease, unspecified type (HCC) Lightheadedness Dizziness Procedures Stress test (Lexiscan) Josef Brooks MD [address] [place], [place] [id number] [facility] Stress Lab [address] [place] [address] StatusReasonSpecialtyDiagnoses / ProceduresReferred By ContactReferred To ContactOpenRadiology Diagnoses Spinal stenosis of lumbar region, unspecified whether neurogenic claudication present DDD (degenerative disc disease), lumbar Procedures MRI LUMBAR SPINE WO CONTRAST Deion Fritz, [employer] - [facility] [address] [place] [address] SpecialtyDiagnoses / ProceduresReferred By ContactReferred To ContactRadiology Diagnoses Right sided abdominal pain Procedures CT ABDOMEN PELVIS W IV CONTRAST Additional Contrast? Oral CT ABDOMEN PELVIS W IV CONTRAST Additional Contrast? Oral Osmar Rodriguez MD [address] [place] [address] [place] [address] Referral IDStatusReasonStart DateExpiration DateVisits RequestedVisits [id number] / Procedures Referred By ContactReferred To ContactRadiology Diagnoses Chronic right hip pain Procedures MRI HIP RIGHT WO CONTRAST Osmar Rodriguez MD [address] [place] [address] [place] [address] Referral IDStatusReasonStart DateExpiration DateVisits RequestedVisits [id number] / Procedures Referred By ContactReferred To ContactRadiology Diagnoses Recurrent abdominal hernia without obstruction or gangrene, unspecified hernia type Right lower quadrant abdominal mass Procedures CT ABDOMEN PELVIS W IV CONTRAST Additional Contrast? Oral Osmar Rodriguez MD [address] [facility] [address] [place] [address] Referral IDStatusReasonStart DateExpiration DateVisits RequestedVisits [id number] / Procedures Referred By ContactReferred To Contact Diagnoses Gastrointestinal hemorrhage, unspecified gastrointestinal hemorrhage type Gastric ulcer without hemorrhage or perforation, unspecified chronicity Procedures EGD Renuka Angeles MD [address] [facility], [address] [place] [id number] Referral IDStatusReasonStart DateExpiration DateVisits RequestedVisits [id number] Discharge Instructions * Instructions* Chago Langston II, PA-C - 01/13/2019 Return for patient blood work in 2 days and then follow with your family practitioner * Attachments The following attachments cannot be sent through Care Everywhere. * Hyponatremia ([place]) * Lightheadedness or Faintness ([place]) documented in this encounter* Instructions* Mukesh Marley MD - 02/23/2019 You do not have a blood clot in your aorta please see your vascular doctor if you are having issues. documented in this encounter* Attachments The following attachments cannot be sent through Care Everywhere. * Contusion: Hand ([place]) documented in this encounter* Attachments The following attachments cannot be sent through Care Everywhere. * BPPV (Benign Paroxysmal Positional Vertigo) ([place]) documented in this encounter* Attachments The following attachments cannot be sent through Care Everywhere. * Back Pain ([place]) * Pneumonia ([place]) documented in this encounter* Instructions* Wesly Whitten MD - 10/08/2019 Please take all medications as prescribed. Please follow up with your primary care physician by calling today, or as soon as possible, for thefirst available appointment. If you do not have a primary care physician, please contact a physician or clinic listed below today to establish care. Please return to the emergency department IMMEDIATELY if you develop uncontrolled fevers, uncontrolled vomiting, change in symptoms, worsening of symptoms, or ANY other concerns. * Attachments The following attachments cannot be sent through Care Everywhere. * Pneumonia ([place]) documented in this encounter* Attachments The following attachments cannot be sent through Care Everywhere. * Groin Strain ([place]) documented in this encounter* Instructions* Deion Loaiza MD - 02/12/2020 Take Bactrim as directed until complete. Increase your intake., As needed for pain. May use Percocet in place of Tylenol for pain not controlled with Tylenol. Follow-up with orthopedics next week as scheduled. Continue to use a cane with ambulation. Consider using a walker at home in addition to this for increased support while walking. Seek medical attention for any worsening symptoms or any acute concerns * Attachments The following attachments cannot be sent through Care Everywhere. * Osteoarthritis ([place]) * UTI (Urinary Tract Infection): Female ([place]) documented in this encounter* Attachments The following attachments cannot be sent through Care Everywhere. * COPD Exacerbation Plan ([place]) * Heart Failure: General Info ([place]) documented in this encounter* Discharge Instr - Diet* Sherry White RN - 03/19/2020 11:59 AM EST ? Good nutrition is important when healing from an illness, injury, or surgery. Follow any nutrition recommendations given to you during your hospital stay. ? If you were given an oral nutrition supplement while in the hospital, continue to take this supplement at home. You can take it with meals, in-between meals, and/or before bedtime. These supplements can be purchased at most local grocery stores, pharmacies, and chain super-stores. ? If you have any questions about your diet or nutrition, call the hospital and ask for the dietitian. * Discharge Instr - DUSTIN* Sherry White RN - 03/19/2020 11:59 AM EST Continuity of Care Form Patient Name: Jonatan Olivarez : 1960 Admit date: 03/18/2020 Discharge date: Code Status Order: Full Code Advance Directives: Advance Care Flowsheet Documentation Date/Time Healthcare Directive Type of Healthcare Directive Copy in Chart Healthcare Agent Appointed Healthcare Agent's Name Healthcare Agent's Phone Number 03/18/20 1601 No, patient does not have an advance directive for healthcare treatment -- -- -- -- -- Admitting Physician: Ema Miller MD PCP: HILDA Land CNP Discharging Nurse: Discharging Hospital Unit/Room#: 1005/1005-01 Discharging Unit Phone Number: Emergency Contact: Extended Emergency Contact Information Primary Emergency Contact: Serafin Olivarez Mobile 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 No Past Surgical History: Past Surgical History: Procedure Laterality Date AORTA SURGERY 05/2016 [facility] CARDIAC CATHETERIZATION heart stent x3 CARDIAC CATHETERIZATION Left 02/25/2018 Right [facility]/ CARDIAC SURGERY CHOLECYSTECTOMY FEMORAL BYPASS HYSTERECTOMY VASCULAR SURGERY blood clot removed after hysto Immunization History: Immunization History Administered Date(s) Administered Influenza Virus Vaccine 12/30/2013 Influenza, Quadv, 6 mo and older, IM, PF (Flulaval, Fluarix) 06/07/2018 Pneumococcal Conjugate 13-valent ([id number]) 06/07/2018 Pneumococcal Polysaccharide ([id number]) 04/26/2019 Tdap (Boostrix, Adacel) 01/07/2017 Active Problems: Patient Active Problem List Diagnosis Code Claudication in peripheral vascular disease ([facility]) I73.9 Stable angina ([facility]) I20.8 Abnormal nuclear stress test R94.39 Smoking greater than 40 pack years F17.210 CAD S/P percutaneous coronary angioplasty I25.10, Z98.61 Ventral hernia K43.9 Tobacco abuse counseling Z71.6 Tobacco abuse Z72.0 Atherosclerosis of artery of extremity with intermittent claudication ([facility]) I70.219 Dizziness R42 Intolerance of drug Z78.9 Atherosclerosis of both carotid arteries I65.23 Hypothyroidism E03.9 Diabetic ulcer of toe of left foot associated with type 2 diabetes mellitus, with fat layer exposed([facility]) E11.621, L97.522 Diabetic polyneuropathy associated with type 2 diabetes mellitus ([facility]) E11.42 Angina, class III ([facility]) I20.9 COPD with exacerbation ([facility]) J44.1 Hx of blood clots Z86.718 CAD (coronary artery disease) I25.10 Acute respiratory failure with hypoxia and hypercapnia ([facility]) J96.01, J96.02 COPD exacerbation ([facility]) J44.1 Community acquired bacterial pneumonia J15.9 COPD (chronic obstructive pulmonary disease) ([facility]) J44.9 Diabetes mellitus ([facility]) E11.9 Hypertension I10 Acute on chronic respiratory failure with hypoxemia ([facility]) J96.21 Pneumonia due to infectious organism J18.9 AMS (altered mental status) R41.82 Acute on chronic respiratory failure with hypercapnia ([facility]) J96.22 E. coli UTI N39.0, B96.20 Unstable angina ([facility]) I20.0 Acute coronary syndrome ([facility]) I24.9 S/P cardiac cath Z98.890 S/P angioplasty with stent Z95.820 Isolation/Infection: Isolation No Isolation Patient Infection Status Infection Onset Added Last Indicated Last Indicated By Review Planned Expiration Resolved Resolved By None active Resolved COVID-19 Rule Out 03/13/20 03/13/20 03/13/20 COVID-19, PCR (Ordered) 03/14/20 Rule-Out Test Resulted COVID-19 Rule Out 10/06/19 10/06/19 10/06/19 COVID-19 (Ordered) 10/06/19 Rule- Out Test Resulted COVID-19 Rule Out 07/18/19 07/18/19 07/19/19 COVID-19 (Ordered) 07/19/19 Rule- Out Test Resulted MRSA 07/06/13 07/06/13 Oliva Tristan, INSPECTOR [employer] - TRUST ADMINISTRATOR 03/18/20 Seth Prajapati RN 07/02/2013 wound--right groin 2 negative swabs 07/2019 Nurse Assessment: Last Vital Signs: BP 121/71 Pulse 63 Temp 97.7 F (36.5 C) (Oral) Resp 16 Ht 5' 1 (1.549 m) Wt 168 lb 3.4 oz (76.3 kg) SpO2 100% BMI 31.78 kg/m Last documented pain score (0-10 scale): Pain Level: 8 Last Weight: Wt Readings from Last 1 Encounters: 03/18/20 168 lb 3.4 oz (76.3 kg) Mental Status: {IP PT MENTAL STATUS:30070} IV Access: {[facility] [place]:431431784} Nursing Mobility/ADLs: Walking {CHP DME ADLs:360664390} Transfer {CHP DME ADLs:205994746} Bathing {CHP DME ADLs:158050367} Dressing {CHP DME ADLs:875728938} Toileting {CHP DME ADLs:038902962} Feeding {CHP DME ADLs:076129641} Washer Meat {CHP DME ADLs:387522575} Med Delivery { DUSTIN MED Delivery:570968132} Wound Care Documentation and Therapy: Wound 01/24/17 Toe (Comment which one) Left #2 left great toe (Active) Number of days: 1149 Elimination: Continence: Bowel: {YES / NO:} Bladder: {YES / NO:} Urinary Catheter: {Urinary Catheter:179660737} Colostomy/Ileostomy/Ileal Conduit: {YES / NO:} Date of Last BM: No intake or output data in the 24 hours ending 03/19/20 1159 No intake/output data recorded. Safety Concerns: { DUSTNI Safety Concerns:023865432} Impairments/Disabilities: { DUSTIN Impairments/Disabilities:637015252} Nutrition Therapy: Current Nutrition Therapy: { DUSTIN Diet List:691921662} Routes of Feeding: {[facility] DME Other Feedings:909135931} Liquids: {[facility] liquid thickness:96055} Daily Fluid Restriction: {CHP DME Yes amt example:856224418} Last Modified Barium Swallow with Video (Video Swallowing Test): {Done Not Done Date:} Treatments at the Time of Hospital Discharge: Respiratory Treatments: Oxygen Therapy: {Therapy; copd oxygen:16958} Ventilator: { CC Vent List:522742244} Rehab Therapies: {THERAPEUTIC INTERVENTION:5993044058} Weight Bearing Status/Restrictions: {[facility] Weight Bearin} Other Medical Equipment (for information only, NOT a DME order): {EQUIPMENT:124851174} Other Treatments: Patient's personal belongings (please select all that are sent with patient): {[facility] DME Belongings:886312871} RN SIGNATURE: {Esignature:895601267} CASE MANAGEMENT/SOCIAL WORK SECTION Inpatient Status Date: Readmission Risk Assessment Score: Readmission Risk Risk of Unplanned Readmission: 18 Discharging to Facility/ Agency Name: Address: Phone: Fax: Dialysis Facility (if applicable) Name: Address: Dialysis Schedule: Phone: Fax: Label Remover/Car Seat Maker signature: {Esignature:115395365} PHYSICIAN SECTION Prognosis: {Prognosis:3907200261} Condition at Discharge: {[facility] Patient Condition:274250373} Rehab Potential (if transferring to Rehab): {Prognosis:0408470266} Recommended Labs or Other Treatments After Discharge: Physician Certification: I certify the above information and transfer of Jonatan Olivarez is necessary for the continuing treatment of the diagnosis listed and that she requires {Admit to Appropriate Level of Care:31442} for {GREATER/LESS:636246436} 30 days. Update Admission H&P: {CHP DME Changes in HandP:562314367} PHYSICIAN SIGNATURE: {Esignature:168016007} * Additional Instructions* Kenneth Canales MD - 03/19/2020 Follow up in the Cardiology office in 2 weeks. Call to make an appointment. Following are numbers for [facility] ([place] [facility]) [place] [facility] [place] [facility] [place] [facility] [place] [facility] [place] [facility] Follow up with your PCP in 1-2 weeks. Do not miss any doses of Aspirin and Plavix. documented in this encounter* Instructions* Fredy Billingsley APRN - [place] - 03/21/2020 Return to the emergency department for worsening symptoms. * Attachments The following attachments cannot be sent through Care Everywhere. * Hip Pain (U[place]ayan) documented in this encounter* Instructions* Marita Munoz DO - 04/05/2020 These continue to use your patches to help with pain ice or heat for 15 minutes at a time follow-upwith your back doctor tomorrow for repeat evaluation of your reoccurring back pain. Turn to ER for any worsening back pain, numbness, tingling or weakness documented in this encounter* Instructions* Karla Flor, RN - 07/25/2019 On 07/18/2019, you were admitted to the hospital because of respiratory failure secondary to an acute exacerbation of your COPD. Learning About COPD What is COPD? COPD is a lung disease that makes it hard to breathe. COPD stands for chronic obstructive pulmonarydisease. It is caused by damage to the lungs over many years, usually from smoking. COPD is a mix of two diseases: chronic bronchitis and emphysema. Other things that may put you at risk for COPD include breathing chemical fumes, dust, or air pollution over a long period of time. Secondhand smoke is also bad. In chronic bronchitis, the airways that carry air to the lungs (bronchial tubes) get inflamed and make a lot of mucus. This can narrow or block the airways, making it hard for you to breathe. In emphysema, the air sacs in your lungs are damaged and lose their stretch. Less air gets in and out of your lungs, which makes you feel short of breath. What can you expect when you have COPD? COPD gets worse over time. You cannot undo the damage to your lungs. Over time, you may find that: You get short of breath even when you do simple things like get dressed or fix a meal. It is hard to eat or exercise. You lose weight and feel weaker. But there are things you can do to prevent more damage and feel better. What are the symptoms? The main symptoms are: A cough that will not go away. Mucus that comes up when you cough. Shortness of breath that gets worse with activity. At times, your symptoms may suddenly flare up and get much worse. This is a called a COPD exacerbation (say [place] ). When this happens, your usual symptoms quickly get worse and stay bad. This can be dangerous. You may have to go to the hospital. How can you keep COPD from getting worse? Don't smoke. That is the best way to keep COPD from getting worse. If you already smoke, it is never too late to stop. If you need help quitting, talk to your doctor about stop-smoking programs and medicines. These can increase your chances of quitting for good. You can do other things to keep COPD from getting worse: Avoid bad air. Air pollution, chemical fumes, and dust also can make COPD worse. Get a flu shot every year. A shot may keep the flu from turning into something more serious, like pneumonia. A flu shot also may lower your chances of having a COPD flare-up. Get a pneumococcal vaccine shot. If you have had one before, ask your doctor if you need another dose. How is COPD treated? COPD is treated with medicines and oxygen. You also can take steps at home to stay healthy and keepyour COPD from getting worse. Medicines and oxygen therapy You may be taking medicines such as: ? Bronchodilators. These help open your airways and make breathing easier. Bronchodilators are either short-acting (work for 6 to 9 hours) or long-acting (work for 24 hours). You inhale most bronchodilators, so they start to act quickly. Always carry your quick-relief inhaler with you in case you need it while you are away from home. ? Corticosteroids. These reduce airway inflammation. They come in pill or inhaled form. You must take these medicines every day for them to work well. Take your medicines exactly as prescribed. Call your doctor if you think you are having a problem with your medicine. Oxygen therapy boosts the amount of oxygen in your blood and helps you breathe easier. Use the flowrate your doctor has recommended, and do not change it without talking to your doctor first. Other care at home If your doctor recommends it, get more exercise. Walking is a good choice. Bit by bit, increase theamount you walk every day. Try for at least 30 minutes on most days of the week. Learn breathing methods such as breathing through pursed lips to help you become less short of breath. If your doctor has not set you up with a pulmonary rehabilitation program, talk to him or her aboutwhether rehab is right for you. Rehab includes exercise programs, education about your disease and how to manage it, help with diet and other changes, and emotional support. Eat regular, healthy meals. Use bronchodilators about 1 hour before you eat to make it easier to eat. Eat several small meals instead of three large ones. Drink beverages at the end of the meal. Avoid foods that are hard to chew. Follow-up care is a sims part of your treatment and safety. Be sure to make and go to all appointments, and call your doctor if you are having problems. It's also a good idea to know your test resultsand keep a list of the medicines you take. Where can you learn more? Go to [email or web address] and sign in to your esolidar account. Enter V314 in the Search Health Information box to learn more about Learning About COPD. If you do not have an account, please click on the Sign Up Now link. Current as of: September 07, 2018Content Version: 12.4 1704-7224 [employer]. Care instructions adapted under license by [employer]. If you have questions about a medical condition or this instruction, always ask your healthcare professional. [employer] disclaims any warranty or liability for your use of this information. * Attachments The following attachments cannot be sent through Care Everywhere. * lisinopril ([place]ayan) * metoprolol (oral/injection) ([place]) * COPD ([place]ayan) documented in this encounter* Instructions* Corrine Jensen RN - 03/17/2020 Discharge Instructions for Cardiac Catheterization A cardiac catheterization is a diagnostic test used to evaluate the health of the heart and its blood vessels. The test is done with a thin catheter carefully threaded into your heart from a leg or arm artery. Most likely, you will be allowed to go home the same day as the procedure. Steps to Take at Home: Pain- apply ice to site 15-20 minutes every hour for the first 2 days. ? Showering is okay 24 hours after procedure. ? No soaking in a pool, hot tub, bath tub, or standing water for one week. ? Bleeding (outward or under the skin-hematoma)- apply firm pressure for 10-15 minutes or until thebleeding stops, then call your doctor. If unable to get bleeding stopped, call 911. ? Kidney damage- Call if you urinate less than normal, have swelling or feel puffy, and/or gain 2 or more pounds over night in the first week. If procedure was in ARM: ? You were instructed to keep wrist straight and still for two hours after the procedure. The arm and hand may now be used for normal daily activities except, avoid using the heal of hand while getting up and down from furniture for the first few days. ? Keep affected arm elevated, hand higher than elbow, while pressure dressing in place to decrease swelling. ? Pressure device: Remove in 4 hours as follows: TIME 11:45pm Remove 1 piece of tape at a time, waiting 15 -20 minutes between layers to monitor for bleeding. If dressing sticks, place wrist under cool running water to help loosen gauze from site then pat site dry. If hand feels numb, tingly, and/or cold- loosen first 1-2 layers of tape if dressing still in place. If no relief noticed, remove pressure dressing as per above instructions. Seek medical help ifno relief or if dressing already off. ? Wash area with soap and water daily while leaving it open to air, no bandaids or ointment. Diet ? Drink plenty of fluids after the test to flush the x-ray dye from your system. ? Return to your normal diet. ? No alcoholic beverages for 24 hours after the procedure. Physical Activity ? The sedative will make you sleepy. Rest until the effects have worn off. ? Nausea and vomiting from the sedative is normal and usually does not last long. ? Ask your doctor when you will be able to return to work. ? Do not drive, operate machinery, do anything that requires attention to detail, or sign importantpapers for at least 24 hours or until your doctor says it is safe. Avoid heavy lifting, physically demanding activities, and sexual activity for 2- 3 days. Lift nothing over 10 pounds (a gallon of milk is 8 pounds). Do not sit for long periods of time. Try to change positions frequently. Medications Resume taking your normal medicines as advised. Use acetaminophen (Tylenol) for pain relief. (Avoid anti-inflammatory drugs such as- ibuprofen (Advil, Motrin), naproxen sodium (Aleve), Excedrin for a few days) If you had to stop taking these medications before the procedure, ask your doctor when you can resume taking them: ? Anti-inflammatory drugs ? Blood thinners, such as warfarin (Coumadin) If you are taking medicines, follow these general guidelines: ? Take your medicine as directed. Do not change the amount or the schedule. ? Do not stop taking them without talking to your doctor. ? Do not share them. ? Know the side effects and report any to your doctor. ? Some drugs can be dangerous when mixed. Talk to a doctor or pharmacist if you are taking more than one drug. This includes ospb-bet-sykmrkj medicine and herb or dietary supplements. ? Plan ahead for refills so you don't run out. Follow-up The test results are available right after the procedure. At that point, the doctor will discuss the findings and suggest appropriate treatment options. In some cases, the results can indicate an immediate need for surgery. Schedule a follow-up appointment as directed by your doctor. Call Your Doctor If Any of the Following Occurs ? Signs of infection- including fever and chills ? Redness, swelling, increasing pain, feels warm to touch, red streak forming from site, or any discharge from the procedure site. Call 911 If Any of the Following Occurs Drooping facial muscles ? Changes in vision or speech ? Difficulty walking or using your limbs ? Change in sensation, including numbness, feeling cold, or change in color ? Extreme sweating, nausea or vomiting ? Dizziness or lightheadedness ? Chest pain ? Rapid, irregular heartbeat ? Palpitations ? Cough, shortness of breath, or difficulty breathing ? Weakness or fainting If you think you have an emergency, CALL 911 documented in this encounter Hospital Course * Oliva Tristan, INSPECTOR [employer] - TRUST ADMINISTRATOR - 03/18/2020 9:30 AM EST Discharge Summary Jonatan Olivarez : 1960 Admit date: 03/17/2020 Discharge date: 03/18/2020 Admitting Physician: Josef Brooks MD Discharge Diagnoses: Principal Problem: Unstable angina (HCC) Active Problems: Tobacco abuse counseling Hypothyroidism Hypertension Acute coronary syndrome (HCC) Resolved Problems: * No resolved hospital problems. * Hospital Course: Jonatan Olivarez is a 59 y.o. female admitted with Unstable Angina. She presentedto the ER for right sided CP with worsening SOB for several hours. She explained that she also was experiencing leg edema. She explained that she was started on Lasix one week prior however her breathing became worse so she came to the ER for evaluation. She was hypotensive on arrival. The PA did speak with Dr. Brooks who explained that she was scheduled several times for a heart cath however she has not been able to complete. She has had several visits for CP and SOB so therefore she was taken directly to the [facility] yesterday with Dr. Stephens. She was found to have severe single vessel CAD inthe RCA. She was admitted yesterday and will be transferred to [facility] this morning for Heart Cath and Stent Placement versus angioplasty with Dr. Miller. Consultants: Dr. Brooks and Dr. Stephens, Cardiology Procedures: heart cath: Severe single vessel coronary artery disease involving a 80% stenosis in the right coronary artery. Normal left ventricular end diastolic pressure. Consult to interventional cardiology for consideration of angioplasty and/or stenting of the patients severe stenosis Complications: none Discharge Condition: stable Exam: GEN: alert and oriented to person, place and time, well-developed and well- nourished, in no acute distress EYES: No gross abnormalities., PERRL and EOMI NECK: normal, supple, no lymphadenopathy, no carotid bruits PULM: clear to auscultation bilaterally- no wheezes, rales or rhonchi, normal air movement, no respiratory distress COR: regular rate & rhythm, no murmurs, no gallops, S1 normal and S2 normal ABD: soft, non-tender, non-distended, normal bowel sounds, no masses or organomegaly EXT: no cyanosis, clubbing or edema present NEURO: follows commands, LARA, no deficits SKIN: no rashes or significant lesions Significant Diagnostic Studies: Lab Results Component Value Date WBC 11.1 03/18/2020 HGB 15.3 (H) 03/18/2020 PLT 282 03/18/2020 Lab Results Component Value Date BUN 17 03/18/2020 CREATININE 1.12 (H) 03/18/2020 NA 139 03/18/2020 K 5.1 03/18/2020 CALCIUM 9.5 03/18/2020 CL 103 03/18/2020 CO2 24 03/18/2020 LABGLOM 50 (L) 03/18/2020 Lab Results Component Value Date WBCUA 10 TO 20 02/12/2020 RBCUA 0 TO 2 02/12/2020 EPITHUA 0 TO 2 02/12/2020 LEUKOCYTESUR MODERATE (A) 02/12/2020 SPECGRAV 1.020 02/12/2020 GLUCOSEU NEGATIVE 02/12/2020 KETUA NEGATIVE 02/12/2020 PROTEINU NEGATIVE 02/12/2020 HGBUR 1+ (A) 02/12/2020 CASTUA NOT REPORTED 02/12/2020 CRYSTUA NOT REPORTED 02/12/2020 BACTERIA 2+ (A) 02/12/2020 YEAST NOT REPORTED 02/12/2020 Xr Chest Portable Result Date: 03/17/2020 EXAMINATION: ONE XRAY VIEW OF THE CHEST 03/17/2020 1:07 pm COMPARISON: Chest 03/13/2020 HISTORY: ORDERING SYSTEM PROVIDED HISTORY: sob TECHNOLOGIST PROVIDED HISTORY: sob FINDINGS: Calcifications involving the aorta reflect atherosclerosis. The cardiomediastinal and hilar silhouettes appear otherwise unremarkable. Chronic appearing coarse interstitial densities predominate perihilar regions and lung bases, typical of sequela from smoking or other previous infectious/inflammatory process. The lungs appear otherwise clear. No pleural fluid evident. No pneumothorax is seen. No acute osseous abnormality is identified. No definite acute pulmonary disease. Chronic appearing coarse interstitial densities predominate perihilar regions and lung bases, typical of sequela from smoking or other previous infectious/inflammatory process. Calcific atherosclerotic disease aorta. Assessment and Plan: Patient Active Problem List Diagnosis Date Noted Unstable angina ([facility]) 03/17/2020 Priority: High Angina, class III ([facility]) 02/25/2018 Priority: High Diabetic ulcer of toe of left foot associated with type 2 diabetes mellitus, with fat layer exposed([facility]) 01/24/2017 Priority: High Class: Chronic CAD S/P percutaneous coronary angioplasty 08/30/2013 Priority: High Diabetic polyneuropathy associated with type 2 diabetes mellitus ([facility]) 01/24/2017 Priority: Medium Class: Chronic Tobacco abuse 05/27/2014 Priority: Medium Ventral hernia 08/30/2013 Priority: Medium Acute coronary syndrome ([facility]) 03/17/2020 E. coli UTI 07/20/2019 AMS (altered mental status) 07/18/2019 Acute on chronic respiratory failure with hypercapnia ([facility]) 07/18/2019 Acute on chronic respiratory failure with hypoxemia ([facility]) 04/23/2019 Pneumonia due to infectious organism 04/23/2019 COPD (chronic obstructive pulmonary disease) ([facility]) Diabetes mellitus ([facility]) Hypertension Community acquired bacterial pneumonia 04/21/2019 COPD exacerbation ([facility]) 06/06/2018 COPD with exacerbation ([facility]) 06/05/2018 Acute respiratory failure with hypoxia and hypercapnia ([facility]) 06/05/2018 Hx of blood clots CAD (coronary artery disease) Tobacco abuse counseling 05/27/2014 Atherosclerosis of artery of extremity with intermittent claudication (HCC) 05/27/2014 Dizziness 05/27/2014 Intolerance of drug 05/27/2014 Atherosclerosis of both carotid arteries 05/27/2014 Hypothyroidism 05/27/2014 Abnormal nuclear stress test 01/22/2013 Smoking greater than 40 pack years 01/22/2013 Claudication in peripheral vascular disease (HCC) 11/06/2012 Stable angina ([facility]) 11/06/2012 Discharge Medications: Sher Jonatan Phillips Home Medication Instructions LISBETH:[id number] Printed on:03/18/20 0879 Medication Information albuterol (PROVENTIL) (2.5 MG/3ML) 0.083% nebulizer solution Take 3 mLs by nebulization every 6 hours as needed for Wheezing alirocumab (PRALUENT) 75 MG/ML SOAJ injection pen Inject 1 mL into the skin every 14 days aspirin EC 81 MG EC tablet Take 1 tablet by mouth daily beclomethasone (QVAR) 80 MCG/ACT inhaler Inhale 1 puff into the lungs 2 times daily blood glucose test strips (TRUETRACK TEST) strip use as directed TO TEST BLOOD SUGAR three times a day Blood Pressure Monitoring [facility] To monitor blood pressure as needed. Please order device that is covered by insurance. clopidogrel (PLAVIX) 75 MG tablet Take 1 tablet by mouth daily glycopyrrolate-formoterol (BEVESPI AEROSPHERE) 9-4.8 MCG/ACT AERO Inhale 2 puffs into the lungs 2 times daily ibuprofen (ADVIL;MOTRIN) 800 MG tablet Take 1 tablet by mouth every 8 hours as needed for Pain Incontinence Supply Disposable [facility] Incontinence pads 150 per month. Please order pad that is covered by insurance plan levothyroxine (SYNTHROID) 150 MCG tablet Take 1 tablet by mouth daily lisinopril (PRINIVIL;ZESTRIL) 20 MG tablet Take 1 tablet by mouth daily LORazepam (ATIVAN) 0.5 MG tablet Take 0.5 mg by mouth every 6 hours as needed for Anxiety.. metoprolol tartrate (LOPRESSOR) 25 MG tablet Take 1 tablet by mouth 2 times daily nicotine (NICODERM CQ) 7 MG/24HR Place 1 patch onto the skin daily for 14 days nitroGLYCERIN (NITROSTAT) 0.[address] 1 tablet under the tongue as needed for Chest pain OXYGEN Inhale 2 L into the lungs pioglitazone (ACTOS) 15 MG tablet Take 1 tablet by mouth daily pravastatin (PRAVACHOL) 40 MG tablet Take 40 mg by mouth daily predniSONE (DELTASONE) 20 MG tablet Take 1 tablet by mouth 2 times daily for 5 days pregabalin (LYRICA) 50 MG capsule Take 30 mg by mouth 2 times daily. tiZANidine (ZANAFLEX) 4 MG tablet Take 1 tablet by mouth every 6 hours as needed (cramps) Patient Instructions: Activity: activity as tolerated Diet: cardiac diet Wound Care: none needed Other: None Disposition: Transfer to [facility] for tertiary care Follow up: Patient will be followed by HILDA Land CNP in 1-2 weeks CORE MEASURES on Discharge (if applicable) FAUSTO/ARB in CHF: Yes Statin in ME: NA ASA in ME: NA Statin in CVA: NA Antiplatelet in CVA: NA Total time spent on discharge services: 35 minutes Including the following activities: Evaluation and Management of patient Discussion with patient and/or surrogate about current care plan Coordination with Case Management and/or Car Seat Maker Coordination of care with Consultants (if applicable) Coordination of care with Receiving Facility Physician (if applicable) Completion of DME forms (if applicable) Preparation of Discharge Summary Preparation of Medication Reconciliation Preparation of Discharge Prescriptions Signed: Oliva Tristan APRN, RABBET OPERATOR-C 03/18/2020, 9:32 AM Associated attestation - Caren Mera MD - 03/18/2020 9:51 AM EST I personally evaluated and examined the patient face to face in conjunction with the APC and agree with the management and disposition of the patient. My sims findings are: Patient ID: Jonatan Olivarez [id number] Admission date: 03/17/2020 Discharge date: 03/18/2020 Admitting Physician: Caren Mera MD Primary Care Physician: HILDA Land CNP Primary Discharge Diagnoses: Patient Active Problem List Diagnosis Date Noted Unstable angina (HCC) 03/17/2020 Priority: High Angina, class III ([facility]) 02/25/2018 Priority: High Diabetic ulcer of toe of left foot associated with type 2 diabetes mellitus, with fat layer exposed([facility]) 01/24/2017 Priority: High Class: Chronic CAD S/P percutaneous coronary angioplasty 08/30/2013 Priority: High Diabetic polyneuropathy associated with type 2 diabetes mellitus (HCC) 01/24/2017 Priority: Medium Class: Chronic Ventral hernia 08/30/2013 Priority: Medium Acute coronary syndrome (HCC) 03/17/2020 E. coli UTI 07/20/2019 AMS (altered mental status) 07/18/2019 Acute on chronic respiratory failure with hypercapnia (HCC) 07/18/2019 Acute on chronic respiratory failure with hypoxemia (HCC) 04/23/2019 Pneumonia due to infectious organism 04/23/2019 COPD (chronic obstructive pulmonary disease) ([facility]) Diabetes mellitus ([facility]) Hypertension Community acquired bacterial pneumonia 04/21/2019 COPD exacerbation ([facility]) 06/06/2018 COPD with exacerbation ([facility]) 06/05/2018 Acute respiratory failure with hypoxia and hypercapnia ([facility]) 06/05/2018 Hx of blood clots CAD (coronary artery disease) Tobacco abuse counseling 05/27/2014 Tobacco abuse 05/27/2014 Atherosclerosis of artery of extremity with intermittent claudication ([facility]) 05/27/2014 Dizziness 05/27/2014 Intolerance of drug 05/27/2014 Atherosclerosis of both carotid arteries 05/27/2014 Hypothyroidism 05/27/2014 Abnormal nuclear stress test 01/22/2013 Smoking greater than 40 pack years 01/22/2013 Claudication in peripheral vascular disease ([facility]) 11/06/2012 Stable angina ([facility]) 11/06/2012 Additional Diagnoses: Diagnosis Date Asthma Back problem Bulging discs (2 or 3), 1 cracked & 1 blackened discs CAD (coronary artery disease) stents x 3; BMS to LAD 12/2010;SPARKLE to RCA 01/2011, NL LV COPD (chronic obstructive pulmonary disease) ([facility]) Depression Diabetes mellitus ([facility]) Edema chevy legs feet H/O cardiac catheterization 01/01/2011 H/O echocardiogram 09/03/2019 EF 65% evidence of mild grade I diastolic dysfunction seen Hernia of abdominal wall 2012 History of cardiac cath 03/17/2020 [facility] Michael/Dr. Stephens/Left Radial History of cardiovascular stress test 10/15/12 Abnormal myocardial perfusion study, small to mod perfusion defect of mild intensity in the anterolateral and lateral regions during stress imaging, LV function NL, no wall motion abnormalities, No significant EKG evidence of ischemia during monitoring w/o significant arrhythmias. History of echocardiogram 02/24/2018 EF 60%. Mildly increased LV wall thickness. Evidence of mild diastolic dysfunction seen. History of stress test 04/23/2017 Largerly normal myocardial perfusion imaging with soft tissue artifact, but without signficant evidence of myocardial ischemia or infarction. EF 73%. Hx of blood clots abdomen Hypertension Hypothyroidism Leg pain, bilateral rate 10 Wears partial dentures upper Review of Systems: Constitutional: negative for fevers or chills Eyes: negative for visual disturbance ENT: negative for sore throat or nasal congestion Respiratory: negative for shortness of breath or cough Cardiovascular: positive for chest pain , neg for palpitations,pnd,syncope Gastrointestinal: negative for abd pain, nausea, vomiting, diarrhea , constipation,hemetemesis,bart,blood in stool Genitourinary: negative for dysuria, urgency ,frequency,hematuria Integument/breast: negative for skin rash or lesions Neurological: negative for unilateral weakness, numbness or tingling. Skeletal Muscular: no joint pain,jont swelling,back pain Physical exam: Exam: GEN: A & O x3, no apparent distress EYES: No gross abnormalities. NECK: normal, supple, no lymphadenopathy, no carotid bruits PULM: clear to auscultation bilaterally- no wheezes, rales or rhonchi, normal air movement, no respiratory distress COR: regular rate & rhythm, no murmurs, and no gallops ABD: soft, non-tender, non-distended, normal bowel sounds, no masses or organomegaly EXT: no cyanosis, clubbing or edema present NEURO: negative SKIN: no rashes or significant lesions Hospital Course: The patient was admitted for the above. She was monitored over night,has persistant pain and trransfered to [facility] for ptca Consultants: cardiology Procedures: Lt heart cath - 80% stenosis of RCA Complications: none Significant Diagnostic Studies: Xr Chest Portable Result Date: 03/17/2020 EXAMINATION: ONE XRAY VIEW OF THE CHEST 03/17/2020 1:07 pm COMPARISON: Chest 03/13/2020 HISTORY: ORDERING SYSTEM PROVIDED HISTORY: sob TECHNOLOGIST PROVIDED HISTORY: sob FINDINGS: Calcifications involving the aorta reflect atherosclerosis. The cardiomediastinal and hilar silhouettes appear otherwise unremarkable. Chronic appearing coarse interstitial densities predominate perihilar regions and lung bases, typical of sequela from smoking or other previous infectious/inflammatory process. The lungs appear otherwise clear. No pleural fluid evident. No pneumothorax is seen. No acute osseous abnormality is identified. No definite acute pulmonary disease. Chronic appearing coarse interstitial densities predominate perihilar regions and lung bases, typical of sequela from smoking or other previous infectious/inflammatory process. Calcific atherosclerotic disease aorta. Xr Chest Portable Result Date: 03/13/2020 EXAMINATION: ONE XRAY VIEW OF THE CHEST 03/13/2020 12:25 pm COMPARISON: October 08, 2019 HISTORY: ORDERING SYSTEM PROVIDED HISTORY: dyspnea TECHNOLOGIST PROVIDED HISTORY: dyspnea FINDINGS: Cardiac silhouette is enlarged. No pneumothorax. No pleural effusion. Pulmonary vascular congestion. Interstitial prominence within the lung bases. Overall, findings are slightly progressed since previous exam. Findings as above concerning for congestive heart failure and mild edema. Recent Results (from the past 96 hour(s)) CBC Collection Time: 03/17/20 12:40 PM Result Value Ref Range WBC 11.6 (H) 3.5 - 11.3 k/uL RBC 4.89 3.95 - 5.11 m/uL Hemoglobin 13.9 11.9 - 15.1 g/dL Hematocrit 43.9 36.3 - 47.1 % MCV 89.8 82.6 - 102.9 fL MCH 28.4 25.2 - 33.5 pg MCHC 31.7 28.4 - 34.8 g/dL RDW 14.8 (H) 11.8 - 14.4 % Platelets 300 138 - 453 k/uL MPV 9.5 8.1 - 13.5 fL NRBC Automated 0.0 0.0 per 100 WBC Comprehensive Metabolic Panel Collection Time: 03/17/20 12:40 PM Result Value Ref Range Glucose 174 (H) 70 - 99 mg/dL BUN 22 8 - 23 mg/dL CREATININE 1.40 (H) 0.50 - 0.90 mg/dL Bun/Cre Ratio 16 9 - 20 Calcium 8.9 8.6 - 10.4 mg/dL Sodium 132 (L) 135 - 144 mmol/L Potassium 4.1 3.7 - 5.3 mmol/L Chloride 98 98 - 107 mmol/L CO2 28 20 - 31 mmol/L Anion Gap 6 (L) 9 - 17 mmol/L Alkaline Phosphatase 69 35 - 104 U/L ALT 7 5 - 33 U/L AST 11 <32 U/L Total Bilirubin 0.19 (L) 0.3 - 1.2 mg/dL Total Protein 6.4 6.4 - 8.3 g/dL Alb 3.8 3.5 - 5.2 g/dL Albumin/Globulin Ratio 1.5 1.0 - 2.5 GFR Non- 38 (L) >60 mL/min GFR 46 (L) >60 mL/min GFR Comment GFR Staging Brain Natriuretic Peptide Collection Time: 03/17/20 12:40 PM Result Value Ref Range Pro-BNP 1,060 (H) <300 pg/mL BNP Interpretation Pro-BNP Reference Range: Troponin Collection Time: 03/17/20 12:40 PM Result Value Ref Range Troponin, High Sensitivity 12 0 - 14 ng/L Troponin T NOT REPORTED <0.03 ng/mL Troponin Interp NOT REPORTED EKG 12 Lead Collection Time: 03/17/20 1:03 PM Result Value Ref Range Ventricular Rate 52 BPM Atrial Rate 52 BPM P-R Interval 166 ms QRS Duration 74 ms Q-T Interval 426 ms QTc Calculation (Bazett) 396 ms P [place] 55 degrees R [place] 55 degrees T [place] 60 degrees Troponin Collection Time: 03/17/20 8:30 PM Result Value Ref Range Troponin, High Sensitivity 9 0 - 14 ng/L Troponin T NOT REPORTED <0.03 ng/mL Troponin Interp NOT REPORTED Troponin Collection Time: 03/17/20 11:53 PM Result Value Ref Range Troponin, High Sensitivity 12 0 - 14 ng/L Troponin T NOT REPORTED <0.03 ng/mL Troponin Interp NOT REPORTED CBC Collection Time: 03/18/20 5:20 AM Result Value Ref Range WBC 11.1 3.5 - 11.3 k/uL RBC 5.45 (H) 3.95 - 5.11 m/uL Hemoglobin 15.3 (H) 11.9 - 15.1 g/dL Hematocrit 48.7 (H) 36.3 - 47.1 % MCV 89.4 82.6 - 102.9 fL MCH 28.1 25.2 - 33.5 pg MCHC 31.4 28.4 - 34.8 g/dL RDW 15.1 (H) 11.8 - 14.4 % Platelets 282 138 - 453 k/uL MPV 9.4 8.1 - 13.5 fL NRBC Automated 0.0 0.0 per 100 WBC Basic Metabolic Panel w/ Reflex to MG Collection Time: 03/18/20 5:20 AM Result Value Ref Range Glucose 95 70 - 99 mg/dL BUN 17 8 - 23 mg/dL CREATININE 1.12 (H) 0.50 - 0.90 mg/dL Bun/Cre Ratio 15 9 - 20 Calcium 9.5 8.6 - 10.4 mg/dL Sodium 139 135 - 144 mmol/L Potassium 5.1 3.7 - 5.3 mmol/L Chloride 103 98 - 107 mmol/L CO2 24 20 - 31 mmol/L Anion Gap 12 9 - 17 mmol/L GFR Non- 50 (L) >60 mL/min GFR >60 >60 mL/min GFR Comment GFR Staging Discharge Condition: stable Disposition: [facility] Discharge Medications: Jonatan Olivarez Home Medication Instructions LISBETH:[id number] Printed on:03/18/20 0908 Medication Information albuterol (PROVENTIL) (2.5 MG/3ML) 0.083% nebulizer solution Take 3 mLs by nebulization every 6 hours as needed for Wheezing alirocumab (PRALUENT) 75 MG/ML SOAJ injection pen Inject 1 mL into the skin every 14 days aspirin EC 81 MG EC tablet Take 1 tablet by mouth daily beclomethasone (QVAR) 80 MCG/ACT inhaler Inhale 1 puff into the lungs 2 times daily blood glucose test strips (TRUETRACK TEST) strip use as directed TO TEST BLOOD SUGAR three times a day Blood Pressure Monitoring [facility] [place] To monitor blood pressure as needed. Please order device that is covered by insurance. clopidogrel (PLAVIX) 75 MG tablet Take 1 tablet by mouth daily glycopyrrolate-formoterol (BEVESPI AEROSPHERE) 9-4.8 MCG/ACT AERO Inhale 2 puffs into the lungs 2 times daily ibuprofen (ADVIL;MOTRIN) 800 MG tablet Take 1 tablet by mouth every 8 hours as needed for Pain Incontinence Supply Disposable [facility] [place] Incontinence pads 150 per month. Please order pad that is covered by insurance plan levothyroxine (SYNTHROID) 150 MCG tablet Take 1 tablet by mouth daily lisinopril (PRINIVIL;ZESTRIL) 20 MG tablet Take 1 tablet by mouth daily LORazepam (ATIVAN) 0.5 MG tablet Take 0.5 mg by mouth every 6 hours as needed for Anxiety.. metoprolol tartrate (LOPRESSOR) 25 MG tablet Take 1 tablet by mouth 2 times daily nicotine (NICODERM CQ) 7 MG/24HR Place 1 patch onto the skin daily for 14 days nitroGLYCERIN (NITROSTAT) 0.[address] 1 tablet under the tongue as needed for Chest pain OXYGEN Inhale 2 L into the lungs pioglitazone (ACTOS) 15 MG tablet Take 1 tablet by mouth daily pravastatin (PRAVACHOL) 40 MG tablet Take 40 mg by mouth daily predniSONE (DELTASONE) 20 MG tablet Take 1 tablet by mouth 2 times daily for 5 days pregabalin (LYRICA) 50 MG capsule Take 30 mg by mouth 2 times daily. tiZANidine (ZANAFLEX) 4 MG tablet Take 1 tablet by mouth every 6 hours as needed (cramps) Resume all home medications unless otherwise directed Add Stop taking Patient Instructions: Activity: activity as tolerated Diet: cardiac diet Wound Care: none needed Other: Follow up with PCP and Dr Brooks in 2 wks as directed Time Spent on discharge services is 35 minutes in the examination, evaluation, counseling and review of medications and discharge plan. Signed: Caren Mera M.D. 03/18/2020 9:48 AM I reviewed and agree with the findings and plan documented in her note . Caren Mera MD documented in this encounter* Joseph Hope DO - 03/19/2020 11:19 AM EST Eliseo Rechecker Discharge Note Name: Jonatan Olivarez Date of : 1960 Social Security Number: [id number] Date of Admission: 03/18/2020 Date of Discharge: 03/19/2020 Admitting physician: Ema Miller MD Discharge Attending: Kenneth Canales MD Primary Care Physician: Vahid Nagy, INSPECTOR [employer] - TRUST ADMINISTRATOR Consultants: Cardiology Discharge to Home Condition at discharge: Stable HOSPITAL ADMISSION PROBLEM LIST: Patient Active Problem List Diagnosis Claudication in peripheral vascular disease (HCC) Stable angina ([facility]) Abnormal nuclear stress test Smoking greater than 40 pack years CAD S/P percutaneous coronary angioplasty Ventral hernia Tobacco abuse counseling Tobacco abuse Atherosclerosis of artery of extremity with intermittent claudication ([facility]) Dizziness Intolerance of drug Atherosclerosis of both carotid arteries Hypothyroidism Diabetic ulcer of toe of left foot associated with type 2 diabetes mellitus, with fat layer exposed([facility]) Diabetic polyneuropathy associated with type 2 diabetes mellitus ([facility]) Angina, class III ([facility]) COPD with exacerbation ([facility]) Hx of blood clots CAD (coronary artery disease) Acute respiratory failure with hypoxia and hypercapnia ([facility]) COPD exacerbation ([facility]) Community acquired bacterial pneumonia COPD (chronic obstructive pulmonary disease) ([facility]) Diabetes mellitus ([facility]) Hypertension Acute on chronic respiratory failure with hypoxemia ([facility]) Pneumonia due to infectious organism AMS (altered mental status) Acute on chronic respiratory failure with hypercapnia ([facility]) E. coli UTI Unstable angina ([facility]) Acute coronary syndrome ([facility]) S/P cardiac cath S/P angioplasty with stent Procedures:cardiac catheterization HOSPITAL COURSE : The patient was admitted for: Hospital Procedures if any: cardiac cath +/- PCI Medications changes recommendation: Please see below Cath 03/18/20: Successful PTCA -SPARKLE mid-distal RCA Residual moderate disease in LAD and LCX (50-60% stenosis) Discharge exam: Vitals: 03/19/20 0730 BP: 121/71 Pulse: 63 Resp: 16 Temp: 97.7 F (36.5 C) SpO2: 100% Neuro: normal Chest: Clear to ausculation. No wheezing. Cardiac: Cor RRR Abdomen/groin: soft, non-tender, without masses or organomegaly Lower extremity edema: none Follow up with primary care provider 1 week Follow up with cardiology 4 weeks Follow up with other technical support consultant physicians at their directions. Discharge Medications: Jonatan Olivarez Home Medication Instructions LISBETH:[id number] Printed on:03/19/20 1584 Medication Information albuterol (PROVENTIL) (2.5 MG/3ML) 0.083% nebulizer solution Take 3 mLs by nebulization every 6 hours as needed for Wheezing alirocumab (PRALUENT) 75 MG/ML SOAJ injection pen Inject 1 mL into the skin every 14 days aspirin EC 81 MG EC tablet Take 1 tablet by mouth daily beclomethasone (QVAR) 80 MCG/ACT inhaler Inhale 1 puff into the lungs 2 times daily blood glucose test strips (TRUETRACK TEST) strip use as directed TO TEST BLOOD SUGAR three times a day Blood Pressure Monitoring [facility] [place] To monitor blood pressure as needed. Please order device that is covered by insurance. clopidogrel (PLAVIX) 75 MG tablet Take 1 tablet by mouth daily glycopyrrolate-formoterol (BEVESPI AEROSPHERE) 9-4.8 MCG/ACT AERO Inhale 2 puffs into the lungs 2 times daily ibuprofen (ADVIL;MOTRIN) 800 MG tablet Take 1 tablet by mouth every 8 hours as needed for Pain Incontinence Supply Disposable [facility] [place] [facility] Incontinence pads 150 per month. Please order pad that is covered by insurance plan levothyroxine (SYNTHROID) 150 MCG tablet Take 1 tablet by mouth daily lisinopril (PRINIVIL;ZESTRIL) 20 MG tablet Take 1 tablet by mouth daily LORazepam (ATIVAN) 0.5 MG tablet Take 0.5 mg by mouth every 6 hours as needed for Anxiety.. metoprolol tartrate (LOPRESSOR) 25 MG tablet Take 1 tablet by mouth 2 times daily nicotine (NICODERM CQ) 7 MG/24HR Place 1 patch onto the skin daily for 14 days nitroGLYCERIN (NITROSTAT) 0.[address] 1 tablet under the tongue as needed for Chest pain OXYGEN Inhale 2 L into the lungs pioglitazone (ACTOS) 15 MG tablet Take 1 tablet by mouth daily pravastatin (PRAVACHOL) 40 MG tablet Take 40 mg by mouth daily pregabalin (LYRICA) 50 MG capsule Take 30 mg by mouth 2 times daily. tiZANidine (ZANAFLEX) 4 MG tablet Take 1 tablet by mouth every 6 hours as needed (cramps) Current Facility-Administered Medications: tiZANidine (ZANAFLEX) tablet 4 mg, 4 mg, Oral, Q6H PRN metoprolol tartrate (LOPRESSOR) tablet 25 mg, 25 mg, Oral, BID lisinopril (PRINIVIL;ZESTRIL) tablet 20 mg, 20 mg, Oral, Daily aspirin EC tablet 81 mg, 81 mg, Oral, Daily clopidogrel (PLAVIX) tablet 75 mg, 75 mg, Oral, Daily pravastatin (PRAVACHOL) tablet 40 mg, 40 mg, Oral, Daily sodium chloride flush 0.9 % injection 10 mL, 10 mL, Intravenous, 2 times per day sodium chloride flush 0.9 % injection 10 mL, 10 mL, Intravenous, PRN acetaminophen (TYLENOL) tablet 650 mg, 650 mg, Oral, Q4H PRN hydrALAZINE (APRESOLINE) injection 10 mg, 10 mg, Intravenous, Q10 Min PRN labetalol (NORMODYNE;TRANDATE) injection 10 mg, 10 mg, Intravenous, Q30 Min PRN insulin lispro (HUMALOG) injection vial 0-12 Units, 0-12 Units, Subcutaneous, TID WC insulin lispro (HUMALOG) injection vial 0-6 Units, 0-6 Units, Subcutaneous, Nightly glucose (GLUTOSE) 40 % oral gel 15 g, 15 g, Oral, PRN dextrose 50 % IV solution, 12.5 g, Intravenous, PRN glucagon (rDNA) injection 1 mg, 1 mg, Intramuscular, PRN dextrose 5 % solution, 100 mL/hr, Intravenous, PRN LORazepam (ATIVAN) tablet 0.5 mg, 0.5 mg, Oral, Q6H PRN pregabalin (LYRICA) capsule 50 mg, 50 mg, Oral, BID Facility-Administered Medications Ordered in Other Encounters: 0.9 % sodium chloride infusion, , Intravenous, Continuous sodium chloride flush 0.9 % injection 10 mL, 10 mL, Intravenous, 2 times per day sodium chloride flush 0.9 % injection 10 mL, 10 mL, Intravenous, PRN 0.9 % sodium chloride infusion, , Intravenous, Continuous diphenhydrAMINE (BENADRYL) capsule 50 mg, 50 mg, Oral, Once sodium chloride flush 0.9 % injection 10 mL, 10 mL, Intravenous, 2 times per day sodium chloride flush 0.9 % injection 10 mL, 10 mL, Intravenous, PRN 0.9 % sodium chloride infusion, , Intravenous, Continuous 0.9 % sodium chloride infusion, , Intravenous, Continuous acetaminophen (TYLENOL) tablet 650 mg, 650 mg, Oral, Q4H PRN Coronary Discharge Core Measure: Please indicate the medication given by X, and if not the reasons not given: Not Given Reason Given Beta Blockers x FAUSTO-I x Statins x ASA x OAP (Plavix/Effient/Brilinta) x Patient is stable and hemodynamically stable without angina. Has residual lesions in LAD/Lcx and will monitor as outpatient in case becomes symptomatic again. She will be discharged on ASA/Plavix. Discussed with patient and nursing. Medications and discharge instructions reviewed with patient and nursing. [place] Rechecker Attending Dentist Addendum: I have reviewed and performed the history, physical, subjective, objective, assessment, and plan with the resident/fellow and agree with the note. I performed the history and physical personally. I have made changes to the note above as needed. Thank you for allowing me to participate in the care of this patient, please do not hesitate to call if you have any questions. Joseph Hope DO, FACAlan, KESHA JUDD [place] Rechecker [facility] documented in this encounter Chief Complaint and Reason for Visit Chief Complaint Chest Pain Reason for Visit Chest pain Heart failure Hypotension Hypoxia Nonspecific ST-T wave electrocardiographic changes Pulmonary emboli Chief Complaint Chest Pain Chest Pain Chest PainReason for VisitAnemia CAD (coronary artery disease) Chest pain H/O heart artery stent Hypotension Hypoxia Nonspecific ST-T wave electrocardiographic changes Pulmonary emboli Additional Source Comments INFORMATION SOURCE (unrecogn ized section and content) DATE CREATED AUTHOR 10/24/2017 [facility] DATE CREATED AUTHOR AUTHOR'S ORGANIZ ATION 03/05/2019 [facility] DATE CREATED AUTHOR AUTHOR'S ORGANIZ ATION 12/29/2019 [facility] DATE CREATED AUTHOR AUTHOR'S ORGANIZ ATION 10/07/2021 [facility] User Experience Lead DATE CREATED AUTHOR AUTHOR'S ORGANIZ ATION 12/27/2021 [facility] DATE CREATED AUTHOR AUTHOR'S ORGANIZ ATION 06/09/2022 [facility] DATE CREATED AUTHOR AUTHOR'S ORGANIZ ATION 11/24/2023 [facility] DATE CREATED AUTHOR AUTHOR'S ORGANIZ ATION 02/02/2024 [facility] DATE CREATED AUTHOR AUTHOR'S ORGANIZ ATION 11/21/2024 [facility] DATE CREATED AUTHOR AUTHOR'S ORGANIZ ATION 01/08/2025 [facility] DATE CREATED AUTHOR AUTHOR'S ORGANIZ ATION 01/15/2025 [facility] Evaluations & Outcomes (unre cognized section and content) Includes: Evaluations & Outcomes for active GoalsNo Outcomes Recorded Includes: Evaluations & Outcomes for active GoalsNo Outcomes Recorded Includes: Evaluations & Outcomes for active GoalsNo Outcomes Recorded Includes: Evaluations & Outcomes for active GoalsNo Outcomes Recorded Includes: Evaluations & Outcomes for active GoalsNo Outcomes Recorded Includes: Evaluations & Outcomes for active GoalsNo Outcomes Recorded Includes: Evaluations & Outcomes for active GoalsNo Outcomes Recorded Includes: Evaluations & Outcomes for active GoalsNo Outcomes Recorded Includes: Evaluations & Outcomes for active GoalsNo Outcomes Recorded Includes: Evaluations & Outcomes for active GoalsNo Outcomes Recorded Includes: Evaluations & Outcomes for active GoalsNo Outcomes Recorded Includes: Evaluations & Outcomes for active GoalsNo Outcomes Recorded Includes: Evaluations & Outcomes for active GoalsNo Outcomes Recorded Includes: Evaluations & Outcomes for active GoalsNo Outcomes Recorded Includes: Evaluations & Outcomes for active GoalsNo Outcomes Recorded Includes: Evaluations & Outcomes for active GoalsNo Outcomes Recorded Includes: Evaluations & Outcomes for active GoalsNo Outcomes Recorded Includes: Evaluations & Outcomes for active GoalsNo Outcomes Recorded Includes: Evaluations & Outcomes for active GoalsNo Outcomes Recorded Includes: Evaluations & Outcomes for active GoalsNo Outcomes Recorded Includes: Evaluations & Outcomes for active GoalsNo Outcomes Recorded Includes: Evaluations & Outcomes for active GoalsNo Outcomes Recorded Includes: Evaluations & Outcomes for active GoalsNo Outcomes Recorded Includes: Evaluations & Outcomes for active GoalsNo Outcomes Recorded Includes: Evaluations & Outcomes for active GoalsNo Outcomes Recorded Includes: Evaluations & Outcomes for active GoalsNo Outcomes Recorded Includes: Evaluations & Outcomes for active GoalsNo Outcomes Recorded Includes: Evaluations & Outcomes for active GoalsNo Outcomes Recorded Includes: Evaluations & Outcomes for active GoalsNo Outcomes Recorded Includes: Evaluations & Outcomes for active GoalsNo Outcomes Recorded Includes: Evaluations & Outcomes for active GoalsNo Outcomes Recorded Includes: Evaluations & Outcomes for active GoalsNo Outcomes Recorded Includes: Evaluations & Outcomes for active GoalsNo Outcomes Recorded Reason for Visit (unrecogniz ed section and content) ReasonCommentsFallapprox 2 hrs 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 Patient states pain started after she recieved the mri results.Reason CommentsHand Injurypt states she dropped canned foods on her left hand a few days agoReasonCommentsFallPt found on floor by family this AM, per EMSAltered Mental StatusDecreased LOC, confustion at homeReasonCommentsDizzinesssudden onset 30 min PTAStatusReasonSpecialtyDiagnoses / ProceduresReferred By Contact Referred To ContactNot Required - RecondoCardiology / Echocardiography Diagnoses ASHD (arteriosclerotic heart disease) S/P angioplasty with stent Mixed hyperlipidemia Essential hypertension Tobacco abuse counseling Abdominal aortic aneurysm (AAA) without rupture (HCC) PVD (peripheral vascular disease) (HCC) Bilateral carotid artery disease, unspecified type (HCC) Lightheadedness Dizziness Procedures Echo 2D w doppler w color complete Josef Brooks MD [address] [place] [address] [place] [address] [facility] Echo [address] [place] [address] StatusReasonSpecialtyDiagnoses / ProceduresReferred By ContactReferred To ContactNot Required - RecondoCardiology / Stress Lab Diagnoses ASHD (arteriosclerotic heart disease) S/P angioplasty with stent Mixed hyperlipidemia Essential hypertension Tobacco abuse counseling Abdominal aortic aneurysm (AAA) without rupture (HCC) PVD (peripheral vascular disease) (HCC) Bilateral carotid artery disease, unspecified type (HCC) Lightheadedness Dizziness Procedures Stress test (Lexiscan) Josef Brooks MD [address] [place] [address] [place] [address] [facility] Stress Lab [address] [place] [address] StatusReasonSpecialtyDiagnoses / ProceduresReferred By ContactReferred To ContactAuthorizedCardiology Diagnoses ASHD (arteriosclerotic heart disease) S/P angioplasty with stent Mixed hyperlipidemia Essential hypertension Tobacco abuse counseling Bilateral carotid artery disease, unspecified type (HCC) PVD (peripheral vascular disease) (HCC) Abdominal aortic aneurysm (AAA) without rupture (HCC) SOB (shortness of breath) Procedures Referral to Cardiac Cath [place] CATH PLMT L HRT & ARTS W/NJX & ANGIO IMG S&I Josef Brooks MD [address] [place] [address] [place] [address] ReasonCommentsBack PainLumbar, chronic, worse since this AM. Pt reports weakness in legsCoughChronic, history of COPD and pneumonia. Pt wears O2 at home, but did not wear to the hospitalReasonCommentsShortness of BreathIncrease in SOB ReasonCommentsGroin Painrt groin pain, was here yeserday for same thing, saw family doctor today did nothing, so back here in ERStatusReasonSpecialty Diagnoses / ProceduresReferred By ContactReferred To Contact Diagnoses Abnormal stress test Procedures HC L HEART W LV & CORONARY [facility] ReasonCommentsAbdominal PainRLQ pain, ongoing for 4 weeks. Pt states she has been seen for the same here in the ERReasonCommentsShortness of Breathhx of copd sob increased over the past two daysCoughHip Painleft hip painReasonComments Chest Painrt sided chest pain that started about 1 hour PTAShortness of Breath started 1 hour PTAStatusReasonSpecialtyDiagnoses / ProceduresReferred By Contact Referred To Contact Diagnoses S/P cardiac cath S/P angioplasty with stent cardiac cath tech Procedures DIAGNOSTIC CARDIAC CONVEYOR FEEDER OFFBEARER PROCEDURE Ema Miller MD [address] [address] [facility] ReasonCommentsHip Painpt states onset 2 days ago, no known injury.Otherpt states she had one heart stent placed on Saturday at [facility]. Pt states I have been feeling funny ReasonCommentsHip Painfell 2 days ago on rt hip C/O pain in rt hip and rt posterior back. Denies LOCStatusReasonSpecialtyDiagnoses / Procedures Referred By ContactReferred To ContactClosedRadiology Diagnoses Spinal stenosis, lumbar region without neurogenic claudication Other intervertebral disc degeneration, lumbar region Spinal stenosis, lumbar region without neurogenic claudication Procedures HC MRI-SPINE LUMBAR WO CONTRAST Deion Fritz, INSPECT[employer] - [employer] ADMINISTRATOR [address] [place] [address] Counts Include [address] [facility] [address] [place] [address] StatusReasonSpecialtyDiagnoses / ProceduresReferred By ContactReferred To Contact Diagnoses COVID-19 COVID-19 acute resp failure with hypoxemia Chago Boyd DO [address] [facility] [address] [place] [address] [facility] StatusReasonSpecialtyDiagnoses / ProceduresReferred By ContactReferred To ContactAuthorizedCardiology / IP Unit Diagnoses Abnormal stress test CAD S/P percutaneous coronary angioplasty Essential hypertension Mixed hyperlipidemia Tobacco abuse counseling PVD (peripheral vascular disease) (HCC) Bilateral carotid artery disease, unspecified type (HCC) Procedures Referral to Cardiac Cath [place] CATH PLMT L HRT & ARTS W/NJX & ANGIO IMG S&I Josef Brooks MD [address] [place] [address] [place] [address] [facility] [address] [place] [address] ReasonCommentsGroin Painpt states right sided, onset for a monthReasonComments FallOnset VAMP LINER. Pt fell to floor in bedroom after standing this AM. C/o back pain, right knee pain and abdominalReasonCommentsAbdominal PainNausea & Vomiting ReasonCommentsFallTrip and fall, yesterday at home. C/o tailbone pain, right knee pain, headache. Possible LOC, but pt is unsure.ReasonCommentsLeg Pain chronic right leg pain,Shortness of Breathincreased sob started last night, usually wears 2LNC today arrived on room airSpecialtyDiagnoses / Procedures Referred By ContactReferred To ContactRadiology Diagnoses Right sided abdominal pain Procedures CT ABDOMEN PELVIS W IV CONTRAST Additional Contrast? Oral CT ABDOMEN PELVIS W IV CONTRAST Additional Contrast? Oral Osmar Rodriguez MD [address] [facility] [address] [place] [address] Referral IDStatusReasonStart DateExpiration DateVisits RequestedVisits [id number] 2 days ago. C/o left shoulder bilateral knee painReasonCommentsCoughOnset 1 week ago, productive. Pt saw PCP 5 days ago and was ordered to have a chest Xray, but did not yet.StatusReasonSpecialtyDiagnoses / ProceduresReferred By ContactReferred To Contact Diagnoses Community acquired bacterial pneumonia Gordo De Santiago MD [address] [place] [address], [place] [address] [facility] SpecialtyDiagnoses / ProceduresReferred By ContactReferred To ContactRadiology Diagnoses Chronic right hip pain Procedures MRI HIP RIGHT WO CONTRAST Osmar Rodriguez MD [address] [place] [address] [address] [place] [address] Referral IDStatusReasonStart DateExpiration DateVisits RequestedVisits [id number] / Procedures Referred By ContactReferred To ContactRadiology Diagnoses Recurrent abdominal hernia without obstruction or gangrene, unspecified hernia type Right lower quadrant abdominal mass Procedures CT ABDOMEN PELVIS W IV CONTRAST Additional Contrast? Oral Osmar Rodriguez MD [address] [place] [address] [address] [place] [address] Referral IDStatusReasonStart DateExpiration DateVisits RequestedVisits [id number] MassComplains of left abd mass/painReasonCommentsFallPatient fell on Saturday and injured lower back and tailbone areaReasonCommentsTailbone PainPt arrives with c/o tailbone pain that she states after she fell approx 1 week ago. Pt states she has been treated in this ER but pain is persistingReasonOnset DateCommentsHospital Follow-up4ReasonCommentsWound CheckPt recently d/c from this facility approx 2 days ago for antibiotics r/t left foot wound. Pt arrived via EMS from home with c/o wound worsening drainage, discoloration, & pain. Pt c/o fatigue andnausea. Pt denies fevers. Pt states taking Augmentin. Pt administered 50 mcg of Fentanyl VAMP LINER.SpecialtyDiagnoses / ProceduresReferred By ContactReferred To Contact Diagnoses Unable to care for self Osmar Rodriguez MD [address] [facility] [place] [address] Phone: tel: fax: [facility] [address] [place] [address] Referral IDStatusReasonSt[place] DateExpiration DateVisits RequestedVisits [id number] PainRight hip pain ongoing the past few days. Patient fell about a month ago. Patient also reports leftfoot ulcer that wont heal. Patient was given Fentanyl 25mcg by EMSReasonCommentsShortness of BreathEMS reports that pt was 72% 2L NC upon arrival at nursing facility. SpecialtyDiagnoses / ProceduresReferred By ContactReferred To Contact Diagnoses SOB (shortness of breath) Hypoxia Acute cystitis without hematuria Nat Reynolds MD [address] [facility] [place] [address] Phone: tel: fax: Referral IDStatusReasonThomasville DateExpiration DateVisits RequestedVisits [id number] Medical History (unrecognize d section and content) Description Patient gave [facility]09/2019 History of hypertension 02/19/2019 A recent immunization for flu 01/22/2019 History of diabetes mellitus 07/28/2018 Previous hospitalizations 06/27/2018 History of herniated intervertebral disc 04/29/2018 History of intervertebral disc degenerat ion 04/29/2018 History of lumbago (CHRONIC) 04/29/2018 Recent change in medical history 019 No history of cancer 04/29/2018 No physical trauma 04/29/2018 History of PTCA was performed 04/29/2018 Cronic Lumbar pain ~Dizziness ~Hypothyro idism 04/29/2018 Ordered Prescriptions (unrec ognized section and content) PrescriptionSigDispensedRefillsStart DateEnd Date metoprolol tartrate (LOPRESSOR) 25 MG tablet Take 1 tablet by mouth 2 times daily 180 tablet aspirin EC 81 MG EC tablet Take 1 tablet by mouth daily 30 tablet blood glucose test strips (TRUETRACK TEST) strip use as directed TO TEST BLOOD SUGAR three times a day 300 each PrescriptionSigDispensedRefillsStart DateEnd Date traMADol (ULTRAM) 50 MG tablet Indications:Sacroiliac joint painTake 1 tablet by mouth every 4 hours as needed for Pain for up to 3 days. Intended supply: 3 days. Take lowest dose possible to manage pain 18 tablet /PrescriptionSigDispensedRefillsStart DateEnd oxyCODONE-acetaminophen (PERCOCET) 5-325 MG per tablet Indications:Acute right-sided low back pain without sciaticaTake 1 tablet by mouth every 6 hours as needed for Pain for up to 3 days. Intended supply: 3 days. Take lowest dose possible to manage pain 4 tablet /10/2020 lidocaine (LIDODERM) 5 % Place 1 patch onto the skin daily 12 hours on, 12 hours off. 10 patch rescriptionSigDispensedRefillsSt DateEnd ondansetron (ZOFRAN ODT) 4 MG disintegrating tablet Take 1 tablet by mouth every 8 hours as needed for Nausea or Vomiting 14 tablet oxyCODONE-acetaminophen (PERCOCET) 5-325 MG per tablet Indications:Pelvic painTake 1 tablet by mouth every 6 hours as needed for Pain for up to 3 days. Intended supply: 3 days. Take lowest dose possible to manage pain 12 tablet /rescriptionSigDispensedRefillsStart DateEnd Date methocarbamol (ROBAXIN) 500 MG tablet Take 1 tablet by mouth 4 times daily as needed (Muscle pain/spasm) 40 tablet / oxyCODONE-acetaminophen (PERCOCET) 5-325 MG per tablet Indications:Multiple contusionsTake 1 tablet by mouth every 6 hours as needed for Pain for up to 3 days. Intended supply: 3 days. Take lowest dose possible to manage pain 12 tablet //rescriptionSigDispensedRefillsStart DateEnd lidocaine (LIDODERM) 5 % Place 1 patch onto the skin daily 12 hours on, 12 hours off. 10 patch rescriptionSigDispensedRefillsStart DateEnd doxycycline hyclate (VIBRA-TABS) 100 MG tablet Take 1 tablet by mouth 2 times daily for 10 days 20 tablet / furosemide (LASIX) 20 MG tablet Take 1 tablet by mouth daily 30 tablet rescriptionSigDispensedRefillsStart DateEnd naproxen (NAPROSYN) 500 MG tablet Take 1 tablet by mouth 2 times daily as needed for Pain 30 tablet rescriptionSigDispense QuantityRefillsLast FilledStart DateEnd povidone-iodine (BETADINE) 10 % external solution Indications:Ulcer of both feet with fat layer exposed (HCC)Apply to wounds of legs, feet and toes daily. Let dry and cover with dry dressings 473 mL / amoxicillin-clavulanate (AUGMENTIN) 875-125 MG per tablet Take 1 tablet by mouth 2 times daily for 14 days 28 tablet / metFORMIN (GLUCOPHAGE) 500 MG tablet Take 1 tablet by mouth 2 times daily (with meals) 60 tablet PrescriptionSigDispense QuantityRefillsLast FilledStart End amoxicillin-clavulanate (AUGMENTIN) 875-125 MG per tablet Take 1 tablet by mouth 2 times daily for 7 days 14 tablet / nicotine (NICODERM CQ) 21 MG/24HR Place 1 patch onto the skin daily08/18/2024 docusate sodium (COLACE, DULCOLAX) 100 MG CAPS Take 100 mg by mouth 2 times daily as needed for Xfdzyvthczsm21/19/2025 ferrous sulfate (IRON 325) 325 (65 Fe) MG tablet Take 1 tablet by mouth daily (with breakfast)08/18/2024 benzonatate (TESSALON) 200 MG capsule Take 1 capsule by mouth 3 times daily for 7 days/ empagliflozin (JARDIANCE) 10 MG tablet Take 1 tablet by mouth daily08/18/2024 oxyCODONE-acetaminophen (PERCOCET) 7.5-325 MG per tablet Indications:Chronic right hip pain,Lumbar back pain with radiculopathy affecting right lower extremity,Chronic left hip pain,Chronic pain syndromeTake 1 tablet by mouth every 6 hours as needed for Pain for up to 3 days. Fill when due. OARS/PMDP reviewed. Intended supply: 30 days Max Daily Amount: 4 tablets 12 tablet /PrescriptionSigDispense QuantityRefillsLast FilledStart Date End Date lidocaine (LIDODERM) 5 % Place 1 patch onto the skin daily for 10 days 12 hours on, 12 hours off. 10 patch / ibuprofen (ADVIL;MOTRIN) 800 MG tablet Indications:Chronic right hip pain,Lumbar back pain with radiculopathy affecting right lower extremity,Chronic left hip pain,Chronic pain syndrome,Sacral pain Take 1 tablet by mouth 3 times daily (with meals) 90 tablet predniSONE (DELTASONE) 20 MG tablet Take 1 tablet by mouth 2 times daily for 5 days 10 tablet 11/19// Scheduled Active and Recently Administ ered Medications (unrecognized section and content) Medication Order// 0.9 % sodium chloride bolus (COMPLETED) 1,000 mL (12.3 mL/kg), IntraVENous, at 1,000 mL/hr, Administer over 1 Hours, ONCE, On 12/04/20 [id number], For 1 dose * 1700 (New Bag - Provider: Beba Guerrero, RN) * 1900 (Stopped - Provider: La Stevens RN) morphine injection 4 mg (COMPLETED) 4 mg, IntraVENous, ONCE, On 12/04/20 at 1730, For 1 dose, If oral and IV narcotics ordered, use oral first and only use IV if oral is ineffective or cannot take oral. Do Not give oral and IV within1 hour of each other unless specifically ordered. * 1725 (Given - Provider: Beba Guerrero, DARI) Medication Order// iopamidol (ISOVUE-370) 76 % injection 75 mL (COMPLETED) 75 mL, IntraVENous, IMG ONCE PRN, Other, Starting on Sat12/04/20 at 1738, For 1 dose * 1740 (Given - Provider: Delma Calderon) Medication Order// morphine injection 4 mg (COMPLETED) 4 mg, IntraVENous, ONCE, On Jenn 01/12/21 at 1230, For 1 dose, If oral and IV narcotics ordered, useoral first and only use IV if oral is ineffective or cannot take oral. Do Not give oral and IV within 1 hour of each other unless specifically ordered. * 1324 (Given - Provider: Erika Ramesh RN) ondansetron (ZOFRAN) injection 4 mg (COMPLETED) 4 mg, IntraVENous, ONCE, On Jenn 01/12/21 at 1230, For 1 dose * 1324 (Given - Provider: Erika Ramesh RN) Medication Order// btteikoj-dwuextztrq-desgpgmux (NEOSPORIN) 400-5-5000 ointment Starting on Jenn 01/12/21 at 1517, For 1 dose, Erika Ramesh: cabinet override * 1530 (Due) Medication Order// 0.9 % sodium chloride bolus (COMPLETED) 1,000 mL, IntraVENous, at 1,000 mL/hr, Administer over 1 Hours, ONCE, On Sat01/17/21 at 0100, For 1 dose * 0132 (New Bag - Provider: La Stevens, DARI) * 0700 (Stopped - Provider: Bela Morelos, DARI) famotidine (PEPCID) injection 20 mg (COMPLETED) 20 mg, IntraVENous, ONCE, On Sat01/17/21 at 0100, For 1 dose, Administer over 2 minutes. * 0147 (Given - Provider: Josse Haynes, DARI) ondansetron (ZOFRAN) injection 4 mg (COMPLETED) 4 mg, IntraVENous, ONCE, On Sat01/17/21 at 0100, For 1 dose * 0146 (Given - Provider: Josse Haynes, DARI) ondansetron (ZOFRAN) injection 4 mg (COMPLETED) 4 mg, IntraVENous, ONCE, On Sat01/17/21 at 0430, For 1 dose * 0601 (Given - Provider: La Stevens RN) Medication Order//01/2021 0.9 % sodium chloride bolus (COMPLETED) 500 mL (6.89 mL/kg), IntraVENous, at 500 mL/hr, Administer over 1 Hours, ONCE, On Jenn 02/09/21 at 1130, For 1 dose * 1147 (New Bag - Provider: Lalitha Barrera RN) * 1247 (Stopped - Provider: Shana Blue RN) HYDROcodone-acetaminophen (NORCO) 5-325 MG per tablet 1 tablet (COMPLETED) 1 tablet, Oral, ONCE, On Jenn 02/09/21 at 1145, For 1 dose, Maximum dose of acetaminophen is 4000 mgfrom all sources in 24 hours. * 1145 (Given - Provider: Lalitha Barrera RN) ibuprofen (ADVIL;MOTRIN) tablet 400 mg (COMPLETED) 400 mg, Oral, ONCE, On Jenn 02/09/21 at 1145, For 1 dose, Do not crush or chew. * 1145 (Given - Provider: Lalitha Barrera RN) ondansetron (ZOFRAN) injection 4 mg (COMPLETED) 4 mg, IntraVENous, ONCE, On Jenn 02/09/21 at 1130, For 1 dose * 1146 (Given - Provider: Lalitha Barrera RN) Medication Order//[id number]/ amLODIPine (NORVASC) tablet 5 mg 5 mg, Oral, DAILY, First dose on Sat03/18/21 at 1430 * 1452 (Given - Provider: Fátima Del Castillo, DARI) * 0917 (Given - Provider: Beba Guerrero, DARI) aspirin chewable tablet 81 mg 81 mg, Oral, DAILY, First dose on Sat03/17/21 at 1815 * 1853 (Given - Provider: Eva Wills RN) * 0803 (Given - Provider: Fátima Del Castillo, DARI) * 0917 (Given - Provider: Beba Guerrero, DARI) benzonatate (TESSALON) capsule 200 mg (COMPLETED) 200 mg, Oral, ONCE, On Sat03/17/21 at 2230, For 1 dose * 2252 (Given - Provider: Eva Wills RN) clopidogrel (PLAVIX) tablet 75 mg 75 mg, Oral, DAILY, First dose on Sat03/17/21 at 1815 * 1853 (Given - Provider: Eva Wills RN) * 0804 (Given - Provider: Fátima Del Castillo RN) * 0917 (Given - Provider: Beba Guerrero RN) enoxaparin (LOVENOX) injection 30 mg 30 mg, SubCUTAneous, DAILY, First dose on Sat03/17/21 at 1815 * 1854 (Given - Provider: Eva Wills RN) * 0803 (Given - Provider: Fátima Del Castillo RN) * 0917 (Given - Provider: Beba Guerrero RN) furosemide (LASIX) injection 40 mg 40 mg, IntraVENous, 2 TIMES DAILY, First dose on Sat03/17/21 at 1845 * 1854 (Given - Provider: Eva Wills RN) * 0803 (Given - Provider: Fátima Del Castillo RN) * 1715 (Given - Provider: Angella Chaudhari RN) * 0917 (Given - Provider: Beba Guerrero RN) * 1800 (Due) levothyroxine (SYNTHROID) tablet 150 mcg 150 mcg, Oral, DAILY, First dose on Sat03/17/21 at 1815, Tube feeding (TF) interaction, obtain physician order to manage, recommend holding TF for 30 minutes before and after dose. * 1853 (Given - Provider: Eva Wills RN) * 1419 (Given - Provider: Fátima Del Castillo RN) * 0812 (Given - Provider: Beba Guerrero RN) metoprolol tartrate (LOPRESSOR) tablet 25 mg 25 mg, Oral, 2 TIMES DAILY, First dose on Sat03/17/21 at 2100 * 2109 (Given - Provider: Eva Wills RN) * 0803 (Given - Provider: Fátima Del Castillo RN) * 2103 (Given - Provider: Eva Wills RN) * 0916 (Given - Provider: Beba Guerrero RN) * 2100 (Due) nicotine (NICODERM CQ) 21 MG/24HR 1 patch 1 patch, TransDERmal, Administer over 24 Hours, DAILY, First dose on Sat03/17/21 at 1845, Apply new patch to nonhairy, clean, dry skin on the upper body or upper outer arm. Rotate patch sites. Notify pharmacy if patient or provider prefers patch to be removed at bedtime and replaced in the morning. Hazardous Medication -- Refer to facility policy for handling and disposal. * 1918 (Patch Applied - Provider: Eva Wills RN) * 0804 (Patch Applied - Provider: Fátima Del Castillo, DARI) * 0859 (Due: Patch Removed - Provider: Fátima Del Castillo RN) * 0900 (Due) * 0935 (Patch Applied - Provider: Beba Guerrero RN) ondansetron (ZOFRAN) injection 4 mg (COMPLETED) 4 mg, IntraVENous, ONCE, On Sat03/18/21 at 1900, For 1 dose * 1917 (Given - Provider: Eva Wills RN) pioglitazone (ACTOS) tablet 15 mg 15 mg, Oral, DAILY, First dose on Sat03/17/21 at 1815 * 1854 (Given - Provider: Eva Wills RN) * 1418 (Given - Provider: Fátima Del Castillo RN) * 0943 (Given - Provider: Beba Guerrero RN) piperacillin-tazobactam (ZOSYN) 3,375 mg in dextrose 5 % 50 mL IVPB (mini-bag) (CANCELED) 3,375 mg, IntraVENous, ONCE, 1 dose, On Sat03/17/21 at 1715 * 1830 (New Bag - Provider: Bela Morelos RN) * 1851 (Stopped - Provider: Eva Wills RN) piperacillin-tazobactam (ZOSYN) 3,375 mg in dextrose 5 % 50 mL IVPB extended infusion (mini-bag) 3,375 mg, IntraVENous, EVERY 8 HOURS, First dose on Sat03/18/21 at 0200, Until Discontinued * 0553 (New Bag - Provider: Eva Wills RN) * 0620 (Stopped - Provider: Fátima Del Castillo RN) * 1000 (Due) * 1718 (New Bag - Provider: Angella Chaudhari DARI) * 1800 (Stopped - Provider: Angella Chaudhari, DARI) * 0306 (New Bag - Provider: Eva Wills, DARI) * 0448 (Stopped - Provider: Eva Wills RN) * 0935 (New Bag - Provider: Beba Guerrero, DARI) * 1335 (Stopped - Provider: Beba Guerrero, DARI) * 1800 (Due) sulfamethoxazole-trimethoprim (BACTRIM DS;SEPTRA DS) 800-160 MG per tablet 1 tablet 1 tablet, Oral, EVERY 12 HOURS SCHEDULED (2 times per day), First dose on Sat03/17/21 at 2100 * 2113 (Given - Provider: Eva Wills, DARI) * 0803 (Given - Provider: Fátima Del Castillo, DARI) * 2103 (Given - Provider: Eva Wills, DARI) * 0917 (Given - Provider: Beba Guerrero, DARI) * 2100 (Due) Medication Order//[id number]/ 0.9 % sodium chloride infusion (CANCELED) IntraVENous, at 50 mL/hr, CONTINUOUS, Starting on Sat03/17/21 at 1815 * 1829 (New Bag - Provider: Bela Morelos RN) * 1836 (Due: Rate/Dose Change) * 1851 (Stopped - Provider: Eva Wills RN) Medication Order//[id number]/ benzonatate (TESSALON) capsule 100 mg 100 mg, Oral, 3 TIMES DAILY PRN, Cough, Starting on Sat03/18/21 at 0643 * 0804 (Given - Provider: Fátima Del Castillo, DARI) * 0539 (Given - Provider: Eva Wills, DARI) iopamidol (ISOVUE-370) 76 % injection 75 mL (COMPLETED) 75 mL, IntraVENous, IMG ONCE PRN, Other, Starting on Sat03/17/21 at 1622, For 1 dose * 1622 (Given - Provider: Azeem Murray) ipratropium-albuterol (DUONEB) nebulizer solution 1 ampule 1 ampule, Inhalation, EVERY 4 HOURS PRN, Shortness of Breath, Starting on 12/17/21 at 1850 oxyCODONE-acetaminophen (PERCOCET) 5-325 MG per tablet 1 tablet 1 tablet, Oral, EVERY 6 HOURS PRN, Pain Moderate (4-6), Pain Severe (7-10), Starting on Sat03/17/21 at 1856, Maximum dose of acetaminophen is 4000 mg from all sources in 24 hours. * 1908 (Given - Provider: Eva Wills, RN) * 0315 (Given - Provider: Eva Wills RN) * 0903 (Given - Provider: Angella Chaudhari RN) * 1455 (Given - Provider: Fátima Del Castillo, DARI) * 2103 (Given - Provider: Eva Wills, DARI) * 0305 (Given - Provider: Eva Wills RN) * 0917 (Given - Provider: Beba Guerrero RN) Medication Order// ciprofloxacin (CIPRO) 400 mg in dextrose 5% premix IVPB (COMPLETED) 400 mg, Intravenous, Administer over 60 Minutes, ONCE, 1 dose, On Sat07/19/21 at 1545 * 1506 ($$New Bag$$ - Provider: Marquita Henderson RN) dextrose 50% injection 12.5 g (COMPLETED) 12.5 g, Intravenous, ONCE, 1 dose, On Sat07/19/21 at 1315, Pre-op/Pre-Proc * 1305 (Given - Provider: Enzo Grullon RN) Medication Order// simethicone in sterile water 80 mg/1000 mL irrigation 1 Application 1 Application, Irrigation, ADMINISTER DIRECTED, Starting on Sat07/19/21 at 1442, Until Sat07/20/21 at 0317, Other, For gastrointestinal irrigation in Endoscopy, For gastrointestinal irrigation, Intra-op/Intra-Proc Medication Order// acetaminophen (TYLENOL) tablet 650 mg (COMPLETED) 650 mg, Oral, ONCE, 1 dose, On Sat07/21/22 at 1130, Maximum dose of acetaminophen is 4000 mg from all sources in 24 hours. * 1150 (Given - Provider: Josse Haynes RN) Medication Order// ketorolac (TORADOL) injection 30 mg (COMPLETED) 30 mg, IntraMUSCular, ONCE, 1 dose, On Sat07/29/22 at 1245, Do not administer for more than 5 days. * 1235 (Given - Provider: Ericka Argueta RN) Medication Order amLODIPine (NORVASC) tablet 10 mg 10 mg, Oral, DAILY, First dose on Sat08/07/24 at 0900, Until Discontinued * 0900 (Automatically Held - Provider: HILDA Cortes CNP) * 09 (Automatically Held - Provider: HILDA Cortes CNP) * 09 (Automatically Held - Provider: HILDA Cortes CNP) * 0939 (Unheld by provider - Provider: HILDA Cortes CNP) apixaban (ELIQUIS) tablet 5 mg 5 mg, Oral, DAILY, First dose on Sat08/07/24 at 0900, Until Discontinued, Indication of Use: A Fib/AFlutter, ANTICOAGULANT * 0805 (Given - Provider: Lucille Mistry) * 0907 (Given - Provider: Louise Mccoy, DARI) * 0818 (Given - Provider: Corie Robertson, DARI) aspirin chewable tablet 81 mg 81 mg, Oral, DAILY, First dose on Sat08/07/24 at 0900, Until Discontinued * 0804 (Given - Provider: Lucille Mistry) * 0907 (Given - Provider: Louise Mccoy, DARI) * 0817 (Given - Provider: Corie Robertson, DARI) budesonide-formoterol (SYMBICORT) 160-4.5 MCG/ACT inhaler 2 puff 2 puff, Inhalation, 2 TIMES DAILY RESP, First dose on Sat08/06/24 at 2000, Until Discontinued, [place] out with water (without swallowing) after every dose. * 1037 (Given - Provider: Janay Han RCP) * 2011 (Given - Provider: Janay Han RCP) * 1051 (Given - Provider: Janay Han RCP) * 2047 (Not Given - Provider: Janay Han RCP - Reason: Patient/family refused - Comment: pt refuses; wants to sleep) * 0949 (Given - Provider: Darling Welsh RCP) * 2100 (Due - Provider: Gina Brown RCP) chlorhexidine (PERIDEX) 0.12 % solution 15 mL 15 mL, Mouth/Throat, 2 TIMES DAILY, First dose on Jenn 08/06/24 at 2100, Until Discontinued, Rinse andspit. Do not swallow. * 0805 (Given - Provider: Lucille Mistry) * 2114 (Given - Provider: Jocelyn Yarbrough RN) * 0908 (Given - Provider: Louise Mccoy, RN) * 2112 (Given - Provider: Jean Pierre Robertson, RN) * 0819 (Given - Provider: Corie Robertson, RN) * 2100 (Due) gabapentin (NEURONTIN) capsule 600 mg 600 mg, Oral, 3 TIMES DAILY, First dose (after last modification) on Sat08/07/24 at 1400, Until Discontinued * 0804 (Given - Provider: Lucille Mistry) * 1334 (Given - Provider: Lucille Mistry) * 2114 (Given - Provider: Jocelyn Yarbrough, DARI) * 0907 (Given - Provider: Louise Mccoy, RN) * 1310 (Given - Provider: Louise Mccoy, RN) * 2111 (Given - Provider: Jean Pierre Robertson, RN) * 0818 (Given - Provider: Corie Robertson, RN) * 1302 (Given - Provider: Corie Robertson, RN) * 2100 (Due) ipratropium 0.5 mg-albuterol 2.5 mg (DUONEB) nebulizer solution 1 Dose 1 Dose, Inhalation, 3 TIMES DAILY RESP, First dose (after last modification) on Jenn 08/06/24 at 2000,Until Discontinued, Initiate RT Bronchodilator Protocol: Yes - Inpatient Protocol * 1037 (Given - Provider: Janay Han RCP) * 1608 (Given - Provider: Janay Han RCP) * 2011 (Given - Provider: Janay Han RCP) * 1052 (Given - Provider: Janay Han RCP) * 1609 (Given - Provider: Janay Han RCP) * 2047 (Not Given - Provider: Janay Han RCP - Reason: Patient/family refused - Comment: Pt refuses; wants to sleep) * 0948 (Given - Provider: Darling Welsh RCP) * 1516 (Given - Provider: Darling Welsh RCP) * 2100 (Due - Provider: Gina Brown RCP) isosorbide mononitrate (IMDUR) extended release tablet 30 mg 30 mg, Oral, DAILY, First dose (after last modification) on Sat08/09/24 at 0900, Until Discontinued, Do not crush or chew. * 0907 (Given - Provider: Louise Mccoy RN) * 0818 (Given - Provider: Corie Robertson RN) isosorbide mononitrate (IMDUR) extended release tablet 60 mg (CANCELED) 60 mg, Oral, DAILY, First dose on Sat08/07/24 at 0900, Until Discontinued, Do not crush or chew. * 0804 (Given - Provider: Lucille Mistry) levothyroxine (SYNTHROID) tablet 150 mcg 150 mcg, Oral, DAILY, First dose on Sat08/07/24 at 0700, Until Discontinued, Tube feeding (TF) interaction, obtain physician order to manage, recommend holding TF for 30 minutes before and after dose. * 0718 (Given - Provider: Lucille Mistry) * 0907 (Given - Provider: Louise Mccoy RN) * 0806 (Given - Provider: Corie Robertson RN) losartan (COZAAR) tablet 100 mg 100 mg, Oral, DAILY, First dose on Sat08/07/24 at 0900, Until Discontinued * 0900 (Automatically Held - Provider: HILDA Cortes CNP) * 0900 (Automatically Held - Provider: HILDA Cortes CNP) * 0900 (Automatically Held - Provider: HILDA Cortes CNP) * 0939 (Unheld by provider - Provider: HILDA Cortes CNP) metFORMIN (GLUCOPHAGE) tablet 500 mg 500 mg, Oral, 2 TIMES DAILY WITH MEALS, First dose on Sat08/07/24 at 1700, Until Discontinued * 0805 (Given - Provider: Lucille Mistry) * 1717 (Given - Provider: Lucille Mistry) * 0907 (Given - Provider: Louise Mccoy RN) * 1709 (Not Given - Provider: Louise Mccoy RN - Reason: Patient/family refused) * 0806 (Not Given - Provider: Corie Robertson RN - Reason: Patient/family refused) * 1635 (Not Given - Provider: Corie Robertson RN - Reason: Patient/family refused) methocarbamol (ROBAXIN) tablet 750 mg 750 mg, Oral, 4 TIMES DAILY, First dose on Sat08/06/24 at 1700, Until Discontinued * 0804 (Given - Provider: Lucille Mistry) * 1333 (Given - Provider: Lucille Mistry) * 1717 (Given - Provider: Lucille Mistry) * 2114 (Given - Provider: Jocelyn Yarbrough RN) * 0907 (Given - Provider: Louise Mccoy RN) * 1310 (Given - Provider: Louise Mccoy RN) * 1708 (Given - Provider: Louise Mccoy RN) * 2110 (Given - Provider: Jean Pierre Robertson RN) * 0817 (Given - Provider: Corie Robertson RN) * 1629 (Given - Provider: Corie Robertson RN) * 1636 (Not Given - Provider: Corie Robertson RN - Reason: Patient/family refused) * 2100 (Due) metoprolol succinate (TOPROL XL) extended release tablet 25 mg 25 mg, Oral, DAILY, First dose on Sat08/07/24 at 0900, Until Discontinued, Do not crush or chew. * 0805 (Given - Provider: Lucille Mistry) * 0907 (Given - Provider: Louise Mccoy RN) * 0818 (Given - Provider: Corie Robertson RN) nicotine (NICODERM CQ) 21 MG/24HR 1 patch 1 patch, TransDERmal, Administer over 24 Hours, DAILY, First dose on Sat08/06/24 at 1600, Apply new patch to nonhairy, clean, dry skin on the upper body or upper outer arm. Rotate patch sites. Notify pharmacy if patient or provider prefers patch to be removed at bedtime and replaced in the morning. Hazardous Medication -- Refer to facility policy for handling and disposal. * 1552 (Patch Removed - Provider: Lucille Mistry) * 1718 (Patch Applied - Provider: Lucille Mistry) * 1659 (Patch Removed - Provider: Louise Mccoy RN) * 1711 (Patch Applied - Provider: Louise Mccoy RN) * 1627 (Patch Removed - Provider: Corie Robertson RN) * 1631 (Patch Applied - Provider: Corie Robertson RN) pantoprazole (PROTONIX) tablet 40 mg 40 mg, Oral, DAILY, First dose on Sat08/07/24 at 0900, Until Discontinued, Do not crush or break. * 0805 (Given - Provider: Lucille Mistry) * 0906 (Given - Provider: Louise Mccoy RN) * 0818 (Given - Provider: Corie Robertson RN) piperacillin-tazobactam (ZOSYN) 3,375 mg in sodium chloride 0.9 % 50 mL IVPB ([id number])(Linked Group 1) 3,375 mg, IntraVENous, at 12.5 mL/hr, Administer over 240 Minutes, EVERY 8 HOURS, First dose on Sat08/06/24 at 2200, For 7 days, Use 20mm (Blue) [id number] Adapter Preparation instructions: Attach medication vial to one 20mm (Blue) [id number] adapter. Rai fluid bag with adapter, mix, and administer per order. * 0315 (Stopped - Provider: Ly Constantino RN) * 0515 (New Bag - Provider: Ly Constantino RN) * 0940 (Stopped - Provider: Lucille Mistry) * 1334 (New Bag - Provider: Lucille Misrty) * 1823 (Stopped - Provider: Jocelyn Yarbrough RN) * 2119 (New Bag - Provider: Jocelyn Yarbrough RN) * 0119 (Stopped - Provider: Jocelyn Yarbrough RN) * 0531 (New Bag - Provider: Jocelyn Yarbrough RN) * 0931 (Stopped - Provider: Louise Mccoy RN) * 1340 (New Bag - Provider: Louise Mccoy RN) * 1710 (Stopped - Provider: Louise Mccoy, RN) * 2109 (New Bag - Provider: Jean Pierre Robertson RN) * 0111 (Stopped - Provider: Jean Pierre Robertson RN) * 0521 (New Bag - Provider: Jean Pierre Robertson RN) * 1252 (Stopped - Provider: Corie Robertson RN) * 1629 (New Bag - Provider: Corie Robertson RN) * 1830 (Stopped - Provider: Ly Constantino RN - Comment: ran over 30 mins due to discharge) * 2199 (Due) pravastatin (PRAVACHOL) tablet 40 mg 40 mg, Oral, NIGHTLY, First dose on Jenn 08/06/24 at 2100, Until Discontinued * 2113 (Given - Provider: Jocelyn Yarbrough, RN) * 2109 (Given - Provider: Jean Pierre Robertson RN) * 2099 (Due) sodium chloride flush 0.9 % injection 5-40 mL 5-40 mL, IntraVENous, EVERY 12 HOURS SCHEDULED (2 times per day), First dose on Jenn 08/06/24 at 2100,Until Discontinued, For Line Patency: Peripheral IV = 5 mL; Midline or Central Line = 10 mL/lumen. If following IV push medication, administer flush at same rate as the IV push. Flush volume is determined by type of infusion therapy being given. For non-viscous solutions use: Peripheral IV = 5 mL Midline or Central Line = 10 mL/lumen For viscous solutions (i.e. blood components, parenteral nutrition, contrast media, or after obtaining blood sample) use: Peripheral IV = 10 mL Midline or Central Line = 20 mL/lumen * 08 (Given - Provider: Lucille Mistry) * 2113 (Given - Provider: Jocelyn Yarbrough, DARI) * 09 (Not Given - Provider: Louise Mccoy, RN - Reason: IV Fluid Infusing) * 2112 (Not Given - Provider: Jean Pierre Robertson RN - Reason: IV Fluid Infusing) * 08 (Given - Provider: Corie Robertson RN) * 2099 (Due) vitamin D (ERGOCALCIFEROL) capsule 50,000 Units 50,000 Units, Oral, WEEKLY, First dose on Sat08/07/24 at 0900, Until Discontinued Medication Order//03/2025 0.9 % sodium chloride infusion IntraVENous, at 100 mL/hr, PRN, If patient receiving piggyback infusions without ordered maintenance IV fluids or with frequent/long duration piggyback infusions, Starting on Sat08/06/24 at 1449, Administer at the same rate as the piggyback being infused. acetaminophen (TYLENOL) suppository 650 mg(Linked Group 2) 650 mg, Rectal, EVERY 6 HOURS PRN, Starting on Jenn 08/06/24 at 1449, Until Discontinued, Pain Mild (1-3), allowed for higher pain score per patient request, Fever, For temp greater than 100.4 F (38 C),Administer if oral route cannot be used. acetaminophen (TYLENOL) tablet 650 mg(Linked Group 2) 650 mg, Oral, EVERY 6 HOURS PRN, Starting on Jenn 08/06/24 at 1449, Until Discontinued, Pain Mild (1-3), allowed for higher pain score per patient request, Fever, For temp greater than 100.4 F (38 C), Maximum dose of acetaminophen is 4000 mg from all sources in 24 hours. albuterol (PROVENTIL) (2.5 MG/3ML) 0.083% nebulizer solution 2.5 mg 2.5 mg, Nebulization, EVERY 6 HOURS PRN, Starting on Jenn 08/06/24 at 1447, Until Discontinued, Wheezing, Shortness of Breath, Initiate RT Bronchodilator Protocol: Yes - Inpatient Protocol benzonatate (TESSALON) capsule 200 mg 200 mg, Oral, 3 TIMES DAILY PRN, Starting on Jenn 08/06/24 at 1447, Until Discontinued, Cough, Do not crush or break. docusate sodium (COLACE) capsule 100 mg 100 mg, Oral, 2 TIMES DAILY PRN, Starting on Jenn 08/06/24 at 1448, Until Discontinued, Constipation, Do not crush or break. magic (miracle) mouthwash 15 mL, Swish & Swallow, 4 TIMES DAILY PRN, Starting on Jenn 08/06/24 at 1448, Until Discontinued, Irritation magnesium sulfate 2000 mg in 50 mL IVPB premix 2,000 mg, IntraVENous, at 25 mL/hr, Administer over 2 Hours, PRN, Other, Magnesium Replacement, Starting on Jenn 08/06/24 at 1456, Mag Lab Replacement Action 1.4-1.6 mg/dL 2,000 mg Total Dose Given as 1,000 mg IVPB x 2 doses or 2,000 mg IVPB x 1 dose 1.0-1.3 mg/dL 4,000 mg Total Dose Given as 1,000 mgIVPB x 4 doses or 2,000 mg IVPB x 2 doses Less than 1.0 mg/dL CALL PHYSICIAN and give 4,000 mg Total Dose Given as 1,000 mg IVPB x 4 doses or 2,000 mg IVPB x 2 doses Infuse at 1,000 mg/hr Repeat Mag level 1 hour after final administration Protocol not for use in Patients with CrCl less than 30ml/min ondansetron (ZOFRAN) injection 4 mg(Linked Group 3) 4 mg, IntraVENous, EVERY 6 HOURS PRN, Starting on Jenn 08/06/24 at 1449, Until Discontinued, Nausea, Vomiting, Administer if oral route cannot be used. ondansetron (ZOFRAN-ODT) disintegrating tablet 4 mg(Linked Group 3) 4 mg, Oral, EVERY 8 HOURS PRN, Starting on Jenn 08/06/24 at 1449, Until Discontinued, Nausea, Vomiting oxyCODONE-acetaminophen (PERCOCET) 7.5-325 MG per tablet 1 tablet 1 tablet, Oral, EVERY 4 HOURS PRN, Starting on Jenn 08/06/24 at 2019, Until Discontinued, Pain Severe (7-10), Maximum dose of acetaminophen is 4000 mg from all sources in 24 hours. * 0507 (Given - Provider: Ly Constantino RN) * 1004 (Given - Provider: Lucille Mistry) * 1509 (Given - Provider: Lucille Mistry) * 1919 (Given - Provider: Jocelyn Yarbrough RN) * 2319 (Given - Provider: Jocelyn Yarbrough RN) * 0438 (Given - Provider: Jocelyn Yarbrough RN) * 0907 (Given - Provider: Louise Mccoy RN) * 1310 (Given - Provider: Louise Mccoy, DARI) * 1911 (Given - Provider: Jean Pierre Robertson RN) * 2318 (Given - Provider: Jean Pierre Robertson RN) * 0324 (Given - Provider: Jean Pierre Robertson RN) * 0806 (Given - Provider: Corie Robertson, DARI) * 1302 (Given - Provider: Corie Robertson, DARI) * 1710 (Given - Provider: Corie Robertson, RN) polyethylene glycol (GLYCOLAX) packet 17 g 17 g, Oral, DAILY PRN, Starting on Jenn 08/06/24 at 1449, Until Discontinued, Constipation, First linetherapy for constipation potassium bicarb-citric acid (EFFER-K) effervescent tablet 40 mEq(Linked Group 4) 40 mEq, Oral, PRN, Starting on Jenn 08/06/24 at 1449, Until Discontinued, Per Potassium Replacement Protocol, Administer as alternative if patient unable to tolerate oral tablet. K Lab Replacement Action 3.1 to 3.5 40 mEq ORAL x 1 Under 3.1 Refer to IV replacement protocol Recheck K level in AM. Protocol not for use in patients with CrCl less than 30 mL/min. Do not chew or crush. Dissolve flavored tablets completely in 3 to 4 ounces of cold water; unflavored tablets may be dissolved in 3 to 4 ounces of cold juice. Patient to sip slowly over a 5 to 10 minute period. May further dilute if GI adverse effects occur. potassium chloride (KLOR-CON M) extended release tablet 40 mEq(Linked Group 4) 40 mEq, Oral, PRN, Starting on Jenn 08/06/24 at 1449, Until Discontinued, Potassium Replacement, May give alternative linked oral order (ordered as effervescent, packet, or liquid solution) if patient unable to tolerate tablet. K Lab Replacement Action 3.1 to 3.5 40 mEq ORAL x 1 Under 3.1 Refer to IV replacement protocol Recheck K level in AM. Protocol not for use in patients with CrCl less than 30 mL/min. Do not crush, chew, or suck on tablet. Tablet may also be broken in half and each half swallowed separately. potassium chloride 10 mEq/100 mL IVPB (Peripheral Line)(Linked Group 4) 10 mEq, IntraVENous, PRN, Starting on Jenn 08/06/24 at 1449, Until Discontinued, at 100 mL/hr, Potassium Replacement, K Lab Replacement Action 2.7 to 3.0 10 mEq IVPB x 6 doses (60 mEq Total) Under 2.7 CALL PROVIDER and administer 10 mEq IVPB x 6 doses (60 mEq Total) Infuse at 10 mEq/hr. Repeat Potassium lab 1 hour after final administration. Protocol not for use in patients with CrCl less than 30 mL/min. sodium chloride flush 0.9 % injection 5-40 mL 5-40 mL, IntraVENous, PRN, Starting on Jenn 08/06/24 at 1449, Until Discontinued, Line Care, After every IV line use, For Line Patency: Peripheral IV = 5 mL; Midline or Central Line = 10 mL/lumen. If following IV push medication, administer flush at same rate as the IV push. Flush volume is determinedby type of infusion therapy being given. For non-viscous solutions use: Peripheral IV = 5 mL Midline or Central Line = 10 mL/lumen For viscous solutions (i.e. blood components, parenteral nutrition, contrast media, or after obtaining blood sample) use: Peripheral IV = 10 mL Midline or Central Line = 20 mL/lumen * 1503 (Given - Provider: Demetria Stout RN) zolpidem (AMBIEN) tablet 10 mg 10 mg, Oral, NIGHTLY PRN, Starting on Jenn 08/06/24 at 1449, Until Discontinued, Sleep Order Group 1: piperacillin-tazobactam (ZOSYN) 4,500 mg in sodium chloride 0.9 % 100 mL IVPB ([id number]) (COMPLETED) 4,500 mg, IntraVENous, at 200 mL/hr, Administer over 30 Minutes, ONCE, On Jenn 08/06/24 at 1530, For 1dose, Use 20mm (Blue) [id number] Adapter Preparation instructions: Attach medication vial to one 20mm(Blue) [id number] adapter. Rai fluid bag with adapter, mix, and administer per order. Followed by piperacillin-tazobactam (ZOSYN) 3,375 mg in sodium chloride 0.9 % 50 mL IVPB ([id number])Jump to med 3,375 mg, IntraVENous, at 12.5 mL/hr, Administer over 240 Minutes, EVERY 8 HOURS, First dose on Thu08/06/24 at 2200, For 7 days, Use 20mm (Blue) [id number] Adapter Preparation instructions: Attach medication vial to one 20mm (Blue) [id number] adapter. Rai fluid bag with adapter, mix, and administer per order. Group 2: acetaminophen (TYLENOL) tablet 650 mgJump to med 650 mg, Oral, EVERY 6 HOURS PRN, Starting on Jenn 08/06/24 at 1449, Until Discontinued, Pain Mild (1-3), allowed for higher pain score per patient request, Fever, For temp greater than 100.4 F (38 C), Maximum dose of acetaminophen is 4000 mg from all sources in 24 hours. Or acetaminophen (TYLENOL) suppository 650 mgJump to med 650 mg, Rectal, EVERY 6 HOURS PRN, Starting on Jenn 08/06/24 at 1449, Until Discontinued, Pain Mild (1-3), allowed for higher pain score per patient request, Fever, For temp greater than 100.4 F (38 C),Administer if oral route cannot be used. Group 3: ondansetron (ZOFRAN-ODT) disintegrating tablet 4 mgJump to med 4 mg, Oral, EVERY 8 HOURS PRN, Starting on Jenn 08/06/24 at 1449, Until Discontinued, Nausea, Vomiting Or ondansetron (ZOFRAN) injection 4 mgJump to med 4 mg, IntraVENous, EVERY 6 HOURS PRN, Starting on Jenn 08/06/24 at 1449, Until Discontinued, Nausea, Vomiting, Administer if oral route cannot be used. Group 4: potassium chloride (KLOR-CON M) extended release tablet 40 mEqJump to med 40 mEq, Oral, PRN, Starting on Jenn 08/06/24 at 1449, Until Discontinued, Potassium Replacement, May give alternative linked oral order (ordered as effervescent, packet, or liquid solution) if patient unable to tolerate tablet. K Lab Replacement Action 3.1 to 3.5 40 mEq ORAL x 1 Under 3.1 Refer to IV replacement protocol Recheck K level in AM. Protocol not for use in patients with CrCl less than 30 mL/min. Do not crush, chew, or suck on tablet. Tablet may also be broken in half and each half swallowed separately. Or potassium bicarb-citric acid (EFFER-K) effervescent tablet 40 mEqJump to med 40 mEq, Oral, PRN, Starting on Jenn 08/06/24 at 1449, Until Discontinued, Per Potassium Replacement Protocol, Administer as alternative if patient unable to tolerate oral tablet. K Lab Replacement Action 3.1 to 3.5 40 mEq ORAL x 1 Under 3.1 Refer to IV replacement protocol Recheck K level in AM. Protocol not for use in patients with CrCl less than 30 mL/min. Do not chew or crush. Dissolve flavored tablets completely in 3 to 4 ounces of cold water; unflavored tablets may be dissolved in 3 to 4 ounces of cold juice. Patient to sip slowly over a 5 to 10 minute period. May further dilute if GI adverse effects occur. Or potassium chloride 10 mEq/100 mL IVPB (Peripheral Line)Jump to med 10 mEq, IntraVENous, PRN, Starting on Jenn 08/06/24 at 1449, Until Discontinued, at 100 mL/hr, Potassium Replacement, K Lab Replacement Action 2.7 to 3.0 10 mEq IVPB x 6 doses (60 mEq Total) Under 2.7 CALL PROVIDER and administer 10 mEq IVPB x 6 doses (60 mEq Total) Infuse at 10 mEq/hr. Repeat Potassium lab 1 hour after final administration. Protocol not for use in patients with CrCl less than 30 mL/min. Medication Order// albuterol sulfate HFA (PROVENTIL;VENTOLIN;PROAIR) 108 (90 Base) MCG/ACT inhaler 2 puff 2 puff, Inhalation, 3 TIMES DAILY RESP, First dose (after last modification) on Sat08/12/24 at 1630, Until Discontinued, Initiate RT Bronchodilator Protocol: Yes - Inpatient Protocol * 0856 (Given - Provider: Enzo Del Toro RCP) * 153 (Given - Provider: Enzo Del Toro RCP) * 2025 (Given - Provider: Jania Duran RCP) * 0747 (Given - Provider: Yvette Mansfield RCP) * 152 (Given - Provider: Yvette Mansfield RCP) * 2019 (Given - Provider: Bonnie Gallardo RCP) * 0726 (Given - Provider: Janay Han RCP) * 1400 (Due) * 1999 (Due) amLODIPine (NORVASC) tablet 10 mg 10 mg, Oral, DAILY, First dose on Sat08/13/24 at 0900, Until Discontinued * 0807 (Given - Provider: Cyndee Claudio RN) * 0843 (Given - Provider: Cyndee Claudio RN) * 0837 (Given - Provider: Erin Stevens RN) amoxicillin-clavulanate (AUGMENTIN) 875-125 MG per tablet 1 tablet 1 tablet, Oral, 2 TIMES DAILY, 28 doses, First dose on Sat08/12/24 at 2100, Last dose on Sat08/26/24 at 0900, Antimicrobial Indications: Skin and Soft Tissue Infection, Skin duration of therapy: Other, Other Skin and Soft Tissue Infection Duration: 14 * 0808 (Given - Provider: Cyndee Claudio RN) * 2020 (Given - Provider: Yanira Aguirre RN) * 0843 (Given - Provider: Cyndee Claudio RN) * 1958 (Given - Provider: Yanira Aguirre RN) * 0837 (Given - Provider: Erin Stevens, DARI) * 2099 (Due) apixaban (ELIQUIS) tablet 5 mg 5 mg, Oral, DAILY, First dose on Sat08/13/24 at 2200, Until Discontinued, Indication of Use: A Fib/A Flutter, ANTICOAGULANT * 2020 (Given - Provider: Yanira Aguirre RN) * 2005 (Given - Provider: Yanira Aguirre RN) * 2199 (Due) aspirin chewable tablet 81 mg 81 mg, Oral, DAILY, First dose on Sat08/13/24 at 0900, Until Discontinued * 0808 (Given - Provider: Cyndee Claudio RN) * 0842 (Given - Provider: Cyndee Claudio RN) * 0837 (Given - Provider: Erin Stevens RN) benzonatate (TESSALON) capsule 200 mg 200 mg, Oral, 3 TIMES DAILY, First dose on Sat08/13/24 at 0900, Until Discontinued * 0807 (Given - Provider: Cyndee Claudio RN) * 1237 (Given - Provider: Cyndee Claudio RN) * 2020 (Given - Provider: Yanira Aguirre RN) * 0843 (Given - Provider: Cyndee Claudio RN) * 1401 (Given - Provider: Cyndee Claudio RN) * 1958 (Given - Provider: Yanira Aguirre RN) * 0837 (Given - Provider: Erin Stevens RN) * 1400 (Due) * 2100 (Due) budesonide-formoterol (SYMBICORT) 160-4.5 MCG/ACT inhaler 2 puff 2 puff, Inhalation, 2 TIMES DAILY, First dose on Sat08/12/24 at 2100, Until Discontinued, Rinse mouth out with water (without swallowing) after every dose. * 0857 (Given - Provider: Enzo Del Toro RCP) * 2026 (Given - Provider: Jania Duran RCP) * 0747 (Given - Provider: Yvette Mansfield RCP) * 2019 (Given - Provider: Bonnie Gallardo RCP) * 0726 (Given - Provider: Janay Han RCP) * 2100 (Due) chlorhexidine (PERIDEX) 0.12 % solution 15 mL 15 mL, Mouth/Throat, 2 TIMES DAILY, First dose on Sat08/12/24 at 2100, Until Discontinued, Rinse and spit. Do not swallow. * 0813 (Given - Provider: Cyndee Claudio RN) * 2021 (Given - Provider: Yanira Aguirre RN) * 0846 (Given - Provider: Cyndee Claudio RN) * 1958 (Given - Provider: Yanira Aguirre RN) * 0837 (Given - Provider: Erin Stevens RN) * 2100 (Due) empagliflozin (JARDIANCE) tablet 10 mg 10 mg, Oral, DAILY, First dose on Sat08/15/24 at 0900, Until Discontinued, Indication of Use: Type 2 diabetes, Heart Failure (preserved EF), Substituted for dapagliflozin (FARXIGA). Note: Discontinuation of therapy 3 days prior to surgery or major procedures is recommended given the risk for euglycemic diabetic ketoacidosis. * 0808 (Given - Provider: Cyndee Claudio RN) * 0842 (Given - Provider: Cyndee Claudio RN) * 0837 (Given - Provider: Erin Stevens, DARI) ferrous sulfate (IRON 325) tablet 325 mg 325 mg, Oral, DAILY WITH BREAKFAST, First dose on Sat08/16/24 at 1200, Until Discontinued, Separateiron & levothyroxine by 4 hours * 1401 (Given - Provider: Cyndee Claudio RN) * 0837 (Given - Provider: Erin Stevens, DARI) gabapentin (NEURONTIN) capsule 600 mg 600 mg, Oral, 3 TIMES DAILY, First dose (after last modification) on Jenn 08/13/24 at 1400, Until Discontinued * 0807 (Given - Provider: Cyndee Claudio RN) * 1238 (Given - Provider: Cyndee Claudio RN) * 2020 (Given - Provider: Yanira Aguirre, DARI) * 0842 (Given - Provider: Cyndee Claudio RN) * 1401 (Given - Provider: Cyndee Claudio RN) * 1958 (Given - Provider: Yanira Aguirre RN) * 0837 (Given - Provider: Erin Stevens, DARI) * 1400 (Due) * 2100 (Due) iron sucrose (VENOFER) 200 mg in sodium chloride 0.9 % 100 mL IVPB 200 mg, IntraVENous, at 440 mL/hr, Administer over 15 Minutes, EVERY 24 HOURS, First dose on Sat08/15/24 at 1600, For 3 days, Observe for signs and symptoms of hypersensitivity and/or anaphylactic-type reactions per institutional standard during and for at least 30 minutes following the end of administration and until clinically stable. * 1707 (New Bag - Provider: Cyndee Claudio RN) * 1748 (Stopped - Provider: Cyndee Claudio RN) * 1420 (Not Given - Provider: Cyndee Claudio RN - Reason: Patient/family refused - Comment: Did not want a new IV inserted for this.) * 1600 (Due) isosorbide mononitrate (IMDUR) extended release tablet 60 mg 60 mg, Oral, DAILY, First dose on Sat08/12/24 at 1545, Until Discontinued, Do not crush or chew. * 0808 (Given - Provider: Cyndee Claudio RN) * 0843 (Given - Provider: Cyndee Claudio RN) * 0837 (Given - Provider: Erin Stevens, DARI) levothyroxine (SYNTHROID) tablet 150 mcg 150 mcg, Oral, EVERY MORNING, First dose on Sat08/13/24 at 0900, Until Discontinued, Tube feeding (TF) interaction, obtain physician order to manage, recommend holding TF for 30 minutes before and after dose. * 0808 (Given - Provider: Cyndee Claudio RN) * 0843 (Given - Provider: Cyndee Claudio RN) * 0702 (Given - Provider: Erin Stevens, DARI) losartan (COZAAR) tablet 100 mg 100 mg, Oral, DAILY, First dose on Sat08/13/24 at 0900, Until Discontinued * 0807 (Given - Provider: Cyndee Claudio RN) * 0842 (Given - Provider: Cyndee Claudio, DARI) * 0836 (Given - Provider: Erin Stevens, DARI) methocarbamol (ROBAXIN) tablet 750 mg 750 mg, Oral, 4 TIMES DAILY, First dose on Sat08/12/24 at 1700, Until Discontinued * 0808 (Given - Provider: Cyndee Claudio RN) * 1237 (Given - Provider: Cyndee Claudio RN) * 1656 (Given - Provider: Cyndee Claudio, DARI) * 1922 (Given - Provider: Yanira Aguirre, RN) * 0842 (Given - Provider: Cyndee Claudio RN) * 1401 (Given - Provider: Cyndee Claudio RN) * 1640 (Given - Provider: Cyndee Claudio RN) * 1959 (Given - Provider: Yanira Aguirre, DARI) * 0836 (Given - Provider: Erin Stevens RN) * 1300 (Due) * 1700 (Due) * 2100 (Due) metoprolol succinate (TOPROL XL) extended release tablet 25 mg 25 mg, Oral, DAILY, First dose on Sat08/13/24 at 0900, Until Discontinued, Do not crush or chew. * 0808 (Given - Provider: Cyndee Claudio RN) * 0843 (Given - Provider: Cyndee Claudio RN) * 0836 (Given - Provider: Erin Stevens, DARI) multivitamin 1 tablet 1 tablet, Oral, DAILY, First dose on Sat08/15/24 at 0900, Until Discontinued * 0808 (Given - Provider: Cyndee Claudio RN) * 0843 (Given - Provider: Cyndee Claudio, DARI) * 0836 (Given - Provider: Erin Stevens, DARI) nicotine (NICODERM CQ) 21 MG/24HR 1 patch 1 patch, TransDERmal, Administer over 24 Hours, DAILY, First dose on Sat08/12/24 at 1430, Apply newpatch to nonhairy, clean, dry skin on the upper body or upper outer arm. Rotate patch sites. Notifypharmacy if patient or provider prefers patch to be removed at bedtime and replaced in the morning.Hazardous Medication -- Refer to facility policy for handling and disposal. * 0800 (Patch Removed - Provider: Cyndee Claudio RN) * 0801 (Patch Applied - Provider: Cyndee Claudio RN) * 0846 (Patch Removed - Provider: Cyndee Claudio RN) * 0847 (Patch Applied - Provider: Cyndee Claudio RN) * 0835 (Patch Removed - Provider: Erin Stevens RN) * 0837 (Patch Applied - Provider: Erin Stevens RN) pantoprazole (PROTONIX) tablet 40 mg 40 mg, Oral, DAILY, First dose on Sat08/12/24 at 1545, Until Discontinued, Do not crush or break. * 0807 (Given - Provider: Cyndee Claudio RN) * 0843 (Given - Provider: Cyndee Claudio RN) * 0837 (Given - Provider: Erin Stevens, DARI) pioglitazone (ACTOS) tablet 45 mg 45 mg, Oral, DAILY, First dose on Sat08/13/24 at 0900, Until Discontinued * 0807 (Given - Provider: Cyndee Claudio RN) * 0842 (Given - Provider: Cyndee Claudio RN) * 0836 (Given - Provider: Erin Stevens RN) povidone-iodine (BETADINE) 10 % external solution Topical, DAILY, First dose on Sat08/13/24 at 2200, To wounds of feet and toes * 2109 (Given - Provider: Yanira Aguirre RN - Comment: right) * 2000 (Given - Provider: Yanira Aguirre, DARI) * 2199 (Due) pravastatin (PRAVACHOL) tablet 40 mg 40 mg, Oral, DAILY, First dose on Sat08/12/24 at 1545, Until Discontinued * 0807 (Given - Provider: Cyndee Claudio RN) * 0843 (Given - Provider: Cyndee Claudio, DARI) * 0836 (Given - Provider: Erin Stevens RN) sodium chloride flush 0.9 % injection 10 mL 10 mL, IntraVENous, EVERY 12 HOURS SCHEDULED (2 times per day), First dose on Sat08/12/24 at 2100, Until Discontinued * 0952 (Not Given - Provider: Cyndee Claudio RN - Reason: Other) * 192 (Given - Provider: Yanira Aguirre RN) * 0850 (Not Given - Provider: Cyndee Claudio RN - Reason: Other) * 2000 (Given - Provider: Yanira Aguirre, DARI) * 0837 (Given - Provider: Erin Stevens, DARI) * 2100 (Due) tiotropium (SPIRIVA RESPIMAT) 2.5 MCG/ACT inhaler 2 puff 2 puff, Inhalation, DAILY RESP, First dose on Sat08/12/24 at 1915, Until Discontinued * 0857 (Given - Provider: Enzo Del Toro RCP) * 0747 (Given - Provider: Yvette Mansfield RCP) * 0727 (Given - Provider: Janay Han RCP) vitamin D (ERGOCALCIFEROL) capsule 50,000 Units 50,000 Units, Oral, WEEKLY, First dose on Sat08/16/24 at 1700, Until Discontinued * 1640 (Given - Provider: Cyndee Claudio RN) Medication Order// 0.9 % sodium chloride infusion IntraVENous, at 5-250 mL/hr, PRN, if patient receiving piggyback infusions and maintenance fluids are not ordered OR KVO fluids to protect IV site / prevent frequent line interruptions/ long duration, Starting on Sat08/12/24 at 1527, For piggyback infusion, administer at same rate as piggyback for a total of 25 mL. Enter 25 mL into dose field and piggyback rate into rate field of order. If piggyback is infusing at a rate less than 100 mL/hr, enter 25 mL into dose field and 100 mL/hr into rate field of order. For KVO fluids, enter rate of 20 mL/hr or less into rate field of order. acetaminophen (TYLENOL) suppository 650 mg(Linked Group 1) 650 mg, Rectal, EVERY 6 HOURS PRN, Starting on Sat08/12/24 at 1527, Until Discontinued, Pain Mild (1-3), allowed for higher pain score per patient request, Fever, For temp greater than 100.4 F (38 C), Administer if oral route cannot be used. acetaminophen (TYLENOL) tablet 650 mg(Linked Group 1) 650 mg, Oral, EVERY 6 HOURS PRN, Starting on Sat08/12/24 at 1527, Until Discontinued, Pain Mild (1-3), allowed for higher pain score per patient request, Fever, For temp greater than 100.4 F (38 C), Maximum dose of acetaminophen is 4000 mg from all sources in 24 hours. albuterol (PROVENTIL) (2.5 MG/3ML) 0.083% nebulizer solution 2.5 mg 2.5 mg, Nebulization, EVERY 6 HOURS PRN, Starting on Sat08/12/24 at 1527, Until Discontinued, Wheezing, Shortness of Breath, Initiate RT Bronchodilator Protocol: Yes - Inpatient Protocol benzonatate (TESSALON) capsule 200 mg 200 mg, Oral, 3 TIMES DAILY PRN, Starting on Sat08/12/24 at 1527, Until Discontinued, Cough, Do notcrush or break. docusate sodium (COLACE) capsule 100 mg 100 mg, Oral, 2 TIMES DAILY PRN, Starting on Sat08/12/24 at 1527, Until Discontinued, Constipation,Do not crush or break. magic mouthwash 15 mL 15 mL, Oral, 4 TIMES DAILY PRN, Starting on Sat08/12/24 at 1527, Until Discontinued, Irritation magnesium sulfate 2000 mg in 50 mL IVPB premix 2,000 mg, IntraVENous, at 25 mL/hr, Administer over 2 Hours, PRN, Other, Magnesium Replacement, Starting on Sat08/12/24 at 1527, Mag Lab Replacement Action 1.4-1.6 mg/dL 2,000 mg Total Dose Given as 1,000 mg IVPB x 2 doses or 2,000 mg IVPB x 1 dose 1.0-1.3 mg/dL 4,000 mg Total Dose Given as 1,000 mg IVPB x 4 doses or 2,000 mg IVPB x 2 doses Less than 1.0 mg/dL CALL PHYSICIAN and give 4,000 mg Total Dose Given as 1,000 mg IVPB x 4 doses or 2,000 mg IVPB x 2 doses Infuse at 1,000 mg/hr Repeat Maglevel 1 hour after final administration Protocol not for use in Patients with CrCl less than 30ml/min nitroGLYCERIN (NITROSTAT) SL tablet 0.4 mg 0.4 mg, SubLINGual, EVERY 5 MIN PRN, Starting on Sat08/12/24 at 1527, Until Discontinued, Chest pain, Place 1 tablet under tongue upon chest pain, wait 5 minutes and may repeat up to 3 doses in 15 minutes. Do not crush or break. ondansetron (ZOFRAN) injection 4 mg(Linked Group 2) 4 mg, IntraVENous, EVERY 6 HOURS PRN, Starting on Sat08/12/24 at 1527, Until Discontinued, Nausea, Vomiting, Administer if oral route cannot be used. ondansetron (ZOFRAN-ODT) disintegrating tablet 4 mg(Linked Group 2) 4 mg, Oral, EVERY 8 HOURS PRN, Starting on Sat08/12/24 at 1527, Until Discontinued, Nausea, Vomiting oxyCODONE-acetaminophen (PERCOCET) 10-325 MG per tablet 1 tablet (CANCELED) 1 tablet, Oral, EVERY 4 HOURS PRN, Starting on 08/15/24 at 0633, Until Sat08/17/24 at 0755, PainMild (1-3), allowed for higher pain score per patient request, Pain Moderate (4-6), allowed for higher pain score per patient request, Pain Severe (7-10), Maximum dose of acetaminophen is 4000 mg from all sources in 24 hours. * 0807 (Given - Provider: Cyndee Claudio RN) * 1237 (Given - Provider: Cyndee Claudio RN) * 1657 (Given - Provider: Cyndee Claudio RN) * 2106 (Given - Provider: Yanira Aguirre RN) * 0355 (Given - Provider: Yanira Aguirre RN) * 0843 (Given - Provider: Cyndee Claudio RN) * 1401 (Given - Provider: Cyndee Claudio RN) * 1959 (Given - Provider: Yanira Aguirre RN) * 0138 (Given - Provider: Yanira Aguirre RN) * 0557 (Given - Provider: Yanira Aguirre RN) oxyCODONE-acetaminophen (PERCOCET) 10-325 MG per tablet 1 tablet 1 tablet, Oral, EVERY 4 HOURS PRN, Starting on Sat08/17/24 at 0753, Until Discontinued, Pain Moderate (4-6), allowed for higher pain score per patient request, Pain Severe (7-10), Maximum dose of acetaminophen is 4000 mg from all sources in 24 hours. * 0959 (Given - Provider: Erin Stevens RN) oxyCODONE-acetaminophen (PERCOCET) 7.5-325 MG per tablet 1 tablet (CANCELED) 1 tablet, Oral, EVERY 4 HOURS PRN, Starting on Sat08/12/24 at 1555, Until 08/15/24 at 0633, PainSevere (7-10), Maximum dose of acetaminophen is 4000 mg from all sources in 24 hours. * 0310 (Given - Provider: Joana Elise RN) polyethylene glycol (GLYCOLAX) packet 17 g 17 g, Oral, DAILY PRN, Starting on Sat08/12/24 at 1527, Until Discontinued, Constipation, First line therapy for constipation potassium bicarb-citric acid (EFFER-K) effervescent tablet 40 mEq(Linked Group 3) 40 mEq, Oral, PRN, Starting on Sat08/12/24 at 1527, Until Discontinued, Per Potassium Replacement Protocol, Administer as alternative if patient unable to tolerate oral tablet. K Lab Replacement Action 3.1 to 3.5 40 mEq ORAL x 1 Under 3.1 Refer to IV replacement protocol Recheck K level in AM. Protocol not for use in patients with CrCl less than 30 mL/min. Do not chew or crush. Dissolve flavored tablets completely in 3 to 4 ounces of cold water; unflavored tablets may be dissolved in 3 to 4 ounces of cold juice. Patient to sip slowly over a 5 to 10 minute period. May further dilute if GI adverse effects occur. potassium chloride (KLOR-CON M) extended release tablet 40 mEq(Linked Group 3) 40 mEq, Oral, PRN, Starting on Sat08/12/24 at 1527, Until Discontinued, Potassium Replacement, May give alternative linked oral order (ordered as effervescent, packet, or liquid solution) if patient unable to tolerate tablet. K Lab Replacement Action 3.1 to 3.5 40 mEq ORAL x 1 Under 3.1 Refer to IV replacement protocol Recheck K level in AM. Protocol not for use in patients with CrCl less than 30mL/min. Do not crush, chew, or suck on tablet. Tablet may also be broken in half and each half swallowed separately. potassium chloride 10 mEq/100 mL IVPB (Peripheral Line)(Linked Group 3) 10 mEq, IntraVENous, PRN, Starting on Sat08/12/24 at 1527, Until Discontinued, at 100 mL/hr, Potassium Replacement, K Lab Replacement Action 2.7 to 3.0 10 mEq IVPB x 6 doses (60 mEq Total) Under 2.7 CALL PROVIDER and administer 10 mEq IVPB x 6 doses (60 mEq Total) Infuse at 10 mEq/hr. Repeat Potassium lab 1 hour after final administration. Protocol not for use in patients with CrCl less than 30 mL/min. sodium chloride flush 0.9 % injection 10 mL 10 mL, IntraVENous, PRN, Starting on Sat08/12/24 at 1527, Until Discontinued, Line Care, After every IV line use zolpidem (AMBIEN) tablet 10 mg 10 mg, Oral, NIGHTLY PRN, Starting on Sat08/12/24 at 1527, Until Discontinued, Sleep * 2105 (Given - Provider: Yanira Aguirre, RN) * 1958 (Given - Provider: Yanira Aguirre, DARI) Order Group 1: acetaminophen (TYLENOL) tablet 650 mgJump to med 650 mg, Oral, EVERY 6 HOURS PRN, Starting on Sat08/12/24 at 1527, Until Discontinued, Pain Mild (1-3), allowed for higher pain score per patient request, Fever, For temp greater than 100.4 F (38 C), Maximum dose of acetaminophen is 4000 mg from all sources in 24 hours. Or acetaminophen (TYLENOL) suppository 650 mgJump to med 650 mg, Rectal, EVERY 6 HOURS PRN, Starting on Sat08/12/24 at 1527, Until Discontinued, Pain Mild (1-3), allowed for higher pain score per patient request, Fever, For temp greater than 100.4 F (38 C), Administer if oral route cannot be used. Group 2: ondansetron (ZOFRAN-ODT) disintegrating tablet 4 mgJump to med 4 mg, Oral, EVERY 8 HOURS PRN, Starting on Sat08/12/24 at 1527, Until Discontinued, Nausea, Vomiting Or ondansetron (ZOFRAN) injection 4 mgJump to med 4 mg, IntraVENous, EVERY 6 HOURS PRN, Starting on Sat08/12/24 at 1527, Until Discontinued, Nausea, Vomiting, Administer if oral route cannot be used. Group 3: potassium chloride (KLOR-CON M) extended release tablet 40 mEqJump to med 40 mEq, Oral, PRN, Starting on Sat08/12/24 at 1527, Until Discontinued, Potassium Replacement, May give alternative linked oral order (ordered as effervescent, packet, or liquid solution) if patient unable to tolerate tablet. K Lab Replacement Action 3.1 to 3.5 40 mEq ORAL x 1 Under 3.1 Refer to IV replacement protocol Recheck K level in AM. Protocol not for use in patients with CrCl less than 30mL/min. Do not crush, chew, or suck on tablet. Tablet may also be broken in half and each half swallowed separately. Or potassium bicarb-citric acid (EFFER-K) effervescent tablet 40 mEqJump to med 40 mEq, Oral, PRN, Starting on Sat08/12/24 at 1527, Until Discontinued, Per Potassium Replacement Protocol, Administer as alternative if patient unable to tolerate oral tablet. K Lab Replacement Action 3.1 to 3.5 40 mEq ORAL x 1 Under 3.1 Refer to IV replacement protocol Recheck K level in AM. Protocol not for use in patients with CrCl less than 30 mL/min. Do not chew or crush. Dissolve flavored tablets completely in 3 to 4 ounces of cold water; unflavored tablets may be dissolved in 3 to 4 ounces of cold juice. Patient to sip slowly over a 5 to 10 minute period. May further dilute if GI adverse effects occur. Or potassium chloride 10 mEq/100 mL IVPB (Peripheral Line)Jump to med 10 mEq, IntraVENous, PRN, Starting on Sat08/12/24 at 1527, Until Discontinued, at 100 mL/hr, Potassium Replacement, K Lab Replacement Action 2.7 to 3.0 10 mEq IVPB x 6 doses (60 mEq Total) Under 2.7 CALL PROVIDER and administer 10 mEq IVPB x 6 doses (60 mEq Total) Infuse at 10 mEq/hr. Repeat Potassium lab 1 hour after final administration. Protocol not for use in patients with CrCl less than 30 mL/min. Medication Order/// dexAMETHasone (DECADRON) IntraVENous 6 mg (COMPLETED) 6 mg, IntraVENous, ONCE, On Jenn 11/19/24 at 1400, For 1 dose * 1414 (Given - Provider: Imani Bocanegra RN) morphine sulfate (PF) injection 4 mg (COMPLETED) 4 mg, IntraVENous, ONCE, 1 dose, On Jenn 11/19/24 at 1315, If oral and IV narcotics ordered, use oralfirst and only use IV if oral is ineffective or cannot take oral. Do Not give oral and IV within 1 hour of each other unless specifically ordered. * 1318 (Given - Provider: Naveed Wan, RN) ondansetron (ZOFRAN) injection 4 mg (COMPLETED) 4 mg, IntraVENous, ONCE, 1 dose, On Jenn 11/19/24 at 1315 * 1318 (Given - Provider: Naveed Wan, RN) orphenadrine (NORFLEX) injection 30 mg (COMPLETED) 30 mg, IntraVENous, ONCE, 1 dose, On Jenn 11/19/24 at 1400 * 1414 (Given - Provider: Imani Bocanegra, RN) Medication Order// 0.9 % sodium chloride infusion IntraVENous, at 100 mL/hr, CONTINUOUS, Starting on Jenn 11/19/24 at 1230 * 1302 (New Bag - Provider: Naveed Wan RN) * 1700 (Stopped - Provider: Imani Bocanegra, RN) Medication Order// dexAMETHasone (DECADRON) 10 MG/ML injection 1 dose, Starting on Sat11/19/24 at 1413, Until Sat11/20/24 at 0214, Imani Ames: cabinet override * 1415 (Due) morphine 4 MG/ML injection 1 dose, Starting on Jenn 11/19/24 at 1317, Until Sat11/20/24 at 0129, Naveed Wan: cabinet override * 1330 (Due) ondansetron (ZOFRAN) 4 MG/2ML injection 1 dose, Starting on Jenn 11/19/24 at 1316, Until Sat11/20/24 at 0129, Naveed Wan: cabinet override * 1330 (Due) orphenadrine (NORFLEX) 30 MG/ML injection 1 dose, Starting on Jenn 11/19/24 at 1413, Until Sat11/20/24 at 0214, Imani Ames: cabinet override * 1415 (Due) Medication Order/ amLODIPine (NORVASC) tablet 10 mg 10 mg, oral, Daily, First dose on Sat12/31/24 at 0900, Look-alike/sound-alike medication - verify indication for use. Avoid grapefruit juice., Indications: hypertension * 0849 (Given - Provider: Tai Banks RN) * 0803 (Given - Provider: Mike Pandya) apixaban (ELIQUIS) tablet 5 mg 5 mg, oral, 2 times daily, First dose on Sat12/30/24 at 2215, Indication: Nonvalvular Atrial Fibrillation (NVAF) * 2316 (Given - Provider: Anushka Zimmerman RN) * 0849 (Given - Provider: Tai Banks RN) * 2118 (Given - Provider: Corrine Mcintosh RN) * 0803 (Given - Provider: Mike Pandya) * 2100 (Due) aspirin chewable tablet 81 mg 81 mg, oral, Daily, First dose on Sat12/31/24 at 0900 * 0849 (Given - Provider: Tai Banks RN) * 0803 (Given - Provider: Mike Pandya) carvediloL (COREG) tablet 12.5 mg 12.5 mg, oral, 2 times daily with meals, First dose on Sat12/31/24 at 0800, Give with meal or snack. Look-alike/sound-alike medication - verify indication for use. * 0849 (Given - Provider: Tai Banks RN) * 1649 (Given - Provider: Tai Banks RN) * 0802 (Given - Provider: Mike Pandya) * 1722 (Given - Provider: Donna Napoles RN) cefTRIAXone (ROCEPHIN) IVPB 1000 mg/50 mL in iso-osmotic dextrose (20 mg/mL premix) (COMPLETED) 1,000 mg, intravenous, at 100 mL/hr, Administer over 30 Minutes, Once, On Sat12/30/24 at 1749, For 1 dose, Look-alike/sound-alike medication - verify indication for use. Do not co-administer with calcium-containing solutions such as Lactated Ringers., Indication: UTI * 181 (New Bag - Provider: Rosa Leung RN) * 1856 (Stop Bag - Provider: Rosa Leung RN) cefTRIAXone (ROCEPHIN) IVPB 1000 mg/50 mL in iso-osmotic dextrose (20 mg/mL premix) 1,000 mg, intravenous, at 100 mL/hr, Administer over 30 Minutes, Every 24 hours, First dose on Sat12/31/24 at 1800, Look-alike/sound-alike medication - verify indication for use. Do not co-administerwith calcium-containing solutions such as Lactated Ringers., Indication: UTI * 1701 (New Bag - Provider: Tai Banks RN) * 1731 (Stop Bag - Provider: Corrine Mcintosh, DARI) * 1800 (Due) cholecalciferol (VITAMIN D3) tablet 2,000 Units 2,000 Units, oral, Daily, First dose on Sat12/31/24 at 1515, 1000 units = 25 mcg * 1523 (Given - Provider: Tai Banks RN) * 0803 (Given - Provider: Mike Pandya) doxycycline (VIBRAMYCIN) capsule 100 mg 100 mg, oral, 2 times daily, First dose on Sat12/30/24 at 2200, For 5 days, Indication: Community-acquired pneumonia * 2230 (Given - Provider: Anushka Zimmerman RN) * 0849 (Given - Provider: Tai Banks RN) * 2118 (Given - Provider: Corrine Mcintosh, DARI) * 0802 (Given - Provider: Mike Pandya) * 2100 (Due) ferrous sulfate tablet 325 mg 325 mg, oral, Daily, First dose on Sat12/31/24 at 1515, Give ferrous sulfate 2 hours before or 4 hours after antacids. * 1521 (Given - Provider: Tai Banks RN) * 0802 (Given - Provider: Mike Pandya) fluticasone furoate-vilanteroL (BREO ELLIPTA) 100-25 mcg/dose inhaler 1 puff 1 puff, inhalation, Daily, First dose on Sat12/31/24 at 1530 * 1530 (Not Given - Provider: Ericka Alanis RCP - Reason: Medication not available) * 1153 (Given - Provider: Fátima Sr RCP) furosemide (LASIX) injection 40 mg (COMPLETED) 40 mg, intravenous, Once, On Sat12/31/24 at 1515, For 1 dose, Look-alike/sound-alike medication - verify indication for use. IVP rate = 20 mg/min * 1527 (Given - Provider: Tai Banks RN) furosemide (LASIX) tablet 20 mg (CANCELED) 20 mg, oral, Daily, First dose on Sat12/31/24 at 0900, Look-alike/sound-alike medication - verify indication for use. * 0850 (Given - Provider: Tai Banks RN) gabapentin (NEURONTIN) capsule 800 mg 800 mg, oral, 3 times daily, First dose on Sat12/30/24 at 2215, Look-alike/sound-alike medication -verify indication for use. * 2315 (Given - Provider: Anushka Zimmerman RN) * 0620 (Given - Provider: Anushka Zimmerman RN) * 1342 (Given - Provider: Tai Banks RN) * 2118 (Given - Provider: Corrine Mcintosh, DARI) * 0723 (Canceled Entry - Provider: Donna Napoles RN - Comment: pt previously refused and is requesting dose now) * 0802 (Given - Provider: Mike Pandya) * 1408 (Given - Provider: Mike Pandya) * 2200 (Due) guaiFENesin (MUCINEX) tablet 600 mg 600 mg, oral, Every 12 hours scheduled, First dose on Sat12/30/24 at 2200, Look-alike/sound-alike medication - verify indication for use. Do not crush or chew. * 2230 (Given - Provider: Anushka Zimmerman RN) * 0849 (Given - Provider: Tai Banks RN) * 2119 (Given - Provider: Corrine Mcintosh, DARI) * 0841 (Given - Provider: Mike Pandya) * 2100 (Due) insulin lispro (HumaLOG) injection 2-10 Units 2-10 Units, subcutaneous, 3 times daily with meals, First dose on Sat12/31/24 at 0800, Daytime hyperglycemia dosing. For blood glucose 151-200 mg/dL, give 2 units. For blood glucose 201-250 mg/dL, give 4 units. For blood glucose 251-300 mg/dL, give 6 units. For blood glucose 301-350 mg/dL, give 8 units. For blood glucose 351-400 mg/dL, give 10 units. Give even if NPO or meals skipped. Do NOT givemore often then every 4 hours when NPO. Notify prescriber if blood glucose greater than 400 mg/dL. Look-alike/sound-alike medication - verify indication for use. Prime with 2 units of insulin prior to administration. Prandial/supplemental Insulin. Pre-filled pens stable 28 days at room temperature.Insulin lispro should be administered within 15 minutes before or immediately after a meal. * 0906 (Given - Provider: Tai Banks RN) * 1202 (Given - Provider: Tai Banks RN) * 1651 (Given - Provider: Tai Banks RN) * 0758 (Given - Provider: Mike Pandya) * 1138 (Given - Provider: Mike Pandya) * 1700 (Due) insulin lispro (HumaLOG) injection 2-8 Units 2-8 Units, subcutaneous, Nightly, First dose on Sat12/30/24 at 2200, Bedtime hyperglycemia dosing. For blood glucose 201-250 mg/dL, give 2 units. For blood glucose 251-300 mg/dL, give 4 units. For blood glucose 301-350 mg/dL, give 6 units. For blood glucose 351-400 mg/dL, give 8 units. Give even ifNPO or meals skipped. Do NOT give more often then every 4 hours when NPO. Notify prescriber if blood glucose greater than 400 mg/dL. Look-alike/sound-alike medication - verify indication for use. Prime with 2 units of insulin prior to administration. Prandial/supplemental Insulin. Pre-filled pens stable 28 days at room temperature. Insulin lispro should be administered within 15 minutes before orimmediately after a meal. * 2200 (Not Given - Provider: Anushka Zimmerman RN - Reason: Order parameters not met) * 2200 (Not Given - Provider: Corrine Mcintosh RN - Reason: Order parameters not met) * 2200 (Due) ipratropium-albuteroL (DUONEB) 0.5 mg-3 mg(2.5 mg base)/3 mL nebulizer solution 3 mL (COMPLETED) 3 mL, nebulization, Once, On Sat12/30/24 at 1510, For 1 dose, Implement INPATIENT/ED BronchodilatorClinical Practice Guidelines? Yes * 1531 (Given - Provider: Fátima Sr RCP) ipratropium-albuteroL (DUONEB) 0.5 mg-3 mg(2.5 mg base)/3 mL nebulizer solution 3 mL 3 mL, nebulization, Every 4 hours while awake, First dose on Sat12/31/24 at 0700, Implement INPATIENT/ED Bronchodilator Clinical Practice Guidelines? No * 0728 (Given - Provider: Sonja Newman RCP) * 1100 (Not Given - Provider: Sonja Newman RCP - Reason: Patient/family refused) * 1437 (Given - Provider: Sonja Newman RCP) * 1900 (Not Given - Provider: Dayanara Garcia RCP - Reason: Patient/family refused) * 0752 (Given - Provider: Fátima Sr RCP) * 1149 (Given - Provider: Fátima Sr RCP) * 1500 (Due) * 1900 (Due) levoFLOXacin (LEVAQUIN) tablet 750 mg 750 mg, oral, Daily, First dose on Sat12/31/24 at 1515, Food-Drug Interaction Education Required Look-alike/sound-alike medication - verify indication for use May alter blood glucose or insulin requirements Avoid giving within 2 hours before or after antacids, or products containing zinc or iron Take on empty stomach at least 1 hour before or 2 hours after meals Enteral Feeding Instructions: Hold tube feedings for ONE hour before and TWO hours after administration Do NOT give any oral form (tablet, suspension) through j-tube, Fluoroquinolones contain FDA Black Box warnings. Due to safety concerns, avoid use in acute bacterial sinusitis, acute bacterial exacerbation of chronic bronchitis, or acute uncomplicated cystitis if possible. Use alternative treatment if available. I acknowledgethe Black Box warnings of fluoroquinolones. * 1520 (Given - Provider: Tai Banks RN) * 0841 (Given - Provider: Mike Pandya) levothyroxine (SYNTHROID, LEVOTHROID) tablet 150 mcg 150 mcg, oral, Before breakfast, First dose on Sat12/31/24 at 0700, Look-alike/sound-alike medication. Verify indication for use Administer on empty stomach at least ONE hour before or TWO hours after food Enteral Feeding: For 7 days or less of tube feeding- do NOT hold tube feedings, after 7 days-hold tube feedings ONE hour before and ONE hour after administration DOES NOT APPLY TO NEONATESMonitor thyroid function tests weekly * 0620 (Given - Provider: Anushka Zimmerman RN) * 0841 (Given - Provider: Mike Pandya) losartan (COZAAR) tablet 100 mg 100 mg, oral, Daily, First dose on Sat12/31/24 at 0900, Look-alike/sound-alike medication - verify indication for use. * 0849 (Given - Provider: Tai Banks RN) * 0840 (Given - Provider: Mike Pandya) methocarbamoL (ROBAXIN) tablet 750 mg 750 mg, oral, 4 times daily, First dose on Sat12/31/24 at 1700, Indications: muscle spasm * 1650 (Given - Provider: Tai Banks RN) * 2119 (Given - Provider: Corrine Mcintosh RN) * 0805 (Given - Provider: Mike Pandya) * 1141 (Given - Provider: Mike Pandya) * 1722 (Given - Provider: Donna Napoles RN) * 2200 (Due - Provider: Artur Cordoba [facility]) methylPREDNISolone sod suc(PF) (Solu-MEDROL) injection 125 mg (COMPLETED) 125 mg, intravenous, Once, On Sat12/30/24 at 1510, For 1 dose, May alter blood glucose or insulin requirements. Look-alike/sound-alike medication - verify indication for use. * 1529 (Given - Provider: Rosa Leung RN) methylPREDNISolone sod suc(PF) (Solu-MEDROL) injection 40 mg 40 mg, intravenous, Every 8 hours, First dose on Sat12/30/24 at 2200, May alter blood glucose or insulin requirements. Look-alike/sound-alike medication - verify indication for use. * 2227 (Given - Provider: Anushka Zimmerman RN) * 0609 (Given - Provider: Anushka Zimmerman RN) * 1341 (Given - Provider: Tai Banks RN) * 2116 (Given - Provider: Corrine Mcintosh RN) * 0805 (Given - Provider: Mike Pandya) * 1409 (Given - Provider: Mike Pandya) * 2200 (Due) metoprolol succinate XL (TOPROL XL) 24 hr tablet 25 mg 25 mg, oral, Daily, First dose on Sat12/31/24 at 0900, Look-alike/sound-alike medication - verify indication for use. Do not crush or chew. * 0849 (Given - Provider: Tai Banks RN) * 0802 (Given - Provider: Mike Pandya) nicotine (NICODERM CQ) 21 mg/24 hr 1 patch 1 patch, transdermal, Administer over 24 Hours, Daily, First dose on Sat12/31/24 at 1515, Remove patch prior to MRI procedure as serious lloyd may occur- patch may be reapplied. Remove previous patch, if present, before applying new. * 1521 (Medication Applied - Provider: Tai Banks RN) * 0806 (Medication Applied - Provider: Mike Pandya) * 0859 (Medication Removed - Provider: Mike Pandya) * 0900 (Canceled Entry - Provider: Mike Pandya) pantoprazole (PROTONIX) EC tablet 40 mg 40 mg, oral, 2 times daily before meals, First dose on Sat12/31/24 at 0700, Look-alike/sound-alike medication - verify indication for use. If patient is receiving enteral feeding, consider alternative PPI or continue IV pantoprazole until the delayed-release tablet can be taken orally, Indication: GERD * 0620 (Given - Provider: Aunshka Zimmerman RN) * 1523 (Given - Provider: Tai Banks RN) * 0840 (Given - Provider: Mike Pandya) * 1722 (Given - Provider: Donna Napoles RN) potassium chloride (KLOR-CON M 20) CR tablet 20 mEq 20 mEq, oral, Daily, First dose on Sat12/31/24 at 1115, Do not crush or chew. * 1205 (Given - Provider: Tai Banks RN) * 0805 (Given - Provider: Mike Pandya) QUEtiapine (SEROquel) tablet 25 mg 25 mg, oral, Nightly, First dose on Sat12/30/24 at 2215, Look-alike/sound-alike medication - verifyindication for use. * 2316 (Given - Provider: Anushka Zimmerman RN) * 211 (Given - Provider: Corrine Mcintosh, DARI) * 2199 (Due) rosuvastatin (CRESTOR) tablet 5 mg 5 mg, oral, Nightly, First dose on Jenn 12/31/24 at 2200, Look-alike/sound-alike medication - verify indication for use. * 220 (Given - Provider: Corrine Mcintosh RN) * 220 (Due) sucralfate (CARAFATE) 100 mg/mL suspension 1,000 mg (CANCELED) 1,000 mg (1 g), oral, 4 times daily before meals and nightly, First dose on Sat12/30/24 at 2315, Shake well. Administer with water on an empty stomach. To reduce the potential of adversely affecting the absorption of other drugs, administer other drugs 2 hours prior to sucralfate DO NOT give with enteral feedings- consider alternative agents: PPI or H2 receptor antagonist * 2317 (Given - Provider: Anushka Zimmerman RN) * 0850 (Given - Provider: Tai Banks RN) * 1100 (Not Given - Provider: Tai Banks RN - Reason: Patient/family refused) * 1529 (Given - Provider: Tai Banks RN) * 2120 (Not Given - Provider: Corrine Mcintosh RN - Reason: Patient/family refused) * 0700 (Canceled Entry - Provider: Mike Pandya) venlafaxine XR (EFFEXOR XR) 24 hr capsule 150 mg 150 mg, oral, Daily, First dose on Jenn 12/31/24 at 1515, Look-alike/sound-alike medication - verify indication for use. Do not crush or chew. * 1515 (Given - Provider: Tai Banks RN) * 0804 (Given - Provider: Mike Pandya) venlafaxine XR (EFFEXOR XR) 24 hr capsule 75 mg 75 mg, oral, Daily, First dose on Jenn 12/31/24 at 1515, Look-alike/sound-alike medication - verify indication for use. Do not crush or chew. * 1522 (Given - Provider: Tai Banks RN) * 0803 (Given - Provider: Mike Pandya) Medication Order//05/2024 acetaminophen (TYLENOL) tablet 650 mg 650 mg, oral, Every 4 hours PRN, mild pain - pain scale 1-3, temperature greater than 38 C, headaches, Temperature greater than 38.3 C, Starting on Sat12/30/24 at 2153, [Warning: Total Acetaminophen not to exceed more than 4 grams (4000 mg) in 24 hours] alum-mag hydroxide-simeth (MAALOX) 200-200-20 mg/5 mL suspension 30 mL 30 mL, oral, 4 times daily after meals and at bedtime as needed, dyspepsia, Starting on Sat12/30/24at 2153, Look-alike/sound-alike medication - verify indication for use. Shake well., Indications: dyspepsia benzonatate (TESSALON PERLES) capsule 200 mg 200 mg, oral, 3 times daily PRN, cough, Starting on Jenn 12/31/24 at 1505, Do not crush, chew or dissolve. dextrose (GLUTOSE) 40 % gel 15 g 15 g, oral, As needed, low blood sugar, blood glucose less than 70 mg/dL, Starting on Sat12/30/24 at 2153, If patient conscious and taking PO. If blood glucose is not greater than 70 mg/dL after initial treatment, repeat treatment. dextrose 5 % (D5W) infusion 100 mL/hr, intravenous, Continuous PRN, blood glucose less than 70 mg/dL, Starting on Sat12/30/24 at 2153, For 365 days, Use immediately following dextrose 50% or glucagon treatment for patients who are unconscious or NPO. Contact prescriber for additional orders. If blood glucose is not greater than 70 mg/dL after initial treatment, repeat treatment. dextrose 50 % in water (D50W) 50% solution 25 mL 25 mL, intravenous, As needed, low blood sugar, blood glucose less than 70 mg/dL and unconscious orNPO with IV access, Starting on Sat12/30/24 at 2153, Push over 1-3 minutes STAT. If conscious and not NPO, immediately follow with meal tray or high protein (7 grams) snack if tray not available. If NPO, initiate 5% dextrose in water at 100 mL/hr and contact prescriber for additional orders. If blood glucose is not greater than 70 mg/dL after initial treatment, repeat treatment. VESICANT (RED) Warning: HYPERTONIC solution. glucagon HCL injection 1 mg 1 mg, intramuscular, As needed, low blood sugar, blood glucose less than 70 mg/dL and unconscious or NPO without IV access., Starting on Sat12/30/24 at 2153, If conscious and not NPO, immediately follow with meal tray or high protein (7Grams) snack if tray not available. If NPO, initiate IV 5% Dextr ose/Water at 100 mL/hr and contact prescriber for additional orders. If blood glucose is not greater than 70 mg/dL after initial treatment, repeat treatment. iohexoL (OMNIPAQUE) 350 mg iodine/mL injection 100 mL (COMPLETED) 100 mL, intravenous, Once in imaging, contrast, Starting on Sat12/30/24 at 1547, For 1 dose, VESICANT (RED) * 1647 (Given - Provider: AMADEO Jain) magnesium sulfate IVPB 2000 mg/50 mL in iso-osmotic water (40 mg/mL premix) 2,000 mg, intravenous, at 25 mL/hr, Administer over 120 Minutes, As needed, Magnesium level 1.7 to 1.9 mg/dL, or Ionized Magnesium level 0.45 to 0.5 mmol/L., Starting on Sat12/30/24 at 2153, Recheck magnesium level 4 hours after infusion complete. With each magnesium result continue the replacementorders as needed. magnesium sulfate IVPB 4000 mg/100 mL in iso-osmotic water (40 mg/mL premix) 4,000 mg, intravenous, at 25 mL/hr, Administer over 240 Minutes, As needed, Magnesium level 1.6 mg/dL or less, or Ionized Magnesium level 0.44 mmol/L or less, Starting on Sat12/30/24 at 2153, Recheckmagnesium level 4 hours after infusion complete. With each magnesium result continue the replacement orders as needed. melatonin (CIRCADIN) tablet 3 mg 3 mg, oral, Nightly PRN, sleep, Starting on Jenn 12/31/24 at 1505 ondansetron (PF) (ZOFRAN) injection 4 mg 4 mg, intravenous, Every 6 hours PRN, nausea, vomiting, Starting on Sat12/30/24 at 2153, Intravenous administration preferred to be given over 2-5 minutes. oxyCODONE-acetaminophen (PERCOCET) 5-325 mg per tablet 1 tablet 1 tablet, oral, Every 6 hours PRN, moderate pain - pain scale 4-6, severe pain - pain scale 7-10, Starting on Sat12/30/24 at 2324, Look-alike/sound-alike medication - verify indication for use. * 1521 (Given - Provider: Tai Banks RN) * 2128 (Given - Provider: Corrine Mcintosh RN) * 0805 (Given - Provider: Mike Pandya) * 1408 (Given - Provider: Mike Pandya) potassium chloride (K-TAB,KLOR-CON) CR tablet 30-50 mEq(Linked Group 1) 30-50 mEq, oral, As needed, Potassium Supplementation, Starting on Sat12/30/24 at 2153, Progress tooral potassium replacement when patient tolerating oral intake. If dose administered, recheck potassium level 4 hours after last dose. For potassium level 3.4 to 3.8 mmol/L and GFR 30 mL/min or greater=30 mEq. For potassium level 3.1 to 3.3 mmol/L and GFR 30 mL/min or greater=40 mEq. For potassium level 3 mmol/L or less and GFR 30 mL/min or greater=50 mEq. Do not crush or chew. * 2233 (See Alternative - Provider: Anushka Zimmerman RN) * 0612 (Given - Provider: Anushka Zimmerman RN) * 0624 (See Alternative - Provider: Anushka Zimmerman RN) * 1204 (Given - Provider: Tai Banks RN) * 0804 (Given - Provider: Mike Pnadya) potassium chloride (KAYCIEL) 20 mEq/15 mL solution 30-50 mEq(Linked Group 1) 30-50 mEq, oral, As needed, Potassium Supplementation, Starting on Sat12/30/24 at 2153, Progress tooral potassium replacement when patient tolerating oral intake. If dose administered, recheck potassium level 4 hours after last dose. For potassium level 3.4 to 3.8 mmol/L and GFR 30 mL/min or greater=30 mEq. For potassium level 3.1 to 3.3 mmol/L and GFR 30 mL/min or greater=40 mEq. For potassium level 3 mmol/L or less and GFR 30 mL/min or greater=50 mEq. Must dilute before use - Mix in 3-8 ounces of water or juice before administration When administering in feeding tube, flush before and after per policy and monitor potassium levels * 2233 (Given - Provider: Anushka Zimmerman RN) * 0612 (See Alternative - Provider: Anushka Zimmerman RN) * 0624 (Given - Provider: Anushka Zimmerman RN) * 1204 (See Alternative - Provider: Tai Banks RN) * 0804 (See Alternative - Provider: Mike Pandya) potassium chloride IVPB 10 mEq/100 mL in water (0.1 mEq/mL premix)(Linked Group 1) 10 mEq, intravenous, at 100 mL/hr, Administer over 60 Minutes, As needed, POTASSIUM REPLACEMENT, Starting on Sat12/30/24 at 2153, IV if unable to use oral/enteral with the current dosing strategies Potassium level 3 mmol/L or less administer Potassium Chloride 50 mEq Potassium level 3.1 to 3.3 mmol/L administer Potassium Chloride 40 mEq Potassium level 3.4 to 3.8 mmol/L administer Potassium Chloride 30 mEq Use central line when applicable. Recheck potassium level 1 hour after total IVPB infusion complete, With each potassium result continue the replacement orders as needed VESICANT (YELLOW) Infuse each 10 mEq over a minimum of 1 hour. * 2233 (See Alternative - Provider: Anushka Zimmerman RN) * 0612 (See Alternative - Provider: Anushka Zimmerman RN) * 0624 (See Alternative - Provider: Anushka Zimmerman RN) * 1204 (See Alternative - Provider: Tai Banks RN) * 0804 (See Alternative - Provider: Mike Pandya) sennosides-docusate sodium (SENOKOT-S) 8.6-50 mg 1 tablet 1 tablet, oral, Every 12 hours PRN, constipation, Starting on Sat12/30/24 at 2153 sodium chloride 0.9 % flush 10 mL 10 mL, intravenous, As needed, line care, Starting on Sat12/30/24 at 1547 * 1647 (Given - Provider: AMADEO Jain) * 2229 (Given - Provider: Anushka Erasmo, RN) * 0611 (Given - Provider: Anushka Zimmerman RN) * 0822 (Given - Provider: Mike Pandya) * 1409 (Given - Provider: Mike Pandya) sodium chloride 0.9 % flush bag 25 mL, intravenous, at 100 mL/hr, Administer over 15 Minutes, As needed, line care, line care afterIVPB administration, Starting on Sat12/30/24 at 2152 sodium chloride 0.9 % infusion 20 mL/hr, intravenous, Continuous PRN, to maintain patency of lines, Starting on Sat12/30/24 at 2152 sodium chloride 0.9 % radiology injection (COMPLETED) 80 mL, intravenous, Once in imaging, pre/post contrast, Starting on Sat12/30/24 at 1547, For 1 dose * 1647 (Given - Provider: AMADEO Jain) Order Group 1: potassium chloride (K-TAB,KLOR-CON) CR tablet 30-50 mEqJump to med 30-50 mEq, oral, As needed, Potassium Supplementation, Starting on Sat12/30/24 at 2152, Progress tooral potassium replacement when patient tolerating oral intake. If dose administered, recheck potassium level 4 hours after last dose. For potassium level 3.4 to 3.8 mmol/L and GFR 30 mL/min or greater=30 mEq. For potassium level 3.1 to 3.3 mmol/L and GFR 30 mL/min or greater=40 mEq. For potassium level 3 mmol/L or less and GFR 30 mL/min or greater=50 mEq. Do not crush or chew. Or potassium chloride (KAYCIEL) 20 mEq/15 mL solution 30-50 mEqJump to med 30-50 mEq, oral, As needed, Potassium Supplementation, Starting on Sat12/30/24 at 2153, Progress tooral potassium replacement when patient tolerating oral intake. If dose administered, recheck potassium level 4 hours after last dose. For potassium level 3.4 to 3.8 mmol/L and GFR 30 mL/min or greater=30 mEq. For potassium level 3.1 to 3.3 mmol/L and GFR 30 mL/min or greater=40 mEq. For potassium level 3 mmol/L or less and GFR 30 mL/min or greater=50 mEq. Must dilute before use - Mix in 3-8 ounces of water or juice before administration When administering in feeding tube, flush before and after per policy and monitor potassium levels Or potassium chloride IVPB 10 mEq/100 mL in water (0.1 mEq/mL premix)Jump to med 10 mEq, intravenous, at 100 mL/hr, Administer over 60 Minutes, As needed, POTASSIUM REPLACEMENT, Starting on Sat12/30/24 at 2153, IV if unable to use oral/enteral with the current dosing strategies Potassium level 3 mmol/L or less administer Potassium Chloride 50 mEq Potassium level 3.1 to 3.3 mmol/L administer Potassium Chloride 40 mEq Potassium level 3.4 to 3.8 mmol/L administer Potassium Chloride 30 mEq Use central line when applicable. Recheck potassium level 1 hour after total IVPB infusion complete, With each potassium result continue the replacement orders as needed VESICANT (YELLOW) Infuse each 10 mEq over a minimum of 1 hour. Care Teams (unrecognized sec tion and content) Team Status: Active Member Role Status Dates NON STAFF Primary Care Provider Active Team Status: Inactive Member Role Status Dates Carlo Grimaldo DO Emergency Provider Active Sta rt: January 19, 2024 End: January 23, 2024NON STAFFPrimary Care ProviderActiveStart: January 19, 2024 End: January 23, 2024MoMatty Sanchez ProviderActiveStart: January 19, 2024 End: January 23, 2024Goran Mezaending ProviderActiveStart: January 19, 2024 End: January 22declan Guzman LPNOther ProviderActiveStart: January 19, 2024 End: January 23, 2024Americo Gomez MDOther ProviderActiveStart: January 19, 2024 End: January 23, 2024Michelle Joyce NP-Sayraher ProviderActiveStart: January 19, 2024 End: January 23, 2024Bjorn Ramsey MDOther ProviderActiveStart: January 19, 2024 End: January 23, 2024Artur Guo MDOther ProviderActiveStart: January 19, 2024 End: January 23, 2024 Team Status: Active Member Role Status Dates Carlo Grimaldo DO Emergency Provider Active Sta rt: January 20, 2024 NON STAFFPrimary Care ProviderActiveStart: January 20, 2024 Matty Ocampo ProviderActiveStart: January 20, 2024 Fátima Douglas RNOther ProviderActiveStart: January 20, 2024 Natalia Murrell DOOther ProviderActiveStart: January 20, 2024 Rachel Ramirez MDOther ProviderActiveStart: January 20, 2024 Ab Donaldson MDOther ProviderActiveStart: January 20, 2024 Lalito Murillo MDOther ProviderActiveStart: January 20, 2024 Fox Jorgensen MDOther ProviderActiveStart: January 20, 2024 Josie Robertson , APRNOther ProviderActiveStart: January 20, 2024 Elizabeth Dutton MDOther ProviderActiveStart: January 20, 2024 Dorothy Ramsey MDOther ProviderActiveStart: January 20, 2024 Mirna Butts MDOther ProviderActiveStart: January 20, 2024 Ariana Abrams , FLUME TENDER-BCOther ProviderActiveStart: January 20, 2024 Ziggy Barraza MDAttending Provider, Other ProviderActiveStart: January 20, 2024 Luis Fernando Strauss MDOther ProviderActiveStart: January 20, 2024 Asia Guzman LPNOt ProviderActiveStart: January 20, 2024 Americo Gomez MDOther ProviderActiveStart: January 20, 2024 Michelle Joyce RABBET OPERATOR-COther ProviderActiveStart: January 20, 2024 Bjorn Ramsey MDOther ProviderActiveStart: January 20, 2024 Artur Guo MDOther ProviderActiveStart: January 20, 2024 Team Status: Active Member Role Status Dates Carlo Grimaldo DO Emergency Provider Active Sta rt: January 20, 2024 NON STAFFPrimary Care ProviderActiveStart: January 20, 2024 Matty Ocampo ProviderActiveStart: January 20, 2024 Luis Fernando Strauss MDOther ProviderActiveStart: January 20, 2024 Ziggy Barraza MDOther ProviderActiveStart: January 20, 2024 Asia Guzman LPNOt ProviderActiveStart: January 20, 2024 Americo Gomez MDOther ProviderActiveStart: January 20, 2024 Michelle Joyce , ASIA-COther ProviderActiveStart: January 20, 2024 Jose D Nunez ProviderActiveStart: January 20, 2024 Artur Guo , [facility] Provider, Other ProviderActiveStart: January 20, 2024 Team MemberRelationshipSpecialtyStart DateEnd Date Osmar Rodriguez MD [address] [place] [address] [address] [place] [address] PCP - GeneralFamily Fbivfyer19/30/21Team MemberRelationshipSpecialtyStart Date End Date Osmar Rodriguez MD [address] [place] [address] [address] [place] [address] PCP - GeneralFamily Qfnlesxz51/30/21Team MemberRelationshipSpecialtyStart Date End Date Osmar Rodriguez MD [address] [place] [address] [address] [place] [address] PCP - GeneralFamily Ivycatho32/30/21Team MemberRelationshipSpecialtyStart Date End Date Osmar Rodriguez MD [address] [place] [address] [address] [place] [address] PCP - GeneralFamily Xnnlgcxi00/30/21Team MemberRelationshipSpecialtyStart Date End Date Vahid Nagy, TRUST ADMINISTRATOR [address] [place] [address] PCP - GeneralCertified Nurse Jqchouxmtvym29/27/19Team MemberRelationship SpecialtyStart DateEnd Date Osmar Rodriguez MD [address] [place] [address] [address] [place] [address] PCP - GeneralFamily Glroqscx14/30/21Team MemberRelationshipSpecialtyStart Date End Date Osmar Rodriguez MD [address] [place] [address] [address] [place] [address] PCP - GeneralFamily Epgwvikq95/30/21Team MemberRelationshipSpecialtyStart Date End Date Osmar Rodriguez MD [address] [place] [address] [address] PCP - GeneralFamily Rmgvecip75/30/21Team MemberRelationshipSpecialtyStart Date End Date Vahid Nagy, TRUST ADMINISTRATOR [address] [place] [address] PCP - GeneralCertified Nurse Kqhptnvnspxv91/27/19Te MemberRelationship SpecialtyStart DateEnd Date Osmar Rodriguez MD [address] [place] [address] [address] PCP - GeneralFamily Sxhgtzcy81/30/21Te MemberRelationshipSpecialtyStart Date End Date Osmar Rodriguez MD [address] [place] [address] [place] [id number] PCP - GeneralFamily Aspmssdq03/30/21Team MemberRelationshipSpecialtyStart Date End Date Osmar Rodriguez MD [address] [place] [address] [address] PCP - GeneralFamily Ewvitprx74/30/21Team MemberRelationshipSpecialtyStart Date End Date Osmar Rodriguez MD [address] [place] [address] [address] PCP - GeneralFamily Asbcmecg75/30/21Team MemberRelationshipSpecialtyStart Date End Date Osmar Rodriguez MD [address] [place] [address] [address] PCP - GeneralFamily Eukymobn63/30/21 Team Status: Active Member Role Status Dates Carlo Grimaldo DO Emergency Provider Active Sta rt: January 19, 2024 NON STAFFPrimary Care ProviderActiveStart: January 19, 2024 Matty Ocampo Provider, Attending ProviderActiveStart: January 19, 2024 Team MemberRelationshipSpecialtyStart DateEnd Date Osmar Rodriguez MD [address] [place] [address] [address] [place] [address] PCP - GeneralFamily Gkcgpibf54/7/24Team MemberRelationshipSpecialtyStart DateEnd Date Osmar Rodriguez MD [address] [place] [address] [address] [place] [address] PCP - GeneralFamily Pukgmfgc51/7/24Team MemberRelationshipSpecialtyStart DateEnd Date Osmar Rodriguez MD [address] [place] [address] [address] [place] [address] PCP - GeneralFamily Zuubadjo58/7/24Team MemberRelationshipSpecialtyStart DateEnd Date Osmar Rodriguez MD [address] [place] [address] [address] [place] [address] PCP - GeneralFamily Qhdybvhy48/7/24Team MemberRelationshipSpecialtyStart DateEnd Date Osmar Rodriguez MD [address] [place] [address] [address] [place] [address] PCP - GeneralFamily Xeeayihd99/7/24Team MemberRelationshipSpecialtyStart DateEnd Date Osmar Rodriguez MD [address] [place] [address] [address] [place] [address] PCP - GeneralFamily Wsledfcc50/7/24Team MemberRelationshipSpecialtyStart DateEnd Date Osmar Rodriguez MD [address] [place] [address] [address] [place] [address] PCP - GeneralFamily Cswdavuv19/30/21Team MemberRelationshipSpecialtyStart Date End Date Osmar Rodriguez MD [address] [place] [address] [facility] [address] [place] [address] PCP - GeneralFamily Vedxmwzw20/30/21Team MemberRelationshipSpecialtyStart Date End Date Osmar Rodriguez MD [address] [place] [address] [address] [place] [address] PCP - GeneralFamily Uzwnejcu15/30/21Team MemberRelationshipSpecialtyStart Date End Date Osmar Rodriguez MD [address] [place] [address] [place] [address] PCP - GeneralFamily Bgjwdqza80/30/21Team MemberRelationshipSpecialtyStart Date End Date Osmar Rodriguez MD [address] [place] [address] [facility] [address] [place] [address] PCP - GeneralFamily Medicine12/07/24Team MemberRelationshipSpecialtyStart DateEnd Date Osmar Rodriguez MD [address] [place] [address] [place] [address], [place] [address] PCP - GeneralFamily Idfbnxsd53/7/24Team MemberRelationshipSpecialtyStart DateEnd Date Osmar Rodriguez MD [address] [place] [address] [address] [place] [address] PCP - GeneralFamily Medicine12/07/24 Goals (unrecognized section and content) Goals may be documented in a n alternate section FOR RECORDS PERTAINING TO PATIENTS WHO ARE OR HAVE BEEN ENROLLED IN A CHEMICAL DEPENDENCY/SUBSTANCEABUSE PROGRAM, SOME INFORMATION MAY BE OMITTED. This clinical summary was aggregated from multiple sources. Caution should be exercised in using it in the provision of clinical care. This summary normalizes information from multiple sources, and as a consequence, information in this document may materially change the coding, format and clinical context of patient data. In addition, data may be omitted in some cases. CLINICAL DECISIONS SHOULD BE BASED ON THE PRIMARY CLINICAL RECORDS. [facility] [employer] [facility]. provides no warranty or guarantee of the accuracy or completeness of information in this document.
--- NOTE | 2025-02-15 16:56 | XR_ITS ---
The [address] [address] Patient Name: JONATAN SPENCER MRN: [id number] date: 1960 Sex: F Assigned Patient Location: ED.MAIN Current Patient Location: ED.MAIN Accession/Order Number: [id number] Exam Date: 02/15/2025 16:46 Report Date: 02/15/2025 17:24 At the request of: ENEIDA PONCE MD Procedure: XR hip RT 2V w/ pelvis 2 views right hip a single view pelvis compared to prior examination 03/11/2023 HISTORY: Right hip pain after rolling in bed. Extensive right hip degeneration with subjective sclerotic and cystic changes of the acetabulum and the humeral head. Interval flattening of humeral head. No acute displaced fracture. The right acetabular protrusion, chronic finding. Surgical clips. Atherosclerosis. Extensive lumbar degeneration. Healed right inferior pubic ramus fracture. XR/XR hip RT 2V w/ pelvis IMPRESSION: Progressive extensive right hip degeneration. No acute displaced fracture. Impression dictated by: Americo De La Cruz M.D. 02/15/2025 5:24 PM Dictation Location: [place] [address] Electronically authenticated by: [id number] Y Date: 02/15/2025 17:24
[2025-02-15 17:16] VITALS: BP 126/45; PULSE 91; O2SAT 96
[2025-02-15] MEDS: OXYCODONE HCL/ACETAMINOPHEN 5MG/325MG 1 TAB PO (17:50)
== END 2025-02-15 18:40 | disposition home or self-care (01) ==
PROVIDERS: Emergency Provider Emergency Medicine
DX: M25.551 Pain in right hip (principal); M54.9 Dorsalgia, unspecified; F17.200 Nicotine dependence, unspecified, uncomplicated; G89.29 Other chronic pain
CPT/HCPCS: 72131; 73502; 76376; 96372; 99285; J1885

== ENCOUNTER 2025-02-16 02:43 | Inpatient (IN) | payer MEDICAID, SELFPAY ==
[2025-02-16] VITALS (23 sets, daily range): BP systolic 99–164; BP diastolic 45–97; PULSE 90–99; TEMP 36.6–36.9; O2SAT 86–99; BMI 19.8
--- NOTE | 2025-02-16 03:01 | ED.GENADUL1 ---
HPI HPI - General Adult General Chief complaint: Back Pain/Injury Stated complaint: CONFUSION, WEAKNESS Time Seen by Provider: 02/16/25 02:58 Source: patient Mode of arrival: ambulance Limitations: altered mental status History of Present Illness HPI narrative: right hip pain . Known severe DJD of right hip. seen yesterday for hip pain and now returns. she is semi sedated at this time. She states she is tired because she has not been able to sleep. Denies injury to her hip 02 dependent COPD. usally 2L NC 02. Per nursing her son felt she was also confused and called squad Related Data Home Medications ?Medication ?Instructions ?Recorded ?Confirmed losartan 100 mg tablet 100 mg PO QDAY 09/24/22 02/16/25 methocarbamol 750 mg tablet 750 mg PO QID 09/24/22 02/16/25 gabapentin 800 mg tablet 800 mg PO TID 03/18/23 02/16/25 (Neurontin) levothyroxine 150 mcg tablet 150 mcg PO DAILY 03/18/23 02/16/25 (Synthroid) albuterol sulfate 90 mcg/actuation 2 puff inhalation QID PRN 07/17/23 02/16/25 aerosol inhaler shortness of breath or wheezing furosemide 20 mg tablet 20 mg PO DAILY 07/17/23 02/16/25 isosorbide mononitrate 30 mg 30 mg PO DAILY 07/17/23 07/17/23 tablet,extended release 24 hr metoprolol succinate 25 mg 25 mg PO DAILY 07/17/23 02/16/25 tablet,extended release 24 hr venlafaxine 75 mg capsule,extended 75 mg PO DAILY 07/17/23 07/17/23 release 24 hr zolpidem 10 mg tablet 5 mg PO QPM PRN sleep 07/17/23 02/16/25 albuterol sulfate 2.5 mg/3 mL 2.5 mg inhalation Q6H PRN 02/16/25 02/16/25 (0.083 %) solution for nebulization shortness of breath or wheezing amitriptyline 10 mg tablet 10 mg PO .QHS 02/16/25 02/16/25 amlodipine 10 mg tablet 10 mg PO DAILY 02/16/25 02/16/25 apixaban 5 mg tablet (Eliquis) 2.5 mg PO Q12H 02/16/25 02/16/25 ascorbic acid (vitamin C) 500 mg 500 mg PO BID 02/16/25 02/16/25 tablet aspirin 81 mg chewable tablet 1 tab PO DAILY 02/16/25 02/16/25 budesonide-formoterol HFA 160 2 puff inhalation Q12H 02/16/25 02/16/25 mcg-4.5 mcg/actuation aerosol inhaler (Symbicort) ergocalciferol (vitamin D2) 1,250 1,250 mcg PO QWEEK 02/16/25 02/16/25 mcg (50,000 unit) capsule hydroxyzine HCl 25 mg tablet 25 mg PO Q6H PRN anxiety 02/16/25 02/16/25 multivitamin with folic acid 400 1 tab PO DAILY 02/16/25 02/16/25 mcg tablet (Daily-Katja (with folic acid)) oxycodone-acetaminophen 7.5 mg-325 1 tab PO Q6H PRN pain 02/16/25 02/16/25 mg tablet pravastatin 40 mg tablet 40 mg PO .QHS 02/16/25 02/16/25 Previous Rx's ?Medication ?Instructions ?Recorded liothyronine 5 mcg tablet 10 mcg (2 x 5 mcg) PO ACB #60 tabs 03/20/23 liothyronine 5 mcg tablet (Cytomel) 10 mcg (2 x 5 mcg) PO DAILY #60 03/20/23 tabs meloxicam 7.5 mg tablet 7.5 mg PO DAILY PRN pain #20 tabs 02/15/25 Allergies Allergy/AdvReac Type Severity Reaction Status Date / Time codeine AdvReac Intermediate Verified 09/24/22 17:23 ceclor AdvReac Intermediate Uncoded 09/24/22 17:23 Opioid HPI Opioid Management Most Recent Opioid Data: Last Pain Scale 10 Today, 03:47 Last Pain Assessment Today, 06:00 Last MAR Pain Assessment Today, 03:47 Last ORT Total Score 1 02/16/25, 09:34 Last ORT Risk Category Low Risk 02/16/25, 09:34 Ur Phencyclidine Scrn, (NEGATIVE) Negative 02/16/25, 03:26 Review of Systems ROS Status of ROS unobtainable due to mental status [facility] Medical History (Updated 02/16/25 @ 11:29 by Alin Laguerre MD) Acute exacerbation of chronic obstructive pulmonary disease ?J44.1 - Chronic obstructive pulmonary disease with (acute) exacerbation (ICD-10) Acute and chronic respiratory failure with hypoxia ?J96.21 - Acute and chronic respiratory failure with hypoxia (ICD-10) Acute exacerbation of CHF (congestive heart failure) ?I50.9 - Heart failure, unspecified (ICD-10) Smoker ?F17.200 - Nicotine dependence, unspecified, uncomplicated (ICD-10) Fall ?W19.XXXA - Unspecified fall, initial encounter (ICD-10) Oxygen dependent ?Z99.81 - Dependence on supplemental oxygen (ICD-10) CHF (congestive heart failure) ?I50.9 - Heart failure, unspecified (ICD-10) HTN (hypertension) ?I10 - Essential (primary) hypertension (ICD-10) Heart attack ?I21.9 - Acute myocardial infarction, unspecified (ICD-10) COPD (chronic obstructive pulmonary disease) ?J44.9 - Chronic obstructive pulmonary disease, unspecified (ICD-10) Surgical History Stented coronary artery ?Z95.5 - Presence of coronary angioplasty implant and graft (ICD-10) Family History (Updated 02/16/25 @ 11:01 by Sejal Flowers RN) Sister Family history of cancer Mother Family history of COPD (chronic obstructive pulmonary disease) Social History (Updated 02/16/25 @ 11:00 by Sejal Flowers RN) Within the past year, how often did you have a drink containing alcohol: never Score interpretation: A score less than 3 is consistent with normal alcohol consumption. Smoking status: Current every day smoker Non-prescribed substance use: denies use Highest level of school completed/degree received: high school graduate Little interest or pleasure in doing things: nearly every day Feeling down, depressed, or hopeless: nearly every day Exam Constitutional Vital Signs, click to edit/add: Last Vital Signs Temp 98.1 F 02/17/25 04:00 Pulse 86 02/17/25 04:00 Resp 16 02/17/25 04:00 BP 92/51 02/17/25 04:00 Pulse Ox 94 L 02/17/25 04:00 O2 Del Method Room Air 02/17/25 04:00 O2 Flow Rate 2 02/16/25 20:33 General appearance: disheveled and appears older than stated age Other: lethargic. reeks of urine HENMT Common normals: normocephalic and head/scalp atraumatic Eye Common normals: conjunctivae normal Respiratory Common normals: no use of accessory muscles and clear to auscultation bilaterally Cardio Common normals: regular rhythm, S1 normal heart sound and S2 normal heart sound Extremity Other: right hip tender Neuro Common normals: oriented x3 and moves all extremities Speech: speech normal Other: lethargic. will wake up to answer questions and then falls back to sleep Course Vital Signs Vital signs: Vital Signs Temperature 98 F 02/16/25 02:49 Pulse Rate 90 02/16/25 02:49 Respiratory Rate 16 02/16/25 02:49 Blood Pressure 99/45 L 02/16/25 02:49 Pulse Oximetry 86 L 02/16/25 02:49 Oxygen Delivery Method Room Air 02/16/25 02:49 Temperature 98.1 F 02/17/25 04:00 Pulse Rate 86 02/17/25 04:00 Respiratory Rate 16 02/17/25 04:00 Blood Pressure 92/51 02/17/25 04:00 Pulse Oximetry 94 L 02/17/25 04:00 Oxygen Delivery Method Room Air 02/17/25 04:00 Oxygen Delivery Flow Rate 2 02/16/25 20:33 Medical Decision Making MDM Narrative Medical decision making narrative: patient presents with right hip pain and confusion. She reeks of urine. she is lethargic but does wake up to answer questions. Initially considered given her narcan as she takes Percocet but held off because she woke up and was very loud with nursing because she wanted something for pain. She then faded off again and was given narcan without much improvement. Xray of the hip yesterday confirmed severe DJD. Labs with leukocytosis and evidence of UTI. Patient given fluids and cipro IVPB and her BP improved. Discussed admission with Dr Laguerre who requested CT of her hip and head before admission,. Care transferred to oncoming physician pending these diagnostic studies Lab Data Labs: Lab Results 02/16/25 02/16/25 Range/Units 03:18 03:26 WBC 18.0 H (4.0-11.0) 10^3/uL RBC 3.20 L (4.20-5.40) 10^6/uL Hgb 8.7 L (12.0-16.0) g/dL Hct 27.4 L (36.0-48.0) % MCV 85.6 (81.0-99.0) fL MCH 27.2 (26.7-34.0) pg MCHC 31.8 (29.9-35.2) g/dL RDW 20.6 H (11.0-15.0) % Plt Count 321 (150-450) 10^3/uL MPV 9.0 L (9.5-13.5) fL Seg Neuts % (Manual) 86.0 H (43.0-75.0) Lymphocytes % (Manual) 6.0 L (20.5-60.0) % Monocytes % (Manual) 8.0 (1.7-12.0) % Eosinophils % (Manual) 0.0 L (0.9-7.0) % Basophils % (Manual) 0.0 L (0.2-2.0) % Neutrophils # (Manual) 15.48 H (1.4-6.5) 10^3/uL Lymphocytes # (Manual) 1.08 L (1.20-3.80) 10^3/uL Monocytes # (Manual) 1.44 H (0.30-0.80) 10^3/uL Eosinophils # (Manual) 0.00 (0.00-0.70) 10^3/uL Basophils # (Manual) 0.00 (0.00-0.10) 10^3/uL Poikilocytosis 2+ Macrocytosis 1+ Stomatocytes 1+ Sodium 137 (136-145) mmol/L Potassium 3.4 L (3.5-5.1) mmol/L Chloride 101 (98-107) mmol/L Carbon Dioxide 27.6 (21.0-32.0) mmol/L Anion Gap 11.8 BUN 14.0 (7.0-18.0) mg/dL Creatinine 0.81 (0.55-1.02) mg/dL Est GFR ( Amer) >60 (>=60 mL/min/1.73m^2) Est GFR (Non-Af Amer) >60 (>=60 mL/min/1.73m^2) BUN/Creatinine Ratio 17.3 Glucose 171 H (74-106) mg/dL Estimat Average Glucose 140 mg/dL Hemoglobin A1c 6.5 H (4.5-6.2) % Lactate 1.6 (0.4-2.0) mmol/L Calcium 8.9 (8.5-10.1) mg/dL Phosphorus 4.3 (2.6-4.7) mg/dL Magnesium 1.8 (1.8-2.4) mg/dL Iron 6.0 L (50.0-170.0) ug/dL TIBC 147.0 L (250.0-450.0) ug/dL % Saturation 4.1 % Ferritin 168.0 (8.0-252.0) ng/mL Total Bilirubin 0.4 (0.2-1.0) mg/dL Direct Bilirubin 0.1 (0.0-0.2) mg/dL AST 18 (15-37) U/L ALT 14 (14-59) U/L Alkaline Phosphatase 121 H (46-116) U/L Lactate Dehydrogenase 250 H (81-234) U/L C-Reactive Protein 33.31 H (<=0.50) mg/dL Total Protein 5.9 L (6.4-8.2) g/dL Albumin 2.1 L (3.4-5.0) g/dL Globulin 3.8 g/dL Albumin/Globulin Ratio 0.6 Vitamin D Level 37.9 ng/mL Folate 27.00 (8.60-58.90) ng/mL TSH 0.292 L (0.358-3.740) uIU/mL Urine Color Lt. yellow (YELLOW) Urine Clarity Clear (CLEAR) Urine pH 6.0 (5.0-9.0) Ur Specific Bryan 1.010 (1.005-1.025) Urine Protein 30 A (NEG/TRACE) mg/dL Urine Glucose (UA) Negative (NEGATIVE) mg/dL Urine Ketones Negative (NEGATIVE) mg/dL Urine Occult Blood Negative (NEGATIVE) Urine Nitrite Negative (NEGATIVE) Urine Bilirubin Negative (NEGATIVE) Urine Urobilinogen 0.2 (0.2-1.0) EU/dL Ur Leukocyte Esterase Small A (NEGATIVE) Urine RBC None seen (0-2) #/HPF Urine WBC 10-20 A (NONE SEEN) #/HPF Ur Squamous Epith Cells Few A (NONE/RARE) #/LPF Urine Crystals None seen (None Seen) #/HPF Urine Bacteria Large A (NONE SEEN) #/HPF Urine Casts None seen (NONE SEEN) #/LPF Urine Mucus None seen (NONE SEEN) Ur [place] Opi[place] Screen Negative (NEGATIVE) Ur Buprenorphine Scrn Negative (NEGATIVE) Ur Oxycodone Screen Positive A (NEGATIVE) Urine Methadone Screen Negative (NEGATIVE) Ur Barbiturates Screen Negative (NEGATIVE) U Tricyclic Antidepress Negative (NEGATIVE) Ur Phencyclidine Scrn Negative (NEGATIVE) Ur Amphetamines Screen Negative (NEGATIVE) U Methamphetamines Scrn Negative (NEGATIVE) U Benzodiazepines Scrn Negative (NEGATIVE) Urine Cocaine Screen Negative (NEGATIVE) U Cannabinoids Screen Negative (NEGATIVE) Discharge Plan Discharge Chief Complaint: Back Pain/Injury Clinical Impression: Acute pain of right hip, Acute UTI, Alteration consciousness Patient Disposition: Admitted As Inpatient Time of Disposition Decision: 08:30 Condition: Fair Discharge Date/Time: 02/16/25 09:08
--- NOTE | 2025-02-16 03:04 | XR_ITS ---
The [place] [id number] Patient Name: JONATAN SPENCER MRN: [id number] date: 1960 Sex: F Assigned Patient Location: ER Current Patient Location: ED.MAIN Accession/Order Number: [id number] Exam Date: 02/16/2025 03:30 Report Date: 02/16/2025 07:35 At the request of: LEA SHINE MD Procedure: XR chest 1V PORTABLE ERECT CHEST 0301 hours CLINICAL HISTORY: Shortness of breath and weakness COMPARISON: CT and chest x-ray 03/18/2023 The cardiac, hilar and mediastinal silhouettes are similar. There is no vascular congestion. Minor scarring or atelectasis is seen. There is no developing consolidation. There is no sizable effusion or pneumothorax. The osseous structures are intact. XR/XR chest 1V IMPRESSION: MINOR CHRONIC CHANGES. NO ACUTE FINDINGS Impression dictated by: Lindsey Menchaca M.D. 02/16/2025 7:35 AM Dictation Location: [place] [address] Electronically authenticated by: [id number] Y Date: 02/16/2025 07:35
[2025-02-16] MEDS: 0.9 % SODIUM CHLORIDE 1,000 ML 999 ML IV (03:40)
[2025-02-16] MEDS: METHYLPREDNISOLONE SOD SUCC PF 125 MG/2 ML VIAL IVP (03:40)
[2025-02-16] MEDS: NALOXONE HCL 0.4 MG/ML VIAL IV (03:40)
[2025-02-16 04:06] LABS: Hematocrit 27.4 % (36.0-48.0); Hemoglobin 8.7 g/dL (12.0-16.0); Mean Corpuscular HGB Conc 31.8 g/dL (29.9-35.2); Mean Corpuscular Hemoglobin 27.2 pg (26.7-34.0); Mean Corpuscular Volume 85.6 fL (81.0-99.0); Platelet Count 321 10^3/uL (150-450); Red Blood Count 3.20 10^6/uL (4.20-5.40); White Blood Count 18.0 10^3/uL (4.0-11.0)
[2025-02-16 04:07] LABS: Glucose Urine UA NEGATIVE (NEGATIVE)
[2025-02-16 04:14] LABS: Cast Seen? NONE SEEN #/LPF (NONE SEEN); Crystals Seen? None Seen #/HPF (None Seen); Urine Culture Indicated YES-FRMC
[2025-02-16 04:15] LABS: Anion Gap 11.8; Blood Urea Nitrogen 14.0 mg/dL (7.0-18.0); Calcium 8.9 mg/dL (8.5-10.1); Carbon Dioxide 27.6 mmol/L (21.0-32.0); Chloride 101 mmol/L (98-107); Estimated GFR (African America >60 (>=60 mL/min/1.73m^2); Estimated GFR (Non-African Ame >60 (>=60 mL/min/1.73m^2); Glucose 171 mg/dL (74-106); Potassium 3.4 mmol/L (3.5-5.1); Sodium 137 mmol/L (136-145)
[2025-02-16 04:24] LABS: Basophils Abs Manual 0.00 10^3/uL (0.00-0.10); Basophils Percent Manual 0.0 % (0.2-2.0); Eosinophils Absolute Manual 0.00 10^3/uL (0.00-0.70); Eosinophils Percent Manual 0.0 % (0.9-7.0); Lymphocytes Absolute Manual 1.08 10^3/uL (1.20-3.80); Lymphocytes Percent Manual 6.0 % (20.5-60.0); Monocytes Absolute Manual 1.44 10^3/uL (0.30-0.80); Monocytes Percent Manual 8.0 % (1.7-12.0); Segmented Neut Absolute Manual 15.48 10^3/uL (1.4-6.5); Segmented Neutrophils % Manual 86.0 (43.0-75.0)
[2025-02-16 04:25] LABS: Macrocytosis 1+; Poikilocytosis 2+
[2025-02-16 04:26] LABS: Stomatocytes 1+
[2025-02-16] MEDS: CIPROFLOXACIN IN 5 % DEXTROSE 400 MG/200 ML PREMIX 200 MG IV (04:35)
[2025-02-16 04:45] LABS: Lactate/Lactic Acid 1.6 mmol/L (0.4-2.0)
[2025-02-16 05:04] LABS: Cannabinoid Screen Urine NEGATIVE (NEGATIVE); Methamphetamines Screen Urine NEGATIVE (NEGATIVE); Tricyclic Antidepressant Urine NEGATIVE (NEGATIVE)
--- OUTSIDE RECORDS SUMMARY | 2025-02-16 05:14 | XMS_ITS | CCD ---
Author Organization [facility] Care Team Providers Care Foot Orthopedist Name Role Phone Zach Grimaldo Unavailable Unavailable Roberto Carlos, Luke Unavailable Unavailable Roberto Carlos, Luke Unavailable Unavailable Angelita, Vahid Unavailable Unavailable Angelita, Vahid Unavailable Unavailable Angelita, Vahid Unavailable Unavailable Angelita, Vahid Unavailable Unavailable Angelita, Vahid Unavailable Unavailable Angelita, Vahid Unavailable Unavailable Angelita, Vahid Unavailable Unavailable Angelita, Vahid Unavailable Unavailable Ender Amin Unavailable [phone] Natalia Amin Primary Care Physician [phone] Angelita, Vahid Unavailable Unavailable Angelita, Vahid Primary Care Provider Angelita, Vahid M Primary Care Provider [phone] DEION FRITZ Attending Unavailable Angelita, Vahid M Primary Care Provider Angelita, Vahid Primary Care Provider Angelita O AND M SUPERVISOR - STUDENT COUNSELLOR, Vahid M Primary Care Provider Unavailable Primary Care Provider Unavailabl e Angelita O AND M SUPERVISOR - STUDENT COUNSELLOR, Vahid M Primary Care Provider Angelita STUDENT COUNSELLOR, Vahid Unavailable Osmar Rodriguez MD Primary Care Provider Angelita STUDENT COUNSELLOR, Vahid Primary Care Provider Angelita O AND M SUPERVISOR - STUDENT COUNSELLOR, Vahid M Primary Care Provider Angelita STUDENT COUNSELLOR, Vahid Primary Care Provider DR ERMA GUERRERO Primary Care Unavailable AILYN, DR GORDO Saeed Admitting Unavailable AILYN, DR GORDO Saeed Consulting Unavailable DR GORDO ROBERTSON Attending Unavailable WILY FAJARDO Consulting Unavailable NIA GALLEGOS Consulting Unavailable TAWANNA VICENTE Consulting Unavailable Eber Mcnair Consulting Unavailable Osmar Rodriguez MD Primary Care Provider [phone] Angelita [facility], Vahid Primary Care Provider ANGELITA, VAHID Primary Care Unavailable ANGELITA, VAHID Referring Unavailable CORRINE CHERY Attending Unavailable ANGELITA, VAHID Primary Care Unavailable JENNIFER, OSMAR Referring Unavailable ALETHA VERDE Attending Unavailable PEDRITO PICKETT Y Admitting Unavailable PICKETT PEDRITO Y Attending Unavailable ANGELITA, VAHID Primary Care Unavailable ANGELITA, VAHID Primary Care Unavailable ANGELITA, VAHID Primary Care Unavailable SELF, SELF Referring Unavailable CORRINE CHERY Attending Unavailable Osmar Rodriguez MD Primary Care Provider [phone] Osmar Rodriguez MD Primary Care Provider BRIANAMatilde MARIEE Admitting Unavailable JOI JACOBSEN Referring Unavailable [facility] Primary Care Unavailable WINDY KUMARI Consulting Unavail able ABRAHAM BELTRAN Attending Unavailable DO Carlo Grimaldo Emergency Provider [phone] NON STAFF Primary Care Provider UnavailMD Nabila [...] Provider Unavailable MD Americo Gomez Other Provider MARION Joyce Other Provider MD Bjorn Ramsey Other Provider MD Artur Guo Other Provider Osmar Rodriguez MD Primary Care Provider GERBER BASHIR Attending Unavailable IACOB, OSMAR Primary [...] OSMAR Attending Unavailable IACOB, OSMAR Admitting Unavailable GOROD COLMENARES Consulting Unavailable IACOB, OSMAR Attending Unavailable [...] of OnsetReaction(s) Facility (20 sources)azithromycin; 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: [azithromycin]Drug Ajkpdru82-31-2770 [facility] Repository (20 sources)cefaclor; 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: [cefaclor]Drug Hdsxlur59-31-8170[facility]egyenSam[facility] (20 sources)codeine; 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: [Codeine]Drug Skkfbpm82-14-7065Uzdiz (See Comments), [facility] ([facility] sources)cyclobenzaprine; 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: [cyclobenzaprine]Drug Allergy 43-79[facility]344[facility] (20 sources)simvastatin; Translations: [simvastatin]Drug Djeslej06-97-9859 [facility] Repository (20 sources)-No Environmental Allergies; Translations: [-No Environmental Allergies]Allergy to substance (disorder)[facility] (13 sources)-No Known Food AllergiesAllergy to substance (disorder)[facility] (20 sources)Other; Translations: [Other]Allergy to substance (disorder)Lexiscan [facility] (20 sources)Metals; Translations: [Metals]Allergy to substance (disorder)Nickel [facility] comment on above:04/14/2015 - ar (20 sources)tiZANidine; Translations: [tizanidine][facility] (20 sources)Azithromycin; Translations: [azithromycin]Drug Cohfxng19-60-4521 [facility] (20 sources)Cefaclor; Translations: [cefaclor]Drug Bumupjo44-68-5534Gllaj, Other (See Comments)[facility] (4 sources)cyclobenzaprine; Translations: [cyclobenzaprine]Drug Allergylegs [facility] (20 sources)Simvastatin; Translations: [simvastatin]Drug Htmdqvk39-53-4908 Itching, Other (See Comments)[facility] (4 sources)tiZANidine; Translations: [tizanidine]Drug AllergyLegs [facility] (20 sources)Seasonal allergy; Translations: [Seasonal allergies]Allergy to muckyumnv19-03-5197EkzpggCard[facility] Work Phone: (20 sources)nickel sulfate; Translations: [Unknown]Drug Itrxyet52-12-1950Lzrt, Other (See Comments)[place] (20 sources)regadenoson; Translations: [REGADENOSON]Drug Trmrvsw94-29-4350 [place]ness [place]Hal[place], [place] (20 sources)cyclobenzaprineDrug Pkigqkb30-74-2518Glyjd (See Comments), Agitation [facility] (14 sources)Seasonal allergyPropensity to adverse reactions to substance 66-28-2243[facility] Work Phone: (16 sources)Trazodone And NefazodonePropensity to adverse reactions to drug 35-60-2419ZbazwHdudn Health (2 sources)IodidesPropensity to adverse reactions to xghy35-91-6107YPV [facility] (1 source)CefaclorDrug Bnfhkfo87-61-9614Dcq [facility] Repository (1 source)Iodine (And Iodine Containting Drugs)Drug allergy (disorder)10-21-2019 [facility] Repository (1 source)SimvastatinDrug Kxjmbjx57-33-3530Owy [facility] Repository (8 sources)nickelDrug Fihajxf30-21-1610IozKzqdfw Health System (9 sources)levoFLOXacin; Translations: [LEVOFLOXACIN]Drug Serdugi69-24-7584 [facility] (3 sources)Environmental/SeasonalPropensity to adverse reactions to substance 90-37-6930Xxf [facility] Medications Current Medications MedicationDrug Class(es)DatesSig (Normalized)Sig (Original)*OXYGEN 1 Miscellaneous (20 sources)Start: 07-28-2018*OXYGEN 1 Miscellaneous 07/28/2018 Provider:*OXYGEN 1 Miscellaneous (1 source)Start: 07-28-2018*OXYGEN 1 Miscellaneous 07/28/2018 Provider: acetaminophen 325 mg oral tablet (13 sources)Start: 24-73-4991xtxg 1 tablet by mouth every four hours as needed for pain and fever and naoobpxh697 mg, oral, Every 4 hours PRN, mild pain - pain scale 1-3, temperature greater than 38 C, headaches, Temperature greater than 38.3 C, Starting on Sat12/30/24 at 2153, [Warning: Total Acetaminophen not to exceed more than 4 grams (4000 mg) in 24 hours]Start: 85-89-3220wmssgihkeustn (TYLENOL) tablet 650 mgStart: 50-69-8417wzjnkwhcuempr (TYLENOL) tablet 650 mg Start: 07-21-2022 End: 39-68-8547sfykttlkndfym (TYLENOL) tablet 650 mgStart: 85-58-3430ecnx 650 mg by mouth every four hours as needed for pain, then take 4000 mg by mouth every twenty-four hours as needed for ggnn649 mg, Oral, EVERY 4 HOURS PRN, Pain Mild (1-3), Fever, Fever >100.5 F (38 C), Starting Sat03/18/20 at 1350 Maximum dose of acetaminophen is 4000 mg from all sources in 24 hours. Recovery(Cath)Start: 83-85-6416dzictycurydrp (TYLENOL) tablet 650 mgStart: 03-17-2020 End: 15-60-4063pnnpwaqzfutdq (TYLENOL) tablet 1,000 mgStart: 07-18-2019 acetaminophen (TYLENOL) tablet 650 mgStart: 05-27-2019 End: 39-03-1399iagnratoyhxkb (TYLENOL) tablet 1,000 mgStart: 04-22-2019 End: 43-89-2133ggesxjdgsecit (TYLENOL) tablet 1,000 mgStart: 02-23-2019 End: 63-36-0744uduhmamepfxpq (TYLENOL) tablet 1,000 mgtake 2 tablets by mouth every six hours as needed for feveracetaminophen (TYLENOL) 325 mg tablet Take 2 tablets (650 mg total) by mouth every 6 (six) hours asneeded for fever. Active acetaminophen 325 mg / oxyCODONE hydrochloride 5 mg oral tablet (20 sources)Opioid AgonistStart: 12-21-2024 End: 34-21-3278zmoo 1 tablet by mouth every six hours as needed for pain and pain and pain and painoxyCODONE-acetaminophen (Percocet) 5-325 MG tablet Indications: Pain Take 1 tablet by mouth every 6(six) hours if needed for severe pain or moderate pain 120 tablet 12/21/2024 01/20/2025 ActiveStart: 10-27-2024 End: 42-52-5945alwFVQXJF-acetaminophen (PERCOCET) 7.5-325 MG per tablet Indications: Chronic [...] 120 tablet 10/27/2024 11/26/2024 ActiveStart: 09-02-2024 End: 05-49-8556sljWXLNNU-acetaminophen (PERCOCET) 7.5-325 MG per tablet Indications: Chronic [...] all sources in 24 hours.Start: 08-12-2024 End: 55-34-1039iqej 1 tablet by mouth every twenty-four hours1 tablet, Oral, Once, 1 dose, On 08/12/24 at 1145, Maximum dose of acetaminophen is 4000 mg fromall sources in 24 hours.Start: tablet, Oral, EVERY 4 HOURS PRN, Starting on Jenn 08/06/24 at 2019, Until Discontinued, Pain Severe (7-10), Maximum dose of acetaminophen is 4000 mg from all sources in 24 hours.Start: 07-27-2024 End: 57-20-2055wtbb 1 tablet by mouth every six hours [...] 12 tablet 08/17/2024 08/20/2024 ActiveStart: 01-20-2024 End: 00-58-6294niex 2 tablets by mouth every six hoursOxycodone-Acetaminophen Discontinued 2 TAB PO Q6H January 20, 2024 12:00am January 23, 2024 3:47pm Start: 37-86-2655ngdv 1 tablet by mouth every eight hoursOxycodone-Acetaminophen Active 1 TAB PO Every 8 hours January 19, 2024 12:00amStart: 07-10-2022 End: 09-83-8264qgvBGCHWS-acetaminophen (PERCOCET) 5-325 MG per tablet Indications: Chronic right hip pain , Sacralpain , Lumbar back pain with radiculopathy affecting right lower extremity , Chronic left hip pain Take 1 tablet by mouth every 6 hours as needed for Pain for up to 7 days. Ok to Fill today. PDMP reviewed. Max Daily Amount: 4 tablets 28 tablet 0 08/13/2022 08/20/2022 ActiveStart: 42-96-7843mqzt 1 tablet by mouth every eight hours for painoxyCODONE-acetaminophen 5-325 MG per tablet take 1 tablet by mouth every 8 hours if needed for painfor up to 30 DAYS 0 04/14/2022 ActiveStart: 12-18-2021 End: 27-26-4487nazd 1 tablet by mouth every eight hours [...] tablet 0 12/18/2021 01/17/2022 ActiveStart: 06-20-2021 End: 70-35-1555rteGGBCRP-acetaminophen (PERCOCET) 5-325 MG per tablet Indications: Chronic right hip pain , Lumbarback pain with radiculopathy affecting right lower extremity Take 1 tablet by mouth every 6 hours as needed for Pain for up to 7 days. Intended supply: 7 days. Take lowest dose possible to manage pain 28 tablet 0 06/20/2021 06/27/2021 ActiveStart: 04-06-2021 End: 23-50-4011ulaKOKGWV-acetaminophen (PERCOCET) 5-325 MG per tablet Indications: Chronic right hip pain , Fall, initial encounter , Right hip pain Take 1 tablet by mouth every 6 hours as needed for Pain for up to7 days. Intended supply: 7 days. Take lowest dose possible to manage pain 28 tablet 0 04/06/2021 04/13/2021 ActiveStart: 05-08-1675gxoRRJMJA-acetaminophen (PERCOCET) 5-325 MG per tablet 1 tabletStart: 01-12-2021 End: 11-95-2909hpmWEPSBR-acetaminophen (PERCOCET) 5-325 MG per tablet Indications: Multiple contusions Take 1 tablet by mouth every 6 hours as needed for Pain for up to 3 days. Intended supply: 3 days. Take lowest dose possible to manage pain 12 tablet 0 01/12/2021 01/15/2021 ActiveStart: 12-04-2020 End: 63-05-7361jduFCIMXX-acetaminophen (PERCOCET) 5-325 MG per tablet Indications: Pelvic pain Take 1 tablet by mouth every 6 hours as needed for Pain for up to 3 days. Intended supply: 3 days. Take lowest dose possible to manage pain 12 tablet 0 12/04/2020 12/07/2020 ActiveStart: 75-67-6216trwOUDOPZ- acetaminophen (PERCOCET) tablet 5-325 mg (2 tablet STARTER PACK)Start: 04-05-2020 End: 69-21-5203bqpx 1 tablet by mouth every six hours [...] tablet 0 04/05/2020 04/08/2020 ActiveStart: 03-21-2020 End: 19-90-7647zqkMXKUHV-acetaminophen (PERCOCET) 5-325 MG per tablet 1 tablet Start: 02-12-2020 End: 26-21-0818myrl 1 tablet by mouth every four hours [...] tablet 0 02/12/2020 02/15/2020 ActiveStart: 10-06-2019 End: 32-99-4093apgb 1 tablet by mouth every six hours as needed for pain oxyCODONE-acetaminophen (PERCOCET) 5-325 MG per tablet Indications: Chronic bilateral low back painwith bilateral sciatica Take 1 tablet by mouth every 6 hours as needed for Pain for up to 3 days. 10 tablet 0 10/06/2019 10/09/2019 ActiveStart: 10-06-2019 End: 61-99-6604srjYBFJGD-acetaminophen (PERCOCET) 5-325 MG per tablet 1 tablet Start: 07-30-2019 End: 37-62-6974Ikgxuwyv 5-325 MG Oral Tablet 09/09/2019 - 09/15/2019 Provider: Vahid Nagy CNPStart: 02-19-2019 End: 16-16-2722fejNSWJRC-Acetaminophen 5-325 MG Oral Tablet 02/19/2019 - 03/12/2019 Provider: Vahid Nagy CNPStart: 01-13-2019 End: 98-69-2080oeoEFOMOF-acetaminophen (PERCOCET) 5-325 MG per tablet 1 tablet Start: 49-70-8878cnkKHKQPQ-Acetaminophen 7.5-325MG Oral Tablet 06/27/2018 Provider: Vahid Nagy CNPStart: 04-29-2018 End: 63-41-3595zcjAJNFPH-Acetaminophen 7.5-325MG Oral Tablet 05/30/2018 - 06/27/2018 Provider: Vahid Nagy CNPStart: 04-26-2018 End: 36-17-0930ttmYPOUDV-Acetaminophen 7.5-325 MG OR TABS 04/26/2018 - 04/26/2018 Provider: Parker ProviderStart: 39-12-4429tarn 1 tablet by mouth every eight hours as needed for painoxycodone-acetaminophen 7.5-325 mg oral tablet 03/26/2018 take 1 tablet (7.5/325mg) by mouth every 8 hours as needed for severe chronic lumbar pain (M79.606/M54.16)Start: 03-26-2018 End: 39-39-9677teuZMMVGE-Acetaminophen 7.5-325 MG OR TABS 03/26/2018 - 03/26/2018 Provider:Start: 02-24-2018 End: 11-21-7189xdtCVDQMR-Acetaminophen 7.5-325 MG OR TABS 02/24/2018 - 02/24/2018 Provider:Start: 60-33-4349evqy 1 tablet by mouth every eight hours as needed for painoxycodone-acetaminophen 7.5-325 mg oral tablet 02/24/2018 take 1 tablet (7.5/325mg) by mouth every 8 hours as needed for severe chronic lumbar pain (M79.606/M54.16)Start: 01-20-2018 End: 98-59-5255xgaVACZGU-Acetaminophen 7.5-325 MG OR TABS 01/20/2018 - 01/20/2018 Provider:Start: 12-27-2017 End: 48-60-4141brdJJARYE-Acetaminophen 5-325 MG OR TABS 12/27/2017 - 12/27/2017 Provider:Start: 19-90-8910fztg 1 tablet by mouth every eight hours as needed for painoxycodone-acetaminophen 5-325 mg oral tablet 12/27/2017 take 1 tablet by oral route every 8 hours asneeded for modertae to severe back pain for 30 day supply (dx M79.606, M54.16)Start: 11-26-2017 End: 49-26-4814tasXXNWLG-Acetaminophen 5-325 MG OR TABS 11/26/2017 - 11/26/2017 Provider:Start: 01-45-8325fcso 1 tablet by mouth every eight hours as needed for painoxycodone-acetaminophen 5-325 mg oral tablet 11/26/2017 take 1 tablet by oral route every 8 hours asneeded for modertae to severe back pain for 30 day supply (dx M79.606, M54.16)Start: 11-04-2017 End: 98-03-1398yyvJDSRHC-Acetaminophen 5-325 MG OR TABS 11/04/2017 - 11/04/2017 Provider:Start: 10-22-2017 End: 33-08-3908lxtHJSMDN-Acetaminophen 5-325 MG OR TABS 10/22/2017 - 10/22/2017 Provider:Start: 16-86-7409bgik 1 tablet by mouth every eight hours as needed for painoxycodone-acetaminophen 5-325 mg oral tablet 10/22/2017 take 1 tablet by oral route every 8 hours asneeded for modertae to severe back pain (dx M79.606, M54.16)Start: 04-14-2015 End: 10-10-1549ywjLOXVBO-Acetaminophen 7.5-325 MG OR TABS 04/14/2015 - 04/14/2015 Provider:Start: 04-14-2015 End: 23-09-0568ckue 1 tablet by mouth every eight hours as neededoxycodone- acetaminophen 7.5-325 mg oral tablet 04/14/2015 12/14/2016 take 1 tablet by oral route every 8 hours as neededStart: 03-11-2015 End: 76-61-6217coySFZPYK-Acetaminophen 7.5-325 MG OR TABS 03/11/2015 - 03/11/2015 Provider:Start: 02-10-2015 End: 95-04-3929gffFNIEJL-Acetaminophen 7.5-325 MG OR TABS 02/10/2015 - 02/10/2015 Provider: End: 80-32-0576ydwd 1 tablet by mouth every six hours [...] INPATIENT/ED BronchodilatorClinical Practice Guidelines? YesStart: 08-06-2024 End: 24-73-6596awmf 1 dose by inhalation four times daily1 Dose, Inhalation, 4 TIMES DAILY RESP, First dose on Jenn 08/06/24 at 1600, Until Discontinued, Initiate RT Bronchodilator Protocol: Yes - Inpatient ProtocolStart: 10-23-2022 ipratropium-albuteroL (DUONEB) 0.5 mg-3 mg(2.5 mg base)/3 mL nebulizer Indications: COPD exacerbation ([facility]) Inhale 3 mL by nebulization 3 (three) times a day as needed for wheezing or shortness of breath. 3 mL nebulization every 8 hours x7 days, then every 8 hours as needed for cough, shortnessof breath, and or wheezing 240 mL 2 10/23/2022 ActiveStart: 81-07-9517nmoaqxzonjj- albuterol (DUONEB) nebulizer solution 1 ampuleStart: 10-06-2019 End: 13-85-1104azkcbcqdxmc-albuterol (DUONEB) nebulizer solution 1 ampuleStart: 07-18-2019 End: 93-70-9142mtrobwjfont-albuterol (DUONEB) nebulizer solution 1 ampuleStart: 04-21-2019 End: 65-79-7780csrgkkaducp-albuterol (DUONEB) nebulizer solution 1 ampule albuterol sulfate HFA 108 (90 Base) MCG/ACT inhaler 2 puff (1 source)Start: 37-95-1431nazepmezh sulfate HFA 108 (90 Base) MCG/ACT inhaler 2 puff1 ml alirocumab 75 mg/ml auto-injector (12 sources)PCSK9 InhibitorStart: 45-07-9039vlfuzqhnqi (PRALUENT) 75 MG/ML SOAJ injection pen Indications: Abnormal stress test , CAD S/P percutaneous coronary angioplasty , Essential hypertension , Mixed hyperlipidemia , Tobacco abuse counseling , PVD (peripheral vascular disease) ([facility]) , Bilateral carotid artery disease, unspecified type ([facility]) Inject 1 mL into the skin every 14 days 1.96 mL 3 02/01/2020 Activealuminum hydroxide 40 mg/ml / magnesium hydroxide 40 mg/ml / simethicone 4 mg/ml oral suspension (1 source)Start: 22-33-8900ahji 30 mL by mouth four times daily [...] the morning. Pro-stat oral lqiuid ( amino unbks-vmknshf-pyspkgpyyki) -give 30 ml po in the morning for wound care. Activetake 30 mL by mouth in the morningamino acids-protein hydrolys 17-100 gram-kcal/30 mL liquid Take 30 mL by mouth in the morning. Pro-stat oral lqiuid ( amino jdyum-rmzyfit-soqxxupeelk) -give 30 ml po in the morning for wound care. amitriptyline hydrochloride 10 mg oral tablet (1 source)Tricyclic AntidepressantStart: 65-49-3552wuen 1 tablet by mouth once dailyamitriptyline (ELAVIL) 10 MG tablet Indications: Chronic right hip pain , Chronic left hip pain , Chronic pain syndrome , Chronic diastolic congestive heart failure (HCC) Take 1 tablet by mouth nightly 90 tablet 11/16/2024 Active amLODIPine 10 mg oral tablet (20 sources)Dihydropyridine Calcium Channel BlockerStart: 88-98-0815jtsj 10 mg by mouth once daily for vcvrmhxebixy81 mg, oral, Daily, First dose on [facility] 12/31/24 at 0900, Look-alike/sound-alike medication - verify indication for use. Avoid grapefruit juice., Indications: hypertensionStart: 29-86-5115ekJIDVRnam (NORVASC) 5 MG tablet 08/19/2024 ActiveStart: 39-13-6842ugtu 1 tablet by mouth once dailyamLODIPine (NORVASC) 10 MG tablet Indications: Primary hypertension Take 1 tablet by mouth daily 90tablet 1 06/24/2024 ActiveStart: 99-80-6966lrvs 1 tablet by mouth once dailyamLODIPine (NORVASC) 10 MG tablet Indications: Primary hypertension Take 1 tablet by mouth daily 90tablet 3 01/28/2023 ActiveStart: 40-88-9899ixje 1 tablet by mouth once dailyamLODIPine (NORVASC) 10 MG tablet Indications: Primary hypertension take 1 tablet by mouth once daily 90 tablet 0 07/26/2022 ActiveStart: 41-82-9572zhlk 1 tablet by mouth once dailyamLODIPine (NORVASC) 10 MG tablet Indications: Primary hypertension take 1 tablet by mouth once daily 90 tablet 0 05/04/2022 ActiveStart: 36-45-8216ynnr 1 tablet by mouth once dailyamLODIPine (NORVASC) 10 MG tablet Take 1 tablet by mouth daily 30 tablet 0 12/26/2021 ActiveStart: 02-20-2021 End: 50-37-0818wrsj 1 tablet by mouth once dailyamLODIPine (NORVASC) 5 MG tablet Take 5 mg by mouth daily 0 02/20/2021 06/22/2021 Discontinued (LIST CLEANUP) Start: 07-26-2019 End: 01-78-9178cphc 1 tablet by mouth once dailyamLODIPine (NORVASC) 10 MG tablet Take 1 tablet by mouth daily 30 tablet 3 07/26/2019 ActiveStart: 07-21-2019 End: 56-45-9006ieys 1 tablet by mouth once dailyamLODIPine (NORVASC) 10 MG tablet Take 1 tablet by mouth daily 30 tablet 3 07/26/2019 03/17/2020 Dis continued (LIST CLEANUP)Start: 07-20-2019 End: 24-23-3901ctCNRHUduc (NORVASC) tablet 5 mgStart: 05-04-2019 End: 71-11-6019dsqn 1 tablet by mouth once dailyamLODIPine (NORVASC) 2.5 MG tablet Take 1 tablet by mouth daily 30 tablet 3 05/04/2019 07/25/2019 Di scontinued (Stop Taking at Discharge)amoxicillin 500 mg oral tablet (1 source)Penicillin-class AntibacterialStart: 43-41-6223Ulrdygxndsr 500 MG Oral Tablet 03/03/2019 Provider: Elena Malik CNPamoxicillin 875 mg / clavulanate 125 mg oral tablet (20 sources)Penicillin-class AntibacterialStart: 08-10-2024 End: 09-67-5394ahor 1 tablet by mouth twice daily1 tablet, Oral, 2 TIMES DAILY, 28 doses, First dose on Sat08/12/24 at 2100, Last dose on Sat08/26/24 at 0900, Antimicrobial Indications: Skin and Soft Tissue Infection, Skin duration of therapy: Other, Other Skin and Soft Tissue Infection Duration: 14Start: 79-84-9772Nrjplspme 500-125 MG Oral Tablet 04/12/2020 Provider: Vahid Nagy CNP Start: 78-22-3323Osadelsbx 500-125 MG Oral Tablet 04/12/2020 Provider: Vahid Nagy CNPStart: 09-09-2019 End: 19-60-9659Rjjygrpdm 500-125 MG Oral Tablet 09/09/2019 - 09/23/2019 Provider: Vahid Nagy CNPStart: 13-75-8500Tmjnyqvpv 500-125MG Oral Tablet 10/30/2018 Provider: Vahid Nagy CNPStart: 77-19-7116skmj 1 tablet by mouth every twelve hoursAugmentin 875-125 mg oral tablet 02/10/2018 take 1 tablet by oral route every 12 hours x 10 daysStart: 02-10-2018 End: 11-60-1399Mkpxroikd 875-125 MG OR TABS 02/10/2018 - 02/10/2018 Provider: Start: 02-10-2018 End: 45-34-7510Uqyhsoxcx 875-125MG OR TABS 02/10/2018 - 02/10/2018 Provider: apixaban 5 mg oral tablet (14 sources)Factor Xa InhibitorStart: 94-61-4692huvk 5 mg by mouth twice daily5 mg, oral, 2 times daily, First dose on Sat12/30/24 at 2215, Indication: Nonvalvular Atrial Fibrillation (NVAF)Start: 83-67-2755rkrh 0.5 tablet by mouth twice dailyapixaban (ELIQUIS) 5 MG TABS tablet Take 0.5 tablets by mouth 2 times daily 90 tablet 1 09/02/2024 ActiveStart: 25-15-9037fqmz 5 mg by mouth once daily5 mg, Oral, DAILY, First dose on Sat08/13/24 at 2200, Until Discontinued, Indication of Use: A Fib/A Flutter, ANTICOAGULANTStart: 93-61-8834blha 1 tablet by mouth twice dailyApixaban (Eliquis) 5 mg tablet Active 5 MG PO Twice daily 60 January 23, 2024 12:00amascorbic acid 500 mg chewable tablet (2 sources)Vitamin CStart: 09-25-9381kpfo 1 tablet by mouth twice dailyascorbic acid (VITAMIN C) 500 MG tablet Take 1 tablet by mouth 2 times daily 30 tablet 3 5ActiveStart: 72-27-2642qhkc 1 tablet by mouth twice dailyascorbic acid (VITAMIN C) 500 MG tablet Take 1 tablet by mouth 2 times daily for 7 days 14 tablet ActiveAspir-81 Oral Tablet Delayed Release (4 sources)Start: 08-44-7138Uzjox-81 Oral Tablet Delayed Release 04/29/2018 Provider:Aspir-81 Oral Tablet Delayed Release (1 source)Start: 49-15-6355Iykyy-81 Oral Tablet Delayed Release 04/29/2018 Provider:aspirin 81 mg chewable tablet (20 sources)Platelet Aggregation Inhibitor, Nonsteroidal Anti-inflammatory Drug Start: 43-03-8251Adkykmm (Adult Low Dose Aspirin) 81 mg tablet,delayed release (DR/EC) Active 81 MG PO Daily 2023 12:00amStart: 67-93-1024brwh 81 mg by mouth once daily81 mg, oral, Daily, First dose on Jenn 12/31/24 at 0900 Start: 33-56-6989jkal 1 tablet by mouth once dailyaspirin EC 81 MG EC tablet Indications: Primary hypertension Take 1 tablet by mouth daily 30 tablet3 07/10/2022 ActiveStart: 45-66-4791laftnea 81 MG Chew Tab chewable tablet Chew 1 tablet daily. 0 06/22/2021 ActiveStart: 37-12-4518mwmfbpc chewable tablet 81 mg Start: 72-20-5134xhuqoza chewable tablet 81 mgStart: 04-26-2018 End: 07-92-0941Adkohvp 81 81 MG OR TBEC 04/26/2018 - 04/26/2018 Provider: Parker ProviderStart: 02-24-2018 End: 42-87-3801enri 1 tablet by mouth once dailyaspirin EC 81 MG EC tablet Take 1 tablet by mouth daily 30 tablet 3 03/19/2020 ActiveAspirin Adult Low Dose 81 MG Oral Tablet Delayed Release (4 sources)Start: 03-21-2020 End: 59-88-9315Qheiunh Adult Low Dose 81 MG Oral Tablet Delayed Release 03/21/2020 - 03/16/2021 Provider: Vahid Nagy CNPStart: 03-21-2020 End: 58-61-1991Nfeljlk Adult Low Dose 81 MG Oral Tablet Delayed Release 03/21/2020 - 04/12/2020 Provider:azelastine hydrochloride 0.137 mg/actuat / fluticasone propionate 0.05 mg/actuat metered dose nasalspray (1 source)Corticosteroid, Histamine-1 Receptor AntagonistStart: 08-13-2023 Azelastine-Fluticasone 137-50 MCG/ACT SUSP Indications: Allergic rhinitis, unspecified seasonality,unspecified trigger 1 each by Nasal route in the morning and at bedtime 23 g 08/13/2023 Activebenzonatate 100 mg oral capsule (20 sources)Non-narcotic AntitussiveStart: 22-56-5278Ktmut: 26-52-7436gewz 200 mg by mouth three times mg, Oral, 3 TIMES DAILY, First dose on [facility] 08/13/24 at 0900, Until DiscontinuedStart: 19-95-8135Kqthr: 04-06-2024 End: 69-67-4466ixwayaoettt (TESSALON PERLES) 200 mg capsule Take 1 capsule (200 mg total) by mouth as needed in the morning and 1 capsule (200 mg total) as needed at noon and 1 capsule (200 mg total) as needed in the evening for cough. 04/06/2024 ActiveStart: 43-17-8411vobn 1 capsule by mouth twice daily as needed for coughbenzonatate (TESSALON) 100 MG capsule Indications: Chronic obstructive pulmonary disease, unspecified COPD type (HCC) Take 1 capsule by mouth 2 times daily as needed for Cough 30 capsule 0 08/13/2022ctiveStart: 08-13-2022 End: 19-33-8013ephq 1 capsule by mouth three times daily as needed for cough benzonatate (TESSALON) 200 MG capsule Take 1 capsule by mouth 3 times daily as needed for Cough 30 capsule 0 08/13/2022 08/20/2022 ActiveStart: 19-63-9637rjpa 1 capsule by mouth twice daily as needed for coughbenzonatate (TESSALON) 100 MG capsule Indications: Chronic obstructive pulmonary disease, unspecified COPD type (HCC) Take 1 capsule by mouth 2 times daily as needed for Cough 30 capsule 0 07/10/2022ctiveStart: 33-81-8378jidkxczsdil (TESSALON) capsule 100 mgStart: 03-17-2021 End: 61-30-1934zqzdualuhjg (TESSALON) capsule 200 mgStart: 01-19-2020 End: 73-67-4892Krlhvwvx Perles 100 MG Oral Capsule 02/16/2020 - 03/12/2020 Provider: Vahid Nagy CNPStart: 12-21-2019 End: 68-10-9268Oxlewdby Perles 100 MG Oral Capsule 12/21/2019 - 11/16/2019 Provider: Vahid Nagy CNPStart: 12-21-2019 End: 16-46-4398Tipbksmw Perles 100 MG Oral Capsule 12/21/2019 - 11/16/2019 Provider: Vahid Nagy CNPStart: 12-21-2019 End: 58-96-6743Vjllspex Perles 100 MG Oral Capsule 12/21/2019 - 11/16/2019 Provider: Vahid Nagy CNPStart: 12-21-2019 End: 22-45-3122Jhnphkdi Perles 100 MG Oral Capsule 12/21/2019 - 11/16/2019 Provider: Vahdi Nagy CNPStart: 12-17-5685Evxxvsrx Perles 100 MG Oral Capsule 01/22/2019 Provider: Vahid Nagy CNPStart: 09-30-2018 End: 48-51-1215Wvrqusuv Perles 100MG Oral Capsule 09/30/2018 - 12/11/2018 Provider: Vahid Nagy CNPStart: 07-28-2018 End: 31-95-7139Fbojtqze Perles 100MG Oral Capsule 07/28/2018 - 08/27/2018 Provider: Vahid Nagy CNPStart: 99-04-5150dhga 1 capsule by mouth three times dailyTessalon Perles 100 mg oral capsule 03/26/2018 take 1 capsule (100 mg) by oral route 3 times per day for up to 30 daysStart: 03-26-2018 End: 15-71-7771BWLINOEI PERLES 100 mg MISC 03/26/2018 - 03/26/2018 Provider: Start: 01-27-2018 End: 72-87-9210AHRETOWU PERLES 100 mg MISC 01/27/2018 - 01/27/2018 Provider: Start: 60-75-4112rynz 1 capsule by mouth three times dailyTessalon Perles 100 mg oral capsule 01/27/2018 take 1 capsule (100 mg) by oral route 3 times per day for up to 30 daysStart: 39-10-8119kafo 1 capsule by mouth three times daily Tessalon Perles 100 mg oral capsule 12/23/2017 take 1 capsule (100 mg) by oral route 3 times per dayx 14 daysStart: 12-23-2017 End: 73-02-2483HQOTEYQC PERLES 100 mg MISC 12/23/2017 - 12/23/2017 Provider: Blood Glucose Monitoring Suppl w/Device KIT (7 sources)Start: 74-79-5999Ausge Glucose Monitoring Suppl w/Device KIT Indications: Type 2 diabetes mellitus with other specified complication, without long-term current use of insulin (HCC) 1 Device by Does not apply route Daily 1 kit 0 06/22/2021 ActiveBlood Pressure Kit (15 sources)Start: 13-62-3442Ppymq Pressure Kit 07/30/2019 Provider: Vahid Nagy CNPBlood Pressure Kit (1 source)Start: 44-72-5874Ajvat Pressure Kit 07/30/2019 Provider: Vahid Nagy CNPBlood Pressure KIT (5 sources)Start: 54-27-1174Xpjhc Pressure KIT 1 kit by Does not apply route daily 1 kit 10/18/2023 ActiveBlood Pressure Monitoring MISC (20 sources)Start: 35-67-2558Bjabj Pressure Monitoring MISC Indications: Atherosclerosis of artery of extremity with intermittent claudication (HCC) To monitor blood pressure as needed. Please order device that is covered by insu albert. 1 kit 0 07/25/2019 SuspendedStart: 30-89-6357Fcxvk [facility] Indications: Atherosclerosis of artery of extremity with intermittent claudication (HCC) To monitor blood pressure as needed. Please order device that is covered by insurance. 1 kit 0 07/25/2019 ActiveStart: 06-28-2014 End: 66-73-5044Arscv Pressure [facility] Indications: Atherosclerosis of artery of extremity with intermittent claudication (HCC) To monitor blood pressure as needed. Please order device that is covered by insurance. 1 kit 0 06/28/2014 07/25/2019 Discontinued (REORDER)Start: 91-95-5915Qklcx Pressure [facility] Indications: Atherosclerosis of artery of extremity with intermittent claudication (HCC) To monitor blood pressure as needed. Please order device that is covered by insurance. 1 kit 0 06/28/2014 Yrejjx620 actuat budesonide 0.18 mg/actuat dry powder inhaler (6 sources)CorticosteroidStart: 38-22-5876kqhq 2 puff(s) by inhalation in the morningbudesonide (PULMICORT FLEXHALER) 180 MCG/ACT AEPB inhaler Indications: Chronic obstructive pulmonary disease, unspecified COPD type (HCC) Inhale 2 puffs into the lungs in the morning and 2 puffs in the evening. 1 each 5 12/22/2021 ActiveStart: 05-10-2021 End: 23-11-4079glml 2 puff(s) by inhalation twice dailybudesonide (PULMICORT FLEXHALER) 180 MCG/ACT AEPB inhaler Inhale 2 puffs into the lungs 2 times daily 1 each 2 05/10/2021 06/22/2021 Discontinued (LIST CLEANUP)Start: 36-89-3418428 mcg (0.25 mg), Nebulization, 2 TIMES DAILY, First dose on [facility] 03/17/20 at 2100 Substituted for Beclomethasone (QVAR).Calcium (12 sources)Phosphate Binder, CalciumStart: 73-38-3741Wyhuyjt 600MG Oral Tablet 04/29/2018 Provider:Start: 08-16-2017 End: 41-34-9543NYQBPTF 600 600 mg calcium(1,500 MG) MISC 08/16/2017 - 08/16/2017 Provider:carisoprodol 350 mg oral tablet (20 sources)Muscle RelaxantStart: 04-29-2018 End: 42-80-8397Ldcdpjpuzris 350MG Oral Tablet 05/27/2018 Provider: Vahid Nagy CNPStart: 12-12-2017 End: 20-91-9682Nyufptwdtfnf 350MG OR TABS 12/12/2017 - 12/12/2017 Provider: Start: 12-09-2017 End: 31-39-2128Nemfjpcdpwtr 250 MG OR TABS 12/09/2017 - 12/09/2017 Provider: carvedilol 12.5 mg oral tablet (10 sources)alpha-Adrenergic Bella, beta-Adrenergic BlockerStart: 02-06-2024 take 12.5 mg by mouth twice daily at jpgnglbe45.5 mg, oral, 2 times daily with meals, [...] ActivecefTRIAXone 1000 mg injection (2 sources)Cephalosporin AntibacterialStart: 97-76-2681tmhj 1000 mg intravenously every twenty-four hours1,000 mg, [...] oral tablet (3 sources)Cephalosporin AntibacterialStart: 01-01-2025 End: 61-58-4662gyvn 2 tablets by mouth in the morning, then take 2 tablets by mouth at bedtimeceFUROxime (CEFTIN) 250 mg tablet Take 2 tablets (500 mg total) by mouth in the morning and 2 tablets (500 mg total) before bedtime. Do all this for 3 days. 01/01/2025 01/04/2025 ActiveStart: 07-16-2024 End: 74-36-7412xzsj 1 tablet by mouth in the morning, then take 1 tablet by mouth at bedtimeceFUROxime (CEFTIN) 500 mg tablet Take 1 tablet (500 mg total) by mouth in the morning and 1 tablet(500 mg total) before bedtime. Do all this for 7 days. 14 tablet 07/16/2024 07/23/2024 Yjzctz13 hr chlorpheniramine polistirex 1.6 mg/ml / HYDROcodone polistirex 2 mg/ml extended release suspen ryan (3 sources)Histamine-1 Receptor Antagonist, Opioid AgonistStart: 03-13-2020 End: 19-76-2325szzg 5 mL by mouth every twelve hours as needed for cough HYDROcodone-chlorpheniramine (TUSSIONEX PENNKINETIC ER) 10-8 MG/5ML SUER Indications: Bronchitis Take 5 mLs by mouth every 12 hours as needed (cough) for up to 3 days. 30 mL 0 03/13/2020 03/16/2020 ActiveStart: 03-13-2020 End: 38-67-1402QJYOBggmhyu-chlorpheniramine (TUSSIONEX) 10-8 MG/5ML oral suspension 5 mLStart: 04-21-2019 End: 69-57-7209uvvhmxxqaff-chlorpheniramine (TUSSIONEX) 10-8 MG/5ML oral suspension 5 mLcholecalciferol 0.025 mg oral tablet (20 sources)Vitamin DStart: 52,000 Units, oral, Daily, First dose on [facility] 12/31/24 at 1515, 1000 units = 25 mcgStart: 04-29-2018 End: 00-50-8172Esmemjy D3 400UNIT Oral Tablet 04/29/2018 - 04/12/2020 Provider: Start: 40-12-6777Fuusxca D3 400UNIT Oral Tablet 04/29/2018 Provider:Start: 89-10-9770bxdx 1 capsule by mouth twice dailyVitamin D3 400 unit oral capsule 08/16/2017 take 1 capsule by oral route twice dailycholecalciferol, vitamin D3, 2,000 units tablet Take by mouth in the morning. Activecromolyn sodium 40 mg/ml ophthalmic solution (4 sources)Mast Cell StabilizerStart: 77-43-4266Qvwilcpw Sodium 4% Ophthalmic Solution 07/28/2018 Provider: Vahid Nagy CNPdextromethorphan hydrobromide 1 mg/ml / guaiFENesin 20 mg/ml oral solution (2 sources)Uncompetitive Q-kcbvpe-F-aspartate Receptor Antagonist, Sigma-1 AgonistStart: 11-04-2023 End: 39-40-6589Jregmohyazrcjjwx-guaiFENesin (ROBITUSSIN DM) 5-100 MG/5ML LIQD liquid Take 5 mLs by mouth every 4 hours as needed for Cough 120 mL 11/04/2023 11/14/2023 ActiveStart: 46-00-3454udztDAUeorl-dextromethorphan (ROBITUSSIN DM) 100-10 MG/5ML syrup 5 mLdiphenhydrAMINE hydrochloride 25 mg oral capsule (2 sources)Histamine-1 Receptor AntagonistStart: 26-49-6408iuyr 1 capsule by mouth every six hours as neededdiphenhydrAMINE (BENADRYL) 25 mg capsule Take 1 capsule (25 mg total) by mouth every 6 (six) hours as needed for itching. 30 capsule 12/11/2024 Activedocusate sodium 100 mg oral capsule (11 sources)Start: 02-06-2024 End: 66-69-0565zyizsbet sodium (COLACE) 100 mg capsule Take 1 capsule (100 mg total) by mouth as needed in the morning and 1 capsule (100 mg total) as needed in the evening for constipation. 02/06/2024 Activedocusate sodium 50 mg / sennosides, long-term 8.6 mg oral tablet (1 source)Start: 95-60-1845jmjn 1 tablet by mouth every twelve hours as needed for constipation1 tablet, oral, Every 12 hours PRN, constipation, Starting on Sat12/30/24 at 2153doxycycline hyclate 100 mg oral capsule (6 sources)Tetracycline-class DrugStart: 12-30-2024 End: 26-30-1322lobd 1 capsule by mouth in the morning, then take 1 capsule by mouth at bedtimedoxycycline (VIBRAMYCIN) 100 mg capsule Take 1 capsule (100 mg total) by mouth in the morning and 1capsule (100 mg total) before bedtime. Do all this for 3 days. 01/01/2025 01/04/2025 ActiveStart: 07-16-2024 End: 93-78-2772gbxm 1 tablet by mouth in the morning, then take 1 tablet by mouth at bedtimedoxycycline (VIBRA-TABS) 100 mg tablet Take 1 tablet (100 mg total) by mouth in the morning and 1 tablet (100 mg total) before bedtime. Do all this for 7 days. 14 tablet 07/16/2024 07/23/2024 ActiveStart: 08-07-2022 End: 22-72-4246nkjx 1 tablet by mouth twice dailydoxycycline hyclate (VIBRA- TABS) 100 MG tablet Indications: Bronchitis , Hypoxia Take 1 tablet by mouth 2 times daily for 10 days 20 tablet 0 08/07/2022 08/17/2022 ActiveStart: 03-19-2021 End: 09-76-7594jzzk 1 tablet by mouth twice dailydoxycycline hyclate (VIBRA- TABS) 100 MG tablet Take 1 tablet by mouth 2 times daily for 10 days 20 tablet 0 03/19/2021 03/29/2021 ActiveElastic Bandages & Supports (JOBST KNEE HIGH COMPRESSION SM) MISC (3 sources)Start: 23-65-5728Dmofuhe Bandages & Supports (JOBST KNEE HIGH COMPRESSION ) [facility] Indications: Leg edema 1 eachby Does not apply route daily as needed (Leg swelling) 2 each 0 03/23/2021 Activeempagliflozin 10 mg oral tablet (3 sources)Sodium-Glucose Cotransporter 2 InhibitorStart: 82-05-4113nhav 1 tablet by mouth once dailyempagliflozin (JARDIANCE) 10 MG tablet Take 1 tablet by mouth daily 08/18/2024 ActiveStart: 48-58-1274lweg 1 tablet by mouth once dailyempagliflozin (JARDIANCE) 10 MG tablet Take 1 tablet by mouth daily 08/18/2024 ActiveStart: 46-35-770587 mg, Oral, DAILY, First dose on 08/15/24 at 0900, Until Discontinued, Indication of Use: Type 2 diabetes, Heart Failure (preserved EF), Substituted for dapagliflozin (FARXIGA). Note: Discontinuation of therapy 3 days prior to surgery or major procedures is recommended given the risk for euglycemic diabetic ketoacidosis.0.3 ml enoxaparin sodium 100 mg/ml prefilled syringe (4 sources)Low Molecular Weight HeparinStart: 47-78-3846iwrmdaoaod (LOVENOX) injection 30 mgStart: 13-35-2021hzrnzqyilf (LOVENOX) injection 40 mgStart: 77-60-6698xcfeij 40 mg by subcutaneous injection once daily40 mg, Subcutaneous, DAILY, First dose on 07/18/19 at 0900Start: 97-37-3731tpwcpb 40 mg by subcutaneous injection once daily40 mg, Subcutaneous, DAILY, First dose on 04/22/19 at 0900ergocalciferol 1.25 mg oral capsule (7 sources)Provitamin D2 CompoundStart: 37-76-9019xjim 1 capsule by mouth every weekErgocalciferol (VITAMIN D) 51983 units CAPS Take 50,000 Units by mouth once a week 5 capsule 3 10/31/2024 ActiveStart: 10-22-2022 End: 08-50-5501knaj 01459 [IU] by mouth every week50,000 Units, Oral, WEEKLY, First dose on 08/16/24 at 1700, Until DiscontinuedStart: 94-61-5398wdis 1 capsule by mouth every weekvitamin D (ERGOCALCIFEROL) 1.25 MG (29984 UT) CAPS capsule Take 1 capsule by mouth once a week 12 capsule 0 07/30/2022 Active escitalopram 10 mg oral tablet (8 sources)Serotonin Reuptake InhibitorStart: 08-07-2022 End: 53-76-3907ymti 1 tablet by mouth once dailyescitalopram (LEXAPRO) 10 MG tablet Indications: Depression, unspecified depression type Take 1 tablet by mouth daily 30 tablet 0 08/07/2022 ActiveStart: 97-67-6934orib 1 tablet by mouth once dailyescitalopram (LEXAPRO) 5 MG tablet Indications: Depression, unspecified depression type take 1 tablet by mouth once daily 90 tablet 0 05/28/2022 Activeferrous sulfate 325 mg oral tablet (8 sources)Start: 07-81-2068mfin 325 mg by mouth once cwotk098 mg, oral, Daily, First dose on Sat12/31/24 at 1515, Give ferrous sulfate 2 hours before or 4 gracie rs after antacids.Start: 03-56-6395ibrs 1 tablet by mouth once daily at breakfastferrous sulfate (IRON 325) 325 (65 Fe) MG tablet Take 1 tablet by mouth daily (with breakfast) 08/18/2024 ActiveStart: 17-65-2301bxhv 1 tablet by mouth once daily at breakfastferrous sulfate (IRON 325) 325 (65 Fe) MG tablet Take 1 tablet by mouth daily (with breakfast) 08/18/2024 ActiveStart: 55-43-0920aleu 1 dose by mouth every four wluqs088 mg, Oral, DAILY WITH BREAKFAST, First dose on 08/16/24 at 1200, Until Discontinued, Separateiron & levothyroxine by 4 hours Start: 91-57-4462tndt 1 tablet by mouth once daily at breakfastFEROSUL 325 (65 Fe) MG tablet Indications: Anemia, unspecified type Take 1 tablet by mouth daily (with breakfast) 90 tablet 1 04/12/2023 Activefluconazole 150 mg oral tablet (20 sources)Azole AntifungalStart: 01-67-7052Rbxfpvzn 150 MG Oral Tablet 04/12/2020 Provider: Vahid Nagy CNPStart: 63-28-1073Zjsnsafw 150 MG Oral Tablet 04/12/2020 Provider: Vahid Nagy CNPStart: 09-09-2019 End: 32-68-7972Toyjywol 150 MG Oral Tablet 09/09/2019 - 09/24/2019 Provider: Vahid Nagy CNPStart: 07-18-2019 End: 43-29-5678qaqhyhgbdmh (DIFLUCAN) 40 MG/ML suspension 200 mgStart: 11-26-2017 End: 34-24-8692Qcfpfddz 150 MG OR TABS 11/26/2017 - 11/26/2017 Provider:Start: 30-04-2616zjsm 1 tablet by mouth onceDiflucan 150 mg oral tablet 11/26/2017 take 1 tablet (150 mg) by oral route once for symptoms of yeast infection while on crtqkvxjxe630 actuat fluticasone propionate 0.044 mg/actuat metered dose inhaler (20 sources)CorticosteroidStart: 99-92-1791qkzq 2 puff(s) by inhalation twice dailyFLOVENT HFA 44 MCG/ACT inhaler Inhale 2 puffs into the lungs 2 times daily 1 each 5 12/18/2022 ActiveStart: 28-81-9907mvvc 1 puff(s) by inhalation once dailyfluticasone (ARNUITY ELLIPTA) 100 MCG/ACT AEPB Inhale 1 puff into the lungs daily 30 each 3 11/30/2021 ActiveStart: 15-31-7463Hnrccsi Allergy Relief 50 MCG/ACT Nasal Suspension 08/04/2019 [...] dry powder inhaler (1 source)Corticosteroid, beta2-Adrenergic AgonistStart: 75-61-9375mqdn 1 puff(s) by inhalation once daily1 puff, inhalation, Daily, First dose on Sat12/31/24 at 4005gnmisjnsqge-gajxyvzjx-ztkfvr (TRELEGY ELLIPTA) 200-62.5-25 MCG/ACT AEPB inhaler (1 source)Start: 27-29-8816cvfh 1 puff(s) by inhalation once daily dtlcqwnhfcy-tcnnyxdei-ohqftd (TRELEGY ELLIPTA) 200-62.5-25 MCG/ACT AEPB inhaler Indications: Chronic obstructive pulmonary disease, unspecified COPD type (HCC) Inhale 1 puff into the lungs daily 1 each 4 09/13/2023 Bxupeu996 actuat formoterol fumarate 0.0048 mg/actuat / glycopyrrolate 0.009 mg/actuat metered dose inhaler (20 sources)beta2-Adrenergic AgonistStart: 05-04-2019 End: 94-11-0098hszepbiqjxhtbl-formoterol (BEVESPI AEROSPHERE) 9-4.8 MCG/ACT AERO Indications: Chronic obstructive pulmonary disease, unspecified COPD type (HCC) Inhale 2 puffs into the lungs 2 times daily 1 Oohgrds60 07/25/2019 Active gabapentin 400 mg oral capsule (20 sources)Anti-epileptic AgentStart: 30-08-4826tree 800 mg by mouth three times eunqv583 mg, oral, 3 times daily, First dose on Sat12/30/24 at 2215, Look-alike/sound-alike medication -verify indication for use.Start: 09-03-2024 End: 83-29-1352gfkx 1 tablet by mouth three times dailygabapentin (NEURONTIN) 800 MG tablet Indications: Chronic diastolic congestive heart failure (HCC) , COPD with acute exacerbation (HCC) Take 1 tablet by mouth 3 times daily for 90 days. 270 tablet 09/03/2024 12/02/2024 ActiveStart: 60-35-3866xebb 600 mg by mouth three times ebljn599 mg, Oral, 3 TIMES DAILY, First dose (after last modification) on Sat08/13/24 at 1400, Until DiscontinuedStart: 08-12-2024 End: 31-32-4182unri 800 mg by mouth three times mg, Oral, 3 TIMES DAILY, First dose on Sat08/12/24 at 1545, Until DiscontinuedStart: 08-07-2024 take 600 mg by mouth three times ujvii427 mg, Oral, 3 TIMES DAILY, First dose (after last modification) on Sat08/07/24 at 1400, Until DiscontinuedStart: 08-07-2024 End: 93-37-8655lojb 300 mg by mouth three times swjyr741 mg, Oral, 3 TIMES DAILY, First dose (after last modification) on Sat08/07/24 at 0900, Until Disco ntinuedStart: 08-06-2024 End: 49-97-3987iqto 800 mg by mouth three times sjsio483 mg, Oral, 3 TIMES DAILY, First dose on Sat08/06/24 at 1515, Until DiscontinuedStart: 04-30-2024 End: 65-49-9126hbqn 1 tablet by mouth three times dailygabapentin (NEURONTIN) 800 MG tablet Indications: Chronic diastolic congestive heart failure (HCC) , COPD with acute exacerbation (HCC) Take 1 tablet by mouth 3 times daily for 90 days. 270 tablet 04/30/2024 ActiveStart: 16-64-4805khbq 300 mg by mouth three times dailyGabapentin Active 300 MG PO Three times daily January 23, 2024 12:00amStart: 01-19-2024 End: 78-09-0092wysb 800 mg by mouth four times dailyGabapentin Discontinued 800 MG PO Four times daily January 19, 2024 12:00am January 23, 2024 3:47pm Start: 10-21-2023 End: 57-77-9011zvln 1 tablet by mouth once daily at bedtimegabapentin (NEURONTIN) 800 MG tablet Indications: Chronic right hip pain , Lumbar back pain with radiculopathy affecting right lower extremity , Chronic left hip pain , Chronic pain syndrome , Sacralpain take 1 tablet by mouth every morning , AT NOON , every evening and at bedtime 120 tablet 10/21/2023 11/21/2023 Active Start: 07-03-2022 End: 28-28-6879bxdh 1 tablet by mouth three times dailygabapentin (NEURONTIN) 800 MG tablet Indications: Chronic left hip pain take 1 tablet by mouth three times a day 90 tablet 0 08/02/2022 09/01/2022 ActiveStart: 70-63-3384lodv 800 mg by mouth three times rietf949 mg, Oral, 3 TIMES DAILY, First dose on Sat04/21/19 at 2300Start: 02-11-2019 End: 61-60-4028Lljtyohzqt 600 MG Oral Tablet 07/09/2019 Provider: Vahid Nagy CNPStart: 06-27-2018 End: 58-77-3915Scipxtcywf 600MG Oral Tablet 09/29/2018 - 01/22/2019 Provider: Vahid Nagy CNPStart: 04-26-2018 End: 88-02-4701Cclubgwpik 600 MG OR TABS 04/26/2018 - 04/26/2018 Provider: Conversion ProviderStart: 04-03-2018 End: 08-21-5538Nkypkbbqbn 800MG OR TABS 04/03/2018 - 04/03/2018 Provider:Start: 08-09-2017 End: 63-89-8737Yfnmtxdptm 800MG OR TABS 08/09/2017 - 08/09/2017 Provider:Start: 01-15-2017 End: 03-19-7430Xyiftffaiq 800MG Oral Tablet 04/29/2018 - 06/27/2018 Provider: Start: 12-14-2016 End: 34-91-5280Capqkybysq 600 MG OR TABS 12/14/2016 - 12/14/2016 Provider:Start: 04-14-2015 End: 48-08-9418Rglvkhzfbw 600 MG OR TABS 04/14/2015 - 04/14/2015 Provider: End: 93-16-2291mkstdnwhqq (NEURONTIN) 600 mg tablet Take 800 mg [...] 70 mg/dL after initial treatment, repeat treatment.Start: 47-20-0997vlel 1 mL intravenous route every hour1 mg, Intramuscular, PRN, Low blood sugar, Blood glucose less than 70 mg/dL and patient NOT ALERT or NPO and does not have IV access., Starting Sat03/18/20 at 1350 After administration, attempt intravenous access and start D5W at 100 mL/hr. Repeat blood glucose in 15 minutes x2 and notify provider.Start: 91-95-3548zgtofkyw (rDNA) injection 1 mgStart: 04-24-2019 glucagon (rDNA) injection 1 mg150 ml glucose 50 mg/ml injection (13 sources)Start: g, oral, As needed, low blood sugar, blood glucose less than 70 mg/dL, Starting on Sat12/30/24 at 2153, If patient conscious and taking PO. If blood glucose is not greater than 70 mg/dL after initial treatment, repeat treatment.Start: 12-96-563823 mL, intravenous, As needed, low blood sugar, [...] VESICANT (RED) Warning: HYPERTONIC solution.Start: 12-30-2024 End: 69-97-2068vowh 70 mg intravenously every yahe370 mL/hr, intravenous, Continuous PRN, blood glucose less than 70 mg/dL, Starting on Sat12/30/24 at 2153, For 365 days, Use immediately following dextrose 50% or glucagon treatment for patients who are unconscious or NPO. Contact prescriber for additional orders. If blood glucose is not greater than 70 mg/dL after initial treatment, repeat treatment.Start: 07-19-2021 End: 67-31-3001lyrcbkah 50% injection 12.5 gStart: 30-43-581349 g, Oral, PRN, Low blood sugar, Starting [...] in 15 minutes x2 and notify provider.Start: 95-83-821269.5 g, Intravenous, PRN, Low blood sugar, Blood [...] using Glucostabilizer, dose as instructed per system.Start: 35-19-4261739 mL/hr, Intravenous, at 100 mL/hr, PRN, Low blood sugar, Starting Sat03/18/20 at 1350 Start infusion following administration of dextrose 50% or glucagon.Start: 80-02-7361kjrxpwuf 5 % solutionStart: 22-82-0103lgvmapn (GLUTOSE) 40 % oral gel 15 gStart: 07-18-2019 dextrose 50 % IV solutionStart: 74-51-8336xhxtgtr (GLUTOSE) 40 % oral gel 15 g Start: 28-91-0396jjrykzvr 50 % IV solutionStart: 60-82-4718xmknlezt 5 % solution glucose monitoring (FREESTYLE FREEDOM) kit (10 sources)Start: 48-21-1649bmqfewe monitoring (FREESTYLE FREEDOM) kit Indications: Type 2 diabetes mellitus with other specified complication, without long-term current use of insulin (HCC) 1 kit by Does not apply route daily 1 kit 0 03/23/2021 Btqllc75 hr guaiFENesin 600 mg extended release oral tablet (20 sources)Start: 01-01-2025 End: 90-72-6248htgn 1 tablet by mouth onceguaiFENesin (MUCINEX) 600 mg tablet extended release 12hr Take 1 tablet (600 mg total) by mouth every 12 (twelve) hours for 3 days. 01/01/2025 01/04/2025 ActiveStart: 57-97-3189pthf 600 mg by mouth every twelve kaaov969 mg, oral, Every 12 hours scheduled, First dose on Sat12/30/24 at 2200, Look-alike/sound-alike medication - verify indication for use. Do not crush or chew.Start: 01-17-2024 End: 00-24-7231mknmMBXcyjd 1,200 mg tablet extended release 12hr Take 1,200 mg by mouth every 12 (twelve) hours. 30 each 01/17/2024 04/17/2024 Discontinued (Therapy completed)Start: 05-17-2021 End: 17-77-5847mdlh 1 tablet by mouth twice dailyguaiFENesin (MUCINEX) 600 MG extended release tablet Take 1 tablet by mouth 2 times daily 0 05/17/2021 06/22/2021 Discontinued (LIST CLEANUP)Start: 03-26-2018 End: 59-20-0935wjtp 10 mL by mouth every four hours as neededguaifenesin 100 mg/5 mL oral liquid 03/26/2018 04/15/2018 take 10 milliliters (200 mg) by oral routeevery 4 hours as needed for 10 daysStart: 03-26-2018 End: 92-87-7554SJRDSQPWVAD 100 MG/5 ML [facility] 03/26/2018 - 03/26/2018 Provider: Start: 03-26-2018 End: 96-16-9429BUNSLJRFDBT 100MG/5 ML [facility] 03/26/2018 - 03/26/2018 Provider:1 ml hydrALAZINE hydrochloride 20 mg/ml injection (2 sources)Arteriolar VasodilatorStart: 63-21-301806 mg, Intravenous, EVERY 10 MIN PRN, High Blood Pressure, Starting Sat03/18/20 at 1350, For 2 doses For SBP greater than 150 mmHG Recovery(Cath)Start: 23-43-6873bqcuTHWPCIZ (APRESOLINE) injection 10 mgibuprofen 800 mg oral tablet (20 sources)Nonsteroidal Anti-inflammatory DrugStart: 10-12-2024 End: 19-55-5975yymw 1 tablet by mouth three times daily at mealtimeibuprofen (ADVIL;MOTRIN) 800 MG tablet Indications: Chronic right hip pain , Lumbar back pain with radiculopathy affecting right lower extremity , Chronic left hip pain , Chronic pain syndrome , Sacral pain Take 1 tablet by mouth 3 times daily (with meals) 90 tablet 11/19/2024 12/19/2024 ActiveStart: 01-19-2024 End: 30-09-1419mawe 1 tablet by mouth three times dailyIbuprofen (Ibu) 800 mg tablet Discontinued 800 MG PO Three times daily January 19, 2024 12:00am Oc tober 2023 3:47pmStart: 81-42-4713ozocbbqir (ADVIL;MOTRIN) tablet 400 mg Start: 04-14-2019 End: 33-74-1547Nadnjmgyo 600 MG Oral Tablet 07/03/2019 Provider: Vahid Nagy CNPStart: 04-29-2018 End: 72-10-4341Zltxgscnx 800MG Oral Tablet 06/11/2018 Provider: Vahid Nagy CNP Start: 01-08-2018 End: 03-52-2565Hhjzfcmgj 800 MG OR TABS 01/08/2018 - 01/08/2018 Provider:Start: 75-34-4860blwl 1 tablet by mouth twice daily as needed for painibuprofen 800 mg oral tablet 10/10/2017 take 1 tablet (800 mg) by oral route BID prn for pain with foodStart: 10-10-2017 End: 25-15-3505Hmvyljzdp 800 MG OR TABS 10/10/2017 - 10/10/2017 Provider:Start: 34-20-9579qqfo 1 tablet by mouth twice daily as needed for painibuprofen 800 mg oral tablet 05/15/2017 take 1 tablet (800 mg) by oral route BID prn for pain with foodStart: 05-15-2017 End: 77-59-7991Wnnccjhav 800 MG OR TABS 05/15/2017 - 05/15/2017 Provider:Start: 01-07-2017 End: 91-74-0488Ojioyowak 800 MG OR TABS 01/07/2017 - 01/07/2017 Provider: Incontinence Supplies MISC (9 sources)Start: 70-79-4586Gwjotvcnkfpb Supplies MISC Indications: Urge incontinence of urine Use as directed for dmxvgetjbojs336 each 5 10/23/2022 ActiveStart: 19-80-6796Qffkqnivmwqo Supplies MISC Indications: Functional incontinence Use as directed for urinary incontinence. 150 each 1 03/13/2022 ActiveIncontinence Supply Disposable ([facility] INCONTINENCE PADS) MISC (4 sources)Start: 12-01-0047Trzyvwegfwtt Supply Disposable ([facility] INCONTINENCE PADS) MISC Indications: Urge incontinence of urine 1 each by Does not apply route 4 times daily as needed (incontinence) 90 each 1 09/21/2022 A ctiveStart: 61-80-9134Jgwvqwppezrm Supply Disposable ([facility] INCONTINENCE PADS) MISC Indications: Urinary incontinence, unspecified type 1 each by Does not apply route 2 times daily 150 each 1 04/06/2021 ActiveIncontinence Supply Disposable MISC (20 sources)Start: 18-47-8348Zjmmykeehvtv Supply Disposable MISC Indications: Incontinence Incontinence pads 150 per month. Please order pad that is covered by insurance plan 150 each 3 07/25/2019 SuspendedStart: 47-61-4678Ujqsepljmyks Supply Disposable MISC Indications: Incontinence Incontinence pads 150 per month. Please order pad that is covered by insurance plan 150 each 3 07/25/2019 ActiveStart: 09-21-2014 End: 30-12-1254Isoigjxhpnhj Supply Disposable MISC Indications: Incontinence Incontinence pads 150 per month. Please order pad that is covered by insurance plan 150 each 3 09/21/2014 07/25/2019 Discontinued (REORDER)Start: 09-21-2014 Incontinence Supply Disposable MISC Indications: Incontinence Incontinence pads 150 per month. Please order pad that is covered by insurance plan 150 each 3 09/21/2014 Active3 ml insulin lispro 100 unt/ml pen injector (12 sources)Insulin AnalogStart: 92-72-8346wtajov 400 mg by subcutaneous injection three times [...] minutes before or immediately after a meal.Start: 56-46-1727tejssd 400 mg by subcutaneous injection once daily, [...] Units Above 400 &nbsp ; 6 UnitsStart: 34-02-03187-12 Units, Subcutaneous, 3 TIMES DAILY WITH MEALS, First dose on Sat03/18/20 at 1700 Medium Dose Corrective Algorithm Glucose: Dose: If <139 &am p;nbsp; No Insulin 140- 199 2 Units 200-249 4 Units 250-299 6 Units 300-349 8 Units&a mp;nbsp;350-400 10 Units Above 400 12 UnitsStart: 07-18-2019 End: 55-03-8234gwtadvu lispro (HUMALOG) injection vial 0-6 UnitsStart: 79-55-9122trfdidz lispro (HUMALOG) injection vial 0-3 Unitsiron sucrose (VENOFER) 200 mg in sodium chloride 0.9 % 100 mL IVPB (1 source)Start: 08-15-2024 End: 62-99-5809934 mg, IntraVENous, at 440 mL/hr, Administer over 15 Minutes, EVERY 24 HOURS, First dose on [facility] 08/15/24 at 1600, For 3 days, Observe for signs and symptoms of hypersensitivity and/or anaphylactic-type reactions per institutional standard during and for at least 30 minutes following the end of administration and until clinically stable.4 ml labetalol hydrochloride 5 mg/ml cartridge (2 sources)beta-Adrenergic BlockerStart: 11-52-066309 mg, Intravenous, EVERY 30 MIN PRN, High Blood Pressure, Starting Sat03/18/20 at 1350, For 2 doses For SBP greater than 150 mmHG. Hold if heart rate is less than 60. Dont use if hydralazine was used as PRN Recovery(Cath)Start: 07-18-2019 End: 84-55-7688wcmwtpmku (NORMODYNE;TRANDATE) injection 10 mgammonium lactate 120 mg/ml topical lotion (4 sources)Start: 41-92-5752rvltyvbb lactate (LAC-HYDRIN) 12 % lotion Indications: Dry skin Apply topically as needed. 396 g 2 06/15/2024 Active lactobacillus rhamnosus gg [id number] unt oral capsule (1 source)Start: 02-36-5973mkad 1 capsule by mouth once daily at breakfast lactobacillus (CULTURELLE) capsule Take 1 capsule by mouth daily (with breakfast) 30 capsule 10/27/2024 ActivelevoFLOXacin 250 mg oral tablet (11 sources)Quinolone AntimicrobialStart: 81-10-5636wqnr 1 tablet by mouth once daily after fmgkyrev827 mg, oral, Daily, First dose on Jenn [...] Box warnings of fluoroquinolones. Start: 12-11-2024 End: 09-66-7863ydtw 1 tablet by mouth in the morninglevoFLOXacin (LEVAQUIN) 750 mg tablet Take 1 tablet (750 mg total) by mouth in the morning for 28 days. 28 tablet 12/11/2024 01/08/2025 ActiveStart: 08-13-2022 End: 14-11-0919bbbi 1 tablet by mouth once dailylevoFLOXacin (LEVAQUIN) 750 MG tablet Indications: Chronic obstructive pulmonary disease, unspecified COPD type (HCC) Take 1 tablet by mouth daily for 7 days 7 tablet 0 08/13/2022 08/20/2022 ActiveStart: 10-06-2019 End: 00-79-6235gotz 1 tablet by mouth once dailylevoFLOXacin (LEVAQUIN) 500 MG tablet Take 1 tablet by mouth daily for 10 days 10 tablet 0 10/06/2019 10/16/2019 ActiveStart: 07-18-2019 End: 43-64-4729kdvwsbmrbyhu (LEVAQUIN) 750 MG/150ML infusion 750 mgStart: 07-17-2019 End: 80-71-2752bxjlxjssyopl (LEVAQUIN) 500 MG/100ML infusion 500 mgStart: 04-26-2019 End: 45-34-5117qjqf 1 tablet by mouth once dailylevofloxacin (LEVAQUIN) 500 MG tablet Take 1 tablet by mouth daily for 5 days 5 tablet 0 ActiveStart: 36-50-8388302 mg, Intravenous, EVERY 24 HOURS, First dose on Sat04/22/19 at 2100, Until DiscontinuedStart: 04-21-2019 End: 88-40-4399dyaxkmhqkaxr (LEVAQUIN) 750 MG/150ML infusion 750 mglidocaine 0.05 mg/mg medicated patch (15 sources)Antiarrhythmic, Amide Local AnestheticStart: 11-19-2024 End: 65-12-4532bbdxnisek (LIDODERM) 5 % Place 1 patch onto the skin daily for 10 days 12 hours on, 12 hours off. 10 patch 11/19/2024 11/29/2024 ActiveStart: 76-82-8526bqvj 15 mL by mouth four times daily as neededlidocaine viscous hcl (XYLOCAINE) 2 % SOLN solution Take 15 mLs by mouth 4 times daily as needed Along with Diphenhydramine and antacid 07/21/2024 ActiveStart: 02-22-2021 End: 58-27-7258khqsr 1 dose transdermal route once dailylidocaine (LIDODERM) 5 % Place 1 patch onto the skin daily 12 hours on, 12 hours off. 10 patch 0 03/17/2021 Discontinued (LIST CLEANUP)Start: 04-85-6245slgtchzoo 4 % external patch 1 patchStart: 04-05-2020 End: 68-97-8943eemxr 1 dose transdermal route once dailylidocaine (LIDODERM) 5 % Place 1 patch onto the skin daily 12 hours on, 12 hours off. 10 patch 0 01/2021 ActiveStart: 07-22-2019 End: 39-00-8505xktpobdos 1 % injection 5 mLStart: 07-22-2019 End: 19-07-0478oqursqsvi 1 % injectionStart: 04-12-2019 End: 63-60-9448srlbj 1 dose transdermal route once dailylidocaine (LIDODERM) 5 % Place 1 patch onto the skin daily 12 hours on, 12 hours off. 30 patch 0 03/202004/26/2019 Discontinued (Stop Taking at Discharge)linezolid 600 mg oral tablet (1 source)Oxazolidinone AntibacterialStart: 11-16-2024 End: 89-86-2424wynt 1 tablet by mouth twice dailylinezolid (ZYVOX) 600 MG tablet Indications: Cellulitis, unspecified cellulitis site Take 1 tablet by mouth 2 times daily for 7 days 14 tablet 11/16/2024 11/23/2024 Activeliothyronine sodium 0.005 mg oral tablet (1 source)l-TriiodothyronineStart: 15-48-4637oxzf 2 tablets by mouth once daily liothyronine (CYTOMEL) 5 MCG tablet Take 2 tablets by mouth daily 04/21/2023 Activelisinopril 40 mg oral tablet (20 sources)Angiotensin Converting Enzyme InhibitorStart: 71-92-7117bpwu 1 tablet by mouth once dailylisinopril 40 MG tablet Take 1 tablet by mouth daily. 0 06/22/2021 ActiveStart: 07-26-2019 End: 46-26-4825jbmm 1 tablet by mouth once dailylisinopril (PRINIVIL;ZESTRIL) 20 MG tablet Take 1 tablet by mouth daily 30 tablet 3 07/26/2019 ActiveStart: 57-60-8022yoqw 1 tablet by mouth once dailylisinopril (PRINIVIL;ZESTRIL) 20 MG tablet Take 1 tablet by mouth daily 30 tablet 3 07/26/2019 ActiveStart: 07-24-2019 End: 84-79-4786mykmqpigvw (PRINIVIL;ZESTRIL) tablet 5 mgStart: 04-29-2018 End: 59-99-0975Ykihulxduw 10 MG Oral Tablet 03/21/2020 Provider: Vahid Nagy CNPStart: 08-16-2017 End: 19-11-0281Ojckjpxnop 10MG OR TABS 08/16/2017 - 08/16/2017 Provider: LORazepam 0.5 mg oral tablet (20 sources)BenzodiazepineStart: 67-19-0340YPAytqpix (ATIVAN) tablet 0.5 mg Start: 37-81-8193khxf 0.5 mg by mouth every six hours as needed for anxiety0.5 mg, Oral, EVERY 6 HOURS PRN, Anxiety, Starting Jenn 07/23/19 at 0839Start: 06-17-2019 End: 46-89-9513Apfuro 1 MG Oral Tablet 07/09/2019 Provider: Vahid Nagy STUDENT COUNSELLOR Start: 95-63-0809futd 0.5 mg by mouth every six hours as needed for anxiety0.5 mg, Oral, EVERY 6 HOURS PRN, Anxiety, Starting 04/21/19 at 2231Start: 04-29-2018 End: 27-19-2428ZCUuqkihu 0.5MG Oral Tablet 06/27/2018 - 07/28/2018 Provider: Vahid Nagy CNPStart: 12-27-2017 End: 33-08-2468NIYyjewct 0.5 MG TABS 12/27/2017 - 12/27/2017 Provider:Start: 12-27-2017 End: 69-47-2569OJZfxrpsj 0.5 MG TABS 12/27/2017 - 12/27/2017 Provider:Start: 11-04-2017 End: 96-90-0917SULwozalz 0.5 MG TABS 11/04/2017 - 11/04/2017 Provider:Start: 10-22-2017 End: 49-61-1317KRUsmdprd 0.5 MG TABS 10/22/2017 - 10/22/2017 Provider:Start: 10-22-2017 End: 05-76-0676PHTjtlvzg 0.5 MG TABS 10/22/2017 - 10/22/2017 Provider:Start: 09-11-2017 End: 62-26-8676QQHqwuxdm 0.5 MG TABS 09/11/2017 - 09/11/2017 Provider:Start: 09-11-2017 End: 74-91-1157YUQlylceq 0.5 MG TABS 09/11/2017 - 09/11/2017 Provider:Start: 82-23-6153lchh 1 tablet by mouth once daily as needed for anxietylorazepam 0.5 mg oral tablet 02/15/2017 take 1 tablet (0.5 mg) by oral route once daily as needed only for severe anxietyStart: 02-15-2017 End: 56-66-8647SBOotdxke 0.5 MG TABS 02/15/2017 - 02/15/2017 Provider:Start: 01-17-2017 End: 66-65-6732BXCduuztt 0.5 MG TABS 01/17/2017 - 01/17/2017 Provider:losartan potassium 50 mg oral tablet (20 sources)Angiotensin 2 Receptor BlockerStart: 24-06-0473pxxk 100 mg by mouth once bhtaq951 mg, oral, Daily, First dose on Sat12/31/24 at 0900, Look-alike/sound-alike medication - verify indication for use.Start: 08-13-2024 take 100 mg by mouth once ueiab467 mg, Oral, DAILY, First dose on Sat08/13/24 at 0900, Until DiscontinuedStart: 09-70-4606lkfv 100 mg by mouth once mg, Oral, DAILY, First dose on Sat08/07/24 at 0900, Until DiscontinuedStart: 23-59-5988ttcr 1 tablet by mouth in the morninglosartan (COZAAR) 100 mg tablet Take 1 tablet (100 mg total) by mouth in the morning. 09/06/2022 ActiveStart: 30-48-2505rzqa 1 tablet by mouth once dailylosartan (COZAAR) 100 MG tablet Indications: Primary hypertension Take 1 tablet by mouth daily 90 tablet 1 05/21/2022 ActiveStart: 09-84-7121rkuy 1 tablet by mouth once dailylosartan (COZAAR) 50 MG tablet Indications: Primary hypertension take 1 tablet by mouth once daily 30 tablet 0 12/25/2021 ActiveStart: 73-72-3333rfdpkrck (COZAAR) tablet 100 mgmagic (miracle) mouthwash (1 source)Start: 98-25-1659Acdco Mouthwash (MIRACLE MOUTHWASH) (4 sources)Start: 94-78-0667lsgi 15 mL by mouth four times daily as neededMagic Mouthwash (MIRACLE MOUTHWASH) Indications: Mouth sore Swish and swallow 15 mLs 4 times daily as needed for Irritation Shake Well; For Oral Use. Lidocaine Viscous 2%; 80mL, Diphenhydramine 12.5MG/5Ml; 80mL, ALUM & MAG HYDROXIDE-SIMETH 200-200-20 MG/5ML; 80mL. 80 mL 07/21/2024 Activemagic mouthwash 15 mL (1 source)Start: 01-60-5628pxpnepkfu hydroxide 80 mg/ml oral suspension (1 source)Start: 98-01-9195rmtp 30 mL by mouth once daily as needed for mL, Oral, DAILY PRN, Constipation, Starting Sat04/21/19 [...] result continue the replacement orders as needed.Start: 69-98-2609Trcbp: 30-67-2664Pdhae: 07-18-2019 End: 81-02-2479ybfhdowsw sulfate 1 g in dextrose 5% 100 mL IVPBStart: 07-17-2019 End: 62-98-6931ouwhekurd sulfate 2 g in 50 mL IVPB premixmeclizine hydrochloride 12.5 mg oral tablet (20 sources)AntiemeticStart: 06-15-2019 End: 09-21-6270wynqylzpl (ANTIVERT) tablet 25 mgStart: 02-20-2019 End: 25-84-6388yuvb 1 tablet by mouth three times daily as needed for dizziness meclizine (ANTIVERT) 12.5 MG tablet Take 1 tablet by mouth 3 times daily as needed for Dizziness 90tablet 0 07/25/2019 Activemelatonin 3 mg oral tablet (3 sources)Start: 64-58-3717uwxy 1 tablet by mouth once daily at bedtime melatonin 10 mg tablet Take 1 tablet by mouth once daily at bedtime. Active methocarbamol 500 mg oral tablet (20 sources)Muscle RelaxantStart: 27-58-3343jdqd 750 mg by mouth four times xcnix434 mg, oral, 4 times daily, First dose on Sat12/31/24 at 1700, Indications: muscle spasmStart: 73-15-3217ktnk 1 tablet by mouth four times daily [...] ENING AND BEDTIME 120 tablet 11/12/2024 ActiveStart: 75-35-8144suix 750 mg by mouth four times mg, Oral, 4 TIMES DAILY, First dose on Sat08/12/24 at 1700, Until DiscontinuedStart: 71-03-2734shwb 750 mg by mouth four times daily 750 mg, Oral, 4 TIMES DAILY, First dose on Jenn 25 at 1700, Until DiscontinuedStart: 06-14-0293mkbo 1 tablet by mouth four times daily [...] EVENING AND BEDTIME 120 tablet 07/27/2024 ActiveStart: 90-96-0217jsaf 1 tablet by mouth four times daily at bedtimemethocarbamol (ROBAXIN) 750 MG tablet Indications: Chronic right hip pain , Lumbar back pain with radiculopathy affecting right lower extremity , Chronic left hip pain , Chronic pain syndrome , Sacral pain take 1 tablet by mouth four times a day - MORNING, NOON, EVENING AND BEDTIME 120 tablet 10/23/2023 ActiveStart: 80-85-5748opev 1 tablet by mouth four times dailymethocarbamol (ROBAXIN) 750 MG tablet Indications: Chronic right hip pain , Sacral pain , Lumbar back pain with radiculopathy affecting right lower extremity , Chronic left hip pain , Chronic pain syndrome Take 1 tablet by mouth 4 times daily 120 tablet 0 08/13/2022 ActiveStart: 11-92-2249gpdm 1 tablet by mouth four times dailymethocarbamol (ROBAXIN) 750 MG tablet Indications: Chronic right hip pain , Sacral pain , Lumbar back pain with radiculopathy affecting right lower extremity , Chronic left hip pain , Chronic pain syndrome Take 1 tablet by mouth 4 times daily 120 tablet 0 07/10/2022 ActiveStart: 04-06-2021 End: 85-64-8902ycov 1 tablet by mouth four times dailymethocarbamol (ROBAXIN- 750) 750 MG tablet Indications: Chronic right hip pain , Muscle spasm Take 1 tablet by mouth 4 times daily for 10 days 40 tablet 0 04/06/2021 04/16/2021 ActiveStart: 01-12-2021 End: 33-93-5717qvxi 1 tablet by mouth four times daily as needed for pain methocarbamol (ROBAXIN) 500 MG tablet Take 1 tablet by mouth 4 times daily as needed (Muscle pain/spasm) 40 tablet 0 01/12/2021 01/22/2021 Active methylPREDNISolone 40 mg injection (7 sources)CorticosteroidStart: 75-24-7237tgtx 40 mg intravenously every eight hours40 mg, intravenous, Every 8 hours, First dose on Sat12/30/24 at 2200, May alter blood glucose or insulin requirements. Look-alike/sound-alike medication - verify indication for use.Start: 12-30-2024 End: 53-91-3776142 mg, intravenous, Once, On Sat12/30/24 at 1510, For 1 dose, May alter blood glucose or insulin requirements. Look-alike/sound-alike medication - verify indication for use.Start: 10-07-2019 End: 10-13-0206wfjvlbYDKKZRCeglaw sodium (SOLU-MEDROL) injection 125 mgStart: 07-18-2019 End: 47-78-0387wexyqkIGBGQXJqpejq sodium (SOLU-MEDROL) injection 40 mgStart: 04-22-2019 End: 99-50-2856954 mg, Intravenous, DAILY, First dose on Sat04/22/19 at 0900 Start: 04-21-2019 End: 91-14-1863lujeajFXOKLXLxhdvc sodium (SOLU-MEDROL) injection 125 mg24 hr metoprolol succinate 25 mg extended release oral tablet (20 sources)beta-Adrenergic BlockerStart: 16-74-6330tpsw 25 mg by mouth once daily25 mg, oral, Daily, First dose on Sat12/31/24 at 0900, Look-alike/sound-alike medication - verify indication for use. Do not crush or chew.Start: 01-81-5777dmeb 1 tablet by mouth once dailymetoprolol succinate (TOPROL XL) 25 MG extended release tablet Take 1 tablet by mouth daily 90 tablet 1 09/02/2024 ActiveStart: 97-24-1696hdhv 25 mg by mouth once daily25 mg, Oral, DAILY, First dose on Sat08/13/24 at 0900, Until Discontinued, Do not crush or chew.Start: 01-04-6467mkdj 25 mg by mouth once dailyMetoprolol Succinate Active 25 MG PO Daily January 19, 2024 12:00amStart: 44-34-7379bxzn 1 tablet by mouth once dailymetoprolol succinate (TOPROL XL) 25 MG extended release tablet Take 1 tablet by mouth daily 90 tablet 1 11/04/2023 ActiveStart: 83-75-4402oasz 1 tablet by mouth every twenty-four hours in the morningmetoprolol succinate XL (TOPROL XL) 25 mg 24 hr tablet Take 1 tablet (25 mg total) by mouth in the m orning. 30 tablet 2 09/27/2022 ActiveStart: 83-81-8436sido 1 tablet by mouth twice dailymetoprolol 25 MG tab regular release Take 1 tablet by mouth 2 times daily. 0 06/22/2021 ActiveStart: 43-17-0327yythnnjspq tartrate (LOPRESSOR) tablet 25 mgStart: 24-72-9684hwtakglfky (LOPRESSOR) injection 5 mgStart: 12-16-2019 End: 64-62-9271vqtv 1 tablet by mouth twice dailymetoprolol tartrate (LOPRESSOR) 25 MG tablet Take 1 tablet by mouth 2 times daily 180 tablet 3 03/19/2020 ActiveStart: 07-70-2148lcni 1 tablet by mouth every twenty-four hoursMetoprolol Succinate ER 25 MG Oral Tablet Extended Release 24 Hour 09/24/2019 Provider: Start: 07-21-2019 End: 55-46-7936lwjgrgjzzl tartrate (LOPRESSOR) tablet 12.5 mgStart: 07-18-2019 End: 15-98-3888uppd 1 tablet by mouth twice dailymetoprolol tartrate (LOPRESSOR) 25 MG tablet Take 1 tablet by mouth 2 times daily 60 tablet 3 07/25/2019 Active Start: 04-16-2019 End: 09-49-7134rybu 1 tablet by mouth every twenty-four hoursMetoprolol Succinate ER 100 MG Oral Tablet Extended Release 24 Hour 04/16/2019 - 09/24/2019 Provider: Vahid Nagy CNPStart: 04-29-2018 End: 90-78-4557gcgl 1 tablet by mouth every twenty-four hoursMetoprolol Succinate ER 100MG Oral Tablet Extended Release 24 Hour 04/29/2018 - 04/14/2019 Provider:Start: 04-26-2018 End: 59-38-4418Netxsguved Tartrate 50 MG OR TABS 04/26/2018 - 04/26/2018 Provider: Conversion ProviderStart: 04-26-2018 End: 01-89-8820Krjxqmeoqx Tartrate 25 MG OR TABS 04/26/2018 - 04/26/2018 Provider: Conversion ProviderStart: 03-17-2018 End: 40-77-9123YQIRIYQQMH SUCCINATE 100 MG [facility] 03/17/2018 - 03/17/2018 Provider:Start: 03-17-2018 End: 84-43-8378UJSXKDVCOQ SUCCINATE 100MG [facility] 03/17/2018 - 03/17/2018 Provider: Start: 02-19-2017 End: 12-91-5835OGJNGNZPRT SUCCINATE 100 MG [facility] 02/19/2017 - 02/19/2017 Provider:Start: 02-19-2017 End: 37-78-1194EPAWOLKJWB SUCCINATE 100MG [facility] 02/19/2017 - 02/19/2017 Provider: Start: 02-19-2017 End: 28-87-6870rfbw 100 mg by mouth once ijwsm725 mg, Oral, DAILY, First dose on Sat04/22/19 at 0900 Do not crush or chew.Start: 12-14-2016 End: 46-79-2237Osmvjdpzah Tartrate 25 MG OR TABS 12/14/2016 - 12/14/2016 Provider:Start: 12-14-2016 End: 54-11-0882Dvbljbmajw Tartrate 25 MG OR TABS 12/14/2016 - 12/14/2016 Provider:Start: 04-14-2015 End: 28-07-5020Oacybyukyv Tartrate 25 MG OR TABS 04/14/2015 - 04/14/2015 Provider:miconazole nitrate 0.02 mg/mg topical powder (1 source)Azole AntifungalStart: 90-92-3748tatiyclaha (MICOTIN) 2 % powder midodrine hydrochloride 5 mg oral tablet (3 sources)alpha-Adrenergic AgonistStart: 29-87-8307qwzxqftsz (PROAMATINE) 5 MG tablet 08/19/2024 ActiveStart: 69-76-2963uxev 1 tablet by mouth three times daily at mealtimemidodrine (PROAMATINE) 5 MG tablet Take 1 tablet by mouth 3 times daily (with meals) 90 tablet 3 05/17/2021 ActiveMultiple Vitamin (MULTIVITAMIN) TABS tablet (1 source)Start: 37-90-6882yrns 1 tablet by mouth once dailyMultiple Vitamin (MULTIVITAMIN) TABS tablet Take 1 tablet by mouth daily 30 tablet 2 10/27/2024 Activemupirocin 0.02 mg/mg topical ointment (17 sources)RNA Synthetase Inhibitor AntibacterialStart: 49-81-2007Wofnaklws 2% External Ointment 04/12/2020 Provider: Vahid Nagy CNPStart: 04-12-2020 Mupirocin 2% External Ointment 04/12/2020 Provider: Vahid Nagy CNPStart: 08-06-2019 End: 68-20-7277Xaokntwgg 2% External Ointment 08/06/2019 - 04/12/2020 Provider: Vahid Nagy CNPnaloxone (NARCAN) 4 mg/actuation spray,non-aerosol nasal spray (2 sources)Start: 90-12-2548lqmmrpik (NARCAN) 4 mg/actuation spray,non-aerosol nasal spray Administer 1 spray (4 mg total) intoalternating nostrils as needed for opioid reversal. 1 each 12/17/2024 ActiveStart: 19-41-0003ceuyezmz (NARCAN) 4 mg/actuation spray,non-aerosol nasal spray Administer 1 spray (4 mg total) intoalternating nostrils as needed for opioid reversal. 1 each 12/17/2024 naproxen 500 mg oral tablet (2 sources)Nonsteroidal Anti-inflammatory DrugStart: 74-55-5865tiwf 1 tablet by mouth twice daily as needed for painnaproxen (NAPROSYN) 500 MG tablet Take 1 tablet by mouth 2 times daily as needed for Pain 30 tablet0 07/29/2022 Nsbkxt96 hr nicotine 0.875 mg/hr transdermal system (20 sources)Cholinergic Nicotinic AgonistStart: 75-23-2552amfvd 1 dose transdermal route once daily1 patch, transdermal, Administer over 24 Hours, Daily, First dose on [facility] 12/31/24 at 1515, Remove patch prior to MRI procedure as serious lloyd may occur- patch may be reapplied. Remove previous patch, if present, before applying new.Start: 44-52-0443nllvl 1 dose transdermal route once dailynicotine (NICODERM CQ) 21 MG/24HR Place 1 patch onto the skin daily 30 patch 09/08/2024 ActiveStart: 63-95-9528xguiy 1 dose transdermal route once dailynicotine (NICODERM CQ) 21 MG/24HR Place 1 patch onto the skin daily 08/18/2024 ActiveStart: 48-88-5093hdmua 1 dose transdermal route once daily nicotine (NICODERM CQ) 21 MG/24HR Place 1 patch onto the skin daily 08/18/2024 ActiveStart: 08-88-4558kuwxl 1 dose transdermal route once daily at [...] to facility policy for handling and disposal.Start: 07-51-0559dzpgq 1 dose transdermal route once daily at [...] policy for handling and disposal.Start: 04-27-2022 End: 87-78-6303dkgto 1 dose transdermal route every twenty-four hoursnicotine 14 MG/24HR Patch [address] 1 patch on skin every 24 hours for 14 days. 14 patch 0 04/27/2022 05/11/2022 ActiveStart: 16-82-8590txjhd 1 dose transdermal route every twenty-four hoursnicotine 7 MG/24HR Patch 24 HR patch Place 1 patch on skin every 24 hours. 14 patch 0 04/27/2022 ActiveStart: 02-72-2252brmxvxxa polacrilex 2 MG Gum Take 1 Each by mouth as needed for Smoking cessation. 40 Each 3 04/27/2022 ActiveStart: 40-90-0554heoxmhwo (NICODERM CQ) 7 MG/24HR Place 1 patch onto the skin daily 30 patch 3 05/18/2021 ActiveStart: 03-17-2021 nicotine (NICODERM CQ) 21 MG/24HR 1 patchStart: 88-43-0395kjxpe 1 dose transdermal route once dailynicotine (NICODERM CQ) 21 MG/24HR Place 1 patch onto the skin daily 30 patch 3 02/23/2021 ActiveStart: 65-47-9085pkwglkur (NICODERM CQ) 14 MG/24HR 1 patchStart: 09-21-2019 End: 53-83-3348scziyolq (NICODERM CQ) 7 MG/24HR Indications: Tobacco abuse Place 1 patch onto the skin daily for 14 days 14 patch 0 09/21/2019 ActiveStart: 04-21-2019 End: 45-99-4902oltcxsji (NICODERM CQ) 14 MG/24HR 1 patchnitroglycerin 0.4 mg sublingual tablet (20 sources)Nitrate VasodilatorStart: 19-74-7248pjcwfPABASVON (NITROSTAT) 0.[address] 1 tablet under the tongue every 5 minutes as needed for Chest pain up to max of 3 total doses. If no relief after 1 dose, call 911. 25 tablet 3 02/19/2024 ActiveStart: 79-33-1142dhexxYWRVDJOR (NITROSTAT) 0.[address] 1 tablet under the tongue every 5 minutes as needed for Chest pain up to max of 3 total doses. If no relief after 1 dose, call 911. 25 tablet 3 024 ActiveStart: 25-72-1517usvakJBRBNTMI (NITROSTAT) 0.[address] 1 tablet under the tongue as needed for Chest pain25 tablet 3 05/09/2021 Active Start: 07-17-2019 End: 47-89-3892ijypzTAVFAAVO (NITROSTAT) 0.[address] 1 tablet under the tongue as needed for Chest pain25 tablet 3 07/25/2019 ActiveStart: 32-86-7049Lgzxdooph 0.4MG Sublingual Tablet Sublingual 04/29/2018 Provider: Start: 04-26-2018 End: 88-46-2086Ghkgmhrxl 0.4 MG SL SUBL 04/26/2018 - 04/26/2018 Provider: Conversion ProviderStart: 02-24-2018 End: 83-92-1239Theledenc 0.4MG SL SUBL 02/24/2018 - 02/24/2018 Provider:Start: 12-14-2016 End: 22-68-8753Ddopawcpg 0.4MG SL SUBL 12/14/2016 - 12/14/2016 Provider:Start: 04-14-2015 End: 41-99-8902Bjraocggw 0.4 MG SL SUBL 04/14/2015 - 04/14/2015 Provider: Nitrostat 0.4MG Sublingual Tablet Sublingual (2 sources)Start: 26-88-6437Vvxnayyhd 0.4MG Sublingual Tablet Sublingual 04/29/2018 Provider:Nutritional Supplements (ENSURE HIGH PROTEIN) LIQD (2 sources)Start: 06-20-2021 End: 19-61-0855aoxj 1 dose by mouth at bedtimeNutritional Supplements (ENSURE HIGH PROTEIN) LIQD Indications: Malnutrition, unspecified type (HCC) Take 1 each by mouth in the morning, at noon, and at bedtime 90 each 0 06/20/2021 07/20/2021 Activenystatin 349281 unt/ml / triamcinolone acetonide 1 mg/ml topical cream (4 sources)Polyene Antifungal, CorticosteroidStart: 90-70-4690Taashpxe- Triamcinolone 139456-1.1UNIT/GM-% External Cream 09/30/2018 Provider: Vahid Nagy CNPofloxacin 3 mg/ml otic solution (2 sources)Quinolone AntimicrobialStart: 92-29-1858Fldyvizsy 0.3% Otic Solution 04/12/2020 Provider: Vahid Nagy CNPStart: 89-97-1947Nlrzybkmu 0.3% Otic Solution 04/12/2020 Provider: Vahid Nagy CNP2 ml ondansetron 2 mg/ml injection (18 sources)Serotonin-3 Receptor AntagonistStart: 02-79-5152evax 4 mg intravenously every six hours as needed for nausea and vomiting4 mg, intravenous, Every 6 hours PRN, nausea, vomiting, Starting on Sat12/30/24 at 2153, Intravenous administration preferred to be given over 2-5 minutes.Start: 11-19-2024 End: mg, IntraVENous, ONCE, 1 dose, On Jenn 11/19/24 at 1315Start: 42-27-9129rjuo 1 tablet by mouth every eight hours as needed for nausea and vomitingondansetron ODT (ZOFRAN ODT) 4 mg disintegrating tablet Dissolve 1 tablet (4 mg total) on tongue every 8 (eight) hours as needed for nausea or vomiting. 02/06/2024 ActiveStart: 03-18-2021 End: 80-56-7984xwmywqzxvgv (ZOFRAN) injection 4 mgStart: 02-09-2021 End: 47-35-5989fqeyixnhzkl (ZOFRAN) injection 4 mgStart: 01-17-2021 End: 09-80-6137jnivcecaoqh (ZOFRAN) injection 4 mgStart: 01-12-2021 End: 73-56-6302zapdsdtczxf (ZOFRAN) injection 4 mgStart: 12-04-2020 End: 84-91-7755gmjs 1 tablet by mouth every eight hours as needed for nausea ondansetron (ZOFRAN ODT) 4 MG disintegrating tablet Take 1 tablet by mouth every 8 hours as needed for Nausea or Vomiting 14 tablet 0 12/04/2020 03/17/2021 Discontinued (LIST CLEANUP)Start: mg, Intravenous, EVERY 6 HOURS PRN, Nausea, Starting Tu04/21/19 at 2231ondansetron (ZOFRAN-ODT) disintegrating tablet 4 mg (2 sources)Start: 15-77-9317acaujxuvkka (ZOFRAN-ODT) disintegrating tablet 4 mg Start: 04-16-0136bkcsbkbpgla (ZOFRAN-ODT) disintegrating tablet 4 mgOxygen (20 sources)OXYGEN Inhale 2 L into the lungs 0 SuspendedOXYGEN Inhale 2 L into the lungs 0 Activepantoprazole 40 mg delayed release oral tablet (14 sources)Proton Pump InhibitorStart: 08-98-655620 mg, oral, 2 times daily before meals, First dose on Sat12/31/24 at 0700, Look-alike/sound-alike m edication - verify indication for use. If patient is receiving enteral feeding, consider alternative PPI or continue IV pantoprazole until the delayed-release tablet can be taken orally, Indication: GERDStart: 65-63-9558bufb 1 tablet by mouth in the morning, then take 1 tablet by mouth before mealtimepantoprazole (PROTONIX) 40 mg EC tablet Take 1 tablet (40 mg total) by mouth in the morning and 1 tablet (40 mg total) in the evening. Take before meals. 60 tablet 2 01/17/2024 ActiveStart: 39-41-0670cabi 1 tablet by mouth in the morning, then take 1 tablet by mouth before mealtimepantoprazole (PROTONIX) 40 mg EC tablet Take 1 tablet (40 mg total) by mouth in the morning and 1 tablet (40 mg total) in the evening. Take before meals. 60 tablet 2 01/17/2024 Activephenazopyridine hydrochloride 100 mg oral tablet (1 source)Start: 08-23-4815Brcucfpx 100 MG Oral Tablet 11/16/2019 Provider: Vahid Nagy CNPStart: 51-99-1272Jowdwpgy 100 MG Oral Tablet 11/16/2019 Provider: Vahid Nagy CNPpioglitazone 45 mg oral tablet (20 sources)Peroxisome Proliferator Receptor alpha Agonist, Peroxisome Proliferator Receptor gamma Agonist, ThiazolidinedioneStart: 09-02-2024 End: 50-82-8959zsij 1 tablet by mouth once dailypioglitazone (ACTOS) 45 MG tablet Take 1 tablet by mouth daily 90 tablet 09/02/2024 12/01/2024 ActiveStart: 70-59-0131hswe 45 mg by mouth once daily45 mg, Oral, DAILY, First dose on Jenn 08/13/24 at 0900, Until DiscontinuedStart: 67-94-3717zsji 1 tablet by mouth once dailypioglitazone (ACTOS) 15 MG tablet Indications: Type 2 diabetes mellitus with other specified complication, without long-term current use of insulin (HCC) Take 1 tablet by mouth daily 90 tablet 0 04/06/2021 ActiveStart: 60-31-6352qntupqfohbbe (ACTOS) tablet 15 mgStart: 10-92-7132Dgxli 15 MG Oral Tablet 09/24/2019 Provider:Start: 04-14-2015 End: 35-27-1424Aakab 15MG OR TABS 12/14/2016 - 12/14/2016 Provider:take 1 tablet by mouth once dailypioglitazone (ACTOS) 45 MG tablet Take 1 tablet by mouth daily Activepiperacillin-tazobactam (ZOSYN) 3,375 mg in dextrose 5 % 50 mL IVPB extended infusion (mini-bag) (1 source)Start: 63-25-6245janbhggetblb-tazobactam (ZOSYN) 3,375 mg in dextrose 5 % 50 mL IVPB extended infusion (mini-bag)polyethylene glycol 3350 56000 mg powder for oral solution (4 sources)Osmotic LaxativeStart: 74-24-0376Aqlje: 48-00-5224Avhum: 03-17-2020 polyethylene glycol (GLYCOLAX) packet 17 gStart: 55-06-830489 g, Oral, DAILY PRN, Constipation, Starting 07/18/19 at 0128 First line [place] [address] unt/ml / trimethoprim 1 mg/ml ophthalmic solution (20 sources)Dihydrofolate Reductase Inhibitor Antibacterial, Polymyxin-class AntibacterialStart: 09-02-2024 End: 42-71-4091fjti 1 drop(s) into the eye(s) every four hourstrimethoprim- polymyxin b (POLYTRIM) 19671-5.1 UNIT/ML-% ophthalmic solution Place 1 drop into both eyes every 4 hours for 10 days 10 mL 09/02/2024 09/12/2024 ActiveStart: 03-03-2019 End: 10-97-3233Hgmjokfar B-Trimethoprim 25675-8.1 UNIT/ML-% Ophthalmic Solution 03/03/2019 - 09/24/2019 Provider: Elena Malik CNPmicroencapsulated potassium chloride 20 meq extended release oral tablet (14 sources)Start: mEq, oral, Daily, First dose on Jenn 12/31/24 at 1115, Do not crush or chew.Start: 60-57-4699zbuxbwxjd chloride (K-TAB,KLOR-CON) CR tablet 30-50 mEqStart: 33-96-5009saildmohi chloride (KLOR-CON M) extended release tablet 40 mEqStart: 47-55-1085prrmpdgdl chloride (KLOR-CON M) extended release tablet 40 mEqStart: 02-06-2024 End: 80-48-1701teid 1 dose by mouth in the morningpotassium chloride (KLOR-CON) 20 mEq packet Take 1 packet (20 mEq total) by mouth in the morning and 1 packet (20 mEq total) before bedtime. 02/06/2024 ActiveStart: 49-15-9072hytt 20 mEq by mouth twice dailypotassium chloride (KLOR-CON) 20 MEQ packet Take 20 mEq by mouth 2 times daily 180 each 3 04/24/2023 ActiveStart: 07-25-2019 End: 12-77-9914pdlzphqqz chloride (KLOR-CON M) extended release tablet 40 mEq Start: 07-21-2019 End: 53-88-5498lkqfkomuk chloride (KLOR-CON M) extended release tablet 40 mEq Start: 07-18-2019 End: 75-93-6931jupkdickj chloride 20 mEq/50 mL IVPB (Central Line)povidone- iodine 100 mg/ml topical spray (3 sources)AntisepticStart: 08-10-2024 End: 23-83-7464dqevr 1 dose topically once dailyTopical, DAILY, First dose on Jenn 08/13/24 at 2200, To wounds of feet and toespredniSONE 20 mg oral tablet (20 sources)CorticosteroidStart: 11-19-2024 End: 59-96-0001qggu 1 tablet by mouth twice dailypredniSONE (DELTASONE) 20 MG tablet Take 1 tablet by mouth 2 times daily for 5 days 10 tablet 11/19/2024 11/24/2024 ActiveStart: 06-54-5382wxzgcxGFZC (DELTASONE) 10 mg tablet 40 mg for 5 days, 30 mg for 4, 20 mg for 3, 10 mg for 2, then stop 40 tablet 10/23/2022 SuspendedStart: 08-13-2022 End: 29-67-7375ypgj 1 tablet by mouth twice dailypredniSONE (DELTASONE) 20 MG tablet Indications: Chronic obstructive pulmonary disease, unspecifiedCOPD type (HCC) Take 1 tablet by mouth 2 times daily for 5 days 10 tablet 0 08/13/2022 08/18/2022 ActiveStart: 03-13-2020 End: 55-85-7102qcle 1 tablet by mouth twice dailypredniSONE (DELTASONE) 20 MG tablet Take 1 tablet by mouth 2 times daily for 5 days 10 tablet 0 03/13/2020 03/19/2020 Discontinued (Stop Taking at Discharge)Start: 03-13-2020 End: 72-34-5589yarjwfKZNH (DELTASONE) tablet 40 mgStart: 22-98-5621vbghbnYAJP 20 MG Oral Tablet 09/24/2019 Provider: Shawna Holliday CNPStart: 08-13-2019 End: 41-21-2847faerpfETCU 20 MG Oral Tablet 09/09/2019 - 09/15/2019 Provider: Vahid Nagy CNPStart: 08-04-2019 End: 79-17-5410rbrnzeEPZJ 20 MG Oral Tablet 08/04/2019 - 07/30/2019 Provider: Vahid Nagy CNPStart: 08-04-2019 End: 54-70-2432wgrkspJTYF 20 MG Oral Tablet 08/04/2019 - 07/30/2019 Provider: Vahid Nagy CNPStart: 08-04-2019 End: 93-12-9346mmslbrZDVO 20 MG Oral Tablet 08/04/2019 - 07/30/2019 Provider: Vahid Nagy CNPStart: 08-04-2019 End: 68-02-8278hfpqhrRDMO 20 MG Oral Tablet 08/04/2019 - 07/30/2019 Provider: Vahid Nagy CNPStart: 08-04-2019 End: 12-63-5038zrjwxdHJJO 20 MG Oral Tablet 08/04/2019 - 07/30/2019 Provider: Vahid Nagy CNPStart: 08-04-2019 End: 27-49-8631svvrvgXNUH 20 MG Oral Tablet 08/04/2019 - 07/30/2019 Provider: Vahid Nagy CNPStart: 08-04-2019 End: 12-13-2192aewsadNXJF 20 MG Oral Tablet 08/04/2019 - 07/30/2019 Provider: Vahid Nagy CNPStart: 08-04-2019 End: 33-16-2047qhcvyhKUFH 20 MG Oral Tablet 08/04/2019 - 07/30/2019 Provider: Vahid Nagy CNPStart: 08-04-2019 End: 26-28-1341ucawgsDVTQ 20 MG Oral Tablet 08/04/2019 - 07/30/2019 Provider: Vahid Nagy CNPStart: 08-04-2019 End: 09-13-7651ynrdiwQEUW 20 MG Oral Tablet 08/04/2019 - 07/30/2019 Provider: Vahid Nagy CNPStart: 08-04-2019 End: 28-45-1832yxsilyZVQH 20 MG Oral Tablet 08/04/2019 - 07/30/2019 Provider: Vahid Nagy CNPStart: 08-04-2019 End: 79-34-1705rrnuzdZJIV 20 MG Oral Tablet 08/04/2019 - 07/30/2019 Provider: Vahid Nagy CNPStart: 08-04-2019 End: 41-04-9475trlshlYCRH 20 MG Oral Tablet 08/04/2019 - 07/30/2019 Provider: Vahid Nagy CNPStart: 08-04-2019 End: 55-81-9515dsmmpjQNNL 20 MG Oral Tablet 08/04/2019 - 07/30/2019 Provider: Vahid Nagy CNPStart: 08-04-2019 End: 16-25-3332xsswmtJRLW 20 MG Oral Tablet 08/04/2019 - 07/30/2019 Provider: Vahid Nagy CNPStart: 07-23-2019 End: 15-95-1569kxyaeoMNXA (DELTASONE) tablet 40 mgStart: 06-17-2019 End: 86-21-3144qkaopiHWPE 20 MG Oral Tablet 06/17/2019 - 07/30/2019 Provider: Vahid Nagy CNPStart: 40-67-9446vtlnvwMKAL 20 MG Oral Tablet 03/20/2019 Provider: Vahid Nagy CNPStart: 57-54-8835tijupiKRHY 20 MG Oral Tablet 03/20/2019 Provider: Vahid Nagy CNPStart: 10-30-2018 End: 74-73-1958gsicjlFMEC 20 MG Oral Tablet 12/11/2018 Provider: Vahid Nagy CNPStart: 02-27-2018 End: 41-04-9781svxtabMBSW 20 MG OR TABS 02/27/2018 - 02/27/2018 Provider:Start: 08-09-2017 End: 06-73-4074zdmovjBPSA 20MG OR TABS 08/09/2017 - 08/09/2017 Provider:take 1 tablet by mouth in the morningpredniSONE (DELTASONE) 10 mg tablet Take 1 tablet (10 mg total) by mouth in the morning. ActiveProAir HFA 108 (90 Base)MCG/ACT Inhalation Aerosol Solution (2 sources)Start: 52-11-9217XxgGmx HFA 108 (90 Base)MCG/ACT Inhalation Aerosol Solution 04/29/2018 Provider:Promethazine (2 sources)PhenothiazineStart: 51-25-8784avahfbaxqtyw (PHENERGAN) tablet 12.5 mg Start: 02-55-2314mdpprmebnffk (PHENERGAN) tablet 12.5 mgPulse Oximeter For Finger Miscellaneous (15 sources)Start: 39-21-2848Zegmn Oximeter For Finger Miscellaneous 07/30/2019 Provider: Vahid Angelita CNPPulse Oximeter For Finger Miscellaneous (1 source)Start: 68-57-7304Okzzh Oximeter For Finger Miscellaneous 07/30/2019 Provider: Vahid Nagy CNPQUEtiapine 25 mg oral tablet (10 sources)Atypical AntipsychoticStart: 17-02-5177ghmy 25 mg by mouth once daily25 mg, oral, Nightly, First dose on Sat12/30/24 at 2215, Look-alike/sound-alike medication - verifyindication for use.Start: 03-29-2024 End: 74-53-3184dmbb 1 tablet by mouth once daily for anxietyQUEtiapine (SEROquel) 25 mg tablet Take 1 tablet (25 mg total) by mouth nightly. For anxiety 03/29/2024 ActiveStart: 01-19-2024 End: 16-88-7672vrrn 1 tablet by mouth once dailyQuetiapine (Seroquel) 25 mg tablet Discontinued 25 MG PO Daily January 19, 2024 12:00am January 23, 2024 3:47pmStart: 52-93-2116ugie 1 tablet by mouth at bedtimeQUEtiapine (SEROQUEL) 25 MG tablet Take 1 tablet by mouth at bedtime 30 tablet 10/18/2023 ActiveQvar RediHaler 80MCG/ACT Inhalation Aerosol Breath Activated (2 sources)Start: 50-61-5069Xoct RediHaler 80MCG/ACT Inhalation Aerosol Breath Activated 04/29/2018 Provider:rosuvastatin calcium 10 mg oral tablet (1 source)HMG-CoA Reductase InhibitorStart: 13-75-2549syeq 5 mg by mouth once daily5 mg, oral, Nightly, First dose on Sat12/31/24 at 2200, Look-alike/sound-alike medication - verify indication for use.sertraline 50 mg oral tablet (20 sources)Serotonin Reuptake InhibitorStart: 67-82-7489kkkp 1 tablet by mouth once dailysertraline (ZOLOFT) 50 MG tablet Indications: Depression, unspecified depression type Take 1 tabletby mouth daily 90 tablet 0 11/23/2021 ActiveStart: 08-26-2019 End: 60-29-8279Pbtzujoaef HCl 100 MG Oral Tablet 04/11/2020 Provider: Vahid Nagy CNPStart: 58-25-9315haxa 50 mg by mouth once daily50 mg, Oral, DAILY, First dose on Sat04/22/19 at 0900Start: 04-14-2019 End: 00-48-5643Utdjak 50 MG Oral Tablet 07/09/2019 - 08/26/2019 Provider: Vahid Nagy CNPStart: 04-26-2018 End: 24-33-3364ZVPURZXZZG 100 MG [facility] 04/26/2018 - 04/26/2018 Provider:Start: 04-26-2018 End: 06-07-0040RZBVFWICYB 100MG [facility] 04/26/2018 - 04/26/2018 Provider: End: 61-25-8637quxt 1 tablet by mouth once dailysertraline 100 mg oral tablet 12/14/2016 take 1 tablet (100 mg) by oral route once fglwm7619 ml sodium chloride 9 mg/ml injection (20 sources)Start: 91-57-6271saqp 20 mL intravenously every hour as mL/hr, intravenous, Continuous PRN, to maintain patency of lines, Starting on Sat12/30/24 at 2153Start: 47-84-2819uvlw 25 mL intravenously every hour as sjabzv28 mL, intravenous, at 100 mL/hr, Administer over 15 Minutes, As needed, line care, line care afterIVPB administration, Starting on Sat12/30/24 at 2153 Start: 62-77-254808 mL, intravenous, As needed, line care, Starting on Sat12/30/24 at 1547Start: 12-30-2024 End: 19-09-284465 mL, intravenous, Once in imaging, pre/post contrast, Starting on Sat12/30/24 at 1547, For 1 doseStart: 23-19-3623UvtprLIIpjh, at 100 mL/hr, CONTINUOUS, Starting on Sat11/19/24 at 1230Start: 19-41-527494 mL, IntraVENous, EVERY 12 HOURS SCHEDULED (2 times per day), First dose on Sat08/12/24 at 2100, U ntil DiscontinuedStart: 10-98-4880Hbmpp: 74-56-7115Kzprl: -40 mL, IntraVENous, EVERY 12 HOURS SCHEDULED [...] Central Line = 20 mL/lumenStart: 08-06-2024 End: 01-47-2432FwjzxLJCwfu, at 75 mL/hr, CONTINUOUS, Starting on Jenn [...] 12-04-2020 End: 10.9 % sodium chloride bolusStart: 72-98-275868 mL, Intravenous, EVERY 12 HOURS SCHEDULED (2 times per day), First dose on Sat03/18/20 at 2100, Recovery(Cath)Start: 35-60-6655mymo 10 mL intravenous route once10 mL, Intravenous, PRN, Line Care, Starting Sat03/18/20 at 1350 After every IV line use Recovery(Cath)Start: 80-86-1420ppybff chloride flush 0.9 % injection 10 mL Start: .9 % sodium chloride infusionStart: .9 % sodium chloride infusionStart: 97-74-426615 mL, Intravenous, EVERY 12 HOURS SCHEDULED (2 times per day), First dose on 07/18/19 at 0900Start: 43-32-5914fbje 10 mL intravenous route once as ykfcnh23 mL, Intravenous, PRN, Line Care, After every IV line use, Starting Sat07/18/19 at 0128Start: 07-18-2019 End: .9 % sodium chloride infusionStart: 07-17-2019 End: .9 % sodium chloride bolusStart: 04-21-2019 End: 31-21-7274Glbizhvwnec, at 75 mL/hr, CONTINUOUS, Starting Tu04/21/19 at 2300Start: 04-21-2019 End: .9 % sodium chloride bolusStart: 02-23-2019 End: .9 % sodium chloride bolusStart: 01-13-2019 End: .9 % sodium chloride bolusSucralfate (Carafate) 100 mg/mL suspension (2 sources)Start: 46-17-5873pfcu 1 mL by mouth every six hoursSucralfate (Carafate) 100 mg/mL suspension Active 10 ML PO Every 6 hours January 19, 2024 12:00amsulfamethoxazole 800 mg / trimethoprim 160 mg oral tablet (5 sources)Dihydrofolate Reductase Inhibitor Antibacterial, Sulfonamide AntimicrobialStart: 62-63-4037wcqogugvqbuypyki-trimethoprim (BACTRIM DS;SEPTRA DS) 800-160 MG per tablet 1 tabletStart: 02-12-2020 End: 81-01-2948cnwy 1 tablet by mouth twice dailysulfamethoxazole-trimethoprim (BACTRIM DS) 800-160 MG per tablet Take 1 tablet by mouth 2 times daily for 7 days 14 tablet 0 02/12/2020 02/19/2020 ActiveStart: 18-89-7172Kquaqrz DS 800-160 MG Oral Tablet 12/11/2018 Provider: Vahid Nagy CNPsuvorexant 5 mg oral tablet (1 source)Orexin Receptor AntagonistStart: 11-16-2024 End: 95-35-5324exsp 1 tablet by mouth once daily at bedtimeSuvorexant (BELSOMRA) 5 MG TABS Indications: Insomnia, unspecified type Take 1 tablet by mouth at be dtiga for 30 days. Max Daily Amount: 5 mg 30 tablet 11/16/2024 12/16/2024 Active levothyroxine sodium 0.075 mg oral tablet (20 sources)l-ThyroxineStart: 96-74-5570qzmb 150 ug by mouth before bkhhzeevv321 mcg, oral, Before breakfast, First dose on [...] APPLY TO NEONATESMonitor thyroid function tests weeklyStart: 31-63-6530qhei 1 tablet by mouth once daily in the morninglevothyroxine (SYNTHROID) 150 MCG tablet Indications: Hypothyroidism, unspecified type Take 1 tablet by mouth every morning 90 tablet 1 06/24/2024 ActiveStart: 27-43-1236bjqq 1 tablet by mouth once dailyLevothyroxine (Synthroid) 150 mcg tablet Active 150 MCG PO Daily January 19, 2024 12:00amStart: 36-80-6911kaao 1 tablet by mouth once daily in the morninglevothyroxine (SYNTHROID) 150 MCG tablet Indications: Hypothyroidism, unspecified type Take 1 tablet by mouth every morning 90 tablet 06/10/2023 ActiveStart: 67-99-2630whcq 1 tablet by mouth in the morninglevothyroxine (SYNTHROID) 150 MCG tablet Indications: Hypothyroidism, unspecified type Take 1 tablet by mouth in the morning. 90 tablet 1 11/13/2021 ActiveStart: 07-26-2019 End: 01-62-5728huxcmftgqzsjp (SYNTHROID) tablet 150 mcgStart: 07-26-2019 End: 64-42-2195dnbm 1 tablet by mouth once dailylevothyroxine (SYNTHROID) 150 MCG tablet Take 1 tablet by mouth daily 30 tablet 3 07/26/2019 ActiveStart: 01-66-3208wwoc 150 ug by mouth once ewjrb951 mcg, Oral, DAILY, First dose on 07/18/19 at 0900 Tube feeding (TF) interaction, obtain physician order to manage, recommend holding TF for 30 minutes before and after dose.Start: 98-87-4399lxss 1 tablet by mouth once dailylevothyroxine (SYNTHROID) 150 MCG tablet Take 1 tablet by mouth daily 30 tablet 3 07/26/2019 ActiveStart: 04-29-2018 End: 59-51-7995Auxhycyycevkz Sodium 112MCG Oral Tablet 08/27/2018 Provider: Vahid Nagy CNPStart: 04-26-2018 End: 90-70-6712ZYFXQAPQNYTRR 150 MCG [facility] 04/26/2018 - 04/26/2018 Provider: Start: 04-26-2018 End: 38-71-4879JECNYXRVCZVLO 150MCG [facility] 04/26/2018 - 04/26/2018 Provider:Start: 12-14-2016 End: 40-87-2171ITBBGZRHHWIUC 112 MCG [facility] 12/14/2016 - 12/14/2016 Provider: Start: 12-14-2016 End: 84-41-0557TFYSSHBOAOLVC 112MCG [facility] 12/14/2016 - 12/14/2016 Provider:Start: 72-56-8538gwhe 1 tablet by mouth once dailylevothyroxine 112 mcg oral tablet 12/14/2016 take 1 tablet (112 mcg) by oral route once dailyStart: 04-14-2015 End: 24-36-2438DCBEPHJRCEXIN 112 MCG [facility] 04/14/2015 - 04/14/2015 Provider: Start: 04-14-2015 End: 92-18-1296BRCHFJHELPQRO 112MCG [facility] 04/14/2015 - 04/14/2015 Provider:Start: 03-14-2015 End: 72-47-8050WEZUCCIWTGPEC 112 MCG MIS 03/14/2015 - 03/14/2015 Provider: Start: 03-14-2015 End: 11-53-9468MHYWSIOGXPQWK 112MCG [facility] 03/14/2015 - 03/14/2015 Provider: tiZANidine 4 mg oral tablet (20 sources)Central alpha-2 Adrenergic AgonistStart: 10-30-2018 End: 11-99-0525amLHJktzku (ZANAFLEX) tablet 4 mgStart: 04-10-2017 End: 97-83-2338Elfvbdbr 4MG OR TABS 04/10/2017 - 04/10/2017 Provider:Start: 12-14-2016 End: 29-84-4672omad 1 tablet by mouth every six hours as neededtiZANidine (ZANAFLEX) 4 MG tablet Take 1 tablet by mouth every 6 hours as needed (cramps) 90 tablet0 07/25/2019 ActiveStart: 12-14-2016 End: 51-31-0903Zofdspto 4 MG OR TABS 12/14/2016 - 12/14/2016 Provider:traMADol hydrochloride 50 mg oral tablet (1 source)Opioid AgonistStart: 03-21-2020 End: 40-37-9868ztwk 1 tablet by mouth every four hours [...] 03/24/2020 ActiveTrue Metrix Meter Device (20 sources)Start: 89-06-6551Tgpj Metrix Meter Device 08/12/2019 Provider: Vahid Nagy CNPStart: 05-07-2018 End: 38-06-4041Vbfq Metrix Meter Device 05/07/2018 - 08/12/2019 Provider: Vahid Nagy CNPStart: 53-36-5780Tjxc Metrix Meter Device 05/07/2018 Provider: Vahid Nagy CNPStart: 56-42-1764Soyd Metrix Meter Device 04/29/2018 Provider:True Metrix Meter Device (10 sources)Start: 55-26-6685Ahay Metrix Meter Device 08/12/2019 Provider: Vahid Nagy CNPStart: 05-07-2018 End: 95-81-1368Dhma Metrix Meter Device 05/07/2018 - 08/12/2019 Provider: Vahid Nagy CNPStart: 47-07-0505Xndz Metrix Meter Device 05/07/2018 Provider: Vahid Nagy CNPStart: 71-57-5743Cscl Metrix Meter Device 04/29/2018 Provider: varenicline 0.5 mg oral tablet (4 sources)Partial Cholinergic Nicotinic AgonistStart: 98-99-7273Obetjdo Starting Month Jose 0.5 MG X 11 &1 MG X 42 Oral Tablet 04/29/2018 Provider:24 hr venlafaxine 75 mg extended release oral capsule (14 sources)Serotonin and Norepinephrine Reuptake InhibitorStart: 77-55-6427ircc 150 mg by mouth once mg, oral, Daily, First dose on Jenn 12/31/24 at 1515, Look-alike/sound-alike medication - verify indication for use. Do not crush or chew.Start: 83-82-8559gkmq 75 mg by mouth once daily75 mg, oral, Daily, First dose on Jenn 12/31/24 at 1515, Look-alike/sound-alike medication - verify indication for use. Do not crush or chew.Start: 82-89-6820xsya 1 capsule by mouth every twenty-four hours in the morningvenlafaxine XR (EFFEXOR-XR) 150 mg 24 hr capsule Take 1 capsule (150 mg total) by mouth in the morning. 02/06/2024 ActiveStart: 03-40-5265nbbf 1 capsule by mouth every twenty-four hours in the morningvenlafaxine XR (EFFEXOR XR) 75 mg 24 hr capsule Take 1 capsule (75 mg total) by mouth in the morning. 02/06/2024 ActiveStart: 64-07-6749qgnd 1 capsule by mouth once dailyvenlafaxine (EFFEXOR XR) 150 MG extended release capsule Indications: Anxiety take 1 capsule by mouth once daily 90 capsule 09/02/2023 ActiveStart: 17-25-0229bfhv 1 capsule by mouth once dailyvenlafaxine (EFFEXOR XR) 75 MG extended release capsule Indications: Anxiety Take 1 capsule by mouth daily 90 capsule 1 06/17/2023 ActiveWalker Miscellaneous (15 sources)Start: 20-07-5831Thdsqr Miscellaneous 07/30/2019 Provider: Vahid Goreker Miscellaneous (1 source)Start: 00-51-3189Heoher Miscellaneous 07/30/2019 Provider: Vahid Nagy CNPzinc sulfate 220 mg oral capsule (2 sources)Start: 21-14-8331xdvq 1 capsule by mouth once dailyzinc sulfate (ZINCATE) 220 (50 Zn) MG 220 mg capsule - elemental zinc Take 1 capsule by mouth dailyfor 11 doses 10/27/2024 ActiveStart: 96-88-3203axyc 1 capsule by mouth once dailyzinc sulfate (ZINCATE) 220 (50 Zn) MG capsule Take 1 capsule by mouth daily for 7 days 7 capsule 0 04/23/2021 Activezolpidem tartrate 10 mg oral tablet (20 sources)gamma-Aminobutyric Acid-ergic AgonistStart: 09-02-2024 End: 73-07-8103jkoc 0.5 tablet by mouth once daily as needed for sleepzolpidem (AMBIEN) 10 MG tablet Indications: Insomnia, unspecified type Take 0.5 tablets by mouth nightly as needed for Sleep for up to 90 days. Max Daily Amount: 5 mg 90 tablet 11/16/2024 02/14/2025 ActiveStart: 07-27-2024 End: 60-89-0123zwhq 10 mg by mouth once daily as mg, Oral, NIGHTLY PRN, Starting on Sat08/12/24 at 1527, Until Discontinued, SleepStart: 30-01-3689jumj 1 tablet by mouth at bedtimezolpidem 5 MG tablet Take 5 mg by mouth at bedtime. 0 06/22/2021 ActiveStart: 88-78-0727Eicjxp 5 MG Oral Tablet 04/12/2020 Provider: Vahid Nagy CNPStart: 00-07-9986Djgwlk 5 MG Oral Tablet 04/12/2020 Provider: Vahid Nagy CNPStart: 04-29-2018 End: 64-78-3212Qyectn 5MG Oral Tablet 04/29/2018 - 06/27/2018 Provider:Start: 02-10-2018 End: 43-25-5943Zeowmj 5 MG OR TABS 02/10/2018 - 02/10/2018 Provider:Start: 08-06-2017 End: 60-71-7199Qwmzlq 5MG OR TABS 08/06/2017 - 08/06/2017 Provider: Completed/Discontinued Medications MedicationDrug Class(es)DatesSig (Normalized)Sig (Original)acetaminophen 325 mg / HYDROcodone bitartrate 5 mg oral tablet (20 sources)Opioid AgonistStart: 01-20-2024 End: 55-51-7980hokd 1 tablet by mouth three times dailyHydrocodone-Acetaminophen Discontinued 1 TAB PO Three times daily January 20, 2024 12:00am January 23, 2024 3:47pmStart: 02-09-2021 End: 12-30-1186WSTHOnlwahi-acetaminophen (NORCO) 5-325 MG per tablet 1 tablet Start: 04-12-2019 End: 21-13-2852TOJSFniibib-acetaminophen (NORCO) 5-325 MG per tablet 2 tablet Start: 43-89-2749sotwmhxtcvp-acetaminophen (NORCO) tablet 5-325 mg (STARTER PACK)Start: 04-26-2018 End: 20-44-4448MYCCCdidpjh-Acetaminophen 5-325 MG OR TABS 04/26/2018 - 04/26/2018 Provider: Conversion ProviderStart: 01-50-0131ordx 1 tablet by mouth every four hours as neededhydrocodone-acetaminophen 5-325 mg oral tablet 10/10/2017 take 1 tablet (5/325mg) by oral route q 4 hrs prn for pain(M79.606, M54.16) for 7 days changing back to oxycodoneStart: 10-10-2017 End: 82-86-5150VAUHKxxuyca-Acetaminophen 5-325 MG OR TABS 10/10/2017 - 10/10/2017 Provider:Start: 09-11-2017 End: 31-69-6965XVCLOiephlf-Acetaminophen 5-325 MG OR TABS 09/11/2017 - 09/11/2017 Provider:Start: 40-00-7532slct 1 tablet by mouth every eight hours as needed for painhydrocodone-acetaminophen 5-325 mg oral tablet 09/11/2017 take 1 tablet (5/325mg) by oral route every 8 hours as needed for severe chronic lumbar pain (M79.606, M54.16) for 30 day supplyStart: 08-16-2017 End: 36-86-3136QBAYDtolhzj-Acetaminophen 5-325 MG OR TABS 08/16/2017 - 08/16/2017 Provider:Start: 07-29-2017 End: 71-89-1962JHPGFeclegj-Acetaminophen 5-325 MG OR TABS 07/29/2017 - 07/29/2017 Provider:[id number] 200 actuat albuterol 0.09 mg/actuat metered dose inhaler (20 sources)beta2-Adrenergic AgonistStart: 50-20-9396rqjw 2 puff(s) by inhalation three times daily2 puff, Inhalation, 3 TIMES DAILY RESP, First dose (after last modification) on Sat08/12/24 at 1630, Until Discontinued, Initiate RT Bronchodilator Protocol: Yes - Inpatient ProtocolStart: 51-26-8575cttzcftiv (PROVENTIL HFA;VENTOLIN HFA) 90 mcg/actuation inhaler Take [...] for wheezing 8.5 g 5 02/06/2024 ActiveStart: 92-45-4029mebs 2 puff(s) by mouth four times daily as neededalbuterol (PROVENTIL HFA;VENTOLIN HFA) 90 mcg/actuation inhaler Take 2 puffs by mouth 4 (four) times a day as needed. 02/06/2024 ActiveStart: 61-46-3060jtrr 2 puff(s) by mouth four times daily for wheezingalbuterol sulfate HFA (PROVENTIL;VENTOLIN;PROAIR) 108 (90 Base) MCG/ACT inhaler inhale 2 puffs by mouth and INTO THE LUNGS four times a day if needed for wheezing 8.5 g 5 08/13/2023 ActiveStart: 85-63-5933lwsr 2.5 mg by inhalation every six hours as needed for wheezing and chronic obstructive pulmonary disease and chronic obstructive pulmonary diseasealbuterol (PROVENTIL,VENTOLIN) 2.5 mg /3 mL (0.083 %) nebulizer solution Indications: Chronic obstructive pulmonary disease, unspecified COPD type ([facility] Inhale 3 mL (2.5 mg total) by nebulizationevery 6 (six) hours as needed for wheezing. 75 mL 03/18/2024Start: 99-99-6641nstnyhmfj (PROVENTIL) (2.5 MG/3ML) 0.083% nebulizer solution Take 3 mLs by nebulization every 6 hours as needed for Wheezing or Shortness of Breath 1 each 5 05/09/2021 ActiveStart: 03-17-20202.5 mg, Nebulization, EVERY 6 HOURS PRN, Wheezing, Starting Jenn 03/17/20 at 2040Start: 27-81-2839rejhojspz (PROVENTIL) nebulizer solution 2.5 mgStart: 04-26-2019 End: 43-89-4010fvilfcxkp (PROVENTIL) (2.5 MG/3ML) 0.083% nebulizer solution Take 3 mLs by nebulization every 6 hours as needed for Wheezing 100 vial 0 07/25/2019 ActiveStart: 91-12-1563jpgwbspxz (PROVENTIL) nebulizer solution 0.63 mgStart: 12-65-8470ztxkoxmwb (PROVENTIL) nebulizer solution 2.5 mgStart: 06-09-2018 End: 89-73-9057jnyaenyxh (ACCUNEB) 0.63 MG/3ML nebulizer solution Take 3 mLs by nebulization 3 times daily 270 mL 0 06/09/2018 04/26/2019 Discontinued (Stop Taking at Discharge)Start: 04-29-2018 End: 71-27-8933Eojsjeujr Sulfate (2.5 MG/3ML)0.083% Inhalation Nebulization solution 06/10/2018 Provider: Vahid Nagy CNPStart: 04-29-2018 End: 27-99-2502WgjMdn HFA 108 (90 Base) MCG/ACT Inhalation Aerosol Solution 04/14/2019 Provider: Vahid Nagy CNPStart: 04-29-2018 End: 31-75-8270MktKha HFA 108 (90 Base) MCG/ACT Inhalation Aerosol Solution 04/14/2019 Provider: Vahid Nagy CNPStart: 04-26-2018 End: 58-11-5423WRMCBQPER SULFATE 2.5 mg /3 ML (0.0 MISC 04/26/2018 - 04/26/2018 Provider:Start: 04-26-2018 End: 49-46-4116NGOURRCPL SULFATE 2.5 mg/3 ML (0.0 MIS 04/26/2018 - 04/26/2018 Provider:Start: 15-58-8425guri 1-2 puff(s) by inhalation every six hours as needed for wheezingProAir HFA 90 mcg/actuation inhalation HFA aerosol inhaler 09/11/2017 inhale 1 - 2 puffs (90 - 180 mcg) by inhalation route every 6 hours as needed for wheezing/ shortness of breathStart: 09-11-2017 End: 21-04-3174QKAXZV HFA 90MCG/ACTUAT MISC 09/11/2017 - 09/11/2017 Provider: Start: 66-59-2396ghpp 1-2 puff(s) by inhalation every six hours as needed for wheezingProAir HFA 90 mcg/actuation inhalation HFA aerosol inhaler 09/11/2017 inhale 1 - 2 puffs (90 - 180 mcg) by inhalation route every 6 hours as needed for wheezing/ shortness of breathStart: 08-20-9829oetm 1-2 puff(s) by inhalation every six hours as needed for wheezingProAir HFA 90 mcg/actuation inhalation HFA aerosol inhaler 09/11/2017 inhale 1 - 2 puffs (90 - 180 mcg) by inhalation route every 6 hours as needed for wheezing/ shortness of breathStart: 12-14-2016 End: 54-82-3598GVJWWDAIA SULFATE 2.5 mg /3 ML (0.0 [facility] 12/14/2016 - 12/14/2016 Provider:Start: 12-14-2016 End: 65-47-0650SKICALLCB SULFATE 2.5 mg/3 ML (0.0 [facility] 12/14/2016 - 12/14/2016 Provider:Start: 01-45-4764cbxr 3 mL by inhalation four times daily as needed albuterol sulfate 2.5 mg /3 mL (0.083 %) inhalation solution for nebulization 12/14/2016 inhale 3 milliliters (2.5 mg) by nebulization route 4 times per day as neededStart: 09-08-2016 End: 14-16-9713vswlpntdj (PROVENTIL) (5 MG/ML) 0.5% nebulizer solution Take 0.5 mLs by nebulization every 6 hours as needed for Wheezing 30 vial 0 09/08/2016 04/26/2019 Discontinued (Stop Taking at Discharge)Start: 04-14-2015 End: 27-08-1451QVQHTUKFW SULFATE 2.5 mg /3 ML (0.0 MISC 04/14/2015 - 04/14/2015 Provider:Start: 04-14-2015 End: 83-43-9581JDHZNIIRF SULFATE 2.5 mg/3 ML (0.0 MISC 04/14/2015 - 04/14/2015 Provider:take 2.5 mg by inhalation every two hours as needed for wheezing albuterol (PROVENTIL,VENTOLIN) 2.5 mg /3 mL (0.083 %) nebulizer solution Inhale 3 mL (2.5 mg total)by nebulization every 2 (two) hours as needed for wheezing. Q2hr prn via neb shortness of breath ActiveALCOHOL PREP PADS MISC (20 sources)Start: 12-14-2016 End: 52-78-2302FFLHFVL PREP PADS MISC 12/14/2016 - 12/14/2016 Provider:ALCOHOL PREP PADS MISC (10 sources)Start: 12-14-2016 End: 91-60-5850CQARBLB PREP PADS MISC 12/14/2016 - 12/14/2016 Provider: ALPRAZolam 0.5 mg oral tablet (20 sources)BenzodiazepineStart: 04-26-2018 End: 15-30-3178GASUAJxvww 0.5 MG OR TABS 04/26/2018 - 04/26/2018 Provider: Conversion Provider End: 29-44-7833ytpnocjvcc 0.5 mg oral tablet 12/14/2016Aspir-81 OR TBEC (1 source)Start: 04-26-2018 End: 50-24-2885Kbzza-81 OR TBEC 04/26/2018 - 04/26/2018 Provider: Conversion ProviderAspirin 81 OR TBEC (4 sources)Start: 04-26-2018 End: 46-46-7126Ixjksgx 81 OR TBEC 04/26/2018 - 04/26/2018 Provider: Conversion Provideratorvastatin 40 mg oral tablet (20 sources)HMG-CoA Reductase InhibitorStart: 02-25-2018 End: 96-34-6964Btdughf 40MG OR TABS 04/26/2018 - 04/26/2018 Provider: Conversion ProviderBD Thermometer Miscellaneous (18 sources)Start: 05-01-2019 End: 15-62-1942AI Thermometer Miscellaneous 05/01/2019 - 09/24/2019 Provider: Vahid Nagy CNPStart: 70-44-5167QN Thermometer Miscellaneous 05/01/2019 Provider: Vahid CASTANEDA Thermometer Miscellaneous (1 source)Start: 05-01-2019 End: 36-41-2261ZH Thermometer Miscellaneous 05/01/2019 - 09/24/2019 Provider: Vahid Nagy CNPbreath-actuated 120 actuat beclomethasone dipropionate 0.08 mg/actuat metered dose inhaler (20 sources)CorticosteroidStart: 04-09-2022 End: 81-09-4024zwue 1 puff(s) by inhalation at bedtimebeclomethasone HFA (QVAR REDIHALER) 80 mcg/actuation inhaler Inhale 1 puff in the morning and at bedtime. 04/09/2022 04/17/2024 Discontinued (Therapy completed)Start: 63-51-0100jwxn 1 puff(s) by inhalation in the morningbeclomethasone (QVAR REDIHALER) 80 MCG/ACT AERB inhaler Indications: Chronic obstructive pulmonary disease, unspecified COPD type (HCC) Inhale 1 puff into the lungs in the morning and 1 puff in the ev ening. 1 each 5 04/09/2022 ActiveStart: 16-43-8830smpi 1 puff(s) by inhalation twice dailybeclomethasone HFA 80 MCG/ACT Aerosol, Breath Activated inhaler Inhale 1 puff 2 times daily. 0 04/09/2022 ActiveStart: 05-09-2021 End: 71-91-4251bloj 2 puff(s) by inhalation twice dailybeclomethasone (QVAR) 80 MCG/ACT inhaler Indications: Chronic obstructive pulmonary disease, unspecified COPD type (HCC) Inhale 2 puffs into the lungs 2 times daily 1 each 5 05/09/2021 06/22/2021 Discontinued (LIST CLEANUP)Start: 66-73-1518ftte 2 puff(s) by inhalation twice dailybeclomethasone (QVAR) 80 MCG/ACT inhaler Indications: Chronic obstructive pulmonary disease, unspecified COPD type (HCC) Inhale 2 puffs into the lungs 2 times daily 1 each 5 03/23/2021 ActiveStart: 07-25-2019 End: 41-06-9660wooh 1 puff(s) by inhalation twice dailybeclomethasone (QVAR) 80 MCG/ACT inhaler Inhale 1 puff into the lungs 2 times daily 1 Inhaler 3 07/01 ActiveStart: 04-29-2018 End: 49-13-8787Htjq RediHaler 80MCG/ACT Inhalation Aerosol Breath Activated 09/30/2018 Provider: Vahid Nagy CNPStart: 08-09-2017 End: 51-00-2677VJPS 80MCG/ACTUAT MISC 08/09/2017 - 08/09/2017 Provider:Start: 68-47-2336gzfp 1 puff(s) by inhalation twice dailyQvar 80 mcg/actuation inhalation aerosol 08/09/2017 inhale 1 puff (80 mcg) by inhalation route 2 times per dayStart: 75-29-8623qnsv 1 puff(s) by inhalation twice dailyQvar 80 [...] (20 sources)Angiotensin Converting Enzyme InhibitorStart: 01-12-2021 End: 61-16-0184tikgahmfvo (LOTENSIN) 40 MG tabletStart: 04-26-2018 End: 13-01-3959LBZIFQQNAE 10 mg MISC 04/26/2018 - 04/26/2018 Provider:Start: 12-14-2016 End: 39-47-5382CWOZOEGYXG 10 mg MISC 12/14/2016 - 12/14/2016 Provider:Start: 73-64-5183sntq 1 tablet by mouth once dailybenazepril 10 mg oral tablet 12/14/2016 take 1 tablet (10 mg) by oral route once dailyBlood Pressure Cuff (11 sources)Start: 69-94-6188Clxql Pressure Cuff miscellaneous misc 08/14/2017 use as directed to monitor blood pressure (Dx I10)BLOOD PRESSURE CUFF MISC (20 sources)Start: 08-14-2017 End: 98-53-1650UTVYD PRESSURE CUFF MISC 08/14/2017 - 08/14/2017 Provider:BLOOD PRESSURE CUFF MISC (5 sources)Start: 08-14-2017 End: 64-83-6269INRBO PRESSURE CUFF MISC 08/14/2017 - 08/14/2017 Provider:Blood Pressure Cuff Miscellaneous (20 sources)Start: 04-29-2018 End: 82-00-5546Pctwb Pressure Cuff Miscellaneous 04/29/2018 - 09/24/2019 Provider:Start: 90-87-5455Lvxec Pressure Cuff Miscellaneous 04/29/2018 Provider: Blood Pressure Cuff Miscellaneous (5 sources)Start: 04-29-2018 End: 61-65-7736Quyqz Pressure Cuff Miscellaneous 04/29/2018 - 09/24/2019 Provider:Start: 32-57-2250Yphqz Pressure Cuff Miscellaneous 04/29/2018 Provider: 60 actuat budesonide 0.16 mg/actuat / formoterol fumarate 0.0045 mg/actuat metered dose inhaler (13 sources)Corticosteroid, beta2-Adrenergic AgonistStart: 19-92-0948jope 2 puff(s) by mouth twice daily2 puff, Inhalation, 2 TIMES DAILY, First dose on Sat08/12/24 at 2100, Until Discontinued, Rinse mouth out with water (without swallowing) after every dose.Start: 93-62-6187ouml 2 puff(s) by mouth twice daily2 puff, Inhalation, 2 TIMES DAILY RESP, First dose on Sat08/06/24 at 2000, Until Discontinued, [place] out with water (without swallowing) after every dose.Start: 05-83-1795txrf 2 puff(s) by inhalation in the morningbudesonide- formoteroL (SYMBICORT) 160-4.5 mcg/actuation inhaler Inhale 2 puffs in the morning and 2puffs before bedtime. 02/06/2024Start: 18-99-1877vvew 2 puff(s) by inhalation in the morningbudesonide-formoteroL (SYMBICORT) 160-4.5 mcg/actuation inhaler Inhale 2 puffs in the morning and 2puffs before bedtime. 02/06/2024 SuspendedStart: 44-94-7709mxvi 2 puff(s) by inhalation twice dailybudesonide- formoterol (SYMBICORT) 160-4.5 MCG/ACT AERO Indications: COPD with acute exacerbation (HCC) Inhale 2 puffs into the lungs 2 times daily 10.2 g 3 02/06/2024 ActiveStart: 34-27-3865ocoz 2 puff(s) by inhalation in the morning budesonide-formoteroL (SYMBICORT) 160-4.5 mcg/actuation inhaler Inhale 2 puffs in the morning and 2puffs before bedtime. 02/06/2024 ActiveStart: 51-01-7453uzpc 2 puff(s) by inhalation twice dailybudesonide-formoterol (SYMBICORT) 160-4.5 MCG/ACT AERO Inhale 2 puffs into the lungs 2 times daily 10.2 g 3 08/13/2023 ActiveCALCIUM 600 600 mg calcium (1,500 MG) MISC (20 sources)Start: 08-16-2017 End: 61-92-3431BKUNHDL 600 600 mg calcium (1,500 MG) MISC 08/16/2017 - 08/16/2017 Provider:CALCIUM 600 600 mg calcium (1,500 MG) MISC (1 source)Start: 08-16-2017 End: 09-36-5836MNWGLEU 600 600 mg calcium (1,500 MG) MISC 08/16/2017 - 08/16/2017 Provider:calcium carbonate 1500 mg oral tablet (17 sources)Start: 35-89-8835fkcc 1 tablet by mouth twice dailyCalcium 600 600 mg calcium (1,500 mg) oral tablet 08/16/2017 take 1 tablet by oral route twice dailyCalcium Carbonate-Vit D-Min (CALCIUM 1200 PO) (2 sources)Start: 08-16-2017 End: 01-04-9940Bkfimjw Carbonate-Vit D-Min (CALCIUM 1200 PO) Take by mouth 08/16/2017 08/06/2024 Discontinued (LIST CLEANUP)Start: 15-04-6482Cxlxrco Carbonate-Vit D-Min (CALCIUM 1200 PO) Take by mouth 08/16/2017 Activecefdinir 300 mg oral capsule (20 sources)Cephalosporin AntibacterialStart: 03-20-2019 End: 35-05-9222Qhbtfecu 300 MG Oral Capsule 03/20/2019 - 03/20/2019 Provider: Vahid Vasqueztirizine hydrochloride 10 mg oral tablet (20 sources)Histamine-1 Receptor AntagonistStart: 08-27-2018 End: 17-87-8952VtiURW Allergy 10 MG Oral Tablet 12/11/2018 - 07/09/2019 Provider: Vahid Nagy CNPChantix Starting Month Box (1 source)Start: 80-07-6066Hharbwd Starting Month Box 0.5 mg (11)- 1 mg (42) oral tablets,dose pack 03/26/2018 take as directedCHANTIX STARTING MONTH BOX 0.5 mg (11)- 1 MG (42) MISC (20 sources)Start: 03-26-2018 End: 75-56-2465BJRAXJZ STARTING MONTH BOX 0.5 mg (11)- 1 MG (42) MISC 03/26/2018 - 03/26/2018 Provider:CHANTIX STARTING MONTH BOX 0.5 mg (11)- 1 MG (42) MISC (1 source)Start: 03-26-2018 End: 55-91-3622FXRWSJK STARTING MONTH BOX 0.5 mg (11)- 1 MG (42) MISC 03/26/2018 - 03/26/2018 Provider:Chantix Starting Month Box 0.5 mg (11)- 1 mg (42) oral tablets,dose pack (1 source)Start: 81-49-8588Heefqvz Starting Month Box 0.5 mg (11)- 1 mg (42) oral tablets,dose pack 03/26/2018 take as directedCHANTIX STARTING MONTH BOX 0.5 mg (11)-1 MG (42) MISC (4 sources)Start: 03-26-2018 End: 52-46-5831QGLIMRE STARTING MONTH BOX 0.5 mg (11)-1 MG (42) MISC 03/26/2018 - 03/26/2018 Provider:CHANTIX STARTING MONTH BOX 0.5 mg (11)-1 MG (42) MISC (4 sources)Start: 03-26-2018 End: 90-38-2454ZNJQNUJ STARTING MONTH BOX 0.5 mg (11)-1 MG (42) [facility] 03/26/2018 - 03/26/2018 Provider:chlorhexidine gluconate 1.2 mg/ml mouthwash (6 sources)Start: 85-65-3599cneq 15 mL by mouth twice daily15 mL, Mouth/Throat, 2 TIMES DAILY, First dose on Sat08/12/24 at 2100, Until Discontinued, Rinse and spit. Do not swallow.Start: 36-63-8817uchl 15 mL by mouth twice daily15 mL, Mouth/Throat, 2 TIMES DAILY, First dose on Jenn 08/06/24 at 2100, Until Discontinued, Rinse andspit. Do not swallow.Start: 14-15-3004odub 15 mL by mouth twice dailychlorhexidine (PERIDEX) 0.12 % solution Indications: Mouth sore swish and spit 15ml BY MOUTH TWICE DAILY 473 mL 07/22/2024 ActiveStart: 07-18-2019 End: 79-26-2226jmdbydvhrhocl (PERIDEX) 0.12 % solution 15 mLchlorpheniramine maleate 4 mg oral tablet (20 sources)Histamine-1 Receptor AntagonistStart: 04-29-2018 End: 81-22-5476Tqeuz-Trimeton 4MG Oral Tablet 04/29/2018 - 04/29/2018 Provider: Start: 01-20-2018 End: 01-22-7318Tpyoe-Trimeton 4MG OR TABS 01/20/2018 - 01/20/2018 Provider: cilostazol 100 mg oral tablet (20 sources)Phosphodiesterase 3 InhibitorStart: 04-26-2018 End: 14-43-4231Ifuedougkw 100 MG OR TABS 04/26/2018 - 04/26/2018 Provider: Conversion ProviderStart: 04-14-2015 End: 54-00-1788Xoipfaztey 100MG OR TABS 04/14/2015 - 04/14/2015 Provider:200 ml ciprofloxacin 2 mg/ml injection (8 sources)Quinolone AntimicrobialStart: 07-19-2021 End: 49-75-6370cxkappadvcrvd (CIPRO) 400 mg in dextrose 5% premix IVPBStart: 26-76-2730Rocah 250 MG Oral Tablet 11/16/2019 Provider: Vahid Nagy CNPStart: 07-23-2019 End: 40-15-1655xuufbkdqmionm (CIPRO) tablet 500 mgStart: 07-20-2019 End: 15-17-3888dncwxtwiqpdyh (CIPRO) IVPB 400 mgStart: 12-92-0646Bmoef 250MG Oral Tablet 09/30/2018 Provider: Vahid Nagy CNPclindamycin (20 sources)Lincosamide AntibacterialStart: 09-18-2017 End: 64-21-8380ZYKKGCHHTQO HCL 300 MG MISC 09/18/2017 - 09/18/2017 Provider: Start: 09-18-2017 End: 20-50-1465XBAUNLUVJPJ HCL 300MG MISC 09/18/2017 - 09/18/2017 Provider: Start: 09-18-2017 End: 38-56-7565gatp 1 capsule by mouth twice dailyclindamycin HCl 300 mg oral capsule 09/18/2017 09/25/2017 take 1 capsule (300 mg) by oral route 2 times per day for 7 dayscloNIDine hydrochloride 0.1 mg oral tablet (20 sources)Central alpha-2 Adrenergic AgonistStart: 04-26-2018 End: 44-04-7240kaaVVOnwc HCl 0.1 MG OR TABS 04/26/2018 - 04/26/2018 Provider: Conversion ProviderStart: 04-14-2015 End: 46-05-5805thgLQHhda HCl 0.1MG OR TABS 04/14/2015 - 04/14/2015 Provider: clopidogrel 75 mg oral tablet (20 sources)P2Y12 Platelet InhibitorStart: 01-19-2024 End: 80-19-5767rxop 1 tablet by mouth once dailyClopidogrel (Plavix) 75 mg tablet Discontinued 75 MG PO Daily January 19, 2024 12:00am January 23, 2024 3:47pmStart: 71-95-4991ivpg 1 tablet by mouth in the morningclopidogreL (PLAVIX) 75 mg tablet Take 1 tablet (75 mg total) by mouth in the morning. 30 tablet 09/26/2022 SuspendedStart: 73-99-8623zgzl 1 tablet by mouth once daily clopidogrel 75 MG tablet Take 75 mg by mouth daily. 0 06/22/2021 ActiveStart: 81-06-9992ylnt 1 tablet by mouth once dailyclopidogrel (PLAVIX) 75 MG tablet TAKE ONE TABLET BY MOUTH DAILY 90 tablet 3 05/31/2020 ActiveStart: 07-26-2019 End: 22-83-6634mfvz 1 tablet by mouth once dailyclopidogrel (PLAVIX) 75 MG tablet Take 1 tablet by mouth daily 30 tablet 3 07/26/2019 ActiveStart: 04-29-2018 End: 99-09-6549fvnq 75 mg by mouth once daily75 mg, Oral, DAILY, First dose on Sat04/22/19 at 0900Start: 02-24-2018 End: 82-58-8368Bbdgqf 75MG OR TABS 04/26/2018 - 04/26/2018 Provider: Parker Lovelace Nicotine 14MG/24HR Transdermal Patch 24 Hour (20 sources)Start: 07-28-2018 End: 14-75-7702UZR Nicotine 14MG/24HR Transdermal Patch 24 Hour 07/28/2018 - 09/24/2019 Provider: Vahid Nagy CNPStart: 94-74-3840YBB Nicotine 14MG/24HR Transdermal Patch 24 Hour 07/28/2018 Provider: Vahid DOMINGUEZ Nicotine 14MG/24HR Transdermal Patch 24 Hour (1 source)Start: 07-28-2018 End: 68-72-8747GYB Nicotine 14MG/24HR Transdermal Patch 24 Hour 07/28/2018 - 09/24/2019 Provider: Vahid DOMINGUEZ Nicotine 21MG/24HR Transdermal Patch 24 Hour (20 sources)Start: 06-27-2018 End: 01-68-7393XJI Nicotine 21MG/24HR Transdermal Patch 24 Hour 06/27/2018 - 07/28/2018 Provider: Vahid DOMINGUEZ Nicotine 21MG/24HR Transdermal Patch 24 Hour (2 sources)Start: 06-27-2018 End: 87-11-2212NUV Nicotine 21MG/24HR Transdermal Patch 24 Hour 06/27/2018 - 07/28/2018 Provider: Vahid Nagy CNPStart: 88-31-1857FRH Nicotine 21MG/24HR Transdermal Patch 24 Hour 06/27/2018 Provider: Vahid Campbellamethasone phosphate 10 mg/ml injectable solution (20 sources)CorticosteroidStart: 11-19-2024 End: 56 mg, IntraVENous, ONCE, On Sat11/19/24 at 1400, For 1 doseStart: 12-14-2016 End: 39-62-5341Frcjjleobbzll 4MG OR TABS 12/14/2016 - 12/14/2016 Provider: dextromethorphan hydrobromide 3 mg/ml / promethazine hydrochloride 1.25 mg/ml oral solution (20 sources)Phenothiazine, Uncompetitive I-axvxmw-N-aspartate Receptor Antagonist, Sigma-1 AgonistStart: 05-20-2019 End: 78-05-4442Eugiqdmuafoh-DM 6.25-15 MG/5ML Oral Syrup 06/17/2019 - 07/09/2019 Provider: Vahid Nagy CNPStart: 05-01-2019 End: 14-10-2490Umoavfwbnrni-DM 6.25-15 MG/5ML Oral Syrup 05/01/2019 - 05/01/2019 Provider: Vahid Nagy CNPdiazePAM 5 mg oral tablet (1 source)BenzodiazepineStart: 06-15-2019 End: 65-50-5946ejaupCTH (VALIUM) tablet 5 mgdiclofenac sodium 0.01 mg/mg topical gel (3 sources)Nonsteroidal Anti-inflammatory DrugStart: 03-23-2021 End: 75-66-6523mihmsvgdoi sodium (VOLTAREN) 1 % GEL Indications: Chronic pain of right knee , Chronic right hip pain , Sacral pain , Lumbar back pain with radiculopathy affecting right lower extremity Apply 4 g topically 4 times daily 350 g 0 03/23/2021 06/22/2021 Discontinued (LIST CLEANUP)DULoxetine (20 sources)Serotonin and Norepinephrine Reuptake InhibitorStart: 12-14-2016 End: 04-49-0444BTYMWLTEQZ 60 MG [facility] 12/14/2016 - 12/14/2016 Provider:Start: 12-14-2016 End: 83-69-5953PSMVFGDQLU 60MG [facility] 12/14/2016 - 12/14/2016 Provider:Start: 82-72-6450qhwx 1 capsule by mouth once dailyduloxetine 60 mg oral capsule,delayed release(DR/EC) 12/14/2016 take 1 capsule (60 mg) by oral route once daily2 ml famotidine 10 mg/ml injection (4 sources)Histamine-2 Receptor AntagonistStart: 01-17-2021 End: 24-70-1689cfcylxqlph (PEPCID) injection 20 mgStart: 07-22-2019 End: 62-76-1898vkpzvfhwbq (PEPCID) tablet 20 mgStart: 07-18-2019 End: 17-79-4084qfezowuxix (PEPCID) injection 20 mgStart: 34-07-8679eqxj 20 mg by mouth twice daily20 mg, Oral, 2 TIMES DAILY, [place]04[place] [address] ml fentaNYL 0.05 mg/ml injection (2 sources)Opioid AgonistStart: 07-20-2019 End: 84-60-0618xpcpzANW (SUBLIMAZE) injection 50 mcgStart: 07-18-2019 End: 26-74-6226msztjUKT (SUBLIMAZE) injection 50 mcgfentaNYL 20 mcg/mL Infusion (1 source)Start: 07-18-2019 End: 92-70-2984jsjizDIH 20 mcg/mL Infusion2 ml furosemide 10 mg/ml injection (18 sources)Loop DiureticStart: 12-31-2024 End: 89-60-568359 mg, intravenous, Once, On [facility] 12/31/24 at 1515, For 1 dose, Look-alike/sound-alike medication - verify indication for use. IVP rate = 20 mg/minStart: 02-06-2024 End: 59-09-9773mxoq 20 mg by mouth once daily20 mg, oral, Daily, First dose on [facility] 12/31/24 at 0900, Look-alike/sound-alike medication - verify indication for use.Start: 89-21-0918lqny 1 tablet by mouth once dailyfurosemide (LASIX) 20 MG tablet Indications: Primary hypertension take 1 tablet by mouth once daily90 tablet 1 10/02/2023 ActiveStart: 32-37-8259ewpl 1 tablet by mouth once daily furosemide (LASIX) 20 MG tablet Take 1 tablet by mouth daily 30 tablet 0 05/09/2021 ActiveStart: 71-15-4816beys 1 tablet by mouth once dailyfurosemide (LASIX) 20 MG tablet Take 1 tablet by mouth daily 30 tablet 0 03/19/2021 Active Start: 52-63-8958vbyvkkksch (LASIX) injection 40 mgStart: 03-13-2020 End: 77-79-7687yvra 1 tablet by mouth twice dailyfurosemide (LASIX) 20 MG tablet Take 1 tablet by mouth 2 times daily 8 tablet 0 03/13/2020 03/17/2020 Discontinued (Therapy completed)Start: 07-19-2019 End: 36-67-5257oaxrgdihwh (LASIX) injection 40 mgStart: 07-17-2019 End: 23-61-3508xuodssrgpx (LASIX) injection 40 mgINCONTINENCE BRIEFS 100 MISC (20 sources)Start: 01-28-2017 End: 82-03-2129OSEEUEJWBJHH BRIEFS 100 MISC 01/28/2017 - 01/28/2017 Provider: INCONTINENCE BRIEFS 100 MISC (5 sources)Start: 01-28-2017 End: 91-07-7778QTVPVHHAPPGB BRIEFS 100 MISC 01/28/2017 - 01/28/2017 Provider: Incontinence Pads (17 sources)Start: 33-13-5034Obqhlfjkbbtg Pads 08/14/2017 Use for incontinence (dx: R35.1, N30.1)Start: 36-14-2698Ynjhlrosisqc Pads 08/14/2017 Use for incontinence (dx: R35.1, N30.1)INCONTINENCE PADS 100 MISC (20 sources)Start: 07-30-2017 End: 22-38-1637EDESFXTVWBUY PADS 100 MISC 07/30/2017 - 07/30/2017 Provider: Start: 01-28-2017 End: 67-85-2731TZWGZLJCMWFY PADS 100 MISC 01/28/2017 - 01/28/2017 Provider: INCONTINENCE PADS 100 MISC (10 sources)Start: 07-30-2017 End: 88-79-8502ZXHJPUJFVVGX PADS 100 MISC 07/30/2017 - 07/30/2017 Provider: Start: 01-28-2017 End: 30-33-6471RYLDJVWVLUJN PADS 100 MISC 01/28/2017 - 01/28/2017 Provider: INCONTINENCE PADS MISC (20 sources)Start: 08-14-2017 End: 79-07-6987ULMSDCKFXLVX PADS MISC 08/14/2017 - 08/14/2017 Provider: INCONTINENCE PADS MISC (5 sources)Start: 08-14-2017 End: 12-06-9534BKJPKODEVLJB PADS MISC 08/14/2017 - 08/14/2017 Provider:iohexoL (OMNIPAQUE) 350 mg iodine/mL injection 100 mL (1 source)Start: 12-30-2024 End: mL, intravenous, Once in imaging, contrast, Starting on Sat12/30/24 at 1547, For 1 dose, VESICANT (RED)Iopamidol (2 sources)Radiographic Contrast AgentStart: 04-12-2019 End: 63-02-6295hjkafvqvl (ISOVUE-370) 76 % injection 75 mLStart: 02-23-2019 End: 62-69-6964wcuufkzfu (ISOVUE-370) 76 % injection 120 mLiopamidol (ISOVUE- 370) 76 % injection 100 mL (1 source)Start: 08-06-2024 End: 34-76-7032hqki 1 dose intravenously njgp290 mL, IntraVENous, IMG ONCE PRN, 1 dose, Starting on Jenn 08/06/24 at 1602, Until Jenn 08/06/24 at 1607, Otheriopamidol (ISOVUE-370) 76 % injection 18 mL (2 sources)Start: 01-04-2022 End: 68-20-1267rkqtektmp (ISOVUE-370) 76 % injection 18 mLStart: 06-20-2021 End: 55-26-4562sxvjisqdh (ISOVUE-370) 76 % injection 18 mLiopamidol (ISOVUE-370) 76 % injection 70 mL (1 source)Start: 03-17-2020 End: 17-95-7609sqioqqfyf (ISOVUE-370) 76 % injection 70 mLiopamidol (ISOVUE-370) 76 % injection 75 mL (7 sources)Start: 01-04-2022 End: 56-45-1180isktgotgw (ISOVUE-370) 76 % injection 75 mLStart: 06-20-2021 End: 84-72-6453xjttwemgx (ISOVUE-370) 76 % injection 75 mLStart: 03-17-2021 End: 23-45-4083gbritwnfl (ISOVUE-370) 76 % injection 75 mLStart: 12-04-2020 End: 96-55-4161qcfqglslh (ISOVUE-370) 76 % injection 75 mLStart: 10-06-2019 End: 71-27-6560ummudfqec (ISOVUE-370) 76 % injection 75 mLStart: 07-17-2019 End: 60-10-0733wpkwepxdk (ISOVUE-370) 76 % injection 75 mLStart: 04-21-2019 End: 25-62-9634imfoddgub (ISOVUE-370) 76 % injection 75 mLisopropyl alcohol 0.7 ml/ml medicated pad (17 sources)Start: 70-30-3469Uxoapgz Prep Pads topical pads, medicated 12/14/2016 use for blood sugar testing TID (dx: E11.9)24 hr isosorbide mononitrate 60 mg extended release oral tablet (20 sources)Nitrate VasodilatorStart: 87-13-6859mvlx 30 mg by mouth once daily30 mg, Oral, DAILY, First dose (after last modification) on Sat08/09/24 at 0900, Until Discontinued, Do not crush or chew.Start: 02-06-2024 End: 56-49-5612ymax 60 mg by mouth once daily60 mg, Oral, DAILY, First dose on Sat08/12/24 at 1545, Until Discontinued, Do not crush or chew.Start: 01-19-2024 take 60 mg by mouth once dailyIsosorbide Mononitrate Active 60 MG PO Daily January 19, 2024 12:00amStart: 98-96-3667eunr 1 tablet by mouth once daily isosorbide mononitrate (IMDUR) 60 MG extended release tablet Indications: Primary hypertension Take1 tablet by mouth daily 90 tablet 10/18/2023 Active Start: 05-04-2019 End: 28-27-7932hxps 1 tablet by mouth once dailyisosorbide mononitrate (IMDUR) 30 MG extended release tablet Take 1 tablet by mouth daily 30 tablet3 07/25/2019 Active1 ml ketorolac tromethamine 30 mg/ml cartridge (20 sources)Nonsteroidal Anti-inflammatory Drug, Cyclooxygenase InhibitorStart: 07-29-2022 End: 35-71-1251jfoktpnft (TORADOL) injection 30 mgStart: 56-61-0785Nqwlgzzck Tromethamine 60 MG/2ML IM SOLN 01/12/2019 Elena Malik CNPComment on above: Patient tolerated therapy well. No signs or symptoms of adverse reactions. lancets (11 sources)Start: 74-55-2932taiyzse 30 gauge miscellaneous [facility] 12/14/2016 use for blood sugar testing TID (dx: E11.9)loratadine 10 mg oral tablet (20 sources)Start: 12-27-2017 End: 24-60-6496Aluynbzp 10MG OR TABS 12/27/2017 - 12/27/2017 Provider:metFORMIN hydrochloride 500 mg oral tablet (6 sources)BiguanideStart: 07-16-2024 End: 78-11-2638dlwf 500 mg by mouth twice daily at qgvtqoay580 mg, Oral, 2 TIMES DAILY WITH MEALS, First dose on Sat08/12/24 at 1700, Until Discontinued1 ml morphine sulfate 4 mg/ml injection (4 sources)Opioid AgonistStart: 11-19-2024 End: 58-00-1329igor 1 dose by mouth every hour4 mg, IntraVENous, ONCE, 1 dose, On Jenn 11/19/24 at 1315, If oral and IV narcotics ordered, use oralfirst and only use IV if oral is ineffective or cannot take oral. Do Not give oral and IV within 1 hour of each other unless specifically ordered.Start: 01-12-2021 End: 45-55-7256fgsyvkhu injection 4 mgStart: 12-04-2020 End: 89-87-2302mfbfrwtr injection 4 mgStart: 02-23-2019 End: 27-50-5467cqzckzoe (PF) injection 2 mgmultivitamin 1 tablet (1 source)Start: 76-05-5936thev 1 tablet by mouth once daily1 tablet, Oral, DAILY, First dose on 08/15/24 at 0900, Until Discontinued1 ml naloxone hydrochloride 0.4 mg/ml injection (20 sources)Opioid AntagonistStart: 10-07-2019 End: 19-18-9396euegwpum (NARCAN) injection 0.4 mgStart: 07-17-2019 End: 30-36-8400lywamkia (NARCAN) injection 1 mgStart: 18-77-3350Baffvl 4MG/0.1ML Nasal Liquid 07/28/2018 Provider: Vahid Nagy CNPnitrofurantoin, macrocrystals 25 mg / nitrofurantoin, monohydrate 75 mg oral capsule (9 sources)Nitrofuran AntibacterialStart: 09-23-2019 End: 74-26-6789Afdvxtkk 100 MG Oral Capsule 09/23/2019 - 09/24/2019 Provider: Vahid Nagy CNPNitrostat 0.4MG SL SUBL (8 sources)Start: 04-26-2018 End: 66-52-3946Aykkerlih 0.4MG SL SUBL 04/26/2018 - 04/26/2018 Provider: Conversion ProviderStart: 02-24-2018 End: 63-36-6719Glmptzmya 0.4MG SL SUBL 02/24/2018 - 02/24/2018 Provider:Start: 12-14-2016 End: 53-14-7158Fwwjxchyi 0.4MG SL SUBL 12/14/2016 - 12/14/2016 Provider:Start: 04-14-2015 End: 61-38-6271Wztzmjqql 0.4MG SL SUBL 04/14/2015 - 04/14/2015 Provider:normal saline (20 sources)Start: 08-16-2017 End: 06-36-5332JKSDZT SOLUTION MISC 08/16/2017 - 08/16/2017 Provider:Start: 94-15-8634Eyupwx Solution miscellaneous solution 08/16/2017 use as directed to clean out wound prior to packingnystatin 663038 unt/ml topical cream (1 source)Polyene AntifungalStart: 02-22-2021 End: 31-40-0006cgfqansb (MYCOSTATIN) 323216 UNIT/GM cream Apply topically 2 times daily. 15 g 1 02/22/2021 03/17/2021 Discontinued (LIST CLEANUP)2 ml orphenadrine citrate 30 mg/ml injection (1 source)Muscle RelaxantStart: 11-19-2024 End: 38-29-092506 mg, IntraVENous, ONCE, 1 dose, On Jenn 11/19/24 at 1400oxyCODONE hydrochloride 5 mg oral tablet (3 sources)Opioid AgonistStart: 08-06-2024 End: 40-34-2974mmby 1 dose by mouth once2.5 mg, Oral, Once, 1 dose, On Jenn 08/06/24 at 2045Start: 27-41-7475feoz 1 tablet by mouth every four hours as needed for painoxyCODONE (ROXICODONE) 5 mg immediate release tablet Indications: Hypertensive emergency Take 1 tablet (5 mg total) by mouth every 4 (four) hours as needed for pain for up to 10 doses. Max Daily Amount: 30 mg 10 tablet 11/17/2022 Suspendedpenicillin v potassium 500 mg oral tablet (20 sources)Start: 11-26-2017 End: 78-17-9396Xfcyumfyhx V Potassium 500MG OR TABS 11/26/2017 - 11/26/2017 Provider:Start: 10-29-2017 End: 16-31-4645Hscaejgtoe V Potassium 500MG OR TABS 10/29/2017 - 10/29/2017 Provider:piperacillin-tazobactam (ZOSYN) 3,375 mg in dextrose 5 % 50 mL IVPB (mini-bag) (1 source)Start: 03-17-2021 End: 72-68-1533eoehvgzohhjk-tazobactam (ZOSYN) 3,375 mg in dextrose 5 % 50 mL IVPB (mini-bag)piperacillin-tazobactam (ZOSYN) 3,375 mg in sodium chloride 0.9 % 50 mL IVPB (Eiie4Nom) (2 sources)Start: 08-12-2024 End: ,375 mg, IntraVENous, at 100 mL/hr, Administer over 30 Minutes, ONCE, On Sat08/12/24 at 1130, For 1 dose, Use 20mm (Blue) Elgi0Nyh Adapter Preparation instructions: Attach medication vial to one 20mm (Blue) Gtft9Yuz adapter. Rai fluid bag with adapter, mix, and administer per order.Start: 08-06-2024 End: ,375 mg, IntraVENous, at 12.5 mL/hr, Administer over 240 Minutes, EVERY 8 HOURS, First dose on Sat08/06/24 at 2200, For 7 days, Use 20mm (Blue) Owsv0Mja Adapter Preparation instructions: Attach medication vial to one 20mm (Blue) Aktp9Skr adapter. Rai fluid bag with adapter, mix, and administer per order.pravastatin sodium 20 mg oral tablet (20 sources)HMG-CoA Reductase InhibitorStart: 63-88-8498uluy 40 mg by mouth once daily40 mg, Oral, DAILY, First dose on Sat08/12/24 at 1545, Until Discontinued Start: 94-24-4484iayw 40 mg by mouth once daily40 mg, Oral, NIGHTLY, First dose on Sat08/06/24 at 2100, Until DiscontinuedStart: 52-33-0728dcqo 1 tablet by mouth once dailypravastatin (PRAVACHOL) 40 MG tablet Indications: Hyperlipidemia, unspecified hyperlipidemia type Take 1 tablet by mouth daily 90 tablet 1 02/06/2024 ActiveStart: 03-37-4995tqeh 1 tablet by mouth once dailypravastatin (PRAVACHOL) 40 MG tablet Indications: Hyperlipidemia, unspecified hyperlipidemia type Take 1 tablet by mouth daily 90 tablet 06/10/2023 ActiveStart: 05-09-2021 take 1 tablet by mouth once dailypravastatin (PRAVACHOL) 40 MG tablet Indications: Hyperlipidemia, unspecified hyperlipidemia type Take 1 tablet by mouth daily 90 tablet 0 11/30/2021 ActiveStart: 30-83-3185gybp 1 tablet by mouth once dailypravastatin (PRAVACHOL) 40 MG tablet Indications: Hyperlipidemia, unspecified hyperlipidemia type Take 1 tablet by mouth daily 90 tablet 0 03/23/2021 ActiveStart: 69-41-8159uuap 40 mg by mouth once daily40 mg, Oral, DAILY, First dose on Sat03/18/20 at 1430Start: 30-72-2853Ntvcgdldn 40 MG Oral Tablet 02/03/2020 Provider: Vahid Nagy CNPStart: 04-26-2018 End: 40-10-8499GVRGMAPACHI 40 MG MISC 04/26/2018 - 04/26/2018 Provider:Start: 04-26-2018 End: 52-27-6122PJJINASZZYN 40MG MISC 04/26/2018 - 04/26/2018 Provider:Start: 04-14-2015 End: 96-22-3644VKKOHGZBYUK 40 MG MISC 04/14/2015 - 04/14/2015 Provider:Start: 04-14-2015 End: 78-87-3486BBTYDMOAACQ 40MG MISC 04/14/2015 - 04/14/2015 Provider:Start: 04-14-2015 End: 05-10-5633utle 1 tablet by mouth once dailypravastatin 40 mg oral tablet 04/14/2015 12/14/2016 take 1 tablet (40 mg) by oral route once dailypregabalin 150 mg oral capsule (20 sources)Start: 01-19-2024 End: 50-52-4002fbou 1 capsule by mouth twice dailyPregabalin (Lyrica) 150 mg capsule Discontinued 150 MG PO Twice daily January 20, 2024 12:00am January 23, 2024 3:47pmStart: 12-27-2021 End: 96-54-2659zgts 1 capsule by mouth twice dailypregabalin (LYRICA) 150 MG capsule Indications: Chronic right hip pain , Chronic pain of right knee, Sacral pain , Lumbar back pain with radiculopathy affecting right lower extremity take 1 capsule by mouth twice a day 60 capsule 0 12/27/2021 01/26/2022 ActiveStart: 46-33-2224fizk 1 capsule by mouth twice dailypregabalin 75 MG capsule Take 1 capsule by mouth 2 times daily. 0 06/22/2021 ActiveStart: 03-23-2021 End: 34-43-9984lete 1 capsule by mouth twice dailypregabalin (LYRICA) 75 MG capsule Indications: Chronic pain of right knee , Chronic right hip pain , Sacral pain , Lumbar back pain with radiculopathy affecting right lower extremity Take 1 capsule by mouth 2 times daily for 30 days. 60 capsule 0 04/20/2021 ActiveStart: 52-98-3616Tvjjti 75 MG Oral Capsule 04/12/2020 Provider: Start: 90-40-9995Tduhjm 75 MG Oral Capsule 04/12/2020 Provider:Start: 03-18-2020 pregabalin (LYRICA) capsule 50 mgStart: 23-58-6976hwptlrpgao (LYRICA) capsule 75 mgpregabalin (LYRICA) 100 mg capsule Take 150 mg by mouth in the morning and 150 mg before bedtime. Suspended End: 87-77-3130cxmrwijllz (LYRICA) 50 MG capsule Take 30 mg by mouth 2 times daily. 0 03/17/2021 Discontinued (LIST CLEANUP)PROAIR HFA 90 MCG/ACTUAT MISC (20 sources)Start: 09-11-2017 End: 28-07-0151NZIQVT HFA 90 MCG/ACTUAT MISC 09/11/2017 - 09/11/2017 Provider: PROAIR HFA 90 MCG/ACTUAT MISC (1 source)Start: 09-11-2017 End: 07-13-4071XNDKLS HFA 90 MCG/ACTUAT MISC 09/11/2017 - 09/11/2017 Provider: 100 ml propofol 10 mg/ml injection (1 source)General AnestheticStart: 07-18-2019 End: 30-44-4546lqkfuzib injectionpt unable to verify home meds at this time (2 sources)Start: 01-19-2024 End: 74-04-1487xc unable to verify home meds at this time Discontinued January 19, 2024 12:00am January 20, 2024 4:55pmStart: 61-09-5902fu unable to verify home meds at this time Active January 19, 2024 12:00amQVAR 80 MCG/ACTUAT MISC (20 sources)Start: 08-09-2017 End: 39-92-0554HVHP 80 MCG/ACTUAT MISC 08/09/2017 - 08/09/2017 Provider:QVAR 80 MCG/ACTUAT MISC (1 source)Start: 08-09-2017 End: 58-30-5762QLQA 80 MCG/ACTUAT MISC 08/09/2017 - 08/09/2017 Provider: regadenoson (LEXISCAN) injection 0.4 mg (1 source)Start: 09-16-2019 End: 16-77-9883ktgcdbjrkty (LEXISCAN) injection 0.4 mgsimethicone in sterile water 80 mg/1000 mL irrigation 1 Application (2 sources)Start: 07-19-2021 End: 11-05-5458ipssewqkare in sterile water 80 mg/1000 mL irrigation 1 Applicationsucralfate 100 mg/ml oral suspension (6 sources)Aluminum ComplexStart: 12-30-2024 End: 09-11-6426gism 1 dose by mouth every two hours1,000 [...] injection 30 millicurie (2 sources)Start: 09-17-2019 End: 92-34-8041lllzjmjoww sestamibi (CARDIOLITE) injection 30 millicurieStart: 09-16-2019 End: 83-80-4101toffxsyjhf sestamibi (CARDIOLITE) injection 30 buteqphvzi82 actuat tiotropium 0.0025 mg/actuat inhalation spray (10 sources)AnticholinergicStart: 04-93-0220qzky 2 puff(s) by inhalation once daily2 puff, Inhalation, DAILY RESP, First dose on Sat08/12/24 at 1915, Until DiscontinuedStart: 14-05-7425mspf 1 capsule by inhalation once dailytiotropium (SPIRIVA HANDIHALER) 18 MCG inhalation capsule Indications: Chronic obstructive pulmonary disease, unspecified COPD type (HCC) Inhale 1 capsule into the lungs daily 90 capsule 1 02/06/2024ctiveStart: 38-96-6759awcf 1 capsule by inhalation once dailytiotropium (SPIRIVA HANDIHALER) 18 MCG inhalation capsule Indications: Chronic obstructive pulmonary disease, unspecified COPD type (HCC) Inhale 1 capsule into the lungs daily 90 capsule 1 12/18/2022ctiveStart: 72-04-1330qjmd 1 capsule by inhalation once dailytiotropium (SPIRIVA HANDIHALER) 18 MCG inhalation capsule Indications: Chronic obstructive pulmonary disease, unspecified COPD type (HCC) Inhale 1 capsule into the lungs daily 90 capsule 1 06/11/2022ctivetriamcinolone acetonide 5 mg/ml topical cream (20 sources)CorticosteroidStart: 09-11-2017 End: 00-43-5967Qjydolnobrcpv Acetonide 0.5% EX CREA 09/11/2017 - 09/11/2017 Provider:Start: 01-79-2593aejjluulmwczs acetonide 0.5 % topical cream 09/11/2017 apply a thin layer to the affected areas by topical route 3 times per dayTrue Metrix Glucose Meter (11 sources)Start: 01-02-1768Trvq Metrix Glucose Meter miscellaneous misc 12/14/2016 use for blood sugar testing TID (dx: E11.9)TRUE METRIX GLUCOSE METER MIS (20 sources)Start: 12-14-2016 End: 53-35-6365PGLR METRIX GLUCOSE METER MISC 12/14/2016 - 12/14/2016 Provider: TRUE METRIX GLUCOSE METER MISC (10 sources)Start: 12-14-2016 End: 09-23-5267BNVP METRIX GLUCOSE METER MISC 12/14/2016 - 12/14/2016 Provider: TRUE METRIX GLUCOSE TEST STRI MISC (20 sources)Start: 12-14-2016 End: 06-20-6285RJFB METRIX GLUCOSE TEST STRI MISC 12/14/2016 - 12/14/2016 Provider:TRUE METRIX GLUCOSE TEST STRI MISC (10 sources)Start: 12-14-2016 End: 56-15-3615YQXD METRIX GLUCOSE TEST STRI MISC 12/14/2016 - 12/14/2016 Provider:True Metrix Glucose Test Strip (11 sources)Start: 52-06-7758Khcq Metrix Glucose Test Strip miscellaneous strip 12/14/2016 use for blood sugar testing TID (dx: E11.9)vancomycin (VANCOCIN) 750 mg in sodium chloride 0.9 % 250 mL IVPB (Avwb1Guu) (1 source)Start: 08-06-2024 End: 55-61-2873469 mg (13.2 mg/kg), IntraVENous, at 250 mL/hr, Administer over 60 Minutes, EVERY 12 HOURS, First dose on Jenn 08/06/24 at 1615, Use 20mm (Blue) Gnia3Amv Adapter Preparation instructions: Attach medication vial to one 20mm (Blue) Gyua8Xhs adapter. Rai fluid bag with adapter, mix, and administer per o rder.VITAMIN D3 400 unit MISC (20 sources)Start: 08-16-2017 End: 22-31-4153LPLEUQS D3 400 unit MISC 08/16/2017 - 08/16/2017 Provider:VITAMIN D3 400 unit MISC (5 sources)Start: 08-16-2017 End: 59-94-8655MXPITNT D3 400 unit MISC 08/16/2017 - 08/16/2017 Provider: Problems Active Problems Problem ClassificationProblemDateDocumented DateEpisodic/ChronicAbdominal hernia (20 sources)Hernia of anterior abdominal wall; Translations: [Ventral, unspecified, hernia without mention of obstruction or gangrene]Onset: 08-30-2013 11-40-7609HfyvouchTyqnz myocardial infarction (20 sources)Myocardial infarction; Translations: [Non-ST elevation (NSTEMI) myocardial infarction]Onset: 269807-37-1980EojtlrcRltopsh disorders (20 sources)Anxiety state, unspecified; Translations: [Generalized anxiety disorder]Onset: 067822-07-2662KywsdlxNwywsn; peripheral; and visceral artery aneurysms (20 sources)Abdominal aortic aneurysm without rupture; Translations: [Abdominal aortic aneurysm, without rupture]Onset: 203620-42-0633MmkizgyDdouzxo dysrhythmias (2 sources)Atrial fibrillation; Translations: [Unspecified atrial fibrillation] Onset: 706927-85-9282ScjkevpKfmudjv obstructive pulmonary disease and bronchiectasis (20 sources)Acute exacerbation of chronic obstructive airways disease; Translations: [Chronic obstructive lung disease]Onset: ChronicChronic ulcer of skin (20 sources)Pressure ulcer, other site; Translations: [Chronic ulcer of other specified sites]Onset: 134474-73-9709NliqecfMwbcfpkoga associated with dizziness or vertigo (20 sources)Dizziness; Translations: [Dizziness and giddiness]Onset: 05-27-2014 16-47-9278NhjkqdhcDedtrcqbfa heart failure; nonhypertensive (20 sources)Congestive heart failure; Translations: [Acute on chronic diastolic heart failure]Onset: 03-18-2021 Resolved: 09-03-7666FngzmmsNznvjehl atherosclerosis and other heart disease (20 sources)Coronary arteriosclerosis; Translations: [Chronic ischemic heart disease, unspecified]Onset: 11-06-2012 Resolved: 428151-76-2402QlxkrfoPxzrwikhzh and other anemia (2 sources)Anemia, unspecified; Translations: [Anemia, unspecified]Onset: 045673-34-3369EprrsxryZksiykck mellitus with complications (20 sources)Type 2 diabetes mellitus in obese; Translations: [Diabetes with other specified manifestations, type II or unspecified type, not stated as uncontrolled]Onset: 043672-10-2495HupankwCfetlywg mellitus without complication (20 sources)Type 2 diabetes mellitus; Translations: [Diabetes mellitus without mention of complication, type IIor unspecified type, not stated as uncontrolled] Onset: 453694-30-4337EwwdpohYllcfrznl of lipid metabolism (20 sources)Other and unspecified hyperlipidemia; Translations: [Mixed hyperlipidemia]Onset: 130531-26-1041QrpiuevQfdvmmcx; convulsions (12 sources)Status epilepticus; Translations: [Epilepsy, unspecified, not intractable, with status epilepticus]Onset: 11-09-2022 Resolved: 034109-13-0298KinuxhjYdhsudxch hypertension (20 sources)Unspecified essential hypertension; Translations: [Hypertensive disorder]Onset: 301039-26-4254FvniiysFfnmoelx cause codes: Fall (3 sources)Fall; Translations: [Fall from standing, initial encounter]Onset: Fluid and electrolyte disorders (3 sources)Hyponatremia; Translations: [Hypokalemia]Onset: EpisodicGastroduodenal ulcer (except hemorrhage) (5 sources)Gastric ulcer without hemorrhage AND without perforation; Translations: [Gastric ulcer, unspecifiedas acute or chronic, without hemorrhage or perforation]Onset: 041105-52-0550QdhftjhIenvljxtgqiqy symptoms and ill-defined conditions (20 sources)Incontinence; Translations: [Urinary incontinence]Onset: 04-06-2021 20-65-9780IgzmcuuBxljfzxntghl with complications and secondary hypertension (12 sources)Hypertensive emergency; Translations: [Hypertensive emergency]Onset: 084500-21-3519UhevomfTkyexubhs arthritis and osteomyelitis (except that caused by tuberculosis or sexually transmitted disease) (4 sources)Osteomyelitis of left foot; Translations: [Osteomyelitis, unspecified]Onset: 371328-00-5614NipzmqbBljsxwu and fatigue (20 sources)Other malaise and fatigue; Translations: [Asthenia]Onset: 03-11-2015 85-26-1598JjtrkucaLigg disorders (20 sources)Major depressive affective disorder, recurrent episode, moderate; Translations: [Dysthymic disorder]Onset: 589039-71-4258LasvifhSoesze and vomiting (20 sources)Intractable nausea and vomiting; Translations: [Nausea with vomiting, unspecified]Onset: 47-25-5485AlfalqypPiiiqrgigju deficiencies (20 sources)Undernutrition; Translations: [Mild protein-calorie malnutrition] Onset: 02-22-2021 Resolved: 204066-72-9933LqxxtmqKjyutvrgv or stenosis of precerebral arteries (20 sources)Bilateral atherosclerosis of carotid arteries; Translations: [Occlusion and stenosis of bilateral carotid arteries]Onset: 05-27-2014 01-82-6676RgydvzzHphbwbeuq or stenosis of precerebral arteries (20 sources)Bilateral atherosclerosis of carotid arteries; Translations: [Atherosclerosis of both carotid arteries]Onset: Osteoarthritis (1 source)Osteoarthritis; Translations: [Osteoarthritis, unspecified osteoarthritis type, unspecified site]ChronicOther and ill-defined cerebrovascular disease (1 source)Posterior reversible encephalopathy syndrome; Translations: [POST REVERSIBLE ENCEPHALOPATHY SYND]Onset: 67-69-9025AzqzrmnAcxkt and ill-defined cerebrovascular disease (12 sources)Posterior reversible encephalopathy syndrome; Translations: [Posterior reversible encephalopathy syndrome]Onset: 753224-79-9011Uavkrxs Other bone disease and musculoskeletal deformities (1 source)Avascular necrosis of bone; Translations: [Avascular necrosis (HCC)] ChronicOther circulatory disease (3 sources)Disorder of carotid artery; Translations: [Bilateral carotid artery disease, unspecified type (HCC)]ChronicOther circulatory disease (20 sources)History of angioplasty; Translations: [Peripheral vascular angioplasty status with implants and grafts]Onset: 263115-54-0392Dnedbgj Other circulatory disease (8 sources)Blood vessel finding; Translations: [Presence of other vascular implants and grafts]Onset: 415481-53-9246UqavsdrLuzke circulatory disease (4 sources)Disorder of artery; Translations: [Disorder of arteries and arterioles, unspecified]Onset: 623443-24-6201QmljaeiTxlhn circulatory disease (1 source)Disorder of arteries and arterioles, unspecified; Translations: [Disorder of arteries and arterioles, unspecified]Onset: 20-73-6948EgzkvtnVvjpp circulatory disease (7 sources)History of angioplasty; Translations: [S/P angioplasty with stent] Onset: 419992-25-8410LggdngupPwdda circulatory disease (2 sources)Low blood pressure; Translations: [Hypotension, unspecified] 90-66-0845GnmjmcbrYcnft circulatory disease (3 sources)Hypotension, unspecified; Translations: [Hypotension, unspecified] Onset: 586198-05-6910GibucfnhLiuvf connective tissue disease (1 source)Pain in left arm; Translations: [Pain of left upper extremity]Episodic Other connective tissue disease (1 source)Chronic pain of left foot; Translations: [Pain in left foot]Onset: 267846-70-5885IgvregizQpplj ear and sense organ disorders (3 sources)Otalgia, unspecifiedOnset: 57-25-9192PumefftqRmvgu gastrointestinal disorders (13 sources)Diarrhea; Translations: [Diarrhea, unspecified]Onset: 07-04-2021 96-19-7458CreuojhlAtcrg gastrointestinal disorders (1 source)Diarrhea, unspecified; Translations: [Diarrhea, unspecified]Onset: 74-16-7582QzyfbzreMnrbl injuries and conditions due to external causes (1 source)Contusion; Translations: [Unspecified multiple injuries, initial encounter]EpisodicOther injuries and conditions due to external causes (1 source)Other injury of unspecified body region, initial encounter; Translations: [Open wound(s) (multiple)of unspecified site(s), without mention of complication]Onset: 356136-78-5130GevglvidWeykb lower respiratory disease (20 sources)CoughOnset: 33-84-7356TmcrogcoJhtmh lower respiratory disease (5 sources)Shortness of breathOnset: 81-10-9113GvqwvdzpTbvug lower respiratory disease (1 source)Acute pulmonary edema; Translations: [Acute pulmonary edema (HCC)] EpisodicOther lower respiratory disease (9 sources)Hypoxia; Translations: [Hypoxemia]Onset: 188282-04-3064Uehqflnj Other lower respiratory disease (2 sources)Shortness of breath; Translations: [Shortness of breath]Onset: 96-26-8122ByqtmagqHeobk nervous system disorders (4 sources)Other chronic pain; Translations: [Other chronic pain]Onset: 48-33-6085LvduyodCckmm nervous system disorders (13 sources)Chronic pain syndrome; Translations: [Chronic pain syndrome]Onset: 814345-84-4396IfcbozrEfwuf nervous system disorders (4 sources)Neuropathy; Translations: [Polyneuropathy, unspecified]Onset: 932965-31-9937HucywklCeuvm nervous system disorders (1 source)Chronic pain syndrome; Translations: [Chronic pain syndrome]Onset: 91-79-4702NdpsctrRiaji non-traumatic joint disorders (20 sources)Hip pain; Translations: [Pain in right hip]Onset: 24-91-8888Vgahklfs Other nutritional; endocrine; and metabolic disorders (20 sources)Obesity, unspecifiedOnset: 89-67-7315PoawtjrMrelt nutritional; endocrine; and metabolic disorders (10 sources)Body Mass Index 34.0-34.9, adultOnset: 08-60-8531NainugrFpyfy nutritional; endocrine; and metabolic disorders (4 sources)Body Mass Index 39.0-39.9, adultOnset: 22-07-6751MjnrtjvIgdqe nutritional; endocrine; and metabolic disorders (4 sources)Body Mass Index 40.0-44.9, adultOnset: 88-16-8779SfgjhjyHsjee nutritional; endocrine; and metabolic disorders (4 sources)Body Mass Index 33.0-33.9, adultOnset: 52-40-7826GcizdjyJalfz nutritional; endocrine; and metabolic disorders (4 sources)Body Mass Index 32.0-32.9, adultOnset: 31-64-4621DypgucyNmtvh nutritional; endocrine; and metabolic disorders (20 sources)Simple obesity ; Translations: [Obesity, unspecified]Onset: 11-77-4311UsdlwmzEfpdj nutritional; endocrine; and metabolic disorders (9 sources)Finding of body mass index; Translations: [Body mass index [BMI]] Onset: 50-84-4223IilvyhzWknio nutritional; endocrine; and metabolic disorders (12 sources)Severe obesity; Translations: [Morbid (severe) obesity due to excess calories]Onset: 703251-08-9690MbjqvdzKzdoa screening for suspected conditions (not mental disorders or infectious disease) (20 sources)Encounter for screening for diabetes mellitus; Translations: [Thallium stress test abnormal]Onset: 01-22-2013 Resolved: 568814-92-3999TvxoyqbfTkvct upper respiratory disease (4 sources)Allergic rhinitis, cause unspecifiedOnset: 38-64-2321LllhvugCyyjk upper respiratory disease (18 sources)Perennial allergic rhinitis with seasonal variation; Translations: [Assessment of Allergic RhinitisPerennial with Seasonal Variation]Onset: 16-98-5017DxycoolFgjxx upper respiratory disease (5 sources)Allergic rhinitis; Translations: [Allergic rhinitis, unspecified] Onset: 215187-09-9371XianwawWhqnjq media and related conditions (9 sources)Chronic suppurative otitis media of left middle ear; Translations: [Other chronic suppurative otitis media, left ear]Onset: 289667-23-6075 ChronicPeripheral and visceral atherosclerosis (20 sources)Peripheral vascular disease, unspecified; Translations: [Atherosclerosis of arteries of the extremities]Onset: ChronicPhlebitis; thrombophlebitis and thromboembolism (20 sources)H/O: thrombosis; Translations: [Personal history of other venous thrombosis and embolism]50-08-4770IfcatuwrDhqqsmvg; pneumothorax; pulmonary collapse (1 source)Bilateral pleural effusion; Translations: [Pleural effusion, not elsewhere classified]EpisodicPulmonary heart disease (12 sources)Pulmonary hypertension; Translations: [Pulmonary hypertension, unspecified]Onset: 846966-48-3894YskjljnTkqcgagx codes; unclassified (20 sources)Tobacco user; Translations: [Tobacco abuse]Onset: 05-27-2014 89-61-6288WoaiekzBzefzzcz codes; unclassified (2 sources)Persistent insomnia; Translations: [Persistent Insomnia]Onset: 19-15-1629BoutezvAldhbbfa codes; unclassified (4 sources)Restlessness and agitation; Translations: [Restlessness and agitation]Onset: 768557-75-5385YdlaknuHtpdgokd codes; unclassified (1 source)Restlessness and agitation; Translations: [Restlessness and agitation] Onset: 52-52-1753SguhnshCntkgukb codes; unclassified (20 sources)Tobacco user; Translations: [Tobacco use]Onset: EpisodicResidual codes; unclassified (1 source)Tobacco use; Translations: [Tobacco use]Onset: 47-34-7605Dqhxgnnl Residual codes; unclassified (1 source)Pain; Translations: [Pain, unspecified]45-15-9521AveouzwzUeyhknut codes; unclassified (1 source)Other specified personal risk factors, not elsewhere classified; Translations: [Other specified personal risk factors, not elsewhere classified] Onset: 37-60-2138BvotvktqZgmyecigiqu failure; insufficiency; arrest (adult) (20 sources)Acute on chronic hypoxemic respiratory failure; Translations: [Acute and chronic respiratory failure with hypoxia]Onset: 04-23-2019 Resolved: 395035-54-8862OpjyvxaQazdzefohmt failure; insufficiency; arrest (adult) (20 sources)Acute hypoxemic and hypercapnic respiratory failure; Translations: [Acute on chronic hypercapnic respiratory failure]Onset: Spondylosis; intervertebral disc disorders; other back problems (5 sources)Degeneration of lumbar intervertebral disc; Translations: [Lumbar spondylosis]Onset: 730670-80-7747HesftmkNjdvwtfef-koamnce disorders (20 sources)Tobacco use disorder; Translations: [Tobacco dependence syndrome] Onset: 736346-27-9334YatzzylKcpgfpsunvc injury; contusion (3 sources)Right knee abrasion; Translations: [Abrasion, right knee, initial encounter]EpisodicSyncope (2 sources)Near syncope; Translations: [Syncope and collapse]EpisodicThyroid disorders (20 sources)Hypothyroidism; Translations: [Unspecified acquired hypothyroidism] Onset: 119142-59-4943EaagnnxUqqqsegnvmtx (20 sources)Body Mass Index 35.0-35.9, adult; Translations: [Body Mass Index 39.0-39.9, adult]Onset: 78-13-6582OmoymoaRmfhmyudooyy (1 source)Contusion of left hand; Translations: [Contusion of left hand, initial encounter]Unclassified (1 source)COVID-19; Translations: [COVID-19]Onset: Unclassified (4 sources)History of cardiac catheterization; Translations: [S/P cardiac cath] Onset: 844105-76-9192Uqtcamcmhxdl (1 source)CONTACT W/AND (SUSP) EXPOS COVID-19; Translations: [CONTACT W/AND (SUSP) EXPOS COVID-19]Onset: 53-79-7112Qgoqtahsguhe (1 source)Weakness - GeneralizedOnset: 06-23-1251Yqukwbbcouqq (1 source)Pressure-induced deep tissue damage of left heel; Translations: [Pressure-induced deep tissue damage of left heel]Onset: 44-16-2358Hujzwkgbgwmw (1 source)Wound CheckOnset: 18-98-5243Jyygdlindrav (1 source)Decreased Oxygen Level With No SymptomsOnset: 80-23-7284Xwkztynojflp (1 source)Musculoskeletal ProblemOnset: 46-61-1046Wkaeekmqmfhb (1 source)Exposure Coronavirus (Covid-19)Onset: 46-56-0640Doxanjtdbzkv (1 source)Body Aches, Chills, Runny NoseOnset: 74-36-6554Ndziccnmaviw (1 source)BLE pain, worse over past couple days. CTA Deep profunda is the main supply of both lower extremities, severe stenosis at the right deep profunda artery, Aortobiiliac bypass graft is widely patent. Both SFA and left femoral popliteal bypass grafts are occluded.Onset: 66-00-8671Cdhvxir tract infections (20 sources)Urinary tract infectious disease; Translations: [Escherichia coli urinary tract infection]Onset: 591684-32-6513Fyeziozg Past or Other Problems Problem ClassificationProblemDateDocumented DateEpisodic/ChronicAbdominal pain (20 sources)Abdominal pain, other specified site; Translations: [Abdominal pain] Onset: 82-66-2543WnsfoxbvBxbpnamkfjfyxk/social admission (20 sources)Counseling procedure with explicit context; Translations: [Relationship problems]Onset: 516557-19-7989MqqlhdtvNmwxqbl obstructive pulmonary disease and bronchiectasis (20 sources)Bronchitis; Translations: [Bronchitis, not specified as acute or chronic]Onset: 62-96-8353OuifdtuxBtjpfzqyeqoim of surgical procedures or medical care (20 sources)Non-healing surgical wound; Translations: [Other postoperative infection]Onset: 024361-11-1428NzndqxlkDvaozleg atherosclerosis and other heart disease (20 sources)Recurrent coronary arteriosclerosis after percutaneous transluminal coronary angioplasty; Translations: [Presence of coronary angioplasty implant and graft]Onset: 904063-68-2361VdjlqtouMommtdkl injury or internal injury (20 sources)Unspecified injury of unspecified part of pancreas, initial encounter; Translations: [Splenic hematoma]Onset: 129785-41-0529Mlisvaaw Deficiency and other anemia (6 sources)Anemia; Translations: [Anemia, unspecified]Onset: 01-28-2023 07-70-4789TusclvhyTaydbnkc mellitus without complication (15 sources)Hyperglycemia; Translations: [Hyperglycemia, unspecified]Onset: 956532-10-2920SabsudqrIxujxzgq of mouth; excluding dental (4 sources)Oral lesion; Translations: [Other lesions of oral mucosa]Onset: 362670-77-9215AnwphjpqHcfurotjw of teeth and jaw (10 sources)Acute apical periodontitis of pulpal originOnset: 18-97-0368Ywnlgkhe E Codes: Fall (20 sources)Fall; Translations: [Unspecified fall, initial encounter]Onset: 04-06-2021 Resolved: 26-00-0054FyfyzlxzFzftgtbl; convulsions (1 source)Unspecified convulsions; Translations: [UNSPECIFIED CONVULSIONS]Onset: 28-48-3826DcgczlwlXeirfljwtkdxcsyh hemorrhage (20 sources)Acute lower gastrointestinal hemorrhage; Translations: [Gastrointestinal hemorrhage, unspecified]Onset: 762006-47-5907Fyxcaihu Immunizations and screening for infectious disease (20 sources)Need for prophylactic vaccination and inoculation against influenza; Translations: [Contact with and (suspected) exposure to other viral communicable diseases]Onset: 02-10-2015 Resolved: 139223-87-5794UhethspoGcgmvnnipkgh; infection of eye (except that caused by tuberculosis or sexually transmitteddisease) (20 sources)Acute atopic conjunctivitis; Translations: [Acute atopic conjunctivitis]Onset: 62-20-4487HnztirmdYmcuhfd examination/evaluation (8 sources)Laboratory examination, unspecifiedOnset: 09-86-5766WcdnchvlPelt disorders (20 sources)Major depressive disorder, single episode, unspecified; Translations: [Mood disorders]Onset: 10-22-2022 Resolved: 075194-72-6890Mfprwnograq chest pain (8 sources)Chest pain; Translations: [Chest pain, unspecified]Onset: 01-19-2024 76-29-0501TanzrrjtDekr wounds of extremities (6 sources)Open wound of foot, excluding toe(s); Translations: [Unspecified open wound, unspecified foot, initial encounter]Onset: 098119-94-3215Ezobudpm Open wounds of head; neck; and trunk (13 sources)Open wound(s) (multiple) of unspecified site(s), without mention of complication; Translations: [Laceration of nose]Onset: EpisodicOther aftercare (1 source)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; 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: [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 GRINDER 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 DRUG THERAPY]Onset: 58-18-4782DpiawyycRkhti bone disease and musculoskeletal deformities (10 sources)Other disorders of bone and cartilageOnset: 91-58-2955OsibhzxoLxdor circulatory disease (5 sources)Pulmonary congestion ; Translations: [Other specified symptoms and signs involving the circulatory and respiratory systems]Onset: 09-21-2022 97-62-3172UmzcpaifNxkiw circulatory disease (8 sources)Ischemia of left lower extremity; Translations: [Other disorder of circulatory system]Onset: 099492-37-5961VgjkksnkGhsqn circulatory disease (4 sources)Disorder of cardiovascular system; Translations: [Unspecified disorder of circulatory system]Onset: 984928-55-2524UajquzblLgbgu circulatory disease (2 sources)Other disorder of circulatory system; Translations: [Other disorder of circulatory system]Onset: 00-23-2359NlobrqahOslpf connective tissue disease (20 sources)Pain in limbOnset: 75-84-2644FthxqqdbQvbwd connective tissue disease (15 sources)Spasm; Translations: [Other muscle spasm]Onset: 719985-83-8238 EpisodicOther connective tissue disease (9 sources)Pain of left hand; Translations: [Pain in left hand]Onset: 06-11-2022 36-48-1683EpxqwyypLhfnn connective tissue disease (9 sources)Intermittent claudication; Translations: [Pain in leg, unspecified] Onset: 773417-98-7396UdqghajqPkfvv connective tissue disease (10 sources)Pain in lower limb; Translations: [Pain in leg, unspecified]Onset: 632745-78-0478UinsdeobZwvvh connective tissue disease (4 sources)Disorder of musculoskeletal system; Translations: [Soft tissue disorder, unspecified]Onset: 334565-17-8619LxijpiraQrfud connective tissue disease (1 source)Other specified soft tissue disorders; Translations: [Other specified soft tissue disorders]Onset: 36-13-1494IrjndhucCvdje connective tissue disease (2 sources)Pain in leg, unspecified; Translations: [Pain in leg, unspecified] Onset: 62-60-8145VuyucccfKuvis ear and sense organ disorders (12 sources)Excessive cerumen in ear canal ; Translations: [Impacted cerumen, bilateral]Onset: 341529-12-4955XocmxeroZvbyg fractures (1 source)Unspecified fracture of second lumbar vertebra, initial encounter for closed fracture; Translations: [UNS FX SECOND LUMB VERT INIT PAYAM FX]Onset: 18-10-6834IykmwfetQmydk fractures (4 sources)Closed fracture of pelvis; Translations: [Fracture of unspecified parts of lumbosacral spine and pelvis, initial encounter for closed fracture] Onset: 825501-98-4959GvuhippqWmkej gastrointestinal disorders (13 sources)Abdominal mass; Translations: [Right lower quadrant abdominal swelling, mass and lump]Onset: 284553-82-2353DpoastscAhlni infections (8 sources)Unspecified infectious and parasitic diseasesOnset: 10-29-2017 EpisodicOther inflammatory condition of skin (4 sources)Erythema; Translations: [Erythematous condition, unspecified]Onset: 629271-38-4582XfofebdnGdkjt injuries and conditions due to external causes (10 sources)Insect bite, nonvenomous, of other, multiple, and unspecified sites, without mention of infectionOnset: 84-80-7892FnkwjyugLlrdd injuries and conditions due to external causes (5 sources)Closed injury of head; Translations: [Unspecified injury of head, initial encounter]Onset: 14-32-5137QnodfzeeNears lower respiratory disease (20 sources)Dyspnea; Translations: [Shortness of breath]Onset: 11-23-2021 92-30-4841DvhfuiddHuhvo lower respiratory disease (17 sources)Cough; Translations: [Cough]Onset: 07-25-2021 Resolved: 984107-74-2158GutrninhUfiec lower respiratory disease (14 sources)Respiratory distress; Translations: [Acute respiratory distress] Onset: 575142-25-9543EwtcxqmcHjqfa lower respiratory disease (20 sources)Chronic cough; Translations: [Chronic cough]Onset: 03-13-2022 45-96-0700MpqnnwwxKhpci lower respiratory disease (4 sources)Hypoxemia; Translations: [Hypoxemia]Onset: EpisodicOther nervous system disorders (5 sources)Numbness; Translations: [Anesthesia of skin]Onset: 05-16-2024 45-29-4692NdcogcrsHqbqq nervous system disorders (1 source)Paresthesia of skin; Translations: [Paresthesia of skin]Onset: 97-78-5833LfcicxvdXhftg non-traumatic joint disorders (20 sources)Pain in joint, shoulder regionOnset: 41-91-5989IgiuvkfrMgilc non- traumatic joint disorders (20 sources)Shoulder pain; Translations: [Pain in unspecified limb]Onset: 06-55-9160XmfrfdewKqtjx non-traumatic joint disorders (12 sources)Pain in right hip joint; Translations: [Pain in right hip]Onset: 82-72-1184AtkfgojhNzzqt non-traumatic joint disorders (17 sources)Pain in right knee; Translations: [Pain in joint, lower leg]Onset: 404176-40-5407GkjdaifpWpknh non-traumatic joint disorders (15 sources)Chronic pain of left upper limb; Translations: [Pain in left shoulder]Onset: 313278-57-7071QmmqrxkqAevyk non-traumatic joint disorders (4 sources)Pain in right hip; Translations: [Pain in right hip]Onset: 11-17-2021 EpisodicOther non-traumatic joint disorders (2 sources)Pain in left hip; Translations: [Pain in left hip]Onset: 12-18-2021 EpisodicOther nutritional; endocrine; and metabolic disorders (1 source)Finding of body mass index; Translations: [Body mass index [BMI]] Onset: 12-64-9021VczmirciAjqpj nutritional; endocrine; and metabolic disorders (5 sources)Weight decreased; Translations: [Abnormal weight loss]Onset: 846700-94-3359NxsyigfgCqagw skin disorders (20 sources)Inflammatory dermatosis; Translations: [Contact dermatitis and other eczema, unspecified cause]Onset: 95-88-2744PjxeohlkJehnm skin disorders (9 sources)Mass of lower limb; Translations: [Localized swelling, mass and lump, left lower limb]Onset: 726524-50-1437KndwtavjLbkga skin disorders (4 sources)Lesion of skin of foot; Translations: [Changes in skin texture]Onset: 895743-34-9214MlijqjzfCcsjr skin disorders (4 sources)Xeroderma; Translations: [Xerosis cutis]Onset: 150949-45-1892 EpisodicOther skin disorders (1 source)Changes in skin texture; Translations: [Changes in skin texture]Onset: 51-22-1388AicojvoxAqrne upper respiratory infections (20 sources)Acute upper respiratory infections of unspecified site; Translations: [Acute sinusitis]Onset: 47-77-3226JihgyrwuOxinmi media and related conditions (9 sources)Acute suppurative otitis media without spontaneous rupture of ear drum; Translations: [Acute suppurative otitis media without spontaneous rupture of ear drum, left ear]Onset: 212043-77-8475AxmjhqsnEnadudeexj disorders (not diabetes) (20 sources)Mass of pancreas; Translations: [Other specified diseases of pancreas]Onset: 347575-14-8836GfhsyidqXvmfojxmn (except that caused by tuberculosis or sexually transmitted disease) (20 sources)Infective pneumonia; Translations: [Community acquired pneumonia] Onset: 926952-22-2764GyxvlfseUssnbyaua by other medications and drugs (20 sources)Drug intolerance; Translations: [Other specified health status] Onset: 384736-81-2304MndxzxqiIdyflpezg heart disease (9 sources)Pulmonary embolism; Translations: [Other pulmonary embolism without acute cor pulmonale]Onset: 806014-22-3952NaafgrtqGuoiatfy codes; unclassified (20 sources)Altered mental status; Translations: [Altered mental status, unspecified]Onset: 843953-94-2775VcppnkfwAsmehogw codes; unclassified (2 sources)Other general symptoms and signs; Translations: [Suspected COVID-19 virus infection]Onset: 07-17-2019 Resolved: 622375-12-1868MlohiwmxNnxqoxnq codes; unclassified (20 sources)History of cardiac catheterization; Translations: [Other specified postprocedural states]Onset: 308460-27-0049CbnbsrlfCybifbqp codes; unclassified (20 sources)Edema of lower extremity; Translations: [Localized edema]Onset: 711499-11-6393DnkhgfjtKgtcetmt codes; unclassified (13 sources)Difficulty sleeping ; Translations: [Sleep disorder, unspecified] Onset: 823978-34-0384UtzvkqioZtxibvwc codes; unclassified (20 sources)Insomnia; Translations: [Insomnia, unspecified]Onset: 06-22-2021 58-24-1798FblezncyZpfobcuh codes; unclassified (11 sources)Tobacco use and exposure - finding; Translations: [Tobacco use] Onset: 45-21-0288SgfflvhnIgdxxpoh codes; unclassified (12 sources)Postoperative state; Translations: [Other specified postprocedural states]Onset: 844302-11-5062GzkxcxduNhpichuf codes; unclassified (4 sources)Transient alteration of awareness; Translations: [Transient alteration of awareness]Onset: 827629-46-7992AggsaiggUbzvzddg codes; unclassified (4 sources)Acute insomnia; Translations: [Insomnia, unspecified]Onset: 180849-10-5382HgidabygJsafzwjs codes; unclassified (5 sources)Unable to perform personal care activity; Translations: [Other specified health status]Onset: 697350-71-7775FxayjdgrDaecqcuw codes; unclassified (1 source)Other specified health status; Translations: [Other specified health status]Onset: 98-01-4082TapdgqtbEuovnsygcrt failure; insufficiency; arrest (adult) (20 sources)Acute hypoxemic and hypercapnic respiratory failure; Translations: [Acute respiratory failure with hypoxia]Onset: 06-05-2018 Resolved: 909658-13-5526FzcrvfufBltw and subcutaneous tissue infections (20 sources)Cellulitis of left lower limb; Translations: [Cellulitis of left lower limb]Onset: 42-08-4394ChlhkbmlEoybb and face fractures (4 sources)Closed fracture of nasal bones; Translations: [Fracture of nasal bones, initial encounter for closed fracture]Onset: 667684-83-8137Nvgilvjy Spondylosis; intervertebral disc disorders; other back problems (20 sources)Backache, unspecified; Translations: [Lumbago]Onset: 02-10-2015 42-97-4674GqoujqwmHcfspcc and strains (8 sources)Strain of muscle and/or tendon of thigh; Translations: [Strain of tendon of medial thigh muscle]Onset: 88-93-7338FpgyegwjQurjfwwwk-related disorders (20 sources)Cigarette smoker ; Translations: [Poisoning by opiate analgesic drug]Onset: 246913-60-2759HzeukpsbVspjhyp disorders (20 sources)Disorder of thyroid gland; Translations: [Disorder of thyroid, unspecified] Resolved: 181165-64-0156RqclwyjlEecgzfamrgnm (10 sources)Insomnia, unspecifiedOnset: 29-21-8896UctyqfbtWhtpvjiehnrh (20 sources)Finding of body mass index; Translations: [Body Mass Index]Onset: 15-94-9514Ylcufyygmxyy (20 sources)Questionnaires Phq-9 Total Score; Translations: [Questionnaires Phq- 9 Total Score]Onset: 12-45-1823Blhkgwznzinm (20 sources)Fagerstrom Score; Translations: [Fagerstrom Score]Onset: 01-12-2019 Unclassified (20 sources)Patient encounter status; Translations: [Colon cancer screening] Onset: 03-17-2015 Resolved: 407247-33-2517Cfkkapjthvtp (2 sources)Onset: 095023-22-6992Evefo infection (19 sources)COVID-19; Translations: [Pneumonia due to other virus not elsewhere classified]Onset: 997737-31-6190Wlmfalxt Results Test NameValueInterpretationReference RangeFacilityBEDSIDE GLUCOSEon 01-01-2025 Glucose [Mass/Vol]251 mg/nEDphp02-57DxyMjkcgeUpper Valley Medical CenterComment on above: Performed By: #### BEDG ####[facility] ([address] VIRGlucose [Mass/Vol]199 mg/yZProd39-74LheHxhovuUpper Valley Medical CenterComment on above:Performed By: #### BEDG ####[facility] ([address] [id number] VIRBedside Glucose *Place/Obtain serum glucose if >500 per glucometer.on 80-08-0416Lmsyaor [Mass/Vol]251 mg/bENubs97 - 99 mg/dLMorrow County HospitalInterpretation and review of laboratory resultsAbnoMain Line Health/Main Line HospitalsGlucose [Mass/Vol]199 mg/bMDkcn81 - 99 mg/dLMorrow County Hospital Interpretation and review of laboratory resultsAbnoOsceola Ladd Memorial Medical CenterGlucose [Mass/Vol]189 mg/fNPobp93 - 99 mg/dLMorrow County HospitalInterpretation and review of laboratory resultsAbnoMain Line Health/Main Line HospitalsGlucose [Mass/Vol]242 mg/eKKcbv56 - 99 mg/dL [facility] HospitalInterpretation and review of laboratory resultsAbnoal [facility] Medical CenterGlucose [Mass/Vol]321 mg/iBVkau52 - 99 mg/dLMorrow County HospitalInterpretation and review of laboratory results AbnormalProSurgical Specialty Hospital-Coordinated HlthCBC WITH AUTO DIFFERENTIAL on 66-70-4122TNJMSMQXV ABSOLUTE COUNT (10*3/UL) BY AUTOMATED COUNT0.0 10*3/uL Normal0.0-0.2PUniversity Hospitals Portage [facility] on above:Result Comment: This is an appended report. These results have been appended to a previously preliminary verified report.Performed By: #### CBCA ####[facility] ([facility])[address] [facility] [place], [place] VIRBASOPHILS RELATIVE PERCENT BY AUTOMATED COUNT0.3 %NormalOhioHealth Pickerington Methodist Hospital on above:Result Comment: This is an appended report. These results have been appended to a previously preliminary verified report.Performed By: #### CBCA ####[facility] ([facility])[address] [place], [place] [address]E.[place], [id number] VIR CELLAVISION ANISOCYTOSIS IN BLOOD BY LIGHT MICROSCOPY2+[facility] on above:Result Comment: This is an appended report. These results have been appended to a previously preliminary verified report.Performed By: #### CBCA ####[facility] ([facility])[address] [place] [address], [id number] VIRCELLAVISION DIFFERENTIAL TYPEAUTOMATED DIFFERENTIAL [facility] on above:Result Comment: This is an appended report. These results have been appended to a previously preliminary verified report.Performed By: #### CBCA ####[facility] ([facility])[address] [place], [place] [address]E.[place], [id number] VIRCELLAVISION ELLIPTOCYTES IN BLOOD BY LIGHT MICROSCOPY1+NormalOhioHealth Pickerington Methodist Hospital on above:Result Comment: This is an appended report. These results have been appended to a previously preliminary verified report.Performed By: #### CBCA ####[facility] ([facility])[address] [place] [address] [facility], [id number] VIR CELLAVISION RBC FRAGMENTS1+NormalUpper Valley Medical CenterComaspirus ontonagon hospital on above: Result Comment: This is an appended report. These results have been appended to a previously preliminary verified report.Performed By: #### CBCA ####[facility] ([address] [id number] VIR Eosinophils (Bld) [#/Vol]0.0 10*3/uLNormal0.0-0.4[facility] Comment on above:Result Comment: This is an appended report. These results have been appended to a previously preliminary verified report.Performed By: #### CBCA ####[facility] ([address] [address] VIREOSINOPHILS RELATIVE PERCENT BY AUTOMATED COUNT0.0 %NormalUpper Valley Medical CenterComment on above:Result Comment: This is an appended report. These results have been appended to a previously preliminary verified report. Performed By: #### CBCA ####[facility] ([address], [id number] VIRErythrocyte distribution width (RBC) [Ratio]24.1 % High11.5-15ProTexas Children'S Hospital The WoodlandsComment on above:Performed By: #### CBCA ####[facility] ([address], [id number] VIRHematocrit (Bld) [Volume fraction]37.2 %Jalvbh58-32QjzHmkqcdTexas Children'S Hospital The WoodlandsComment on above:Performed By: #### CBCA ####[facility] ([address] [id number] VIRHemoglobin (Bld) [Mass/Vol] 11.7 g/oEScxxxh50.7-15.5PHolzer HospitalComment on above:Performed By: #### CBCA ####[facility] ([address] [id number] VIRLYMPHOCYTES ABSOLUTE COUNT (10*3/UL) BY AUTOMATED COUNT 0.3 10*3/uLLow1.0-3.5PHolzer HospitalComment on above:Result Comment: This is an appended report. These results have been appended to a previously preliminary verified report.Performed By: #### CBCA ####[facility] ([address], [id number] VIRLYMPHOCYTES RELATIVE PERCENT BY AUTOMATED COUNT3.0 %NormalProTexas Children'S Hospital The WoodlandsComaspirus ontonagon hospital on above:Result Comment: This is an appended report. These results have been appended to a previously preliminary verified report.Performed By: #### CBCA ####[facility] ([address], [id number] VIRMCH (RBC) [Entitic mass]25.8 sgLkn30-96EyrPqfwtiUpper Valley Medical CenterComment on above:Performed By: #### CBCA ####[facility] ([address], [id number] VIRMCHC (RBC) [Mass/Vol]31.3 g/tEAoe89-80 [facility] Medical CenterComment on above:Performed By: #### CBCA ####[facility] ([address], [id number] VIRMCV (RBC) [Entitic vol]82 lOKmmzgw51-435IepSevxsrUpper Valley Medical CenterComment on above: Performed By: #### CBCA ####[facility] ([address], [id number] VIRMONOCYTES ABSOLUTE COUNT (10*3/UL) BY AUTOMATED COUNT0.3 10*3/uLNormal0.0-0.9[facility] on above:Result Comment: This is an appended report. These results have been appended to a previously preliminary verified report.Performed By: #### CBCA ####[facility] ([address], [id number] VIRMONOCYTES RELATIVE PERCENT BY AUTOMATED COUNT2.7 %NormalProTexas Children'S Hospital The WoodlandsComment on above:Result Comment: This is an appended report. These results have been appended to a previously preliminary verified report.Performed By: #### CBCA ####[facility] ([facility])[address] [place], [place] [address]E.[place], [id number] VIRNEUTROPHILS ABSOLUTE COUNT BY AUTOMATED COUNT9.7 10*3/uLHigh1.5-6.6ProTexas Children'S Hospital The WoodlandsComment on above:Result Comment: This is an appended report. These results have been appended to a previously preliminary verified report. Performed By: #### CBCA ####[facility] ([address], [id number] VIRNEUTROPHILS RELATIVE PERCENT BY AUTOMATED COUNT94.0 %NormalUpper Valley Medical CenterComment on above:Result Comment: This is an appended report. These results have been appended to a previously preliminary verified report.Performed By: #### CBCA ####[facility] ([address], [id number] VIRPlatelet mean volume (Bld) [Entitic vol]7.3 fLNormal7-12PHolzer HospitalComment on above:Performed By: #### CBCA ####[facility] ([address], [id number] VIRPlatelets (Bld) [#/Vol]305 10*3/cMYlnebz799-823YmzEbshln [facility]remont HospitalComment on above:Performed By: #### CBCA ####[facility] ([address], [id number] VIRRBC COUNT4.52 X10E12/LNormal3.8-5.2PHolzer HospitalComment on above:Performed By: #### CBCA ####[facility] ([address], [id number] VIRWBC (Bld) [#/Vol]10.3 10*3/uLNormal4-11ProTexas Children'S Hospital The WoodlandsComment on above:Performed By: #### CBCA ####[facility] ([facility] [place] [address] AVE.[place], [id number] VIRCBC auto differentialon 54-43-8069Epkgmwlgonoh Ql (Bld)2+[facility] SystemComment on above:This is an appended report. These results have been appended to a previously preliminary verified report.Basophils (Bld) [#/Vol]0 10*3/uL0.0 - 0.2 10*3/uL [facility] HospitalComment on above:This is an appended report. These results have been appended to a previously preliminary verified report. Basophils/100 WBC (Bld)0.3 %[facility] HospitalComment on above:This is an appended report. These results have been appended to a previously preliminary verified report.Complement C3 fragment (RBC) [Mass/Vol]1+[facility] Comment on above:This is an appended report. These results have been appended to a previously preliminary verified report.Differential cell count method Nom (Bld)AUTOMATED DIFFERENTIALMorrow County HospitalComment on above:This is an appended report. These results have been appended to a previously preliminary verified report.Elliptocytes LM Ql (Bld)1+[facility] SystemComment on above:This is an appended report. These results have been appended to a previously preliminary verified report.Eosinophils (Bld) [#/Vol]0 10*3/uL0.0 - 0.4 10*3/uLSamaritan Hospital SystemComment on above:This is an appended report. These results have been appended to a previously preliminary verified report. Eosinophils/100 WBC (Bld)0 %[facility] HospitalComment on above:This is an appended report. These results have been appended to a previously preliminary verified report.Erythrocyte distribution width (RBC) [Ratio]24.1 %High11.5 - 15 %[facility] HospitalHematocrit (Bld) [Volume fraction]37.2 %35 - 47 % [facility] HospitalHemoglobin (Bld) [Mass/Vol]11.7 g/dL11.7 - 15.5 g/dL [facility] HospitalInterpretation and review of laboratory resultsAbnormal [facility] HospitalLymphocytes (Bld) [#/Vol]0.3 10*3/uLLow1.0 - 3.5 10*3/uL [facility] HospitalComment on above:This is an appended report. These results have been appended to a previously preliminary verified report. Lymphocytes/100 WBC (Bld)3 %[facility] HospitalComment on above:This is an appended report. These results have been appended to a previously preliminary verified report.MCH (RBC) [Entitic mass]25.8 pgLow27 - 34 [facility] HospitalMCHC (RBC) [Mass/Vol]31.3 g/dLLow32 - 36 g/dLMorrow County HospitalMCV (RBC) [Entitic vol]82 fL80 - [address] John'sMonocytes (Bld) [#/Vol]0.3 10*3/uL0.0 - 0.9 10*3/uLMorrow County HospitalComment on above:This is an appended report. These results have been appended to a previously preliminary verified report.Monocytes/100 WBC (Bld)2.7 %[facility] Comment on above:This is an appended report. These results have been appended to a previously preliminary verified report.Neutrophils (Bld) [#/Vol]9.7 10*3/uL High1.5 - 6.6 10*3/uLMorrow County HospitalComment on above:This is an appended report. These results have been appended to a previously preliminary verified report.Neutrophils/100 WBC (Bld)94 %[facility] County HospitalComment on above:This is an appended report. These results have been appended to a previously preliminary verified report.Platelet mean volume (Bld) [Entitic vol]7.3 fL7 - [address] John'sPlatelets (Bld) [#/Vol]305 10*3/uLMorrow County HospitalRBC (Bld) [#/Vol]4.52 10*6/uLMorrow County HospitalWBC LM Ql (Sput)10.3 [facility] CenterCOMPREHENSIVE METABOLIC PANELon 72-33-1253Zsjapmv [Mass/Vol]3.3 g/dLNormal3.2-5.3PHolzer Hospital Comment on above:Performed By: #### CMP ####[facility] ([address] [place] [address] VIRALP [Catalytic activity/Vol]78 U/L Brrqiz04-828KqlLxkshrUpper Valley Medical CenterComment on above:Performed By: #### CMP ####[facility] ([address] [address] VIRALT [Catalytic activity/Vol]12 U/LNormal<=31PHolzer Hospital Comment on above:Performed By: #### CMP ####[address] [place] [address] VIRAnion gap [Moles/Vol]12 mmol/L Normal5-15[facility] Valley Medical CenterComment on above:Performed By: #### CMP ####[address], [place] [address] VIRAST [Catalytic activity/Vol]16 U/LNormal<=41[facility] Comment on above:Performed By: #### CMP ####[facility] ([address] [place] [address] VIRBilirubin [Mass/Vol]0.8 mg/dLNormal 0.3-1.2PHolzer HospitalComment on above:Performed By: #### CMP ####[facility] ([address], [place] [address] VIRCalcium [Mass/Vol]8.8 mg/dLNormal8.5-10.5PH[facility]zer Hospital Comment on above:Performed By: #### CMP ####[facility] ([address] [address] VIRChloride [Moles/Vol]97 mmol/LLow 98-109ProTexas Children'S Hospital The WoodlandsComment on above:Performed By: #### CMP ####[facility] ([facility])[address] [place] [address] AV.[place], [place] [address] VIRCO2 [Moles/Vol]32 mmol/DHpkkyc73-97OleIxbsgc [facility] HospitalComment on above:Performed By: #### CMP ####[facility] ([address] [place] [address] VIRCreatinine [Mass/Vol]0.70 mg/dLNormal 0.40-1.00ProTexas Children'S Hospital The WoodlandsComment on above:Result Comment: METHOD TRACEABLE TO IDMS STANDARDPerformed By: #### CMP ####[facility] ([address] [place] [address] VIREGFR (CKD-EPI) NON-RACE DEPENDENT>^90Normal>=60ProTexas Children'S Hospital The WoodlandsComment on above:Result Comment: eGFR not reported due to non-numeric value for Creatinine.Reported eGFR is based ontheCKD-EPI 2020 equation that doesnot use a race coefficient. Performed By: #### CMP ####[facility] ([address] [place] [address] VIRGlucose [Mass/Vol]194 mg/qDKlrb55-29EbeDynmmnTexas Children'S Hospital The WoodlandsComment on above:Performed By: #### CMP ####[facility] ([address] [place] [address] VIRPotassium [Moles/Vol]3.5 mmol/LNormal3.5-5.0ProTexas Children'S Hospital The WoodlandsComment on above: Performed By: #### CMP ####[facility] ([address] [place] [place] [address] VIRProtein [Mass/Vol]6.4 g/dLNormal6.0-8.0ProDayton Va Medical Centerca Yale HospitalComment on above:Performed By: #### CMP ####[facility] ([address] [address] VIRSodium [Moles/Vol]141 mmol/QColchw056-158WlvOwfvrc [facility] HospitalComment on above: Performed By: #### CMP ####[facility] MEDICAL CAMPUSAriana [address] [address] VIRUrea nitrogen [Mass/Vol]17 mg/dLNormal5-27 [facility] CenterComment on above:Performed By: #### CMP ####[facility] MEDICAL CAMPUSA [address] [address] VIR Comprehensive metabolic panelon 61-14-7616Jjrqkgs [Mass/Vol]3.3 g/dL3.2 - 5.3 g/dLJoint Township District Memorial Hospital Health SystemALP [Catalytic activity/Vol]78 U/L39 - 130 U/L [facility] SystemALT No additional P-5'-P [Catalytic activity/Vol]12 U/L NINF - 31 U/LProMedica Health SystemAnion gap [Moles/Vol]12 mmol/L5 - 15 mmol/L [facility] Health SystemAST [Catalytic activity/Vol]16 U/LNINF - 41 U/LProMedica Health SystemBilirubin [Mass/Vol]0.8 mg/dL0.3 - 1.2 mg/dLSamaritan Hospital System Calcium [Mass/Vol]8.8 mg/dL8.5 - 10.5 mg/dLSamaritan Hospital SystemChloride [Moles/Vol]97 mmol/LLow98 - 109 mmol/LProMedica Health SystemCO2 [Moles/Vol]32 mmol/L22 - 32 mmol/LProMedica Health SystemCreatinine [Mass/Vol]0.7 mg/dL0.40 - 1.00 mg/dLMorrow County HospitalComment on above:METHOD TRACEABLE TO IDMS STANDARDEGFR Non-Race Dependent- [facility] Health SystemComment on above: eGFR not reported due to non-numeric value for Creatinine. Reported eGFR is based on the CKD-EPI 2020 equation that does not use a race coefficient. Glucose [Mass/Vol]194 mg/qCMmqm32 - 99 mg/dLMorrow County Hospital Interpretation and review of laboratory resultsAbnormMary [facility] Hospital Potassium [Moles/Vol]3.5 mmol/L3.5 - 5.0 mmol/LProMedCleveland Clinic Euclid Hospital SystemProtein [Mass/Vol]6.4 g/dL6.0 - 8.0 g/dLAtrium Health Huntersvilleodium [Moles/Vol]141 mmol/L134 - 146 mmol/LProMedica [facility] SystemUrea nitrogen [Mass/Vol]17 mg/dL5 - 27 mg/dLMorrow County HospitalLight Blue Topon 59-66-2512Ahnep TubeAuto ResultedIndiana Regional Medical CenterMAGNESIUMon 01-01-2025 Magnesium [Mass/Vol]2.1 mg/dLNormal1.8-2.6[facility] CenterComment on above:Performed By: #### MG ####[facility] ([address] [address] VIRMagnesiumon 42-88-7240Mmpgkwqogzvucb and review of laboratory resultsNormalSamaritan Hospital SystemMagnesium [Mass/Vol]2.1 mg/dL1.8 - 2.6 mg/dLMorrow County HospitalNo Panel Informationon 01-01-2025 [facility] HospitalPOTASSIUMon 35-92-7951Tbrypkqbn [Moles/Vol]4.3 mmol/L Normal3.5-5.0[facility] CenterComment on above:Performed By: #### K ####[facility] ([address] [address] VIRPotassiumon 84-62-6425Mrmaqtccjifvvh and review of laboratory results NormalMorrow County HospitalPotassium [Moles/Vol]4.3 mmol/L3.5 - 5.0 mmol/L [facility] Medical CenterBEDSIDE GLUCOSEon 12-31-2024 Glucose [Mass/Vol]189 mg/mOEavh92-35IerWdmbxfUpper Valley Medical CenterComment on above: Performed By: #### BEDG ####[facility] ([facility])[address], [id number] VIRGlucose [Mass/Vol]242 mg/tOFeuq73-64ArzTtsfcbUpper Valley Medical CenterComment on above:Performed By: #### BEDG ####[facility] ([facility])[address], [id number] VIRGlucose [Mass/Vol] 321 mg/gTBzwh59-98YorJhdceiTexas Children'S Hospital The WoodlandsComment on above:Performed By: #### BEDG ####[facility] ([facility])[address] [place], [place] [address]E[place] [address] VIRBedside Glucose *Place/Obtain serum glucose if >500 per glucometer.on 55-67-6465Vojzwik [Mass/Vol]198 mg/oJUwpk52 - 99 mg/dLMorrow County Hospital Interpretation and review of laboratory resultsAbnoOsceola Ladd Memorial Medical CenterCBC WITH AUTO DIFFERENTIALon 59-37-1795XGEAROYUS ABSOLUTE COUNT (10*3/UL) BY AUTOMATED COUNT0.0 10*3/uLNormal0.0-0.2PUniversity Hospitals Port[facility] on above:Result Comment: This is an appended report. These results have been appended to a previously preliminary verified report.Performed By: #### CBCA ####[facility] ([facility])[address], [id number] VIRBASOPHILS RELATIVE PERCENT BY AUTOMATED COUNT0.4 %Normal [facility] on above:Result Comment: This is an appended report. These results have been appended to a previously preliminary verified report.Performed By: #### CBCA ####[facility] ([facility])[address] [place], [place] [address]E.[place], [id number] VIRCELLAVISION ANISOCYTOSIS IN BLOOD BY LIGHT MICROSCOPY2+NormalOhioHealth Pickerington Methodist Hospital on above:Result Comment: This is an appended report. These results have been appended to a previously preliminary verified report.Performed By: #### CBCA ####[facility] ([address], [id number] VIRCELLAVISION DIFFERENTIAL TYPEAUTOMATED DIFFERENTIALNormalOhioHealth [facility] on above:Result Comment: This is an appended report. These results have been appended to a previously preliminary verified report.Performed By: #### CBCA ####[facility] ([address], [id number] VIRCELLAVISION HYPOCHROMIA IN BLOOD BY LIGHT MICROSCOPY2+NormalUpper Valley Medical CenterComaspirus ontonagon hospital on above:Result Comment: This is an appended report. These results have been appended to a previously preliminary verified report. Performed By: #### CBCA ####[address], [id number] VIRCELLAVISION RBC MORPHOLOGYReviewedNormalUpper Valley Medical CenterComaspirus ontonagon hospital on above:Result Comment: This is an appended report. These results have been appended to a previously preliminary verified report. Performed By: #### CBCA ####[facility] ([address], [id number] VIREosinophils (Bld) [#/Vol]0.0 10*3/uLNormal0.0-0.4 [facility] on above:Result Comment: This is an appended report. These results have been appended to a previously preliminary verified report.Performed By: #### CBCA ####[facility] ([address], [id number] VIREOSINOPHILS RELATIVE PERCENT BY AUTOMATED COUNT0.2 %[facility]Medica Flower HospitalComaspirus ontonagon hospital on above:Result Comment: This is an appended report. These results have been appended to a previously prelimi nary verified report.Performed By: #### CBCA ####[facility] ([address], [id number] VIRErythrocyte distribution width (RBC) [Ratio]23.3 %High11.5-15[facility] Medical CenterComment on above: Performed By: #### CBCA ####[facility] ([facility])[address] [place] [address].[place], [id number] VIRHematocrit (Bld) [Volume fraction]33.6 %Xiw09-52 [facility] Medical CenterComment on above:Performed By: #### CBCA ####[facility] CAMPUSAriana [facility] ([facility])[address] [place] [address].[place], [id number] VIRHemoglobin (Bld) [Mass/Vol]10.6 g/dLLow11.7-15.5PHolzer HospitalComment on above: Performed By: #### CBCA ####[facility] ([address], [id number] VIRLYMPHOCYTES ABSOLUTE COUNT (10*3/UL) BY AUTOMATED COUNT0.5 10*3/uLLow1.0-3.5PHolzer HospitalComment on above:Result Comment: This is an appended report. These results have been appended to a previously preliminary verified report.Performed By: #### CBCA ####[facility] ([address], [id number] VIR LYMPHOCYTES RELATIVE PERCENT BY AUTOMATED COUNT9.2 %NormalProTexas Children'S Hospital The WoodlandsComaspirus ontonagon hospital on above:Result Comment: This is an appended report. These results have been appended to a previously preliminary verified report.Performed By: #### CBCA ####[facility] ([facility])[address] [place] [address], [id number] VIRMCH (RBC) [Entitic mass]25.9 bfWuc03-06LlhXglnguUpper Valley Medical CenterComment on above:Performed By: #### CBCA ####[facility] ([address], [id number] VIRMCHC (RBC) [Mass/Vol]31.4 g/sGLyv86-02DzvFskmacTexas Children'S Hospital The WoodlandsComment on above:Performed By: #### CBCA ####[facility] CAMPUSAriana [facility] ([facility])[address] [place] [address], [id number] VIRMCV (RBC) [Entitic vol]83 lABnsrvt84-413OwqChjfsv [facility] HospitalComment on above:Performed By: #### CBCA ####[facility] ([facility])[address] [place] [address], [id number] VIRMONOCYTES ABSOLUTE COUNT (10*3/UL) BY AUTOMATED COUNT0.0 10*3/uLNormal0.0-0.9[facility] Medical CenterComaspirus ontonagon hospital on above:Result Comment: This is an appended report. These results have been appended to a previously preliminary verified report.Performed By: #### CBCA ####[facility] CAMPUSAriana [facility] ([address], [id number] VIRMONOCYTES RELATIVE PERCENT BY AUTOMATED COUNT0.8 %NormalProTexas Children'S Hospital The WoodlandsComment on above:Result Comment: This is an appended report. These results have been appended to a previously preliminary verified report.Performed By: #### CBCA ####[facility]AMPUSAriana [facility] ([address], [id number] VIRNEUTROPHILS ABSOLUTE COUNT BY AUTOMATED COUNT4.5 10*3/uL Normal1.5-6.6[facility] Medical CenterComment on above:Result Comment: This is an appended report. These results have been appended to a previously preliminary verified report.Performed By: #### CBCA ####[facility] ([address], [id number] VIRNEUTROPHILS RELATIVE PERCENT BY AUTOMATED COUNT89.4 %NormalProTexas Children'S Hospital The WoodlandsComment on above:Result Comment: This is an appended report. These results have been appended to a previously preliminary verified report.Performed By: #### CBCA ####[facility] ([facility])[address] [place] [address] A[place], [id number] VIRPlatelet mean volume (Bld) [Entitic vol]7.3 fLNormal7-12PHolzer HospitalComment on above:Performed By: #### CBCA ####[facility] ([address], [id number] VIRPlatelets (Bld) [#/Vol]282 10*3/uL Qxgmpj543-437MvsIkicuwTexas Children'S Hospital The WoodlandsComment on above:Performed By: #### CBCA ####[facility] ([facility])[address] [place] [address].[place], [id number] VIRRBC COUNT4.08 X10E12/LNormal3.8-5.2PHolzer HospitalComment on above:Performed By: #### CBCA ####[facility] ([address], [id number] VIRWBC (Bld) [#/Vol]5.0 10*3/uLNormal4-11 [facility] CenterComment on above:Performed By: #### CBCA ####[facility] ([facility])[address] [place] [address].[place], [id number] VIRCBC auto differentialon [id number] Ql (Bld)2+[facility] County HospitalComment on above:This is an appended report. These results have been appended to a previously preliminary verified report.Basophils (Bld) [#/Vol]0 10*3/uL0.0 - 0.2 10*3/uLMorrow County HospitalComment on above:This is an appended report. These results have been appended to a previously preliminary verified report. Basophils/100 WBC (Bld)0.4 %[facility] County HospitalComment on above:This is an appended report. These results have been appended to a previously preliminary verified report.Differential cell count method Nom (Bld)AUTOMATED DIFFERENTIAL [facility] County HospitalComment on above:This is an appended report. These results have been appended to a previously preliminary verified report. Eosinophils (Bld) [#/Vol]0 10*3/uL0.0 - 0.4 10*3/uLMorrow County Hospital Comment on above:This is an appended report. These results have been appended to a previously preliminary verified report.Eosinophils/100 WBC (Bld)0.2 % [facility] HospitalComment on above:This is an appended report. These results have been appended to a previously preliminary verified report. Erythrocyte distribution width (RBC) [Ratio]23.3 %High11.5 - 15 %[facility] HospitalHematocrit (Bld) [Volume fraction]33.6 %Low35 - 47 %[facility] HospitalHemoglobin (Bld) [Mass/Vol]10.6 g/dLLow11.7 - 15.5 g/dLMorrow County HospitalHypochromia Ql (Bld)2+[facility] HospitalComment on above:This is an appended report. These results have been appended to a previously preliminary verified report.Interpretation and review of laboratory results AbnormalMorrow County HospitalLymphocytes (Bld) [#/Vol]0.5 10*3/uLLow1.0 - 3.5 10*3/uLMorrow County HospitalComment on above:This is an appended report. These results have been appended to a previously preliminary verified report. Lymphocytes/100 WBC (Bld)9.2 %[facility] HospitalComment on above:This is an appended report. These results have been appended to a previously preliminary verified report.MCH (RBC) [Entitic mass]25.9 pgLow27 - 34 [facility] HospitalMCHC (RBC) [Mass/Vol]31.4 g/dLLow32 - 36 g/dLMorrow County HospitalMCV (RBC) [Entitic vol]83 fL80 - [address] John'sMonocytes (Bld) [#/Vol]0 10*3/uL0.0 - 0.9 10*3/uLMorrow County HospitalComment on above:This is an appended report. These results have been appended to a previously preliminary verified report.Monocytes/100 WBC (Bld)0.8 %[facility] Comment on above:This is an appended report. These results have been appended to a previously preliminary verified report.Neutrophils (Bld) [#/Vol]4.5 10*3/uL 1.5 - 6.6 10*3/[facility] HospitalComment on above:This is an appended report. These results have been appended to a previously preliminary verified re port.Neutrophils/100 WBC (Bld)89.4 %[facility] HospitalComment on above:This is an appended report. These results have been appended to a previously preliminary verified report.Platelet mean volume (Bld) [Entitic vol]7.3 fL7 - [address] John'sPlatelets (Bld) [#/Vol]282 10*3/[facility] HospitalRBC (Bld) [#/Vol]4.08 10*6/[facility] (Bld) [#/Vol] ReviewedMorrow County HospitalComment on above:This is an appended report. These results have been appended to a previously preliminary verified report.WBC LM Ql (Sput)5PEncompass Health Rehabilitation Hospital of ErieCOMPREHENSIVE METABOLIC PANELon 70-73-7798Yiwhadi [Mass/Vol]3.1 g/dLLow3.2-5.3PHolzer HospitalComment on above:Performed By: #### CMP ####[facility] ([facility])[address] [place] [address] [place] [address] VIRALP [Catalytic activity/Vol]81 U/TSkdjwf55-691HwgCgirvuUpper Valley Medical CenterComment on above: Performed By: #### CMP ####[facility] ([facility])[address] [place] [address] [place] [address] VIRALT [Catalytic activity/Vol]12 U/LNormal<=31 [facility] Medical CenterComment on above:Performed By: #### CMP ####[facility] ([address] [address] VIRAnion gap [Moles/Vol]13 mmol/LNormal5-15[facility] Medical CenterComment on above: Performed By: #### CMP ####[facility] ([address] [place] [address] VIRAST [Catalytic activity/Vol]13 U/LNormal<=41 [facility] CenterComment on above:Performed By: #### CMP ####[facility] ([address] [place] [address] VIRBilirubin [Mass/Vol]0.8 mg/dLNormal0.3-1.2PHolzer HospitalComment on above: Performed By: #### CMP ####[facility] ([address] [place] [address] VIRCalcium [Mass/Vol]8.1 mg/dLLow8.5-10.5PHolzer HospitalComment on above:Performed By: #### CMP ####[facility] ([address] [address] VIRChloride [Moles/Vol]96 mmol/UMdw33-063JxqViyjxyTexas Children'S Hospital The WoodlandsComment on above: Performed By: #### CMP ####[facility] ([address] [place] [address] VIRCO2 [Moles/Vol]29 mmol/WZxkbim08-32FzuBzqtniHolzer HospitalComment on above:Performed By: #### CMP ####[facility] ([address] [place] [address] VIRCreatinine [Mass/Vol]0.65 mg/dLNormal0.40-1.00ProTexas Children'S Hospital The WoodlandsComment on above: Result Comment: METHOD TRACEABLE TO IDMS STANDARDPerformed By: #### CMP ####[facility] ([address], [place] [address] VIREGFR (CKD-EPI) NON-RACE DEPENDENT>^90Normal>=60ProTexas Children'S Hospital The WoodlandsComment on above:Result Comment: eGFR not reported due to non-numeric value for Creatinine.Reported eGFR is based ontheCKD-EPI 2020 equation that doesnot use a race coefficient.Performed By: #### CMP ####[facility] ([address] [place] [address] VIRGlucose [Mass/Vol]182 mg/kOBlvy42-07NlmQbwfjwTexas Children'S Hospital The WoodlandsComment on above:Performed By: #### CMP ####[facility] ([address] [place] [place] [address] VIRPotassium [Moles/Vol]2.8 mmol/LLow3.5-5.0[facility] Medical CenterComment on above:Performed By: #### CMP ####[facility] ([address] [place] [address] VIRProtein [Mass/Vol]5.9 g/dLLow6.0-8.0ProTexas Children'S Hospital The WoodlandsComment on above:Performed By: #### CMP ####[facility] ([address] [place] [address] VIRSodium [Moles/Vol]138 mmol/AHkeaur113-647JehNommpx [facility]remont HospitalComment on above:Performed By: #### CMP ####[facility] ([address] [place] [address] VIRUrea nitrogen [Mass/Vol]13 mg/dLNormal5-27ProTexas Children'S Hospital The WoodlandsComment on above:Performed By: #### CMP ####[facility] ([address] [address] VIRComprehensive metabolic panelon [id number] [Mass/Vol]3.1 g/dLLow3.2 - 5.3 g/dLProMercy Health St. [facility] Hospital SystemALP [Catalytic activity/Vol]81 U/L39 - 130 U/LProMedLake County Memorial Hospital - WestALT No additional P-5'-P [Catalytic activity/Vol]12 U/LNINF - 31 U/LProMedica Health SystemAnion gap [Moles/Vol]13 mmol/L5 - 15 mmol/LProMedica Health SystemAST [Catalytic activity/Vol]13 U/LNINF - 41 U/LProMedica Health SystemBilirubin [Mass/Vol]0.8 mg/dL0.3 - 1.2 mg/dLProMercy Health St. Elizabeth Board[facility] Hospital SystemCalcium [Mass/Vol]8.1 mg/dLLow8.5 - 10.5 mg/dLProUab Hospital Highlands Health SystemChloride [Moles/Vol]96 mmol/LLow98 - 109 mmol/L [facility] HospitalCO2 [Moles/Vol]29 mmol/L22 - 32 mmol/LPrUCHealth Highlands Ranch Hospital Health SystemCreatinine [Mass/Vol]0.65 mg/dL0.40 - 1.00 mg/dLSamaritan Hospital System Comment on above:METHOD TRACEABLE TO IDMS STANDARDEGFR Non-Race Dependent- PINF [facility] HospitalComment on above:eGFR not reported due to non-numeric value for Creatinine. Reported eGFR is based on the CKD-EPI 2020 equation that does not use a race coefficient. Glucose [Mass/Vol]182 mg/fTEysh40 - 99 mg/dLMorrow County Hospital Interpretation and review of laboratory resultsAbnormalProMercy Health St. [facility] Hospital System Potassium [Moles/Vol]2.8 mmol/LLow3.5 - 5.0 mmol/LPrRanken Jordan Pediatric Specialty Hospitalica Health SystemProtein [Mass/Vol]5.9 g/dLLow6.0 - 8.0 g/dLSamaritan Hospital SystemSodium [Moles/Vol]138 mmol/L134 - 146 mmol/[facility] Tylerica Health SystemUrea nitrogen [Mass/Vol]13 mg/dL5 - 27 mg/dLSamaritan Hospital SystemMAGNESIUMon 51-13-1819Lgeizinzr [Mass/Vol]2.0 mg/dLNormal1.8-2.6[facility] CenterComment on above:Performed By: #### MG ####[facility]PITALEDICLOS [facility] ([address] [place] [address] VIRMagnesiumon 15-24-8093Phzqgslpxwdvjh and review of laboratory results NormalProMedica Health SystemMagnesium [Mass/Vol]2 mg/dL1.8 - 2.6 mg/dLSamaritan Hospital SystemNo Panel Informationon 17-21-9381HmlNvkoup Health SystemPOTASSIUM on 06-23-7647Ykgkyuorv [Moles/Vol]3.3 mmol/LLow3.5-5.0[facility] Comment on above:Performed By: #### K ####[facility] MEDICAL CAMPUSAriana [facility] ([facility])[address] [place] [address] VIRPotassium [Moles/Vol]3.1 mmol/LLow 3.5-5.0[facility] Medical CenterComment on above:Performed By: #### K ####[facility] ([facility])[address] [place] [address] VIRPotassiumon 49-14-4238Bufqtskxyzpkdk and review of laboratory results AbnormalProUab Hospital Highlands Health SystemPotassium [Moles/Vol]3.3 mmol/LLow3.5 - 5.0 mmol/LProMedica Health SystemProUab Hospital Highlands Health SystemInterpretation and review of laboratory resultsAbnormalJoint Township District Memorial Hospital Health SystemPotassium [Moles/Vol]3.1 mmol/LLow3.5 - 5.0 mmol/LProMedica Health SystemJoint Township District Memorial Hospital Health SystemAPTTon 69-97-4759aZDL Coag (PPP) [Time]32 sPrCleveland Clinic Foundation SystemInterpretation and review of laboratory resultsNormalSamaritan Hospital SystemaPTT Coag (Bld) [Time] 32 jMrpghc61-85BvlDcejrsTexas Children'S Hospital The WoodlandsComment on above:Performed By: #### PTT ####[facility] ([facility])[address] [place] [address] VIRB-TYPE NATRIURETIC PEPTIDEon 56-31-1895Yslnnnpewse peptide B (Bld) [Mass/Vol]248 pg/mLHigh<=100[facility] Medical CenterComment on above:Performed By: #### BNP ####[facility] ([facility])[address] [place] [address] VIRB-type natriuretic peptideon 72-00-7535Nowpipqdnbkcmr and review of laboratory resultsAbnormMary Rutan HospitalNatriuretic peptide B (Bld) [Mass/Vol]248 pg/mLHighNINF - 100 pg/mLSCI-Waymart Forensic Treatment CenterBEDSIDE GLUCOSEon 14-82-0883Rzfqkul [Mass/Vol]198 mg/dL Oovj48-74PfdRskmktOhioHealth Pickerington Methodist Hospital on above:Performed By: #### BEDG ####[facility] ([facility])[address], [id number] VIRCBC WITH AUTO DIFFERENTIALon 02-62-9973HHNDNJSER ABSOLUTE COUNT (10*3/UL) BY AUTOMATED COUNT0.0 10*3/uLNormal0.0-0.2ProMedKaiser Foundation Hospital on above:Result Comment: This is an appended report. These results have been appended to a previously preliminary verified report.Performed By: #### CBCA ####[facility] ([facility])[address] [place] [address], [id number] VIRBASOPHILS RELATIVE PERCENT BY AUTOMATED COUNT0.2 %NormalOhioHealth Pickerington Methodist Hospital on above:Result Comment: This is an appended report. These results have been appended to a previously preliminary verified report.Performed By: #### CBCA ####[facility] ([address], [id number] VIRCELLAVISION ANISOCYTOSIS IN BLOOD BY LIGHT MICROSCOPY2+ NormalOhioHealth Pickerington Methodist Hospital on above:Result Comment: This is an appended report. These results have been appended to a previously preliminary verified report.Performed By: #### CBCA ####[facility] ([address], [id number] VIRCELLAVISION DIFFERENTIAL TYPE AUTOMATED DIFFERENTIALNormalOhioHealth Pickerington Methodist Hospital on above:Result Comment: This is an appended report. These results have been appended to a previously preliminary verified report.Performed By: #### CBCA ####[facility] ([facility])[address] [place] [address], [id number] VIR CELLAVISION ELLIPTOCYTES IN BLOOD BY LIGHT MICROSCOPY1+[facility] on above:Result Comment: This is an appended report. These results have been appended to a previously preliminary verified report.Performed By: #### CBCA ####[facility] ([address], [id number] VIREosinophils (Bld) [#/Vol]0.2 10*3/uLNormal0.0-0.4 [facility] on above:Result Comment: This is an appended report. These results have been appended to a previously preliminary verified report.Performed By: #### CBCA ####[address], [id number] VIREOSINOPHILS RELATIVE PERCENT BY AUTOMATED COUNT2.3 %NormalUpper Valley Medical CenterComaspirus ontonagon hospital on above:Result Comment: This is an appended report. These results have been appended to a previously prelimi nary verified report.Performed By: #### CBCA ####[facility] ([address], [id number] VIRErythrocyte distribution width (RBC) [Ratio]23.8 %High11.5-15[facility] Medical CenterComment on above: Performed By: #### CBCA ####[facility] ([address], [id number] VIRHematocrit (Bld) [Volume fraction]35.3 %Hrsrko80-19 [facility] Medical CenterComaspirus ontonagon hospital on above:Performed By: #### CBCA ####[facility] ([address], [id number] VIRHemoglobin (Bld) [Mass/Vol]11.0 g/dLLow11.7-15.5PHolzer HospitalComment on above: Performed By: #### CBCA ####[facility] ([address], [id number] VIRLYMPHOCYTES ABSOLUTE COUNT (10*3/UL) BY AUTOMATED COUNT0.4 10*3/uLLow1.0-3.5PHolzer HospitalComment on above:Result Comment: This is an appended report. These results have been appended to a previously preliminary verified report.Performed By: #### CBCA ####[facility] ([address], [id number] VIR LYMPHOCYTES RELATIVE PERCENT BY AUTOMATED COUNT5.4 %NormalProTexas Children'S Hospital The WoodlandsComment on above:Result Comment: This is an appended report. These results have been appended to a previously preliminary verified report.Performed By: #### CBCA ####[facility] ([address], [id number] VIRMCH (RBC) [Entitic mass]25.9 ptBgl26-19RbsRcsshzTexas Children'S Hospital The WoodlandsComment on above:Performed By: #### CBCA ####[facility] ([address], [id number] VIRMCHC (RBC) [Mass/Vol]31.2 g/yTPrx60-82DlkIrykreUpper Valley Medical CenterComment on above:Performed By: #### CBCA ####[facility] ([address], [id number] VIRMCV (RBC) [Entitic vol]83 zRBmrtnw38-868XuaGbkvsa Fremont HospitalComment on above:Performed By: #### CBCA ####[facility] ([address], [id number] VIRMONOCYTES ABSOLUTE COUNT (10*3/UL) BY AUTOMATED COUNT0.2 10*3/uLNormal0.0-0.9[facility] Medical CenterComaspirus ontonagon hospital on above:Result Comment: This is an appended report. These results have been appended to a previously preliminary verified report.Performed By: #### CBCA ####[facility] ([facility])[address] [place] [address], [id number] VIRMONOCYTES RELATIVE PERCENT BY AUTOMATED COUNT3.3 %NormalUpper Valley Medical CenterComaspirus ontonagon hospital on above:Result Comment: This is an appended report. These results have been appended to a previously preliminary verified report.Performed By: #### CBCA ####[facility] ([address], [id number] VIRNEUTROPHILS ABSOLUTE COUNT BY AUTOMATED COUNT6.5 10*3/uL Normal1.5-6.6[facility] Medical CenterComaspirus ontonagon hospital on above:Result Comment: This is an appended report. These results have been appended to a previously preliminary verified report.Performed By: #### CBCA ####[facility] ([address], [id number] VIRNEUTROPHILS RELATIVE PERCENT BY AUTOMATED COUNT88.8 %NormalUpper Valley Medical CenterComment on above:Result Comment: This is an appended report. These results have been appended to a previously preliminary verified report.Performed By: #### CBCA ####[facility]ICAL CAMPUSAriana [facility] ([address], [id number] VIRPlatelet mean volume (Bld) [Entitic vol]7.2 fLNormal7-12ProMedica Scripps Memorial HospitalComment on above:Performed By: #### CBCA ####[facility] ([address], [id number] VIRPlatelets (Bld) [#/Vol]276 10*3/uL Ivtfci709-775FepFhesfuTexas Children'S Hospital The WoodlandsComment on above:Performed By: #### CBCA ####[facility] ([facility])[address] [place] [address].[place], [id number] VIRRBC COUNT4.26 X10E12/LNormal3.8-5.2ProMedica Scripps Memorial HospitalComment on above:Performed By: #### CBCA ####[facility] ([facility])[address] [place] [address], [id number] VIRWBC (Bld) [#/Vol]7.3 10*3/uLNormal4-11 [facility] CenterComment on above:Performed By: #### CBCA ####[facility] ([facility])[address] [place] [address], [id number] VIRCBC auto differentialon 25-15-7855Mibpluypjfmv Ql (Bld)2+[facility] HospitalComment on above:This is an appended report. These results have been appended to a previously preliminary verified report.Basophils (Bld) [#/Vol]0 10*3/uL0.0 - 0.2 10*3/uLProMercy Health St. Elizabeth Boardman Hospital SystemComment on above:This is an appended report. These results have been appended to a previously preliminary verified report. Basophils/100 WBC (Bld)0.2 %[facility] HospitalComment on above:This is an appended report. These results have been appended to a previously preliminary verified report.Differential cell count method Nom (Bld)AUTOMATED DIFFERENTIAL [facility] HospitalComment on above:This is an appended report. These results have been appended to a previously preliminary verified report. Elliptocytes LM Ql (Bld)1+[facility] Hospital SystemComment on above:This is an appended report. These results have been appended to a previously preliminary verified report.Eosinophils (Bld) [#/Vol]0.2 10*3/uL0.0 - 0.4 10*3/uLProDayton Va Medical Centerca Trinity [facility] Campus SystemComment on above:This is an appended report. These results have been appended to a previously preliminary verified report.Eosinophils/100 WBC (Bld)2.3 %[facility] HospitalComment on above:This is an appended report. These results have been appended to a previously preliminary verified report. Erythrocyte distribution width (RBC) [Ratio]23.8 %High11.5 - 15 %ProMedica Health SystemHematocrit (Bld) [Volume fraction]35.3 %35 - 47 %[facility] HospitalHemoglobin (Bld) [Mass/Vol]11 g/dLLow11.7 - 15.5 g/dLMorrow County HospitalInterpretation and review of laboratory resultsAbnormalMorrow County HospitalLymphocytes (Bld) [#/Vol]0.4 10*3/uLLow1.0 - 3.5 10*3/uLSamaritan Hospital SystemComment on above:This is an appended report. These results have been appended to a previously preliminary verified report.Lymphocytes/100 WBC (Bld) 5.4 %[facility] HospitalComment on above:This is an appended report. These results have been appended to a previously preliminary verified report.MCH (RBC) [Entitic mass]25.9 pgLow27 - 34 [facility] HospitalMCHC (RBC) [Mass/Vol] 31.2 g/dLLow32 - 36 g/dLMorrow County HospitalMCV (RBC) [Entitic vol]83 fL80 - [address] John'sMonocytes (Bld) [#/Vol]0.2 10*3/uL0.0 - 0.9 10*3/uL [facility] HospitalComment on above:This is an appended report. These results have been appended to a previously preliminary verified report. Monocytes/100 WBC (Bld)3.3 %[facility] HospitalComment on above:This is an appended report. These results have been appended to a previously preliminary verified report.Neutrophils (Bld) [#/Vol]6.5 10*3/uL1.5 - 6.6 10*3/uLMorrow County HospitalComment on above:This is an appended report. These results have been appended to a previously preliminary verified report.Neutrophils/100 WBC (Bld)88.8 %[facility] HospitalComment on above:This is an appended report. These results have been appended to a previously preliminary verified report. Platelet mean volume (Bld) [Entitic vol]7.2 fL7 - [address] [facility] Platelets (Bld) [#/Vol]276 10*3/uLMorrow County HospitalRBC (Bld) [#/Vol]4.26 10*6/uLMorrow County HospitalWBC LM Ql (Sput)7.3PLehigh Valley Hospital - MuhlenbergCOMPREHENSIVE METABOLIC PANELon 70-07-6375Nhrrlfd [Mass/Vol]3.4 g/dLNormal3.2-5.3PHolzer HospitalComment on above: Performed By: #### CMP ####[facility] ([facility])[address] [place], [place] [address] [address] VIRALP [Catalytic activity/Vol]87 U/DLdnqnd28-301 [facility] CenterComment on above:Performed By: #### CMP ####[facility] ([address] [place] [address] VIRALT [Catalytic activity/Vol]14 U/LNormal<=31PHolzer HospitalComment on above:Performed By: #### CMP ####[facility] ([address] [place] [address] VIRAnion gap [Moles/Vol]12 mmol/LNormal5-15 [facility] CenterComment on above:Performed By: #### CMP ####[facility] ([address] [place] [address] VIRAST [Catalytic activity/Vol]18 U/LNormal<=41[facility] CenterComment on above:Performed By: #### CMP ####[facility] ([address] [place] [address] VIRBilirubin [Mass/Vol]0.9 mg/dLNormal0.3-1.2 [facility] CenterComment on above:Performed By: #### CMP ####[facility] ([address] [place] [address] VIRCalcium [Mass/Vol]8.2 mg/dLLow8.5-10.5PHolzer HospitalComment on above: Performed By: #### CMP ####[facility] ([address] [place] [address] VIRChloride [Moles/Vol]93 mmol/SXjt53-964CtcMvkfrzTexas Children'S Hospital The WoodlandsComment on above:Performed By: #### CMP ####[facility] ([address] [place] [address] VIRCO2 [Moles/Vol]29 mmol/QEbhetc21-27PunTqawnl [facility]ripps Memorial HospitalComment on above:Performed By: #### CMP ####[facility] ([address] [place] [address] VIRCreatinine [Mass/Vol]0.87 mg/dLNormal0.40-1.00[facility] CenterComment on above:Result Comment: METHOD TRACEABLE TO IDMS STANDARD Performed By: #### CMP ####[facility] ([address] [address] VIRGFR/1.73 sq M.predicted among non-blacks MDRD (S/P/Bld) [Vol rate/Area]74 mL/min/{1.73_m2}Normal>=60[facility] Comment on above:Result Comment: eGFR not reported due to non-numeric value for Creatinine.Reported eGFR is based ontheCKD-EPI 1 equation that doesnot use a race coefficient.Performed By: #### CMP ####[facility] ([address] [place] [address] VIRGlucose [Mass/Vol]216 mg/dLHigh 65-99ProTexas Children'S Hospital The WoodlandsComment on above:Performed By: #### CMP ####[facility] ([address] [address] VIRPotassium [Moles/Vol]2.8 mmol/LLow3.5-5.0[facility] Comment on above:Performed By: #### CMP ####[facility])[address] [address] VIRProtein [Mass/Vol]6.3 g/dLNormal 6.0-8.0[facility] CenterComment on above:Performed By: #### CMP ####[facility] ([facility])[address], [place] [address] VIRSodium [Moles/Vol]134 mmol/TAbznqp852-187EbxJuanvn [facility] Comment on above:Performed By: #### CMP ####[facility] ([facility])[address] [place] [address] [place] [address] VIRUrea nitrogen [Mass/Vol]17 mg/dL Normal5-27ProTexas Children'S Hospital The WoodlandsComment on above:Performed By: #### CMP ####[address], [place] [address] VIRCT CTA CHESTon 75-25-4273ST CTA CHESTNormalProTexas Children'S Hospital The WoodlandsCT Chest WO and CT angiogram Coronary arteries W contrast Atiya 91-62-8947VR CTA CHEST CLINICAL INFORMATION: elevated dimer, hypoxia [...] Prominent atherosclerotic calcifications in the aorta. Severe [place] coronary artery calcifications. There is prominence of [...] Prominent atherosclerotic calcifications in the aorta. Severe [place] coronary artery calcifications. There is prominence of [...] Artur Rosen MD on 12/30/2024 5:07 PM PathfireRadiology Study observation (narrative)[facility] HospitalWork For Pie SystemCT Chest WO and CT angiogram Coronary arteries W contrast IVOrdered By: Artur Rosen on 66-88-1800RhlBclwcdCrowdly Work Phone: Comprehensive metabolic panelon 36-87-6203Teclnoy [Mass/Vol]3.4 g/dL3.2 - 5.3 g/dLSamaritan Hospital SystemALP [Catalytic activity/Vol]87 U/L39 - 130 U/[facility] Health SystemALT No additional P-5'-P [Catalytic activity/Vol]14 U/LNINF - 31 U/[facility] Health SystemAnion gap [Moles/Vol]12 mmol/L5 - 15 mmol/LPrUCHealth Highlands Ranch Hospital Health SystemAST [Catalytic activity/Vol]18 U/LNINF - 41 U/[facility] SystemBilirubin [Mass/Vol]0.9 mg/dL0.3 - 1.2 mg/dLMorrow County HospitalCalcium [Mass/Vol]8.2 mg/dLLow8.5 - 10.5 mg/dLMorrow County HospitalChloride [Moles/Vol]93 mmol/LLow98 - 109 mmol/L [facility] HospitalCO2 [Moles/Vol]29 mmol/L22 - 32 mmol/[facility] SystemCreatinine [Mass/Vol]0.87 mg/dL0.40 - 1.00 mg/dLMorrow County Hospital Comment on above:METHOD TRACEABLE TO IDMT STANDARDEGFR Non-Race Gmkkfmep[address] [place], [place] [address]Comment on above:eGFR not reported due to non-numeric value for Creatinine. Reported eGFR is based on the CKD-EPI 2020 equation that does not use a race coefficient. Glucose [Mass/Vol]216 mg/oYCqdk87 - 99 mg/dLMorrow County Hospital Interpretation and review of laboratory resultsAbnormalMorrow County Hospital Potassium [Moles/Vol]2.8 mmol/LLow3.5 - 5.0 mmol/[facility] SystemProtein [Mass/Vol]6.3 g/dL6.0 - 8.0 g/dLAtrium Health Huntersvilleodium [Moles/Vol]134 mmol/L134 - 146 mmol/[facility] SystemUrea nitrogen [Mass/Vol]17 mg/dL5 - 27 mg/dLMorrow County HospitalD-DIMERon 12-30-2024D CYPFH398 ng/mLHigh1-255 [facility] CenterComment on above:Result Comment: Results >255 ng/mL DDU: Results may be indicative of the presence of VTE. The use of the Wells score and further diagnostic tests should be considered. Elevated D-Dimer levels can be associated with DIC, neoplasm, , trauma and liver disease. Elevated levels of rheumatoidfactor may lead to an overestimation of the D-Dimer level.Performed By: #### DDMR ####[address], [place] VIRD-Dimeron 58-74-8575Ulqdfq D-dimer DDU (PPP) [Mass/Vol]514 ng/mLHigh1 - 255 ng/mLMorrow County HospitalComment on above: Results >255 ng/mL DDU: Results may be indicative of the presence of VTE. The use of the Wells score and further diagnostic tests should be considered. Elevated D-Dimer levels can be associated with DIC, neoplasm, , trauma and liver disease. Elevated levels of rheumatoid factor may leadto an overestimation of the D-Dimer level.MAGNESIUMon 28-06-8767Sofhajvzh [Mass/Vol] 1.9 mg/dLNormal1.8-2.6Upper [facility] Medical CenterComment on above:Performed By: #### MG ####[address] [address] VIRMagnesiumon 18-46-2398Cwwfkhkexuecdz and review of laboratory resultsNormMary Rutan HospitalMagnesium [Mass/Vol]1.9 mg/dL1.8 - 2.6 mg/dL [facility] HospitalNo Panel Informationon 84-38-1806Lwoic TubeAuto Resulted [facility] Hospitalca Health SystemJ.W. Ruby Memorial Hospitalca Health System Interpretation and review of laboratory resultsAbnormalAurora BayCare Medical Center SystemPOCT NURSING URINE MACROSCOPIC UAon 89-83-5023CNRIOWKEE NURNegativeNormalNegativeUpper Valley Medical CenterComment on above:Performed By: #### NUM ####[address] [address] VIRBLOOD/HGB NURNegativeNormalNegativeProMedica Yale HospitalComment on above:Performed By: #### NUM ####[facility] ([address] [address] VIRGLUCOSE NURNegativeNormal NegativeProUniversity Hospitals Conneaut Medical Center HospitalComment on above:Performed By: #### NUM ####[facility] ([address] [address] VIRKETONES NURNegativeNormalNegativeWexner Medical Center HospitalComment on above:Performed By: #### NUM ####[facility] ([address] [address] VIRLEUKOCYTE ESTERASE NURNegativeNormalNegative [facility] CenterComment on above:Performed By: #### NUM ####[facility] ([address] [address] VIRNITRITE NURPositiveAbnormalNegativeUpper Valley Medical CenterComment on above:Performed By: #### NUM ####[facility] ([address] [address] VIRPH NUR7.1Jeycjw1.0, 6.0, 6.5, 7.0, 7.5, 8.0, 8.5, 5.5 [facility] Medical CenterComment on above:Performed By: #### NUM ####[facility] ([address] [address] VIRPROTEIN NURNegativeNormalNegativeWexner Medical Center HospitalComment on above:Performed By: #### NUM ####[facility] ([address] [address] VIRSPECIFIC GRAVITY NUR1.865Aywlgt9.010, 1.015, 1.020, 1.025ProTexas Children'S Hospital The WoodlandsComment on above:Performed By: #### NUM ####[facility] ([place])[address] [place] [address] VIRUROBILINOGEN NUR0.2 E.U./dLNormalProTexas Children'S Hospital The WoodlandsComment on above:Performed By: #### NUM ####[facility] ([facility])[address] [place] [place] [address] VIRPOCT Nursing Urine Macroscopic UAon 00-95-6553Yelbnpgoq Ql (U)NegativeNegativeProMedica Health SystemGlucose [Mass/Vol]NegativeNegativeProMedica Health SystemHemoglobin Ql (U)Negative NegativeProMedica Health SystemInterpretation and review of laboratory results AbnormalProMedica Health SystemKetones (U) [Mass/Vol]NegativeNegativeProMedica Health SystemLeukocyte esterase Test strip Ql (U)NegativeNegativeProMedica Health SystemNitrite Ql (U)PositiveAbnormalNegativeProMedica Health SystempH (U) 7.0 [pH]5.0, 6.0, 6.5, 7.0, 7.5, 8.0, 8.5, 5.5ProMedica Health SystemProtein Ql (U)NegativeNegativeProMedica Health SystemSpecific gravity (U) [Rel density] 1.0101.010, 1.015, 1.020, 1.025ProMedica Health SystemUrobilinogen Qn (U) 0.459249264 {Carlos Alberto'U}/dLProMedica Health SystemProMedica Health SystemPROTIME AND INRon 98-80-2050AEH7.0High0.9-1.2PHolzer HospitalComment on above: Performed By: #### PINR ####[facility]ONY MEDICAL CAMPUSAriana [facility] ([facility])[address] [place] [address] [id number] VIRPT Coag (PPP) [Time]22.2 sHigh9.8-13.2PHolzer HospitalComment on above:Performed By: #### PINR ####[facility] ([facility])[address] [place] [address] [id number] VIRProtime & INRon 60-03-1234GNO Coag (Platelet poor plasma or blood) [Relative time]2High0.9 - 1.2 [facility] HospitalPT Coag (PPP) [Time]22.2 [facility] Hospital of YorkTROP I, HIGH SENSITIVITY 1 HOURon 14-95-0118ZIIXEUOD I, HIGH SENSITIVITY6 ng/LNormal <16[facility] CenterComment on above:Performed By: #### TNIHS1 ####[facility] ([address] [address] VIRTROPONIN I, HIGH SENSITIVITY 0 HOURon 09-97-4835SKVBTGCL I, HIGH SENSITIVITY6 ng/LNormal<16ProTexas Children'S Hospital The WoodlandsComment on above:Performed By: #### TNIHS0 ####[facility] ([address] [place] [address] VIRTroponin I, High Sensitivity 0 Houron 12-30-2024 Interpretation and review of laboratory resultsJames J. Peters [facility] Troponin I.cardiac High sensitivity method [Mass/Vol]6 ng/LNINF - 16 ng/L [facility] SystemTroponin I, High Sensitivity 1 Houron 06-81-7342Uwdalccxsrzxsm and review of laboratory resultsNoFrye Regional Medical CenterTroponin I.cardiac High sensitivity method [Mass/Vol]6 ng/LNINF - 16 ng/LProMedDoylestown HealthXR CHEST 1 VWon 12-30-2024 XR CHEST 1 [facility] HamiltonXR Chest Single viewon 12-30-2024 Single view chest [...] Richard Landaverde MD on 12/30/2024 3:32 PM [facility] HospitalRadiology Study observation (narrative)[facility] HospitalXR Chest Single viewOrdered By: Richard Landaverde on 67-96-7368BggYqruduMorrow County Hospital Work Phone: BEDSIDE GLUCOSEon 95-38-6485Srmnxsw [Mass/Vol]126 mg/mIBnsl78-15GloRbiujtTexas Children'S Hospital The WoodlandsComment on above:Performed By: #### BEDG ####[facility] ([facility])[address] [place] [address] VIRCBC WITH AUTO DIFFERENTIALon 28-36-5077KPZBICPZV ABSOLUTE COUNT (10*3/UL) BY AUTOMATED COUNT0.2 10*3/uLNormal0.0-0.2PO[facility] Hospitalica [facility] Comment on above:Performed By: #### CBCA ####[facility] ([facility])[address] [place], [place] [address] VIRBASOPHILS RELATIVE PERCENT BY AUTOMATED COUNT1.6 %NormalUpper Valley Medical CenterComment on above:Performed By: #### CBCA ####[facility] ([facility])[address] [place], [place] [address] VIRCELLAVISION DIFFERENTIAL TYPEAUTOMATED DIFFERENTIAL NormalUpper Valley Medical CenterComment on above:Performed By: #### CBCA ####[facility] ([address], [id number] VIREosinophils (Bld) [#/Vol]0.5 10*3/uLHigh0.0-0.4[facility] Comment on above:Performed By: #### CBCA ####[facility] ([address], [id number] VIREOSINOPHILS RELATIVE PERCENT BY AUTOMATED COUNT5.0 %NormalProTexas Children'S Hospital The WoodlandsComment on above:Performed By: #### CBCA ####[facility] ([address], [id number] VIRErythrocyte distribution width (RBC) [Ratio]18.8 %High 11.5-15[facility] Medical CenterComment on above:Performed By: #### CBCA ####[facility] ([address], [id number] VIRHematocrit (Bld) [Volume fraction]26.8 %Qyy76-53AffZfiernUpper Valley Medical Center Comment on above:Performed By: #### CBCA ####[facility] ([address], [id number] VIRHemoglobin (Bld) [Mass/Vol]8.6 g/dL Low11.7-15.5PHolzer HospitalComment on above:Performed By: #### CBCA ####[facility] ([address], [id number] VIRLYMPHOCYTES ABSOLUTE COUNT (10*3/UL) BY AUTOMATED COUNT1.4 10*3/uLNormal 1.0-3.5PHolzer HospitalComment on above:Performed By: #### CBCA ####[facility] ([address], [id number] VIRLYMPHOCYTES RELATIVE PERCENT BY AUTOMATED COUNT14.4 %NormalProTexas Children'S Hospital The WoodlandsComment on above:Performed By: #### CBCA ####[facility] ([facility])[address] [place], [place] [address]E.[place], [id number] VIRMCH (RBC) [Entitic mass] 25.1 kvNxr09-31QkxVyzarmTexas Children'S Hospital The WoodlandsComment on above:Performed By: #### CBCA ####[facility] ([facility])[address] [place], [place] [address]E.[place] [address] VIRMCHC (RBC) [Mass/Vol]32.1 g/qBVuiqot22-75VccKxaxxvUpper Valley Medical Center Comment on above:Performed By: #### CBCA ####[facility] ([address], [id number] VIRMCV (RBC) [Entitic vol]78 fLLow 80-100ProTexas Children'S Hospital The WoodlandsComment on above:Performed By: #### CBCA ####[facility] ([facility])[address] [place], [place] [address]E.[place], [id number] VIRMONOCYTES ABSOLUTE COUNT (10*3/UL) BY AUTOMATED COUNT1.0 10*3/uLHigh0.0-0.9 [facility] CenterComment on above:Performed By: #### CBCA ####[facility] ([address], [id number] VIRMONOCYTES RELATIVE PERCENT BY AUTOMATED COUNT10.3 %NormalProTexas Children'S Hospital The WoodlandsComment on above:Performed By: #### CBCA ####[facility] ([address], [id number] VIRNEUTROPHILS ABSOLUTE COUNT BY AUTOMATED COUNT6.8 10*3/uLHigh1.5-6.6ProTexas Children'S Hospital The WoodlandsComment on above: Performed By: #### CBCA ####[facility] ([facility])[address] [place], [place] [address]E.[place], [id number] VIRNEUTROPHILS RELATIVE PERCENT BY AUTOMATED COUNT68.7 %NormalProTexas Children'S Hospital The WoodlandsComment on above:Performed By: #### CBCA ####[facility] ([address], [id number] VIRPlatelet mean volume (Bld) [Entitic vol]7.4 fLNormal7-12PHolzer HospitalComment on above:Performed By: #### CBCA ####[facility] ([facility])[address] [place] [address] A[place], [id number] VIRPlatelets (Bld) [#/Vol]452 10*3/gSHmns415-377AbqQzjbhmTexas Children'S Hospital The WoodlandsComment on above:Performed By: #### CBCA ####[facility] ([address] [place] [address] VIRRBC COUNT3.43 X10E12/LLow3.8-5.2PHolzer HospitalComment on above:Performed By: #### CBCA ####[facility] ([address], [place] VIRWBC (Bld) [#/Vol]9.9 10*3/uLNormal4-11 [facility] CenterComment on above:Performed By: #### CBCA ####[facility] ([address] [id number] VIR COMPREHENSIVE METABOLIC PANELon 88-11-3583Puhoprm [Mass/Vol]2.9 g/dLLow3.2-5.3 [facility] CenterComment on above:Performed By: #### CMP ####[facility] ([address] [place] [address] VIRALP [Catalytic activity/Vol]67 U/FBkvvzr94-973VwdDjtjlfTexas Children'S Hospital The WoodlandsComment on above:Performed By: #### CMP ####[facility] ([place])[address] [place] [address] VIRALT [Catalytic activity/Vol]16 U/LNormal<=31 [facility] Medical CenterComment on above:Performed By: #### CMP ####[facility] ([place] [address] [place] [address] VIRAnion gap [Moles/Vol]11 mmol/LNormal5-15ProTexas Children'S Hospital The WoodlandsComment on above: Performed By: #### CMP ####[facility] ([place] [address] [address] VIRAST [Catalytic activity/Vol]21 U/LNormal<=41 [facility] CenterComment on above:Performed By: #### CMP ####[facility] ([place] [address] [address] VIRBilirubin [Mass/Vol]0.6 mg/dLNormal0.3-1.2ProMedSt. Louis Children's Hospital HospitalComment on above: Performed By: #### CMP ####[facility] ([place] [address] [place] [address] VIRCalcium [Mass/Vol]8.4 mg/dLLow8.5-10.5ProMedModoc Medical CenterComment on above:Performed By: #### CMP ####[facility] ([place] [address] [place] [address] VIRChloride [Moles/Vol]99 mmol/ITybump82-140SntRycubtTexas Children'S Hospital The WoodlandsComment on above: Performed By: #### CMP ####[facility] ([place] [address] [place] [address] VIRCO2 [Moles/Vol]30 mmol/FGadard07-98YopCaopolHolzer HospitalComment on above:Performed By: #### CMP ####[facility] ([place] [address] [place] [address] VIRCreatinine [Mass/Vol]0.52 mg/dLNormal0.40-1.00ProTexas Children'S Hospital The WoodlandsComment on above: Result Comment: METHOD TRACEABLE TO IDMS STANDARDPerformed By: #### CMP ####[facility] ([address] [address] VIREGFR (CKD-EPI) NON-RACE DEPENDENT>^90Normal>=60ProTexas Children'S Hospital The WoodlandsComment on above:Result Comment: eGFR not reported due to non-numeric value for Creatinine.Reported eGFR is based ontheCKD-EPI 2020 equation that doesnot use a race coefficient.Performed By: #### CMP ####[facility] ([address] [address] VIRGlucose [Mass/Vol]98 mg/jJWffxwv89-43DswPqbgkeTexas Children'S Hospital The WoodlandsComment on above: Performed By: #### CMP ####[facility] ([address] [address] VIRPotassium [Moles/Vol]3.3 mmol/LLow3.5-5.0ProTexas Children'S Hospital The WoodlandsComment on above:Performed By: #### CMP ####[address] [address] VIRProtein [Mass/Vol]5.7 g/dLLow6.0-8.0ProTexas Children'S Hospital The WoodlandsComment on above:Performed By: #### CMP ####[facility] ([address] [address] VIRSodium [Moles/Vol]140 mmol/WWxsmzc144-449YujYgedon [place]rem[place] HospitalComment on above:Performed By: #### CMP ####[facility] ([address] [address] VIRUrea nitrogen [Mass/Vol]7 mg/dLNormal5-27ProTexas Children'S Hospital The WoodlandsComment on above:Performed By: #### CMP ####[facility] ([address] [address] VIRMAGNESIUMon 22-81-8593Qmiwzycdh [Mass/Vol]2.0 mg/dL Normal1.8-2.6ProTexas Children'S Hospital The WoodlandsComment on above:Performed By: #### MG ####[facility] ([address] [address] VIRURINALYSISon 40-50-7490Ruppausmt Ql (U)NegativeNormalNegativeUpper Valley Medical CenterComment on above:Performed By: #### UA ####[facility] ([address] [address] VIRBLOOD/HGBNegative NormalNegativeUpper Valley Medical CenterComment on above:Performed By: #### UA ####[facility] ([address] [address] VIRColor (U)YellowNormalYellowProTexas Children'S Hospital The WoodlandsComment on above: Performed By: #### UA ####[facility] ([address] [address] VIRGlucose Ql (U)NegativeNormalNegative, 250 mg/dL [facility] Medical CenterComment on above:Performed By: #### UA ####[facility] ([address] [address] VIRKetones Ql (U)NegativeNormalNegativeUpper Valley Medical CenterComment on above:Performed By: #### UA ####[facility] ([address] [address] VIRLeukocyte esterase Test strip Ql (U)NegativeNormal NegativeUpper Valley Medical CenterComment on above:Performed By: #### UA ####[facility] ([address] [place] [address] VIRNitrite Ql (U)NegativeNormalNegativeUpper Valley Medical CenterComment on above:Performed By: #### UA ####[facility] ([address] [address] VIRPH,URINE7.2Eoshfl0.0-8.5ProMedica Scripps Memorial HospitalComment on above:Performed By: #### UA ####[facility] ([address] [address] VIRProtein Ql (U)Negative NormalNegativeUpper Valley Medical CenterComment on above:Performed By: #### UA ####[facility] ([address] [address] VIRSpecific gravity (U) [Rel density]1.965Xxhudb6.003-1.035ProTexas Children'S Hospital The WoodlandsComment on above:Performed By: #### UA ####[facility] ([address] [address] VIRTURBIDITYClearNormalClear [facility] CenterComment on above:Performed By: #### UA ####[facility] ([address] [address] VIR UROBILINOGEN0.2 eu/dLNormal0.2 eu/dL, 1.0 eu/dLUpper Valley Medical CenterComment on above:Performed By: #### UA ####[facility] ([address] [address] VIRURINE CULTUREon 82-13-1214Aqludbys identified Cx Nom (U)CULTURE RESULTS <10,000 ORGANISMS/mL NORMAL URO GENITAL FLORANoalUpper Valley Medical Center Comment on above:Performed By: #### UC ####[facility] ([facility])[address], [place] [address] VIRBEDSIDE GLUCOSEon 12-16-2024 Glucose [Mass/Vol]152 mg/iYVvlu01-66AouMgwccpTexas Children'S Hospital The WoodlandsComment on above: Performed By: #### BEDG ####[facility] ([address], [id number] VIRGlucose [Mass/Vol]167 mg/jAJyik77-66NfxShbvmpUpper Valley Medical CenterComment on above:Performed By: #### BEDG ####[facility] ([address], [id number] VIRGlucose [Mass/Vol] 114 mg/mZEfyn74-30LvrHymutxUpper Valley Medical CenterComment on above:Performed By: #### BEDG ####[facility] ([address] [place] [address] VIRGlucose [Mass/Vol]134 mg/qFNmvr97-71VzxCxbpleUpper Valley Medical CenterComment on above:Performed By: #### BEDG ####[facility] ([address], [id number] VIRCBC WITH AUTO DIFFERENTIALon 76-65-2463EPBRRQVOQ ABSOLUTE COUNT (10*3/UL) BY AUTOMATED COUNT0.1 10*3/uLNormal 0.0-0.2ProMedica Scripps Memorial HospitalComment on above:Performed By: #### CBCA ####[facility] ([address], [id number] VIRBASOPHILS RELATIVE PERCENT BY AUTOMATED COUNT1.5 %NormalProTexas Children'S Hospital The WoodlandsComment on above:Performed By: #### CBCA ####[facility] ([address], [id number] VIRCELLAVISION DIFFERENTIAL TYPEAUTOMATED DIFFERENTIALNormalProTexas Children'S Hospital The WoodlandsComment on above: Performed By: #### CBCA ####[facility] ([address], [id number] VIREosinophils (Bld) [#/Vol]0.5 10*3/uLHigh0.0-0.4 [facility] CenterComment on above:Performed By: #### CBCA ####[facility] ([address], [id number] VIR EOSINOPHILS RELATIVE PERCENT BY AUTOMATED COUNT5.9 %NormalUpper Valley Medical CenterComment on above:Performed By: #### CBCA ####[facility] ([address], [id number] VIRErythrocyte distribution width (RBC) [Ratio]18.8 %High11.5-15[facility] Medical CenterComment on above: Performed By: #### CBCA ####[facility] ([address], [id number] VIRHematocrit (Bld) [Volume fraction]23.7 %Opx54-15 [facility] Medical CenterComment on above:Performed By: #### CBCA ####[facility] ([address], [id number] VIRHemoglobin (Bld) [Mass/Vol]7.6 g/dLLow11.7-15.5PHolzer HospitalComment on above: Performed By: #### CBCA ####[facility] ([address], [id number] VIRLYMPHOCYTES ABSOLUTE COUNT (10*3/UL) BY AUTOMATED COUNT1.1 10*3/uLNormal1.0-3.5PHolzer HospitalComment on above: Performed By: #### CBCA ####[facility] ([address], [id number] VIRLYMPHOCYTES RELATIVE PERCENT BY AUTOMATED COUNT11.8 %NormalUpper Valley Medical CenterComment on above:Performed By: #### CBCA ####[facility])[address], [id number] VIRMCH (RBC) [Entitic mass]25.1 ueXhl81-12FymVhntnjUpper Valley Medical CenterComment on above:Performed By: #### CBCA ####[facility] ([address], [id number] VIRMCHC (RBC) [Mass/Vol]32.2 g/tGAwqvgi70-72 [facility] Medical CenterComment on above:Performed By: #### CBCA ####[facility] ([address], [id number] VIRMCV (RBC) [Entitic vol]78 [id number] Children'S Hospital The WoodlandsComment on above:Performed By: #### CBCA ####[facility] ([address], [id number] VIRMONOCYTES ABSOLUTE COUNT (10*3/UL) BY AUTOMATED COUNT0.9 10*3/uLNormal0.0-0.9[facility] CenterComment on above:Performed By: #### CBCA ####[facility] ([address], [id number] VIRMONOCYTES RELATIVE PERCENT BY AUTOMATED COUNT9.8 %Normal [facility] CenterComment on above:Performed By: #### CBCA ####[facility] ([address], [id number] VIR NEUTROPHILS ABSOLUTE COUNT BY AUTOMATED COUNT6.4 10*3/uLNormal1.5-6.6[facility] CenterComment on above:Performed By: #### CBCA ####[facility] ([address], [id number] VIRNEUTROPHILS RELATIVE PERCENT BY AUTOMATED COUNT71.0 %NormalProTexas Children'S Hospital The WoodlandsComment on above:Performed By: #### CBCA ####[facility] ([facility])[address], [id number] VIRPlatelet mean volume (Bld) [Entitic vol]7.2 fLNormal7-12PHolzer HospitalComment on above:Performed By: #### CBCA ####[facility] ([place] [address], [id number] VIRPlatelets (Bld) [#/Vol]414 10*3/rJErqarg086-473NxpAsarjm [facility] HospitalComment on above:Performed By: #### CBCA ####[facility] ([place] [address], [id number] VIRRBC COUNT3.03 X10E12/LLow3.8-5.2PHolzer HospitalComment on above:Performed By: #### CBCA ####[facility] ([place] [address] [place] [place] [address] VIRWBC (Bld) [#/Vol]9.0 10*3/uLNormal4-11ProTexas Children'S Hospital The WoodlandsComment on above:Performed By: #### CBCA ####[facility] ([facility])[address] [place], [place] [address], [id number] VIRCOMPREHENSIVE METABOLIC PANELon 39-23-1793Yjcdxuh [Mass/Vol]2.8 g/dLLow3.2-5.3PHolzer HospitalComment on above:Performed By: #### CMP ####[facility] ([facility] [place] [address] VIRALP [Catalytic activity/Vol]57 U/LNormal 39-130ProTexas Children'S Hospital The WoodlandsComment on above:Performed By: #### CMP ####[facility] ([place] [address] [place] [address] VIRALT [Catalytic activity/Vol]17 U/LNormal<=31PHolzer Hospital Comment on above:Performed By: #### CMP ####[facility] ([address] [place] [address] VIRAnion gap [Moles/Vol]5 mmol/LNormal 5-15[facility] CenterComment on above:Performed By: #### CMP ####[facility] ([address], [place] [address] VIRAST [Catalytic activity/Vol]24 U/LNormal<=41[facility] Comment on above:Performed By: #### CMP ####[facility] ([address] [place] [address] VIRBilirubin [Mass/Vol]0.5 mg/dLNormal 0.3-1.2PHolzer HospitalComment on above:Performed By: #### CMP ####[facility] ([address] [address] VIRCalcium [Mass/Vol]7.7 mg/dLLow8.5-10.5PHolzer HospitalComment on above:Performed By: #### CMP ####[facility] ([address] [place] [address] VIRChloride [Moles/Vol]105 mmol/XLpvsxi86-713 [facility] CenterComment on above:Performed By: #### CMP ####[facility] ([address] [place] [address] VIRCO2 [Moles/Vol]27 mmol/UGpasuh60-49XovEjtywqHolzer HospitalComment on above: Performed By: #### CMP ####[facility] ([address] [place] [address] VIRCreatinine [Mass/Vol]0.66 mg/dLNormal0.40-1.00 [facility] CenterComment on above:Result Comment: METHOD TRACEABLE TO IDMS STANDARDPerformed By: #### CMP ####[facility] ([address] [place] [address] VIREGFR (CKD-EPI) NON-RACE DEPENDENT >^90Normal>=60ProTexas Children'S Hospital The WoodlandsComment on above:Result Comment: eGFR not reported due to non-numeric value for Creatinine.Reported eGFR is based on theCKD-EPI 2020 equation that doesnot use a race coefficient.Performed By: #### CMP ####[facility] ([address] [place] [address] VIRGlucose [Mass/Vol]97 mg/hONgmgqa03-39NmlOkamxxTexas Children'S Hospital The WoodlandsComment on above:Performed By: #### CMP ####[facility] ([address] [place] [address] VIRPotassium [Moles/Vol]3.5 mmol/LNormal 3.5-5.0ProTexas Children'S Hospital The WoodlandsComment on above:Performed By: #### CMP ####[facility] ([address], [place] [address] VIRProtein [Mass/Vol]5.3 g/dLLow6.0-8.0[facility] Medical CenterComment on above:Performed By: #### CMP ####[facility] ([address] [place] [address] VIRSodium [Moles/Vol]137 mmol/TRzdroh942-849 ProMAnderson SanatoriumComment on above:Performed By: #### CMP ####[facility] ([address] [place] [address] VIRUrea nitrogen [Mass/Vol]8 mg/dLNormal5-27ProTexas Children'S Hospital The WoodlandsComment on above: Performed By: #### CMP ####[facility] ([address] [place] [address] VIRHEMOGLOBIN AND HEMATOCRIT, BLOODon 12-16-2024 Hematocrit (Bld) [Volume fraction]24.3 %Tja43-50LchHcchvqUpper Valley Medical Center Comment on above:Performed By: #### HH ####[facility] ([address] [place] [address] VIRHemoglobin (Bld) [Mass/Vol]7.9 g/dL Low11.7-15.5ProMedModoc Medical CenterComment on above:Performed By: #### HH ####[facility] ([facility])[address] [place] [address].[place], [place] [address] VIRIONIZED CALCIUMon 61-79-7686GBCRRCU CALCIUM - ICAN4.7 mg/dLNormal4.5-5.3 [facility] CenterComment on above:Performed By: #### ICA ####[facility] ([address] [place] [address] VIRMAGNESIUM on 36-85-8295Nccqmvodc [Mass/Vol]2.1 mg/dLNormal1.8-2.6[facility] Medical CenterComment on above:Performed By: #### MG ####[facility] ([address] [place] [address] VIRPOTASSIUMon 12-16-2024 Potassium [Moles/Vol]3.8 mmol/LNormal3.5-5.0[facility] Medical CenterComment on above:Performed By: #### K ####[facility] ([address] [place] [address] VIRBEDSIDE GLUCOSEon 69-16-7852Wssmhbt [Mass/Vol]185 mg/iXNqsl23-05RnmFejgvfUpper Valley Medical CenterComment on above:Performed By: #### BEDG ####[facility] ([address], [place] VIRGlucose [Mass/Vol]127 mg/gFHyoo46-68QtlMqmosvUpper Valley Medical CenterComment on above:Performed By: #### BEDG ####[facility] ([address], [id number] VIRGlucose [Mass/Vol]173 mg/dL Makg41-25WccSezkg[address] [place], [place] [address]Comment on above:Performed By: #### BEDG ####[facility] ([address], [id number] VIRGlucose [Mass/Vol]129 mg/qEAduv65-09EqaCpdmaf80 Martinez StreetComment on above:Performed By: #### BEDG ####[facility] ([address], [id number] VIRCBC WITH AUTO DIFFERENTIALon 12-15-2024 BASOPHILS ABSOLUTE COUNT (10*3/UL) BY AUTOMATED COUNT0.1 10*3/uLNormal0.0-0.2 [facility] CenterComaspirus ontonagon hospital on above:Performed By: #### CBCA ####[facility] ([address], [id number] VIRBASOPHILS RELATIVE PERCENT BY AUTOMATED COUNT1.0 %ProMedica Flower HospitalComaspirus ontonagon hospital on above:Performed By: #### CBCA ####[facility] ([address], [id number] VIRCELLAVISION DIFFERENTIAL TYPE AUTOMATED DIFFERENTIALNormalUpper Valley Medical CenterComaspirus ontonagon hospital on above:Performed By: #### CBCA ####[facility] ([address], [id number] VIREosinophils (Bld) [#/Vol]0.4 10*3/uLNormal0.0-0.4 [facility] Medical CenterComaspirus ontonagon hospital on above:Performed By: #### CBCA ####[facility] ([address], [id number] VIR EOSINOPHILS RELATIVE PERCENT BY AUTOMATED COUNT4.6 %NormalUpper Valley Medical CenterComment on above:Performed By: #### CBCA ####[facility] ([address], [id number] VIRErythrocyte distribution width (RBC) [Ratio]18.5 %High11.5-15ProTexas Children'S Hospital The WoodlandsComment on above: Performed By: #### CBCA ####[facility] ([address], [id number] VIRHematocrit (Bld) [Volume fraction]25.0 %Gft72-04 [facility] Medical CenterComment on above:Performed By: #### CBCA ####[facility] ([address], [id number] VIRHemoglobin (Bld) [Mass/Vol]7.8 g/dLLow11.7-15.5PHolzer HospitalComment on above: Performed By: #### CBCA ####[facility] ([address], [id number] VIRLYMPHOCYTES ABSOLUTE COUNT (10*3/UL) BY AUTOMATED COUNT0.9 10*3/uLLow1.0-3.5PHolzer HospitalComment on above:Performed By: #### CBCA ####[facility] ([address], [id number] VIRLYMPHOCYTES RELATIVE PERCENT BY AUTOMATED COUNT10.3 % NormalUpper Valley Medical CenterComment on above:Performed By: #### CBCA ####[facility] ([address], [id number] VIRMCH (RBC) [Entitic mass]25.0 luLpp44-63BoiLqrpneTexas Children'S Hospital The WoodlandsComment on above:Performed By: #### CBCA ####[facility] ([address], [id number] VIRMCHC (RBC) [Mass/Vol]31.3 g/zMSuw06-00 [facility] CenterComment on above:Performed By: #### CBCA ####[facility] ([address], [id number] VIRMCV (RBC) [Entitic vol]80 dRAooahh08-960EnsFcdnzn [facility] HospitalComment on above: Performed By: #### CBCA ####[facility] ([address], [id number] VIRMONOCYTES ABSOLUTE COUNT (10*3/UL) BY AUTOMATED COUNT1.0 10*3/uLHigh0.0-0.9[facility] Medical CenterComment on above:Performed By: #### CBCA ####[facility] ([address], [id number] VIRMONOCYTES RELATIVE PERCENT BY AUTOMATED COUNT11.6 % NormalUpper Valley Medical CenterComment on above:Performed By: #### CBCA ####[facility] ([address], [id number] VIRNEUTROPHILS ABSOLUTE COUNT BY AUTOMATED COUNT6.4 10*3/uLNormal1.5-6.6 [facility] CenterComaspirus ontonagon hospital on above:Performed By: #### CBCA ####[facility] ([address], [id number] VIR NEUTROPHILS RELATIVE PERCENT BY AUTOMATED COUNT72.5 %NormalUpper Valley Medical CenterComment on above:Performed By: #### CBCA ####[facility] ([address], [id number] VIRPlatelet mean volume (Bld) [Entitic vol]6.9 fLLow7-12ProMedica Scripps Memorial HospitalComment on above:Performed By: #### CBCA ####[facility] ([address], [id number] VIRPlatelets (Bld) [#/Vol]398 10*3/zPIrkcym142-817UkpHmchew [facility] HospitalComment on above:Performed By: #### CBCA ####[facility] ([facility])[address] [place], [place] [address], [place] VIRRBC COUNT3.14 X10E12/LLow3.8-5.2PHolzer HospitalComment on above:Performed By: #### CBCA ####[facility] ([facility])[address] [place], [place] [address] [place] [address] VIRWBC (Bld) [#/Vol]8.8 10*3/uLNormal4-11ProTexas Children'S Hospital The WoodlandsComment on above:Performed By: #### CBCA ####[facility] ([address], [place] VIRCOMPREHENSIVE METABOLIC PANELon 38-52-0231Ceamdjx [Mass/Vol]2.6 g/dLLow3.2-5.3PHolzer HospitalComment on above:Performed By: #### CMP ####[facility] ([facility])[address] [place], [place] [address] [place] [address] VIRALP [Catalytic activity/Vol]53 U/LNormal 39-130ProTexas Children'S Hospital The WoodlandsComment on above:Performed By: #### CMP ####[facility] ([facility])[address] [place], [place] [address], [place] [address] VIRALT [Catalytic activity/Vol]16 U/LNormal<=31PH[facility]zer Hospital Comment on above:Performed By: #### CMP ####[facility] ([facility])[address] [place], [place] [address] [place] [address] VIRAnion gap [Moles/Vol]3 mmol/LLow 5-15ProTexas Children'S Hospital The WoodlandsComment on above:Performed By: #### CMP ####[facility] ([address], [place] [address] VIRAST [Catalytic activity/Vol]25 U/LNormal<=41[facility] Comment on above:Performed By: #### CMP ####[facility] ([address] [place] [address] VIRBilirubin [Mass/Vol]0.9 mg/dLNormal 0.3-1.2PHolzer HospitalComment on above:Performed By: #### CMP ####[facility] ([address] [address] VIRCalcium [Mass/Vol]7.8 mg/dLLow8.5-10.5PHolzer HospitalComment on above:Performed By: #### CMP ####[address] [address] VIRChloride [Moles/Vol]112 mmol/ZXsfs90-410 [facility] CenterComment on above:Performed By: #### CMP ####[facility] ([address] [address] VIRCO2 [Moles/Vol]23 mmol/JNwjkin58-71OjlJjmputHolzer HospitalComment on above: Performed By: #### CMP ####[facility] ([address] [place] [address] VIRCreatinine [Mass/Vol]0.75 mg/dLNormal0.40-1.00 [facility] CenterComment on above:Result Comment: METHOD TRACEABLE TO IDMS STANDARDPerformed By: #### CMP ####[facility] ([address] [address] VIRGFR/1.73 sq M.predicted among non- blacks MDRD (S/P/Bld) [Vol rate/Area]88 mL/min/{1.73_m2}Normal>=60ProTexas Children'S Hospital The WoodlandsComment on above:Result Comment: Reported eGFR is based on theCKD-EPI 2020 equation that doesnot use a race coefficient.Performed By: #### CMP ####[facility] ([address] [place] [address] VIRGlucose [Mass/Vol]124 mg/sFHzwd31-81TfvEmesdgTexas Children'S Hospital The WoodlandsComment on above:Performed By: #### CMP ####[facility] ([address] [place] [address] VIRPotassium [Moles/Vol]4.5 mmol/LNormal 3.5-5.0ProTexas Children'S Hospital The WoodlandsComment on above:Performed By: #### CMP ####[address], [place] [address] VIRProtein [Mass/Vol]5.0 g/dLLow6.0-8.0ProTexas Children'S Hospital The WoodlandsComment on above:Performed By: #### CMP ####[facility] ([address] [place] [address] VIRSodium [Moles/Vol]138 mmol/JEzwiui738-540 [facility] CenterComment on above:Performed By: #### CMP ####[facility] ([address] [place] [address] VIRUrea nitrogen [Mass/Vol]11 mg/dLNormal5-27ProTexas Children'S Hospital The WoodlandsComment on above: Performed By: #### CMP ####[facility] ([address] [place] [address] VIRHEMOGLOBIN AND HEMATOCRIT, BLOODon 12-15-2024 Hematocrit (Bld) [Volume fraction]25.0 %Tcj09-61DswWdnpboUpper Valley Medical Center Comment on above:Performed By: #### HH ####[facility] ([address] [place] [address] VIRHemoglobin (Bld) [Mass/Vol]7.9 g/dL Low11.7-15.5ProMedica Scripps Memorial HospitalComment on above:Performed By: #### HH ####[facility] ([address] [address] VIRIONIZED CALCIUMon 46-00-0209FAHSGQS CALCIUM - ICAN4.8 mg/dLNormal4.5-5.3 [facility] CenterComment on above:Performed By: #### ICA ####[facility] ([address] [address] VIRMAGNESIUM on 27-67-8916Gteqqnten [Mass/Vol]2.4 mg/dLNormal1.8-2.6[facility] Medical CenterComment on above:Performed By: #### MG ####[facility] ([address] [address] VIRMagnesium [Mass/Vol]1.9 mg/dLNormal1.8-2.6ProTexas Children'S Hospital The WoodlandsComment on above:Performed By: #### MG ####[facility] ([address] [address] VIRBEDSIDE GLUCOSEon 93-68-1424Ojlkmwh [Mass/Vol]146 mg/eHGxvq06-60 [facility] CenterComment on above:Performed By: #### BEDG ####[facility] ([address] VIRGlucose [Mass/Vol]153 mg/qQSsxs84-63PptInmliaUpper Valley Medical CenterComment on above:Performed By: #### BEDG ####[facility] ([address] VIRGlucose [Mass/Vol]146 mg/fTUxmp26-55IetGxjvlzTexas Children'S Hospital The WoodlandsComment on above:Performed By: #### BEDG ####[facility] ([address], [id number] VIRCBC WITH AUTO DIFFERENTIAL on 08-56-1734YMWQCHEAJ ABSOLUTE COUNT (10*3/UL) BY AUTOMATED COUNT0.1 10*3/uL Normal0.0-0.2ProMedica Scripps Memorial HospitalComment on above:Performed By: #### CBCA ####[facility] ([address], [id number] VIRBASOPHILS RELATIVE PERCENT BY AUTOMATED COUNT0.9 %NormalUpper Valley Medical CenterComment on above:Performed By: #### CBCA ####[address], [id number] VIRCELLAVISION DIFFERENTIAL TYPEAUTOMATED DIFFERENTIALNormalUpper Valley Medical CenterComment on above: Performed By: #### CBCA ####[facility] ([address], [id number] VIREosinophils (Bld) [#/Vol]0.2 10*3/uLNormal0.0-0.4 [facility] CenterComment on above:Performed By: #### CBCA ####[facility] ([address], [id number] VIR EOSINOPHILS RELATIVE PERCENT BY AUTOMATED COUNT3.2 %NormalUpper Valley Medical CenterComment on above:Performed By: #### CBCA ####[facility] ([address], [id number] VIRErythrocyte distribution width (RBC) [Ratio]19.8 %High11.5-15[facility] Medical CenterComment on above: Performed By: #### CBCA ####[facility] ([address], [id number] VIRHematocrit (Bld) [Volume fraction]23.1 %Ebm02-37 [facility] CenterComment on above:Performed By: #### CBCA ####[facility] ([address], [id number] VIRHemoglobin (Bld) [Mass/Vol]7.4 g/dLLow11.7-15.5PHolzer HospitalComment on above: Performed By: #### CBCA ####[facility] ([address], [id number] VIRLYMPHOCYTES ABSOLUTE COUNT (10*3/UL) BY AUTOMATED COUNT1.0 10*3/uLNormal1.0-3.5PHolzer HospitalComaspirus ontonagon hospital on above: Performed By: #### CBCA ####[facility] ([address], [id number] VIRLYMPHOCYTES RELATIVE PERCENT BY AUTOMATED COUNT12.8 %NormalProTexas Children'S Hospital The WoodlandsComment on above:Performed By: #### CBCA ####[facility] ([address], [id number] VIRMCH (RBC) [Entitic mass]24.8 kpGpq10-30IwxTghegaUpper Valley Medical CenterComment on above:Performed By: #### CBCA ####[facility] ([address], [id number] VIRMCHC (RBC) [Mass/Vol]32.2 g/rVKcbtqz90-25 [facility] CenterComaspirus ontonagon hospital on above:Performed By: #### CBCA ####[facility] ([address], [id number] VIRMCV (RBC) [Entitic vol]77 dQFdl29-624WojOezvwvUpper Valley Medical CenterComment on above:Performed By: #### CBCA ####[facility] ([address] [id number] VIRMONOCYTES ABSOLUTE COUNT (10*3/UL) BY AUTOMATED COUNT1.0 10*3/uLHigh0.0-0.9[facility] Medical CenterComment on above:Performed By: #### CBCA ####[facility] ([facility])[address] [place] [address] [place] [address] VIRMONOCYTES RELATIVE PERCENT BY AUTOMATED COUNT12.8 %NormalUpper Valley Medical CenterComment on above:Performed By: #### CBCA ####[facility] ([facility])[address] [place] [address] [address], [id number] VIRNEUTROPHILS ABSOLUTE COUNT BY AUTOMATED COUNT5.3 10*3/uLNormal1.5-6.6[facility] Medical CenterComment on above:Performed By: #### CBCA ####[facility] ([address], [id number] VIRNEUTROPHILS RELATIVE PERCENT BY AUTOMATED COUNT70.3 %NormalUpper Valley Medical CenterComment on above:Performed By: #### CBCA ####[facility] ([address], [id number] VIRPlatelet mean volume (Bld) [Entitic vol]6.8 fLLow7-12[address] [facility] Hospitalica Scripps Memorial HospitalComment on above:Performed By: #### CBCA ####[facility] ([address], [id number] VIRPlatelets (Bld) [#/Vol]446 10*3/eYXxikqk820-393QsoUwifoe [facility] Comment on above:Performed By: #### CBCA ####[facility] ([address], [id number] VIRRBC COUNT3.00 X10E12/LLow3.8-5.2 [facility] CenterComment on above:Performed By: #### CBCA ####[facility] ([address], [id number] VIRWBC (Bld) [#/Vol]7.5 10*3/uLNormal4-11ProTexas Children'S Hospital The WoodlandsComment on above: Performed By: #### CBCA ####[facility] ([address], [id number] VIRCOMPREHENSIVE METABOLIC PANELon 62-36-9419Ogtwsvx [Mass/Vol]2.9 g/dLLow3.2-5.3PKit [facility] HospitalComment on above:Performed By: #### CMP ####[facility] ([place] [address] [place] [address] VIRALP [Catalytic activity/Vol]58 U/TKkdyea77-002AajAnnpulTexas Children'S Hospital The WoodlandsComment on above:Performed By: #### CMP ####[facility] ([place] [address] [place] [address] VIRALT [Catalytic activity/Vol]12 U/LNormal<=31PHolzer HospitalComment on above: Performed By: #### CMP ####[facility] ([address] [place] [address] VIRAnion gap [Moles/Vol]11 mmol/LNormal5-15ProTexas Children'S Hospital The WoodlandsComment on above:Performed By: #### CMP ####[facility] ([place] [address] [place] [address] VIRAST [Catalytic activity/Vol]18 U/LNormal<=41ProTexas Children'S Hospital The WoodlandsComment on above: Performed By: #### CMP ####[facility] ([place] [address] [place] [address] VIRBilirubin [Mass/Vol]0.9 mg/dLNormal0.3-1.2 [facility] CenterComment on above:Performed By: #### CMP ####[facility] ([place] [address] [place] [address] VIRCalcium [Mass/Vol]8.2 mg/dLLow8.5-10.5PHolzer HospitalComment on above: Performed By: #### CMP ####[facility] ([facility])[address] [place], [place] [address] [address] VIRChloride [Moles/Vol]101 mmol/RTsfeow47-384 ProMAnderson SanatoriumComment on above:Performed By: #### CMP ####[facility] ([address] [place] [address] VIRCO2 [Moles/Vol]24 mmol/OMpepkl80-51GbtMgqkexHolzer HospitalComment on above: Performed By: #### CMP ####[facility] ([address] [place] [address] VIRCreatinine [Mass/Vol]0.94 mg/dLNormal0.40-1.00 [facility] CenterComment on above:Result Comment: METHOD TRACEABLE TO IDMS STANDARDPerformed By: #### CMP ####[facility] ([address] [address] VIRGFR/1.73 sq M.predicted among non- blacks MDRD (S/P/Bld) [Vol rate/Area]67 mL/min/{1.73_m2}Normal>=60ProTexas Children'S Hospital The WoodlandsComment on above:Result Comment: eGFR not reported due to non- numeric value for Creatinine.Reported eGFR is based ontheCKD-EPI 2021 equation that doesnot use a race coefficient.Performed By: #### CMP ####[facility] ([address] [place] [address] VIRGlucose [Mass/Vol]126 mg/kCCtqr00-76MxhLtqefiTexas Children'S Hospital The WoodlandsComment on above:Performed By: #### CMP ####[facility] ([address] [place] [address] VIRPotassium [Moles/Vol]4.5 mmol/LNormal3.5-5.0ProTexas Children'S Hospital The WoodlandsComment on above:Performed By: #### CMP ####[facility] ([address] [place] [address] VIRProtein [Mass/Vol]5.8 g/dLLow6.0-8.0ProTexas Children'S Hospital The WoodlandsComment on above:Performed By: #### CMP ####[facility] ([address] [place] [address] VIRSodium [Moles/Vol]136 mmol/EXrialw208-904JdwEyoqzv Fremont HospitalComment on above:Performed By: #### CMP ####[facility] ([address] [place] [address] VIRUrea nitrogen [Mass/Vol]14 mg/dLNormal5-27ProTexas Children'S Hospital The WoodlandsComment on above:Performed By: #### CMP ####[facility] ([address] [place] [address] VIRHEMOGLOBIN AND HEMATOCRIT, BLOODon 35-70-9703Hkwvilujyr (Bld) [Volume fraction]20.1 %Tpf43-86XefSadtopUpper Valley Medical CenterComment on above:Performed By: #### HH ####[facility] ([address] [place] [address] VIRHemoglobin (Bld) [Mass/Vol]6.3 g/dL Critically low11.7-15.5Pro[facility]ripp[facility] Memorial HospitalComment on above:Performed By: #### HH ####[facility] ([address] [place] [address] VIRHematocrit (Bld) [Volume fraction]21.3 %Dfr00-73XqvChotow Fremont HospitalComment on above:Performed By: #### HH ####[facility] ([address] [place] [address] VIRHemoglobin (Bld) [Mass/Vol]6.8 g/dLCritically low11.7-15.5PHolzer HospitalComment on above:Performed By: #### HH ####[facility] ([address] [place] [address] VIRMAGNESIUMon 65-82-4510Ucxniokka [Mass/Vol] 2.0 mg/dLNormal1.8-2.6ProTexas [facility] Hospital The WoodlandsComment on above:Performed By: #### MG ####[facility] ([address] [address] VIRPOTASSIUMon 07-41-0414Xumjkxmys [Moles/Vol]3.5 mmol/LNormal3.5-5.0 [facility] CenterComment on above:Performed By: #### K ####[facility] ([address] [address] VIRTYPE AND SCREENon 01-41-0242EPE_NCCBKRJslllpRrjZcvxpw [place] HospitalComment on above: Performed By: #### TSC ####[facility] ([address] [address] VIRRH_INTEPPositiveNormalProTexas [facility] [place] Comment on above:Performed By: #### TSC ####[facility] ([address] [address] VIRBEDSIDE GLUCOSEon 17-09-0217Cmbwjdl [Mass/Vol]118 mg/uIOekg73-12NldPsbnfmTexas Children'S Hospital The WoodlandsComment on above: Performed By: #### BEDG ####[address] VIRCBC WITH AUTO DIFFERENTIALon 26-43-8034YSQWJVJZZ ABSOLUTE COUNT (10*3/UL) BY AUTOMATED COUNT0.1 10*3/uLNormal0.0-0.2PKit [facility] HospitalComment on above:Performed By: #### CBCA ####[facility] ([address], [id number] VIRBASOPHILS RELATIVE PERCENT BY AUTOMATED COUNT0.9 %NormalUpper Valley Medical CenterComment on above:Performed By: #### CBCA ####[facility] ([address], [id number] VIRCELLAVISION DIFFERENTIAL TYPEAUTOMATED DIFFERENTIALNormalProTexas Children'S Hospital The WoodlandsComment on above:Performed By: #### CBCA ####[facility] ([address] [place] [address] VIREosinophils (Bld) [#/Vol]0.1 10*3/uLNormal0.0-0.4[facility] Medical CenterComment on above:Performed By: #### CBCA ####[facility] ([address], [id number] VIREOSINOPHILS RELATIVE PERCENT BY AUTOMATED COUNT0.8 %NormalUpper Valley Medical CenterComment on above: Performed By: #### CBCA ####[facility] ([address], [id number] VIRErythrocyte distribution width (RBC) [Ratio]19.9 % High11.5-15[facility] Medical CenterComment on above:Performed By: #### CBCA ####[facility] ([address], [id number] VIRHematocrit (Bld) [Volume fraction]24.3 %Jck61-51RfjTltwslTexas Children'S Hospital [facility] [place]lands Comment on above:Performed By: #### CBCA ####[facility] ([address], [id number] VIRHemoglobin (Bld) [Mass/Vol]8.0 g/dL Low11.7-15.5ProMedica Yale HospitalComment on above:Performed By: #### CBCA ####[facility] ([facility])[address] [place], [place] [address]E.[place], [id number] VIRLYMPHOCYTES ABSOLUTE COUNT (10*3/UL) BY AUTOMATED COUNT0.8 10*3/uLLow1.0-3.5 [facility] CenterComment on above:Performed By: #### CBCA ####[facility] ([facility])[address] [place], [place] [address]E.[place], [id number] VIR LYMPHOCYTES RELATIVE PERCENT BY AUTOMATED COUNT9.0 %NormalProTexas Children'S Hospital The WoodlandsComment on above:Performed By: #### CBCA ####[facility] ([facility])[address] [place], [place] [address], [id number] VIRMCH (RBC) [Entitic mass] 25.3 aaXuj54-63XdlBlhdxzTexas Children'S Hospital The WoodlandsComment on above:Performed By: #### CBCA ####[facility] ([facility])[address] [place], [place] [address] [address] VIRMCHC (RBC) [Mass/Vol]32.9 g/oPLgnzze25-75JijAcfigfUpper Valley Medical Center Comment on above:Performed By: #### CBCA ####[facility] ([facility])[address] [place], [place] [address]E.[place], [id number] VIRMCV (RBC) [Entitic vol]77 fLLow 80-100ProTexas Children'S Hospital The WoodlandsComment on above:Performed By: #### CBCA ####[facility] ([facility])[address] [place], [place] [address]E.[place], [id number] VIRMONOCYTES ABSOLUTE COUNT (10*3/UL) BY AUTOMATED COUNT0.9 10*3/uLNormal0.0-0.9 [facility] CenterComment on above:Performed By: #### CBCA ####[facility] ([facility])[address] [place] [address] AVE.[place], [id number] VIRMONOCYTES RELATIVE PERCENT BY AUTOMATED COUNT9.8 %NormalProTexas Children'S Hospital The WoodlandsComment on above:Performed By: #### CBCA ####[facility] ([facility])[address] [place] [address] [place]VE.[place], [id number] VIRNEUTROPHILS ABSOLUTE COUNT BY AUTOMATED COUNT7.3 10*3/uLHigh1.5-6.6[facility] Medical CenterComment on above: Performed By: #### CBCA ####[facility] ([facility])[address] [place] [address] [place], [id number] VIRNEUTROPHILS RELATIVE PERCENT BY AUTOMATED COUNT79.5 %NormalUpper Valley Medical CenterComment on above:Performed By: #### CBCA ####[facility] ([address], [id number] VIRPlatelet mean volume (Bld) [Entitic vol]7.0 fLNormal7-12PHolzer HospitalComment on above:Performed By: #### CBCA ####[facility] ([address], [id number] VIRPlatelets (Bld) [#/Vol]476 10*3/dIIhlp668-843JvlLjqcduTexas Children'S Hospital The WoodlandsComment on above:Performed By: #### CBCA ####[facility] ([address] [place] [address] VIRRBC COUNT3.16 X10E12/LLow3.8-5.2PHolzer HospitalComment on above:Performed By: #### CBCA ####[facility] ([address], [id number] VIRWBC (Bld) [#/Vol]9.2 10*3/uLNormal4-11 [facility] CenterComment on above:Performed By: #### CBCA ####[facility] ([address], [place] VIR COMPREHENSIVE METABOLIC PANELon 76-66-4085Zfxlhdv [Mass/Vol]3.2 g/dLNormal 3.2-5.3PHolzer HospitalComment on above:Performed By: #### CMP ####[facility] ([address], [place] [address] VIRALP [Catalytic activity/Vol]66 U/XCoblfy73-047HgsCigutsUpper Valley Medical Center Comment on above:Performed By: #### CMP ####[facility] ([place] [address] [place] [address] VIRALT [Catalytic activity/Vol]15 U/L Normal<=31PHolzer HospitalComment on above:Performed By: #### CMP ####[facility] ([address] [address] VIRAnion gap [Moles/Vol]15 mmol/LNormal5-15[facility] Comment on above:Performed By: #### CMP ####[facility] ([address] [place] [address] VIRAST [Catalytic activity/Vol]24 U/L Normal<=41ProTexas Children'S Hospital The WoodlandsComment on above:Performed By: #### CMP ####[facility] ([place] [address] [address] VIRBilirubin [Mass/Vol]1.1 mg/dLNormal0.3-1.2PHolzer Hospital Comment on above:Performed By: #### CMP ####[facility] ([place] [address] [place] [address] VIRCalcium [Mass/Vol]8.4 mg/dLLow 8.5-10.5PHolzer HospitalComment on above:Performed By: #### CMP ####[facility] ([place] [address], [place] [address] VIRChloride [Moles/Vol]92 mmol/WNbj27-250WslKzkoviTexas Children'S Hospital The WoodlandsComment on above:Performed By: #### CMP ####[facility] ([address] [place] [address] VIRCO2 [Moles/Vol]25 mmol/NXwvnzd59-84 ProMAnderson SanatoriumComment on above:Performed By: #### CMP ####[facility] ([address] [address] VIR Creatinine [Mass/Vol]0.97 mg/dLNormal0.40-1.00ProTexas Children'S Hospital The WoodlandsComment on above:Result Comment: METHOD TRACEABLE TO IDMS STANDARDPerformed By: #### CMP ####[facility] ([address] [address] VIRGFR/1.73 sq M.predicted among non-blacks MDRD (S/P/Bld) [Vol rate/Area] 65 mL/min/{1.73_m2}Normal>=60ProTexas Children'S Hospital The WoodlandsComment on above:Result Comment: Reported eGFR is based on theCKD-EPI 2020 equation that doesnot use a race coefficient.Performed By: #### CMP ####[facility] ([address] [place] [address] VIRGlucose [Mass/Vol]131 mg/dLHigh 65-99ProTexas Children'S Hospital The WoodlandsComment on above:Performed By: #### CMP ####[facility] ([address] [address] VIRPotassium [Moles/Vol]2.5 mmol/LCritically low3.5-5.0ProTexas Children'S Hospital The WoodlandsComment on above:Performed By: #### CMP ####[facility] ([address] [address] VIRProtein [Mass/Vol]6.3 g/dL Normal6.0-8.0[facility] Medical CenterComment on above:Performed By: #### CMP ####[facility] ([address], [place] [address] VIRSodium [Moles/Vol]132 mmol/AOze010-449IzdFahlwhTexas Children'S Hospital The WoodlandsComment on above:Performed By: #### CMP ####[facility] ([address] [place] [address] VIRUrea nitrogen [Mass/Vol]18 mg/dLNormal5-27 ProMAnderson SanatoriumComment on above:Performed By: #### CMP ####[facility] ([address] [address] VIRCT ABDOMEN AND PELVIS W CONTon 74-14-2645ZS ABDOMEN AND PELVIS W CONTNormal [facility] Medical CenterLIPASEon 97-40-5011Jdyieg [Catalytic activity/Vol]37 U/HEpqoqo03-83WzdLdrqlqTexas Children'S Hospital The WoodlandsComment on above:Performed By: #### LIPA ####[facility] ([address] VIRMAGNESIUMon 50-50-4046Yfqwjlrva [Mass/Vol]2.2 mg/dLNormal1.8-2.6[facility] CenterComment on above:Performed By: #### MG ####[facility] ([address] [address] VIRPOTASSIUMon 85-62-3309Neqrksfxn [Moles/Vol]3.0 mmol/LLow3.5-5.0[facility] Comment on above:Performed By: #### K ####[facility] ([address] [address] VIRTROP I, HIGH SENSITIVITY 1 HOURon 72-12-9013GUDTISPM I, HIGH AMWIDTWVBJU89 ng/LNormal<16[facility] Comment on above:Performed By: #### [email or web address] ####[facility] ([address] [address] VIRTROPONIN I, HIGH SENSITIVITY 0 HOURon 17-30-2222KDHHZPXK I, HIGH ISVYAYNODJG97 ng/LNormal<16 [facility] CenterComment on above:Performed By: #### TNIHS0 ####[facility] ([address] [address] VIRBEDSIDE GLUCOSEon 69-16-6542Erqtvyi [Mass/Vol]123 mg/uGPzni96-73 [facility] CenterComment on above:Performed By: #### BEDG ####[facility] ([address] [id number] VIRCBC WITH AUTO DIFFERENTIALon 81-67-4327XMGWTYHRV ABSOLUTE COUNT (10*3/UL) BY AUTOMATED COUNT0.1 10*3/uLNormal0.0-0.2PHolzer HospitalComment on above: Performed By: #### CBCA ####[facility] ([address] [id number] VIRBASOPHILS RELATIVE PERCENT BY AUTOMATED COUNT0.7 % NormalProTexas Children'S Hospital The WoodlandsComment on above:Performed By: #### CBCA ####[facility] ([address] [id number] VIRCELLAVISION DIFFERENTIAL TYPEAUTOMATED DIFFERENTIALNormalProTexas Children'S Hospital The WoodlandsComment on above:Performed By: #### CBCA ####[facility] ([address] [id number] VIREosinophils (Bld) [#/Vol] 0.2 10*3/uLNormal0.0-0.4[facility] CenterComment on above:Performed By: #### CBCA ####[facility])[address], [id number] VIREOSINOPHILS RELATIVE PERCENT BY AUTOMATED COUNT2.3 % NormalUpper Valley Medical CenterComment on above:Performed By: #### CBCA ####[facility] ([address], [id number] VIRErythrocyte distribution width (RBC) [Ratio]19.9 %High11.5-15ProTexas Children'S Hospital The WoodlandsComment on above:Performed By: #### CBCA ####[facility] ([address], [id number] VIRHematocrit (Bld) [Volume fraction]24.3 %Aqa49-24UjfVndhuvTexas Children'S Hospital The WoodlandsComment on above: Performed By: #### CBCA ####[facility] ([address], [id number] VIRHemoglobin (Bld) [Mass/Vol]7.8 g/dLLow11.7-15.5 [facility] CenterComment on above:Performed By: #### CBCA ####[facility] ([address], [id number] VIR LYMPHOCYTES ABSOLUTE COUNT (10*3/UL) BY AUTOMATED COUNT0.9 10*3/uLLow1.0-3.5 [facility] CenterComment on above:Performed By: #### CBCA ####[facility] ([address], [id number] VIR LYMPHOCYTES RELATIVE PERCENT BY AUTOMATED COUNT8.2 %NormalProTexas Children'S Hospital The WoodlandsComment on above:Performed By: #### CBCA ####[facility] ([address], [id number] VIRMCH (RBC) [Entitic mass] 25.2 xrQas53-08JzpApdrsn [facility]ont HospitalComment on above:Performed By: #### CBCA ####[facility] ([facility])[address] [place], [place] [address] [address] VIRMCHC (RBC) [Mass/Vol]32.0 g/xVOqshjs04-79TyfUkjgwqUpper Valley Medical Center Comment on above:Performed By: #### CBCA ####[facility] ([address], [id number] VIRMCV (RBC) [Entitic vol]79 fLLow 80-100ProTexas Children'S Hospital The WoodlandsComment on above:Performed By: #### CBCA ####[facility] ([address], [id number] VIRMONOCYTES ABSOLUTE COUNT (10*3/UL) BY AUTOMATED COUNT0.8 10*3/uLNormal0.0-0.9 [facility] CenterComment on above:Performed By: #### CBCA ####[facility] ([address], [id number] VIRMONOCYTES RELATIVE PERCENT BY AUTOMATED COUNT7.2 %NormalUpper Valley Medical CenterComment on above:Performed By: #### CBCA ####[facility] ([address], [id number] VIRNEUTROPHILS ABSOLUTE COUNT BY AUTOMATED COUNT8.8 10*3/uLHigh1.5-6.6[facility] CenterComment on above: Performed By: #### CBCA ####[facility] ([address], [id number] VIRNEUTROPHILS RELATIVE PERCENT BY AUTOMATED COUNT81.6 %NormalUpper Valley Medical CenterComment on above:Performed By: #### CBCA ####[facility] ([address], [id number] VIRPlatelet mean volume (Bld) [Entitic vol]7.1 fLNormal7-12Pro[facility]ica [facility]ripp[facility] Memorial HospitalComment on above:Performed By: #### CBCA ####[facility] ([facility] [id number] VIRPlatelets (Bld) [#/Vol]329 10*3/aGJmxmze881-847ZafQvzzal [facility]ont HospitalComment on above:Performed By: #### CBCA ####[facility] ([facility] [address], [id number] VIRRBC COUNT3.08 X10E12/LLow3.8-5.2PHolzer HospitalComment on above:Performed By: #### CBCA ####[facility] ([facility])[address] [place], [place] [address]VE[address], [id number] VIRWBC (Bld) [#/Vol]10.8 10*3/uLNormal4-11ProTexas Children'S Hospital The WoodlandsComment on above:Performed By: #### CBCA ####[facility] ([facility])[address] [place], [place] [address] [place] [address] VIRCOMPREHENSIVE METABOLIC PANELon 60-25-0696Hbdbltz [Mass/Vol]3.0 g/dLLow 3.2-5.3PHolzer HospitalComment on above:Performed By: #### CMP ####[facility] ([facility])[address] [place], [place] [address], [place] [address] VIRALP [Catalytic activity/Vol]68 U/AQvgwve02-153UysNbnnqoTexas Children'S [facility] [place] Comment on above:Performed By: #### CMP ####[facility] ([facility])[address] [place] [address] [place] [address] VIRALT [Catalytic activity/Vol]15 U/L Normal<=31PHolzer HospitalComment on above:Performed By: #### CMP ####[facility] ([facility] [address], [place] [address] VIRAnion gap [Moles/Vol]11 mmol/LNormal5-15ProU[facility] Comment on above:Performed By: #### CMP ####[facility] ([address] [place] [address] VIRAST [Catalytic activity/Vol]17 U/L Normal<=41ProTexas Children'S Hospital The WoodlandsComment on above:Performed By: #### CMP ####[facility] ([address], [place] [address] VIRBilirubin [Mass/Vol]0.9 mg/dLNormal0.3-1.2PH[facility]zer Hospital Comment on above:Performed By: #### CMP ####[facility] ([address] [place] [address] VIRCalcium [Mass/Vol]8.0 mg/dLLow 8.5-10.5PHolzer HospitalComment on above:Performed By: #### CMP ####[facility] ([address], [place] [address] VIRChloride [Moles/Vol]97 mmol/MJhc54-373XtsLhaazyTexas Children'S Hospital The WoodlandsComment on above:Performed By: #### CMP ####[facility] ([address] [place] [address] VIRCO2 [Moles/Vol]26 mmol/ATfnlzj85-17 [facility] CenterComment on above:Performed By: #### CMP ####[facility] ([address] [place] [address] VIR Creatinine [Mass/Vol]0.73 mg/dLNormal0.40-1.00ProTexas Children'S Hospital The WoodlandsComment on above:Result Comment: METHOD TRACEABLE TO IDMS STANDARDPerformed By: #### CMP ####[facility] ([address], [place] [address] VIREGFR (CKD-EPI) NON-RACE DEPENDENT>^90Normal>=60ProTexas Children'S Hospital The WoodlandsComment on above:Result Comment: eGFR not reported due to non-numeric value for Creatinine.Reported eGFR is based ontheCKD-EPI 2020 equation that doesnot use a race coefficient.Performed By: #### CMP ####[facility] ([address] [place] [address] VIRGlucose [Mass/Vol]118 mg/yFLmtq60-39QnmUhpcktTexas Children'S Hospital The WoodlandsComment on above:Performed By: #### CMP ####[facility] ([address] [place] [address] VIRPotassium [Moles/Vol]3.4 mmol/LLow3.5-5.0ProTexas Children'S Hospital The WoodlandsComment on above:Performed By: #### CMP ####[address] [place] [address] VIRProtein [Mass/Vol]6.1 g/dLNormal6.0-8.0ProTexas Children'S Hospital The WoodlandsComment on above: Performed By: #### CMP ####[address] [place] [address] VIRSodium [Moles/Vol]134 mmol/FFxihnl128-972UixCogwfk [facility] HospitalComment on above:Performed By: #### CMP ####[address] [place] [address] VIRUrea nitrogen [Mass/Vol]18 mg/dLNormal5-27ProTexas Children'S Hospital The WoodlandsComment on above:Performed By: #### CMP ####[facility] ([address] [place] [address] VIRMAGNESIUMon 34-42-2949Lwvcaweef [Mass/Vol]2.0 mg/dL Normal1.8-2.6ProTexas Children'S Hospital The WoodlandsComment on above:Performed By: #### MG ####[facility] ([address], [place] [address] VIRBEDSIDE GLUCOSEon 51-58-7726Zmbfpwb [Mass/Vol]134 mg/sSByjc85-58LqvCijnmoUpper Valley Medical CenterComment on above:Performed By: #### BEDG ####[facility] ([address], [id number] VIRGlucose [Mass/Vol] 145 mg/gQVlph70-23UtqGnomkcTexas Children'S Hospital The WoodlandsComment on above:Performed By: #### BEDG ####[facility] ([address] [place] [address] VIRGlucose [Mass/Vol]116 mg/rTFogt53-78LwcOkanrzUpper Valley Medical CenterComment on above:Performed By: #### BEDG ####[facility] ([address], [id number] VIRCBC WITH AUTO DIFFERENTIALon 11-45-0656SFUETSXBP ABSOLUTE COUNT (10*3/UL) BY AUTOMATED COUNT0.1 10*3/uLNormal 0.0-0.2PHolzer HospitalComment on above:Performed By: #### CBCA ####[facility] ([address], [id number] VIRBASOPHILS RELATIVE PERCENT BY AUTOMATED COUNT1.2 %NormalProTexas Children'S Hospital The WoodlandsComment on above:Performed By: #### CBCA ####[facility] ([address], [id number] VIRCELLAVISION DIFFERENTIAL TYPEAUTOMATED DIFFERENTIALNormalUpper Valley Medical CenterComment on above: Performed By: #### CBCA ####[facility] ([address] [id number] VIREosinophils (Bld) [#/Vol]0.2 10*3/uLNormal0.0-0.4 [facility] CenterComment on above:Performed By: #### CBCA ####[facility] ([address], [id number] VIR EOSINOPHILS RELATIVE PERCENT BY AUTOMATED COUNT2.8 %NormalUpper Valley Medical CenterComment on above:Performed By: #### CBCA ####[facility] ([address], [id number] VIRErythrocyte distribution width (RBC) [Ratio]19.8 %High11.5-15ProTexas Children'S Hospital The WoodlandsComment on above: Performed By: #### CBCA ####[facility] ([address], [id number] VIRHematocrit (Bld) [Volume fraction]24.6 %Fun31-56 [facility] CenterComment on above:Performed By: #### CBCA ####[facility] ([address], [id number] VIRHemoglobin (Bld) [Mass/Vol]7.8 g/dLLow11.7-15.5PHolzer HospitalComment on above: Performed By: #### CBCA ####[facility] ([address], [id number] VIRLYMPHOCYTES ABSOLUTE COUNT (10*3/UL) BY AUTOMATED COUNT1.2 10*3/uLNormal1.0-3.5PHolzer HospitalComment on above: Performed By: #### CBCA ####[facility] ([address], [id number] VIRLYMPHOCYTES RELATIVE PERCENT BY AUTOMATED COUNT13.9 %NormalUpper Valley Medical CenterComment on above:Performed By: #### CBCA ####[facility] ([address], [id number] VIRMCH (RBC) [Entitic mass]25.2 sxTui31-99TpvTunhrv Yale HospitalComment on above:Performed By: #### CBCA ####[facility] ([address], [id number] VIRMCHC (RBC) [Mass/Vol]31.7 g/rHLnk44-99 [facility] CenterComment on above:Performed By: #### CBCA ####[facility] ([address], [id number] VIRMCV (RBC) [Entitic vol]79 mCNmm29-014ZbgUbstyrTexas Children'S Hospital The WoodlandsComment on above:Performed By: #### CBCA ####[facility] ([address], [id number] VIRMONOCYTES ABSOLUTE COUNT (10*3/UL) BY AUTOMATED COUNT0.6 10*3/uLNormal0.0-0.9[facility] CenterComment on above:Performed By: #### CBCA ####[facility] ([address], [id number] VIRMONOCYTES RELATIVE PERCENT BY AUTOMATED COUNT7.3 %Normal [facility] CenterComment on above:Performed By: #### CBCA ####[facility] ([address], [id number] VIR NEUTROPHILS ABSOLUTE COUNT BY AUTOMATED COUNT6.2 10*3/uLNormal1.5-6.6[facility] CenterComment on above:Performed By: #### CBCA ####[facility] ([address], [id number] VIRNEUTROPHILS RELATIVE PERCENT BY AUTOMATED COUNT74.8 %NormalUpper Valley Medical CenterComment on above:Performed By: #### CBCA ####[facility] ([address], [id number] VIRPlatelet mean volume (Bld) [Entitic vol]7.8 fLNormal7-12PHolzer HospitalComment on above:Performed By: #### CBCA ####[facility] ([address] [id number] VIRPlatelets (Bld) [#/Vol]273 10*3/gEYtelag516-890MibLpplni Fremont HospitalComment on above:Performed By: #### CBCA ####[facility] ([facility])[address] [place], [place] [address], [id number] VIRRBC COUNT3.10 X10E12/LLow3.8-5.2PHolzer HospitalComment on above:Performed By: #### CBCA ####[facility] ([address] [place] [address] VIRWBC (Bld) [#/Vol]8.3 10*3/uLNormal4-11ProTexas Children'S Hospital The WoodlandsComment on above:Performed By: #### CBCA ####[facility] ([address] [place] [place], [place] VIRCOMPREHENSIVE METABOLIC PANELon [id number] [Mass/Vol]3.0 g/dLLow3.2-5.3PHolzer HospitalComment on above:Performed By: #### CMP ####[facility] ([address] [address] VIRALP [Catalytic activity/Vol]68 U/LNormal 39-130ProTexas Children'S Hospital The WoodlandsComment on above:Performed By: #### CMP ####[facility] ([address], [place] [address] VIRALT [Catalytic activity/Vol]12 U/LNormal<=31PHolzer Hospital Comment on above:Performed By: #### CMP ####[facility] ([facility])[address] [place], [place] [address] [place] [address] VIRAnion gap [Moles/Vol]14 mmol/L Normal5-15ProTexas Children'S Hospital The WoodlandsComment on above:Performed By: #### CMP ####[facility] ([facility])[place] [facility] [address], [place] [address] VIRAST [Catalytic activity/Vol]14 U/LNormal<=41[facility] Comment on above:Performed By: #### CMP ####[facility] ([place] [address] [place] [address] VIRBilirubin [Mass/Vol]0.8 mg/dLNormal 0.3-1.2PHolzer HospitalComment on above:Performed By: #### CMP ####[facility] ([address], [place] [address] VIRCalcium [Mass/Vol]8.2 mg/dLLow8.5-10.5PHolzer HospitalComment on above:Performed By: #### CMP ####[facility] ([address] [place] [address] VIRChloride [Moles/Vol]99 mmol/DQksgqf63-367 [facility] CenterComment on above:Performed By: #### CMP ####[facility] ([address] [place] [address] VIRCO2 [Moles/Vol]26 mmol/WLnlnqs97-34NzcSiufqtHolzer HospitalComment on above: Performed By: #### CMP ####[facility] ([address] [place] [address] VIRCreatinine [Mass/Vol]0.81 mg/dLNormal0.40-1.00 [facility] CenterComment on above:Result Comment: METHOD TRACEABLE TO IDMS STANDARDPerformed By: #### CMP ####[facility] ([place] [address] [place] [address] VIRGFR/1.73 sq M.predicted among non- blacks MDRD (S/P/Bld) [Vol rate/Area]81 mL/min/{1.73_m2}Normal>=60ProTexas Children'S Hospital The WoodlandsComment on above:Result Comment: eGFR not reported due to non- numeric value for Creatinine.Reported eGFR is based ontheCKD-EPI 2020 equation that doesnot use a race coefficient.Performed By: #### CMP ####[facility] ([address] [place] [address] VIRGlucose [Mass/Vol]108 mg/gTGqkq80-39UqrIyprnkTexas Children'S Hospital The WoodlandsComment on above:Performed By: #### CMP ####[facility] ([address] [place] [address] VIRPotassium [Moles/Vol]3.0 mmol/LLow3.5-5.0ProTexas Children'S Hospital The WoodlandsComment on above:Performed By: #### CMP ####[facility] ([address] [place] [address] VIRProtein [Mass/Vol]6.2 g/dLNormal6.0-8.0ProTexas Children'S Hospital The WoodlandsComment on above: Performed By: #### CMP ####[address] [place] [address] VIRSodium [Moles/Vol]139 mmol/CEevznx954-120VpzOyelbm [facility]remont HospitalComment on above:Performed By: #### CMP ####[facility] ([address] [place] [address] VIRUrea nitrogen [Mass/Vol]20 mg/dLNormal5-27ProTexas Children'S Hospital The WoodlandsComment on above:Performed By: #### CMP ####[facility] ([address] [address] VIRMAGNESIUMon 03-70-7440Ynadfmatz [Mass/Vol]2.2 mg/dL Normal1.8-2.6ProTexas Children'S Hospital The WoodlandsComment on above:Performed By: #### MG ####[facility] ([address], [place] [address] VIRPOTASSIUMon 39-01-5416Uxsrqdayx [Moles/Vol]2.6 mmol/LCritically low 3.5-5.0ProTexas Children'S Hospital The WoodlandsComment on above:Performed By: #### K ####[facility] ([address] [address] VIRBEDSIDE GLUCOSEon 25-99-8418Ikwslid [Mass/Vol]119 mg/nNSejo98-80InwBzgumbTexas Children'S Hospital The WoodlandsComment on above:Performed By: #### BEDG ####[facility] ([address] VIRGlucose [Mass/Vol] 91 mg/vWIqowbu11-20QqfWxkccqTexas Children'S Hospital The WoodlandsComment on above:Performed By: #### BEDG ####[facility] ([address] VIRGlucose [Mass/Vol]113 mg/dZXorr41-53GpnQhclxtTexas Children'S Hospital The WoodlandsComment on above:Performed By: #### BEDG ####[facility] ([address] VIRC-REACTIVE PROTEINon 5C REACTIVE PROTEIN7.8 mg/dLHigh<=0.7ProTexas Children'S Hospital The WoodlandsComment on above: Performed By: #### CRP ####[facility] ([address] [address] VIRCBC WITH AUTO DIFFERENTIALon 79-94-6843OSEDABNVW ABSOLUTE COUNT (10*3/UL) BY AUTOMATED COUNT0.1 10*3/uLNormal0.0-0.2ProMedModoc Medical CenterComment on above:Performed By: #### CBCA ####[facility] ([address], [id number] VIRBASOPHILS RELATIVE PERCENT BY AUTOMATED COUNT0.7 %NormalUpper Valley Medical CenterComment on above:Performed By: #### CBCA ####[facility] ([address], [id number] VIRCELLAVISION DIFFERENTIAL TYPEAUTOMATED DIFFERENTIALNormalProTexas Children'S Hospital The WoodlandsComment on above:Performed By: #### CBCA ####[facility] ([address] [place] [address] VIREosinophils (Bld) [#/Vol]0.3 10*3/uLNormal0.0-0.4[facility] CenterComment on above:Performed By: #### CBCA ####[facility] ([address], [id number] VIREOSINOPHILS RELATIVE PERCENT BY AUTOMATED COUNT3.4 %NormalUpper Valley Medical CenterComment on above: Performed By: #### CBCA ####[facility] ([address], [id number] VIRErythrocyte distribution width (RBC) [Ratio]20.2 % High11.5-15[facility] Medical CenterComment on above:Performed By: #### CBCA ####[facility] ([address], [id number] VIRHematocrit (Bld) [Volume fraction]23.4 %Jdv31-00NjyXyqxvgTexas Children'S Hospital The Woodlands Comment on above:Performed By: #### CBCA ####[facility] ([address], [id number] VIRHemoglobin (Bld) [Mass/Vol]7.6 g/dL Low11.7-15.5ProMedica Scripps Memorial HospitalComment on above:Performed By: #### CBCA ####[facility] ([facility])[address] [place], [place] [address], [id number] VIRLYMPHOCYTES ABSOLUTE COUNT (10*3/UL) BY AUTOMATED COUNT1.4 10*3/uLNormal 1.0-3.5PHolzer HospitalComment on above:Performed By: #### CBCA ####[facility] ([facility])[address] [place], [place] [address], [id number] VIRLYMPHOCYTES RELATIVE PERCENT BY AUTOMATED COUNT15.6 %NormalProTexas Children'S Hospital The WoodlandsComment on above:Performed By: #### CBCA ####[facility] ([facility])[address] [place] [address] [address], [id number] VIRMCH (RBC) [Entitic mass] 25.7 axPlw46-64FjgBbiaxbUpper Valley Medical CenterComment on above:Performed By: #### CBCA ####[facility] ([facility])[address] [place] [address] [place] [address] VIRMCHC (RBC) [Mass/Vol]32.4 g/lMNjopeh31-49IfqLwcejnUpper [facility] Medical Center Comment on above:Performed By: #### CBCA ####[facility] ([facility])[address] [place] [address] [address], [id number] VIRMCV (RBC) [Entitic vol]79 fLLow 80-100[facility] CenterComment on above:Performed By: #### CBCA ####[facility] ([facility])[address] [place] [address] [address], [id number] VIRMONOCYTES ABSOLUTE COUNT (10*3/UL) BY AUTOMATED COUNT0.7 10*3/uLNormal0.0-0.9 [facility] CenterComment on above:Performed By: #### CBCA ####[facility] ([facility])[address] [place], [place] [address], [id number] VIRMONOCYTES RELATIVE PERCENT BY AUTOMATED COUNT8.4 %NormalProTexas Children'S Hospital The WoodlandsComment on above:Performed By: #### CBCA ####[facility] ([facility])[address], [id number] VIRNEUTROPHILS ABSOLUTE COUNT BY AUTOMATED COUNT6.2 10*3/uLNormal1.5-6.6ProTexas Children'S Hospital The WoodlandsComment on above:Performed By: #### CBCA ####[facility] ([facility])[address] [place], [place] [address], [id number] VIRNEUTROPHILS RELATIVE PERCENT BY AUTOMATED COUNT71.9 %NormalUpper Valley Medical CenterComment on above:Performed By: #### CBCA ####[facility] ([facility] [place] [address] VIRPlatelet mean volume (Bld) [Entitic vol]7.4 fLNormal7-12PHolzer HospitalComment on above:Performed By: #### CBCA ####[facility] ([facility])[address] [place], [place] [address], [id number] VIRPlatelets (Bld) [#/Vol]219 10*3/iVFabewn565-708ZwcEkmzta Fremont HospitalComment on above: Performed By: #### CBCA ####[facility] ([facility])[address] [place], [place] [address], [id number] VIRRBC COUNT2.95 X10E12/LLow3.8-5.2PHolzer HospitalComment on above:Performed By: #### CBCA ####[facility] ([address], [id number] VIRWBC (Bld) [#/Vol]8.7 10*3/uLNormal4-11ProUniversity Hospitals Conneaut Medical Center HospitalComment on above:Performed By: #### CBCA ####[facility] ([facility] [address] [address] VIRCOMPREHENSIVE METABOLIC PANELon 35-89-5637Ayiwybn [Mass/Vol]2.8 g/dLLow 3.2-5.3PHolzer HospitalComment on above:Performed By: #### CMP ####[facility] ([facility], [place] [address] VIRALP [Catalytic activity/Vol]71 U/EXeuiwp41-753CmyQizgbnUpper [facility] Medical Center Comment on above:Performed By: #### CMP ####[facility] ([place] [address] [place] [address] VIRALT [Catalytic activity/Vol]12 U/L Normal<=31PHolzer HospitalComment on above:Performed By: #### CMP ####[facility] ([place] [address], [place] [address] VIRAnion gap [Moles/Vol]10 mmol/LNormal5-15[facility] Comment on above:Performed By: #### CMP ####[facility] ([place] [address] [place] [address] VIRAST [Catalytic activity/Vol]10 U/L Normal<=41ProTexas Children'S Hospital The WoodlandsComment on above:Performed By: #### CMP ####[facility] ([place] [address], [place] [address] VIRBilirubin [Mass/Vol]0.7 mg/dLNormal0.3-1.2PHolzer Hospital Comment on above:Performed By: #### CMP ####[facility] ([place] [address] [place] [address] VIRCalcium [Mass/Vol]8.3 mg/dLLow 8.5-10.5PHolzer HospitalComment on above:Performed By: #### CMP ####[facility] ([place] [address], [place] [address] VIRChloride [Moles/Vol]102 mmol/XUsugph05-759AdfBmiydxUpper [facility] Center Comment on above:Performed By: #### CMP ####[facility] ([address] [place] [address] VIRCO2 [Moles/Vol]28 mmol/WBiztpz35-80 ProMAnderson SanatoriumComment on above:Performed By: #### CMP ####[facility] ([address] [place] [address] VIR Creatinine [Mass/Vol]0.80 mg/dLNormal0.40-1.00[facility] CenterComment on above:Result Comment: METHOD TRACEABLE TO IDMS STANDARDPerformed By: #### CMP ####[facility] ([address] [address] VIRGFR/1.73 sq M.predicted among non-blacks MDRD (S/P/Bld) [Vol rate/Area] 82 mL/min/{1.73_m2}Normal>=60ProTexas Children'S Hospital The WoodlandsComment on above:Result Comment: eGFR not reported due to non-numeric value for Creatinine.Reported eGFR is based ontheCKD-EPI 1 equation that doesnot use a race coefficient. Performed By: #### CMP ####[facility] MEDICAL CAMPUSAriana [facility] ([address] [place] [address] VIRGlucose [Mass/Vol]109 mg/zHPors71-25FdhPenkabTexas Children'S Hospital The WoodlandsComment on above:Performed By: #### CMP ####[facility] ([address] [place] [address] VIRPotassium [Moles/Vol]3.2 mmol/LLow3.5-5.0ProTexas Children'S Hospital The WoodlandsComment on above: Performed By: #### CMP ####[facility] ([address] [place] [address] VIRProtein [Mass/Vol]5.9 g/dLLow6.0-8.0ProTexas Children'S Hospital The WoodlandsComment on above:Performed By: #### CMP ####[facility] ([address] [place] [address] VIRSodium [Moles/Vol]140 mmol/BOtwikd120-697OxsBgnugl Fremont HospitalComment on above: Performed By: #### CMP ####[facility] ([address] [place] [address] VIRUrea nitrogen [Mass/Vol]20 mg/dLNormal5-27 ProMAnderson SanatoriumComment on above:Performed By: #### CMP ####[facility] ([address] [place] [address] VIRMAGNESIUM on 92-15-1110Djkyfwtpm [Mass/Vol]2.2 mg/dLNormal1.8-2.6ProTexas Children'S Hospital The WoodlandsComment on above:Performed By: #### MG ####[facility] ([address] [place] [address] VIRPOTASSIUMon 12-09-2024 Potassium [Moles/Vol]3.4 mmol/LLow3.5-5.0ProTexas Children'S Hospital The WoodlandsComment on above:Performed By: #### K ####[facility] ([address] [place] [address] VIRBEDSIDE GLUCOSEon 75-38-0333Lbihdgb [Mass/Vol]151 mg/yGMqpo00-08MtrDjkxzzTexas Children'S Hospital The WoodlandsComment on above:Performed By: #### BEDG ####[facility] ([address], [place] VIRGlucose [Mass/Vol]100 mg/jNPril72-37NggRdpxsxTexas Children'S Hospital The WoodlandsComment on above:Performed By: #### BEDG ####[facility] ([address], [id number] VIRGlucose [Mass/Vol]151 mg/dL Mira66-46YycSjoxypTexas Children'S Hospital The WoodlandsComment on above:Performed By: #### BEDG ####[facility] ([address], [id number] VIRC-REACTIVE PROTEINon 12-08-2024 REACTIVE PROTEIN8.5 mg/dLHigh<=0.7ProTexas Children'S Hospital The WoodlandsComment on above:Performed By: #### CRP ####[facility] ([address] [place] [address] VIRCBC WITH AUTO DIFFERENTIALon 76-49-7583QYKIPMRGS ABSOLUTE COUNT (10*3/UL) BY AUTOMATED COUNT 0.0 10*3/uLNormal0.0-0.2ProMedModoc Medical CenterComment on above:Performed By: #### CBCA ####[facility] ([address], [id number] VIRBASOPHILS RELATIVE PERCENT BY AUTOMATED COUNT0.4 %Normal [facility] CenterComment on above:Performed By: #### CBCA ####[facility] ([address], [id number] VIR CELLAVISION DIFFERENTIAL TYPEAUTOMATED DIFFERENTIALNormalProTexas Children'S Hospital The WoodlandsComment on above:Performed By: #### CBCA ####[facility] ([address], [id number] VIREosinophils (Bld) [#/Vol] 0.2 10*3/uLNormal0.0-0.4ProTexas Children'S Hospital The WoodlandsComment on above:Performed By: #### CBCA ####[facility] ([address], [id number] VIREOSINOPHILS RELATIVE PERCENT BY AUTOMATED COUNT2.2 % NormalProTexas Children'S Hospital The WoodlandsComment on above:Performed By: #### CBCA ####[facility] ([address], [id number] VIRErythrocyte distribution width (RBC) [Ratio]20.2 %High11.5-15[facility] CenterComment on above:Performed By: #### CBCA ####[facility] ([address], [id number] VIRHematocrit (Bld) [Volume fraction]24.2 %Nyc58-17XpuZibxzfTexas Children'S Hospital The WoodlandsComment on above: Performed By: #### CBCA ####[facility] ([address], [id number] VIRHemoglobin (Bld) [Mass/Vol]7.7 g/dLLow11.7-15.5 [facility] CenterComment on above:Performed By: #### CBCA ####[facility] ([address], [id number] VIR LYMPHOCYTES ABSOLUTE COUNT (10*3/UL) BY AUTOMATED COUNT1.4 10*3/uLNormal1.0-3.5 [facility] CenterComment on above:Performed By: #### CBCA ####[facility] ([address], [id number] VIR LYMPHOCYTES RELATIVE PERCENT BY AUTOMATED COUNT12.6 %NormalProTexas Children'S Hospital The WoodlandsComment on above:Performed By: #### CBCA ####[facility] ([address], [id number] VIRMCH (RBC) [Entitic mass] 25.4 qsAej06-69PlbTifytcUpper Valley Medical CenterComment on above:Performed By: #### CBCA ####[facility]AMPUSA [facility] ([address] [place] [address] VIRMCHC (RBC) [Mass/Vol]31.7 g/zTPtw74-12NlsVmklhbTexas Children'S Hospital The WoodlandsComment on above:Performed By: #### CBCA ####[facility] ([facility])[address] [place] [address] AVE[address], [id number] VIRMCV (RBC) [Entitic vol]80 fLNormal 80-100[facility] CenterComment on above:Performed By: #### CBCA ####[facility] ([address], [id number] VIRMONOCYTES ABSOLUTE COUNT (10*3/UL) BY AUTOMATED COUNT1.0 10*3/uLHigh0.0-0.9 [facility] on above:Performed By: #### CBCA ####[facility] ([address], [id number] VIRMONOCYTES RELATIVE PERCENT BY AUTOMATED COUNT8.8 %NormalUpper Valley Medical CenterComaspirus ontonagon hospital on above:Performed By: #### CBCA ####[facility] ([address], [id number] VIRNEUTROPHILS ABSOLUTE COUNT BY AUTOMATED COUNT8.3 10*3/uLHigh1.5-6.6[facility] on above: Performed By: #### CBCA ####[facility] ([address], [id number] VIRNEUTROPHILS RELATIVE PERCENT BY AUTOMATED COUNT76.0 %NormalUpper Valley Medical CenterComaspirus ontonagon hospital on above:Performed By: #### CBCA ####[facility] ([address], [id number] VIRPlatelet mean volume (Bld) [Entitic vol]7.0 fLNormal7-12ProMedica Scripps Memorial HospitalComment on above:Performed By: #### CBCA ####[facility] ([address] [id number] VIRPlatelets (Bld) [#/Vol]192 10*3/dOTlkdaf752-904ZxhAmesak Fremont HospitalComment on above:Performed By: #### CBCA ####[facility] ([facility])[address] [place], [place] [address]E.[place], [place] VIRRBC COUNT3.02 X10E12/LLow3.8-5.2PHolzer HospitalComment on above:Performed By: #### CBCA ####[facility] ([facility])[address] [place], [place] [address], [place] VIRWBC (Bld) [#/Vol]10.9 10*3/uLNormal4-11ProTexas Children'S Hospital The WoodlandsComment on above:Performed By: #### CBCA ####[facility] ([address] [place] [address] VIRCOMPREHENSIVE METABOLIC PANELon 42-31-7039Jiwaraf [Mass/Vol]3.0 g/dLLow 3.2-5.3PHolzer HospitalComment on above:Performed By: #### CMP ####[facility] ([address], [place] [address] VIRALP [Catalytic activity/Vol]73 U/BNznjfq02-566UskDuctbrUpper Valley Medical Center Comment on above:Performed By: #### CMP ####[facility] ([address] [place] [address] VIRALT [Catalytic activity/Vol]13 U/L Normal<=31PHolzer HospitalComment on above:Performed By: #### CMP ####[facility] ([address] [address] VIRAnion gap [Moles/Vol]9 mmol/LNormal5-15ProTexas Children'S Hospital The WoodlandsComment on above:Performed By: #### CMP ####[facility] ([address] [place] [address] VIRAST [Catalytic activity/Vol]13 U/L Normal<=41ProTexas Children'S Hospital The WoodlandsComment on above:Performed By: #### CMP ####[facility] ([facility])[address] [place] [address] VIRBilirubin [Mass/Vol]0.7 mg/dLNormal0.3-1.2PHolzer Hospital Comment on above:Performed By: #### CMP ####[facility] ([address] [address] VIRCalcium [Mass/Vol]8.4 mg/dLLow 8.5-10.5PHolzer HospitalComment on above:Performed By: #### CMP ####[facility] ([address] [address] VIRChloride [Moles/Vol]106 mmol/NSvlpwo85-021WzfSntxsdUpper Valley Medical Center Comment on above:Performed By: #### CMP ####[facility] ([address] [address] VIRCO2 [Moles/Vol]23 mmol/ANvwzwn90-05 [facility] CenterComment on above:Performed By: #### CMP ####[facility] ([address] [address] VIR Creatinine [Mass/Vol]0.85 mg/dLNormal0.40-1.00ProTexas Children'S Hospital The WoodlandsComment on above:Result Comment: METHOD TRACEABLE TO IDMT STANDARDPerformed By: #### CMP ####[facility] ([address] [address] VIRGFR/1.73 sq M.predicted among non-blacks MDRD (S/P/Bld) [Vol rate/Area] 76 mL/min/{1.73_m2}Normal>=60ProTexas Children'S Hospital The WoodlandsComment on above:Result Comment: eGFR not reported due to non-numeric value for Creatinine.Reported eGFR is based ontheCKD-EPI 2020 equation that doesnot use a race coefficient. Performed By: #### CMP ####[facility] ([address] [place] [address] VIRGlucose [Mass/Vol]131 mg/kHEfrz60-80CyqIokiabTexas Children'S Hospital The WoodlandsComment on above:Performed By: #### CMP ####[facility] ([address] [place] [address] VIRPotassium [Moles/Vol]4.0 mmol/LNormal3.5-5.0ProTexas Children'S Hospital The WoodlandsComment on above: Performed By: #### CMP ####[facility] ([address] [place] [address] VIRProtein [Mass/Vol]6.3 g/dLNormal6.0-8.0ProTexas Children'S Hospital The WoodlandsComment on above:Performed By: #### CMP ####[facility] ([address] [place] [address] VIRSodium [Moles/Vol]138 mmol/NWepxvs532-922UsnDapcbm Fremont HospitalComment on above: Performed By: #### CMP ####[facility] ([address] [place] [address] VIRUrea nitrogen [Mass/Vol]19 mg/dLNormal5-27 ProMAnderson SanatoriumComment on above:Performed By: #### CMP ####[facility] ([address] [place] [address] VIRMAGNESIUM on 20-64-0626Vquvzanir [Mass/Vol]2.2 mg/dLNormal1.8-2.6ProTexas Children'S Hospital The WoodlandsComment on above:Performed By: #### MG ####[facility] ([address] [place] [address] VIRVANCOMYCIN, PEAKon 73-55-0325FMTIHYXHCP PEAK40.3 ug/oKAakk01.0-40.0[facility] Comment on above:Order Comment: To be drawn 1 to 2 hours after the end of the 1700 dosePerformed By: #### VANCPK ####[facility] ([address] [place] [address] VIRVANCOMYCIN, TROUGHon 12-08-2024 VANCOMYCIN SJGIDE10.4 ug/mLNormal5.0-20.0ProTexas [facility] Hospital The WoodlandsComment on above:Order Comment: To be drawn prior to the 1700 dosePerformed By: #### VANCTR ####[facility] ([address] [address] VIRBEDSIDE GLUCOSEon 95-38-7931Rubietw [Mass/Vol]117 mg/mZUxbk84-76 [facility] CenterComment on above:Performed By: #### BEDG ####[facility] ([address] [id number] VIRGlucose [Mass/Vol]180 mg/zIVkva54-73KxrJkwddqTexas Children'S Hospital The WoodlandsComment on above:Performed By: #### BEDG ####[facility] ([address] [address] VIRGlucose [Mass/Vol]139 mg/nGErah41-67OoiVucgxgTexas Children'S Hospital The WoodlandsComment on above:Performed By: #### BEDG ####[facility] ([address] VIRC-REACTIVE PROTEINon 12-07-2024 REACTIVE FYWMPFF27.7 mg/dLHigh<=0.7[facility] CenterComment on above:Performed By: #### CRP ####[address] [address] VIRCBC WITH AUTO DIFFERENTIALon 55-18-7130RUDNVVJXO ABSOLUTE COUNT (10*3/UL) BY AUTOMATED COUNT0.0 10*3/uLNormal 0.0-0.2Pro[facility]ica Scripp[facility] Memorial HospitalComment on above:Performed By: #### CBCA ####[facility] ([address], [id number] VIRBASOPHILS RELATIVE PERCENT BY AUTOMATED COUNT0.5 %NormalUpper Valley Medical CenterComment on above:Performed By: #### CBCA ####[facility] ([address], [id number] VIRCELLAVISION DIFFERENTIAL TYPEAUTOMATED DIFFERENTIALNormalUpper Valley Medical CenterComment on above: Performed By: #### CBCA ####[facility] ([address], [id number] VIREosinophils (Bld) [#/Vol]0.0 10*3/uLNormal0.0-0.4 [facility] CenterComment on above:Performed By: #### CBCA ####[facility] ([address], [id number] VIR EOSINOPHILS RELATIVE PERCENT BY AUTOMATED COUNT0.1 %NormalUpper Valley Medical CenterComment on above:Performed By: #### CBCA ####[facility] ([address], [id number] VIRErythrocyte distribution width (RBC) [Ratio]20.1 %High11.5-15Upper Valley Medical CenterComment on above: Performed By: #### CBCA ####[facility] ([address], [id number] VIRHematocrit (Bld) [Volume fraction]21.7 %Bxu44-34 [facility] Medical CenterComment on above:Performed By: #### CBCA ####[facility] ([address] [place] [id number] VIRHemoglobin (Bld) [Mass/Vol]7.1 g/dLLow11.7-15.5PHolzer HospitalComment on above: Performed By: #### CBCA ####[facility] ([address], [id number] VIRLYMPHOCYTES ABSOLUTE COUNT (10*3/UL) BY AUTOMATED COUNT0.8 10*3/uLLow1.0-3.5PHolzer HospitalComment on above:Performed By: #### CBCA ####[facility] ([address], [id number] VIRLYMPHOCYTES RELATIVE PERCENT BY AUTOMATED COUNT8.1 % NormalProTexas Children'S Hospital The WoodlandsComment on above:Performed By: #### CBCA ####[facility] ([address], [id number] VIRMCH (RBC) [Entitic mass]25.5 uwTiq84-48RhmCszixmUpper Valley Medical CenterComment on above:Performed By: #### CBCA ####[facility] ([address], [id number] VIRMCHC (RBC) [Mass/Vol]33.0 g/lBVkvjvh40-95 [facility] Medical CenterComment on above:Performed By: #### CBCA ####[facility] ([address], [id number] VIRMCV (RBC) [Entitic vol]77 gUGtw24-172GxlHvaffvTexas Children'S Hospital The WoodlandsComment on above:Performed By: #### CBCA ####[facility] ([address], [id number] VIRMONOCYTES ABSOLUTE COUNT (10*3/UL) BY AUTOMATED COUNT0.9 10*3/uLNormal0.0-0.9Upper [facility] Medical CenterComment on above:Performed By: #### CBCA ####[facility] ([facility])[address] [place], [place] [address], [id number] VIRMONOCYTES RELATIVE PERCENT BY AUTOMATED COUNT9.1 %Normal [facility] Medical CenterComment on above:Performed By: #### CBCA ####[facility] ([facility])[address] [place], [place] [address], [id number] VIR NEUTROPHILS ABSOLUTE COUNT BY AUTOMATED COUNT7.7 10*3/uLHigh1.5-6.6ProTexas Children'S Hospital The WoodlandsComment on above:Performed By: #### CBCA ####[facility] ([address], [id number] VIRNEUTROPHILS RELATIVE PERCENT BY AUTOMATED COUNT82.2 %NormalUpper Valley Medical CenterComment on above:Performed By: #### CBCA ####[facility] ([address], [id number] VIRPlatelet mean volume (Bld) [Entitic vol]6.6 fLLow7-12PHolzer HospitalComment on above:Performed By: #### CBCA ####[facility] ([address] [place] [address] VIRPlatelets (Bld) [#/Vol]166 10*3/sVJdqlbf389-006WlmJyfkze Fremont HospitalComment on above:Performed By: #### CBCA ####[facility] ([address], [id number] VIRRBC COUNT2.80 X10E12/LLow 3.8-5.2PHolzer HospitalComment on above:Performed By: #### CBCA ####[facility] ([address], [id number] VIRWBC (Bld) [#/Vol]9.4 10*3/uLNormal4-11ProTexas Children'S Hospital The WoodlandsComment on above:Performed By: #### CBCA ####[facility] ([place] [address], [id number] VIRCOMPREHENSIVE METABOLIC PANELon 12-07-2024 Albumin [Mass/Vol]3.0 g/dLLow3.2-5.3PHolzer HospitalComment on above: Performed By: #### CMP ####[facility] ([place] [address] [place] [address] VIRALP [Catalytic activity/Vol]73 U/BXhpwtp86-155 [facility] CenterComment on above:Performed By: #### CMP ####[facility] ([address] [place] [address] VIRALT [Catalytic activity/Vol]14 U/LNormal<=31PHolzer HospitalComment on above:Performed By: #### CMP ####[place] [address] [address] VIRAnion gap [Moles/Vol]13 mmol/LNormal5-15 [facility] Medical CenterComment on above:Performed By: #### CMP ####[facility] ([address] [place] [address] VIRAST [Catalytic activity/Vol]14 U/LNormal<=41ProMedica Scripps Memorial HospitalComment on above:Performed By: #### CMP ####[facility] ([place] [address] [address] VIRBilirubin [Mass/Vol]0.9 mg/dLNormal0.3-1.2 [facility] Medical CenterComment on above:Performed By: #### CMP ####[facility] ([address] [place] [address] VIRCalcium [Mass/Vol]8.2 mg/dLLow8.5-10.5PKit [facility] HospitalComment on above: Performed By: #### CMP ####[facility] ([address] [place] [address] VIRChloride [Moles/Vol]103 mmol/DCmtyfe34-704 [facility] Medical CenterComment on above:Performed By: #### CMP ####[facility]USA [facility] ([address] [place] [address] VIRCO2 [Moles/Vol]23 mmol/DZumohs27-20IehIkfqhv [facility] Memorial HospitalComment on above: Performed By: #### CMP ####[facility] ([address] [place] [address] VIRCreatinine [Mass/Vol]0.71 mg/dLNormal0.40-1.00 [facility] Medical CenterComment on above:Result Comment: METHOD TRACEABLE TO IDMS STANDARDPerformed By: #### CMP ####[facility] ([address] [place] [address] VIREGFR (CKD-EPI) NON-RACE DEPENDENT >^90Normal>=60ProTexas Children'S Hospital The WoodlandsComment on above:Result Comment: Reported eGFR is based on theCKD-EPI 2020 equation that doesnot use a race coefficient.Performed By: #### CMP ####[facility]USA [facility] ([address] [place] [place] [address] VIRGlucose [Mass/Vol]123 mg/dLHigh 65-99ProTexas Children'S Hospital The WoodlandsComment on above:Performed By: #### CMP ####[facility] ([address], [place] [address] VIRPotassium [Moles/Vol]2.6 mmol/LCritically low3.5-5.0[facility] Medical CenterComment on above:Performed By: #### CMP ####[facility] ([address] [place] [address] VIRProtein [Mass/Vol]6.1 g/dL Normal6.0-8.0[facility] Medical CenterComment on above:Performed By: #### CMP ####[facility] ([address], [place] [address] VIRSodium [Moles/Vol]139 mmol/FLvuyfk279-529AslIocirdCedar Park Regional Medical Center on above:Performed By: #### CMP ####[facility] ([address] [place] [address] VIRUrea nitrogen [Mass/Vol]14 mg/dL Normal5-27ProTexas Children'S Hospital The WoodlandsComment on above:Performed By: #### CMP ####[facility] ([address] [address] VIRMAGNESIUMon 15-76-1522Ktybltdbq [Mass/Vol]2.1 mg/dLNormal1.8-2.6 ProMAnderson SanatoriumComment on above:Performed By: #### MG ####[facility] ([address] [address] VIRMR FOOT LT W WO CONTon 65-78-3102YO FOOT LT W WO CONTNormalProTexas Children'S Hospital The Woodlands POTASSIUMon 60-19-6174Clpoznbvm [Moles/Vol]3.6 mmol/LNormal3.5-5.0ProTexas Children'S Hospital The WoodlandsComment on above:Performed By: #### K ####[facility] ([address] [place] [address] VIRPotassium [Moles/Vol]3.6 mmol/LNormal3.5-5.0ProTexas Children'S Hospital The WoodlandsComment on above: Performed By: #### K ####[facility] ([address] [address] VIRBEDSIDE GLUCOSEon 08-38-4639Kssurpj [Mass/Vol]169 mg/zQSgrl03-01LwrIxgkqnTexas Children'S Hospital The WoodlandsComment on above:Performed By: #### BEDG ####[facility] ([facility])[address] [place] [address] [place] [address] VIRGlucose [Mass/Vol]170 mg/zHGblj85-97FzrUoppesTexas Children'S Hospital The WoodlandsComment on above:Performed By: #### BEDG ####[facility] ([facility])[address] [place] [address] AVE[address], [id number] VIRGlucose [Mass/Vol]145 mg/lUKsiq90-36 ProMAnderson SanatoriumComment on above:Performed By: #### BEDG ####[facility] ([facility])[address] [place] [address] AVE.[place], [id number] VIRCBC WITH AUTO DIFFERENTIALon 93-57-7443USDBJHBDX ABSOLUTE COUNT (10*3/UL) BY AUTOMATED COUNT0.1 10*3/uLNormal0.0-0.2ProMedModoc Medical CenterComment on above: Performed By: #### CBCA ####[facility] ([address], [id number] VIRBASOPHILS RELATIVE PERCENT BY AUTOMATED COUNT0.7 % NormalUpper Valley Medical CenterComment on above:Performed By: #### CBCA ####[facility] ([facility])[address] [place] [address] [place], [id number] VIRCELLAVISION DIFFERENTIAL TYPEAUTOMATED DIFFERENTIALNormalProTexas Children'S Hospital The WoodlandsComment on above:Performed By: #### CBCA ####[facility] ([address], [id number] VIREosinophils (Bld) [#/Vol] 0.0 10*3/uLNormal0.0-0.4[facility] Medical CenterComment on above:Performed By: #### CBCA ####[facility] ([facility])[address] [place] [address] [address], [id number] VIREOSINOPHILS RELATIVE PERCENT BY AUTOMATED COUNT0.0 % NormalUpper Valley Medical CenterComment on above:Performed By: #### CBCA ####[facility] ([address], [id number] VIRErythrocyte distribution width (RBC) [Ratio]20.3 %High11.5-15[facility] Medical CenterComment on above:Performed By: #### CBCA ####[facility] ([address], [id number] VIRHematocrit (Bld) [Volume fraction]22.9 %Eln10-94RwbRnfsvtTexas Children'S Hospital The WoodlandsComment on above: Performed By: #### CBCA ####[facility] ([address], [id number] VIRHemoglobin (Bld) [Mass/Vol]7.2 g/dLLow11.7-15.5 [facility] Medical CenterComment on above:Performed By: #### CBCA ####[facility] ([address], [id number] VIR LYMPHOCYTES ABSOLUTE COUNT (10*3/UL) BY AUTOMATED COUNT0.7 10*3/uLLow1.0-3.5 [facility] Medical CenterComaspirus ontonagon hospital on above:Performed By: #### CBCA ####[facility] ([address], [id number] VIR LYMPHOCYTES RELATIVE PERCENT BY AUTOMATED COUNT5.9 %NormalProTexas Children'S Hospital The WoodlandsComment on above:Performed By: #### CBCA ####[facility] ([address], [id number] VIRMCH (RBC) [Entitic mass] 24.8 bfDkq05-54EpuOefyceUpper Valley Medical CenterComment on above:Performed By: #### CBCA ####[facility] ([address] [place] [address] VIRMCHC (RBC) [Mass/Vol]31.3 g/tEDju26-60JmvWjrqtpTexas Children'S Hospital The WoodlandsComment on above:Performed By: #### CBCA ####[facility] ([address], [id number] VIRMCV (RBC) [Entitic vol]79 fLLow 80-100ProTexas Children'S Hospital The WoodlandsComment on above:Performed By: #### CBCA ####[facility] ([address], [id number] VIRMONOCYTES ABSOLUTE COUNT (10*3/UL) BY AUTOMATED COUNT0.9 10*3/uLNormal0.0-0.9 [facility] CenterComment on above:Performed By: #### CBCA ####[facility] ([address], [id number] VIRMONOCYTES RELATIVE PERCENT BY AUTOMATED COUNT7.4 %NormalUpper Valley Medical CenterComment on above:Performed By: #### CBCA ####[facility] ([address], [id number] VIRNEUTROPHILS ABSOLUTE COUNT BY AUTOMATED COUNT9.9 10*3/uLHigh1.5-6.6ProTexas Children'S Hospital The WoodlandsComment on above: Performed By: #### CBCA ####[facility] ([address], [id number] VIRNEUTROPHILS RELATIVE PERCENT BY AUTOMATED COUNT86.0 %NormalUpper Valley Medical CenterComment on above:Performed By: #### CBCA ####[facility] ([address], [id number] VIRPlatelet mean volume (Bld) [Entitic vol]6.5 fLLow7-12ProMedica Scripps Memorial HospitalComment on above:Performed By: #### CBCA ####[facility] ([address], [id number] VIRPlatelets (Bld) [#/Vol]197 10*3/tWZnxosu550-921JvwZhakvl [facility]remont HospitalComment on above:Performed By: #### CBCA ####[facility] ([facility])[address] [place], [place] [address]T [address], [place] VIRRBC COUNT2.89 X10E12/LLow3.8-5.2PHolzer HospitalComment on above:Performed By: #### CBCA ####[facility] ([facility])[address] [place], [place] [address]T AVE.[facility] [id number] VIRWBC (Bld) [#/Vol]11.5 10*3/uLHigh4-11[facility] CenterComment on above:Performed By: #### CBCA ####[facility] ([address] [place] [address] VIRCOMPREHENSIVE METABOLIC PANELon 17-23-5367Yybdzht [Mass/Vol]2.9 g/dLLow 3.2-5.3PHolzer HospitalComment on above:Performed By: #### CMP ####[facility] ([address], [place] [address] VIRALP [Catalytic activity/Vol]77 U/BUtwrbx75-856OtvOddpwgUpper Valley Medical Center Comment on above:Performed By: #### CMP ####[facility] ([address] [place] [address] VIRALT [Catalytic activity/Vol]12 U/L Normal<=31PHolzer HospitalComment on above:Performed By: #### CMP ####[facility] ([address], [place] [address] VIRAnion gap [Moles/Vol]12 mmol/LNormal5-15[facility] Comment on above:Performed By: #### CMP ####[facility] ([address] [place] [address] VIRAST [Catalytic activity/Vol]13 U/L Normal<=41ProTexas Children'S Hospital The WoodlandsComment on above:Performed By: #### CMP ####[facility] ([address], [place] [address] VIRBilirubin [Mass/Vol]0.5 mg/dLNormal0.3-1.2PHolzer Hospital Comment on above:Performed By: #### CMP ####[facility] ([address] [place] [address] VIRCalcium [Mass/Vol]8.4 mg/dLLow 8.5-10.5PHolzer HospitalComment on above:Performed By: #### CMP ####[facility] ([address], [place] [address] VIRChloride [Moles/Vol]112 mmol/VSxai49-585MwzQtasigUpper Valley Medical Center Comment on above:Performed By: #### CMP ####[facility] ([address] [place] [address] VIRCO2 [Moles/Vol]16 mmol/WOvz33-26 [facility] CenterComment on above:Performed By: #### CMP ####[facility] ([address] [place] [address] VIR Creatinine [Mass/Vol]0.88 mg/dLNormal0.40-1.00[facility] Medical CenterComment on above:Result Comment: METHOD TRACEABLE TO IDMS STANDARDPerformed By: #### CMP ####[facility] ([address] [address] VIRGFR/1.73 sq M.predicted among non-blacks MDRD (S/P/Bld) [Vol rate/Area] 73 mL/min/{1.73_m2}Normal>=60ProTexas Children'S Hospital The WoodlandsComment on above:Result Comment: eGFR not reported due to non-numeric value for Creatinine.Reported eGFR is based ontheCKD-EPI 1 equation that doesnot use a race coefficient. Performed By: #### CMP ####[facility] ([address] [place] [address] VIRGlucose [Mass/Vol]146 mg/jEVrpq38-08LspQliddfTexas Children'S Hospital The WoodlandsComment on above:Performed By: #### CMP ####[facility] ([address] [place] [address] VIRPotassium [Moles/Vol]3.5 mmol/LNormal3.5-5.0ProTexas Children'S Hospital The WoodlandsComment on above: Performed By: #### CMP ####[facility] ([address] [place] [address] VIRProtein [Mass/Vol]6.0 g/dLNormal6.0-8.0ProTexas Children'S Hospital The WoodlandsComment on above:Performed By: #### CMP ####[facility] ([address] [place] [address] VIRSodium [Moles/Vol]140 mmol/DFwemaw044-312TtdRhlexw Fremont HospitalComment on above: Performed By: #### CMP ####[facility] ([address] [place] [address] VIRUrea nitrogen [Mass/Vol]24 mg/dLNormal5-27 ProMAnderson SanatoriumComment on above:Performed By: #### CMP ####[facility] ([address] [place] [address] VIRMAGNESIUM on 17-31-9980Hbdgdhefh [Mass/Vol]2.2 mg/dLNormal1.8-2.6ProTexas Children'S Hospital The WoodlandsComment on above:Performed By: #### MG ####[facility] ([address] [place] [address] VIRPOTASSIUMon 12-06-2024 Potassium [Moles/Vol]3.3 mmol/LLow3.5-5.0ProTexas Children'S Hospital The WoodlandsComment on above:Performed By: #### K ####[facility] ([facility])[address] [place] [address] [place] [address] VIRSUPERFICIAL WOUND CULTUREon 12-06-2024 SUPERFICIAL WOUND CULTURESusceptibleProTexas Children'S Hospital The WoodlandsComment on above: Performed By: #### WCSUP ####[facility] ([facility])[address], [place] [address] VIRBEDSIDE GLUCOSEon 40-48-7268Vwdrmbl [Mass/Vol]193 mg/xZNfvh15-04TrwWyjrcgTexas Children'S Hospital The WoodlandsComment on above:Performed By: #### BEDG ####[facility] MEDICAL CAMPUSAriana [facility] ([facility])[address] [place] [address] [address].[place], [place] VIRGlucose [Mass/Vol]144 mg/lQVcfx70-68EqsTymzoqTexas Children'S Hospital The WoodlandsComment on above:Performed By: #### BEDG ####[facility] ([address], [place] VIRBLOOD CULTUREon 12-05-2024 Bacteria identified Cx Nom (Bld)CULTURE RESULTS NO GROWTH [address] Charles HospitalComment on above:Order Comment: *SIRS Criteria: (must display [...] Results may be affected.Performed By: #### BC ####[facility] ([facility])[address], [place] [address] VIR Bacteria identified Cx Nom (Bld)CULTURE RESULTS NO GROWTH 5 DAYSNormalProTexas Children'S Hospital The WoodlandsComment on above:Order Comment: *SIRS Criteria: (must display [...] Results may be affected.Performed By: #### BC ####[facility] ([place])[address] [facility] [address], [place] [address] VIRC- REACTIVE PROTEINon 12-05-2024 REACTIVE LXKREXP36.3 mg/dLHigh<=0.7[facility] Medical CenterComment on above:Performed By: #### CRP ####[facility] ([facility])[address] [place], [place] [address] [address] VIRCBC WITH AUTO DIFFERENTIALon 60-32-1915NSRGWUCXIUN ROSIE CELLS IN BLOOD BY LIGHT MICROSCOPY1+ NormalUpper Valley Medical CenterComment on above:Result Comment: This is an appended report. These results have been appended to a previously preliminary verified report.Performed By: #### CBCA ####[facility] ([facility])[address] [place] [address] [id number] VIRCELLAVISION DIFFERENTIAL TYPEMANUAL DIFFERENTIALNormalUpper Valley Medical CenterComment on above:Result Comment: This is an appended report. These results have been appended to a previously preliminary verified report.Performed By: #### CBCA ####[facility] ([address] [id number] VIRCELLAVISION HYPOCHROMIA IN BLOOD BY LIGHT MICROSCOPY1+[facility] Comment on above:Result Comment: This is an appended report. These results have been appended to a previously preliminary verified report.Performed By: #### CBCA ####[facility] ([facility])[address] [place] [address] VIRCELLAVISION LYMPHOCYTES ABSOLUTE COUNT (10*3/UL) BY MANUAL COUNT0.8 10*3/uLLow1.0-3.5PHolzer HospitalComment on above:Result Comment: This is an appended report. These results have been appended to a previously prelimi nary verified report.Performed By: #### CBCA ####[facility] ([facility])[address] [place] [id number] VIRCELLAVISION LYMPHOCYTES RELATIVE PERCENT BY MANUAL COUNT6 %NormalProTexas Children'S Hospital The WoodlandsComment on above:Result Comment: This is an appended report. These results have been appended to a previously preliminary verified report.Performed By: #### CBCA ####[facility] ([address] VIRCELLAVISION MONOCYTES ABSOLUTE COUNT (10*3/UL) IN BLOOD BY MANUAL COUNT0.8 10*3/uLNormal0.0-0.9[facility] Medical CenterComment on above:Result Comment: This is an appended report. These results have been appended to a previously preliminary verified report.Performed By: #### CBCA ####[facility] MED[facility] CAMPUSAriana [facility] ([facility])[address] [place] [address] [id number] VIRCELLAVISION MONOCYTES RELATIVE PERCENT BY MANUAL COUNT6 %NormalProTexas Children'S Hospital The [facility]lands Comment on above:Result Comment: This is an appended report. These results have been appended to a previously preliminary verified report.Performed By: #### CBCA ####[facility] ([facility])[address] [place] [address] VIRCELLAVISION NEUTROPHILS ABSOLUTE COUNT BY MANUAL COUNT12.2 10*3/uLHigh 1.5-6.6[facility] Medical CenterComaspirus ontonagon hospital on above:Result Comment: This is an appended report. These results have been appended to a previously preliminary verified report.Performed By: #### CBCA ####[facility] ([facility])[address], [id number] VIRCELLAVISION NEUTROPHILS RELATIVE PERCENT BY MANUAL COUNT88 %NormalUpper Valley Medical CenterComaspirus ontonagon hospital on above: Result Comment: This is an appended report. These results have been appended to a previously preliminary verified report.Performed By: #### CBCA ####[facility] ([facility])[address], [id number] VIR CELLAVISION RBC FRAGMENTS1+NormalProTexas Children'S Hospital The WoodlandsComment on above: Result Comment: This is an appended report. These results have been appended to a previously preliminary verified report.Performed By: #### CBCA ####[facility] ([address], [id number] VIR Erythrocyte distribution width (RBC) [Ratio]20.6 %High11.5-15Upper [facility] Medical CenterComment on above:Performed By: #### CBCA ####[facility] ([address], [id number] VIRHematocrit (Bld) [Volume fraction]24.8 %Has60-70XvjHjrcppUpper Valley Medical CenterComment on above:Performed By: #### CBCA ####[facility] ([address], [id number] VIRHemoglobin (Bld) [Mass/Vol]7.8 g/dLLow11.7-15.5Pro[facility] Scripp[facility] Memorial HospitalComment on above:Performed By: #### CBCA ####[facility] ([address], [id number] VIRMCH (RBC) [Entitic mass]25.0 pgYvv25-36EmtAvbfihTexas Children'S Hospital The WoodlandsComment on above:Performed By: #### CBCA ####[facility] ([address], [id number] VIRMCHC (RBC) [Mass/Vol]31.5 g/aIFeq25-03TzaQcmcpwTexas Children'S Hospital The WoodlandsComment on above:Performed By: #### CBCA ####[facility] ([address], [id number] VIRMCV (RBC) [Entitic vol]79 yJRdx02-919DqaMmirhvTexas Children'S Hospital The WoodlandsComment on above:Performed By: #### CBCA ####[facility] ([address], [id number] VIRPlatelet mean volume (Bld) [Entitic vol]6.5 fLLow7-12PHolzer HospitalComment on above:Performed By: #### CBCA ####[facility] ([address], [id number] VIRPlatelets (Bld) [#/Vol]235 10*3/hLIcfwqc926-589RwuVojamz Fremont HospitalComment on above:Performed By: #### CBCA ####[facility] ([address], [id number] VIRRBC COUNT3.13 X10E12/LLow3.8-5.2PHolzer HospitalComment on above:Performed By: #### CBCA ####[facility] ([address], [id number] VIRWBC (Bld) [#/Vol]13.8 10*3/uLHigh4-11ProTexas Children'S Hospital The WoodlandsComment on above:Performed By: #### CBCA ####[facility] ([address] [place] [address] VIRCOMPREHENSIVE METABOLIC PANELon 36-98-1045Rsskalg [Mass/Vol]3.4 g/dL Normal3.2-5.3PHolzer HospitalComment on above:Performed By: #### CMP ####[facility] ([facility])[address], [place] [address] VIRALP [Catalytic activity/Vol]86 U/VYilelh12-588EosNmchcgUpper Valley Medical Center Comment on above:Performed By: #### CMP ####[facility] ([facility])[address] [place] [address] VIRALT [Catalytic activity/Vol]14 U/L Normal<=31PHolzer HospitalComment on above:Performed By: #### CMP ####[facility] ([facility])[address], [place] [address] VIRAnion gap [Moles/Vol]13 mmol/LNormal5-15[facility] Comment on above:Performed By: #### CMP ####[facility] ([place] [address] [place] [address] VIRAST [Catalytic activity/Vol]15 U/L Normal<=41ProTexas Children'S Hospital The WoodlandsComment on above:Performed By: #### CMP ####[facility] ([place] [address], [place] [address] VIRBilirubin [Mass/Vol]0.5 mg/dLNormal0.3-1.2PHolzer Hospital Comment on above:Performed By: #### CMP ####[facility] ([place] [address] [place] [address] VIRCalcium [Mass/Vol]8.9 mg/dLNormal 8.5-10.5PHolzer HospitalComment on above:Performed By: #### CMP ####[facility] ([place] [address], [place] [address] VIRChloride [Moles/Vol]108 mmol/NOvmwtk55-932DjkUfxumdUpper Valley Medical Center Comment on above:Performed By: #### CMP ####[facility] ([place] [address] [place] [address] VIRCO2 [Moles/Vol]18 mmol/PLky52-94 ProMAnderson SanatoriumComment on above:Performed By: #### CMP ####[facility] ([address] [place] [address] VIR Creatinine [Mass/Vol]1.20 mg/dLHigh0.40-1.00ProTexas Children'S Hospital The WoodlandsComment on above:Result Comment: METHOD TRACEABLE TO IDMS STANDARDPerformed By: #### CMP ####[facility] ([address] [address] VIRGFR/1.73 sq M.predicted among non-blacks MDRD (S/P/Bld) [Vol rate/Area] 50 mL/min/{1.73_m2}Low>=60ProTexas Children'S Hospital The WoodlandsComment on above:Result Comment: eGFR not reported due to non-numeric value for Creatinine.Reported eGFR is based ontheCKD-EPI 2020 equation that doesnot use a race coefficient. Performed By: #### CMP ####[facility] ([address] [address] VIRGlucose [Mass/Vol]123 mg/fAPqeb59-56QibHuvdvcTexas Children'S Hospital The WoodlandsComment on above:Performed By: #### CMP ####[facility] ([address] [address] VIRPotassium [Moles/Vol]3.1 mmol/LLow3.5-5.0ProTexas Children'S Hospital The WoodlandsComment on above: Performed By: #### CMP ####[address] [address] VIRProtein [Mass/Vol]6.7 g/dLNormal6.0-8.0ProTexas Children'S Hospital The WoodlandsComment on above:Performed By: #### CMP ####[facility] ([address] [place] [address] VIRSodium [Moles/Vol]139 mmol/PGslyxt857-201MfrShkksk Fremont HospitalComment on above: Performed By: #### CMP ####[facility] ([address] [place] [address] VIRUrea nitrogen [Mass/Vol]30 mg/dLHigh5-27Upper Valley Medical CenterComment on above:Performed By: #### CMP ####[facility] ([address] [place] [address] VIRLACTATE W/ REFLEX on 86-63-4813ZLAGQZL W/REFLEX1.1 mmol/LNormal0.4-2.0[facility] Comment on above:Order Comment: Result did not trigger repeat Lactate,re-order if needed.Performed By: #### LACTS ####[facility] ([address] [address] VIRMRSA PCR NASAL SWABon 12-05-2024 MRSA PCR NASAL SWABNegativeNormalNegativeProTexas Children'S Hospital The WoodlandsComment on above:Performed By: #### MRSPCR ####[facility] ([facility])[address] [facility] [address], [place] [address] VIRPOTASSIUMon 72-79-8054Uripdkdrc [Moles/Vol]3.4 mmol/LLow3.5-5.0Upper Valley Medical CenterComment on above: Performed By: #### K ####[facility] ([address] [address] VIRXR FOOT LT MIN 3 VWSon [id number] FOOT LT MIN 3 VWS NormalUpper Valley Medical CenterXR HIPS BILAT W OR WO PELVIS 5+ VWSon 12-05-2024 XR HIPS BILAT W OR WO PELVIS 5+ VWSNormalUpper Valley Medical CenterCB with Auto Differentialon 85-11-4567Tiivbjazl (Bld) [#/Vol]0.07 10*3/uLBon SecBrown Memorial HospitalBasophils/100 WBC (Bld)1 %0 - 2 %[facility] [...] [Entitic mass]25.5 pg25.2 - 33.5 pgBon Secours Cherrington Hospitaly HealthMCHC (RBC) [Mass/Vol]31.2 g/dL 28.4 - [...] HealthRBC (Bld) [#/Vol]3.41 10*6/uLLow3.95 - 5.11 m/uLBon OhiohealthSegmented neutrophils/100 WBC (Bld)8.08 %Bon OhiohealthWBC other (Bld) [#/Vol]10.9Bon [facility]healthBon OhiohealthCMPon 68-72-0296Hxveodw [Mass/Vol]3.5 g/dL3.5 - 5.2 g/dLBon OhiohealthAlbumin/Globulin [Mass ratio]1.6 {ratio}1.0 - 2.5Bon [facility]healthALP [Catalytic activity/Vol]68 U/L35 - 104 U/LBon [facility] HealthALT [Catalytic activity/Vol]8 U/LLow10 - 35 U/LBon OhiohealthAnion gap [Moles/Vol]11 mmol/L9 - 16 mmol/LBon [facility] HealthAST [Catalytic activity/Vol]11 U/L10 - 35 U/LBon OhiohealthBilirubin [Mass/Vol]mg/dL 0.00 - 1.20 mg/dLBon [facility]healthCalcium [Mass/Vol]8.6 mg/dL8.6 - 10.4 mg/dLBon [facility]healthChloride [Moles/Vol]110 mmol/LHigh98 - 107 mmol/L [facility] HospitalCO2 [Moles/Vol]18 mmol/LLow20 - 31 mmol/LBon [facility]healthCreatinine [Mass/Vol]0.7 mg/dL0.50 - 0.90 mg/dLBon [facility]healthEst, Glom Filt Rate89- PINFBon OhiohealthComment on above: These results are not intended [...] secretion. Glucose [Mass/Vol]84 mg/dL74 - 99 mg/dLBon OhiohealthInterpretation and review of laboratory resultsAbnormalBon [facility] HealthPotassium [Moles/Vol]4.0 mmol/L3.7 - 5.3 mmol/LBon [facility] HealthProtein [Mass/Vol] 5.8 g/dLLow6.6 - 8.7 g/dLBon [facility] HealthSodium [Moles/Vol]139 mmol/L136 - 145 mmol/LBon OhiohealthUrea nitrogen [Mass/Vol]58 mg/dLHigh8 - 23 mg/dLBon OhiohealthUrea nitrogen/Creatinine [Mass ratio]83 mg/mgHigh9 - 20Bon OhiohealthBon [facility] HealthCT Pelvis WO contraston 90-16-4089Tvwdlfek abnormal right hip is similar in appearance from the previous study. If there is strong clinical concern for pathologic fracture, nonemergent MRI should be considered.. [facility] RIS CONSOLIDATEDEXAMINATION: CT OF THE PELVIS [...] pathologic fracture, nonemergent MRI should be considered.. [facility] HospitalRadiology Study observation (narrative)[facility] HospitalCT Pelvis WO contrastOrdered By: Ramya Maico on 82-75-4217Usm [facility] Programeter Work Phone: Microscopic Urinalysison 23-64-5460Iqvxbjcbyf cells LM.HPF (Urine sed) [#/Area]0 TO 2Bon SecBrown Memorial HospitalRBC LM.HPF (Urine sed) [#/Area]NoneBon OhiohealthWBC LM.HPF (Urine sed) [#/Area]0 TO 2Bon OhiohealthBon [facility] HealthProtime-INRon 40-85-4771DCA Coag (PPP) [Relative time]1.4 {INR}[facility] HospitalComment on above: Therapeutic Range: Moderate Anticoagulant Intensity: INR = 2.0-3.0 High Anticoagulant Intensity: INR = 2.5-3.5 Interpretation and review of laboratory resultsAbnormalInova Fairfax Hospital PT Coag (PPP) [Time]17.4 sHighBon OhiohealthBon [facility] Health Urinalysison 44-47-6839Qdrbdcvsh Ql (U)NegativeNEGATIVEBon [facility] CenterDigePrint [facility] Health Clarity (U)ClearClearBon [facility] HealthColor (U)YellowYellowInova Fairfax HospitalGlucose Test strip (U) [Mass/Vol]NegativeNEGATIVE mg/dLBon [facility] ProgrameterHemoglobin Auto test strip Ql (U)NegativeNEGATIVEInova [facility] HealthInterpretation and review of laboratory resultsAbnormalBon [facility] HealthKetones (U) [Mass/Vol]NegativeNEGATIVE mg/dLBon [facility] Leukocyte esterase Test strip Ql (U)NegativeNEGATIVEBon [facility] Health Nitrite Ql (U)NegativeNEGATIVEBon SecOur [facility] the [facility] HealthpH (U)6.0 [pH]5.0 - 9.0[facility] HealthProtein (U) [Mass/Vol]TRACEAbnormalNEGATIVE mg/dLBon SecMultiCare Good Samaritan HospitalSocial Reality HealthSpecific gravity (U) [Rel density]1.0151.010 - 1.020Bon OhiohealthUrobilinogen Qn (U)Normal0.0 - 1.0 EU/dLBon [facility]healthBon [facility]XR Foot - left 3 Viewson . Osteopenia. 2. Small calcaneal spur. 3. Soft tissue swelling and ulceration at the plantar heel. [facility] CONSOLIDATEDEXAM: 3 or more VIEW(S) XRAY OF THE LEFT FOOT 11/19/2024 12:43:02 PM COMPARISON: 08/12/2024 CLINICAL HISTORY: r/o osteo. ORDERING SYSTEM PROVIDED HISTORY: r/o osteo; TECHNOLOGIST PROVIDED HISTORY: r/o osteo FINDINGS: BONES AND JOINTS: Osteopenia. Small calcaneal spur. No acute fracture. No joint dislocation. SOFT TISSUES: Soft tissue swelling and ulceration at the plantar heel. [facility] Nia Rouse MD - 11/19/2024 EXAM: [...] swelling and ulceration at the plantar heel. [facility] HospitalRadiology Study observation (narrative)[facility] Foot - left 3 ViewsOrdered By: Nia Trejo on 73-87-2241Cgh [facility] Work Phone: XR Pelvis and Hip - bilateral Viewson . No acute osseous abnormality. If there is persistent clinical concern or difficulty weight-bearing CT can be obtained. 2. Severe degenerative changes to the right hip joint appears stable. 3. Stable degenerative changes to both SI joints and visualized lumbar spine. [facility] CONSOLIDATEDEXAMINATION: ONE X-RAY VIEW OF THE [...] Multiple surgical clips to bilateral inguinal regions. [facility] Diego Castellon MD - 11/19/2024 EXAMINATION: [...] both SI joints and visualized lumbar spine. [facility] Media MachinesRadiology Study observation (narrative)[facility] Media MachinesXR Pelvis and Hip - bilateral ViewsOrdered By: Diego Odom on 63-24-6420[employer] Work Phone: Basic Metabolic Panel w/ Reflex to MGon 08-17-2024 Anion gap [Moles/Vol]6 mmol/LLow9 - 16 mmol/LBon Media MachinesCalcium [Mass/Vol]8.7 mg/dL8.6 - 10.4 mg/dLBon [facility] Elite HealthChloride [Moles/Vol] 99 mmol/L98 - 107 mmol/LBon [facility] HealthCO2 [Moles/Vol]32 mmol/LHigh20 - 31 mmol/LBon [facility]healthCreatinine [Mass/Vol]0.8 mg/dL0.50 - 0.90 mg/dLBon [facility]healthEstRadha Rate77- PINFBon [facility] Comment on above: These results are not [...] that affects renal tubular secretion. Glucose [Mass/Vol]117 mg/oAEuxi73 - 99 mg/dLBon [facility] Interpretation and review of laboratory resultsAbnormalBon [facility] Potassium [Moles/Vol]4.9 mmol/L3.7 - 5.3 mmol/LBon [facility]healthSodium [Moles/Vol]137 mmol/L136 - 145 mmol/LBon OhiohealthUrea nitrogen [Mass/Vol]15 mg/dL8 - 23 mg/dLBon OhiohealthUrea nitrogen/Creatinine [Mass ratio]19 mg/mg9 - 20Bon [facility] HospitalCBC auto differentialon 40-99-4299Uysdlzhho (Bld) [#/Vol]0.09 10*3/uLBon [facility]healthBasophils/100 WBC (Bld)1 %0 - 2 %[facility] HospitalEosinophils (Bld) [#/Vol]0.36 10*3/uLBon OhiohealthEosinophils/100 WBC (Bld)5 % High1 - 4 %[facility] HospitalErythrocyte distribution width (RBC) [Ratio] 18.4 %High11.8 - 14.4 %[facility] HospitalHematocrit (Bld) [Volume fraction]33.4 %Low36.3 - 47.1 %[facility] HospitalHemoglobin (Bld) [Mass/Vol]9.7 g/dLLow11.9 - 15.1 g/dLBon Secours Mercy HealthImmature granulocytes (Bld) [#/Vol][facility] HealthImmature granulocytes/100 WBC (Bld)0 %0[facility] HealthInterpretation and review of laboratory results AbnormalBon Secours Mercy HealthLymphocytes/100 WBC (Bld)19 %Low24 - 43 %[facility] HealthLymphocytes/100 WBC (Bld)1.29 %[facility] NorthH (RBC) [Entitic mass]25.3 pg25.2 - 33.5 pgBon [facility] NorthHC (RBC) [Mass/Vol]29 g/dL28.4 - 34.8 g/dLBon [facility]ours [facility] NorthV (RBC) [Entitic vol] 87.2 fL82.6 - 102.9 fLBon Secours Merc HealthMonocytes/100 WBC (Bld)11 %3 - 12 %[facility] HealthMonocytes/100 WBC (Bld)0.74 %[facility] Neutrophils/100 WBC (Bld)64 %36 - 65 %[facility] CenterNucleated RBC/100 WBC (Bld) [Ratio]0 %0.0 per 100 WBCBon Secours Cherrington Hospitaly HealthPlatelet mean volume (Bld) [Entitic vol]9.4 fL8.1 - 13.5 fLBon [facility]ours [facility] HealthPlatelets (Bld) [#/Vol]385 10*3/uLBon [facility] HealthRBC (Bld) [#/Vol]3.83 10*6/uLLow3.95 - 5.11 m/uLCopper Queen Community Hospital Secours [facility] Medical CenterSegmented neutrophils/100 WBC (Bld)4.34 %[facility] CenterWBC other (Bld) [#/Vol]6.8[facility] HealthCo[facility] Hospital Secours Cherrington Hospitaly HealthCulture, Blood 1on 82-59-8213Pgohsaq comment (Unsp spec) [Interp]16ML LFABon Secours Cherrington Hospitaly HealthCulture, Blood 2on 03-10-2499Flnyowh comment (Unsp spec) [Interp]2 ML RIGHT WRIST ONE BOTTLEBon SecBrown Memorial Hospital Laboratoryon 41-02-0211Efxlnehmitmbk identified Cx Nom (Unsp spec)NO GROWTH 5 DAYSBon OhiohealthNo Panel Informationon 62-13-8541Qnmetjma Description.BLOODBon [facility] HospitalBasic Metabolic Panel w/ Reflex to MGon 28-31-6974Skuuj gap [Moles/Vol]8 mmol/LLow9 - 16 mmol/L Bon [facility]healthCalcium [Mass/Vol]8.8 mg/dL8.6 - 10.4 mg/dLBon [facility]healthChloride [Moles/Vol]96 mmol/LLow98 - 107 mmol/LBon [facility]healthCO2 [Moles/Vol]31 mmol/L20 - 31 mmol/LBon [facility]healthCreatinine [Mass/Vol]0.8 mg/dL0.50 - 0.90 mg/dLBon [facility] HospitalSocial Reality Trinity Health System East CampusEst, Glom Filt Rate 84- PINFBon OhiohealthComment on above: These results are not intended [...] that affects renal tubular secretion. Glucose [Mass/Vol]100 mg/hULzru22 - 99 mg/dLBon [facility] Interpretation and review of laboratory resultsAbnormalBon [facility] Potassium [Moles/Vol]4.7 mmol/L3.7 - 5.3 mmol/LBon [facility]healthSodium [Moles/Vol]135 mmol/XIgp506 - 145 mmol/LBon [facility]healthUrea nitrogen [Mass/Vol]13 mg/dL8 - 23 mg/dLBon [facility] ProgrameterUrea nitrogen/Creatinine [Mass ratio]16 mg/mg9 - 20Bon [facility] HospitalCBC auto differentialon 44-74-5377Pwfvbfphl (Bld) [#/Vol]0.1 10*3/uLBon [facility] Medical CenterDigePrint [facility] CenterBasophils/100 WBC (Bld)1 %0 - 2 %[facility] Hospitaly HealthEosinophils (Bld) [#/Vol]0.36 10*3/uLBon Secours Mercy HealthEosinophils/100 WBC (Bld)5 % High1 - 4 %[facility] HealthErythrocyte distribution width (RBC) [Ratio] 18.3 %High11.8 - 14.4 %[facility] HealthHematocrit (Bld) [Volume fraction]34.7 %Low36.3 - 47.1 %Bon [facility]Our [facility] Hospital HealthHemoglobin (Bld) [Mass/Vol]10.3 g/dLLow11.9 - 15.1 g/dLBon [facility]ours [facility] Medical CenterImmature granulocytes (Bld) [#/Vol][facility] HealthImmature granulocytes/100 WBC (Bld)0 %0[facility] HealthInterpretation and review of laboratory results AbnormalBon [facility] HealthLymphocytes/100 WBC (Bld)16 %Low24 - 43 %Bon [facility]Our [facility] HealthLymphocytes/100 WBC (Bld)1.1 %[facility] SecUpper Valley Medical CenterH (RBC) [Entitic mass]25.8 pg25.2 - 33.5 pgBon [facility] NorthHC (RBC) [Mass/Vol]29.7 g/dL28.4 - 34.8 g/dLBon SecUpper Valley Medical CenterV (RBC) [Entitic vol]86.8 fL82.6 - 102.9 fLBon [facility] HealthMonocytes/100 WBC (Bld)11 %3 - 12 %[facility] SecOur Lady [facility] the Sea Hospital HealthMonocytes/100 WBC (Bld)0.77 %[facility] SecBrown Memorial HospitalNeutrophils/100 WBC (Bld)67 %High36 - 65 %[facility] SecBrown Memorial Hospital Nucleated RBC/100 WBC (Bld) [Ratio]0 %0.0 per 100 WBCInova Fairfax Hospital Platelet mean volume (Bld) [Entitic vol]8.9 fL8.1 - 13.5 fLBon [facility]ours [facility] HealthPlatelets (Bld) [#/Vol]362 10*3/uLBon [facility] HealthRBC (Bld) [#/Vol]4 10*6/uL3.95 - 5.11 m/uLInova Fairfax HospitalSegmented neutrophils/100 WBC (Bld)4.58 %Bon OhiohealthWBC other (Bld) [#/Vol] 6.9Bon [facility] HospitalBasic Metabolic Panel w/ Reflex to MGon 49-84-7675Caoki gap [Moles/Vol]7 mmol/LLow9 - 16 mmol/LBon [facility]healthCalcium [Mass/Vol]8.7 mg/dL8.6 - 10.4 mg/dLBon [facility]healthChloride [Moles/Vol]98 mmol/L98 - 107 mmol/LBon [facility]healthCO2 [Moles/Vol]31 mmol/L20 - 31 mmol/LBon [facility]healthCreatinine [Mass/Vol] 0.7 mg/dL0.50 - 0.90 mg/dLBon [facility]healthEst, Glom Filt Rate- PINFBon OhiohealthComment on above: These results are not intended [...] that affects renal tubular secretion. Glucose [Mass/Vol]104 mg/fVWmwv93 - 99 mg/dLBon [facility] Interpretation and review of laboratory resultsAbnormalBon [facility] Potassium [Moles/Vol]5 mmol/L3.7 - 5.3 mmol/LBon [facility]healthSodium [Moles/Vol]136 mmol/L136 - 145 mmol/LBon OhiohealthUrea nitrogen [Mass/Vol]12 mg/dL8 - 23 mg/dLBon OhiohealthUrea nitrogen/Creatinine [Mass ratio]17 mg/mg9 - 20Bon [facility] HospitalCBC auto differentialon [id number] (Bld) [#/Vol]0.08 10*3/uLBon [facility]healthBasophils/100 WBC (Bld)1 %0 - 2 %Bon Secchelsey [facility] Hospitaly HealthEosinophils (Bld) [#/Vol]0.44 10*3/uLBon Secours Mercy HealthEosinophils/100 WBC (Bld)6 % High1 - 4 %Bon Secchel[facility] HealthErythrocyte distribution width (RBC) [Ratio] 18.6 %High11.8 - 14.4 %Bon [facility] HealthHematocrit (Bld) [Volume fraction]34.4 %Low36.3 - 47.1 %Bon [facility] HealthHemoglobin (Bld) [Mass/Vol]10.2 g/dLLow11.9 - 15.1 g/dLBon Secours [facility] Medical CenterImmature granulocytes (Bld) [#/Vol][facility] HealthImmature granulocytes/100 WBC (Bld)0 %0Bon [facility]Our [facility] HealthInterpretation and review of laboratory results AbnormalBon SecMultiCare Good Samaritan Hospitaly HealthLymphocytes/100 WBC (Bld)17 %Low24 - 43 %Bon [facility] HealthLymphocytes/100 WBC (Bld)1.19 %[facility] Secchelsey [facility] Medical CenterMCH (RBC) [Entitic mass]26.2 pg25.2 - 33.5 pgBon SecUpper Valley Medical CenterHC (RBC) [Mass/Vol]29.7 g/dL28.4 - 34.8 g/dLBon SecBrown Memorial HospitalMCV (RBC) [Entitic vol]88.2 fL82.6 - 102.9 fLCopper Queen Community Hospital Secchelsey [facility] HealthMonocytes/100 WBC (Bld)10 %3 - 12 %[facility] Sec[facility] HealthMonocytes/100 WBC (Bld)0.71 %[facility] Secchelsey [facility] Medical CenterNeutrophils/100 WBC (Bld)66 %High36 - 65 %[facility] SecOur Lady of the Sea Hospital Health Nucleated RBC/100 WBC (Bld) [Ratio]0 %0.0 per 100 WBCInova Fairfax Hospital Platelet mean volume (Bld) [Entitic vol]9.7 fL8.1 - 13.5 fLBon [facility]cchel[facility] HealthPlatelets (Bld) [#/Vol]385 10*3/uLBon [facility] HealthRBC (Bld) [#/Vol]3.9 10*6/uLLow3.95 - 5.11 m/uLInova Fairfax HospitalSegmented neutrophils/100 WBC (Bld)4.78 %[facility] HospitalWBC other (Bld) [#/Vol] 7.2Bon [facility] Hospitaln and TIBCon 08-15-2024 Iron [Mass/Vol]15 ug/dLLow37 - 145 ug/dLBon [facility] Medical Centern binding capacity [Mass/Vol]270 ug/dL250 - 450 ug/dLBon [facility] Medical Centern saturation [Mass fraction]6 %Low20 - 55 %[facility] HospitalUIBC255 ug/dL 112 - 347 ug/dLBon [facility]healthNo Panel Informationon 08-15-2024 Interpretation and review of laboratory resultsAbnormSentara Martha Jefferson HospitalReticulocyteson 01-89-9215Thupkbnp reticulocytes/Total reticulocytes (Bld)23.4 %High2.7 - 18.3 %[facility] HospitalInterpretation and review of laboratory resultsAbnormBon Secours Mary Immaculate HospitalRetic Hemoglobin 22.1 pgLow28.2 - 35.7 pgInova Fairfax HospitalReticulocytes (Bld) [#/Vol]0.108 10*3/uLHighInova Fairfax HospitalReticulocytes/100 RBC (Bld)2.8 %High0.5 - 1.9 %[facility] HospitalVitamin B12 & Folateon 63-97-6410Veksukvcw (Vitamin B12) [Mass/Vol]494 pg/mL232 - 1245 pg/mLInova Fairfax HospitalFolate [Mass/Vol]5.3 ng/mL4.8 - 24.2 ng/mLBon Secours Mary Immaculate HospitalVitamin D 25 Hydroxyon [id number]-wzsfhcgnyanxwb D3 [Mass/Vol]19.8 ng/mLLow30.0 - 100.0 ng/mLInova Fairfax HospitalComment on above: Reference Range: Vitamin D status Range Deficiency <20 ng/mL Mild Deficiency 20-30 ng/mL Sufficiency 30-100 ng/mL Toxicity >100 ng/mL Basic Metabolic Panel w/ Reflex to MGon 26-61-2213Ldrhe gap [Moles/Vol]9 mmol/L9 - 16 mmol/LBon Secours [...] HealthBon Secours Mercy HealthCBC auto differential on 26-85-0628Epvndupdc (Bld) [#/Vol]0.06 10*3/uLBon [facility]ours [facility] Health Basophils/100 WBC (Bld)1 %0 - 2 %[facility] HealthEosinophils (Bld) [#/Vol]0.5 10*3/uLHighBon Secours Mercy HealthEosinophils/100 WBC (Bld)6 %High1 - 4 %[facility] HealthErythrocyte distribution width (RBC) [Ratio]18.8 % High11.8 - 14.4 %[facility] Hospitaly HealthHematocrit (Bld) [Volume fraction]33.7 %Low36.3 - 47.1 %[facility] HealthHemoglobin (Bld) [Mass/Vol]10 g/dLLow 11.9 - 15.1 g/dLBon Secours Cherrington Hospitaly HealthImmature granulocytes (Bld) [#/Vol]0.03 10*3/uLBon Secours Mercy HealthImmature granulocytes/100 WBC (Bld)0 %0Bon [facility] Hospitaly HealthInterpretation and review of laboratory resultsAbnormalBon Secours Mercy HealthLymphocytes/100 WBC (Bld)14 %Low24 - 43 %[facility] HealthLymphocytes/100 WBC (Bld)1.07 %LowBon SecUpper Valley Medical CenterH (RBC) [Entitic mass]25.7 pg25.2 - 33.5 pgBon [facility]ours [facility] NorthHC (RBC) [Mass/Vol] 29.7 g/dL28.4 - 34.8 g/dLBon Secours Cherrington Hospitaly [facility] System East CampusMCV (RBC) [Entitic vol]86.6 fL 82.6 - 102.9 fLBon Secours Mercy HealthMonocytes/100 WBC (Bld)9 %3 - 12 %[facility] HealthMonocytes/100 WBC (Bld)0.7 %Bon [facility]Our [facility] Health Neutrophils/100 WBC (Bld)70 %High36 - 65 %[facility] Hospitaly HealthNucleated RBC/100 WBC (Bld) [Ratio]0 %0.0 per 100 WBCBon Secours Cherrington Hospitaly HealthPlatelet mean volume (Bld) [Entitic vol]9.4 fL8.1 - 13.5 fLBon Secours Mercy HealthPlatelets (Bld) [#/Vol]331 10*3/uLBon Secours Mercy HealthRBC (Bld) [#/Vol]3.89 10*6/uLLow 3.95 - 5.11 m/uLBon Secours Cherrington Hospitaly HealthSegmented neutrophils/100 WBC (Bld)5.56 %[facility] Hospitaly HealthWBC other (Bld) [#/Vol]7.9[facility] CenterBon SecBrown Memorial HospitalBasic Metab w/rfx MGon 01-74-1670Gbelv gap [Moles/Vol]11 mmol/LNormal9-16[facility] HospitalComment on above:Performed By: #### CMPX, CDP #### [facility] [address] [place] [address] Dr. [place], [place] [id number] [employer] Supervisor: Apolinar Lemus MDBUN/CRE Hcmhy28Tlrubw7-39Ezygl [facility] Comment on above:Performed By: #### CMPX, CDP #### [address] [place] [address] [employer] Supervisor: Apolinar Lemus MDCalcium [Mass/Vol]8.4 mg/dLLow8.6-10.4[facility] Medical CenterComment on above:Performed By: #### CMPX, CDP #### [address] [place] [address] Phosphorus Processing Supervisor: ANNITA Mckenziehloride [Moles/Vol]102 mmol/WRefclp84-381XxkkaCincinnati Children'S Hospital Medical CenterComment on above:Performed By: #### CMPX, CDP #### [address] [place] [address] Phosphorus Processing Supervisor: Apolinar Lemus MDCO2 [Moles/Vol]27 mmol/WOmzfym76-30Ysevh Tiffin HospitalComment on above:Performed By: #### CMPX, CDP #### [facility] [address] [place] [address] [place] [address] Phosphorus Processing Supervisor: ANNITA Mckenziereatinine [Mass/Vol]0.7 mg/dLNormal0.50-0.90C[facility] Hospital Medical CenterComment on above:Performed By: #### CMPX, CDP #### [address] [place], [place] [id number] Phosphorus Processing Supervisor: Apolinar Lemus MDGFR/1.73 sq M.predicted among non-blacks MDRD (S/P/Bld) [Vol rate/Area]mL/min/{1.73_m2}Normal>60C[facility] Hospital Medical CenterComment on above:Result Comment: These results are not [...] tubular secretion.Performed By: #### CMPX, CDP #### [address] [place] [address] Phosphorus Processing Supervisor: Apolinar Lemus MDGlucose [Mass/Vol]112 mg/dBXaep65-86ArjzzHarrison Community HospitalComment on above:Performed By: #### CMPX, CDP #### [address] [place], [place] [id number] Phosphorus Processing Supervisor: ROJAS Mckenzieotassium [Moles/Vol]3.6 mmol/LLow3.7-5.3MHarrison Community HospitalComment on above:Performed By: #### CMPX, CDP #### [address] [place], [place] [id number] Phosphorus Processing Supervisor: ADÁN Mckenzieodium [Moles/Vol]140 mmol/VUsjrvi411-545QgdrdCincinnati Children'S Hospital Medical CenterComment on above:Performed By: #### CMPX, CDP #### [address] [place] [address] Phosphorus Processing Supervisor: Apolinar Lemus MDUrea nitrogen [Mass/Vol]12 mg/dLNormal8-23C[facility] Hospital Medical CenterComment on above:Performed By: #### CMPX, CDP #### [address] [place] [address] Phosphorus Processing Supervisor: Apolinar Lemus MDDay [facility] w/ Reflex to MGon 08-13-2024 Anion gap [Moles/Vol]11 mmol/L9 - 16 mmol/LBon Secours NeuroCha[facility] Solutionsy HealthCalcium [Mass/Vol]8.4 mg/dLLow8.6 - 10.4 mg/dLBon Secours Mercy HealthChloride [Moles/Vol]102 mmol/L98 - 107 mmol/LBon Secours Cher[facility] Hospitaly HealthCO2 [Moles/Vol]27 mmol/L20 - 31 mmol/LBon Secours [facility] Hospitaly HealthCreatinine [Mass/Vol]0.7 mg/dL0.50 - 0.90 mg/dLBon Secours Cherrington Hospitaly HealthEst, Glom Filt Rate- PINFBon SecMultiCare Good Samaritan HospitalSocial Reality [facility] East CampusComment on above: These results are not intended [...] that affects renal tubular secretion. Glucose [Mass/Vol]112 mg/xCFfly92 - 99 mg/dLBon [facility] Community HospitalSuddenValues Interpretation and review of laboratory resultsAbnormalBon SecBrown Memorial Hospital Potassium [Moles/Vol]3.6 mmol/LLow3.7 - 5.3 mmol/LBon Secours Cherrington Hospitaly [facility] CampusSodium [Moles/Vol]140 mmol/L136 - 145 mmol/LBon SecMultiCare Good Samaritan Hospitaly HealthUrea nitrogen [Mass/Vol]12 mg/dL8 - 23 mg/dLBon Secours Cherrington Hospitaly HealthUrea nitrogen/Creatinine [Mass ratio]17 mg/mg9 - 20Bon [facility] Hospitaly HealthBon Secours Cherrington Hospitaly [facility] CampusCBC auto differentialon [id number] (Bld) [#/Vol]0.07 10*3/uLBon Secours Mercy HealthBasophils/100 WBC (Bld)1 %0 - 2 %[facility] Hospitaly HealthEosinophils (Bld) [#/Vol]0.54 10*3/uLHighBon Secours Mercy HealthEosinophils/100 WBC (Bld)6 %High1 - 4 %[facility] Hospitaly HealthErythrocyte distribution width (RBC) [Ratio]19.1 %High11.8 - 14.4 %[facility] Hospitaly HealthHematocrit (Bld) [Volume fraction]34.3 %Low36.3 - 47.1 %[facility] Hospitaly HealthHemoglobin (Bld) [Mass/Vol]10.1 g/dLLow11.9 - 15.1 g/dLBon Secours Cherrington Hospitaly HealthImmature granulocytes (Bld) [#/Vol]0.03 10*3/uLBon Secours Mercy HealthImmature granulocytes/100 WBC (Bld)0 %0[facility] HealthInterpretation and review of laboratory resultsAbnormalBon Secours Cherrington Hospitaly HealthLymphocytes/100 WBC (Bld)18 %Low24 - 43 %[facility] Hospitaly HealthLymphocytes/100 WBC (Bld)1.55 %Bon SecUpper Valley Medical CenterH (RBC) [Entitic mass]25.4 pg25.2 - 33.5 pgBon Secours [facility] NorthHC (RBC) [Mass/Vol]29.4 g/dL28.4 - 34.8 g/dLBon Secours [facility]ayette Medical CenterMCV (RBC) [Entitic vol]86.4 fL82.6 - 102.9 fLBon Secours [facility] HealthMonocytes/100 WBC (Bld)10 %3 - 12 %[facility] Hospitaly HealthMonocytes/100 WBC (Bld)0.85 %[facility] HealthNeutrophils/100 WBC (Bld)65 %36 - 65 %[facility] Hospitaly HealthNucleated RBC/100 WBC (Bld) [Ratio]0 %0.0 per 100 WBCBon Secours Cherrington Hospitaly HealthPlatelet mean volume (Bld) [Entitic vol]9.1 fL8.1 - 13.5 fLBon Secours Cherrington Hospitaly HealthPlatelets (Bld) [#/Vol]305 10*3/uLBon Secours Cherrington Hospitaly HealthRBC (Bld) [#/Vol]3.97 10*6/uL3.95 - 5.11 m/uLBon Secours Cherrington Hospitaly [facility] East CampusSegmented neutrophils/100 WBC (Bld)5.72 %[facility] Hospitaly HealthWBC other (Bld) [#/Vol] 8.8Bon OhiohealthBon [facility] with Diffon 08-13-2024 Abs. Basophil0.07 k/uLNormal0.00-0.20[facility] HospitalComment on above: Performed By: #### CMPX, CDP #### [address] [place], [place] [address] Phosphorus Processing Supervisor: Cruz Mckenzie.Imm.Granulocyte0.03 k/uLNormal0.00-0.30[facility] HospitalComment on above:Performed By: #### CMPX, CDP #### [address] [place] [address] Phosphorus Processing Supervisor: Cruz Mckenzie.Neutrophil (Seg)5.72 k/uLNormal1.50-8.10[facility] HospitalComment on above:Performed By: #### CMPX, CDP #### [address] [place], [place] [address] Phosphorus Processing Supervisor: Apolinar Lemus MDBasophils/100 WBC (Bld)1 %Normal0-2MMary [facility] HospitalComment on above:Performed By: #### CMPX, CDP #### [address] [place], [place] [address] Phosphorus Processing Supervisor: JADEN Mckenzieosinophils (Bld) [#/Vol]0.54 10*3/uLHigh0.00-0.44 [facility] HospitalComment on above:Performed By: #### CMPX, CDP #### [address] [place], [place] 6[address]3783 Phosphorus Processing Supervisor: JADEN Mckenzieosinophils/100 WBC (Bld)6 %High1-4[facility] HospitalComment on above:Performed By: #### CMPX, CDP #### [address] [place], [place] 4273783 Phosphorus Processing Supervisor: Apolinar Lemus MDErythrocyte distribution width (RBC) [Ratio]19.1 % High11.8-14.4[facility] Medical CenterComment on above:Performed By: #### CMPX, CDP #### [address] [place], [place] 4988883 Phosphorus Processing Supervisor: Apolinar Lemus MDHematocrit (Bld) [Volume fraction]34.3 %Low 36.3-47.1MMary [facility] HospitalComment on above:Performed By: #### CMPX, CDP #### [address] [place], [place] 2048683 Phosphorus Processing Supervisor: Apolinar Lemus MDHemoglobin (Bld) [Mass/Vol]10.1 g/dLLow11.9-15.1 [facility] Medical CenterComment on above:Performed By: #### CMPX, CDP #### [address] [place], [place] [address]83 Phosphorus Processing Supervisor: Apolinar Lemus MDImmature granulocytes/100 WBC (Bld)0 %Jzvfdg4TirplCincinnati Children'S Hospital Medical CenterComment on above:Performed By: #### CMPX, CDP #### [address] [place], [facility] Phosphorus Processing Supervisor: Apolinar Lemus MDLymphocytes (Bld) [#/Vol]1.55 10*3/uLNormal 1.10-3.70[facility] Medical CenterComment on above:Performed By: #### CMPX, CDP #### [address] [place], [place] 9371583 Phosphorus Processing Supervisor: Apolinar Lemus MDLymphocytes/100 WBC (Bld)18 %Hbs24-37Yisel Tiffin HospitalComment on above:Performed By: #### CMPX, CDP #### [address] [place], [place] 2322983 Phosphorus Processing Supervisor: BUZZ MckenzieCH (RBC) [Entitic mass]25.4 xtUibujy28.2-33.5 [facility] Medical CenterComment on above:Performed By: #### CMPX, CDP #### [address] [place], [place] 3056483 Phosphorus Processing Supervisor: BUZZ MckenzieCHC (RBC) [Mass/Vol]29.4 g/jXQhiyes65.4-34.8[facility] HospitalComment on above:Performed By: #### CMPX, CDP #### [address] [place], [place] 3144983 Phosphorus Processing Supervisor: BUZZ MckenzieCV (RBC) [Entitic vol]86.4 aTQfpxyk65.6-102.9 [facility] HospitalComment on above:Performed By: #### CMPX, CDP #### [address] [place], [place] 0637883 Phosphorus Processing Supervisor: BUZZ Mckenzieonocytes (Bld) [#/Vol]0.85 10*3/uLNormal0.10-1.20 [facility] Medical CenterComment on above:Performed By: #### CMPX, CDP #### [address] [place], [place] 2558283 Phosphorus Processing Supervisor: BUZZ Mckenzieonocytes/100 WBC (Bld)10 %Normal3-12[facility] HospitalComment on above:Performed By: #### CMPX, CDP #### [address] [place], [place] 8541983 Phosphorus Processing Supervisor: Apolinar Lemus MDNeutrophil (Seg)65 %Zatfmc08-96Zetbd Tiffin HospitalComment on above:Performed By: #### CMPX, CDP #### [address] [place] [address] Phosphorus Processing Supervisor: SVETLANA Mckenzie Automated0.0 per 100 WBCNormal0.0C[facility] Medical CenterComment on above:Performed By: #### CMPX, CDP #### [address] [place] [address] Phosphorus Processing Supervisor: Nicanor Mckenzie mean volume (Bld) [Entitic vol]9.1 fL Normal8.1-13.5[facility] Medical CenterComment on above:Performed By: #### CMPX, CDP #### [address] [place] [address] Phosphorus Processing Supervisor: Corey Mckenzie (Bld) [#/Vol]305 10*3/rRHdvhps775-622 [facility] HospitalComment on above:Performed By: #### CMPX, CDP #### [address] [place], [facility] Phosphorus Processing Supervisor: GEOVANY Mckenzie (Bld) [#/Vol]3.97 10*6/uLNormal3.95-5.11[facility] Medical CenterComment on above:Performed By: #### CMPX, CDP #### [address] [place], [facility] Phosphorus Processing Supervisor: RAZA Mckenzie (Bld) [#/Vol]8.8 10*3/uLNormal3.5-11.3MHarrison Community HospitalComment on above:Performed By: #### CMPX, CDP #### [address] [place], [place] 8079883 Phosphorus Processing Supervisor: Mihaela Mckenzie Metabolic Panelon 98-71-2430Asmfs gap [Moles/Vol]10 mmol/L9 - 16 mmol/LBon [facility] HealthCalcium [Mass/Vol]8.5 mg/dLLow8.6 - 10.4 mg/dLBon [facility] HealthChloride [Moles/Vol]100 mmol/L98 - 107 mmol/LBon [facility] HealthCO2 [Moles/Vol]28 mmol/L20 - 31 mmol/LBon [facility]healthCreatinine [Mass/Vol]0.7 mg/dL0.50 - 0.90 mg/dLBon [facility] HealthEst, Glom Filt Rate- PINFBon OhiohealthComment on above: These results are not intended [...] secretion. Glucose [Mass/Vol]89 mg/dL74 - 99 mg/dLBon [facility]healthPotassium [Moles/Vol]3.7 mmol/L3.7 - 5.3 mmol/LBon [facility]healthSodium [Moles/Vol] 138 mmol/L136 - 145 mmol/LBon [facility]healthUrea nitrogen [Mass/Vol]8 mg/dL8 - 23 mg/dLBon OhiohealthUrea nitrogen/Creatinine [Mass ratio]11 mg/mg9 - 20Bon OhiohealthBasic Metabolic Profon 31-12-5313Dedkk gap [Moles/Vol]10 mmol/LNormal9-16[facility] Medical CenterComment on above:Performed By: ###JOSE M GRAY #### [facility] [address] [place] [address] [place] [address] Phosphorus Processing Supervisor: Apolinar Lemus MDBUN/CRE Vxesk02Mjspvb2-92Snxoo [facility] Comment on above:Performed By: ###JOSE M GRAY #### [facility] [address] [place] [address] Phosphorus Processing Supervisor: ANNITA Mckenziealcium [Mass/Vol]8.5 mg/dLLow8.6-10.4[facility] Medical CenterComment on above:Performed By: #### GRACIE, UAX #### [address] [place], [place] [address]83 Phosphorus Processing Supervisor: ANNITA Mckenziehloride [Moles/Vol]100 mmol/QIrwqmr43-541OgunuCincinnati Children'S Hospital Medical CenterComment on above:Performed By: #### GRACIE, UAX #### [address] [place], [place] 69[address]83 Phosphorus Processing Supervisor: Apolinar Lemus MDCO2 [Moles/Vol]28 mmol/FRucdeo47-34UylajCincinnati Children'S Hospital Medical CenterComment on above:Performed By: #### GRACIE UAX #### [address] [place], [place] 7196683 Phosphorus Processing Supervisor: ANNITA Mckenziereatinine [Mass/Vol]0.7 mg/dLNormal0.50-0.90[facility] Medical CenterComment on above:Performed By: #### GRACIE, UAX #### [address] [place], [place] 0053683 Phosphorus Processing Supervisor: Apolinar Lemus MDGFR/1.73 sq M.predicted among non-blacks MDRD (S/P/Bld) [Vol rate/Area]mL/min/{1.73_m2}Normal>60[facility] Medical CenterComment on above:Result Comment: These results are not [...] tubular secretion.Performed By: #### GRACIE, UAX #### [address] [place], [place] 2656783 Phosphorus Processing Supervisor: Apolinar Lemus MDGlucose [Mass/Vol]89 mg/tFEizvyx65-91Ugdro [facility]iffin HospitalComment on above:Performed By: #### UMBENEDICTOO, UAX #### [facility] [address] [place] [address] Dr. [place], [place] 1772183 Phosphorus Processing Supervisor: Apolinar Lemus MDPotassium [Moles/Vol]3.7 mmol/LNormal3.7-5.3MMary [facility] HospitalComment on above:Performed By: #### GRACIE, UAX #### [facility] [address] [place] [address] Dr. [place], [place] 717[address]83 Phosphorus Processing Supervisor: Apolinar Lemus MDSodium [Moles/Vol]138 mmol/GFmvxjk929-415ToztlCincinnati Children'S Hospital Medical CenterComment on above:Performed By: #### GRACIE, UAX #### [address] [place], [place] 6380483 Phosphorus Processing Supervisor: Apolinar Lemus MDUrea nitrogen [Mass/Vol]8 mg/dLNormal8-23[facility] Medical CenterComment on above:Performed By: #### GRACIE, UAX #### [address] [place], [place] 4509583 Phosphorus Processing Supervisor: ANNITA Mckenzie-Reactive Proteinon [id number] High sensitivity method [Mass/Vol]21.5 mg/LHigh0.0 - 5.0 mg/LBon [facility] CRP [Mass/Vol]21.5 mg/LHigh0.0-5.0[facility] Medical CenterComment on above: Performed By: #### GRACIE, UAX #### [address] [place] [address] Phosphorus Processing Supervisor: ANNITA MckenzieBC with Auto Differentialon [id number] (Bld) [#/Vol]0.06 10*3/uLBon [facility]healthBasophils/100 WBC (Bld)1 %0 - 2 %[facility] Medical CenterEosinophils (Bld) [#/Vol]0.48 10*3/uLHighBon [facility]ours [facility] Medical CenterEosinophils/100 WBC (Bld)6 %High1 - 4 %[facility] Erythrocyte distribution width (RBC) [Ratio]19.2 %High11.8 - 14.4 %Bon OhiohealthHematocrit (Bld) [Volume fraction]35.7 %Low36.3 - 47.1 %[facility] HospitalHemoglobin (Bld) [Mass/Vol]11.1 g/dLLow11.9 - 15.1 g/dLBon Secours [facility] Medical CenterImmature granulocytes (Bld) [#/Vol][facility] CenterImmature granulocytes/100 WBC (Bld)0 %0Bon [facility]healthInterpretation and review of laboratory resultsAbnormalBon OhiohealthLymphocytes/100 WBC (Bld)16 %Low24 - 43 %[facility] HospitalLymphocytes/100 WBC (Bld)1.18 %[facility]JW Medical CenterH (RBC) [Entitic mass]26.1 pg25.2 - 33.5 pgBon [facility] NorthHC (RBC) [Mass/Vol]31.1 g/dL28.4 - 34.8 g/dLBon SecBrown Memorial HospitalMCV (RBC) [Entitic vol]84 fL82.6 - 102.9 fLBon [facility] HealthMonocytes/100 WBC (Bld)7 %3 - 12 %[facility] HospitalMonocytes/100 WBC (Bld)0.56 %[facility] HospitalNeutrophils/100 WBC (Bld)70 %High36 - 65 %[facility] Nucleated RBC/100 WBC (Bld) [Ratio]0 %0.0 per 100 WBCInova Fairfax Hospital Platelet mean volume (Bld) [Entitic vol]9.3 fL8.1 - 13.5 fLInova Fairfax HospitalPlatelets (Bld) [#/Vol]328 10*3/uLBon SecOur [facility] the [facility] HealthRBC (Bld) [#/Vol]4.25 10*6/uL3.95 - 5.11 m/uLBon [facility]healthSegmented neutrophils/100 WBC (Bld)5.32 %Bon OhiohealthWBC other (Bld) [#/Vol] 7.6Bon [facility]healthBon [facility]healthCB with Diffon 08-12-2024 Abs. Basophil0.06 k/uLNormal0.00-0.20[facility] HospitalComment on above: Performed By: #### TRAVIS, BMP, CDP #### [address] [place] [address] Phosphorus Processing Supervisor: MDAbs. MagalyImm.Granulocyte<0.82Xnjdbu0.00-0.30[facility] HospitalComment on above:Performed By: #### TRAVIS BMP, CDP #### [address] [place] [address] Phosphorus Processing Supervisor: MDAbs. MagalyNeutrophil (Seg)5.32 k/uLNormal1.50-8.10[facility] HospitalComment on above:Performed By: #### TRAVIS BMP, CDP #### [address] [place] [address] Phosphorus Processing Supervisor: Apolinar Lemus MDBasophils/100 WBC (Bld)1 %Normal0-2[facility] HospitalComment on above:Performed By: #### TRAVIS BMP, CDP #### [address] [place] [address] Phosphorus Processing Supervisor: Apolinar Lemus MDEosinophils (Bld) [#/Vol]0.48 10*3/uLHigh0.00-0.44 [facility] HospitalComment on above:Performed By: #### TRAVIS BMP, CDP #### [address] [place] [address] Phosphorus Processing Supervisor: JADEN Mckenzieosinophils/100 WBC (Bld)6 %High1-4[facility] HospitalComment on above:Performed By: #### TRAVIS, BMP, CDP #### [address] [place], [place] [address] Phosphorus Processing Supervisor: Apolinar Lemus MDErythrocyte distribution width (RBC) [Ratio]19.2 % High11.8-14.4[facility] HospitalComment on above:Performed By: #### CRP, BMP, CDP #### [address] [place], [place] [address] Phosphorus Processing Supervisor: Apolinar Lemus MDHematocrit (Bld) [Volume fraction]35.7 %Low 36.3-47.1MMary [facility] HospitalComment on above:Performed By: #### TRAVIS, BMP, CDP #### [address] [place] [address] Phosphorus Processing Supervisor: Apolinar Lemus MDHemoglobin (Bld) [Mass/Vol]11.1 g/dLLow11.9-15.1 [facility] HospitalComment on above:Performed By: #### TRAVIS BMP, CDP #### [address] [place], [place] [address] Phosphorus Processing Supervisor: Apolinar Lemus MDImmature granulocytes/100 WBC (Bld)0 %Ntyhuq0Xzgqv [facility] HospitalComment on above:Performed By: #### TRAVIS, BMP, CDP #### [address] [place], [place] [address] Phosphorus Processing Supervisor: Apolinar Lemus MDLymphocytes (Bld) [#/Vol]1.18 10*3/uLNormal 1.10-3.70[facility] HospitalComment on above:Performed By: #### TRVAIS, BMP, CDP #### [address] [place] [address] Phosphorus Processing Supervisor: Eden Mckenziemphocytes/100 WBC (Bld)16 %Stf75-74Iabij [facility] HospitalComment on above:Performed By: #### TRAVIS, BMP, CDP #### [address] [place] [address] Phosphorus Processing Supervisor: BUZZ MckenzieCH (RBC) [Entitic mass]26.1 myOpbpsi91.2-33.5 [facility] HospitalComment on above:Performed By: #### TRAVIS, BMP, CDP #### [address] [place] [address] Phosphorus Processing Supervisor: BUZZ MckenzieCHC (RBC) [Mass/Vol]31.1 g/dPMxqxlc23.4-34.8[facility] Medical CenterComment on above:Performed By: #### TRAVIS BMP, CDP #### [address] [place] [address] Phosphorus Processing Supervisor: BUZZ MckenzieCV (RBC) [Entitic vol]84.0 vYGfhrwt24.6-102.9 [facility] Medical CenterComment on above:Performed By: #### TRAVIS BMP, CDP #### [address] [place] [address] Phosphorus Processing Supervisor: BUZZ Mckenzieonocytes (Bld) [#/Vol]0.56 10*3/uLNormal0.10-1.20 [facility] Medical CenterComment on above:Performed By: #### TRAVIS, BMP, CDP #### [address] [place] [address] Phosphorus Processing Supervisor: BUZZ Mckenzieonocytes/100 WBC (Bld)7 %Normal3-12[facility] Medical CenterComment on above:Performed By: #### TRAVIS, BMP, CDP #### [address] [place], [place] 624[address]83 Phosphorus Processing Supervisor: Apolinar Lemus MDNeutrophil (Seg)70 %Gsgf66-13NlhhbCincinnati Children'S Hospital Medical Center Comment on above:Performed By: #### CRP, BMP, CDP #### [facility] [address] [place] [address] [place] [address] Phosphorus Processing Supervisor: SVETLANA Mckenzie Automated0.0 per 100 WBCNormal0.0[facility] Medical CenterComment on above:Performed By: #### CRP, BMP, CDP #### [address] [place] [address] Phosphorus Processing Supervisor: Nicanor Mckenzie mean volume (Bld) [Entitic vol]9.3 fL Normal8.1-13.5[facility] Medical CenterComment on above:Performed By: #### TRAVIS, BMP, CDP #### [address] [place] [address] Phosphorus Processing Supervisor: Corey Mckenzie (Bld) [#/Vol]328 10*3/vNWkyfly948-101 [facility] Medical CenterComment on above:Performed By: #### TRAVIS, KYLE, CDP #### [address] [place] [address] Phosphorus Processing Supervisor: GEOVANY Mckenzie (Bld) [#/Vol]4.25 10*6/uLNormal3.95-5.11[facility] Medical CenterComment on above:Performed By: #### TRAVIS, BMP, CDP #### [address] [place] [address] Phosphorus Processing Supervisor: RAZA Mckenzie (Bld) [#/Vol]7.6 10*3/uLNormal3.5-11.3MHarrison Community HospitalComment on above:Performed By: #### TRAVIS, BMP, CDP #### [address] [place] [address] Phosphorus Processing Supervisor: Marce Mckenzie [facility] Informationon [id number] and review of laboratory resultsAbMilbank Area Hospital / Avera HealthXR FOOT LEFT (MIN 3 VIEWS)on [id number] FOOT LEFT (MIN 3 VIEWS) EXAMINATION: THREE [...] Signed by: Carlo Song MD 08/12/24 Final resultNoProtestant HospitalXR FOOT RIGHT (2 VIEWS)on [id number] FOOT RIGHT (2 VIEWS)EXAMINATION: TWO XRAY VIEWS OF THE RIGHT FOOT 08/12/2024 11:24 am COMPARISON: None. HISTORY: ORDERING SYSTEM PROVIDED HISTORY: wound TECHNOLOGIST PROVIDED HISTORY: wound FINDINGS: No evidence of osteomyelitis or soft tissue gas. IMPRESSION: No osteomyelitis or soft tissue gas Interpreted by: Carlo Song MD Signed by: Carlo Song MD 08/12/24 Final resultNoPremier Health [facility] Foot - left 3 Viewson [id number] tissue wound at the tip of the [...] of osteomyelitis or soft tissue gas [facility] HospitalRadiology Study observation (narrative)[facility] HospitalXR Foot - right 2 Viewson [id number] osteomyelitis or soft tissue gas [facility] CONSOLIDATEDEXAMINATION: TWO XRAY VIEWS OF THE RIGHT FOOT 08/12/2024 11:24 am COMPARISON: None. HISTORY: ORDERING SYSTEM PROVIDED HISTORY: wound TECHNOLOGIST PROVIDED HISTORY: wound FINDINGS: No evidence of osteomyelitis or soft tissue gas. [facility] Carlo Rios MD - 08/12/2024 EXAMINATION: TWO XRAY VIEWS OF THE RIGHT FOOT 08/12/2024 11:24 am COMPARISON: None. HISTORY: ORDERING SYSTEM PROVIDED HISTORY: wound TECHNOLOGIST PROVIDED HISTORY: wound FINDINGS: No evidence of osteomyelitis or soft tissue gas. IMPRESSION: No osteomyelitis or soft tissue gas [facility] Hospital[facility] Study observation (narrative)[facility] Foot - right 2 ViewsOrdered By: Carlo Song on [id number] County Regional Healthcare Work Phone: Cult, Bloodon [id number], BloodSpecimen Description .BLOOD Special Requests RIGHT AC 20ML Culture NO GROWTH 5 DAYS Report Status FINAL 08/11/2024[facility] Medical CenterComment on above: Performed By: #### CMPX, CDP #### [facility] [address] [place] [address] [place] [address] Phosphorus Processing Supervisor: Lavonne Mckenzie,Bloodon [id number],BloodSpecimen Description .BLOOD Special Requests Larm Culture NO GROWTH 5 DAYS Report Status FINAL 08/11/2024[facility] Beachwood Medical CenterComment on above: Performed By: #### CMPX, CDP #### [facility] [address] [place] [address] [place] [address] [employer] Supervisor: Mihaela Mckenzie Metab w/rfx MGon [id number] gap [Moles/Vol]8 mmol/LLow9-16[facility] Medical CenterComment on above:Performed By: #### BMPX, CDP #### [address] [place] [address] [employer] Supervisor: Apolinar Lemus MDBUN/CRE Mszyt12Forpwu9-06[facility] Comment on above:Performed By: #### BMPX, CDP #### [address] [place] [address] [employer] Supervisor: ANNITA Mckenziealcium [Mass/Vol]8.2 mg/dLLow8.6-10.4MerMilford HospitalComment on above:Performed By: #### BMPX, CDP #### [address] [place] [address] [employer] Supervisor: ANNITA Mckenziehloride [Moles/Vol]109 mmol/KQudn25-687Pqhrn Tiffin HospitalComment on above:Performed By: #### BMPX, CDP #### [address] [place] [address] [employer] Supervisor: Apolinar Lemus MDCO2 [Moles/Vol]26 mmol/LTfcwzn06-09Civpp [facility]iffin HospitalComment on above:Performed By: #### BMPX, CDP #### [address] [place] [address] [employer] Supervisor: ANNITA Mckenziereatinine [Mass/Vol]0.6 mg/dLNormal0.50-0.90C[facility] Hospital Medical CenterComment on above:Performed By: #### BMPX, CDP #### [address] [place], [place] [id number] [employer] Supervisor: TOM Mckenzie/1.73 sq M.predicted among non-blacks MDRD (S/P/Bld) [Vol rate/Area]mL/min/{1.73_m2}Normal>60[facility] Hospital Medical CenterComment on above:Result Comment: These results are not [...] tubular secretion.Performed By: #### BMPX, CDP #### [address] [place] [address] [employer] Processing Supervisor: Apolinar Lemus MDGlucose [Mass/Vol]96 mg/tRXqknzf20-38BpbkpHarrison Community HospitalComment on above:Performed By: #### BMPX, CDP #### [address] [place], [facility] Phosph[employer] Supervisor: ROJAS Mckenzieotassium [Moles/Vol]3.6 mmol/LLow3.7-5.3MHarrison Community HospitalComment on above:Performed By: #### BMPX, CDP #### [address] [place], [facility] [employer] Processing Supervisor: ADÁN Mckenzieodium [Moles/Vol]143 mmol/MGdscam208-809BtorvCincinnati Children'S Hospital Medical CenterComment on above:Performed By: #### BMPX, CDP #### [address] [place], [facility] [employer] Supervisor: Apolinar Lemus MDUrea nitrogen [Mass/Vol]9 mg/dLNormal8-23[facility] Hospital Medical CenterComment on above:Performed By: #### BMPX, CDP #### [address] [place] [address] [employer] Processing Supervisor: Apolinar Lemus MDDay [facility] Metabolic Panel w/ Reflex to MGon 08-10-2024 Anion gap [Moles/Vol]8 mmol/LLow9 - 16 mmol/LBon SecMultiCare Good Samaritan HospitalSocial Reality HealthCalcium [Mass/Vol]8.2 mg/dLLow8.6 - 10.4 mg/dLBon SecMultiCare Good Samaritan HospitalSocial Reality HealthChloride [Moles/Vol]109 mmol/LHigh98 - 107 mmol/LBon SecOur [facility] the [facility] Hospital HealthCO2 [Moles/Vol] 26 mmol/L20 - 31 mmol/LBon SecBrown Memorial HospitalCreatinine [Mass/Vol]0.6 mg/dL 0.50 - 0.90 mg/dLBon Secours Cherrington HospitalSocial Reality HealthEst, Glom Filt Rate- PINFBon [facility] HospitalSocial Reality [facility] East CampusComment on above: These results are not intended [...] secretion. Glucose [Mass/Vol]96 mg/dL74 - 99 mg/dLBon [facility] CenterDigePrint Cherrington HospitalSuddenValuesInterpretation and review of laboratory resultsAbnormalBon [facility] HospitalSocial Reality [facility] East CampusPotassium [Moles/Vol]3.6 mmol/LLow3.7 - 5.3 mmol/LBon SecMultiCare Good Samaritan HospitalSocial Reality [facility] East CampusSodium [Moles/Vol]143 mmol/L136 - 145 mmol/LBon [facility] ProgrameterUrea nitrogen [Mass/Vol]9 mg/dL8 - 23 mg/dLBon OhiohealthUrea nitrogen/Creatinine [Mass ratio]15 mg/mg9 - 20Bon SecOur Lady of the Sea Hospital HealthBon SecBrown Memorial HospitalCBC auto differentialon [id number] (Bld) [#/Vol]0.04 10*3/uLBon [facility] Medical CenterDigePrint Cherrington HospitalSuddenValuesErythrocyte distribution width (RBC) [Ratio]20 %High11.8 - 14.4 %Bon OhiohealthImmature granulocytes (Bld) [#/Vol][facility] Interpretation and review of laboratory resultsAbnormalInova [facility] Hospital Lymphocytes/100 WBC (Bld)1.02 %LowBon OhiohealthMonocytes/100 WBC (Bld)0.58 %[facility] HospitalNeutrophils/100 WBC (Bld)66 %High36 - 65 %[facility] HospitalNucleated RBC/100 WBC (Bld) [Ratio]0 %0.0 per 100 WBCInova Fairfax HospitalSegmented neutrophils/100 WBC (Bld)4.4 %[facility] HospitalWBC other (Bld) [#/Vol]6.6Bon SecBrown Memorial HospitalBon [facility] CBC with Diffon [id number]. Basophil0.04 k/uLNormal0.00-0.20[facility] Medical CenterComment on above:Performed By: #### BMPX, CDP #### [address] [place] [id number] Phosph[employer] Processing Supervisor: Cruz Mckenzie.Imm.Granulocyte<0.47Hlrttg9.00-0.30[facility] Medical CenterComment on above:Performed By: #### BMPX, CDP #### [address] [place] [address] [employer] Processing Supervisor: Cruz Mckenzie.Neutrophil (Seg)4.40 k/uLNormal1.50-8.10[facility] Medical CenterComment on above:Performed By: #### BMPX, CDP #### [address] [place], [place] [address] [employer] Processing Supervisor: Apolinar Lemus MDBasophils/100 WBC (Bld)1 %Normal0-2Bon OhiohealthComment on above:Performed By: #### BMPX, CDP #### [address] [place] [address]83 Phosph[employer] Processing Supervisor: Apolinar Lemus MDEosinophils (Bld) [#/Vol]0.49 10*3/uLHigh0.00-0.44 [facility] Fairfax HospitalComment on above:Performed By: #### BMPX, CDP #### [address] [place] [address] [employer] Supervisor: Apolinar Lemus MDEosinophils/100 WBC (Bld)8 %High1-4Bon [facility] on above:Performed By: #### BMPX, CDP #### [address] [place], [place] [address] [employer] Processing Supervisor: Apolinar Lemus MDErythrocyte distribution width (RBC) [Ratio]20.0 % High11.8-14.4[facility] on above:Performed By: #### BMPX, CDP #### [address] [place] [address] [employer] Processing Supervisor: Apolinar Lemus MDHematocrit (Bld) [Volume fraction]31.9 %Low 36.3-47.1Bon [facility] on above:Performed By: #### BMPX, CDP #### [address] [place], [place] [address]83 [employer] Processing Supervisor: Apolinar Lemus MDHemoglobin (Bld) [Mass/Vol]9.3 g/dLLow11.9-15.1Bon [facility] on above:Performed By: #### BMPX, CDP #### [address] [place], [facility] Phosph[employer] Processing Supervisor: Apolinar Lemus MDImmature granulocytes/100 WBC (Bld)0 %Yqpjty6Ies [facility] on above:Performed By: #### BMPX, CDP #### [address] [place], [place] [address]83 [employer] Processing Supervisor: Apolinar Lemus MDLymphocytes (Bld) [#/Vol]1.02 10*3/uLLow1.10-3.70 [facility] on above:Performed By: #### BMPX, CDP #### [address] [place] [address] [employer] Supervisor: Apolinar Lemus MDLymphocytes/100 WBC (Bld)16 %Ezh00-18Mtl [facility] on above:Performed By: #### BMPX, CDP #### [address] [place], [facility] Phosph[employer] Processing Supervisor: BUZZ MckenzieCH (RBC) [Entitic mass]25.7 ptQbhqay33.2-33.5Bon [facility] on above:Performed By: #### BMPX, CDP #### [address] [place] [address] [employer] Processing Supervisor: ELLA MckenzieC (RBC) [Mass/Vol]29.2 g/iGJgdtwr07.4-34.8Bon [facility] on above:Performed By: #### BMPX, CDP #### [address] [place] [address] [employer] Processing Supervisor: BUZZ MckenzieCV (RBC) [Entitic vol]88.1 pFNqwntm54.6-102.9Bon [facility] on above:Performed By: #### BMPX, CDP #### [address] [place] [address] [employer] Processing Supervisor: BUZZ Mckenzieonocytes (Bld) [#/Vol]0.58 10*3/uLNormal0.10-1.20 [facility] on above:Performed By: #### BMPX, CDP #### [address] [place], [place] 7[address] Phosph[employer] Processing Supervisor: BUZZ Mckenzieonocytes/100 WBC (Bld)9 %Normal3-12Bon [facility] on above:Performed By: #### BMPX, CDP #### [facility] [address] [place] [address] [employer] Processing Supervisor: Brennen Mckenzie (Seg)66 %Hfnb91-20SyoukCincinnati Children'S Hospital Medical Center Comment on above:Performed By: #### BMPX, CDP #### [facility] [address] [place], [place] [address]83 [employer] Processing Supervisor: SVETLANA Mckenzie Automated0.0 per 100 WBCNormal0.0[facility] Medical CenterComment on above:Performed By: #### BMPX, CDP #### [address] [place], [place] 3020383 Phosph[employer] Processing Supervisor: Nicanor Mckenzie mean volume (Bld) [Entitic vol]9.2 fL Normal8.1-13.5Bon OhiohealthComment on above:Performed By: #### BMPX, CDP #### [address] [place] [address] [employer] Processing Supervisor: Corey Mckenzie (Bld) [#/Vol]258 10*3/lGXnmuua624-416Zjg OhiohealthComaspirus ontonagon hospital on above:Performed By: #### BMPX, CDP #### [address] [place] [address] Phosph[employer] Processing Supervisor: GEOVANY Mckenzie (Bld) [#/Vol]3.62 10*6/uLLow3.95-5.11Bon [facility] on above:Performed By: #### BMPX, CDP #### [address] [place] [address] Phosph[employer] Processing Supervisor: RAZA Mckenzie (Bld) [#/Vol]6.6 10*3/uLNormal3.5-11.3MercMiddlesex HospitalComaspirus ontonagon hospital on above:Performed By: #### BMPX, CDP #### [address] [place] [address] Phosph[employer] Processing Supervisor: Mihaela Mckenzie Metab w/rfx MGon 10-03-9453Trdid gap [Moles/Vol]9 mmol/LNormal9-16MerMercy Health Fairfield Hospital HospitalComment on above:Performed By: #### CMPX, CDP #### [address] [place], [place] [address]183 Phosph[employer] Processing Supervisor: Apolinar Lemus MDBUN/CRE Msgdw66Phywhq5-25Oevsd [facility] Comment on above:Performed By: #### CMPX, CDP #### [address] [place] [address] [employer] Processing Supervisor: ANNITA Mckenziealcium [Mass/Vol]8.0 mg/dLLow8.6-10.4MerMercy Health Fairfield Hospital HospitalComment on above:Performed By: #### CMPX, CDP #### [address] [place] [address] [employer] Processing Supervisor: ANNITA Mckenziehloride [Moles/Vol]110 mmol/BNnyb39-080Ugxza [facility] HospitalComment on above:Performed By: #### CMPX, CDP #### [address] [place] [address] Phosph[employer] Processing Supervisor: Apolinar Lemus MDCO2 [Moles/Vol]23 mmol/UBwjlqi44-29Ocrsn [facility] HospitalComment on above:Performed By: #### CMPX, CDP #### [address] [place], [place] [address]83 Phosph[employer] Processing Supervisor: Apolinar Lemus MDCreatinine [Mass/Vol]0.6 mg/dLNormal0.50-0.90MerMercy Health Fairfield Hospital HospitalComment on above:Performed By: #### CMPX, CDP #### [address] [place] [address] Phosph[employer] Processing Supervisor: Apolinar Lemus MDGFR/1.73 sq M.predicted among non-blacks MDRD (S/P/Bld) [Vol rate/Area]mL/min/{1.73_m2}Normal>60[facility] Medical CenterComment on above:Result Comment: These results are not [...] tubular secretion.Performed By: #### CMPX, CDP #### [address] [place] [address] Phosph[employer] Processing Supervisor: Apolinar Lemus MDGlucose [Mass/Vol]103 mg/eETtaa51-79Jpepi [place] HospitalComment on above:Performed By: #### CMPX, CDP #### [address] [place], [facility] Phosphorus Processing Supervisor: ROJAS Mckenzieotassium [Moles/Vol]3.6 mmol/LLow3.7-5.3Mthe university of [facility]led[facility] medical centery [place] HospitalComment on above:Performed By: #### CMPX, CDP #### [address] [place], [facility] Phosph[employer] Processing Supervisor: ADÁN Mckenzieodium [Moles/Vol]142 mmol/FQwjuhd349-247LqzezCincinnati Children'S Hospital Medical CenterComment on above:Performed By: #### CMPX, CDP #### [address] [place] [address] Phosph[employer] Processing Supervisor: Apolinar Lemus MDUrea nitrogen [Mass/Vol]8 mg/dLNormal8-23[facility] Medical CenterComment on above:Performed By: #### CMPX, CDP #### [address] [place] [address] Phosph[employer] Processing Supervisor: Apolinar Lemus MDDay [facility]ball Hospital Metabolic Panel w/ Reflex to MGon 08-09-2024 Anion gap [Moles/Vol]9 mmol/L9 - 16 mmol/LBon [facility] [employer] HealthCalcium [Mass/Vol]8 mg/dLLow8.6 - 10.4 mg/dLBon [facility] [employer] HealthChloride [Moles/Vol] 110 mmol/LHigh98 - 107 mmol/LBon [facility] [employer] HealthCO2 [Moles/Vol]23 mmol/L20 - 31 mmol/LBon [facility] [employer] [facility] CampusCreatinine [Mass/Vol]0.6 mg/dL0.50 - 0.90 mg/dLBon [facility] Digital CaddiesEst, Glom Filt Rate- PINFBon [facility] HospitalSocial Reality [facility] Comment on above: These results are not [...] that affects renal tubular secretion. Glucose [Mass/Vol]103 mg/sYKkzw47 - 99 mg/dLBon [facility] Medical CenterGilon Business InsightPotassium [Moles/Vol]3.6 mmol/LLow3.7 - 5.3 mmol/LBon [facility] [employer] [facility] CampusSodium [Moles/Vol]142 mmol/L136 - 145 mmol/LBon [facility] [employer]Cha[employer] ProgrameterUrea nitrogen [Mass/Vol]8 mg/dL8 - 23 mg/dLBon [facility] [employer]Cha[employer] ProgrameterUrea nitrogen/Creatinine [Mass ratio]13 mg/mg9 - 20Bon [facility]healthCBC auto differentialon [id number] (Bld) [#/Vol][facility] Media MachinesErythrocyte distribution width (RBC) [Ratio]20 %High11.8 - 14.4 %[facility] [employer] Hemoglobin (Bld) [Mass/Vol]9 g/dLLow11.9 - 15.1 g/dLBon [facility] Medical CenterGilon Business Insight Immature granulocytes (Bld) [#/Vol][facility] Health SystemGilon Business InsightInterpretation and review of laboratory resultsAbnormalBon OhiohealthLymphocytes/100 WBC (Bld)0.77 %LowBon OhiohealthMonocytes/100 WBC (Bld)0.62 %[facility] HospitalNeutrophils/100 WBC (Bld)74 %High36 - 65 %[facility] Nucleated RBC/100 WBC (Bld) [Ratio]0 %0.0 per 100 WBCInova Fairfax Hospital Segmented neutrophils/100 WBC (Bld)5.1 %[facility] HospitalWBC other (Bld) [#/Vol]6.9[facility] CenterBon [facility]healthCBC with Diffon [id number]/100 WBC (Bld)0 %Normal0-2Bon OhiohealthComment on above:Performed By: #### CMPX, CDP #### [address] [place] [address] Phosph[employer] Processing Supervisor: JADEN Mckenzieosinophils (Bld) [#/Vol]0.41 10*3/uLNormal 0.00-0.44Bon [facility] on above:Performed By: #### CMPX, CDP #### [address] [place] [address] [employer] Processing Supervisor: JADEN Mckenzieosinophils/100 WBC (Bld)6 %High1-4Bon [facility] on above:Performed By: #### CMPX, CDP #### [address] [place] [address]83 Phosph[employer] Processing Supervisor: Apolinar Lemus MDHematocrit (Bld) [Volume fraction]29.7 %Low 36.3-47.1Bon [facility] on above:Performed By: #### CMPX, CDP #### [address] [place] [address]83 Phosph[employer] Processing Supervisor: Apolinar Sturtz, MDImmature granulocytes/100 WBC (Bld)0 %Emorxb9Clw [facility] on above:Performed By: #### CMPX, CDP #### [address] [place], [place] 0269283 Phosph[employer] Processing Supervisor: Apolinar Lemus MDLymphocytes/100 WBC (Bld)11 %Wol30-71Flu [facility] on above:Performed By: #### CMPX, CDP #### [address] [place], [place] 2635783 [employer] Processing Supervisor: BUZZ MckenzieCH (RBC) [Entitic mass]26.5 dzGvtckk82.2-33.5Bon [facility] on above:Performed By: #### CMPX, CDP #### [address] [place] [address] Phosph[employer] Processing Supervisor: ELLA MckenzieC (RBC) [Mass/Vol]30.3 g/xIVvqaaf98.4-34.8Bon [facility] on above:Performed By: #### CMPX, CDP #### [address] [place], [place] [address]83 [employer] Processing Supervisor: BUZZ MckenzieCV (RBC) [Entitic vol]87.6 pMOxsltk29.6-102.9Bon [facility] on above:Performed By: #### CMPX, CDP #### [address] [place], [place] [address]483 Phosph[employer] Processing Supervisor: BUZZ Mckenzieonocytes/100 WBC (Bld)9 %Normal3-12Bon [facility] on above:Performed By: #### CMPX, CDP #### [address] [place] [address] Phosph[employer] Processing Supervisor: ROJAS Mckenzielatelet mean volume (Bld) [Entitic vol]9.2 fL Normal8.1-13.5Bon OhiohealthComment on above:Performed By: #### CMPX, CDP #### [address] [place], [facility] Phosph[employer] Processing Supervisor: Corey Mckenzie ([facility]) [#/Vol]252 10*3/fJNsqoql489-883Htz OhiohealthComaspirus ontonagon hospital on above:Performed By: #### CMPX, CDP #### [address] [place], [facility] Phosph[employer] Processing Supervisor: GEOVANY Mckenzie ([facility]) [#/Vol]3.39 10*6/uLLow3.95-5.11Bon [facility] on above:Performed By: #### CMPX, CDP #### [address] [place], [place] [address] Phosph[employer] Processing Supervisor: Cruz Mckenzie. Basophil<0.28Sdhobm5.00-0.20MerMercy Health Fairfield Hospital HospitalComment on above:Performed By: #### CMPX, CDP #### [address] [place] [address] Phosph[employer] Processing Supervisor: MDAbs. MagalyImm.Granulocyte<0.00Qhajpv8.00-0.30MerMilford HospitalComment on above:Performed By: #### CMPX, CDP #### [address] [place], [facility] Phosphorus Processing Supervisor: Cruz Mckenzie.Neutrophil (Seg)5.10 k/uLNormal1.50-8.10MerMercy Health Fairfield Hospital HospitalComment on above:Performed By: #### CMPX, CDP #### [address] [place], [place] 5405383 Phosphorus Processing Supervisor: Apolinar Lemus MDErythrocyte distribution width (RBC) [Ratio]20.0 % High11.8-14.4[facility] Medical CenterComment on above:Performed By: #### CMPX, CDP #### [facility] [address] [place] [address] [place] [address] Phosph[employer] Processing Supervisor: Apolinar Lemus MDHemoglobin (Bld) [Mass/Vol]9.0 g/dLLow11.9-15.1 [facility] Medical CenterComment on above:Performed By: #### CMPX, CDP #### [facility] [address] [place] [address] [place] [address] Phosph[employer] Processing Supervisor: Apolinar Lemus MDLymphocytes (Bld) [#/Vol]0.77 10*3/uLLow1.10-3.70 [facility] Medical CenterComment on above:Performed By: #### CMPX, CDP #### [address] [place], [place] 389[address]83 Phosph[employer] Processing Supervisor: BUZZ Mckenzieonocytes (Bld) [#/Vol]0.62 10*3/uLNormal0.10-1.20 [facility] Medical CenterComment on above:Performed By: #### CMPX, CDP #### [address] [place] [address] Phosph[employer] Processing Supervisor: Apolinar Lemus MDNeutrophil (Seg)74 %Yuab02-90RpwpjCincinnati Children'S Hospital Medical Center Comment on above:Performed By: #### CMPX, CDP #### [facility] [address] [place] [address] Dr. [place], [place] [address]83 [employer] Processing Supervisor: Apolinar Lemus MDNRBC Automated0.0 per 100 WBCNormal0.0[facility] Medical CenterComment on above:Performed By: #### CMPX, CDP #### [address] [place], [place] [address]83 Phosph[employer] Processing Supervisor: Apolinar Lemus MDWBC (Bld) [#/Vol]6.9 10*3/uLNormal3.5-11.3MHarrison Community HospitalComment on above:Performed By: #### CMPX, CDP #### [facility] [address] [place] [address] Phosph[employer] Processing Supervisor: Apolinar Lemus MDHepatic Function Panelon [id number] [Mass/Vol]3.1 g/dLLow3.5 - 5.2 g/dLBon [facility]healthAlbumin/Globulin [Mass ratio]1.3 {ratio}1.0 - 2.5Bon [facility]healthALP [Catalytic activity/Vol]74 U/L35 - 104 U/LBon [facility] HealthALT [Catalytic activity/Vol]9 U/LLow10 - 35 U/LBon [facility] HealthAST [Catalytic activity/Vol]16 U/L10 - 35 U/LBon [facility] HealthBilirubin [Mass/Vol]mg/dL 0.00 - 1.20 mg/dLBon [facility]healthBilirubin.direct [Mass/Vol]mg/dL0.00 - 0.30 mg/dLBon [facility]healthBilirubin.indirect [Mass/Vol]Can not be calculated0.0 - 1.0 mg/dLBon [facility]healthProtein [Mass/Vol]5.4 g/dLLow 6.6 - 8.7 g/dLBon OhiohealthLiver Profileon [id number] [Mass/Vol]3.1 g/dLLow3.5-5.2Mthe university of [facility] medical centery Alger HospitalComment on above:Performed By: #### CMPX, CDP #### [facility] [address] [place] [address] Phosph[employer] Processing Supervisor: Apolinar Lemus, MDAlbumin/Glob Ratio1.6Vwuqey0.0-2.5[facility] Medical CenterComment on above:Performed By: #### CMPX, CDP #### [facility] [address] [place] [address] Phosph[employer] Processing Supervisor: Apolinar Lemus MDAlkaline Phos74 U/XIffrtg60-931Vvopr Alger HospitalComment on above:Performed By: #### CMPX, CDP #### [address] [place], [place] 7673183 Phosph[employer] Processing Supervisor: Apolinar Lemus MDALT [Catalytic activity/Vol]9 U/JMzr80-18Zeaun [facility] HospitalComment on above:Performed By: #### CMPX, CDP #### [address] [place], [place] [address]083 Phosph[employer] Processing Supervisor: Apolinar Lemus MDAST [Catalytic activity/Vol]16 U/LQljode02-98Wjvlt [facility] HospitalComment on above:Performed By: #### CMPX, CDP #### [address] [place], [place] 7855883 Phosph[employer] Processing Supervisor: Apolinar Lemus MDBilirubin [Mass/Vol]mg/dLNormal0.00-1.20[facility] HospitalComment on above:Performed By: #### CMPX, CDP #### [address] [place], [place] [address]83 [employer] Processing Supervisor: Apolinar Lemus MDBilirubin, IndirectCan not be calculatedNormal 0.0-1.0[facility] HospitalComment on above:Performed By: #### CMPX, CDP #### [address] [place] [address] Phosph[employer] Processing Supervisor: Shirlene Mckenzie.indirect [Mass/Vol]mg/dLNormal0.00-0.30 [facility] HospitalComment on above:Performed By: #### CMPX, CDP #### [address] [place] [address] Phosph[employer] Processing Supervisor: Apolinar Lemus MDProtein [Mass/Vol]5.4 g/dLLow6.6-8.7[facility] HospitalComment on above:Performed By: #### CMPX, CDP #### [address] [place] [address] [employer] Supervisor: Marce Mckenzie Panel Informationon [id number] and review of laboratory resultsAbnormStoneSprings Hospital CenterBasic Metab w/rfx MGon [id number] gap [Moles/Vol]8 mmol/LLow 9-16[facility] HospitalComment on above:Performed By: #### CMPX, CDP #### [address] [place], [place] [address]883 [employer] Processing Supervisor: Apolinar Lemus MDBUN/CRE Gsjja62Nnqpag1-85Lohaa [facility] Comment on above:Performed By: #### CMPX, CDP #### [address] [place] [address] Phosph[employer] Processing Supervisor: ANNITA Mckenziealcium [Mass/Vol]7.8 mg/dLLow8.6-10.4[facility] Medical CenterComment on above:Performed By: #### CMPX, CDP #### [address] [place] [address] Phosph[employer] Processing Supervisor: ANNITA Mckenziehloride [Moles/Vol]109 mmol/QIugp89-627Buars [facility] HospitalComment on above:Performed By: #### CMPX, CDP #### [address] [place] [address] Phosph[employer] Processing Supervisor: Apolinar Lemus MDCO2 [Moles/Vol]25 mmol/QIospgr45-45Brtkk Tiffin HospitalComment on above:Performed By: #### CMPX, CDP #### [address] [place], [place] [address]83 [employer] Supervisor: Apolinar Lemus MDCreatinine [Mass/Vol]0.8 mg/dLNormal0.50-0.90[facility] HospitalComment on above:Performed By: #### CMPX, CDP #### [address] [place] [address] [employer] Processing Supervisor: Apolinar Lemus MDGFR/1.73 sq M.predicted among non-blacks MDRD (S/P/Bld) [Vol rate/Area]86 mL/min/{1.73_m2}Normal>60[facility] Comment on above:Result Comment: These results are [...] tubular secretion.Performed By: #### CMPX, CDP #### [address] [place], [facility] Phosph[employer] Processing Supervisor: Apolinar Lemus MDGlucose [Mass/Vol]131 mg/bAJukv53-92LztqgHarrison Community HospitalComment on above:Performed By: #### CMPX, CDP #### [address] [place], [facility] Phosph[employer] Processing Supervisor: ROJAS Mckenzieotassium [Moles/Vol]3.6 mmol/LLow3.7-5.3MHarrison Community HospitalComment on above:Performed By: #### CMPX, CDP #### [address] [place] [address] Phosphorus Processing Supervisor: Apolinar Lemus MDSodium [Moles/Vol]142 mmol/YCxgixr572-947BqyfyCincinnati Children'S Hospital Medical CenterComment on above:Performed By: #### CMPX, CDP #### [address] [place] [address] Phosphorus Processing Supervisor: Apolinar Lemus MDUrea nitrogen [Mass/Vol]11 mg/dLNormal8-23[facility] Medical CenterComment on above:Performed By: #### CMPX, CDP #### [facility] [address] [place] [address] Phosphorus Processing Supervisor: Shante Mckenziealan Metabolic Panel w/ Reflex to MGon 08-08-2024 Anion gap [Moles/Vol]8 mmol/LLow9 - 16 mmol/LBon SecBrown Memorial HospitalCalcium [Mass/Vol]7.8 mg/dLLow8.6 - 10.4 mg/dLBon [facility]healthChloride [Moles/Vol]109 mmol/LHigh98 - 107 mmol/LBon [facility]healthCO2 [Moles/Vol] 25 mmol/L20 - 31 mmol/LBon [facility]healthCreatinine [Mass/Vol]0.8 mg/dL 0.50 - 0.90 mg/dLBon [facility]healthEst, Glom Filt Rate86- PINFBon OhiohealthComment on above: These results are not intended [...] that affects renal tubular secretion. Glucose [Mass/Vol]131 mg/hGYccx99 - 99 mg/dLBon [facility] Interpretation and review of laboratory resultsAbnormalBon [facility] Potassium [Moles/Vol]3.6 mmol/LLow3.7 - 5.3 mmol/LBon [facility]healthSodium [Moles/Vol]142 mmol/L136 - 145 mmol/LBon [facility]healthUrea nitrogen [Mass/Vol]11 mg/dL8 - 23 mg/dLBon [facility]healthUrea nitrogen/Creatinine [Mass ratio]14 mg/mg9 - 20Bon [facility] HospitalCBC auto differentialon [id number] (Bld) [#/Vol]0.05 10*3/uLBon [facility]healthBasophils/100 WBC (Bld)1 %0 - 2 %Bon OhiohealthEosinophils (Bld) [#/Vol]0.33 10*3/uLBon Secours Cherrington Hospitaly HealthEosinophils/100 WBC (Bld)4 %1 - 4 %[facility] Hospitaly HealthErythrocyte distribution width (RBC) [Ratio]19.9 % High11.8 - 14.4 %[facility] HealthHematocrit (Bld) [Volume fraction]31.2 %Low36.3 - 47.1 %[facility] Hospitaly HealthHemoglobin (Bld) [Mass/Vol]9.5 g/dLLow 11.9 - 15.1 g/dLBon Secours [facility]ayette Medical CenterImmature granulocytes (Bld) [#/Vol]0.05 10*3/uLBon Secours Mercy HealthImmature granulocytes/100 WBC (Bld)1 %Isre5Chg Sec[facility] Hospitaly HealthInterpretation and review of laboratory resultsAbnormalBon Secours Cherrington Hospitaly HealthLymphocytes/100 WBC (Bld)9 %Low24 - 43 %[facility] Hospitaly HealthLymphocytes/100 WBC (Bld)0.74 %LowBon Secours [facility] Hospital [facility] NorthH (RBC) [Entitic mass]26.2 pg25.2 - 33.5 pgBon Secours [facility] NorthHC (RBC) [Mass/Vol] 30.4 g/dL28.4 - 34.8 g/dLBon Secours [facility] NorthV (RBC) [Entitic vol]86.2 fL 82.6 - 102.9 fLBon Secours Cherrington Hospitaly HealthMonocytes/100 WBC (Bld)9 %3 - 12 %[facility] Hospitaly HealthMonocytes/100 WBC (Bld)0.75 %[facility] Health Neutrophils/100 WBC (Bld)76 %High36 - 65 %[facility] Hospitaly HealthNucleated RBC/100 WBC (Bld) [Ratio]0 %0.0 per 100 WBCBon Secours Cherrington Hospitaly HealthPlatelet mean volume (Bld) [Entitic vol]8.8 fL8.1 - 13.5 fLBon Secours Cherrington Hospitaly HealthPlatelets (Bld) [#/Vol]277 10*3/uLBon Secours Cherrington Hospitaly HealthRBC (Bld) [#/Vol]3.62 10*6/uLLow 3.95 - 5.11 m/uLBon [facility]healthSegmented neutrophils/100 WBC (Bld)6.48 %Bon OhiohealthWBC other (Bld) [#/Vol]8.4Bon [facility]healthBon OhiohealthCB with Diffon [id number]. Basophil0.05 k/uLNormal 0.00-0.20[facility] HospitalComment on above:Performed By: #### CMPX, CDP #### [address] [place], [place] [address] Phosph[employer] Processing Supervisor: MDAbs. MagalyImm.Granulocyte0.05 k/uLNormal0.00-0.30[facility] HospitalComment on above:Performed By: #### CMPX, CDP #### [address] [place], [facility] Phosph[employer] Processing Supervisor: Cruz Mckenzie.Neutrophil (Seg)6.48 k/uLNormal1.50-8.10[facility] HospitalComment on above:Performed By: #### CMPX, CDP #### [address] [place], [place] [address]83 [employer] Processing Supervisor: Apolinar Lemus MDBasophils/100 WBC (Bld)1 %Normal0-2[facility] HospitalComment on above:Performed By: #### CMPX, CDP #### [address] [place] [address] Phosph[employer] Processing Supervisor: Apolinar Lemus MDEosinophils (Bld) [#/Vol]0.33 10*3/uLNormal 0.00-0.44[facility] HospitalComment on above:Performed By: #### CMPX, CDP #### [address] [place], [place] [address]83 Phosph[employer] Processing Supervisor: JADEN Mckenzieosinophils/100 WBC (Bld)4 %Normal1-4[facility] HospitalComment on above:Performed By: #### CMPX, CDP #### [address] [place] [address] Phosph[employer] Processing Supervisor: Apolinar Lemus MDErythrocyte distribution width (RBC) [Ratio]19.9 % High11.8-14.4[facility] HospitalComment on above:Performed By: #### CMPX, CDP #### [address] [place] [address] Phosph[employer] Processing Supervisor: Apolinar Lemus MDHematocrit (Bld) [Volume fraction]31.2 %Low 36.3-47.1[facility] HospitalComment on above:Performed By: #### CMPX, CDP #### [address] [place] [address] Phosph[employer] Processing Supervisor: Apolinar Lemus MDHemoglobin (Bld) [Mass/Vol]9.5 g/dLLow11.9-15.1 [facility] HospitalComment on above:Performed By: #### CMPX, CDP #### [address] [place] [address] Phosph[employer] Processing Supervisor: Apolinar Lemus MDImmature granulocytes/100 WBC (Bld)1 %Tfha6VjoyxMagruder Hospital HospitalComment on above:Performed By: #### CMPX, CDP #### [address] [place], [facility] Phosph[employer] Processing Supervisor: Apolinar Lemus MDLymphocytes (Bld) [#/Vol]0.74 10*3/uLLow1.10-3.70 [facility] HospitalComment on above:Performed By: #### CMPX, CDP #### [address] [place], [place] [id number] Phosph[employer] Processing Supervisor: Eden Mckenziemphocytes/100 WBC (Bld)9 %Nmf77-74MuohlCincinnati Children'S Hospital Medical CenterComment on above:Performed By: #### CMPX, CDP #### [address] [place] [address] Phosph[employer] Processing Supervisor: BUZZ MckenzieCH (RBC) [Entitic mass]26.2 ccBzrvlj14.2-33.5 [facility] Medical CenterComment on above:Performed By: #### CMPX, CDP #### [address] [place] [address] Phosph[employer] Processing Supervisor: BUZZ MckenzieCHC (RBC) [Mass/Vol]30.4 g/oDXanuvy03.4-34.8[facility] Medical CenterComment on above:Performed By: #### CMPX, CDP #### [address] [place] [address] Phosph[employer] Processing Supervisor: BUZZ MckenzieCV (RBC) [Entitic vol]86.2 bYXfhboz01.6-102.9 [facility] Medical CenterComment on above:Performed By: #### CMPX, CDP #### [address] [place] [address] Phosph[employer] Processing Supervisor: BUZZ Mckenzieonocytes (Bld) [#/Vol]0.75 10*3/uLNormal0.10-1.20 [facility] Medical CenterComment on above:Performed By: #### CMPX, CDP #### [address] [place] [address] Phosphorus Processing Supervisor: BUZZ Mckenzieonocytes/100 WBC (Bld)9 %Normal3-12[facility] Medical CenterComment on above:Performed By: #### CMPX, CDP #### [address] [place], [place] [address]683 Phosph[employer] Processing Supervisor: Apolinar Lemus MDNeutrophil (Seg)76 %Svmv44-97FnudmCincinnati Children'S Hospital Medical Center Comment on above:Performed By: #### CMPX, CDP #### [address] [place] [address] Phosph[employer] Processing Supervisor: SVETLANA Mckenzie Automated0.0 per 100 WBCNormal0.0[facility] Medical CenterComment on above:Performed By: #### CMPX, CDP #### [address] [place] [address] Phosphorus Processing Supervisor: Nicanor Mckenzie mean volume (Bld) [Entitic vol]8.8 fL Normal8.1-13.5[facility] Medical CenterComment on above:Performed By: #### CMPX, CDP #### [address] [place] [address] Phosph[employer] Processing Supervisor: Corey Mckenzie (Bld) [#/Vol]277 10*3/yWTfryjn460-202 [facility] Medical CenterComment on above:Performed By: #### CMPX, CDP #### [address] [place] [address] Phosphorus Processing Supervisor: GEOVANY Mckenzie (Bld) [#/Vol]3.62 10*6/uLLow3.95-5.11[facility] Medical CenterComment on above:Performed By: #### CMPX, CDP #### [address] [place] [address] Phosph[employer] Processing Supervisor: RAZA Mckenzie (Bld) [#/Vol]8.4 10*3/uLNormal3.5-11.3MHarrison Community HospitalComment on above:Performed By: #### CMPX, CDP #### [address] [place], [place] 127[address]83 Phosph[employer] Processing Supervisor: Lavon Mckenziec Metab w/rfx MGon [id number] gap [Moles/Vol]10 mmol/LNormal9-16[facility] Medical CenterComment on above:Performed By: #### BMPX, CDP #### [facility] [address] [place] [address] [place] [address] Phosph[employer] Processing Supervisor: Apolinar Lemus MDBUN/CRE Mdxed60Ifuwhm8-05Bljjc [facility] Comment on above:Performed By: #### BMPX, CDP #### [address] [place] [address] Phosphorus Processing Supervisor: ANNITA Mckenziealcium [Mass/Vol]7.5 mg/dLLow8.6-10.4[facility] Medical CenterComment on above:Performed By: #### BMPX, CDP #### [address] [place] [address] Phosph[employer] Processing Supervisor: ANNITA Mckenziehloride [Moles/Vol]106 mmol/DLwngmi84-177NppzpCincinnati Children'S Hospital Medical CenterComment on above:Performed By: #### BMPX, CDP #### [address] [place] [address] Phosph[employer] Processing Supervisor: Apolinar Lemus MDCO2 [Moles/Vol]22 mmol/MPqpwcc69-07GremnCincinnati Children'S Hospital Medical CenterComment on above:Performed By: #### BMPX, CDP #### [address] [place] [address] Phosph[employer] Processing Supervisor: ANNITA Mckenziereatinine [Mass/Vol]0.8 mg/dLNormal0.50-0.90[facility] Medical CenterComment on above:Performed By: #### BMPX, CDP #### [address] [place], [place] [address] Phosph[employer] Processing Supervisor: Apolinar Lemus MDGFR/1.73 sq M.predicted among non-blacks MDRD (S/P/Bld) [Vol rate/Area]85 mL/min/{1.73_m2}Normal>60[facility] Comment on above:Result Comment: These results are [...] tubular secretion.Performed By: #### BMPX, CDP #### [address] [place] [address] Phosph[employer] Processing Supervisor: Apolinar Lemus MDGlucose [Mass/Vol]124 mg/mXBhst49-09BrkirHarrison Community HospitalComment on above:Performed By: #### KYLEX, CDP #### [address] [place] [address] Phosphorus Processing Supervisor: ROJAS Mckenzieotassium [Moles/Vol]3.7 mmol/LNormal3.7-5.3Mthe university of toledo medical centery Alger HospitalComment on above:Result Comment: Specimen hemolysis has exceeded the interference as defined by Anthony. Value may be falsely increased. Suggest recollection if clinically indicated.Performed By: #### KYLEX, CDP #### [address] [place] [address] Phosphorus Processing Supervisor: ADÁN Mckenzieodium [Moles/Vol]138 mmol/BFbkgow799-438GpxwsCincinnati Children'S Hospital Medical CenterComment on above:Performed By: #### KYLEX, CDP #### [address] [place], [place] [address]83 Phosph[employer] Processing Supervisor: Apolinar Lemus MDUrea nitrogen [Mass/Vol]14 mg/dLNormal8-23[facility] Medical CenterComment on above:Performed By: #### KYLEX, CDP #### [address] [place] [address] Phosphorus Processing Supervisor: Apolinar Lemus MDBasi Metabolic Panel w/ Reflex to MGon 08-07-2024 Anion gap [Moles/Vol]10 mmol/L9 - 16 mmol/LBon [facility] HealthCalcium [Mass/Vol]7.5 mg/dLLow8.6 - 10.4 mg/dLBon [facility]healthChloride [Moles/Vol]106 mmol/L98 - 107 mmol/LBon [facility]healthCO2 [Moles/Vol]22 mmol/L20 - 31 mmol/LBon [facility]healthCreatinine [Mass/Vol]0.8 mg/dL0.50 - 0.90 mg/dLBon [facility]healthEst, Glom Filt Rate85- PINFBon OhiohealthComment on above: These results are not intended [...] that affects renal tubular secretion. Glucose [Mass/Vol]124 mg/lGIbuk57 - 99 mg/dLBon [facility] Interpretation and review of laboratory resultsAbnormalBon [facility] Potassium [Moles/Vol]3.7 mmol/L3.7 - 5.3 mmol/LBon [facility] Medical Centerment on above:Specimen hemolysis has exceeded the interference as defined by Anthony. Value may be falsely increased. Suggest recollection if clinically indicated. Sodium [Moles/Vol]138 mmol/L136 - 145 mmol/LBon [facility]healthUrea nitrogen [Mass/Vol]14 mg/dL8 - 23 mg/dLBon [facility]healthUrea nitrogen/Creatinine [Mass ratio]18 mg/mg9 - 20Bon SecBrown Memorial HospitalBon SecBrown Memorial HospitalCBC auto differentialon [id number] (Bld) [#/Vol] 0.07 10*3/uLBon [facility]healthBasophils/100 WBC (Bld)1 %0 - 2 %Bon [facility]healthEosinophils (Bld) [#/Vol]0.28 10*3/uLBon [facility] Eosinophils/100 WBC (Bld)4 %1 - 4 %Bon OhiohealthErythrocyte distribution width (RBC) [Ratio]19.8 %High11.8 - 14.4 %[facility] Hematocrit (Bld) [Volume fraction]32.5 %Low36.3 - 47.1 %[facility] Hemoglobin (Bld) [Mass/Vol]10 g/dLLow11.9 - 15.1 g/dLBon [facility] Immature granulocytes (Bld) [#/Vol]0.03 10*3/uLBon OhiohealthImmature granulocytes/100 WBC (Bld)0 %0[facility] HospitalInterpretation and review of laboratory resultsAbnormalInova Fairfax HospitalLymphocytes/100 WBC (Bld)13 %Low24 - 43 %[facility] HospitalLymphocytes/100 WBC (Bld)0.93 %LowCJW Medical CenterH (RBC) [Entitic mass]26.5 pg25.2 - 33.5 pgCJW Medical CenterHC (RBC) [Mass/Vol]30.8 g/dL28.4 - 34.8 g/dLBon [facility]healthMCV (RBC) [Entitic vol]86 fL82.6 - 102.9 fLInova Fairfax Hospital Monocytes/100 WBC (Bld)9 %3 - 12 %[facility] HospitalMonocytes/100 WBC (Bld)0.64 %[facility] HospitalNeutrophils/100 WBC (Bld)72 %High36 - 65 %[facility] HospitalNucleated RBC/100 WBC (Bld) [Ratio]0.3 %High0.0 per 100 WBC [facility] HospitalPlatelet mean volume (Bld) [Entitic vol]9.1 fL8.1 - 13.5 fLInova Fairfax HospitalPlatelets (Bld) [#/Vol]283 10*3/uLBon [facility]healthRBC (Bld) [#/Vol]3.78 10*6/uLLow3.95 - 5.11 m/uLBon [facility] Segmented neutrophils/100 WBC (Bld)5.07 %[facility] HospitalWBC other (Bld) [#/Vol]7[facility] HealthBon [facility] with Diffon [id number]. Basophil0.07 k/uLNormal0.00-0.20MerMercy Health Fairfield Hospital HospitalComment on above:Performed By: #### BMPX, CDP #### [address] [place] [address] Phosph[employer] Processing Supervisor: Cruz Mckenzie.Imm.Granulocyte0.03 k/uLNormal0.00-0.30MerMercy Health Fairfield Hospital HospitalComment on above:Performed By: #### BMPX, CDP #### [address] [place] [address] Phosph[employer] Processing Supervisor: Cruz Mckenzie.Neutrophil (Seg)5.07 k/uLNormal1.50-8.10MerMercy Health Fairfield Hospital HospitalComment on above:Performed By: #### BMPX, CDP #### [address] [place], [place] [address] Phosph[employer] Processing Supervisor: Apolinar Lemus MDBasophils/100 WBC (Bld)1 %Normal0-2[facility] HospitalComment on above:Performed By: #### BMPX, CDP #### [address] [place], [place] [address] Phosph[employer] Processing Supervisor: Apolinar Lemus MDEosinophils (Bld) [#/Vol]0.28 10*3/uLNormal 0.00-0.44[facility] HospitalComment on above:Performed By: #### BMPX, CDP #### [address] [place], [place] [address] Phosph[employer] Processing Supervisor: JADEN Mckenzieosinophils/100 WBC (Bld)4 %Normal1-4MerMercy Health Fairfield Hospital HospitalComment on above:Performed By: #### BMPX, CDP #### [address] [place], [facility] Phosph[employer] Processing Supervisor: Hattie Mckenziemature granulocytes/100 WBC (Bld)0 %Szcgwm1HieayCincinnati Children'S Hospital Medical CenterComment on above:Performed By: #### BMPX, CDP #### [facility] [address] [place] [address] Dr. [place], [place] [address] Phosph[employer] Processing Supervisor: Apolinar Lemus MDLymphocytes (Bld) [#/Vol]0.93 10*3/uLLow1.10-3.70 [facility] Medical CenterComment on above:Performed By: #### BMPX, CDP #### [address] [place], [place] [address]83 Phosph[employer] Processing Supervisor: Apolinar Lemus MDLymphocytes/100 WBC (Bld)13 %Pub57-52CdnbpCincinnati Children'S Hospital Medical CenterComment on above:Performed By: #### BMPX, CDP #### [address] [place], [place] [address] Phosph[employer] Processing Supervisor: BUZZ Mckenzieonocytes (Bld) [#/Vol]0.64 10*3/uLNormal0.10-1.20 [facility] Medical CenterComment on above:Performed By: #### BMPX, CDP #### [address] [place], [place] [address] Phosph[employer] Processing Supervisor: BUZZ Mckenzieonocytes/100 WBC (Bld)9 %Normal3-12[facility] Medical CenterComment on above:Performed By: #### BMPX, CDP #### [address] [place], [place] [address]783 Phosph[employer] Processing Supervisor: Apolinar Lemus MDNeutrophil (Seg)72 %Maha60-26BgthzCincinnati Children'S Hospital Medical Center Comment on above:Performed By: #### BMPX, CDP #### [address] [place], [place] [address] Phosph[employer] Processing Supervisor: Apolinar Lemus MDErythrocyte distribution width (RBC) [Ratio]19.8 % High11.8-14.4[facility] HospitalComment on above:Performed By: #### BMPX, CDP #### [address] [place] [address] Phosph[employer] Processing Supervisor: Apolinar Lemus MDHematocrit (Bld) [Volume fraction]32.5 %Low 36.3-47.1MMary [facility] HospitalComment on above:Performed By: #### BMPX, CDP #### [address] [place] [address] Phosphorus Processing Supervisor: Apolinar Lemus MDHemoglobin (Bld) [Mass/Vol]10.0 g/dLLow11.9-15.1 [facility] Medical CenterComment on above:Performed By: #### BMPX, CDP #### [address] [place], [facility] Phosph[employer] Processing Supervisor: BUZZ MckenzieCH (RBC) [Entitic mass]26.5 mtUrsdvf85.2-33.5 [facility] HospitalComment on above:Performed By: #### BMPX, CDP #### [address] [place] [address] Phosphorus Processing Supervisor: ELLA MckenzieC (RBC) [Mass/Vol]30.8 g/oNNuituu78.4-34.8[facility] HospitalComment on above:Performed By: #### BMPX, CDP #### [address] [place] [address] Phosph[employer] Processing Supervisor: BUZZ MckenzieCV (RBC) [Entitic vol]86.0 rDXdnkwp02.6-102.9 [facility] HospitalComment on above:Performed By: #### BMPX, CDP #### [address] [place] [address] Phosph[employer] Processing Supervisor: ANGEL MckenzieBC Automated0.3 per 100 WBCHigh0.0[facility] HospitalComment on above:Performed By: #### BMPX, CDP #### [facility] [address] [place] [address] [place] [address] Phosph[employer] Processing Supervisor: Nicanor Mckenzie mean volume (Bld) [Entitic vol]9.1 fL Normal8.1-13.5[facility] HospitalComment on above:Performed By: #### BMPX, CDP #### [address] [place] [address] Phosph[employer] Processing Supervisor: Corey Mckenzie (Bld) [#/Vol]283 10*3/mPZbgnhm534-931 [facility] HospitalComment on above:Performed By: #### BMPX, CDP #### [address] [place] [address] Phosph[employer] Processing Supervisor: GEOVANY Mckenzie (Bld) [#/Vol]3.78 10*6/uLLow3.95-5.11[facility] HospitalComment on above:Performed By: #### BMPX, CDP #### [address] [place] [address] Phosph[employer] Processing Supervisor: RAZA Mckenzie (Bld) [#/Vol]7.0 10*3/uLNormal3.5-11.3MMary [facility] HospitalComment on above:Performed By: #### BMPX, CDP #### [address] [place] [address] Phosph[employer] Processing Supervisor: LEANDRO Mckenzie 12 Lead [id number] Ccsf16VDNKnw [facility] HealthP Gunh93rwlpndqJph [facility] HealthP-R Dqytiesb068 msBon [facility] HealthQ-T Cwzziuub495 msBon [facility] HealthQRS Kfwchuth50 ms [facility] HealthQTc Calculation (Ara)402 msBon Secours [facility] HealthR Fajardo-17degreesRiverside Health SystemDigePrint [facility] Medical CenterT Nwti54mtwrxtgAyaInova Fairfax Hospital Ventricular Vtpf91AFIVrx [facility] Consider ACUTE CORONARY SYNDROME (ACS) Sinus bradycardia Possible Left atrial enlargement Nonspecific ST abnormality ECG interpretation of ACS is based on presence of symptoms and T-wave inversion in Septal leads Abnormal ECG When compared with ECG of 02-Jan-2024 16:02, T wave inversion no longer evident in Inferior leads T wave inversion less evident in Anterior leads Confirmed by Josef Brooks ([id number]) on 08/07/2024 8:24:00 AMMemorial Satilla HealthJosef venegas MD - 08/07/2024 Consider ACUTE CORONARY [...] in Anterior leads Confirmed by Josef Brooks ([id number]) on 08/07/2024 8:24:00 AM [facility] Health SystemGilon Business InsightRiverside Health SystemGilon Business InsightVascular duplex lower extremity arteries bilateralOrdered By: Timothy John on [id number] surface area Derived from formula1.56 m2[facility] [employer] Work Phone: Left BROCK mid PSV24.8 cm/sBon [employer] Work Phone: Left HOUSE CARPENTER prox PSV91.5 cm/sBon [employer] Work Phone: Left peroneal mid PSV16 cm/sBon [employer] Work Phone: Left PFA prox PSV31.6 cm/sBon [employer] Work Phone: Left DIRECTOR PUBLIC POLICY mid PSV28.1 cm/sBon [employer] Work Phone: Left SFA dist PSV48.2 cm/[place] Work Phone: Right BROCK mid PSV29.7 cm/sBon [facility] [employer] Work Phone: [phone] HOUSE CARPENTER dist PSV79.8 cm/sBon [facility] [employer] Work Phone: [phone] HOUSE CARPENTER prox PSV40.3 cm/sBon [facility] [employer] Work Phone: [phone] peronal mid PSV19.9 cm/sBon [facility] [employer] Work Phone: [phone] Pop A dist PSV39.6 cm/sBon [facility] [employer] Work Phone: [phone] Pop A prox PSV24.8 cm/sBon [facility] [employer] Work Phone: Right Pop A prox otilio ratio0.85Bon SecGilon Business [employer] Work Phone: Right DIRECTOR PUBLIC POLICY mid PSV24.8 cm/sBon [facility] [employer] Work Phone: Right SFA dist PSV29.2 cm/sBon [facility] [employer] Work Phone: Right SFA dist otilio ratio0.93Bon SecG[facility] [employer] Work Phone: Right SFA mid PSV31.4 cm/sBon [facility] [employer] Work Phone: Bon SecG[facility] [employer] Work Phone: Vascular duplex lower extremity arteries bilateralon [id number] right superficial femoral artery is occluded with [...] difficult to visualize the proximal and distal anastomosis.[facility] CV CPACSRadiology Study observation (narrative)[facility] HospitalCBC auto differentialon [id number] (Bld) [#/Vol]0.08 10*3/uLBon OhiohealthBasophils/100 WBC (Bld)1 %0 - 2 %[facility] HospitalEosinophils (Bld) [#/Vol]0.39 10*3/uLBon [facility] Eosinophils/100 WBC (Bld)5 %High1 - 4 %[facility] HospitalErythrocyte distribution width (RBC) [Ratio]19.4 %High11.8 - 14.4 %[facility] Hematocrit (Bld) [Volume fraction]32.9 %Low36.3 - 47.1 %[facility] Hemoglobin (Bld) [Mass/Vol]10.3 g/dLLow11.9 - 15.1 g/dLBon [facility] Immature granulocytes (Bld) [#/Vol]0.04 10*3/uLBon OhiohealthImmature granulocytes/100 WBC (Bld)1 %Tpqs2GqpInova Fairfax HospitalInterpretation and review of laboratory resultsAbnormalInova Fairfax HospitalLymphocytes/100 WBC (Bld)12 %Low24 - 43 %[facility] HospitalLymphocytes/100 WBC (Bld)0.94 %Low [facility] CenterH (RBC) [Entitic mass]26.6 pg25.2 - 33.5 pgCJW Medical CenterHC (RBC) [Mass/Vol]31.3 g/dL28.4 - 34.8 g/dLBon [facility]MCV (RBC) [Entitic vol]85 fL82.6 - 102.9 fLInova Fairfax Hospital Monocytes/100 WBC (Bld)11 %3 - 12 %[facility] HospitalMonocytes/100 WBC (Bld)0.83 %[facility] HospitalNeutrophils/100 WBC (Bld)70 %High36 - 65 %[facility] HospitalNucleated RBC/100 WBC (Bld) [Ratio]0.3 %High0.0 per 100 WBC [facility] HospitalPlatelet mean volume (Bld) [Entitic vol]9.2 fL8.1 - 13.5 fLInova Fairfax HospitalPlatelets (Bld) [#/Vol]296 10*3/uLBon [facility]healthRBC (Bld) [#/Vol]3.87 10*6/uLLow3.95 - 5.11 m/uLInova [facility] Hospital Segmented neutrophils/100 WBC (Bld)5.66 %[facility] HospitalWBC other (Bld) [#/Vol]7.9Bon [facility] HospitalCBC with Diffon [id number]. Basophil0.08 k/uLNormal0.00-0.20MerMercy Health Fairfield Hospital HospitalComment on above:Performed By: #### CMPX, CDP #### [address] [place] [address] [employer] Supervisor: Cruz Mckenzie.Imm.Granulocyte0.04 k/uLNormal0.00-0.30[facility] Medical CenterComment on above:Performed By: #### CMPX, CDP #### [address] [place] [id number] [employer] Supervisor: Cruz Mckenzie.Neutrophil (Seg)5.66 k/uLNormal1.50-8.10[facility] Medical CenterComment on above:Performed By: #### CMPX, CDP #### [address] [place] [address] [employer] Supervisor: Apolinar Lemus MDBasophils/100 WBC (Bld)1 %Normal0-2[facility] Alger HospitalComment on above:Performed By: #### CMPX, CDP #### [address] [place] [address] [employer] Supervisor: Apolinar Lemus MDEosinophils (Bld) [#/Vol]0.39 10*3/uLNormal 0.00-0.44[facility] HospitalComment on above:Performed By: #### CMPX, CDP #### [address] [place] [address] [employer] Supervisor: Apolinar Lemus MDEosinophils/100 WBC (Bld)5 %High1-4MerMercy Health Fairfield Hospital HospitalComment on above:Performed By: #### CMPX, CDP #### [address] [place], [place] [address] [employer] Supervisor: Apolinar Lemus MDErythrocyte distribution width (RBC) [Ratio]19.4 % High11.8-14.4[facility] HospitalComment on above:Performed By: #### CMPX, CDP #### [address] [place] [address] [employer] Processing Supervisor: Apolinar Lemus MDHematocrit (Bld) [Volume fraction]32.9 %Low 36.3-47.1MercOhioHealth [facility] HospitalComment on above:Performed By: #### CMPX, CDP #### [address] [place] 02[address]83 [employer] Supervisor: Apolinar Lemus MDHemoglobin (Bld) [Mass/Vol]10.3 g/dLLow11.9-15.1 [facility] HospitalComment on above:Performed By: #### CMPX, CDP #### [address] [place] [address] [employer] Supervisor: Apolinar Lemus MDImmature granulocytes/100 WBC (Bld)1 %Jkpe3FuifgMagruder Hospital HospitalComment on above:Performed By: #### CMPX, CDP #### [address] [place] [address] [employer] Supervisor: Apolinar Lemus MDLymphocytes (Bld) [#/Vol]0.94 10*3/uLLow1.10-3.70 [facility] HospitalComment on above:Performed By: #### CMPX, CDP #### [address] [place] [address] [employer] Supervisor: Eden Mckenziemphocytes/100 WBC (Bld)12 %Gzu19-03Icvnz [facility] HospitalComment on above:Performed By: #### CMPX, CDP #### [address] [place] [address] [employer] Processing Supervisor: BUZZ MckenzieCH (RBC) [Entitic mass]26.6 jyCtgvnc11.2-33.5 [facility] HospitalComment on above:Performed By: #### CMPX, CDP #### [address] [place] [address] [employer] Supervisor: ELLA MckenzieC (RBC) [Mass/Vol]31.3 g/jZVfdade48.4-34.8[facility] HospitalComment on above:Performed By: #### CMPX, CDP #### [address] [place] [address] [employer] Processing Supervisor: BUZZ MckenzieCV (RBC) [Entitic vol]85.0 jCVhfomc99.6-102.9 [facility] HospitalComment on above:Performed By: #### CMPX, CDP #### [address] [place] [address] [employer] Processing Supervisor: BUZZ Mckenzieonocytes (Bld) [#/Vol]0.83 10*3/uLNormal0.10-1.20 [facility] Medical CenterComment on above:Performed By: #### CMPX, CDP #### [facility] [address] [place] [address] Dr. [place], [place] [id number] [employer] Supervisor: BUZZ Mckenzieonocytes/100 WBC (Bld)11 %Normal3-12[facility] Medical CenterComment on above:Performed By: #### CMPX, CDP #### [facility] [address] [place] [address] [place] [address] [employer] Supervisor: Yina Mckenzieophil (Seg)70 %Yrdi85-23CykmeCincinnati Children'S Hospital Medical Center Comment on above:Performed By: #### CMPX, CDP #### [address] [place], [place] 9992183 [employer] Supervisor: Apolinar Lemus MDNRBC Automated0.3 per 100 WBCHigh0.0[facility] Medical CenterComment on above:Performed By: #### CMPX, CDP #### [address] [place], [place] [address] ([address] [employer] Supervisor: ROJAS Mckenzielatelet mean volume (Bld) [Entitic vol]9.2 fL Normal8.1-13.5[facility] Medical CenterComment on above:Performed By: #### CMPX, CDP #### [facility] [address] [place] [address] [place] [address] [employer] Processing Supervisor: Apolinar Lemus MDPlatelets (Bld) [#/Vol]296 10*3/nZTirqbo692-116 [facility] Medical CenterComment on above:Performed By: #### CMPX, CDP #### [address] [place], [place] [id number] [employer] Supervisor: Apolinar Lemus MDRBC (Bld) [#/Vol]3.87 10*6/uLLow3.95-5.11[facility] HospitalComment on above:Performed By: #### CMPX, CDP #### [facility] [address] [place], [place] 0[address]83 [employer] Supervisor: RAZA Mckenzie (d) [#/Vol]7.9 10*3/uLNormal3.5-11.3[facility] HospitalComment on above:Performed By: #### CMPX, CDP #### [facility] [address] [place] [address] [employer] Processing Supervisor: Apolinar Lemus MDCT CHEST ABDOMEN PELVIS W CONTRASTon [id number] CHEST ABDOMEN PELVIS W CONTRASTEXAMINATION: CT OF [...] plaque along the aorta and its branches. 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 Aortic graft [...] by: Arben Villalpando MD 08/06/24 Final resultNormalMercy Natchaug Hospital Chest and Abdomen and Pelvis W [...] and L3. 14. Multilevel vacuum disc phenomena. [facility] RIS CONSOLIDATEDEXAMINATION: CT OF THE CHEST, [...] plaque along the aorta and its branches. 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 Aortic graft [...] pars defects noted at L1 and L2. [facility] Arben George MD - 08/06/2024 EXAMINATION: [...] plaque along the aorta and its branches. 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 Aortic graft [...] and L3. 14. Multilevel vacuum disc phenomena. [facility] HospitalRadiology Study observation (narrative)[facility] Chest and Abdomen and Pelvis W contrast IVOrdered By: Arben Villalpando on 77-18-3445Kag [facility] Work Phone: CT FOOT LEFT W CONTRASTon [id number] FOOT LEFT W CONTRASTEXAMINATION: CT OF THE [...] tissue gas. No focal intramuscular abnormality. Joint: Qvtu-jz-dgrtnylg tricompartmental osteoarthritis of the knee joint. No [...] Signed by: Geovanny Melo MD 08/06/24 Final resultNormalMerSaint Francis Hospital & Medical Center FOOT RIGHT W CONTRASTon [id number] FOOT RIGHT W CONTRASTEXAMINATION: CT OF THE [...] tissue gas. No focal intramuscular abnormality. Joint: Zktz-vj-jqexwais tricompartmental osteoarthritis of the knee joint. No [...] Signed by: Geovanny Melo MD 08/06/24 Final resultNormalMerSaint Francis Hospital & Medical Center Foot - left W contrast Atiya 08-06-2024 Radiology Study observation (narrative)[facility] Foot - right W contrast Atiya 70-38-6637Yogmiiray Study observation (narrative)[facility] HEAD WO CONTRASTon [id number] HEAD WO CONTRASTEXAMINATION: CT OF THE HEAD [...] by: Georgiana Peng MD 08/06/24 Final resultNormalMercy Natchaug Hospital Head WO contraston 15-52-1885Lh acute intracranial abnormality or calvarial fracture. [facility] RIS CONSOLIDATEDEXAMINATION: CT OF THE HEAD [...] the left forehead. No acute calvarial fracture. [facility] Georgiana Aguilar MD - 08/06/2024 EXAMINATION: [...] No acute intracranial abnormality or calvarial fracture. [facility] ProgrameterRadiology Study observation (narrative)[facility] IQ [facility] Head WO contrastOrdered By: Georgiana Peng on 60-99-2699Fol [facility] [employer] Work Phone: CT Lower leg - left W contrast Atiya 08-06-2024 Radiology Study observation (narrative)[facility] Lower leg - right W contrast Atiya 46-86-3043Zqditqcce Study observation (narrative)[facility] TIBIA FIBULA LEFT W CONTRASTon [id number] TIBIA FIBULA LEFT W CONTRASTEXAMINATION: CT OF [...] tissue gas. No focal intramuscular abnormality. Joint: Whtq-zy-uxiatkdz tricompartmental osteoarthritis of the knee joint. No [...] by: Geovanny Melo MD 08/06/24 Final resultNormalMercy Natchaug Hospital TIBIA FIBULA RIGHT W CONTRASTon 80-72-2635FY TIBIA FIBULA RIGHT W CONTRASTEXAMINATION: CT OF [...] tissue gas. No focal intramuscular abnormality. Joint: Kagm-ad-kamhzpvu tricompartmental osteoarthritis of the knee joint. No [...] or CT evidence of osteomyelitis. Interpreted by: eGovanny Melo MD Signed by: Geovanny Melo MD 08/06/24 Final resultNormalCincinnati Children'S Hospital Medical CenterComp Metabolic Pr/rfx MGon 08-06-2024 Albumin [Mass/Vol]3.4 g/dLLow3.5-5.2MHarrison Community HospitalComment on above: Performed By: #### CMPX, CDP #### [address] [place] [address]83 [employer] Processing Supervisor: Apolinar Lemus MDAlbumin/Glob Ratio1.0Giruds5.0-2.5[facility] Medical CenterComment on above:Performed By: #### CMPX, CDP #### [address] [place] [address]83 [employer] Processing Supervisor: Germania Mckenziekaline Phos95 U/OExxlog75-402DwtkbCincinnati Children'S Hospital Medical CenterComment on above:Performed By: #### CMPX, CDP #### [address] [place] [address] [employer] Processing Supervisor: Apolinar Lemus MDALT [Catalytic activity/Vol]11 U/DEqmbdu30-03PeqdlCincinnati Children'S Hospital Medical CenterComment on above:Performed By: #### CMPX, CDP #### [address] [place], [place] [address]3 [employer] Supervisor: Apolinar Lemus MDAnion gap [Moles/Vol]9 mmol/LNormal9-16[facility] Medical CenterComment on above:Performed By: #### CMPX, CDP #### [address] [place], [place] [address]683 [employer] Supervisor: Apolinar Lemus MDAST [Catalytic activity/Vol]21 U/JMawfso94-18NpdumCincinnati Children'S Hospital Medical CenterComment on above:Performed By: #### CMPX, CDP #### [address] [place], [place] [address]283 [employer] Supervisor: Apolinar Lemus MDBilirubin [Mass/Vol]mg/dLNormal0.00-1.20[facility] Medical CenterComment on above:Performed By: #### CMPX, CDP #### [address] [place], [place] 7475383 [employer] Processing Supervisor: Apolinar Lemus MDBUN/CRE Amete81Ogakio3-44Bouxj [facility] Comment on above:Performed By: #### CMPX, CDP #### [address] [place], [place] 3034483 [employer] Supervisor: Apolinar Lemus MDCalcium [Mass/Vol]8.2 mg/dLLow8.6-10.4[facility] Medical CenterComment on above:Performed By: #### CMPX, CDP #### [address] [place] [address] [employer] Processing Supervisor: ANNITA Mckenziehloride [Moles/Vol]102 mmol/ODgybvd58-867IkuvrCincinnati Children'S Hospital Medical CenterComment on above:Performed By: #### CMPX, CDP #### [address] [place], [place] 7622383 [employer] Supervisor: Apolinar Lemus MDCO2 [Moles/Vol]23 mmol/YMtrkmb75-14PtvfdCincinnati Children'S Hospital Medical CenterComment on above:Performed By: #### CMPX, CDP #### [address] [place] [address] [employer] Supervisor: ANNITA Mckenziereatinine [Mass/Vol]1.0 mg/dLHigh0.50-0.90[facility] Medical CenterComment on above:Performed By: #### CMPX, CDP #### [address] [place] [address] [employer] Supervisor: Apolinar Lemus MDGFR/1.73 sq M.predicted among non-blacks MDRD (S/P/Bld) [Vol rate/Area]67 mL/min/{1.73_m2}Normal>60[facility] Comment on above:Result Comment: These results are [...] tubular secretion.Performed By: #### CMPX, CDP #### [address] [place] [address] [employer] Processing Supervisor: Apolinar Lemus MDGlucose [Mass/Vol]141 mg/wOJprh96-47FhszvHarrison Community HospitalComment on above:Performed By: #### CMPX, CDP #### [address] [place] [address] [employer] Processing Supervisor: ROJAS Mckenzieotassium [Moles/Vol]3.6 mmol/LLow3.7-5.3MHarrison Community HospitalComment on above:Performed By: #### CMPX, CDP #### [address] [place] [address] Phosph[employer] Processing Supervisor: Apolinar Lemus MDProtein [Mass/Vol]5.8 g/dLLow6.6-8.7[facility] Medical CenterComment on above:Performed By: #### CMPX, CDP #### [facility] [address] [place] [address] [place] [address] [employer] Processing Supervisor: ADÁN Mckenzieodium [Moles/Vol]134 mmol/FTaa107-591ZndhpCincinnati Children'S Hospital Medical CenterComment on above:Performed By: #### CMPX, CDP #### [facility] [address] [place] [address] [place] [address] [employer] Processing Supervisor: Apolinar Lemus MDUrea nitrogen [Mass/Vol]16 mg/dLNormal8-23[facility] Medical CenterComment on above:Performed By: #### CMPX, CDP #### [address] [place] [address] Phosph[employer] Processing Supervisor: ANNITA Mckenzieomprehensive Metabolic Panel w/ Reflex to MGon 30-24-3127Lqrierh [Mass/Vol]3.4 g/dLLow3.5 - 5.2 g/dLBon [facility] Albumin/Globulin [Mass ratio]1.4 {ratio}1.0 - 2.5Bon [facility]Our [facility] HealthALP [Catalytic activity/Vol]95 U/L35 - 104 U/LBon Secours [facility] HealthALT [Catalytic activity/Vol]11 U/L10 - 35 U/LBon Secours Cherrington Hospitaly HealthAnion gap [Moles/Vol]9 mmol/L9 - 16 mmol/LBon Secours Cherrington Hospitaly HealthAST [Catalytic activity/Vol]21 U/L10 - 35 U/LBon Secours Cherrington Hospitaly HealthBilirubin [Mass/Vol]mg/dL0.00 - 1.20 mg/dLBon Secours Cherrington Hospitaly HealthCalcium [Mass/Vol]8.2 mg/dLLow8.6 - 10.4 mg/dLBon Secours Cherrington Hospitaly HealthChloride [Moles/Vol]102 mmol/L98 - 107 mmol/LBon Secours Cherrington Hospitaly HealthCO2 [Moles/Vol]23 mmol/L20 - 31 mmol/LBon Secours Mercy HealthCreatinine [Mass/Vol]1.0 mg/dLHigh0.50 - 0.90 mg/dLBon [facility]healthEst, Glom Filt Rate67- PINFBon OhiohealthComment on above: These results are not intended [...] that affects renal tubular secretion. Glucose [Mass/Vol]141 mg/nWKfuh96 - 99 mg/dLBon [facility] Interpretation and review of laboratory resultsAbnormalBon [facility] Potassium [Moles/Vol]3.6 mmol/LLow3.7 - 5.3 mmol/LBon [facility] Protein [Mass/Vol]5.8 g/dLLow6.6 - 8.7 g/dLBon [facility]healthSodium [Moles/Vol]134 mmol/ANan881 - 145 mmol/LBon [facility]healthUrea nitrogen [Mass/Vol]16 mg/dL8 - 23 mg/dLBon OhiohealthUrea nitrogen/Creatinine [Mass ratio]16 mg/mg9 - 20Bon [facility] HospitalGram Stainon 04-45-0460Lgghwpplsua observation Gram stain Nom (Unsp spec)Specimen Description .WOUND Special Requests Site: Foot Direct Exam < 10 EPITHELIAL CELLS/LPF <10 NEUTROPHILS/LPF MIXED BACTERIAL MORPHOTYPES SEEN ON GRAM STAIN. Report Status FINAL 5AbnormalCincinnati Children'S Hospital Medical CenterComment on above: Performed By: #### GRACIE UAX #### [facility] [address] [place] [address] Phosph[employer] Processing Supervisor: Apolinar Lemus MDHemoglobin A1Con 53-57-0644Iojifat glucose Estimated from glycated hemoglobin (Bld) [Mass/Vol]160 mg/dLBon [facility]healthComment on above:The ADA and AACC recommend providing the estimated average glucose result to permit better patient understanding of their HBA1c result. HbA1c (Bld) [Mass fraction]7.2 %High4.0 - 6.0 %[facility] Interpretation and review of laboratory resultsAbnormSentara Martha Jefferson HospitalGlucose [Mass/Vol]160 mg/dLNoProtestant Hospital Comment on above:Result Comment: The ADA and AACC recommend providing the estimated average glucose result to permit better patient understanding of their HBA1c result.Performed By: #### GLYHGB #### [facility] [employer] [address] [place] [address] Phosph[employer] Processing Supervisor: Mark Liriano MDHbA1c (Bld) [Mass fraction]7.2 %High4.0-6.0[facility] Medical CenterComment on above:Performed By: #### GLYHGB #### [facility] [address] [place] [address] Phosph[employer] Processing Supervisor: Mark Liriano MDLactate, Sepsison 02-61-4506Yjaakry (BldV) [Moles/Vol]0.7 mmol/L0.5 - 1.9 mmol/LBon [facility] HospitalLactic Acid, Sepsis0.7 mmol/LNormal0.5-1.9[facility] Medical CenterComment on above:Performed By: #### CMPX, CDP #### [facility] [address] [place] [place] [address] [employer] Processing Supervisor: Apolinar Lemus MDNo Panel Informationon 31-04-2285OX right tibia/fibula and foot: 1. No acute [...] tissue gas. No focal intramuscular abnormality. Joint: Ryls-zz-xhbansle tricompartmental osteoarthritis of the knee joint. No [...] tissue gas. No focal intramuscular abnormality. Joint: Eaku-nr-brqghldr tricompartmental osteoarthritis of the knee joint. No [...] acute fracture or CT evidence of osteomyelitis. [facility] Digital CaddiesNo Panel InformationOrdered By: Geovanny Melo on 08-06-2024 [facility] [employer] Work Phone: Procalcitoninon 14-20-3659Chvriofzxyspni and review of laboratory resultsAbnormalInova Fairfax HospitalProcalcitonin [Mass/Vol]0.14 ng/mLHigh0.00 - 0.09 ng/mLVCU Medical Center on above: Suspected Sepsis: <0.50 ng/mL Low [...] entered into the Change in Procalcitonin Calculator (www.xjzuhi-xls-rxdqxfyrit.com) to determine the patient's Mortality Risk Prognosis In healthy neonates, plasma Procalcitonin (PCT) concentrations increase gradually after , reaching peak values at about 24 hours of age then decrease to normal values below 0.5 ng/mL by 48-72 hours of age. [facility] HospitalProcalcitonin0.14 ng/mLHigh0.00-0.09[facility] on above:Result Comment: Suspected Sepsis: <0.50 [...] entered into the Change in Procalcitonin Calculator (www.hejlwk-clw-ujndtoyoip.com) to determine the patient's Mortality Risk Prognosis In healthy neonates, plasma Procalcitonin (PCT) concentrations increase gradually after , reaching peak values at about 24 hours of age then decrease to normal values below 0.5 ng/mL by 48-72 hours of age.Performed By: #### CMPX, CDP #### [facility] [address] [place] [address] Phosph[employer] Processing Supervisor: SERENE Mckenzieound Gram stainon 50-16-8849Ofdctmavpcgnva and review of laboratory resultsAbnormalInova Fairfax HospitalMicroorganism or agent identified Nom (Unsp spec)< 10 EPITHELIAL CELLS/LPFAbnormalInova Fairfax HospitalMicroorganism or agent identified Nom (Unsp spec)<10 NEUTROPHILS/LPF AbnormalSouthern Virginia Regional Medical Centerroorganism or agent identified Nom (Unsp spec)MIXED BACTERIAL MORPHOTYPES SEEN ON GRAM STAIN.[facility] Service comment (Unsp spec) [Interp]Site: [facility] HospitalSpecimen Description.[facility] MontgomeryCT ABDOMEN AND PELVIS W CONTon 88-01-8890DR ABDOMEN AND PELVIS W CONTNoParkview Health Bryan HospitalCT BRAIN WO CONTon 09-84-2238GN BRAIN WO CONTNormMercy Health St. Charles HospitalCT CERVICAL SPINE WO CONTon 85-93-8737YL CERVICAL SPINE WO CONTNormal [facility] CenterCT CHEST W CONTon 23-30-3676ML CHEST W CONTNormal [facility] CenterXR KNEE RT 3 VWSon 16-44-6194NG KNEE RT 3 VWSNoClermont County HospitalXR TIBIA FIBULA RT MIN 2 VWSon 32-16-4166HL TIBIA FIBULA RT MIN 2 VWSXR TIBIA FIBULA RT MIN 2 VWS RIGHT TIBIA AND FIBULA 2 VIEW COMPARISON: HISTORY: . fall from bed, R lower leg pain IMPRESSION: No acute fracture or dislocation. Finalized by Ulises Carter MD on 07/25/2024 2:02 AMNormalProPeterson Regional Medical Center AND AUTO DIFFon 77-68-0934YYEICBNJ BASOPHIL0.3 X10E9/LHigh0.0-0.2 ProMAnderson SanatoriumComment on above:Performed By: #### 2639-3, 2156-08, CBCA, 26992-9, PINR, CMP ####[facility] ([id number])[address] [place] [address] 70698DXMGAANK NEUTROPHIL8.3 X10E9/LHigh 1.5-6.6ProTexas Children'S Hospital The WoodlandsComment on above:Performed By: #### 2639-3, 2156-08, CBCA, 30226-4, PINR, CMP ####[facility] ([id number])[address] [place] [address] 57222Qgmixzpuo/100 WBC (Bld)2.5 % NormalUpper Valley Medical CenterComment on above:Performed By: #### 2639-3, 2156-08, CBCA, 07503-4, PINR, CMP ####[facility] ([id number])[address] [place] [address] 14244Ptubeboevia (Bld) [#/Vol]0.5 10*3/uLHigh0.0-0.4[facility] Medical CenterComment on above:Performed By: #### 2639-3, 2156-08, CBCA, 34412-6, PINR, CMP ####[facility] ([id number])[address] [place] [address] 90107Btmzimyfxsh/100 WBC (Bld)4.7 %ProMedica Flower HospitalComment on above:Performed By: #### 2639-3, 6, CBCA, 78379-7, PINR, CMP ####[facility] ([id number])[address] [place] [address] 62457Qsoleishvnt distribution width (RBC) [Ratio]20.8 %High11.5-15.0[facility] Comment on above:Performed By: #### 2639-3, 6, CBCA, 26333-7, PINR, CMP ####[facility] ([id number])[address] [place] [address] 48934Xszlkjnkaf (Bld) [Volume fraction]34.8 %Sav59-11OmiLfiopgTexas Children'S Hospital The WoodlandsComment on above:Performed By: #### 2639-3, 2156-08, CBCA, 51110- 9, PINR, CMP ####[facility] ([id number])[address] [place] [address] 93791Ujfvslshhc (Bld) [Mass/Vol]11.4 g/dLLow11.7-15.5 [facility] City HospitaledicOjai Valley Community HospitalComment on above:Performed By: #### 2639-3, 2156-08, CBCA, 96838-9, PINR, CMP ####[facility] ([id number])[address] [place] [address] 43168Xsehphprqcm (Bld) [#/Vol]1.5 10*3/uL Normal1.0-3.5ProMedica Scripps Memorial HospitalComment on above:Performed By: #### 2639- 3, 2156-08, CBCA, 18230-3, PINR, CMP ####[facility] ([id number])[address] [place] [address] 22031Horhwffaiiz/100 WBC (Bld) 13.2 %NormalUpper Valley Medical CenterComment on above:Performed By: #### 2639- 3, 2156-08, CBCA, 61370-5, PINR, CMP ####[facility] ([id number])[address] [place] [address] 54348MZU (RBC) [Entitic mass] 27.2 yfPudqye04-82ZrqOkkoqlTexas Children'S Hospital The WoodlandsComment on above:Performed By: #### 2639-3, 2156-08, CBCA, 51059-5, PINR, CMP ####[facility] ([id number])[address] [place] [address] 52311BIIP (RBC) [Mass/Vol]32.9 g/lQVeydbd68-92CdkTqskddTexas Children'S Hospital The WoodlandsComment on above: Performed By: #### 2639-3, 6, CBCA, 28700-6, PINR, CMP ####[facility] ([id number])[address] [place] [address] 14831WTL (RBC) [Entitic vol]83 pRYogdyz26-478OkbLtxtqy Fremont HospitalComment on above: Performed By: #### 2639-3, 2156-08, CBCA, 18383-2, PINR, CMP ####[facility] ([id number])[address] [place] [address] 17331 Monocytes (Bld) [#/Vol]0.9 10*3/uLNormal0-0.9Upper Valley Medical CenterComment on above:Performed By: #### 2639-3, 2156-08, CBCA, 01684-7, PINR, CMP ####[facility] ([id number])[address] [place] [address] 88285Naiqfdwcc/100 WBC (Bld)8.2 %NormalProTexas Children'S Hospital The WoodlandsComment on above:Performed By: #### 2639-3, 2156-08, CBCA, 46683-5, PINR, CMP ####[facility] ([id number])[address] [place] [address] 68557Zwpocuegrcg/100 WBC (Bld)71.4 %NormalProTexas Children'S Hospital The WoodlandsComment on above:Performed By: #### 2639-3, 6, CBCA, 33604-3, PINR, CMP ####[facility] ([id number])[address] [place] [address] 59451Blaqjzoi mean volume (Bld) [Entitic vol]6.8 fLLow7-12ProMedica Scripps Memorial HospitalComment on above:Performed By: #### 2639-3, 2156-08, CBCA, 31760-2, PINR, CMP ####[facility] ([id number])[address] [place] [address] 52237Liysurbkv (Bld) [#/Vol]465 10*3/zYBtfo942-311YivHdmutfTexas Children'S Hospital The WoodlandsComment on above:Performed By: #### 2639-3, 2156-08, CBCA, 48062- 9, PINR, CMP ####[facility] ([id number])[address] [place] [address] 41931GAD COUNT4.20 X10E12/LNormal3.80-5.20Upper Valley Medical CenterComment on above:Performed By: #### 2639-3, 2156-08, CBCA, 83700- 9, PINR, CMP ####[facility] ([id number])[address] [place] [address] 07979IKH (Bld) [#/Vol]11.6 10*3/uLHigh4.0-11.0[facility] Valley Medical CenterComment on above:Performed By: #### 2639-3, 2156-08, CBCA, 69651- 9, PINR, CMP ####[facility] ([id number])[address] [place] [address] 74083EU [Catalytic activity/Vol]on 06-78-6654YWP35 U/L Ljpsnh84-422DbaIqviwxTexas Children'S Hospital The WoodlandsComment on above:Performed By: #### 2639- 3, 2157-6, CBCA, 37739-9, PINR, CMP ####[facility] ([id number])[address] [place] [address] 00901QWGBAVHJQNAVR METABOLIC PANELon 72-54-3948Ebvytrp [Mass/Vol]3.2 g/dLNormal3.2-5.3ProMedica Scripp[facility] Memorial HospitalComment on above:Performed By: #### 2639-3, 2156-6, CBCA, 79390-4, PINR, CMP ####[facility] ([id number])[address] [place] [address] 05561BCY [Catalytic activity/Vol]89 U/FVyubtt63-906ThpDccgzqUpper Valley Medical CenterComment on above:Performed By: #### 2639-3, 2156-6, CBCA, 19056- 9, PINR, CMP ####[facility] ([id number])[address] [place] [address] 10168KMD [Catalytic activity/Vol]15 U/LNormal0-31 [facility] CenterComment on above:Performed By: #### 2639-3, 6, CBCA, 97234-3, PINR, CMP ####[facility] ([id number])[address] [place] [address] 55822Wfevo gap [Moles/Vol]9 mmol/LNormal5-15 [facility] CenterComment on above:Performed By: #### 2639-3, 2156-6, CBCA, 10363-6, PINR, CMP ####[facility] ([id number])[address] [place] [address] 21676NSU [Catalytic activity/Vol]12 U/L Normal0-41Upper Valley Medical CenterComment on above:Performed By: #### 2639-3, 2156-6, CBCA, 69265-4, PINR, CMP ####[facility] ([id number])[address] [place] [address] 56628Tjmvnozla [Mass/Vol]0.6 mg/dL Normal0.3-1.2PHolzer HospitalComment on above:Performed By: #### 2639- 3, 6, CBCA, 11984-4, PINR, CMP ####[facility] ([id number])[address] [place] [address] 81097Uvvkaed [Mass/Vol]8.9 mg/dL Normal8.5-10.5PHolzer HospitalComment on above:Performed By: #### 2639-3, 2156-08, CBCA, 79412-0, PINR, CMP ####[facility] ([id number])[address] [place] [address] 71142Ycckczht [Moles/Vol]101 mmol/WOerhey85-009NflMophsmTexas Children'S Hospital The WoodlandsComment on above: Performed By: #### 2639-3, 2156-08, CBCA, 07956-7, PINR, CMP ####[facility] ([id number])[address] [place] [address] 53547OM4 [Moles/Vol]24 mmol/CEolgdl71-44HogTfbdvbHolzer HospitalComment on above: Performed By: #### 2639-3, 2156-08, CBCA, 71136-0, PINR, CMP ####[facility] ([id number])[address] [place] [address] 43707 Creatinine [Mass/Vol]0.98 mg/dLNormal0.40-1.00ProTexas Children'S Hospital The WoodlandsComment on above:Result Comment: METHOD TRACEABLE TO IDMS STANDARDPerformed By: #### 2639-3, 6, CBCA, 69329-2, PINR, CMP ####[facility] ([id number])[address] [place] [address] 65483BBK/1.73 sq M.predicted among non-blacks MDRD (S/P/Bld) [Vol rate/Area]64 mL/min/{1.73_m2} Normal>59ProTexas Children'S Hospital The WoodlandsComment on above:Result Comment: Reported eGFR is based on theCKD-EPI 2020 equation that doesnot use a race coefficient. Performed By: #### 2639-3, 2156-08, CBCA, 63165-8, PINR, CMP ####[facility] ([id number])[address] [place] [address] 93340Xgnkyoj [Mass/Vol]96 mg/zUNribvr29-48LhhTkdlmbTexas Children'S Hospital The WoodlandsComment on above: Performed By: #### 2639-3, 2156-08, CBCA, 72287-8, PINR, CMP ####[facility] ([id number])[address] [place] [address] 27168 Potassium [Moles/Vol]3.5 mmol/LNormal3.5-5.0ProTexas Children'S Hospital The WoodlandsComment on above:Performed By: #### 2639-3, 2156-08, CBCA, 24031-2, PINR, CMP ####[facility] ([id number])[address] [place] [address] 75850Euthoij [Mass/Vol]6.5 g/dLNormal6.0-8.0ProTexas Children'S Hospital The WoodlandsComment on above:Performed By: #### 9-3, 2156-08, CBCA, 63123-1, PINR, CMP ####[facility] ([id number])[address] [place] [address] 14341Qwampt [Moles/Vol]134 mmol/VHjoprf688-087IcbJxznxi Fremont HospitalComment on above:Performed By: #### 2639-3, 2156-08, CBCA, 00625-3, PINR, CMP ####[facility] ([id number])[address] [place] [address] 74550Hfjp nitrogen [Mass/Vol]12 mg/dLNormal5-27ProTexas Children'S Hospital The WoodlandsComment on above:Performed By: #### 2639-3, 2156-6, CBCA, 88970-7, PINR, CMP ####[facility] ([id number])[address] [place] [address] 75560Trzfjeeez [Mass/Vol]on 74-87-2217UQGDN HTMUITIFA40.7 ng/mL Pngbbq36.3-65.8ProTexas Children'S Hospital The WoodlandsComment on above:Performed By: #### 2639-3, 2156-6, CBCA, 16313-1, PINR, CMP ####[facility] ([id number])[address] [place] [address] 10452HXOZMAD AND INRon 04-47-0231IOC Coag (PPP) [Relative time]1.0 {INR}Normal0.9-1.2PHolzer HospitalComaspirus ontonagon hospital on above:Performed By: #### 2639-3, 6, CBCA, 04865-3, PINR, CMP ####[facility] ([id number])[address] [place] [address] 17856RA Coag (PPP) [Time]11.5 sNormal9.8-13.2PHolzer HospitalComaspirus ontonagon hospital on above:Result Comment: NEW REFERENCE RANGEPerformed By: #### 2639-3, 2156-6, CBCA, 87236-3, PINR, CMP ####[facility] ([id number])[address] [place] [address] 38543lYLO Coag (PPP) [Time]on 42-82-5471pAPW Coag (Bld) [Time]31 xOwgnyl08-77TwtQykawjTexas Children'S Hospital The WoodlandsComaspirus ontonagon hospital on above:Result Comment: NEW REFERENCE RANGEPerformed By: #### 2639-3, 2156-6, CBCA, 35586-3, PINR, CMP ####[facility] ([id number])[address] [place] [address], [place] [address]JSY AND AUTO DIFF on 78-64-5516ZBWUKVIN BASOPHIL0.0 X10E9/LNormal0.0-0.2[facility] Hospital[facility] Comment on above:Performed By: #### 50225-3, CMP, CBCA ####[facility] ([id number])[address] [place] [address] 59276JGCYYXAQ ICBAUHIFUS14.7 X10E9/LHigh1.5-6.6ProTexas Children'S Hospital The WoodlandsComment on above: Performed By: #### 04925-2, CMP, CBCA ####[facility] ([id number])[address] [place] [address] 21462Fiopforev/100 WBC (Bld)0.1 %NormalProTexas Children'S Hospital The WoodlandsComment on above:Performed By: #### 50243-2, CMP, CBCA ####[facility] ([id number])[address] [place] [address] 17332Cgocquxpzyf (Bld) [#/Vol]0.0 10*3/uLNormal 0.0-0.4Upper Valley Medical CenterComment on above:Performed By: #### 31138-9, CMP, CBCA ####[facility] ([id number])[address] [place] [address] 07410Rkdbakchmzh/100 WBC (Bld)0.0 %NormalProTexas Children'S Hospital The WoodlandsComment on above:Performed By: #### 06802-5, CMP, CBCA ####[facility] ([id number])[address] [place] [address] 50062Zedmknzczvh distribution width (RBC) [Ratio]20.8 %High11.5-15.0ProTexas Children'S Hospital The WoodlandsComment on above:Performed By: #### 27285-3, CMP, CBCA ####[facility] ([id number])[address] [place] [address] 34344Bvyiarraup (Bld) [Volume fraction]36.0 %Mkekgy95-40 ProMAnderson SanatoriumComment on above:Performed By: #### 14358-4, CMP, CBCA ####[facility] ([id number])[address] [place] [address] 67279Adfbeejzcz (Bld) [Mass/Vol]11.6 g/dLLow11.7-15.5PHolzer HospitalComment on above:Performed By: #### 69620-9, CMP, CBCA ####[facility] ([id number])[address] [place] [address] 65698Mdavhprnpts (Bld) [#/Vol]0.4 10*3/uLLow1.0-3.5PHolzer HospitalComment on above:Performed By: #### 06529-6, CMP, CBCA ####[facility] ([id number])[address] [place] [address] 86110Hkiaqdchkjg/100 WBC (Bld)3.1 %NormalUpper Valley Medical CenterComment on above:Performed By: #### 92594-3, CMP, CBCA ####[facility] ([id number])[address] [place] [address] 99762URV (RBC) [Entitic mass]26.9 mjEyy99-61FhlGvolkaTexas Children'S Hospital The WoodlandsComment on above:Performed By: #### 15467-0, CMP, CBCA ####[facility] ([id number])[address] [place] [address] 37838HXUE (RBC) [Mass/Vol]32.3 g/nKAqkykf79-01KfxUolkhfTexas Children'S Hospital The WoodlandsComment on above: Performed By: #### 75672-1, CMP, CBCA ####[facility] ([id number])[address] [place] [address], [place] [address]KMB (RBC) [Entitic vol]83 uTJgpnec51-127SdcIxnuktUpper Valley Medical CenterComment on above: Performed By: #### 96323-6, CMP, CBCA ####[facility] ([id number])[address] [place] [address] 46928Zxumqtqra (Bld) [#/Vol]0.2 10*3/uLNormal0-0.9[facility] Medical CenterComment on above: Performed By: #### 74209-2, CMP, CBCA ####[facility] ([id number])[address] [place] [address] 95392Wuqxiciey/100 WBC (Bld)1.4 %NormalUpper Valley Medical CenterComment on above:Performed By: #### 98641-9, CMP, CBCA ####[facility] ([id number])[address] [place] [address] [place] [address]Xrljjwsgyam/100 WBC (Bld)95.4 %Normal [facility] Medical CenterComment on above:Performed By: #### 48577-1, CMP, CBCA ####[facility] ([id number])[address] [place] [address] 72957Ikeldsnp mean volume (Bld) [Entitic vol]7.0 fLNormal7-12 [facility] CenterComment on above:Performed By: #### 27196-3, CMP, CBCA ####[facility] ([id number])[address] [place] [address] [place] [address]Xeqfvwkfe (Bld) [#/Vol]295 10*3/tFOlxmkb308-542FknAvcsei [facility]remont HospitalComment on above:Performed By: #### 47652-0, CMP, CBCA ####[facility] ([id number])[address] [place] [address] 54227VWI COUNT4.32 X10E12/LNormal3.80-5.20ProTexas Children'S Hospital The WoodlandsComment on above:Performed By: #### 82612-9, CMP, CBCA ####[facility] ([id number])[address] [place] [address] 91503WCZ (Bld) [#/Vol]14.4 10*3/uLHigh4.0-11.0ProTexas Children'S Hospital The WoodlandsComment on above:Performed By: #### 31374-8, CMP, CBCA ####[facility] ([id number])[address] [place] [address] 07823SFUOUJZZGYZIN METABOLIC PANELon 20-02-2527Iaxmtth [Mass/Vol]2.7 g/dLLow3.2-5.3PHolzer HospitalComment on above:Performed By: #### 90176-6, CMP, CBCA ####[facility] ([id number])[address] [place] [address] 69796RBX [Catalytic activity/Vol]84 U/QKcznkp95-157LleAwqzupUpper Valley Medical CenterComment on above:Performed By: #### 22664-0, CMP, CBCA ####[facility] ([id number])[address] [place] [address] 81173MXW [Catalytic activity/Vol]10 U/LNormal0-31PHolzer HospitalComment on above:Performed By: #### 65424-6, CMP, CBCA ####[facility] ([id number])[address] [place] [address] 99873Ntjae gap [Moles/Vol]12 mmol/LNormal5-15ProTexas Children'S Hospital The WoodlandsComment on above:Performed By: #### 91620-5, CMP, CBCA ####[facility] ([id number])[address], [place], [place] [address]SRH [Catalytic activity/Vol]12 U/LNormal0-41[facility] Comment on above:Performed By: #### 61370-2, CMP, CBCA ####[facility] ([id number])[address] [place] [address], [place] [address] Bilirubin [Mass/Vol]0.3 mg/dLNormal0.3-1.2PHolzer HospitalComment on above:Performed By: #### 37933-5, CMP, CBCA ####[facility] ([id number])[address] [place] [address], [place] [address]Ppmvhis [Mass/Vol]8.1 mg/dLLow8.5-10.5PHolzer HospitalComment on above: Performed By: #### 30405-8, CMP, CBCA ####[facility] ([id number])[address] [place] [address], [place] [address]Udzgytum [Moles/Vol]99 mmol/SKaqiee34-697KxoMtupzuTexas Children'S Hospital The WoodlandsComment on above: Performed By: #### 82532-3, CMP, CBCA ####[facility] ([id number])[address] [place] [address], [place] [address]RL2 [Moles/Vol]24 mmol/EAnfgpm77-31QjzKegrbiHolzer HospitalComment on above:Performed By: #### 81273-6, CMP, CBCA ####[facility] ([id number])[address] [place] [address], [place] [address]Ocffmkhsxj [Mass/Vol]0.74 mg/dLNormal 0.40-1.00[facility] Medical CenterComment on above:Result Comment: METHOD TRACEABLE TO IDMS STANDARDPerformed By: #### 56766-9, CMP, CBCA ####[facility] ([id number])[address] [place] [address], [place] [address]nVAN (CKD-EPI) NON-RACE DEPENDENT>90Normal>59ProTexas Children'S Hospital [facility] Comment on above:Result Comment: Reported eGFR is based on theCKD-EPI 2020 equation that doesnot use a race coefficient.Performed By: #### 29019-8YULISA, PRIYANK ####[facility] ([id number])[address] [place] [address], [place] [address]Smrbogz [Mass/Vol]208 mg/yEFrws04-48MunYtnxvdTexas Children'S Hospital The WoodlandsComment on above:Performed By: #### 31798-6, CMP, CBCA ####[facility] ([id number])[address] [place] [address] 27606Heoadtvmu [Moles/Vol]4.3 mmol/LNormal3.5-5.0[facility] Comment on above:Performed By: #### 90101-5YULISA, PRIYANK ####[facility] ([id number])[address] [place] [address] 52893Crdphqw [Mass/Vol]6.1 g/dLNormal6.0-8.0ProTexas Children'S Hospital The WoodlandsComment on above: Performed By: #### 30851-1YULISA, CBCA ####[facility] ([id number])[address] [place] [address] 78875Wtjdxq [Moles/Vol]135 mmol/IDladhb188-819AbhYvqzeb [facility]ont HospitalComment on above: Performed By: #### 09076-9, YULISA, CBCA ####[facility] ([id number])[address] [place] [address] 88428Hovv nitrogen [Mass/Vol]23 mg/dLNormal5-27ProTexas Children'S Hospital The WoodlandsComment on above:Performed By: #### 58265-0, YULISA, CBCA ####[facility] ([id number])[address] [place] [address], [place] [address]NYK [Mass/Vol]on 07-16-2024 REACTIVE PROTEIN2.9 mg/dLHigh0.000-0.744PHolzer HospitalComment on above: Performed By: #### 1987-07, 4091-05 ####[facility] ([id number])[address] [place] [address] 63771Ipnohiu Glucometer (BldC) [Mass/Vol]on 27-00-9089Pvhmmvp [Mass/Vol]231 mg/hDTrgv61-77NdnDycmkvTexas Children'S Hospital The WoodlandsGlucose [Mass/Vol]219 mg/pOAqsg10-52AgeBlcupkTexas Children'S Hospital The WoodlandsMAGNESIUM on 26-09-4265Xdxkcmvgz [Mass/Vol]2.3 mg/dLNormal1.8-2.6ProTexas Children'S Hospital The WoodlandsComment on above:Performed By: #### , CMP, CBCA ####[facility] ([id number])[address] [place] [address] 80431Aeyhltowsj trough [Mass/Vol]on 49-56-3991VDXDFGXPUM VLFUFN95.6 ug/mLNormal 5.0-20.0ProTexas Children'S Hospital The WoodlandsComment on above:Performed By: #### 1987-07, 4091-05 ####[facility] ([id number])[address] [place] [address] 015[address]YUT AND AUTO DIFFon 33-80-5576FQGMCHST BASOPHIL0.0 X10E9/L Normal0.0-0.2PHolzer HospitalComment on above:Performed By: #### , , CBCA, CMP, 65569-4 ####[facility] ([id number])[address] [place] [address] 48266YOQGXHOW ORGGGHUMAD14.4 X10E9/L High1.5-6.6ProTexas Children'S Hospital The WoodlandsComment on above:Performed By: #### 1987-07, , CBCA, CMP, 96085-3 ####[facility] ([id number])[address] [place] [address] 74964Oioagwkqy/100 WBC (Bld)0.2 %Normal [facility] CenterComment on above:Performed By: #### 1987-07, , CBCA, CMP, 82037-1 ####[facility] ([id number])[address] [place] [address] 88219Gvgfatrsjbs (Bld) [#/Vol]0.0 10*3/uLNormal 0.0-0.4[facility] Medical CenterComment on above:Performed By: #### 1987-07, , CBCA, CMP, 08258-8 ####[facility] ([id number])[address] [place] [address] [phone]/100 WBC (Bld)0.0 %Normal [facility] CenterComment on above:Performed By: #### 1987-07, , CBCA, CMP, 57335-3 ####[facility] ([id number])[address] [place] [address] 56531Jsoqphqjcyj distribution width (RBC) [Ratio] 20.1 %High11.5-15.0ProTexas Children'S Hospital The WoodlandsComment on above:Performed By: #### 1987-07, , CBCA, CMP, 69658-3 ####[facility] ([id number])[address] [place] [address] 70638Jgjtcdbffi (Bld) [Volume fraction]34.4 %Bir33-47IstPcocgsTexas Children'S Hospital The WoodlandsComment on above: Performed By: #### 1987-07, , CBCA, CMP, 32699-2 ####[facility] ([id number])[address] [place] [address] [phone] Hemoglobin (Bld) [Mass/Vol]11.0 g/dLLow11.7-15.5PHol[facility] Hospital Comment on above:Performed By: #### 1987-07, , CBCA, CMP, 77345-7 ####[facility] ([id number])[address] [place] [address] [phone] (Bld) [#/Vol]0.4 10*3/uLLow1.0-3.5PHolzer HospitalComment on above:Performed By: #### 1987-07, , CBCA, CMP, 31781-0 ####[facility] ([id number])[address] [place] [address] 11088Beazytdxxqt/100 WBC (Bld)2.1 %NormalProTexas Children'S Hospital The WoodlandsComment on above:Performed By: #### 1987-07, , CBCA, CMP, 53890-9 ####[facility] ([id number])[address] [place] [address] 53318TYB (RBC) [Entitic mass]26.9 gpKnp22-17VmxAtfdwiTexas Children'S Hospital The WoodlandsComment on above:Performed By: #### 1987-07, , CBCA, CMP, 60837-8 ####[facility] ([id number])[address] [place] [address] [phone] (RBC) [Mass/Vol]31.9 g/sTWvt29-88NaaGrcylsTexas Children'S Hospital The WoodlandsComment on above:Performed By: #### 1987-07, , CBCA, CMP, 75924-7 ####[facility] ([id number])[address] [place] [address] 35610FNU (RBC) [Entitic vol]84 gUZcmmlu57-500ZixHytfft Fremont HospitalComment on above:Performed By: #### 1987-07, , CBCA, CMP, 82562-4 ####[facility] ([id number])[address] [place] [address] [phone] (Bld) [#/Vol]0.3 10*3/uLNormal0-0.9ProTexas Children'S Hospital The WoodlandsComment on above:Performed By: #### 1987-07, , CBCA, CMP, 52334-8 ####[facility] ([id number])[address] [place] [address] [phone]/100 WBC (Bld)1.6 %NormalProTexas Children'S Hospital The WoodlandsComment on above:Performed By: #### 1987-07, , CBCA, CMP, 86189-0 ####[facility] ([id number])[address] [place] [address] [phone]/100 WBC (Bld)96.1 %NormalProTexas Children'S Hospital The WoodlandsComment on above:Performed By: #### 1987-07, , CBCA, CMP, 96862-7 ####[facility] ([id number])[address] [place] [address] [phone] mean volume (Bld) [Entitic vol]7.0 fLNormal7-12 [facility] Memorial HospitalComment on above:Performed By: #### 1987-07, , CBCA, CMP, 79170-6 ####[facility] ([id number])[address] [place] [address] 78758Wsdgtcsfg (Bld) [#/Vol]290 10*3/uLNormal 150-450ProTexas [facility]'S Hospital The WoodlandsComment on above:Performed By: #### 1987-07, , CBCA, CMP, 07388-4 ####[facility] ([id number])[address] [place] [address] 68655QYJ COUNT4.09 X10E12/LNormal3.80-5.20 [facility] CenterComment on above:Performed By: #### 1987-07, , CBCA, CMP, 49559-8 ####[facility] ([id number])[address] [place] [address] 68069HMT (Bld) [#/Vol]19.1 10*3/uLHigh4.0-11.0 [facility] CenterComment on above:Performed By: #### 1987-07, , CBCA, CMP, 33099-3 ####[facility] ([id number])[address] [place] [address] 85668LNOUWBODLCYGR METABOLIC PANELon 07-15-2024 Albumin [Mass/Vol]2.6 g/dLLow3.2-5.3PHolzer HospitalComment on above: Performed By: #### 1987-07, , CBCA, CMP, 93575-9 ####[facility] ([id number])[address] [place] [address] 86759HSU [Catalytic activity/Vol]87 U/OIgywpk83-516OfbAjdodhUpper Valley Medical CenterComment on above:Performed By: #### 1987-07, , CBCA, CMP, 83858-5 ####[facility] ([id number])[address] [place] [address] 34477RJR [Catalytic activity/Vol]13 U/LNormal0-31[facility] Comment on above:Performed By: #### 1987-07, , CBCA, CMP, 37699-4 ####[facility] ([id number])[address] [place] [address] 45749Swqsj gap [Moles/Vol]10 mmol/LNormal5-15ProTexas [facility] Hospital The WoodlandsComment on above:Performed By: #### 1987-07, , CBCA, CMP, 89820-6 ####[facility] ([id number])[address] [place] [address] 73363CQB [Catalytic activity/Vol]13 U/LNormal0-41ProTexas [facility] Hospital The WoodlandsComment on above:Performed By: #### 1987-07, , CBCA, CMP, 49695-8 ####[facility] ([id number])[address] [place] [address] 30551Plwbntser [Mass/Vol]0.4 mg/dLNormal0.3-1.2PHolzer HospitalComment on above:Performed By: #### 1987-07, , CBCA, CMP, 93240-9 ####[facility] ([id number])[address] [place] [address] 35758Kxwlhvz [Mass/Vol]8.0 mg/dLLow8.5-10.5PHolzer HospitalComment on above:Performed By: #### 1987-07, , CBCA, CMP, 34170-2 ####[facility] ([id number])[address] [place] [address] 96452Qcggjvwh [Moles/Vol]98 mmol/CQzmgno70-670CamLbknsoTexas Children'S Hospital The WoodlandsComment on above:Performed By: #### 1987-07, , CBCA, CMP, 48369-5 ####[facility] ([id number])[address] [place] [address] 91082FE7 [Moles/Vol]28 mmol/BSrfpig36-33XouPbibkhHolzer HospitalComment on above:Performed By: #### 1987-07, , CBCA, CMP, 97495-9 ####[facility] ([id number])[address] [place] [address] 28977Doxmqdriil [Mass/Vol]0.70 mg/dLNormal0.40-1.00[facility] CenterComment on above:Result Comment: METHOD TRACEABLE TO IDMS STANDARDPerformed By: #### 1987-07, , CBCA, CMP, 13041-3 ####[facility] ([id number])[address] [place] [address] 91040jWCA (CKD-EPI) NON-RACE DEPENDENT>90Normal>59Pro[facility] Comment on above:Result Comment: Reported eGFR is based on theCKD-EPI 2020 equation that doesnot use a race coefficient.Performed By: #### 1987-07, , CBCA, CMP, 80295-3 ####[facility] ([id number])[address] [place] [address] 61848Lmvntxl [Mass/Vol]193 mg/fNVrya98-98 [facility] CenterComment on above:Performed By: #### 1987-07, , CBCA, CMP, 60815-8 ####[facility] ([id number])[address] [place] [address] 18045Mlyfurotg [Moles/Vol]4.5 mmol/LNormal3.5-5.0 [facility] CenterComment on above:Performed By: #### 1987-07, , CBCA, CMP, 56416-2 ####[facility] ([id number])[address] [place] [address] 08869Ibryahy [Mass/Vol]6.0 g/dLNormal6.0-8.0 [facility] CenterComment on above:Performed By: #### 1987-07, , CBCA, CMP, 48666-4 ####[facility] ([id number])[address] [place] [address] 04561Ziadsw [Moles/Vol]136 mmol/JFcuayj349-346 [facility] CenterComment on above:Performed By: #### 1987-07, , CBCA, CMP, 65519-5 ####[facility] ([id number])[address] [place] [address] 61965Qdvv nitrogen [Mass/Vol]16 mg/dLNormal5-27 [facility] CenterComment on above:Performed By: #### 1987-07, , CBCA, CMP, 59556-3 ####[facility] ([id number])[address] [place] [address] 83350VJK [Mass/Vol]on 07-15-2024 REACTIVE PROTEIN6.9 mg/dLHigh0.000-[address] [place], [place] [address]Comment on above: Performed By: #### 1987-07, , CBCA, CMP, 71883-7 ####[facility] ([id number])[address] [place] [address] 85557Cmwbzrw Glucometer (BldC) [Mass/Vol]on 47-80-2530Ijzajpy [Mass/Vol]244 mg/gMCziu01-65 [facility] CenterGlucose [Mass/Vol]201 mg/nBJlsj68-86UpuTlpqklUpper Valley Medical CenterGlucose [Mass/Vol]155 mg/bGPuka32-08OvlSmpyvbTexas Children'S Hospital The WoodlandsMAGNESIUM on 78-72-6726Hwmeerjkt [Mass/Vol]2.2 mg/dLNormal1.8-2.6[facility] CenterComment on above:Performed By: #### 1987-07, , CBCA, CMP, 01103-2 ####[facility] ([id number])[address] [place] [address] 81440YK FOOT LT W WO CONTon 74-33-0091LU FOOT LT W WO CONT NormalUpper Valley Medical CenterMR FOOT RT W WO CONTon 66-00-3631YO FOOT RT W WO CONTProMedica Flower HospitalMR LOWER LEG LT W WO CONTon 70-68-2979VH LOWER LEG LT W WO CONTProMedica Flower HospitalMR LOWER LEG RT W WO CONT on 33-79-8611ZZ LOWER LEG RT W WO CONTProMedica Flower Hospital Procalcitonin IA [Mass/Vol]on 39-16-3824AIGSBUEMSKAFV7.08 ng/mLHigh<0.05 [facility] CenterComment on above:Result Comment: NOTE<0.50 ng/mL - Low risk of severe sepsis and/or septic shock.<2.00 ng/mL -Recommend retesting within 6-24 hours.>2.00 ng/mL - High risk of sepsis and/or septic shock. Performed By: #### 1988-5, , CBCA, CMP, 65635-5 ####[facility] ([id number])[address] [place] [address] 88776 Vancomycin peak [Mass/Vol]on 02-73-1868HDLDYOZOHV PEAK41.5 ug/qBBzpu38.00-40.00 [facility] CenterComment on above:Performed By: #### 4090-7 ####[facility] ([id number])[address] [place] [address] 80242UKD AND AUTO DIFFon 82-55-1100LDJEPYKC BASOPHIL0.0 X10E9/LNormal0.0-0.2 [facility] CenterComment on above:Performed By: #### CMP, CBCA, ####[facility] ([id number])[address] [place] [address] 53419SGGMCSEV FFVBNKVLNS97.7 X10E9/LHigh1.5-6.6[facility] CenterComment on above:Performed By: #### CMP, CBCA, ####[facility] ([id number])[address] [place] [address] 98068Knajwewqo/100 WBC (Bld)0.1 %NormalUpper Valley Medical CenterComment on above:Performed By: #### CMP, CBCA, ####[facility] ([id number])[address] [place] [address] 51984Lgzieedalxg (Bld) [#/Vol]0.0 10*3/uLNormal0.0-0.4[facility] Comment on above:Performed By: #### CMP, CBCA, ####[facility] ([id number])[address] [place] [address] 91714 Eosinophils/100 WBC (Bld)0.0 %[facility] Flower HospitalComment on above: Performed By: #### CMP, CBCA, ####[facility] ([id number])[address] [place] [address] 33955Zvzyvengjrg distribution width (RBC) [Ratio]20.9 %High11.5-15.0[facility] Comment on above:Performed By: #### YULISA, CBCA, ####[facility] ([id number])[address] [place] [address] 64483 Hematocrit (Bld) [Volume fraction]35.6 %Acfnfv74-21FinVfqorfUpper Valley Medical Center Comment on above:Performed By: #### CMP, CBCA, ####[facility] ([id number])[address] [place] [address] 93400 Hemoglobin (Bld) [Mass/Vol]11.3 g/dLLow11.7-15.5[facility] Comment on above:Performed By: #### CMP, CBCA, ####[facility] ([id number])[address] [place] [address] 37364 Lymphocytes (Bld) [#/Vol]0.3 10*3/uLLow1.0-3.5[facility] Memorial HospitalComment on above:Performed By: #### CMP, CBCA, ####[facility] ([id number])[address] [place] [address] 49752Gotgmiuucwt/100 WBC (Bld)2.3 %NormalProTexas Children'S Hospital The WoodlandsComment on above:Performed By: #### CMP, CBCA, ####[facility] ([id number])[address] [place] [address] 29466EZL (RBC) [Entitic mass]26.8 aqDpc86-79 [facility] HospitalComment on above:Performed By: #### CMP, CBCA, ####[facility] ([id number])[address] [place] [address] 73305NZLB (RBC) [Mass/Vol]31.8 g/mAQqj06-52FlcNdsjxwTexas Children'S Hospital The WoodlandsComment on above:Performed By: #### CMP, CBCA, ####[facility] ([id number])[address] [place] [address] 99990DEJ (RBC) [Entitic vol]85 cBYezvdg33-930MpzRbpxwyUpper Valley Medical CenterComment on above:Performed By: #### CMP, CBCA, ####[facility] ([id number])[address] [place] [address] 05714Tathegipv (Bld) [#/Vol]0.1 10*3/uLNormal0-0.9[facility] CenterComment on above: Performed By: #### CMP, CBCA, ####[facility] ([id number])[address] [place] [address] 29747Xfqrrgegu/100 WBC (Bld)0.7 %NormalUpper Valley Medical CenterComment on above:Performed By: #### CMP, CBCA, ####[facility] ([id number])[address] [place] [address] 78678Ayuejhephlu/100 WBC (Bld)96.9 %Normal [facility] CenterComment on above:Performed By: #### YULISA, CBCA, ####[facility] ([id number])[address] [place] [address] 40546Jmtjurns mean volume (Bld) [Entitic vol]7.1 fLNormal7-12 [facility] CenterComment on above:Performed By: #### YULISA, CBCA, ####[facility] ([id number])[address] [place] [address] 38998Sbemjkxtx (Bld) [#/Vol]252 10*3/tEXyfrbk920-068ImnQtrals Fremont HospitalComment on above:Performed By: #### YULISA, CBCA, ####[facility] ([id number])[address] [place] [address] 95115CAN COUNT4.21 X10E12/LNormal3.80-5.20[facility] CenterComment on above:Performed By: #### YULISA, CBCA, ####[facility] ([id number])[address] [place] [address] 76402GBW (Bld) [#/Vol]14.2 10*3/uLHigh4.0-11.0[facility] CenterComment on above:Performed By: #### YULISA, CBCA, ####[facility] ([id number])[address] [place] [address] 54649VFKGFUEQLEKKP METABOLIC PANELon 47-89-8590Jzwkjkx [Mass/Vol]2.7 g/dLLow3.2-5.3PHolzer HospitalComment on above:Performed By: #### PRIYANK MÁRQUEZ, ####[facility] ([id number])[address] [place] [address], [place] [address]JVX [Catalytic activity/Vol]93 U/ALnwytx38-466GozBsysqfTexas Children'S Hospital The WoodlandsComment on above:Performed By: #### YULISA CBCAriana, ####[facility] ([id number])[address] [place] [address], [place] [address]YXE [Catalytic activity/Vol]14 U/LNormal0-31PHolzer HospitalComment on above:Performed By: #### PRIYANK MÁRQUEZ, ####[facility] ([id number])[address] [place] [address], [place] [address]Botix gap [Moles/Vol]10 mmol/LNormal5-15ProTexas Children'S Hospital The WoodlandsComment on above:Performed By: #### YULISA CBCAriana, ####[facility] ([id number])[address] [place] [address], [place] [address]XXW [Catalytic activity/Vol]11 U/LNormal0-41ProTexas [facility] Comment on above:Performed By: #### PRIYANK MÁRQUEZ, ####[facility] ([id number])[address] [place] [address], [place] [address] Bilirubin [Mass/Vol]0.4 mg/dLNormal0.3-1.2PHolzer HospitalComment on above:Performed By: #### YULISA CBCA, ####[facility] ([id number])[address] [place] [address], [place] [address]Kokouns [Mass/Vol]8.0 mg/dLLow8.5-10.5PHolzer HospitalComment on above: Performed By: #### YULISA CBCAriana, ####[facility] ([id number])[address] [place] [address], [place] [address]Qmrlroyx [Moles/Vol]103 mmol/UKarzhs31-203OoxLcxqqcTexas Children'S Hospital The WoodlandsComment on above: Performed By: #### PRIYANK MÁRQUEZ, ####[facility] ([id number])[address] [place] [address], [place] [address]BP9 [Moles/Vol]25 mmol/GMtqpar26-41JdnEncdnu [facility]ont HospitalComment on above:Performed By: #### PRIYANK MÁRQUEZ, ####[facility] ([id number])[address] [place] [address], [place] [address]Usyxmjphke [Mass/Vol]0.73 mg/dLNormal 0.40-1.00[facility] CenterComment on above:Result Comment: METHOD TRACEABLE TO IDMS STANDARDPerformed By: #### PRIYANK MÁRQUEZ, ####[facility] ([id number])[address] [place] [address], [place] [address]nCYJ (CKD-EPI) NON-RACE DEPENDENT>90Normal>59ProTexas [facility]'S Hospital [facility] Comment on above:Result Comment: Reported eGFR is based on theCKD-EPI 2020 equation that doesnot use a race coefficient.Performed By: #### PRIYANK MÁRQUEZ, ####[facility] ([id number])[address] [place] [address], [place] [address]Irsuaxe [Mass/Vol]271 mg/xJXqqx50-38QlnGvlryfTexas Children'S Hospital The WoodlandsComment on above:Performed By: #### PRIYANK MÁRQUEZ, ####[facility] ([id number])[address] [place] [address] [place] [address]Lkcdeayxy [Moles/Vol]4.0 mmol/LNormal3.5-5.0[facility] Comment on above:Performed By: #### PRIYANK MÁRQUEZ, ####[facility] ([id number])[address] [place] [address] 06402Owtcyba [Mass/Vol]6.1 g/dLNormal6.0-8.0ProTexas Children'S Hospital The WoodlandsComment on above: Performed By: #### PRIYANK MÁRQUEZ, ####[facility] ([id number])[address] [place] [address] 97549Tpllrj [Moles/Vol]138 mmol/QSvyhsn526-879AzxNlcntq [facility] HospitalComment on above: Performed By: #### PRIYANK MÁRQUEZ, ####[facility] ([id number])[address] [place] [address] 10447Zosn nitrogen [Mass/Vol]13 mg/dLNormal5-27ProTexas Children'S Hospital The WoodlandsComment on above:Performed By: #### PRIYANK MÁRQUEZ, ####[facility] ([id number])[address] [place] [address] 62062Xknihwb Glucometer (BldC) [Mass/Vol]on 74-33-2628Yrawetv [Mass/Vol]166 mg/cUJerb34-88YbdQhxqxoUpper Valley Medical CenterGlucose [Mass/Vol]255 mg/aZLvjh07-53InjEwzuhqUpper Valley Medical CenterGlucose [Mass/Vol]276 mg/qUFobq08-66JbpRiuvunUpper Valley Medical CenterMAGNESIUMon 97-36-7273Lirijvkhh [Mass/Vol]2.1 mg/dLNormal1.8-2.6[facility] CenterComment on above: Performed By: #### PRIYANK MÁRQUEZ, ####[facility] ([id number])[address] [place] [address] 32071LESJP METABOLIC PANLon 02-80-5660Awfup gap [Moles/Vol]9 mmol/LNormal5-15ProTexas Children'S Hospital The WoodlandsComment on above:Performed By: #### PRIYANK, 12530-8, BMP ####[facility] ([id number])[address] [place] [address] 33711#### HA1C ####[facility] ([id number])[address] [facility], [place] [address]Nooyfxm [Mass/Vol]8.6 mg/dLNormal8.5-10.5PHolzer HospitalComment on above:Performed By: #### PRIYANK, 05853-0, BMP ####[facility] ([id number])[address] [place] [address] 06315#### HA1C ####[facility] ([id number])[address] [facility], [address], [place] [address]Pgwypztj [Moles/Vol]103 mmol/HVqmxrz50-994NpuWalrspTexas Children'S Hospital The WoodlandsComment on above:Performed By: #### PRIYANK, 70333-8, BMP ####[facility] ([id number])[address] [place] [address] 22960#### HAJp ####[facility] ([id number])[address] [facility], [place] [address]PI0 [Moles/Vol]25 mmol/L Ggpewp60-95UybUavlhzHolzer HospitalComment on above:Performed By: #### PRIYANK, 41834-7, BMP ####[facility] ([id number])[address] [place] [address] 60115#### HA1C ####[facility] ([id number])[address] [facility], [address], [place] [address]Oioronrezv [Mass/Vol]0.79 mg/dLNormal0.40-1.00ProTexas Children'S Hospital The WoodlandsComment on above:Result Comment: METHOD TRACEABLE TO IDMS STANDARDPerformed By: #### PRIYANK, 85029-6, BMP ####[facility] ([id number])[address] [place] [address] 56730#### HA1C ####[facility] ([id number])[address], [place] [address]DAM/1.73 sq M.predicted among non-blacks MDRD (S/P/Bld) [Vol rate/Area]83 mL/min/{1.73_m2}Normal>59 [facility] Memorial HospitalComment on above:Result Comment: Reported eGFR is based on theCKD-EPI 2020 equation that doesnot use a race coefficient.Performed By: #### PRIYAKN 51956-2, BMP ####[facility] ([id number])[address] [place] [address] 72960#### HAJp ####[facility] ([id number])[address] [place] [address] 226[address]Tpezfxl [Mass/Vol]104 mg/gBAdqu44-48OmwIbmxcj [facility] HospitalComment on above:Performed By: #### PRIYANK 75820-9, BMP ####[facility] ([id number])[address] [place] [address] 16485#### HAJp ####[facility] ([id number])[address], [address] [place] [address] 949[address]Mutorqckz [Moles/Vol]3.7 mmol/LNormal3.5-5.0Pro[facility]ica Scripps Memorial HospitalComment on above:Performed By: #### PRIYANK 75411-2, BMP ####[facility] ([id number])[address] [place] [address] 31052#### HA1C ####[facility] ([id number])[address], [place] [address]Ofquab [Moles/Vol]137 mmol/JXomspr227-026JcyRefcgh [facility] HospitalComment on above:Performed By: #### CBCAriana, 51740-4, BMP ####[facility] ([id number])[address] [place] [address] 02036#### HA1C ####[facility] ([id number])[address], [address] [place] [address] 99[address]Rowj nitrogen [Mass/Vol]9 mg/dLNormal5-27ProTexas Children'S Hospital The WoodlandsComment on above:Performed By: #### CBCA, 92254-6, BMP ####[facility] ([id number])[address] [place] [address]#### HA1C ####[facility] ([id number])[address], [address] [place] [address] 11781MXLFN CULTUREon 07-13-2024 Bacteria identified Aer cx Nom (Bld)SPECIMEN NOTES SUBOPTIMAL VOLUME OF BLOOD COLLECTED, RESULTS MAY BE AFFECTED. CULTURE RESULTS NO GROWTH 5 DAYSNormalUpper Valley Medical CenterComment on above:Performed By: #### 03375-0 ####[facility] ([id number])[address], [address] [place] [address] 38833Rsrogayx identified Aer cx Nom (Bld)CULTURE RESULTS NO GROWTH 5 DAYSNormalUpper Valley Medical CenterCBC AND AUTO DIFFon 07-13-2024 ABSOLUTE BASOPHIL0.1 X10E9/LNormal0.0-0.2ProMedica Scripp[facility] Memorial HospitalComment on above:Performed By: #### CBCA, 34222-8, BMP ####[facility] ([id number])[address] [place] [address]#### HA1C ####[facility] ([id number])[address], [address] [place] [address] 44965BNCKEXEM HGQDORZHNA61.3 X10E9/LHigh1.5-6.6ProDayton Va Medical Centerca [facility] Comment on above:Performed By: #### CBCAriana, 63311-9, BMP ####[facility] ([id number])[address] [place] [address]#### HA1C ####[facility] ([id number])[address], [address], [place] [address]Woojrnxqu/100 WBC (Bld)0.9 %NormalUpper Valley Medical Center Comment on above:Performed By: #### CBCAriana, 52452-1, BMP ####[facility] ([id number])[address] [place] [address]#### HA1C ####[facility] ([id number])[address], [address], [place] [address]Mceqzmcmymd (Bld) [#/Vol]0.3 10*3/uLNormal0.0-0.4ProTexas Children'S Hospital The WoodlandsComment on above:Performed By: #### CBCAriana, 98174-5, BMP ####[facility] ([id number])[address] [place] [address]#### HAJp ####[facility] ([id number])[address], [address] [place] [address] 99[address]Jzakcxvkxqb/100 WBC (Bld) 1.9 %NormalUpper Valley Medical CenterComment on above:Performed By: #### CBCAriana, 64886-9, BMP ####[facility] ([id number])[address] [place] [address]#### HA1C ####[facility] ([id number])[address], [place] [address]Sujmyexeqqz distribution width (RBC) [Ratio]21.0 %High11.5-15.0ProTexas Children'S Hospital The WoodlandsComment on above:Performed By: #### PRIYANK, 71509-0, BMP ####[facility] ([id number])[address] [place] [address]#### HA1C ####[facility] [facility] ([id number])[address], [address], [place] [address]Pfcqlrbont (Bld) [Volume fraction]36.3 %Xqhnwe88-31LetLnjwsx [facility] Memorial HospitalComment on above:Performed By: #### PRIYANK, 12018-4, BMP ####[facility] ([id number])[address] [place] [address] 15606#### HA1C ####[facility] ([id number])[address], [address], [place] [address]Jehtptdedi (Bld) [Mass/Vol]11.6 g/dLLow11.7-15.5 [facility] Memorial HospitalComment on above:Performed By: #### PRIYANK, 59426-6, BMP ####[facility] ([id number])[address] [place] [address] 63252#### HA1C ####[facility] ([id number])[address], [address], [place] [address]Vzzsrrqqzbd (Bld) [#/Vol] 1.3 10*3/uLNormal1.0-3.5Pro[facility] Memorial HospitalComment on above:Performed By: #### PRIYANK, 84707-4, BMP ####[facility] ([id number])[address] [place] [address] 25516#### HA1C ####[facility] ([id number])[address], [address], [place] [address]Xtovkuhlnhd/100 WBC (Bld)7.6 %NormalProDayton Va Medical Centerca [facility]s Memorial HospitalComment on above:Performed By: #### PRIYANK, 33501-3, BMP ####[facility] ([id number])[address] [place] [address] 01939#### HA1C ####[facility] ([id number])[address], [address] [place] [address]IPM (RBC) [Entitic mass] 26.7 nxKrh16-30KkyZptowuTexas Children'S Hospital The WoodlandsComment on above:Performed By: #### PRIYANK, 81582-3, BMP ####[facility] ([id number])[address] [place] [address] 56305#### HAJp ####[facility] ([id number])0 [facility], [address] [place] [address] 25668UBCQ (RBC) [Mass/Vol]31.9 g/kLNjk05-50TafRkjhbnTexas Children'S Hospital The WoodlandsComment on above:Performed By: #### PRIYANK, 05790-2, BMP ####[facility] ([id number])[address] [place] [address] 79151#### HAJp ####[facility] ([id number])[address], [address] [place] [address] 36360VIP (RBC) [Entitic vol]84 kNBxvxcg97-209KvtAvplue Fremont HospitalComment on above:Performed By: #### PRIYANK, 57462-9, BMP ####[facility] ([id number])[address] [place] [address] 17187#### HA1C ####[facility] ([id number])[address], [address] [place] [address] 942[address]Krzmwvmhl (Bld) [#/Vol]1.0 10*3/uLHigh0-0.9ProTexas Children'S Hospital The WoodlandsComment on above:Performed By: #### PRIYANK, 19256-1, BMP ####[facility] ([id number])[address] [place] [address] 98557#### BRIJESH ####[facility] ([id number])[address], [address], [place] [address]Fqwvjzcdj/100 WBC (Bld)5.7 %NormalUpper Valley Medical CenterComment on above:Performed By: #### PRIYANK 73625-1, BMP ####[facility] ([id number])[address] [place] [address] 33210#### HAJp ####[facility] ([id number])[address] [facility], [address], [place] [address]Yhganfwubkr/100 WBC (Bld) 83.9 %NormalUpper Valley Medical CenterComment on above:Performed By: #### PRIYANK 43539-5, BMP ####[facility] ([id number])[address] [place] [address] 32686#### BRIJESH ####[facility] ([id number])[address], [address] [place] [address] 04376Ayznxvwf mean volume (Bld) [Entitic vol]7.1 fLNormal7-12Pro[facility] Memorial HospitalComment on above: Performed By: #### PRIYANK 11685-8, BMP ####[facility] ([id number])[address] [place] [address] 54726#### HAJp ####[facility] ([id number])[address], [address] [place] [address] 55466Qqgzsvwws (Bld) [#/Vol]288 10*3/vCJlqrmn624-048IksMoctiw [facility] Comment on above:Performed By: #### PRIYANK, 30583-5, BMP ####[facility] ([id number])[address] [place] [address] 94403#### BRIJESH ####[facility] ([id number])[address] [place] [address], [address] [place] [address] 39485LKP COUNT4.35 X10E12/LNormal3.80-5.20ProTexas Children'S Hospital The WoodlandsComment on above:Performed By: #### PRIYANK 16335-6, BMP ####[facility] ([id number])[address] [place] [address] 08926#### BRIJESH ####[facility] ([id number])[address] [place] [address], [address] [place] [address] 99188FZA (Bld) [#/Vol]17.0 10*3/uLHigh4.0-11.0ProTexas Children'S Hospital The WoodlandsComment on above:Performed By: #### PRIYANK 34146-7, BMP ####[facility] ([id number])[address] [place] [address] 94528#### BRIJESH ####[facility] ([id number])[address] [place] [address], [address] [place] [address] 50715Yxlwavw Glucometer (BldC) [Mass/Vol]on 43-73-4107Vfqdayd [Mass/Vol]329 mg/vARymy11-95PjeOsvofgUpper Valley Medical CenterGlucose [Mass/Vol]318 mg/zTWzjb14-88DwiWwstxhTexas Children'S Hospital The WoodlandsHGB A1C (GLYCO-HGB)on 81-45-1765Lkllehm [Mass/Vol]171 mg/dLNormalProTexas Children'S Hospital The WoodlandsComment on above:Performed By: #### PRIYANK, 61380-1, BMP ####[facility] ([id number])[address] [place] [address] 98889#### HAJp ####[facility] ([id number])[address] [place] [address], [address] [place] [address] 15174RzY0l (Bld) [Mass fraction]7.6 %High4.4-5.6ProTexas Children'S Hospital The WoodlandsComment on above:Result Comment: NOTE ADA Guidelines Result HgbA1c Normal : less than 5.7 % Prediabetes : 5.7 % to 6.4 % Diabetes : > 6.4 %Use with caution in patients with abnormal hemoglobin variants asthe half-life of red blood cells and in vivo glycation rates areaffected.Performed By: #### CBCA, 47713-1, BMP ####[facility] ([id number])[address] [place] [address] 14999#### HA1C ####[facility] ([id number])[address] [place] [address] 12825Dudfbws (P nathalie) [Moles/Vol]on 77-56-5743QNVHFQQ W/REFLEX0.7 mmol/LNormal 0.4-2.0ProTexas Children'S Hospital The WoodlandsComment on above:Result Comment: Result did not trigger repeat Lactate,re-order if needed.Performed By: #### 26784-9 ####[facility] ([id number])[address] [place] [address] 48248UXJB PCR NASALon 30-80-0879ATHS DNA JANIA+probe Ql (Unsp spec) NegativeNormalNEGProTexas Children'S Hospital The WoodlandsComment on above:Performed By: #### 85361-3 ####[facility] ([id number])[address] [place] [address] 72892Udnlfjez I.cardiac High sensitivity method [Mass/Vol]on HOUR TROP I, HIGH SENSITIVITY6 ng/LNormal<16ProTexas Children'S Hospital The WoodlandsComment on above:Performed By: #### 52134-7 ####[facility] ([id number])[address] [place] [address], [place] [address]HGPCBAGU I, HIGH SENSITIVITY5 ng/LNormal<16Upper Valley Medical CenterComment on above: Performed By: #### PRIYANK, 25466-6, BMP ####[facility] ([id number])[address] [place] [address], [place] [address]#### HA1C ####[facility] ([id number])[address] [facility], [address], [place] [address]PE CHEST 1 VWon 92-31-4370VS CHEST 1 VWNormalProTexas Children'S Hospital The WoodlandsXR FOOT LT MIN 3 VWSon 66-88-3870PS FOOT LT MIN [address] Charles HospitalXR FOOT RT MIN 3 VWSon 90-70-4437BX FOOT RT MIN 3 [facility] HospitalBASIC METABOLIC PANLon 04-04-7413Izxei gap [Moles/Vol]9 mmol/L Normal5-15ProTexas Children'S Hospital The WoodlandsComment on above:Performed By: #### PRIYANK ALEMAN, BMP ####[facility] ([id number])[address] [place] [address] 59184Jqpikae [Mass/Vol]8.9 mg/dLNormal8.5-10.5PHolzer HospitalComment on above:Performed By: #### PRIYANK ALEMAN, BMP ####[facility] ([id number])[address] [place] [address]10 Chloride [Moles/Vol]102 mmol/UHujkoa96-370PmzYanbkcTexas Children'S Hospital The WoodlandsComment on above:Performed By: #### PRIYANK ALEMAN, BMP ####[facility] ([id number])[address] [place] [address] 11181IK8 [Moles/Vol]23 mmol/DLrlllu85-09SrvTizitaHolzer HospitalComment on above:Performed By: #### LIVDarlin CBCAriana, BMP ####[facility] ([id number])[address] [place] [address] 61217Iwjbjtkhib [Mass/Vol]0.82 mg/dLNormal0.40-1.00 ProMAnderson SanatoriumComment on above:Result Comment: METHOD TRACEABLE TO IDMS STANDARDPerformed By: #### PRIYANK ALEMAN BMP ####[facility] ([id number])[address] [place] [address] 58168BKC/1.73 sq M.predicted among non-blacks MDRD (S/P/Bld) [Vol rate/Area]80 mL/min/{1.73_m2} Normal>59ProTexas Children'S Hospital The WoodlandsComment on above:Result Comment: Reported eGFR is based on theCKD-EPI 2020 equation that doesnot use a race coefficient. Performed By: #### PRIYANK ALEMAN BMP ####[facility] ([id number])[address] [place] [address] 57379Jqkmffb [Mass/Vol]155 mg/dLHigh 65-99ProTexas Children'S Hospital The WoodlandsComment on above:Performed By: #### PRIYANK ALEMAN BMP ####[facility] ([id number])[address] [place] [address] 21339Ixdonuofz [Moles/Vol]5.0 mmol/LNormal3.5-5.0Upper Valley Medical CenterComment on above:Performed By: #### PRIYANK ALEMAN, BMP ####[facility] ([id number])[address] [place] [address] 33632 Sodium [Moles/Vol]134 mmol/SRyafps296-070CfmWpxqye Fremont HospitalComment on above:Performed By: #### PRIYANK ALEMAN, BMP ####[facility] ([id number])[address] [place] [address] 04944Wicu nitrogen [Mass/Vol]11 mg/dLNormal5-27ProTexas Children'S Hospital The WoodlandsComment on above:Performed By: #### ASH CBCAriana, BMP ####[facility] ([id number])[address] [place] [address] 85717AXB AND AUTO DIFFon 80-30-7058AZWOFFFS BASOPHIL0.1 X10E9/LNormal0.0-0.2ProMedica [facility] HospitalComment on above: Performed By: #### LIVDarlin CBCA, BMP ####[facility] ([id number])[address] [place] [address] 47115CNXWRKKT NEUTROPHIL8.0 X10E9/L High1.5-6.6Upper Valley Medical CenterComment on above:Performed By: #### LIVDarlin CBCA, BMP ####[facility] ([id number])[address] [place] [address] 67968Ybnwtsvgm/100 WBC (Bld)1.4 %NormalProTexas Children'S Hospital The WoodlandsComment on above:Performed By: #### LIVDarlin CBCA, BMP ####[facility] ([id number])[address] [place] [address] 72386 Eosinophils (Bld) [#/Vol]0.4 10*3/uLNormal0.0-0.4[facility] Comment on above:Performed By: #### LIVDarlin CBCA, BMP ####[facility] ([id number])[address] [place] [address] 12223 Eosinophils/100 WBC (Bld)3.7 %NormalUpper Valley Medical CenterComment on above: Performed By: #### LIVDarlin CBCA, BMP ####[facility] ([id number])[address] [place] [address] 76214Ryyxwzddigr distribution width (RBC) [Ratio]18.6 %High11.5-15.0Upper Valley Medical CenterComment on above: Performed By: #### LIVR, CBCA, BMP ####[facility] ([id number])[address] [place] [address] 50806Pooppzcfsw (Bld) [Volume fraction]39.2 %Wfzuwz74-59NfnTkvtlbTexas Children'S Hospital The WoodlandsComment on above:Performed By: #### LIVDarlin CBCA, BMP ####[facility] ([id number])[address] [place] [address] 11247Njfodmibyg (Bld) [Mass/Vol]12.9 g/dL Pemcdf73.7-15.5ProMedica Scripp[facility] Memorial HospitalComment on above:Performed By: #### LIVDarlin CBCA, BMP ####[facility] ([id number])[address] [place] [address] 16012Pektalfkzft (Bld) [#/Vol]1.1 10*3/uLNormal1.0-3.5 [facility] HospitalComaspirus ontonagon hospital on above:Performed By: #### LIVR, CBCA, BMP ####[facility] ([id number])[address] [place] [address] 96034Wxztxdzdoen/100 WBC (Bld)10.7 %NormalUpper Valley Medical CenterComment on above:Performed By: #### LIVR CBCA, BMP ####[facility] ([id number])[address] [place] [address] 07038NIV (RBC) [Entitic mass]27.9 wqAsymyf39-81GrkUyxoksTexas Children'S Hospital The WoodlandsComment on above:Performed By: #### LIVR, CBCA, BMP ####[facility] ([id number])[address] [place] [address] 52910JMST (RBC) [Mass/Vol]32.8 g/rTTkksok24-72IwyEcrpxvTexas Children'S Hospital The WoodlandsComment on above: Performed By: #### LIVR, CBCA, BMP ####[facility] ([id number])[address] [place] [address], [place] [address]DYO (RBC) [Entitic vol]85 fL Zgarjh31-357DrfWnffozTexas Children'S Hospital The WoodlandsComment on above:Performed By: #### LIVDarlin, CBCA, BMP ####[facility] ([id number])[address] [place] [address] 62347Hpuzemnrq (Bld) [#/Vol]0.8 10*3/uLNormal0-0.9Upper Valley Medical CenterComment on above:Performed By: #### LIVDarlin, CBCA, BMP ####[facility] ([id number])[address] [place] [address] 21714 Monocytes/100 WBC (Bld)7.6 %NormalUpper Valley Medical CenterComment on above: Performed By: #### LIVDarlin, CBCA, BMP ####[facility] ([id number])[address] [place] [address], [place] [address]Hcrvianciyr/100 WBC (Bld)76.6 % NormalUpper Valley Medical CenterComment on above:Performed By: #### LIVR, CBCA, BMP ####[facility] ([id number])[address] [place] [address] 79784Wzbnhcal mean volume (Bld) [Entitic vol]7.5 fLNormal7-12 ProMAnderson SanatoriumComment on above:Performed By: #### LIVR, CBCA, BMP ####[facility] ([id number])[address] [place] [address] 60273Pnzjhagtg (Bld) [#/Vol]259 10*3/aDUkoxby469-414HpmHcafhm [facility]remont HospitalComment on above:Performed By: #### LIVR, CBCA, BMP ####[facility] ([id number])[address] [place] [address], [place] [address] RBC COUNT4.61 X10E12/LNormal3.80-5.20ProTexas Children'S Hospital The WoodlandsComment on above: Performed By: #### PRIYANK ALEMAN, BMP ####[facility] ([id number])[address] [place] [address] 81760UKM (Bld) [#/Vol]10.4 10*3/uL Normal4.0-11.0ProTexas Children'S Hospital The WoodlandsComment on above:Performed By: #### PRIYANK ALEMAN, BMP ####[facility] ([id number])[address] [place] [address] 26497SLPLY PANELon 77-00-3064Egmbpdv [Mass/Vol]3.8 g/dL Normal3.2-5.3PHolzer HospitalComment on above:Performed By: #### PRIYANK ALEMAN, BMP ####[facility] ([id number])[address] [place] [address], [place] [address]VRS [Catalytic activity/Vol]105 U/AAbfxot27-985DcxBeuvzcTexas Children'S Hospital The WoodlandsComment on above:Performed By: #### PRIYANK ALEMAN, BMP ####[facility] ([id number])[address] [place] [address], [place] [address] ALT [Catalytic activity/Vol]13 U/LNormal0-31PHolzer HospitalComment on above:Performed By: #### PRIYANK ALEMAN, BMP ####[facility] ([id number])[address] [place] [address], [place] [address]DWF [Catalytic activity/Vol]22 U/LNormal0-41ProTexas Children'S Hospital The WoodlandsComment on above: Performed By: #### PRIYANK ALEMAN, BMP ####[facility] ([id number])[address] [place] [address] 15513Zbjdhviet [Mass/Vol]1.1 mg/dL Normal0.3-1.2ProMedica Scripps Memorial HospitalComment on above:Performed By: #### PRIYANK ALEMAN, BMP ####[facility] ([id number])[address] [place] [address] 07686Xcgpjoyfp.direct [Mass/Vol]0.2 mg/dLNormal0.0-0.4 Pro[facility] HospitalComment on above:Performed By: #### PRIYANK ALEMAN, BMP ####[facility] ([id number])[address] [place] [address] 49125Tikqlce [Mass/Vol]7.4 g/dLNormal6.0-8.0ProMedica Scripp[facility] Memorial HospitalComment on above:Performed By: #### PRIYANK ALEMAN, BMP ####[facility] ([id number])[address] [place] [address] 94977XRGCW METABOLIC PANLon 08-63-6878Osdye gap [Moles/Vol]13 mmol/LNormal5-15ProOhiohealth O'Bleness HospitalComment on above:Performed By: #### PRIYANK, 57106-6, CMP #### [facility] ([id number]) [address], [address] [place], [place] [address]Yrayaqo [Mass/Vol]9.0 mg/dLNormal8.5-10.5PPaulding County HospitalComment on above:Performed By: #### PRIYANK, 52883-7, CMP #### [facility] ([id number]) [address] [place], [place] [address]Mcicvyvz [Moles/Vol]97 mmol/NAcm13-135BpbTrbocwOhiohealth O'Bleness Hospital Comment on above:Performed By: #### PRIYANK, 51937-0, CMP #### [facility] ([id number]) [address] [place], [place] [address]GF0 [Moles/Vol]27 mmol/IAeyiti21-94XlbTorgdsPaulding County Hospital Comment on above:Performed By: #### PRIYANK , CMP #### [facility] ([id number]) [address], [address] [place], [place] [address]Uzoixwsijv [Mass/Vol]0.53 mg/dLNormal0.40-1.00ProOhiohealth O'Bleness HospitalComment on above:Result Comment: METHOD TRACEABLE TO IDMS STANDARD Performed By: #### PRIYANK , CMP #### [facility] ([id number]) [address], [address] [place], [place] [address]dJQU (CKD-EPI) NON-RACE DEPENDENT>90Normal>59ProOhiohealth O'Bleness HospitalComment on above:Result Comment: Reported eGFR is based on the CKD-EPI 2020 equation that does not use a race coefficient.Performed By: #### PRIYANK , CMP #### [facility] ([id number]) [address] [place], [place] [address]Uscbisj [Mass/Vol]121 mg/jUVnib98-36KzjUkkpktMemorial Health System Comment on above:Performed By: #### PRIYANK , CMP #### [facility] ([id number]) [address] [place], [place] [address]Yjqapfbhz [Moles/Vol]3.4 mmol/LLow3.5-5.0ProOhiohealth O'Bleness HospitalComment on above:Performed By: #### PRIYANK , CMP #### [facility] ([id number]) [address] [place], [place] [address]Iqvuyq [Moles/Vol]137 mmol/BZvpoes353-835AtpRdmcms [place] HospitalComment on above:Performed By: #### PRIYANK, , CMP #### [facility] ([id number]) [address] [place], [place] [address]Oxxp nitrogen [Mass/Vol]9 mg/dLNormal5-27ProKettering Health Dayton HospitalComment on above:Performed By: #### PRIYANK, , CMP #### [facility] ([id number]) [address] [place], [place] [address]MEFQVURR BLOOD COUNTon 74-36-4185Xocitengjqb distribution width (RBC) [Ratio]17.6 %High11.5-15.0ProDayton Va Medical Centerca Chelsea HospitalComment on above: Performed By: #### PRIYANK, , CMP #### [facility] ([id number]) [address] [facility] [address] [place], [place] [address]Vxxjfecnbk (Bld) [Volume fraction]38.3 %Hijsqa39-31ApcChrxci [place] HospitalComment on above:Performed By: #### PRIYANK, , CMP #### [facility] ([id number]) [address], [address] [place], [place] [address]Edqzuvqgip (Bld) [Mass/Vol]12.9 g/pYFqsijd06.7-15.5[facility] HospitalComment on above:Performed By: #### PRIYANK, , CMP #### [facility] ([id number]) [address] [facility] [address] [place], [place] [address]BKG (RBC) [Entitic mass]29.4 xlFmpkbf00-12JvmSprurx [place] HospitalComment on above:Performed By: #### PRIYANK, , CMP #### [facility] ([id number]) [address], [address] [place], [place] [address]HSFJ (RBC) [Mass/Vol]33.7 g/nRMcqimo56-28HvsJngmdh [place] HospitalComment on above:Performed By: #### PRIYANK, , CMP #### [facility] ([id number]) [address], [address] [place], [place] [address]WKR (RBC) [Entitic vol]87 hDCmbace37-510YviWakrui [place] HospitalComment on above:Performed By: #### PRIYANK, , CMP #### [facility] ([id number]) [address], [address] [place], [place] [address]Srbxrcoi mean volume (Bld) [Entitic vol]7.1 fLNormal7-12 [facility] HospitalComment on above:Performed By: #### PRIYANK, , CMP #### [facility] ([id number]) [address], [address] [place], [place] [address]Medbxvsms (Bld) [#/Vol]225 10*3/oDNnhluj089-642TjpKykjym [place] HospitalComment on above:Performed By: #### PRIYANK, , CMP #### [facility] ([id number]) [address], [address] [place] [address]QUM COUNT4.40 X10E12/LNormal3.80-5.20[facility] Comment on above:Performed By: #### PRIYANK, , CMP #### [facility] ([id number]) [address], [address] [place] [address]NQS (Bld) [#/Vol]9.8 10*3/uLNormal4.0-11.0ProOhiohealth O'Bleness HospitalComment on above:Performed By: #### PRIYANK, , CMP #### [facility] ([id number]) [address], [address] [place] [address]Obenlrb unfractionated Chromogenic method Qn (PPP)on 04-19-2024 ANTI XA UFH0.42 IU/mLNormal0.30-0.70ProOhiohealth O'Bleness HospitalComment on above: Result Comment: Optimal time for testing is 6 hrs post dosage This test is specific for monitoring patients on UFH, and is not recommended for use with other Anti-Xa medications.Performed By: #### PRIYANK, [id number], CMP #### [facility] ([id number]) [address], [address] [place], [place] [address]JJMXWQL AND INRon 26-05-7036XRN Coag (PPP) [Relative time]1.0 {INR}Normal0.8-1.1PKettering Health Main Campus HospitalComment on above:Performed By: #### PRIYANK, , CMP #### [facility] ([id number]) [address], [address] [place], [place] [address]XU Coag (PPP) [Time]11.5 sNormal9.8-13.2PPaulding County HospitalComment on above:Performed By: #### PRIYAKN, [id number], CMP #### [facility] ([id number]) [address], [address] [place], [place] [address]KIVPP METABOLIC PANLon 89-79-7611Yevhp gap [Moles/Vol]6 mmol/L Normal5-15ProKettering Health Dayton HospitalComment on above:Performed By: #### 73450-7, CBCA, CMP #### [facility] ([id number]) [address], [address] [place], [place] [address]Ifuetmz [Mass/Vol]8.7 mg/dLNormal8.5-10.5PKettering Health Main Campus HospitalComment on above:Performed By: #### 28279-1, CBCA, CMP #### [facility] ([id number]) [address], [address] [place], [place] [address]Udduywag [Moles/Vol]103 mmol/CFodzsl98-044IhhBdhvkh [place] HospitalComment on above:Performed By: #### 59977-6, CBCA, CMP #### [facility] ([id number]) [address], [address] [place], [place] [address]EQ9 [Moles/Vol]29 mmol/MXxyske69-05ZdsQhydnePaulding County Hospital Comment on above:Performed By: #### 33306-8, CBCA, CMP #### [facility] ([id number]) [address], [address] [place], [place] [address]Quglxytlsu [Mass/Vol]0.62 mg/dLNormal0.40-1.00Memorial Health SystemComment on above:Result Comment: METHOD TRACEABLE TO IDMS STANDARD Performed By: #### 91666-2, CBCA, CMP #### [facility] ([id number]) [address], [address] [address]dKXF (CKD-EPI) NON-RACE DEPENDENT>90Normal>59ProOhiohealth O'Bleness HospitalComment on above:Result Comment: Reported eGFR is based on the CKD-EPI 2020 equation that does not use a race coefficient.Performed By: #### 39728-9, CBCA, CMP #### [facility] ([id number]) [address], [address] [place], [place] [address]Vqwshbs [Mass/Vol]91 mg/vTCjgtnc19-14ItfYtgtkmMemorial Health System Comment on above:Performed By: #### 38923-9, CBCA, CMP #### [facility] ([id number]) [address], [facility] [address] [place], [place] [address]Upgujrqmj [Moles/Vol]4.3 mmol/LNormal3.5-5.0ProOhiohealth O'Bleness HospitalComment on above:Performed By: #### 93651-9, CBCA, CMP #### [facility] ([id number]) [address], [address] [place], [place] [address]Ehkdgv [Moles/Vol]138 mmol/XOmzsna092-401MpaKswgln [place] HospitalComment on above:Performed By: #### 04950-5, CBCA, CMP #### [facility] ([id number]) [address], [address] [place], [place] [address]Quzd nitrogen [Mass/Vol]12 mg/dLNormal5-27ProMedica [facility]hary HospitalComment on above:Performed By: #### 87861-3, CBCA, CMP #### [facility] ([id number]) [address], [facility] [address] [place], [place] [address]BGPTJLLZ BLOOD COUNTon 21-43-4188Xzdpxkporzk distribution width (RBC) [Ratio]17.2 %High11.5-15.0ProMedica [facility]oudhary HospitalComment on above: Performed By: #### PRIYANK, , CMP #### [facility] ([id number]) [address], [address] [place], [place] [address]Tkznezppep (Bld) [Volume fraction]38.8 %Ovtakg78-11KljVothlq Chelsea HospitalComment on above:Performed By: #### PRIYANK , CMP #### [facility] ([id number]) [address], [address] [place], [place] [address]Scmvulyimt (Bld) [Mass/Vol]12.6 g/rPYkqbme29.7-15.5ProMedica [place] HospitalComment on above:Performed By: #### PRIYANK, , CMP #### [facility] ([id number]) [address], [address] [place], [place] [address]KRR (RBC) [Entitic mass]28.5 fwPijdeb11-24ZydVdgfhl [facility]hary HospitalComment on above:Performed By: #### CBCAriana, , CMP #### [facility] ([id number]) [address], [address] [place], [place] [address]DFWJ (RBC) [Mass/Vol]32.4 g/xARlfscc48-91YpeOltfxe [facility] HospitalComment on above:Performed By: #### CBCAriana, , CMP #### [facility] ([id number]) [address], [address] [place], [place] [address]BHX (RBC) [Entitic vol]88 fDBttzzy76-873JbaDjnxhi [place] HospitalComment on above:Performed By: #### PRIYANK, , CMP #### [facility] ([id number]) [address], [address] [place], [place] [address]Otwayalj mean volume (Bld) [Entitic vol]7.5 fLNormal7-12 ProMWVUMedicine Harrison Community Hospital HospitalComment on above:Performed By: #### PRIYANK, , CMP #### [facility] ([id number]) [address], [address] [place], [place] [address]Dwqxlierm (Bld) [#/Vol]237 10*3/yRPyweqr686-993LriMkbdkt [facility] HospitalComment on above:Performed By: #### PRIYANK, , CMP #### [facility] ([id number]) [address], [address] [place], [place] [address]ZQT COUNT4.41 X10E12/LNormal3.80-5.20[facility] Comment on above:Performed By: #### PRIYANK, , CMP #### [facility] ([id number]) [address], [address] [place], [place] [address]NRV (Bld) [#/Vol]10.1 10*3/uLNormal4.0-11.0ProKettering Health Dayton HospitalComment on above:Performed By: #### PRIYANK, , CMP #### [facility] ([id number]) [address], [address] [place], [place] [address]Lflrxrxsvsf distribution width (RBC) [Ratio]17.4 %High11.5-15.0 ProMWVUMedicine Harrison Community Hospital HospitalComment on above:Performed By: #### 64619-2, CBCAriana, CMP #### [facility] ([id number]) [address], [address] [place], [place] [address]Jelfjjrobm (Bld) [Volume fraction]36.6 %Pxvgjn22-72ZunDrnofv [facility] HospitalComment on above:Performed By: #### 03131-8, CBCA, CMP #### [facility] ([id number]) [address], [address] [place], [place] [address]Oyztmsurqu (Bld) [Mass/Vol]11.9 g/rXInwbtj03.7-15.5ProMedica [facility] HospitalComment on above:Performed By: #### 58768-9, CBCA, CMP #### [facility] ([id number]) [address], [address] [place], [place] [address]EEM (RBC) [Entitic mass]28.7 bjFjkrbe25-87PbiBsuwvp [facility] HospitalComment on above:Performed By: #### 37516-2, CBCA, CMP #### [facility] ([id number]) [address], [address] [place], [place] [address]WZBO (RBC) [Mass/Vol]32.4 g/kIAgfnim46-68GrsPxobqo [facility] HospitalComment on above:Performed By: #### 17318-1, CBCA, CMP #### [facility] ([id number]) [address], [address] [place], [place] [address]WWO (RBC) [Entitic vol]89 fBXqpzjj48-469YatSppixn [facility] HospitalComment on above:Performed By: #### 80198-7, CBCA, CMP #### [facility] ([id number]) [address], [address] [place], [place] [address]Uxqaktrj mean volume (Bld) [Entitic vol]6.9 fLLow7-12ProMedica [facility] HospitalComment on above:Performed By: #### 12015-4, CBCA, CMP #### [facility] ([id number]) [address], [address] [place], [place] [address]Ybwcowqsf (Bld) [#/Vol]212 10*3/fMMavatu142-272JrbZajdys [facility] HospitalComment on above:Performed By: #### 40033-7, CBCA, CMP #### [facility] ([id number]) [address], [address] [place], [place] [address]RYB COUNT4.13 X10E12/LNormal3.80-5.20ProDayton Va Medical Centerca [facility] Comment on above:Performed By: #### 61588-8, CBCA, CMP #### [facility] ([id number]) [address], [address] [place] [address]HIJ (Bld) [#/Vol]10.4 10*3/uLNormal4.0-11.0ProDayton Va Medical Centerca Chelsea HospitalComment on above:Performed By: #### 70671-7, CBCA, CMP #### [facility] ([id number]) [address], [facility] [address] [place], [place] [address]Bettbnbbdbc distribution width (RBC) [Ratio]16.8 %High11.5-15.0 ProMedica [facility] HospitalComment on above:Performed By: #### 19948-5, CBCA, CMP #### [facility] ([id number]) [address], [address] [place], [place] [address]Evrxexqtcw (Bld) [Volume fraction]38.9 %Qvjjoo54-90WumNiztlv [facility] HospitalComment on above:Performed By: #### 11437-4, CBCA, CMP #### [facility] ([id number]) [address], [address] [place], [place] [address]Mdwuegxqbm (Bld) [Mass/Vol]12.7 g/nUMwtvbn47.7-15.5ProMedica [facility] HospitalComment on above:Performed By: #### 58613-8, CBCA, CMP #### [facility] ([id number]) [address], [address] [place], [place] [address]NAS (RBC) [Entitic mass]28.5 ihZksqkv00-54RjrDgvope [facility] HospitalComment on above:Performed By: #### 76770-8, CBCA, CMP #### [facility] ([id number]) [address], [address] [place], [place] [address]ICQQ (RBC) [Mass/Vol]32.5 g/cQRltwqe52-13JdhGsklac [place] HospitalComment on above:Performed By: #### 60688-5, CBCA, CMP #### [facility] ([id number]) [address], [address] [place], [place] [address]CTJ (RBC) [Entitic vol]88 wWXtwxgc78-677LsgLrijgl [facility] HospitalComment on above:Performed By: #### 97117-3, CBCA, CMP #### [facility] ([id number]) [address], [address] [place], [place] [address]Lcshusdp mean volume (Bld) [Entitic vol]7.0 fLNormal7-12 ProMjack hughston memorial hospitala [facility] HospitalComment on above:Performed By: #### 04177-6, CBCA, CMP #### [facility] ([id number]) [address], [address] [place], [place] [address]Stqvqpdns (Bld) [#/Vol]246 10*3/qSWqvdeq877-438TceNwtigl [facility] HospitalComment on above:Performed By: #### 42983-2, CBCA, CMP #### [facility] ([id number]) [address], [address] [place], [place] [address]CYS COUNT4.43 X10E12/LNormal3.80-5.20ProK[facility] Comment on above:Performed By: #### 25366-9, CBCA, CMP #### [facility] ([id number]) [address], [address] [place], [place] [address]TDF (Bld) [#/Vol]9.7 10*3/uLNormal4.0-11.0ProDayton Va Medical Centerca [facility] HospitalComment on above:Performed By: #### 70910-4, CBCA, CMP #### [facility] ([id number]) [address], [address] [place], [place] [address]Qyrkgaaahah distribution width (RBC) [Ratio]17.4 %High11.5-15.0 ProMedica [facility] HospitalComment on above:Performed By: #### 94992-8, CBCA, CMP #### [facility] ([id number]) [address], [address] [place], [place] [address]Fnkplfdioq (Bld) [Volume fraction]38.2 %Ciexfh68-16YdkQjfjmb [place] HospitalComment on above:Performed By: #### 54615-8, CBCA, CMP #### [facility] ([id number]) [address], [address] [place], [place] [address]Kgcsectytz (Bld) [Mass/Vol]12.4 g/sHKasquw05.7-15.5ProMedica [facility] HospitalComment on above:Performed By: #### 09858-0, CBCA, CMP #### [facility] ([id number]) [address], [address] [place], [place] [address]HIP (RBC) [Entitic mass]28.8 zaAeutaj71-92NicUwjpux [facility] HospitalComment on above:Performed By: #### 89653-8, CBCA, CMP #### [facility] ([id number]) [address], [address] [place], [place] [address]PGYB (RBC) [Mass/Vol]32.4 g/oXAgzcfu18-08PweKoghzj [facility] HospitalComment on above:Performed By: #### 49446-7, CBCA, CMP #### [facility] ([id number]) [address], [address] [place] [address]FAL (RBC) [Entitic vol]89 vKVrjjnq51-726FfsAqngoh [facility] HospitalComment on above:Performed By: #### 95035-5, CBCA, CMP #### [facility] ([id number]) [address], [address] [place] [address]Yancwihx mean volume (Bld) [Entitic vol]7.1 fLNormal7-12 [facility] HospitalComment on above:Performed By: #### 25758-5, CBCA, CMP #### [facility] ([id number]) [address], [address] [place] [address]Mqfmrkdfi (Bld) [#/Vol]238 10*3/fGGxdmlr387-961LcoEugmyw [facility] HospitalComment on above:Performed By: #### 83954-8, CBCA, CMP #### [facility] ([id number]) [address], [address] [place] [address]XUQ COUNT4.31 X10E12/LNormal3.80-5.20ProK[facility] Comment on above:Performed By: #### 24084-5, CBCA, CMP #### [facility] ([id number]) [address], [address] [place] [address]BWV (Bld) [#/Vol]7.8 10*3/uLNormal4.0-11.0ProDayton Va Medical Centerca [facility] HospitalComment on above:Performed By: #### 02566-7, CBCA, CMP #### [facility] ([id number]) [address], [address] [place] [address]Prgzrrolvk Coagulation.derived (PPP) [Mass/Vol]on 04-18-2024 HRHZTVEHSJ905 mg/lXZhudzf063-653CjtMnhfex [place] HospitalComment on above: Performed By: #### PRIYANK, 42887-3, CMP #### [facility] ([id number]) [address], [address] [place], [place] [address]WZTTYNFBSK359 mg/yDAdiurr414-638WmvAouiih [place] HospitalComment on above:Performed By: #### 59663-1, CBCA, CMP #### [facility] ([id number]) [address], [address] [place], [place] [address]IEMZPCBRGN619 mg/mKSbysfy685-581AnwAymvau [place] HospitalComment on above:Performed By: #### 52443-5, CBCA, CMP #### [facility] ([id number]) [address], [address] [place], [place] [address]VRKEJSWWIB245 mg/sWDqxqvb846-457AmjOnecbr [place] HospitalComment on above:Performed By: #### 59032-3, CBCA, CMP #### [facility] ([id number]) [address], [address] [place], [place] [address]Mswxdgp Glucometer (BldC) [Mass/Vol]on 57-29-5588Nqkqnpw [Mass/Vol]152 mg/kGFnmh76-00ZwqUsyviuMemorial Health SystemGlucose [Mass/Vol]158 mg/dL Fcgv47-05HniJlhikmMemorial Health SystemHeparin unfractionated Chromogenic method Qn (PPP)on 55-14-6682APKR XA UFH0.32 IU/mLNormal0.30-0.70[facility] Comment on above:Result Comment: Optimal time for testing is 6 hrs post dosage This test is specific for monitoring patients on UFH, and is not recommended for use with other Anti-Xa medications.Performed By: #### PRIYANK, 13753-5, CMP #### [facility] ([id number]) [address], [address] [place], [place] [address]SPVKVLX AND INRon 75-60-1532TNC Coag (PPP) [Relative time]1.0 {INR}Normal0.8-1.1PKettering Health Main Campus HospitalComment on above:Performed By: #### PRIYANK, 09908-9, CMP #### [facility] ([id number]) [address], [address] [place], [place] [address]JZ Coag (PPP) [Time]11.6 sNormal9.8-13.2ProMedTriHealth McCullough-Hyde Memorial Hospitalo HospitalComment on above:Performed By: #### PRIYANK, 79376-1, CMP #### [facility] ([id number]) [address] [facility] [facility] [place], [place] [address]TYU Coag (PPP) [Relative time]1.0 {INR}Normal0.8-1.1ProMedShannon Medical Centeredo HospitalComment on above:Performed By: #### 79849-1, CBCA, CMP #### [facility] ([id number]) [address], [address] [place], [place] [address]UK Coag (PPP) [Time]11.8 sNormal9.8-13.2PMercy Healthedo HospitalComment on above:Performed By: #### 57876-1, CBCA, CMP #### [facility] ([id number]) [address], [address] [place], [place] [address]XVK Coag (PPP) [Relative time]1.0 {INR}Normal0.8-1.1ProMedShannon Medical Centeredo HospitalComment on above:Performed By: #### 60062-2, CBCA, CMP #### [facility] ([id number]) [address], [address] [place], [place] [address]NX Coag (PPP) [Time]11.6 sNormal9.8-13.2ProMedthomas hospital [facility]ary HospitalComment on above:Performed By: #### 59411-5, CBCA, CMP #### [facility] ([id number]) [address], [address] [place] [address]DWW Coag (PPP) [Relative time]1.0 {INR}Normal0.8-1.1PKettering Health Main Campus HospitalComment on above:Performed By: #### 07708-0, CBCA, CMP #### [facility] ([id number]) [address], [address] [place], [place] [address]XW Coag (PPP) [Time]11.3 sNormal9.8-13.2PKettering Health Main Campus HospitalComment on above:Performed By: #### 51100-9, CBCA, CMP #### [facility] ([id number]) [address], [address] [place] [address]rBMO Coag (PPP) [Time]on 90-75-8627bSBG Coag (Bld) [Time]63 s Zsmd58-52IkyNvgmklOhiohealth O'Bleness HospitalComment on above:Performed By: #### PRIYANK, 00511-4, CMP #### [facility] ([id number]) [address], [address] [place], [place] [address]qXFR Coag (Bld) [Time]35 uZtmvrv76-55BueBjingnMemorial Health System Comment on above:Performed By: #### PRIYANK, 75416-2, CMP #### [facility] ([id number]) [address], [address] [place], [place] [address]zODK Coag (Bld) [Time]37 uVczvid54-32EtlIdfredMemorial Health System Comment on above:Performed By: #### 72293-7, CBCA, CMP #### [facility] ([id number]) [address], [address] [place], [place] [address]rXSP Coag (Bld) [Time]37 wNyxctx59-21RthLuorrfMemorial Health System Comment on above:Performed By: #### 22024-0, CBCA, CMP #### [facility] ([id number]) [address] [place], [place] [address]XUU AND AUTO DIFFon 55-51-8086NZNWMCOI BASOPHIL0.1 X10E9/LNormal 0.0-0.2ProMedModoc Medical CenterComment on above:Performed By: #### 51575-0, 90105-7, CMP, 67158-0, CBCA, 28208-5, PINR ####[facility] ([id number])[address] [place] [address]YQUMEMXN NEUTROPHIL7.8 X10E9/LHigh1.5-6.6ProTexas Children'S Hospital The WoodlandsComment on above: Performed By: #### 69862-2, 83638-9, CMP, 82892-2, CBCA, 45266-5, PINR ####[facility] ([id number])[address] [place] [address]Cqjiloetc/100 WBC (Bld)1.4 %NormalProTexas Children'S Hospital The WoodlandsComment on above:Performed By: #### 33323-7, 96526-2, CMP, 19953-8, CBCA, 77205-3, PINR ####[facility] ([id number])[address] [place] [address]Zfzpsllmqug (Bld) [#/Vol]0.4 10*3/uLNormal 0.0-0.4Upper Valley Medical CenterComment on above:Performed By: #### 67820-7, 31866-7, CMP, 81141-3, CBCA, 71631-5, PINR ####[facility] ([id number])[address] [place] [address]Ygwnzdgtfti/100 WBC (Bld)4.1 %NormalProTexas Children'S Hospital The WoodlandsComment on above:Performed By: #### 99563-0, 95884-6, CMP, 51649-2, CBCA, 20836-6, PINR ####[facility] ([id number])[address] [place] [address] Erythrocyte distribution width (RBC) [Ratio]17.5 %High11.5-15.0Upper Valley Medical CenterComment on above:Performed By: #### 15003-3, 38648-7, CMP, 16619-6, CBCA, 12327-5, PINR ####[facility] ([id number])[address] [place] [address]Sirhyerktt (Bld) [Volume fraction]39.1 % Rejqvz16-78GlbZjmzpiTexas Children'S Hospital The WoodlandsComment on above:Performed By: #### 90435- 4, 35634-0, CMP, 13224-7, CBCA, 69301-9, PINR ####[facility] ([id number])[address] [place] [address]Fextsyzltp (Bld) [Mass/Vol]13.0 g/nXSxfdfl34.7-15.5PHolzer HospitalComment on above: Performed By: #### 36502-6, 11687-1, CMP, 53959-4, CBCA, 90214-2, PINR ####[facility] ([id number])[address] [place] [address]Wazljpebsit (Bld) [#/Vol]1.1 10*3/uLNormal1.0-3.5PHolzer HospitalComment on above:Performed By: #### 51851-6, 24894-3, CMP, 69810-6, CBCA, 16554-8, PINR ####[facility] ([id number])[address] [place] [address]Dtyvjukzawp/100 WBC (Bld)11.4 %Normal ProMedicOjai Valley Community HospitalComment on above:Performed By: #### 08846-9, 31957-9, CMP, 59842-2, CBCA, 19915-3, PINR ####[facility] ([id number])[address] [place] [address]IPY (RBC) [Entitic mass]29.0 pg Vwobxq74-65CihNfgnnyTexas Children'S Hospital The WoodlandsComment on above:Performed By: #### 61011- 4, 09003-7, CMP, 01903-6, CBCA, 26428-1, PINR ####[facility] ([id number])[address] [place] [address]VIUQ (RBC) [Mass/Vol]33.2 g/gJSrioog62-63LqmMiukjeTexas Children'S Hospital The WoodlandsComment on above: Performed By: #### 06588-6, 52094-2, CMP, 03293-8, CBCA, 40912-7, PINR ####[facility] ([id number])[address] [place] [address] 03279YNH (RBC) [Entitic vol]87 nIDkwwwm19-226JyxYeqfle Fremont HospitalComment on above:Performed By: #### 11147-9, 06216-6, CMP, 33568-8, CBCA, 45438-7, PINR ####[facility] ([id number])[address] [place] [address] 69512Tgciapmhd (Bld) [#/Vol]0.5 10*3/uLNormal 0-0.9Upper Valley Medical CenterComment on above:Performed By: #### 11752-6, 93838-2, CMP, 75885-3, CBCA, 20282-4, PINR ####[facility] ([id number])[address] [place], [place] [id number]/100 WBC (Bld)4.9 %NormalProTexas Children'S Hospital The WoodlandsComment on above:Performed By: #### 94559-4, 34905-9, CMP, 19162-7, CBCA, 65250-6, PINR ####[facility] ([id number])[address] [place] [address] Neutrophils/100 WBC (Bld)78.2 %NormalProTexas Children'S Hospital The WoodlandsComment on above: Performed By: #### 52328-6, 66899-2, CMP, 57518-1, CBCA, 50212-3, PINR ####[facility] ([id number])[address] [place] [address] 40585Jtirqkwc mean volume (Bld) [Entitic vol]6.9 fLLow7-12 [facility] HospitalComment on above:Performed By: #### 67237-2, 50164-7, CMP, 82441-2, CBCA, 18350-7, PINR ####[facility] ([id number])[address] [place] [address] 04852Zyqbitjpn (Bld) [#/Vol]316 10*3/wLVezdst963-249SpuIbflud Fremont HospitalComment on above:Performed By: #### 24279-9, 44355-2, CMP, 60798-4, CBCA, 49318-3, PINR ####[facility] ([id number])[address] [place] [address] 05232OPF COUNT4.47 X10E12/LNormal3.80-5.20ProTexas Children'S Hospital The WoodlandsComment on above: Performed By: #### 60986-4, 34392-5, CMP, 68801-6, CBCA, 83413-2, PINR ####[facility] ([id number])[address] [place] [address] 73997YLG (Bld) [#/Vol]10.0 10*3/uLNormal4.0-11.0ProTexas Children'S Hospital The WoodlandsComment on above:Performed By: #### 90939-3, 79959-5, CMP, 71151-2, CBCA, 60775-6, PINR ####[facility] ([id number])[address] [place] [address], [place], [place] [address]BGRSXCOACYTLF METABOLIC PANELon 98-13-1976Scnwpbx [Mass/Vol]3.4 g/dLNormal3.2-5.3PPaulding County Hospital Comment on above:Performed By: #### 47294-1, CBCA, CMP #### [facility] ([id number]) [address], [address] [place], [place] [address]YSC [Catalytic activity/Vol]85 U/MJcyzea55-713WejSuavmm [place]edo HospitalComment on above:Performed By: #### 07720-5, CBCA, CMP #### [facility] ([id number]) [address], [address] [place], [place] [address]QQA [Catalytic activity/Vol]9 U/LNormal0-31PKettering Health Main Campus HospitalComment on above:Performed By: #### 25857-1, CBCA, CMP #### [facility] ([id number]) [address], [address] [place], [place] [address]Essyi gap [Moles/Vol]7 mmol/LNormal5-15[facility] Comment on above:Performed By: #### 51161-2, CBCA, CMP #### [facility] ([id number]) [address], [address] [place], [place] [address]UKY [Catalytic activity/Vol]21 U/LNormal0-41ProKettering Health Dayton HospitalComment on above:Performed By: #### 33310-5, CBCA, CMP #### [facility] ([id number]) [address], [address] [place], [place] [address]Lysizphmi [Mass/Vol]0.3 mg/dLNormal0.3-1.2ProMedTriHealth Bethes[facility] North Hospital HospitalComment on above:Performed By: #### 82034-1, CBCA, CMP #### [facility] ([id number]) [address], [address] [place], [place] [address]Difaisc [Mass/Vol]8.5 mg/dLNormal8.5-10.5PPaulding County HospitalComment on above:Performed By: #### 46931-6, CBCA, CMP #### [facility] ([id number]) [address], [address] [place], [place] [address]Nvvvxyow [Moles/Vol]102 mmol/BQnhgnf01-473TjuAqhdhf [place] HospitalComment on above:Performed By: #### 88317-7, CBCA, CMP #### [facility] ([id number]) [address], [address] [place], [place] [address]TN3 [Moles/Vol]29 mmol/HPjnqwh12-68SkyDmjpvi [facility] Comment on above:Performed By: #### 21536-4, CBCA, CMP #### [facility] ([id number]) [address], [address] [place], [place] [address]Navavmdyrh [Mass/Vol]0.76 mg/dLNormal0.40-1.00ProOhiohealth O'Bleness HospitalComment on above:Result Comment: METHOD TRACEABLE TO IDMS STANDARD Performed By: #### 95142-3, CBCA, CMP #### [facility] ([id number]) [address], [address] [place], [place] [address]SPK/1.73 sq M.predicted among non-blacks MDRD (S/P/Bld) [Vol rate/Area]87 mL/min/{1.73_m2}Normal>59ProOhiohealth O'Bleness HospitalComment on above: Result Comment: Reported eGFR is based on the CKD-EPI 2020 equation that does not use a race coefficient.Performed By: #### 09743-7, CBCA, CMP #### [facility] ([id number]) [address], [address] [place], [place] [address]Facspnq [Mass/Vol]146 mg/eSYldu65-35IexDtpdkgOhiohealth O'Bleness Hospital Comment on above:Performed By: #### 89991-4, CBCA, CMP #### [facility] ([id number]) [address], [address] [place], [place] [address]Emgxblrza [Moles/Vol]4.4 mmol/LNormal3.5-5.0ProKettering Health Dayton HospitalComment on above:Performed By: #### 33131-6, CBCA, CMP #### [facility] ([id number]) [address], [address] [place], [place] [address]Fewjawk [Mass/Vol]6.2 g/dLNormal6.0-8.0[facility] Comment on above:Performed By: #### 54582-1, CBCA, CMP #### [facility] ([id number]) [address], [address] [place], [place] [address]Ktxgkb [Moles/Vol]138 mmol/ARmwkoa520-299HjuQwvspj [place] HospitalComment on above:Performed By: #### 98120-2, CBCA, CMP #### [facility] ([id number]) [address], [address] [place], [place] [address]Iklc nitrogen [Mass/Vol]13 mg/dLNormal5-27ProOhiohealth O'Bleness HospitalComment on above:Performed By: #### 33241-7, CBCA, CMP #### [facility] ([id number]) [address], [address] [place], [place] [address]Nshfjjp [Mass/Vol]3.5 g/dLNormal3.2-5.3ProMedModoc Medical CenterComment on above:Performed By: #### 99599-6, 53768-0, CMP, 86740-7, CBCA, 57341-8, PINR ####[facility] ([id number])[address] [place] [address]KLL [Catalytic activity/Vol]89 U/LNormal 39-130ProTexas Children'S Hospital The WoodlandsComment on above:Performed By: #### 12624-9, 43186-4, CMP, 19030-9, CBCA, 77503-8, PINR ####[facility] ([id number])[address] [place] [address], [place] [address]COZ [Catalytic activity/Vol]12 U/LNormal0-31ProMedModoc Medical CenterComment on above: Performed By: #### 21739-7, 25900-2, CMP, 55116-8, CBCA, 39796-6, PINR ####[facility] ([id number])[address] [place] [address]Vqdhj gap [Moles/Vol]11 mmol/LNormal5-15ProTexas Children'S Hospital The WoodlandsComment on above:Performed By: #### 42583-9, 77133-1, CMP, 27661-2, CBCA, 31731-5, PINR ####[facility] ([id number])[address] [place] [address]99QSE [Catalytic activity/Vol]21 U/LNormal0-41 [facility] Memorial HospitalComment on above:Performed By: #### 98910-1, 16171-9, CMP, 12044-9, CBCA, 99265-7, PINR ####[facility] ([id number])[address] [place] [address]Vjikmicck [Mass/Vol]0.5 mg/dL Normal0.3-1.2ProMedModoc Medical CenterComment on above:Performed By: #### 11108-9, 27034-6, CMP, 31462-4, CBCA, 17612-9, PINR ####[facility] ([id number])[address] [place] [address]Wjoxgwx [Mass/Vol]9.0 mg/dLNormal8.5-10.5ProMedica Yale HospitalComment on above: Performed By: #### 82720-1, 51183-5, CMP, 07091-5, CBCA, 70988-9, PINR ####[facility] ([id number])[address] [place] [address], [place] [address]Xrwckqis [Moles/Vol]100 mmol/LInbvym93-623NhdBgjrmfTexas Children'S Hospital The WoodlandsComment on above:Performed By: #### 29233-2, 45461-2, CMP, 54172-5, CBCA, 48237-8, PINR ####[facility] ([id number])[address] [place] [address], [place] [address]ZO2 [Moles/Vol]24 mmol/TMdxyvf05-11 ProMAnderson SanatoriumComment on above:Performed By: #### 15129-5, 13064-0, CMP, 93719-6, CBCA, 27424-9, PINR ####[facility] ([id number])[address] [place] [address], [place] [address]Alaqrkrclb [Mass/Vol]0.97 mg/dL Normal0.40-1.00ProTexas Children'S Hospital The WoodlandsComment on above:Result Comment: METHOD TRACEABLE TO IDMS STANDARDPerformed By: #### 98273-0, 93725-3, CMP, 13209-0, CBCA, 19257-5, PINR ####[facility] ([id number])[address] [place] [address], [place] [address]KBO/1.73 sq M.predicted among non-blacks MDRD (S/P/Bld) [Vol rate/Area]65 mL/min/{1.73_m2}Normal>59ProTexas Children'S Hospital The WoodlandsComment on above:Result Comment: Reported eGFR is based on theCKD-EPI 2020 equation that doesnot use a race coefficient.Performed By: #### 41383-5, 09805-9, CMP, 55571-5, CBCA, 39956-4, PINR ####[facility] ([id number])[address] [place] [address], [place] [address]Bgigqoj [Mass/Vol]151 mg/oFZamq15-54OvfEsksoaTexas Children'S Hospital The WoodlandsComment on above:Performed By: #### 40313-1, 55334-6, CMP, 41431-1, CBCA, 16040-4, PINR ####[facility] ([id number])[address] [place] [address], [place] [address]Xwpaqdlyu [Moles/Vol]4.2 mmol/LNormal3.5-5.0[facility] Comment on above:Performed By: #### 33974-8, 57309-8, CMP, 12953-0, CBCA, 08095- 5, PINR ####[facility] ([id number])[address] [place] [address]Bxndfuj [Mass/Vol]7.0 g/dLNormal6.0-8.0ProTexas Children'S Hospital The WoodlandsComment on above:Performed By: #### 90549-1, 62898-4, CMP, 53028-1, CBCA, 89281-8, PINR ####[facility] ([id number])[address] [place] [address]Zhzrvc [Moles/Vol]135 mmol/ZDhcjgh415-045 ProMAnderson SanatoriumComment on above:Performed By: #### 00637-9, 21248-5, CMP, 48549-1, CBCA, 50575-9, PINR ####[facility] ([id number])[address] [place] [address], [place] [address]Ftjk nitrogen [Mass/Vol]17 mg/dL Normal5-27ProTexas Children'S Hospital The WoodlandsComment on above:Performed By: #### 27211-6, 88368-6, CMP, 45908-5, CBCA, 21495-1, PINR ####[facility] ([id number])[address] [place] [address]EL CTA ABD AORTA W RUNOFFon 82-29-6313WO CTA ABD AORTA W RUNOFFNormalProTexas Children'S Hospital [facility]lands Fibrin D-dimer DDU (PPP) [Mass/Vol]on 04-17-2024D XBUYQ0330 ng/mL DDUHigh<255 Pro[facility]ripp[facility] Memorial HospitalComment on above:Result Comment: Results >=255ng/mL DDU: Results may beindicative of the presence of VTE. The useof the Wells score and further diagnostictests should be considered. Elevated D-Dimerlevels can alsobe associated with DIC,neoplasm, , trauma and liver disease.Elevated levels of rheumatoid factor may leadto an overestimation of the D-Dimer level.Performed By: #### 32173-2, 91974-1, CMP, 90244-9, CBCA, 65559-0, PINR ####[facility] ([id number])[address] [place] [address]Molziueywx Coagulation.derived (PPP) [Mass/Vol]on 34-24-3224HOUAEXOXLB307 mg/aKEmmthg935-786RteEmgkzp [place] HospitalComment on above:Performed By: #### 65988-7, CBCA, CMP #### [facility] ([id number]) [address], [address] [place], [place] [address]FUHGUTJXCV221 mg/zUCjcuev094-737MqtEczqpn [place] HospitalComment on above:Performed By: #### 66881-1, 07847-6, PINR #### [facility] ([id number]) [address], [address] [place], [place] [address]Vbcyeyn (P nathalie) [Moles/Vol]on 90-67-8421UTYOYQR W/REFLEX0.5 mmol/LNormal0.4-2.0ProKettering Health Dayton HospitalComment on above:Result Comment: Result did not trigger repeat Lactate, re-order if needed.Performed By: #### 49864-6, CBCA, CMP #### [facility] ([id number]) [address], [address] [place], [place] [address]HJDSCWUODnx 78-56-7387Brlaaopqk [Mass/Vol]1.9 mg/dLNormal1.8-2.6 [facility]ica Chelsea HospitalComment on above:Performed By: #### 71753-0, CBCA, CMP #### [facility] ([id number]) [address], [address] [place], [place] [address]Xwyxrspgdio peptide B [Mass/Vol]on 85-53-4165Yxsmegyeqjc peptide B (Bld) [Mass/Vol]99 pg/mLNormal<100.0ProDayton Va Medical Centerca Scripps Memorial HospitalComment on above:Performed By: #### 78142-3, 07082-5, CMP, 04833-8, CBCA, 16831-9, PINR ####[facility] ([id number])[address] [place] [address] 14263JPMRFFWQRGya 97-60-4926Ryifysdnd [Mass/Vol]4.1 mg/dLNormal 2.4-4.9ProDayton Va Medical Centerca Chelsea HospitalComment on above:Performed By: #### 35020-8, CBCA, CMP #### [facility] ([id number]) [address], [address] [place], [place] [address]TORYAWE AND INRon 08-71-7844QVU Coag (PPP) [Relative time]1.0 {INR}Normal0.8-1.1ProMedTriHealth Bethesda North Hospital HospitalComment on above:Performed By: #### 07077-5, CBCA, CMP #### [facility] ([id number]) [address], [address] [place], [place] [address]LZ Coag (PPP) [Time]11.7 sNormal9.8-13.2ProMedTriHealth Bethesda North Hospital HospitalComment on above:Performed By: #### 85393-7, CBCA, CMP #### [facility] ([id number]) [address], [address] [place], [place] [address]EL Coag (PPP) [Time]11.6 sNormal9.8-13.2PPaulding County HospitalComment on above:Performed By: #### 52766-4, CBCA, CMP #### [facility] ([id number]) [address], [address] [place], [place] [address]VNC Coag (PPP) [Relative time]1.1 {INR}Normal0.8-1.1PPaulding County HospitalComment on above:Performed By: #### 77529-2, 92474-5, PINR #### [facility] ([id number]) [address], [address] [place], [place] [address]NI Coag (PPP) [Time]13.3 sHigh9.8-13.2PPaulding County Hospital Comment on above:Performed By: #### 27393-6, 60188-1, PINR #### [facility] ([id number]) [address], [address] [place], [place] [address]LQZ Coag (PPP) [Relative time]1.1 {INR}Normal0.8-1.1PHolzer HospitalComment on above:Performed By: #### 82842-0, 80717-5, CMP, 01978-8, CBCA, 45383-9, PINR ####[facility] ([id number])[address] [place] [address]WI Coag (PPP) [Time]12.8 sNormal 9.8-13.2PHolzer HospitalComment on above:Result Comment: NEW REFERENCE RANGEPerformed By: #### 05366-3, 38759-1, CMP, 37204-4, CBCA, 15052-4, PINR ####[facility] ([id number])[address] [place] [address]Ehizlxur I.cardiac High sensitivity method [Mass/Vol]on 51 HOUR TROP I, HIGH SENSITIVITY5 ng/LNormal<16ProTexas Children'S Hospital The WoodlandsComment on above:Performed By: #### 60021-3 ####[facility] ([id number])[address] [place] [address]TOCSUDWL I, HIGH SENSITIVITY4 ng/LNormal<16ProTexas Children'S Hospital The WoodlandsComment on above: Performed By: #### 97021-2, 28709-6, CMP, 05944-7, CBCA, 17804-3, PINR ####[facility] ([id number])[address] [place] [address]fXHZ Coag (PPP) [Time]on 76-33-0435eIPD Coag (Bld) [Time] 53 xFodf72-86GvlIzbogvMemorial Health SystemComment on above:Performed By: #### 49896- 9, CBCA, CMP #### [facility] ([id number]) [address], [address] [place], [place] [address]eHCM Coag (Bld) [Time]117 sCritically snrm63-50VlvByhkgvMemorial Health SystemComment on above:Performed By: #### 70192-6, 10560-2, PINR #### [facility] ([id number]) [address], [address] [place], [place] [address]wKGX Coag (Bld) [Time]41 fOykc72-19LcyZjllwoUpper Valley Medical Center Comment on above:Result Comment: NEW REFERENCE RANGEPerformed By: #### 80319-0, 24685-1, CMP, 93982-6, CBCA, 32821-4, PINR ####[facility] ([id number])[address] [place] [address]YZFO/FLU A+B/RSV by NAAT/Molecularon 88-56-1449XBIV/FLU A+B/RSV by NAAT/MolecularNormalProMedica Yale HospitalComment on above:Performed By: #### COVFLR ####[facility] ([id number])[address] [place] [address], [place] [address]TFXLP METABOLIC PANLon 92-46-8302Bqmid gap [Moles/Vol]10 mmol/LNormal5-15ProTexas Children'S Hospital The WoodlandsComment on above:Performed By: #### KYLE YOST, 33287-5 ####[facility] ([id number])[address] [place] [address], [place] [address]Wswshij [Mass/Vol]9.1 mg/dLNormal8.5-10.5PHolzer HospitalComment on above:Performed By: #### KYLE YOST, 55636-5 ####[facility] ([id number])[address] [place] [address], [place] [address]Tgtnsidn [Moles/Vol]104 mmol/QXfqopf11-189VfrMianpgTexas Children'S Hospital The WoodlandsComment on above:Performed By: #### KYLE YOST, 44526-4 ####[facility] ([id number])[address] [place] [address], [place] [address]XC0 [Moles/Vol]21 mmol/CAmy62-71VadWfurswHolzer HospitalComment on above:Performed By: #### KYLE YOST, 76357-8 ####[facility] ([id number])[address] [place] [address], [place] [address]Yyvqqmznvb [Mass/Vol]0.97 mg/dLNormal 0.40-1.00[facility] Valley Medical CenterComment on above:Result Comment: METHOD TRACEABLE TO IDMS STANDARDPerformed By: #### KYLE YOST, 43498-2 ####[facility] ([id number])[address] [place] [address] 524[address]QSZ/1.73 sq M.predicted among non-blacks MDRD (S/P/Bld) [Vol rate/Area]65 mL/min/{1.73_m2}Normal>59ProTexas Children'S Hospital The WoodlandsComment on above:Result Comment: Reported eGFR is based on theCKD-EPI 2020 equation that doesnot use a race coefficient.Performed By: #### KYLE YOST, 84777-1 ####[facility] ([id number])[address] [place] [address], [place] [address]Gdnmczy [Mass/Vol]115 mg/lOHqtf80-29JelWdsqyyTexas Children'S Hospital The WoodlandsComment on above:Performed By: #### KYLE YOST, 75638-1 ####[facility] ([id number])[address] [place] [address]Fqsqytqro [Moles/Vol]4.3 mmol/LNormal 3.5-5.0ProTexas Children'S Hospital The WoodlandsComment on above:Performed By: #### KYLE YOST, 10033-6 ####[facility] ([id number])[address] [place] [address], [place] [address]Yhxoud [Moles/Vol]135 mmol/MIxrvmq689-441WtbStiwek Fremont HospitalComment on above:Performed By: #### KYLE YOST, 51906-9 ####[facility] ([id number])[address] [place] [address] 22827Rfrs nitrogen [Mass/Vol]17 mg/dLNormal5-27ProTexas Children'S Hospital The WoodlandsComment on above:Performed By: #### KYLE YOST, 59733-9 ####[facility] ([id number])[address] [place] [address], [place] [address]IOA AND AUTO DIFF on 20-89-9430BGCPNHRV BASOPHIL0.1 X10E9/LNormal0.0-0.2PHolzer Hospital Comment on above:Performed By: #### KYLE YOST, 59039-7 ####[facility] ([id number])[address] [place] [address]124ZXPGIPEG NEUTROPHIL6.7 X10E9/LHigh1.5-6.6ProTexas Children'S Hospital The WoodlandsComment on above: Performed By: #### KYLE YOST, 21292-5 ####[facility] ([id number])[address] [place] [address] 31492Bcjqhgkar/100 WBC (Bld)1.5 %NormalProTexas Children'S Hospital The WoodlandsComment on above:Performed By: #### KYLE YOST, 47565-1 ####[facility] ([id number])[address] [place] [address] 00706Ubqajxkruzm (Bld) [#/Vol]0.5 10*3/uLHigh 0.0-0.4ProTexas Children'S Hospital The WoodlandsComment on above:Performed By: #### KYLE YOST, 62012-4 ####[facility] ([id number])[address] [place] [address] 60531Amdnzqqeipr/100 WBC (Bld)5.3 %NormalUpper Valley Medical CenterComment on above:Performed By: #### KYLE YOST, 69986-3 ####[facility] ([id number])[address] [place] [address]Gcxlirzwuni distribution width (RBC) [Ratio]16.9 %High11.5-15.0ProTexas Children'S Hospital The WoodlandsComment on above:Performed By: #### [address], 40128-1 ####[facility] ([id number])[address] [place] [address] 31818Hglxygerit (Bld) [Volume fraction]39.4 %Cbdvyx10-67 [facility] Memorial HospitalComment on above:Performed By: #### KYLE YOST, 10881-7 ####[facility] ([id number])[address] [place] [address] 88224Fobmjifowv (Bld) [Mass/Vol]12.9 g/kEKskvob97.7-15.5 [facility] HospitalComment on above:Performed By: #### KYLE YOST, 08128-2 ####[facility] ([id number])[address] [place] [address] 00754Sgwejnayhba (Bld) [#/Vol]1.9 10*3/uLNormal1.0-3.5Pro[facility] Memorial HospitalComment on above:Performed By: #### KYLE YOST, 94377-4 ####[facility] ([id number])[address] [place] [address] 10139Altmkenevmf/100 WBC (Bld)18.9 %NormalProTexas Children'S Hospital The WoodlandsComment on above:Performed By: #### KYLE YOST, 39514-0 ####[facility] ([id number])[address] [place] [address] 59[address]JGW (RBC) [Entitic mass]29.0 wcKyyxls66-17IkcPihhvfUpper Valley Medical CenterComment on above:Performed By: #### KYLE YOST, 22750-2 ####[facility] ([id number])[address] [place] [address] 05265WGZG (RBC) [Mass/Vol]32.7 g/sBOsydyr06-04OcvAswzsiTexas Children'S Hospital The WoodlandsComment on above: Performed By: #### KYLE YOST, 60013-0 ####[facility] ([id number])[address] [place] [address]46[address]FMM (RBC) [Entitic vol]89 oJBramcl03-417EdgDeqdse Fremont HospitalComment on above: Performed By: #### KYLE YOST, 03253-0 ####[facility] ([id number])[address] [place] [address] 82803Urgqnjuqa (Bld) [#/Vol]0.7 10*3/uLNormal0-0.9Upper Valley Medical CenterComment on above: Performed By: #### KYLE YOST, 27960-6 ####[facility] ([id number])[address] [place] [address] 68648Tjsnvsllf/100 WBC (Bld)6.7 %NormalProTexas Children'S Hospital The WoodlandsComment on above:Performed By: #### KYLE YOST, 93850-3 ####[facility] ([id number])[address] [place] [address] 12856Dqybmnqgumz/100 WBC (Bld)67.6 %Normal ProMAnderson SanatoriumComment on above:Performed By: #### KYLE YOST, 40650-7 ####[facility] ([id number])[address] [place] [address] 94[address]Giaboohx mean volume (Bld) [Entitic vol]7.2 fLNormal7-12 [facility] Valley Medical CenterComment on above:Performed By: #### KYLE YOST, 48375-7 ####[facility] ([id number])[address] [place] [address] 11720Sflqtyxex (Bld) [#/Vol]292 10*3/hHLevmqk831-588HfsUojobr [facility]ont HospitalComment on above:Performed By: #### CBCAriana, BMP, 37213-2 ####[facility] ([id number])[address] [place] [address] 00875KBL COUNT4.45 X10E12/LNormal3.80-5.20ProTexas Children'S Hospital The WoodlandsComment on above:Performed By: #### PRIYANK, BMP, 83622-6 ####[facility] ([id number])[address] [place] [address] 82786RDM (Bld) [#/Vol]9.9 10*3/uLNormal4.0-11.0Upper Valley Medical CenterComment on above:Performed By: #### KYLE YOST, 15694-3 ####[facility] ([id number])[address] [place] [address] [id number] CTA ABD AND PELVISon [id number] CTA ABD AND PELVISNormalProDayton Va Medical Centerca Scripps Memorial HospitalCT CTA CHESTon [id number] CTA CHESTNormalUpper Valley Medical CenterTroponin I.cardiac High sensitivity method [Mass/Vol]on HOUR TROP I, HIGH SENSITIVITY4 ng/LNormal<16ProTexas Children'S Hospital The WoodlandsComment on above:Performed By: #### [id number] ####[facility] ([id number])[address] [place] [address] 15375ATBEFSVD I, HIGH SENSITIVITY3 ng/LNormal<16ProTexas Children'S Hospital The WoodlandsComment on above:Performed By: #### KYLE YOST, 74913-6 ####[facility] ([id number])[address] [place] [address] 13307XFOS/FLU A+B/RSV by NAAT/Molecularon 57-50-8347OSPB/FLU A+B/RSV by NAAT/MolecularNormalUpper Valley Medical CenterComment on above: Performed By: #### COVFLR ####[facility] ([id number])[address] [place] [address] 04047TQ CHEST 1 VWon [id number] CHEST 1 VW NormalUpper Valley Medical CenterBasi Metabolic PanelOrdered By: Luis Fernando Strauss on 22-68-6747Xdevm gap [Moles/Vol]10.8 mmol/LNormal6.0-15.0Adena Pike Medical CenterComment on above:Performed By: #### BMP #### [facility] [address] [place] [address] USACalcium [Mass/Vol]8.9 mg/dLNormal8.6-10.3FAshtabula General HospitalComment on above:Performed By: #### BMP #### [facility] [address] [place] [id number] USAChloride [Moles/Vol]98 mmol/HOazctg89-416JpaivvaplAdena Pike Medical CenterComment on above:Performed By: #### BMP #### [facility] [address] [place] [address] USACO2 [Moles/Vol]35.0 mmol/LHigh21.0-31.0Adena Pike Medical CenterComment on above:Performed By: #### BMP #### [facility] [address] [place] [address] USACreatinine [Mass/Vol]0.89 mg/dLNormal0.60-1.20Adena Pike Medical CenterComment on above:Performed By: #### BMP #### [facility] [address] [place] [address] USAGlucose [Mass/Vol]95 mg/kQXwkrne07-929FapivmjaaAdena Pike Medical CenterComment on above:Result Comment: Random Glucose Reference Range is dependent on time and content of last meal. Glucose of more than 200 mg/dL in a nonstressed, ambulatory subject supports the diagnosis of Diabetes Mellitus. ADA recommended reference rangePerformed By: #### BMP #### [facility] [address] [place] [address] USAADA recommended reference rangeRandom Glucose Reference Range is dependent on time and content of last meal. Glucose of more than 200 mg/dL in a nonstressed, ambulatory subject supports the diagnosisof Diabetes Mellitus.Potassium [Moles/Vol]4.8 mmol/LNormal3.5-5.1FAshtabula General HospitalComment on above:Performed By: #### BMP #### [facility] [address] [id number] USASodium [Moles/Vol]139 mmol/IClgmxu799-974XdugbvpysAdena Pike Medical CenterComment on above:Performed By: #### BMP #### [place] [address] USAUrea nitrogen [Mass/Vol]11 mg/dLNormal7-Aden[facility] Pike Medical CenterComment on above:Performed By: #### BMP #### [place] [address] USABasic Metabolic Panelon 63-33-0941Zhsubqovxy Clr Calc Errjupjv93.49NormGulf Breeze Hospital Physician GroupComment on above:Result Comment: PERFORMED BY: [place] [address] PATHOLOGIST TETRYL WRINGER OPERATOR JOSÉ MIGUEL RON M.D.Performed By: #### BMP #### [place] [address] USAGFR/1.73 sq M.predicted MDRD (S/P/Bld) [Vol rate/Area] mL/min/{1.73_m2}NormalThe [facility] Physician [facility] Grove CenterComment on above:Performed By: #### BMP #### [place] [address] USAComplete Blood Count Auto DiffOrdered By: Ziggy Barraza on 90-54-9771Usfjdfhaw (Bld) [#/Vol]0.1 10*3/uLNormal0.0-0.2FAshtabula General HospitalComment on above:Result Comment: PERFORMED BY: [place] [address] PATHOLOGIST TETRYL WRINGER OPERATOR JOSÉ MIGUEL RON M.D.Performed By: #### RESP PANEL UPP., BIOFIRECOVNOTDE #### [place] [address] USABasophils/100 WBC (Bld)2.4 %Normal.Aden[facility] Pike Medical CenterComment on above:Performed By: #### RESP PANEL UPP., BIOFIRECOVNOTDE #### [place] [address] USAEosinophils (Bld) [#/Vol]0.2 10*3/uLNormal0.0-0.45 [facility] Pike Medical CenterComment on above:Performed By: #### RESP PANEL UPP., BIOFIRECOVNOTDE #### [place] [address] USAEosinophils/100 WBC (Bld)4.2 %Normal.Aden[facility] Pike Medical CenterComment on above:Performed By: #### RESP PANEL UPP., BIOFIRECOVNOTDE #### [place] [address] USAErythrocyte distribution width (RBC) [Ratio]19.9 %High 11.9-15.3FAshtabula General HospitalComment on above:Performed By: #### RESP PANEL UPP., BIOFIRECOVNOTDE #### [place] [address] USAHematocrit (Bld) [Volume fraction]27.5 %Low34.0-46.4 [facility] Pike Medical CenterComment on above:Performed By: #### RESP PANEL UPP., BIOFIRECOVNOTDE #### [place] [address] USAHemoglobin (Bld) [Mass/Vol]8.9 g/dLLow11.8-15.4FAshtabula General HospitalComment on above:Performed By: #### RESP PANEL UPP., BIOFIRECOVNOTDE #### [place] [address] USALymphocytes (Bld) [#/Vol]1.0 10*3/uLNormal1.00-4.8 [facility]ike Medical CenterComment on above:Performed By: #### RESP PANEL UPP., BIOFIRECOVNOTDE #### [place] [address] USALymphocytes/100 WBC (Bld)21.7 %Normal.Aden[facility] Pike Medical CenterComment on above:Performed By: #### RESP PANEL UPP., BIOFIRECOVNOTDE #### [address]H (RBC) [Entitic mass]30.5 kkYpxqff29.7-34.3FAshtabula General HospitalComment on above:Performed By: #### RESP PANEL UPP., BIOFIRECOVNOTDE #### [place] [address] USAMCV (RBC) [Entitic vol]93.9 nMTwfgbt51-266GkgcyvslgAdena Pike Medical CenterComment on above:Performed By: #### RESP PANEL UPP., BIOFIRECOVNOTDE #### [place] [address] USAMonocytes (Bld) [#/Vol]0.3 10*3/uLNormal0.0-0.8Aden[facility] Pike Medical CenterComment on above:Performed By: #### RESP PANEL UPP., BIOFIRECOVNOTDE #### [place] [address] USAMonocytes/100 WBC (Bld)7.3 %Normal.Aden[facility] Pike Medical CenterComment on above:Performed By: #### RESP PANEL UPP., BIOFIRECOVNOTDE #### [place] [address] USANeutrophils (Bld) [#/Vol]3.0 10*3/uLNormal1.8-7.7FAshtabula General HospitalComment on above:Performed By: #### RESP PANEL UPP., BIOFIRECOVNOTDE #### [place] [address] USANeutrophils/100 WBC (Bld)64.4 %Normal.Aden[facility] Pike Medical CenterComment on above:Performed By: #### RESP PANEL UPP., BIOFIRECOVNOTDE #### [place] [address] USAPlatelet mean volume (Bld) [Entitic vol]7.7 fLNormal 6.3-10.7FAshtabula General HospitalComment on above:Performed By: #### RESP PANEL UPP., BIOFIRECOVNOTDE #### [facility] [address] [place] [address] USAPlatelets (Bld) [#/Vol]232 10*3/rFOyeoix666-545ZjtzuctknAdena Pike Medical CenterComment on above:Performed By: #### RESP PANEL UPP., BIOFIRECOVNOTDE #### [place] [address] USARBC (Bld) [#/Vol]2.93 10*6/uLLow3.60-5.00Adena Pike Medical CenterComment on above:Performed By: #### RESP PANEL UPP., BIOFIRECOVNOTDE #### [place] [address] USAWBC (Bld) [#/Vol]4.7 10*3/uLNormal3.8-11.6FAshtabula General HospitalComment on above:Performed By: #### RESP PANEL UPP., BIOFIRECOVNOTDE #### [place] [address] USAComplete Blood Count Auto Diffon 66-81-0654Syii Corpuscular HGB Conc32.5 g/kNEqtjma37.0-35.0The [facility] Physician GroupComment on above:Performed By: #### RESP PANEL UPP., BIOFIRECOVNOTDE #### [place] [address] USANRBC%0.2 /100{WBC}Normal0-0.5The [facility] Physician Group Comment on above:Performed By: #### RESP PANEL UPP., BIOFIRECOVNOTDE #### [place] [address] USALeukocytes [#/volume] corrected for nucleated erythrocytes in Blood by Automated counOrdered By: Ziggy Barraza on 72-26-9375IEA corrected for nucl RBC Auto (Bld) [#/Vol]4.7 10*3/uL3.8-11.6FAshtabula General HospitalMCHC Auto (RBC) [Mass/Vol]Ordered By: Ziggy Barraza on 28-64-6349ARLF (RBC) [Mass/Vol]32.5 g/dL32.0-35.0Adena Pike Medical CenterNo Panel InformationOrdered By: Luis Fernando Strauss on 14-04-2096Dweefehot GFR (CKD-EPI)> 60.0 mL/MinAdena Pike Medical CenterPharmacy Creatinine Clearance (Chem60.49Adena Pike Medical CenterNucleated erythrocytes [Presence] in Blood by Automated countOrdered By: Ziggy Barraza on 79-10-0963Ilpecpqpg RBC Auto Ql (Bld)0.2 /100{WBC}0-0.5FAshtabula General HospitalBasic Metabolic Panelon 80-63-4575Hlyqg gap [Moles/Vol]9.9 mmol/L Normal6.0-15.0The [facility] Physician GroupComment on above:Performed By: #### RESP PANEL UPP., BIOFIRECOVNOTDE #### [facility] [address] [place] [address] USACalcium [Mass/Vol]8.3 mg/dLLow8.6-10.3The [facility] Physician GroupComment on above:Performed By: #### RESP PANEL UPP., BIOFIRECOVNOTDE #### [facility] [address] [place] [address] USAChloride [Moles/Vol]97 mmol/MDpg19-737Dfo [facility] Physician GroupComment on above:Performed By: #### RESP PANEL UPP., BIOFIRECOVNOTDE #### [facility] [address] [place] [address] USACO2 [Moles/Vol]35.0 mmol/LHigh21.0-31.0The [facility] Physician GroupComment on above:Performed By: #### RESP PANEL UPP., BIOFIRECOVNOTDE #### [facility] [address] [place] [address] USACreatinine [Mass/Vol]0.89 mg/dLNormal0.60-1.20The [facility] Physician GroupComment on above:Performed By: #### RESP PANEL UPP., BIOFIRECOVNOTDE #### [place] [address] USACreatinine Clr Calc Ufyptudq14.10NormalThe [facility] Physician GroupComment on above:Result Comment: PERFORMED BY: [place] [address] PATHOLOGIST TETRYL WRINGER OPERATOR JOSÉ MIGUEL RON M.D.Performed By: #### RESP PANEL UPP., BIOFIRECOVNOTDE #### [place] [address] USAGFR/1.73 sq M.predicted MDRD (S/P/Bld) [Vol rate/Area] mL/min/{1.73_m2}NormalThe [facility] Physician GroupComment on above:Performed By: #### RESP PANEL UPP., BIOFIRECOVNOTDE #### [place] [address] USAGlucose [Mass/Vol]98 mg/tATjprgy54-204Uov [facility] Physician GroupComment on above:Result Comment: Random Glucose Reference Range is dependent on time and content of last meal. Glucose of more than 200 mg/dL in a nonstressed, ambulatory subject supports the diagnosis of Diabetes Mellitus. ADA recommended reference rangePerformed By: #### RESP PANEL UPP., BIOFIRECOVNOTDE #### [place] [address] USAPotassium [Moles/Vol]4.9 mmol/LNormal3.5-5.1The [facility] Physician GroupComment on above:Performed By: #### RESP PANEL UPP., BIOFIRECOVNOTDE #### [place] [address] USASodium [Moles/Vol]137 mmol/OPvxkfz903-120Uap [facility] Physician GroupComment on above:Performed By: #### RESP PANEL UPP., BIOFIRECOVNOTDE #### [place] [address] USAUrea nitrogen [Mass/Vol]12 mg/dLNormal7-25The [facility] Physician GroupComment on above:Performed By: #### RESP PANEL UPP., BIOFIRECOVNOTDE #### [place] [address] USAComplete Blood Count Auto Diffon 69-11-8786Gbgmcqzia (Bld) [#/Vol]0.1 10*3/uLNormal0.0-0.2The [facility] Physician GroupComment on above: Result Comment: PERFORMED BY: [place] [address] PATHOLOGIST TETRYL WRINGER OPERATOR JOSÉ MIGUEL RON M.D.Performed By: #### RESP PANEL UPP., BIOFIRECOVNOTDE #### [place] [address] USABasophils/100 WBC (Bld)1.4 %Normal.The [facility] Physician GroupComment on above:Performed By: #### RESP PANEL UPP., BIOFIRECOVNOTDE #### [place] [address] USAEosinophils (Bld) [#/Vol]0.2 10*3/uLNormal0.0-0.45The [facility] Physician GroupComment on above:Performed By: #### RESP PANEL UPP., BIOFIRECOVNOTDE #### [place] [address] USAEosinophils/100 WBC (Bld)3.8 %Normal.The [facility] Physician GroupComment on above:Performed By: #### RESP PANEL UPP., BIOFIRECOVNOTDE #### [place] [address] USAErythrocyte distribution width (RBC) [Ratio]20.9 %High 11.9-15.3The [facility] Physician GroupComment on above:Performed By: #### RESP PANEL UPP., BIOFIRECOVNOTDE #### [place] [address] USAHematocrit (Bld) [Volume fraction]24.6 %Low34.0-46.4The [facility] Physician GroupComment on above:Performed By: #### RESP PANEL UPP., BIOFIRECOVNOTDE #### [place] [address] USAHemoglobin (Bld) [Mass/Vol]7.9 g/dLLow11.8-15.4The [facility] Physician GroupComment on above:Performed By: #### RESP PANEL UPP., BIOFIRECOVNOTDE #### [place] [address] USALymphocytes (Bld) [#/Vol]1.2 10*3/uLNormal1.00-4.8The [facility] Physician GroupComment on above:Performed By: #### RESP PANEL UPP., BIOFIRECOVNOTDE #### [place] [address] USALymphocytes/100 WBC (Bld)22.7 %Normal.The [facility] Physician GroupComment on above:Performed By: #### RESP PANEL UPP., BIOFIRECOVNOTDE #### [place] [address] USAMCH (RBC) [Entitic mass]30.3 aoFjyzuj75.7-34.3The [facility] Physician GroupComment on above:Performed By: #### RESP PANEL UPP., BIOFIRECOVNOTDE #### [place] [address] USAMCV (RBC) [Entitic vol]94.3 cIPxaylj49-282Enl [facility] Physician GroupComment on above:Performed By: #### RESP PANEL UPP., BIOFIRECOVNOTDE #### [place] [address] USAMean Corpuscular HGB Conc32.1 g/vDAfuaaw53.0-35.0The [facility] Physician GroupComment on above:Performed By: #### RESP PANEL UPP., BIOFIRECOVNOTDE #### [place] [address] USAMonocytes (Bld) [#/Vol]0.4 10*3/uLNormal0.0-0.8The [facility] Physician GroupComment on above:Performed By: #### RESP PANEL UPP., BIOFIRECOVNOTDE #### [facility] [address] [place] [address] USAMonocytes/100 WBC (Bld)7.6 %Normal.The [facility] Physician GroupComment on above:Performed By: #### RESP PANEL UPP., BIOFIRECOVNOTDE #### [facility] [address] [place] [address] USANeutrophils (Bld) [#/Vol]3.3 10*3/uLNormal1.8-7.7The [facility] Physician GroupComment on above:Performed By: #### RESP PANEL UPP., BIOFIRECOVNOTDE #### [place] [address] USANeutrophils/100 WBC (Bld)64.5 %Normal.The [facility] Physician GroupComment on above:Performed By: #### RESP PANEL UPP., BIOFIRECOVNOTDE #### [place] [address] USANRBC%0.1 /100{WBC}Normal0-0.5The [facility] Physician Group Comment on above:Performed By: #### RESP PANEL UPP., BIOFIRECOVNOTDE #### [place] [address] USAPlatelet mean volume (Bld) [Entitic vol]7.8 fLNormal 6.3-10.7The [facility] Physician GroupComment on above:Performed By: #### RESP PANEL UPP., BIOFIRECOVNOTDE #### [place] [address] USAPlatelets (Bld) [#/Vol]224 10*3/yZAijvtx990-222Hpg [facility] Physician GroupComment on above:Performed By: #### RESP PANEL UPP., BIOFIRECOVNOTDE #### [facility] [address] [place] [address] USARBC (Bld) [#/Vol]2.61 10*6/uLLow3.60-5.00The [facility] Physician GroupComment on above:Performed By: #### RESP PANEL UPP., BIOFIRECOVNOTDE #### [place] [address] USAWBC (Bld) [#/Vol]5.2 10*3/uLNormal3.8-11.6The [facility] Physician GroupComment on above:Performed By: #### RESP PANEL UPP., BIOFIRECOVNOTDE #### [place] [address] USAAlbumin [Mass/volume] in Serum or Plasma by Bromocresol green (BCG) dye binding methoOrdered By: Nabila Rao on 69-20-8504Omvpphs BCG dye [Mass/Vol]2.9 g/dLLow3.5-5.7FAshtabula General HospitalComplete Blood Count Auto Diffon 28-19-8838Eniwpzonp (Bld) [#/Vol]0.1 10*3/uLNormal0.0-0.2The [facility] Physician GroupComment on above:Result Comment: PERFORMED BY: [place] [address] PATHOLOGIST TETRYL WRINGER OPERATOR JOSÉ MIGUEL RON M.D.Performed By: #### RESP PANEL UPP., BIOFIRECOVNOTDE #### [place] [address] USABasophils/100 WBC (Bld)1.5 %Normal.The [facility] Physician GroupComment on above:Performed By: #### RESP PANEL UPP., BIOFIRECOVNOTDE #### [place] [address] USAEosinophils (Bld) [#/Vol]0.2 10*3/uLNormal0.0-0.45The [facility] Physician GroupComment on above:Performed By: #### RESP PANEL UPP., BIOFIRECOVNOTDE #### [place] [address] USAEosinophils/100 WBC (Bld)2.9 %Normal.The [facility] Physician GroupComment on above:Performed By: #### RESP PANEL UPP., BIOFIRECOVNOTDE #### [place] [address] USAErythrocyte distribution width (RBC) [Ratio]20.9 %High 11.9-15.3The [facility] Physician GroupComment on above:Performed By: #### RESP PANEL UPP., BIOFIRECOVNOTDE #### [place] [address] USAHematocrit (Bld) [Volume fraction]23.6 %Low34.0-46.4The [facility] Physician GroupComment on above:Performed By: #### RESP PANEL UPP., BIOFIRECOVNOTDE #### [place] [address] USAHemoglobin (Bld) [Mass/Vol]7.7 g/dLLow11.8-15.4The [facility] Physician GroupComment on above:Performed By: #### RESP PANEL UPP., BIOFIRECOVNOTDE #### [place] [address] USALymphocytes (Bld) [#/Vol]1.2 10*3/uLNormal1.00-4.8The [facility] Physician GroupComment on above:Performed By: #### RESP PANEL UPP., BIOFIRECOVNOTDE #### [place] [address] USALymphocytes/100 WBC (Bld)20.4 %Normal.The [facility] Physician GroupComment on above:Performed By: #### RESP PANEL UPP., BIOFIRECOVNOTDE #### [place] [address] USAMCH (RBC) [Entitic mass]30.4 siJhxuzd58.7-34.3The [facility] Physician GroupComment on above:Performed By: #### RESP PANEL UPP., BIOFIRECOVNOTDE #### [place] [address] USAMCV (RBC) [Entitic vol]93.4 tLClujpf97-061Xso [facility] Physician GroupComment on above:Performed By: #### RESP PANEL UPP., BIOFIRECOVNOTDE #### [place] [address] USAMean Corpuscular HGB Conc32.6 g/zHDjernj74.0-35.0The [facility] Physician GroupComment on above:Performed By: #### RESP PANEL UPP., BIOFIRECOVNOTDE #### [place] [address] USAMonocytes (Bld) [#/Vol]0.5 10*3/uLNormal0.0-0.8The [facility] Physician GroupComment on above:Performed By: #### RESP PANEL UPP., BIOFIRECOVNOTDE #### [place] [address] USAMonocytes/100 WBC (Bld)9.3 %Normal.The [facility] Physician GroupComment on above:Performed By: #### RESP PANEL UPP., BIOFIRECOVNOTDE #### [place] [address] USANeutrophils (Bld) [#/Vol]3.7 10*3/uLNormal1.8-7.7The [facility] Physician GroupComment on above:Performed By: #### RESP PANEL UPP., BIOFIRECOVNOTDE #### [place] [address] USANeutrophils/100 WBC (Bld)65.9 %Normal.The [facility] Physician GroupComment on above:Performed By: #### RESP PANEL UPP., BIOFIRECOVNOTDE #### [place] [address] USANRBC%0.2 /100{WBC}Normal0-0.5The [facility] Physician Group Comment on above:Performed By: #### RESP PANEL UPP., BIOFIRECOVNOTDE #### [place] [address] USAPlatelet mean volume (Bld) [Entitic vol]7.7 fLNormal 6.3-10.7The [facility] Physician GroupComment on above:Performed By: #### RESP PANEL UPP., BIOFIRECOVNOTDE #### [place] [address] USAPlatelets (Bld) [#/Vol]237 10*3/vPGyikdu426-108Yzc [facility] Physician GroupComment on above:Performed By: #### RESP PANEL UPP., BIOFIRECOVNOTDE #### [place] [address] USARBC (Bld) [#/Vol]2.53 10*6/uLLow3.60-5.00The [facility] Physician GroupComment on above:Performed By: #### RESP PANEL UPP., BIOFIRECOVNOTDE #### [place] [address] USAWBC (Bld) [#/Vol]5.7 10*3/uLNormal3.8-11.6The [facility] Physician GroupComment on above:Performed By: #### RESP PANEL UPP., BIOFIRECOVNOTDE #### [place] [address] USAComprehensive Metabolic Panelon 65-18-8249Lknvbpo [Mass/Vol]2.9 g/dLLow3.5-5.7The [facility] Physician GroupComment on above: Performed By: #### RESP PANEL UPP., BIOFIRECOVNOTDE #### [place] [address] USAAnion gap [Moles/Vol]9.1 mmol/LNormal6.0-15.0The [facility] Physician GroupComment on above:Performed By: #### RESP PANEL UPP., BIOFIRECOVNOTDE #### [place] [address] USACalcium [Mass/Vol]8.3 mg/dLLow8.6-10.3The [facility] Physician GroupComment on above:Performed By: #### RESP PANEL UPP., BIOFIRECOVNOTDE #### [facility] [address] [place] [address] USAChloride [Moles/Vol]100 mmol/AYmonlg83-094Kva [facility] Physician GroupComment on above:Performed By: #### RESP PANEL UPP., BIOFIRECOVNOTDE #### [place] [address] USACO2 [Moles/Vol]32.6 mmol/LHigh21.0-31.0The [facility] Physician GroupComment on above:Performed By: #### RESP PANEL UPP., BIOFIRECOVNOTDE #### [place] [address] USACreatinine [Mass/Vol]0.79 mg/dLNormal0.60-1.20The [facility] Physician GroupComment on above:Performed By: #### RESP PANEL UPP., BIOFIRECOVNOTDE #### [place] [address] USACreatinine Clr Calc Wldyddla76.96NormalThe [facility] Physician GroupComment on above:Performed By: #### RESP PANEL UPP., BIOFIRECOVNOTDE #### [place] [address] USAGFR/1.73 sq M.predicted MDRD (S/P/Bld) [Vol rate/Area] mL/min/{1.73_m2}NormalThe [facility] Physician GroupComment on above:Performed By: #### RESP PANEL UPP., BIOFIRECOVNOTDE #### [place] [address] USAGlucose [Mass/Vol]96 mg/lWNxvkbx03-154Vbr [facility] Physician GroupComment on above:Result Comment: Random Glucose Reference Range is dependent on time and content of last meal. Glucose of more than 200 mg/dL in a nonstressed, ambulatory subject supports the diagnosis of Diabetes Mellitus. ADA recommended reference rangePerformed By: #### RESP PANEL UPP., BIOFIRECOVNOTDE #### [place] [address] USAPotassium [Moles/Vol]3.7 mmol/LNormal3.5-5.1The [facility] Physician GroupComment on above:Performed By: #### RESP PANEL UPP., BIOFIRECOVNOTDE #### [place] [address] USASodium [Moles/Vol]138 mmol/PSjhzkb122-952Gcd [facility] Physician GroupComment on above:Performed By: #### RESP PANEL UPP., BIOFIRECOVNOTDE #### [place] [address] USAUrea nitrogen [Mass/Vol]9 mg/dLNormal7-e [facility] Physician GroupComment on above:Performed By: #### RESP PANEL UPP., BIOFIRECOVNOTDE #### [place] [address] USAComprehensive Metabolic PanelOrdered By: Nabila Rao on 31-37-8206Dpuwszm/Globulin [Mass ratio]1.1 {ratio}Fisher-Titus Medical CenterComment on above:Performed By: #### RESP PANEL UPP., BIOFIRECOVNOTDE #### [place] [address] USAALP [Catalytic activity/Vol]155 U/IQdts15-650SijrsncpjAdena Pike Medical CenterComment on above:Performed By: #### RESP PANEL UPP., BIOFIRECOVNOTDE #### [place] [address] USAALT [Catalytic activity/Vol]13 U/LNormal7-52A[facility] Pike Medical CenterComment on above:Performed By: #### RESP PANEL UPP., BIOFIRECOVNOTDE #### [place] [address] USAAST [Catalytic activity/Vol]15 U/XSutvsm55-10HdtcoguuwAdena Pike Medical CenterComment on above:Performed By: #### RESP PANEL UPP., BIOFIRECOVNOTDE #### [place] [address] USABilirubin [Mass/Vol]0.3 mg/dLNormal0.3-1.0A[facility] Pike Medical CenterComment on above:Performed By: #### RESP PANEL UPP., BIOFIRECOVNOTDE #### [place] [address] USAGlobulin (S) [Mass/Vol]2.6 g/dLNormalAdena Pike Medical CenterComment on above:Performed By: #### RESP PANEL UPP., BIOFIRECOVNOTDE #### [place] [address] USAProtein [Mass/Vol]5.5 g/dLLow6.4-8.9A[facility] Pike Medical CenterComment on above:Performed By: #### RESP PANEL UPP., BIOFIRECOVNOTDE #### [place] [address] USAFerritinOrdered By: Nabila Rao on 14-03-1745Rythgidg [Mass/Vol]338.7 ng/gGTsou20.0-306.8A[facility]ike Medical CenterComment on above:Performed By: #### HS TROP, CK, BNP, BMP, CBC, PT, PTT #### [place] [address] USAFolate [Mass/volume] in Serum or PlasmaOrdered By: Nabila Rao on 46-74-6356Tduplg [Mass/Vol]6.5 ng/mL>5.9A[facility] Pike Medical CenterComment on above:Folate reference range: >5.9 ng/mlThe WHO technical consultation on folate and vitamin k11ddtwgdmsvoyc has determined that folate concentrations lessthan 4 ng/ml are considered deficient.Iron and TIBC Profileon 01-20-2024% Iron Hkedmbjqib92.3 %Pdz76-86Jlb [facility] Physician GroupComment on above:Performed By: #### RESP PANEL UPP., BIOFIRECOVNOTDE #### [place] [address] USATotal Iron Binding Xhnoxkeh529 ug/fHQlk470-973Hxf [facility] Physician GroupComment on above:Performed By: #### RESP PANEL UPP., BIOFIRECOVNOTDE #### [facility] [address] [place] [address] USAIron and TIBC ProfileOrdered By: Nabila Rao on 37-36-1526Kwol [Mass/Vol]24 ug/nBQwn48-653IthiuyjsnAdena Pike Medical Center Comment on above:Performed By: #### RESP PANEL UPP., BIOFIRECOVNOTDE #### [facility] [address] [place] [address] USATransferrin [Mass/Vol]166 mg/tVMtl947-751AbaultcvtAdena Pike Medical CenterComment on above:Performed By: #### RESP PANEL UPP., BIOFIRECOVNOTDE #### [place] [address] USAIron binding capacity [Mass/volume] in Serum or Plasma Ordered By: Nabila Rao on 39-84-0129Lzij binding capacity [Mass/Vol]232 ug/dL Wbp708-164TvditqcvrAdena Pike Medical CenterIron saturation [Mass Fraction] in Serum or PlasmaOrdered By: Nabila Rao on 19-71-1711Yvwg saturation [Mass fraction]10.3 %Typ06-07BuuixnxkfAdena Pike Medical CenterMagnesiumOrdered By: Nabila Rao on 63-31-9183Ytbgvibiz [Mass/Vol]1.8 mg/dLLow1.9-2.7FAshtabula General HospitalComment on above:Performed By: #### RESP PANEL UPP., BIOFIRECOVNOTDE #### [facility] [address] [place] [address] USAPhosphorusOrdered By: Nabila Rao on 45-36-3176Iuhywgwjj [Mass/Vol]4.2 mg/dLNormal2.5-4.5FAshtabula General HospitalComment on above:Performed By: #### RESP PANEL UPP., BIOFIRECOVNOTDE #### [place] [address] USAThyroid Stimulating HormoneOrdered By: Nabila Roa on [id number] Qn3.03 m[IU]/LNormal0.45-5.33[facility] Comment on above:Result Comment: PERFORMED BY: [place] [address] PATHOLOGIST TETRYL WRINGER OPERATOR JOSÉ MIUGEL RON M.D.Performed By: #### HS TROP, CK, BNP, BMP, CBC, PT, PTT #### [place] [id number] USATroponin I High Sensitivityon 03-55-8500Ibvodggo I High Sensitivity8.4 pg/mLNormal0.0-15.0[facility] Physician GroupComment on above: Result Comment: PERFORMED BY: [place] [address] PATHOLOGIST TETRYL WRINGER OPERATOR JOSÉ MIGUEL RON M.D.Performed By: #### HS TROP, CK, BNP, BMP, CBC, PT, PTT #### [place] [id number] USATroponin I.cardiac [Mass/volume] in Serum or Plasma by Detection limit <= 0.01 ng/Ordered By: Nabila Rao on [id number] I.cardiac DL <= 0.01 ng/mL [Mass/Vol]8.4 pg/mL0.0-15.0[facility] Medical CenterUS venous duplex LE BIon 09-11-1487RM venous duplex LE [facility] Main [address] [address] Ultrasound Report Signed Patient: Jonatan Olivarez MR#: [id number] : 1960 Acct:[id number] Age/Sex: 63 / F ADM Date: 01/19/24 Loc: Room: [address] [place] [address] Type: ADM IN Attending Dr: Luis Fernando [...] Artur Guo MD01/20/2024 1:32 PM Dictation Location: [employer] Tech: Kirsten Cespedes Transcribed By: [facility] 01/20/24 1332 Dictated By: Artur Guo MD 01/20/24 1329 Signed By: 01/20/24 1332[facility] Physician GroupVit. B12/Folate ProfileOrdered By: Nabila Rao on 07-72-1482Kqixurpxi (Vitamin B12) [Mass/Vol]398 pg/mLNormal 180-914Adena Pike Medical CenterComment on above:Performed By: #### HS TROP, CK, BNP, BMP, CBC, PT, PTT #### [facility] [address] [place] [address] USAVit. B12/Folate Profileon 30-27-8538Llhgjz6.5 ng/mLNormal >5.9The [facility] Physician [facility] Grove CenterComment on above:Result Comment: Folate reference range: >5.9 ng/ml The WHO technical consultation on folate and vitamin b12 deficiencies has determined that folate concentrations less than 4 ng/ml are considered deficient.Performed By: #### HS TROP, CK, BNP, BMP, CBC, PT, PTT #### [facility] [address] [place] [address] USAActivated partial thromboplastin time (aPTT) in platelet poor plasma by coagulation aOrdered By: Carlo Grimaldo on 57-46-4247aEWK Coag (PPP) [Time]31.2 s25.1-36.5FAshtabula General HospitalComment on above:A hematocrit value greater than 55% may lead to inaccurate results in coagulation testing. Patientshaving hematocrit values >55% require a special collection tube for coagulation studies. Please contact the laboratory at [phone] for redraw instructions.Automated basophil %Ordered By: Nabila Rao on 01-19-2024 Basophils/100 WBC (Bld)0.9 %Normal.Adena Pike Medical CenterComment on above:Performed By: #### RESP PANEL UPP., BIOFIRECOVNOTDE #### [place] [address] USAAutomated basophil countOrdered By: Nabila Rao on 07-62-4186Bootkfzuu (Bld) [#/Vol]0.1 10*3/uLNormal0.0-0.2FAshtabula General HospitalComment on above:Result Comment: PERFORMED BY: [place] [address] PATHOLOGIST TETRYL WRINGER OPERATOR JOSÉ MIGUEL RON M.D.Performed By: #### RESP PANEL UPP., BIOFIRECOVNOTDE #### [place] [address] USAAutomated blood monocyte countOrdered By: Nabila Rao on 28-92-1411Pottcszfh (Bld) [#/Vol]0.5 10*3/uLNormal0.0-0.8Adena Pike Medical CenterComment on above:Performed By: #### RESP PANEL UPP., BIOFIRECOVNOTDE #### [place] [address] USAAutomated eosinophil %Ordered By: Nabila Rao on 22-52-8081Nirxapokaab/100 WBC (Bld)2.2 %Normal.[facility] Comment on above:Performed By: #### RESP PANEL UPP., BIOFIRECOVNOTDE #### [place] [address] USAAutomated eosinophil countOrdered By: Nabila Rao on 86-46-7937Vrpcqtsluzg (Bld) [#/Vol]0.2 10*3/uLNormal0.0-0.45Adena Pike Medical CenterComment on above:Performed By: #### RESP PANEL UPP., BIOFIRECOVNOTDE #### [facility] [address] [place] [address] USAAutomated monocyte %Ordered By: Nabila Rao on 01-19-2024 Monocytes/100 WBC (Bld)6.8 %Normal.Adena Pike Medical CenterComment on above:Performed By: #### RESP PANEL UPP., BIOFIRECOVNOTDE #### [place] [address] USAAutomated neutrophil %Ordered By: Nabila Rao on 06-40-3957Olejfkdbjur/100 WBC (Bld)70.9 %Normal.Aden[facility] Pike Medical CenterComment on above:Performed By: #### RESP PANEL UPP., BIOFIRECOVNOTDE #### [place] [address] USABNP ser/plasOrdered By: Carlo Grimaldo on 01-19-2024 Natriuretic peptide B (Bld) [Mass/Vol]618.0 pg/mLHigh5-100Adena Pike Medical CenterComment on above:Result Comment: PERFORMED BY: [place] [address] PATHOLOGIST TETRYL WRINGER OPERATOR JOSÉ MIGUEL RON M.D.Performed By: #### HS TROP, CK, BNP, BMP, CBC, PT, PTT #### [place] [address] USABasic Metabolic Panelon 05-91-3770Zqxvyfpohp Clr Calc Lcltcdbs91.[address] [place] [address] Physician GroupComment on above:Result Comment: PERFORMED BY: [place] [address] PATHOLOGIST TETRYL WRINGER OPERATOR JOSÉ MIGUEL RON M.D.Performed By: #### HS TROP, CK, BNP, BMP, CBC, PT, PTT #### [place] [address] USAGFR/1.73 sq M.predicted MDRD (S/P/Bld) [Vol rate/Area] mL/min/{1.73_m2}NormalThe [facility] Physician GroupComment on above:Performed By: #### HS TROP, CK, BNP, BMP, CBC, PT, PTT #### [facility] [address] [place] [address] USABioFire Not Detectedon 11-80-9608GowCxvg Not DetectedNot detectedNormalNot DetecteThe [facility] Physician GroupComment on above:Result Comment: This is a duplicate RP2.1 COVID (PCR) result to be used for statistical tracking purpose only. PERFORMED BY: [place] [address] PATHOLOGIST TETRYL WRINGER OPERATOR JOSÉ MIGUEL RON M.D.Performed By: #### RESP PANEL UPP., BIOFIRECOVNOTDE #### [place] [address] USACOVID-19 Detected/Not DetectedOrdered By: Carlo Grimaldo on 43-03-5574RROT-CoV-2 (COVID-19) RNA JANIA+non-probe Ql (Nph)Not detectedNot Parkview HealthComment on above:This is a duplicate RP2.1 COVID (PCR) result to be used for statistical tracking purpose only.CT abdomen pelvis w conon 15-32-5049ET abdomen pelvis w [facility] [place] [address] [place] [address] CT Scan Report Signed Patient: Jonatan Olivarez MR#: [id number] : 1960 Acct:[id number] Age/Sex: 63 / F ADM Date: 01/19/24 Loc: ER Room: Type: [facility] ER Attending Dr: Copies to: Carlo Grimaldo DO Ordering Provider: Carlo Grimaldo DO Date of Service: 01/19/24 CT/CT angio chest PE protocol: f ([id number]) CT/CT abdomen pelvis w con: f CLINICAL [...] Lindsey Menchaca M.D.01/19/2024 7:09 PM Dictation Location: [place] [address] Transcribed By: [facility] 01/19/241908 Dictated By: Lindsey Menchaca MD 01/19/24 (more content not included)...NormalThe [facility] Physician GroupCalcium [Mass/volume] in Serum or PlasmaOrdered By: Carlo Grimaldo on 61-86-5558Taxqoki [Mass/Vol]8.7 mg/dLNormal8.6-10.3FAshtabula General HospitalComment on above:Performed By: #### HS TROP, CK, BNP, BMP, CBC, PT, PTT #### [facility] [address] [place] [address] USACarbon dioxide, total [Moles/volume] in Serum or Plasma Ordered By: Carlo Grimaldo on 30-29-0111OK9 [Moles/Vol]30.7 mmol/NEzoojl95.0-31.0 Ad[facility] Pike Medical CenterComment on above:Performed By: #### HS TROP, CK, BNP, BMP, CBC, PT, PTT #### [facility] [address] [place] [address] USAChloride [Moles/volume] in Serum or PlasmaOrdered By: Carlo Grimaldo on 21-62-7133Kvpxmsii [Moles/Vol]97 mmol/WNsy61-890LulxtyysfAdena Pike Medical CenterComment on above:Performed By: #### HS TROP, CK, BNP, BMP, CBC, PT, PTT #### [place] [address] USAComplete Blood Count Auto Diffon 19-75-0107Ajtqpwhgr (Bld) [#/Vol]0.1 10*3/uLNormal0.0-0.2The [facility] Physician GroupComment on above: Result Comment: PERFORMED BY: [place] [address] PATHOLOGIST TETRYL WRINGER OPERATOR JOSÉ MIGUEL RON M.D.Performed By: #### HS TROP, CK, BNP, BMP, CBC, PT, PTT #### [place] [address] USABasophils/100 WBC (Bld)1.8 %Normal.The [facility] Physician GroupComment on above:Performed By: #### HS TROP, CK, BNP, BMP, CBC, PT, PTT #### [place] [address] USAEosinophils (Bld) [#/Vol]0.2 10*3/uLNormal0.0-0.45The [facility] Physician GroupComment on above:Performed By: #### HS TROP, CK, BNP, BMP, CBC, PT, PTT #### [place] [address] USAEosinophils/100 WBC (Bld)2.5 %Normal.The [facility] Physician GroupComment on above:Performed By: #### HS TROP, CK, BNP, BMP, CBC, PT, PTT #### [place] [address] USAErythrocyte distribution width (RBC) [Ratio]20.2 %High 11.9-15.3The [facility] Physician GroupComment on above:Performed By: #### HS TROP, CK, BNP, BMP, CBC, PT, PTT #### [address] [place] [address] USAHematocrit (Bld) [Volume fraction]23.6 %Low34.0-46.4The [facility] Physician GroupComment on above:Performed By: #### HS TROP, CK, BNP, BMP, CBC, PT, PTT #### [place] [address] USAHemoglobin (Bld) [Mass/Vol]7.7 g/dLLow11.8-15.4The [facility] Physician GroupComment on above:Performed By: #### HS TROP, CK, BNP, BMP, CBC, PT, PTT #### [place] [address] USALymphocytes (Bld) [#/Vol]1.2 10*3/uLNormal1.00-4.8The [facility] Physician GroupComment on above:Performed By: #### HS TROP, CK, BNP, BMP, CBC, PT, PTT #### [place] [address] USALymphocytes/100 WBC (Bld)19.9 %Normal.The [facility] Physician GroupComment on above:Performed By: #### HS TROP, CK, BNP, BMP, CBC, PT, PTT #### [address]H (RBC) [Entitic mass]30.4 swPoznph50.7-34.3The [facility] Physician GroupComment on above:Performed By: #### HS TROP, CK, BNP, BMP, CBC, PT, PTT #### [address]V (RBC) [Entitic vol]92.7 gOCrjeka18-169Xcy [facility] Physician GroupComment on above:Performed By: #### HS TROP, CK, BNP, BMP, CBC, PT, PTT #### [place] [address] USAMean Corpuscular HGB Conc32.8 g/wXRxcvmj63.0-35.0The [facility] Physician GroupComment on above:Performed By: #### HS TROP, CK, BNP, BMP, CBC, PT, PTT #### [place] [address] USAMonocytes (Bld) [#/Vol]0.5 10*3/uLNormal0.0-0.8The [facility] Physician GroupComment on above:Performed By: #### HS TROP, CK, BNP, BMP, CBC, PT, PTT #### [place] [address] USAMonocytes/100 WBC (Bld)7.9 %Normal.The [facility] Physician GroupComment on above:Performed By: #### HS TROP, CK, BNP, BMP, CBC, PT, PTT #### [place] [address] USANeutrophils (Bld) [#/Vol]4.2 10*3/uLNormal1.8-7.7The [facility] Physician GroupComment on above:Performed By: #### HS TROP, CK, BNP, BMP, CBC, PT, PTT #### [place] [address] USANeutrophils/100 WBC (Bld)67.9 %Normal.The [facility] Physician GroupComment on above:Performed By: #### HS TROP, CK, BNP, BMP, CBC, PT, PTT #### [place] [address] USANRBC%0.1 /100{WBC}Normal0-0.5The [facility] Physician Group Comment on above:Performed By: #### HS TROP, CK, BNP, BMP, CBC, PT, PTT #### [place] [address] USAPlatelet mean volume (Bld) [Entitic vol]7.3 fLNormal 6.3-10.7The [facility] Physician GroupComment on above:Performed By: #### HS TROP, CK, BNP, BMP, CBC, PT, PTT #### [place] [address] USAPlatelets (Bld) [#/Vol]245 10*3/dZNcflhb946-496Drn [facility] Physician GroupComment on above:Performed By: #### HS TROP, CK, BNP, BMP, CBC, PT, PTT #### [place] [address] USARBC (Bld) [#/Vol]2.54 10*6/uLLow3.60-5.00The [facility] Physician GroupComment on above:Performed By: #### HS TROP, CK, BNP, BMP, CBC, PT, PTT #### [place] [address] USAWBC (Bld) [#/Vol]6.1 10*3/uLNormal3.8-11.6The [facility] Physician GroupComment on above:Performed By: #### HS TROP, CK, BNP, BMP, CBC, PT, PTT #### [place] [address] USAMean Corpuscular HGB Conc32.9 g/aKQnjihe87.0-35.0The [facility] Physician [facility] CenterComment on above:Performed By: #### RESP PANEL UPP., BIOFIRECOVNOTDE #### [place] [address] USAMonocytes/100 WBC (Bld)23.33 %High0.00-20.00The [facility] Physician GroupComment on above:Result Comment: For adults in ED, MDW > 20.0 may be associated with a higher risk of sepsis during the first 12 hrs of hospital admission The predictive value of MDW for identifying sepsis in patients with hematological abnormalities has not been establishedPerformed By: #### RESP PANEL UPP., BIOFIRECOVNOTDE #### [place] [address] USANRBC%0.2 /100{WBC}Normal0-0.5The [facility] Physician Group Comment on above:Performed By: #### RESP PANEL UPP., BIOFIRECOVNOTDE #### [place] [address] USABasophils (Bld) [#/Vol]0.1 10*3/uLNormal0.0-0.2The [facility] Physician GroupComment on above:Result Comment: PERFORMED BY: [place] [address] PATHOLOGIST TETRYL WRINGER OPERATOR JOSÉ MIGUEL RON M.D.Performed By: #### HS TROP, CK, BNP, BMP, CBC, PT, PTT #### [place] [address] USABasophils/100 WBC (Bld)1.7 %Normal.The [facility] Physician GroupComment on above:Performed By: #### HS TROP, CK, BNP, BMP, CBC, PT, PTT #### [place] [address] USAEosinophils (Bld) [#/Vol]0.2 10*3/uLNormal0.0-0.45The [facility] Physician GroupComment on above:Performed By: #### HS TROP, CK, BNP, BMP, CBC, PT, PTT #### [place] [address] USAEosinophils/100 WBC (Bld)2.2 %Normal.The [facility] Physician GroupComment on above:Performed By: #### HS TROP, CK, BNP, BMP, CBC, PT, PTT #### [place] [address] USAErythrocyte distribution width (RBC) [Ratio]20.5 %High 11.9-15.3The [facility] Physician GroupComment on above:Performed By: #### HS TROP, CK, BNP, BMP, CBC, PT, PTT #### [place] [address] USAHematocrit (Bld) [Volume fraction]26.3 %Low34.0-46.4The [facility] Physician GroupComment on above:Performed By: #### HS TROP, CK, BNP, BMP, CBC, PT, PTT #### [place] [address] USAHemoglobin (Bld) [Mass/Vol]8.6 g/dLLow11.8-15.4The [facility] Physician GroupComment on above:Performed By: #### HS TROP, CK, BNP, BMP, CBC, PT, PTT #### [place] [address] USALymphocytes (Bld) [#/Vol]1.2 10*3/uLNormal1.00-4.8The [facility] Physician GroupComment on above:Performed By: #### HS TROP, CK, BNP, BMP, CBC, PT, PTT #### [place] [address] USALymphocytes/100 WBC (Bld)16.0 %Normal.The [facility] Physician GroupComment on above:Performed By: #### HS TROP, CK, BNP, BMP, CBC, PT, PTT #### [address]MCH (RBC) [Entitic mass]30.7 nmUxihxh68.7-34.3The [facility] Physician GroupComment on above:Performed By: #### HS TROP, CK, BNP, BMP, CBC, PT, PTT #### [address]V (RBC) [Entitic vol]93.7 xNUljhnq80-641Pnu [facility] Physician GroupComment on above:Performed By: #### HS TROP, CK, BNP, BMP, CBC, PT, PTT #### [place] [address] USAMean Corpuscular HGB Conc32.8 g/tRVkcgfu98.0-35.0The [facility] Physician GroupComment on above:Performed By: #### HS TROP, CK, BNP, BMP, CBC, PT, PTT #### [place] [address] USAMonocytes (Bld) [#/Vol]0.5 10*3/uLNormal0.0-0.8The [facility] Physician GroupComment on above:Performed By: #### HS TROP, CK, BNP, BMP, CBC, PT, PTT #### [place] [address] USAMonocytes/100 WBC (Bld)20.14 %High0.00-20.00The [facility] Physician GroupComment on above:Result Comment: For adults in ED, MDW > 20.0 may be associated with a higher risk of sepsis during the first 12 hrs of hospital admissionPerformed By: #### HS TROP, CK, BNP, BMP, CBC, PT, PTT #### [place] [address] USAMonocytes/100 WBC (Bld)7.0 %Normal.The [facility] Physician GroupComment on above:Performed By: #### HS TROP, CK, BNP, BMP, CBC, PT, PTT #### [place] [address] USANeutrophils (Bld) [#/Vol]5.4 10*3/uLNormal1.8-7.7The [facility] Physician GroupComment on above:Performed By: #### HS TROP, CK, BNP, BMP, CBC, PT, PTT #### [place] [address] USANeutrophils/100 WBC (Bld)73.1 %Normal.The [facility] Physician GroupComment on above:Performed By: #### HS TROP, CK, BNP, BMP, CBC, PT, PTT #### [place] [address] USANRBC%0.1 /100{WBC}Normal0-0.5The [facility] Physician Group Comment on above:Performed By: #### HS TROP, CK, BNP, BMP, CBC, PT, PTT #### [place] [address] USAPlatelet mean volume (Bld) [Entitic vol]7.7 fLNormal 6.3-10.7The [facility] Physician GroupComment on above:Performed By: #### HS TROP, CK, BNP, BMP, CBC, PT, PTT #### [place] [address] USAPlatelets (Bld) [#/Vol]282 10*3/zXTxoezc209-572Ltw [facility] Physician GroupComment on above:Performed By: #### HS TROP, CK, BNP, BMP, CBC, PT, PTT #### [facility] [address] [place] [address] USARBC (Bld) [#/Vol]2.81 10*6/uLLow3.60-5.00The [facility] Physician GroupComment on above:Performed By: #### HS TROP, CK, BNP, BMP, CBC, PT, PTT #### [facility] [address] [place] [address] USAWBC (Bld) [#/Vol]7.4 10*3/uLNormal3.8-11.6The [facility] Physician [facility] CenterComment on above:Performed By: #### HS TROP, CK, BNP, BMP, CBC, PT, PTT #### [facility] [address] [place] [address] USACreatine kinase [Enzymatic activity/volume] in Serum or PlasmaOrdered By: Carlo Grimaldo on 23-51-7946TJ [Catalytic activity/Vol]32 U/L Vxjkqx73-563TfebubhgtAdena Pike Medical CenterComment on above:Performed By: #### HS TROP, CK, BNP, BMP, CBC, PT, PTT #### [facility] [address] [place] [address] USACreatinine [Mass/volume] in Serum or PlasmaOrdered By: Carlo Grimaldo on 45-07-6451Dvuukbhhvy [Mass/Vol]0.87 mg/dLNormal0.60-1.20 [facility] Medical CenterComment on above:Performed By: #### HS TROP, CK, BNP, BMP, CBC, PT, PTT #### [facility] [address] [place] [address] USAECG 12 lead ECGon 14-94-5544KKB 12 lead ECGSYCAMORE [facility] [place] [address] [place] [address] Electrocardiograph Report Signed Patient: Jonatan Olivarez MR#: [id number] : 1960 Acct:[id number] Age/Sex: 63 / F ADM Date: 01/19/24 Loc: Room: [address] [place] [address] Type: ADM IN Attending Dr: Nabila Rao [...] Signed By Nia Ng MD 12/31 04/[address] [place] [address] [facility] Main [place] [address] [place] [address] Electrocardiograph Report Signed Patient: Jonatan Olivarez MR#: [id number] : 1960 Acct:[id number] Age/Sex: 63 / F ADM Date: 01/19/24 Loc: ER Room: Type: [facility] ER Attending Dr: Ordering Provider: Carlo [...] ECGs available Confirmed by CARLO GRIMALDO DO ([id number]) on 01/19/2024 8:03:55 PM Referred By: Electronically Signed By: CARLO GRIMALDO DO Transcribed By: MUS Signed By Carlo Grimaldo DO 01/18 2003NormalThe [place] Physician GroupErythrocyte distribution width [Ratio] by Automated countOrdered By: Nabila Rao on 66-56-2912Ujsyswfaunp distribution width (RBC) [Ratio]19.7 %High11.9-15.3FAshtabula General HospitalComment on above:Performed By: #### RESP PANEL UPP., BIOFIRECOVNOTDE #### [facility] [address] [place] [id number] USAErythrocytes [#/volume] in Blood by Automated countOrdered By: Nabila Rao on 32-18-9516LSL (Bld) [#/Vol]2.63 10*6/uLLow3.60-5.00 [facility] Medical CenterComment on above:Performed By: #### RESP PANEL UPP., BIOFIRECOVNOTDE #### [place] [address] USAGlucose [Mass/volume] in Serum or PlasmaOrdered By: Carlo Grimaldo on 49-25-8256Uvqiidl [Mass/Vol]173 mg/cXVlar66-916WnkssxuxxAdena Pike Medical CenterComment on above:ADA recommended reference rangeRandom Glucose Reference [...] CK, BNP, BMP, CBC, PT, PTT #### [facility] [address] [place] [id number] USAHematocrit [Volume Fraction] of Blood by Automated count Ordered By: Nabila Rao on 02-18-2368Njgzxykwbt (Bld) [Volume fraction]24.3 % Low34.0-46.4FAshtabula General HospitalComment on above:Performed By: #### RESP PANEL UPP., BIOFIRECOVNOTDE #### [place] [id number] USAHemoglobin [Mass/volume] in BloodOrdered By: Nabila Rao on 18-29-6539Regtjmjnoe (Bld) [Mass/Vol]8.0 g/dLLow11.8-15.4FAshtabula General HospitalComment on above:Performed By: #### RESP PANEL UPP., BIOFIRECOVNOTDE #### [facility] [address] [place] [address] USAINR in Platelet poor plasma by Coagulation assayOrdered By: Carlo Grimaldo on 03-75-9876IDW Coag (PPP) [Relative time]0.9 {INR}Normal [facility] Medical CenterComment on above:INR Therapeutic Range A) Pre- and [...] CK, BNP, BMP, CBC, PT, PTT #### [facility] [address] [place] [address] USALactate [Moles/volume] in Serum or PlasmaOrdered By: Nabila Rao on 67-32-5964Huwunzm [Moles/Vol]0.8 mmol/LNormal0.5-2.2FAshtabula General HospitalComment on above:Result Comment: PERFORMED BY: [place] [address] PATHOLOGIST TETRYL WRINGER OPERATOR JOSÉ MIGUEL RON M.D.Performed By: #### RESP PANEL UPP., BIOFIRECOVNOTDE #### [facility] [address] [place] [address] USALeukocytes [#/volume] corrected for nucleated erythrocytes in Blood by Automated counOrdered By: Nabila Rao on 68-48-0459MBV corrected for nucl RBC Auto (Bld) [#/Vol]7.0 10*3/uL3.8-11.6FAshtabula General HospitalLeukocytes [#/volume] in Blood by Automated countOrdered By: Nabila Rao on 34-96-3997JOE (Bld) [#/Vol]7.0 10*3/uLNormal3.8-11.6FAshtabula General HospitalComment on above:Performed By: #### RESP PANEL UPP., BIOFIRECOVNOTDE #### [place] [address] USALymphocytes [#/volume] in Blood by Automated countOrdered By: Nabila Rao on 09-80-3266Pracxjgvpql (Bld) [#/Vol]1.3 10*3/uLNormal1.00-4.8 [facility] Medical CenterComment on above:Performed By: #### RESP PANEL UPP., BIOFIRECOVNOTDE #### [place] [address] USALymphocytes/100 leukocytes in Blood by Automated count Ordered By: Nabila Rao on 95-79-2001Hpcvvcnhnqt/100 WBC (Bld)19.2 %Normal. [facility]ike Medical CenterComment on above:Performed By: #### RESP PANEL UPP., BIOFIRECOVNOTDE #### [address] [Entitic mass] by Automated countOrdered By: Nabila Rao on 16-05-6327NDS (RBC) [Entitic mass]30.4 ggUxavhx43.7-34.3FAshtabula General HospitalComment on above:Performed By: #### RESP PANEL UPP., BIOFIRECOVNOTDE #### [address] Auto (RBC) [Mass/Vol]Ordered By: Nabila Rao on 86-71-2636SZNI (RBC) [Mass/Vol]32.9 g/dL32.0-35.0Adena Pike Medical CenterMCV [Entitic volume] by Automated countOrdered By: Nabila Rao on 48-46-2062HFC (RBC) [Entitic vol]92.4 tXEthcip71-306FscpxtiniAdena Pike Medical CenterComment on above:Performed By: #### RESP PANEL UPP., BIOFIRECOVNOTDE #### [facility] [address] [place] [address] USAMonocyte distribution width [Entitic volume] in Blood by AutomatedOrdered By: Nabila Rao on 59-73-2323Tbxjcchl distribution width Auto (Bld) [Entitic vol]23.33 %High0.00-20.00A[facility] Pike Medical CenterComment on above:For adults in ED, MDW > 20.0 may be associated with a higher risk of sepsis during the first 12 hrs of hospital admissionThe predictive value of MDW for identifying sepsis in patients with hematological abnormalities has not been establishedNeutrophils [#/volume] in Blood by Automated countOrdered By: Nabila Rao on 03-80-2264Ytlcposzgpo (Bld) [#/Vol]5.0 10*3/uLNormal1.8-7.7FAshtabula General HospitalComment on above:Performed By: #### RESP PANEL UPP., BIOFIRECOVNOTDE #### [facility] [address] [place] [id number] USANo Panel InformationOrdered By: Carlo Grimaldo on 42-99-0444Rnjoh Occult Blood (JESS)A[facility]a Pike Medical CenterEstimated GFR (CKD-EPI)> 60.0 mL/MinAdena Pike Medical CenterPharmacy Creatinine Clearance (Chem56.97Adena Pike Medical CenterNucleated erythrocytes [Presence] in Blood by Automated countOrdered By: Nabila Rao on 01-19-2024 Nucleated RBC Auto Ql (Bld)0.2 /100{WBC}0-0.5FAshtabula General Hospital Partial Thromboplastin Timeon 62-89-1279cNKD Coag (Bld) [Time]31.2 sNormal 25.1-36.5The [facility] Physician GroupComment on above:Result Comment: A hematocrit value greater than 55% may lead to inaccurate results in coagulation testing. Patients having hematocrit values >55% require a special collection tube for coagulation studies. Please contact the laboratory at [phone] for redraw instructions. PERFORMED BY: [place] [address] PATHOLOGIST TETRYL WRINGER OPERATOR JOSÉ MIGUEL RON M.D.Performed By: #### HS TROP, CK, BNP, BMP, CBC, PT, PTT #### [place] [address] USAPlatelet mean volume [Entitic volume] in Blood by Automated countOrdered By: Nabila Rao on 52-26-4791Jyceagmz mean volume (Bld) [Entitic vol]7.7 fLNormal6.3-10.7FAshtabula General HospitalComment on above:Performed By: #### RESP PANEL UPP., BIOFIRECOVNOTDE #### [place] [address] USAPlatelets [#/volume] in Blood by Automated countOrdered By: Nabila Rao on 52-57-7153Quxorxxww (Bld) [#/Vol]251 10*3/[id number] [facility] CenterComment on above:Performed By: #### RESP PANEL UPP., BIOFIRECOVNOTDE #### [place] [address] USAPotassium [Moles/volume] in Serum or PlasmaOrdered By: Carlo Grimaldo on 11-48-1146Vdrntpzos [Moles/Vol]3.5 mmol/LNormal3.5-5.1FAshtabula General HospitalComment on above:Performed By: #### HS TROP, CK, BNP, BMP, CBC, PT, PTT #### [place] [address] USAProthrombin time (PT)Ordered By: Carlo Grimaldo on 55-56-2779HW Coag (PPP) [Time]10.4 sNormal9.0-12.9A[facility]ike Medical CenterComment on above:A hematocrit value greater than 55% may lead to inaccurate results in coagulation testing. Patientshaving hematocrit values >55% require a special collection tube for coagulation studies. Please contact the laboratory at [phone] for redraw instructions.Result Comment: A hematocrit value greater than 55% may lead to inaccurate results in coagulation testing. Patients having hematocrit values >55% require a special collection tube for coagulation studies. Please contact the laboratory at [phone] for redraw instructions.Performed By: #### HS TROP, CK, BNP, BMP, CBC, PT, PTT #### [address] [address] [facility]OSPITALRespiratory (Upper) Panel, PCRon 67-29-1263Sxrjjncfiar (Upper) Panel, PCRAdenovirus Not detected Bordetella parapertussis [...] Influenza A H3 Blank Space PERFORMED BY: [address] [address] PATHOLOGIST TETRYL WRINGER OPERATOR JOSÉ MIGUEL RON M.D.[facility] Physician GroupComment on above:Performed By: #### RESP PANEL UPP., BIOFIRECOVNOTDE #### [facility] [address] [id number] USARespiratory pathogens DNA and RNA panel - Nasopharynx by JANIA with non-probe detectionOrdered By: Carlo Grimaldo on 53-55-3026Yiudnmhqntk pathogens DNA and RNA panel JANIA+non-probe (Nph)[facility] Serum or plasma anion gap determinationOrdered By: Carlo Grimaldo on 01-19-2024 Anion gap [Moles/Vol]13.8 mmol/LNormal6.0-15.0[facility] Comment on above:Performed By: #### HS TROP, CK, BNP, BMP, CBC, PT, PTT #### [place] [address] USASodium [Moles/volume] in Serum or PlasmaOrdered By: Carlo Grimaldo on 37-97-5392Xbttwx [Moles/Vol]138 mmol/QXoksrx435-270ShrqbixbdAdena Pike Medical CenterComment on above:Performed By: #### HS TROP, CK, BNP, BMP, CBC, PT, PTT #### [place] [id number] USAStool Occult Bl. Scr. (Guaiac)on 23-26-1663Bxefs Occult Bl. Scr. (Guaiac)Occult Blood Negative for Occult Blood by Guaiac Methodology Reference range = Negative PERFORMED BY: [place] [address] PATHOLOGIST TETRYL WRINGER OPERATOR JOSÉ MIGUEL RON M.D.[facility] Physician GroupComment on above:Performed By: #### HS TROP, CK, BNP, BMP, CBC, PT, PTT #### [place] [id number] USATroponin I High Sensitivityon 91-41-9652Jwvvhtya I High Agwygszlttc76.4 pg/mLHigh0.0-15.0[facility] Physician GroupComment on above: Result Comment: PERFORMED BY: [place] [address] PATHOLOGIST TETRYL WRINGER OPERATOR JOSÉ MIGUEL RON M.D.Performed By: #### HS TROP, CK, BNP, BMP, CBC, PT, PTT #### [place] [address] USATroponin I High Iwizrwjipky32.7 pg/mLNormal0.0-15.0[facility] Physician GroupComment on above:Result Comment: PERFORMED BY: [place] [address] PATHOLOGIST TETRYL WRINGER OPERATOR JOSÉ MIGUEL RON M.D.Performed By: #### HS TROP, CK, BNP, BMP, CBC, PT, PTT #### [place] [address] USATroponin I High Ddqdngytjvz22.7 pg/mLNormal0.0-15.0[facility] Physician [place] [facility] CenterComment on above:Result Comment: PERFORMED BY: [place] [address] PATHOLOGIST TETRYL WRINGER OPERATOR JOSÉ MIGUEL RON M.D.Performed By: #### HS TROP, CK, BNP, BMP, CBC, PT, PTT #### [place] [address] USATroponin I.cardiac [Mass/volume] in Serum or Plasma by Detection limit <= 0.01 ng/Ordered By: Carlo Grimaldo on 77-76-4007Fekkjgsn I.cardiac DL <= 0.01 ng/mL [Mass/Vol]14.7 pg/mL0.0-15.0A[facility] Pike Medical CenterUrea nitrogen [Mass/volume] in Serum or PlasmaOrdered By: Carlo Grimaldo on 30-98-5526Kvbv nitrogen [Mass/Vol]11 mg/dLNormal7-25A[facility] Pike Medical CenterComment on above:Performed By: #### HS TROP, CK, BNP, BMP, CBC, PT, PTT #### [facility] [address] [place] [address] USAXR chest 2V*on 68-79-3650QB chest 2V*[facility] Main [place] [address] [place] [address] XRay Report Signed Patient: Jonatan Olivarez MR#: [id number] : 1960 Acct:[id number] Age/Sex: 63 / F ADM Date: 01/19/24 Loc: ER Room: Type: [facility] ER Attending Dr: Copies to: Carlo [...] Lindsey Menchaca M.D.01/19/2024 6:26 PM Dictation Location: [place] [address] Transcribed By: [facility] 01/19/241825 Dictated By: Lindsey Menchaca MD 01/19/241822 Signed By: 01/19/241825[facility] Physician GroupCBC AND AUTO DIFFon 01-18-2024 ABSOLUTE BASOPHIL0.2 X10E9/LNormal0.0-0.2[facility] HospitalComment on above:Performed By: #### CBCA, 94726-5, CMP #### [facility] ([id number]) [address], [address] [place], [place] [address]ERSMPMCO NEUTROPHIL5.2 X10E9/LNormal1.5-6.6Pro[facility]oudhary HospitalComment on above:Performed By: #### PRIYANK, , CMP #### [facility] ([id number]) [address], [address] [place], [place] [address]Fjobilqdi/100 WBC (Bld)2.3 %NormalMemorial Health System Comment on above:Performed By: #### PRIYANK, , CMP #### [facility] ([id number]) [address], [address] [place], [place] [address]Dxxymjiqrgf (Bld) [#/Vol]0.3 10*3/uLNormal0.0-0.4ProKettering Health Dayton HospitalComment on above:Performed By: #### PRIYANK, , CMP #### [facility] ([id number]) [address], [address] [place], [place] [address]Nvbaqnfhnik/100 WBC (Bld)3.5 %NormalMemorial Health System Comment on above:Performed By: #### PRIYANK, , CMP #### [facility] ([id number]) [address], [address] [place], [place] [address]Chjtmmlweju distribution width (RBC) [Ratio]19.5 %High11.5-15.0 [facility] HospitalComment on above:Performed By: #### PRIYANK, , CMP #### [facility] ([id number]) [address], [address] [place], [place] [address]Tzwqinvfiu (Bld) [Volume fraction]24.1 %Fxj73-54YnyJrnclf [place] HospitalComment on above:Performed By: #### PRIYANK, , CMP #### [facility] ([id number]) [address], [address] [place], [place] [address]Hbldhnvdez (Bld) [Mass/Vol]7.9 g/dLLow11.7-15.5[facility] HospitalComment on above:Performed By: #### PRIYANK, , CMP #### [facility] ([id number]) [address], [address] [place], [place] [address]Eycxsjqaexm (Bld) [#/Vol]1.6 10*3/uLNormal1.0-3.5ProMedTriHealth [facility] Hospital HospitalComment on above:Performed By: #### PRIYANK, , CMP #### [facility] ([id number]) [address], [address] [place], [place] [address]Ekhopwqrhfe/100 WBC (Bld)20.4 %NormalProKettering Health Dayton Hospital Comment on above:Performed By: #### PRIYANK, , CMP #### [facility] ([id number]) [address], [address] [place], [place] [address]BVQ (RBC) [Entitic mass]30.0 oiYcygbt68-94QupUpefxa [place] HospitalComment on above:Performed By: #### PRIYANK, , CMP #### [facility] ([id number]) [address], [address] [place], [place] [address]YKOT (RBC) [Mass/Vol]32.9 g/nZOnsjvg01-04SqxSljcyi [place] HospitalComment on above:Performed By: #### PRIYANK, , CMP #### [facility] ([id number]) [address], [address] [place], [place] [address]RXB (RBC) [Entitic vol]91 xHZwimfn59-281XdlHgyasi Chelsea HospitalComment on above:Performed By: #### PRIYANK, , CMP #### [facility] ([id number]) [address], [address] [place], [place] [address]Mukvupoyr (Bld) [#/Vol]0.7 10*3/uLNormal0-0.9[facility]hary HospitalComment on above:Performed By: #### PRIYANK, , CMP #### [facility] ([id number]) [address], [address] [place], [place] [address]Loaiurvmd/100 WBC (Bld)8.6 %NormalMemorial Health System Comment on above:Performed By: #### PRIYANK, , CMP #### [facility] ([id number]) [address], [address] [place], [place] [address]Vadfiqfzxgx/100 WBC (Bld)65.2 %NormalMemorial Health System Comment on above:Performed By: #### PRIYANK, , CMP #### [facility] ([id number]) [address], [address] [place], [place] [address]Ysforhmv mean volume (Bld) [Entitic vol]7.6 fLNormal7-12 [facility]hary HospitalComment on above:Performed By: #### PRIYANK, , CMP #### [facility] ([id number]) [address], [address] [place], [place] [address]Zmbrdlnmj (Bld) [#/Vol]275 10*3/iSWdtsft907-395JhnPfxzrx [facility]hary HospitalComment on above:Performed By: #### PRIYANK, , CMP #### [facility] ([id number]) [address], [address] [place], [place] [address]OHR COUNT2.64 X10E12/LLow3.80-5.20[facility] Comment on above:Performed By: #### PRIYANK, , CMP #### [facility] ([id number]) [address], [address] [place], [place] [address]DTV (Bld) [#/Vol]7.9 10*3/uLNormal4.0-11.0[facility] HospitalComment on above:Performed By: #### PRIYANK , CMP #### [facility] ([id number]) [address], [address] [place], [place] [address]MXCYLSORMXKIF METABOLIC PANELon 74-78-7550Lcpunav [Mass/Vol]3.1 g/dLLow3.2-5.3[facility] HospitalComment on above:Performed By: #### PRIYANK , CMP #### [facility] ([id number]) [address], [address] [place], [place] [address]KKD [Catalytic activity/Vol]233 U/JEcnn85-302VknUjxqru [facility] HospitalComment on above:Performed By: #### PRIYANK , CMP #### [facility] ([id number]) [address], [address] [place], [place] [address]VPE [Catalytic activity/Vol]18 U/LNormal0-31ProMedTri[facility] HospitalComment on above:Performed By: #### PRIYANK , CMP #### [facility] ([id number]) [address], [address] [place], [place] [address]Zlpod gap [Moles/Vol]6 mmol/LNormal5-15[facility] Comment on above:Performed By: #### PRIYANK , CMP #### [facility] ([id number]) [address], [address] [place], [place] [address]EFV [Catalytic activity/Vol]30 U/LNormal0-41[facility] HospitalComment on above:Performed By: #### PRIYANK , CMP #### [facility] ([id number]) [address], [address] [place], [place] [address]Wymkreoca [Mass/Vol]0.3 mg/dLNormal0.3-1.2[facility] HospitalComment on above:Performed By: #### PRIYANK, , CMP #### [facility] ([id number]) [address], [address] [place], [place] [address]Xgktwuf [Mass/Vol]8.3 mg/dLLow8.5-10.5PPaulding County Hospital Comment on above:Performed By: #### PRIYANK, , CMP #### [facility] ([id number]) [address], [address] [place], [place] [address]Fbjtvujy [Moles/Vol]99 mmol/AMyeayd96-536CrxLmbrja [place] HospitalComment on above:Performed By: #### PRIYANK , CMP #### [facility] ([id number]) [address], [address] [place], [place] [address]IM2 [Moles/Vol]34 mmol/ZFdvv81-64XfaUelwlcPaulding County Hospital Comment on above:Performed By: #### PRIYANK, , CMP #### [facility] ([id number]) [address], [address] [place], [place] [address]Bayfqmnijw [Mass/Vol]0.67 mg/dLNormal0.40-1.00Memorial Health SystemComment on above:Result Comment: METHOD TRACEABLE TO IDMS STANDARD Performed By: #### PRIYANK, , CMP #### [facility] ([id number]) [address], [address] [place], [place] [address]mITF (CKD-EPI) NON-RACE DEPENDENT>90Normal>59ProOhiohealth O'Bleness HospitalComment on above:Result Comment: Reported eGFR is based on the CKD-EPI 2020 equation that does not use a race coefficient.Performed By: #### PRIYANK, , CMP #### [facility] ([id number]) [address], [address] [place], [place] [address]Dfiimmg [Mass/Vol]117 mg/oENndi37-82XhtEkewfeMemorial Health System Comment on above:Performed By: #### PRIYANK , CMP #### [facility] ([id number]) [address] [place], [place] [address]Jpkjztftg [Moles/Vol]4.3 mmol/LNormal3.5-5.0ProKettering Health Dayton HospitalComment on above:Performed By: #### PRIYANK , CMP #### [facility] ([id number]) [address], [address] [place] [address]Hbzikwa [Mass/Vol]5.4 g/dLLow6.0-8.0ProOhiohealth O'[facility]len[facility] Hospital Comment on above:Performed By: #### PRIYANK , CMP #### [facility] ([id number]) [address] [place] [address]Uoztea [Moles/Vol]139 mmol/ZJtivgk159-146PuiUeyfdc [place] HospitalComment on above:Performed By: #### PRIYANK , CMP #### [facility] ([id number]) [address], [address] [place], [place] [address]Vpmk nitrogen [Mass/Vol]16 mg/dLNormal5-27ProKettering Health Dayton HospitalComment on above:Performed By: #### PRIYANK , CMP #### [facility] ([id number]) [address], [address] [place], [place] [address]POYBWNJSUho 78-09-5720Csuqsmdpc [Mass/Vol]1.8 mg/dLNormal1.8-2.6 ProMWVUMedicine [facility] HospitalComment on above:Performed By: #### PRIYANK , CMP #### [facility] ([id number]) [address], [address] [place], [place] [address]BWH AND AUTO DIFFon 94-29-3091LVDIGQFU BASOPHIL0.1 X10E9/LNormal 0.0-0.2[facility] HospitalComment on above:Performed By: #### 78054-7, CBCA, CMP #### [facility] ([id number]) [address], [address] [place], [place] [address]GIUEKVON NEUTROPHIL6.4 X10E9/LNormal1.5-6.6[facility] HospitalComment on above:Performed By: #### 86402-6, CBCA, CMP #### [facility] ([id number]) [address], [address] [place], [place] [address]Flbsejjcu/100 WBC (Bld)1.6 %NormalMemorial Health System Comment on above:Performed By: #### 51826-0, CBCA, CMP #### [facility] ([id number]) [address] [place], [place] [address]Gcihzjwyrvd (Bld) [#/Vol]0.3 10*3/uLNormal0.0-0.4ProKettering Health Dayton HospitalComment on above:Performed By: #### 79325-6, CBCA, CMP #### [facility] ([id number]) [address] [place], [place] [address]Zcgsyztibok/100 WBC (Bld)3.4 %NormalMemorial Health System Comment on above:Performed By: #### 86074-9, CBCA, CMP #### [facility] ([id number]) [address], [address] [place], [place] [address]Apmfnkgludb distribution width (RBC) [Ratio]19.5 %High11.5-15.0 [facility] HospitalComment on above:Performed By: #### 58729-1, CBCA, CMP #### [facility] ([id number]) [address], [address] [place], [place] [address]Mgenwsojug (Bld) [Volume fraction]24.1 %Jvw46-39BeaAqxbrj [facility] HospitalComment on above:Performed By: #### 24835-9, CBCA, CMP #### [facility] ([id number]) [address], [address] [place], [place] [address]Lrtlnccbjb (Bld) [Mass/Vol]8.0 g/dLLow11.7-15.5PKettering Health Main Campus HospitalComment on above:Performed By: #### 55016-1, CBCA, CMP #### [facility] ([id number]) [address], [address] [place], [place] [address]Yayuxekdvxd (Bld) [#/Vol]1.7 10*3/uLNormal1.0-3.5PKettering Health Main Campus HospitalComment on above:Performed By: #### 56396-7, CBCA, CMP #### [facility] ([id number]) [address] [place], [place] [address]Udrwmlhyzbr/100 WBC (Bld)18.8 %NormalProKettering Health Dayton Hospital Comment on above:Performed By: #### 81129-0, CBCA, CMP #### [facility] ([id number]) [address], [address] [place], [place] [address]RXY (RBC) [Entitic mass]30.2 tkYucfzl19-11RqdOztvab [place] HospitalComment on above:Performed By: #### 66931-2, CBCA, CMP #### [facility] ([id number]) [address], [address] [place], [place] [address]OHLK (RBC) [Mass/Vol]33.3 g/dUWmhvav06-21LikVpnztu [place] HospitalComment on above:Performed By: #### 03740-0, CBCA, CMP #### [facility] ([id number]) [address], [address] [place], [place] [address]LPG (RBC) [Entitic vol]91 tKNsrodz59-966WfiVldlwy [place] HospitalComment on above:Performed By: #### 44456-4, CBCA, CMP #### [facility] ([id number]) [address], [address] [place], [place] [address]Hyeftxvqq (Bld) [#/Vol]0.7 10*3/uLNormal0-0.9ProDayton Va Medical Centerca Chelsea HospitalComment on above:Performed By: #### 22289-2, CBCA, CMP #### [facility] ([id number]) [address], [address] [place], [place] [address]Ejfbjuyeo/100 WBC (Bld)7.2 %NormalMemorial Health System Comment on above:Performed By: #### 72903-3, CBCA, CMP #### [facility] ([id number]) [address], [address] [place], [place] [address]Zcqzejxhdyd/100 WBC (Bld)69.0 %NormalMemorial Health System Comment on above:Performed By: #### 74338-2, CBCA, CMP #### [facility] ([id number]) [address], [address] [place], [place] [address]Eedegflu mean volume (Bld) [Entitic vol]8.3 fLNormal7-12 [facility] HospitalComment on above:Performed By: #### 18899-7, CBCA, CMP #### [facility] ([id number]) [address], [address] [place], [place] [address]Hywarrljj (Bld) [#/Vol]288 10*3/eVSxgctt695-589TpkSvoxxm [place] HospitalComment on above:Performed By: #### 78534-0, CBCA, CMP #### [facility] ([id number]) [address], [address] [place], [place] [address]NJE COUNT2.66 X10E12/LLow3.80-5.20[facility] Comment on above:Performed By: #### 23447-2, CBCA, CMP #### [facility] ([id number]) [address], [address] [place], [place] [address]KRW (Bld) [#/Vol]9.3 10*3/uLNormal4.0-11.0[facility] HospitalComment on above:Performed By: #### 81266-0, CBCA, CMP #### [facility] ([id number]) [address], [address] [place], [place] [address]NNZYECJTGXIWP METABOLIC PANELon 30-69-5821Twgbtkr [Mass/Vol]3.1 g/dLLow3.2-5.3[facility] HospitalComment on above:Performed By: #### 32548-1, CBCA, CMP #### [facility] ([id number]) [address] [place], [place] [address]PBG [Catalytic activity/Vol]86 U/NDicpbr22-448BemUnlaxn [facility] HospitalComment on above:Performed By: #### 83956-8, CBCA, CMP #### [facility] ([id number]) [address], [address] [place], [place] [address]CFA [Catalytic activity/Vol]8 U/LNormal0-31ProMedTriHealth [facility] HospitalComment on above:Performed By: #### 29656-0, CBCA, CMP #### [facility] ([id number]) [address], [address] [place], [place] [address]Cvdhh gap [Moles/Vol]9 mmol/LNormal5-15[facility] Comment on above:Performed By: #### 30764-7, CBCA, CMP #### [facility] ([id number]) [address], [address] [place], [place] [address]LSK [Catalytic activity/Vol]15 U/LNormal0-41[facility] HospitalComment on above:Performed By: #### 39106-0, CBCA, CMP #### [facility] ([id number]) [address], [address] [place], [place] [address]Tnbljkhob [Mass/Vol]0.3 mg/dLNormal0.3-1.2PPaulding County HospitalComment on above:Performed By: #### 23644-5, CBCA, CMP #### [facility] ([id number]) [address], [address] [place], [place] [address]Brczdsq [Mass/Vol]8.4 mg/dLLow8.5-10.5PPaulding County Hospital Comment on above:Performed By: #### 26531-0, CBCA, CMP #### [facility] ([id number]) [address], [address] [place], [place] [address]Dgzpahhh [Moles/Vol]101 mmol/TCtiqit62-224XwlJswlqq [place] HospitalComment on above:Performed By: #### 83454-4, CBCA, CMP #### [facility] ([id number]) [address], [address] [place], [place] [address]VX2 [Moles/Vol]31 mmol/NIpclyp91-46YutAbqrpgPaulding County Hospital Comment on above:Performed By: #### 25924-2, CBCA, CMP #### [facility] ([id number]) [address], [address] [place], [place] [address]Mxkntjhjek [Mass/Vol]0.75 mg/dLNormal0.40-1.00ProOhiohealth O'Bleness HospitalComment on above:Result Comment: METHOD TRACEABLE TO IDMS STANDARD Performed By: #### 42431-5, CBCA, CMP #### [facility] ([id number]) [address], [address] [place], [place] [address]DIX/1.73 sq M.predicted among non-blacks MDRD (S/P/Bld) [Vol rate/Area]89 mL/min/{1.73_m2}Normal>59ProOhiohealth O'Bleness HospitalComment on above: Result Comment: Reported eGFR is based on the CKD-EPI 2020 equation that does not use a race coefficient.Performed By: #### 70789-0CHANELLEA, CMP #### [facility] ([id number]) [address], [address] [place], [place] [address]Cetqdbo [Mass/Vol]112 mg/hZVwjx88-31PbcNzynoaOhiohealth O'Bleness Hospital Comment on above:Performed By: #### 73449-9, CBCA, CMP #### [facility] ([id number]) [address] [place], [place] [address]Bmtmdimza [Moles/Vol]4.2 mmol/LNormal3.5-5.0ProOhiohealth O'Bleness HospitalComment on above:Performed By: #### 95998-8 CBCA, CMP #### [facility] ([id number]) [address], [address] [place], [place] [address]Nrwzvso [Mass/Vol]5.4 g/dLLow6.0-8.0[facility] Comment on above:Performed By: #### 05112-5, CBCA, CMP #### [facility] ([id number]) [address], [address] [place], [place] [address]Amjvof [Moles/Vol]141 mmol/MGyafpl605-782XmfZtcmal Toledo HospitalComment on above:Performed By: #### 68421-3, CBCA, CMP #### [facility] ([id number]) [address], [address] [place], [place] [address]Wwja nitrogen [Mass/Vol]17 mg/dLNormal5-27ProOhiohealth O'Bleness HospitalComment on above:Performed By: #### 60994-1, CBCA, CMP #### [facility] ([id number]) [address], [address] [place], [place] [address]HQKGXVCXRay 75-69-0641Upcgppdql [Mass/Vol]2.0 mg/dLNormal1.8-2.6 [facility] Health SystemComment on above:Performed By: #### 05108-4, CBCA, CMP #### [facility] ([id number]) [address] [place] [address], [address] [place], [place] [address]Ekzknbbq Pathologyon 69-12-0909Cunxotig PathologyNormalProMedica Licking Memorial HospitalComment on above:Result Comment: [employer] [facility] [address] [place] [address] Surgical Pathology Consultation Patient Name:JONATAN OLIVAREZ:1960 (Age: 63)Gender:FTaken:4Reported:01/22/2024hysician(s):Jazmine Barnard MD ([phone])Copy To: Rec. #:[id number]: #[id number] Final Pathologic Diagnosis 1. Gastric ulcer biopsy: Reactive gastritis/gastropathy. No dysplasia or intestinal metaplasia identified. Immunohistochemical stain for Helicobacter pylori is negative. 2. Distal esophageal biopsy: Squamous esophageal and cardiac type mucosa showing active chronic inflammation and reactive squamous changes suggestive of reflux injury. No dysplasia or goblet cell metaplasia identified. Report Electronically Signed Out ao/01/22/2024donte Bowman MD Interpretation performed at [facility], [address] [place] [id number], License number: [id number]. Clinical History Upper GI bleed. 1. r/o h. pylori. 2. r/o barretts. Gross Description 1. Received in formalin labeled, SHER, gastric ulcer are 4 sanchez delicate, focally erythematous soft tissue fragments, 0.4-0.5 cm in greatest dimension. The specimens are filtered and submitted insingle cassette. (1, ns, [id number], m3) TB 2. Received in formalin labeled, SHER, esophageal distal biopsy are 5 pale- sanchez delicate soft tissue bits, 0.1-0.4 cm in greatest dimension. The specimens are filtered and submitted in single cassette. (1, ns, [id number], m3) [facility]/01/17/2024GR Specimen(s) Received 1: ulcer, gastric 2: Esophageal distal biopsy Fee Codes(s): 1; 15758 2; 699[address]JNZDP OCCULT BLOODon [id number].gastrointestinal Ql (Stl) PositiveAbnormalNEGProTexas Children'S Hospital The WoodlandsComment on above:Performed By: #### 2335-8 ####[facility] ([id number])[address] [place] [id number] AND HCTon [id number] (Bld) [Volume fraction] 37.0 %Siixco43-06ArcShatwiTexas Children'S Hospital The WoodlandsComment on above:Performed By: #### HH ####[facility] ([id number])[address] [place] [address] 35527Iqfrqcnwxp (Bld) [Mass/Vol]12.4 g/oFIivhqf62.7-15.5 ProMedicOjai Valley Community HospitalComment on above:Performed By: #### HH ####[facility] ([id number])[address] [place] [address] 50700Lfjflhs (P nathalie) [Moles/Vol]on 46-11-9252QWCGFHH W/REFLEX1.3 mmol/LNormal 0.4-2.0ProTexas Children'S Hospital The WoodlandsComment on above:Result Comment: Result did not trigger repeat Lactate,re-order if needed.Performed By: #### 38911-4 ####[facility] ([id number])[address] [place] [address] 43883ERIXYBLAFrs 72-42-4286Njdzqnqkw [Mass/Vol]2.2 mg/dLNormal 1.8-2.6ProTexas Children'S Hospital The WoodlandsComment on above:Performed By: #### 24598-3, 2823-3 ####[facility] ([id number])[address] [place] [address] 32441RIVAOGMXZmi 54-92-7101Gqjcziiym [Moles/Vol]4.1 mmol/L Normal3.5-5.0ProTexas Children'S Hospital The WoodlandsComment on above:Performed By: #### 84065-0, 2823-3 ####[facility] ([id number])[address] [place] [address] 50177HOSDBT BLOOD GASon 93-74-6185NFHRB'S TESTNormal ProMedica Scripps Memorial HospitalComment on above:Performed By: #### VBG ####[facility] ([id number])[address] [place] [address] 04929Mptz excess Calc (Bld) [Moles/Vol]4.0 mmol/LHigh0.0-2.0ProTexas Children'S Hospital The WoodlandsComment on above:Performed By: #### VBG ####[facility] ([id number])[address] [place] [address] 30140Ozst temperature 98.6 [degF]Dutdnd19.0ProTexas Children'S Hospital The WoodlandsComment on above:Performed By: #### VBG ####[facility] ([id number])[address] [place] [address] 99483PME5 (Bld) [Moles/Vol]30.3 mmol/LHigh20.0-24.0ProTexas Children'S Hospital The WoodlandsComment on above:Performed By: #### VBG ####[facility] ([id number])[address] [place] [address] 69720KOJB. O2 CONC.28 %NormalProTexas Children'S Hospital The WoodlandsComment on above:Performed By: #### VBG ####[facility] ([id number])[address] [place] [address] 40035Yzqxxt saturation in Blood99.0 %Normal>80.0Upper Valley Medical CenterComment on above:Performed By: #### VBG ####[facility] ([id number])[address] [place] [address], [place] [address]DVBZJN SOURCERoomAirNoParkview Health Bryan HospitalComment on above:Performed By: #### VBG ####[facility] ([id number])[address] [place] [address], [place] [address]BLB5, CQWKEW01.0 SEQUAuja59-63JygSulfvyUpper Valley Medical Center Comment on above:Performed By: #### VBG ####[facility] ([id number])[address] [place] [address], [place] [address]XW, VENOUS7.357 Normal7.320-7.420ProTexas Children'S Hospital The WoodlandsComment on above:Performed By: #### VBG ####[facility] ([id number])[address] [place] [address], [place] [address]SU6, JAZUDP724 VTLDBadv56-30CzhYzncuzUpper Valley Medical Center Comment on above:Performed By: #### VBG ####[facility] ([id number])[address] [place] [address] 95895AAZBMQ SITEN/A NormalUpper Valley Medical CenterComment on above:Performed By: #### VBG ####[facility] ([id number])[address] [place] [address], [place] [address]XUGRYZ TYPEVENOUSNoParkview Health Bryan HospitalComment on above:Performed By: #### VBG ####[facility] ([id number])[address] [place] [address] 87936OD CHEST 2 VWSon [id number] CHEST 2 SNoParkview Health Bryan HospitalCult,Urineon 98-19-7133Vrsy,UrineSpecimen Description .CLEAN CATCH URINE Special Requests Site: [...] <=4 SUSCEPTIBLE Tobramycin <=1 SUSCEPTIBLE Trimethoprim/Sulfa >=320 RESISTANTResistantMHarrison Community HospitalComment on above:Performed By: #### RADHA BOWMANX #### [address] [place] [address] [employer] Supervisor: Stacy Mckenzie Natri. Peptideon 63-07-8982Zepztukiiat peptide B (Bld) [Mass/Vol]7206 pg/mLHigh0-125MerMilford HospitalComment on above:Performed By: #### YULISAX, CDP #### [address] [place] [address] [employer] Processing Supervisor: ANNITA Mckenzie with Diffon 12-30-2966Xbh. Basophil0.06 k/uL Normal0.00-0.20MerMercy Health Fairfield Hospital HospitalComment on above:Performed By: #### YULISAX, CDP #### [address] [place], [facility] Phosphorus Processing Supervisor: Cruz Mckenzie.Imm.Granulocyte0.04 k/uLNormal0.00-0.30MerMercy Health Fairfield Hospital HospitalComment on above:Performed By: #### YULISAX, CDP #### [address] [place], [place] 6774183 [employer] Supervisor: Cruz Mckenzie.Neutrophil (Seg)8.64 k/uLHigh1.50-8.10MerMercy Health Fairfield Hospital HospitalComment on above:Performed By: #### CMPX, CDP #### [address] [place], [place] 0926383 Phosph[employer] Supervisor: Apolinar Lemus MDBasophils/100 WBC (Bld)1 %Normal0-2Mercy Alger HospitalComment on above:Performed By: #### CMPX, CDP #### [address] [place], [facility] Phosphorus Processing Supervisor: Apolinar Lemus MDEosinophils (Bld) [#/Vol]0.03 10*3/uLNormal 0.00-0.44Mercy Alger HospitalComment on above:Performed By: #### CMPX, CDP #### [address] [place], [facility] Phosph[employer] Processing Supervisor: JADEN Mckenzieosinophils/100 WBC (Bld)0 %Low1-4MerMercy Health Fairfield Hospital HospitalComment on above:Performed By: #### CMPX, CDP #### [address] [place], [facility] Phosph[employer] Supervisor: Apolinar Lemus MDErythrocyte distribution width (RBC) [Ratio]16.9 % High11.8-14.4[facility] HospitalComment on above:Performed By: #### CMPX, CDP #### [address] [place], [facility] Phosph[employer] Processing Supervisor: Apolinar Lemus MDHematocrit (Bld) [Volume fraction]41.8 %Normal 36.3-47.1Mercy [facility] HospitalComment on above:Performed By: #### CMPX, CDP #### [address] [place], [facility] Phosph[employer] Processing Supervisor: Apolinar Lemus MDHemoglobin (Bld) [Mass/Vol]13.7 g/dLNormal 11.9-15.1Mercy [facility] HospitalComment on above:Performed By: #### CMPX, CDP #### [address] [place], [place] 6364183 [employer] Supervisor: Raine Mckenzieture granulocytes/100 WBC (Bld)0 %Gtiaac9OqlueCincinnati Children'S Hospital Medical CenterComment on above:Performed By: #### CMPX, CDP #### [address] [place], [place] 9553783 Phosph[employer] Supervisor: Eden Mckenziemphocytes (Bld) [#/Vol]0.77 10*3/uLLow1.10-3.70 [facility] HospitalComment on above:Performed By: #### CMPX, CDP #### [address] [place], [place] 4745783 [employer] Processing Supervisor: Eden Mckenziemphocytes/100 WBC (Bld)8 %Qxb24-99Ompxi [facility]iffin HospitalComment on above:Performed By: #### CMPX, CDP #### [address] [place], [place] 7397483 [employer] Supervisor: BUZZ MckenzieCH (RBC) [Entitic mass]30.0 wwUawddb89.2-33.5 [facility] HospitalComment on above:Performed By: #### CMPX, CDP #### [address] [place] [address] Phosph[employer] Processing Supervisor: ELLA MckenzieC (RBC) [Mass/Vol]32.8 g/rIDzknkk11.4-34.8C[facility] Hospital Medical CenterComment on above:Performed By: #### CMPX, CDP #### [address] [place] [address] Phosph[employer] Supervisor: BUZZ MckenzieCV (RBC) [Entitic vol]91.5 aDIrerfe02.6-102.9 [facility] HospitalComment on above:Performed By: #### CMPX, CDP #### [address] [place] [address] Phosph[employer] Processing Supervisor: BUZZ Mckenzieonocytes (Bld) [#/Vol]0.44 10*3/uLNormal0.10-1.20 [facility] Medical CenterComment on above:Performed By: #### CMPX, CDP #### [address] [place], [place] 1237983 [employer] Processing Supervisor: BUZZ Mckenzieonocytes/100 WBC (Bld)4 %Normal3-12C[facility] Hospital Medical CenterComment on above:Performed By: #### CMPX, CDP #### [address] [place] [address] Phosph[employer] Processing Supervisor: Guerda Mckenzieutrophil (Seg)87 %Mbrb85-54CyynhCincinnati Children'S Hospital Medical Center Comment on above:Performed By: #### CMPX, CDP #### [address] [place], [facility] Phosph[employer] Processing Supervisor: Apolinar Lemus MDNRBC Automated0.0 per 100 WBCNormal0.0C[facility] Hospital Medical CenterComment on above:Performed By: #### CMPX, CDP #### [address] [place], [place] 1087583 Phosph[employer] Processing Supervisor: Rajat Mckenzietezee mean volume (Bld) [Entitic vol]9.0 fL Normal8.1-13.5C[facility] Hospital Medical CenterComment on above:Performed By: #### CMPX, CDP #### [address] [place], [place] 4936883 [employer] Supervisor: ROJAS Mckenzielatelets (Bld) [#/Vol]200 10*3/uIEoazcp802-233 [facility] Medical CenterComment on above:Performed By: #### CMPX, CDP #### [address] [place], [place] 1170183 Phosph[employer] Processing Supervisor: GEOVANY Mckenzie ([facility]) [#/Vol]4.57 10*6/uLNormal3.95-5.11[facility] HospitalComment on above:Performed By: #### CMPX, CDP #### [address] [place], [place] 0765683 Phosph[employer] Processing Supervisor: RAZA Mckenzie ([facility]) [#/Vol]10.0 10*3/uLNormal3.5-11.3MMary [facility] HospitalComment on above:Performed By: #### CMPX, CDP #### [address] [place], [place] 7474283 Phosph[employer] Processing Supervisor: ANNITA Mckenzieomp Metabolic Profon 47-72-1927Bzhqvpj [Mass/Vol] 3.4 g/dLLow3.5-5.2MMary [facility] HospitalComment on above:Performed By: #### CMPX, CDP #### [address] [place] [address] Phosph[employer] Processing Supervisor: Apolinar Lemus MDAlbumin/Glob Ratio1.0Asrndw9.0-2.5C[facility] Hospital Medical CenterComment on above:Performed By: #### CMPX, CDP #### [address] [place], [place] 9051283 Phosph[employer] Processing Supervisor: Germania Mckenziekaline Wmys211 U/ZPbkh59-530Aaenc Tiffin HospitalComment on above:Performed By: #### CMPX, CDP #### [facility] [address] [place] [address] Dr. [place], [place] 1446083 Phosph[employer] Processing Supervisor: Apolinar Lemus MDALT [Catalytic activity/Vol]24 U/XBysdbg77-62Svqie [facility] HospitalComment on above:Performed By: #### CMPX, CDP #### [facility] [address] [place] [address] Dr. [place], [place] 3263783 Phosph[employer] Processing Supervisor: Apolinar Sturtz, MDAnion gap [Moles/Vol]14 mmol/LNormal9-16[facility] Medical CenterComment on above:Performed By: #### CMPX, CDP #### [address] [place], [place] 3206683 [employer] Processing Supervisor: Apolinar Lemus MDAST [Catalytic activity/Vol]22 U/FOsgoll52-15ZbwzjCincinnati Children'S Hospital Medical CenterComment on above:Performed By: #### CMPX, CDP #### [address] [place] [address] Phosph[employer] Processing Supervisor: Apolinar Lemus MDBilirubin [Mass/Vol]mg/dLNormal0.00-1.20[facility] Medical CenterComment on above:Performed By: #### CMPX, CDP #### [address] [place], [place] 1986083 [employer] Processing Supervisor: Apolinar Lemus MDBUN/CRE Dedln27Aptwtl4-46Qiaav [facility] Comment on above:Performed By: #### CMPX, CDP #### [address] [place] [address] [employer] Supervisor: Apolinar Lemus MDCalcium [Mass/Vol]8.6 mg/dLNormal8.6-10.4[facility] Medical CenterComment on above:Performed By: #### CMPX, CDP #### [address] [place] [address] Phosph[employer] Processing Supervisor: Apolinar Lemus, MDChloride [Moles/Vol]100 mmol/WYxgisn96-974MzofnCincinnati Children'S Hospital Medical CenterComment on above:Performed By: #### CMPX, CDP #### [address] [place], [place] 4795083 [employer] Processing Supervisor: Apolinar Lemus MDCO2 [Moles/Vol]20 mmol/ACqhjyr99-68Ysypd [facility] HospitalComment on above:Performed By: #### CMPX, CDP #### [address] [place] [address] Phosph[employer] Processing Supervisor: ANNITA Mckenziereatinine [Mass/Vol]1.4 mg/dLHigh0.50-0.90[facility] Medical CenterComment on above:Performed By: #### CMPX, CDP #### [address] [place] [address] Phosph[employer] Processing Supervisor: Apolinar Lemus MDGFR/1.73 sq M.predicted among non-blacks MDRD (S/P/Bld) [Vol rate/Area]44 mL/min/{1.73_m2}Low>60MerMilford HospitalComment on above:Result Comment: These results are [...] tubular secretion.Performed By: #### CMPX, CDP #### [address] [place] [address] Phosph[employer] Processing Supervisor: Apolinar Lemus MDGlucose [Mass/Vol]111 mg/dEYxuw20-21Qqqwa Alger HospitalComment on above:Performed By: #### CMPX, CDP #### [address] [place] [address] Phosph[employer] Processing Supervisor: ROJAS Mckenzieotassium [Moles/Vol]4.2 mmol/LNormal3.7-5.3MMary [facility] HospitalComment on above:Performed By: #### CMPX, CDP #### [address] [place] [address] Phosph[employer] Processing Supervisor: Apolinar Lemus MDProtein [Mass/Vol]6.3 g/dLLow6.6-8.7[facility] HospitalComment on above:Performed By: #### CMPX, CDP #### [facility] [address] [place] [address] Phosphorus Processing Supervisor: ADÁN Mckenzieodium [Moles/Vol]134 mmol/OIbi998-782RrpmpCincinnati Children'S Hospital Medical CenterComment on above:Performed By: #### CMPX, CDP #### [facility] [address] [place] [address] Phosph[employer] Processing Supervisor: Apolinar Lemus MDUrea nitrogen [Mass/Vol]17 mg/dLNormal8-23[facility] HospitalComment on above:Performed By: #### CMPX, CDP #### [address] [place] [address] Phosphorus Processing Supervisor: DA Mckenzie-Dimer Teston 81-67-6928G-Dimer Test3.58 ug/mL FEUHigh0.00-0.59[facility] Medical CenterComment on above:Result Comment: When combined with a [...] distal DVT.Performed By: #### CMPX, CDP #### [facility] [address] [place] [address] Phosphorus Processing Supervisor: Jaleel Mckenzie, Sepsison 27-81-2364Zwsnyo Acid, Sepsis0.9 mmol/LNormal0.5-1.9[facility] Medical CenterComment on above:Performed By: #### GLYHGB #### [facility] [address] [place], [place] 6259708 Phosphorus Processing Supervisor: JULISSA Cardozo-CoV-2on 79-39-3683XDEE-CoV-2 (COVID-19) RNA JANIA+probe Ql (Unsp spec)Not detectedNormalNOTDEUniversity Hospitals Conneaut Medical CenterComment on above:Result Comment: Rapid NAAT: [...] management decisions. Fact sheet for Healthcare Providers: https://www.fda.gov/media/545344/download Fact sheet for Patients: https://www.fda.gov/media/020569/download Methodology: Isothermal Nucleic Acid AmplificationPerformed By: #### GLYHGB #### [employer] [address] [place], [place] 7380808 Phosphorus Processing Supervisor: Rivera Cardozooponinon 67-19-2010Dlhievzr, High Sens35 ng/L High0-14[facility] Medical CenterComaspirus ontonagon hospital on above:Result Comment: High Sensitivity Troponin values cannot be compared with other Troponin methodologies.Performed By: #### DAREKO UAX #### [facility] [address] [place], [place] 8496383 Phosphorus Processing Supervisor: Katerina Mckenzie High Sens33 ng/LHigh0-14[facility] Medical CenterComment on above:Result Comment: High Sensitivity Troponin values cannot be compared with other Troponin methodologies.Performed By: #### GLYHGB #### [facility] [address], [place] 6097708 Phosphorus Processing Supervisor: LEEANN Cardozo w/Reflex Cultureon 30-42-4988Mejjmvzvl, SemiQt,UrNegativeNormalNEGCincinnati Children'S Hospital Medical CenterComment on above:Performed By: #### UMICAO, UAX #### [facility] [address] [place], [place] 9423783 Phosphorus Processing Supervisor: Lai Mckenzie, UrineNegativeAultman Alliance Community Hospital Comment on above:Performed By: #### UMICAO, UAX #### [facility] [address] [place], [place] 9992083 Phosphorus Processing Supervisor: Lakesha Mckenzierity (U)SLIGHTLY CLOUDYAbnormalCLEARMercMiddlesex HospitalComment on above:Performed By: #### UMICAO, UAX #### [facility] [address] [place] [address] Dr. [place], [place] 5883983 Phosphorus Processing Supervisor: ANNITA Mckenzieolor (U)YellowNormalYBluffton Hospital Comment on above:Performed By: #### UMICAO, UAX #### [facility] [address] [place], [place] 7663383 Phosphorus Processing Supervisor: Rayne Mckenzie Ql (U)NegativeNormalNEGCincinnati Children'S Hospital Medical CenterComment on above:Performed By: #### UMICAO, UAX #### [facility] [address] [place], [place] 8009083 Phosphorus Processing Supervisor: Apolinar Sturtz, MDKetones Ql (U)NegativeNormalNEGMagruder Hospital HospitalComment on above:Performed By: #### DAREKO, UAX #### [facility] [address] [place] [address] Dr. [place], [place] 3230283 Phosphorus Processing Supervisor: Apolinar Lemus MDLeukocyte esterase Test strip Ql (U)SMALLAbnormal NEGCincinnati Children'S Hospital Medical CenterComment on above:Performed By: #### GRACIE, UAX #### [facility] [address] [place] [address] Dr. [place], [place] 2452683 Phosphorus Processing Supervisor: Stephanie Mckenzietrite,UrNegativeNormalNEGHolzer Medical Center – Jackson on above:Performed By: #### GRACIE, UAX #### [address] [place], [place] 8735383 Phosphorus Processing Supervisor: ROJAS Mckenzie,Ur6.6Avsfon9.0-9.0[facility] Medical CenterComment on above:Performed By: #### GRACIE, UAX #### [address] [place], [place] 8918483 Phosphorus Processing Supervisor: Noelle Mckenzie Ql (U)2+ mg/dLAbnormalNEGCincinnati Children'S Hospital Medical CenterComment on above:Performed By: #### GRACIE, UAX #### [facility] [address] [place] [address] Dr. [place], [place] 2249583 Phosphorus Processing Supervisor: ADÁN Mckenziepec. [place],Ur1.472Quji6.010-1.020[facility] HospitalComment on above:Performed By: #### GRACIE, UAX #### [facility] [address] [place] [address] Dr. [place], [place] 4038183 Phosph[employer] Processing Supervisor: Tahmina Mckenziebilinogen,UrNormalNormal0.0-1.0[facility] HospitalComment on above:Performed By: #### DAREKO, UAX #### [facility] [address] [place], [place] 7676183 Phosphorus Processing Supervisor: Apolinar Lemus MDUrinalysis,Microon 95-78-2859Uguscbcr9+Abnormal NONEMercy Alger HospitalComment on above:Performed By: #### GRACIE, UAX #### [facility] [address] [place], [place] 8275183 Phosphorus Processing Supervisor: Apolinar Lemus MDEpithelial cells LM Ql (Urine sed)2 TO 5Exbekl6-72 [facility] HospitalComment on above:Performed By: #### GRACIE UAX #### [facility] [address] [place], [place] 2141483 Phosphorus Processing Supervisor: Apolinar Lemus MDEpithelial, Renal0 TO 5Koaycv6Hihmw Alger HospitalComment on above:Performed By: #### GRACIE UAX #### [facility] [address] [place], [place] 3827583 Phosphorus Processing Supervisor: Apolinar Lemus MDUrine RBC's0 TO 9Sgshue2-8Qhlyw [facility] Comment on above:Performed By: #### GRACIE UAX #### [facility] [address] [place], [place] 1941483 Phosph[employer] Processing Supervisor: Apolinar Lemus MDUrine WBC's5 TO 41Zywvcb3-2Vtqar [facility] Comment on above:Performed By: #### GRACIE UAX #### [facility] [address] [place] [address] Phosphorus Processing Supervisor: BRYCE Mckenzie CHEST PORTABLEon 26-36-2615GW CHEST PORTABLE EXAMINATION: ONE XRAY VIEW OF [...] Signed by: Diego Alcantara MD 01/02/24 Final resultNoProtestant HospitalXR TIBIA FIBULA LEFT (2 VIEWS)on 41-40-5458RB TIBIA FIBULA LEFT (2 VIEWS)EXAMINATION: 2 XRAY [...] Signed by: Zach Jacobs MD 01/02/24 Final resultNoProtestant HospitalBasic Metab w/rfx MGon 63-31-5554Xponk gap [Moles/Vol]15 mmol/LNormal9-17[facility] Medical CenterComment on above:Performed By: #### ELY BMPX #### [employer] [address] [place] [address] Phosphorus Processing Supervisor: ANNITA Cardozoalcium [Mass/Vol]9.1 mg/dLNormal8.6-10.4[facility] Medical CenterComment on above:Performed By: #### ELY BMPX #### [employer] [address] [place] [address] [id number] Phosphorus Processing Supervisor: Mark Liriano MDChloride [Moles/Vol]96 mmol/NOor18-120GdhczUniversity Hospitals Tripoint Medical CenterComment on above:Performed By: #### CDP, BMPX #### [facility] [address] [place] [address] Phosphorus Processing Supervisor: Mark Liriano MDCO2 [Moles/Vol]26 mmol/MWceemh07-65QvnpkUniversity Hospitals Tripoint Medical CenterComment on above:Performed By: #### CDP, BMPX #### [facility] [address] [place] [address] Phosphorus Processing Supervisor: ANNITA Cardozoreatinine [Mass/Vol]0.8 mg/dLNormal0.5-0.9[facility] Medical CenterComment on above:Performed By: #### ELY, BMPX #### [facility] [employer] [address] [place] [address] Phosphorus Processing Supervisor: Mark Liriano MDGFR/1.73 sq M.predicted among non-blacks MDRD (S/P/Bld) [Vol rate/Area]mL/min/{1.73_m2}Normal>60[facility] Medical CenterComment on above:Result Comment: These results are not [...] By: #### ELY, BMPX #### [facility] [address] [place] [address] Phosphorus Processing Supervisor: Mark Liriano MDGlucose [Mass/Vol]240 mg/yRXfqm69-29EhjgaAdventist Medical CenterComment on above:Performed By: #### CDP, BMPX #### [facility] [address] [place] [address] Phosphorus Processing Supervisor: ROJAS Cadrozootassium [Moles/Vol]4.3 mmol/LNormal3.7-5.3 [facility] Medical CenterComment on above:Performed By: #### CDP, BMPX #### [address] [address] Phosphorus Processing Supervisor: ADÁN Cardozoodium [Moles/Vol]137 mmol/KPyqcut693-484VnsumUniversity Hospitals Tripoint Medical CenterComment on above:Performed By: #### CDP, BMPX #### [address] [address] Phosphorus Processing Supervisor: Mark Liriano MDUrea nitrogen [Mass/Vol]22 mg/dLNormal8-23[facility] Medical CenterComment on above:Performed By: #### CDP, BMPX #### [address] [address] Phosphorus Processing Supervisor: Heath Cardozo 64-31-7980Kdbijlmylbn distribution width (RBC) [Ratio]18.6 %High11.8-14.4[facility] Medical CenterComment on above:Performed By: #### BMP, BNP, MG, CBC #### [address] [address] Phosphorus Processing Supervisor: BUZZ CardozoCH (RBC) [Entitic mass]28.3 gqXnghbx30.2-33.5 [facility] Medical CenterComment on above:Performed By: #### BMP, BNP, MG, CBC #### [facility] [employer] [address] [place] [address] Phosphorus Processing Supervisor: BUZZ CardozoCHC (RBC) [Mass/Vol]30.3 g/wDEaljfq43.4-34.8 [facility] Medical CenterComment on above:Performed By: #### BMP, BNP, MG, CBC #### [facility] [employer] [address] [place] [address] Phosphorus Processing Supervisor: BUZZ CardozoCV (RBC) [Entitic vol]93.5 sTAihatc00.6-102.9 [facility] CenterComment on above:Performed By: #### BMP, BNP, MG, CBC #### [facility] [employer] [address] [place] [address] Phosphorus Processing Supervisor: SVETLANA Cardozo Automated0.3 per 100 WBCHigh0.0[facility] Medical CenterComment on above:Performed By: #### BMP, BNP, MG, CBC #### [facility] [employer] [address] [place] [address] Phosphorus Processing Supervisor: Nicanor Cardozo mean volume (Bld) [Entitic vol]10.4 fL Normal8.1-13.5[facility] Medical CenterComment on above:Performed By: #### BMP, BNP, MG, CBC #### [address] [address] Phosphorus Processing Supervisor: Corey Cardozo (Bld) [#/Vol]214 10*3/oINiiyfo660-715 [facility] CenterComment on above:Performed By: #### BMP, BNP, MG, CBC #### [address] [address] Phosphorus Processing Supervisor: GEOVANY Cardozo (Bld) [#/Vol]4.45 10*6/uLNormal3.95-5.11 [facility] Medical CenterComment on above:Performed By: #### BMP, BNP, MG, CBC #### [facility] [employer] [address] [place] [address] Phosphorus Processing Supervisor: RAZA Cardozo (Bld) [#/Vol]6.0 10*3/uLNormal3.5-11.3MAdventist Medical CenterComment on above:Performed By: #### BMP, BNP, MG, CBC #### [facility] [employer] [address] [place] [address] Phosphorus Processing Supervisor: Mark Liriano MDHematocrit (Bld) [Volume fraction]41.0 %Normal 36.3-47.1MAdventist Medical CenterComment on above:Performed By: #### BMP, BNP, MG, CBC #### [address] [address] Phosphorus Processing Supervisor: Mark Liriano MDHemoglobin (Bld) [Mass/Vol]12.6 g/dLNormal 11.9-15.1MAdventist Medical CenterComment on above:Performed By: #### BMP, BNP, MG, CBC #### [address] [address] Phosphorus Processing Supervisor: FELISHA Cardozo with Diffon [id number]. Basophil<0.03 Normal0.00-0.20[facility] Medical CenterComment on above:Performed By: #### CDP, BMPX #### [address] [address] Phosphorus Processing Supervisor: Cruz Cardozo. Eosinophil<0.86Ghuokk9.00-0.44[facility] Medical CenterComment on above:Performed By: #### CDP, BMPX #### [address] [address] Phosphorus Processing Supervisor: Cruz Cardozo.Imm.Granulocyte0.04 k/uLNormal0.00-0.30[facility] Medical CenterComment on above:Performed By: #### CDP, BMPX #### [address] [address] Phosphorus Processing Supervisor: Cruz Cardozo.Neutrophil (Seg)5.37 k/uLNormal1.50-8.10 [facility] CenterComment on above:Performed By: #### CDP, BMPX #### [address] [id number] Phosphorus Processing Supervisor: Mark Liriano MDBasophils/100 WBC (Bld)0 %Normal0-2[facility] CenterComment on above:Performed By: #### CDP, BMPX #### [facility] [address] [place] [address] Phosphorus Processing Supervisor: Mark Liriano MDEosinophils/100 WBC (Bld)0 %Low1-4MerInter-Community Medical CenterComment on above:Performed By: #### CDP, BMPX #### [facility] [address] [place] [address] Phosphorus Processing Supervisor: Mark Liriano MDErythrocyte distribution width (RBC) [Ratio]18.5 %High11.8-14.4[facility] Medical CenterComment on above:Performed By: #### ELY, BMPX #### [address] [address] Phosphorus Processing Supervisor: Mark Liriano MDHematocrit (Bld) [Volume fraction]43.8 %Normal 36.3-47.1[facility] CenterComment on above:Performed By: #### ELY, BMPX #### [address] [address] Phosphorus Processing Supervisor: Mark Liriano MDHemoglobin (Bld) [Mass/Vol]13.5 g/dLNormal 11.9-15.1[facility] CenterComment on above:Performed By: #### CDP, BMPX #### [facility] [address] [place] [address] Phosphorus Processing Supervisor: Mark Liriano MDImmature granulocytes/100 WBC (Bld)1 %Oeli5XlrwfUniversity Hospitals Tripoint Medical CenterComment on above:Performed By: #### CDP, BMPX #### [facility] [address] [place] [address] Phosphorus Processing Supervisor: Mark Liriano MDLymphocytes (Bld) [#/Vol]0.75 10*3/uLLow 1.10-3.70[facility] CenterComment on above:Performed By: #### CDP, BMPX #### [address] [address] Phosphorus Processing Supervisor: Mark Liriano MDLymphocytes/100 WBC (Bld)11 %Dtq45-33TedaiUniversity Hospitals Tripoint Medical CenterComment on above:Performed By: #### CDP, BMPX #### [address] [address] Phosphorus Processing Supervisor: BUZZ CardozoCH (RBC) [Entitic mass]28.1 ssRxaefa99.2-33.5 [facility] CenterComment on above:Performed By: #### ELY, BMPX #### [address] [address] Phosphorus Processing Supervisor: BUZZ CardozoCHC (RBC) [Mass/Vol]30.8 g/hGMeactq58.4-34.8 [facility] CenterComment on above:Performed By: #### ELY, BMPX #### [address] [address] Phosphorus Processing Supervisor: BUZZ CardozoCV (RBC) [Entitic vol]91.1 rJKlgoms25.6-102.9 [facility] CenterComment on above:Performed By: #### ELY, BMPX #### [address] [address] Phosphorus Processing Supervisor: BUZZ Cardozoonocytes (Bld) [#/Vol]0.58 10*3/uLNormal 0.10-1.20[facility] Medical CenterComment on above:Performed By: #### ELY, BMPX #### [address] [address] Phosphorus Processing Supervisor: Mark Madoff, MDMonocytes/100 WBC (Bld)9 %Normal3-12[facility] CenterComment on above:Performed By: #### CDP, BMPX #### [address] [address] Phosphorus Processing Supervisor: Mark Liriano MDNeutrophil (Seg)79 %Gkio73-47ElnqdUniversity Hospitals Tripoint Medical CenterComment on above:Performed By: #### CDP, BMPX #### [address] [address] Phosphorus Processing Supervisor: Mark Liriano MDNRBC Automated0.0 per 100 WBCNormal0.0[facility] Medical CenterComment on above:Performed By: #### CDP, BMPX #### [address] [address] Phosphorus Processing Supervisor: Rajat Cardozotezee mean volume (Bld) [Entitic vol]10.2 fL Normal8.1-13.5[facility] CenterComment on above:Performed By: #### ELY, BMPX #### [address] [address] Phosphorus Processing Supervisor: ROJAS Cardozolatelets (Bld) [#/Vol]175 10*3/rXWzshmy862-731 [facility] CenterComment on above:Performed By: #### CDP, BMPX #### [address] [address] Phosphorus Processing Supervisor: Mark Liriano MDRBC (Bld) [#/Vol]4.81 10*6/uLNormal3.95-5.11 [facility] CenterComment on above:Performed By: #### CDP, BMPX #### [address] [address] Phosphorus Processing Supervisor: GEOVANY Cardozo morphology finding Nom (Bld)ANISOCYTOSIS PRESENTNormalMerInter-Community Medical CenterComment on above:Performed By: #### CDP, BMPX #### [address] [address] Phosphorus Processing Supervisor: RAZA Cardozo ([facility]) [#/Vol]6.7 10*3/uLNormal3.5-11.3MAdventist Medical CenterComment on above:Performed By: #### CDP, BMPX #### [address] [address] Phosphorus Processing Supervisor: Mark Liriano MDHgb/Hcton 66-28-7573IexxnppbmfDFIVCVXYZ RESULTS. CLERICAL ERROR.Aktmnd82.3-47.1MAdventist Medical CenterComment on above: Result Comment: CORRECTED ON 12/14 AT 0522: PREVIOUSLY REPORTED 41.0Performed By: #### HH #### [address] [address] Phosphorus Processing Supervisor: Mark Liriano MDHemoglobinDISREGARD RESULTS. CLERICAL ERROR. Ixhogd97.9-15.1MAdventist Medical CenterComment on above:Result Comment: CORRECTED ON 12/14 AT 0522: PREVIOUSLY REPORTED 12.6Performed By: #### HH #### [address] [address] Phosphorus Processing Supervisor: Mihaela Cardozo Metabolic Profon 24-09-5010Valgi gap [Moles/Vol]14 mmol/LNormal9-17[facility] Medical CenterComment on above: Performed By: #### BMP, BNP, MG, CBC #### [facility] [employer] [address] [place] [address] Phosphorus Processing Supervisor: ANNITA Cardozoalcium [Mass/Vol]8.7 mg/dLNormal8.6-10.4[facility] Medical CenterComment on above:Performed By: #### BMP, BNP, MG, CBC #### [facility] [employer] [address] [place] [address] Phosphorus Processing Supervisor: ANNITA Cardozohloride [Moles/Vol]95 mmol/GDcd22-345EyyraUniversity Hospitals Tripoint Medical CenterComment on above:Performed By: #### BMP, BNP, MG, CBC #### [facility] [address] [place] [address] Phosphorus Processing Supervisor: Mark Liriano MDCO2 [Moles/Vol]24 mmol/BGoxshd02-77XpbbwUniversity Hospitals Tripoint Medical CenterComment on above:Performed By: #### BMP, BNP, MG, CBC #### [facility] [address] [place] [address] Phosphorus Processing Supervisor: ANNITA Cardozoreatinine [Mass/Vol]0.7 mg/dLNormal0.5-0.9[facility] CenterComment on above:Performed By: #### BMP, BNP, MG, CBC #### [facility] [address] [place] [address] Phosphorus Processing Supervisor: Mark Liriano MDGFR/1.73 sq M.predicted among non-blacks MDRD (S/P/Bld) [Vol rate/Area]mL/min/{1.73_m2}Normal>60[facility] CenterComment on above:Result Comment: These results are not [...] BMP, BNP, MG, CBC #### [facility] [address] [place] [address] Phosphorus Processing Supervisor: Mark Liriano MDGlucose [Mass/Vol]273 mg/rCYbvq00-43MaevaHealdsburg District HospitalComment on above:Performed By: #### BMP, BNP, MG, CBC #### [facility] [place] [address] Phosphorus Processing Supervisor: ROJAS Cardozootassium [Moles/Vol]4.1 mmol/LNormal3.7-5.3 [facility] CenterComment on above:Performed By: #### BMP, BNP, MG, CBC #### [facility] [address] [place] [address] Phosphorus Processing Supervisor: Mark Liriano MDSodium [Moles/Vol]133 mmol/VTsb483-782HspnxUniversity Hospitals Tripoint Medical CenterComment on above:Performed By: #### BMP, BNP, MG, CBC #### [facility] [address] [place] [address] Phosphorus Processing Supervisor: Mark Liriano MDUrea nitrogen [Mass/Vol]20 mg/dLNormal8-23[facility] CenterComment on above:Performed By: #### BMP, BNP, MG, CBC #### [facility] [address] [place] [address] Phosphorus Processing Supervisor: Mark Liriano MDBrain Natri. Peptideon 09-59-9256Ubkkghwkipr peptide B (Bld) [Mass/Vol]4124 pg/mLHigh<300[facility] Comment on above:Result Comment: An age-independent cutoff point of 300 pg/ml has a 98% negative predictive value excluding acute heart failure.Performed By: #### BMP, BNP, MG, CBC #### [facility] [address] [place] [address] Phosphorus Processing Supervisor: Mark Liriano MDHgb/Hcton 70-56-2063Dakomxecpn (Bld) [Volume fraction]43.8 %Vsmfay13.3-47.1MAdventist Medical CenterComment on above: Performed By: #### HH #### [facility] [address] [place] [address] Phosphorus Processing Supervisor: Mark Liriano MDHemoglobin (Bld) [Mass/Vol]13.4 g/dLNormal 11.9-15.1[facility] CenterComment on above:Performed By: #### HH #### [employer] [address] [place], [place] [id number] Phosphorus Processing Supervisor: Mark Liriano MDMagnesiumon 45-74-0065Aoflgulnd [Mass/Vol]2.2 mg/dLNormal1.6-2.6[facility] Medical CenterComment on above:Performed By: #### BMP, BNP, MG, CBC #### [employer] [address] [place], [place] [address] Phosphorus Processing Supervisor: Mark Liriano [facility] PRYORBC with Auto Differentialon [id number] (Bld) [#/Vol][facility] SYSTEMBasophils/100 WBC (Bld)0 %0 - 2 %[facility] SYSTEMEosinophils (Bld) [#/Vol][facility] Eosinophils/100 WBC (Bld)0 %Low1 - 4 %[facility] SYSTEMErythrocyte distribution width (RBC) [Ratio]18.6 %High11.8 - 14.4 %[facility] Hematocrit (Bld) [Volume fraction]36.2 %Low36.3 - 47.1 %[facility] Hemoglobin (Bld) [Mass/Vol]11.6 g/dLLow11.9 - 15.1 g/dLBON [facility] Immature granulocytes (Bld) [#/Vol]0.06 10*3/uLBON SECOHIOHEALTH [facility]ICKER[facility] HOSPITALImmature granulocytes/100 WBC (Bld)1 %Jkpx3UOL [facility] CENTERInterpretation and review of laboratory resultsAbnormalBON SECOHIOHEALTH [facility]ER[facility]IST HOSPITALLymphocytes/100 WBC (Bld)9 %Low24 - 43 %[facility] HOSPITALLymphocytes/100 WBC (Bld)0.75 %Low [facility]OSPITALH (RBC) [Entitic mass]28.2 pg25.2 - 33.5 pgBON SECOURS MERCY HEALTHMCHC (RBC) [Mass/Vol]32.0 g/dL28.4 - 34.8 g/dLBON [facility] MED[facility] CENTERMCV (RBC) [Entitic vol]88.1 fL82.6 - 102.9 fLWELLMONT HEALTH SYSTEM Monocytes/100 WBC (Bld)3 %3 - 12 %BON [facility] CENTERMonocytes/100 WBC (Bld)0.23 %[facility] SYSTEMNeutrophils/100 WBC (Bld)87 %High36 - 65 %BON [facility] CENTERNRBC Automated0.00.0 per 100 WBCWELLMONT HEALTH SYSTEM Platelet mean volume (Bld) [Entitic vol]9.4 fL8.1 - 13.5 fLWELLMONT HEALTH SYSTEMPlatelets (Bld) [#/Vol]216 10*3/uLBON [facility]ITY OF TOLED[facility] MEDICAL CENTERRBC (Bld) [#/Vol]4.11 10*6/uL3.95 - 5.11 m/uLWELLMONT HEALTH SYSTEMSegmented neutrophils/100 WBC (Bld)7.04 %BON [facility] MED[facility] CENTERWBC other (Bld) [#/Vol] 8.1BON [facility] HOSPITALComprehensive Metabolic Panel on 55-00-5736Zqtevkj [Mass/Vol]4.1 g/dL3.5 - 5.2 g/dLBON [facility] Albumin/Globulin [Mass ratio]1.3 {ratio}1.0 - 2.5BON [facility] HEALTHALP [Catalytic activity/Vol]121 U/LHigh35 - 104 U/LBON [facility] HEALTHALT [Catalytic activity/Vol]29 U/L5 - 33 U/LBON [facility] CENTERAnion gap [Moles/Vol]8 mmol/LLow9 - 17 mmol/LBON [facility] HEALTHAST [Catalytic activity/Vol]16 U/LNINF - 32 U/LBON [facility] HEALTHBilirubin [Mass/Vol]0.3 mg/dL0.3 - 1.2 mg/dLBON [facility] HEALTHCalcium [Mass/Vol]9.1 mg/dL8.6 - 10.4 mg/dLBON [facility] HEALTHChloride [Moles/Vol]103 mmol/L98 - 107 mmol/L [facility] HEALTHCO2 [Moles/Vol]27 mmol/L20 - 31 mmol/LBON [facility] PE[facility]LES HOSPITALY [facility]ENTERCreatinine [Mass/Vol]0.73 mg/dL0.50 - 0.90 mg/dLBON [facility] CAREEvogen [facility] GFR/1.73 sq M.predicted MDRD (S/P/Bld) [Vol rate/Area]- PINFBON THE UN[facility]ERSITY [facility] TOLEDO MEDICAL CENTERComment on above: These results are not intended [...] that affects renal tubular secretion. Glucose [Mass/Vol]171 mg/ePUsqd57 - 99 mg/dLBON [facility] REHABILITATION [email or web address] Interpretation and review of laboratory resultsAbnormalBON SECOU[facility] HOSPITALY HEALTH Potassium [Moles/Vol]4.9 mmol/L3.7 - 5.3 mmol/LBON [facility]OSPITALY HEALTHProtein [Mass/Vol]7.2 g/dL6.4 - 8.3 g/dLBON [facility] GALION HOSPITALSodium [Moles/Vol]138 mmol/L135 - 144 mmol/LBON [facility] AccelGolfUrea nitrogen [Mass/Vol]33 mg/dL High8 - 23 mg/dLBON [facility] AccelGolfUrea nitrogen/Creatinine (Bld) [Mass ratio]68Nlgo0 - 20B[facility] HEALTHBON [facility] PEOPLES HOSPITALY [facility] MEDICAL CENTERCBC with Auto Differentialon [id number] Eos #0.18[facility] HEALTHAbsolute Immature GranulocyteBON [facility] MERCY HEALTHAbsolute Lymph #1.21[facility] HEALTHAbsolute [place] #0.40[facility] HEALTHBasophils (Bld) [#/Vol] 0.09 10*3/uLBON [facility] MERCY HEALTHBasophils/100 WBC (Bld)1 %0 - 2 %[facility] DotY [facility] CENTEREosinophils/100 WBC (Bld)2 %1 - 4 %[facility] Hematocrit (Bld) [Volume fraction]44.5 %36.3 - 47.1 %[facility] Hemoglobin (Bld) [Mass/Vol]14.5 g/dL11.9 - 15.1 g/dLBON [facility] Immature granulocytes/100 WBC (Bld)0 %0[facility] SYSTEMInterpretation and review of laboratory resultsAbnormalBON [facility] MED[facility] CENTERLymphocytes/100 WBC (Bld)15 %Low24 - 43 %[facility] CENTERH (RBC) [Entitic mass]28.3 pg 25.2 - 33.5 pgBON MAGRUDER HOSPITALHC (RBC) [Mass/Vol]32.6 g/dL28.4 - 34.8 g/dLBON MAGRUDER HOSPITALV (RBC) [Entitic vol]86.9 fL82.6 - 102.9 fLWELLMONT HEALTH SYSTEMMonocytes/100 WBC (Bld)5 %3 - 12 %[facility] NRBC Automated0.00.0 per 100 WBCBON [facility] CENTERPlatelet distribution width (Bld) [Ratio]17.2 %High11.8 - 14.4 %[facility] SYSTEMPlatelet mean volume (Bld) [Entitic vol]9.1 fL8.1 - 13.5 fLWELLMONT HEALTH SYSTEMPlatelets (Bld) [#/Vol]241 10*3/uLBON [facility]ITY OF TOL[facility] MEDICAL CENTERRBC (Bld) [#/Vol]5.12 10*6/uL High3.95 - 5.11 m/uLWELLMONT HEALTH SYSTEMSegmented neutrophils/100 WBC (Bld) 77 %High36 - 65 %[facility] SYSTEMSegs Absolute6.18BON [facility] CENTERWBC (Bld) [#/Vol]8.1 10*3/uLBON [facility] CITY HOSPITALComprehensive Metabolic Panelon [id number] [Mass/Vol]4.5 g/dL3.5 - 5.2 g/dLBON [facility] CENTERAlbumin/Globulin [Mass ratio]1.5 {ratio}1.0 - 2.5BON [facility] K94 Discoveries [facility] MED[facility] CENTERALP [Catalytic activity/Vol]95 U/L35 - 104 U/LBON [facility] CAREEvogen [facility] CENTERALT [Catalytic activity/Vol]10 U/L5 - 33 U/LBON [facility] REH[facility]IL[facility]ATION [email or web address] gap [Moles/Vol]12 mmol/L9 - 17 mmol/LBON [facility] AccelGolf AST [Catalytic activity/Vol]13 U/LNINF - 32 U/LBON [facility] AccelGolfBilirubin [Mass/Vol]0.2 mg/dLLow0.3 - 1.2 mg/dLBON [facility] CENTERCalcium [Mass/Vol] 10.1 mg/dL8.6 - 10.4 mg/dLBON [facility]HABIL[facility]ATION [email or web address] [Moles/Vol]101 mmol/L 98 - 107 mmol/LBON [facility] AccelGolfCO2 [Moles/Vol]27 mmol/L20 - 31 mmol/LBON [facility] AccelGolfCreatinine [Mass/Vol]0.96 mg/dLHigh0.50 - 0.90 mg/dLBON [facility] REHABILITATION [email or web address]/1.73 sq M.predicted MDRD (S/P/Bld) [Vol rate/Area]- AMANDA GOLDEN [facility] AccelGolfComment on above: These results are not intended [...] that affects renal tubular secretion. Glucose [Mass/Vol]137 mg/fCApan73 - 99 mg/dLBON [facility] REHABILITATION [email or web address] Interpretation and review of laboratory resultsAbnormalBON [facility] AccelGolf Potassium [Moles/Vol]4.3 mmol/L3.7 - 5.3 mmol/LBON [facility]IL[facility]ATION [email or web address] [Mass/Vol]7.6 g/dL6.4 - 8.3 g/dLBON [facility] VAL[facility] REHABILITATION HOSPITALEvogen [facility] CENTERSodium [Moles/Vol]140 mmol/L135 - 144 mmol/LBON [facility]HABILITATION [email or web address] nitrogen [Mass/Vol]22 mg/dL8 - 23 mg/dLBON [facility] CENTERUrea nitrogen/Creatinine (Bld) [Mass ratio]23 High9 - 20BON [facility] RAPID CITY HOSPITALLipid Panelon [id number] [Mass/Vol]231 mg/dLHighNINF - 200 mg/dLBON [facility] CENTERComment on above: Cholesterol Guidelines: <200 Desirable 200-240 Borderline >240 Undesirable Cholesterol in HDL [Mass/Vol]46 mg/dL40 - PINF mg/dLBON [facility] Comment on above: HDL Guidelines: <40 Undesirable 40-59 Borderline >59 Desirable Cholesterol in LDL [Mass/Vol]139 mg/dLHigh0 - 130 mg/dLBON [facility] AccelGolf Comment on above: LDL Guidelines: <100 Desirable 100-129 Near to/above Desirable 130-159 Borderline >159 Undesirable Direct (measured) LDL and calculated LDL are not interchangeable tests. Cholesterol.total/Cholesterol in HDL [Mass ratio]5 {ratio}HighNINF - 5BON [facility] CENTERInterpretation and review of laboratory resultsAbnormLifePoint HospitalsTriglyceride [Mass/Vol]232 mg/dLHighNINF - 150 mg/dLBON [facility] CENTERComment on above: Triglyceride Guidelines: <150 Desirable 150-199 Borderline 200-499 High >499 Very high Based on AHA Guidelines for fasting triglyceride, December 2011. [facility] SYSTEMMicroalbumin, Uron [id number]/Creatinine DL <= 20 mg/L (24H U) [Mass ratio]749 mg/LHighNINF - 21 mg/LBON [facility] Albumin/Creatinine DL <= 20 mg/L (U) [Ratio]775HighNINFWELLMONT HEALTH SYSTEM Creatinine [Mass/Vol]96.7 mg/dL28.0 - 217.0 mg/dLBON [facility] Interpretation and review of laboratory resultsAbnormCentra Lynchburg General HospitalTSH With Reflex Ft4on [id number] Qn2.20 m[IU]/LBON [facility] HOSPITALUrine Drug Screenon 07-26-2022 Amphetamine Screen, UrPositiveAbnormalNEGATIVEBON [...] 5 ng/ml) Interpretation and review of laboratory resultsAbnormalWELLMONT HEALTH SYSTEM Methadone Screen, UrineNegativeNEGATIVEBON [facility] CAREY HEALTHComment on above: (Positive cutoff 300 ng/mL) Opiates, UrineNegativeNEGATIVEBON [facility]OU[facility]OP[facility]OSPITALY HEALTHComment on above: (Positive cutoff 300 ng/mL) Oxycodone Screen, UrPositiveAbnormalNEGATIVEBON SECOU[facility] PEOPLES HOSPITALY HEALTHComment on above: (Positive cutoff 100 ng/mL) Phencyclidine, UrineNegativeNEGATIVEBON [facility] CAREY HEALTHComment on above: (Positive cutoff 25 ng/mL) Test InformationAssay provides medical screening only. The absence of expected drug(s) and/or metabolite(s) may indicate diluted or adulterated urine, limitations of testing or timing of collection.[facility] on above:Testing for legal purposes should be confirmed by another method. To request confirmation of test result, please call the lab within 7 days of sample submission. [facility] SYSTEMVitamin D 25 Hydroxyon [id number] D3 [Mass/Vol]14.9 ng/mLLow29.9 - PINF ng/mLSentara CarePlex Hospital on above: Reference Range: Vitamin D status Range Deficiency <20 ng/mL Mild Deficiency 20-30 ng/mL Sufficiency 30-100 ng/mL Toxicity >100 ng/mL Interpretation and review of laboratory resultsAbnormalCHILDREN'S HOSPITAL OF THE KING'S DAUGHTERSNo Panel Informationon . No acute osseous abnormality identified in the lumbar spine or sacrum. 2. Advanced arthropathy in the lumbar spine and right hip, as described. [facility] CONSOLIDATEDEXAMINATION: 3 XRAY VIEWS OF THE [...] the groin bilaterally. Moderate rectal stool burden. [facility] Diego Islas MD - 07/21/2022 EXAMINATION: [...] lumbar spine and right hip, as described. [employer] Phone: No Panel InformationOrdered By: Diego Alcantara on [id number] [employer] Phone: xr LUMBAR SPINE (2-3 VIEWS)on [id number] Study observation (narrative)[employer] Phone: xr SACRUM COCCYX (MIN 2 VIEWS)on [id number] Study observation (narrative)[employer] Phone: ct ABDOMEN PELVIS W IV CONTRAST [...] excluded. Clinical correlation is recommended. 4. Hepatomegaly. [employer] Phone: cT ABDOMEN PELVIS W IV CONTRAST Additional Contrast? OralOrdered By: Diomedes Corona on [id number] [employer] Phone: ct ABDOMEN PELVIS W IV CONTRAST Additional Contrast? Oralon [id number] Study observation (narrative)[employer] Phone: creatinineon 33-46-1837Pnokstlbaz [Mass/Vol]0.84 mg/dL 0.5 - 0.9 mg/dLBON NearDeskGFR/1.73 sq M.predicted MDRD (S/P/Bld) [Vol rate/Area]- PINFBON NearDeskComment on above: Effective Jan 01, 2022 These [...] following therapy that affects renal tubular secretion. Vibr[employer] TechnologiesI HIP RIGHT WO CONTRASTon . Moderate to severe right hip osteoarthrosis. Moderate right hip joint effusion. Severe right hip chondromalacia. 2. Mild left hip osteoarthrosis. 3. Tearing of the right acetabular labrum. 4. No signal changes to suggest femoral head AVN. 5. Moderate distention of urinary bladder. 6. Bowel loop containing ventral hernia. [facility] CONSOLIDATEDEXAMINATION: MRI OF THE RIGHT HIP [...] 4.6 cm on image 8, series 1. [facility] Orlando Brumfield MD - 01/04/2022 EXAMINATION: [...] bladder. 6. Bowel loop containing ventral hernia. [facility] [employer] Phone: radiology Study observation (narrative)[facility] [employer] Phone: MRI HIP RIGHT WO CONTRASTOrdered By: Orlando Callejas on [id number] [employer] Phone: XR Spine Lumbosacral 2 or 3 Viewson [id number] Spine Lumbosacral 2 or 3 ViewsFINDINGS: Mid [...] signed by Dwight Goel on 10/06/2021 1313NormalNorthern New Jersey Medical SpecialistAMYLASEon [id number] [Catalytic activity/Vol]510 U/LCritically enkt12-723Vxi [facility] HospitalComment on above:Performed By: #### LIPAriana SUSIE ####[facility] [address] [address]Dr. Praveen Medrano W MANUAL DIFFon [id number] LYMPH #NormalThe [facility] HospitalComment on above:Performed By: #### ABIGAIL #### [facility] Laboratory [address] [place] [address] Dr. Praveen BloomICAL LYMPH %NormalThe [facility] HospitalComment on above: Performed By: #### ABIGAIL #### [facility] [address] [place] [address] Dr. Praveen Gu #0.3 103/ulNormal0.0-0.3The [facility] HospitalComment on above:Performed By: #### ABIGAIL #### [facility] [address] [place] [address] Dr. Praveen Gu %2 %Normal0-5The [facility] HospitalComment on above:Performed By: #### ABIGAIL #### [facility] [address] [place] [address] Dr. Praveen Linares #0.00 103/ulNormal0.00-0.10The [facility] HospitalComment on above:Performed By: #### ABIGAIL #### [facility] [address] [place] [address] Dr. Praveen Linares %0.0 %Critically low0.2-2.0The [facility] HospitalComment on above:Performed By: #### ABIGAIL #### [facility] [address] [place] [address] Dr. Praveen Perry #NormalThe [facility] on above:Performed By: #### CBCSHELBY #### [facility] [address] [place] [address] Dr. Praveen ColladoBLAST %NormalThe [facility] on above:Performed By: #### CBCSHELBY #### [facility] [address] [place] [address] Dr. Praveen ColladoCORRECTED WBCNormal4.0-11.0[facility] on above: Performed By: #### CBCSHELBY #### [facility] [address] [place] [address] Dr. Praveen Madsen #0.28 103/ulNormal0.00-0.70[facility] on above:Performed By: #### ABIGAIL #### [facility] [address] [place] [address] Dr. Praveen Madsen%2.0 %Normal0.9-7.0[facility] on above: Performed By: #### ABIGAIL #### [facility] [address] [place] [address] Dr. Praveen ColladoHCT46.9 %Khmpdq25.0-48.0[facility] on above: Performed By: #### ABIGAIL #### [facility] [address] [place] [address] Dr. Praveen ColladoHGB15.2 g/ybRucriz35.0-16.0[facility] on above: Performed By: #### CBCSHELBY #### [facility] [address] [place] [address] Dr. Praveen Pedraza #2.90 103/ulNormal1.20-3.80[facility] on above:Performed By: #### CBCSHELBY #### [facility] [address] [place] [address] Dr. Praveen Pedraza%21.0 %Wmmeou04.5-60.0[facility] on above:Performed By: #### CBCSHELBY #### [facility] [address] [place] [address] Dr. Praveen TangH29.0 laFnsbfm66.7-34.0The [facility] HospitalComment on above: Performed By: #### ABIGAIL #### [facility] [address] [place] [address] Dr. Praveen TangHC32.4 g/ikQqcpxn82.9-35.2The [facility]rington HospitalComment on above:Performed By: #### ABIGAIL #### [facility] [address] [place] [address] Dr. Praveen TangV89.5 yHEmxswn17.0-99.0The [facility] HospitalComment on above: Performed By: #### ABIGAIL #### [facility] [address] [place] [address] Dr. Praveen BahenaOCYTE #NormalThe [facility]rington HospitalComment on above: Performed By: #### ABIGAIL #### [facility] [address] [place] [address] Dr. Praveen BahenaOCYTE %NormalThe [facility] HospitalComment on above: Performed By: #### ABIGAIL #### [facility] [address] [place] [address] Dr. Praveen Singleton#0.69 103/ulNormal0.30-0.80The [facility] HospitalComment on above:Performed By: #### ABIGAIL #### [facility] [address] [place] [address] Dr. Praveen Singleton%5.0 %Normal1.7-12.0The [facility] HospitalComment on above: Performed By: #### ABIGAIL #### [facility] [address] [place] [address] Dr. Praveen MelchorV9.9 fLNormal9.5-13.5The [facility] HospitalComment on above: Performed By: #### ABIGAIL #### [facility] [address] [place] [address] Dr. Praveen SerranoOCYTE #NormalThe [facility] HospitalComment on above:Performed By: #### ABIGAIL #### [facility] [address] [place] [address] Dr. Praveen HernandezELOCYTE %NormalThe [facility] HospitalComment on above:Performed By: #### ABIGAIL #### [facility] [address] [place] [address] Dr. Praveen SloanBCNormalThe [facility] HospitalComment on above:Performed By: #### ABIGAIL #### [facility] [address] [place] [address] Dr. Praveen BenitesT251 103/ypLsrhil446-847Qdj [facility] HospitalComment on above: Performed By: #### ABIGAIL #### [facility] [address] [place] [address] Dr. Praveen ColladoRBC5.24 106/ulNormal4.20-5.40The [facility] HospitalComment on above:Performed By: #### ABIGAIL #### [facility] [address] [place] [address] Dr. Praveen VargasW15.1 %Critically high11.0-15.0The [facility] HospitalComment on above:Performed By: #### ABIGAIL #### [facility] [address] [place] [address] Dr. Praveen Maharaj #9.66 103/ulCritically high1.40-6.50The [facility] Comment on above:Performed By: #### ABIGAIL #### [facility] [address] [place] [address] Dr. Praveen Maharaj %70.0 %Ijmtjt16.0-75.0The [facility] HospitalComment on above: Performed By: #### ABIGAIL #### [facility] [address] [place] [address] Dr. Praveen StylesBC13.8 103/ulCritically high4.0-11.0The [facility] HospitalComment on above:Performed By: #### ABIGAIL #### [facility] [address] [place] [address] Dr. Praveen ColladoCT ABD/PELVIS WO CONon [id number] ABD/PELVIS WO CONEXAM: CT ABD/PELVIS WO CON [...] Electronically authenticated by: TAWANNA VICENTE Date: 2021-08-25 05:11[facility]on [id number] [facility] H[facility]: DISORIENTATION, UNSPECIFIED COMPARISON: [...] Electronically authenticated by: Elizabeth FAJARDO Date: 2021-08-25 04:07[facility] WO CONon [id number] [facility] WO CON Begin Addendum #1 Important critical [...] the report after I reach the clinician.NormalThe [facility] CT STROKE HEAD WOon [id number] STROKE HEAD WOINDICATION: 60 years old; Female. [...] Electronically authenticated by: NIA GALLEGOS Date: 2021-08-25 02:12NoMorrow County HospitalCovid-19 PCR (CVDTBH)on 81-83-2879THPC-CoV-2 (COVID-19) RNA JANIA+probe Ql (Unsp spec)Not detectedNormalNOT DETECTEDThe [facility] Comment on above:Result Comment: When diagnostic [...] for this test is supported by the Reading of Health and Human Service's declaration that [...] longer be used).Performed By: #### CVDTBH #### [facility] [address] [place], [place] [address] Dr. Praveen Patel [id number] [Catalytic activity/Vol]7064.0 U/L Critically high73.0-393.0The [facility] HospitalComment on above:Performed By: #### SUSIE GOEL ####[facility] [address] [place], [place] [address]FeDr. Praveen ColladoPROF 14(COMP METB)on 62-16-8904Slyypjm [Mass/Vol]3.6 g/dLNormal3.4-5.0The [facility] HospitalComment on above:Performed By: #### CMP #### [facility] [address] [address] [address] Praveen ColladoAlbumin/Globulin [Mass ratio]1.1 {ratio}NormalThe [facility] HospitalComment on above:Performed By: #### CMP #### [facility] [address] [address] [address] Praveen WelchP [Catalytic activity/Vol]102 U/MKmxeuz76-510Wlh [facility] HospitalComment on above:Performed By: #### CMP #### [facility] [address] [place] [address] Dr. Praveen WelchT [Catalytic activity/Vol]13 U/LCritically fcf00-72Yeu [facility] HospitalComment on above:Performed By: #### CMP #### [facility] [address] [place] [address] Dr. Praveen Dumonton gap [Moles/Vol]18.9 mmol/LNormalThe [facility] Comment on above:Performed By: #### CMP #### [facility] [address] [place] [address] Dr. Pravene ColladoAST [Catalytic activity/Vol]16 U/QXyvfis45-39Jbg [facility] HospitalComment on above:Performed By: #### CMP #### [facility] [address] [place] [address] Dr. Praveen ColladoBilirubin [Mass/Vol]1.2 mg/dLCritically high0.2-1.0The [facility] HospitalComment on above:Performed By: #### CMP #### [facility] [address] [place] [address] Dr. Praveen ColladoCalcium [Mass/Vol]9.0 mg/dLNormal8.5-10.1The [facility] Comment on above:Performed By: #### CMP #### [facility] [address] [place] [address] Dr. Praveen ColladoChloride [Moles/Vol]98 mmol/BAhylbx45-667Pva [facility] Comment on above:Performed By: #### CMP #### [facility] [address] [place] [address] Dr. Praveen ColladoCO2 [Moles/Vol]22.6 mmol/UPpzgpu90.0-32.0The [facility] Comment on above:Performed By: #### CMP #### [facility] [address] [address] [address] Praveen ColladoCreatinine [Mass/Vol]1.18 mg/dLCritically high0.55-1.02The [facility] HospitalComment on above:Performed By: #### CMP #### [facility] [address] [address] [address] Praveen WestGFR-AF GSYFQHIR21 mL/min/1.02k4Qeaatquwwq low>=60The [facility] HospitalComment on above:Performed By: #### CMP #### [facility] [address] [place] [address] Dr. Praveen WestGFR-NON AF EWRRUOQO27 mL/min/1.45r6Qgbcfwgwzq low>=60The [facility] HospitalComment on above:Performed By: #### CMP #### [facility] [address] [address] [address] Praveen ColladoGlobulin (S) [Mass/Vol]3.3 g/dLNormalThe [facility] HospitalComment on above:Performed By: #### CMP #### [facility] [address] [place] [address] Dr. Praveen ColladoGlucose [Mass/Vol]98 mg/gRKntiog36-634Nbn [facility] Comment on above:Performed By: #### CMP #### [facility] [address] [address] [address] Praveen ColladoPotassium [Moles/Vol]2.5 mmol/LCritically low3.5-5.1The [facility] HospitalComment on above:Performed By: #### CMP #### [facility] [address] [address] [address] Praveen ColladoProtein [Mass/Vol]6.9 g/dLNormal6.4-8.2The [facility] Comment on above:Performed By: #### CMP #### [facility] [address] [address] [address] Praveen Maganaum [Moles/Vol]136 mmol/CGlmdnh479-255Lon [facility] Comment on above:Performed By: #### CMP #### [facility] [address] [address] [address] Praveen Yancey nitrogen [Mass/Vol]29.0 mg/dLCritically high7.0-18.0The [facility] HospitalComment on above:Performed By: #### CMP #### [facility] [address] [place] [address] Dr. Praveen Yancey nitrogen/Creatinine [Mass ratio]24.6 mg/mgNoMorrow County HospitalComment on above:Performed By: #### CMP #### [facility] [address] [place] [address] Dr. Praveen Martinez [id number] Coag (PPP) [Relative time]1.15 {INR} NormalThe [facility] HospitalComment on above:Performed By: #### PTT, PT #### [facility] [address] [place] [address] Dr. Praveen Luna GUIDELINESSEE BELOWCorey HospitalComment on above:Result Comment: DESIRED INR: 2.0 - 3.0 CONDITIONS NOT LISTED BELOW 2.5 - 3.5 FOR PROSTHETIC HEART VALVE REPLACEMENT 2.5 - 3.5 RECURRENT THROMBOSIS Performed By: #### PTT, PT #### [facility] [address] [place] [address] Dr. Praveen Rogers Coag (PPP) [Time]12.3 sCritically high9.0-11.6The [facility] HospitalComment on above:Performed By: #### PTT, PT #### [facility] [address] [place] [address] Dr. Praveen Oropeza 24-76-8688mKCB Coag (Bld) [Time]30.9 wGelhff96.3-36.2The [facility] HospitalComment on above:Performed By: #### PTT, PT ####[facility] [address] [address]Dr. Praveen ColladoXR CHEST 1 Von [id number] CHEST 1 VEXAM: XR CHEST 1 V [...] Electronically authenticated by: Elizabeth FAJARDO Date: 2021-08-25 02:[address] [place], [place] [address]GLUCOSE POCon [id number] [Mass/Vol]76 mg/dL70 - 99 mg/dL OSFort Hamilton HospitalPo Sample TypeCAPBLWVUMedicine Barnesville HospitalTest performed at address of the patient encounter.OSKessler Institute for RehabilitationGlucose [Mass/Vol]75 mg/dL70 - 99 mg/dLWVUMedicine Barnesville HospitalPo Sample TypeVENOOUniversity Hospitals Beachwood Medical CenterTest performed at address of the patient encounter.[facility] ULTRASOUND ENDOSCOPICon [id number] Patient Name: Jonatan Olivarez Procedure Date: [...] (Doctor), Marquita Henderson RN (Nurse), Bonnie Leija Performance Specialist (Performance Specialist), Leighton Tabares MD (Doctor) Referring MD: Bonnie Sahu APRN-STUDENT COUNSELLOR (Referring MD) Medicines: Monitored Anesthesia Care, Cipro [...] by the physician, the nurse and the global supply chain director in the procedure room at 14:30 PM. [...] of the pancr (more content not included)...LAB, [facility] Medical CenterCB with Auto Differentialon [id number] Eos #0.30[facility] HealthAbsolute Immature Granulocyte0.03Mer[facility] HealthAbsolute Lymph #2.48Mer[facility] HealthAbsolute [place] #0.71Mercy HealthBasophils (Bld) [#/Vol]0.14 10*3/uLMer HealthBasophils/100 WBC (Bld)1 %0 - 2 %[facility] CenterEosinophils/100 WBC (Bld)3 %1 - 4 %[facility] Medical CenterHematocrit (Bld) [Volume fraction]33.0 %Low36.3 - 47.1 %[facility] Medical CenterHemoglobin.gastrointestinal spec 1 Ql (Stl)10.2 g/dLLow11.9 - 15.1 g/dLAdena Fayette Medical CenterImmature granulocytes/100 WBC (Bld) 0 %0[facility] HealthInterpretation and review of laboratory resultsAbnormalAdena Fayette Medical CenterLymphocytes/100 WBC (Bld)21 %Low24 - 43 %[facility] NorthH (RBC) [Entitic mass]30.1 pg25.2 - 33.5 pgSelect Medical Specialty Hospital - Cincinnati NorthHC (RBC) [Mass/Vol]30.9 g/dL28.4 - 34.8 g/dLSelect Medical Specialty Hospital - Cincinnati NorthV (RBC) [Entitic vol]97.3 fL82.6 - 102.9 fLAdena Fayette Medical Center Monocytes/100 WBC (Bld)6 %3 - 12 %[facility] CenterNRBC Automated0.00.0 per 100 WBC [facility] HealthPlatelet distribution width (Bld) [Ratio]15.5 %High11.8 - 14.4 % Merc HealthPlatelet mean volume (Bld) [Entitic vol]10.3 fL8.1 - 13.5 fLVeterans Health Administration HealthPlatelets (Bld) [#/Vol]313 10*3/uLMercy HealthRBC (Bld) [#/Vol]3.39 10*6/uLLow3.95 - 5.11 m/uLMer HealthSegmented neutrophils/100 WBC (Bld)69 % High36 - 65 %Mercy HealthSegs Absolute7.95[facility] (d) [#/Vol]11.6 10*3/uLHighWinnebago Mental Health InstituteCT ABDOMEN PELVIS W IV CONTRAST Additional Contrast? [...] femoral bypass which appears patent. However, the [place] superior femoral artery just distal to the graft appears thrombosed on the left side. RECOMMENDATIONS: 1. Advise MRI of the abdomen/MRCP with gadolinium contrast enhancement. 2. Advise bilateral mammography in this patient. The patient has no mammograms on file. The findings were sent to the Radiology Results Communication Center at 6:23 pm on 06/20/2021to be communicated to a licensed caregiver. [facility] RIS CONSOLIDATEDEXAMINATION: CT OF THE ABDOMEN [...] there appears be a thrombosis of the [place] superior femoral artery on the left. Numerous [...] there appears be a thrombosis of the [place] superior femoral artery on the left. Numerous [...] femoral bypass which appears patent. However, the [place] superior femoral artery just distal to the graft appears thrombosed on the left side. RECOMMENDATIONS: 1. Advise MRI of the abdomen/MRCP with gadolinium contrast enhancement. 2. Advise bilateral mammography in this patient. The patient has no mammograms on file. The findings were sent to the Radiology Results Communication Center at 6:23 pm on 06/20/2021to be communicated to a licensed caregiver. [employer] Phone: radiology Study observation (narrative)[employer] Phone: cT ABDOMEN PELVIS W IV CONTRAST Additional Contrast? OralOrdered By: Jose Ruslan on [id number] Phone: Comprehensive Metabolic Panel with Bilirubinon 96-82-0672Iwtnpwb [Mass/Vol]3.3 g/dLLow3.5 - 5.2 g/dLVeterans Health Administration Programeter Albumin/Globulin [Mass ratio]1.2 {ratio}Digital CaddiesALP (Bld) [Catalytic activity/Vol]129 U/LHigh35 - 104 U/LMercy HealthALT [Catalytic activity/Vol]8 U/L5 - 33 U/LMercy HealthAnion gap [Moles/Vol]12 mmol/L9 - 17 mmol/LMercy Health AST [Catalytic activity/Vol]11 U/L<32Mercy HealthBilirubin [Mass/Vol]0.23 mg/dL Low0.3 - 1.2 mg/dLMerConsulted HealthBilirubin, IndirectCan not be calculated0.00 - 1.00 mg/dLMercy HealthBilirubin.indirect [Mass/Vol]mg/dL<0.31 mg/dLVeterans Health Administration Health Calcium [Mass/Vol]8.7 mg/dL8.6 - 10.4 mg/dLMer HealthChloride [Moles/Vol]102 mmol/L98 - 107 mmol/LMercy HealthCO2 [Moles/Vol]25 mmol/L20 - 31 mmol/LMercy HealthCreatinine [Mass/Vol]0.95 mg/dLHigh0.50 - 0.90 mg/dLMer HealthFree PSA/Total PSA [Mass fraction]6.0 g/dLLow6.4 - 8.3 g/dLMercy HealthGFR >60>60 mL/minMercy HealthGFR Non- Ieirwbgs76 mL/minLow>60[facility] Medical CenterGlucose [Mass/Vol]119 mg/lDPyao02 - 99 mg/dLAdena Fayette Medical CenterInterpretation and review of laboratory resultsAbnormalAdena Fayette Medical CenterPotassium [Moles/Vol]3.0 mmol/L Low3.7 - 5.3 mmol/LMercy HealthSodium [Moles/Vol]139 mmol/L135 - 144 mmol/LMercy HealthUrea nitrogen (BldV) [Mass/Vol]22 mg/dL8 - 23 mg/dLWinnebago Mental Health InstituteLaboratory - Chemistry and Chemistry - challengeon 67-12-1790DQK/1.73 sq M.predicted MDRD (S/P/Bld) [Vol rate/Area][facility] Centerment on above:Average GFR for 60-69 years old: 85 mL/min/1.73sq m Chronic Kidney Disease: <60 mL/min/1.73sq m Kidney failure: <15 mL/min/1.73sq m eGFR calculated using average adult body mass. Additional eGFR calculator available at: http://www.[employer]/multiple_crcl_2012.htm Stage 1: Some kidney damage normal GFR Stage 2: Mild kidney damage GFR 60-89 Stage 3: Moderate kidney damage GFR 30-59 Stage 4: Severe kidney damage GFR 15-29 Stage 5: Severe kidney damage GFR <15 ESRD - chronic treatment by dialysis or transplant XR HIP RIGHT (2-3 VIEWS)on . Severe end-stage right hip osteoarthrosis. Diffuse osteopenia. 2. No acute fracture or dislocation. [facility] CONSOLIDATEDEXAMINATION: TWO XRAY VIEWS OF THE [...] tissue calcifications overlying the proximal right thigh. [facility] Orlando Brumfield MD - 04/10/2021 EXAMINATION: [...] osteopenia. 2. No acute fracture or dislocation. [employer] Phone: radiology Study observation (narrative)[employer] Phone: XR HIP RIGHT (2-3 VIEWS)Ordered By: Orlando Callejas on [id number] Phone: Basic Metabolic Panel w/ Reflex to MGon 03-19-2021 Anion gap [Moles/Vol]13 mmol/L9 - 17 mmol/LMercy HealthCalcium [Mass/Vol]9.6 mg/dL8.6 - 10.4 mg/dLVeterans Health Administration HealthChloride [Moles/Vol]95 mmol/LLow98 - 107 mmol/L [facility] ProgrameterCO2 [Moles/Vol]32 mmol/LHigh20 - 31 mmol/LMercy HealthCreatinine [Mass/Vol]1.2 mg/dLHigh0.50 - 0.90 mg/dLVeterans Health Administration HealthGFR Lfrswugx65 mL/minLow>60Mer HealthGFR Non- Oovjmdqd27 mL/minLow>60[facility] Health Glucose [Mass/Vol]98 mg/dL70 - 99 mg/dLVeterans Health Administration HealthInterpretation and review of laboratory resultsAbnormalVeterans Health Administration HealthPotassium [Moles/Vol]4.3 mmol/L3.7 - 5.3 mmol/LMercy HealthSodium [Moles/Vol]140 mmol/L135 - 144 mmol/LMercy HealthUrea nitrogen (BldV) [Mass/Vol]17 mg/dL8 - 23 mg/dLVeterans Health Administration HealthUrea nitrogen/Creatinine (Bld) [Mass ratio]14Win[facility] Health InstituteCBC Auto Differentialon [id number] Eos #0.31MerMultiCare Tacoma General HospitalAbsolute Immature Granulocyte<0.03Mer HealthAbsolute Lymph #0.94LowMer HealthAbsolute [place] # 0.39Mer HealthBasophils (Bld) [#/Vol]0.04 10*3/uLMer HealthBasophils/100 WBC (Bld)1 %0 - 2 %[facility] CenterDifferential TypeNOT REPORTEDAdena Fayette Medical Center Eosinophils/100 WBC (Bld)6 %High1 - 4 %[facility] CenterHematocrit (Bld) [Volume fraction]42.9 %36.3 - 47.1 %[facility] CenterHemoglobin.gastrointestinal spec 1 Ql (Stl)13.5 g/dL11.9 - 15.1 g/dLAdena Fayette Medical CenterImmature granulocytes/100 WBC (Bld)0 % 0[facility] CenterInterpretation and review of laboratory resultsAbnormalAdena [facility] Center Lymphocytes/100 WBC (Bld)19 %Low24 - 43 %[facility] NorthH (RBC) [Entitic mass] 28.4 pg25.2 - 33.5 pgSelect [facility] Specialty Hospital - [facility] NorthHC (RBC) [Mass/Vol]31.5 g/dL28.4 - 34.8 g/dL [facility] NorthV (RBC) [Entitic vol]90.3 fL82.6 - 102.9 fLAdena Fayette Medical Center Monocytes/100 WBC (Bld)8 %3 - 12 %[facility] CenterNRBC Automated0.00.0 per 100 WBC [facility] HealthPlatelet distribution width (Bld) [Ratio]15.2 %High11.8 - 14.4 % [facility] HealthPlatelet EstimateNOT REPORTEDVeterans Health Administration HealthPlatelet mean volume (Bld) [Entitic vol]9.0 fL8.1 - 13.5 fLVeterans Health Administration HealthPlatelets (Bld) [#/Vol]254 10*3/uL [facility] CenterRBC (Bld) [#/Vol]4.75 10*6/uL3.95 - 5.11 m/uLAdena Fayette Medical CenterRBC (Bld) [#/Vol]NOT REPORTEDAdena Fayette Medical CenterSegmented neutrophils/100 WBC (Bld)66 %High36 - 65 %[facility] CenterSegs Absolute3.20[facility] CenterWBC (Bld) [#/Vol]4.9 10*3/uLAdena Fayette Medical CenterWBC (Bld) [#/Vol]NOT REPORTEDWinnebago Mental Health InstituteLaboratory - Chemistry and Chemistry - challengeon [id number]/1.73 sq M.predicted MDRD (S/P/Bld) [Vol rate/Area][facility] CenterComment on above:Average GFR for 60-69 years old: 85 mL/min/1.73sq m Chronic Kidney Disease: <60 mL/min/1.73sq m Kidney failure: <15 mL/min/1.73sq m eGFR calculated using average adult body mass. Additional eGFR calculator available at: http://www.[employer]/multiple_crcl_2011.htm Stage 1: Some kidney damage normal GFR Stage 2: Mild kidney damage GFR 60-89 Stage 3: Moderate kidney damage GFR 30-59 Stage 4: Severe kidney damage GFR 15-29 Stage 5: Severe kidney damage GFR <15 ESRD - chronic treatment by dialysis or transplant Basic Metabolic Panel w/ Reflex to MGon 25-18-7252Spwvg gap [Moles/Vol]12 mmol/L 9 - 17 mmol/LMercy HealthCalcium [Mass/Vol]9.4 mg/dL8.6 - 10.4 mg/dLAdena Fayette Medical Center Chloride [Moles/Vol]102 mmol/L98 - 107 mmol/LMercy HealthCO2 [Moles/Vol]25 mmol/L20 - 31 mmol/LMercy HealthCreatinine [Mass/Vol]1 mg/dLHigh0.50 - 0.90 mg/dLAdena Fayette Medical CenterGFR >60>60 mL/minVeterans Health Administration HealthGFR Non- Isqvmhkg32 mL/minLow>60A[facility] CenterGlucose [Mass/Vol]121 mg/eMEdhf74 - 99 mg/dL [facility] CenterInterpretation and review of laboratory resultsAbnormalA[facility] Potassium [Moles/Vol]3.7 mmol/L3.7 - 5.3 mmol/LMercy HealthSodium [Moles/Vol]139 mmol/L135 - 144 mmol/LMercy HealthUrea nitrogen (BldV) [Mass/Vol]13 mg/dL8 - 23 mg/dLAdena Fayette Medical CenterUrea nitrogen/Creatinine (Bld) [Mass ratio]13Winnebago Mental Health InstituteCB Auto Differentialon [id number] Eos #0.36MerMultiCare Tacoma General HospitalAbsolute Immature Granulocyte<0.03A[facility] CenterAbsolute Lymph #1.05LowMer HealthAbsolute [place] #0.48Mer HealthBasophils (Bld) [#/Vol]0.05 10*3/uLAdena Fayette Medical Center Basophils/100 WBC (Bld)1 %0 - 2 %[facility] CenterDifferential TypeNOT REPORTEDMerMultiCare Tacoma General HospitalEosinophils/100 WBC (Bld)7 %High1 - 4 %[facility] CenterHematocrit (Bld) [Volume fraction]40.5 %36.3 - 47.1 %[facility] CenterHemoglobin.gastrointestinal spec 1 Ql (Stl)13.0 g/dL11.9 - 15.1 g/dLAdena Fayette Medical CenterImmature granulocytes/100 WBC (Bld)0 %0[facility] CenterInterpretation and review of laboratory resultsAbnormal [facility] CenterLymphocytes/100 WBC (Bld)19 %Low24 - 43 %[facility] NorthH (RBC) [Entitic mass]28.8 pg25.2 - 33.5 pgSelect [facility] Specialty Hospital [facility] NorthHC (RBC) [Mass/Vol]32.1 g/dL 28.4 - 34.8 g/dLSelect Medical Specialty Hospital - [facility] NorthV (RBC) [Entitic vol]89.6 fL82.6 - 102.9 fLAdena Fayette Medical CenterMonocytes/100 WBC (Bld)9 %3 - 12 %[facility] CenterNRBC Automated0.00.0 per 100 WBCVeterans Health Administration HealthPlatelet distribution width (Bld) [Ratio]15.8 %High11.8 - 14.4 % [facility] HealthPlatelet EstimateNOT REPORTEDVeterans Health Administration HealthPlatelet mean volume (Bld) [Entitic vol]9.0 fL8.1 - 13.5 fLVeterans Health Administration HealthPlatelets (Bld) [#/Vol]219 10*3/uL [facility] CenterRBC (Bld) [#/Vol]4.52 10*6/uL3.95 - 5.11 m/uLAdena Fayette Medical CenterRBC (Bld) [#/Vol]NOT REPORTEDAdena Fayette Medical CenterSegmented neutrophils/100 WBC (Bld)64 %36 - 65 % [facility] CenterSe Absolute3.51MerMultiCare Tacoma General HospitalWBC (Bld) [#/Vol]5.5 10*3/uLAdena Fayette Medical CenterWBC (Bld) [#/Vol]NOT REPORTEDWinnebago Mental Health InstituteLaboratory - Chemistry and Chemistry - challengeon [id number]/1.73 sq M.predicted MDRD (S/P/Bld) [Vol rate/Area][facility] on above:Average GFR for 60-69 years old: 85 mL/min/1.73sq m Chronic Kidney Disease: <60 mL/min/1.73sq m Kidney failure: <15 mL/min/1.73sq m eGFR calculated using average adult body mass. Additional eGFR calculator available at: http://www.[employer]/multiple_crcl_2012.htm Stage 1: Some kidney damage normal GFR Stage 2: Mild kidney damage GFR 60-89 Stage 3: Moderate kidney damage GFR 30-59 Stage 4: Severe kidney damage GFR 15-29 Stage 5: Severe kidney damage GFR <15 ESRD - chronic treatment by dialysis or transplant XR CHEST (2 VW)on 36-89-3866Wq significant change in vascular congestion with findings of interstitial edema and trace pleural effusions. [facility] CONSOLIDATEDEXAMINATION: TWO XRAY VIEWS OF THE CHEST 03/18/2021 8:19 am COMPARISON: Chest CT and radiograph 03/17/2021 HISTORY: ORDERING SYSTEM PROVIDED HISTORY: hypoxia TECHNOLOGIST PROVIDED HISTORY: hypoxia FINDINGS: Bilateral perihilar opacities, interstitial opacities and mild septal thickening. Blunting of the costophrenic angles. No pneumothorax identified. No significant effusion. [facility] Diego Gamble MD - 03/18/2021 EXAMINATION: [...] of interstitial edema and trace pleural effusions. [employer] Phone: radiology Study observation (narrative)[employer] Phone: XR CHEST (2 VW)Ordered By: Diego Alcantara on 03-18-2021 [employer] Phone: Basic Metabolic Panelon 16-99-1126Ocgrq gap [Moles/Vol]12 mmol/L9 - 17 mmol/LMercy HealthCalcium [Mass/Vol]9.2 mg/dL8.6 - 10.4 mg/dLVeterans Health Administration HealthChloride [Moles/Vol]106 mmol/L98 - 107 mmol/LMercy Health CO2 [Moles/Vol]22 mmol/L20 - 31 mmol/LMercy HealthCreatinine [Mass/Vol]1.07 mg/dLHigh0.50 - 0.90 mg/dLTuscarawas Hospitalcy HealthGFR >60>60 mL/minMercy HealthGFR Non- Aqsgzevt14 mL/minLow>60Mer HealthGlucose [Mass/Vol]92 mg/dL70 - 99 mg/dLVeterans Health Administration HealthPotassium [Moles/Vol]4.0 mmol/L3.7 - 5.3 mmol/L [facility] ProgrameterSodium [Moles/Vol]140 mmol/L135 - 144 mmol/LMercy HealthUrea nitrogen (BldV) [Mass/Vol]14 mg/dL8 - 23 mg/dLVeterans Health Administration HealthUrea nitrogen/Creatinine (Bld) [Mass ratio]13MerMultiCare Tacoma General HospitalBrain Natriuretic Peptideon 35-70-6263MXQ InterpretationNOT REPORTEDMerMultiCare Tacoma General HospitalNatriuretic peptide B (Bld) [Mass/Vol]6864 pg/mLHigh<300MerMultiCare Tacoma General HospitalComment on above: An age-independent cutoff point of 300 pg/ml has a 98% negative predictive value excluding acute heart failure. C-Reactive Proteinon 44-50-4853TCN [Mass/Vol]159.4 mg/LHigh0.0 - 5.0 mg/LMercy HealthInterpretation and review of laboratory resultsAbnormalMerEast Liverpool City HospitalCBC Auto Differentialon [id number] Eos #0.38Mercy HealthAbsolute Immature Granulocyte<0.03Mercy HealthAbsolute Lymph #1.29Mercy HealthAbsolute [place] #0.48Mercy HealthBasophils (Bld) [#/Vol]0.05 10*3/uLMer Health Basophils/100 WBC (Bld)1 %0 - 2 %[facility] CenterDifferential TypeNOT REPORTEDMer HealthEosinophils/100 WBC (Bld)6 %High1 - 4 %[facility] CenterHematocrit (Bld) [Volume fraction]33.9 %Low36.3 - 47.1 %[facility] CenterHemoglobin.gastrointestinal spec 1 Ql (Stl)11.0 g/dLLow11.9 - 15.1 g/dLAdena Fayette Medical CenterImmature granulocytes/100 WBC (Bld)0 %0[facility] HealthInterpretation and review of laboratory resultsAbnormal [facility] CenterLymphocytes/100 WBC (Bld)19 %Low24 - 43 %[facility] NorthH (RBC) [Entitic mass]29.0 pg25.2 - 33.5 pgSelect [facility] Specialty Hospital [facility] NorthHC (RBC) [Mass/Vol]32.4 g/dL 28.4 - 34.8 g/dLSelect Medical Specialty Hospital - [facility] NorthV (RBC) [Entitic vol]89.4 fL82.6 - 102.9 fLVeterans Health Administration HealthMonocytes/100 WBC (Bld)7 %3 - 12 %[facility] CenterNRBC Automated0.00.0 per 100 WBCVeterans Health Administration HealthPlatelet distribution width (Bld) [Ratio]16.2 %High11.8 - 14.4 % [facility] HealthPlatelet EstimateNOT REPORTEDVeterans Health Administration HealthPlatelet mean volume (Bld) [Entitic vol]10.1 fL8.1 - 13.5 fLMer HealthPlatelets (Bld) [#/Vol]203 10*3/uL Merc HealthRBC (Bld) [#/Vol]3.79 10*6/uLLow3.95 - 5.11 m/uLMer HealthRBC (Bld) [#/Vol]NOT REPORTEDMer HealthSegmented neutrophils/100 WBC (Bld)67 %High 36 - 65 %[facility] CenterSegs Absolute4.51Mer HealthWBC (Bld) [#/Vol]6.7 10*3/uL Merc HealthWBC (Bld) [#/Vol]NOT REPORTEDMer HealthMercy HealthAbsolute Eos # 0.31Mer HealthAbsolute Immature Granulocyte<0.03Mer HealthAbsolute Lymph # 1.26Mer HealthAbsolute [place] #0.46Mer HealthBasophils (Bld) [#/Vol]0.05 10*3/uLMer HealthBasophils/100 WBC (Bld)1 %0 - 2 %[facility] CenterDifferential TypeNOT REPORTEDAdena Fayette Medical CenterEosinophils/100 WBC (Bld)5 %High1 - 4 %[facility] Hematocrit (Bld) [Volume fraction]34.3 %Low36.3 - 47.1 %[facility] Hemoglobin.gastrointestinal spec 1 Ql (Stl)10.8 g/dLLow11.9 - 15.1 g/dLAdena Fayette Medical CenterImmature granulocytes/100 WBC (Bld)0 %0[facility] CenterInterpretation and review of laboratory resultsAbnormalAdena Fayette Medical CenterLymphocytes/100 WBC (Bld)20 %Low 24 - 43 %[facility] CenterMCH (RBC) [Entitic mass]28.6 pg25.2 - 33.5 pgAdena [facility] Center MCHC (RBC) [Mass/Vol]31.5 g/dL28.4 - 34.8 g/dLAdena Fayette Medical CenterMCV (RBC) [Entitic vol]91.0 fL82.6 - 102.9 fLVeterans Health Administration HealthMonocytes/100 WBC (Bld)7 %3 - 12 %[facility] CenterNRBC Automated0.00.0 per 100 WBCVeterans Health Administration HealthPlatelet distribution width (Bld) [Ratio]16.0 %High11.8 - 14.4 %[facility] HealthPlatelet EstimateNOT REPORTED [facility] HealthPlatelet mean volume (Bld) [Entitic vol]9.1 fL8.1 - 13.5 fLVeterans Health Administration HealthPlatelets (Bld) [#/Vol]195 10*3/uLMer HealthRBC (Bld) [#/Vol]3.77 10*6/uLLow3.95 - 5.11 m/uLMer HealthRBC (Bld) [#/Vol]NOT REPORTEDA[facility] Segmented neutrophils/100 WBC (Bld)67 %High36 - 65 %[facility] CenterSe Absolute 4.26[facility] CenterWBC (Bld) [#/Vol]6.4 10*3/uLAdena Fayette Medical CenterWBC (Bld) [#/Vol]NOT REPORTEDWinnebago Mental Health InstituteCOVID-19, Rapidon 85-84-6463LHTE-CoV-2 (COVID- 19) RNA JANIA+probe Ql (Unsp spec)Not detectedNot DetectedAdena Fayette Medical CenterComment on above: Rapid NAAT: The specimen is [...] management decisions. Fact sheet for Healthcare Providers: https://www.fda.gov/media/122971/download Fact sheet for Patients: https://www.fda.gov/media/040525/download Methodology: Isothermal Nucleic Acid Amplification Specimen Description.NASOPHARYNGEAL SWABWinnebago Mental Health InstituteCT CHEST PULMONARY EMBOLISM W CONTRASTon [id number] evidence of pulmonary embolism. Pulmonary artery hypertension, [...] Additional unchanged findings, as above. RECOMMENDATIONS: Unavailable [facility] RIS CONSOLIDATEDEXAMINATION: CTA OF THE CHEST [...] No acute bone or soft tissue abnormality. [facility] Diego Murillo MD - 03/17/2021 EXAMINATION: [...] Additional unchanged findings, as above. RECOMMENDATIONS: Unavailable [employer] Phone: radiology Study observation (narrative)[employer] Phone: cT CHEST PULMONARY EMBOLISM W CONTRASTOrdered By: Diego Mcclure on 32-10-6058VyythHackHands Phone: [phone]-Mjuen, Quantitativeon 04-91-2029R-Dimer, Quant2.31 Davis Memorial HospitalDigital CaddiesComment on above: When combined with a low [...] distal DVT. Interpretation and review of laboratory resultsAbnonovant health clemmons medical centerStemCyte EKG 12 Leadon 99-33-6890Qsdtpq [id number] [employer] Phone: p [id number] Group Phone: p-R [id number] [employer] Phone: Q-T [id number] [employer] Phone: QRS Dioqnddr26 [employer] Phone: QTc Calculation ([phone])403 [employer] Phone: R Sojd66dbgmofvSxfwniORGA Group Phone: T Rzuu47azfpaybCxzzhiORGA Group Phone: Ventricular [id number] [employer] Phone: Normal sinus rhythm Possible Left atrial enlargement Incomplete right bundle branch block Borderline ECG When compared with ECG of 21-FEB-2021 19:10, No significant change was found Confirmed by Josef Boroks MD ([id number]) on 03/17/2021 9:28:37 [facility] Josef Brooks MD - 03/17/2021 Normal sinus rhythm Possible Left atrial enlargement Incomplete right bundle branch block Borderline ECG When compared with ECG of 21-FEB-2021 19:10, No significant change was found Confirmed by Josef Brooks MD ([id number]) on 03/17/2021 9:28:37 PMVeterans Health Administration Health Work Phone: [facility] Programeter Work Phone: laboratory - Chemistry and Chemistry - challengeon 29-41-8258FFH/1.73 sq M.predicted MDRD (S/P/Bld) [Vol rate/Area][facility] Programeter Comment on above:Average GFR for 60-69 years old: 85 mL/min/1.73sq m Chronic Kidney Disease: <60 mL/min/1.73sq m Kidney failure: <15 mL/min/1.73sq m eGFR calculated using average adult body mass. Additional eGFR calculator available at: http://www.[employer]/multiple_crcl_2012.htm Stage 1: Some kidney damage normal GFR Stage 2: Mild kidney damage GFR 60-89 Stage 3: Moderate kidney damage GFR 30-59 Stage 4: Severe kidney damage GFR 15-29 Stage 5: Severe kidney damage GFR <15 ESRD - chronic treatment by dialysis or transplant Lactate, Sepsison 70-01-1899Hyqdpr Acid, Sepsis0.6 mmol/L0.5 - 1.9 mmol/LMercy HealthLactic Acid, Sepsis, Whole BloodNOT REPORTED0.5 - 1.9 mmol/LMercy Health [facility] HealthMicroscopic Urinalysison 03-17-2021-[facility] HealthAmorphous, UANOT REPORTEDNoneMercy HealthBacteria, UA3+AbnormalNoneMercy HealthCasts UANOT REPORTED/LPFMercy HealthCrystals, UANOT REPORTEDNone /HPFMercy HealthEpithelial Cells UA2 TO 5Mercy HealthInterpretation and review of laboratory results AbnormalMercy HealthMucus, UANOT REPORTEDNoneMercy HealthOther Observations UA NOT REPORTEDNOT REQ.Mercy HealthRBC, UA0 TO 2Mercy HealthRenal Epithelial, UANOT REPORTED0 /HPFMercy HealthTrichomonas, UANOT REPORTEDNoneMercy HealthWBC, UA0 TO 2Mercy HealthYeast, UANOT REPORTEDNoneMercy HealthMercy HealthNo Panel Informationon 47-37-3859Hulzabzdkpveju and review of laboratory resultsAbnormal Mercy HealthMercy HealthProtime-INRon 19-13-7770WGW Coag (Bld) [Relative time] 1.0 {INR}Mercy HealthComment on above: Non-therapeutic Range: INR = 0.9-1.2 Therapeutic Range: Moderate Anticoagulant Intensity: INR = 2.0-3.0 High Anticoagulant Intensity: INR = 2.5-3.5 PT Coag (PPP) [Time]13 sMercy HealthMercy HealthSedimentation Rateon 03-17-2021 Interpretation and review of laboratory resultsAbnormalMercy HealthSed Rate27 mm High0 - 20 mmMercy HealthMercy HealthTroponinon 75-10-6158Wibvcdps InterpNOT REPORTEDMercy HealthTroponin TNOT REPORTED<0.03 ng/mLMercy HealthTroponin, High Sensitivity9 ng/L0 - 14 ng/LMercy HealthComment on above: High Sensitivity Troponin values cannot be compared with other Troponin methodologies. Patients with high levels of Biotin oral intake (i.e >5mg/day) may have falsely decreased Troponin levels. Samples collected within 8 hours of biotin intake may require additional information for diagnosis. Mercy HealthUrinalysis Reflex to Cultureon [id number] UrineNegative NEGATIVEMercy HealthColor, UAYellowYellowMercy HealthGlucose, UrNegativeNEGATIVE Mercy HealthInterpretation and review of laboratory resultsAbnormalMercy Health Ketones Ql (U)NegativeNEGATIVEMercy HealthLeukocyte esterase Test strip Ql (U) NegativeNEGATIVEMercy HealthNitrite, UrinePositiveAbnormalNEGATIVEMercy Health pH, UA6.5Mercy HealthProtein, UANegativeNEGATIVEMercy HealthSpecific [place], UA 1.020Mercy HealthTurbidity UAClearClearMercy HealthUrinalysis CommentsNOT REPORTEDMercy HealthUrine HgbNegativeNEGATIVEMercy HealthUrobilinogen, Urine NormalNormalMercy HealthMercy HealthVL DUP LOWER EXTREMITY VENOUS BILATERALon 69-54-1839TzqwJose Mercer MD - 03/17/2021 [facility] Vascular Lower Extremities DVT Study Procedure Patient Name SHER Date of Study 03/17/2021 JONATAN Phillips Date of 1960 Gender Female Age 60 year(s) Race Room Number 01A Corporate ID # [id number] Patient MR # [id number] Home Energy Inspector Corrine Peterson Interpreting Physician Jose Mercer MD Referring Nurse Fredy Billingsley, Referring Physician Practitioner O AND M SUPERVISOR-STUDENT COUNSELLOR Procedure Type of Study: Veins: Lower Extremities [...] + !Location !Visualized!Compressibility!Thrombosis! + (more content not included)...[employer] Phone: radiology Study observation (narrative)[employer] Phone: VL DUP LOWER EXTREMITY VENOUS BILATERALOrdered By: Jose Mercer on [id number] Phone: xr CHEST PORTABLEon [id number] reticular airspace opacities. This could represent interstitial [...] versus atypical/viral infection. Small bilateral pleural effusions. [employer] Phone: radiology Study observation (narrative)[employer] Phone: XR CHEST PORTABLEOrdered By: Carlo Song on 12-84-8875[facility] Work Phone: basic to comprehensive upgradeon 67-60-0589Frucjgl [Mass/Vol]3.4 g/dLLow3.5 - 5.2 g/dLMer HealthAlbumin/Globulin [Mass ratio]1.1 {ratio}Cherrington HospitalSuddenValuesALP (Bld) [Catalytic activity/Vol]94 U/L35 - 104 U/LMercy HealthALT [Catalytic activity/Vol]9 U/L5 - 33 U/LMercy HealthAST [Catalytic activity/Vol]11 U/L<32Mer HealthBilirubin [Mass/Vol]0.17 mg/dLLow0.3 - 1.2 mg/dLAdena Fayette Medical CenterFree PSA/Total PSA [Mass fraction]6.4 g/dL6.4 - 8.3 g/dLVeterans Health Administration HealthInterpretation and review of laboratory resultsAbnormalAgnesian HealthCare Auto Differentialon [id number] Eos #0.39Mer HealthAbsolute Immature Granulocyte<0.03Mer HealthAbsolute Lymph #1.46Mer HealthAbsolute [place] #0.42Mer HealthBasophils (Bld) [#/Vol]0.07 10*3/uLMer Health Basophils/100 WBC (Bld)1 %0 - 2 %[facility] CenterDifferential TypeNOT REPORTEDVeterans Health Administration HealthEosinophils/100 WBC (Bld)6 %High1 - 4 %[facility] CenterHematocrit (Bld) [Volume fraction]43.4 %36.3 - 47.1 %[facility] CenterHemoglobin.gastrointestinal spec 1 Ql (Stl)13.8 g/dL11.9 - 15.1 g/dLAdena Fayette Medical CenterImmature granulocytes/100 WBC (Bld)0 %0[facility] CenterInterpretation and review of laboratory resultsAbnormal [facility] CenterLymphocytes/100 WBC (Bld)24 %24 - 43 %[facility] NorthH (RBC) [Entitic mass]29.3 pg25.2 - 33.5 pgSelect Medical Specialty Hospital - [facility] NorthHC (RBC) [Mass/Vol]31.8 g/dL28.4 - 34.8 g/dLSelect Medical Specialty Hospital - Cincinnati NorthV (RBC) [Entitic vol]92.1 fL82.6 - 102.9 fLAdena Fayette Medical Center Monocytes/100 WBC (Bld)7 %3 - 12 %[facility] CenterNRBC Automated0.00.0 per 100 WBC [facility] HealthPlatelet distribution width (Bld) [Ratio]14.7 %High11.8 - 14.4 % [facility] HealthPlatelet EstimateNOT REPORTEDVeterans Health Administration HealthPlatelet mean volume (Bld) [Entitic vol]8.9 fL8.1 - 13.5 fLVeterans Health Administration HealthPlatelets (Bld) [#/Vol]232 10*3/uL [facility] HealthRBC (Bld) [#/Vol]4.71 10*6/uL3.95 - 5.11 m/uLMer HealthRBC (Bld) [#/Vol]NOT REPORTEDAdena Fayette Medical CenterSegmented neutrophils/100 WBC (Bld)62 %36 - 65 % [facility] CenterSegs Absolute3.83Mer HealthWBC (Bld) [#/Vol]6.2 10*3/uLMer HealthWBC (Bld) [#/Vol]NOT REPORTEDAdena Health Systemcy HealthCT CERVICAL SPINE WO CONTRASTon 08-63-8685Bn acute abnormality of the cervical spine. [facility] CONSOLIDATEDEXAMINATION: CT OF THE CERVICAL SPINE [...] There is no prevertebral soft tissue swelling. [facility] Nia Rouse MD - 02/09/2021 EXAMINATION: [...] No acute abnormality of the cervical spine. [employer] Phone: radiology Study observation (narrative)[employer] Phone: cT CERVICAL SPINE WO CONTRASTOrdered By: Nia Trejo on 42-15-9525BgbqfHackHands Phone: ct Head WO Contraston 79-98-1499Zx evidence of acute intracranial process. Mild early chronic small vessel ischemic changes noted. Recommend clinical correlation for cardiovascular risk factors. [facility] CONSOLIDATEDEXAMINATION: CT OF THE HEAD WITHOUT [...] tissues. No acute fracture. No scalp hematoma. [facility] Josse Gutiérrez MD - 02/09/2021 EXAMINATION: [...] Recommend clinical correlation for cardiovascular risk factors. [employer] Phone: radiology Study observation (narrative)[employer] Phone: cT Head WO ContrastOrdered By: Josse Ravi on 21-69-6107NibjwHackHands Phone: Comprehensive Metabolic Panel w/ Reflex to MGon 18-70-6421Woklnhx [Mass/Vol]3.7 g/dL3.5 - 5.2 g/dLMer HealthAlbumin/Globulin [Mass ratio]1.3 {ratio}Cherrington HospitalSuddenValuesALP (Bld) [Catalytic activity/Vol]79 U/L35 - 104 U/LMercy [...] 8.3 g/dLMercy HealthGFR >60>60 mL/minMercy HealthGFR Non- Cswzqohz26 mL/minLow>60Mercy HealthGlucose [Mass/Vol]75 mg/dL70 - 99 mg/dLMercy HealthInterpretation and review of laboratory resultsAbnormalMer HealthPotassium [Moles/Vol]4.4 mmol/L 3.7 - 5.3 mmol/LMercy HealthSodium [Moles/Vol]137 mmol/L135 - 144 mmol/LMercy HealthUrea nitrogen (BldV) [Mass/Vol]22 mg/dL8 - 23 mg/dLVeterans Health Administration HealthUrea nitrogen/Creatinine (Bld) [Mass ratio]23HighWinnebago Mental Health InstituteLaboratory - Chemistry and Chemistry - challengeon [id number]/1.73 sq M.predicted MDRD (S/P/Bld) [Vol rate/Area][facility] CenterComment on above:Average GFR for 60-69 years old: 85 mL/min/1.73sq m Chronic Kidney Disease: <60 mL/min/1.73sq m Kidney failure: <15 mL/min/1.73sq m eGFR calculated using average adult body mass. Additional eGFR calculator available at: http://www.[employer]/multiple_crcl_2011.htm Stage 1: Some kidney damage normal GFR [...] No evidence of acute fracture or dislocation. Lgph-fs-mochgxra glenohumeral osteoarthritis. Unchanged benign-appearing soft tissue calcification [...] clips project over the bilateral inguinal regions. [facility] Yanira Hahn MD - 02/09/2021 EXAMINATION: 4 XRAY VIEWS OF THE LEFT SHOULDER; ONE XRAY VIEW OF THE CHEST; THREE XRAY VIEWS OF THE SACRUM/COCCYX 02/09/2021 12:35 pm COMPARISON: Chest radiograph, 01/12/2021 and shoulder radiograph, 04/12/2019 HISTORY: ORDERING SYSTEM PROVIDED HISTORY: fall TECHNOLOGIST PROVIDED HISTORY: fall FINDINGS: Left shoulder: No evidence of acute fracture or dislocation. Vtrh-yw-honeunvt glenohumeral osteoarthritis. Unchanged benign-appearing soft tissue calcification [...] fracture of the bony sacrum or coccyx. [employer] Work Phone: No Panel InformationOrdered By: Yanira Jackson on [id number] Phone: [phone]-ZIMjy [phone] Coag (Bld) [Relative time] 1.0 {INR}[facility] HospitalSuddenValuesSelect Specialty Hospital on above: Non-therapeutic Range: INR = 0.9-1.2 Therapeutic Range: Moderate Anticoagulant Intensity: INR = 2.0-3.0 High Anticoagulant Intensity: INR = 2.5-3.5 PT Coag (PPP) [Time]12.9 sMMile Bluff Medical CenterTroponinon [id number] InterpNOT REPORTEDAdena Health Systemni TNOT REPORTED<0.03 ng/mLTuscarawas HospitalConsulted [facility] Troponin, High Stclxhaohqt35 ng/L0 - 14 ng/LMMcKitrick Hospital on above: High Sensitivity Troponin values cannot be compared with other Troponin methodologies. Patients with high levels of Biotin oral intake (i.e >5mg/day) may have falsely decreased Troponin levels. Samples collected within 8 hours of biotin intake may require additional information for diagnosis. Digital CaddiesXR CHEST PORTABLEon [phone] Study observation (narrative)[employer] Phone: XR KNEE RIGHT (3 VIEWS)on [id number] acute findings. [facility] CONSOLIDATEDEXAMINATION: THREE XRAY VIEWS OF THE RIGHT KNEE 02/09/2021 12:34 pm COMPARISON: January 13, 2020 HISTORY: ORDERING SYSTEM PROVIDED HISTORY: pain s/p fall TECHNOLOGIST PROVIDED HISTORY: pain s/p fall FINDINGS: Knee alignment is anatomic. No acute osseous abnormalities. There is generalized osteopenia. Wbhk-cf-vsefcekg tricompartmental degenerative change most significant medial femorotibial compartment with loss joint space and osteophyte formation. No significant joint effusion. Atherosclerosis throughout the soft tissues. [facility] Lele Gómez DO - 02/09/2021 EXAMINATION: THREE XRAY VIEWS OF THE RIGHT KNEE 02/09/2021 12:34 pm COMPARISON: January 13, 2020 HISTORY: ORDERING SYSTEM PROVIDED HISTORY: pain s/p fall TECHNOLOGIST PROVIDED HISTORY: pain s/p fall FINDINGS: Knee alignment is anatomic. No acute osseous abnormalities. There is generalized osteopenia. Cfiy-yb-uvbipzri tricompartmental degenerative change most significant medial femorotibial compartment with loss joint space and osteophyte formation. No significant joint effusion. Atherosclerosis throughout the soft tissues. IMPRESSION: No acute findings. [employer] Phone: radiology Study observation (narrative)[employer] Phone: XR KNEE RIGHT (3 VIEWS)Ordered By: Lele Jacques on [id number] Phone: XR SACRUM COCCYX (MIN 2 VIEWS)on [id number] Study observation (narrative)[employer] Phone: XR SHOULDER LEFT (MIN 2 VIEWS)on 00-25-0583Okeocqdzj Study observation (narrative)[employer] Phone: cBC Auto DifferentialOrdered By: Marita Munoz on [id number] Eos #0.25[facility]carawas HospitalSasken Communication Technologies Phone: absolute Immature Granulocyte0.03T[facility]carawas HospitalSasken Communication Technologies Phone: absolute Lymph #0.77LowTuscarawas HospitalSasken Communication Technologies Phone: absolute [place] #0.29[facility] HospitalSasken Communication Technologies Phone: basophils (Bld) [#/Vol]0.09 10*3/uLTuscarawas HospitalSasken Communication Technologies Phone: basophils/100 WBC (Bld)1 %0 - 2 %[employer] Phone: differential TypeNOT REPORTEDTuscarawas HospitalSasken Communication Technologies Phone: eosinophils/100 WBC (Bld)3 %1 - 4 %[employer] Phone: Hematocrit (Bld) [Volume fraction]44.1 %36.3 - 47.1 % [employer] Phone: Hemoglobin.gastrointestinal spec 1 Ql (Stl)14.5 g/dL 11.9 - 15.1 g/dLTuscarawas HospitalSasken Communication Technologies Phone: Immature granulocytes/100 WBC (Bld)0 %0Tuscarawas HospitalSasken Communication Technologies Phone: Interpretation and review of laboratory results AbnormalTuscarawas HospitalSasken Communication Technologies Phone: lymphocytes/100 WBC (Bld)8 %Low24 - 43 %[employer] Phone: MCH (RBC) [Entitic mass]29.8 pg25.2 - 33.5 pgTuscarawas HospitalSasken Communication Technologies Phone: MCHC (RBC) [Mass/Vol]32.9 g/dL28.4 - 34.8 g/dLTuscarawas HospitalSasken Communication Technologies Phone: MCV (RBC) [Entitic vol]90.7 fL82.6 - 102.9 fLHackHands Phone: [phone]/100 WBC (Bld)3 %3 - 12 %[employer] Phone: NRBC Automated0.00.0 per 100 WBCHackHands Phone: Platelet distribution width (Bld) [Ratio]15.8 %High 11.8 - 14.4 %[employer] Phone: [phone] EstimateNOT REPORTEDHackHands Phone: [phone] mean volume (Bld) [Entitic vol]9.2 fL8.1 - 13.5 fLTuscarawas HospitalSasken Communication Technologies Phone: [phone] (Bld) [#/Vol]298 10*3/uLHackHands Phone: [phone] (Bld) [#/Vol]4.86 10*6/uL3.95 - 5.11 m/[employer] Phone: [phone] (Bld) [#/Vol]NOT REPORTEDTuscarawas HospitalSasken Communication Technologies Phone: Segmented neutrophils/100 WBC (Bld)85 %High36 - 65 % [employer] Phone: Segs Absolute7.91T[facility]carawas HospitalSasken Communication Technologies Phone: WBC (Bld) [#/Vol]9.3 10*3/uLHackHands Phone: [phone] (Bld) [#/Vol]NOT REPORTEDTuscarawas HospitalSasken Communication Technologies Phone: [facility] HospitalSasken Communication Technologies Phone: [phone]-96, RapidOrdered By: Marita Munoz on [id number]-CoV-2 (COVID-19) RNA JANIA+probe Ql (Unsp spec)Not detectedNot DetectedHackHands Phone: comment on above: Rapid NAAT: The [...] management decisions. Fact sheet for Healthcare Providers: https://www.fda.gov/media/455501/download Fact sheet for Patients: https://www.fda.gov/media/597089/download Methodology: Isothermal Nucleic Acid Amplification Specimen Description.NASOPHARYNGEAL SWABHackHands Phone: [facility] HospitalSasken Communication Technologies Phone: cT ABDOMEN PELVIS WO CONTRAST Additional [...] obstruction, as discussed above. 9. Atrophic right kidney.[employer] Phone: eXAMINATION: CT OF THE ABDOMEN AND [...] subcutaneous soft tissues are otherwise unremarkable in appearance.[employer] Work Phone: e, [facility] Incoming Radiant Results From [employer] - 01/17/2021 6:31 AM EDT EXAMINATION: CT [...] as discussed above. 9. Atrophic right kidney. [employer] Phone: [employer] Phone: comprehensive Metabolic Panel w/ Reflex to MGOrdered By: Marita Munoz on [id number] [Mass/Vol]4.1 g/dL3.5 - 5.2 g/dLHackHands Phone: albumin/Globulin [Mass ratio]1.4 {ratio}[facility] HospitalMD Insider Phone: QLP (Bld) [Catalytic activity/Vol]114 U/LHigh35 - 104 U/LMthe university of toledo medical centery Programeter Work Phone: aLT [Catalytic activity/Vol]6 U/L5 - 33 U/LMthe university of [facility]led[facility] medical centery [employer] Work Phone: anion gap [Moles/Vol]14 mmol/L9 - 17 mmol/LMercy [employer] Work Phone: aST [Catalytic activity/Vol]10 U/L<32MerSasken [employer] Technologies Phone: bilirubin [Mass/Vol]0.38 mg/dL0.3 - 1.2 mg/dLTuscarawas HospitalSasken Communication Technologies Phone: calcium [Mass/Vol]9.6 mg/dL8.6 - 10.4 mg/dLTuscarawas HospitalSAJE Pharma Work Phone: Vhloride [Moles/Vol]99 mmol/L98 - 107 mmol/LMIQ Elitey [employer] Work Phone: cO2 [Moles/Vol]23 mmol/L20 - 31 mmol/LMfostoria city hospital [employer] Work Phone: creatinine [Mass/Vol]1.09 mg/dLHigh0.50 - 0.90 mg/dL [facility] [employer] Phone: Free PSA/Total PSA [Mass fraction]7.0 g/dL6.4 - 8.3 g/dLTuscarawas HospitalSasken Communication Technologies Phone: GFR >60>60 mL/minTuscarawas HospitalSasken Communication Technologies Phone: GFR Non- Glcnluiy10 mL/minLow>60Tuscarawas HospitalSasken Communication Technologies Phone: Glucose [Mass/Vol]143 mg/kPBtaw10 - 99 mg/dLTuscarawas HospitalSasken Communication Technologies Phone: Interpretation and review of laboratory results AbnormalTuscarawas HospitalSAJE Pharma Work Phone: potassium [Moles/Vol]3.9 mmol/L3.7 - 5.3 mmol/LMfostoria city hospital [employer] Work Phone: sodium [Moles/Vol]136 mmol/L135 - 144 mmol/LMthe university of [facility]led[facility] medical centery [employer] Work Phone: Urea nitrogen (BldV) [Mass/Vol]16 mg/dL8 - 23 mg/dL [facility] HospitalMD Insider Phone: Urea nitrogen/Creatinine (Bld) [Mass ratio]15T[facility]caraw[facility] HospitalSasken Communication Technologies Phone: [facility] HospitalSasken Communication Technologies Phone: laboratory - Chemistry and Chemistry - challenge Ordered By: Marita Munoz on 53-38-1532LQE/1.73 sq M.predicted MDRD (S/P/Bld) [Vol rate/Area][facility] HospitalMD Insider Phone: comment on above:Average GFR for 60-69 years old: 85 mL/min/1.73sq m Chronic Kidney Disease: <60 mL/min/1.73sq m Kidney failure: <15 mL/min/1.73sq m eGFR calculated using average adult body mass. Additional eGFR calculator available at: http://www.[employer]/multiple_crcl_2012.htm Stage 1: Some kidney damage normal GFR Stage 2: Mild kidney damage GFR 60-89 Stage 3: Moderate kidney damage GFR 30-59 Stage 4: Severe kidney damage GFR 15-29 Stage 5: Severe kidney damage GFR <15 ESRD - chronic treatment by dialysis or transplant Lactic acid, plasmaOrdered By: Marita Munoz on 16-50-0659Kzviavi [Moles/Vol]1 mmol/L0.5 - 2.2 mmol/LMthe university of [facility]led[facility] medical centery [employer] Work Phone: lactic Acid, Whole BloodNOT REPORTED0.7 - 2.1 mmol/L [facility] HospitalMD Insider Phone: [facility] HospitalSasken Communication Technologies Phone: lipaseOrdered By: Marita Munoz on 22-67-0211Jwodke [Catalytic activity/Vol]37 U/L13 - 60 U/LMercy Programeter Work Phone: [facility] HospitalSAJE Pharma Work Phone: basic Metabolic Panel w/ Reflex to MGOrdered By: Albert Ibrahim on [id number] gap [Moles/Vol]11 mmol/L9 - 17 mmol/LMthe university of [facility] centery [employer] Work Phone: calcium [Mass/Vol]8.9 mg/dL8.6 - 10.4 mg/dLTuscarawas HospitalSasken Communication Technologies Phone: chloride [Moles/Vol]104 mmol/L98 - 107 mmol/LMthe university of [facility] centery [employer] Work Phone: cO2 [Moles/Vol]24 mmol/L20 - 31 mmol/LMthe [facility] of [facility] centery [employer] Work Phone: creatinine [Mass/Vol]0.87 mg/dL0.50 - 0.90 mg/dLVeterans Health Administration Sinobpo Phone: GFR >60>60 mL/minTuscarawas HospitalSasken Communication Technologies Phone: GFR Non->60>60 mL/minTuscarawas HospitalSasken Communication Technologies Phone: Glucose [Mass/Vol]94 mg/dL70 - 99 mg/dLVeterans Health Administration Sinobpo Phone: potassium [Moles/Vol]4.6 mmol/L3.7 - 5.3 mmol/LMthe university of [facility] centery [employer] Work Phone: sodium [Moles/Vol]139 mmol/L135 - 144 mmol/LMthe university of [facility] medical centery [employer] Work Phone: Urea nitrogen (BldV) [Mass/Vol]9 mg/dL8 - 23 mg/dL [facility] [employer] Phone: Urea nitrogen/Creatinine (Bld) [Mass ratio]10T[facility]caraw[facility] HospitalSasken Communication Technologies Phone: cBC Auto DifferentialOrdered By: Albert Ibrahim on [id number] Eos #0.23[facility] HospitalSasken Communication Technologies Phone: absolute Immature Granulocyte<0.03[facility] [employer] Phone: absolute Lymph #1.24[facility] HospitalSasken Communication Technologies Phone: absolute [place] #0.56[facility] [employer] Phone: basophils (Bld) [#/Vol]0.10 10*3/uLTuscarawas HospitalSasken Communication Technologies Phone: basophils/100 WBC (Bld)1 %0 - 2 %[employer] Phone: differential TypeNOT REPORTEDMerSasken Communication Technologies Phone: eosinophils/100 WBC (Bld)3 %1 - 4 %[employer] Phone: Hematocrit (Bld) [Volume fraction]42.7 %36.3 - 47.1 % [facility] HospitalMD Insider Phone: Hemoglobin.gastrointestinal spec 1 Ql (Stl)13.7 g/dL 11.9 - 15.1 g/dLTuscarawas HospitalSasken Communication Technologies Phone: Immature granulocytes/100 WBC (Bld)0 %0T[facility]carawas HospitalSasken Communication Technologies Phone: Interpretation and review of laboratory results AbnormalTuscarawas HospitalSasken Communication Technologies Phone: lymphocytes/100 WBC (Bld)16 %Low24 - 43 %[employer] Phone: MCH (RBC) [Entitic mass]29.7 pg25.2 - 33.5 pgTuscarawas HospitalSasken Communication Technologies Phone: MCHC (RBC) [Mass/Vol]32.1 g/dL28.4 - 34.8 g/dLTuscarawas HospitalSasken Communication Technologies Phone: MCV (RBC) [Entitic vol]92.4 fL82.6 - 102.9 fLTuscarawas HospitalSasken Communication Technologies Phone: Monocytes/100 WBC (Bld)7 %3 - 12 %[employer] Phone: [phone] Automated0.00.0 per 100 WBCHackHands Phone: [phone] distribution width (Bld) [Ratio]16.6 %High 11.8 - 14.4 %[employer] Phone: [phone] EstimateNOT REPORTEDHackHands Phone: [phone] mean volume (Bld) [Entitic vol]8.9 fL8.1 - 13.5 fLHackHands Phone: Platelets (Bld) [#/Vol]270 10*3/uLHackHands Phone: RBC (Bld) [#/Vol]4.62 10*6/uL3.95 - 5.11 m/uLHackHands Phone: RBC (Bld) [#/Vol]NOT REPORTEDHackHands Phone: Segmented neutrophils/100 WBC (Bld)73 %High36 - 65 % [employer] Phone: [phone] Absolute5.72[employer] Phone: WBC (Bld) [#/Vol]7.9 10*3/[employer] Phone: WBC (Bld) [#/Vol]NOT REPORTEDHackHands Phone: [phone] HospitalSasken Communication Technologies Phone: CT Head WO ContrastOrdered By: Albert Ibrahim on 96-49-4639Fg acute intracranial abnormality. Areas of minimally decreased attenuation density in the deep white matter and periventricular regions compatible with old micro ischemic changes.[employer] Phone: eXAMINATION: CT OF THE HEAD WITHOUT [...] in vessels at the base of the brain.[employer] Work Phone: e, [facility] Incoming Radiant Results From [employer] - 01/12/2021 1:32 PM EDT EXAMINATION: CT [...] regions compatible with old micro ischemic changes. [employer] Phone: [employer] Phone: laboratory - Chemistry and Chemistry - challenge Ordered By: Albert Ibrahim on 77-25-8516EFN/1.73 sq M.predicted MDRD (S/P/Bld) [Vol rate/Area][employer] Phone: comment on above:Average GFR for 60-69 years old: 85 mL/min/1.73sq m Chronic Kidney Disease: <60 mL/min/1.73sq m Kidney failure: <15 mL/min/1.73sq m eGFR calculated using average adult body mass. Additional eGFR calculator available at: http://www.[employer]/multiple_crcl_2012.htm Stage 1: Some kidney damage normal GFR Stage 2: Mild kidney damage GFR 60-89 Stage 3: Moderate kidney damage GFR 30-59 Stage 4: Severe kidney damage GFR 15-29 Stage 5: Severe kidney damage GFR <15 ESRD - chronic treatment by dialysis or transplant MagnesiumOrdered By: Albert Ibrahim on 25-43-1557Wooyxbncd [Mass/Vol]1.9 mg/dL1.6 - 2.6 mg/dLHackHands Phone: no Panel InformationOrdered By: Albert Ibrahim on 45-09-5632OuvojHackHands Phone: no acute findings.[employer] Phone: eXAMINATION: XRAY VIEWS OF THE RIGHT TIBIA AND FIBULA; THREE XRAY VIEWS OF THE RIGHT KNEE 01/12/2021 12:52 pm COMPARISON: None. HISTORY: ORDERING SYSTEM PROVIDED HISTORY: pain TECHNOLOGIST PROVIDED HISTORY: pain FINDINGS: Alignment anatomic. No acute fracture. There is generalized osteopenia. Mild tricompartmental degenerative change right knee. No significant joint effusion. There is atherosclerosis throughout the soft tissues.[employer] Phone: edi, Mhpn Incoming Radiant Results From [employer] - 01/12/2021 1:05 PM EDT EXAMINATION: XRAY [...] the soft tissues. IMPRESSION: No acute findings. [employer] Phone: [facility] HospitalSasken Communication Technologies Phone: TroponinOrdered By: Albert Ibrahim on 00-99-2216Hcucpprz InterpNOT REPORTEDTuscarawas HospitalSasken Communication Technologies Phone: Troponin TNOT REPORTED<0.03 ng/mLTuscarawas HospitalSasken Communication Technologies Phone: Troponin, High Ooybgpzrdhc85 ng/L0 - 14 ng/LMfostoria city hospital [employer] Phone: comment on above: High Sensitivity Troponin values cannot be compared with other Troponin methodologies. Patients with high levels of Biotin oral intake (i.e >5mg/day) may have falsely decreased Troponin levels. Samples collected within 8 hours of biotin intake may require additional information for diagnosis. [employer] Phone: XR CHEST PORTABLEOrdered By: Albert Ibrahim on 76-95-6390Zhvtooqgotautv suggesting COPD. No acute findings.[employer] Phone: eXAMINATION: ONE XRAY VIEW OF THE CHEST 01/12/2021 12:49 pm COMPARISON: December 28, 2020 HISTORY:ORDERING SYSTEM PROVIDED HISTORY: dizziness TECHNOLOGIST PROVIDED HISTORY: dizziness FINDINGS: Lungs are hyperinflated suggesting COPD. No focal consolidation, pneumothorax or pleural effusion. Cardiac and mediastinal silhouettes unremarkable. Osseous structures grossly intact.[employer] Phone: edi, Mhpn Incoming Radiant Results From [employer] - 01/12/2021 1:03 PM EDT EXAMINATION: ONE XRAY VIEW OF THE CHEST 01/12/2021 12:49 pm COMPARISON: December 28, 2020 HISTORY: ORDERING SYSTEM PROVIDED HISTORY: dizziness TECHNOLOGIST PROVIDED HISTORY: dizziness FINDINGS: Lungs are hyperinflated suggesting COPD. No focal consolidation, pneumothorax or pleural effusion. Cardiac and mediastinal silhouettes unremarkable. Osseous structures grossly intact. IMPRESSION: Hyperinflation suggesting COPD. No acute findings. [employer] Phone: [facility] HospitalSasken Communication Technologies Phone: XR PELVIS (1-2 VIEWS)Ordered By: Albert Ibrahim on 10-57-8539Vc acute findings.[employer] Phone: eXAMINATION: ONE XRAY VIEW OF THE PELVIS 01/12/2021 12:50 pm COMPARISON: March 21, 2020 HISTORY:ORDERING SYSTEM PROVIDED HISTORY: fall TECHNOLOGIST PROVIDED HISTORY: fall FINDINGS: AP image of the pelvis obtained. No displaced fractures. Alignment anatomic on this single view. Advanced right hip degenerative change. SI joints symmetric and patent. Surgical clips both inguinal regions.[employer] Phone: edi, Mh[facility] Incoming Radiant Results From [employer] - 01/12/2021 1:28 PM EDT EXAMINATION: ONE [...] both inguinal regions. IMPRESSION: No acute findings. [employer] Phone: [facility] HospitalSasken Communication Technologies Phone: XR THORACIC SPINE (2 VIEWS)Ordered By: Albert Ibrahim on [id number] acute findings.[employer] Phone: eXAMINATION: XRAY VIEWS OF THE THORACIC SPINE 01/12/2021 12:51 pm COMPARISON: February 11, 2012 HISTORY: ORDERING SYSTEM PROVIDED HISTORY: pain TECHNOLOGIST PROVIDED HISTORY: pain FINDINGS: Thoracic s pine alignment is anatomic. There is generalized osteopenia. No acute fracture. Vertebral body axial heights maintained. Mild endplate spondylosis throughout. There is calcification of the aorta.[employer] Phone: edi, Mhpn Incoming Radiant Results From [employer] - 01/12/2021 1:27 PM EDT EXAMINATION: XRAY VIEWS OF THE THORACIC SPINE 01/12/2021 12:51 pm COMPARISON: February 11, 2012 HISTORY: ORDERING SYSTEM PROVIDED HISTORY: pain TECHNOLOGIST PROVIDED HISTORY: pain FINDINGS: Thoracic spine alignment is anatomic. There is generalized osteopenia. No acute fracture. Vertebral body axial heights maintained. Mild endplate spondylosis throughout. There is calcification of the aorta. IMPRESSION: No acute findings. [employer] Phone: [employer] Phone: cBC auto differentialOrdered By: Mukesh Marley on [id number] Eos #0.30[employer] Phone: absolute Immature Granulocyte0.03[employer] Phone: absolute Lymph #1.39[facility]aw[facility] HospitalSasken Communication Technologies Phone: absolute [place] #0.58[facility] HospitalSasken Communication Technologies Phone: basophils (Bld) [#/Vol]0.06 10*3/uLHackHands Phone: basophils/100 WBC (Bld)1 %0 - 2 %[employer] Phone: differential TypeNOT REPORTEDHackHands Phone: eosinophils/100 WBC (Bld)3 %1 - 4 %[employer] Phone: Hematocrit (Bld) [Volume fraction]41.3 %36.3 - 47.1 % [employer] Phone: Hemoglobin.gastrointestinal spec 1 Ql (Stl)13.5 g/dL 11.9 - 15.1 g/dLTuscarawas HospitalSasken Communication Technologies Phone: Immature granulocytes/100 WBC (Bld)0 %0T[facility]carawas HospitalSasken Communication Technologies Phone: Interpretation and review of laboratory results AbnormalTuscarawas HospitalSasken Communication Technologies Phone: lymphocytes/100 WBC (Bld)16 %Low24 - 43 %[employer] Phone: MCH (RBC) [Entitic mass]29.3 pg25.2 - 33.5 pgTuscarawas HospitalSasken Communication Technologies Phone: MCHC (RBC) [Mass/Vol]32.7 g/dL28.4 - 34.8 g/dLTuscarawas HospitalSasken Communication Technologies Phone: MCV (RBC) [Entitic vol]89.6 fL82.6 - 102.9 fLTuscarawas HospitalSasken Communication Technologies Phone: Monocytes/100 WBC (Bld)7 %3 - 12 %[employer] Phone: NRBC Automated0.00.0 per 100 WBCTuscarawas HospitalSasken Communication Technologies Phone: platelet distribution width (Bld) [Ratio]17.8 %High 11.8 - 14.4 %[employer] Phone: platelet EstimateNOT REPORTEDTuscarawas HospitalSasken Communication Technologies Phone: Qlatelet mean volume (Bld) [Entitic vol]9.3 fL8.1 - 13.5 fLTuscarawas HospitalSasken Communication Technologies Phone: platelets (Bld) [#/Vol]256 10*3/uLTuscarawas HospitalSasken Communication Technologies Phone: RBC (Bld) [#/Vol]4.61 10*6/uL3.95 - 5.11 m/uLHackHands Phone: rBC (Bld) [#/Vol]NOT REPORTEDHackHands Phone: segmented neutrophils/100 WBC (Bld)73 %High36 - 65 % [employer] Phone: segs Absolute6.44[employer] Phone: WBC (Bld) [#/Vol]8.8 10*3/uLHackHands Phone: WBC (Bld) [#/Vol]NOT REPORTEDHackHands Phone: [employer] Phone: cT ABDOMEN PELVIS W IV CONTRAST Additional Contrast? NoneOrdered By: Mukesh Marley on 24-52-4833Ugjux is no acute finding on this contrast-enhanced [...] to an underlying severe right renal artery stenosis.[employer] Phone: eXAMINATION: CT OF THE ABDOMEN AND [...] to be chronically occluded as are the [place] iliac arteries. A left lower extremity arterial [...] small and large bowel is unchanged from prior.[employer] Phone: e, [facility] Incoming Radiant Results From [employer] - 12/04/2020 6:01 PM EDT EXAMINATION: CT [...] 23, 2019. HISTORY: ORDERING SYSTEM PROVIDED HISTORY: [facility] pain TECHNOLOGIST PROVIDED HISTORY: [facility] pain Decision Support Exception - unselect if [...] to be chronically occluded as are the [place] iliac arteries. A left lower extremity arterial [...] an underlying severe right renal artery stenosis. [employer] Phone: [employer] Phone: comprehensive Metabolic PanelOrdered By: Mukesh Marley on 31-07-6268Xqlwzbg [Mass/Vol]4 g/dL3.5 - 5.2 g/dLHackHands Phone: albumin/Globulin [Mass ratio]1.4 {ratio}[employer] Phone: aLP (Bld) [Catalytic activity/Vol]84 U/L35 - 104 U/L [employer] Phone: aLT [Catalytic activity/Vol]8 U/L5 - 33 U/LMOnaro Phone: anion gap [Moles/Vol]12 mmol/L9 - 17 mmol/LMthe university of [facility]ledo medical centery [employer] Work Phone: aST [Catalytic activity/Vol]10 U/L<32[facility] [employer] Phone: bilirubin [Mass/Vol]mg/dLLow0.3 - 1.2 mg/dLVeterans Health Administration [employer] Phone: calcium [Mass/Vol]9.6 mg/dL8.6 - 10.4 mg/dLVeterans Health Administration [employer] Phone: chloride [Moles/Vol]108 mmol/LHigh98 - 107 mmol/LMfostoria city hospital [employer] Work Phone: cO2 [Moles/Vol]21 mmol/L20 - 31 mmol/LMfostoria city hospital [employer] Work Phone: creatinine [Mass/Vol]0.92 mg/dLHigh0.50 - 0.90 mg/dL [facility] [employer] Phone: Free PSA/Total PSA [Mass fraction]6.9 g/dL6.4 - 8.3 g/dLVeterans Health Administration [employer] Phone: GFR >60>60 mL/minVeterans Health Administration [employer] Phone: GFR Non->60>60 mL/minVeterans Health Administration Program[employer] Work Phone: Glucose [Mass/Vol]105 mg/bXGuli39 - 99 mg/dLVeterans Health Administration [employer] Phone: Interpretation and review of laboratory results AbnormalVeterans Health Administration [employer] Phone: potassium [Moles/Vol]4.2 mmol/L3.7 - 5.3 mmol/LMthe university of [facility] centery [employer] Work Phone: sodium [Moles/Vol]141 mmol/L135 - 144 mmol/LMthe university of [facility]led[facility] medical centery [employer] Work Phone: Urea nitrogen (BldV) [Mass/Vol]18 mg/dL8 - 23 mg/dL [employer] Phone: Urea nitrogen/Creatinine (Bld) [Mass ratio]20T[facility]caraw[facility] HospitalSAJE Pharma Work Phone: [facility] HospitalSAJE Pharma Work Phone: laboratory - Chemistry and Chemistry - challenge Ordered By: Mukesh Marley on 77-69-9999ZPZ/1.73 sq M.predicted MDRD (S/P/Bld) [Vol rate/Area][employer] Phone: comment on above:Average GFR for 60-69 years old: 85 mL/min/1.73sq m Chronic Kidney Disease: <60 mL/min/1.73sq m Kidney failure: <15 mL/min/1.73sq m eGFR calculated using average adult body mass. Additional eGFR calculator available at: http://www.[employer] Biotechnology/multiple_crcl_[email or web address].htm Stage 1: Some kidney damage normal GFR Stage 2: Mild kidney damage GFR 60-89 Stage 3: Moderate kidney damage GFR 30-59 Stage 4: Severe kidney damage GFR 15-29 Stage 5: Severe kidney damage GFR <15 ESRD - chronic treatment by dialysis or transplant Microscopic UrinalysisOrdered By: Mukesh Marley on 12-04-2020-[employer] Phone: amorphous, UANOT REPORTEDNoneMeSuddenValues Work Phone: bacteria, UA3+AbnormalNonFulton County Health CenterSuddenValues Work Phone: casts UANOT REPORTED/LPFMercy Programeter Work Phone: crystals, UANOT REPORTEDNone /HPFMerSAJE Pharma Work Phone: epithelial Cells UA0 TO 2Mfostoria city hospital Programeter Work Phone: Interpretation and review of laboratory results AbnormalTuscarawas HospitalSAJE Pharma Work Phone: Mucus, UANOT REPORTEDNoneMemercy health lorain hospital Programeter Work Phone: Other Observations UANOT REPORTEDNOT REQ.[employer] Work Phone: rBC, UANoneMercy Health Work Phone: renal Epithelial, UANOT REPORTED0 /HPFMercy Health Work Phone: Trichomonas, UANOT REPORTEDNoneMercy Health Work Phone: WBC, UA0 TO 2[facility] Work Phone: Yeast, UANOT REPORTEDNoneMercy Health Work Phone: [facility] Work Phone: Urinalysis Reflex to CultureOrdered By: Mukesh Marley on [id number] UrineNegativeNEGATIVEMercy Health Work Phone: color, UAYELLOWYELLOWMercy Health Work Phone: Glucose, UrNegativeNEGATIVEMercy Health Work Phone: Interpretation and review of laboratory results AbnormalMercy Health Work Phone: Ketones Ql (U)NegativeNEGATIVEMercy Health Work Phone: leukocyte esterase Test strip Ql (U)NegativeNEGATIVE [facility] Work Phone: Nitrite, UrinePositiveAbnormalNEGATIVEMercy Health Work Phone: pH, UA6.5[facility] Work Phone: protein, UANegativeNEGATIVEMercy Health Work Phone: specific [place], UA1.015[facility] Work Phone: Turbidity UACLEARCLEARMercy Health Work Phone: Urinalysis CommentsNOT REPORTEDMercy Health Work Phone: Urine HgbNegativeNEGATIVEMercy Health Work Phone: Urobilinogen, UrineNormalNormalMercy Health Work Phone: [facility] Programeter Work Phone: Otheron [phone] convincing evidence for acute fracture or malalignment of the thoracolumbar spine. Multilevel degenerative disc disease of the thoracolumbar spine. Disc extrusion with superior migration of the L2-L3 disc. Multiple additional chronic findings as described above.[facility] HospitalCARLOSEXAMINATION: CT OF THE THORACIC SPINE WITHOUT CONTRAST; [...] migration of the L2-L3 disc resulting in epbf-em-xoljttcq central canal narrowing. SOFT TISSUES: There is subtle reticulonodular opacities and ground- glass opacities within the visualized lung parenchyma. No pleural effusion or pneumothorax. Bilateral adrenal adenomas. Status post aortoiliac bypass grafting.[facility] HospitalAudelia Mhpn Incoming Radiant Results From [employer] - 04/05/2020 2:59 PM EST EXAMINATION: CT [...] migration of the L2-L3 disc resulting in ieet-xb-dfexcnop central canal narrowing. SOFT TISSUES: There is [...] Multiple additional chronic findings as described above. [facility] HospitalSuddenValuesCopper Springs Hospital 96-08-3782gHAW Coag (Bld) [Time]24.3 [facility] on above: IV Heparin Therapy Range: 62.0-94.0 Brain Natriuretic Peptideon 47-77-5357Dmckpftkngi peptide B (Bld) [Mass/Vol]Pro- BNP Reference Range:Digital CaddiesKalamazoo Psychiatric Hospital on above: Rule Out: <300 Monahan Zone: Age <50 300-450 Age 50-75 300-900 Age >75 300-1800 Usually represents mild to moderate HF but other cardiopulmonary causes cannot be ruled out. Rule In: Age <50 >450 Age 50-75 >900 Age >75 >1800 Natriuretic peptide B (Bld) [Mass/Vol]283 pg/mL<300[facility]- [place], KYComment on above:Pro-BNP results cannot be compared to BNP results.CBC Auto Differential on 30-65-7013Ehtywqnyv (Bld) [#/Vol]0.10 10*3/[facility], [place] Basophils/100 WBC (Bld)1 %0 - 2 %[facility], NVDifferential TypeNOT REPORTEDKeenan Private Hospital, CARLOSEosinophils (Bld) [#/Vol]0.82 10*3/uLAdena Health System, KYEosinophils/100 WBC (Bld)5 %High1 - 4 %[facility], [place] Erythrocyte distribution width (RBC) [Ratio]15.0 %High11.8 - 14.4 %[facility], NVHematocrit (Bld) [Volume fraction]42.5 %36.3 - 47.1 %[facility], [place] Hemoglobin (Bld) [Mass/Vol]13.6 g/dL11.9 - 15.1 g/dLKeenan Private Hospital, NVImmature granulocytes (Bld) [#/Vol]1 %Qczz9QtbpmKeenan Private Hospital, NVImmature granulocytes (Bld) [#/Vol]0.08 10*3/[facility], NVInterpretation and review of laboratory resultsAbnormalKeenan Private Hospital, NVLymphocytes (Bld) [#/Vol]2.06 10*3/[facility], KYLymphocytes/100 WBC (Bld)12 %Low24 - 43 %[facility], NVMCH (RBC) [Entitic mass]28.6 pg25.2 - 33.5 pgKeenan Private Hospital, [place] MCHC (RBC) [Mass/Vol]32.0 g/dL28.4 - 34.8 g/dLKeenan Private Hospital, NVMCV (RBC) [Entitic vol]89.5 fL82.6 - 102.9 fLKeenan Private Hospital, NVMonocytes (Bld) [#/Vol] 0.75 10*3/[facility], KYMonocytes/100 WBC (Bld)4 %3 - 12 %[facility]- [place], KYPlatelet mean volume (Bld) [Entitic vol]9.8 fL8.1 - 13.5 fLMercy Health- [place], KYPlatelets (Bld) [#/Vol]NOT REPORTEDMercy Health- [place], KYPlatelets (Bld) [#/Vol]224 10*3/uLMercy Health- [place], KYRBC (Bld) [#/Vol]4.75 10*6/uL3.95 - 5.11 m/uLMercy Health- [place], KYRBC morphology finding Nom (Bld)NOT REPORTEDTuscarawas Hospitalcy Health- [place], KYSegmented neutrophils/100 WBC (Bld)78 %High36 - 65 %[facility]- [place], KYSegs Dxcxmprm29.60HighMercy Health- [place], KYWBC (Bld) [#/Vol]17.4 10*3/uL HighMer Health- [place], KYWBC (Bld) [#/Vol]0.0 10*3/uL0.0 per 100 WBCTuscarawas Hospitalcy Health- [place], KYWBC MorphologyNOT REPORTEDMer Health- [place], KYComprehensive Metabolic Panel w/ Reflex to MGon 21-88-8073Xiakswn [Mass/Vol]4 g/dL3.5 - 5.2 g/dLTuscarawas Hospitalcy Health- [place], KYAlbumin/Globulin [Mass ratio]1.5 {ratio}[facility]y [facility]- [place], KYALP [Catalytic activity/Vol]74 U/L35 - 104 U/LMthe university of [facility]ledo medical centery Health- [place], KYALT [Catalytic activity/Vol]8 U/L5 - 33 U/LMercy Health- [place], KYAnion gap [Moles/Vol]9 mmol/L9 - 17 mmol/LMercy Health- [place], KYAST [Catalytic activity/Vol]11 U/L<32[facility]- [place], KYBilirubin Ql (U)0.24 mg/dLLow0.3 - 1.2 mg/dLMercy Health- [place], KYBun/Cre Aftpu41Bhlmr Health- [place], KYCalcium [Mass/Vol]8.9 mg/dL8.6 - 10.4 mg/dLTuscarawas Hospitalcy Health- [place], KYChloride [Moles/Vol]99 mmol/L98 - 107 mmol/LMercy Health- [place], [place] CO2 [Moles/Vol]28 mmol/L20 - 31 mmol/LMMount Carmel Health System, KYCreatinine [Mass/Vol] 1.27 mg/dLHigh0.5 - 0.9 mg/dLKeenan Private Hospital, KYGFR Exdjiccy90 mL/min Low>60[facility], KYGFR Non- Tbixcuwj40 mL/minLow>60[facility], KYGlucose [Mass/Vol]127 mg/nWJfdj40 - 99 mg/dLKeenan Private Hospital, KYPotassium [Moles/Vol]4.0 mmol/L3.7 - 5.3 mmol/LMMount Carmel Health System, KYProtein [Mass/Vol]6.7 g/dL6.4 - 8.3 g/dLKeenan Private Hospital, KYSodium [Moles/Vol]136 mmol/L135 - 144 mmol/LMMount Carmel Health System, KYUrea nitrogen [Mass/Vol]25 mg/dLHigh8 - 23 mg/dLKeenan Private Hospital, KYMetabolic Panelon 95-67-7156MNV/1.73 sq M predicted among non- blacks MDRD (S/P/Bld) [Vol rate/Area][place], KYComment on above: Average GFR for 60-69 years old: 85 mL/min/1.73sq m Chronic Kidney Disease: <60 mL/min/1.73sq m Kidney failure: <15 mL/min/1.73sq m eGFR calculated using average adult body mass. Additional eGFR calculator available at: http://www.[employer].Pigit/multiple_crcl_2011.htm Stage 1: Some kidney damage normal GFR Stage 2: Mild kidney damage GFR 60-89 Stage 3: Moderate kidney damage GFR 30-59 Stage 4: Severe kidney damage GFR 15-29 Stage 5: Severe kidney damage GFR <15 ESRD - chronic treatment by dialysis or transplant Otheron 56-93-8143Wapafmmwcemfbl and review of laboratory resultsAbnormalHallett, KYProtime-INRon 58-85-5511QOV Coag (PPP) [Relative time]0.9 {INR} [place], KYComment on above: Non-therapeutic Range: INR = 0.9-1.2 Therapeutic Range: Moderate Anticoagulant Intensity: INR = 2.0-3.0 High Anticoagulant Intensity: INR = 2.5-3.5 PT Coag (PPP) [Time]12.1 sMMount Carmel Health System, CARLOSSedimentation Rateon 31-52-1508Gxz Rate8 mm0 - 20 mmKeenan Private Hospital, CARLOSTroponinon 56-59-2262Qbispxrhsjfhov and review of laboratory resultsAbnormalKeenan Private Hospital, Citlalyoponin I.cardiac [Mass/Vol]NOT REPORTEDKeenan Private Hospital, Citlalyoponin T.cardiac [Mass/Vol]NOT REPORTED<0.03 ng/mLKeenan Private Hospital, Citlalyoponin, High Tmvasegfcdz73 ng/LHigh0 - 14 ng/LMMount Carmel Health System, CARLOSComment on above: High Sensitivity Troponin values cannot be compared with other Troponin methodologies. Patients with high levels of Biotin oral intake (i.e >5mg/day) may have falsely decreased Troponin levels. Samples collected within 8 hours of biotin intake may require additional information for diagnosis. Troponin I.cardiac [Mass/Vol]NOT REPORTEDKeenan Private Hospital, Adriananin T.cardiac [Mass/Vol]NOT REPORTED<0.03 ng/mLKeenan Private Hospital, Citlalyoponin, High Sensitivity 18 ng/LHigh0 - 14 ng/LMMount Carmel Health System, CARLOSComment on above: High Sensitivity Troponin values cannot be compared with other Troponin methodologies. Patients with high levels of Biotin oral intake (i.e >5mg/day) may have falsely decreased Troponin levels. Samples collected within 8 hours of biotin intake may require additional information for diagnosis. XR CHEST (2 VW)on 95-54-6980Nx focal consolidation. Mild increased interstitial opacities which are unchanged and could be related to an atypical infection versus chronic changes.[facility], [place], [place] Incoming Radiant Results From [employer] - 03/21/2020 3:01 PM EST EXAMINATION: 2 [...] to an atypical infection versus chronic changes. [place], KYEXAMINATION: 2 XRAY VIEWS OF THE CHEST 03/21/2020 2:29 pm COMPARISON: 03/17/2020 HISTORY: ORDERING SYSTEM PROVIDED HISTORY: palpitations TECHNOLOGIST PROVIDED HISTORY: Palpitations FINDINGS: No focalconsolidation. Cardiomegaly. Mild prominence of the main pulmonary artery which can be seen with pulmonary hypertension. No pulmonary edema. Mild interstitial prominence is unchanged.Digital CaddiesMISSOURI DELTA [facility], KYXR HIP LEFT (2-3 VIEWS)on 70-20-0604Kyr, [facility] Incoming Radiant Results From [employer] - 03/21/2020 2:51 PM EST EXAMINATION: TWO [...] upper thigh. IMPRESSION: No acute osseous abnormality. [facility] HospitalInside Secure [facility], KYEXAMINATION: TWO XRAY VIEWS OF THE LEFT [...] vascular surgery noted in the left upper thigh.[facility], KYNo acute osseous abnormality.[facility] ProgrameterMISSOURI DELTA [facility], KYCBCon 77-90-4412Nzyuvkjmyri distribution width (RBC) [Ratio]14.9 %High11.8 - 14.4 % [facility], KYHematocrit (Bld) [Volume fraction]44.4 %36.3 - 47.1 %[facility] ProgrameterMISSOURI DELTA [facility], KYHemoglobin (Bld) [Mass/Vol]14.0 g/dL11.9 - 15.1 g/dLMerMultiCare Tacoma [facility] Hospital- [place], KYInterpretation and review of laboratory resultsAbnormalAdena Fayette Medical Center- [place], KYMCH (RBC) [Entitic mass]27.3 pg25.2 - 33.5 pgAdena Fayette Medical Center- [place], KYMCHC (RBC) [Mass/Vol]31.5 g/dL28.4 - 34.8 g/dLAdena Fayette Medical Center- [place], KYMCV (RBC) [Entitic vol] 86.5 fL82.6 - 102.9 fLAdena Fayette Medical Center- [place], KYPlatelet mean volume (Bld) [Entitic vol]9.6 fL8.1 - 13.5 fLAdena Fayette Medical Center- [place], KYPlatelets (Bld) [#/Vol]219 10*3/uL [facility]- [place], KYRBC (Bld) [#/Vol]5.13 10*6/uLHigh3.95 - 5.11 m/uLAdena Fayette Medical Center- [place], KYWBC (Bld) [#/Vol]0.0 10*3/uL0.0 per 100 WBCAdena Fayette Medical Center- [place], KYWBC (Bld) [#/Vol]14.4 10*3/uLHighAdena Fayette Medical Center- [place], KYComprehensive Metabolic Panel w/ Reflex to MGon 35-74-7779Gkwytvq [Mass/Vol]3.5 g/dL3.5 - 5.2 g/dLAdena Fayette Medical Center- [place], KYAlbumin/Globulin [Mass ratio]1.4 {ratio}[facility]- [place], KYALP [Catalytic activity/Vol]72 U/L35 - 104 U/LMBerger Hospital- [place], KYALT [Catalytic activity/Vol]7 U/L5 - 33 U/LMfostoria city hospital Health- [place], KYAnion gap [Moles/Vol]10 mmol/L9 - 17 mmol/LMfostoria city hospital Health- [place], KYAST [Catalytic activity/Vol]11 U/L<32[facility]- [place], KYBilirubin Ql (U)0.19 mg/dLLow0.3 - 1.2 mg/dLAdena Fayette Medical Center- [place], [place] Bun/Cre RatioNOT REPORTEDAdena Fayette Medical Center- [place], KYCalcium [Mass/Vol]8.6 mg/dL8.6 - 10.4 mg/dLAdena Fayette Medical Center- [place], KYChloride [Moles/Vol]103 mmol/L98 - 107 mmol/[facility], KYCO2 [Moles/Vol]24 mmol/L20 - 31 mmol/[facility], [place] Creatinine [Mass/Vol]1.04 mg/dLHigh0.5 - 0.9 mg/dLKeenan Private Hospital, KYGFR >60>60 mL/minKeenan Private Hospital, KYGFR Non- Tbvsgbsy63 mL/minLow>60[facility], KYGFR/1.73 sq M predicted among non-blacks MDRD (S/P/Bld) [Vol rate/Area]NOT REPORTEDKeenan Private Hospital, KYGFR/1.73 sq M predicted among non-blacks MDRD (S/P/Bld) [Vol rate/Area][facility], KYComment on above:Average GFR for 60-69 years old: 85 mL/min/1.73sq m Chronic Kidney Disease: <60 mL/min/1.73sq m Kidney failure: <15 mL/min/1.73sq m eGFR calculated using average adult body mass. Additional eGFR calculator available at: http://www.[employer]/multiple_crcl_2012.htm Glucose [Mass/Vol]101 mg/nYYmsf20 - 99 mg/dLKeenan Private Hospital, KYInterpretation and review of laboratory resultsAbnoWilson Memorial Hospital, KYPotassium [Moles/Vol]4.3 mmol/L3.7 - 5.3 mmol/[facility], KYProtein [Mass/Vol]6.0 g/dLLow6.4 - 8.3 g/dLKeenan Private Hospital, KYSodium [Moles/Vol]137 mmol/L135 - 144 mmol/[facility], KYUrea nitrogen [Mass/Vol]20 mg/dL8 - 23 mg/dLKeenan Private Hospital, KYPOC Glucose Fingerstickon 20-82-0536Huoibay [Mass/Vol]102 mg/dL65 - 105 mg/dLKeenan Private Hospital, KYGlucose [Mass/Vol]107 mg/wIFkmc62 - 105 mg/dL [facility], KYInterpretation and review of laboratory resultsAbnoWilson Memorial Hospital, KYBasi Metabolic Panel w/ Reflex to MGon 97-09-0679Szmxl gap [Moles/Vol]12 mmol/L9 - 17 mmol/LMthe university of [facility]ledo medical centery Health- [place], KYBun/Cre Ifehi25Mhxuv Health- [place], KYCalcium [Mass/Vol]9.5 mg/dL8.6 - 10.4 mg/dLVeterans Health Administration Health- [place], [place] Chloride [Moles/Vol]103 mmol/L98 - 107 mmol/LMthe university of [facility]led[facility] medical centery Health- [place], KYCO2 [Moles/Vol] 24 mmol/L20 - 31 mmol/LMthe university of [facility]led[facility] medical centery Health- [place], KYCreatinine [Mass/Vol]1.12 mg/dLHigh 0.5 - 0.9 mg/dLAdena Fayette Medical Center- [place], KYGFR >60>60 mL/minVeterans Health Administration Health- [place], KYGFR Non- Wbwbkxsa27 mL/minLow>60[facility]- [place], KYGlucose [Mass/Vol]95 mg/dL70 - 99 mg/dLAdena Fayette Medical Center- [place], KYInterpretation and review of laboratory resultsAbnormalAdena [facility] Center- [place], KYPotassium [Moles/Vol]5.1 mmol/L 3.7 - 5.3 mmol/LMfostoria city hospital Health- [place], KYSodium [Moles/Vol]139 mmol/L135 - 144 mmol/L [facility]- [place], KYUrea nitrogen [Mass/Vol]17 mg/dL8 - 23 mg/dLAdena Fayette Medical Center- [place], KYCBCon 31-84-9662Caqxajkcsty distribution width (RBC) [Ratio]15.1 %High11.8 - 14.4 %[facility]- [place], KYHematocrit (Bld) [Volume fraction]48.7 %High36.3 - 47.1 %[facility]- [place], KYHemoglobin (Bld) [Mass/Vol]15.3 g/eLUuno74.9 - 15.1 g/dLAdena Fayette Medical Center- [place], KYInterpretation and review of laboratory resultsAbnormal [facility]- [place], KYMCH (RBC) [Entitic mass]28.1 pg25.2 - 33.5 pgAdena Fayette Medical Center- [place], KYMCHC (RBC) [Mass/Vol]31.4 g/dL28.4 - 34.8 g/dLKeenan Private Hospital, NVMCV (RBC) [Entitic vol]89.4 fL82.6 - 102.9 fLKeenan Private Hospital, NVPlatelet mean volume (Bld) [Entitic vol]9.4 fL8.1 - 13.5 fLKeenan Private Hospital, NVPlatelets (Bld) [#/Vol]282 10*3/uLKeenan Private Hospital, KYRBC (Bld) [#/Vol]5.45 10*6/uLHigh3.95 - 5.11 m/[facility], KYWBC (Bld) [#/Vol]11.1 10*3/uLKeenan Private Hospital, [place] WBC (Bld) [#/Vol]0.0 10*3/uL0.0 per 100 WBCKeenan Private Hospital, NVDiagnostic Cardiac Lease Picker Procedureon 03-20-7321Xnr, Mhpn Incoming Cardio Results From [facility]/ - 03/18/2020 2:16 PM EST Cardiac Interventional Report Demographics Patient SHER Phillips Date of Study 03/18/2020 Name Date of 1960 Gender Female Age 59 year(s) Race Room [id number]^MARTINEZ^HEMINDERMEET Height: 61 inch, 154.94 Number cm Corporate [id number] Weight: 170 pounds, 77.1 ID # kg Patient [id number] BSA: 1.76 m^2 BMI: 32.12 Acct # kg/m^2 MR # [id number] Performing Ema Miller Physician Referring # Physician [...] complication Indications: - Unstable angina - Previous AK - Previous stent placement - Coronary lesion [...] I.A. 2000 units. - Heparin I.V. bolus 12919 units. - Nitroglycerin I.C. 200 mcg. - Plavix P.O. 600 mg. Contrast Material: - Optiray 60631 ml Fluoroscopy Time: Diagnostic: 5:24 minutes. Total: [...] tobacco use, previous femoral procedure and prior AK. Admission Data Admission Date: 03/18/2020 Admission Status: Outpatient -The patient's anginal syndrome was assessed as CCS III according to the Ghanaian clinical classification. Hemodynamics Condition: Baseline Room Air Estimated: 183.40Heart Rate: 95 bpm Pressure +-----+ + !Site !Pressure ! +-----+ + !AO !173/173 (116) ! +-----+ + !AO !170/65 (122) ! +-----+ + Shunts Oxygen Values O2 Zsknoidl134.08O2 Gyutgurwwkj592.4 [facility] [employer]- [place], KYCardiac Interventional Report Demographics Patient SHER Phillips Date of Study 03/18/2020 Name Date of 1960 Gender Female Age 59 year(s) Race Room [id number]^MARTINEZ^HEMINDERMEETHeight: 61 inch, 154.94 Number cm Corporate [id number] Weight: 170 pounds, 77.1 ID # kg Patient [id number] BSA: 1.76 m^2 BMI: 32.12 Acct # kg/m^2 MR # [id number] Ema Pineda Physician Referring # Physician Assisting [...] complication Indications: - Unstable angina - Previous AK - Previous stent placement - Coronary lesion [...] Heparin I.A. 2000 units. -Heparin I.V. bolus 80362 units. - Nitroglycerin I.C. 200 mcg. - Plavix P.O. 600 mg. Contrast Material: - Optiray 83952 ml Fluoroscopy Time: Diagnostic: 5:24 minutes. Total: [...] tobacco use, previous femoral procedure and prior AK. Admission Data Admission Date: 03/18/2020 Admission Status: Outpatient -The patient's anginal syndrome was assessed as CCS III according to the Ghanaian clinical classification. Hemodynamics Condition: Baseline Room Air Estimated: 183.40Heart Rate: 95 bpm Pressure +-----+ + !Site !Pressure ! +-----+ + !AO !173/173 (116) ! +-----+ + !AO !170/65 (122) ! +-----+ + Shunts Oxygen Values O2 Pwvcslyi127.08O2 Xuwwgzacrru519.4[facility] EmSense Metabolic Panelon 21-47-9524YXC/1.73 sq M predicted among non-blacks MDRD (S/P/Bld) [Vol rate/Area][facility] on above:Average GFR for 60-69 years old: 85 mL/min/1.73sq m Chronic Kidney Disease: <60 mL/min/1.73sq m Kidney failure: <15 mL/min/1.73sq m eGFR calculated using average adult body mass. Additional eGFR calculator available at: http://www.[employer]/multiple_crcl_2012.htm Stage 1: Some kidney damage normal GFR Stage 2: Mild kidney damage GFR 60-89 Stage 3: Moderate kidney damage GFR 30-59 Stage 4: Severe kidney damage GFR 15-29 Stage 5: Severe kidney damage GFR <15 ESRD - chronic treatment by dialysis or transplant POC Glucose Fingerstickon 90-29-9796Rqyxmxx [Mass/Vol]106 mg/eXMmff92 - 105 mg/dLKeenan Private Hospital, KYInterpretation and review of laboratory resultsAbnormal [place], KYGlucose [Mass/Vol]216 mg/zVDdyf50 - 105 mg/dLKeenan Private Hospital, NVInterpretation and review of laboratory resultsAbnormCleveland Clinic Marymount Hospital, NVTroponinon 21-84-2375Xkxsuess I.cardiac [Mass/Vol]NOT REPORTEDHal[place], KYTroponin T.cardiac [Mass/Vol]NOT REPORTED<0.03 ng/mLKeenan Private Hospital, [place] Troponin, High Fkuboloeibe26 ng/L0 - 14 ng/LMLakes Regional Healthcare on above: High Sensitivity Troponin values cannot be compared with other Troponin methodologies. Patients with high levels of Biotin oral intake (i.e >5mg/day) may have falsely decreased Troponin levels. Samples collected within 8 hours of biotin intake may require additional information for diagnosis. Brain Natriuretic Peptideon 70-87-5504Jbuqcgkyfcs peptide B (Bld) [Mass/Vol]1060 pg/mLHigh<300[facility] on above:Pro-BNP results cannot be compared to BNP results.Natriuretic peptide B (Bld) [Mass/Vol]Pro-BNP Reference Range:[facility] on above: Rule Out: <300 Monahan Zone: Age <50 300-450 Age 50-75 300-900 Age >75 300-1800 Usually represents mild to moderate HF but other cardiopulmonary causes cannot be ruled out. Rule In: Age <50 >450 Age 50-75 >900 Age >75 >1800 CBCon 16-93-2173Xazhcftjpmx distribution width (RBC) [Ratio]14.8 %High11.8 - 14.4 %[facility], NVHematocrit (Bld) [Volume fraction]43.9 %36.3 - 47.1 % [facility], NVHemoglobin (Bld) [Mass/Vol]13.9 g/dL11.9 - 15.1 g/dLKeenan Private Hospital, NVInterpretation and review of laboratory resultsAbnormalKeenan Private Hospital, NVMCH (RBC) [Entitic mass]28.4 pg25.2 - 33.5 pgKeenan Private Hospital, [place] MCHC (RBC) [Mass/Vol]31.7 g/dL28.4 - 34.8 g/dLKeenan Private Hospital, NVMCV (RBC) [Entitic vol]89.8 fL82.6 - 102.9 fLKeenan Private Hospital, NVPlatelet mean volume (Bld) [Entitic vol]9.5 fL8.1 - 13.5 fLKeenan Private Hospital, NVPlatelets (Bld) [#/Vol]300 10*3/uLKeenan Private Hospital, KYRBC (Bld) [#/Vol]4.89 10*6/uL3.95 - 5.11 m/[facility], NVWBC (Bld) [#/Vol]0.0 10*3/uL0.0 per 100 WBCKeenan Private Hospital, NVWBC (Bld) [#/Vol]11.6 10*3/uLHighKeenan Private Hospital, NVCardiac Catheterizationon 33-40-7348Icdfiqw Diagnostic Report Demographics Patient SHER Phillips Date of Study 03/17/2020 Name Dateof 1960 Gender Female Age 59 year(s) Race Room [id number]^SHARRI Height: 61 inch, 154.94 cm Number Corporate [id number] Weight: 178 pounds, 80.7 kg ID # Patient [id number] BSA: 1.8 m^2 BMI: 33.62 Acct # kg/m^2 MR # [id number] Performing Physician Zach Stephens Referring Physician # [...] Right coronary angiography. Contrast Material: - Isovue 02953 ml Fluoroscopy Time: Diagnostic: 2:01 minutes. Total: [...] assessed as CCS IV according to the Ghanaian clinical classification. Hemodynamics Condition: Baseline Room Air [...] + +---------+---------+---------+ +---------+ + Shunts Oxygen ValuesO2 Qegacqpa888.04O2 Myhehnofaqm339.12[facility]- [place], [place] Lonnie, Mhpn Incoming Cardio Results From [facility]/[place] - 03/17/2020 6:01 PM EST Cardiac Diagnostic Report Demographics Patient SHER Phillips Date of Study 03/17/2020 Name Date of 1960 Gender Female Age 59 year(s) Race Room [id number]^SHARRI Height: 61 inch, 154.94 cm Number Corporate [id number] Weight: 178 pounds, 80.7 kg ID # Patient [id number] BSA: 1.8 m^2 BMI: 33.62 Acct # kg/m^2 MR # [id number] Performing Physician Zach Stephens Referring Physician # [...] Right coronary angiography. Contrast Material: - Isovue 68333 ml Fluoroscopy Time: Diagnostic: 2:01 minutes. Total: [...] assessed as CCS IV according to the Ghanaian clinical classification. Hemodynamics Condition: Baseline Room Air [...] +---------+---------+---------+ +---------+ + Shunts Oxygen Values O2 Uptosvmw685.04O2 Jclaalviwzu923.12 [facility]- [place], KYComprehensive Metabolic Panelon 11-16-1385Cywoxkb [Mass/Vol] 3.8 g/dL3.5 - 5.2 g/dLMercy Health- [place], KYAlbumin/Globulin [Mass ratio]1.5 {ratio}[facility]- [place], KYALP [Catalytic activity/Vol]69 U/L35 - 104 U/LMercy Health- [place], KYALT [Catalytic activity/Vol]7 U/L5 - 33 U/LMercy Health- [place], [place] Anion gap [Moles/Vol]6 mmol/LLow9 - 17 mmol/LMercy Health- [place], KYAST [Catalytic activity/Vol]11 U/L<32[facility]- [place], KYBilirubin Ql (U)0.19 mg/dLLow0.3 - 1.2 mg/dLMercy Health- [place], KYBun/Cre Pongk15Jguod Health- [place], KYCalcium [Mass/Vol] 8.9 mg/dL8.6 - 10.4 mg/dLMercy Health- [place], KYChloride [Moles/Vol]98 mmol/L98 - 107 mmol/LMercy Health- [place], KYCO2 [Moles/Vol]28 mmol/L20 - 31 mmol/LMercy Health- [place], [place]Creatinine [Mass/Vol]1.4 mg/dLHigh0.5 - 0.9 mg/dLMercy Health- [place], KYGFR Wdjryzvk42 mL/minLow>60[facility]- [place], KYGFR Non- Afktihhc24 mL/minLow>60[facility]- [place], KYGlucose [Mass/Vol]174 mg/rGNnug46 - 99 mg/dLMercy Health- [place], KYPotassium [Moles/Vol]4.1 mmol/L3.7 - 5.3 mmol/LMercy Health- [place], KYProtein [Mass/Vol]6.4 g/dL6.4 - 8.3 g/dLMercy Health- [place], [place] Sodium [Moles/Vol]132 mmol/HMsi785 - 144 mmol/LMercy Health- [place], KYUrea nitrogen [Mass/Vol]22 mg/dL8 - 23 mg/dLHallett, KYMetabolic Panelon 03-17-2020 GFR/1.73 sq M predicted among non-blacks MDRD (S/P/Bld) [Vol rate/Area][facility] NVComment on above:Stage 1: Some kidney damage normal [...] body mass. Additional eGFR calculator available at: http://www.[employer]/multiple_crcl_2012.htm Otheron [id number] and review of laboratory resultsAbnormalKeenan Private HospitalCARLOSAronoponifahad [id number] I.cardiac [Mass/Vol]NOT REPORTED [facility] HospitalCARLOSRenen T.cardiac [Mass/Vol]NOT REPORTED<0.03 ng/mLKeenan Private HospitalCARLOSMaryam, High Sensitivity9 ng/L0 - 14 ng/LMWilson [facility] CARLOS Comment on above: High Sensitivity Troponin values cannot be compared with other Troponin methodologies. Patients with high levels of Biotin oral intake (i.e >5mg/day) may have falsely decreased Troponin levels. Samples collected within 8 hours of biotin intake may require additional information for diagnosis. Troponin I.cardiac [Mass/Vol]NOT REPORTEDKeenan Private HospitalCARLOSTahirnin T.cardiac [Mass/Vol]NOT REPORTED<0.03 ng/mLKeenan Private Hospital CARLOSTahirnin, High Sensitivity 12 ng/L0 - 14 ng/LMMuse, KYComment on above: High Sensitivity Troponin values cannot be compared with other Troponin methodologies. Patients with high levels of Biotin oral intake (i.e >5mg/day) may have falsely decreased Troponin levels. Samples collected within 8 hours of biotin intake may require additional information for diagnosis. XR CHEST PORTABLEon [id number], Mhpn Incoming Radiant Results From [employer]/Pacs - 03/17/2020 1:33 PM EST EXAMINATION: ONE [...] previous infectious/inflammatory process. Calcific atherosclerotic disease aorta. [facility], KYEXAMINATION: ONE XRAY VIEW OF THE CHEST [...] is seen. No acute osseous abnormality is identified.[facility], KYNo definite acute pulmonary disease. Chronic appearing coarse interstitial densities predominate perihilar regions and lung bases, typical of sequela from smoking or other previous infectious/inflammatory process. Calcific atherosclerotic disease aorta.[facility] ProgrameterMISSOU[facility], KYBasic Metabolic Panelon [id number] gap [Moles/Vol]9 mmol/L9 - 17 mmol/LMMount Carmel Health System, KYBun/Cre Oapjv56JrjpaKeenan Private Hospital, KYCalcium [Mass/Vol]9.1 mg/dL8.6 - 10.4 mg/dLKeenan Private Hospital, KYChloride [Moles/Vol]97 mmol/LLow98 - 107 mmol/LMMount Carmel Health System, KYCO2 [Moles/Vol]25 mmol/L20 - 31 mmol/[facility] [place], KYCreatinine [Mass/Vol]0.96 mg/dLHigh0.5 - 0.9 mg/dL [facility], KYGFR >60>60 mL/minKeenan Private Hospital, KYGFR Non- Kbxwkici84 mL/minLow>60[facility], KYGlucose [Mass/Vol]82 mg/dL70 - 99 mg/dLKeenan Private Hospital, KYInterpretation and review of laboratory resultsAbnoWilson Memorial Hospital, KYPotassium [Moles/Vol]4.4 mmol/L3.7 - 5.3 mmol/LMSelect [facility] [place], KYSodium [Moles/Vol]131 mmol/SWto721 - 144 mmol/[facility], KYUrea nitrogen [Mass/Vol]12 mg/dL8 - 23 mg/dLKeenan Private Hospital, [place] Brain Natriuretic Peptideon [id number] and review of laboratory resultsAbLouis Stokes [facility], KYNatriuretic peptide B (Bld) [Mass/Vol]1385 pg/mLHigh<300[facility], KYComment on above:Pro-BNP results cannot be compared to BNP results.Natriuretic peptide B (Bld) [Mass/Vol]Pro-BNP Reference Range:[facility], NVComment on above: Rule Out: <300 Monahan Zone: Age <50 300-450 Age 50-75 300-900 Age >75 300-1800 Usually represents mild to moderate HF but other cardiopulmonary causes cannot be ruled out. Rule In: Age <50 >450 Age 50-75 >900 Age >75 >1800 CBC Auto Differentialon [id number] (Bld) [#/Vol]0.09 10*3/[facility], KYBasophils/100 WBC (Bld)1 %0 - 2 %[facility], KYDifferential TypeNOT REPORTEDKe[facility]an Private Hospital, KYEosinophils (Bld) [#/Vol]0.41 10*3/[facility]- [place], KYEosinophils/100 WBC (Bld)5 %High1 - 4 %[facility], [place] Erythrocyte distribution width (RBC) [Ratio]14.8 %High11.8 - 14.4 %[facility], CARLOSHematocrit (Bld) [Volume fraction]42.3 %36.3 - 47.1 %[facility], [place] Hemoglobin (Bld) [Mass/Vol]13.5 g/dL11.9 - 15.1 g/dLKeenan Private Hospital, CARLOSImmature granulocytes (Bld) [#/Vol]10*3/uLKeenan Private Hospital, CARLOSImmature granulocytes (Bld) [#/Vol]0 %0[facility], NVInterpretation and review of laboratory resultsAbnormalKeenan Private Hospital, CARLOSLymphocytes (Bld) [#/Vol]1.81 10*3/uLKeenan Private Hospital, CARLOSLymphocytes/100 WBC (Bld)22 %Low24 - 43 %[facility], [facility]H (RBC) [Entitic mass]28.1 pg25.2 - 33.5 pgKeenan Private Hospital, NVMCHC (RBC) [Mass/Vol]31.9 g/dL28.4 - 34.8 g/dLKeenan Private Hospital, CARLOSMCV (RBC) [Entitic vol] 87.9 fL82.6 - 102.9 fLKeenan Private Hospital, CARLOSMonocytes (Bld) [#/Vol]0.55 10*3/uL [facility], CARLOSMonocytes/100 WBC (Bld)7 %3 - 12 %[place], [place] Platelet mean volume (Bld) [Entitic vol]9.0 fL8.1 - 13.5 fLHallett, [place] Platelets (Bld) [#/Vol]NOT REPORTEDKe[facility], CARLOSPlatelets (Bld) [#/Vol] 240 10*3/uLKeenan Private Hospital, CARLOSRBC (Bld) [#/Vol]4.81 10*6/uL3.95 - 5.11 m/uL [facility], NVRBC morphology finding Nom (Bld)NOT REPORTEDKe[facility]an Private Hospital, NVSegmented neutrophils/100 WBC (Bld)65 %36 - 65 %[facility] Absolute5.37[facility] (Bld) [#/Vol]0.0 10*3/uL0.0 per 100 WBCMercy Health Willard Hospital (Bld) [#/Vol]8.3 10*3/uLMercy Health Willard Hospital MorphologyNOT REPORTEDHallett, KYMetabolic Panelon [id number]/1.73 sq M predicted among non-blacks MDRD (S/P/Bld) [Vol rate/Area][facility] on above:Average GFR for 60-69 years old: 85 mL/min/1.73sq m Chronic Kidney Disease: <60 mL/min/1.73sq m Kidney failure: <15 mL/min/1.73sq m eGFR calculated using average adult body mass. Additional eGFR calculator available at: http://www.[employer]/multiple_crcl_2012.htm Stage 1: Some kidney damage normal GFR Stage 2: Mild kidney damage GFR 60-89 Stage 3: Moderate kidney damage GFR 30-59 Stage 4: Severe kidney damage GFR 15-29 Stage 5: Severe kidney damage GFR <15 ESRD - chronic treatment by dialysis or transplant Troponinon [id number] I.cardiac [Mass/Vol]NOT REPORTEDHal[place], KYTrriverview regional medical centernin T.cardiac [Mass/Vol]NOT REPORTED<0.03 ng/mLHallett, [place] Troponin, High Lbhyndzojgq18 ng/L0 - 14 ng/LMLakes Regional Healthcare on above: High Sensitivity Troponin values cannot be compared with other Troponin methodologies. Patients with high levels of Biotin oral intake (i.e >5mg/day) may have falsely decreased Troponin levels. Samples collected within 8 hours of biotin intake may require additional information for diagnosis. XR CHEST PORTABLEon [id number], kevin Incoming Radiant Results From [employer] - 03/13/2020 1:12 PM EST EXAMINATION: ONE [...] for congestive heart failure and mild edema. [facility] [place], KYEXAMINATION: ONE XRAY VIEW OF THE CHEST 03/13/2020 12:25 pm COMPARISON: October 08, 2019 HISTORY: ORDERING SYSTEM PROVIDED HISTORY: dyspnea TECHNOLOGIST PROVIDED HISTORY: dyspnea FINDINGS: Cardiac silhouette is enlarged. No pneumothorax. No pleural effusion. Pulmonary vascular congestion. Interstitial prominence within the lung bases. Overall, findings are slightly progressed since previous exam.[facility]- [place], KYFindings as above concerning for congestive heart failure and mild edema.[facility]- [place], KYMicroscopic Urinalysison [id number], UANOT REPORTEDNoneMercy Health- [place], [place] Bacteria, UA2+AbnormalNoneMey Health- [place], KYCasts UANOT REPORTED/LPFMercy Health- [place], KYCrystals, UANOT REPORTEDNone /HPFMercy Health- [place], KYEpithelial Cells UA0 TO 2[facility]- [place], KYInterpretation and review of laboratory resultsAbnormalMercy Health- [place], KYMucus, UANOT REPORTEDNoneMercy [facility]- [place], [place] Other Observations UANOT REPORTEDNOT REQ.[facility]- [place], KYRBC (U) [#/Vol]0 TO 2[facility]- [place], KYRenal Epithelial, UANOT REPORTED0 /HPFMercy Health- [place], [place] Trichomonas, UANOT REPORTEDNoneMer[facility]- [place], KYWBC, UA10 TO 20[facility]- [place], KYYeast, UANOT REPORTEDNoneMercy [facility]- [place], [place]-[facility] [place], [place] Urinalysis Reflex to Cultureon [id number] UrineNegativeNEGATIVEMercy Health- [place], KYColor, UAYELLOWYELLOWMercy Health- [place], KYGlucose, UrNegative NEGATIVEMercy Health- [place], KYInterpretation and review of laboratory results AbnormalMercy Health- [place], KYKetones Ql (U)NegativeNEGATIVEMercy Health- [place], [place] Leukocyte esterase Test strip Ql (U)MODERATEAbnormalNEGATIVEMercy Health- [place], [place] Nitrite, UrinePositiveAbnormalNEGATIVEMercy Health- [place], KYpH, UA6.0[facility]- [place], KYProtein (U) [Mass/Vol]NegativeNEGATIVEAdena [facility]- [place], KYSpecific [place], UA1.020[facility]- [place], KYTurbidity UACLEARCLEAROhiohealth Doctors Hospital [place], [place] Urinalysis CommentsNOT REPORTEDAdena Fayette Medical Center- [place], KYUrine Hgb1+AbnormalNEGATIVE [facility], KYUrobilinogen, UrineNormalNormalOhiohealth Doctors Hospital [place], KYXR HIP 3- 4 VW W PELVIS BILATERALon 12-11-0923Vskaxqwk right hip osteoarthritis. Suggestion of slight increased sclerosis and flattening of the femoral head could be on the basis of avascular necrosis. Mild left hip degenerative changes. Calcific densities along both greater trochanters are nonspecific and may be related to prior trauma or canbe seen with calcific tendinosis.[facility], Bridgette Win Incoming Radiant Results From [employer] - 02/12/2020 3:49 PM EST EXAMINATION: ONE [...] or can be seen with calcific tendinosis. [facility], CARLOSEXAMINATION: ONE X-RAY VIEW OF THE PELVIS [...] fragment adjacent to the greater trochanter is nonspecific.[facility], NVCBC Auto Differentialon [id number] (Bld) [#/Vol]0.11 10*3/[facility], KYBasophils/100 WBC (Bld)1 %0 - 2 %[facility], [place] Differential TypeNOT REPORTEDKe[facility]an Private Hospital, KYEosinophils (Bld) [#/Vol]0.38 10*3/[facility], KYEosinophils/100 WBC (Bld)4 %1 - 4 %[facility], NVErythrocyte distribution width (RBC) [Ratio]14.6 %High11.8 - 14.4 %[facility], NVHematocrit (Bld) [Volume fraction]46.9 %36.3 - 47.1 %[facility], NVHemoglobin (Bld) [Mass/Vol]14.5 g/dL11.9 - 15.1 g/dLKeenan Private Hospital, [place] Immature granulocytes (Bld) [#/Vol]0 %0[facility], NVImmature granulocytes (Bld) [#/Vol]0.03 10*3/[facility], NVInterpretation and review of laboratory resultsAbnormalKeenan Private Hospital, KYLymphocytes (Bld) [#/Vol]1.55 10*3/[facility], KYLymphocytes/100 WBC (Bld)15 %Low24 - 43 %[facility], KYMCH (RBC) [Entitic mass]28.4 pg25.2 - 33.5 pgKeenan Private Hospital, [place] MCHC (RBC) [Mass/Vol]30.9 g/dL28.4 - 34.8 g/dLVeterans Health Administration Health- [place], CARLOSMCV (RBC) [Entitic vol]91.8 fL82.6 - 102.9 fLTuscarawas Hospitalinocencio Health- [place], CARLOSMonocytes (Bld) [#/Vol] 0.55 10*3/uLTuscarawas Hospitalinocencio Health- [place], KYMonocytes/100 WBC (Bld)5 %3 - 12 %[facility]- [place], CARLOSPlatelet mean volume (Bld) [Entitic vol]9.6 fL8.1 - 13.5 fLAdena Fayette Medical Center- [place], KYPlatelets (Bld) [#/Vol]NOT REPORTEDAdena F[facility]- [place], KYPlatelets (Bld) [#/Vol]278 10*3/uLTuscarawas Hospitalinocencio [facility]- [place], CARLOSRBC (Bld) [#/Vol]5.11 10*6/uL3.95 - 5.11 m/uLAdena Fayette Medical Center- [place], KYRBC morphology finding Nom (Bld)ANISOCYTOSIS PRESENT [facility]- [place], CARLOSSegmented neutrophils/100 WBC (Bld)75 %High36 - 65 %[facility]- [place], CARLOSSegs Absolute7.53[facility]- [place], KYWBC (Bld) [#/Vol]10.2 10*3/uL [facility]- [place], KYWBC (Bld) [#/Vol]0.0 10*3/uL0.0 per 100 WBCAdena Fayette [facility] Center- [place], KYWBC MorphologyNOT REPORTEDAdena Fayette [facility]- [place], CARLOSCardiacon [id number] [Mass/Vol]267 mg/dLHigh(<200)[facility] Work Phone: Comment on above:Note: Cholesterol Guidelines:<200 Vyoqtujev190-680 Borderline>240 UndesirableResponsible Observer: CCEV AUTOFILE ([id number])Comprehensive Metabolic Panelon [id number] [Mass/Vol]4.3 g/dL3.5 - 5.2 g/dLVeterans Health Administration Health- [place], KYAlbumin/Globulin [Mass ratio]1.6 {ratio}[facility]perla [facility]- [place], CARLOSALP [Catalytic activity/Vol]79 U/L35 - 104 U/LMfostoria city hospital Health- [place], [place] ALT [Catalytic activity/Vol]7 U/L5 - 33 U/LMfostoria city hospital Health- [place], KYAnion gap [Moles/Vol]16 mmol/L9 - 17 mmol/LMfostoria city hospital Health- [place], KYAST [Catalytic activity/Vol]17 U/L<32[facility]- [place], KYBilirubin Ql (U)0.16 mg/dLLow0.3 - 1.2 mg/dLAdena Fayette Medical Center- [place], KYBun/Cre RatioNOT REPORTEDMerMultiCare [facility]- [place], KYCalcium [Mass/Vol]10.0 mg/dL8.6 - 10.4 mg/dLAdena Fayette Medical Center- [place], KYChloride [Moles/Vol]103 mmol/L98 - 107 mmol/LMfostoria city hospital Health- [place], KYCO2 [Moles/Vol]21 mmol/L20 - 31 mmol/L [facility], KYCreatinine [Mass/Vol]1.32 mg/dLHigh0.5 - 0.9 mg/dLAdena Fayette Medical Center- [place], KYGFR Alykyego88 mL/minLow>60[facility]- [place], KYGFR Non- Stzylnvs00 mL/minLow>60[facility]- [place], KYGFR/1.73 sq M predicted among non-blacks MDRD (S/P/Bld) [Vol rate/Area][facility], KYComment on above: Average GFR for 60-69 years old: 85 mL/min/1.73sq m Chronic Kidney Disease: <60 mL/min/1.73sq m Kidney failure: <15 mL/min/1.73sq m eGFR calculated using average adult body mass. Additional eGFR calculator available at: http://www.[employer]/multiple_crcl_2012.htm GFR/1.73 sq M predicted among non-blacks MDRD (S/P/Bld) [Vol rate/Area]NOT REPORTEDAdena Fayette [facility] Center- [place], KYGlucose [Mass/Vol]122 mg/wATeon05 - 99 mg/dLOhiohealth Doctors Hospital [place], KYPotassium [Moles/Vol]5.1 mmol/L3.7 - 5.3 mmol/LMfostoria city hospital Health- [place], KYProtein [Mass/Vol]7.0 g/dL6.4 - 8.3 g/dLMerAultman Hospital, KYSodium [Moles/Vol] 140 mmol/L135 - 144 mmol/LMercy [facility], KYUrea nitrogen [Mass/Vol]18 mg/dL8 - 23 mg/dLKeenan Private Hospital, KYHematologyon [id number]/100 WBC (Bld)1 % (0-2)[facility] Work Phone: Comment on above:Note: Responsible Observer: XNV AUTOFILE ([id number])Eosinophils (Bld) [#/Vol]0.38 10*3/uL(0.00-0.44)[facility] Work Phone: Comment on above:Note: Responsible Observer: XNV AUTOFILE ([id number])Eosinophils/100 WBC (Bld)4 %(1-4)[facility] Work Phone: Comment on above:Note: Responsible Observer: XNV AUTOFILE ([id number])Hematocrit (Bld) [Volume fraction]46.9 %(36.3-47.1)[facility] Work Phone: Comment on above:Note: Responsible Observer: XNV AUTOFILE ([id number])Hemoglobin (Bld) [Mass/Vol]14.5 g/dL(11.9-15.1)[facility] Work Phone: Comment on above:Note: Responsible Observer: XNV AUTOFILE ([id number])Lymphocytes (Bld) [#/Vol]1.55 10*3/uL(1.10-3.70)[facility] Work Phone: Comment on above:Note: Responsible Observer: XNV AUTOFILE ([id number])Lymphocytes/100 WBC (Bld)15 %Low(24-43)[facility] Work Phone: Comment on above:Note: Responsible Observer: XNV AUTOFILE ([id number])MCH (RBC) [Entitic mass]28.4 pg(25.2-33.5)[facility] Work Phone: Comment on above:Note: Responsible Observer: XNV AUTOFILE ([id number])MCV (RBC) [Entitic vol]91.8 fL(82.6-102.9)[facility] Work Phone: Comment on above:Note: Responsible Observer: XNV AUTOFILE ([id number])Monocytes (Bld) [#/Vol]0.55 10*3/uL(0.10-1.20)[facility] Work Phone: Comment on above:Note: Responsible Observer: XNV AUTOFILE ([id number])Monocytes/100 WBC (Bld)5 %(3-12)[facility] Work Phone: Comment on above:Note: Responsible Observer: XNV AUTOFILE (3017)Platelets (Bld) [#/Vol]278 10*3/uL(138-453)[facility] Work Phone: Comment on above:Note: Responsible Observer: XNV AUTOFILE ([id number])Platelets (Bld) [#/Vol]NOT REPORTEDCardinal Cushing Hospital Work Phone: RBC (Bld) [#/Vol]5.11 10*6/uL(3.95-5.11)[facility] Work Phone: Comment on above:Note: Responsible Observer: XNV AUTOFILE ([id number])RBC morphology finding Nom (Bld)ANISOCYTOSIS PRESENTCardinal Cushing Hospital Work Phone: Comment on above:Note: Responsible Observer: XNV AUTOFILE ([id number])WBC (Bld) [#/Vol]0.0 per_100_WBC(0.0)[facility] Work Phone: Comment on above:Note: Responsible Observer: XNV AUTOFILE ([id number])WBC (Bld) [#/Vol]10.2 10*3/uL(3.5-11.3)[facility] Work Phone: Comment on above:Note: Responsible Observer: XNV AUTOFILE ([id number])Lipid, Fastingon 40-59-7317Xjrxulcobyy [Mass/Vol]267 mg/dLHigh <200[facility], NVComment on above: Cholesterol Guidelines: <200 Desirable 200-240 Borderline >240 Undesirable Cholesterol in HDL [Mass/Vol]36 mg/dLLow>40MerAultman Hospital, NVComment on above: HDL Guidelines: <40 Undesirable 40-59 Borderline >59 Desirable Cholesterol in LDL [Mass/Vol]172 mg/dLHigh0 - 130 mg/dLKeenan Private Hospital, [place] Comment on above: LDL Guidelines: <100 Desirable 100-129 Near to/above Desirable 130-159 Borderline >159 Undesirable Direct (measured) LDL and calculated LDL are not interchangeable tests. Cholesterol in VLDL [Mass/Vol]NOT REPORTEDHigh1 - 30 mg/dLHal[place], [place] Cholesterol.total/Cholesterol in HDL [Mass ratio]7.4 {ratio}High<5[facility], NVTriglyceride, Nbagnfl142 mg/dLHigh<150MerAultman Hospital, KYComment on above: Triglyceride Guidelines: <150 Desirable 150-199 Borderline 200-499 High >499 Very high Based on AHA Guidelines for fasting triglyceride, December 2011. Metabolic Panelon [id number] [Mass/Vol]4.3 g/dL(3.5-5.2)[facility] Work Phone: Comment on above:Note: Responsible Observer: CCEV AUTOFILE ([id number])ALT [Catalytic activity/Vol]7 U/L(5-33)[facility] Work Phone: Comment on above:Note: Responsible Observer: CCEV AUTOFILE ([id number])Anion gap [Moles/Vol]16 mmol/L(9-17)[facility] Work Phone: Comment on above:Note: Responsible Observer: CCEV AUTOFILE ([id number])AST [Catalytic activity/Vol]17 U/L(<32)[facility] Work Phone: Comment on above:Note: Responsible Observer: CCEV AUTOFILE ([id number])Bilirubin [Mass/Vol]0.16 mg/dLLow(0.3-1.2)[facility] Work Phone: Comment on above:Note: Responsible Observer: CCEV AUTOFILE ([id number])Calcium [Mass/Vol]10.0 mg/dL(8.6-10.4)[facility] Work Phone: Comment on above:Note: Responsible Observer: CCEV AUTOFILE (3002)Chloride [Moles/Vol]103 mmol/L(98-107)[facility] Work Phone: Comment on above:Note: Responsible Observer: CCEV AUTOFILE (3002)CO2 [Moles/Vol]21 mmol/L(20-31)[facility] Work Phone: Comment on above:Note: Responsible Observer: CCEV AUTOFILE (3002)Creatinine [Mass/Vol]1.32 mg/dLHigh(0.50-0.90)[facility] Work Phone: Comment on above:Note: Responsible Observer: CCEV AUTOFILE ([id number])Glucose [Mass/Vol]122 mg/dLHigh(70-99)[facility] Work Phone: Comment on above:Note: Responsible Observer: CCEV AUTOFILE ([id number])Potassium [Moles/Vol]5.1 mmol/L(3.7-5.3)[facility] Work Phone: Comment on above:Note: Responsible Observer: CCEV AUTOFILE (3002)Protein [Mass/Vol]7.0 g/dL(6.4-8.3)[facility] Work Phone: Comment on above:Note: Responsible Observer: CCEV AUTOFILE (3002)Sodium [Moles/Vol]140 mmol/L(135-144)[facility] Work Phone: Comment on above:Note: Responsible Observer: CCEV AUTOFILE (3002)Urea nitrogen [Mass/Vol]18 mg/dL(8-23)[facility] Work Phone: Comment on above:Note: Responsible Observer: CCEV AUTOFILE ([id number])Other 27-94-3823Jittpangekinow and review of laboratory results [facility], [place](cont.)See NoteCardinal Cushing Hospital Work Phone: Comment on above:Note: Average GFR for 60-69 years old:85 mL/min/1.73sq mChronic Kidney Disease:<60 mL/min/1.73sqmKidney failure:<15 mL/min/1.73sq meGFR calculated using average adult body mass. Additional eGFR calculatoravailable at:http://www.[employer]/multiple_crcl_2011.htmResponsible Observer: CCEV AU TOFILE (3002)Abs. Basophil0.11 k/uL(0.00-0.20)[facility] Work Phone: Comment on above:Note: Responsible Observer: XNV AUTOFILE ([id number])Abs.Imm.Granulocyte0.03 k/uL(0.00-0.30)[facility] Work Phone: Comment on above:Note: Responsible Observer: XNV AUTOFILE ([id number])Abs.Neutrophil (Seg)7.53 k/uL(1.50-8.10)[facility] Work Phone: Comment on above:Note: Responsible Observer: XNV AUTOFILE ([id number])Albumin/Glob Ratio1.6(1.0-2.5)[facility] Work Phone: Comment on above:Note: Responsible Observer: CCEV AUTOFILE (3002)Alkaline Phos79 U/L(35-104)[facility] Work Phone: Comment on above:Note: Responsible Observer: CCEV AUTOFILE ([id number])Auto Diff PerformedNOT REPORTEDCardinal Cushing Hospital Work Phone: BUN/CRE RatioNOT REPORTED(9-20)[facility] Work Phone: Cholesterol,HDL36 mg/dLLow(>40)[facility] Work Phone: Comment on above:Note: HDL Guidelines:<40 Inmnowlruni02-17 Borderline>59 DesirableResponsible Observer: CCEV AUTOFILE (3002)Cholesterol,PTV197 mg/dLHigh(0-130)[facility] Work Phone: Comment on above:Note: LDL Guidelines:<100 Vlpegvpoz323-417 Near to/above Guhbcgvup040-702 Borderline>159 UndesirableDirect (measured) LDL and calculated LDL are not interchangeable tests.Responsible Observer: CCEV AUTOFILE (3002)Cholesterol,VLDLNOT REPORTED mg/dL(1-30)[facility] Work Phone: Cholesterol.total/Cholesterol in HDL [Mass ratio]7.4 {ratio}High(<5)[facility] Work Phone: Comment on above:Note: Responsible Observer: CCEV AUTOFILE ([id number])Erythrocyte distribution width (RBC) [Ratio]14.6 %High(11.8-14.4) [facility] Work Phone: Comment on above:Note: Responsible Observer: XNV AUTOFILE ([id number])GFR, Amer50 mL/minLow(>60)[facility] Work Phone: Comment on above:Note: Responsible Observer: CCEV AUTOFILE (3002)GFR,non Amer41 mL/minLow(>60)[facility] Work Phone: Comment on above:Note: Responsible Observer: CCEV AUTOFILE ([id number])Immature granulocytes (Bld) [#/Vol]0 %(0)[facility] Work Phone: Comment on above:Note: Responsible Observer: XNV AUTOFILE ([id number])MCHC (RBC) [Mass/Vol]30.9 g/dL(28.4-34.8)[facility] Work Phone: Comment on above:Note: Responsible Observer: XNV AUTOFILE ([id number])Performing Lab:see noteHealth [facility] Work Phone: Comment on above:Note: INFOGRAPHIQS [address] [facility] [address] Platelet mean volume (Bld) [Entitic vol] 9.6 fL(8.1-13.5)[facility] Work Phone: Comment on above:Note: Responsible Observer: XNV AUTOFILE ([id number])Reported PhysiciansSee NoteCardinal Cushing Hospital Work Phone: Comment on above:Note: Reported Physicians:Ordering: Erci CalderóneeAttending: Stephane, AimeeReferring: Cotton, AimeeSegmented neutrophils/100 WBC (Bld)75 %High(36-65)[facility] Work Phone: Comment on above:Note: Responsible Observer: XNV AUTOFILE ([id number])Staging:NOT REPORTEDCardinal Cushing Hospital Work Phone: Thyroid Stim. Horm.2.41 mIU/L(0.30-5.00)[facility] Work Phone: Comment on above:Note: Responsible Observer: SWATI NASH ([id number])Triglyceride,Vobzwak603 mg/dLHigh(<150)[facility] Work Phone: Comment on above:Note: Triglyceride Guidelines:<150 Utsmjmsiu093-336 Fucmnlwapx542-993 High>499 Very highBasedon AHA Guidelines for fasting triglyceride, December 2011.Responsible Observer: CCEV AUTOFILE ([id number])WBC MorphologyNOT REPORTEDHealth [facility] Work Phone: TSH with Reflexon [id number] Qn2.41 m[IU]/[employer] [facility], KYLUMBAR SPINE 4 OR 5 Son [id number] SPINE 4 OR 5 S [facility] Department of Radiology [address] [place] [id number] Patient Name: JONATAN OLIVAREZ : 1960 Sex: F Age: Race: White Pt. Location: 84 Patient Status: Ordered Date: 12/24/2019 10:40:00 AM Completed Date: 12/24/2019 10:41 AM Requesting Provider: ZIYAD BENITEZ Attending Provider: Report Copy To: Signs & Symptoms: M48.061 Spinal stenosis, lumbar region without neurogenic chapito I10 History: [place] Comments: , , , Ordering Provider - ZIYAD BENITEZ MD , Exam: LUMBAR SPINE 4 OR 5 [facility] LUMBAR SPINE 4 OR 5 S [...] Electronically signed: Dionicio Bhakta M.D.. Transcribed by: [email or web address], User Resident: Electronically Signed by: DIONICIO BHAKTA @ 12/24/2019 08:37 [facility] HospitalComment on above:Order Comment: , , , Ordering Provider - ZIYAD BENITEZ MD , Microscopic Urinalysison [id number], UANOT REPORTEDNoneMercy Health- [place], [place] Bacteria, UAMODERATEAbnormalNoneMercy [...] [place]-[facility]- [place], KYUrinalysis Reflex to Cultureon [id number] UrineNegative NEGATIVEMercy Health- [place], KYColor, UADARK YELLOWAbnormalYELLOWMercy Health- [place], KYGlucose, UrNegativeNEGATIVEMercy Health- [place], KYInterpretation and review of laboratory resultsAbnormalMercy Health- [place], KYKetones Ql (U)NegativeNEGATIVE [facility] [place], KYLeukocyte esterase Test strip Ql (U)MODERATEAbnormalNEGATIVE [facility]- [place], KYNitrite, UrineNegativeNEGATIVEMercy Health- [place], KYpH, UA7.0 [facility]- [place], KYProtein (U) [Mass/Vol]1+AbnormalNEGATIVEMercy Health- [place], [place] Specific [place], UA1.025[facility]- [place], KYTurbidity UATURBIDAbnormalCLEAR [facility]- [place], KYUrinalysis CommentsNOT REPORTEDMercy Health- [place], KYUrine Hgb SMALLAbnormalNEGATIVEMercy Health- [place], KYUrobilinogen, UrineNormalNormalMercy Health- [place], KYHematologyon [id number] (Bld) [Mass/Vol]SMALLAbnormal (NEG)[facility] Work Phone: Comment on above:Note: Responsible Observer: ZI [id number])Metabolic Panelon [id number].direct [Mass/Vol]Negative (NEG)[facility] Work Phone: Comment on above:Note: Responsible Observer: ZI [id number])Glucose [Mass/Vol]Negative(NEG)[facility] Work Phone: Comment on above:Note: Responsible Observer: ZI Eagle814Shefali)Protein [Mass/Vol]1+Abnormal(NEG)[facility] Work Phone: Comment on above:Note: Responsible Observer: ZI Ealge2829)Otheron 11-16-2019-----See NoteHealth [facility] Work Phone: Comment on above:Note: Responsible Observer: ZI Eagle8840)Acetoacetic Acid,UrNegative(NEG)[facility] Work Phone: Comment on above:Note: Responsible Observer: ZI VARGAS ([id number])CommentNOT REPORTEDHealth [facility] Work Phone: Cult,UrineSee NoteTrinity Health System East Campus [facility] Work Phone: Comment on above:Note: Specimen Description .URINESpecial Requests NOT REPORTEDCulture CITROBACTER FREUNDII >[id number] CFU/MLReport Status FINAL 11/18/2019SUSCEPTIBILITYOrganism CITROBACTER FREUNDIIMethod MICAmikacinNOT REPORTEDAztreonam <=1 SUSCEPTIBLECefazolin NOT REPORTEDCefepime NOT REPORTEDCeftriaxone <=1 SUSCEPTIBLECiprofloxacin <=0.25 SUSCEPTIBLEErtapenem NOT REPORTEDGentamicin <=1 SUSCEPTIBLEMeropenem NOT REPORTEDNitrofurantoin <=16 SUSCEPTIBLETigecycline NOT REPORTEDTobramycin <=1 SUSCEPTIBLETrimethoprim/Sulfa <=20 SUSCEPTIBLEPiperacillin/Tazobactam <=4 SUSCEPTIBLEResponsibleObserver: ZI VARGAS ([id number])Epithelial, RenalNOT REPORTED /HPF(0)[facility] Work Phone: Leuckocyte EsteraseMODERATEAbnormal(NEG)[facility] Work Phone: Comment on above:Note: Responsible Observer: ZI VARGAS ([id number])Mucus StrandsNOT REPORTED(NONE)[facility] Work Phone: Nitrite,UrNegative(NEG)[facility] Work Phone: Comment on above:Note: Responsible Observer: ZI VARGAS ([id number])Other ObservationsNOT REPORTED(NREQ)[facility] Work Phone: Performing Lab:see noteCardinal Cushing Hospital Work Phone: Comment on above:Note: [facility] [employer] [address] [facility] [address] PH,Ur7.0(5.0-8.0)[facility] Work Phone: Comment on above:Note: Responsible Observer: ZI VARGAS ([id number])RBC (U) [#/Vol]5 TO 10 /HPF(0-2)[facility] Work Phone: Comment on above:Note: Responsible Observer: ZI VARGAS ([id number])Reported PhysiciansSee NoteCardinal Cushing Hospital Work Phone: Comment on above:Note: Reported Physicians:Ordering: Stephane AimeeAttending: Cotton, AimeeReferring: Cotton, AimeeSpec. [place],Ur 1.025(1.005-1.030)[facility] Work Phone: Comment on above:Note: Responsible Observer: ZI VARGAS ([id number])TrichomonasNOT REPORTED(NONE)[facility] Work Phone: TurbidityTURBIDAbnormal(CLEAR)[facility] Work Phone: Comment on above:Note: Responsible Observer: ZI VARGAS ([id number])Urobilinogen,UrNormal(NORM)[facility] Work Phone: Comment on above:Note: Responsible Observer: ZI VARGAS ([id number])Urinalysison [id number] sediment LM Ql (Urine sed)NOT REPORTED(NONE)[facility] Work Phone: Bacteria identified Cx Nom (U)See NoteCardinal Cushing Hospital Work Phone: Comment on above:Note: Specimen Description .URINESpecial Requests NOT REPORTEDCulture CITROBACTER FREUNDII >[id number] CFU/MLReport Status FINAL 11/18/2019SUSCEPTIBILITYOrganism CITROBACTER FREUNDIIMethod MICAmikacinNOT REPORTEDAztreonam <=1 SUSCEPTIBLECefazolin NOT REPORTEDCefepime NOT REPORTEDCeftriaxone <=1 SUSCEPTIBLECiprofloxacin <=0.25 SUSCEPTIBLEErtapenem NOT REPORTEDGentamicin <=1 SUSCEPTIBLEMeropenem NOT REPORTEDNitrofurantoin <=16 SUSCEPTIBLETigecycline NOT REPORTEDTobramycin <=1 SUSCEPTIBLETrimethoprim/Sulfa <=20 SUSCEPTIBLEPiperacillin/Tazobactam <=4 SUSCEPTIBLEResponsibleObserver: ZI VARGAS ([id number])Bacteria LM.HPF (Urine sed) [#/Area]MODERATEAbnormal(NONE)[facility] Work Phone: Comment on above:Note: Responsible Observer: ZI VARGAS ([id number])Casts LM.LPF (Urine sed) [#/Area]NOT REPORTED /LPF(0-2)[facility] Work Phone: Color (U)DARK YELLOWAbnormal(YEL)[facility] Work Phone: Comment on above:Note: Responsible Observer: ZI VARGAS ([phone])Crystals LM Nom (Urine sed)NOT REPORTED /HPF(NONE)[facility] Work Phone: Epithelial cells LM.HPF (Urine sed) [#/Area]0 TO 2 /HPF(0-5)[facility] Work Phone: Comment on above:Note: Responsible Observer: ZI VARGAS ([phone])WBC (U) [#/Vol]TOO NUMEROUS TO COUNT /HPF(0-5)[facility] Work Phone: Comment on above:Note: Responsible Observer: ZI VARGAS ([id number])Yeast LM Ql (Urine sed)NOT REPORTED(NONE)[facility] Work Phone: ammoniaon [id number] (P) [Mass/Vol]26 umol/L11 - 51 umol/LMercy [facility], KYCT Head WO Contraston [id number]: CT OF THE HEAD WITHOUT CONTRAST 10/08/2019 [...] abnormality of the visualized skull or soft tissues.[facility], KYNo acute intracranial abnormality. Chronic small vessel ischemic disease.[facility], Bridget[place] Win Incoming Radiant Results From [employer] - 10/08/2019 12:43 AM EDT EXAMINATION: CT [...] intracranial abnormality. Chronic small vessel ischemic disease. [facility], KYComprehensive Metabolic Panelon [id number] [Mass/Vol] 3.6 g/dL3.5 - 5.2 g/dLKeenan Private Hospital, KYAlbumin/Globulin [Mass ratio]1.2 {ratio}[facility], KYALP [Catalytic activity/Vol]81 U/L35 - 104 U/LMSelect [facility] [place], KYALT [Catalytic activity/Vol]11 U/L5 - 33 U/LMSelect [facility] [place], [place] Anion gap [Moles/Vol]15 mmol/L9 - 17 mmol/LMthe university of [facility]led[facility] medical centery [facility]- [place], KYAST [Catalytic activity/Vol]15 U/L<32[facility]- [place], KYBilirubin Ql (U)<0.10Low0.3 - 1.2 mg/dLAdena Fayette Medical Center- [place], KYBun/Cre Kvucd47QauiiOhiohealth Doctors Hospital [place], KYCalcium [Mass/Vol] 9.1 mg/dL8.6 - 10.4 mg/dLKeenan Private Hospital, KYChloride [Moles/Vol]99 mmol/L98 - 107 mmol/LMSelect [facility] [place], KYCO2 [Moles/Vol]23 mmol/L20 - 31 mmol/LMBerger Hospital- [place], KYCreatinine [Mass/Vol]1.18 mg/dLHigh0.5 - 0.9 mg/dLKeenan Private Hospital, KYGFR Zlyhlaan74 mL/minLow>60[facility] [place], KYGFR Non- Fyftwdib97 mL/minLow>60[facility], KYGlucose [Mass/Vol]113 mg/iBMyhz39 - 99 mg/dLKeenan [facility] Hospital, KYInterpretation and review of laboratory results AbnormalKeenan Private Hospital, KYPotassium [Moles/Vol]4.4 mmol/L3.7 - 5.3 mmol/LMSelect [facility] [place], KYProtein [Mass/Vol]6.5 g/dL6.4 - 8.3 g/dLKeenan [facility] Hospital, [place] Sodium [Moles/Vol]137 mmol/L135 - 144 mmol/LMMount Carmel Health System, KYUrea nitrogen [Mass/Vol]19 mg/dL8 - 23 mg/dLKeenan Private Hospital, KYLipaseon [id number] [Catalytic activity/Vol]20 U/L13 - 60 U/LMMount Carmel Health System, KYMetabolic Panelon [id number]/1.73 sq M predicted among non-blacks MDRD (S/P/Bld) [Vol rate/Area][facility], KYComment on above:Stage 1: Some kidney damage [...] body mass. Additional eGFR calculator available at: http://www.RealDirect.Pigit/multiple_crcl_2012.htm SPECIMEN REJECTIONon [id number] TestCP,TROPMercy Health – [facility] NVReason for RejectionUnable to perform testing: Specimen hemolyzed.[place], [place] Specimen source Nom (Unsp spec).BLOODHal[place], [place]-NOT REPORTEDKeenan Private HospitalAdriananinon [id number] I.cardiac [Mass/Vol]NOT REPORTED [facility] HospitalAdriananin T.cardiac [Mass/Vol]NOT REPORTED<0.03 ng/mLKeenan Private HospitalAdriananin, High Ollywdefxtk13 ng/L0 - 14 ng/LMMuse, [place] Comment on above: High Sensitivity Troponin values cannot be compared with other Troponin methodologies. Patients with high levels of Biotin oral intake (i.e >5mg/day) may have falsely decreased Troponin levels. Samples collected within 8 hours of biotin intake may require additional information for diagnosis. Interpretation and review of laboratory resultsAbnormalHallett, [place] Troponin I.cardiac [Mass/Vol]NOT REPORTEDKe[facility] Hospital NVTahirnin T.cardiac [Mass/Vol]NOT REPORTED<0.03 ng/mLKeenan Private Hospital NVTahirnin, High Sensitivity 15 ng/LHigh0 - 14 ng/LMMuse, KYComment on above: High Sensitivity Troponin values cannot be compared with other Troponin methodologies. Patients with high levels of Biotin oral intake (i.e >5mg/day) may have falsely decreased Troponin levels. Samples collected within 8 hours of biotin intake may require additional information for diagnosis. XR CHEST STANDARD (2 VW)on [id number] bibasilar airspace opacities could represent underlying edema or developing atypical infection. Please correlate exam findings.[facility] Hospital[facility], [place] Incoming Radiant Results From [employer] - 10/08/2019 1:08 AM EDT EXAMINATION: TWO [...] developing atypical infection. Please correlate exam findings. [facility], KYEXAMINATION: TWO XRAY VIEWS OF THE CHEST 10/08/2019 12:17 am COMPARISON: CTA chest 10/06/2019 HISTORY: ORDERING SYSTEM PROVIDED HISTORY: shortness of breath TECHNOLOGIST PROVIDED HISTORY: shortness of breath FINDINGS: The cardiomediastinal silhouette is mildly enlarged with mild prominence of the perihilar regions due to combination of prominent pulmonary arterial tree perihilar lymph nodes. Mild hazy bibasilar opacities. No pleural effusion or pneumothorax is present.[facility], KYCBC Auto Differentialon 10-07-2019 Basophils (Bld) [#/Vol]0.09 10*3/uLKeenan Private Hospital, KYBasophils/100 WBC (Bld)1 %0 - 2 %[facility], CARLOSDifferential TypeNOT REPORTEDKeenan [facility] Hospital, [place] Eosinophils (Bld) [#/Vol]0.92 10*3/uLAdena Health System, KYEosinophils/100 WBC (Bld)8 %High1 - 4 %[facility], NVErythrocyte distribution width (RBC) [Ratio]17.7 %High11.8 - 14.4 %[facility], CARLOSHematocrit (Bld) [Volume fraction]35.5 %Low36.3 - 47.1 %[facility], CARLOSHemoglobin (Bld) [Mass/Vol] 11.3 g/dLLow11.9 - 15.1 g/dLKeenan Private Hospital, KYImmature granulocytes (Bld) [#/Vol]0.06 10*3/[facility], KYImmature granulocytes (Bld) [#/Vol]1 % Ahmu5WnkctKeenan Private Hospital, CARLOSInterpretation and review of laboratory resultsAbnormal [facility], KYLymphocytes (Bld) [#/Vol]1.93 10*3/uLKeenan Private Hospital, [place] Lymphocytes/100 WBC (Bld)17 %Low24 - 43 %[facility]- [place], KYH (RBC) [Entitic mass]28.0 pg25.2 - 33.5 pgAdena Fayette Medical Center- [place], KYMCHC (RBC) [Mass/Vol]31.8 g/dL28.4 - 34.8 g/dLAdena Fayette Medical Center- [place], KYV (RBC) [Entitic vol]88.1 fL82.6 - 102.9 fL [facility]- [place], KYMonocytes (Bld) [#/Vol]0.82 10*3/uLAdena Fayette Medical Center- [place], [place] Monocytes/100 WBC (Bld)7 %3 - 12 %[facility]- [place], KYPlatelet mean volume (Bld) [Entitic vol]9.6 fL8.1 - 13.5 fLAdena Fayette Medical Center- [place], KYPlatelets (Bld) [#/Vol]318 10*3/uLAdena Fayette Medical Center- [place], KYPlatelets (Bld) [#/Vol]NOT REPORTEDAdena [facility]- [place], NVRBC (Bld) [#/Vol]4.03 10*6/uL3.95 - 5.11 m/uLAdena Fayette Medical Center- [place], NVRBC morphology finding Nom (Bld)NOT REPORTEDAdena [facility] Center- [place], NVSegmented neutrophils/100 WBC (Bld)66 %High36 - 65 %[facility]- [place], KYSegs Absolute7.51 [facility]- [place], KYWBC (Bld) [#/Vol]0.0 10*3/uL0.0 per 100 WBCAdena Fayette Medical Center- [place], KYWBC (Bld) [#/Vol]11.3 10*3/uLAdena Fayette Medical Center- [place], KYWBC MorphologyNOT REPORTED [facility]- [place], [facility] Surprisesic Metabolic Panelon [id number] gap [Moles/Vol]15 mmol/L9 - 17 mmol/LMfostoria city hospital Health- [place], KYBun/Cre Ajmwo52Fusof Health- [place], [place] Calcium [Mass/Vol]8.8 mg/dL8.6 - 10.4 mg/dLAdena Fayette Medical Center- [place], KYChloride [Moles/Vol]99 mmol/L98 - 107 mmol/LMBerger Hospital- [place], KYCO2 [Moles/Vol]24 mmol/L 20 - 31 mmol/LMercy Health- [place], KYCreatinine [Mass/Vol]0.95 mg/dLHigh0.5 - 0.9 mg/dLMercy Health- [place], KYGFR >60>60 mL/minMercy Health- [place], [place] GFR Non->60>60 mL/minMercy Health- [place], KYGlucose [Mass/Vol]163 mg/iBMule22 - 99 mg/dLMercy Health- [place], KYPotassium [Moles/Vol]4.5 mmol/L3.7 - 5.3 mmol/LMercy [facility]- [place], KYSodium [Moles/Vol]138 mmol/L135 - 144 mmol/LMercy Health- [place], KYUrea nitrogen [Mass/Vol]11 mg/dL8 - 23 mg/dLMercy Health- [place], [place] Blood Gas, Arterialon 96-12-5202Jmbjc TestPASSMercy Health- [place], KYaPTT Coag (Bld) [Time]37 sMercy Health- [place], KYCarboxyhemoglobin6.6 %High0 - 5 %[facility]- [place], KYComment on above: Reference Range: Non-Smokers 0-2% Average Smoker 2-4% Heavy Smoker <10% PVG6OCV REPORTEDMercy Health- [place], KYHCO3, Xttsplgl95.5 mmol/L22 - 26 mmol/LMercy [facility]- [place], KYInterpretation and review of laboratory resultsAbnormalMercy Health- [place], KYMethemoglobin0.4 %0 - 1.9 %[facility]- [place], KYModeNOT REPORTED [facility]- [place], KYNegative Base Excess, Art0.2 mmol/L0 - 2 mmol/LMercy [facility]- [place], KYNOTIFICATIONNOT REPORTEDMercy Health- [place], KYNOTIFICATION TIMENOT REPORTED [facility]- [place], KYO2 Device/Flow/%CannulaMercy Health- [place], KYOxygen saturation in Blood89.4 %Low95 - 98 %[facility]- [place], KYOxyhemoglobinNOT ORORPNQM35 - 98 %[facility]- [place], KYpCO2, Art, Temp AdjNOT REPORTEDMercy Health- [place], KYpCO2, Qburundc78.0HighMercy Health- [place], KYPeep/CpapNOT REPORTEDMercy Health- [place], KYpH, Art, Temp AdjNOT REPORTEDMer[facility]- [place], KYpH, Arterial7.362[facility]- [place], KYpO2, Art, Temp AdjNOT REPORTEDMercy Health- [place], KYpO2, Ffawixht63.8LowMercy Health- [place], KYPositive Base Excess, ArtNOT REPORTED0 - 2 mmol/LMercy Health- [place], KYPSVNOT REPORTEDMer Health- [place], KYPt. PositionSEMI-FOWLERSMer Health- [place], KYSample SiteRight Brachial ArteryMer Health- [place], KYSet RateNOT REPORTEDMer Health- [place], KYText for RespiratoryNOT REPORTEDMercy Health- [place], KYTotal HbNOT KKGJMQGB75 - 16 g/dlMercy Health- [place], KYTotal RateNOT REPORTEDMer Health- [place], KYVTNOT REPORTEDVeterans Health Administration Health- [place], KYBrain Natriuretic Peptideon 10-06-2019 Natriuretic peptide B (Bld) [Mass/Vol]869 pg/mLHigh<300V[facility] Health Administration Programeter- [place], [place] Comment on above:Pro-BNP results cannot be compared to BNP results.Natriuretic peptide B (Bld) [Mass/Vol]Pro-BNP Reference Range:[facility]- [place], KYComment on above: Rule Out: <300 [place] Zone: Age <50 300-450 Age 50-75 300-900 Age >75 300-1800 Usually represents mild to moderate HF but other cardiopulmonary causes cannot be ruled out. Rule In: Age <50 >450 Age 50-75 >900 Age >75 >1800 CBC Auto Differentialon 33-85-6004Evvkeuhse (Bld) [#/Vol]0.05 10*3/uLMer Health- [place], KYBasophils/100 WBC (Bld)1 %0 - 2 %[facility]- [place], KYDifferential TypeNOT REPORTEDVeterans Health Administration Health- [place], KYEosinophils (Bld) [#/Vol]0.61 10*3/uLHigh [facility]- [place], KYEosinophils/100 WBC (Bld)6 %High1 - 4 %[facility]- [place], [place] Erythrocyte distribution width (RBC) [Ratio]17.5 %High11.8 - 14.4 %[facility]- [place], KYHematocrit (Bld) [Volume fraction]34.1 %Low36.3 - 47.1 %[facility]- [place], KYHemoglobin (Bld) [Mass/Vol]11.0 g/dLLow11.9 - 15.1 g/dLAdena Fayette Medical Center- [place], [place] Immature granulocytes (Bld) [#/Vol]0.06 10*3/uLAdena Fayette Medical Center- [place], KYImmature granulocytes (Bld) [#/Vol]1 %Zsyo3LtafpAdena Fayette [facility] Center- [place], KYInterpretation and review of laboratory resultsAbnormalA[facility]a [facility]- [place], KYLymphocytes (Bld) [#/Vol]1.48 10*3/[facility]- [place], KYLymphocytes/100 WBC (Bld)13 %Low24 - 43 %[facility]- [place], KYMCH (RBC) [Entitic mass]28.1 pg25.2 - 33.5 pgAdena Fayette Medical Center- [place], [place] MCHC (RBC) [Mass/Vol]32.3 g/dL28.4 - 34.8 g/dLAdena Fayette Medical Center- [place], KYMCV (RBC) [Entitic vol]87.0 fL82.6 - 102.9 fLAdena Fayette Medical Center- [place], KYMonocytes (Bld) [#/Vol] 0.67 10*3/[facility]- [place], KYMonocytes/100 WBC (Bld)6 %3 - 12 %[facility]- [place], CARLOSPlatelet mean volume (Bld) [Entitic vol]9.6 fL8.1 - 13.5 fLAdena Fayette Medical Center- [place], KYPlatelets (Bld) [#/Vol]251 10*3/[facility]- [place], KYPlatelets (Bld) [#/Vol]NOT REPORTEDAdena [facility]- [place], KYRBC (Bld) [#/Vol]3.92 10*6/uLLow3.95 - 5.11 m/[facility]- [place], KYRBC morphology finding Nom (Bld)NOT REPORTEDAdena F[facility]- [place], KYSegmented neutrophils/100 WBC (Bld)73 %High36 - 65 %[facility]- [place], KYSegs Absolute8.24HighAdena Fayette Medical Center- [place], KYWBC (Bld) [#/Vol]0.0 10*3/uL0.0 per 100 WBCHallett, KYWBC (Bld) [#/Vol]11.1 10*3/uLHallett, [place] WBC MorphologyNOT REPORTEDKeenan Private HospitalCARLOSCOVID-19on [id number]-CoV-2 [place], KYSARS-CoV-2, PCRHallett, KYSARS-CoV-2, RapidNot DetectedNot DetectedKeenan Private Hospital NVComment on above: Rapid NAAT: The specimen is [...] management decisions. Fact sheet for Healthcare Providers: https://www.fda.gov/media/437779/download Fact sheet for Patients: https://www.fda.gov/media/131874/download Methodology: Isothermal Nucleic Acid Amplification Source.NASOPHARYNGEAL SWABHallett, KYCT Chest Pulmonary Embolism W Contraston . No evidence for acute pulmonary embolism. 2. Bilateral ground-glass opacities are noted, nonspecific in appearance. This may represent multifocal infection (including viral pneumonia), inflammatory process or less likely edema. 3. Calcified atheromatous plaque and coronary calcification. 4. Bilateral adrenal adenomas.[place], KYEXAMINATION: CTA OF THE CHEST 10/06/2019 12:50 [...] Tissues/Bones: No acute bone or soft tissue abnormality.[place], [place], [place] Incoming Radiant Results From [employer] - 10/06/2019 1:13 PM EDT EXAMINATION: CTA [...] and coronary calcification. 4. Bilateral adrenal adenomas. [facility] CARLOSD-Dimer, Quantitativeon [id number]-Dimer, Quant1.77High [facility] CARLOSRishabh on above: When combined with a [...] distal DVT. Interpretation and review of laboratory resultsAbnormCleveland Clinic Marymount Hospital, CARLOS Lactate, Sepsison 03-34-0020Fcirby Acid, Sepsis1.0 mmol/L0.5 - 1.9 mmol/[place], KYLactic Acid, Sepsis, Whole BloodNOT REPORTED0.5 - 1.9 mmol/[place], KYMetabolic Panelon 78-24-9359NPR/1.73 sq M predicted among non- blacks MDRD (S/P/Bld) [Vol rate/Area][facility] HospitalCARLOSKhanhdai on above: Average GFR for 60-69 years old: 85 mL/min/1.73sq m Chronic Kidney Disease: <60 mL/min/1.73sq m Kidney failure: <15 mL/min/1.73sq m eGFR calculated using average adult body mass. Additional eGFR calculator available at: http://www.RealDirect.Pigit/multiple_crcl_2012.htm Stage 1: Some kidney damage normal GFR Stage 2: Mild kidney damage GFR 60-89 Stage 3: Moderate kidney damage GFR 30-59 Stage 4: Severe kidney damage GFR 15-29 Stage 5: Severe kidney damage GFR <15 ESRD - chronic treatment by dialysis or transplant Otheron 61-17-9909Tnhmqxzyovpvzl and review of laboratory resultsAbnormalMercy Health- [place], KYTroponinon 66-61-0222Nhzdshqv I.cardiac [Mass/Vol]NOT REPORTED [facility]- [place], KYTroponin T.cardiac [Mass/Vol]NOT REPORTED<0.03 ng/mLMercy Health- [place], KYTroponin, High Bmzarqkwhce88 ng/L0 - 14 ng/LMercy Health- [place], [place] Comment on above: High Sensitivity Troponin values cannot be compared with other Troponin methodologies. Patients with high levels of Biotin oral intake (i.e >5mg/day) may have falsely decreased Troponin levels. Samples collected within 8 hours of biotin intake may require additional information for diagnosis. Urinalysis with [employer] 05-24-3263Dyqbrghqx, UANOT REPORTEDNoneMercy Health- [place], KYBacteria, UA4+AbnormalNoneMercy Health- [...] Epithelial, UANOT REPORTED0 /HPFMer Health- [place], KYSpecific [place], UA1.020 Merc[facility]- [place], KYTrichomonas, UANOT REPORTEDNoneMemercy health [facility] Health- [place], KYTurbidity UACLOUDYAbnormalCLEARAdena Fayette [facility] Center- [place], KYUrinalysis CommentsNOT REPORTEDVeterans Health Administration Health- [place], KYUrine HgbNegativeNEGATIVEMer Health- [place], KYUrobilinogen, Urine NormalNormalVeterans Health Administration [facility]- [place], KYWBC, UA20 TO 50Mer Health- [place], KYYeast, UANOT REPORTEDNoneMemercy health [facility]or[facility] hospital [facility]- [place], KY-[facility]- [place], KYXR CHEST 1 VWon 10-06-2019 Lonnie, Mhpn Incoming Radiant Results From [employer] - 10/06/2019 10:21 AM EDT EXAMINATION: ONE [...] symptoms. 2. Enlargement of the pulmonary arteries. [facility], KYEXAMINATION: ONE XRAY VIEW OF THE CHEST [...] Central line and endotracheal tube no longer present.[facility], KY1. Multifocal patchy opacifications concerning for multifocal pneumonia. Recommend repeat chest x-ray after cessation of symptoms. 2. Enlargement of the pulmonary arteries.[facility], KYCOVID-19on [id number]-CoV-2MMount Carmel Health System, [place] SARS-CoV-2, PCRNot DetectedNot [facility], CARLOSComment on above: (NOTE) The [employer] RealTime SARS-CoV-2 assay is a real-time (rt) reverse transcriptase (RT) polymerase chain reaction (PCR) test intended for the [employer] system. The SARS-CoV-2 primer and probe sets are designed to detect RNA from SARS-CoV-2 in nasopharyngeal (SENIOR LIBRARIAN) and oropharyngeal (OP) swabs from patients with [...] The above 1 analytes were performed by [address] [place], [place] [address] SARS-CoV-2, [facility], Wil.NASOPHARYNGEAL SWABKeenan Private Hospital, KYBasic Metabolic Panelon [id number] gap [Moles/Vol]13 mmol/L9 - 17 mmol/L [facility], KYBun/Cre RatioNOT REPORTEDKeenan Private Hospital, KYCalcium [Mass/Vol]9.0 mg/dL8.6 - 10.4 mg/dLKeenan Private Hospital, KYChloride [Moles/Vol]104 mmol/L98 - 107 mmol/LMercy Health- [place], KYCO2 [Moles/Vol]24 mmol/L20 - 31 mmol/L [facility], KYCreatinine [Mass/Vol]0.82 mg/dL0.5 - 0.9 mg/dLKeenan Private Hospital, KYGFR >60>60 mL/minOhiohealth Doctors Hospital [place], KYGFR Non->60>60 mL/minKeenan Private Hospital, KYGFR/1.73 sq M predicted among non- blacks MDRD (S/P/Bld) [Vol rate/Area]NOT REPORTEDKeenan Private Hospital, KYGFR/1.73 sq M predicted among non-blacks MDRD (S/P/Bld) [Vol rate/Area][facility], [place] Comment on above:Average GFR for 60-69 years old: 85 mL/min/1.73sq m Chronic Kidney Disease: <60 mL/min/1.73sq m Kidney failure: <15 mL/min/1.73sq m eGFR calculated using average adult body mass. Additional eGFR calculator available at: http://www.[employer]/multiple_crcl_2011.htm Glucose [Mass/Vol]113 mg/oBNvdn04 - 99 mg/dLKeenan Private Hospital, KYInterpretation and review of laboratory resultsAbnormalKeenan Private Hospital, KYPotassium [Moles/Vol]4.8 mmol/L3.7 - 5.3 mmol/LMMount Carmel Health System, KYSodium [Moles/Vol]141 mmol/L135 - 144 mmol/LMMount Carmel Health System, KYUrea nitrogen [Mass/Vol]15 mg/dL8 - 23 mg/dLKeenan Private Hospital, KYCBCon [id number] distribution width (RBC) [Ratio]18.5 %High11.8 - 14.4 %[facility], KYHematocrit (Bld) [Volume fraction]43.0 %36.3 - 47.1 %[facility], KYHemoglobin (Bld) [Mass/Vol]13.4 g/dL11.9 - 15.1 g/dLKeenan Private Hospital, KYInterpretation and review of laboratory resultsAbnormCleveland Clinic Marymount Hospital, KYMCH (RBC) [Entitic mass]27.4 pg25.2 - 33.5 pg [facility]HC (RBC) [Mass/Vol]31.2 g/dL28.4 - 34.8 g/dLHocking Valley Community HospitalV (RBC) [Entitic vol]87.9 fL82.6 - 102.9 fLHallett, KYPlatelet mean volume (Bld) [Entitic vol]9.3 fL8.1 - 13.5 fLKeenan Private Hospital, NVPlatelets (Bld) [#/Vol]262 10*3/uLKeenan Private Hospital, NVRBC (Bld) [#/Vol]4.89 10*6/uL3.95 - 5.11 m/[facility], NVWBC (Bld) [#/Vol]12.0 10*3/uLAdena Health System, NVWBC (Bld) [#/Vol]0.0 10*3/uL0.0 per 100 WBCHallett, KYEcho 2D w doppler w color completeon [id number] [facility]OS[facility]ITAL Transthoracic Echocardiography Report (TTE) Patient Name SHER Date of Study 09/03/2019 JONATAN C Date of 1960 Gender Female Age 59 year(s) Race Room Number Height: 61 inch, 154.94 cm Corporate ID [id number] Weight: 187 pounds, 84.8 kg # Patient Acct [id number] BSA: 1.84 m^2 BMI: 35.33 # kg/m^2 MR # [id number] Home Energy Inspector Fátima Adame Interpreting Physician Josef Brooks Fellow Referring Nurse Practitioner Interpreting Referring Physician Josef Brooks Fellow Type of Study TTE procedure:2D Echocardiogram, M-Mode, Doppler, Color Doppler. Procedure Date Date: 09/03/2019 Start: 09:34 AM Study Location: [facility] Indications:Coronary Atherosclerosis. History / Tech. Comments: ASHD [...] seen. Signature Vee ctronically signed by Fátima Adame(Home Energy Inspector) on 09/03/2019 10:00 AM 05:15 PM FINDINGS [...] Lateral Wall E' velocity:0.10 m/s Lateral Wall E/E':8.4[facility], [place], Bridgette Incoming Cardio Results From [facility] - 09/03/2019 5:15 PM EDT [facility] Transthoracic Echocardiography Report (TTE) Patient Name SHER Date of Study 09/03/2019 JONATAN C Date of 1960 Gender Female Age 59 year(s) Race Room Number Height: 61 inch, 154.94 cm Corporate ID [id number] Weight: 187 pounds, 84.8 kg # Patient Acct [id number] BSA: 1.84 m^2 BMI: 35.33 # kg/m^2 MR # [id number] Home Energy Inspector Fátima Adame Interpreting Physician Josef Brooks Fellow Referring Nurse Practitioner Interpreting Referring Physician Josef Brooks Type of Study TTE procedure:2D Echocardiogram, M-Mode, Doppler, Color Doppler. Procedure Date Date: 09/03/2019 Start: 09:34 AM Study Location: [facility] Indications:Coronary Atherosclerosis. History / Tech. Comments: ASHD [...] Lateral Wall E' velocity:0.10 m/s Lateral Wall E/E':8.4[facility], [facility] Metabolic Panel w/ Reflex to MGon [id number] gap [Moles/Vol]14 mmol/L9 - 17 mmol/[facility], [place] Bun/Cre RatioNOT REPORTEDKeenan Private Hospital, KYCalcium [Mass/Vol]9.3 mg/dL8.6 - 10.4 mg/dLKeenan Private Hospital, KYChloride [Moles/Vol]99 mmol/L98 - 107 mmol/[facility], KYCO2 [Moles/Vol]27 mmol/L20 - 31 mmol/[facility], [place] Creatinine [Mass/Vol]0.37 mg/dLLow0.5 - 0.9 mg/dLKeenan Private Hospital, KYGFR >60>60 mL/minKeenan Private Hospital, KYGFR Non->60>60 mL/min [facility], KYGFR/1.73 sq M predicted among non-blacks MDRD (S/P/Bld) [Vol rate/Area][facility], NVComment on above:Average GFR for 50-59 years old: 93 mL/min/1.73sq m Chronic Kidney Disease: <60 mL/min/1.73sq m Kidney failure: <15 mL/min/1.73sq m eGFR calculated using average adult body mass. Additional eGFR calculator available at: http://www.[employer]/multiple_crcl_2012.htm GFR/1.73 sq M predicted among non-blacks MDRD (S/P/Bld) [Vol rate/Area]NOT REPORTEDKeenan Private Hospital, NVGlucose [Mass/Vol]144 mg/mLOzeg94 - 99 mg/dLKeenan Private Hospital, NVInterpretation and review of laboratory resultsAbnoWilson Memorial Hospital, KYPotassium [Moles/Vol]3.2 mmol/LLow3.7 - 5.3 mmol/LMMount Carmel Health System, KYSodium [Moles/Vol]140 mmol/L135 - 144 mmol/LMMount Carmel Health System, KYUrea nitrogen [Mass/Vol]20 mg/dL6 - 20 mg/dLKeenan Private Hospital, KYMagnesiumon [id number] [Mass/Vol]2.0 mg/dL1.6 - 2.6 mg/dLKeenan Private Hospital, NVPOC Glucose Fingerstickon [id number] [Mass/Vol]233 mg/hTXdmn87 - 105 mg/dL [facility], NVInterpretation and review of laboratory resultsAbnoWilson Memorial Hospital, KYGlucose [Mass/Vol]175 mg/vKFaui33 - 105 mg/dLKeenan Private Hospital, [place] Interpretation and review of laboratory resultsAbnoWilson Memorial Hospital, NVCBC auto differentialon [id number] (Bld) [#/Vol]0.00 10*3/[facility], KYBasophils/100 WBC (Bld)0 %0 - 2 %[facility], NVDifferential TypeNOT REPORTEDKeenan Private Hospital, KYEosinophils (Bld) [#/Vol]0.00 10*3/[facility], NVEosinophils/100 WBC (Bld)0 %Low1 - 4 %[facility], NVErythrocyte distribution width (RBC) [Ratio]15.3 %High11.8 - 14.4 %[facility], [place] Hematocrit (Bld) [Volume fraction]52.0 %High36.3 - 47.1 %[facility], [place] Hemoglobin (Bld) [Mass/Vol]16.0 g/yBJjac38.9 - 15.1 g/dLAdena Fayette Medical Center- [place], [place] Immature granulocytes (Bld) [#/Vol]0.00 10*3/uLAdena Fayette Medical Center- [place], CARLOSImmature granulocytes (Bld) [#/Vol]0 %0A[facility]- [place], KYInterpretation and review of laboratory resultsAbnormalKeenan Private Hospital, KYLymphocytes (Bld) [#/Vol]1.92 10*3/uLAdena Fayette Medical Center- [place], KYLymphocytes/100 WBC (Bld)17 %Low24 - 44 %[facility]- [place], KYMCH (RBC) [Entitic mass]27.0 pg25.2 - 33.5 pgAdena Fayette Medical Center- [place], [place] MCHC (RBC) [Mass/Vol]30.8 g/dL28.4 - 34.8 g/dLAdena Fayette Medical Center- [place], CARLOSMCV (RBC) [Entitic vol]87.7 fL82.6 - 102.9 fLKeenan Private Hospital, CARLOSMonocytes (Bld) [#/Vol] 1.02 10*3/uLSelect Medical [facility], [place]- [place], KYMonocytes/100 WBC (Bld)9 %High1 - 7 %[facility], CARLOSMorphology Emmett (Bld) [Interp]ANISOCYTOSIS PRESENTAdena Fayette Medical Center- [place], CARLOSPlatelet mean volume (Bld) [Entitic vol]9.6 fL8.1 - 13.5 fLAdena Fayette Medical Center- [place], KYPlatelets (Bld) [#/Vol]NOT REPORTEDKe[facility]an Private Hospital, KYPlatelets (Bld) [#/Vol] 283 10*3/uLAdena Fayette Medical Center- [place], KYRBC (Bld) [#/Vol]5.93 10*6/uLHigh3.95 - 5.11 m/uL [facility]- [place], KYRBC morphology finding Nom (Bld)NOT REPORTEDKe[facility] Hospital, CARLOSSegmented neutrophils/100 WBC (Bld)74 %High36 - 66 %[facility], [place] Segs Absolute8.36HighAdena Fayette Medical Center- [place], KYWBC (Bld) [#/Vol]11.3 10*3/uLAdena Fayette Medical Center- [place], KYWBC (Bld) [#/Vol]0.0 10*3/uL0.0 per 100 WBCKeenan Private Hospital, KYWBC MorphologyNOT REPORTEDKeenan Private Hospital, KYCulture, Blood 2on [id number] NO GROWTH 6 DAYSKeenan Private Hospital, NVSpecial RequestsNO INFO GIVENKeenan Private Hospital, KYSpecimen Description.BLOODKeenan Private Hospital, NVPO Glucose Fingerstickon 27-50-3054Rxwvfbf [Mass/Vol]149 mg/xEDaim19 - 105 mg/dLKeenan Private Hospital, [place] Interpretation and review of laboratory resultsAbnoWilson Memorial Hospital, [place] Glucose [Mass/Vol]235 mg/aUKlwf92 - 105 mg/dLKeenan Private Hospital, NVInterpretation and review of laboratory resultsAbnoWilson Memorial Hospital, NVGlucose [Mass/Vol] 196 mg/qOSvmj39 - 105 mg/dLKeenan Private Hospital, KYInterpretation and review of laboratory resultsAbnoWilson Memorial Hospital, KYGlucose [Mass/Vol]143 mg/sWHyhl99 - 105 mg/dLKeenan Private Hospital, KYInterpretation and review of laboratory results AbnormalKeenan Private Hospital, NVBasic Metabolic Panel w/ Reflex to MGon 07-23-2019 Anion gap [Moles/Vol]13 mmol/L9 - 17 mmol/LMMount Carmel Health System, KYBun/Cre RatioNOT REPORTEDKe[facility], KYCalcium [Mass/Vol]8.9 mg/dL8.6 - 10.4 mg/dLKeenan Private Hospital, KYChloride [Moles/Vol]101 mmol/L98 - 107 mmol/LMMount Carmel Health System, [place] CO2 [Moles/Vol]25 mmol/L20 - 31 mmol/LMMount Carmel Health System, KYCreatinine [Mass/Vol] 0.35 mg/dLLow0.5 - 0.9 mg/dLKeenan Private Hospital, KYGFR >60>60 mL/minKeenan Private Hospital, KYGFR Non->60>60 mL/minKeenan Private Hospital, KYGFR/1.73 sq M predicted among non-blacks MDRD (S/P/Bld) [Vol rate/Area][facility], KYComment on above:Average GFR for 50-59 years old: 93 mL/min/1.73sq m Chronic Kidney Disease: <60 mL/min/1.73sq m Kidney failure: <15 mL/min/1.73sq m eGFR calculated using average adult body mass. Additional eGFR calculator available at: http://www.[employer]/multiple_crcl_2012.htm GFR/1.73 sq M predicted among non-blacks MDRD (S/P/Bld) [Vol rate/Area]NOT REPORTEDKe[facility] Hospital, KYGlucose [Mass/Vol]144 mg/uYShya61 - 99 mg/dLKeenan Private Hospital, KYInterpretation and review of laboratory resultsAbnoWilson Memorial Hospital, KYPotassium [Moles/Vol]4.1 mmol/L3.7 - 5.3 mmol/LMMount Carmel Health System, KYSodium [Moles/Vol]139 mmol/L135 - 144 mmol/[facility], KYUrea nitrogen [Mass/Vol]30 mg/dLHigh6 - 20 mg/dLKeenan Private Hospital, KYPOC Glucose Fingerstickon 07-04-6698Wcvuqmp [Mass/Vol]230 mg/cVGoxk85 - 105 mg/dLKeenan Private Hospital, [place] Interpretation and review of laboratory resultsAbnoWilson Memorial Hospital, [place] Glucose [Mass/Vol]200 mg/yJNcbk88 - 105 mg/dLKeenan Private Hospital, KYInterpretation and review of laboratory resultsAbnoWilson Memorial Hospital, KYGlucose [Mass/Vol] 184 mg/pMJlqq32 - 105 mg/dLKeenan Private Hospital, NVInterpretation and review of laboratory resultsAbnoWilson Memorial Hospital, NVBasic Metabolic Panel w/ Reflex to MGon [id number] gap [Moles/Vol]15 mmol/L9 - 17 mmol/LMMount Carmel Health System, [place] Bun/Cre RatioNOT REPORTEDKe[facility], KYCalcium [Mass/Vol]8.7 mg/dL8.6 - 10.4 mg/dLKe[facility], KYChloride [Moles/Vol]103 mmol/L98 - 107 mmol/LMMount Carmel Health System, KYCO2 [Moles/Vol]23 mmol/L20 - 31 mmol/LMBerger Hospital- [place], [place] Creatinine [Mass/Vol]0.47 mg/dLLow0.5 - 0.9 mg/dLKeenan Private Hospital, KYGFR >60>60 mL/minKeenan Private Hospital, KYGFR Non->60>60 mL/min [facility], KYGFR/1.73 sq M predicted among non-blacks MDRD (S/P/Bld) [Vol rate/Area]NOT REPORTEDKe[facility], KYGFR/1.73 sq M predicted among non- blacks MDRD (S/P/Bld) [Vol rate/Area][facility], KYComment on above: Average GFR for 50-59 years old: 93 mL/min/1.73sq m Chronic Kidney Disease: <60 mL/min/1.73sq m Kidney failure: <15 mL/min/1.73sq m eGFR calculated using average adult body mass. Additional eGFR calculator available at: http://www.[employer]/multiple_crcl_2012.htm Glucose [Mass/Vol]150 mg/qNYyto17 - 99 mg/dLKeenan Private Hospital, KYInterpretation and review of laboratory resultsAbnormalKeenan Private Hospital, KYPotassium [Moles/Vol]4.1 mmol/L3.7 - 5.3 mmol/[facility], KYSodium [Moles/Vol]141 mmol/L135 - 144 mmol/[facility], KYUrea nitrogen [Mass/Vol]29 mg/dLHigh6 - 20 mg/dLKeenan Private Hospital, KYCBC auto differentialon [id number] (Bld) [#/Vol]10*3/[facility], KYBasophils/100 WBC (Bld)0 %0 - 2 %[facility], KYDifferential TypeNOT REPORTEDKe[facility]an Private Hospital, KYEosinophils (Bld) [#/Vol]10*3/uLKeenan Private Hospital, KYEosinophils/100 WBC (Bld)0 %Low1 - 4 %[facility], NVErythrocyte distribution width (RBC) [Ratio]15.9 %High11.8 - 14.4 %[facility], NVHematocrit (Bld) [Volume fraction]48.9 %High36.3 - 47.1 % [facility], NVHemoglobin (Bld) [Mass/Vol]14.9 g/dL11.9 - 15.1 g/dLKeenan Private Hospital, NVImmature granulocytes (Bld) [#/Vol]1 %Qaxj9VvbeoKeenan Private Hospital, [place] Immature granulocytes (Bld) [#/Vol]0.06 10*3/uLAdena Fayette Medical Center- [place], [place] Interpretation and review of laboratory resultsAbnormalKeenan Private Hospital, [place] Lymphocytes (Bld) [#/Vol]1.16 10*3/[facility] [place], NVLymphocytes/100 WBC (Bld)10 %Low24 - 43 %[facility], NVMCH (RBC) [Entitic mass]27.8 pg25.2 - 33.5 pgKeenan Private Hospital, NVMCHC (RBC) [Mass/Vol]30.5 g/dL28.4 - 34.8 g/dLKeenan Private Hospital, NVMCV (RBC) [Entitic vol]91.2 fL82.6 - 102.9 fLKeenan Private Hospital, [place] Monocytes (Bld) [#/Vol]1.44 10*3/uLHighKeenan Private Hospital, NVMonocytes/100 WBC (Bld)12 %3 - 12 %[facility], NVPlatelet mean volume (Bld) [Entitic vol]9.7 fL8.1 - 13.5 fLKeenan Private Hospital, KYPlatelets (Bld) [#/Vol]257 10*3/[facility]- [place], KYPlatelets (Bld) [#/Vol]NOT REPORTEDKe[facility], NVRBC (Bld) [#/Vol]5.36 10*6/uLHigh3.95 - 5.11 m/uLKeenan Private Hospital, NVRBC morphology finding Nom (Bld)ANISOCYTOSIS PRESENTKeenan Private Hospital, NVSegmented neutrophils/100 WBC (Bld)78 %High36 - 65 %[facility], KYSegs Absolute9.44 HighKeenan Private Hospital, NVWBC (Bld) [#/Vol]12.1 10*3/uLAdena Health System, NVWBC (Bld) [#/Vol]0.0 10*3/uL0.0 per 100 WBCKeenan Private Hospital, KYWBC MorphologyNOT REPORTEDKeenan Private Hospital, KYMYCOPLASMA PNEUMONIAE ANTIBODY, IGMon 07-22-2019 Mycoplasma pneumo IgM0.85<0.91[facility], KYComment on above: Reference Range: <=0.90 Negative 0.91-1.09 Equivocal >=1.10 Positive POC Glucose Fingerstickon [id number] [Mass/Vol]244 mg/zXDsau24 - 105 mg/dLKeenan Private Hospital, KYInterpretation and review of laboratory resultsAbnoal [facility], KYGlucose [Mass/Vol]154 mg/iIHhhn91 - 105 mg/dLKeenan Private Hospital, KYInterpretation and review of laboratory resultsAbnoWilson Memorial Hospital, KYGlucose [Mass/Vol]209 mg/hOYklf79 - 105 mg/dLKeenan Private Hospital, [place] Interpretation and review of laboratory resultsAbLouis [facility], [place] Glucose [Mass/Vol]158 mg/aXFted84 - 105 mg/dLKeenan Private Hospital, KYInterpretation and review of laboratory resultsAbnoWilson Memorial Hospital, KYBasic Metabolic Panel w/ Reflex to MGon [id number] gap [Moles/Vol]12 mmol/L9 - 17 mmol/L [facility], KYBun/Cre RatioNOT REPORTEDKe[facility], KYCalcium [Mass/Vol]8.8 mg/dL8.6 - 10.4 mg/dLKe[facility], KYChloride [Moles/Vol]97 mmol/LLow98 - 107 mmol/LMMount Carmel Health System, KYCO2 [Moles/Vol]29 mmol/L20 - 31 mmol/LMMount Carmel Health System, KYCreatinine [Mass/Vol]0.5 mg/dL0.5 - 0.9 mg/dLAdena Fayette Medical Center- [place], KYGFR >60>60 mL/minAdena Fayette [facility] Center- [place], KYGFR Non- >60>60 mL/minAdena Fayette [facility] Center- [place], KYGFR/1.73 sq M predicted among non-blacks MDRD (S/P/Bld) [Vol rate/Area]NOT REPORTEDAdena Fayette [facility] Center- [place] GFR/1.73 sq M predicted among non-blacks MDRD (S/P/Bld) [Vol rate/Area][facility], KYComment on above:Average GFR for 50-59 years old: 93 mL/min/1.73sq m Chronic Kidney Disease: <60 mL/min/1.73sq m Kidney failure: <15 mL/min/1.73sq m eGFR calculated using average adult body mass. Additional eGFR calculator available at: http://www.[employer]/multiple_crcl_2011.htm Glucose [Mass/Vol]169 mg/jMSkgs85 - 99 mg/dLKeenan Private Hospital, KYInterpretation and review of laboratory resultsAbnormalAdena [facility]ayette [facility] Center- [place], KYPotassium [Moles/Vol]3.6 mmol/LLow3.7 - 5.3 mmol/LMBerger Hospital- [place], KYSodium [Moles/Vol] 138 mmol/L135 - 144 mmol/LMBerger Hospital- [place], KYUrea nitrogen [Mass/Vol]33 mg/dL High6 - 20 mg/dLKeenan Private Hospital, KYCB auto differentialon [id number] (Bld) [#/Vol]0.00 10*3/uLAdena Fayette Medical Center- [place], KYBasophils/100 WBC (Bld)0 %0 - 2 % [facility], KYDifferential TypeNOT REPORTEDAdena Fayette [facility] Center- [place], KYEosinophils (Bld) [#/Vol]0.00 10*3/uLAdena Fayette Medical Center- [place], KYEosinophils/100 WBC (Bld)0 %Low1 - 4 %[facility]- [place], KYErythrocyte distribution width (RBC) [Ratio]15.7 %High 11.8 - 14.4 %[facility]- [place], KYHematocrit (Bld) [Volume fraction]45.3 %36.3 - 47.1 %[place], KYHemoglobin (Bld) [Mass/Vol]14.0 g/dL11.9 - 15.1 g/dL [facility], NVImmature granulocytes (Bld) [#/Vol]0 %0[facility], [place] Immature granulocytes (Bld) [#/Vol]0.00 10*3/uLKeenan Private Hospital, [place] Interpretation and review of laboratory resultsAbnormalKeenan Private Hospital, [place] Lymphocytes (Bld) [#/Vol]0.44 10*3/uLLowKeenan Private Hospital, NVLymphocytes/100 WBC (Bld)4 %Low24 - 44 %[facility], NVMCH (RBC) [Entitic mass]27.0 pg25.2 - 33.5 pgHallett, KYMCHC (RBC) [Mass/Vol]30.9 g/dL28.4 - 34.8 g/dLHallett, KYMCV (RBC) [Entitic vol]87.3 fL82.6 - 102.9 fLHallett, [place] Monocytes (Bld) [#/Vol]0.22 10*3/[facility], NVMonocytes/100 WBC (Bld)2 %1 - 7 %[place], KYMorphology Emmett (Bld) [Interp]ANISOCYTOSIS PRESENT [place], KYPlatelet mean volume (Bld) [Entitic vol]9.4 fL8.1 - 13.5 fL [facility], NVPlatelets (Bld) [#/Vol]NOT REPORTEDHal[place], [place] Platelets (Bld) [#/Vol]270 10*3/uLKeenan Private Hospital, NVRBC (Bld) [#/Vol]5.19 10*6/uLHigh3.95 - 5.11 m/[facility], NVRBC morphology finding Nom (Bld) NOT REPORTEDKeenan Private Hospital, NVSegmented neutrophils/100 WBC (Bld)94 %High36 - 66 %[facility], NVSegs Uslinwry92.24HighKeenan Private Hospital, NVWBC (Bld) [#/Vol]10.9 10*3/uLKeenan Private Hospital, VENC[facility] HOSPITALBC (Bld) [#/Vol]0.0 10*3/uL0.0 per 100 WBCKeenan Private Hospital, NVWBC MorphologyNOT REPORTEDKeenan Private Hospital, NVEKG 12 Lead on 13-44-5656Brspmd Wzwa72OLYEciojMount Carmel Health System, NVP Fcky73tznvcolEmcybSycamore Medical Center, NVP-R Vfljsrzo446 [facility], KYQ-T Furnjcix567 [facility], KYQRS Aycbqesj87 [facility], NVQTc Calculation (Bazett)429 [facility], NVR Fajardo-82degrSycamore Medical Center, KYT Hjub66ifybpsfBiaekSycamore Medical Center, NVVentricular Pqok88ISTKvgupMount Carmel Health System, KYEdi, Mhpn Incoming Ekg Results From [facility] [place] - 07/21/2019 1:17 PM EDT Normal sinus rhythm Biatrial enlargement Indeterminate axis Pulmonary disease pattern Incomplete right bundle branch block Cannot rule out Inferior infarct , age undetermined Abnormal ECG No previous ECGs availableKeenan Private Hospital, KYNormal sinus rhythm Biatrial enlargement Indeterminate axis Pulmonary disease pattern Incomplete right bundle branch block Cannot rule out Inferior infarct , age undetermined Abnormal ECG No previousECGs availableKeenan Private Hospital, NVHEMOGLOBIN AND HEMATOCRIT, BLOODon [id number] (Bld) [Volume fraction]47.3 %High36.3 - 47.1 %[place], KYHemoglobin (Bld) [Mass/Vol]14.6 g/dL11.9 - 15.1 g/dLKeenan Private Hospital, [place] Interpretation and review of laboratory resultsAbnormalKeenan Private Hospital, NVMRSA DNA Probe, Nasalon [id number], DNA, NasalNEGATIVE: MRSA DNA not detected by nucleic acid amplification.NEGATIVE: MRSA DNA not detected by nucleic acid amplificatiHallett, KYComment on above: Results should be used as an adjunct to nosocomial control efforts to identify patients needing enhanced precautions. The test is not intended to identify patients with staphylococcal infections. Results should not be used to guide or monitor treatment for MRSA infections. Specimen Description.NASAL SWABKeenan Private Hospital, NVPOC Glucose Fingerstickon [id number] [Mass/Vol]191 mg/gOWcrt54 - 105 mg/dLKeenan Private Hospital, [place] Interpretation and review of laboratory resultsAbnoWilson Memorial Hospital, [place] Glucose [Mass/Vol]152 mg/kJQdof38 - 105 mg/dLKeenan Private Hospital, KYInterpretation and review of laboratory resultsAbnoWilson Memorial Hospital, KYGlucose [Mass/Vol] 207 mg/rGEiwr95 - 105 mg/dLKeenan Private Hospital, KYInterpretation and review of laboratory resultsAbnormCleveland Clinic [facility]mount [facility], KYGlucose [Mass/Vol]160 mg/aIIram55 - 105 mg/dLKeenan Private Hospital, KYInterpretation and review of laboratory results AbnormalKeenan Private Hospital, NVBasic Metabolic Panel w/ Reflex to MGon 07-20-2019 Anion gap [Moles/Vol]12 mmol/L9 - 17 mmol/LMMount Carmel Health System, KYBun/Cre RatioNOT REPORTEDKeenan [facility] Hospital, KYCalcium [Mass/Vol]8.4 mg/dLLow8.6 - 10.4 mg/dLKeenan Private Hospital, KYChloride [Moles/Vol]98 mmol/L98 - 107 mmol/[facility], [place] CO2 [Moles/Vol]26 mmol/L20 - 31 mmol/[facility], KYCreatinine [Mass/Vol] 0.67 mg/dL0.5 - 0.9 mg/dLKeenan Private Hospital, KYGFR >60>60 mL/min [facility], KYGFR Non->60>60 mL/minKeenan Private Hospital, [place] GFR/1.73 sq M predicted among non-blacks MDRD (S/P/Bld) [Vol rate/Area]NOT REPORTEDKe[facility]an [facility] Hospital, KYGFR/1.73 sq M predicted among non-blacks MDRD (S/P/Bld) [Vol rate/Area][facility], KYComment on above:Average GFR for 50-59 years old: 93 mL/min/1.73sq m Chronic Kidney Disease: <60 mL/min/1.73sq m Kidney failure: <15 mL/min/1.73sq m eGFR calculated using average adult body mass. Additional eGFR calculator available at: http://www.[employer]/multiple_crcl_2011.htm Glucose [Mass/Vol]190 mg/wLSqdg40 - 99 mg/dLAdena Fayette Medical Center- [place], KYPotassium [Moles/Vol]3.9 mmol/L3.7 - 5.3 mmol/LMBerger Hospital- [place], KYSodium [Moles/Vol]136 mmol/L135 - 144 mmol/LMBerger Hospital- [place], KYUrea nitrogen [Mass/Vol]30 mg/dLHigh6 - 20 mg/dLOhiohealth Doctors Hospital [place], KYCBC auto differentialon [id number] (Bld) [#/Vol]0.00 10*3/uLAdena Fayette Medical Center- [place], KYBasophils/100 WBC (Bld)0 %0 - 2 %[facility], KYDifferential TypeNOT REPORTEDOhiohealth Doctors Hospital [place], KYEosinophils (Bld) [#/Vol]0.00 10*3/[facility] [place], KYEosinophils/100 WBC (Bld)0 %Low1 - 4 % [facility]- [place], KYErythrocyte distribution width (RBC) [Ratio]15.5 %High11.8 - 14.4 %[facility] [place], KYHematocrit (Bld) [Volume fraction]44.6 %36.3 - 47.1 % [facility], KYHemoglobin (Bld) [Mass/Vol]13.8 g/dL11.9 - 15.1 g/dLOhiohealth Doctors Hospital [place], KYImmature granulocytes (Bld) [#/Vol]0.00 10*3/[facility]- [place], KYImmature granulocytes (Bld) [#/Vol]0 %0[facility]- [place], KYInterpretation and review of laboratory resultsAbnormalOhiohealth Doctors Hospital [place], KYLymphocytes (Bld) [#/Vol]0.44 10*3/uLLowAdena Fayette Medical Center- [place], KYLymphocytes/100 WBC (Bld)4 %Low24 - 44 %[facility]- [place], [facility] [facility] ([facility]) [Entitic mass]26.9 pg25.2 - 33.5 pgAdena Fayette [facility]- [place], [facility] (RBC) [Mass/Vol]30.9 g/dL28.4 - 34.8 g/dLAdena Fayette Medical Center- [place], [facility] (RBC) [Entitic vol]86.9 fL82.6 - 102.9 fLAdena Fayette Medical Center- [place], KYMonocytes (Bld) [#/Vol]0.11 10*3/uLAdena Fayette Medical Center- [place], NVMonocytes/100 WBC (Bld)1 %1 - 7 %[facility]- [place], NVMorphology Emmett (Bld) [Interp]ANISOCYTOSIS PRESENTAdena Fayette Medical Center- [place], NVPlatelet mean volume (Bld) [Entitic vol]9.4 fL8.1 - 13.5 fLAdena Fayette Medical Center- [place], NVPlatelets (Bld) [#/Vol]NOT REPORTEDAdena Fayette [facility]- [place], NVPlatelets (Bld) [#/Vol] 298 10*3/uLAdena Fayette [facility]- [place], NVRBC (Bld) [#/Vol]5.13 10*6/uLHigh3.95 - 5.11 m/uL [facility]- [place], NVRBC morphology finding Nom (Bld)NOT REPORTEDAdena Fayette [facility]- [place], NVSegmented neutrophils/100 WBC (Bld)95 %High36 - 66 %[facility]- [place], [place] Segs Uzrxicfg52.35HighAdena Fayette [facility]- [place], NVWBC (Bld) [#/Vol]10.9 10*3/uLAdena Fayette [facility]- [place], NVWBC (Bld) [#/Vol]0.0 10*3/uL0.0 per 100 WBCVeterans Health Administration [facility]- [place], NVWBC MorphologyNOT REPORTEDAdena Fayette [facility] Center- [place], NVEK 12 Leadon 89-25-1600Oulsxa Rate67 BPMVeterans Health Administration Health- [place], KYP Rnol84airvgqtHujgk Health- [place], NVP-R Rvddvgkg939 ms [facility]- [place], NVQ-T Dgmlbtwd255 [facility]- [place], KYQRS Ciqickwt06 [facility]- [place], NVQTc Calculation (Ara)431 msMMount Carmel Health System, KYR Fajardo-60 degreesKeenan Private Hospital, KYT Guex94yaupfpaDkipe Health- [place], NVVentricular Rate67 BPMKeenan Private Hospital, KYEdi, Mhpn Incoming Ekg Results From [facility] - 07/20/2019 1:04 PM EDT Normal sinus rhythm Possible Left atrial enlargement Left axis deviation Pulmonary disease pattern Abnormal ECG When compared with ECG of 24-JUN-2013 16:48, No significant change was foundKeenan Private Hospital, [facility]ormal sinus rhythm Possible Left atrial enlargement Left axis deviation Pulmonary disease pattern Abnormal ECG When compared with ECG of 24-JUN-2013 16:48, No significant change was found [facility], KYOtheron 14-31-1487Wxijlxojtodbbl and review of laboratory resultsAbLouis Stokes [facility], NVPOC Glucose Fingerstickon 87-91-8199Rkjxclu [Mass/Vol]217 mg/cMUbqm86 - 105 mg/dLKeenan Private Hospital, NVInterpretation and review of laboratory resultsAbGile, KYGlucose [Mass/Vol]204 mg/fRSzkl15 - 105 mg/dLKeenan Private Hospital, NVInterpretation and review of laboratory resultsAbLouis Stokes [facility], NVGlucose [Mass/Vol]189 mg/fOIfgc77 - 105 mg/dLKeenan Private Hospital, NVInterpretation and review of laboratory results AbnormalKeenan Private Hospital, NVGlucose [Mass/Vol]195 mg/qXXjtx80 - 105 mg/dLKeenan Private Hospital, NVInterpretation and review of laboratory resultsAbGile, KYGlucose [Mass/Vol]199 mg/rPPurm07 - 105 mg/dLKeenan Private Hospital, [place] Interpretation and review of laboratory resultsAbLouis Stokes [facility], [place] TRIGLYCERIDESon 39-27-1977Ikvjcsfqprjo [Mass/Vol]224 mg/dLHigh<150Hal[place], KYComment on above: Triglyceride Guidelines: <150 Desirable 150-199 Borderline 200-499 High >499 Very high Based on AHA Guidelines for fasting triglyceride, December 2011. Basic Metabolic Panel w/ Reflex to MGon 14-04-4078Pyomk gap [Moles/Vol]16 mmol/L 9 - 17 mmol/LMMount Carmel Health System, KYBun/Cre RatioNOT REPORTEDMerMultiCare [facility]- [place], [place] Calcium [Mass/Vol]8.6 mg/dL8.6 - 10.4 mg/dLAdena Fayette Medical Center- [place], KYChloride [Moles/Vol]97 mmol/LLow98 - 107 mmol/LMfostoria city hospital Health- [place], KYCO2 [Moles/Vol]24 mmol/L20 - 31 mmol/LMfostoria city hospital Health- [place], KYCreatinine [Mass/Vol]0.71 mg/dL0.5 - 0.9 mg/dLAdena Fayette Medical Center- [place], KYGFR >60>60 mL/minAdena Fayette Medical Center- [place], [place] GFR Non->60>60 mL/minAdena Fayette Medical Center- [place], KYGFR/1.73 sq M predicted among non-blacks MDRD (S/P/Bld) [Vol rate/Area]NOT REPORTEDKeenan Private Hospital, [place] GFR/1.73 sq M predicted among non-blacks MDRD (S/P/Bld) [Vol rate/Area][facility], KYComment on above:Average GFR for 50-59 years old: 93 mL/min/1.73sq m Chronic Kidney Disease: <60 mL/min/1.73sq m Kidney failure: <15 mL/min/1.73sq m eGFR calculated using average adult body mass. Additional eGFR calculator available at: http://www.[employer]/multiple_crcl_2012.htm Glucose [Mass/Vol]178 mg/mWIhmh01 - 99 mg/dLKeenan Private Hospital, KYPotassium [Moles/Vol]4.0 mmol/L3.7 - 5.3 mmol/LMBerger Hospital- [place], KYSodium [Moles/Vol]137 mmol/L135 - 144 mmol/LMfostoria city hospital Health- [place], KYUrea nitrogen [Mass/Vol]23 mg/dLHigh6 - 20 mg/dLAdena Fayette Medical Center- [place], KYC-Reactive Proteinon 21-21-4572UXY [Mass/Vol]55.6 mg/LHigh0 - 5 mg/LMfostoria city hospital Health- [place], KYCBC auto differentialon 07-19-2019 Basophils (Bld) [#/Vol]0.00 10*3/uLAdena Fayette Medical Center- [place], KYBasophils/100 WBC (Bld)0 %0 - 2 %[facility], KYDifferential TypeNOT REPORTEDKeenan Private Hospital, [place] Eosinophils (Bld) [#/Vol]0.00 10*3/[facility] [place], KYEosinophils/100 WBC (Bld)0 %Low1 - 4 %[facility], NVErythrocyte distribution width (RBC) [Ratio]15.2 %High11.8 - 14.4 %[facility], KYHematocrit (Bld) [Volume fraction]47.7 %High36.3 - 47.1 %[facility], CARLOSHemoglobin (Bld) [Mass/Vol] 14.6 g/dL11.9 - 15.1 g/dLKeenan Private Hospital, CARLOSImmature granulocytes (Bld) [#/Vol] 0 %0[facility], CARLOSImmature granulocytes (Bld) [#/Vol]0.00 10*3/[facility], CARLOSInterpretation and review of laboratory resultsAbnormalKeenan Private Hospital, CARLOSLymphocytes (Bld) [#/Vol]0.89 10*3/uLLowKeenan Private Hospital, [place] Lymphocytes/100 WBC (Bld)9 %Low24 - 44 %[facility], KYMCH (RBC) [Entitic mass]27.1 pg25.2 - 33.5 pgKeenan Private Hospital, NVMCHC (RBC) [Mass/Vol]30.6 g/dL28.4 - 34.8 g/dLKeenan Private Hospital, NVMCV (RBC) [Entitic vol]88.7 fL82.6 - 102.9 fL [facility], KYMonocytes (Bld) [#/Vol]0.10 10*3/[facility], [place] Monocytes/100 WBC (Bld)1 %1 - 7 %[facility], NVMorphology Emmett (Bld) [Interp]ANISOCYTOSIS PRESENTKeenan Private Hospital, NVPlatelet mean volume (Bld) [Entitic vol]9.5 fL8.1 - 13.5 fLKeenan Private Hospital, KYPlatelets (Bld) [#/Vol]NOT REPORTEDKeenan Private HospitalCARLOSPlatelets (Bld) [#/Vol]307 10*3/uLKeenan Private Hospital NVRBC (Bld) [#/Vol]5.38 10*6/uLHigh3.95 - 5.11 m/uLKeenan Private Hospital [facility] morphology finding Nom (Bld)NOT REPORTEDKeenan Private HospitalCARLOSgmented neutrophils/100 WBC (Bld)90 %High36 - 66 %[facility] HospitalCARLOSSegs Absolute8.91 HighKeenan Private Hospital, CARLOSWBC (Bld) [#/Vol]9.9 10*3/uLKeenan Private Hospital, CARLOSWBC (Bld) [#/Vol]0.0 10*3/uL0.0 per 100 WBCKeenan Private Hospital NVWBC MorphologyNOT REPORTEDOhiohealth Doctors Hospital CARLOS GUTIERREZCOVID-1907-69-1111CRGF-CoV-2Not DetectedNot DetectedKeenan Private HospitalCARLOSComment on above: The specimen is NEGATIVE for SARS-CoV-2, the novel coronavirus associated with COVID-19. A negative result does not rule out COVID-19. This test has been authorized by the FDA under an Emergency Use Authorization (EUA) for use by authorized laboratories. Fact sheet for Healthcare Providers: https://www.fda.gov/media/396476/download Fact sheet for Patients: https://www.fda.gov/media/800626/download METHODOLOGY: RT-PCR SARS-CoV-2, PCRKeenan Private Hospital [facility].NASOPHARYNGEAL SWABKeenan Private HospitalCARLOSCulture, Blood 1on 00-57-6681AyerxzbDP SAMPLE RECEIVEDMercy Health St. [facility] CARLOS Special RequestsNOT REPORTEDKeenan Private HospitalCARLOSSpecimen Description.BLOODKeenan Private HospitalCARLOSLactic acid, plasmaon 13-80-8836Avjpytl [Moles/Vol]NOT REPORTED mmol/LMercBaptist Hospital, CARLOSLactic Acid, Whole Blood2.1 mmol/L0.7 - 2.1 mmol/L [facility], CARLOSOtheron 02-94-6477Kvmwrvmavoqtkm and review of laboratory resultsAbnormalKeenan Private Hospital, NVPO Glucose Fingerstickon 51-89-4941Kzeovlf [Mass/Vol]208 mg/oZBcho69 - 105 mg/dLKeenan Private Hospital, NVInterpretation and review of laboratory resultsAbnormalKeenan Private Hospital, NVGlucose [Mass/Vol]188 mg/iSNslg45 - 105 mg/dLKeenan Private Hospital, NVInterpretation and review of laboratory resultsAbnormalKeenan Private Hospital, NVGlucose [Mass/Vol]181 mg/pYMhmh63 - 105 mg/dLKeenan Private Hospital, NVInterpretation and review of laboratory results AbnormalKeenan Private Hospital, NVRespiratory Virus PCR Panelon 62-32-0482Uqgnhvqjpe PCRNot DetectedNot DetectedKeenan Private Hospital, NVB Pertussis by PCRNot DetectedNot DetectedKeenan Private Hospital, NVBordetella ParapertussisNot DetectedNot Detected [facility], NVChlamydia pneumoniae By PCRNot DetectedNot DetectedKeenan Private Hospital, NVCoronavirus 229E PCRNot DetectedNot DetectedKeenan Private Hospital, [place] Comment on above:Coronoviruses detected by this panel are those associated with the clinical common cold. This test will not detect 9565-HOTU-RAM-2 or other novel coronaviruses. Coronavirus HKU1 PCRNot DetectedNot DetectedKeenan Private Hospital, NVComment on above:Coronoviruses detected by this panel are those associated with the clinical common cold. This test will not detect 6691-ZWRE-YMB-2 or other novel coronaviruses. Coronavirus NL63 PCRNot DetectedNot DetectedHallett, KYComment on above:Coronoviruses detected by this panel are those associated with the clinical common cold. This test will not detect 7996-NNVJ-RHQ-2 or other novel coronaviruses. Coronavirus OC43 PCRNot DetectedNot DetectedKeenan Private Hospital, NVComment on above:Coronoviruses detected by this panel are those associated with the clinical common cold. This test will not detect 7623-YRPK-JFW-2 or other novel coronaviruses. Human Metapneumovirus PCRNot DetectedNot DetectedKeenan Private Hospital, NVInfluenza A by PCRNot DetectedNot DetectedKeenan Private Hospital, NVInfluenza A H1 (2009) PCRNOT REPORTEDNot DetectedKeenan Private Hospital, KYInfluenza A H1 PCRNOT REPORTEDNot DetectedMercy Health- [...] [place] Rhino/Enterovirus PCRNot DetectedNot DetectedMercy Health- [place], NVSpecimen Description.NASOPHARYNGEAL SWABMercy Health- [place], [facility] with Reflexon 07-19-2019 TSH Qn0.95 m[IU]/LMercy Health- [place], KYAnion Gap (Calc) POCon 37-04-6676Vemms gap [Moles/Vol]10 mmol/L7 - 16 mmol/LMercy Health- [place], NVArterial Blood Gas, POCon 91-05-0514Utakd TestNOT REPORTEDMercy Health- [place], NVaPTT Coag (Bld) [Time]NOT REPORTEDMercy [facility]- [place], LFKGD0DNP REPORTEDMer[facility]- [place], KYModeNOT REPORTED [facility]- [place], KYNegative Base Excess, ArtNOT REPORTEDMercy [facility]- [place], NVO2 Device/Flow/%NOT REPORTEDMercy Health- [place], KYOxygen saturation in Blood92 %Low94 - 98 %[facility]- [place], NVPOC MVC441.9 mmol/LHigh21 - 28 mmol/LMercy Health- [place], NVPO pTR633.4[facility]- [place], [facility] pCO2 TempNOT REPORTEDmm HgMercy Health- [place], NVPO pH7.455HighMercy Health- [place], NVPO pH TempNOT REPORTEDMercy Health- [place], [facility] PO261.7LowMercy Health- [place], [facility] pO2 TempNOT REPORTEDmm Hg [facility]- [place], NVPositive Base Excess, Uqe5QxjxAenaz Health- [place], KYSale SiteNOT REPORTEDMercy Health- [place], KYTCO2 (calc), Art33 mmol/LHigh22 - 29 mmol/L [facility] [place], KYAllen TestNOT REPORTEDMer[facility]- [place], KYaPTT Coag (Bld) [Time]NOT REPORTEDMer[facility]- [place], EYHLO7SPH REPORTEDMer[facility]- [place], KYMode NOT REPORTEDMer[facility]- [place], KYNegative Base Excess, ArtNOT REPORTEDMer[facility]- [place], KYO2 Device/Flow/%NOT REPORTEDMer[facility]- [place], KYOxygen saturation in Blood99 %High94 - 98 %[facility] [place], KYPOC QGM856.1 mmol/LHigh21 - 28 mmol/LMercy Health- [place], KYPOC vGC948.9HighMercy Health- [place], NVPOC pCO2 TempNOT REPORTEDmm HgMercy Health- [place], KYPOC pH7.353[facility]- [place], KYPOC pH TempNOT REPORTEDMercy Health- [place], KYPOC PA7368.5HighMercy Health- [place], NVPOC pO2 TempNOT REPORTEDmm HgMercy Health- [place], KYPositive Base Excess, Njc7ByakAeiis Health- [place], [facility] SiteNOT REPORTEDMercy Health- [place], KYTCO2 [...] predicted among non-blacks MDRD (S/P/Bld) [Vol rate/Area] [facility], NVComment on above:Average GFR for 50-59 years old: 93 mL/min/1.73sq m Chronic Kidney Disease: <60 mL/min/1.73sq m Kidney failure: <15 mL/min/1.73sq m eGFR calculated using average adult body mass. Additional eGFR calculator available at: http://www.[employer]/multiple_crcl_2012.htm GFR/1.73 sq M predicted among non-blacks MDRD (S/P/Bld) [Vol rate/Area]NOT REPORTEDKeenan Private Hospital, NVGlucose [Mass/Vol]149 mg/cOPelc01 - 99 mg/dLKeenan Private Hospital, NVInterpretation and review of laboratory resultsAbnoWilson Memorial Hospital, NVPotassium [Moles/Vol]3.4 mmol/LLow3.7 - 5.3 mmol/[facility], KYComment on above:ADDED ONSodium [Moles/Vol]146 mmol/NPzex590 - 144 mmol/L [facility], NVUrea nitrogen [Mass/Vol]12 mg/dL6 - 20 mg/dLKeenan Private Hospital, NVBeta-Hydroxybutyrateon 67-11-1916Zile-Hydroxybutyrate0.51 mmol/LHigh0.02 - 0.27 mmol/[facility], NVInterpretation and review of laboratory results AbnormalKeenan Private Hospital, NVCALCIUM, IONIC (POC)on 27-50-5580HVA Ionized Calcium 1.17 mmol/L1.15 - 1.33 mmol/LMMount Carmel Health System, KYCALCIUM, IONIZEDon 07-18-2019 Calcium [Mass/Vol]1.11 mmol/LLow1.13 - 1.33 mmol/[facility], NV Interpretation and review of laboratory resultsAbnoWilson Memorial Hospital, [place] CHLORIDE (POC)on 30-33-2455Slrombfo [Moles/Vol]95 mmol/LLow98 - 107 mmol/[facility], KYCreatinine W/GFR Point of Careon 57-26-1416Mlrvlmecgq [Mass/Vol] mg/dLLow0.51 - 1.19 mg/dLKeenan Private Hospital, KYGFR Non- AmericanCANNOT BE CALCULATED>60 mL/minKeenan Private Hospital, KYGFR/1.73 sq M predicted among non-blacks MDRD (S/P/Bld) [Vol rate/Area][facility], NVComment on above:Average GFR for 50-59 years old: 93 mL/min/1.73sq m Chronic Kidney Disease: <60 mL/min/1.73sq m Kidney failure: <15 mL/min/1.73sq m eGFR calculated using average adult body mass. Additional eGFR calculator available at: http://www.[employer]/Regen_crcl_2012.htm GFR/1.73 sq M predicted among non-blacks MDRD (S/P/Bld) [Vol rate/Area]CANNOT BE CALCULATED>60 mL/minKeenan Private Hospital, KYFERRITINon 85-98-8163Rvuuqigc [Mass/Vol] 28 ug/L13 - 150 ug/LMMount Carmel Health System, KYHemoglobin and hematocrit, bloodon 41-31-1753Vjioibzwmi (Bld) [Volume fraction]50 %High36 - 46 %[facility], NVHemoglobin (Bld) [Mass/Vol]16.9 g/aKDnqm42 - 16 g/dLKeenan Private Hospital, [place] LACTATE DEHYDROGENASEon 63-40-5594Thlttsefadwtmu and review of laboratory resultsAbnormalKeenan Private Hospital, BHHU579 U/MNktc604 - 214 U/LMMount Carmel Health System, KYLactic Acid, POCon 45-28-3410PDS Lactic Acid0.39 mmol/LLow0.56 - 1.39 mmol/L [facility], NVLegionella antigen, urineon 72-50-6863Kalupmjjmt Pneumophilia Ag, UrineNegativeKeenan Private Hospital, KYComment on above:L. pneumophila serogroup 1 antigen not detected. A negative result does not exclude infection with Leginella pnemophila serogroup 1 nor does it rule out other microbial-caused respiratory infections of disease caused by other serogroups of Legionella pneumophila. MAGNESIUMon 36-79-9566Fvgcqfrro [Mass/Vol]1.9 mg/dL1.6 - 2.6 mg/dLMercy Health- [place], KYMRSA DNA Probe, Nasalon 27-64-9772FZOE, DNA, NasalNEGATIVE: MRSA DNA not detected by [...] Specimen Description.NASAL SWABMercy Health- [place], KYMicroscopic Urinalysison 35-54-9924Uzctdgwvr, UANOT REPORTEDNoneMercy Health- [place], KYBacteria, UANOT REPORTEDNoneMercy [...] KY-[facility]- [place], KYMixed Venous Gas, POCon 89-42-3322Oaqij TestNOT REPORTEDMercy Health- [place], KYaPTT Coag (Bld) [Time]NOT REPORTEDMercy Health- [place], NUIPE9AMJ REPORTEDMercy Health- [place], KYHCO3, Mixed38.6 mmol/LHigh23 - 29 mmol/LMercy Health- [place], KYMode NOT REPORTEDMercy Health- [place], KYNegative Base Excess, MixedNOT REPORTEDMercy Health- [place], KYO2 Device/Flow/%NOT REPORTEDMercy Health- [place], KYOxygen saturation in Blood82 %High60 - 80 %[facility]- [place], KYPCO2, Knkbb35Qshrxyovqt highVeterans Health Administration Health- [place], KYPH MIXED7.302LowMerMultiCare [facility]- [place], KYPO2, Mixed53.5HighAdena [facility]ayette [facility]- [place], KYPOC pCO2 TempNOT REPORTEDmm HgAdena Fayette [facility] Center- [place], KYPOC pH TempNOT REPORTEDAdena [facility]- [place], KYPOC pO2 TempNOT REPORTEDmm HgAdena [facility]- [place], [place] Positive Base Excess, Jmbnx6XjbxOcgzf Health- [place], KYSample SiteRight Radial ArteryAdena Fayette Medical Center- [place], KYtCO2, Mixed41 mmol/LHigh24 - 30 mmol/LMBerger Hospital- [place], KYNotification Panel, POCon 99-04-3032FkhbtoXmeqjylgialjfoiYgbny Health- [place], NVDate/Time07/18/201902:24:00[facility], KYNOTIFYdCleveland Clinic [facility]- [place], [place] READ BACKYesMBerger Hospital- [place], KYOtheron 67-84-7834Blqbgbxaxaebxb and review of laboratory resultsAbnoWilson Memorial Hospital, NVInterpretation and review of laboratory resultsAbnoWilson Memorial Hospital, NVInterpretation and review of laboratory resultsAbnoWilson Memorial Hospital, [facility] Glucose Fingerstickon 85-72-3929Ogdivsb [Mass/Vol]164 mg/aCAnxh99 - 105 mg/dLKeenan Private Hospital, [place] Interpretation and review of laboratory resultsAbnoWilson Memorial Hospital, [place] Glucose [Mass/Vol]113 mg/rXRzlq18 - 105 mg/dLKeenan Private Hospital, NVInterpretation and review of laboratory resultsAbnoWilson Memorial Hospital, NVGlucose [Mass/Vol] 135 mg/vIUsdw10 - 105 mg/dLKeenan Private Hospital, NVInterpretation and review of laboratory resultsAbLouis Stokes [facility], NVGlucose [Mass/Vol]124 mg/hNCfum41 - 105 mg/dLKeenan Private Hospital, NVInterpretation and review of laboratory results AbnormalKeenan Private Hospital, NVPOCT Glucoseon 17-83-4395Imeqfyo [Mass/Vol]143 mg/dL High74 - 100 mg/dLMercy Health- [place], KYGlucose [Mass/Vol]160 mg/uIFyfp48 - 100 mg/dLMercy Health- [place], KYGlucose [Mass/Vol]135 mg/jIOgdy90 - 100 mg/dLMercy Health- [place], KYPOTASSIUM (POC)on 60-42-9139Kvjvkllek [Moles/Vol]3.4 mmol/LLow3.5 - 4.5 mmol/LMercy Health- [place], KYSODIUM (POC)on 91-60-1384Bqgmlu [Moles/Vol]144 mmol/L138 - 146 mmol/LMercy Health- [place], KYStrep Pneumoniae Antigenon 07-18-2019 Source.CLEAN CATCH URINEMercy Health- [place], KYStrep pneumo AgNegativeMercy Health- [place], KYComment on above:Strep pneumoniae antigen not detectedTroponinon 15-01-2107Yesnrnrf I.cardiac [Mass/Vol]NOT REPORTEDMer Health- [place], KYTroponin T.cardiac [Mass/Vol]NOT REPORTED<0.03 ng/mLMercy Health- [place], KYTroponin, High Yvgjzdscyqb57 ng/L0 - 14 ng/LMercy Health- [place], KYComment on above: High Sensitivity Troponin values cannot be compared with other Troponin methodologies. Patients with high levels of Biotin oral intake (i.e >5mg/day) may have falsely decreased Troponin levels. Samples collected within 8 hours of biotin intake may require additional information for diagnosis. URINALYSISon 14-43-5487Dvndrttni UrineNegativeAbnormalNEGATIVEMercy Health- [place], KYColor, UADARK YELLOWAbnormalYELLOWMercy Health- [place], KYGlucose, UrNegative NEGATIVEMercy Health- [place], KYInterpretation and review of laboratory results AbnormalMercy Health- [place], KYKetones Ql (U)NegativeNEGATIVEMercy Health- [place], [place] Leukocyte esterase Test strip Ql (U)SMALLAbnormalNEGATIVEMercy Health- [place], [place] Nitrite, UrineNegativeNEGATIVEMercy Health- [place], KYpH, UA5.0[facility]- [place], [place] Protein (U) [Mass/Vol]2+AbnormalNEGATIVEMercy Health- [place], KYSpecific [place], UA 1.041HighMercy Health- [place], KYTurbidity UACLOUDYAbnormalCLEARKeenan Private Hospital, [place] Urinalysis CommentsNOT REPORTEDKeenan Private Hospital, CARLOSUrine HgbSMALLAbnormal NEGATIVEKeenan Private Hospital, NVUrobilinogen, UrineNormalNormalKeenan Private Hospital, CARLOS XR ABDOMEN FOR NG/OG/NE TUBE PLACEMENTon 75-18-2481Lux orogastric tube is in the distal stomach.[facility] Private HospitalCARLOSEXAMINATION: ONE SUPINE XRAY VIEW(S) OF THE ABDOMEN [...] evidence of bowel obstruction. Cholecystectomy clips are present.Ke[facility] Private HospitalAudelia Mhpn Incoming Radiant Results From [employer] - 07/18/2019 10:46 AM EDT EXAMINATION: ONE [...] orogastric tube is in the distal stomach. [facility] HospitalCARLOSXR CHEST PORTABLEon 43-98-0289Ii obvious pneumothorax after central line placementKeenan Private Hospital, Noellei, Mhpn Incoming Radiant Results From [employer] - 07/18/2019 7:49 AM EDT EXAMINATION: ONE [...] left, similar to prior.[facility]- [place], KYAmmoniaon 01-67-3069Ecpinnq (P) [Mass/Vol]29 umol/L11 - 51 umol/L [facility] [place], KYBlood Gas, Arterialon 09-88-2637Urbej TestPASSMercy Health- [place], KYaPTT Coag (Bld) [Time]37 sMercy Health- [place], KYCarboxyhemoglobinNOT REPORTED0 - 5 %[facility]- [place], MGNGI5VKG REPORTEDMercy Health- [place], KYHCO3, Hptwurpi69.5 mmol/LHigh22 - 26 mmol/LMercy [facility]- [place], KYInterpretation and review of laboratory resultsAbnormalMercy Health- [place], KYMethemoglobinNOT REPORTED0 - 1.9 %[facility] [place], KYModeNOT REPORTEDMer[facility]- [place], [place] Negative Base Excess, ArtNOT REPORTED0 - 2 mmol/LMercy [facility]- [place], [place] NOTIFICATIONNOT REPORTEDMercy Health- [place], KYNOTIFICATION TIMENOT REPORTEDMercy Health- [place], KYO2 Device/Flow/%ROOM AIRMercy Health- [place], KYOxygen saturation in Blood64.5 %Low95 - 98 %[facility] [place], KYOxyhemoglobinNOT WWQDMRRY65 - 98 % [facility] [place], KYpCO2, Art, Temp AdjNOT REPORTEDMercy Health- [place], KYpCO2, Cvpycfmh51.4Critically highMercy Health- [place], KYPeep/CpapNOT REPORTEDMer[facility]- [place], KYpH, Art, Temp AdjNOT REPORTEDMer[facility]- [place], KYpH, Arterial7.321 LowMercy Health- [place], KYpO2, Art, Temp AdjNOT REPORTEDAdena [facility]- [place], KYpO2, Pezuobtf75.1Critically lowVeterans Health Administration Health- [place], KYPositive Base Excess, Art4.3 mmol/LHigh0 - 2 mmol/LMercy [facility]- [place], KYPSVNOT REPORTEDAdena [facility]- [place], KYPt. PositionSEMI-FOWLERSAdena Fayette Medical Center- [place], KYSample SiteRight Brachial ArteryAdena Fayette Medical Center- [place], KYSet RateNOT REPORTEDAdena Fayette [facility] Center- [place], KYText for RespiratoryNOT REPORTEDAdena Fayette [facility]- [place], KYTotal HbNOT RJSIQQMO25 - 16 g/dlAdena Fayette Medical Center- [place], [place] Total RateNOT REPORTEDAdena [facility]- [place], KYVTNOT REPORTEDAdena [facility]ayette [facility]- [place], [place] Brain Natriuretic Peptideon 01-91-0235Wuzmwfzkaot peptide B (Bld) [Mass/Vol]1007 pg/mLHigh<300A[facility]- [place], KYComment on above:Pro-BNP results cannot be compared to BNP results.Natriuretic peptide B (Bld) [Mass/Vol]Pro-BNP Reference Range:[facility], NVComaspirus ontonagon hospital on above: Rule Out: <300 [place] Zone: Age <50 300-450 Age 50-75 300-900 Age >75 300-1800 Usually represents mild to moderate HF but other cardiopulmonary causes cannot be ruled out. Rule In: Age <50 >450 Age 50-75 >900 Age >75 >1800 CBC Auto Differentialon 81-60-5190Dlcwmbvtz (Bld) [#/Vol]0.05 10*3/uLAdena Fayette Medical Center- [place], KYBasophils/100 WBC (Bld)1 %0 - 2 %[facility]- [place], KYDifferential TypeNOT REPORTEDAdena Fayette [facility] Center- [place], KYEosinophils (Bld) [#/Vol]0.36 10*3/uLAdena Fayette Medical Center- [place], KYEosinophils/100 WBC (Bld)4 %1 - 4 %[facility] [place], NVErythrocyte distribution width (RBC) [Ratio]15.7 %High11.8 - 14.4 %[facility], [place] Hematocrit (Bld) [Volume fraction]43.4 %36.3 - 47.1 %[facility], [place] Hemoglobin (Bld) [Mass/Vol]13.7 g/dL11.9 - 15.1 g/dLHallett, KYImmasalem regional medical center granulocytes (Bld) [#/Vol]0.03 10*3/uLKeenan Private Hospital, NVImmature granulocytes (Bld) [#/Vol]0 %0[place], KYInterpretation and review of laboratory resultsAbnormalHallett, KYLymphocytes (Bld) [#/Vol]1.60 10*3/uLKeenan Private [facility], NVLymphocytes/100 WBC (Bld)17 %Low24 - 43 %[facility]H (RBC) [Entitic mass]27.6 pg25.2 - 33.5 pgHallett, KYMCHC (RBC) [Mass/Vol]31.6 g/dL28.4 - 34.8 g/dLHallett, KYMCV (RBC) [Entitic vol] 87.5 fL82.6 - 102.9 fLHallett, KYMonocytes (Bld) [#/Vol]0.70 10*3/uL [facility] NVMonocytes/100 WBC (Bld)7 %3 - 12 %[place], [place] Platelet mean volume (Bld) [Entitic vol]9.0 fL8.1 - 13.5 fLHallett, [place] Platelets (Bld) [#/Vol]NOT REPORTEDHallett, KYPlatelets (Bld) [#/Vol] 277 10*3/uLKeenan [facility] Hospital, NVRBC (Bld) [#/Vol]4.96 10*6/uL3.95 - 5.11 m/uL [place], KYRBC morphology finding Nom (Bld)NOT REPORTEDHallett, KYSegmented neutrophils/100 WBC (Bld)71 %High36 - 65 %[place], [place] Segs Absolute6.82[facility], NVWBC (Bld) [#/Vol]0.0 10*3/uL0.0 per 100 WBC [place], KYWBC (Bld) [#/Vol]9.6 10*3/[facility], KYWBC MorphologyNOT REPORTEDKeenan Private Hospital, KYCKon [id number] CK70 U/L26 - 192 U/[facility], KYCT Chest Pulmonary Embolism W Contraston 07-17-2019 [...] Tissues/Bones: No acute bone or soft tissue abnormality.[facility], KYMild edema. Nonspecific peripheral infiltrates appear somewhat improved. Coronary artery disease. RECOMMENDATIONS: Imaging features can be seen with viral pneumonia, though are nonspecific and can occur with a variety of infectious and noninfectious processes. [facility]In[facility], [place]idget[place] Win Incoming Radiant Results From [employer] - 07/17/2019 8:06 PM EDT EXAMINATION: CTA [...] variety of infectious and noninfectious processes. PneInd [facility], KYCT Head WO Contraston [id number]: CT OF THE HEAD WITHOUT CONTRAST 07/17/2019 [...] Moderate to severe atherosclerotic calcifications. No acute fracture.[facility] HospitalAmy acute findings in the head.[facility], Bridgette Win Incoming Radiant Results From [employer]/Pacs - 07/17/2019 6:18 PM EDT EXAMINATION: CT [...] IMPRESSION: No acute findings in the head. [facility], KYComprehensive Metabolic Panel w/ Reflex to MGon 07-17-2019 Albumin [Mass/Vol]3.7 g/dL3.5 - 5.2 g/dLKeenan Private Hospital, KYAlbumin/Globulin [Mass ratio]1.2 {ratio}[facility], KYALP [Catalytic activity/Vol]93 U/L35 - 104 U/LMMount Carmel Health [facility], KYALT [Catalytic activity/Vol]11 U/L5 - 33 U/LMMount Carmel Health System, KYAnion gap [Moles/Vol]12 mmol/L9 - 17 mmol/LMMount Carmel Health System, KYAST [Catalytic activity/Vol]12 U/L<32[facility], KYBilirubin Ql (U)0.26 mg/dL Low0.3 - 1.2 mg/dLMercy Health- [place], KYBun/Cre Amfku14AccuVraxv [facility]- [place], [place] Calcium [Mass/Vol]9.1 mg/dL8.6 - 10.4 mg/dLAdena Fayette [facility] Center- [place], KYChloride [Moles/Vol]99 mmol/L98 - 107 mmol/LMfostoria city hospital Health- [place], KYCO2 [Moles/Vol]29 mmol/L 20 - 31 mmol/LMthe university of [facility]led[facility] medical centery [facility]- [place], KYCreatinine [Mass/Vol]0.57 mg/dL0.5 - 0.9 mg/dL [facility]- [place], KYGFR >60>60 mL/minAdena Fayette [facility]- [place], KYGFR Non->60>60 mL/minAdena [facility]- [place], KYGlucose [Mass/Vol]126 mg/dL High70 - 99 mg/dLAdena Fayette Medical Center- [place], KYPotassium [Moles/Vol]4.2 mmol/L3.7 - 5.3 mmol/LMthe university of [facility] centery [facility]- [place], KYProtein [Mass/Vol]6.7 g/dL6.4 - 8.3 g/dLAdena Fayette [facility] Center- [place], KYSodium [Moles/Vol]140 mmol/L135 - 144 mmol/LMBerger Hospital- [place], KYUrea nitrogen [Mass/Vol]13 mg/dL6 - 20 mg/dLAdena Fayette Medical Center- [place], KYD-dimer, quantitative on 39-82-6089Q-Dimer, Quant0.97[facility], KYComment on above: Elevated levels of D [...] of 98%). Interpretation and review of laboratory resultsAbnormalVeterans Health Administration Health- [place], [place] Ethanolon 22-31-4700Ddexqzf [Mass/Vol]mg/dL<10 mg/dLAdena Fayette Medical Center- [place], KYEthanol percent<0.010<0.010 %[facility]- [place], KYMetabolic Panelon 56-63-4475GTT/1.73 sq M predicted among non-blacks MDRD (S/P/Bld) [Vol rate/Area][facility], [place] Comment on above:Stage 1: Some kidney damage [...] body mass. Additional eGFR calculator available at: http://www.[employer]/multiple_crcl_2012.htm Microscopic Urinalysison 52-60-9180Laqgbeyqi, UANOT REPORTEDNoneMey Health- [place], KYBacteria, UANOT REPORTEDNoneMey Health- [place], KYCasts UANOT REPORTED/LPF [facility]- [place], KYCrystals, UANOT REPORTEDNone /HPFMercy Health- [place], [place] Epithelial Cells UANoneMemercy health lorain hospital Health- [place], KYMucus, UANOT REPORTEDNoneMey Health- [place], KYOther Observations UANOT REPORTEDNOT REQ.[facility]- [place], KYRBC (U) [#/Vol]0 TO 2[facility]- [place], KYRenal Epithelial, UANOT REPORTED0 /HPFMercy Health- [place], KYTrichomonas, UANOT REPORTEDNoneMercy Health- [place], KYWBC, UA0 TO 2 [facility]- [place], KYYeast, UANOT REPORTEDNoneMemercy health lorain hospital [facility]- [place], [place]-[facility]- [place], KYOtheron 97-26-9550Qtditlcvtwkniw and review of laboratory resultsAbnormal [facility]- [place], KYProtime-INRon 30-21-9832CDA Coag (PPP) [Relative time]1.0 {INR}[facility]- [place], NVPT Coag (PPP) [Time]10.6 sMBerger Hospital- [place], NVTroponin on [id number] I.cardiac [Mass/Vol]NOT REPORTEDKe[facility]an [facility], [place] Troponin T.cardiac [Mass/Vol]NOT REPORTED<0.03 ng/mLMercy Health- [place], [...] information for diagnosis. Urinalysis Reflex to Cultureon [id number] UrineNegativeNEGATIVEMercy Health- [place], KYColor, UAYELLOWYELLOWMercy Health- [place], KYGlucose, UrNegative NEGATIVEMercy Health- [place], KYInterpretation and review of laboratory results AbnormalMercy Health- [place], KYKetones Ql (U)NegativeNEGATIVEMercy Health- [place], [place] Leukocyte esterase Test strip Ql (U)NegativeNEGATIVEMercy Health- [place], KYNitrite, UrinePositiveAbnormalNEGATIVEMercy Health- [place], KYpH, UA6.0[facility]- [place], [place] Protein (U) [Mass/Vol]NegativeNEGATIVEMercy Health- [place], KYSpecific [place], UA 1.010[facility]- [place], KYTurbidity UACLEARCLEARMercy Health- [place], KYUrinalysis CommentsNOT REPORTEDMercy Health- [place], KYUrine HgbNegativeNEGATIVEMercy Health- [place], KYUrobilinogen, UrineNormalNormalMercy Health- [place], KYUrine Drug Screenon [id number] Screen, UrNegativeNEGATIVEMercy Health- [place], KYBarbiturate Screen, UrNegativeNEGATIVEMercy Health- [place], KYBenzodiazepine Screen, Urine PositiveAbnormalNEGATIVEMercy Health- [place], KYBuprenorphine UrineNegativeNEGATIVE [facility]- [place], KYCannabinoid Scrn, UrNegativeNEGATIVEMercy Health- [place], [place] Cocaine Metabolite, UrineNegativeNEGATIVEMercy Health- [place], KYInterpretation and review of laboratory resultsAbnormalMercy Health- [place], KYMDMA, UrineNOT REPORTED NEGATIVEMercy Health- [place], KYMethadone Screen, UrineNegativeNEGATIVEMercy Health- [place], KYMethamphetamine, UrineNegativeNEGATIVEMercy Health- [place], KYOpiates, Urine NegativeNEGATIVEMercy Health- [place], KYOxycodone Screen, UrNegativeNEGATIVETuscarawas Hospitalcy Health- [place], KYPhencyclidine, UrineNegativeNEGATIVEVeterans Health Administration Health- [place], [place] Propoxyphene, UrineNegativeNEGATIVETuscarawas Hospitalcy Health- [place], KYTest InformationNOT REPORTEDAdena [facility]- [place], KYTricyclic Antidepressants, UrineNegativeNEGATIVE [facility]- [place], KYComment on above:Drug screen results are to be used for medical purposes only. All positive results are unconfirmed. Testing for employment or legal uses should be sent to a reference laboratory for confirmation. XR CHEST PORTABLEon [id number], Mhpn Incoming Radiant Results From [employer]/Pacs - [...] is suspected to be atelectasis or scarring. [facility], KYMild pulmonary edema. Small linear left lower lobe opacity is suspected to be atelectasis or scarring.[facility]- [place], KYEXAMINATION: ONE X-RAY VIEW OF THE CHEST 07/17/2019 6:10 pm COMPARISON: April 21, 2019 HISTORY: ORDERING SYSTEM PROVIDED HISTORY: Fall TECHNOLOGIST PROVIDED HISTORY: Fall FINDINGS: Rotated positioning. No focal consolidation. Small linear left lower lobe opacity. Cardiomegaly. Mild pulmonary edema.[facility], KYCBC Auto Differentialon [id number] (Bld) [#/Vol]0.08 10*3/uLVeterans Health Administration Health- [place], [place] Basophils/100 WBC (Bld)1 %0 - 2 %[facility]- [place], KYDifferential TypeNOT REPORTEDAdena [facility]ayette [facility]- [place], KYEosinophils (Bld) [#/Vol]0.56 10*3/uLHighMer Health- [place], KYEosinophils/100 WBC (Bld)4 %1 - 4 %[facility]- [place], KYErythrocyte distribution width (RBC) [Ratio]14.9 %High11.8 - 14.4 %[place], [place] Hematocrit (Bld) [Volume fraction]48.3 %High36.3 - 47.1 %[place], [place] Hemoglobin (Bld) [Mass/Vol]14.9 g/dL11.9 - 15.1 g/dLHal[place], KYImmature granulocytes (Bld) [#/Vol]0.04 10*3/uLKeenan Private HospitalCARLOSImmature granulocytes (Bld) [#/Vol]0 %0[place], KYInterpretation and review of laboratory resultsAbnormalKeenan Private Hospital, NVLymphocytes (Bld) [#/Vol]2.18 10*3/uLKeenan Private Hospital NVLymphocytes/100 WBC (Bld)16 %Low24 - 43 %[place], KYMCH (RBC) [Entitic mass]27.8 pg25.2 - 33.5 pgHallett, KYMCHC (RBC) [Mass/Vol]30.8 g/dL28.4 - 34.8 g/dLHal[place], KYMCV (RBC) [Entitic vol] 90.1 fL82.6 - 102.9 fLKeenan Private Hospital NVMonocytes (Bld) [#/Vol]0.78 10*3/uL [facility] HospitalCARLOSMonocytes/100 WBC (Bld)6 %3 - 12 %[place], [place] Platelet mean volume (Bld) [Entitic vol]9.3 fL8.1 - 13.5 fLHal[place], [place] Platelets (Bld) [#/Vol]281 10*3/uLKeenan Private Hospital NVPlatelets (Bld) [#/Vol]NOT REPORTEDHal[place], KYRBC (Bld) [#/Vol]5.36 10*6/uLHigh3.95 - 5.11 m/uL [place], KYRBC morphology finding Nom (Bld)NOT REPORTEDHal[place], KYSegmented neutrophils/100 WBC (Bld)73 %High36 - 65 %[place], [place] Segs Kyurjxiw83.02HighMercy Health- [place], KYWBC (Bld) [#/Vol]13.7 10*3/uLHighMerMultiCare [facility]- [place], KYWBC (Bld) [#/Vol]0.0 10*3/uL0.0 per 100 WBCAdena F[facility]- [place], [place] WBC MorphologyNOT REPORTEDAdena [facility]- [place], KYComprehensive Metabolic Panelon [id number] [Mass/Vol]4.3 g/dL3.5 - 5.2 g/dLAdena Fayette Medical Center- [place], [place] Albumin/Globulin [Mass ratio]1.4 {ratio}[facility]- [place], KYALP [Catalytic activity/Vol]84 U/L35 - 104 U/LMBerger Hospital- [place], KYALT [Catalytic activity/Vol]9 U/L5 - 33 U/LMfostoria city hospital Health- [place], KYAnion gap [Moles/Vol]11 mmol/L9 - 17 mmol/L [facility]- [place], KYAST [Catalytic activity/Vol]13 U/L<32[facility]- [place], [place] Bilirubin Ql (U)0.22 mg/dLLow0.3 - 1.2 mg/dLAdena Fayette Medical Center- [place], KYBun/Cre Ratio27 HighAdena Fayette Medical Center- [place], KYCalcium [Mass/Vol]9.3 mg/dL8.6 - 10.4 mg/dLAdena Fayette [facility]- [place], KYChloride [Moles/Vol]95 mmol/LLow98 - 107 mmol/LMBerger Hospital- [place], KYCO2 [Moles/Vol]29 mmol/L20 - 31 mmol/LMBerger Hospital- [place], KYCreatinine [Mass/Vol]0.55 mg/dL0.5 - 0.9 mg/dLAdena Fayette [facility]- [place], KYGFR >60>60 mL/minAdena [facility]- [place], KYGFR Non->60>60 mL/minAdena [facility]- [place], KYGlucose [Mass/Vol]82 mg/dL70 - 99 mg/dLAdena Fayette [facility] Center- [place], KYInterpretation and review of laboratory resultsAbnormalAdena [facility]- [place], KYPotassium [Moles/Vol]4.2 mmol/L3.7 - 5.3 mmol/LMfostoria city hospital Health- [place], KYProtein [Mass/Vol]7.4 g/dL6.4 - 8.3 g/dLHal[place], KYSodium [Moles/Vol]135 mmol/L135 - 144 mmol/LMMuse, [place] Urea nitrogen [Mass/Vol]15 mg/dL6 - 20 mg/dLHal[place], KYMetabolic Panel on 50-52-1379AUT/1.73 sq M predicted among non-blacks MDRD (S/P/Bld) [Vol rate/Area][place], KYComment on above:Stage 1: Some kidney damage [...] body mass. Additional eGFR calculator available at: http://www.[employer]/multiple_crcl_2012.htm Troponinon [id number] I.cardiac [Mass/Vol]NOT REPORTEDHal[place], KYTrriverview regional medical centernin T.cardiac [Mass/Vol]NOT REPORTED<0.03 ng/mLHal[place], [place] Troponin, High Sensitivity7 ng/L0 - 14 ng/LMMuse, KYComaspirus ontonagon hospital on above: High Sensitivity Troponin values cannot be compared with other Troponin methodologies. Patients with high levels of Biotin oral intake (i.e >5mg/day) may have falsely decreased Troponin levels. Samples collected within 8 hours of biotin intake may require additional information for diagnosis. XR HAND LEFT (MIN 3 VIEWS)on [id number] acute fracture or dislocation in the left hand. Chronic deformities and moderate to severe degenerative changes at the 1st carpometacarpal joint. Mild soft tissue swellingHal[place], [place] EXAMINATION: THREE XRAY VIEWS OF THE [...] tissue swelling. No evidence of radiopaque foreign body.[facility] HospitalAudelia Mhpn Incoming Radiant Results From [employer]/Pacs - 05/27/2019 9:51 AM EST EXAMINATION: THREE [...] 1st carpometacarpal joint. Mild soft tissue swelling [facility] ProgrameterMISSOURI [facility], CARLOSDay [facility]ball [facility] Metabolic PanelOrdered By: Ziggy Smith on 30-93-0727Jyvye gap [Moles/Vol]8 mmol/LLow9 - 17 mmol/LMercy Programeter Work Phone: bun/Cre Sisjr82SltnSwyfg Health Work Phone: calcium [Mass/Vol]9.1 mg/dL8.6 - 10.4 mg/dLTuscarawas HospitalSAJE Pharma Work Phone: chloride [Moles/Vol]100 mmol/L98 - 107 mmol/LMercy Programeter Work Phone: ZO2 [Moles/Vol]32 mmol/LHigh20 - 31 mmol/LMercy Programeter Work Phone: creatinine [Mass/Vol]0.48 mg/dLLow0.5 - 0.9 mg/dLTuscarawas HospitalSasken Communication Technologies Phone: GFR >60>60 mL/minTuscarawas HospitalSAJE Pharma Work Phone: GFR CommentTuscarawas HospitalSasken Communication Technologies Phone: comment on above:Average GFR for 50-59 years old: 93 mL/min/1.73sq m Chronic Kidney Disease: <60 mL/min/1.73sq m Kidney failure: <15 mL/min/1.73sq m eGFR calculated using average adult body mass. Additional eGFR calculator available at: http://www.[employer]/multiple_crcl_2012.htm GFR Non->60>60 mL/minTuscarawas HospitalSasken Communication Technologies Phone: GFR StagingTuscarawas HospitalSasken Communication Technologies Phone: comment on above:Stage 1: Some kidney damage normal GFR Stage 2: Mild kidney damage GFR 60-89 Stage 3: Moderate kidney damage GFR 30-59 Stage 4: Severe kidney damage GFR 15-29 Stage 5: Severe kidney damage GFR <15 ESRD - chronic treatment by dialysis or transplant Glucose [Mass/Vol]111 mg/vYHkmb63 - 99 mg/dLTuscarawas HospitalSasken Communication Technologies Phone: Interpretation and review of laboratory results AbnormalTuscarawas HospitalSasken Communication Technologies Phone: potassium [Moles/Vol]4.1 mmol/L3.7 - 5.3 mmol/LMthe university of toledo medical centery [employer] Phone: sodium [Moles/Vol]140 mmol/L135 - 144 mmol/LMercy [employer] Phone: Urea nitrogen [Mass/Vol]14 mg/dL6 - 20 mg/dLTuscarawas HospitalSasken Communication Technologies Phone: cBC Auto DifferentialOrdered By: Ziggy Smith on 21-82-8846Eqksjmno Eos #<0.03Tuscarawas HospitalSasken Communication Technologies Phone: absolute Immature Granulocyte0.04Tuscarawas HospitalSasken Communication Technologies Phone: absolute Lymph #1.73T[facility]carawas HospitalSasken Communication Technologies Phone: absolute [place] #0.92Tuscarawas HospitalSasken Communication Technologies Phone: Basophils (Bld) [#/Vol]10*3/uLTuscarawas HospitalSasken Communication Technologies Phone: Basophils/100 WBC (Bld)0 %0 - 2 %[employer] Phone: differential TypeNOT REPORTEDTuscarawas HospitalSasken Communication Technologies Phone: eosinophils/100 WBC (Bld)0 %Low1 - 4 %[employer] Phone: erythrocyte distribution width (RBC) [Ratio]13.7 %11.8 - 14.4 %[employer] Phone: Hematocrit (Bld) [Volume fraction]47.1 %36.3 - 47.1 % [employer] Phone: Hemoglobin (Bld) [Mass/Vol]14.7 g/dL11.9 - 15.1 g/dL [employer] Phone: Immature granulocytes/100 WBC (Bld)0 %0Tuscarawas HospitalSasken Communication Technologies Phone: Interpretation and review of laboratory results AbnormalTuscarawas HospitalSasken Communication Technologies Phone: lymphocytes/100 WBC (Bld)19 %Low24 - 43 %[employer] Phone: MCH (RBC) [Entitic mass]28.5 pg25.2 - 33.5 pgTuscarawas HospitalSasken Communication Technologies Phone: MCHC (RBC) [Mass/Vol]31.2 g/dL28.4 - 34.8 g/dLTuscarawas HospitalSasken Communication Technologies Phone: MCV (RBC) [Entitic vol]91.3 fL82.6 - 102.9 fLTuscarawas HospitalSasken Communication Technologies Phone: Monocytes/100 WBC (Bld)10 %3 - 12 %[employer] Phone: NRBC Automated0.00.0 per 100 WBCTuscarawas HospitalSasken Communication Technologies Phone: platelet EstimateNOT REPORTEDTuscarawas HospitalSAJE Pharma Work Phone: platelet mean volume (Bld) [Entitic vol]9.3 fL8.1 - 13.5 fLTuscarawas HospitalSasken Communication Technologies Phone: [phone] (Bld) [#/Vol]238 10*3/uLTuscarawas HospitalSAJE Pharma Work Phone: [phone] (Bld) [#/Vol]5.16 10*6/uLHigh3.95 - 5.11 m/uLTuscarawas HospitalSAJE Pharma Work Phone: RBC morphology finding Nom (Bld)NOT REPORTEDTuscarawas HospitalSasken Communication Technologies Phone: segmented neutrophils/100 WBC (Bld)71 %High36 - 65 % [facility] [employer] Phone: segs Absolute6.53Tuscarawas HospitalSasken Communication Technologies Phone: WBC (Bld) [#/Vol]9.3 10*3/uLTuscarawas HospitalSasken Communication Technologies Phone: WBC MorphologyNOT REPORTEDTuscarawas HospitalSAJE Pharma Work Phone: culture Blood #1Ordered By: Wesly Whitten on 04-26-2019 Special Urxaqdex45ET, L ACTuscarawas HospitalSasken Communication Technologies Phone: special RequestsRAC 20 MLTuscarawas HospitalSasken Communication Technologies Phone: specimen Description.BLOODTuscarawas HospitalSasken Communication Technologies Phone: Glucose, Whole BloodOrdered By: Gordo De Santiago on 92-19-2259Kxhlqnq [Mass/Vol]149 mg/lVQxru23 - 100 mg/dLTuscarawas HospitalSasken Communication Technologies Phone: Interpretation and review of laboratory results AbnormalTuscarawas HospitalSasken Communication Technologies Phone: Glucose [Mass/Vol]129 mg/pHBukv21 - 100 mg/dLTuscarawas HospitalSasken Communication Technologies Phone: Interpretation and review of laboratory results AbnormalTuscarawas HospitalSasken Communication Technologies Phone: laboratory - Microbiology and Antimicrobial susceptibilityOrdered By: Wesly Whitten on [id number] identified Cx Nom (Unsp spec)NO GROWTH 5 DAYSTuscarawas HospitalSAJE Pharma Work Phone: basic Metabolic PanelOrdered By: Ziggy Smith on 97-64-5737Zntzw gap [Moles/Vol]13 mmol/L9 - 17 mmol/LMercy Programeter Work Phone: bun/Cre Jyqyl47VcmmHangr Health Work Phone: calcium [Mass/Vol]9.0 mg/dL8.6 - 10.4 mg/dLTuscarawas HospitalSasken Communication Technologies Phone: chloride [Moles/Vol]100 mmol/L98 - 107 mmol/LMercy Programeter Work Phone: cO2 [Moles/Vol]29 mmol/L20 - 31 mmol/LMthe university of toledo medical centerSuddenValues Work Phone: creatinine [Mass/Vol]0.42 mg/dLLow0.5 - 0.9 mg/dLTuscarawas HospitalSasken Communication Technologies Phone: GFR >60>60 mL/minTuscarawas HospitalSasken Communication Technologies Phone: GFR CommentTuscarawas HospitalSasken Communication Technologies Phone: comment on above:Average GFR for 50-59 years old: 93 mL/min/1.73sq m Chronic Kidney Disease: <60 mL/min/1.73sq m Kidney failure: <15 mL/min/1.73sq m eGFR calculated using average adult body mass. Additional eGFR calculator available at: http://www.[employer]/multiple_crcl_2012.htm GFR Non->60>60 mL/minTuscarawas HospitalSAJE Pharma Work Phone: GFR StagingTuscarawas HospitalSasken Communication Technologies Phone: comment on above:Stage 1: Some kidney damage normal GFR Stage 2: Mild kidney damage GFR 60-89 Stage 3: Moderate kidney damage GFR 30-59 Stage 4: Severe kidney damage GFR 15-29 Stage 5: Severe kidney damage GFR <15 ESRD - chronic treatment by dialysis or transplant Glucose [Mass/Vol]145 mg/sKNtag14 - 99 mg/dLTuscarawas HospitalSasken Communication Technologies Phone: Interpretation and review of laboratory results AbnormalTuscarawas HospitalSasken Communication Technologies Phone: potassium [Moles/Vol]4.0 mmol/L3.7 - 5.3 mmol/LMercy Programeter Work Phone: sodium [Moles/Vol]142 mmol/L135 - 144 mmol/LMthe university of toledo medical centery Programeter Work Phone: Urea nitrogen [Mass/Vol]12 mg/dL6 - 20 mg/dLTuscarawas HospitalSasken Communication Technologies Phone: cBC Auto DifferentialOrdered By: Ziggy Smith on 91-39-4208Jqhesweu Eos #<0.03Tuscarawas HospitalSasken Communication Technologies Phone: absolute Immature Granulocyte0.03Tuscarawas HospitalSasken Communication Technologies Phone: absolute Lymph #1.55Tuscarawas HospitalSasken Communication Technologies Phone: absolute [place] #0.82Tuscarawas HospitalSasken Communication Technologies Phone: basophils (Bld) [#/Vol]10*3/uLTuscarawas HospitalSasken Communication Technologies Phone: basophils/100 WBC (Bld)0 %0 - 2 %[employer] Phone: differential TypeNOT REPORTEDTuscarawas HospitalSasken Communication Technologies Phone: eosinophils/100 WBC (Bld)0 %Low1 - 4 %[employer] Phone: erythrocyte distribution width (RBC) [Ratio]14.1 %11.8 - 14.4 %[employer] Phone: Hematocrit (Bld) [Volume fraction]45.2 %36.3 - 47.1 % [employer] Phone: Hemoglobin (Bld) [Mass/Vol]14.1 g/dL11.9 - 15.1 g/dL [employer] Phone: Immature granulocytes/100 WBC (Bld)0 %0Tuscarawas HospitalSasken Communication Technologies Phone: Interpretation and review of laboratory results AbnormalTuscarawas HospitalSasken Communication Technologies Phone: Lymphocytes/100 WBC (Bld)17 %Low24 - 43 %[employer] Phone: MCH (RBC) [Entitic mass]28.8 pg25.2 - 33.5 pgTuscarawas HospitalSasken Communication Technologies Phone: MCHC (RBC) [Mass/Vol]31.2 g/dL28.4 - 34.8 g/dLTuscarawas HospitalSasken Communication Technologies Phone: MCV (RBC) [Entitic vol]92.4 fL82.6 - 102.9 fLTuscarawas HospitalSasken Communication Technologies Phone: Monocytes/100 WBC (Bld)9 %3 - 12 %[employer] Phone: NRBC Automated0.00.0 per 100 WBCTuscarawas HospitalSasken Communication Technologies Phone: platelet EstimateNOT REPORTEDTuscarawas HospitalSasken Communication Technologies Phone: Platelet mean volume (Bld) [Entitic vol]9.4 fL8.1 - 13.5 fLTuscarawas HospitalSasken Communication Technologies Phone: Platelets (Bld) [#/Vol]239 10*3/uLHackHands Phone: [phone] (Bld) [#/Vol]4.89 10*6/uL3.95 - 5.11 m/uLHackHands Phone: RBC morphology finding Nom (Bld)NOT REPORTEDTuscarawas HospitalSasken Communication Technologies Phone: Segmented neutrophils/100 WBC (Bld)74 %High36 - 65 % [employer] Phone: Segs Absolute6.84Tuscarawas HospitalSAJE Pharma Work Phone: WBC (Bld) [#/Vol]9.3 10*3/uLMer Programeter Work Phone: WBC MorphologyNOT REPORTEDMer Programeter Work Phone: Glucose, Whole BloodOrdered By: Gordo De Santiago on 45-51-4316Lhgdkbu [Mass/Vol]216 mg/pFXlud36 - 100 mg/dLVeterans Health Administration [employer] Phone: Interpretation and review of laboratory results AbnormalTuscarawas HospitalSasken Communication Technologies Phone: Glucose [Mass/Vol]267 mg/kSQjna37 - 100 mg/dLVeterans Health Administration [employer] Phone: Interpretation and review of laboratory results AbnormalVeterans Health Administration [employer] Phone: Glucose [Mass/Vol]245 mg/uFIbzs13 - 100 mg/dLVeterans Health Administration [employer] Phone: Interpretation and review of laboratory results AbnormalTuscarawas HospitalSasken Communication Technologies Phone: Glucose [Mass/Vol]124 mg/pNNega74 - 100 mg/dLVeterans Health Administration [employer] Phone: Interpretation and review of laboratory results AbnormalTuscarawas HospitalSasken Communication Technologies Phone: MRSA DNA Probe, NasalOrdered By: Gordo De Santiago on 81-88-3851SBYB, DNA, NasalNEGATIVE: MRSA DNA not detected by nucleic acid amplification.NEGATIVE: MRSA DNA not detected by nucleic acid amplificatiVeterans Health Administration [employer] Phone: comment on above: Results should be used as an adjunct to nosocomial control efforts to identify patients needing enhanced precautions. The test is not intended to identify patients with staphylococcal infections. Results should not be used to guide or monitor treatment for MRSA infections. Specimen Description.NASAL SWABTuscarawas HospitalSAJE Pharma Work Phone: basic Metabolic PanelOrdered By: Ziggy Smith on 27-15-0240Pmhdc gap [Moles/Vol]9 mmol/L9 - 17 mmol/LMercy Health Work Phone: bun/Cre Ywoyq06WitdIdrvp Health Work Phone: calcium [Mass/Vol]8.7 mg/dL8.6 - 10.4 mg/dLTuscarawas HospitalSasken Communication Technologies Phone: chloride [Moles/Vol]103 mmol/L98 - 107 mmol/LMthe university [facility] medical centery [employer] Phone: cO2 [Moles/Vol]27 mmol/L20 - 31 mmol/LMthe [facility]ery [employer] Phone: creatinine [Mass/Vol]0.49 mg/dLLow0.5 - 0.9 mg/dLTuscarawas HospitalSasken Communication Technologies Phone: GFR >60>60 mL/minTuscarawas HospitalSasken Communication Technologies Phone: GFR CommentTuscarawas HospitalSasken Communication Technologies Phone: comment on above:Average GFR for 50-59 years old: 93 mL/min/1.73sq m Chronic Kidney Disease: <60 mL/min/1.73sq m Kidney failure: <15 mL/min/1.73sq m eGFR calculated using average adult body mass. Additional eGFR calculator available at: http://www.[employer]/multiple_crcl_2012.htm GFR Non->60>60 mL/minTuscarawas HospitalSasken Communication Technologies Phone: GFR StagingTuscarawas HospitalSasken Communication Technologies Phone: comment on above:Stage 1: Some kidney damage normal GFR Stage 2: Mild kidney damage GFR 60-89 Stage 3: Moderate kidney damage GFR 30-59 Stage 4: Severe kidney damage GFR 15-29 Stage 5: Severe kidney damage GFR <15 ESRD - chronic treatment by dialysis or transplant Glucose [Mass/Vol]147 mg/nZCdru13 - 99 mg/dLTuscarawas HospitalSasken Communication Technologies Phone: Interpretation and review of laboratory results AbnormalTuscarawas HospitalSasken Communication Technologies Phone: potassium [Moles/Vol]3.9 mmol/L3.7 - 5.3 mmol/LMOnaro Phone: sodium [Moles/Vol]139 mmol/L135 - 144 mmol/LMLocalMed Work Phone: Urea nitrogen [Mass/Vol]19 mg/dL6 - 20 mg/dLTuscarawas HospitalSasken Communication Technologies Phone: cBC Auto DifferentialOrdered By: Ziggy Smith on [id number] Eos #<0.03[facility] HospitalS[facility] Phone: absolute Immature Granulocyte0.06[facility] HospitalS[facility] Phone: absolute Lymph #1.68[facility] Phone: absolute [place] #0.75[facility] HospitalS[facility] Phone: basophils (Bld) [#/Vol]10*3/uLTuscarawas HospitalSasken Communication Technologies Phone: basophils/100 WBC (Bld)0 %0 - 2 %[employer] Phone: differential TypeNOT REPORTEDTuscarawas HospitalSasken Communication Technologies Phone: eosinophils/100 WBC (Bld)0 %Low1 - 4 %[employer] Phone: erythrocyte distribution width (RBC) [Ratio]14.5 %High 11.8 - 14.4 %[employer] Phone: Hematocrit (Bld) [Volume fraction]44.8 %36.3 - 47.1 % [employer] Phone: Hemoglobin (Bld) [Mass/Vol]13.5 g/dL11.9 - 15.1 g/dL [employer] Phone: Immature granulocytes/100 WBC (Bld)1 %Fecy5GykypSasken Communication Technologies Phone: Interpretation and review of laboratory results AbnormalTuscarawas HospitalSasken Communication Technologies Phone: Lymphocytes/100 WBC (Bld)14 %Low24 - 43 %[employer] Phone: [phone] (RBC) [Entitic mass]28.7 pg25.2 - 33.5 pgTuscarawas HospitalSasken Communication Technologies Phone: MCHC (RBC) [Mass/Vol]30.1 g/dL28.4 - 34.8 g/dLTuscarawas HospitalSasken Communication Technologies Phone: MCV (RBC) [Entitic vol]95.1 fL82.6 - 102.9 fLTuscarawas HospitalSasken Communication Technologies Phone: Monocytes/100 WBC (Bld)6 %3 - 12 %[employer] Phone: NRBC Automated0.00.0 per 100 WBCTuscarawas HospitalSasken Communication Technologies Phone: Vlatelet EstimateNOT REPORTEDTuscarawas HospitalSasken Communication Technologies Phone: Platelet mean volume (Bld) [Entitic vol]9.5 fL8.1 - 13.5 fLTuscarawas HospitalSasken Communication Technologies Phone: Platelets (Bld) [#/Vol]238 10*3/uLTuscarawas HospitalSAJE Pharma Work Phone: RBC (Bld) [#/Vol]4.71 10*6/uL3.95 - 5.11 m/uLTuscarawas HospitalSasken Communication Technologies Phone: RBC morphology finding Nom (Bld)NOT REPORTEDTuscarawas HospitalSasken Communication Technologies Phone: Segmented neutrophils/100 WBC (Bld)79 %High36 - 65 % [employer] Phone: Segs Absolute9.65HighTuscarawas HospitalSasken Communication Technologies Phone: [phone] (Bld) [#/Vol]12.2 10*3/uLDavis Memorial HospitalHackHands Phone: WBC MorphologyNOT REPORTEDTuscarawas HospitalSasken Communication Technologies Phone: Glucose, Whole BloodOrdered By: Gordo De Santiago on [id number] [Mass/Vol]175 mg/xAErty67 - 100 mg/dLMerConsulted Health Work Phone: Interpretation and review of laboratory results AbnormalMerConsulted Health Work Phone: Glucose [Mass/Vol]339 mg/xNIamb49 - 100 mg/dLMercy Health Work Phone: Interpretation and review of laboratory results AbnormalMerConsulted Health Work Phone: Glucose [Mass/Vol]182 mg/dHEasc41 - 100 mg/dLMercy Health Work Phone: Interpretation and review of laboratory results AbnormalMerSAJE Pharma Work Phone: Glucose [Mass/Vol]130 mg/jYHwkp75 - 100 mg/dLMerConsulted Health Work Phone: Interpretation and review of laboratory results AbnormalMerSAJE Pharma Work Phone: blood Gas, ArterialOrdered By: Ziggy Smith on [id number] TestPASSMerSAJE Pharma Work Phone: [phone] - 5 %[employer] Work Phone: FIO2NOT REPORTEDDigital [employer] Work Phone: HCO3 (Bld) [Moles/Vol]26.5 mmol/LHigh22 - 26 mmol/L [employer] Work Phone: Interpretation and review of laboratory results AbnormalMerSAJE Pharma Work Phone: MethemoglobinNOT REPORTED0 - 1.9 %[employer] Work Phone: ModeNOT REPORTEDMerSAJE Pharma Work Phone: Negative Base Excess, Art0.2 mmol/L0 - 2 mmol/LMercy Health Work Phone: NOTIFICATIONNOT REPORTEDMerSAJE Pharma Work Phone: NOTIFICATION TIMENOT REPORTEDMercy Health Work Phone: O2 Device/Flow/%CannulaMercy Health Work Phone: Oxygen saturation in Blood89.6 %Low95 - 98 %[facility] Work Phone: OxyhemoglobinNOT QLRMLKFM38 - 98 %[facility] Work Phone: [phone], Art, Temp AdjNOT REPORTEDMercy Health Work Phone: yYH6, Onvnuizf95.2HighMercy Health Work Phone: [phone]/CpapNOT REPORTEDMercy Health Work Phone: pH, Art, Temp AdjNOT REPORTEDMercy Health Work Phone: pH, Arterial7.332LowMercy Health Work Phone: [phone], Art, Temp AdjNOT REPORTEDMer Health Work Phone: iO6, Ldxevckn97.2LowMer Health Work Phone: Positive Base Excess, ArtNOT REPORTED0 - 2 mmol/LMercy Health Work Phone: PSVNOT REPORTEDMerConsulted Health Work Phone: Pt Temp37.0[facility] Work Phone: Pt. PositionFOWLERSMer Health Work Phone: Respiratory rate20 /minMercy Health Work Phone: sample SiteRight Radial ArteryMer Health Work Phone: Set RateNOT REPORTEDMer Health Work Phone: Text for RespiratoryNOT REPORTEDMerConsulted Health Work Phone: Total HbNOT VJIQTLVE65 - 16 g/dlMercy Health Work Phone: Total RateNOT REPORTEDMercy Health Work Phone: VTNOT REPORTEDMercy Health Work Phone: Urine CultureOrdered By: Wesly Whitten on 04-23-2019 Bacteria identified Cx Nom (U)NO SIGNIFICANT GROWTHVeterans Health Administration Programeter Work Phone: special RequestsNOT REPORTEDTuscarawas HospitalSAJE Pharma Work Phone: specimen Description.CLEAN CATCH URINETuscarawas HospitalSAJE Pharma Work Phone: blood Gas, ArterialOrdered By: Oliva Tristan on [id number] TestPASSTuscarawas HospitalSAJE Pharma Work Phone: [phone] - 5 %[facility] HospitalSuddenValues Work Phone: [phone] Health Work Phone: HCO3 (Bld) [Moles/Vol]23.0 mmol/L22 - 26 mmol/LMthe university of [facility]led[facility] medical centery Programeter Work Phone: Interpretation and review of laboratory results AbnormalTuscarawas HospitalSAJE Pharma Work Phone: MethemoglobinNOT REPORTED0 - 1.9 %[facility] HospitalSuddenValues Work Phone: ModeNOT REPORTEDTuscarawas HospitalSAJE Pharma Work Phone: Negative Base Excess, Art4.4 mmol/LHigh0 - 2 mmol/L [facility] HospitalSuddenValues Work Phone: NOTIFICATIONNOT [facility] HospitalSAJE Pharma Work Phone: NOTIFICATION TIMENOT REPORTEDTuscarawas HospitalSAJE Pharma Work Phone: O2 Device/Flow/%BIPAPMerSAJE Pharma Work Phone: Oxygen saturation in Blood91.1 %Low95 - 98 %[employer] Work Phone: OxyhemoglobinNOT UUTFFTBZ79 - 98 %[employer] Work Phone: pCO2, Art, Temp AdjNOT REPORTEDTuscarawas HospitalSAJE Pharma Work Phone: pCO2, Lkdzqtao53.9HighTuscarawas HospitalSAJE Pharma Work Phone: peep/CpapNOT REPORTEDTuscarawas HospitalSAJE Pharma Work Phone: pH, Art, Temp AdjNOT REPORTEDMerConsulted Health Work Phone: pH, Arterial7.272LowMercy Health Work Phone: pO2, Art, Temp AdjNOT REPORTEDMerConsulted Health Work Phone: pO2, Fllyudkt44.5LowMerConsulted Health Work Phone: positive Base Excess, ArtNOT REPORTED0 - 2 mmol/LMercy Health Work Phone: pSVNOT REPORTEDMerConsulted Health Work Phone: pt Temp37.0[facility] Work Phone: pt. PositionNOT REPORTEDMerConsulted Health Work Phone: respiratory rate16 /minMerConsulted Health Work Phone: sample SiteRight Brachial ArteryMerSAJE Pharma Work Phone: set RateNOT REPORTEDMerConsulted Health Work Phone: Text for RespiratoryNOT REPORTEDMerConsulted Health Work Phone: Total HbNOT TVQCAYWO39 - 16 g/dlMerSAJE Pharma Work Phone: Total RateNOT REPORTEDMerConsulted Health Work Phone: VTNOT REPORTEDMerConsulted Health Work Phone: blood Gas, ArterialOrdered By: Ziggy Smith on [id number] TestPASSMerSAJE Pharma Work Phone: [phone] - 5 %[facility]uro[facility] Solutionsy Health Work Phone: [phone] Health Work Phone: HCO3 (Bld) [Moles/Vol]25.4 mmol/L22 - 26 mmol/LMercy Health Work Phone: Interpretation and review of laboratory results AbnormalMerSAJE Pharma Work Phone: MethemoglobinNOT REPORTED0 - 1.9 %[facility] Work Phone: ModeNOT REPORTEDMerConsulted Health Work Phone: Negative Base Excess, Art2.9 mmol/LHigh0 - 2 mmol/L [employer] Work Phone: NOTIFICATIONNOT REPORTEDMerConsulted Health Work Phone: NOTIFICATION TIMENOT REPORTEDMerConsulted Health Work Phone: O2 Device/Flow/%CannulaMerConsulted Health Work Phone: Oxygen saturation in Blood90.9 %Low95 - 98 %[employer] Work Phone: OxyhemoglobinNOT ELHOMANG59 - 98 %[employer] Work Phone: [phone], Art, Temp AdjNOT REPORTEDMerConsulted Health Work Phone: eSQ4, Bevfyhtl81.5HighMerConsulted Health Work Phone: [phone]/CpapNOT REPORTEDMerConsulted Health Work Phone: pH, Art, Temp AdjNOT REPORTEDMerConsulted Health Work Phone: pH, Arterial7.255LowMerConsulted Health Work Phone: nG4, Art, Temp AdjNOT REPORTEDMerConsulted Health Work Phone: tQ4, Gvgbcisj99.5LowMerConsulted Health Work Phone: [phone] Base Excess, ArtNOT REPORTED0 - 2 mmol/LMercy Health Work Phone: PSVNOT REPORTEDMerConsulted Health Work Phone: Pt Temp37.0[facility] Work Phone: Pt. PositionNOT REPORTEDMerConsulted Health Work Phone: Respiratory RateNOT REPORTEDMerConsulted Health Work Phone: [phone] SiteRight Brachial ArteryMerConsulted Health Work Phone: Set RateNOT REPORTEDMerConsulted Health Work Phone: Text for RespiratoryNOT REPORTEDHackHands Phone: Total HbNOT OYEZFWBZ05 - 16 g/dlH[facility]H[employer] Phone: Total RateNOT REPORTEDHackHands Phone: VTNOT REPORTEDHackHands Phone: cBC Auto DifferentialOrdered By: Gordo De Santiago on [id number] Eos #0.00[facility] HospitalSasken Communication Technologies Phone: absolute Immature Granulocyte0.00[facility] HospitalS[facility] Phone: absolute Lymph #0.80LowHackHands Phone: absolute [place] #0.00LowHackHands Phone: basophils (Bld) [#/Vol]0.00 10*3/uLTuscarawas HospitalSasken Communication Technologies Phone: basophils/100 WBC (Bld)0 %0 - 2 %[employer] Phone: differential TypeNOT REPORTEDHackHands Phone: eosinophils/100 WBC (Bld)0 %Low1 - 4 %[employer] Phone: erythrocyte distribution width (RBC) [Ratio]14.3 %11.8 - 14.4 %[employer] Phone: Hematocrit (Bld) [Volume fraction]46.2 %36.3 - 47.1 % [employer] Phone: Hemoglobin (Bld) [Mass/Vol]14.3 g/dL11.9 - 15.1 g/dL [employer] Phone: Immature granulocytes/100 WBC (Bld)0 %0H[employer] Phone: Interpretation and review of laboratory results AbnormalHackHands Phone: Lymphocytes/100 WBC (Bld)5 %Low24 - 43 %[employer] Work Phone: MCH (RBC) [Entitic mass]28.9 pg25.2 - 33.5 pgTuscarawas HospitalSasken Communication Technologies Phone: MCHC (RBC) [Mass/Vol]31.0 g/dL28.4 - 34.8 g/dLTuscarawas HospitalSasken Communication Technologies Phone: MCV (RBC) [Entitic vol]93.5 fL82.6 - 102.9 fLTuscarawas HospitalSasken Communication Technologies Phone: Monocytes/100 WBC (Bld)0 %Low3 - 12 %[employer] Phone: Morphology Emmett (Bld) [Interp]NormalTuscarawas HospitalSasken Communication Technologies Phone: NRBC Automated0.00.0 per 100 WBCTuscarawas HospitalSasken Communication Technologies Phone: platelet EstimateNOT REPORTEDTuscarawas HospitalSasken Communication Technologies Phone: platelet mean volume (Bld) [Entitic vol]9.6 fL8.1 - 13.5 fLTuscarawas HospitalSasken Communication Technologies Phone: Platelets (Bld) [#/Vol]208 10*3/uLTuscarawas HospitalSasken Communication Technologies Phone: RBC (Bld) [#/Vol]4.94 10*6/uL3.95 - 5.11 m/ProtectionSasken Communication Technologies Phone: RBC morphology finding Nom (Bld)NOT REPORTEDTuscarawas HospitalSasken Communication Technologies Phone: Segmented neutrophils/100 WBC (Bld)95 %High36 - 65 % [employer] Phone: Segs Xufpizkg18.10HighTuscarawas HospitalSasken Communication Technologies Phone: WBC (Bld) [#/Vol]15.9 10*3/uLDavis Memorial HospitalHackHands Phone: WBC MorphologyNOT REPORTEDMerSAJE Pharma Work Phone: comprehensive Metabolic PanelOrdered By: Gordo De Santiago on [id number] [Mass/Vol]3.6 g/dL3.5 - 5.2 g/dLVeterans Health Administration Sin[employer] Phone: Qlbumin/Globulin [Mass ratio]1.1 {ratio}[facility] Programeter Work Phone: ZLP [Catalytic activity/Vol]86 U/L35 - 104 U/LMercy Programeter Work Phone: ELT [Catalytic activity/Vol]10 U/L5 - 33 U/LMthe university of [facility] medical centery Programeter Work Phone: Ynion gap [Moles/Vol]12 mmol/L9 - 17 mmol/LMercy Programeter Work Phone: TST [Catalytic activity/Vol]10 U/L<32MerSAJE Pharma Work Phone: Pilirubin [Mass/Vol]0.24 mg/dLLow0.3 - 1.2 mg/dLVeterans Health Administration [employer] Phone: bun/Cre Gvpjs45XtjuRlmxp Health Work Phone: Walcium [Mass/Vol]8.7 mg/dL8.6 - 10.4 mg/dLVeterans Health Administration [employer] Phone: Khloride [Moles/Vol]100 mmol/L98 - 107 mmol/LMercy Programeter Work Phone: FO2 [Moles/Vol]25 mmol/L20 - 31 mmol/LMercy Programeter Work Phone: Mreatinine [Mass/Vol]0.41 mg/dLLow0.5 - 0.9 mg/dLTuscarawas HospitalSasken Communication Technologies Phone: GFR >60>60 mL/minTuscarawas HospitalSAJE Pharma Work Phone: GFR CommentMer Programeter Work Phone: comment on above:Average GFR for 50-59 years old: 93 mL/min/1.73sq m Chronic Kidney Disease: <60 mL/min/1.73sq m Kidney failure: <15 mL/min/1.73sq m eGFR calculated using average adult body mass. Additional eGFR calculator available at: http://www.[employer]/multiple_crcl_2012.htm GFR Non->60>60 mL/minTuscarawas HospitalSasken Communication Technologies Phone: GFR StagingTuscarawas HospitalSasken Communication Technologies Phone: comment on above:Stage 1: Some kidney damage normal GFR Stage 2: Mild kidney damage GFR 60-89 Stage 3: Moderate kidney damage GFR 30-59 Stage 4: Severe kidney damage GFR 15-29 Stage 5: Severe kidney damage GFR <15 ESRD - chronic treatment by dialysis or transplant Glucose [Mass/Vol]208 mg/qVLlxf81 - 99 mg/dLTuscarawas HospitalSasken Communication Technologies Phone: Interpretation and review of laboratory results AbnormalTuscarawas HospitalSasken Communication Technologies Phone: potassium [Moles/Vol]4.1 mmol/L3.7 - 5.3 mmol/LMthe university of [facility] centery Programeter Work Phone: protein [Mass/Vol]6.9 g/dL6.4 - 8.3 g/dLTuscarawas HospitalSasken Communication Technologies Phone: sodium [Moles/Vol]137 mmol/L135 - 144 mmol/LMthe university of [facility] centery Programeter Work Phone: Urea nitrogen [Mass/Vol]12 mg/dL6 - 20 mg/dLTuscarawas HospitalSasken Communication Technologies Phone: Glucose, Whole BloodOrdered By: Gordo De Santiago on [id number] [Mass/Vol]214 mg/xUGguq83 - 100 mg/dLTuscarawas HospitalSasken Communication Technologies Phone: Interpretation and review of laboratory results AbnormalTuscarawas HospitalSasken Communication Technologies Phone: lactic acid, plasmaOrdered By: Oliva Tristan on [id number] [Moles/Vol]1.2 mmol/L0.5 - 2.2 mmol/LMthe [facility] of [facility] centery Programeter Work Phone: lactic Acid, Whole BloodNOT REPORTED0.7 - 2.1 mmol/L [facility] Program[facility] Work Phone: basic Metabolic Panel w/ Reflex to MGOrdered By: Albert Ibrahim on 56-85-7080Pjlrd gap [Moles/Vol]13 mmol/L9 - 17 mmol/LMthe university of [facility] centery Programeter Work Phone: bun/Cre Wtunh20NkylSepss Health Work Phone: calcium [Mass/Vol]9.0 mg/dL8.6 - 10.4 mg/dLTuscarawas HospitalSasken Communication Technologies Phone: chloride [Moles/Vol]94 mmol/LLow98 - 107 mmol/LMthe university of [facility] centery [employer] Phone: cO2 [Moles/Vol]25 mmol/L20 - 31 mmol/LMthe university of toledo medical centerSuddenValues Work Phone: creatinine [Mass/Vol]0.47 mg/dLLow0.5 - 0.9 mg/dLTuscarawas HospitalSasken Communication Technologies Phone: GFR >60>60 mL/minTuscarawas HospitalSasken Communication Technologies Phone: GFR CommentTuscarawas HospitalSasken Communication Technologies Phone: comment on above:Average GFR for 50-59 years old: 93 mL/min/1.73sq m Chronic Kidney Disease: <60 mL/min/1.73sq m Kidney failure: <15 mL/min/1.73sq m eGFR calculated using average adult body mass. Additional eGFR calculator available at: http://www.[employer]/multiple_crcl_2012.htm GFR Non->60>60 mL/minTuscarawas HospitalSasken Communication Technologies Phone: GFR StagingTuscarawas HospitalSasken Communication Technologies Phone: comment on above:Stage 1: Some kidney damage normal GFR Stage 2: Mild kidney damage GFR 60-89 Stage 3: Moderate kidney damage GFR 30-59 Stage 4: Severe kidney damage GFR 15-29 Stage 5: Severe kidney damage GFR <15 ESRD - chronic treatment by dialysis or transplant Glucose [Mass/Vol]160 mg/oNBfgw55 - 99 mg/dLHackHands Phone: Interpretation and review of laboratory results AbnormalTuscarawas HospitalSasken Communication Technologies Phone: potassium [Moles/Vol]3.8 mmol/L3.7 - 5.3 mmol/LMOnaro Phone: sodium [Moles/Vol]132 mmol/FFby804 - 144 mmol/LMthe university of [facility] centery [employer] Phone: Urea nitrogen [Mass/Vol]13 mg/dL6 - 20 mg/dLTuscarawas HospitalSasken Communication Technologies Phone: cBC Auto DifferentialOrdered By: Albert Ibrahim on 80-93-8005Oykpeqbj Eos #0.17[facility] HospitalSasken Communication Technologies Phone: absolute Immature Granulocyte0.13[facility] HospitalSasken Communication Technologies Phone: absolute Lymph #1.06LowTuscarawas HospitalSasken Communication Technologies Phone: absolute [place] #1.00[facility] HospitalS[facility] Communication Technologies Phone: basophils (Bld) [#/Vol]0.05 10*3/uLTuscarawas HospitalSasken Communication Technologies Phone: basophils/100 WBC (Bld)0 %0 - 2 %[employer] Phone: differential TypeNOT REPORTEDMerSasken Communication Technologies Phone: eosinophils/100 WBC (Bld)1 %1 - 4 %[employer] Phone: erythrocyte distribution width (RBC) [Ratio]14.4 %11.8 - 14.4 %[employer] Phone: Hematocrit (Bld) [Volume fraction]45.6 %36.3 - 47.1 % [employer] Phone: Hemoglobin (Bld) [Mass/Vol]14.5 g/dL11.9 - 15.1 g/dL [employer] Phone: Immature granulocytes/100 WBC (Bld)1 %Vvuu3OxihuSasken Communication Technologies Phone: Interpretation and review of laboratory results AbnormalTuscarawas HospitalSasken Communication Technologies Phone: Lymphocytes/100 WBC (Bld)6 %Low24 - 43 %[employer] Phone: MCH (RBC) [Entitic mass]29.6 pg25.2 - 33.5 pgTuscarawas HospitalSasken Communication Technologies Phone: MCHC (RBC) [Mass/Vol]31.8 g/dL28.4 - 34.8 g/dLTuscarawas HospitalSasken Communication Technologies Phone: MCV (RBC) [Entitic vol]93.1 fL82.6 - 102.9 fLTuscarawas HospitalSasken Communication Technologies Phone: Monocytes/100 WBC (Bld)5 %3 - 12 %[employer] Phone: NRBC Automated0.00.0 per 100 WBCTuscarawas HospitalSasken Communication Technologies Phone: platelet EstimateNOT REPORTEDTuscarawas HospitalSasken Communication Technologies Phone: Elatelet mean volume (Bld) [Entitic vol]9.5 fL8.1 - 13.5 fLTuscarawas HospitalSasken Communication Technologies Phone: Platelets (Bld) [#/Vol]216 10*3/uLTuscarawas HospitalSasken Communication Technologies Phone: RBC (Bld) [#/Vol]4.90 10*6/uL3.95 - 5.11 m/[employer] Phone: RBC morphology finding Nom (Bld)NOT REPORTEDTuscarawas HospitalSasken Communication Technologies Phone: segmented neutrophils/100 WBC (Bld)87 %High36 - 65 % [employer] Phone: segs Cgdgjove31.02[facility] Memorial HospitalHackHands Phone: WBC (Bld) [#/Vol]18.4 10*3/uLDavis Memorial HospitalHackHands Phone: WBC MorphologyNOT REPORTEDHackHands Phone: cT CHEST W CONTRASTOrdered By: Albert Ibrahim on 59-10-9254Faa/increased bilateral ground-glass infiltrates. Differential considerations include infectious, inflammatory, and neoplastic etiologies. Prominent pulmonary artery may reflect pulmonary artery hypertension. This may account for the right hilar fullness as no distinct mass or pathologic lymphadenopathy is noted.[employer] Phone: eXAMINATION: CT OF THE CHEST WITH [...] is larger than the ascending aorta and fiienffu85 mm in diameter. Calcific coronary artery disease noted. No hilar mass. Right and left pulmonary arteries appear prominent bilaterally. Lungs/pleura: Bilateral patchy ground-glass infiltrates. Right middle lobe consolidation. Upper Abdomen: Normal Soft Tissues/Bones: [employer] Phone: edi, [facility] Incoming Radiant Results From [employer] - 04/21/2019 8:41 PM EST EXAMINATION: CT [...] distinct mass or pathologic lymphadenopathy is noted. [employer] Phone: Hepatic function panelOrdered By: Wesly Whitten on [id number] [Mass/Vol]3.9 g/dL3.5 - 5.2 g/dLHackHands Phone: albumin/Globulin [Mass ratio]1.3 {ratio}[employer] Phone: aLP [Catalytic activity/Vol]95 U/L35 - 104 U/LMOnaro Phone: aLT [Catalytic activity/Vol]10 U/L5 - 33 U/[employer] Phone: aST [Catalytic activity/Vol]13 U/L<32[employer] Phone: bilirubin [Mass/Vol]0.33 mg/dL0.3 - 1.2 mg/dLH[employer] Phone: bilirubin, IndirectCANNOT BE CALCULATED0 - 1 mg/dL [employer] Phone: bilirubin.indirect [Mass/Vol]mg/dL<0.31 mg/dLVeterans Health Administration Health Work Phone: GlobulinNOT REPORTED1.5 - 3.8 g/dLMercy Health Work Phone: protein [Mass/Vol]6.9 g/dL6.4 - 8.3 g/dLVeterans Health Administration Health Work Phone: lactic AcidOrdered By: Albert Ibrahim on 04-21-2019 Lactate [Moles/Vol]0.6 mmol/L0.5 - 2.2 mmol/LMercy Health Work Phone: [phone]-SZTWcokwud By: Wesly Whitten on [phone] Coag (PPP) [Relative time]1.0 {INR}[facility] Programeter Work Phone: pT Coag (PPP) [Time]10 sMercy Health Work Phone: UrinalysisOrdered By: Wesly Whitten on 04-21-2019 Bilirubin UrineNegativeNEGATIVEMerConsulted Health Work Phone: color, UAYELLOWYELLOWMer Health Work Phone: Glucose, UrNegativeNEGATIVEMercy Health Work Phone: Interpretation and review of laboratory results AbnormalVeterans Health Administration Health Work Phone: Ketones Ql (U)NegativeNEGATIVEMercy Health Work Phone: leukocyte esterase Test strip Ql (U)NegativeNEGATIVE [facility]y [facility] Work Phone: Nitrite, UrineNegativeNEGATIVEMercy Health Work Phone: pH, UA6.5Mer Health Work Phone: protein, UANegativeNEGATIVEMercy Health Work Phone: specific [place], UA<1.005LowMer Health Work Phone: Turbidity UACLEARCLEARVeterans Health Administration Sinobpo Phone: Urinalysis CommentsNOT REPORTEDTuscarawas HospitalSasken Communication Technologies Phone: Urine HgbNegativeNEGATIVEVeterans Health Administration Sinobpo Phone: Urobilinogen, UrineNormalNormalVeterans Health Administration Sinobpo Phone: XR CHEST STANDARD (2 VW)Ordered By: Albert Ibrahim on 47-24-1961Kcf right hilar fullness. Mild edema. Recommend CT chest with IV contrast.[employer] Phone: eXAMINATION: TWO XRAY VIEWS OF THE CHEST 04/21/2019 6:14 pm COMPARISON: January 13, 2019 HISTORY: ORDERING SYSTEM PROVIDED HISTORY: cough TECHNOLOGIST PROVIDED HISTORY: cough FINDINGS: New right hilarfullness. Mild edema. Small bilateral pleural effusions. Heart and mediastinum normal. Bony thorax normal.[employer] Phone: edi, pn Incoming Radiant Results From [employer] Eclipse - 04/21/2019 6:21 PM EST EXAMINATION: TWO XRAY VIEWS OF THE CHEST 04/21/2019 6:14 pm COMPARISON: January 13, 2019 HISTORY: ORDERING SYSTEM PROVIDED HISTORY: cough TECHNOLOGIST PROVIDED HISTORY: cough FINDINGS: New right hilar fullness. Mild edema. Small bilateral pleural effusions. Heart and mediastinum normal. Bony thorax normal. IMPRESSION: New right hilar fullness. Mild edema. Recommend CT chest with IV contrast. [employer] Phone: basic Metabolic Panel w/ Reflex to MGOrdered By: Harish Sebastian on [id number] gap [Moles/Vol]12 mmol/L9 - 17 mmol/LMthe university of toledo medical centery [employer] Phone: bun/Cre Goyek56QjunJzekn Health Work Phone: calcium [Mass/Vol]9.2 mg/dL8.6 - 10.4 mg/dLTuscarawas HospitalSasken Communication Technologies Phone: chloride [Moles/Vol]95 mmol/LLow98 - 107 mmol/LMIQ [employer] Phone: cO2 [Moles/Vol]28 mmol/L20 - 31 mmol/LMOnaro Phone: creatinine [Mass/Vol]0.66 mg/dL0.5 - 0.9 mg/dLTuscarawas HospitalSasken Communication Technologies Phone: GFR >60>60 mL/minTuscarawas HospitalSasken Communication Technologies Phone: GFR CommentTuscarawas HospitalSasken Communication Technologies Phone: comment on above:Average GFR for 50-59 years old: 93 mL/min/1.73sq m Chronic Kidney Disease: <60 mL/min/1.73sq m Kidney failure: <15 mL/min/1.73sq m eGFR calculated using average adult body mass. Additional eGFR calculator available at: http://www.[employer]/multiple_crcl_2012.htm GFR Non->60>60 mL/minTuscarawas HospitalSasken Communication Technologies Phone: GFR StagingTuscarawas HospitalSasken Communication Technologies Phone: comment on above:Stage 1: Some kidney damage normal GFR Stage 2: Mild kidney damage GFR 60-89 Stage 3: Moderate kidney damage GFR 30-59 Stage 4: Severe kidney damage GFR 15-29 Stage 5: Severe kidney damage GFR <15 ESRD - chronic treatment by dialysis or transplant Glucose [Mass/Vol]105 mg/fUAona36 - 99 mg/dLTuscarawas HospitalSasken Communication Technologies Phone: Interpretation and review of laboratory results AbnormalTuscarawas HospitalSasken Communication Technologies Phone: potassium [Moles/Vol]4.6 mmol/L3.7 - 5.3 mmol/LMthe university of toledo medical centery Program[employer] Work Phone: sodium [Moles/Vol]135 mmol/L135 - 144 mmol/LMIQ Elitey [employer] Phone: Urea nitrogen [Mass/Vol]15 mg/dL6 - 20 mg/dLTuscarawas HospitalSasken Communication Technologies Phone: cBC Auto DifferentialOrdered By: Harish Sebastian on [id number] Eos #0.50HighTuscarawas HospitalSasken Communication Technologies Phone: absolute Immature Granulocyte0.03Tuscarawas HospitalSasken Communication Technologies Phone: absolute Lymph #2.66T[facility]caraw[facility] HospitalSasken Communication Technologies Phone: absolute [place] #0.65Tuscarawas HospitalSasken Communication Technologies Phone: basophils (Bld) [#/Vol]0.08 10*3/uLTuscarawas HospitalSasken Communication Technologies Phone: basophils/100 WBC (Bld)1 %0 - 2 %[employer] Phone: differential TypeNOT REPORTEDTuscarawas HospitalSasken Communication Technologies Phone: eosinophils/100 WBC (Bld)5 %High1 - 4 %[employer] Phone: erythrocyte distribution width (RBC) [Ratio]14.0 %11.8 - 14.4 %[employer] Phone: Hematocrit (Bld) [Volume fraction]48.8 %High36.3 - 47.1 %[employer] Phone: Hemoglobin (Bld) [Mass/Vol]15.3 g/xFUyyo85.9 - 15.1 g/dLTuscarawas HospitalSasken Communication Technologies Phone: Immature granulocytes/100 WBC (Bld)0 %0Tuscarawas HospitalSasken Communication Technologies Phone: Interpretation and review of laboratory results AbnormalTuscarawas HospitalSasken Communication Technologies Phone: lymphocytes/100 WBC (Bld)25 %24 - 43 %[employer] Phone: MCH (RBC) [Entitic mass]29.4 pg25.2 - 33.5 pgTuscarawas HospitalSasken Communication Technologies Phone: MCHC (RBC) [Mass/Vol]31.4 g/dL28.4 - 34.8 g/dLHackHands Phone: MCV (RBC) [Entitic vol]93.8 fL82.6 - 102.9 fLHackHands Phone: Monocytes/100 WBC (Bld)6 %3 - 12 %[employer] Phone: NRBC Automated0.00.0 per 100 WBCHackHands Phone: platelet EstimateNOT REPORTEDHackHands Phone: platelet mean volume (Bld) [Entitic vol]9.3 fL8.1 - 13.5 fLHackHands Phone: Platelets (Bld) [#/Vol]275 10*3/uLHackHands Phone: RBC (Bld) [#/Vol]5.20 10*6/uLHigh3.95 - 5.11 m/uLHackHands Phone: rBC morphology finding Nom (Bld)NOT REPORTEDTuscarawas HospitalSasken Communication Technologies Phone: segmented neutrophils/100 WBC (Bld)63 %36 - 65 %[employer] Phone: segs Absolute6.54H[employer] Phone: WBC (Bld) [#/Vol]10.5 10*3/[employer] Phone: WBC MorphologyNOT REPORTEDHackHands Phone: cT Head WO ContrastOrdered By: Harish Sebastian on [id number] acute intracranial abnormality.[employer] Phone: eXAMINATION: CT OF THE HEAD WITHOUT [...] abnormality of the visualized skull or soft tissues.[employer] Phone: edi, [facility] Incoming Radiant Results From [employer] - 04/12/2019 2:07 PM EST EXAMINATION: CT [...] soft tissues. IMPRESSION: No acute intracranial abnormality. [employer] Phone: No Panel InformationOrdered By: Harish Sebastian on [id number] spine: 1. Mild to moderate degenerative changes [...] CMC joint. 3. No acute fracture or dislocation.[employer] Phone: eXAMINATION: THREE XRAY VIEWS OF THE [...] in the capitate. Atherosclerotic calcification of the vasculature.[employer] Work Phone: eroseann, Bridgette Incoming Radiant Results From [employer] - 04/12/2019 11:50 AM EST EXAMINATION: THREE [...] joint. 3. No acute fracture or dislocation. [employer] Phone: TroponinOrdered By: Harish Sebastian on 04-12-2019 Troponin InterOnaro Phone: comment on above:Reference Range: <0.03 Within reference range. 0.03-0.09 Possible myocardial damage. Repeat at appropriate intervals to rule out chronic elevation. >= 0.10 Indicative of myocardial damage. Patients with high levels of Biotin oral intake (i.e >5mg/day) may have falsely decreased Troponin T levels. Samples collected within 8 hours of biotin intake may require additional information for diagnosis. Troponin T<0.03<0.03 ng/mLTuscarawas HospitalSasken Communication Technologies Phone: comment on above:Troponin T results cannot be compared to Troponin-I results.Troponin, High SensitivityNOT REPORTED0 - 14 ng/LMOnaro Phone: Neurosurgery Office/Clinic Noteon 03-02-2019 Neurosurgery Office/Clinic NoteChief Complaint patient states back History of Present Illness Jonatan is here to follow up on low back coupled with bilateral leg pain. There is subjective weakness. There is paresthesia in both feet as well as stabbing pain. She reports symptoms consistent with claudication. She completed imaging at [facility], but did not bring this with her [...] treatments: PM, water therapy (3 years ago, [facility], [facility]), home exercise, gabapentin, ibuprofen, percocet, MR, steroid, [...] DM, unknown control 5. hx of CAD, [place] and cardiac stenting 6. hx of prior blood clot (abdominal) with vascular graft 7. tobacco use 8. plavix use Plan: 1. referral to tertiary medical center, she prefers [facility] 2. f/u here as needed we reviewed the lumbar MRI report/findings in office, no imaging available to review at today's visit I have reviewed her case with Dr. Rivers, recommendation for referral to tertiary [facility] secondary to surgical risk we discussed locations, Jonatan would like referral to [place]- this was initiated at today's visit she [...] Exercise frequency: 1-2 times/week. Exercise type: Swimming, [place] [employer]-Water Therapy-1 year ago-3-5 sessions did not help [...] signed by Deion Fritz CNP 03/02/19 11:27 ESTNormOhioHealth Shelby Hospital Provider Letteron [phone] Letter Vahid Nagy CNP Re: Jonatan Sher Date of Visit: 03/02/2019 Dear Vahid Nagy, Thank you for referring Jonatan to my office. Attached you will find my office note. Please let me know if you have any questions or concerns. Sincerely, Deion Fritz CNP [facility] [place] [address] The following document(s) were included in the letter: March 02, 2019 11:14:11 EST - (03/02/2019) Neurosurgery Office Visit Note NormalSamaritan North Health CenterCBC auto differentialon [id number] (Bld) [#/Vol]0.06 10*3/[facility] [place], KYBasophils/100 WBC (Bld)1 %0 - 2 % [facility], KYDifferential TypeNOT REPORTEDOhiohealth Doctors Hospital [place], KYEosinophils (Bld) [#/Vol]0.34 10*3/[facility] [place], KYEosinophils/100 WBC (Bld)4 %1 - 4 %[facility]- [place], KYErythrocyte distribution width (RBC) [Ratio]14.5 %High11.8 - 14.4 %[facility], CARLOSHematocrit (Bld) [Volume fraction]46.3 %36.3 - 47.1 %[facility] [place], CARLOSHemoglobin (Bld) [Mass/Vol]14.9 g/dL11.9 - 15.1 g/dLOhiohealth Doctors Hospital [place], NVImmature granulocytes (Bld) [#/Vol]1 %Oorm5JckbyAdena [facility]- [place], [place] Immature granulocytes (Bld) [#/Vol]0.05 10*3/[facility] [place] Interpretation and review of laboratory resultsAbnormalKeenan Private Hospital, [place] Lymphocytes (Bld) [#/Vol]2.65 10*3/[facility] [place], NVLymphocytes/100 WBC (Bld)28 %24 - 43 %[facility], NVMCH (RBC) [Entitic mass]29.9 pg25.2 - 33.5 pgKeenan Private Hospital, NVMCHC (RBC) [Mass/Vol]32.2 g/dL28.4 - 34.8 g/dLKeenan Private Hospital, NVMCV (RBC) [Entitic vol]92.8 fL82.6 - 102.9 fLKeenan Private Hospital, [place] Monocytes (Bld) [#/Vol]0.59 10*3/[facility] [place], CARLOSMonocytes/100 WBC (Bld)6 %3 - 12 %[facility], CARLOSPlatelet mean volume (Bld) [Entitic vol]9.6 fL8.1 - 13.5 fLKeenan Private Hospital, KYPlatelets (Bld) [#/Vol]NOT REPORTEDKeenan Private Hospital, KYPlatelets (Bld) [#/Vol]265 10*3/[facility]- [place], KYRBC (Bld) [#/Vol]4.99 10*6/uL3.95 - 5.11 m/[facility]- [place], NVRBC morphology finding Nom (Bld)NOT REPORTEDKeenan Private Hospital, NVSegmented neutrophils/100 WBC (Bld)60 %36 - 65 % [facility], KYSegs Absolute5.89[facility]- [place], KYWBC (Bld) [#/Vol]9.6 10*3/uLKeenan Private Hospital, KYWBC (Bld) [#/Vol]0.0 10*3/uL0.0 per 100 WBCKeenan Private Hospital, KYWBC MorphologyNOT REPORTEDKeenan Private Hospital, KYCTA ABDOMINAL AORTA W BILAT RUNOFF W CONTRASTon [id number], Mhpn Incoming Radiant Results From [employer]/Pacs - 02/23/2019 7:00 PM EST EXAMINATION: CTA [...] arteries. Circumferential atherosclerotic plaque identified. The distal [place] abdominal aorta is completely occluded, as is the proximal aspect of the common iliac arteries bilaterally. There is reconstitution of flow within the [place] vie[place] common iliac artery bifurcation, with flow into the internal and external iliac arteries bilaterally. There is also an aorto bi femoral bypass, within asked most this to the common femoral arteries bilaterally. There was a previous fem-fem bypass graft which has failed. Outflow: Right lower extremity: The [place] SFA is completely occluded. The aortofemoral anastomosis [...] is chronic occlusion of the distal abdominal [place] vieux aorta through the level of the common iliac arteries, with reconstitution through collateral flow at the level of the internal and external iliac arteries bilaterally. 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 [facility] HospitalAmy acute intra aortic thrombus is identified. 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 Because of this chronic [place] vieux abdominal aortic occlusion, the patient has undergone [...] in the abdomen and pelvis without acute process.[facility] HospitalDANIELEAMINATION: CTA OF THE AORTA WITH LOWER EXTREMITY [...] arteries. Circumferential atherosclerotic plaque identified. The distal [place] abdominal aorta is completely occluded, as is the proximal aspect of the common iliac arteries bilaterally. There is reconstitution of flow within the [place] common iliac artery bifurcation, with flow into the internal and external iliac arteries bilaterally. There is also an aorto bi femoral bypass, within asked most this to the common femoral arteries bilaterally. There was a previous fem- fem bypassgraft which has failed. Outflow: Right lower extremity: The lac vieux SFA is completely occluded. The aortofemoral anastomosis [...] artery as it crosses over the distal tibia.[facility]- [place], [place] Comprehensive metabolic panelon [id number] [Mass/Vol]3.7 g/dL3.5 - 5.2 g/dLAdena Fayette Medical Center- [place], KYAlbumin/Globulin [Mass ratio]1.1 {ratio}[facility]- [place], KYALP [Catalytic activity/Vol]85 U/L35 - 104 U/LMerc Health- [place], KYALT [Catalytic activity/Vol]13 U/L5 - 33 U/LMfostoria city hospital Health- [place], KYAnion gap [Moles/Vol]12 mmol/L9 - 17 mmol/LMfostoria city hospital Health- [place], KYAST [Catalytic activity/Vol]13 U/L<32[facility]- [place], KYBilirubin Ql (U)<0.10Low0.3 - 1.2 mg/dLVeterans Health Administration Health- [place], KYBun/Cre Crbyv19TgqxLtjii Health- [place], KYCalcium [Mass/Vol]9.1 mg/dL8.6 - 10.4 mg/dLVeterans Health Administration Health- [place], KYChloride [Moles/Vol]100 mmol/L98 - 107 mmol/LMfostoria city hospital Health- [place], KYCO2 [Moles/Vol]27 mmol/L20 - 31 mmol/L [facility]- [place], KYCreatinine [Mass/Vol]0.53 mg/dL0.5 - 0.9 mg/dLAdena Fayette Medical Center- [place], KYGFR >60>60 mL/minVeterans Health Administration Health- [place], KYGFR Non->60>60 mL/minVeterans Health [facility]- [place], KYGlucose [Mass/Vol]139 mg/iAHzjw43 - 99 mg/dLAdena Fayette Medical Center- [place], KYInterpretation and review of laboratory resultsAbnormal [facility]- [place], KYPotassium [Moles/Vol]3.8 mmol/L3.7 - 5.3 mmol/LMfostoria city hospital Health- [place], KYProtein [Mass/Vol]7.0 g/dL6.4 - 8.3 g/dLVeterans Health Administration Health- [place], KYSodium [Moles/Vol]139 mmol/L135 - 144 mmol/LMfostoria city hospital Health- [place], KYUrea nitrogen [Mass/Vol]14 mg/dL6 - 20 mg/dLKeenan Private Hospital, KYLipaseon [id number] [Catalytic activity/Vol]20 U/L13 - 60 U/LMercBaptist Hospital, CARLOSMRI LUMBAR SPINE WO CONTRASTon . Degenerative changes in the lumbar spine lead severe spinal canal stenosis and moderate bilateral neural foraminal narrowing at L4- L5. 2. Moderate to severe spinal canal stenosis and moderate right neural foraminal narrowing at L5-S1. 3. Possible thrombus in the abdominal aorta. Recommend CTA ofthe abdomen and pelvis.[facility], CARLOSEXAMINATION: MRI OF THE LUMBAR SPINE WITHOUT [...] faxed to the office of the licensed caregiver.[facility] HospitalAudelia Mhpn Incoming Radiant Results From [employer] - 02/23/2019 1:49 PM EST EXAMINATION: MRI [...] Recommend CTA of the abdomen and pelvis. [facility] VANeredekal.comMetabolic Panelon [id number]/1.73 sq M predicted among non-blacks MDRD (S/P/Bld) [Vol rate/Area][facility] VAAUM Cardiovascular CARLOSComment on above: Average GFR for 50-59 years old: 93 mL/min/1.73sq m Chronic Kidney Disease: <60 mL/min/1.73sq m Kidney failure: <15 mL/min/1.73sq m eGFR calculated using average adult body mass. Additional eGFR calculator available at: http://www.[employer]/multiple_crcl_2012.htm Stage 1: Some kidney damage normal GFR Stage 2: Mild kidney damage GFR 60-89 Stage 3: Moderate kidney damage GFR 30-59 Stage 4: Severe kidney damage GFR 15-29 Stage 5: Severe kidney damage GFR <15 ESRD - chronic treatment by dialysis or transplant Protime-INRon [id number] Coag (PPP) [Relative time]1.0 {INR}[facility]- [place], KYPT Coag (PPP) [Time]10 sMSelect [facility] Specialty [facility], Inc [place], KYTroponinon [id number] I.cardiac [Mass/Vol][facility] [place], KYComment on above:Reference Range: <0.03 Within reference range. 0.03-0.09 Possible myocardial damage. Repeat at appropriate intervals to rule out chronic elevation. >= 0.10 Indicative of myocardial damage. Patients with high levels of Biotin oral intake (i.e >5mg/day) may have falsely decreased Troponin T levels. Samples collected within 8 hours of biotin intake may require additional information for diagnosis. Troponin T.cardiac [Mass/Vol]ug/L<0.03 ng/mLKeenan Private Hospital, KYComment on above:Troponin T results cannot be compared to Troponin-I results.Troponin, High SensitivityNOT REPORTED0 - 14 ng/LMercy Health- [place], KYUrinalysis with microscopicon [id number], UANOT REPORTEDNoneMey Health- [place], [place] Bacteria, UANOT REPORTEDNoneMercy Health- [place], KYBilirubin UrineNegativeNEGATIVE [facility]- [place], KYCasts UANOT REPORTED/LPFMercy Health- [place], KYColor, UAYELLOW YELLOWTuscarawas Hospitalcy Health- [place], KYCrystals UANOT REPORTEDNone /HPFMercy Health- [place], [place] Epithelial Cells UANoneMey Health- [place], KYGlucose, UrNegativeNEGATIVEVeterans Health Administration Health- [place], KYInterpretation and review of laboratory resultsAbnormalMercy Health- [place], KYKetones Ql (U)NegativeNEGATIVEMercy Health- [place], KYLeukocyte esterase Test strip Ql (U)NegativeNEGATIVEMercy Health- [place], KYMucus, UANOT REPORTEDNoneMercy Health- [place], KYNitrite, UrineNegativeNEGATIVEMercy Health- [place], KYOther Observations UANOT REPORTEDNOT REQ.[facility]- [place], KYpH, UA7.0[facility]- [place], KYProtein (U) [Mass/Vol]NegativeNEGATIVEMercy Health- [place], KYRBC (U) [#/Vol]NoneMercy Health- [place], KYRenal Epithelial, UrineNOT REPORTED0 /HPFMercy Health- [place], KYSpecific [place], UA<1.005LowMercy Health- [place], KYTrichomonas, UA NOT REPORTEDNoneMercy Health- [place], KYTurbidity UACLEARCLEARMercy Health- [place], [place] Urinalysis CommentsNOT REPORTEDMercy Health- [place], KYUrine HgbNegativeNEGATIVE [facility]- [place], KYUrobilinogen, UrineNormalNormalMercy Health- [place], KYWBC, UA NoneMercy Health- [place], KYYeast, UANOT REPORTEDNoneMercy Health- [place], [place]-[facility]- [place], KYNeurosurgery Office/Clinic Noteon [phone] Office/Clinic NoteChief Complaint patient states back History [...] treatments: PM, water therapy (3 years ago, [facility], worse), home exercise, gabapentin, ibuprofen, percocet, [...] DM, unknown control 5. hx of CAD, [place] 6. hx of prior blood clot 7. tobacco use 8. plavix use Plan: 1. MRI lumbar 2. XR lumbar 3. obtain current A1C 4. f/u on completion recommend MRI and XR lumbar with flex ex views, she wishes to obtain in [place] we will obtain A1C info from her [...] Exercise frequency: 1-2 times/week. Exercise type: Swimming, [place] [employer]-Water Therapy-1 year ago-3-5 sessions did not help [...] by Deion Fritz CNP [place] 02/02/19 08:21 ESTNormOhioHealth Shelby Hospital Provider Letteron [phone] Letter Vahdi Nagy CNP [address] [place] [address] Re: Jonatan Olivarez Date of Visit: 01/28/2019 Dear Vahid Nagy, Thank you for referring Jonatan to my office. Attached you will find my office note. Please let me know if you have any questions or concerns. Sincerely, Deion Fritz CNP [facility] [address] [address] The following document(s) were included in the letter: January 28, 2019 10:57:17 EDT - (01/28/2019) Neurosurgery Office Visit Note NormalSamaritan North Health CenterBasic Metabolic Panel w/ Reflex to MGon [id number] gap [Moles/Vol]11 mmol/L9 - 17 mmol/LMercy Health- [place], KYBun/Cre Zjplc63Wcfzp Health- [place], KYCalcium [Mass/Vol]9.4 mg/dL8.6 - 10.4 mg/dLVeterans Health Administration Health- [place], KYChloride [Moles/Vol]103 mmol/L98 - 107 mmol/LMercy Health- [place], [place] CO2 [Moles/Vol]28 mmol/L20 - 31 mmol/LMercy [facility]- [place], KYCreatinine [Mass/Vol] 0.56 mg/dL0.5 - 0.9 mg/dLTuscarawas Hospitalcy Health- [place], KYGFR >60>60 mL/min [facility]- [place], KYGFR Non->60>60 mL/minVeterans Health Administration Health- [place], [place] Glucose [Mass/Vol]126 mg/wVHyjn70 - 99 mg/dLVeterans Health [facility] Health- [place], KYInterpretation and review of laboratory resultsAbnormalVeterans Health [facility] Health- [place], KYPotassium [Moles/Vol]4.0 mmol/L3.7 - 5.3 mmol/LMercy Health- [place], KYSodium [Moles/Vol]142 mmol/L135 - 144 mmol/LMercy Health- [place], KYUrea nitrogen [Mass/Vol]8 mg/dL6 - 20 mg/dLKeenan Private Hospital, KYCBC Auto Differentialon [id number] (Bld) [#/Vol]0.05 10*3/[facility], KYBasophils/100 WBC (Bld)1 %0 - 2 %[facility], KYDifferential TypeNOT REPORTEDKeenan Private Hospital, KYEosinophils (Bld) [#/Vol]0.24 10*3/[facility], KYEosinophils/100 WBC (Bld)3 %1 - 4 %[facility], KYErythrocyte distribution width (RBC) [Ratio]14.5 %High11.8 - 14.4 %[facility], KYHematocrit (Bld) [Volume fraction]45.7 %36.3 - 47.1 %[facility], KYHemoglobin (Bld) [Mass/Vol]14.7 g/dL11.9 - 15.1 g/dLKeenan Private Hospital, KYImmature granulocytes (Bld) [#/Vol]0 %0[facility], KYImmature granulocytes (Bld) [#/Vol]10*3/[facility], KYInterpretation and review of laboratory resultsAbnormCleveland Clinic [facility], KYLymphocytes (Bld) [#/Vol]1.16 10*3/[facility], KYLymphocytes/100 WBC (Bld)15 %Low24 - 43 %[facility], KYMCH (RBC) [Entitic mass]29.2 pg25.2 - 33.5 pgKeenan Private Hospital, [place] MCHC (RBC) [Mass/Vol]32.2 g/dL28.4 - 34.8 g/dLKeenan Private Hospital, KYMCV (RBC) [Entitic vol]90.7 fL82.6 - 102.9 fLKeenan Private Hospital, KYMonocytes (Bld) [#/Vol] 0.58 10*3/[facility], KYMonocytes/100 WBC (Bld)7 %3 - 12 %[facility] [place], CARLOSPlatelet mean volume (Bld) [Entitic vol]9.2 fL8.1 - 13.5 fLAdena Fayette Medical Center- [place], CARLOSPlatelets (Bld) [#/Vol]NOT REPORTEDAdena Fayette Medical Center- [place], KYPlatelets (Bld) [#/Vol]201 10*3/uLAdena Fayette Medical Center- [place], KYRBC (Bld) [#/Vol]5.04 10*6/uL3.95 - 5.11 m/uLAdena Fayette Medical Center- [place], CARLOSRBC morphology finding Nom (Bld)NOT REPORTEDKeenan Private Hospital, CARLOSSegmented neutrophils/100 WBC (Bld)74 %High36 - 65 %[facility] CenterPutney, CARLOSSegs Absolute5.79[facility], KYWBC (Bld) [#/Vol]0.0 10*3/uL0.0 per 100 WBCAdena Fayette Medical Center- [place], CARLOSWBC (Bld) [#/Vol]7.8 10*3/uLAdena Fayette Medical Center- [place], KYWBC MorphologyNOT REPORTEDAdena [facility] Center- [place], CARLOSMetabolic Panelon [id number]/1.73 sq M predicted among non-blacks MDRD (S/P/Bld) [Vol rate/Area][facility] Centermobileo VACARLOSComment on above:Stage 1: Some kidney damage normal [...] body mass. Additional eGFR calculator available at: http://www.[employer]/multiple_crcl_2012.htm Otheron [id number], Mhpn Incoming Radiant Results From [employer]/Pacs - 01/13/2019 3:55 PM EDT EXAMINATION: THREE [...] relate to a biceps tendon sheath body. [facility], KYEXAMINATION: THREE XRAY VIEWS OF THE CERVICAL [...] may relate to a biceps tendon sheath body.[facility], KY1. Normal cervical spine alignment with no acute abnormality. 2. Multilevel cervical degenerative changes. 3. Stable appearance of the chest with mediastinal/hilar lymphadenopathy. No acute traumaticthoracic abnormality. 4. Normal left shoulder alignment with milder glenohumeral arthropathy. No acute abnormality. 5. 4 mm ossicle of the left proximal arm which may relate to a biceps tendon sheathbody.[facility] Healthcareniwestern [facility] [id number] I.cardiac [Mass/Vol][place], KYComment on above: Reference Range: <0.03 Within reference range. 0.03-0.09 Possible myocardial damage. Repeat at appropriate intervals to rule out chronic elevation. >= 0.10 Indicative of myocardial damage. Patients with high levels of Biotin oral intake (i.e >5mg/day) may have falsely decreased Troponin T levels. Samples collected within 8 hours of biotin intake may require additional information for diagnosis. Troponin T.cardiac [Mass/Vol]ug/L<0.03 ng/mLKeenan Private Hospital, NVComment on above:Troponin T results cannot be compared to Troponin-I results.Troponin, High SensitivityNOT REPORTED0 - 14 ng/LMTogus VA Medical Centeroponin I.cardiac [Mass/Vol][facility] [facility] NVComment on above:Reference Range: <0.03 Within reference range. [...] ng/LMercy [facility]- [place], [place]Urinalysis, reflex to microscopicon 76-66-8611Uemjytplb UrineNegativeNEGATIVEMercy Health- [place], [place] Color, UAYELLOWYELLOWMercy Health- [place], [place]Glucose, UrNegativeNEGATIVEMercy Health- [place], KYKetones Ql (U)NegativeNEGATIVEMercy Health- [place], KYLeukocyte esterase Test strip Ql (U)NegativeNEGATIVEMercy Health- [place], KYNitrite, Urine NegativeNEGATIVEMercy Health- [place], KYpH, UA6.0[facility] [place], [place]Protein (U) [Mass/Vol]NegativeNEGATIVEMercy Health- [place], KYSpecific [place], UA1.015[facility] [place], KYTurbidity UACLEARCLEARMercy Health- [place], [place]Urinalysis CommentsNOT REPORTEDMercy Health- [place], KYUrine HgbNegativeNEGATIVEMercy Health- [place], [place] Urobilinogen, UrineNormalNormalMercy Health- [place], KYXR LUMBAR SPINE (2-3 VIEWS)on 02-36-3010TDVGGITCNPY: THREE XRAY VIEWS OF THE LUMBAR SPINE [...] bilateral sacroiliac and hip alignment. No acute fracture.[facility]- [place], [place]Edi, [place]hpn Incoming Radiant Results From [employer] - 01/13/2019 3:55 PM EDT EXAMINATION: THREE [...] lumbar spine degenerative disc and joint disease. [facility] [place]1. Normal lumbar spine alignment with no acute abnormality. 2. Multilevel lumbar spine degenerativedisc and joint disease.[facility], [place]XR SHOULDER LEFT (MIN 2 VIEWS)on 12-77-5761Tqlf calcific tendinosis of left supraspinatus. Mild degenerative changes of the left glenohumeral joint. Mild degenerative changes of the left acromioclavicular joint.[facility], [place] EXAMINATION: THREE XRAY VIEWS OF THE LEFT SHOULDER 01/12/2019 3:48 pm COMPARISON: Left shoulder radiographs dated 08/03/2017 HISTORY: ORDERING SYSTEM PROVIDED HISTORY: Pain of left upper extremity FINDINGS: Mild calcific tendinosis of left supraspinatus. Mild degenerative changes of the left glenohu meral joint. Mild degenerative changes of the left acromioclavicular joint. Subacromial space is maintained.[facility] Incoming Radiant Results From [employer] - 01/12/2019 4:20 PM EDT EXAMINATION: THREE [...] degenerative changes of the left acromioclavicular joint. [facility], KYHematologyon 67-82-3880Wzvkelzutd (Bld) [Mass/Vol]Negative (NEG)[facility] Work Phone: Comment on above:Note: Responsible Observer: KLEBER TREJO ([id number])Laboratory - Microbiology and Antimicrobial susceptibilityOrdered By: Vahid Nagy on 17-98-5225Ffufhhgw identified Cx Nom (Unsp spec)MANYAbnormal (NONE )[facility] Work Phone: Comment on above:Note: Responsible Observer: KLEBER TREJO ([id number])Laboratory - UrinalysisOrdered By: Vahid Nagy on 09-30-2018 Epithelial cells LM Ql (Urine sed)2 TO 5 /HPF(0-5 )[facility] Work Phone: Comment on above:Note: Responsible Observer: KLEBER [id number])Metabolic Panelon 32-35-2317Menmfktik.direct [Mass/Vol]Negative (NEG)[facility] Work Phone: Comment on above:Note: Responsible Observer: KLEBER TREJO ([id number])Glucose [Mass/Vol]Negative(NEG)[facility] Work Phone: Comment on above:Note: Responsible Observer: KLEBER TREJO ([id number])Protein [Mass/Vol]Negative(NEG)[facility] Work Phone: Comment on above:Note: Responsible Observer: KLEBER TREJO ([id number])No Panel InformationOrdered By: Vahid Nagy on 09-30-2018 Acetoacetic Acid,UrNegative(NEG )[facility] Work Phone: Comment on above:Note: Responsible Observer: KLEBER TREJO ([id number])Bilirubin, SemiQt,UrNegative(NEG )[facility] Work Phone: Comment on above:Note: Responsible Observer: KLEBER [id number])Casts10 TO 20 HYALINE /LPF(0-8 )[facility] Work Phone: Comment on above:Note: Reference range defined for non-centrifuged specimen.Responsible Observer: KLEBER TREJO ([id number]) Glucose,Semi-qnt,UrNegative(NEG )[facility] Work Phone: Comment on above:Note: Responsible Observer: KLEBER TREJO ([id number])Hemoglobin, UrNegative(NEG )[facility] Work Phone: Comment on above:Note: Responsible Observer: KLEBER TREJO ([id number])Leuckocyte EsteraseNegative(NEG )[facility] Work Phone: Comment on above:Note: Responsible Observer: KLEBER TREJO ([id number])Nitrite,UrPositiveAbnormal(NEG )[facility] Work Phone: Comment on above:Note: Responsible Observer: KLEBER TREJO ([id number])Protein, Semi-qnt,UrNegative(NEG )[facility] Work Phone: Comment on above:Note: Responsible Observer: KLEBER TREJO ([id number])Urine RBC's0 TO 2 /HPF(0-4 )[facility] Work Phone: Comment on above:Note: Reference range defined for non-centrifuged specimen.Responsible Observer: KLEBER TREJO ([id number])Urine WBC's0 TO 2 /HPF(0-5 )[facility] Work Phone: Comment on above:Note: Responsible Observer: KLEBER TREJO ([id number])OtherOrdered By: Vahid Nagy on 53-76-3522Zydh,Urine,CCSee Note [facility] Work Phone: Comment on above:Note: Specimen Description .CLEAN CATCH URINESpecial Requests NOT REPORTEDCulture KLEBSIELLA PNEUMONIAE >682807 CFU/MLReport Status FINAL 10/02/2018SUSCEPTIBILITYOrganism KLEBSIELLA PNEUMONIAEMethod MICAmikacin [...] <=20 SUSCEPTIBLEPiperacillin/Tazobactam <=4 SUSCEPTIBLEResponsible Observer: KLEBER TREJO ([id number])Reported PhysiciansSee NoteCardinal Cushing Hospital Work Phone: Comment on above:Note: Reported Physicians:Ordering: Attending: Vahid Calderón-----See NoteHealth [facility] Work Phone: Comment on above:Note: Responsible Observer: KLEBER TREJO ([id number])CommentNOT REPORTEDHealth [facility] Work Phone: [phone], RenalNOT REPORTED /HPF(0 )[facility] Work Phone: [phone] StrandsNOT REPORTED(NONE )[facility] Work Phone: Other ObservationsNOT REPORTED(NREQ )[facility] Work Phone: [phone] Lab:see noteCardinal C[facility] Hospital Work Phone: Comment on above:Note: INFOGRAPHIQS [address] [facility] [address] PH,Ur7.0(5.0-8.0 )[facility] Work Phone: Comment on above:Note: Responsible Observer: KLEBER TREJO ([id number])Reported PhysiciansSee NoteCardinal Cushing Hospital Work Phone: Comment on above:Note: Reported Physicians:Ordering: Joo Calderónpec. [place],Ur1.025(1.005-1.030 )[facility] Work Phone: Comment on above:Note: Responsible Observer: KLEBER TREJO ([id number])TrichomonasNOT REPORTED(NONE )[facility] Work Phone: TurbidityCLOUDYAbnormal(CLEAR )[facility] Work Phone: [phone] on above:Note: Responsible Observer: KLEBER Eagle0422)Urobilinogen,UrNormal(NORM )[facility] Work Phone: Comment on above:Note: Responsible Observer: LKEBER TREJO ([id number])Otheron 27-10-9052Pbbkuopbpfp Acid,UrNegative(NEG)[facility] Work Phone: Comment on above:Note: Responsible Observer: KLEBER TREJO ([id number])Leuckocyte EsteraseNegative(NEG)[facility] Work Phone: Comment on above:Note: Responsible Observer: KLEBER TREJO ([id number])Nitrite,UrPositiveAbnormal(NEG)[facility] Work Phone: Comment on above:Note: Responsible Observer: KLEBER TREJO ([phone])RBC (U) [#/Vol]0 TO 2 /HPF(0-4)[facility] Work Phone: Comment on above:Note: Reference range defined for non-centrifuged specimen.Responsible Observer: KLEBER TREJO ([id number])Urinalysis Ordered By: Vahid Nagy on 64-54-3208Xobmddxib sediment LM Ql (Urine sed)NOT REPORTED(NONE )[facility] Work Phone: [phone] (U)YELLOW(YEL )[facility] Work Phone: Comment on above:Note: Responsible Observer: KLEBER TREJO ([id number])Crystals LM Nom (Urine sed)NOT REPORTED /HPF(NONE )[facility] Work Phone: [phone] LM Ql (Urine sed)NOT REPORTED(NONE )[facility] Work Phone: Urinalysison 16-11-2675Kzwntiro LM.HPF (Urine sed) [#/Area]MANYAbnormal(NONE)[facility] Work Phone: Comment on above:Note: Responsible Observer: KLEBER TREJO ([id number])Casts LM.LPF (Urine sed) [#/Area]10 TO 20 HYALINE /LPF(0-8)[facility] Work Phone: Comment on above:Note: Reference range defined for non-centrifuged specimen.Responsible Observer: KLEBER TREJO ([id number])Epithelial cells LM.HPF (Urine sed) [#/Area]2 TO 5 /HPF(0-5)[facility] Work Phone: Comment on above:Note: Responsible Observer: KLEBER TREJO ([phone])WBC (U) [#/Vol]0 TO 2 /HPF(0-5)[facility] Work Phone: Comment on above:Note: Responsible Observer: KLEBER TREJO ([id number])Laboratory - Specimen informationOrdered By: Vahid Nagy on 17-74-5926Jqbei (U)N/ANormalCardinal Cushing Hospital Work Phone: No Panel InformationOrdered By: Vahid Nagy on 92-48-7891Axv Values NormalN/AAbnormal(NORMAL)[facility] Work Phone: [phone]/A(POS/NEG)[facility] Work Phone: BARN/A(POS/NEG)[facility] Work Phone: BUPN/A(POS/NEG)[facility] Work Phone: BZON/A(POS/NEG)[facility] Work Phone: COCN/A(POS/NEG)[facility] Work Phone: MDMAN/A(POS/NEG)[facility] Work Phone: METN/A(POS/NEG)[facility] Work Phone: [phone]/A(POS/NEG)[facility] Work Phone: [phone]/A(POS/NEG)[facility] Work Phone: OXYN/A(POS/NEG)[facility] Work Phone: [phone]/A(POS/NEG)[facility] Work Phone: Sent to LabN/A(Yes/No)[facility] Work Phone: Staff Members Zbozswl4Mzftfp(1 or 2)[facility] Work Phone: THCN/A(POS/NEG)[facility] Work Phone: [phone] TempN/ANormal(90-100)[facility] Work Phone: [phone] - Chemistry and Chemistry - challenge Ordered By: Vahid Nagy on 39-05-7034Ehmtcfl [Mass/Vol]118 mg/dLAbnormal (80-100)[facility] Work Phone: Laboratory - Hematology and Cell countsOrdered By: Vahid Nagy on 53-14-7040TuL4v (Bld) [Mass fraction]6.7 %Normal(<=7.0)[facility] Work Phone: Laboratory - Specimen informationOrdered By: Vahid Nagy on 89-39-7112Iblwp (U)NNormalCardinal Cushing Hospital Work Phone: No Panel InformationOrdered By: Vahid Nagy on 06-00-8687TCKENwyqcw(POS/NEG)[facility] Work Phone: [phone](POS/NEG)[facility] Work Phone: BUPNNormal(POS/NEG)[facility] Work Phone: [phone](POS/NEG)[facility] Work Phone: [phone](POS/NEG)[facility] Work Phone: [phone](POS/NEG)[facility] Work Phone: [phone](POS/NEG)[facility] Work Phone: [phone](POS/NEG)[facility] Work Phone: [phone](POS/NEG)[facility] Work Phone: [phone](POS/NEG)[facility] Work Phone: [phone](POS/NEG)[facility] Work Phone: [phone] to LabNONormal(Yes/No)[facility] Work Phone: [phone] Members Utfyftk0Kewlrb(1 or 2)[facility] Work Phone: [phone](POS/NEG)[facility] Work Phone: [phone] TempNNormal(90-100)[facility] Work Phone: Metabolic Panelon 83-26-9469Jhfictitwe A1c/Hemoglobin.total mass fraction (Bld)6.60 %Invalid Interpretation Code< 7 [facility] Glucose mass syax352.0 mg/dLInvalid Interpretation Code [facility] Hemoglobin A1c/Hemoglobin.total mass fraction (Bld)6.60 %< 7[facility] Glucose mass pbdd411.0 mg/dLCardinal Cushing Hospital aEROBIC CULTUREon 58-63-6038JJWBOHP CULTURESPECIMEN NUMBER: [id number] Laboratories IncComment on above:Result Comment: AEROBIC CULTURE [...] identification is necessary,please contact the Microbiology laboratory.[facility] [employer] [address] [place], [place] [address]Laboratory Director: Albin Snyder M.D.CLIA No. [id number] CAP Accreditation No. [id number] Panelon 96-16-5933Cvfksqg mass conc98.0 mg/dLInvalid Interpretation CodeCardinal [facility] Hospital Glucose mass conc98.0 mg/dLCardinal Cushing Hospital Metabolic Panelon 93-85-5943Jdjetxa mass hlwf460.0 mg/dLInvalid Interpretation CodeCard[facility] Glucose mass hito959.0 mg/dLCardinal Cushing Hospital Metabolic Panelon 64-22-8308Qremvjy mass ugtp071.0 mg/dLInvalid Interpretation CodeCard[facility] Glucose mass kxkw771.0 mg/dLCardinal Cushing Hospital Metabolic Panelon 49-96-1373Sbmcdrjikh A1c/Hemoglobin.total mass fraction (Bld)6.20 %Invalid Interpretation Code< 7 [facility] Glucose mass qbga574.0 mg/dLInvalid Interpretation Code [facility] Hemoglobin A1c/Hemoglobin.total mass fraction (Bld)6.20 %< 7[facility] Glucose mass gzze812.0 mg/dLCardinal Cushing Hospital otheron 71689=ZdqxlpahonUjfkwtf Interpretation CodeCardinal [facility] Hospital 0-N/AInvalid Interpretation [facility] 0Invalid Interpretation [facility] managing chronic illnessInvalid Interpretation [facility] Risk Level 2= 4-6Invalid Interpretation [facility] 5Invalid Interpretation [facility] 1336=GtBeqafyp Interpretation [facility] [id number]=WwyHfntrdg Interpretation [facility] 0=N/AInvalid Interpretation [facility] Risk Level 2= 4-6[facility] 5[facility] 0[facility] 048131=DzArmtew [facility] managing chronic illnessHealth [facility] 169612=PawEbihgq [facility] 162452=UuixqlcwuiWpxzfp [facility] 0-N/A[facility] 0=N/A[facility] COMPREHENSIVE METABOLIC PANEL WITH GFRon 12-16-2016 Alanine aminotransferase (ALT)11 U/LNormal5-59Path[facility] Laboratories IncAlbumin 3.9 g/dLNormal3.2-5.3[facility] IncALK PHOS75 IU/MOhgbfi95-244 [facility] IncAnion gap20 mmol/LNormalPathology [facility] Inc AST-SGOT11 IU/OHlqvty76-02Fnwbkwmur Laboratories IncBilirubin (direct)0.4 mg/dL Normal0.2-1.3[facility] IncCalcium9.3 mg/dLNormal8.7-10.8[facility] ZlsZdwckvvi034 mmol/BFlgwdz54-311Rgpiijzmv Laboratories IcdZS596 mmol/FVzocjs35-51Yupvxniqy Laboratories IncCreatinine0.5 mg/dLNormal0.5-1.3 [facility] InceGFR (black)154 [...] conc4.7 mmol/LNormal3.5-5.4Path[facility] IncProtein6.7 g/dLNormal 5.8-8.0[facility] EhaTxulxe321 mmol/BPvuykj229-633Fgovcpisv Laboratories IncUrea zquojzhv40 mg/cQGvqcte19-28Bkxeueksx Laboratories IncLIPID PANEL (INCLUDES CALCULATED LDL)on 75-73-7446Gykemvsague499 mg/dLHigh<200 [facility] IncCholesterol to HDL Ratio6.2 {ratio}High<5Path[facility] IncHDL-CHOL38 mg/awUbw73-26Kazydwxxa Laboratories IncComment on above:Result Comment: HDL <40 mg/dL IS A RISK FACTOR FOR CORONARY HEART DISEASE. HDL >60 mg/dL IS ANEGATIVE RISK FACTOR FOR CORONARY HEART DISEASE.LDL to HDL Ratio3.7High<3.5Path[facility] Laboratories IncLDL-CHOL, ASPGJTXPYX355 mg/dLHigh<130 [facility] Laboratories IncComment on above:Result Comment: LDL CHOLESTEROL REFERENCE RANGE FOR 0-19 YEARS: DESIRABLE <110 mg/dL, PGJUUVBOWX585-877, HIGH RISK >130 LDL CHOLESTEROL REFERENCE RANGE FOR ADULTS: DESIRABLE <100 mg/dL, BORD DAILY 130-159, HIGH RISK >160REFERENCE RANGES REVISED 09/09/15 ACCORDING TO NCEP GUIDELINESLqztripseddo132 mg/dLHigh<150Path[facility] Laboratories IncVLDL- CHOL, WLFACHTAUG56 mg/dLHigh<30Path[facility] IncCBC W/AUTO DIFFon 12-15-2016% YGYWHYFJYWP47.3 %NormalPathology Laboratories IncABS BASOPHILS0.1 K/ulNormal0.0-0.1Pathology Laboratories IncABS NEUTROPHILS6.1 K/ulNormal1.3-9.1 [facility] IncBasophils/100 WBC Auto (Bld)0.8 %NormalPathology Laboratories IncComment on above:Result Comment: MANUAL DIFFERENTIAL PERFORMED Eosinophils0.5 10*3/uLHigh0.1-0.4Path[facility] Laboratories IncEosinophils/100 leukocytes5.2 %NormalPathology Laboratories IncErythrocyte distribution width Auto Ratio (RBC)16.9 %High10.8-14.8Path[facility] Laboratories IncErythrocytes (RBC) 5.29 10*6/uLNormal4.00-5.50[facility] IncHematocrit (HCT)47.1 % Dofmck91.0-48.0[facility] IncHemoglobin mass conc (Bld)15.2 g/dL Neweph46.0-16.0[facility] IncLymphocytes1.9 10*3/uLNormal0.8-5.2 [facility] IncLymphocytes/100 .6 %NormalPathology Laboratories SdwIUG24.7 cwJrmgcb96.0-34.0[facility] IncMCHC mass conc (RBC)32.3 g/bXGdyvph65.0-36.0[facility] IpzWUS79.0 fLNormal 80.-100.[facility] Laboratories IncMonocytes0.5 10*3/uLNormal0.1-0.9[facility] IncMonocytes/100 leukocytes5.7 %NormalPathology Laboratories Inc Oanyffjrh239 10*3/sHWipeuk957.-450.[facility] Laboratories IncWBC (Leukocytes)9.0 10*3/uLNormal3.7-10.8[facility] IncHEPATITIS C ABon 12-15-2016 HEPATITIS C ABNegativeNormalNEGATIVEPathology Laboratories IncComment on above: Result Comment: [facility] [address] [place], [place] [address]Laboratory Director: Dwight Menezes M.D.CLIA No. [id number] CAP Accreditation No. [id number] WITH T4 REFLEXon 38-30-2860Gjojtfb stimulating hormone (TSH)1.180 uIU/mLNormal0.40-4.40Pathology Laboratories IncCardiacon 83-62-3214Wywjquhxzdm088 mg/dLInvalid Interpretation Code<200[facility] HDL Ocdlrnkpqcw08.0 mg/tA51-86DkboiqCardinal Cushing Hospital 7842Buoqjnubuuxj043.0 mg/dL<150[facility] Hematologyon 71-80-3217Ihhblcycv #/vol (Bld)0.8 %[facility] Basophils Auto #/vol (Bld)0.8 %Invalid Interpretation CodeCardinal Cushing Hospital Basophils/100 WBC (Bld)0.1 K/uL0.0-0.1[facility] Basophils/100 WBC Auto (Bld)0.1 K/uLInvalid Interpretation Code0.0-0.1[facility] Eosinophils/100 leukocytes5.2 %Invalid Interpretation CodeCardinal Cushing Hospital Eosinophils/100 WBC (Bld)5.2 %[facility] Erythrocyte distribution width Auto Ratio (RBC)16.9 % Invalid Interpretation Code10.8-14.8[facility] Erythrocytes (RBC)5.290 10*6/uLInvalid Interpretation Code4.00-5.50[facility] Hematocrit (HCT)47.10 %Invalid Interpretation Code 36.0-48.0[facility] Hematocrit Volume Fraction (Bld)47.10 %36.0-48.0[facility] Hemoglobin A1c/Hemoglobin.total mass fraction (Bld)0.5 10*3/uL0.1-0.4[facility] Hemoglobin A1c/Hemoglobin.total mass fraction (Bld)1.9 10*3/uL0.8-5.2[facility] Hemoglobin A1c/Hemoglobin.total mass fraction (Bld)0.5 10*3/uL0.1-0.9[facility] Hemoglobin A1c/Hemoglobin.total mass fraction (Bld)6.1 10*3/uL1.3-9.1[facility] Hemoglobin S .2Invalid Interpretation Code 12.0-16.0[facility] Lipoprotein a mass conc0.5 10*3/uLInvalid Interpretation Code0.1-0.4[facility] Lipoprotein a mass conc1.9 10*3/uLInvalid Interpretation Code0.8-5.2[facility] Lipoprotein a mass conc0.5 10*3/uLInvalid Interpretation Code0.1-0.9[facility] Lipoprotein a mass conc6.1 10*3/uLInvalid Interpretation Code1.3-9.1[facility] Lymphocytes/100 dzrllkumya74.6 %Invalid Interpretation [facility] Lymphocytes/100 WBC (Bld)20.6 %[facility] MCH28.7 pgInvalid Interpretation Code27.0-34.0[facility] MCH Entitic mass (RBC)28.7 pg27.0-34.0[facility] MCHC mass conc (RBC)32.3 g/dLInvalid Interpretation Code31.0-36.0[facility] MCV89.0 fLInvalid Interpretation Code80.-100.[facility] MCV Entitic volume (RBC)89.0 fL80.-100.[facility] Monocytes/100 leukocytes5.7 %Invalid Interpretation CodeCardinal Cushing Hospital [employer] Monocytes/100 WBC (Bld)5.7 %[facility] Neutrophils/100 pnyjujhqex15.3 %Invalid Interpretation CodeCardinal Cushing Hospital Neutrophils/100 WBC (Bld)67.3 %[facility] RBC #/vol (Bld)5.290 10*6/uL4.00-5.50[facility] WBC (Leukocytes)9.0 10*3/uLInvalid Interpretation Code 3.7-10.8[facility] Imm/Pathon 72-55-5038Nnbkmplrs C antibody presence NegativeNEGATIVECardinal Cushing Hospital Metabolic Panelon 57-74-5392Frfvawstik A1c/Hemoglobin.total mass fraction (Bld)6.70 %Invalid Interpretation Code< 7 [facility] [employer] Glucose mass mazf568.0 mg/dLInvalid Interpretation Code [facility] Hemoglobin A1c/Hemoglobin.total mass fraction (Bld)6.70 %< 7[facility] Alanine aminotransferase (ALT)11.0 U/L5-59[facility] Albumin3.90 g/dL3.2-5.3[facility] Alkaline phosphatase (ALP)75.0 U/B70-946Yahtas [facility] Anion gap20 mmol/LInvalid Interpretation [facility] Anion gap molar conc20 mmol/L[facility] Aspartate aminotransferase (AST)11.0 U/K29-55Lxsaxg [facility] Calcium9.30 mg/dL8.7-10.8[facility] 8896Irohonkt974 mmol/T24-458Ulxybz [facility] CO222 mmol/LInvalid Interpretation Wazf96-64Xvdlej [facility] 1120Impqrgdicl5.50 mg/dL0.5-1.3[facility] eGFR (non-black)127 mL/min/{1.73_m2}Invalid Interpretation Code>60[facility] eGFR (non-black)154 mL/min/{1.73_m2}Invalid Interpretation Code>60[facility] Glucose mass conc99 mg/rV75-410Vaqqtu [facility] Potassium molar conc4.70 mmol/L3.5-5.4[facility] Protein6.7 g/dL5.8-8.0[facility] Sodium142 mmol/G145-049Epdgci [facility] Urea lhagoqwe82.0 mg/pI66-71Fommyv [facility] Glucose mass gdmn815.0 mg/dLHealth [facility] Otheron 66-22-9914KJNTubkvmh Interpretation [facility] WNLHealth [facility] Work Phone: [phone]=VrEuhdwns Interpretation [facility] Risk Level 3=7-9Invalid Interpretation [facility] Work Phone: [phone]=LijVhrujsw Interpretation [facility] 0Invalid Interpretation [facility] 321187=MzwGgszrfr Interpretation [facility] 0-N/AInvalid Interpretation [facility] 8Invalid Interpretation [facility] 0=N/AInvalid Interpretation [facility] 137271=VaibponykbZcjitcx Interpretation [facility] Bilirubin Ql (U)0.40.2-1.3[facility] Cholesterol crystals Infrared spectroscopy Ql (Stone) 236 mg/dL<200[facility] Cholesterol to HDL Ratio6.2 {ratio}<5[facility] Erythrocyte distribution width Ratio (RBC)16.9 % 10.8-14.8[facility] Hemoglobin S Ql (Bld)15.212.0-16.0[facility] LDL to HDL Ratio3.7Invalid Interpretation Code<3.5 [facility] Lipoprotein.beta/Lipoprotein.alpha mass ratio3.7<3.5 [facility] MCHC mass conc (RBC)32.3 g/dL31.0-36.0[facility] 640-8325FutA-YE SerPl-kJhy479.0 mg/dL<130[facility] 826-2093EmiS-KF SerPl-mCnc58.0 mg/dL<30[facility] WBC LM Ql (Sput)9.03.7-10.8[facility] 524150.-450.[facility] 6.7Invalid Interpretation Code5.8-8.0[facility] 5586-5576168>60[facility] 127>60[facility] 8639-40Dfbsgl [facility] Work Phone: [phone] [facility] [facility] Work Phone: [phone]=IebbnitlxcXduxqi [facility] 2=NcEtsxvv [facility] 6=PtqXfysel [facility] 9-X/AHealth [facility] Work Phone: [phone]=XkaYzhziy [facility] Work Phone: [phone]=A/[facility] Risk Level 3=7-9Health [facility] 8Health [facility] Thyroidon 56-62-7910Giuembp stimulating hormone (TSH) 1.180 uIU/mL0.40-4.40[facility] Cardiacon 36-95-0905Tdyiadsldro046 mg/dLInvalid Interpretation Code<200[facility] HDL Kqydmmjktqv02.0 mg/hC29-43Niudds [facility] 6344Wmcwxfpytudq049.0 mg/dL<150[facility] Hematologyon 98-09-2535Tgbhdaftj #/vol (Bld)1.1 %0.-1. [facility] Basophils Auto #/vol (Bld)1.1 %Invalid Interpretation Code0.-1.[facility] Basophils/100 WBC (Bld)0.1 K/uL0.0-0.1[facility] Basophils/100 WBC Auto (Bld)0.1 K/uLInvalid Interpretation Code0.0-0.1[facility] Eosinophils/100 leukocytes3.7 %Invalid Interpretation Code1.-4.[facility] Eosinophils/100 WBC (Bld)3.7 %1.-4.[facility] Erythrocyte distribution width Auto Ratio (RBC)15.3 % Invalid Interpretation Code10.8-14.8[facility] [employer] Erythrocytes (RBC)5.050 10*6/uLInvalid Interpretation Code4.00-5.50[facility] Hematocrit (HCT)47.70 %Invalid Interpretation Code 36.0-48.0[facility] Hematocrit Volume Fraction (Bld)47.70 %36.0-48.0[facility] Hemoglobin A1c/Hemoglobin.total mass fraction (Bld)0.4 10*3/uL0.1-0.4[facility] Hemoglobin A1c/Hemoglobin.total mass fraction (Bld)2.4 10*3/uL0.8-5.2[facility] Hemoglobin A1c/Hemoglobin.total mass fraction (Bld)0.4 10*3/uL0.1-0.9[facility] Hemoglobin A1c/Hemoglobin.total mass fraction (Bld)6.6 10*3/uL1.3-9.1[facility] Hemoglobin S xjzryiup67.1Invalid Interpretation Code 12.0-16.0[facility] Lipoprotein a mass conc0.4 10*3/uLInvalid Interpretation Code0.1-0.4[facility] Lipoprotein a mass conc2.4 10*3/uLInvalid Interpretation Code0.8-5.2[facility] Lipoprotein a mass conc0.4 10*3/uLInvalid Interpretation Code0.1-0.9[facility] Lipoprotein a mass conc6.6 10*3/uLInvalid Interpretation Code1.3-9.1[facility] Lymphocytes/100 bcghppsjon66.4 %Invalid Interpretation Iejm92-41Qfvqof [facility] Lymphocytes/100 WBC (Bld)24.4 %16-48[facility] MCH29.9 pgInvalid Interpretation Code27.0-34.0[facility] MCH Entitic mass (RBC)29.9 pg27.0-34.0[facility] MCHC mass conc (RBC)31.7 g/dLInvalid Interpretation Code31.0-36.0[facility] MCV94.4 fLInvalid Interpretation Code80.-100.[facility] MCV Entitic volume (RBC)94.4 fL80.-100.[facility] Monocytes/100 leukocytes3.8 %Invalid Interpretation Code1.-8.[facility] Monocytes/100 WBC (Bld)3.8 %1.-8.[facility] Neutrophils/100 slxucbzdpw58.0 %Invalid Interpretation Etyj38-60Gxtudm [facility] Neutrophils/100 WBC (Bld)67.0 %45-75[facility] RBC #/vol (Bld)5.050 10*6/uL4.00-5.50[facility] WBC (Leukocytes)9.9 10*3/uLInvalid Interpretation Code 3.7-10.8[facility] Metabolic Panelon 10-88-7050Opmfavs aminotransferase (ALT)17.0 U/L5-59[facility] Albumin4.30 g/dL3.2-5.3[facility] Alkaline phosphatase (ALP)92.0 U/C16-956Qzcqii [facility] Anion gap11 mmol/LInvalid Interpretation CodeHealth [facility] Anion gap molar conc11 mmol/L[facility] Aspartate aminotransferase (AST)16.0 U/N23-16Ezrior [facility] Calcium9.50 mg/dL8.7-10.8[facility] 0613Cdwelfhh674 mmol/O53-660Osyouw [facility] CO227 mmol/LInvalid Interpretation Hyva53-89Rlsnwd [facility] 3089Hveptrbsmn0.50 mg/dL0.5-1.3[facility] eGFR (non-black)155 mL/min/{1.73_m2}Invalid Interpretation Code>60[facility] eGFR (non-black)128 mL/min/{1.73_m2}Invalid Interpretation Code>60[facility] Glucose mass conc94 mg/lV97-959Kzctxi [facility] Potassium molar conc4.70 mmol/L3.5-5.4[facility] Protein7.0 g/dL5.8-8.0[facility] Sodium136 mmol/W150-404Ianiot [facility] Urea byuosutc58.0 mg/cZ73-39Gpzqjq [facility] Glucose mass conc78.0 mg/dLHealth [facility] Glucose mass conc78.0 mg/dLInvalid Interpretation Code [facility] Otheron 83-24-8357Mzneaylhn Ql (U)0.30.2-1.3[facility] Cholesterol crystals Infrared spectroscopy Ql (Stone) 224 mg/dL<200[facility] Cholesterol to HDL Ratio6.1 {ratio}<5[facility] Erythrocyte distribution width Ratio (RBC)15.3 % 10.8-14.8[facility] Hemoglobin S Ql (Bld)15.112.0-16.0[facility] LDL to HDL Ratio3.6Invalid Interpretation Code<3.5 [facility] Lipoprotein.beta/Lipoprotein.alpha mass ratio3.6<3.5 [facility] MCHC mass conc (RBC)31.7 g/dL31.0-36.0[facility] p346-5984HmbN-LR SerPl-aTez152.0 mg/dL<130[facility] 543-7767HsoY-HS SerPl-mCnc53.0 mg/dL<30[facility] WBC LM Ql (Sput)9.93.7-10.8[facility] 203150.-450.[facility] 7.0Invalid Interpretation Code5.8-8.0[facility] 128>60[facility] 155>60[facility] 2592-59013466-26Khjyxm [facility] Thyroidon 73-43-4788Xcnyvjc stimulating hormone (TSH) 0.1650 uIU/mL0.40-4.40[facility] Thyroxine (T4) gdga3735.0 ng/dL4.5-12.5[facility] Hematologyon 89-99-9794tOJFJSD except trace of blood, small leukocytesInvalid Interpretation CodeHealth [facility] [employer] Metabolic Panelon 93-67-2208Jrdzdvziwl A1c/Hemoglobin.total mass fraction (Bld)9.30 %< 7[facility] Glucose mass lqwp509.0 mg/dLHealth [employer] [facility] Hemoglobin A1c/Hemoglobin.total mass fraction (Bld)9.30 %Invalid Interpretation Code< 7[facility] Glucose mass vimh255.0 mg/dLInvalid Interpretation Code [facility] otheron 40-30-025321Godcoc [facility] WNLHealth [facility] 50Invalid Interpretation Code[facility] Urinalysis specialist review Interp Emmett (Unsp spec)WNL except trace of blood, small leukocytesHealth [facility] albumin mass conc (U)50.0 mg/dLHealth [facility] NegativeHealth [facility] WNLInvalid Interpretation Code[facility] Urinalysis specialist review Interp Emmett (Unsp spec)WNL except trace of blood, small leukocytesInvalid Interpretation Code[facility] albumin Ur-mCnc50.0 mg/dLInvalid Interpretation Code [facility] NegativeInvalid Interpretation CodeHealth [facility] Vital Signs Date TimeVital SignValuePerforming DoiacaxpkMvktfqxx96-50-4348 15:06-0400Body ewdfkczkrdq68.11 [degF]Nat Reynolds MD Work Phone: [facility] Ydocgm86-95-9712 15:06-0400Diastolic blood hsuqvicb54 mm[Hg]Nat [facility] Qpiekk77-12-0174 15:06-0400Heart rate 77 /minNat Reynolds MD Work Phone: [facility] Sgmpcv11-39-8727 15:06-0400 Respiratory rate20 /minNat Reynolds MD Work Phone: [facility] Flqidd25-72-2257 15:06-9213FbT3% (BldA) [Mass fraction]96 %Nat Reynolds MD Work Phone: [facility]10-03-2025 15:06-0400Systolic blood mm[Hg]Nat Reynolds MD Work Phone: [facility]10-01-2025 20:53-0400Body otkodd982.9 cmNat Reynolds MD Work Phone: [facility]10-01-2025 20:53-0400Body mass index (BMI) [Ratio]21.97 kg/a2DalusidNat Reynolds MD Work Phone: [facility]10-01-2025 20:53-0400Body brpoyx62.75 kgNat Reynolds MD Work Phone: [facility]08-21-2025 17:00-0400Diastolic blood vnbifglg88 mm[Hg]Osmar Rodriguez MD Work Phone: [facility]08-21-2025 17:00-0400Systolic blood qrllzxyd007 mm[Hg]Osmar Rodriguez MD Work Phone: [facility]08-21-2025 16:45-0400Heart rate73 /Emma Rodriguez MD Work Phone: [facility]08-21-2025 16:45-0940KhT1% (BldA) [Mass fraction]90 %Osmar Rodriguez MD Work Phone: [facility]08-21-2025 14:15-0400 Respiratory rate18 /Emma Rodriguez MD Work Phone: [facility]08-21-2025 12:11-0400Body cjchrpeluiq94.5 [degF]Osmar Rodriguez MD Work Phone: [facility]05-19-2025 10:29-0400 Respiratory rate15 /Emma Rodriguez MD Work Phone: [facility]05-19-2025 07:27-2175CqO8% (BldA) [Mass fraction]95 %Osmar Rodriguez MD Work Phone: [facility]05-19-2025 06:47-0400Body ujsbhgkalfs01 [degF]Osmar Rodriguez MD Work Phone: [facility]05-19-2025 06:47-0400Diastolic blood mm[Hg]Osmar Rodriguez MD Work Phone: [facility]05-19-2025 06:47-0400Heart rate73 /Emma Rodriguez MD Work Phone: [facility]05-19-2025 06:47-0400Systolic blood rpycmfdg185 mm[Hg]Osmar Rodriguez MD Work Phone: [facility]05-19-2025 01:26-0400Body mass index (BMI) [Ratio]23.47 kg/r3OpbeuuOsmar Rodriguez MD Work Phone: [facility]05-19-2025 01:26-0400Body ibbejl01.34 kgOsmar Rodriguez MD Work Phone: [facility]05-15-2025 07:22-0400Body gercue917.9 Nora Rodriguez MD Work Phone: [facility]05-12-2025 18:30-0400Body dfqwtnlwjho72.5 [degF]Osmar Rodriguez MD Work Phone: [facility]05-12-2025 18:30-0400Diastolic blood bflvaezk04 mm[Hg]Osmar Rodriguez MD Work Phone: [facility]05-12-2025 18:30-0400Heart rate78 /Emma Rodriguez MD Work Phone: [facility]05-12-2025 18:30-0400 Respiratory rate18 /Emma Rodriguez MD Work Phone: [facility]05-12-2025 18:30-0973SqS5% (BldA) [Mass fraction]95 %Osmar Rodriguez MD Work Phone: [facility]05-12-2025 18:30-0400Systolic blood rqvvlodt830 mm[Hg]Osmar Rodriguez MD Work Phone: [facility]05-12-2025 05:44-0400Body mass index (BMI) [Ratio]24.67 kg/i4ZjgwmxOsmar Rodriguez MD Work Phone: [facility]05-12-2025 05:44-0400Body axzvey00.19 kgOsmar Rodriguez MD Work Phone: [facility]05-09-2025 06:44-0400Body peuatt204.9 cmSmaria elena Rodriguez MD Work Phone: [facility]10-24-2024 16:00-0400Inhaled oxygen flow rate2 L/KarenO Carlo Grimaldo Work Phone: [facility]10-24-2024 16:00-0400 SaO2% (BldA) [Mass fraction]95 %DO Carlo Grimaldo Work Phone: [facility]10-24-2024 13:59-0400 Diastolic blood ztqntvgy19 mm[Hg]DO Carlo Grimaldo Work Phone: [facility]10-24-2024 13:59-0400 Heart rate70 /minDO Carlo Grimaldo Work Phone: [facility]10-24-2024 13:59-0400 Respiratory rate18 /minDO Carlo Grimaldo Work Phone: [facility]10-24-2024 13:59-0400 Systolic blood bzwtuadn241 mm[Hg]DO Carlo Grimaldo Work Phone: [facility]10-24-2024 07:58-0400 Body kuywhzjfddx03.8 [degF]DO Carlo Grimaldo Work Phone: [facility]10-24-2024 05:30-0400 Body cfuprc21 kgDO Carlo Grimaldo Work Phone: [phone]10-23-2024 15:20-0400 Body umudoi231.18 cmDO Carlo Grimaldo Work Phone: [phone]10-20-2024 21:30-0400 Diastolic blood tpmntlex47 mm[Hg]DO Carlo Grimaldo Work Phone: [phone]10-20-2024 21:30-0400 Heart rate67 /minDO Carlo Grimaldo Work Phone: [phone]10-20-2024 21:30-0400 Inhaled oxygen flow rate4 L/minDO Carlo Grimaldo Work Phone: 1(186)944-[address] [place], [place] 5157610-20-2024 21:30-0400 Respiratory rate20 /minDO Carlo Grimaldo Work Phone: [phone]10-20-2024 21:30-0400 SaO2% (BldA) [Mass fraction]94 %DO Carlo Grimaldo Work Phone: [facility]10-20-2024 21:30-0400 Systolic blood jkbcfehh959 mm[Hg]DO Carlo Grimaldo Work Phone: [facility]10-20-2024 16:43-0400 Body .94 cmDO Carlo Grimaldo Work Phone: [facility]10-20-2024 16:43-0400 Body rfkhuo14.4 kgDO Carlo Grimaldo Work Phone: [facility]10-20-2024 16:41-0400 Body czimsoknqia56.2 [degF]DO Carlo Grimaldo Work Phone: [facility]04-30-2023 12:10-0400 Body chlkuw487.9 Nora Rodriguez MD Work Phone: [facility]04-30-2023 12:10-0400Body mass index (BMI) [Ratio]30.23 kg/y8QljutwOsmar Rodriguez MD Work Phone: [facility]04-30-2023 12:10-0400Body zkxelktmdxi53.9 [degF]Osmar Rodriguez MD Work Phone: [facility]04-30-2023 12:10-0400Body wuajpy12.58 kgOsmar Rodriguez MD Work Phone: [facility]04-30-2023 12:10-0400Diastolic blood mm[Hg]Osmar Rodriguez MD Work Phone: [facility]04-30-2023 12:10-0400Heart rate60 /Emma Rodriguez MD Work Phone: [facility]04-30-2023 12:10-0400 Respiratory rate20 /Emma Rodriguez MD Work Phone: [facility]04-30-2023 12:10-4568IqV7% (BldA) [Mass fraction]91 %Osmar Rodriguez MD Work Phone: [facility]04-30-2023 12:10-0400Systolic blood wootddno194 mm[Hg]Osmar Rodriguez MD Work Phone: [facility]04-22-2023 10:16-0400Body gwgtfpadodc43.9 [degF]Osmar Rodriguez MD Work Phone: [facility]04-22-2023 10:16-0400Diastolic blood lhzznanp69 mm[Hg]Osmar Rodriguez MD Work Phone: [facility]04-22-2023 10:16-0400Heart rate79 /Emma Rodriguez MD Work Phone: [facility]04-22-2023 10:16-0400 Respiratory rate20 /Emma Rodriguez MD Work Phone: [facility]04-22-2023 10:16-3314RhE4% (BldA) [Mass fraction]91 %Osmar Rodriguez MD Work Phone: [facility]04-22-2023 10:16-0400Systolic blood dasbufgl687 mm[Hg]Osmar Rodriguez MD Work Phone: [facility]01-27-2023 13:55-0500Body egxcrx076.9 cmCorrine Chery [employer]PER[employer]OR[employer]STUDENT COUNSELLOR Work Phone: [phone])[address] [place], [place] 6935801-27-2023 13:55-0500Body mass index (BMI) [Ratio]25.51 kg/t1YiskxpvrCorrine De La Cruzor [employer]PERVISOR-STUDENT COUNSELLOR Work Phone: [phone])[address] [place], [place] 6935801-27-2023 13:55-0500Body juwzhs21.24 kgCorrine De La Cruzor [employer] M SUPERVISOR-STUDENT COUNSELLOR Work Phone: [phone])[address] [place], [place] 6935801-27-2023 13:55-0500 Diastolic blood dsyctywv98 mm[Hg]Corrine De La Cruzmeeta [employer] M SUPERVISOR-STUDENT COUNSELLOR Work Phone: [phone])[address] [place], [place] 6935801-27-2023 13:55-0500Heart rate70 /minCorrine Chery [employer] M SUPERVISOR-STUDENT COUNSELLOR Work Phone: [phone])[address] [place], [place] 6935801-27-2023 13:55-0500Systolic blood ehjnvigl670 mm[Hg]Corrine De La Cruzmeeta [employer] M SUPERVISOR-STUDENT COUNSELLOR Work Phone: [phone])[address] [place], [place] 6935804-20-2022 15:30-0400 Diastolic blood bdlipvmj05 mm[Hg]Pedrito Pickett MD Work Phone: [facility]04-20-2022 15:30-0400Heart rate69 /Derick Pickett MD Work Phone: [facility]04-20-2022 15:30-0400 Respiratory rate24 /minSmicah Pickett MD Work Phone: [phone] [place], [place] 6546604-20-2022 15:30-3631ObH4% (BldA) [Mass fraction]93 %Pedrito Pickett MD Work Phone: [phone])[address] [place], [place] 6546604-20-2022 15:30-0400Systolic blood lwpzvfqe391 mm[Hg]Pedrito Pickett MD Work Phone: 1(224)[address] [place], [place] 6546604-20-2022 12:46-0400Body mhspet785.9 cmSmicah Pickett MD Work Phone: [phone])[address] [place], [place] 6546604-20-2022 12:46-0400Body mass index (BMI) [Ratio]22.67 kg/i6VkjmbpPedrito Pickett MD Work Phone: [phone])[address] [place], [place] 6546604-20-2022 12:46-0400Body xozeszdqnfq77.2 [degF]Pedrito Pickett MD Work Phone: [phone] [place], [place] 6546604-20-2022 12:46-0400Body htnxos24.43 kgPedrito Pickett MD Work Phone: [phone])[address] [place], [place] 6546612-19-2021 13:47-2126FxM6% (BldA) [Mass fraction]94 %Osmar Rodriguez MD [facility]5183 12:02-0500Diastolic blood mm[Hg]Osmar Rodriguez MD Work Phone: [facility] CenterPckdsa35-64-1216 12:02-0500Systolic blood oroibmjm260 mm[Hg]Osmar Rodrigeuz MD Work Phone: [facility] CenterTchvpc00-15-3102 09:16-0500Heart rate70 /min Osmar Rodriguez MD Work Phone: [facility] CenterHdhgzc53-71-3267 08:33-0500Body mass index (BMI) [Ratio]30.55 kg/b1Dlprjsdiego Rodriguez MD Work Phone: [facility] Bsvvmc89-05-1059 08:33-0500Body rgylxe36.35 kg Osmar Rodriguez MD Work Phone: [facility] CenterYcbgdt20-32-7557 06:01-0500Respiratory rate18 /minSmaria elena Rodriguez MD Work Phone: [facility] Ctotdf45-08-0076 13:56-0500Body gcpkspysyjp46.1 [degF]Osmar Rodriguez MD Work Phone: [facility] Txmsdw95-97-9982 11:51-0500Diastolic blood mm[Hg][facility] Caawbq93-64-6225 11:51-0500Heart rate56 /minV[facility] Program[facility] 02-09-2021 11:51-0500Respiratory rate18 /minV[facility] Oxeulc38-61-8706 11:51-0500 SaO2% (BldA) [Mass fraction]96 %[facility] Bwggmq42-88-1752 11:51-0500Systolic blood ctjlahaw416 mm[Hg][facility] Modibi86-89-1163 11:09-0500Body .9 cmV[facility] Administration Jpgxjp14-76-2994 11:09-0500Body mass index (BMI) [Ratio]30.23 kg/k4Eldtp Programeter 02-09-2021 11:09-0500Body obzzujcwcwy78.1 [degF][facility] Ipbryn89-20-4429 11:09-0500Body xiwqpv36.58 kgV[facility] Agfzfi51-98-6782 15:19-0400Diastolic blood zehopcoj31 mm[Hg]Albert Andes DO Work Phone: [facility] Work Phone: 1([phone] 973-551610-14-2021 15:19-0400Systolic blood mm[Hg] Albert Andes DO Work Phone: [facility] Work Phone: 1(924) 698-919210-14-2021 15:15-1175TqJ3% (BldA) [Mass fraction]96 % Albert Andes DO Work Phone: [employer] Work Phone: 1(195) 896-922710-14-2021 12:02-0400Body whejfv124.9 cmJustin Andes DO Work Phone: [facility] Work Phone: 1(174) 279-329810-14-2021 12:02-0400Body mass index (BMI) [Ratio] 30.23 kg/f5Hbupvc Andes DO Work Phone: [facility] Work Phone: [phone]876 12:02-0400Body iwlwurvdkzl20.7 [degF]Albert Andes DO Work Phone: [facility] Work Phone: [phone] 12:02-0400Body nzhizd56.58 kgJustin Andes DO Work Phone: [facility] Work Phone: 1(188) 820-995810-14-2021 12:02-0400Heart rate70 /minJustin Andes DO Work Phone: [employer] Work Phone: 1(417) 442-687410-14-2021 12:02-0400Respiratory rate18 /minJustin Andes DO Work Phone: [facility] [employer] Work Phone: 1(210) 675-682809-05-2021 19:00-0400Diastolic blood cxcogujq88 mm[Hg] Mukeshpaige Marley MD Work Phone: [facility] [employer] Work Phone: 1(627) 360-308909-05-2021 19:00-0400Systolic blood nbgewpzs806 mm[Hg] Mukeshpaige Marley MD Work Phone: [facility] [employer] Work Phone: 1(442) 519-882609-05-2021 17:30-5307MyI4% (BldA) [Mass fraction]99 % Mukeshpaige Marley MD Work Phone: [facility] Work Phone: 1(115) 842-745509-05-2021 15:50-0400Body mass index (BMI) [Ratio] 34.01 kg/m2Mukesh Marley MD Work Phone: [facility] [employer] Work Phone: 1(129) 666-383109-05-2021 15:50-0400Body mzeanmkmeqp06.6 [degF]Mukesh Marley MD Work Phone: [facility] [employer] Work Phone: 1(866) 994-681409-05-2021 15:50-0400Body .65 kgMukesh Marley MD Work Phone: [facility] [employer] Work Phone: 1(507) 940-901809-05-2021 15:50-0400Heart rate77 /Jimmie Marley MD Work Phone: [facility] [employer] Work Phone: 1(743) 424-641209-05-2021 15:50-0400Respiratory rate16 /Jimmie Marley MD Work Phone: [facility] [employer] Work Phone: 1(979) 856-139201-12-2021 09:55-0500BMI (Body Mass Index)33.7 kg/m2 [facility] Work Phone: 1(212) 107-724301-12-2021 09:55-0500Body Ppadtgerqii39.7 [degF][facility] Work Phone: 1(966) 453-514801-12-2021 09:55-0500Body bmooks58.61 kgAijuanito [facility] Work Phone: 1(501) 907-500301-12-2021 09:55-0500BP Ftmyfxqzl38 mm[Hg][facility] Work Phone: 1(908) 981-121301-12-2021 09:55-0500BP Dyivqyve982 mm[Hg][facility] Work Phone: 1(693) 392-704001-12-2021 09:55-0500BSA (Body Surface Area)1.78 m2 [facility] Work Phone: 1(506) 180-185101-12-2021 09:55-5952Aruhus912.67 cmAimee [facility] Work Phone: 1(129) 287-913201-12-2021 09:55-0500Pulse (Heart Rate)70 /minAijuanito [facility] Work Phone: 1(770) 467-760301-12-2021 09:55-0500Pulse Dswtayzq36 %[facility] Work Phone: 1(414) 427-980501-12-2021 09:55-0500Respiratory Rate18 /[facility] Work Phone: 1(996) 678-667001-05-2021 14:02-0500BMI (Body Mass Index)30.23 kg/m2 [facility], YH47-45-8955 14:02-0500Body Hfotdcweykb36.9 [degF][facility], YB01-41-6552 14:02-0500Body wdoskh19.58 kgH[facility], FL69-78-0538 14:02-0500BP Fkncpjlsl63 mm[Hg] [facility], HV59-60-1246 14:02-0500BP Gjzwlaoy852 mm[Hg] [facility], PJ47-42-9055 14:02-0500Pulse (Heart Rate)63 /[facility], FN25-11-7891 14:02-0500Pulse Ehnthati00 % [facility], KE49-00-7804 14:02-0500Respiratory Rate18 /min [facility], WX57-35-0196 14:39-0500BP Hggpyfirx39 mm[Hg] [facility], UC37-52-9733 14:39-0500BP Qpxxwdda850 mm[Hg][facility], OQ28-34-4844 14:39-0500Pulse (Heart Rate)65 /minPro[facility], SU66-16-2228 14:39-0500Pulse Aayghmuw96 %[facility], PD34-76-8941 14:39-0500Respiratory Rate16 /min[facility], VN49-57-2744 13:59-0500BMI (Body Mass Index)30.23 kg/p6RrplvProMedica [facility]ostoria [facility], IA38-96-3139 13:59-0500Body Ogcymhoyuio49.01 [degF][facility], GK08-17-1860 13:59-0500Body qummqa97.58 kg[facility], RB65-37-6218 07:30-0500Body Ptpkgcsrauc49.7 [degF][facility], [id number] 07:30-0500BP Cxywkqdol26 mm[Hg][facility], [id number] 07:30-0500BP Rwkchosb608 mm[Hg][facility], [id number] 07:30-0500Pulse (Heart Rate)63 /min [facility], [id number] 07:30-0500Pulse Wkpxtbxa678 % [facility], [id number] 07:30-0500Respiratory Rate16 /min[facility], [id number] 18:02-0500BMI (Body Mass Index)31.78 kg/l6HvsoggpclczhVeterans [facility], [id number] 18:02-0500Body .3 kg[facility], [id number] 18:02-0500Height 154.9 cmV[facility], [id number] 10:52-0500BP Diastolic 91 mm[Hg][facility], [id number] 10:52-0500BP Biwqvdjp123 mm[Hg] [facility], [id number] 10:52-0500Pulse (Heart Rate)59 [facility], EN68-19-7857 08:49-0500Body Agtaldntstg07.8 [degF][facility], YS36-48-5777 08:49-0500Pulse Zrzssjnv64 %[facility], RC05-04-9536 08:49-0500Respiratory Rate16 /[facility], RF61-85-9986 08:07-6138Grbzft592.9 [facility] 03-18-2020 03:57-0500BMI (Body Mass Index)33.32 kg/m2[facility], JV00-52-3249 03:57-0500Body lhguet28 kg[facility], MP71-05-2138 18:45-0500BP Ensojgkyh42 mm[Hg][address], CA02-65-3391 18:45-0500BP Ewzixolh682 mm[Hg][address], WR55-46-6669 18:45-0500Pulse (Heart Rate)62 /min[address], PO08-92-7345 18:45-0500Pulse Lxcthtwt11 %[address], NM69-92-0726 18:45-0500Respiratory Rate14 /min[address], QE98-23-0518 16:28-0500BMI (Body Mass Index)32.12 kg/m[address], AL71-71-2169 16:28-0500Body Kuexfoqmvlc96.81 [degF][address], SB20-13-7926 16:28-0500Body .[address], [place] 03-17-2020 16:28-4233Qcbfhv607.[address], SU64-02-7775 13:36-0500Pulse (Heart Rate)67 /[facility], UU39-50-2437 13:36-0500Pulse Accfdtnn55 %Mukeshpaige MartinezUC [facility] Center, JB25-35-1101 13:36-0500Respiratory Rate20 /Robertan JuanUC Medical Center, GH49-72-2061 12:15-0500BP Ogrndcmfd04 mm[Hg]Mukesh JuanUC [facility], GA81-74-5262 12:15-0500BP Sfmcpmzy862 mm[Hg][facility]esh [facility], HB12-02-5257 11:27-0500BMI (Body Mass Index)34.01 kg/m2Etan [facility], [place] 03-13-2020 11:27-0500Body Almrwdcmtqv04.91 [degF]Mukesh ChandlerC[facility], AT55-88-4944 11:27-0500Body pldfsu28.65 kgEtan JuanUC [facility] Center, [place] 02-12-2020 14:02-0500BMI (Body Mass Index)34.01 kg/z3Tvxwwlj [facility], EW24-95-5337 14:02-0500Body Obdnlugaxrs03.4 [degF]Deion [facility], IU59-58-6950 14:02-0500Body rzkryi77.[address] [facility] [place] 02-12-2020 14:02-0500BP Nehsjuhok12 mm[Hg][facility]ion [facility], [place] 02-12-2020 14:02-0500BP Qysexjif486 mm[Hg][facility]ion [facility], [place] 02-12-2020 14:02-0500Pulse (Heart Rate)67 /minVa [facility] [place] 02-12-2020 14:02-0500Pulse Vwnpykip51 %[facility]ion [facility], [place] 02-12-2020 14:02-0500Respiratory Rate14 /minVa [facility] [place] 01-28-2020 09:30-0400BMI (Body Mass Index)33.9 kg/r5Szohq [facility] Work Phone: 1(288) 194-768810-29-2020 09:30-0400Body Igiueiqxqiz11 [degF][facility] Work Phone: 1(971) [phone] 09:30-0400Body rrwuyu65.02 [facility]AiGood [facility] Work Phone: 1(289) 363-193210-29-2020 09:30-0400BP Rpvewxeoj07 mm[Hg][facility] Work Phone: 1(244) 528-621110-29-2020 09:30-0400BP Tisruwlj809 mm[Hg][facility] Work Phone: 1(721) 392-516810-29-2020 09:30-0400BSA (Body Surface Area)1.78 m2 [facility] Work Phone: 1(988) 677-227110-29-2020 09:30-8071Iasiso588.67 cmAimee [facility] Work Phone: 1(602) 433-994410-29-2020 09:30-0400Pulse (Heart Rate)68 /[facility] Work Phone: 1(686) 215-568110-29-2020 09:30-0400Pulse Fpvwiuks08 %[facility] Work Phone: 1(777) 405-351610-29-2020 09:30-0400Respiratory Rate20 /[facility] Work Phone: 1(831) 254-161808-17-2020 08:49-0400BMI (Body Mass Index)34.4 kg/m2 [facility] Work Phone: 1(131) 143-395608-17-2020 08:49-0400Body Suuaqulqeff73.9 [degF][facility] Work Phone: 1(390) 140-762108-17-2020 08:49-0400Body mofruv38.56 kgAiGood [facility] Work Phone: 1(486) 480-779308-17-2020 08:49-0400BP Icqxcqqqw67 mm[Hg][facility] Work Phone: 1(362) 587-560708-17-2020 08:49-0400BP Rhoartgj32 mm[Hg][facility] Work Phone: 1(280) 894-468908-17-2020 08:49-0400BSA (Body Surface Area)1.81 m2 [facility] Work Phone: 1(200)[phone] 08:49-8071Mmdgvm570.94 cmATrinity [facility] System Work Phone: 1(208)[phone] 08:49-0400Pulse (Heart Rate)65 /[facility] Work Phone: 1(527)[phone] 08:49-0400Pulse Acoilrnd28 %[facility] Work Phone: 1(332)[phone] 08:49-0400Respiratory Rate18 /[facility] Work Phone: 1(932) 302-576007-22-2020 14:02-0400BP Zwmkzpyvk62 mm[Hg][facility], JB07-19-9435 14:02-0400BP Xvtiqvoo430 mm[Hg][facility], RC86-85-7267 14:02-0400Pulse (Heart Rate)66 /[facility], II01-50-8777 14:02-0400Respiratory Rate20 /[facility], NZ96-74-2459 13:40-0400Pulse Wnylayxx342 %[facility], TJ40-35-7699 13:34-0400BMI (Body Mass Index)34.01 kg/m2[facility], EW74-28-5562 13:34-0400Body Oqepimsettu00.59 [degF][facility], RC76-27-1116 13:34-0400Body mxrzuv19.65 kgMukesh [facility], IN43-94-3530 13:34-0456Ffgcwg992.9 cmElaura [facility], 10-21-2019 08:16-0400BMI (Body Mass Index)35 kg/a2QqzhsHighland District Hospital Work Phone: 1(294) 08:16-0400Body Oevzkwdnhng26.1 [degF][facility] Work Phone: 1(885) 08:16-0400Body .01 kgAiGood [facility] Work Phone: 1(035) 08:16-0400BP Wlhjlhxnj94 mm[Hg][facility] Work Phone: 1(780) 08:16-0400BP Xyjzzhxm411 mm[Hg][facility] Work Phone: 1(261) 08:16-0400BSA (Body Surface Area)1.83 m2 [facility] Work Phone: 1(023) 08:16-2885Xcvfvp647.94 cmATrinity Health System Work Phone: 1([phone] 08:16-0400Pulse (Heart Rate)72 /[facility] Work Phone: 1(385) 08:16-0400Pulse Qzivnlkx29 %[facility] Work Phone: 1(648) 08:16-0400Respiratory Rate20 /[facility] Work Phone: 1(833) 02:32-0400BP Kezaifvps76 mm[Hg][facility], NL78-32-5664 02:32-0400BP Gwxjjoju504 mm[Hg][facility], DO74-98-3070 02:32-0400Pulse (Heart Rate)96 /minSyed [facility], VU22-53-3848 02:32-0400Pulse Ygewdrsa25 %[facility], GQ00-94-7486 23:38-0400Respiratory Rate16 /minSyed [facility], FD86-13-6124 22:52-0400Body Vfjaafwzkmu65.7 [degF]Ewsly [facility], MC83-96-1331 11:11-0400Respiratory rateNOT REPORTEDCapital Medical Center, AJ15-29-3610 10:57-0400Pulse Rtgquhtz90 %Nia [facility], WM23-27-9205 09:21-0400Body Rzousstzjrq137.2 [degF]Nia [facility], FM00-07-0880 09:21-0400BP Matkpvxcu35 mm[Hg]Nia [facility], MT57-54-6632 09:21-0400BP Nuihcejz360 mm[Hg] Nia [facility], QV83-42-5696 09:21-9218Muxjmj050.6 cm Nia [facility], GJ25-65-4907 09:21-0400Pulse (Heart Rate)85 /[facility], TZ63-18-0620 09:21-0400Respiratory Rate22 /[facility], MD13-38-0342 13:14-0400Body bmgace757.94 cmAkamiki Angelita [facility] Work Phone: [facility] Work Phone: 1(893) 148-357606-25-2020 13:14-0400Body mass index (BMI) [Ratio]35.4 kg/z4Givly Angelita STUDENT COUNSELLOR Work Phone: [facility] Work Phone: 1(283) [phone] 13:14-0400Body surface area Derived from formula1.84 h0BykqrVahid Nagy CNP Work Phone: [phone] Work Phone: [phone] 13:14-0400Body boqgbrtiuuv22.9 [degF]Vahid Nagy CNP Work Phone: [phone] Work Phone: [phone] 13:14-0400Body sqfhru96.1 kgAijuanito Nagy CNP Work Phone: [phone] Work Phone: [phone] 13:14-0400Diastolic blood kmouapfu37 mm[Hg] Vahid Nagy CNP Work Phone: [phone] Work Phone: [phone] 13:14-0400Heart rate74 /Kip Nagy CNP Work Phone: [facility] Work Phone: [phone] 13:14-0400Pulse Doybxgcc91 %Vahidchristiano Nagy [facility] Work Phone: [phone] 13:14-0400Respiratory rate18 /Kip Nagy CNP Work Phone: [phone] Work Phone: [phone] 13:14-9621EoF9% (BldA) [Mass fraction]98 % Vahid Nagy [facility] Work Phone: [phone] Work Phone: [phone] 13:14-0400Systolic blood ebsomsse598 mm[Hg] Vahid Nagy STUDENT COUNSELLOR Work Phone: [phone] Work Phone: [phone] 10:15-0400Pulse (Heart Rate)78 /Ryan InvisticsMISS[facility], EU46-10-5986 08:00-0400Body Pzhkxxdufye53.5 [degF]Chago InvisticsMISSOU[facility], EY37-67-8612 08:00-0400BP Azxqyptim77 mm[Hg]Chago Marr [facility], CJ80-26-3688 08:00-0400BP Dtznwogh354 mm[Hg][facility]ago [facility], UR92-21-8630 08:00-0400Pulse Oybkqslq21 %[facility], PX24-15-5811 19:33-0400Respiratory Rate17 /minChago CherryHigh[facility], 07-23-2019 06:00-0400BMI (Body Mass Index)35.9 kg/p7GhyxtChago CherryHighland District Hospital, QV41-70-4395 06:00-0400Body gsxxky43.18 kgChago [facility], 07-18-2019 02:02-1861Mxpdvm878.9 cmChago CherryHighland District Hospital, QL45-49-5114 23:47-0400BP Tnhborolu62 mm[Hg]Luis [facility], PB02-16-8796 23:47-0400BP Ymmbpval289 mm[Hg]Luis [facility], KU30-13-8359 23:47-0400Pulse (Heart Rate)72 /Harish [facility], DA26-95-9955 23:47-0400Respiratory Rate16 /Harish [facility], XV52-84-1250 19:25-0400Pulse Twslinmj67 %Luis [facility], RU47-00-6880 18:28-0400 Respiratory rateNOT REPORTEDTri[facility], CH14-81-6454 17:32-0400 BMI (Body Mass Index)34.01 kg/e9Huops [facility], UF26-70-0126 17:32-0400Body Adjmeghlnml11.9 [degF]Luis [facility], FM05-32-9747 17:32-0400Body pynior20.65 kgTerryRiverside Methodist Hospital, UH25-04-0374 14:47-0400BMI (Body Mass Index)35.7 kg/e9KuzybVahid BrewerH[facility] Work Phone: [phone]([phone] 14:47-0400Body Lzkspmlaolm13.5 [degF][facility] Work Phone: 1(438) 14:47-0400Body ctzuty32.73 kgAiGood [facility]itan [facility] Work Phone: 1(268) 14:47-0400BP Zimqznxpr60 mm[Hg][facility] Work Phone: 1(826) 14:47-0400BP Fvcyyiwj844 mm[Hg][facility] Work Phone: 1(275) 14:47-0400BSA (Body Surface Area)1.84 m2 [facility] Work Phone: 1(771) 14:47-3136Fkzuhu242.94 cmATrinity Health System Work Phone: 1(237) 14:47-0400Pulse (Heart Rate)63 /[facility] Work Phone: 1(020) 14:47-0400Pulse Lbtarlpe77 %[facility] Work Phone: [phone]) 14:47-0400Respiratory Rate18 /[facility] Work Phone: 1(985) 14:47-0945SqB9% (BldA) [Mass fraction]96 % [facility] Work Phone: [phone] Work Phone: 1(477) 16:48-0400BP Iuidnasjs90 mm[Hg][facility], BQ35-80-1327 16:48-0400BP Pzgvqvmi931 mm[Hg][facility], NX53-98-3443 16:48-0400Pulse (Heart Rate)56 /[facility], OM34-26-9608 16:48-0400Respiratory Rate17 /minEtan [facility], GD32-20-3968 14:53-0400BMI (Body Mass Index)34.01 kg/m2Mukesh Marley [facility], NS41-49-5598 14:53-0400Body Hrvuyfiifkx65.4 [degF]Mukesh [facility]Hol[facility], SA51-81-1794 14:53-0400Body txfynn13.65 [facility], IN54-74-2013 14:53-0400Pulse Zghfyshb06 %Mukesh [facility], IK98-62-6469 09:21-0500BMI (Body Mass Index)37.6 kg/x4Zzkei [facility], UY00-13-8676 09:21-0500Body Sfeircqmtrl43.9 [degF][facility], CJ14-03-7114 09:21-0500Body yuciah80.27 kgLuis [facility], HU83-32-0744 09:21-0500BP Vhpjaccrg74 mm[Hg][facility], [place] 05-27-2019 09:21-0500BP Wxfoxdyt644 mm[Hg][facility], [place] 05-27-2019 09:21-0500Pulse (Heart Rate)83 /[facility], [place] 05-27-2019 09:21-0500Pulse Imxuiuyn10 %[facility], MD59-99-8579 09:21-0500Respiratory Rate16 /minTriHealth [facility], ZT18-00-7396 15:11-0500BMI (Body Mass Index)37.4 kg/t6Nnaqm [facility] Work Phone: 1(075) 15:11-0500Body Gvswmyzljok70.4 [degF]Vahid [facility] Work Phone: [phone] 15:11-0500Body pdjtbe44.81 kgAijuanito [facility] Work Phone: 1(419) 15:11-0500BP Epilifyhh93 mm[Hg][facility] Work Phone: 1(894) 15:11-0500BP Ghbuzhrs544 mm[Hg][facility] Work Phone: 1([phone]) 15:11-0500BSA (Body Surface Area)1.88 m2 [facility] Work Phone: 1(057) 15:11-3841Xajnak972.94 cmAimeNorthwest Medical Center [facility] Work Phone: 1(048) 15:11-0500Pulse (Heart Rate)71 /minHigh[facility] Hospital Work Phone: 1(241) 15:11-0500Pulse Bsndwazk05 %[facility] Work Phone: 1(713) 15:11-0500Respiratory Rate18 /[facility] Work Phone: 1(269) 15:11-2906BuJ6% (BldA) [Mass fraction]90 % [facility] Work Phone: [phone] Work Phone: 1([phone] 08:00-0500Body mpqvlrjotyv30.7 [degF]Albert Andes DO Work Phone: [facility] Work Phone: 1(483) 102-850101-26-2020 08:00-0500Diastolic blood ugrkuhgx10 mm[Hg] Albert Andes DO Work Phone: [facility] Work Phone: 1(466) 493-232801-26-2020 08:00-0500Heart rate73 /minJustin Andes DO Work Phone: [facility] Work Phone: 1(718) 194-988301-26-2020 08:00-0500Respiratory rate18 /minJustin Andes DO Work Phone: [facility] Work Phone: 1(339) 136-719401-26-2020 08:00-9444KmG6% (BldA) [Mass fraction]93 % Albert Andes DO Work Phone: [facility] Work Phone: 1(735) 468-562901-26-2020 08:00-0500Systolic blood aoaukstx072 mm[Hg] Albert Andes DO Work Phone: [facility] Work Phone: 1(529) [phone] 05:00-0500Body mass index (BMI) [Ratio] 36.81 kg/m9Vsvxlg Andes DO Work Phone: [facility] Work Phone: 1(318) 235-323901-26-2020 05:00-0500Body qqefhh94.36 kgJustin Andes DO Work Phone: [facility] Work Phone: 1(789) 211-902301-21-2020 22:00-0500Body .9 cmJustin Andes DO Work Phone: [facility] Work Phone: 1(923) 519-413501-14-2020 13:56-0500BMI (Body Mass Index)36.4 kg/m2 [facility] Work Phone: 1(428) 13:56-0500Body Xjyceqhtnla74.5 [degF][facility] Work Phone: 1(713) 13:56-0500Body lepuky59.36 kgAiGood Samaritan Hospital Work Phone: 1(775) 13:56-0500BP Ahaxrozmk68 mm[Hg][facility] Work Phone: 1(310) 13:56-0500BP Cydetqgh067 mm[Hg][facility] Work Phone: 1(745)039-178810-21 13:56-0500BSA (Body Surface Area)1.86 m2 Vahid [facility] Work Phone: 1(806)[phone] 13:56-2473Fwvyqt055.94 cmAimeki [facility] Work Phone: 1([phone] 13:56-0500Pulse (Heart Rate)61 /minAigae [facility] Work Phone: [phone] 13:56-0500Pulse Uvcjbkrf66 %[facility] Work Phone: 1(080)[phone] 13:56-0500Respiratory Rate18 /[facility] Work Phone: [phone] 13:56-3370XzK4% (BldA) [Mass fraction]90 % [facility] Work Phone: [facility] Work Phone: [phone] 14:21-0500Diastolic blood mlvkmkoj56 mm[Hg] Harish Betancourtrov [employer] Work Phone: [facility] Work Phone: 1([phone] 182-502501-12-2020 14:21-3286GkV1% (BldA) [Mass fraction]95 % Harish Betancourtrov DO Work Phone: [facility] Work Phone: 1(935) 729-715601-12-2020 14:21-0500Systolic blood yjvoujbg548 mm[Hg] Harish Betancourtrov DO Work Phone: [facility] Work Phone: 1(355) 714-657301-12-2020 13:02-0500Heart rate60 /minAlexander Bobrov DO Work Phone: [facility] Work Phone: 1(295) [phone] 12:58-0500Respiratory rate20 /minAlexander Serafinrov DO Work Phone: [facility] Work Phone: 1(961) 833-998701-12-2020 10:19-0500Body bsqumo002.9 cmAjonas Sebastian DO Work Phone: [facility] Work Phone: 1(816) [phone] 10:19-0500Body mass index (BMI) [Ratio]35.9 kg/f4Zmypzmvhifortunato Sebastian DO Work Phone: [facility] Work Phone: 1(304) 352-547401-12-2020 10:19-0500Body jowmjejxknm50.8 [degF] Harish Sebastian DO Work Phone: [facility] Work Phone: 1(567) 229-735901-12-2020 10:19-0500Body ukduhp58.18 kgAlefortunato Sebastian DO Work Phone: [facility] Work Phone: 1(708) 207-437112-20-2019 08:34-0500BP Svxvxspxk94 mm[Hg][facility] Work Phone: [phone]([phone] 08:34-0500BP Ewmvuzfb745 mm[Hg][facility] Work Phone: 1([phone])[phone] 08:12-0500BMI (Body Mass Index)36 kg/m2 [facility] Work Phone: [phone]([phone] 08:12-0500Body Gqjjbetizag45.5 [degF][facility] Work Phone: [phone] 08:12-0500Body zihdoz00.46 kgAigaki [facility] Work Phone: 1(732)[phone]4-7175 08:12-0500BP Aiqosdnfs85 mm[Hg][facility] Work Phone: 6(356)[phone] 08:12-0500BP Laycpvkc896 mm[Hg][facility] Work Phone: 1(752)[phone]1-4750 08:12-0500BSA (Body Surface Area)1.85 m2 [facility] Work Phone: 1(869)[phone]8-5268 08:128882Xojeoe968.94 cmATrinity Health System Work Phone: 7([phone])[phone] 08:12-0500Pulse (Heart Rate)73 /[facility] Work Phone: 0(823)[phone] 08:12-0500Pulse Lfzpiumg33 %[facility] Work Phone: 9(234)[phone] 08:12-0500Respiratory Rate18 /[facility] Work Phone: 0(900)765-602493538-40-2992 08:12-9211GbR9% (BldA) [Mass fraction]85 % [facility] Work Phone: [facility] Work Phone: 6([phone])911-685470051-97-6809 14:31-0500BMI (Body Mass Index)35.5 kg/m2 [facility] Work Phone: [phone](044)[phone] 14:31-0500Body Viungxvhwwg67.9 [degF][facility] Work Phone: 8(679)[phone] 14:31-0500Body zogdzq02.28 kgC[facility] Work Phone: 0(163)[phone] 14:31-0500BP Vvwuvejrw37 mm[Hg][facility] Work Phone: 9(256)186-140342025-41-2586 14:31-0500BP Gvyewagh766 mm[Hg][facility] Work Phone: 3(204)[phone] 14:31-0500BSA (Body Surface Area)1.84 m2 [facility] Work Phone: 0(848)462-535346188-23-4370 14:31-9555Vyrboe510.94 cmAimee [facility] Work Phone: 1(917) [phone] 14:31-0500Pulse (Heart Rate)61 /[facility] Work Phone: 1(592) [phone] 14:31-0500Pulse Zoqtujgs28 %[facility] Work Phone: 1(629) [phone] 14:31-0500Respiratory Rate14 /[facility] Work Phone: 1(798) 313-398612-03-2019 14:31-6004LoR3% (BldA) [Mass fraction]88 % [facility] Work Phone: [facility] Work Phone: 1(170) 350-977411-25-2019 20:22-0500BP Xuxlhnlxn18 mm[Hg][facility], YD60-93-2438 20:22-0500BP Qvohgxyg274 mm[Hg][facility], YQ77-94-8798 20:22-0500Respiratory Rate16 /[facility]Community [facility], RH22-51-0948 16:25-0500Pulse Xehlibsk02 %[facility], AC35-91-0295 16:23-0500Body Xsoqspdibyl16.71 [degF][facility] MX63-30-8655 16:23-0500Pulse (Heart Rate)68 /minCommunity [facility], PC45-97-0903 09:12-0500BMI (Body Mass Index)35.6 kg/m2 [facility] Work Phone: [phone](296)[phone] 09:12-0500Body Moffpzxzdgb47.7 [degF][facility] Work Phone: 1(723) [phone] 09:12-0500Body gavwru79.55 kgAiGood Samaritan Hospital Work Phone: 1(419)[phone] 09:12-0500BP Wsezoksrb43 mm[Hg][facility] Work Phone: [phone](442)[phone] 09:12-0500BP Dtbdvohn926 mm[Hg][facility] Work Phone: [phone](644)[phone] 09:12-0500BSA (Body Surface Area)1.84 m2 [facility] Work Phone: [phone](550)[phone] 09:12-4459Opuxzy029.94 cmAimeNorthwest Medical Center [facility] Work Phone: [phone]([phone] 09:12-0500Pulse (Heart Rate)67 /[facility] Work Phone: 8(774)[phone] 09:12-0500Pulse Bhnjhkgl26 %[facility] Work Phone: [phone](061)[phone] 09:12-0500Respiratory Kbbw789.6 /[facility] Work Phone: [phone](999)[phone] 09:12-1684YrD8% (BldA) [Mass fraction]90 % [facility] Work Phone: [facility] Work Phone: 0(389)[phone] 09:50-0400BMI (Body Mass Index)34.8 kg/m2 [facility] Work Phone: [phone] 09:50-0400Body Sfyznqnzdpw98.4 [degF][facility] Work Phone: 8(947)[phone] 09:50-0400Body sbkuns24.55 kgAiGood [facility]aritan Hospital Work Phone: 4(442)[phone] 09:50-0400BP Omimnhjnx72 mm[Hg][facility] Work Phone: 1(841)911-442787-440462-61514694-17-3694 09:50-0400BP Nismxhcp195 mm[Hg][facility] Work Phone: 1(745)[phone] 09:50-0400BSA (Body Surface Area)1.82 m2 [facility] Work Phone: 4(606)484-389160345-41-3273 09:50-9805Kimajk455.94 [facility] Work Phone: 1(315)[phone] 09:50-0400Pulse (Heart Rate)64 /[facility] Work Phone: 2(850)737-355208588-16-9377 09:50-0400Pulse Okoawogx31 %[facility] Work Phone: 6(799)074-964160268-24-6216 09:50-0400Respiratory Rate18 /[facility] Work Phone: 7(789)188-423619428-40-5995 09:50-9208RsL8% (BldA) [Mass fraction]98 % [facility] Work Phone: [facility] Work Phone: 0(828)923-988903378-33-7136 16:41-0400BMI (Body Mass Index)34.9 kg/m2 [facility] Work Phone: 9(233)405-828220180-29-0313 16:41-0400Body Ihygobqeklb48.6 [degF][facility] Work Phone: 5(128)[phone] 16:41-0400Body xvrxse98.78 [facility] Work Phone: 8(032)605-222193880-01-9109 16:41-0400BP Zftkxncxt15 mm[Hg][facility] Work Phone: 1(318)974-215162121-08-2018 16:41-0400BP Xqsplidb774 mm[Hg][facility] Work Phone: 6(823)570-703712373-00-1174 16:41-0400BSA (Body Surface Area)1.83 m2 [facility] Work Phone: 1(752) 543-447610-24-2019 16:41-3013Hugkqe600.94 [facility] Work Phone: 6(996)437-575230125-77-2071 16:41-0400Pulse (Heart Rate)63 /[facility] Work Phone: 0(967)753-656506625-13-8583 16:41-0400Pulse Cqrdjrio88 %[facility] Work Phone: 1(393) 427-834210-24-2019 16:41-0400Respiratory Rate18 /[facility] Work Phone: 8(320)837-974961761-48-7265 16:41-1131NcG8% (BldA) [Mass fraction]93 % [facility] Work Phone: [facility] Work Phone: 8(422)[phone] 12:41-0400BMI (Body Mass Index)32.12 kg/m2 [facility], [id number] 12:41-0400Body Kaziqzqxvhf11.8 [degF] [facility] [id number] 12:41-0400Body unfqwe57.11 [facility] TJ04-58-5076 12:41-0400BP Xsezfditr29 mm[Hg][facility], CY75-83-0579 12:41-0400BP Nuxtkiep233 mm[Hg][facility], [id number] 12:41-1100Eyftvx427.9 [facility] [id number] 12:41-0400Pulse (Heart Rate)75 /[place], [place] 01-13-2019 12:41-0400Pulse Dspuueky00 %[place] 01-13-2019 12:41-0400Respiratory Rate18 /[facility], [place] 01-12-2019 14:15-0400BMI (Body Mass Index)35.1 kg/o2[facility]yx[facility] Work Phone: 1(208) 951-502110-14-2019 14:15-0400Body Jjbjxqzuehl85.6 [degF][facility] Work Phone: 1(962) 213-887310-14-2019 14:15-0400Body fccxlo03.19 kgAiGood [facility] Work Phone: 1(928) 627-526810-14-2019 14:15-0400BP Nifvatbvn82 mm[Hg][facility] Work Phone: 1(100) 308-558710-14-2019 14:15-0400BP Ctgulbbh908 mm[Hg][facility] Work Phone: 1(571) 803-761610-14-2019 14:15-0400BSA (Body Surface Area)1.83 m2 [facility] Work Phone: 1(787) 599-968010-14-2019 14:15-4292Weinjm735.94 cmATrinity [facility] System Work Phone: 1(646) 144-851310-14-2019 14:15-0400Pulse (Heart Rate)64 /[facility] Work Phone: 1(744) 996-411510-14-2019 14:15-0400Pulse Drkwkdqc42 %[facility] Work Phone: 1(159) 649-597410-14-2019 14:15-0400Respiratory Rate14 /[facility] Work Phone: 1(608) 108-752410-14-2019 14:15-5541ZmO9% (BldA) [Mass fraction]91 % [facility] Work Phone: [facility] Work Phone: 1(371) 427-872209-12-2019 17:39-0400BMI (Body Mass Index)32.9 kg/m2 [facility] Work Phone: [phone](122)[phone] 17:39-0400Body enojaf64.06 [facility] Work Phone: 1(759)[phone] 17:39-0400BP Hggoubifq95 mm[Hg][facility] Work Phone: [phone](448)[phone] 17:39-0400BP Ldsdpmje852 mm[Hg][facility] Work Phone: 1([phone])[phone] 17:39-0400BSA (Body Surface Area)1.78 m2 [facility] Work Phone: 1(199)[phone] 17:39-5002Lquvdz681.94 cmATrinity [facility] System Work Phone: 1(627)[phone] 17:39-0400Pulse (Heart Rate)85 /[facility] Work Phone: [phone](242)[phone] 17:39-0400Pulse Whxpihmb34 %[facility] Work Phone: 1(470)[phone] 17:39-0400Respiratory Rate18 /[facility] Work Phone: 0(074)[phone] 17:39-0190GqM3% (BldA) [Mass fraction]82 % [facility] Work Phone: [facility] Work Phone: 1([phone])[phone] 18:09-0400BMI (Body Mass Index)34 kg/m2 [facility] Work Phone: [phone](684)[phone] 18:09-0400Body Qfbovfodpne55.2 [degF][facility] Work Phone: [phone](134)[phone] 18:09-0400Body vagnuj35.56 kgAiGood [facility] Work Phone: 4(650)[phone] 18:09-0400BP Dakuqgvhz84 mm[Hg][facility] Work Phone: 1(397)[phone] 18:0BP Ohfhudly229 mm[Hg][facility] Work Phone: 8(172)875-366-442028-16 18:090BSA (Body Surface Area)1.81 m2 [facility] Work Phone: 1(379)[phone] 18:4038Offzkw587.94 cmATrinity Health System Work Phone: 1(873)805-894390-614893-85135011-13-5678 18:0Pulse (Heart Rate)67 /[facility] Work Phone: 1(919)[phone] 18:09-0Pulse Wnrozmab05 %[facility] Work Phone: 2(678)126-241258887-84-5809 18:090400Respiratory Rate14 /[facility] Work Phone: 6(800)110-335590869-04-3982 18:09-3255ZwS7% (BldA) [Mass fraction]92 % [facility] Work Phone: [facility] Work Phone: 5(550)[phone] 11:13-0400BMI (Body Mass Index)33.4 kg/m2 [facility] Work Phone: [phone](911)[phone] 11:13-0400Body Scifccyqzdh20.5 [degF][facility] Work Phone: 4(645)360-780282025-28-5003 11:13-0400Body tybzth01.2 [facility] Work Phone: 1(149)[phone] 11:13-0400BP Grwonuraz41 mm[Hg][facility] Work Phone: 4(149)301-288559975-98-0081 11:13-0400BP Lwjufthj768 mm[Hg][facility] Work Phone: 1(126)[phone] 11:BSA (Body Surface Area)1.79 m2 [facility] Work Phone: 9(881)[phone] 11:8687Rlwdjr574.94 cmATrinity Health System Work Phone: 1(530)[phone] 11:0Pulse (Heart Rate)69 /[facility] Work Phone: 9(092)[phone] 11:13-0Pulse Utfdhzuu90 %[facility] Work Phone: 2(353)[phone] 11:13-0Respiratory Rate18 /[facility] Work Phone: 8(919)[phone] 11:13-3651KoB3% (BldA) [Mass fraction]91 % [facility] Work Phone: [facility] Work Phone: 1(319)[phone] 17:28-0400BP Odbmlgudf19 mm[Hg][facility] Work Phone: 3(280)[phone] 17:28-0400BP Irbsgyij468 mm[Hg][facility] Work Phone: 5(018)[phone] 16:49-0400BP Sgjviwwrf11 mm[Hg][facility] Work Phone: 7(533)[phone] 16:49-0400BP Llseouxu774 mm[Hg][facility] Work Phone: 3(503)[phone] 16:34-0400BMI (Body Mass Index)33.9 kg/m2 [facility] Work Phone: 1(861)[phone] 16:34-0400Body Sqquleevjns54 [degF][facility] Work Phone: 6(489)[phone] 16:34-0400Body aiqrvc41.38 kgC[facility] Work Phone: 1(736)[phone] 16:34-0400BP Vpigqrkmo16 mm[Hg][facility] Work Phone: 1(066)[phone] 16:34-0400BP Oggquelr413 mm[Hg][facility] Work Phone: 1(253)[phone] 16:34-0400BSA (Body Surface Area)1.8 m2 [facility] Work Phone: 1(118)[phone] 16:34-2562Qxwraf223.94 cmAimeNorthwest [facility] Work Phone: 1(904)[phone] 16:34-0400Pulse (Heart Rate)65 /[facility] Work Phone: 1(463)[phone] 16:34-0400Pulse Aeevjqhm13 %[facility] Work Phone: 1(157)[phone] 16:34-0400Respiratory Rate18 /[facility] Work Phone: 1(037)[phone] 08:55-0400BMI (Body Mass Index)33.3 kg/m2 [facility] Work Phone: 1(785)[phone] 08:55-0400Body Yjjlyphmyrq47.2 [degF][facility] Work Phone: 1(612)[phone] 08:55-0400Body ivlfhc79.83 kgC[facility] Work Phone: 1(561)669-280273-44 08:55-0400BP Fgjzrdems49 mm[Hg][facility] Work Phone: 3(357)776-366371-76 08:55-0400BP Rtuvhrgg204 mm[Hg][facility] Work Phone: 3(153)[phone] 08:55-0400BSA (Body Surface Area)1.79 m2 Vahid [facility] Work Phone: 1(866)[phone] 08:55-7239Eukbpi693.94 Silviacarolinas continuecare [facility] Work Phone: 1([phone] 08:55-0400Pulse (Heart Rate)61 /[facility] Hospit[facility] Work Phone: 1(765)[phone] 08:55-0400Pulse Pxvqnikx85 %[facility] Work Phone: [phone]([phone] 08:55-0400Respiratory Rate20 /[facility] Work Phone: 1(894) 09:20-0400Body iaxbqa458.94 Mar Nagy [facility] Work Phone: [phone] Work Phone: 1([phone]) 09:20-0400Body mass index (BMI) [Ratio]34.3 kg/u3LecfnVahid Nagy STUDENT COUNSELLOR Work Phone: [phone] Work Phone: 1(855) 09:20-0400Body surface area Derived from formula1.81 z6FuwsxVahid Nagy CNP Work Phone: [phone] Work Phone: [phone] 09:20-0400Body adctastgsje77.8 [degF]Vahid Nagy STUDENT COUNSELLOR Work Phone: [phone] Work Phone: [phone]([phone] 09:20-0400Body kestwq05.37 kgAijuanito Nagy [facility] Work Phone: [phone] Work Phone: [phone]) 09:20-0400Diastolic blood gohfercd05 mm[Hg] Vahid Nagy CNP Work Phone: [phone] Work Phone: [phone] 09:20-0400Heart rate68 /Kip Nagy CNP Work Phone: [phone] Work Phone: [phone] 09:20-0400Pulse Jnqmjtqv35 %Vahid Nagy [facility] Work Phone: [phone]([phone] 09:20-0400Respiratory rate18 /Kip Nagy CNP Work Phone: [facility] Work Phone: 1([phone]) 09:20-4395YdI0% (BldA) [Mass fraction]98 % Vahid Nagy CNP Work Phone: [facility] Work Phone: [phone] 09:20-0400Systolic blood srrgqfso268 mm[Hg] Vahid Nagy CNP Work Phone: [facility] Work Phone: [phone]([phone] 09:27-0500Body cpgkka902.94 cmAjoelle Nagy CNP Work Phone: [phone] Work Phone: 1(679)[phone] 09:27-0500Body mass index (BMI) [Ratio]34.2 kg/d1DkeuaVahid Nagy CNP Work Phone: [phone] Work Phone: [phone] 09:27-0500Body surface area Derived from formula1.81 b8HrzduVahid Nagy CNP Work Phone: [facility] Work Phone: [phone] 09:27-0500Body owfsexcxghh49.6 [degF]Vahid Nagy CNP Work Phone: [phone] Work Phone: 1(297) 09:27-0500Body .19 kgAijuanito Nagy CNP Work Phone: [phone] Work Phone: 1(301)[phone] 09:27-0500Diastolic blood izzhrkds75 mm[Hg] Vahid Nagy CNP Work Phone: [phone] Work Phone: [phone] 09:27-0500Heart rate71 /Kip Nagy CNP Work Phone: [facility] Work Phone: [phone] 09:27-0500Pulse Xkzsrnsh31 %Vahid Nagy [facility] Work Phone: 1(410) 09:27-0500Respiratory rate18 /Kip Nagy CNP Work Phone: [phone] Work Phone: [phone] 09:27-2429HvD8% (BldA) [Mass fraction]92 % Vahid Nagy CNP Work Phone: [facility] Work Phone: [phone]([phone] 09:27-0500Systolic blood mm[Hg] Vahid Nagy CNP Work Phone: [phone] Work Phone: [phone] 09:11-0500Body gnfwyf050.94 cmAjoelle Nagy CNP Work Phone: [facility] Work Phone: 1([phone] 09:11-0500Body mass index (BMI) [Ratio]33.7 kg/n5OhbziVahid Nagy CNP Work Phone: [phone] Work Phone: 1([phone] 09:11-0500Body surface area Derived from formula1.8 h1NwefeVahid Nagy CNP Work Phone: [phone] Work Phone: 1(969) 09:11-0500Body bfwateqipwp95.3 [degF]Vahid Nagy CNP Work Phone: [phone] Work Phone: 1([phone] 09:11-0500Body mgiabn87.79 kgVahid Nagy CNP Work Phone: [phone]-[facility] Work Phone: [phone]([phone] 09:11-0500Diastolic blood cgvfolxy96 mm[Hg] Vahid Nagy CNP Work Phone: [phone] Work Phone: [phone]([phone] 09:11-0500Heart rate72 /Kip Nagy CNP Work Phone: [phone] Work Phone: [phone] 09:11-0500Pain Level7 1Aimeki Nagy CNP Work Phone: [phone]-[facility] Work Phone: [phone] 09:11-0500Pulse Luvbhkni93 %Vahid Nagy [facility] Work Phone: [phone]([phone] 09:11-0500Respiratory rate18 /Kip Nagy CNP Work Phone: [phone] Work Phone: 1(773)[phone] 09:11-9703OkV6% (BldA) [Mass fraction]92 % Vahid Nagy CNP Work Phone: [phone] Work Phone: 1([phone])[phone] 09:11-0500Systolic blood vjnyndqs744 mm[Hg] Vahid Nagy CNP Work Phone: [phone] Work Phone: 1(835)[phone]3-8918 15:13-0500BMI (Body Mass Index)34.81 kg/m2 [facility] 70-596162-38511778-57-8080 15:13-0500Body Vwvhyewtutw76.1 [degF][facility]Card[facility] 33-071495-92586235-60-1011 15:13-0500BP Qxvcmmmig81 mm[Hg]Ender [facility] 03-14 15:13-0500BP Tefpmpoj205 mm[Hg][facility] Work Phone: [phone] 15:13-0500BSA (Body Surface Area)1.9 m2 [facility] Work Phone: [phone] 15:13-1278Mhundv351.94 cmScottsburgaddy [facility] Work Phone: [phone] 15:13-0500Pulse (Heart Rate)70 /[facility] 90-202324-24545656-35-0938 15:13-0500Pulse Fwxdznaj63 %[facility] 21-49 15:13-0500Respiratory Rate20 /[facility] 54-675129-06536315-05-0392 15:13-3141Lrsptt87.58 kgEd [facility] Work Phone: [phone] 13:13-0500Body thpmav482.94 cmAjoelle Nagy CNP Work Phone: [phone] Work Phone: 3([phone] 13:13-0500Body mass index (BMI) [Ratio]34.8 kg/s6GafsnVahid Nagy CNP Work Phone: [phone] Work Phone: [phone] 13:13-0500Body surface area Derived from formula1.82 c8JjbocVahid Nagy CNP Work Phone: [phone] Work Phone: 1(216)[phone]4-5571 13:13-0500Body .1 [degF]Vahid Nagy CNP Work Phone: [phone] Work Phone: 1(038)[phone]6-8342 13:13-0500Body bcbint69.46 kgVahid Nagy CNP Work Phone: [phone] Work Phone: 1([phone])[phone]6-3943 13:13-0500Body vccryl55.58 kgAijuanito Angelita [facility] Work Phone: [phone](778)[phone]2-2466 13:13-0500Diastolic blood srowdnvg97 mm[Hg] Vahid Nagy STUDENT COUNSELLOR Work Phone: [facility] Work Phone: [phone](460)[phone]4-9679 13:13-0500Heart rate70 /Kip Nagy CNP Work Phone: [facility] Work Phone: [phone]([phone] [phone] 13:13-0500Respiratory rate20 /Kip Nagy CNP Work Phone: [facility] Work Phone: [phone](061)[phone]7-3337 13:13-0500Systolic blood rkfrjchu328 mm[Hg] Vahid Nagy [facility] Work Phone: [facility] Work Phone: 1(892)[phone] 10:290500BMI (Body Mass Index)33.73 kg/m2 [facility] 40-904072-71209423-58-8556 10:29-0500Body Uzsduttxdno53.4 [degF][facility] 14-188310-34087703-23-9667 10:29-0500BP Sjetmelnn13 mm[Hg][facility] 85-250253-64191961-25-6161 10:29-0500BP Mqmsnmal266 mm[Hg][facility] 15-995239-71036703-17-0328 10:29-0500BSA (Body Surface Area)1.87 m2 [facility] 98-845559-98967069-96-7967 10:294707Twzmyk965.94 cmATrinity Health System 77-54 10:29-0500Pulse (Heart Rate)91 /Kip [facility] Work Phone: [phone] 10:29-0500Pulse Nwiypokg67 %Vahid Nagy [facility] Work Phone: [phone] 10:29-0500Respiratory Rate18 /lionelEcu Health Duplin Hospitalki [facility] Work Phone: [phone] 10:29-4949Jpjwmv28.97 kgBetinaSt. Mary's [facility] Work Phone: [phone] 08:29-0500BMI (Body Mass Index)33.7 kg/m2 Vahid [facility] Work Phone: [phone](061)[phone] 08:29-0500Body azgzwj274.94 cmAimeki Nagy CNP Work Phone: [facility] Work Phone: [phone] 08:29-0500Body mass index (BMI) [Ratio]33.6 kg/e2YchneVahid Ngay CNP Work Phone: [facility] Work Phone: [phone] 08:29-0500Body surface area Derived from formula1.8 f1IdaorVahid Nagy CNP Work Phone: [phone] Work Phone: [phone] 08:29-0500Body dpehcucqvlq81.4 [degF]Vahid Nagy CNP Work Phone: [facility] Work Phone: [phone] 08:29-0500Body optqmr65.74 kgVahid Nagy STUDENT COUNSELLOR Work Phone: [facility] Work Phone: [phone] 08:29-0500Body xoxcqh30.97 Evelina Nagy [facility] Work Phone: [phone] 08:29-0500Diastolic blood sihcbyff14 mm[Hg] Vahid Nagy CNP Work Phone: [facility] Work Phone: [phone])[phone] 08:29-0500Heart rate91 /Kip Nagy STUDENT COUNSELLOR Work Phone: [facility] Work Phone: [phone](296)[phone] 08:29-0500Respiratory rate18 /Kip Nagy STUDENT COUNSELLOR Work Phone: [facility] Work Phone: [phone]([phone] 08:29-0500Systolic blood pexgmobu051 mm[Hg] Vahid Ngay CNP Work Phone: [facility] Work Phone: 1(958)[phone]1-7822 16:22-0500BMI (Body Mass Index)33.14 kg/m2 [facility] 73-166355-77065485-70-1743 16:22-0500Body Njcnvauamrz10.5 [degF][facility] 18-536885-79075709-49-5319 16:22-0500BP Erfhgpgcc82 mm[Hg][facility] 07-600693-51007717-02-6265 16:22-0500BP Muomvomo089 mm[Hg][facility] 23-317783-60852918-30-9596 16:22-0500BSA (Body Surface Area)1.85 m2 [facility] 28-417851-01373592-48-2010 16:22-3265Fisffs877.94 cmAimee [facility] 99-052522-76588711-48-0828 16:22-0500Pulse (Heart Rate)75 /[facility] hospitalBetinagaki [facility] 11-12-2018 16:22-0500Pulse Igaxjbgg39 %Vahid Angelita [facility] 69-091114-69256402-59-0780 16:22-0500Respiratory Rate20 /minVahid [facility] 93-475220-74330361-41-8375 16:22-7991Bxkcrj02.55 kgHigh[facility] Hospital 06-016948-83119244-84-4934 14:22-0500Body dpzefw718.94 cmAjoelle Nagy STUDENT COUNSELLOR Work Phone: [facility] Work Phone: [phone]([phone] 14:22-0500Body mass index (BMI) [Ratio]33.1 kg/g0CjkboVahid Nagy [facility] Work Phone: [facility] Work Phone: 1(027)[phone] 14:22-0500Body surface area Derived from formula1.78 w9ZshdmVahid Nagy [facility] Work Phone: [facility] Work Phone: 1(297)[phone] 14:22-0500Body fpeaslumgac59.5 [degF]Vahid Nagy CNP Work Phone: [facility] Work Phone: [phone]1-2702 14:22-0500Body tiekgs94.38 Evelina Nagy CNP Work Phone: [facility] Work Phone: 1([phone] 14:22-0500Body upqgma15.55 alizeCleveland Clinic [facility] Hospital Work Phone: [phone] 14:22-0500BSA (Body Surface Area)1.79 m2 Vahid [facility] Work Phone: [phone]([phone] 14:22-0500Diastolic blood mm[Hg] Vahid Nagy CNP Work Phone: [facility] Work Phone: 1([phone] 328-173611-12-2018 14:22-0500Heart rate75 /Kip Nagy CNP Work Phone: [facility] Work Phone: 1([phone] 512-609111-12-2018 14:-0500Respiratory rate20 /Kip Nagy CNP Work Phone: [facility] Work Phone: 1(590) 255-736611-12-2018 14:-0500Systolic blood sttredrv256 mm[Hg] Vahid Nagy CNP Work Phone: [facility] Work Phone: 1([phone] 861-751510-22-2018 12:-0400BMI (Body Mass Index)33.44 kg/m2 [facility] 88-882660-48360746-58-3551 12:-0400Body Qegnvshfglo60.3 [degF][facility] 46-144116-44206925-40-7355 12:01-0400BP Unfhcitvj78 mm[Hg][facility] 81-126041-18637610-91-5403 12:-0400BP Htzclrws300 mm[Hg][facility] 13-361242-90958386-61-3417 12:-0400BSA (Body Surface Area)1.86 m2 [facility] 98-231556-21622688-18-4305 12:5135Hdtbrx397.94 cmAimee [facility] 41-743527-34080529-42-4261 12:-0400Pulse (Heart Rate)71 /[facility] hospitalBetinagaki [facility] 48-248198-37477150-81-5529 12:01-0400Pulse Cvkhshes42 %[facility] 97-062903-61099585-04-7967 12:9355Pmwizm75.29 kgAiSt. Mary's [facility] 10-22-2018 11:01-0400BMI (Body Mass Index)33.44 kg/m2W [facility] Work Phone: [phone] 11:0400Body Kqylblcjemc73.3 [degF]W [facility] Work Phone: [phone] 11:-0400BP Ngdeuzbcc16 mm[Hg]W [facility] 45-11 11:01-0400BP Tyedtilj579 mm[Hg]W [facility] 31-81 11:040BSA (Body Surface Area)1.86 m2W [facility] 44-47 11:-5354Norphn246.94 cmW [facility] 02-26 11:01-0400Pulse (Heart Rate)71 /minW [facility] 65-29 11:01-0400Pulse Ejpdnyui15 %W [facility] 78-44 11:4084Zfillk15.29 kgW [facility] 98-55 09:01-0400Body imbdug889.94 cmAkamiki Nagy STUDENT COUNSELLOR Work Phone: [phone] Work Phone: [phone] 09:01-0400Body mass index (BMI) [Ratio]33.4 kg/d1Tavkkjuanito Nagy CNP Work Phone: [phone] Work Phone: [phone] 09:01-0400Body surface area Derived from formula1.79 n4Zolsijuanito Nagy CNP Work Phone: [phone] Work Phone: [phone] 09:01-0400Body lwlisamlvcg25.3 [degF]Vahid Nagy CNP Work Phone: [facility] Work Phone: [phone] 09:01-0400Body xiqemk15.29 kgAijuanito Nagy CNP Work Phone: [facility] Work Phone: [phone] 09:01-0400Diastolic blood avxlcvqd41 mm[Hg] Vahid Nagy CNP Work Phone: [facility] Work Phone: 1(960)[phone] 09:01-0400Heart rate71 /minVahid Nagy CNP Work Phone: [facility] Work Phone: [phone] 09:01-0400Systolic blood expuyhfm587 mm[Hg] Vahid Nagy CNP Work Phone: [facility] Work Phone: [phone] 12:59-0400BMI (Body Mass Index)33.25 kg/m2 [facility] 87-88 12:59-0400Body Axwlghlmywj58.1 [degF][facility] Work Phone: [phone] 12:59-0400BP Tbkbdjonp35 mm[Hg][facility] Work Phone: [phone] 12:59-0400BP Avkysowm722 mm[Hg][facility] Work Phone: [phone] 12:59-0400BSA (Body Surface Area)1.85 m2 [facility] Work Phone: [phone] 12:59-7163Ummyex946.94 cmATrinity [facility] Work Phone: [phone] 12:59-0400Pulse (Heart Rate)62 /[facility]elHigh[facility] Work Phone: [phone] 12:59-0400Pulse Xgwoqawa07 %Vahidchristiano [facility]erB[facility] 66-29 12:59-0400Respiratory Rate20 /[facility] Work Phone: [phone] 12:59-2306Lutnbo22.83 kgHighland District Hospital Work Phone: [phone] 11:59-0400BMI (Body Mass Index)33.25 kg/m2 [facility] Work Phone: [phone] 11:59-0400Body Lpybueqbdus90.1 [degF][facility] Work Phone: [phone] 11:59-0400BP Euuetujkx82 mm[Hg][facility] Work Phone: [phone] 11:59-0400BP Wsmkwfty574 mm[Hg][facility] Work Phone: [phone] 11:59-0400BSA (Body Surface Area)1.85 m2 [facility] Work Phone: [phone] 11:59-6754Iyjvwq726.94 cmAcarolinas continuecare [facility] 44-63 11:59-0400Pulse (Heart Rate)62 /[facility] Work Phone: [phone] 11:59-0400Pulse Tdblvmrw42 %[facility] 11-47 11:59-0400Respiratory Rate20 /[facility] Work Phone: [phone] 11:59-8570Eyirrj73.83 kgHighland District Hospital Work Phone: [phone] 09:59-0400Body .94 cmAjoelle Nagy CNP Work Phone: [facility] Work Phone: [phone] 09:59-0400Body mass index (BMI) [Ratio]33.3 kg/d7LndioVahid Nagy CNP Work Phone: [phone] Work Phone: [phone] 09:59-0400Body surface area Derived from formula1.79 k5Onllrjuanito Nagy CNP Work Phone: [phone] Work Phone: [phone] 09:59-0400Body ndzdggnvypn20.1 [degF]Vahid Nagy CNP Work Phone: [facility] Work Phone: [phone] 09:59-0400Body yyjgmf66.83 kgAijuanito Nagy CNP Work Phone: [facility] Work Phone: [phone] 09:59-0400Diastolic blood dglfopwf75 mm[Hg] Vahid Nagy CNP Work Phone: [phone] Work Phone: [phone] 09:59-0400Heart rate62 /Kip Nagy CNP Work Phone: [phone] Work Phone: [phone] 09:59-0400Respiratory rate20 /Kip Nagy CNP Work Phone: [phone] Work Phone: [phone] 09:59-0400Systolic blood vcogwtuk297 mm[Hg] Vahid Nagy CNP Work Phone: [facility] Work Phone: [phone] 13:31-0400BMI (Body Mass Index)32.52 kg/m2 [facility] 10-514672-54705182-99-7986 13:31-0400Body Dgqxyahojxx67 [degF][facility] 63-094695-28013638-61-3768 13:31-0400BP Oapqxpcqv70 mm[Hg][facility] 12-784261-40199535-88-8388 13:31-0400BP Flhxntyl273 mm[Hg][facility] 43-190169-19414705-30-9419 13:31-0400BSA (Body Surface Area)1.83 m2 [facility] 41-068767-87594131-07-0980 13:31-1137Cekbgd788.94 cmATrinity [facility] 66-955525-37708598-75-6648 13:31-0400Pulse (Heart Rate)70 /[facility] 29-060075-70840289-76-5156 13:31-0400Pulse Wpukkjke33 %[facility] 20-648961-35995691-77-2857 13:31-0400Respiratory Rate18 /[facility] 31-544984-85978611-00-3617 13:31-6663Hanoej75.08 kg[facility] 08-28-2018 12:31-0400BMI (Body Mass Index)32.52 kg/m2 [facility] 88-769719-53561659-99-5246 12:31-0400Body Whtzwkuosdu57 [degF][facility] 21-729333-42451625-98-1522 12:31-0400BP Tqkqlwphp74 mm[Hg][facility] 08-28-2018 12:31-0400BP Raunxggk910 mm[Hg][facility] 08-28-2018 12:310BSA (Body Surface Area)1.83 m2 Vahid [facility] Work Phone: [phone] 12:31-7432Gspepo440.94 Mar [facility] Work Phone: [phone] 12:31-0400Pulse (Heart Rate)70 /minE[facility] Hospitalk[facility] 66-04 12:31-0400Pulse Kpfiajbk59 %[facility] Work Phone: [phone] 12:31-0400Respiratory Rate18 /[facility] Work Phone: [phone] 12:316363Tojcng90.08 kgE[facility] Hospitalki [facility] Work Phone: [phone] 10:31-0400Body mziwnm774.94 Mar Nagy [facility] Work Phone: [facility] Work Phone: [phone] 10:31-0400Body mass index (BMI) [Ratio]32.5 kg/k1ZytjuVahid Nagy CNP Work Phone: [phone] Work Phone: [phone] 10:31-0400Body surface area Derived from formula1.77 k2XydzaVahid Nagy [facility] Work Phone: [phone] Work Phone: [phone] 10:31-0400Body xbamvonodqr59 [degF]Vahid Nagy CNP Work Phone: [phone] Work Phone: [phone] 10:31-0400Body .02 kgVahid Nagy CNP Work Phone: [phone] Work Phone: [phone] 10:31-0400Diastolic blood cjrnmryc89 mm[Hg] Vahid Nagy CNP Work Phone: [facility] Work Phone: [phone] 10:31-0400Heart rate70 /Kip Nagy CNP Work Phone: [facility] Work Phone: [phone] 10:31-0400Respiratory rate18 /Kip Nagy STUDENT COUNSELLOR Work Phone: [facility] Work Phone: [phone] 10:31-0400Systolic blood ylgsbfen961 mm[Hg] Vahid Nagy CNP Work Phone: [facility] Work Phone: [phone] 12:21-0400BP Sbwvbycvy03 mm[Hg][facility] Work Phone: [phone] 12:21-0400BP Khitgizn836 mm[Hg][facility] Work Phone: [phone] 12:11-0400BMI (Body Mass Index)33.07 kg/m2 [facility] 31-50 12:11-0400Body Iothufjemxl49.7 [degF][facility] Work Phone: [phone] 12:11-0400BP Ddnezetvk952 mm[Hg][facility] Work Phone: [phone] 12:11-0400BP Awvmepqk098 mm[Hg][facility] Work Phone: [phone] 12:11-0BSA (Body Surface Area)1.85 m2 [facility] Work Phone: [phone] 12:118735Bopock933.94 cmATrinity Health System Work Phone: [phone] 12:11-0400Pulse (Heart Rate)72 /lionelHigh[facility] Work Phone: [phone] 12:11-0400Pulse Yctdzdmy57 %[facility] Work Phone: [phone] 12:11-0400Respiratory Rate20 /[facility] Work Phone: [phone] 12:11-6655Yeqnug34.38 kgAiSt. [facility] Work Phone: [phone] 11:21-0400BP Hfksnceoc42 mm[Hg][facility] Work Phone: [phone] 11:21-0400BP Rsngetww142 mm[Hg][facility] Work Phone: [phone] 11:11-0400BMI (Body Mass Index)33.07 kg/m2 [facility] Work Phone: [phone] 11:11-0400Body Oqagdqgysay65.7 [degF][facility] Work Phone: [phone] 11:11-0400BP Aushsnyim672 mm[Hg][facility] Work Phone: [phone] 11:11-0400BP Hktvrjrh488 mm[Hg][facility] Work Phone: [phone] 11:110400BSA (Body Surface Area)1.85 m2 [facility] Work Phone: [phone] 11:116874Ninhxi329.94 cmAcarolinas continuecare hospital at pinevillee [facility] Work Phone: [phone] 11:110400Pulse (Heart Rate)72 /minHigh[facility] Work Phone: [phone] 11:11-0400Pulse Ylufphck30 %Vahid Angelita [facility] Work Phone: [phone] 11:11-0400Respiratory Rate20 /minVahid [facility] 25-98 11:117164Uednae20.38 kgE[facility] Hospitalki [facility] 44-91 09:21-0400Diastolic blood gkgkjfna53 mm[Hg] Vahid Nagy [facility] Work Phone: [phone] Work Phone: [phone] 09:21040Systolic blood xygptest430 mm[Hg] Vahid Nagy [facility] Work Phone: [phone] Work Phone: [phone] 09:11-0400Body uzrmrf827.94 cmAimeki Nagy STUDENT COUNSELLOR Work Phone: [phone] Work Phone: [phone] 09:11-0400Body mass index (BMI) [Ratio]33.1 kg/g5AudjvVahid Nagy [facility] Work Phone: [phone] Work Phone: [phone] 09:11-0400Body surface area Derived from formula1.78 r7TkzvnVahid Nagy CNP Work Phone: [phone] Work Phone: [phone] 09:110400Body xdqukucxelo58.7 [degF]Vahid Nagy CNP Work Phone: [phone] Work Phone: [phone] 09:110400Body .38 kgVahid Nagy STUDENT COUNSELLOR Work Phone: [phone] Work Phone: [phone] 09:11-0400Diastolic blood mm[Hg]Vahid Nagy STUDENT COUNSELLOR Work Phone: [phone] Work Phone: [phone] [phone] 09:11-0400Heart rate72 /Kip Nagy STUDENT COUNSELLOR Work Phone: [facility] Work Phone: [phone] 09:11-0400Respiratory rate20 /Kip Nagy STUDENT COUNSELLOR Work Phone: [facility] Work Phone: [phone] [phone] 09:11-0400Systolic blood mm[Hg] Vahid Nagy CNP Work Phone: [facility] Work Phone: [phone] 17:33-0400BMI (Body Mass Index)34.98 kg/m2 [facility] 71-124445-05954482-64-5844 17:33-0400Body Zgqojwravkh75.7 [degF][facility] 36-645672-78553717-26-6236 17:33-0400BP Hijhtzpck77 mm[Hg][facility] 07-12-2018 17:33-0400BP Ijsmldqs594 mm[Hg][facility] 05-849023-25224785-99-9077 17:33-0400BSA (Body Surface Area)1.9 e9CvacpSt. [facility] 15-659226-02921059-37-5587 17:33-2756Spjmyt040.94 cmAimee [facility] 07-12-2018 17:33-0400Pulse (Heart Rate)80 /minHigh[facility] 72-531022-06057835-52-0757 17:33-0400Pulse Exyawcdt43 %[facility] 07-12-2018 17:33-0400Respiratory Rate20 /Mariangae [facility] Work Phone: [phone] 17:33-6092Ovavtf20.97 alizejuanito BrewerH[facility] Work Phone: [phone] 16:33-0400BMI (Body Mass Index)34.98 kg/m2 [facility] Work Phone: [phone] 16:33-0400Body Wzbmcccghif64.7 [degF][facility] Work Phone: [phone] 16:33-0400BP Pslfohbkr45 mm[Hg][facility] Work Phone: [phone] 16:33-0400BP Kshbtrqk432 mm[Hg][facility] 89-20 16:33-0400BSA (Body Surface Area)1.9 m2[facility] 00-46 16:33-2300Nvsuuk000.94 cmLukki [facility] 28-30 16:33-0400Pulse (Heart Rate)80 /[facility] 00-01 16:33-0400Pulse Gthqdbmt40 %[facility] Work Phone: [phone] 16:33-0400Respiratory Rate20 /[facility] Work Phone: [phone] 16:33-5131Dcxckk76.97 kg[facility] Work Phone: [phone] 14:33-0400Body ovhvly462.94 Teresaki Nagy CNP Work Phone: [facility] Work Phone: [phone] 14:33-0400Body mass index (BMI) [Ratio]35 kg/b4MdmdwVahid Nagy CNP Work Phone: [facility] Work Phone: [phone] 14:33-0400Body surface area Derived from formula1.83 w0Cjrmljuanito Nagy CNP Work Phone: [facility] Work Phone: [phone] 14:33-0400Body vkekndlvmpr11.7 [degF]Vahid Nagy CNP Work Phone: [phone] Work Phone: [phone] 14:33-0400Body efumhf46.92 kgAijuanito Nagy CNP Work Phone: [facility] Work Phone: [phone] 14:33-0400Diastolic blood mm[Hg] Vahid Nagy CNP Work Phone: [facility] Work Phone: [phone] 14:33-0400Heart rate80 /minVahid Nagy CNP Work Phone: [phone] Work Phone: [phone] 14:33-0400Respiratory rate20 /Kip Nagy CNP Work Phone: [facility] Work Phone: [phone] 14:33-0400Systolic blood zvpeusvy942 mm[Hg] Vahid Nagy CNP Work Phone: [facility] Work Phone: [phone] [phone] 12:54-0400BMI (Body Mass Index)35.05 kg/m2 [facility] 53-633736-19426944-05-2260 12:54-0400Body Footkdflafo43 [degF][facility] 56-537676-31294682-68-2461 12:54-0400BP Iohqdlzce54 mm[Hg][facility] 21-574359-15996575-40-6788 12:54-0400BP Hnuawsrh753 mm[Hg][facility] 24-876579-92756996-51-8294 12:54-0400BSA (Body Surface Area)1.9 c9Paeie [facility] Work Phone: [phone] 12:54-4289Ybbddw351.94 cmAimee [facility] 58-650185-83342345-22-9855 12:54-0400Pulse (Heart Rate)72 /minE[facility] Hospitalki [facility] Work Phone: [phone] 12:54-0400Pulse Idkbllcy65 %[facility]id [facility] 84-786538-87914316-14-2102 12:54-0400Respiratory Rate18 /[facility] 00-423406-74544392-00-5406 12:54-0525Ohlrrm24.14 kgAigaki [facility] Work Phone: [phone] 11:54-0400BMI (Body Mass Index)35.05 kg/m2 [facility]do[facility] 53-678374-42600569-09-2977 11:54-0400Body Xoksaqnyysi40 [degF]Zach [facility]imaldoCard[facility] Hospital 66-683809-56957722-59-7478 11:54-0400BP Gahqrnqns37 mm[Hg][facility]doCard[facility] 15-858760-59374604-45-7819 11:54-0400BP Lxfjwdgz462 mm[Hg][facility]doCard[facility] 72-930808-86975247-01-0111 11:54-0400BSA (Body Surface Area)1.9 m2 [facility]doCard[facility] 61-428607-43324940-75-4513 11:54-0867Uehwgg152.94 cmSjeane Grimaldo [facility] 52-980475-24867533-84-3136 11:54-0400Pulse (Heart Rate)72 /minSjeane GrimaldoCardinal Cushing Hospital 79-248864-49856497-46-5046 11:54-0400Pulse Pnlkljqf14 %Zach Grimaldo [facility] 03-46 11:54-0400Respiratory Rate18 /minSjeane GrimaldoCardinal [facility] Hospital 50-89 11:54-2234Pepfqx13.14 kgZach Grimaldo [facility] 61-13 09:54-0400Body srxbal538.94 cmAimeki Nagy CNP Work Phone: [phone] Work Phone: [phone] 09:54-0400Body mass index (BMI) [Ratio]35 kg/r5YjmelVahid Nagy CNP Work Phone: [phone] Work Phone: [phone] 09:54-0400Body surface area Derived from formula1.83 x6CqrvvVahid Nagy CNP Work Phone: [phone] Work Phone: [phone] 09:54-0400Body ctnnfjyubao86 [degF]Vahid Nagy CNP Work Phone: [phone] Work Phone: [phone] 09:54-0400Body blziuj54.92 kgVahid Nagy CNP Work Phone: [phone] Work Phone: [phone] 09:54-0400Diastolic blood hdvjwhde30 mm[Hg] Vahid Nagy CNP Work Phone: [phone] Work Phone: [phone] 09:54-0400Heart rate72 /Kip Nagy CNP Work Phone: [phone] Work Phone: [phone] 09:54-0400Respiratory rate18 /Kip Nagy CNP Work Phone: [phone] Work Phone: [phone] 09:54-0400Systolic blood ygqdlrvu853 mm[Hg] Vahid Nagy [facility] Work Phone: [facility] Work Phone: [phone] 12:55-0400BMI (Body Mass Index)35.36 kg/m2 [facility] Work Phone: [phone] 12:55-0400Body Xexbosrozwm34.7 [degF][facility] Work Phone: [phone] 12:55-0400BP Islnimffw09 mm[Hg][facility] Work Phone: [phone] 12:55-0400BP Ysoneokq674 mm[Hg][facility] Work Phone: [phone] 12:55-0400BSA (Body Surface Area)1.91 m2 [facility] Work Phone: [phone] 12:55-5203Duvxys684.94 cmAimeNorthwest [facility] 66-539196-54316986-59-6452 12:55-0400Pulse (Heart Rate)77 /[facility] Work Phone: [phone] 12:55-0400Pulse Bsvbcpsd27 %[facility] Work Phone: [phone] 12:55-0400Respiratory Rate18 /[facility] Work Phone: [phone] 12:55-5713Oabqhm68.88 kgHigh[facility] 03-955574-97799972-43-3230 11:55-0400BMI (Body Mass Index)35.36 kg/m2 Zachernestina [facility]imaldoCard[facility] 39-227594-07417126-47-8975 11:55-0400Body Zuehawsevaj46.7 [degF][facility]doCard[facility] 05-18-2018 11:55-0400BP Dsxgwklso73 mm[Hg][facility]doCard[facility] 34-53 11:55-0400BP Hrmgunlb477 mm[Hg][facility]doCard[facility] 63-87 11:55-0400BSA (Body Surface Area)1.91 m2 Zach [facility]doCard[facility] 69-30 11:55-5709Fxybsr129.94 cmSjeane [facility] 86-87 11:55-0400Pulse (Heart Rate)77 /Lise [facility] 64-35 11:55-0400Pulse Noqvvvrz93 %Zach [facility] 18-61 11:55-0400Respiratory Rate18 /Lise [facility] 18-92 11:55-1820Jyshua97.88 kgZach Grimaldo [facility] 87-25 09:55-0400Body kwmnri333.94 Silviajoelle Nagy CNP Work Phone: [phone] Work Phone: [phone] 09:55-0400Body mass index (BMI) [Ratio]35.3 kg/x6Gilgnjuanito Nagy CNP Work Phone: [phone] Work Phone: [phone] 09:55-0400Body surface area Derived from formula1.84 e1Whskxjuanito Nagy CNP Work Phone: [phone] Work Phone: [phone] 09:55-0400Body hewiupdgkkd36.7 [degF]Vahidchristiano Nagy CNP Work Phone: [phone] Work Phone: [phone] 09:55-0400Body uguuqk16.82 kgAijuanito Nagy CNP Work Phone: [facility] Work Phone: [phone] 09:55-0400Diastolic blood minfgjwb57 mm[Hg] Vahid Nagy CNP Work Phone: [facility] Work Phone: [phone] 09:55-0400Heart rate77 /Kip Nagy CNP Work Phone: [facility] Work Phone: [phone] 09:55-0400Respiratory rate18 /Kip Nagy CNP Work Phone: [facility] Work Phone: [phone] 09:55-0400Systolic blood aiztmagt544 mm[Hg] Vahid Nagy CNP Work Phone: [facility] Work Phone: [phone] 12:55-0400BMI (Body Mass Index)35.55 kg/m2 [facility] Work Phone: [phone] 12:55-0400Body Gakkhkhtnqw38.2 [degF][facility] Work Phone: [phone] 12:55-0400BP Eqqkdtcdg91 mm[Hg][facility] Work Phone: [phone] 12:55-0400BP Pvrxubkw023 mm[Hg][facility] Work Phone: [phone] 12:55-0400BSA (Body Surface Area)1.92 m2 [facility] 43-21 12:55-1007Ramhbz983.94 cmAimeNorthwest [facility] Work Phone: [phone] 12:55-0400Pulse (Heart Rate)82 /minAimee [facility] Work Phone: [phone] 12:55-0400Pulse Qepdmdbv42 %Vahid Angelita [facility] Work Phone: [phone] 12:55-0400Respiratory Rate18 /Kip [facility] Work Phone: [phone] 12:55-3060Xvwohh55.33 Evelina [facility] Work Phone: [phone] 11:55-0400BMI (Body Mass Index)35.55 kg/m2 [facility] Work Phone: [phone] 11:55-0400Body Ybjskhzcscw09.2 [degF][facility]doCard[facility] Work Phone: [phone] 11:55-0400BP Ruvidvrui24 mm[Hg][facility]doCard[facility] Work Phone: [phone] 11:55-0400BP Qymqsfxf960 mm[Hg][facility]doCard[facility] Work Phone: [phone] 11:55-0400BSA (Body Surface Area)1.92 m2 [facility] 71-344524-46280336-15-2529 11:55-9094Zijybs637.94 cmSjeane [facility] Work Phone: [phone] 11:55-0400Pulse (Heart Rate)82 /minSjeane GrimaldoCardinal [facility] Hospital 32-518203-44360681-88-5198 11:55-0400Pulse Ulfqetyw48 %Zach Grimaldo [facility] Work Phone: [phone] 11:55-0400Respiratory Rate18 /Lise [facility] 81-792940-99965649-32-6088 11:55-1358Eqjjhy80.33 alizeshirley Grimaldo [facility] 87-022231-58022825-50-4418 09:55-0400Body sajdtj530.94 Silviajoelle Nagy CNP Work Phone: [facility] Work Phone: [phone] 09:55-0400Body mass index (BMI) [Ratio]35.5 kg/r9HftzwVahid Nagy CNP Work Phone: [phone] Work Phone: [phone] 09:55-0400Body surface area Derived from formula1.84 z1Fztfajuanito Nagy CNP Work Phone: [facility] Work Phone: [phone] 09:55-0400Body ystwdxktfyn35.2 [degF]Vahid Nagy CNP Work Phone: [facility] Work Phone: [phone] 09:55-0400Body hgzers38.28 kgAijuanito Nagy CNP Work Phone: [phone] Work Phone: [phone] 09:55-0400Diastolic blood ooxrlexx75 mm[Hg] Vahid Nagy CNP Work Phone: [phone] Work Phone: [phone] 09:55-0400Heart rate82 /Kip Nagy CNP Work Phone: [phone]-[facility] Work Phone: [phone] 09:55-0400Respiratory rate18 /Kip Nagy CNP Work Phone: [facility] Work Phone: [phone] 09:55-0400Systolic blood mm[Hg] Vahid Nagy CNP Work Phone: [facility] Work Phone: [phone] 14:54-0400BMI (Body Mass Index)35.33 kg/m2 [facility] Work Phone: [phone] 14:54-0400Body Wgxsgfddlzj53.1 [degF][facility] Work Phone: [phone] 14:54-0400BP Jcjaewgbm45 mm[Hg][facility] 06-03 14:54-0400BP Jufzqhri859 mm[Hg][facility] 06-04 14:54-0400BSA (Body Surface Area)1.91 m2 [facility] 09-15 14:54-4700Adoozn006.94 cmAimee [facility] 69-61 14:54-0400Pulse (Heart Rate)69 /[facility] 05-49 14:54-0400Pulse Gcmnyygk60 %[facility] 42-54 14:54-0400Respiratory Rate20 /[facility] 55-99 14:54-0265Eyceqh26.82 kgHigh[facility] 01-00 13:54-0400BMI (Body Mass Index)35.33 kg/m2 [facility] 85-95 13:54-0400Body Yrncpnxzjsl78.1 [degF][facility] 53-63 13:54-0400BP Zgjdlitpc25 mm[Hg][facility]illanCard[facility] 15-59 13:54-0400BP Huepgofo507 mm[Hg][facility] 47-92 13:54-0400BSA (Body Surface Area)1.91 m2 [facility] Work Phone: [phone] 13:54-2909Hulovm003.94 cmSjeane [facility] 18-17 13:54-0400Pulse (Heart Rate)69 /L[facility] 67-08 13:54-0400Pulse Kenjgmix76 %Zach Grimaldo [facility] 43-46 13:54-0400Respiratory Rate20 /[facility] 42-77 13:54-7830Dktfoc21.82 kgZach Grimaldo [facility] 76-12 11:54-0400Body aweceq108.94 Mar Nagy CNP Work Phone: [phone] Work Phone: [phone] 11:54-0400Body mass index (BMI) [Ratio]35.3 kg/i6HgazcVahid Nagy CNP Work Phone: [phone] Work Phone: [phone] 11:54-0400Body surface area Derived from formula1.84 h2QnyqaVahid Nagy CNP Work Phone: [phone] Work Phone: [phone] 11:54-0400Body dlxdiccpnwa98.1 [degF]Vahid Nagy CNP Work Phone: [phone] Work Phone: [phone] 11:54-0400Body .82 kgVahid Nagy CNP Work Phone: [phone] Work Phone: [phone] 11:54-0400Diastolic blood bxwtioit58 mm[Hg] Vahid Nagy CNP Work Phone: [phone] Work Phone: [phone] 11:54-0400Heart rate69 /Kip Nagy CNP Work Phone: [facility] Work Phone: [phone]) 650-984304-30-2018 11:54-0400Respiratory rate20 /Kip Nagy CNP Work Phone: [facility] Work Phone: [phone]) 522-598104-30-2018 11:54-0400Systolic blood rvqahrgq710 mm[Hg] Vahid Nagy CNP Work Phone: [facility] Work Phone: [phone] 514-632711-17-2017 15:36-0500BMI (Body Mass Index)39.32 kg/m2 [facility] 11-17-2017 15:36-0500Body Ryvwazhiriq92.3 [degF][facility] 11-17-2017 15:36-0500BP Mrfnavxwl16 mm[Hg][facility] 11-17-2017 15:36-0500BP Ftmghovc325 mm[Hg][facility] [phone] 15:36-0500BSA (Body Surface Area)2.02 m2 [facility] 11-17-2017 15:36-0240Mupgrf402.94 cmAimee [facility] 11-17-2017 15:36-0500Pulse (Heart Rate)78 /[facility] 11-17-2017 15:36-0500Pulse Vfarpswq88 %[facility] 11-17-2017 15:36-0500Respiratory Rate22 /[facility] 11-17-2017 15:36-0852Alltvu12.41 [facility] [phone] 14:36-0500BMI (Body Mass Index)39.32 kg/m2 [facility] [id number] 14:36-0500Body Egrojuiruya41.3 [degF][facility] [id number] 14:36-0500BP Xtkuijytv50 mm[Hg][facility] 11-17-2017 14:36-0500BP Jhllngge798 mm[Hg][facility] 11-17-2017 14:36-0500BSA (Body Surface Area)2.02 m2 [facility] 11-17-2017 14:36-6924Lcwjle144.94 cmSjeane [facility] 56-476946-66276635-19-0501 14:36-0500Pulse (Heart Rate)78 /[facility] 11-17-2017 14:36-0500Pulse Uxpeejnx13 %Zach [facility] 11-17-2017 14:36-0500Respiratory Rate22 /minSjeane [facility] 11-17-2017 14:36-7035Ysezdp89.41 Deb Grimaldo [facility] 10-17-2017 13:35-0400BMI (Body Mass Index)40.08 kg/m2 Vahid [facility] 10-17-2017 13:35-0400Body Yzllixdlkmi83.8 [degF][facility] 10-17-2017 13:35-0400BP Ykkvmiuks94 mm[Hg][facility] 10-17-2017 13:35-0400BP Osrimvxg108 mm[Hg][facility] [id number] 13:35-0400BSA (Body Surface Area)2.04 m2 [facility] 10-17-2017 13:35-0400BSA (Body Surface Area)2.03 m2 [facility] 10-17-2017 13:35-8454Tijspu161.94 cmAimee [facility] 10-17-2017 13:35-0400Pulse (Heart Rate)73 /[facility] 10-17-2017 13:35-0400Pulse Pjbkygmj33 %[facility] 10-17-2017 13:35-0400Respiratory Rate20 /[facility] 10-17-2017 13:35-5224Dilqzu41.22 kgAiSt[facility] 10-17-2017 12:35-0400BMI (Body Mass Index)40.08 kg/m2 [facility] [phone] 12:35-0400Body Dmfjmkhqwpg16.8 [degF][facility] 10-17-2017 12:35-0400BP Sqmvqfzbf92 mm[Hg][facility] 10-17-2017 12:35-0400BP Wazcfgbd234 mm[Hg][facility] 10-17-2017 12:35-0400BSA (Body Surface Area)2.04 m2 [facility] 10-17-2017 12:35-0400BSA (Body Surface Area)2.03 m2 [facility] [id number] 12:35-4872Utthvi696.94 cmSjeane [facility] 41-874269-19598204-10-7307 12:35-0400Pulse (Heart Rate)73 /minSjeane [facility] 76-269381-42127627-72-7034 12:35-0400Pulse Qncbwroi05 %Zach Grimaldo [facility] 10-17-2017 12:35-0400Respiratory Rate20 /[facility] 19-352178-32846291-64-1696 12:35-2238Ltovkx08.22 kgStshirley [facility] 33-463270-22509266-11-1103 13:31-0400BMI (Body Mass Index)39.16 kg/m2 [facility] 38-300820-77903312-62-4155 13:31-0400Body Kvsohwocxhq26.9 [degF][facility] Work Phone: [phone] 13:31-0400BP Yiyxnwhvm77 mm[Hg][facility] Work Phone: [phone] 13:31-0400BP Vwvugtxf033 mm[Hg][facility] 27-767603-72238019-50-7217 13:31-0400BSA (Body Surface Area)2.01 m2 [facility] 05-339843-05726351-45-8655 13:31-1128Hwcazr356.94 cmAimee [facility] 52-234132-38592202-64-7490 13:31-0400Pulse (Heart Rate)72 /minAimee [facility] Work Phone: [phone] 13:31-0400Pulse Qegdecmh40 %Vahid Nagy [facility] Work Phone: [phone] 13:31-0400Respiratory Rate22 /lioneljuanito [facility] Work Phone: [phone] 13:8270Pwlvfm92.01 Evelina [facility] Work Phone: [phone] 12:31-0400BMI (Body Mass Index)39.16 kg/m2 [facility] Work Phone: [phone] 12:31-0400Body Xakiehjgczl05.9 [degF][facility] Work Phone: [phone] 12:31-0400BP Gnsolozli30 mm[Hg][facility] 85-78 12:31-0400BP Awebqsgn688 mm[Hg][facility] Work Phone: [phone] 12:31-0BSA (Body Surface Area)2.01 m2 [facility] Work Phone: [phone] 12:31-5225Rkoxad656.94 cmSjeane [facility] Work Phone: [phone] 12:310Pulse (Heart Rate)72 /minSjeane [facility]Card[facility] Work Phone: [phone] 12:31-0400Pulse Aiamdsim45 %Zach Grimaldo [facility] Work Phone: [phone] 12:310400Respiratory Rate22 /Lise [facility] Work Phone: [phone] 12:318551Lybcve34.01 Deb Grimaldo [facility] 98-548838-17455861-99-2775 11:14-0500BMI (Body Mass Index)40.32 kg/m2 [facility] 66-248957-83700771-33-5460 11:14-0500Body Ozhnqmyhjqs92 [degF][facility] 31-335598-77753399-93-2660 11:14-0500BP Lbmohztgn38 mm[Hg][facility] 52-431547-51577042-91-4298 11:14-0500BP Fhybsijg977 mm[Hg][facility] 47-866652-38025316-93-8006 11:14-0500BSA (Body Surface Area)2.04 m2 [facility] 61-622935-68205310-10-4995 11:14-2583Ylrcfn379.94 cmAimeNorthwest [facility] 42-031378-67576456-38-8421 11:14-0500Pulse (Heart Rate)86 /[facility]High[facility] 69-953076-74681833-60-9556 11:14-0500Pulse Gqwqvypp85 %[facility] 59-652807-16596737-79-9667 11:14-3697Gnybqf96.79 kgHigh[facility] 67-610913-81371041-06-9158 10:14-0500BMI (Body Mass Index)40.32 kg/m2 [facility] 17-292840-38977093-51-5304 10:14-0500Body Eaqjxxpladf86 [degF]Zachernestina GrimaldoCard[facility] 33-747805-10848975-90-0208 10:14-0500BP Lualvnyxq98 mm[Hg]Zachernestina [facility]doCard[facility] 16-998392-00221804-41-3080 10:14-0500BP Cwekeyuj726 mm[Hg]Zachernestina [facility]doCard[facility] 25-483548-63822232-19-2267 10:14-0500BSA (Body Surface Area)2.04 m2 [facility] 62-447864-34193342-38-4686 10:146668Zlyexs473.94 cmSteven [facility] 06-983114-80467535-06-4179 10:14-0500Pulse (Heart Rate)86 /minSjeane [facility] 32-569542-28752372-27-6976 10:14-0500Pulse Ivabdnfb07 %Zach [facility] 89-352364-78333597-64-1429 10:14-8329Lfvwio14.79 kgStshirley Grimaldo [facility] 12-11-2015 12:30-0500BMI (Body Mass Index)40.53 kg/m2 [facility] 12-11-2015 12:30-0500Body Zywjmeebnru96.1 [degF][facility] 12-11-2015 12:30-0500BP Riysmypnd41 mm[Hg][facility] 12-11-2015 12:30-0500BP Usspiemy936 mm[Hg][facility] 12-11-2015 12:30-0500BSA (Body Surface Area)2.05 m2 [facility] 12-11-2015 12:30-9095Kppxti153.94 cmAimee [facility] 12-11-2015 12:30-0500Pulse (Heart Rate)82 /[facility] 12-11-2015 12:30-0500Respiratory Rate18 /[facility] 12-11-2015 12:30-1086Nhyuvm39.3 kgHigh[facility] 12-11-2015 11:30-0500BMI (Body Mass Index)40.53 kg/m2 [facility] 21-957970-98012848-13-2630 11:30-0500Body Hofmdtzvcro90.1 [degF][facility] 47-57684083-57-9309 11:30-0500BP Sbfezjvag35 mm[Hg][facility] 74-023852-51121123-67-8771 11:30-0500BP Zwteccem696 mm[Hg][facility] 12-11-2015 11:30-0500BSA (Body Surface Area)2.05 m2 [facility] 12-11-2015 11:30-8803Kbxeke220.94 cmSjeane [facility] 27-067601-49429838-16-2678 11:30-0500Pulse (Heart Rate)82 /[facility] 64-801346-51273283-96-9019 11:30-0500Respiratory Rate18 /[facility] 40-18939511-97-8468 11:30-2730Hajpyv79.3 kgStshirley [facility] 11-12-2015 11:50-0500BP Rysybzugw71 mm[Hg]Vahid [facility] 11-12-2015 11:50-0500BP Sedwhztm232 mm[Hg][facility] 11-12-2015 11:50-0500Pulse (Heart Rate)85 /lionelChristoki [facility] 11-12-2015 11:34-0500BMI (Body Mass Index)39.77 kg/m2 [facility] 82-02 11:34-0500Body Rzjiesneevz40 [degF][facility] 25-808806-35820071-07-2831 11:34-0500BP Ecsvkhexp74 mm[Hg][facility] 11-12-2015 11:34-0500BP Arghatqz693 mm[Hg][facility] 11-12-2015 11:34-0500BSA (Body Surface Area)2.03 m2 [facility] 11-12-2015 11:34-8491Unspzf927.94 cmAcarolinas continuecare hospital at pinevilleki [facility] 78-581489-17412318-46-7087 11:34-0500Pulse (Heart Rate)88 /[facility]High[facility] 11-12-2015 11:34-0500Pulse Dtoevsqg83 %[facility] 16-328193-83041379-29-9048 11:34-0500Respiratory Rate18 /[facility] 33-363705-26731558-17-2312 11:34-0848Tamdzi38.48 kgHigh[facility] 11-12-2015 10:50-0500BP Vqocgbksa33 mm[Hg][facility] 54-744532-28546416-86-7017 10:50-0500BP Bmpujafw239 mm[Hg][facility] 11-12-2015 10:50-0500Pulse (Heart Rate)85 /minStenathalie DillanCardinal [facility] 11-12-2015 10:34-0500BMI (Body Mass Index)39.77 kg/m2 Zach [facility] 11-12-2015 10:34-0500Body Vahnqlziuff33 [degF][facility] 11-12-2015 10:34-0500BP Audwivslo28 mm[Hg][facility] 11-12-2015 10:34-0500BP Brmwtkpj821 mm[Hg][facility] 11-12-2015 10:34-0500BSA (Body Surface Area)2.03 m2 [facility] 11-12-2015 10:34-2239Woccho711.94 cmSjeane [facility] 11-12-2015 10:34-0500Pulse (Heart Rate)88 /[facility]athalie [facility] 11-12-2015 10:34-0500Pulse Xfjiotrh64 %Zach [facility] 11-12-2015 10:34-0500Respiratory Rate18 /Lise [facility] 11-12-2015 10:34-3448Bqzktx95.48 kgStshirley Grimaldo [facility] Encounters Encounter DateEncounter TypeCare ProviderFacilityStart: 01-14-2025 End: 98-83-6739Oaxila flowsheetSteven A Rusher DPM Work Phone: [facility] PodiatryStart: 01-14-2025 End: 20-28-1685Jozbdf flowsheetSteven A Rusher DPM Work Phone: [facility] PodiatryStart: 01-13-2025 End: 76-78-7985udjyqxrigvIHGKSR [facility]tart: 01-05-2025 End: 15-45-5180Kybmthqif department patient visitSTEUniversity Hospitals Parma Medical Centertart: 01-04-2025 End: 95-17-0673gxgmiebuheZKVNUB [facility] HospitalStart: 01-01-2025 End: 31-53-6056jgobiheapeFKYFFACleveland Clinic [facility] HospitalStart: 12-30-2024 End: 96-18-6350Cpuixljssw and management of inpatientSalexandrorebel Lane Jerica DO Work Phone: [facility] Comment on above:Acute cystitis without hematuria (Primary Dx); HypoxiaStart: 12-21-2024 End: 46-82-3405Tvpbkzgnl encounterVik Vargas NP Work Phone: [facility] CenternceStart: 12-13-2024 End: 17-55-6463Pgbmjpkpxw and management of inpatientSTEMcLeod Health Clarendon HospitalStart: 12-08-2024 End: 54-59-6959Gsrnjxercvkgk procedureStenathalie Saravia DPM Work Phone: [facility] InStart: 12-05-2024 End: 42-08-1440Ciwovggktt and management of inpatientSTEMcLeod Health Clarendon HospitalStart: 11-19-2024 End: 60-77-8373Mlooftaci department patient visitSMARIA ELENA [facility] DepartmentComment on above:Chronic right hip pain (Primary Dx); Open wound of foot excluding toes; Chronic right hip pain; Lumbar back pain with radiculopathy affecting right lower extremity; Chronic left hip pain; Chronic pain syndrome; Sacral painStart: 10-22-2024 End: 31-32-3645Hwwvlyaisi and management of inpatientMARK W Pedro [facility] HospitalStart: 31-70-8419yzpzwefjthLHJBLLPrisma Health [facility] HospitalStart: 09-03-2024 End: 72-82-8871vxbhwcacdiGGPPNBMyMichigan Medical Center Clare HospitalStart: 09-03-2024 End: 16-22-6524Ndcbrpaugk hospital visit by physicianSmaria elena Rodriguez MD Work Phone: [facility] LABStart: 08-12-2024 End: 91-09-8660Vhtbcmktiy and management of inpatientSmaria elena Rodriguez MD Work Phone: mthz [facility] MED SURGComment on above:Open wound of foot excluding toes (Primary Dx); Open wound of toe, initial encounter; PVD (peripheral vascular disease) with claudication; Unable to care for self; Chronic right hip pain; Lumbar back pain with radiculopathy affecting right lower extremity; Chronic left hip pain; Chronic pain syndromeStart: 08-07-2024 End: 15-89-6111Fooyqqeab encounterProlake [facility] Medication Management Work Phone: [facility] Pharmacy Medication ManagementStart: 08-06-2024 End: 13-12-2473Hojtujxnba and management of inpatientSmaria elena Rodriguez MD Work Phone: mthz [facility] MED SURGComment on above:Claudication in peripheral vascular disease (Primary Dx); PAD (peripheral artery disease); Ulcer of both feet with fat layer exposed (HCC); Oxygen dependent - 2L per baseline; Cellulitis of lower extremity, unspecified laterality; Fall, subsequent encounterStart: 07-27-2024 End: 49-39-0134eklsmrfpzqNIQVRH [facility] Hospitaltart: 07-24-2024 End: 43-15-8975Leqfrjlwd department patient visitSWexner Medical Centertart: 07-17-2024 End: 43-65-0064Rbgivmblu encounterCatPaulding County Hospital Pharmacy Medication ManagementStart: 07-13-2024 End: 50-84-3781Tymmgbcigu and management of inpatientSWexner Medical Centertart: 05-16-2024 End: 65-19-0213Kgzcjqwbm department patient visitSWexner Medical Centertart: 04-17-2024 End: 40-65-2347Sggqxw OnlyRebeca Johnson MD Work Phone: ProDay[facility] Centerca Surgeons Sign InStart: 04-17-2024 End: 56-82-2157Izytylxzno and management of inpatientSGenesis Hospitaltart: 04-16-2024 End: 95-16-4497Ieztrcwtp department patient visitSGUSTAVO RODRIGUEZWexner Medical Center HospitalStart: 03-27-2024 End: 45-14-5800Nkjeodqxs department patient visitSTEBANNER IRONWOOD [facility]ICAL [facility] JENNIFERWexner Medical Center HospitalStart: 03-18-2024 End: 69-48-6477Xvzbptloe department patient visitSOH[facility] JENNIFERWexner Medical Center HospitalStart: 62-82-1808Bln-patient / Non-visitDO Carlo Grimaldo Work Phone: [facility] V[facility] Work Phone: Start: 93-05-9510Ykc-patient / Non-visitDO Carlosandee Grimaldo Work Phone: [facility] Pulmonary Disease Work Phone: Start: 01-19-2024 End: 81-25-4749Ogezwrnzps and management of inpatientDO Carlo Grimaldo Work Phone: [facility] Work Phone: Start: 01-14-2024 End: 01-89-9085Rqjqal Aleida Vallejo [facility]CAREProMedica Physicians Digestive HealthcareComment on above:Gastrointestinal hemorrhage, unspecified gastrointestinal hemorrhage type (Primary Dx); Chronic gastrointestinal hemorrhage; Gastric ulcer without hemorrhage or perforation, unspecified chronicityStart: 01-13-2024 End: 99-15-0000Tunsybjgg Mateo DWYERAProMedbenedicto Physicians Digestive HealthcareComment on above:Hospital Follow-upStart: 01-02-2024 End: 11-44-0615Mkxpqsdgx department patient visitGERBER Calixto [facility] HospitalStart: 11-27-2023 End: 59-57-3111ihottxobskKDNNCL IACOBMercy [facility] HospitalStart: 11-11-2023 End: 02-70-0066Lgjikqmgwh hospital visit by Layne Rodriguez MD Work Phone: [facility] RadiologyStart: 12-13-2022 End: 93-52-9590Eisyavftld and management of [facility] HealthINNA MARIEE [facility] Hospitaltart: 08-13-2022 End: 00-30-4748Hvxzzyvbyz hospital visit by Layne Rodriguez MD Work Phone: mthz LaboratoryComment on above:Chronic obstructive pulmonary disease, unspecified COPD type (HCC); Chronic right hip pain; Sacral pain; Lumbar back pain with radiculopathy affecting right lower extremity; Chronic left hip painStart: 07-29-2022 End: 43-03-0796Nfcifdvku department patient visitSmaria elena Rodriguez MD Work Phone: [facility] EDComment on above:Coccyx pain (Primary Dx)Start: 07-26-2022 End: 01-72-3183Huygkrsloj hospital visit by Layne Rodriguez MD Work Phone: mthz LaboratoryComment on above:Primary hypertension; Lipid screening; Hypothyroidism, unspecified type; Hyperglycemia; Chronic obstructive pulmonary disease, unspecified COPD type (HCC); Chronic right hip pain; Sacral pain; Lumbar back pain with radiculopathy affecting right lower extremity; Chronic left hip pain; Chronic pain syndromeStart: 07-21-2022 End: 74-39-8070Eibbchtaw department patient visitSmaria elena Rodriguez MD Work Phone: [facility] EDComment on above:Contusion of coccyx, initial encounter (Primary Dx); Fall, initial encounterStart: 78-87-8419rzvpmwyozdHFQPK COTTEN Facility:[facility]tart: 86-71-0216uyyyzbicbiPRFOZ COTTEN Facility:[facility]tart: 04-27-2022 End: 47-52-9951Rthaya consultation new/estab patient 39 Jojo Chery APRN-STUDENT COUNSELLOR Work Phone: General and Gastrointestinal Surgery [facility] Comment on above:Ventral hernia without obstruction or gangrene (Primary Dx); Tobacco useStart: 01-04-2022 End: 81-02-4423Ziklcnphvm hospital visit by [facility] Mri ScannerMTHZ LaboratoryComment on above:Chronic right hip painRecurrent abdominal hernia without obstruction or gangrene, unspecified hernia type; Right lower quadrant abdominal massStart: 67-06-0816yfitsxrjetIFUSY COTTEN Facility[facility]tart: 10-12-8458uhvtrkulywQEUUG COTTEN Facility:[facility]tart: 08-25-2021 End: 90-46-4220awqgbgiwoaSY DOCTOR MISCFacility:F2Yvsns: 07-19-2021 End: 82-85-6272inbjqyfojwNCUGNP Y HANFacility:[facility]tart: 07-19-2021 End: 19-18-9830Feunztyrdg hospital visit by Sylvie Pickett MD Work Phone: [facility] EndoscopyComment on above:Pancreatic mass Start: 06-20-2021 End: 85-76-3288Omxauknrpy hospital visit by [facility] Cat Scan RoomGOOD [facility] LaboratoryComment on above:Urinary incontinence, unspecified typeRight sided abdominal painStart: 04-10-2021 End: 16-90-7688Lqmitaavhv hospital visit by [facility] Xr [address] Room [address] [place] [address] RadiologyComment on above:Chronic right hip pain; Fall, initial encounter; Right hip painStart: 03-17-2021 End: 73-27-1832Osusoticg department patient visitSmaria elena Rodriguez MD Work Phone: [facility] EDComment on above:Pneumonia due to infectious organism, unspecified laterality, unspecified part of lung (Primary Dx); Cellulitis of left lower extremity; Acute on chronic respiratory failure with hypoxia (HCC); Pleural effusion, bilateralStart: 02-09-2021 End: 59-98-5762Umplfegew department patient visitCincinnati [facility] EDComment on above:Closed head injury, initial encounter (Primary Dx); Fall, initial encounter; Contusion of right knee, initial encounterStart: 01-17-2021 End: 88-31-4578Cqarbwyvr department patient visitMarita Munoz DO Work Phone: [facility] EDComment on above:Intractable vomiting with nausea, unspecified vomiting type (Primary Dx)Start: 01-12-2021 End: 88-40-4680Xeizwtyhq department patient visitAlbert Ibrahim DO Work Phone: [facility] EDComment on above:Near syncope (Primary Dx); Multiple contusions; Abrasion of right knee, initial encounterStart: 12-04-2020 End: 53-61-7804Wkwnjgupi department patient visitMukesh Marley MD Work Phone: [facility] EDComment on above:Pelvic pain (Primary Dx)Start: 04-12-2020 End: 34-82-5380Igwmacdavab [facility] Work Phone: [facility] Work Phone: Start: 04-05-2020 End: 79-73-0943Aqlevdome department patient visitChfantatrell Saeed Alexander Work Phone: [facility] EDComment on above:Acute right- sided low back pain without sciatica (Primary Dx)Start: 03-21-2020 End: 07-74-6596Vlxhwiavy department patient visitAimeki [facility] EDComment on above:Sacroiliac joint pain (Primary Dx)Start: 03-18-2020 End: 05-31-1165Rfitdhqszz and management of inpatientHeminderet Martinez Work Phone: stvz CAR 1Comment on above:S/P cardiac cath; S/P angioplasty with stentStart: 03-17-2020 End: 26-40-7089Hitmgraeic hospital visit by [facility]St[facility] Lease Picker 1MTHZ CATH LABStart: 03-17-2020 End: 98-41-7750Jcsmxqgszo and management of inpatientAli F O Ahmad Work Phone: mthz [facility] MED SURGComment on above:Chest pain, unspecified type (Primary Dx)Start: 03-13-2020 End: 82-91-6127Acaxddqpd department patient visitMukesh Marley Work Phone: [facility] EDComment on above:Congestive heart failure, unspecified HF chronicity, unspecified heart failure type (HCC) (Primary Dx); Bronchitis; COPD exacerbation (HCC)Start: 02-12-2020 End: 25-28-2157Ubtiqbnle department patient visitDeion Loaiza Work Phone: [facility] EDComment on above: Osteoarthritis, unspecified osteoarthritis type, unspecified site (Primary Dx); Avascular necrosis (HCC); Urinary tract infection without hematuria, site unspecifiedStart: 02-04-2020 End: 60-58-1235Auxvsqtlky hospital visit by [facility] Lease Picker 1MTHZ CATH LABStart: 01-28-2020 End: 43-03-3874Nvsfecqynn hospital visit by Aaliyah Hernandez [facility] CTRStart: 01-28-2020 End: 03-33-7289Eedqvoxusqx patientKaitlupis Dina Work Phone: [facility] Work Phone: Start: 11-16-2019 End: 32-47-2593Zjhiwzepwj hospital visit by Aaliyah Hernandez [facility] CTRStart: 11-16-2019 End: 03-13-2028Ubauyjo encounter procedureAlpakleber Capps Work Phone: [facility] Work Phone: Start: 11-16-2019 End: 86-91-4707Vexwnvybkvb lucilaki Nagy Work Phone: [facility] Work Phone: Start: 10-21-2019 End: 93-13-7975Tdbbgiudk department patient visitMukesh Marley Work Phone: [facility] EDComment on above:[place]ia choudhury, right, initial encounter (Primary Dx)Start: 10-21-2019 End: 43-09-9214Tajsjqeyvdz patientNitza Mark Work Phone: [facility] Work Phone: Start: 10-21-2019 End: 78-14-7120Fxsirlubzod patientKatherine Mark Work Phone: [facility] Work Phone: Start: 10-07-2019 End: 53-87-6383Phfhjzhle department patient visitSyed Ariana Whitten Work Phone: [facility] EDComment on above:Opioid overdose, accidental or unintentional, initial encounter (HCC) (Primary Dx); Pneumonia due to organismStart: 10-06-2019 End: 25-29-7934Qnnqlqqhn department patient visitMicHarrison Community Hospital EDComment on above:Chronic obstructive pulmonary disease with acute exacerbation (HCC) (Primary Dx); Pneumonia due to organism; Cough; Chronic bilateral low back pain with bilateral sciaticaStart: 10-01-2019 End: 63-68-9262Prdejyppuc hospital visit by [facility] Lease Picker Rm 1MTHZ CATH LABComment on above:Canceled (Patient preference)Start: 09-28-2019 End: 52-42-9670Dmnezsdwxy hospital visit by physicianMoh[facility] Kwakuid Screening ScheduleGOOD SAMARITAN HOSPITAL Covid ScreeningComment on above:ArrivedStart: 09-24-2019 End: 10-04-7340Qlnwpngrfdb Pascual Holliday Work Phone: [facility] Work Phone: Start: 09-23-2019 End: 08-46-7898Nobwcwultwnz consultation with Tre Nagy Work Phone: [facility] Work Phone: Start: 09-21-2019 End: 28-23-8237Qddoidankv hospital [facility] Comment on above:ASHD (arteriosclerotic heart disease); S/P angioplasty with stent; Mixed hyperlipidemia; Essential hypertension; Tobacco abuse counseling; Bilateral carotid artery disease, unspecified type (HCC); PVD (peripheral vascular disease) ([facility]); Abdominal aortic aneurysm (AAA) without rupture ([facility]); SOB (shortness of breath)Start: 09-21-2019 End: 78-26-2210Kbcnlxhuss hospital [facility] by [facility] Paz[facility] Pat Screening ScheduleGOOD SAMARITAN HOSPITAL PRE ADMITStart: 09-17-2019 End: 97-97-0940Xbxdtpfbdc hospital visit by [facility] Cardiology Stress Room [facility] Stress LabComment on above:ArrivedStart: 09-16-2019 End: 66-89-2555Crlnttmogd hospital visit by [facility] Cardiology Stress Room [facility] Stress LabComment on above:ASHD (arteriosclerotic heart disease); S/P angioplasty with stent; Mixed hyperlipidemia; Essential hypertension; Tobacco abuse counseling; Abdominal aortic aneurysm (AAA) without rupture (HCC); PVD (peripheral vascular disease) (HCC); Bilateral carotid artery disease, unspecified type (HCC); Lightheadedness; DizzinessStart: 09-15-2019 End: 22-34-0818PdttyzmQrigkch Short Work Phone: [facility] Work Phone: Start: 09-15-2019 End: 02-46-1902Iknblxmmtvjf consultation with TruHearing Work Phone: [facility] Work Phone: Start: 09-09-2019 End: 12-11-4671Fweodkfoucij consultation with [employer] Work Phone: [facility] Work Phone: Start: 09-03-2019 End: 34-08-5547Hjryuarszw hospital visit by [facility] Echo RoomGO[facility] EchocardiographyComment on above:ASHD (arteriosclerotic heart disease); S/P angioplasty with stent; Mixed hyperlipidemia; Essential hypertension; Tobacco abuse counseling; Abdominal aortic aneurysm (AAA) without rupture (HCC); PVD (peripheral vascular disease) (HCC); Bilateral carotid artery disease, unspecified type (HCC); Lightheadedness; DizzinessStart: 08-26-2019 End: 05-46-6995Lqdygzftnbjw consultation with [employer] Work Phone: [facility] Work Phone: Start: 07-30-2019 End: 07-40-8163Rxunvmujkhvq consultation with [employer] Work Phone: [facility] Work Phone: Start: 07-18-2019 End: 53-86-9353Xvvviezihp and management of inpatientJames A Deb Work Phone: stvz Ortho/Med SurgComment on above:Atherosclerosis of artery of extremity with intermittent claudication (HCC); Incontinence; Chronic obstructive pulmonary disease, unspecified COPD type (HCC)Start: 07-17-2019 End: 64-28-5784Jeqnysenl department patient visitTyza Diaz Work Phone: [facility] EDComment on above:Acute respiratory failure with hypoxia and hypercapnia (HCC) (Primary Dx); Viral pneumonia; Acute pulmonary edema (HCC)Start: 07-09-2019 End: 00-15-9810Xqvbrgobhpch consultation with Tre Nagy Work Phone: [facility] Work Phone: Start: 06-17-2019 End: 60-60-0496Iauskgcmfkb Tre Nagy Work Phone: [facility] Work Phone: Start: 06-15-2019 End: 36-80-7720Elipsqqyc department patient visitMukesh Ki Martinezzara Work Phone: [phone] [place] [address] EDComment on above:Benign paroxysmal positional vertigo, unspecified laterality (Primary Dx)Start: 05-27-2019 End: 12-23-1506Hhokpfgkr department patient visitTyza Diaz Work Phone: [phone] [place] [address] EDComment on above:Contusion of left hand, initial encounter (Primary Dx)Start: 05-01-2019 End: 23-12-4749Ylebtrkhxsn Tre Nagy Work Phone: [facility] Work Phone: Start: 04-21-2019 End: 63-78-1224Xbblvuualc and management of inpatientJustin Andes DO Work Phone: mthz [facility] MED SURGComment on above:Pneumonia due to organism (Primary Dx); COPD, severity to be determined (HCC); COPD with exacerbation (HCC)Start: 04-14-2019 End: 96-55-0017Iakpjxyxyio patientStenathalie Grimaldo Work Phone: [facility] Work Phone: Start: 04-14-2019 End: 34-88-5238Wdswdiolbgr Tre Nagy Work Phone: [facility] Work Phone: Start: 04-12-2019 End: 29-11-6034Xsewpucnr department patient visitAlefortunato Sebastian DO Work Phone: [facility] EDComment on above:Acute pain of left shoulder (Primary Dx); DizzinessStart: 03-20-2019 End: 32-47-9739Ufykwgqbajg Tre Nagy Work Phone: [facility] Work Phone: Start: 03-12-2019 End: 77-25-4781Uxziykr encounter procedureVahid Nagy Work Phone: [facility] Work Phone: start: 03-03-2019 End: 04-06-6855Btvlnpc encounter procedureVahid Nagy Work Phone: [facility] Work Phone: Start: 03-03-2019 End: 97-25-0193Cyfokpgwmkk patientCabriana Malik Work Phone: [facility] Work Phone: Start: 02-23-2019 End: 15-39-5177Oceitmewv department patient visitMiccolten Sanjaybalaji Work Phone: [facility] EDComment on above:Abdominal pain, unspecified abdominal location (Primary Dx); Anxiety stateStart: 02-23-2019 End: 54-95-9117Puxmnfnwhp hospital visit by [facility] MRIComment on above:Spinal stenosis of lumbar region, unspecified whether neurogenic claudication present; DDD (degenerative disc disease), lumbarStart: 02-19-2019 End: 96-05-9061Wbanufxnoxc patientSteven Grimaldo Work Phone: [facility] Work Phone: Start: 02-19-2019 End: 96-94-1260Rgfrftfphvv patientVahid Nagy Work Phone: [facility] Work Phone: Start: 01-29-2019 End: 24-80-9839Zxjfazn evaluation of patient and reportLee Karla Adams Work Phone: [facility] Work Phone: Start: 01-22-2019 End: 58-39-5199Ssmulrxaely Tre Nagy Work Phone: [facility] Work Phone: Start: 01-14-2019 End: 22-18-1438Kvqzmrg encounter procedureCashashankradha King Work Phone: [facility] Work Phone: start: 01-13-2019 End: 91-64-4661Eerultslc department patient visitAiMemorial Health [facility] EDComment on above:Near syncope (Primary Dx); Fall from standing, initial encounter; HyponatremiaStart: 01-12-2019 End: 98-87-1846Prbflsyvec hospital visit by physicianSt. [facility] Karen Carroll [address] [place] [address] RadiologyComment on above:Pain of left upper extremityStart: 01-12-2019 End: 16-27-5488Vmurygcyjmu patientCabriana aMlik Work Phone: [facility] Work Phone: Start: 12-11-2018 End: 20-24-9818Amtnjepbnmy Tre Nagy Work Phone: [facility] Work Phone: Start: 10-30-2018 End: 01-71-7722Rvhfobcwhvq [facility] Centerki Angelita Work Phone: [facility] Work Phone: Start: 09-30-2018 End: 58-99-9317Gcrmjlahcpz patientStenathalie Grimaldo Work Phone: [facility] Work Phone: Start: 08-27-2018 End: 59-08-6379Scbnntsryyg patientVahid Nagy Work Phone: [facility] Work Phone: Start: 07-28-2018 End: 25-83-0447Fsrfypgccqj patientVahid Nagy Work Phone: [facility] Work Phone: Start: 06-27-2018 End: 44-73-2171Ifvjhglkgnp patientVahid Nagy Work Phone: [facility] Work Phone: Start: 06-10-2018 End: 96-31-2782Iumxirb encounter procedureAijuanito Nagy Work Phone: [facility] Work Phone: start: 05-30-2018 End: 69-20-4044Ldsrhoctzoi patientVahid Nagy Work Phone: [facility] Work Phone: Start: 05-07-2018 End: 87-18-7936Taujlwk encounter procedureVahid Nagy Work Phone: [facility] Work Phone: start: 04-29-2018 End: 14-40-6728Sdrmkqbovkp patientVahid Nagy Work Phone: [facility] Work Phone: Start: 36-12-9358Hugcrd outpatient visit 15 minutes Jenelle Bonilla [facility] 03-26-2018 End: 58-58-3059Akrinmq encounter procedureAijuanito Nagy [facility] Work Phone: [facility] Work Phone: start: 84-62-0230Aqtimjp encounter procedureMELISSA MADDISON FOXFacility:[facility] Hospitaltart: 02-24-2018 End: 17-43-5086Owvtuwy encounter procedureVahid Nagy CNP Work Phone: [facility] Work Phone: start: 82-85-7963Nhtdij outpatient visit 15 minutes Vahid Nagy [facility]: 57-34-6039Mktmpq outpatient visit 15 minutesVahid Nagy Other [facility]: 02-10-2018 End: 89-53-6701Scvyjrr encounter procedureVahid Nagy CNP Work Phone: [facility] Work Phone: start: 01-20-2018 End: 95-17-7710Reoqhco encounter procedureVahid Nagy CNP Work Phone: [facility] Work Phone: Start: 01-20-2018 End: 38-69-6654Yrmkle outpatient visit 15 minutesVahid Nagy Other [facility]: 12-27-2017 End: 88-47-0527Dbuoxth encounter procedureVahid Nagy CNP Work Phone: [facility] Work Phone: start: 12-27-2017 End: 93-12-1190Ufnvql outpatient visit 15 minutesVahid Nagy Other [facility]: 11-26-2017 End: 50-62-8638Okksnwt encounter procedureVahid Nagy CNP Work Phone: [facility] Work Phone: Start: 36-47-9661Wklf bld gluc mntr dev cleared fda spec home useAimee DaniellaenHealth [facility] start: 11-26-2017 End: 56-58-8640Vkmlsb outpatient visit 25 minutesVahid Nagy [facility]: 10-22-2017 End: 82-51-1038Ctbptgb encounter procedureVahid Nagy CNP Work Phone: [facility] Work Phone: start: 10-22-2017 End: 13-53-8108Scribb outpatient visit 15 minutesVahid Nagy Other [facility]: 10-10-2017 End: 49-17-2143Wzvruo outpatient visit 15 minutesSingh Azevedo [facility]: 10-10-2017 End: 54-81-2022Vjnbheg encounter procedureVahid Nagy CNP Work Phone: [facility] Work Phone: start: 09-11-2017 End: 53-64-1630Vcfvqrv encounter procedureAijuanito Nagy CNP Work Phone: [facility] Work Phone: start: 09-11-2017 End: 86-15-8548Okkergioqe HealthStevernestina Grimaldo Other [facility]: 46-16-0873Waav bld gluc mntr dev cleared fda spec home useSteven RobinsonCardinal Cushing Hospital start: 09-11-2017 End: 89-92-3486Yrhbad outpatient visit 15 minutesVahid Nagy Other [facility]: 08-16-2017 End: 17-81-3965Jrvfzfd encounter procedureAijuanito Nagy CNP Work Phone: [facility] Work Phone: start: 29-93-9962Aeov bld gluc mntr dev cleared fda spec home useSteven RobinsonCardinal Cushing Hospital start: 08-16-2017 End: 50-85-1741Ojijbc outpatient visit 15 minutesVahid Nagy Other [facility]: 08-06-2017 End: 77-35-4392Emkhrfw encounter procedureAijuanito Nagy CNP Work Phone: [facility] Work Phone: Start: 61-39-8095Fsbgtngfqs examination, unspecified Vahid [facility] Start: 30-52-7303P-reactive proteinSterutherford regional health system Grimaldo [facility] Start: 29-02-0531Lgagaivbyhsmh metabolic panelSteStone County Medical Center Start: 30-42-2667Urm bone density study 1/> sites axial skelSForrest [facility] Start: 82-72-5233Oikp bld gluc mntr dev cleared fda spec home useSterutherford regional health system WorldratCardinal Cushing Hospital Start: 69-73-5311Grohgdgfnxk analyte qual/semiqual multiple stepSterutherford regional health system WorldratCardinal Cushing Hospital Start: 08-06-2017 End: 55-46-1106Tjqkfd outpatient visit 15 minutesAijuanito Nagy Other [facility]: 70-51-5153Kdewi spine cervical 2 or 3 viewsZach WorldratCardinal Cushing Hospital Start: 69-07-6912Jrjrr spine lumbosacral 2/3 views Zach GrimaldoCardinal Cushing Hospital Start: 69-84-6291Ifapg spine thoracic 2 viewsZach GrimaldoCardinal Cushing Hospital Start: 31-50-1904Evfwglzwhxcus rate rbc automatedSternestina [facility] Start: 98-08-8122Vfjbaklvdx examination, unspecified Vahid [facility] start: 07-29-2017 End: 66-37-9014Kxelqfn encounter procedureVahid Nagy STUDENT COUNSELLOR Work Phone: [facility] Work Phone: Start: 69-66-6651Kquf bld gluc mntr dev cleared fda spec home useSteven DillanCardinal Cushing Hospital start: 07-29-2017 End: 61-52-3080Ozqehp outpatient visit 15 minutesChristoki Nagy Other [facility]: 02-15-2017 End: 21-51-8438Fzlveq outpatient visit 15 minutesLuelizabeth Azevedo Other [facility]: 39-12-2553Mrryt spine lumbosacral 2/3 viewsStshirley GrimaldoCardinal Cushing Hospital Start: 02-15-2017 End: 27-37-7970Sihbauz encounter procedureChristoki Nagy STUDENT COUNSELLOR Work Phone: [facility] Work Phone: start: 01-15-2017 End: 87-66-3653Fotfyyf encounter procedureConversion Provider Work Phone: [facility] Work Phone: start: 83-11-1628Iwmaehx use cessation intermediate 3- 10 minutesZach GrimaldoCardinal Cushing Hospital Start: 01-15-2017 End: 84-79-3799Bfspfz outpatient visit 15 minutesLuelizabeth Roberto Carlos Other [facility]: 12-14-2016 End: 71-77-5367Jatfwqr encounter procedureChristoki Nagy STUDENT COUNSELLOR Work Phone: [facility] Work Phone: start: 55-80-7079Nyxvabx use cessation intermediate 3- 10 minutesStshirley GrimaldoCardinal Cushing Hospital start: 12-14-2016 End: 68-46-9176Utircdjtmd HealthStshirley Grimaldo Other [facility]: 12-14-2016 Comprehensive metabolic panelSteven DillanCardinal Cushing Hospital start: 06-80-8087Ljnc bld gluc mntr dev cleared fda spec home useSjeane GrimaldoCardinal Cushing Hospital start: 97-45-1903Wjdhgmnxt c antibodyZach Grimaldo [facility] start: 12-14-2016 End: 13-57-8917Wklzsr outpatient visit 15 minutesLuke Roberto Carlos Other [facility]: 04-14-2015 End: 36-59-1737Ssnegih encounter procedureAijuanito Nagy CNP Work Phone: [facility] Work Phone: start: 04-14-2015 End: 29-15-9410Puaibtamry Hermelinda Grimaldo Other [facility]: 04-14-2015 End: 26-22-4610Haiqfq outpatient visit 15 minutesLuke Roberto Carlos Other [facility]: 03-11-2015 End: 40-02-7270Kdipogu encounter procedureAijuanito Nagy CNP Work Phone: [facility] Work Phone: start: 41-48-2048Rkyohlcvgepry metabolic panelSjeane [facility] start: 55-71-7643Ebln bld gluc mntr dev cleared fda spec home useSjeane GrimaldoCardinal Cushing Hospital start: 91-99-6290Jjbmsfluu, screeningZach Grimaldo [facility] start: 03-11-2015 End: 44-59-7895Yxhomq outpatient visit 15 minutesLuke Roberto Carlos Other [facility]: 02-10-2015 End: 61-09-4830Whzlrky encounter procedureConversion Provider Work Phone: [facility] Work Phone: start: 02-10-2015 End: 83-58-1321Hemjbjsgcx Hermelinda Grimaldo Other [facility]: 02-10-2015 Colonoscopy w/biopsy single/multipleSteven [facility] start: 35-87-8071Qicz bld gluc mntr dev cleared fda spec home useSteven [facility] start: 79-80-1503Lavpkggjp, screeningSteven [facility] start: 02-10-2015 End: 35-31-2956Quhtpw outpatient visit 15 minutesLuke Roberto Carlos Other [facility] Procedures DateProcedureProcedure DetailPerforming ClinicianStart: 52-02-5490Keeouciss serum plasma/whole bloodTaaggie Amado O AND M SUPERVISOR-STUDENT COUNSELLOR Work Phone: Start: 16-95-2199JLUNAPL GLUCOSENat Reynolds MD Work Phone: Start: 06-03-0931RAAPUKW GLUCOSENat Reynolds MD Work Phone: Start: 31-60-3980Bdbzazsbpovtl metabolic panelTaeler Aneudy O AND M SUPERVISOR-STUDENT COUNSELLOR Work Phone: Start: 57-49-5471RBWIY TUBESNat Reynolds MD Work Phone: Start: 77-85-4213GWSDK TUBES BLUE TOPNat Reynolds MD Work Phone: Start: 00-54-9395XCWBJHT GLUCOSENat Reynolds MD Work Phone: Start: 60-87-9658Lnbokxpup serum plasma/whole blood Nat Reynolds MD Work Phone: Start: 64-66-6883BOPJEKO Orion Reynolds MD Work Phone: Start: 74-71-5439Xepkdbqyv serum plasma/whole blood Taaggie Amado O AND M SUPERVISOR-STUDENT COUNSELLOR Work Phone: Start: 08-06-1042DUWAYCV Orion Reynolds MD Work Phone: Start: 54-64-2332Yockguccqysbf metabolic panelTaeler Aneudy O AND M SUPERVISOR-STUDENT COUNSELLOR Work Phone: Start: 25-13-1292UWNKN OXIMETRY, SPOTTaeler Amado O AND M SUPERVISOR-STUDENT COUNSELLOR Work Phone: Start: 49-51-4574JQKGHFM GLUCOSENat Reynolds MD Work Phone: Start: 32-89-2783AR EXTRA URINEAmber Pablo O AND M SUPERVISOR-STUDENT COUNSELLOR Work Phone: Start: 48-58-9144PH EXTRA URINE CULTUREAmber Pablo O AND M SUPERVISOR-STUDENT COUNSELLOR Work Phone: Start: 08-18-8632ZO EXTRA URINE MARBLEAmber Shah O AND M SUPERVISOR-STUDENT COUNSELLOR Work Phone: Start: 92-48-0333Xvvqs dip stick/tablet rgnt auto w/o microscopyShayne A Pizano DO Work Phone: Start: 16-84-7707Pq angiography chest w/contrast/noncontrastAmber Pablo O AND M SUPERVISOR-STUDENT COUNSELLOR Work Phone: Start: 27-80-0991Nkgql of troponin quantitativeAmber Pablo O AND M SUPERVISOR-STUDENT COUNSELLOR Work Phone: Start: 74-11-4759Rvaecgxdpu exam chest single view Kellen Pablo O AND M SUPERVISOR-STUDENT COUNSELLOR Work Phone: Start: 13-74-0269Iohsmkilprjgc metabolic panelAmber Pablo O AND M SUPERVISOR-STUDENT COUNSELLOR Work Phone: Start: 70-83-6459Wnmnrptp screenSTEFAN IACOBComment on above:Performed By: #### TSC ####[facility] ([address] [address] VIRStart: 59-13-6599Vmkrvyqpvj microscopic only Filomena Holli O AND M SUPERVISOR - STUDENT COUNSELLOR Work Phone: Start: 67-49-3113Kofyq dip stick/tablet rgnt auto w/o microscopyKrWest Valley Hospital Work Phone: Start: 26-37-5479As pelvis w/o contrast materialSummit Oaks Hospital Work Phone: Start: 92-03-3509Zunjcthtumbqt metabolic panelSummit Oaks Hospital Work Phone: Start: 11-19-2024 End: 08-48-9079Koykr foot complete minimum 3 viewsKrWest Valley Hospital Work Phone: Start: 45-27-8779Ogu bact xcpt urine blood/stool aerobic isolMegall Jose A Vishal [facility] Work Phone: Start: 15-64-4887VZWDT METABOLIC PANEL W/ REFLEX TO MG FOR LOW KShirley A [facility] Work Phone: Start: 93-79-9097Wolgy count complete auto&auto difrntl wbcShirley A [facility] Work Phone: Start: 41-32-9026CINPC METABOLIC PANEL W/ REFLEX TO MG FOR LOW KShirley A [facility] Work Phone: Start: 38-90-3764Gedfy count complete auto&auto difrntl wbcShirley A [facility] Work Phone: Start: 28-44-8958LETGV METABOLIC PANEL W/ REFLEX TO MG FOR LOW KShirley A [facility] Work Phone: Start: 36-08-8709Iojtk count reticulocyte automated Osmar Rodriguez MD Work Phone: Start: 78-56-7926TMTBACA B12 & FOLATEStdiego Rodriguez MD Work Phone: Start: 08-06-8256ONTDL METABOLIC PANEL W/ REFLEX TO MG FOR LOW KShirley A [place] O AND M SUPERVISOR - STUDENT COUNSELLOR Work Phone: Start: 02-98-9534Zwuet count complete auto&auto difrntl wbcShirley A Fabi O AND M SUPERVISOR - STUDENT COUNSELLOR Work Phone: Start: 69-23-1482ENGIP METABOLIC PANEL W/ REFLEX TO MG FOR LOW KShirley A Fabi O AND M SUPERVISOR - STUDENT COUNSELLOR Work Phone: Start: 31-71-3311Tkbst count complete auto&auto difrntl wbcShircristian Dunlap O AND M SUPERVISOR - STUDENT COUNSELLOR Work Phone: Start: 94-62-7018Nchwues bacterial blood aerobic w/id isolatesKelly Y Ariza PA-C Work Phone: Start: 08-12-2024 End: 28-20-6097Ttaxpngtkn examination foot 2 viewsKelly Y Ariza PA-C Work Phone: Start: 58-36-3022Kfbzj metabolic panel calcium total Ashley Y Ariza PA-C Work Phone: Start: 78-47-9900W-reactive proteinKelly Y Ariza PA-C Work Phone: Start: 40-65-8133GUSMKWR, BLOOD 1Kelly Y Ariza PA-C Work Phone: Start: 44-14-3414ASYVQ METABOLIC PANEL W/ REFLEX TO MG FOR LOW KShirley Ariana Dunlap O AND M SUPERVISOR - STUDENT COUNSELLOR Work Phone: Start: 28-39-6628Tnuss count complete auto&auto difrntl wbcShircristian Dunlap O AND M SUPERVISOR - STUDENT COUNSELLOR Work Phone: Start: 85-97-7243NTFVK METABOLIC PANEL W/ REFLEX TO MG FOR LOW KShirley Ariana Dunlap O AND M SUPERVISOR - STUDENT COUNSELLOR Work Phone: Start: 60-91-0237Vwmwd count complete auto&auto difrntl wbcShircristian Dunlap O AND M SUPERVISOR - STUDENT COUNSELLOR Work Phone: Start: 14-86-8773Gepxumd function panelShircristian ConnerLutheran Medical Center - [facility] Work Phone: Start: 98-17-1619RZVKQ METABOLIC PANEL W/ REFLEX TO MG FOR LOW KShircristian PeterHoly Cross Hospital - [facility] Work Phone: Start: 13-79-0402Vacyu count complete auto&auto difrntl wbcOliva Lane [facility] Work Phone: Start: 56-99-5540Yhp-scan lxtr art/artl bpgs compl bi studyBhumimorteza Adorno Rodrigo DPM Work Phone: Start: 33-71-9551KNDES METABOLIC PANEL W/ REFLEX TO MG FOR LOW Ethan TristanUniversity of [facility] Work Phone: Start: 09-87-3326Yxxfn count complete auto&auto difrntl wbcOliva Lane [facility] Work Phone: Start: 32-50-2680Ujepuzr bacterial blood aerobic w/id isolatesShaida Lane [facility] Work Phone: Start: 68-90-4129Itdzfnamhu glycosylated s9rZgryiurOliva PeterMidwest Orthopedic [facility]ty Hospital Work Phone: Start: 18-11-8808GOXWMMK, SEPSISShircristian Lane [facility] Work Phone: Start: 08-06-2024 End: 64-03-2047At lower extremity w/contrast materialSalisha Lane [facility] Work Phone: Start: 22-90-6883Mi thorax w/contrast materialSabiliorcristian Lane [facility] Work Phone: Start: 73-27-4223Ru head/brain w/o contrast material Oliva Ariana [facility] Work Phone: Start: 29-47-1607Jad routine ecg w/least 12 lds i&r onlyOliva Dunlap O AND M SUPERVISOR - STUDENT COUNSELLOR Work Phone: Start: 37-22-2524Ume prim src gram/giemsa stain bct fungi/cellSalisha Dunlap O AND M SUPERVISOR - STUDENT COUNSELLOR Work Phone: Start: 80-99-0730Ldcbn count complete auto&auto difrntl wbcOliva Dunlap O AND M SUPERVISOR - [facility] Work Phone: Start: 62-61-4043JKLMNJJ, BLOOD 1Shiberhane Bales [facility] mobileo [facility] Work Phone: Start: 92-69-7042Ghyyu depression screening assessment Rebeca Johnson MD Work Phone: Start: 27-89-3625Lnogcz scan of lower limb veinsDO Carlo Grimaldo Work Phone: Start: 13-97-3424Lnkbyxdr tomography of abdomen and pelvis with contrastDO Carlo Grimaldo Work Phone: Start: 05-05-7155ZC angiography of thoraxDO Carlo Grimaldo Work Phone: Start: 35-53-9296Rowuy chest X-rayDO Carlo Grimaldo Work Phone: Start: 11-22-7038Qcadzwzsuwo Panel (PCR)DO Carlo Grimaldo Work Phone: Start: 04-33-2835Otaov Occult Blood (JESS)DO Carlo Grimaldo Work Phone: Start: 94-40-1714XszoweslmluCarzul Iacob MD Work Phone: Start: 67-56-3448Ffugx depression screening assessment Irena Vallejo CMAStart: 47-07-2407Tocbsceindyke metabolic panelSmaria elena Rodriguez MD Work Phone: Start: 82-47-3017Pqtjl albumin quantitativeStdiego Rodriguez MD Work Phone: Start: 07-26-2022 End: 75-87-5571Yqtmz panelSmaria elena Rodriguez MD Work Phone: Start: 07-26-2022 End: 67-19-3721Ejpczzzgltnyy metabolic panelSmaria elena Rodriguez MD Work Phone: Start: 53-79-3647Kybffzbcdmwt [Mass/volume] in Urine by Test stripCatterry Vargas MAStart: 07-21-2022 End: 75-73-3659Fbabu spine lumbosacral 2/3 viewsOlgaian Diego THORNE Work Phone: Start: 44-70-0607Vgv any jt lower extrem w/o contrast matrlSmaria elena Rodriguez MD Work Phone: Start: 78-15-9640Iu abdomen & pelvis w/contrast Naren Rodriguez MD Work Phone: Start: 70-38-7313Tkprblttzv bloodStdiego Rodriguez MD Work Phone: Start: 07-19-2021 End: 64-13-4193EFC W/ ULTRASOUNDSadenise Pickett MD Work Phone: Start: 78-92-3367Xerlntp measurement, bloodPedrito Pickett MD Work Phone: Start: 14-99-2787OQNUVZWEBF ENDOSCOPICStephanie A Adelina O AND M SUPERVISOR-STUDENT COUNSELLOR Work Phone: Start: 65-47-6077Ydugjcj measurement, bloodPedrito Pickett MD Work Phone: Start: 47-60-0750Iv abdomen & pelvis w/contrast Naren Rodriguez MD Work Phone: Start: 60-18-3439Uccdz count complete auto&auto difrntl wbcStdiego Rodriguez MD Work Phone: Start: 65-15-2335Wqbap hip unilateral with pelvis 2-3 viewsStdiego Rodriguez MD Work Phone: Start: 90-24-9392VMXUZ METABOLIC PANEL W/ REFLEX TO MG FOR LOW KShirley A [place] O AND M SUPERVISOR - STUDENT COUNSELLOR Work Phone: Start: 03-16-6146Pupki count complete auto&auto difrntl wbcOliva Tristan O AND M SUPERVISOR - STUDENT COUNSELLOR Work Phone: Start: 68-37-7210SNCAM METABOLIC PANEL W/ REFLEX TO MG FOR LOW Ethan Tristan O AND M SUPERVISOR - STUDENT COUNSELLOR Work Phone: Start: 43-07-8995Clbsg count complete auto&auto difrntl wbcOliva Tristan O AND M SUPERVISOR - STUDENT COUNSELLOR Work Phone: Start: 12-23-6097Jzlahmilfj exam chest 2 viewsOliva Tristan O AND M SUPERVISOR - STUDENT COUNSELLOR Work Phone: Start: 22-10-4716EOZQBNC, BLOOD 1Shircristian Tristan O AND M SUPERVISOR - STUDENT COUNSELLOR Work Phone: Start: 85-46-8785QTIOR-19, RAPIDShircristian Tristan O AND M SUPERVISOR - STUDENT COUNSELLOR Work Phone: Start: 25-87-1521Ni thorax w/contrast materialJoshua Grund O AND M SUPERVISOR - STUDENT COUNSELLOR Work Phone: Start: 53-74-9881Wjeaplyjze microscopic onlyOliva Tristan O AND M SUPERVISOR - STUDENT COUNSELLOR Work Phone: Start: 1959Cqjhw dip stick/tablet rgnt auto w/o microscopyOliva Tristan O AND M SUPERVISOR - STUDENT COUNSELLOR Work Phone: Start: 53-79-9820FYYEGQY, SEPSISJoshua Baciliound O AND M SUPERVISOR - STUDENT COUNSELLOR Work Phone: Start: 78-35-4084Rbo-scan xtr veins complete bilateral studyJoshua Grund O AND M SUPERVISOR - STUDENT COUNSELLOR Work Phone: Start: 70-67-5414Ofuax metabolic panel calcium total Harish Sebastian DO Work Phone: Start: 24-76-2866HVMKX TO COMPREHENSIVE UPGRADE Harish Sebastian DO Work Phone: Start: 42-50-3222P-reactive proteinJoshua Analilia O AND M SUPERVISOR - STUDENT COUNSELLOR Work Phone: Start: 13-07-6045Iczzqpbvlk exam chest single view Harish Sebastian DO Work Phone: Start: 37-60-2224Mcf routine ecg w/least 12 lds i&r onlyAlexaconsuelo Sebastian DO Work Phone: Start: 02-09-2021 End: 87-82-1507Mxgtm sacrum & coccyx minimum 2 viewsStevernestina Marie Sahra PA-C Work Phone: Start: 46-95-5961Gbaiiqrjda exam chest single view Zach Marie Sahra PA-C Work Phone: Start: 42-92-3729Xr cervical spine w/o contrast materialSteven D Sahra PA-C Work Phone: Start: 17-91-2776Mg head/brain w/o contrast material Zach Marie Sahra PA-C Work Phone: Start: 35-29-1346Bhriwwvirdx timeSteven D Sahra PA-C Work Phone: Start: 19-36-2262Qbs routine ecg w/least 12 lds w/i&r Zach Marie Sahra PA-C Work Phone: Start: 33-33-3402Qq abdomen & pelvis w/o contrast materialChristina R Munoz DO Work Phone: Start: 60-09-0219Vxibt of lactateChristina R Munoz DO Work Phone: Start: 69-37-3214WMOJR-19, RAPIDChristina R Munoz DO Work Phone: Start: 44-55-5666Jbz routine ecg w/least 12 lds w/i&r Albert Andes DO Work Phone: Start: 57-76-5865Ymsdm of magnesiumJustin Andes DO Work Phone: Start: 39-85-2970BABID METABOLIC PANEL W/ REFLEX TO MG FOR LOW KJustin Andes DO Work Phone: Start: 01-12-2021 End: 08-65-2184Imyft spine thoracic 2 viewsJustin Andes DO Work Phone: Start: 71-26-9236Kewyygxscf exam chest single view Albert Andes DO Work Phone: Start: 61-76-2919Aw head/brain w/o contrast material Albert Andes DO Work Phone: Start: 21-60-7179Bjqezqssxo microscopic onlyMukesh Marley MD Work Phone: Start: 74-20-9351Gmhft dip stick/tablet rgnt auto w/o microscopyMukesh Marley MD Work Phone: Start: 06-69-6715Jj abdomen & pelvis w/contrast materialMukesh Marley MD Work Phone: Start: 56-97-5243Fqloxaliksqyg metabolic panelMukesh Marley MD Work Phone: Start: 29-43-6250Tmiwxiw tobacco smokerAijuanito Nagy Work Phone: Start: 76-31-1929Knpi bld gluc mntr dev cleared fda spec home useAimeki Nagy Work Phone: Start: 18-40-0298Xizpswjowx glycosylated k3jAqwtg Cotten Work Phone: Start: 27-79-2072Opcglqjetrxch w/patient 30 minutes Leah Short Work Phone: Start: 89-63-3676Zp lumbar spine w/o contrast material Marita Munoz Work Phone: Start: 08-60-1391Wh thoracic spine w/o contrast materialMarita Munoz Work Phone: Start: 91-71-4948Qfdku of troponin quantitativeFredy Billingsley Work Phone: Start: 88-65-7193Xvcbd of troponin quantitativeFredy Billingsley Work Phone: Start: 15-63-4172Fkagm count complete auto&auto difrntl wbcJosallie Billingsley Work Phone: Start: 67-78-5037Wvftlgntatl peptideJosallie Billingsley Work Phone: Start: 90-89-6888Wbhamqzbnyr timeJosallie Billingsley Work Phone: Start: 70-15-8030Ghsmecnteqvrr rate rbc automated Frdey Billingsley Work Phone: Start: 49-09-4646Cxjsfesfojazsz time partial plasma/whole bloodFredy Billingsley Work Phone: Start: 59-76-8085Aivpfsxnhh exam chest 2 viewsFredy Billingsley Work Phone: Start: 17-98-1503Rorrr hip unilateral with pelvis 2-3 viewsFredy Billingsley Work Phone: Start: 55-96-6104Lkp routine ecg w/least 12 lds w/i&r Deion Loaiza Work Phone: start: 95-87-5583Jdvokvo blood reagent stripCarraway [facility] Work Phone: Start: 43-51-4353Fmclqmm blood reagent stripCarraway Methodist Medical Center Work Phone: Start: 13-98-4851Yrvxn count complete auto&auto difrntl wbcMa'En Al-Dabbas Work Phone: Start: 91-74-1944Cezvo count complete automatedMa'En Al-Dabbas Work Phone: Start: 06-02-3012Xdstgzl blood reagent stripKingman [facility] Cent[facility] Work Phone: Start: 41-18-3339Sehrgvc blood reagent stripKingman [facility] Work Phone: Start: 16-23-3700ZMPZ LAB REPORTHpf ScanningStart: 78-99-8461Tkzpnewxvensmoy and angiography procedure details panelHemrd Martinez Work Phone: Start: 13-31-2260JGYAZ METABOLIC PANEL W/ REFLEX TO MG FOR LOW Lei F O Ahmad Work Phone: Start: 15-63-3605Prpbc count complete automatedAli F O Ahmad Work Phone: Start: 76-88-5381Pzfvi of troponin quantitativeAli F O Ahmad Work Phone: Start: 59-88-6053Xaeyw of troponin quantitativeAli F O Ahmad Work Phone: Start: 57-50-9725Qpmzppgdekdsgyb and angiography procedure details Warren Stephens Work Phone: Start: 66-76-5489Dhatkngfkm exam chest single view Gilberts Fatuma Work Phone: Start: 35-28-6042Cuj routine ecg w/least 12 lds w/i&r Gilberts Fatuma Work Phone: Start: 77-33-8626Ymehe of troponin quantitativePage [facility] Work Phone: Start: 62-81-9517Kvndb count complete automatedPage [facility] Hospital Work Phone: Start: 88-98-4856Fypygpukkediz metabolic panelPage Memorial Hospital Work Phone: Start: 37-45-2765Pekavycbdas peptidePage Memorial Hospital Work Phone: Start: 40-25-5121Clemhdcopu exam chest single viewEtan E Eitches Work Phone: Start: 07-28-8092Rdiae of troponin quantitativeEtan E Eitches Work Phone: Start: 84-60-8140Erfcz metabolic panel calcium total Mukesh E Eitches Work Phone: Start: 27-29-2099Uobut count complete auto&auto difrntl wbcEtan E Eitches Work Phone: Start: 13-83-3137Vznzlcmedhg peptideEtan E Ayaka Work Phone: Start: 97-26-0469Nya routine ecg w/least 12 lds w/i&r Mukesh E Ayaka Work Phone: Start: 62-44-7695Jyktw hips bilateral with pelvis 3-4 viewsDeion Loaiza Work Phone: start: 64-31-7861Egtxywhkoz microscopic onlyDeion Loaiza Work Phone: start: 97-89-8589Hjwii dip stick/tablet rgnt auto w/o microscopyDeion Loaiza Work Phone: start: 19-79-0106Yqgjhws tobacco smokerVahid Nagy Work Phone: Start: 96-27-0733Irtwd bp <80 mm hgjuanito Nagy Work Phone: Start: 13-78-2826Yrib test prsmv read direct optical obs pr dateVahid Nagy Work Phone: Start: 77-54-3028Xjbwgdqezjytv w/patient 30 minutes Leah Short Work Phone: Start: 45-11-0589Xz tobacco screen rcvd tlkAjoelle Nagy Work Phone: Start: 80-44-2274Ptks bp lt 130 mm hgjuanito Nagy Work Phone: Start: 24-51-9230Jtzxt of thyroid stimulating hormone tshVahid Nagy Work Phone: Start: 05-09-5921Ifxxg count complete auto&auto difrntl wbcAijuanito Nagy Work Phone: Start: 42-11-4831Rprxjyejvtscq metabolic panelVahid Nagy Work Phone: Start: 28-84-0121Nhknt panelVahid Nagy Work Phone: Start: 87-96-9883Ydbemqvuff microscopic onlyAimee M Angelita Work Phone: Start: 12-21-5125Fkakd dip stick/tablet rgnt auto w/o microscopyAijuanito Nagy Work Phone: Start: 04-32-3471Ohnb bld gluc mntr dev cleared fda spec home useAimeki Nagy Work Phone: Start: 45-73-4970Ehsws dip stick/tablet rgnt non-auto w/o micrscpAimee Angelita Work Phone: Start: 96-25-2191Wtytw bp 80-89 mm hgShawna Holliday Work Phone: start: 16-86-1983Ccwxahmvxdhrp w/patient 30 minutes Nitza Mark Work Phone: Start: 55-85-5534Aa tobacco screen rcvd tlkKara Mg Work Phone: Start: 78-98-8440Jxni bp ge 130 - 139mm hgShawna Holliday Work Phone: Start: 52-43-6618Ububm of troponin quantitativeSyed A Cityblis Work Phone: Start: 97-48-2737Wxrzg of lipaseSyed A Cityblis Work Phone: Start: 90-01-9591Uofdq of troponin quantitativeSyed A Fish Work Phone: Start: 36-68-1146Ibaqgeygrntsj metabolic panelSyed A Fish Work Phone: Start: 49-89-1637Baxbepczpy exam chest 2 viewsSyed A Fish Work Phone: Start: 79-52-7828Hz head/brain w/o contrast material Wesly A [place] Work Phone: Start: 02-71-0319Bqjzg of ammoniaSyed A Cityblis Work Phone: Start: 74-34-5795Vmrog count complete auto&auto difrntl wbcSyed A Fish Work Phone: Start: 88-53-1311QDNRCTJF REJECTIONSyed A Fish Work Phone: Start: 31-85-4503Bk thorax w/contrast materialMichael L FitzpatrickStart: 60-61-3747Xnkxr dip stick/tablet reagent auto microscopy Nia Naranjo FithillarypatrickStart: 54-89-0432ODRQA GAS, ARTERIALMichael L Carey Start: 44-23-6065BJDHB-19Michael L FitzpatrickStart: 66-19-1867Gmc routine ecg w/least 12 lds w/i&rMichael L FitzpatrickStart: 77-81-8099Ezafjttlwz exam chest single viewMichael L FitzpatrickStart: 93-33-7872Ctpja of troponin quantitative Nia Naranjo MohanpatrickStart: 34-92-2546Ofkty metabolic panel calcium totalMichael L FitzpatrickStart: 09-11-5640Hoqhr count complete auto&auto difrntl wbcMichael L FitzpatrickStart: 98-20-4187Wnsjja dgradj products d-dimer quantitative Nia Naranjo MohanpatrickStart: 17-49-4135MXDTOHN, SEPSISMichael L FitzpatrickStart: 37-40-1764Wtlqbgbhhlr peptideMichael L FitzpatrickStart: 08-30-8151OQDMQLOFTM CARBON MONOXIDEMichael L FitzpatrickStart: 40-83-3964AAPZP-19Luis E Bobby Work Phone: Start: 43-23-0725Slpctmr tobacco smokerShawna Holliday Work Phone: Start: 91-67-2390Gyzdw bp <80 mm hgShawna Holliday Work Phone: Start: 53-22-9191Zutt bld gluc mntr dev cleared fda spec home useShawna Holliday Work Phone: Start: 21-52-9607Pvfbyvcifp glycosylated o3pLkyfShawna Holliday Work Phone: Start: 95-14-7001Lbbefbgudmhro w/patient 30 minutes Leah Short Work Phone: start: 45-77-8442Gp tobacco screen rcvd tlJesusita Holliday Work Phone: Start: 67-19-8450Rgtr bp lt 130 mm hgShawna Holliday Work Phone: Start: 76-18-1908Lxtzr metabolic panel calcium total Ali F O Ahmad Work Phone: Start: 15-51-2547Dwlrs count complete automatedAli F O Ahmad Work Phone: Start: 00-05-5036XQDUF-19Luis E Bobby Work Phone: Start: 13-40-0156Hfynwwunfcziy w/patient 30 minutes Leah Short Work Phone: Start: 79-66-4909Btnm tthrc r-t 2d w/wom-mode compl spec&colr Claire F O Ahmad Work Phone: Start: 17-09-2930Yhinxcijedcmr w/patient 30 minutes Leah Short Work Phone: start: 05-98-4941Yugjbal blood reagent stripJames A Deb Work Phone: Start: 52-17-8613Axeuhwl blood reagent stripJames A Deb Work Phone: Start: 06-89-8273Yfdxt of magnesiumEbere Harish Work Phone: Start: 58-10-0911GETYH METABOLIC PANEL W/ REFLEX TO MG FOR LOW KEbere Harish Work Phone: Start: 82-94-2747Yxemnqf blood reagent stripJames A Deb Work Phone: Start: 99-49-5412Lihcbch blood reagent stripJames A Edb Work Phone: Start: 25-30-3716Mfthahd blood reagent stripJames A Deb Work Phone: start: 21-10-4570Cfgtphq blood reagent stripJames A Deb Work Phone: Start: 59-24-4047Zywqk count complete auto&auto difrntl wbcEbere Harish Work Phone: Start: 64-96-8766Lajlwdt blood reagent stripJames A Deb Work Phone: Start: 07-88-7886Skpbouj blood reagent stripJames A Deb Work Phone: Start: 52-84-1849Mimpjuj blood reagent stripJames A Deb Work Phone: start: 07-84-7366OZQDW METABOLIC PANEL W/ REFLEX TO MG FOR LOW KSrinivas Antonio Work Phone: Start: 79-67-6703Ewgiuyx blood reagent stripJames A Deb Work Phone: Start: 66-25-5614Rgvmswj blood reagent stripJames A Deb Work Phone: Start: 47-19-0057PFQQUTIBSZFueocjag Antonio Work Phone: start: 58-64-9194Ibiuovx blood reagent stripJames A Deb Work Phone: start: 51-84-0612CXCMM METABOLIC PANEL W/ REFLEX TO MG FOR LOW KSrinivas Antonio Work Phone: Start: 91-20-7859Wuoqz count complete auto&auto difrntl wbcSrinivas Antonio Work Phone: Start: 50-34-4183Plibndo blood reagent stripJames A Deb Work Phone: start: 61-20-0182Xwasriu blood reagent stripJames A Deb Work Phone: start: 58-59-3724Ehtpr count hemoglobinRathnavali Antonio Work Phone: Start: 12-83-6690Ciepyhf blood reagent stripJames A Deb Work Phone: start: 98-50-6424Vuhymhl blood reagent stripJames A Deb Work Phone: Start: 41-10-8596SGTPO METABOLIC PANEL W/ REFLEX TO MG FOR LOW KJames A Deb Work Phone: Start: 48-99-8555Tzloc count complete auto&auto difrntl wbcJames A Deb Work Phone: Start: 02-19-5472Sfburwb blood reagent stripJames A Deb Work Phone: Start: 54-68-2502Styhtdi blood reagent stripJames A Deb Work Phone: Start: 54-28-2895Hewlkvz blood reagent stripJames A Deb Work Phone: Start: 73-19-6201Vyz routine ecg w/least 12 lds i&r onlyAstrid Ross Work Phone: Start: 26-30-6647JXS REPORTHpf ScanningStart: 36-22-2560Xsoqjox blood reagent stripJames A Deb Work Phone: Start: 02-42-4193Vcmtncje mycoplsmRathnavali Antonio Work Phone: Start: 03-35-3162Jrppn s aureus methicillin resist amp probe tqLuis E Bobby Work Phone: Start: 00-80-3656Hagckst blood reagent stripJames A Deb Work Phone: Start: 80-49-9957Wxhuv of triglyceridesRatika Aryan Work Phone: Start: 10-08-2008TIYBU METABOLIC PANEL W/ REFLEX TO MG FOR LOW KJames A Deb Work Phone: Start: 12-92-9862Uumvj count complete auto&auto difrntl wbcJames A Deb Work Phone: Start: 73-85-8850Gjpiomh blood reagent stripJames A Deb Work Phone: Start: 46-90-6593Bsxfxtp blood reagent stripJames A Deb Work Phone: Start: 51-20-4831Hmrlgec blood reagent stripJames A Deb Work Phone: Start: 58-72-1632Mzngh respiratry probe & rev trnscr 12-25 targetVinod Kim Work Phone: Start: 19-04-5437JLHNG-19Vinod Kim Work Phone: Start: 54-70-7803Uos routine ecg w/least 12 lds i&r onlyRatika Aryan Work Phone: Start: 37-79-3286EMC REPORTHpf ScanningStart: 58-80-8123Ivnzf of lactateJames A Deb Work Phone: Start: 56-76-6611Mrwhb of thyroid stimulating hormone tshJames A Deb Work Phone: Start: 61-74-2576ZDIMZ METABOLIC PANEL W/ REFLEX TO MG FOR LOW KJames A Deb Work Phone: Start: 29-49-5022Knskd count complete auto&auto difrntl wbcJames A Deb Work Phone: Start: 06-86-5573R-reactive proteinJames A Deb Work Phone: Start: 16-68-9744Dccnbtb blood reagent stripJames A Deb Work Phone: Start: 58-99-0985Cvtcshh blood reagent stripJames A Deb Work Phone: Start: 07-74-1272Eutjqtkkhw microscopic onlyRatika Aryan Work Phone: Start: 90-64-5380Vleal dip stick/tablet rgnt auto w/o microscopyRatika Aryan Work Phone: Start: 38-93-8315Ibgozch blood reagent stripJames A Deb Work Phone: Start: 87-61-9959TCGHGER, BLOOD 1Ratika Aryan Work Phone: Start: 94-89-7758Zhdrvwucrj exam abdomen 1 viewBrendan Hum Work Phone: Start: 37-26-2125Giecqwf blood reagent stripJajordan Lane Deb Work Phone: Start: 92-36-3542Nxadichhpp exam chest single view Ratidemarcus Aryan Work Phone: [phone]: 01-85-6576AKQAWPUA BLOOD GAS, POCJajordan A Deb Work Phone: Start: 99-98-8942Qjpt bld gluc mntr dev cleared fda spec home useJames A Deb Work Phone: Start: 42-99-8150Kjaijni bacterial blood aerobic w/id isolatesRatika Aryan Work Phone: Start: 15-77-9444Htbxa of ferritinRatika Aryan Work Phone: Start: 28-75-8695Qbwsr of magnesiumRatika Aryan Work Phone: Start: 05-19-1392Caxwk of troponin quantitativeRatika Aryan Work Phone: [phone]: 66-20-2585XBIGO METABOLIC PANEL W/ REFLEX TO MG FOR LOW KRatika Aryan Work Phone: Start: 16-86-8094Sjeovlt ionizedRatika Aryan Work Phone: Start: 64-80-1680Ziezun bodies serum quantitative Ratika Aryan Work Phone: Start: 91-39-6253Dsnrmaz dehydrogenase ldhRatika Aryan Work Phone: [phone]: 82-44-7583MKWKOHYV BLOOD GAS, POCJajordan A Deb Work Phone: Start: 95-59-0034Asvx bld gluc mntr dev cleared fda spec home useJajordan A Deb Work Phone: Start: 16-56-9459MRBNHCRYMLAvqjho Aryan Work Phone: Start: 06-28-3673JACIK GAP (CALC) POCChago Boyd Work Phone: Start: 01-21-4404Ucoyp count hemoglobinJajordan Lane Deb Work Phone: Start: 85-03-9728EPJAPUF, IONIC (POC)Chago Lane Deb Work Phone: Start: 63-25-7723Isooqvph [Moles/Vol]Chago Lane Deb Work Phone: Start: 13-38-9964TIBTUKYMFJ W/GFR POINT OF CAREChago Cherrya Work Phone: Start: 03-01-8383Xovj bld gluc mntr dev cleared fda spec home useChago Lane Deb Work Phone: Start: 31-03-6158RRGPJV ACID,POINT OF CAREChago A Deb Work Phone: Start: 21-35-9058RVHEN VENOUS GAS, POINT OF CAREChago Lane Deb Work Phone: Start: 86-65-6252BPRKSLTGTCIF PANEL, POCChago Lane Deb Work Phone: Start: 65-82-1318Mwifmgwuj [Moles/Vol]Chago Lane Deb Work Phone: Start: 72-51-3287Ynymkm [Moles/Vol]Chago Lane Deb Work Phone: Start: 14-40-7337Puqqa s aureus methicillin resist amp probe tqLuis E Bobby Work Phone: Start: 98-21-2255Zshq ia mult step method nos each organismRatika Aryan Work Phone: Start: 44-92-2505QTWOQ PNEUMONIAE ANTIGENRatika Aryan Work Phone: Start: 41-74-8777Erxtmgd blood reagent stripChago Lane Deb Work Phone: Start: 94-15-6472NBKDURRILSJ CARE EVALUATION ONLY Ratika Aryan Work Phone: Start: 01-95-2740Ye thorax w/contrast materialSyed A Fsih Work Phone: Start: 93-19-6612Cjbt screen class list aTyler [employer] Work Phone: Start: 78-85-5554Oficaovrvh microscopic onlyTyler [employer] Work Phone: Start: 44-38-7765Hdzro dip stick/tablet rgnt auto w/o microscopyTyler [employer] Pharm[employer] Work Phone: Start: 65-57-1539Mwuuv of ammoniaTyler [employer] Pharmaceuticals Work Phone: Start: 30-35-3167OBGPON/HUMIDIFIED HIGH FLOW NASAL CANNULASyed A Fish Work Phone: Start: 21-55-4179Vnf routine ecg w/least 12 lds w/i&r Luis [employer] Work Phone: Start: 94-11-5268Dofnhculqc exam chest single view Luis [employer] Work Phone: Start: 28-02-7091XWNJY GAS, ARTERIALTyler [employer] Work Phone: Start: 75-45-4578Ju head/brain w/o contrast material Luis [employer] Work Phone: Start: 70-29-9611Pzgbg of ethanolTyler Arena Pharm[employer] Work Phone: Start: 32-43-1042Sjwjj of troponin quantitativeTyler [employer] Work Phone: Start: 11-24-0020Cyxee count complete auto&auto difrntl wbcTyler [employer] Work Phone: Start: 55-44-3262Amxellkc kinase totalTyler [employer] Work Phone: Start: 15-96-8167Drixiv dgradj products d-dimer quantitativeTyler [employer] Work Phone: Start: 05-78-1701Qvriyncwoug peptideTyler [employer] Work Phone: Start: 16-15-3607Ygjrfoxhhyo timeTyler [employer] Work Phone: Start: 45-90-2061Sxhahuy gave verbal consent for telehealthjuanito Rowlandtart: 98-66-6654MPGDR CANNULA OXYGENEtan E Eicas Work Phone: Start: 38-95-4777Gcwlm of troponin quantitativeWiadalidwinter Foley Work Phone: Start: 96-09-1475Wydoc count complete auto&auto difrntl wbcWisuryarashida Foley Work Phone: Start: 27-64-1551Knrddubeehxbo metabolic panelWisuryarashida Foley Work Phone: Start: 58-73-8394Mig routine ecg w/least 12 lds w/i&r Ab Ariana Foley Work Phone: Start: 32-67-9635Qaegi hand minimum 3 viewsTyler Emily Work Phone: Start: 60-36-9089Nznae bp 80-89 mm hgVahid Nagy Work Phone: Start: 69-14-6275Ef tobacco screen rcvd tlkAjoelle Nagy Work Phone: Start: 72-22-5075Aduz bp >/= 140 mm hgVahid Nagy Work Phone: Start: 85-31-6018JLSEMEI, WHOLE BLOODMark Albert De Santiago MD Work Phone: Start: 80-31-1197CSIJJQE, WHOLE BLOODMark Albert De Santiago MD Work Phone: Start: 46-01-3111Tjbxy metabolic panel calcium total Ziggy Smith MD Work Phone: Start: 47-95-4989KIEPFOO, WHOLE BLOODMark Albert De Snatiago MD Work Phone: Start: 17-75-3673QWIQPTL, WHOLE BLOODMark Albert De Santiago MD Work Phone: Start: 34-20-2921Qhepj s aureus methicillin resist amp probe tqMark Albert De Santiago MD Work Phone: start: 53-05-6340GROTLWL, WHOLE BLOODMark Albert De Santiago MD Work Phone: Start: 71-11-6004BRPDLYU, WHOLE BLOODMark Albert De Santiago MD Work Phone: Start: 87-22-8514Qcwcd metabolic panel calcium total Ziggy Smith MD Work Phone: Start: 04-99-9892QZAWPDB, WHOLE BLOODMark Albert De Santiago MD Work Phone: Start: 71-52-3810MODTEGA, WHOLE BLOODMark Albert De Santiago MD Work Phone: Start: 84-79-9122ETIXHSF, WHOLE BLOODMark Albert De Santiago MD Work Phone: Start: 12-45-5665Aehut metabolic panel calcium total Ziggy Smith MD Work Phone: Start: 19-09-0619LNJCFLX, WHOLE BLOODMark Albert De Santiago MD Work Phone: Start: 80-96-7999CZVKI GAS, ARTERIALChristopher Cynthia Smith MD Work Phone: Start: 38-68-6074Etjxp of lactateOliva Tristan O AND M SUPERVISOR - STUDENT COUNSELLOR Work Phone: Start: 84-37-9039UUVIENW, WHOLE BLOODMark Albert De Santiago MD Work Phone: Start: 04-22-2019 End: 25-26-6232BDRPU GAS, ARTERIALChristopher Cynthia Smith MD Work Phone: Start: 68-71-7707Baoqgddnkdzct metabolic panelMark Albert De Santiago MD Work Phone: Start: 06-36-9649Yflltcz bacterial quanttative colony count urineSyaj Whitten MD Work Phone: Start: 38-31-9610Hawzw dip stick/tablet rgnt auto w/o microscopySyaj Whitten MD Work Phone: Start: 74-11-1359GXT CLINICAL BEDSIDE SWALLOW EVALUATION & TREATMENTMark Albert De Santiago MD Work Phone: Start: 65-33-7904Zjqfwus bacterial blood aerobic w/id isolatesSyed Ariana Whitten MD Work Phone: Start: 89-85-7464Vg thorax w/contrast materialJustin Andes DO Work Phone: Start: 83-48-9140FHOGS METABOLIC PANEL W/ REFLEX TO MG FOR LOW KJustin Andes DO Work Phone: Start: 63-24-7557Cokjmpp bacterial blood aerobic w/id isolatesSyed Ariana Whitten MD Work Phone: Start: 22-59-5223Jdvdgxm function panelSyed Ariana Whitten MD Work Phone: Start: 65-15-1356Ourlhma [Moles/volume] in Serum or PlasmaJustin Andes DO Work Phone: Start: 04-25-3143Wlwxemfjnln timeSyed Ariana Whitten MD Work Phone: Start: 44-41-2603Vcxextsxmo exam chest 2 viewsJustin Andes DO Work Phone: Start: 80-01-9666Tvggn bp >/= 90 mm hgAijuanito Nagy Work Phone: start: 72-39-3367Lkzc test prsmv read direct optical obs pr dateVahid Nagy Work Phone: Start: 04-69-0255Opuchybcnvqum w/patient 30 minutes Zach Grimaldo Work Phone: Start: 94-45-3865Hhix bp lt 130 mm hgAijuanito Nagy Work Phone: start: 24-62-4932Jo head/brain w/o contrast material Harish Sebastian DO Work Phone: Start: 46-89-5341Kf angiography neck w/contrast/noncontrastAlexseth Sebastian DO Work Phone: Start: 26-86-8034Crlvm of troponin quantitative Harish Sebastian DO Work Phone: Start: 27-71-7705KGCLU METABOLIC PANEL W/ REFLEX TO MG FOR LOW KAlexander Ariana Oz Sonotektaran DO Work Phone: Start: 82-76-2748Euo routine ecg w/least 12 lds w/i&r Harish Sebastian DO Work Phone: Start: 04-12-2019 End: 79-40-0938Adwds spine cervical 2 or 3 viewsAlexander Ariana Oz SonotekjanieSecondLeap DO Work Phone: Start: 19-69-6080Ntkzp bp >/= 90 mm hgAimee Angelita Work Phone: start: 34-82-8355Ufwm bp >/= 140 mm hgAimee Flirq Work Phone: start: 62-45-8182Lwnhs bp 80-89 mm hgCassie King Work Phone: Start: 72-36-9835Yybm bp ge 130 - 139mm hgCassie King Work Phone: start: 84-90-1499Vishe dip stick/tablet reagent auto microscopyMichael Oertly Work Phone: Start: 44-88-2033Qge abdl aorta&bi iliofem w/contrast&postpMichael Oertly Work Phone: Start: 49-16-1580Yftte of lipaseMichael Oertly Work Phone: Start: 18-09-4675Oozsy of troponin quantitativeMichael Oertly Work Phone: Start: 88-14-6874Jpdwb count complete auto&auto difrntl wbcMichael Oertly Work Phone: Start: 67-95-2025Jpojpeiffgipp metabolic panelMichael Oertly Work Phone: Start: 06-27-8695Fjaledetkaa timeMichael Oertly Work Phone: Start: 89-19-2297Kjk spinal canal lumbar w/o contrast materialMelcarlos Fritz Work Phone: Start: 93-32-6529Qutbg bp <80 mm hgVahid Nagy Work Phone: start: 42-39-6032Wdge test prsmv read direct optical obs pr dateVahid Nagy Work Phone: Start: 41-49-8442RFILYAFURILV (SYSTEMIC)Vahid Nagy Start: 99-91-7822Iswonchrwdzfs w/patient 30 minutesStevernestina Grimaldo Work Phone: Start: 75-98-8903Ezil bp ge 130 - 139mm hgVahid Nagy Work Phone: start: 92-75-5240Cxyj test prsmv read direct optical obs pr dateLee Karla Bryan Work Phone: Start: 52-35-4697Kbacvxb of influenza vaccinationAijuanito Rowlandtart: 21-07-1513Scalm of troponin quantitativeJames P Kian Work Phone: Start: 03-79-8131Vsmir spine cervical 2 or 3 views Chago Langston Work Phone: Start: 06-47-5529Wvhlz spine lumbosacral 2/3 views Chago Langston Work Phone: Start: 90-73-2699Tlrqs shoulder complete minimum 2 viewsJames P Kian Work Phone: Start: 87-70-2152Ibxoekeswe exam chest 2 viewsJames P Kian Work Phone: Start: 69-64-4826Qhn routine ecg w/least 12 lds w/i&r Chago Langston Work Phone: Start: 24-39-3337Avhhk of troponin quantitativeJames P Kian Work Phone: Start: 07-66-0135JSHGB METABOLIC PANEL W/ REFLEX TO MG FOR LOW KJames P Kian Work Phone: Start: 63-16-7273Xogmi count complete auto&auto difrntl wbcJames P Kian Work Phone: Start: 86-80-6491Fenru dip stick/tablet rgnt auto w/o microscopyJames P Kian Work Phone: Start: 31-03-6207Vvwwa shoulder complete minimum 2 viewsCassie L King Work Phone: Start: 93-58-4697Jiduq bp <80 mm hgCassie King Work Phone: start: 91-44-1294Wijigfwyej glycosylated f9bKsaczq King Work Phone: Start: 53-79-0563Mtnsswqmp tromethamine injCassie King Work Phone: Start: 20-80-1804So-focused hlth risk assmt score doc stnd instrmCassie King Work Phone: Start: 24-44-0094Xcas bp lt 130 mm hgCassie King Work Phone: Start: 27-63-0298Oisgwpxrfta prophylactic/dx injection subq/imCassie King Work Phone: Start: 44-01-5999Eujze bp 80-89 mm hgAimee Angelita Work Phone: Start: 90-93-7197Spuy test prsmv read direct optical obs pr dateVahid Nagy Work Phone: Start: 25-36-2640Yyws bp ge 130 - 139mm hgAimee Angelita Work Phone: Start: 58-78-1752Lflkb bp <80 mm hgAimee Angelita Work Phone: Start: 28-09-9032Dimu test prsmv read direct optical obs pr dateAijuanito Nagy Work Phone: Start: 20-62-4994Bbvctelcetbzf w/patient 30 minutes Zach Grimaldo Work Phone: Start: 77-94-9197Ufkq bp >/= 140 mm hgAijuanito Nagy Work Phone: Start: 50-33-7461Atzuy dip stick/tablet rgnt non-auto w/o micrscpAjoelle Nagy Work Phone: Start: 38-88-4033Vvtwh occult fecal hgb deter ia qual feces 1-3Aimee Angelita Work Phone: Start: 76-26-8018Dlwuj bp 80-89 mm hgAimee Angelita Work Phone: Start: 91-98-2102Zmzh bld gluc mntr dev cleared fda spec home useVahid Nagy Work Phone: [phone]: 08-12-2121Gstrwmienb glycosylated e0zCyqdljuanito Nagy Work Phone: [phone]: 19-86-4826Ejvp bp >/= 140 mm hgEcu Health Duplin Hospitalki Nagy Work Phone: Start: 65-34-5425MTMFMJVY MELLITUSAigae DaniellaWomen & Infants Hospital of Rhode Islandtart: 35-91-6513Pcfxg bp <80 mm hgEcu Health Duplin Hospitalki Nagy Work Phone: Start: 97-02-9206Uhwh test prsmv read direct optical obs pr Veronica Nagy Work Phone: Start: 72-93-4821Rtze bld gluc mntr dev cleared fda spec home useVahid Nagy Work Phone: Start: 75-31-0003Xqtklzdiko glycosylated v1iEsdggjuanito Nagy Work Phone: Start: 19-39-5859Oirzvkfbtmjwz w/patient 30 minutes Zach Grimaldo Work Phone: Start: 64-63-7307Uxfc bp lt 130 mm hgjuanito Nagy Work Phone: Start: 13-30-2815Ibva test prsmv read direct optical obs pr Veronica Nagy Work Phone: Start: 01-92-3406wpkgvdnv hospitalizationsjuanito Nagy Start: 56-81-5119Icdt test prsmv read direct optical obs pr Veronica Nagy Work Phone: start: 38-75-4723BoupqnlrmuhicpkVqsjh [facility] Hospitaltart: 54-45-3804QpcbdoqcrlukxkbUhira [facility] Hospitaltart: 21-51-6966Egpx test prsmv read direct optical obs pr Veronica Nagy Work Phone: start: 47-30-4615Hlkr bld gluc mntr dev cleared fda spec home useEcu Health Duplin Hospitalki Nagy Work Phone: start: 59-23-2709Qbfrgircmx glycosylated p0tDdpfn Angelita Work Phone: start: 65-86-8815BGJHMKSZL INTERVERTEBRAL DISCAiProvidence Mission Hospital Laguna Beachtart: 10-47-3374YbgveraoxlacQisez CottenStart: 83-32-4696YIYZUQLVRWSISP DISC DEGENERATIONGrace Cottage Hospitaltart: 51-67-8954Ttn/trnsxj flp tube abdl/vag appr uni/biGrace Cottage Hospitaltart: 83-84-9210Geedtxax of fallopian tubePrisma Health Tuomey HospitalenStart: 70-16-7219SJDKVOYCehuy CottenStart: 77-88-3426buqv medical/surgical history [use for free text]VahidVermont State Hospitaltart: 31-95-9559Xcqjxxrherkm transluminal coronary angioplastyGrace Cottage Hospitaltart: 91-25-5904Tuovg abdominal hysterect w/wo rmvl tube ovaryAiProvidence Mission Hospital Laguna Beachtart: 60-87-0875Uvohi x-rayGrace Cottage Hospitaltart: 02-10-2018 Colorectal Screening Obtain ResultsPrisma Health Tuomey Hospitaltart: 50-24-6809Vzitzesaxn Screening Results in ChartPrisma Health Tuomey Hospitaltart: 01-20-2018 End: 07-20-2454Cumurongcb qual/semiquant except immunoassaysAimeKerbs Memorial Hospitaltart: 92-37-6017RD A1C LEVEL LT 7.0%P[facility] Tuomey Hospitaltart: 98-01-7523BsbawmjgpurcfRpsov Cotttart: 11-26-2017 End: 48-96-0294Mjnl bld gluc mntr dev cleared fda spec home useVahid Nagy Start: 11-26-2017 End: 35-29-6198Wqtbwiudjc glycosylated j4lZyziujuanito Rowlandrt: 28-02-4779Mkz bact xcpt urine blood/stool aerobic isoljuanito Rowlandrt: 19-42-0390Lqqqqflp Therapy.Singh Azevedoart: 30-95-1221Nblebrsvperti w/patient 30 minutesStevCovington County Hospitalart: 09-11-2017 End: 37-09-1551Iebo bld gluc mntr dev cleared fda spec home useAijuanito Angelita Start: 09-11-2017 End: 87-69-9122HEQ9 AdministeredStevCovington County Hospitalart: 80-70-3651KKUCL BP >/= 90 MM HGSteCopiah County Medical Centerart: 42-99-3143QHTH BP >/= 140 MM HGSBroaddus Hospital: 08-16-2017 End: 18-40-3238Ulec bld gluc mntr dev cleared fda spec home useVahid Angelita Start: 80-88-0013Khnl Management.Singh Galvinart: 08-06-2017 End: 17-47-3186V-reactive proteinAigaki Rowlandrt: 08-06-2017 End: 27-24-6042Cjdlpdmirjevv metabolic panelAijuanito Rowlandrt: 08-06-2017 End: 48-13-0685Gaz bone density study 1/> sites axial skelAjoelle Rowlandrt: 08-06-2017 End: 95-42-1418Tnsq bld gluc mntr dev cleared fda spec home useVahid Breweren Start: 08-06-2017 End: 07-44-1553Lnuxqpozmjn analyte qual/semiqual multiple stepAimeki Rowlandtart: 08-06-2017 End: 33-16-2535Dggle spine cervical 2 or 3 viewsAigaki Brewertart: 08-06-2017 End: 57-84-3690Uswkh spine lumbosacral 2/3 viewsAijuanito Rowlandtart: 08-06-2017 End: 25-93-3551Pkmuc spine thoracic 2 viewsAijuanito Rowlandtart: 08-06-2017 End: 68-50-8064Dtbjbzsqljbhi rate rbc automatedAijuanito Rowlandrt: 07-29-2017 End: 14-94-1063Zema bld gluc mntr dev cleared fda spec home useAimeki Angelita Start: 07-29-2017 End: 04-69-3335Vqqqysdcse glycosylated i7jRytcmpAultman Alliance Community Hospitalart: 02-20-2017 End: 60-45-2811Vzjelv Services Office VisitSBroaddus Hospital: 15-60-2666Fenyp spine lumbosacral 2/3 viewsAijuanito Rowlandtart: 38-67-7214FK A1C LEVEL 7.0-9.0% Zach Dillanart: 01-16-2017 End: 50-74-7045Kufkzn Services Office VisitSWilliamson Memorial Hospitalart: 07-93-5650PWZIU BP <80 MM [facility]art: 57-62-8789HH A1C LEVEL 7.0-9.0%Zach Dillan Start: 30-53-5914YONV BP LT 130 MM [facility]: 37-31-3406Uxlvtbjyov Screening Results in [facility]: 90-52-6085Syqme of thyroid stimulating hormone tshStAultman Alliance Community Hospitalart: 73-81-8093Nupla count complete auto&auto difrntl wbcStAultman Alliance Community Hospitalart: 90-14-2733Nqyikstrhu venous blood venipunctureStAultman Alliance Community Hospitalart: 12-14-2016 End: 76-48-9118Wlzprabpnutvk metabolic panelSBroaddus Hospital: 12-14-2016 DIAST BP <80 MM [facility] Hospitalart: 12-14-2016 End: 69-24-4284Fnhiykgkt c antibodyStAultman Alliance Community Hospitalart: 82-03-3168FP A1C LEVEL LT 7.0%Zach Grimaldoart: 20-61-5059Cazkr panelSBroaddus Hospital: 58-02-4500RHH2 AdministeredStAultman Alliance Community Hospitalart: 02-75-2155Ruiqovpfoxvwo w/patient 30 minutesStevCopiah County Medical Center: 94-83-1911YOGHA NegativeSBroaddus Hospital: 89-61-1986Ibalrcqwt, Brief Intervention, Referral and Treatment Zach Dillanart: 25-28-9473ZEJM BP LT 130 MM [facility] Hospitalart: 12-14-2016 End: 46-49-5691XVAB EXAM PERFORMEDStAultman Alliance Community Hospitalart: 12-14-2016 End: 47-80-5298Piwy bld gluc mntr dev cleared fda spec home useVahid Nagy Start: 12-14-2016 End: 08-37-2408Qfynzonztp glycosylated i1hNkpodx [facility]art: 04-14-1399KDP8 AdministeredSternestina Dillanart: 86-19-7102Xdpylotxhbpcx w/patient 30 minutes Zach Dillanart: 30-16-5102HLPMQ Pre-Screening *NEGATIVE*Zach Grimaldo Start: 66-96-6321Fcplgpcqd, Brief Intervention, Referral and Treatment (Indicate category below)Zach Dillanart: 20-81-0331Lrdbhrw cessation educationSternestina [facility] Instituteart: 83-00-1523XbidvpfzqjgKcyogo Iacob MD Work Phone: Start: 14-65-2974Kuzhx of thyroid stimulating hormone tshSternestina [facility] Instituteart: 83-11-2466Kwdao count complete auto&auto difrntl wbc Zach DillanStart: 31-87-7577Pdpawtyhzo venous blood venipunctureSternestina Dillanart: 03-11-2015 End: 05-73-1211Nkqgesxmtpvsn metabolic panelSWilliamson Memorial Hospitalart: 64-42-5954Utgi screen multi drug classStAultman Alliance Community Hospitalart: 34-45-6879Wkltl panelSWilliamson Memorial Hospitalart: 02-71-1990Arh not indicatedStAultman Alliance Community Hospitalart: 68-01-0292Meci bld gluc mntr dev cleared fda spec home useAigaki DaniellaWomen & Infants Hospital of Rhode Islandrt: 03-11-2015 Mammogram, screeningAigaki [facility] Hospitalrt: 76-46-4483Fuppbippzy Health Coordination of Carekamillaernestina Dillanart: 02-10-2015 End: 89-43-5310Vkufozlzcuo w/biopsy single/multipleSternestina Dillanart: 44-89-8687AHG2 AdministeredNor-Lea General Hospitalernestina Dillanart: 33-32-6183Bxhhtvvpyxmrv w/patient 30 minutesSternestina Grimaldoart: 51-90-9212Cdlfufbn to dental for routine/urgent dental care.Zach Dillanart: 88-93-4235XVRHK Pre-Screening *NEGATIVE*Zach Dillanart: 36-41-0337Tedhonx cessation educationSternestina [facility] Instituteart: 91-29-2263Qbndcujfc, screeningAie Janettrt: 02-10-2015 End: 25-56-3155WYBJ EXAM PERFORMEDStshirley GrimaldoEtna: 02-10-2015 End: 03-30-7836Nbka bld gluc mntr dev cleared fda spec home useSjeane Grimaldo Start: 02-10-2015 End: 81-99-4902Gdorirgbec glycosylated v4lHeaylu art: 02-10-2015 End: 73-25-1102FON SCREENING *in-house*Zach GrimaldoStart: 02-10-2015 End: 67-71-4202Qtfsb albumin semiquantitativeSternestina art: 02-10-2015 End: 24-26-0592Xmwxf dip stick/tablet rgnt non-auto w/o micrscpStenathalie Grimlado History of placement of stent for coronary artery diseaseH/O heart artery stent DO Carlo Grimaldo Work Phone: NEGATED: Highlighted row has not occurred!Start: 76-91-8910es recent change in medical historyAijuanito RedmanGATED: Highlighted row has not occurred!Start: 40-57-9132pqbqrkvr a history of cancerVahid Nagy NEGATED: Highlighted row has not occurred!Start: 50-48-2866tjwxpaki physical traumaAimee Angelita Plan of Treatment DateCare ActivityDetailAuthorStart: 32-31-4576Cxiboqdet for malignant neoplasm of colonRussell County Medical Center: 81-90-0647GAaQ,Tdap and Td Vaccines (3 - Td or Tdap)DTaP,Tdap and Td Vaccines (3 - Td or Tdap)[facility] Start: 95-51-3862EJmV/Tdap/Td vaccine (3 - Td or Tdap)DTaP/Tdap/Td vaccine (3 - Td or Tdap)[facility]: 11-82-8383DBWRF-19 Vaccine (#1)COVID- 19 Vaccine (#1)[facility] on above:Postponed from 03/01/1960 (Patient Refused)Start: 79-85-9169VHhC/Tdap/Td vaccine (2 - Td or Tdap)DTaP/Tdap/Td vaccine (2 - Td or Tdap)[facility]: 01-07-2027 DTaP/Tdap/Td vaccine (2 - Td)DTaP/Tdap/Td vaccine (2 - Td)[place] Start: 75-33-4030Mptnflx vaccinationAIDAN SolorzanoUniversity Hospitals Health Systemtart: 37-44-7358Phtkymn ScreeningTobacco ScreeningAtrium Health Huntersvilletart: 31-54-3475Qbyfd BMI ScreeningAdult BMI ScreeningAtrium Health Huntersvilletart: 02-18-2364NLT test (Diabetes, CKD 3-4, OR last GFR 15-59)GFR test (Diabetes, CKD 3-4, OR last GFR 15-59)Bon [facility]: 48-74-1420Cwlgjkzpls A1c eppgmecbmqcY6F test (Diabetic or Prediabetic)Bon [facility]: 26-14-1025MBQ test (Diabetes, CKD 3-4, OR last GFR 15-59)GFR test (Diabetes, CKD 3-4, OR last GFR 15-59)[facility]: 45-59-6884DAJ test (Diabetes, CKD 3-4, OR last GFR 15-59)GFR test (Diabetes, CKD 3-4, OR last GFR 15-59)Bon [facility]: 45-10-6699Vymrutzm foot examinationDiabetic foot examBon [facility]: 35-30-1351Jzqmqyjzmt A1c whdrqmrjmysU1N test (Diabetic or Prediabetic)Bon [facility]: 57-47-4164Ktulatdxo for malignant neoplasm of lungLung Cancer Screening &/or CounselingBon [facility] Hospitalart: 07-90-3360Dfwqw BMI ScreeningAdult BMI ScreeningAtrium Health Huntersvilletart: 21-88-9310Suohngv ScreeningTobacco ScreeningAtrium Health Huntersvilletart: 74-19-2538Znhnx BMI ScreeningAdult BMI ScreeningAtrium Health Huntersvilletart: 03-96-3594Btusnap ScreeningTobacco ScreeningMorrow County Hospital Start: 13-10-5322Advhhbtrbi MonitoringDepression MonitoringBon [facility] Hospitalart: 39-10-1168Bjltfodiby ScreeningDepression ScreeningSamaritan Hospital SystemStart: 36-02-2322Nytqasa ScreeningTobacco ScreeningSamaritan Hospital System Start: 46-77-4818Mhugg BMI ScreeningAdult BMI ScreeningMorrow County Hospital Start: 08-19-2337Hksbj cancer screen colonoscopyColon cancer screen colonoscopy [facility] [place]Start: 17-01-6913Xvilljwkn for malignant neoplasm of colon [facility] CenterStart: 80-05-7266Uwtfe BMI ScreeningAdult BMI ScreeningSamaritan Hospital SystemStart: 60-49-6148Kgiaf BMI ScreeningAdult BMI ScreeningSamaritan Hospital SystemStart: 86-18-1187Bhsmrst ScreeningTobacco ScreeningSamaritan Hospital SystemStart: 01-14-2025 End: 46-84-5825Uyteaik encounter nbhjmysrv24/16/2025 1:45 PM EDT Office Visit [facility] [address] [place] [address] Zach Saravia DPM [address] [place] [address] ArrivedNOMS Dhillon PodiatryComment on above:ArrivedStart: 25-82-2271Paqkf BMI ScreeningAdult BMI ScreeningAtrium Health Huntersvilletart: 98-38-6540Ypslqmf ScreeningTobacco ScreeningAtrium Health Huntersvilletart: 12-22-2024 End: 97-44-3417Xsgroeiwt jxcukvqgg74/23/2025 2:00 PM EDT Scheduled Telephone Encounter [facility] [address] [place] [address] [address] [place] [address] Osmar Rodriguez MD [address] [place], [place] [id number] TELEPHONE VISIT f/u [facility] Primary [facility] CenterComment on above:TELEPHONE VISIT f/u [facility] centerStart: 29-07-3732Hitnprbao vaccinationInfluenza Vaccine [facility] SystemStart: 51-33-9827HPS test (Diabetes, CKD 3-4, OR last GFR 15-59)GFR test (Diabetes, CKD 3-4, OR last GFR 15-59)[facility]OH[facility] Start: 88-93-2101Kqrmqfuxjw A1c vhaqgtwdltqQ9E test (Diabetic or Prediabetic)[facility] SYSTEMStart: 30-87-5886Migyn panelLipidsBON [facility] Start: 92-96-2958Fmjtsdbmk vaccinationBon OhiohealthStart: 10-14-2024 End: 79-72-2427Zljbcbr encounter xmfoldgqf42/16/2025 1:45 PM EDT Office Visit [facility] Part [address] [place] [address] Gordo Colmenares MD [address] [place] [address] [address] [place] [address] F/U from 08/19/2024[facility] CampusComment on above: F/U from 08/19/2024Start: 10-07-2024 End: 52-67-1989Xkqoekp encounter ntetblnln15/09/2025 1:45 PM EDT Office Visit [facility] [address] [place] [address] [address] [place], [place] [id number] Osmar Rodriguez MD [address] [place] [address] [address] [place] [address] F/u med managementOhio Valley Surgical Hospital Primary CareComment on above:F/u med managementStart: 08-30-2024 Fall Risk ScreeningFall Risk ScreeningProMercy Health St. [facility] SystemStart: 08-30-2024 Pneumococcal 0-64 years Vaccine (2 of 2 - PPSV23)Pneumococcal 0-64 years Vaccine (2 of 2 - PPSV23)[facility] CenterStart: 30-76-3165Zcfleyflwxko 0-64 years Vaccine (3 - PPSV23 if available, else PCV20)Pneumococcal 0-64 years Vaccine (3 - PPSV23 if available, else PCV20)[facility] SYSTEMStart: 71-25-4415Csseohgrrsze 0-64 years Vaccine (3 - PPSV23 or PCV20)Pneumococcal 0-64 years Vaccine (3 - PPSV23 or PCV20)[facility] SYSTEMStart: 57-90-9437Sfnpinramtiq 0-64 years Vaccine (3 of 3 - PPSV23 or PCV20)Pneumococcal 0-64 years Vaccine (3 of 3 - PPSV23 or PCV20)[facility] SYSTEMStart: 48-32-2195WKSGNWNGVBOU VACCINE SERIES (3 - PPSV23 if available, else PCV20)PNEUMOCOCCAL VACCINE SERIES (3 - PPSV23 if available, else PCV20)[facility] Hospitaltart: 08-24-2024 End: 23-41-2926Tpqpq metabolic 2000 panel - Serum or PlasmaBasic Metabolic Panel Lab Routine Open wound of foot excluding toes Expected: 08/24/2024, Expires: 0 08/17/2025on [facility] on above:Expected: 08/24/2024, Expires: 08/17/2025Start: 08-24-2024 End: 45-41-7092LBA W Auto Differential panel - BloodCBC with Auto Differential Lab Routine Open wound of foot excluding toes Expected: 08/24/2024, Expires: 08/17/2025on [facility] on above:Expected: 08/24/2024, Expires: 08/17/2025Start: 08-19-2024 End: 92-96-5480Ijkikwv encounter zaflrgbkv28/21/2025 12:45 PM EDT Office Visit [address] [place] [address] Gordo Colmenares MD [address] [place] [address] [address] [place] [address] hosp. stay, Claudications PVD, [facility] Comment on above:hosp. stay, Claudications PVD, PADStart: 08-13-2024 End: 86-19-6277Duwjsel encounter uhewwzhrt67/15/2025 9:30 AM EDT Office Visit [facility] [address] [place] [address] [address] [place] [address] Osmar Rodriguez MD [address] [place] [address] [address] [place] [address] [facility] CareStart: 08-07-2024 End: 76-01-5756Sozqsfvy Ttqbsiv4508/07/2024 10:30 AM EDT Clinical Support [facility] - Pharmacy Medication Management [address] [place] [address] GzjFwzqab [facility] - Pharmacy Medication ManagementStart: 07-24-2024 End: 60-09-3531Avuvmli encounter odwcjsnrt67/25/2025 8:40 AM EDT Office Visit 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 [address] [place] [address] [facility] ClinicStart: 04-27-2024 End: 43-44-5442Reygbwy encounter nvpuqkjqz42/27/2025 2:00 PM EST Office Visit [facility] [address] [place] [address] Rebeca Johnson MD [address] [place] [address] [facility] VascularStart: 79-89-7092Xxlrvbzljrqo 50+ years Vaccine (3 of 3 - PCV20 or PCV21)Pneumococcal 50+ years Vaccine (3 of 3 - PCV20 or PCV21)[facility]Start: 04-18-2024 End: 57-79-2681Aslpqgadp to same day surgery zpszwy7904/18/2024 10:00 AM EST - 04/18/2024 11:38 AM EST [facility] - Special Procedures [address] [place] [address] Rebeca Johnson MD [address] [place] [address] LYSIS RECHECK EXTREMITY LOWERJ.W. Ruby Memorial Hospitalca [facility] - Special ProceduresComment on above:LYSIS RECHECK EXTREMITY LOWERStart: 04-18-2024 End: 49-65-4666EWNTYYQQL EXTREMITY LOWERANGIOGRAM EXTREMITY LOWER LLE LIMB ISCHEMIA 04/18/2024 10:00 AM ESTJoint Township District Memorial Hospital Health SystemStart: 04-18-2024 Subsequent hospital visit by eekaaixdg24/18/2025 10:00 AM EST Hospital Encounter [facility] Special Procedures [address] [place] [address] Rebeca Johnson MD [address] [facility] [place], [place] [facility] Special ProceduresStart: 67-47-8851Rcqosncbov MonitoringDepression MonitoringWELLMONT HEALTH SYSTEMStart: 92-48-3579KufzmkqjkParkwood Hospitaltart: 35-36-9856Dnusluxd to vascular surgeonParkwood Hospitaltart: 42-92-2089Zlgzcirxbktek metabolic 2000 panel - Serum or PlasmaParkwood Hospitaltart: 84-19-6762IhergwoflParkwood Hospitaltart: 34-70-9987GgjavmidnParkwood Hospitaltart: 16-40-3196Holunjmm to general surgeonFulton County Health Center CenterStart: 01-47-0055QytgamrswgmdCvvupxjstParkwood Hospitaltart: 31-95-8030Wwgujpuz to cardiologistFulton County Health Center CenterStart: 08-57-5147Ejxxrboh admissionParkwood Hospitaltart: 01-17-2024 End: 19-81-9329Atemnlhqeiljpnfvusxipvgwaq transoral diagnostic ESOPHAGOGASTRODUODENOSCOPY DIAGNOSTIC Upper GI bleed 01/17/2024 1:47 PM EDT [facility]OSCOPYStart: 15-67-5976FVMCA-19 Vaccine ( season)COVID-19 Vaccine ( season)Bon [facility]healthStart: 69-87-0142Ihzsdltfk vaccinationInfluenza VaccineProUniversity Hospitals Ahuja Medical Centertart: 11-22-2023 End: 07-28-4158Hvajbyd encounter awhgowcwv22/23/2024 2:45 PM EDT Office Visit [facility] [address] [place] [address] [address] [place] [address] Osmar Rodriguez MD [address] [place], [place] [id number] 1 month FU/Mammogram OverdueOhio Valley Surgical Hospital Primary CareComment on above:1 month FU/Mammogram Overdue Start: 11-20-2023 End: 65-30-5388Kjkvovh encounter vougonnau68/21/2024 1:30 PM EDT Office Visit [facility] PUL Part [facility] [address] [place], [place] [phone] Gwendolyn Garces MD [facility] [id number] Chronic obstructive pulmonary disease, unspecified COPD type (HCC)[facility] PUL Part [facility] HospitalComment on above:Chronic obstructive pulmonary disease, unspecified COPD type (HCC)Start: 55-56-8409Hhbladish vaccinationFlu vaccine (#1)[facility]: 56-84-7475Tgnfzurtmp ScreeningDepression ScreeningAtrium Health Huntersvilletart: 58-09-2961WNT test (Diabetes, CKD 3-4, OR last GFR 15-59)GFR test (Diabetes, CKD 3-4, OR last GFR 15-59)[facility]: 56-85-3113SJY test (Diabetes, CKD 3-4, OR last GFR 15-59)GFR test (Diabetes, CKD 3-4, OR last GFR 15-59)[facility]: 07-27-2023 Hemoglobin A1c oozdqdcwamrE7N test (Diabetic or Prediabetic)[facility]: 30-27-0275Wlwol panelLipidsBON [facility]: 09-68-8336Rilme screening for proteinBON [facility]: 04-09-2023 Depression MonitoringDepression MonitoringBON [facility] Centerart: 62-89-7031Rsdfhzdon vaccinationFlu vaccine (Season Ended)[facility] Hospitalment on above:Postponed from 10/30/2022 (Patient Refused)Start: 71-56-0021Qlombbeu vaccine (1 of 2)Shingles vaccine (1 of 2)[facility] 08/30/2009 (Patient Refused)Start: 21-58-4028NUD test (Diabetes, CKD 3-4, OR last GFR 15-59)GFR test (Diabetes, CKD 3-4, OR last GFR 15-59)[facility]: 26-08-1093QOJYM-19 Vaccine ( season)COVID-19 Vaccine ( season)[facility] 09-06-2022 End: 70-01-3800Cacegjl encounter dfpxhilbc33/08/2023 Office Visit Primary Care Osmar Rodriguez MD [address] [place] [address] [facility] CareStart: 41-70-4032Vvkpf panelLipidsBON [facility]: 05-25-1377Ebbfmqgrod A1c mlyndldmsiqQ6C test (Diabetic or Prediabetic)[facility]: 08-07-2022 End: 34-22-6789Pxizoqs encounter zighdvmgw70/09/2023 Office Visit Primary Care Osmar Rodirguez MD [address] [place] [address] [facility] Primary CareStart: 08-01-2022 End: 85-22-9651Qokyoia encounter /03/2023 Office Visit Cardiology Nydia Barton PA-C [address] [place] [address] [facility] Part of [facility]: 07-24-2022 End: 56-92-7849Oacoppp encounter rdqyxyunk99/25/2023 Office Visit Cardiology Nydia Barton PA-C [address] [id number] [facility] CARDIOLOGY Part of [facility]art: 51-84-3872Dufsaahwi monitoringPotassium monitoringAdena Fayette Medical CenterStart: 06-08-2022 End: 26-48-3031Ukywetathvxh consultation with yqprjlq7606/08/2022 Telemedicine General Surgery Corrine Chery, O AND M SUPERVISOR-STUDENT COUNSELLOR [address] [place], [place] General and Gastrointestinal Surgery [facility] Hospitaltart: 18-95-9329Lapkapoxtp measurementCreatinine monitoringAdena Fayette Medical Center Start: 31-80-7195Npjisqs stimulating hormone measurementTSH testingAdena Fayette Medical Center Start: 89-48-4062Chdizgkvgo A1c qiwnnsivmzlV7V test (Diabetic or Prediabetic) [facility] Hospitalart: 84-18-1229[place] screening for proteinAdena Fayette Medical CenterStart: 21-03-9308Nwfeslmtqq measurementCreatinine monitoringAdena Fayette Medical CenterStart: 01-94-8041Pzadirhnd monitoringPotassium monitoringAdena Fayette Medical CenterStart: 04-06-2022 Depression MonitoringDepression MonitoringAdena Fayette Medical CenterStart: 44-32-8988Hgxqneee foot examinationDiabetic foot examAdena Fayette Medical CenterStart: 67-37-1292Mqfcoeguqk measurementCreatinine monitoringAdena Fayette Medical CenterStart: 23-11-5967Xqfeofwmo monitoringPotassium monitoringAdena Fayette Medical CenterStart: 77-26-9413ZXNIW-19 Vaccine (#1) COVID-19 Vaccine (#1)BON cube19 [facility] CENTERComment on above:Postponed from 03/01/1960 (Patient Refused)Start: 74-78-0356Meoybait vaccine (1 of 2)Shingles vaccine (1 of 2)BON SECMeteo-Logic [facility] MEDICAL CENTERComment on above:Postponed from 08/30/2009 (Patient Does Not Have Time)Start: 77-38-3191Zenefsqosk measurement Creatinine monitoringAdena Fayette Medical CenterStart: 62-79-4944Ktkgtbqmk monitoringPotassium monitoringMercy HealthStart: 01-23-2022 End: 34-75-7161Aabzcro encounter ecjvsvqrt37/25/2022 Office Visit Primary Care Osmar Rodriguez MD [address] [place] [address] [facility] Primary CareStart: 22-71-4118Iiudjzfeds measurementCreatinine monitoringMercy Health Work Phone: start: 30-38-8691Ffibsonki monitoringPotassium monitoringMercy Health Work Phone: start: 90-66-8630Weljlhklun measurementCreatinine monitoringMercy Health Work Phone: start: 43-53-2518Cmvaycduz monitoringPotassium monitoringMercy Health Work Phone: start: 84-26-4012Ezalqeqkxd measurementCreatinine monitoringMercy Health Work Phone: start: 09-27-6334Qcuedowvr monitoringPotassium monitoringMercy Health Work Phone: start: 95-56-2270Wluqeytyx vaccinationJ.W. Ruby Memorial Hospitaltart: 08-71-8447Kpglzkwcx vaccinationFlu vaccine (#1)[facility]ITALStart: 10-24-2021 End: 36-69-3420Rypjohp encounter zzqbogpfy50/26/2022 Office Visit Cardiology Josef Brooks MD [address] [place] [id number] [facility] C[facility] Part [facility]tart: 05-16-2021 End: 24-91-7957Knhyjkl encounter zpuixyott25/15/2022 Office Visit Primary Care Osmar Rodriguez MD [address] [place] [address] [facility] Primary CareStart: 05-10-2021 End: 80-45-0945Sncwqps encounter xbtsxcgix33/09/2022 [facility]ment [facility] MammographyStart: 05-02-2021 End: 89-79-1355Lqyeizj encounter yxsxjkieb43/01/2022 Office Visit General Surgery Carlo Bridges MD [address] [place] [address] [facility] GENERAL SURGERY Part of [facility]art: 04-24-2021 End: 07-56-1947Gksgbea encounter petkmblei89/24/2022 Office Visit Primary Care Osmar Rodriguez MD [address] [place] [address] [facility] Primary CareStart: 94-75-7856Hqildoblya A1c azqljbyjzwkB7U test (Diabetic or Prediabetic)[facility] CenterStart: 94-14-4115Btjkeytncs measurementCreatinine monitoringMercy Health- [place], [place]Start: 36-70-8829Aspwypvay monitoringPotassium monitoringMercy Health- [place], [place]Start: 79-68-1157Vgyzvdtwuf measurementCreatinine monitoringMercy Health- [place], [place]Start: 62-33-6960Ryxwfoftx monitoringPotassium monitoringMercy Health- [place], [place] Start: 29-38-1238Ddldknmzwq measurementCreatinine monitoringMercy Health- [place], [place] Start: 74-00-7743Yqokg panelMercy HealthStart: 04-54-6896Zjbrsofux monitoring Potassium monitoringMercy Health- [place], [place]Start: 94-74-5940Awehtksbuk measurement Creatinine monitoringMercy Health- [place], [place]Start: 60-11-4808Pjhpg panelLipid screenMer Health- [place], [place]Start: 05-68-9612Ojfchanfg monitoringPotassium monitoringMercy Health- [place], [place]Start: 35-24-1231Rydfwjz stimulating hormone measurementTSH testingTuscarawas Hospitalcy HealthStart: 48-06-1663GWI QnTSH testingVeterans Health Administration Health- [place], [place]Start: 18-47-5854Qmnemmwis vaccinationFlu vaccine (#1)[facility] Start: 06-29-7415Aebunlysbo measurementCreatinine monitoringMercy Health- [place], [place] Start: 27-66-3837Xpesjzoeo monitoringPotassium monitoringOhiohealth Doctors Hospital [place], [place] Start: 23-87-6288Nnuhfooxak measurementCreatinine monitoringOhiohealth Doctors Hospital [place], [place] Start: 30-63-8934Cxabfbime monitoringPotassium monitoringOhiohealth Doctors Hospital [place], [place] Start: 38-76-3555Tmsdhuphsd measurementCreatinine monitoringOhiohealth Doctors Hospital [place], [place] Start: 14-24-2024Aciajwqup monitoringPotassium monitoringKeenan Private Hospital, [place] Start: 65-58-9767Fayahsydvo measurementCreatinine monitoringOhiohealth Doctors Hospital [place], [place] Start: 68-83-2978Ozrnahvhf monitoringPotassium monitoringKeenan Private Hospital, [place] Start: 04-43-7188RjK3g (Bld) [Mass fraction]A1C test (Diabetic or Prediabetic) [facility], [place]Start: 24-88-9263Rawepexrlt A1c dxwbihuvuisY4P test (Diabetic or Prediabetic)[facility] CenterStart: 68-59-0931Lgbptryejm measurement Creatinine [facility], [place]Start: 03-70-0946Cozhzyepq monitoring Potassium [facility], [place]Start: 16-17-2244QIH QnTSH testingKeenan Private Hospital, KYStart: 82-26-4458Bjzopxisg for malignant neoplasm of lungLow dose CT lung screeningAdena Fayette Medical CenterStart: 86-27-7515Tsstjfnoui monitoringCreatinine monitoringA[facility]a [facility] Work Phone: start: 67-26-7400Dnjfmlzzm monitoringPotassium monitoringAdena [facility] Work Phone: start: 99-21-8023Iwm dose CT lung screeningLow dose CT lung screeningKeenan Private Hospital, KYStart: 83-14-0394Vtgcznqgr for malignant neoplasm of lungLung Cancer Screening &/or CounselingWELLMONT HEALTH SYSTEM Start: 03-15-2020 End: 59-04-0437Tabaah [facility] HypertensionStart: 13-09-8704ZxgueqzxsplQvlkqpdoe - Screening (13323)[facility] Work Phone: Start: 02-24-2020 End: 87-11-3387Ytqnehjctmo74/25/2020 Appointment IP UnitMTHZ CATH LABStart: 51-35-4488Bdwkm [address] [place] [address] Work Phone: Start: 02-01-2020 End: 48-85-0786Lxmvjb Visit02/01/2020 Office Visit Cardiology Josef Brooks MD [address] [place] [address] [facility] CARD[facility] Part of [facility]ertart: 72-74-3755VbhftrbycvCommunity Regional Medical Center Work Phone: Comment on above:Note: Please make a referral to: Start: 37-15-0265Yocozkpcu vaccinationFlu vaccine (#1)[place], [place]Start: 11-23-2019 End: 58-65-7190Guqumw Visit11/23/2019 Office Visit Cardiology Josef Brooks MD [address] [place] [address] [place] [address] [facility] CARDIOLOG[facility] Part of [facility] Centertart: 36-30-0298Twehbquolcyh consultation with [facility] Work Phone: Comment on above:Note: Please make a referral to: Start: 10-26-2019 End: 62-26-2216Gtcjpf Visit10/26/2019 Office Visit Pulmonology Favian Alvarez MD [address] [address] [facility] OUTREACH PULM Part of [facility] HospitalStart: 10-12-2019 End: 41-66-5585Gtveaf Visit10/12/2019 Office Visit Cardiology Josef Brooks MD [address] [place] [address] [facility] CARDIOLOG[facility] Part of [facility] HospitalStart: 10-01-2019 End: 62-79-6102Oqsyfdoyilp58/02/2020 Appointment IP UnitMTHZ CATH LABStart: 09-29-2019 End: 44-88-7947Elgpel Visit09/29/2019 Office Visit Cardiology Josef Brooks MD [address] [place] [address] [facility] CARDIOLOG[facility] Part of [facility] HospitalStart: 09-28-2019 End: 61-35-8459Muwsajgemcb63/29/2020 Appointment LabMTHZ Covid ScreeningStart: 32-25-2407Twtpyan Established PatientGoodland Regional Medical Center Work Phone: Start: 09-24-2019 End: 58-07-9861Hrdxfuipcot08/25/2020 Appointment IP UnitMTHZ CATH LABStart: 69-03-2963Tyvsuean Medicine & RehabHealth [facility] Work Phone: Comment on above:Note: Please make a referral to: [facility]oStart: 09-21-2019 End: 09-10-8947Ponwdr Visit09/21/2019 Office Visit Pulmonology Favian Alvarez MD [address] [address] [phone] [facility] OUTREACH PULM Part of [facility]art: 09-18-2019 End: 63-90-7211Nkwpwx Visit09/18/2019 Office Visit Cardiology Josef Brooks MD [address] [place] [address] [facility] CARDIOLOG[facility] Part of [facility] HospitalStart: 09-17-2019 End: 20-57-1640Wfgonjkwrxb17/18/2020 Appointment Stress LabMTHZ Stress LabStart: 75-11-2966RfxvocldxoxrMwxiohGeary Community Hospital Work Phone: Start: 09-10-2019 End: 13-00-0075Roikdh VisitWAY[facility] OUTREACH PULM Part of [facility] HospitalStart: 09-09-2019 End: 31-82-5485Xuiurtwfmet57/10/2020 Appointment Stress LabMTHZ Stress LabStart: 65-21-6892Ajjgaarpstw Syncytial Virus (RSV) or age 60 yrs+ (1 - 1-dose 60+ series)Respiratory Syncytial Virus (RSV) or age 60 yrs+ (1 - 1-dose 60+ series)[facility] SYSTEMStart: 25-41-2754Czleiapkqdh Syncytial Virus (RSV) or age 60 yrs+ (1 - Risk 60-74 years 1-dose series)Respiratory Syncytial Virus (RSV) or age 60 yrs+ (1 - Risk 60-74 years 1-dose series)Bon OhiohealthStart: 38-08-4061Ncivqqlfb for malignant neoplasm of colonFIT/FOBT: Average [facility]Start: 08-03-2019 End: 50-01-6555Yfnyzy Visit08/03/2019 Office Visit Cardiology Josef Brooks MD [address] [place] [address] [facility] CARDIOLOGYStart: 07-06-2019 End: 58-54-3617Elcisd Visit07/06/2019 Office Visit Pulmonology Martin Alvarez MD [address] [id number] [facility] OUTREACH PULMStart: 06-23-2019 End: 49-69-9298ClkzllkvgboWalfq Health T[place] CT ScanStart: 06-09-2019 End: 49-57-1916Uphvtg Visit06/09/2019 Office Visit Cardiology Josef Brooks MD [address] [place] [address] [facility] CARDIOLOGYStart: 65-51-7719VT Chest PA & LAT ([id number])[facility] Work Phone: start: 05-13-2019 End: 48-49-5586Abujlpa encounter mxykflctn40/12/2020 Appointment [facility] MammographyStart: 04-28-2019 End: 85-94-9569Zgbxykb encounter zyctapnrx72/28/2020 Office Visit Cardiology Josef Brooks MD [address] [place] [address] [facility] CARDIOLOGYStart: 04-19-2019 MammographyMammogram - Screening (33557)[facility] Work Phone: start: 94-63-2887Goeqg 1996 panelLipid ProfileCardinal Cushing Hospital Work Phone: Start: 30-20-2077Lwujg Drugs of Abuse Screen (DANIEL) [facility] Work Phone: Start: 19-99-1328Qohdhgg Established [facility] Work Phone: Start: 03-12-2019 End: 89-64-2401Ewjsopcjwnh42/12/2019 Appointment Vascular LabProvidence Hospital Vascular LabStart: 35-88-5848Wocuq panelLipid screenKeenan Private Hospital, KYStart: 73-92-2466Onrzu screenLipid screenKeenan Private Hospital, KYStart: 51-14-0685YY Shoulder 2 Views (49953)[facility] Work Phone: start: 01-15-2019 End: 08-09-3091Oezad metabolic 2000 panelBasic Metabolic Panel Lab Routine Hyponatremia Expected: 01/15/2019, Expires: 01/14/2020[facility], [place] Comment on above:Expected: 01/15/2019, Expires: 01/14/2020Start: 01-14-2019 [facility] Work Phone: comment on above:Note: Please make a referral to: Start: 22-81-2609Maztqrs StockCardinal C[facility] Hospital Work Phone: Start: 49-52-8706Bhmezcyu TherapyCardinal C[facility] Hospital Work Phone: comlljh on above:Note: Please make a referral to: Start: 85-57-4334Kjffazctu to same day surgery centerGeneral SurgeryCardinal Cushing Hospital Work Phone: comment on above:Note: Please make a referral to: Dr Avila: 20-31-3861Rygtokw Established [facility] Work Phone: Start: 10-30-2018 End: 88-33-5445JynslocgjxwMjpxkaCardinal Cushing Hospital Work Phone: comment on above:Note: Please make a referral to: Start: 09-30-2018 End: 09-78-6673Zihetjioewsvu metabolic 2000 panelComprehensive Metabolic Panel (CP)[facility] Work Phone: Start: 09-30-2018 End: 23-82-0509Fuoa T4 [Mass/Vol]T4 Free (FT4)[facility] Work Phone: start: 09-30-2018 End: 92-51-8106Pjcmz panelLipid Panel (LIPR)[facility] Work Phone: start: 09-30-2018 End: 25-71-8437FhhalrgwducEjgexnCardinal Cushing Hospital Work Phone: Start: 09-30-2018 End: 79-50-0818IMU QnTFlorence Community Healthcare Work Phone: start: 85-05-3735EKS W Auto Differential panel - Blood CBC with diff (CDP)[facility] HospitalStart: 49-27-1291Utgsdrdhhyder metabolic 2000 panelComprehensive Metabolic Panel (CP)[facility] Work Phone: start: 15-18-2511Afug T4 [Mass/Vol]T4 Free (FT4)[facility] Work Phone: Start: 34-39-1628Enkyz panelLipid Panel (LIPR)[facility] Work Phone: Start: 01-65-7858QequvzczihhYyjibkCardinal Cushing Hospital Work Phone: start: 03-18-4828FAW QnTFlorence Community Healthcare Work Phone: start: 05-14-2756Tnuxetvlbdrg 0-64 years Vaccine (1 of 1 - PPSV23)Pneumococcal 0-64 years Vaccine (1 of 1 - PPSV23)[facility]- [place], [place]Start: 29-00-3007DTDK visit, estab ptEstablished PatientGoodland Regional Medical Center Work Phone: Start: 84-63-6249KKVN visit, estab ptEstablished PatientGoodland Regional Medical Center Work Phone: Start: 63-59-9549Emljrtbtai radiography of chest, combined PA and lateralChest xray, PA & lateralHealth [facility] start: 51-53-6992Nsnxtfk bacterial quanttative colony count urineUA + reflex cultureHealth [facility] start: 29-95-7784Reslgyrgtz qual/semiquant except immunoassaysUA + reflex cultureHealth [facility] start: 68-39-5667Xqnzjddx foot examinationDiabetic foot examMer HealthStart: 77-40-7775Xmd bact xcpt urine blood/stool aerobic isol Wound culture and sensitivityHealth [facility] start: 83-42-4215Mvxqiatefvk antibodies anaANA screen [facility] start: 50-21-5197Virit of free thyroxineTSH + free t4 [facility] start: 43-61-6002Pmbbf of thyroid stimulating hormone tshTSH + free r1Nbrsrt [facility] start: 10-83-7046Lvjos count complete auto&auto difrntl wbcCBC W/DiffHealth [facility] Start: 08-06-2017C reactive protein (CRP)CRPHealth [facility] Start: 33-08-5463Bynhunnplagry metabolic panelCMPHealOhio State University [facility]xner Medical [facility] start: 88-19-9361Ctec energy X-ray photon absorptiometryDEXA scan for body composition studyHealth [facility] Start: 86-47-5019Ohijcfatomp sedimentation rateESR [facility] start: 44-91-8837Lcussmuykyh analyte qual/semiqual multiple stepRheumatoid factor antibody panel (IgG, IgM, IgA)[facility] start: 46-16-8761Lxtdg panelLipid Panel (Chol, HDL, LDL, Trig., VLDL)[facility] start: 20-76-7355Buqzbqjtlv factor quantitative Rheumatoid factor antibody panel (IgG, IgM, IgA)[facility] start: 10-43-4724YthpuaCardinal Cushing Hospital start: 40-56-8872Gxamrjrts for malignant neoplasm of breastBreast cancer screenAdena Fayette Medical CenterStart: 04-65-8018Wqoruiabi mammography, bilateral (2-view study of each breast),[facility] start: 88-51-7622Wquwbfbxq for osteoporosisDEXA (modify frequency per FRAX score)Bon [facility]: 09-85-7891S3O test (Diabetic or Prediabetic)A1C test (Diabetic or Prediabetic)[place] Start: 66-87-1665IxD8s (Bld) [Mass fraction]A1C test (Diabetic or Prediabetic) [place], [place]Start: 92-09-1665QKG testingTSH testingHal[place], [place] Start: 83-54-2747Wqfxlltebkfgwr of varicella zoster vaccineZoster (Shingles) Vaccine (1 of 2)Bsmark SystemStart: 68-32-4183Gyerpu cancer screen Breast cancer screenHal[place], KYStart: 78-06-0853Zbklstmzd for malignant neoplasm of breastBreast cancer screenBON SECMercy Health Urbana Hospitalart: 08-30-2009 Screening for malignant neoplasm of lungLow dose CT lung screeningBON [facility] Centerart: 41-30-2271Plirzaam Vaccine (1 of 2)Shingles Vaccine (1 of 2) [facility] CenterStart: 10-06-2829Cmutcs vaccine hzv live for subcutaneous useZOSTER (SHINGLES) VACCINE (1 of 2)[facility] CenterStart: 31-78-3454Zobcrpvtjsh COLORECTAL CANCER SCREENING DISCUSSIONOSBethesda North Hospitaltart: 08-30-2004 Screening for malignant neoplasm of colonAdena Fayette Medical CenterStart: 28-28-8740Clxohrz lipid profileLIPID SCREENINGOSBethesda North Hospitaltart: 10-01-6685Wwrhs panelLIPID SCREENINGOSMary Rutan Hospital CenterStart: 74-07-5825Iqiiltwhp for malignant neoplasm of breastOSMary Rutan Hospital CenterStart: 65-06-8084Gfhsbtyfu mammographyMAMMOGRAM SCREENING DISCUSSIONOSMary Rutan Hospital CenterStart: 25-41-3869Wcpeikicc for malignant neoplasm of cervixBON [facility] Start: 70-65-6430Ogipetzl cancer screenCervical cancer [facility]: 47-36-3432Rebptfshz for malignant neoplasm of cervixOSMary Rutan Hospital CenterStart: 86-91-4681Nftuqjhwo B Vaccine (1 of 3 - Risk 3-dose series) Hepatitis B Vaccine (1 of 3 - Risk 3-dose series)[facility]: 48-82-3381Jdgab diphtheria, tetanus and acellular pertussis (DTaP) vaccination TDAP (ADULT)[facility] Hospitaltart: 25-54-6576Weczd BMI Follow Up Plan Adult BMI Follow Up PlanAtrium Health Huntersvilletart: 82-98-9087Nhyytkpd foot examinationDiabetic Foot ExamProUniversity Hospitals Ahuja Medical Centertart: 07-25-2337Dneklasf microalbuminuria testDiabetic microalbuminuria testAdena Fayette Medical CenterStart: 08-30-1977 Diabetic retinal examDiabetic retinal examAdena Fayette Medical CenterStart: 17-14-7366Ycrzyvac screeningDiabetic retinal examBON [facility]ENTERStart: 63-18-9242Dgictrtha C screeningHepatitis C screenWELLMONT HEALTH SYSTEMStart: 06-35-6823Fkixmji vaccinationTETANUSOSBethesda North Hospitaltart: 57-14-1253Tnahr screening for proteinDiabetic microalbuminuria testAdena Fayette Medical CenterStart: 60-44-6587NZK screenHIV screenMercy Health St. Elizabeth Youngstown Hospitalart: 22-74-1975XCJ screeningWood County Hospitalart: 57-56-8909GTOCD-19 Vaccine (1)COVID-19 Vaccine (1)[facility] Medical CenterSthampton: 08-30-1970 [object Object]Diabetic foot examKeenan Private Hospital, KYStart: 58-84-0916Xipgesom foot examinationDiabetic foot examKeenan Private Hospital, KYStart: 69-51-8601Tfsmfpoi retinal examDiabetic retinal examAdena Fayette Medical CenterStart: 20-54-3374QFFGNTYSDUOW VACCINE SERIES (1 - PCV)PNEUMOCOCCAL VACCINE SERIES (1 - PCV)[facility] Hospitaltart: 31-54-4492FSAXA-19 Vaccine (1)COVID-19 Vaccine (1)[facility] Start: 78-11-9953KABVS-19 VACCINE (#1)COVID-19 VACCINE (#1)[facility] Hospitaltart: 15-77-8481Elgmcqka screeningDiabetic Ophthalmology ExamProMercy Health St. [facility] SystemStart: 93-36-1472Ksxiwtjzn C antibody, confirmatory testHEPATITIS C VIRUS SCREENINGJ.W. Ruby Memorial Hospitaltart: 67-74-1647Zwaywaecr C screen Hepatitis C screenKeenan Private Hospital, Memorial Medical Centerart: 89-56-9140Bapivlqif C screening [facility]: 29-04-5919Ybhwjra stimulating hormone measurementTSSt. John of God Hospitaltart: 11-70-5832Xmccvdh CounselingTobacco Counseling [facility] County HospitalAcapellaAcapella Respiratory Care Routine Every 1hr while awake until discontinued starting 03/17/2021[facility] Program[facility] Phone: comment on above:Every 1hr while awake until discontinued starting 1AcapellaAcapella Respiratory Care Routine TID until discontinued starting 04/22/2019[facility] [employer] Phone: comment on above:TID until discontinued starting 04/22/2019AcapellaAcapella Respiratory Care Routine TID until discontinued starting 08/06/2024on [facility] VA Medical Centerment on above:TID until discontinued starting 08/06/2024asic metabolic 2000 panel - Serum or Plasma Basic Metabolic Panel Lab Routine Daily until discontinued starting 04/24/2019, 3 [employer] Work Phone: comment on above:Daily until discontinued starting 04/24/2019, 3 completedBasic Metabolic Panel w/ Reflex to MGBasic Metabolic Panel w/ Reflex to MG Lab Routine Every Other Day until discontinued starting 07/25/2019, 1 completedBig Stage, OnAsset IntelligenceComment on above:Every Other Day until discontinued starting 07/25/2019, 1 completedBasic Metabolic Panel w/ Reflex to MGBasic Metabolic Panel w/ Reflex to MG Lab Routine Daily until discontinued starting 03/18/2021, 2 completed[employer] Work Phone: comment on above:Daily until discontinued starting 03/18/2021, 2 completed End: 93-78-2787Qezzy Metabolic Panel w/ Reflex to MGBasic Metabolic Panel w/ Reflex to MG Lab Routine Daily for 9 Days starting 08/07/2024 until 08/15/2024, 4 completedBon Secours Cherrington HospitalSuddenValuesComment on above:Daily for 9 Days starting 08/07/2024 until 08/15/2024, 4 completedBasophils [#/volume] in Blood by Automated [facility] CampusBasophils/100 leukocytes in Blood by Automated [facility] CampusBedside Glucose *Place/Obtain serum glucose if >500 per glucometer.Bedside Glucose *Place/Obtain serum glucose if >500 per glucometer. Point of Care Testing Routine 4X Daily (AC and at bedtime) until discontinued starting 12/30/2024, 6 completedPronanoTherics Health SystemComment on above:4X Daily (AC and at bedtime) until discontinued starting 12/30/2024, 6 completedBIPALocalMed Work Phone: comment on above:Every 4hr until discontinued starting 07/22/2019Every 4hr until discontinued starting 04/22/2019 End: 35-24-5150Guzqjwwropjfcpa and angiography procedure details panelDiagnostic Cardiac Lease Picker Procedure Cardiac Cath Routine One Time for 1 Occurrences starting 03/17/2020 until 03/17/2020[facility]27 bards, OnAsset IntelligenceComment on above:One Time for 1 Occurrences starting 03/17/2020 until 03/17/2020CBC auto differential [employer] Work Phone: comment on above:Every Other Day until discontinued starting 07/24/2019, 1 completedDaily until discontinued starting 04/24/2019, 3 completedCBC W Auto Differential panel - BloodCBC Auto Differential Lab STAT Daily until discontinued starting 03/18/2021, 2 WindwardTuscarawas HospitalSAJE Pharma Work Phone: comment on above:Daily until discontinued starting 03/18/2021, 2 completed End: 06-04-9758ESG W Auto Differential panel - BloodCBC auto differential Lab Routine Daily for 9 Days starting 08/06/2024 until 08/14/2024, 5 completedBon Secours Digital CaddiesComment on above:Daily for 9 Days starting 08/06/2024 until 08/14/2024, 5 completedCBC W Auto Differential panel - BloodCBC auto differential Lab Routine Lab max of 3 days, Daily, for lab use only until discontinued starting 12/31/2024, 2 [facility] HospitalWilmar Industries [facility] HospitalComment on above:Lab max of 3 days, Daily, for lab use only until discontinued starting 12/31/2024, 2 completedComprehensive metabolic 2000 panel - Serum or Plasma Comprehensive metabolic panel Lab Routine Lab max of 3 days, Daily, for lab use only until discontinued starting 12/31/2024, 2 [facility] [facility] Comment on above:Lab max of 3 days, Daily, for lab use only until discontinued starting 12/31/2024, 2 completedCOVID-19[facility] Programeter- [employer], [place] End: 98-48-3807PHNBP-19, PCRCOVID-19, PCR Lab Routine One Time for 1 Occurrences starting 03/13/2020 until 03/13/2020[facility] [place], [place] on [place]:One Time for 1 Occurrences starting 03/13/2020 until 03/13/2020CTA HEAD NECK W CONTRASTCTA HEAD NECK W CONTRAST Imaging STAT 04/12/2019 1:24 PM [employer] Work Phone: End: 41-95-4387Abtozza, Blood 1Culture, Blood 1 Microbiology STAT One Time for 1 Occurrences starting 10/06/2019 until 10/06/2019[facility], [place] on [place]:One Time for 1 Occurrences starting 10/06/2019 until 10/06/2019Culture, Blood 1Culture, Blood 1 Microbiology STAT 10/06/2019 10:00 [facility] [place]Culture, Blood 1Culture, Blood 1 Microbiology STAT 03/17/2021 9:00 PM [facility] Work Phone: culture, Blood 1Culture, Blood 1 Microbiology STAT 08/06/2024 3:[facility] End: 76-27-3544Ihlmywu, Blood 2Culture, Blood 2 Microbiology STAT One Time for 1 Occurrences starting 10/06/2019 until 10/06/2019[facility] above:One Time for 1 Occurrences starting 10/06/2019 until 10/06/2019Culture, Blood 2Culture, Blood 2 Microbiology STAT 10/06/2019 12:40 PM [facility], [place]Culture, Blood 2Culture, Blood 2 Microbiology STAT 08/06/2024 4:50 PM EDT [facility] Programeter End: 63-35-2440Edfbvof, RespiratoryCulture, Respiratory Microbiology Routine One Time for 1 Occurrences starting 07/18/2019 until 07/18/2019[facility] Comment on above:One Time for 1 Occurrences starting 07/18/2019 until 07/18/2019 End: 87-15-8216Uwfjwqs, UrineCulture, Urine Microbiology Routine Once for 1 Occurrences starting 07/17/2019 until 07/17/2019[facility] on above:Once for 1 Occurrences starting 07/17/2019 until 07/17/2019Culture, Urine [facility], [place] End: 85-09-0542Azpdiog, UrineCulture, Urine Microbiology Routine Once for 1 Occurrences starting 11/16/2019 until 11/16/2019[facility] on above:Once for 1 Occurrences starting 11/16/2019 until 11/16/2019 End: 81-10-1104Jwziwzc, UrineCulture, Urine Microbiology Routine Once for 1 Occurrences starting 02/12/2020 until 02/12/2020[facility] on above:Once for 1 Occurrences starting 02/12/2020 until 02/12/2020Culture, Wound (with Gram Stain)Culture, Wound (with Gram Stain) Microbiology Routine 09/03/2024 11:35 AM EDTBon Media Machines Work Phone: End: 14-52-9121Ffvm Screen, PainHelpa Work Phone: comment on above:1 Occurrences starting 08/13/2022 until 08/13/2022EKG 12 LeadDigital Caddies- [place], KYEKG 12 LeadEKG 12 Lead ECG STAT 02/09/2021 11:32 AM [employer] Work Phone: eosinophils/100 leukocytes in Blood by Automated count [facility] CenterErythrocyte distribution width [Ratio] by Automated [facility] CampusErythrocytes [#/volume] in Blood [facility] End: 62-68-8153JdoriraompwbebkdfdhswfkfceDRV GI Routine Gastrointestinal hemorrhage, unspecified gastrointestinal hemorrhage type Gastric ulcer without hemorrhage or perforation, unspecified chronicity 1 Occurrences starting 01/14/2024 until 01/13/2025[facility] Work Phone: Comment on above:1 Occurrences starting 01/14/2024 until 01/13/2025 End: 73-96-3895PxW2g (Bld) [Mass fraction]Hemoglobin A1C Lab Routine Once for 1 Occurrences starting 07/24/2019 until 07/24/2019[place] [place], [place]:Once for 1 Occurrences starting 07/24/2019 until 07/24/2019HbA1c (Bld) [Mass fraction]Hemoglobin A1C Lab Routine 07/24/2019 4:42 AM EDTMLocalMed- [employer], [place]Heated/ Humidified High Flow Nasal CannulaHeated/ Humidified High Flow Nasal Cannula Respiratory Care Routine Every 4hr until discontinued starting 07/17/2019, 1 completedMer27 [place], [place]Comment on [place]:Every 4hr until discontinued starting 07/17/2019, 1 completedHematocrit [Volume Fraction] of [facility]Hemoglobin [Mass/volume] in [facility] End: 59-62-9041Lnklwbejny A1c/Hemoglobin.total in BloodBON [employer] Work Phone: comment on above:1 Occurrences starting 07/26/2022 until 07/26/2022HHN TreatmentHHN Treatment Respiratory Care Routine Daily until discontinued starting 07/18/2019[facility], [place]Comment on above:Daily until discontinued starting 07/18/2019Initiate Oxygen Therapy [facility] Programeter Work Phone: comment on above:Daily until discontinued starting 07/18/2019Daily until discontinued starting 04/21/2019 End: 99-18-9898Hbodaqtl RT ProtocolInitiate RT Protocol Respiratory Care Routine Continuous until discontinued starting 07/22/2019[facility], [place]Comment on above:Continuous until discontinued starting 07/22/2019 End: 95-64-5167Vjovewsmnznv pulse oximetryPulse Oximetry Spot Check Respiratory Care Routine One Time for 1 Occurrences starting 03/17/2020 until 03/17/2020 [facility], [place]Comment on above:One Time for 1 Occurrences starting 03/17/2020 until 03/17/2020Leukocytes [#/volume] corrected for nucleated erythrocytes in Blood by Automated [facility] Leukocytes [#/volume] in BloodAdena [facility] Medical [facility] End: 58-75-8986Qriuw panel - fastingLipid panel - fasting Lab Routine Tomorrow AM for 1 Occurrences starting 03/18/2020 until 03/18/2020[facility] [place] Comment on above:Tomorrow AM for 1 Occurrences starting 03/18/2020 until 03/18/2020Lipid panel - fastingLipid panel - fasting Lab Routine 03/18/2020 5:20 AM [facility], CARLOSLymphocytes [#/volume] in Blood by Automated [facility] CampusLymphocytes/100 leukocytes in Blood by Automated [facility] CampusMagnesium [Mass/volume] in Serum or PlasmaMagnesium Lab Routine Lab max of 3 days, Daily, for lab use only until discontinued starting 12/31/2024, 2 completedJoint Township District Memorial Hospital Health SystemComment on above:Lab max of 3 days, Daily, for lab use only until discontinued starting 12/31/2024, 2 completedMCH [Entitic mass] by Automated [facility] CampusMCHC [Mass/volume] by Automated [facility] CampusMCV [Entitic volume] by Automated [facility] End: 43-69-8903Dwuxhuhobcxc / Creatinine Urine RatioMicroalbumin / Creatinine Urine Ratio Lab Routine Hyperglycemia 1 Occurrences starting 07/26/2022 until 3BON [employer] Work Phone: comment on above:1 Occurrences starting 07/26/2022 until 07/26/2022Monocytes [#/volume] in Blood by Automated [facility] CampusMonocytes/100 leukocytes in Blood by Automated [facility] End: 93-98-4712XZEB DNA Probe, NasalMRSA DNA Probe, Nasal Microbiology Routine Daily for 2 Occurrences starting 04/25/2019 until 04/26/2019, 1 [employer] Work Phone: comment on above:Daily for 2 Occurrences starting 04/25/2019 until 04/26/2019, 1 completedNasal Cannula OxygenDigital [place]addies- [place] Comment on above:Daily until discontinued starting 06/15/2019, 2 completedDaily until discontinued starting 03/13/2020Daily until discontinued starting 03/18/2020Nasal Cannula OxygenNasal Cannula Oxygen Respiratory Care STAT Daily until discontinued starting 03/17/2021[employer] Work Phone: Comment on above:Daily until discontinued starting 03/17/2021Nasal Cannula OxygenNasal Cannula Oxygen Respiratory Care Routine Daily until discontinued starting 5Bon Media MachinesComment on above:Daily until discontinued starting 08/13/2024Neutrophils [#/volume] in Blood by Automated [facility] CampusNeutrophils/100 leukocytes in Blood by Automated [facility] CampusNucleated erythrocytes [Presence] in Blood by Automated [facility] CampusOxygen Therapy - Maintain SpO2: 90% or greaterOxygen Therapy - Maintain SpO2: 90% or greater Respiratory Care STAT As Needed until discontinued starting 12/30/2024[facility] Work Phone: Comment on above:As Needed until discontinued starting 12/30/2024Oxygen Therapy - Maintain SpO2: 90%; *MARBLE COPER Guidelines for O2: Yes; Document: \[email or web address]\epic\EPIC_Reference\Orders\Respiratory Care Guidelines\CPG Oxygen 2022.pdfOxygen Therapy - Maintain SpO2: 90%; *MARBLE COPER Guidelines for O2: Yes; Document: \[email or web address]\epi c\EPIC_Reference\Orders\Respiratory Care Guidelines\CPG Oxygen 2022.pdf Respiratory Care Routine AsNeeded until discontinued starting 12/30/2024 [facility] Work Phone: Comment on above:As Needed until discontinued starting 12/30/2024Oxygen therapy [Minimum Data Set][employer] [facility]- [place], [employer] IntelligenceComasp[employer] [facility] on above:Daily until discontinued starting 03/17/2020Daily until discontinued starting 03/18/2020Oxygen therapy [Minimum Data Set]Initiate Oxygen Therapy Protocol Respiratory Care Routine Daily until discontinued starting 08/06/2024 [facility]inesSelect [facility] on above:Daily until discontinued starting 08/06/2024Oxygen therapy [Minimum Data Set]Initiate Oxygen Therapy Protocol Respiratory Care Routine Daily until discontinued starting 08/12/2024on Media MachinesSelect Specialty Hospital on above:Daily until discontinued starting 08/12/2024 End: 00-45-4684Xakk Review, SmearBon Media MachinesSelect Specialty Hospital on above:One Time for 1 Occurrences starting 08/15/2024 until 08/15/2024Patient EducationKnow your [facility] Work Phone: Patient referralFulton County Health Center Ctr Work Phone: Platelet mean volume [Entitic volume] in Blood by Automated countAdena Pike Medical CenterPlatelets [#/volume] in Blood [facility] CenterPOCT glucoseVeterans Health Administration Health Work Phone: comment on above:4X Daily (AC & HS) until discontinued starting 03/18/2020As Needed until discontinued starting 03/18/2020As Needed until discontinued starting 07/18/20194X Daily (AC & HS) until discontinued starting 07/22/20194X Daily (AC & HS) until discontinued starting 04/24/2019As Needed until discontinued starting 04/24/2019Positive Expiratory Pressure TherapyPositive Expiratory Pressure Therapy Respiratory Care Routine TID until discontinued starting 5Bon IGIGI on above:TID until discontinued starting 08/06/2024 End: 39-34-5335UtcmxzwammusqYPN [employer] Phone: comment on above:1 Occurrences starting 08/13/2022 until 1711Wuqinpo-RRWRpazcht-MXY Lab STAT As Needed until discontinued starting 03/17/2020[facility] [employer], [place]Comment [place] Needed until discontinued starting 03/17/2020Pulse oximetry, continuousTuscarawas HospitalSasken Communication Technologies Phone: comment on above:Every 4hr until discontinued starting 07/18/2019Every 4hr until discontinued starting 04/22/2019Respiratory care evaluation onlyRespiratory care evaluation only Respiratory Care Routine As Needed until discontinued starting 07/22/2019[facility] [employer], [place]Comment [place] Needed until discontinued starting 07/22/2019 End: 38-59-3192Tjhqkzjjgsv pathogens DNA and RNA panel - Nasopharynx by JANIA with non-probe detectionResp Pathogens Panel/SARS CoV-2 Microbiology Routine Once for 1 Occurrences starting 12/30/2024 until 12/30/2024[facility] HospitalXceedium [facility] Comment on above:Once for 1 Occurrences starting 12/30/2024 until 12/30/2024 End: 78-29-5483SETE-CoV-2 (COVID-19) RNA [Presence] in Respiratory specimen by JANIA with probe detectionSARS/FLU A+B/RSV by NAAT/Molecular (M4RT Collection Tube) Microbiology STAT STAT for 1 Occurrences starting 12/30/2024 until 12/30/2024J.[facility]. Ruby Memorial HospitalVIPerks [facility] Rapids HospitalComment on above:STAT for 1 Occurrences starting 12/30/2024 until 12/30/2024 End: 96-26-5981Ujpnzh gram stainSputum gram stain Microbiology Routine One Time for 1 Occurrences starting 07/18/2019 until 07/18/2019[facility] [employer] [place] Comment on above:One Time for 1 Occurrences starting 07/18/2019 until 07/18/2019 End: 49-70-0828JGVGKGAW PATHOLOGY REPORTSURGICAL PATHOLOGY REPORT Lab Routine Once for 1 Occurrences starting 08/15/2024 until 5Bon OhiohealthComment on above:Once for 1 Occurrences starting 08/15/2024 until 08/15/2024 End: 92-03-4921Nomcqouzaz, reflex to microscopicUrinalysis, reflex to microscopic Lab STAT One Time for 1 Occurrences starting 03/21/2020 until 03/02[facility], [place]Comment on above:One Time for 1 Occurrences starting 03/21/2020 until 03/21/2020 Immunizations Immunization DateImmunizationNotesCare MixqchnlJrdfrqji93-18-3610akugrob toxoid, reduced diphtheria toxoid, and acellular pertussis vaccine, adsorbedCrystal Genevieve [facility] HospitalAawwuu45-25-2403sbojoqnoyutt polysaccharide vaccine, 23 valentAimee [facility] HospitalRlizrs90-15-5927vfgusvsxryzv vaccine, unspecified formulationJustin Andes DO Work Phone: [facility] Work Phone: [phone]486aklqpvxyl, seasonal, injectable; Translations: [Fluarix Quadravalent]Vahid [facility] Work Phone: comment on above:Note: Patient tolerated well. No signs or symptoms of adverse reactions. Patient waited in facilityfor 15 minutes.06-30-1103mnoabwdkz, injectable, quadrivalent, preservative freeAimee [facility] Work Phone: [phone]zzqlyz virus vaccine, unspecified formulationSmicah Pickett MD Work Phone: Z [facility] HospitalJynueb37-35-3820qtppjedcv virus vaccine, unspecified formulationSmaria elena Rodriguez MD Work Phone: [facility] SYSTEMDAKDML91-13-2266cwoeofszd, seasonal, injectableCrystal Genevieve [facility]03-09-2019influenza virus vaccine, unspecified formulationCrystal Genevieve [facility] 63-53-2707tdslsxjax, injectable, quadrivalent, preservative freeCrystal Genevieve [facility]03-09-2019Influenza, Quadv, 6 mo and older, IM, PF (Flulaval, Fluarix)VahidBlanchard Valley Health System Bluffton HospitalBikitu54-51-2232jfpfjylvlaja conjugate vaccine, 13 [facility], [place]27-73-4961faegtrjwciaw conjugate vaccine, 7 [facility] [place] Work Phone: [phone]naeqi virus vaccine, unspecified formulationSmaria elena Rodriguez MD Work Phone: bon [facility] Work Phone: [phone]tbucd, seasonal, injectablemee [facility] Work Phone: [phone]ogmga, injectable, quadrivalent, preservative free; Translations: [FLU VAC NO PRSV 4 OTONIEL 3 YRS+][facility] 1745366-17-5005iyraubcch, seasonal, injectable, preservative freeWestchester Medical Center [phone] ADMIN; Translations: [IMMUNIZATION ADMIN]Zach [facility] 1394046-58-8153dvtaxwwnx virus vaccine, unspecified formulationP[facility] Work Phone: pCorey Hospital SystemComment on above:Note: Influenza (Adult)89-03-5756dnebyziao, high dose seasonal, preservative-freeHighland District Hospital Work Phone: Comment on above:Note: Influenza (Adult)01-07-2017 tetanus toxoid, reduced diphtheria toxoid, and acellular pertussis vaccine, adsorbedOhioHealth Arthur G.H. Bing, MD, Cancer CenterFsmgrj40-65-4702jolencaoa, injectable, quadrivalent, preservative free; Translations: [FLU VAC NO PRSV 4 OTONIEL 3 YRS+][facility] 1138548-51-1855tbarapjyu, seasonal, injectableWestchester Medical Center 1766217-57-0214NUGFJQOFUOZV ADMIN; Translations: [IMMUNIZATION ADMIN]Zach GrimaldoCardinal Cushing Hospital 1878222-88-6147rdhyyhjvq virus vaccine, unspecified formulationPrisma Health Tuomey Hospitalen [facility] Work Phone: [facility] Work Phone: comment on above:Note: Influenza (Adult)02-10-2015 influenza, high dose seasonal, preservative-freeHighland District Hospital Work Phone: comment on above:Note: Influenza (Adult)12-30-2013 influenza virus vaccine, unspecified formulationOhioHealth Arthur G.[facility]. [facility], Cancer Center 59-21-4223hpkcbfznn, seasonal, injectableCrystal Genevieve [facility]12-17-2009novel cimrargmf-H0U2-37, preservative-free, injectableStefan Jennifer MARTINEZ Work Phone: [facility] Work Phone: Payers DatePayer CategoryPayerPolicy [id number]-pay2022Medicaid .[id number] 2022Medicaid [facility] Member Subscriber Plan / Payer (Effective 2022-Present) Name: Jonatan Olivarez Alan Relation to Subscriber: Self Name: Jonatan Olivarez Payer ID: [id number] (NAIC) Type: Not on file Address: [address] [id number] [id number] 1.2.840.156371.1.13.239.2.7.3.303671.98564-02-9737Bihzypt [id number] 2.0.1.564715.3.84895-86-7098Yinnypi [id number] 2.16840.1.204526.3.92153-18-6334YbwsprkALABADSBR ADVANTAGE PARAMOUNT ADVANTAGE xxxxxxxxxxx 2017- [phone] [address] [place] , [place] [address]odhnahrwmwe 1.2.840.976334.1.13.239.2.7.3.713245.75724-87-5121Wjxyusj PARAMOUNT ADVANTAGE PARAMOUNT ADVANTAGE [id number] 2017- [phone] [address] [place], [place] [id number] 1.2.840.731900.1.13.239.2.7.3.947375.71076-42-3403EcjzjloPUBT 2.0.1.61744[id number] 2.0.1.532056.3.579.2.196 [id number] 2.0.1.071864.3.57[id number] 2.0.1.225578.3.57[id number] 2.0.1.723208.3.57[id number] 2.0.1.126505.3.57[id number] 2.840.1.015191.3.57[id number] 2.840.1.043115.3.57[id number] 2.16.840.1.067247.3.57[id number] 2.16.840.1.583828.3.57[id number] 2.16.840.1.265962.3.57[id number] 2.16.840.1.687139.3.57[id number] 2.16.840.1.666933.3.57[id number] 2.16.840.1.814892.3.57[id number] 2.16.840.1.710161.3.57[id number] 2.16.840.1.819474.3.57[id number] 2.16.840.1.185752.3.57[id number] 2.16.840.1.134972.3.57[id number] 2.16.840.1.837504.3.57[id number] 2.16.840.1.312053.3.57[id number] 2.16.840.1.381765.3.57[id number] 2.16.840.1.844960.3.57[id number] 2.16.840.1.459027.3.57[id number] 2.16.840.1.142183.3.57[id number] 2.16.840.1.200546.3.57[id number] 2.16.840.1.297100.3.57[id number] 2.16.840.1.576636.3.579.[id number] 2.16.840.1.177492.3.57[id number] 2.16.840.1.083831.3.57[id number] 2.16.840.1.378055.3.57[id number] 2.16.840.1.506212.3.57[id number] 2.16.840.1.507018.3.57[id number] 2.16.840.1.863548.3.57[id number] 1.2.840.210899.1.13.23[id number] 2.16.840.1.015306.3.579.2.531 Social History DateTypeDetailFacilityStart: 11-14-0581Deogh tobacco smokerCardinal Cushing Hospital start: 01-13-2019 End: 36-08-0281Aoqodyx every day smokerHealth [facility] AssertionFamily problems (finding)[facility] Work Phone: assertionGender identity finding (finding)[facility] Work Phone: assertionFinding of sexual orientation (finding)[facility] Work Phone: assertionTobacco user (finding)[facility] Work Phone: Tobacco smoking statusUnknown if ever smokedHealth [facility] Work Phone: start: 73-11-3655YhyplffeiWMXWELLMONT HEALTH SYSTEM AssertionAlcohol consumption screening (procedure)[facility] Work Phone: start: 40-40-0014Llyotoo of tobacco useCigarette SmokerMercer County Community Hospital: 01-13-2019 End: 29-26-6343Afsxjmwcyc smoked current (pack per day) - ReportedNORTHERN COCHISE COMMUNITY [facility]PITAL Chekkt.com [facility]ITALStart: 01-13-2019 End: 24-92-7956Aejjmud intakeNoSAINT ELIZABETH'S MEDICAL CENTERLocal Magnet [facility] HOSPITALStart: 62-16-9881Rlj Assigned At BirthNot on fileMercer County Community Hospital: 02-23-2019 End: 64-75-4312Flirghb intakeCurrent non-drinker of alcohol (finding)[facility] HospitalAshwiniingle person (finding)[facility] Work Phone: assertionEmotional stress (finding)[facility] Work Phone: Start: 09-03-2019 End: 04-98-9902Nyzipks smoking status NHISCurrent some day smokerA[facility] Exposure to SARS-CoV-2 (event)Unable to assessWake Forest Baptist Health [facility] Exposure to pollution (event)[facility] Work Phone: Start: 10-21-2019 End: 15-18-1619Oocslur use and exposureNever usedMercer County Community Hospital: 06-16-2021 End: 83-84-1282Lmduorke to SARS-CoV-2 (event)Not sureAdena Fayette [facility] Center- [place], [place] AssertionSupport system deficit (finding)[facility] Work Phone: assertionFamily illness (situation)[facility] Work Phone: assertionProblem situation relating to social and personal history (finding)[facility] Work Phone: Start: 02-21-2021 End: 54-34-2561Lsnhdsu smoking status NHISLight tobacco smokerVeterans Health Administration Sinobpo Phone: start: 02-21-2021 End: 26-59-7340Nctmppo Comment1 cigarette every 1-2 daysVeterans Health Administration Sinobpo Phone: start: 76-08-6670Xfcxawi SDOH Ocwhqvgam8Epiju Programeter Work Phone: start: 24-56-4877Lkxoffk SDOH Food Wvyuo1Sucpd Programeter Work Phone: start: 07-19-2021 End: 59-93-6493Pifcdag intakeLifetime non-drinker (finding)[facility] Ruby Memorial Hospitaltart: 52-53-1808Swvvxex SDOH Transport Non-Lvc37[employer] Work Phone: start: 29-86-6429Hahksie SDOH Housing Homeless Last Gjjc0PAP [facility] MED[facility] CENTERGeneral Dynamics Work Phone: (I/We) worried whether (my/our) food would run out before (I/we) got money to buy more.Never nor-lea general hospitalBON NearDeskStart: 01-19-2024 End: 99-25-9068Amncizs smoking status NHISSmoker (finding)[facility] Hospitaltart: 68-91-9366Jdo Assigned At [facility] HospitalHa the electric, gas, oil, or water company threatened to shut off services in your home in past 12MoNoProMercy Health St. [facility] Hospital SystemAre you now , , , , never or living with a partner? DivorcedProUab Hospital Highlands Health SystemHow often to you have a drink containing alcohol? NeverProUab Hospital Highlands Health SystemHow hard is it for you to pay for the very basics like food, housing, medical care, and heatingHardProUab Hospital Highlands Health SystemDo you feel stress - tense, restless, nervous, or anxious, or unable to sleep at night because yourmind is troubled all the time - these days [OSQ]Not at allJoint Township District Memorial Hospital Programeter SystemStart: 88-34-7074Kpuuowp Commentneeds a nicotine patch upon arrival [facility]ma HealthAdhezion Biomedicaltart: 05-11-2012 End: 12-92-0512LrmQhpowu (finding)[facility] HealthMetaCure [facility] HospitalHas the Spiralcat, gas, oil, or water company threatened to shut off services in your home in past 12Mo YesJoint Township District Memorial Hospital Health SystemHow often to you have a drink containing alcohol? Monthly or lessProMercy Health St. [facility] System(I/We) worried whether (my/our) food would run out before (I/we) got money to buy more.Sometimes trueBon OhiohealthNEGATED: Highlighted rowAssertionExposure to pollution (event)[facility] Work Phone: NEGATED: Highlighted rowAssertionCurrent drinker of alcohol (finding)[facility] Work Phone: NEGATED: Highlighted rowAssertionFinding relating to drug misuse behavior (finding)[facility] Work Phone: NEGATED: Highlighted rowAssertionIllicit drug use (finding)[facility] Work Phone: NEGATED: Highlighted rowAssertionMisuse of prescription only drugs (finding)[facility] Work Phone: NEGATED: Highlighted rowAssertion[facility] Work Phone: NEGATED: Highlighted rowAssertionTobacco user (finding)[facility] Work Phone: Medical Equipment Procedure CodeEquipment CodeEquipment Original TextEquipment IdentifierDates Lancets Thin [id number]: 37-99-8703Nzto Metrix Blood Glucose Test In Vitro [id number]: [id number]: 12-14-2016 End: 87-79-0207bbm as directed TO TEST BLOOD SUGAR three times a [id number] Start: 08-26-2014 End: 28-29-6397gpk as directed TO TEST BLOOD SUGAR three times a [id number] Start: 07-25-2019 End: 96-77-5190ufn as directed TO TEST BLOOD SUGAR three times a [id number] Start: 03-19-2020 End: 28-97-9268Gpxjskjc sufficient amount for indicated testing frequency plus additional to accommodate PRN testing needs. Dispense all needed supplies to include: monitor, strips, lancing device, lancets, controlsolutions, alcohol swabs.[id number]: 47-87-3538Bprs 3 times a day & as needed for symptoms of irregular blood glucose. Dispense sufficient amount for indicated testing frequency plus additional to accommodate PRN testing needs.[id number]: 03-23-2021 End: 98-49-1592Qxeu 3 times a day & as needed for symptoms of irregular blood glucose. Dispense sufficient amount for indicated testing frequency plus additional to accommodate PRN testing needs.[id number]: 72-53-6870Udrxsr test blood sugar 1 times daily and prn for symptoms of hyperglycemia or hypoglycemia.[id number]: 77-70-5770Ymi Sft Tis 50cmx.49mm 16/8mm - [id number] - [id number]_ifvZalpw: 63-77-1735Arelfzh on above:Description: hemagard knitted collagen coated knitted polyester vascular prosthesis. Aorta bifemoralGft Hep Rr T6mm 60cm Rs X70cm - [id number] - [id number]_rco Start: 23-08-9880Xjbcrok on above:Description: LEFT FEMORAL-POPLITEAL BYPASS1 strip by other route as needed for high blood sugar.[id number]: 07-16-2024 Goals DatePatient GoalDesired Activity/StatePersonal health goalPersonal health goal Comment on above: Evaluation of progress towards goal: patient will go to SNF for therapyPersonal health goalComment on above: Evaluation of progress towards goal: Patient plans to Home and resume Home Health with [facility] (RN/PT/OT). She is agreeable to [facility] and prefers to go to [facility] as it is closer to home. Personal health goalComment on above: Evaluation of progress towards goal: Patient plans to Home and resume Home Health with [facility] (RN/PT/OT). She states that she goes to [facility] [place]. Functional Status HvhyFdcmrvefvfWefzpgLifajiuk27-32-2106Swesyuottw statusPatient at Baseline [facility] Work Phone: [facility] Mental Status Gmdx[id number] functionCognitive Status [facility] Work Phone: Cognitive functionCognitive functioning was normal Cognitive function finding (finding)[facility]: [facility] Clinical Notes 04-12-2019 to 01-01-2025 Note Date & [id number] Nurse Note* Donna Napoles RN - 01/01/2025 3:55 PM EDT PTN called and stated that transportation is now being delayed d/t a crew shuffle and will be in approximately 60-90 minutes now. [facility]10-03-[facility] Nurse Note* Donna Napoles RN - [...] patient. Report was called to Leena Blake [phone] and given to Marquita. Requested to have CRF faxed to [phone]. * Corrine Mcintosh RN - 01/01/2025 12:04 AM EDT Hand Model in to talk to patient about potassium [...] and patient refused to have that done. Hand Model explained to patient why all were ordered [...] Pt continues to refuse. [facility] Nurse Note* Donna Napoles RN - 01/01/2025 12:48 PM EDT Patient discharge orders were placed and reviewed. PIVs removed. Patient's family notified of discharge at this time. Transportation with PTN was arranged and ETA is set for 1600. PTN paperwork completed and sent via current process. IP mobile printed. CRF printed to be sent with patient. Report was called to Leena Blake [phone] and given to Marquita. Requested to have CRF faxed to [phone]. [facility]10-03-[facility] Plan of care note* Plan of [...] on patient's door 9. Provide patient/ patient patient portal representative with isolation education. Outcome: Completed Problem: [...] supplement as ordered 13. Collaborate with clinical web graphic designer 14. Include patient/ patient's patient portal representative in decisions related to nutrition Outcome: [...] Description: INTERVENTIONS: 1. Encourage patient or legal patient portal representative to report early pain and ask [...] per policy 9. Teach patient or legal patient portal representative interventions for comforting Outcome: Completed Problem: [...] at the bedside 7. Instruct patient/ patient patient portal representative about use of safety devices 8. Include patient/ patient patient portal representative in decisions related to safety Outcome: [...] hygiene technique. 7. Identify and instruct patient/patient patient portal representative in use of appropriate isolation precautionsfor identified infection/symptoms. 8. Provide and discuss with patient/patient patient portal representative on educational MDRO sheet. 9. Encourage and monitor nutritional status daily and consult web graphic designer if indicated. 10. Implement neutropenic guidelines as needed. Outcome: Completed Problem: Knowledge Deficit Goal: Patient/patient patient portal representative demonstrates understanding of disease process, treatment [...] Score of =/> 25 or indicated by [facility] Assessment Goal: Patient should be free from fall Description: Interventions: 1. [place] to environment 2. Hourly rounds addressing the [...] non-skid footwear 11. Teach patient and patient patient portal representative to maintain environment for safety and [...] (cane, walker) within reach 19. Request patient patient portal representative bring adaptive equipment/mobility aids from home or obtain and provide as needed 20. Consult pharmacy regarding effects of med's affecting mobility, cognition, and alternatives 21. Obtain physician order for PT if risk factors associated with mobility are present 22. Obtain physician order for OT as appropriate 23. Utilize diversional activities 24. Educate patient and patient patient portal representative how to maintain a safe environment during visitationtimes (notify nurse prior to leaving bedside) 25. Consider appropriateness of medical or non-medical claims specialist 26. Set up voiding schedule as appropriate [...] Handoff to next level of care provider (nurse behavioral health care, PCP, home care). 5. Complete follow up [...] Discharge Time-Out or Discharge Final-Check. Outcome: Completed [facility] [id number] Miscellaneous Notes* Plan of Care - Donna [...] on patient's door 9. Provide patient/ patient patient portal representative with isolation education. Outcome: Completed Problem: [...] supplement as ordered 13. Collaborate with clinical web graphic designer 14. Include patient/ patient's patient portal representative in decisions related to nutrition Outcome: [...] Description: INTERVENTIONS: 1. Encourage patient or legal patient portal representative to report early pain and ask [...] per policy 9. Teach patient or legal patient portal representative interventions for comforting Outcome: Completed Problem: [...] at the bedside 7. Instruct patient/ patient patient portal representative about use of safety devices 8. Include patient/ patient patient portal representative in decisions related to safety Outcome: [...] hygiene technique. 7. Identify and instruct patient/patient patient portal representative in use of appropriate isolation precautionsfor identified infection/symptoms. 8. Provide and discuss with patient/patient patient portal representative on educational MDRO sheet. 9. Encourage and monitor nutritional status daily and consult web graphic designer if indicated. 10. Implement neutropenic guidelines as needed. Outcome: Completed Problem: Knowledge Deficit Goal: Patient/patient patient portal representative demonstrates understanding of disease process, treatment [...] be free from fall Description: Interventions: 1. [place] to environment 2. Hourly rounds addressing the [...] non-skid footwear 11. Teach patient and patient patient portal representative to maintain environment for safety and [...] (cane, walker) within reach 19. Request patient patient portal representative bring adaptive equipment/mobility aids from home or obtain and provide as needed 20. Consult pharmacy regarding effects of med's affecting mobility, cognition, and alternatives 21. Obtain physician order for PT if risk factors associated with mobility are present 22. Obtain physician order for OT as appropriate 23. Utilize diversional activities 24. Educate patient and patient patient portal representative how to maintain a safe environment during visitationtimes (notify nurse prior to leaving bedside) 25. Consider appropriateness of medical or non-medical claims specialist 26. Set up voiding schedule as appropriate [...] Handoff to next level of care provider (nurse behavioral health care, PCP, home care). 5. Complete follow up [...] on patient's door 9. Provide patient/ patient patient portal representative with isolation education. Outcome: Progressing Note: [...] supplement as ordered 13. Collaborate with clinical web graphic designer 14. Include patient/ patient's patient portal representative in decisions related to nutrition Outcome: [...] Description: INTERVENTIONS: 1. Encourage patient or legal patient portal representative to report early pain and ask [...] per policy 9. Teach patient or legal patient portal representative interventions for comforting Outcome: Progressing Note: [...] at the bedside 7. Instruct patient/ patient patient portal representative about use of safety devices 8. Include patient/ patient patient portal representative in decisions related to safety Outcome: [...] hygiene technique. 7. Identify and instruct patient/patient patient portal representative in use of appropriate isolation precautionsfor identified infection/symptoms. 8. Provide and discuss with patient/patient patient portal representative on educational MDRO sheet. 9. Encourage and monitor nutritional status daily and consult web graphic designer if indicated. 10. Implement neutropenic guidelines as needed. Outcome: Progressing Note: Evaluation of progress towards goal: IV antibiotics continues for infection. Tolerating meds.Vitals within normal limits Problem: Knowledge Deficit Goal: Patient/patient patient portal representative demonstrates understanding of disease process, treatment [...] towards goal: Patient plans on going to [place] upon discharge. * Discharge Planning Note - Jodee Cook RN - 12/31/2024 12:08 PM EDT 12/31/24 1606 Patient Information Initial Pre-Hospitalization Assessment Completed? In-Progress In-Progress Reason: Attempted assessment: patient unable to participate/Contacts unavailable (patient sleeping, unable to wake up. RN notified. CN called patient's son, no answer. Unable to leave voicemail. CN called [facility], no answer. Voicemail left.) Support System Family Members Discharge Planning Type of Residence group home Care Facility Name [facility] [address] [place] [address] Home Care Services No Income Information Income Information Retired/Pension/Social Security Services Requested Patient expects to be discharged to: SNF Discharge Disposition SNF SNF Name [facility] [address] [place] [address] DISCHARGE PLANNING NOTE CN attempted to complete assessment w/ paitent at bedside. Patient sleeping deeply, unable to arouse. RN notified. CN called patient's son, no answer. Unable to leave voicemail. CN called [facility], no answer. Voicemail left. Plan: Return to [facility]. Facility called, voicemail left. Will clarify patient's level of care. [facility] [address] [place] [address] - Jodee Cook RN 12/31/24 12:12 PM Update: Hand Model spoke w/ [facility]. Patient is a long-term [...] roll. Pt tolerated well. [facility] Hospital course Narrative* Nat Reynolds MD - 01/01/2025 12:00 PM EDT Images from the original note were not included. [facility] INTERNAL MEDICINE [facility] [address] [facility] [id number] Hospital Medicine Discharge Summary Patient: Jonatan Olivarez Date of : 1960 Room: Encounter date: 01/01/25 Hospital Day: 3 DATE OF ADMISSION: 12/30/2024 DATE OF DISCHARGE:01/01/2025 DISCHARGE DIAGNOSES Principal Problem: Acute cystitis without hematuria Active Problems: Hypothyroidism Tobacco abuse COPD with acute exacerbation ([facility]) Hyperlipidemia Primary hypertension Type 2 diabetes mellitus with diabetic foot infection ([facility]) Osteomyelitis of left foot ([facility]) A-fib ([facility]) Controlled type 2 diabetes mellitus with diabetic peripheral angiopathy and gangrene, without long-term current use of insulin ([facility]) CONSULTANTS none PCP: Osmar Rodriguez MD PROCEDURES none HOSPITAL COURSE SUMMARY Jonatan Olivarez is a 64 y.o. female who presented with hypoxia. It is noted that patient was 72% on 2 L upon arrival from [facility]. Per staff her readings had been from [...] d/c Hypokalemia Potassium 2.8 on admission- 3.5 beaming inspector Daily supplement Is on lasix 20 daily [...] Abnormality Status --------- ------ Troponin I, High Sensiti...[[id number]] Normal Final result Troponin I, High Sensiti...[[id number]] Normal Final result Please view results for [...] Range Extra Tube Auto Resulted Extra Urine [place] Collection Time: 12/30/24 5:08 PM Specimen: Urine, Clean Catch Midstream Result Value Ref Range Extra Tube Auto Resulted POCT Nursing Urine Macroscopic UA Collection Time: 12/30/24 5:08 PM Result Value Ref Range POC Urine Specific [place] 1.010 1.010, 1.015, 1.020, 1.025 POC Urine [...] Procedure Abnormality Status --------- ------ Light Blue Top[[id number]] Final result Please view results for these [...] Prominent atherosclerotic calcifications in the aorta. Severe lac vieux coronary artery calcifications. There is prominence of [...] the first and second toes predominantly. Workst ation:[id number] Finalized by Josiah Ken MD on 12/05/2024 2:38 PM DISCHARGE INSTRUCTION Disposition: snf facility Condition: Stable Activity: activity as tolerated Diet: Adult diet Regular Texture; Consistent Carb 255 grams (2000 kcal); No Added Salt (3-4 gm Sodium); Fluid Restriction 2000 mL Adult diet Follow up: Osmar Rodriguez MD within 7-14 days. Labs/Imaging/Pathology: Pending Labs Order Current Status POCT Nursing Urine Macroscopic UA Collected (12/30/24 8158) Discharge Medications: Medication List START taking these [...] the morning. Pro-stat oral lqiuid ( amino sshsx-mrgvxbo-jyqxqgwwsib) -give 30 ml po in the morning [...] this patient. YOVANY Tang 01/01/2025 12:00 PM [facility] Internal Medicine 7AM-7PM & 7PM-7AM: EpicChat [...] noted. NAT REYNOLDS MD documented in this encounterJ.W. Ruby [facility] HospitalXceedium [facility] [id number] Nurse Note* Corrine Mcintosh RN - 01/01/2025 12:04 AM EDT Hand Model in to talk to patient about potassium [...] and patient refused to have that done. Hand Model explained to patient why all were ordered and patient continues to decline to have them done. [facility]10-02-2025 Plan of care note* Plan of [...] on patient's door 9. Provide patient/ patient patient portal representative with isolation education. Outcome: Progressing Note: [...] supplement as ordered 13. Collaborate with clinical web graphic designer 14. Include patient/ patient's patient portal representative in decisions related to nutrition Outcome: [...] Description: INTERVENTIONS: 1. Encourage patient or legal patient portal representative to report early pain and ask [...] per policy 9. Teach patient or legal patient portal representative interventions for comforting Outcome: Progressing Note: [...] at the bedside 7. Instruct patient/ patient patient portal representative about use of safety devices 8. Include patient/ patient patient portal representative in decisions related to safety Outcome: [...] hygiene technique. 7. Identify and instruct patient/patient patient portal representative in use of appropriate isolation precautionsfor identified infection/symptoms. 8. Provide and discuss with patient/patient patient portal representative on educational MDRO sheet. 9. Encourage and monitor nutritional status daily and consult web graphic designer if indicated. 10. Implement neutropenic guidelines as needed. Outcome: Progressing Note: Evaluation of progress towards goal: IV antibiotics continues for infection. Tolerating meds.Vitals within normal limits Problem: Knowledge Deficit Goal: Patient/patient patient portal representative demonstrates understanding of disease process, treatment [...] towards goal: Patient plans on going to [place] upon discharge. [facility]10-02-2025 Progress note* Discharge Planning Note - Jodee Cook RN - 12/31/2024 12:08 PM EDT 12/31/24 3219 Patient Information Initial Pre-Hospitalization Assessment Completed? In-Progress In-Progress Reason: Attempted assessment: patient unable to participate/Contacts unavailable (patient sleeping, unable to wake up. RN notified. CN called patient's son, no answer. Unable to leave voicemail. CN called [facility], no answer. Voicemail left.) Support System Family Members Discharge Planning Type of Residence group home Care Facility Name [facility] [address] [place] [address] Home Care Services No Income Information Income Information Retired/Pension/Social Security Services Requested Patient expects to be discharged to: SNF Discharge Disposition SNF SNF Name [facility] [address] [place] [address] DISCHARGE PLANNING NOTE CN attempted to complete assessment w/ paitent at bedside. Patient sleeping deeply, unable to arouse. RN notified. CN called patient's son, no answer. Unable to leave voicemail. CN called [facility], no answer. Voicemail left. Plan: Return to [facility]. Facility called, voicemail left. Will clarify patient's level of care. [facility] [address] [place] [address] - Jodee Cook RN 12/31/24 12:12 PM Update: Hand Model spoke w/ [facility]. Patient is a long-term resident at facility and can return once medically ready. - Jodee Cook RN 12/31/24 2:21 PM [facility]10-[facility] Plan of care note* Plan of [...] 12/31/2024 1056 by TALA Rangel Outcome: Completed [facility]10-[facility] History and physical note* Nat Reynolds MD - 12/31/2024 9:00 AM EDT Images from the original note were not included. [facility] INTERNAL MEDICINE [facility] [address] [facility] [phone] Hospital Medicine History & Physical Patient: Jonatan Olivarez Date of : 1960 Room: [facility] PCP: Osmar Rodriguez MD Admission date: 12/30/2024 3:02 PM Encounter date: 12/31/24 Hospital Day: 2 SUBJECTIVE Jonatan Olivarez is a 64 y.o. female who presents with hypoxia. It is noted that patient was 72% on 2 L upon arrival from [facility]. Per staff her readings had been from [...] needed for wheezing. 03/18/24 Yes Kellen Shah APRN-STUDENT COUNSELLOR amino acids-protein hydrolys 17-100 gram-kcal/30 mL liquid Take 30 mL by mouth in the morning. Pro-stat oral lqiuid ( amino hqvzy-ofenifq-dqgxyjfntqc) -give 30 ml po in the morning [...] in the morning. 01/18/24 Yes Corie Muller APRN-STUDENT COUNSELLOR benzonatate (TESSALON PERLES) 200 mg capsule Take [...] needed for itching. 12/11/24 Yes Helio Giles APRN-STUDENT COUNSELLOR docusate sodium (COLACE) 100 mg capsule Take 1 capsule (100 mg total) by mouth as needed in the morning and 1 capsule (100 mg total) as needed in the evening for constipation. 02/06/24 Yes Not In System Ref Prov ferrous sulfate 325 (65 FE) MG tablet Take 1 tablet (325 mg total) by mouth in the morning. 12/17/24Yes Alondra Amado APRN-STUDENT COUNSELLOR furosemide (LASIX) 20 mg tablet Take 1 [...] and or wheezing. 10/23/22 Yes Fredy Mcclain APRN-STUDENT COUNSELLOR levoFLOXacin (LEVAQUIN) 750 mg tablet Take 1 [...] needed for opioid reversal. 12/17/24 Alondra Amado APRN-STUDENT COUNSELLOR Code Status: Full Code Past Medical History: Patient has a past medical history of ASHD (arteriosclerotic heart disease), Atherosclerosis of both carotid arteries, CAD S/P percutaneous coronary angioplasty, Claudication in peripheral vascular disease, COPD (chronic obstructive pulmonary disease) ([facility]), Dental disease, Diabetes mellitus ([facility]), Diabetes mellitus type 2, controlled ([facility]), Disease of thyroid gland, Dizziness, Emphysema of lung ([facility]), Hypertension, Hypothyroidism, Lower GI bleed (01/09/2024), Stable [...] Abnormality Status --------- ------ Troponin I, High Sensiti...[[id number]] Normal Final result Troponin I, High Sensiti...[[id number]] Normal Final result Please view results for [...] Range Extra Tube Auto Resulted Extra Urine [place] Collection Time: 12/30/24 5:08 PM Specimen: Urine, Clean Catch Midstream Result Value Ref Range Extra Tube Auto Resulted POCT Nursing Urine Macroscopic UA Collection Time: 12/30/24 5:08 PM Result Value Ref Range POC Urine Specific [place] 1.010 1.010, 1.015, 1.020, 1.025 POC Urine [...] Prominent atherosclerotic calcifications in the aorta. Severe lac vieux coronary artery calcifications. There is prominence of [...] the first and second toes predominantly. Workst ation:[id number] Finalized by Josiah Ken MD on 12/05/2024 2:38 PM HOSPITAL PROBLEM LIST Principal Problem: Acute cystitis without hematuria Active Problems: Hypothyroidism Tobacco abuse COPD with acute exacerbation ([facility]) Hyperlipidemia Primary hypertension Type 2 diabetes mellitus with diabetic foot infection ([facility]) Osteomyelitis of left foot ([facility]) A-fib ([facility]) Controlled type 2 diabetes mellitus with diabetic peripheral angiopathy and gangrene, without long-term current use of insulin ([facility]) ASSESSMENT & PLAN Acute hypoxic respiratory failure-COPD [...] Rocephin Hypokalemia Potassium 2.8 on admission- 3.1 beaming inspector Daily supplement Is on lasix 20 daily [...] above, unless otherwise noted. NAT REYNOLDS MD [facility]10-[facility] History and physical note* Nat Reynolds MD - 12/31/2024 9:00 AM EDT Images from the original note were not included. [facility] INTERNAL MEDICINE [address] [address] Hospital Medicine History & Physical Patient: Jonatan Olivarez Date of : 1960 Room: PCP: Osmar Rodriguez MD Admission date: 12/30/2024 3:02 PM Encounter date: 12/31/24 Hospital Day: 2 SUBJECTIVE Jonatan Olivarez is a 64 y.o. female who presents with hypoxia. It is noted that patient was 72% on 2 L upon arrival from [place]. Per staff her readings had been from [...] the morning. Pro-stat oral lqiuid ( amino dktmg-bgghewp-dngiqxngrya) -give 30 ml po in the morning [...] evening. Take before meals. 01/17/24 Yes YOVANY Kneyon potassium chloride (KLOR-CON) 20 mEq packet Take [...] vascular disease, COPD (chronic obstructive pulmonary disease) ([facility]), Dental disease, Diabetes mellitus ( [facility]), Diabetes mellitus type 2, controlled ([facility]), Disease of thyroid gland, Dizziness, Emphysema of lung ([facility]), Hypertension, Hypothyroidism, Lower GI bleed (01/09/2024), Stable [...] Abnormality Status --------- ------ Troponin I, High Sensiti...[[id number]] Normal Final result Troponin I, High Sensiti...[[id number]] Normal Final result Please view results for [...] Range Extra Tube Auto Resulted Extra Urine [place] Collection Time: 12/30/24 5:08 PM Specimen: Urine, Clean Catch Midstream Result Value Ref Range Extra Tube Auto Resulted POCT Nursing Urine Macroscopic UA Collection Time: 12/30/24 5:08 PM Result Value Ref Range POC Urine Specific [place] 1.010 1.010, 1.015, 1.020, 1.025 POC Urine [...] Prominent atherosclerotic calcifications in the aorta. Severe [place] vie[place] coronary artery calcifications. There is prominence of [...] the first and second toes predominantly. Workst ation:[id number] Finalized by Josiah Ken MD on 12/05/2024 2:38 PM HOSPITAL PROBLEM LIST Principal Problem: Acute cystitis without hematuria Active Problems: Hypothyroidism Tobacco abuse COPD with acute exacerbation ([facility]) Hyperlipidemia Primary hypertension Type 2 diabetes mellitus with diabetic foot infection ([facility]) Osteomyelitis of left foot ([facility]) A-fib ([facility]) Controlled type 2 diabetes mellitus with diabetic peripheral angiopathy and gangrene, without long-term current use of insulin ([facility]) ASSESSMENT & PLAN Acute hypoxic respiratory failure-COPD [...] Rocephin Hypokalemia Potassium 2.8 on admission- 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 NAT REYNOLDS MD [facility] Nurse Note* Anushka Zimmerman RN - 12/31/2024 6:25 AM EDT Pt uncooperative with taking am medications. Refusing to take all of her potassium replacement, pt took 30 of the 50meq needed for replacement per protocol. Pt educated on importance of taking potassium and risks of not taking potassium. Pt continues to refuse. [facility]10-[facility] Progress note* Wound Care - Anushka [...] wrapped w/ gauze roll. Pt tolerated well. [facility]10-[facility] Progress note* Wound Care - Anushka [...] wrapped w/ gauze roll. Pt tolerated well. [facility]10-01-2025 Physician Emergency department Note* Kellen HILDA Shah-FABIENNE - 12/30/2024 3:09 PM EDT Images from the original note were not included. [facility] - EM[facility]ENCY Pt Name: Jonatan Olivarez Birthdate: 1960 Chief Complaint: Chief Complaint Patient presents with Shortness of Breath EMS reports that pt was 72% 2L NC upon arrival at nursing facility. History of Present Illness: Savita Olivarez is a 64-year-old female that presents to ED via EMS from [facility] with complaint of hypoxia. Staff state [...] History provided by: Patient and EMS personnel pyridine recovery operator used: No Past Medical History: Past Medical History: Diagnosis Date ASHD (arteriosclerotic heart disease) Atherosclerosis of both carotid arteries CAD S/P percutaneous coronary angioplasty Claudication in peripheral vascular disease COPD (chronic obstructive pulmonary disease) ([facility]) Dental disease Diabetes mellitus ([facility]) Diabetes mellitus type 2, controlled ([facility]) Disease of thyroid gland Dizziness Emphysema of lung ([facility]) Hypertension Hypothyroidism Lower GI bleed 01/09/2024 Stable angina Ulcer left great toe Ventral hernia Visual impairment Past Surgical History: Past Surgical History: Procedure Laterality Date AORTO-BIFEMORAL BYPASS, VENTRAL HERNIA REPAIR, LEFT FEMORAL TO [id number] POPLITEAL BYPASS [id number] PTFE PROPATEN GORE VASCULAR GRAFT, AND COMPLETION ANGIOGRAM OF LEFT LOWER EXTREMITY Left 06/03/2017 Performed by Rebeca Jhonson DO at [facility] CARD[facility]AC CATHETERIZATION Cardiac catheterization N/A 09/25/2022 Performed by Bonnie Toledo MD at [facility] CARDIAC CATH LABS CARDIAC SURGERY 2001 3 stents CHOLECYSTECTOMY Coronary angiogram and left ventricular gram/pressure N/A 09/25/2022 Performed by Bonnie Toledo MD at [facility] CARDIAC CATH LABS ESOPHAGOGASTRODUODENOSCOPY DIAGNOSTIC N/A 01/17/2024 Performed by Jazmine Gutierrez MD at [facility] ESOPHAGOGASTRODUODENOSCOPY DIAGNOSTIC N/A 01/10/2024 Performed by Renuka Angeles MD at [facility] FEMORAL BYPASS 2009 HYSTERECTOMY 2008 abdominal LYSIS RECHECK AND REMOVAL EXTREMITY UPPER Right 04/18/2024 Performed by Rebeca Johnson MD at [facility] SPECIAL PROC RIGHT BRACHIAL ACCESS, LEFT FEMORAL ANGIOGRAM, LYSIS CATHETER PLACEMENT Left 04/17/2024 Performed by Rebeca Johnson DO at [facility] SPECIAL PROC VASCULAR SURGERY 2007 blood clot [...] - Unmet Transportation Needs (10/22/2024) Received from [facility] - Transportation Lack of Transportation (Medical): Yes Lack of Transportation (Non-Medical): Yes Physical Activity: Inactive (10/22/2022) Exercise Vital Sign Days of Exercise per Week: 0 days Minutes of Exercise per Session: 0 min Stress: No Stress Concern Present (10/22/2022) [employer] [place] [employer]ational [employer] - Occupational Stress Questionnaire Feeling of Stress : Not at all Social Connections: Socially Isolated (10/22/2022) Social Connection and Isolation Panel [NHANES] Frequency of Communication with Friends and Family: More than three times a week Frequency of Social Gatherings with Friends and Family: More than three times a week Attends Christianity Services: Never Active Member of Clubs or [...] above service. IDr. Pizano personally performed a sotg-tr-jdfq diagnostic evaluation on this patient. I personally [...] Cooper 12/30/24 1551 YOVANY Rebolledo 12/31/24 2126 [facility]10-[facility] Emergency department Note* ELI Rebolledo CNP - 12/30/2024 3:09 PM EDT Images from the original note were not included. [facility] - EMERGENCY Pt Name: Jonatan Olivarez Birthdate: 1960 Chief Complaint: Chief Complaint Patient presents with Shortness of Breath EMS reports that pt was 72% 2L NC upon arrival at nursing facility. History of Present Illness: Savita Olivarez is a 64-year-old female that presents to ED via EMS from [facility] with complaint of hypoxia. Staff state [...] History provided by: Patient and EMS personnel pyridine recovery operator used: No Past Medical History: Past Medical History: Diagnosis Date ASHD (arteriosclerotic heart disease) Atherosclerosis of both carotid arteries CAD S/P percutaneous coronary angioplasty Claudication in peripheral vascular disease COPD (chronic obstructive pulmonary disease) ([facility]) Dental disease Diabetes mellitus ([facility]) Diabetes mellitus type 2, controlled ([facility]) Disease of thyroid gland Dizziness Emphysema of lung ([facility]) Hypertension Hypothyroidism Lower GI bleed 01/09/2024 Stable angina Ulcer left great toe Ventral hernia Visual impairment Past Surgical History: Past Surgical History: Procedure Laterality Date AORTO-BIFEMORAL BYPASS, VENTRAL HERNIA REPAIR, LEFT FEMORAL TO [id number] POPLITEAL BYPASS [id number] PTFE PROPATEN GORE VASCULAR GRAFT, AND COMPLETION ANGIOGRAM OF LEFT LOWER EXTREMITY Left 06/03/2017 Performed by Rebeca Johnson DO at [facility]HE[facility] Cardiac catheterization N/A 09/25/2022 Performed by Bonnie Toledo MD at [facility] CARDIAC CATH LABS CARDIAC SURGERY 2000 3 stents CHOLECYSTECTOMY Coronary angiogram and left ventricular gram/pressure N/A 09/25/2022 Performed by Bonnie Toledo MD at [facility] CARDIAC CATH LABS ESOPHAGOGASTRODUODENOSCOPY DIAGNOSTIC N/A 01/17/2024 Performed by Jazmine Gutierrez MD at [facility] ESOPHAGOGASTRODUODENOSCOPY DIAGNOSTIC N/A 01/10/2024 Performed by Renuka Angeles MD at [facility] FEMORAL BYPASS 2010 HYSTERECTOMY 2008 abdominal LYSIS RECHECK AND REMOVAL EXTREMITY UPPER Right 04/18/2024 Performed by Rebeca Johnson MD at [facility] SPECIAL PROC RIGHT BRACHIAL ACCESS, LEFT FEMORAL ANGIOGRAM, LYSIS CATHETER PLACEMENT Left 04/17/2024 Performed by Rebeca Johnson DO at [facility] SPECIAL PROC VASCULAR SURGERY 2008 blood clot [...] - Unmet Transportation Needs (10/22/2024) Received from [facility] - Transportation Lack of Transportation (Medical): Yes Lack of Transportation (Non-Medical): Yes Physical Activity: Inactive (10/22/2022) Exercise Vital Sign Days of Exercise per Week: 0 days Minutes of Exercise per Session: 0 min Stress: No Stress Concern Present (10/22/2022) [place] [employer] - Occupational Stress Questionnaire Feeling of Stress : Not at all Social Connections: Socially Isolated (10/22/2022) Social Connection and Isolation Panel [NHANES] Frequency of Communication with Friends and Family: More than three times a week Frequency of Social Gatherings with Friends and Family: More than three times a week Attends Christianity Services: Never Active Member of Clubs or [...] None Shared/Split Visit 15:12 EDT Royal Rashid (antoinna), scribed for and in the presence of: Dr Chris Pizano who performed the above service. I, Dr. Pizano personally performed a ncwb-hp-tfpa diagnostic evaluation on this patient. I personally [...] 1551 YOVANY Rebolledo 12/31/246 documented in this encounterM[facility]09-[facility] Telephone encounter Note* Telephone Encounter - Vik Vargas NP - 12/21/2024 11:56 AM EDT Requested Prescriptions Signed Prescriptions Disp Refills oxyCODONE-acetaminophen (Percocet) 5-325 MG tablet 120 tablet 0 Sig: Take 1 tablet by mouth every 6 (six) hours if needed for severe pain or moderate pain Authorizing Provider: VIK VARGAS [facility] [id number] Miscellaneous Notes* Telephone Encounter - Vik Vargas NP - 12/21/2024 11:56 AM EDT Requested Prescriptions Signed Prescriptions Disp Refills oxyCODONE-acetaminophen (Percocet) 5-325 MG tablet 120 tablet 0 Sig: Take 1 tablet by mouth every 6 (six) hours if needed for severe pain or moderate pain Authorizing Provider: VIK VARGAS documented in this encounterSaint Mary's Health [id number] History of Present illness Narrative* Zach Saarvia, DAVID - 12/08/2024 7:02 PM EDTSummary: Podiatric [...] and IV antibiotic therapy. Recently admitted through [facility] ED with developing infection involving multiple [...] as well. Labs: Left shift appreciated. Impression: Delvalle stage III neuropathic ulceration 2nd digit left [...] care of this patient. documented in this encounterM[facility]08-21-2025 Hospital Discharge instructions* Discharge Instructions* Filomena De La Garza, HILDA - STUDENT COUNSELLOR - 11/19/2024 4:14 PM EDT Additional medications as directed, you need to call both your primary care and wound care clinic for further evaluation and treatment. * Attachments The following attachments cannot be sent through Care Everywhere. * Hip Pain (Peruvian) * Chronic Wound: Healing: General Info (Peruvian) documented in this encounterBon [facility] History of Present illness Narrative* Erin Stevens RN - 08/17/2024 12:12 PM EDT Patient leaving floor at this time via [facility] via wheelchair. Belongings sent with patient. * Erin Stevens RN - 08/17/2024 11:28 AM EDT Report called to nurse at [facility] at this time. * Erin Stevens [...] and assessment were completed at this time. Hand Model walked patient through the medications that would be administered tonight and encouraged patient to ask questions about the medications and therapies. Patient is requesting all of her night medications be given at 1999 including percocet andAmbien. Patient ambulated to the bathroom and back to bed and technical writer put iodine on her foot wounds [...] Rodriguez MD - 08/16/2024 6:53 AM EDT [address] , [place], [place], [address] Progress Note Date: 08/16/2024 Patient name: Jonatan [...] artery disease), COPD (chronic obstructive pulmonary disease) ([facility]), Depression, Diabetes mellitus ([facility]), Edema, H/O cardiac catheterization, H/O echocardiogram, Hernia [...] Shortness of Breath 12/31/22 Yes Patricia Oh, O AND M SUPERVISOR - STUDENT COUNSELLOR FLOVENT HFA 44 MCG/ACT inhaler Inhale 2 puffs into the lungs 2 times daily 12/18/22 Yes Osmar Rodriguez MD metFORMIN (GLUCOPHAGE) 500 MG tablet Take 1 tablet by mouth 2 times daily (with meals) Patient not taking: Reported on 08/12/2024 08/10/24 Oliva Dunlap, O AND M SUPERVISOR - STUDENT COUNSELLOR docusate sodium (COLACE) 100 MG capsule Take [...] Rodriguez MD vitamin D (ERGOCALCIFEROL) 1.25 MG (18757 UT) CAPS capsule take 1 capsule by mouth every week Patient not taking: Reported on 08/12/2024 10/22/22 Osmar Rodriguez MD Incontinence Supply Disposable (Helium INCONTINENCE PADS) MISC 1 each by Does [...] sores have betadine DIAGNOSTICS: Laboratory Testing: See [facility] EMR for lab data Recent Results (from [...] Oral 4x Daily Oliva Dunlap APRN - STUDENT COUNSELLOR 750mg at 08/15/241921 benzonatate (TESSALON) capsule 200 [...] this chart was generated using voice recognition ModiFaceon dictation software. Although every effort was made to ensure the accuracy of this automated practice performance manager, some errors in practice performance manager may have occurred. Osmar Rodriguez MD 08/16/2024 6:54 AM * Yanira Aguirre RN - 08/16/2024 5:41 AM EDT Patient declined having her water jug refilled. She told technical writer she doesn't drink water. Hand Model refilled patient's coffee cup per request. * Yanira Aguirre RN - 08/15/2024 9:10 PM EDT Hand Model used saline to remove the gauze on patient's feet. Iodine was put on all of her foot wounds and they were left open to air, per order. * Yanira Aguirre RN - 08/15/2024 7:22 PM EDT Vitals and assessment were completed at this time. Hand Model walked patient through the medications that would [...] from the original note were not included. [address] , [place], [place], [address] Progress Note Date: 08/15/2024 Patient name: Jonatan [...] artery disease), COPD (chronic obstructive pulmonary disease) ([facility]), Depression, Diabetes mellitus ([facility]), Edema, H/O cardiac catheterization, H/O echocardiogram, Hernia [...] Rodriguez MD vitamin D (ERGOCALCIFEROL) 1.25 MG (83356 UT) CAPS capsule take 1 capsule by mouth every week Patient not taking: Reported on 08/12/2024 10/22/22 Osmar Rodriguez MD Incontinence Supply Disposable (Helium INCONTINENCE PADS) MISC 1 each by Does [...] sores have betadine DIAGNOSTICS: Laboratory Testing: See [facility] EMR for lab data No results found [...] times per day Oliva Dunlap APRN - STUDENT COUNSELLOR 10 mL at 08/14/242206 sodium chloride flush [...] this chart was generated using voice recognition ModiFaceon dictation software. Although every effort was made to ensure the accuracy of this automated practice performance manager, some errors in practice performance manager may have occurred. Osmar Rodriguez MD 08/15/2024 6:28 AM * Kimberly Valenzuela RN - 08/15/2024 4:30 AM EDT Pt took dressings off of feet several times during the night. Hand Model put betadine on the sores and rewrapped [...] NL LV COPD (chronic obstructive pulmonary disease) ([facility]) Depression Diabetes mellitus ([facility]) Edema chevy legs feet H/O cardiac catheterization 01/01/2011 H/O echocardiogram 09/03/2019 EF 65% evidence of mild grade I diastolic dysfunction seen Hernia of abdominal wall 2012 History of cardiac cath 03/17/2020 [facility] Michael/Dr. Stephens/Left Radial History of cardiac cath [...] Value Date/Time PHART 7.355 12/13/2022 05:39 AM WFX1PGT 46.8 12/13/2022 05:39 AM PO2ART 57.3 12/13/2022 05:39 AM [id number] 88.5 12/13/2022 05:39 AM XSC1VEF 25.5 12/13/2022 05:39 AM PBEA NOT REPORTED [...] Vivar PTA - 08/14/2024 1:56 PM EDT [facility] Inpatient/Observation/Outpatient Rehabilitation Date: 08/14/2024 Patient Name: Jonatan [...] does not require skilled services due to: Therapist/Cushion Padder will attempt to see this patient, at [...] 08/14/2024 10:35 AM EDT Physical Therapy Facility/Department: [facility] Daily Treatment Note NAME: Jonatan [...] 2L oxygen. Aware of possible transfer to [facility] depending on insurance. She is asking [...] treatment Condition is stable Treatment plan: Appreciate child protective services social worker-discharge planning-will need SNF PT/OT Up with assistance Imaging: no further imaging studies ordered today Medications: Medications not indicated at this time Medication Monitoring / High Risk Medications: none Chronic wounds of Bilateral Feet Condition is a chronic stable condition Treatment plan: Cancel consult for Dr Newman-out [facility]. Will continue with his POC at this time Scheduled with Dr Colmenares next week, if still here will consult for evaluation Heels off the bed Wound Care: Betadine to wounds daily She is Diabetic -- Refuses to take medications prescribed Imaging: no further imaging studies ordered today Medications: Continue Augmentin Continue Metformin-REFUSES Nutrition status: at risk for malnutrition Grant Writer consult initiated I/O Daily weight Monitor Daily [...] Accumulation Location: Extremities (08/13/24736) Acute Illness - Cra Officer Strength: Not Performed (08/13/24736) Acute Illness - [...] status: Full Code Disposition: Discharge plan is [facility]IPS Advanced Care Planning documentation: [x] [...] 1:14 PM EDT Associated attestation - Osmar Rodriugez MD - 08/14/2024 1:14 PM EDT Images from the original note were not included. [address] [place], [place], [address] Attestation Patient: Jonatan Oliavrez Date of Admission: 08/12/2024 10:20 AM Hospital Day # 2 Date of Evaluation: 08/14/2024 I personally evaluated and examined the patient [id number] in conjunction with the PA/SENIOR LIBRARIAN and agree with the management and dispostition of the patient. Please see the PA/SENIOR LIBRARIAN's note for full details.My sims findings are: [...] with the plan as outlined in the SENIOR LIBRARIAN/PA's note Disposition: Discharge plan is pending Please note that this chart was generated using voice recognition ModiFaceon dictation software. Although every effort was made to ensure the accuracy of this automated practice performance manager, some errors in practice performance manager may have occurred. Osmar Rodriguez MD 08/14/2024 1:10 PM * Rosalinda Adame RN - 08/14/2024 1:53 AM EDT Pt yelling out of room for help. Hand Model entered room, pt in bed yelling at technical writer about time my leonard champion call light is on the floor and nobody is coming to help me . Hand Model showed pt the red button on the side of he bed in case this were to happen again. Pt understood. Hand Model cleaned pt up at thistime, changed bed [...] Vivar PTA - 08/13/2024 3:19 PM EDT [facility] Inpatient/Observation/Outpatient Rehabilitation Date: 08/13/2024 Patient Name: Jonatan [...] does not require skilled services due to: Therapist/Cushion Padder will attempt to see this patient, at our earliest opportunity. Erika Vivar, DIRECTOR PUBLIC POLICY Date: 08/13/2024 Cosigned by Joanie Mireles PT at 08/13/2024 4:08 PM EDT * Bea Mrieles, MARBLE COPER - 08/13/2024 12:47 PM EDT RESPIRATORY ASSESSMENT PROTOCOL Patient Name: Jonatan Phillips [place] Room#: 0301/0301-01 : 1960 Admitting diagnosis: PVD [...] NL LV COPD (chronic obstructive pulmonary disease) ([facility]) Depression Diabetes mellitus ([facility]) Edema chevy legs feet H/O cardiac catheterization 01/01/2011 H/O echocardiogram 09/03/2019 EF 65% evidence of mild grade I diastolic dysfunction seen Hernia of abdominal wall 2012 History of cardiac cath 03/17/2020 [facility] Michael/Dr. Stephens/Left Radial History of cardiac cath [...] Value Date/Time PHART 7.355 12/13/2022 05:39 AM [id number] 46.8 12/13/2022 05:39 AM PO2ART 57.3 12/13/2022 05:39 AM X0WTALBE 88.5 12/13/2022 05:39 AM MJD0SJK 25.5 12/13/2022 05:39 AM PBEA NOT REPORTED [...] ____Yes ____No ____Patient Refused * Kirsten Jackson [facility] - 08/13/2024 8:27 AM EDT Images from the original note were not included. [facility] Department of Pharmacy Pharmacy Renal Adjustment Note [...] - 79 ml/min. Thank you, Kirsten Jackson [facility],08/13/2024,8:26 AM * Rena Loya OT - 08/13/2024 8:10 AM EDT Occupational Therapy Facility/Department: [facility] Occupational Therapy Initial Assessment Name: Jonatan Olivarez : 1960 Date of Service: 08/13/2024 Discharge Recommendations: Continue to assess pending progress, Subacute/[facility] Facility, Home with assist PRN, Home with [...] artery disease), COPD (chronic obstructive pulmonary disease) ([facility]), Depression, Diabetes mellitus (HCC), Edema, H/O cardiac [...] is a 63 y.o. female, admitted to [facility] post admitting diagnosis of PVD (Peripheral Vascular [...] Level of Assist for Transfers: Independent Active Training Personnel Supervisor: No Patient's Training Personnel Supervisor Info: son Additional Comments: Pt shares IADL's [...] 08/13/2024 7:38 AM EDT Physical Therapy Facility/Department: [facility] Physical Therapy Initial Assessment Name: [...] Level of Assist for Transfers: Independent Active Training Personnel Supervisor: No Patient's Training Personnel Supervisor Info: son Additional Comments: Pt shares IADL's [...] Minutes Joanie Mireles PT, DPT Cosigned by Oliav Dunlap APRN - CNP at 08/13/2024 1:11 [...] muscle mass loss Fluid Accumulation: Mild Extremities Cra Officer Strength: Not Performed Nutrition Assessment: Increased energy needs r/t acute injury or trauma, AEB multiple diabetic wounds on feet. History ofweight losses without many actual weights available. Used to be 150# but admits, years ago . Eating mostly once daily at home with use [place] 2 [place] [address] units vit D and may benefit from [...] Measures: Height: 154.9 cm (5' 1 ) [place]agan Body Weight (IBW): 105 lbs (48 kg) [...] Used for Energy Requirements: Current Energy (kcal/day): 0826-5438 (28-33) Weight Used for Protein Requirements: Current [...] Nutrition Supplement [address], JOE Contact: [phone] * Oliva Dunlap APRN - FABIENNE - [...] treatment Condition is stable Treatment plan: Appreciate child protective services social worker-discharge planning-will need SNF PT/OT Up with assistance [...] Metformin-REFUSES Nutrition status: at risk for malnutrition Grant Writer consult initiated I/O Daily weight Monitor Daily [...] status: Full Code Disposition: Discharge plan is [facility] Advanced Care Planning documentation: [x] I have [...] MIPS PERFORMANCE] HILDA Cortes CNP , HILDA, SENIOR LIBRARIAN-C Hospitalist Medicine 08/13/2024, 6:54 AM Cosigned by Osmar Rodriguez MD at 08/13/2024 7:12 PM EDT Associated attestation - Osmar Rodriguez MD - 08/13/2024 7:12 PM EDT Images from the original note were not included. [address], [place], [place], [address] Attestation Patient: Jonatan Olivarez Date of Admission: 08/12/2024 10:20 AM Hospital Day # 1 Date of Evaluation: 08/13/2024 I personally evaluated and examined the patient [id number] in conjunction with the PA/SENIOR LIBRARIAN and agree with the management and dispostition of the patient. Please see the PA/SENIOR LIBRARIAN's note for full details.My sims findings are: [...] with the plan as outlined in the SENIOR LIBRARIAN/PA's note Disposition: Discharge plan is pending Please note that this chart was generated using voice recognition Mobileum dictation software. Although every effort was made to ensure the accuracy of this automated practice performance manager, some errors in practice performance manager may have occurred. Osmar Rodriguez MD 08/13/2024 7:11 PM * Ashley He RN - 08/13/2024 6:38 AM EDT Hand Model to bedside to complete morning assessment. Upon [...] her feel funky. Pt denies needs from technical writer at this time. Call light in [...] Birch, PT - 08/12/2024 4:58 PM EDT [facility] Inpatient/Observation/Outpatient Rehabilitation Date: 08/12/2024 Patient Name: Jonatan Olivarez [] Inpatient Acute/Observation [] Outpatient : 1960 [x] Pt refused/declined therapy at this time due to: Pt declining PT eval until morning. Therapist/Cushion Padder will attempt to see this patient, at our earliest opportunity. SUSANNE BIRCH, PT Date: 08/12/2024 * Darling Welsh, MARBLE COPER - 08/12/2024 4:10 PM EDT RESPIRATORY ASSESSMENT [...] wall 2012 History of cardiac cath 03/17/2020 [facility] Michael/Dr. Stephens/Left Radial History of cardiac cath [...] Value Date/Time PHART 7.355 12/13/2022 05:39 AM [id number] 46.8 12/13/2022 05:39 AM PO2ART 57.3 12/13/2022 05:39 AM J0VUBCCP 88.5 12/13/2022 05:39 AM PYO0YDN 25.5 12/13/2022 05:39 AM PBEA NOT REPORTED [...] ____No ____Patient Refused documented in this encounterBon [facility] Hospital Discharge instructions* Discharge Instr - DUSTIN* [...] Emergency Contact: Serafin Olivarez Mobile Relation: Child Concrete Paving Machine Operator needed? No Past Surgical History: Past Surgical History: Procedure Laterality Date AORTA SURGERY 05/2016 [facility] CARDIAC CATHETERIZATION heart stent x3 CARDIAC CATHETERIZATION Left 02/25/2018 Right Ulnar/[facility] Michael/ CARDIAC SURGERY CHOLECYSTECTOMY FEMORAL BYPASS HYSTERECTOMY (CERVIX STATUS UNKNOWN) VASCULAR SURGERY blood clot removed after hysto Immunization History: Immunization History Administered Date(s) Administered Influenza A ([id number]) Vaccine PF IM 03/17/2009 Influenza Virus Vaccine [...] type 2 diabetes mellitus, with fat layer exposed([facility]) E11.621, L97.522 Diabetic polyneuropathy associated with type 2 diabetes mellitus ([facility]) E11.42 Angina, class III I20.9 COPD with exacerbation ([facility]) J44.1 Hx of blood clots Z86.718 CAD (coronary artery disease) I25.10 COPD exacerbation ([facility]) J44.1 Community acquired bacterial pneumonia J15.9 COPD (chronic obstructive pulmonary disease) ([facility]) J44.9 Diabetes mellitus ([facility]) E11.9 Hypertension I10 Pneumonia due to infectious organism J18.9 AMS (altered mental status) R41.82 E. coli UTI N39.0, B96.20 Unstable angina ([facility]) I20.0 Acute coronary syndrome ([facility]) I24.9 S/P cardiac cath Z98.890 S/P angioplasty with stent Z95.820 Cellulitis of left lower extremity L03.116 Acute on chronic diastolic heart failure ([facility]) I50.33 Chronic pain of right knee M25.561, [...] Chronic cough R05.3 Chronic obstructive pulmonary disease ([facility]) J44.9 Chronic suppurative otitis media of left ear H66.3X2 Mass of left thigh R22.42 Primary hypertension I10 Left hand pain M79.642 Acute bilateral low back pain with bilateral sciatica M54.42, M54.41 Hyperglycemia R73.9 Hypoxia R09.02 Chronic obstructive pulmonary disease with acute exacerbation ([facility]) J44.1 Chest congestion R09.89 Hernia of abdominal wall K43.9 Acute congestive heart failure, unspecified heart failure type ([facility]) I50.9 Spleen hematoma S36.029A Anemia D64.9 Heart failure ([facility]) I50.9 Elevated hemoglobin A1c R73.09 Generalized abdominal pain R10.84 COPD with acute exacerbation ([facility]) J44.1 Chronic coughing R05.3 Allergic rhinitis J30.9 Acute lower GI bleeding K92.2 Hypertensive emergency I16.1 Laceration of spleen S36.039A Myocardial infarction ([facility]) I21.9 PRES (posterior reversible encephalopathy syndrome) I67.83 Presence of stent in coronary artery Z95.5 Pulmonary emboli ([facility]) I26.99 Pulmonary HTN ([facility]) I27.20 Spleen injury S36.00XA Spondylosis of lumbar spine M47.816 Traumatic skin ulcer, limited to breakdown of skin ([facility]) L98.491 Ulcer of left great toe due to diabetes mellitus ([facility]) E11.621, L97.529 Upper GI bleed K92.2 Spinal stenosis of lumbar region M48.061 Breast cancer screening by mammogram Z12.31 Neuropathy G62.9 Cellulitis L03.90 Dry skin L85.3 Disorder of arteries and arterioles, unspecified I77.9 Closed fracture of pelvis ([facility]) S32.9XXA Closed head injury S09.90XA Closed fracture of nasal bone S02.2XXA Viral infection, unspecified B34.9 Severe obesity ([facility]) E66.01 Postoperative state Z98.890 Numbness R20.0 Laceration [...] 2 diabetes mellitus, with fat layer exposed ([facility]) E11.621, L97.422 Mouth sore K13.79 Acute insomnia [...] MRSA 07/06/13 07/06/13 Oliva Dunlap APRN - STUDENT COUNSELLOR 03/18/20 Seth Prajapati RN 07/02/2013 wound--right groin [...] Assisted Dressing Assisted Toileting Assisted Feeding Independent Oral Pathologist Assisted Med Delivery whole Wound Care Documentation [...] of days: 612 Wound 08/12/24 Ankle Left;Lateral 8lay4fx (Active) Wound Image 08/12/24 1221 Wound Cleansed Betadine/povidone iodine 08/17/24 0651 Dressing/Treatment Open to air 08/17/24 0651 Wound Assessment Dry 08/17/24 0651 Drainage Amount None (dry) 08/17/24 0651 Odor None 08/17/24 0651 Felicity-wound Assessment Warm;Dry/flaky 08/17/24 0651 Margins Undefined edges 08/12/24 1836 Number of days: 4 Wound 08/12/24 Toe (Comment which one) Right 9xsl8ic (Active) Wound Image 08/12/24 1227 Wound Cleansed Betadine/povidone iodine 08/17/24 0651 Dressing/Treatment Open to air 08/17/24 0651 Wound Assessment Dry 08/17/24 0651 Drainage Amount None (dry) 08/17/24 0651 Odor None 08/17/24 0651 Felicity-wound Assessment Dry/flaky 08/17/24 0651 Margins Undefined edges 08/12/24 1836 Number of days: 4 Wound 08/12/24 Toe (Comment which one) Right 0tmk2rn (Active) Wound Cleansed Betadine/povidone iodine 08/17/24 0651 [...] of days: 4 Wound 08/12/24 Heel Right;Plantar 3jon2ac (Active) Wound Image 08/12/24 1228 Wound Cleansed [...] 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 Patient's personal belongings (please select all that are sent with patient): Dentures upper and lower, bag of clothes, cell phone, stringed instrument repairer, notebook. RN SIGNATURE: CASE MANAGEMENT/SOCIAL WORK SECTION Inpatient Status Date: 08/12/24 Readmission Risk Assessment Score: [facility] RISK OF UNPLANNED READMISSION 2.0 19.7 Total Score Discharging to Facility/ Agency Name: [facility] Address:[place], [place] Fax: Dialysis Facility (if applicable) Name: Address: Dialysis Schedule: Phone: Fax: Machine Shop Apprentice/Bone Drier signature: PHYSICIAN SECTION Prognosis: Fair Condition at Discharge: Stable Rehab Potential (if transferring to Rehab): Fair Recommended Labs or Other Treatments After Discharge: na Physician Certification: I certify the above information and transfer of Jonatan Olivarez is necessary for the continuing treatment of the diagnosis listed and that she requires [facility] for greater 30 days. Update Admission H&P: No change in H&P PHYSICIAN SIGNATURE: documented in this encounterBon [facility] History of Present illness Narrative* Ly Constantino RN - 08/10/2024 6:30 PM EDT Hand Model at bedside to complete evening assessment. Upon entry to room, pt in bed, respirations unlabored while on 2L NC. Vitals obtained and assessment completed, see flow sheet for details. Pt deniesneeds from technical writer at this time. Call light in reach. Care is ongoing. * Erika Vivar PTA - 08/10/2024 2:54 PM EDT [facility] Inpatient/Observation/Outpatient Rehabilitation Date: 08/10/2024 Patient Name: Jonatan [...] does not require skilled services due to: Therapist/Cushion Padder will attempt to see this patient, at our earliest opportunity. Erika Vivar, DIRECTOR PUBLIC POLICY Date: 08/10/2024 Cosigned by Susanne Birch, PT at 08/10/2024 3:04 PM EDT * Corie Robertson RN - 08/10/2024 1:10 PM EDT Hand Model completed wound care and placed new wound dressing at this time. * Anjelica Carrington OT - 08/10/2024 10:59 AM EDT Occupational Therapy Facility/Department: [facility] Daily Treatment Note NAME: Jonatan [...] 13 Anjelica Carrington OT * Erika Vivar, DIRECTOR PUBLIC POLICY - 08/10/2024 10:44 AM EDT Physical Therapy Facility/Department: [facility] Daily Treatment Note NAME: Jonatan Olivarez : 1960 Date of Service: 08/10/2024 Discharge Recommendations: Continue to assess pending progress, Subacute/[facility] Facility, Home with Home health PT Patient [...] wall 2012 History of cardiac cath 03/17/2020 [facility] Michael/Dr. Stephens/Left Radial History of cardiac cath [...] Value Date/Time PHART 7.355 12/13/2022 05:39 AM FHF7GGV 46.8 12/13/2022 05:39 AM PO2ART 57.3 12/13/2022 05:39 AM H5POOFHV 88.5 12/13/2022 05:39 AM APT4SZE 25.5 12/13/2022 05:39 AM PBEA NOT REPORTED [...] Robertson, DARI - 08/10/2024 7:55 AM EDT Hand Model to bedside to complete morning assessment. Upon [...] and whiteboard updated. Pt denies needs from technical writer at this time. Call light in [...] No rashes. No skin lesions. See below 08/06/20249951-Jbmeicaqd-Trim Foot/Toes 08/06/2024-Admission--Right Foot/Toes Diagnostic Data: Complete Blood [...] Condition is stable Treatment plan: PT/OT Appreciate Grant Writer Imaging: CT Head-negative CT Chest/Abd/Pelvis-see above Medications: LOC DM Condition is stable Treatment plan: A1C-7.2 current 6.8 in 2023 Appreciate Grant Writer Imaging: no further imaging studies ordered today Medications: Continue metformin Nutrition status: severe malnutrition Grant Writer consult initiated I/O Daily weight Monitor Daily [...] No fluid accumulation (08/07/241130) Acute Illness - Cra Officer Strength: Not Performed (08/07/241130) Acute Illness - [...] Full Code Disposition: Discharge plan is home [facility] Advanced Care Planning documentation: [x] I have [...] MIPS PERFORMANCE] HILDA Cortes CNP , HILDA, SENIOR LIBRARIAN-C Hospitalist Medicine 08/10/2024, 6:46 AM Cosigned by Osmar Rodriguez MD at 08/10/2024 6:51 PM EDT Associated attestation - Osmar Rodriguez MD - 08/10/2024 6:51 PM EDT Images from the original note were not included. [address] , [place], [place], [address] Attestation Patient: Jonatan Olivarez Date of Admission: 08/06/2024 1:44 PM Hospital Day # 4 Date of Evaluation: 08/10/2024 I personally evaluated and examined the patient [id number] in conjunction with the PA/SENIOR LIBRARIAN and agree with the management and dispostition of the patient. Please see the PA/SENIOR LIBRARIAN's note for full details.My sims findings are: [...] with the plan as outlined in the SENIOR LIBRARIAN/PA's note Disposition: Discharge plan is pending Please note that this chart was generated using voice recognition [employer] dictation software. Although every effort was made to ensure the accuracy of this automated practice performance manager, some errors in practice performance manager may have occurred. Osmar Rodriguez MD 08/10/2024 6:51 PM * Louise Mccoy RN - 08/09/2024 1:40 PM EDT Hand Model to bedside for afternoon assessment. See flowsheets [...] tissue gas. No focal intramuscular abnormality. Joint: Rxno-sq-yklfwjvj tricompartmental osteoarthritis of the knee joint. No [...] tissue gas. No focal intramuscular abnormality. Joint: Abmv-by-bqenxvbd tricompartmental osteoarthritis of the knee joint. No [...] tissue gas. No focal intramuscular abnormality. Joint: Qesq-gv-dbbwjtrl tricompartmental osteoarthritis of the knee joint. No [...] tissue gas. No focal intramuscular abnormality. Joint: Hogi-bg-nvrutnuc tricompartmental osteoarthritis of the knee joint. No [...] plaque along the aorta and its branches. 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 Aortic graft [...] artery disease) COPD (chronic obstructive pulmonary disease) ([facility]) Chronic right hip pain Weight loss Oxygen dependent - 2L per baseline Resolved Problems: * No resolved hospital problems. * Patient Active Problem List Diagnosis Date Noted Unstable angina ([facility]) 03/17/2020 Angina, class III 02/25/2018 Diabetic ulcer of toe of left foot associated with type 2 diabetes mellitus, with fat layer exposed([facility]) 01/24/2017 CAD S/P percutaneous coronary angioplasty 08/30/2013 Severe malnutrition 08/07/2024 Left hand pain 06/11/2022 Primary hypertension 05/04/2022 Chronic obstructive pulmonary disease ([facility]) 04/09/2022 Chronic suppurative otitis media of left [...] polyneuropathy associated with type 2 diabetes mellitus ([facility]) 01/24/2017 Ventral hernia 08/30/2013 Fall 08/06/2024 Cellulitis of lower extremity, unspecified laterality 08/06/2024 Oxygen dependent - 2L per baseline 08/06/2024 Acute insomnia 07/27/2024 Diabetic ulcer of left heel associated with type 2 diabetes mellitus, with fat layer exposed ([facility]) 07/21/2024 Mouth sore 07/21/2024 Weight loss 06/24/2024 Closed fracture of pelvis ([facility]) 06/23/2024 Closed head injury 06/23/2024 Closed fracture [...] skin ulcer, limited to breakdown of skin ([facility]) 01/10/2024 Ulcer of left great toe due to diabetes mellitus ([facility]) 01/10/2024 Acute lower GI bleeding 01/09/2024 Upper GI bleed 01/09/2024 Transient alteration of awareness 01/09/2024 Acute lower gastrointestinal hemorrhage 01/09/2024 Lower GI bleed 01/09/2024 Vomiting 01/06/2024 Chronic coughing 08/13/2023 Allergic rhinitis 08/13/2023 COPD with acute exacerbation ([facility]) 07/12/2023 Elevated hemoglobin A1c 06/10/2023 Generalized abdominal pain 06/10/2023 Heart failure ([facility]) 04/12/2023 Anemia 01/28/2023 Acute congestive heart failure, unspecified heart failure type ([facility]) 12/13/2022 Spleen hematoma 12/13/2022 Hypertensive emergency 11/09/2022 Hernia of abdominal wall 10/29/2022 Chest congestion 09/21/2022 Laceration of spleen 09/02/2022 Pulmonary HTN ([facility]) 09/02/2022 Spleen injury 09/02/2022 Chronic obstructive pulmonary disease with acute exacerbation ([facility]) 08/13/2022 Hypoxia 08/07/2022 Acute bilateral low back [...] organism 04/23/2019 COPD (chronic obstructive pulmonary disease) ([facility]) Diabetes mellitus ([facility]) Hypertension Community acquired bacterial pneumonia 04/21/2019 COPD exacerbation ([facility]) 06/06/2018 COPD with exacerbation ([facility]) 06/05/2018 Hx of blood clots CAD (coronary artery disease) Severe obesity ([facility]) 11/05/2017 Laceration of nose 10/22/2017 Postoperative state [...] Santiago MD , M.D. * Vahid Valera, DIRECTOR PUBLIC POLICY - 08/09/2024 7:52 AM EDT Physical Therapy Facility/Department: [facility] Daily Treatment Note NAME: Jonatan Olivarez : 1960 Date of Service: 08/09/2024 Discharge Recommendations: Continue to assess pending progress, Subacute/[facility], Home with Home health PT Patient [...] up in the bed watching TV when technical writer entered the room. Pt is A&O x4. Vitals and assessment as charted. Pt rated her pain a 8 out of 10 in bilat feet and legs. Hand Model educated pt that her pain medications is due at 1909 and pt verbalized understanding. Pt denies any further needs at this time. Call light within reach. Bed alarm on. * Vahid Valera PTA - 08/08/2024 9:10 AM EDT [facility] Inpatient/Observation/Outpatient Rehabilitation Date: 08/08/2024 Patient Name: Jonatan Olivarez [x] Inpatient Acute/Observation [] Outpatient : 1960 [x] Pt refused/declined therapy at this time due to: Pt pleasantly declined therapy at this time d/t increased foot pain. Pt stated i'm not doing no physical therapy today . Pt declined exercises inthe chair. Therapist/Cushion Padder will attempt to see this patient, at [...] tissue gas. No focal intramuscular abnormality. Joint: Alvk-qk-jrereevh tricompartmental osteoarthritis of the knee joint. No [...] tissue gas. No focal intramuscular abnormality. Joint: Dekq-pj-jcdhdszp tricompartmental osteoarthritis of the knee joint. No [...] tissue gas. No focal intramuscular abnormality. Joint: Hwcx-bi-evfbyami tricompartmental osteoarthritis of the knee joint. No [...] tissue gas. No focal intramuscular abnormality. Joint: Ydbr-fz-pqnizbax tricompartmental osteoarthritis of the knee joint. No [...] plaque along the aorta and its branches. 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 Aortic graft [...] polyneuropathy associated with type 2 diabetes mellitus ([facility]) Primary hypertension Severe malnutrition Tobacco abuse disorder CAD (coronary artery disease) COPD (chronic obstructive pulmonary disease) ([facility]) Chronic right hip pain Weight loss Oxygen dependent - 2L per baseline Resolved Problems: * No resolved hospital problems. * Patient Active Problem List Diagnosis Date Noted Unstable angina ([facility]) 03/17/2020 Angina, class III 02/25/2018 Diabetic ulcer of toe of left foot associated with type 2 diabetes mellitus, with fat layer exposed([facility]) 01/24/2017 CAD S/P percutaneous coronary angioplasty 08/30/2013 [...] polyneuropathy associated with type 2 diabetes mellitus ([facility]) 01/24/2017 Ventral hernia 08/30/2013 Fall 08/06/2024 Cellulitis of lower extremity, unspecified laterality 08/06/2024 Oxygen dependent - 2L per baseline 08/06/2024 Acute insomnia 07/27/2024 Diabetic ulcer of left heel associated with type 2 diabetes mellitus, with fat layer exposed ([facility]) 07/21/2024 Mouth sore 07/21/2024 Weight loss 06/24/2024 Closed fracture of pelvis ([facility]) 06/23/2024 Closed head injury 06/23/2024 Closed fracture [...] 03/18/2024 Erythematous condition, unspecified 03/07/2024 Myocardial infarction ([facility]) 03/02/2024 Presence of stent in coronary artery 03/02/2024 Pulmonary emboli ([facility]) 03/02/2024 Spondylosis of lumbar spine 03/02/2024 Spinal stenosis of lumbar region 03/02/2024 Breast cancer screening by mammogram 03/02/2024 Traumatic skin ulcer, limited to breakdown of skin ([facility]) 01/10/2024 Ulcer of left great toe due to diabetes mellitus ([facility]) 01/10/2024 Acute lower GI bleeding 01/09/2024 Upper GI bleed 01/09/2024 Transient alteration of awareness 01/09/2024 Acute lower gastrointestinal hemorrhage 01/09/2024 Lower GI bleed 01/09/2024 Vomiting 01/06/2024 Chronic coughing 08/13/2023 Allergic rhinitis 08/13/2023 COPD with acute exacerbation ([facility]) 07/12/2023 Elevated hemoglobin A1c 06/10/2023 Generalized abdominal pain 06/10/2023 Heart failure ([facility]) 04/12/2023 Anemia 01/28/2023 Acute congestive heart failure, unspecified heart failure type ([facility]) 12/13/2022 Spleen hematoma 12/13/2022 Hypertensive emergency 11/09/2022 Hernia of abdominal wall 10/29/2022 Chest congestion 09/21/2022 Laceration of spleen 09/02/2022 Pulmonary HTN ([facility]) 09/02/2022 Spleen injury 09/02/2022 Chronic obstructive pulmonary disease with acute exacerbation ([facility]) 08/13/2022 Hypoxia 08/07/2022 Acute bilateral low back [...] organism 04/23/2019 COPD (chronic obstructive pulmonary disease) ([facility]) Diabetes mellitus ([facility]) Hypertension Community acquired bacterial pneumonia 04/21/2019 COPD exacerbation ([facility]) 06/06/2018 COPD with exacerbation ([facility]) 06/05/2018 Hx of blood clots CAD (coronary artery disease) Severe obesity ([facility]) 11/05/2017 Laceration of nose 10/22/2017 Postoperative state [...] Podiatry involved Critical Care Time: 0 Antibiotic [facility] Advanced Care Planning documentation: [x] I have [...] the patient's medical record. [DOES NOT SATISFY [facility] PERFORMANCE] Gordo De Santiago MD , M.D. * Quirino Newman DPM - 08/07/2024 11:21 PM EDT Spoke with SENIOR LIBRARIAN via perfect serve in regards to vascular results. Moderate occlusion of proximal inflow noted bilateral, namely previous fempop bypass left lower. Patient will require vascular consultation and likely intervention in order to faciliate wound healing. Continue with current betadine dressings. * Ly Constantino RN - 08/07/2024 7:15 PM EDT Hand Model at bedside to complete evening assessment. Upon entry to room, pt in bed, respirations unlabored while on 2 L NC. Vitals obtained and assessment completed, see flow sheet for details. Pt denies needs from technical writer at this time. Call light in reach. Care is ongoing. * Erika Vivar PTA - 08/07/2024 1:57 PM EDT Physical Therapy Facility/Department: [facility] Daily Treatment Note NAME: Jonatan Olivarez : 1960 Date of Service: 08/07/2024 Discharge Recommendations: Continue to assess pending progress, Subacute/[facility], Home with Home health PT Patient [...] plus a pain pill at bedside and technical writer obtaining vital signs, hypotensive (see chart) [...] Hand (interosseous) Fluid Accumulation: No fluid accumulation Cra Officer Strength: Not Performed Nutrition Assessment: Severe malnutrition [...] Measures: Height: 154.9 cm (5' 0.98 ) [place] Body Weight (IBW): 105 lbs (48 kg) [...] Used for Energy Requirements: Current Energy (kcal/day): 3388-0443 (27-30kcal/d) Weight Used for Protein Requirements: [place] Protein (g/day): 58-67 (1.2-1.4g/d) Method Used for Fluid Requirements: 1 ml/kcal Fluid (ml/day): 0885-2826 Nutrition Diagnosis: Severe malnutrition related to inadequate [...] Supplement, Continue current diet Leyla Holguin Contact: [phone], LD at 08/07/2024 11:53 AM EDT * Susanne Luciano, PT - 08/07/2024 9:04 AM EDT Physical Therapy Facility/Department: [facility] Physical Therapy Initial Assessment Name: Jonatan Olivarez : 1960 Date of Service: 08/07/2024 Discharge Recommendations: Continue to assess pending progress, Subacute/Fci Facility, Home with Home health PT PT [...] gauze wrap. * Oliva Dunlap APRN - STUDENT COUNSELLOR - 08/07/2024 8:32 AM EDT Images from [...] No rashes. No skin lesions. See below 08/06/20247820-Nubmfpgzi-[place] Foot/Toes 08/06/2024-Admission--Right Foot/Toes Diagnostic Data: Complete Blood [...] Condition is stable Treatment plan: PT/OT Appreciate Grant Writer Imaging: CT Head-negative CT Chest/Abd/Pelvis-see above Medications: IVF DM Condition is stable Treatment plan: A1C-7.2 current 6.8 in 2023 Appreciate Grant Writer Imaging: no further imaging studies ordered today Medications: Start Metformin Nutrition status: severe malnutrition Grant Writer consult initiated I/O Daily weight Monitor Daily [...] No fluid accumulation (08/07/241130) Acute Illness - Cra Officer Strength: Not Performed (08/07/241130) Acute Illness - Malnutrition Score: 16 (08/07/241130) Malnutrition Status: Severe malnutrition (08/07/241130) I agree with the dietitian's malnutrition assessment. Medical Nutrition Therapy: continue current nutrition therapy and oral supplements [facility] Prophylaxis: DVT: Eliquis Stress Ulcer: PPI Disposition: Shared decision making: All test results, treatment options and disposition options were discussed with the patient today Social determinants of health that may impact management: none Code status: Full Code Disposition: Discharge plan is pending [facility] Advanced Care Planning documentation: [x] I have [...] the patient's medical record. [DOES NOT SATISFY [facility] PERFORMANCE] HILDA Cortes CNP , CHENTE STEVENSC Hospitalist Medicine 08/07/2024, 11:47 AM Cosigned by Osmar Rodriguez MD at 08/07/2024 8:32 PM EDT Associated attestation - Osmar Rodriguez MD - 08/07/2024 8:32 PM EDT Images from the original note were not included. [address], [address] Attestation Patient: Jonatan Olivarez Date of Admission: 08/06/2024 1:44 PM Hospital Day # 1 Date of Evaluation: 08/07/2024 I personally evaluated and examined the patient [id number] in conjunction with the PA/SENIOR LIBRARIAN and agree with the management and dispostition of the patient. Please see the PA/SENIOR LIBRARIAN's note for full details.My sims findings are: [...] with the plan as outlined in the SENIOR LIBRARIAN/PA's note Disposition: Discharge plan is pending Please note that this chart was generated using voice recognition ModiFaceon dictation software. Although every effort was made to ensure the accuracy of this automated practice performance manager, some errors in practice performance manager may have occurred. Osmar Rodriguez MD 08/07/2024 8:29 PM * Mariaelena Marshall, OTR/L - 08/07/2024 8:00 AM EDT Occupational Therapy Facility/Department: [facility] Occupational Therapy Initial Assessment Name: [...] balance Assessment: 63 y/o F admitted to [facility] for cellulitis LE. Patient presents with genearlized [...] Learning: None Education Outcome: Verbalized understanding;Demonstrated understanding AM-[facility] - ADL AM-[facility] Daily Activity - Inpatient How much help [...] How much help for eating meals?: None AM-[facility] Inpatient Daily Activity Raw Score: 19 [facility] In[facility] ADL T-Scale Score : 40.22 ADL Inpatient [facility] 0-100% Score: 42.8 ADL Inpatient [facility] G-Code Modifier : CK Goals Short Term [...] from the original note were not included. [facility] Department of Pharmacy Pharmacy Renal Adjustment Note [...] 08/06/2024 8:19 PM EDT PerfectServe to Dr. Rodriguez for pain medication request. New orders received, see MAR * Lauren Gonzalez RN - 08/06/2024 7:42 PM EDT Hand Model at bedside to complete evening assessment. Upon entry to room, pt awake and in bed, respirations normal and unlabored while on 2 L via nasal cannula. Vitals obtained and assessment completed, see flow sheet for details. Pt denies needs from technical writer at this time. Call light in [...] wall 2012 History of cardiac cath 03/17/2020 [facility] Michael/Dr. Stephens/Left Radial History of cardiac cath [...] Value Date/Time PHART 7.355 12/13/2022 05:39 AM THU7XXS 46.8 12/13/2022 05:39 AM PO2ART 57.3 12/13/2022 05:39 AM K8JARMJD 88.5 12/13/2022 05:39 AM XBL6VQE 25.5 12/13/2022 05:39 AM PBEA NOT REPORTED [...] PM EDT [facility] as a direct admit [facility] Dr Rodriguez [...] lives with her son, was just at [facility] for the fall. Noticed wounds [...] Call light within reach. [facility] Discharge instructions* Discharge Instr - Activity* [...] be sent through Care Everywhere. * Cellulitis (Peruvian) [facility] course Narrative* Oliva Dunlap APRN - CNP - 08/10/2024 1:57 PM EDT Images from the original note were not included. Discharge Summary Jonatan C [place] : 1960 Admit date: 08/06/2024 Discharge date: [...] No rashes. No skin lesions. See below 08/06/20246274-Frvgikiuo-Pzyi Foot/Toes 08/06/2024-Admission--Right Foot/Toes Significant Diagnostic Studies: Lab [...] tissue gas. No focal intramuscular abnormality. Joint: Zear-wm-htdskwjo tricompartmental osteoarthritis of the knee joint. No [...] tissue gas. No focal intramuscular abnormality. Joint: Zgrp-bv-dkcoijgx tricompartmental osteoarthritis of the knee joint. No [...] tissue gas. No focal intramuscular abnormality. Joint: Vigx-yo-rpbzzfzh tricompartmental osteoarthritis of the knee joint. No [...] tissue gas. No focal intramuscular abnormality. Joint: Mnwg-nr-zbhhphcj tricompartmental osteoarthritis of the knee joint. No [...] plaque along the aorta and its branches. 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 Aortic graft [...] Problem List Diagnosis Date Noted Unstable angina ([facility]) 03/17/2020 Angina, class III 02/25/2018 Diabetic ulcer of toe of left foot associated with type 2 diabetes mellitus, with fat layer exposed([facility]) 01/24/2017 CAD S/P percutaneous coronary angioplasty 08/30/2013 [...] polyneuropathy associated with type 2 diabetes mellitus ([facility]) 01/24/2017 Tobacco abuse disorder 05/27/2014 Ventral hernia 08/30/2013 Fall 08/06/2024 Cellulitis of lower extremity, unspecified laterality 08/06/2024 Oxygen dependent - 2L per baseline 08/06/2024 Acute insomnia 07/27/2024 Diabetic ulcer of left heel associated with type 2 diabetes mellitus, with fat layer exposed ([facility]) 07/21/2024 Mouth sore 07/21/2024 Weight loss 06/24/2024 Closed fracture of pelvis ([facility]) 06/23/2024 Closed head injury 06/23/2024 Closed fracture [...] 03/18/2024 Erythematous condition, unspecified 03/07/2024 Myocardial infarction ([facility]) 03/02/2024 Presence of stent in coronary artery 03/02/2024 Pulmonary emboli ([facility]) 03/02/2024 Spondylosis of lumbar spine 03/02/2024 Spinal stenosis of lumbar region 03/02/2024 Breast cancer screening by mammogram 03/02/2024 Traumatic skin ulcer, limited to breakdown of skin ([facility]) 01/10/2024 Ulcer of left great toe due to diabetes mellitus ([facility]) 01/10/2024 Acute lower GI bleeding 01/09/2024 Upper GI bleed 01/09/2024 Transient alteration of awareness 01/09/2024 Acute lower gastrointestinal hemorrhage 01/09/2024 Lower GI bleed 01/09/2024 Vomiting 01/06/2024 Chronic coughing 08/13/2023 Allergic rhinitis 08/13/2023 COPD with acute exacerbation ([facility]) 07/12/2023 Elevated hemoglobin A1c 06/10/2023 Generalized abdominal [...] organism 04/23/2019 COPD (chronic obstructive pulmonary disease) ([facility]) Diabetes mellitus ([facility]) Hypertension Community acquired bacterial pneumonia 04/21/2019 COPD exacerbation ([facility]) 06/06/2018 COPD with exacerbation ([facility]) 06/05/2018 Hx of blood clots CAD (coronary artery disease) Severe obesity ([facility]) 11/05/2017 Laceration of nose 10/22/2017 Postoperative state [...] the lungs daily vitamin D 1.25 MG (37528 UT) Caps capsule Commonly known as: ERGOCALCIFEROL [...] Your Medications These medications were sent to [facility] - [place], [place] - [address] - P [phone] - F [phone] [place] [address] amoxicillin-clavulanate 875-125 MG per tablet metFORMIN 500 MG tablet povidone-iodine 10 % external solution Patient Instructions: Activity: activity as tolerated Diet: regular diet Wound Care: none needed Other: na Disposition: Discharge to Home with home health Follow up: Patient will be followed by Osmar Rodriguez MD in 1-2 weeks CORE MEASURES on Discharge (if applicable) FAUSTO/ARB in CHF: NA Statin in [place]: NA ASA in AK: NA Statin in CVA: NA Antiplatelet in CVA: NA Total time spent on discharge services: 40 minutes Including the following activities: Evaluation and Management of patient Discussion with patient and/or surrogate about current care plan Coordination with Case Management and/or Bone Drier Coordination of care with Consultants (if applicable) Coordination of care with Receiving Facility Physician (if applicable) Completion of DME forms (if applicable) Preparation of Discharge Summary Preparation of Medication Reconciliation Preparation of Discharge Prescriptions Signed: Oliva Dunlap APRN - FABIENNE, O AND M SUPERVISOR, SENIOR LIBRARIAN-C 08/10/2024, 1:57 PM Please note that this chart was generated using voice recognition Mobileum dictation software. Although every effort was made to ensure the accuracy of this automated practice performance manager, some errors in practice performance manager may have occurred. Cosigned by Osmar Rodriguez MD at 08/10/2024 6:52 PM EDT Associated attestation - Osmar Rodriguez MD - 08/10/2024 6:52 PM EDT Images from the original note were not included. [address], [address] Attestation Patient: Jonatan Olivarez Date of Admission: 08/06/2024 1:44 PM Hospital Day # 4 Date of Evaluation: 08/10/2024 I personally evaluated and examined the patient [id number] in conjunction with the PA/SENIOR LIBRARIAN and agree with the management and dispostition of the patient. Please see the PA/SENIOR LIBRARIAN's note for full details.My sims findings are: [...] care plan Coordination with Case Management and/or Bone Drier Coordination of care with Consultants (if applicable) [...] this chart was generated using voice recognition ModiFaceon dictation software. Although every effort was made to ensure the accuracy of this automated practice performance manager, some errors in practice performance manager may have occurred. Osmar Rodriguez MD 08/10/2024 6:51 PM documented in this encounterBon [facility] Miscellaneous Notes* Telephone Encounter - Lawandajeanette Francis - 08/07/2024 12:37 PM EDT The patient was a no show today. Hand Model unable to LVM requesting patient call back to schedule another appointment. Unable to complete call. [facility] Telephone encounter Note* Telephone Encounter - Lawanda Francis - 08/07/2024 12:37 PM EDT The patient was a no show today. Hand Model unable to LVM requesting patient call back to schedule another appointment. Unable to complete call. [facility]04-[facility] Miscellaneous Notes* Telephone Encounter - Libertad Vargas MA - 07/17/2024 9:20 AM EDT [facility] [place] [address] New referral received by [facility] Medication Management for diabetes. Patient was contacted to schedule appointment at [facility] [place] ([facility]). This was my first attempt to reach the patient and was able to schedule the patient on 08/07/24 at [facility] POC. Patient will be asked to bring [facility] Additional Info: Medication List and Blood Glucose Meter, and glucometer Referring provider: Alondra Amado APRNAIDAN documented in this encounterM[facility]04-18-2025 Telephone encounter Note* Telephone Encounter - Libertad Vargas MA - 07/17/2024 9:20 AM EDT [facility] MEDICATION [facility]NAG[facility] [address] [facility] [address] New referral received by [facility] Medication Management for diabetes. Patient was contacted to schedule appointment at [facility] [place] ([facility]). This was my first attempt to reach the patient and was able to schedule the patient on 08/07/24 at [facility] POC. Patient will be asked to bring [facility] Additional Info: Medication List and Blood Glucose Meter, and glucometer Referring provider: YOVANY Tang [facility]10-23-[facility]24 Progress note Author Luis Fernando Strauss [facility] January 22, 2024 8:47pmNote Date/TimeOct2023 7:37pm[place] [address] Hospitalist Progress Note Signed Patient: Jonatan Olivarez MR#: [id number] : 1960 Acct:[id number] Age/Sex: 63 / F Adm Date: 4 Loc: 3T Room: [address] [place] [address] Type: ADM IN Attending Dr: Luis Fernando [...] Documented By: Luis Fernando Strauss MD 4 [id number] Signed By: <Electronically signed by Luis Fernando Strauss MD> 01/22/242046 <Electronically signed by MD IDALMIS Naqvi> 01/22/241938 [facility] Work Phone: 1(509) 845-148910-23-2024 Progress note Author Ziggy Barraza [facility] January 22, 2024 8:36pmNote Date/TimeOctober 2023 8:[address] [address] Progress Note Signed Patient: Jonatan Olivarez MR#: [id number] : 1960 Acct:[id number] Age/Sex: 63 / F Adm Date: 4 Loc: 3T Room: [address] [place] [address] Type: ADM IN Attending Dr: Luis Fernando [...] <Electronically signed by MD Ziggy Barraza> 01/22/242035 [facility] Work Phone: 1(232) 407-459210-23-2024 Consult note Author Artur Guo [facility] January 22, 2024 2:41pmNote Date/TimeOctober 2023 6:[address] [address] Vascular Surgery Consult Note Signed Patient: Jonatan Olivarez MR#: [id number] : 1960 Acct:[id number] Age/Sex: 63 / F Adm Date: 4 Loc: 3T Room: [address] [place] [address] Type: ADM IN Attending Dr: Luis Fernando [...] course summary from her discharge paperwork from [facility].She was admitted for gastrointestinal bleed for which [...] attest to her recent GI bleed at [facility] and does know that she was [...] negative unless noted below or in HPI COUNT INCLUDES THE [facility] Medical History (Updated 01/21/24 @ 11:56 [...] % (Auto) 73.1 Lymph % (Auto) 16.0 [place] % (Auto) 7.0 Eos % (Auto) 2.2 Baso % (Auto) 1.7 Nucleat RBC Rel Count 0.1 Neut # (Auto) 5.4 Lymph # (Auto) 1.2 [place] # (Auto) 0.5 Eos # (Auto) 0.2 [...] 70.9 67.9 Lymph % (Auto) 19.2 19.9 [place] % (Auto) 6.8 7.9 Eos % (Auto) 2.2 2.5 Baso % (Auto) 0.9 1.8 Nucleat RBC Rel Count 0.2 0.1 Neut # (Auto) 5.0 4.2 Lymph # (Auto) 1.3 1.2 [place] # (Auto) 0.5 0.5 Eos # (Auto) [...] Ratio Vitamin B12 Folate TSH 3rd Generation [employer] 01/20/24 04:06 Corrected WBC 5.7 Uncorrected WBC Count 5.7 RBC 2.53 L Hgb 7.7 L Hct 23.6 L MCV 93.4 MCH 30.4 MCHC 32.6 RDW 20.9 H Plt Count 237 MPV 7.7 Neut % (Auto) 65.9 Lymph % (Auto) 20.4 [place] % (Auto) 9.3 Eos % (Auto) 2.9 Baso % (Auto) 1.5 Nucleat RBC Rel Count 0.2 Neut # (Auto) 3.7 Lymph # (Auto) 1.2 [place] # (Auto) 0.5 Eos # (Auto) 0.2 [...] 398 Folate 6.5 TSH 3rd Generation 3.03 COVIDLegitTrader Com PT 10.4 Seconds (9.0-12.9) 01/19/24 16:42 [...] [facility] [...] dateof consult. I also spoke with our professional housing consultant Dr. Milton rosenberg. The plan will be for a trial of blood thinners and doubling the proton pump inhibitor inhibitor. If she fails this we will place a filter. Documented By: Artur Guo MD 01/20/24 1547 Signed By: <Electronically signed by Artur Guo MD> 01/22/24 1441 <Electronically signed by HILDA Joyce> 01/21/24 0600 [facility] Work Phone: 1(334) 401-410310-22-2024 Progress note Author Luis Fernando Strauss [facility] January 21, 2024 1:37pmNote Date/TimeOctober 2023 12:19pm[place] [address] Hospitalist Progress Note Signed Patient: Jonatan Olivarez MR#: [id number] : 1960 Acct:[id number] Age/Sex: 63 / F Adm Date: 4 Loc: Room: [address] [place] [address] Type: ADM IN Attending Dr: Luis Fernando [...] PCI Reportedly had chest pain at the [facility] prior to arrival. Patient recently had stents [...] <Electronically signed by MD IDALMIS Naqvi> 01/21/24 121 [facility] Work Phone: 1(879) 159-642010-22-2024 Progress note Author Ziggy Barraza [facility] January 21, 2024 11:18amNote Date/TimeOct2023 11:12[place] [id number] Pulmonology Progress Note Signed Patient: Jonatan Olivarez MR#: [id number] : 1960 Acct:[id number] Age/Sex: 63 / F Adm Date: 4 Loc: Room: [address] [place] [address] Type: ADM IN Attending Dr: Luis Fernando Strauss MD Copies to: ~ Date of Service: 01/21/2024 Subjective Subjective Narrative: Patient is much more awake and alert today. She inquires as to when she can be discharged to home with patient getting all her care in [facility]. Exam Physical Exam Vital Signs: Temp [...] <Electronically signed by MD Ziggy Barraza> 01/21/24 111 [facility] Work Phone: 1(262) 683-857710-21-2024 Consult note Author Natalia Murrell [facility] January 20, 2024 2:48pmNote Date/TimeOct2023 2:40pm[place] [address] Cardiology Consult Note Signed Patient: Jonatan Olivarez MR#: [id number] : 1960 Acct:[id number] Age/Sex: 63 / F Adm Date: 4 Loc: Room: [address] [place] [address] Type: ADM IN Attending Dr: Luis Fernando [...] was recently evaluated for GI bleed in [place] as described in the EMR Patient has known coronary artery disease with previous PCI's details of which are unavailable and recent heart catheterization 8 to 9 months ago with no intervention in [place]. Patient is a very poor historian, falling [...] procedures were greater than 12 months ago. COUNT INCLUDES THE [facility] Medical History (Updated 01/20/24 @ 14:47 [...] # (Auto) 1.2 1.3 1.2 (1.00-4.8) x10E3/uL [place] # (Auto) 0.5 0.5 0.5 (0.0-0.8) x10E3/uL Eos # (Auto) 0.2 0.2 0.2 (0.0-0.45) x10E3/uL Baso # (Auto) 0.1 0.1 0.1 (0.0-0.2) x10E3/uL 01/20/24 Range/Units 04:06 RBC 2.53 L (3.60-5.00) X10E6/uL Hgb 7.7 L (11.8-15.4) g/dL Hct 23.6 L (34.0-46.4) % Plt Count 237 (150-450) x10E3/uL Neut # (Auto) 3.7 (1.8-7.7) x10E3/uL Lymph # (Auto) 1.2 (1.00-4.8) x10E3/uL [place] # (Auto) 0.5 (0.0-0.8) x10E3/uL Eos # [...] ,000 ml @ 100 mls/hr IV .Q10H [facility] Rx#:[id number] Oral 150 / 150 150 / 350 [...] Code(s): I25.10 - Atherosclerotic heart disease of [place] coronary artery without angina pectoris (2) Hypotension: [...] <Electronically signed by Natalia Murrell DO> 01/20/24 5385 [facility] Work Phone: 1(146) 188-446010-21-2024 Consult note Author Ziggy Barraza [facility] January 20, 2024 2:09pmNote Date/TimeOct2023 11:57[place], [place] [address] Pulmonology Consult Note Signed Patient: Jonatan Olivarez MR#: [id number] : 1960 Acct:[id number] Age/Sex: 63 / F Adm Date: 4 Loc: Room: [address] [place] [address] Type: ADM IN Attending Dr: Luis Fernando [...] This is the patient's first visit to [facility] with patient living in [place] and reportedly getting some of her care in [facility]. Patient reportedly had been recently discharged from hospitalization in [place] with a bleeding ulcer. The patient also [...] were remote and [facility]. She thinks she is at the [facility] but does report it is 2023. Review of Systems Review of Systems All other systems reviewed & are negative unless noted below or in HPI (though patient is poor historian) COUNT INCLUDES THE [facility] Medical History (Updated 01/19/24 @ 23:00 [...] 01/19/24 CT/CT angio chest PE protocol: f ([id number]) CT/CT abdomen pelvis w con: f CLINICAL [...] * Agree with obtaining prior records from [facility] regarding concerns for gastrointestinal bleeding * Obtain [...] <Electronically signed by MD Ziggy Barraza> 01/20/24 3904 [facility] Work Phone: 1(189) 720-649810-21-2024 Progress note Author Luis Fernando Strauss [facility] January 20, 2024 12:32pmNote Date/TimeOct2023 11:42[place], [place] [address] Hospitalist Progress Note Signed Patient: Jonatan Olivarez MR#: [id number] : 1960 Acct:[id number] Age/Sex: 63 / F Adm Date: 4 Loc: Room: [address] [place] [address] Type: ADM IN Attending Dr: Luis Fernando [...] She was just discharged 2days ago from [facility] for upper GI ulcers from what [...] PCI Reportedly had chest pain at the [facility] prior to arrival. Patient recently had stents placed. Was also hypotensive on presentation. CT of the chest did demonstrate PE. Patient would likely have contraindication to starting anticoagulation given recent gastric ulcers. Will obtain discharge summary for further understanding of findings at [facility] 2 days ago. -Hold off on [...] mg daily only -Obtain medical records from [facility] -Monitor CBC closely -Continue subcu heparin [...] signed by Luis Fernando Strauss MD> 01/20/24 1238 [facility] Work Phone: 1(680) 930-801610-14-2024 Miscellaneous Notes* Telephone Encounter - Neema Myles [...] - 01/13/2024 3:12 PM EDT 1st attempt: Hand Model contacted patient's friend, Kimmie Posada, (NOT ON HIPAA) and informed them thatwe have received a request from clinical staff to schedule an outpatient neurology follow up appointment with our clinic and offered to do so. Kimmie stated that they will call us back at another time to do, as she is currently admitted to [facility] because of a blood clot - Kimmie has patient's cell phone at this time. Hand Model informed patient that their referral is valid for up to one year, so they are able to give us a call at any time within that year to schedule - patient expressed understanding. [facility] Telephone encounter Note* Telephone Encounter - [...] clinic visit. Best Regards, Boaz Bender MD [facility] [phone] Telephone encounter Note* Telephone Encounter - Wendy Woods - 01/13/2024 3:12 PM EDT 1st attempt: Hand Model contacted patient's friend, Kimmie DorisLaurelEliezer, (NOT ON HIPAA) and informed them thatwe have received a request from clinical staff to schedule an outpatient neurology follow up appointment with our clinic and offered to do so. Kimmie stated that they will call us back at another time to do, as she is currently admitted to [facility] because of a blood clot - Kimmie has patient's cell phone at this time. Hand Model informed patient that their referral is valid for up to one year, so they are able to give us a call at any time within that year to schedule - patient expressed understanding. [facility] [id number] Miscellaneous Notes* Telephone Encounter - SHANTANU Rosenbaum [...] Please schedule EGD 8 weeks from 01/10/24 TTH/MA ASA 4 MAC Order in * Telephone [...] cc'ed you FYI. [facility] Tele[facility] encounter Note* Telephone Encounter - SHANTANU Rosenbaum - 01/13/2024 1:29 PM EDT ----- Message from USHA Mauricio sent at 01/13/2024 1:24 PM EDT ----- Regarding: Hospital follow-up Patient was seen in the hospital with upper GI bleed. Status post EGD with Dr. Angeles. Please schedule her for repeat EGD in [address] Angeles [facility]10-14-2024 Telephone encounter Note* Telephone Encounter - Irena Vallejo CMA - 01/13/2024 1:29 PM EDT Please schedule EGD 8 weeks from 01/10/24 TTH/FL ASA 4 MAC Order in [facility]10-14-2024 Telephone encounter Note* Telephone Encounter - Stacy Ganllo - 01/13/2024 1:29 PM EDT Left a message with my name and call back number. [facility] Tele[facility] Note* Telephone Encounter - Jazmine Gutierrez MD - 01/13/2024 1:29 PM EDT Just FYI: Repeat EGD on 01/16(due to slight hemoglobin drop) showed clean based antral ulcers. Clips are not in place anymore. Gastric biopsies were taken. Patient will still need repeat EGD in [address] Angeles. Please schedule. , I cc'ed you FYI. Thanks [facility] Work Phone: 1(796) 648-878804-22-2023 Hospital Discharge instructions* Discharge Instructions* Jorge Cortez [...] sent through Care Everywhere. * Fall Prevention (Peruvian) * Low Back Contusion (Peruvian) [facility] [employer] Work Phone: 1(888) 791-354001-27-2023 History and physical note* YOVANY Owen - [...] Laterality: N/A; Surgeon: Pedrito Pickett MD; Location: [facility] Left HYSTERECTOMY The patient's [...] Body mass index is 25.51 kg/m . [facility] Ms. Olivarez is a well nourished [...] Tobacco Cessation Referral due to residing in [place]. Spent 3-5 minutes counseling on this topic. [...] check Electronically Signed By: YOVANY Shaver [facility], Division of General & Gastrointestinal Surgery [address], [address], [place] [address] Office 05/04/2022 8:34 AM [facility]01-27-2023 History and physical note* YOVANY Owen - [...] Tobacco Cessation Referral due to residing in [place]. Spent 3-5 minutes counseling on this topic. [...] check Electronically Signed By: YOVANY Shaver [facility] for Minimally Invasive Surgery, Division of General & Gastrointestinal Surgery [address], [address] [place] [address] [address], [place] [id number] Office 05/04/2022 8:34 AM documented in [facility]WV[facility]-27-2023 Instructions* Patient Instructions* YOVANY Owen - 04/27/2022 [...] and increase the risk of infection. THE [place] TOBACCO QUIT LINE ( ) The hotline is available to uninsured [place], Medicated recipients, women and members of the [place] Tobacco Collaborative. Provides expert advice and support, personalized Quit plan and self-help materials, and free nicotine patches. Hours are Saturday-Saturday 9am - 11pm, Saturday and Saturday 10:30am - 6:30pm, Voicemail services are available 22/10 [facility] - Tobacco Cessation Clinic is a pharmacist-run physician-supervised clinic providing consultation and support services to those thinking about or who are ready to quit nicotine use. Call [phone](Quit) for an appointment. ONLINE QUIT GUIDES & RESOURCES [place] [employer]: Guide to Quitting Smoking http://www.cancer.org/Healthy/StayAway fromTobacco/GuidetoQuittingSmoking/index Quit line for resources or to talk with a counselor near you [place] [employer] http://www.heart.org/HEARTORG/GettingHealthy/ QuitSmoking/Quit- Smoking_[facility]_001085_ SubHomePage.jsp [place] [employer] Association http://www.lungusa.org/stop-smoking/how-to-quit/ http://www.ffsonline.org or call 356-003-8741 National Cancer [place]: Smokefree.gov www.smokefree.gov Smokefree QuitGuide Smartphone Application Quit line Center for Disease Control Prevention www.CDC.gov/tobacco [place] [employer]: Free Patient Education Materials http://www.aafp.org/online/en/home/clinical/ publichealth/tobacco/resources.html The Department of Health and Human Services https://BeTobaccoFree.gov documented in this [facility]07-08-2022 NotePROCEDURE: 3Leaf Signa HDXT 1.5 Sagittal T1, T2, STIR [...] signed by Dwight Goel on 10/06/2021 1337[facility]04-20-[facility] History and physical note* Leighton Tabares MD [...] using Monitored Anesthesia Care. Pedrito Pickett MD [facility]04-20-2022 History and physical note* Leighton Tabares MD [...] Care. Pedrito Pickett MD documented in this [facility]WV[facility]12-19-2021 Hospital course Narrative* Caren Mera MD - 03/19/2021 1:16 PM EST Physician Discharge Summary Caren Mera MD Patient ID: Jonatan Olivarez [id number] Admission date: 03/17/2021 Discharge date: 03/19/2021 Admitting Physician: No att. providers found Primary Care Physician: Osmar Rodriguez MD Primary Discharge Diagnoses: Patient Active Problem List Diagnosis Date Noted Unstable angina ([facility]) 03/17/2020 Angina, class III ([facility]) 02/25/2018 Diabetic ulcer of toe of left foot associated with type 2 diabetes mellitus, with fat layer exposed([facility]) 01/24/2017 CAD S/P percutaneous coronary angioplasty 08/30/2013 Mild malnutrition ([facility]) 02/22/2021 Diabetic polyneuropathy associated with type 2 diabetes mellitus ([facility]) 01/24/2017 Ventral hernia 08/30/2013 Acute on chronic diastolic heart failure ([facility]) 03/18/2021 Cellulitis of left lower extremity 02/21/2021 S/P cardiac cath 03/18/2020 S/P angioplasty with stent 03/18/2020 Acute coronary syndrome ([facility]) 03/17/2020 E. coli UTI 07/20/2019 AMS (altered mental status) 07/18/2019 Acute on chronic respiratory failure with hypercapnia ([facility]) 07/18/2019 Acute on chronic respiratory failure with hypoxemia ([facility]) 04/23/2019 Pneumonia due to infectious organism 04/23/2019 COPD (chronic obstructive pulmonary disease) ([facility]) Diabetes mellitus ([facility]) Hypertension Community acquired bacterial pneumonia 04/21/2019 COPD exacerbation ([facility]) 06/06/2018 COPD with exacerbation ([facility]) 06/05/2018 Acute respiratory failure with hypoxia and hypercapnia ([facility]) 06/05/2018 Hx of blood clots CAD (coronary artery disease) Tobacco abuse counseling 05/27/2014 Tobacco abuse disorder 05/27/2014 Atherosclerosis of artery of extremity with intermittent claudication ([facility]) 05/27/2014 Dizziness 05/27/2014 Intolerance of drug 05/27/2014 Atherosclerosis of both carotid arteries 05/27/2014 Hypothyroidism 05/27/2014 Abnormal nuclear stress test 01/22/2013 Smoking greater than 40 pack years 01/22/2013 Claudication in peripheral vascular disease ([facility]) 11/06/2012 Stable angina ([facility]) 11/06/2012 Additional Diagnoses: Diagnosis Date Asthma Back problem Bulging discs (2 or 3), 1 cracked & 1 blackened discs CAD (coronary artery disease) stents x 3; BMS to LAD 12/2010;SPARKLE to RCA 01/2011, NL LV COPD (chronic obstructive pulmonary disease) ([facility]) Depression Diabetes mellitus ([facility]) Edema chevy legs feet H/O cardiac catheterization 01/01/2011 H/O echocardiogram 09/03/2019 EF 65% evidence of mild grade I diastolic dysfunction seen Hernia of abdominal wall 2013 History of cardiac cath 03/17/2020 [facility] Michael/Dr. Stephens/Left Radial History of cardiac cath [...] LOWER EXTREMITY VENOUS BILATERAL Result Date: 03/17/2021 [facility] Vascular Lower Extremities DVT Study Procedure Patient Name NEW HARMONY Date of Study 03/17/2021 JONATAN C Date of 1960 Gender Female Age 60 year(s) Race Room Number 01A Corporate ID # [id number] Patient MR # [id number] Home Energy Inspector Corrine Peterson Interpreting Physician Jose Mercer MD Referring Nurse Fredy Billingsley, Referring Physician Practitioner O AND M SUPERVISOR-FABIENNE Procedure Type of Study: Veins: Lower Extremities [...] ms QTc Calculation (Bazett) 403 ms P Fajardo 62 degrees R Fajardo 78 degrees T Fajardo 51 degrees Basic Metabolic Panel Collection Time: [...] # 1.26 1.10 - 3.70 k/uL Absolute [place] # 0.46 0.10 - 1.20 k/uL Absolute [...] # 1.29 1.10 - 3.70 k/uL Absolute [place] # 0.48 0.10 - 1.20 k/uL Absolute [...] NEGATIVE NEGATIVE Ketones, Urine NEGATIVE NEGATIVE Specific [place], UA 1.020 1.010 - 1.020 Urine Hgb [...] 1.05 (L) 1.10 - 3.70 k/uL Absolute [place] # 0.48 0.10 - 1.20 k/uL Absolute [...] 0.94 (L) 1.10 - 3.70 k/uL Absolute [place] # 0.39 0.10 - 1.20 k/uL Absolute [...] Your Medications These medications were sent to [address] [facility] - [phone] - F [phone] [address] [facility] [address] doxycycline hyclate 100 MG tablet furosemide 20 [...] M.D. 03/19/2021 1:17 PM documented in this [facility] Work Phone: 1(790) 977-587312-17-2021 Note [facility] Vascular Lower Extremities DVT Study Procedure Patient Name SHER Date of Study 03/17/2021 JONATAN Phillips Date of 1960 Gender Female Age 60 year(s) Race Room Number 01A Corporate ID # [id number] Patient MR # [id number] Home Energy Inspector Corrine Peterson Interpreting Physician Jose Mercer MD Referring Nurse Fredy Billingsley, Referring Physician Practitioner O AND M SUPERVISOR-STUDENT COUNSELLOR Procedure Type of Study: Veins: Lower Extremities [...] Ankle !Yes !Yes !None (more content not included)...[facility] 02-09-2021 Hospital Discharge instructions* Instructions* Zach Bocanegra PA-C - 02/09/2021 Ice to affected area Tylenol Motrin for pain if needed Gentle range of motion Plenty of fluids Rise from seated position slowly See your doctor for recheck * Attachments The following attachments cannot be sent through Care Everywhere. * Contusion (Peruvian) * Head Injury: Closed: General Info (Peruvian) documented in this encounterTuscarawas HospitalSAJE Pharma Work Phone: [phone]) [phone] Evaluation note Includes: Assessments for all patient encounters Findings Encounter Date Depressive disorder Established Patie nt with Leah Short [facility] 09/24/2019 Generalized anxiety disorder Establis hed Patient with Leah Short [facility] 09/24/2019 M54.5 - Low back pain Medical Establishe d Patient with Shawna Holliday [facility] 09/24/2019 Obesity due to excess calories Medical E stablished Patient with Shawna Holliday [facility] 09/24/2019 Z68.25 - Body mass index (BM I) 25.0-25.9, adult Medical Established Patient with Shawna Holliday STUDENT COUNSELLOR 09/24/2019 Depressive disorder Telebehavioral He alth with Leah Short [facility]IS[facility] 09/15/2019 Generalized anxiety disorder [facility] with Leah Short LISWS 09/15/2019 Depressive disorder Telebehavioral He alth with Leah Short [facility] 08/26/2019 Generalized anxiety disorder [facility] with Leah Arroyo [facility]IS[facility] 08/26/2019 Z68.37 - Body mass index (BM I) 37.0-37.9 adult Medical Established Patient with Vahid Breweren STUDENT COUNSELLOR 05/01/2019 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 Established Patient with Zach Grimaldo [facility] 04/14/2019 F41.1 - Generalized anxiety disorder Established Patient with Zach Grimaldo [facility] 04/14/2019 Obesity due to excess calories Medical E stablished Patient with Vahid Angelita STUDENT COUNSELLOR 04/14/2019 Z68.36 - Body mass index (BM I) 36.0-36.9 adult Medical Established Patient with Vahid Angelita STUDENT COUNSELLOR 04/14/2019 Obesity due to excess calories Medical E stablished Patient with Vahid Angelita STUDENT COUNSELLOR 03/20/2019 Z68.36 - Body mass index (BM I) 36.0-36.9 adult Medical Established Patient with Vahidchristiano Breweren STUDENT COUNSELLOR 03/20/2019 Acute atopic conjunctivitis [Acute atopic conjunctivitis left eye] Medical Established Patient with Elena King [facility] 03/03/2019 Acute sinusitis Medical Established Patient with Elena King STUDENT COUNSELLOR 03/03/2019 Body mass index [Body mass i ndex (BMI) 35.0-35.9 adult] Medical Established Patient with Elena King [facility] 03/03/2019 Generalized anxiety disorder Establis hed Patient with Zach Grimaldo [facility] 02/19/2019 Nicotine dependence Established Patie nt with Zach Grimaldo [facility] 02/19/2019 Persistent depressive disord er (dysthymia) Established Patient with Zach Grimaldo [facility] 02/19/2019 Body mass index Medical Established Patient with Vahid Angelita STUDENT COUNSELLOR 02/19/2019 Generalized anxiety disorder Medical Est ablished Patient with Vahid Angelita STUDENT COUNSELLOR 02/19/2019 Lumbago Medical Established Patient with Vahid Angelita STUDENT COUNSELLOR 02/19/2019 Lumbar radiculopathy Medical Established Patient with Vahid Angelita STUDENT COUNSELLOR 02/19/2019 Obesity due to excess calories Medical E stablished Patient with Vahid Angelita STUDENT COUNSELLOR 02/19/2019 Body mass index Medical Established Patient with Vahid Angelita STUDENT COUNSELLOR 01/22/2019 Obesity due to excess calories Medical E stablished Patient with Vahid Angelita STUDENT COUNSELLOR 01/22/2019 Body mass index [Body mass i ndex (BMI) 35.0-35.9 adult] Medical Established Patient with Elena Malik [facility] 01/12/2019 Diabetes Risk Test Score was three score 01/12/2019 Medical Established Patient with Elena Malik [facility] 01/12/2019 Fagerstrom Score was 0 01/12/2019 Medica l Established Patient with Elena Malik [facility] 01/12/2019 Limb pain of shoulder region Medical Est ablished [facility] Obesity due to excess calories Medical E stablished Patient with Elena Malik [facility] 01/12/2019 PHQ-9: total score was 18 01/12/2019 Med ical Established [facility] 01/12/2019 Assess bronchitis Medical Established Patient with Vahid Nagy [facility] 12/11/2018 Irreducible ventral hernia Medical Estab lished Patient with Vahid Nagy [facility] 12/11/2018 Obesity due to excess calories Medical E stablished Patient with Vahid Nagy [facility] 12/11/2018 Z68.32 - Body mass index (BM I) 32.0-32.9 adult Medical Established Patient with Vahid Nagy [facility] 12/11/2018 Body mass index Medical Established Patient with Vahid Nagy [facility] 10/30/2018 Assess dermatitis Medical Established Patient with Vahid Nagy [facility] 09/30/2018 Assess urinary tract infection Medical E stablished Patient with Vahid Nagy [facility] 09/30/2018 Body mass index Medical Established Patient with Vahid Nagy [facility] 08/27/2018 Obesity due to excess calories Medical E stablished Patient with Vahid Nagy [facility] 08/27/2018 F17.210 - Nicotine dependenc e, cigarettes, uncomplicated BH Established Patient with Zachernestina Grimaldo [facility] 07/28/2018 F34.1 - Dysthymic disorder Establishe d Patient with Zach Grimaldo [facility] 07/28/2018 F41.1 - Generalized anxiety disorder Established Patient with Zach Grimaldo [facility] 07/28/2018 Assess diabetes mellitus Medical Establi shed Patient with Vahid Breweren [facility] 07/28/2018 Assess generalized anxiety disorder [facility] иван Established Patient with Vahidchristiano Breweren [facility] 07/28/2018 Assess lumbago Medical Established Patient with Vahid Nagy [facility] 07/28/2018 Assess perennial allergic rh initis with seasonal variation Medical Established Patient with Vahid Angelita [facility] 07/28/2018 Body mass index Medical Established Patient with Vahid Nagy [facility] 07/28/2018 Obesity due to excess calories Medical E stablished Patient with Vahid Nagy STUDENT COUNSELLOR 07/28/2018 Assess tobacco abuse Medical Established Patient with Vahid Nagy STUDENT COUNSELLOR 06/27/2018 Assessment of chronic lower back pain Me dical Established Patient with Vahid Nagy STUDENT COUNSELLOR 06/27/2018 Obesity due to excess calories Medical E stablished Patient with Vahid Nagy CNP 06/27/2018 Obesity due to excess calories Medical E stablished Patient with Vahid Nagy STUDENT COUNSELLOR 05/30/2018 [facility] Work Phone: 1(113) 428-899301-26-2020 History of Present illness Narrative* Sowmya Llanes [...] I am I being a bitch when client care coordinator entered to give timed medicationa * Gina [...] NL LV COPD (chronic obstructive pulmonary disease) ([facility]) Depression Diabetes mellitus (HCC) Edema chevy legs [...] Results Component Value Date PHART 7.332 04/23/2019 EMS5HDK 51.2 04/23/2019 PO2ART 61.2 04/23/2019 [id number] 89.6 04/23/2019 [id number] 26.5 04/23/2019 PBEA NOT REPORTED 04/23/2019 VITALS [...] Carb Control diet but just stares at technical writer and states I reallydon't care. Will [...] Intake/Output Summary (Last 24 hours) at 04/25/2019 0986 Last data filed at 04/25/2019 0559 Gross per 24 hour Intake 500 ml [...] 04/24/2019 3:36 PM EST Update Oliva Tristan SENIOR LIBRARIAN of pts elevated BP. * Susie Batista [...] M.D. 04/24/2019 7:01 AM * Berta Almanzar, [facility] - 04/24/2019 2:27 AM EST RESPIRATORY ASSESSMENT PROTOCOL Patient Name: Jonatan Phillips [place] Room#: I305/I305-01 : 1960 Admitting diagnosis: Community acquired bacterial pneumonia [J15.9] Medical History: Past Medical History: Diagnosis Date Asthma Back problem Bulging discs (2 or 3), 1 cracked & 1 blackened discs CAD (coronary artery disease) stents x 3; BMS to LAD 12/2010;SPARKLE to RCA 01/2011, NL LV COPD (chronic obstructive pulmonary disease) ([facility]) Depression Diabetes mellitus ([facility]) Edema chevy legs feet H/O cardiac catheterization [...] Results Component Value Date PHART 7.332 04/23/2019 [id number] 51.2 04/23/2019 PO2ART 61.2 04/23/2019 [id number] 89.6 04/23/2019 [id number] 26.5 04/23/2019 PBEA NOT REPORTED 04/23/2019 Blood [...] sleep. Lights turned off and informed patient technical writer will be in around 2100 for [...] 2.5L at this time. * Bea Mireles, MARBLE COPER - 04/23/2019 1:08 PM EST RESPIRATORY ASSESSMENT [...] NL LV COPD (chronic obstructive pulmonary disease) ([facility]) Depression Diabetes mellitus ([facility]) Edema chevy legs feet H/O cardiac catheterization [...] Results Component Value Date PHART 7.332 04/23/2019 [id number] 51.2 04/23/2019 PO2ART 61.2 04/23/2019 [id number] 89.6 04/23/2019 [id number] 26.5 04/23/2019 PBEA NOT REPORTED 04/23/2019 Blood [...] 12:28 PM EST Speech Language Pathology Facility/Department: [facility] ICU CLINICAL BEDSIDE SWALLOW TREATMENT AND [...] Normal in all situations Treatment Plan Requires CAPACITY ANALYST Intervention: No D/C Recommendations: Home independently Recommended [...] Patient Education Response: Verbalizes understanding Therapy Time CAPACITY ANALYST Individual Minutes Time In: 1205 Time Out: [...] regular diet, thin liquids. Katelyn Tubbs M.A. CF-CAPACITY ANALYST BERTRAND Ceron 04/23/2019 12:28 PM * Meredith [...] being hungry for 2-3 days. Seen by CAPACITY ANALYST, regular with thin OK. UBW almost 200#. [...] 5. Fluid Accumulation-No significant fluid accumulation, 6. Cra Officer Strength-Not measured Nutrition Risk Level: Low, Moderate [...] % Weight Change: , weight gain trend Hagan Body Wt: 105 lb (47.6 kg), % Hagan Body 185% BMI Classification: BMI 35.0 - [...] Pertinent Labs, Patient/Family Education, I&O Contact Number: [phone] * Brit Batista RN - 04/23/2019 10:21 [...] Tobacco abuse COPD (chronic obstructive pulmonary disease) ([facility]) Diabetes mellitus ([facility]) Hypertension Resolved Problems: * No resolved hospital [...] to patient. Continue to monitor. * Layla Flowers LSW - 04/22/2019 2:37 PM EST Met with Patient this p.m. She is a 58 year old , white female, admitted with Community Acquired Bacterial Pneumonia. Patient is alert and oriented, pleasant and cooperative with this assessment. She is sitting up in bedside chair at this time, hoping to be discharged back to her home when medically stable. Patient resides in [place] and her adult son lives with her. Patient uses home O2 and a nebulizer for assistance. Patient also has a cane which she uses as she needs to. Patient does her own cooking and her son assists her with the housekeeping. Patient does not drive and uses the local [employer] [place] transportation. PCP is Vahid Calderón CNP. Patient denies needing assistance with paying for her medications and reports that she does not even have a copay with any of her current medications. Discharge plan is home when medically stable. Patient would like a referral to be made for Meals onee program. Referral placed to [facility] Commission on Aging via telephone voicemail message for meals program. Patient is a 'Full Code' status. Would like information on executing Advanced Directives. [facility] as [facility]. Patient states that she has not used home health care in the past but is open to this as the doctorthinks it necessary. Provider list left for her review. LUNCH TRUCK DRIVER to monitor and assist wit discharge planning as needs arise. ELISSA Barbosa 04/22/2019 * Laurie Velasquez RN - 04/22/2019 12:09 PM EST SonJavier called and updated on ICU transfer and patient condition. * Katelyn Tubbs SLP - 04/22/2019 12:01 PM EST Speech Language Pathology Facility/Department: [facility] ICU CLINICAL BEDSIDE SWALLOW EVALUATION NAME: [...] Normal in all situations Treatment Plan Requires CAPACITY ANALYST Intervention: Yes Duration/Frequency of Treatment: x1 follow-up [...] Patient Education Response: Verbalizes understanding Therapy Time CAPACITY ANALYST Individual Minutes Time In: 1000 Time Out: 1025 Minutes: 25 ST recommends a one-time follow-up for meal assessment d/t pt's medical condition and risk factors associated with dysphagia. ST recommends regular, thin diet and x1 follow-up for meal assessment to confirm pt's tolerance of this diet. Katelyn Tubbs M.A. CF-CAPACITY ANALYST BERTRAND Ceron 04/22/2019 12:06 PM * Laurie [...] called out stating I have a headache. Hand Model informed patient that there was still an hour to go before being able to given PRN motrin. Patient stated that she felt miserable and requested something else. Hand Model asked if it was just her headache but patient stated it was her legs and armsthat hurt and she felt like she was going to get sick. Page out to Dr. De Santiago. * Blaise Darling, MARBLE COPER - 04/21/2019 10:36 PM EST RESPIRATORY ASSESSMENT [...] Results Component Value Date PHART 7.262 06/05/2018 VGI0XYZ 57.5 06/05/2018 PO2ART 60.2 06/05/2018 [id number] 86.9 06/05/2018 [id number] 25.3 06/05/2018 PBEA NOT REPORTED 06/05/2018 Blood [...] Will continue to monitor. documented in this [facility] Work Phone: 1(152) 723-424201-26-2020 Hospital course Narrative* Ziggy Smith MD - 04/26/2019 12:08 PM EST Ziggy Smith M.D. Internal Medicine Discharge Summary Patient ID: Jonatan Olivarez [id number] Admission date: 04/21/2019 Discharge date: 04/26/2019 Admitting Physician: Gordo De Santiago MD Primary Care Physician: Vahid Nagy, O AND M SUPERVISOR - STUDENT COUNSELLOR Primary Discharge Diagnoses: Community acquired bacterial pneumonia [...] obstructive pulmonary disease) (HCC) Depression Diabetes mellitus ([facility]) Edema chevy legs feet H/O cardiac catheterization [...] Discharge Medications: Jonatan Olivarez Home Medication Instructions LISBETH:[id number] Printed on:04/26/19 120 Medication Information albuterol (PROVENTIL) (2.5 MG/3ML) 0.083% [...] as needed for Pain Incontinence Supply Disposable [facility] Incontinence pads 150 per month. Please order [...] applicable) FAUSTO/ARB in CHF: N/A ASA in AK: N/A Statin in AK: N/A Statin in CVA: N/A Antiplatelet in CVA: N/A Total time spent on discharge services: 35 minutes Including the following activities: Evaluation and Management of patient Discussion with patient and/or surrogate about current care plan Coordination with Case Management and/or Bone Drier Coordination of care with Consultants (if applicable) Coordination of care with Receiving Facility Physician (if applicable) Completion of DME forms (if applicable) Preparation of Discharge Summary Preparation of Medication Reconciliation Preparation of Discharge Prescriptions Signed: Ziggy Smith M.D. 04/26/2019 12:08 PM documented [facility] this [facility] Phone: [phone]) 742-103601-12-2020 Hospital Discharge instructions* Instructions* Harish Sebastian DO [...] be sent through Care Everywhere. * Dizziness (Peruvian) * Shoulder Pain (Peruvian) documented in [facility] Phone: [email or web address] note* Diagnosis Pelvic pain- Primary documented in this encounter [employer] Phone: [email or web address] note* Diagnosis Near syncope- Primary Syncope and collapse Multiple contusions Contusion of multiple sites, not elsewhere classified Abrasion of right knee, initial encounter documented in this encounter [employer] Phone: evaluation note* Diagnosis Intractable vomiting with nausea, unspecified vomiting type- Primary documented in this encounter [employer] Phone: evaluation note Assessments not supported for this document type No Assessments [facility] Work Phone: Evaluation note* Diagnosis Closed head injury, initial encounter- Primary Fall, initial encounter Contusion of right knee, initial encounter documented in this encounter [employer] Phone: [email or web address] note* Diagnosis Acute on chronic diastolic heart failure (HCC)- Primary Acute on chronic diastolic heart failure Cellulitis of left lower extremity Cellulitis and abscess of leg, except foot Acute on chronic respiratory failure with hypoxia (HCC) Pneumonia due to infectious organism, unspecified laterality, unspecified part of lung Pleural effusion, bilateral Unspecified pleural effusion CAD S/P percutaneous coronary angioplasty Coronary atherosclerosis of [place] coronary artery Tobacco abuse disorder Tobacco use disorder Acute on chronic respiratory failure with hypoxemia (HCC) COPD (chronic obstructive pulmonary disease) (HCC) Chronic airway obstruction, not elsewhere classified documented in this encounter [employer] Phone: evaluation note* Diagnosis Chronic right hip pain Pain in joint, pelvic region and thigh Fall, initial encounter Right hip pain Pain in joint, pelvic region and thigh documented in this encounter [employer] Phone: Evaluation note* Diagnosis Urinary incontinence, unspecified type documented in this encounter [employer] Phone: [email or web address] note* Diagnosis Right sided abdominal pain Abdominal pain, unspecified site documented in this encounter [employer] Phone: evalzsfote note* Diagnosis Acute pain of left shoulder- Primary Dizziness Dizziness and giddiness documented in this encounter [employer] Phone: [email or web address] note* Diagnosis Community acquired bacterial pneumonia- Primary [...] S/P percutaneous coronary angioplasty Coronary atherosclerosis of [place] coronary artery Tobacco abuse Tobacco use disorder Acute on chronic respiratory failure with hypoxemia (HCC) Smoking greater than 40 pack years Tobacco use disorder documented in this encounter [employer] Phone: [email or web address] note Includes: Assessments for all patient encounters Findings Encounter Date Assess tobacco abuse Established Patient with Vahid Nagy CNP 06/27/2018 Assessment of chronic lower back pain Es tablished Patient with Vahid Nagy CNP 06/27/2018 Obesity due to excess calories Establish ed Patient with Vahid Nagy [facility] 06/27/2018 Obesity due to excess calories Establish ed Patient with Vahid Nagy CNP 05/30/2018 [facility] Work Phone: Evaluation note* Diagnosis Chronic right hip pain Pain in joint, pelvic region and thigh documented in this encounter [employer] Phone: [email or web address] note* Diagnosis Recurrent abdominal hernia without obstruction or gangrene, unspecified hernia type Right lower quadrant abdominal mass Abdominal or pelvic swelling, mass, or lump, right lower quadrant documented in this encounter [employer] Phone: [email or web address] note* Diagnosis Ventral hernia without obstruction or gangrene- Primary Ventral hernia, unspecified, without mention of obstruction or gangrene Tobacco use Tobacco use disorder [facility] Diagnosis Contusion of coccyx, initial encounter- Primary Fall, initial encounter documented in this encounter [employer] Phone: evaluation note* Diagnosis Primary hypertension Unspecified [...] Chronic pain syndrome documented in this encounter [employer] Phone: evaluation note* Diagnosis Coccyx pain- Primary Other disorder of coccyx documented in this encounter [employer] Phone: evalwvwrii note* Diagnosis Chronic obstructive pulmonary disease, unspecified COPD type (HCC) Chronic right hip pain Pain in joint, pelvic region and thigh Sacral pain Disorders of sacrum Lumbar back pain with radiculopathy affecting right lower extremity Chronic left hip pain Pain in joint, pelvic region and thigh documented in this encounter [employer] Phone: evaluation note* Diagnosis Onset Date Resolution Status Chest pain acuteHeart failureacuteHypotensionacuteHypoxiaacuteNonspecific ST-T wave electrocardiographic changesacutePulmonary [facility] Work Phone: Evaluation note* Diagnosis Onset Date Resolution Status Anemia acuteCAD (coronary artery disease)acuteChest painacuteH/O heart artery stent acuteHypotensionacuteHypoxiaacuteNonspecific ST-T wave electrocardiographic changesacutePulmonary emboliate [facility] Work Phone: Evaluation note* Diagnosis Gastrointestinal hemorrhage, unspecified gastrointestinal hemorrhage type- Primary Chronic gastrointestinal hemorrhage Unspecified, hemorrhage of gastrointestinal tract Gastric ulcer without hemorrhage or perforation, unspecified chronicity documented in this encounter [facility]* Diagnosis Hypothyroidism- Primary Unspecified hypothyroidism Claudication in peripheral vascular disease Peripheral vascular disease, unspecified ASHD (arteriosclerotic heart disease) Coronary atherosclerosis of unspecified type of vessel, [place] or graft Atherosclerosis of both carotid arteries Occlusion and stenosis of carotid artery without mention of cerebral infarction Intolerance of drug Other drug allergy Dizziness Dizziness and giddiness Atherosclerosis of artery of extremity with intermittent claudication Tobacco abuse Tobacco use disorder Tobacco abuse counseling Counseling on substance use and abuse CAD S/P percutaneous coronary angioplasty Coronary atherosclerosis of [place] coronary artery COPD with acute exacerbation (HCC)- [...] Coronary atherosclerosis of unspecified type of vessel, [place] or graft Oxygen dependent - 2L per baseline Dependence on supplemental oxygen Severe malnutrition Nutritional marasmus documented [facility]* Diagnosis Hypothyroidism- Primary Unspecified hypothyroidism Claudication in peripheral vascular disease Peripheral vascular disease, unspecified ASHD (arteriosclerotic heart disease) Coronary atherosclerosis of unspecified type of vessel, [place] or graft Atherosclerosis of both carotid arteries Occlusion and stenosis of carotid artery without mention of cerebral infarction Intolerance of drug Other drug allergy Dizziness Dizziness and giddiness Atherosclerosis of artery of extremity with intermittent claudication Tobacco abuse Tobacco use disorder Tobacco abuse counseling Counseling on substance use and abuse CAD S/P percutaneous coronary angioplasty Coronary atherosclerosis of [place] coronary artery COPD with acute exacerbation (HCC)- [...] Chronic pain syndrome documented in this encounter [facility] note* Diagnosis Hypothyroidism- Primary Unspecified hypothyroidism Claudication in peripheral vascular disease Peripheral vascular disease, unspecified ASHD (arteriosclerotic heart disease) Coronary atherosclerosis of unspecified type of vessel, [place] or graft Atherosclerosis of both carotid arteries Occlusion and stenosis of carotid artery without mention of cerebral infarction Intolerance of drug Other drug allergy Dizziness Dizziness and giddiness Atherosclerosis of artery of extremity with intermittent claudication Tobacco abuse Tobacco use disorder Tobacco abuse counseling Counseling on substance use and abuse CAD S/P percutaneous coronary angioplasty Coronary atherosclerosis of [place] coronary artery COPD with acute exacerbation (HCC)- [...] Disorders of sacrum documented in this encounter [facility]* Diagnosis Pain- Primary Generalized pain documented in this encounter [facility]* Diagnosis Acute cystitis without hematuria- Primary Acute cystitis without hematuria Hypoxia Hypoxemia Hypothyroidism Unspecified hypothyroidism Controlled type 2 diabetes mellitus with diabetic peripheral angiopathy and gangrene, without long-term current use of insulin ([facility]) A-fib ([facility]) Atrial fibrillation Type 2 diabetes mellitus with diabetic foot infection ([facility]) COPD with acute exacerbation ([facility]) Tobacco abuse Tobacco use disorder Hyperlipidemia Other and unspecified hyperlipidemia Primary hypertension Unspecified essential hypertension Osteomyelitis of left foot ([facility]) Unspecified osteomyelitis, ankle and foot documented in this encounter [facility] Narrative History of Present Illness not supported for this document type No History of Present Illness [facility] Work Phone: Hospital Discharge instructions* Attachments The following attachments cannot be sent through Care Everywhere. * Pelvic Pain (Peruvian) documented in this encounterT[facility]aw[facility] HospitalS[facility] Phone: Hospital Discharge instructions* Attachments The following attachments cannot be sent through Care Everywhere. * Knee Pain or Injury (Peruvian) * Lightheadedness or Faintness (Peruvian) documented in this encounterTuscarawas HospitalS[facility] Phone: Hospital Discharge instructions* Attachments The following attachments cannot be sent through Care Everywhere. * Pneumonia (Peruvian) [facility] Work Phone: Hospital Discharge instructions* Attachments The following attachments cannot be sent through Care Everywhere. * Pain: Coccyx (Peruvian) documented in this encounterSA[facility] CENTERGeneral Dynamics Work Phone: Hospital Discharge instructionsNot on filedocumented in this encounterProMedica Health SystemInstructions Instructions not supported for this document type No Instructions [facility] Work Phone: InstructionsNot on filedocumented in this [...] Outcomes for active Goals No Outcomes [facility] Work Phone: reason for referral (narrative)No Reason for Referral [facility] Work Phone: reason for visit Narrative* Auth/CertSpecialty Diagnoses / ProceduresReferred By ContactReferred To Contact Diagnoses Cellulitis Osmar Rodriguez MD [address] [place] [address] Phone: tel: fax: [facility] [address] [place] [address] Referral IDStatusReasonStart DateExpiration DateVisits RequestedVisits [id number] [facility]Review [facility] systems Narrative - Reported Review of Systems not supported for this document type No Review of Systems [facility] Work Phone: History of Past Illness Name Date of Onset Comments Hypothyroidism DizzinessCAD (coronary artery disease)ASHD (arteriosclerotic heart disease) Ventral herniaDiabetes mellitus type 2 in obese04/14/2016HTN (hypertension)Type 2 diabetes pfxhekcp87/30/2018Lumbar spinal stenosisNov 12 2014 9:53AMDiabetes mellitus type [...] type 2 in obese04/14/2015HTN (hypertension)Type 2 diabetes dfupbanq80/30/2018Lumbar spinal stenosisNov 2014 9:53AMDiabetes mellitus type 2 [...] type 2 in obese04/14/2015HTN (hypertension)Type 2 diabetes kirwplzm54/30/2018Lumbar spinal stenosisNov 2014 9:53AMDiabetes mellitus type 2 [...] type 2 in obese04/14/2015HTN (hypertension)Type 2 diabetes npgmlgfo75/30/2018Lumbar spinal stenosisNov 12 2014 9:53AMDiabetes mellitus type [...] type 2 in obese04/14/2015HTN (hypertension)Type 2 diabetes tyvgjgnn40/30/2018Lumbar spinal stenosisNov 2014 9:53AMDiabetes mellitus type 2 [...] PMFull Code03/18/2020 1:51 PM03/19/2020 5:35 PMNameRelationshipHealthcare Agent RelationshipCommunicationBoston [facility] Brother/SisterPrimary Decision Maker* * Serafin OlivarezChildSecondary Decision Maker* * Code StatusDate ActivatedDate InactivatedCommentsFull Code05/13/2021 9:24 AM 05/17/2021 4:01 PMFull Code05/01/2021 7:55 PM2 3:54 PMFull Code03/18/2020 1:51 PM03/19/2020 5:35 PMNameRelationshipHealthcare Agent Relationship CommunicationBaTaunton State HospitalBrother/SisterPrimary Decision Maker* * Serafin OlivarezChildSecondary Decision Maker* * Code StatusDate ActivatedDate InactivatedCommentsFull Code04/21/2019 10:31 PMCode StatusDate ActivatedDate InactivatedCommentsDNR Suspension07/19/2021 2:29 PMName RelationshipHealthcare Agent RelationshipCommunicationBaTaunton State HospitalBrother/Sister Primary Decision Maker* * Serafin OlivarezChildSecondary Decision Maker* * NameRelationshipHealthcare Agent RelationshipCommunicationElderTaunton State Hospital Brother/SisterPrimary Decision Maker* * Serafin OlivarezChildSecondary Decision Maker* * NameRelationshipHealthcare Agent RelationshipCommunicationBaTaunton State Hospital Brother/SisterPrimary Decision Maker* * Serafin OlivarezChildSecondary [...] InactivatedComments05/01/2021 7:55 PM2 3:54 PMDate Activated Date OokfletpfnjGdvrsied81/18/2020 1:51 PM03/19/2020 5:35 PMDate ActivatedDate QheaaapryspUirhfkgq47/18/2020 12:30 PM03/18/2020 1:50 PMNameRelationship Healthcare Agent RelationshipCommunicationBambi () Abbyther/Sister Primary Decision Maker* * Serafin OlivarezChildSecondary Decision Maker* * Advance Directive Response Recorded Date/ Time Advance Directives No January 19, 2024 6:01pm Date ActivatedDate HufjfvujcetNvedvpxi31/11/2024 12:31 AM01/18/2024 3:18 PMDate ActivatedDate HludrnaieacPpkvffoy74/7/2024 4:06 PM10 10:56 PMDate ActivatedDate InactivatedComments11/10/2022 5:40 AM11/19/2022 8:58 PMDate ActivatedDate InactivatedComments10/22/2022 5:48 AM10/23/2022 5:00 PMDate ActivatedDate InactivatedComments09/25/2022 1:11 AM09/26/2022 6:33 PMDate ActivatedDate SbscyivhntwNrniaojt93/11/2024 12:31 AMDate ActivatedDate QmnrfuqxjjcUdwolcfb69/7/2024 4:06 PM10 10:56 PMDate ActivatedDate InactivatedComments11/10/2022 5:40 AM11/19/2022 8:58 PMDate ActivatedDate InactivatedComments10/22/2022 5:48 AM10/23/2022 5:00 PMDate ActivatedDate InactivatedComments09/25/2022 1:11 AM09/26/2022 6:33 PMDate ActivatedDate SdjolugzetqFqyizgsf06/11/2024 12:31 AMDate ActivatedDate InactivatedComments 07/13/2024 5:15 PM07/16/2024 5:48 PMDate ActivatedDate InactivatedComments 01/10/2024 12:31 AM01/18/2024 3:18 PMDate ActivatedDate InactivatedComments 01/06/2024 4:06 PM10 10:56 PMDate ActivatedDate InactivatedComments 11/10/2022 5:40 AM11/19/2022 8:58 PMDate ActivatedDate InactivatedComments 10/22/2022 5:48 AM10/23/2022 5:00 PMTypeDate RecordedPatient Machine Pack Assembler ExplanationACP-Advance Directive12/17/2022 2:10 PMDate ActivatedDate Inactivated Comments08/06/2024 3:00 PMDate ActivatedDate InactivatedComments12/13/2022 1:30 PM 12/14/2022 8:36 PMDate ActivatedDate InactivatedComments05/13/2021 9:24 AM 05/17/2021 4:01 PMDate ActivatedDate InactivatedComments05/01/2021 7:55 PM2 3:54 PMDate ActivatedDate FtjdasgihydQuqzthju69/18/2020 1:51 PM03/19/2020 5:35 PMNameRelationshipHealthcare Agent RelationshipCommunicationBob [facility] Secondary Decision Maker* * Date ActivatedDate InactivatedComments08/12/2024 3:27 PMDate ActivatedDate InactivatedComments08/06/2024 3:00 PM08/10/2024 11:12 PMDate ActivatedDate InactivatedComments12/13/2022 1:30 PM12/14/2022 8:36 PMDate ActivatedDate InactivatedComments05/13/2021 9:24 AM05/17/2021 4:01 PMDate ActivatedDate InactivatedComments05/01/2021 7:55 PM2 3:54 PMNameRelationshipHealthcare Agent RelationshipCommunicationBob [facility] HospitalSecondary Decision Maker* * Date ActivatedDate InactivatedComments08/12/2024 3:27 PM08/17/2024 2:18 PMName RelationshipHealthcare Agent RelationshipCommunicationBob [facility] HospitalSecondary Decision Maker* * TypeDate RecordedPatient RepresentativeExplanationACP-Advance Directive12/17/2022 2:10 PMACP-Advance Directive10/23/2024 9:59 AMLiving WillDate ActivatedDate InactivatedComments10/22/2024 3:38 PM10/26/2024 6:38 PMDate ActivatedDate InactivatedComments08/12/2024 3:27 PM08/17/2024 2:18 PMDate ActivatedDate InactivatedComments08/06/2024 3:00 PM08/10/2024 11:12 PMDate ActivatedDate InactivatedComments12/13/2022 1:30 PM12/14/2022 8:36 PMDate ActivatedDate InactivatedComments05/13/2021 9:24 AM05/17/2021 4:01 PMNameRelationshipHealthcare Agent RelationshipCommunicationBob [facility] Decision Maker* Date ActivatedDate InactivatedComments12/05/2024 5:34 PMDate ActivatedDate InactivatedComments07/13/2024 5:15 PM07/16/2024 5:48 PMDate ActivatedDate AdvenwbhhspNhvhgcvq84/11/2024 12:31 AM01/18/2024 3:18 PMDate ActivatedDate BvzykpdczgzDssiciob95/7/2024 4:06 PM10 10:56 PMDate ActivatedDate InactivatedComments11/10/2022 5:40 AM11/19/2022 8:58 PMDate ActivatedDate YnctakmuvdqLswzpttz40/2/2025 12:14 AMDate ActivatedDate InactivatedComments 12/13/2024 3:44 PM12/17/2024 8:38 PMDate ActivatedDate InactivatedComments12/05/2024 5:34 PM12/11/2024 5:15 PMDate ActivatedDate InactivatedComments07/13/2024 5:15 PM 07/16/2024 5:48 PMDate ActivatedDate AsdaqcmryzaXzkfdlaq96/11/2024 12:31 AM 01/18/2024 3:18 PM Assessments Findings Encounter Date Body mass index Medical Established Patient with Vahid Nagy STUDENT COUNSELLOR 08/27/2018 Obesity due to excess calories Medical E stablished Patient with Vahid Nagy STUDENT COUNSELLOR 08/27/2018 F17.210 - Nicotine dependenc e, cigarettes, uncomplicated Established Patient with Zach Grimaldo [facility] 07/28/2018 F34.1 - Dysthymic disorder Establishe d Patient with Zach Grimaldo [facility] 07/28/2018 F41.1 - Generalized anxiety disorder Established Patient with Zach Grimaldo [facility] 07/28/2018 Assess diabetes mellitus Medical Establi shed Patient with Vahid Nagy [facility] 07/28/2018 Assess generalized anxiety disorder [facility] Established Patient with Vahid Nagy [facility] 07/28/2018 Assess lumbago Medical Established Patient with Vahid Nagy [facility] 07/28/2018 Assess perennial allergic rh initis with seasonal variation Medical Established Patient with Vahid Nagy [facility] 07/28/2018 Body mass index Medical Established Patient with Vahid Nagy [facility] 07/28/2018 Obesity due to excess calories Medical E stablished Patient with Vahid Nagy [facility] 07/28/2018 Assess tobacco abuse Medical Established Patient with Vahid Nagy [facility] 06/27/2018 Assessment of chronic lower back pain Me dical Established Patient with Vahid Nagy [facility] 06/27/2018 Obesity due to excess calories Medical E stablished Patient with Vahidchristiano Nagy [facility] 06/27/2018 Obesity due to excess calories Medical E stablished Patient with Vahid Nagy [facility] 05/30/2018 Findings Encounter Date Assess dermatitis Medical Established Patient with Vahid Nagy [facility] 09/30/2018 Assess urinary tract infection Medical E stablished Patient with Vahid Nagy [facility] 09/30/2018 Body mass index Medical Established Patient with Vahid Nagy [facility] 08/27/2018 Obesity due to excess calories Medical E stablished Patient with Vahid Nagy [facility] 08/27/2018 F17.210 - Nicotine dependenc e, cigarettes, uncomplicated Established Patient with Zach Grimaldo [facility] 07/28/2018 F34.1 - Dysthymic disorder Establishe d Patient with Zach Grimaldo [facility] 07/28/2018 F41.1 - Generalized anxiety disorder Established Patient with Zach Grimaldo [facility] 07/28/2018 Assess diabetes mellitus Medical Establi shed Patient with Vahid Nagy [facility] 07/28/2018 Assess generalized anxiety disorder [facility] Established Patient with Vahid Nagy [facility] 07/28/2018 Assess lumbago Medical Established Patient with Vahid Nagy [facility] 07/28/2018 Assess perennial allergic rh initis with seasonal variation Medical Established Patient with Vahid Nagy [facility] 07/28/2018 Body mass index Medical Established Patient with Vahid Nagy [facility] 07/28/2018 Obesity due to excess calories Medical E stablished Patient with Vahid Nagy [facility] 07/28/2018 Assess tobacco abuse Medical Established Patient with Vahid Nagy [facility] 06/27/2018 Assessment of chronic lower back pain Me dical Established Patient with Vahid Nagy [facility] 06/27/2018 Obesity due to excess calories Medical E stablished Patient with Vahid Nagy [facility] 06/27/2018 Obesity due to excess calories Medical E stablished Patient with Vahid Nagy [facility] 05/30/2018 Findings Encounter Date Body mass index [Body mass i ndex (BMI) 35.0-35.9 adult] Medical [facility] Diabetes Risk Test Score was three score 01/12/2019 Medical Established Patient with Elena [facility] 01/12/2019 Fagerstrom Score was 0 01/12/2019 Medica l Established [facility]2019 Limb pain of shoulder region Medical Est ablished [facility]/12/2019 Obesity due to excess calories Medical E stablished [facility]/12/2019 PHQ-9: total score was 18 01/12/2019 Med ical Established [facility]/12/2019 Assess bronchitis Medical Established Patient with Vahid Nagy [facility] 12/11/2018 Irreducible ventral hernia Medical Estab lished Patient with Vahid Nagy [facility] 12/11/2018 Obesity due to excess calories Medical E stablished Patient with Vahid Nagy [facility] 12/11/2018 Z68.32 - Body mass index (BM I) 32.0-32.9 adult Medical Established Patient with Vahid Nagy [facility] 12/11/2018 Body mass index Medical Established Patient with Vahid Nagy [facility] 10/30/2018 Assess dermatitis Medical Established Patient with Vahid Nagy [facility] 09/30/2018 Assess urinary tract infection Medical E stablished Patient with Vahid Nagy [facility] 09/30/2018 Body mass index Medical Established Patient with Vahid Nagy [facility] 08/27/2018 Obesity due to excess calories Medical E stablished Patient with Vahid Nagy [facility] 08/27/2018 F17.210 - Nicotine dependenc e, cigarettes, uncomplicated BH Established Patient with Zach Grimaldo [facility] 07/28/2018 F34.1 - Dysthymic disorder Establishe d Patient with Zach Grimaldo [facility] 07/28/2018 F41.1 - Generalized anxiety disorder BH Established Patient with Zach Grimaldo [facility] 07/28/2018 Assess diabetes mellitus Medical Establi shed Patient with Vahid Nagy [facility] 07/28/2018 Assess generalized anxiety disorder [facility] иван Established Patient with Vahid Nagy [facility] 07/28/2018 Assess lumbago Medical Established Patient with Vahid Nagy [facility] 07/28/2018 Assess perennial allergic rh initis with seasonal variation Medical Established Patient with Vahid Nagy [facility] 07/28/2018 Body mass index Medical Established Patient with Vahid Nagy [facility] 07/28/2018 Obesity due to excess calories Medical E stablished Patient with Vahid Nagy [facility] 07/28/2018 Assess tobacco abuse Medical Established Patient with Vahid Nagy [facility] 06/27/2018 Assessment of chronic lower back pain Me dical Established Patient with Vahid Nagy [facility] 06/27/2018 Obesity due to excess calories Medical E stablished Patient with Vahid Nagy [facility] 06/27/2018 Obesity due to excess calories Medical E stablished Patient with Vahid Nagy [facility] 05/30/2018 Diagnosis Near syncope- Primary Syncope and collapse Fall from standing, initial encounter Hyponatremia Hyposmolality and/or hyponatremia Diagnosis Pain of left upper extremity Findings Encounter Date Body mass index Medical Established Patient with Vahid Nagy [facility] 01/22/2019 Obesity due to excess calories Medical E stablished Patient with Vahid Nagy [facility] 01/22/2019 Body mass index [Body mass i ndex (BMI) 35.0-35.9 adult] Medical Established Patient with Elena Diazer [facility] 01/12/2019 Diabetes Risk Test Score was three score 01/12/2019 Medical Established Patient with Elena Diazer [facility] 01/12/2019 Fagerstrom Score was 0 01/12/2019 Medica l Established Patient with Elena Malik [facility] 01/12/2019 Limb pain of shoulder region Medical Est ablished Patient with Elenaradha Malik [facility] 01/12/2019 Obesity due to excess calories Medical E stablished Patient with Elena Diazer [facility] 01/12/2019 PHQ-9: total score was 18 01/12/2019 Med ical Established Patient with Elena Malik [facility] 01/12/2019 Assess bronchitis Medical Established Patient with Vahid Nagy [facility] 12/11/2018 Irreducible ventral hernia Medical Estab lished Patient with Vahid Nagy [facility] 12/11/2018 Obesity due to excess calories Medical E stablished Patient with Vahid Nagy [facility] 12/11/2018 Z68.32 - Body mass index (BM I) 32.0-32.9 adult Medical Established Patient with Vahid Nagy [facility] 12/11/2018 Body mass index Medical Established Patient with Vahid Nagy [facility] 10/30/2018 Assess dermatitis Medical Established Patient with Vahid Nagy [facility] 09/30/2018 Assess urinary tract infection Medical E stablished Patient with Vahidchristiano Nagy [facility] 09/30/2018 Body mass index Medical Established Patient with Vahid Nagy [facility] 08/27/2018 Obesity due to excess calories Medical E stablished Patient with Vahid Nagy [facility] 08/27/2018 F17.210 - Nicotine dependenc e, cigarettes, uncomplicated Established Patient with Zach Grimaldo [facility] 07/28/2018 F34.1 - Dysthymic disorder Establishe d Patient with Zach Grimaldo [facility] 07/28/2018 F41.1 - Generalized anxiety disorder Established Patient with Zach Grimaldo [facility] 07/28/2018 Assess diabetes mellitus Medical Establi shed Patient with Vahid Breweren [facility] 07/28/2018 Assess generalized anxiety disorder [facility] Established Patient with Vahid Angelita [facility] 07/28/2018 Assess lumbago Medical Established Patient with Vahid Nagy [facility] 07/28/2018 Assess perennial allergic rh initis with seasonal variation Medical Established Patient with Vahid Nagy [facility] 07/28/2018 Body mass index Medical Established Patient with Vahid Angelita [facility] 07/28/2018 Obesity due to excess calories Medical E stablished Patient with Vahid Nagy [facility] 07/28/2018 Assess tobacco abuse Medical Established Patient with Vahid Nagy [facility] 06/27/2018 Assessment of chronic lower back pain Me dical Established Patient with Vahid Angelita [facility] 06/27/2018 Obesity due to excess calories Medical E stablished Patient with Vahid Angelita [facility] 06/27/2018 Obesity due to excess calories Medical E stablished Patient with Vahid Angelita [facility] 05/30/2018 Findings Encounter Date Generalized anxiety disorder Establis hed Patient with Zach Grimaldo [facility] 02/19/2019 Persistent depressive disord er (dysthymia) Established Patient with Zach Grimaldo [facility] 02/19/2019 Body mass index Medical Established Patient with Vahid Nagy [facility] 02/19/2019 Generalized anxiety disorder Medical Est ablished Patient with Vahid Nagy [facility] 02/19/2019 Lumbago Medical Established Patient with Vahid Nagy [facility] 02/19/2019 Lumbar radiculopathy Medical Established Patient with Vahid Nagy [facility] 02/19/2019 Obesity due to excess calories Medical E stablished Patient with Vahid Nagy [facility] 02/19/2019 Body mass index Medical Established Patient with Vahid Nagy [facility] 01/22/2019 Obesity due to excess calories Medical E stablished Patient with Vahid Nagy [facility] 01/22/2019 Body mass index [Body mass i ndex (BMI) 35.0-35.9 adult] Medical [facility] Diabetes Risk Test Score was three score 01/12/2019 Medical Established [facility]12/2019 Fagerstrom Score was 0 01/12/2019 Medica l [facility]ished [facility]/12/2019 Limb pain of shoulder region Medical Est ablished [facility]/12/2019 Obesity due to excess calories Medical E stablished [facility]12/2019 PHQ-9: total score was 18 01/12/2019 Med ical Established [facility]12/2019 Assess bronchitis Medical Established Patient with Vahid Nagy [facility] 12/11/2018 Irreducible ventral hernia Medical Estab lished Patient with Vahid Nagy [facility] 12/11/2018 Obesity due to excess calories Medical E stablished Patient with Vahid Nagy [facility] 12/11/2018 Z68.32 - Body mass index (BM I) 32.0-32.9 adult Medical Established Patient with Vahid Nagy [facility] 12/11/2018 Body mass index Medical Established Patient with Vahid Nagy [facility] 10/30/2018 Assess dermatitis Medical Established Patient with Vahid Nagy [facility] 09/30/2018 Assess urinary tract infection Medical E stablished Patient with Vahid Nagy [facility] 09/30/2018 Body mass index Medical Established Patient with Vahid Nagy [facility] 08/27/2018 Obesity due to excess calories Medical E stablished Patient with Vahid Nagy [facility] 08/27/2018 F17.210 - Nicotine dependenc e, cigarettes, uncomplicated BH Established Patient with Zach Grimaldo [facility] 07/28/2018 F34.1 - Dysthymic disorder Establishe d Patient with Zach Grimaldo [facility] 07/28/2018 F41.1 - Generalized anxiety disorder Established Patient with Zach Grimaldo [facility] 07/28/2018 Assess diabetes mellitus Medical Establi shed Patient with Vahid Breweren [facility] 07/28/2018 Assess generalized anxiety disorder [facility] иван Established Patient with Vahid Breweren [facility] 07/28/2018 Assess lumbago Medical Established Patient with Vahid Breweren [facility] 07/28/2018 Assess perennial allergic rh initis with seasonal variation Medical Established Patient with Vahid Nagy [facility] 07/28/2018 Body mass index Medical Established Patient with Vahid Nagy [facility] 07/28/2018 Obesity due to excess calories Medical E stablished Patient with Vahid Nagy [facility] 07/28/2018 Assess tobacco abuse Medical Established Patient with Vahid Nagy [facility] 06/27/2018 Assessment of chronic lower back pain Me dical Established Patient with Vahid Breweren [facility] 06/27/2018 Obesity due to excess calories Medical E stablished Patient with Vahid Nagy [facility] 06/27/2018 Obesity due to excess calories Medical E stablished Patient with Vahid Nagy [facility] 05/30/2018 Diagnosis Abdominal pain, unspecified abdominal location- Primary Anxiety state Anxiety state, unspecified Findings Encounter Date Acute atopic conjunctivitis [Acute atopic conjunctivitis left eye] Medical Established Patient with Elena Diazer [facility] 03/03/2019 Acute sinusitis Medical Established Patient with Elena Diazer [facility] 03/03/2019 Body mass index [Body mass i ndex (BMI) 35.0-35.9 adult] Medical Established Patient with Elena King [facility] 03/03/2019 Generalized anxiety disorder BH Establis hed Patient with Zach Grimaldo [facility] 02/19/2019 Nicotine dependence Established Patie nt with Zach Grimaldo [facility] 02/19/2019 Persistent depressive disord er (dysthymia) Established Patient with Zach Grimaldo [facility] 02/19/2019 Body mass index Medical Established Patient with Vahid Angelita [facility] 02/19/2019 Generalized anxiety disorder Medical Est ablished Patient with Vahid Angelita [facility] 02/19/2019 Lumbago Medical Established Patient with Vahid Angelita [facility] 02/19/2019 Lumbar radiculopathy Medical Established Patient with Vahid Angelita [facility] 02/19/2019 Obesity due to excess calories Medical E stablished Patient with Vahid Angelita [facility] 02/19/2019 Body mass index Medical Established Patient with Vahid Nagy [facility] 01/22/2019 Obesity due to excess calories Medical E stablished Patient with Vahid Nagy [facility] 01/22/2019 Body mass index [Body mass i ndex (BMI) 35.0-35.9 adult] Medical Established Patient with Elena Malik [facility] 01/12/2019 Diabetes Risk Test Score was three score 01/12/2019 Medical Established Patient with Elena Malik [facility] 01/12/2019 Fagerstrom Score was 0 01/12/2019 Medica l Established Patient with Elena Malik [facility] 01/12/2019 Limb pain of shoulder region Medical Est ablished Patient with Elena Malik [facility] 01/12/2019 Obesity due to excess calories Medical E stablished Patient with Elena Malik [facility] 01/12/2019 PHQ-9: total score was 18 01/12/2019 Med ical Established Patient with Elena Malik [facility] 01/12/2019 Assess bronchitis Medical Established Patient with Vahid Nagy [facility] 12/11/2018 Irreducible ventral hernia Medical Estab lished Patient with Vahid Nagy [facility] 12/11/2018 Obesity due to excess calories Medical E stablished Patient with Vahid Nagy [facility] 12/11/2018 Z68.32 - Body mass index (BM I) 32.0-32.9 adult Medical Established Patient with Vahid Nagy [facility] 12/11/2018 Body mass index Medical Established Patient with Vahid Nagy [facility] 10/30/2018 Assess dermatitis Medical Established Patient with Vahid Nagy [facility] 09/30/2018 Assess urinary tract infection Medical E stablished Patient with Vahid Nagy [facility] 09/30/2018 Body mass index Medical Established Patient with Vahid Nagy [facility] 08/27/2018 Obesity due to excess calories Medical E stablished Patient with Vahid Nagy [facility] 08/27/2018 F17.210 - Nicotine dependenc e, cigarettes, uncomplicated Established Patient with Zach Grimaldo [facility] 07/28/2018 F34.1 - Dysthymic disorder Establishe d Patient with Zach Grimaldo [facility] 07/28/2018 F41.1 - Generalized anxiety disorder Established Patient with Zach Grimaldo [facility] 07/28/2018 Assess diabetes mellitus Medical Establi shed Patient with Vahid Nagy [facility] 07/28/2018 Assess generalized anxiety disorder [facility] Established Patient with Vahid Nagy [facility] 07/28/2018 Assess lumbago Medical Established Patient with Vahid Nagy [facility] 07/28/2018 Assess perennial allergic rh initis with seasonal variation Medical Established Patient with Vahid Nagy [facility] 07/28/2018 Body mass index Medical Established Patient with Vahid Nagy [facility] 07/28/2018 Obesity due to excess calories Medical E stablished Patient with Vahid Nagy [facility] 07/28/2018 Assess tobacco abuse Medical Established Patient with Vahid Nagy [facility] 06/27/2018 Assessment of chronic lower back pain Me dical Established Patient with Vahid Nagy [facility] 06/27/2018 Obesity due to excess calories Medical E stablished Patient with Vahid Nagy [facility] 06/27/2018 Obesity due to excess calories Medical E stablished Patient with Vahid Nagy [facility] 05/30/2018 Findings Encounter Date Obesity due to excess calories Medical E stablished Patient with Vahid Nagy [facility] 03/20/2019 Z68.36 - Body mass index (BM I) 36.0-36.9 adult Medical Established Patient with Vahid Nagy [facility] 03/20/2019 Acute atopic conjunctivitis [Acute atopic conjunctivitis left eye] Medical Established Patient with Elena Diazer [facility] 03/03/2019 Acute sinusitis Medical Established Patient with Elena Diazer [facility] 03/03/2019 Body mass index [Body mass i ndex (BMI) 35.0-35.9 adult] Medical Established Patient with Elena Diazer [facility] 03/03/2019 Generalized anxiety disorder Establis hed Patient with Zach Grimaldo [facility] 02/19/2019 Nicotine dependence Established Patie nt with Zach Grimaldo [facility] 02/19/2019 Persistent depressive disord er (dysthymia) Established Patient with Zach Grimaldo [facility] 02/19/2019 Body mass index Medical Established Patient with Vahid Angelita [facility] 02/19/2019 Generalized anxiety disorder Medical Est ablished Patient with Vahid Angelita [facility] 02/19/2019 Lumbago Medical Established Patient with Vahid Angelita [facility] 02/19/2019 Lumbar radiculopathy Medical Established Patient with Vahid Angelita [facility] 02/19/2019 Obesity due to excess calories Medical E stablished Patient with Vahid Angelita [facility] 02/19/2019 Body mass index Medical Established Patient with Vahid Angelita [facility] 01/22/2019 Obesity due to excess calories Medical E stablished Patient with Vahid Angelita [facility] 01/22/2019 Body mass index [Body mass i ndex (BMI) 35.0-35.9 adult] Medical Established Patient with Elena Malik [facility] 01/12/2019 Diabetes Risk Test Score was three score 01/12/2019 Medical Established Patient with Elena Malik [facility] 01/12/2019 Fagerstrom Score was 0 01/12/2019 Medica l [facility]ished [facility] Limb pain of shoulder region Medical Est ablished [facility]/12[facility]2019 Obesity due to excess calories Medical E stablished [facility]/12/2019 PHQ-9: total score was 18 01/12/2019 Med ical Established [facility]/12/2019 Assess bronchitis Medical Established Patient with Vahid Nagy [facility] 12/11/2018 Irreducible ventral hernia Medical Estab lished Patient with Vahid [facility] 12/11/2018 Obesity due to excess calories [facility] Z68.32 - Body mass index (BM I) 32.0-32.9 adult Medical Establ[facility] Body mass index Medical Established Patient with Vahid Nagy [facility] 10/30/2018 Assess dermatitis Medical Established Patient with Vahid Nagy [facility] 09/30/2018 Assess urinary tract infection [facility] Body mass index [facility] Obesity due to excess calories Medical E stablished Patient with Vahid Nagy [facility] 08/27/2018 F17.210 - Nicotine dependenc e, cigarettes, uncomplicated BH Established Patient with Zach Grimaldo [facility] 07/28/2018 F34.1 - Dysthymic disorder Establishe d Patient with Zach Grimaldo [facility] 07/28/2018 F41.1 - Generalized anxiety disorder Established Patient with Zach Grimaldo [facility] 07/28/2018 Assess diabetes mellitus Medical Establi shed [facility] Assess generalized anxiety disorder [facility] иван [facility]/2018 Assess lumbago Medical Established Patient with Vahid Nagy [facility] 07/28/2018 Assess perennial allergic rh initis with seasonal variation Medical Established Patient with Vahid Nagy [facility] 07/28/2018 Body mass index Medical Established Patient with Vahid Nagy [facility] 07/28/2018 Obesity due to excess calories Medical E stablished Patient with Vahid Nagy [facility] 07/28/2018 Assess tobacco abuse Medical Established Patient with Vahid Nagy [facility] 06/27/2018 Assessment of chronic lower back pain Me dical Established Patient with Vahid Nagy [facility] 06/27/2018 Obesity due to excess calories Medical E stablished Patient with Vahid Nagy [facility] 06/27/2018 Obesity due to excess calories Medical E stablished Patient with Vahid Nagy [facility] 05/30/2018 Findings Encounter Date 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 Established Patient with Zach Grimaldo [facility] 04/14/2019 F41.1 - Generalized anxiety disorder Established Patient with Zach Grimaldo [facility] 04/14/2019 Obesity due to excess calories Medical E stablished Patient with Vahid Nagy [facility] 04/14/2019 Z68.36 - Body mass index (BM I) 36.0-36.9 adult Medical Established Patient with Vahid Nagy [facility] 04/14/2019 Obesity due to excess calories Medical E stablished Patient with Vahid Nagy [facility] 03/20/2019 Z68.36 - Body mass index (BM I) 36.0-36.9 adult Medical Established Patient with Vahid Nagy [facility] 03/20/2019 Acute atopic conjunctivitis [Acute atopic conjunctivitis left eye] Medical Established Patient with Elena Malik [facility] 03/03/2019 Acute sinusitis Medical Established Patient with Elena Diazer [facility] 03/03/2019 Body mass index [Body mass i ndex (BMI) 35.0-35.9 adult] Medical Established Patient with Elena King [facility] 03/03/2019 Generalized anxiety disorder Establis hed Patient with Zach Grimaldo [facility] 02/19/2019 Nicotine dependence Established Patie nt with Zach Grimaldo [facility] 02/19/2019 Persistent depressive disord er (dysthymia) Established Patient with Zach Grimaldo [facility] 02/19/2019 Body mass index Medical Established Patient with Vahid Breweren [facility] 02/19/2019 Generalized anxiety disorder Medical Est ablished Patient with Vahid Angelita [facility] 02/19/2019 Lumbago Medical Established Patient with Vahid rBeweren [facility] 02/19/2019 Lumbar radiculopathy Medical Established Patient with Vahid Nagy [facility] 02/19/2019 Obesity due to excess calories Medical E stablished Patient with Vahid Nagy [facility] 02/19/2019 Body mass index Medical Established Patient with Vahid Nagy [facility] 01/22/2019 Obesity due to excess calories Medical E stablished Patient with Vahid Nagy [facility] 01/22/2019 Body mass index [Body mass i ndex (BMI) 35.0-35.9 adult] Medical Established Patient with Elena Malik [facility] 01/12/2019 Diabetes Risk Test Score was three score 01/12/2019 Medical Established Patient with Elena Malik [facility] 01/12/2019 Fagerstrom Score was 0 01/12/2019 Medica l Established Patient with Elena Malik [facility] 01/12/2019 Limb pain of shoulder region Medical Est ablished Patient with Elena Malik [facility] 01/12/2019 Obesity due to excess calories Medical E stablished Patient with Elena Malik [facility] 01/12/2019 PHQ-9: total score was 18 01/12/2019 Med ical [facility]ished [facility] Assess bronchitis Medical Established Patient with Vahid Nagy [facility] 12/11/2018 Irreducible ventral hernia Medical Estab lished Patient with Vahid Nagy [facility] 12/11/2018 Obesity due to excess calories Medical E stablished Patient with Vahid Nagy [facility] 12/11/2018 Z68.32 - Body mass index (BM I) 32.0-32.9 adult Medical Established Patient with Vahid Nagy [facility] 12/11/2018 Body mass index Medical Established Patient with Vahid Nagy [facility] 10/30/2018 Assess dermatitis Medical Established Patient with Vahid Nagy [facility] 09/30/2018 Assess urinary tract infection Medical E stablished Patient with Vahid Nagy [facility] 09/30/2018 Body mass index Medical Established Patient with Vahid Nagy [facility] 08/27/2018 Obesity due to excess calories Medical E stablished Patient with Vahid Nagy [facility] 08/27/2018 F17.210 - Nicotine dependenc e, cigarettes, uncomplicated BH Established Patient with Zach Grimaldo [facility] 07/28/2018 F34.1 - Dysthymic disorder Establishe d Patient with Zach Grimaldo [facility] 07/28/2018 F41.1 - Generalized anxiety disorder Established Patient with Zach Grimaldo [facility] 07/28/2018 Assess diabetes mellitus Medical Establi shed Patient with Vahid Nagy [facility] 07/28/2018 Assess generalized anxiety disorder [facility] Established Patient with Vahid Nagy [facility] 07/28/2018 Assess lumbago Medical Established Patient with Vahid Nagy [facility] 07/28/2018 Assess perennial allergic rh initis with seasonal variation Medical Established Patient with Vahid Nagy [facility] 07/28/2018 Body mass index Medical Established Patient with Vahid Nagy [facility] 07/28/2018 Obesity due to excess calories Medical E stablished Patient with Vahid Nagy [facility] 07/28/2018 Assess tobacco abuse Medical Established Patient with Vahid Nagy [facility] 06/27/2018 Assessment of chronic lower back pain Me dical Established Patient with Vahid Ngay [facility] 06/27/2018 Obesity due to excess calories Medical E stablished Patient with Vahid Nagy [facility] 06/27/2018 Obesity due to excess calories Medical E stablished Patient with Vahid Nagy [facility] 05/30/2018 Findings Encounter Date Z68.37 - Body mass index (BM I) 37.0-37.9 adult Medical Established Patient with Vahid Nagy [facility] 05/01/2019 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 Established Patient with Zach Grimaldo [facility] 04/14/2019 F41.1 - Generalized anxiety disorder Established Patient with Zach Grimaldo [facility] 04/14/2019 Obesity due to excess calories Medical E stablished Patient with Vahid Nagy [facility] 04/14/2019 Z68.36 - Body mass index (BM I) 36.0-36.9 adult Medical Established Patient with Vahid Nagy [facility] 04/14/2019 Obesity due to excess calories Medical E stablished Patient with Vahid Nagy [facility] 03/20/2019 Z68.36 - Body mass index (BM I) 36.0-36.9 adult Medical Established Patient with Vahid Nagy [facility] 03/20/2019 Acute atopic conjunctivitis [Acute atopic conjunctivitis left eye] Medical Established Patient with Elena King [facility] 03/03/2019 Acute sinusitis Medical Established Patient with Elena King [facility] 03/03/2019 Body mass index [Body mass i ndex (BMI) 35.0-35.9 adult] Medical Established Patient with Elena King [facility] 03/03/2019 Generalized anxiety disorder Establis hed Patient with Zach Grimaldo [facility] 02/19/2019 Nicotine dependence Established Patie nt with Zach Grimaldo [facility] 02/19/2019 Persistent depressive disord er (dysthymia) Established Patient with Zach Grimaldo [facility] 02/19/2019 Body mass index Medical Established Patient with Vahid Nagy [facility] 02/19/2019 Generalized anxiety disorder Medical Est ablished Patient with Vahid Nagy [facility] 02/19/2019 Lumbago Medical Established Patient with Vahid Nagy [facility] 02/19/2019 Lumbar radiculopathy Medical Established Patient with Vahid Nagy [facility] 02/19/2019 Obesity due to excess calories Medical E stablished Patient with Vahid Nagy [facility] 02/19/2019 Body mass index Medical Established Patient with Vahid Nagy [facility] 01/22/2019 Obesity due to excess calories Medical E stablished Patient with Vahid Nagy [facility] 01/22/2019 Body mass index [Body mass i ndex (BMI) 35.0-35.9 adult] Medical Established Patient with Elena Diazer [facility] 01/12/2019 Diabetes Risk Test Score was three score 01/12/2019 Medical Established Patient with Elena Diazer [facility] 01/12/2019 Fagerstrom Score was 0 01/12/2019 Medica l Established Patient with Elena Diazer [facility] 01/12/2019 Limb pain of shoulder region Medical Est ablished Patient with Elean Malik [facility] 01/12/2019 Obesity due to excess calories Medical E stablished Patient with Elena Diazer [facility] 01/12/2019 PHQ-9: total score was 18 01/12/2019 Med ical Established Patient with Elena Malik [facility] 01/12/2019 Assess bronchitis Medical Established Patient with Vahid Nagy [facility] 12/11/2018 Irreducible ventral hernia Medical Estab lished Patient with Vahid Breweren [facility] 12/11/2018 Obesity due to excess calories Medical E stablished Patient with Vahid Nagy [facility] 12/11/2018 Z68.32 - Body mass index (BM I) 32.0-32.9 adult Medical Established Patient with Vahid Angelita [facility] 12/11/2018 Body mass index Medical Established Patient with Vahid Angelita [facility] 10/30/2018 Assess dermatitis Medical Established Patient with Vahid Angelita [facility] 09/30/2018 Assess urinary tract infection Medical E stablished Patient with Vahid Angelita [facility] 09/30/2018 Body mass index Medical Established Patient with Vahid Angelita [facility] 08/27/2018 Obesity due to excess calories Medical E stablished Patient with Vahid Angelita [facility] 08/27/2018 F17.210 - Nicotine dependenc e, cigarettes, uncomplicated Established Patient with Zach Grimaldo [facility] 07/28/2018 F34.1 - Dysthymic disorder Establishe d Patient with Zach Grimaldo [facility] 07/28/2018 F41.1 - Generalized anxiety disorder Established Patient with Zach Grimaldo [facility] 07/28/2018 Assess diabetes mellitus Medical Establi shed Patient with Vahid Nagy [facility] 07/28/2018 Assess generalized anxiety disorder [facility] иван Established Patient with Vahid Nagy [facility] 07/28/2018 Assess lumbago Medical Established Patient with Vahid Nagy [facility] 07/28/2018 Assess perennial allergic rh initis with seasonal variation Medical Established Patient with Vahid Nagy [facility] 07/28/2018 Body mass index Medical Established Patient with Vahid Nagy [facility] 07/28/2018 Obesity due to excess calories Medical E stablished Patient with Vahid Nagy [facility] 07/28/2018 Assess tobacco abuse Medical Established Patient with Vahid Nagy [facility] 06/27/2018 Assessment of chronic lower back pain Me dical Established Patient with Vahid Nagy [facility] 06/27/2018 Obesity due to excess calories Medical E stablished Patient with Vahid Nagy [facility] 06/27/2018 Obesity due to excess calories Medical E stablished Patient with Vahid Nagy [facility] 05/30/2018 Diagnosis Contusion of left hand, initial encounter- Primary Diagnosis Acute respiratory failure with hypoxia and hypercapnia (HCC) Viral pneumonia Viral pneumonia, unspecified Acute pulmonary edema (HCC) Acute edema of lung, unspecified Diagnosis Benign paroxysmal positional vertigo, unspecified laterality Findings Encounter Date Depressive disorder Telebehavioral alth with Leah Short [facility] 08/26/2019 Generalized anxiety disorder [facility] with Leah Short [facility] 08/26/2019 Z68.37 - Body mass index (BM I) 37.0-37.9 adult Medical Established Patient with Vahid Nagy [facility] 05/01/2019 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 Established Patient with Zach Grimaldo [facility] 04/14/2019 F41.1 - Generalized anxiety disorder Established Patient with Zach Grimaldo [facility] 04/14/2019 Obesity due to excess calories Medical E stablished Patient with Vahid Nagy [facility] 04/14/2019 Z68.36 - Body mass index (BM I) 36.0-36.9 adult Medical Established Patient with Vahid Nagy [facility] 04/14/2019 Obesity due to excess calories Medical E stablished Patient with Vahid Nagy [facility] 03/20/2019 Z68.36 - Body mass index (BM I) 36.0-36.9 adult Medical Established Patient with Vahid Nagy [facility] 03/20/2019 Acute atopic conjunctivitis [Acute atopic conjunctivitis left eye] Medical Established Patient with Elena Diazer [facility] 03/03/2019 Acute sinusitis Medical Established Patient with Elena King [facility] 03/03/2019 Body mass index [Body mass i ndex (BMI) 35.0-35.9 adult] Medical Established Patient with Elena King [facility] 03/03/2019 Generalized anxiety disorder BH Establis hed Patient with Zach Grimaldo [facility] 02/19/2019 Nicotine dependence BH Established Patie nt with Zach Grimaldo [facility] 02/19/2019 Persistent depressive disord er (dysthymia) Established Patient with Zach Grimaldo [facility] 02/19/2019 Body mass index Medical Established Patient with Vahid Nagy [facility] 02/19/2019 Generalized anxiety disorder Medical Est ablished Patient with Vahid Nagy [facility] 02/19/2019 Lumbago Medical Established Patient with Vahid Nagy [facility] 02/19/2019 Lumbar radiculopathy Medical Established Patient with Vahid Nagy [facility] 02/19/2019 Obesity due to excess calories Medical E stablished Patient with Vahid Nagy [facility] 02/19/2019 Body mass index Medical Established Patient with Vahid Nagy [facility] 01/22/2019 Obesity due to excess calories Medical E stablished Patient with Vahidchristiano Nagy [facility] 01/22/2019 Body mass index [Body mass i ndex (BMI) 35.0-35.9 adult] Medical Established Patient with Elena King [facility] 01/12/2019 Diabetes Risk Test Score was three score 01/12/2019 Medical Established Patient with Elena King [facility] 01/12/2019 Fagerstrom Score was 0 01/12/2019 Medica l Established Patient with Elena King [employer] 01/12/2019 Limb pain of shoulder region Medical Est ablished Patient with Elena King [employer] 01/12/2019 Obesity due to excess calories Medical E stablished Patient with Elena King [employer] 01/12/2019 PHQ-9: total score was 18 01/12/2019 Med ical Established Patient with Elena King [facility] 01/12/2019 Assess bronchitis Medical Established Patient with Vahid Nagy [facility] 12/11/2018 Irreducible ventral hernia Medical Estab lished Patient with Vahid Angelita [facility] 12/11/2018 Obesity due to excess calories Medical E stablished Patient with Vahid Nagy [facility] 12/11/2018 Z68.32 - Body mass index (BM I) 32.0-32.9 adult Medical Established Patient with Vahid Nagy [facility] 12/11/2018 Body mass index Medical Established Patient with Vahid Angelita [facility] 10/30/2018 Assess dermatitis Medical Established Patient with Vahid Nagy [facility] 09/30/2018 Assess urinary tract infection Medical E stablished Patient with Vahid Angelita [facility] 09/30/2018 Body mass index Medical Established Patient with Vahid Angelita [facility] 08/27/2018 Obesity due to excess calories Medical E stablished Patient with Vahidchristiano Nagy [facility] 08/27/2018 F17.210 - Nicotine dependenc e, cigarettes, uncomplicated Established Patient with Zachernestina Grimaldo [facility] 07/28/2018 F34.1 - Dysthymic disorder Establishe d Patient with Zachernestina Grimaldo [facility] 07/28/2018 F41.1 - Generalized anxiety disorder Established Patient with Zach Grimaldo [facility] 07/28/2018 Assess diabetes mellitus Medical Establi shed Patient with Vahid Angelita [facility] 07/28/2018 Assess generalized anxiety disorder [facility] Established Patient with Vahid Angelita [facility] 07/28/2018 Assess lumbago Medical Established Patient with Vahid Angelita [facility] 07/28/2018 Assess perennial allergic rh initis with seasonal variation Medical Established Patient with Vahid Angelita [facility] 07/28/2018 Body mass index Medical Established Patient with Vahid Angelita [facility] 07/28/2018 Obesity due to excess calories Medical E stablished Patient with Vahid Angelita [facility] 07/28/2018 Assess tobacco abuse Medical Established Patient with Vahid Angelita [facility] 06/27/2018 Assessment of chronic lower back pain Me dical Established Patient with Vahid Angelita [facility] 06/27/2018 Obesity due to excess calories Medical E stablished Patient with Vahid Angelita [facility] 06/27/2018 Obesity due to excess calories Medical E stablished Patient with Vahid Angelita [facility] 05/30/2018 Diagnosis ASHD (arteriosclerotic heart disease) Coronary atherosclerosis of unspecified type of vessel, [place] vie[place] or graft S/P angioplasty with stent Postsurgical [...] Short [facility] 08/26/2019 [facility]ized [facility] 08/26/2019 Z68.37 - Body mass index (BM I) 37.0-37.9 adult Medical Established Patient with Vahid Angelita [facility] 05/01/2019 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 Established Patient with Zach Grimaldo [facility] 04/14/2019 F41.1 - Generalized anxiety disorder Established Patient with Zach Grimaldo [facility] 04/14/2019 Obesity due to excess calories Medical E stablished Patient with Vahidchristiano Breweren [facility] 04/14/2019 Z68.36 - Body mass index (BM I) 36.0-36.9 adult Medical Established Patient with Vahid Angelita [facility] 04/14/2019 Obesity due to excess calories Medical E stablished Patient with Vahid Angelita [facility] 03/20/2019 Z68.36 - Body mass index (BM I) 36.0-36.9 adult Medical Established Patient with Vahid Nagy [facility] 03/20/2019 Acute atopic conjunctivitis [Acute atopic conjunctivitis left eye] Medical Established Patient with Elena Diazer [facility] 03/03/2019 Acute sinusitis Medical Established Patient with Elena Malik [facility] 03/03/2019 Body mass index [Body mass i ndex (BMI) 35.0-35.9 adult] Medical Established Patient with Elena Malik [facility] 03/03/2019 Generalized anxiety disorder Establis hed Patient with Zach Grimaldo [facility] 02/19/2019 Nicotine dependence Established Patie nt with Zach Grimaldo [facility] 02/19/2019 Persistent depressive disord er (dysthymia) Established Patient with Zach Grimaldo [facility] 02/19/2019 Body mass index Medical Established Patient with Vahid Nagy [facility] 02/19/2019 Generalized anxiety disorder Medical Est ablished Patient with Vahid Nagy [facility] 02/19/2019 Lumbago Medical Established Patient with Vahid Nagy [facility] 02/19/2019 Lumbar radiculopathy Medical Established Patient with Vahid Nagy [facility] 02/19/2019 Obesity due to excess calories Medical E stablished Patient with Vahid Nagy [facility] 02/19/2019 Body mass index Medical Established Patient with Vahid Nagy [facility] 01/22/2019 Obesity due to excess calories Medical E stablished Patient with Vahid Nagy [facility] 01/22/2019 Body mass index [Body mass i ndex (BMI) 35.0-35.9 adult] Medical [facility] Diabetes Risk Test Score was three score 01/12/2019 Medical [facility]2019 Fagerstrom Score was 0 01/12/2019 Medica l [facility]2019 Limb pain of shoulder region Medical Est ablished [facility]2019 Obesity due to excess calories Medical E [facility]ablished [facility] PHQ-9: total score was 18 01/12/2019 Med ical [facility]ished [facility]2019 Assess bronchitis Medical Established Patient with Vahid Nagy [facility] 12/11/2018 Irreducible ventral hernia Medical Estab lished Patient with Vahid Nagy [facility] 12/11/2018 Obesity due to excess calories Medical E stablished Patient with Vahid Nagy [facility] 12/11/2018 Z68.32 - Body mass index (BM I) 32.0-32.9 adult Medical Established Patient with Vahid Nagy [facility] 12/11/2018 Body mass index Medical Established Patient with Vahid Nagy [facility] 10/30/2018 Assess dermatitis Medical Established Patient with Vahid Nagy [facility] 09/30/2018 Assess urinary tract infection Medical E stablished Patient with Vahid Nagy [facility] 09/30/2018 Body mass index Medical Established Patient with Vahid Nagy [facility] 08/27/2018 Obesity due to excess calories Medical E stablished Patient with Vahid Nagy [facility] 08/27/2018 F17.210 - Nicotine dependenc e, cigarettes, uncomplicated BH Established Patient with Zach Grimaldo [facility] 07/28/2018 F34.1 - Dysthymic disorder Establishe d Patient with Zach Grimaldo [facility] 07/28/2018 F41.1 - Generalized anxiety disorder BH Established Patient with Zach Grimaldo [facility] 07/28/2018 Assess diabetes mellitus Medical Establi shed Patient with Vahid Nagy [facility] 07/28/2018 Assess generalized anxiety disorder Medi иван Established Patient with Vahid Nagy [facility] 07/28/2018 Assess lumbago Medical Established Patient with Vahid Nagy [facility] 07/28/2018 Assess perennial allergic rh initis with seasonal variation Medical Established Patient with Vahid Angelita [facility] 07/28/2018 Body mass index Medical Established Patient with Vahid Angelita [facility] 07/28/2018 Obesity due to excess calories Medical E stablished Patient with Vahidchristiano Nagy [facility] 07/28/2018 Assess tobacco abuse Medical Established Patient with Vahid Nagy [facility] 06/27/2018 Assessment of chronic lower back pain Me dical Established Patient with Vahidchristiano Nagy [facility] 06/27/2018 Obesity due to excess calories Medical E stablished Patient with Vahid Angelita [facility] 06/27/2018 Obesity due to excess calories Medical E stablished Patient with Vahid Nagy [facility] 05/30/2018 Diagnosis ASHD (arteriosclerotic heart disease) Coronary atherosclerosis of unspecified type of vessel, lac vie[place] or graft S/P angioplasty with stent Postsurgical percutaneous transluminal coronary angioplasty status Mixed hyperlipidemia Essential hypertension Unspecified essential hypertension Tobacco abuse counseling Counseling on substance use and abuse Bilateral carotid artery disease, unspecified type (HCC) PVD (peripheral vascular disease) (HCC) Peripheral vascular disease, unspecified Abdominal aortic aneurysm (AAA) without rupture ([facility]) SOB (shortness of breath) Shortness of breath Diagnosis Chronic obstructive pulmonary disease with acute exacerbation (HCC) Obstructive chronic bronchitis with exacerbation Pneumonia due to organism Pneumonia due to other specified organism Cough Chronic bilateral low back pain with bilateral sciatica Diagnosis Opioid overdose, accidental or unintentional, initial encounter ([facility]) Pneumonia due to organism Pneumonia due to other specified organism Findings Encounter Date Depression Established Patie nt with Nitza Mark [facility] 10/21/2019 No depressive disorder Established Usha ac with Nitzashanita Mrak [facility] 10/21/2019 F63.89 - Other impulse disor ders : Drug seeking behavior Medical Established Patient with Shawna Holliday [facility] 10/21/2019 Obesity due to excess calories Medical E stablished Patient with Shawna Holliday [employer] 10/21/2019 S76.211D - Strain of adducto r muscle, fascia and tendon of right thigh, subsequent encounter Medical Established Patient with Shawna Holliday [employer] 10/21/2019 Z68.35 - Body mass index (BM I) 35.0-35.9, adult Medical Established Patient with Shawna Holliday [employer] 10/21/2019 Depressive disorder Established Patie nt with Leah Short [facility] 09/24/2019 Generalized anxiety disorder Establis hed Patient with Leah Short [facility] 09/24/2019 M54.5 - Low back pain Medical Establishe d Patient with Shawna Holliday [employer] [facility] 09/24/2019 Obesity due to excess calories Medical E stablished Patient with Shawna Holliday [employer] 09/24/2019 Z68.25 - Body mass index (BM I) 25.0-25.9, adult Medical Established Patient with Shawna Holliday [employer] 09/24/2019 Depressive disorder Telebehavioral He alth with Leah Short [facility] 09/15/2019 Generalized anxiety disorder [facility] Short [facility] 09/15/2019 Depressive disorder Telebehavioral He alth with Leah Short [facility] 08/26/2019 Generalized anxiety disorder [facility] Leah Short [facility] 08/26/2019 Z68.37 - Body mass index (BM I) 37.0-37.9 adult Medical Established Patient with Vahid Nagy [facility] 05/01/2019 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 Established Patient with Zach Grimaldo [facility] 04/14/2019 F41.1 - Generalized anxiety disorder Established Patient with Zach Grimaldo [facility] 04/14/2019 Obesity due to excess calories Medical E stablished Patient with Vahid Angelita [facility] 04/14/2019 Z68.36 - Body mass index (BM I) 36.0-36.9 adult Medical Established Patient with Vahid Angelita [facility] 04/14/2019 Obesity due to excess calories Medical E stablished Patient with Vahid Angelita [facility] 03/20/2019 Z68.36 - Body mass index (BM I) 36.0-36.9 adult Medical Established Patient with Vahid Breweren [facility] 03/20/2019 Acute atopic conjunctivitis [Acute atopic conjunctivitis left eye] Medical Established Patient with Elena King [facility] 03/03/2019 Acute sinusitis Medical Established Patient with Elena King [facility] 03/03/2019 Body mass index [Body mass i ndex (BMI) 35.0-35.9 adult] Medical Established Patient with Elena King [facility] 03/03/2019 Generalized anxiety disorder BH Establis hed Patient with Zach Grimaldo [facility] 02/19/2019 Nicotine dependence Established Patie nt with Zach Grimaldo [facility] 02/19/2019 Persistent depressive disord er (dysthymia) BH Established Patient with Zach Grimaldo [facility] 02/19/2019 Body mass index Medical Established Patient with Vahid Breweren [facility] 02/19/2019 Generalized anxiety disorder Medical Est ablished Patient with Vahid Angelita [facility] 02/19/2019 Lumbago Medical Established Patient with Vahid Angelita [facility] 02/19/2019 Lumbar radiculopathy Medical Established Patient with Vahidchristiano Breweren [facility] 02/19/2019 Obesity due to excess calories Medical E stablished Patient with Vahidchristiano Breweren [facility] 02/19/2019 Body mass index Medical Established Patient with Vahid Breweren [facility] 01/22/2019 Obesity due to excess calories Medical E stablished Patient with Vahidchristiano Breweren [facility] 01/22/2019 Body mass index [Body mass i ndex (BMI) 35.0-35.9 adult] Medical Established Patient with Elena King [facility] 01/12/2019 Diabetes Risk Test Score was three score 01/12/2019 Medical Established Patient with Elena King [facility] 01/12/2019 Fagerstrom Score was 0 01/12/2019 Medica l Established Patient with Elena King [facility] 01/12/2019 Limb pain of shoulder region Medical Est ablished Patient with Elena King [facility] 01/12/2019 Obesity due to excess calories Medical E stablished Patient with Elena King [facility] 01/12/2019 PHQ-9: total score was 18 01/12/2019 Med ical Established Patient with Elena King [facility] 01/12/2019 Assess bronchitis Medical Established Patient with Vahid Angelita [facility] 12/11/2018 Irreducible ventral hernia Medical Estab lished Patient with Vahid Angelita [facility] 12/11/2018 Obesity due to excess calories Medical E stablished Patient with Vahid Angelita [facility] 12/11/2018 Z68.32 - Body mass index (BM I) 32.0-32.9 adult Medical Established Patient with Vahid Nagy [facility] 12/11/2018 Body mass index Medical Established Patient with Vahid Nagy [facility] 10/30/2018 Assess dermatitis Medical Established Patient with Vahid Nagy [facility] 09/30/2018 Assess urinary tract infection Medical E stablished Patient with Vahid Nagy [facility] 09/30/2018 Body mass index Medical Established Patient with Vahid Nagy [facility] 08/27/2018 Obesity due to excess calories Medical E stablished Patient with Vahid Nagy [facility] 08/27/2018 F17.210 - Nicotine dependenc e, cigarettes, uncomplicated BH Established Patient with Zach Grimaldo [facility] 07/28/2018 F34.1 - Dysthymic disorder Establishe d Patient with Zach Grimaldo [facility] 07/28/2018 F41.1 - Generalized anxiety disorder Established Patient with Zach Grimaldo [facility] 07/28/2018 Assess diabetes mellitus Medical Establi shed Patient with Vahid Nagy [facility] 07/28/2018 Assess generalized anxiety disorder [facility] Established Patient with Vahidchristiano Nagy [facility] 07/28/2018 Assess lumbago Medical Established Patient with Vahidchristiano Nagy [facility] 07/28/2018 Assess perennial allergic rh initis with seasonal variation Medical Established Patient with Vahid Nagy [facility] 07/28/2018 Body mass index Medical Established Patient with Vahid Nagy [facility] 07/28/2018 Obesity due to excess calories Medical E stablished Patient with Vahid Nagy [facility] 07/28/2018 Assess tobacco abuse Medical Established Patient with Vahidchristiano Nagy [facility] 06/27/2018 Assessment of chronic lower back pain Me dical Established Patient with Vahidchristiano Nagy [facility] 06/27/2018 Obesity due to excess calories Medical E stablished Patient with Vahid Angelita [facility] 06/27/2018 Obesity due to excess calories Medical E stablished Patient with Vahid Nagy [facility] 05/30/2018 Diagnosis Groin strain, right, initial encounter Findings Encounter Date Depressive disorder Established Patie nt with Nitza Mark [facility] 10/21/2019 F63.89 - Other impulse disor ders : Drug seeking behavior Medical Established Patient with Shawna Hele [facility] 10/21/2019 Obesity due to excess calories Medical E stablished Patient with Shawna Hele [facility] 10/21/2019 S76.211D - Strain of adducto r muscle, fascia and tendon of right thigh, subsequent encounter Medical Established Patient with Shawna Holliday [facility] 10/21/2019 Z68.35 - Body mass index (BM I) 35.0-35.9, adult Medical Established Patient with Shawna Holliday [facility] 10/21/2019 Depressive disorder Established Patie nt with Leah Short [facility] 09/24/2019 Generalized anxiety disorder Establis hed Patient with Leah Short [facility] 09/24/2019 M54.5 - Low back pain Medical Establishe d Patient with Shawna Holliday [employer] 09/24/2019 Obesity due to excess calories Medical E stablished Patient with Shawnaariana Hele [employer] [facility] 09/24/2019 Z68.25 - Body mass index (BM I) 25.0-25.9, adult Medical Established Patient with Shawna Holliday [employer] 09/24/2019 Depressive disorder Telebehavioral He alth with Leah Short [facility] 09/15/2019 Generalized anxiety disorder [facility] with Leah Short [facility] 09/15/2019 Depressive disorder Telebehavioral He alth with Leah Short [facility] 08/26/2019 Generalized anxiety disorder [facility] with Leah Short [facility] 08/26/2019 Z68.37 - Body mass index (BM I) 37.0-37.9 adult Medical Established Patient with Vahid Breweren [facility] 05/01/2019 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 Established Patient with Zach Grimaldo [facility] 04/14/2019 F41.1 - Generalized anxiety disorder Established Patient with Zach Grimaldo [facility] 04/14/2019 Obesity due to excess calories Medical E stablished Patient with Vahid Angelita [facility] 04/14/2019 Z68.36 - Body mass index (BM I) 36.0-36.9 adult Medical Established Patient with Vahid Angelita [facility] 04/14/2019 Obesity due to excess calories Medical E stablished Patient with Vahid Angelita [facility] 03/20/2019 Z68.36 - Body mass index (BM I) 36.0-36.9 adult Medical Established Patient with Vahid Angelita [employer] 03/20/2019 Acute atopic conjunctivitis [Acute atopic conjunctivitis left eye] Medical Established Patient with Elena King [employer] [facility] 03/03/2019 Acute sinusitis Medical Established Patient with Elena King [employer] [facility] 03/03/2019 Body mass index [Body mass i ndex (BMI) 35.0-35.9 adult] Medical Established Patient with Elena King [facility] 03/03/2019 Generalized anxiety disorder BH Establis hed Patient with Zach Grimaldo [facility] 02/19/2019 Nicotine dependence BH Established Patie nt with Zach Grimaldo [facility] 02/19/2019 Persistent depressive disord er (dysthymia) BH Established Patient with Zach Grimaldo [facility] 02/19/2019 Body mass index Medical Established Patient with Vahid Nagy [facility] 02/19/2019 Generalized anxiety disorder Medical Est ablished Patient with Vahidchristiano Breweren [facility] 02/19/2019 Lumbago Medical Established Patient with Vahidchristiano Breweren [facility] 02/19/2019 Lumbar radiculopathy Medical Established Patient with Vahidchristiano Nagy [facility] 02/19/2019 Obesity due to excess calories Medical E stablished Patient with Vahidchristiano Breweren [facility] 02/19/2019 Body mass index Medical Established Patient with Vahid Nagy [facility] 01/22/2019 Obesity due to excess calories Medical E stablished Patient with Vahid Nagy [facility] 01/22/2019 Body mass index [Body mass i ndex (BMI) 35.0-35.9 adult] Medical Established Patient with Elena King [facility] 01/12/2019 Diabetes Risk Test Score was three score 01/12/2019 Medical Established Patient with Elena King [facility] 01/12/2019 Fagerstrom Score was 0 01/12/2019 Medica l Established Patient with Elena King [facility] 01/12/2019 Limb pain of shoulder region Medical Est ablished Patient with Elena King [facility] 01/12/2019 Obesity due to excess calories Medical E stablished Patient with Elena King [facility] 01/12/2019 PHQ-9: total score was 18 01/12/2019 Med ical Established Patient with Elena King [facility] 01/12/2019 Assess bronchitis Medical Established Patient with Vahid Nagy [facility] 12/11/2018 Irreducible ventral hernia Medical Estab lished Patient with Vahid Nagy [facility] 12/11/2018 Obesity due to excess calories Medical E stablished Patient with Vahidchristiano Nagy [facility] 12/11/2018 Z68.32 - Body mass index (BM I) 32.0-32.9 adult Medical Established Patient with Vahid Nagy [facility] 12/11/2018 Body mass index Medical Established Patient with Vahid Angelita [facility] 10/30/2018 Assess dermatitis Medical Established Patient with Vahid Angelita [facility] 09/30/2018 Assess urinary tract infection Medical E stablished Patient with Vahid Nagy [facility] 09/30/2018 Body mass index Medical Established Patient with Vahid Nagy [facility] 08/27/2018 Obesity due to excess calories Medical E stablished Patient with Vahid Nagy [facility] 08/27/2018 F17.210 - Nicotine dependenc e, cigarettes, uncomplicated BH Established Patient with Zach Grimaldo [facility] 07/28/2018 F34.1 - Dysthymic disorder Establishe d Patient with Zach Grimaldo [facility] 07/28/2018 F41.1 - Generalized anxiety disorder Established Patient with Zach Grimaldo [facility] 07/28/2018 Assess diabetes mellitus Medical Establi shed Patient with Vahid Nagy [facility] 07/28/2018 Assess generalized anxiety disorder [facility] иван Established Patient with Vahid Nagy [facility] 07/28/2018 Assess lumbago Medical Established Patient with Vahidchristiano Nagy [facility] 07/28/2018 Assess perennial allergic rh initis with seasonal variation Medical Established Patient with Vahid Nagy [facility] 07/28/2018 Body mass index Medical Established Patient with Vahid Nagy [facility] 07/28/2018 Obesity due to excess calories Medical E stablished Patient with Vahid Nagy [facility] 07/28/2018 Assess tobacco abuse Medical Established Patient with Vahid Nagy [facility] 06/27/2018 Assessment of chronic lower back pain Me dical Established Patient with Vhaid Nagy [facility] 06/27/2018 Obesity due to excess calories Medical E stablished Patient with Vahid Nagy [facility] 06/27/2018 Obesity due to excess calories Medical E stablished Patient with Vahid Nagy [facility] 05/30/2018 Findings Encounter Date Obesity due to excess calories Medical E stablished Patient with Vahid Nagy [facility] 11/16/2019 Z68.34 - Body mass index (BM I) 34.0-34.9, adult Medical Established Patient with Vahid Nagy [facility] 11/16/2019 Depressive disorder Established Patie nt with Nitza Mark [facility] 10/21/2019 F63.89 - Other impulse disor ders : Drug seeking behavior Medical Established Patient with Shawna Hele [facility] 10/21/2019 Obesity due to excess calories Medical E stablished Patient with Shawna Mg [facility] 10/21/2019 S76.211D - Strain of adducto r muscle, fascia and tendon of right thigh, subsequent encounter Medical Established Patient with Shawna Holliday [facility] 10/21/2019 Z68.35 - Body mass index (BM I) 35.0-35.9, adult Medical Established Patient with Shawna Holliday [employer] 10/21/2019 Depressive disorder Established Patie nt with Leah Short [facility] 09/24/2019 Generalized anxiety disorder Establis hed Patient with Leah Short [facility] 09/24/2019 M54.5 - Low back pain Medical Establishe d Patient with Shawna Holliday [employer] 09/24/2019 Obesity due to excess calories Medical E stablished Patient with Shawna Holliday [employer] 09/24/2019 Z68.25 - Body mass index (BM I) 25.0-25.9, adult Medical Established Patient with Shawna Holliday [employer] 09/24/2019 Depressive disorder Telebehavioral He alth with Leah Short [facility] 09/15/2019 Generalized anxiety disorder [facility] with Leah Short [facility] 09/15/2019 Depressive disorder Telebehavioral He alth with Leah Short [facility] 08/26/2019 Generalized anxiety disorder [facility] with Leah Short [facility] 08/26/2019 Z68.37 - Body mass index (BM I) 37.0-37.9 adult Medical Established Patient with Vahidchrisitano Breweren [facility] 05/01/2019 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 Established Patient with Zach Grimaldo [facility] 04/14/2019 F41.1 - Generalized anxiety disorder Established Patient with Zachernestina Grimaldo [facility] 04/14/2019 Obesity due to excess calories Medical E stablished Patient with Vahid Angelita [facility] 04/14/2019 Z68.36 - Body mass index (BM I) 36.0-36.9 adult Medical Established Patient with Vahid Angelita [employer] 04/14/2019 Obesity due to excess calories Medical E stablished Patient with Vahid Angelita [employer] 03/20/2019 Z68.36 - Body mass index (BM I) 36.0-36.9 adult Medical Established Patient with Vahid Angelita [employer] 03/20/2019 Acute atopic conjunctivitis [Acute atopic conjunctivitis left eye] Medical Established Patient with Elena King [employer] 03/03/2019 Acute sinusitis Medical Established Patient with Elena King [employer] 03/03/2019 Body mass index [Body mass i ndex (BMI) 35.0-35.9 adult] Medical Established Patient with Elena King [facility] 03/03/2019 Generalized anxiety disorder BH Establis hed Patient with Zach Grimaldo [facility] 02/19/2019 Nicotine dependence BH Established Patie nt with Zach Grimaldo [facility] 02/19/2019 Persistent depressive disord er (dysthymia) BH Established Patient with Zach Grimaldo [facility] 02/19/2019 Body mass index Medical Established Patient with Vahid Breweren [facility] 02/19/2019 Generalized anxiety disorder Medical Est ablished Patient with Vahid Angelita [facility] 02/19/2019 Lumbago Medical Established Patient with Vahidchristiano Breweren [facility] 02/19/2019 Lumbar radiculopathy Medical Established Patient with Vahidchristiano Breweren [facility] 02/19/2019 Obesity due to excess calories Medical E stablished Patient with Vahidchristiano Breweren [facility] 02/19/2019 Body mass index Medical Established Patient with Vahid Nagy [facility] 01/22/2019 Obesity due to excess calories Medical E stablished Patient with Vahid Breweren [facility] 01/22/2019 Body mass index [Body mass i ndex (BMI) 35.0-35.9 adult] Medical Established Patient with Elena King [facility] 01/12/2019 Diabetes Risk Test Score was three score 01/12/2019 Medical Established Patient with Elena King [facility] 01/12/2019 Fagerstrom Score was 0 01/12/2019 Medica l Established Patient with Elena King [facility] 01/12/2019 Limb pain of shoulder region Medical Est ablished Patient with Elena King [facility] 01/12/2019 Obesity due to excess calories Medical E stablished Patient with Elena King [facility] 01/12/2019 PHQ-9: total score was 18 01/12/2019 Med ical Established Patient with Elena King [facility] 01/12/2019 Assess bronchitis Medical Established Patient with Vahid Breweren [facility] 12/11/2018 Irreducible ventral hernia Medical Estab lished Patient with Vahid Angelita [facility] 12/11/2018 Obesity due to excess calories Medical E stablished Patient with Vahidchristiano Breweren [facility] 12/11/2018 Z68.32 - Body mass index (BM I) 32.0-32.9 adult Medical Established Patient with Vahid Angelita [facility] 12/11/2018 Body mass index Medical Established Patient with Vahid Angelita [facility] 10/30/2018 Assess dermatitis Medical Established Patient with Vahid Angelita [facility] 09/30/2018 Assess urinary tract infection Medical E stablished Patient with Vahid Nagy [facility] 09/30/2018 Body mass index Medical Established Patient with Vahid Nagy [facility] 08/27/2018 Obesity due to excess calories Medical E stablished Patient with Vahid Nagy [facility] 08/27/2018 F17.210 - Nicotine dependenc e, cigarettes, uncomplicated Established Patient with Zach Grimaldo [facility] 07/28/2018 F34.1 - Dysthymic disorder Establishe d Patient with Zach Grimaldo [facility] 07/28/2018 F41.1 - Generalized anxiety disorder Established Patient with Zach Grimaldo [facility] 07/28/2018 Assess diabetes mellitus Medical Establi shed Patient with Vahid Nagy [facility] 07/28/2018 Assess generalized anxiety disorder [facility] Established Patient with Vahid Nagy [facility] 07/28/2018 Assess lumbago Medical Established Patient with Vahid Nagy [facility] 07/28/2018 Assess perennial allergic rh initis with seasonal variation Medical Established Patient with Vahid Nagy [facility] 07/28/2018 Body mass index Medical Established Patient with Vahid Nagy [facility] 07/28/2018 Obesity due to excess calories Medical E stablished Patient with Vahid Nagy [facility] 07/28/2018 Assess tobacco abuse Medical Established Patient with Vahid Nagy [facility] 06/27/2018 Assessment of chronic lower back pain Me dical Established Patient with Vahid Nagy [facility] 06/27/2018 Obesity due to excess calories Medical E stablished Patient with Vahid Nagy [facility] 06/27/2018 Obesity due to excess calories Medical E stablished Patient with Vahid Nagy [facility] 05/30/2018 Findings Encounter Date Depression Established Patie nt with Leah Arroyo [facility] 01/28/2020 Generalized anxiety disorder Establis hed Patient with Leah Short [facility] 01/28/2020 Obesity due to excess calories Medical E stablished Patient with Vahid Nagy [facility] 01/28/2020 Z68.33 - Body mass index [BM I] 33.0-33.9, adult Medical Established Patient with Vahid Nagy [facility] 01/28/2020 Obesity due to excess calories Medical E stablished Patient with Vahidchristiano Nagy [facility] 11/16/2019 Z68.34 - Body mass index (BM I) 34.0-34.9, adult Medical Established Patient with Vahid Nagy [facility] 11/16/2019 Depressive disorder Established Patie nt with Nitza Mark [facility] 10/21/2019 F63.89 - Other impulse disor ders : Drug seeking behavior Medical Established Patient with Shawna Holliday [employer] 10/21/2019 Obesity due to excess calories Medical E stablished Patient with Shawna Holliday [employer] 10/21/2019 S76.211D - Strain of adducto r muscle, fascia and tendon of right thigh, subsequent encounter Medical Established Patient with Shawna Holliday [employer] 10/21/2019 Z68.35 - Body mass index (BM I) 35.0-35.9, adult Medical Established Patient with Shawna Holliday [employer] 10/21/2019 Depressive disorder Established Patie nt with Leah Short [facility] 09/24/2019 Generalized anxiety disorder Establis hed Patient with Leah Short [facility] 09/24/2019 M54.5 - Low back pain Medical Establishe d Patient with Shawna Holliday [employer] 09/24/2019 Obesity due to excess calories Medical E stablished Patient with Shawna Holliday [employer] 09/24/2019 Z68.25 - Body mass index (BM I) 25.0-25.9, adult Medical Established Patient with Shawna Holliday [employer] 09/24/2019 Depressive disorder Telebehavioral He alth with Leah Short [facility] 09/15/2019 Generalized anxiety disorder [facility] with Leah Short [facility] 09/15/2019 Depressive disorder Telebehavioral He alth with Leah Short [facility] 08/26/2019 Generalized anxiety disorder [facility] with Leah Short [facility] 08/26/2019 Z68.37 - Body mass index (BM I) 37.0-37.9 adult Medical Established Patient with Vahidhcristiano Breweren [facility] 05/01/2019 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 Established Patient with Zach Grimaldo [facility] 04/14/2019 F41.1 - Generalized anxiety disorder Established Patient with Zach Grimaldo [facility] 04/14/2019 Obesity due to excess calories Medical E stablished Patient with Vahid Angelita [employer] 04/14/2019 Z68.36 - Body mass index (BM I) 36.0-36.9 adult Medical Established Patient with Vahid Angelita [employer] 04/14/2019 Obesity due to excess calories Medical E stablished Patient with Vahid Angelita [facility] 03/20/2019 Z68.36 - Body mass index (BM I) 36.0-36.9 adult Medical Established Patient with Vahid Nagy [facility] 03/20/2019 Acute atopic conjunctivitis [Acute atopic conjunctivitis left eye] Medical Established Patient with Elena Diazer [facility] 03/03/2019 Acute sinusitis Medical Established Patient with Elena Diazer [facility] 03/03/2019 Body mass index [Body mass i ndex (BMI) 35.0-35.9 adult] Medical Established Patient with Elena King [facility] 03/03/2019 Generalized anxiety disorder Establis hed Patient with Zachernestina Grimaldo [facility] 02/19/2019 Nicotine dependence Established Patie nt with Zach Grimaldo [facility] 02/19/2019 Persistent depressive disord er (dysthymia) Established Patient with Zach Grimaldo [facility] 02/19/2019 Body mass index Medical Established Patient with Vahid Nagy [facility] 02/19/2019 Generalized anxiety disorder Medical Est ablished Patient with Vahid Angelita [facility] 02/19/2019 Lumbago Medical Established Patient with Vahid Angelita [facility] 02/19/2019 Lumbar radiculopathy Medical Established Patient with Vahid Breweren [facility] 02/19/2019 Obesity due to excess calories Medical E stablished Patient with Vahid Breweren [facility] 02/19/2019 Body mass index Medical Established Patient with Vahid Nagy [facility] 01/22/2019 Obesity due to excess calories Medical E stablished Patient with Vahid Nagy [facility] 01/22/2019 Body mass index [Body mass i ndex (BMI) 35.0-35.9 adult] Medical Established Patient with Elena Diazer [facility] 01/12/2019 Diabetes Risk Test Score was three score 01/12/2019 Medical Established Patient with Elena Diazer [facility] 01/12/2019 Fagerstrom Score was 0 01/12/2019 Medica l Established Patient with Elena Diazer [facility] 01/12/2019 Limb pain of shoulder region Medical Est ablished Patient with Elena Diazer [facility] 01/12/2019 Obesity due to excess calories Medical E stablished Patient with Elena King [facility] 01/12/2019 PHQ-9: total score was 18 01/12/2019 Med ical Established Patient with Elena King [facility] 01/12/2019 Assess bronchitis Medical Established Patient with Vahid Angelita [facility] 12/11/2018 Irreducible ventral hernia Medical Estab lished Patient with Vahid [facility] 12/11/2018 Obesity due to excess calories Medical E stablished Patient with Vahid [facility] 12/11/2018 Z68.32 - Body mass index (BM I) 32.0-32.9 adult Medical Established Patient with Vahid [facility] 12/11/2018 Body mass index [facility] Assess dermatitis [facility] Assess urinary tract infection [facility] Body mass index Medical Established Patient with Vahid [facility] 08/27/2018 Obesity due to excess calories Medical E stablished Patient with Vahid [facility] 08/27/2018 F17.210 - Nicotine dependenc e, cigarettes, uncomplicated Established Patient with Zach Grimaldo [facility] 07/28/2018 F34.1 - Dysthymic disorder Establishe d Patient with Zach Grimaldo [facility] 07/28/2018 F41.1 - Generalized anxiety disorder Established Patient with Zach Grimaldo [facility] 07/28/2018 Assess diabetes mellitus Medical Establi shed [facility] Assess generalized anxiety disorder [facility] иван [facility]/2018 Assess lumbago Medical Established Patient with Vahid [facility] 07/28/2018 Assess perennial allergic rh initis with seasonal variation Medical Established Patient with Vahid [facility] 07/28/2018 Body mass index Medical Established Patient with Vahid [facility] 07/28/2018 Obesity due to excess calories Medical E stablished Patient with Vahid [facility] 07/28/2018 Assess tobacco abuse Medical Establ[facility] Assessment of chronic lower back pain Me dical Established [facility]/2018 Obesity due to excess calories Medical E stablished Patient with Vahid [facility] 06/27/2018 Obesity due to excess calories Medical E stablished [facility] Diagnosis Osteoarthritis, unspecified osteoarthritis type, unspecified [...] Medical E stablished Patient with Vahid Angelita [facility] 04/12/2020 Z68.33 - Body mass index [BM I] 33.0-33.9, adult Medical Established Patient with Vahidchristiano Breweren [employer] 04/12/2020 Depression Established Patie nt with Leah Short [facility] 01/28/2020 Generalized anxiety disorder Establis hed Patient with Leah Short [facility] 01/28/2020 Obesity due to excess calories Medical E stablished Patient with Vahid Angelita [facility] 01/28/2020 Z68.33 - Body mass index [BM I] 33.0-33.9, adult Medical Established Patient with Vahid Angelita [facility] 01/28/2020 Obesity due to excess calories Medical E stablished Patient with Vahid Angelita [facility] 11/16/2019 Z68.34 - Body mass index (BM I) 34.0-34.9, adult Medical Established Patient with Vahidchristiano Nagy [facility] 11/16/2019 Depressive disorder Established Patie nt with Nitza Mark [facility] 10/21/2019 F63.89 - Other impulse disor ders : Drug seeking behavior Medical Established Patient with Shawna Holliday [facility] 10/21/2019 Obesity due to excess calories Medical E stablished Patient with Shawna Mg [facility] 10/21/2019 S76.211D - Strain of adducto r muscle, fascia and tendon of right thigh, subsequent encounter Medical Established Patient with Shawna Holliday [facility] 10/21/2019 Z68.35 - Body mass index (BM I) 35.0-35.9, adult Medical Established Patient with Shawna Hele [facility] 10/21/2019 Depressive disorder Established Patie nt with Leah Short [facility] 09/24/2019 Generalized anxiety disorder Establis hed Patient with Leah Short [facility] 09/24/2019 M54.5 - Low back pain Medical Establishe d Patient with Shawna Holliday [facility] COUNSELLOR 09/24/2019 Obesity due to excess calories Medical E stablished Patient with Shawna Holliday STUDENT COUNSELLOR 09/24/2019 Z68.25 - Body mass index (BM I) 25.0-25.9, adult Medical Established Patient with Shawna Holliday STUDENT COUNSELLOR 09/24/2019 Depressive disorder Telebehavioral He alth with Leah Short LISWS 09/15/2019 Generalized anxiety disorder Telebeha vioral Health with Leah Short LISWS 09/15/2019 Depressive disorder Telebehavioral He alth with Leah Short LISWS 08/26/2019 Generalized anxiety disorder Telebeha vioral Health with Leah Short LISWS 08/26/2019 Z68.37 - Body mass index (BM I) 37.0-37.9 adult Medical Established Patient with Vahid Angelita [facility] 05/01/2019 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 Established Patient with Zach Grimaldo [facility] 04/14/2019 F41.1 - Generalized anxiety disorder Established Patient with Zach Grimaldo [facility] 04/14/2019 Obesity due to excess calories Medical E stablished Patient with Vahid Angelita [facility] 04/14/2019 Z68.36 - Body mass index (BM I) 36.0-36.9 adult Medical Established Patient with Vahid Angelita [facility] 04/14/2019 Obesity due to excess calories Medical E stablished Patient with Vahid Angelita [facility] 03/20/2019 Z68.36 - Body mass index (BM I) 36.0-36.9 adult Medical Established Patient with Vahid Angelita [facility] 03/20/2019 Acute atopic conjunctivitis [Acute atopic conjunctivitis left eye] Medical Established Patient with Elena King [facility] 03/03/2019 Acute sinusitis Medical Established Patient with Elena King [facility] 03/03/2019 Body mass index [Body mass i ndex (BMI) 35.0-35.9 adult] Medical Established Patient with Elena King STUDENT COUNSELLOR 03/03/2019 Generalized anxiety disorder Establis hed Patient with Zach Grimaldo [facility] 02/19/2019 Nicotine dependence Established Patie nt with Zachernestina Grimaldo [facility] 02/19/2019 Persistent depressive disord er (dysthymia) Established Patient with Zach Dillan [facility] 02/19/2019 Body mass index Medical Established Patient with Vahid Nagy [facility] 02/19/2019 Generalized anxiety disorder Medical Est ablished Patient with Vahid Nagy [facility] 02/19/2019 Lumbago Medical Established Patient with Vahid Nagy [facility] 02/19/2019 Lumbar radiculopathy Medical Established Patient with Vahid Nagy [facility] 02/19/2019 Obesity due to excess calories Medical E stablished Patient with Vahid Nagy [facility] 02/19/2019 Body mass index Medical Established Patient with Vahid Nagy [facility] 01/22/2019 Obesity due to excess calories Medical E stablished Patient with Vahid Nagy [facility] 01/22/2019 Body mass index [Body mass i ndex (BMI) 35.0-35.9 adult] Medical Established Patient with Elena Malik [facility] 01/12/2019 Diabetes Risk Test Score was three score 01/12/2019 Medical Established Patient with Elena Diazer [facility] 01/12/2019 Fagerstrom Score was 0 01/12/2019 Medica l Established Patient with Elena Diazer [facility] 01/12/2019 Limb pain of shoulder region Medical Est ablished Patient with Elena Diazer [facility] 01/12/2019 Obesity due to excess calories Medical E stablished Patient with Elena King [facility] 01/12/2019 PHQ-9: total score was 18 01/12/2019 Med ical Established Patient with Elena Malik [facility] 01/12/2019 Assess bronchitis Medical Established Patient with Vahid Breweren [facility] 12/11/2018 Irreducible ventral hernia Medical Estab lished Patient with Vahid Nagy [facility] 12/11/2018 Obesity due to excess calories Medical E stablished Patient with Vahid Nagy [facility] 12/11/2018 Z68.32 - Body mass index (BM I) 32.0-32.9 adult Medical Established Patient with Vahid Angelita [facility] 12/11/2018 Body mass index Medical Established Patient with Vahid Angelita [facility] 10/30/2018 Assess dermatitis Medical Established Patient with Vahid Angelita [facility] 09/30/2018 Assess urinary tract infection Medical E stablished Patient with Vahid Angelita [facility] 09/30/2018 Body mass index Medical Established Patient with Vahid Angelita [facility] 08/27/2018 Obesity due to excess calories Medical E stablished Patient with Vahid Nagy [facility] 08/27/2018 F17.210 - Nicotine dependenc e, cigarettes, uncomplicated Established Patient with Zach Grimaldo [facility] 07/28/2018 F34.1 - Dysthymic disorder Establishe d Patient with Zach Grimaldo [facility] 07/28/2018 F41.1 - Generalized anxiety disorder Established Patient with Zach Grimaldo [facility] 07/28/2018 Assess diabetes mellitus Medical Establi shed Patient with Vahid Nagy [facility] 07/28/2018 Assess generalized anxiety disorder [facility] Established Patient with Vahid Nagy [facility] 07/28/2018 Assess lumbago Medical Established Patient with Vahid Nagy [facility] 07/28/2018 Assess perennial allergic rh initis with seasonal variation Medical Established Patient with Vahid Nagy [facility] 07/28/2018 Body mass index Medical Established Patient with Vahid Nagy [facility] 07/28/2018 Obesity due to excess calories Medical E stablished Patient with Vahid Nagy [facility] 07/28/2018 Assess tobacco abuse Medical Established Patient with Vahid Nagy [facility] 06/27/2018 Assessment of chronic lower back pain Me dical Established Patient with Vahid Nagy [facility] 06/27/2018 Obesity due to excess calories Medical E stablished Patient with Vahid Nagy [facility] 06/27/2018 Obesity due to excess calories Medical E stablished Patient with Vahid Nagy [facility] 05/30/2018 Diagnosis Acute right-sided low back pain without sciatica- Primary Findings Encounter Date Body mass index Medical Established Patient with Vahid Nagy [facility] 10/30/2018 Assess dermatitis Medical Established Patient with Vahid Nagy [facility] 09/30/2018 Assess urinary tract infection Medical E stablished Patient with Vahid Nagy [facility] 09/30/2018 Body mass index Medical Established Patient with Vahid Nagy [facility] 08/27/2018 Obesity due to excess calories Medical E stablished Patient with Vahid Nagy [facility] 08/27/2018 F17.210 - Nicotine dependenc e, cigarettes, uncomplicated Established Patient with Zach Grimaldo [facility] 07/28/2018 F34.1 - Dysthymic disorder Establishe d Patient with Zach Grimaldo [facility] 07/28/2018 F41.1 - Generalized anxiety disorder Established Patient with Zach Grimaldo [facility] 07/28/2018 Assess diabetes mellitus Medical Establi shed Patient with Vahid Nagy [facility] 07/28/2018 Assess generalized anxiety disorder Medi иван Established Patient with Vahid Nagy [facility] 07/28/2018 Assess lumbago Medical Established Patient with Vahid Nagy [facility] 07/28/2018 Assess perennial allergic rh initis with seasonal variation Medical Established Patient with Vahid Nagy [facility] 07/28/2018 Body mass index Medical Established Patient with Vahid Nagy [facility] 07/28/2018 Obesity due to excess calories Medical E stablished Patient with Vahid Nagy [facility] 07/28/2018 Assess tobacco abuse Medical Established Patient with Vahid Nagy [facility] 06/27/2018 Assessment of chronic lower back pain Me dical Established Patient with Vahid Nagy [facility] 06/27/2018 Obesity due to excess calories Medical E stablished Patient with Vahid Nagy [facility] 06/27/2018 Obesity due to excess calories Medical E stablished Patient with Vahid Nagy [facility] 05/30/2018 Findings Encounter Date Generalized anxiety disorder Establis hed Patient with Zach Grimaldo [facility] 02/19/2019 Nicotine dependence Established Patie nt with Zach Grimaldo [facility] 02/19/2019 Persistent depressive disord er (dysthymia) Established Patient with Zach Grimaldo [facility] 02/19/2019 Body mass index Medical Established Patient with Vahid Nagy [facility] 02/19/2019 Generalized anxiety disorder Medical Est ablished Patient with Vahid Nagy [facility] 02/19/2019 Lumbago Medical Established Patient with Vahid Nagy [facility] 02/19/2019 Lumbar radiculopathy Medical Established Patient with Vahid Nagy [facility] 02/19/2019 Obesity due to excess calories Medical E stablished Patient with Vahid Nagy [facility] 02/19/2019 Body mass index Medical Established Patient with Vahid Nagy [facility] 01/22/2019 Obesity due to excess calories Medical E stablished Patient with Vahid Nagy [facility] 01/22/2019 Body mass index [Body mass i ndex (BMI) 35.0-35.9 adult] Medical Established Patient with Elena King [facility] 01/12/2019 Diabetes Risk Test Score was three score 01/12/2019 Medical Established Patient with Elena King [facility] 01/12/2019 Fagerstrom Score was 0 01/12/2019 Medica l Established Patient with Elnea King [facility] 01/12/2019 Limb pain of shoulder region Medical Est ablished Patient with Elena King [facility] 01/12/2019 Obesity due to excess calories Medical E stablished Patient with Elena King [facility] 01/12/2019 PHQ-9: total score was 18 01/12/2019 Med ical Established Patient with Elena [facility] 01/12/2019 Assess bronchitis [facility] Irreducible ventral hernia Medical Estab lished Patient with Vahid [facility] 12/11/2018 Obesity due to excess calories Medical E stablished Patient with Vahid [facility] 12/11/2018 Z68.32 - Body mass index (BM I) 32.0-32.9 adult Medical Established Patient with Vahid [facility] 12/11/2018 Body mass index Medical [facility] Assess dermatitis Medical Established Patient with Vahid [facility] 09/30/2018 Assess urinary tract infection Medical E stablished Patient with Vahid [facility] 09/30/2018 Body mass index Medical [facility]2018 Obesity due to excess calories Medical E stablished Patient with Vahid [facility] 08/27/2018 F17.210 - Nicotine dependenc e, cigarettes, uncomplicated BH Established Patient with Zachernestina Grimaldo [facility] 07/28/2018 F34.1 - Dysthymic disorder Establishe d Patient with Zach Grimaldo [facility] 07/28/2018 F41.1 - Generalized anxiety disorder Established Patient with Zach Grimaldo [facility] 07/28/2018 Assess diabetes mellitus Medical Establi shed [facility] Assess generalized anxiety disorder [facility] Established Patient with Vahid [facility] 07/28/2018 Assess lumbago Medical Established Patient with Vahid [facility] 07/28/2018 Assess perennial allergic rh initis with seasonal variation Medical Established Patient with Vahid [facility] 07/28/2018 Body mass index Medical Established Patient with Vahid [facility] 07/28/2018 Obesity due to excess calories Medical E stablished Patient with Vahid [facility] 07/28/2018 Assess tobacco abuse Medical Established Patient with Vahid [facility] 06/27/2018 Assessment of chronic lower back pain Me dical Established [facility]/2018 Obesity due to excess calories Medical E stablished Patient with Vahid [facility] 06/27/2018 Obesity due to excess calories Medical E stablished [facility] Diagnosis Spinal stenosis of lumbar region, unspecified whether neurogenic claudication present DDD (degenerative disc disease), lumbar Degeneration of lumbar or lumbosacral intervertebral disc Diagnosis Atherosclerosis of artery of extremity with intermittent claudication (HCC) Incontinence Unspecified urinary incontinence Chronic obstructive pulmonary disease, unspecified COPD type ([facility]) Suspected COVID-19 virus infection AMS (altered mental status) Acute on chronic respiratory failure with hypercapnia ([facility]) CAD S/P percutaneous coronary angioplasty Coronary atherosclerosis of [place] coronary artery Tobacco abuse Tobacco use disorder Diabetes mellitus ([facility]) Type II or unspecified type diabetes mellitus without mention of complication, not stated as uncontrolled Hypertension Unspecified essential hypertension E. coli UTI Urinary tract infection, site not specified Diabetic polyneuropathy associated with type 2 diabetes mellitus ([facility]) COPD exacerbation ([facility]) Obstructive chronic bronchitis with exacerbation Findings Encounter Date Assess bronchitis Medical Established Patient with Vahid Nagy [facility] 12/11/2018 Irreducible ventral hernia Medical Estab lished Patient with Vahid Angelita [facility] 12/11/2018 Obesity due to excess calories Medical E stablished [facility] 12[facility]11/2018 Z68.32 - Body mass index (BM I) 32.0-32.9 adult Medical Established [facility] Body mass index Medical Establ[facility] 10/30/2018 Assess dermatitis Medical Established [facility] 09/[facility]/2018 Assess urinary tract infection Medical E stablished Patient with Vahid Angelita [facility] 09/30/2018 Body mass index Medical Establ[facility] 08/27/2018 Obesity due to excess calories Medical E stablished [facility] 08/27/2018 F17.210 - Nicotine dependenc e, cigarettes, uncomplicated Established Patient with Zachernestina Grimaldo [facility] 07/28/2018 F34.1 - Dysthymic disorder Establishe d Patient with Zachernestina Grimaldo [facility] 07/28/2018 F41.1 - Generalized anxiety disorder Established Patient with Zach Grimaldo [facility] 07/28/2018 Assess diabetes mellitus Medical Establi shed Patient with Vahid Angelita [facility] 07/28/2018 Assess generalized anxiety disorder [facility] иван Established Patient with Vahid Angelita [facility] 07/28/2018 Assess lumbago Medical Established Patient with Vahid Angelita [facility] 07/28/2018 Assess perennial allergic rh initis with seasonal variation Medical Established Patient with Vahid Angelita [facility] 07/28/2018 Body mass index Medical Established Patient with Vahid Nagy [facility] 07/28/2018 Obesity due to excess calories Medical E stablished Patient with Vahid Nagy [facility] 07/28/2018 Assess tobacco abuse Medical Established Patient with Vahid Nagy [facility] 06/27/2018 Assessment of chronic lower back pain Me dical Established Patient with Vahid Nagy [facility] 06/27/2018 Obesity due to excess calories Medical E stablished Patient with Vahid Nagy [facility] 06/27/2018 Obesity due to excess calories Medical E stablished Patient with Vahid Nagy [facility] 05/30/2018 Instructions Instructions not supported for [...] No History of Present Illness Recorded* Fátima Adame - 09/03/2019 9:30 AM EDT Explained policies [...] unit via cart with [facility] to [facility] Belongings and paperwork in hand. [...] No discharge needs at this time Contact: [phone] * Fadia Rojas RN - 03/18/2020 5:44 [...] DO - 03/19/2020 8:14 AM EST Eliseo Supervisor Typesetting Progress Note Date: 03/19/2020 Patient name: Jonatan [...] stenosis) Assessment: 1. Unstable angina transferred from [place]. 2. CAD s/p PCI-mid and distal RCA [...] by: Kenneth Canales MD Fellow, Cardiovascular Diseases [facility] Attending Cyber Transport Systems Specialist Addendum: I have reviewed and performed the [...] questions. Joseph Hope DO, FACC, KESHA JUDD Chelsea Supervisor Typesetting [facility] * Rena Corona RN - 03/19/2020 1:52 AM EST Patient called out to technical writer regarding home medications zanaflex and ibuprofen. Hand Model reached out to rough planer tender Dr. Kent, Dr. Kent called technical writer and asked for technical writer to place orders for home dosing [...] AM EST Received post cath procedure to [facility] room 7. Assessment obtained. Restrictions reviewed [...] request was completed. 21 Rxs sent to [facility] in [place]. * Leti Castellon RN - 07/25/2019 1:06 PM EDT Nurse technical writer attempted to contact patients jesi Woods at listed phone number of [phone]. No answer, message left on voice mail to please call me at [phone]. * Wes Mcbride MD - 07/25/2019 6:24 AM EDT [facility] Department of Internal Medicine - Staff Internal Medicine Teaching Service Inpatient Daily Progress Note Date: 07/25/2019 Patient Name: Jonatan Olivarez Acct: [id number] Date of Admission: 07/18/2019 1:26 AM Date of : 1960 Primary Care Physician: Vahid Nagy APRN - STUDENT COUNSELLOR Attending Physician: Chago Boyd DO Room: [address] [place], [place] [id number] Number of days in the hospital: [...] Bonilla Catherine MD PGY-1, Internal Medicine Resident [facility] 07/25/2019, 6:24 AM Attending Physician Statement I [...] MD - 07/24/2019 4:34 PM EDT [facility] Department of Internal Medicine - Staff Internal Medicine Teaching Service ICU PATIENT TRANSFER NOTE Date: 07/24/2019 Patient Name: Jonatan Olivarez Acct: [id number] Date of Admission: 07/18/2019 1:26 AM Date of : 1960 Primary Care Physician: Vahid M Angelita, O AND M SUPERVISOR - STUDENT COUNSELLOR Attending Physician: Chago Boyd DO History Obtained [...] nasal cannula at home oxygen presented to [place] ER by family with history of fall. Patient was apparently found by family on the floor. Unknown downtime. [place] Patient had CT head which was normal, chest x-ray showed mild pulmonary edema. CT PE concerning forviral pneumonia. Because of concern for COVID patient was transferred to [facility]. COVID-19 testing was negative along with viral [...] mouth daily Historical Provider, Incontinence Supply Disposable [facility] Incontinence pads 150 per month. Please order pad that is covered by insurance plan 09/21/14 Kathie Oakley MD TRUETRACK TEST strip use as directed TO TEST BLOOD SUGAR three times a day 08/26/14 Kathie Oakley MD Blood Pressure Monitoring [facility] To monitor blood pressure as needed. Please order device that is covered by insurance. 06/28/14 Kelton Zazueta, O AND M SUPERVISOR - STUDENT COUNSELLOR Current Inpatient: Scheduled Meds: [START ON 07/25/2019] [...] Garett Catherine MD PGY-1, Internal Medicine Resident [facility] 07/24/2019, 5:33 PM Attending Physician Statement I [...] Patient's name: Jonatan Olivarez Patient's account/billing number: [id number] Patient's Date of : 1960 Age: 58 y.o. Date of Admission: 07/18/2019 1:26 AM Length of stay during current admission: 5 Primary Care Physician: IHLDA Land CNP Code Status: Full Code Mode [...] 2 diabetes mellitus who initially presented to [place] ED with altered mental status, hypoxia and hypercapnia and was intubated at [place]. CT PE negative for PE but concerning [...] Kristen Alexandre MD PGY-2, Internal medicine resident [facility], [place], [place] 07/24/2019 1:45 PM * Mely Virk, [...] 5. Fluid Accumulation-Mild fluid accumulation, Generalized 6. Cra Officer Strength-Not measured Nutrition Risk Level: High Nutrient Needs: Estimated Daily Total Kcal: 20-25 ~> 0461-2564 kcals/d Estimated Daily Protein (g): 1.2-2.0 gm/kg [...] wt loss x 7 mo per EMR Hagan Body Wt: 105 lb (47.6 kg), % Hagan Body 165% adm/ideal BMI Classification: BMI 30.0 - 34.9 Obese Class I(32.3) Nutrition Interventions: Continue current diet Continued Inpatient Monitoring, Education Not Indicated Nutrition Evaluation: Evaluation: Goals set Goals: po intake greater than 50% Monitoring: Meal Intake Contact Number: [phone] * Veronica Palacio, OT - 07/24/2019 10:12 AM EDT Occupational Therapy [address]Department[address] Daily Treatment Note NAME: Jonatan Olivarez : 1960 Date of Service: 07/24/2019 Discharge Recommendations: Patient would benefit from continued therapy after discharge Copied from Infectious Disease: Patient presented to [facility] on 07[facility] after a fall and [...] for viral pna She was transferred to [facility] for further care Assessment Performance deficits / [...] Patient's name: Jonatan Olivarez Patient's account/billing number: [id number] Patient's Date of : 1960 Age: 58 y.o. Date of Admission: 07/18/2019 1:26 AM Length of stay during current admission: 6 Primary Care Physician: Vahid Nagy APRN - STUDENT COUNSELLOR ICU Attending Physician: Dr. Austen Alvarez Code Status: Full Code Reason for ICU admission: Acute Hypoxic respiratory failure Patient is a 58-year-old female with past medical history of chronic respiratory failure, COPD, hypertension, CAD, PVD, diastolic heart failure, type 2 diabetes mellitus who initially presented to [place] ED with altered mental status, hypoxia and hypercapnia and was intubated at [place]. CT PE negative for PE but concerning [...] Date 07/24/19 0000 - 07/24/19 2359 Shift [id number] 0376-4229 [id number] 24 Hour Total INTAKE P.O.(mL/kg/hr) 960(1.4) 960 [...] Results Component Value Date PHART 7.321 07/17/2019 HMG7SPU 64.4 07/17/2019 PO2ART 37.1 07/17/2019 XWM5JCI 32.5 07/17/2019 GSU5RMP 33 07/18/2019 K6JJKCVX 64.5 07/17/2019 FIO2 NOT REPORTED 07/18/2019 Lactic [...] No results for input(s): LABIRON, TIBC, FERRITIN, DHSUUDWG45, FOLATE, OCCULTBLD in the last 72 hours. Cultures during this admission: Blood cultures: [] None drawn [x] Negative [] Positive (Details: ) Urine Culture: [] None drawn [] Negative [x] Positive (Details: ESCHERICHIA COLI >[id number] CFU/ML) Sputum Culture: [] None drawn [] [...] indicated. 11. Disposition. OK to transfer to [facility] surg monitored bed. Kristen Alexandre MD PGY-2, Internal medicine resident [facility], [place], [place] 07/24/2019 9:55 AM Associated attestation - Martin Alvarez MD - 07/24/2019 2:58 PM EDT Attending Physician Statement I have discussed the case of Jonatan Olivarez, including pertinent history and exam findings with the resident/fellow/SENIOR LIBRARIAN/PA. I have seen and examined the patient and the sims elements of the encounter have been performed by me. I agree with the assessment, plan and orders as documented by the resident/fellow/SENIOR LIBRARIAN/PA With changes made to the note as [...] monitor On Lovenox Transfer the patient to [facility] monitored bed We will follow the patient from pulmonary standpoint Martin Alvarez 07/24/2019 2:58 PM * Enzo Lerma PTA - 07/24/2019 8:30 AM EDT Physical Therapy Facility/Department: [address] Daily Treatment Note NAME: Jonatan Olivarez [...] mouth daily Historical Provider, Incontinence Supply Disposable [facility] Incontinence pads 150 per month. Please order pad that is covered by insurance plan 09/21/14 Kathie Oakley MD TRUETRACK TEST strip use as directed TO TEST BLOOD SUGAR three times a day 08/26/14 Kathie Oakley MD Blood Pressure Monitoring [facility] To monitor blood pressure as needed. Please order device that is covered by insurance. 06/28/14 Kelton Zazueta, O AND M SUPERVISOR - STUDENT COUNSELLOR . Recent Surgical History: none Assessment Peak [...] 07/23/2019 10:59 AM EDT Physical Therapy Facility/Department: [address] Initial Assessment NAME: Jonatan Olivarez : 1960 Date of Service: 07/23/2019 Jonatan Olivarez is a 58 y.o. medical history of severe COPD, smoker and chronic respiratory failure, on 2 L of nasal cannula at home oxygen presented to [place] ER by family with history of fall. [...] concern for COVID patient was transferred to [facility]. Discharge Recommendations: Continue to assess pending progress [...] Ambulation Assistance: Independent Transfer Assistance: Independent Active Training Personnel Supervisor: Yes Mode of Transportation: Car Occupation: On [...] Ambulation Assistance: Independent Transfer Assistance: Independent Active Training Personnel Supervisor: Yes Mode of Transportation: Car Occupation: On [...] 0-100% Score: 50.11 (07/23/19 1040) ADL Inpatient [facility] G-Code Modifier : CK (07/23/19 1040) Goals [...] Patient's name: Jonatan Henrywick Patient's account/billing number: [id number] Patient's Date of : 1960 Age: 58 y.o. Date of Admission: 07/18/2019 1:26 AM Length of stay during current admission: 5 Primary Care Physician: Vahid Nagy APRN - STUDENT COUNSELLOR ICU Attending Physician: Dr. Austen Alvarez Code Status: Full Code Reason for ICU admission: Acute Hypoxic respiratory failure Patient is a 58-year-old female with past medical history of chronic respiratory failure, COPD, hypertension, CAD, PVD, diastolic heart failure, type 2 diabetes mellitus who initially presented to [place] ED with altered mental status, hypoxia and hypercapnia and was intubated at [place]. CT PE negative for PE but concerning [...] Date 07/23/19 0000 - 07/23/19 2359 Shift [id number] 5855-2655 6663-6442 24 Hour Total INTAKE I.V.(mL/kg) 288.9(3.4) 288.9(3.4) [...] Results Component Value Date PHART 7.321 07/17/2019 SYZ6ZPQ 64.4 07/17/2019 PO2ART 37.1 07/17/2019 XXP2SYD 32.5 07/17/2019 ORZ1VEU 33 07/18/2019 [id number] 64.5 07/17/2019 FIO2 NOT REPORTED 07/18/2019 Lactic [...] No results for input(s): LABIRON, TIBC, FERRITIN, RLCFNEWU70, FOLATE, OCCULTBLD in the last 72 hours. [...] Discontinued ureña. 12. OK to transfer to [facility] monitored bed. Sera Moreira M.D. PGY 2 Department of Internal Medicine/ Critical care [facility]) 07/23/2019, 7:18 AM Associated attestation - Martin Alvarez MD - 07/23/2019 12:42 PM EDT Attending Physician Statement I have discussed the case of Jonatan Olivarez, including pertinent history and exam findings with the resident/fellow/SENIOR LIBRARIAN/PA. I have seen and examined the patient and the sims elements of the encounter have been performed by me. I agree with the assessment, plan and orders as documented by the resident/fellow/SENIOR LIBRARIAN/PA With changes made to the note as [...] on Lovenox Patient will be transferred to [facility] monitored bed We will follow the patient [...] Patient's name: Jonatan Henrywick Patient's account/billing number: [id number] Patient's Date of : 1960 Age: 58 y.o. Date of Admission: 07/18/2019 1:26 AM Length of stay during current admission: 4 Primary Care Physician: Vahid Nagy, HILDA - STUDENT COUNSELLOR ICU Attending Physician: Dr. Austen Alvarez Code Status: Full Code Reason for ICU admission: Acute Hypoxic respiratory failure Patient is a 58-year-old female with past medical history of chronic respiratory failure, COPD, hypertension, CAD, PVD, diastolic heart failure, type 2 diabetes mellitus who initially presented to [place] ED with altered mental status, hypoxia and hypercapnia and was intubated at [place] CT PE negative for PE but concerning [...] Date 07/22/19 0000 - 07/22/19 2359 Shift [id number] 8475-4694 24 Hour Total INTAKE I.V.(mL/kg) 470(5.4) 260(3) [...] Results Component Value Date PHART 7.321 07/17/2019 MYD2GTY 64.4 07/17/2019 PO2ART 37.1 07/17/2019 SGN5WYD 32.5 07/17/2019 TYG3YBE 33 07/18/2019 M9NSWJWO 64.5 07/17/2019 FIO2 NOT REPORTED 07/18/2019 Lactic [...] No results for input(s): LABIRON, TIBC, FERRITIN, ZDOODRRO72, FOLATE, OCCULTBLD in the last 72 hours. [...] 2 Department of Internal Medicine/ Critical care [facility]) 07/22/2019, 1:18 PM Associated attestation - Martin Alvarez MD - 07/22/2019 7:33 PM EDT Attending Physician Statement I have discussed the case of Jonatan Olivarez, including pertinent history and exam findings with the resident/fellow/SENIOR LIBRARIAN/PA. I have seen and examined the patient and the sims elements of the encounter have been performed by me. I agree with the assessment, plan and orders as documented by the resident/fellow/SENIOR LIBRARIAN/PA With changes made to the note as [...] AND/ASPEN Guidelines): 1. Energy Intake-Unable to assess DIRECTOR PUBLIC POLICY; currently meeting greater than 75% of estimated nutrition needs with tube feeding. 2. Weight Loss-5% loss or greater, x 7 mo 3. Fat Loss-No significant subcutaneous fat loss, 4. Muscle Loss-No significant muscle mass loss, 5. Fluid Accumulation-Mild fluid accumulation, Generalized 6. Cra Officer Strength-Not measured Nutrition Risk Level: High Nutrition Needs: Estimated Daily Total Kcal: 0805-5528 kcals/d Estimated Daily Protein (g): 60-95 g/d [...] g pro/day Additional Calories: Propofol at 4.7 mL/cl=858 kcal/day Anthropometric Measures: Ht: 5' 1 (154.9 cm) Current Body Wt: 192 lb 0.3 oz (87.1 kg) Admission Body Wt: 173 lb (78.5 kg) Weight Change: 6% wt loss x 7 mo per EMR Hagan Body Wt: 105 lb (47.6 kg), % Hagan Body 165% adm/ideal BMI Classification: BMI 30.0 - 34.9 Obese Class I(32.3) Nutrition Interventions: Continue current Tube Feeding Continued Inpatient Monitoring, Education Not Indicated Nutrition Evaluation: Evaluation: Goal achieved Goals: Start diet vs nutrition support within 24-72 hrs Monitoring: TF Intake, TF Tolerance, Weight, Pertinent Labs Contact Number: [phone] * Donna James RCP - 07/22/2019 8:07 [...] Patient's name: Jonatan Biggsck Patient's account/billing number: [id number] Patient's Date of : 1960 Age: 58 y.o. Date of Admission: 07/18/2019 1:26 AM Length of stay during current admission: 3 Primary Care Physician: Vahid Nagy, O AND M SUPERVISOR - STUDENT COUNSELLOR ICU Attending Physician: Dr. Alvarez Code Status: Full Code Reason for ICU admission: Acute Hypoxic respiratory failure Patient is a 58-year-old female with past medical history of chronic respiratory failure, COPD, hypertension, CAD, PVD, diastolic heart failure, type 2 diabetes mellitus who initially presented to [facility] with altered mental status, hypoxia and hypercapnia and was intubated at [facility]. CT PE negative for PE but [...] Date 07/21/19 0000 - 07/21/19 2359 Shift [id number] 9459-4459 5231-6067 24 Hour Total INTAKE I.V.(mL/kg) 534(6.2) 142(1.6) [...] Results Component Value Date PHART 7.321 07/17/2019 BHZ3FWU 64.4 07/17/2019 PO2ART 37.1 07/17/2019 LBW6GOJ 32.5 07/17/2019 GOD8OWR 33 07/18/2019 M4PJUPBJ 64.5 07/17/2019 FIO2 NOT REPORTED 07/18/2019 Lactic [...] No results for input(s): LABIRON, TIBC, FERRITIN, UVGVXPIB57, FOLATE, OCCULTBLD in the last 72 hours. [...] M.D. Department of Internal Medicine/ Critical care [facility]) 07/21/2019, 11:12 AM Associated attestation - Martin Alvarez MD - 07/21/2019 2:36 PM EDT Attending Physician Statement I have discussed the case of Jonatan Olivarez, including pertinent history and exam findings with the resident/fellow/SENIOR LIBRARIAN/PA. I have seen and examined the patient and the sims elements of the encounter have been performed by me. I agree with the assessment, plan and orders as documented by the resident/fellow/SENIOR LIBRARIAN/PA With changes made to the note as [...] 5. Fluid Accumulation-Mild fluid accumulation, Generalized 6. Cra Officer Strength-Not measured Nutrition Risk Level: High Nutrition Needs: Estimated Daily Total Kcal: 4559-3825 kcals/d Estimated Daily Protein (g): 60-100 g/d [...] wt loss x 7 mo per EMR Hagan Body Wt: 105 lb (47.6 kg), % Hagan Body 165% adm/ideal BMI Classification: BMI 30.0 [...] Tolerance, I&O, Weight, Pertinent Labs Contact Number: [phone] * Nasima Alvarez MD - 07/20/2019 9:53 AM EDT Critical Care Team - Daily Progress Note Date and time: 07/20/2019 9:53 AM Patient's name: Jonatan Biggsck Patient's account/billing number: [id number] Patient's Date of : 1960 Age: 58 y.o. Date of Admission: 07/18/2019 1:26 AM Length of stay during current admission: 2 Primary Care Physician: Vahid Nagy APRN - STUDENT COUNSELLOR ICU Attending Physician: Dr. Alvarez Code Status: Full Code Reason for ICU admission: Acute Hypoxic respiratory failure Patient is a 58-year-old female with past medical history of chronic respiratory failure, COPD, hypertension, CAD, PVD, diastolic heart failure, type 2 diabetes mellitus who initially presented to [facility] with altered mental status, hypoxia and hypercapnia and was intubated at [facility]. CT PE negative for PE but [...] Date 07/20/19 0000 - 07/20/19 2359 Shift [id number] 1459-9372 7999-4909 24 Hour Total INTAKE I.V.(mL/kg) 1443(18.3) 1443(18.3) [...] Results Component Value Date PHART 7.321 07/17/2019 AFB3CPH 64.4 07/17/2019 PO2ART 37.1 07/17/2019 RXC6BGQ 32.5 07/17/2019 GBG2QZE 33 07/18/2019 D1WABZPE 64.5 07/17/2019 FIO2 NOT REPORTED 07/18/2019 Lactic [...] M.D. Department of Internal Medicine/ Critical care [facility]) 07/20/2019, 9:54 AM Associated attestation - Martin Alvarez MD - 07/20/2019 4:32 PM EDT Attending Physician Statement I have discussed the case of Jonatan Olivarez, including pertinent history and exam findings with the resident/fellow/SENIOR LIBRARIAN/PA. I have seen and examined the patient and the sims elements of the encounter have been performed by me. I agree with the assessment, plan and orders as documented by the resident/fellow/SENIOR LIBRARIAN/PA With changes made to the note as [...] 5:03 PM EDT [facility] - Initial Consult Note COVID 19 [...] showed concern for viral pneumonia. Transferred to [facility] and developed respiratory failure requiring intubation COVID testing negative ID will sign off Infection Control Recommendations [place] Precautions Antimicrobial Stewardship Recommendations Discontinuation of therapy [...] Dr. Baeza INITIAL HISTORY: Patient presented to [facility] ER on 07-16 after a fall and [...] for viral pna She was transferred to [facility] for further care. Initially on arrival to [facility] pt was AA however she became lethargic [...] NL LV COPD (chronic obstructive pulmonary disease) ([facility]) Depression Diabetes mellitus ([facility]) Edema chevy legs feet H/O cardiac catheterization [...] History: Procedure Laterality Date AORTA SURGERY 05/2016 [facility], [place] CARDIAC CATHETERIZATION heart stent x3 CARDIAC CATHETERIZATION Left 02/25/2018 Right Ulnar/[facility]/ CARDIAC SURGERY CHOLECYSTECTOMY FEMORAL BYPASS HYSTERECTOMY VASCULAR [...] file Gets together: Not on file Attends gnosticism service: Not on file Active member of [...] infectious and noninfectious processes. PneInd Medical Decision Rhescq-Jjwvivkm-Zrpmf: Medical Decision Making-Other: Note: Labs, medications, radiologic studies were reviewed with personal review of films Moderate Large amounts of data were reviewed Discussed with nursing Staff, town planner Infection Control and Prevention measures reviewed [...] Patient's name: Jonatan Olivarez Patient's account/billing number: [id number] Patient's Date of : 1960 Age: 58 y.o. Date of Admission: 07/18/2019 1:26 AM Length of stay during current admission: 1 Primary Care Physician: Vahid Nagy APRN - STUDENT COUNSELLOR ICU Attending Physician: Dr. Alvarez Code Status: [...] List Diagnosis Date Noted Angina, class III ([facility]) 02/25/2018 Priority: High Diabetic ulcer of toe of left foot associated with type 2 diabetes mellitus, with fat layer exposed([facility]) 01/24/2017 Priority: High Class: Chronic CAD S/P percutaneous coronary angioplasty 08/30/2013 Priority: High Diabetic polyneuropathy associated with type 2 diabetes mellitus ([facility]) 01/24/2017 Priority: Medium Class: Chronic Ventral hernia 08/30/2013 Priority: Medium AMS (altered mental status) 07/18/2019 Acute on chronic respiratory failure with hypercapnia ([facility]) 07/18/2019 COVID-19 07/17/2019 Acute on chronic respiratory failure with hypoxemia ([facility]) 04/23/2019 Pneumonia due to infectious organism 04/23/2019 COPD, severity to be determined ([facility]) Diabetes mellitus ([facility]) Hypertension Community acquired bacterial pneumonia 04/21/2019 COPD exacerbation ([facility]) 06/06/2018 COPD with exacerbation ([facility]) 06/05/2018 Acute respiratory failure with hypoxia and hypercapnia ([facility]) 06/05/2018 Hx of blood clots CAD (coronary artery disease) Tobacco abuse counseling 05/27/2014 Tobacco abuse 05/27/2014 Atherosclerosis of artery of extremity with intermittent claudication ([facility]) 05/27/2014 Dizziness 05/27/2014 Intolerance of drug 05/27/2014 Atherosclerosis of both carotid arteries 05/27/2014 Hypothyroidism 05/27/2014 Abnormal nuclear stress test 01/22/2013 Smoking greater than 40 pack years 01/22/2013 Claudication in peripheral vascular disease ([facility]) 11/06/2012 Stable angina ([facility]) 11/06/2012 Additional assessment: COVID 19 Suspect Respiratory failure ES COPD DM II CAD PAD/PVD Neuropathy Macrolide and Cephalosporin allergy PLAN: WEAN PER PROTOCOL: [] No [] Yes [] N/A DISCONTINUE ANY LABS: [x] No [] Yes ICU PROPHYLAXIS: Stress ulcer: [] PPI Agent [x] J7Dacff [] Sucralfate [] Other: VTE: [] Enoxaparin [...] Lovenox 40 mg daily Austin Hogan M.D. Spinning Supervisor on COVID Service 07/19/2019, 10:03 AM Associated [...] floorfor unknown and was initially taken to [place] ER. She was hypoxemic on presentation, was initially placed on high flow and subsequently intubated. Her CT was reported to be concerning for viral pneumonia and. She was transferred to [facility] for further management. Her COVID-19 test [...] 45.4 POCPO2 127.5* 61.7* POCHCO3 36.1* 31.9* KSYY9QYD 99* 92* CBC: Recent Labs 07/17/19 1740 [...] this chart was generated using voice recognition Mobileum dictation software. Although every effort was made to ensure the accuracy of this automated practice performance manager, some errors in practice performance manager may have occurred. * Rahul Donohue RN [...] 4:07 PM EDT Pt sister Fay from [facility] called for update, update given. * [...] Assessment Type and Reason for Visit: Initial, Consult([facility] Vent Protocol) Nutrition Recommendations: -Continue NPO status [...] 5. Fluid Accumulation-Mild fluid accumulation, Generalized 6. Cra Officer Strength-Not measured Nutrition Risk Level: High Nutrient Needs: Estimated Daily Total Kcal: 20-25 ~> 5171-2706 kcals/d Estimated Daily Protein (g): 1.2-2.0 gm/kg [...] wt loss x 7 mo per EMR Hagan Body Wt: 105 lb (47.6 kg), % Hagan Body 165% adm/ideal BMI Classification: BMI 30.0 - 34.9 Obese Class I(32.3) Nutrition Interventions: Continue NPO(Start diet vs nutrition support as able ) Continued Inpatient Monitoring, Education Not Indicated Nutrition Evaluation: Evaluation: Goals set Goals: Start diet vs nutrition support within 24-72 hrs Monitoring: Nutrition Progression, I&O, Weight, Pertinent Labs, Monitor Bowel Function Contact Number: [phone] * Stacy Rivas RCP - 07/18/2019 3:17 [...] COREY Wang 3:17 AM * Zach Witt [facility] - 07/18/2019 2:14 AM EDT Pharmacy Note [...] of artery of extremity with intermittent claudication ([facility]) Dizziness Intolerance of drug Atherosclerosis of both [...] consult. Will continue to follow. Zach Witt [facility] 07/18/2019 2:13 AM documented in this encounter* [...] w color complete Josef Brooks MD [address] [place] [address] [facility] Echo [address] [place] [address] StatusReasonSpecialtyDiagnoses / ProceduresReferred By ContactReferred To ContactNot Required - RecondoCardiology / Stress Lab Diagnoses ASHD (arteriosclerotic heart disease) S/P angioplasty with stent Mixed hyperlipidemia Essential hypertension Tobacco abuse counseling Abdominal aortic aneurysm (AAA) without rupture (HCC) PVD (peripheral vascular disease) (HCC) Bilateral carotid artery disease, unspecified type (HCC) Lightheadedness Dizziness Procedures Stress test (Lexiscan) Josef Brooks MD [address] [place], [place] [id number] [facility] Stress Lab [address] [place] [address] StatusReasonSpecialtyDiagnoses / ProceduresReferred By ContactReferred To ContactOpenRadiology Diagnoses Spinal stenosis of lumbar region, unspecified whether neurogenic claudication present DDD (degenerative disc disease), lumbar Procedures MRI LUMBAR SPINE WO CONTRAST Deion Fritz, O AND M SUPERVISOR - [facility] [address] [place] [address] SpecialtyDiagnoses / ProceduresReferred By ContactReferred To ContactRadiology Diagnoses Right sided abdominal pain Procedures CT ABDOMEN PELVIS W IV CONTRAST Additional Contrast? Oral CT ABDOMEN PELVIS W IV CONTRAST Additional Contrast? Oral Osmar Rodriguez MD [address] [place] [address] [place] [address] Referral IDStatusReasonStart DateExpiration DateVisits RequestedVisits [id number]/[id number] / Procedures Referred By ContactReferred To ContactRadiology Diagnoses Chronic right hip pain Procedures MRI HIP RIGHT WO CONTRAST Osmar Rodriguez MD [address] [place] [address] [place] [address] Referral IDStatusReasonStart DateExpiration DateVisits RequestedVisits [id number]/19/[id number] / Procedures Referred By ContactReferred To ContactRadiology Diagnoses Recurrent abdominal hernia without obstruction or gangrene, unspecified hernia type Right lower quadrant abdominal mass Procedures CT ABDOMEN PELVIS W IV CONTRAST Additional Contrast? Oral Osmar Rodriguez MD [address] [facility] [address] [place] [address] Referral IDStatusReasonStart DateExpiration DateVisits RequestedVisits [id number]/20229/[id number] / Procedures Referred By ContactReferred To Contact Diagnoses Gastrointestinal hemorrhage, unspecified gastrointestinal hemorrhage type Gastric ulcer without hemorrhage or perforation, unspecified chronicity Procedures EGD Renuka Angeles MD [address] [facility] [place] [id number] Referral IDStatusReasonStart DateExpiration DateVisits RequestedVisits [id number] Discharge Instructions * Instructions* Chago Langston II, PA-C - 01/13/2019 Return for patient blood work in 2 days and then follow with your family practitioner * Attachments The following attachments cannot be sent through Care Everywhere. * Hyponatremia (Peruvian) * Lightheadedness or Faintness (Peruvian) documented in this encounter* Instructions* Mukesh Marley MD - 02/23/2019 You do not have a blood clot in your aorta please see your vascular doctor if you are having issues. documented in this encounter* Attachments The following attachments cannot be sent through Care Everywhere. * Contusion: Hand (Peruvian) documented in this encounter* Attachments The following attachments cannot be sent through Care Everywhere. * BPPV (Benign Paroxysmal Positional Vertigo) (Peruvian) documented in this encounter* Attachments The following attachments cannot be sent through Care Everywhere. * Back Pain (Peruvian) * Pneumonia (Peruvian) documented in this encounter* Instructions* Wesly Whitten [...] be sent through Care Everywhere. * Pneumonia (Peruvian) documented in this encounter* Attachments The following attachments cannot be sent through Care Everywhere. * Groin Strain (Peruvian) documented in this encounter* Instructions* Deion Loaiza [...] be sent through Care Everywhere. * Osteoarthritis (Peruvian) * UTI (Urinary Tract Infection): Female (Peruvian) documented in this encounter* Attachments The following attachments cannot be sent through Care Everywhere. 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 No Past Surgical History: Past Surgical History: Procedure Laterality Date AORTA SURGERY 05/2016 [facility] CARDIAC CATHETERIZATION heart stent x3 CARDIAC CATHETERIZATION Left 02/25/2018 Right Ulnar/[facility]/ CARDIAC SURGERY CHOLECYSTECTOMY FEMORAL BYPASS HYSTERECTOMY VASCULAR SURGERY blood clot removed after hysto Immunization History: Immunization History Administered Date(s) Administered Influenza Virus Vaccine 12/30/2013 Influenza, Quadv, 6 mo and older, IM, PF (Flulaval, Fluarix) 06/07/2018 Pneumococcal Conjugate 13-valent (Aedhnax80) 06/07/2018 Pneumococcal Polysaccharide (Qdczbofls07) 04/26/2019 Tdap (Boostrix, Adacel) 01/07/2017 Active Problems: Patient Active Problem List Diagnosis Code Claudication in peripheral vascular disease ([facility]) I73.9 Stable angina ([facility]) I20.8 Abnormal nuclear stress test R94.39 Smoking greater than 40 pack years F17.210 CAD S/P percutaneous coronary angioplasty I25.10, Z98.61 Ventral hernia K43.9 Tobacco abuse counseling Z71.6 Tobacco abuse Z72.0 Atherosclerosis of artery of extremity with intermittent claudication ([facility]) I70.219 Dizziness R42 Intolerance of drug Z78.9 Atherosclerosis of both carotid arteries I65.23 Hypothyroidism E03.9 Diabetic ulcer of toe of left foot associated with type 2 diabetes mellitus, with fat layer exposed([facility]) E11.621, L97.522 Diabetic polyneuropathy associated with type 2 diabetes mellitus ([facility]) E11.42 Angina, class III ([facility]) I20.9 COPD with exacerbation ([facility]) J44.1 Hx of blood clots Z86.718 CAD (coronary artery disease) I25.10 Acute respiratory failure with hypoxia and hypercapnia ([facility]) J96.01, J96.02 COPD exacerbation ([facility]) J44.1 Community acquired bacterial pneumonia J15.9 COPD (chronic obstructive pulmonary disease) ([facility]) J44.9 Diabetes mellitus ([facility]) E11.9 Hypertension I10 Acute on chronic respiratory failure with hypoxemia ([facility]) J96.21 Pneumonia due to infectious organism J18.9 AMS (altered mental status) R41.82 Acute on chronic respiratory failure with hypercapnia ([facility]) J96.22 E. coli UTI N39.0, B96.20 Unstable angina ([facility]) I20.0 Acute coronary syndrome ([facility]) I24.9 S/P cardiac cath Z98.890 S/P angioplasty [...] Test Resulted MRSA 07/06/13 07/06/13 Oliva Tristan, O AND M SUPERVISOR - STUDENT COUNSELLOR 03/18/20 Seth Prajapati RN 07/02/2013 wound--right groin [...] (76.3 kg) Mental Status: {IP PT MENTAL STATUS:58534} IV Access: {[facility] [place]:[id number]} Nursing Mobility/ADLs: Walking {CHP DME ADLs:545561426} Transfer {CHP DME ADLs:035309877} Bathing {CHP DME ADLs:883350558} Dressing {CHP DME ADLs:597622308} Toileting {CHP DME ADLs:776367932} Feeding {CHP DME ADLs:476161908} Oral Pathologist {CHP DME ADLs:338819729} Med Delivery { DUSTIN MED Delivery:220879215} Wound Care Documentation and Therapy: Wound 01/24/17 Toe (Comment which one) Left #2 left great toe (Active) Number of days: 1149 Elimination: Continence: Bowel: {YES / NO:} Bladder: {YES / NO:} Urinary Catheter: {Urinary Catheter:601691940} Colostomy/Ileostomy/Ileal Conduit: {YES / NO:} Date of Last BM: No intake or output data in the 24 hours ending 03/19/20 1159 No intake/output data recorded. Safety Concerns: { DUSTIN Safety Concerns:976099752} Impairments/Disabilities: { DUSTIN Impairments/Disabilities:009883506} Nutrition Therapy: Current Nutrition Therapy: { DUSTIN Diet List:937214842} Routes of Feeding: {[facility] DME Other Feedings:241442111} Liquids: {[facility] liquid thickness:91075} Daily Fluid Restriction: {CHP DME Yes amt example:253064222} Last Modified Barium Swallow with Video (Video Swallowing Test): {Done Not Done Date:} Treatments at the Time of Hospital Discharge: Respiratory Treatments: Oxygen Therapy: {Therapy; copd oxygen:92217} Ventilator: { CC Vent List:732101103} Rehab Therapies: {THERAPEUTIC INTERVENTION:3770113323} Weight Bearing Status/Restrictions: {[facility] Weight Bearin} Other Medical Equipment (for information only, NOT a DME order): {EQUIPMENT:101356414} Other Treatments: Patient's personal belongings (please select all that are sent with patient): {[facility] DME Belongings:020495621} RN SIGNATURE: {Esignature:345843372} CASE MANAGEMENT/SOCIAL WORK SECTION Inpatient Status Date: Readmission Risk Assessment Score: Readmission Risk Risk of Unplanned Readmission: 18 Discharging to Facility/ Agency Name: Address: Phone: Fax: Dialysis Facility (if applicable) Name: Address: Dialysis Schedule: Phone: Fax: Machine Shop Apprentice/Bone Drier signature: {Esignature:569741501} PHYSICIAN SECTION Prognosis: {Prognosis:5997635761} Condition at Discharge: {MH Patient Condition:263122709} Rehab Potential (if transferring to Rehab): {Prognosis:8256189244} Recommended Labs or Other Treatments After Discharge: Physician Certification: I certify the above information and transfer of Jonatan Olivarez is necessary for the continuing treatment of the diagnosis listed and that she requires {Admit to Appropriate Level of Care:23616} for {GREATER/LESS:926325413} 30 days. Update Admission H&P: {CHP DME Changes in HandP:466676620} PHYSICIAN SIGNATURE: {Esignature:966139598} * Additional Instructions* Kenneth Canales MD - 03/19/2020 Follow up in the Cardiology office in 2 weeks. Call to make an appointment. Following are numbers for TCC ([place] Supervisor Typesetting) [place] Office [place] Office [place] Office [place] Office [place] Office Follow up with your PCP in 1-2 weeks. Do not miss any doses of Aspirin and Plavix. documented in this encounter* Instructions* Fredy Billingsley APRN - FABIENNE - 03/21/2020 Return to the emergency department for worsening symptoms. * Attachments The following attachments cannot be sent through Care Everywhere. * Hip Pain (Peruvian) documented in this encounter* Instructions* Marita Munoz [...] Where can you learn more? Go to [email or web address] and sign in to your [employer] account. Enter V314 in the Search Health Information box to learn more about Learning About COPD. If you do not have an account, please click on the Sign Up Now link. Current as of: September 07, 2018Content Version: 12.4 4974-1272 [employer]. Care instructions adapted under license by [employer]. If you have questions about a medical condition or this instruction, always ask your healthcare professional. [employer] disclaims any warranty or liability for your use of this information. * Attachments The following attachments cannot be sent through Care Everywhere. * lisinopril (Peruvian) * metoprolol (oral/injection) (Peruvian) * COPD (Peruvian) documented in this encounter* Instructions* Corrine Jensen [...] taking more than one drug. This includes ouep-pzb-utroiie medicine and herb or dietary supplements. ? [...] this encounter Hospital Course * Oliva Tristan, O AND M SUPERVISOR - STUDENT COUNSELLOR - 03/18/2020 9:30 AM EST Discharge Summary [...] therefore she was taken directly to the [facility] yesterday with Dr. Stephens. She was found to have severe single vessel CAD inthe RCA. She was admitted yesterday and will be transferred to [facility] this morning for Heart Cath and Stent [...] Problem List Diagnosis Date Noted Unstable angina ([facility]) 03/17/2020 Priority: High Angina, class III ([facility]) 02/25/2018 Priority: High Diabetic ulcer of toe of left foot associated with type 2 diabetes mellitus, with fat layer exposed([facility]) 01/24/2017 Priority: High Class: Chronic CAD S/P percutaneous coronary angioplasty 08/30/2013 Priority: High Diabetic polyneuropathy associated with type 2 diabetes mellitus ([facility]) 01/24/2017 Priority: Medium Class: Chronic Tobacco abuse 05/27/2014 Priority: Medium Ventral hernia 08/30/2013 Priority: Medium Acute coronary syndrome ([facility]) 03/17/2020 E. coli UTI 07/20/2019 AMS (altered mental status) 07/18/2019 Acute on chronic respiratory failure with hypercapnia ([facility]) 07/18/2019 Acute on chronic respiratory failure with hypoxemia ([facility]) 04/23/2019 Pneumonia due to infectious organism 04/23/2019 COPD (chronic obstructive pulmonary disease) ([facility]) Diabetes mellitus ([facility]) Hypertension Community acquired bacterial pneumonia 04/21/2019 COPD exacerbation ([facility]) 06/06/2018 COPD with exacerbation ([facility]) 06/05/2018 Acute respiratory failure with hypoxia and hypercapnia ([facility]) 06/05/2018 Hx of blood clots CAD (coronary artery disease) Tobacco abuse counseling 05/27/2014 Atherosclerosis of artery of extremity with intermittent claudication (HCC) 05/27/2014 Dizziness 05/27/2014 Intolerance of drug 05/27/2014 Atherosclerosis of both carotid arteries 05/27/2014 Hypothyroidism 05/27/2014 Abnormal nuclear stress test 01/22/2013 Smoking greater than 40 pack years 01/22/2013 Claudication in peripheral vascular disease (HCC) 11/06/2012 Stable angina ([facility]) 11/06/2012 Discharge Medications: Sher Jonatan Phillips Home Medication Instructions LISBETH:[id number] Printed on:03/18/20 9526 Medication Information albuterol (PROVENTIL) (2.5 MG/3ML) 0.083% [...] three times a day Blood Pressure Monitoring [facility] To monitor blood pressure as needed. Please order device that is covered by insurance. clopidogrel (PLAVIX) 75 MG tablet Take 1 tablet by mouth daily glycopyrrolate-formoterol (BEVESPI AEROSPHERE) 9-4.8 MCG/ACT AERO Inhale 2 puffs into the lungs 2 times daily ibuprofen (ADVIL;MOTRIN) 800 MG tablet Take 1 tablet by mouth every 8 hours as needed for Pain Incontinence Supply Disposable [facility] Incontinence pads 150 per month. Please order [...] none needed Other: None Disposition: Transfer to [facility] for tertiary care Follow up: Patient will be followed by HILDA Land CNP in 1-2 weeks CORE MEASURES on Discharge (if applicable) FAUSTO/ARB in CHF: Yes Statin in AK: NA ASA in AK: NA Statin in CVA: NA Antiplatelet in CVA: NA Total time spent on discharge services: 35 minutes Including the following activities: Evaluation and Management of patient Discussion with patient and/or surrogate about current care plan Coordination with Case Management and/or Bone Drier Coordination of care with Consultants (if applicable) Coordination of care with Receiving Facility Physician (if applicable) Completion of DME forms (if applicable) Preparation of Discharge Summary Preparation of Medication Reconciliation Preparation of Discharge Prescriptions Signed: Oliva Tristan APRN, SENIOR LIBRARIAN-C 03/18/2020, 9:32 AM Associated attestation - Caren Mera MD - 03/18/2020 9:51 AM EST I personally evaluated and examined the patient face to face in conjunction with the APC and agree with the management and disposition of the patient. My sims findings are: Patient ID: Jonatan Olivarez [id number] Admission date: 03/17/2020 Discharge date: 03/18/2020 Admitting Physician: Caren Mera MD Primary Care Physician: HILDA Land CNP Primary Discharge Diagnoses: Patient Active Problem List Diagnosis Date Noted Unstable angina (HCC) 03/17/2020 Priority: High Angina, class III ([facility]) 02/25/2018 Priority: High Diabetic ulcer of toe of left foot associated with type 2 diabetes mellitus, with fat layer exposed([facility]) 01/24/2017 Priority: High Class: Chronic CAD S/P [...] organism 04/23/2019 COPD (chronic obstructive pulmonary disease) ([facility]) Diabetes mellitus ([facility]) Hypertension Community acquired bacterial pneumonia 04/21/2019 COPD exacerbation ([facility]) 06/06/2018 COPD with exacerbation ([facility]) 06/05/2018 Acute respiratory failure with hypoxia and hypercapnia ([facility]) 06/05/2018 Hx of blood clots CAD (coronary artery disease) Tobacco abuse counseling 05/27/2014 Tobacco abuse 05/27/2014 Atherosclerosis of artery of extremity with intermittent claudication ([facility]) 05/27/2014 Dizziness 05/27/2014 Intolerance of drug 05/27/2014 Atherosclerosis of both carotid arteries 05/27/2014 Hypothyroidism 05/27/2014 Abnormal nuclear stress test 01/22/2013 Smoking greater than 40 pack years 01/22/2013 Claudication in peripheral vascular disease ([facility]) 11/06/2012 Stable angina ([facility]) 11/06/2012 Additional Diagnoses: Diagnosis Date Asthma Back problem Bulging discs (2 or 3), 1 cracked & 1 blackened discs CAD (coronary artery disease) stents x 3; BMS to LAD 12/2010;SPARKLE to RCA 01/2011, NL LV COPD (chronic obstructive pulmonary disease) ([facility]) Depression Diabetes mellitus ([facility]) Edema chevy legs feet H/O cardiac catheterization 01/01/2011 H/O echocardiogram 09/03/2019 EF 65% evidence of mild grade I diastolic dysfunction seen Hernia of abdominal wall 2012 History of cardiac cath 03/17/2020 [facility] Michael/Dr. Stephens/Left Radial History of cardiovascular stress [...] ms QTc Calculation (Bazett) 396 ms P Fajardo 55 degrees R Fajardo 55 degrees T Fajardo 60 degrees Troponin Collection Time: 03/17/20 8:30 [...] Discharge Medications: Jonatan Olivarez Home Medication Instructions LISBETH:[id number] Printed on:03/18/20 0994 Medication Information albuterol (PROVENTIL) (2.5 MG/3ML) 0.083% [...] three times a day Blood Pressure Monitoring [facility] To monitor blood pressure as needed. Please order device that is covered by insurance. clopidogrel (PLAVIX) 75 MG tablet Take 1 tablet by mouth daily glycopyrrolate-formoterol (BEVESPI AEROSPHERE) 9-4.8 MCG/ACT AERO Inhale 2 puffs into the lungs 2 times daily ibuprofen (ADVIL;MOTRIN) 800 MG tablet Take 1 tablet by mouth every 8 hours as needed for Pain Incontinence Supply Disposable [facility] Incontinence pads 150 per month. Please order [...] DO - 03/19/2020 11:19 AM EST Eliseo Supervisor Typesetting Discharge Note Name: Jonatan Olivarez Date of : 1960 Social Security Number: [id number] Date of Admission: 03/18/2020 Date of Discharge: 03/19/2020 Admitting physician: Ema Miller MD Discharge Attending: Kenneth Canales MD Primary Care Physician: Vahid Nagy, O AND M SUPERVISOR - STUDENT COUNSELLOR Consultants: Cardiology Discharge to Home Condition at discharge: Stable HOSPITAL ADMISSION PROBLEM LIST: Patient Active Problem List Diagnosis Claudication in peripheral vascular disease (HCC) Stable angina ([facility]) Abnormal nuclear stress test Smoking greater than 40 pack years CAD S/P percutaneous coronary angioplasty Ventral hernia Tobacco abuse counseling Tobacco abuse Atherosclerosis of artery of extremity with intermittent claudication ([facility]) Dizziness Intolerance of drug Atherosclerosis of both carotid arteries Hypothyroidism Diabetic ulcer of toe of left foot associated with type 2 diabetes mellitus, with fat layer exposed([facility]) Diabetic polyneuropathy associated with type 2 diabetes mellitus ([facility]) Angina, class III ([facility]) COPD with exacerbation ([facility]) Hx of blood clots CAD (coronary artery disease) Acute respiratory failure with hypoxia and hypercapnia ([facility]) COPD exacerbation ([facility]) Community acquired bacterial pneumonia COPD (chronic obstructive pulmonary disease) ([facility]) Diabetes mellitus ([facility]) Hypertension Acute on chronic respiratory failure with hypoxemia ([facility]) Pneumonia due to infectious organism AMS (altered mental status) Acute on chronic respiratory failure with hypercapnia ([facility]) E. coli UTI Unstable angina ([facility]) Acute coronary syndrome ([facility]) S/P cardiac cath S/P angioplasty with stent [...] cardiology 4 weeks Follow up with other network relations consultant physicians at their directions. Discharge Medications: Jonatan Olivarez Home Medication Instructions LISBETH:[id number] Printed on:03/19/20 4999 Medication Information albuterol (PROVENTIL) (2.5 MG/3ML) 0.083% [...] three times a day Blood Pressure Monitoring [facility] To monitor blood pressure as needed. Please order device that is covered by insurance. clopidogrel (PLAVIX) 75 MG tablet Take 1 tablet by mouth daily glycopyrrolate-formoterol (BEVESPI AEROSPHERE) 9-4.8 MCG/ACT AERO Inhale 2 puffs into the lungs 2 times daily ibuprofen (ADVIL;MOTRIN) 800 MG tablet Take 1 tablet by mouth every 8 hours as needed for Pain Incontinence Supply Disposable [facility] Incontinence pads 150 per month. Please order [...] discharge instructions reviewed with patient and nursing. [place] Supervisor Typesetting Attending Cyber Transport Systems Specialist Addendum: I have reviewed and performed the [...] questions. Joseph Hope DO, FACAlan, KESHA JUDD [place] Supervisor Typesetting [facility] documented in this encounter Chief Complaint and [...] DATE CREATED AUTHOR AUTHOR'S ORGANIZ ATION 03/05/2019 [facility] DATE CREATED AUTHOR AUTHOR'S ORGANIZ ATION 12/29/2019 [facility] DATE CREATED AUTHOR AUTHOR'S ORGANIZ ATION 10/07/2021 [facility] DATE CREATED AUTHOR AUTHOR'S ORGANIZ ATION 12/27/2021 [facility] DATE CREATED AUTHOR AUTHOR'S ORGANIZ ATION 06/09/2022 [facility] DATE CREATED AUTHOR AUTHOR'S ORGANIZ ATION 11/24/2023 [facility] DATE CREATED AUTHOR AUTHOR'S ORGANIZ ATION 02/02/2024 [facility] DATE CREATED AUTHOR AUTHOR'S ORGANIZ ATION 11/21/2024 [facility] DATE CREATED AUTHOR AUTHOR'S ORGANIZ ATION 01/08/2025 [facility] DATE CREATED AUTHOR AUTHOR'S ORGANIZ ATION 01/15/2025 [facility] Evaluations & Outcomes (unre cognized section and [...] ed section and content) ReasonCommentsFallapprox 2 hrs DIRECTOR PUBLIC POLICY d/t legs giving out -fell on left side onto pavement- denies head injury or LOCNeck PainArm PainleftBack PainlowerHeadache ReasonCommentsAbdominal PainPatient had lumbar mri today, [facility] inform [facility] [...] doppler w color complete Josef Brooks MD [address] [place] [address] [place] [address] [facility] Echo [address] [place] [address] StatusReasonSpecialtyDiagnoses / ProceduresReferred By ContactReferred To ContactNot Required - RecondoCardiology / Stress Lab Diagnoses ASHD (arteriosclerotic heart disease) S/P angioplasty with stent Mixed hyperlipidemia Essential hypertension Tobacco abuse counseling Abdominal aortic aneurysm (AAA) without rupture (HCC) PVD (peripheral vascular disease) (HCC) Bilateral carotid artery disease, unspecified type (HCC) Lightheadedness Dizziness Procedures Stress test (Lexiscan) Josef Brooks MD [address] [place] [address] [place] [address] [facility] Stress Lab [address] [place] [address] StatusReasonSpecialtyDiagnoses / ProceduresReferred By ContactReferred To ContactAuthorizedCardiology Diagnoses ASHD (arteriosclerotic heart disease) S/P angioplasty with stent Mixed hyperlipidemia Essential hypertension Tobacco abuse counseling Bilateral carotid artery disease, unspecified type (HCC) PVD (peripheral vascular disease) (HCC) Abdominal aortic aneurysm (AAA) without rupture (HCC) SOB (shortness of breath) Procedures Referral to Cardiac Cath [place] CATH PLMT L HRT & ARTS W/NJX & ANGIO IMG S&I Josef Brooks MD [address] [place] [address] [place] [address] ReasonCommentsBack PainLumbar, chronic, worse since this AM. [...] HC L HEART W LV & CORONARY [facility] ReasonCommentsAbdominal PainRLQ pain, ongoing for 4 weeks. [...] S/P cardiac cath S/P angioplasty with stent bed laborer Procedures DIAGNOSTIC CARDIAC HEARING SCREEN COORDINATOR PROCEDURE Ema Miller MD [address] [address] [facility] ReasonCommentsHip Painpt states onset 2 days ago, no known injury.Otherpt states she had one heart stent placed on Saturday at [facility]. Pt states I have been feeling funny ReasonCommentsHip Painfell 2 days ago on rt hip C/O pain in rt hip and rt posterior back. Denies LOCStatusReasonSpecialtyDiagnoses / Procedures Referred By ContactReferred To ContactClosedRadiology Diagnoses Spinal stenosis, lumbar region without neurogenic claudication Other intervertebral disc degeneration, lumbar region Spinal stenosis, lumbar region without neurogenic claudication Procedures HC MRI-SPINE LUMBAR WO CONTRAST Deion Fritz, O AND M SUPERVISOR - STUDENT COUNSELLOR [address] [place] [address] [facility] [address] [place] [address] StatusReasonSpecialtyDiagnoses / ProceduresReferred By ContactReferred To Contact Diagnoses COVID-19 COVID-19 acute resp failure with hypoxemia Chago Boyd DO [address] [facility] [address] [place] [address] [facility] StatusReasonSpecialtyDiagnoses / ProceduresReferred By ContactReferred To ContactAuthorizedCardiology / IP Unit Diagnoses Abnormal stress test CAD S/P percutaneous coronary angioplasty Essential hypertension Mixed hyperlipidemia Tobacco abuse counseling PVD (peripheral vascular disease) (HCC) Bilateral carotid artery disease, unspecified type (HCC) Procedures Referral to Cardiac Cath [place] CATH PLMT L HRT & ARTS W/NJX & ANGIO IMG S&I Josef Brooks MD [address] [place] [address] [place] [address] [facility] [address] [place] [address] ReasonCommentsGroin Painpt states right sided, onset for a monthReasonComments FallOnset DIRECTOR PUBLIC POLICY. Pt fell to floor in bedroom after [...] Additional Contrast? Oral Osmar Rodriguez MD [address] [facility] [address] [place] [address] Referral IDStatusReasonStart DateExpiration DateVisits RequestedVisits [id number] 2 days ago. C/o left shoulder bilateral knee painReasonCommentsCoughOnset 1 week ago, productive. Pt saw PCP 5 days ago and was ordered to have a chest Xray, but did not yet.StatusReasonSpecialtyDiagnoses / ProceduresReferred By ContactReferred To Contact Diagnoses Community acquired bacterial pneumonia Gordo De Santiago MD [address] [place] [address], [place] [address] [facility] SpecialtyDiagnoses / ProceduresReferred By ContactReferred To ContactRadiology Diagnoses Chronic right hip pain Procedures MRI HIP RIGHT WO CONTRAST Osmar Rodriguez MD [address] [place] [address] [address] [place] [address] Referral IDStatusReasonStart DateExpiration DateVisits RequestedVisits [id number] / Procedures Referred By ContactReferred To ContactRadiology Diagnoses Recurrent abdominal hernia without obstruction or gangrene, unspecified hernia type Right lower quadrant abdominal mass Procedures CT ABDOMEN PELVIS W IV CONTRAST Additional Contrast? Oral Osmar Rodriguez MD [address] [place] [address] [address] [place] [address] Referral IDStatusReasonStart DateExpiration DateVisits RequestedVisits [id number] MassComplains of left abd mass/painReasonCommentsFallPatient fell on [...] Augmentin. Pt administered 50 mcg of Fentanyl DIRECTOR PUBLIC POLICY.SpecialtyDiagnoses / ProceduresReferred By ContactReferred To Contact Diagnoses Unable to care for self Osmar Rodriguez MD [address] [facility] [place] [address] Phone: tel: fax: [facility] [address] [place] [address] Referral IDStatusReasonSthampton DateExpiration DateVisits RequestedVisits [id number] PainRight hip pain ongoing the past few [...] cystitis without hematuria Nat Reynolds MD [address] [facility] [address] Phone: tel: fax: Referral IDStatusReasonEtna DateExpiration DateVisits RequestedVisits [id number] Medical History (unrecognize d section and content) Description Patient gave verbal consent for [facility] 07/09/2019 History of hypertension 02/19/2019 A recent [...] mouth 2 times daily as needed for Yxkufwsvjhbe58/19/2025 ferrous sulfate (IRON 325) 325 (65 Fe) [...] Administer over 1 Hours, ONCE, On 12/04/20 [id number], For 1 dose * 1700 (New Bag [...] - Provider: Erika Ramesh RN) Medication Order// [id number] (NEOSPORIN) 400-5-5000 ointment Starting on Jenn 01/12/21 [...] dose * 0146 (Given - Provider: Josse Hyanes, DARI) ondansetron (ZOFRAN) injection 4 mg (COMPLETED) [...] to sleep) * 0948 (Given - Provider: Darlnig Welsh RCP) * 1516 (Given - Provider: [...] sodium chloride 0.9 % 50 mL IVPB (Nzxc5Qjm)(Linked Group 1) 3,375 mg, IntraVENous, at 12.5 mL/hr, Administer over 240 Minutes, EVERY 8 HOURS, First dose on Sat08/06/24 at 2200, For 7 days, Use 20mm (Blue) Qbjx7Vmm Adapter Preparation instructions: Attach medication vial to one 20mm (Blue) Fpcl1Pym adapter. Rai fluid bag with adapter, mix, and administer per order. * 0315 (Stopped - Provider: Ly Constantino RN) * 0515 (New Bag - Provider: Ly Constantino RN) * 0940 (Stopped - Provider: Lucille Mistry) * 1334 (New Bag - Provider: Lucille Mistry) * 1823 (Stopped - Provider: Jocelyn Yarbrough [...] or Central Line = 20 mL/lumen * 0903 (Given - Provider: Demetria Stout RN) zolpidem (AMBIEN) tablet 10 mg 10 mg, Oral, NIGHTLY PRN, Starting on Jenn 08/06/24 at 1449, Until Discontinued, Sleep Order Group 1: piperacillin-tazobactam (ZOSYN) 4,500 mg in sodium chloride 0.9 % 100 mL IVPB (Cfyl4Snu) (COMPLETED) 4,500 mg, IntraVENous, at 200 mL/hr, Administer over 30 Minutes, ONCE, On Jenn 08/06/24 at 1530, For 1dose, Use 20mm (Blue) Jpcd7Atd Adapter Preparation instructions: Attach medication vial to one 20mm(Blue) Reub1Flx adapter. Rai fluid bag with adapter, mix, and administer per order. Followed by piperacillin-tazobactam (ZOSYN) 3,375 mg in sodium chloride 0.9 % 50 mL IVPB (Ixwe2Gbe)Jump to med 3,375 mg, IntraVENous, at 12.5 mL/hr, Administer over 240 Minutes, EVERY 8 HOURS, First dose on Thu08/06/24 at 2200, For 7 days, Use 20mm (Blue) [id number] Adapter Preparation instructions: Attach medication vial to one 20mm (Blue) [id number] adapter. Rai fluid bag with adapter, mix, [...] Claudio RN) * 2020 (Given - Provider: aYnira Aguirre RN) * 0843 (Given - Provider: [...] Claudio RN) * 0843 (Given - Provider: Cnydee Claudio, DARI) * 0836 (Given - Provider: [...] * 0850 (Not Given - Provider: Cyndee Claduio RN - Reason: Other) * 2000 (Given [...] * 2200 (Due - Provider: Artur Cordoba [facility]) methylPREDNISolone sod suc(PF) (Solu-MEDROL) injection 125 mg [...] Indication: GERD * 0620 (Given - Provider: Anushka Zimmerman RN) * 1523 (Given - Provider: [...] * 0804 (Given - Provider: Mike Pandya) potassium chloride (KAYCIEL) 20 mEq/15 mL solution [...] ProviderActiveStart: January 20, 2024 Ariana Abrams , SUPERVISOR QUILTING-BCOther ProviderActiveStart: January 20, 2024 Ziggy Barraza MDAttending Provider, Other ProviderActiveStart: January 20, 2024 Luis Fernando Strauss MDOther ProviderActiveStart: January 20, 2024 Asia Guzman LPNOt ProviderActiveStart: January 20, 2024 Americo Gomez MDOther ProviderActiveStart: January 20, 2024 Michelle Joyce SENIOR LIBRARIAN-COther ProviderActiveStart: January 20, 2024 Bjorn Ramsey MDOther [...] ProviderActiveStart: January 20, 2024 Artur Guo , [facility] Provider, Other ProviderActiveStart: January 20, 2024 Team MemberRelationshipSpecialtyStart DateEnd Date Osmar Rodriguez MD [address] [place] [address] [address] [place] [address] PCP - GeneralFamily Pnkugikr03/30/21Team MemberRelationshipSpecialtyStart Date End Date Osmar Rodriguez MD [address] [place] [address] [address] [place] [address] PCP - GeneralFamily Xidgreec08/30/21Team MemberRelationshipSpecialtyStart Date End Date Osmar Rodriguez MD [address] [place] [address] [address] [place] [address] PCP - GeneralFamily Feosqxeq08/30/21Team MemberRelationshipSpecialtyStart Date End Date Osmar Rodriguez MD [address] [place] [address] [address] [place] [address] PCP - GeneralFamily Liobpmpm56/30/21Team MemberRelationshipSpecialtyStart Date End Date Vahid Nagy, STUDENT COUNSELLOR [address] [place] [address] PCP - GeneralCertified Nurse Covyugulcwvy16/27/19Team MemberRelationship SpecialtyStart DateEnd Date Osmar Rodriguez MD [address] [place] [address] [address] [place] [address] PCP - GeneralFamily Rhfcnuyk13/30/21Team MemberRelationshipSpecialtyStart Date End Date Osmar Rodriguez MD [address] [place] [address] [address] [place] [address] PCP - GeneralFamily Axneoihu51/30/21Team MemberRelationshipSpecialtyStart Date End Date Osmar Rodriguez MD [address] [place] [address] [address] PCP - GeneralFamily Ibpmqlri12/30/21Team MemberRelationshipSpecialtyStart Date End Date Vahid Nagy, STUDENT COUNSELLOR [address] [place] [address] PCP - GeneralCertified Nurse Mmnsnofudvsa01/27/19Te MemberRelationship SpecialtyStart DateEnd Date Osamr Rodriguez MD [address] [place] [address] [address] PCP - GeneralFamily Ybnwiqtd54/30/21Te MemberRelationshipSpecialtyStart Date End Date Osmar Rodriguez MD [address] [place] [address] [place] [id number] PCP - GeneralFamily Kpkxarxh47/30/21Team MemberRelationshipSpecialtyStart Date End Date Osmar Rodriguez MD [address] [place] [address] [address] PCP - GeneralFamily Qqpdujvp85/30/21Team MemberRelationshipSpecialtyStart Date End Date Osmar Rodriguez MD [address] [place] [address] [address] PCP - GeneralFamily Earzghzo63/30/21Team MemberRelationshipSpecialtyStart Date End Date Osmar Rodriguez MD [address] [place] [address] [address] PCP - GeneralFamily Idfftofx63/30/21 Team Status: Active Member Role Status Dates Carlo Grimaldo DO Emergency Provider Active Sta rt: January 19, 2024 NON STAFFPrimary Care ProviderActiveStart: January 19, 2024 Matty Ocampo Provider, Attending ProviderActiveStart: January 19, 2024 Team MemberRelationshipSpecialtyStart DateEnd Date Osmar Rodriguez MD [address] [place] [address] [address] [place] [address] PCP - GeneralFamily Isetdutc48/7/24Team MemberRelationshipSpecialtyStart DateEnd Date Osmar Rodriguez MD [address] [place] [address] [address] [place] [address] PCP - GeneralFamily Xgzhlway31/7/24Team MemberRelationshipSpecialtyStart DateEnd Date Osmar Rodriguez MD [address] [place] [address] [address] [place] [address] PCP - GeneralFamily Xopiqots98/7/24Team MemberRelationshipSpecialtyStart DateEnd Date Osmar Rodriguez MD [address] [place] [address] [address] [place] [address] PCP - GeneralFamily Eylynxac84/7/24Team MemberRelationshipSpecialtyStart DateEnd Date Osmar Rodriguez MD [address] [place] [address] [address] [place] [address] PCP - GeneralFamily Xonfigmt92/7/24Team MemberRelationshipSpecialtyStart DateEnd Date Osmra Rodriguez MD [address] [place] [address] [address] [place] [address] PCP - GeneralFamily Xhuvvjph00/7/24Team MemberRelationshipSpecialtyStart DateEnd Date Osmar Rodriguez MD [address] [place] [address] [address] [place] [address] PCP - GeneralFamily Mdtkmioj07/30/21Team MemberRelationshipSpecialtyStart Date End Date Osmar Rodriguez MD [address] [place] [address] [facility] [address] [place] [address] PCP - GeneralFamily Roibcstw55/30/21Team MemberRelationshipSpecialtyStart Date End Date Osmar Rodriguez MD [address] [place] [address] [place] [address] PCP - GeneralFamily Pddiupld98/30/21Team MemberRelationshipSpecialtyStart Date End Date Osmar Rodriguez MD [address] [place] [address] [place] [address] PCP - GeneralFamily Gsawmxyw38/30/21Team MemberRelationshipSpecialtyStart Date End Date Osmar Rodriguez MD [address] [place] [address] [facility] [address] [place] [address] PCP - GeneralFamily Medicine12/07/24Team MemberRelationshipSpecialtyStart DateEnd Date Osmar Rodriguez MD [address] [place] [address] [place] [address], [place] [address] PCP - GeneralFamily Tpeqnxuq90/7/24Team MemberRelationshipSpecialtyStart DateEnd Date Osmar Rodriguez MD [address] [place] [address] [address] [place] [address] PCP - GeneralFamily Medicine12/07/24 Goals (unrecognized section [...] BE BASED ON THE PRIMARY CLINICAL RECORDS. [facility]. provides no warranty or guarantee of the accuracy or completeness of information in this document.
--- NOTE | 2025-02-16 08:28 | ED.GENADUL1 ---
HPI HPI - General Adult General Chief complaint: Back Pain/Injury Stated complaint: CONFUSION, WEAKNESS Time Seen by Provider: 02/16/25 02:58 Source: patient Mode of arrival: ambulance Limitations: altered mental status History of Present Illness HPI narrative: 64-year-old female presented to the emergency department and was initially seen by Dr. Huffman. Please see his full history and physical exam. Related Data Home Medications ?Medication ?Instructions ?Recorded ?Confirmed losartan 100 mg tablet 100 mg PO QDAY 09/24/22 02/16/25 methocarbamol 750 mg tablet 750 mg PO QID 09/24/22 02/16/25 gabapentin 800 mg tablet 800 mg PO TID 03/18/23 02/16/25 (Neurontin) levothyroxine 150 mcg tablet 150 mcg PO DAILY 03/18/23 02/16/25 (Synthroid) albuterol sulfate 90 mcg/actuation 2 puff inhalation QID PRN 07/17/23 02/16/25 aerosol inhaler shortness of breath or wheezing furosemide 20 mg tablet 20 mg PO DAILY 07/17/23 02/16/25 isosorbide mononitrate 30 mg 30 mg PO DAILY 07/17/23 07/17/23 tablet,extended release 24 hr metoprolol succinate 25 mg 25 mg PO DAILY 07/17/23 02/16/25 tablet,extended release 24 hr venlafaxine 75 mg capsule,extended 75 mg PO DAILY 07/17/23 07/17/23 release 24 hr zolpidem 10 mg tablet 5 mg PO QPM PRN sleep 07/17/23 02/16/25 albuterol sulfate 2.5 mg/3 mL 2.5 mg inhalation Q6H PRN 02/16/25 02/16/25 (0.083 %) solution for nebulization shortness of breath or wheezing amitriptyline 10 mg tablet 10 mg PO .QHS 02/16/25 02/16/25 amlodipine 10 mg tablet 10 mg PO DAILY 02/16/25 02/16/25 apixaban 5 mg tablet (Eliquis) 2.5 mg PO Q12H 02/16/25 02/16/25 ascorbic acid (vitamin C) 500 mg 500 mg PO BID 02/16/25 02/16/25 tablet aspirin 81 mg chewable tablet 1 tab PO DAILY 02/16/25 02/16/25 budesonide-formoterol HFA 160 2 puff inhalation Q12H 02/16/25 02/16/25 mcg-4.5 mcg/actuation aerosol inhaler (Symbicort) ergocalciferol (vitamin D2) 1,250 1,250 mcg PO QWEEK 02/16/25 02/16/25 mcg (50,000 unit) capsule hydroxyzine HCl 25 mg tablet 25 mg PO Q6H PRN anxiety 02/16/25 02/16/25 multivitamin with folic acid 400 1 tab PO DAILY 02/16/25 02/16/25 mcg tablet (Daily-Katja (with folic acid)) oxycodone-acetaminophen 7.5 mg-325 1 tab PO Q6H PRN pain 02/16/25 02/16/25 mg tablet pravastatin 40 mg tablet 40 mg PO .QHS 02/16/25 02/16/25 Previous Rx's ?Medication ?Instructions ?Recorded liothyronine 5 mcg tablet 10 mcg (2 x 5 mcg) PO ACB #60 tabs 03/20/23 liothyronine 5 mcg tablet (Cytomel) 10 mcg (2 x 5 mcg) PO DAILY #60 03/20/23 tabs meloxicam 7.5 mg tablet 7.5 mg PO DAILY PRN pain #20 tabs 02/15/25 Allergies Allergy/AdvReac Type Severity Reaction Status Date / Time codeine AdvReac Intermediate Verified 09/24/22 17:23 ceclor AdvReac Intermediate Uncoded 09/24/22 17:23 Opioid HPI Opioid Management Most Recent Opioid Data: Last Pain Scale 10 Today, 03:00 Last MAR Pain Assessment 02/15/25, 14:46 Ur Phencyclidine Scrn, (NEGATIVE) Negative Today, 03:26 [facility] Medical History (Updated 02/16/25 @ 06:40 by Anastacio Huffman MD) Acute exacerbation of chronic obstructive pulmonary disease ?J44.1 - Chronic obstructive pulmonary disease with (acute) exacerbation (ICD-10) Acute and chronic respiratory failure with hypoxia ?J96.21 - Acute and chronic respiratory failure with hypoxia (ICD-10) Acute exacerbation of CHF (congestive heart failure) ?I50.9 - Heart failure, unspecified (ICD-10) Smoker ?F17.200 - Nicotine dependence, unspecified, uncomplicated (ICD-10) Fall ?W19.XXXA - Unspecified fall, initial encounter (ICD-10) Oxygen dependent ?Z99.81 - Dependence on supplemental oxygen (ICD-10) CHF (congestive heart failure) ?I50.9 - Heart failure, unspecified (ICD-10) HTN (hypertension) ?I10 - Essential (primary) hypertension (ICD-10) Heart attack ?I21.9 - Acute myocardial infarction, unspecified (ICD-10) COPD (chronic obstructive pulmonary disease) ?J44.9 - Chronic obstructive pulmonary disease, unspecified (ICD-10) Surgical History Stented coronary artery ?Z95.5 - Presence of coronary angioplasty implant and graft (ICD-10) Social History Smoking status: Current every day smoker Little interest or pleasure in doing things: not at all Feeling down, depressed, or hopeless: not at all Exam Constitutional Vital Signs, click to edit/add: Last Vital Signs Temp 98 F 02/16/25 02:49 Pulse 90 02/16/25 02:49 Resp 16 02/16/25 02:49 BP 162/67 H 02/16/25 08:00 Pulse Ox 90 L 02/16/25 06:58 O2 Del Method Nasal Cannula 02/16/25 03:00 O2 Flow Rate 2 02/16/25 03:00 Course Vital Signs Vital signs: Vital Signs Temperature 98 F 02/16/25 02:49 Pulse Rate 90 02/16/25 02:49 Respiratory Rate 16 02/16/25 02:49 Blood Pressure 99/45 L 02/16/25 02:49 Pulse Oximetry 86 L 02/16/25 02:49 Oxygen Delivery Method Room Air 02/16/25 02:49 Temperature 98 F 02/16/25 02:49 Pulse Rate 90 02/16/25 02:49 Respiratory Rate 16 02/16/25 02:49 Blood Pressure 162/67 H 02/16/25 08:00 Pulse Oximetry 90 L 02/16/25 06:58 Oxygen Delivery Method Nasal Cannula 02/16/25 03:00 Oxygen Delivery Flow Rate 2 02/16/25 03:00 Medical Decision Making MDM Narrative Medical decision making narrative: CT brain per radiologist shows no acute findings. CT hip per radiologist shows no acute fracture. She has severe right hip arthrosis with moderate volume hip effusion. There is erosion of the femoral head and acetabulum and a chronic appearing fracture in the right acetabulum and a healing nondisplaced fracture in the right inferior pubic ramus. Findings discussed with Dr. Laguerre and the patient is being admitted for UTI. Lab Data Labs: Lab Results 02/16/25 02/16/25 Range/Units 03:18 03:26 WBC 18.0 H (4.0-11.0) 10^3/uL RBC 3.20 L (4.20-5.40) 10^6/uL Hgb 8.7 L (12.0-16.0) g/dL Hct 27.4 L (36.0-48.0) % MCV 85.6 (81.0-99.0) fL MCH 27.2 (26.7-34.0) pg MCHC 31.8 (29.9-35.2) g/dL RDW 20.6 H (11.0-15.0) % Plt Count 321 (150-450) 10^3/uL MPV 9.0 L (9.5-13.5) fL Seg Neuts % (Manual) 86.0 H (43.0-75.0) Lymphocytes % (Manual) 6.0 L (20.5-60.0) % Monocytes % (Manual) 8.0 (1.7-12.0) % Eosinophils % (Manual) 0.0 L (0.9-7.0) % Basophils % (Manual) 0.0 L (0.2-2.0) % Neutrophils # (Manual) 15.48 H (1.4-6.5) 10^3/uL Lymphocytes # (Manual) 1.08 L (1.20-3.80) 10^3/uL Monocytes # (Manual) 1.44 H (0.30-0.80) 10^3/uL Eosinophils # (Manual) 0.00 (0.00-0.70) 10^3/uL Basophils # (Manual) 0.00 (0.00-0.10) 10^3/uL Poikilocytosis 2+ Macrocytosis 1+ Stomatocytes 1+ Sodium 137 (136-145) mmol/L Potassium 3.4 L (3.5-5.1) mmol/L Chloride 101 (98-107) mmol/L Carbon Dioxide 27.6 (21.0-32.0) mmol/L Anion Gap 11.8 BUN 14.0 (7.0-18.0) mg/dL Creatinine 0.81 (0.55-1.02) mg/dL Est GFR ( Amer) >60 (>=60 mL/min/1.73m^2) Est GFR (Non-Af Amer) >60 (>=60 mL/min/1.73m^2) BUN/Creatinine Ratio 17.3 Glucose 171 H (74-106) mg/dL Lactate 1.6 (0.4-2.0) mmol/L Calcium 8.9 (8.5-10.1) mg/dL Urine Color Lt. yellow (YELLOW) Urine Clarity Clear (CLEAR) Urine pH 6.0 (5.0-9.0) Ur Specific [place] 1.010 (1.005-1.025) Urine Protein 30 A (NEG/TRACE) mg/dL Urine Glucose (UA) Negative (NEGATIVE) mg/dL Urine Ketones Negative (NEGATIVE) mg/dL Urine Occult Blood Negative (NEGATIVE) Urine Nitrite Negative (NEGATIVE) Urine Bilirubin Negative (NEGATIVE) Urine Urobilinogen 0.2 (0.2-1.0) EU/dL Ur Leukocyte Esterase Small A (NEGATIVE) Urine RBC None seen (0-2) #/HPF Urine WBC 10-20 A (NONE SEEN) #/HPF Ur Squamous Epith Cells Few A (NONE/RARE) #/LPF Urine Crystals None seen (None Seen) #/HPF Urine Bacteria Large A (NONE SEEN) #/HPF Urine Casts None seen (NONE SEEN) #/LPF Urine Mucus None seen (NONE SEEN) Ur Culture Indicated? [place] [place] Opiates Screen Negative (NEGATIVE) Ur Buprenorphine Scrn Negative (NEGATIVE) Ur Oxycodone Screen Positive A (NEGATIVE) Urine Methadone Screen Negative (NEGATIVE) Ur Barbiturates Screen Negative (NEGATIVE) U Tricyclic Antidepress Negative (NEGATIVE) Ur Phencyclidine Scrn Negative (NEGATIVE) Ur Amphetamines Screen Negative (NEGATIVE) U Methamphetamines Scrn Negative (NEGATIVE) U Benzodiazepines Scrn Negative (NEGATIVE) Urine Cocaine Screen Negative (NEGATIVE) U Cannabinoids Screen Negative (NEGATIVE) Imaging Data CT scan - head: Radiologist's impression: ITS Impressions Chest X-Ray 02/16/25 03:04 IMPRESSION: MINOR CHRONIC CHANGES. NO ACUTE FINDINGS Impression dictated by: Lindsey Menchaca M.D. 02/16/2025 7:35 AM Dictation Location: [place] [address] Electronically authenticated by: [id number] Y Date: 02/16/2025 07:35 CT brain: No acute intracranial abnormality CT hip: Negative for acute fracture, severe right hip arthrosis, moderate volume hip effusion, chronic appearing fracture in the superior medial wall of the right acetabulum and a healing inferior pubic ramus fracture Discharge Plan Discharge Chief Complaint: Back Pain/Injury Clinical Impression: Acute pain of right hip, Acute UTI, Alteration consciousness Patient Disposition: Admitted As Inpatient Time of Disposition Decision: 08:30 Condition: Fair
--- NOTE | 2025-02-16 09:23 | PHOTOS ---
right lateral foot
--- NOTE | 2025-02-16 09:24 | PHOTOS ---
left plantar heel
--- NOTE | 2025-02-16 09:25 | PHOTOS ---
left medial foot
--- OUTSIDE RECORDS SUMMARY | 2025-02-16 09:30 | XMS_ITS | CCD ---
Author Organization [facility] Care Team Providers Care Call Center Operator Name Role Phone Zach Grimaldo Unavailable Unavailable Roberto Carlos, Luke Unavailable Unavailable Roberto Carlos, Luke Unavailable Unavailable Angelita, Vahid Unavailable Unavailable Angelita, Vahid Unavailable Unavailable Angelita, Vahid Unavailable Unavailable Angelita, Vahid Unavailable Unavailable Angelita, Vahid Unavailable Unavailable Angelita, Vahid Unavailable Unavailable Angelita, Vahid Unavailable Unavailable Angelita, Vahid Unavailable Unavailable Ender Amin Unavailable [phone] Natalia Amin Primary Care Physician [phone] Angelita, Vahid Unavailable Unavailable Angelita, Vahid Primary Care Provider [phone] Angelita, Vahid M Primary Care Provider DEION FRITZ Attending Unavailable Angelita, Vahid M Primary Care Provider Angelita, Vahid Primary Care Provider Angelita ELECTRIC BLANKET 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, Vahid M Primary Care Provider Unavailable Primary Care Provider Unavailabl e Angelita ELECTRIC BLANKET 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, Vahid M Primary Care Provider Angelita 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, Vahid Unavailable Osmar Rodriguez MD Primary Care Provider Angelita 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, Vahid Primary Care Provider Angelita ELECTRIC BLANKET 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, Vahid M Primary Care Provider Angelita 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, Vahid Primary Care Provider [phone] DR ERMA GUERRERO Primary Care Unavailable AILYN, DR GORDO Saeed Admitting Unavailable AILYN, DR GORDO Saeed Consulting Unavailable DR GORDO ROBERTSON Attending Unavailable WILY FAJARDO Consulting Unavailable NIA GALLEGOS Consulting Unavailable TAWANNA VICENTE Consulting Unavailable Eber Mcnair Consulting Unavailable Osmar Rodriguez MD Primary Care Provider Angelita [facility], Vahid Primary Care Provider ANGELITA, VAHID Primary [...] Provider Osmar Rodriguez MD Primary Care Provider [phone] BRIANAMatilde MARIEE Admitting Unavailable JOI JACOBSEN Referring Unavailable [facility] Primary Care Unavailable WINDY KUMARI Consulting Unavail able ABRAHAM BELTRAN Attending Unavailable DO Carlo Grimaldo Emergency Provider [phone] NON STAFF Primary Care Provider UnavailMD Nabila [...] Other Provider MD Bjorn Ramsey Other Provider [phone] MD Artur uGo Other Provider Osmar Rodriguez MD Primary Care Provider [phone] GERBER BASHIR Attending Unavailable IACOB, OSMAR Primary [...] Attending Unavailable IACOB, OSMAR Primary Care Unavailable LIUS MANUEL ROBISON Attending Unavailable IACOB, OSMAR Primary [...] of OnsetReaction(s) Facility (20 sources)azithromycin; Translations: [azithromycin]Drug Fxsrfgr55-65-[address] [facility] Repository (20 sources)cefaclor; Translations: [cefaclor]Drug Xfdswdo83-39-3271[facility]cbyofdzs[facility] (20 sources)codeine; Translations: [Codeine]Drug Ieqpcfa50-80-4897Rvlvt (See Comments), [facility] ([facility])cyclobenzaprine; Translations: [cyclobenzaprine]Drug Allergy 45-[facility] (20 sources)simvastatin; Translations: [simvastatin]Drug Nfiyism08-98-[address] [facility] Repository (20 sources)-No Environmental Allergies; Translations: [-No Environmental Allergies]Allergy to substance (disorder)[facility] (13 sources)-No Known Food AllergiesAllergy to substance (disorder)[facility] (20 sources)Other; Translations: [Other]Allergy to substance (disorder)Lexiscan [facility] (20 sources)Metals; Translations: [Metals]Allergy to substance (disorder)Nickel [facility] comment on above:04/14/2015 - ar (20 sources)tiZANidine; Translations: [tizanidine][facility]rug [facility]Le[facility] (20 sources)Azithromycin; Translations: [azithromycin]Drug Rcwtbtf57-60-2225 [facility] (20 sources)Cefaclor; Translations: [cefaclor]Drug Fikddmg88-55-3995Jiumc, Other (See Comments)[facility] (4 sources)cyclobenzaprine; Translations: [cyclobenzaprine]Drug Allergylegs [facility] (20 sources)Simvastatin; Translations: [simvastatin]Drug Cihxvqk60-00-3899 Itching, Other (See Comments)[facility] (4 sources)tiZANidine; Translations: [tizanidine]Drug AllergyLegs [facility] (20 sources)Seasonal allergy; Translations: [Seasonal allergies]Allergy to olmegkaul67-35-7849[facility]ilnrmCard[facility] Work Phone: (20 sources)nickel sulfate; Translations: [Unknown]Drug Hczykmx56-01-9522Jwxp, Other (See Comments)[place] (20 sources)regadenoson; Translations: [REGADENOSON]Drug Pkvfkbz20-15-1883 [place] ([place] sources)cyclobenzaprineDrug Tjnnteo51-80-3293Ddzoe (See Comments), Agitation [facility] (14 sources)Seasonal allergyPropensity to adverse reactions to substance 51-49-4877[facility] Work Phone: (16 sources)Trazodone And NefazodonePropensity to adverse reactions to drug 34-15-3023PfoarXztmu Health (2 sources)IodidesPropensity to adverse reactions to pnqt43-04-1625UKN [facility] (1 source)CefaclorDrug Zcbkvdz72-45-7189Zny [facility] Repository (1 source)Iodine (And Iodine Containting Drugs)Drug allergy (disorder)10-21-2019 [facility] Repository (1 source)SimvastatinDrug Cxlhzfs65-68-9853Bgs [facility] Repository (8 sources)nickelDrug Aowxsxq99-52-5852DqzEzsppc Health System (9 sources)levoFLOXacin; Translations: [LEVOFLOXACIN]Drug Xlcfwjb85-19-4955 [facility] (3 sources)Environmental/SeasonalPropensity to adverse reactions to substance 51-89-9997Qxb [facility]Ohio[facility] Medications Current Medications MedicationDrug Class(es)DatesSig (Normalized)Sig (Original)*OXYGEN 1 Miscellaneous (20 sources)Start: 07-28-2018*OXYGEN 1 Miscellaneous 07/28/2018 Provider:*OXYGEN 1 Miscellaneous (1 source)Start: 07-28-2018*OXYGEN 1 Miscellaneous 07/28/2018 Provider: acetaminophen 325 mg oral tablet (13 sources)Start: 38-85-4544kffg 1 tablet by mouth every four hours as needed for pain and fever and tdqulsuc290 mg, oral, Every 4 hours PRN, mild pain - pain scale 1-3, temperature greater than 38 C, headaches, Temperature greater than 38.3 C, Starting on Sat12/30/24 at 2153, [Warning: Total Acetaminophen not to exceed more than 4 grams (4000 mg) in 24 hours]Start: 15-85-3691cpnyqbzatlrls (TYLENOL) tablet 650 mgStart: 79-16-4193ilzyidaxeomra (TYLENOL) tablet 650 mg Start: 07-21-2022 End: 70-25-9611bkzchyfoioldj (TYLENOL) tablet 650 mgStart: 04-97-9195fpke 650 mg by mouth every four hours as needed for pain, then take 4000 mg by mouth every twenty-four hours as needed for aykj472 mg, Oral, EVERY 4 HOURS PRN, Pain Mild (1-3), Fever, Fever >100.5 F (38 C), Starting Sat03/18/20 at 1350 Maximum dose of acetaminophen is 4000 mg from all sources in 24 hours. Recovery(Cath)Start: 18-81-9217qetmqioxydbmp (TYLENOL) tablet 650 mgStart: 03-17-2020 End: 09-64-2296uonwejbwwwfms (TYLENOL) tablet 1,000 mgStart: 07-18-2019 acetaminophen (TYLENOL) tablet 650 mgStart: 05-27-2019 End: 76-36-9142iprezvvqpfbme (TYLENOL) tablet 1,000 mgStart: 04-22-2019 End: 98-06-7865iueqgbafluxon (TYLENOL) tablet 1,000 mgStart: 02-23-2019 End: 70-29-2267tcbrknjewmrxq (TYLENOL) tablet 1,000 mgtake 2 tablets by mouth every six hours as needed for feveracetaminophen (TYLENOL) 325 mg tablet Take 2 tablets (650 mg total) by mouth every 6 (six) hours asneeded for fever. Active acetaminophen 325 mg / oxyCODONE hydrochloride 5 mg oral tablet (20 sources)Opioid AgonistStart: 12-21-2024 End: 45-23-2263xvju 1 tablet by mouth every six hours as needed for pain and pain and pain and painoxyCODONE-acetaminophen (Percocet) 5-325 MG tablet Indications: Pain Take 1 tablet by mouth every 6(six) hours if needed for severe pain or moderate pain 120 tablet 12/21/2024 01/20/2025 ActiveStart: 10-27-2024 End: 09-43-2557suaCENEKE-acetaminophen (PERCOCET) 7.5-325 MG per tablet Indications: Chronic [...] 120 tablet 10/27/2024 11/26/2024 ActiveStart: 09-02-2024 End: 53-48-8484uboBIWSHD-acetaminophen (PERCOCET) 7.5-325 MG per tablet Indications: Chronic [...] all sources in 24 hours.Start: 08-12-2024 End: 20-21-1968kjgw 1 tablet by mouth every twenty-four hours1 tablet, Oral, Once, 1 dose, On 08/12/24 at 1145, Maximum dose of acetaminophen is 4000 mg fromall sources in 24 hours.Start: tablet, Oral, EVERY 4 HOURS PRN, Starting on Jenn 08/06/24 at 2019, Until Discontinued, Pain Severe (7-10), Maximum dose of acetaminophen is 4000 mg from all sources in 24 hours.Start: 07-27-2024 End: 05-77-0726vbzr 1 tablet by mouth every six hours [...] 12 tablet 08/17/2024 08/20/2024 ActiveStart: 01-20-2024 End: 11-43-0264ujjo 2 tablets by mouth every six hoursOxycodone-Acetaminophen Discontinued 2 TAB PO Q6H January 20, 2024 12:00am January 23, 2024 3:47pm Start: 83-90-3559yneu 1 tablet by mouth every eight hoursOxycodone-Acetaminophen Active 1 TAB PO Every 8 hours January 19, 2024 12:00amStart: 07-10-2022 End: 04-42-0506aisPIBMEF-acetaminophen (PERCOCET) 5-325 MG per tablet Indications: Chronic right hip pain , Sacralpain , Lumbar back pain with radiculopathy affecting right lower extremity , Chronic left hip pain Take 1 tablet by mouth every 6 hours as needed for Pain for up to 7 days. Ok to Fill today. PDMP reviewed. Max Daily Amount: 4 tablets 28 tablet 0 08/13/2022 08/20/2022 ActiveStart: 34-41-2821koon 1 tablet by mouth every eight hours for painoxyCODONE-acetaminophen 5-325 MG per tablet take 1 tablet by mouth every 8 hours if needed for painfor up to 30 DAYS 0 04/14/2022 ActiveStart: 12-18-2021 End: 73-64-5546mxeq 1 tablet by mouth every eight hours [...] tablet 0 12/18/2021 01/17/2022 ActiveStart: 06-20-2021 End: 34-12-5073xztFWMLIH-acetaminophen (PERCOCET) 5-325 MG per tablet Indications: Chronic right hip pain , Lumbarback pain with radiculopathy affecting right lower extremity Take 1 tablet by mouth every 6 hours as needed for Pain for up to 7 days. Intended supply: 7 days. Take lowest dose possible to manage pain 28 tablet 0 06/20/2021 06/27/2021 ActiveStart: 04-06-2021 End: 40-33-3652cppQSZSBY-acetaminophen (PERCOCET) 5-325 MG per tablet Indications: Chronic right hip pain , Fall, initial encounter , Right hip pain Take 1 tablet by mouth every 6 hours as needed for Pain for up to7 days. Intended supply: 7 days. Take lowest dose possible to manage pain 28 tablet 0 04/06/2021 04/13/2021 ActiveStart: 40-15-9276wheXASTHI-acetaminophen (PERCOCET) 5-325 MG per tablet 1 tabletStart: 01-12-2021 End: 13-87-2097idvVDGOXV-acetaminophen (PERCOCET) 5-325 MG per tablet Indications: Multiple contusions Take 1 tablet by mouth every 6 hours as needed for Pain for up to 3 days. Intended supply: 3 days. Take lowest dose possible to manage pain 12 tablet 0 01/12/2021 01/15/2021 ActiveStart: 12-04-2020 End: 51-15-6161vsmXLWJOD-acetaminophen (PERCOCET) 5-325 MG per tablet Indications: Pelvic pain Take 1 tablet by mouth every 6 hours as needed for Pain for up to 3 days. Intended supply: 3 days. Take lowest dose possible to manage pain 12 tablet 0 12/04/2020 12/07/2020 ActiveStart: 37-20-1549qzxBNEYJX- acetaminophen (PERCOCET) tablet 5-325 mg (2 tablet STARTER PACK)Start: 04-05-2020 End: 24-36-7793xbud 1 tablet by mouth every six hours [...] tablet 0 04/05/2020 04/08/2020 ActiveStart: 03-21-2020 End: 34-06-5154iuhDECZFU-acetaminophen (PERCOCET) 5-325 MG per tablet 1 tablet Start: 02-12-2020 End: 89-39-0194qncc 1 tablet by mouth every four hours [...] tablet 0 02/12/2020 02/15/2020 ActiveStart: 10-06-2019 End: 06-98-2069bpea 1 tablet by mouth every six hours as needed for pain oxyCODONE-acetaminophen (PERCOCET) 5-325 MG per tablet Indications: Chronic bilateral low back painwith bilateral sciatica Take 1 tablet by mouth every 6 hours as needed for Pain for up to 3 days. 10 tablet 0 10/06/2019 10/09/2019 ActiveStart: 10-06-2019 End: 19-92-3656oedTXZJXH-acetaminophen (PERCOCET) 5-325 MG per tablet 1 tablet Start: 07-30-2019 End: 69-11-9646Bwlkobxu 5-325 MG Oral Tablet 09/09/2019 - 09/15/2019 Provider: Vahid Nagy CNPStart: 02-19-2019 End: 51-34-5450ikgAYNTFB-Acetaminophen 5-325 MG Oral Tablet 02/19/2019 - 03/12/2019 Provider: Vahid Nagy CNPStart: 01-13-2019 End: 80-60-9675wezHMUTVG-acetaminophen (PERCOCET) 5-325 MG per tablet 1 tablet Start: 66-90-0552eobFUAMSZ-Acetaminophen 7.5-325MG Oral Tablet 06/27/2018 Provider: Vahid Nagy CNPStart: 04-29-2018 End: 94-80-9175iehOTCSJQ-Acetaminophen 7.5-325MG Oral Tablet 05/30/2018 - 06/27/2018 Provider: Vahid Ngay CNPStart: 04-26-2018 End: 99-22-6015zqdKZKYYY-Acetaminophen 7.5-325 MG OR TABS 04/26/2018 - 04/26/2018 Provider: Parker ProviderStart: 44-72-0956fsfm 1 tablet by mouth every eight hours as needed for painoxycodone-acetaminophen 7.5-325 mg oral tablet 03/26/2018 take 1 tablet (7.5/325mg) by mouth every 8 hours as needed for severe chronic lumbar pain (M79.606/M54.16)Start: 03-26-2018 End: 81-61-5786yjmITYKZS-Acetaminophen 7.5-325 MG OR TABS 03/26/2018 - 03/26/2018 Provider:Start: 02-24-2018 End: 73-43-4634ckpIXTFRR-Acetaminophen 7.5-325 MG OR TABS 02/24/2018 - 02/24/2018 Provider:Start: 30-51-3013jsit 1 tablet by mouth every eight hours as needed for painoxycodone-acetaminophen 7.5-325 mg oral tablet 02/24/2018 take 1 tablet (7.5/325mg) by mouth every 8 hours as needed for severe chronic lumbar pain (M79.606/M54.16)Start: 01-20-2018 End: 51-16-4003bohDSVCSY-Acetaminophen 7.5-325 MG OR TABS 01/20/2018 - 01/20/2018 Provider:Start: 12-27-2017 End: 85-33-0343wwwCFDOND-Acetaminophen 5-325 MG OR TABS 12/27/2017 - 12/27/2017 Provider:Start: 86-83-3497xwet 1 tablet by mouth every eight hours as needed for painoxycodone-acetaminophen 5-325 mg oral tablet 12/27/2017 take 1 tablet by oral route every 8 hours asneeded for modertae to severe back pain for 30 day supply (dx M79.606, M54.16)Start: 11-26-2017 End: 11-77-8803nzoPVZNKS-Acetaminophen 5-325 MG OR TABS 11/26/2017 - 11/26/2017 Provider:Start: 09-35-4305chnd 1 tablet by mouth every eight hours as needed for painoxycodone-acetaminophen 5-325 mg oral tablet 11/26/2017 take 1 tablet by oral route every 8 hours asneeded for modertae to severe back pain for 30 day supply (dx M79.606, M54.16)Start: 11-04-2017 End: 99-07-1938nneULSTHW-Acetaminophen 5-325 MG OR TABS 11/04/2017 - 11/04/2017 Provider:Start: 10-22-2017 End: 15-87-1573ydaBJZZFR-Acetaminophen 5-325 MG OR TABS 10/22/2017 - 10/22/2017 Provider:Start: 86-84-6377rtsy 1 tablet by mouth every eight hours as needed for painoxycodone-acetaminophen 5-325 mg oral tablet 10/22/2017 take 1 tablet by oral route every 8 hours asneeded for modertae to severe back pain (dx M79.606, M54.16)Start: 04-14-2015 End: 57-78-3061fyiXMXKCV-Acetaminophen 7.5-325 MG OR TABS 04/14/2015 - 04/14/2015 Provider:Start: 04-14-2015 End: 25-67-3403fzkm 1 tablet by mouth every eight hours as neededoxycodone- acetaminophen 7.5-325 mg oral tablet 04/14/2015 12/14/2016 take 1 tablet by oral route every 8 hours as neededStart: 03-11-2015 End: 72-45-3020dxxLDTRIO-Acetaminophen 7.5-325 MG OR TABS 03/11/2015 - 03/11/2015 Provider:Start: 02-10-2015 End: 22-63-1237xtmTIFDGU-Acetaminophen 7.5-325 MG OR TABS 02/10/2015 - 02/10/2015 Provider: End: 46-39-5873ivgf 1 tablet by mouth every six hours [...] INPATIENT/ED BronchodilatorClinical Practice Guidelines? YesStart: 08-06-2024 End: 37-38-3727mppu 1 dose by inhalation four times daily1 Dose, Inhalation, 4 TIMES DAILY RESP, First dose on Jenn 08/06/24 at 1600, Until Discontinued, Initiate RT Bronchodilator Protocol: Yes - Inpatient ProtocolStart: 10-23-2022 ipratropium-albuteroL (DUONEB) 0.5 mg-3 mg(2.5 mg base)/3 mL nebulizer Indications: COPD exacerbation ([facility]) Inhale 3 mL by nebulization 3 (three) times a day as needed for wheezing or shortness of breath. 3 mL nebulization every 8 hours x7 days, then every 8 hours as needed for cough, shortnessof breath, and or wheezing 240 mL 2 10/23/2022 ActiveStart: 24-09-6925imjsxqvhxar- albuterol (DUONEB) nebulizer solution 1 ampuleStart: 10-06-2019 End: 92-17-4777cgufkndpvot-albuterol (DUONEB) nebulizer solution 1 ampuleStart: 07-18-2019 End: 05-59-9339zehhpydkqiz-albuterol (DUONEB) nebulizer solution 1 ampuleStart: 04-21-2019 End: 29-44-0597wbuyuiczlbq-albuterol (DUONEB) nebulizer solution 1 ampule albuterol sulfate HFA 108 (90 Base) MCG/ACT inhaler 2 puff (1 source)Start: 46-75-2571tesuhfwgz sulfate HFA 108 (90 Base) MCG/ACT inhaler 2 puff1 ml alirocumab 75 mg/ml auto-injector (12 sources)PCSK9 InhibitorStart: 86-23-1478gfviabqafp (PRALUENT) 75 MG/ML SOAJ injection pen Indications: Abnormal stress test , CAD S/P percutaneous coronary angioplasty , Essential hypertension , Mixed hyperlipidemia , Tobacco abuse counseling , PVD (peripheral vascular disease) ([facility]) , Bilateral carotid artery disease, unspecified type ([facility]) Inject 1 mL into the skin every 14 days 1.96 mL 3 02/01/2020 Activealuminum hydroxide 40 mg/ml / magnesium hydroxide 40 mg/ml / simethicone 4 mg/ml oral suspension (1 source)Start: 58-95-2736cfth 30 mL by mouth four times daily at bedtime as jtyiyo33 mL, oral, 4 times daily after meals and at bedtime as needed, dyspepsia, Starting on Sat12/30/24at 2153, Look-alike/sound-alike medication - verify indication for use. Shake well., Indications: dyspepsiaamino acids- protein hydrolys 17-100 gram-kcal/30 mL liquid (2 sources)take 30 mL by mouth in the morningamino acids-protein hydrolys 17-100 gram-kcal/30 mL liquid Take 30 mL by mouth in the morning. Pro-stat oral lqiuid ( amino ntbqq-caxndde-jkptpbgyrgz) -give 30 ml po in the morning for wound care. Activetake 30 mL by mouth in the morningamino acids-protein hydrolys 17-100 gram-kcal/30 mL liquid Take 30 mL by mouth in the morning. Pro-stat oral lqiuid ( amino hwlul-swversn-pxhifkftylb) -give 30 ml po in the morning for wound care. amitriptyline hydrochloride 10 mg oral tablet (1 source)Tricyclic AntidepressantStart: 05-55-3016hzgx 1 tablet by mouth once dailyamitriptyline (ELAVIL) 10 MG tablet Indications: Chronic right hip pain , Chronic left hip pain , Chronic pain syndrome , Chronic diastolic congestive heart failure (HCC) Take 1 tablet by mouth nightly 90 tablet 11/16/2024 Active amLODIPine 10 mg oral tablet (20 sources)Dihydropyridine Calcium Channel BlockerStart: 46-79-4170aogn 10 mg by mouth once daily for pubvgqmdwhog94 mg, oral, Daily, First dose on [facility] 12/31/24 at 0900, Look-alike/sound-alike medication - verify indication for use. Avoid grapefruit juice., Indications: hypertensionStart: 53-90-2754pbMDIVPjvi (NORVASC) 5 MG tablet 08/19/2024 ActiveStart: 81-72-1570crso 1 tablet by mouth once dailyamLODIPine (NORVASC) 10 MG tablet Indications: Primary hypertension Take 1 tablet by mouth daily 90tablet 1 06/24/2024 ActiveStart: 21-79-8771zzkd 1 tablet by mouth once dailyamLODIPine (NORVASC) 10 MG tablet Indications: Primary hypertension Take 1 tablet by mouth daily 90tablet 3 01/28/2023 ActiveStart: 34-61-9013aqov 1 tablet by mouth once dailyamLODIPine (NORVASC) 10 MG tablet Indications: Primary hypertension take 1 tablet by mouth once daily 90 tablet 0 07/26/2022 ActiveStart: 12-10-0480nqgp 1 tablet by mouth once dailyamLODIPine (NORVASC) 10 MG tablet Indications: Primary hypertension take 1 tablet by mouth once daily 90 tablet 0 05/04/2022 ActiveStart: 77-10-4863icha 1 tablet by mouth once dailyamLODIPine (NORVASC) 10 MG tablet Take 1 tablet by mouth daily 30 tablet 0 12/26/2021 ActiveStart: 02-20-2021 End: 11-92-6864ylzp 1 tablet by mouth once dailyamLODIPine (NORVASC) 5 MG tablet Take 5 mg by mouth daily 0 02/20/2021 06/22/2021 Discontinued (LIST CLEANUP) Start: 07-26-2019 End: 38-22-9669sdog 1 tablet by mouth once dailyamLODIPine (NORVASC) 10 MG tablet Take 1 tablet by mouth daily 30 tablet 3 07/26/2019 ActiveStart: 07-21-2019 End: 33-16-0523yrbw 1 tablet by mouth once dailyamLODIPine (NORVASC) 10 MG tablet Take 1 tablet by mouth daily 30 tablet 3 07/26/2019 03/17/2020 Dis continued (LIST CLEANUP)Start: 07-20-2019 End: 26-26-0126lrUYTLSstt (NORVASC) tablet 5 mgStart: 05-04-2019 End: 24-49-9984efbb 1 tablet by mouth once dailyamLODIPine (NORVASC) 2.5 MG tablet Take 1 tablet by mouth daily 30 tablet 3 05/04/2019 07/25/2019 Di scontinued (Stop Taking at Discharge)amoxicillin 500 mg oral tablet (1 source)Penicillin-class AntibacterialStart: 02-56-2806Ztqhmcbpzdr 500 MG Oral Tablet 03/03/2019 Provider: Elena Malik CNPamoxicillin 875 mg / clavulanate 125 mg oral tablet (20 sources)Penicillin-class AntibacterialStart: 08-10-2024 End: 30-78-9893pfkc 1 tablet by mouth twice daily1 tablet, Oral, 2 TIMES DAILY, 28 doses, First dose on Sat08/12/24 at 2100, Last dose on Sat08/26/24 at 0900, Antimicrobial Indications: Skin and Soft Tissue Infection, Skin duration of therapy: Other, Other Skin and Soft Tissue Infection Duration: 14Start: 65-45-5529Oeccpzklw 500-125 MG Oral Tablet 04/12/2020 Provider: Vahid Nagy CNP Start: 58-60-8077Tfssqvcxp 500-125 MG Oral Tablet 04/12/2020 Provider: Vahid Nagy CNPStart: 09-09-2019 End: 87-95-9653Swbfmkkkj 500-125 MG Oral Tablet 09/09/2019 - 09/23/2019 Provider: Vahid Nagy CNPStart: 15-85-6838Dbcdsihuu 500-125MG Oral Tablet 10/30/2018 Provider: Vahid Nagy CNPStart: 66-43-5461qnds 1 tablet by mouth every twelve hoursAugmentin 875-125 mg oral tablet 02/10/2018 take 1 tablet by oral route every 12 hours x 10 daysStart: 02-10-2018 End: 87-22-5713Umyxeigqj 875-125 MG OR TABS 02/10/2018 - 02/10/2018 Provider: Start: 02-10-2018 End: 88-84-9597Aoqplpxrj 875-125MG OR TABS 02/10/2018 - 02/10/2018 Provider: apixaban 5 mg oral tablet (14 sources)Factor Xa InhibitorStart: 32-85-9096lkmf 5 mg by mouth twice daily5 mg, oral, 2 times daily, First dose on Sat12/30/24 at 2215, Indication: Nonvalvular Atrial Fibrillation (NVAF)Start: 02-33-4353imgz 0.5 tablet by mouth twice dailyapixaban (ELIQUIS) 5 MG TABS tablet Take 0.5 tablets by mouth 2 times daily 90 tablet 1 09/02/2024 ActiveStart: 71-35-5572srzg 5 mg by mouth once daily5 mg, Oral, DAILY, First dose on Sat08/13/24 at 2200, Until Discontinued, Indication of Use: A Fib/A Flutter, ANTICOAGULANTStart: 80-94-3127yfos 1 tablet by mouth twice dailyApixaban (Eliquis) 5 mg tablet Active 5 MG PO Twice daily 60 January 23, 2024 12:00amascorbic acid 500 mg chewable tablet (2 sources)Vitamin CStart: 65-95-1595xpxa 1 tablet by mouth twice dailyascorbic acid (VITAMIN C) 500 MG tablet Take 1 tablet by mouth 2 times daily 30 tablet 3 5ActiveStart: 09-44-1695zhvz 1 tablet by mouth twice dailyascorbic acid (VITAMIN C) 500 MG tablet Take 1 tablet by mouth 2 times daily for 7 days 14 tablet ActiveAspir-81 Oral Tablet Delayed Release (4 sources)Start: 16-53-0162Prwzu-81 Oral Tablet Delayed Release 04/29/2018 Provider:Aspir-81 Oral Tablet Delayed Release (1 source)Start: 92-19-0328Gdmvv-81 Oral Tablet Delayed Release 04/29/2018 Provider:aspirin 81 mg chewable tablet (20 sources)Platelet Aggregation Inhibitor, Nonsteroidal Anti-inflammatory Drug Start: 03-55-3620Vefcoqv (Adult Low Dose Aspirin) 81 mg tablet,delayed release (DR/EC) Active 81 MG PO Daily 2023 12:00amStart: 41-22-1313unab 81 mg by mouth once daily81 mg, oral, Daily, First dose on Jenn 12/31/24 at 0900 Start: 58-06-8477xqfy 1 tablet by mouth once dailyaspirin EC 81 MG EC tablet Indications: Primary hypertension Take 1 tablet by mouth daily 30 tablet3 07/10/2022 ActiveStart: 05-57-0567tctsozx 81 MG Chew Tab chewable tablet Chew 1 tablet daily. 0 06/22/2021 ActiveStart: 41-97-4882dryambt chewable tablet 81 mg Start: 36-07-9358lzdqpyj chewable tablet 81 mgStart: 04-26-2018 End: 93-13-2667Bifpfln 81 81 MG OR TBEC 04/26/2018 - 04/26/2018 Provider: Parker ProviderStart: 02-24-2018 End: 77-64-9825qxbx 1 tablet by mouth once dailyaspirin EC 81 MG EC tablet Take 1 tablet by mouth daily 30 tablet 3 03/19/2020 ActiveAspirin Adult Low Dose 81 MG Oral Tablet Delayed Release (4 sources)Start: 03-21-2020 End: 47-10-5910Pfgzqit Adult Low Dose 81 MG Oral Tablet Delayed Release 03/21/2020 - 03/16/2021 Provider: Vahid Nagy CNPStart: 03-21-2020 End: 86-65-2048Dialvpt Adult Low Dose 81 MG Oral Tablet Delayed Release 03/21/2020 - 04/12/2020 Provider:azelastine hydrochloride 0.137 mg/actuat / fluticasone propionate 0.05 mg/actuat metered dose nasalspray (1 source)Corticosteroid, Histamine-1 Receptor AntagonistStart: 08-13-2023 Azelastine-Fluticasone 137-50 MCG/ACT SUSP Indications: Allergic rhinitis, unspecified seasonality,unspecified trigger 1 each by Nasal route in the morning and at bedtime 23 g 08/13/2023 Activebenzonatate 100 mg oral capsule (20 sources)Non-narcotic AntitussiveStart: 77-03-5016Dldih: 16-03-3611hpwr 200 mg by mouth three times jtbko626 mg, Oral, 3 TIMES DAILY, First dose on [facility] 08/13/24 at 0900, Until DiscontinuedStart: 70-84-9641Bnvtj: 04-06-2024 End: 27-80-3768mzntntntfwt (TESSALON PERLES) 200 mg capsule Take 1 capsule (200 mg total) by mouth as needed in the morning and 1 capsule (200 mg total) as needed at noon and 1 capsule (200 mg total) as needed in the evening for cough. 04/06/2024 ActiveStart: 02-08-9671dgoa 1 capsule by mouth twice daily as needed for coughbenzonatate (TESSALON) 100 MG capsule Indications: Chronic obstructive pulmonary disease, unspecified COPD type (HCC) Take 1 capsule by mouth 2 times daily as needed for Cough 30 capsule 0 08/13/2022ctiveStart: 08-13-2022 End: 58-07-9309ajtv 1 capsule by mouth three times daily as needed for cough benzonatate (TESSALON) 200 MG capsule Take 1 capsule by mouth 3 times daily as needed for Cough 30 capsule 0 08/13/2022 08/20/2022 ActiveStart: 82-76-6766uebo 1 capsule by mouth twice daily as needed for coughbenzonatate (TESSALON) 100 MG capsule Indications: Chronic obstructive pulmonary disease, unspecified COPD type (HCC) Take 1 capsule by mouth 2 times daily as needed for Cough 30 capsule 0 07/10/2022ctiveStart: 24-82-5534nhuvxfrcgon (TESSALON) capsule 100 mgStart: 03-17-2021 End: 11-54-9657ysmvddzejoy (TESSALON) capsule 200 mgStart: 01-19-2020 End: 52-46-8052Jrpyqwyw Perles 100 MG Oral Capsule 02/16/2020 - 03/12/2020 Provider: Vahid Nagy CNPStart: 12-21-2019 End: 78-79-5341Njywiccf Perles 100 MG Oral Capsule 12/21/2019 - 11/16/2019 Provider: Vahid Nagy CNPStart: 12-21-2019 End: 27-39-8953Mveywnup Perles 100 MG Oral Capsule 12/21/2019 - 11/16/2019 Provider: Vahid Nagy CNPStart: 12-21-2019 End: 76-95-9134Vqoteyrq Perles 100 MG Oral Capsule 12/21/2019 - 11/16/2019 Provider: Vahid Nagy CNPStart: 12-21-2019 End: 17-70-7657Gtxnhami Perles 100 MG Oral Capsule 12/21/2019 - 11/16/2019 Provider: Vahid Nagy CNPStart: 14-66-8807Gcpnfyqd Perles 100 MG Oral Capsule 01/22/2019 Provider: Vahid Nagy CNPStart: 09-30-2018 End: 93-53-1286Ffygygsm Perles 100MG Oral Capsule 09/30/2018 - 12/11/2018 Provider: Vahid Nagy CNPStart: 07-28-2018 End: 12-44-4111Slpicrco Perles 100MG Oral Capsule 07/28/2018 - 08/27/2018 Provider: Vahid Nagy CNPStart: 71-93-3295vfxc 1 capsule by mouth three times dailyTessalon Perles 100 mg oral capsule 03/26/2018 take 1 capsule (100 mg) by oral route 3 times per day for up to 30 daysStart: 03-26-2018 End: 68-02-5405KUQBSHPT PERLES 100 mg MISC 03/26/2018 - 03/26/2018 Provider: Start: 01-27-2018 End: 03-32-6703ZXTIQGAC PERLES 100 mg MISC 01/27/2018 - 01/27/2018 Provider: Start: 23-88-8852slwc 1 capsule by mouth three times dailyTessalon Perles 100 mg oral capsule 01/27/2018 take 1 capsule (100 mg) by oral route 3 times per day for up to 30 daysStart: 82-50-0839iyxt 1 capsule by mouth three times daily Tessalon Perles 100 mg oral capsule 12/23/2017 take 1 capsule (100 mg) by oral route 3 times per dayx 14 daysStart: 12-23-2017 End: 65-80-9776ZYBCZUQS PERLES 100 mg MISC 12/23/2017 - 12/23/2017 Provider: Blood Glucose Monitoring Suppl w/Device KIT (7 sources)Start: 77-27-1396Jnvaa Glucose Monitoring Suppl w/Device KIT Indications: Type 2 diabetes mellitus with other specified complication, without long-term current use of insulin (HCC) 1 Device by Does not apply route Daily 1 kit 0 06/22/2021 ActiveBlood Pressure Kit (15 sources)Start: 10-98-2114Safgf Pressure Kit 07/30/2019 Provider: Vahid Nagy CNPBlood Pressure Kit (1 source)Start: 08-07-7384Qtowg Pressure Kit 07/30/2019 Provider: Vahid Nagy CNPBlood Pressure KIT (5 sources)Start: 11-16-1349Gmolo Pressure KIT 1 kit by Does not apply route daily 1 kit 10/18/2023 ActiveBlood Pressure Monitoring MISC (20 sources)Start: 26-52-2328Msnbj Pressure Monitoring MISC Indications: Atherosclerosis of artery of extremity with intermittent claudication (HCC) To monitor blood pressure as needed. Please order device that is covered by insu albert. 1 kit 0 07/25/2019 SuspendedStart: 90-64-9701Tcqlb Pressure Monitoring [facility] Indications: Atherosclerosis of artery of extremity with intermittent claudication (HCC) To monitor blood pressure as needed. Please order device that is covered by insurance. 1 kit 0 07/25/2019 ActiveStart: 06-28-2014 End: 11-32-2102Enxqv Pressure Monitoring [facility] Indications: Atherosclerosis of artery of extremity with intermittent claudication (HCC) To monitor blood pressure as needed. Please order device that is covered by insurance. 1 kit 0 06/28/2014 07/25/2019 Discontinued (REORDER)Start: 90-11-8193Wqghf Pressure Monitoring [facility] Indications: Atherosclerosis of artery of extremity with intermittent claudication (HCC) To monitor blood pressure as needed. Please order device that is covered by insurance. 1 kit 0 06/28/2014 Uhjpfg218 actuat budesonide 0.18 mg/actuat dry powder inhaler (6 sources)CorticosteroidStart: 04-02-7603eocp 2 puff(s) by inhalation in the morningbudesonide (PULMICORT FLEXHALER) 180 MCG/ACT AEPB inhaler Indications: Chronic obstructive pulmonary disease, unspecified COPD type (HCC) Inhale 2 puffs into the lungs in the morning and 2 puffs in the evening. 1 each 5 12/22/2021 ActiveStart: 05-10-2021 End: 64-81-4589pbqn 2 puff(s) by inhalation twice dailybudesonide (PULMICORT FLEXHALER) 180 MCG/ACT AEPB inhaler Inhale 2 puffs into the lungs 2 times daily 1 each 2 05/10/2021 06/22/2021 Discontinued (LIST CLEANUP)Start: 13-55-5795730 mcg (0.25 mg), Nebulization, 2 TIMES DAILY, First dose on [facility] 03/17/20 at 2100 Substituted for Beclomethasone (QVAR).Calcium (12 sources)Phosphate Binder, CalciumStart: 43-97-4535Cjwkjlr 600MG Oral Tablet 04/29/2018 Provider:Start: 08-16-2017 End: 32-35-9905SEBVTUV 600 600 mg calcium(1,500 MG) MISC 08/16/2017 - 08/16/2017 Provider:carisoprodol 350 mg oral tablet (20 sources)Muscle RelaxantStart: 04-29-2018 End: 32-77-3374Esgitxbiotys 350MG Oral Tablet 05/27/2018 Provider: Vahid Nagy CNPStart: 12-12-2017 End: 97-40-2908Yyeqxsypwwgg 350MG OR TABS 12/12/2017 - 12/12/2017 Provider: Start: 12-09-2017 End: 90-56-4430Garxvnvkcnvi 250 MG OR TABS 12/09/2017 - 12/09/2017 Provider: carvedilol 12.5 mg oral tablet (10 sources)alpha-Adrenergic Bella, beta-Adrenergic BlockerStart: 02-06-2024 take 12.5 mg by mouth twice daily at .5 mg, oral, 2 times daily with meals, [...] ActivecefTRIAXone 1000 mg injection (2 sources)Cephalosporin AntibacterialStart: 28-16-1435ygpc 1000 mg intravenously every twenty-four hours1,000 mg, [...] oral tablet (3 sources)Cephalosporin AntibacterialStart: 01-01-2025 End: 58-60-8631zufn 2 tablets by mouth in the morning, then take 2 tablets by mouth at bedtimeceFUROxime (CEFTIN) 250 mg tablet Take 2 tablets (500 mg total) by mouth in the morning and 2 tablets (500 mg total) before bedtime. Do all this for 3 days. 01/01/2025 01/04/2025 ActiveStart: 07-16-2024 End: 40-78-0849xumc 1 tablet by mouth in the morning, then take 1 tablet by mouth at bedtimeceFUROxime (CEFTIN) 500 mg tablet Take 1 tablet (500 mg total) by mouth in the morning and 1 tablet(500 mg total) before bedtime. Do all this for 7 days. 14 tablet 07/16/2024 07/23/2024 Exrhtt20 hr chlorpheniramine polistirex 1.6 mg/ml / HYDROcodone polistirex 2 mg/ml extended release suspen ryan (3 sources)Histamine-1 Receptor Antagonist, Opioid AgonistStart: 03-13-2020 End: 09-79-4091nsmu 5 mL by mouth every twelve hours as needed for cough HYDROcodone-chlorpheniramine (TUSSIONEX PENNKINETIC ER) 10-8 MG/5ML SUER Indications: Bronchitis Take 5 mLs by mouth every 12 hours as needed (cough) for up to 3 days. 30 mL 0 03/13/2020 03/16/2020 ActiveStart: 03-13-2020 End: 60-09-4881TJKSFytuceq-chlorpheniramine (TUSSIONEX) 10-8 MG/5ML oral suspension 5 mLStart: 04-21-2019 End: 74-93-4405hrsublafgxc-chlorpheniramine (TUSSIONEX) 10-8 MG/5ML oral suspension 5 mLcholecalciferol 0.025 mg oral tablet (20 sources)Vitamin DStart: 52,000 Units, oral, Daily, First dose on [facility] 12/31/24 at 1515, 1000 units = 25 mcgStart: 04-29-2018 End: 23-50-5369Oexlmoy D3 400UNIT Oral Tablet 04/29/2018 - 04/12/2020 Provider: Start: 71-03-0879Uvhxraq D3 400UNIT Oral Tablet 04/29/2018 Provider:Start: 63-13-0020zvzw 1 capsule by mouth twice dailyVitamin D3 400 unit oral capsule 08/16/2017 take 1 capsule by oral route twice dailycholecalciferol, vitamin D3, 2,000 units tablet Take by mouth in the morning. Activecromolyn sodium 40 mg/ml ophthalmic solution (4 sources)Mast Cell StabilizerStart: 89-92-6141Ntkdylff Sodium 4% Ophthalmic Solution 07/28/2018 Provider: Vahid Nagy CNPdextromethorphan hydrobromide 1 mg/ml / guaiFENesin 20 mg/ml oral solution (2 sources)Uncompetitive T-kaauzj-F-aspartate Receptor Antagonist, Sigma-1 AgonistStart: 11-04-2023 End: 02-16-5920Ephgfwmhfysimdsu-guaiFENesin (ROBITUSSIN DM) 5-100 MG/5ML LIQD liquid Take 5 mLs by mouth every 4 hours as needed for Cough 120 mL 11/04/2023 11/14/2023 ActiveStart: 80-34-1152yzidNLNhmzk-dextromethorphan (ROBITUSSIN DM) 100-10 MG/5ML syrup 5 mLdiphenhydrAMINE hydrochloride 25 mg oral capsule (2 sources)Histamine-1 Receptor AntagonistStart: 85-97-1871afda 1 capsule by mouth every six hours as neededdiphenhydrAMINE (BENADRYL) 25 mg capsule Take 1 capsule (25 mg total) by mouth every 6 (six) hours as needed for itching. 30 capsule 12/11/2024 Activedocusate sodium 100 mg oral capsule (11 sources)Start: 02-06-2024 End: 52-17-3029ukitxsjh sodium (COLACE) 100 mg capsule Take 1 capsule (100 mg total) by mouth as needed in the morning and 1 capsule (100 mg total) as needed in the evening for constipation. 02/06/2024 Activedocusate sodium 50 mg / sennosides, skilled nursing 8.6 mg oral tablet (1 source)Start: 12-56-0401zttq 1 tablet by mouth every twelve hours as needed for constipation1 tablet, oral, Every 12 hours PRN, constipation, Starting on Sat12/30/24 at 2153doxycycline hyclate 100 mg oral capsule (6 sources)Tetracycline-class DrugStart: 12-30-2024 End: 77-87-0401ylxh 1 capsule by mouth in the morning, then take 1 capsule by mouth at bedtimedoxycycline (VIBRAMYCIN) 100 mg capsule Take 1 capsule (100 mg total) by mouth in the morning and 1capsule (100 mg total) before bedtime. Do all this for 3 days. 01/01/2025 01/04/2025 ActiveStart: 07-16-2024 End: 22-74-5077ggyu 1 tablet by mouth in the morning, then take 1 tablet by mouth at bedtimedoxycycline (VIBRA-TABS) 100 mg tablet Take 1 tablet (100 mg total) by mouth in the morning and 1 tablet (100 mg total) before bedtime. Do all this for 7 days. 14 tablet 07/16/2024 07/23/2024 ActiveStart: 08-07-2022 End: 81-25-3238ycgk 1 tablet by mouth twice dailydoxycycline hyclate (VIBRA- TABS) 100 MG tablet Indications: Bronchitis , Hypoxia Take 1 tablet by mouth 2 times daily for 10 days 20 tablet 0 08/07/2022 08/17/2022 ActiveStart: 03-19-2021 End: 93-63-4900kwkh 1 tablet by mouth twice dailydoxycycline hyclate (VIBRA- TABS) 100 MG tablet Take 1 tablet by mouth 2 times daily for 10 days 20 tablet 0 03/19/2021 03/29/2021 ActiveElastic Bandages & Supports (JOBST KNEE HIGH COMPRESSION SM) MISC (3 sources)Start: 71-62-1599Nuqylsk Bandages & Supports (JOBST KNEE HIGH COMPRESSION ) [facility] [place] Indications: Leg edema 1 eachby Does not apply route daily as needed (Leg swelling) 2 each 0 03/23/2021 Activeempagliflozin 10 mg oral tablet (3 sources)Sodium-Glucose Cotransporter 2 InhibitorStart: 99-99-7809fcqh 1 tablet by mouth once dailyempagliflozin (JARDIANCE) 10 MG tablet Take 1 tablet by mouth daily 08/18/2024 ActiveStart: 78-40-5525lxjc 1 tablet by mouth once dailyempagliflozin (JARDIANCE) 10 MG tablet Take 1 tablet by mouth daily 08/18/2024 ActiveStart: 72-29-795131 mg, Oral, DAILY, First dose on 08/15/24 at 0900, Until Discontinued, Indication of Use: Type 2 diabetes, Heart Failure (preserved EF), Substituted for dapagliflozin (FARXIGA). Note: Discontinuation of therapy 3 days prior to surgery or major procedures is recommended given the risk for euglycemic diabetic ketoacidosis.0.3 ml enoxaparin sodium 100 mg/ml prefilled syringe (4 sources)Low Molecular Weight HeparinStart: 09-16-9607fwplfeasby (LOVENOX) injection 30 mgStart: 70-31-2362fydnfdufit (LOVENOX) injection 40 mgStart: 90-10-6642juiqto 40 mg by subcutaneous injection once daily40 mg, Subcutaneous, DAILY, First dose on 07/18/19 at 0900Start: 53-76-7677cobgva 40 mg by subcutaneous injection once daily40 mg, Subcutaneous, DAILY, First dose on 04/22/19 at 0900ergocalciferol 1.25 mg oral capsule (7 sources)Provitamin D2 CompoundStart: 67-26-0960eczu 1 capsule by mouth every weekErgocalciferol (VITAMIN D) 63711 units CAPS Take 50,000 Units by mouth once a week 5 capsule 3 10/31/2024 ActiveStart: 10-22-2022 End: 16-32-1879gqgv 73423 [IU] by mouth every week50,000 Units, Oral, WEEKLY, First dose on 08/16/24 at 1700, Until DiscontinuedStart: 00-66-3637vgoi 1 capsule by mouth every weekvitamin D (ERGOCALCIFEROL) 1.25 MG (92761 UT) CAPS capsule Take 1 capsule by mouth once a week 12 capsule 0 07/30/2022 Active escitalopram 10 mg oral tablet (8 sources)Serotonin Reuptake InhibitorStart: 08-07-2022 End: 84-63-6707tdza 1 tablet by mouth once dailyescitalopram (LEXAPRO) 10 MG tablet Indications: Depression, unspecified depression type Take 1 tablet by mouth daily 30 tablet 0 08/07/2022 ActiveStart: 05-35-0946xvnl 1 tablet by mouth once dailyescitalopram (LEXAPRO) 5 MG tablet Indications: Depression, unspecified depression type take 1 tablet by mouth once daily 90 tablet 0 05/28/2022 Activeferrous sulfate 325 mg oral tablet (8 sources)Start: 07-61-1890rvhk 325 mg by mouth once mg, oral, Daily, First dose on Sat12/31/24 at 1515, Give ferrous sulfate 2 hours before or 4 gracie rs after antacids.Start: 48-97-8903pvud 1 tablet by mouth once daily at breakfastferrous sulfate (IRON 325) 325 (65 Fe) MG tablet Take 1 tablet by mouth daily (with breakfast) 08/18/2024 ActiveStart: 35-81-5220hvkg 1 tablet by mouth once daily at breakfastferrous sulfate (IRON 325) 325 (65 Fe) MG tablet Take 1 tablet by mouth daily (with breakfast) 08/18/2024 ActiveStart: 67-99-9512gidf 1 dose by mouth every four xcnaw041 mg, Oral, DAILY WITH BREAKFAST, First dose on 08/16/24 at 1200, Until Discontinued, Separateiron & levothyroxine by 4 hours Start: 66-67-9571qzwk 1 tablet by mouth once daily at breakfastFEROSUL 325 (65 Fe) MG tablet Indications: Anemia, unspecified type Take 1 tablet by mouth daily (with breakfast) 90 tablet 1 04/12/2023 Activefluconazole 150 mg oral tablet (20 sources)Azole AntifungalStart: 04-30-1094Mysudxnh 150 MG Oral Tablet 04/12/2020 Provider: Vahid Nagy CNPStart: 60-08-9570Psfzdfyc 150 MG Oral Tablet 04/12/2020 Provider: Vahid Nagy CNPStart: 09-09-2019 End: 53-09-2530Hiszpuvj 150 MG Oral Tablet 09/09/2019 - 09/24/2019 Provider: Vahid Nagy CNPStart: 07-18-2019 End: 03-26-7415aliphgvfmkf (DIFLUCAN) 40 MG/ML suspension 200 mgStart: 11-26-2017 End: 97-23-9259Gpghkcmq 150 MG OR TABS 11/26/2017 - 11/26/2017 Provider:Start: 75-69-9889qjtu 1 tablet by mouth onceDiflucan 150 mg oral tablet 11/26/2017 take 1 tablet (150 mg) by oral route once for symptoms of yeast infection while on zwmidrellk975 actuat fluticasone propionate 0.044 mg/actuat metered dose inhaler (20 sources)CorticosteroidStart: 70-17-0419pwtr 2 puff(s) by inhalation twice dailyFLOVENT HFA 44 MCG/ACT inhaler Inhale 2 puffs into the lungs 2 times daily 1 each 5 12/18/2022 ActiveStart: 08-07-7365oycp 1 puff(s) by inhalation once dailyfluticasone (ARNUITY ELLIPTA) 100 MCG/ACT AEPB Inhale 1 puff into the lungs daily 30 each 3 11/30/2021 ActiveStart: 62-86-1625Bpwxpzl Allergy Relief 50 MCG/ACT Nasal Suspension 08/04/2019 [...] dry powder inhaler (1 source)Corticosteroid, beta2-Adrenergic AgonistStart: 51-87-5480ypny 1 puff(s) by inhalation once daily1 puff, inhalation, Daily, First dose on Sat12/31/24 at 3612beroxcwfmdk-jgikhwgys-jylqzq (TRELEGY ELLIPTA) 200-62.5-25 MCG/ACT AEPB inhaler (1 source)Start: 56-81-3673kbzv 1 puff(s) by inhalation once daily chxguxaasve-pbvffgfga-glstxi (TRELEGY ELLIPTA) 200-62.5-25 MCG/ACT AEPB inhaler Indications: Chronic obstructive pulmonary disease, unspecified COPD type (HCC) Inhale 1 puff into the lungs daily 1 each 4 09/13/2023 Maevax574 actuat formoterol fumarate 0.0048 mg/actuat / glycopyrrolate 0.009 mg/actuat metered dose inhaler (20 sources)beta2-Adrenergic AgonistStart: 05-04-2019 End: 96-15-7489zzoyvhxwptnarf-formoterol (BEVESPI AEROSPHERE) 9-4.8 MCG/ACT AERO Indications: Chronic obstructive pulmonary disease, unspecified COPD type (HCC) Inhale 2 puffs into the lungs 2 times daily 1 Zweaoey83 07/25/2019 Active gabapentin 400 mg oral capsule (20 sources)Anti-epileptic AgentStart: 54-44-8981eapo 800 mg by mouth three times hxilt520 mg, oral, 3 times daily, First dose on Sat12/30/24 at 2215, Look-alike/sound-alike medication -verify indication for use.Start: 09-03-2024 End: 17-43-0367sdsk 1 tablet by mouth three times dailygabapentin (NEURONTIN) 800 MG tablet Indications: Chronic diastolic congestive heart failure (HCC) , COPD with acute exacerbation (HCC) Take 1 tablet by mouth 3 times daily for 90 days. 270 tablet 09/03/2024 12/02/2024 ActiveStart: 49-51-5064cfmp 600 mg by mouth three times xopho619 mg, Oral, 3 TIMES DAILY, First dose (after last modification) on Sat08/13/24 at 1400, Until DiscontinuedStart: 08-12-2024 End: 96-48-5945jhgj 800 mg by mouth three times ynaky410 mg, Oral, 3 TIMES DAILY, First dose on Sat08/12/24 at 1545, Until DiscontinuedStart: 08-07-2024 take 600 mg by mouth three times tpjyg756 mg, Oral, 3 TIMES DAILY, First dose (after last modification) on Sat08/07/24 at 1400, Until DiscontinuedStart: 08-07-2024 End: 40-02-4195hdfv 300 mg by mouth three times exdhg679 mg, Oral, 3 TIMES DAILY, First dose (after last modification) on Sat08/07/24 at 0900, Until Disco ntinuedStart: 08-06-2024 End: 21-33-7108wpht 800 mg by mouth three times ibvrb397 mg, Oral, 3 TIMES DAILY, First dose on Sat08/06/24 at 1515, Until DiscontinuedStart: 04-30-2024 End: 15-88-6239bmug 1 tablet by mouth three times dailygabapentin (NEURONTIN) 800 MG tablet Indications: Chronic diastolic congestive heart failure (HCC) , COPD with acute exacerbation (HCC) Take 1 tablet by mouth 3 times daily for 90 days. 270 tablet 04/30/2024 ActiveStart: 80-82-5727xnzc 300 mg by mouth three times dailyGabapentin Active 300 MG PO Three times daily January 23, 2024 12:00amStart: 01-19-2024 End: 89-69-1890hrsd 800 mg by mouth four times dailyGabapentin Discontinued 800 MG PO Four times daily January 19, 2024 12:00am January 23, 2024 3:47pm Start: 10-21-2023 End: 11-46-4092fmrt 1 tablet by mouth once daily at bedtimegabapentin (NEURONTIN) 800 MG tablet Indications: Chronic right hip pain , Lumbar back pain with radiculopathy affecting right lower extremity , Chronic left hip pain , Chronic pain syndrome , Sacralpain take 1 tablet by mouth every morning , AT NOON , every evening and at bedtime 120 tablet 10/21/2023 11/21/2023 Active Start: 07-03-2022 End: 14-74-7939hszm 1 tablet by mouth three times dailygabapentin (NEURONTIN) 800 MG tablet Indications: Chronic left hip pain take 1 tablet by mouth three times a day 90 tablet 0 08/02/2022 09/01/2022 ActiveStart: 68-02-0191ozto 800 mg by mouth three times mg, Oral, 3 TIMES DAILY, First dose on Sat04/21/19 at 2300Start: 02-11-2019 End: 58-65-8352Pbcbllkxha 600 MG Oral Tablet 07/09/2019 Provider: Vahid Nagy CNPStart: 06-27-2018 End: 24-09-6697Qjjswzggko 600MG Oral Tablet 09/29/2018 - 01/22/2019 Provider: Vahid Nagy CNPStart: 04-26-2018 End: 75-09-1534Lcqyywhniu 600 MG OR TABS 04/26/2018 - 04/26/2018 Provider: Conversion ProviderStart: 04-03-2018 End: 96-20-1887Cckymlhxkc 800MG OR TABS 04/03/2018 - 04/03/2018 Provider:Start: 08-09-2017 End: 01-05-7194Vorjzmtrgl 800MG OR TABS 08/09/2017 - 08/09/2017 Provider:Start: 01-15-2017 End: 01-09-2172Dasxfthpex 800MG Oral Tablet 04/29/2018 - 06/27/2018 Provider: Start: 12-14-2016 End: 49-40-9837Ecgimaxylv 600 MG OR TABS 12/14/2016 - 12/14/2016 Provider:Start: 04-14-2015 End: 25-94-6013Syekwhdtls 600 MG OR TABS 04/14/2015 - 04/14/2015 Provider: End: 62-61-6371mfhmfuufxu (NEURONTIN) 600 mg tablet Take 800 mg [...] 70 mg/dL after initial treatment, repeat treatment.Start: 41-81-4590lgeh 1 mL intravenous route every hour1 mg, Intramuscular, PRN, Low blood sugar, Blood glucose less than 70 mg/dL and patient NOT ALERT or NPO and does not have IV access., Starting Sat03/18/20 at 1350 After administration, attempt intravenous access and start D5W at 100 mL/hr. Repeat blood glucose in 15 minutes x2 and notify provider.Start: 83-27-8612opzoprrx (rDNA) injection 1 mgStart: 04-24-2019 glucagon (rDNA) injection 1 mg150 ml glucose 50 mg/ml injection (13 sources)Start: g, oral, As needed, low blood sugar, blood glucose less than 70 mg/dL, Starting on Sat12/30/24 at 2153, If patient conscious and taking PO. If blood glucose is not greater than 70 mg/dL after initial treatment, repeat treatment.Start: 22-47-175081 mL, intravenous, As needed, low blood sugar, [...] VESICANT (RED) Warning: HYPERTONIC solution.Start: 12-30-2024 End: 40-80-4741uehh 70 mg intravenously every hliy910 mL/hr, intravenous, Continuous PRN, blood glucose less than 70 mg/dL, Starting on Sat12/30/24 at 2153, For 365 days, Use immediately following dextrose 50% or glucagon treatment for patients who are unconscious or NPO. Contact prescriber for additional orders. If blood glucose is not greater than 70 mg/dL after initial treatment, repeat treatment.Start: 07-19-2021 End: 35-64-1283klsechrq 50% injection 12.5 gStart: 95-27-956501 g, Oral, PRN, Low blood sugar, Starting [...] in 15 minutes x2 and notify provider.Start: 39-37-681296.5 g, Intravenous, PRN, Low blood sugar, Blood [...] using Glucostabilizer, dose as instructed per system.Start: 37-37-1523727 mL/hr, Intravenous, at 100 mL/hr, PRN, Low blood sugar, Starting Sat03/18/20 at 1350 Start infusion following administration of dextrose 50% or glucagon.Start: 64-62-5253skwccagx 5 % solutionStart: 89-37-1461inxliek (GLUTOSE) 40 % oral gel 15 gStart: 07-18-2019 dextrose 50 % IV solutionStart: 20-33-3300ftnhhew (GLUTOSE) 40 % oral gel 15 g Start: 08-85-1258krzojqrg 50 % IV solutionStart: 13-45-7770spghaxag 5 % solution glucose monitoring (FREESTYLE FREEDOM) kit (10 sources)Start: 78-32-3026utalsnr monitoring (FREESTYLE FREEDOM) kit Indications: Type 2 diabetes mellitus with other specified complication, without long-term current use of insulin (HCC) 1 kit by Does not apply route daily 1 kit 0 03/23/2021 Zrpyaa18 hr guaiFENesin 600 mg extended release oral tablet (20 sources)Start: 01-01-2025 End: 94-18-1256mddd 1 tablet by mouth onceguaiFENesin (MUCINEX) 600 mg tablet extended release 12hr Take 1 tablet (600 mg total) by mouth every 12 (twelve) hours for 3 days. 01/01/2025 01/04/2025 ActiveStart: 72-50-3626kywg 600 mg by mouth every twelve mg, oral, Every 12 hours scheduled, First dose on Sat12/30/24 at 2200, Look-alike/sound-alike medication - verify indication for use. Do not crush or chew.Start: 01-17-2024 End: 52-79-9550ehhoBHJpimw 1,200 mg tablet extended release 12hr Take 1,200 mg by mouth every 12 (twelve) hours. 30 each 01/17/2024 04/17/2024 Discontinued (Therapy completed)Start: 05-17-2021 End: 94-21-0833gnmj 1 tablet by mouth twice dailyguaiFENesin (MUCINEX) 600 MG extended release tablet Take 1 tablet by mouth 2 times daily 0 05/17/2021 06/22/2021 Discontinued (LIST CLEANUP)Start: 03-26-2018 End: 33-75-1397tgap 10 mL by mouth every four hours as neededguaifenesin 100 mg/5 mL oral liquid 03/26/2018 04/15/2018 take 10 milliliters (200 mg) by oral routeevery 4 hours as needed for 10 daysStart: 03-26-2018 End: 34-64-8623QNDGNBNCPLC 100 MG/5 ML [facility] 03/26/2018 - 03/26/2018 Provider: Start: 03-26-2018 End: 89-35-9043NXKDRUFOTZG 100MG/5 ML [facility] 03/26/2018 - 03/26/2018 Provider:1 ml hydrALAZINE hydrochloride 20 mg/ml injection (2 sources)Arteriolar VasodilatorStart: 88-57-804662 mg, Intravenous, EVERY 10 MIN PRN, High Blood Pressure, Starting Sat03/18/20 at 1350, For 2 doses For SBP greater than 150 mmHG Recovery(Cath)Start: 83-62-4479bzmyJODPREM (APRESOLINE) injection 10 mgibuprofen 800 mg oral tablet (20 sources)Nonsteroidal Anti-inflammatory DrugStart: 10-12-2024 End: 70-17-0497thah 1 tablet by mouth three times daily at mealtimeibuprofen (ADVIL;MOTRIN) 800 MG tablet Indications: Chronic right hip pain , Lumbar back pain with radiculopathy affecting right lower extremity , Chronic left hip pain , Chronic pain syndrome , Sacral pain Take 1 tablet by mouth 3 times daily (with meals) 90 tablet 11/19/2024 12/19/2024 ActiveStart: 01-19-2024 End: 11-28-5230bwij 1 tablet by mouth three times dailyIbuprofen (Ibu) 800 mg tablet Discontinued 800 MG PO Three times daily January 19, 2024 12:00am Oc tober 2023 3:47pmStart: 91-35-9549dpiwplsvb (ADVIL;MOTRIN) tablet 400 mg Start: 04-14-2019 End: 00-15-9815Fdpjoicvt 600 MG Oral Tablet 07/03/2019 Provider: Vahid Nagy CNPStart: 04-29-2018 End: 37-75-7440Khpycjxhg 800MG Oral Tablet 06/11/2018 Provider: Vahid Nagy CNP Start: 01-08-2018 End: 03-90-2009Nkgynntbo 800 MG OR TABS 01/08/2018 - 01/08/2018 Provider:Start: 59-96-7065pvyf 1 tablet by mouth twice daily as needed for painibuprofen 800 mg oral tablet 10/10/2017 take 1 tablet (800 mg) by oral route BID prn for pain with foodStart: 10-10-2017 End: 36-33-7209Imqnlmhfm 800 MG OR TABS 10/10/2017 - 10/10/2017 Provider:Start: 58-17-7447mnkn 1 tablet by mouth twice daily as needed for painibuprofen 800 mg oral tablet 05/15/2017 take 1 tablet (800 mg) by oral route BID prn for pain with foodStart: 05-15-2017 End: 13-97-1910Dldwjenyj 800 MG OR TABS 05/15/2017 - 05/15/2017 Provider:Start: 01-07-2017 End: 04-86-4942Mlyhchesv 800 MG OR TABS 01/07/2017 - 01/07/2017 Provider: Incontinence Supplies MISC (9 sources)Start: 18-80-8080Rdbckzpqupcf Supplies MISC Indications: Urge incontinence of urine Use as directed for gonnwysxgiwv943 each 5 10/23/2022 ActiveStart: 20-22-8336Xdzpzmjucrlc Supplies MISC Indications: Functional incontinence Use as directed for urinary incontinence. 150 each 1 03/13/2022 ActiveIncontinence Supply Disposable ([facility] INCONTINENCE PADS) MISC (4 sources)Start: 76-23-0605Xlfzzjijjyrc Supply Disposable ([facility] INCONTINENCE PADS) MISC Indications: Urge incontinence of urine 1 each by Does not apply route 4 times daily as needed (incontinence) 90 each 1 09/21/2022 A ctiveStart: 11-84-3703Ptydhsuldkdh Supply Disposable ([facility] INCONTINENCE PADS) MISC Indications: Urinary incontinence, unspecified type 1 each by Does not apply route 2 times daily 150 each 1 04/06/2021 ActiveIncontinence Supply Disposable MISC (20 sources)Start: 68-11-7606Mwporgmioybp Supply Disposable MISC Indications: Incontinence Incontinence pads 150 per month. Please order pad that is covered by insurance plan 150 each 3 07/25/2019 SuspendedStart: 86-15-7313Fcocntunucha Supply Disposable MISC Indications: Incontinence Incontinence pads 150 per month. Please order pad that is covered by insurance plan 150 each 3 07/25/2019 ActiveStart: 09-21-2014 End: 45-59-7558Dycxkxapmbpg Supply Disposable MISC Indications: Incontinence Incontinence pads 150 per month. Please order pad that is covered by insurance plan 150 each 3 09/21/2014 07/25/2019 Discontinued (REORDER)Start: 09-21-2014 Incontinence Supply Disposable MISC Indications: Incontinence Incontinence pads 150 per month. Please order pad that is covered by insurance plan 150 each 3 09/21/2014 Active3 ml insulin lispro 100 unt/ml pen injector (12 sources)Insulin AnalogStart: 96-49-0370ncfbju 400 mg by subcutaneous injection three times [...] minutes before or immediately after a meal.Start: 01-90-2236qtsrxk 400 mg by subcutaneous injection once daily, [...] Units Above 400 &nbsp ; 6 UnitsStart: 27-31-99505-12 Units, Subcutaneous, 3 TIMES DAILY WITH MEALS, First dose on Sat03/18/20 at 1700 Medium Dose Corrective Algorithm Glucose: Dose: If <139 &am p;nbsp; No Insulin 140- 199 2 Units 200-249 4 Units 250-299 6 Units 300-349 8 Units&a mp;nbsp;350-400 10 Units Above 400 12 UnitsStart: 07-18-2019 End: 83-45-7427tnzkvqs lispro (HUMALOG) injection vial 0-6 UnitsStart: 69-23-0579tuqygqj lispro (HUMALOG) injection vial 0-3 Unitsiron sucrose (VENOFER) 200 mg in sodium chloride 0.9 % 100 mL IVPB (1 source)Start: 08-15-2024 End: 44-42-1338111 mg, IntraVENous, at 440 mL/hr, Administer over 15 Minutes, EVERY 24 HOURS, First dose on [facility] 08/15/24 at 1600, For 3 days, Observe for signs and symptoms of hypersensitivity and/or anaphylactic-type reactions per institutional standard during and for at least 30 minutes following the end of administration and until clinically stable.4 ml labetalol hydrochloride 5 mg/ml cartridge (2 sources)beta-Adrenergic BlockerStart: 80-74-689336 mg, Intravenous, EVERY 30 MIN PRN, High Blood Pressure, Starting Sat03/18/20 at 1350, For 2 doses For SBP greater than 150 mmHG. Hold if heart rate is less than 60. Dont use if hydralazine was used as PRN Recovery(Cath)Start: 07-18-2019 End: 60-41-1111lhyvohplu (NORMODYNE;TRANDATE) injection 10 mgammonium lactate 120 mg/ml topical lotion (4 sources)Start: 44-27-8101hiqxkpxa lactate (LAC-HYDRIN) 12 % lotion Indications: Dry skin Apply topically as needed. 396 g 2 06/15/2024 Active lactobacillus rhamnosus gg [id number] unt oral capsule (1 source)Start: 88-44-4189wqpf 1 capsule by mouth once daily at breakfast lactobacillus (CULTURELLE) capsule Take 1 capsule by mouth daily (with breakfast) 30 capsule 10/27/2024 ActivelevoFLOXacin 250 mg oral tablet (11 sources)Quinolone AntimicrobialStart: 07-85-5106xaor 1 tablet by mouth once daily after ewnicaby423 mg, oral, Daily, First dose on Jenn [...] Box warnings of fluoroquinolones. Start: 12-11-2024 End: 23-33-5088mtbq 1 tablet by mouth in the morninglevoFLOXacin (LEVAQUIN) 750 mg tablet Take 1 tablet (750 mg total) by mouth in the morning for 28 days. 28 tablet 12/11/2024 01/08/2025 ActiveStart: 08-13-2022 End: 98-87-3651ssqv 1 tablet by mouth once dailylevoFLOXacin (LEVAQUIN) 750 MG tablet Indications: Chronic obstructive pulmonary disease, unspecified COPD type (HCC) Take 1 tablet by mouth daily for 7 days 7 tablet 0 08/13/2022 08/20/2022 ActiveStart: 10-06-2019 End: 42-55-2389xarz 1 tablet by mouth once dailylevoFLOXacin (LEVAQUIN) 500 MG tablet Take 1 tablet by mouth daily for 10 days 10 tablet 0 10/06/2019 10/16/2019 ActiveStart: 07-18-2019 End: 66-50-6810loxlrdhgvwdn (LEVAQUIN) 750 MG/150ML infusion 750 mgStart: 07-17-2019 End: 31-76-4033nxelayttdirg (LEVAQUIN) 500 MG/100ML infusion 500 mgStart: 04-26-2019 End: 21-19-9769unie 1 tablet by mouth once dailylevofloxacin (LEVAQUIN) 500 MG tablet Take 1 tablet by mouth daily for 5 days 5 tablet 0 ActiveStart: 91-53-5718064 mg, Intravenous, EVERY 24 HOURS, First dose on Sat04/22/19 at 2100, Until DiscontinuedStart: 04-21-2019 End: 97-18-2297uyewmqbyfack (LEVAQUIN) 750 MG/150ML infusion 750 mglidocaine 0.05 mg/mg medicated patch (15 sources)Antiarrhythmic, Amide Local AnestheticStart: 11-19-2024 End: 15-16-0147rtzquwdnv (LIDODERM) 5 % Place 1 patch onto the skin daily for 10 days 12 hours on, 12 hours off. 10 patch 11/19/2024 11/29/2024 ActiveStart: 19-00-8288ddzi 15 mL by mouth four times daily as neededlidocaine viscous hcl (XYLOCAINE) 2 % SOLN solution Take 15 mLs by mouth 4 times daily as needed Along with Diphenhydramine and antacid 07/21/2024 ActiveStart: 02-22-2021 End: 27-24-0305urfph 1 dose transdermal route once dailylidocaine (LIDODERM) 5 % Place 1 patch onto the skin daily 12 hours on, 12 hours off. 10 patch 0 03/17/2021 Discontinued (LIST CLEANUP)Start: 28-50-3847zlndycvls 4 % external patch 1 patchStart: 04-05-2020 End: 09-64-7659vysyc 1 dose transdermal route once dailylidocaine (LIDODERM) 5 % Place 1 patch onto the skin daily 12 hours on, 12 hours off. 10 patch 0 01/2021 ActiveStart: 07-22-2019 End: 69-28-1764xepkeuwvz 1 % injection 5 mLStart: 07-22-2019 End: 56-85-4894yfgrnzjbo 1 % injectionStart: 04-12-2019 End: 95-79-4855ckyme 1 dose transdermal route once dailylidocaine (LIDODERM) 5 % Place 1 patch onto the skin daily 12 hours on, 12 hours off. 30 patch 0 03/202004/26/2019 Discontinued (Stop Taking at Discharge)linezolid 600 mg oral tablet (1 source)Oxazolidinone AntibacterialStart: 11-16-2024 End: 40-45-1996bfxm 1 tablet by mouth twice dailylinezolid (ZYVOX) 600 MG tablet Indications: Cellulitis, unspecified cellulitis site Take 1 tablet by mouth 2 times daily for 7 days 14 tablet 11/16/2024 11/23/2024 Activeliothyronine sodium 0.005 mg oral tablet (1 source)l-TriiodothyronineStart: 34-13-5806oadz 2 tablets by mouth once daily liothyronine (CYTOMEL) 5 MCG tablet Take 2 tablets by mouth daily 04/21/2023 Activelisinopril 40 mg oral tablet (20 sources)Angiotensin Converting Enzyme InhibitorStart: 23-93-2605tnqh 1 tablet by mouth once dailylisinopril 40 MG tablet Take 1 tablet by mouth daily. 0 06/22/2021 ActiveStart: 07-26-2019 End: 32-70-0940unak 1 tablet by mouth once dailylisinopril (PRINIVIL;ZESTRIL) 20 MG tablet Take 1 tablet by mouth daily 30 tablet 3 07/26/2019 ActiveStart: 72-68-4568mdxk 1 tablet by mouth once dailylisinopril (PRINIVIL;ZESTRIL) 20 MG tablet Take 1 tablet by mouth daily 30 tablet 3 07/26/2019 ActiveStart: 07-24-2019 End: 56-51-3899kemtrjobyq (PRINIVIL;ZESTRIL) tablet 5 mgStart: 04-29-2018 End: 44-53-3229Utwdakwgop 10 MG Oral Tablet 03/21/2020 Provider: Vahid Nagy CNPStart: 08-16-2017 End: 77-31-8793Pgljrraqsp 10MG OR TABS 08/16/2017 - 08/16/2017 Provider: LORazepam 0.5 mg oral tablet (20 sources)BenzodiazepineStart: 56-52-2873JDMtnpsia (ATIVAN) tablet 0.5 mg Start: 03-42-4439xozm 0.5 mg by mouth every six hours as needed for anxiety0.5 mg, Oral, EVERY 6 HOURS PRN, Anxiety, Starting Jenn 07/23/19 at 0839Start: 06-17-2019 End: 29-53-9986Enxxoe 1 MG Oral Tablet 07/09/2019 Provider: 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 Start: 08-93-3142xicn 0.5 mg by mouth every six hours as needed for anxiety0.5 mg, Oral, EVERY 6 HOURS PRN, Anxiety, Starting 04/21/19 at 2231Start: 04-29-2018 End: 37-85-0312MHNtuqobu 0.5MG Oral Tablet 06/27/2018 - 07/28/2018 Provider: Vahid Nagy CNPStart: 12-27-2017 End: 79-09-1361HSQcrfgzq 0.5 MG TABS 12/27/2017 - 12/27/2017 Provider:Start: 12-27-2017 End: 59-83-1426AHNlrdmxg 0.5 MG TABS 12/27/2017 - 12/27/2017 Provider:Start: 11-04-2017 End: 23-75-5094RVIabsmyf 0.5 MG TABS 11/04/2017 - 11/04/2017 Provider:Start: 10-22-2017 End: 19-49-8331VWNiklzgt 0.5 MG TABS 10/22/2017 - 10/22/2017 Provider:Start: 10-22-2017 End: 24-74-2933UJHtsrior 0.5 MG TABS 10/22/2017 - 10/22/2017 Provider:Start: 09-11-2017 End: 60-74-3838VSPzmludp 0.5 MG TABS 09/11/2017 - 09/11/2017 Provider:Start: 09-11-2017 End: 03-89-8159JDFewxyki 0.5 MG TABS 09/11/2017 - 09/11/2017 Provider:Start: 55-08-5795ebqz 1 tablet by mouth once daily as needed for anxietylorazepam 0.5 mg oral tablet 02/15/2017 take 1 tablet (0.5 mg) by oral route once daily as needed only for severe anxietyStart: 02-15-2017 End: 33-45-7064MEXepnyvf 0.5 MG TABS 02/15/2017 - 02/15/2017 Provider:Start: 01-17-2017 End: 92-85-1639DIDfmwexd 0.5 MG TABS 01/17/2017 - 01/17/2017 Provider:losartan potassium 50 mg oral tablet (20 sources)Angiotensin 2 Receptor BlockerStart: 13-18-8230ijam 100 mg by mouth once mg, oral, Daily, First dose on Sat12/31/24 at 0900, Look-alike/sound-alike medication - verify indication for use.Start: 08-13-2024 take 100 mg by mouth once afkqb772 mg, Oral, DAILY, First dose on Sat08/13/24 at 0900, Until DiscontinuedStart: 67-77-9967ygni 100 mg by mouth once belcs787 mg, Oral, DAILY, First dose on Sat08/07/24 at 0900, Until DiscontinuedStart: 26-22-5688kdjq 1 tablet by mouth in the morninglosartan (COZAAR) 100 mg tablet Take 1 tablet (100 mg total) by mouth in the morning. 09/06/2022 ActiveStart: 77-42-3826oxal 1 tablet by mouth once dailylosartan (COZAAR) 100 MG tablet Indications: Primary hypertension Take 1 tablet by mouth daily 90 tablet 1 05/21/2022 ActiveStart: 11-32-0262hodu 1 tablet by mouth once dailylosartan (COZAAR) 50 MG tablet Indications: Primary hypertension take 1 tablet by mouth once daily 30 tablet 0 12/25/2021 ActiveStart: 86-12-6046vliutmch (COZAAR) tablet 100 mgmagic (miracle) mouthwash (1 source)Start: 59-35-2527Owdgi Mouthwash (MIRACLE MOUTHWASH) (4 sources)Start: 40-61-5530dums 15 mL by mouth four times daily as neededMagic Mouthwash (MIRACLE MOUTHWASH) Indications: Mouth sore Swish and swallow 15 mLs 4 times daily as needed for Irritation Shake Well; For Oral Use. Lidocaine Viscous 2%; 80mL, Diphenhydramine 12.5MG/5Ml; 80mL, ALUM & MAG HYDROXIDE-SIMETH 200-200-20 MG/5ML; 80mL. 80 mL 07/21/2024 Activemagic mouthwash 15 mL (1 source)Start: 87-61-1437ztbcxndxy hydroxide 80 mg/ml oral suspension (1 source)Start: 38-93-8940amoa 30 mL by mouth once daily as needed for oswcwqmsygme34 mL, Oral, DAILY PRN, Constipation, Starting Sat04/21/19 [...] result continue the replacement orders as needed.Start: 50-14-7503Wommc: 90-45-3921Tkamb: 07-18-2019 End: 32-31-8043dzbpjfncw sulfate 1 g in dextrose 5% 100 mL IVPBStart: 07-17-2019 End: 67-67-6227dvvbzztqd sulfate 2 g in 50 mL IVPB premixmeclizine hydrochloride 12.5 mg oral tablet (20 sources)AntiemeticStart: 06-15-2019 End: 58-88-0844zifmkbrpm (ANTIVERT) tablet 25 mgStart: 02-20-2019 End: 79-94-6777pqpu 1 tablet by mouth three times daily as needed for dizziness meclizine (ANTIVERT) 12.5 MG tablet Take 1 tablet by mouth 3 times daily as needed for Dizziness 90tablet 0 07/25/2019 Activemelatonin 3 mg oral tablet (3 sources)Start: 77-78-0258dkmt 1 tablet by mouth once daily at bedtime melatonin 10 mg tablet Take 1 tablet by mouth once daily at bedtime. Active methocarbamol 500 mg oral tablet (20 sources)Muscle RelaxantStart: 29-62-3294dddp 750 mg by mouth four times mg, oral, 4 times daily, First dose on Sat12/31/24 at 1700, Indications: muscle spasmStart: 09-59-3672rmtt 1 tablet by mouth four times daily [...] ENING AND BEDTIME 120 tablet 11/12/2024 ActiveStart: 15-19-4649tffy 750 mg by mouth four times cinjw317 mg, Oral, 4 TIMES DAILY, First dose on Sat08/12/24 at 1700, Until DiscontinuedStart: 92-07-2865tikk 750 mg by mouth four times daily 750 mg, Oral, 4 TIMES DAILY, First dose on Jenn 25 at 1700, Until DiscontinuedStart: 46-95-7335ytvs 1 tablet by mouth four times daily [...] EVENING AND BEDTIME 120 tablet 07/27/2024 ActiveStart: 00-73-9277xxch 1 tablet by mouth four times daily at bedtimemethocarbamol (ROBAXIN) 750 MG tablet Indications: Chronic right hip pain , Lumbar back pain with radiculopathy affecting right lower extremity , Chronic left hip pain , Chronic pain syndrome , Sacral pain take 1 tablet by mouth four times a day - MORNING, NOON, EVENING AND BEDTIME 120 tablet 10/23/2023 ActiveStart: 59-31-9136jgqs 1 tablet by mouth four times dailymethocarbamol (ROBAXIN) 750 MG tablet Indications: Chronic right hip pain , Sacral pain , Lumbar back pain with radiculopathy affecting right lower extremity , Chronic left hip pain , Chronic pain syndrome Take 1 tablet by mouth 4 times daily 120 tablet 0 08/13/2022 ActiveStart: 03-11-5135bxig 1 tablet by mouth four times dailymethocarbamol (ROBAXIN) 750 MG tablet Indications: Chronic right hip pain , Sacral pain , Lumbar back pain with radiculopathy affecting right lower extremity , Chronic left hip pain , Chronic pain syndrome Take 1 tablet by mouth 4 times daily 120 tablet 0 07/10/2022 ActiveStart: 04-06-2021 End: 33-69-4683fggu 1 tablet by mouth four times dailymethocarbamol (ROBAXIN- 750) 750 MG tablet Indications: Chronic right hip pain , Muscle spasm Take 1 tablet by mouth 4 times daily for 10 days 40 tablet 0 04/06/2021 04/16/2021 ActiveStart: 01-12-2021 End: 72-75-1567ogbd 1 tablet by mouth four times daily as needed for pain methocarbamol (ROBAXIN) 500 MG tablet Take 1 tablet by mouth 4 times daily as needed (Muscle pain/spasm) 40 tablet 0 01/12/2021 01/22/2021 Active methylPREDNISolone 40 mg injection (7 sources)CorticosteroidStart: 20-71-6641ufgd 40 mg intravenously every eight hours40 mg, intravenous, Every 8 hours, First dose on Sat12/30/24 at 2200, May alter blood glucose or insulin requirements. Look-alike/sound-alike medication - verify indication for use.Start: 12-30-2024 End: 30-03-0868789 mg, intravenous, Once, On Sat12/30/24 at 1510, For 1 dose, May alter blood glucose or insulin requirements. Look-alike/sound-alike medication - verify indication for use.Start: 10-07-2019 End: 33-30-4318bpxzwrOWJAHEAlkanw sodium (SOLU-MEDROL) injection 125 mgStart: 07-18-2019 End: 23-34-2053qibnffTPFQRFUmiytw sodium (SOLU-MEDROL) injection 40 mgStart: 04-22-2019 End: 95-85-7159214 mg, Intravenous, DAILY, First dose on Sat04/22/19 at 0900 Start: 04-21-2019 End: 85-45-3147yfrrfbIIAVPMCcvjbk sodium (SOLU-MEDROL) injection 125 mg24 hr metoprolol succinate 25 mg extended release oral tablet (20 sources)beta-Adrenergic BlockerStart: 16-66-7627rzfj 25 mg by mouth once daily25 mg, oral, Daily, First dose on Sat12/31/24 at 0900, Look-alike/sound-alike medication - verify indication for use. Do not crush or chew.Start: 78-48-3568cmds 1 tablet by mouth once dailymetoprolol succinate (TOPROL XL) 25 MG extended release tablet Take 1 tablet by mouth daily 90 tablet 1 09/02/2024 ActiveStart: 61-17-8739flvo 25 mg by mouth once daily25 mg, Oral, DAILY, First dose on Sat08/13/24 at 0900, Until Discontinued, Do not crush or chew.Start: 46-83-4231cdvd 25 mg by mouth once dailyMetoprolol Succinate Active 25 MG PO Daily January 19, 2024 12:00amStart: 24-25-9486qtlm 1 tablet by mouth once dailymetoprolol succinate (TOPROL XL) 25 MG extended release tablet Take 1 tablet by mouth daily 90 tablet 1 11/04/2023 ActiveStart: 49-33-4884rqiw 1 tablet by mouth every twenty-four hours in the morningmetoprolol succinate XL (TOPROL XL) 25 mg 24 hr tablet Take 1 tablet (25 mg total) by mouth in the m orning. 30 tablet 2 09/27/2022 ActiveStart: 32-72-7180rgbq 1 tablet by mouth twice dailymetoprolol 25 MG tab regular release Take 1 tablet by mouth 2 times daily. 0 06/22/2021 ActiveStart: 15-26-5784bqdngcbqsr tartrate (LOPRESSOR) tablet 25 mgStart: 69-66-6284wgzgvprqyr (LOPRESSOR) injection 5 mgStart: 12-16-2019 End: 89-20-3363pyym 1 tablet by mouth twice dailymetoprolol tartrate (LOPRESSOR) 25 MG tablet Take 1 tablet by mouth 2 times daily 180 tablet 3 03/19/2020 ActiveStart: 06-49-1984uccp 1 tablet by mouth every twenty-four hoursMetoprolol Succinate ER 25 MG Oral Tablet Extended Release 24 Hour 09/24/2019 Provider: Start: 07-21-2019 End: 24-06-4503wvxqbmycmk tartrate (LOPRESSOR) tablet 12.5 mgStart: 07-18-2019 End: 88-83-1693zkjv 1 tablet by mouth twice dailymetoprolol tartrate (LOPRESSOR) 25 MG tablet Take 1 tablet by mouth 2 times daily 60 tablet 3 07/25/2019 Active Start: 04-16-2019 End: 15-73-1474istt 1 tablet by mouth every twenty-four hoursMetoprolol Succinate ER 100 MG Oral Tablet Extended Release 24 Hour 04/16/2019 - 09/24/2019 Provider: Vahid Nagy CNPStart: 04-29-2018 End: 34-02-4427zpgv 1 tablet by mouth every twenty-four hoursMetoprolol Succinate ER 100MG Oral Tablet Extended Release 24 Hour 04/29/2018 - 04/14/2019 Provider:Start: 04-26-2018 End: 86-58-4506Rktbmrwsah Tartrate 50 MG OR TABS 04/26/2018 - 04/26/2018 Provider: Conversion ProviderStart: 04-26-2018 End: 89-45-7016Cpojdkorjh Tartrate 25 MG OR TABS 04/26/2018 - 04/26/2018 Provider: Conversion ProviderStart: 03-17-2018 End: 93-14-0675QDNAOBMYKB SUCCINATE 100 MG [facility] 03/17/2018 - 03/17/2018 Provider:Start: 03-17-2018 End: 69-88-8767RZFRRGUHUP SUCCINATE 100MG [facility] 03/17/2018 - 03/17/2018 Provider: Start: 02-19-2017 End: 49-68-1475ZXRRGWUDXM SUCCINATE 100 MG [facility] 02/19/2017 - 02/19/2017 Provider:Start: 02-19-2017 End: 22-68-9670CDWETWOBKM SUCCINATE 100MG [facility] 02/19/2017 - 02/19/2017 Provider: Start: 02-19-2017 End: 35-97-9600ampt 100 mg by mouth once wrpax749 mg, Oral, DAILY, First dose on Sat04/22/19 at 0900 Do not crush or chew.Start: 12-14-2016 End: 88-05-1740Qhjuowrduy Tartrate 25 MG OR TABS 12/14/2016 - 12/14/2016 Provider:Start: 12-14-2016 End: 28-49-2228Wwkmdrivbi Tartrate 25 MG OR TABS 12/14/2016 - 12/14/2016 Provider:Start: 04-14-2015 End: 05-74-5849Kqxkgxyoif Tartrate 25 MG OR TABS 04/14/2015 - 04/14/2015 Provider:miconazole nitrate 0.02 mg/mg topical powder (1 source)Azole AntifungalStart: 52-57-7177afknlsnmoe (MICOTIN) 2 % powder midodrine hydrochloride 5 mg oral tablet (3 sources)alpha-Adrenergic AgonistStart: 27-35-2864rsftttriq (PROAMATINE) 5 MG tablet 08/19/2024 ActiveStart: 63-00-4404khjd 1 tablet by mouth three times daily at mealtimemidodrine (PROAMATINE) 5 MG tablet Take 1 tablet by mouth 3 times daily (with meals) 90 tablet 3 05/17/2021 ActiveMultiple Vitamin (MULTIVITAMIN) TABS tablet (1 source)Start: 07-63-3828mceb 1 tablet by mouth once dailyMultiple Vitamin (MULTIVITAMIN) TABS tablet Take 1 tablet by mouth daily 30 tablet 2 10/27/2024 Activemupirocin 0.02 mg/mg topical ointment (17 sources)RNA Synthetase Inhibitor AntibacterialStart: 06-21-5702Cixueofnx 2% External Ointment 04/12/2020 Provider: Vahid Nagy CNPStart: 04-12-2020 Mupirocin 2% External Ointment 04/12/2020 Provider: Vahid Nagy CNPStart: 08-06-2019 End: 57-44-8723Vtrnfjoua 2% External Ointment 08/06/2019 - 04/12/2020 Provider: Vahid Nagy CNPnaloxone (NARCAN) 4 mg/actuation spray,non-aerosol nasal spray (2 sources)Start: 74-21-3197urjsfvse (NARCAN) 4 mg/actuation spray,non-aerosol nasal spray Administer 1 spray (4 mg total) intoalternating nostrils as needed for opioid reversal. 1 each 12/17/2024 ActiveStart: 09-79-9781jqgdivse (NARCAN) 4 mg/actuation spray,non-aerosol nasal spray Administer 1 spray (4 mg total) intoalternating nostrils as needed for opioid reversal. 1 each 12/17/2024 naproxen 500 mg oral tablet (2 sources)Nonsteroidal Anti-inflammatory DrugStart: 37-07-5643dbvc 1 tablet by mouth twice daily as needed for painnaproxen (NAPROSYN) 500 MG tablet Take 1 tablet by mouth 2 times daily as needed for Pain 30 tablet0 07/29/2022 Jzlvun45 hr nicotine 0.875 mg/hr transdermal system (20 sources)Cholinergic Nicotinic AgonistStart: 73-52-9148tkcwh 1 dose transdermal route once daily1 patch, transdermal, Administer over 24 Hours, Daily, First dose on [facility] 12/31/24 at 1515, Remove patch prior to MRI procedure as serious lloyd may occur- patch may be reapplied. Remove previous patch, if present, before applying new.Start: 47-59-4387owmym 1 dose transdermal route once dailynicotine (NICODERM CQ) 21 MG/24HR Place 1 patch onto the skin daily 30 patch 09/08/2024 ActiveStart: 85-04-5717dzwbj 1 dose transdermal route once dailynicotine (NICODERM CQ) 21 MG/24HR Place 1 patch onto the skin daily 08/18/2024 ActiveStart: 90-25-8334itrin 1 dose transdermal route once daily nicotine (NICODERM CQ) 21 MG/24HR Place 1 patch onto the skin daily 08/18/2024 ActiveStart: 13-15-1740hhoic 1 dose transdermal route once daily at [...] to facility policy for handling and disposal.Start: 45-21-9861prwmi 1 dose transdermal route once daily at [...] policy for handling and disposal.Start: 04-27-2022 End: 89-85-4499xcxwa 1 dose transdermal route every twenty-four hoursnicotine 14 MG/24HR Patch [address] 1 patch on skin every 24 hours for 14 days. 14 patch 0 04/27/2022 05/11/2022 ActiveStart: 58-71-6803kirhl 1 dose transdermal route every twenty-four hoursnicotine 7 MG/24HR Patch [address] 1 patch on skin every 24 hours. 14 patch 0 04/27/2022 ActiveStart: 00-34-5651ulrrltky polacrilex 2 MG Gum Take 1 Each by mouth as needed for Smoking cessation. 40 Each 3 04/27/2022 ActiveStart: 33-64-6262ymwiwplj (NICODERM CQ) 7 MG/24HR Place 1 patch onto the skin daily 30 patch 3 05/18/2021 ActiveStart: 03-17-2021 nicotine (NICODERM CQ) 21 MG/24HR 1 patchStart: 66-02-2996fktoh 1 dose transdermal route once dailynicotine (NICODERM CQ) 21 MG/24HR Place 1 patch onto the skin daily 30 patch 3 02/23/2021 ActiveStart: 57-05-2795elgtkuqb (NICODERM CQ) 14 MG/24HR 1 patchStart: 09-21-2019 End: 75-05-9397kwapmisc (NICODERM CQ) 7 MG/24HR Indications: Tobacco abuse Place 1 patch onto the skin daily for 14 days 14 patch 0 09/21/2019 ActiveStart: 04-21-2019 End: 94-42-5028hcmtkpvw (NICODERM CQ) 14 MG/24HR 1 patchnitroglycerin 0.4 mg sublingual tablet (20 sources)Nitrate VasodilatorStart: 39-63-9172qijlsZAFGELLY (NITROSTAT) 0.[address] 1 tablet under the tongue every 5 minutes as needed for Chest pain up to max of 3 total doses. If no relief after 1 dose, call 911. 25 tablet 3 02/19/2024 ActiveStart: 41-59-2590kgwxkAUCHWPMN (NITROSTAT) 0.[address] 1 tablet under the tongue every 5 minutes as needed for Chest pain up to max of 3 total doses. If no relief after 1 dose, call 911. 25 tablet 3 024 ActiveStart: 52-75-5865tqgfmDOIGMSDA (NITROSTAT) 0.[address] 1 tablet under the tongue as needed for Chest pain25 tablet 3 05/09/2021 Active Start: 07-17-2019 End: 14-39-9283hprqzXKBAAOIY (NITROSTAT) 0.[address] 1 tablet under the tongue as needed for Chest pain25 tablet 3 07/25/2019 ActiveStart: 76-85-5915Hfjpdvgsc 0.4MG Sublingual Tablet Sublingual 04/29/2018 Provider: Start: 04-26-2018 End: 18-55-5045Wmiwnlqpb 0.4 MG SL SUBL 04/26/2018 - 04/26/2018 Provider: Conversion ProviderStart: 02-24-2018 End: 03-55-9011Sojopqndf 0.4MG SL SUBL 02/24/2018 - 02/24/2018 Provider:Start: 12-14-2016 End: 87-52-9423Fntvtuwry 0.4MG SL SUBL 12/14/2016 - 12/14/2016 Provider:Start: 04-14-2015 End: 08-72-7070Cxyjmaaer 0.4 MG SL SUBL 04/14/2015 - 04/14/2015 Provider: Nitrostat 0.4MG Sublingual Tablet Sublingual (2 sources)Start: 18-98-9062Qbnfwssfw 0.4MG Sublingual Tablet Sublingual 04/29/2018 Provider:Nutritional Supplements (ENSURE HIGH PROTEIN) LIQD (2 sources)Start: 06-20-2021 End: 17-18-7076ghnj 1 dose by mouth at bedtimeNutritional Supplements (ENSURE HIGH PROTEIN) LIQD Indications: Malnutrition, unspecified type (HCC) Take 1 each by mouth in the morning, at noon, and at bedtime 90 each 0 06/20/2021 07/20/2021 Activenystatin 769142 unt/ml / triamcinolone acetonide 1 mg/ml topical cream (4 sources)Polyene Antifungal, CorticosteroidStart: 38-54-8868Behonzns- Triamcinolone 518775-7.1UNIT/GM-% External Cream 09/30/2018 Provider: Vahid Nagy CNPofloxacin 3 mg/ml otic solution (2 sources)Quinolone AntimicrobialStart: 41-90-2921Jzjcxehkr 0.3% Otic Solution 04/12/2020 Provider: Vahid Nagy CNPStart: 93-96-4656Rgqoegazb 0.3% Otic Solution 04/12/2020 Provider: Vahid Nagy CNP2 ml ondansetron 2 mg/ml injection (18 sources)Serotonin-3 Receptor AntagonistStart: 99-83-7814gdij 4 mg intravenously every six hours as needed for nausea and vomiting4 mg, intravenous, Every 6 hours PRN, nausea, vomiting, Starting on Sat12/30/24 at 2153, Intravenous administration preferred to be given over 2-5 minutes.Start: 11-19-2024 End: mg, IntraVENous, ONCE, 1 dose, On Jenn 11/19/24 at 1315Start: 91-75-8780sqrc 1 tablet by mouth every eight hours as needed for nausea and vomitingondansetron ODT (ZOFRAN ODT) 4 mg disintegrating tablet Dissolve 1 tablet (4 mg total) on tongue every 8 (eight) hours as needed for nausea or vomiting. 02/06/2024 ActiveStart: 03-18-2021 End: 15-04-8466zokzenqoouj (ZOFRAN) injection 4 mgStart: 02-09-2021 End: 23-06-4327swrdbqzefjr (ZOFRAN) injection 4 mgStart: 01-17-2021 End: 06-03-3421qyvowjrripi (ZOFRAN) injection 4 mgStart: 01-12-2021 End: 61-26-0506ybtbzammtov (ZOFRAN) injection 4 mgStart: 12-04-2020 End: 24-80-2841wxvh 1 tablet by mouth every eight hours as needed for nausea ondansetron (ZOFRAN ODT) 4 MG disintegrating tablet Take 1 tablet by mouth every 8 hours as needed for Nausea or Vomiting 14 tablet 0 12/04/2020 03/17/2021 Discontinued (LIST CLEANUP)Start: mg, Intravenous, EVERY 6 HOURS PRN, Nausea, Starting Tu04/21/19 at 2231ondansetron (ZOFRAN-ODT) disintegrating tablet 4 mg (2 sources)Start: 05-69-2611zgrmwlvaeku (ZOFRAN-ODT) disintegrating tablet 4 mg Start: 70-74-6881sqyxgwudjtv (ZOFRAN-ODT) disintegrating tablet 4 mgOxygen (20 sources)OXYGEN Inhale 2 L into the lungs 0 SuspendedOXYGEN Inhale 2 L into the lungs 0 Activepantoprazole 40 mg delayed release oral tablet (14 sources)Proton Pump InhibitorStart: 62-38-158302 mg, oral, 2 times daily before meals, First dose on Sat12/31/24 at 0700, Look-alike/sound-alike m edication - verify indication for use. If patient is receiving enteral feeding, consider alternative PPI or continue IV pantoprazole until the delayed-release tablet can be taken orally, Indication: GERDStart: 29-14-6103sjgs 1 tablet by mouth in the morning, then take 1 tablet by mouth before mealtimepantoprazole (PROTONIX) 40 mg EC tablet Take 1 tablet (40 mg total) by mouth in the morning and 1 tablet (40 mg total) in the evening. Take before meals. 60 tablet 2 01/17/2024 ActiveStart: 35-11-3168viiv 1 tablet by mouth in the morning, then take 1 tablet by mouth before mealtimepantoprazole (PROTONIX) 40 mg EC tablet Take 1 tablet (40 mg total) by mouth in the morning and 1 tablet (40 mg total) in the evening. Take before meals. 60 tablet 2 01/17/2024 Activephenazopyridine hydrochloride 100 mg oral tablet (1 source)Start: 50-33-9111Teroycnd 100 MG Oral Tablet 11/16/2019 Provider: Vahid Nagy CNPStart: 01-73-9974Xoqnzeos 100 MG Oral Tablet 11/16/2019 Provider: Vahid Nagy CNPpioglitazone 45 mg oral tablet (20 sources)Peroxisome Proliferator Receptor alpha Agonist, Peroxisome Proliferator Receptor gamma Agonist, ThiazolidinedioneStart: 09-02-2024 End: 91-00-6030xtjd 1 tablet by mouth once dailypioglitazone (ACTOS) 45 MG tablet Take 1 tablet by mouth daily 90 tablet 09/02/2024 12/01/2024 ActiveStart: 48-74-8451wzts 45 mg by mouth once daily45 mg, Oral, DAILY, First dose on Jenn 08/13/24 at 0900, Until DiscontinuedStart: 75-15-4368kkae 1 tablet by mouth once dailypioglitazone (ACTOS) 15 MG tablet Indications: Type 2 diabetes mellitus with other specified complication, without long-term current use of insulin (HCC) Take 1 tablet by mouth daily 90 tablet 0 04/06/2021 ActiveStart: 45-77-9304cyulogmqhbga (ACTOS) tablet 15 mgStart: 15-76-1423Bmxdw 15 MG Oral Tablet 09/24/2019 Provider:Start: 04-14-2015 End: 10-90-1213Nzsry 15MG OR TABS 12/14/2016 - 12/14/2016 Provider:take 1 tablet by mouth once dailypioglitazone (ACTOS) 45 MG tablet Take 1 tablet by mouth daily Activepiperacillin-tazobactam (ZOSYN) 3,375 mg in dextrose 5 % 50 mL IVPB extended infusion (mini-bag) (1 source)Start: 57-32-6656lnljqihycxet-tazobactam (ZOSYN) 3,375 mg in dextrose 5 % 50 mL IVPB extended infusion (mini-bag)polyethylene glycol 3350 04659 mg powder for oral solution (4 sources)Osmotic LaxativeStart: 36-07-4580Hwcsr: 19-05-6977Dkuoc: 03-17-2020 polyethylene glycol (GLYCOLAX) packet 17 gStart: 45-67-842477 g, Oral, DAILY PRN, Constipation, Starting 07/18/19 at 0128 First [place] [address] unt/ml / trimethoprim 1 mg/ml ophthalmic solution (20 sources)Dihydrofolate Reductase Inhibitor Antibacterial, Polymyxin-class AntibacterialStart: 09-02-2024 End: 25-46-0354cimq 1 drop(s) into the eye(s) every four hourstrimethoprim- polymyxin b (POLYTRIM) 25736-3.1 UNIT/ML-% ophthalmic solution Place 1 drop into both eyes every 4 hours for 10 days 10 mL 09/02/2024 09/12/2024 ActiveStart: 03-03-2019 End: 66-00-0273Nvhlttago B-Trimethoprim 07021-2.1 UNIT/ML-% Ophthalmic Solution 03/03/2019 - 09/24/2019 Provider: Elena Malik CNPmicroencapsulated potassium chloride 20 meq extended release oral tablet (14 sources)Start: mEq, oral, Daily, First dose on Jenn 12/31/24 at 1115, Do not crush or chew.Start: 18-05-9889abztzaqiw chloride (K-TAB,KLOR-CON) CR tablet 30-50 mEqStart: 15-65-0090xenxnchzr chloride (KLOR-CON M) extended release tablet 40 mEqStart: 40-96-9012tozcunpcj chloride (KLOR-CON M) extended release tablet 40 mEqStart: 02-06-2024 End: 43-55-3742qhic 1 dose by mouth in the morningpotassium chloride (KLOR-CON) 20 mEq packet Take 1 packet (20 mEq total) by mouth in the morning and 1 packet (20 mEq total) before bedtime. 02/06/2024 ActiveStart: 32-35-7856gkyp 20 mEq by mouth twice dailypotassium chloride (KLOR-CON) 20 MEQ packet Take 20 mEq by mouth 2 times daily 180 each 3 04/24/2023 ActiveStart: 07-25-2019 End: 09-76-7377mbhkvwxpz chloride (KLOR-CON M) extended release tablet 40 mEq Start: 07-21-2019 End: 97-59-0771hrtmqrfpj chloride (KLOR-CON M) extended release tablet 40 mEq Start: 07-18-2019 End: 44-41-0804envjvvjnq chloride 20 mEq/50 mL IVPB (Central Line)povidone- iodine 100 mg/ml topical spray (3 sources)AntisepticStart: 08-10-2024 End: 57-76-0982scwwf 1 dose topically once dailyTopical, DAILY, First dose on Jenn 08/13/24 at 2200, To wounds of feet and toespredniSONE 20 mg oral tablet (20 sources)CorticosteroidStart: 11-19-2024 End: 31-42-8605sucz 1 tablet by mouth twice dailypredniSONE (DELTASONE) 20 MG tablet Take 1 tablet by mouth 2 times daily for 5 days 10 tablet 11/19/2024 11/24/2024 ActiveStart: 97-08-6525fpfnkdMBJT (DELTASONE) 10 mg tablet 40 mg for 5 days, 30 mg for 4, 20 mg for 3, 10 mg for 2, then stop 40 tablet 10/23/2022 SuspendedStart: 08-13-2022 End: 67-74-6954kfxy 1 tablet by mouth twice dailypredniSONE (DELTASONE) 20 MG tablet Indications: Chronic obstructive pulmonary disease, unspecifiedCOPD type (HCC) Take 1 tablet by mouth 2 times daily for 5 days 10 tablet 0 08/13/2022 08/18/2022 ActiveStart: 03-13-2020 End: 26-93-3898ejmw 1 tablet by mouth twice dailypredniSONE (DELTASONE) 20 MG tablet Take 1 tablet by mouth 2 times daily for 5 days 10 tablet 0 03/13/2020 03/19/2020 Discontinued (Stop Taking at Discharge)Start: 03-13-2020 End: 75-00-7924vqzgnkXGXA (DELTASONE) tablet 40 mgStart: 13-62-7679uqdditXVAQ 20 MG Oral Tablet 09/24/2019 Provider: Shawna Holliday CNPStart: 08-13-2019 End: 41-50-2513wzdjurKHPV 20 MG Oral Tablet 09/09/2019 - 09/15/2019 Provider: Vahid Nagy CNPStart: 08-04-2019 End: 39-52-2357djgxhfWBJC 20 MG Oral Tablet 08/04/2019 - 07/30/2019 Provider: Vahid Nagy CNPStart: 08-04-2019 End: 82-55-8817tcghqyMOGY 20 MG Oral Tablet 08/04/2019 - 07/30/2019 Provider: Vahid Nagy CNPStart: 08-04-2019 End: 60-72-4097ifrbvmDYJO 20 MG Oral Tablet 08/04/2019 - 07/30/2019 Provider: Vahid Nagy CNPStart: 08-04-2019 End: 25-06-0206ucipnvGEZZ 20 MG Oral Tablet 08/04/2019 - 07/30/2019 Provider: Vahid Nagy CNPStart: 08-04-2019 End: 93-28-5470irtrdlRRHM 20 MG Oral Tablet 08/04/2019 - 07/30/2019 Provider: Vahid Nagy CNPStart: 08-04-2019 End: 78-16-5821jatuqoLIDN 20 MG Oral Tablet 08/04/2019 - 07/30/2019 Provider: Vahid Nagy CNPStart: 08-04-2019 End: 83-77-0771bdsinkUKGO 20 MG Oral Tablet 08/04/2019 - 07/30/2019 Provider: Vahid Nagy CNPStart: 08-04-2019 End: 69-02-3541tcynayKGNN 20 MG Oral Tablet 08/04/2019 - 07/30/2019 Provider: Vahid Nagy CNPStart: 08-04-2019 End: 84-19-3538ugrptjDJKI 20 MG Oral Tablet 08/04/2019 - 07/30/2019 Provider: Vahid Nagy CNPStart: 08-04-2019 End: 12-75-6598toebjuHWEI 20 MG Oral Tablet 08/04/2019 - 07/30/2019 Provider: Vahid Nagy CNPStart: 08-04-2019 End: 01-61-0766mrfxqfXWRA 20 MG Oral Tablet 08/04/2019 - 07/30/2019 Provider: Vahid Nagy CNPStart: 08-04-2019 End: 21-70-0879fhtfbgQQBQ 20 MG Oral Tablet 08/04/2019 - 07/30/2019 Provider: Vahid Nagy CNPStart: 08-04-2019 End: 92-93-7280bqgwkyOUNQ 20 MG Oral Tablet 08/04/2019 - 07/30/2019 Provider: Vahid Nagy CNPStart: 08-04-2019 End: 93-56-7916rxeiswCPPC 20 MG Oral Tablet 08/04/2019 - 07/30/2019 Provider: Vahid Nagy CNPStart: 08-04-2019 End: 72-38-4817nibnjuSCTO 20 MG Oral Tablet 08/04/2019 - 07/30/2019 Provider: Vahid Nagy CNPStart: 07-23-2019 End: 38-09-7324fugfqxSVVM (DELTASONE) tablet 40 mgStart: 06-17-2019 End: 78-82-7988eazqdpKKRZ 20 MG Oral Tablet 06/17/2019 - 07/30/2019 Provider: Vahid Nagy CNPStart: 16-25-8993ispyfeAKRW 20 MG Oral Tablet 03/20/2019 Provider: Vahid Nagy CNPStart: 86-82-9108ttkihnRRJK 20 MG Oral Tablet 03/20/2019 Provider: Vahid Nagy CNPStart: 10-30-2018 End: 45-77-5553qwtoxkCNLS 20 MG Oral Tablet 12/11/2018 Provider: Vahid Nagy CNPStart: 02-27-2018 End: 87-31-8013filjbaEPIV 20 MG OR TABS 02/27/2018 - 02/27/2018 Provider:Start: 08-09-2017 End: 59-28-0518idagmgOJWU 20MG OR TABS 08/09/2017 - 08/09/2017 Provider:take 1 tablet by mouth in the morningpredniSONE (DELTASONE) 10 mg tablet Take 1 tablet (10 mg total) by mouth in the morning. ActiveProAir HFA 108 (90 Base)MCG/ACT Inhalation Aerosol Solution (2 sources)Start: 58-10-0088FllEhm HFA 108 (90 Base)MCG/ACT Inhalation Aerosol Solution 04/29/2018 Provider:Promethazine (2 sources)PhenothiazineStart: 45-95-7951kgbnaveewkvs (PHENERGAN) tablet 12.5 mg Start: 73-63-5780twcpnnzsxqgw (PHENERGAN) tablet 12.5 mgPulse Oximeter For Finger Miscellaneous (15 sources)Start: 69-25-4499Icqnd Oximeter For Finger Miscellaneous 07/30/2019 Provider: Vahid Angelita CNPPulse Oximeter For Finger Miscellaneous (1 source)Start: 62-69-3683Ylczn Oximeter For Finger Miscellaneous 07/30/2019 Provider: Vahid Nagy CNPQUEtiapine 25 mg oral tablet (10 sources)Atypical AntipsychoticStart: 04-33-6022semd 25 mg by mouth once daily25 mg, oral, Nightly, First dose on Sat12/30/24 at 2215, Look-alike/sound-alike medication - verifyindication for use.Start: 03-29-2024 End: 74-15-5203hjxw 1 tablet by mouth once daily for anxietyQUEtiapine (SEROquel) 25 mg tablet Take 1 tablet (25 mg total) by mouth nightly. For anxiety 03/29/2024 ActiveStart: 01-19-2024 End: 65-79-6700ghsj 1 tablet by mouth once dailyQuetiapine (Seroquel) 25 mg tablet Discontinued 25 MG PO Daily January 19, 2024 12:00am January 23, 2024 3:47pmStart: 28-69-2743dqsn 1 tablet by mouth at bedtimeQUEtiapine (SEROQUEL) 25 MG tablet Take 1 tablet by mouth at bedtime 30 tablet 10/18/2023 ActiveQvar RediHaler 80MCG/ACT Inhalation Aerosol Breath Activated (2 sources)Start: 09-25-5264Wvny RediHaler 80MCG/ACT Inhalation Aerosol Breath Activated 04/29/2018 Provider:rosuvastatin calcium 10 mg oral tablet (1 source)HMG-CoA Reductase InhibitorStart: 24-40-7768fjni 5 mg by mouth once daily5 mg, oral, Nightly, First dose on Sat12/31/24 at 2200, Look-alike/sound-alike medication - verify indication for use.sertraline 50 mg oral tablet (20 sources)Serotonin Reuptake InhibitorStart: 30-79-9696ncsx 1 tablet by mouth once dailysertraline (ZOLOFT) 50 MG tablet Indications: Depression, unspecified depression type Take 1 tabletby mouth daily 90 tablet 0 11/23/2021 ActiveStart: 08-26-2019 End: 33-82-8517Ysathjoxot HCl 100 MG Oral Tablet 04/11/2020 Provider: Vahid Nagy CNPStart: 82-18-3367nycf 50 mg by mouth once daily50 mg, Oral, DAILY, First dose on Sat04/22/19 at 0900Start: 04-14-2019 End: 10-47-9889Gylkhc 50 MG Oral Tablet 07/09/2019 - 08/26/2019 Provider: Vahid Nagy CNPStart: 04-26-2018 End: 80-01-6910XTVSMFETUY 100 MG [facility] [place] 04/26/2018 - 04/26/2018 Provider:Start: 04-26-2018 End: 56-52-0190JNPVTXFYTT 100MG [facility] [place] 04/26/2018 - 04/26/2018 Provider: End: 79-09-8907kqyl 1 tablet by mouth once dailysertraline 100 mg oral tablet 12/14/2016 take 1 tablet (100 mg) by oral route once iewwc7210 ml sodium chloride 9 mg/ml injection (20 sources)Start: 21-54-1261iiuo 20 mL intravenously every hour as btebxu61 mL/hr, intravenous, Continuous PRN, to maintain patency of lines, Starting on Sat12/30/24 at 2153Start: 36-40-4145rebm 25 mL intravenously every hour as mL, intravenous, at 100 mL/hr, Administer over 15 Minutes, As needed, line care, line care afterIVPB administration, Starting on Sat12/30/24 at 2153 Start: 70-60-428592 mL, intravenous, As needed, line care, Starting on Sat12/30/24 at 1547Start: 12-30-2024 End: 33-71-379285 mL, intravenous, Once in imaging, pre/post contrast, Starting on Sat12/30/24 at 1547, For 1 doseStart: 08-01-3541IlopqJZIcdd, at 100 mL/hr, CONTINUOUS, Starting on Sat11/19/24 at 1230Start: 63-48-953900 mL, IntraVENous, EVERY 12 HOURS SCHEDULED (2 times per day), First dose on Sat08/12/24 at 2100, U ntil DiscontinuedStart: 24-48-1614Fuzsu: 59-10-2226Ijzqb: -40 mL, IntraVENous, EVERY 12 HOURS SCHEDULED [...] Central Line = 20 mL/lumenStart: 08-06-2024 End: 45-08-9247MdxykRUKlbb, at 75 mL/hr, CONTINUOUS, Starting on Jenn [...] 12-04-2020 End: 10.9 % sodium chloride bolusStart: 17-74-437154 mL, Intravenous, EVERY 12 HOURS SCHEDULED (2 times per day), First dose on Sat03/18/20 at 2100, Recovery(Cath)Start: 02-07-0219brns 10 mL intravenous route once10 mL, Intravenous, PRN, Line Care, Starting Sat03/18/20 at 1350 After every IV line use Recovery(Cath)Start: 76-24-6922upgemk chloride flush 0.9 % injection 10 mL Start: .9 % sodium chloride infusionStart: .9 % sodium chloride infusionStart: 77-22-270219 mL, Intravenous, EVERY 12 HOURS SCHEDULED (2 times per day), First dose on 07/18/19 at 0900Start: 86-84-8160ypth 10 mL intravenous route once as qfpypr17 mL, Intravenous, PRN, Line Care, After every IV line use, Starting Sat07/18/19 at 0128Start: 07-18-2019 End: .9 % sodium chloride infusionStart: 07-17-2019 End: .9 % sodium chloride bolusStart: 04-21-2019 End: 60-74-6561Znqtipjgtmb, at 75 mL/hr, CONTINUOUS, Starting Tu04/21/19 at 2300Start: 04-21-2019 End: .9 % sodium chloride bolusStart: 02-23-2019 End: .9 % sodium chloride bolusStart: 01-13-2019 End: .9 % sodium chloride bolusSucralfate (Carafate) 100 mg/mL suspension (2 sources)Start: 03-75-1795evpj 1 mL by mouth every six hoursSucralfate (Carafate) 100 mg/mL suspension Active 10 ML PO Every 6 hours January 19, 2024 12:00amsulfamethoxazole 800 mg / trimethoprim 160 mg oral tablet (5 sources)Dihydrofolate Reductase Inhibitor Antibacterial, Sulfonamide AntimicrobialStart: 36-68-6634stllicdqvbdgcmlx-trimethoprim (BACTRIM DS;SEPTRA DS) 800-160 MG per tablet 1 tabletStart: 02-12-2020 End: 37-42-7817ctrc 1 tablet by mouth twice dailysulfamethoxazole-trimethoprim (BACTRIM DS) 800-160 MG per tablet Take 1 tablet by mouth 2 times daily for 7 days 14 tablet 0 02/12/2020 02/19/2020 ActiveStart: 66-38-6740Njatfvm DS 800-160 MG Oral Tablet 12/11/2018 Provider: Vahid Nagy CNPsuvorexant 5 mg oral tablet (1 source)Orexin Receptor AntagonistStart: 11-16-2024 End: 35-92-5257yzzu 1 tablet by mouth once daily at bedtimeSuvorexant (BELSOMRA) 5 MG TABS Indications: Insomnia, unspecified type Take 1 tablet by mouth at be dtinh for 30 days. Max Daily Amount: 5 mg 30 tablet 11/16/2024 12/16/2024 Active levothyroxine sodium 0.075 mg oral tablet (20 sources)l-ThyroxineStart: 84-35-3259mijk 150 ug by mouth before pfdopcjkh650 mcg, oral, Before breakfast, First dose on [...] APPLY TO NEONATESMonitor thyroid function tests weeklyStart: 56-62-1279cnlf 1 tablet by mouth once daily in the morninglevothyroxine (SYNTHROID) 150 MCG tablet Indications: Hypothyroidism, unspecified type Take 1 tablet by mouth every morning 90 tablet 1 06/24/2024 ActiveStart: 63-02-4952kzcl 1 tablet by mouth once dailyLevothyroxine (Synthroid) 150 mcg tablet Active 150 MCG PO Daily January 19, 2024 12:00amStart: 70-66-7882ubmb 1 tablet by mouth once daily in the morninglevothyroxine (SYNTHROID) 150 MCG tablet Indications: Hypothyroidism, unspecified type Take 1 tablet by mouth every morning 90 tablet 06/10/2023 ActiveStart: 98-87-2132usvd 1 tablet by mouth in the morninglevothyroxine (SYNTHROID) 150 MCG tablet Indications: Hypothyroidism, unspecified type Take 1 tablet by mouth in the morning. 90 tablet 1 11/13/2021 ActiveStart: 07-26-2019 End: 25-75-5169fuuprhteopsgd (SYNTHROID) tablet 150 mcgStart: 07-26-2019 End: 57-36-6612bcen 1 tablet by mouth once dailylevothyroxine (SYNTHROID) 150 MCG tablet Take 1 tablet by mouth daily 30 tablet 3 07/26/2019 ActiveStart: 66-46-4438rpum 150 ug by mouth once mcg, Oral, DAILY, First dose on 07/18/19 at 0900 Tube feeding (TF) interaction, obtain physician order to manage, recommend holding TF for 30 minutes before and after dose.Start: 34-29-6539mrrh 1 tablet by mouth once dailylevothyroxine (SYNTHROID) 150 MCG tablet Take 1 tablet by mouth daily 30 tablet 3 07/26/2019 ActiveStart: 04-29-2018 End: 63-38-2098Oaimfsnclutlw Sodium 112MCG Oral Tablet 08/27/2018 Provider: Vahid Nagy CNPStart: 04-26-2018 End: 34-61-5829KROTLMRSIWMHR 150 MCG [facility] [place] 04/26/2018 - 04/26/2018 Provider: Start: 04-26-2018 End: 07-87-8725CPIDQFJEOXDGI 150MCG [facility] [place] 04/26/2018 - 04/26/2018 Provider:Start: 12-14-2016 End: 08-00-8900XODPQXEQVMPOB 112 MCG [facility] [place] 12/14/2016 - 12/14/2016 Provider: Start: 12-14-2016 End: 40-32-2306FDNKKDZDKKLEJ 112MCG [facility] [place] 12/14/2016 - 12/14/2016 Provider:Start: 82-50-7369kwpo 1 tablet by mouth once dailylevothyroxine 112 mcg oral tablet 12/14/2016 take 1 tablet (112 mcg) by oral route once dailyStart: 04-14-2015 End: 02-93-7353FZCUEKWPDHEUR 112 MCG [facility] [place] 04/14/2015 - 04/14/2015 Provider: Start: 04-14-2015 End: 69-93-5492JKXZFQNYEGLIN 112MCG [facility] [place] 04/14/2015 - 04/14/2015 Provider:Start: 03-14-2015 End: 09-62-6454XYAGNAYMCCQSO 112 MCG [facility] 03/14/2015 - 03/14/2015 Provider: Start: 03-14-2015 End: 49-70-0139KPODENJZRZGBX 112MCG [facility] [place] 03/14/2015 - 03/14/2015 Provider: tiZANidine 4 mg oral tablet (20 sources)Central alpha-2 Adrenergic AgonistStart: 10-30-2018 End: 88-44-9279hdXWSqjhvt (ZANAFLEX) tablet 4 mgStart: 04-10-2017 End: 29-73-9383Pbaqtmvb 4MG OR TABS 04/10/2017 - 04/10/2017 Provider:Start: 12-14-2016 End: 09-84-0804dnit 1 tablet by mouth every six hours as neededtiZANidine (ZANAFLEX) 4 MG tablet Take 1 tablet by mouth every 6 hours as needed (cramps) 90 tablet0 07/25/2019 ActiveStart: 12-14-2016 End: 70-57-4467Dimxzjfm 4 MG OR TABS 12/14/2016 - 12/14/2016 Provider:traMADol hydrochloride 50 mg oral tablet (1 source)Opioid AgonistStart: 03-21-2020 End: 28-54-9989jzcy 1 tablet by mouth every four hours [...] 03/24/2020 ActiveTrue Metrix Meter Device (20 sources)Start: 77-94-1499Feiy Metrix Meter Device 08/12/2019 Provider: Vahid Nagy CNPStart: 05-07-2018 End: 71-47-4948Jwwo Metrix Meter Device 05/07/2018 - 08/12/2019 Provider: Vahid Nagy CNPStart: 99-68-0833Agob Metrix Meter Device 05/07/2018 Provider: Vahid Nagy CNPStart: 14-76-7919Vdfw Metrix Meter Device 04/29/2018 Provider:True Metrix Meter Device (10 sources)Start: 02-70-6086Kice Metrix Meter Device 08/12/2019 Provider: Vahid Nagy CNPStart: 05-07-2018 End: 52-99-7505Xvub Metrix Meter Device 05/07/2018 - 08/12/2019 Provider: Vahid Nagy CNPStart: 02-29-0633Gvki Metrix Meter Device 05/07/2018 Provider: Vahid Nagy CNPStart: 15-23-4534Zpwx Metrix Meter Device 04/29/2018 Provider: varenicline 0.5 mg oral tablet (4 sources)Partial Cholinergic Nicotinic AgonistStart: 51-50-9765Wblwhjb Starting Month Jose 0.5 MG X 11 &1 MG X 42 Oral Tablet 04/29/2018 Provider:24 hr venlafaxine 75 mg extended release oral capsule (14 sources)Serotonin and Norepinephrine Reuptake InhibitorStart: 72-42-3218ahdo 150 mg by mouth once gwkor576 mg, oral, Daily, First dose on Jenn 12/31/24 at 1515, Look-alike/sound-alike medication - verify indication for use. Do not crush or chew.Start: 10-70-9836ilgo 75 mg by mouth once daily75 mg, oral, Daily, First dose on Jenn 12/31/24 at 1515, Look-alike/sound-alike medication - verify indication for use. Do not crush or chew.Start: 53-84-1289nswt 1 capsule by mouth every twenty-four hours in the morningvenlafaxine XR (EFFEXOR-XR) 150 mg 24 hr capsule Take 1 capsule (150 mg total) by mouth in the morning. 02/06/2024 ActiveStart: 36-49-6418rzkn 1 capsule by mouth every twenty-four hours in the morningvenlafaxine XR (EFFEXOR XR) 75 mg 24 hr capsule Take 1 capsule (75 mg total) by mouth in the morning. 02/06/2024 ActiveStart: 38-68-7975oxdy 1 capsule by mouth once dailyvenlafaxine (EFFEXOR XR) 150 MG extended release capsule Indications: Anxiety take 1 capsule by mouth once daily 90 capsule 09/02/2023 ActiveStart: 34-87-0153rkoe 1 capsule by mouth once dailyvenlafaxine (EFFEXOR XR) 75 MG extended release capsule Indications: Anxiety Take 1 capsule by mouth daily 90 capsule 1 06/17/2023 ActiveWalker Miscellaneous (15 sources)Start: 47-51-3211Xzobxu Miscellaneous 07/30/2019 Provider: Vahid Goreker Miscellaneous (1 source)Start: 74-61-5632Cfsbiu Miscellaneous 07/30/2019 Provider: Vahid Nagy CNPzinc sulfate 220 mg oral capsule (2 sources)Start: 38-77-1791dgsd 1 capsule by mouth once dailyzinc sulfate (ZINCATE) 220 (50 Zn) MG 220 mg capsule - elemental zinc Take 1 capsule by mouth dailyfor 11 doses 10/27/2024 ActiveStart: 14-96-9955nhaq 1 capsule by mouth once dailyzinc sulfate (ZINCATE) 220 (50 Zn) MG capsule Take 1 capsule by mouth daily for 7 days 7 capsule 0 04/23/2021 Activezolpidem tartrate 10 mg oral tablet (20 sources)gamma-Aminobutyric Acid-ergic AgonistStart: 09-02-2024 End: 09-15-6480coai 0.5 tablet by mouth once daily as needed for sleepzolpidem (AMBIEN) 10 MG tablet Indications: Insomnia, unspecified type Take 0.5 tablets by mouth nightly as needed for Sleep for up to 90 days. Max Daily Amount: 5 mg 90 tablet 11/16/2024 02/14/2025 ActiveStart: 07-27-2024 End: 28-00-5868nylc 10 mg by mouth once daily as umzwlb59 mg, Oral, NIGHTLY PRN, Starting on Sat08/12/24 at 1527, Until Discontinued, SleepStart: 62-23-1981sego 1 tablet by mouth at bedtimezolpidem 5 MG tablet Take 5 mg by mouth at bedtime. 0 06/22/2021 ActiveStart: 39-02-7283Wsyqoi 5 MG Oral Tablet 04/12/2020 Provider: Vahid Nagy CNPStart: 36-58-4092Bszgbm 5 MG Oral Tablet 04/12/2020 Provider: Vahid Nagy CNPStart: 04-29-2018 End: 70-83-2703Ryrvck 5MG Oral Tablet 04/29/2018 - 06/27/2018 Provider:Start: 02-10-2018 End: 56-22-4578Qsqetz 5 MG OR TABS 02/10/2018 - 02/10/2018 Provider:Start: 08-06-2017 End: 38-27-0105Iceuur 5MG OR TABS 08/06/2017 - 08/06/2017 Provider: Completed/Discontinued Medications MedicationDrug Class(es)DatesSig (Normalized)Sig (Original)acetaminophen 325 mg / HYDROcodone bitartrate 5 mg oral tablet (20 sources)Opioid AgonistStart: 01-20-2024 End: 09-93-3476teir 1 tablet by mouth three times dailyHydrocodone-Acetaminophen Discontinued 1 TAB PO Three times daily January 20, 2024 12:00am January 23, 2024 3:47pmStart: 02-09-2021 End: 26-42-4745TTSJZwrjhni-acetaminophen (NORCO) 5-325 MG per tablet 1 tablet Start: 04-12-2019 End: 85-69-3615YKEUXrwamad-acetaminophen (NORCO) 5-325 MG per tablet 2 tablet Start: 99-85-5453ixwrojmwsqz-acetaminophen (NORCO) tablet 5-325 mg (STARTER PACK)Start: 04-26-2018 End: 91-25-4340KEVWDucsmqi-Acetaminophen 5-325 MG OR TABS 04/26/2018 - 04/26/2018 Provider: Conversion ProviderStart: 96-44-8334juzq 1 tablet by mouth every four hours as neededhydrocodone-acetaminophen 5-325 mg oral tablet 10/10/2017 take 1 tablet (5/325mg) by oral route q 4 hrs prn for pain(M79.606, M54.16) for 7 days changing back to oxycodoneStart: 10-10-2017 End: 41-51-1994FLSWYbbkwgj-Acetaminophen 5-325 MG OR TABS 10/10/2017 - 10/10/2017 Provider:Start: 09-11-2017 End: 29-71-6098VTNKYkcricf-Acetaminophen 5-325 MG OR TABS 09/11/2017 - 09/11/2017 Provider:Start: 44-43-4299jhqy 1 tablet by mouth every eight hours as needed for painhydrocodone-acetaminophen 5-325 mg oral tablet 09/11/2017 take 1 tablet (5/325mg) by oral route every 8 hours as needed for severe chronic lumbar pain (M79.606, M54.16) for 30 day supplyStart: 08-16-2017 End: 06-02-0278VIMWEalespc-Acetaminophen 5-325 MG OR TABS 08/16/2017 - 08/16/2017 Provider:Start: 07-29-2017 End: 24-01-2027MFPUKgksbkm-Acetaminophen 5-325 MG OR TABS 07/29/2017 - 07/29/2017 Provider:[id number] 200 actuat albuterol 0.09 mg/actuat metered dose inhaler (20 sources)beta2-Adrenergic AgonistStart: 90-38-0156ecif 2 puff(s) by inhalation three times daily2 puff, Inhalation, 3 TIMES DAILY RESP, First dose (after last modification) on Sat08/12/24 at 1630, Until Discontinued, Initiate RT Bronchodilator Protocol: Yes - Inpatient ProtocolStart: 75-20-1558hcbibgbqp (PROVENTIL HFA;VENTOLIN HFA) 90 mcg/actuation inhaler Take [...] for wheezing 8.5 g 5 02/06/2024 ActiveStart: 42-63-5013wtzp 2 puff(s) by mouth four times daily as neededalbuterol (PROVENTIL HFA;VENTOLIN HFA) 90 mcg/actuation inhaler Take 2 puffs by mouth 4 (four) times a day as needed. 02/06/2024 ActiveStart: 43-43-5009bdhn 2 puff(s) by mouth four times daily for wheezingalbuterol sulfate HFA (PROVENTIL;VENTOLIN;PROAIR) 108 (90 Base) MCG/ACT inhaler inhale 2 puffs by mouth and INTO THE LUNGS four times a day if needed for wheezing 8.5 g 5 08/13/2023 ActiveStart: 58-22-2531uezc 2.5 mg by inhalation every six hours as needed for wheezing and chronic obstructive pulmonary disease and chronic obstructive pulmonary diseasealbuterol (PROVENTIL,VENTOLIN) 2.5 mg /3 mL (0.083 %) nebulizer solution Indications: Chronic obstructive pulmonary disease, unspecified COPD type ([facility]) Inhale 3 mL (2.5 mg total) by nebulizationevery 6 (six) hours as needed for wheezing. 75 mL 03/18/2024Start: 48-37-8575pfasifrin (PROVENTIL) (2.5 MG/3ML) 0.083% nebulizer solution Take 3 mLs by nebulization every 6 hours as needed for Wheezing or Shortness of Breath 1 each 5 05/09/2021 ActiveStart: 03-17-20202.5 mg, Nebulization, EVERY 6 HOURS PRN, Wheezing, Starting Jenn 03/17/20 at 2040Start: 21-94-0496czkyjxzuv (PROVENTIL) nebulizer solution 2.5 mgStart: 04-26-2019 End: 55-48-7531cgtrncvdg (PROVENTIL) (2.5 MG/3ML) 0.083% nebulizer solution Take 3 mLs by nebulization every 6 hours as needed for Wheezing 100 vial 0 07/25/2019 ActiveStart: 03-78-2683oxccokbnq (PROVENTIL) nebulizer solution 0.63 mgStart: 10-69-4968quhhcwtvh (PROVENTIL) nebulizer solution 2.5 mgStart: 06-09-2018 End: 22-74-1941ashfyhdcx (ACCUNEB) 0.63 MG/3ML nebulizer solution Take 3 mLs by nebulization 3 times daily 270 mL 0 06/09/2018 04/26/2019 Discontinued (Stop Taking at Discharge)Start: 04-29-2018 End: 84-97-6245Ekmzevpfp Sulfate (2.5 MG/3ML)0.083% Inhalation Nebulization solution 06/10/2018 Provider: Vahid Nagy CNPStart: 04-29-2018 End: 21-71-5637OyiBls HFA 108 (90 Base) MCG/ACT Inhalation Aerosol Solution 04/14/2019 Provider: Vahid Nagy CNPStart: 04-29-2018 End: 55-41-5594SodPou HFA 108 (90 Base) MCG/ACT Inhalation Aerosol Solution 04/14/2019 Provider: Vahid Nagy CNPStart: 04-26-2018 End: 43-60-5963WYGNHPURW SULFATE 2.5 mg /3 ML (0.0 MISC 04/26/2018 - 04/26/2018 Provider:Start: 04-26-2018 End: 99-01-5220VJDEFNHDY SULFATE 2.5 mg/3 ML (0.0 MIS 04/26/2018 - 04/26/2018 Provider:Start: 82-32-0322vjje 1-2 puff(s) by inhalation every six hours as needed for wheezingProAir HFA 90 mcg/actuation inhalation HFA aerosol inhaler 09/11/2017 inhale 1 - 2 puffs (90 - 180 mcg) by inhalation route every 6 hours as needed for wheezing/ shortness of breathStart: 09-11-2017 End: 95-05-2437UKPQII HFA 90MCG/ACTUAT MISC 09/11/2017 - 09/11/2017 Provider: Start: 09-13-4078jujm 1-2 puff(s) by inhalation every six hours as needed for wheezingProAir HFA 90 mcg/actuation inhalation HFA aerosol inhaler 09/11/2017 inhale 1 - 2 puffs (90 - 180 mcg) by inhalation route every 6 hours as needed for wheezing/ shortness of breathStart: 72-78-8759pkus 1-2 puff(s) by inhalation every six hours as needed for wheezingProAir HFA 90 mcg/actuation inhalation HFA aerosol inhaler 09/11/2017 inhale 1 - 2 puffs (90 - 180 mcg) by inhalation route every 6 hours as needed for wheezing/ shortness of breathStart: 12-14-2016 End: 58-14-2839SCTLZSQAV SULFATE 2.5 mg /3 ML (0.0 [facility] 12/14/2016 - 12/14/2016 Provider:Start: 12-14-2016 End: 47-30-7546BGILQRGLE SULFATE 2.5 mg/3 ML (0.0 [facility] 12/14/2016 - 12/14/2016 Provider:Start: 69-67-1707ocuw 3 mL by inhalation four times daily as needed albuterol sulfate 2.5 mg /3 mL (0.083 %) inhalation solution for nebulization 12/14/2016 inhale 3 milliliters (2.5 mg) by nebulization route 4 times per day as neededStart: 09-08-2016 End: 27-87-9689gcgpwtwbg (PROVENTIL) (5 MG/ML) 0.5% nebulizer solution Take 0.5 mLs by nebulization every 6 hours as needed for Wheezing 30 vial 0 09/08/2016 04/26/2019 Discontinued (Stop Taking at Discharge)Start: 04-14-2015 End: 54-53-7269IFCJWEUEY SULFATE 2.5 mg /3 ML (0.0 MISC 04/14/2015 - 04/14/2015 Provider:Start: 04-14-2015 End: 66-12-3227HIPAXCTTV SULFATE 2.5 mg/3 ML (0.0 MISC 04/14/2015 - 04/14/2015 Provider:take 2.5 mg by inhalation every two hours as needed for wheezing albuterol (PROVENTIL,VENTOLIN) 2.5 mg /3 mL (0.083 %) nebulizer solution Inhale 3 mL (2.5 mg total)by nebulization every 2 (two) hours as needed for wheezing. Q2hr prn via neb shortness of breath ActiveALCOHOL PREP PADS MISC (20 sources)Start: 12-14-2016 End: 82-49-7149TNVBPZF PREP PADS MISC 12/14/2016 - 12/14/2016 Provider:ALCOHOL PREP PADS MISC (10 sources)Start: 12-14-2016 End: 39-32-1548VCOZQLF PREP PADS MISC 12/14/2016 - 12/14/2016 Provider: ALPRAZolam 0.5 mg oral tablet (20 sources)BenzodiazepineStart: 04-26-2018 End: 22-53-6394NAGABSyckx 0.5 MG OR TABS 04/26/2018 - 04/26/2018 Provider: Conversion Provider End: 71-37-9683kncuqonsvd 0.5 mg oral tablet 12/14/2016Aspir-81 OR TBEC (1 source)Start: 04-26-2018 End: 93-96-3754Vwcyb-81 OR TBEC 04/26/2018 - 04/26/2018 Provider: Conversion ProviderAspirin 81 OR TBEC (4 sources)Start: 04-26-2018 End: 00-73-2910Xembcpr 81 OR TBEC 04/26/2018 - 04/26/2018 Provider: Conversion Provideratorvastatin 40 mg oral tablet (20 sources)HMG-CoA Reductase InhibitorStart: 02-25-2018 End: 43-31-2311Djufmnz 40MG OR TABS 04/26/2018 - 04/26/2018 Provider: Conversion ProviderBD Thermometer Miscellaneous (18 sources)Start: 05-01-2019 End: 82-06-9201IR Thermometer Miscellaneous 05/01/2019 - 09/24/2019 Provider: Vahid Nagy CNPStart: 66-11-7069HY Thermometer Miscellaneous 05/01/2019 Provider: Vahid CASTANEDA Thermometer Miscellaneous (1 source)Start: 05-01-2019 End: 82-49-3200EM Thermometer Miscellaneous 05/01/2019 - 09/24/2019 Provider: Vahid Nagy CNPbreath-actuated 120 actuat beclomethasone dipropionate 0.08 mg/actuat metered dose inhaler (20 sources)CorticosteroidStart: 04-09-2022 End: 35-20-8182efxn 1 puff(s) by inhalation at bedtimebeclomethasone HFA (QVAR REDIHALER) 80 mcg/actuation inhaler Inhale 1 puff in the morning and at bedtime. 04/09/2022 04/17/2024 Discontinued (Therapy completed)Start: 65-89-9404pxoq 1 puff(s) by inhalation in the morningbeclomethasone (QVAR REDIHALER) 80 MCG/ACT AERB inhaler Indications: Chronic obstructive pulmonary disease, unspecified COPD type (HCC) Inhale 1 puff into the lungs in the morning and 1 puff in the ev ening. 1 each 5 04/09/2022 ActiveStart: 30-16-5342sgyn 1 puff(s) by inhalation twice dailybeclomethasone HFA 80 MCG/ACT Aerosol, Breath Activated inhaler Inhale 1 puff 2 times daily. 0 04/09/2022 ActiveStart: 05-09-2021 End: 42-47-4324lmey 2 puff(s) by inhalation twice dailybeclomethasone (QVAR) 80 MCG/ACT inhaler Indications: Chronic obstructive pulmonary disease, unspecified COPD type (HCC) Inhale 2 puffs into the lungs 2 times daily 1 each 5 05/09/2021 06/22/2021 Discontinued (LIST CLEANUP)Start: 48-99-4261dvww 2 puff(s) by inhalation twice dailybeclomethasone (QVAR) 80 MCG/ACT inhaler Indications: Chronic obstructive pulmonary disease, unspecified COPD type (HCC) Inhale 2 puffs into the lungs 2 times daily 1 each 5 03/23/2021 ActiveStart: 07-25-2019 End: 45-09-3236xatf 1 puff(s) by inhalation twice dailybeclomethasone (QVAR) 80 MCG/ACT inhaler Inhale 1 puff into the lungs 2 times daily 1 Inhaler 3 07/01 ActiveStart: 04-29-2018 End: 61-18-3829Zyjv RediHaler 80MCG/ACT Inhalation Aerosol Breath Activated 09/30/2018 Provider: Vahid Nagy CNPStart: 08-09-2017 End: 13-63-0763SZKK 80MCG/ACTUAT MISC 08/09/2017 - 08/09/2017 Provider:Start: 82-93-5669gnyc 1 puff(s) by inhalation twice dailyQvar 80 mcg/actuation inhalation aerosol 08/09/2017 inhale 1 puff (80 mcg) by inhalation route 2 times per dayStart: 75-63-0567ztwy 1 puff(s) by inhalation twice dailyQvar 80 [...] (20 sources)Angiotensin Converting Enzyme InhibitorStart: 01-12-2021 End: 76-13-6291bvdxwytqvt (LOTENSIN) 40 MG tabletStart: 04-26-2018 End: 75-53-5189SOPTOELKNC 10 mg MISC 04/26/2018 - 04/26/2018 Provider:Start: 12-14-2016 End: 43-73-7136WRWIGDXZHW 10 mg MISC 12/14/2016 - 12/14/2016 Provider:Start: 91-92-3642yvqa 1 tablet by mouth once dailybenazepril 10 mg oral tablet 12/14/2016 take 1 tablet (10 mg) by oral route once dailyBlood Pressure Cuff (11 sources)Start: 64-12-2966Claft Pressure Cuff miscellaneous misc 08/14/2017 use as directed to monitor blood pressure (Dx I10)BLOOD PRESSURE CUFF MISC (20 sources)Start: 08-14-2017 End: 71-16-8576ZKEQG PRESSURE CUFF MISC 08/14/2017 - 08/14/2017 Provider:BLOOD PRESSURE CUFF MISC (5 sources)Start: 08-14-2017 End: 75-23-4334RVGES PRESSURE CUFF MISC 08/14/2017 - 08/14/2017 Provider:Blood Pressure Cuff Miscellaneous (20 sources)Start: 04-29-2018 End: 46-14-8727Vjwrk Pressure Cuff Miscellaneous 04/29/2018 - 09/24/2019 Provider:Start: 96-54-3842Iepsn Pressure Cuff Miscellaneous 04/29/2018 Provider: Blood Pressure Cuff Miscellaneous (5 sources)Start: 04-29-2018 End: 35-88-2955Bknjc Pressure Cuff Miscellaneous 04/29/2018 - 09/24/2019 Provider:Start: 36-63-5626Wguwb Pressure Cuff Miscellaneous 04/29/2018 Provider: 60 actuat budesonide 0.16 mg/actuat / formoterol fumarate 0.0045 mg/actuat metered dose inhaler (13 sources)Corticosteroid, beta2-Adrenergic AgonistStart: 70-05-6133xjgo 2 puff(s) by mouth twice daily2 puff, Inhalation, 2 TIMES DAILY, First dose on Sat08/12/24 at 2100, Until Discontinued, Rinse mouth out with water (without swallowing) after every dose.Start: 68-40-7812lweq 2 puff(s) by mouth twice daily2 puff, Inhalation, 2 TIMES DAILY RESP, First dose on Sat08/06/24 at 2000, Until Discontinued, [place] out with water (without swallowing) after every dose.Start: 15-13-0036eulu 2 puff(s) by inhalation in the morningbudesonide- formoteroL (SYMBICORT) 160-4.5 mcg/actuation inhaler Inhale 2 puffs in the morning and 2puffs before bedtime. 02/06/2024Start: 52-54-8222kbxc 2 puff(s) by inhalation in the morningbudesonide-formoteroL (SYMBICORT) 160-4.5 mcg/actuation inhaler Inhale 2 puffs in the morning and 2puffs before bedtime. 02/06/2024 SuspendedStart: 26-86-9158vbnz 2 puff(s) by inhalation twice dailybudesonide- formoterol (SYMBICORT) 160-4.5 MCG/ACT AERO Indications: COPD with acute exacerbation (HCC) Inhale 2 puffs into the lungs 2 times daily 10.2 g 3 02/06/2024 ActiveStart: 27-63-7295ajhi 2 puff(s) by inhalation in the morning budesonide-formoteroL (SYMBICORT) 160-4.5 mcg/actuation inhaler Inhale 2 puffs in the morning and 2puffs before bedtime. 02/06/2024 ActiveStart: 56-94-1868gzul 2 puff(s) by inhalation twice dailybudesonide-formoterol (SYMBICORT) 160-4.5 MCG/ACT AERO Inhale 2 puffs into the lungs 2 times daily 10.2 g 3 08/13/2023 ActiveCALCIUM 600 600 mg calcium (1,500 MG) MISC (20 sources)Start: 08-16-2017 End: 03-86-3090UMAOKIE 600 600 mg calcium (1,500 MG) MISC 08/16/2017 - 08/16/2017 Provider:CALCIUM 600 600 mg calcium (1,500 MG) MISC (1 source)Start: 08-16-2017 End: 23-47-2611UTRSPIS 600 600 mg calcium (1,500 MG) MISC 08/16/2017 - 08/16/2017 Provider:calcium carbonate 1500 mg oral tablet (17 sources)Start: 76-75-5330cjjn 1 tablet by mouth twice dailyCalcium 600 600 mg calcium (1,500 mg) oral tablet 08/16/2017 take 1 tablet by oral route twice dailyCalcium Carbonate-Vit D-Min (CALCIUM 1200 PO) (2 sources)Start: 08-16-2017 End: 78-84-0240Wapcabv Carbonate-Vit D-Min (CALCIUM 1200 PO) Take by mouth 08/16/2017 08/06/2024 Discontinued (LIST CLEANUP)Start: 44-68-7865Cvueyyy Carbonate-Vit D-Min (CALCIUM 1200 PO) Take by mouth 08/16/2017 Activecefdinir 300 mg oral capsule (20 sources)Cephalosporin AntibacterialStart: 03-20-2019 End: 14-30-4980Tyhhwczr 300 MG Oral Capsule 03/20/2019 - 03/20/2019 Provider: Vahid Vasqueztirizine hydrochloride 10 mg oral tablet (20 sources)Histamine-1 Receptor AntagonistStart: 08-27-2018 End: 62-01-1898JegYPB Allergy 10 MG Oral Tablet 12/11/2018 - 07/09/2019 Provider: Vahid Nagy CNPChantix Starting Month Box (1 source)Start: 43-10-1482Knieuuy Starting Month Box 0.5 mg (11)- 1 mg (42) oral tablets,dose pack 03/26/2018 take as directedCHANTIX STARTING MONTH BOX 0.5 mg (11)- 1 MG (42) MISC (20 sources)Start: 03-26-2018 End: 98-48-1256ADPESQR STARTING MONTH BOX 0.5 mg (11)- 1 MG (42) MISC 03/26/2018 - 03/26/2018 Provider:CHANTIX STARTING MONTH BOX 0.5 mg (11)- 1 MG (42) MISC (1 source)Start: 03-26-2018 End: 64-33-4862HMJZAEQ STARTING MONTH BOX 0.5 mg (11)- 1 MG (42) MISC 03/26/2018 - 03/26/2018 Provider:Chantix Starting Month Box 0.5 mg (11)- 1 mg (42) oral tablets,dose pack (1 source)Start: 18-49-3375Onzfrjh Starting Month Box 0.5 mg (11)- 1 mg (42) oral tablets,dose pack 03/26/2018 take as directedCHANTIX STARTING MONTH BOX 0.5 mg (11)-1 MG (42) MISC (4 sources)Start: 03-26-2018 End: 04-25-0081MJUGBKD STARTING MONTH BOX 0.5 mg (11)-1 MG (42) MISC 03/26/2018 - 03/26/2018 Provider:CHANTIX STARTING MONTH BOX 0.5 mg (11)-1 MG (42) MISC (4 sources)Start: 03-26-2018 End: 07-88-3435NOWZSWI STARTING MONTH BOX 0.5 mg (11)-1 MG (42) [facility] 03/26/2018 - 03/26/2018 Provider:chlorhexidine gluconate 1.2 mg/ml mouthwash (6 sources)Start: 40-80-9592ktmx 15 mL by mouth twice daily15 mL, Mouth/Throat, 2 TIMES DAILY, First dose on Sat08/12/24 at 2100, Until Discontinued, Rinse and spit. Do not swallow.Start: 11-51-7012qipt 15 mL by mouth twice daily15 mL, Mouth/Throat, 2 TIMES DAILY, First dose on Jenn 08/06/24 at 2100, Until Discontinued, Rinse andspit. Do not swallow.Start: 64-43-0779weyr 15 mL by mouth twice dailychlorhexidine (PERIDEX) 0.12 % solution Indications: Mouth sore swish and spit 15ml BY MOUTH TWICE DAILY 473 mL 07/22/2024 ActiveStart: 07-18-2019 End: 52-25-0093ffqmbjegxrsux (PERIDEX) 0.12 % solution 15 mLchlorpheniramine maleate 4 mg oral tablet (20 sources)Histamine-1 Receptor AntagonistStart: 04-29-2018 End: 75-23-5373Soayl-Trimeton 4MG Oral Tablet 04/29/2018 - 04/29/2018 Provider: Start: 01-20-2018 End: 79-27-9636Ymukl-Trimeton 4MG OR TABS 01/20/2018 - 01/20/2018 Provider: cilostazol 100 mg oral tablet (20 sources)Phosphodiesterase 3 InhibitorStart: 04-26-2018 End: 52-28-8766Ykngwilxia 100 MG OR TABS 04/26/2018 - 04/26/2018 Provider: Conversion ProviderStart: 04-14-2015 End: 67-81-6664Jlykkgazen 100MG OR TABS 04/14/2015 - 04/14/2015 Provider:200 ml ciprofloxacin 2 mg/ml injection (8 sources)Quinolone AntimicrobialStart: 07-19-2021 End: 63-48-0142jztopqfrrmzoi (CIPRO) 400 mg in dextrose 5% premix IVPBStart: 95-07-3587Ylnis 250 MG Oral Tablet 11/16/2019 Provider: Vahid Nagy CNPStart: 07-23-2019 End: 65-35-2552ihmgkhrgfetxa (CIPRO) tablet 500 mgStart: 07-20-2019 End: 38-00-6850xjrxbvjplsiro (CIPRO) IVPB 400 mgStart: 91-87-7844Zlknq 250MG Oral Tablet 09/30/2018 Provider: Vahid Nagy CNPclindamycin (20 sources)Lincosamide AntibacterialStart: 09-18-2017 End: 94-38-1073YBNCYJXZTZP HCL 300 MG MISC 09/18/2017 - 09/18/2017 Provider: Start: 09-18-2017 End: 73-37-6546HKVQUUDQDXB HCL 300MG MISC 09/18/2017 - 09/18/2017 Provider: Start: 09-18-2017 End: 72-71-2504xyjh 1 capsule by mouth twice dailyclindamycin HCl 300 mg oral capsule 09/18/2017 09/25/2017 take 1 capsule (300 mg) by oral route 2 times per day for 7 dayscloNIDine hydrochloride 0.1 mg oral tablet (20 sources)Central alpha-2 Adrenergic AgonistStart: 04-26-2018 End: 07-00-8333sgpYGCwzm HCl 0.1 MG OR TABS 04/26/2018 - 04/26/2018 Provider: Conversion ProviderStart: 04-14-2015 End: 24-03-6570udpUCWgqj HCl 0.1MG OR TABS 04/14/2015 - 04/14/2015 Provider: clopidogrel 75 mg oral tablet (20 sources)P2Y12 Platelet InhibitorStart: 01-19-2024 End: 54-84-2982woma 1 tablet by mouth once dailyClopidogrel (Plavix) 75 mg tablet Discontinued 75 MG PO Daily January 19, 2024 12:00am January 23, 2024 3:47pmStart: 17-09-1148amqc 1 tablet by mouth in the morningclopidogreL (PLAVIX) 75 mg tablet Take 1 tablet (75 mg total) by mouth in the morning. 30 tablet 09/26/2022 SuspendedStart: 89-00-8964rexe 1 tablet by mouth once daily clopidogrel 75 MG tablet Take 75 mg by mouth daily. 0 06/22/2021 ActiveStart: 15-11-2302loaz 1 tablet by mouth once dailyclopidogrel (PLAVIX) 75 MG tablet TAKE ONE TABLET BY MOUTH DAILY 90 tablet 3 05/31/2020 ActiveStart: 07-26-2019 End: 16-27-8017hbpc 1 tablet by mouth once dailyclopidogrel (PLAVIX) 75 MG tablet Take 1 tablet by mouth daily 30 tablet 3 07/26/2019 ActiveStart: 04-29-2018 End: 83-00-7589were 75 mg by mouth once daily75 mg, Oral, DAILY, First dose on Sat04/22/19 at 0900Start: 02-24-2018 End: 31-06-4342Rsmoba 75MG OR TABS 04/26/2018 - 04/26/2018 Provider: Parker Lovelace Nicotine 14MG/24HR Transdermal Patch 24 Hour (20 sources)Start: 07-28-2018 End: 67-02-6258FZU Nicotine 14MG/24HR Transdermal Patch 24 Hour 07/28/2018 - 09/24/2019 Provider: Vahid Nagy CNPStart: 11-64-4551GVQ Nicotine 14MG/24HR Transdermal Patch 24 Hour 07/28/2018 Provider: Vahid DOMINGUEZ Nicotine 14MG/24HR Transdermal Patch 24 Hour (1 source)Start: 07-28-2018 End: 54-91-5668WKZ Nicotine 14MG/24HR Transdermal Patch 24 Hour 07/28/2018 - 09/24/2019 Provider: Vahid DOMINGUEZ Nicotine 21MG/24HR Transdermal Patch 24 Hour (20 sources)Start: 06-27-2018 End: 44-85-6785SRR Nicotine 21MG/24HR Transdermal Patch 24 Hour 06/27/2018 - 07/28/2018 Provider: Vahid DOMINGUEZ Nicotine 21MG/24HR Transdermal Patch 24 Hour (2 sources)Start: 06-27-2018 End: 35-42-4496UGV Nicotine 21MG/24HR Transdermal Patch 24 Hour 06/27/2018 - 07/28/2018 Provider: Vahid Nagy CNPStart: 23-08-9486CKX Nicotine 21MG/24HR Transdermal Patch 24 Hour 06/27/2018 Provider: Vahid Campbellamethasone phosphate 10 mg/ml injectable solution (20 sources)CorticosteroidStart: 11-19-2024 End: 56 mg, IntraVENous, ONCE, On Sat11/19/24 at 1400, For 1 doseStart: 12-14-2016 End: 80-50-0948Npgxcbzvtbktj 4MG OR TABS 12/14/2016 - 12/14/2016 Provider: dextromethorphan hydrobromide 3 mg/ml / promethazine hydrochloride 1.25 mg/ml oral solution (20 sources)Phenothiazine, Uncompetitive L-wlgktt-W-aspartate Receptor Antagonist, Sigma-1 AgonistStart: 05-20-2019 End: 85-44-0233Fyftrncawift-DM 6.25-15 MG/5ML Oral Syrup 06/17/2019 - 07/09/2019 Provider: Vahid Nagy CNPStart: 05-01-2019 End: 84-53-1296Gggxagrwqqql-DM 6.25-15 MG/5ML Oral Syrup 05/01/2019 - 05/01/2019 Provider: Vahid Nagy CNPdiazePAM 5 mg oral tablet (1 source)BenzodiazepineStart: 06-15-2019 End: 25-44-5571rkfpnKTI (VALIUM) tablet 5 mgdiclofenac sodium 0.01 mg/mg topical gel (3 sources)Nonsteroidal Anti-inflammatory DrugStart: 03-23-2021 End: 99-75-0757hhtrbuhwtw sodium (VOLTAREN) 1 % GEL Indications: Chronic pain of right knee , Chronic right hip pain , Sacral pain , Lumbar back pain with radiculopathy affecting right lower extremity Apply 4 g topically 4 times daily 350 g 0 03/23/2021 06/22/2021 Discontinued (LIST CLEANUP)DULoxetine (20 sources)Serotonin and Norepinephrine Reuptake InhibitorStart: 12-14-2016 End: 34-86-8738FPYLUDWCCM 60 MG [facility] [place] 12/14/2016 - 12/14/2016 Provider:Start: 12-14-2016 End: 62-74-7429SYNBXTYWTV 60MG [facility] [place] 12/14/2016 - 12/14/2016 Provider:Start: 60-66-0287hsof 1 capsule by mouth once dailyduloxetine 60 mg oral capsule,delayed release(DR/EC) 12/14/2016 take 1 capsule (60 mg) by oral route once daily2 ml famotidine 10 mg/ml injection (4 sources)Histamine-2 Receptor AntagonistStart: 01-17-2021 End: 01-78-0844vxhphoxtum (PEPCID) injection 20 mgStart: 07-22-2019 End: 39-62-1136fuegglijcu (PEPCID) tablet 20 mgStart: 07-18-2019 End: 67-24-8906qazpaiylps (PEPCID) injection 20 mgStart: 12-64-7603ankk 20 mg by mouth twice daily20 mg, Oral, 2 TIMES DAILY, [place]04/[place] [address] ml fentaNYL 0.05 mg/ml injection (2 sources)Opioid AgonistStart: 07-20-2019 End: 11-24-0651jvoleWBH (SUBLIMAZE) injection 50 mcgStart: 07-18-2019 End: 78-53-5961wfscgIJN (SUBLIMAZE) injection 50 mcgfentaNYL 20 mcg/mL Infusion (1 source)Start: 07-18-2019 End: 39-22-4107tpiybRIT 20 mcg/mL Infusion2 ml furosemide 10 mg/ml injection (18 sources)Loop DiureticStart: 12-31-2024 End: 03-51-597238 mg, intravenous, Once, On [facility] 12/31/24 at 1515, For 1 dose, Look-alike/sound-alike medication - verify indication for use. IVP rate = 20 mg/minStart: 02-06-2024 End: 19-18-5419uzxz 20 mg by mouth once daily20 mg, oral, Daily, First dose on [facility] 12/31/24 at 0900, Look-alike/sound-alike medication - verify indication for use.Start: 52-38-9537jhgo 1 tablet by mouth once dailyfurosemide (LASIX) 20 MG tablet Indications: Primary hypertension take 1 tablet by mouth once daily90 tablet 1 10/02/2023 ActiveStart: 19-26-1742kjcu 1 tablet by mouth once daily furosemide (LASIX) 20 MG tablet Take 1 tablet by mouth daily 30 tablet 0 05/09/2021 ActiveStart: 23-65-6347rfkh 1 tablet by mouth once dailyfurosemide (LASIX) 20 MG tablet Take 1 tablet by mouth daily 30 tablet 0 03/19/2021 Active Start: 64-04-1711haseesvsis (LASIX) injection 40 mgStart: 03-13-2020 End: 17-21-2463hcqr 1 tablet by mouth twice dailyfurosemide (LASIX) 20 MG tablet Take 1 tablet by mouth 2 times daily 8 tablet 0 03/13/2020 03/17/2020 Discontinued (Therapy completed)Start: 07-19-2019 End: 34-63-1140lzagfkgjdl (LASIX) injection 40 mgStart: 07-17-2019 End: 35-75-4766lexofigvnp (LASIX) injection 40 mgINCONTINENCE BRIEFS 100 MISC (20 sources)Start: 01-28-2017 End: 60-85-3871GVSIREVBXUAI BRIEFS 100 MISC 01/28/2017 - 01/28/2017 Provider: INCONTINENCE BRIEFS 100 MISC (5 sources)Start: 01-28-2017 End: 97-16-4298OTDKEVFVYNCU BRIEFS 100 MISC 01/28/2017 - 01/28/2017 Provider: Incontinence Pads (17 sources)Start: 76-65-7793Zkxpzersuvhy Pads 08/14/2017 Use for incontinence (dx: R35.1, N30.1)Start: 77-80-8639Hafhaigcwren Pads 08/14/2017 Use for incontinence (dx: R35.1, N30.1)INCONTINENCE PADS 100 MISC (20 sources)Start: 07-30-2017 End: 91-62-9283UIGYQJDKFGFG PADS 100 MISC 07/30/2017 - 07/30/2017 Provider: Start: 01-28-2017 End: 85-60-6625FUBJIZVAVJYV PADS 100 MISC 01/28/2017 - 01/28/2017 Provider: INCONTINENCE PADS 100 MISC (10 sources)Start: 07-30-2017 End: 55-95-2924ZPERGBGMGVIG PADS 100 MISC 07/30/2017 - 07/30/2017 Provider: Start: 01-28-2017 End: 69-70-7670VUJTTKKCJBOR PADS 100 MISC 01/28/2017 - 01/28/2017 Provider: INCONTINENCE PADS MISC (20 sources)Start: 08-14-2017 End: 44-96-2832RXMNMWQQNUMX PADS MISC 08/14/2017 - 08/14/2017 Provider: INCONTINENCE PADS MISC (5 sources)Start: 08-14-2017 End: 67-40-0239ZNCUTKYSOVJH PADS MISC 08/14/2017 - 08/14/2017 Provider:iohexoL (OMNIPAQUE) 350 mg iodine/mL injection 100 mL (1 source)Start: 12-30-2024 End: mL, intravenous, Once in imaging, contrast, Starting on Sat12/30/24 at 1547, For 1 dose, VESICANT (RED)Iopamidol (2 sources)Radiographic Contrast AgentStart: 04-12-2019 End: 67-54-1197mbxdoiald (ISOVUE-370) 76 % injection 75 mLStart: 02-23-2019 End: 71-05-1691ftlhtaonf (ISOVUE-370) 76 % injection 120 mLiopamidol (ISOVUE- 370) 76 % injection 100 mL (1 source)Start: 08-06-2024 End: 66-28-4269haqs 1 dose intravenously sxdp998 mL, IntraVENous, IMG ONCE PRN, 1 dose, Starting on Jenn 08/06/24 at 1602, Until Jenn 08/06/24 at 1607, Otheriopamidol (ISOVUE-370) 76 % injection 18 mL (2 sources)Start: 01-04-2022 End: 03-09-4350lrnnntqus (ISOVUE-370) 76 % injection 18 mLStart: 06-20-2021 End: 86-63-0672mnazlyjih (ISOVUE-370) 76 % injection 18 mLiopamidol (ISOVUE-370) 76 % injection 70 mL (1 source)Start: 03-17-2020 End: 11-20-4122orvqiwekh (ISOVUE-370) 76 % injection 70 mLiopamidol (ISOVUE-370) 76 % injection 75 mL (7 sources)Start: 01-04-2022 End: 47-38-2047sivefvuai (ISOVUE-370) 76 % injection 75 mLStart: 06-20-2021 End: 74-59-8188ouzuovhlw (ISOVUE-370) 76 % injection 75 mLStart: 03-17-2021 End: 44-89-3256lhxhwdbkp (ISOVUE-370) 76 % injection 75 mLStart: 12-04-2020 End: 20-92-8529cgxtxrdxm (ISOVUE-370) 76 % injection 75 mLStart: 10-06-2019 End: 68-19-9048srlhotddy (ISOVUE-370) 76 % injection 75 mLStart: 07-17-2019 End: 53-25-9307bssbkclbv (ISOVUE-370) 76 % injection 75 mLStart: 04-21-2019 End: 42-17-0411vkmqerfdw (ISOVUE-370) 76 % injection 75 mLisopropyl alcohol 0.7 ml/ml medicated pad (17 sources)Start: 42-18-2436Pjledpe Prep Pads topical pads, medicated 12/14/2016 use for blood sugar testing TID (dx: E11.9)24 hr isosorbide mononitrate 60 mg extended release oral tablet (20 sources)Nitrate VasodilatorStart: 71-89-5630ireq 30 mg by mouth once daily30 mg, Oral, DAILY, First dose (after last modification) on Sat08/09/24 at 0900, Until Discontinued, Do not crush or chew.Start: 02-06-2024 End: 27-70-7184yhhj 60 mg by mouth once daily60 mg, Oral, DAILY, First dose on Sat08/12/24 at 1545, Until Discontinued, Do not crush or chew.Start: 01-19-2024 take 60 mg by mouth once dailyIsosorbide Mononitrate Active 60 MG PO Daily January 19, 2024 12:00amStart: 66-66-3621elxy 1 tablet by mouth once daily isosorbide mononitrate (IMDUR) 60 MG extended release tablet Indications: Primary hypertension Take1 tablet by mouth daily 90 tablet 10/18/2023 Active Start: 05-04-2019 End: 51-19-1934qbss 1 tablet by mouth once dailyisosorbide mononitrate (IMDUR) 30 MG extended release tablet Take 1 tablet by mouth daily 30 tablet3 07/25/2019 Active1 ml ketorolac tromethamine 30 mg/ml cartridge (20 sources)Nonsteroidal Anti-inflammatory Drug, Cyclooxygenase InhibitorStart: 07-29-2022 End: 91-43-7112qngjsdynw (TORADOL) injection 30 mgStart: 56-91-0445Tzjhgpvyt Tromethamine 60 MG/2ML IM SOLN 01/12/2019 Elena Malik CNPComment on above: Patient tolerated therapy well. No signs or symptoms of adverse reactions. lancets (11 sources)Start: 96-87-3573apztupb 30 gauge miscellaneous [facility] [place] 12/14/2016 use for blood sugar testing TID (dx: E11.9)loratadine 10 mg oral tablet (20 sources)Start: 12-27-2017 End: 70-52-3350Sigmicmi 10MG OR TABS 12/27/2017 - 12/27/2017 Provider:metFORMIN hydrochloride 500 mg oral tablet (6 sources)BiguanideStart: 07-16-2024 End: 78-56-6572pgon 500 mg by mouth twice daily at mg, Oral, 2 TIMES DAILY WITH MEALS, First dose on Sat08/12/24 at 1700, Until Discontinued1 ml morphine sulfate 4 mg/ml injection (4 sources)Opioid AgonistStart: 11-19-2024 End: 34-03-1873uqwe 1 dose by mouth every hour4 mg, IntraVENous, ONCE, 1 dose, On Jenn 11/19/24 at 1315, If oral and IV narcotics ordered, use oralfirst and only use IV if oral is ineffective or cannot take oral. Do Not give oral and IV within 1 hour of each other unless specifically ordered.Start: 01-12-2021 End: 86-88-5300oqayewfp injection 4 mgStart: 12-04-2020 End: 76-43-8372ypjmysiv injection 4 mgStart: 02-23-2019 End: 65-51-8117ikusfsdi (PF) injection 2 mgmultivitamin 1 tablet (1 source)Start: 51-54-7021eudu 1 tablet by mouth once daily1 tablet, Oral, DAILY, First dose on 08/15/24 at 0900, Until Discontinued1 ml naloxone hydrochloride 0.4 mg/ml injection (20 sources)Opioid AntagonistStart: 10-07-2019 End: 23-67-9357fpjcrpmi (NARCAN) injection 0.4 mgStart: 07-17-2019 End: 85-64-9553vtbafmdo (NARCAN) injection 1 mgStart: 95-00-5308Cuinsr 4MG/0.1ML Nasal Liquid 07/28/2018 Provider: Vahid Nagy CNPnitrofurantoin, macrocrystals 25 mg / nitrofurantoin, monohydrate 75 mg oral capsule (9 sources)Nitrofuran AntibacterialStart: 09-23-2019 End: 36-28-9549Rbmhxjdh 100 MG Oral Capsule 09/23/2019 - 09/24/2019 Provider: Vahid Nagy CNPNitrostat 0.4MG SL SUBL (8 sources)Start: 04-26-2018 End: 16-69-4938Lnpwvxvwf 0.4MG SL SUBL 04/26/2018 - 04/26/2018 Provider: Conversion ProviderStart: 02-24-2018 End: 14-05-8881Xxhhhyolr 0.4MG SL SUBL 02/24/2018 - 02/24/2018 Provider:Start: 12-14-2016 End: 98-48-8112Ozpnnyvfk 0.4MG SL SUBL 12/14/2016 - 12/14/2016 Provider:Start: 04-14-2015 End: 73-17-5996Okjhhssgh 0.4MG SL SUBL 04/14/2015 - 04/14/2015 Provider:normal saline (20 sources)Start: 08-16-2017 End: 50-90-8995QXLIKL SOLUTION MISC 08/16/2017 - 08/16/2017 Provider:Start: 13-49-5257Erfsrn Solution miscellaneous solution 08/16/2017 use as directed to clean out wound prior to packingnystatin 845283 unt/ml topical cream (1 source)Polyene AntifungalStart: 02-22-2021 End: 82-62-4655gldqgsjk (MYCOSTATIN) 559194 UNIT/GM cream Apply topically 2 times daily. 15 g 1 02/22/2021 03/17/2021 Discontinued (LIST CLEANUP)2 ml orphenadrine citrate 30 mg/ml injection (1 source)Muscle RelaxantStart: 11-19-2024 End: 53-12-580494 mg, IntraVENous, ONCE, 1 dose, On Jenn 11/19/24 at 1400oxyCODONE hydrochloride 5 mg oral tablet (3 sources)Opioid AgonistStart: 08-06-2024 End: 55-18-0628rkkq 1 dose by mouth once2.5 mg, Oral, Once, 1 dose, On Jenn 08/06/24 at 2045Start: 21-22-7101bfmc 1 tablet by mouth every four hours as needed for painoxyCODONE (ROXICODONE) 5 mg immediate release tablet Indications: Hypertensive emergency Take 1 tablet (5 mg total) by mouth every 4 (four) hours as needed for pain for up to 10 doses. Max Daily Amount: 30 mg 10 tablet 11/17/2022 Suspendedpenicillin v potassium 500 mg oral tablet (20 sources)Start: 11-26-2017 End: 70-96-2020Ibuwxzgwxo V Potassium 500MG OR TABS 11/26/2017 - 11/26/2017 Provider:Start: 10-29-2017 End: 61-99-6846Zogauhexih V Potassium 500MG OR TABS 10/29/2017 - 10/29/2017 Provider:piperacillin-tazobactam (ZOSYN) 3,375 mg in dextrose 5 % 50 mL IVPB (mini-bag) (1 source)Start: 03-17-2021 End: 40-44-7567pmtdjyttkywd-tazobactam (ZOSYN) 3,375 mg in dextrose 5 % 50 mL IVPB (mini-bag)piperacillin-tazobactam (ZOSYN) 3,375 mg in sodium chloride 0.9 % 50 mL IVPB (Dbpy9Aua) (2 sources)Start: 08-12-2024 End: ,375 mg, IntraVENous, at 100 mL/hr, Administer over 30 Minutes, ONCE, On Sat08/12/24 at 1130, For 1 dose, Use 20mm (Blue) Wrjd1Lsd Adapter Preparation instructions: Attach medication vial to one 20mm (Blue) Ygut5Prr adapter. Rai fluid bag with adapter, mix, and administer per order.Start: 08-06-2024 End: ,375 mg, IntraVENous, at 12.5 mL/hr, Administer over 240 Minutes, EVERY 8 HOURS, First dose on Sat08/06/24 at 2200, For 7 days, Use 20mm (Blue) Yavb2Lxb Adapter Preparation instructions: Attach medication vial to one 20mm (Blue) Uhrx5Ozp adapter. Rai fluid bag with adapter, mix, and administer per order.pravastatin sodium 20 mg oral tablet (20 sources)HMG-CoA Reductase InhibitorStart: 32-62-6037woyd 40 mg by mouth once daily40 mg, Oral, DAILY, First dose on Sat08/12/24 at 1545, Until Discontinued Start: 22-07-7524kdve 40 mg by mouth once daily40 mg, Oral, NIGHTLY, First dose on Sat08/06/24 at 2100, Until DiscontinuedStart: 64-43-4184czon 1 tablet by mouth once dailypravastatin (PRAVACHOL) 40 MG tablet Indications: Hyperlipidemia, unspecified hyperlipidemia type Take 1 tablet by mouth daily 90 tablet 1 02/06/2024 ActiveStart: 55-35-7291qrye 1 tablet by mouth once dailypravastatin (PRAVACHOL) 40 MG tablet Indications: Hyperlipidemia, unspecified hyperlipidemia type Take 1 tablet by mouth daily 90 tablet 06/10/2023 ActiveStart: 05-09-2021 take 1 tablet by mouth once dailypravastatin (PRAVACHOL) 40 MG tablet Indications: Hyperlipidemia, unspecified hyperlipidemia type Take 1 tablet by mouth daily 90 tablet 0 11/30/2021 ActiveStart: 22-77-2600cfzz 1 tablet by mouth once dailypravastatin (PRAVACHOL) 40 MG tablet Indications: Hyperlipidemia, unspecified hyperlipidemia type Take 1 tablet by mouth daily 90 tablet 0 03/23/2021 ActiveStart: 99-36-2981yodf 40 mg by mouth once daily40 mg, Oral, DAILY, First dose on Sat03/18/20 at 1430Start: 15-35-2367Luhrlxhgq 40 MG Oral Tablet 02/03/2020 Provider: Vahid Nagy CNPStart: 04-26-2018 End: 85-04-2249BRWRSRTIRYL 40 MG MISC 04/26/2018 - 04/26/2018 Provider:Start: 04-26-2018 End: 10-43-9661DPZFVCOGITE 40MG MISC 04/26/2018 - 04/26/2018 Provider:Start: 04-14-2015 End: 90-98-2736CLRPTOXUIPQ 40 MG MISC 04/14/2015 - 04/14/2015 Provider:Start: 04-14-2015 End: 19-50-2509THBGDQGSQDK 40MG MISC 04/14/2015 - 04/14/2015 Provider:Start: 04-14-2015 End: 66-00-5179tcza 1 tablet by mouth once dailypravastatin 40 mg oral tablet 04/14/2015 12/14/2016 take 1 tablet (40 mg) by oral route once dailypregabalin 150 mg oral capsule (20 sources)Start: 01-19-2024 End: 15-54-5081cvxk 1 capsule by mouth twice dailyPregabalin (Lyrica) 150 mg capsule Discontinued 150 MG PO Twice daily January 20, 2024 12:00am January 23, 2024 3:47pmStart: 12-27-2021 End: 94-26-7365begh 1 capsule by mouth twice dailypregabalin (LYRICA) 150 MG capsule Indications: Chronic right hip pain , Chronic pain of right knee, Sacral pain , Lumbar back pain with radiculopathy affecting right lower extremity take 1 capsule by mouth twice a day 60 capsule 0 12/27/2021 01/26/2022 ActiveStart: 64-06-9482vqud 1 capsule by mouth twice dailypregabalin 75 MG capsule Take 1 capsule by mouth 2 times daily. 0 06/22/2021 ActiveStart: 03-23-2021 End: 23-71-7322ifcs 1 capsule by mouth twice dailypregabalin (LYRICA) 75 MG capsule Indications: Chronic pain of right knee , Chronic right hip pain , Sacral pain , Lumbar back pain with radiculopathy affecting right lower extremity Take 1 capsule by mouth 2 times daily for 30 days. 60 capsule 0 04/20/2021 ActiveStart: 61-67-9342Qyiygr 75 MG Oral Capsule 04/12/2020 Provider: Start: 36-37-3620Rvoeyk 75 MG Oral Capsule 04/12/2020 Provider:Start: 03-18-2020 pregabalin (LYRICA) capsule 50 mgStart: 19-65-4384wfqxqqqsnt (LYRICA) capsule 75 mgpregabalin (LYRICA) 100 mg capsule Take 150 mg by mouth in the morning and 150 mg before bedtime. Suspended End: 13-97-2993tdbmdbgifl (LYRICA) 50 MG capsule Take 30 mg by mouth 2 times daily. 0 03/17/2021 Discontinued (LIST CLEANUP)PROAIR HFA 90 MCG/ACTUAT MISC (20 sources)Start: 09-11-2017 End: 19-64-4648SPFHMB HFA 90 MCG/ACTUAT MISC 09/11/2017 - 09/11/2017 Provider: PROAIR HFA 90 MCG/ACTUAT MISC (1 source)Start: 09-11-2017 End: 81-47-2028KFPREI HFA 90 MCG/ACTUAT MISC 09/11/2017 - 09/11/2017 Provider: 100 ml propofol 10 mg/ml injection (1 source)General AnestheticStart: 07-18-2019 End: 34-89-7505wbthenru injectionpt unable to verify home meds at this time (2 sources)Start: 01-19-2024 End: 09-84-4626zf unable to verify home meds at this time Discontinued January 19, 2024 12:00am January 20, 2024 4:55pmStart: 70-74-7801gf unable to verify home meds at this time Active January 19, 2024 12:00amQVAR 80 MCG/ACTUAT MISC (20 sources)Start: 08-09-2017 End: 83-63-4610PSOZ 80 MCG/ACTUAT MISC 08/09/2017 - 08/09/2017 Provider:QVAR 80 MCG/ACTUAT MISC (1 source)Start: 08-09-2017 End: 42-62-7201EXYO 80 MCG/ACTUAT MISC 08/09/2017 - 08/09/2017 Provider: regadenoson (LEXISCAN) injection 0.4 mg (1 source)Start: 09-16-2019 End: 36-71-1537prknhvknxuk (LEXISCAN) injection 0.4 mgsimethicone in sterile water 80 mg/1000 mL irrigation 1 Application (2 sources)Start: 07-19-2021 End: 64-43-2503rehoxinugff in sterile water 80 mg/1000 mL irrigation 1 Applicationsucralfate 100 mg/ml oral suspension (6 sources)Aluminum ComplexStart: 12-30-2024 End: 10-99-5742xcly 1 dose by mouth every two hours1,000 [...] injection 30 millicurie (2 sources)Start: 09-17-2019 End: 66-97-1743wxgrmpzdkf sestamibi (CARDIOLITE) injection 30 millicurieStart: 09-16-2019 End: 24-41-6496kwzutgpiju sestamibi (CARDIOLITE) injection 30 kvqdxopuka34 actuat tiotropium 0.0025 mg/actuat inhalation spray (10 sources)AnticholinergicStart: 11-40-9546zpjj 2 puff(s) by inhalation once daily2 puff, Inhalation, DAILY RESP, First dose on Sat08/12/24 at 1915, Until DiscontinuedStart: 75-90-6218edag 1 capsule by inhalation once dailytiotropium (SPIRIVA HANDIHALER) 18 MCG inhalation capsule Indications: Chronic obstructive pulmonary disease, unspecified COPD type (HCC) Inhale 1 capsule into the lungs daily 90 capsule 1 02/06/2024ctiveStart: 96-95-6103pyfp 1 capsule by inhalation once dailytiotropium (SPIRIVA HANDIHALER) 18 MCG inhalation capsule Indications: Chronic obstructive pulmonary disease, unspecified COPD type (HCC) Inhale 1 capsule into the lungs daily 90 capsule 1 12/18/2022ctiveStart: 97-12-2010qqjj 1 capsule by inhalation once dailytiotropium (SPIRIVA HANDIHALER) 18 MCG inhalation capsule Indications: Chronic obstructive pulmonary disease, unspecified COPD type (HCC) Inhale 1 capsule into the lungs daily 90 capsule 1 06/11/2022ctivetriamcinolone acetonide 5 mg/ml topical cream (20 sources)CorticosteroidStart: 09-11-2017 End: 99-98-1100Doxizgcunieyg Acetonide 0.5% EX CREA 09/11/2017 - 09/11/2017 Provider:Start: 32-52-2383hfzdmsgtnviie acetonide 0.5 % topical cream 09/11/2017 apply a thin layer to the affected areas by topical route 3 times per dayTrue Metrix Glucose Meter (11 sources)Start: 53-85-3386Vuqz Metrix Glucose Meter miscellaneous misc 12/14/2016 use for blood sugar testing TID (dx: E11.9)TRUE METRIX GLUCOSE METER MIS (20 sources)Start: 12-14-2016 End: 77-89-5064MXPL METRIX GLUCOSE METER MISC 12/14/2016 - 12/14/2016 Provider: TRUE METRIX GLUCOSE METER MISC (10 sources)Start: 12-14-2016 End: 91-47-5968OAVX METRIX GLUCOSE METER MISC 12/14/2016 - 12/14/2016 Provider: TRUE METRIX GLUCOSE TEST STRI MISC (20 sources)Start: 12-14-2016 End: 70-30-7588AZSS METRIX GLUCOSE TEST STRI MISC 12/14/2016 - 12/14/2016 Provider:TRUE METRIX GLUCOSE TEST STRI MISC (10 sources)Start: 12-14-2016 End: 87-42-9607DSHB METRIX GLUCOSE TEST STRI MISC 12/14/2016 - 12/14/2016 Provider:True Metrix Glucose Test Strip (11 sources)Start: 82-16-1136Qkkf Metrix Glucose Test Strip miscellaneous strip 12/14/2016 use for blood sugar testing TID (dx: E11.9)vancomycin (VANCOCIN) 750 mg in sodium chloride 0.9 % 250 mL IVPB (Gvld7Zfu) (1 source)Start: 08-06-2024 End: 37-08-3256266 mg (13.2 mg/kg), IntraVENous, at 250 mL/hr, Administer over 60 Minutes, EVERY 12 HOURS, First dose on Jenn 08/06/24 at 1615, Use 20mm (Blue) Pyjm8Pdd Adapter Preparation instructions: Attach medication vial to one 20mm (Blue) Yxik2Tpn adapter. Rai fluid bag with adapter, mix, and administer per o rder.VITAMIN D3 400 unit MISC (20 sources)Start: 08-16-2017 End: 33-88-7401HTVLMWF D3 400 unit MISC 08/16/2017 - 08/16/2017 Provider:VITAMIN D3 400 unit MISC (5 sources)Start: 08-16-2017 End: 87-34-5008ASNFZWD D3 400 unit MISC 08/16/2017 - 08/16/2017 Provider: Problems Active Problems Problem ClassificationProblemDateDocumented DateEpisodic/ChronicAbdominal hernia (20 sources)Hernia of anterior abdominal wall; Translations: [Ventral, unspecified, hernia without mention of obstruction or gangrene]Onset: 08-30-2013 51-94-8843AyidehmdVdbsa myocardial infarction (20 sources)Myocardial infarction; Translations: [Non-ST elevation (NSTEMI) myocardial infarction]Onset: 093977-74-1630HtzliehZcrpwpn disorders (20 sources)Anxiety state, unspecified; Translations: [Generalized anxiety disorder]Onset: 390641-08-6240YgmgtpuAhmzvl; peripheral; and visceral artery aneurysms (20 sources)Abdominal aortic aneurysm without rupture; Translations: [Abdominal aortic aneurysm, without rupture]Onset: 884409-25-7974JltnzlkBdtteop dysrhythmias (2 sources)Atrial fibrillation; Translations: [Unspecified atrial fibrillation] Onset: 891336-50-4310MiybiwyXpglzon obstructive pulmonary disease and bronchiectasis (20 sources)Acute exacerbation of chronic obstructive airways disease; Translations: [Chronic obstructive lung disease]Onset: ChronicChronic ulcer of skin (20 sources)Pressure ulcer, other site; Translations: [Chronic ulcer of other specified sites]Onset: 430384-05-2585QqhyuuzEkfwfdbmuy associated with dizziness or vertigo (20 sources)Dizziness; Translations: [Dizziness and giddiness]Onset: 05-27-2014 39-24-1923NcoccwzbKdbbbojhoa heart failure; nonhypertensive (20 sources)Congestive heart failure; Translations: [Acute on chronic diastolic heart failure]Onset: 03-18-2021 Resolved: 44-34-5597LftjmngQerwtvhp atherosclerosis and other heart disease (20 sources)Coronary arteriosclerosis; Translations: [Chronic ischemic heart disease, unspecified]Onset: 11-06-2012 Resolved: 964065-75-6516WxjjsflHgjbaxdmxk and other anemia (2 sources)Anemia, unspecified; Translations: [Anemia, unspecified]Onset: 939735-23-3410IeltkobmBfqeapph mellitus with complications (20 sources)Type 2 diabetes mellitus in obese; Translations: [Diabetes with other specified manifestations, type II or unspecified type, not stated as uncontrolled]Onset: 440137-18-2524WooessrVxaqhzry mellitus without complication (20 sources)Type 2 diabetes mellitus; Translations: [Diabetes mellitus without mention of complication, type IIor unspecified type, not stated as uncontrolled] Onset: 732152-19-4557LsiwgldQkcwygsjz of lipid metabolism (20 sources)Other and unspecified hyperlipidemia; Translations: [Mixed hyperlipidemia]Onset: 196615-48-7814QzafcjhJbtrerpi; convulsions (12 sources)Status epilepticus; Translations: [Epilepsy, unspecified, not intractable, with status epilepticus]Onset: 11-09-2022 Resolved: 062362-41-6010UsqyokmOahxemflm hypertension (20 sources)Unspecified essential hypertension; Translations: [Hypertensive disorder]Onset: 305420-77-9057CsysswcXlczzszj cause codes: Fall (3 sources)Fall; Translations: [Fall from standing, initial encounter]Onset: Fluid and electrolyte disorders (3 sources)Hyponatremia; Translations: [Hypokalemia]Onset: EpisodicGastroduodenal ulcer (except hemorrhage) (5 sources)Gastric ulcer without hemorrhage AND without perforation; Translations: [Gastric ulcer, unspecifiedas acute or chronic, without hemorrhage or perforation]Onset: 285007-63-6175KlajnmzGnuithpdluarp symptoms and ill-defined conditions (20 sources)Incontinence; Translations: [Urinary incontinence]Onset: 04-06-2021 71-33-9046NgzflavWyvzunooldfe with complications and secondary hypertension (12 sources)Hypertensive emergency; Translations: [Hypertensive emergency]Onset: 361237-50-3716AfcoiouErfrliuqf arthritis and osteomyelitis (except that caused by tuberculosis or sexually transmitted disease) (4 sources)Osteomyelitis of left foot; Translations: [Osteomyelitis, unspecified]Onset: 335966-17-4051FcmoltlDzwsfrl and fatigue (20 sources)Other malaise and fatigue; Translations: [Asthenia]Onset: 03-11-2015 73-02-2616LrboujdrVmqp disorders (20 sources)Major depressive affective disorder, recurrent episode, moderate; Translations: [Dysthymic disorder]Onset: 715048-25-0274GilyqjwLbpnpz and vomiting (20 sources)Intractable nausea and vomiting; Translations: [Nausea with vomiting, unspecified]Onset: 14-18-9472LktdrlqzRnvitpdvrho deficiencies (20 sources)Undernutrition; Translations: [Mild protein-calorie malnutrition] Onset: 02-22-2021 Resolved: 414765-39-9207OzzdfzdXqhrgygpw or stenosis of precerebral arteries (20 sources)Bilateral atherosclerosis of carotid arteries; Translations: [Occlusion and stenosis of bilateral carotid arteries]Onset: 05-27-2014 45-99-7638EbbkjpvMflnuagrh or stenosis of precerebral arteries (20 sources)Bilateral atherosclerosis of carotid arteries; Translations: [Atherosclerosis of both carotid arteries]Onset: Osteoarthritis (1 source)Osteoarthritis; Translations: [Osteoarthritis, unspecified osteoarthritis type, unspecified site]ChronicOther and ill-defined cerebrovascular disease (1 source)Posterior reversible encephalopathy syndrome; Translations: [POST REVERSIBLE ENCEPHALOPATHY SYND]Onset: 22-80-9428XznhotzHtnrf and ill-defined cerebrovascular disease (12 sources)Posterior reversible encephalopathy syndrome; Translations: [Posterior reversible encephalopathy syndrome]Onset: 599929-41-7685Komwbbu Other bone disease and musculoskeletal deformities (1 source)Avascular necrosis of bone; Translations: [Avascular necrosis (HCC)] ChronicOther circulatory disease (3 sources)Disorder of carotid artery; Translations: [Bilateral carotid artery disease, unspecified type (HCC)]ChronicOther circulatory disease (20 sources)History of angioplasty; Translations: [Peripheral vascular angioplasty status with implants and grafts]Onset: 759536-57-4949Lawhfml Other circulatory disease (8 sources)Blood vessel finding; Translations: [Presence of other vascular implants and grafts]Onset: 385758-97-7539ZnpmusrMbyzl circulatory disease (4 sources)Disorder of artery; Translations: [Disorder of arteries and arterioles, unspecified]Onset: 821076-59-3193LauyzbrRxudq circulatory disease (1 source)Disorder of arteries and arterioles, unspecified; Translations: [Disorder of arteries and arterioles, unspecified]Onset: 50-69-7590HqsgqtaLerts circulatory disease (7 sources)History of angioplasty; Translations: [S/P angioplasty with stent] Onset: 339061-29-1036NnbskwtiUooie circulatory disease (2 sources)Low blood pressure; Translations: [Hypotension, unspecified] 84-41-2763WolaktjjUkprp circulatory disease (3 sources)Hypotension, unspecified; Translations: [Hypotension, unspecified] Onset: 659174-63-0773PpwuocbfWsejj connective tissue disease (1 source)Pain in left arm; Translations: [Pain of left upper extremity]Episodic Other connective tissue disease (1 source)Chronic pain of left foot; Translations: [Pain in left foot]Onset: 363796-29-8566KvrbxcvpUezql ear and sense organ disorders (3 sources)Otalgia, unspecifiedOnset: 40-69-1106YfirtkxxSrnct gastrointestinal disorders (13 sources)Diarrhea; Translations: [Diarrhea, unspecified]Onset: 07-04-2021 55-97-9425YsbeepdfZfhaj gastrointestinal disorders (1 source)Diarrhea, unspecified; Translations: [Diarrhea, unspecified]Onset: 18-71-4181KbudslhrQjdgx injuries and conditions due to external causes (1 source)Contusion; Translations: [Unspecified multiple injuries, initial encounter]EpisodicOther injuries and conditions due to external causes (1 source)Other injury of unspecified body region, initial encounter; Translations: [Open wound(s) (multiple)of unspecified site(s), without mention of complication]Onset: 082235-04-0192DlqzhguyCjeew lower respiratory disease (20 sources)CoughOnset: 53-00-2851XbmnpphxUqgsa lower respiratory disease (5 sources)Shortness of breathOnset: 81-58-3478RrtnglnlYsurx lower respiratory disease (1 source)Acute pulmonary edema; Translations: [Acute pulmonary edema (HCC)] EpisodicOther lower respiratory disease (9 sources)Hypoxia; Translations: [Hypoxemia]Onset: 032797-89-2211Yonqexer Other lower respiratory disease (2 sources)Shortness of breath; Translations: [Shortness of breath]Onset: 19-57-3253JdurxhwnAlnwg nervous system disorders (4 sources)Other chronic pain; Translations: [Other chronic pain]Onset: 94-93-2430WavjyqvYfdlt nervous system disorders (13 sources)Chronic pain syndrome; Translations: [Chronic pain syndrome]Onset: 700501-55-9195TnjynkyDxcgv nervous system disorders (4 sources)Neuropathy; Translations: [Polyneuropathy, unspecified]Onset: 320595-25-1251AghfuocByoek nervous system disorders (1 source)Chronic pain syndrome; Translations: [Chronic pain syndrome]Onset: 09-57-2961WcaearxFwlxy non-traumatic joint disorders (20 sources)Hip pain; Translations: [Pain in right hip]Onset: 06-23-0641Ybikbyfr Other nutritional; endocrine; and metabolic disorders (20 sources)Obesity, unspecifiedOnset: 10-51-5167XbuviljLriur nutritional; endocrine; and metabolic disorders (10 sources)Body Mass Index 34.0-34.9, adultOnset: 41-86-7672CufhmyvHybfg nutritional; endocrine; and metabolic disorders (4 sources)Body Mass Index 39.0-39.9, adultOnset: 26-89-3705SmzmtuxJrquo nutritional; endocrine; and metabolic disorders (4 sources)Body Mass Index 40.0-44.9, adultOnset: 15-41-6918XorzxreAazkr nutritional; endocrine; and metabolic disorders (4 sources)Body Mass Index 33.0-33.9, adultOnset: 40-53-8776PtjgkkiFekwv nutritional; endocrine; and metabolic disorders (4 sources)Body Mass Index 32.0-32.9, adultOnset: 25-05-9473DfghuhaAexur nutritional; endocrine; and metabolic disorders (20 sources)Simple obesity ; Translations: [Obesity, unspecified]Onset: 27-92-9222LjoxhovYywuu nutritional; endocrine; and metabolic disorders (9 sources)Finding of body mass index; Translations: [Body mass index [BMI]] Onset: 85-04-4211UupugkyXtumn nutritional; endocrine; and metabolic disorders (12 sources)Severe obesity; Translations: [Morbid (severe) obesity due to excess calories]Onset: 524262-63-0105NeuobpqSrjhq screening for suspected conditions (not mental disorders or infectious disease) (20 sources)Encounter for screening for diabetes mellitus; Translations: [Thallium stress test abnormal]Onset: 01-22-2013 Resolved: 877456-29-0707WtdqefkxJqhvq upper respiratory disease (4 sources)Allergic rhinitis, cause unspecifiedOnset: 99-89-0987LsunlvxEyojz upper respiratory disease (18 sources)Perennial allergic rhinitis with seasonal variation; Translations: [Assessment of Allergic RhinitisPerennial with Seasonal Variation]Onset: 64-54-4921HvnbsuyGnhci upper respiratory disease (5 sources)Allergic rhinitis; Translations: [Allergic rhinitis, unspecified] Onset: 823087-03-6947CdnsqotNdxcnl media and related conditions (9 sources)Chronic suppurative otitis media of left middle ear; Translations: [Other chronic suppurative otitis media, left ear]Onset: 565965-24-9276 ChronicPeripheral and visceral atherosclerosis (20 sources)Peripheral vascular disease, unspecified; Translations: [Atherosclerosis of arteries of the extremities]Onset: ChronicPhlebitis; thrombophlebitis and thromboembolism (20 sources)H/O: thrombosis; Translations: [Personal history of other venous thrombosis and embolism]93-32-2946CctuhscoTakzxhep; pneumothorax; pulmonary collapse (1 source)Bilateral pleural effusion; Translations: [Pleural effusion, not elsewhere classified]EpisodicPulmonary heart disease (12 sources)Pulmonary hypertension; Translations: [Pulmonary hypertension, unspecified]Onset: 494604-55-8446MehqdwsHstjkthn codes; unclassified (20 sources)Tobacco user; Translations: [Tobacco abuse]Onset: 05-27-2014 86-32-7917LeacqabXhvgnzkf codes; unclassified (2 sources)Persistent insomnia; Translations: [Persistent Insomnia]Onset: 75-46-3515AuvdxlwPhsldzjx codes; unclassified (4 sources)Restlessness and agitation; Translations: [Restlessness and agitation]Onset: 838767-74-8021FvhedpsKzhronmo codes; unclassified (1 source)Restlessness and agitation; Translations: [Restlessness and agitation] Onset: 41-66-3749TezsslqNlftvmqd codes; unclassified (20 sources)Tobacco user; Translations: [Tobacco use]Onset: EpisodicResidual codes; unclassified (1 source)Tobacco use; Translations: [Tobacco use]Onset: 43-34-6974Bqswtudw Residual codes; unclassified (1 source)Pain; Translations: [Pain, unspecified]20-09-9755DbeathxnZqpzzkhk codes; unclassified (1 source)Other specified personal risk factors, not elsewhere classified; Translations: [Other specified personal risk factors, not elsewhere classified] Onset: 12-67-3024MvzbfhtkHvnkwdgumug failure; insufficiency; arrest (adult) (20 sources)Acute on chronic hypoxemic respiratory failure; Translations: [Acute and chronic respiratory failure with hypoxia]Onset: 04-23-2019 Resolved: 505850-97-9871VnvhudwMomrybisqlz failure; insufficiency; arrest (adult) (20 sources)Acute hypoxemic and hypercapnic respiratory failure; Translations: [Acute on chronic hypercapnic respiratory failure]Onset: Spondylosis; intervertebral disc disorders; other back problems (5 sources)Degeneration of lumbar intervertebral disc; Translations: [Lumbar spondylosis]Onset: 088260-14-4054BvjrlziChpthrtul-ukzvztu disorders (20 sources)Tobacco use disorder; Translations: [Tobacco dependence syndrome] Onset: 798237-72-3729KdptuwvGubjqoacsmh injury; contusion (3 sources)Right knee abrasion; Translations: [Abrasion, right knee, initial encounter]EpisodicSyncope (2 sources)Near syncope; Translations: [Syncope and collapse]EpisodicThyroid disorders (20 sources)Hypothyroidism; Translations: [Unspecified acquired hypothyroidism] Onset: 968934-24-4657OhzhhgeDotbaucnziwg (20 sources)Body Mass Index 35.0-35.9, adult; Translations: [Body Mass Index 39.0-39.9, adult]Onset: 33-24-1008SlskpruRevsrlvvzlsk (1 source)Contusion of left hand; Translations: [Contusion of left hand, initial encounter]Unclassified (1 source)COVID-19; Translations: [COVID-19]Onset: Unclassified (4 sources)History of cardiac catheterization; Translations: [S/P cardiac cath] Onset: 276181-35-8343Opwfcbekyxge (1 source)CONTACT W/AND (SUSP) EXPOS COVID-19; Translations: [CONTACT W/AND (SUSP) EXPOS COVID-19]Onset: 91-22-2300Vrhhqzycammm (1 source)Weakness - GeneralizedOnset: 08-36-4694Ccxuidblpzyd (1 source)Pressure-induced deep tissue damage of left heel; Translations: [Pressure-induced deep tissue damage of left heel]Onset: 60-49-3121Cnoyehbgwncn (1 source)Wound CheckOnset: 67-22-2163Ijuthhvxzevh (1 source)Decreased Oxygen Level With No SymptomsOnset: 09-70-2889Iebiooszfayy (1 source)Musculoskeletal ProblemOnset: 17-12-4319Urylzvpgvlap (1 source)Exposure Coronavirus (Covid-19)Onset: 66-24-2895Mylyvaoyeith (1 source)Body Aches, Chills, Runny NoseOnset: 79-56-3639Iwdktpawrgcr (1 source)BLE pain, worse over past couple days. CTA Deep profunda is the main supply of both lower extremities, severe stenosis at the right deep profunda artery, Aortobiiliac bypass graft is widely patent. Both SFA and left femoral popliteal bypass grafts are occluded.Onset: 29-70-7682Gpnkxka tract infections (20 sources)Urinary tract infectious disease; Translations: [Escherichia coli urinary tract infection]Onset: 259813-29-1032Xymkbnzq Past or Other Problems Problem ClassificationProblemDateDocumented DateEpisodic/ChronicAbdominal pain (20 sources)Abdominal pain, other specified site; Translations: [Abdominal pain] Onset: 85-03-9058DyglggumRcygtbbvjwukli/social admission (20 sources)Counseling procedure with explicit context; Translations: [Relationship problems]Onset: 832538-13-8271UcyyoggcUxlgzqe obstructive pulmonary disease and bronchiectasis (20 sources)Bronchitis; Translations: [Bronchitis, not specified as acute or chronic]Onset: 72-38-2015MsklstzfZgjnbgrtceiei of surgical procedures or medical care (20 sources)Non-healing surgical wound; Translations: [Other postoperative infection]Onset: 941736-82-1268SobggfwkQjdjppbf atherosclerosis and other heart disease (20 sources)Recurrent coronary arteriosclerosis after percutaneous transluminal coronary angioplasty; Translations: [Presence of coronary angioplasty implant and graft]Onset: 602343-69-3580PrgyskulWtxrfxta injury or internal injury (20 sources)Unspecified injury of unspecified part of pancreas, initial encounter; Translations: [Splenic hematoma]Onset: 141950-65-5058Zbcputqd Deficiency and other anemia (6 sources)Anemia; Translations: [Anemia, unspecified]Onset: 01-28-2023 23-19-1023CvidcrzzSucjmdqh mellitus without complication (15 sources)Hyperglycemia; Translations: [Hyperglycemia, unspecified]Onset: 551334-97-5958IpiszfkvMwxyvtye of mouth; excluding dental (4 sources)Oral lesion; Translations: [Other lesions of oral mucosa]Onset: 035266-23-0952KgjchclcMqpoaoaxr of teeth and jaw (10 sources)Acute apical periodontitis of pulpal originOnset: 56-09-1290Jjbgsyfo E Codes: Fall (20 sources)Fall; Translations: [Unspecified fall, initial encounter]Onset: 04-06-2021 Resolved: 07-95-7467QuyeqjqlPvltsnqu; convulsions (1 source)Unspecified convulsions; Translations: [UNSPECIFIED CONVULSIONS]Onset: 68-34-7276SmcyaajeLabtlioflxoucjqi hemorrhage (20 sources)Acute lower gastrointestinal hemorrhage; Translations: [Gastrointestinal hemorrhage, unspecified]Onset: 058778-61-8850Vhcxkcah Immunizations and screening for infectious disease (20 sources)Need for prophylactic vaccination and inoculation against influenza; Translations: [Contact with and (suspected) exposure to other viral communicable diseases]Onset: 02-10-2015 Resolved: 097319-89-0612AldbvrihBmrmxjpjzlwv; infection of eye (except that caused by tuberculosis or sexually transmitteddisease) (20 sources)Acute atopic conjunctivitis; Translations: [Acute atopic conjunctivitis]Onset: 51-55-4251PnqgejpvEpgxccj examination/evaluation (8 sources)Laboratory examination, unspecifiedOnset: 58-21-0814EmceqwqhDvpm disorders (20 sources)Major depressive disorder, single episode, unspecified; Translations: [Mood disorders]Onset: 10-22-2022 Resolved: 278281-73-9371Qqbjonfjyjd chest pain (8 sources)Chest pain; Translations: [Chest pain, unspecified]Onset: 01-19-2024 59-03-8895OfihgsigBkih wounds of extremities (6 sources)Open wound of foot, excluding toe(s); Translations: [Unspecified open wound, unspecified foot, initial encounter]Onset: 401666-93-8897Fpqrawsi Open wounds of head; neck; and trunk (13 sources)Open wound(s) (multiple) of unspecified site(s), without mention of complication; Translations: [Laceration of nose]Onset: EpisodicOther aftercare (1 source)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; Translations: [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]Onset: 64-28-3299VrcqrjjhQuzed bone disease and musculoskeletal deformities (10 sources)Other disorders of bone and cartilageOnset: 79-83-2386JfaqmfchJkfcz circulatory disease (5 sources)Pulmonary congestion ; Translations: [Other specified symptoms and signs involving the circulatory and respiratory systems]Onset: 09-21-2022 25-81-4644QkrnzxtcFmuao circulatory disease (8 sources)Ischemia of left lower extremity; Translations: [Other disorder of circulatory system]Onset: 485721-58-9170YxqcstdsJqwiy circulatory disease (4 sources)Disorder of cardiovascular system; Translations: [Unspecified disorder of circulatory system]Onset: 800279-48-6917QtrsewctJeiqc circulatory disease (2 sources)Other disorder of circulatory system; Translations: [Other disorder of circulatory system]Onset: 21-60-4272SrfkxkupSaxna connective tissue disease (20 sources)Pain in limbOnset: 82-91-7698AvvnoyknJpqes connective tissue disease (15 sources)Spasm; Translations: [Other muscle spasm]Onset: 151314-71-8649 EpisodicOther connective tissue disease (9 sources)Pain of left hand; Translations: [Pain in left hand]Onset: 06-11-2022 05-44-6081DqfwubynCcwfw connective tissue disease (9 sources)Intermittent claudication; Translations: [Pain in leg, unspecified] Onset: 955213-60-8993FxijgcslHxqvk connective tissue disease (10 sources)Pain in lower limb; Translations: [Pain in leg, unspecified]Onset: 749009-16-7198OxvtuenyDrfre connective tissue disease (4 sources)Disorder of musculoskeletal system; Translations: [Soft tissue disorder, unspecified]Onset: 378295-34-1749BfzzylvuTlqgo connective tissue disease (1 source)Other specified soft tissue disorders; Translations: [Other specified soft tissue disorders]Onset: 76-88-5822YvqzccubXnzou connective tissue disease (2 sources)Pain in leg, unspecified; Translations: [Pain in leg, unspecified] Onset: 28-21-8013CnbllvurDunsb ear and sense organ disorders (12 sources)Excessive cerumen in ear canal ; Translations: [Impacted cerumen, bilateral]Onset: 080103-58-6334FldffbpmMbgpq fractures (1 source)Unspecified fracture of second lumbar vertebra, initial encounter for closed fracture; Translations: [UNS FX SECOND LUMB VERT INIT PAYAM FX]Onset: 89-25-9539AorgsyldPioux fractures (4 sources)Closed fracture of pelvis; Translations: [Fracture of unspecified parts of lumbosacral spine and pelvis, initial encounter for closed fracture] Onset: 985486-57-0561VqtmceduQahmy gastrointestinal disorders (13 sources)Abdominal mass; Translations: [Right lower quadrant abdominal swelling, mass and lump]Onset: 631622-11-8946MyzgbyqtFeubh infections (8 sources)Unspecified infectious and parasitic diseasesOnset: 10-29-2017 EpisodicOther inflammatory condition of skin (4 sources)Erythema; Translations: [Erythematous condition, unspecified]Onset: 394297-17-9530QnuztiqoXjurs injuries and conditions due to external causes (10 sources)Insect bite, nonvenomous, of other, multiple, and unspecified sites, without mention of infectionOnset: 78-60-3867IcsghhdhStvsm injuries and conditions due to external causes (5 sources)Closed injury of head; Translations: [Unspecified injury of head, initial encounter]Onset: 63-38-6799UypojivpLrfzg lower respiratory disease (20 sources)Dyspnea; Translations: [Shortness of breath]Onset: 11-23-2021 18-68-9493YaencqkrTikus lower respiratory disease (17 sources)Cough; Translations: [Cough]Onset: 07-25-2021 Resolved: 977998-17-4806AtvwoxmpPgdpn lower respiratory disease (14 sources)Respiratory distress; Translations: [Acute respiratory distress] Onset: 584828-12-2515GfrapfsaCzbpf lower respiratory disease (20 sources)Chronic cough; Translations: [Chronic cough]Onset: 03-13-2022 06-45-9494DhdvsditMwzjv lower respiratory disease (4 sources)Hypoxemia; Translations: [Hypoxemia]Onset: EpisodicOther nervous system disorders (5 sources)Numbness; Translations: [Anesthesia of skin]Onset: 05-16-2024 71-16-4528TciuhwtkDpnrv nervous system disorders (1 source)Paresthesia of skin; Translations: [Paresthesia of skin]Onset: 74-86-9280SlxrimcgBvhrp non-traumatic joint disorders (20 sources)Pain in joint, shoulder regionOnset: 04-54-1852OwtrutwaSwuki non- traumatic joint disorders (20 sources)Shoulder pain; Translations: [Pain in unspecified limb]Onset: 77-81-7838TccfyhreMxefc non-traumatic joint disorders (12 sources)Pain in right hip joint; Translations: [Pain in right hip]Onset: 66-04-3862ZbtgygdiBwjmw non-traumatic joint disorders (17 sources)Pain in right knee; Translations: [Pain in joint, lower leg]Onset: 228018-60-3280UrejsqyuAojlp non-traumatic joint disorders (15 sources)Chronic pain of left upper limb; Translations: [Pain in left shoulder]Onset: 308985-51-9001DeymbxkxMkbiz non-traumatic joint disorders (4 sources)Pain in right hip; Translations: [Pain in right hip]Onset: 11-17-2021 EpisodicOther non-traumatic joint disorders (2 sources)Pain in left hip; Translations: [Pain in left hip]Onset: 12-18-2021 EpisodicOther nutritional; endocrine; and metabolic disorders (1 source)Finding of body mass index; Translations: [Body mass index [BMI]] Onset: 89-87-8165TajiebgxPhvzc nutritional; endocrine; and metabolic disorders (5 sources)Weight decreased; Translations: [Abnormal weight loss]Onset: 654785-21-8772VuhpzhnkYvoda skin disorders (20 sources)Inflammatory dermatosis; Translations: [Contact dermatitis and other eczema, unspecified cause]Onset: 87-65-1915NlicqfyzRvjlt skin disorders (9 sources)Mass of lower limb; Translations: [Localized swelling, mass and lump, left lower limb]Onset: 996157-01-9072SfujphioQjcxk skin disorders (4 sources)Lesion of skin of foot; Translations: [Changes in skin texture]Onset: 674724-26-9931UkyzuegwJbskv skin disorders (4 sources)Xeroderma; Translations: [Xerosis cutis]Onset: 816504-09-6523 EpisodicOther skin disorders (1 source)Changes in skin texture; Translations: [Changes in skin texture]Onset: 45-73-7486CpfsvoblQzgdh upper respiratory infections (20 sources)Acute upper respiratory infections of unspecified site; Translations: [Acute sinusitis]Onset: 83-37-8481KwktxyaaMchqhn media and related conditions (9 sources)Acute suppurative otitis media without spontaneous rupture of ear drum; Translations: [Acute suppurative otitis media without spontaneous rupture of ear drum, left ear]Onset: 623277-58-6915NqouzmjtYwfqxahcxd disorders (not diabetes) (20 sources)Mass of pancreas; Translations: [Other specified diseases of pancreas]Onset: 784615-66-7219CisrsavmEtwjwgjtu (except that caused by tuberculosis or sexually transmitted disease) (20 sources)Infective pneumonia; Translations: [Community acquired pneumonia] Onset: 473976-15-5340GghbgvseTzqbldoon by other medications and drugs (20 sources)Drug intolerance; Translations: [Other specified health status] Onset: 490198-19-0530UfczyqswBsbkzrpwm heart disease (9 sources)Pulmonary embolism; Translations: [Other pulmonary embolism without acute cor pulmonale]Onset: 643858-75-9872NooqalfsMmbvgvjo codes; unclassified (20 sources)Altered mental status; Translations: [Altered mental status, unspecified]Onset: 626136-43-7505RofqgiszAarhiawy codes; unclassified (2 sources)Other general symptoms and signs; Translations: [Suspected COVID-19 virus infection]Onset: 07-17-2019 Resolved: 196631-48-6297KjlfqjmsOyizpwkh codes; unclassified (20 sources)History of cardiac catheterization; Translations: [Other specified postprocedural states]Onset: 704820-27-9489AlgyoyiuYefacqly codes; unclassified (20 sources)Edema of lower extremity; Translations: [Localized edema]Onset: 134446-96-0442CddnoirwHgqeoysm codes; unclassified (13 sources)Difficulty sleeping ; Translations: [Sleep disorder, unspecified] Onset: 813001-96-2138AsrxlgavLwhfcxwl codes; unclassified (20 sources)Insomnia; Translations: [Insomnia, unspecified]Onset: 06-22-2021 77-36-0415TagmmqvnUjjoisft codes; unclassified (11 sources)Tobacco use and exposure - finding; Translations: [Tobacco use] Onset: 54-01-0160TgiwwinpCmnucqqi codes; unclassified (12 sources)Postoperative state; Translations: [Other specified postprocedural states]Onset: 739305-10-8583RdcqvkiyLvxzfxvi codes; unclassified (4 sources)Transient alteration of awareness; Translations: [Transient alteration of awareness]Onset: 321039-03-5065UpigkbocWteucdlo codes; unclassified (4 sources)Acute insomnia; Translations: [Insomnia, unspecified]Onset: 645981-76-1406YiiikcnfZbnzndmd codes; unclassified (5 sources)Unable to perform personal care activity; Translations: [Other specified health status]Onset: 126664-71-9782SjldlfxsChdfuthc codes; unclassified (1 source)Other specified health status; Translations: [Other specified health status]Onset: 30-68-1613YxenwzdtNmwosupacog failure; insufficiency; arrest (adult) (20 sources)Acute hypoxemic and hypercapnic respiratory failure; Translations: [Acute respiratory failure with hypoxia]Onset: 06-05-2018 Resolved: 826190-53-8187LzahztfcDdwx and subcutaneous tissue infections (20 sources)Cellulitis of left lower limb; Translations: [Cellulitis of left lower limb]Onset: 26-24-7910CdidazbdWojfs and face fractures (4 sources)Closed fracture of nasal bones; Translations: [Fracture of nasal bones, initial encounter for closed fracture]Onset: 525944-15-6671Nxirprbs Spondylosis; intervertebral disc disorders; other back problems (20 sources)Backache, unspecified; Translations: [Lumbago]Onset: 02-10-2015 15-70-8384SjpbnygbPxxjcjy and strains (8 sources)Strain of muscle and/or tendon of thigh; Translations: [Strain of tendon of medial thigh muscle]Onset: 18-09-9233CgxikwqbBihmrmnds-related disorders (20 sources)Cigarette smoker ; Translations: [Poisoning by opiate analgesic drug]Onset: 742397-82-1798TbhkobmzDloikrl disorders (20 sources)Disorder of thyroid gland; Translations: [Disorder of thyroid, unspecified] Resolved: 074331-83-8248HaxgalnrBqdcyoeqccsh (10 sources)Insomnia, unspecifiedOnset: 51-65-8369EoamttqwQsbglvaickoi (20 sources)Finding of body mass index; Translations: [Body Mass Index]Onset: 38-89-6659Xddcghpdkiat (20 sources)Questionnaires Phq-9 Total Score; Translations: [Questionnaires Phq- 9 Total Score]Onset: 84-11-8372Pcemivaakuju (20 sources)Fagerstrom Score; Translations: [Fagerstrom Score]Onset: 01-12-2019 Unclassified (20 sources)Patient encounter status; Translations: [Colon cancer screening] Onset: 03-17-2015 Resolved: 827684-54-9001Kjzuypeurwvz (2 sources)Onset: 029287-07-0713Ebgob infection (19 sources)COVID-19; Translations: [Pneumonia due to other virus not elsewhere classified]Onset: 866756-46-2280Axxwqeac Results Test NameValueInterpretationReference RangeFacilityBEDSIDE GLUCOSEon 01-01-2025 Glucose [Mass/Vol]251 mg/kPGcwu25-42UbhZdpuicFisher-Titus Medical CenterComment on above: Performed By: #### BEDG ####[facility] ([address] VIRGlucose [Mass/Vol]199 mg/kXNlih54-80WefKefojoFisher-Titus Medical CenterComment on above:Performed By: #### BEDG ####[facility] ([address] [place] VIRBedside Glucose *Place/Obtain serum glucose if >500 per glucometer.on 22-84-9438Wlzqscd [Mass/Vol]251 mg/bCWzrz66 - 99 mg/dLLakeHealth Beachwood Medical CenterInterpretation and review of laboratory resultsAbnoDepartment of Veterans Affairs Medical Center-Wilkes BarreGlucose [Mass/Vol]199 mg/gUHtbg02 - 99 mg/dLLakeHealth Beachwood Medical Center Interpretation and review of laboratory resultsAbnoSSM Health St. Mary's HospitalGlucose [Mass/Vol]189 mg/yQNurf80 - 99 mg/dLLakeHealth Beachwood Medical CenterInterpretation and review of laboratory resultsAbnoDepartment of Veterans Affairs Medical Center-Wilkes BarreGlucose [Mass/Vol]242 mg/iGQdzp56 - 99 mg/dL [facility] CenterInterpretation and review of laboratory resultsAbnoal Lancaster General HospitalGlucose [Mass/Vol]321 mg/oBXtrg70 - 99 mg/dLLakeHealth Beachwood Medical CenterInterpretation and review of laboratory results AbnormalProEvangelical Community HospitalCBC WITH AUTO DIFFERENTIAL on 19-52-9007HOASWELRF ABSOLUTE COUNT (10*3/UL) BY AUTOMATED COUNT0.0 10*3/uL Normal0.0-0.2PKettering Health – Soin Medical Center on above:Result Comment: This is an appended report. These results have been appended to a previously preliminary verified report.Performed By: #### CBCA ####[facility] ([facility])[address] [facility] [place], [id number] VIRBASOPHILS RELATIVE PERCENT BY AUTOMATED COUNT0.3 %NormalSelect Medical Specialty Hospital - [facility] on above:Result Comment: This is an appended report. These results have been appended to a previously preliminary verified report.Performed By: #### CBCA ####[facility] ([facility])[address] [place], [place] [address]E.[place], [id number] VIR CELLAVISION ANISOCYTOSIS IN BLOOD BY LIGHT MICROSCOPY2+[facility] on above:Result Comment: This is an appended report. These results have been appended to a previously preliminary verified report.Performed By: #### CBCA ####[facility] ([facility])[address] [place] [address], [id number] VIRCELLAVISION DIFFERENTIAL TYPEAUTOMATED DIFFERENTIAL [facility] on above:Result Comment: This is an appended report. These results have been appended to a previously preliminary verified report.Performed By: #### CBCA ####[facility] ([facility])[address] [place], [place] [address]E.[place], [id number] VIRCELLAVISION ELLIPTOCYTES IN BLOOD BY LIGHT MICROSCOPY1+NormalSelect Medical Specialty Hospital - [facility] on above:Result Comment: This is an appended report. These results have been appended to a previously preliminary verified report.Performed By: #### CBCA ####[facility] ([facility])[address] [place] [address] AVE.[facility]T, [id number] VIR CELLAVISION RBC FRAGMENTS1+NormalFisher-Titus Medical CenterComselect specialty hospital-[place] on above: Result Comment: This is an appended report. These results have been appended to a previously preliminary verified report.Performed By: #### CBCA ####[facility] ([address] [id number] VIR Eosinophils (Bld) [#/Vol]0.0 10*3/uLNormal0.0-0.4[facility] Comment on above:Result Comment: This is an appended report. These results have been appended to a previously preliminary verified report.Performed By: #### CBCA ####[facility] ([address] [address] VIREOSINOPHILS RELATIVE PERCENT BY AUTOMATED COUNT0.0 %NormalFisher-Titus Medical CenterComment on above:Result Comment: This is an appended report. These results have been appended to a previously preliminary verified report. Performed By: #### CBCA ####[facility] ([address], [id number] VIRErythrocyte distribution width (RBC) [Ratio]24.1 % High11.5-15ProGrace Medical CenterComment on above:Performed By: #### CBCA ####[facility] ([address], [id number] VIRHematocrit (Bld) [Volume fraction]37.2 %Iikwps96-20BkdLguijpGrace Medical CenterComment on above:Performed By: #### CBCA ####[facility] ([address] [id number] VIRHemoglobin (Bld) [Mass/Vol] 11.7 g/uZCwzvsr33.7-15.5PMartins Ferry HospitalComment on above:Performed By: #### CBCA ####[facility] ([address] [id number] VIRLYMPHOCYTES ABSOLUTE COUNT (10*3/UL) BY AUTOMATED COUNT 0.3 10*3/uLLow1.0-3.5PMartins Ferry HospitalComment on above:Result Comment: This is an appended report. These results have been appended to a previously preliminary verified report.Performed By: #### CBCA ####[facility] ([address], [id number] VIRLYMPHOCYTES RELATIVE PERCENT BY AUTOMATED COUNT3.0 %NormalProGrace Medical CenterComselect specialty hospital-[place] on above:Result Comment: This is an appended report. These results have been appended to a previously preliminary verified report.Performed By: #### CBCA ####[facility] ([address], [id number] VIRMCH (RBC) [Entitic mass]25.8 hmCjm69-87VhrOknsrzFisher-Titus Medical CenterComment on above:Performed By: #### CBCA ####[facility] ([address], [id number] VIRMCHC (RBC) [Mass/Vol]31.3 g/yPBbg62-48 [facility]-Titus Medical CenterComment on above:Performed By: #### CBCA ####[facility] ([address], [id number] VIRMCV (RBC) [Entitic vol]82 qJEegkot91-921XmiTohtcqFisher-Titus Medical CenterComment on above: Performed By: #### CBCA ####[facility] ([address], [id number] VIRMONOCYTES ABSOLUTE COUNT (10*3/UL) BY AUTOMATED COUNT0.3 10*3/uLNormal0.0-0.9[facility] on above:Result Comment: This is an appended report. These results have been appended to a previously preliminary verified report.Performed By: #### CBCA ####[facility] ([address], [id number] VIRMONOCYTES RELATIVE PERCENT BY AUTOMATED COUNT2.7 %NormalProGrace Medical CenterComment on above:Result Comment: This is an appended report. These results have been appended to a previously preliminary verified report.Performed By: #### CBCA ####[facility] ([facility])[address] [place], [place] [address]E.[place], [id number] VIRNEUTROPHILS ABSOLUTE COUNT BY AUTOMATED COUNT9.7 10*3/uLHigh1.5-6.6ProGrace Medical CenterComment on above:Result Comment: This is an appended report. These results have been appended to a previously preliminary verified report. Performed By: #### CBCA ####[facility] ([address], [id number] VIRNEUTROPHILS RELATIVE PERCENT BY AUTOMATED COUNT94.0 %NormalFisher-Titus Medical CenterComment on above:Result Comment: This is an appended report. These results have been appended to a previously preliminary verified report.Performed By: #### CBCA ####[facility] ([address], [id number] VIRPlatelet mean volume (Bld) [Entitic vol]7.3 fLNormal7-12PMartins Ferry HospitalComment on above:Performed By: #### CBCA ####[facility] ([address], [id number] VIRPlatelets (Bld) [#/Vol]305 10*3/uWGiyhtc014-228MigIdqkiy Fremont HospitalComment on above:Performed By: #### CBCA ####[facility] ([address], [id number] VIRRBC COUNT4.52 X10E12/LNormal3.8-5.2PMartins Ferry HospitalComment on above:Performed By: #### CBCA ####[facility] ([address], [id number] VIRWBC (Bld) [#/Vol]10.3 10*3/uLNormal4-11ProGrace Medical CenterComment on above:Performed By: #### CBCA ####[facility], [id number] [place] [address] AVE.[place], [id number] VIRCBC auto differentialon 17-43-3090Fovhmrbwvest Ql (Bld)2+[facility] SystemComment on above:This is an appended report. These results have been appended to a previously preliminary verified report.Basophils (Bld) [#/Vol]0 10*3/uL0.0 - 0.2 10*3/uL [facility] CenterComment on above:This is an appended report. These results have been appended to a previously preliminary verified report. Basophils/100 WBC (Bld)0.3 %[facility] Medical CenterComment on above:This is an appended report. These results have been appended to a previously preliminary verified report.Complement C3 fragment (RBC) [Mass/Vol]1+[facility] Comment on above:This is an appended report. These results have been appended to a previously preliminary verified report.Differential cell count method Nom (Bld)AUTOMATED DIFFERENTIALLakeHealth Beachwood Medical CenterComment on above:This is an appended report. These results have been appended to a previously preliminary verified report.Elliptocytes LM Ql (Bld)1+[facility] SystemComment on above:This is an appended report. These results have been appended to a previously preliminary verified report.Eosinophils (Bld) [#/Vol]0 10*3/uL0.0 - 0.4 10*3/uLGuernsey Memorial Hospital SystemComment on above:This is an appended report. These results have been appended to a previously preliminary verified report. Eosinophils/100 WBC (Bld)0 %[facility] Medical CenterComment on above:This is an appended report. These results have been appended to a previously preliminary verified report.Erythrocyte distribution width (RBC) [Ratio]24.1 %High11.5 - 15 %[facility] Medical CenterHematocrit (Bld) [Volume fraction]37.2 %35 - 47 % [facility] Medical CenterHemoglobin (Bld) [Mass/Vol]11.7 g/dL11.7 - 15.5 g/dL [facility] CenterInterpretation and review of laboratory resultsAbnormal [facility] Medical CenterLymphocytes (Bld) [#/Vol]0.3 10*3/uLLow1.0 - 3.5 10*3/uL [facility] CenterComment on above:This is an appended report. These results have been appended to a previously preliminary verified report. Lymphocytes/100 WBC (Bld)3 %[facility] Medical CenterComment on above:This is an appended report. These results have been appended to a previously preliminary verified report.MCH (RBC) [Entitic mass]25.8 pgLow27 - 34 [facility] CenterMCHC (RBC) [Mass/Vol]31.3 g/dLLow32 - 36 g/dLLakeHealth Beachwood Medical CenterMCV (RBC) [Entitic vol]82 fL80 - 100 [facility] HospitalMonocytes (Bld) [#/Vol]0.3 10*3/uL0.0 - 0.9 10*3/uLLakeHealth Beachwood Medical CenterComment on above:This is an appended report. These results have been appended to a previously preliminary verified report.Monocytes/100 WBC (Bld)2.7 %[facility] Comment on above:This is an appended report. These results have been appended to a previously preliminary verified report.Neutrophils (Bld) [#/Vol]9.7 10*3/uL High1.5 - 6.6 10*3/uLLakeHealth Beachwood Medical CenterComment on above:This is an appended report. These results have been appended to a previously preliminary verified report.Neutrophils/100 WBC (Bld)94 %[facility] Medical CenterComment on above:This is an appended report. These results have been appended to a previously preliminary verified report.Platelet mean volume (Bld) [Entitic vol]7.3 fL7 - 12 [facility] HospitalPlatelets (Bld) [#/Vol]305 10*3/uLLakeHealth Beachwood Medical CenterRBC (Bld) [#/Vol]4.52 10*6/uLLakeHealth Beachwood Medical CenterWBC LM Ql (Sput)10.3 [facility] HospitalCOMPREHENSIVE METABOLIC PANELon 88-70-6946Udmtaog [Mass/Vol]3.3 g/dLNormal3.2-5.3PMartins Ferry Hospital Comment on above:Performed By: #### CMP ####[facility] ([address] [place] [address] VIRALP [Catalytic activity/Vol]78 U/L Ydvwhu20-456YldKeqinnFisher-Titus Medical CenterComment on above:Performed By: #### CMP ####[facility] ([address], [place] [address] VIRALT [Catalytic activity/Vol]12 U/LNormal<=31PMartins Ferry Hospital Comment on above:Performed By: #### CMP ####[address] [place] [address] VIRAnion gap [Moles/Vol]12 mmol/L Normal5-15[facility]-Titus Medical CenterComment on above:Performed By: #### CMP ####[address], [place] [address] VIRAST [Catalytic activity/Vol]16 U/LNormal<=41[facility] Comment on above:Performed By: #### CMP ####[facility] ([address] [place] [address] VIRBilirubin [Mass/Vol]0.8 mg/dLNormal 0.3-1.2PMartins Ferry HospitalComment on above:Performed By: #### CMP ####[facility] ([address], [place] [address] VIRCalcium [Mass/Vol]8.8 mg/dLNormal8.5-10.5PMartins Ferry Hospital Comment on above:Performed By: #### CMP ####[facility] ([address] [place] [address] VIRChloride [Moles/Vol]97 mmol/LLow 98-109ProGrace Medical CenterComment on above:Performed By: #### CMP ####[facility] ([facility])[address] [place] [address] AV.[place], [place] [address] VIRCO2 [Moles/Vol]32 mmol/CVxwxfp39-61FnwWvaynj [facility]ont HospitalComment on above:Performed By: #### CMP ####[facility] ([address] [place] [address] VIRCreatinine [Mass/Vol]0.70 mg/dLNormal 0.40-1.00ProGrace Medical CenterComment on above:Result Comment: METHOD TRACEABLE TO IDMS STANDARDPerformed By: #### CMP ####[facility] ([address] [place] [address] VIREGFR (CKD-EPI) NON-RACE DEPENDENT>^90Normal>=60ProGrace Medical CenterComment on above:Result Comment: eGFR not reported due to non-numeric value for Creatinine.Reported eGFR is based ontheCKD-EPI 2020 equation that doesnot use a race coefficient. Performed By: #### CMP ####[facility] ([address] [place] [address] VIRGlucose [Mass/Vol]194 mg/ePPupp54-83BmnZdwurfGrace Medical CenterComment on above:Performed By: #### CMP ####[facility] ([address] [place] [address] VIRPotassium [Moles/Vol]3.5 mmol/LNormal3.5-5.0ProGrace Medical CenterComment on above: Performed By: #### CMP ####[facility] ([address] [place] [address] VIRProtein [Mass/Vol]6.4 g/dLNormal6.0-8.0ProWvumedicine Harrison Community Hospitalca Jarvisburg HospitalComment on above:Performed By: #### CMP ####[facility] ([address] [address] VIRSodium [Moles/Vol]141 mmol/JNwabqx707-858RchQkaqns [facility] HospitalComment on above: Performed By: #### CMP ####[facility]ITALAri[facility] [address] [address] VIRUrea nitrogen [Mass/Vol]17 mg/dLNormal5-27 [facility] Medical CenterComment on above:Performed By: #### CMP ####[facility]PITALA [address] [address] VIR Comprehensive metabolic panelon 15-80-4315Asjuhbn [Mass/Vol]3.3 g/dL3.2 - 5.3 g/dLBarberton Citizens Hospital Health SystemALP [Catalytic activity/Vol]78 U/L39 - 130 U/L [facility] SystemALT No additional P-5'-P [Catalytic activity/Vol]12 U/L NINF - 31 U/LProMedica Health SystemAnion gap [Moles/Vol]12 mmol/L5 - 15 mmol/L [facility] Health SystemAST [Catalytic activity/Vol]16 U/LNINF - 41 U/LProMedica Health SystemBilirubin [Mass/Vol]0.8 mg/dL0.3 - 1.2 mg/dLGuernsey Memorial Hospital System Calcium [Mass/Vol]8.8 mg/dL8.5 - 10.5 mg/dLGuernsey Memorial Hospital SystemChloride [Moles/Vol]97 mmol/LLow98 - 109 mmol/LProMedica Health SystemCO2 [Moles/Vol]32 mmol/L22 - 32 mmol/LProMedica Health SystemCreatinine [Mass/Vol]0.7 mg/dL0.40 - 1.00 mg/dLLakeHealth Beachwood Medical CenterComment on above:METHOD TRACEABLE TO IDMS STANDARDEGFR Non-Race Dependent- [facility] CenterComment on above: eGFR not reported due to non-numeric value for Creatinine. Reported eGFR is based on the CKD-EPI 2020 equation that does not use a race coefficient. Glucose [Mass/Vol]194 mg/bISxlp89 - 99 mg/dLLakeHealth Beachwood Medical Center Interpretation and review of laboratory resultsAbnormOhioHealth Grant Medical Center Potassium [Moles/Vol]3.5 mmol/L3.5 - 5.0 mmol/LProMedAdena Health System SystemProtein [Mass/Vol]6.4 g/dL6.0 - 8.0 g/dLCone Health Women's Hospitalodium [Moles/Vol]141 mmol/L134 - 146 mmol/LProMedica Dunlap Memorial Hospital SystemUrea nitrogen [Mass/Vol]17 mg/dL5 - 27 mg/dLLakeHealth Beachwood Medical CenterLight Blue Topon 04-20-7023Lnduq TubeAuto ResultedLancaster General HospitalMAGNESIUMon 01-01-2025 Magnesium [Mass/Vol]2.1 mg/dLNormal1.8-2.6[facility] Medical CenterComment on above:Performed By: #### MG ####[facility] ([address] [address] VIRMagnesiumon 06-42-8249Eskzgdyufhvndx and review of laboratory resultsNormalGuernsey Memorial Hospital SystemMagnesium [Mass/Vol]2.1 mg/dL1.8 - 2.6 mg/dLLakeHealth Beachwood Medical CenterNo Panel Informationon 01-01-2025 [facility] Medical CenterPOTASSIUMon 24-46-1552Imyiiyrzn [Moles/Vol]4.3 mmol/L Normal3.5-5.0[facility] Medical CenterComment on above:Performed By: #### K ####[facility] ([address] [address] VIRPotassiumon 16-06-8171Szqihbgkxtzhgo and review of laboratory results NormalLakeHealth Beachwood Medical CenterPotassium [Moles/Vol]4.3 mmol/L3.5 - 5.0 mmol/L [facility] General HospitalBEDSIDE GLUCOSEon 12-31-2024 Glucose [Mass/Vol]189 mg/xGHxgu38-96BtcGvljoxFisher-Titus Medical CenterComment on above: Performed By: #### BEDG ####[facility] ([facility])[address], [id number] VIRGlucose [Mass/Vol]242 mg/jILzaf65-45UdpEuhrzgFisher-Titus Medical CenterComment on above:Performed By: #### BEDG ####[facility] ([facility])[address], [id number] VIRGlucose [Mass/Vol] 321 mg/hMVrxz24-75MxrUyhxscGrace Medical CenterComment on above:Performed By: #### BEDG ####[facility] ([facility])[address] [place], [place] [address]E.[place] [address] VIRBedside Glucose *Place/Obtain serum glucose if >500 per glucometer.on 62-90-2489Wcswjqa [Mass/Vol]198 mg/rNKocv86 - 99 mg/dLLakeHealth Beachwood Medical Center Interpretation and review of laboratory resultsAbnoSSM Health St. Mary's HospitalCBC WITH AUTO DIFFERENTIALon 87-18-2050SDRWKYVUU ABSOLUTE COUNT (10*3/UL) BY AUTOMATED COUNT0.0 10*3/uLNormal0.0-0.2PKettering Health – So[facility] on above:Result Comment: This is an appended report. These results have been appended to a previously preliminary verified report.Performed By: #### CBCA ####[facility] ([facility])[address] [facility], [id number] VIRBASOPHILS RELATIVE PERCENT BY AUTOMATED COUNT0.4 %Normal [facility] on above:Result Comment: This is an appended report. These results have been appended to a previously preliminary verified report.Performed By: #### CBCA ####[facility] ([facility])[address] [place], [place] [address]E.[place], [id number] VIRCELLAVISION ANISOCYTOSIS IN BLOOD BY LIGHT MICROSCOPY2+NormalSelect Medical Specialty [facility] - [facility] on above:Result Comment: This is an appended report. These results have been appended to a previously preliminary verified report.Performed By: #### CBCA ####[facility] ([address], [id number] VIRCELLAVISION DIFFERENTIAL TYPEAUTOMATED DIFFERENTIALNormalSelect [facility] on above:Result Comment: This is an appended report. These results have been appended to a previously preliminary verified report.Performed By: #### CBCA ####[facility] ([address], [id number] VIRCELLAVISION HYPOCHROMIA IN BLOOD BY LIGHT MICROSCOPY2+NormalFisher-Titus Medical CenterComselect specialty hospital-[place] on above:Result Comment: This is an appended report. These results have been appended to a previously preliminary verified report. Performed By: #### CBCA ####[address], [id number] VIRCELLAVISION RBC MORPHOLOGYReviewedNormalFisher-Titus Medical CenterComselect specialty hospital-[place] on above:Result Comment: This is an appended report. These results have been appended to a previously preliminary verified report. Performed By: #### CBCA ####[facility] ([address], [id number] VIREosinophils (Bld) [#/Vol]0.0 10*3/uLNormal0.0-0.4 [facility] on above:Result Comment: This is an appended report. These results have been appended to a previously preliminary verified report.Performed By: #### CBCA ####[facility] ([address], [id number] VIREOSINOPHILS RELATIVE PERCENT BY AUTOMATED COUNT0.2 %[facility] Hospital - YoungstownComselect specialty hospital-[place] on above:Result Comment: This is an appended report. These results have been appended to a previously prelimi nary verified report.Performed By: #### CBCA ####[facility] ([address], [id number] VIRErythrocyte distribution width (RBC) [Ratio]23.3 %High11.5-15Fisher-Titus Medical CenterComment on above: Performed By: #### CBCA ####[facility] ([facility])[address] [place] [address].[place], [id number] VIRHematocrit (Bld) [Volume fraction]33.6 %Unq19-55 [facility]-Titus Medical CenterComment on above:Performed By: #### CBCA ####[facility]PITALAri[facility] ([facility])[address] [place] [address].[place], [id number] VIRHemoglobin (Bld) [Mass/Vol]10.6 g/dLLow11.7-15.5PMartins Ferry HospitalComment on above: Performed By: #### CBCA ####[facility] ([address], [id number] VIRLYMPHOCYTES ABSOLUTE COUNT (10*3/UL) BY AUTOMATED COUNT0.5 10*3/uLLow1.0-3.5PMartins Ferry HospitalComment on above:Result Comment: This is an appended report. These results have been appended to a previously preliminary verified report.Performed By: #### CBCA ####[facility] ([address], [id number] VIR LYMPHOCYTES RELATIVE PERCENT BY AUTOMATED COUNT9.2 %NormalProGrace Medical CenterComselect specialty hospital-[place] on above:Result Comment: This is an appended report. These results have been appended to a previously preliminary verified report.Performed By: #### CBCA ####[facility] ([facility])[address] [place] [address], [id number] VIRMCH (RBC) [Entitic mass]25.9 mwWmk77-64PqyKwhlngFisher-Titus Medical CenterComment on above:Performed By: #### CBCA ####[facility] ([address], [id number] VIRMCHC (RBC) [Mass/Vol]31.4 g/uTHmz23-60CstChmrhdGrace Medical CenterComment on above:Performed By: #### CBCA ####[facility]ITALAri[facility] ([facility])[address] [place] [address], [id number] VIRMCV (RBC) [Entitic vol]83 jIAovzbw67-068XxrBgorcz [facility]remont HospitalComment on above:Performed By: #### CBCA ####[facility] ([facility])[address] [place] [address], [id number] VIRMONOCYTES ABSOLUTE COUNT (10*3/UL) BY AUTOMATED COUNT0.0 10*3/uLNormal0.0-0.9[facility]-Titus Medical CenterComselect specialty hospital-[place] on above:Result Comment: This is an appended report. These results have been appended to a previously preliminary verified report.Performed By: #### CBCA ####[facility]ITALAriana [facility] ([address], [id number] VIRMONOCYTES RELATIVE PERCENT BY AUTOMATED COUNT0.8 %NormalProGrace Medical CenterComment on above:Result Comment: This is an appended report. These results have been appended to a previously preliminary verified report.Performed By: #### CBCA ####[facility]ITALAri[facility] ([address], [id number] VIRNEUTROPHILS ABSOLUTE COUNT BY AUTOMATED COUNT4.5 10*3/uL Normal1.5-6.6Fisher-Titus Medical CenterComment on above:Result Comment: This is an appended report. These results have been appended to a previously preliminary verified report.Performed By: #### CBCA ####[facility] ([address], [id number] VIRNEUTROPHILS RELATIVE PERCENT BY AUTOMATED COUNT89.4 %NormalProGrace Medical CenterComment on above:Result Comment: This is an appended report. These results have been appended to a previously preliminary verified report.Performed By: #### CBCA ####[facility] ([facility])[address] [place] [address] AVE.[place], [id number] VIRPlatelet mean volume (Bld) [Entitic vol]7.3 fLNormal7-12PMartins Ferry HospitalComment on above:Performed By: #### CBCA ####[facility] ([address], [id number] VIRPlatelets (Bld) [#/Vol]282 10*3/uL Veipgo009-150UzrFsnamtGrace Medical CenterComment on above:Performed By: #### CBCA ####[facility] ([facility])[address] [place] [address].[place], [id number] VIRRBC COUNT4.08 X10E12/LNormal3.8-5.2PMartins Ferry HospitalComment on above:Performed By: #### CBCA ####[facility] ([address], [id number] VIRWBC (Bld) [#/Vol]5.0 10*3/uLNormal4-11 [facility]-Titus Medical CenterComment on above:Performed By: #### CBCA ####[facility] ([facility])[address] [place] [address].[place], [id number] VIRCBC auto differentialon 23-12-3350Ftkpmdypnpsq Ql (Bld)2+[facility] Medical CenterComment on above:This is an appended report. These results have been appended to a previously preliminary verified report.Basophils (Bld) [#/Vol]0 10*3/uL0.0 - 0.2 10*3/uLLakeHealth Beachwood Medical CenterComment on above:This is an appended report. These results have been appended to a previously preliminary verified report. Basophils/100 WBC (Bld)0.4 %[facility] CenterComment on above:This is an appended report. These results have been appended to a previously preliminary verified report.Differential cell count method Nom (Bld)AUTOMATED DIFFERENTIAL [facility] Medical CenterComment on above:This is an appended report. These results have been appended to a previously preliminary verified report. Eosinophils (Bld) [#/Vol]0 10*3/uL0.0 - 0.4 10*3/uLLakeHealth Beachwood Medical Center Comment on above:This is an appended report. These results have been appended to a previously preliminary verified report.Eosinophils/100 WBC (Bld)0.2 % [facility] Medical CenterComment on above:This is an appended report. These results have been appended to a previously preliminary verified report. Erythrocyte distribution width (RBC) [Ratio]23.3 %High11.5 - 15 %[facility] Medical CenterHematocrit (Bld) [Volume fraction]33.6 %Low35 - 47 %[facility] CenterHemoglobin (Bld) [Mass/Vol]10.6 g/dLLow11.7 - 15.5 g/dLLakeHealth Beachwood Medical CenterHypochromia Ql (Bld)2+[facility] CenterComment on above:This is an appended report. These results have been appended to a previously preliminary verified report.Interpretation and review of laboratory results AbnormalLakeHealth Beachwood Medical CenterLymphocytes (Bld) [#/Vol]0.5 10*3/uLLow1.0 - 3.5 10*3/uLLakeHealth Beachwood Medical CenterComment on above:This is an appended report. These results have been appended to a previously preliminary verified report. Lymphocytes/100 WBC (Bld)9.2 %[facility] CenterComment on above:This is an appended report. These results have been appended to a previously preliminary verified report.MCH (RBC) [Entitic mass]25.9 pgLow27 - 34 [facility] CenterMCHC (RBC) [Mass/Vol]31.4 g/dLLow32 - 36 g/dLLakeHealth Beachwood Medical CenterMCV (RBC) [Entitic vol]83 fL80 - 100 [facility] HospitalMonocytes (Bld) [#/Vol]0 10*3/uL0.0 - 0.9 10*3/uLLakeHealth Beachwood Medical CenterComment on above:This is an appended report. These results have been appended to a previously preliminary verified report.Monocytes/100 WBC (Bld)0.8 %[facility] Comment on above:This is an appended report. These results have been appended to a previously preliminary verified report.Neutrophils (Bld) [#/Vol]4.5 10*3/uL 1.5 - 6.6 10*3/[facility]ont HospitalComment on above:This is an appended report. These results have been appended to a previously preliminary verified re port.Neutrophils/100 WBC (Bld)89.4 %[facility] CenterComment on above:This is an appended report. These results have been appended to a previously preliminary verified report.Platelet mean volume (Bld) [Entitic vol]7.3 fL7 - 12 [facility] HospitalPlatelets (Bld) [#/Vol]282 10*3/[facility] HospitalRBC (Bld) [#/Vol]4.08 10*6/[facility] (Bld) [#/Vol] ReviewedLakeHealth Beachwood Medical CenterComment on above:This is an appended report. These results have been appended to a previously preliminary verified report.WBC LM Ql (Sput)5PDelaware County Memorial HospitalCOMPREHENSIVE METABOLIC PANELon 15-44-9368Blkrmmy [Mass/Vol]3.1 g/dLLow3.2-5.3PMartins Ferry HospitalComment on above:Performed By: #### CMP ####[facility] ([facility])[address] [place] [address] [place] [address] VIRALP [Catalytic activity/Vol]81 U/XIxfelb11-583HjcChzpceFisher-Titus Medical CenterComment on above: Performed By: #### CMP ####[facility] ([facility])[address] [place] [address] [place] [address] VIRALT [Catalytic activity/Vol]12 U/LNormal<=31 [facility] Medical CenterComment on above:Performed By: #### CMP ####[facility] ([address] [place] [address] VIRAnion gap [Moles/Vol]13 mmol/LNormal5-15Fisher-Titus Medical CenterComment on above: Performed By: #### CMP ####[facility] ([address] [place] [address] VIRAST [Catalytic activity/Vol]13 U/LNormal<=41 [facility] Medical CenterComment on above:Performed By: #### CMP ####[facility] ([address] [place] [address] VIRBilirubin [Mass/Vol]0.8 mg/dLNormal0.3-1.2PMartins Ferry HospitalComment on above: Performed By: #### CMP ####[facility] ([address] [place] [address] VIRCalcium [Mass/Vol]8.1 mg/dLLow8.5-10.5PMartins Ferry HospitalComment on above:Performed By: #### CMP ####[facility] ([address] [address] VIRChloride [Moles/Vol]96 mmol/FZuc78-937EobKspkqpGrace Medical CenterComment on above: Performed By: #### CMP ####[facility] ([address] [place] [address] VIRCO2 [Moles/Vol]29 mmol/DVnkjag01-06VooWgbnwbMartins Ferry HospitalComment on above:Performed By: #### CMP ####[facility] ([address] [place] [address] VIRCreatinine [Mass/Vol]0.65 mg/dLNormal0.40-1.00ProGrace Medical CenterComment on above: Result Comment: METHOD TRACEABLE TO IDMS STANDARDPerformed By: #### CMP ####[facility] ([address], [place] [address] VIREGFR (CKD-EPI) NON-RACE DEPENDENT>^90Normal>=60ProGrace Medical CenterComment on above:Result Comment: eGFR not reported due to non-numeric value for Creatinine.Reported eGFR is based ontheCKD-EPI 2020 equation that doesnot use a race coefficient.Performed By: #### CMP ####[facility] ([address] [place] [address] VIRGlucose [Mass/Vol]182 mg/hMHjrf25-49VirNreulxGrace Medical CenterComment on above:Performed By: #### CMP ####[facility] ([address] [place] [address] VIRPotassium [Moles/Vol]2.8 mmol/LLow3.5-5.0Fisher-Titus Medical CenterComment on above:Performed By: #### CMP ####[facility] ([address] [place] [address] VIRProtein [Mass/Vol]5.9 g/dLLow6.0-8.0ProGrace Medical CenterComment on above:Performed By: #### CMP ####[facility] ([address] [place] [address] VIRSodium [Moles/Vol]138 mmol/KNdfcjn473-220JweJsafex [facility]remont HospitalComment on above:Performed By: #### CMP ####[facility] ([address] [place] [address] VIRUrea nitrogen [Mass/Vol]13 mg/dLNormal5-27ProGrace Medical CenterComment on above:Performed By: #### CMP ####[facility] ([address] [place] [address] VIRComprehensive metabolic panelon 40-40-2421Savonpb [Mass/Vol]3.1 g/dLLow3.2 - 5.3 g/dLProSycamore Medical Center SystemALP [Catalytic activity/Vol]81 U/L39 - 130 U/LProMedTriHealth McCullough-Hyde Memorial HospitalALT No additional P-5'-P [Catalytic activity/Vol]12 U/LNINF - 31 U/LProMedica Health SystemAnion gap [Moles/Vol]13 mmol/L5 - 15 mmol/LProMedica Health SystemAST [Catalytic activity/Vol]13 U/LNINF - 41 U/LProMedica Health SystemBilirubin [Mass/Vol]0.8 mg/dL0.3 - 1.2 mg/dLProSycamore Medical Center SystemCalcium [Mass/Vol]8.1 mg/dLLow8.5 - 10.5 mg/dLProFlorala Memorial Hospital Health SystemChloride [Moles/Vol]96 mmol/LLow98 - 109 mmol/L [facility] CenterCO2 [Moles/Vol]29 mmol/L22 - 32 mmol/LPrOrthoColorado Hospital at St. [facility] Health SystemCreatinine [Mass/Vol]0.65 mg/dL0.40 - 1.00 mg/dLGuernsey Memorial Hospital System Comment on above:METHOD TRACEABLE TO IDMS STANDARDEGFR Non-Race Dependent- PINF [facility] CenterComment on above:eGFR not reported due to non-numeric value for Creatinine. Reported eGFR is based on the CKD-EPI 2020 equation that does not use a race coefficient. Glucose [Mass/Vol]182 mg/wKHldz50 - 99 mg/dLLakeHealth Beachwood Medical Center Interpretation and review of laboratory resultsAbnormalProSycamore Medical Center System Potassium [Moles/Vol]2.8 mmol/LLow3.5 - 5.0 mmol/LPrCitizens Memorial Healthcareica Health SystemProtein [Mass/Vol]5.9 g/dLLow6.0 - 8.0 g/dLGuernsey Memorial Hospital SystemSodium [Moles/Vol]138 mmol/L134 - 146 mmol/[facility] Parkwayica Health SystemUrea nitrogen [Mass/Vol]13 mg/dL5 - 27 mg/dLGuernsey Memorial Hospital SystemMAGNESIUMon 78-26-6958Bowbrfeco [Mass/Vol]2.0 mg/dLNormal1.8-2.6Fisher-Titus Medical CenterComment on above:Performed By: #### MG ####[facility]ITALEDICANAHE[facility] ([address] [place] [address] VIRMagnesiumon 67-26-8534Dpaperzzphevwr and review of laboratory results NormalProMedica Health SystemMagnesium [Mass/Vol]2 mg/dL1.8 - 2.6 mg/dLGuernsey Memorial Hospital SystemNo Panel Informationon 24-92-2181KnlCftvlf Health SystemPOTASSIUM on 71-31-7442Pojvymarh [Moles/Vol]3.3 mmol/LLow3.5-5.0[facility] Comment on above:Performed By: #### K ####[facility]OSPITALAriana [facility] ([facility])[address] [place] [address] VIRPotassium [Moles/Vol]3.1 mmol/LLow 3.5-5.0Fisher-Titus Medical CenterComment on above:Performed By: #### K ####[facility] ([facility])[address] [place] [address] VIRPotassiumon 23-47-9351Ftcxzdqxrqrisr and review of laboratory results AbnormalProFlorala Memorial Hospital Health SystemPotassium [Moles/Vol]3.3 mmol/LLow3.5 - 5.0 mmol/LProMedica Health SystemProFlorala Memorial Hospital Health SystemInterpretation and review of laboratory resultsAbnormalBarberton Citizens Hospital Health SystemPotassium [Moles/Vol]3.1 mmol/LLow3.5 - 5.0 mmol/LProMedica Health SystemBarberton Citizens Hospital Health SystemAPTTon 51-56-8581gMLO Coag (PPP) [Time]32 sPrFulton County Health Center SystemInterpretation and review of laboratory resultsNormalGuernsey Memorial Hospital SystemaPTT Coag (Bld) [Time] 32 nUerbah07-49FgzDpviphGrace Medical CenterComment on above:Performed By: #### PTT ####[facility] ([facility])[address] [place] [address] VIRB-TYPE NATRIURETIC PEPTIDEon 04-24-5090Hhnkvqeigxw peptide B (Bld) [Mass/Vol]248 pg/mLHigh<=100Fisher-Titus Medical CenterComment on above:Performed By: #### BNP ####[facility] ([facility])[address] [place] [address] VIRB-type natriuretic peptideon 54-59-6694Gwsyiyaywnukdg and review of laboratory resultsAbnormOhioHealth Grant Medical CenterNatriuretic peptide B (Bld) [Mass/Vol]248 pg/mLHighNINF - 100 pg/mLIndiana Regional Medical CenterBEDSIDE GLUCOSEon 87-51-6723Hqjfwje [Mass/Vol]198 mg/dL Kqqg85-26OzdPaatvjSelect Medical Specialty Hospital - [facility]hill on above:Performed By: #### BEDG ####[facility] ([facility])[address] [facility] [place], [id number] VIRCBC WITH AUTO DIFFERENTIALon 24-52-8653HDFYRLJEE ABSOLUTE COUNT (10*3/UL) BY AUTOMATED COUNT0.0 10*3/uLNormal0.0-0.2ProMedSt. John's Hospital Cam[facility] on above:Result Comment: This is an appended report. These results have been appended to a previously preliminary verified report.Performed By: #### CBCA ####[facility] ([facility])[address] [place] [address], [id number] VIRBASOPHILS RELATIVE PERCENT BY AUTOMATED COUNT0.2 %NormalSelect Medical Specialty Hospital - Cleveland-Fairhill on above:Result Comment: This is an appended report. These results have been appended to a previously preliminary verified report.Performed By: #### CBCA ####[facility] ([address], [id number] VIRCELLAVISION ANISOCYTOSIS IN BLOOD BY LIGHT MICROSCOPY2+ NormalSelect Medical Specialty Hospital - Cleveland-Fairhill on above:Result Comment: This is an appended report. These results have been appended to a previously preliminary verified report.Performed By: #### CBCA ####[facility] ([address], [id number] VIRCELLAVISION DIFFERENTIAL TYPE AUTOMATED DIFFERENTIALNormalSelect Medical Specialty Hospital [facility] on above:Result Comment: This is an appended report. These results have been appended to a previously preliminary verified report.Performed By: #### CBCA ####[facility] ([facility])[address] [place] [address], [id number] VIR CELLAVISION ELLIPTOCYTES IN BLOOD BY LIGHT MICROSCOPY1+[facility] on above:Result Comment: This is an appended report. These results have been appended to a previously preliminary verified report.Performed By: #### CBCA ####[facility] ([address], [id number] VIREosinophils (Bld) [#/Vol]0.2 10*3/uLNormal0.0-0.4 [facility] on above:Result Comment: This is an appended report. These results have been appended to a previously preliminary verified report.Performed By: #### CBCA ####[address], [id number] VIREOSINOPHILS RELATIVE PERCENT BY AUTOMATED COUNT2.3 %NormalFisher-Titus Medical CenterComselect specialty hospital-[place] on above:Result Comment: This is an appended report. These results have been appended to a previously prelimi nary verified report.Performed By: #### CBCA ####[facility] ([address], [id number] VIRErythrocyte distribution width (RBC) [Ratio]23.8 %High11.5-15Fisher-Titus Medical CenterComment on above: Performed By: #### CBCA ####[facility] ([address], [id number] VIRHematocrit (Bld) [Volume fraction]35.3 %Mwnzgh94-10 [facility]-Titus Medical CenterComselect specialty hospital-[place] on above:Performed By: #### CBCA ####[facility] ([address], [id number] VIRHemoglobin (Bld) [Mass/Vol]11.0 g/dLLow11.7-15.5PMartins Ferry HospitalComment on above: Performed By: #### CBCA ####[facility] ([address], [id number] VIRLYMPHOCYTES ABSOLUTE COUNT (10*3/UL) BY AUTOMATED COUNT0.4 10*3/uLLow1.0-3.5PMartins Ferry HospitalComment on above:Result Comment: This is an appended report. These results have been appended to a previously preliminary verified report.Performed By: #### CBCA ####[facility] ([address], [id number] VIR LYMPHOCYTES RELATIVE PERCENT BY AUTOMATED COUNT5.4 %NormalProGrace Medical CenterComment on above:Result Comment: This is an appended report. These results have been appended to a previously preliminary verified report.Performed By: #### CBCA ####[facility] ([address], [id number] VIRMCH (RBC) [Entitic mass]25.9 dpLsz95-70MbuXlrpvdGrace Medical CenterComment on above:Performed By: #### CBCA ####[facility] ([address], [id number] VIRMCHC (RBC) [Mass/Vol]31.2 g/dNLjj22-36CueGimyzqFisher-Titus Medical CenterComment on above:Performed By: #### CBCA ####[facility] ([address], [id number] VIRMCV (RBC) [Entitic vol]83 eFRfzhns68-710LflOzsncx [facility]remont HospitalComment on above:Performed By: #### CBCA ####[facility] ([address], [id number] VIRMONOCYTES ABSOLUTE COUNT (10*3/UL) BY AUTOMATED COUNT0.2 10*3/uLNormal0.0-0.9Fisher-Titus Medical CenterComselect specialty hospital-[place] on above:Result Comment: This is an appended report. These results have been appended to a previously preliminary verified report.Performed By: #### CBCA ####[facility] ([facility])[address] [place] [address], [id number] VIRMONOCYTES RELATIVE PERCENT BY AUTOMATED COUNT3.3 %NormalFisher-Titus Medical CenterComselect specialty hospital-[place] on above:Result Comment: This is an appended report. These results have been appended to a previously preliminary verified report.Performed By: #### CBCA ####[facility] ([address], [id number] VIRNEUTROPHILS ABSOLUTE COUNT BY AUTOMATED COUNT6.5 10*3/uL Normal1.5-6.6Fisher-Titus Medical CenterComselect specialty hospital-[place] on above:Result Comment: This is an appended report. These results have been appended to a previously preliminary verified report.Performed By: #### CBCA ####[facility] ([address], [id number] VIRNEUTROPHILS RELATIVE PERCENT BY AUTOMATED COUNT88.8 %NormalFisher-Titus Medical CenterComment on above:Result Comment: This is an appended report. These results have been appended to a previously preliminary verified report.Performed By: #### CBCA ####[facility]ITALAri[facility] ([address], [id number] VIRPlatelet mean volume (Bld) [Entitic vol]7.2 fLNormal7-12Pro[facility] Baldwin Park HospitalComment on above:Performed By: #### CBCA ####[facility] ([address], [id number] VIRPlatelets (Bld) [#/Vol]276 10*3/uL Ygzzbx862-246ErlAaasaoGrace Medical CenterComment on above:Performed By: #### CBCA ####[facility] ([facility])[address] [place] [address].[place], [id number] VIRRBC COUNT4.26 X10E12/LNormal3.8-5.2ProMedica Baldwin Park HospitalComment on above:Performed By: #### CBCA ####[facility] ([facility])[address] [place] [address], [id number] VIRWBC (Bld) [#/Vol]7.3 10*3/uLNormal4-11 [facility]-Titus Medical CenterComment on above:Performed By: #### CBCA ####[facility] ([facility])[address] [place] [address], [id number] VIRCBC auto differentialon 83-56-8111Kxjyqwzwclre Ql (Bld)2+[facility] CenterComment on above:This is an appended report. These results have been appended to a previously preliminary verified report.Basophils (Bld) [#/Vol]0 10*3/uL0.0 - 0.2 10*3/uLProSycamore Medical Center SystemComment on above:This is an appended report. These results have been appended to a previously preliminary verified report. Basophils/100 WBC (Bld)0.2 %[facility] CenterComment on above:This is an appended report. These results have been appended to a previously preliminary verified report.Differential cell count method Nom (Bld)AUTOMATED DIFFERENTIAL [facility] CenterComment on above:This is an appended report. These results have been appended to a previously preliminary verified report. Elliptocytes LM Ql (Bld)1+[facility] SystemComment on above:This is an appended report. These results have been appended to a previously preliminary verified report.Eosinophils (Bld) [#/Vol]0.2 10*3/uL0.0 - 0.4 10*3/uLProWvumedicine Harrison Community Hospitalca Dunlap Memorial Hospital SystemComment on above:This is an appended report. These results have been appended to a previously preliminary verified report.Eosinophils/100 WBC (Bld)2.3 %[facility] CenterComment on above:This is an appended report. These results have been appended to a previously preliminary verified report. Erythrocyte distribution width (RBC) [Ratio]23.8 %High11.5 - 15 %ProMedica Health SystemHematocrit (Bld) [Volume fraction]35.3 %35 - 47 %[facility] Medical CenterHemoglobin (Bld) [Mass/Vol]11 g/dLLow11.7 - 15.5 g/dLLakeHealth Beachwood Medical CenterInterpretation and review of laboratory resultsAbnormalLakeHealth Beachwood Medical CenterLymphocytes (Bld) [#/Vol]0.4 10*3/uLLow1.0 - 3.5 10*3/uLGuernsey Memorial Hospital SystemComment on above:This is an appended report. These results have been appended to a previously preliminary verified report.Lymphocytes/100 WBC (Bld) 5.4 %[facility] CenterComment on above:This is an appended report. These results have been appended to a previously preliminary verified report.MCH (RBC) [Entitic mass]25.9 pgLow27 - 34 [facility] CenterMCHC (RBC) [Mass/Vol] 31.2 g/dLLow32 - 36 g/dLLakeHealth Beachwood Medical CenterMCV (RBC) [Entitic vol]83 fL80 - 100 [facility] HospitalMonocytes (Bld) [#/Vol]0.2 10*3/uL0.0 - 0.9 10*3/uL [facility] CenterComment on above:This is an appended report. These results have been appended to a previously preliminary verified report. Monocytes/100 WBC (Bld)3.3 %[facility] CenterComment on above:This is an appended report. These results have been appended to a previously preliminary verified report.Neutrophils (Bld) [#/Vol]6.5 10*3/uL1.5 - 6.6 10*3/uLLakeHealth Beachwood Medical CenterComment on above:This is an appended report. These results have been appended to a previously preliminary verified report.Neutrophils/100 WBC (Bld)88.8 %[facility] CenterComment on above:This is an appended report. These results have been appended to a previously preliminary verified report. Platelet mean volume (Bld) [Entitic vol]7.2 fL7 - 12 [facility] Platelets (Bld) [#/Vol]276 10*3/uLLakeHealth Beachwood Medical CenterRBC (Bld) [#/Vol]4.26 10*6/uLLakeHealth Beachwood Medical CenterWBC LM Ql (Sput)7.3PCurahealth Heritage ValleyCOMPREHENSIVE METABOLIC PANELon 22-85-6587Uiamqyo [Mass/Vol]3.4 g/dLNormal3.2-5.3PMartins Ferry HospitalComment on above: Performed By: #### CMP ####[facility] ([facility])[address] [place], [place] [address] [place] [address] VIRALP [Catalytic activity/Vol]87 U/HIiduir36-354 [facility] Medical CenterComment on above:Performed By: #### CMP ####[facility] ([address] [place] [address] VIRALT [Catalytic activity/Vol]14 U/LNormal<=31PMartins Ferry HospitalComment on above:Performed By: #### CMP ####[facility] ([address] [place] [address] VIRAnion gap [Moles/Vol]12 mmol/LNormal5-15 [facility] Medical CenterComment on above:Performed By: #### CMP ####[facility] ([address] [place] [address] VIRAST [Catalytic activity/Vol]18 U/LNormal<=41Fisher-T[facility] Medical CenterComment on above:Performed By: #### CMP ####[facility] ([address] [place] [address] VIRBilirubin [Mass/Vol]0.9 mg/dLNormal0.3-1.2 [facility] Medical CenterComment on above:Performed By: #### CMP ####[facility] ([address] [place] [address] VIRCalcium [Mass/Vol]8.2 mg/dLLow8.5-10.5PMartins Ferry HospitalComment on above: Performed By: #### CMP ####[facility] ([address] [place] [address] VIRChloride [Moles/Vol]93 mmol/NGjs73-167MbjGbkvebGrace Medical CenterComment on above:Performed By: #### CMP ####[facility] ([address] [place] [address] VIRCO2 [Moles/Vol]29 mmol/VCgnpcn75-14UjfEqszee Baldwin Park HospitalComment on above:Performed By: #### CMP ####[facility] ([address] [place] [address] VIRCreatinine [Mass/Vol]0.87 mg/dLNormal0.40-1.00[facility]-T[facility] Medical CenterComment on above:Result Comment: METHOD TRACEABLE TO IDMS STANDARD Performed By: #### CMP ####[facility] ([address] [address] VIRGFR/1.73 sq M.predicted among non-blacks MDRD (S/P/Bld) [Vol rate/Area]74 mL/min/{1.73_m2}Normal>=60[facility] Comment on above:Result Comment: eGFR not reported due to non-numeric value for Creatinine.Reported eGFR is based ontheCKD-EPI 1 equation that doesnot use a race coefficient.Performed By: #### CMP ####[facility] ([address] [place] [address] VIRGlucose [Mass/Vol]216 mg/dLHigh 65-99ProGrace Medical CenterComment on above:Performed By: #### CMP ####[facility] ([address] [address] VIRPotassium [Moles/Vol]2.8 mmol/LLow3.5-5.0[facility] Comment on above:Performed By: #### CMP ####[facility])[address] [place] [address] VIRProtein [Mass/Vol]6.3 g/dLNormal 6.0-8.0[facility] Medical CenterComment on above:Performed By: #### CMP ####[facility] ([facility])[address], [place] [address] VIRSodium [Moles/Vol]134 mmol/GGllgfq344-105ZdbXxuuti [facility] Comment on above:Performed By: #### CMP ####[facility] ([facility])[address] [place] [address] [place] [address] VIRUrea nitrogen [Mass/Vol]17 mg/dL Normal5-27ProGrace Medical CenterComment on above:Performed By: #### CMP ####[address], [place] [address] VIRCT CTA CHESTon 59-53-5639DH CTA CHESTNormalProGrace Medical CenterCT Chest WO and CT angiogram Coronary arteries W contrast Atiya 65-01-5047KF CTA CHEST CLINICAL INFORMATION: elevated dimer, hypoxia [...] Prominent atherosclerotic calcifications in the aorta. Severe salt river coronary artery calcifications. There is prominence of [...] Prominent atherosclerotic calcifications in the aorta. Severe salt river coronary artery calcifications. There is prominence of [...] Artur Rosen MD on 12/30/2024 5:07 PM [employer]ra[employer] SystemsRadiology Study observation (narrative)[facility] HealthYobongo SystemCT Chest WO and CT angiogram Coronary arteries W contrast IVOrdered By: Artur Rosen on 63-68-2902XhiWjnlzzZimory Work Phone: Comprehensive metabolic panelon 61-19-2127Uvifzmq [Mass/Vol]3.4 g/dL3.2 - 5.3 g/dLGuernsey Memorial Hospital SystemALP [Catalytic activity/Vol]87 U/L39 - 130 U/[facility] Health SystemALT No additional P-5'-P [Catalytic activity/Vol]14 U/LNINF - 31 U/[facility] Health SystemAnion gap [Moles/Vol]12 mmol/L5 - 15 mmol/LPrOrthoColorado Hospital at St. [facility] Health SystemAST [Catalytic activity/Vol]18 U/LNINF - 41 U/[facility] SystemBilirubin [Mass/Vol]0.9 mg/dL0.3 - 1.2 mg/dLLakeHealth Beachwood Medical CenterCalcium [Mass/Vol]8.2 mg/dLLow8.5 - 10.5 mg/dLLakeHealth Beachwood Medical CenterChloride [Moles/Vol]93 mmol/LLow98 - 109 mmol/L [facility] CenterCO2 [Moles/Vol]29 mmol/L22 - 32 mmol/[facility] SystemCreatinine [Mass/Vol]0.87 mg/dL0.40 - 1.00 mg/dLLakeHealth Beachwood Medical Center Comment on above:METHOD TRACEABLE TO IDKS STANDARDEGFR Non-Race Kyebt[address] [place], [place] [address]Comment on above:eGFR not reported due to non-numeric value for Creatinine. Reported eGFR is based on the CKD-EPI 2020 equation that does not use a race coefficient. Glucose [Mass/Vol]216 mg/fQFcuk82 - 99 mg/dLLakeHealth Beachwood Medical Center Interpretation and review of laboratory resultsAbnormalLakeHealth Beachwood Medical Center Potassium [Moles/Vol]2.8 mmol/LLow3.5 - 5.0 mmol/[facility] SystemProtein [Mass/Vol]6.3 g/dL6.0 - 8.0 g/dLCone Health Women's Hospitalodium [Moles/Vol]134 mmol/L134 - 146 mmol/[facility] SystemUrea nitrogen [Mass/Vol]17 mg/dL5 - 27 mg/dLLakeHealth Beachwood Medical CenterD-DIMERon 12-30-2024D MSSXB526 ng/mLHigh1-255 [facility] Medical CenterComment on above:Result Comment: Results >255 ng/mL DDU: Results may be indicative of the presence of VTE. The use of the Wells score and further diagnostic tests should be considered. Elevated D-Dimer levels can be associated with DIC, neoplasm, , trauma and liver disease. Elevated levels of rheumatoidfactor may lead to an overestimation of the D-Dimer level.Performed By: #### DDMR ####[address], [place] VIRD-Dimeron 44-23-8681Ianzop D-dimer DDU (PPP) [Mass/Vol]514 ng/mLHigh1 - 255 ng/mLLakeHealth Beachwood Medical CenterComment on above: Results >255 ng/mL DDU: Results may be indicative of the presence of VTE. The use of the Wells score and further diagnostic tests should be considered. Elevated D-Dimer levels can be associated with DIC, neoplasm, , trauma and liver disease. Elevated levels of rheumatoid factor may leadto an overestimation of the D-Dimer level.MAGNESIUMon 04-44-3975Zvqccdvor [Mass/Vol] 1.9 mg/dLNormal1.8-2.6Fisher-[facility] Medical CenterComment on above:Performed By: #### MG ####[address] [address] VIRMagnesiumon 89-16-5675Skwkgandicyfku and review of laboratory resultsNormOhioHealth Grant Medical CenterMagnesium [Mass/Vol]1.9 mg/dL1.8 - 2.6 mg/dL [facility] CenterNo Panel Informationon 03-13-2170Tkjlg TubeAuto Resulted [facility]ca Health SystemWayne Hospitalca Health System Interpretation and review of laboratory resultsAbnormalMayo Clinic Health System [facility] SystemPOCT NURSING URINE MACROSCOPIC UAon 87-81-0806KCRNEBMEU NURNegativeNormalNegativeFisher-Titus Medical CenterComment on above:Performed By: #### NUM ####[address] [address] VIRBLOOD/HGB NURNegativeNormalNegativeProMedica Jarvisburg HospitalComment on above:Performed By: #### NUM ####[facility] ([address] [address] VIRGLUCOSE NURNegativeNormal NegativeProEast Liverpool City Hospital HospitalComment on above:Performed By: #### NUM ####[facility] ([address] [address] VIRKETONES NURNegativeNormalNegativeKettering Health Main Campus HospitalComment on above:Performed By: #### NUM ####[facility] ([address] [address] VIRLEUKOCYTE ESTERASE NURNegativeNormalNegative [facility] Medical CenterComment on above:Performed By: #### NUM ####[facility] ([address] [address] VIRNITRITE NURPositiveAbnormalNegativeFisher-Titus Medical CenterComment on above:Performed By: #### NUM ####[facility] ([address] [address] VIRPH NUR7.5Vwskcj7.0, 6.0, 6.5, 7.0, 7.5, 8.0, 8.5, 5.5 [facility] Medical CenterComment on above:Performed By: #### NUM ####[facility] ([address] [address] VIRPROTEIN NURNegativeNormalNegativeKettering Health Main Campus HospitalComment on above:Performed By: #### NUM ####[facility] ([address] [address] VIRSPECIFIC GRAVITY NUR1.432Rbpyof5.010, 1.015, 1.020, 1.025ProGrace Medical CenterComment on above:Performed By: #### NUM ####[facility] ([place])[address] [place] [address] VIRUROBILINOGEN NUR0.2 E.U./dLNormalProGrace Medical CenterComment on above:Performed By: #### NUM ####[facility] ([facility])[address] [place] [address] VIRPOCT Nursing Urine Macroscopic UAon 47-51-4695Ozswehvpt Ql (U)NegativeNegativeProMedica Health SystemGlucose [Mass/Vol]NegativeNegativeProMedica Health SystemHemoglobin Ql (U)Negative NegativeProMedica Health SystemInterpretation and review of laboratory results AbnormalProMedica Health SystemKetones (U) [Mass/Vol]NegativeNegativeProMedica Health SystemLeukocyte esterase Test strip Ql (U)NegativeNegativeProMedica Health SystemNitrite Ql (U)PositiveAbnormalNegativeProMedica Health SystempH (U) 7.0 [pH]5.0, 6.0, 6.5, 7.0, 7.5, 8.0, 8.5, 5.5ProMedica Health SystemProtein Ql (U)NegativeNegativeProMedica Health SystemSpecific gravity (U) [Rel density] 1.0101.010, 1.015, 1.020, 1.025ProMedica Health SystemUrobilinogen Qn (U) 0.606047948 {Carlos Alberto'U}/dLProMedica Health SystemProMedica Health SystemPROTIME AND INRon 41-09-3562JHJ3.0High0.9-1.2PMartins Ferry HospitalComment on above: Performed By: #### PINR ####[facility] HOSPITALAriana [facility] ([facility])[address] [place] [address] [id number] VIRPT Coag (PPP) [Time]22.2 sHigh9.8-13.2PMartins Ferry HospitalComment on above:Performed By: #### PINR ####[facility] ([facility])[address] [place] [address] [id number] VIRProtime & INRon 64-24-3290PIQ Coag (Platelet poor plasma or blood) [Relative time]2High0.9 - 1.2 [facility] Medical CenterPT Coag (PPP) [Time]22.2 [facility] Hospital - DanvilleTROP I, HIGH SENSITIVITY 1 HOURon 60-41-9616DFHLNWZM I, HIGH SENSITIVITY6 ng/LNormal <16[facility] Medical CenterComment on above:Performed By: #### TNIHS1 ####[facility] ([address] [address] VIRTROPONIN I, HIGH SENSITIVITY 0 HOURon 77-38-1268CZRIIISI I, HIGH SENSITIVITY6 ng/LNormal<16ProGrace Medical CenterComment on above:Performed By: #### TNIHS0 ####[facility] ([address] [place] [address] VIRTroponin I, High Sensitivity 0 Houron 12-30-2024 Interpretation and review of laboratory resultsBertrand Chaffee Hospital Troponin I.cardiac High sensitivity method [Mass/Vol]6 ng/LNINF - 16 ng/L [facility] SystemTroponin I, High Sensitivity 1 Houron 50-40-6393Hfrevzigywijmh and review of laboratory resultsNoRutherford Regional Health SystemTroponin I.cardiac High sensitivity method [Mass/Vol]6 ng/LNINF - 16 ng/LProMedSpecial Care HospitalXR CHEST 1 VWon 12-30-2024 XR CHEST 1 [facility] HospitalXR Chest Single viewon 12-30-2024 Single view chest [...] Richard Landaverde MD on 12/30/2024 3:32 PM [facility] Medical CenterRadiology Study observation (narrative)[facility] CenterXR Chest Single viewOrdered By: Richard Landaverde on 66-63-3420BuhWvlvgcLakeHealth Beachwood Medical Center Work Phone: BEDSIDE GLUCOSEon 93-11-9176Rwujzxn [Mass/Vol]126 mg/vRBbct90-00LbzPwfxduGrace Medical CenterComment on above:Performed By: #### BEDG ####[facility] ([facility])[address] [place] [address] VIRCBC WITH AUTO DIFFERENTIALon 07-10-5229SYORDXPGS ABSOLUTE COUNT (10*3/UL) BY AUTOMATED COUNT0.2 10*3/uLNormal0.0-0.2PTeche Regional Medical Centerica [facility] Comment on above:Performed By: #### CBCA ####[facility] ([facility])[address] [place], [place] [address] VIRBASOPHILS RELATIVE PERCENT BY AUTOMATED COUNT1.6 %NormalFisher-Titus Medical CenterComment on above:Performed By: #### CBCA ####[facility] ([facility])[address] [place], [place] [address] VIRCELLAVISION DIFFERENTIAL TYPEAUTOMATED DIFFERENTIAL NormalFisher-Titus Medical CenterComment on above:Performed By: #### CBCA ####[facility] ([address]FRESAINT [facility] SYSTEMT, [id number] VIREosinophils (Bld) [#/Vol]0.5 10*3/uLHigh0.0-0.4[facility] Comment on above:Performed By: #### CBCA ####[facility] ([address]FRESAINT JOHN'[facility] HEALTH SYSTEMT, [id number] VIREOSINOPHILS RELATIVE PERCENT BY AUTOMATED COUNT5.0 %NormalProGrace Medical CenterComment on above:Performed By: #### CBCA ####[facility] ([address], [id number] VIRErythrocyte distribution width (RBC) [Ratio]18.8 %High 11.5-15[facility] Medical CenterComment on above:Performed By: #### CBCA ####[facility] ([address], [id number] VIRHematocrit (Bld) [Volume fraction]26.8 %Bgy41-24JjwHcpirjFisher-Titus Medical Center Comment on above:Performed By: #### CBCA ####[facility] ([address]. [facility], [id number] VIRHemoglobin (Bld) [Mass/Vol]8.6 g/dL Low11.7-15.5PMartins Ferry HospitalComment on above:Performed By: #### CBCA ####[facility] ([address], [id number] VIRLYMPHOCYTES ABSOLUTE COUNT (10*3/UL) BY AUTOMATED COUNT1.4 10*3/uLNormal 1.0-3.5PMartins Ferry HospitalComment on above:Performed By: #### CBCA ####[facility] ([address]FRESA[facility] SYSTEMT, [id number] VIRLYMPHOCYTES RELATIVE PERCENT BY AUTOMATED COUNT14.4 %NormalProGrace Medical CenterComment on above:Performed By: #### CBCA ####[facility] ([facility])[address] [place], [place] [address]E.[place], [id number] VIRMCH (RBC) [Entitic mass] 25.1 qfBcq06-26QrmBggiccGrace Medical CenterComment on above:Performed By: #### CBCA ####[facility] ([facility])[address] [place], [place] [address]E.[place] [address] VIRMCHC (RBC) [Mass/Vol]32.1 g/yNZxzsky79-05UtfKrpngbFisher-Titus Medical Center Comment on above:Performed By: #### CBCA ####[facility] ([address], [id number] VIRMCV (RBC) [Entitic vol]78 fLLow 80-100ProGrace Medical CenterComment on above:Performed By: #### CBCA ####[facility] ([facility])[address] [place], [place] [address]E.[place], [id number] VIRMONOCYTES ABSOLUTE COUNT (10*3/UL) BY AUTOMATED COUNT1.0 10*3/uLHigh0.0-0.9 [facility] Medical CenterComment on above:Performed By: #### CBCA ####[facility] ([address], [id number] VIRMONOCYTES RELATIVE PERCENT BY AUTOMATED COUNT10.3 %NormalProGrace Medical CenterComment on above:Performed By: #### CBCA ####[facility] ([address], [id number] VIRNEUTROPHILS ABSOLUTE COUNT BY AUTOMATED COUNT6.8 10*3/uLHigh1.5-6.6ProGrace Medical CenterComment on above: Performed By: #### CBCA ####[facility] ([facility])[address] [place], [place] [address]E.[place], [id number] VIRNEUTROPHILS RELATIVE PERCENT BY AUTOMATED COUNT68.7 %NormalProGrace Medical CenterComment on above:Performed By: #### CBCA ####[facility] ([address], [id number] VIRPlatelet mean volume (Bld) [Entitic vol]7.4 fLNormal7-12PMartins Ferry HospitalComment on above:Performed By: #### CBCA ####[facility] ([facility])[address] [place] [address] AVE.[place], [place] VIRPlatelets (Bld) [#/Vol]452 10*3/cINvvw723-727OizQkrfghGrace Medical CenterComment on above:Performed By: #### CBCA ####[facility] ([address] [place] [address] VIRRBC COUNT3.43 X10E12/LLow3.8-5.2PMartins Ferry HospitalComment on above:Performed By: #### CBCA ####[facility] ([address], [place] VIRWBC (Bld) [#/Vol]9.9 10*3/uLNormal4-11 [facility] Medical CenterComment on above:Performed By: #### CBCA ####[facility] ([address] [id number] VIR COMPREHENSIVE METABOLIC PANELon 12-83-5470Vjpqrnq [Mass/Vol]2.9 g/dLLow3.2-5.3 [facility] Medical CenterComment on above:Performed By: #### CMP ####[facility] ([address] [place] [address] VIRALP [Catalytic activity/Vol]67 U/UZexfak14-519SrcBdxfnkGrace Medical CenterComment on above:Performed By: #### CMP ####[facility] ([place])[address] [place] [address] VIRALT [Catalytic activity/Vol]16 U/LNormal<=31 [facility] Medical CenterComment on above:Performed By: #### CMP ####[facility] ([place] [address] [place] [address] VIRAnion gap [Moles/Vol]11 mmol/LNormal5-15ProGrace Medical CenterComment on above: Performed By: #### CMP ####[facility] ([place] [address] [address] VIRAST [Catalytic activity/Vol]21 U/LNormal<=41 [facility] Medical CenterComment on above:Performed By: #### CMP ####[facility] ([place] [address] [address] VIRBilirubin [Mass/Vol]0.6 mg/dLNormal0.3-1.2ProMedGolden Valley Memorial Hospital HospitalComment on above: Performed By: #### CMP ####[facility] ([place] [address] [place] [address] VIRCalcium [Mass/Vol]8.4 mg/dLLow8.5-10.5ProMedSanger General HospitalComment on above:Performed By: #### CMP ####[facility] ([place] [address] [place] [address] VIRChloride [Moles/Vol]99 mmol/ZKciarh69-492RjhJiqcqoGrace Medical CenterComment on above: Performed By: #### CMP ####[facility] ([place] [address] [place] [address] VIRCO2 [Moles/Vol]30 mmol/XDyythq58-55EaaJgdvvoMartins Ferry HospitalComment on above:Performed By: #### CMP ####[facility] ([place] [address] [place] [address] VIRCreatinine [Mass/Vol]0.52 mg/dLNormal0.40-1.00ProGrace Medical CenterComment on above: Result Comment: METHOD TRACEABLE TO IDMS STANDARDPerformed By: #### CMP ####[facility] ([address] [address] VIREGFR (CKD-EPI) NON-RACE DEPENDENT>^90Normal>=60ProGrace Medical CenterComment on above:Result Comment: eGFR not reported due to non-numeric value for Creatinine.Reported eGFR is based ontheCKD-EPI 2020 equation that doesnot use a race coefficient.Performed By: #### CMP ####[facility] ([address] [address] VIRGlucose [Mass/Vol]98 mg/uAEwscig44-86MvzYmhpspGrace Medical CenterComment on above: Performed By: #### CMP ####[facility] ([address] [address] VIRPotassium [Moles/Vol]3.3 mmol/LLow3.5-5.0ProGrace Medical CenterComment on above:Performed By: #### CMP ####[address] [address] VIRProtein [Mass/Vol]5.7 g/dLLow6.0-8.0ProGrace Medical CenterComment on above:Performed By: #### CMP ####[facility] ([address] [address] VIRSodium [Moles/Vol]140 mmol/AIudksc172-594KsaNchpjn [place] HospitalComment on above:Performed By: #### CMP ####[facility] ([address] [address] VIRUrea nitrogen [Mass/Vol]7 mg/dLNormal5-27ProGrace Medical CenterComment on above:Performed By: #### CMP ####[facility] ([address] [address] VIRMAGNESIUMon 43-52-9607Dseczvczo [Mass/Vol]2.0 mg/dL Normal1.8-2.6ProGrace Medical CenterComment on above:Performed By: #### MG ####[facility] ([address] [address] VIRURINALYSISon 06-63-6616Ogjqaxdyu Ql (U)NegativeNormalNegativeFisher-Titus Medical CenterComment on above:Performed By: #### UA ####[facility] ([address] [address] VIRBLOOD/HGBNegative NormalNegativeFisher-Titus Medical CenterComment on above:Performed By: #### UA ####[facility] ([address] [address] VIRColor (U)YellowNormalYellowProGrace Medical CenterComment on above: Performed By: #### UA ####[facility] ([address] [address] VIRGlucose Ql (U)NegativeNormalNegative, 250 mg/dL [facility] Medical CenterComment on above:Performed By: #### UA ####[facility] ([address] [address] VIRKetones Ql (U)NegativeNormalNegativeFisher-Titus Medical CenterComment on above:Performed By: #### UA ####[facility] ([address] [address] VIRLeukocyte esterase Test strip Ql (U)NegativeNormal NegativeFisher-Titus Medical CenterComment on above:Performed By: #### UA ####[facility] ([address] [place] [address] VIRNitrite Ql (U)NegativeNormalNegativeFisher-Titus Medical CenterComment on above:Performed By: #### UA ####[facility] ([address] [address] VIRPH,URINE7.4Siuame5.0-8.5Pro[facility] Park HospitalComment on above:Performed By: #### UA ####[facility] ([address] [address] VIRProtein Ql (U)Negative NormalNegativeFisher-Titus Medical CenterComment on above:Performed By: #### UA ####[facility] ([address] [address] VIRSpecific gravity (U) [Rel density]1.469Aquwcg4.003-1.035ProGrace Medical CenterComment on above:Performed By: #### UA ####[facility] ([address] [address] VIRTURBIDITYClearNormalClear [facility] Medical CenterComment on above:Performed By: #### UA ####[facility] ([address] [address] VIR UROBILINOGEN0.2 eu/dLNormal0.2 eu/dL, 1.0 eu/dLFisher-Titus Medical CenterComment on above:Performed By: #### UA ####[facility] ([address] [address] VIRURINE CULTUREon 19-02-1442Ymkeabta identified Cx Nom (U)CULTURE RESULTS <10,000 ORGANISMS/mL NORMAL URO GENITAL FLORANoalFisher-Titus Medical Center Comment on above:Performed By: #### UC ####[facility] ([facility])[address], [place] [address] VIRBEDSIDE GLUCOSEon 12-16-2024 Glucose [Mass/Vol]152 mg/qSXljz07-03UtwInwzhxGrace Medical CenterComment on above: Performed By: #### BEDG ####[facility] ([address], [place] VIRGlucose [Mass/Vol]167 mg/rCSjse97-80LptOxmkywFisher-Titus Medical CenterComment on above:Performed By: #### BEDG ####[facility] ([address], [id number] VIRGlucose [Mass/Vol] 114 mg/eETwwf91-50CdeElhyreFisher-Titus Medical CenterComment on above:Performed By: #### BEDG ####[facility] ([address] [place] [address] VIRGlucose [Mass/Vol]134 mg/wHYfor08-88DrjLotwnzFisher-Titus Medical CenterComment on above:Performed By: #### BEDG ####[facility] ([address], [place] VIRCBC WITH AUTO DIFFERENTIALon 18-00-1206NUJRGHEXW ABSOLUTE COUNT (10*3/UL) BY AUTOMATED COUNT0.1 10*3/uLNormal 0.0-0.2ProMedica [facility] Park HospitalComment on above:Performed By: #### CBCA ####[facility] ([address], [id number] VIRBASOPHILS RELATIVE PERCENT BY AUTOMATED COUNT1.5 %NormalProGrace Medical CenterComment on above:Performed By: #### CBCA ####[facility] ([address], [id number] VIRCELLAVISION DIFFERENTIAL TYPEAUTOMATED DIFFERENTIALNormalProGrace Medical CenterComment on above: Performed By: #### CBCA ####[facility] ([address], [id number] VIREosinophils (Bld) [#/Vol]0.5 10*3/uLHigh0.0-0.4 [facility] Medical CenterComment on above:Performed By: #### CBCA ####[facility] ([address], [id number] VIR EOSINOPHILS RELATIVE PERCENT BY AUTOMATED COUNT5.9 %NormalFisher-Titus Medical CenterComment on above:Performed By: #### CBCA ####[facility] ([address], [id number] VIRErythrocyte distribution width (RBC) [Ratio]18.8 %High11.5-15Fisher-Titus Medical CenterComment on above: Performed By: #### CBCA ####[facility] ([address], [id number] VIRHematocrit (Bld) [Volume fraction]23.7 %Fzn26-83 [facility] Medical CenterComment on above:Performed By: #### CBCA ####[facility] ([address], [id number] VIRHemoglobin (Bld) [Mass/Vol]7.6 g/dLLow11.7-15.5PMartins Ferry HospitalComment on above: Performed By: #### CBCA ####[facility] ([address], [id number] VIRLYMPHOCYTES ABSOLUTE COUNT (10*3/UL) BY AUTOMATED COUNT1.1 10*3/uLNormal1.0-3.5PMartins Ferry HospitalComment on above: Performed By: #### CBCA ####[facility] ([address], [id number] VIRLYMPHOCYTES RELATIVE PERCENT BY AUTOMATED COUNT11.8 %NormalFisher-Titus Medical CenterComment on above:Performed By: #### CBCA ####[facility])[address], [place] VIRMCH (RBC) [Entitic mass]25.1 uyBtc44-98ZxxSdtxkhFisher-Titus Medical CenterComment on above:Performed By: #### CBCA ####[facility] ([address], [id number] VIRMCHC (RBC) [Mass/Vol]32.2 g/wMKsffbv15-98 [facility] Medical CenterComment on above:Performed By: #### CBCA ####[facility] ([address], [id number] VIRMCV (RBC) [Entitic vol]78 iVNva07-613ZsdZxccttGrace Medical CenterComment on above:Performed By: #### CBCA ####[facility] ([address], [id number] VIRMONOCYTES ABSOLUTE COUNT (10*3/UL) BY AUTOMATED COUNT0.9 10*3/uLNormal0.0-0.9Fisher-[facility]itus Medical CenterComment on above:Performed By: #### CBCA ####[facility] ([address], [id number] VIRMONOCYTES RELATIVE PERCENT BY AUTOMATED COUNT9.8 %Normal [facility]-Titus Medical CenterComment on above:Performed By: #### CBCA ####[facility] ([address], [id number] VIR NEUTROPHILS ABSOLUTE COUNT BY AUTOMATED COUNT6.4 10*3/uLNormal1.5-6.6Fisher-[facility]itus Medical CenterComment on above:Performed By: #### CBCA ####[facility] ([address], [id number] VIRNEUTROPHILS RELATIVE PERCENT BY AUTOMATED COUNT71.0 %NormalProGrace Medical CenterComment on above:Performed By: #### CBCA ####[facility] ([facility])[address], [id number] VIRPlatelet mean volume (Bld) [Entitic vol]7.2 fLNormal7-12PMartins Ferry HospitalComment on above:Performed By: #### CBCA ####[facility] ([place] [address], [id number] VIRPlatelets (Bld) [#/Vol]414 10*3/wAJonxnk648-323FjeVeozxg Fremont HospitalComment on above:Performed By: #### CBCA ####[facility] ([place] [address], [id number] VIRRBC COUNT3.03 X10E12/LLow3.8-5.2PMartins Ferry HospitalComment on above:Performed By: #### CBCA ####[facility] ([place] [address] [place] [address] VIRWBC (Bld) [#/Vol]9.0 10*3/uLNormal4-11ProGrace Medical CenterComment on above:Performed By: #### CBCA ####[facility] ([facility])[address] [place], [place] [address], [id number] VIRCOMPREHENSIVE METABOLIC PANELon 48-15-6679Pquixhn [Mass/Vol]2.8 g/dLLow3.2-5.3PMartins Ferry HospitalComment on above:Performed By: #### CMP ####[facility] ([facility] [place] [address] VIRALP [Catalytic activity/Vol]57 U/LNormal 39-130ProGrace Medical CenterComment on above:Performed By: #### CMP ####[facility] ([place] [address] [place] [address] VIRALT [Catalytic activity/Vol]17 U/LNormal<=31PMartins Ferry Hospital Comment on above:Performed By: #### CMP ####[facility] ([address] [place] [address] VIRAnion gap [Moles/Vol]5 mmol/LNormal 5-15Fisher-Titus Medical CenterComment on above:Performed By: #### CMP ####[facility] ([address], [place] [address] VIRAST [Catalytic activity/Vol]24 U/LNormal<=41[facility] Comment on above:Performed By: #### CMP ####[facility] ([address] [place] [address] VIRBilirubin [Mass/Vol]0.5 mg/dLNormal 0.3-1.2PMartins Ferry HospitalComment on above:Performed By: #### CMP ####[facility] ([address], [place] [address] VIRCalcium [Mass/Vol]7.7 mg/dLLow8.5-10.5PMartins Ferry HospitalComment on above:Performed By: #### CMP ####[facility] ([address] [place] [address] VIRChloride [Moles/Vol]105 mmol/XAmzpnc13-716 [facility]itus Medical CenterComment on above:Performed By: #### CMP ####[facility] ([address] [place] [address] VIRCO2 [Moles/Vol]27 mmol/HPtkszk56-57RdsXfoucvMartins Ferry HospitalComment on above: Performed By: #### CMP ####[facility] ([address] [place] [address] VIRCreatinine [Mass/Vol]0.66 mg/dLNormal0.40-1.00 [facility]itus Medical CenterComment on above:Result Comment: METHOD TRACEABLE TO IDMS STANDARDPerformed By: #### CMP ####[facility] ([address] [place] [address] VIREGFR (CKD-EPI) NON-RACE DEPENDENT >^90Normal>=60ProGrace Medical CenterComment on above:Result Comment: eGFR not reported due to non-numeric value for Creatinine.Reported eGFR is based on theCKD-EPI 2020 equation that doesnot use a race coefficient.Performed By: #### CMP ####[facility] ([address] [place] [address] VIRGlucose [Mass/Vol]97 mg/hJWkklym08-10CacLyoqadGrace Medical CenterComment on above:Performed By: #### CMP ####[facility] ([address] [place] [address] VIRPotassium [Moles/Vol]3.5 mmol/LNormal 3.5-5.0ProGrace Medical CenterComment on above:Performed By: #### CMP ####[facility] ([address], [place] [address] VIRProtein [Mass/Vol]5.3 g/dLLow6.0-8.0Fisher-Titus Medical CenterComment on above:Performed By: #### CMP ####[facility] ([address] [place] [address] VIRSodium [Moles/Vol]137 mmol/CWgjopx090-661 ProMLos Robles Hospital & Medical CenterComment on above:Performed By: #### CMP ####[facility] ([address] [place] [address] VIRUrea nitrogen [Mass/Vol]8 mg/dLNormal5-27ProGrace Medical CenterComment on above: Performed By: #### CMP ####[facility] ([address] [place] [address] VIRHEMOGLOBIN AND HEMATOCRIT, BLOODon 12-16-2024 Hematocrit (Bld) [Volume fraction]24.3 %Foy73-56UqmDkywxvFisher-Titus Medical Center Comment on above:Performed By: #### HH ####[facility] ([address] [place] [address] VIRHemoglobin (Bld) [Mass/Vol]7.9 g/dL Low11.7-15.5ProMedSanger General HospitalComment on above:Performed By: #### HH ####[facility] ([facility])[address] [place] [address].[place], [place] [address] VIRIONIZED CALCIUMon 34-01-6303IIIYJPW CALCIUM - ICAN4.7 mg/dLNormal4.5-5.3 [facility]itus Medical CenterComment on above:Performed By: #### ICA ####[facility] ([address] [place] [address] VIRMAGNESIUM on 30-82-0977Lixafdcay [Mass/Vol]2.1 mg/dLNormal1.8-2.6Fisher-Titus Medical CenterComment on above:Performed By: #### MG ####[facility] ([address] [place] [address] VIRPOTASSIUMon 12-16-2024 Potassium [Moles/Vol]3.8 mmol/LNormal3.5-5.0Fisher-Titus Medical CenterComment on above:Performed By: #### K ####[facility] ([address] [place] [address] VIRBEDSIDE GLUCOSEon 30-12-6819Abazyfv [Mass/Vol]185 mg/jCWjiz31-18EjfHnocvmFisher-Titus Medical CenterComment on above:Performed By: #### BEDG ####[facility] ([address], [place] VIRGlucose [Mass/Vol]127 mg/dOZirk06-72JxyNxacnqFisher-Titus Medical CenterComment on above:Performed By: #### BEDG ####[facility] ([address], [place] VIRGlucose [Mass/Vol]173 mg/dL Hbsi71-77BzoRcycik[address] [place], [place] [address]Comment on above:Performed By: #### BEDG ####[facility] ([address], [id number] VIRGlucose [Mass/Vol]129 mg/mLBvjr66-03YiuAkdfhh17 Mathews StreetComment on above:Performed By: #### BEDG ####[facility] ([address], [id number] VIRCBC WITH AUTO DIFFERENTIALon 12-15-2024 BASOPHILS ABSOLUTE COUNT (10*3/UL) BY AUTOMATED COUNT0.1 10*3/uLNormal0.0-0.2 [facility] Medical CenterComselect specialty hospital-[place] on above:Performed By: #### CBCA ####[facility] ([address], [id number] VIRBASOPHILS RELATIVE PERCENT BY AUTOMATED COUNT1.0 %[facility] Hospital - YoungstownComselect specialty hospital-[place] on above:Performed By: #### CBCA ####[facility] ([address], [id number] VIRCELLAVISION DIFFERENTIAL TYPE AUTOMATED DIFFERENTIALNormalFisher-Titus Medical CenterComselect specialty hospital-[place] on above:Performed By: #### CBCA ####[facility] ([address], [id number] VIREosinophils (Bld) [#/Vol]0.4 10*3/uLNormal0.0-0.4 [facility] Medical CenterComselect specialty hospital-[place] on above:Performed By: #### CBCA ####[facility] ([address], [place] VIR EOSINOPHILS RELATIVE PERCENT BY AUTOMATED COUNT4.6 %NormalFisher-Titus Medical CenterComment on above:Performed By: #### CBCA ####[facility] ([address], [id number] VIRErythrocyte distribution width (RBC) [Ratio]18.5 %High11.5-15ProGrace Medical CenterComment on above: Performed By: #### CBCA ####[facility] ([address], [id number] VIRHematocrit (Bld) [Volume fraction]25.0 %Wtd98-83 [facility]-Titus Medical CenterComment on above:Performed By: #### CBCA ####[facility] ([address], [id number] VIRHemoglobin (Bld) [Mass/Vol]7.8 g/dLLow11.7-15.5PMartins Ferry HospitalComment on above: Performed By: #### CBCA ####[facility] ([address], [id number] VIRLYMPHOCYTES ABSOLUTE COUNT (10*3/UL) BY AUTOMATED COUNT0.9 10*3/uLLow1.0-3.5PMartins Ferry HospitalComment on above:Performed By: #### CBCA ####[facility] ([address], [id number] VIRLYMPHOCYTES RELATIVE PERCENT BY AUTOMATED COUNT10.3 % NormalFisher-Titus Medical CenterComment on above:Performed By: #### CBCA ####[facility] ([address], [id number] VIRMCH (RBC) [Entitic mass]25.0 qrCup32-52AfnAkeibkGrace Medical CenterComment on above:Performed By: #### CBCA ####[facility] ([address], [id number] VIRMCHC (RBC) [Mass/Vol]31.3 g/eAHto51-40 [facility] Medical CenterComment on above:Performed By: #### CBCA ####[facility] ([address], [place] VIRMCV (RBC) [Entitic vol]80 wWXkasqa74-345ZkxStoxqa [facility]ont HospitalComment on above: Performed By: #### CBCA ####[facility] ([address], [id number] VIRMONOCYTES ABSOLUTE COUNT (10*3/UL) BY AUTOMATED COUNT1.0 10*3/uLHigh0.0-0.9Fisher-Titus Medical CenterComment on above:Performed By: #### CBCA ####[facility] ([address], [id number] VIRMONOCYTES RELATIVE PERCENT BY AUTOMATED COUNT11.6 % NormalFisher-Titus Medical CenterComment on above:Performed By: #### CBCA ####[facility] ([address], [place] VIRNEUTROPHILS ABSOLUTE COUNT BY AUTOMATED COUNT6.4 10*3/uLNormal1.5-6.6 [facility] Medical CenterComselect specialty hospital-[place] on above:Performed By: #### CBCA ####[facility] ([address], [id number] VIR NEUTROPHILS RELATIVE PERCENT BY AUTOMATED COUNT72.5 %NormalFisher-Titus Medical CenterComment on above:Performed By: #### CBCA ####[facility] ([address], [id number] VIRPlatelet mean volume (Bld) [Entitic vol]6.9 fLLow7-12ProMedica Baldwin Park HospitalComment on above:Performed By: #### CBCA ####[facility] ([address], [id number] VIRPlatelets (Bld) [#/Vol]398 10*3/iVXpdnlv682-149PycTqbbkr [facility] HospitalComment on above:Performed By: #### CBCA ####[facility] ([facility])[address] [place], [place] [address], [place] VIRRBC COUNT3.14 X10E12/LLow3.8-5.2PMartins Ferry HospitalComment on above:Performed By: #### CBCA ####[facility] ([facility])[address] [place], [place] [address] [place] [address] VIRWBC (Bld) [#/Vol]8.8 10*3/uLNormal4-11ProGrace Medical CenterComment on above:Performed By: #### CBCA ####[facility] ([address], [place] VIRCOMPREHENSIVE METABOLIC PANELon 96-87-6247Dnjaxnc [Mass/Vol]2.6 g/dLLow3.2-5.3PMartins Ferry HospitalComment on above:Performed By: #### CMP ####[facility] ([facility])[address] [place], [place] [address] [place] [address] VIRALP [Catalytic activity/Vol]53 U/LNormal 39-130ProGrace Medical CenterComment on above:Performed By: #### CMP ####[facility] ([facility])[address] [place], [place] [address], [place] [address] VIRALT [Catalytic activity/Vol]16 U/LNormal<=31PMartins Ferry Hospital Comment on above:Performed By: #### CMP ####[facility] ([facility])[address] [place], [place] [address] [place] [address] VIRAnion gap [Moles/Vol]3 mmol/LLow 5-15ProGrace Medical CenterComment on above:Performed By: #### CMP ####[facility] ([address], [place] [address] VIRAST [Catalytic activity/Vol]25 U/LNormal<=41[facility] Comment on above:Performed By: #### CMP ####[facility] ([address] [place] [address] VIRBilirubin [Mass/Vol]0.9 mg/dLNormal 0.3-1.2PMartins Ferry HospitalComment on above:Performed By: #### CMP ####[facility] ([address] [address] VIRCalcium [Mass/Vol]7.8 mg/dLLow8.5-10.5PMartins Ferry HospitalComment on above:Performed By: #### CMP ####[address] [address] VIRChloride [Moles/Vol]112 mmol/XWvyz03-552 [facility] Medical CenterComment on above:Performed By: #### CMP ####[facility] ([address] [address] VIRCO2 [Moles/Vol]23 mmol/FWsezez92-63FajGryawfMartins Ferry HospitalComment on above: Performed By: #### CMP ####[facility] ([address] [place] [address] VIRCreatinine [Mass/Vol]0.75 mg/dLNormal0.40-1.00 [facility]itus Medical CenterComment on above:Result Comment: METHOD TRACEABLE TO IDMS STANDARDPerformed By: #### CMP ####[facility] ([address] [address] VIRGFR/1.73 sq M.predicted among non- blacks MDRD (S/P/Bld) [Vol rate/Area]88 mL/min/{1.73_m2}Normal>=60ProGrace Medical CenterComment on above:Result Comment: Reported eGFR is based on theCKD-EPI 2020 equation that doesnot use a race coefficient.Performed By: #### CMP ####[facility] ([address] [place] [address] VIRGlucose [Mass/Vol]124 mg/eLJink35-31BrcRtbbtgGrace Medical CenterComment on above:Performed By: #### CMP ####[facility] ([address] [place] [address] VIRPotassium [Moles/Vol]4.5 mmol/LNormal 3.5-5.0ProGrace Medical CenterComment on above:Performed By: #### CMP ####[address], [place] [address] VIRProtein [Mass/Vol]5.0 g/dLLow6.0-8.0ProGrace Medical CenterComment on above:Performed By: #### CMP ####[facility] ([address] [place] [address] VIRSodium [Moles/Vol]138 mmol/UVvzqgh976-134 [facility] Medical CenterComment on above:Performed By: #### CMP ####[facility] ([address] [place] [address] VIRUrea nitrogen [Mass/Vol]11 mg/dLNormal5-27ProGrace Medical CenterComment on above: Performed By: #### CMP ####[facility] ([address] [place] [address] VIRHEMOGLOBIN AND HEMATOCRIT, BLOODon 12-15-2024 Hematocrit (Bld) [Volume fraction]25.0 %Fyf28-37KcuRnikcpFisher-Titus Medical Center Comment on above:Performed By: #### HH ####[facility] ([address] [place] [address] VIRHemoglobin (Bld) [Mass/Vol]7.9 g/dL Low11.7-15.5ProMedica Baldwin Park HospitalComment on above:Performed By: #### HH ####[facility] ([address] [address] VIRIONIZED CALCIUMon 68-13-5509UPNXQWC CALCIUM - ICAN4.8 mg/dLNormal4.5-5.3 [facility] Medical CenterComment on above:Performed By: #### ICA ####[facility] ([address] [address] VIRMAGNESIUM on 12-37-3481Jwjqjnfym [Mass/Vol]2.4 mg/dLNormal1.8-2.6Fisher-Titus Medical CenterComment on above:Performed By: #### MG ####[facility] ([address] [address] VIRMagnesium [Mass/Vol]1.9 mg/dLNormal1.8-2.6ProGrace Medical CenterComment on above:Performed By: #### MG ####[facility] ([address] [address] VIRBEDSIDE GLUCOSEon 55-77-7213Oeiksfo [Mass/Vol]146 mg/gFThsj04-32 [facility] Medical CenterComment on above:Performed By: #### BEDG ####[facility] ([address] VIRGlucose [Mass/Vol]153 mg/dPVcmz76-95EnpHxxcxsFisher-Titus Medical CenterComment on above:Performed By: #### BEDG ####[facility] ([address] VIRGlucose [Mass/Vol]146 mg/cFHavz77-55NtkBwlxxfGrace Medical CenterComment on above:Performed By: #### BEDG ####[facility] ([address], [id number] VIRCBC WITH AUTO DIFFERENTIAL on 66-19-8686ALBTKDFKU ABSOLUTE COUNT (10*3/UL) BY AUTOMATED COUNT0.1 10*3/uL Normal0.0-0.2ProMedica Baldwin Park HospitalComment on above:Performed By: #### CBCA ####[facility] ([address], [id number] VIRBASOPHILS RELATIVE PERCENT BY AUTOMATED COUNT0.9 %NormalFisher-Titus Medical CenterComment on above:Performed By: #### CBCA ####[address], [id number] VIRCELLAVISION DIFFERENTIAL TYPEAUTOMATED DIFFERENTIALNormalFisher-Titus Medical CenterComment on above: Performed By: #### CBCA ####[facility] ([address], [id number] VIREosinophils (Bld) [#/Vol]0.2 10*3/uLNormal0.0-0.4 [facility] Medical CenterComment on above:Performed By: #### CBCA ####[facility] ([address], [id number] VIR EOSINOPHILS RELATIVE PERCENT BY AUTOMATED COUNT3.2 %NormalFisher-Titus Medical CenterComment on above:Performed By: #### CBCA ####[facility] ([address], [id number] VIRErythrocyte distribution width (RBC) [Ratio]19.8 %High11.5-15Fisher-Titus Medical CenterComment on above: Performed By: #### CBCA ####[facility] ([address], [place] VIRHematocrit (Bld) [Volume fraction]23.1 %Ynq72-52 [facility]itus Medical CenterComment on above:Performed By: #### CBCA ####[facility] ([address], [id number] VIRHemoglobin (Bld) [Mass/Vol]7.4 g/dLLow11.7-15.5PMartins Ferry HospitalComment on above: Performed By: #### CBCA ####[facility] ([address], [id number] VIRLYMPHOCYTES ABSOLUTE COUNT (10*3/UL) BY AUTOMATED COUNT1.0 10*3/uLNormal1.0-3.5PMartins Ferry HospitalComselect specialty hospital-[place] on above: Performed By: #### CBCA ####[facility] ([address], [id number] VIRLYMPHOCYTES RELATIVE PERCENT BY AUTOMATED COUNT12.8 %NormalProGrace Medical CenterComment on above:Performed By: #### CBCA ####[facility] ([address], [id number] VIRMCH (RBC) [Entitic mass]24.8 rjVqw59-20YbcKyzyzfFisher-Titus Medical CenterComment on above:Performed By: #### CBCA ####[facility] ([address], [id number] VIRMCHC (RBC) [Mass/Vol]32.2 g/cFNyecxy84-30 [facility] Medical CenterComselect specialty hospital-[place] on above:Performed By: #### CBCA ####[facility] ([address], [id number] VIRMCV (RBC) [Entitic vol]77 mUHfi17-253NkkYgyikeFisher-Titus Medical CenterComment on above:Performed By: #### CBCA ####[facility] ([address] [id number] VIRMONOCYTES ABSOLUTE COUNT (10*3/UL) BY AUTOMATED COUNT1.0 10*3/uLHigh0.0-0.9Fisher-Titus Medical CenterComment on above:Performed By: #### CBCA ####[facility] ([facility])[address] [place] [address] [place] [address] VIRMONOCYTES RELATIVE PERCENT BY AUTOMATED COUNT12.8 %NormalFisher-Titus Medical CenterComment on above:Performed By: #### CBCA ####[facility] ([facility])[address] [place] [address] [address]VE.[place], [id number] VIRNEUTROPHILS ABSOLUTE COUNT BY AUTOMATED COUNT5.3 10*3/uLNormal1.5-6.6Fisher-Titus Medical CenterComment on above:Performed By: #### CBCA ####[facility] ([address], [id number] VIRNEUTROPHILS RELATIVE PERCENT BY AUTOMATED COUNT70.3 %NormalFisher-Titus Medical CenterComment on above:Performed By: #### CBCA ####[facility] ([address], [id number] VIRPlatelet mean volume (Bld) [Entitic vol]6.8 fLLow7-12PTeche Regional Medical Centerica Baldwin Park HospitalComment on above:Performed By: #### CBCA ####[facility] ([address], [id number] VIRPlatelets (Bld) [#/Vol]446 10*3/qGEdeejt679-201XalQznjtw [facility] Comment on above:Performed By: #### CBCA ####[facility] ([address], [id number] VIRRBC COUNT3.00 X10E12/LLow3.8-5.2 [facility]itus Medical CenterComment on above:Performed By: #### CBCA ####[facility] ([address], [id number] VIRWBC (Bld) [#/Vol]7.5 10*3/uLNormal4-11ProGrace Medical CenterComment on above: Performed By: #### CBCA ####[facility] ([address], [id number] VIRCOMPREHENSIVE METABOLIC PANELon 01-63-1548Hwsxheg [Mass/Vol]2.9 g/dLLow3.2-5.3PLongmont United Hospital HospitalComment on above:Performed By: #### CMP ####[facility] ([place] [address] [place] [address] VIRALP [Catalytic activity/Vol]58 U/BMrvuzt47-485FtxHreuttGrace Medical CenterComment on above:Performed By: #### CMP ####[facility] ([place] [address] [place] [address] VIRALT [Catalytic activity/Vol]12 U/LNormal<=31PMartins Ferry HospitalComment on above: Performed By: #### CMP ####[facility] ([address] [place] [address] VIRAnion gap [Moles/Vol]11 mmol/LNormal5-15ProGrace Medical CenterComment on above:Performed By: #### CMP ####[facility] ([place] [address] [place] [address] VIRAST [Catalytic activity/Vol]18 U/LNormal<=41ProGrace Medical CenterComment on above: Performed By: #### CMP ####[facility] ([place] [address] [place] [address] VIRBilirubin [Mass/Vol]0.9 mg/dLNormal0.3-1.2 [facility]itus Medical CenterComment on above:Performed By: #### CMP ####[facility] ([place] [address] [place] [address] VIRCalcium [Mass/Vol]8.2 mg/dLLow8.5-10.5PMartins Ferry HospitalComment on above: Performed By: #### CMP ####[facility] ([facility])[address] [place], [place] [address]E.[place] [address] VIRChloride [Moles/Vol]101 mmol/KIuoecz41-443 ProMLos Robles Hospital & Medical CenterComment on above:Performed By: #### CMP ####[facility] ([address] [place] [address] VIRCO2 [Moles/Vol]24 mmol/WExfpuh24-43EwjImiieoMartins Ferry HospitalComment on above: Performed By: #### CMP ####[facility] ([address] [place] [address] VIRCreatinine [Mass/Vol]0.94 mg/dLNormal0.40-1.00 [facility] Medical CenterComment on above:Result Comment: METHOD TRACEABLE TO IDMS STANDARDPerformed By: #### CMP ####[facility] ([address] [address] VIRGFR/1.73 sq M.predicted among non- blacks MDRD (S/P/Bld) [Vol rate/Area]67 mL/min/{1.73_m2}Normal>=60ProGrace Medical CenterComment on above:Result Comment: eGFR not reported due to non- numeric value for Creatinine.Reported eGFR is based ontheCKD-EPI 2021 equation that doesnot use a race coefficient.Performed By: #### CMP ####[facility] ([address] [place] [address] VIRGlucose [Mass/Vol]126 mg/rSEesr91-56EgtIridncGrace Medical CenterComment on above:Performed By: #### CMP ####[facility] ([address] [place] [address] VIRPotassium [Moles/Vol]4.5 mmol/LNormal3.5-5.0ProGrace Medical CenterComment on above:Performed By: #### CMP ####[facility] ([address] [place] [address] VIRProtein [Mass/Vol]5.8 g/dLLow6.0-8.0ProGrace Medical CenterComment on above:Performed By: #### CMP ####[facility] ([address] [place] [address] VIRSodium [Moles/Vol]136 mmol/GRkpjaq926-561ZdjBrlgbb [facility]remont HospitalComment on above:Performed By: #### CMP ####[facility] ([address] [place] [address] VIRUrea nitrogen [Mass/Vol]14 mg/dLNormal5-27ProGrace Medical CenterComment on above:Performed By: #### CMP ####[facility] ([address] [place] [address] VIRHEMOGLOBIN AND HEMATOCRIT, BLOODon [id number] (Bld) [Volume fraction]20.1 %Kgh90-16SyiVzyuvlFisher-Titus Medical CenterComment on above:Performed By: #### HH ####[facility] ([address] [place] [address] VIRHemoglobin (Bld) [Mass/Vol]6.3 g/dL Critically low11.7-15.5ProMedica Baldwin Park HospitalComment on above:Performed By: #### HH ####[facility] ([address] [place] [address] VIRHematocrit (Bld) [Volume fraction]21.3 %Lto54-42PkuYyibyb [facility]remont HospitalComment on above:Performed By: #### HH ####[facility] ([address] [place] [address] VIRHemoglobin (Bld) [Mass/Vol]6.8 g/dLCritically low11.7-15.5PMartins Ferry HospitalComment on above:Performed By: #### HH ####[facility] ([address] [place] [address] VIRMAGNESIUMon [id number] [Mass/Vol] 2.0 mg/dLNormal1.8-2.6ProGrace Medical CenterComment on above:Performed By: #### MG ####[facility] ([address] [address] VIRPOTASSIUMon [id number] [Moles/Vol]3.5 mmol/LNormal3.5-5.0 [facility] Medical CenterComment on above:Performed By: #### K ####[facility] ([address] [address] VIRTYPE AND SCREENon [id number]_FBROUGGlzllwHivZodvxo [facility] HospitalComment on above: Performed By: #### TSC ####[facility] ([address] [address] VIRRH_INTEPPositiveNormalProGrace Medical Center Comment on above:Performed By: #### TSC ####[facility] ([address] [address] VIRBEDSIDE GLUCOSEon 28-70-5403Luynixy [Mass/Vol]118 mg/mJMrdu06-70NgmLxznyzGrace Medical CenterComment on above: Performed By: #### BEDG ####[address] VIRCBC WITH AUTO DIFFERENTIALon 74-38-6439OREGIWAOT ABSOLUTE COUNT (10*3/UL) BY AUTOMATED COUNT0.1 10*3/uLNormal0.0-0.2PLongmont United Hospital HospitalComment on above:Performed By: #### CBCA ####[facility] ([address], [place] VIRBASOPHILS RELATIVE PERCENT BY AUTOMATED COUNT0.9 %NormalFisher-Titus Medical CenterComment on above:Performed By: #### CBCA ####[facility] ([address], [id number] VIRCELLAVISION DIFFERENTIAL TYPEAUTOMATED DIFFERENTIALNormalProGrace Medical CenterComment on above:Performed By: #### CBCA ####[facility] ([address] [place] [address] VIREosinophils (Bld) [#/Vol]0.1 10*3/uLNormal0.0-0.4Fisher-Titus Medical CenterComment on above:Performed By: #### CBCA ####[facility] ([address], [id number] VIREOSINOPHILS RELATIVE PERCENT BY AUTOMATED COUNT0.8 %NormalFisher-Titus Medical CenterComment on above: Performed By: #### CBCA ####[facility] ([address], [id number] VIRErythrocyte distribution width (RBC) [Ratio]19.9 % High11.5-15Fisher-Titus Medical CenterComment on above:Performed By: #### CBCA ####[facility] ([address], [id number] VIRHematocrit (Bld) [Volume fraction]24.3 %Cra48-89KxvZgjnmwGrace Medical Center Comment on above:Performed By: #### CBCA ####[facility] ([address], [id number] VIRHemoglobin (Bld) [Mass/Vol]8.0 g/dL Low11.7-15.5ProMedica Jarvisburg HospitalComment on above:Performed By: #### CBCA ####[facility] ([facility])[address] [place], [place] [address]E.[place], [id number] VIRLYMPHOCYTES ABSOLUTE COUNT (10*3/UL) BY AUTOMATED COUNT0.8 10*3/uLLow1.0-3.5 Fisher-Titus Medical CenterComment on above:Performed By: #### CBCA ####[facility] ([facility])[address] [place], [place] [address]E.[place], [id number] VIR LYMPHOCYTES RELATIVE PERCENT BY AUTOMATED COUNT9.0 %NormalProGrace Medical CenterComment on above:Performed By: #### CBCA ####[facility] ([facility])[address] [place], [place] [address]E.[place], [id number] VIRMCH (RBC) [Entitic mass] 25.3 reXdu86-02TpyKoapdqGrace Medical CenterComment on above:Performed By: #### CBCA ####[facility] ([facility])[address] [place], [place] [address]E.[place] [address] VIRMCHC (RBC) [Mass/Vol]32.9 g/mXHnvaty98-81FhjErhljhFisher-Titus Medical Center Comment on above:Performed By: #### CBCA ####[facility] ([facility])[address] [place], [place] [address]E.[place], [id number] VIRMCV (RBC) [Entitic vol]77 fLLow 80-100ProGrace Medical CenterComment on above:Performed By: #### CBCA ####[facility] ([facility])[address] [place], [place] [address]E.[place], [id number] VIRMONOCYTES ABSOLUTE COUNT (10*3/UL) BY AUTOMATED COUNT0.9 10*3/uLNormal0.0-0.9 [facility]-Titus Medical CenterComment on above:Performed By: #### CBCA ####[facility] ([facility])[address] [place] [address] AVE.[place], [id number] VIRMONOCYTES RELATIVE PERCENT BY AUTOMATED COUNT9.8 %NormalProGrace Medical CenterComment on above:Performed By: #### CBCA ####[facility] ([facility])[address] [place] [address] AVE.[place], [id number] VIRNEUTROPHILS ABSOLUTE COUNT BY AUTOMATED COUNT7.3 10*3/uLHigh1.5-6.6Fisher-Titus Medical CenterComment on above: Performed By: #### CBCA ####[facility] ([facility])[address] [place] [address] AVE.[place], [id number] VIRNEUTROPHILS RELATIVE PERCENT BY AUTOMATED COUNT79.5 %NormalFisher-Titus Medical CenterComment on above:Performed By: #### CBCA ####[facility] ([address], [id number] VIRPlatelet mean volume (Bld) [Entitic vol]7.0 fLNormal7-12PMartins Ferry HospitalComment on above:Performed By: #### CBCA ####[facility] ([address], [id number] VIRPlatelets (Bld) [#/Vol]476 10*3/vNGxbd698-301GzjVsjtqsGrace Medical CenterComment on above:Performed By: #### CBCA ####[facility] ([address] [place] [address] VIRRBC COUNT3.16 X10E12/LLow3.8-5.2PMartins Ferry HospitalComment on above:Performed By: #### CBCA ####[facility] ([address], [id number] VIRWBC (Bld) [#/Vol]9.2 10*3/uLNormal4-11 [facility]-Titus Medical CenterComment on above:Performed By: #### CBCA ####[facility] ([address], [place] VIR COMPREHENSIVE METABOLIC PANELon 35-94-8267Jydjifr [Mass/Vol]3.2 g/dLNormal 3.2-5.3PMartins Ferry HospitalComment on above:Performed By: #### CMP ####[facility] ([address], [place] [address] VIRALP [Catalytic activity/Vol]66 U/MIytucg58-033WhgYrnqosFisher-Titus Medical Center Comment on above:Performed By: #### CMP ####[facility] ([place] [address] [place] [address] VIRALT [Catalytic activity/Vol]15 U/L Normal<=31PMartins Ferry HospitalComment on above:Performed By: #### CMP ####[facility] ([address] [address] VIRAnion gap [Moles/Vol]15 mmol/LNormal5-15[facility] Comment on above:Performed By: #### CMP ####[facility] ([address] [place] [address] VIRAST [Catalytic activity/Vol]24 U/L Normal<=41ProGrace Medical CenterComment on above:Performed By: #### CMP ####[facility] ([place] [address] [address] VIRBilirubin [Mass/Vol]1.1 mg/dLNormal0.3-1.2PMartins Ferry Hospital Comment on above:Performed By: #### CMP ####[facility] ([place] [address] [place] [address] VIRCalcium [Mass/Vol]8.4 mg/dLLow 8.5-10.5PMartins Ferry HospitalComment on above:Performed By: #### CMP ####[facility] ([place] [address], [place] [address] VIRChloride [Moles/Vol]92 mmol/BDxv77-570IqvBdvcnfGrace Medical CenterComment on above:Performed By: #### CMP ####[facility] ([address] [place] [address] VIRCO2 [Moles/Vol]25 mmol/NWkfzrj51-01 ProMLos Robles Hospital & Medical CenterComment on above:Performed By: #### CMP ####[facility] ([address] [address] VIR Creatinine [Mass/Vol]0.97 mg/dLNormal0.40-1.00ProGrace Medical CenterComment on above:Result Comment: METHOD TRACEABLE TO IDMS STANDARDPerformed By: #### CMP ####[facility] ([address] [address] VIRGFR/1.73 sq M.predicted among non-blacks MDRD (S/P/Bld) [Vol rate/Area] 65 mL/min/{1.73_m2}Normal>=60ProGrace Medical CenterComment on above:Result Comment: Reported eGFR is based on theCKD-EPI 2020 equation that doesnot use a race coefficient.Performed By: #### CMP ####[facility] ([address] [place] [address] VIRGlucose [Mass/Vol]131 mg/dLHigh 65-99ProGrace Medical CenterComment on above:Performed By: #### CMP ####[facility] ([address] [address] VIRPotassium [Moles/Vol]2.5 mmol/LCritically low3.5-5.0ProGrace Medical CenterComment on above:Performed By: #### CMP ####[facility] ([address] [address] VIRProtein [Mass/Vol]6.3 g/dL Normal6.0-8.0Fisher-Titus Medical CenterComment on above:Performed By: #### CMP ####[facility] ([address], [place] [address] VIRSodium [Moles/Vol]132 mmol/MPmc997-797OpiHrsvjvGrace Medical CenterComment on above:Performed By: #### CMP ####[facility] ([address] [place] [address] VIRUrea nitrogen [Mass/Vol]18 mg/dLNormal5-27 ProMLos Robles Hospital & Medical CenterComment on above:Performed By: #### CMP ####[facility] ([address] [address] VIRCT ABDOMEN AND PELVIS W CONTon 11-35-7865DF ABDOMEN AND PELVIS W CONTNormal Fisher-Titus Medical CenterLIPASEon 93-96-2768Myrvtj [Catalytic activity/Vol]37 U/XBiyhmv44-75StfXistshGrace Medical CenterComment on above:Performed By: #### LIPA ####[facility] ([address] VIRMAGNESIUMon 61-71-2244Zfpvqlsrl [Mass/Vol]2.2 mg/dLNormal1.8-2.6Fisher-Titus Medical CenterComment on above:Performed By: #### MG ####[facility] ([address] [address] VIRPOTASSIUMon 67-38-6869Afjbmkdlr [Moles/Vol]3.0 mmol/LLow3.5-5.0[facility] Comment on above:Performed By: #### K ####[facility] ([address] [address] VIRTROP I, HIGH SENSITIVITY 1 HOURon 77-90-9854IKVHLBZN I, HIGH WLTVORJWLAQ12 ng/LNormal<16[facility] Comment on above:Performed By: #### TNIHS1 ####[facility] ([address] [address] VIRTROPONIN I, HIGH SENSITIVITY 0 HOURon 08-96-5947HZEPBPOW I, HIGH HUVUMQCEIQD51 ng/LNormal<16 [facility] Medical CenterComment on above:Performed By: #### TNIHS0 ####[facility] ([address] [address] VIRBEDSIDE GLUCOSEon 87-77-1414Llaonhv [Mass/Vol]123 mg/nZZvna82-35 [facility] Medical CenterComment on above:Performed By: #### BEDG ####[facility] ([address] [id number] VIRCBC WITH AUTO DIFFERENTIALon 80-70-6925XXJOQGCVJ ABSOLUTE COUNT (10*3/UL) BY AUTOMATED COUNT0.1 10*3/uLNormal0.0-0.2PMartins Ferry HospitalComment on above: Performed By: #### CBCA ####[facility] ([address] [id number] VIRBASOPHILS RELATIVE PERCENT BY AUTOMATED COUNT0.7 % NormalProGrace Medical CenterComment on above:Performed By: #### CBCA ####[facility] ([address] [id number] VIRCELLAVISION DIFFERENTIAL TYPEAUTOMATED DIFFERENTIALNormalProGrace Medical CenterComment on above:Performed By: #### CBCA ####[facility] ([address] [id number] VIREosinophils (Bld) [#/Vol] 0.2 10*3/uLNormal0.0-0.4Fisher-Titus Medical CenterComment on above:Performed By: #### CBCA ####[facility])[address], [id number] VIREOSINOPHILS RELATIVE PERCENT BY AUTOMATED COUNT2.3 % NormalFisher-Titus Medical CenterComment on above:Performed By: #### CBCA ####[facility] ([address], [id number] VIRErythrocyte distribution width (RBC) [Ratio]19.9 %High11.5-15ProGrace Medical CenterComment on above:Performed By: #### CBCA ####[facility] ([address], [id number] VIRHematocrit (Bld) [Volume fraction]24.3 %Kmv25-42OfzEoylrwGrace Medical CenterComment on above: Performed By: #### CBCA ####[facility] ([address], [id number] VIRHemoglobin (Bld) [Mass/Vol]7.8 g/dLLow11.7-15.5 [facility]-Titus Medical CenterComment on above:Performed By: #### CBCA ####[facility] ([address], [id number] VIR LYMPHOCYTES ABSOLUTE COUNT (10*3/UL) BY AUTOMATED COUNT0.9 10*3/uLLow1.0-3.5 [facility] Medical CenterComment on above:Performed By: #### CBCA ####[facility] ([address], [id number] VIR LYMPHOCYTES RELATIVE PERCENT BY AUTOMATED COUNT8.2 %NormalProGrace Medical CenterComment on above:Performed By: #### CBCA ####[facility] ([address], [id number] VIRMCH (RBC) [Entitic mass] 25.2 weRoi32-69HnxHwoupw Fremont HospitalComment on above:Performed By: #### CBCA ####[facility] ([facility])[address] [place], [place] [address]E.[place] [address] VIRMCHC (RBC) [Mass/Vol]32.0 g/vXIxrfgk28-70OcaXhowvnFisher-Titus Medical Center Comment on above:Performed By: #### CBCA ####[facility] ([address], [id number] VIRMCV (RBC) [Entitic vol]79 fLLow 80-100ProGrace Medical CenterComment on above:Performed By: #### CBCA ####[facility] ([address], [id number] VIRMONOCYTES ABSOLUTE COUNT (10*3/UL) BY AUTOMATED COUNT0.8 10*3/uLNormal0.0-0.9 [facility] Medical CenterComment on above:Performed By: #### CBCA ####[facility] ([address], [id number] VIRMONOCYTES RELATIVE PERCENT BY AUTOMATED COUNT7.2 %NormalFisher-Titus Medical CenterComment on above:Performed By: #### CBCA ####[facility] ([address], [id number] VIRNEUTROPHILS ABSOLUTE COUNT BY AUTOMATED COUNT8.8 10*3/uLHigh1.5-6.6Fisher-Titus Medical CenterComment on above: Performed By: #### CBCA ####[facility] ([address], [id number] VIRNEUTROPHILS RELATIVE PERCENT BY AUTOMATED COUNT81.6 %NormalFisher-Titus Medical CenterComment on above:Performed By: #### CBCA ####[facility] ([address], [id number] VIRPlatelet mean volume (Bld) [Entitic vol]7.1 fLNormal7-12ProMedica Baldwin Park HospitalComment on above:Performed By: #### CBCA ####[facility] ([facility] [address], [id number] VIRPlatelets (Bld) [#/Vol]329 10*3/qNEwmwmg458-748KakGgkzqd [facility] HospitalComment on above:Performed By: #### CBCA ####[facility] ([facility] [address], [id number] VIRRBC COUNT3.08 X10E12/LLow3.8-5.2PMartins Ferry HospitalComment on above:Performed By: #### CBCA ####[facility] ([facility])[address] [place], [place] [address]VE.[place], [id number] VIRWBC (Bld) [#/Vol]10.8 10*3/uLNormal4-11ProGrace Medical CenterComment on above:Performed By: #### CBCA ####[facility] ([facility])[address] [place], [place] [address] [place] [address] VIRCOMPREHENSIVE METABOLIC PANELon 29-31-0895Rclfvqh [Mass/Vol]3.0 g/dLLow 3.2-5.3PMartins Ferry HospitalComment on above:Performed By: #### CMP ####[facility] ([facility])[address] [place], [place] [address]VE.[place], [place] [address] VIRALP [Catalytic activity/Vol]68 U/VGafguq46-054BarWxcbsiGrace Medical Center Comment on above:Performed By: #### CMP ####[facility] ([facility])[address] [place] [address] [place] [address] VIRALT [Catalytic activity/Vol]15 U/L Normal<=31PMartins Ferry HospitalComment on above:Performed By: #### CMP ####[facility] ([facility] [address], [place] [address] VIRAnion gap [Moles/Vol]11 mmol/LNormal5-15ProFlorala [facility] Comment on above:Performed By: #### CMP ####[facility] ([address] [place] [address] VIRAST [Catalytic activity/Vol]17 U/L Normal<=41ProGrace Medical CenterComment on above:Performed By: #### CMP ####[facility] ([address], [place] [address] VIRBilirubin [Mass/Vol]0.9 mg/dLNormal0.3-1.2PMartins Ferry Hospital Comment on above:Performed By: #### CMP ####[facility] ([address] [place] [address] VIRCalcium [Mass/Vol]8.0 mg/dLLow 8.5-10.5PMartins Ferry HospitalComment on above:Performed By: #### CMP ####[facility] ([address], [place] [address] VIRChloride [Moles/Vol]97 mmol/PTtb45-666BuhLyeonkGrace Medical CenterComment on above:Performed By: #### CMP ####[facility] ([address] [place] [address] VIRCO2 [Moles/Vol]26 mmol/MPjipaa53-65 [facility] Medical CenterComment on above:Performed By: #### CMP ####[facility] ([address] [place] [address] VIR Creatinine [Mass/Vol]0.73 mg/dLNormal0.40-1.00ProGrace Medical CenterComment on above:Result Comment: METHOD TRACEABLE TO IDMS STANDARDPerformed By: #### CMP ####[facility] ([address], [place] [address] VIREGFR (CKD-EPI) NON-RACE DEPENDENT>^90Normal>=60ProGrace Medical CenterComment on above:Result Comment: eGFR not reported due to non-numeric value for Creatinine.Reported eGFR is based ontheCKD-EPI 2020 equation that doesnot use a race coefficient.Performed By: #### CMP ####[facility] ([address] [place] [address] VIRGlucose [Mass/Vol]118 mg/bENyxs04-86WspOtkqtdGrace Medical CenterComment on above:Performed By: #### CMP ####[facility] ([address] [place] [address] VIRPotassium [Moles/Vol]3.4 mmol/LLow3.5-5.0ProGrace Medical CenterComment on above:Performed By: #### CMP ####[address] [place] [address] VIRProtein [Mass/Vol]6.1 g/dLNormal6.0-8.0ProGrace Medical CenterComment on above: Performed By: #### CMP ####[address] [place] [address] VIRSodium [Moles/Vol]134 mmol/MFechuj607-190HbmUeobxh [facility]remont HospitalComment on above:Performed By: #### CMP ####[address] [place] [address] VIRUrea nitrogen [Mass/Vol]18 mg/dLNormal5-27ProGrace Medical CenterComment on above:Performed By: #### CMP ####[facility] ([address] [place] [address] VIRMAGNESIUMon 41-00-8336Jeoeodhvs [Mass/Vol]2.0 mg/dL Normal1.8-2.6ProGrace Medical CenterComment on above:Performed By: #### MG ####[facility] ([address], [place] [address] VIRBEDSIDE GLUCOSEon 06-80-4597Ikygqss [Mass/Vol]134 mg/gBOmxg36-20WwyQnkznxFisher-Titus Medical CenterComment on above:Performed By: #### BEDG ####[facility] ([address], [place] VIRGlucose [Mass/Vol] 145 mg/jMEogx91-23DvdRyohkgGrace Medical CenterComment on above:Performed By: #### BEDG ####[facility] ([address] [place] [address] VIRGlucose [Mass/Vol]116 mg/rJUyeh23-47PlpAnvdhaFisher-Titus Medical CenterComment on above:Performed By: #### BEDG ####[facility] ([address], [id number] VIRCBC WITH AUTO DIFFERENTIALon 27-49-8271DSZWQGTPE ABSOLUTE COUNT (10*3/UL) BY AUTOMATED COUNT0.1 10*3/uLNormal 0.0-0.2PMartins Ferry HospitalComment on above:Performed By: #### CBCA ####[facility] ([address], [id number] VIRBASOPHILS RELATIVE PERCENT BY AUTOMATED COUNT1.2 %NormalProGrace Medical CenterComment on above:Performed By: #### CBCA ####[facility] ([address], [id number] VIRCELLAVISION DIFFERENTIAL TYPEAUTOMATED DIFFERENTIALNormalFisher-Titus Medical CenterComment on above: Performed By: #### CBCA ####[facility] ([address] [id number] VIREosinophils (Bld) [#/Vol]0.2 10*3/uLNormal0.0-0.4 [facility]-Titus Medical CenterComment on above:Performed By: #### CBCA ####[facility] ([address], [id number] VIR EOSINOPHILS RELATIVE PERCENT BY AUTOMATED COUNT2.8 %NormalFisher-Titus Medical CenterComment on above:Performed By: #### CBCA ####[facility] ([address], [id number] VIRErythrocyte distribution width (RBC) [Ratio]19.8 %High11.5-15ProGrace Medical CenterComment on above: Performed By: #### CBCA ####[facility] ([address], [id number] VIRHematocrit (Bld) [Volume fraction]24.6 %Dvk64-63 Fisher-Titus Medical CenterComment on above:Performed By: #### CBCA ####[facility] ([address], [id number] VIRHemoglobin (Bld) [Mass/Vol]7.8 g/dLLow11.7-15.5PMartins Ferry HospitalComment on above: Performed By: #### CBCA ####[facility] ([address], [id number] VIRLYMPHOCYTES ABSOLUTE COUNT (10*3/UL) BY AUTOMATED COUNT1.2 10*3/uLNormal1.0-3.5PMartins Ferry HospitalComment on above: Performed By: #### CBCA ####[facility] ([address], [id number] VIRLYMPHOCYTES RELATIVE PERCENT BY AUTOMATED COUNT13.9 %NormalFisher-Titus Medical CenterComment on above:Performed By: #### CBCA ####[facility] ([address], [id number] VIRMCH (RBC) [Entitic mass]25.2 qjEba92-14VdtPxieux Jarvisburg HospitalComment on above:Performed By: #### CBCA ####[facility] ([address], [id number] VIRMCHC (RBC) [Mass/Vol]31.7 g/jYRua58-06 [facility] Medical CenterComment on above:Performed By: #### CBCA ####[facility] ([address], [id number] VIRMCV (RBC) [Entitic vol]79 aPCnz33-437PfzKcnmvhGrace Medical CenterComment on above:Performed By: #### CBCA ####[facility] ([address], [id number] VIRMONOCYTES ABSOLUTE COUNT (10*3/UL) BY AUTOMATED COUNT0.6 10*3/uLNormal0.0-0.9Fisher-Titus Medical CenterComment on above:Performed By: #### CBCA ####[facility] ([address], [id number] VIRMONOCYTES RELATIVE PERCENT BY AUTOMATED COUNT7.3 %Normal Fisher-Titus Medical CenterComment on above:Performed By: #### CBCA ####[facility] ([address], [id number] VIR NEUTROPHILS ABSOLUTE COUNT BY AUTOMATED COUNT6.2 10*3/uLNormal1.5-6.6Fisher-Titus Medical CenterComment on above:Performed By: #### CBCA ####[facility] ([address], [id number] VIRNEUTROPHILS RELATIVE PERCENT BY AUTOMATED COUNT74.8 %NormalFisher-Titus Medical CenterComment on above:Performed By: #### CBCA ####[facility] ([address], [id number] VIRPlatelet mean volume (Bld) [Entitic vol]7.8 fLNormal7-12PMartins Ferry HospitalComment on above:Performed By: #### CBCA ####[facility] ([address], [place] VIRPlatelets (Bld) [#/Vol]273 10*3/oLErvjzq355-507IjyPsfrvv Fremont HospitalComment on above:Performed By: #### CBCA ####[facility] ([facility])[address] [place], [place] [address], [place] VIRRBC COUNT3.10 X10E12/LLow3.8-5.2PMartins Ferry HospitalComment on above:Performed By: #### CBCA ####[facility] ([address] [place] [address] VIRWBC (Bld) [#/Vol]8.3 10*3/uLNormal4-11ProGrace Medical CenterComment on above:Performed By: #### CBCA ####[facility] ([address], [place] VIRCOMPREHENSIVE METABOLIC PANELon [id number] [Mass/Vol]3.0 g/dLLow3.2-5.3PMartins Ferry HospitalComment on above:Performed By: #### CMP ####[facility] ([address] [place] [address] VIRALP [Catalytic activity/Vol]68 U/LNormal 39-130ProGrace Medical CenterComment on above:Performed By: #### CMP ####[facility] ([address], [place] [address] VIRALT [Catalytic activity/Vol]12 U/LNormal<=31PMartins Ferry Hospital Comment on above:Performed By: #### CMP ####[facility] ([facility])[address] [place], [place] [address] [place] [address] VIRAnion gap [Moles/Vol]14 mmol/L Normal5-15ProGrace Medical CenterComment on above:Performed By: #### CMP ####[facility] ([facility] [address], [place] [address] VIRAST [Catalytic activity/Vol]14 U/LNormal<=41[facility] Comment on above:Performed By: #### CMP ####[facility] ([place] [address] [place] [address] VIRBilirubin [Mass/Vol]0.8 mg/dLNormal 0.3-1.2PMartins Ferry HospitalComment on above:Performed By: #### CMP ####[facility] ([address] [address] VIRCalcium [Mass/Vol]8.2 mg/dLLow8.5-10.5PMartins Ferry HospitalComment on above:Performed By: #### CMP ####[facility] ([address] [place] [address] VIRChloride [Moles/Vol]99 mmol/AOdiqxx57-172 [facility] Medical CenterComment on above:Performed By: #### CMP ####[facility] ([address] [place] [address] VIRCO2 [Moles/Vol]26 mmol/JLgwmxl07-86McaAqtfxeMartins Ferry HospitalComment on above: Performed By: #### CMP ####[facility] ([address], [place] [address] VIRCreatinine [Mass/Vol]0.81 mg/dLNormal0.40-1.00 Fisher-Titus Medical CenterComment on above:Result Comment: METHOD TRACEABLE TO IDMS STANDARDPerformed By: #### CMP ####[facility] ([place] [address] [place] [address] VIRGFR/1.73 sq M.predicted among non- blacks MDRD (S/P/Bld) [Vol rate/Area]81 mL/min/{1.73_m2}Normal>=60ProGrace Medical CenterComment on above:Result Comment: eGFR not reported due to non- numeric value for Creatinine.Reported eGFR is based ontheCKD-EPI 2020 equation that doesnot use a race coefficient.Performed By: #### CMP ####[facility] ([address] [place] [address] VIRGlucose [Mass/Vol]108 mg/mNXhch03-50UvkIyvzbhGrace Medical CenterComment on above:Performed By: #### CMP ####[facility] ([address] [place] [address] VIRPotassium [Moles/Vol]3.0 mmol/LLow3.5-5.0ProGrace Medical CenterComment on above:Performed By: #### CMP ####[facility] ([address] [place] [address] VIRProtein [Mass/Vol]6.2 g/dLNormal6.0-8.0ProGrace Medical CenterComment on above: Performed By: #### CMP ####[address] [place] [address] VIRSodium [Moles/Vol]139 mmol/GNxgmwq939-520XnmQgkjgj [facility]ont HospitalComment on above:Performed By: #### CMP ####[facility] ([address] [place] [address] VIRUrea nitrogen [Mass/Vol]20 mg/dLNormal5-27ProGrace Medical CenterComment on above:Performed By: #### CMP ####[facility] ([address] [place] [address] VIRMAGNESIUMon 30-59-4598Gcmuiwkaa [Mass/Vol]2.2 mg/dL Normal1.8-2.6ProGrace Medical CenterComment on above:Performed By: #### MG ####[facility] ([address], [place] [address] VIRPOTASSIUMon 09-69-6764Wocghmmgb [Moles/Vol]2.6 mmol/LCritically low 3.5-5.0ProGrace Medical CenterComment on above:Performed By: #### K ####[facility] ([address] [address] VIRBEDSIDE GLUCOSEon 65-69-8637Unwsgrk [Mass/Vol]119 mg/uTOzuj57-55BspJygipmGrace Medical CenterComment on above:Performed By: #### BEDG ####[facility] ([address] VIRGlucose [Mass/Vol] 91 mg/bYQjuogi27-94RbyGqedlfGrace Medical CenterComment on above:Performed By: #### BEDG ####[facility] ([address] VIRGlucose [Mass/Vol]113 mg/rELlou55-48KcdZvpvlpGrace Medical CenterComment on above:Performed By: #### BEDG ####[facility] ([address] VIRC-REACTIVE PROTEINon 5C REACTIVE PROTEIN7.8 mg/dLHigh<=0.7ProGrace Medical CenterComment on above: Performed By: #### CRP ####[facility] ([address] [address] VIRCBC WITH AUTO DIFFERENTIALon 46-13-9505GBRFIWLXE ABSOLUTE COUNT (10*3/UL) BY AUTOMATED COUNT0.1 10*3/uLNormal0.0-0.2ProMedSanger General HospitalComment on above:Performed By: #### CBCA ####[facility] ([address], [id number] VIRBASOPHILS RELATIVE PERCENT BY AUTOMATED COUNT0.7 %NormalFisher-Titus Medical CenterComment on above:Performed By: #### CBCA ####[facility] ([address], [id number] VIRCELLAVISION DIFFERENTIAL TYPEAUTOMATED DIFFERENTIALNormalProGrace Medical CenterComment on above:Performed By: #### CBCA ####[facility] ([address] [place] [address] VIREosinophils (Bld) [#/Vol]0.3 10*3/uLNormal0.0-0.4Fisher-Titus Medical CenterComment on above:Performed By: #### CBCA ####[facility] ([address], [id number] VIREOSINOPHILS RELATIVE PERCENT BY AUTOMATED COUNT3.4 %NormalFisher-Titus Medical CenterComment on above: Performed By: #### CBCA ####[facility] ([address], [id number] VIRErythrocyte distribution width (RBC) [Ratio]20.2 % High11.5-15Fisher-Titus Medical CenterComment on above:Performed By: #### CBCA ####[facility] ([address], [id number] VIRHematocrit (Bld) [Volume fraction]23.4 %Gor72-85AjlCjdhorGrace Medical Center Comment on above:Performed By: #### CBCA ####[facility] ([address], [id number] VIRHemoglobin (Bld) [Mass/Vol]7.6 g/dL Low11.7-15.5ProMedica Baldwin Park HospitalComment on above:Performed By: #### CBCA ####[facility] ([facility])[address] [place], [place] [address]T [address]VE.[place], [id number] VIRLYMPHOCYTES ABSOLUTE COUNT (10*3/UL) BY AUTOMATED COUNT1.4 10*3/uLNormal 1.0-3.5PMartins Ferry HospitalComment on above:Performed By: #### CBCA ####[facility] ([facility])[address] [place], [place] [address]VE.[place], [id number] VIRLYMPHOCYTES RELATIVE PERCENT BY AUTOMATED COUNT15.6 %NormalProGrace Medical CenterComment on above:Performed By: #### CBCA ####[facility] ([facility])[address] [place] [address] AVE.[place], [id number] VIRMCH (RBC) [Entitic mass] 25.7 rfNdb09-64AxwFqzjgdFisher-Titus Medical CenterComment on above:Performed By: #### CBCA ####[facility] ([facility])[address] [place] [address] [place] [address] VIRMCHC (RBC) [Mass/Vol]32.4 g/jJLmnjmr70-37LvlJoexjiFisher-Titus Medical Center Comment on above:Performed By: #### CBCA ####[facility] ([facility])[address] [place] [address] AVE.[place], [id number] VIRMCV (RBC) [Entitic vol]79 fLLow 80-100Fisher-Titus Medical CenterComment on above:Performed By: #### CBCA ####[facility] ([facility])[address] [place] [address] AVE.[place], [id number] VIRMONOCYTES ABSOLUTE COUNT (10*3/UL) BY AUTOMATED COUNT0.7 10*3/uLNormal0.0-0.9 [facility]itus Medical CenterComment on above:Performed By: #### CBCA ####[facility] ([facility])[address] [place], [place] [address].[place], [id number] VIRMONOCYTES RELATIVE PERCENT BY AUTOMATED COUNT8.4 %NormalProGrace Medical CenterComment on above:Performed By: #### CBCA ####[facility] ([facility])[address] [facility], [id number] VIRNEUTROPHILS ABSOLUTE COUNT BY AUTOMATED COUNT6.2 10*3/uLNormal1.5-6.6ProGrace Medical CenterComment on above:Performed By: #### CBCA ####[facility] ([facility])[address] [place], [place] [address]VE.[place], [id number] VIRNEUTROPHILS RELATIVE PERCENT BY AUTOMATED COUNT71.9 %NormalFisher-Titus Medical CenterComment on above:Performed By: #### CBCA ####[facility] ([facility] [place] [address] VIRPlatelet mean volume (Bld) [Entitic vol]7.4 fLNormal7-12PMartins Ferry HospitalComment on above:Performed By: #### CBCA ####[facility] ([facility])[address] [place], [place] [address]VE[address], [id number] VIRPlatelets (Bld) [#/Vol]219 10*3/oCRkzrod112-023CzvUonwoa [facility]ont HospitalComment on above: Performed By: #### CBCA ####[facility] ([facility])[address] [place], [place] [address].FREST. [facility], [id number] VIRRBC COUNT2.95 X10E12/LLow3.8-5.2PMartins Ferry HospitalComment on above:Performed By: #### CBCA ####[facility] ([address], [id number] VIRWBC (Bld) [#/Vol]8.7 10*3/uLNormal4-11ProEast Liverpool City Hospital HospitalComment on above:Performed By: #### CBCA ####[facility] ([facility] [address] [address] VIRCOMPREHENSIVE METABOLIC PANELon 12-84-2179Fwxukal [Mass/Vol]2.8 g/dLLow 3.2-5.3PMartins Ferry HospitalComment on above:Performed By: #### CMP ####[facility] ([facility], [id number], [place] [address] VIRALP [Catalytic activity/Vol]71 U/LBbkitb18-096CkzAycfbdFisher-Titus Medical Center Comment on above:Performed By: #### CMP ####[facility] ([place] [address] [place] [address] VIRALT [Catalytic activity/Vol]12 U/L Normal<=31PMartins Ferry HospitalComment on above:Performed By: #### CMP ####[facility] ([place] [address], [place] [address] VIRAnion gap [Moles/Vol]10 mmol/LNormal5-15[facility] Comment on above:Performed By: #### CMP ####[facility] ([place] [address] [place] [address] VIRAST [Catalytic activity/Vol]10 U/L Normal<=41ProGrace Medical CenterComment on above:Performed By: #### CMP ####[facility] ([place] [address], [place] [address] VIRBilirubin [Mass/Vol]0.7 mg/dLNormal0.3-1.2PMartins Ferry Hospital Comment on above:Performed By: #### CMP ####[facility] ([place] [address] [place] [address] VIRCalcium [Mass/Vol]8.3 mg/dLLow 8.5-10.5PMartins Ferry HospitalComment on above:Performed By: #### CMP ####[facility] ([place] [address], [place] [address] VIRChloride [Moles/Vol]102 mmol/WDnmxzt20-719UffDvoxxkFisher-Titus Medical Center Comment on above:Performed By: #### CMP ####[facility] ([address] [place] [address] VIRCO2 [Moles/Vol]28 mmol/FCjtars36-38 ProMLos Robles Hospital & Medical CenterComment on above:Performed By: #### CMP ####[facility] ([address] [place] [address] VIR Creatinine [Mass/Vol]0.80 mg/dLNormal0.40-1.00[facility]-Titus Medical CenterComment on above:Result Comment: METHOD TRACEABLE TO IDMS STANDARDPerformed By: #### CMP ####[facility] ([address] [address] VIRGFR/1.73 sq M.predicted among non-blacks MDRD (S/P/Bld) [Vol rate/Area] 82 mL/min/{1.73_m2}Normal>=60ProGrace Medical CenterComment on above:Result Comment: eGFR not reported due to non-numeric value for Creatinine.Reported eGFR is based ontheCKD-EPI 1 equation that doesnot use a race coefficient. Performed By: #### CMP ####[facility]ITAL[facility] ([address] [place] [address] VIRGlucose [Mass/Vol]109 mg/yUDwrm46-61LigEielqbGrace Medical CenterComment on above:Performed By: #### CMP ####[facility] ([address] [place] [address] VIRPotassium [Moles/Vol]3.2 mmol/LLow3.5-5.0ProGrace Medical CenterComment on above: Performed By: #### CMP ####[facility] ([address] [place] [address] VIRProtein [Mass/Vol]5.9 g/dLLow6.0-8.0ProGrace Medical CenterComment on above:Performed By: #### CMP ####[facility] ([address] [place] [address] VIRSodium [Moles/Vol]140 mmol/GMwpgbn407-593ZasFlfpkh [facility]ont HospitalComment on above: Performed By: #### CMP ####[facility] ([address] [place] [address] VIRUrea nitrogen [Mass/Vol]20 mg/dLNormal5-27 ProMLos Robles Hospital & Medical CenterComment on above:Performed By: #### CMP ####[facility] ([address] [place] [address] VIRMAGNESIUM on 90-26-4290Zlooeqmqw [Mass/Vol]2.2 mg/dLNormal1.8-2.6ProGrace Medical CenterComment on above:Performed By: #### MG ####[facility] ([address] [place] [address] VIRPOTASSIUMon 12-09-2024 Potassium [Moles/Vol]3.4 mmol/LLow3.5-5.0ProGrace Medical CenterComment on above:Performed By: #### K ####[facility] ([address] [place] [address] VIRBEDSIDE GLUCOSEon 23-40-9452Yozewfq [Mass/Vol]151 mg/aCYern02-44ZcbVhwfxsGrace Medical CenterComment on above:Performed By: #### BEDG ####[facility] ([address], [place] VIRGlucose [Mass/Vol]100 mg/aMWdxi14-79FjqInileiGrace Medical CenterComment on above:Performed By: #### BEDG ####[facility] ([address], [id number] VIRGlucose [Mass/Vol]151 mg/dL Jcgj73-16PeeNnsvwhGrace Medical CenterComment on above:Performed By: #### BEDG ####[facility] ([address], [id number] VIRC-REACTIVE PROTEINon 12-08-2024 REACTIVE PROTEIN8.5 mg/dLHigh<=0.7ProGrace Medical CenterComment on above:Performed By: #### CRP ####[facility] ([address] [place] [address] VIRCBC WITH AUTO DIFFERENTIALon 64-94-3559JFBQAWJPZ ABSOLUTE COUNT (10*3/UL) BY AUTOMATED COUNT 0.0 10*3/uLNormal0.0-0.2ProMedSanger General HospitalComment on above:Performed By: #### CBCA ####[facility] ([address], [id number] VIRBASOPHILS RELATIVE PERCENT BY AUTOMATED COUNT0.4 %Normal [facility]itus Medical CenterComment on above:Performed By: #### CBCA ####[facility] ([address], [id number] VIR CELLAVISION DIFFERENTIAL TYPEAUTOMATED DIFFERENTIALNormalProGrace Medical CenterComment on above:Performed By: #### CBCA ####[facility] ([address], [id number] VIREosinophils (Bld) [#/Vol] 0.2 10*3/uLNormal0.0-0.4ProGrace Medical CenterComment on above:Performed By: #### CBCA ####[facility] ([address], [id number] VIREOSINOPHILS RELATIVE PERCENT BY AUTOMATED COUNT2.2 % NormalProGrace Medical CenterComment on above:Performed By: #### CBCA ####[facility] ([address], [place] VIRErythrocyte distribution width (RBC) [Ratio]20.2 %High11.5-15Fisher-Titus Medical CenterComment on above:Performed By: #### CBCA ####[facility] ([address], [id number] VIRHematocrit (Bld) [Volume fraction]24.2 %Vas84-75LtaUhpmzaGrace Medical CenterComment on above: Performed By: #### CBCA ####[facility] ([address], [id number] VIRHemoglobin (Bld) [Mass/Vol]7.7 g/dLLow11.7-15.5 [facility] Medical CenterComment on above:Performed By: #### CBCA ####[facility] ([address], [id number] VIR LYMPHOCYTES ABSOLUTE COUNT (10*3/UL) BY AUTOMATED COUNT1.4 10*3/uLNormal1.0-3.5 [facility] Medical CenterComment on above:Performed By: #### CBCA ####[facility] ([address], [id number] VIR LYMPHOCYTES RELATIVE PERCENT BY AUTOMATED COUNT12.6 %NormalProGrace Medical CenterComment on above:Performed By: #### CBCA ####[facility] ([address], [id number] VIRMCH (RBC) [Entitic mass] 25.4 tkOpw61-48VyqZlwxatFisher-Titus Medical CenterComment on above:Performed By: #### CBCA ####[facility] ([address] [place] [address] VIRMCHC (RBC) [Mass/Vol]31.7 g/nAUqi71-76CisOecjodGrace Medical CenterComment on above:Performed By: #### CBCA ####[facility] ([facility])[address] [place] [address] AVE[address]. [facility], [id number] VIRMCV (RBC) [Entitic vol]80 fLNormal 80-100Fisher-Titus Medical CenterComment on above:Performed By: #### CBCA ####[facility] ([address], [id number] VIRMONOCYTES ABSOLUTE COUNT (10*3/UL) BY AUTOMATED COUNT1.0 10*3/uLHigh0.0-0.9 [facility] on above:Performed By: #### CBCA ####[facility] ([address], [place] VIRMONOCYTES RELATIVE PERCENT BY AUTOMATED COUNT8.8 %NormalFisher-Titus Medical CenterComselect specialty hospital-[place] on above:Performed By: #### CBCA ####[facility] ([address], [place] VIRNEUTROPHILS ABSOLUTE COUNT BY AUTOMATED COUNT8.3 10*3/uLHigh1.5-6.6[facility] on above: Performed By: #### CBCA ####[facility] ([address], [id number] VIRNEUTROPHILS RELATIVE PERCENT BY AUTOMATED COUNT76.0 %NormalFisher-Titus Medical CenterComselect specialty hospital-[place] on above:Performed By: #### CBCA ####[facility] ([address], [id number] VIRPlatelet mean volume (Bld) [Entitic vol]7.0 fLNormal7-12ProMedica Baldwin Park HospitalComment on above:Performed By: #### CBCA ####[facility] ([address]ES[facility] [facility], [id number] VIRPlatelets (Bld) [#/Vol]192 10*3/xADcjyan860-706MrqPijsyq [facility] HospitalComment on above:Performed By: #### CBCA ####[facility] ([facility])[address] [place], [place] [address]E.[place], [place] VIRRBC COUNT3.02 X10E12/LLow3.8-5.2PMartins Ferry HospitalComment on above:Performed By: #### CBCA ####[facility] ([facility])[address] [place], [place] [address], [place] VIRWBC (Bld) [#/Vol]10.9 10*3/uLNormal4-11ProGrace Medical CenterComment on above:Performed By: #### CBCA ####[facility] ([address] [place] [address] VIRCOMPREHENSIVE METABOLIC PANELon 08-30-2298Xypysmq [Mass/Vol]3.0 g/dLLow 3.2-5.3PMartins Ferry HospitalComment on above:Performed By: #### CMP ####[facility] ([address], [place] [address] VIRALP [Catalytic activity/Vol]73 U/NErylha42-987LhsOdmntnFisher-Titus Medical Center Comment on above:Performed By: #### CMP ####[facility] ([address] [place] [address] VIRALT [Catalytic activity/Vol]13 U/L Normal<=31PMartins Ferry HospitalComment on above:Performed By: #### CMP ####[facility] ([address], [place] [address] VIRAnion gap [Moles/Vol]9 mmol/LNormal5-15ProGrace Medical CenterComment on above:Performed By: #### CMP ####[facility] ([address] [place] [address] VIRAST [Catalytic activity/Vol]13 U/L Normal<=41ProGrace Medical CenterComment on above:Performed By: #### CMP ####[facility] ([facility])[address] [place] [address] VIRBilirubin [Mass/Vol]0.7 mg/dLNormal0.3-1.2PMartins Ferry Hospital Comment on above:Performed By: #### CMP ####[facility] ([address] [address] VIRCalcium [Mass/Vol]8.4 mg/dLLow 8.5-10.5PMartins Ferry HospitalComment on above:Performed By: #### CMP ####[facility] ([address] [address] VIRChloride [Moles/Vol]106 mmol/OBkmfdi04-231HyfCiuuzcFisher-Titus Medical Center Comment on above:Performed By: #### CMP ####[facility] ([address] [address] VIRCO2 [Moles/Vol]23 mmol/ZEwiymq91-51 [facility]-Titus Medical CenterComment on above:Performed By: #### CMP ####[facility] ([address] [address] VIR Creatinine [Mass/Vol]0.85 mg/dLNormal0.40-1.00ProGrace Medical CenterComment on above:Result Comment: METHOD TRACEABLE TO IDKS STANDARDPerformed By: #### CMP ####[facility] ([address] [address] VIRGFR/1.73 sq M.predicted among non-blacks MDRD (S/P/Bld) [Vol rate/Area] 76 mL/min/{1.73_m2}Normal>=60ProGrace Medical CenterComment on above:Result Comment: eGFR not reported due to non-numeric value for Creatinine.Reported eGFR is based ontheCKD-EPI 2020 equation that doesnot use a race coefficient. Performed By: #### CMP ####[facility] ([address] [place] [address] VIRGlucose [Mass/Vol]131 mg/rRCatl37-76EysBpfqohGrace Medical CenterComment on above:Performed By: #### CMP ####[facility] ([address] [place] [address] VIRPotassium [Moles/Vol]4.0 mmol/LNormal3.5-5.0ProGrace Medical CenterComment on above: Performed By: #### CMP ####[facility] ([address] [place] [address] VIRProtein [Mass/Vol]6.3 g/dLNormal6.0-8.0ProGrace Medical CenterComment on above:Performed By: #### CMP ####[facility] ([address] [place] [address] VIRSodium [Moles/Vol]138 mmol/LWlgeje994-875StcTsutin [facility]remont HospitalComment on above: Performed By: #### CMP ####[facility] ([address] [place] [address] VIRUrea nitrogen [Mass/Vol]19 mg/dLNormal5-27 ProMLos Robles Hospital & Medical CenterComment on above:Performed By: #### CMP ####[facility] ([address] [place] [address] VIRMAGNESIUM on 77-12-4596Cjjhvxclr [Mass/Vol]2.2 mg/dLNormal1.8-2.6ProGrace Medical CenterComment on above:Performed By: #### MG ####[facility] ([address] [place] [address] VIRVANCOMYCIN, PEAKon 26-31-9829GWGJTFJYLS PEAK40.3 ug/pOObzz35.0-40.0[facility] Comment on above:Order Comment: To be drawn 1 to 2 hours after the end of the 1700 dosePerformed By: #### VANCPK ####[facility] ([address] [place] [address] VIRVANCOMYCIN, TROUGHon 12-08-2024 VANCOMYCIN AGIEQV77.4 ug/mLNormal5.0-20.0ProGrace Medical CenterComment on above:Order Comment: To be drawn prior to the 1700 dosePerformed By: #### VANCTR ####[facility] ([address] [address] VIRBEDSIDE GLUCOSEon 80-35-9649Aqdrqaq [Mass/Vol]117 mg/pXEssf23-66 [facility] Medical CenterComment on above:Performed By: #### BEDG ####[facility] ([address] [id number] VIRGlucose [Mass/Vol]180 mg/uYQnpq36-92YezUlltzhGrace Medical CenterComment on above:Performed By: #### BEDG ####[facility] ([address] [address] VIRGlucose [Mass/Vol]139 mg/mFObqj17-09PpvHyyxecGrace Medical CenterComment on above:Performed By: #### BEDG ####[facility] ([address] VIRC-REACTIVE PROTEINon 12-07-2024 REACTIVE DOHBYER93.7 mg/dLHigh<=0.7Fisher-Titus Medical CenterComment on above:Performed By: #### CRP ####[address] [address] VIRCBC WITH AUTO DIFFERENTIALon [id number] ABSOLUTE COUNT (10*3/UL) BY AUTOMATED COUNT0.0 10*3/uLNormal 0.0-0.2ProMedica Baldwin Park HospitalComment on above:Performed By: #### CBCA ####[facility] ([address], [id number] VIRBASOPHILS RELATIVE PERCENT BY AUTOMATED COUNT0.5 %NormalFisher-Titus Medical CenterComment on above:Performed By: #### CBCA ####[facility] ([address], [id number] VIRCELLAVISION DIFFERENTIAL TYPEAUTOMATED DIFFERENTIALNormalFisher-Titus Medical CenterComment on above: Performed By: #### CBCA ####[facility] ([address], [id number] VIREosinophils (Bld) [#/Vol]0.0 10*3/uLNormal0.0-0.4 [facility]itus Medical CenterComment on above:Performed By: #### CBCA ####[facility] ([address], [id number] VIR EOSINOPHILS RELATIVE PERCENT BY AUTOMATED COUNT0.1 %NormalFisher-Titus Medical CenterComment on above:Performed By: #### CBCA ####[facility] ([address] [facility], [id number] VIRErythrocyte distribution width (RBC) [Ratio]20.1 %High11.5-15Fisher-Titus Medical CenterComment on above: Performed By: #### CBCA ####[facility] ([address] [facility], [id number] VIRHematocrit (Bld) [Volume fraction]21.7 %Wdf66-46 [facility]-Titus Medical CenterComment on above:Performed By: #### CBCA ####[facility] ([address]FRESAINT [facility]T, [id number] VIRHemoglobin (Bld) [Mass/Vol]7.1 g/dLLow11.7-15.5PMartins Ferry HospitalComment on above: Performed By: #### CBCA ####[facility] ([address], [id number] VIRLYMPHOCYTES ABSOLUTE COUNT (10*3/UL) BY AUTOMATED COUNT0.8 10*3/uLLow1.0-3.5PMartins Ferry HospitalComment on above:Performed By: #### CBCA ####[facility] ([address], [id number] VIRLYMPHOCYTES RELATIVE PERCENT BY AUTOMATED COUNT8.1 % NormalProGrace Medical CenterComment on above:Performed By: #### CBCA ####[facility] ([address], [id number] VIRMCH (RBC) [Entitic mass]25.5 bjCvh17-36TtfRvncuiFisher-Titus Medical CenterComment on above:Performed By: #### CBCA ####[facility] ([address], [id number] VIRMCHC (RBC) [Mass/Vol]33.0 g/iBLnnmjp98-95 [facility] Medical CenterComment on above:Performed By: #### CBCA ####[facility] ([address], [id number] VIRMCV (RBC) [Entitic vol]77 [id number] Medical CenterComment on above:Performed By: #### CBCA ####[facility] [facility] ([address], [id number] VIRMONOCYTES ABSOLUTE COUNT (10*3/UL) BY AUTOMATED COUNT0.9 10*3/uLNormal0.0-0.9Fisher-Titus Medical CenterComment on above:Performed By: #### CBCA ####[facility] ([facility])[address] [place], [place] [address]VE[address], [id number] VIRMONOCYTES RELATIVE PERCENT BY AUTOMATED COUNT9.1 %Normal Fisher-Titus Medical CenterComment on above:Performed By: #### CBCA ####[facility] ([facility])[address] [place], [place] [address], [id number] VIR NEUTROPHILS ABSOLUTE COUNT BY AUTOMATED COUNT7.7 10*3/uLHigh1.5-6.6ProGrace Medical CenterComment on above:Performed By: #### CBCA ####[facility] ([address], [id number] VIRNEUTROPHILS RELATIVE PERCENT BY AUTOMATED COUNT82.2 %NormalFisher-Titus Medical CenterComment on above:Performed By: #### CBCA ####[facility] ([address], [id number] VIRPlatelet mean volume (Bld) [Entitic vol]6.6 fLLow7-12PMartins Ferry HospitalComment on above:Performed By: #### CBCA ####[facility] ([address] [place] [address] VIRPlatelets (Bld) [#/Vol]166 10*3/qCVpcszl675-104WyaZlssqf [facility]remont HospitalComment on above:Performed By: #### CBCA ####[facility] ([address], [id number] VIRRBC COUNT2.80 X10E12/LLow 3.8-5.2PMartins Ferry HospitalComment on above:Performed By: #### CBCA ####[facility] ([address], [id number] VIRWBC (Bld) [#/Vol]9.4 10*3/uLNormal4-11ProGrace Medical CenterComment on above:Performed By: #### CBCA ####[facility] ([place] [address], [id number] VIRCOMPREHENSIVE METABOLIC PANELon 12-07-2024 Albumin [Mass/Vol]3.0 g/dLLow3.2-5.3PMartins Ferry HospitalComment on above: Performed By: #### CMP ####[facility] ([place] [address] [place] [address] VIRALP [Catalytic activity/Vol]73 U/YFponxt70-907 Fisher-Titus Medical CenterComment on above:Performed By: #### CMP ####[facility] ([address] [place] [address] VIRALT [Catalytic activity/Vol]14 U/LNormal<=31PMartins Ferry HospitalComment on above:Performed By: #### CMP ####[place] [address]F[place] [place] [address] VIRAnion gap [Moles/Vol]13 mmol/LNormal5-15 Fisher-Titus Medical CenterComment on above:Performed By: #### CMP ####[facility] ([address] [place] [address] VIRAST [Catalytic activity/Vol]14 U/LNormal<=41ProMed[facility] Baldwin Park HospitalComment on above:Performed By: #### CMP ####[facility] ([place] [address] [address] VIRBilirubin [Mass/Vol]0.9 mg/dLNormal0.3-1.2 Fisher-Titus Medical CenterComment on above:Performed By: #### CMP ####[facility] ([address] [place] [address] VIRCalcium [Mass/Vol]8.2 mg/dLLow8.5-10.5PLongmont United Hospital HospitalComment on above: Performed By: #### CMP ####[facility] ([address] [place] [address] VIRChloride [Moles/Vol]103 mmol/GFzuurs23-756 [facility]-Titus Medical CenterComment on above:Performed By: #### CMP ####[facility] ([address] [place] [address] VIRCO2 [Moles/Vol]23 mmol/YDkdujx32-95PffRfxhaa Baldwin Park HospitalComment on above: Performed By: #### CMP ####[facility] ([address] [place] [address] VIRCreatinine [Mass/Vol]0.71 mg/dLNormal0.40-1.00 Fisher-Titus Medical CenterComment on above:Result Comment: METHOD TRACEABLE TO IDMS STANDARDPerformed By: #### CMP ####[facility] ([address] [place] [address] VIREGFR (CKD-EPI) NON-RACE DEPENDENT >^90Normal>=60ProGrace Medical CenterComment on above:Result Comment: Reported eGFR is based on theCKD-EPI 2020 equation that doesnot use a race coefficient.Performed By: #### CMP ####[facility] ([address] [place] [address] VIRGlucose [Mass/Vol]123 mg/dLHigh 65-99ProGrace Medical CenterComment on above:Performed By: #### CMP ####[facility] ([address], [place] [address] VIRPotassium [Moles/Vol]2.6 mmol/LCritically low3.5-5.0Fisher-Titus Medical CenterComment on above:Performed By: #### CMP ####[facility] ([address] [place] [address] VIRProtein [Mass/Vol]6.1 g/dL Normal6.0-8.0Fisher-Titus Medical CenterComment on above:Performed By: #### CMP ####[facility] ([address], [place] [address] VIRSodium [Moles/Vol]139 mmol/VDieiui498-709QllJuvttoSt. Luke'S Baptist Hospital on above:Performed By: #### CMP ####[facility] ([address] [place] [address] VIRUrea nitrogen [Mass/Vol]14 mg/dL Normal5-27ProGrace Medical CenterComment on above:Performed By: #### CMP ####[facility] ([address] [address] VIRMAGNESIUMon 20-74-1479Kxmyzjkyw [Mass/Vol]2.1 mg/dLNormal1.8-2.6 ProMLos Robles Hospital & Medical CenterComment on above:Performed By: #### MG ####[facility] ([address] [address] VIRMR FOOT LT W WO CONTon 64-25-1352FM FOOT LT W WO CONTNormalProGrace Medical Center POTASSIUMon 06-92-1479Vrurfjfeb [Moles/Vol]3.6 mmol/LNormal3.5-5.0ProGrace Medical CenterComment on above:Performed By: #### K ####[facility] ([address] [place] [address] VIRPotassium [Moles/Vol]3.6 mmol/LNormal3.5-5.0ProGrace Medical CenterComment on above: Performed By: #### K ####[facility] ([address] [address] VIRBEDSIDE GLUCOSEon 13-15-7310Vuobiwq [Mass/Vol]169 mg/xWHfcz90-40UtkVkmwlaGrace Medical CenterComment on above:Performed By: #### BEDG ####[facility] ([facility])[address] [place] [address] [address]VE[address]. [place] [address] VIRGlucose [Mass/Vol]170 mg/kIZbig72-91ZtcXaybolGrace Medical CenterComment on above:Performed By: #### BEDG ####[facility] ([facility])[address] [place] [address] AVE.[facility], [id number] VIRGlucose [Mass/Vol]145 mg/kASrim66-60 ProMLos Robles Hospital & Medical CenterComment on above:Performed By: #### BEDG ####[facility] ([facility])[address] [place] [address] AVE.[place], [id number] VIRCBC WITH AUTO DIFFERENTIALon 43-21-4303DIFECFYMR ABSOLUTE COUNT (10*3/UL) BY AUTOMATED COUNT0.1 10*3/uLNormal0.0-0.2ProMedSanger General HospitalComment on above: Performed By: #### CBCA ####[facility] ([address], [id number] VIRBASOPHILS RELATIVE PERCENT BY AUTOMATED COUNT0.7 % NormalFisher-Titus Medical CenterComment on above:Performed By: #### CBCA ####[facility] ([facility])[address] [place] [address] AVE.[place], [id number] VIRCELLAVISION DIFFERENTIAL TYPEAUTOMATED DIFFERENTIALNormalProGrace Medical CenterComment on above:Performed By: #### CBCA ####[facility] ([address], [id number] VIREosinophils (Bld) [#/Vol] 0.0 10*3/uLNormal0.0-0.4Fisher-Titus Medical CenterComment on above:Performed By: #### CBCA ####[facility] ([facility])[address] [place] [address] AVE.[place], [id number] VIREOSINOPHILS RELATIVE PERCENT BY AUTOMATED COUNT0.0 % NormalFisher-Titus Medical CenterComment on above:Performed By: #### CBCA ####[facility] ([address], [id number] VIRErythrocyte distribution width (RBC) [Ratio]20.3 %High11.5-15Fisher-Titus Medical CenterComment on above:Performed By: #### CBCA ####[facility] ([address], [id number] VIRHematocrit (Bld) [Volume fraction]22.9 %Mmb94-63GuaPfpeviGrace Medical CenterComment on above: Performed By: #### CBCA ####[facility] ([address], [id number] VIRHemoglobin (Bld) [Mass/Vol]7.2 g/dLLow11.7-15.5 [facility]-Titus Medical CenterComment on above:Performed By: #### CBCA ####[facility] ([address], [id number] VIR LYMPHOCYTES ABSOLUTE COUNT (10*3/UL) BY AUTOMATED COUNT0.7 10*3/uLLow1.0-3.5 [facility] Medical CenterComselect specialty hospital-[place] on above:Performed By: #### CBCA ####[facility] ([address], [id number] VIR LYMPHOCYTES RELATIVE PERCENT BY AUTOMATED COUNT5.9 %NormalProGrace Medical CenterComment on above:Performed By: #### CBCA ####[facility] ([address], [id number] VIRMCH (RBC) [Entitic mass] 24.8 poDed07-96PxlGqyoshFisher-Titus Medical CenterComment on above:Performed By: #### CBCA ####[facility] ([address] [place] [address] VIRMCHC (RBC) [Mass/Vol]31.3 g/gWVyy70-77EccDtrusjGrace Medical CenterComment on above:Performed By: #### CBCA ####[facility] ([address], [id number] VIRMCV (RBC) [Entitic vol]79 fLLow 80-100ProGrace Medical CenterComment on above:Performed By: #### CBCA ####[facility] ([address], [id number] VIRMONOCYTES ABSOLUTE COUNT (10*3/UL) BY AUTOMATED COUNT0.9 10*3/uLNormal0.0-0.9 [facility]-Titus Medical CenterComment on above:Performed By: #### CBCA ####[facility] ([address], [id number] VIRMONOCYTES RELATIVE PERCENT BY AUTOMATED COUNT7.4 %NormalFisher-Titus Medical CenterComment on above:Performed By: #### CBCA ####[facility] ([address], [id number] VIRNEUTROPHILS ABSOLUTE COUNT BY AUTOMATED COUNT9.9 10*3/uLHigh1.5-6.6ProGrace Medical CenterComment on above: Performed By: #### CBCA ####[facility] ([address], [id number] VIRNEUTROPHILS RELATIVE PERCENT BY AUTOMATED COUNT86.0 %NormalFisher-Titus Medical CenterComment on above:Performed By: #### CBCA ####[facility] ([address], [id number] VIRPlatelet mean volume (Bld) [Entitic vol]6.5 fLLow7-12ProMedica Baldwin Park HospitalComment on above:Performed By: #### CBCA ####[facility] ([address], [id number] VIRPlatelets (Bld) [#/Vol]197 10*3/cURtjigd824-505DxuVwsnlj Fremont HospitalComment on above:Performed By: #### CBCA ####[facility] ([facility])[address] [place], [place] [address]VE[address], [place] VIRRBC COUNT2.89 X10E12/LLow3.8-5.2PMartins Ferry HospitalComment on above:Performed By: #### CBCA ####[facility] ([facility])[address] [place], [place] [address]T AVE.[facility] [id number] VIRWBC (Bld) [#/Vol]11.5 10*3/uLHigh4-11Fisher-Titus Medical CenterComment on above:Performed By: #### CBCA ####[facility] ([address] [place] [address] VIRCOMPREHENSIVE METABOLIC PANELon 32-64-6269Boteeis [Mass/Vol]2.9 g/dLLow 3.2-5.3PMartins Ferry HospitalComment on above:Performed By: #### CMP ####[facility] ([address], [place] [address] VIRALP [Catalytic activity/Vol]77 U/ODoljwa62-499IfuNhkaxaFisher-Titus Medical Center Comment on above:Performed By: #### CMP ####[facility] ([address] [place] [address] VIRALT [Catalytic activity/Vol]12 U/L Normal<=31PMartins Ferry HospitalComment on above:Performed By: #### CMP ####[facility] ([address], [place] [address] VIRAnion gap [Moles/Vol]12 mmol/LNormal5-15[facility] Comment on above:Performed By: #### CMP ####[facility] ([address] [place] [address] VIRAST [Catalytic activity/Vol]13 U/L Normal<=41ProGrace Medical CenterComment on above:Performed By: #### CMP ####[facility] ([address], [place] [address] VIRBilirubin [Mass/Vol]0.5 mg/dLNormal0.3-1.2PMartins Ferry Hospital Comment on above:Performed By: #### CMP ####[facility] ([address] [place] [address] VIRCalcium [Mass/Vol]8.4 mg/dLLow 8.5-10.5PMartins Ferry HospitalComment on above:Performed By: #### CMP ####[facility] ([address], [place] [address] VIRChloride [Moles/Vol]112 mmol/UAipl05-100UyvUvzclkFisher-Titus Medical Center Comment on above:Performed By: #### CMP ####[facility] ([address] [place] [address] VIRCO2 [Moles/Vol]16 mmol/NYxm50-34 [facility] Medical CenterComment on above:Performed By: #### CMP ####[facility] ([address] [place] [address] VIR Creatinine [Mass/Vol]0.88 mg/dLNormal0.40-1.00Fisher-Titus Medical CenterComment on above:Result Comment: METHOD TRACEABLE TO IDMS STANDARDPerformed By: #### CMP ####[facility] ([address] [address] VIRGFR/1.73 sq M.predicted among non-blacks MDRD (S/P/Bld) [Vol rate/Area] 73 mL/min/{1.73_m2}Normal>=60ProGrace Medical CenterComment on above:Result Comment: eGFR not reported due to non-numeric value for Creatinine.Reported eGFR is based ontheCKD-EPI 1 equation that doesnot use a race coefficient. Performed By: #### CMP ####[facility] ([address] [place] [address] VIRGlucose [Mass/Vol]146 mg/dHPvra57-22ZxrDizbkxGrace Medical CenterComment on above:Performed By: #### CMP ####[facility] ([address] [place] [address] VIRPotassium [Moles/Vol]3.5 mmol/LNormal3.5-5.0ProGrace Medical CenterComment on above: Performed By: #### CMP ####[facility] ([address] [place] [address] VIRProtein [Mass/Vol]6.0 g/dLNormal6.0-8.0ProGrace Medical CenterComment on above:Performed By: #### CMP ####[facility] ([address] [place] [address] VIRSodium [Moles/Vol]140 mmol/LSyvkuw178-469FeoJonxwm [facility]ont HospitalComment on above: Performed By: #### CMP ####[facility] ([address] [place] [address] VIRUrea nitrogen [Mass/Vol]24 mg/dLNormal5-27 ProMLos Robles Hospital & Medical CenterComment on above:Performed By: #### CMP ####[facility] ([address] [place] [address] VIRMAGNESIUM on 14-17-4447Mngjyuaiv [Mass/Vol]2.2 mg/dLNormal1.8-2.6ProGrace Medical CenterComment on above:Performed By: #### MG ####[facility] ([address] [place] [address] VIRPOTASSIUMon 12-06-2024 Potassium [Moles/Vol]3.3 mmol/LLow3.5-5.0ProGrace Medical CenterComment on above:Performed By: #### K ####[facility] ([facility])[address] [place] [address] [place] [address] VIRSUPERFICIAL WOUND CULTUREon 12-06-2024 SUPERFICIAL WOUND CULTURESusceptibleProGrace Medical CenterComment on above: Performed By: #### WCSUP ####[facility] ([facility])[address], [place] [address] VIRBEDSIDE GLUCOSEon 13-06-3039Ojpuvol [Mass/Vol]193 mg/mYXkhs01-96NkwTepbgnGrace Medical CenterComment on above:Performed By: #### BEDG ####[facility] ([facility])[address] [place] [address] AV.[place], [place] VIRGlucose [Mass/Vol]144 mg/hTEicz89-57CxcLlbyqzGrace Medical CenterComment on above:Performed By: #### BEDG ####[facility] ([address], [place] VIRBLOOD CULTUREon 12-05-2024 Bacteria identified Cx Nom (Bld)CULTURE RESULTS NO GROWTH 5 DAYSNormSelect Medical Cleveland Clinic Rehabilitation Hospital, Edwin ShawComment on above:Order Comment: *SIRS Criteria: (must display [...] Results may be affected.Performed By: #### BC ####[facility] ([facility])[address], [place] [address] VIR Bacteria identified Cx Nom (Bld)CULTURE RESULTS NO GROWTH 5 DAYSNormalProGrace Medical CenterComment on above:Order Comment: *SIRS Criteria: [...] Results may be affected.Performed By: #### BC ####[facility] ([place])[address] [facility] [address], [place] [address] VIRC- REACTIVE PROTEINon 12-05-2024 REACTIVE JIVWFDS81.3 mg/dLHigh<=0.7Fisher-Titus Medical CenterComment on above:Performed By: #### CRP ####[facility] ([facility])[address] [place], [place] [address]E.[place] [address] VIRCBC WITH AUTO DIFFERENTIALon 49-24-4395EWBOPOBJHPD ROSIE CELLS IN BLOOD BY LIGHT MICROSCOPY1+ NormalFisher-Titus Medical CenterComment on above:Result Comment: This is an appended report. These results have been appended to a previously preliminary verified report.Performed By: #### CBCA ####[facility] ([facility])[address] [place] [id number] VIRCELLAVISION DIFFERENTIAL TYPEMANUAL DIFFERENTIALNormalFisher-Titus Medical CenterComment on above:Result Comment: This is an appended report. These results have been appended to a previously preliminary verified report.Performed By: #### CBCA ####[facility] ([address] [id number] VIRCELLAVISION HYPOCHROMIA IN BLOOD BY LIGHT MICROSCOPY1+[facility] Comment on above:Result Comment: This is an appended report. These results have been appended to a previously preliminary verified report.Performed By: #### CBCA ####[facility] ([facility])[address] [place] [address] VIRCELLAVISION LYMPHOCYTES ABSOLUTE COUNT (10*3/UL) BY MANUAL COUNT0.8 10*3/uLLow1.0-3.5PMartins Ferry HospitalComment on above:Result Comment: This is an appended report. These results have been appended to a previously prelimi nary verified report.Performed By: #### CBCA ####[facility] ([facility])[address] [place] [address] [id number] VIRCELLAVISION LYMPHOCYTES RELATIVE PERCENT BY MANUAL COUNT6 %NormalProGrace Medical CenterComment on above:Result Comment: This is an appended report. These results have been appended to a previously preliminary verified report.Performed By: #### CBCA ####[facility] ([address] VIRCELLAVISION MONOCYTES ABSOLUTE COUNT (10*3/UL) IN BLOOD BY MANUAL COUNT0.8 10*3/uLNormal0.0-0.9Fisher-Titus Medical CenterComment on above:Result Comment: This is an appended report. These results have been appended to a previously preliminary verified report.Performed By: #### CBCA ####[facility]ITAL[facility] ([facility])[address] [place] [address] [id number] VIRCELLAVISION MONOCYTES RELATIVE PERCENT BY MANUAL COUNT6 %NormalProGrace Medical Center Comment on above:Result Comment: This is an appended report. These results have been appended to a previously preliminary verified report.Performed By: #### CBCA ####[facility] ([facility])[address] [place] [address] VIRCELLAVISION NEUTROPHILS ABSOLUTE COUNT BY MANUAL COUNT12.2 10*3/uLHigh 1.5-6.6Fisher-Titus Medical CenterComselect specialty hospital-[place] on above:Result Comment: This is an appended report. These results have been appended to a previously preliminary verified report.Performed By: #### CBCA ####[facility] ([facility])[address]ESA[facility] SYSTEMT, [id number] VIRCELLAVISION NEUTROPHILS RELATIVE PERCENT BY MANUAL COUNT88 %NormalFisher-Titus Medical CenterComselect specialty hospital-[place] on above: Result Comment: This is an appended report. These results have been appended to a previously preliminary verified report.Performed By: #### CBCA ####[facility] ([facility])[address]ESA[facility] JOHN'[facility] HE[facility] SYSTEMT, [id number] VIR CELLAVISION RBC FRAGMENTS1+NormalProGrace Medical CenterComment on above: Result Comment: This is an appended report. These results have been appended to a previously preliminary verified report.Performed By: #### CBCA ####[facility] ([address]FRESA[facility] SYSTEMT, [id number] VIR Erythrocyte distribution width (RBC) [Ratio]20.6 %High11.5-15Fisher-Titus Medical CenterComment on above:Performed By: #### CBCA ####[facility] ([address]ES[facility] SYSTEMT, [id number] VIRHematocrit (Bld) [Volume fraction]24.8 %Jhh38-25PksPqcepaFisher-Titus Medical CenterComment on above:Performed By: #### CBCA ####[facility] ([address], [id number] VIRHemoglobin (Bld) [Mass/Vol]7.8 g/dLLow11.7-15.5ProMedica Baldwin Park HospitalComment on above:Performed By: #### CBCA ####[facility] ([address], [id number] VIRMCH (RBC) [Entitic mass]25.0 fuNex85-63EcfVjqalvGrace Medical CenterComment on above:Performed By: #### CBCA ####[facility] ([address], [id number] VIRMCHC (RBC) [Mass/Vol]31.5 g/rEFrd10-96McnNsmajeGrace Medical CenterComment on above:Performed By: #### CBCA ####[facility] ([address], [id number] VIRMCV (RBC) [Entitic vol]79 kYCiu77-481ZfoWscjsbGrace Medical CenterComment on above:Performed By: #### CBCA ####[facility] ([address], [id number] VIRPlatelet mean volume (Bld) [Entitic vol]6.5 fLLow7-12PMartins Ferry HospitalComment on above:Performed By: #### CBCA ####[facility] ([address], [id number] VIRPlatelets (Bld) [#/Vol]235 10*3/yCWlksdk355-537UyaLvqrsb Fremont HospitalComment on above:Performed By: #### CBCA ####[facility] ([address], [id number] VIRRBC COUNT3.13 X10E12/LLow3.8-5.2PMartins Ferry HospitalComment on above:Performed By: #### CBCA ####[facility] ([address], [id number] VIRWBC (Bld) [#/Vol]13.8 10*3/uLHigh4-11ProGrace Medical CenterComment on above:Performed By: #### CBCA ####[facility] ([address] [place] [address] VIRCOMPREHENSIVE METABOLIC PANELon [id number] [Mass/Vol]3.4 g/dL Normal3.2-5.3PMartins Ferry HospitalComment on above:Performed By: #### CMP ####[facility] ([facility])[address], [place] [address] VIRALP [Catalytic activity/Vol]86 U/GLhxpbq09-653NakVvfhsmFisher-T[facility] Center Comment on above:Performed By: #### CMP ####[facility] ([facility])[address] [place] [address] VIRALT [Catalytic activity/Vol]14 U/L Normal<=31PMartins Ferry HospitalComment on above:Performed By: #### CMP ####[facility] ([facility])[address], [place] [address] VIRAnion gap [Moles/Vol]13 mmol/LNormal5-15[facility] Comment on above:Performed By: #### CMP ####[facility] ([place] [address] [place] [address] VIRAST [Catalytic activity/Vol]15 U/L Normal<=41ProGrace Medical CenterComment on above:Performed By: #### CMP ####[facility] ([place] [address], [place] [address] VIRBilirubin [Mass/Vol]0.5 mg/dLNormal0.3-1.2PMartins Ferry Hospital Comment on above:Performed By: #### CMP ####[facility] ([place] [address] [place] [address] VIRCalcium [Mass/Vol]8.9 mg/dLNormal 8.5-10.5PMartins Ferry HospitalComment on above:Performed By: #### CMP ####[facility] ([place] [address], [place] [address] VIRChloride [Moles/Vol]108 mmol/GQkijzt93-104VqoFzwtalFisher-Titus Medical Center Comment on above:Performed By: #### CMP ####[facility] ([place] [address] [place] [address] VIRCO2 [Moles/Vol]18 mmol/GAiy92-59 ProMLos Robles Hospital & Medical CenterComment on above:Performed By: #### CMP ####[facility] ([address] [place] [address] VIR Creatinine [Mass/Vol]1.20 mg/dLHigh0.40-1.00ProGrace Medical CenterComment on above:Result Comment: METHOD TRACEABLE TO IDMS STANDARDPerformed By: #### CMP ####[facility] ([address] [address] VIRGFR/1.73 sq M.predicted among non-blacks MDRD (S/P/Bld) [Vol rate/Area] 50 mL/min/{1.73_m2}Low>=60ProGrace Medical CenterComment on above:Result Comment: eGFR not reported due to non-numeric value for Creatinine.Reported eGFR is based ontheCKD-EPI 2020 equation that doesnot use a race coefficient. Performed By: #### CMP ####[facility] ([address] [address] VIRGlucose [Mass/Vol]123 mg/nKRsld85-63FbyBuouxuGrace Medical CenterComment on above:Performed By: #### CMP ####[facility] ([address] [address] VIRPotassium [Moles/Vol]3.1 mmol/LLow3.5-5.0ProGrace Medical CenterComment on above: Performed By: #### CMP ####[address] [address] VIRProtein [Mass/Vol]6.7 g/dLNormal6.0-8.0ProGrace Medical CenterComment on above:Performed By: #### CMP ####[facility] ([address] [place] [address] VIRSodium [Moles/Vol]139 mmol/MUaylpg865-169JwfMvvqpt Fremont HospitalComment on above: Performed By: #### CMP ####[facility] ([address] [place] [address] VIRUrea nitrogen [Mass/Vol]30 mg/dLHigh5-27Fisher-Titus Medical CenterComment on above:Performed By: #### CMP ####[facility] ([address] [place] [address] VIRLACTATE W/ REFLEX on [id number] W/REFLEX1.1 mmol/LNormal0.4-2.0[facility] Comment on above:Order Comment: Result did not trigger repeat Lactate,re-order if needed.Performed By: #### LACTS ####[facility] ([address] [address] VIRMRSA PCR NASAL SWABon 12-05-2024 MRSA PCR NASAL SWABNegativeNormalNegativeProGrace Medical CenterComment on above:Performed By: #### MRSPCR ####[facility] ([facility])[address] [address], [place] [address] VIRPOTASSIUMon 98-24-3786Djcdedegi [Moles/Vol]3.4 mmol/LLow3.5-5.0Fisher-Titus Medical CenterComment on above: Performed By: #### K ####[facility] ([address] [address] VIRXR FOOT LT MIN 3 VWSon 53-20-6951SJ FOOT LT MIN 3 VWS NormalFisher-Titus Medical CenterXR HIPS BILAT W OR WO PELVIS 5+ VWSon 12-05-2024 XR HIPS BILAT W OR WO PELVIS 5+ VWSNormalFisher-Titus Medical CenterCB with Auto Differentialon 31-41-7300Vjflgvxzt (Bld) [#/Vol]0.07 10*3/uLBon SecOhioHealth Nelsonville Health CenterBasophils/100 WBC (Bld)1 %0 - 2 %Bon [...] [Entitic mass]25.5 pg25.2 - 33.5 pgBon [facility] Hospitaly HealthMCHC (RBC) [Mass/Vol]31.2 g/dL 28.4 - [...] HealthRBC (Bld) [#/Vol]3.41 10*6/uLLow3.95 - 5.11 m/uLBon [facility] HospitalSegmented neutrophils/100 WBC (Bld)8.08 %Bon [facility] HospitalWBC other (Bld) [#/Vol]10.9Bon [facility] HospitalBon [facility] HospitalCMPon 16-20-5070Yvrforj [Mass/Vol]3.5 g/dL3.5 - 5.2 g/dLBon [facility] [place] [facility] HospitalAlbumin/Globulin [Mass ratio]1.6 {ratio}1.0 - 2.5Bon [facility] [place] [facility] HospitalALP [Catalytic activity/Vol]68 U/L35 - 104 U/LBon [facility] HealthALT [Catalytic activity/Vol]8 U/LLow10 - 35 U/LBon [facility] [place] [facility] HospitalAnion gap [Moles/Vol]11 mmol/L9 - 16 mmol/LBon [facility] HealthAST [Catalytic activity/Vol]11 U/L10 - 35 U/LBon [facility] HospitalBilirubin [Mass/Vol]mg/dL 0.00 - 1.20 mg/dLBon [facility] [place] [facility] HospitalCalcium [Mass/Vol]8.6 mg/dL8.6 - 10.4 mg/dLBon [facility] [place] [facility] HospitalChloride [Moles/Vol]110 mmol/LHigh98 - 107 mmol/L [facility] CenterCO2 [Moles/Vol]18 mmol/LLow20 - 31 mmol/LBon [facility] HospitalCreatinine [Mass/Vol]0.7 mg/dL0.50 - 0.90 mg/dLBon [facility] [place] [facility] HospitalEst, Glom Filt Rate89- PINFBon [facility] [place] [facility] HospitalComment on above: These results are not [...] secretion. Glucose [Mass/Vol]84 mg/dL74 - 99 mg/dLBon [facility] [place] [facility] HospitalInterpretation and review of laboratory resultsAbnormalBon [facility] HealthPotassium [Moles/Vol]4.0 mmol/L3.7 - 5.3 mmol/LBon [facility] HealthProtein [Mass/Vol] 5.8 g/dLLow6.6 - 8.7 g/dLBon [facility] HealthSodium [Moles/Vol]139 mmol/L136 - 145 mmol/LBon [facility] HospitalUrea nitrogen [Mass/Vol]58 mg/dLHigh8 - 23 mg/dLBon [facility] HospitalUrea nitrogen/Creatinine [Mass ratio]83 mg/mgHigh9 - 20Bon [facility] HospitalBon [facility] HealthCT Pelvis WO contraston [id number] abnormal right hip is similar in appearance from the previous study. If there is strong clinical concern for pathologic fracture, nonemergent MRI should be considered.. [facility] RIS CONSOLIDATEDEXAMINATION: CT OF [...] pathologic fracture, nonemergent MRI should be considered.. [facility] CenterRadiology Study observation (narrative)[facility] CenterCT Pelvis WO contrastOrdered By: Ramya Maico on [id number] [facility] RepRegen Work Phone: Microscopic Urinalysison 25-69-0602Eevcwgipoe cells LM.HPF (Urine sed) [#/Area]0 TO 2Bon SecOhioHealth Nelsonville Health CenterRBC LM.HPF (Urine sed) [#/Area]NoneBon [facility] [place] [facility] HospitalWBC LM.HPF (Urine sed) [#/Area]0 TO 2Bon [facility] HospitalBon [facility] HealthProtime-INRon 18-94-6896NOF Coag (PPP) [Relative time]1.4 {INR}[facility] CenterComment on above: Therapeutic Range: Moderate Anticoagulant Intensity: INR = 2.0-3.0 High Anticoagulant Intensity: INR = 2.5-3.5 Interpretation and review of laboratory resultsAbnormalSouthern [facility] Regional Medical Center PT Coag (PPP) [Time]17.4 sHighBon [facility] HospitalBon [facility] Health Urinalysison 56-72-6281Xzmjptggr Ql (U)NegativeNEGATIVEBon [facility] Phoenix2heuresavant [facility] Health Clarity (U)ClearClearBon [facility] HealthColor (U)YellowYellowSouthern Virginia Regional Medical CenterGlucose Test strip (U) [Mass/Vol]NegativeNEGATIVE mg/dLBon [facility] RepRegenHemoglobin Auto test strip Ql (U)NegativeNEGATIVEVcu Medical Center HealthInterpretation and review of laboratory resultsAbnormalBon [facility] HealthKetones (U) [Mass/Vol]NegativeNEGATIVE mg/dLBon [facility] Leukocyte esterase Test strip Ql (U)NegativeNEGATIVEBon [facility] Health Nitrite Ql (U)NegativeNEGATIVEBon SecSavoy Medical Center HealthpH (U)6.0 [pH]5.0 - 9.0[facility] HealthProtein (U) [Mass/Vol]TRACEAbnormalNEGATIVE mg/dLBon SecFranciscan HealthGrand Round Table HealthSpecific gravity (U) [Rel density]1.0151.010 - 1.020Bon [facility] [place] [facility] HospitalUrobilinogen Qn (U)Normal0.0 - 1.0 EU/dLBon [facility] HospitalBon [facility] HospitalXR Foot - left 3 Viewson . Osteopenia. 2. Small calcaneal spur. 3. Soft tissue swelling and ulceration at the plantar heel. [facility] CONSOLIDATEDEXAM: 3 or more VIEW(S) XRAY OF THE LEFT FOOT 11/19/2024 12:43:02 PM COMPARISON: 08/12/2024 CLINICAL HISTORY: r/o osteo. ORDERING SYSTEM PROVIDED HISTORY: r/o osteo; TECHNOLOGIST PROVIDED HISTORY: r/o osteo FINDINGS: BONES AND JOINTS: Osteopenia. Small calcaneal spur. No acute fracture. No joint dislocation. SOFT TISSUES: Soft tissue swelling and ulceration at the plantar heel. [facility] Nia Rouse MD - 11/19/2024 EXAM: 3 [...] swelling and ulceration at the plantar heel. [facility] CenterRadiology Study observation (narrative)[facility] Foot - left 3 ViewsOrdered By: Nia Trejo on 26-60-8169Ozo [facility] Work Phone: XR Pelvis and Hip - bilateral Viewson . No acute osseous abnormality. If there is persistent clinical concern or difficulty weight-bearing CT can be obtained. 2. Severe degenerative changes to the right hip joint appears stable. 3. Stable degenerative changes to both SI joints and visualized lumbar spine. [facility] CONSOLIDATEDEXAMINATION: ONE X-RAY VIEW OF THE PELVIS [...] Multiple surgical clips to bilateral inguinal regions. [facility] Diego Castellon MD - [...] both SI joints and visualized lumbar spine. [facility] Portable ZooRadiology Study observation (narrative)[facility] Portable ZooXR Pelvis and Hip - bilateral ViewsOrdered By: Diego Odom on [id number] [employer] Work Phone: Basic Metabolic Panel w/ Reflex to MGon 08-17-2024 Anion gap [Moles/Vol]6 mmol/LLow9 - 16 mmol/LBon Portable ZooCalcium [Mass/Vol]8.7 mg/dL8.6 - 10.4 mg/dLBon [facility] HealthChloride [Moles/Vol] 99 mmol/L98 - 107 mmol/LBon [facility] HealthCO2 [Moles/Vol]32 mmol/LHigh20 - 31 mmol/LBon [facility] HospitalCreatinine [Mass/Vol]0.8 mg/dL0.50 - 0.90 mg/dLBon [facility] [place] [facility] HospitalEstRadha Rate77- PINFBon [facility] Comment on above: These results are [...] that affects renal tubular secretion. Glucose [Mass/Vol]117 mg/aWJpbs44 - 99 mg/dLBon [facility] Interpretation and review of laboratory resultsAbnormalBon [facility] Potassium [Moles/Vol]4.9 mmol/L3.7 - 5.3 mmol/LBon [facility] HospitalSodium [Moles/Vol]137 mmol/L136 - 145 mmol/LBon [facility] HospitalUrea nitrogen [Mass/Vol]15 mg/dL8 - 23 mg/dLBon [facility] HospitalUrea nitrogen/Creatinine [Mass ratio]19 mg/mg9 - 20Bon [facility] HospitalCBC auto differentialon [id number] (Bld) [#/Vol]0.09 10*3/uLBon [facility] HospitalBasophils/100 WBC (Bld)1 %0 - 2 %[facility] CenterEosinophils (Bld) [#/Vol]0.36 10*3/uLBon [facility] HospitalEosinophils/100 WBC (Bld)5 % High1 - 4 %[facility] CenterErythrocyte distribution width (RBC) [Ratio] 18.4 %High11.8 - 14.4 %[facility] CenterHematocrit (Bld) [Volume fraction]33.4 %Low36.3 - 47.1 %[facility] CenterHemoglobin (Bld) [Mass/Vol]9.7 g/dLLow11.9 - 15.1 g/dLBon [facility] HealthImmature granulocytes (Bld) [#/Vol][facility] HealthImmature granulocytes/100 WBC (Bld)0 %0[facility] HealthInterpretation and review of laboratory results AbnormalBon [facility] HealthLymphocytes/100 WBC (Bld)19 %Low24 - 43 %[facility] HealthLymphocytes/100 WBC (Bld)1.29 %[facility] HospitalH (RBC) [Entitic mass]25.3 pg25.2 - 33.5 pgBon Secours Middletown HospitalHC (RBC) [Mass/Vol]29 g/dL28.4 - 34.8 g/dLBon Secours Middletown HospitalV (RBC) [Entitic vol] 87.2 fL82.6 - 102.9 fLBon Secours Merc HealthMonocytes/100 WBC (Bld)11 %3 - 12 %[facility] HealthMonocytes/100 WBC (Bld)0.74 %[facility] Neutrophils/100 WBC (Bld)64 %36 - 65 %[facility] HospitalNucleated RBC/100 WBC (Bld) [Ratio]0 %0.0 per 100 WBCBon Secours [facility]erm[facility] Hospitaly HealthPlatelet mean volume (Bld) [Entitic vol]9.4 fL8.1 - 13.5 fLBon [facility] HealthPlatelets (Bld) [#/Vol]385 10*3/uLBon [facility] HealthRBC (Bld) [#/Vol]3.83 10*6/uLLow3.95 - 5.11 m/uLBarrow Neurological Institute Secours Wilson Street HospitalSegmented neutrophils/100 WBC (Bld)4.34 %[facility] HospitalWBC other (Bld) [#/Vol]6.8[facility] HealthB[facility]rological Institute Secours [facility] Hospitaly HealthCulture, Blood 1on [id number] comment (Unsp spec) [Interp]16ML LFABon Secours Clerm[facility] County Hospitaly HealthCulture, Blood 2on 68-82-8113Wsgvegt comment (Unsp spec) [Interp]2 ML RIGHT WRIST ONE BOTTLEBon SecOhioHealth Nelsonville Health Center Laboratoryon [id number] identified Cx Nom (Unsp spec)NO GROWTH 5 DAYSBon [facility] HospitalNo Panel Informationon 51-64-8255Rthcogvb Description.BLOODBon [facility] HospitalBasic Metabolic Panel w/ Reflex to MGon 47-62-3734Ubcbv gap [Moles/Vol]8 mmol/LLow9 - 16 mmol/L Bon [facility] HospitalCalcium [Mass/Vol]8.8 mg/dL8.6 - 10.4 mg/dLBon [facility] HospitalChloride [Moles/Vol]96 mmol/LLow98 - 107 mmol/LBon [facility] HospitalCO2 [Moles/Vol]31 mmol/L20 - 31 mmol/LBon [facility] HospitalCreatinine [Mass/Vol]0.8 mg/dL0.50 - 0.90 mg/dLBon [facility] CenterGrand Round Table Dunlap Memorial HospitalEst, Glom Filt Rate 84- PINFBon [facility] [place] [facility] HospitalComment on above: These results are not [...] that affects renal tubular secretion. Glucose [Mass/Vol]100 mg/tZEwfo48 - 99 mg/dLBon [facility] Interpretation and review of laboratory resultsAbnormalBon [facility] Potassium [Moles/Vol]4.7 mmol/L3.7 - 5.3 mmol/LBon [facility] HospitalSodium [Moles/Vol]135 mmol/WBrc242 - 145 mmol/LBon [facility] HospitalUrea nitrogen [Mass/Vol]13 mg/dL8 - 23 mg/dLBon [facility] RepRegenUrea nitrogen/Creatinine [Mass ratio]16 mg/mg9 - 20Bon [facility] HospitalCBC auto differentialon [id number] (Bld) [#/Vol]0.1 10*3/uLBon [facility] Phoenix2heuresavant Wilson Street HospitalBasophils/100 WBC (Bld)1 %0 - 2 %[facility]y HealthEosinophils (Bld) [#/Vol]0.36 10*3/uLBon [facility]ours [facility]cy HealthEosinophils/100 WBC (Bld)5 % High1 - 4 %[facility] HealthErythrocyte distribution width (RBC) [Ratio] 18.3 %High11.8 - 14.4 %[facility] HealthHematocrit (Bld) [Volume fraction]34.7 %Low36.3 - 47.1 %Bon SecSavoy Medical Center HealthHemoglobin (Bld) [Mass/Vol]10.3 g/dLLow11.9 - 15.1 g/dLBon [address] HospitalImmature granulocytes (Bld) [#/Vol][facility] HealthImmature granulocytes/100 WBC (Bld)0 %0[facility] HealthInterpretation and review of laboratory results AbnormalBon [facility] HealthLymphocytes/100 WBC (Bld)16 %Low24 - 43 %Bon SecSav[facility] Medical Center HealthLymphocytes/100 WBC (Bld)1.1 %[facility] SecRegency Hospital Cleveland EastH (RBC) [Entitic mass]25.8 pg25.2 - 33.5 pgBon [facility]ours Middletown HospitalHC (RBC) [Mass/Vol]29.7 g/dL28.4 - 34.8 g/dLBon SecRegency Hospital Cleveland EastV (RBC) [Entitic vol]86.8 fL82.6 - 102.9 fLBon [facility] HealthMonocytes/100 WBC (Bld)11 %3 - 12 %[facility] SecSavoy Medical Center HealthMonocytes/100 WBC (Bld)0.77 %[facility] SecOhioHealth Nelsonville Health CenterNeutrophils/100 WBC (Bld)67 %High36 - 65 %[facility] SecOhioHealth Nelsonville Health Center Nucleated RBC/100 WBC (Bld) [Ratio]0 %0.0 per 100 WBCSouthern Virginia Regional Medical Center Platelet mean volume (Bld) [Entitic vol]8.9 fL8.1 - 13.5 fLBon [facility]ours [facility] HealthPlatelets (Bld) [#/Vol]362 10*3/uLBon [facility] HealthRBC (Bld) [#/Vol]4 10*6/uL3.95 - 5.11 m/uLSouthern Virginia Regional Medical CenterSegmented neutrophils/100 WBC (Bld)4.58 %Bon [facility] HospitalWBC other (Bld) [#/Vol] 6.9Bon [facility] HospitalBasic Metabolic Panel w/ Reflex to MGon 15-94-3057Wfaqf gap [Moles/Vol]7 mmol/LLow9 - 16 mmol/LBon [facility] HospitalCalcium [Mass/Vol]8.7 mg/dL8.6 - 10.4 mg/dLBon [facility] HospitalChloride [Moles/Vol]98 mmol/L98 - 107 mmol/LBon [facility] HospitalCO2 [Moles/Vol]31 mmol/L20 - 31 mmol/LBon [facility] HospitalCreatinine [Mass/Vol] 0.7 mg/dL0.50 - 0.90 mg/dLBon [facility] HospitalEst, Glom Filt Rate- PINFBon [facility] [place] [facility] HospitalComment on above: These results are not [...] that affects renal tubular secretion. Glucose [Mass/Vol]104 mg/vOPisr74 - 99 mg/dLBon [facility] Interpretation and review of laboratory resultsAbnormalBon [facility] Potassium [Moles/Vol]5 mmol/L3.7 - 5.3 mmol/LBon [facility] HospitalSodium [Moles/Vol]136 mmol/L136 - 145 mmol/LBon [facility] HospitalUrea nitrogen [Mass/Vol]12 mg/dL8 - 23 mg/dLBon [facility] HospitalUrea nitrogen/Creatinine [Mass ratio]17 mg/mg9 - 20Bon [facility] HospitalCBC auto differentialon [id number] (Bld) [#/Vol]0.08 10*3/uLBon [facility] [place] [facility] HospitalBasophils/100 WBC (Bld)1 %0 - 2 %Bon [facility] Hospitaly HealthEosinophils (Bld) [#/Vol]0.44 10*3/uLBon [facility] HealthEosinophils/100 WBC (Bld)6 % High1 - 4 %Bon [facility]cchel[facility] HealthErythrocyte distribution width (RBC) [Ratio] 18.6 %High11.8 - 14.4 %Bon [facility]cc[facility] HealthHematocrit (Bld) [Volume fraction]34.4 %Low36.3 - 47.1 %Bon [facility]cc[facility] HealthHemoglobin (Bld) [Mass/Vol]10.2 g/dLLow11.9 - 15.1 g/dLBon [address] HospitalImmature granulocytes (Bld) [#/Vol][facility] HealthImmature granulocytes/100 WBC (Bld)0 %0Bon SecSav[facility] Medical Center HealthInterpretation and review of laboratory results AbnormalBon SecFranciscan Healthy HealthLymphocytes/100 WBC (Bld)17 %Low24 - 43 %Bon [facility] HealthLymphocytes/100 WBC (Bld)1.19 %[facility] Secchelsey Wilson Street HospitalMCH (RBC) [Entitic mass]26.2 pg25.2 - 33.5 pgBon SecRegency Hospital Cleveland EastHC (RBC) [Mass/Vol]29.7 g/dL28.4 - 34.8 g/dLBon SecOhioHealth Nelsonville Health CenterMCV (RBC) [Entitic vol]88.2 fL82.6 - 102.9 fLBarrow Neurological Institute Secchelsey [facility] HealthMonocytes/100 WBC (Bld)10 %3 - 12 %[facility] HealthMonocytes/100 WBC (Bld)0.71 %[facility] Secchelsey [address] HospitalNeutrophils/100 WBC (Bld)66 %High36 - 65 %[facility] SecSavoy Medical Center Health Nucleated RBC/100 WBC (Bld) [Ratio]0 %0.0 per 100 WBCSouthern Virginia Regional Medical Center Platelet mean volume (Bld) [Entitic vol]9.7 fL8.1 - 13.5 fLBon [facility]cchelsey [facility] HealthPlatelets (Bld) [#/Vol]385 10*3/uLBon [facility] HealthRBC (Bld) [#/Vol]3.9 10*6/uLLow3.95 - 5.11 m/uLSouthern Virginia Regional Medical CenterSegmented neutrophils/100 WBC (Bld)4.78 %[facility] CenterWBC other (Bld) [#/Vol] 7.2Bon [facility] Centern and TIBCon 08-15-2024 Iron [Mass/Vol]15 ug/dLLow37 - 145 ug/dLBon [facility] Hospitaln binding capacity [Mass/Vol]270 ug/dL250 - 450 ug/dLBon [facility] Hospitaln saturation [Mass fraction]6 %Low20 - 55 %[facility] CenterUIBC255 ug/dL 112 - 347 ug/dLBon [facility] HospitalNo Panel Informationon 08-15-2024 Interpretation and review of laboratory resultsAbnormCJW Medical CenterReticulocyteson [id number] reticulocytes/Total reticulocytes (Bld)23.4 %High2.7 - 18.3 %[facility] CenterInterpretation and review of laboratory resultsAbnormLewisGale Hospital AlleghanyRetic Hemoglobin 22.1 pgLow28.2 - 35.7 pgSouthern Virginia Regional Medical CenterReticulocytes (Bld) [#/Vol]0.108 10*3/uLHighSouthern Virginia Regional Medical CenterReticulocytes/100 RBC (Bld)2.8 %High0.5 - 1.9 %[facility] CenterVitamin B12 & Folateon 38-87-5392Bzpejsqqr (Vitamin B12) [Mass/Vol]494 pg/mL232 - 1245 pg/mLSouthern Virginia Regional Medical CenterFolate [Mass/Vol]5.3 ng/mL4.8 - 24.2 ng/mLSentara Norfolk General HospitalVitamin D 25 Hydroxyon [id number]-jrjacpmyqconqr D3 [Mass/Vol]19.8 ng/mLLow30.0 - 100.0 ng/mLSouthern Virginia Regional Medical CenterComment on above: Reference Range: Vitamin D status Range Deficiency <20 ng/mL Mild Deficiency 20-30 ng/mL Sufficiency 30-100 ng/mL Toxicity >100 ng/mL Basic Metabolic Panel w/ Reflex to MGon 51-93-6713Wfgcf gap [Moles/Vol]9 mmol/L9 - 16 mmol/LBon Secours [...] HealthBon [facility]ours Mercy HealthCBC auto differential on 38-30-8242Jpdgxusox (Bld) [#/Vol]0.06 10*3/uLBon [facility] Basophils/100 WBC (Bld)1 %0 - 2 %[facility] HealthEosinophils (Bld) [#/Vol]0.5 10*3/uLHighBon [facility] HealthEosinophils/100 WBC (Bld)6 %High1 - 4 %[facility] HealthErythrocyte distribution width (RBC) [Ratio]18.8 % High11.8 - 14.4 %[facility] Hospitaly HealthHematocrit (Bld) [Volume fraction]33.7 %Low36.3 - 47.1 %[facility] HealthHemoglobin (Bld) [Mass/Vol]10 g/dLLow 11.9 - 15.1 g/dLBon [facility]ours [facility] Hospitaly HealthImmature granulocytes (Bld) [#/Vol]0.03 10*3/uLBon [facility] HealthImmature granulocytes/100 WBC (Bld)0 %0Bon [facility] Hospitaly HealthInterpretation and review of laboratory resultsAbnormalBon [facility]ours [facility] HealthLymphocytes/100 WBC (Bld)14 %Low24 - 43 %[facility] HealthLymphocytes/100 WBC (Bld)1.07 %LowBon SecRegency Hospital Cleveland EastH (RBC) [Entitic mass]25.7 pg25.2 - 33.5 pgBon Secours Middletown HospitalHC (RBC) [Mass/Vol] 29.7 g/dL28.4 - 34.8 g/dLBon Secours Clerm[facility] County Hospitaly [facility] HospitalMCV (RBC) [Entitic vol]86.6 fL 82.6 - 102.9 fLBon [facility]ours [facility] HealthMonocytes/100 WBC (Bld)9 %3 - 12 %[facility] HealthMonocytes/100 WBC (Bld)0.7 %Bon SecSav[facility] Medical Center Health Neutrophils/100 WBC (Bld)70 %High36 - 65 %[facility] Hospitaly HealthNucleated RBC/100 WBC (Bld) [Ratio]0 %0.0 per 100 WBCBon Secours Clermont County Hospitaly HealthPlatelet mean volume (Bld) [Entitic vol]9.4 fL8.1 - 13.5 fLBon Secours Mercy HealthPlatelets (Bld) [#/Vol]331 10*3/uLBon [facility] HealthRBC (Bld) [#/Vol]3.89 10*6/uLLow 3.95 - 5.11 m/uLBon [facility]ours [facility] Hospitaly HealthSegmented neutrophils/100 WBC (Bld)5.56 %[facility] Hospitaly HealthWBC other (Bld) [#/Vol]7.9[facility] HospitalBon SecOhioHealth Nelsonville Health CenterBasic Metab w/rfx MGon 66-68-6833Cfqij gap [Moles/Vol]11 mmol/LNormal9-16[facility] HospitalComment on above:Performed By: #### CMPX, CDP #### [facility] [address] [place] [address] Dr[address] [place], [place] [id number] Supervisor Grading: Apolinar Lemus MDBUN/CRE Bzqyw09Kqqdja8-38Aqhen [facility] Comment on above:Performed By: #### CMPX, CDP #### [address] [place] [address] Supervisor Grading: Apolinar Lemus MDCalcium [Mass/Vol]8.4 mg/dLLow8.6-10.4[facility] HospitalComment on above:Performed By: #### CMPX, CDP #### [address] [place] [address] Supervisor Grading: ANNIAT Mckenziehloride [Moles/Vol]102 mmol/MTctamz10-679IeahvBellevue HospitalComment on above:Performed By: #### CMPX, CDP #### [address] [place] [address] Supervisor Grading: Apolinar Lemus MDCO2 [Moles/Vol]27 mmol/EXktqnq21-06Eqdps [facility] HospitalComment on above:Performed By: #### CMPX, CDP #### [facility] [address] [place] [address] [place] [address] Supervisor Grading: ANNITA Mckenziereatinine [Mass/Vol]0.7 mg/dLNormal0.50-0.90B[facility] HospitalComment on above:Performed By: #### CMPX, CDP #### [address] [place], [place] [id number] Supervisor Grading: Apolinar Lemus MDGFR/1.73 sq M.predicted among non-blacks MDRD (S/P/Bld) [Vol rate/Area]mL/min/{1.73_m2}Normal>60B[facility] HospitalComment on above:Result Comment: These results are [...] tubular secretion.Performed By: #### CMPX, CDP #### [address] [place] [address] Supervisor Grading: Apolinar Lemus MDGlucose [Mass/Vol]112 mg/aZPmlq18-98WvkkjAkron Children's HospitalComment on above:Performed By: #### CMPX, CDP #### [address] [place], [place] [id number] Supervisor Grading: ROJAS Mckenzieotassium [Moles/Vol]3.6 mmol/LLow3.7-5.3MAkron Children's HospitalComment on above:Performed By: #### CMPX, CDP #### [address] [place], [place] [id number] Supervisor Grading: ADÁN Mckenzieodium [Moles/Vol]140 mmol/HRqtwcp816-851VzfzaBellevue HospitalComment on above:Performed By: #### CMPX, CDP #### [address] [place] [address] Supervisor Grading: Apolinar Lemus MDUrea nitrogen [Mass/Vol]12 mg/dLNormal8-23[facility] HospitalComment on above:Performed By: #### CMPX, CDP #### [address] [place] [address] Supervisor Grading: Apolinar Lemus MDVeterans Administration Medical Center Metabolic Panel w/ Reflex to MGon 08-13-2024 Anion gap [Moles/Vol]11 mmol/L9 - 16 mmol/LBon Secours Forevery HealthCalcium [Mass/Vol]8.4 mg/dLLow8.6 - 10.4 mg/dLBon Secours [facility]cy HealthChloride [Moles/Vol]102 mmol/L98 - 107 mmol/LBon [facility]y HealthCO2 [Moles/Vol]27 mmol/L20 - 31 mmol/LBon [facility]y HealthCreatinine [Mass/Vol]0.7 mg/dL0.50 - 0.90 mg/dLBon Secours [facility] Hospitaly HealthEst, Glom Filt Rate- PINFBon SecFranciscan HealthGrand Round Table [facility] Memorial HospitalComment on above: These results are not [...] that affects renal tubular secretion. Glucose [Mass/Vol]112 mg/sRDqym44 - 99 mg/dLBon [facility] Med CenterSenseg Interpretation and review of laboratory resultsAbnormalBon SecOhioHealth [facility] Potassium [Moles/Vol]3.6 mmol/LLow3.7 - 5.3 mmol/LBon Secours [facility] Hospitaly [facility] HospitalSodium [Moles/Vol]140 mmol/L136 - 145 mmol/LBon SecFranciscan Healthy HealthUrea nitrogen [Mass/Vol]12 mg/dL8 - 23 mg/dLBon Secours [facility] Hospitaly HealthUrea nitrogen/Creatinine [Mass ratio]17 mg/mg9 - 20[facility]y HealthBon Secours [facility] Hospitaly [facility] HospitalCBC auto differentialon [id number] (Bld) [#/Vol]0.07 10*3/uLBon Secours Mercy HealthBasophils/100 WBC (Bld)1 %0 - 2 %[facility]y HealthEosinophils (Bld) [#/Vol]0.54 10*3/uLHighBon Secours Mercy HealthEosinophils/100 WBC (Bld)6 %High1 - 4 %[facility]y HealthErythrocyte distribution width (RBC) [Ratio]19.1 %High11.8 - 14.4 %[facility] Hospitaly HealthHematocrit (Bld) [Volume fraction]34.3 %Low36.3 - 47.1 %[facility] Hospitaly HealthHemoglobin (Bld) [Mass/Vol]10.1 g/dLLow11.9 - 15.1 g/dLBon Secours [facility] Hospitaly HealthImmature granulocytes (Bld) [#/Vol]0.03 10*3/uLBon Secours Mercy HealthImmature granulocytes/100 WBC (Bld)0 %0[facility] HealthInterpretation and review of laboratory resultsAbnormalBon Secours [facility] Hospitaly HealthLymphocytes/100 WBC (Bld)18 %Low24 - 43 %[facility]y HealthLymphocytes/100 WBC (Bld)1.55 %Bon SecReg[facility] Hospital Cleveland EastH (RBC) [Entitic mass]25.4 pg25.2 - 33.5 pgBon Secours Middletown HospitalHC (RBC) [Mass/Vol]29.4 g/dL28.4 - 34.8 g/dLBon Secours Wilson Street HospitalMCV (RBC) [Entitic vol]86.4 fL82.6 - 102.9 fLBon Secours [facility] HealthMonocytes/100 WBC (Bld)10 %3 - 12 %[facility]y HealthMonocytes/100 WBC (Bld)0.85 %[facility] HealthNeutrophils/100 WBC (Bld)65 %36 - 65 %[facility]y HealthNucleated RBC/100 WBC (Bld) [Ratio]0 %0.0 per 100 WBCBon Secours Clermont County Hospitaly HealthPlatelet mean volume (Bld) [Entitic vol]9.1 fL8.1 - 13.5 fLBon Secours Cl[facility] County Hospitaly HealthPlatelets (Bld) [#/Vol]305 10*3/uLBon [facility]ours [facility] Hospitaly HealthRBC (Bld) [#/Vol]3.97 10*6/uL3.95 - 5.11 m/uLBon Secours [facility] Hospitaly [facility] HospitalSegmented neutrophils/100 WBC (Bld)5.72 %[facility]y HealthWBC other (Bld) [#/Vol] 8.8Bon [facility] HospitalBon [facility] with Diffon 08-13-2024 Abs. Basophil0.07 k/uLNormal0.00-0.20[facility] HospitalComment on above: Performed By: #### CMPX, CDP #### [address] [place], [place] [address] Supervisor Grading: Cruz Mckenzie.Imm.Granulocyte0.03 k/uLNormal0.00-0.30[facility] HospitalComment on above:Performed By: #### CMPX, CDP #### [address] [place] [address] Supervisor Grading: Cruz Mckenzie.Neutrophil (Seg)5.72 k/uLNormal1.50-8.10[facility] HospitalComment on above:Performed By: #### CMPX, CDP #### [address] [place], [place] [address] Supervisor Grading: Apolinar Lemus MDBasophils/100 WBC (Bld)1 %Normal0-2MMagruder Hospital HospitalComment on above:Performed By: #### CMPX, CDP #### [address] [place], [place] [address] Supervisor Grading: JADEN Mckenzieosinophils (Bld) [#/Vol]0.54 10*3/uLHigh0.00-0.[address] [facility] HospitalComment on above:Performed By: #### CMPX, CDP #### [address] [place], [place] [id number] Supervisor Grading: JADEN Mckenzieosinophils/100 WBC (Bld)6 %High1-4[facility] HospitalComment on above:Performed By: #### CMPX, CDP #### [address] [place], [place] 6226283 Supervisor Grading: Apolinar Lemus MDErythrocyte distribution width (RBC) [Ratio]19.1 % High11.8-14.4[facility] HospitalComment on above:Performed By: #### CMPX, CDP #### [address] [place], [place] [address]83 Supervisor Grading: Apolinar Lemus MDHematocrit (Bld) [Volume fraction]34.3 %Low 36.3-47.1MMagruder Hospital HospitalComment on above:Performed By: #### CMPX, CDP #### [address] [place], [place] [address]83 Supervisor Grading: Apolinar Lemus MDHemoglobin (Bld) [Mass/Vol]10.1 g/dLLow11.9-15.1 [facility] HospitalComment on above:Performed By: #### CMPX, CDP #### [address] [place], [place] [id number] Supervisor Grading: Apolinar Lemus MDImmature granulocytes/100 WBC (Bld)0 %Casanb0XzwzrBellevue HospitalComment on above:Performed By: #### CMPX, CDP #### [address] [place], [facility] Supervisor Grading: Apolinar Lemus MDLymphocytes (Bld) [#/Vol]1.55 10*3/uLNormal 1.10-3.70[facility] HospitalComment on above:Performed By: #### CMPX, CDP #### [address] [place], [place] [id number] Supervisor Grading: Apolinar Lemus MDLymphocytes/100 WBC (Bld)18 %Yvu71-50Ethry [facility] HospitalComment on above:Performed By: #### CMPX, CDP #### [address] [place], [place] [id number] Supervisor Grading: BUZZ MckenzieCH (RBC) [Entitic mass]25.4 orYiivjc28.2-33.5 [facility] HospitalComment on above:Performed By: #### CMPX, CDP #### [address] [place], [place] [address]83 Supervisor Grading: BUZZ MckenzieCHC (RBC) [Mass/Vol]29.4 g/kINorzbh46.4-34.8[facility] HospitalComment on above:Performed By: #### CMPX, CDP #### [address] [place], [place] [id number] Supervisor Grading: BUZZ MckenzieCV (RBC) [Entitic vol]86.4 lGVoxtvm57.6-102.[address] [facility] HospitalComment on above:Performed By: #### CMPX, CDP #### [address] [place], [place] [id number] Supervisor Grading: BUZZ Mckenzieonocytes (Bld) [#/Vol]0.85 10*3/uLNormal0.10-1.20 [facility] HospitalComment on above:Performed By: #### CMPX, CDP #### [address] [place], [place] [phone] Supervisor Grading: BUZZ Mckenzieonocytes/100 WBC (Bld)10 %Normal3-12[facility] HospitalComment on above:Performed By: #### CMPX, CDP #### [address] [place], [place] 8782483 Supervisor Grading: Apolinar Lemus MDNeutrophil (Seg)65 %Jqrxwv49-46Eeawg [facility] HospitalComment on above:Performed By: #### CMPX, CDP #### [address] [place] [id number] Supervisor Grading: SVETLANA Mckenzie Automated0.0 per 100 WBCNormal0.0[facility] HospitalComment on above:Performed By: #### CMPX, CDP #### [address] [place] [address] Supervisor Grading: Nicanor Mckenzie mean volume (Bld) [Entitic vol]9.1 fL Normal8.1-13.5[facility] HospitalComment on above:Performed By: #### CMPX, CDP #### [address] [place] [address] Supervisor Grading: Corey Mckenzie (Bld) [#/Vol]305 10*3/oDSiypnq325-[address] [facility] HospitalComment on above:Performed By: #### CMPX, CDP #### [address] [place], [facility] Supervisor Grading: GEOVANY Mckenzie (Bld) [#/Vol]3.97 10*6/uLNormal3.95-5.11[facility] HospitalComment on above:Performed By: #### CMPX, CDP #### [address] [place], [facility]83 Supervisor Grading: RAZA Mckenzie (Bld) [#/Vol]8.8 10*3/uLNormal3.5-11.3MAkron Children's HospitalComment on above:Performed By: #### CMPX, CDP #### [address] [place], [place] [id number] Supervisor Grading: Mihaela Mckenzie Metabolic Panelon [id number] gap [Moles/Vol]10 mmol/L9 - 16 mmol/LBon [facility] HealthCalcium [Mass/Vol]8.5 mg/dLLow8.6 - 10.4 mg/dLBon [facility]ours [facility] HealthChloride [Moles/Vol]100 mmol/L98 - 107 mmol/LBon [facility] HealthCO2 [Moles/Vol]28 mmol/L20 - 31 mmol/LBon [place] [facility] HospitalCreatinine [Mass/Vol]0.7 mg/dL0.50 - 0.90 mg/dLBon [facility] HealthEst, Glom Filt Rate- PINFBon [place] HospitalComment on above: These results are not [...] secretion. Glucose [Mass/Vol]89 mg/dL74 - 99 mg/dLBon [facility] [place] [facility] HospitalPotassium [Moles/Vol]3.7 mmol/L3.7 - 5.3 mmol/LBon [place] [facility] HospitalSodium [Moles/Vol] 138 mmol/L136 - 145 mmol/LBon [facility] [place] [facility] HospitalUrea nitrogen [Mass/Vol]8 mg/dL8 - 23 mg/dLBon [facility] [place] [facility] HospitalUrea nitrogen/Creatinine [Mass ratio]11 mg/mg9 - 20Bon [facility] [place] [facility] HospitalBasic Metabolic Profon [id number] gap [Moles/Vol]10 mmol/LNormal9-16[facility] HospitalComment on above:Performed By: ###JOSE M GRAY #### [facility] [address] [place] [address] [place] [address] Supervisor Grading: Apolinar Lemus MDBUN/CRE Kwtsw63Uyjdxt3-95Zomct [facility] Comment on above:Performed By: ###JOSE M GRAY #### [facility] [address] [place] [address] Supervisor Grading: ANNITA Mckenziealcium [Mass/Vol]8.5 mg/dLLow8.6-10.4[facility] HospitalComment on above:Performed By: #### GRACIE, UAX #### [address] [place], [place] [phone] Supervisor Grading: ANNITA Mckenziehloride [Moles/Vol]100 mmol/CAhdhhr35-054OommiBellevue HospitalComment on above:Performed By: #### GRACIE, UAX #### [address] [place], [place] 36[address]83 Supervisor Grading: Apolinar Lemus MDCO2 [Moles/Vol]28 mmol/SOvmjjc07-88NhuzhBellevue HospitalComment on above:Performed By: #### GRACIE UAX #### [address] [place], [place] 2054183 Supervisor Grading: ANNITA Mckenziereatinine [Mass/Vol]0.7 mg/dLNormal0.50-0.90[facility] HospitalComment on above:Performed By: #### GRACIE, UAX #### [address] [place], [place] [address] Supervisor Grading: Apolinar Lemus MDGFR/1.73 sq M.predicted among non-blacks MDRD (S/P/Bld) [Vol rate/Area]mL/min/{1.73_m2}Normal>60[facility] HospitalComment on above:Result Comment: These results are [...] tubular secretion.Performed By: #### GRACIE, UAX #### [address] [place], [place] 011[address]83 Supervisor Grading: Apolinar Lemus MDGlucose [Mass/Vol]89 mg/uMCrhspo62-87Auvek [facility] HospitalComment on above:Performed By: #### UMBENEDICTOO, UAX #### [facility] [address] [place] [address] Dr. [place], [place] 987[address]83 Supervisor Grading: Apolinar Lemus MDPotassium [Moles/Vol]3.7 mmol/LNormal3.7-5.3MMagruder Hospital HospitalComment on above:Performed By: #### GRACIE, UAX #### [facility] [address] [place] [address] Dr. [place], [place] [phone] Supervisor Grading: Apolinar Lemus MDSodium [Moles/Vol]138 mmol/IXtygsv947-361KszsbBellevue HospitalComment on above:Performed By: #### GRACIE, UAX #### [address] [place], [place] 3654483 Supervisor Grading: Apolinar Lemus MDUrea nitrogen [Mass/Vol]8 mg/dLNormal8-23[facility] HospitalComment on above:Performed By: #### GRACIE, UAX #### [address] [place], [place] [id number] Supervisor Grading: ANNITA Mckenzie-Reactive Proteinon [id number] High sensitivity method [Mass/Vol]21.5 mg/LHigh0.0 - 5.0 mg/LBon [facility] CRP [Mass/Vol]21.5 mg/LHigh0.0-5.0[facility] HospitalComment on above: Performed By: #### GRACIE, UAX #### [address] [place] [address] Supervisor Grading: ANNITA MckenzieBC with Auto Differentialon [id number] (Bld) [#/Vol]0.06 10*3/uLBon [place] HospitalBasophils/100 WBC (Bld)1 %0 - 2 %[facility] HospitalEosinophils (Bld) [#/Vol]0.48 10*3/uLHighBon Secours Wilson Street HospitalEosinophils/100 WBC (Bld)6 %High1 - 4 %[facility] Erythrocyte distribution width (RBC) [Ratio]19.2 %High11.8 - 14.4 %Bon [place] HospitalHematocrit (Bld) [Volume fraction]35.7 %Low36.3 - 47.1 %[facility] CenterHemoglobin (Bld) [Mass/Vol]11.1 g/dLLow11.9 - 15.1 g/dLBon Secours [address] HospitalImmature granulocytes (Bld) [#/Vol][facility] [address] HospitalImmature granulocytes/100 WBC (Bld)0 %0Bon [place] HospitalInterpretation and review of laboratory resultsAbnormalBon [place] HospitalLymphocytes/100 WBC (Bld)16 %Low24 - 43 %[facility] CenterLymphocytes/100 WBC (Bld)1.18 %[facility] PatrickH (RBC) [Entitic mass]26.1 pg25.2 - 33.5 pgBon [facility] SystemHC (RBC) [Mass/Vol]31.1 g/dL28.4 - 34.8 g/dLBon SecOhioHealth Nelsonville Health CenterMCV (RBC) [Entitic vol]84 fL82.6 - 102.9 fLBon [facility] HealthMonocytes/100 WBC (Bld)7 %3 - 12 %[facility] CenterMonocytes/100 WBC (Bld)0.56 %[facility] CenterNeutrophils/100 WBC (Bld)70 %High36 - 65 %[facility] Nucleated RBC/100 WBC (Bld) [Ratio]0 %0.0 per 100 WBCSouthern [facility] Regional Medical Center Platelet mean volume (Bld) [Entitic vol]9.3 fL8.1 - 13.5 fLSouthern Virginia Regional Medical CenterPlatelets (Bld) [#/Vol]328 10*3/uLBon SecSavoy Medical Center HealthRBC (Bld) [#/Vol]4.25 10*6/uL3.95 - 5.11 m/uLBon [place] HospitalSegmented neutrophils/100 WBC (Bld)5.32 %Bon [facility] [place] [facility] HospitalWBC other (Bld) [#/Vol] 7.6Bon [place] HospitalBon [facility] [place] [facility] HospitalCB with Diffon 08-12-2024 Abs. Basophil0.06 k/uLNormal0.00-0.20[facility] HospitalComment on above: Performed By: #### TRAVIS, BMP, CDP #### [address] [place] [address] Supervisor Grading: MDAbs. MagalyImm.Granulocyte<0.45Mmcpbt7.00-0.30[facility] HospitalComment on above:Performed By: #### TRAVIS BMP, CDP #### [address] [place] [address] Supervisor Grading: MDAbs. MagalyNeutrophil (Seg)5.32 k/uLNormal1.50-8.10[facility] HospitalComment on above:Performed By: #### TRAVIS BMP, CDP #### [address] [place] [address] Supervisor Grading: Apolinar Lemus MDBasophils/100 WBC (Bld)1 %Normal0-2[facility] HospitalComment on above:Performed By: #### TRAVIS BMP, CDP #### [address] [place] [address] Supervisor Grading: Apolinar Lemus MDEosinophils (Bld) [#/Vol]0.48 10*3/uLHigh0.00-0.[address] [facility] HospitalComment on above:Performed By: #### TRAVIS BMP, CDP #### [address] [place] [address] Supervisor Grading: JADEN Mckenzieosinophils/100 WBC (Bld)6 %High1-4[facility] HospitalComment on above:Performed By: #### TRAVIS, BMP, CDP #### [address] [place], [place] [address] Supervisor Grading: Apolinar Lemus MDErythrocyte distribution width (RBC) [Ratio]19.2 % High11.8-14.4[facility] HospitalComment on above:Performed By: #### CRP, BMP, CDP #### [address] [place], [place] [address] Supervisor Grading: Apolinar Lemus MDHematocrit (Bld) [Volume fraction]35.7 %Low 36.3-47.1MMagruder Hospital HospitalComment on above:Performed By: #### TRAVIS, BMP, CDP #### [address] [place] [address] Supervisor Grading: Apolinar Lemus MDHemoglobin (Bld) [Mass/Vol]11.1 g/dLLow11.9-15.[address] [facility] HospitalComment on above:Performed By: #### TRAVIS BMP, CDP #### [address] [place], [place] [address] Supervisor Grading: Apolinar Lemus MDImmature granulocytes/100 WBC (Bld)0 %Nohgaf9Iwlhj [facility] HospitalComment on above:Performed By: #### TRAVIS, BMP, CDP #### [address] [place], [place] [address] Supervisor Grading: Apolinar Lemus MDLymphocytes (Bld) [#/Vol]1.18 10*3/uLNormal 1.10-3.70[facility] HospitalComment on above:Performed By: #### TRAVIS, BMP, CDP #### [address] [place] [id number] Supervisor Grading: Eden Mckenziemphocytes/100 WBC (Bld)16 %Icj87-78Ridth [facility] HospitalComment on above:Performed By: #### TRAVIS, BMP, CDP #### [address] [place] [address] Supervisor Grading: BUZZ MckenzieCH (RBC) [Entitic mass]26.1 feUezcna16.2-33.[address] [facility] HospitalComment on above:Performed By: #### TRAVIS, BMP, CDP #### [address] [place] [address] Supervisor Grading: BUZZ MckenzieCHC (RBC) [Mass/Vol]31.1 g/eOSqbhpb20.4-34.8[facility] HospitalComment on above:Performed By: #### TRAVIS BMP, CDP #### [address] [place] [address] Supervisor Grading: BUZZ MckenzieCV (RBC) [Entitic vol]84.0 uGTuhrgu65.6-102.9 [facility] HospitalComment on above:Performed By: #### TRAVIS BMP, CDP #### [address] [place] [address] Supervisor Grading: BUZZ Mckenzieonocytes (Bld) [#/Vol]0.56 10*3/uLNormal0.10-1.20 [facility] HospitalComment on above:Performed By: #### TRAVIS, BMP, CDP #### [address] [place] [address] Supervisor Grading: BUZZ Mckenzieonocytes/100 WBC (Bld)7 %Normal3-12[facility] HospitalComment on above:Performed By: #### TRAVIS, BMP, CDP #### [address] [place], [place] [phone] Supervisor Grading: Apolinar Lemus MDNeutrophil (Seg)70 %Udyz12-10FhdhnBellevue Hospital Comment on above:Performed By: #### CRP, BMP, CDP #### [facility] [address] [place] [address] [place] [address] Supervisor Grading: SVETLANA Mckenzie Automated0.0 per 100 WBCNormal0.0[facility] HospitalComment on above:Performed By: #### CRP, BMP, CDP #### [address] [place] [address] Supervisor Grading: Nicanor Mckenzie mean volume (Bld) [Entitic vol]9.3 fL Normal8.1-13.5[facility] HospitalComment on above:Performed By: #### TRAVIS, BMP, CDP #### [address] [place] [address] Supervisor Grading: Corey Mckenzie (Bld) [#/Vol]328 10*3/vRWmypuo838-217 [facility] HospitalComment on above:Performed By: #### TRAVIS, KYLE, CDP #### [address] [place] [address] Supervisor Grading: GEOVANY Mckenzie (Bld) [#/Vol]4.25 10*6/uLNormal3.95-5.11[facility] HospitalComment on above:Performed By: #### TRAVIS, BMP, CDP #### [address] [place] [address] Supervisor Grading: RAZA Mckenzie (Bld) [#/Vol]7.6 10*3/uLNormal3.5-11.3MAkron Children's HospitalComment on above:Performed By: #### TRAVIS, BMP, CDP #### [address] [place] [address] Supervisor Grading: Marce Mckenzie [facility] Informationon [id number] and review of laboratory resultsAbCuster Regional HospitalXR FOOT LEFT (MIN 3 VIEWS)on [id number] FOOT LEFT (MIN 3 VIEWS) EXAMINATION: THREE [...] Signed by: Carlo Song MD 08/12/24 Final resultNoMercy Health Allen HospitalXR FOOT RIGHT (2 VIEWS)on [id number] FOOT RIGHT (2 VIEWS)EXAMINATION: TWO XRAY VIEWS OF THE RIGHT FOOT 08/12/2024 11:24 am COMPARISON: None. HISTORY: ORDERING SYSTEM PROVIDED HISTORY: wound TECHNOLOGIST PROVIDED HISTORY: wound FINDINGS: No evidence of osteomyelitis or soft tissue gas. IMPRESSION: No osteomyelitis or soft tissue gas Interpreted by: Carlo Song MD Signed by: Carlo Song MD 08/12/24 Final resultNoPaulding County Hospital Foot - left 3 Viewson [id number] tissue wound at the tip of the [...] evidence of osteomyelitis or soft tissue gas [facility] CenterRadiology Study observation (narrative)[facility] CenterXR Foot - right 2 Viewson [id number] osteomyelitis or soft tissue gas [facility] CONSOLIDATEDEXAMINATION: TWO XRAY VIEWS OF THE RIGHT FOOT 08/12/2024 11:24 am COMPARISON: None. HISTORY: ORDERING SYSTEM PROVIDED HISTORY: wound TECHNOLOGIST PROVIDED HISTORY: wound FINDINGS: No evidence of osteomyelitis or soft tissue gas. [facility] Carlo Rios MD - 08/12/2024 EXAMINATION: TWO XRAY VIEWS OF THE RIGHT FOOT 08/12/2024 11:24 am COMPARISON: None. HISTORY: ORDERING SYSTEM PROVIDED HISTORY: wound TECHNOLOGIST PROVIDED HISTORY: wound FINDINGS: No evidence of osteomyelitis or soft tissue gas. IMPRESSION: No osteomyelitis or soft tissue gas [facility] Centeriology Study observation (narrative)[facility] Foot - right 2 ViewsOrdered By: Carlo Song on [id number] [facility] Work Phone: Cult, Bloodon [id number], BloodSpecimen Description .BLOOD Special Requests RIGHT AC 20ML Culture NO GROWTH 5 DAYS Report Status FINAL 08/11/2024[facility] CenterComment on above: Performed By: #### CMPX, CDP #### [facility] [address] [place] [address] [place] [address] Supervisor Grading: Lavonne Mckenzie,Bloodon [id number],BloodSpecimen Description .BLOOD Special Requests Larm Culture NO GROWTH 5 DAYS Report Status FINAL 08/11/2024[facility] CenterComment on above: Performed By: #### CMPX, CDP #### [facility] [address] [place] [address] [place] [address] Supervisor Grading: Mihaela Mckenzie Metab w/rfx MGon 14-60-1100Birww gap [Moles/Vol]8 mmol/LLow9-16[facility] HospitalComment on above:Performed By: #### BMPX, CDP #### [address] [place] [address] Supervisor Grading: Apolinar Lemus MDBUN/CRE Zalxp19Byviqq5-93Emxyf [facility] Comment on above:Performed By: #### BMPX, CDP #### [address] [place] [address] Supervisor Grading: ANNITA Mckenziealcium [Mass/Vol]8.2 mg/dLLow8.6-10.4MerCharlotte Hungerford HospitalComment on above:Performed By: #### BMPX, CDP #### [address] [place] [address] Supervisor Grading: ANNITA Mckenziehloride [Moles/Vol]109 mmol/FPwat43-387Nctee [facility] HospitalComment on above:Performed By: #### BMPX, CDP #### [address] [place] [address] Supervisor Grading: Apolinar Lemus MDCO2 [Moles/Vol]26 mmol/HGgcaun61-24Tyegd [facility] HospitalComment on above:Performed By: #### BMPX, CDP #### [address] [place] [address] Supervisor Grading: ANNITA Mckenziereatinine [Mass/Vol]0.6 mg/dLNormal0.50-0.90[facility] HospitalComment on above:Performed By: #### BMPX, CDP #### [address] [place], [place] [id number] Supervisor Grading: TOM Mckenzie/1.73 sq M.predicted among non-blacks MDRD (S/P/Bld) [Vol rate/Area]mL/min/{1.73_m2}Normal>60[facility] HospitalComment on above:Result Comment: These results are [...] tubular secretion.Performed By: #### BMPX, CDP #### [address] [place] [address] Supervisor Grading: Apolinar Lemus MDGlucose [Mass/Vol]96 mg/eGPivtaq45-21TbqygAkron Children's HospitalComment on above:Performed By: #### BMPX, CDP #### [address] [place], [facility] Supervisor Grading: ROJAS Mckenzieotassium [Moles/Vol]3.6 mmol/LLow3.7-5.3MAkron Children's HospitalComment on above:Performed By: #### BMPX, CDP #### [address] [place], [facility] Supervisor Grading: ADÁN Mckenzieodium [Moles/Vol]143 mmol/UAlfewn616-772ShhbfBellevue HospitalComment on above:Performed By: #### BMPX, CDP #### [address] [place], [facility] Supervisor Grading: Apolinar Lemus MDUrea nitrogen [Mass/Vol]9 mg/dLNormal8-23[facility] HospitalComment on above:Performed By: #### BMPX, CDP #### [address] [place] [address] Supervisor Grading: Apolinar Lemus MDVeterans Administration Medical Center Metabolic Panel w/ Reflex to MGon 08-10-2024 Anion gap [Moles/Vol]8 mmol/LLow9 - 16 mmol/LBon SecFranciscan HealthGrand Round Table HealthCalcium [Mass/Vol]8.2 mg/dLLow8.6 - 10.4 mg/dLBon SecFranciscan HealthGrand Round Table HealthChloride [Moles/Vol]109 mmol/LHigh98 - 107 mmol/LBon SecSav[facility] Center HealthCO2 [Moles/Vol] 26 mmol/L20 - 31 mmol/LBon SecOhioHealth Nelsonville Health CenterCreatinine [Mass/Vol]0.6 mg/dL 0.50 - 0.90 mg/dLBon Secours Clermont County HospitalGrand Round Table HealthEst, Glom Filt Rate- PINFBon [facility] CenterGrand Round Table [facility] Memorial HospitalComment on above: These results are not [...] secretion. Glucose [Mass/Vol]96 mg/dL74 - 99 mg/dLBon [facility] Phoenix2heuresavant Clermont County HospitalSensegInterpretation and review of laboratory resultsAbnormalBon [facility] CenterGrand Round Table [facility] HospitalPotassium [Moles/Vol]3.6 mmol/LLow3.7 - 5.3 mmol/LBon SecFranciscan HealthGrand Round Table [facility] Memorial HospitalSodium [Moles/Vol]143 mmol/L136 - 145 mmol/LBon [facility] RepRegenUrea nitrogen [Mass/Vol]9 mg/dL8 - 23 mg/dLBon [facility] [place] [facility] HospitalUrea nitrogen/Creatinine [Mass ratio]15 mg/mg9 - 20Bon [facility] HealthBon SecOhioHealth Nelsonville Health CenterCBC auto differentialon [id number] (Bld) [#/Vol]0.04 10*3/uLBon [facility] Phoenix2heuresavant Clermont County HospitalSensegErythrocyte distribution width (RBC) [Ratio]20 %High11.8 - 14.4 %Bon [place] [facility] HospitalImmature granulocytes (Bld) [#/Vol][facility] Interpretation and review of laboratory resultsAbnormalSouthern [facility] Center Lymphocytes/100 WBC (Bld)1.02 %LowBon [place] [facility] HospitalMonocytes/100 WBC (Bld)0.58 %[facility] CenterNeutrophils/100 WBC (Bld)66 %High36 - 65 %[facility] CenterNucleated RBC/100 WBC (Bld) [Ratio]0 %0.0 per 100 WBCSouthern Virginia Regional Medical CenterSegmented neutrophils/100 WBC (Bld)4.4 %[facility] CenterWBC other (Bld) [#/Vol]6.6Bon SecOhioHealth Nelsonville Health CenterBon [facility] CBC with Diffon [id number]. Basophil0.04 k/uLNormal0.00-0.20B[facility]vue HospitalComment on above:Performed By: #### BMPX, CDP #### [address] [place] [id number] Supervisor Grading: Cruz Mckenzie.Imm.Granulocyte<0.83Xeshnb7.00-0.30B[facility]vue HospitalComment on above:Performed By: #### BMPX, CDP #### [address] [place] [address] Supervisor Grading: Cruz Mckenzie.Neutrophil (Seg)4.40 k/uLNormal1.50-8.10B[facility]vue HospitalComment on above:Performed By: #### BMPX, CDP #### [address] [place], [place] [address] Supervisor Grading: Apolinar Lemus MDBasophils/100 WBC (Bld)1 %Normal0-2Bon [facility] [place] [facility] HospitalComment on above:Performed By: #### BMPX, CDP #### [address] [place] [id number] Supervisor Grading: Apolinar Lemus MDEosinophils (Bld) [#/Vol]0.49 10*3/uLHigh0.00-0.44 [facility] CenterComment on above:Performed By: #### BMPX, CDP #### [address] [place] [address] Supervisor Grading: Apolinar Lemus MDEosinophils/100 WBC (Bld)8 %High1-4Bon [facility] on above:Performed By: #### BMPX, CDP #### [address] [place], [place] [address] Supervisor Grading: Apolinar Lemus MDErythrocyte distribution width (RBC) [Ratio]20.0 % High11.8-14.4[facility] on above:Performed By: #### BMPX, CDP #### [address] [place] [address] Supervisor Grading: Apolinar Lemus MDHematocrit (Bld) [Volume fraction]31.9 %Low 36.3-47.1Bon [facility] on above:Performed By: #### BMPX, CDP #### [address] [place], [place] [id number] Supervisor Grading: Apolinar Lemus MDHemoglobin (Bld) [Mass/Vol]9.3 g/dLLow11.9-15.1Bon [facility] on above:Performed By: #### BMPX, CDP #### [address] [place], [facility] Supervisor Grading: Apolinar Lemus MDImmature granulocytes/100 WBC (Bld)0 %Tkftqn9Nxz [facility] on above:Performed By: #### BMPX, CDP #### [address] [place], [place] [id number] Supervisor Grading: Apolinar Lemus MDLymphocytes (Bld) [#/Vol]1.02 10*3/uLLow1.10-3.70 [facility] on above:Performed By: #### BMPX, CDP #### [address] [place] [address] Supervisor Grading: Apolinar Lemus MDLymphocytes/100 WBC (Bld)16 %Kon29-52Gce [facility] on above:Performed By: #### BMPX, CDP #### [address] [place], [facility]83 Supervisor Grading: BUZZ MckenzieCH (RBC) [Entitic mass]25.7 cqAwvssk74.2-33.5Bon [facility] on above:Performed By: #### BMPX, CDP #### [address] [place] [address] Supervisor Grading: ELLA MckenzieC (RBC) [Mass/Vol]29.2 g/xMPwfoaq54.4-34.8Bon [facility] on above:Performed By: #### BMPX, CDP #### [address] [place] [address] Supervisor Grading: BUZZ MckenzieCV (RBC) [Entitic vol]88.1 fXKbgoel95.6-102.9Bon [facility] on above:Performed By: #### BMPX, CDP #### [address] [place] [address] Supervisor Grading: BUZZ Mckenzieonocytes (Bld) [#/Vol]0.58 10*3/uLNormal0.10-1.20 [facility] on above:Performed By: #### BMPX, CDP #### [address] [place], [place] [address]83 Supervisor Grading: BUZZ Mckenzieonocytes/100 WBC (Bld)9 %Normal3-12Bon [facility] on above:Performed By: #### BMPX, CDP #### [facility] [address] [place] [address] Supervisor Grading: Brennen Mckenzie (Seg)66 %Ujjo56-34PflbhBellevue Hospital Comment on above:Performed By: #### BMPX, CDP #### [facility] [address] [place], [place] [id number] Supervisor Grading: SVETLANA Mckenzie Automated0.0 per 100 WBCNormal0.0Bellevue HospitalComment on above:Performed By: #### BMPX, CDP #### [address] [place], [place] [id number] Supervisor Grading: Nicanor Mckenzie mean volume (Bld) [Entitic vol]9.2 fL Normal8.1-13.5Bon [facility] [place] [facility] HospitalComment on above:Performed By: #### BMPX, CDP #### [address] [place] [address] Supervisor Grading: Corey Mckenzie (Bld) [#/Vol]258 10*3/dPEhorxj555-826Fnx [facility] [place] [facility] HospitalComselect specialty hospital-pontiac on above:Performed By: #### BMPX, CDP #### [address] [place] [address] Supervisor Grading: GEOVANY Mckenzie (Bld) [#/Vol]3.62 10*6/uLLow3.95-5.11Bon [facility] on above:Performed By: #### BMPX, CDP #### [address] [place] [address] Supervisor Grading: RAZA Mckenzie (Bld) [#/Vol]6.6 10*3/uLNormal3.5-11.3MercVeterans Administration Medical CenterComselect specialty hospital-pontiac on above:Performed By: #### BMPX, CDP #### [address] [place] [address] Supervisor Grading: Mihaela Mckenzie Metab w/rfx MGon 79-34-1162Ghfek gap [Moles/Vol]9 mmol/LNormal9-16MerCleveland Clinic HospitalComment on above:Performed By: #### CMPX, CDP #### [address] [place], [place] [id number] Supervisor Grading: Apolinar Lemus MDBUN/CRE Nzgtu58Xltkfs7-03Pgyzk [facility] Comment on above:Performed By: #### CMPX, CDP #### [address] [place] [address] Supervisor Grading: ANNITA Mckenziealcium [Mass/Vol]8.0 mg/dLLow8.6-10.4MerCleveland Clinic HospitalComment on above:Performed By: #### CMPX, CDP #### [address] [place] [address] Supervisor Grading: ANNITA Mckenziehloride [Moles/Vol]110 mmol/SOais51-407Dzeed [facility] HospitalComment on above:Performed By: #### CMPX, CDP #### [address] [place] [address] Supervisor Grading: Apolinar Lemus MDCO2 [Moles/Vol]23 mmol/WSgpzcq28-07Dyobx [facility] HospitalComment on above:Performed By: #### CMPX, CDP #### [address] [place], [place] [id number] Supervisor Grading: Apolinar Lemus MDCreatinine [Mass/Vol]0.6 mg/dLNormal0.50-0.90MerCleveland Clinic HospitalComment on above:Performed By: #### CMPX, CDP #### [address] [place] [address] Supervisor Grading: Apolinar Lemus MDGFR/1.73 sq M.predicted among non-blacks MDRD (S/P/Bld) [Vol rate/Area]mL/min/{1.73_m2}Normal>60B[facility]vue HospitalComment on above:Result Comment: These results are [...] tubular secretion.Performed By: #### CMPX, CDP #### [address] [place] [address] Supervisor Grading: Apolinar Lemus MDGlucose [Mass/Vol]103 mg/rBIfdf22-67Vvlte [facility] HospitalComment on above:Performed By: #### CMPX, CDP #### [address] [place], [facility]83 Supervisor Grading: ROJAS Mckenzieotassium [Moles/Vol]3.6 mmol/LLow3.7-5.3Mlicking memorial hospitaly [facility] HospitalComment on above:Performed By: #### CMPX, CDP #### [address] [place], [facility]83 Supervisor Grading: ADÁN Mckenzieodium [Moles/Vol]142 mmol/MFybhfg180-748FekogBellevue HospitalComment on above:Performed By: #### CMPX, CDP #### [address] [place] [address] Supervisor Grading: Apolinar Lemus MDUrea nitrogen [Mass/Vol]8 mg/dLNormal8-23B[facility]vue HospitalComment on above:Performed By: #### CMPX, CDP #### [address] [place] [address] Supervisor Grading: Apolinar Lemus MDVeterans Administration Medical Center Metabolic Panel w/ Reflex to MGon 08-09-2024 Anion gap [Moles/Vol]9 mmol/L9 - 16 mmol/LBon [facility] Bucmi HealthCalcium [Mass/Vol]8 mg/dLLow8.6 - 10.4 mg/dLBon [facility] Bucmi HealthChloride [Moles/Vol] 110 mmol/LHigh98 - 107 mmol/LBon [facility] Bucmi HealthCO2 [Moles/Vol]23 mmol/L20 - 31 mmol/LBon [facility] Bucmi [facility] HospitalCreatinine [Mass/Vol]0.6 mg/dL0.50 - 0.90 mg/dLBon [facility] Lezhin EntertainmentEst, Glom Filt Rate- PINFBon [facility] CenterGrand Round Table [facility] Comment on above: These results are [...] that affects renal tubular secretion. Glucose [Mass/Vol]103 mg/iOKzyo10 - 99 mg/dLBon [facility] PhoenixAppGate Network SecurityPotassium [Moles/Vol]3.6 mmol/LLow3.7 - 5.3 mmol/LBon [facility] Bucmi [facility] HospitalSodium [Moles/Vol]142 mmol/L136 - 145 mmol/LBon [facility] Forever RepRegenUrea nitrogen [Mass/Vol]8 mg/dL8 - 23 mg/dLBon [facility] Forever RepRegenUrea nitrogen/Creatinine [Mass ratio]13 mg/mg9 - 20Bon [facility] [place] [facility] HospitalCBC auto differentialon [id number] (Bld) [#/Vol][facility] Portable ZooErythrocyte distribution width (RBC) [Ratio]20 %High11.8 - 14.4 %[facility] [employer] Hemoglobin (Bld) [Mass/Vol]9 g/dLLow11.9 - 15.1 g/dLBon [facility] PhoenixAppGate Network Security Immature granulocytes (Bld) [#/Vol][facility] Health University HospitalAppGate Network SecurityInterpretation and review of laboratory resultsAbnormalBon [place] HospitalLymphocytes/100 WBC (Bld)0.77 %LowBon [place] HospitalMonocytes/100 WBC (Bld)0.62 %[facility] CenterNeutrophils/100 WBC (Bld)74 %High36 - 65 %[facility] Nucleated RBC/100 WBC (Bld) [Ratio]0 %0.0 per 100 WBCSouthern [facility] Regional Medical Center Segmented neutrophils/100 WBC (Bld)5.1 %[facility] CenterWBC other (Bld) [#/Vol]6.9[address] HospitalBon [facility] [place] [facility] HospitalCBC with Diffon 10-28-7968Pdrvwkgdo/100 WBC (Bld)0 %Normal0-2Bon [place] [facility] HospitalComment on above:Performed By: #### CMPX, CDP #### [address] [place] [address] Supervisor Grading: JADEN Mckenzieosinophils (Bld) [#/Vol]0.41 10*3/uLNormal 0.00-0.44Bon [facility] on above:Performed By: #### CMPX, CDP #### [address] [place] [address] Supervisor Grading: JADEN Mckenzieosinophils/100 WBC (Bld)6 %High1-4Bon [facility] on above:Performed By: #### CMPX, CDP #### [address] [place] [id number] Supervisor Grading: Apolinar Lemus MDHematocrit (Bld) [Volume fraction]29.7 %Low 36.3-47.1Bon [facility] on above:Performed By: #### CMPX, CDP #### [address] [place] [address] Supervisor Grading: Apolinar Sturtz, MDImmature granulocytes/100 WBC (Bld)0 %Nrxvkv2Juy [facility] on above:Performed By: #### CMPX, CDP #### [address] [place], [place] 3137683 Supervisor Grading: Apolinar Lemus MDLymphocytes/100 WBC (Bld)11 %Vuw58-69Ydp [facility] on above:Performed By: #### CMPX, CDP #### [address] [place], [place] [id number] Supervisor Grading: BUZZ MckenzieCH (RBC) [Entitic mass]26.5 baBefzfz35.2-33.5Bon [facility] on above:Performed By: #### CMPX, CDP #### [address] [place] [address] Supervisor Grading: ELLA MckenzieC (RBC) [Mass/Vol]30.3 g/wINxczsf69.4-34.8Bon [facility] on above:Performed By: #### CMPX, CDP #### [address] [place], [place] [id number] Supervisor Grading: BUZZ MckenzieCV (RBC) [Entitic vol]87.6 nXChlcjx09.6-102.9Bon [facility] on above:Performed By: #### CMPX, CDP #### [address] [place], [place] [id number] Supervisor Grading: BUZZ Mckenzieonocytes/100 WBC (Bld)9 %Normal3-12Bon [facility] on above:Performed By: #### CMPX, CDP #### [address] [place] [address] Supervisor Grading: ROJAS Mckenzielatelet mean volume (Bld) [Entitic vol]9.2 fL Normal8.1-13.5Bon [facility] [place] HospitalComment on above:Performed By: #### CMPX, CDP #### [address] [place], [facility]83 Supervisor Grading: Corey Mckenzie ([facility]) [#/Vol]252 10*3/oZHnskma766-179Unq [facility] [place] [facility] HospitalComselect specialty hospital-pontiac on above:Performed By: #### CMPX, CDP #### [address] [place], [facility]83 Supervisor Grading: GEOVANY Mckenzie ([facility]) [#/Vol]3.39 10*6/uLLow3.95-5.11Bon [facility] on above:Performed By: #### CMPX, CDP #### [address] [place], [place] [address] Supervisor Grading: Cruz Mckenzie. Basophil<0.66Degpkk2.00-0.20MerCleveland Clinic HospitalComment on above:Performed By: #### CMPX, CDP #### [address] [place] [address] Supervisor Grading: MDAbs. MagalyImm.Granulocyte<0.08Prvcgp8.00-0.30MerCharlotte Hungerford HospitalComment on above:Performed By: #### CMPX, CDP #### [address] [place], [facility]83 Supervisor Grading: Cruz Mckenzie.Neutrophil (Seg)5.10 k/uLNormal1.50-8.10MerCleveland Clinic HospitalComment on above:Performed By: #### CMPX, CDP #### [address] [place], [place] [phone] Supervisor Grading: Apolinar Lemus MDErythrocyte distribution width (RBC) [Ratio]20.0 % High11.8-14.4Bellevue HospitalComment on above:Performed By: #### CMPX, CDP #### [facility] [address] [place] [address] [place] [address] Supervisor Grading: Apolinar Lemus MDHemoglobin (Bld) [Mass/Vol]9.0 g/dLLow11.9-15.1 [facility] HospitalComment on above:Performed By: #### CMPX, CDP #### [facility] [address] [place] [address] [place] [address] Supervisor Grading: Apolinar Lemus MDLymphocytes (Bld) [#/Vol]0.77 10*3/uLLow1.10-3.70 [facility] HospitalComment on above:Performed By: #### CMPX, CDP #### [address] [place], [place] [id number] Supervisor Grading: BUZZ Mckenzieonocytes (Bld) [#/Vol]0.62 10*3/uLNormal0.10-1.20 [facility] HospitalComment on above:Performed By: #### CMPX, CDP #### [address] [place] [address] Supervisor Grading: Apolinar Lemus MDNeutrophil (Seg)74 %Hrmo81-75JafsaBellevue Hospital Comment on above:Performed By: #### CMPX, CDP #### [facility] [address] [place] [address] Dr. [place], [place] 6842483 Supervisor Grading: Apolinar Lemus MDNRBC Automated0.0 per 100 WBCNormal0.0B[facility]vue HospitalComment on above:Performed By: #### CMPX, CDP #### [address] [place], [place] 1686583 Supervisor Grading: Apolinar Lemus MDWBC (Bld) [#/Vol]6.9 10*3/uLNormal3.5-11.3MAkron Children's HospitalComment on above:Performed By: #### CMPX, CDP #### [facility] [address] [place] [address] Supervisor Grading: Apolinar Lemus MDHepatic Function Panelon [id number] [Mass/Vol]3.1 g/dLLow3.5 - 5.2 g/dLBon [facility] [place] [facility] HospitalAlbumin/Globulin [Mass ratio]1.3 {ratio}1.0 - 2.5Bon [place] HospitalALP [Catalytic activity/Vol]74 U/L35 - 104 U/LBon [facility] HealthALT [Catalytic activity/Vol]9 U/LLow10 - 35 U/LBon [facility] HealthAST [Catalytic activity/Vol]16 U/L10 - 35 U/LBon [facility] HealthBilirubin [Mass/Vol]mg/dL 0.00 - 1.20 mg/dLBon [place] HospitalBilirubin.direct [Mass/Vol]mg/dL0.00 - 0.30 mg/dLBon [place] HospitalBilirubin.indirect [Mass/Vol]Can not be calculated0.0 - 1.0 mg/dLBon [place] [facility] HospitalProtein [Mass/Vol]5.4 g/dLLow 6.6 - 8.7 g/dLBon [place] HospitalLiver Profileon 25-95-1344Yopzawd [Mass/Vol]3.1 g/dLLow3.5-5.2Mlicking memorial hospitaly [place] HospitalComment on above:Performed By: #### CMPX, CDP #### [facility] [address] [place] [address] Supervisor Grading: Apolinar Lemus, MDAlbumin/Glob Ratio1.1Zppyen7.0-2.5B[facility] HospitalComment on above:Performed By: #### CMPX, CDP #### [facility] [address] [place] [address] Supervisor Grading: Apolinar Lemus MDAlkaline Phos74 U/ISedeol67-651Qadnb [place] HospitalComment on above:Performed By: #### CMPX, CDP #### [address] [place], [place] [phone] Supervisor Grading: Apolinar Lemus MDALT [Catalytic activity/Vol]9 U/UEyt62-22Ikzjp [facility] HospitalComment on above:Performed By: #### CMPX, CDP #### [address] [place], [place] 8384583 Supervisor Grading: Apolinar Lemus MDAST [Catalytic activity/Vol]16 U/WGkttto93-66Kwvbm [facility] HospitalComment on above:Performed By: #### CMPX, CDP #### [address] [place], [place] 2841683 Supervisor Grading: Apolinar Lemus MDBilirubin [Mass/Vol]mg/dLNormal0.00-1.20[facility] HospitalComment on above:Performed By: #### CMPX, CDP #### [address] [place], [place] 9793983 Supervisor Grading: Apolinar Lemus MDBilirubin, IndirectCan not be calculatedNormal 0.0-1.0[facility] HospitalComment on above:Performed By: #### CMPX, CDP #### [address] [place] [address] Supervisor Grading: Shirlene Mckenzie.indirect [Mass/Vol]mg/dLNormal0.00-0.[address] HospitalComment on above:Performed By: #### CMPX, CDP #### [address] [place] [address] Supervisor Grading: Apolinar Lemus MDProtein [Mass/Vol]5.4 g/dLLow6.6-8.7[facility] HospitalComment on above:Performed By: #### CMPX, CDP #### [address] [place] [address] Supervisor Grading: Marce Mckenzie Panel Informationon [id number] and review of laboratory resultsAbnormInova Fair Oaks HospitalBasic Metab w/rfx MGon 02-38-1182Rkfri gap [Moles/Vol]8 mmol/LLow 9-16[facility] HospitalComment on above:Performed By: #### CMPX, CDP #### [address] [place], [place] [id number] Supervisor Grading: Apolinar Lemus MDBUN/CRE Pbiss41Wtmozl1-73Lowcu [facility] Comment on above:Performed By: #### CMPX, CDP #### [address] [place] [address] Supervisor Grading: ANNITA Mckenziealcium [Mass/Vol]7.8 mg/dLLow8.6-10.4[facility] HospitalComment on above:Performed By: #### CMPX, CDP #### [address] [place] [address] Supervisor Grading: ANNITA Mckenziehloride [Moles/Vol]109 mmol/QNsjr10-383Tzlbt [facility] HospitalComment on above:Performed By: #### CMPX, CDP #### [address] [place] [address] Supervisor Grading: Apolinar Lemus MDCO2 [Moles/Vol]25 mmol/CWcsubv39-24Esmtu [facility] HospitalComment on above:Performed By: #### CMPX, CDP #### [address] [place], [place] 1763383 Supervisor Grading: Apolinar Lemus MDCreatinine [Mass/Vol]0.8 mg/dLNormal0.50-0.90[facility] HospitalComment on above:Performed By: #### CMPX, CDP #### [address] [place] [address] Supervisor Grading: Apolinar Lemus MDGFR/1.73 sq M.predicted among non-blacks MDRD (S/P/Bld) [Vol rate/Area]86 mL/min/{1.73_m2}Normal>60[facility] Comment on above:Result Comment: These results [...] tubular secretion.Performed By: #### CMPX, CDP #### [address] [place], [facility]83 Supervisor Grading: Apolinar Lemus MDGlucose [Mass/Vol]131 mg/hUAedd72-75XnybwAkron Children's HospitalComment on above:Performed By: #### CMPX, CDP #### [address] [place], [facility]83 Supervisor Grading: ROJAS Mckenzieotassium [Moles/Vol]3.6 mmol/LLow3.7-5.3MAkron Children's HospitalComment on above:Performed By: #### CMPX, CDP #### [address] [place] [address] Supervisor Grading: Apolinar Lemus MDSodium [Moles/Vol]142 mmol/WAbvwai544-172OgerxBellevue HospitalComment on above:Performed By: #### CMPX, CDP #### [address] [place] [address] Supervisor Grading: Apolinar Lemus MDUrea nitrogen [Mass/Vol]11 mg/dLNormal8-23[facility] HospitalComment on above:Performed By: #### CMPX, CDP #### [facility] [address] [place] [address] Supervisor Grading: Shante Mckenziealan Metabolic Panel w/ Reflex to MGon 08-08-2024 Anion gap [Moles/Vol]8 mmol/LLow9 - 16 mmol/LBon SecOhioHealth Nelsonville Health CenterCalcium [Mass/Vol]7.8 mg/dLLow8.6 - 10.4 mg/dLBon [facility] [place] [facility] HospitalChloride [Moles/Vol]109 mmol/LHigh98 - 107 mmol/LBon [place] HospitalCO2 [Moles/Vol] 25 mmol/L20 - 31 mmol/LBon [place] HospitalCreatinine [Mass/Vol]0.8 mg/dL 0.50 - 0.90 mg/dLBon [place] [facility] HospitalEst, Glom Filt Rate86- PINFBon [place] HospitalComment on above: These results are not [...] that affects renal tubular secretion. Glucose [Mass/Vol]131 mg/vLFwmn72 - 99 mg/dLBon [facility] Interpretation and review of laboratory resultsAbnormalBon [facility] Potassium [Moles/Vol]3.6 mmol/LLow3.7 - 5.3 mmol/LBon [place] HospitalSodium [Moles/Vol]142 mmol/L136 - 145 mmol/LBon [place] HospitalUrea nitrogen [Mass/Vol]11 mg/dL8 - 23 mg/dLBon [place] HospitalUrea nitrogen/Creatinine [Mass ratio]14 mg/mg9 - 20Bon [facility] HospitalCBC auto differentialon [id number] (Bld) [#/Vol]0.05 10*3/uLBon [place] HospitalBasophils/100 WBC (Bld)1 %0 - 2 %Bon [place] [facility] HospitalEosinophils (Bld) [#/Vol]0.33 10*3/uLBon [facility] Hospitaly HealthEosinophils/100 WBC (Bld)4 %1 - 4 %[facility] Hospitaly HealthErythrocyte distribution width (RBC) [Ratio]19.9 % High11.8 - 14.4 %[facility] HealthHematocrit (Bld) [Volume fraction]31.2 %Low36.3 - 47.1 %[facility] Hospitaly HealthHemoglobin (Bld) [Mass/Vol]9.5 g/dLLow 11.9 - 15.1 g/dLBon Secours Wilson [address] HospitalImmature granulocytes (Bld) [#/Vol]0.05 10*3/uLBon [facility]ours Mercy HealthImmature granulocytes/100 WBC (Bld)1 %Hudh1Wtt [facility] Hospitaly HealthInterpretation and review of laboratory resultsAbnormalBon [facility] Hospitaly HealthLymphocytes/100 WBC (Bld)9 %Low24 - 43 %[facility] Hospitaly HealthLymphocytes/100 WBC (Bld)0.74 %LowBon Secours Middletown HospitalH (RBC) [Entitic mass]26.2 pg25.2 - 33.5 pgBon Secours Middletown HospitalHC (RBC) [Mass/Vol] 30.4 g/dL28.4 - 34.8 g/dLBon Secours Middletown HospitalV (RBC) [Entitic vol]86.2 fL 82.6 - 102.9 fLBon [facility]ours [facility] Hospitaly HealthMonocytes/100 WBC (Bld)9 %3 - 12 %[facility] Hospitaly HealthMonocytes/100 WBC (Bld)0.75 %[facility] Health Neutrophils/100 WBC (Bld)76 %High36 - 65 %[facility] Hospitaly HealthNucleated RBC/100 WBC (Bld) [Ratio]0 %0.0 per 100 WBCBon Secours Clermont County Hospitaly HealthPlatelet mean volume (Bld) [Entitic vol]8.8 fL8.1 - 13.5 fLBon Secours [facility]ermont [facility] Hospitaly HealthPlatelets (Bld) [#/Vol]277 10*3/uLBon [facility]ours [facility] Hospitaly HealthRBC (Bld) [#/Vol]3.62 10*6/uLLow 3.95 - 5.11 m/uLBon [facility] HospitalSegmented neutrophils/100 WBC (Bld)6.48 %Bon [facility] HospitalWBC other (Bld) [#/Vol]8.4Bon [facility] [place] [facility] HospitalBon [facility] HospitalCB with Diffon [id number]. Basophil0.05 k/uLNormal 0.00-0.20[facility] HospitalComment on above:Performed By: #### CMPX, CDP #### [address] [place], [place] [id number] Supervisor Grading: MDAbs. MagalyImm.Granulocyte0.05 k/uLNormal0.00-0.30[facility] HospitalComment on above:Performed By: #### CMPX, CDP #### [address] [place], [facility] Supervisor Grading: Cruz Mckenzie.Neutrophil (Seg)6.48 k/uLNormal1.50-8.10[facility] HospitalComment on above:Performed By: #### CMPX, CDP #### [address] [place], [place] [id number] Supervisor Grading: Apolinar Lemus MDBasophils/100 WBC (Bld)1 %Normal0-2[facility] HospitalComment on above:Performed By: #### CMPX, CDP #### [address] [place] [address] Supervisor Grading: Apolinar Lemus MDEosinophils (Bld) [#/Vol]0.33 10*3/uLNormal 0.00-0.44[facility] HospitalComment on above:Performed By: #### CMPX, CDP #### [address] [place], [place] [id number] Supervisor Grading: JADEN Mckenzieosinophils/100 WBC (Bld)4 %Normal1-4[facility] HospitalComment on above:Performed By: #### CMPX, CDP #### [address] [place] [address] Supervisor Grading: Apolinar Lemus MDErythrocyte distribution width (RBC) [Ratio]19.9 % High11.8-14.4[facility] HospitalComment on above:Performed By: #### CMPX, CDP #### [address] [place] [id number] Supervisor Grading: Apolinar Lemus MDHematocrit (Bld) [Volume fraction]31.2 %Low 36.3-47.1[facility] HospitalComment on above:Performed By: #### CMPX, CDP #### [address] [place] [id number] Supervisor Grading: Apolinar Lemus MDHemoglobin (Bld) [Mass/Vol]9.5 g/dLLow11.9-15.[address] [facility] HospitalComment on above:Performed By: #### CMPX, CDP #### [address] [place] [id number] Supervisor Grading: Apolinar Lemus MDImmature granulocytes/100 WBC (Bld)1 %Coks2IsjxgMercy Health St. [facility] HospitalComment on above:Performed By: #### CMPX, CDP #### [address] [place], [facility]83 Supervisor Grading: Apolinar Lemus MDLymphocytes (Bld) [#/Vol]0.74 10*3/uLLow1.10-3.[address] [facility] HospitalComment on above:Performed By: #### CMPX, CDP #### [address] [place], [place] [id number] Supervisor Grading: Eden Mckenziemphocytes/100 WBC (Bld)9 %Grt55-71YxyvaBellevue HospitalComment on above:Performed By: #### CMPX, CDP #### [address] [place] [address] Supervisor Grading: BUZZ MckenzieCH (RBC) [Entitic mass]26.2 zySdecdf78.2-33.5 [facility] HospitalComment on above:Performed By: #### CMPX, CDP #### [address] [place] [address] Supervisor Grading: BUZZ MckenzieCHC (RBC) [Mass/Vol]30.4 g/gICuyynr18.4-34.8[facility] HospitalComment on above:Performed By: #### CMPX, CDP #### [address] [place] [address] Supervisor Grading: BUZZ MckenzieCV (RBC) [Entitic vol]86.2 rKGjthcp24.6-102.9 [facility] HospitalComment on above:Performed By: #### CMPX, CDP #### [address] [place] [address] Supervisor Grading: BUZZ Mckenzieonocytes (Bld) [#/Vol]0.75 10*3/uLNormal0.10-1.20 [facility] HospitalComment on above:Performed By: #### CMPX, CDP #### [address] [place] [address] Supervisor Grading: BUZZ Mckenzieonocytes/100 WBC (Bld)9 %Normal3-12[facility] HospitalComment on above:Performed By: #### CMPX, CDP #### [address] [place], [place] [id number] Supervisor Grading: Apolinar Lemus MDNeutrophil (Seg)76 %Dztk66-93KsycqBellevue Hospital Comment on above:Performed By: #### CMPX, CDP #### [address] [place] [address] Supervisor Grading: SVTELANA Mckenzie Automated0.0 per 100 WBCNormal0.0[facility] HospitalComment on above:Performed By: #### CMPX, CDP #### [address] [place] [address] Supervisor Grading: Nicanor Mckenzie mean volume (Bld) [Entitic vol]8.8 fL Normal8.1-13.5[facility] HospitalComment on above:Performed By: #### CMPX, CDP #### [address] [place] [address] Supervisor Grading: Corey Mckenzie (Bld) [#/Vol]277 10*3/lRLilupt510-698 [facility] HospitalComment on above:Performed By: #### CMPX, CDP #### [address] [place] [address] Supervisor Grading: GEOVANY Mckenzie (Bld) [#/Vol]3.62 10*6/uLLow3.95-5.11[facility] HospitalComment on above:Performed By: #### CMPX, CDP #### [address] [place] [address] Supervisor Grading: RAZA Mckenzie (Bld) [#/Vol]8.4 10*3/uLNormal3.5-11.3MAkron Children's HospitalComment on above:Performed By: #### CMPX, CDP #### [address] [place], [place] [id number] Supervisor Grading: Lavon Mckenziec Metab w/rfx MGon [id number] gap [Moles/Vol]10 mmol/LNormal9-16[facility] HospitalComment on above:Performed By: #### BMPX, CDP #### [facility] [address] [place] [address] [place] [address] Supervisor Grading: Apolinar Lemus MDBUN/CRE Ydmez31Ljvmqi1-97M[facility] Comment on above:Performed By: #### BMPX, CDP #### [address] [place] [address] Supervisor Grading: ANNITA Mckenziealcium [Mass/Vol]7.5 mg/dLLow8.6-10.4[facility] HospitalComment on above:Performed By: #### BMPX, CDP #### [address] [place] [address] Supervisor Grading: ANNITA Mckenziehloride [Moles/Vol]106 mmol/GHvasbt49-102NjoszBellevue HospitalComment on above:Performed By: #### BMPX, CDP #### [address] [place] [address] Supervisor Grading: Apolinar Lemus MDCO2 [Moles/Vol]22 mmol/CYphbcj65-25LdygfBellevue HospitalComment on above:Performed By: #### BMPX, CDP #### [address] [place] [address] Supervisor Grading: ANNITA Mckenziereatinine [Mass/Vol]0.8 mg/dLNormal0.50-0.90[facility] HospitalComment on above:Performed By: #### BMPX, CDP #### [address] [place], [place] [id number] Supervisor Grading: Apolinar Lemus MDGFR/1.73 sq M.predicted among non-blacks MDRD (S/P/Bld) [Vol rate/Area]85 mL/min/{1.73_m2}Normal>60[facility] Comment on above:Result Comment: These results [...] tubular secretion.Performed By: #### BMPX, CDP #### [address] [place] [address] Supervisor Grading: Apolinar Lemus MDGlucose [Mass/Vol]124 mg/oBMpdh47-95HqiawAkron Children's HospitalComment on above:Performed By: #### KYLEX, CDP #### [address] [place] [address] Supervisor Grading: ROJAS Mckenzieotassium [Moles/Vol]3.7 mmol/LNormal3.7-5.3Mlicking memorial hospitaly [place] HospitalComment on above:Result Comment: Specimen hemolysis has exceeded the interference as defined by Anthony. Value may be falsely increased. Suggest recollection if clinically indicated.Performed By: #### KYLEX, CDP #### [address] [place] [address] Supervisor Grading: ADÁN Mckenzieodium [Moles/Vol]138 mmol/COopfwu250-082TbgwxBellevue HospitalComment on above:Performed By: #### KYLEX, CDP #### [address] [place], [place] [id number] Supervisor Grading: Apolinar Lemus MDUrea nitrogen [Mass/Vol]14 mg/dLNormal8-23[facility] HospitalComment on above:Performed By: #### KYLEX, CDP #### [address] [place] [address] Supervisor Grading: Apolinar Lemus MDBasi Metabolic Panel w/ Reflex to MGon 08-07-2024 Anion gap [Moles/Vol]10 mmol/L9 - 16 mmol/LBon [facility] HealthCalcium [Mass/Vol]7.5 mg/dLLow8.6 - 10.4 mg/dLBon [facility] [place] [facility] HospitalChloride [Moles/Vol]106 mmol/L98 - 107 mmol/LBon [facility] [place] [facility] HospitalCO2 [Moles/Vol]22 mmol/L20 - 31 mmol/LBon [facility] [place] [facility] HospitalCreatinine [Mass/Vol]0.8 mg/dL0.50 - 0.90 mg/dLBon [facility] [place] [facility] HospitalEst, Glom Filt Rate85- PINFBon [facility] [place] [facility] HospitalComment on above: These results are not [...] that affects renal tubular secretion. Glucose [Mass/Vol]124 mg/cVLphg67 - 99 mg/dLBon [facility] Interpretation and review of laboratory resultsAbnormalBon [facility] Potassium [Moles/Vol]3.7 mmol/L3.7 - 5.3 mmol/LBon [facility]red Hospital Daytonment on above:Specimen hemolysis has exceeded the interference as defined by Anthony. Value may be falsely increased. Suggest recollection if clinically indicated. Sodium [Moles/Vol]138 mmol/L136 - 145 mmol/LBon [facility] [place] HospitalUrea nitrogen [Mass/Vol]14 mg/dL8 - 23 mg/dLBon [facility] [place] [facility] HospitalUrea nitrogen/Creatinine [Mass ratio]18 mg/mg9 - 20Bon SecOhio[facility] Nelsonville Health CenterBon SecOhioHealth Nelsonville Health CenterCBC auto differentialon [id number] (Bld) [#/Vol] 0.07 10*3/uLBon [facility] [place] [facility] HospitalBasophils/100 WBC (Bld)1 %0 - 2 %Bon [facility] [place] [facility] HospitalEosinophils (Bld) [#/Vol]0.28 10*3/uLBon [facility] Eosinophils/100 WBC (Bld)4 %1 - 4 %Bon [facility] [place] [facility] HospitalErythrocyte distribution width (RBC) [Ratio]19.8 %High11.8 - 14.4 %[facility] Hematocrit (Bld) [Volume fraction]32.5 %Low36.3 - 47.1 %[facility] Hemoglobin (Bld) [Mass/Vol]10 g/dLLow11.9 - 15.1 g/dLBon [facility] Immature granulocytes (Bld) [#/Vol]0.03 10*3/uLBon [facility] [place] [facility] HospitalImmature granulocytes/100 WBC (Bld)0 %0[facility] CenterInterpretation and review of laboratory resultsAbnormalSouthern [facility] Regional Medical CenterLymphocytes/100 WBC (Bld)13 %Low24 - 43 %[facility] CenterLymphocytes/100 WBC (Bld)0.93 %LowPioneer Community Hospital of PatrickH (RBC) [Entitic mass]26.5 pg25.2 - 33.5 pgPioneer Community Hospital of PatrickHC (RBC) [Mass/Vol]30.8 g/dL28.4 - 34.8 g/dLBon [facility] [place] [facility] HospitalMCV (RBC) [Entitic vol]86 fL82.6 - 102.9 fLSouthern [facility] Medical Center Monocytes/100 WBC (Bld)9 %3 - 12 %[facility] CenterMonocytes/100 WBC (Bld)0.64 %[facility] CenterNeutrophils/100 WBC (Bld)72 %High36 - 65 %[facility] CenterNucleated RBC/100 WBC (Bld) [Ratio]0.3 %High0.0 per 100 WBC [facility] CenterPlatelet mean volume (Bld) [Entitic vol]9.1 fL8.1 - 13.5 fLSouthern Virginia Regional Medical CenterPlatelets (Bld) [#/Vol]283 10*3/uLBon [facility] [place] [facility] HospitalRBC (Bld) [#/Vol]3.78 10*6/uLLow3.95 - 5.11 m/uLBon [facility] Segmented neutrophils/100 WBC (Bld)5.07 %[facility] CenterWBC other (Bld) [#/Vol]7[facility] HealthBon [facility] with Diffon [id number]. Basophil0.07 k/uLNormal0.00-0.20MerCleveland Clinic HospitalComment on above:Performed By: #### BMPX, CDP #### [address] [place] [address] Supervisor Grading: Cruz Mckenzie.Imm.Granulocyte0.03 k/uLNormal0.00-0.30MerCleveland Clinic HospitalComment on above:Performed By: #### BMPX, CDP #### [address] [place] [address] Supervisor Grading: Cruz Mckenzie.Neutrophil (Seg)5.07 k/uLNormal1.50-8.10MerCleveland Clinic HospitalComment on above:Performed By: #### BMPX, CDP #### [address] [place], [place] [address] Supervisor Grading: Apolinar Lemus MDBasophils/100 WBC (Bld)1 %Normal0-2[facility] HospitalComment on above:Performed By: #### BMPX, CDP #### [address] [place], [place] [address] Supervisor Grading: Apolinar Lemus MDEosinophils (Bld) [#/Vol]0.28 10*3/uLNormal 0.00-0.44[facility] HospitalComment on above:Performed By: #### BMPX, CDP #### [address] [place], [place] [address] Supervisor Grading: JADEN Mckenzieosinophils/100 WBC (Bld)4 %Normal1-4MerCleveland Clinic HospitalComment on above:Performed By: #### BMPX, CDP #### [address] [place], [facility]83 Supervisor Grading: Hattie Mckenziemature granulocytes/100 WBC (Bld)0 %Gvcbmd6ZqacqBellevue HospitalComment on above:Performed By: #### BMPX, CDP #### [facility] [address] [place] [address] Dr. [place], [place] [id number] Supervisor Grading: Apolinar Lemus MDLymphocytes (Bld) [#/Vol]0.93 10*3/uLLow1.10-3.70 [facility] HospitalComment on above:Performed By: #### BMPX, CDP #### [address] [place], [place] [id number] Supervisor Grading: Apolinar Lemus MDLymphocytes/100 WBC (Bld)13 %Tso11-94VnhezBellevue HospitalComment on above:Performed By: #### BMPX, CDP #### [address] [place], [place] [id number] Supervisor Grading: BUZZ Mckenzieonocytes (Bld) [#/Vol]0.64 10*3/uLNormal0.10-1.20 [facility] HospitalComment on above:Performed By: #### BMPX, CDP #### [address] [place], [place] 4271583 Supervisor Grading: BUZZ Mckenzieonocytes/100 WBC (Bld)9 %Normal3-12[facility] HospitalComment on above:Performed By: #### BMPX, CDP #### [address] [place], [place] [id number] Supervisor Grading: Apolinar Lemus MDNeutrophil (Seg)72 %Yzun83-26BcsyzBellevue Hospital Comment on above:Performed By: #### BMPX, CDP #### [address] [place], [place] 9367783 Supervisor Grading: Apolinar Lemus MDErythrocyte distribution width (RBC) [Ratio]19.8 % High11.8-14.4[facility] HospitalComment on above:Performed By: #### BMPX, CDP #### [address] [place] [address] Supervisor Grading: Apolinar Lemus MDHematocrit (Bld) [Volume fraction]32.5 %Low 36.3-47.1MMagruder Hospital HospitalComment on above:Performed By: #### BMPX, CDP #### [address] [place] [address] Supervisor Grading: Apolinar Lemus MDHemoglobin (Bld) [Mass/Vol]10.0 g/dLLow11.9-15.1 [facility] HospitalComment on above:Performed By: #### BMPX, CDP #### [address] [place], [facility]83 Supervisor Grading: BUZZ MckenzieCH (RBC) [Entitic mass]26.5 eyPlmexw96.2-33.[address] [facility] HospitalComment on above:Performed By: #### BMPX, CDP #### [address] [place] [address] Supervisor Grading: ELLA MckenzieC (RBC) [Mass/Vol]30.8 g/pMLetvrf06.4-34.8[facility] HospitalComment on above:Performed By: #### BMPX, CDP #### [address] [place] [address] Supervisor Grading: BUZZ MckenzieCV (RBC) [Entitic vol]86.0 kTBuftvy49.6-102.[address] [facility] HospitalComment on above:Performed By: #### BMPX, CDP #### [address] [place] [address] Supervisor Grading: ANGEL MckenzieBC Automated0.3 per [address] HospitalComment on above:Performed By: #### BMPX, CDP #### [facility] [address] [place] [address] [place] [address] Supervisor Grading: Nicanor Mckenzie mean volume (Bld) [Entitic vol]9.1 fL Normal8.1-13.5[facility] HospitalComment on above:Performed By: #### BMPX, CDP #### [address] [place] [address] Supervisor Grading: Corey Mckenzie (Bld) [#/Vol]283 10*3/oFScbwnc795-[address] [facility] HospitalComment on above:Performed By: #### BMPX, CDP #### [address] [place] [address] Supervisor Grading: GEOVANY Mckenzie (Bld) [#/Vol]3.78 10*6/uLLow3.95-5.11[facility] HospitalComment on above:Performed By: #### BMPX, CDP #### [address] [place] [address] Supervisor Grading: RAZA Mckenzie (Bld) [#/Vol]7.0 10*3/uLNormal3.5-11.3MMagruder Hospital HospitalComment on above:Performed By: #### BMPX, CDP #### [address] [place] [address] Supervisor Grading: LEANDRO Mckenzie 12 Lead [id number] Myzy90LWVEdi [facility] HealthP Czbt76tlooxebGfh [facility] HealthP-R Kvxndqtl086 msBon [facility] HealthQ-T Iayfscle224 msBon [facility] HealthQRS Uunexxot53 ms [facility] HealthQTc Calculation (Ara)402 msBon [facility] HealthR Lonaconing-17degreesUva Health University Hospital2heuresav[address] HospitalT Psii11laxcfrcLewSouthern [facility] Center Ventricular Vnsr08AWTGvk [facility] Consider ACUTE CORONARY SYNDROME (ACS) Sinus bradycardia Possible Left atrial enlargement Nonspecific ST abnormality ECG interpretation of ACS is based on presence of symptoms and T-wave inversion in Septal leads Abnormal ECG When compared with ECG of 02-Jan-2024 16:02, T wave inversion no longer evident in Inferior leads T wave inversion less evident in Anterior leads Confirmed by Josef Brooks ([id number]) on 08/07/2024 8:24:00 AMChildren's Healthcare of Atlanta EglestonJosef venegas MD - 08/07/2024 Consider ACUTE CORONARY [...] in Anterior leads Confirmed by Josef Brooks ([id number]) on 08/07/2024 8:24:00 AM [facility] University HospitalAppGate Network SecurityUva Health University HospitalAppGate Network SecurityVascular duplex lower extremity arteries bilateralOrdered By: Timothy John on 30-62-4448Hbhq surface area Derived from formula1.56 m2[facility] [employer] Work Phone: Left BROCK mid PSV24.8 cm/sBon [employer] Work Phone: Left MANAGER CONTROL prox PSV91.5 cm/sBon [employer] Work Phone: Left peroneal mid PSV16 cm/sBon [employer] Work Phone: Left PFA prox PSV31.6 cm/sBon [employer] Work Phone: Left AIR TRAFFIC SUPERVISOR mid PSV28.1 cm/sBon [employer] Work Phone: Left SFA dist PSV48.2 cm/[employer] Work Phone: Right BROCK mid PSV29.7 cm/sBon [facility] [employer] Work Phone: [phone] MANAGER CONTROL dist PSV79.8 cm/sBon [facility] [employer] Work Phone: [phone] MANAGER CONTROL prox PSV40.3 cm/sBon [facility] Work Phone: [phone] peronal mid PSV19.9 cm/sBon [facility] [employer] Work Phone: [phone] Pop A dist PSV39.6 cm/sBon [facility] [employer] Work Phone: [phone] Pop A prox PSV24.8 cm/sBon [facility] [employer] Work Phone: Right Pop A prox otilio ratio0.85Bon Sec[employer] Work Phone: Right AIR TRAFFIC SUPERVISOR mid PSV24.8 cm/sBon [facility] [employer] Work Phone: Right SFA dist PSV29.2 cm/sBon [facility] [employer] Work Phone: Right SFA dist otilio ratio0.93Bon SecApp[employer] Work Phone: Right SFA mid PSV31.4 cm/sBon [facility] [employer] Work Phone: Bon SecApp[employer] Work Phone: Vascular duplex lower extremity arteries bilateralon [id number] right superficial femoral artery is occluded with [...] difficult to visualize the proximal and distal anastomosis.[facility] CV CPACSRadiology Study observation (narrative)[facility] CenterCBC auto differentialon [id number] (Bld) [#/Vol]0.08 10*3/uLBon [facility] [place] [facility] HospitalBasophils/100 WBC (Bld)1 %0 - 2 %[facility] CenterEosinophils (Bld) [#/Vol]0.39 10*3/uLBon [facility] Eosinophils/100 WBC (Bld)5 %High1 - 4 %[facility] CenterErythrocyte distribution width (RBC) [Ratio]19.4 %High11.8 - 14.4 %[facility] Hematocrit (Bld) [Volume fraction]32.9 %Low36.3 - 47.1 %[facility] Hemoglobin (Bld) [Mass/Vol]10.3 g/dLLow11.9 - 15.1 g/dLBon [facility] Immature granulocytes (Bld) [#/Vol]0.04 10*3/uLBon [facility] [place] [facility] HospitalImmature granulocytes/100 WBC (Bld)1 %Dsmp2WhsSouthern Virginia Regional Medical CenterInterpretation and review of laboratory resultsAbnormalSouthern Virginia Regional Medical CenterLymphocytes/100 WBC (Bld)12 %Low24 - 43 %[facility] CenterLymphocytes/100 WBC (Bld)0.94 %Low [facility] PatrickH (RBC) [Entitic mass]26.6 pg25.2 - 33.5 pgPioneer Community Hospital of PatrickHC (RBC) [Mass/Vol]31.3 g/dL28.4 - 34.8 g/dLBon [facility] [place] [facility] HospitalMCV (RBC) [Entitic vol]85 fL82.6 - 102.9 fLSouthern [facility] Regional Medical Center Monocytes/100 WBC (Bld)11 %3 - 12 %[facility] CenterMonocytes/100 WBC (Bld)0.83 %[facility] CenterNeutrophils/100 WBC (Bld)70 %High36 - 65 %[facility] CenterNucleated RBC/100 WBC (Bld) [Ratio]0.3 %High0.0 per 100 WBC [facility] CenterPlatelet mean volume (Bld) [Entitic vol]9.2 fL8.1 - 13.5 fLSouthern Virginia Regional Medical CenterPlatelets (Bld) [#/Vol]296 10*3/uLBon [facility] [place] [facility] HospitalRBC (Bld) [#/Vol]3.87 10*6/uLLow3.95 - 5.11 m/uLSouthern [facility] Regional Medical Center Segmented neutrophils/100 WBC (Bld)5.66 %[facility] CenterWBC other (Bld) [#/Vol]7.9Bon [facility] HospitalCBC with Diffon [id number]. Basophil0.08 k/uLNormal0.00-0.20MerCleveland Clinic HospitalComment on above:Performed By: #### CMPX, CDP #### [address] [place] [address] Supervisor Grading: Cruz Mckenzie.Imm.Granulocyte0.04 k/uLNormal0.00-0.30[facility] HospitalComment on above:Performed By: #### CMPX, CDP #### [address] [place] [id number] Supervisor Grading: Cruz Mckenzie.Neutrophil (Seg)5.66 k/uLNormal1.50-8.10[facility] HospitalComment on above:Performed By: #### CMPX, CDP #### [address] [place] [address] Supervisor Grading: Apolinar Lemus MDBasophils/100 WBC (Bld)1 %Normal0-2[facility] HospitalComment on above:Performed By: #### CMPX, CDP #### [address] [place] [address] Supervisor Grading: Apolinar Lemus MDEosinophils (Bld) [#/Vol]0.39 10*3/uLNormal 0.00-0.44[facility] HospitalComment on above:Performed By: #### CMPX, CDP #### [address] [place] [address] Supervisor Grading: Apolinar Lemus MDEosinophils/100 WBC (Bld)5 %High1-4MerCleveland Clinic HospitalComment on above:Performed By: #### CMPX, CDP #### [address] [place], [place] [address] Supervisor Grading: Apolinar Lemus MDErythrocyte distribution width (RBC) [Ratio]19.4 % High11.8-14.4[facility] HospitalComment on above:Performed By: #### CMPX, CDP #### [address] [place] [address] Supervisor Grading: Apolinar Lemus MDHematocrit (Bld) [Volume fraction]32.9 %Low 36.3-47.1MercTriHealth Bet[facility] Hospital HospitalComment on above:Performed By: #### CMPX, CDP #### [address] [place] [id number] Supervisor Grading: Apolinar Lemus MDHemoglobin (Bld) [Mass/Vol]10.3 g/dLLow11.9-15.[address] [facility] HospitalComment on above:Performed By: #### CMPX, CDP #### [address] [place] [address] Supervisor Grading: Apolinar Lemus MDImmature granulocytes/100 WBC (Bld)1 %Vyfu4ArnaoMercy Health St. [facility] Hospital HospitalComment on above:Performed By: #### CMPX, CDP #### [address] [place] [address] Supervisor Grading: Apolinar Lemus MDLymphocytes (Bld) [#/Vol]0.94 10*3/uLLow1.10-3.[address] [facility] HospitalComment on above:Performed By: #### CMPX, CDP #### [address] [place] [address] Supervisor Grading: Eden Mckenziemphocytes/100 WBC (Bld)12 %Fcv37-06Cnfoh Tiffin HospitalComment on above:Performed By: #### CMPX, CDP #### [address] [place] [address] Supervisor Grading: BUZZ MckenzieCH (RBC) [Entitic mass]26.6 noOihzrv41.2-33.[address] [facility] HospitalComment on above:Performed By: #### CMPX, CDP #### [address] [place] [address] Supervisor Grading: ELLA MckenzieC (RBC) [Mass/Vol]31.3 g/yBWmzwlw00.4-34.8[facility] HospitalComment on above:Performed By: #### CMPX, CDP #### [address] [place] [address] Supervisor Grading: BUZZ MckenzieCV (RBC) [Entitic vol]85.0 bDFyxxiq38.6-102.[address] [facility] HospitalComment on above:Performed By: #### CMPX, CDP #### [address] [place] [address] Supervisor Grading: BUZZ Mckenzieonocytes (Bld) [#/Vol]0.83 10*3/uLNormal0.10-1.20 [facility] HospitalComment on above:Performed By: #### CMPX, CDP #### [facility] [address] [place] [address] Dr[address] [place], [place] [id number] Supervisor Grading: BUZZ Mckenzieonocytes/100 WBC (Bld)11 %Normal3-12[facility]vue HospitalComment on above:Performed By: #### CMPX, CDP #### [facility] [address] [place] [address] [place] [address] Supervisor Grading: Yina Mckenzieophil (Seg)70 %Iuty96-96RpirwBellevue Hospital Comment on above:Performed By: #### CMPX, CDP #### [address] [place], [place] [phone] Supervisor Grading: Apolinar Lemus MDNRBC Automated0.3 per 100 WBCHigh0.0Bellevue HospitalComment on above:Performed By: #### CMPX, CDP #### [address] [place], [place] [phone] (109 Supervisor Grading: ROJAS Mckenzielatelet mean volume (Bld) [Entitic vol]9.2 fL Normal8.1-13.5B[facility]vue HospitalComment on above:Performed By: #### CMPX, CDP #### [facility] [address] [place] [address] [place] [address] Supervisor Grading: Apolinar Lemus MDPlatelets (Bld) [#/Vol]296 10*3/xFFoajtp726-262 [facility] HospitalComment on above:Performed By: #### CMPX, CDP #### [address] [place], [place] [phone] Supervisor Grading: Apolinar Lemus MDRBC (Bld) [#/Vol]3.87 10*6/uLLow3.95-5.11[facility] HospitalComment on above:Performed By: #### CMPX, CDP #### [facility] [address] [place], [place] [id number] Supervisor Grading: RAZA Mckenzie (d) [#/Vol]7.9 10*3/uLNormal3.5-11.3[facility]ger[facility] HospitalComment on above:Performed By: #### CMPX, CDP #### [facility] [address] [place] [address] Supervisor Grading: Apolinar Lemus MDCT CHEST ABDOMEN PELVIS W CONTRASTon 32-70-2971RG CHEST ABDOMEN PELVIS W CONTRASTEXAMINATION: CT OF [...] plaque along the aorta and its branches. 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 Aortic graft [...] by: Arben Villalpando MD 08/06/24 Final resultNormalMercy Danbury Hospital Chest and Abdomen and Pelvis W [...] and L3. 14. Multilevel vacuum disc phenomena. [facility] RIS CONSOLIDATEDEXAMINATION: CT OF [...] plaque along the aorta and its branches. 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 Aortic graft [...] pars defects noted at L1 and L2. [facility] Arben George MD - [...] plaque along the aorta and its branches. 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 Aortic graft [...] and L3. 14. Multilevel vacuum disc phenomena. [facility] CenterRadiology Study observation (narrative)[facility] Chest and Abdomen and Pelvis W contrast IVOrdered By: Arben Villalpando on 30-21-2389Rmy [facility] Work Phone: CT FOOT LEFT W CONTRASTon [id number] FOOT LEFT W CONTRASTEXAMINATION: CT OF THE [...] tissue gas. No focal intramuscular abnormality. Joint: Khde-js-gegfrjvw tricompartmental osteoarthritis of the knee joint. No [...] by: Geovanny Melo MD 08/06/24 Final resultNormalMerSaint Mary's Hospital FOOT RIGHT W CONTRASTon 80-74-6746KM FOOT RIGHT W CONTRASTEXAMINATION: CT OF THE [...] tissue gas. No focal intramuscular abnormality. Joint: Xule-xy-jrnamcla tricompartmental osteoarthritis of the knee joint. No [...] by: Geovanny Melo MD 08/06/24 Final resultNormalMerSaint Mary's Hospital Foot - left W contrast Atiya 08-06-2024 Radiology Study observation (narrative)[facility] Foot - right W contrast Atiya 28-14-8978Fjlvcvzix Study observation (narrative)[facility] HEAD WO CONTRASTon 66-51-2349BL HEAD WO CONTRASTEXAMINATION: CT OF THE HEAD [...] by: Georgiana Peng MD 08/06/24 Final resultNormalMercy Danbury Hospital Head WO contraston 20-63-8597Mk acute intracranial abnormality or calvarial fracture. [facility] RIS CONSOLIDATEDEXAMINATION: CT OF [...] the left forehead. No acute calvarial fracture. [facility] Georgiana Aguilar MD - [...] No acute intracranial abnormality or calvarial fracture. [facility] RepRegenRadiology Study observation (narrative)[facility] Fourteen IP [facility] Head WO contrastOrdered By: Georgiana Peng on 51-86-8802Wiu [facility] [employer] Work Phone: CT Lower leg - left W contrast Atiya 08-06-2024 Radiology Study observation (narrative)[facility] Lower leg - right W contrast Atiya 13-58-9113Cdiijgkga Study observation (narrative)[facility] TIBIA FIBULA LEFT W CONTRASTon 21-50-3581DA TIBIA FIBULA LEFT W CONTRASTEXAMINATION: CT OF [...] tissue gas. No focal intramuscular abnormality. Joint: Xxek-xt-bnpjoujp tricompartmental osteoarthritis of the knee joint. No [...] by: Geovanny Melo MD 08/06/24 Final resultNormalMercy Danbury Hospital TIBIA FIBULA RIGHT W CONTRASTon 00-08-8179GE TIBIA FIBULA RIGHT W CONTRASTEXAMINATION: CT OF [...] tissue gas. No focal intramuscular abnormality. Joint: Fgmy-lw-dnydyvdi tricompartmental osteoarthritis of the knee joint. No [...] Signed by: Geovanny Melo MD 08/06/24 Final resultNormalBellevue HospitalComp Metabolic Pr/rfx MGon 08-06-2024 Albumin [Mass/Vol]3.4 g/dLLow3.5-5.2MAkron Children's HospitalComment on above: Performed By: #### CMPX, CDP #### [address] [place] [phone] Supervisor Grading: Apolinar Lemus MDAlbumin/Glob Ratio1.6Htkbsl6.0-2.5Bellevue HospitalComment on above:Performed By: #### CMPX, CDP #### [address] [place] [phone] Supervisor Grading: Germania Mckenziekaline Phos95 U/IAxsxyp25-440WqakgBellevue HospitalComment on above:Performed By: #### CMPX, CDP #### [address] [place] [address] Supervisor Grading: Apolinar Lemus MDALT [Catalytic activity/Vol]11 U/DOzjodz70-78EaedoBellevue HospitalComment on above:Performed By: #### CMPX, CDP #### [address] [place], [place] [phone] Supervisor Grading: Apolinar Lemus MDAnion gap [Moles/Vol]9 mmol/LNormal9-16B[facility]vue HospitalComment on above:Performed By: #### CMPX, CDP #### [address] [place], [place] 6[address]883 Supervisor Grading: Apolinar Lemus MDAST [Catalytic activity/Vol]21 U/TRboyzy35-05TkwbpBellevue HospitalComment on above:Performed By: #### CMPX, CDP #### [address] [place], [place] [phone] Supervisor Grading: Apolinar Lemus MDBilirubin [Mass/Vol]mg/dLNormal0.00-1.20B[facility]vue HospitalComment on above:Performed By: #### CMPX, CDP #### [address] [place], [place] 4588783 Supervisor Grading: Apolinar Lemus MDBUN/CRE Whdft09Dobwft9-29Ajbvd [facility] Comment on above:Performed By: #### CMPX, CDP #### [address] [place], [place] 0746683 Supervisor Grading: Apolinar Lemus MDCalcium [Mass/Vol]8.2 mg/dLLow8.6-10.4B[facility]vue HospitalComment on above:Performed By: #### CMPX, CDP #### [address] [place] [address] Supervisor Grading: ANNITA Mckenziehloride [Moles/Vol]102 mmol/CSokboy80-910DmnezBellevue HospitalComment on above:Performed By: #### CMPX, CDP #### [address] [place], [place] 9227483 Supervisor Grading: Apolinar Lemus MDCO2 [Moles/Vol]23 mmol/UYgbjme06-03YhqomBellevue HospitalComment on above:Performed By: #### CMPX, CDP #### [address] [place] [address] Supervisor Grading: ANNITA Mckenziereatinine [Mass/Vol]1.0 mg/dLHigh0.50-0.90Bellevue HospitalComment on above:Performed By: #### CMPX, CDP #### [address] [place] [address] Supervisor Grading: Apolinar Lemus MDGFR/1.73 sq M.predicted among non-blacks MDRD (S/P/Bld) [Vol rate/Area]67 mL/min/{1.73_m2}Normal>60[facility] Comment on above:Result Comment: These results [...] tubular secretion.Performed By: #### CMPX, CDP #### [address] [place] [address] Supervisor Grading: Apolinar Lemus MDGlucose [Mass/Vol]141 mg/xYCvyo41-35XlwghAkron Children's HospitalComment on above:Performed By: #### CMPX, CDP #### [address] [place] [address] Supervisor Grading: ROJAS Mckenzieotassium [Moles/Vol]3.6 mmol/LLow3.7-5.3MAkron Children's HospitalComment on above:Performed By: #### CMPX, CDP #### [address] [place] [address] Supervisor Grading: Apolinar Lemus MDProtein [Mass/Vol]5.8 g/dLLow6.6-8.7Bellevue HospitalComment on above:Performed By: #### CMPX, CDP #### [facility] [address] [place] [address] [place] [address] Supervisor Grading: ADÁN Mckenzieodium [Moles/Vol]134 mmol/KArv919-578QxlopBellevue HospitalComment on above:Performed By: #### CMPX, CDP #### [facility] [address] [place] [address] [place] [address] Supervisor Grading: Apolinar Lemus MDUrea nitrogen [Mass/Vol]16 mg/dLNormal8-23B[facility]vue HospitalComment on above:Performed By: #### CMPX, CDP #### [address] [place] [address] Supervisor Grading: ANNITA Mckenzieomprehensive Metabolic Panel w/ Reflex to MGon 32-09-7859Ksnyyud [Mass/Vol]3.4 g/dLLow3.5 - 5.2 g/dLBon [facility] Albumin/Globulin [Mass ratio]1.4 {ratio}1.0 - 2.5Bon [facility] HealthALP [Catalytic activity/Vol]95 U/L35 - 104 U/LBon [facility] HealthALT [Catalytic activity/Vol]11 U/L10 - 35 U/LBon Secours [facility] Hospitaly HealthAnion gap [Moles/Vol]9 mmol/L9 - 16 mmol/LBon Secours [facility] Hospitaly HealthAST [Catalytic activity/Vol]21 U/L10 - 35 U/LBon Secours [facility] Hospitaly HealthBilirubin [Mass/Vol]mg/dL0.00 - 1.20 mg/dLBon Secours [facility] Hospitaly HealthCalcium [Mass/Vol]8.2 mg/dLLow8.6 - 10.4 mg/dLBon Secours [facility] Hospitaly HealthChloride [Moles/Vol]102 mmol/L98 - 107 mmol/LBon Secours [facility] Hospitaly HealthCO2 [Moles/Vol]23 mmol/L20 - 31 mmol/LBon Secours Mercy HealthCreatinine [Mass/Vol]1.0 mg/dLHigh0.50 - 0.90 mg/dLBon [facility] HospitalEst, Glom Filt Rate67- PINFBon [facility] HospitalComment on above: These results are not [...] that affects renal tubular secretion. Glucose [Mass/Vol]141 mg/zNMajd48 - 99 mg/dLBon [facility] Interpretation and review of laboratory resultsAbnormalBon [facility] Potassium [Moles/Vol]3.6 mmol/LLow3.7 - 5.3 mmol/LBon [facility] Protein [Mass/Vol]5.8 g/dLLow6.6 - 8.7 g/dLBon [facility] HospitalSodium [Moles/Vol]134 mmol/SPfg247 - 145 mmol/LBon [facility] HospitalUrea nitrogen [Mass/Vol]16 mg/dL8 - 23 mg/dLBon [facility] HospitalUrea nitrogen/Creatinine [Mass ratio]16 mg/mg9 - 20Bon [facility] HospitalGram Stainon 69-90-6619Ckultkzpmvy observation Gram stain Nom (Unsp spec)Specimen Description .WOUND Special Requests Site: Foot Direct Exam < 10 EPITHELIAL CELLS/LPF <10 NEUTROPHILS/LPF MIXED BACTERIAL MORPHOTYPES SEEN ON GRAM STAIN. Report Status FINAL 5AbnormalBellevue HospitalComment on above: Performed By: #### GRACIE UAX #### [facility] [address] [place] [address] Supervisor Grading: Apolinar Lemus MDHemoglobin A1Con 86-24-4855Raoeoce glucose Estimated from glycated hemoglobin (Bld) [Mass/Vol]160 mg/dLBon [facility] HospitalComment on above:The ADA and AACC recommend providing the estimated average glucose result to permit better patient understanding of their HBA1c result. HbA1c (Bld) [Mass fraction]7.2 %High4.0 - 6.0 %[facility] Interpretation and review of laboratory resultsAbnormCJW Medical CenterGlucose [Mass/Vol]160 mg/dLNoMercy Health Allen Hospital Comment on above:Result Comment: The ADA and AACC recommend providing the estimated average glucose result to permit better patient understanding of their HBA1c result.Performed By: #### GLYHGB #### [facility] [employer] [address] [place] [address] Supervisor Grading: Mark Liriano MDHbA1c (Bld) [Mass fraction]7.2 %High4.0-6.0Bellevue HospitalComment on above:Performed By: #### GLYHGB #### [facility] [address] [place] [address] Supervisor Grading: Mark Liriano MDLactate, Sepsison 60-08-7511Zpvplfg (BldV) [Moles/Vol]0.7 mmol/L0.5 - 1.9 mmol/LBon [facility] Regional HospitalLactic Acid, Sepsis0.7 mmol/LNormal0.5-1.9B[facility]vue HospitalComment on above:Performed By: #### CMPX, CDP #### [facility] [address] [place] [address] Supervisor Grading: Apolinar Lemus MDNo Panel Informationon 80-78-9979WO right tibia/fibula and foot: 1. No acute [...] tissue gas. No focal intramuscular abnormality. Joint: Pkco-qi-hwaiibim tricompartmental osteoarthritis of the knee joint. No [...] tissue gas. No focal intramuscular abnormality. Joint: Etnn-jt-zsajpjsx tricompartmental osteoarthritis of the knee joint. No [...] acute fracture or CT evidence of osteomyelitis. [facility] [employer]No Panel InformationOrdered By: Geovanny Melo on 08-06-2024 [facility] [employer] Work Phone: Procalcitoninon 01-66-0007Dmwrxjsmqfbsfm and review of laboratory resultsAbnormalSouthern Virginia Regional Medical CenterProcalcitonin [Mass/Vol]0.14 ng/mLHigh0.00 - 0.09 ng/mLChildren[facility] on above: Suspected Sepsis: <0.50 ng/mL Low [...] entered into the Change in Procalcitonin Calculator (www.kqhmqb-koq-pzbbiuyhrc.com) to determine the patient's Mortality Risk Prognosis In healthy neonates, plasma Procalcitonin (PCT) concentrations increase gradually after , reaching peak values at about 24 hours of age then decrease to normal values below 0.5 ng/mL by 48-72 hours of age. [facility] CenterProcalcitonin0.14 ng/mLHigh0.00-0.09[facility] on above:Result Comment: Suspected Sepsis: <0.50 ng/mL [...] entered into the Change in Procalcitonin Calculator (www.njoqyo-uyw-esmhfymwis.com) to determine the patient's Mortality Risk Prognosis In healthy neonates, plasma Procalcitonin (PCT) concentrations increase gradually after , reaching peak values at about 24 hours of age then decrease to normal values below 0.5 ng/mL by 48-72 hours of age.Performed By: #### CMPX, CDP #### [facility] [address] [place] [address] Supervisor Grading: SERENE Mckenzieound Gram stainon 22-70-3634Oyduhnikelwrvk and review of laboratory resultsAbnormalSouthern Virginia Regional Medical CenterMicroorganism or agent identified Nom (Unsp spec)< 10 EPITHELIAL CELLS/LPFAbnormalSouthern Virginia Regional Medical CenterMicroorganism or agent identified Nom (Unsp spec)<10 NEUTROPHILS/LPF AbnormalMountain States Health Allianceroorganism or agent identified Nom (Unsp spec)MIXED BACTERIAL MORPHOTYPES SEEN ON GRAM STAIN.[facility] Service comment (Unsp spec) [Interp]Site: [facility] HospitalSpecimen Description.[facility] HealthcareCT ABDOMEN AND PELVIS W CONTon 63-28-0488AT ABDOMEN AND PELVIS W CONTNoSt. Francis HospitalCT BRAIN WO CONTon 97-06-7714AL BRAIN WO CONTNormSelect Medical Cleveland Clinic Rehabilitation Hospital, Edwin ShawCT CERVICAL SPINE WO CONTon 08-38-9355OD CERVICAL SPINE WO CONTNormal [facility] Medical CenterCT CHEST W CONTon 91-91-6318YJ CHEST W CONTNormal [facility] Medical CenterXR KNEE RT 3 VWSon 58-97-9012YK KNEE RT 3 VWSNoBucyrus Community HospitalXR TIBIA FIBULA RT MIN 2 VWSon 92-77-4561VR TIBIA FIBULA RT MIN 2 VWSXR TIBIA FIBULA RT MIN 2 VWS RIGHT TIBIA AND FIBULA 2 VIEW COMPARISON: HISTORY: . fall from bed, R lower leg pain IMPRESSION: No acute fracture or dislocation. Finalized by Ulises Carter MD on 07/25/2024 2:02 AMNormalProDoctors Hospital of Laredo AND AUTO DIFFon 06-10-7832GZBQWJLL BASOPHIL0.3 X10E9/LHigh0.0-0.2 ProMLos Robles Hospital & Medical CenterComment on above:Performed By: #### 2639-3, 2156-08, CBCA, 88485-5, PINR, CMP ####[facility] ([id number])[address] [place] [address] 76566ININLHFY NEUTROPHIL8.3 X10E9/LHigh 1.5-6.6ProGrace Medical CenterComment on above:Performed By: #### 2639-3, 2156-08, CBCA, 39649-1, PINR, CMP ####[facility] ([id number])[address] [place] [address] 26966Rgrihanvz/100 WBC (Bld)2.5 % NormalFisher-Titus Medical CenterComment on above:Performed By: #### 2639-3, 2156-08, CBCA, 07835-0, PINR, CMP ####[facility] ([id number])[address] [place] [address] 32145Kmfffyadhsn (Bld) [#/Vol]0.5 10*3/uLHigh0.0-0.4[facility] Medical CenterComment on above:Performed By: #### 2639-3, 2156-08, CBCA, 53628-4, PINR, CMP ####[facility] ([id number])[address] [place] [address] 13298Jbptdowrttk/100 WBC (Bld)4.7 %[facility] Hospital - YoungstownComment on above:Performed By: #### 2639-3, 6, CBCA, 91797-4, PINR, CMP ####[facility] ([id number])[address] [place] [address] 92050Rgmyejbozpy distribution width (RBC) [Ratio]20.8 %High11.5-15.0[facility] Comment on above:Performed By: #### 2639-3, 6, CBCA, 84595-8, PINR, CMP ####[facility] ([id number])[address] [place] [address] 01113Ztbwbyghoa (Bld) [Volume fraction]34.8 %Qaf01-96IahHddxdyGrace Medical CenterComment on above:Performed By: #### 2639-3, 2156-08, CBCA, 81595- 9, PINR, CMP ####[facility] ([id number])[address] [place] [address] 49511Btjhznuyyx (Bld) [Mass/Vol]11.4 g/dLLow11.7-15.5 [facility] HealthedicScripps Memorial HospitalComment on above:Performed By: #### 2639-3, 2156-08, CBCA, 72761-5, PINR, CMP ####[facility] ([id number])[address] [place] [address] 67039Tombwcprrdm (Bld) [#/Vol]1.5 10*3/uL Normal1.0-3.5ProMedica Baldwin Park HospitalComment on above:Performed By: #### 2639- 3, 2156-08, CBCA, 59875-5, PINR, CMP ####[facility] ([id number] 2)[address] [place] [address] 29515Tzwlevqcxfz/100 WBC (Bld) 13.2 %NormalFisher-Titus Medical CenterComment on above:Performed By: #### 2639- 3, 2156-08, CBCA, 32185-8, PINR, CMP ####[facility] ([id number] 2)[address] [place] [address] 50818XBQ (RBC) [Entitic mass] 27.2 xcRblokj10-60ZcdZvladeGrace Medical CenterComment on above:Performed By: #### 2639-3, 2156-08, CBCA, 35725-5, PINR, CMP ####[facility] ([id number])[address] [place] [address] 28769YYXT (RBC) [Mass/Vol]32.9 g/zYRspkno87-93TdqNmimbsGrace Medical CenterComment on above: Performed By: #### 2639-3, 6, CBCA, 19573-1, PINR, CMP ####[facility] ([id number])[address] [place] [address] 84351OYF (RBC) [Entitic vol]83 yUYnwdrn19-189QvaKaakkj Fremont HospitalComment on above: Performed By: #### 2639-3, 2156-08, CBCA, 74739-4, PINR, CMP ####[facility] ([id number])[address] [place] [address] 14868 Monocytes (Bld) [#/Vol]0.9 10*3/uLNormal0-0.9Fisher-Titus Medical CenterComment on above:Performed By: #### 2639-3, 2156-08, CBCA, 68693-6, PINR, CMP ####[facility] ([id number])[address] [place] [address] 79744Fspjuurdl/100 WBC (Bld)8.2 %NormalProGrace Medical CenterComment on above:Performed By: #### 2639-3, 2156-08, CBCA, 51671-5, PINR, CMP ####[facility] ([id number])[address] [place] [address] 15624Mdnfrhoeyxo/100 WBC (Bld)71.4 %NormalProGrace Medical CenterComment on above:Performed By: #### 2639-3, 6, CBCA, 44399-4, PINR, CMP ####[facility] ([id number])[address] [place] [address] 64757Eirneicx mean volume (Bld) [Entitic vol]6.8 fLLow7-12ProMedica Baldwin Park HospitalComment on above:Performed By: #### 2639-3, 2156-08, CBCA, 59924-4, PINR, CMP ####[facility] ([id number])[address] [place] [address] 28339Iuauhqonw (Bld) [#/Vol]465 10*3/lMWbja393-140TzrNsmuuhGrace Medical CenterComment on above:Performed By: #### 2639-3, 2156-08, CBCA, 26592- 9, PINR, CMP ####[facility] ([id number])[address] [place] [address] 08342FYH COUNT4.20 X10E12/LNormal3.80-5.20[facility]itus Medical CenterComment on above:Performed By: #### 2639-3, 2156-08, CBCA, 71662- 9, PINR, CMP ####[facility] ([id number])[address] [place] [address] 95394MZW (Bld) [#/Vol]11.6 10*3/uLHigh4.0-11.0Fisher-Titus Medical CenterComment on above:Performed By: #### 2639-3, 2156-08, CBCA, 09290- 9, PINR, CMP ####[facility] ([id number])[address] [place] [address] 88125ZX [Catalytic activity/Vol]on 72-64-8170WGT60 U/L Amffwd39-560AefEamaqhGrace Medical CenterComment on above:Performed By: #### 2639- 3, 2157-6, CBCA, 81548-5, PINR, CMP ####[facility] ([id number] 2)[address] [place] [address] 48649YJKQDBXVSDPEE METABOLIC PANELon 85-14-4307Rmjwyln [Mass/Vol]3.2 g/dLNormal3.2-5.3ProMedica Baldwin Park HospitalComment on above:Performed By: #### 2639-3, 2156-6, CBCA, 01357-1, PINR, CMP ####[facility] ([id number])[address] [place] [address] 45202FGU [Catalytic activity/Vol]89 U/CNetosp84-082QpwIvmkthFisher-Titus Medical CenterComment on above:Performed By: #### 2639-3, 2156-6, CBCA, 80068- 9, PINR, CMP ####[facility] ([id number])[address] [place] [address] 11045BDR [Catalytic activity/Vol]15 U/LNormal0-31 [facility] Medical CenterComment on above:Performed By: #### 2639-3, 6, CBCA, 22115-7, PINR, CMP ####[facility] ([id number])[address] [place] [address] 25836Hlngx gap [Moles/Vol]9 mmol/LNormal5-15 [facility] Medical CenterComment on above:Performed By: #### 2639-3, 2156-6, CBCA, 54275-8, PINR, CMP ####[facility] ([id number])[address] [place] [address] 11026NXW [Catalytic activity/Vol]12 U/L Normal0-41Fisher-Titus Medical CenterComment on above:Performed By: #### 2639-3, 2156-6, CBCA, 63346-7, PINR, CMP ####[facility] ([id number])[address] [place] [address] 72123Hskmnulzg [Mass/Vol]0.6 mg/dL Normal0.3-1.2PMartins Ferry HospitalComment on above:Performed By: #### 2639- 3, 6, CBCA, 57747-4, PINR, CMP ####[facility] ([id number] 2)[address] [place] [address] 13532Euvhfcw [Mass/Vol]8.9 mg/dL Normal8.5-10.5PMartins Ferry HospitalComment on above:Performed By: #### 2639-3, 2156-08, CBCA, 85305-0, PINR, CMP ####[facility] ([id number])[address] [place] [address] 64500Qpbdynpc [Moles/Vol]101 mmol/TXqrlfs82-435FfiJrffldGrace Medical CenterComment on above: Performed By: #### 2639-3, 2156-08, CBCA, 77073-3, PINR, CMP ####[facility] ([id number])[address] [place] [address] 27136ZJ0 [Moles/Vol]24 mmol/KLcygbh51-04TbgYbluoiMartins Ferry HospitalComment on above: Performed By: #### 2639-3, 2156-08, CBCA, 87352-8, PINR, CMP ####[facility] ([id number])[address] [place] [address] 59218 Creatinine [Mass/Vol]0.98 mg/dLNormal0.40-1.00ProGrace Medical CenterComment on above:Result Comment: METHOD TRACEABLE TO IDMS STANDARDPerformed By: #### 2639-3, 6, CBCA, 87680-7, PINR, CMP ####[facility] ([id number])[address] [place] [address] 77115XLI/1.73 sq M.predicted among non-blacks MDRD (S/P/Bld) [Vol rate/Area]64 mL/min/{1.73_m2} Normal>59ProGrace Medical CenterComment on above:Result Comment: Reported eGFR is based on theCKD-EPI 2020 equation that doesnot use a race coefficient. Performed By: #### 2639-3, 2156-08, CBCA, 11639-2, PINR, CMP ####[facility] ([id number])[address] [place] [address] [id number] [Mass/Vol]96 mg/cSTfppya28-18XluAnmjqrGrace Medical CenterComment on above: Performed By: #### 2639-3, 2156-08, CBCA, 57464-0, PINR, CMP ####[facility] ([id number])[address] [place] [id number] Potassium [Moles/Vol]3.5 mmol/LNormal3.5-5.0ProGrace Medical CenterComment on above:Performed By: #### 2639-3, 2156-08, CBCA, 41519-4, PINR, CMP ####[facility] ([id number])[address] [place] [address] [id number] [Mass/Vol]6.5 g/dLNormal6.0-8.0ProGrace Medical CenterComment on above:Performed By: #### 9-3, 2156-08, CBCA, 51807-7, PINR, CMP ####[facility] ([id number])[address] [place] [address] [id number] [Moles/Vol]134 mmol/ZJfpeuv347-371TtlRzajee Fremont HospitalComment on above:Performed By: #### 2639-3, 2156-08, CBCA, 99896-4, PINR, CMP ####[facility] ([id number])[address] [place] [address] 63993Wrsh nitrogen [Mass/Vol]12 mg/dLNormal5-27ProGrace Medical CenterComment on above:Performed By: #### 2639-3, 2156-6, CBCA, 89654-1, PINR, CMP ####[facility] ([id number])[address] [place] [address] 03385Thsiquolz [Mass/Vol]on 83-83-8456UXMNJ TVHXQWTIL62.7 ng/mL Vrlcox37.3-65.8ProGrace Medical CenterComment on above:Performed By: #### 2639-3, 2156-6, CBCA, 09016-4, PINR, CMP ####[facility] ([id number])[address] [place] [address] 30857UWBTGCL AND INRon 82-08-2194DZM Coag (PPP) [Relative time]1.0 {INR}Normal0.9-1.2PMartins Ferry HospitalComselect specialty hospital-[place] on above:Performed By: #### 2639-3, 6, CBCA, 02308-6, PINR, CMP ####[facility] ([id number])[address] [place] [address] 95391XG Coag (PPP) [Time]11.5 sNormal9.8-13.2PMartins Ferry HospitalComselect specialty hospital-[place] on above:Result Comment: NEW REFERENCE RANGEPerformed By: #### 2639-3, 2156-6, CBCA, 60185-3, PINR, CMP ####[facility] ([id number])[address] [place] [address] 99275tECA Coag (PPP) [Time]on 22-92-7053cDBB Coag (Bld) [Time]31 aNqkqrz49-70AfnPozqwqGrace Medical CenterComselect specialty hospital-[place] on above:Result Comment: NEW REFERENCE RANGEPerformed By: #### 2639-3, 2156-6, CBCA, 52957-1, PINR, CMP ####[facility] ([id number])[address] [place] [address], [place] [address]FEI AND AUTO DIFF on 13-25-6641SCFTRERP BASOPHIL0.0 X10E9/LNormal0.0-0.2PTeche Regional Medical Centerica [facility] Comment on above:Performed By: #### 32788-6, CMP, CBCA ####[facility] ([id number])[address] [place] [address] 25556LMQKJEPX VWOTRPMBEK50.7 X10E9/LHigh1.5-6.6ProGrace Medical CenterComment on above: Performed By: #### 40955-8, CMP, CBCA ####[facility] ([id number])[address] [place] [address] 16559Qtpdshxia/100 WBC (Bld)0.1 %NormalProGrace Medical CenterComment on above:Performed By: #### 13732-0, CMP, CBCA ####[facility] ([id number])[address] [place] [address] 04816Sfndstkxqdd (Bld) [#/Vol]0.0 10*3/uLNormal 0.0-0.4Fisher-Titus Medical CenterComment on above:Performed By: #### 39316-6, CMP, CBCA ####[facility] ([id number])[address] [place] [address] 38785Xqymxjlwwjp/100 WBC (Bld)0.0 %NormalProGrace Medical CenterComment on above:Performed By: #### 27760-0, CMP, CBCA ####[facility] ([id number])[address] [place] [address] 37181Tdlreqbbwfd distribution width (RBC) [Ratio]20.8 %High11.5-15.0ProGrace Medical CenterComment on above:Performed By: #### 21227-7, CMP, CBCA ####[facility] ([id number])[address] [place] [address] 10209Chbmshuzcd (Bld) [Volume fraction]36.0 %Oblpus09-58 ProMLos Robles Hospital & Medical CenterComment on above:Performed By: #### 47659-6, CMP, CBCA ####[facility] ([id number])[address] [place] [address] 39064Wcgcyykszz (Bld) [Mass/Vol]11.6 g/dLLow11.7-15.5PMartins Ferry HospitalComment on above:Performed By: #### 32108-3, CMP, CBCA ####[facility] ([id number])[address] [place] [address] 07906Lstgytjxoyy (Bld) [#/Vol]0.4 10*3/uLLow1.0-3.5PMartins Ferry HospitalComment on above:Performed By: #### 90983-1, CMP, CBCA ####[facility] ([id number])[address] [place] [address] 40688Ddbdrwuryql/100 WBC (Bld)3.1 %NormalFisher-Titus Medical CenterComment on above:Performed By: #### 18965-2, CMP, CBCA ####[facility] ([id number])[address] [place] [address] 92314LKG (RBC) [Entitic mass]26.9 ewNgv05-43IvtBerthlGrace Medical CenterComment on above:Performed By: #### 68153-9, CMP, CBCA ####[facility] ([id number])[address] [place] [address] 55995JXPI (RBC) [Mass/Vol]32.3 g/fHTpdoyu00-66CixZbnknxGrace Medical CenterComment on above: Performed By: #### 64668-6, CMP, CBCA ####[facility] ([id number])[address] [place] [address], [place] [address]ZOV (RBC) [Entitic vol]83 jLYjnovr34-012JheVjnlmoFisher-Titus Medical CenterComment on above: Performed By: #### 62846-2, CMP, CBCA ####[facility] ([id number])[address] [place] [address] 53937Agdqvobzm (Bld) [#/Vol]0.2 10*3/uLNormal0-0.9Fisher-Titus Medical CenterComment on above: Performed By: #### 40807-3, CMP, CBCA ####[facility] ([id number])[address] [place] [address] 20497Qsfrsomcl/100 WBC (Bld)1.4 %NormalFisher-Titus Medical CenterComment on above:Performed By: #### 79260-0, CMP, CBCA ####[facility] ([id number])[address] [place] [address] [place] [address]Rnxukcwraxm/100 WBC (Bld)95.4 %Normal Fisher-Titus Medical CenterComment on above:Performed By: #### 22465-7, CMP, CBCA ####[facility] ([id number])[address] [place] [address] 25912Aatsndmt mean volume (Bld) [Entitic vol]7.0 fLNormal7-12 Fisher-Titus Medical CenterComment on above:Performed By: #### 22331-7, CMP, CBCA ####[facility] ([id number])[address] [place] [address] [place] [address]Kgjnxwnme (Bld) [#/Vol]295 10*3/uACiigaq740-450HilYpxovw [facility]remont HospitalComment on above:Performed By: #### 60358-0, CMP, CBCA ####[facility] ([id number])[address] [place] [address] 92998NTF COUNT4.32 X10E12/LNormal3.80-5.20ProGrace Medical CenterComment on above:Performed By: #### 49109-3, CMP, CBCA ####[facility] ([id number])[address] [place] [address] 92184IJL (Bld) [#/Vol]14.4 10*3/uLHigh4.0-11.0ProGrace Medical CenterComment on above:Performed By: #### 16619-6, CMP, CBCA ####[facility] ([id number])[address] [place] [address] 17258MBXEESIEIJWGH METABOLIC PANELon 29-98-3202Aovyiqx [Mass/Vol]2.7 g/dLLow3.2-5.3PMartins Ferry HospitalComment on above:Performed By: #### 79257-6, CMP, CBCA ####[facility] ([id number])[address] [place] [address] 05319GKW [Catalytic activity/Vol]84 U/IFnppul28-302TupRsyjvfFisher-Titus Medical CenterComment on above:Performed By: #### 23128-4, CMP, CBCA ####[facility] ([id number])[address] [place] [address] 55221ZHP [Catalytic activity/Vol]10 U/LNormal0-31PMartins Ferry HospitalComment on above:Performed By: #### 07240-7, CMP, CBCA ####[facility] ([id number])[address] [place] [address] 99289Euftk gap [Moles/Vol]12 mmol/LNormal5-15ProGrace Medical CenterComment on above:Performed By: #### 48146-8, CMP, CBCA ####[facility] ([id number])[address], [place], [place] [address]LKK [Catalytic activity/Vol]12 U/LNormal0-41[facility] Comment on above:Performed By: #### 27594-0, CMP, CBCA ####[facility] ([id number])[address] [place] [address], [place] [address] Bilirubin [Mass/Vol]0.3 mg/dLNormal0.3-1.2PMartins Ferry HospitalComment on above:Performed By: #### 62488-9, CMP, CBCA ####[facility] ([id number])[address] [place] [address], [place] [address]Zprxoll [Mass/Vol]8.1 mg/dLLow8.5-10.5PMartins Ferry HospitalComment on above: Performed By: #### 91668-7, CMP, CBCA ####[facility] ([id number])[address] [place] [address], [place] [address]Xwiqwjhw [Moles/Vol]99 mmol/DAukpir61-696MorSkwkdoGrace Medical CenterComment on above: Performed By: #### 91983-4, CMP, CBCA ####[facility] ([id number])[address] [place] [address], [place] [address]PE9 [Moles/Vol]24 mmol/XMtcfcm31-43JjfUihkjkMartins Ferry HospitalComment on above:Performed By: #### 76994-1, CMP, CBCA ####[facility] ([id number])[address] [place] [address], [place] [address]Zvlaklpnuu [Mass/Vol]0.74 mg/dLNormal 0.40-1.00Fisher-Titus Medical CenterComment on above:Result Comment: METHOD TRACEABLE TO IDMS STANDARDPerformed By: #### 76991-5, CMP, CBCA ####[facility] ([id number])[address] [place] [address], [place] [address]oMBD (CKD-EPI) NON-RACE DEPENDENT>90Normal>59ProGrace Medical Center Comment on above:Result Comment: Reported eGFR is based on theCKD-EPI 2020 equation that doesnot use a race coefficient.Performed By: #### 67104-4YULISA, PRIYANK ####[facility] ([id number])[address] [place] [address], [place] [address]Xdflrba [Mass/Vol]208 mg/wBHbfo23-58LtlOgoxwoGrace Medical CenterComment on above:Performed By: #### 34294-0, CMP, CBCA ####[facility] ([id number])[address] [place] [address] 90250Yhpccvyxs [Moles/Vol]4.3 mmol/LNormal3.5-5.0[facility] Comment on above:Performed By: #### 19593-7YULISA, PRIYANK ####[facility] ([id number])[address] [place] [address] 26065Suhxvla [Mass/Vol]6.1 g/dLNormal6.0-8.0ProGrace Medical CenterComment on above: Performed By: #### 76446-5YULISA, CBCA ####[facility] ([id number])[address] [place] [address] 37643Fbdtsr [Moles/Vol]135 mmol/CJtkbxi182-511EpoZwaeqm [facility]ont HospitalComment on above: Performed By: #### 46990-5, YULISA, CBCA ####[facility] ([id number])[address] [place] [address] 35949Clyl nitrogen [Mass/Vol]23 mg/dLNormal5-27ProGrace Medical CenterComment on above:Performed By: #### 11556-3, YULISA, CBCA ####[facility] ([id number])[address] [place] [address], [place] [address]CPK [Mass/Vol]on 07-16-2024 REACTIVE PROTEIN2.9 mg/dLHigh0.000-0.744PMartins Ferry HospitalComment on above: Performed By: #### 1987-07, 4091-05 ####[facility] ([id number])[address] [place] [address] 08253Govocfe Glucometer (BldC) [Mass/Vol]on 94-27-8482Auxmone [Mass/Vol]231 mg/yJOggt39-67OvjHyakruGrace Medical CenterGlucose [Mass/Vol]219 mg/kEHpik59-06PzaEkxosfGrace Medical CenterMAGNESIUM on 30-86-6927Wnpufhdfu [Mass/Vol]2.3 mg/dLNormal1.8-2.6ProGrace Medical CenterComment on above:Performed By: #### , CMP, CBCA ####[facility] ([id number])[address] [place] [address] 74445Jhqvgkmsdg trough [Mass/Vol]on 06-57-8168LSZZQNKSTE LOCZFO22.6 ug/mLNormal 5.0-20.0ProGrace Medical CenterComment on above:Performed By: #### 1987-07, 4091-05 ####[facility] ([id number])[address] [place] [address] 82618MUD AND AUTO DIFFon 80-13-5767KKQPLMZN BASOPHIL0.0 X10E9/L Normal0.0-0.2PMartins Ferry HospitalComment on above:Performed By: #### , , CBCA, CMP, 58769-8 ####[facility] ([id number])[address] [place] [address] 47638BGQUQQLR VZQOFFSBUT98.4 X10E9/L High1.5-6.6ProGrace Medical CenterComment on above:Performed By: #### 1987-07, , CBCA, CMP, 74318-0 ####[facility] ([id number])[address] [place] [address] 66429Oqrmqocov/100 WBC (Bld)0.2 %Normal Fisher-Titus Medical CenterComment on above:Performed By: #### 1987-07, , CBCA, CMP, 03453-5 ####[facility] ([id number])[address] [place] [address] 66899Nccatqyltdu (Bld) [#/Vol]0.0 10*3/uLNormal 0.0-0.4Fisher-Titus Medical CenterComment on above:Performed By: #### 1987-07, , CBCA, CMP, 81686-1 ####[facility] ([id number])[address] [place] [address] 84965Lgvpkrqlwob/100 WBC (Bld)0.0 %Normal Fisher-Titus Medical CenterComment on above:Performed By: #### 1987-07, , CBCA, CMP, 41792-6 ####[facility] ([id number])[address] [place] [address] 71633Fvlfyzhkpir distribution width (RBC) [Ratio] 20.1 %High11.5-15.0ProGrace Medical CenterComment on above:Performed By: #### 1987-07, , CBCA, CMP, 93897-5 ####[facility] ([id number])[address] [place] [address] 59649Ydxsivgbny (Bld) [Volume fraction]34.4 %Cix82-43WgmKquobtGrace Medical CenterComment on above: Performed By: #### 1987-07, , CBCA, CMP, 89478-6 ####[facility] ([id number])[address] [place] [address] 38928 Hemoglobin (Bld) [Mass/Vol]11.0 g/dLLow11.7-15.5PMartins Ferry Hospital Comment on above:Performed By: #### 1987-07, , CBCA, CMP, 71096-3 ####[facility] ([id number])[address] [place] [address] 45892Gzkcpncsbue (Bld) [#/Vol]0.4 10*3/uLLow1.0-3.5PMartins Ferry HospitalComment on above:Performed By: #### 1987-07, , CBCA, CMP, 70184-7 ####[facility] ([id number])[address] [place] [address] 56825Cfxdxhizuqm/100 WBC (Bld)2.1 %NormalProGrace Medical CenterComment on above:Performed By: #### 1987-07, , CBCA, CMP, 06098-8 ####[facility] ([id number])[address] [place] [address] 24455ECO (RBC) [Entitic mass]26.9 yxHde05-13KbfDvivgdGrace Medical CenterComment on above:Performed By: #### 1987-07, , CBCA, CMP, 61050-8 ####[facility] ([id number])[address] [place] [address] 14215ILXF (RBC) [Mass/Vol]31.9 g/yCYzj37-32PqhSbzobfGrace Medical CenterComment on above:Performed By: #### 1987-07, , CBCA, CMP, 05320-7 ####[facility] ([id number])[address] [place] [address] 26578OKV (RBC) [Entitic vol]84 wLQabmnm04-569KzdVuomna [facility] HospitalComment on above:Performed By: #### 1987-07, , CBCA, CMP, 69030-8 ####[facility] ([id number])[address] [place] [address] 28470Vwdoijizj (Bld) [#/Vol]0.3 10*3/uLNormal0-0.9ProGrace Medical CenterComment on above:Performed By: #### 1987-07, , CBCA, CMP, 55102-5 ####[facility] ([id number])[address] [place] [address] 80760Snqfzzsdj/100 WBC (Bld)1.6 %NormalProGrace Medical CenterComment on above:Performed By: #### 1987-07, , CBCA, CMP, 73519-3 ####[facility] ([id number])[address] [place] [address] 84134Molhejyhjhf/100 WBC (Bld)96.1 %NormalProGrace Medical CenterComment on above:Performed By: #### 1987-07, , CBCA, CMP, 53774-0 ####[facility] ([id number])[address] [place] [address] 31043Zxvwjfib mean volume (Bld) [Entitic vol]7.0 fLNormal7-12 [facility] HospitalComment on above:Performed By: #### 1987-07, , CBCA, CMP, 98647-3 ####[facility] ([id number])[address] [place] [address] 69840Xczgzhvud (Bld) [#/Vol]290 10*3/uLNormal 150-450ProGrace Medical CenterComment on above:Performed By: #### 1987-07, , CBCA, CMP, 83262-2 ####[facility] ([id number])[address] [place] [address] 83771XUM COUNT4.09 X10E12/LNormal3.80-5.20 [facility]itus Medical CenterComment on above:Performed By: #### 1987-07, , CBCA, CMP, 36859-4 ####[facility] ([id number])[address] [place] [address] 90040WAK (Bld) [#/Vol]19.1 10*3/uLHigh4.0-11.0 [facility] Medical CenterComment on above:Performed By: #### 1987-07, , CBCA, CMP, 26992-5 ####[facility] ([id number])[address] [place] [address] 06457HMULOELOTFPEE METABOLIC PANELon 07-15-2024 Albumin [Mass/Vol]2.6 g/dLLow3.2-5.3PMartins Ferry HospitalComment on above: Performed By: #### 1987-07, , CBCA, CMP, 65024-8 ####[facility] ([id number])[address] [place] [address] 52742JPY [Catalytic activity/Vol]87 U/GExosxd71-353OgqUfgensFisher-Titus Medical CenterComment on above:Performed By: #### 1987-07, , CBCA, CMP, 21958-5 ####[facility] ([id number])[address] [place] [address] 22702NSK [Catalytic activity/Vol]13 U/LNormal0-31PMartins Ferry Hospital Comment on above:Performed By: #### 1987-07, , CBCA, CMP, 58128-8 ####[facility] ([id number])[address] [place] [address] 19184Peiuq gap [Moles/Vol]10 mmol/LNormal5-15ProGrace Medical CenterComment on above:Performed By: #### 1987-07, , CBCA, CMP, 62890-7 ####[facility] ([id number])[address] [place] [address] 54058RLQ [Catalytic activity/Vol]13 U/LNormal0-41ProGrace Medical CenterComment on above:Performed By: #### 1987-07, , CBCA, CMP, 41715-1 ####[facility] ([id number])[address] [place] [address] 15289Ntrnpqftm [Mass/Vol]0.4 mg/dLNormal0.3-1.2PMartins Ferry HospitalComment on above:Performed By: #### 1987-07, , CBCA, CMP, 85296-6 ####[facility] ([id number])[address] [place] [address] 22737Xtsgmzp [Mass/Vol]8.0 mg/dLLow8.5-10.5PMartins Ferry HospitalComment on above:Performed By: #### 1987-07, , CBCA, CMP, 26094-5 ####[facility] ([id number])[address] [place] [address] 73339Meuegfky [Moles/Vol]98 mmol/NXtzbxw73-293DklAypyszGrace Medical CenterComment on above:Performed By: #### 1987-07, , CBCA, CMP, 66392-8 ####[facility] ([id number])[address] [place] [address] 38138LM0 [Moles/Vol]28 mmol/PAaytyh45-47DebZadjwjMartins Ferry HospitalComment on above:Performed By: #### 1987-07, , CBCA, CMP, 07847-5 ####[facility] ([id number])[address] [place] [address] 37699Ghycjoyaot [Mass/Vol]0.70 mg/dLNormal0.40-1.00Fisher-Titus Medical CenterComment on above:Result Comment: METHOD TRACEABLE TO IDMS STANDARDPerformed By: #### 1987-07, , CBCA, CMP, 68515-4 ####[facility] ([id number])[address] [place] [address] 85034qHGE (CKD-EPI) NON-RACE DEPENDENT>90Normal>59ProGr[facility] Medical Center Comment on above:Result Comment: Reported eGFR is based on theCKD-EPI 2020 equation that doesnot use a race coefficient.Performed By: #### 1987-07, , CBCA, CMP, 76098-9 ####[facility] ([id number])[address] [place] [address] 67978Psgwrkp [Mass/Vol]193 mg/yCIuuw05-25 [facility] Medical CenterComment on above:Performed By: #### 1987-07, , CBCA, CMP, 29379-9 ####[facility] ([id number])[address] [place] [address] 39714Emdalyxhz [Moles/Vol]4.5 mmol/LNormal3.5-5.0 [facility] Medical CenterComment on above:Performed By: #### 1987-07, , CBCA, CMP, 24305-4 ####[facility] ([id number])[address] [place] [address] 88995Werplri [Mass/Vol]6.0 g/dLNormal6.0-8.0 [facility] Medical CenterComment on above:Performed By: #### 1987-07, , CBCA, CMP, 24522-4 ####[facility] ([id number])[address] [place] [address] 22605Brmvfw [Moles/Vol]136 mmol/NCnmxio373-926 [facility] Medical CenterComment on above:Performed By: #### 1987-07, , CBCA, CMP, 33015-6 ####[facility] ([id number])[address] [place] [address] 84500Wsbt nitrogen [Mass/Vol]16 mg/dLNormal5-27 [facility] Medical CenterComment on above:Performed By: #### 1987-07, , CBCA, CMP, 58385-5 ####[facility] ([id number])[address] [place] [address] 52872SBX [Mass/Vol]on 07-15-2024 REACTIVE PROTEIN6.9 mg/dLHigh0.000-0.[address] [place], [place] [address]Comment on above: Performed By: #### 1987-07, , CBCA, CMP, 63247-9 ####[facility] ([id number])[address] [place] [address] 25609Xotdibf Glucometer (BldC) [Mass/Vol]on 44-85-1759Apeoagx [Mass/Vol]244 mg/sAGbye35-85 [facility] CenterGlucose [Mass/Vol]201 mg/rQIvxq83-64CxdKgeiduFisher-Titus Medical CenterGlucose [Mass/Vol]155 mg/vHWpsz12-85XgjGfxuijGrace Medical CenterMAGNESIUM on 89-44-6116Idijmffgt [Mass/Vol]2.2 mg/dLNormal1.8-2.6[facility] Medical CenterComment on above:Performed By: #### 1987-07, , CBCA, CMP, 62901-5 ####[facility] ([id number])[address] [place] [address] 44161QK FOOT LT W WO CONTon 55-58-7377WN FOOT LT W WO CONT NormalFisher-Titus Medical CenterMR FOOT RT W WO CONTon 67-18-8273XZ FOOT RT W WO CONTSelect [facility] Specialty Hospital - YoungstownMR LOWER LEG LT W WO CONTon 80-42-1856RF LOWER LEG LT W WO CONTSelect Medical Specialty Hospital - YoungstownMR LOWER LEG RT W WO CONT on 06-85-5897BG LOWER LEG RT W WO CONTSelect [facility] [place] Procalcitonin IA [Mass/Vol]on 16-89-6445IOBHLCFQTRDNW7.08 ng/mLHigh<0.05 [facility] Medical CenterComment on above:Result Comment: NOTE<0.50 ng/mL - Low risk of severe sepsis and/or septic shock.<2.00 ng/mL -Recommend retesting within 6-24 hours.>2.00 ng/mL - High risk of sepsis and/or septic shock. Performed By: #### 1988-5, , CBCA, CMP, 09542-7 ####[facility] ([id number])[address] [place] [address]109 Vancomycin peak [Mass/Vol]on 33-43-4144FLNKWRNKRG PEAK41.5 ug/kRHkgt96.00-40.00 [facility] CenterComment on above:Performed By: #### 4090-7 ####[facility] ([id number])[address] [place] [address] 79539WTL AND AUTO DIFFon 71-67-6613QRDLCHTB BASOPHIL0.0 X10E9/LNormal0.0-0.2 [facility] CenterComment on above:Performed By: #### CMP, CBCA, ####[facility] ([id number])[address] [place] [address] 44478EXXHBOEB SQHUJUJEZR46.7 X10E9/LHigh1.5-6.6[facility] Medical CenterComment on above:Performed By: #### CMP, CBCA, ####[facility] ([id number])[address] [place] [address] 15816Fgvmhbzsy/100 WBC (Bld)0.1 %NormalFisher-Titus Medical CenterComment on above:Performed By: #### CMP, CBCA, ####[facility] ([id number])[address] [place] [address] 16709Tigomurmunx (Bld) [#/Vol]0.0 10*3/uLNormal0.0-0.4[facility] Comment on above:Performed By: #### CMP, CBCA, ####[facility] ([id number])[address] [place] [address] 10181 Eosinophils/100 WBC (Bld)0.0 %[facility] - YoungstownComment on above: Performed By: #### CMP, CBCA, ####[facility] ([id number])[address] [place] [address] 63572Hxixqtdtyzd distribution width (RBC) [Ratio]20.9 %High11.5-15.0[facility] Comment on above:Performed By: #### YULISA, CBCA, ####[facility] ([id number])[address] [place] [address] 09211 Hematocrit (Bld) [Volume fraction]35.6 %Xmpxru65-94ViqUnvrrtFisher-Titus Medical Center Comment on above:Performed By: #### CMP, CBCA, ####[facility] ([id number])[address] [place] [address] 29917 Hemoglobin (Bld) [Mass/Vol]11.3 g/dLLow11.7-15.5PMart[facility] Comment on above:Performed By: #### CMP, CBCA, ####[facility] ([id number])[address] [place] [address] 12298 Lymphocytes (Bld) [#/Vol]0.3 10*3/uLLow1.0-3.5[facility] HospitalComment on above:Performed By: #### CMP, CBCA, ####[facility] ([id number])[address] [place] [address] 14518Qpkqvhwsrki/100 WBC (Bld)2.3 %NormalProGrace Medical CenterComment on above:Performed By: #### CMP, CBCA, ####[facility] ([id number])[address] [place] [address] 96935EZN (RBC) [Entitic mass]26.8 ikApl57-17 [facility] HospitalComment on above:Performed By: #### CMP, CBCA, ####[facility] ([id number])[address] [place] [address] 45898JYUU (RBC) [Mass/Vol]31.8 g/gCQkf19-17LifVghiucGrace Medical CenterComment on above:Performed By: #### CMP, CBCA, ####[facility] ([id number])[address] [place] [address] 49009LEZ (RBC) [Entitic vol]85 cOQsityj36-393VjgCpsszzFisher-Titus Medical CenterComment on above:Performed By: #### CMP, CBCA, ####[facility] ([id number])[address] [place] [address] 99600Jfwpvjonf (Bld) [#/Vol]0.1 10*3/uLNormal0-0.9[facility] Medical CenterComment on above: Performed By: #### CMP, CBCA, ####[facility] [facility] ([id number])[address] [place] [address] 82913Svyiguiks/100 WBC (Bld)0.7 %NormalFisher-Titus Medical CenterComment on above:Performed By: #### CMP, CBCA, ####[facility] ([id number])[address] [place] [address] 86460Kmuoucxesmy/100 WBC (Bld)96.9 %Normal [facility]itus Medical CenterComment on above:Performed By: #### YULISA, CBCA, ####[facility] ([id number])[address] [place] [address] 37317Mdzkzmrd mean volume (Bld) [Entitic vol]7.1 fLNormal7-12 [facility]itus Medical CenterComment on above:Performed By: #### YULISA, CBCA, ####[facility] ([id number])[address] [place] [address] 35620Zkcmoaphl (Bld) [#/Vol]252 10*3/zVCidscp803-286NzbPufzul [facility]ont HospitalComment on above:Performed By: #### YULISA, CBCA, ####[facility] ([id number])[address] [place] [address] 84661TCJ COUNT4.21 X10E12/LNormal3.80-5.20Fisher-Titus Medical CenterComment on above:Performed By: #### YULISA, CBCA, ####[facility] ([id number])[address] [place] [address] 39933NQZ (Bld) [#/Vol]14.2 10*3/uLHigh4.0-11.0Fisher-Titus Medical CenterComment on above:Performed By: #### YULISA, CBCA, ####[facility] ([id number])[address] [place] [address] 05919TKGLBAVLSMEYY METABOLIC PANELon 64-03-5978Xiolhcw [Mass/Vol]2.7 g/dLLow3.2-5.3PMartins Ferry HospitalComment on above:Performed By: #### PRIYANK MÁRQUEZ, ####[facility] ([id number])[address] [place] [address], [place] [address]SKJ [Catalytic activity/Vol]93 U/HIqzdvh95-831DxwZcrpiwGrace Medical CenterComment on above:Performed By: #### YULISA CBCAriana, ####[facility] ([id number])[address] [place] [address], [place] 357[address]URS [Catalytic activity/Vol]14 U/LNormal0-31PMartins Ferry HospitalComment on above:Performed By: #### PRIYANK MÁRQUEZ, ####[facility] ([id number])[address] [place] [address], [place] [address]Dfpqm gap [Moles/Vol]10 mmol/LNormal5-15ProGrace Medical CenterComment on above:Performed By: #### YULISA CBCAriana, ####[facility] ([id number])[address] [place] [address], [place] [address]07[address]TFX [Catalytic activity/Vol]11 U/LNormal0-41ProGrace Medical Center Comment on above:Performed By: #### PRIYANK MÁRQUEZ, ####[facility] ([id number])[address] [place] [address], [place] [address] Bilirubin [Mass/Vol]0.4 mg/dLNormal0.3-1.2PMartins Ferry HospitalComment on above:Performed By: #### YULISA CBCA, ####[facility] ([id number])[address] [place] [address], [place] [address]Remeiwp [Mass/Vol]8.0 mg/dLLow8.5-10.5PMartins Ferry HospitalComment on above: Performed By: #### YULISA CBCAriana, ####[facility] ([id number])[address] [place] [address], [place] [address]Xikjgxeq [Moles/Vol]103 mmol/DAnpega12-877UtpXptmgtGrace Medical CenterComment on above: Performed By: #### PRIYANK MÁRQUEZ, ####[facility] ([id number])[address] [place] [address], [place] [address]TM2 [Moles/Vol]25 mmol/JTanegt08-79OdsIdldwj [facility]ont HospitalComment on above:Performed By: #### PRIYANK MÁRQUEZ, ####[facility] ([id number])[address] [place] [address], [place] [address]Xgnfdoeyuz [Mass/Vol]0.73 mg/dLNormal 0.40-1.00Fisher-Titus Medical CenterComment on above:Result Comment: METHOD TRACEABLE TO IDMS STANDARDPerformed By: #### PRIYANK MÁRQUEZ, ####[facility] ([id number])[address] [place] [address], [place] [address]fSWQ (CKD-EPI) NON-RACE DEPENDENT>90Normal>59ProGrace Medical Center Comment on above:Result Comment: Reported eGFR is based on theCKD-EPI 2020 equation that doesnot use a race coefficient.Performed By: #### PRIYANK MÁRQUEZ, ####[facility] ([id number])[address] [place] [address], [place] [address]Nmrnafo [Mass/Vol]271 mg/qSVgol95-58WxaOivgoeGrace Medical CenterComment on above:Performed By: #### PRIYANK MÁRQUEZ, ####[facility] ([id number])[address] [place] [address] [place] [address]Ebyigfira [Moles/Vol]4.0 mmol/LNormal3.5-5.0[facility] Comment on above:Performed By: #### PRIYANK MÁRQUEZ, ####[facility] ([id number])[address] [place] [address] 98629Ztfpgrp [Mass/Vol]6.1 g/dLNormal6.0-8.0ProGrace Medical CenterComment on above: Performed By: #### PRIYANK MÁRQUEZ, ####[facility] ([id number])[address] [place] [address] 38210Cndgva [Moles/Vol]138 mmol/KLoewus954-333IwjQgdqdq [facility]ont HospitalComment on above: Performed By: #### PRIYANK MÁRQUEZ, ####[facility] ([id number])[address] [place] [address] 36665Yrhr nitrogen [Mass/Vol]13 mg/dLNormal5-27ProGrace Medical CenterComment on above:Performed By: #### PRIYANK MÁRQUEZ, ####[facility] ([id number])[address] [place] [address] 35530Eddrgxm Glucometer (BldC) [Mass/Vol]on 17-29-8616Fsongks [Mass/Vol]166 mg/vESsam70-40PzhQpoqheFisher-Titus Medical CenterGlucose [Mass/Vol]255 mg/aBDqae11-72XgaKzkxmmFisher-Titus Medical CenterGlucose [Mass/Vol]276 mg/kPGtok20-39RwkIwfogvFisher-Titus Medical CenterMAGNESIUMon 12-36-7009Iwctlxkvb [Mass/Vol]2.1 mg/dLNormal1.8-2.6Fisher-Titus Medical CenterComment on above: Performed By: #### PRIYANK MÁRQUEZ, ####[facility] ([id number])[address] [place] [address] 20175VVYNR METABOLIC PANLon 20-82-2416Jncok gap [Moles/Vol]9 mmol/LNormal5-15ProGrace Medical CenterComment on above:Performed By: #### PRIYANK, 04773-4, BMP ####[facility] ([id number])[address] [place] [address] 56624#### HA1C ####[facility] ([id number])[address] [facility], [address], [place] [address]Jizeyhb [Mass/Vol]8.6 mg/dLNormal8.5-10.5PMartins Ferry HospitalComment on above:Performed By: #### PRIYANK, 82884-6, BMP ####[facility] ([id number])[address] [place] [address] 94855#### HA1C ####[facility] ([id number])[address] [facility], [address] [place] [address]Ihsbxwxs [Moles/Vol]103 mmol/ZLcgpaz67-883YeiWlsruoGrace Medical CenterComment on above:Performed By: #### PRIYANK, 92885-0, BMP ####[facility] ([id number])[address] [place] [address] 40273#### HAJp ####[facility] ([id number])[address] [facility], [address] [place] [address]DC6 [Moles/Vol]25 mmol/L Cpwbdr16-73LiaLkstjyMartins Ferry HospitalComment on above:Performed By: #### PRIYANK, 84711-6, BMP ####[facility] ([id number])[address] [place] [address] 75194#### HA1C ####[facility] ([id number])[address] [facility], [address] [place] [address]Jbqjnurpss [Mass/Vol]0.79 mg/dLNormal0.40-1.00ProGrace Medical CenterComment on above:Result Comment: METHOD TRACEABLE TO IDMS STANDARDPerformed By: #### PRIYANK, 25814-4, BMP ####[facility] ([id number])[address] [place] [address] 92379#### HA1C ####[facility] ([id number])[address], [place] [address]NMR/1.73 sq M.predicted among non-blacks MDRD (S/P/Bld) [Vol rate/Area]83 mL/min/{1.73_m2}Normal>59 [facility] HospitalComment on above:Result Comment: Reported eGFR is based on theCKD-EPI 2020 equation that doesnot use a race coefficient.Performed By: #### PRIYANK 12215-9, BMP ####[facility] ([id number])[address] [place] [address] 31472#### HAJp ####[facility] ([id number])[address], [address] [place] [address] 32187Jbbaokf [Mass/Vol]104 mg/sPHxtq70-74UvsYehsjl [facility] HospitalComment on above:Performed By: #### PRIYANK 99095-3, BMP ####[facility] ([id number])[address] [place] [address] 24051#### HAJp ####[facility] ([id number])[address], [address] [place] [address] 76527Ckrrvirea [Moles/Vol]3.7 mmol/LNormal3.5-5.0Pro[facility] HospitalComment on above:Performed By: #### PRIYANK 54872-7, BMP ####[facility] ([id number])[address] [place] [address] 12740#### HA1C ####[facility] ([id number])[address], [place] [address]Xnnaoy [Moles/Vol]137 mmol/HVstxcd460-581RlqAvoytm [facility] HospitalComment on above:Performed By: #### CBCAriana, 53200-9, BMP ####[facility] ([id number])[address] [place] [address] 28399#### HA1C ####[facility] ([id number])[address], [address] [place] [address] 22080Qlca nitrogen [Mass/Vol]9 mg/dLNormal5-27ProGrace Medical CenterComment on above:Performed By: #### CBCA, 78473-5, BMP ####[facility] ([id number])[address] [place] [address] 30306#### HA1C ####[facility] ([id number])[address], [address] [place] [address] 26749JWRRF CULTUREon 07-13-2024 Bacteria identified Aer cx Nom (Bld)SPECIMEN NOTES SUBOPTIMAL VOLUME OF BLOOD COLLECTED, RESULTS MAY BE AFFECTED. CULTURE RESULTS NO GROWTH 5 DAYSNormalFisher-Titus Medical CenterComment on above:Performed By: #### 81649-0 ####[facility] ([id number])[address], [address] [place] [address] 79536Nrsompse identified Aer cx Nom (Bld)CULTURE RESULTS NO GROWTH 5 DAYSNormalFisher-Titus Medical CenterCBC AND AUTO DIFFon 07-13-2024 ABSOLUTE BASOPHIL0.1 X10E9/LNormal0.0-0.2[facility] HospitalComment on above:Performed By: #### CBCA, 07792-0, BMP ####[facility] ([id number])[address] [place] [address] 20552#### HA1C ####[facility] ([id number])[address], [address] [place] [address] 53485NNGFJXLA PYIPBEKGIS04.3 X10E9/LHigh1.5-6.6ProWvumedicine Harrison Community Hospitalca [facility] Comment on above:Performed By: #### CBCAriana, 40233-4, BMP ####[facility] ([id number])[address] [place] [address] 86774#### HA1C ####[facility] ([id number])[address], [address], [place] [address]Lbfgqfdow/100 WBC (Bld)0.9 %NormalFisher-Titus Medical Center Comment on above:Performed By: #### CBCAriana, 35058-2, BMP ####[facility] ([id number])[address] [place] [address] 02901#### HA1C ####[facility] ([id number])[address], [address], [place] [address]Yiwjwcooxfz (Bld) [#/Vol]0.3 10*3/uLNormal0.0-0.4ProGrace Medical CenterComment on above:Performed By: #### CBCAriana, 06492-0, BMP ####[facility] ([id number])[address] [place] [address] 31789#### HAJp ####[facility] ([id number])[address], [address] [place] [address] 70647Fwkimqnogwd/100 WBC (Bld) 1.9 %NormalFisher-Titus Medical CenterComment on above:Performed By: #### CBCAriana, 93335-6, BMP ####[facility] ([id number])[address] [place] [address] 61672#### HA1C ####[facility] ([id number])[address], [place] [address]Utozvmmysyz distribution width (RBC) [Ratio]21.0 %High11.5-15.0ProGrace Medical CenterComment on above:Performed By: #### PRIYANK, 73250-4, BMP ####[facility] ([id number])[address] [place] [address] 98281#### HA1C ####[facility] ([id number])[address], [address], [place] [address]Wriiswkhuj (Bld) [Volume fraction]36.3 %Hensfp83-05PtaLwohmh [facility] HospitalComment on above:Performed By: #### PRIYANK, 96559-1, BMP ####[facility] ([id number])[address] [place] [address] 96632#### HA1C ####[facility] ([id number])[address], [place] [address]Qamjvrxutc (Bld) [Mass/Vol]11.6 g/dLLow11.7-15.5 [facility] HospitalComment on above:Performed By: #### PRIYANK, 71008-2, BMP ####[facility] ([id number])[address] [place] [address] 02977#### HA1C ####[facility] ([id number])[address], [address], [place] [address]Fqogbfbrsuk (Bld) [#/Vol] 1.3 10*3/uLNormal1.0-3.5[facility] HospitalComment on above:Performed By: #### PRIYANK, 45247-5, BMP ####[facility] ([id number])[address] [place] [address] 61921#### HA1C ####[facility] ([id number])[address], [address], [place] [address]Nwguulmtcoj/100 WBC (Bld)7.6 %NormalProWvumedicine Harrison Community Hospitalca [facility] HospitalComment on above:Performed By: #### PRIYANK, 67889-3, BMP ####[facility] ([id number])[address] [place] [address] 94043#### HA1C ####[facility] ([id number])[address], [address] [place] [address] 29073PFA (RBC) [Entitic mass] 26.7 xlOxh71-22ZiiUdphezGrace Medical CenterComment on above:Performed By: #### PRIYANK, 83854-8, BMP ####[facility] ([id number])[address] [place] [address] 37963#### HAJp ####[facility] ([id number])[address] [facility], [address] [place] [address] 19111PBTS (RBC) [Mass/Vol]31.9 g/bIEcs39-00HpoSvrrhoGrace Medical CenterComment on above:Performed By: #### PRIYANK, 85259-3, BMP ####[facility] ([id number])[address] [place] [address] 50370#### HAJp ####[facility] ([id number])[address] [place] [address] 91222VZB (RBC) [Entitic vol]84 nKIcsvzl78-982IhxCrmlld [facility] HospitalComment on above:Performed By: #### PRIYANK, 53453-3, BMP ####[facility] ([id number])[address] [place] [address] 31540#### HA1C ####[facility] ([id number])[address], [address] [place] [address] 75711Nnkqgpqyc (Bld) [#/Vol]1.0 10*3/uLHigh0-0.9ProGrace Medical CenterComment on above:Performed By: #### PRIYANK, 21760-7, BMP ####[facility] ([id number])[address] [place] [address] 22094#### BRIJESH ####[facility] ([id number])[address], [place] [address]Bdwdryzpf/100 WBC (Bld)5.7 %NormalFisher-Titus Medical CenterComment on above:Performed By: #### PRIYANK 39096-8, BMP ####[facility] ([id number])[address] [place] [address] 48437#### HAJp ####[facility] ([id number])[address] [facility], [address], [place] [address]Zvhytpotjlc/100 WBC (Bld) 83.9 %NormalFisher-Titus Medical CenterComment on above:Performed By: #### PRIYANK 96413-1, BMP ####[facility] ([id number])[address] [place] [address] 59588#### BRIJESH ####[facility] ([id number])[address] [place] [address] 13216Jgkrwico mean volume (Bld) [Entitic vol]7.1 fLNormal7-12[facility] HospitalComment on above: Performed By: #### PRIYANK 92775-8, BMP ####[facility] ([id number])[address] [place] [address] 28094#### HAJp ####[facility] ([id number])[address] [place] [address] 87279Gjauohpfq (Bld) [#/Vol]288 10*3/mVUykhrm566-774ZrdWtqsak [facility] Comment on above:Performed By: #### PRIYANK, 87177-0, BMP ####[facility] ([id number])[address] [place] [address] 59752#### BRIJESH ####[facility] ([id number])[address] [place] [address], [address] [place] [address] 40613UKL COUNT4.35 X10E12/LNormal3.80-5.20ProGrace Medical CenterComment on above:Performed By: #### PRIYANK 41077-9, BMP ####[facility] ([id number])[address] [place] [address] 33775#### BRIJESH ####[facility] ([id number])[address] [place] [address], [address] [place] [address] 30799LGP (Bld) [#/Vol]17.0 10*3/uLHigh4.0-11.0ProGrace Medical CenterComment on above:Performed By: #### PRIYANK 05706-1, BMP ####[facility] ([id number])[address] [place] [address] 35947#### BRIJESH ####[facility] ([id number])[address] [place] [address], [address] [place] [address] 26448Oianccn Glucometer (BldC) [Mass/Vol]on 44-75-9787Xulwruv [Mass/Vol]329 mg/cAIpqy68-76FtfAsjjpoFisher-Titus Medical CenterGlucose [Mass/Vol]318 mg/uUZlqi45-15TkoMvnksbGrace Medical CenterHGB A1C (GLYCO-HGB)on 94-04-2056Otktvgi [Mass/Vol]171 mg/dLNormalProGrace Medical CenterComment on above:Performed By: #### PRIYANK, 13311-7, BMP ####[facility] ([id number])[address] [place] [address] 71400#### HAJp ####[facility] ([id number])[address] [place] [address], [address] [place] [address] 72260KrQ8u (Bld) [Mass fraction]7.6 %High4.4-5.6ProGrace Medical CenterComment on above:Result Comment: NOTE ADA Guidelines Result HgbA1c Normal : less than 5.7 % Prediabetes : 5.7 % to 6.4 % Diabetes : > 6.4 %Use with caution in patients with abnormal hemoglobin variants asthe half-life of red blood cells and in vivo glycation rates areaffected.Performed By: #### CBCA, 02340-1, BMP ####[facility] ([id number])[address] [place] [address] 28162#### HA1C ####[facility] ([id number])[address] [place] [address] 42625Gtppgez (P nathalie) [Moles/Vol]on 01-79-3261RHJBAKI W/REFLEX0.7 mmol/LNormal 0.4-2.0ProGrace Medical CenterComment on above:Result Comment: Result did not trigger repeat Lactate,re-order if needed.Performed By: #### 13627-9 ####[facility] ([id number])[address] [place] [address] 26531SCYY PCR NASALon 02-91-1824FCJV DNA JANIA+probe Ql (Unsp spec) NegativeNormalNEGProGrace Medical CenterComment on above:Performed By: #### 47945-8 ####[facility] ([id number])[address] [place] [address] 59120Mxwowizh I.cardiac High sensitivity method [Mass/Vol]on HOUR TROP I, HIGH SENSITIVITY6 ng/LNormal<16ProGrace Medical CenterComment on above:Performed By: #### 60052-1 ####[facility] ([id number])[address] [place] [address], [place] [address]WRUNUUMF I, HIGH SENSITIVITY5 ng/LNormal<16Fisher-Titus Medical CenterComment on above: Performed By: #### PRIYANK, 03398-4, BMP ####[facility] ([id number])[address] [place] [address], [place] [address]#### HA1C ####[facility] ([id number])[address] [facility], [address], [place] [address]CI CHEST 1 VWon 95-82-7386OK CHEST 1 VWNormalProGrace Medical CenterXR FOOT LT MIN 3 VWSon 84-19-0515UK FOOT LT MIN 3 VWSNormSelect Medical [facility] Clinic Rehabilitation Hospital, Edwin ShawXR FOOT RT MIN 3 VWSon 01-54-2292SK FOOT RT MIN 3 [facility] HospitalBASIC METABOLIC PANLon 31-54-7497Normn gap [Moles/Vol]9 mmol/L Normal5-15ProGrace Medical CenterComment on above:Performed By: #### PRIYANK ALEMAN, BMP ####[facility] ([id number])[address] [place] [address] 004[address]Whugkah [Mass/Vol]8.9 mg/dLNormal8.5-10.5PMartins Ferry HospitalComment on above:Performed By: #### PRIYANK ALEMAN, BMP ####[facility] ([id number])[address] [place] [address]406 Chloride [Moles/Vol]102 mmol/JHktkqi06-147MfpRxraprGrace Medical CenterComment on above:Performed By: #### PRIYANK ALEMAN, BMP ####[facility] ([id number])[address] [place] [address] 61059EJ6 [Moles/Vol]23 mmol/XQljsop52-03HrgQkipogMartins Ferry HospitalComment on above:Performed By: #### LIVDarlin CBCAriana, BMP ####[facility] ([id number])[address] [place] [address]6908Musnufurng [Mass/Vol]0.82 mg/dLNormal0.40-1.00 ProMLos Robles Hospital & Medical CenterComment on above:Result Comment: METHOD TRACEABLE TO IDMS STANDARDPerformed By: #### PRIYANK ALEMAN BMP ####[facility] ([id number])[address] [place] [address] 90505ZDK/1.73 sq M.predicted among non-blacks MDRD (S/P/Bld) [Vol rate/Area]80 mL/min/{1.73_m2} Normal>59ProGrace Medical CenterComment on above:Result Comment: Reported eGFR is based on theCKD-EPI 2020 equation that doesnot use a race coefficient. Performed By: #### PRIYANK ALEMAN BMP ####[facility] ([id number])[address] [place] [address] 90454Gfgustx [Mass/Vol]155 mg/dLHigh 65-99ProGrace Medical CenterComment on above:Performed By: #### PRIYANK ALEMAN BMP ####[facility] ([id number])[address] [place] [address] 63565Wcokyygpn [Moles/Vol]5.0 mmol/LNormal3.5-5.0Fisher-Titus Medical CenterComment on above:Performed By: #### PRIYANK ALEMAN, BMP ####[facility] ([id number])[address] [place] [address] 98649 Sodium [Moles/Vol]134 mmol/PWqvphf710-524IpwYqeidz Fremont HospitalComment on above:Performed By: #### PRIYANK ALEMAN, BMP ####[facility] ([id number])[address] [place] [address] 15582Rppe nitrogen [Mass/Vol]11 mg/dLNormal5-27ProGrace Medical CenterComment on above:Performed By: #### ASH CBCAriana, BMP ####[facility] ([id number])[address] [place] [address] 97525ZYT AND AUTO DIFFon [id number] BASOPHIL0.1 X10E9/LNormal0.0-0.2ProMedica Baldwin Park HospitalComment on above: Performed By: #### LIVDarlin CBCA, BMP ####[facility] ([id number])[address] [place] [address] 53633PYKVCROH NEUTROPHIL8.0 X10E9/L High1.5-6.6Fisher-Titus Medical CenterComment on above:Performed By: #### LIVDarlin CBCA, BMP ####[facility] ([id number])[address] [place] [address] 22351Halubrpaz/100 WBC (Bld)1.4 %NormalProGrace Medical CenterComment on above:Performed By: #### LIVDarlin CBCA, BMP ####[facility] ([id number])[address] [place] [address] 63913 Eosinophils (Bld) [#/Vol]0.4 10*3/uLNormal0.0-0.4[facility] Comment on above:Performed By: #### LIVDarlin CBCA, BMP ####[facility] ([id number])[address] [place] [address] 22166 Eosinophils/100 WBC (Bld)3.7 %NormalFisher-Titus Medical CenterComment on above: Performed By: #### LIVDarlin CBCA, BMP ####[facility] ([id number])[address] [place] [address] 91812Oaphkovrvyh distribution width (RBC) [Ratio]18.6 %High11.5-15.0Fisher-Titus Medical CenterComment on above: Performed By: #### LIVR, CBCA, BMP ####[facility] ([id number])[address] [place] [address] 19472Boxzmangkg (Bld) [Volume fraction]39.2 %Rabmyy00-20HqhJzqqvzGrace Medical CenterComment on above:Performed By: #### LIVDarlin CBCA, BMP ####[facility] ([id number])[address] [place] [address] 05785Pmftdabosv (Bld) [Mass/Vol]12.9 g/dL Xqyijh49.7-15.5ProMedica Baldwin Park HospitalComment on above:Performed By: #### LIVDarlin CBCA, BMP ####[facility] ([id number])[address] [place] [address] 68762Gxqfdedfocm (Bld) [#/Vol]1.1 10*3/uLNormal1.0-3.5 [facility] HospitalComselect specialty hospital-pont[place] on above:Performed By: #### LIVR, CBCA, BMP ####[facility] ([id number])[address] [place] [address] [address]Etjttglbikl/100 WBC (Bld)10.7 %NormalFisher-Titus Medical CenterComment on above:Performed By: #### LIVR CBCA, BMP ####[facility] ([id number])[address] [place] [address]3575ZFD (RBC) [Entitic mass]27.9 unPxvmsn10-77JrzXovxwwGrace Medical CenterComment on above:Performed By: #### LIVR, CBCA, BMP ####[facility] ([id number])[address] [place] [address] 80266IXAL (RBC) [Mass/Vol]32.8 g/zIXnnrrj71-32VohFzhptmGrace Medical CenterComment on above: Performed By: #### LIVR, CBCA, BMP ####[facility] ([id number])[address] [place] [address], [place] [address]VLY (RBC) [Entitic vol]85 fL Lugpus95-935WrhXmiihnGrace Medical CenterComment on above:Performed By: #### LIVDarlin, CBCA, BMP ####[facility] ([id number])[address] [place] [address] 76[address]Djsjygdth (Bld) [#/Vol]0.8 10*3/uLNormal0-0.9Fisher-Titus Medical CenterComment on above:Performed By: #### LIVDarlin, CBCA, BMP ####[facility] ([id number])[address] [place] [address] Monocytes/100 WBC (Bld)7.6 %NormalFisher-Titus Medical CenterComment on above: Performed By: #### LIVDarlin, CBCA, BMP ####[facility] ([id number])[address] [place] [address], [place] [address]Xkanmsjmdyi/100 WBC (Bld)76.6 % NormalFisher-Titus Medical CenterComment on above:Performed By: #### LIVR, CBCA, BMP ####[facility] ([id number])[address] [place] [address]Dvkrqndo mean volume (Bld) [Entitic vol]7.5 fLNormal7-12 ProMLos Robles Hospital & Medical CenterComment on above:Performed By: #### LIVR, CBCA, BMP ####[facility] ([id number])[address] [place] [address] 50[address]Pfxdgmezf (Bld) [#/Vol]259 10*3/cHBfbqxa613-851YrsVusqob Fremont HospitalComment on above:Performed By: #### LIVR, CBCA, BMP ####[facility] ([id number])[address] [place] [address], [place] [address] RBC COUNT4.61 X10E12/LNormal3.80-5.20ProGrace Medical CenterComment on above: Performed By: #### PRIYANK ALEMAN, BMP ####[facility] ([id number])[address] [place] [address] 16121ULR (Bld) [#/Vol]10.4 10*3/uL Normal4.0-11.0ProGrace Medical CenterComment on above:Performed By: #### PRIYANK ALEMAN, BMP ####[facility] ([id number])[address] [place] [address]DDRYA PANELon 17-60-6985Lpdttzh [Mass/Vol]3.8 g/dL Normal3.2-5.3PMartins Ferry HospitalComment on above:Performed By: #### PRIYANK ALEMAN, BMP ####[facility] ([id number])[address] [place] [address], [place] [address]XQC [Catalytic activity/Vol]105 U/DArahte33-483FegXhdsdqGrace Medical CenterComment on above:Performed By: #### PRIYANK ALEMAN, BMP ####[facility] ([id number])[address] [place] [address], [place] [address] ALT [Catalytic activity/Vol]13 U/LNormal0-31PMartins Ferry HospitalComment on above:Performed By: #### PRIYANK ALEMAN, BMP ####[facility] ([id number])[address] [place] [address], [place] [address]CTH [Catalytic activity/Vol]22 U/LNormal0-41ProGrace Medical CenterComment on above: Performed By: #### PRIYANK ALEMAN, BMP ####[facility] ([id number])[address] [place] [address] 7[address]Iojoyphqb [Mass/Vol]1.1 mg/dL Normal0.3-1.2ProMedica [facility] Park HospitalComment on above:Performed By: #### PRIYANK ALEMAN, BMP ####[facility] ([id number])[address] [place] [address]Cdoqjaqyl.direct [Mass/Vol]0.2 mg/dLNormal0.0-0.4 [facility] HospitalComment on above:Performed By: #### PRIYANK ALEMAN, BMP ####[facility] ([id number])[address] [place] [address]Bgzjjyg [Mass/Vol]7.4 g/dLNormal6.0-8.0ProMed[facility] Park HospitalComment on above:Performed By: #### PRIYANK ALEMAN, BMP ####[facility] ([id number])[address] [place] [address] 635[address]FBPZD METABOLIC PANLon 61-50-1617Hrezh gap [Moles/Vol]13 mmol/LNormal5-15ProPike Community HospitalComment on above:Performed By: #### PRIYANK, 15891-6, CMP #### [facility] ([id number]) [address], [address] [place], [place] [address]Wohmkot [Mass/Vol]9.0 mg/dLNormal8.5-10.5PUniversity Hospitals Samaritan Medical CenterComment on above:Performed By: #### PRIYANK, 20741-8, CMP #### [facility] ([id number]) [address], [address] [place], [place] [address]Zsbcknqa [Moles/Vol]97 mmol/FEhq64-251NgeBgiiycPike Community Hospital Comment on above:Performed By: #### PRIYANK, 28939-0, CMP #### [facility] ([id number]) [address], [address] [place], [place] [address]JS9 [Moles/Vol]27 mmol/LFjccwl53-71FctSxcavwUniversity Hospitals Samaritan Medical Center Comment on above:Performed By: #### PRIAYNK , CMP #### [facility] ([id number]) [address], [address] [place], [place] [address]Czvrffjeoa [Mass/Vol]0.53 mg/dLNormal0.40-1.00ProPike Community HospitalComment on above:Result Comment: METHOD TRACEABLE TO IDMS STANDARD Performed By: #### PRIYANK , CMP #### [facility] ([id number]) [address], [address] [place], [place] [address]xSDP (CKD-EPI) NON-RACE DEPENDENT>90Normal>59ProPike Community HospitalComment on above:Result Comment: Reported eGFR is based on the CKD-EPI 2020 equation that does not use a race coefficient.Performed By: #### PRIYANK , CMP #### [facility] ([id number]) [address], [address] [place], [place] [address]Ipxwnff [Mass/Vol]121 mg/cGRgka93-59GhjWcyhrsMcKitrick Hospital Comment on above:Performed By: #### PRIYANK , CMP #### [facility] ([id number]) [address], [address] [place], [place] [address]Jajkfdrgi [Moles/Vol]3.4 mmol/LLow3.5-5.0ProPike Community HospitalComment on above:Performed By: #### PRIYANK , CMP #### [facility] ([id number]) [address], [address] [place], [place] [address]Kunzzf [Moles/Vol]137 mmol/ZKimdtr334-363RryVoycsh [place] HospitalComment on above:Performed By: #### PRIYANK, , CMP #### [facility] ([id number]) [address], [address] [place], [place] [address]Jsra nitrogen [Mass/Vol]9 mg/dLNormal5-27ProBarnesville Hospital HospitalComment on above:Performed By: #### PRIYANK, , CMP #### [facility] ([id number]) [address], [address] [place], [place] [address]PPIYWKPR BLOOD COUNTon 90-71-9997Qnhbhemznxt distribution width (RBC) [Ratio]17.6 %High11.5-15.0ProWvumedicine Harrison Community Hospitalca [facility] HospitalComment on above: Performed By: #### PRIYANK, , CMP #### [facility] ([id number]) [address], [facility] [address] [place], [place] [address]Vizldgirrc (Bld) [Volume fraction]38.3 %Rkcmsj28-65IkrDkervx [place] HospitalComment on above:Performed By: #### PRIYANK, , CMP #### [facility] ([id number]) [address], [address] [place], [place] [address]Rbmzuqpweq (Bld) [Mass/Vol]12.9 g/qQHzntby51.7-15.5ProMedica [facility] HospitalComment on above:Performed By: #### PRIYANK, , CMP #### [facility] ([id number]) [address], [facility] [address] [place], [place] [address]UWT (RBC) [Entitic mass]29.4 kjVgrcjv92-32NwnDwndxf [place] HospitalComment on above:Performed By: #### PRIYANK, , CMP #### [facility] ([id number]) [address], [address] [place], [place] [address]XPVW (RBC) [Mass/Vol]33.7 g/iZBjyyso14-39WncMzkrxr [place] HospitalComment on above:Performed By: #### PRIYANK, , CMP #### [facility] ([id number]) [address], [address] [place], [place] [address]OXS (RBC) [Entitic vol]87 bZFpvjep95-807WekQrkdkj [place] HospitalComment on above:Performed By: #### PRIYANK, , CMP #### [facility] ([id number]) [address], [address] [place], [place] [address]Fvajxepv mean volume (Bld) [Entitic vol]7.1 fLNormal7-12 ProMedicDetwiler [facility] Hospital HospitalComment on above:Performed By: #### PRIYANK, , CMP #### [facility] ([id number]) [address], [address] [place], [place] [address]Gfndfjczw (Bld) [#/Vol]225 10*3/oOTrzqdo653-983SnuEqqplp [place] HospitalComment on above:Performed By: #### PRIYANK, , CMP #### [facility] ([id number]) [address], [address] [place] [address]YSH COUNT4.40 X10E12/LNormal3.80-5.20[facility] Comment on above:Performed By: #### PRIYANK, , CMP #### [facility] ([id number]) [address], [address] [place] [address]PIE (Bld) [#/Vol]9.8 10*3/uLNormal4.0-11.0ProPike Community HospitalComment on above:Performed By: #### PRIYANK, , CMP #### [facility] ([id number]) [address], [address] [place] [address]Xxcmbgk unfractionated Chromogenic method Qn (PPP)on 04-19-2024 ANTI XA UFH0.42 IU/mLNormal0.30-0.70ProPike Community HospitalComment on above: Result Comment: Optimal time for testing is 6 hrs post dosage This test is specific for monitoring patients on UFH, and is not recommended for use with other Anti-Xa medications.Performed By: #### PRIYANK, 54486-6, CMP #### [facility] ([id number]) [address], [address] [place], [place] [address]FHIYEJB AND INRon 93-97-0740PQV Coag (PPP) [Relative time]1.0 {INR}Normal0.8-1.1PProMedica Defiance Regional Hospital HospitalComment on above:Performed By: #### PRIYANK, , CMP #### [facility] ([id number]) [address], [address] [place], [place] [address]NL Coag (PPP) [Time]11.5 sNormal9.8-13.2PUniversity Hospitals Samaritan Medical CenterComment on above:Performed By: #### PRIYANK, 52493-9, CMP #### [facility] ([id number]) [address], [address] [place], [place] [address]AMSZU METABOLIC PANLon 63-14-7001Dmmed gap [Moles/Vol]6 mmol/L Normal5-15ProBarn[facility]ville Hospital HospitalComment on above:Performed By: #### 70045-1, CBCA, CMP #### [facility] ([id number]) [address], [address] [place], [place] [address]Nzzxeod [Mass/Vol]8.7 mg/dLNormal8.5-10.5PProMedica Defiance Regional Hospital HospitalComment on above:Performed By: #### 72779-4, CBCA, CMP #### [facility] ([id number]) [address], [address] [place], [place] [address]Ajojvddg [Moles/Vol]103 mmol/VZvdznt44-633JyoPrcljl [place] HospitalComment on above:Performed By: #### 32276-9, CBCA, CMP #### [facility] ([id number]) [address], [address] [place], [place] [address]DX6 [Moles/Vol]29 mmol/YIdhxlo23-52AvtFfxlmbUniversity Hospitals Samaritan Medical Center Comment on above:Performed By: #### 99391-8, CBCA, CMP #### [facility] ([id number]) [address], [address] [place], [place] [address]Tszlmnggmz [Mass/Vol]0.62 mg/dLNormal0.40-1.00McKitrick HospitalComment on above:Result Comment: METHOD TRACEABLE TO IDMS STANDARD Performed By: #### 99914-5, CBCA, CMP #### [facility] ([id number]) [address], [address] [address]sPNU (CKD-EPI) NON-RACE DEPENDENT>90Normal>59ProPike Community HospitalComment on above:Result Comment: Reported eGFR is based on the CKD-EPI 2020 equation that does not use a race coefficient.Performed By: #### 76697-0, CBCA, CMP #### [facility] ([id number]) [address], [address] [place], [place] [address]Eyeqtso [Mass/Vol]91 mg/oHGfxsyp22-01AupCktjnwMcKitrick Hospital Comment on above:Performed By: #### 03259-2, CBCA, CMP #### [facility] ([id number]) [address], [facility] [address] [place], [place] [address]Ptquodvid [Moles/Vol]4.3 mmol/LNormal3.5-5.0ProPike Community HospitalComment on above:Performed By: #### 20054-2, CBCA, CMP #### [facility] ([id number]) [address], [address] [place], [place] [address]Dliard [Moles/Vol]138 mmol/IDltgwd278-448ZcmQfnjrj [place] HospitalComment on above:Performed By: #### 60620-7, CBCA, CMP #### [facility] ([id number]) [address], [address] [place], [place] [address]Opoj nitrogen [Mass/Vol]12 mg/dLNormal5-27ProMedica [facility] HospitalComment on above:Performed By: #### 76909-6, CBCA, CMP #### [facility] ([id number]) [address], [facility] [address] [place], [place] [address]DSKLKZBS BLOOD COUNTon 86-87-6156Nyjfwukohfq distribution width (RBC) [Ratio]17.2 %High11.5-15.0ProMedica [facility] HospitalComment on above: Performed By: #### PRIYANK, , CMP #### [facility] ([id number]) [address], [address] [place], [place] [address]Pspxazbxzg (Bld) [Volume fraction]38.8 %Mkpxxy95-44ChzVhwbkk [facility] HospitalComment on above:Performed By: #### PRIYANK , CMP #### [facility] ([id number]) [address], [address] [place], [place] [address]Epasupmumb (Bld) [Mass/Vol]12.6 g/pAAafdsx34.7-15.5ProMedica [place] HospitalComment on above:Performed By: #### PRIYANK, , CMP #### [facility] ([id number]) [address], [address] [place], [place] [address]LCP (RBC) [Entitic mass]28.5 tlKcyllt84-98NjhOybslf [facility] HospitalComment on above:Performed By: #### CBCAriana, , CMP #### [facility] ([id number]) [address], [address] [place], [place] [address]RUQU (RBC) [Mass/Vol]32.4 g/rTSvizhj16-18UilJetqvw [facility] HospitalComment on above:Performed By: #### CBCAriana, , CMP #### [facility] ([id number]) [address], [address] [place], [place] [address]EVW (RBC) [Entitic vol]88 nQIwlgla16-966NklZovpjd [facility] HospitalComment on above:Performed By: #### PRIYANK, , CMP #### [facility] ([id number]) [address], [address] [place], [place] [address]Cpnxlhdd mean volume (Bld) [Entitic vol]7.5 fLNormal7-12 ProMSumma Health HospitalComment on above:Performed By: #### PRIYANK, , CMP #### [facility] ([id number]) [address], [address] [place], [place] [address]Yjdnrtyrn (Bld) [#/Vol]237 10*3/hPDlbtrt684-455VonWbsgsq [facility] HospitalComment on above:Performed By: #### PRIYANK, , CMP #### [facility] ([id number]) [address], [address] [place], [place] [address]HBW COUNT4.41 X10E12/LNormal3.80-5.20[facility] Comment on above:Performed By: #### PRIYANK, , CMP #### [facility] ([id number]) [address], [address] [place], [place] [address]OMM (Bld) [#/Vol]10.1 10*3/uLNormal4.0-11.0ProBarn[facility] HospitalComment on above:Performed By: #### PRIYANK, , CMP #### [facility] ([id number]) [address], [address] [place], [place] [address]Flunytyohal distribution width (RBC) [Ratio]17.4 %High11.5-15.0 ProMSumma Health HospitalComment on above:Performed By: #### 02093-1, CBCAriana, CMP #### [facility] ([id number]) [address], [address] [place], [place] [address]Pmspgvvfvs (Bld) [Volume fraction]36.6 %Xatzgw89-59OvpOwynwa [facility] HospitalComment on above:Performed By: #### 32599-9, CBCA, CMP #### [facility] ([id number]) [address], [address] [place], [place] [address]Jnihdyrqlk (Bld) [Mass/Vol]11.9 g/dDOipdba56.7-15.5ProMedica [facility] HospitalComment on above:Performed By: #### 91560-2, CBCA, CMP #### [facility] ([id number]) [address], [address] [place], [place] [address]KHE (RBC) [Entitic mass]28.7 wjCaypgv51-13TwoAjmefi [facility] HospitalComment on above:Performed By: #### 44285-5, CBCA, CMP #### [facility] ([id number]) [address], [address] [place], [place] [address]SFZA (RBC) [Mass/Vol]32.4 g/wIXhjptz21-85KtrZxjfxy [facility] HospitalComment on above:Performed By: #### 68348-4, CBCA, CMP #### [facility] ([id number]) [address], [address] [place], [place] [address]AGZ (RBC) [Entitic vol]89 eGJjxzoa56-879WsdZqejzq [facility] HospitalComment on above:Performed By: #### 74893-3, CBCA, CMP #### [facility] ([id number]) [address], [address] [place], [place] [address]Amobfqkq mean volume (Bld) [Entitic vol]6.9 fLLow7-12ProMedica [facility] HospitalComment on above:Performed By: #### 26203-2, CBCA, CMP #### [facility] ([id number]) [address] [place], [place] [address]Rcubggdcd (Bld) [#/Vol]212 10*3/tWEtokwr301-116WaqMisajo [facility] HospitalComment on above:Performed By: #### 93928-0, CBCA, CMP #### [facility] ([id number]) [address] [place], [place] [address]HQR COUNT4.13 X10E12/LNormal3.80-5.20ProWvumedicine Harrison Community Hospitalca [facility] Comment on above:Performed By: #### 97650-7, CBCA, CMP #### [facility] ([id number]) [address], [address] [place] [address]CEI (Bld) [#/Vol]10.4 10*3/uLNormal4.0-11.0ProWvumedicine Harrison Community Hospitalca [facility] HospitalComment on above:Performed By: #### 53792-2, CBCA, CMP #### [facility] ([id number]) [address], [facility] [address] [place], [place] [address]Vdhnnvsytlk distribution width (RBC) [Ratio]16.8 %High11.5-15.0 [facility] HospitalComment on above:Performed By: #### 05395-9, CBCA, CMP #### [facility] ([id number]) [address] [place], [place] [address]Zglimhibgz (Bld) [Volume fraction]38.9 %Xpwgby03-66TuoAnakly [facility] HospitalComment on above:Performed By: #### 94895-9, CBCA, CMP #### [facility] ([id number]) [address], [address] [place], [place] [address]Fzpivytyxw (Bld) [Mass/Vol]12.7 g/rJVfdkdo16.7-15.5ProMedica [facility] HospitalComment on above:Performed By: #### 02526-2, CBCA, CMP #### [facility] ([id number]) [address], [address] [place], [place] [address]NSU (RBC) [Entitic mass]28.5 iiZvhonf02-58NzkHhiugi [facility] HospitalComment on above:Performed By: #### 12723-7, CBCA, CMP #### [facility] ([id number]) [address], [address] [place], [place] [address]DSPW (RBC) [Mass/Vol]32.5 g/xRLywkuz48-12KpcBkbvke [place] HospitalComment on above:Performed By: #### 04147-5, CBCA, CMP #### [facility] ([id number]) [address] [place], [place] [address]MVE (RBC) [Entitic vol]88 bJTcyiit30-623AvaOnqubv [facility] HospitalComment on above:Performed By: #### 60686-4, CBCA, CMP #### [facility] ([id number]) [address], [address] [place], [place] [address]Qkaixaqm mean volume (Bld) [Entitic vol]7.0 fLNormal7-12 ProMcrestwood medical centera [facility] HospitalComment on above:Performed By: #### 92490-8, CBCA, CMP #### [facility] ([id number]) [address], [address] [place], [place] [address]Rpqrnwvif (Bld) [#/Vol]246 10*3/rHIchmtp549-973RaoHjphpe [facility] HospitalComment on above:Performed By: #### 23878-7, CBCA, CMP #### [facility] ([id number]) [address], [address] [place], [place] [address]GXB COUNT4.43 X10E12/LNormal3.80-5.20Pro[facility] Hospital Comment on above:Performed By: #### 00676-1, CBCA, CMP #### [facility] ([id number]) [address], [address] [place], [place] [address]LXE (Bld) [#/Vol]9.7 10*3/uLNormal4.0-11.0ProWvumedicine Harrison Community Hospitalca [facility] HospitalComment on above:Performed By: #### 17112-1, CBCA, CMP #### [facility] ([id number]) [address], [address] [place], [place] [address]Zbatxswoaca distribution width (RBC) [Ratio]17.4 %High11.5-15.0 [facility] HospitalComment on above:Performed By: #### 28218-3, CBCA, CMP #### [facility] ([id number]) [address], [address] [place], [place] [address]Uhncileazt (Bld) [Volume fraction]38.2 %Licruj10-80KrhIhskbk [place] HospitalComment on above:Performed By: #### 24157-2, CBCA, CMP #### [facility] ([id number]) [address] [place], [place] [address]Ahrsjukuoy (Bld) [Mass/Vol]12.4 g/tKVfkqmc97.7-15.5Pro[facility] HospitalComment on above:Performed By: #### 33288-7, CBCA, CMP #### [facility] ([id number]) [address] [place], [place] [address]OGK (RBC) [Entitic mass]28.8 wpExnlpv97-35UnqQzkbrb [facility] HospitalComment on above:Performed By: #### 35904-2, CBCA, CMP #### [facility] ([id number]) [address] [place], [place] [address]LXEM (RBC) [Mass/Vol]32.4 g/kEXpivgu95-81TrbJekwmf [facility] HospitalComment on above:Performed By: #### 97838-8, CBCA, CMP #### [facility] ([id number]) [address], [address] [place] [address]AVL (RBC) [Entitic vol]89 oPAryoig91-382FjnZupiya [facility] HospitalComment on above:Performed By: #### 14378-3, CBCA, CMP #### [facility] ([id number]) [address], [address] [place] [address]Diggjuyh mean volume (Bld) [Entitic vol]7.1 fLNormal7-12 [facility] HospitalComment on above:Performed By: #### 95311-8, CBCA, CMP #### [facility] ([id number]) [address], [address] [place] [address]Jzthfwygw (Bld) [#/Vol]238 10*3/tBMkxhfa777-699KznIsjmvw [facility] HospitalComment on above:Performed By: #### 58814-1, CBCA, CMP #### [facility] ([id number]) [address], [address] [place] [address]KJH COUNT4.31 X10E12/LNormal3.80-5.20[facility] Comment on above:Performed By: #### 14815-7, CBCA, CMP #### [facility] ([id number]) [address], [address] [place] [address]FKY (Bld) [#/Vol]7.8 10*3/uLNormal4.0-11.0ProWvumedicine [facility] Hospitalca [facility] HospitalComment on above:Performed By: #### 14314-2, CBCA, CMP #### [facility] ([id number]) [address], [address] [place] [address]Mdvpvugxlh Coagulation.derived (PPP) [Mass/Vol]on 04-18-2024 RWINQMTXPH561 mg/wWSceegg237-633PwaArwegx [place] HospitalComment on above: Performed By: #### PRIYANK, 64811-5, CMP #### [facility] ([id number]) [address], [address] [place], [place] [address]HOBRHILWEF564 mg/fBIbbqjj425-071XabCbmomj [facility] HospitalComment on above:Performed By: #### 32022-1, CBCA, CMP #### [facility] ([id number]) [address], [address] [place], [place] [address]SQRIAYYIWU126 mg/dHSczlwd386-789FiwRxezio [place] HospitalComment on above:Performed By: #### 55916-5, CBCA, CMP #### [facility] ([id number]) [address], [address] [place], [place] [address]LUELILPDUD701 mg/bRVjhizm159-410ZynLfowqt [place] HospitalComment on above:Performed By: #### 83812-1, CBCA, CMP #### [facility] ([id number]) [address], [address] [place], [place] [address]Mqzuiaz Glucometer (BldC) [Mass/Vol]on 41-06-4818Xojvccu [Mass/Vol]152 mg/pWMpib67-26NhwIizcxuMcKitrick HospitalGlucose [Mass/Vol]158 mg/dL Xpxv17-39EggWaaptpMcKitrick HospitalHeparin unfractionated Chromogenic method Qn (PPP)on 92-62-5444ZMIA XA UFH0.32 IU/mLNormal0.30-0.70Mc[facility] Hospital Comment on above:Result Comment: Optimal time for testing is 6 hrs post dosage This test is specific for monitoring patients on UFH, and is not recommended for use with other Anti-Xa medications.Performed By: #### PRIYANK, 40760-4, CMP #### [facility] ([id number]) [address], [address] [place], [place] [address]YXTLGGR AND INRon 48-57-4654YTW Coag (PPP) [Relative time]1.0 {INR}Normal0.8-1.1PProMedica [facility] Hospital HospitalComment on above:Performed By: #### PRIYANK, 21643-5, CMP #### [facility] ([id number]) [address], [address] [place], [place] [address]XH Coag (PPP) [Time]11.6 sNormal9.8-13.2ProMedDiley Ridge Medical Centero HospitalComment on above:Performed By: #### PRIYANK, 48404-6, CMP #### [facility] ([id number]) [address] [facility] [place], [place] [address]WHI Coag (PPP) [Relative time]1.0 {INR}Normal0.8-1.1ProMedThe University of [facility] Health Clear Lake Campusedo HospitalComment on above:Performed By: #### 92836-9, CBCA, CMP #### [facility] ([id number]) [address], [address] [place], [place] [address]JR Coag (PPP) [Time]11.8 sNormal9.8-13.2POhioHealth Dublin Methodist Hospitaledo HospitalComment on above:Performed By: #### 75956-1, CBCA, CMP #### [facility] ([id number]) [address], [address] [place], [place] [address]KLM Coag (PPP) [Relative time]1.0 {INR}Normal0.8-1.1ProMedThe [facility] of [facility] Campusedo HospitalComment on above:Performed By: #### 74145-8, CBCA, CMP #### [facility] ([id number]) [address], [address] [place], [place] [address]VF Coag (PPP) [Time]11.6 sNormal9.8-13.2ProMedselect specialty hospital Choudhary HospitalComment on above:Performed By: #### 33179-8, CBCA, CMP #### [facility] ([id number]) [address], [address] [place] [address]TKG Coag (PPP) [Relative time]1.0 {INR}Normal0.8-1.1PProMedica Defiance Regional Hospital HospitalComment on above:Performed By: #### 10908-2, CBCA, CMP #### [facility] ([id number]) [address], [address] [place], [place] [address]AT Coag (PPP) [Time]11.3 sNormal9.8-13.2PProMedica Defiance Regional Hospital HospitalComment on above:Performed By: #### 39546-3, CBCA, CMP #### [facility] ([id number]) [address], [address] [place] [address]mTOX Coag (PPP) [Time]on 85-24-1952zBEP Coag (Bld) [Time]63 s Alhj96-58PnbErpnfvPike Community HospitalComment on above:Performed By: #### PRIYANK, 53384-0, CMP #### [facility] ([id number]) [address], [address] [place], [place] [address]uTZC Coag (Bld) [Time]35 cQkuvfq50-99FtrNaevmqMcKitrick Hospital Comment on above:Performed By: #### PRIYANK, 14421-3, CMP #### [facility] ([id number]) [address], [address] [place], [place] [address]uSFU Coag (Bld) [Time]37 mFyhioy91-02AipIagfvmMcKitrick Hospital Comment on above:Performed By: #### 97408-0, CBCA, CMP #### [facility] ([id number]) [address], [address] [place], [place] [address]zDWF Coag (Bld) [Time]37 uXrfktw07-28YabLbfhakMcKitrick Hospital Comment on above:Performed By: #### 54621-4, CBCA, CMP #### [facility] ([id number]) [address], [address] [place], [place] [address]RBT AND AUTO DIFFon 30-22-0357VSQIQDAX BASOPHIL0.1 X10E9/LNormal 0.0-0.2ProMedSanger General HospitalComment on above:Performed By: #### 34575-1, 08118-9, CMP, 66172-8, CBCA, 56824-2, PINR ####[facility] ([id number])[address] [place] [address] 66[address]BKOQMAZO NEUTROPHIL7.8 X10E9/LHigh1.5-6.6ProGrace Medical CenterComment on above: Performed By: #### 42700-5, 91437-3, CMP, 36728-1, CBCA, 93864-5, PINR ####[facility] ([id number])[address] [place] [address]266Sntmoibnd/100 WBC (Bld)1.4 %NormalProGrace Medical CenterComment on above:Performed By: #### 23535-6, 82133-2, CMP, 47903-4, CBCA, 74420-4, PINR ####[facility] ([id number])[address] [place] [address] 26403Iqbbinuhxlj (Bld) [#/Vol]0.4 10*3/uLNormal 0.0-0.4Fisher-Titus Medical CenterComment on above:Performed By: #### 01855-7, 14888-1, CMP, 99307-4, CBCA, 03754-0, PINR ####[facility] ([id number])[address] [place] [address] 04654Uhxjhjnjrju/100 WBC (Bld)4.1 %NormalProGrace Medical CenterComment on above:Performed By: #### 13578-7, 30532-1, CMP, 52325-6, CBCA, 78182-6, PINR ####[facility] ([id number])[address] [place] [address] 72082 Erythrocyte distribution width (RBC) [Ratio]17.5 %High11.5-15.0Fisher-Titus Medical CenterComment on above:Performed By: #### 99034-2, 13728-1, CMP, 21940-2, CBCA, 39771-6, PINR ####[facility] ([id number])[address] [place] [address] 85356Bvkkdorjhp (Bld) [Volume fraction]39.1 % Mvcyqi28-26UrxHdxbyqGrace Medical CenterComment on above:Performed By: #### 40530- 4, 36314-8, CMP, 69270-7, CBCA, 65701-2, PINR ####[facility] ([id number])[address] [place] [address] 80162Yutjnlrytl (Bld) [Mass/Vol]13.0 g/jOGpywqc21.7-15.5PMartins Ferry HospitalComment on above: Performed By: #### 16367-7, 26776-3, CMP, 50299-5, CBCA, 71799-2, PINR ####[facility] ([id number])[address] [place] [address] 94063Kqoriylwgbf (Bld) [#/Vol]1.1 10*3/uLNormal1.0-3.5PMartins Ferry HospitalComment on above:Performed By: #### 53361-7, 62804-5, CMP, 35448-3, CBCA, 20664-2, PINR ####[facility] ([id number])[address] [place] [address] 67874Jabxctlinxw/100 WBC (Bld)11.4 %Normal ProMedicScripps Memorial HospitalComment on above:Performed By: #### 75238-0, 84070-9, CMP, 89354-0, CBCA, 17595-7, PINR ####[facility] ([id number])[address] [place] [address] 86004EJY (RBC) [Entitic mass]29.0 pg Wyzldx33-43OsvUjfjeiGrace Medical CenterComment on above:Performed By: #### 20044- 4, 17379-2, CMP, 04160-6, CBCA, 69235-0, PINR ####[facility] ([id number])[address] [place] [address] 16611SZMY (RBC) [Mass/Vol]33.2 g/oZNtuzmv80-73AumHawxfrGrace Medical CenterComment on above: Performed By: #### 42801-4, 97836-4, CMP, 16316-8, CBCA, 76764-3, PINR ####[facility] ([id number])[address] [place] [address] 77871JBK (RBC) [Entitic vol]87 bPHjkexq15-689BanBrpxhi [facility]ont HospitalComment on above:Performed By: #### 05853-6, 43744-5, CMP, 86298-9, CBCA, 89005-5, PINR ####[facility] ([id number])[address] [place] [address] 29923Pkodypmol (Bld) [#/Vol]0.5 10*3/uLNormal 0-0.9Fisher-Titus Medical CenterComment on above:Performed By: #### 04749-6, 40386-4, CMP, 82926-5, CBCA, 33938-4, PINR ####[facility] ([id number])[address] [place], [place] [address]Monocytes/100 WBC (Bld)4.9 %NormalProGrace Medical CenterComment on above:Performed By: #### 85165-7, 33910-4, CMP, 30645-5, CBCA, 92049-6, PINR ####[facility] ([id number])[address] [place] [address] 81728 Neutrophils/100 WBC (Bld)78.2 %NormalProGrace Medical CenterComment on above: Performed By: #### 58918-2, 60181-0, CMP, 04821-0, CBCA, 75162-0, PINR ####[facility] ([id number])[address] [place] [address] 74657Bnzqhjwq mean volume (Bld) [Entitic vol]6.9 fLLow7-12 [facility] Park HospitalComment on above:Performed By: #### 98569-6, 81240-4, CMP, 31941-5, CBCA, 48788-5, PINR ####[facility] ([id number])[address] [place] [address] 36222Wtskorprn (Bld) [#/Vol]316 10*3/oHLquniw763-418EyqWjcnsm [facility] HospitalComment on above:Performed By: #### 29959-9, 59841-2, CMP, 79912-7, CBCA, 01751-6, PINR ####[facility] ([id number])[address] [place] [address] 26510XVC COUNT4.47 X10E12/LNormal3.80-5.20ProGrace Medical CenterComment on above: Performed By: #### 25068-4, 92513-4, CMP, 44899-5, CBCA, 40743-0, PINR ####[facility] ([id number])[address] [place] [address] 54847GYN (Bld) [#/Vol]10.0 10*3/uLNormal4.0-11.0ProGrace Medical CenterComment on above:Performed By: #### 16044-1, 70553-0, CMP, 99093-8, CBCA, 20031-1, PINR ####[facility] ([id number])[address] [place] [address], [place], [place] [address]VIDBOODOFKBSZ METABOLIC PANELon 20-84-0547Pugavjk [Mass/Vol]3.4 g/dLNormal3.2-5.3PUniversity Hospitals Samaritan [facility] Comment on above:Performed By: #### 68830-0, CBCA, CMP #### [facility] ([id number]) [address], [address] [place], [place] [address]ZEI [Catalytic activity/Vol]85 U/PWipqpo20-969ShxHviwyb [place] HospitalComment on above:Performed By: #### 92572-9, CBCA, CMP #### [facility] ([id number]) [address], [address] [place], [place] [address]HVB [Catalytic activity/Vol]9 U/LNormal0-31PProMedica Defiance Regional Hospital HospitalComment on above:Performed By: #### 13540-6, CBCA, CMP #### [facility] ([id number]) [address], [address] [place], [place] [address]Dmvgf gap [Moles/Vol]7 mmol/LNormal5-15[facility] Comment on above:Performed By: #### 78661-5, CBCA, CMP #### [facility] ([id number]) [address], [address] [place], [place] [address]MGB [Catalytic activity/Vol]21 U/LNormal0-41ProBarnesville Hospital HospitalComment on above:Performed By: #### 10375-5, CBCA, CMP #### [facility] ([id number]) [address], [address] [place], [place] [address]Gjepbxtwe [Mass/Vol]0.3 mg/dLNormal0.3-1.2ProMedSCCI Hospital Lima HospitalComment on above:Performed By: #### 77870-7, CBCA, CMP #### [facility] ([id number]) [address], [address] [place], [place] [address]Zbalgoi [Mass/Vol]8.5 mg/dLNormal8.5-10.5PUniversity Hospitals Samaritan Medical CenterComment on above:Performed By: #### 25606-9, CBCA, CMP #### [facility] ([id number]) [address], [address] [place], [place] [address]Mrldoqrm [Moles/Vol]102 mmol/WOmyemv42-518ZvpCzdvzb [place] HospitalComment on above:Performed By: #### 47412-4, CBCA, CMP #### [facility] ([id number]) [address], [address] [place], [place] [address]LC9 [Moles/Vol]29 mmol/EPrznib65-85AqbSreehf [facility] Comment on above:Performed By: #### 36366-5, CBCA, CMP #### [facility] ([id number]) [address], [address] [place], [place] [address]Lsyfppwedn [Mass/Vol]0.76 mg/dLNormal0.40-1.00ProPike Community HospitalComment on above:Result Comment: METHOD TRACEABLE TO IDMS STANDARD Performed By: #### 42252-1, CBCA, CMP #### [facility] ([id number]) [address], [address] [place], [place] [address]LJM/1.73 sq M.predicted among non-blacks MDRD (S/P/Bld) [Vol rate/Area]87 mL/min/{1.73_m2}Normal>59ProPike Community HospitalComment on above: Result Comment: Reported eGFR is based on the CKD-EPI 2020 equation that does not use a race coefficient.Performed By: #### 55284-7, CBCA, CMP #### [facility] ([id number]) [address], [address] [place], [place] [address]Jfugxcc [Mass/Vol]146 mg/nPTxgr37-83NsjPvlzzlPike Community Hospital Comment on above:Performed By: #### 26562-6, CBCA, CMP #### [facility] ([id number]) [address], [address] [place], [place] [address]Hbvphkhbl [Moles/Vol]4.4 mmol/LNormal3.5-5.0ProBarnesville Hospital HospitalComment on above:Performed By: #### 56231-1, CBCA, CMP #### [facility] ([id number]) [address], [address] [place], [place] [address]Rkhtsqp [Mass/Vol]6.2 g/dLNormal6.0-8.0[facility] Comment on above:Performed By: #### 62956-2, CBCA, CMP #### [facility] ([id number]) [address], [address] [place], [place] [address]Pzhhwb [Moles/Vol]138 mmol/FEbgnch567-945AaoDuxamc [place] HospitalComment on above:Performed By: #### 47217-1, CBCA, CMP #### [facility] ([id number]) [address], [address] [place], [place] [address]Xukt nitrogen [Mass/Vol]13 mg/dLNormal5-27ProPike Community HospitalComment on above:Performed By: #### 10249-6, CBCA, CMP #### [facility] ([id number]) [address], [address] [place], [place] [address]Yojxbsu [Mass/Vol]3.5 g/dLNormal3.2-5.3ProMedSanger General HospitalComment on above:Performed By: #### 82137-6, 57532-9, CMP, 09292-4, CBCA, 87239-0, PINR ####[facility] ([id number])[address] [place] [address]OOX [Catalytic activity/Vol]89 U/LNormal 39-130ProGrace Medical CenterComment on above:Performed By: #### 59565-8, 22439-1, CMP, 54340-5, CBCA, 16118-1, PINR ####[facility] ([id number])[address] [place] [address], [place] [address]BEV [Catalytic activity/Vol]12 U/LNormal0-31ProMedSanger General HospitalComment on above: Performed By: #### 55675-5, 46809-6, CMP, 69322-6, CBCA, 18437-8, PINR ####[facility] ([id number])[address] [place] [address]Rweou gap [Moles/Vol]11 mmol/LNormal5-15ProGrace Medical CenterComment on above:Performed By: #### 33463-0, 11168-4, CMP, 34110-3, CBCA, 24276-4, PINR ####[facility] ([id number])[address] [place] [address]DPT [Catalytic activity/Vol]21 U/LNormal0-41 [facility] HospitalComment on above:Performed By: #### 15745-4, 42724-6, CMP, 36820-6, CBCA, 19880-9, PINR ####[facility] ([id number])[address] [place] [address]Gasctehxe [Mass/Vol]0.5 mg/dL Normal0.3-1.2ProMedSanger General HospitalComment on above:Performed By: #### 16601-3, 86814-6, CMP, 34886-0, CBCA, 96619-8, PINR ####[facility] ([id number])[address] [place] [address]Ggavfhw [Mass/Vol]9.0 mg/dLNormal8.5-10.5ProMedica Jarvisburg HospitalComment on above: Performed By: #### 66853-8, 52303-8, CMP, 65599-3, CBCA, 23462-7, PINR ####[facility] ([id number])[address] [place] [address], [place] [address]Ssilbcdk [Moles/Vol]100 mmol/AAsdakh22-492VgyPtiauhGrace Medical CenterComment on above:Performed By: #### 03793-7, 19937-1, CMP, 54509-5, CBCA, 65569-6, PINR ####[facility] ([id number])[address] [place] [address], [place] [address]RU4 [Moles/Vol]24 mmol/JUwhife17-51 ProMLos Robles Hospital & Medical CenterComment on above:Performed By: #### 60365-9, 90826-4, CMP, 91083-9, CBCA, 08040-7, PINR ####[facility] ([id number])[address] [place] [address], [place] [address]Xawgcooumc [Mass/Vol]0.97 mg/dL Normal0.40-1.00ProGrace Medical CenterComment on above:Result Comment: METHOD TRACEABLE TO IDMS STANDARDPerformed By: #### 86772-3, 72867-4, CMP, 37192-1, CBCA, 46189-7, PINR ####[facility] ([id number])[address] [place] [address], [place] [address]DVM/1.73 sq M.predicted among non-blacks MDRD (S/P/Bld) [Vol rate/Area]65 mL/min/{1.73_m2}Normal>59ProGrace Medical CenterComment on above:Result Comment: Reported eGFR is based on theCKD-EPI 2020 equation that doesnot use a race coefficient.Performed By: #### 42884-9, 84207-7, CMP, 21697-0, CBCA, 36759-2, PINR ####[facility] ([id number])[address] [place] [address], [place] [address]Bmiqton [Mass/Vol]151 mg/zTEpht14-62PokVlplimGrace Medical CenterComment on above:Performed By: #### 70626-8, 83564-4, CMP, 02264-1, CBCA, 86821-0, PINR ####[facility] ([id number])[address] [place] [address], [place] [address]Ttllkdmde [Moles/Vol]4.2 mmol/LNormal3.5-5.0[facility] Comment on above:Performed By: #### 08617-4, 16639-4, CMP, 77519-9, CBCA, 25398- 5, PINR ####[facility] ([id number])[address] [place] [address]Fbeqfqr [Mass/Vol]7.0 g/dLNormal6.0-8.0ProGrace Medical CenterComment on above:Performed By: #### 43267-9, 34271-6, CMP, 92480-9, CBCA, 51596-5, PINR ####[facility] ([id number])[address] [place] [address]Ktpcrn [Moles/Vol]135 mmol/ANiloqz022-857 ProMLos Robles Hospital & Medical CenterComment on above:Performed By: #### 75513-2, 83043-8, CMP, 98994-2, CBCA, 92475-7, PINR ####[facility] ([id number])[address] [place] [address], [place] [address]Rzkm nitrogen [Mass/Vol]17 mg/dL Normal5-27ProGrace Medical CenterComment on above:Performed By: #### 75570-7, 20260-5, CMP, 74230-8, CBCA, 31005-3, PINR ####[facility] ([id number])[address] [place] [address] 61912CG CTA ABD AORTA W RUNOFFon 70-79-0008EP CTA ABD AORTA W RUNOFFNormalProGrace Medical Center Fibrin D-dimer DDU (PPP) [Mass/Vol]on 04-17-2024D KWXEC6961 ng/mL DDUHigh<255 [facility] HospitalComment on above:Result Comment: Results >=255ng/mL DDU: Results may beindicative of the presence of VTE. The useof the Wells score and further diagnostictests should be considered. Elevated D-Dimerlevels can alsobe associated with DIC,neoplasm, , trauma and liver disease.Elevated levels of rheumatoid factor may leadto an overestimation of the D-Dimer level.Performed By: #### 91328-0, 63118-1, CMP, 69298-5, CBCA, 88752-8, PINR ####[facility] ([id number])[address] [place] [address]Qnfalxejsu Coagulation.derived (PPP) [Mass/Vol]on 80-77-5966DJRBWCYNOJ411 mg/oFSyefda692-247PidNrsllu [place] HospitalComment on above:Performed By: #### 68854-1, CBCA, CMP #### [facility] ([id number]) [address] [place], [place] [address]KSOSHWMWIV586 mg/mJUgroyb418-899MvjWicubo [place] HospitalComment on above:Performed By: #### 34134-7, 58620-0, PINR #### [facility] ([id number]) [address] [place], [place] [address]Nwiewdj (P nathalie) [Moles/Vol]on 80-19-6957QUSJWGC W/REFLEX0.5 mmol/LNormal0.4-2.0ProBarnesville Hospital HospitalComment on above:Result Comment: Result did not trigger repeat Lactate, re-order if needed.Performed By: #### 94855-0, CBCA, CMP #### [facility] ([id number]) [address] [place], [place] [address]QBDCJZQYWox 01-62-5447Mxvqsjbfe [Mass/Vol]1.9 mg/dLNormal1.8-2.6 [facility] HospitalComment on above:Performed By: #### 63334-9, CBCA, CMP #### [facility] ([id number]) [address] [place], [place] [address]Wnwwjemcrit peptide B [Mass/Vol]on 04-57-1718Nxqdpnckupw peptide B (Bld) [Mass/Vol]99 pg/mLNormal<100.0ProWvumedicine Harrison Community Hospitalca Baldwin Park HospitalComment on above:Performed By: #### 23805-0, 96692-8, CMP, 33941-0, CBCA, 85502-7, PINR ####[facility] ([id number])[address] [place] [address]AMEZTYJPFGme 16-50-3667Rvlqfpnpq [Mass/Vol]4.1 mg/dLNormal 2.4-4.9ProWvumedicine Harrison Community Hospitalca Natoma HospitalComment on above:Performed By: #### 39435-6, CBCA, CMP #### [facility] ([id number]) [address] [place], [place] [address]OSTMAHB AND INRon 46-78-3681WPW Coag (PPP) [Relative time]1.0 {INR}Normal0.8-1.1ProMedSCCI Hospital Lima HospitalComment on above:Performed By: #### 26028-7, CBCA, CMP #### [facility] ([id number]) [address], [address] [place], [place] [address]LH Coag (PPP) [Time]11.7 sNormal9.8-13.2ProMedSCCI Hospital Lima HospitalComment on above:Performed By: #### 09336-0, CBCA, CMP #### [facility] ([id number]) [address], [address] [place], [place] [address]PW Coag (PPP) [Time]11.6 sNormal9.8-13.2PUniversity Hospitals Samaritan Medical CenterComment on above:Performed By: #### 31990-0, CBCA, CMP #### [facility] ([id number]) [address] [place], [place] [address]TLC Coag (PPP) [Relative time]1.1 {INR}Normal0.8-1.1PUniversity Hospitals Samaritan Medical CenterComment on above:Performed By: #### 38469-5, 31306-2, PINR #### [facility] ([id number]) [address], [address] [place], [place] [address]CL Coag (PPP) [Time]13.3 sHigh9.8-13.2PUniversity Hospitals Samar[facility] Medical Center Comment on above:Performed By: #### 52645-2, 96604-8, PINR #### [facility] ([id number]) [address] [place], [place] [address]WBL Coag (PPP) [Relative time]1.1 {INR}Normal0.8-1.1PMartins Ferry HospitalComment on above:Performed By: #### 03796-7, 59323-0, CMP, 87786-0, CBCA, 66274-9, PINR ####[facility] ([id number])[address] [place] [address]34RN Coag (PPP) [Time]12.8 sNormal 9.8-13.2PMartins Ferry HospitalComment on above:Result Comment: NEW REFERENCE RANGEPerformed By: #### 25151-0, 38558-7, CMP, 85479-1, CBCA, 34017-0, PINR ####[facility] ([id number])[address] [place] [address]Mzubjulc I.cardiac High sensitivity method [Mass/Vol]on 51 HOUR TROP I, HIGH SENSITIVITY5 ng/LNormal<16ProGrace Medical CenterComment on above:Performed By: #### 01131-2 ####[facility] ([id number])[address] [place] [address] 73715UGXGDOJN I, HIGH SENSITIVITY4 ng/LNormal<16ProGrace Medical CenterComment on above: Performed By: #### 96716-1, 23527-1, CMP, 75620-5, CBCA, 89609-2, PINR ####[facility] ([id number])[address] [place] [address] 60002tEEM Coag (PPP) [Time]on 49-55-5228pERE Coag (Bld) [Time] 53 hRaiq64-37JjqCyreusMcKitrick HospitalComment on above:Performed By: #### 11539- 9, CBCA, CMP #### [facility] ([id number]) [address], [address] [place], [place] [address]nTVC Coag (Bld) [Time]117 sCritically lyno98-15AysMxeimuMcKitrick HospitalComment on above:Performed By: #### 00431-2, 92286-4, PINR #### [facility] ([id number]) [address], [address] [place], [place] [address]dSXF Coag (Bld) [Time]41 cYzuv05-01VfxYmpudkFisher-Titus Medical Center Comment on above:Result Comment: NEW REFERENCE RANGEPerformed By: #### 76325-8, 69449-6, CMP, 69652-6, CBCA, 77992-3, PINR ####[facility] ([id number])[address] [place] [address]64[address]JBGZ/FLU A+B/RSV by NAAT/Molecularon 63-97-3135NOQO/FLU A+B/RSV by NAAT/MolecularNormalProMedica Jarvisburg HospitalComment on above:Performed By: #### COVFLR ####[facility] ([id number])[address] [place] [address], [place] [address]DOVEQ METABOLIC PANLon 85-17-5882Xaxlv gap [Moles/Vol]10 mmol/LNormal5-15ProGrace Medical CenterComment on above:Performed By: #### KYLE YOST, 84237-9 ####[facility] ([id number])[address] [place] [address], [place] [address]Jzbxwle [Mass/Vol]9.1 mg/dLNormal8.5-10.5PMartins Ferry HospitalComment on above:Performed By: #### KYLE YOST, 44209-3 ####[facility] ([id number])[address] [place] [address], [place] [address]Ztoowcfv [Moles/Vol]104 mmol/ETnalkr30-964SkmJmdvqkGrace Medical CenterComment on above:Performed By: #### KYLE YOST, 09341-9 ####[facility] ([id number])[address] [place] [address], [place] [address]WH0 [Moles/Vol]21 mmol/VXog91-24NviLsaprfMartins Ferry HospitalComment on above:Performed By: #### KYLE YOST, 35698-8 ####[facility] ([id number])[address] [place] [address], [place] [address]Rsencphacb [Mass/Vol]0.97 mg/dLNormal 0.40-1.00Fisher-Titus Medical CenterComment on above:Result Comment: METHOD TRACEABLE TO IDMS STANDARDPerformed By: #### KYLE YOST, 68432-8 ####[facility] ([id number])[address] [place] [address]75[address]CXE/1.73 sq M.predicted among non-blacks MDRD (S/P/Bld) [Vol rate/Area]65 mL/min/{1.73_m2}Normal>59ProGrace Medical CenterComment on above:Result Comment: Reported eGFR is based on theCKD-EPI 2020 equation that doesnot use a race coefficient.Performed By: #### KYLE YOST, 36010-7 ####[facility] ([id number])[address] [place] [address], [place] [address]Jchmrcw [Mass/Vol]115 mg/sJCkjl98-48IxvGqnbbfGrace Medical CenterComment on above:Performed By: #### KYLE YOST, 31866-3 ####[facility] ([id number])[address] [place] [address]Nmtbtyfkr [Moles/Vol]4.3 mmol/LNormal 3.5-5.0ProGrace Medical CenterComment on above:Performed By: #### KYLE YOST, 42953-9 ####[facility] ([id number])[address] [place] [address], [place] [address]Polltw [Moles/Vol]135 mmol/ERvtovy935-670UikRljuos Fremont HospitalComment on above:Performed By: #### KYLE YOST, 05044-7 ####[facility] ([id number])[address] [place] [address] 07[address]Tqbw nitrogen [Mass/Vol]17 mg/dLNormal5-27ProGrace Medical CenterComment on above:Performed By: #### KYLE YOST, 06760-1 ####[facility] ([id number])[address] [place] [address], [place] [address]WUC AND AUTO DIFF on 48-26-4260KZSQZPJL BASOPHIL0.1 X10E9/LNormal0.0-0.2PMartins Ferry Hospital Comment on above:Performed By: #### KYLE YOST, 33492-3 ####[facility] ([id number])[address] [place] [address] 53898LPFEMFRL NEUTROPHIL6.7 X10E9/LHigh1.5-6.6ProGrace Medical CenterComment on above: Performed By: #### KYLE YOST, 70968-7 ####[facility] ([id number])[address] [place] [address] 53895Jystvahsa/100 WBC (Bld)1.5 %NormalProGrace Medical CenterComment on above:Performed By: #### KYLE YOST, 38818-6 ####[facility] ([id number])[address] [place] [address] 60194Chxhzwzvuju (Bld) [#/Vol]0.5 10*3/uLHigh 0.0-0.4ProGrace Medical CenterComment on above:Performed By: #### KYLE YOST, 68893-8 ####[facility] ([id number])[address] [place] [address] 57420Wkompjxfzdz/100 WBC (Bld)5.3 %NormalFisher-Titus Medical CenterComment on above:Performed By: #### KYLE YOST, 93060-9 ####[facility] ([id number])[address] [place] [address] 97941Haocmstitlx distribution width (RBC) [Ratio]16.9 %High11.5-15.0ProGrace Medical CenterComment on above:Performed By: #### CBCKYLE Lane, 95047-6 ####[facility] ([id number])[address] [place] [address] 82759Oibjolxqhi (Bld) [Volume fraction]39.4 %Nfqpzv99-66 [facility] HospitalComment on above:Performed By: #### KYLE YOST, 83089-7 ####[facility] ([id number])[address] [place] [address] 35696Mqupgvlort (Bld) [Mass/Vol]12.9 g/aRPkwakr07.7-15.5 [facility] HospitalComment on above:Performed By: #### KYLE YOST, 25906-2 ####[facility] ([id number])[address] [place] [address] 05364Gnvtwrzcmhj (Bld) [#/Vol]1.9 10*3/uLNormal1.0-3.5Pro[facility] Park HospitalComment on above:Performed By: #### KYLE YOST, 85502-3 ####[facility] ([id number])[address] [place] [address] 03413Pldlzvslmzl/100 WBC (Bld)18.9 %NormalProGrace Medical CenterComment on above:Performed By: #### KYLE YOST, 51221-2 ####[facility] ([id number])[address] [place] [address] 96835RRK (RBC) [Entitic mass]29.0 hrXpohax35-19MhwSqkenqFisher-Titus Medical CenterComment on above:Performed By: #### KYLE YOST, 91696-2 ####[facility] ([id number])[address] [place] [address] 98459UNDM (RBC) [Mass/Vol]32.7 g/mRDqmnny56-67LahEvtjntGrace Medical CenterComment on above: Performed By: #### KYLE YOST, 79086-1 ####[facility] ([id number])[address] [place] [address] 37332OYT (RBC) [Entitic vol]89 gMNzgblg44-051NntOxsjcf Fremont HospitalComment on above: Performed By: #### KYLE YOST, 37308-7 ####[facility] ([id number])[address] [place] [address] 07191Mbwinywow (Bld) [#/Vol]0.7 10*3/uLNormal0-0.9Fisher-Titus Medical CenterComment on above: Performed By: #### KYLE YOST, 74804-8 ####[facility] ([id number])[address] [place] [address] 19813Fddmulydw/100 WBC (Bld)6.7 %NormalProGrace Medical CenterComment on above:Performed By: #### KYLE YOST, 08347-1 ####[facility] ([id number])[address] [place] [address] 07318Mxmbozeorha/100 WBC (Bld)67.6 %Normal ProMLos Robles Hospital & Medical CenterComment on above:Performed By: #### KYLE YOST, 31892-2 ####[facility] ([id number])[address] [place] [address] 68986Jaebtzck mean volume (Bld) [Entitic vol]7.2 fLNormal7-12 Fisher-Titus Medical CenterComment on above:Performed By: #### KYLE YOST, 30960-8 ####[facility] ([id number])[address] [place] [address] 62049Oylrgghsi (Bld) [#/Vol]292 10*3/fTGktrlp667-965EbzEmuwjj [facility]ont HospitalComment on above:Performed By: #### CBCAriana, BMP, 05180-8 ####[facility] ([id number])[address] [place] [address] 04410HDK COUNT4.45 X10E12/LNormal3.80-5.20ProGrace Medical CenterComment on above:Performed By: #### PRIYANK, BMP, 20163-0 ####[facility] ([id number])[address] [place] [address] 61655NDC (Bld) [#/Vol]9.9 10*3/uLNormal4.0-11.0Fisher-Titus Medical CenterComment on above:Performed By: #### KYLE YOST, 62189-3 ####[facility] ([id number])[address] [place] [address] 26028CV CTA ABD AND PELVISon 39-90-6524VQ CTA ABD AND PELVISNormalProWvumedicine Harrison Community Hospitalca Baldwin Park HospitalCT CTA CHESTon 75-70-3607YD CTA CHESTNormalFisher-Titus Medical CenterTroponin I.cardiac High sensitivity method [Mass/Vol]on HOUR TROP I, HIGH SENSITIVITY4 ng/LNormal<16ProGrace Medical CenterComment on above:Performed By: #### 61400-1 ####[facility] ([id number])[address] [place] [address] 98653BOCFKUKI I, HIGH SENSITIVITY3 ng/LNormal<16ProGrace Medical CenterComment on above:Performed By: #### KYLE YOST, 46939-1 ####[facility] ([id number])[address] [place] [address] 65040YGLQ/FLU A+B/RSV by NAAT/Molecularon 42-66-2546WUVU/FLU A+B/RSV by NAAT/MolecularNormalFisher-Titus Medical CenterComment on above: Performed By: #### COVFLR ####[facility] ([id number])[address] [place] [address] 88654AZ CHEST 1 VWon 22-39-7904HY CHEST 1 VW NormalFisher-Titus Medical CenterBasi Metabolic PanelOrdered By: Luis Fernando Strauss on 38-87-7038Doauo gap [Moles/Vol]10.8 mmol/LNormal6.0-15.0[facility]. John Medical CenterComment on above:Performed By: #### BMP #### [facility] [address] [place] [address] USACalcium [Mass/Vol]8.9 mg/dLNormal8.6-10.3FWilson HealthComment on above:Performed By: #### BMP #### [facility] [address] [place] [id number] USAChloride [Moles/Vol]98 mmol/MBxsxpc26-239OoheckyemUniversity Hospitals St. John Medical CenterComment on above:Performed By: #### BMP #### [facility] [address] [place] [address] USACO2 [Moles/Vol]35.0 mmol/LHigh21.0-31.0[facility] John Medical CenterComment on above:Performed By: #### BMP #### [facility] [address] [place] [address] USACreatinine [Mass/Vol]0.89 mg/dLNormal0.60-1.20[facility]. John Medical CenterComment on above:Performed By: #### BMP #### [facility] [address] [place] [address] USAGlucose [Mass/Vol]95 mg/vYVgkaxf29-669SaobcmjfuUniversity Hospitals St. John Medical CenterComment on above:Result Comment: Random Glucose Reference Range is dependent on time and content of last meal. Glucose of more than 200 mg/dL in a nonstressed, ambulatory subject supports the diagnosis of Diabetes Mellitus. ADA recommended reference rangePerformed By: #### BMP #### [facility] [address] [place] [address] USAADA recommended reference rangeRandom Glucose Reference Range is dependent on time and content of last meal. Glucose of more than 200 mg/dL in a nonstressed, ambulatory subject supports the diagnosisof Diabetes Mellitus.Potassium [Moles/Vol]4.8 mmol/LNormal3.5-5.1FWilson HealthComment on above:Performed By: #### BMP #### [facility] [address] [place] [id number] USASodium [Moles/Vol]139 mmol/EFugbbv829-085AubfnqdxcUniversity Hospitals St. John Medical CenterComment on above:Performed By: #### BMP #### [place] [address] USAUrea nitrogen [Mass/Vol]11 mg/dLNormal7-[facility] St. John Medical CenterComment on above:Performed By: #### BMP #### [place] [address] USABasic Metabolic Panelon 90-66-2767Yhbbtpisca Clr Calc Fjeegmbx89.49NormBayfront Health St. Petersburg Emergency Room Physician GroupComment on above:Result Comment: PERFORMED BY: [place] [address] PATHOLOGIST GASTROENTEROLOGIST JOSÉ MIGUEL RON M.D.Performed By: #### BMP #### [place] [address] USAGFR/1.73 sq M.predicted MDRD (S/P/Bld) [Vol rate/Area] mL/min/{1.73_m2}NormalThe [facility] Physician [facility] State HospitalComment on above:Performed By: #### BMP #### [place] [address] USAComplete Blood Count Auto DiffOrdered By: Ziggy Barraza on 74-84-6744Vdravtcbv (Bld) [#/Vol]0.1 10*3/uLNormal0.0-0.2FWilson HealthComment on above:Result Comment: PERFORMED BY: [place] [address] PATHOLOGIST GASTROENTEROLOGIST JOSÉ MIGUEL RON M.D.Performed By: #### RESP PANEL UPP., BIOFIRECOVNOTDE #### [place] [address] USABasophils/100 WBC (Bld)2.4 %Normal.[facility] John Medical CenterComment on above:Performed By: #### RESP PANEL UPP., BIOFIRECOVNOTDE #### [place] [address] USAEosinophils (Bld) [#/Vol]0.2 10*3/uLNormal0.0-0.[address] John Medical CenterComment on above:Performed By: #### RESP PANEL UPP., BIOFIRECOVNOTDE #### [place] [address] USAEosinophils/100 WBC (Bld)4.2 %Normal.[facility] John Medical CenterComment on above:Performed By: #### RESP PANEL UPP., BIOFIRECOVNOTDE #### [place] [address] USAErythrocyte distribution width (RBC) [Ratio]19.9 %High 11.9-15.3FWilson HealthComment on above:Performed By: #### RESP PANEL UPP., BIOFIRECOVNOTDE #### [place] [address] USAHematocrit (Bld) [Volume fraction]27.5 %Low34.0-46.[address] John Medical CenterComment on above:Performed By: #### RESP PANEL UPP., BIOFIRECOVNOTDE #### [place] [address] USAHemoglobin (Bld) [Mass/Vol]8.9 g/dLLow11.8-15.4FWilson HealthComment on above:Performed By: #### RESP PANEL UPP., BIOFIRECOVNOTDE #### [place] [address] USALymphocytes (Bld) [#/Vol]1.0 10*3/uLNormal1.00-4.[address] John Medical CenterComment on above:Performed By: #### RESP PANEL UPP., BIOFIRECOVNOTDE #### [place] [address] USALymphocytes/100 WBC (Bld)21.7 %Normal.[facility] John Medical CenterComment on above:Performed By: #### RESP PANEL UPP., BIOFIRECOVNOTDE #### Fire[address]H (RBC) [Entitic mass]30.5 koCkzoul04.7-34.3FWilson HealthComment on above:Performed By: #### RESP PANEL UPP., BIOFIRECOVNOTDE #### [place] [address] USAMCV (RBC) [Entitic vol]93.9 dAMkmlzl13-615DnadwbdioUniversity Hospitals St. John Medical CenterComment on above:Performed By: #### RESP PANEL UPP., BIOFIRECOVNOTDE #### [place] [address] USAMonocytes (Bld) [#/Vol]0.3 10*3/uLNormal0.0-0.8[facility] John Medical CenterComment on above:Performed By: #### RESP PANEL UPP., BIOFIRECOVNOTDE #### [place] [address] USAMonocytes/100 WBC (Bld)7.3 %Normal.[facility] John Medical CenterComment on above:Performed By: #### RESP PANEL UPP., BIOFIRECOVNOTDE #### [place] [address] USANeutrophils (Bld) [#/Vol]3.0 10*3/uLNormal1.8-7.7FWilson HealthComment on above:Performed By: #### RESP PANEL UPP., BIOFIRECOVNOTDE #### [place] [address] USANeutrophils/100 WBC (Bld)64.4 %Normal.[facility] John Medical CenterComment on above:Performed By: #### RESP PANEL UPP., BIOFIRECOVNOTDE #### [place] [address] USAPlatelet mean volume (Bld) [Entitic vol]7.7 fLNormal 6.3-10.7FWilson HealthComment on above:Performed By: #### RESP PANEL UPP., BIOFIRECOVNOTDE #### [facility] [address] [place] [address] USAPlatelets (Bld) [#/Vol]232 10*3/pUOroxfb894-145PxfswnttiUniversity Hospitals St. John Medical CenterComment on above:Performed By: #### RESP PANEL UPP., BIOFIRECOVNOTDE #### [place] [address] USARBC (Bld) [#/Vol]2.93 10*6/uLLow3.60-5.00[facility] John Medical CenterComment on above:Performed By: #### RESP PANEL UPP., BIOFIRECOVNOTDE #### [place] [address] USAWBC (Bld) [#/Vol]4.7 10*3/uLNormal3.8-11.6FWilson HealthComment on above:Performed By: #### RESP PANEL UPP., BIOFIRECOVNOTDE #### [place] [address] USAComplete Blood Count Auto Diffon 16-46-7101Iddb Corpuscular HGB Conc32.5 g/hPBuuhsl07.0-35.0The [facility] Physician GroupComment on above:Performed By: #### RESP PANEL UPP., BIOFIRECOVNOTDE #### [place] [address] USANRBC%0.2 /100{WBC}Normal0-0.5The [facility] Physician Group Comment on above:Performed By: #### RESP PANEL UPP., BIOFIRECOVNOTDE #### [place] [address] USALeukocytes [#/volume] corrected for nucleated erythrocytes in Blood by Automated counOrdered By: Ziggy Barraza on 10-24-4759ETS corrected for nucl RBC Auto (Bld) [#/Vol]4.7 10*3/uL3.8-11.6FWilson HealthMCHC Auto (RBC) [Mass/Vol]Ordered By: Ziggy Barraza on 49-41-7923XZVJ (RBC) [Mass/Vol]32.5 g/dL32.0-35.0[facility] John Medical CenterNo Panel InformationOrdered By: Luis Fernando Strauss on 14-87-6056Gleaewyrw GFR (CKD-EPI)> 60.0 mL/MinUniversity Hospitals St. John Medical CenterPharmacy Creatinine Clearance (Chem60.49[facility] St. John Medical CenterNucleated erythrocytes [Presence] in Blood by Automated countOrdered By: Ziggy Barraza on 14-80-8678Znitpffqw RBC Auto Ql (Bld)0.2 /100{WBC}0-0.5FWilson HealthBasic Metabolic Panelon 20-21-7572Pgrmo gap [Moles/Vol]9.9 mmol/L Normal6.0-15.0The [facility] Physician GroupComment on above:Performed By: #### RESP PANEL UPP., BIOFIRECOVNOTDE #### [facility] [address] [place] [address] USACalcium [Mass/Vol]8.3 mg/dLLow8.6-10.3The [facility] Physician GroupComment on above:Performed By: #### RESP PANEL UPP., BIOFIRECOVNOTDE #### [facility] [address] [place] [address] USAChloride [Moles/Vol]97 mmol/DUqe61-970Tul [facility] Physician GroupComment on above:Performed By: #### RESP PANEL UPP., BIOFIRECOVNOTDE #### [facility] [address] [place] [address] USACO2 [Moles/Vol]35.0 mmol/LHigh21.0-31.0The [facility] Physician GroupComment on above:Performed By: #### RESP PANEL UPP., BIOFIRECOVNOTDE #### [facility] [address] [place] [address] USACreatinine [Mass/Vol]0.89 mg/dLNormal0.60-1.20The [facility] Physician GroupComment on above:Performed By: #### RESP PANEL UPP., BIOFIRECOVNOTDE #### [place] [address] USACreatinine Clr Calc Pgyrvxcr49.10NormalThe [facility] Physician GroupComment on above:Result Comment: PERFORMED BY: [place] [address] PATHOLOGIST GASTROENTEROLOGIST JOSÉ MIGUEL RON M.D.Performed By: #### RESP PANEL UPP., BIOFIRECOVNOTDE #### [place] [address] USAGFR/1.73 sq M.predicted MDRD (S/P/Bld) [Vol rate/Area] mL/min/{1.73_m2}NormalThe [facility] Physician GroupComment on above:Performed By: #### RESP PANEL UPP., BIOFIRECOVNOTDE #### [place] [address] USAGlucose [Mass/Vol]98 mg/nEQctcap85-940Wcx [facility] Physician GroupComment on above:Result Comment: Random Glucose Reference Range is dependent on time and content of last meal. Glucose of more than 200 mg/dL in a nonstressed, ambulatory subject supports the diagnosis of Diabetes Mellitus. ADA recommended reference rangePerformed By: #### RESP PANEL UPP., BIOFIRECOVNOTDE #### [place] [address] USAPotassium [Moles/Vol]4.9 mmol/LNormal3.5-5.1The [facility] Physician GroupComment on above:Performed By: #### RESP PANEL UPP., BIOFIRECOVNOTDE #### [place] [address] USASodium [Moles/Vol]137 mmol/CFiqgyc273-653Lgl [facility] Physician GroupComment on above:Performed By: #### RESP PANEL UPP., BIOFIRECOVNOTDE #### [place] [address] USAUrea nitrogen [Mass/Vol]12 mg/dLNormal7-25The [facility] Physician GroupComment on above:Performed By: #### RESP PANEL UPP., BIOFIRECOVNOTDE #### [place] [address] USAComplete Blood Count Auto Diffon 82-74-9920Xjvsgvupz (Bld) [#/Vol]0.1 10*3/uLNormal0.0-0.2The [facility] Physician GroupComment on above: Result Comment: PERFORMED BY: [place] [address] PATHOLOGIST GASTROENTEROLOGIST JOSÉ MIGUEL RON M.D.Performed By: #### RESP PANEL UPP., BIOFIRECOVNOTDE #### [place] [address] USABasophils/100 WBC (Bld)1.4 %Normal.The [facility] Physician GroupComment on above:Performed By: #### RESP PANEL UPP., BIOFIRECOVNOTDE #### [place] [address] USAEosinophils (Bld) [#/Vol]0.2 10*3/uLNormal0.0-0.45The [facility] Physician GroupComment on above:Performed By: #### RESP PANEL UPP., BIOFIRECOVNOTDE #### [place] [address] USAEosinophils/100 WBC (Bld)3.8 %Normal.The [facility] Physician GroupComment on above:Performed By: #### RESP PANEL UPP., BIOFIRECOVNOTDE #### [place] [address] USAErythrocyte distribution width (RBC) [Ratio]20.9 %High 11.9-15.3The [facility] Physician GroupComment on above:Performed By: #### RESP PANEL UPP., BIOFIRECOVNOTDE #### [place] [address] USAHematocrit (Bld) [Volume fraction]24.6 %Low34.0-46.4The [facility] Physician GroupComment on above:Performed By: #### RESP PANEL UPP., BIOFIRECOVNOTDE #### [place] [address] USAHemoglobin (Bld) [Mass/Vol]7.9 g/dLLow11.8-15.4The [facility] Physician GroupComment on above:Performed By: #### RESP PANEL UPP., BIOFIRECOVNOTDE #### [place] [address] USALymphocytes (Bld) [#/Vol]1.2 10*3/uLNormal1.00-4.8The [facility] Physician GroupComment on above:Performed By: #### RESP PANEL UPP., BIOFIRECOVNOTDE #### [place] [address] USALymphocytes/100 WBC (Bld)22.7 %Normal.The [facility] Physician GroupComment on above:Performed By: #### RESP PANEL UPP., BIOFIRECOVNOTDE #### [place] [address] USAMCH (RBC) [Entitic mass]30.3 hvCajgsh51.7-34.3The [facility] Physician GroupComment on above:Performed By: #### RESP PANEL UPP., BIOFIRECOVNOTDE #### [place] [address] USAMCV (RBC) [Entitic vol]94.3 dWOycbwj48-698Nwh [facility] Physician GroupComment on above:Performed By: #### RESP PANEL UPP., BIOFIRECOVNOTDE #### [place] [address] USAMean Corpuscular HGB Conc32.1 g/wPVcycqn07.0-35.0The [facility] Physician GroupComment on above:Performed By: #### RESP PANEL UPP., BIOFIRECOVNOTDE #### [place] [address] USAMonocytes (Bld) [#/Vol]0.4 10*3/uLNormal0.0-0.8The [facility] Physician GroupComment on above:Performed By: #### RESP PANEL UPP., BIOFIRECOVNOTDE #### [facility] [address] [place] [address] USAMonocytes/100 WBC (Bld)7.6 %Normal.The [facility] Physician GroupComment on above:Performed By: #### RESP PANEL UPP., BIOFIRECOVNOTDE #### [facility] [address] [place] [address] USANeutrophils (Bld) [#/Vol]3.3 10*3/uLNormal1.8-7.7The [facility] Physician GroupComment on above:Performed By: #### RESP PANEL UPP., BIOFIRECOVNOTDE #### [place] [address] USANeutrophils/100 WBC (Bld)64.5 %Normal.The [facility] Physician GroupComment on above:Performed By: #### RESP PANEL UPP., BIOFIRECOVNOTDE #### [place] [address] USANRBC%0.1 /100{WBC}Normal0-0.5The [facility] Physician Group Comment on above:Performed By: #### RESP PANEL UPP., BIOFIRECOVNOTDE #### [place] [address] USAPlatelet mean volume (Bld) [Entitic vol]7.8 fLNormal 6.3-10.7The [facility] Physician GroupComment on above:Performed By: #### RESP PANEL UPP., BIOFIRECOVNOTDE #### [place] [address] USAPlatelets (Bld) [#/Vol]224 10*3/aRRtkhbx613-286Luz [facility] Physician GroupComment on above:Performed By: #### RESP PANEL UPP., BIOFIRECOVNOTDE #### [facility] [address] [place] [address] USARBC (Bld) [#/Vol]2.61 10*6/uLLow3.60-5.00The [facility] Physician GroupComment on above:Performed By: #### RESP PANEL UPP., BIOFIRECOVNOTDE #### [place] [address] USAWBC (Bld) [#/Vol]5.2 10*3/uLNormal3.8-11.6The [facility] Physician GroupComment on above:Performed By: #### RESP PANEL UPP., BIOFIRECOVNOTDE #### [place] [address] USAAlbumin [Mass/volume] in Serum or Plasma by Bromocresol green (BCG) dye binding methoOrdered By: Nabila Rao on 09-56-7232Gxmahsu BCG dye [Mass/Vol]2.9 g/dLLow3.5-5.7FWilson HealthComplete Blood Count Auto Diffon 18-86-1453Rnwinvilc (Bld) [#/Vol]0.1 10*3/uLNormal0.0-0.2The [facility] Physician GroupComment on above:Result Comment: PERFORMED BY: [place] [address] PATHOLOGIST GASTROENTEROLOGIST JOSÉ MIGUEL RON M.D.Performed By: #### RESP PANEL UPP., BIOFIRECOVNOTDE #### [place] [address] USABasophils/100 WBC (Bld)1.5 %Normal.The [facility] Physician GroupComment on above:Performed By: #### RESP PANEL UPP., BIOFIRECOVNOTDE #### [place] [address] USAEosinophils (Bld) [#/Vol]0.2 10*3/uLNormal0.0-0.45The [facility] Physician GroupComment on above:Performed By: #### RESP PANEL UPP., BIOFIRECOVNOTDE #### [place] [address] USAEosinophils/100 WBC (Bld)2.9 %Normal.The [facility] Physician GroupComment on above:Performed By: #### RESP PANEL UPP., BIOFIRECOVNOTDE #### [place] [address] USAErythrocyte distribution width (RBC) [Ratio]20.9 %High 11.9-15.3The [facility] Physician GroupComment on above:Performed By: #### RESP PANEL UPP., BIOFIRECOVNOTDE #### [place] [address] USAHematocrit (Bld) [Volume fraction]23.6 %Low34.0-46.4The [facility] Physician GroupComment on above:Performed By: #### RESP PANEL UPP., BIOFIRECOVNOTDE #### [place] [address] USAHemoglobin (Bld) [Mass/Vol]7.7 g/dLLow11.8-15.4The [facility] Physician GroupComment on above:Performed By: #### RESP PANEL UPP., BIOFIRECOVNOTDE #### [place] [address] USALymphocytes (Bld) [#/Vol]1.2 10*3/uLNormal1.00-4.8The [facility] Physician GroupComment on above:Performed By: #### RESP PANEL UPP., BIOFIRECOVNOTDE #### [place] [address] USALymphocytes/100 WBC (Bld)20.4 %Normal.The [facility] Physician GroupComment on above:Performed By: #### RESP PANEL UPP., BIOFIRECOVNOTDE #### [place] [address] USAMCH (RBC) [Entitic mass]30.4 vmFgyihv23.7-34.3The [facility] Physician GroupComment on above:Performed By: #### RESP PANEL UPP., BIOFIRECOVNOTDE #### [place] [address] USAMCV (RBC) [Entitic vol]93.4 lQFidzmn02-868Smu [facility] Physician GroupComment on above:Performed By: #### RESP PANEL UPP., BIOFIRECOVNOTDE #### [place] [address] USAMean Corpuscular HGB Conc32.6 g/pVKwoglu34.0-35.0The [facility] Physician GroupComment on above:Performed By: #### RESP PANEL UPP., BIOFIRECOVNOTDE #### [place] [address] USAMonocytes (Bld) [#/Vol]0.5 10*3/uLNormal0.0-0.8The [facility] Physician GroupComment on above:Performed By: #### RESP PANEL UPP., BIOFIRECOVNOTDE #### [place] [address] USAMonocytes/100 WBC (Bld)9.3 %Normal.The [facility] Physician GroupComment on above:Performed By: #### RESP PANEL UPP., BIOFIRECOVNOTDE #### [place] [address] USANeutrophils (Bld) [#/Vol]3.7 10*3/uLNormal1.8-7.7The [facility] Physician GroupComment on above:Performed By: #### RESP PANEL UPP., BIOFIRECOVNOTDE #### [place] [address] USANeutrophils/100 WBC (Bld)65.9 %Normal.[facility] Physician GroupComment on above:Performed By: #### RESP PANEL UPP., BIOFIRECOVNOTDE #### [place] [address] USANRBC%0.2 /100{WBC}Normal0-0.5The [facility] Comment on above:Performed By: #### RESP PANEL UPP., BIOFIRECOVNOTDE #### [place] [address] USAPlatelet mean volume (Bld) [Entitic vol]7.7 fLNormal 6.3-10.7The [facility] Physician GroupComment on above:Performed By: #### RESP PANEL UPP., BIOFIRECOVNOTDE #### [place] [address] USAPlatelets (Bld) [#/Vol]237 10*3/qCCtlwql226-884Cqb [facility] Physician GroupComment on above:Performed By: #### RESP PANEL UPP., BIOFIRECOVNOTDE #### [place] [address] USARBC (Bld) [#/Vol]2.53 10*6/uLLow3.60-5.00The [facility] Physician GroupComment on above:Performed By: #### RESP PANEL UPP., BIOFIRECOVNOTDE #### [place] [address] USAWBC (Bld) [#/Vol]5.7 10*3/uLNormal3.8-11.6The [facility] Physician GroupComment on above:Performed By: #### RESP PANEL UPP., BIOFIRECOVNOTDE #### [place], [place] [address] USAComprehensive Metabolic Panelon 44-95-8162Fcnocnd [Mass/Vol]2.9 g/dLLow3.5-5.7The [facility] Physician GroupComment on above: Performed By: #### RESP PANEL UPP., BIOFIRECOVNOTDE #### [place] [address] USAAnion gap [Moles/Vol]9.1 mmol/LNormal6.0-15.0The [facility] Physician GroupComment on above:Performed By: #### RESP PANEL UPP., BIOFIRECOVNOTDE #### [place] [address] USACalcium [Mass/Vol]8.3 mg/dLLow8.6-10.3The [facility] Physician GroupComment on above:Performed By: #### RESP PANEL UPP., BIOFIRECOVNOTDE #### [facility] [address] [place] [address] USAChloride [Moles/Vol]100 mmol/OZgkdii88-421Vph [facility] Physician GroupComment on above:Performed By: #### RESP PANEL UPP., BIOFIRECOVNOTDE #### [place] [address] USACO2 [Moles/Vol]32.6 mmol/LHigh21.0-31.0The [facility] Physician GroupComment on above:Performed By: #### RESP PANEL UPP., BIOFIRECOVNOTDE #### [place] [address] USACreatinine [Mass/Vol]0.79 mg/dLNormal0.60-1.20The [facility] Physician GroupComment on above:Performed By: #### RESP PANEL UPP., BIOFIRECOVNOTDE #### [place] [address] USACreatinine Clr Calc Getirguq82.96NormalThe [facility] Physician GroupComment on above:Performed By: #### RESP PANEL UPP., BIOFIRECOVNOTDE #### [place] [address] USAGFR/1.73 sq M.predicted MDRD (S/P/Bld) [Vol rate/Area] mL/min/{1.73_m2}NormalThe [facility] Physician GroupComment on above:Performed By: #### RESP PANEL UPP., BIOFIRECOVNOTDE #### [place] [address] USAGlucose [Mass/Vol]96 mg/oNAbkndx57-470Tgu [facility] Physician GroupComment on above:Result Comment: Random Glucose Reference Range is dependent on time and content of last meal. Glucose of more than 200 mg/dL in a nonstressed, ambulatory subject supports the diagnosis of Diabetes Mellitus. ADA recommended reference rangePerformed By: #### RESP PANEL UPP., BIOFIRECOVNOTDE #### [place] [address] USAPotassium [Moles/Vol]3.7 mmol/LNormal3.5-5.1The [facility] Physician GroupComment on above:Performed By: #### RESP PANEL UPP., BIOFIRECOVNOTDE #### [place] [address] USASodium [Moles/Vol]138 mmol/MVmbvjz969-319Qvb [facility] Physician GroupComment on above:Performed By: #### RESP PANEL UPP., BIOFIRECOVNOTDE #### [place] [address] USAUrea nitrogen [Mass/Vol]9 mg/dLNormal7-e [facility] Physician GroupComment on above:Performed By: #### RESP PANEL UPP., BIOFIRECOVNOTDE #### [place] [address] USAComprehensive Metabolic PanelOrdered By: Nabila Rao on 63-47-9899Qnpgyli/Globulin [Mass ratio]1.1 {ratio}[facility]ron GeneralComment on above:Performed By: #### RESP PANEL UPP., BIOFIRECOVNOTDE #### [place] [address] USAALP [Catalytic activity/Vol]155 U/LTxbi08-117ZzqkvszncUniversity Hospitals St. John Medical CenterComment on above:Performed By: #### RESP PANEL UPP., BIOFIRECOVNOTDE #### [place] [address] USAALT [Catalytic activity/Vol]13 U/LNormal7-52[facility]als St. John Medical CenterComment on above:Performed By: #### RESP PANEL UPP., BIOFIRECOVNOTDE #### [place] [address] USAAST [Catalytic activity/Vol]15 U/LJjitgl74-90BwagkndqeUniversity Hospitals St. John Medical CenterComment on above:Performed By: #### RESP PANEL UPP., BIOFIRECOVNOTDE #### [place] [address] USABilirubin [Mass/Vol]0.3 mg/dLNormal0.3-1.0[facility] St. John Medical CenterComment on above:Performed By: #### RESP PANEL UPP., BIOFIRECOVNOTDE #### [place] [address] USAGlobulin (S) [Mass/Vol]2.6 g/dLNormalUniversity Hospitals St. John Medical CenterComment on above:Performed By: #### RESP PANEL UPP., BIOFIRECOVNOTDE #### [place] [address] USAProtein [Mass/Vol]5.5 g/dLLow6.4-8.9[facility]. John Medical CenterComment on above:Performed By: #### RESP PANEL UPP., BIOFIRECOVNOTDE #### [place] [address] USAFerritinOrdered By: Nabila Rao on 75-93-5058Xasvvjxg [Mass/Vol]338.7 ng/tYAbqo37.0-306.8[facility] St. John Medical CenterComment on above:Performed By: #### HS TROP, CK, BNP, BMP, CBC, PT, PTT #### [place] [address] USAFolate [Mass/volume] in Serum or PlasmaOrdered By: Nabila Rao on 96-08-1069Llhsmu [Mass/Vol]6.5 ng/mL>5.9[facility] St. John Medical CenterComment on above:Folate reference range: >5.9 ng/mlThe WHO technical consultation on folate and vitamin a58tfrdefqcyajm has determined that folate concentrations lessthan 4 ng/ml are considered deficient.Iron and TIBC Profileon 01-20-2024% Iron Phzebvnakf30.3 %Moc56-07Rbm [facility] Physician GroupComment on above:Performed By: #### RESP PANEL UPP., BIOFIRECOVNOTDE #### [place] [address] USATotal Iron Binding Fsixkouj930 ug/fTDbt417-351Ffz [facility] Physician GroupComment on above:Performed By: #### RESP PANEL UPP., BIOFIRECOVNOTDE #### [facility] [address] [place] [address] USAIron and TIBC ProfileOrdered By: Nabila Rao on 73-06-3229Hpst [Mass/Vol]24 ug/sURwm81-612VefdsgeiuUniversity Hospitals St. John Medical Center Comment on above:Performed By: #### RESP PANEL UPP., BIOFIRECOVNOTDE #### [facility] [address] [place] [address] USATransferrin [Mass/Vol]166 mg/qVDzr225-503AxoyfwefhUniversity Hospitals St. John Medical CenterComment on above:Performed By: #### RESP PANEL UPP., BIOFIRECOVNOTDE #### [place] [address] USAIron binding capacity [Mass/volume] in Serum or Plasma Ordered By: Nabila Rao on 35-28-2654Jhwv binding capacity [Mass/Vol]232 ug/dL Mjt011-656PxxutffztUniversity Hospitals St. John Medical CenterIron saturation [Mass Fraction] in Serum or PlasmaOrdered By: Nabila Rao on 78-81-9720Yvlo saturation [Mass fraction]10.3 %Bpq73-30BaodklxazUniversity Hospitals St. John Medical CenterMagnesiumOrdered By: Nabila Rao on 65-91-7988Qdcwfpcxm [Mass/Vol]1.8 mg/dLLow1.9-2.7FWilson HealthComment on above:Performed By: #### RESP PANEL UPP., BIOFIRECOVNOTDE #### [facility] [address] [place] [address] USAPhosphorusOrdered By: Nabila Rao on 40-13-7646Ikzuchouc [Mass/Vol]4.2 mg/dLNormal2.5-4.5FWilson HealthComment on above:Performed By: #### RESP PANEL UPP., BIOFIRECOVNOTDE #### [place] [address] USAThyroid Stimulating HormoneOrdered By: Nabila Rao on 92-23-1736YIK Qn3.03 m[IU]/LNormal0.45-5.33[facility] Comment on above:Result Comment: PERFORMED BY: [place] [address] PATHOLOGIST GASTROENTEROLOGIST JOSÉ MIGUEL RON M.D.Performed By: #### HS TROP, CK, BNP, BMP, CBC, PT, PTT #### [place] [id number] USATroponin I High Sensitivityon 81-22-1354Whwhhtfd I High Sensitivity8.4 pg/mLNormal0.0-15.0The [facility] Physician GroupComment on above: Result Comment: PERFORMED BY: [place] [address] PATHOLOGIST GASTROENTEROLOGIST JOSÉ MIGUEL RON M.D.Performed By: #### HS TROP, CK, BNP, BMP, CBC, PT, PTT #### [place] [id number] USATroponin I.cardiac [Mass/volume] in Serum or Plasma by Detection limit <= 0.01 ng/Ordered By: Nabila Rao on 89-09-4789Srekbmlw I.cardiac DL <= 0.01 ng/mL [Mass/Vol]8.4 pg/mL0.0-15.0[facility] Hospitals St. John Medical CenterUS venous duplex LE BIon 42-84-2660EG venous duplex [facility] Main [address] [address] Ultrasound Report Signed Patient: Jonatan Olivarez MR#: [id number] : 1960 Acct:[id number] Age/Sex: 63 / F ADM Date: 01/19/24 Loc: Room: [address] [place] [address] Type: ADM IN Attending Dr: Luis Fernando [...] Artur Guo MD01/20/2024 1:32 PM Dictation Location: [facility]-04 Tech: Kirsten Cespedes Transcribed By: [facility] 01/20/24 1332 Dictated By: Artur Guo MD 01/20/24 1329 Signed By: 01/20/24 1332[facility] Physician GroupVit. B12/Folate ProfileOrdered By: Nabila Rao on 21-32-1803Puxlhcqcs (Vitamin B12) [Mass/Vol]398 pg/mLNormal 180-914University Hospitals St. John Medical CenterComment on above:Performed By: #### HS TROP, CK, BNP, BMP, CBC, PT, PTT #### [facility] [address] [place] [address] USAVit. B12/Folate Profileon 69-18-2300Owfutw9.5 ng/mLNormal >5.9The [facility] Physician [facility] State HospitalComment on above:Result Comment: Folate reference range: >5.9 ng/ml The WHO technical consultation on folate and vitamin b12 deficiencies has determined that folate concentrations less than 4 ng/ml are considered deficient.Performed By: #### HS TROP, CK, BNP, BMP, CBC, PT, PTT #### [facility] [address] [place] [address] USAActivated partial thromboplastin time (aPTT) in platelet poor plasma by coagulation aOrdered By: Carlo Grimaldo on 39-52-0096jNWW Coag (PPP) [Time]31.2 s25.1-36.5FWilson HealthComment on above:A hematocrit value greater than 55% may lead to inaccurate results in coagulation testing. Patientshaving hematocrit values >55% require a special collection tube for coagulation studies. Please contact the laboratory at [phone] for redraw instructions.Automated basophil %Ordered By: Nabila Rao on 01-19-2024 Basophils/100 WBC (Bld)0.9 %Normal.[facility] St. John Medical CenterComment on above:Performed By: #### RESP PANEL UPP., BIOFIRECOVNOTDE #### [place] [address] USAAutomated basophil countOrdered By: Nabila Rao on 52-64-9869Rvoqjjmtu (Bld) [#/Vol]0.1 10*3/uLNormal0.0-0.2FWilson HealthComment on above:Result Comment: PERFORMED BY: [place] [address] PATHOLOGIST GASTROENTEROLOGIST JOSÉ MIGUEL RON M.D.Performed By: #### RESP PANEL UPP., BIOFIRECOVNOTDE #### [place] [address] USAAutomated blood monocyte countOrdered By: Nabila Rao on 19-43-5884Yavwfthhf (Bld) [#/Vol]0.5 10*3/uLNormal0.0-0.8[facility] St. John Medical CenterComment on above:Performed By: #### RESP PANEL UPP., BIOFIRECOVNOTDE #### [place] [address] USAAutomated eosinophil %Ordered By: Nabila Rao on 66-76-3654Isljmewkmjj/100 WBC (Bld)2.2 %Normal.[facility] Comment on above:Performed By: #### RESP PANEL UPP., BIOFIRECOVNOTDE #### [place] [address] USAAutomated eosinophil countOrdered By: Nabila Rao on 04-01-4831Hbdviwgbmer (Bld) [#/Vol]0.2 10*3/uLNormal0.0-0.45[facility]. John Medical CenterComment on above:Performed By: #### RESP PANEL UPP., BIOFIRECOVNOTDE #### [facility] [address] [place] [address] USAAutomated monocyte %Ordered By: Nabila Rao on 01-19-2024 Monocytes/100 WBC (Bld)6.8 %Normal.[facility]. John Medical CenterComment on above:Performed By: #### RESP PANEL UPP., BIOFIRECOVNOTDE #### [place] [address] USAAutomated neutrophil %Ordered By: Nabila Rao on 35-57-6574Uuzektoadfx/100 WBC (Bld)70.9 %Normal.[facility]. John Medical CenterComment on above:Performed By: #### RESP PANEL UPP., BIOFIRECOVNOTDE #### [place] [address] USABNP ser/plasOrdered By: Carlo Grimaldo on 01-19-2024 Natriuretic peptide B (Bld) [Mass/Vol]618.0 pg/mLHigh5-100[facility] St. John Medical CenterComment on above:Result Comment: PERFORMED BY: [place] [address] PATHOLOGIST GASTROENTEROLOGIST JOSÉ MIGUEL RON M.D.Performed By: #### HS TROP, CK, BNP, BMP, CBC, PT, PTT #### [place] [address] USABasic Metabolic Panelon 11-10-9886Aosmawpdge Clr Calc Vlyqycei40.[address] [place] [address] Physician GroupComment on above:Result Comment: PERFORMED BY: [place] [address] PATHOLOGIST GASTROENTEROLOGIST JOSÉ MIGUEL RON M.D.Performed By: #### HS TROP, CK, BNP, BMP, CBC, PT, PTT #### [place] [address] USAGFR/1.73 sq M.predicted MDRD (S/P/Bld) [Vol rate/Area] mL/min/{1.73_m2}NormalThe [facility] Physician GroupComment on above:Performed By: #### HS TROP, CK, BNP, BMP, CBC, PT, PTT #### [facility] [address] [place] [address] USABioFire Not Detectedon 65-26-2339OruUgdp Not DetectedNot detectedNormalNot DetecteThe [facility] Physician GroupComment on above:Result Comment: This is a duplicate RP2.1 COVID (PCR) result to be used for statistical tracking purpose only. PERFORMED BY: [place] [address] PATHOLOGIST GASTROENTEROLOGIST JOSÉ MIGUEL RON M.D.Performed By: #### RESP PANEL UPP., BIOFIRECOVNOTDE #### [place] [address] USACOVID-19 Detected/Not DetectedOrdered By: Carlo Grimaldo on 48-86-0736VULN-CoV-2 (COVID-19) RNA JANIA+non-probe Ql (Nph)Not detectedNot J.W. Ruby Memorial HospitalComment on above:This is a duplicate RP2.1 COVID (PCR) result to be used for statistical tracking purpose only.CT abdomen pelvis w conon 85-88-7432HC abdomen pelvis w [facility] [place] [address] [place] [address] CT Scan Report Signed Patient: Jonatan Olivarez MR#: [id number] : 1960 Acct:[id number] Age/Sex: 63 / F ADM Date: 01/19/24 Loc: ER Room: Type: [facility] ER Attending Dr: Copies to: Carlo Grimaldo DO Ordering Provider: Carlo Grimaldo DO Date of Service: 01/19/24 CT/CT angio chest PE protocol: f ([id number]) CT/CT abdomen pelvis w con: f CLINICAL [...] Lindsey Menchaca M.D.01/19/2024 7:09 PM Dictation Location: [place] [address] Transcribed By: [facility] 01/19/241908 Dictated By: Lindsey Menchaca MD 01/19/24 (more content not included)...NormalThe [facility] Physician GroupCalcium [Mass/volume] in Serum or PlasmaOrdered By: Carlo Grimaldo on 16-51-7174Hhodnsd [Mass/Vol]8.7 mg/dLNormal8.6-10.3FWilson HealthComment on above:Performed By: #### HS TROP, CK, BNP, BMP, CBC, PT, PTT #### [facility] [address] [place] [address] USACarbon dioxide, total [Moles/volume] in Serum or Plasma Ordered By: Carlo Grimaldo on 44-29-2732CY3 [Moles/Vol]30.7 mmol/YJiqsit49.0-31.[address] John Medical CenterComment on above:Performed By: #### HS TROP, CK, BNP, BMP, CBC, PT, PTT #### [facility] [address] [place] [address] USAChloride [Moles/volume] in Serum or PlasmaOrdered By: Carlo Grimaldo on 58-67-2345Vxjnaicy [Moles/Vol]97 mmol/MVxi01-339HvzspuibyUniversity Hospitals St. John Medical CenterComment on above:Performed By: #### HS TROP, CK, BNP, BMP, CBC, PT, PTT #### [place] [address] USAComplete Blood Count Auto Diffon 43-74-4240Hkhrrubpx (Bld) [#/Vol]0.1 10*3/uLNormal0.0-0.2The [facility] Physician GroupComment on above: Result Comment: PERFORMED BY: [place] [address] PATHOLOGIST GASTROENTEROLOGIST JOSÉ MIGUEL RON M.D.Performed By: #### HS TROP, CK, BNP, BMP, CBC, PT, PTT #### [place] [address] USABasophils/100 WBC (Bld)1.8 %Normal.The [facility] Physician GroupComment on above:Performed By: #### HS TROP, CK, BNP, BMP, CBC, PT, PTT #### [place] [address] USAEosinophils (Bld) [#/Vol]0.2 10*3/uLNormal0.0-0.45The [facility] Physician GroupComment on above:Performed By: #### HS TROP, CK, BNP, BMP, CBC, PT, PTT #### [place] [address] USAEosinophils/100 WBC (Bld)2.5 %Normal.The [facility] Physician GroupComment on above:Performed By: #### HS TROP, CK, BNP, BMP, CBC, PT, PTT #### [place] [address] USAErythrocyte distribution width (RBC) [Ratio]20.2 %High 11.9-15.3The [facility] Physician GroupComment on above:Performed By: #### HS TROP, CK, BNP, BMP, CBC, PT, PTT #### [address] [place] [address] USAHematocrit (Bld) [Volume fraction]23.6 %Low34.0-46.4The [facility] Physician GroupComment on above:Performed By: #### HS TROP, CK, BNP, BMP, CBC, PT, PTT #### [place] [address] USAHemoglobin (Bld) [Mass/Vol]7.7 g/dLLow11.8-15.4The [facility] Physician GroupComment on above:Performed By: #### HS TROP, CK, BNP, BMP, CBC, PT, PTT #### [place] [address] USALymphocytes (Bld) [#/Vol]1.2 10*3/uLNormal1.00-4.8The [facility] Physician GroupComment on above:Performed By: #### HS TROP, CK, BNP, BMP, CBC, PT, PTT #### [place] [address] USALymphocytes/100 WBC (Bld)19.9 %Normal.The [facility] Physician GroupComment on above:Performed By: #### HS TROP, CK, BNP, BMP, CBC, PT, PTT #### [address] (RBC) [Entitic mass]30.4 pjJfykik35.7-34.3The [facility] Physician GroupComment on above:Performed By: #### HS TROP, CK, BNP, BMP, CBC, PT, PTT #### [address] (RBC) [Entitic vol]92.7 zJGvqxkx97-220Rqm [facility] Physician GroupComment on above:Performed By: #### HS TROP, CK, BNP, BMP, CBC, PT, PTT #### [place] [address] USAMean Corpuscular HGB Conc32.8 g/vUXnqvpm18.0-35.0The [facility] Physician GroupComment on above:Performed By: #### HS TROP, CK, BNP, BMP, CBC, PT, PTT #### [place] [address] USAMonocytes (Bld) [#/Vol]0.5 10*3/uLNormal0.0-0.8The [facility] Physician GroupComment on above:Performed By: #### HS TROP, CK, BNP, BMP, CBC, PT, PTT #### [place] [address] USAMonocytes/100 WBC (Bld)7.9 %Normal.The [facility] Physician GroupComment on above:Performed By: #### HS TROP, CK, BNP, BMP, CBC, PT, PTT #### [place] [address] USANeutrophils (Bld) [#/Vol]4.2 10*3/uLNormal1.8-7.7The [facility] Physician GroupComment on above:Performed By: #### HS TROP, CK, BNP, BMP, CBC, PT, PTT #### [place] [address] USANeutrophils/100 WBC (Bld)67.9 %Normal.The [facility] Physician GroupComment on above:Performed By: #### HS TROP, CK, BNP, BMP, CBC, PT, PTT #### [place] [address] USANRBC%0.1 /100{WBC}Normal0-0.5The [facility] Physician Group Comment on above:Performed By: #### HS TROP, CK, BNP, BMP, CBC, PT, PTT #### [place] [address] USAPlatelet mean volume (Bld) [Entitic vol]7.3 fLNormal 6.3-10.7The [facility] Physician GroupComment on above:Performed By: #### HS TROP, CK, BNP, BMP, CBC, PT, PTT #### [place] [address] USAPlatelets (Bld) [#/Vol]245 10*3/fANemccv685-503Vsb [facility] Physician GroupComment on above:Performed By: #### HS TROP, CK, BNP, BMP, CBC, PT, PTT #### [place] [address] USARBC (Bld) [#/Vol]2.54 10*6/uLLow3.60-5.00The [facility] Physician GroupComment on above:Performed By: #### HS TROP, CK, BNP, BMP, CBC, PT, PTT #### [place] [address] USAWBC (Bld) [#/Vol]6.1 10*3/uLNormal3.8-11.6The [facility] Physician GroupComment on above:Performed By: #### HS TROP, CK, BNP, BMP, CBC, PT, PTT #### [place] [address] USAMean Corpuscular HGB Conc32.9 g/rUPnyjns68.0-35.0The [facility] Physician [facility] HospitalComment on above:Performed By: #### RESP PANEL UPP., BIOFIRECOVNOTDE #### [place] [address] USAMonocytes/100 WBC (Bld)23.33 %High0.00-20.00The [facility] Physician GroupComment on above:Result Comment: For adults in ED, MDW > 20.0 may be associated with a higher risk of sepsis during the first 12 hrs of hospital admission The predictive value of MDW for identifying sepsis in patients with hematological abnormalities has not been establishedPerformed By: #### RESP PANEL UPP., BIOFIRECOVNOTDE #### [place] [address] USANRBC%0.2 /100{WBC}Normal0-0.5The [facility] Physician Group Comment on above:Performed By: #### RESP PANEL UPP., BIOFIRECOVNOTDE #### [place] [address] USABasophils (Bld) [#/Vol]0.1 10*3/uLNormal0.0-0.2The [facility] Physician GroupComment on above:Result Comment: PERFORMED BY: [place] [address] PATHOLOGIST GASTROENTEROLOGIST JOSÉ MIGUEL RON M.D.Performed By: #### HS TROP, CK, BNP, BMP, CBC, PT, PTT #### [place] [address] USABasophils/100 WBC (Bld)1.7 %Normal.The [facility] Physician GroupComment on above:Performed By: #### HS TROP, CK, BNP, BMP, CBC, PT, PTT #### [place] [address] USAEosinophils (Bld) [#/Vol]0.2 10*3/uLNormal0.0-0.45The [facility] Physician GroupComment on above:Performed By: #### HS TROP, CK, BNP, BMP, CBC, PT, PTT #### [place] [address] USAEosinophils/100 WBC (Bld)2.2 %Normal.The [facility] Physician GroupComment on above:Performed By: #### HS TROP, CK, BNP, BMP, CBC, PT, PTT #### [place] [address] USAErythrocyte distribution width (RBC) [Ratio]20.5 %High 11.9-15.3The [facility] Physician GroupComment on above:Performed By: #### HS TROP, CK, BNP, BMP, CBC, PT, PTT #### [place] [address] USAHematocrit (Bld) [Volume fraction]26.3 %Low34.0-46.4The [facility] Physician GroupComment on above:Performed By: #### HS TROP, CK, BNP, BMP, CBC, PT, PTT #### [place] [address] USAHemoglobin (Bld) [Mass/Vol]8.6 g/dLLow11.8-15.4The [facility] Physician GroupComment on above:Performed By: #### HS TROP, CK, BNP, BMP, CBC, PT, PTT #### [place] [address] USALymphocytes (Bld) [#/Vol]1.2 10*3/uLNormal1.00-4.8The [facility] Physician GroupComment on above:Performed By: #### HS TROP, CK, BNP, BMP, CBC, PT, PTT #### [place] [address] USALymphocytes/100 WBC (Bld)16.0 %Normal.The [facility] Physician GroupComment on above:Performed By: #### HS TROP, CK, BNP, BMP, CBC, PT, PTT #### [address] (RBC) [Entitic mass]30.7 skBdavlq13.7-34.3The [facility] Physician GroupComment on above:Performed By: #### HS TROP, CK, BNP, BMP, CBC, PT, PTT #### [address] (RBC) [Entitic vol]93.7 mSQhbrzc59-156Opo [facility] Physician GroupComment on above:Performed By: #### HS TROP, CK, BNP, BMP, CBC, PT, PTT #### [place] [address] USAMean Corpuscular HGB Conc32.8 g/hBXopooj02.0-35.0The [facility] Physician GroupComment on above:Performed By: #### HS TROP, CK, BNP, BMP, CBC, PT, PTT #### [place] [address] USAMonocytes (Bld) [#/Vol]0.5 10*3/uLNormal0.0-0.8The [facility] Physician GroupComment on above:Performed By: #### HS TROP, CK, BNP, BMP, CBC, PT, PTT #### [place] [address] USAMonocytes/100 WBC (Bld)20.14 %High0.00-20.00The [facility] Physician GroupComment on above:Result Comment: For adults in ED, MDW > 20.0 may be associated with a higher risk of sepsis during the first 12 hrs of hospital admissionPerformed By: #### HS TROP, CK, BNP, BMP, CBC, PT, PTT #### [place] [address] USAMonocytes/100 WBC (Bld)7.0 %Normal.The [facility] Physician GroupComment on above:Performed By: #### HS TROP, CK, BNP, BMP, CBC, PT, PTT #### [place] [address] USANeutrophils (Bld) [#/Vol]5.4 10*3/uLNormal1.8-7.7The [facility] Physician GroupComment on above:Performed By: #### HS TROP, CK, BNP, BMP, CBC, PT, PTT #### [place] [address] USANeutrophils/100 WBC (Bld)73.1 %Normal.The [facility] Physician GroupComment on above:Performed By: #### HS TROP, CK, BNP, BMP, CBC, PT, PTT #### [place] [address] USANRBC%0.1 /100{WBC}Normal0-0.5The [facility] Physician Group Comment on above:Performed By: #### HS TROP, CK, BNP, BMP, CBC, PT, PTT #### [place] [address] USAPlatelet mean volume (Bld) [Entitic vol]7.7 fLNormal 6.3-10.7The [facility] Physician GroupComment on above:Performed By: #### HS TROP, CK, BNP, BMP, CBC, PT, PTT #### [place] [address] USAPlatelets (Bld) [#/Vol]282 10*3/kDQyrmlr254-616Qvj [facility] Physician GroupComment on above:Performed By: #### HS TROP, CK, BNP, BMP, CBC, PT, PTT #### [facility] [address] [place] [address] USARBC (Bld) [#/Vol]2.81 10*6/uLLow3.60-5.00The [facility] Physician GroupComment on above:Performed By: #### HS TROP, CK, BNP, BMP, CBC, PT, PTT #### [facility] [address] [place] [address] USAWBC (Bld) [#/Vol]7.4 10*3/uLNormal3.8-11.6The [facility] Physician [facility] HospitalComment on above:Performed By: #### HS TROP, CK, BNP, BMP, CBC, PT, PTT #### [facility] [address] [place] [address] USACreatine kinase [Enzymatic activity/volume] in Serum or PlasmaOrdered By: Carlo Grimaldo on 48-23-4318US [Catalytic activity/Vol]32 U/L Acxouq47-642ZmbtekhrgUniversity Hospitals St. John Medical CenterComment on above:Performed By: #### HS TROP, CK, BNP, BMP, CBC, PT, PTT #### [facility] [address] [place] [address] USACreatinine [Mass/volume] in Serum or PlasmaOrdered By: Carlo Grimaldo on 27-08-7385Eeftqvjyrq [Mass/Vol]0.87 mg/dLNormal0.60-1.[address] John Medical CenterComment on above:Performed By: #### HS TROP, CK, BNP, BMP, CBC, PT, PTT #### [facility] [address] [place] [address] USAECG 12 lead ECGon 02-39-7153KDP 12 lead [facility] [place] [address] [place] [address] Electrocardiograph Report Signed Patient: Jonatan Olivarez MR#: [id number] : 1960 Acct:[id number] Age/Sex: 63 / F ADM Date: 01/19/24 Loc: Room: [address] [place] [address] Type: ADM IN Attending Dr: Nabila Rao [...] Signed By Nia Ng MD 12/31 04/[address] [place] [address] 12 lead [facility] Main [place] [address] [place] [address] Electrocardiograph Report Signed Patient: Jonatan Olivarez MR#: [id number] : 1960 Acct:[id number] Age/Sex: 63 / F ADM Date: 01/19/24 Loc: ER Room: Type: [facility] ER Attending Dr: Ordering Provider: Carlo Grimaldo [...] ECGs available Confirmed by CARLO GRIMALDO DO ([id number]) on 01/19/2024 8:03:55 PM Referred By: Electronically Signed By: CARLO GRIMALDO DO Transcribed By: MUS Signed By Carlo Grimaldo DO 01/18 2003NormalThe Firelands Physician GroupErythrocyte distribution width [Ratio] by Automated countOrdered By: Nabila Rao on 67-72-0011Txoguymkjmy distribution width (RBC) [Ratio]19.7 %High11.9-15.3FWilson HealthComment on above:Performed By: #### RESP PANEL UPP., BIOFIRECOVNOTDE #### [facility] [address] [id number] USAErythrocytes [#/volume] in Blood by Automated countOrdered By: Nabila Rao on 27-86-0009ZZY (Bld) [#/Vol]2.63 10*6/uLLow3.60-5.[address] John Medical CenterComment on above:Performed By: #### RESP PANEL UPP., BIOFIRECOVNOTDE #### [place] [address] USAGlucose [Mass/volume] in Serum or PlasmaOrdered By: Carlo Grimaldo on 46-46-6835Gvovnix [Mass/Vol]173 mg/gTBalk15-199LibmzkhclUniversity Hospitals St. John Medical CenterComment on above:ADA recommended reference rangeRandom [...] CK, BNP, BMP, CBC, PT, PTT #### [facility] [address] [id number] USAHematocrit [Volume Fraction] of Blood by Automated count Ordered By: Nabila Rao on 65-92-4190Rgdnddddnl (Bld) [Volume fraction]24.3 % Low34.0-46.4FWilson HealthComment on above:Performed By: #### RESP PANEL UPP., BIOFIRECOVNOTDE #### [place] [id number] USAHemoglobin [Mass/volume] in BloodOrdered By: Nabila Rao on 35-14-9517Ztwwcfzfmt (Bld) [Mass/Vol]8.0 g/dLLow11.8-15.4FWilson HealthComment on above:Performed By: #### RESP PANEL UPP., BIOFIRECOVNOTDE #### [facility] [address] [place] [address] USAINR in Platelet poor plasma by Coagulation assayOrdered By: Carlo Grimaldo on 25-95-0219DLA Coag (PPP) [Relative time]0.9 {INR}Normal [facility] John Medical CenterComment on above:INR Therapeutic Range A) [...] CK, BNP, BMP, CBC, PT, PTT #### [facility] [address] [place] [address] USALactate [Moles/volume] in Serum or PlasmaOrdered By: Nabila Rao on 84-36-2833Qubofmf [Moles/Vol]0.8 mmol/LNormal0.5-2.2FWilson HealthComment on above:Result Comment: PERFORMED BY: [place] [address] PATHOLOGIST GASTROENTEROLOGIST JOSÉ MIGUEL RON M.D.Performed By: #### RESP PANEL UPP., BIOFIRECOVNOTDE #### [facility] [address] [place] [address] USALeukocytes [#/volume] corrected for nucleated erythrocytes in Blood by Automated counOrdered By: Nabila Rao on 33-43-8287YZC corrected for nucl RBC Auto (Bld) [#/Vol]7.0 10*3/uL3.8-11.6FWilson HealthLeukocytes [#/volume] in Blood by Automated countOrdered By: Nabila Rao on 66-82-4803TFZ (Bld) [#/Vol]7.0 10*3/uLNormal3.8-11.6FWilson HealthComment on above:Performed By: #### RESP PANEL UPP., BIOFIRECOVNOTDE #### [place] [address] USALymphocytes [#/volume] in Blood by Automated countOrdered By: Nabila Rao on 34-42-7191Bctzvzzokfy (Bld) [#/Vol]1.3 10*3/uLNormal1.00-4.[address] John Medical CenterComment on above:Performed By: #### RESP PANEL UPP., BIOFIRECOVNOTDE #### [place] [address] USALymphocytes/100 leukocytes in Blood by Automated count Ordered By: Nabila Rao on 03-19-0606Ksvbjxfixhd/100 WBC (Bld)19.2 %Normal. [facility] John Medical CenterComment on above:Performed By: #### RESP PANEL UPP., BIOFIRECOVNOTDE #### [address] [Entitic mass] by Automated countOrdered By: Nabila Rao on 65-18-9524ZBO (RBC) [Entitic mass]30.4 jtLmbhdf23.7-34.3FWilson HealthComment on above:Performed By: #### RESP PANEL UPP., BIOFIRECOVNOTDE #### [address] Auto (RBC) [Mass/Vol]Ordered By: Nabila Rao on 49-17-0220WBUM (RBC) [Mass/Vol]32.9 g/dL32.0-35.0[facility] John Medical CenterMCV [Entitic volume] by Automated countOrdered By: Nabila Rao on 96-11-8906VFI (RBC) [Entitic vol]92.4 gXKwdgzg78-808WiyvtilhbUniversity Hospitals St. John Medical CenterComment on above:Performed By: #### RESP PANEL UPP., BIOFIRECOVNOTDE #### [facility] [address] [place] [address] USAMonocyte distribution width [Entitic volume] in Blood by AutomatedOrdered By: Nabila Rao on 15-49-2533Luqygouo distribution width Auto (Bld) [Entitic vol]23.33 %High0.00-20.00[facility] St. John Medical CenterComment on above:For adults in ED, MDW > 20.0 may be associated with a higher risk of sepsis during the first 12 hrs of hospital admissionThe predictive value of MDW for identifying sepsis in patients with hematological abnormalities has not been establishedNeutrophils [#/volume] in Blood by Automated countOrdered By: Nabila Rao on 50-26-9129Agyvhmutpxy (Bld) [#/Vol]5.0 10*3/uLNormal1.8-7.7FWilson HealthComment on above:Performed By: #### RESP PANEL UPP., BIOFIRECOVNOTDE #### [facility] [address] [id number] USANo Panel InformationOrdered By: Carlo Grimaldo on 44-60-9410Zmerc Occult Blood (JESS)[facility] John Medical CenterEstimated GFR (CKD-EPI)> 60.0 mL/MinUniversity Hospitals St. John Medical CenterPharmacy Creatinine Clearance (Chem56.97[facility] St. John Medical CenterNucleated erythrocytes [Presence] in Blood by Automated countOrdered By: Nabila Rao on 01-19-2024 Nucleated RBC Auto Ql (Bld)0.2 /100{WBC}0-0.5FWilson Health Partial Thromboplastin Timeon 32-88-1049nOAP Coag (Bld) [Time]31.2 sNormal 25.1-36.5The [facility] Physician GroupComment on above:Result Comment: A hematocrit value greater than 55% may lead to inaccurate results in coagulation testing. Patients having hematocrit values >55% require a special collection tube for coagulation studies. Please contact the laboratory at [phone] for redraw instructions. PERFORMED BY: [place] [address] PATHOLOGIST GASTROENTEROLOGIST JOSÉ MIGUEL RON M.D.Performed By: #### HS TROP, CK, BNP, BMP, CBC, PT, PTT #### [place] [address] USAPlatelet mean volume [Entitic volume] in Blood by Automated countOrdered By: Nabila Rao on 66-38-0436Rtfcvhsr mean volume (Bld) [Entitic vol]7.7 fLNormal6.3-10.7FWilson HealthComment on above:Performed By: #### RESP PANEL UPP., BIOFIRECOVNOTDE #### [place] [address] USAPlatelets [#/volume] in Blood by Automated countOrdered By: Nabila Rao on 71-05-7680Ijgldtwzf (Bld) [#/Vol]251 10*3/tMVzzdla961-[address] John Medical CenterComment on above:Performed By: #### RESP PANEL UPP., BIOFIRECOVNOTDE #### [place] [address] USAPotassium [Moles/volume] in Serum or PlasmaOrdered By: Carlo Grimaldo on 59-43-7562Azksvhjxr [Moles/Vol]3.5 mmol/LNormal3.5-5.1FWilson HealthComment on above:Performed By: #### HS TROP, CK, BNP, BMP, CBC, PT, PTT #### [place] [address] USAProthrombin time (PT)Ordered By: Carlo Grimaldo on 35-71-1555TP Coag (PPP) [Time]10.4 sNormal9.0-12.9[facility]. John Medical CenterComment on above:A hematocrit value greater than 55% may lead to inaccurate results in coagulation testing. Patientshaving hematocrit values >55% require a special collection tube for coagulation studies. Please contact the laboratory at [phone] for redraw instructions.Result Comment: A hematocrit value greater than 55% may lead to inaccurate results in coagulation testing. Patients having hematocrit values >55% require a special collection tube for coagulation studies. Please contact the laboratory at [phone] for redraw instructions.Performed By: #### HS TROP, CK, BNP, BMP, CBC, PT, PTT #### [address] [address] [facility]ICAL CENTERRespiratory (Upper) Panel, PCRon 29-81-0001Amgdmesbcuk (Upper) Panel, PCRAdenovirus Not detected Bordetella parapertussis [...] Influenza A H3 Blank Space PERFORMED BY: [address] [address] PATHOLOGIST GASTROENTEROLOGIST JOSÉ MIGUEL RON M.D.[facility] Physician GroupComment on above:Performed By: #### RESP PANEL UPP., BIOFIRECOVNOTDE #### [facility] [address] [id number] USARespiratory pathogens DNA and RNA panel - Nasopharynx by JANIA with non-probe detectionOrdered By: Carlo Grimaldo on 88-99-7001Pusqenogery pathogens DNA and RNA panel JANIA+non-probe (Nph)[facility] Serum or plasma anion gap determinationOrdered By: Carlo Grimaldo on 01-19-2024 Anion gap [Moles/Vol]13.8 mmol/LNormal6.0-15.0[facility] Comment on above:Performed By: #### HS TROP, CK, BNP, BMP, CBC, PT, PTT #### [place] [address] USASodium [Moles/volume] in Serum or PlasmaOrdered By: Carlo Grimaldo on 50-87-9896Xerinq [Moles/Vol]138 mmol/CXkadkc871-407JpwkztbtcUniversity Hospitals St. John Medical CenterComment on above:Performed By: #### HS TROP, CK, BNP, BMP, CBC, PT, PTT #### [place] [id number] USAStool Occult Bl. Scr. (Guaiac)on 18-72-1505Ddirn Occult Bl. Scr. (Guaiac)Occult Blood Negative for Occult Blood by Guaiac Methodology Reference range = Negative PERFORMED BY: [place] [address] PATHOLOGIST GASTROENTEROLOGIST JOSÉ MIGUEL RON M.D.[facility] Physician GroupComment on above:Performed By: #### HS TROP, CK, BNP, BMP, CBC, PT, PTT #### [address] [place] [id number] USATroponin I High Sensitivityon 58-82-7323Imzxsqbr I High Vfiegisjmic08.4 pg/mLHigh0.0-15.0[facility] Physician GroupComment on above: Result Comment: PERFORMED BY: [place] [address] PATHOLOGIST GASTROENTEROLOGIST JOSÉ MIGUEL RON M.D.Performed By: #### HS TROP, CK, BNP, BMP, CBC, PT, PTT #### [place] [address] USATroponin I High Ospdomzvcby23.7 pg/mLNormal0.0-15.0[facility] Physician GroupComment on above:Result Comment: PERFORMED BY: [place] [address] PATHOLOGIST GASTROENTEROLOGIST JOSÉ MIGUEL RON M.D.Performed By: #### HS TROP, CK, BNP, BMP, CBC, PT, PTT #### [place] [address] USATroponin I High Zqpezmpnros51.7 pg/mLNormal0.0-15.0[facility] Physician [facility] HospitalComment on above:Result Comment: PERFORMED BY: [place] [address] PATHOLOGIST GASTROENTEROLOGIST JOSÉ MIGUEL RON M.D.Performed By: #### HS TROP, CK, BNP, BMP, CBC, PT, PTT #### [place] [address] USATroponin I.cardiac [Mass/volume] in Serum or Plasma by Detection limit <= 0.01 ng/Ordered By: Carlo Grimaldo on 24-60-6286Mzzvvcag I.cardiac DL <= 0.01 ng/mL [Mass/Vol]14.7 pg/mL0.0-15.0[facility] John Medical CenterUrea nitrogen [Mass/volume] in Serum or PlasmaOrdered By: Carlo Grimaldo on 94-86-4002Aqdm nitrogen [Mass/Vol]11 mg/dLNormal7-25[facility] St. John Medical CenterComment on above:Performed By: #### HS TROP, CK, BNP, BMP, CBC, PT, PTT #### [facility] [address] [place] [address] USAXR chest 2V*on 45-38-2025IF chest 2V*[facility] [address] [place] [address] [place] [address] XRay Report Signed Patient: Jonatan Olivarez MR#: [id number] : 1960 Acct:[id number] Age/Sex: 63 / F ADM Date: 01/19/24 Loc: ER Room: Type: [facility] ER Attending Dr: Copies to: Carlo Grimaldo [...] Lindsey Menchaca M.D.01/19/2024 6:26 PM Dictation Location: [place] [address] Transcribed By: [facility] 01/19/241825 Dictated By: Lindsey Menchaca MD 01/19/241822 Signed By: 01/19/241825[facility] Physician GroupCBC AND AUTO DIFFon 01-18-2024 ABSOLUTE BASOPHIL0.2 X10E9/LNormal0.0-0.2[facility] - WestComment on above:Performed By: #### CBCA, 807[address]-2, CMP #### [facility] ([id number]) [address], [address] [place], [place] [address]MUIZUTGS NEUTROPHIL5.2 X10E9/LNormal1.5-6.6ProMedica Choudhary HospitalComment on above:Performed By: #### PRIYANK, , CMP #### [facility] ([id number]) [address], [address] [place], [place] [address]Rnakmwzuv/100 WBC (Bld)2.3 %NormalMcKitrick Hospital Comment on above:Performed By: #### PRIYANK, , CMP #### [facility] ([id number]) [address], [address] [place], [place] [address]Hslncpnzjhq (Bld) [#/Vol]0.3 10*3/uLNormal0.0-0.4ProBarnesville Hospital HospitalComment on above:Performed By: #### PRIYANK, , CMP #### [facility] ([id number]) [address], [address] [place], [place] [address]Bypsclxqulz/100 WBC (Bld)3.5 %NormalMcKitrick Hospital Comment on above:Performed By: #### PRIYANK, , CMP #### [facility] ([id number]) [address], [address] [place], [place] [address]Lyrsabjrozk distribution width (RBC) [Ratio]19.5 %High11.5-15.0 [facility] HospitalComment on above:Performed By: #### PRIYANK, , CMP #### [facility] ([id number]) [address], [address] [place], [place] [address]Rqwnjjktuj (Bld) [Volume fraction]24.1 %Paa14-81VywOnfhgp [facility] HospitalComment on above:Performed By: #### PRIYANK, , CMP #### [facility] ([id number]) [address], [address] [place], [place] [address]Xhxhdumdqd (Bld) [Mass/Vol]7.9 g/dLLow11.7-15.5Pro[facility] HospitalComment on above:Performed By: #### PRIYANK, , CMP #### [facility] ([id number]) [address], [address] [place], [place] [address]Ddsahmaikns (Bld) [#/Vol]1.6 10*3/uLNormal1.0-3.5ProMedSCCI Hospital Lima HospitalComment on above:Performed By: #### PRIYANK, , CMP #### [facility] ([id number]) [address], [address] [place], [place] [address]Ymduyplljly/100 WBC (Bld)20.4 %NormalProBarnesville Hospital Hospital Comment on above:Performed By: #### PRIYANK, , CMP #### [facility] ([id number]) [address], [address] [place], [place] [address]EFS (RBC) [Entitic mass]30.0 ggNjznky68-92BdhZwzthh [facility] HospitalComment on above:Performed By: #### PRIYANK, , CMP #### [facility] ([id number]) [address], [address] [place], [place] [address]SDQO (RBC) [Mass/Vol]32.9 g/qYRyvjkd28-49VpqAlqmyj [facility] HospitalComment on above:Performed By: #### PRIYANK, , CMP #### [facility] ([id number]) [address] [place], [place] [address]IME (RBC) [Entitic vol]91 cXXobxrl70-204DknIgpkkf [facility] HospitalComment on above:Performed By: #### PRIYANK, , CMP #### [facility] ([id number]) [address], [address] [place], [place] [address]Rixabwzmi (Bld) [#/Vol]0.7 10*3/uLNormal0-0.9Pro[facility]hary HospitalComment on above:Performed By: #### PRIYANK, , CMP #### [facility] ([id number]) [address], [address] [place], [place] [address]Arttlhqwj/100 WBC (Bld)8.6 %NormalMcKitrick Hospital Comment on above:Performed By: #### PRIYANK, , CMP #### [facility] ([id number]) [address], [address] [place], [place] [address]Alsburvqhgf/100 WBC (Bld)65.2 %NormalMcKitrick Hospital Comment on above:Performed By: #### PRIYANK, , CMP #### [facility] ([id number]) [address], [address] [place], [place] [address]Cvcxphwf mean volume (Bld) [Entitic vol]7.6 fLNormal7-12 [facility]hary HospitalComment on above:Performed By: #### PRIYANK, , CMP #### [facility] ([id number]) [address], [address] [place], [place] [address]Pvfacekiz (Bld) [#/Vol]275 10*3/pJKmmktt087-587BxqNhoxdr Choudhary HospitalComment on above:Performed By: #### PRIYANK, , CMP #### [facility] ([id number]) [address], [address] [place], [place] [address]DCW COUNT2.64 X10E12/LLow3.80-5.20[facility] Comment on above:Performed By: #### PRIYANK, , CMP #### [facility] ([id number]) [address], [address] [place], [place] [address]KWC (Bld) [#/Vol]7.9 10*3/uLNormal4.0-11.0Pro[facility]hary HospitalComment on above:Performed By: #### PRIYANK , CMP #### [facility] ([id number]) [address], [address] [place], [place] [address]YZYIKHYBXNWMM METABOLIC PANELon 87-83-0158Sluuqii [Mass/Vol]3.1 g/dLLow3.2-5.3[facility]hary HospitalComment on above:Performed By: #### PRIYANK , CMP #### [facility] ([id number]) [address], [address] [place], [place] [address]SLB [Catalytic activity/Vol]233 U/BSmdi92-999VcfAtmqjy [facility] HospitalComment on above:Performed By: #### PRIYANK , CMP #### [facility] ([id number]) [address], [address] [place], [place] [address]DEL [Catalytic activity/Vol]18 U/LNormal0-31ProMedSCCI Hospital Lima HospitalComment on above:Performed By: #### PRIYANK , CMP #### [facility] ([id number]) [address] [place], [place] [address]Bzmhi gap [Moles/Vol]6 mmol/LNormal5-15ProFlor[facility] Comment on above:Performed By: #### PRIYANK , CMP #### [facility] ([id number]) [address] [place], [place] [address]AOH [Catalytic activity/Vol]30 U/LNormal0-41Pro[facility]hary HospitalComment on above:Performed By: #### PRIYANK , CMP #### [facility] ([id number]) [address] [place], [place] [address]Iiiveqkqo [Mass/Vol]0.3 mg/dLNormal0.3-1.2[facility] HospitalComment on above:Performed By: #### PRIYANK, , CMP #### [facility] ([id number]) [address], [address] [place], [place] [address]Pjaekiz [Mass/Vol]8.3 mg/dLLow8.5-10.5PUniversity Hospitals [facility] Comment on above:Performed By: #### PRIYANK, , CMP #### [facility] ([id number]) [address], [address] [place], [place] [address]Mzwfggdx [Moles/Vol]99 mmol/HVwejwn77-744UnyFwndnj [facility] HospitalComment on above:Performed By: #### PRIYANK , CMP #### [facility] ([id number]) [address] [place], [place] [address]RA9 [Moles/Vol]34 mmol/TDamj04-32ZdgLzcmawUniversity Hospitals Samaritan Medical Center Comment on above:Performed By: #### PRIYANK, , CMP #### [facility] ([id number]) [address], [address] [place], [place] [address]Xvaewcjexe [Mass/Vol]0.67 mg/dLNormal0.40-1.00McKitrick HospitalComment on above:Result Comment: METHOD TRACEABLE TO IDMS STANDARD Performed By: #### PRIYANK, , CMP #### [facility] ([id number]) [address], [address] [place], [place] [address]pHYS (CKD-EPI) NON-RACE DEPENDENT>90Normal>59ProPike Community HospitalComment on above:Result Comment: Reported eGFR is based on the CKD-EPI 2020 equation that does not use a race coefficient.Performed By: #### PRIYANK, , CMP #### [facility] ([id number]) [address], [address] [place], [place] [address]Xxvnlxi [Mass/Vol]117 mg/fPRcsx28-71KlmAkhttdMcKitrick Hospital Comment on above:Performed By: #### PRIYANK , CMP #### [facility] ([id number]) [address] [place], [place] [address]Ctqeqqaof [Moles/Vol]4.3 mmol/LNormal3.5-5.0ProBarn[facility] Hospital HospitalComment on above:Performed By: #### PRIYANK , CMP #### [facility] ([id number]) [address], [address] [place] [address]Dvdjrlh [Mass/Vol]5.4 g/dLLow6.0-8.0ProP[facility] Comment on above:Performed By: #### PRIYANK , CMP #### [facility] ([id number]) [address] [place] [address]Oepfas [Moles/Vol]139 mmol/CJhwqnc377-406AlaIngoqi [facility] HospitalComment on above:Performed By: #### PRIYANK , CMP #### [facility] ([id number]) [address], [address] [place], [place] [address]Apxf nitrogen [Mass/Vol]16 mg/dLNormal5-27Pro[facility] HospitalComment on above:Performed By: #### PRIYANK , CMP #### [facility] ([id number]) [address], [address] [place], [place] [address]ULRDMUEBNdw 95-27-1898Suzwdlkrx [Mass/Vol]1.8 mg/dLNormal1.8-2.6 ProMSumma Health HospitalComment on above:Performed By: #### PRIYANK , CMP #### [facility] ([id number]) [address] [place], [place] [address]ZAV AND AUTO DIFFon 51-65-1522FXTAUNDB BASOPHIL0.1 X10E9/LNormal 0.0-0.2[facility] HospitalComment on above:Performed By: #### 44964-5, CBCA, CMP #### [facility] ([id number]) [address], [address] [place], [place] [address]PWXQVMQF NEUTROPHIL6.4 X10E9/LNormal1.5-6.6[facility] HospitalComment on above:Performed By: #### 78493-5, CBCA, CMP #### [facility] ([id number]) [address] [place], [place] [address]Bmgijxobt/100 WBC (Bld)1.6 %NormalMcKitrick Hospital Comment on above:Performed By: #### 23163-1, CBCA, CMP #### [facility] ([id number]) [address] [place], [place] [address]Ruamfkhrdwi (Bld) [#/Vol]0.3 10*3/uLNormal0.0-0.4ProBarn[facility] Hospital HospitalComment on above:Performed By: #### 54470-6, CBCA, CMP #### [facility] ([id number]) [address] [place], [place] [address]Yjfpbfqxanc/100 WBC (Bld)3.4 %NormalMcKitrick Hospital Comment on above:Performed By: #### 62265-6, CBCA, CMP #### [facility] ([id number]) [address], [address] [place], [place] [address]Scracnwashu distribution width (RBC) [Ratio]19.5 %High11.5-15.0 [facility] HospitalComment on above:Performed By: #### 24012-2, CBCA, CMP #### [facility] ([id number]) [address], [address] [place], [place] [address]Oiwuqndhgp (Bld) [Volume fraction]24.1 %Wah60-32NsgYgusac [facility]oudhary HospitalComment on above:Performed By: #### 60692-7, CBCA, CMP #### [facility] ([id number]) [address], [address] [place], [place] [address]Rilarsmvqm (Bld) [Mass/Vol]8.0 g/dLLow11.7-15.5PProMedica [facility] HospitalComment on above:Performed By: #### 68626-6, CBCA, CMP #### [facility] ([id number]) [address], [address] [place], [place] [address]Iebkoelfmeb (Bld) [#/Vol]1.7 10*3/uLNormal1.0-3.5PProMedica [facility] HospitalComment on above:Performed By: #### 49196-4, CBCA, CMP #### [facility] ([id number]) [address], [address] [place], [place] [address]Iwnbuvxyars/100 WBC (Bld)18.8 %NormalProBarnesville Hospital Hospital Comment on above:Performed By: #### 77503-2, CBCA, CMP #### [facility] ([id number]) [address], [address] [place], [place] [address]VNC (RBC) [Entitic mass]30.2 roJrskub39-31AptDhedxv [place] HospitalComment on above:Performed By: #### 99174-3, CBCA, CMP #### [facility] ([id number]) [address], [address] [place], [place] [address]RQQW (RBC) [Mass/Vol]33.3 g/nGXtwgvi68-06RqoXnkrta [place] HospitalComment on above:Performed By: #### 31743-1, CBCA, CMP #### [facility] ([id number]) [address], [address] [place], [place] [address]MRK (RBC) [Entitic vol]91 cMZjmsxy55-295LwqDkivyu [place] HospitalComment on above:Performed By: #### 93376-0, CBCA, CMP #### [facility] ([id number]) [address], [address] [place], [place] [address]Oggbutvjb (Bld) [#/Vol]0.7 10*3/uLNormal0-0.9ProWvumedicine Harrison Community Hospitalca [facility] HospitalComment on above:Performed By: #### 19447-6, CBCA, CMP #### [facility] ([id number]) [address], [address] [place], [place] [address]Wqfficuyg/100 WBC (Bld)7.2 %NormalMcKitrick Hospital Comment on above:Performed By: #### 43775-0, CBCA, CMP #### [facility] ([id number]) [address], [address] [place], [place] [address]Jjyiasjgqtp/100 WBC (Bld)69.0 %NormalMcKitrick Hospital Comment on above:Performed By: #### 11873-7, CBCA, CMP #### [facility] ([id number]) [address], [address] [place], [place] [address]Hysyzqmo mean volume (Bld) [Entitic vol]8.3 fLNormal7-12 [facility]oma HospitalComment on above:Performed By: #### 86017-2, CBCA, CMP #### [facility] ([id number]) [address], [address] [place], [place] [address]Opvtwhcnj (Bld) [#/Vol]288 10*3/vOLwutzi166-353AawCbnent Toledo HospitalComment on above:Performed By: #### 70805-5, CBCA, CMP #### [facility] ([id number]) [address], [address] [place], [place] [address]TPC COUNT2.66 X10E12/LLow3.80-5.20[facility] Comment on above:Performed By: #### 36422-6, CBCA, CMP #### [facility] ([id number]) [address], [address] [place], [place] [address]QID (Bld) [#/Vol]9.3 10*3/uLNormal4.0-11.0ProMedica Choudhary HospitalComment on above:Performed By: #### 98700-5, CBCA, CMP #### [facility] ([id number]) [address], [address] [place], [place] [address]RIASBPWNVOMBA METABOLIC PANELon 73-69-1401Febangd [Mass/Vol]3.1 g/dLLow3.2-5.3Pro[facility]ica Choudhary HospitalComment on above:Performed By: #### 55220-0, CBCA, CMP #### [facility] ([id number]) [address] [place], [place] [address]IHK [Catalytic activity/Vol]86 U/XBxgvug98-305WxgBpddpd Choudhary HospitalComment on above:Performed By: #### 97905-1, CBCA, CMP #### [facility] ([id number]) [address], [address] [place], [place] [address]VOJ [Catalytic activity/Vol]8 U/LNormal0-31ProMedSCCI Hospital Lima HospitalComment on above:Performed By: #### 24679-2, CBCA, CMP #### [facility] ([id number]) [address], [address] [place], [place] [address]Wvuts gap [Moles/Vol]9 mmol/LNormal5-15[facility] Comment on above:Performed By: #### 14669-7, CBCA, CMP #### [facility] ([id number]) [address], [address] [place], [place] [address]UPP [Catalytic activity/Vol]15 U/LNormal0-41Pro[facility] Choudhary HospitalComment on above:Performed By: #### 25679-9, CBCA, CMP #### [facility] ([id number]) [address], [address] [place], [place] [address]Znfxhxupu [Mass/Vol]0.3 mg/dLNormal0.3-1.2PUniversity Hospitals Samaritan Medical CenterComment on above:Performed By: #### 18935-8, CBCA, CMP #### [facility] ([id number]) [address], [address] [place], [place] [address]Upxuwmt [Mass/Vol]8.4 mg/dLLow8.5-10.5PUniversity Hospitals Samaritan Medical Center Comment on above:Performed By: #### 80730-6, CBCA, CMP #### [facility] ([id number]) [address], [address] [place], [place] [address]Vbijekcg [Moles/Vol]101 mmol/XUpaatp36-046CwfZnewcq Toledo HospitalComment on above:Performed By: #### 28673-2, CBCA, CMP #### [facility] ([id number]) [address], [address] [place], [place] [address]TS9 [Moles/Vol]31 mmol/AZfxlkk03-83TtxUrjtcmUniversity Hospitals Samaritan Medical Center Comment on above:Performed By: #### 81511-5, CBCA, CMP #### [facility] ([id number]) [address] [place], [place] [address]Lzpjbgfcoc [Mass/Vol]0.75 mg/dLNormal0.40-1.00ProPike Community HospitalComment on above:Result Comment: METHOD TRACEABLE TO IDMS STANDARD Performed By: #### 93864-5, CBCA, CMP #### [facility] ([id number]) [address], [address] [place], [place] [address]ZXD/1.73 sq M.predicted among non-blacks MDRD (S/P/Bld) [Vol rate/Area]89 mL/min/{1.73_m2}Normal>59ProPike Community HospitalComment on above: Result Comment: Reported eGFR is based on the CKD-EPI 2020 equation that does not use a race coefficient.Performed By: #### 13659-1CHANELLEA, CMP #### [facility] ([id number]) [address], [address] [place], [place] [address]Hzfyrgl [Mass/Vol]112 mg/yCUiyt01-36EmdKnhwzlPike Community Hospital Comment on above:Performed By: #### 24651-7, CBCA, CMP #### [facility] ([id number]) [address] [address] [place], [place] [address]Wpdhbgrqn [Moles/Vol]4.2 mmol/LNormal3.5-5.0ProPike Community HospitalComment on above:Performed By: #### 21986-9 CBCA, CMP #### [facility] ([id number]) [address] [place], [place] [address]Xfsvrxs [Mass/Vol]5.4 g/dLLow6.0-8.0[facility] Comment on above:Performed By: #### 13228-2, CBCA, CMP #### [facility] ([id number]) [address] [place], [place] [address]Ltnqyn [Moles/Vol]141 mmol/PTdpfsp789-600OatPbkfhv [place] HospitalComment on above:Performed By: #### 19714-3, CBCA, CMP #### [facility] ([id number]) [address] [place], [place] [address]Vsam nitrogen [Mass/Vol]17 mg/dLNormal5-27ProPike Community HospitalComment on above:Performed By: #### 52766-0, CBCA, CMP #### [facility] ([id number]) [address] [place], [place] [address]VMYFKLYXOll 43-33-4672Zrqbnfuay [Mass/Vol]2.0 mg/dLNormal1.8-2.6 [facility] HospitalComment on above:Performed By: #### 37178-6, CBCA, CMP #### [facility] ([id number]) [address] [place] [address], [address] [place], [place] [address]Uglzqrdi Pathologyon 71-00-2457Zmbcrfjh PathologyNormalProMedica Lake County Memorial Hospital - WestComment on above:Result Comment: [facility] [address] [place] [address] Surgical Pathology Consultation Patient Name:JONATAN OLIVAREZ:1960 (Age: 63)Gender:FTaken:4Reported:01/22/2024hysician(s):Jazmine Barnard MD ([phone])Copy To: Rec. #:[id number]: #[id number] Final Pathologic Diagnosis 1. Gastric ulcer biopsy: Reactive gastritis/gastropathy. No dysplasia or intestinal metaplasia identified. Immunohistochemical stain for Helicobacter pylori is negative. 2. Distal esophageal biopsy: Squamous esophageal and cardiac type mucosa showing active chronic inflammation and reactive squamous changes suggestive of reflux injury. No dysplasia or goblet cell metaplasia identified. Report Electronically Signed Out ao/01/22/2024donte Bowman MD Interpretation performed at [facility], [address] [place] [address], License number: [id number]. Clinical History Upper GI bleed. 1. r/o h. pylori. 2. r/o barretts. Gross Description 1. Received in formalin labeled, SHER, gastric ulcer are 4 sanchez delicate, focally erythematous soft tissue fragments, 0.4-0.5 cm in greatest dimension. The specimens are filtered and submitted insingle cassette. (1, ns, [id number], m3) TB 2. Received in formalin labeled, SHER, esophageal distal biopsy are 5 pale- sanchez delicate soft tissue bits, 0.1-0.4 cm in greatest dimension. The specimens are filtered and submitted in single cassette. (1, ns, [id number], m3) [facility]/01/17/2024GR Specimen(s) Received 1: ulcer, gastric 2: Esophageal distal biopsy Fee Codes(s): 1; 38974 2; 34502DNUMN OCCULT BLOODon 05-47-8636Ehnmraymwk.gastrointestinal Ql (Stl) PositiveAbnormalNEGProGrace Medical CenterComment on above:Performed By: #### 2335-8 ####[facility] ([id number])[address] [place] [address]TFN AND HCTon 94-68-8440Kkwggqhplh (Bld) [Volume fraction] 37.0 %Rsnzkr73-54FpcCkzvsuGrace Medical CenterComment on above:Performed By: #### HH ####[facility] ([id number])[address] [place] [address]Tjnchmdclr (Bld) [Mass/Vol]12.4 g/aQDfnozc41.7-15.5 ProMedicScripps Memorial HospitalComment on above:Performed By: #### HH ####[facility] ([id number])[address] [place] [address]Vhticpm (P nathalie) [Moles/Vol]on 96-48-3650RYYEDDZ W/REFLEX1.3 mmol/LNormal 0.4-2.0ProGrace Medical CenterComment on above:Result Comment: Result did not trigger repeat Lactate,re-order if needed.Performed By: #### 82904-3 ####[facility] ([id number])[address] [place] [address]JQRWQRHHPri 59-98-4812Mstjcmkkt [Mass/Vol]2.2 mg/dLNormal 1.8-2.6ProGrace Medical CenterComment on above:Performed By: #### 76870-5, 2823-3 ####[facility] ([id number])[address] [place] [address]KIELOHSEAfr 33-91-1975Jgcmadgar [Moles/Vol]4.1 mmol/L Normal3.5-5.0ProGrace Medical CenterComment on above:Performed By: #### 96347-1, 2823-3 ####[facility] ([id number])[address] [place] [address]VOXYBR BLOOD GASon 78-67-3858HAWVJ'S TESTNormal [facility] Baldwin Park HospitalComment on above:Performed By: #### VBG ####[facility] ([id number])[address] [place] [address]Uvmd excess Calc (Bld) [Moles/Vol]4.0 mmol/LHigh0.0-2.0ProGrace Medical CenterComment on above:Performed By: #### VBG ####[facility] ([id number])[address] [place] [address]Ezwl temperature 98.6 [degF]Nyqzja07.0ProGrace Medical CenterComment on above:Performed By: #### VBG ####[facility] ([id number])[address] [place] [address]SGJ1 (Bld) [Moles/Vol]30.3 mmol/LHigh20.0-24.0ProGrace Medical CenterComment on above:Performed By: #### VBG ####[facility] ([id number])[address] [place] [address]NZDE. O2 CONC.28 %NormalProGrace Medical CenterComment on above:Performed By: #### VBG ####[facility] ([id number])[address] [place] [address]Fxmkfj saturation in Blood99.0 %Normal>80.0Fisher-Titus Medical CenterComment on above:Performed By: #### VBG ####[facility] ([id number])[address] [place] [address], [place] [address]BWCQFT SOURCERoomAirNoSt. Francis HospitalComment on above:Performed By: #### VBG ####[facility] ([id number])[address] [place] [address], [place] [address]MAY3, CWJWCA71.0 OGYUClis33-15RgtOfpfprFisher-Titus Medical Center Comment on above:Performed By: #### VBG ####[facility] ([id number])[address] [place] [address], [place] [address]GG, VENOUS7.357 Normal7.320-7.420ProGrace Medical CenterComment on above:Performed By: #### VBG ####[facility] ([id number])[address] [place] [address], [place] [address]YW9, CEMJER160 VURLTbjl10-65DvsKgszuuFisher-Titus Medical Center Comment on above:Performed By: #### VBG ####[facility] ([id number])[address] [place] [address]AFNULP SITEN/A NormalFisher-Titus Medical CenterComment on above:Performed By: #### VBG ####[facility] ([id number])[address] [place] [address], [place] [address]RHYNFJ TYPEVENOUSNoSt. Francis HospitalComment on above:Performed By: #### VBG ####[facility] ([id number])[address] [place] [address]WS CHEST 2 VWSon 19-54-5526OR CHEST 2 SNoSt. Francis HospitalCult,Urineon 48-83-7892Zobf,UrineSpecimen Description .CLEAN CATCH URINE Special Requests Site: [...] <=4 SUSCEPTIBLE Tobramycin <=1 SUSCEPTIBLE Trimethoprim/Sulfa >=320 RESISTANTResistantMAkron Children's HospitalComment on above:Performed By: #### RADHA BOWMANX #### [address] [place] [address] Supervisor Grading: Stacy Mckenzie Natri. Peptideon 07-89-1434Xwopgcsonvi peptide B (Bld) [Mass/Vol]7206 pg/mLHigh0-125MerCharlotte Hungerford HospitalComment on above:Performed By: #### YULISAX, CDP #### [address] [place] [address] Supervisor Grading: ANNITA Mckenzie with Diffon 80-67-2957Rut. Basophil0.06 k/uL Normal0.00-0.20MerCleveland Clinic HospitalComment on above:Performed By: #### YULISAX, CDP #### [address] [place], [facility] Supervisor Grading: Cruz Mckenzie.Imm.Granulocyte0.04 k/uLNormal0.00-0.30MerCleveland Clinic HospitalComment on above:Performed By: #### YULISAX, CDP #### [address] [place], [place] [address]483 Supervisor Grading: Cruz Mckenzie.Neutrophil (Seg)8.64 k/uLHigh1.50-8.10MerCleveland Clinic HospitalComment on above:Performed By: #### CMPX, CDP #### [address] [place], [place] 95[address]83 Supervisor Grading: Apolinar Lemus MDBasophils/100 WBC (Bld)1 %Normal0-2Mer[facility] HospitalComment on above:Performed By: #### CMPX, CDP #### [address] [place], [facility]83 Supervisor Grading: Apolinar Lemus MDEosinophils (Bld) [#/Vol]0.03 10*3/uLNormal 0.00-0.44Mer[facility] HospitalComment on above:Performed By: #### CMPX, CDP #### [address] [place], [facility] Supervisor Grading: JADEN Mckenzieosinophils/100 WBC (Bld)0 %Low1-4MerCleveland Clinic HospitalComment on above:Performed By: #### CMPX, CDP #### [address] [place], [facility]83 Supervisor Grading: Apolinar Lemus MDErythrocyte distribution width (RBC) [Ratio]16.9 % High11.8-14.4[facility] HospitalComment on above:Performed By: #### CMPX, CDP #### [address] [place], [facility]83 Supervisor Grading: Apolinar Lemus MDHematocrit (Bld) [Volume fraction]41.8 %Normal 36.3-47.1Mer[facility] HospitalComment on above:Performed By: #### CMPX, CDP #### [address] [place], [facility]83 Supervisor Grading: Apolinar Lemus MDHemoglobin (Bld) [Mass/Vol]13.7 g/dLNormal 11.9-15.1Mer[facility] HospitalComment on above:Performed By: #### CMPX, CDP #### [address] [place], [place] 0338283 Supervisor Grading: Raine Mckenzieture granulocytes/100 WBC (Bld)0 %Hjoafs7WhtnmBellevue HospitalComment on above:Performed By: #### CMPX, CDP #### [address] [place], [place] 0[address]83 Supervisor Grading: Eden Mckenziemphocytes (Bld) [#/Vol]0.77 10*3/uLLow1.10-3.[address] [address] HospitalComment on above:Performed By: #### CMPX, CDP #### [address] [place], [place] 6957883 Supervisor Grading: Eden Mckenziemphocytes/100 WBC (Bld)8 %Nzi63-59Jvoew [facility]iffin HospitalComment on above:Performed By: #### CMPX, CDP #### [address] [place], [place] 1004983 Supervisor Grading: BUZZ MckenzieCH (RBC) [Entitic mass]30.0 ryWogrcb14.2-33.[address] [facility] HospitalComment on above:Performed By: #### CMPX, CDP #### [address] [place] [address] Supervisor Grading: ELLA MckenzieC (RBC) [Mass/Vol]32.8 g/oSHvltbo12.4-34.8[facility] HospitalComment on above:Performed By: #### CMPX, CDP #### [address] [place] [address] Supervisor Grading: BUZZ MckenzieCV (RBC) [Entitic vol]91.5 eVFesxea84.6-102.[address] HospitalComment on above:Performed By: #### CMPX, CDP #### [address] [place] [address] Supervisor Grading: BUZZ Mckenzieonocytes (Bld) [#/Vol]0.44 10*3/uLNormal0.10-1.20 [facility] HospitalComment on above:Performed By: #### CMPX, CDP #### [address] [place], [place] 1829683 Supervisor Grading: BUZZ Mckenzieonocytes/100 WBC (Bld)4 %Normal3-12[facility] HospitalComment on above:Performed By: #### CMPX, CDP #### [address] [place] [address] Supervisor Grading: Guerda Mckenzieutrophil (Seg)87 %Ynjf18-41ZfcfzBellevue Hospital Comment on above:Performed By: #### CMPX, CDP #### [address] [place], [facility]83 Supervisor Grading: Apolinar Lemus MDNRBC Automated0.0 per 100 WBCNormal0.0[facility] HospitalComment on above:Performed By: #### CMPX, CDP #### [address] [place], [place] 970[address]83 Supervisor Grading: Rajat Mckenzietezee mean volume (Bld) [Entitic vol]9.0 fL Normal8.1-13.5[facility] HospitalComment on above:Performed By: #### CMPX, CDP #### [address] [place], [place] 8505483 Supervisor Grading: ROJAS Mckenzielatelets (Bld) [#/Vol]200 10*3/pHIkhfmo229-997 [facility] HospitalComment on above:Performed By: #### CMPX, CDP #### [address] [place], [place] 4064483 Supervisor Grading: GEOVANY Mckenzie ([facility]) [#/Vol]4.57 10*6/uLNormal3.95-5.11[facility] HospitalComment on above:Performed By: #### CMPX, CDP #### [address] [place], [place] 2608783 Supervisor Grading: RAZA Mckenzie ([facility]) [#/Vol]10.0 10*3/uLNormal3.5-11.3MMagruder Hospital HospitalComment on above:Performed By: #### CMPX, CDP #### [address] [place], [place] 8618783 Supervisor Grading: ANNITA Mckenzieomp Metabolic Profon 45-54-3535Mrftbwy [Mass/Vol] 3.4 g/dLLow3.5-5.2MMagruder Hospital HospitalComment on above:Performed By: #### CMPX, CDP #### [address] [place] [address] Supervisor Grading: Apolinar Lemus MDAlbumin/Glob Ratio1.2Fnzlqe8.0-2.5[facility] HospitalComment on above:Performed By: #### CMPX, CDP #### [address] [place], [place] 6305283 Supervisor Grading: Germania Mckenziekaline Lajv030 U/CUvhx93-759Pufgs [facility]iffin HospitalComment on above:Performed By: #### CMPX, CDP #### [facility] [address] [place] [address] Dr[address] [place], [place] 0797483 Supervisor Grading: Apolinar Lemus MDALT [Catalytic activity/Vol]24 U/ZGyubzz77-11Tdpxd [facility] HospitalComment on above:Performed By: #### CMPX, CDP #### [facility] [address] [place] [address] Dr[address] [place], [place] 4786883 Supervisor Grading: Apolinar Sturtz, MDAnion gap [Moles/Vol]14 mmol/LNormal9-16[facility] HospitalComment on above:Performed By: #### CMPX, CDP #### [address] [place], [place] 4302083 Supervisor Grading: Apolinar Lemus MDAST [Catalytic activity/Vol]22 U/AUlhvpx72-73YvajpBellevue HospitalComment on above:Performed By: #### CMPX, CDP #### [address] [place] [address] Supervisor Grading: Apolinar Lemus MDBilirubin [Mass/Vol]mg/dLNormal0.00-1.20[facility] HospitalComment on above:Performed By: #### CMPX, CDP #### [address] [place], [place] 1509083 Supervisor Grading: Apolinar Lemus MDBUN/CRE Kleaz70Nmafnb5-96Orrud [facility] Comment on above:Performed By: #### CMPX, CDP #### [address] [place] [address] Supervisor Grading: Apolinar Lemus MDCalcium [Mass/Vol]8.6 mg/dLNormal8.6-10.4[facility] HospitalComment on above:Performed By: #### CMPX, CDP #### [address] [place] [address] Supervisor Grading: Apolinar Lemus, MDChloride [Moles/Vol]100 mmol/PMislja50-833SupqiBellevue HospitalComment on above:Performed By: #### CMPX, CDP #### [address] [place], [place] 6186283 Supervisor Grading: Apolinar Lemus MDCO2 [Moles/Vol]20 mmol/QVpleum95-70Mrwwt [facility] HospitalComment on above:Performed By: #### CMPX, CDP #### [address] [place] [address] Supervisor Grading: ANNITA Mckenziereatinine [Mass/Vol]1.4 mg/dLHigh0.50-0.90[facility] HospitalComment on above:Performed By: #### CMPX, CDP #### [address] [place] [address] Supervisor Grading: Apolinar Lemus MDGFR/1.73 sq M.predicted among non-blacks MDRD (S/P/Bld) [Vol rate/Area]44 mL/min/{1.73_m2}Low>60MerCharlotte Hungerford HospitalComment on above:Result Comment: These results are [...] tubular secretion.Performed By: #### CMPX, CDP #### [address] [place] [address] Supervisor Grading: Apolinar Lemus MDGlucose [Mass/Vol]111 mg/oKSush16-22Ojjvb Nashville HospitalComment on above:Performed By: #### CMPX, CDP #### [address] [place] [address] Supervisor Grading: ROJAS Mckenzieotassium [Moles/Vol]4.2 mmol/LNormal3.7-5.3MMagruder Hospital HospitalComment on above:Performed By: #### CMPX, CDP #### [address] [place] [address] Supervisor Grading: Apolinar Lemus MDProtein [Mass/Vol]6.3 g/dLLow6.6-8.7[facility] HospitalComment on above:Performed By: #### CMPX, CDP #### [facility] [address] [place] [address] Supervisor Grading: ADÁN Mckenzieodium [Moles/Vol]134 mmol/XYns307-937UquqmBellevue HospitalComment on above:Performed By: #### CMPX, CDP #### [facility] [address] [place] [address] Supervisor Grading: Apolinar Lemus MDUrea nitrogen [Mass/Vol]17 mg/dLNormal8-23[facility] HospitalComment on above:Performed By: #### CMPX, CDP #### [address] [place] [address] Supervisor Grading: DA Mckenzie-Dimer Teston 42-58-8009H-Dimer Test3.58 ug/mL FEUHigh0.00-0.59[facility] HospitalComment on above:Result Comment: When combined with [...] distal DVT.Performed By: #### CMPX, CDP #### [facility] [address] [place] [address] Supervisor Grading: Jaleel Mckenzie, Sepsison 70-10-1614Maqkdc Acid, Sepsis0.9 mmol/LNormal0.5-1.9[facility] HospitalComment on above:Performed By: #### GLYHGB #### [facility] [address] [place], [place] 160[address] Supervisor Grading: JULISSA Cardozo-CoV-2on 06-88-4102BKZN-CoV-2 (COVID-19) RNA JANIA+probe Ql (Unsp spec)Not detectedNormalNOTDEProMedica Toledo HospitalComment on above:Result Comment: Rapid NAAT: The specimen [...] management decisions. Fact sheet for Healthcare Providers: https://www.fda.gov/media/688231/download Fact sheet for Patients: https://www.fda.gov/media/285214/download Methodology: Isothermal Nucleic Acid AmplificationPerformed By: #### GLYHGB #### [facility] [address] [place], [place] 3193408 Supervisor Grading: Rivera Cardozooponinon 27-86-6348Ggqdszny, High Sens35 ng/L High0-14[facility] HospitalComselect specialty hospital-pontiac on above:Result Comment: High Sensitivity Troponin values cannot be compared with other Troponin methodologies.Performed By: #### DAREKO UAX #### [facility] [address] [place], [place] [phone] Supervisor Grading: Katerina Mckenzie High Sens33 ng/LHigh0-14[facility] HospitalComment on above:Result Comment: High Sensitivity Troponin values cannot be compared with other Troponin methodologies.Performed By: #### GLYHGB #### [facility] [address] [place], [place] 9707308 Supervisor Grading: LEEANN Cardozo w/Reflex Cultureon 15-67-9880Lletebgsv, SemiQt,UrNegativeNormalNEGBellevue HospitalComment on above:Performed By: #### UMICAO, UAX #### [facility] [address] [place], [place] 664[address]83 Supervisor Grading: Lai Mckenzie, UrineNegativeSt. Anthony's Hospital Comment on above:Performed By: #### UMICAO, UAX #### [facility] [address] [place], [place] 9[address]2083 Supervisor Grading: Lakesha Mckenzierity (U)SLIGHTLY CLOUDYAbnormalCLEARMercVeterans Administration Medical CenterComment on above:Performed By: #### UMICAO, UAX #### [facility] [address] [place] [address] Dr[address] [place], [place] 5833283 Supervisor Grading: ANNITA Mckenzieolor (U)YellowNormalYGreene Memorial Hospital Comment on above:Performed By: #### UMICAO, UAX #### [facility] [address] [place], [place] 9479483 Supervisor Grading: Rayne Mckenzie Ql (U)NegativeNormalNEGBellevue HospitalComment on above:Performed By: #### UMICAO, UAX #### [facility] [address] [place], [place] [id number] Supervisor Grading: Apolinar Sturtz, MDKetones Ql (U)NegativeNormalNEGMercy Health St. Anne Hospital HospitalComment on above:Performed By: #### DAREKO, UAX #### [facility] [address] [place] [address] Dr. [place], [place] [id number] Supervisor Grading: Apolinar Lemus MDLeukocyte esterase Test strip Ql (U)SMALLAbnormal NEGBellevue HospitalComment on above:Performed By: #### GRACIE, UAX #### [facility] [address] [place] [address] Dr. [place], [place] [id number] Supervisor Grading: Stephanie Mckenzietrite,UrNegativeNormalNEGOhiohealth Berger Hospital on above:Performed By: #### GRACIE, UAX #### [address] [place], [place] [id number] Supervisor Grading: ROJAS Mckenzie,[id number] HospitalComment on above:Performed By: #### GRACIE, UAX #### [address] [place], [place] [id number] Supervisor Grading: Noelle Mckenzie Ql (U)2+ mg/dLAbnormalNEGBellevue HospitalComment on above:Performed By: #### GRACIE, UAX #### [facility] [address] [place] [address] Dr. [place], [place] [id number] Supervisor Grading: ADÁN Mckenziepec. [place],[id number] HospitalComment on above:Performed By: #### GRACIE, UAX #### [facility] [address] [place] [address] Dr[address] [place], [place] [id number] Supervisor Grading: Tahmina Mckenziebilinogen,UrNormalNormal0.0-1.0[facility] HospitalComment on above:Performed By: #### DAREKO, UAX #### [facility] [address] [place], [place] [id number] Supervisor Grading: Apolinar Lemus MDUrinalysis,Microon 49-79-8205Cvcfkmed9+Abnormal NONEMercy Nashville HospitalComment on above:Performed By: #### GRACIE, UAX #### [facility] [address] [place], [place] [phone] Supervisor Grading: Apolinar Lemus MDEpithelial cells LM Ql (Urine sed)2 TO 1Vkihey1-[address] [facility] HospitalComment on above:Performed By: #### GRACIE UAX #### [facility] [address] [place], [place] [id number] Supervisor Grading: Apolinar Lemus MDEpithelial, Renal0 TO 1Jlfzrw1Oikfn [place] HospitalComment on above:Performed By: #### GRACIE UAX #### [facility] [address] [place], [place] [phone] Supervisor Grading: Apolinar Lemus MDUrine RBC's0 TO 5Rxwluw1-4Lxidc [facility] Comment on above:Performed By: #### GRACIE UAX #### [facility] [address] [place], [place] [phone] Supervisor Grading: Apolinar Lemus MDUrine WBC's5 TO 26Ykqhvk0-8Czzbn [facility] Comment on above:Performed By: #### GRACIE UAX #### [facility] [address] [place] [address] Supervisor Grading: BRYCE Mckenzie CHEST PORTABLEon [id number] CHEST PORTABLE EXAMINATION: ONE XRAY VIEW OF [...] Signed by: Diego Alcantara MD 01/02/24 Final resultNoMercy Health Allen HospitalXR TIBIA FIBULA LEFT (2 VIEWS)on 12-42-4879GR TIBIA FIBULA LEFT (2 VIEWS)EXAMINATION: 2 XRAY [...] Signed by: Zach Jacobs MD 01/02/24 Final resultNoMercy Health Allen HospitalBasic Metab w/rfx MGon 32-21-4339Faosq gap [Moles/Vol]15 mmol/LNormal9-17[facility] HospitalComment on above:Performed By: #### ELY BMPX #### [employer] [address] [place] [address] Supervisor Grading: ANNITA Cardozoalcium [Mass/Vol]9.1 mg/dLNormal8.6-10.4[facility] HospitalComment on above:Performed By: #### ELY BMPX #### [employer] [address] [place] [address] [phone] Supervisor Grading: Mark Liriano MDChloride [Moles/Vol]96 mmol/CBcc93-154YobkrMercy Health St. Joseph Warren HospitalComment on above:Performed By: #### CDP, BMPX #### [facility] [address] [place] [address] Supervisor Grading: Mark Liriano MDCO2 [Moles/Vol]26 mmol/KSileki56-08FflxmMercy Health St. Joseph Warren HospitalComment on above:Performed By: #### CDP, BMPX #### [facility] [address] [place] [address] Supervisor Grading: ANNITA Cardozoreatinine [Mass/Vol]0.8 mg/dLNormal0.5-0.9[facility] HospitalComment on above:Performed By: #### ELY, BMPX #### [facility] [employer] [address] [place] [address] Supervisor Grading: Mark Liriano MDGFR/1.73 sq M.predicted among non-blacks MDRD (S/P/Bld) [Vol rate/Area]mL/min/{1.73_m2}Normal>60[facility] HospitalComment on above:Result Comment: These results are [...] By: #### ELY, BMPX #### [facility] [address] [place] [address] Supervisor Grading: Mark Liriano MDGlucose [Mass/Vol]240 mg/oZVhwu77-86LwqelMercy Medical Center Merced Community CampusComment on above:Performed By: #### CDP, BMPX #### [facility] [address] [place] [address] Supervisor Grading: ROJAS Cardozootassium [Moles/Vol]4.3 mmol/LNormal3.7-5.[address] [facility] HospitalComment on above:Performed By: #### CDP, BMPX #### [address] [address] Supervisor Grading: ADÁN Cardozoodium [Moles/Vol]137 mmol/CFwzvrm164-049BhgbmMercy Health St. Joseph Warren HospitalComment on above:Performed By: #### CDP, BMPX #### [address] [address] Supervisor Grading: Mark Liriano MDUrea nitrogen [Mass/Vol]22 mg/dLNormal8-23[facility] HospitalComment on above:Performed By: #### CDP, BMPX #### [address] [address] Supervisor Grading: Heath Cardozo 97-03-8173Acxretgetgy distribution width (RBC) [Ratio]18.6 %High11.8-14.4[facility] HospitalComment on above:Performed By: #### BMP, BNP, MG, CBC #### [address] [address] Supervisor Grading: BUZZ CardozoCH (RBC) [Entitic mass]28.3 ueIpvvkd31.2-33.[address] [facility] HospitalComment on above:Performed By: #### BMP, BNP, MG, CBC #### [facility] [employer] [address] [place] [address] Supervisor Grading: BUZZ CardozoCHC (RBC) [Mass/Vol]30.3 g/xOHgeujr77.4-34.[address] [facility] HospitalComment on above:Performed By: #### BMP, BNP, MG, CBC #### [facility] [employer] [address] [place] [address] Supervisor Grading: BUZZ CardozoCV (RBC) [Entitic vol]93.5 uZHaoznh93.6-102.[address] [facility] HospitalComment on above:Performed By: #### BMP, BNP, MG, CBC #### [facility] [employer] [address] [place] [address] Supervisor Grading: SVETLANA Cardozo Automated0.3 per [address] [facility] HospitalComment on above:Performed By: #### BMP, BNP, MG, CBC #### [facility] [employer] [address] [place] [address] Supervisor Grading: Nicanor Cardozo mean volume (Bld) [Entitic vol]10.4 fL Normal8.1-13.5[facility] HospitalComment on above:Performed By: #### BMP, BNP, MG, CBC #### [address] [address] Supervisor Grading: Corey Cardozo (Bld) [#/Vol]214 10*3/zORzjtlg827-[address] [facility] HospitalComment on above:Performed By: #### BMP, BNP, MG, CBC #### [address] [address] Supervisor Grading: GEOVANY Cardozo (Bld) [#/Vol]4.45 10*6/uLNormal3.95-5.[address] [facility] HospitalComment on above:Performed By: #### BMP, BNP, MG, CBC #### [facility] [employer] [address] [place] [address] Supervisor Grading: RAZA Cardozo (Bld) [#/Vol]6.0 10*3/uLNormal3.5-11.3MMercy Medical Center Merced Community CampusComment on above:Performed By: #### BMP, BNP, MG, CBC #### [facility] [employer] [address] [place] [address] Supervisor Grading: Mark Liriano MDHematocrit (Bld) [Volume fraction]41.0 %Normal 36.3-47.1MMercy Medical Center Merced Community CampusComment on above:Performed By: #### BMP, BNP, MG, CBC #### [address] [address] Supervisor Grading: Mark Liriano MDHemoglobin (Bld) [Mass/Vol]12.6 g/dLNormal 11.9-15.1MMercy Medical Center Merced Community CampusComment on above:Performed By: #### BMP, BNP, MG, CBC #### [address] [address] Supervisor Grading: FELISHA Cardozo with Diffon 08-58-7723Otz. Basophil<0.03 Normal0.00-0.20[facility] HospitalComment on above:Performed By: #### CDP, BMPX #### [address] [address] Supervisor Grading: Cruz Cardozo. Eosinophil<0.16Hfuvsx8.00-0.44[facility] HospitalComment on above:Performed By: #### CDP, BMPX #### [address] [address] Supervisor Grading: Cruz Cardozo.Imm.Granulocyte0.04 k/uLNormal0.00-0.30[facility] HospitalComment on above:Performed By: #### CDP, BMPX #### [address] [address] Supervisor Grading: Cruz Cardozo.Neutrophil (Seg)5.37 k/uLNormal1.50-8.[address] [facility] HospitalComment on above:Performed By: #### CDP, BMPX #### [address] [phone] Supervisor Grading: Mark Liriano MDBasophils/100 WBC (Bld)0 %Normal0-2[facility] Medical CenterComment on above:Performed By: #### CDP, BMPX #### [facility] [address] [place] [address] Supervisor Grading: Mark Liriano MDEosinophils/100 WBC (Bld)0 %Low1-4MerSutter Auburn Faith HospitalComment on above:Performed By: #### CDP, BMPX #### [facility] [address] [place] [address] Supervisor Grading: Mark Liriano MDErythrocyte distribution width (RBC) [Ratio]18.5 %High11.8-14.4[facility] HospitalComment on above:Performed By: #### ELY, BMPX #### [address] [address] Supervisor Grading: Mark Liriano MDHematocrit (Bld) [Volume fraction]43.8 %Normal 36.3-47.1[facility] Medical CenterComment on above:Performed By: #### ELY, BMPX #### [address] [address] Supervisor Grading: Mark Liriano MDHemoglobin (Bld) [Mass/Vol]13.5 g/dLNormal 11.9-15.1[facility] Medical CenterComment on above:Performed By: #### CDP, BMPX #### [facility] [address] [place] [address] Supervisor Grading: Mark Liriano MDImmature granulocytes/100 WBC (Bld)1 %Jsfh6HqcnuMercy Health St. Joseph Warren HospitalComment on above:Performed By: #### CDP, BMPX #### [facility] [address] [place] [address] Supervisor Grading: Mark Liriano MDLymphocytes (Bld) [#/Vol]0.75 10*3/uLLow 1.10-3.70[facility] HospitalComment on above:Performed By: #### CDP, BMPX #### [address] [address] Supervisor Grading: Mark Liriano MDLymphocytes/100 WBC (Bld)11 %Khg75-93OtcdrMercy Health St. Joseph Warren HospitalComment on above:Performed By: #### CDP, BMPX #### [address] [address] Supervisor Grading: BUZZ CardozoCH (RBC) [Entitic mass]28.1 drAvpeqx96.2-33.[address] [facility] HospitalComment on above:Performed By: #### ELY, BMPX #### [address] [address] Supervisor Grading: BUZZ CardozoCHC (RBC) [Mass/Vol]30.8 g/gSRbbgfk69.4-34.[address] [facility] HospitalComment on above:Performed By: #### ELY, BMPX #### [address] [address] Supervisor Grading: BUZZ CardozoCV (RBC) [Entitic vol]91.1 iEZbihok09.6-102.[address] [facility] HospitalComment on above:Performed By: #### ELY, BMPX #### [address] [address] Supervisor Grading: BUZZ Cardozoonocytes (Bld) [#/Vol]0.58 10*3/uLNormal 0.10-1.20[facility] HospitalComment on above:Performed By: #### ELY, BMPX #### [address] [address] Supervisor Grading: Mark Madoff, MDMonocytes/100 WBC (Bld)9 %Normal3-12[facility] HospitalComment on above:Performed By: #### CDP, BMPX #### [address] [address] Supervisor Grading: Mark Liriano MDNeutrophil (Seg)79 %Kkyo57-64LixgfMercy Health St. Joseph Warren HospitalComment on above:Performed By: #### CDP, BMPX #### [address] [address] Supervisor Grading: Mark Liriano MDNRBC Automated0.0 per [address] [facility] HospitalComment on above:Performed By: #### CDP, BMPX #### [address] [address] Supervisor Grading: Rajat Cardozotezee mean volume (Bld) [Entitic vol]10.2 fL Normal8.1-13.5[facility] HospitalComment on above:Performed By: #### ELY, BMPX #### [address] [address] Supervisor Grading: ROJAS Cardozolatelets (Bld) [#/Vol]175 10*3/eLOpgprn292-[address] [facility] HospitalComment on above:Performed By: #### CDP, BMPX #### [address] [address] Supervisor Grading: Mark Liriano MDRBC (Bld) [#/Vol]4.81 10*6/uLNormal3.95-5.[address] [facility] HospitalComment on above:Performed By: #### CDP, BMPX #### [address] [address] Supervisor Grading: GEOVANY Cardozo morphology finding Nom (Bld)ANISOCYTOSIS PRESENTNormalMerSutter Auburn Faith HospitalComment on above:Performed By: #### CDP, BMPX #### [address] [address] Supervisor Grading: RAZA Cardozo ([facility]) [#/Vol]6.7 10*3/uLNormal3.5-11.3MMercy Medical Center Mer[facility] Community CampusComment on above:Performed By: #### CDP, BMPX #### [address] [address] Supervisor Grading: Mark Liriano MDHgb/Hcton 30-02-9573XpglcmymscCTFNRLAAR RESULTS. CLERICAL ERROR.Wsjwyf58.3-47.1MMercy Medical Center Merced Community CampusComment on above: Result Comment: CORRECTED ON 12/14 AT 0522: PREVIOUSLY REPORTED 41.0Performed By: #### HH #### [address] [address] Supervisor Grading: Mark Liriano MDHemoglobinDISREGARD RESULTS. CLERICAL ERROR. Aggjvy67.9-15.1MMercy Medical Center Merced Community CampusComment on above:Result Comment: CORRECTED ON 12/14 AT 0522: PREVIOUSLY REPORTED 12.6Performed By: #### HH #### [address] [address] Supervisor Grading: Mihaela Cardozo Metabolic Profon 80-99-7788Rcntf gap [Moles/Vol]14 mmol/LNormal9-17[facility] HospitalComment on above: Performed By: #### BMP, BNP, MG, CBC #### [facility] [employer] [address] [place] [address] Supervisor Grading: ANNITA Cardozoalcium [Mass/Vol]8.7 mg/dLNormal8.6-10.4[facility] HospitalComment on above:Performed By: #### BMP, BNP, MG, CBC #### [facility] [employer] [address] [place] [address] Supervisor Grading: ANNITA Cardozohloride [Moles/Vol]95 mmol/YJfu41-241GovmfMercy Health St. Joseph Warren HospitalComment on above:Performed By: #### BMP, BNP, MG, CBC #### [facility] [address] [place] [address] Supervisor Grading: Mark Liriano MDCO2 [Moles/Vol]24 mmol/JSvmsif18-07CnenvMercy Health St. Joseph Warren HospitalComment on above:Performed By: #### BMP, BNP, MG, CBC #### [facility] [address] [place] [address] Supervisor Grading: ANNITA Cardozoreatinine [Mass/Vol]0.7 mg/dLNormal0.5-0.9[facility] HospitalComment on above:Performed By: #### BMP, BNP, MG, CBC #### [facility] [address] [place] [address] Supervisor Grading: Mark Liriano MDGFR/1.73 sq M.predicted among non-blacks MDRD (S/P/Bld) [Vol rate/Area]mL/min/{1.73_m2}Normal>60[facility] HospitalComment on above:Result Comment: These results are [...] BMP, BNP, MG, CBC #### [facility] [address] [place] [address] Supervisor Grading: Mark Liriano MDGlucose [Mass/Vol]273 mg/qWEgkq37-59KuzeeLittle Company of Mary HospitalComment on above:Performed By: #### BMP, BNP, MG, CBC #### [facility] [place] [address] Supervisor Grading: ROJAS Cardozootassium [Moles/Vol]4.1 mmol/LNormal3.7-5.[address] [facility] HospitalComment on above:Performed By: #### BMP, BNP, MG, CBC #### [facility] [address] [place] [address] Supervisor Grading: Mark Liriano MDSodium [Moles/Vol]133 mmol/CJhp362-936IyvpvMercy Health St. Joseph Warren HospitalComment on above:Performed By: #### BMP, BNP, MG, CBC #### [facility] [address] [place] [address] Supervisor Grading: Mark Liriano MDUrea nitrogen [Mass/Vol]20 mg/dLNormal8-23[facility] HospitalComment on above:Performed By: #### BMP, BNP, MG, CBC #### [facility] [address] [place] [address] Supervisor Grading: Mark Liriano MDBrain Natri. Peptideon 90-79-2841Hedfufhdjdq peptide B (Bld) [Mass/Vol]4124 pg/mLHigh<300[facility] Comment on above:Result Comment: An age-independent cutoff point of 300 pg/ml has a 98% negative predictive value excluding acute heart failure.Performed By: #### BMP, BNP, MG, CBC #### [facility] [address] [place] [address] Supervisor Grading: Mark Liriano MDHgb/Hcton 25-15-0657Luquffnexp (Bld) [Volume fraction]43.8 %Inibsr98.3-47.1MMercy Medical Center Merced Community CampusComment on above: Performed By: #### HH #### [facility] [address] [place] [address] Supervisor Grading: Mark Liriano MDHemoglobin (Bld) [Mass/Vol]13.4 g/dLNormal 11.9-15.1[facility] Medical CenterComment on above:Performed By: #### HH #### [employer] [address] [place], [place] [id number] Supervisor Grading: Mark Liriano MDMagnesiumon 30-22-0579Rscpucqmu [Mass/Vol]2.2 mg/dLNormal1.6-2.6[facility] Medical CenterComment on above:Performed By: #### BMP, BNP, MG, CBC #### [employer] [address] [place], [place] [phone] Supervisor Grading: Mark Liriano [facility] OKLAHOMA CITYBC with Auto Differentialon 64-63-6887Raerepyll (Bld) [#/Vol][facility] SYSTEMBasophils/100 WBC (Bld)0 %0 - 2 %[facility] SYSTEMEosinophils (Bld) [#/Vol][facility] Eosinophils/100 WBC (Bld)0 %Low1 - 4 %[facility] SYSTEMErythrocyte distribution width (RBC) [Ratio]18.6 %High11.8 - 14.4 %[facility] Hematocrit (Bld) [Volume fraction]36.2 %Low36.3 - 47.1 %[facility] Hemoglobin (Bld) [Mass/Vol]11.6 g/dLLow11.9 - 15.1 g/dLB[facility] Immature granulocytes (Bld) [#/Vol]0.06 10*3/uLBON [facility]ETTE MEDICAL CENTERImmature granulocytes/100 WBC (Bld)1 %Boro4ACA [facility] ADMINISTRATIONInterpretation and review of laboratory resultsAbnormalBON [facility]AD[facility] F[facility]ETTE MEDICAL CENTERLymphocytes/100 WBC (Bld)9 %Low24 - 43 %[facility] CENTERLymphocytes/100 WBC (Bld)0.75 %Low [facility]ENTERH (RBC) [Entitic mass]28.2 pg25.2 - 33.5 pgBON SECOURS MERCY HEALTHMCHC (RBC) [Mass/Vol]32.0 g/dL28.4 - 34.8 g/dLBON V[facility]ER[facility]ALTH ADMINISTRATIONMCV (RBC) [Entitic vol]88.1 fL82.6 - 102.9 fLFAUQUIER HEALTH SYSTEM Monocytes/100 WBC (Bld)3 %3 - 12 %[facility] ADMINISTRATIONMonocytes/100 WBC (Bld)0.23 %[facility] SYSTEMNeutrophils/100 WBC (Bld)87 %High36 - 65 %[facility] ADMINISTRATIONNRBC Automated0.00.0 per 100 WBCFAUQUIER HEALTH SYSTEM Platelet mean volume (Bld) [Entitic vol]9.4 fL8.1 - 13.5 fLFAUQUIER HEALTH SYSTEMPlatelets (Bld) [#/Vol]216 10*3/uLBON VETERANS HEALTH ADMINISTRATIONRBC (Bld) [#/Vol]4.11 10*6/uL3.95 - 5.11 m/uLFAUQUIER HEALTH SYSTEMSegmented neutrophils/100 WBC (Bld)7.04 %[facility] ADMINISTRATIONWBC other (Bld) [#/Vol] 8.1BON [facility] HEALTH CENTERComprehensive Metabolic Panel on 53-73-5820Acqxqwc [Mass/Vol]4.1 g/dL3.5 - 5.2 g/dLB[facility] Albumin/Globulin [Mass ratio]1.3 {ratio}1.0 - 2.5B[facility] HEALTHALP [Catalytic activity/Vol]121 U/LHigh35 - 104 U/LBON [facility] HEALTHALT [Catalytic activity/Vol]29 U/L5 - 33 U/LBON [facility] ADMINISTRATIONAnion gap [Moles/Vol]8 mmol/LLow9 - 17 mmol/LBON [facility] HEALTHAST [Catalytic activity/Vol]16 U/LNINF - 32 U/LBON [facility] HEALTHBilirubin [Mass/Vol]0.3 mg/dL0.3 - 1.2 mg/dLB[facility] HEALTHCalcium [Mass/Vol]9.1 mg/dL8.6 - 10.4 mg/dLB[facility] HEALTHChloride [Moles/Vol]103 mmol/L98 - 107 mmol/L [facility] HEALTHCO2 [Moles/Vol]27 mmol/L20 - 31 mmol/LBON [facility] MEDINA HOSPITALY [facility] HOS[facility]ITALCreatinine [Mass/Vol]0.73 mg/dL0.50 - 0.90 mg/dLBON SECMULTICARE VALLEY HOSPITALBarak ITC [facility] GFR/1.73 sq M.predicted MDRD (S/P/Bld) [Vol rate/Area]- PINFBON VETERANS HEALTH ADMINISTRATIONComment on above: These results are not intended [...] that affects renal tubular secretion. Glucose [Mass/Vol]171 mg/mNBcgj28 - 99 mg/dLBON [facility] HOSPITALtwtMob Interpretation and review of laboratory resultsAbnormalBON SECOU[facility]OSPITALY HEALTH Potassium [Moles/Vol]4.9 mmol/L3.7 - 5.3 mmol/LBON SECOURS MEDINA HOSPITALY HEALTHProtein [Mass/Vol]7.2 g/dL6.4 - 8.3 g/dLBON [facility]OSPITALSodium [Moles/Vol]138 mmol/L135 - 144 mmol/LBON [facility] LibbooUrea nitrogen [Mass/Vol]33 mg/dL High8 - 23 mg/dLB[facility] LibbooUrea nitrogen/Creatinine (Bld) [Mass ratio]38Xetj3 - 20B[facility] HEALTHBON SEC[facility] MEDINA HOSPITALY [facility] HOS[facility]ITALCBC with Auto Differentialon 14-27-5016Mhuapdzt Eos #0.18[facility] HEALTHAbsolute Immature GranulocyteBON SEC[facility]RS MERCY HEALTHAbsolute Lymph #1.21[facility] HEALTHAbsolute Nelson #0.40[facility] HEALTHBasophils (Bld) [#/Vol] 0.09 10*3/uLBON SECOURS MERCY HEALTHBasophils/100 WBC (Bld)1 %0 - 2 %[facility] SEC[facility]RS B[employer] SystemsY [facility]HABIL[facility] HOSPITALEosinophils/100 WBC (Bld)2 %1 - 4 %[facility] Hematocrit (Bld) [Volume fraction]44.5 %36.3 - 47.1 %[facility] Hemoglobin (Bld) [Mass/Vol]14.5 g/dL11.9 - 15.1 g/dLB[facility] Immature granulocytes/100 WBC (Bld)0 %0FAUQUIER HEALTH SYSTEMInterpretation and review of laboratory resultsAbnormalBON VETER[facility] HEALTH ADMINISTRATIONLymphocytes/100 WBC (Bld)15 %Low24 - 43 %[facility] HOSPITALH (RBC) [Entitic mass]28.3 pg 25.2 - 33.5 pgBON UNIVERSITY [facility]OS[facility] GEN[facility] MEDICAL CENTERHC (RBC) [Mass/Vol]32.6 g/dL28.4 - 34.8 g/dLBON UN[facility]ERS[facility] HOSPITALS GENEVA MEDICAL CENTERV (RBC) [Entitic vol]86.9 fL82.6 - 102.9 fLFAUQUIER HEALTH SYSTEMMonocytes/100 WBC (Bld)5 %3 - 12 %[facility] NRBC Automated0.00.0 per 100 WBCBON VETERANS HEALTH ADMINISTRATIONPlatelet distribution width (Bld) [Ratio]17.2 %High11.8 - 14.4 %[facility]ALTH SYSTEMPlatelet mean volume (Bld) [Entitic vol]9.1 fL8.1 - 13.5 fLFAUQUIER HEALTH SYSTEMPlatelets (Bld) [#/Vol]241 10*3/uLBON VETERANS HEALTH ADMINISTRATIONRBC (Bld) [#/Vol]5.12 10*6/uL High3.95 - 5.11 m/uLFAUQUIER HEALTH SYSTEMSegmented neutrophils/100 WBC (Bld) 77 %High36 - 65 %[facility]IER HEALTH SYSTEMSegs Absolute6.18BON [facility] ADMINISTRATIONWBC (Bld) [#/Vol]8.1 10*3/uLBON [facility]ER[facility] ST[facility]EN[facility] HEALTH CENTERComprehensive Metabolic Panelon 50-97-7567Gidcqeq [Mass/Vol]4.5 g/dL3.5 - 5.2 g/dLBON [facility] ADMINISTRATIONAlbumin/Globulin [Mass ratio]1.5 {ratio}1.0 - 2.5BON [facility] VideoNot.es [facility] REHABILITATION HOSPITALALP [Catalytic activity/Vol]95 U/L35 - 104 U/LBON SECMULTICARE VALLEY HOSPITALBarak ITC [facility] REHABIL[facility]ATION HOSPITALALT [Catalytic activity/Vol]10 U/L5 - 33 U/LBON [facility]OSPITALtwtMobAnion gap [Moles/Vol]12 mmol/L9 - 17 mmol/LBON [facility] Libboo AST [Catalytic activity/Vol]13 U/LNINF - 32 U/LBON [facility] LibbooBilirubin [Mass/Vol]0.2 mg/dLLow0.3 - 1.2 mg/dLBON V[facility]ALTH ADMINISTRATIONCalcium [Mass/Vol] 10.1 mg/dL8.6 - 10.4 mg/dLBON [facility] HOSPITALtwtMobChloride [Moles/Vol]101 mmol/L 98 - 107 mmol/LBON [facility] LibbooCO2 [Moles/Vol]27 mmol/L20 - 31 mmol/LBON [facility] LibbooCreatinine [Mass/Vol]0.96 mg/dLHigh0.50 - 0.90 mg/dLBON [facility] HOSPITALtwtMobGFR/1.73 sq M.predicted MDRD (S/P/Bld) [Vol rate/Area]- AMANDA [facility] LibbooComment on above: These results are not intended [...] that affects renal tubular secretion. Glucose [Mass/Vol]137 mg/qQVimw86 - 99 mg/dLBON [facility] HOSPITALtwtMob Interpretation and review of laboratory resultsAbnormalBON [facility] Libboo Potassium [Moles/Vol]4.3 mmol/L3.7 - 5.3 mmol/LBON [facility]OS[facility]ITALtwtMobProtein [Mass/Vol]7.6 g/dL6.4 - 8.3 g/dLBON [facility]AL HOSPITALBarak ITC [facility] REHABIL[facility]ATION HOSPITALSodium [Moles/Vol]140 mmol/L135 - 144 mmol/LBON [facility] HOSPITALtwtMobUrea nitrogen [Mass/Vol]22 mg/dL8 - 23 mg/dLBON VETERANS HEALTH ADMINISTRATIONUrea nitrogen/Creatinine (Bld) [Mass ratio]23 High9 - 20BON [facility] HEALTH CENTERLipid Panelon [id number] [Mass/Vol]231 mg/dLHighNINF - 200 mg/dLBON VETERANS HEALTH ADMINISTRATIONComment on above: Cholesterol Guidelines: <200 Desirable 200-240 Borderline >240 Undesirable Cholesterol in HDL [Mass/Vol]46 mg/dL40 - PINF mg/dLB[facility] Comment on above: HDL Guidelines: <40 Undesirable 40-59 Borderline >59 Desirable Cholesterol in LDL [Mass/Vol]139 mg/dLHigh0 - 130 mg/dLBON [facility] Libboo Comment on above: LDL Guidelines: <100 Desirable 100-129 Near to/above Desirable 130-159 Borderline >159 Undesirable Direct (measured) LDL and calculated LDL are not interchangeable tests. Cholesterol.total/Cholesterol in HDL [Mass ratio]5 {ratio}HighNINF - 5B[facility] ADMINISTRATIONInterpretation and review of laboratory resultsAbnormMountain View Regional Medical CenterTriglyceride [Mass/Vol]232 mg/dLHighNINF - 150 mg/dLBON VETERANS HEALTH ADMINISTRATIONComment on above: Triglyceride Guidelines: <150 Desirable 150-199 Borderline 200-499 High >499 Very high Based on AHA Guidelines for fasting triglyceride, December 2011. [facility] SYSTEMMicroalbumin, Uron 48-38-2099Wmwuplp/Creatinine DL <= 20 mg/L (24H U) [Mass ratio]749 mg/LHighNINF - 21 mg/LBON VETERANS HEALTH ADMINISTRATION Albumin/Creatinine DL <= 20 mg/L (U) [Ratio]775HighNINFFAUQUIER HEALTH SYSTEM Creatinine [Mass/Vol]96.7 mg/dL28.0 - 217.0 mg/dLBON VETERANS HEALTH ADMINISTRATION Interpretation and review of laboratory resultsAbnormSentara Obici HospitalTSH With Reflex Ft4on 73-14-0820YPA Qn2.20 m[IU]/LBON [facility]ERA ST[facility] BENEDICT HEALTH CENTERUrine Drug Screenon 07-26-2022 Amphetamine Screen, UrPositiveAbnormalNEGATIVEBON SECOURS [...] 5 ng/ml) Interpretation and review of laboratory resultsAbnormalFAUQUIER HEALTH SYSTEM Methadone Screen, UrineNegativeNEGATIVEBON SECMULTICARE VALLEY HOSPITALY HEALTHComment on above: (Positive cutoff 300 ng/mL) Opiates, UrineNegativeNEGATIVEBON SECOURS MEDINA HOSPITALY HEALTHComment on above: (Positive cutoff 300 ng/mL) Oxycodone Screen, UrPositiveAbnormalNEGATIVEBON SECOURS MEDINA HOSPITALY HEALTHComment on above: (Positive cutoff 100 ng/mL) Phencyclidine, UrineNegativeNEGATIVEBON SECMULTICARE VALLEY HOSPITALY HEALTHComment on above: (Positive cutoff 25 ng/mL) Test InformationAssay provides medical screening only. The absence of expected drug(s) and/or metabolite(s) may indicate diluted or adulterated urine, limitations of testing or timing of collection.[facility] on above:Testing for legal purposes should be confirmed by another method. To request confirmation of test result, please call the lab within 7 days of sample submission. [facility] HEALTH SYSTEMVitamin D 25 Hydroxyon [id number]-hgwwwmtuemdqlo D3 [Mass/Vol]14.9 ng/mLLow29.9 - PINF ng/mLRussell County Medical Center on above: Reference Range: Vitamin D status Range Deficiency <20 ng/mL Mild Deficiency 20-30 ng/mL Sufficiency 30-100 ng/mL Toxicity >100 ng/mL Interpretation and review of laboratory resultsAbnormalCENTRA HEALTHNo Panel Informationon . No acute osseous abnormality identified in the lumbar spine or sacrum. 2. Advanced arthropathy in the lumbar spine and right hip, as described. [facility] CONSOLIDATEDEXAMINATION: 3 XRAY VIEWS OF THE LUMBAR [...] the groin bilaterally. Moderate rectal stool burden. [facility] Diego Islas MD - 07/21/2022 EXAMINATION: 3 [...] lumbar spine and right hip, as described. [employer] Phone: No Panel InformationOrdered By: Diego Alcantara on 05-23-1363UFQ ZAO [employer] Phone: xr LUMBAR SPINE (2-3 VIEWS)on 49-00-5899Lkhzeuzjp Study observation (narrative)[employer] Phone: xr SACRUM COCCYX (MIN 2 VIEWS)on 76-68-3252Menzqcjze Study observation (narrative)[employer] Phone: ct ABDOMEN PELVIS W IV CONTRAST [...] excluded. Clinical correlation is recommended. 4. Hepatomegaly. [employer] Phone: cT ABDOMEN PELVIS W IV CONTRAST Additional Contrast? OralOrdered By: Diomedes Corona on [id number] ZAO [employer] Phone: ct ABDOMEN PELVIS W IV CONTRAST Additional Contrast? Oralon 63-77-2762Guosikhnk Study observation (narrative)[employer] Phone: creatinineon 20-70-8857Qoxqstuorh [Mass/Vol]0.84 mg/dL 0.5 - 0.9 mg/dLBON Carbon BlackGFR/1.73 sq M.predicted MDRD (S/P/Bld) [Vol rate/Area]- PINFBON Carbon BlackComment on above: Effective Jan 01, 2022 These [...] following therapy that affects renal tubular secretion. AntavoI HIP RIGHT WO CONTRASTon . Moderate to severe right hip osteoarthrosis. Moderate right hip joint effusion. Severe right hip chondromalacia. 2. Mild left hip osteoarthrosis. 3. Tearing of the right acetabular labrum. 4. No signal changes to suggest femoral head AVN. 5. Moderate distention of urinary bladder. 6. Bowel loop containing ventral hernia. [facility] CONSOLIDATEDEXAMINATION: MRI OF THE RIGHT HIP WITHOUT [...] 4.6 cm on image 8, series 1. [facility] Orlando Brumfield MD - 01/04/2022 EXAMINATION: MRI [...] bladder. 6. Bowel loop containing ventral hernia. [facility] ZAO [employer] Phone: radiology Study observation (narrative)[facility] ZAO [employer] Phone: MRI HIP RIGHT WO CONTRASTOrdered By: Orlando Callejas on [id number] ZAO [employer] Phone: XR Spine Lumbosacral 2 or 3 Viewson [id number] Spine Lumbosacral 2 or 3 ViewsFINDINGS: Mid [...] signed by Dwight Goel on 10/06/2021 1313NormalNorthern Florida Medical SpecialistAMYLASEon 32-25-4855Zekcraj [Catalytic activity/Vol]510 U/LCritically oiwh20-871Bua [facility] HospitalComment on above:Performed By: #### LIPAriana SUSIE ####[facility] [address] [address]Dr. Praveen Medrano W MANUAL DIFFon 82-22-8339YQICLYAD LYMPH #NormalThe [facility] HospitalComment on above:Performed By: #### ABIGAIL #### [facility] Laboratory [address] [place] [address] Dr. Praveen BloomICAL LYMPH %NormalThe [facility] HospitalComment on above: Performed By: #### ABIGAIL #### [facility] [address] [place] [address] Dr. Praveen Gu #0.3 103/ulNormal0.0-0.3The [facility] HospitalComment on above:Performed By: #### ABIGAIL #### [facility] [address] [place] [address] Dr. Praveen Gu %2 %Normal0-5The [facility] HospitalComment on above:Performed By: #### ABIGAIL #### [facility] [address] [place] [address] Dr. Praveen Linares #0.00 103/ulNormal0.00-0.10The [facility] HospitalComment on above:Performed By: #### ABIGAIL #### [facility] [address] [place] [address] Dr. Praveen Linares %0.0 %Critically low0.2-2.0The [facility] HospitalComment on above:Performed By: #### ABIGAIL #### [facility] [address] [place] [address] Dr. Praveen Perry #NormalThe [facility] on above:Performed By: #### CBCSHELBY #### [facility] [address] [place] [address] Dr. Praveen ColladoBLAST %NormalThe [facility] on above:Performed By: #### CBCSHELBY #### [facility] [address] [place] [address] Dr. Praveen ColladoCORRECTED WBCNormal4.0-11.0The [facility] on above: Performed By: #### CBCSHELBY #### [facility] [address] [place] [address] Dr. Praveen Madsen #0.28 103/ulNormal0.00-0.70The [facility] on above:Performed By: #### ABIGAIL #### [facility] [address] [place] [address] Dr. Praveen Madsen%2.0 %Normal0.9-7.0The [facility] on above: Performed By: #### ABIGAIL #### [facility] [address] [place] [address] Dr. Praveen ColladoHCT46.9 %Mqjqjs28.0-48.0The [facility] on above: Performed By: #### ABIGAIL #### [facility] [address] [place] [address] Dr. Praveen ColladoHGB15.2 g/hlTftwji21.0-16.0The [facility] on above: Performed By: #### CBCSHELBY #### [facility] [address] [place] [address] Dr. Praveen Pedraza #2.90 103/ulNormal1.20-3.80The [facility] on above:Performed By: #### CBCSHELBY #### [facility] [address] [place] [address] Dr. Praveen Pedraza%21.0 %Remhyx76.5-60.0The [facility] on above:Performed By: #### CBCSHELBY #### [facility] [address] [place] [address] Dr. Praveen TangH29.0 rlKzllfz83.7-34.0The [facility] HospitalComment on above: Performed By: #### ABIGAIL #### [facility] [address] [place] [address] Dr. Praveen TangHC32.4 g/lcMzzlgu61.9-35.2The [facility] HospitalComment on above:Performed By: #### ABIGAIL #### [facility] [address] [place] [address] Dr. Praveen TangV89.5 tQKjupts99.0-99.0The [facility] HospitalComment on above: Performed By: #### ABIGAIL #### [facility] [address] [place] [address] Dr. Praveen BahenaOCYTE #NormalThe Springhill HospitalComment on above: Performed By: #### ABIGAIL #### [facility] [address] [place] [address] Dr. Praveen BahenaOCYTE %NormalThe [facility] HospitalComment on above: Performed By: #### ABIGAIL #### [facility] [address] [place] [address] Dr. Praveen Singleton#0.69 103/ulNormal0.30-0.80The [facility] HospitalComment on above:Performed By: #### ABIGAIL #### [facility] [address] [place] [address] Dr. Praveen Singleton%5.0 %Normal1.7-12.0The [facility] HospitalComment on above: Performed By: #### ABIGAIL #### [facility] [address] [place] [address] Dr. Praveen MelchorV9.9 fLNormal9.5-13.5The [facility] HospitalComment on above: Performed By: #### ABIGAIL #### [facility] [address] [place] [address] Dr. Praveen SerranoOCYTE #NormalThe [facility] HospitalComment on above:Performed By: #### ABIGAIL #### [facility] [address] [place] [address] Dr. Praveen HernandezELOCYTE %NormalThe [facility] HospitalComment on above:Performed By: #### ABIGAIL #### [facility] [address] [place] [address] Dr. Praveen SloanBCNormalThe [facility] HospitalComment on above:Performed By: #### ABIGAIL #### [facility] [address] [place] [address] Dr. Praveen BenitesT251 103/qgSdmihc894-662Ikq [facility] HospitalComment on above: Performed By: #### ABIGAIL #### [facility] [address] [place] [address] Dr. Praveen ColladoRBC5.24 106/ulNormal4.20-5.40The [facility] HospitalComment on above:Performed By: #### ABIGAIL #### [facility] [address] [place] [address] Dr. Praveen VargasW15.1 %Critically high11.0-15.0The [facility] HospitalComment on above:Performed By: #### ABIGAIL #### [facility] [address] [place] [address] Dr. Praveen Maharaj #9.66 103/ulCritically high1.40-6.50The [facility] Comment on above:Performed By: #### ABIGAIL #### [facility] [address] [place] [address] Dr. Praveen Maharaj %70.0 %Xtjzal50.0-75.0The [facility] HospitalComment on above: Performed By: #### ABIGAIL #### [facility] [address] [place] [address] Dr. Praveen StylesBC13.8 103/ulCritically high4.0-11.0The [facility] HospitalComment on above:Performed By: #### ABIGAIL #### [facility] [address] [place] [address] Dr. Praveen ColladoCT ABD/PELVIS WO CONon [id number] ABD/PELVIS WO CONEXAM: CT ABD/PELVIS WO CON [...] Electronically authenticated by: TAWANNA VICENTE Date: 2021-08-25 05:11[facility] WO CONon [id number] [facility] CONEXAMINATION: [facility] H[facility]ORY: DISORIENTATION, UNSPECIFIED COMPARISON: [...] Electronically authenticated by: Elizabeth FAJARDO Date: 2021-08-25 04:07[facility] WO CONon [id number] [facility] WO CON Begin Addendum #1 Important critical [...] after I reach the clinician.NormalThe [facility] CT STROKE HEAD WOon [id number] STROKE HEAD WOINDICATION: 60 years old; Female. [...] Electronically authenticated by: NIA GALLEGOS Date: 2021-08-25 02:12NoMcKitrick HospitalCovid-19 PCR (CVDTBH)on 16-42-9279LFZI-CoV-2 (COVID-19) RNA JANIA+probe Ql (Unsp spec)Not detectedNormalNOT DETECTEDThe [facility] Comment on above:Result Comment: When diagnostic [...] for this test is supported by the [place] of Health and Human Service's declaration that [...] used).Performed By: #### CVDTBH #### [facility] [address] [place], [place] [address] Dr. Praveen Patel 57-76-9978Fwtqro [Catalytic activity/Vol]7064.0 U/L Critically high73.0-393.0The [facility] HospitalComment on above:Performed By: #### SUSIE GOEL ####[facility] [address] [place], [place] [address]FhDr. Praveen ColladoPROF 14(COMP METB)on 27-41-2984Gectgno [Mass/Vol]3.6 g/dLNormal3.4-5.0The [facility] HospitalComment on above:Performed By: #### CMP #### [facility] [address] [address] [address] Praveen ColladoAlbumin/Globulin [Mass ratio]1.1 {ratio}NormalThe [facility] HospitalComment on above:Performed By: #### CMP #### [facility] [address] [address] [address] Praveen WelchP [Catalytic activity/Vol]102 U/XXynady25-908Rei [facility] HospitalComment on above:Performed By: #### CMP #### [facility] [address] [place] [address] Dr. Praveen WelchT [Catalytic activity/Vol]13 U/LCritically snq74-40Nsl [facility] HospitalComment on above:Performed By: #### CMP #### [facility] [address] [place] [address] Dr. Praveen Dumonton gap [Moles/Vol]18.9 mmol/LNormalThe [facility] Comment on above:Performed By: #### CMP #### [facility] [address] [place] [address] Dr. Praveen ColladoAST [Catalytic activity/Vol]16 U/XJduxrk46-97Sew [facility] HospitalComment on above:Performed By: #### CMP #### [facility] [address] [place] [address] Dr. Praveen ColladoBilirubin [Mass/Vol]1.2 mg/dLCritically high0.2-1.0The [facility] HospitalComment on above:Performed By: #### CMP #### [facility] [address] [place] [address] Dr. Praveen ColladoCalcium [Mass/Vol]9.0 mg/dLNormal8.5-10.1The [facility] Comment on above:Performed By: #### CMP #### [facility] [address] [place] [address] Dr. Praveen ColladoChloride [Moles/Vol]98 mmol/FPufrfw85-741Efb [facility] Comment on above:Performed By: #### CMP #### [facility] [address] [place] [address] Dr. Praveen ColladoCO2 [Moles/Vol]22.6 mmol/XXyaupa23.0-32.0The [facility] Comment on above:Performed By: #### CMP #### [facility] [address] [address] [address] Praveen ColladoCreatinine [Mass/Vol]1.18 mg/dLCritically high0.55-1.02The [facility] HospitalComment on above:Performed By: #### CMP #### [facility] [address] [address] [address] Praveen WestGFR-AF LLOYBLLL88 mL/min/1.67c6Ojtxtpvphn low>=60The [facility] HospitalComment on above:Performed By: #### CMP #### [facility] [address] [place] [address] Dr. Praveen WestGFR-NON AF FOLHCERT65 mL/min/1.99s8Bdkunaoylg low>=60The [facility] HospitalComment on above:Performed By: #### CMP #### [facility] [address] [address] [address] Praveen ColladoGlobulin (S) [Mass/Vol]3.3 g/dLNormalThe [facility] HospitalComment on above:Performed By: #### CMP #### [facility] [address] [place] [address] Dr. Praveen ColladoGlucose [Mass/Vol]98 mg/kDHrkdjg65-687Udi [facility] Comment on above:Performed By: #### CMP #### [facility] [address] [address] [address] Praveen ColladoPotassium [Moles/Vol]2.5 mmol/LCritically low3.5-5.1The [facility] HospitalComment on above:Performed By: #### CMP #### [facility] [address] [address] [address] Praveen ColladoProtein [Mass/Vol]6.9 g/dLNormal6.4-8.2The [facility] Comment on above:Performed By: #### CMP #### [facility] [address] [address] [address] Praveen Maganaum [Moles/Vol]136 mmol/ZGxspkb666-702Vcu [facility] Comment on above:Performed By: #### CMP #### [facility] [address] [address] [address] Praveen Yancey nitrogen [Mass/Vol]29.0 mg/dLCritically high7.0-18.0The [facility] HospitalComment on above:Performed By: #### CMP #### [facility] [address] [place] [address] Dr. Praveen Yancey nitrogen/Creatinine [Mass ratio]24.6 mg/mgNoMcKitrick HospitalComment on above:Performed By: #### CMP #### [facility] [address] [place] [address] Dr. Praveen Martinez 63-86-6424UQM Coag (PPP) [Relative time]1.15 {INR} NormalThe [facility] HospitalComment on above:Performed By: #### PTT, PT #### [facility] [address] [place] [address] Dr. Praveen Luna GUIDELINESSEE BELOWProtestant Deaconess HospitalComment on above:Result Comment: DESIRED INR: 2.0 - 3.0 CONDITIONS NOT LISTED BELOW 2.5 - 3.5 FOR PROSTHETIC HEART VALVE REPLACEMENT 2.5 - 3.5 RECURRENT THROMBOSIS Performed By: #### PTT, PT #### [facility] [address] [place] [address] Dr. Praveen Rogers Coag (PPP) [Time]12.3 sCritically high9.0-11.6The [facility] HospitalComment on above:Performed By: #### PTT, PT #### [facility] [address] [place] [address] Dr. Praveen Oropeza [id number] Coag (Bld) [Time]30.9 vQlpfli51.3-36.2The [facility] HospitalComment on above:Performed By: #### PTT, PT ####[facility] [address] [address]Dr. Praveen ColladoXR CHEST 1 Von 70-74-0402YK CHEST 1 VEXAM: XR CHEST 1 V [...] Electronically authenticated by: Elizabeth FAJARDO Date: 2021-08-25 02:[address] [place], [place] [address]GLUCOSE POCon 95-94-0573Aqkrowx [Mass/Vol]76 mg/dL70 - 99 mg/dL OSCity HospitalPo Sample TypeCAPBLUC West Chester HospitalTest performed at address of the patient encounter.OSHackettstown Medical CenterGlucose [Mass/Vol]75 mg/dL70 - 99 mg/dLUC West Chester HospitalPo Sample TypeVENOOKettering HealthTest performed at address of the patient encounter.[facility] ULTRASOUND ENDOSCOPICon [id number] [facility] Gastroenterology Patient Name: Jonatan Olivarez Procedure [...] (Doctor), Marquita Henderson RN (Nurse), Bonnie Leija Regional Airline Pilot (Regional Airline Pilot), Leighton Tabares MD (Doctor) Referring MD: Bonnie Sahu APRN-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 (Referring MD) Medicines: Monitored Anesthesia Care, Cipro [...] by the physician, the nurse and the captain waiter in the procedure room at 14:30 PM. [...] of the pancr (more content not included)...LAB, [facility] HospitalCB with Auto Differentialon 71-67-6541Kemoowda Eos #0.30Mer[facility] HealthAbsolute Immature Granulocyte0.03Mercy HealthAbsolute Lymph #2.48Mercy HealthAbsolute Nelson #0.71Mercy HealthBasophils (Bld) [#/Vol]0.14 10*3/uLMer HealthBasophils/100 WBC (Bld)1 %0 - 2 %[address] HospitalEosinophils/100 WBC (Bld)3 %1 - 4 %[address] HospitalHematocrit (Bld) [Volume fraction]33.0 %Low36.3 - 47.1 %[address] HospitalHemoglobin.gastrointestinal spec 1 Ql (Stl)10.2 g/dLLow11.9 - 15.1 g/dLWilson [address] HospitalImmature granulocytes/100 WBC (Bld) 0 %0[facility] HealthInterpretation and review of laboratory resultsAbnormalWilson Street HospitalLymphocytes/100 WBC (Bld)21 %Low24 - 43 %[facility] HospitalH (RBC) [Entitic mass]30.1 pg25.2 - 33.5 pgMiddletown HospitalHC (RBC) [Mass/Vol]30.9 g/dL28.4 - 34.8 g/dLMiddletown HospitalV (RBC) [Entitic vol]97.3 fL82.6 - 102.[address] Monocytes/100 WBC (Bld)6 %3 - 12 %[address] HospitalNRBC Automated0.00.0 per 100 WBC [facility] HealthPlatelet distribution width (Bld) [Ratio]15.5 %High11.8 - 14.4 % Merc HealthPlatelet mean volume (Bld) [Entitic vol]10.3 fL8.1 - 13.5 fLMercy Health Lorain Hospital HealthPlatelets (Bld) [#/Vol]313 10*3/uLMercy HealthRBC (Bld) [#/Vol]3.39 10*6/uLLow3.95 - 5.11 m/uLMer HealthSegmented neutrophils/100 WBC (Bld)69 % High36 - 65 %Mercy HealthSegs Absolute7.95[facility] (d) [#/Vol]11.6 10*3/uLHighRogers Memorial Hospital - MilwaukeeCT ABDOMEN PELVIS W IV CONTRAST Additional Contrast? [...] femoral bypass which appears patent. However, the [place] superior femoral artery just distal to the graft appears thrombosed on the left side. RECOMMENDATIONS: 1. Advise MRI of the abdomen/MRCP with gadolinium contrast enhancement. 2. Advise bilateral mammography in this patient. The patient has no mammograms on file. The findings were sent to the Radiology Results Communication Center at 6:23 pm on 06/20/2021to be communicated to a licensed caregiver. [facility] RIS CONSOLIDATEDEXAMINATION: CT OF [...] there appears be a thrombosis of the [place] superior femoral artery on the left. Numerous [...] there appears be a thrombosis of the [place] superior femoral artery on the left. Numerous [...] femoral bypass which appears patent. However, the [place] superior femoral artery just distal to the graft appears thrombosed on the left side. RECOMMENDATIONS: 1. Advise MRI of the abdomen/MRCP with gadolinium contrast enhancement. 2. Advise bilateral mammography in this patient. The patient has no mammograms on file. The findings were sent to the Radiology Results Communication Center at 6:23 pm on 06/20/2021to be communicated to a licensed caregiver. [employer] Phone: radiology Study observation (narrative)[employer] Phone: cT ABDOMEN PELVIS W IV CONTRAST Additional Contrast? OralOrdered By: Jose Ruslan on [id number] Phone: Comprehensive Metabolic Panel with Bilirubinon 64-19-8469Gfbsihg [Mass/Vol]3.3 g/dLLow3.5 - 5.2 g/dLMercy Health Lor[facility] Hospital RepRegen Albumin/Globulin [Mass ratio]1.2 {ratio}Lezhin EntertainmentALP (Bld) [Catalytic activity/Vol]129 U/LHigh35 - 104 U/LMercy HealthALT [Catalytic activity/Vol]8 U/L5 - 33 U/LMercy HealthAnion gap [Moles/Vol]12 mmol/L9 - 17 mmol/LMercy Health AST [Catalytic activity/Vol]11 U/L<32Mercy HealthBilirubin [Mass/Vol]0.23 mg/dL Low0.3 - 1.2 mg/dLMerIzenda, Inc. HealthBilirubin, IndirectCan not be calculated0.00 - 1.00 mg/dLMercy HealthBilirubin.indirect [Mass/Vol]mg/dL<0.31 mg/dLMercy Health Lor[facility] Hospital Health Calcium [Mass/Vol]8.7 mg/dL8.6 - 10.4 mg/dLMer HealthChloride [Moles/Vol]102 mmol/L98 - 107 mmol/LMercy HealthCO2 [Moles/Vol]25 mmol/L20 - 31 mmol/LMercy HealthCreatinine [Mass/Vol]0.95 mg/dLHigh0.50 - 0.90 mg/dLMer HealthFree PSA/Total PSA [Mass fraction]6.0 g/dLLow6.4 - 8.3 g/dLMercy HealthGFR >60>60 mL/minMercy HealthGFR Non- Wcjabmez03 mL/minLow>60[address] HospitalGlucose [Mass/Vol]119 mg/bUHarj91 - 99 mg/dLWilson [address] HospitalInterpretation and review of laboratory resultsAbnormalWilson Street HospitalPotassium [Moles/Vol]3.0 mmol/L Low3.7 - 5.3 mmol/LMercy HealthSodium [Moles/Vol]139 mmol/L135 - 144 mmol/LMercy HealthUrea nitrogen (BldV) [Mass/Vol]22 mg/dL8 - 23 mg/dLRogers Memorial Hospital - MilwaukeeLaboratory - Chemistry and Chemistry - challengeon 88-00-4638WKK/1.73 sq M.predicted MDRD (S/P/Bld) [Vol rate/Area]UC [facility] Chester Hospitalment on above:Average GFR for 60-69 years old: 85 mL/min/1.73sq m Chronic Kidney Disease: <60 mL/min/1.73sq m Kidney failure: <15 mL/min/1.73sq m eGFR calculated using average adult body mass. Additional eGFR calculator available at: http://www.Perpetuelle.com/multiple_crcl_2012.htm Stage 1: Some kidney damage normal GFR Stage 2: Mild kidney damage GFR 60-89 Stage 3: Moderate kidney damage GFR 30-59 Stage 4: Severe kidney damage GFR 15-29 Stage 5: Severe kidney damage GFR <15 ESRD - chronic treatment by dialysis or transplant XR HIP RIGHT (2-3 VIEWS)on . Severe end-stage right hip osteoarthrosis. Diffuse osteopenia. 2. No acute fracture or dislocation. [facility] CONSOLIDATEDEXAMINATION: TWO XRAY VIEWS OF THE RIGHT [...] tissue calcifications overlying the proximal right thigh. [facility] Orlando Brumfield MD - 04/10/2021 EXAMINATION: TWO [...] osteopenia. 2. No acute fracture or dislocation. [employer] Phone: radiology Study observation (narrative)[employer] Phone: XR HIP RIGHT (2-3 VIEWS)Ordered By: Orlando Callejas on [id number] Phone: Basic Metabolic Panel w/ Reflex to MGon 03-19-2021 Anion gap [Moles/Vol]13 mmol/L9 - 17 mmol/LMercy HealthCalcium [Mass/Vol]9.6 mg/dL8.6 - 10.4 mg/dLMercy Health Lorain Hospital HealthChloride [Moles/Vol]95 mmol/LLow98 - 107 mmol/L [facility] RepRegenCO2 [Moles/Vol]32 mmol/LHigh20 - 31 mmol/LMercy HealthCreatinine [Mass/Vol]1.2 mg/dLHigh0.50 - 0.90 mg/dLMercy Health Lorain Hospital HealthGFR Skrjdvwc88 mL/minLow>60Mer HealthGFR Non- Cqyljdpe69 mL/minLow>60[facility] Health Glucose [Mass/Vol]98 mg/dL70 - 99 mg/dLMercy Health [facility] Hospital HealthInterpretation and review of laboratory resultsAbnormalMercy Health Lorain Hospital HealthPotassium [Moles/Vol]4.3 mmol/L3.7 - 5.3 mmol/LMercy HealthSodium [Moles/Vol]140 mmol/L135 - 144 mmol/LMercy HealthUrea nitrogen (BldV) [Mass/Vol]17 mg/dL8 - 23 mg/dLMercy Health Lorain Hospital HealthUrea nitrogen/Creatinine (Bld) [Mass ratio]14[facility] MilwaukeeCBC Auto Differentialon [id number] Eos #0.31MerWashington Rural Health CollaborativeAbsolute Immature Granulocyte<0.03Mer HealthAbsolute Lymph #0.94LowMer HealthAbsolute Nelson # 0.39Mer HealthBasophils (Bld) [#/Vol]0.04 10*3/uLMer HealthBasophils/100 WBC (Bld)1 %0 - 2 %[address] HospitalDifferential TypeNOT REPORTEDWilson Street Hospital Eosinophils/100 WBC (Bld)6 %High1 - 4 %[address] HospitalHematocrit (Bld) [Volume fraction]42.9 %36.3 - 47.1 %[address] HospitalHemoglobin.gastrointestinal spec 1 Ql (Stl)13.5 g/dL11.9 - 15.1 g/dLWilson [address] HospitalImmature granulocytes/100 WBC (Bld)0 % 0[address] HospitalInterpretation and review of laboratory resultsAbnormalWilson Street Hospital Lymphocytes/100 WBC (Bld)19 %Low24 - 43 %[facility] HospitalH (RBC) [Entitic mass] 28.4 pg25.2 - 33.5 pgMiddletown HospitalHC (RBC) [Mass/Vol]31.5 g/dL28.4 - 34.8 g/dL [facility] HospitalV (RBC) [Entitic vol]90.3 fL82.6 - 102.[address] Monocytes/100 WBC (Bld)8 %3 - 12 %[address] HospitalNRBC Automated0.00.0 per 100 WBC [facility] HealthPlatelet distribution width (Bld) [Ratio]15.2 %High11.8 - 14.4 % [facility] HealthPlatelet EstimateNOT REPORTEDMercy Health Lorain Hospital HealthPlatelet mean volume (Bld) [Entitic vol]9.0 fL8.1 - 13.5 fLMercy Health Lorain Hospital HealthPlatelets (Bld) [#/Vol]254 10*3/uL [address] HospitalRBC (Bld) [#/Vol]4.75 10*6/uL3.95 - 5.11 m/uLWilson Street HospitalRBC (Bld) [#/Vol]NOT REPORTEDWilson [address] HospitalSegmented neutrophils/100 WBC (Bld)66 %High36 - 65 %[address] HospitalSegs Absolute3.20[address] HospitalWBC (Bld) [#/Vol]4.9 10*3/uLWilson [address] HospitalWBC (Bld) [#/Vol]NOT REPORTEDRogers Memorial Hospital - MilwaukeeLaboratory - Chemistry and Chemistry - challengeon [id number]/1.73 sq M.predicted MDRD (S/P/Bld) [Vol rate/Area][address] HospitalComment on above:Average GFR for 60-69 years old: 85 mL/min/1.73sq m Chronic Kidney Disease: <60 mL/min/1.73sq m Kidney failure: <15 mL/min/1.73sq m eGFR calculated using average adult body mass. Additional eGFR calculator available at: http://www.Perpetuelle.com/multiple_crcl_2011.htm Stage 1: Some kidney damage normal GFR Stage 2: Mild kidney damage GFR 60-89 Stage 3: Moderate kidney damage GFR 30-59 Stage 4: Severe kidney damage GFR 15-29 Stage 5: Severe kidney damage GFR <15 ESRD - chronic treatment by dialysis or transplant Basic Metabolic Panel w/ Reflex to MGon [id number] gap [Moles/Vol]12 mmol/L 9 - 17 mmol/LMercy HealthCalcium [Mass/Vol]9.4 mg/dL8.6 - 10.4 mg/dLWilson [facility] Chloride [Moles/Vol]102 mmol/L98 - 107 mmol/LMercy HealthCO2 [Moles/Vol]25 mmol/L20 - 31 mmol/LMercy HealthCreatinine [Mass/Vol]1 mg/dLHigh0.50 - 0.90 mg/dLWilson [address] HospitalGFR >60>60 mL/minMercy Health Lorain Hospital HealthGFR Non- Tyfggmpv15 mL/minLow>60[address] HospitalGlucose [Mass/Vol]121 mg/eJGhhe05 - 99 mg/dL [address] HospitalInterpretation and review of laboratory resultsAbnormalWilson Street Hospital Potassium [Moles/Vol]3.7 mmol/L3.7 - 5.3 mmol/LMercy HealthSodium [Moles/Vol]139 mmol/L135 - 144 mmol/LMercy HealthUrea nitrogen (BldV) [Mass/Vol]13 mg/dL8 - 23 mg/dLWilson [address] HospitalUrea nitrogen/Creatinine (Bld) [Mass ratio]13[facility] - MilwaukeeCB Auto Differentialon [id number] Eos #0.36MerWashington Rural Health CollaborativeAbsolute Immature Granulocyte<0.03[address] HospitalAbsolute Lymph #1.05LowMer HealthAbsolute Nelson #0.48Mer HealthBasophils (Bld) [#/Vol]0.05 10*3/uL[address] Hospital Basophils/100 WBC (Bld)1 %0 - 2 %[address] HospitalDifferential TypeNOT REPORTEDMerWashington Rural Health CollaborativeEosinophils/100 WBC (Bld)7 %High1 - 4 %[address] HospitalHematocrit (Bld) [Volume fraction]40.5 %36.3 - 47.1 %[address] HospitalHemoglobin.gastrointestinal spec 1 Ql (Stl)13.0 g/dL11.9 - 15.1 g/dLWilson [address] HospitalImmature granulocytes/100 WBC (Bld)0 %0[address] HospitalInterpretation and review of laboratory resultsAbnormal [address] HospitalLymphocytes/100 WBC (Bld)19 %Low24 - 43 %[facility] HospitalH (RBC) [Entitic mass]28.8 pg25.2 - 33.5 pgMiddletown HospitalHC (RBC) [Mass/Vol]32.1 g/dL 28.4 - 34.8 g/dLMiddletown HospitalV (RBC) [Entitic vol]89.6 fL82.6 - 102.[address] HospitalMonocytes/100 WBC (Bld)9 %3 - 12 %[address] HospitalNRBC Automated0.00.0 per 100 WBCMercy Health Lorain Hospital HealthPlatelet distribution width (Bld) [Ratio]15.8 %High11.8 - 14.4 % [facility] HealthPlatelet EstimateNOT REPORTEDMercy Health [facility] Hospital HealthPlatelet mean volume (Bld) [Entitic vol]9.0 fL8.1 - 13.5 fLMercy Health Lorain Hospital HealthPlatelets (Bld) [#/Vol]219 10*3/uL [address] HospitalRBC (Bld) [#/Vol]4.52 10*6/uL3.95 - 5.11 m/uLWilson Street HospitalRBC (Bld) [#/Vol]NOT REPORTEDWilson [address] HospitalSegmented neutrophils/100 WBC (Bld)64 %36 - 65 % [address] HospitalSe Absolute3.51MerWashington Rural Health CollaborativeWBC (Bld) [#/Vol]5.5 10*3/uLWilson [address] HospitalWBC (Bld) [#/Vol]NOT REPORTEDRogers Memorial Hospital - MilwaukeeLaboratory - Chemistry and Chemistry - challengeon [id number]/1.73 sq M.predicted MDRD (S/P/Bld) [Vol rate/Area][facility] on above:Average GFR for 60-69 years old: 85 mL/min/1.73sq m Chronic Kidney Disease: <60 mL/min/1.73sq m Kidney failure: <15 mL/min/1.73sq m eGFR calculated using average adult body mass. Additional eGFR calculator available at: http://www.Perpetuelle.com/multiple_crcl_2012.htm Stage 1: Some kidney damage normal GFR Stage 2: Mild kidney damage GFR 60-89 Stage 3: Moderate kidney damage GFR 30-59 Stage 4: Severe kidney damage GFR 15-29 Stage 5: Severe kidney damage GFR <15 ESRD - chronic treatment by dialysis or transplant XR CHEST (2 VW)on [id number] significant change in vascular congestion with findings of interstitial edema and trace pleural effusions. [facility] CONSOLIDATEDEXAMINATION: TWO XRAY VIEWS OF THE CHEST 03/18/2021 8:19 am COMPARISON: Chest CT and radiograph 03/17/2021 HISTORY: ORDERING SYSTEM PROVIDED HISTORY: hypoxia TECHNOLOGIST PROVIDED HISTORY: hypoxia FINDINGS: Bilateral perihilar opacities, interstitial opacities and mild septal thickening. Blunting of the costophrenic angles. No pneumothorax identified. No significant effusion. [facility] Diego Gamble MD - [...] of interstitial edema and trace pleural effusions. [employer] Phone: radiology Study observation (narrative)[employer] Phone: XR CHEST (2 VW)Ordered By: Diego Alcantara on 03-18-2021 [employer] Phone: Basic Metabolic Panelon [id number] gap [Moles/Vol]12 mmol/L9 - 17 mmol/LMercy HealthCalcium [Mass/Vol]9.2 mg/dL8.6 - 10.4 mg/dLMercy Health Lorain Hospital HealthChloride [Moles/Vol]106 mmol/L98 - 107 mmol/LMercy Health CO2 [Moles/Vol]22 mmol/L20 - 31 mmol/LMercy HealthCreatinine [Mass/Vol]1.07 mg/dLHigh0.50 - 0.90 mg/dLPike Community Hospitalcy HealthGFR >60>60 mL/minMercy HealthGFR Non- Iythlhta25 mL/minLow>60Mer HealthGlucose [Mass/Vol]92 mg/dL70 - 99 mg/dLMercy Health Lorain Hospital HealthPotassium [Moles/Vol]4.0 mmol/L3.7 - 5.3 mmol/L [facility] RepRegenSodium [Moles/Vol]140 mmol/L135 - 144 mmol/LMercy HealthUrea nitrogen (BldV) [Mass/Vol]14 mg/dL8 - 23 mg/dLMercy Health Lorain Hospital HealthUrea nitrogen/Creatinine (Bld) [Mass ratio]13MerWashington Rural Health CollaborativeBrain Natriuretic Peptideon [id number] InterpretationNOT REPORTEDMerWashington Rural Health CollaborativeNatriuretic peptide B (Bld) [Mass/Vol]6864 pg/mLHigh<300MerWashington Rural Health CollaborativeComment on above: An age-independent cutoff point of 300 pg/ml has a 98% negative predictive value excluding acute heart failure. C-Reactive Proteinon [id number] [Mass/Vol]159.4 mg/LHigh0.0 - 5.0 mg/LMercy HealthInterpretation and review of laboratory resultsAbnormalMerSouthern Ohio Medical CenterCBC Auto Differentialon [id number] Eos #0.38Mercy HealthAbsolute Immature Granulocyte<0.03Mercy HealthAbsolute Lymph #1.29Mercy HealthAbsolute Nelson #0.48Mercy HealthBasophils (Bld) [#/Vol]0.05 10*3/uLMer Health Basophils/100 WBC (Bld)1 %0 - 2 %[address] HospitalDifferential TypeNOT REPORTEDMer HealthEosinophils/100 WBC (Bld)6 %High1 - 4 %[address] HospitalHematocrit (Bld) [Volume fraction]33.9 %Low36.3 - 47.1 %[address] HospitalHemoglobin.gastrointestinal spec 1 Ql (Stl)11.0 g/dLLow11.9 - 15.1 g/dLWilson [address] HospitalImmature granulocytes/100 WBC (Bld)0 %0[facility] HealthInterpretation and review of laboratory resultsAbnormal [address] HospitalLymphocytes/100 WBC (Bld)19 %Low24 - 43 %[facility] HospitalH (RBC) [Entitic mass]29.0 pg25.2 - 33.5 pgMiddletown HospitalHC (RBC) [Mass/Vol]32.4 g/dL 28.4 - 34.8 g/dLMiddletown HospitalV (RBC) [Entitic vol]89.4 fL82.6 - 102.9 fLMercy Health Lorain Hospital HealthMonocytes/100 WBC (Bld)7 %3 - 12 %[address] HospitalNRBC Automated0.00.0 per 100 WBCMercy Health Lorain Hospital HealthPlatelet distribution width (Bld) [Ratio]16.2 %High11.8 - 14.4 % [facility] HealthPlatelet EstimateNOT REPORTEDMercy Health Lorain Hospital HealthPlatelet mean volume (Bld) [Entitic vol]10.1 fL8.1 - 13.5 fLMer HealthPlatelets (Bld) [#/Vol]203 10*3/uL Merc HealthRBC (Bld) [#/Vol]3.79 10*6/uLLow3.95 - 5.11 m/uLMer HealthRBC (Bld) [#/Vol]NOT REPORTEDMer HealthSegmented neutrophils/100 WBC (Bld)67 %High 36 - 65 %[address] HospitalSegs Absolute4.51Mer HealthWBC (Bld) [#/Vol]6.7 10*3/uL Merc HealthWBC (Bld) [#/Vol]NOT REPORTEDMer HealthMercy HealthAbsolute Eos # 0.31Mer HealthAbsolute Immature Granulocyte<0.03Mer HealthAbsolute Lymph # 1.26Mer HealthAbsolute Nelson #0.46Mer HealthBasophils (Bld) [#/Vol]0.05 10*3/uLMer HealthBasophils/100 WBC (Bld)1 %0 - 2 %[address] HospitalDifferential TypeNOT REPORTEDWilson Street HospitalEosinophils/100 WBC (Bld)5 %High1 - 4 %[facility] Hematocrit (Bld) [Volume fraction]34.3 %Low36.3 - 47.1 %[facility] Hemoglobin.gastrointestinal spec 1 Ql (Stl)10.8 g/dLLow11.9 - 15.1 g/dLWilson [address] HospitalImmature granulocytes/100 WBC (Bld)0 %0[address] HospitalInterpretation and review of laboratory resultsAbnormalWilson Street HospitalLymphocytes/100 WBC (Bld)20 %Low 24 - 43 %[address] HospitalMCH (RBC) [Entitic mass]28.6 pg25.2 - 33.[address] MCHC (RBC) [Mass/Vol]31.5 g/dL28.4 - 34.8 g/dLWilson [address] HospitalMCV (RBC) [Entitic vol]91.0 fL82.6 - 102.9 fLMercy Health Lorain Hospital HealthMonocytes/100 WBC (Bld)7 %3 - 12 %[address] HospitalNRBC Automated0.00.0 per 100 WBCMercy Health Lorain Hospital HealthPlatelet distribution width (Bld) [Ratio]16.0 %High11.8 - 14.4 %[facility] HealthPlatelet EstimateNOT REPORTED [facility] HealthPlatelet mean volume (Bld) [Entitic vol]9.1 fL8.1 - 13.5 fLMercy Health Lorain Hospital HealthPlatelets (Bld) [#/Vol]195 10*3/uLMer HealthRBC (Bld) [#/Vol]3.77 10*6/uLLow3.95 - 5.11 m/uLMer HealthRBC (Bld) [#/Vol]NOT REPORTED[facility] Segmented neutrophils/100 WBC (Bld)67 %High36 - 65 %[address] HospitalSe Absolute 4.26[address] HospitalWBC (Bld) [#/Vol]6.4 10*3/uLWilson [address] HospitalWBC (Bld) [#/Vol]NOT REPORTEDRogers Memorial Hospital - MilwaukeeCOVID-19, Rapidon 30-58-3075LQTT-CoV-2 (COVID- 19) RNA JANIA+probe Ql (Unsp spec)Not detectedNot DetectedWilson Street HospitalComment on above: Rapid NAAT: The specimen is [...] management decisions. Fact sheet for Healthcare Providers: https://www.fda.gov/media/212451/download Fact sheet for Patients: https://www.fda.gov/media/148217/download Methodology: Isothermal Nucleic Acid Amplification Specimen Description.NASOPHARYNGEAL SWABRogers Memorial Hospital - MilwaukeeCT CHEST PULMONARY EMBOLISM W CONTRASTon 06-90-0947Pr evidence of pulmonary embolism. Pulmonary artery hypertension, [...] Additional unchanged findings, as above. RECOMMENDATIONS: Unavailable [facility] RIS CONSOLIDATEDEXAMINATION: CTA OF [...] No acute bone or soft tissue abnormality. [facility] Diego Murillo MD - [...] Additional unchanged findings, as above. RECOMMENDATIONS: Unavailable [employer] Phone: radiology Study observation (narrative)[employer] Phone: cT CHEST PULMONARY EMBOLISM W CONTRASTOrdered By: Diego Mcclure on 69-07-8115FlajfCrowdZone Phone: [phone]-Ngfhd, Quantitativeon 40-57-3793V-Dimer, Quant2.31 [facility] Medical CenterLezhin EntertainmentComment on above: When combined with a low [...] distal DVT. Interpretation and review of laboratory resultsAbnocritical access hospitalGreencloud Technologies EKG 12 Leadon 41-69-1404Koqwin [email or web address].com Phone: p Gbod63lnvfsxkUoiddScriptPad Phone: p-R [id number] [employer] Phone: Q-T Scbefavi489 [employer] Phone: QRS Romlrgag49 [employer] Phone: QTc Calculation (Bazett)403 [employer] Phone: R Lfzg06nqxxfmuTqnijScriptPad Phone: T Ynbb12ygbhcbgMzppaScriptPad Phone: Ventricular Emod21YPCUfmthLocalyte.com Phone: Normal sinus rhythm Possible Left atrial enlargement Incomplete right bundle branch block Borderline ECG When compared with ECG of 21-FEB-2021 19:10, No significant change was found Confirmed by Josef Brooks MD ([id number]) on 03/17/2021 9:28:37 [facility]CR[facility] Josef Brooks MD - 03/17/2021 Normal sinus rhythm Possible Left atrial enlargement Incomplete right bundle branch block Borderline ECG When compared with ECG of 21-FEB-2021 19:10, No significant change was found Confirmed by Josef Brooks MD ([id number]) on 03/17/2021 9:28:37 PMMercy Health Lorain Hospital Health Work Phone: [facility] RepRegen Work Phone: laboratory - Chemistry and Chemistry - challengeon [id number]/1.73 sq M.predicted MDRD (S/P/Bld) [Vol rate/Area][facility] RepRegen Comment on above:Average GFR for 60-69 years old: 85 mL/min/1.73sq m Chronic Kidney Disease: <60 mL/min/1.73sq m Kidney failure: <15 mL/min/1.73sq m eGFR calculated using average adult body mass. Additional eGFR calculator available at: http://www.Perpetuelle.com/multiple_crcl_2012.htm Stage 1: Some kidney damage normal GFR Stage 2: Mild kidney damage GFR 60-89 Stage 3: Moderate kidney damage GFR 30-59 Stage 4: Severe kidney damage GFR 15-29 Stage 5: Severe kidney damage GFR <15 ESRD - chronic treatment by dialysis or transplant Lactate, Sepsison 10-54-2651Ixpcia Acid, Sepsis0.6 mmol/L0.5 - 1.9 mmol/LMercy HealthLactic Acid, Sepsis, Whole BloodNOT REPORTED0.5 - 1.9 mmol/LMercy Health [facility] HealthMicroscopic Urinalysison 03-17-2021-[facility] HealthAmorphous, UANOT REPORTEDNoneMercy HealthBacteria, UA3+AbnormalNoneMercy HealthCasts UANOT REPORTED/LPFMercy HealthCrystals, UANOT REPORTEDNone /HPFMercy HealthEpithelial Cells UA2 TO 5Mercy HealthInterpretation and review of laboratory results AbnormalMercy HealthMucus, UANOT REPORTEDNoneMercy HealthOther Observations UA NOT REPORTEDNOT REQ.Mercy HealthRBC, UA0 TO 2Mercy HealthRenal Epithelial, UANOT REPORTED0 /HPFMercy HealthTrichomonas, UANOT REPORTEDNoneMercy HealthWBC, UA0 TO 2Mercy HealthYeast, UANOT REPORTEDNoneMercy HealthMercy HealthNo Panel Informationon [id number] and review of laboratory resultsAbnormal Mercy HealthMercy HealthProtime-INRon 28-22-4731SIV Coag (Bld) [Relative time] 1.0 {INR}Mercy HealthComment on above: Non-therapeutic Range: INR = 0.9-1.2 Therapeutic Range: Moderate Anticoagulant Intensity: INR = 2.0-3.0 High Anticoagulant Intensity: INR = 2.5-3.5 PT Coag (PPP) [Time]13 sMercy HealthMercy HealthSedimentation Rateon 03-17-2021 Interpretation and review of laboratory resultsAbnormalMercy HealthSed Rate27 mm High0 - 20 mmMercy HealthMercy HealthTroponinon 59-12-0075Qskxiklc InterpNOT REPORTEDMercy HealthTroponin TNOT REPORTED<0.03 ng/mLMercy HealthTroponin, High Sensitivity9 ng/L0 - 14 ng/LMercy HealthComment on above: High Sensitivity Troponin values cannot be compared with other Troponin methodologies. Patients with high levels of Biotin oral intake (i.e >5mg/day) may have falsely decreased Troponin levels. Samples collected within 8 hours of biotin intake may require additional information for diagnosis. Mercy HealthUrinalysis Reflex to Cultureon [id number] UrineNegative NEGATIVEMercy HealthColor, UAYellowYellowMercy HealthGlucose, UrNegativeNEGATIVE Mercy HealthInterpretation and review of laboratory resultsAbnormalMercy Health Ketones Ql (U)NegativeNEGATIVEMercy HealthLeukocyte esterase Test strip Ql (U) NegativeNEGATIVEMercy HealthNitrite, UrinePositiveAbnormalNEGATIVEMercy Health pH, UA6.5Mercy HealthProtein, UANegativeNEGATIVEMercy HealthSpecific [place], UA 1.020Mercy HealthTurbidity UAClearClearMercy HealthUrinalysis CommentsNOT REPORTEDMercy HealthUrine HgbNegativeNEGATIVEMercy HealthUrobilinogen, Urine NormalNormalMercy HealthMercy HealthVL DUP LOWER EXTREMITY VENOUS BILATERALon [id number] Mercer MD - 03/17/2021 [facility] Vascular Lower Extremities DVT Study Procedure Patient Name SHER Date of Study 03/17/2021 JONATAN Phillips Date of 1960 Gender Female Age 60 year(s) Race Room Number 01A Corporate ID # [id number] Patient MR # [id number] Blood Donor Recruiter Supervisor Corrine Peterson Interpreting Physician Jose Mercer MD Referring Nurse Fredy Billingsley, Referring Physician 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 + (more content not included)...[employer] Phone: radiology Study observation (narrative)[employer] Phone: VL DUP LOWER EXTREMITY VENOUS BILATERALOrdered By: Jose Mercer on 44-81-2721MymfwCrowdZone Phone: xr CHEST PORTABLEon 36-12-7353Gmnbuul reticular airspace opacities. This could represent interstitial [...] versus atypical/viral infection. Small bilateral pleural effusions. [employer] Phone: radiology Study observation (narrative)[employer] Phone: XR CHEST PORTABLEOrdered By: Carlo Song on 08-91-2917Vlkxe Health Work Phone: basic to comprehensive upgradeon 94-95-4446Puxhdph [Mass/Vol]3.4 g/dLLow3.5 - 5.2 g/dLMer HealthAlbumin/Globulin [Mass ratio]1.1 {ratio}[facility]ermont County HospitalSensegALP (Bld) [Catalytic activity/Vol]94 U/L35 - 104 U/LMercy HealthALT [Catalytic activity/Vol]9 U/L5 - 33 U/LMercy HealthAST [Catalytic activity/Vol]11 U/L<32Mer HealthBilirubin [Mass/Vol]0.17 mg/dLLow0.3 - 1.2 mg/dLWilson [address] HospitalFree PSA/Total PSA [Mass fraction]6.4 g/dL6.4 - 8.3 g/dLMercy Health Lorain Hospital HealthInterpretation and review of laboratory resultsAbnormalSouthwest Health Center Auto Differentialon [id number] Eos #0.39Mer HealthAbsolute Immature Granulocyte<0.03Mer HealthAbsolute Lymph #1.46Mer HealthAbsolute Nelson #0.42Mer HealthBasophils (Bld) [#/Vol]0.07 10*3/uLMer Health Basophils/100 WBC (Bld)1 %0 - 2 %[address] HospitalDifferential TypeNOT REPORTEDMercy Health Lorain Hospital HealthEosinophils/100 WBC (Bld)6 %High1 - 4 %[address] HospitalHematocrit (Bld) [Volume fraction]43.4 %36.3 - 47.1 %[address] HospitalHemoglobin.gastrointestinal spec 1 Ql (Stl)13.8 g/dL11.9 - 15.1 g/dLWilson [address] HospitalImmature granulocytes/100 WBC (Bld)0 %0[address] HospitalInterpretation and review of laboratory resultsAbnormal [address] HospitalLymphocytes/100 WBC (Bld)24 %24 - 43 %[facility] HospitalH (RBC) [Entitic mass]29.3 pg25.2 - 33.5 pgMiddletown HospitalHC (RBC) [Mass/Vol]31.8 g/dL28.4 - 34.8 g/dLMiddletown HospitalV (RBC) [Entitic vol]92.1 fL82.6 - 102.[address] Monocytes/100 WBC (Bld)7 %3 - 12 %[address] HospitalNRBC Automated0.00.0 per 100 WBC [facility] HealthPlatelet distribution width (Bld) [Ratio]14.7 %High11.8 - 14.4 % [facility] HealthPlatelet EstimateNOT REPORTEDMercy Health Lorain Hospital HealthPlatelet mean volume (Bld) [Entitic vol]8.9 fL8.1 - 13.5 fLMercy Health Lorain Hospital HealthPlatelets (Bld) [#/Vol]232 10*3/uL [facility] HealthRBC (Bld) [#/Vol]4.71 10*6/uL3.95 - 5.11 m/uLMer HealthRBC (Bld) [#/Vol]NOT REPORTEDWilson [address] HospitalSegmented neutrophils/100 WBC (Bld)62 %36 - 65 % [address] HospitalSegs Absolute3.83Mer HealthWBC (Bld) [#/Vol]6.2 10*3/uLMer HealthWBC (Bld) [#/Vol]NOT REPORTEDHolzer Hospitalcy HealthCT CERVICAL SPINE WO CONTRASTon 91-77-6605Jy acute abnormality of the cervical spine. [facility] CONSOLIDATEDEXAMINATION: CT OF THE CERVICAL SPINE WITHOUT [...] There is no prevertebral soft tissue swelling. [facility] Nia Rouse MD - 02/09/2021 EXAMINATION: CT [...] No acute abnormality of the cervical spine. [employer] Phone: radiology Study observation (narrative)[employer] Phone: cT CERVICAL SPINE WO CONTRASTOrdered By: Nia Trejo on 44-20-3784BqnsbCrowdZone Phone: ct Head WO Contraston 84-37-7583Kz evidence of acute intracranial process. Mild early chronic small vessel ischemic changes noted. Recommend clinical correlation for cardiovascular risk factors. [facility] CONSOLIDATEDEXAMINATION: CT OF THE HEAD WITHOUT CONTRAST [...] tissues. No acute fracture. No scalp hematoma. [facility] Josse Gutiérrez MD - [...] Recommend clinical correlation for cardiovascular risk factors. [employer] Phone: radiology Study observation (narrative)[employer] Phone: cT Head WO ContrastOrdered By: Josse Ravi on 32-12-6573UwpgvCrowdZone Phone: Comprehensive Metabolic Panel w/ Reflex to MGon 02-58-1590Ulehbpo [Mass/Vol]3.7 g/dL3.5 - 5.2 g/dLMer HealthAlbumin/Globulin [Mass ratio]1.3 {ratio}[facility] County HospitalSensegALP (Bld) [Catalytic activity/Vol]79 U/L35 - 104 U/LMercy [...] 8.3 g/dLMercy HealthGFR >60>60 mL/minMercy HealthGFR Non- Ypelrbbr14 mL/minLow>60Mercy HealthGlucose [Mass/Vol]75 mg/dL70 - 99 mg/dLMercy HealthInterpretation and review of laboratory resultsAbnormalMer HealthPotassium [Moles/Vol]4.4 mmol/L 3.7 - 5.3 mmol/LMercy HealthSodium [Moles/Vol]137 mmol/L135 - 144 mmol/LMercy HealthUrea nitrogen (BldV) [Mass/Vol]22 mg/dL8 - 23 mg/dLMercy Health Lorain Hospital HealthUrea nitrogen/Creatinine (Bld) [Mass ratio]23HighRogers Memorial Hospital - MilwaukeeLaboratory - Chemistry and Chemistry - challengeon [id number]/1.73 sq M.predicted MDRD (S/P/Bld) [Vol rate/Area][facility] HospitalComment on above:Average GFR for 60-69 years old: 85 mL/min/1.73sq m Chronic Kidney Disease: <60 mL/min/1.73sq m Kidney failure: <15 mL/min/1.73sq m eGFR calculated using average adult body mass. Additional eGFR calculator available at: http://www.Perpetuelle.com/multiple_crcl_2011.htm Stage 1: Some kidney damage normal GFR [...] No evidence of acute fracture or dislocation. Loqc-af-jjmspwuq glenohumeral osteoarthritis. Unchanged benign-appearing soft tissue calcification [...] clips project over the bilateral inguinal regions. [facility] Yanira Hahn MD - 02/09/2021 EXAMINATION: 4 XRAY VIEWS OF THE LEFT SHOULDER; ONE XRAY VIEW OF THE CHEST; THREE XRAY VIEWS OF THE SACRUM/COCCYX 02/09/2021 12:35 pm COMPARISON: Chest radiograph, 01/12/2021 and shoulder radiograph, 04/12/2019 HISTORY: ORDERING SYSTEM PROVIDED HISTORY: fall TECHNOLOGIST PROVIDED HISTORY: fall FINDINGS: Left shoulder: No evidence of acute fracture or dislocation. Pttf-mc-diovnooq glenohumeral osteoarthritis. Unchanged benign-appearing soft tissue calcification [...] fracture of the bony sacrum or coccyx. [employer] Work Phone: No Panel InformationOrdered By: Yanira Jackson on [id number] Phone: [phone]-DFGqg 28-58-3405MMU Coag (Bld) [Relative time] 1.0 {INR}[facility] HospitalSensegSaint John'S [facility] on above: Non-therapeutic Range: INR = 0.9-1.2 Therapeutic Range: Moderate Anticoagulant Intensity: INR = 2.0-3.0 High Anticoagulant Intensity: INR = 2.5-3.5 PT Coag (PPP) [Time]12.9 sMAscension Saint Clare's HospitalTroponinon 45-09-9958Abwgmlnr InterpNOT REPORTEDKettering Health Greene Memorialni TNOT REPORTED<0.03 ng/mLPike Community HospitalIzenda, Inc. [facility] Troponin, High Bfqlhqekvlx63 ng/L0 - 14 ng/LMCleveland Clinic Avon Hospital on above: High Sensitivity Troponin values cannot be compared with other Troponin methodologies. Patients with high levels of Biotin oral intake (i.e >5mg/day) may have falsely decreased Troponin levels. Samples collected within 8 hours of biotin intake may require additional information for diagnosis. Lezhin EntertainmentXR CHEST PORTABLEon [id number] Study observation (narrative)CrowdZone Phone: XR KNEE RIGHT (3 VIEWS)on 51-07-6872Wb acute findings. [facility] CONSOLIDATEDEXAMINATION: THREE XRAY VIEWS OF THE RIGHT KNEE 02/09/2021 12:34 pm COMPARISON: January 13, 2020 HISTORY: ORDERING SYSTEM PROVIDED HISTORY: pain s/p fall TECHNOLOGIST PROVIDED HISTORY: pain s/p fall FINDINGS: Knee alignment is anatomic. No acute osseous abnormalities. There is generalized osteopenia. Skhq-bo-npmapmfy tricompartmental degenerative change most significant medial femorotibial compartment with loss joint space and osteophyte formation. No significant joint effusion. Atherosclerosis throughout the soft tissues. [facility] Lele Gómez DO - 02/09/2021 EXAMINATION: THREE XRAY VIEWS OF THE RIGHT KNEE 02/09/2021 12:34 pm COMPARISON: January 13, 2020 HISTORY: ORDERING SYSTEM PROVIDED HISTORY: pain s/p fall TECHNOLOGIST PROVIDED HISTORY: pain s/p fall FINDINGS: Knee alignment is anatomic. No acute osseous abnormalities. There is generalized osteopenia. Aoxc-tk-kqlvlzes tricompartmental degenerative change most significant medial femorotibial compartment with loss joint space and osteophyte formation. No significant joint effusion. Atherosclerosis throughout the soft tissues. IMPRESSION: No acute findings. [employer] Phone: radiology Study observation (narrative)[employer] Phone: XR KNEE RIGHT (3 VIEWS)Ordered By: Lele Jacques on [id number] Phone: XR SACRUM COCCYX (MIN 2 VIEWS)on 74-24-8854Hmppevqmi Study observation (narrative)C[employer] Phone: XR SHOULDER LEFT (MIN 2 VIEWS)on 53-06-5789Evehfeymk Study observation (narrative)C[employer] Phone: cBC Auto DifferentialOrdered By: Marita Munoz on 70-67-1157Jimcrgcd Eos #0.25P[facility] HospitalAccelitec Phone: absolute Immature Granulocyte0.03P[facility] HospitalAccelitec Phone: absolute Lymph #0.77LowPike Community HospitalAccelitec Phone: absolute Nelson #0.29[facility] HospitalAccelitec Phone: basophils (Bld) [#/Vol]0.09 10*3/uLPike Community HospitalAccelitec Phone: basophils/100 WBC (Bld)1 %0 - 2 %CrowdZone Phone: differential TypeNOT REPORTEDPike Community HospitalAccelitec Phone: eosinophils/100 WBC (Bld)3 %1 - 4 %C[employer] Phone: Hematocrit (Bld) [Volume fraction]44.1 %36.3 - 47.1 % [employer] Phone: Hemoglobin.gastrointestinal spec 1 Ql (Stl)14.5 g/dL 11.9 - 15.1 g/dLPike Community HospitalAccelitec Phone: Immature granulocytes/100 WBC (Bld)0 %0P[facility] HospitalAccelitec Phone: Interpretation and review of laboratory results AbnormalPike Community HospitalAccelitec Phone: lymphocytes/100 WBC (Bld)8 %Low24 - 43 %C[employer] Phone: MCH (RBC) [Entitic mass]29.8 pg25.2 - 33.5 pgPike Community HospitalAccelitec Phone: MCHC (RBC) [Mass/Vol]32.9 g/dL28.4 - 34.8 g/dLPike Community HospitalAccelitec Phone: MCV (RBC) [Entitic vol]90.7 fL82.6 - 102.9 fLCrowdZone Phone: [phone]/100 WBC (Bld)3 %3 - 12 %C[employer] Phone: NRBC Automated0.00.0 per 100 WBCCrowdZone Phone: Platelet distribution width (Bld) [Ratio]15.8 %High 11.8 - 14.4 %C[employer] Phone: [phone] EstimateNOT REPORTEDCrowdZone Phone: [phone] mean volume (Bld) [Entitic vol]9.2 fL8.1 - 13.5 fLPike Community HospitalAccelitec Phone: [phone] (Bld) [#/Vol]298 10*3/uLCrowdZone Phone: [phone] (Bld) [#/Vol]4.86 10*6/uL3.95 - 5.11 m/Borro Phone: [phone] (Bld) [#/Vol]NOT REPORTEDPike Community HospitalAccelitec Phone: Segmented neutrophils/100 WBC (Bld)85 %High36 - 65 % Crowd[employer] Phone: Segs Absolute7.91P[facility] HospitalAccelitec Phone: WBC (Bld) [#/Vol]9.3 10*3/uLCrowdZone Phone: [phone] (Bld) [#/Vol]NOT REPORTEDPike Community HospitalAccelitec Phone: [facility] HospitalAccelitec Phone: [phone]-27, RapidOrdered By: Marita Munoz on 43-31-7555JDYZ-CoV-2 (COVID-19) RNA JANIA+probe Ql (Unsp spec)Not detectedNot DetectedCrowdZone Phone: comment on above: Rapid NAAT: The [...] management decisions. Fact sheet for Healthcare Providers: https://www.fda.gov/media/598862/download Fact sheet for Patients: https://www.fda.gov/media/328139/download Methodology: Isothermal Nucleic Acid Amplification Specimen Description.NASOPHARYNGEAL SWABCrowdZone Phone: [facility] HospitalAccelitec Phone: cT ABDOMEN PELVIS WO CONTRAST Additional [...] obstruction, as discussed above. 9. Atrophic right kidney.C[employer] Phone: eXAMINATION: CT OF THE ABDOMEN AND [...] subcutaneous soft tissues are otherwise unremarkable in appearance.[employer] Work Phone: e, [facility] Incoming Radiant Results From [employer] - 01/17/2021 6:31 AM EDT EXAMINATION: CT [...] as discussed above. 9. Atrophic right kidney. [employer] Phone: Crowd[employer] Phone: comprehensive Metabolic Panel w/ Reflex to MGOrdered By: Marita Munoz on 63-99-9668Tzslcnv [Mass/Vol]4.1 g/dL3.5 - 5.2 g/dLCrowdZone Phone: albumin/Globulin [Mass ratio]1.4 {ratio}[facility] Phone: SLP (Bld) [Catalytic activity/Vol]114 U/LHigh35 - 104 U/LMlicking memorial hospitaly [employer] Work Phone: aLT [Catalytic activity/Vol]6 U/L5 - 33 U/LMlicking memorial hospitaly [employer] Work Phone: anion gap [Moles/Vol]14 mmol/L9 - 17 mmol/LMercy RepReg[employer] Work Phone: aST [Catalytic activity/Vol]10 U/L<32MerAccelitec Phone: bilirubin [Mass/Vol]0.38 mg/dL0.3 - 1.2 mg/dLPike Community HospitalAccelitec Phone: calcium [Mass/Vol]9.6 mg/dL8.6 - 10.4 mg/dLPike Community HospitalJoyhound Work Phone: Xhloride [Moles/Vol]99 mmol/L98 - 107 mmol/LMRETAIL PROy Rep[employer] Work Phone: cO2 [Moles/Vol]23 mmol/L20 - 31 mmol/LMsycamore medical center Rep[employer] Work Phone: creatinine [Mass/Vol]1.09 mg/dLHigh0.50 - 0.90 mg/dL [facility] [employer] Phone: Free PSA/Total PSA [Mass fraction]7.0 g/dL6.4 - 8.3 g/dLPike Community HospitalAccelitec Phone: GFR >60>60 mL/minPike Community HospitalAccelitec Phone: GFR Non- Ihahhlet53 mL/minLow>60P[facility] HospitalAccelitec Phone: Glucose [Mass/Vol]143 mg/wZPvpi35 - 99 mg/dLPike Community HospitalAccelitec Phone: Interpretation and review of laboratory results AbnormalPike Community HospitalJoyhound Work Phone: potassium [Moles/Vol]3.9 mmol/L3.7 - 5.3 mmol/LMsycamore medical center RepRegen Work Phone: sodium [Moles/Vol]136 mmol/L135 - 144 mmol/LMlicking memorial hospitaly [employer] Work Phone: Urea nitrogen (BldV) [Mass/Vol]16 mg/dL8 - 23 mg/dL [facility] Phone: Urea nitrogen/Creatinine (Bld) [Mass ratio]15[facility] HospitalAccelitec Phone: [facility] HospitalAccelitec Phone: laboratory - Chemistry and Chemistry - challenge Ordered By: Marita Munoz on 23-85-6736IDB/1.73 sq M.predicted MDRD (S/P/Bld) [Vol rate/Area][facility] Phone: comment on above:Average GFR for 60-69 years old: 85 mL/min/1.73sq m Chronic Kidney Disease: <60 mL/min/1.73sq m Kidney failure: <15 mL/min/1.73sq m eGFR calculated using average adult body mass. Additional eGFR calculator available at: http://www.Perpetuelle.com/multiple_crcl_2012.htm Stage 1: Some kidney damage normal GFR Stage 2: Mild kidney damage GFR 60-89 Stage 3: Moderate kidney damage GFR 30-59 Stage 4: Severe kidney damage GFR 15-29 Stage 5: Severe kidney damage GFR <15 ESRD - chronic treatment by dialysis or transplant Lactic acid, plasmaOrdered By: Marita Munoz on 52-01-3429Wenrzae [Moles/Vol]1 mmol/L0.5 - 2.2 mmol/LMlicking memorial hospitaly [employer] Work Phone: lactic Acid, Whole BloodNOT REPORTED0.7 - 2.1 mmol/L [facility] Phone: [facility] HospitalAccelitec Phone: lipaseOrdered By: Marita Munoz on 58-83-6450Mmafbp [Catalytic activity/Vol]37 U/L13 - 60 U/LMercy RepRegen Work Phone: [facility] HospitalJoyhound Work Phone: basic Metabolic Panel w/ Reflex to MGOrdered By: Albert Ibrahim on 41-42-7805Aubts gap [Moles/Vol]11 mmol/L9 - 17 mmol/LMlicking memorial hospitaly [employer] Work Phone: calcium [Mass/Vol]8.9 mg/dL8.6 - 10.4 mg/dLPike Community HospitalAccelitec Phone: chloride [Moles/Vol]104 mmol/L98 - 107 mmol/LMlicking memorial hospitaly [employer] Work Phone: cO2 [Moles/Vol]24 mmol/L20 - 31 mmol/LMlicking memorial hospitaly [employer] Work Phone: creatinine [Mass/Vol]0.87 mg/dL0.50 - 0.90 mg/dLMercy Health Lorain Hospital [employer]Media Phone: GFR >60>60 mL/minPike Community HospitalAccelitec Phone: GFR Non->60>60 mL/minPike Community HospitalAccelitec Phone: Glucose [Mass/Vol]94 mg/dL70 - 99 mg/dLMercy Health Lorain Hospital [employer] Phone: potassium [Moles/Vol]4.6 mmol/L3.7 - 5.3 mmol/LMlicking memorial hospitaly [employer] Work Phone: sodium [Moles/Vol]139 mmol/L135 - 144 mmol/LMlicking memorial hospitaly [employer] Work Phone: Urea nitrogen (BldV) [Mass/Vol]9 mg/dL8 - 23 mg/dL [facility] [employer] Phone: Urea nitrogen/Creatinine (Bld) [Mass ratio]10[facility] HospitalAccelitec Phone: cBC Auto DifferentialOrdered By: Albert Ibrahim on 25-88-8248Spatsode Eos #0.23[facility] HospitalAccelitec Phone: absolute Immature Granulocyte<0.03[facility] [employer] Phone: absolute Lymph #1.24[facility] HospitalAccelitec Phone: absolute Nelson #0.56[facility] [employer] Phone: basophils (Bld) [#/Vol]0.10 10*3/uLPike Community HospitalAccelitec Phone: basophils/100 WBC (Bld)1 %0 - 2 %Crowd[employer] Phone: differential TypeNOT REPORTEDMerAccelitec Phone: eosinophils/100 WBC (Bld)3 %1 - 4 %C[employer] Phone: Hematocrit (Bld) [Volume fraction]42.7 %36.3 - 47.1 % [facility] Phone: Hemoglobin.gastrointestinal spec 1 Ql (Stl)13.7 g/dL 11.9 - 15.1 g/dLPike Community HospitalAccelitec Phone: Immature granulocytes/100 WBC (Bld)0 %0P[facility] HospitalAccelitec Phone: Interpretation and review of laboratory results AbnormalPike Community HospitalAccelitec Phone: lymphocytes/100 WBC (Bld)16 %Low24 - 43 %C[employer] Phone: MCH (RBC) [Entitic mass]29.7 pg25.2 - 33.5 pgPike Community HospitalAccelitec Phone: MCHC (RBC) [Mass/Vol]32.1 g/dL28.4 - 34.8 g/dLPike Community HospitalAccelitec Phone: MCV (RBC) [Entitic vol]92.4 fL82.6 - 102.9 fLPike Community HospitalAccelitec Phone: Monocytes/100 WBC (Bld)7 %3 - 12 %[employer] Phone: [phone] Automated0.00.0 per 100 WBCCrowdZone Phone: [phone] distribution width (Bld) [Ratio]16.6 %High 11.8 - 14.4 %[employer] Phone: [phone] EstimateNOT REPORTEDCrowdZone Phone: [phone] mean volume (Bld) [Entitic vol]8.9 fL8.1 - 13.5 fLCrowdZone Phone: Platelets (Bld) [#/Vol]270 10*3/uLCrowdZone Phone: RBC (Bld) [#/Vol]4.62 10*6/uL3.95 - 5.11 m/uLCrowdZone Phone: RBC (Bld) [#/Vol]NOT REPORTEDCrowdZone Phone: Segmented neutrophils/100 WBC (Bld)73 %High36 - 65 % [employer] Phone: [phone] Absolute5.72CrowdZone Phone: WBC (Bld) [#/Vol]7.9 10*3/[employer]ro Phone: WBC (Bld) [#/Vol]NOT REPORTEDCrowdZone Phone: [phone] HospitalAccelitec Phone: CT Head WO ContrastOrdered By: Albert Ibrahim on 37-23-9771Yp acute intracranial abnormality. Areas of minimally decreased attenuation density in the deep white matter and periventricular regions compatible with old micro ischemic changes.C[employer] Phone: eXAMINATION: CT OF THE HEAD WITHOUT [...] in vessels at the base of the brain.[employer] Work Phone: e, [facility] Incoming Radiant Results From [employer] - 01/12/2021 1:32 PM EDT EXAMINATION: CT [...] regions compatible with old micro ischemic changes. [employer] Phone: Crowd[employer] Phone: laboratory - Chemistry and Chemistry - challenge Ordered By: Albert Ibrahim on 84-90-8673VQJ/1.73 sq M.predicted MDRD (S/P/Bld) [Vol rate/Area][employer] Phone: comment on above:Average GFR for 60-69 years old: 85 mL/min/1.73sq m Chronic Kidney Disease: <60 mL/min/1.73sq m Kidney failure: <15 mL/min/1.73sq m eGFR calculated using average adult body mass. Additional eGFR calculator available at: http://www.Perpetuelle.com/multiple_crcl_2012.htm Stage 1: Some kidney damage normal GFR Stage 2: Mild kidney damage GFR 60-89 Stage 3: Moderate kidney damage GFR 30-59 Stage 4: Severe kidney damage GFR 15-29 Stage 5: Severe kidney damage GFR <15 ESRD - chronic treatment by dialysis or transplant MagnesiumOrdered By: Albert Ibrahim on 12-68-4698Gcbknunsa [Mass/Vol]1.9 mg/dL1.6 - 2.6 mg/dLCrowdZone Phone: no Panel InformationOrdered By: Albert Ibrahim on 33-34-4089KwvogCrowdZone Phone: no acute findings.Crowd[employer] Phone: eXAMINATION: XRAY VIEWS OF THE RIGHT TIBIA AND FIBULA; THREE XRAY VIEWS OF THE RIGHT KNEE 01/12/2021 12:52 pm COMPARISON: None. HISTORY: ORDERING SYSTEM PROVIDED HISTORY: pain TECHNOLOGIST PROVIDED HISTORY: pain FINDINGS: Alignment anatomic. No acute fracture. There is generalized osteopenia. Mild tricompartmental degenerative change right knee. No significant joint effusion. There is atherosclerosis throughout the soft tissues.Crowd[employer] Phone: edi, Mhpn Incoming Radiant Results From [employer] - 01/12/2021 1:05 PM EDT EXAMINATION: XRAY [...] the soft tissues. IMPRESSION: No acute findings. Crowd[employer] Phone: [facility] HospitalAccelitec Phone: TroponinOrdered By: Albert Ibrahim on 12-40-6835Gkekpcll InterpNOT REPORTEDPike Community HospitalAccelitec Phone: Troponin TNOT REPORTED<0.03 ng/mLPike Community HospitalAccelitec Phone: Troponin, High Ynyrfnfhkzj45 ng/L0 - 14 ng/LMsycamore medical center RampedMedia Phone: comment on above: High Sensitivity Troponin values cannot be compared with other Troponin methodologies. Patients with high levels of Biotin oral intake (i.e >5mg/day) may have falsely decreased Troponin levels. Samples collected within 8 hours of biotin intake may require additional information for diagnosis. Crowd[employer] Phone: XR CHEST PORTABLEOrdered By: Albert Ibrahim on 40-79-5862Ctfeythujthnuo suggesting COPD. No acute findings.C[employer] Phone: eXAMINATION: ONE XRAY VIEW OF THE CHEST 01/12/2021 12:49 pm COMPARISON: December 28, 2020 HISTORY:ORDERING SYSTEM PROVIDED HISTORY: dizziness TECHNOLOGIST PROVIDED HISTORY: dizziness FINDINGS: Lungs are hyperinflated suggesting COPD. No focal consolidation, pneumothorax or pleural effusion. Cardiac and mediastinal silhouettes unremarkable. Osseous structures grossly intact.Crowd[employer] Phone: edi, Mhpn Incoming Radiant Results From [employer] - 01/12/2021 1:03 PM EDT EXAMINATION: ONE XRAY VIEW OF THE CHEST 01/12/2021 12:49 pm COMPARISON: December 28, 2020 HISTORY: ORDERING SYSTEM PROVIDED HISTORY: dizziness TECHNOLOGIST PROVIDED HISTORY: dizziness FINDINGS: Lungs are hyperinflated suggesting COPD. No focal consolidation, pneumothorax or pleural effusion. Cardiac and mediastinal silhouettes unremarkable. Osseous structures grossly intact. IMPRESSION: Hyperinflation suggesting COPD. No acute findings. Crowd[employer] Phone: [facility] HospitalAccel[facility]c Phone: XR PELVIS (1-2 VIEWS)Ordered By: Albert Ibrahim on 75-95-9750Wh acute findings.C[employer] Phone: eXAMINATION: ONE XRAY VIEW OF THE PELVIS 01/12/2021 12:50 pm COMPARISON: March 21, 2020 HISTORY:ORDERING SYSTEM PROVIDED HISTORY: fall TECHNOLOGIST PROVIDED HISTORY: fall FINDINGS: AP image of the pelvis obtained. No displaced fractures. Alignment anatomic on this single view. Advanced right hip degenerative change. SI joints symmetric and patent. Surgical clips both inguinal regions.Crowd[employer] Phone: edi, Mhpn Incoming Radiant Results From [employer] - 01/12/2021 1:28 PM EDT EXAMINATION: ONE [...] both inguinal regions. IMPRESSION: No acute findings. Crowd[employer] Phone: [facility] HospitalAccelitec Phone: XR THORACIC SPINE (2 VIEWS)Ordered By: Albert Ibrahim on 07-33-9255Hf acute findings.C[employer] Phone: eXAMINATION: XRAY VIEWS OF THE THORACIC SPINE 01/12/2021 12:51 pm COMPARISON: February 11, 2012 HISTORY: ORDERING SYSTEM PROVIDED HISTORY: pain TECHNOLOGIST PROVIDED HISTORY: pain FINDINGS: Thoracic s pine alignment is anatomic. There is generalized osteopenia. No acute fracture. Vertebral body axial heights maintained. Mild endplate spondylosis throughout. There is calcification of the aorta.C[employer] Phone: edi, Mhpn Incoming Radiant Results From [employer] - 01/12/2021 1:27 PM EDT EXAMINATION: XRAY VIEWS OF THE THORACIC SPINE 01/12/2021 12:51 pm COMPARISON: February 11, 2012 HISTORY: ORDERING SYSTEM PROVIDED HISTORY: pain TECHNOLOGIST PROVIDED HISTORY: pain FINDINGS: Thoracic spine alignment is anatomic. There is generalized osteopenia. No acute fracture. Vertebral body axial heights maintained. Mild endplate spondylosis throughout. There is calcification of the aorta. IMPRESSION: No acute findings. [employer] Phone: Crowd[employer] Phone: cBC auto differentialOrdered By: Mukesh Marley on 62-76-3492Rmsisdtb Eos #0.30C[employer] Phone: absolute Immature Granulocyte0.03C[employer] Phone: absolute Lymph #1.39[facility] HospitalAccelitec Phone: absolute Nelson #0.58[facility] HospitalAccelitec Phone: basophils (Bld) [#/Vol]0.06 10*3/uLCrowdZone Phone: basophils/100 WBC (Bld)1 %0 - 2 %C[employer] Phone: differential TypeNOT REPORTEDCrowdZone Phone: eosinophils/100 WBC (Bld)3 %1 - 4 %C[employer] Phone: Hematocrit (Bld) [Volume fraction]41.3 %36.3 - 47.1 % [employer] Phone: Hemoglobin.gastrointestinal spec 1 Ql (Stl)13.5 g/dL 11.9 - 15.1 g/dLPike Community HospitalAccelitec Phone: Immature granulocytes/100 WBC (Bld)0 %0P[facility] HospitalAccelitec Phone: Interpretation and review of laboratory results AbnormalPike Community HospitalAccelitec Phone: lymphocytes/100 WBC (Bld)16 %Low24 - 43 %Crowd[employer] Phone: MCH (RBC) [Entitic mass]29.3 pg25.2 - 33.5 pgPike Community HospitalAccelitec Phone: MCHC (RBC) [Mass/Vol]32.7 g/dL28.4 - 34.8 g/dLPike Community HospitalAccelitec Phone: MCV (RBC) [Entitic vol]89.6 fL82.6 - 102.9 fLPike Community HospitalAccelitec Phone: Monocytes/100 WBC (Bld)7 %3 - 12 %C[employer] Phone: NRBC Automated0.00.0 per 100 WBCPike Community HospitalAccelitec Phone: platelet distribution width (Bld) [Ratio]17.8 %High 11.8 - 14.4 %Crowd[employer] Phone: platelet EstimateNOT REPORTEDPike Community HospitalAccelitec Phone: Zlatelet mean volume (Bld) [Entitic vol]9.3 fL8.1 - 13.5 fLPike Community HospitalAccelitec Phone: platelets (Bld) [#/Vol]256 10*3/uLPike Community HospitalAccelitec Phone: RBC (Bld) [#/Vol]4.61 10*6/uL3.95 - 5.11 m/uLCrowdZone Phone: rBC (Bld) [#/Vol]NOT REPORTEDCrowdZone Phone: segmented neutrophils/100 WBC (Bld)73 %High36 - 65 % [employer] Phone: segs Absolute6.44CrowdZone Phone: WBC (Bld) [#/Vol]8.8 10*3/uLCrowdZone Phone: WBC (Bld) [#/Vol]NOT REPORTEDCrowdZone Phone: Crowd[employer] Phone: cT ABDOMEN PELVIS W IV CONTRAST Additional Contrast? NoneOrdered By: Mukesh Marley on 44-94-1727Dpfni is no acute finding on this contrast-enhanced [...] to an underlying severe right renal artery stenosis.[employer] Phone: eXAMINATION: CT OF THE ABDOMEN AND [...] to be chronically occluded as are the [place] iliac arteries. A left lower extremity arterial [...] small and large bowel is unchanged from prior.C[employer] Phone: e, [facility] Incoming Radiant Results From [employer] - 12/04/2020 6:01 PM EDT EXAMINATION: CT [...] 23, 2019. HISTORY: ORDERING SYSTEM PROVIDED HISTORY: [facility] pain TECHNOLOGIST PROVIDED HISTORY: [facility] pain Decision Support Exception - unselect [...] to be chronically occluded as are the [place] iliac arteries. A left lower extremity arterial [...] an underlying severe right renal artery stenosis. [employer] Phone: Crowd[employer] Phone: comprehensive Metabolic PanelOrdered By: Mukesh Marley on 77-46-5688Cpqgehv [Mass/Vol]4 g/dL3.5 - 5.2 g/dLCrowdZone Phone: albumin/Globulin [Mass ratio]1.4 {ratio}C[employer] Phone: aLP (Bld) [Catalytic activity/Vol]84 U/L35 - 104 U/L [employer] Phone: aLT [Catalytic activity/Vol]8 U/L5 - 33 U/LMScoreGrid Phone: anion gap [Moles/Vol]12 mmol/L9 - 17 mmol/LMlicking memorial hospitaly RepRegen Work Phone: aST [Catalytic activity/Vol]10 U/L<32[facility] [employer] Phone: bilirubin [Mass/Vol]mg/dLLow0.3 - 1.2 mg/dLMercy Health Lorain Hospital [employer] Phone: calcium [Mass/Vol]9.6 mg/dL8.6 - 10.4 mg/dLMercy Health Lorain Hospital [employer] Phone: chloride [Moles/Vol]108 mmol/LHigh98 - 107 mmol/LMsycamore medical center RepRegen Work Phone: cO2 [Moles/Vol]21 mmol/L20 - 31 mmol/LMsycamore medical center RepRegen Work Phone: creatinine [Mass/Vol]0.92 mg/dLHigh0.50 - 0.90 mg/dL [facility] [employer] Phone: Free PSA/Total PSA [Mass fraction]6.9 g/dL6.4 - 8.3 g/dLMercy Health Lorain Hospital [employer] Phone: GFR >60>60 mL/minMercy Health Lorain Hospital [employer] Phone: GFR Non->60>60 mL/minMercy Health Lorain Hospital RepReg[employer] Work Phone: Glucose [Mass/Vol]105 mg/mWWnjm63 - 99 mg/dLMercy Health Lorain Hospital [employer] Phone: Interpretation and review of laboratory results AbnormalMercy Health Lorain Hospital [employer] Phone: potassium [Moles/Vol]4.2 mmol/L3.7 - 5.3 mmol/LMlicking memorial hospitaly [employer] Work Phone: sodium [Moles/Vol]141 mmol/L135 - 144 mmol/LMlicking memorial hospitaly [employer] Work Phone: Urea nitrogen (BldV) [Mass/Vol]18 mg/dL8 - 23 mg/dL [employer] Phone: Urea nitrogen/Creatinine (Bld) [Mass ratio]20[facility] HospitalJoyhound Work Phone: [facility]Joy[facility] Work Phone: laboratory - Chemistry and Chemistry - challenge Ordered By: Mukesh Marley on 96-47-1764JPB/1.73 sq M.predicted MDRD (S/P/Bld) [Vol rate/Area][employer] Phone: comment on above:Average GFR for 60-69 years old: 85 mL/min/1.73sq m Chronic Kidney Disease: <60 mL/min/1.73sq m Kidney failure: <15 mL/min/1.73sq m eGFR calculated using average adult body mass. Additional eGFR calculator available at: [email or web address]_crcl_[email or web address].htm Stage 1: Some kidney damage normal GFR Stage 2: Mild kidney damage GFR 60-89 Stage 3: Moderate kidney damage GFR 30-59 Stage 4: Severe kidney damage GFR 15-29 Stage 5: Severe kidney damage GFR <15 ESRD - chronic treatment by dialysis or transplant Microscopic UrinalysisOrdered By: Mukesh Marley on 12-04-2020-CrowdZone Phone: amorphous, UANOT REPORTEDNoneMeSenseg Work Phone: bacteria, UA3+AbnormalNonKettering Health Washington TownshipSenseg Work Phone: casts UANOT REPORTED/LPFMercy RepRegen Work Phone: crystals, UANOT REPORTEDNone /HPFMerJoyhound Work Phone: epithelial Cells UA0 TO 2Msycamore medical center RepRegen Work Phone: Interpretation and review of laboratory results AbnormalPike Community HospitalJoyhound Work Phone: Mucus, UANOT REPORTEDNoneMeohio valley surgical hospital RepRegen Work Phone: Other Observations UANOT REPORTEDNOT REQ.[employer] Work Phone: rBC, UANoneMercy Health Work Phone: renal Epithelial, UANOT REPORTED0 /HPFMercy Health Work Phone: Trichomonas, UANOT REPORTEDNoneMercy Health Work Phone: WBC, UA0 TO 2[facility] Work Phone: Yeast, UANOT REPORTEDNoneMercy Health Work Phone: [facility] Work Phone: Urinalysis Reflex to CultureOrdered By: Mukesh Marley on [id number] UrineNegativeNEGATIVEMercy Health Work Phone: color, UAYELLOWYELLOWMercy Health Work Phone: Glucose, UrNegativeNEGATIVEMercy Health Work Phone: Interpretation and review of laboratory results AbnormalMercy Health Work Phone: Ketones Ql (U)NegativeNEGATIVEMercy Health Work Phone: leukocyte esterase Test strip Ql (U)NegativeNEGATIVE [facility] Work Phone: Nitrite, UrinePositiveAbnormalNEGATIVEMercy Health Work Phone: pH, UA6.5[facility] Work Phone: protein, UANegativeNEGATIVEMercy Health Work Phone: specific [place], UA1.015[facility] Work Phone: Turbidity UACLEARCLEARMercy Health Work Phone: Urinalysis CommentsNOT REPORTEDMercy Health Work Phone: Urine HgbNegativeNEGATIVEMercy Health Work Phone: Urobilinogen, UrineNormalNormalMercy Health Work Phone: [facility] RepRegen Work Phone: Otheron 17-10-2296Mp convincing evidence for acute fracture or malalignment of the thoracolumbar spine. Multilevel degenerative disc disease of the thoracolumbar spine. Disc extrusion with superior migration of the L2-L3 disc. Multiple additional chronic findings as described above.[facility] CenterCARLOSEXAMINATION: CT OF THE THORACIC SPINE WITHOUT CONTRAST; [...] migration of the L2-L3 disc resulting in csqe-ts-ayzfwdyc central canal narrowing. SOFT TISSUES: There is subtle reticulonodular opacities and ground- glass opacities within the visualized lung parenchyma. No pleural effusion or pneumothorax. Bilateral adrenal adenomas. Status post aortoiliac bypass grafting.[facility] CenterAudelia Mhpn Incoming Radiant Results From [employer] - 04/05/2020 2:59 PM EST EXAMINATION: CT [...] migration of the L2-L3 disc resulting in qiwn-it-pfuryszm central canal narrowing. SOFT TISSUES: There is [...] Multiple additional chronic findings as described above. [facility] HospitalSensegAbrazo [facility] Campus [id number] Coag (Bld) [Time]24.3 [facility] on above: IV Heparin Therapy Range: 62.0-94.0 Brain Natriuretic Peptideon 16-84-6076Rcdpmjaaloh peptide B (Bld) [Mass/Vol]Pro- BNP Reference Range:Lezhin EntertainmentTrinity Health [facility] on above: Rule Out: <300 Monahan Zone: Age <50 300-450 Age 50-75 300-900 Age >75 300-1800 Usually represents mild to moderate HF but other cardiopulmonary causes cannot be ruled out. Rule In: Age <50 >450 Age 50-75 >900 Age >75 >1800 Natriuretic peptide B (Bld) [Mass/Vol]283 pg/mL<300[facility]- [place], KYComment on above:Pro-BNP results cannot be compared to BNP results.CBC Auto Differential on 63-13-3515Uuentjwmi (Bld) [#/Vol]0.10 10*3/[facility], [place] Basophils/100 WBC (Bld)1 %0 - 2 %[facility], KSDifferential TypeNOT REPORTEDCommunity [facility], CARLOSEosinophils (Bld) [#/Vol]0.82 10*3/uLMarion Hospital, KYEosinophils/100 WBC (Bld)5 %High1 - 4 %[facility], [place] Erythrocyte distribution width (RBC) [Ratio]15.0 %High11.8 - 14.4 %[facility], KSHematocrit (Bld) [Volume fraction]42.5 %36.3 - 47.1 %[facility], [place] Hemoglobin (Bld) [Mass/Vol]13.6 g/dL11.9 - 15.1 g/dLCommunity Regional Medical Center, KSImmature granulocytes (Bld) [#/Vol]1 %Rgmg6OsekpCommunity Regional Medical Center, KSImmature granulocytes (Bld) [#/Vol]0.08 10*3/[facility], KSInterpretation and review of laboratory resultsAbnormalCommunity Regional Medical Center, KSLymphocytes (Bld) [#/Vol]2.06 10*3/[facility], KYLymphocytes/100 WBC (Bld)12 %Low24 - 43 %[facility], KSMCH (RBC) [Entitic mass]28.6 pg25.2 - 33.5 pgCommunity Regional Medical Center, [place] MCHC (RBC) [Mass/Vol]32.0 g/dL28.4 - 34.8 g/dLCommunity [facility] Medical Center, KSMCV (RBC) [Entitic vol]89.5 fL82.6 - 102.9 fLCommunity Regional Medical Center, KSMonocytes (Bld) [#/Vol] 0.75 10*3/[facility], KYMonocytes/100 WBC (Bld)4 %3 - 12 %[facility]- [place], KYPlatelet mean volume (Bld) [Entitic vol]9.8 fL8.1 - 13.5 fLMercy Health- [place], KYPlatelets (Bld) [#/Vol]NOT REPORTEDMercy Health- [place], KYPlatelets (Bld) [#/Vol]224 10*3/uLMercy Health- [place], KYRBC (Bld) [#/Vol]4.75 10*6/uL3.95 - 5.11 m/uLMercy Health- [place], KYRBC morphology finding Nom (Bld)NOT REPORTEDPike Community Hospitalcy Health- [place], KYSegmented neutrophils/100 WBC (Bld)78 %High36 - 65 %[facility]- [place], KYSegs Ycrygark07.60HighMercy Health- [place], KYWBC (Bld) [#/Vol]17.4 10*3/uL HighMer Health- [place], KYWBC (Bld) [#/Vol]0.0 10*3/uL0.0 per 100 WBCPike Community Hospitalcy Health- [place], KYWBC MorphologyNOT REPORTEDMer Health- [place], KYComprehensive Metabolic Panel w/ Reflex to MGon [id number] [Mass/Vol]4 g/dL3.5 - 5.2 g/dLPike Community Hospitalcy Health- [place], KYAlbumin/Globulin [Mass ratio]1.5 {ratio}[facility]- [place], KYALP [Catalytic activity/Vol]74 U/L35 - 104 U/LMlicking memorial hospitaly Health- [place], KYALT [Catalytic activity/Vol]8 U/L5 - 33 U/LMercy Health- [place], KYAnion gap [Moles/Vol]9 mmol/L9 - 17 mmol/LMercy Health- [place], KYAST [Catalytic activity/Vol]11 U/L<32[facility]- [place], KYBilirubin Ql (U)0.24 mg/dLLow0.3 - 1.2 mg/dLMercy Health- [place], KYBun/Cre Ewmoh15Jdvjm Health- [place], KYCalcium [Mass/Vol]8.9 mg/dL8.6 - 10.4 mg/dLPike Community Hospitalcy Health- [place], KYChloride [Moles/Vol]99 mmol/L98 - 107 mmol/LMercy Health- [place], [place] CO2 [Moles/Vol]28 mmol/L20 - 31 mmol/LMSelect [facility], KYCreatinine [Mass/Vol] 1.27 mg/dLHigh0.5 - 0.9 mg/dLCommunity [facility] Medical Center, KYGFR Rxcmsqlc89 mL/min Low>60[facility], KYGFR Non- Meutxktb15 mL/minLow>60[facility], KYGlucose [Mass/Vol]127 mg/jIPyex62 - 99 mg/dLCommunity Regional Medical Center, KYPotassium [Moles/Vol]4.0 mmol/L3.7 - 5.3 mmol/LMSelect [facility] Specialty [facility], KYProtein [Mass/Vol]6.7 g/dL6.4 - 8.3 g/dLCommunity [facility] Medical Center, KYSodium [Moles/Vol]136 mmol/L135 - 144 mmol/LMSelect Medical Specialty Hospital [facility] [place], KYUrea nitrogen [Mass/Vol]25 mg/dLHigh8 - 23 mg/dLCommunity Regional Medical Center, KYMetabolic Panelon 56-33-6474JRN/1.73 sq M predicted among non- blacks MDRD (S/P/Bld) [Vol rate/Area][place], KYComment on above: Average GFR for 60-69 years old: 85 mL/min/1.73sq m Chronic Kidney Disease: <60 mL/min/1.73sq m Kidney failure: <15 mL/min/1.73sq m eGFR calculated using average adult body mass. Additional eGFR calculator available at: http://www.Sumavisos.Stukent/multiple_crcl_2011.htm Stage 1: Some kidney damage normal GFR Stage 2: Mild kidney damage GFR 60-89 Stage 3: Moderate kidney damage GFR 30-59 Stage 4: Severe kidney damage GFR 15-29 Stage 5: Severe kidney damage GFR <15 ESRD - chronic treatment by dialysis or transplant Otheron 91-29-5780Yragfpulsihxsz and review of laboratory resultsAbnormalBismarck, KYProtime-INRon 49-35-5719JFS Coag (PPP) [Relative time]0.9 {INR} [place], KYComment on above: Non-therapeutic Range: INR = 0.9-1.2 Therapeutic Range: Moderate Anticoagulant Intensity: INR = 2.0-3.0 High Anticoagulant Intensity: INR = 2.5-3.5 PT Coag (PPP) [Time]12.1 sMSelect Medical Specialty Hospital [facility], CARLOSSedimentation Rateon 61-93-7722Vjm Rate8 mm0 - 20 mmCommunity Regional Medical Center, CARLOSTroponinon 22-57-5120Pvjchlhyctoqza and review of laboratory resultsAbnormalCommunity Regional Medical Center, Citlalyoponin I.cardiac [Mass/Vol]NOT REPORTEDCommunity [facility] Medical [facility], Citlalyoponin T.cardiac [Mass/Vol]NOT REPORTED<0.03 ng/mLCommunity [facility], Citlalyoponin, High Qlggqstrqon67 ng/LHigh0 - 14 ng/LMSelect [facility] Specialty [facility], CARLOSComment on above: High Sensitivity Troponin values cannot be compared with other Troponin methodologies. Patients with high levels of Biotin oral intake (i.e >5mg/day) may have falsely decreased Troponin levels. Samples collected within 8 hours of biotin intake may require additional information for diagnosis. Troponin I.cardiac [Mass/Vol]NOT REPORTEDCommunity [facility], Adriananin T.cardiac [Mass/Vol]NOT REPORTED<0.03 ng/mLCommunity [facility], Citllayoponin, High Sensitivity 18 ng/LHigh0 - 14 ng/LMSelect [facility], CARLOSComment on above: High Sensitivity Troponin values cannot be compared with other Troponin methodologies. Patients with high levels of Biotin oral intake (i.e >5mg/day) may have falsely decreased Troponin levels. Samples collected within 8 hours of biotin intake may require additional information for diagnosis. XR CHEST (2 VW)on 85-44-3087It focal consolidation. Mild increased interstitial opacities which are unchanged and could be related to an atypical infection versus chronic changes.[facility], [place], [place] Incoming Radiant Results From [facility]/[employer] - 03/21/2020 3:01 PM EST EXAMINATION: 2 [...] to an atypical infection versus chronic changes. [employer], KYEXAMINATION: 2 XRAY VIEWS OF THE CHEST 03/21/2020 2:29 pm COMPARISON: 03/17/2020 HISTORY: ORDERING SYSTEM PROVIDED HISTORY: palpitations TECHNOLOGIST PROVIDED HISTORY: Palpitations FINDINGS: No focalconsolidation. Cardiomegaly. Mild prominence of the main pulmonary artery which can be seen with pulmonary hypertension. No pulmonary edema. Mild interstitial prominence is unchanged.Lezhin EntertainmentOZARKS MEDICAL CENTER, KYXR HIP LEFT (2-3 VIEWS)on 88-23-8094Gga, [facility] Incoming Radiant Results From [employer] - 03/21/2020 2:51 PM EST EXAMINATION: TWO [...] upper thigh. IMPRESSION: No acute osseous abnormality. [facility]b3 bio [place], KYEXAMINATION: TWO XRAY VIEWS OF THE LEFT [...] vascular surgery noted in the left upper thigh.[employer] [place], KYNo acute osseous abnormality.[facility] RepRegenOZARKS MEDICAL CENTER, KYCBCon 86-28-2787Hfobbgowdso distribution width (RBC) [Ratio]14.9 %High11.8 - 14.4 % [facility] [employer] [place], KYHematocrit (Bld) [Volume fraction]44.4 %36.3 - 47.1 %[facility] RepRegenOZARKS MEDICAL CENTER, KYHemoglobin (Bld) [Mass/Vol]14.0 g/dL11.9 - 15.1 g/dLMerWashington Rural Health Collaborative- [place], KYInterpretation and review of laboratory resultsAbnormalWilson Street Hospital- [place], KYMCH (RBC) [Entitic mass]27.3 pg25.2 - 33.[address]- [place], KYMCHC (RBC) [Mass/Vol]31.5 g/dL28.4 - 34.8 g/dLWilson [address] Hospital- [place], KYMCV (RBC) [Entitic vol] 86.5 fL82.6 - 102.[address]- [place], KYPlatelet mean volume (Bld) [Entitic vol]9.6 fL8.1 - 13.[address]- [place], KYPlatelets (Bld) [#/Vol]219 10*3/uL [facility]- [place], KYRBC (Bld) [#/Vol]5.13 10*6/uLHigh3.95 - 5.11 m/uLWilson [address] Hospital- [place], KYWBC (Bld) [#/Vol]0.0 10*3/uL0.[address]- [place], KYWBC (Bld) [#/Vol]14.4 10*3/uLHighWilson [address] Hospital- [place], KYComprehensive Metabolic Panel w/ Reflex to MGon 43-74-9506Sicnngh [Mass/Vol]3.5 g/dL3.5 - 5.2 g/dLWilson [address] Hospital- [place], KYAlbumin/Globulin [Mass ratio]1.4 {ratio}[facility]- [place], KYALP [Catalytic activity/Vol]72 U/L35 - 104 U/LMCincinnati VA Medical Center- [place], KYALT [Catalytic activity/Vol]7 U/L5 - 33 U/LMsycamore medical center Health- [place], KYAnion gap [Moles/Vol]10 mmol/L9 - 17 mmol/LMsycamore medical center Health- [place], KYAST [Catalytic activity/Vol]11 U/L<32[facility]- [place], KYBilirubin Ql (U)0.19 mg/dLLow0.3 - 1.2 mg/dLWilson [address] Hospital- [place], [place] Bun/Cre RatioNOT REPORTEDWilson Street Hospital- [place], KYCalcium [Mass/Vol]8.6 mg/dL8.6 - 10.4 mg/dLWilson [address] [facility]- [place], KYChloride [Moles/Vol]103 mmol/L98 - 107 mmol/[facility], KYCO2 [Moles/Vol]24 mmol/L20 - 31 mmol/[facility], [place] Creatinine [Mass/Vol]1.04 mg/dLHigh0.5 - 0.9 mg/dLCommunity [facility], KYGFR >60>60 mL/minCommunity Regional Medical Center, KYGFR Non- Bfqcojbi41 mL/minLow>60[facility], KYGFR/1.73 sq M predicted among non-blacks MDRD (S/P/Bld) [Vol rate/Area]NOT REPORTEDCommunity [facility] Medical Center, KYGFR/1.73 sq M predicted among non-blacks MDRD (S/P/Bld) [Vol rate/Area][facility], KYComment on above:Average GFR for 60-69 years old: 85 mL/min/1.73sq m Chronic Kidney Disease: <60 mL/min/1.73sq m Kidney failure: <15 mL/min/1.73sq m eGFR calculated using average adult body mass. Additional eGFR calculator available at: http://www.Perpetuelle.com/multiple_crcl_2012.htm Glucose [Mass/Vol]101 mg/kLBiqk66 - 99 mg/dLCommunity Regional Medical Center, KYInterpretation and review of laboratory resultsAbnoBellevue Hospital, KYPotassium [Moles/Vol]4.3 mmol/L3.7 - 5.3 mmol/[facility], KYProtein [Mass/Vol]6.0 g/dLLow6.4 - 8.3 g/dLCommunity [facility] Medical [facility], KYSodium [Moles/Vol]137 mmol/L135 - 144 mmol/[facility], KYUrea nitrogen [Mass/Vol]20 mg/dL8 - 23 mg/dLCommunity Regional Medical Center, KYPOC Glucose Fingerstickon 32-25-9292Xdtllba [Mass/Vol]102 mg/dL65 - 105 mg/dLCommunity Regional Medical Center, KYGlucose [Mass/Vol]107 mg/wKKxrj81 - 105 mg/dL [facility], KYInterpretation and review of laboratory resultsAbnoBellevue Hospital, KYBasi Metabolic Panel w/ Reflex to MGon 87-47-9155Wtirh gap [Moles/Vol]12 mmol/L9 - 17 mmol/LMlicking memorial hospitaly Health- [place], KYBun/Cre Igjat60Jvqgg Health- [place], KYCalcium [Mass/Vol]9.5 mg/dL8.6 - 10.4 mg/dLMercy Health Lor[facility] Hospital Health- [place], [place] Chloride [Moles/Vol]103 mmol/L98 - 107 mmol/LMlicking memorial hospitaly Health- [place], KYCO2 [Moles/Vol] 24 mmol/L20 - 31 mmol/LMlicking memorial hospitaly Health- [place], KYCreatinine [Mass/Vol]1.12 mg/dLHigh 0.5 - 0.9 mg/dLWilson [address] [facility]- [place], KYGFR >60>60 mL/minMercy Health Lorain Hospital Health- [place], KYGFR Non- Hwyiglnj18 mL/minLow>60[facility]- [place], KYGlucose [Mass/Vol]95 mg/dL70 - 99 mg/dLWilson [address] [facility]- [place], KYInterpretation and review of laboratory resultsAbnormalWilson Street Hospital- [place], KYPotassium [Moles/Vol]5.1 mmol/L 3.7 - 5.3 mmol/LMsycamore medical center Health- [place], KYSodium [Moles/Vol]139 mmol/L135 - 144 mmol/L [facility]- [place], KYUrea nitrogen [Mass/Vol]17 mg/dL8 - 23 mg/dLWilson [address] Hospital- [place], KYCBCon 77-06-6813Hdivnktsplz distribution width (RBC) [Ratio]15.1 %High11.8 - 14.4 %[facility]- [place], KYHematocrit (Bld) [Volume fraction]48.7 %High36.3 - 47.1 %[facility]- [place], KYHemoglobin (Bld) [Mass/Vol]15.3 g/rVUhud51.9 - 15.1 g/dLWilson [address] Hospital- [place], KYInterpretation and review of laboratory resultsAbnormal [facility]- [place], KYMCH (RBC) [Entitic mass]28.1 pg25.2 - 33.[address]- [place], KYMCHC (RBC) [Mass/Vol]31.4 g/dL28.4 - 34.8 g/dLCommunity [facility], KSMCV (RBC) [Entitic vol]89.4 fL82.6 - 102.9 fLCommunity Regional Medical Center, KSPlatelet mean volume (Bld) [Entitic vol]9.4 fL8.1 - 13.5 fLCommunity Regional Medical Center, KSPlatelets (Bld) [#/Vol]282 10*3/uLCommunity Regional Medical Center, KYRBC (Bld) [#/Vol]5.45 10*6/uLHigh3.95 - 5.11 m/[facility], KYWBC (Bld) [#/Vol]11.1 10*3/uLCommunity Regional Medical Center, [place] WBC (Bld) [#/Vol]0.0 10*3/uL0.0 per 100 WBCCommunity Regional Medical Center, KSDiagnostic Cardiac Brick Molder Hand Procedureon 30-49-3005Stq, Mhpn Incoming Cardio Results From [facility]/ - 03/18/2020 2:16 PM EST Cardiac Interventional Report Demographics Patient SHER Phillips Date of Study 03/18/2020 Name Date of 1960 Gender Female Age 59 year(s) Race Room [id number]^MARTINEZ^HEMINDERMEET Height: 61 inch, 154.94 Number cm Corporate [id number] Weight: 170 pounds, 77.1 ID # kg Patient [id number] BSA: 1.76 m^2 BMI: 32.12 Acct # kg/m^2 MR # [id number] Performing Ema Miller Physician Referring # Physician [...] complication Indications: - Unstable angina - Previous [facility] - Previous stent placement - Coronary lesion [...] I.A. 2000 units. - Heparin I.V. bolus 38790 units. - Nitroglycerin I.C. 200 mcg. - Plavix P.O. 600 mg. Contrast Material: - Optiray 30498 ml Fluoroscopy Time: Diagnostic: 5:24 minutes. Total: [...] tobacco use, previous femoral procedure and prior [facility]. Admission Data Admission Date: 03/18/2020 Admission Status: Outpatient -The patient's anginal syndrome was assessed as CCS III according to the Sri [place]an clinical classification. Hemodynamics Condition: Baseline Room Air Estimated: 183.40Heart Rate: 95 bpm Pressure +-----+ + !Site !Pressure ! +-----+ + !AO !173/173 (116) ! +-----+ + !AO !170/65 (122) ! +-----+ + Shunts Oxygen Values O2 Auxolyyy431.08O2 Eaigzddodkf264.4 [employer]- [place], KYCardiac Interventional Report Demographics Patient SHER Phillips Date of Study 03/18/2020 Name Date of 1960 Gender Female Age 59 year(s) Race Room [id number]^MARTINEZ^HEMINDERMEETHeight: 61 inch, 154.94 Number cm Corporate [id number] Weight: 170 pounds, 77.1 ID # kg Patient [id number] BSA: 1.76 m^2 BMI: 32.12 Acct # kg/m^2 MR # [id number] Ema Pineda Physician Referring # Physician Assisting [...] complication Indications: - Unstable angina - Previous [facility] - Previous stent placement - Coronary lesion [...] Heparin I.A. 2000 units. -Heparin I.V. bolus 91375 units. - Nitroglycerin I.C. 200 mcg. - Plavix P.O. 600 mg. Contrast Material: - Optiray 25659 ml Fluoroscopy Time: Diagnostic: 5:24 minutes. Total: [...] tobacco use, previous femoral procedure and prior [facility]. Admission Data Admission Date: 03/18/2020 Admission Status: Outpatient -The patient's anginal syndrome was assessed as CCS III according to the [place]an clinical classification. Hemodynamics Condition: Baseline Room Air Estimated: 183.40Heart Rate: 95 bpm Pressure +-----+ + !Site !Pressure ! +-----+ + !AO !173/173 (116) ! +-----+ + !AO !170/65 (122) ! +-----+ + Shunts Oxygen Values O2 Dcllmtys785.08O2 Njmljbbsfwd527.4[facility] [place] Metabolic Panelon 38-91-1245NNM/1.73 sq M predicted among non-blacks MDRD (S/P/Bld) [Vol rate/Area][facility]UN[facility] on above:Average GFR for 60-69 years old: 85 mL/min/1.73sq m Chronic Kidney Disease: <60 mL/min/1.73sq m Kidney failure: <15 mL/min/1.73sq m eGFR calculated using average adult body mass. Additional eGFR calculator available at: http://www.Perpetuelle.com/multiple_crcl_2012.htm Stage 1: Some kidney damage normal GFR Stage 2: Mild kidney damage GFR 60-89 Stage 3: Moderate kidney damage GFR 30-59 Stage 4: Severe kidney damage GFR 15-29 Stage 5: Severe kidney damage GFR <15 ESRD - chronic treatment by dialysis or transplant POC Glucose Fingerstickon 69-62-4827Ftjurwt [Mass/Vol]106 mg/uSHgjz28 - 105 mg/dLCommunity Regional Medical Center, KYInterpretation and review of laboratory resultsAbnormal [place], KYGlucose [Mass/Vol]216 mg/sSAdyw08 - 105 mg/dLCommunity Regional Medical Center, KSInterpretation and review of laboratory resultsAbnormBellevue Hospital, KSTroponinon 58-40-6749Iycarixy I.cardiac [Mass/Vol]NOT REPORTEDBismarck, KYTroponin T.cardiac [Mass/Vol]NOT REPORTED<0.03 ng/mLCommunity Regional Medical Center, [place] Troponin, High Nqbhmyrkhhz31 ng/L0 - 14 ng/LMUnityPoint Health-Grinnell [facility] on above: High Sensitivity Troponin values cannot be compared with other Troponin methodologies. Patients with high levels of Biotin oral intake (i.e >5mg/day) may have falsely decreased Troponin levels. Samples collected within 8 hours of biotin intake may require additional information for diagnosis. Brain Natriuretic Peptideon 56-73-7969Yeowxbxzyaa peptide B (Bld) [Mass/Vol]1060 pg/mLHigh<300[facility] on above:Pro-BNP results cannot be compared to BNP results.Natriuretic peptide B (Bld) [Mass/Vol]Pro-BNP Reference Range:[facility] on above: Rule Out: <300 Monahan Zone: Age <50 300-450 Age 50-75 300-900 Age >75 300-1800 Usually represents mild to moderate HF but other cardiopulmonary causes cannot be ruled out. Rule In: Age <50 >450 Age 50-75 >900 Age >75 >1800 CBCon 86-56-6032Lrpveoueyhg distribution width (RBC) [Ratio]14.8 %High11.8 - 14.4 %[facility], KSHematocrit (Bld) [Volume fraction]43.9 %36.3 - 47.1 % [facility], KSHemoglobin (Bld) [Mass/Vol]13.9 g/dL11.9 - 15.1 g/dLCommunity Regional Medical Center, KSInterpretation and review of laboratory resultsAbnormalCommunity Regional Medical Center, KSMCH (RBC) [Entitic mass]28.4 pg25.2 - 33.5 pgCommunity Regional Medical Center, [place] MCHC (RBC) [Mass/Vol]31.7 g/dL28.4 - 34.8 g/dLCommunity Regional Medical Center, KSMCV (RBC) [Entitic vol]89.8 fL82.6 - 102.9 fLCommunity Regional Medical Center, KSPlatelet mean volume (Bld) [Entitic vol]9.5 fL8.1 - 13.5 fLCommunity Regional Medical Center, KSPlatelets (Bld) [#/Vol]300 10*3/uLCommunity Regional Medical Center, KYRBC (Bld) [#/Vol]4.89 10*6/uL3.95 - 5.11 m/[facility], KSWBC (Bld) [#/Vol]0.0 10*3/uL0.0 per 100 WBCCommunity Regional Medical Center, KSWBC (Bld) [#/Vol]11.6 10*3/uLHighCommunity Regional Medical Center, KSCardiac Catheterizationon 12-81-9473Ivlepfw Diagnostic Report Demographics Patient SHER Phillips Date of Study 03/17/2020 Name Dateof 1960 Gender Female Age 59 year(s) Race Room [id number]^SHARRI Height: 61 inch, 154.94 cm Number Corporate [id number] Weight: 178 pounds, 80.7 kg ID # Patient [id number] BSA: 1.8 m^2 BMI: 33.62 Acct # kg/m^2 MR # [id number] Performing Physician Zach Stephens Referring Physician # [...] Right coronary angiography. Contrast Material: - Isovue 80355 ml Fluoroscopy Time: Diagnostic: 2:01 minutes. Total: [...] assessed as CCS IV according to the [place]an clinical classification. Hemodynamics Condition: Baseline Room Air [...] + +---------+---------+---------+ +---------+ + Shunts Oxygen ValuesO2 Axzvqgoy237.04O[address]- [place], [place] Lonnie, Mhpn Incoming Cardio Results From [facility]/Ge - 03/17/2020 6:01 PM EST Cardiac Diagnostic Report Demographics Patient SHER Phillips Date of Study 03/17/2020 Name Date of 1960 Gender Female Age 59 year(s) Race Room [id number]^SHARRI Height: 61 inch, 154.94 cm Number Corporate [id number] Weight: 178 pounds, 80.7 kg ID # Patient [id number] BSA: 1.8 m^2 BMI: 33.62 Acct # kg/m^2 MR # [id number] Performing Physician Zach Stephens Referring Physician # [...] Right coronary angiography. Contrast Material: - Isovue 97128 ml Fluoroscopy Time: Diagnostic: 2:01 minutes. Total: [...] assessed as CCS IV according to the [place] clinical classification. Hemodynamics Condition: Baseline Room Air [...] +---------+---------+---------+ +---------+ + Shunts Oxygen Values O2 Fwsjjvpx114.04O2 Hsknembevrx156.12 [facility]- [place], KYComprehensive Metabolic Panelon 85-29-0277Prdjord [Mass/Vol] 3.8 g/dL3.5 - 5.2 g/dLMercy Health- [place], KYAlbumin/Globulin [Mass ratio]1.5 {ratio}[facility]- [place], KYALP [Catalytic activity/Vol]69 U/L35 - 104 U/LMercy Health- [place], KYALT [Catalytic activity/Vol]7 U/L5 - 33 U/LMercy Health- [place], [place] Anion gap [Moles/Vol]6 mmol/LLow9 - 17 mmol/LMercy Health- [place], KYAST [Catalytic activity/Vol]11 U/L<32[facility]- [place], KYBilirubin Ql (U)0.19 mg/dLLow0.3 - 1.2 mg/dLMercy Health- [place], KYBun/Cre Vlesz64Xrkyp Health- [place], KYCalcium [Mass/Vol] 8.9 mg/dL8.6 - 10.4 mg/dLMercy Health- [place], KYChloride [Moles/Vol]98 mmol/L98 - 107 mmol/LMercy Health- [place], KYCO2 [Moles/Vol]28 mmol/L20 - 31 mmol/LMercy Health- [place], KYCreatinine [Mass/Vol]1.4 mg/dLHigh0.5 - 0.9 mg/dLMercy Health- [place], KYGFR Ubskcery04 mL/minLow>60[facility]- [place], KYGFR Non- Fztsmqrq97 mL/minLow>60[facility]- [place], KYGlucose [Mass/Vol]174 mg/gKBqjy63 - 99 mg/dLMercy Health- [place], KYPotassium [Moles/Vol]4.1 mmol/L3.7 - 5.3 mmol/LMercy Health- [place], KYProtein [Mass/Vol]6.4 g/dL6.4 - 8.3 g/dLMercy Health- [place], [place] Sodium [Moles/Vol]132 mmol/OWpp923 - 144 mmol/LMercy Health- [place], KYUrea nitrogen [Mass/Vol]22 mg/dL8 - 23 mg/dLBismar[place], KYMetabolic Panelon 03-17-2020 GFR/1.73 sq M predicted among non-blacks MDRD (S/P/Bld) [Vol rate/Area][facility] KSComment on above:Stage 1: Some kidney damage normal [...] body mass. Additional eGFR calculator available at: http://www.Perpetuelle.com/multiple_crcl_2012.htm Otheron [id number] and review of laboratory resultsAbnormalCommunity Regional Medical CenterCARLOSAronoponifahad 07-62-7154Logaeosj I.cardiac [Mass/Vol]NOT REPORTED [facility] CenterCARLOSRenen T.cardiac [Mass/Vol]NOT REPORTED<0.03 ng/mLCommunity Regional Medical CenterCARLOSMaryam, High Sensitivity9 ng/L0 - 14 ng/LM[facility] CARLOS Comment on above: High Sensitivity Troponin values cannot be compared with other Troponin methodologies. Patients with high levels of Biotin oral intake (i.e >5mg/day) may have falsely decreased Troponin levels. Samples collected within 8 hours of biotin intake may require additional information for diagnosis. Troponin I.cardiac [Mass/Vol]NOT REPORTEDCommunity Regional Medical CenterCARLOSTahirnin T.cardiac [Mass/Vol]NOT REPORTED<0.03 ng/mLCommunity [facility] CARLOSTahirnin, High Sensitivity 12 ng/L0 - 14 ng/LMPoyntelle, KYComment on above: High Sensitivity Troponin values cannot be compared with other Troponin methodologies. Patients with high levels of Biotin oral intake (i.e >5mg/day) may have falsely decreased Troponin levels. Samples collected within 8 hours of biotin intake may require additional information for diagnosis. XR CHEST PORTABLEon [id number], Mhpn Incoming Radiant Results From [employer]/Pacs - 03/17/2020 1:33 PM EST EXAMINATION: ONE [...] previous infectious/inflammatory process. Calcific atherosclerotic disease aorta. [facility], KYEXAMINATION: ONE XRAY VIEW OF THE CHEST [...] is seen. No acute osseous abnormality is identified.[facility], KYNo definite acute pulmonary disease. Chronic appearing coarse interstitial densities predominate perihilar regions and lung bases, typical of sequela from smoking or other previous infectious/inflammatory process. Calcific atherosclerotic disease aorta.[facility] RepRegenOZARKS MEDICAL CENTER, KYBasic Metabolic Panelon [id number] gap [Moles/Vol]9 mmol/L9 - 17 mmol/LMSelect [facility], KYBun/Cre Gevum81ZfkjiCommunity Regional Medical Center, KYCalcium [Mass/Vol]9.1 mg/dL8.6 - 10.4 mg/dLCommunity [facility], KYChloride [Moles/Vol]97 mmol/LLow98 - 107 mmol/LMSelect [facility]ty [facility] [place], KYCO2 [Moles/Vol]25 mmol/L20 - 31 mmol/[facility] [place], KYCreatinine [Mass/Vol]0.96 mg/dLHigh0.5 - 0.9 mg/dL [facility], KYGFR >60>60 mL/minCommunity Regional Medical Center, KYGFR Non- Qptuxvco86 mL/minLow>60[facility], KYGlucose [Mass/Vol]82 mg/dL70 - 99 mg/dLCommunity [facility], KYInterpretation and review of laboratory resultsAbnoBellevue Hospital, KYPotassium [Moles/Vol]4.4 mmol/L3.7 - 5.3 mmol/LMAkron Children's Hospital [place], KYSodium [Moles/Vol]131 mmol/ATfd198 - 144 mmol/[facility], KYUrea nitrogen [Mass/Vol]12 mg/dL8 - 23 mg/dLCommunity [facility], [place] Brain Natriuretic Peptideon [id number] and review of laboratory resultsAbTrinity Health System, KYNatriuretic peptide B (Bld) [Mass/Vol]1385 pg/mLHigh<300[facility], KYComment on above:Pro-BNP results cannot be compared to BNP results.Natriuretic peptide B (Bld) [Mass/Vol]Pro-BNP Reference Range:[facility], KSComment on above: Rule Out: <300 Monahan Zone: Age <50 300-450 Age 50-75 300-900 Age >75 300-1800 Usually represents mild to moderate HF but other cardiopulmonary causes cannot be ruled out. Rule In: Age <50 >450 Age 50-75 >900 Age >75 >1800 CBC Auto Differentialon [id number] (Bld) [#/Vol]0.09 10*3/[facility], KYBasophils/100 WBC (Bld)1 %0 - 2 %[facility], KYDifferential TypeNOT REPORTED[facility], KYEosinophils (Bld) [#/Vol]0.41 10*3/[facility]- [place], KYEosinophils/100 WBC (Bld)5 %High1 - 4 %[facility], [place] Erythrocyte distribution width (RBC) [Ratio]14.8 %High11.8 - 14.4 %[facility], CARLOSHematocrit (Bld) [Volume fraction]42.3 %36.3 - 47.1 %[facility], [place] Hemoglobin (Bld) [Mass/Vol]13.5 g/dL11.9 - 15.1 g/dLCommunity [facility], CARLOSImmature granulocytes (Bld) [#/Vol]10*3/uLCommunity [facility] Center, CARLOSImmature granulocytes (Bld) [#/Vol]0 %0[facility], KSInterpretation and review of laboratory resultsAbnormalCommunity Regional Medical Center, CARLOSLymphocytes (Bld) [#/Vol]1.81 10*3/uLCommunity [facility], CARLOSLymphocytes/100 WBC (Bld)22 %Low24 - 43 %[facility], [facility] (RBC) [Entitic mass]28.1 pg25.2 - 33.5 pgCommunity [facility] Medical [facility], KSMCHC (RBC) [Mass/Vol]31.9 g/dL28.4 - 34.8 g/dLCommunity [facility] Medical [facility], CARLOSMCV (RBC) [Entitic vol] 87.9 fL82.6 - 102.9 fLCommunity Regional Medical Center, CARLOSMonocytes (Bld) [#/Vol]0.55 10*3/uL [facility], CARLOSMonocytes/100 WBC (Bld)7 %3 - 12 %[place], [place] Platelet mean volume (Bld) [Entitic vol]9.0 fL8.1 - 13.5 fLBismarck, [place] Platelets (Bld) [#/Vol]NOT REPORTEDCommunity [facility], CARLOSPlatelets (Bld) [#/Vol] 240 10*3/uLCommunity Regional Medical Center, CARLOSRBC (Bld) [#/Vol]4.81 10*6/uL3.95 - 5.11 m/uL [facility], KSRBC morphology finding Nom (Bld)NOT REPORTEDCommunity [facility], KSSegmented neutrophils/100 WBC (Bld)65 %36 - 65 %[facility] Absolute5.37[facility] (Bld) [#/Vol]0.0 10*3/uL0.0 per 100 WBCOhioHealth Dublin Methodist Hospital (Bld) [#/Vol]8.3 10*3/uLOhioHealth Dublin Methodist Hospital MorphologyNOT REPORTEDBismarck, KYMetabolic Panelon 04-17-5966HWC/1.73 sq M predicted among non-blacks MDRD (S/P/Bld) [Vol rate/Area][facility] on above:Average GFR for 60-69 years old: 85 mL/min/1.73sq m Chronic Kidney Disease: <60 mL/min/1.73sq m Kidney failure: <15 mL/min/1.73sq m eGFR calculated using average adult body mass. Additional eGFR calculator available at: http://www.Perpetuelle.com/multiple_crcl_2012.htm Stage 1: Some kidney damage normal GFR Stage 2: Mild kidney damage GFR 60-89 Stage 3: Moderate kidney damage GFR 30-59 Stage 4: Severe kidney damage GFR 15-29 Stage 5: Severe kidney damage GFR <15 ESRD - chronic treatment by dialysis or transplant Troponinon [id number] I.cardiac [Mass/Vol]NOT REPORTEDBismarck, KYTrsaint thomas hickman hospitalnin T.cardiac [Mass/Vol]NOT REPORTED<0.03 ng/mLBismarck, [place] Troponin, High Xfyxmylmgnn06 ng/L0 - 14 ng/LMUnityPoint Health-Grinnell [facility] on above: High Sensitivity Troponin values cannot be compared with other Troponin methodologies. Patients with high levels of Biotin oral intake (i.e >5mg/day) may have falsely decreased Troponin levels. Samples collected within 8 hours of biotin intake may require additional information for diagnosis. XR CHEST PORTABLEon 30-23-4655Pyo, kevin Incoming Radiant Results From [employer] - 03/13/2020 1:12 PM EST EXAMINATION: ONE [...] for congestive heart failure and mild edema. [facility] [place], KYEXAMINATION: ONE XRAY VIEW OF THE CHEST 03/13/2020 12:25 pm COMPARISON: October 08, 2019 HISTORY: ORDERING SYSTEM PROVIDED HISTORY: dyspnea TECHNOLOGIST PROVIDED HISTORY: dyspnea FINDINGS: Cardiac silhouette is enlarged. No pneumothorax. No pleural effusion. Pulmonary vascular congestion. Interstitial prominence within the lung bases. Overall, findings are slightly progressed since previous exam.[facility] [place], KYFindings as above concerning for congestive heart failure and mild edema.[facility]- [place], KYMicroscopic Urinalysison 07-60-7066Ngihxhoro, UANOT REPORTEDNoneMercy Health- [place], [place] Bacteria, UA2+AbnormalNoneMey Health- [place], KYCasts UANOT REPORTED/LPFMercy Health- [place], KYCrystals, UANOT REPORTEDNone /HPFMercy Health- [place], KYEpithelial Cells UA0 TO 2[facility]- [place], KYInterpretation and review of laboratory resultsAbnormalMercy Health- [place], KYMucus, UANOT REPORTEDNoneMer[facility]- [place], [place] Other Observations UANOT REPORTEDNOT REQ.[facility]- [place], KYRBC (U) [#/Vol]0 TO 2[facility]- [place], KYRenal Epithelial, UANOT REPORTED0 /HPFMercy Health- [place], [place] Trichomonas, UANOT REPORTEDNoneMer[facility]- [place], KYWBC, UA10 TO 20[facility]- [place], KYYeast, UANOT REPORTEDNoneMer[facility]- [place], [place]-[facility]- [place], [place] Urinalysis Reflex to Cultureon [id number] UrineNegativeNEGATIVEMercy Health- [place], KYColor, UAYELLOWYELLOWMercy Health- [place], KYGlucose, UrNegative NEGATIVEMercy Health- [place], KYInterpretation and review of laboratory results AbnormalMercy Health- [place], KYKetones Ql (U)NegativeNEGATIVEMercy Health- [place], [place] Leukocyte esterase Test strip Ql (U)MODERATEAbnormalNEGATIVEMercy Health- [place], [place] Nitrite, UrinePositiveAbnormalNEGATIVEMercy Health- [place], KYpH, UA6.0[facility]- [place], KYProtein (U) [Mass/Vol]NegativeNEGATIVEWilson Street Hospital- [place], KYSpecific [place], UA1.020[facility]- [place], KYTurbidity UACLEARCLEARWexner Medical Center [place], [place] Urinalysis CommentsNOT REPORTEDWilson Street Hospital- [place], KYUrine Hgb1+AbnormalNEGATIVE [facility], KYUrobilinogen, UrineNormalNormalWexner Medical Center [place], KYXR HIP 3- 4 VW W PELVIS BILATERALon 46-76-5802Ovndcokr right hip osteoarthritis. Suggestion of slight increased sclerosis and flattening of the femoral head could be on the basis of avascular necrosis. Mild left hip degenerative changes. Calcific densities along both greater trochanters are nonspecific and may be related to prior trauma or canbe seen with calcific tendinosis.[facility], Bridgette Win Incoming Radiant Results From [employer] - 02/12/2020 3:49 PM EST EXAMINATION: ONE [...] or can be seen with calcific tendinosis. [facility], CARLOSEXAMINATION: ONE X-RAY VIEW OF THE PELVIS [...] fragment adjacent to the greater trochanter is nonspecific.[facility], KSCBC Auto Differentialon [id number] (Bld) [#/Vol]0.11 10*3/[facility], KYBasophils/100 WBC (Bld)1 %0 - 2 %[facility], [place] Differential TypeNOT REPORTED[facility], KYEosinophils (Bld) [#/Vol]0.38 10*3/[facility], KYEosinophils/100 WBC (Bld)4 %1 - 4 %[facility], KSErythrocyte distribution width (RBC) [Ratio]14.6 %High11.8 - 14.4 %[facility], KSHematocrit (Bld) [Volume fraction]46.9 %36.3 - 47.1 %[facility], KSHemoglobin (Bld) [Mass/Vol]14.5 g/dL11.9 - 15.1 g/dLCommunity [facility], [place] Immature granulocytes (Bld) [#/Vol]0 %0[facility], KSImmature granulocytes (Bld) [#/Vol]0.03 10*3/[facility], KSInterpretation and review of laboratory resultsAbnormalCommunity [facility] Medical [facility], KYLymphocytes (Bld) [#/Vol]1.55 10*3/[facility], KYLymphocytes/100 WBC (Bld)15 %Low24 - 43 %[facility], KYMCH (RBC) [Entitic mass]28.4 pg25.2 - 33.5 pgCommunity [facility] Medical Center, [place] MCHC (RBC) [Mass/Vol]30.9 g/dL28.4 - 34.8 g/dLMer[facility] Health [facility]- [place], CARLOSMCV (RBC) [Entitic vol]91.8 fL82.6 - 102.9 fLPike Community Hospitalinocencio [facility]- [place], CARLOSMonocytes (Bld) [#/Vol] 0.55 10*3/uLPike Community Hospitalinocencio [facility]- [place], KYMonocytes/100 WBC (Bld)5 %3 - 12 %[facility]- [place], CARLOSPlatelet mean volume (Bld) [Entitic vol]9.6 fL8.1 - 13.[address]- [place], KYPlatelets (Bld) [#/Vol]NOT REPORTEDWilson [address] [facility]- [place], KYPlatelets (Bld) [#/Vol]278 10*3/uLPike Community Hospitalinocencio [facility]- [place], CARLOSRBC (Bld) [#/Vol]5.11 10*6/uL3.95 - 5.11 m/uLWilson [address] Hospital- [place], KYRBC morphology finding Nom (Bld)ANISOCYTOSIS PRESENT [facility]- [place], CARLOSSegmented neutrophils/100 WBC (Bld)75 %High36 - 65 %[facility]- [place], CARLOSSegs Absolute7.53[facility]- [place], KYWBC (Bld) [#/Vol]10.2 10*3/uL [facility]- [place], KYWBC (Bld) [#/Vol]0.0 10*3/uL0.[address]- [place], KYWBC MorphologyNOT REPORTEDWilson [address] [facility]- [place], CARLOSCardiacon [id number] [Mass/Vol]267 mg/dLHigh(<200)[facility] Work Phone: Comment on above:Note: Cholesterol Guidelines:<200 Kmvfhxwwy323-636 Borderline>240 UndesirableResponsible Observer: CCEV AUTOFILE ([id number])Comprehensive Metabolic Panelon [id number] [Mass/Vol]4.3 g/dL3.5 - 5.2 g/dLMercy Health Lor[facility]- [place], KYAlbumin/Globulin [Mass ratio]1.6 {ratio}[facility]la [facility]- [place], CARLOSALP [Catalytic activity/Vol]79 U/L35 - 104 U/LMsycamore medical center Health- [place], [place] ALT [Catalytic activity/Vol]7 U/L5 - 33 U/LMsycamore medical center Health- [place], KYAnion gap [Moles/Vol]16 mmol/L9 - 17 mmol/LMsycamore medical center Health- [place], KYAST [Catalytic activity/Vol]17 U/L<32[facility]- [place], KYBilirubin Ql (U)0.16 mg/dLLow0.3 - 1.2 mg/dLWilson [address] [facility]- [place], KYBun/Cre RatioNOT REPORTEDMerWashington [facility]- [place], KYCalcium [Mass/Vol]10.0 mg/dL8.6 - 10.4 mg/dLWilson [address] [facility]- [place], KYChloride [Moles/Vol]103 mmol/L98 - 107 mmol/LMsycamore medical center Health- [place], KYCO2 [Moles/Vol]21 mmol/L20 - 31 mmol/L [facility], KYCreatinine [Mass/Vol]1.32 mg/dLHigh0.5 - 0.9 mg/dL[address] [facility]- [place], KYGFR Suisoxgd92 mL/minLow>60[facility]- [place], KYGFR Non- Yaiyncss99 mL/minLow>60[facility]- [place], KYGFR/1.73 sq M predicted among non-blacks MDRD (S/P/Bld) [Vol rate/Area][facility], KYComment on above: Average GFR for 60-69 years old: 85 mL/min/1.73sq m Chronic Kidney Disease: <60 mL/min/1.73sq m Kidney failure: <15 mL/min/1.73sq m eGFR calculated using average adult body mass. Additional eGFR calculator available at: http://www.Sumavisos.Stukent/multiple_crcl_2012.htm GFR/1.73 sq M predicted among non-blacks MDRD (S/P/Bld) [Vol rate/Area]NOT REPORTEDWilson [address] [facility]- [place], KYGlucose [Mass/Vol]122 mg/iMJwiu10 - 99 mg/dLWexner Medical Center [place], KYPotassium [Moles/Vol]5.1 mmol/L3.7 - 5.3 mmol/LMsycamore medical center Health- [place], KYProtein [Mass/Vol]7.0 g/dL6.4 - 8.3 g/dLMerSumma Health [facility] Campus, KYSodium [Moles/Vol] 140 mmol/L135 - 144 mmol/LMercy [facility], KYUrea nitrogen [Mass/Vol]18 mg/dL8 - 23 mg/dLCommunity [facility], KYHematologyon 65-08-5075Pvfcfkame/100 WBC (Bld)1 % (0-2)[facility] Work [...] above:Note: Responsible Observer: XNV AUTOFILE ([id number])Lipid, Fastingon 03-55-6986Czbuikcnaoh [Mass/Vol]267 mg/dLHigh <200[facility], KSComment on above: Cholesterol Guidelines: <200 Desirable 200-240 Borderline >240 Undesirable Cholesterol in HDL [Mass/Vol]36 mg/dLLow>40MerSumma Health [facility], KSComment on above: HDL Guidelines: <40 Undesirable 40-59 Borderline >59 Desirable Cholesterol in LDL [Mass/Vol]172 mg/dLHigh0 - 130 mg/dLCommunity [facility], [place] Comment on above: LDL Guidelines: <100 Desirable 100-129 Near to/above Desirable 130-159 Borderline >159 Undesirable Direct (measured) LDL and calculated LDL are not interchangeable tests. Cholesterol in VLDL [Mass/Vol]NOT REPORTEDHigh1 - 30 mg/dLBismar[place], [place] Cholesterol.total/Cholesterol in HDL [Mass ratio]7.4 {ratio}High<5[facility], KSTriglyceride, Khnqsus634 mg/dLHigh<150MerSumma Health [facility], KYComment on above: Triglyceride Guidelines: <150 Desirable 150-199 Borderline 200-499 High >499 Very high Based on AHA Guidelines for fasting triglyceride, December 2011. Metabolic Panelon 56-10-1308Yqkplld [Mass/Vol]4.3 g/dL(3.5-5.2)[facility] Work Phone: Comment [...] on above:Note: Responsible Observer: CCEV AUTOFILE ([id number])Other 67-09-3061Hfcwprkbwelbgx and review of laboratory results [facility], [place](cont.)See NoteCardinal Cushing Hospital Work Phone: Comment on above:Note: Average GFR for 60-69 years old:85 mL/min/1.73sq mChronic Kidney Disease:<60 mL/min/1.73sqmKidney failure:<15 mL/min/1.73sq meGFR calculated using average adult body mass. Additional eGFR calculatoravailable at:http://www.Perpetuelle.com/multiple_crcl_2011.htmResponsible Observer: CCEV AU TOFILE ([id number])Abs. Basophil0.11 k/uL(0.00-0.20)Cardinal [...] Work Phone: Comment on above:Note: HDL Guidelines:<40 Ukbolfqfeyo61-31 Borderline>59 DesirableResponsible Observer: CCEV AUTOFILE ([id number])Cholesterol,ANW925 mg/dLHigh(0-130)[facility] Work Phone: Comment on above:Note: LDL Guidelines:<100 Muqhjymrh878-075 Near to/above Qvmpznoei217-024 Borderline>159 UndesirableDirect (measured) LDL and calculated LDL [...] Comment on above:Note: Responsible Observer: XNV AUTOFILE ([id number])MCHC (RBC) [Mass/Vol]30.9 g/dL(28.4-34.8)[facility] Work Phone: Comment on above:Note: Responsible Observer: XNV AUTOFILE ([id number])Performing Lab:see noteHealth [facility] Work Phone: Comment on above:Note: [employer] [address] [facility] [address] Platelet mean volume (Bld) [Entitic vol] 9.6 fL(8.1-13.5)[facility] Work Phone: Comment on above:Note: Responsible Observer: XNV AUTOFILE ([id number])Reported PhysiciansSee NoteCardinal Cushing Hospital Work Phone: Comment on above:Note: Reported Physicians:Ordering: Eric CalderóneeAttending: Stephane, AimeeReferring: Cotton, AimeeSegmented neutrophils/100 WBC (Bld)75 %High(36-65)[facility] Work Phone: Comment on above:Note: Responsible Observer: XNV AUTOFILE ([id number])Staging:NOT REPORTEDCardinal Cushing Hospital Work Phone: Thyroid Stim. Horm.2.41 mIU/L(0.30-5.00)[facility] Work Phone: Comment on above:Note: Responsible Observer: SWATI NASH ([id number])Triglyceride,Vnwrcir909 mg/dLHigh(<150)[facility] Work Phone: Comment on above:Note: Triglyceride Guidelines:<150 Gvrixiqwh339-307 Ijfyatjeie021-834 High>499 Very highBasedon AHA Guidelines for fasting triglyceride, December 2011.Responsible Observer: CCEV AUTOFILE ([id number])WBC MorphologyNOT REPORTEDHealth [facility] Work Phone: TSH with Reflexon [id number] Qn2.41 m[IU]/[facility], KYLUMBAR SPINE 4 OR 5 Son [id number] SPINE 4 OR 5 [facility] Department of Radiology [address] [place] [id number] Patient Name: JONATAN OLIVAREZ : 1960 Sex: F Age: Race: White Pt. Location: 83 Patient Status: Ordered Date: 12/24/2019 10:40:00 AM Completed Date: 12/24/2019 10:41 AM Requesting Provider: ZIYAD BENITEZ Attending Provider: Report Copy To: Signs & Symptoms: M48.061 Spinal stenosis, lumbar region without neurogenic chapito I10 History: Long Eddy Comments: , , , Ordering Provider - ZIYAD BENITEZ MD , Exam: LUMBAR SPINE 4 OR 5 [facility] LUMBAR SPINE 4 OR 5 S 12/24/2019 [...] Electronically signed: Dionicio Bhakta M.D.. Transcribed by: [id number], User Resident: Electronically Signed by: DIONICIO BHAKTA @ 12/24/2019 08:37 [facility] SystemComment on above:Order Comment: , , , Ordering Provider - ZIYAD BENITEZ MD , Microscopic Urinalysison [id number], UANOT REPORTEDNoneMercy Health- [place], [place] Bacteria, UAMODERATEAbnormalNoneMercy [...] [place]-[facility]- [place], KYUrinalysis Reflex to Cultureon [id number] UrineNegative NEGATIVEMercy Health- [place], KYColor, UADARK YELLOWAbnormalYELLOWMercy Health- [place], KYGlucose, UrNegativeNEGATIVEMercy Health- [place], KYInterpretation and review of laboratory resultsAbnormalMercy Health- [place], KYKetones Ql (U)NegativeNEGATIVE [facility]- [place], KYLeukocyte esterase Test strip Ql (U)MODERATEAbnormalNEGATIVE [facility]- [place], KYNitrite, UrineNegativeNEGATIVEMercy Health- [place], KYpH, UA7.[address] [facility]- [place], KYProtein (U) [Mass/Vol]1+AbnormalNEGATIVEMercy Health- [place], [place] Specific [place], UA1.025[facility]- [place], KYTurbidity UATURBIDAbnormalCLEAR [facility]- [place], KYUrinalysis CommentsNOT REPORTEDMercy Health- [place], KYUrine Hgb SMALLAbnormalNEGATIVEMercy Health- [place], KYUrobilinogen, UrineNormalNormalMercy Health- [place], KYHematologyon 06-66-1278Bchuzpuung (Bld) [Mass/Vol]SMALLAbnormal (NEG)[facility] Work Phone: Comment on above:Note: Responsible Observer: ZI [id number])Metabolic Panelon 99-97-2351Mcdlooxlg.direct [Mass/Vol]Negative (NEG)[facility] Work Phone: Comment on above:Note: Responsible Observer: ZI Eagle2369)Glucose [Mass/Vol]Negative(NEG)[facility] Work Phone: Comment on above:Note: Responsible Observer: ZI Eagle988Shfeali)Protein [Mass/Vol]1+Abnormal(NEG)Health [facility] Work Phone: Comment on above:Note: Responsible Observer: ZI Eagle2829)Otheron 11-16-2019-----See NoteHealth [facility] Work Phone: Comment on above:Note: Responsible Observer: ZI [id number])Acetoacetic Acid,UrNegative(NEG)[facility] Work Phone: Comment on above:Note: Responsible Observer: ZI VARGAS ([id number])CommentNOT REPORTEDHealth [facility] Work Phone: Cult,UrineSee NoteDunlap Memorial Hospital [facility] Work Phone: Comment on above:Note: Specimen Description .URINESpecial Requests NOT REPORTEDCulture CITROBACTER FREUNDII >[id number] CFU/MLReport Status FINAL 11/18/2019SUSCEPTIBILITYOrganism CITROBACTER FREUNDIIMethod MICAmikacinNOT REPORTEDAztreonam <=1 SUSCEPTIBLECefazolin NOT REPORTEDCefepime NOT REPORTEDCeftriaxone <=1 SUSCEPTIBLECiprofloxacin <=0.25 SUSCEPTIBLEErtapenem NOT REPORTEDGentamicin <=1 SUSCEPTIBLEMeropenem NOT REPORTEDNitrofurantoin <=16 SUSCEPTIBLETigecycline NOT REPORTEDTobramycin <=1 SUSCEPTIBLETrimethoprim/Sulfa <=20 SUSCEPTIBLEPiperacillin/Tazobactam <=4 SUSCEPTIBLEResponsibleObserver: ZI VARGAS ([id number])Epithelial, RenalNOT REPORTED /HPF(0)[facility] Work Phone: Leuckocyte EsteraseMODERATEAbnormal(NEG)[facility] Work Phone: Comment on above:Note: Responsible Observer: ZI VARGAS ([id number])Mucus StrandsNOT REPORTED(NONE)[facility] Work Phone: Nitrite,UrNegative(NEG)[facility] Work Phone: Comment on above:Note: Responsible Observer: ZI VARGAS ([id number])Other ObservationsNOT REPORTED(NREQ)Cardinal [facility] Work Phone: Performing Lab:[facility]Card[facility]: Comment on above:Note: [facility] ncyclo [address] [facility] [address] PH,Ur7.0(5.0-8.0)[facility] Work Phone: Comment on above:Note: Responsible Observer: ZI VARGAS ([id number])RBC (U) [#/Vol]5 TO 10 /HPF(0-2)[facility] Work Phone: Comment on above:Note: Responsible Observer: ZI VARGAS ([id number])Reported PhysiciansSee NoteCardinal [facility] Work Phone: Comment on above:Note: Reported Physicians:Ordering: Stephane AimeeAttending: Cotton, AimeeReferring: Cotton, AimeeSpec. [place],Ur 1.025(1.005-1.030)[facility] Work Phone: Comment on above:Note: Responsible Observer: ZI VARGAS ([id number])TrichomonasNOT REPORTED(NONE)[facility] Work Phone: TurbidityTURBIDAbnormal(CLEAR)[facility] Work Phone: Comment on above:Note: Responsible Observer: ZI VARGAS ([id number])Urobilinogen,UrNormal(NORM)[facility] Work Phone: Comment on above:Note: Responsible Observer: ZI VARGAS ([id number])Urinalysison 94-06-1250Eocggnuiw sediment LM Ql (Urine sed)NOT REPORTED(NONE)[facility] Work Phone: Bacteria identified Cx Nom (U)See NoteCardinal [facility] Work Phone: Comment on above:Note: Specimen Description .URINESpecial Requests NOT REPORTEDCulture CITROBACTER FREUNDII >[id number] CFU/MLReport Status FINAL 11/18/2019SUSCEPTIBILITYOrganism CITROBACTER FREUNDIIMethod MICAmikacinNOT REPORTEDAztreonam <=1 SUSCEPTIBLECefazolin NOT REPORTEDCefepime NOT REPORTEDCeftriaxone <=1 SUSCEPTIBLECiprofloxacin <=0.25 SUSCEPTIBLEErtapenem NOT REPORTEDGentamicin <=1 SUSCEPTIBLEMeropenem NOT REPORTEDNitrofurantoin <=16 SUSCEPTIBLETigecycline NOT REPORTEDTobramycin <=1 SUSCEPTIBLETrimethoprim/Sulfa <=20 SUSCEPTIBLEPiperacillin/Tazobactam <=4 SUSCEPTIBLEResponsibleObserver: ZI VARGAS ([id number])Bacteria LM.HPF (Urine sed) [#/Area]MODERATEAbnormal(NONE)[facility] Work Phone: Comment on above:Note: Responsible Observer: ZI VARGAS ([id number])Casts LM.LPF (Urine sed) [#/Area]NOT REPORTED /LPF(0-2)[facility] Work Phone: Color (U)DARK YELLOWAbnormal(YEL)[facility] Work Phone: Comment on above:Note: Responsible Observer: ZI VARGAS ([id number])Crystals LM Nom (Urine sed)NOT REPORTED /HPF(NONE)[facility] Work Phone: Epithelial cells LM.HPF (Urine sed) [#/Area]0 TO 2 /HPF(0-5)[facility] Work Phone: Comment on above:Note: Responsible Observer: ZI VARGAS ([id number])WBC (U) [#/Vol]TOO NUMEROUS TO COUNT /HPF(0-5)[facility] Work Phone: Comment on above:Note: Responsible Observer: ZI VARGAS ([phone])Yeast LM Ql (Urine sed)NOT REPORTED(NONE)[facility] Work Phone: ammoniaon [phone] (P) [Mass/Vol]26 umol/L11 - 51 umol/LMercy [facility], KYCT Head WO Contraston [id number]: CT OF THE HEAD WITHOUT CONTRAST 10/08/2019 [...] abnormality of the visualized skull or soft tissues.[facility], KYNo acute intracranial abnormality. Chronic small vessel ischemic disease.[facility], Bridgette Win Incoming Radiant Results From Al[employer]ize/[employer]Hub - 10/08/2019 12:43 AM EDT EXAMINATION: CT [...] intracranial abnormality. Chronic small vessel ischemic disease. [facility], KYComprehensive Metabolic Panelon 14-08-9101Ihruupr [Mass/Vol] 3.6 g/dL3.5 - 5.2 g/dLCommunity [facility], KYAlbumin/Globulin [Mass ratio]1.2 {ratio}[facility], KYALP [Catalytic activity/Vol]81 U/L35 - 104 U/LMAkron Children's Hospital [place], KYALT [Catalytic activity/Vol]11 U/L5 - 33 U/LMAkron Children's Hospital [place], [place] Anion gap [Moles/Vol]15 mmol/L9 - 17 mmol/LMlicking memorial hospitaly [facility]- [place], KYAST [Catalytic activity/Vol]15 U/L<32[facility]- [place], KYBilirubin Ql (U)<0.10Low0.3 - 1.2 mg/dL[address] [facility]- [place], KYBun/Cre Pgfyk98VcdauWexner Medical Center [place], KYCalcium [Mass/Vol] 9.1 mg/dL8.6 - 10.4 mg/dLCommunity [facility], KYChloride [Moles/Vol]99 mmol/L98 - 107 mmol/LMAkron Children's Hospital [place], KYCO2 [Moles/Vol]23 mmol/L20 - 31 mmol/LMCincinnati VA Medical Center- [place], KYCreatinine [Mass/Vol]1.18 mg/dLHigh0.5 - 0.9 mg/dLCommunity [facility], KYGFR Cywpadto02 mL/minLow>60[facility] [place], KYGFR Non- Nloibcyi21 mL/minLow>60[facility], KYGlucose [Mass/Vol]113 mg/hIUiuo92 - 99 mg/dLCommunity [facility], KYInterpretation and review of laboratory results AbnormalCommunity [facility] Medical Center, KYPotassium [Moles/Vol]4.4 mmol/L3.7 - 5.3 mmol/LMAkron Children's Hospital [place], KYProtein [Mass/Vol]6.5 g/dL6.4 - 8.3 g/dLCommunity [facility], [place] Sodium [Moles/Vol]137 mmol/L135 - 144 mmol/LMSelect Medical Specialty Hospital [facility] [place], KYUrea nitrogen [Mass/Vol]19 mg/dL8 - 23 mg/dLCommunity [facility], KYLipaseon [id number] [Catalytic activity/Vol]20 U/L13 - 60 U/LMSelect [facility] Specialty [facility] [place], KYMetabolic Panelon 27-06-2626HFK/1.73 sq M predicted among non-blacks MDRD (S/P/Bld) [Vol rate/Area][facility], KYComment on above:Stage 1: Some kidney damage [...] body mass. Additional eGFR calculator available at: http://www.Sumavisos.Stukent/multiple_crcl_2012.htm SPECIMEN REJECTIONon [id number] TestCP,TROPKettering Health Behavioral Medical Center KSReason for RejectionUnable to perform testing: Specimen hemolyzed.[place], [place] Specimen source Nom (Unsp spec).BLOODBismarck, [place]-NOT REPORTEDCommunity Regional Medical CenterAdriananinon [id number] I.cardiac [Mass/Vol]NOT REPORTED [facility] CenterAdriananin T.cardiac [Mass/Vol]NOT REPORTED<0.03 ng/mLCommunity Regional Medical CenterAdriananin, High Xlhmkawguwp99 ng/L0 - 14 ng/LMPoyntelle, [place] Comment on above: High Sensitivity Troponin values cannot be compared with other Troponin methodologies. Patients with high levels of Biotin oral intake (i.e >5mg/day) may have falsely decreased Troponin levels. Samples collected within 8 hours of biotin intake may require additional information for diagnosis. Interpretation and review of laboratory resultsAbnormalBismarck, [place] Troponin I.cardiac [Mass/Vol]NOT REPORTED[facility] KSTahirnin T.cardiac [Mass/Vol]NOT REPORTED<0.03 ng/mLCommunity [facility] KSTahirnin, High Sensitivity 15 ng/LHigh0 - 14 ng/LMPoyntelle, KYComment on above: High Sensitivity Troponin values cannot be compared with other Troponin methodologies. Patients with high levels of Biotin oral intake (i.e >5mg/day) may have falsely decreased Troponin levels. Samples collected within 8 hours of biotin intake may require additional information for diagnosis. XR CHEST STANDARD (2 VW)on [id number] bibasilar airspace opacities could represent underlying edema or developing atypical infection. Please correlate exam findings.[facility] CenterAudelia, [place] Incoming Radiant Results From Alumn[employer]/Adv[employer]Hub - 10/08/2019 1:08 AM EDT EXAMINATION: TWO [...] developing atypical infection. Please correlate exam findings. [facility], KYEXAMINATION: TWO XRAY VIEWS OF THE CHEST 10/08/2019 12:17 am COMPARISON: CTA chest 10/06/2019 HISTORY: ORDERING SYSTEM PROVIDED HISTORY: shortness of breath TECHNOLOGIST PROVIDED HISTORY: shortness of breath FINDINGS: The cardiomediastinal silhouette is mildly enlarged with mild prominence of the perihilar regions due to combination of prominent pulmonary arterial tree perihilar lymph nodes. Mild hazy bibasilar opacities. No pleural effusion or pneumothorax is present.[facility], KYCBC Auto Differentialon 10-07-2019 Basophils (Bld) [#/Vol]0.09 10*3/uLCommunity [facility], KYBasophils/100 WBC (Bld)1 %0 - 2 %[facility], CARLOSDifferential TypeNOT REPORTEDCommunity [facility], [place] Eosinophils (Bld) [#/Vol]0.92 10*3/uLMarion Hospital, KYEosinophils/100 WBC (Bld)8 %High1 - 4 %[facility], KSErythrocyte distribution width (RBC) [Ratio]17.7 %High11.8 - 14.4 %[facility], CARLOSHematocrit (Bld) [Volume fraction]35.5 %Low36.3 - 47.1 %[facility], CARLOSHemoglobin (Bld) [Mass/Vol] 11.3 g/dLLow11.9 - 15.1 g/dLCommunity [facility], KYImmature granulocytes (Bld) [#/Vol]0.06 10*3/[facility], KYImmature granulocytes (Bld) [#/Vol]1 % Stse3JnmffCommunity [facility] Medical Center, CARLOSInterpretation and review of laboratory resultsAbnormal [facility], KYLymphocytes (Bld) [#/Vol]1.93 10*3/uLCommunity [facility], [place] Lymphocytes/100 WBC (Bld)17 %Low24 - 43 %[facility]- [place], KYH (RBC) [Entitic mass]28.0 pg25.2 - 33.[address]- [place], KYMCHC (RBC) [Mass/Vol]31.8 g/dL28.4 - 34.8 g/dLWilson [address] [facility]- [place], KYV (RBC) [Entitic vol]88.1 fL82.6 - 102.[address] [facility]- [place], KYMonocytes (Bld) [#/Vol]0.82 10*3/uL[address] [facility]- [place], [place] Monocytes/100 WBC (Bld)7 %3 - 12 %[facility]- [place], KYPlatelet mean volume (Bld) [Entitic vol]9.6 fL8.1 - 13.[address]- [place], KYPlatelets (Bld) [#/Vol]318 10*3/uL[address] [facility]- [place], KYPlatelets (Bld) [#/Vol]NOT REPORTEDWilson [facility]- [place], KSRBC (Bld) [#/Vol]4.03 10*6/uL3.95 - 5.11 m/uLWilson [address] [facility]- [place], KSRBC morphology finding Nom (Bld)NOT REPORTEDWilson [facility]- [place], KSSegmented neutrophils/100 WBC (Bld)66 %High36 - 65 %[facility]- [place], KYSegs Absolute7.[address] [facility]- [place], KYWBC (Bld) [#/Vol]0.0 10*3/uL0.[address]- [place], KYWBC (Bld) [#/Vol]11.3 10*3/uL[address] [facility]- [place], KYWBC MorphologyNOT REPORTED [facility]- [place], [facility]ic Metabolic Panelon 33-00-3205Dvcys gap [Moles/Vol]15 mmol/L9 - 17 mmol/LMsycamore medical center Health- [place], KYBun/Cre Ldssz71Wzncp Health- [place], [place] Calcium [Mass/Vol]8.8 mg/dL8.6 - 10.4 mg/dLWilson [address] [facility]- [place], KYChloride [Moles/Vol]99 mmol/L98 - 107 mmol/LMCincinnati VA Medical Center- [place], KYCO2 [Moles/Vol]24 mmol/L 20 - 31 mmol/LMercy [facility]- [place], KYCreatinine [Mass/Vol]0.95 mg/dLHigh0.5 - 0.9 mg/dLMercy Health- [place], KYGFR >60>60 mL/minMercy Health- [place], [place] GFR Non->60>60 mL/minMercy Health- [place], KYGlucose [Mass/Vol]163 mg/wLAmdo71 - 99 mg/dLMercy Health- [place], KYPotassium [Moles/Vol]4.5 mmol/L3.7 - 5.3 mmol/LMercy [facility]- [place], KYSodium [Moles/Vol]138 mmol/L135 - 144 mmol/LMercy [facility]- [place], KYUrea nitrogen [Mass/Vol]11 mg/dL8 - 23 mg/dLMercy Health- [place], [place] Blood Gas, Arterialon 48-51-3477Yxfek TestPASSMercy Health- [place], KYaPTT Coag (Bld) [Time]37 sMercy [facility]- [place], KYCarboxyhemoglobin6.6 %High0 - 5 %[facility]- [place], KYComment on above: Reference Range: Non-Smokers 0-2% Average Smoker 2-4% Heavy Smoker <10% GQF2VLU REPORTEDMercy Health- [place], KYHCO3, Thnzxfco32.5 mmol/L22 - 26 mmol/LMercy [facility]- [place], KYInterpretation and review of laboratory resultsAbnormalMercy Health- [place], KYMethemoglobin0.4 %0 - 1.9 %[facility]- [place], KYModeNOT REPORTED [facility] [place], KYNegative Base Excess, Art0.2 mmol/L0 - 2 mmol/LMercy [facility]- [place], KYNOTIFICATIONNOT REPORTEDMercy Health- [place], KYNOTIFICATION TIMENOT REPORTED [facility]- [place], KYO2 Device/Flow/%CannulaMercy Health- [place], KYOxygen saturation in Blood89.4 %Low95 - 98 %[facility]- [place], KYOxyhemoglobinNOT GIIUBWSY96 - 98 %[facility]- [place], KYpCO2, Art, Temp AdjNOT REPORTEDMercy Health- [place], KYpCO2, Gijadpon87.0HighMercy Health- [place], KYPeep/CpapNOT REPORTEDMercy [facility]- [place], KYpH, Art, Temp AdjNOT REPORTEDMer[facility]- [place], KYpH, Arterial7.362[facility]- [place], KYpO2, Art, Temp AdjNOT REPORTEDMercy [facility]- [place], KYpO2, Ipqcyiwo62.8LowMercy Health- [place], KYPositive Base Excess, ArtNOT REPORTED0 - 2 mmol/LMercy [facility]- [place], KYPSVNOT REPORTEDMer Health- [place], KYPt. PositionSEMI-FOWLERSMer Health- [place], KYSample SiteRight Brachial ArteryMer Health- [place], KYSet RateNOT REPORTEDMer Health- [place], KYText for RespiratoryNOT REPORTEDMercy Health- [place], KYTotal HbNOT LAMZAERV36 - 16 g/dlMercy Health- [place], KYTotal RateNOT REPORTEDMer Health- [place], KYVTNOT REPORTEDMercy Health [facility]- [place], KYBrain Natriuretic Peptideon 10-06-2019 Natriuretic peptide B (Bld) [Mass/Vol]869 pg/mLHigh<300[facility] RepRegen- [place], [place] Comment on above:Pro-BNP results cannot be compared to BNP results.Natriuretic peptide B (Bld) [Mass/Vol]Pro-BNP Reference Range:[facility] RepRegen- [place], KYComment on above: Rule Out: <300 [place] Zone: Age <50 300-450 Age 50-75 300-900 Age >75 300-1800 Usually represents mild to moderate HF but other cardiopulmonary causes cannot be ruled out. Rule In: Age <50 >450 Age 50-75 >900 Age >75 >1800 CBC Auto Differentialon [id number] (Bld) [#/Vol]0.05 10*3/uLMer Health- [place], KYBasophils/100 WBC (Bld)1 %0 - 2 %[facility]- [place], KYDifferential TypeNOT REPORTEDMercy Health [facility]- [place], KYEosinophils (Bld) [#/Vol]0.61 10*3/uLHigh [facility]- [place], KYEosinophils/100 WBC (Bld)6 %High1 - 4 %[facility]- [place], [place] Erythrocyte distribution width (RBC) [Ratio]17.5 %High11.8 - 14.4 %[facility]- [place], KYHematocrit (Bld) [Volume fraction]34.1 %Low36.3 - 47.1 %[facility]- [place], KYHemoglobin (Bld) [Mass/Vol]11.0 g/dLLow11.9 - 15.1 g/dLWilson [address] [facility]- [place], [place] Immature granulocytes (Bld) [#/Vol]0.06 10*3/uL[address] [facility]- [place], KYImmature granulocytes (Bld) [#/Vol]1 %Fkxt7WlmqtWilson Street Hospital- [place], KYInterpretation and review of laboratory resultsAbnormalWilson Street Hospital- [place], KYLymphocytes (Bld) [#/Vol]1.48 10*3/[facility]- [place], KYLymphocytes/100 WBC (Bld)13 %Low24 - 43 %[facility]- [place], KYMCH (RBC) [Entitic mass]28.1 pg25.2 - 33.[address]- [place], [place] MCHC (RBC) [Mass/Vol]32.3 g/dL28.4 - 34.8 g/dLWilson [address] [facility]- [place], KYMCV (RBC) [Entitic vol]87.0 fL82.6 - 102.[address]- [place], KYMonocytes (Bld) [#/Vol] 0.67 10*3/[facility]- [place], KYMonocytes/100 WBC (Bld)6 %3 - 12 %[facility]- [place], CARLOSPlatelet mean volume (Bld) [Entitic vol]9.6 fL8.1 - 13.[address]- [place], KYPlatelets (Bld) [#/Vol]251 10*3/[facility]- [place], KYPlatelets (Bld) [#/Vol]NOT REPORTEDWilson [facility]- [place], KYRBC (Bld) [#/Vol]3.92 10*6/uLLow3.95 - 5.11 m/[facility]- [place], KYRBC morphology finding Nom (Bld)NOT REPORTEDWilson [facility]- [place], KYSegmented neutrophils/100 WBC (Bld)73 %High36 - 65 %[facility]- [place], KYSegs Absolute8.24HighWilson Street Hospital- [place], KYWBC (Bld) [#/Vol]0.0 10*3/uL0.0 per 100 WBCBismarck, KYWBC (Bld) [#/Vol]11.1 10*3/uLBismarck, [place] WBC MorphologyNOT REPORTEDCommunity [facility] Medical CenterCARLOSCOVID-19on 51-11-5212FGSC-CoV-2 [place], KYSARS-CoV-2, PCRBismarck, KYSARS-CoV-2, RapidNot DetectedNot DetectedCommunity Regional Medical Center KSComment on above: Rapid NAAT: The specimen is [...] management decisions. Fact sheet for Healthcare Providers: https://www.fda.gov/media/681670/download Fact sheet for Patients: https://www.fda.gov/media/637959/download Methodology: Isothermal Nucleic Acid Amplification Source.NASOPHARYNGEAL SWABBismarck, KYCT Chest Pulmonary Embolism W Contraston . No evidence for acute pulmonary embolism. 2. Bilateral ground-glass opacities are noted, nonspecific in appearance. This may represent multifocal infection (including viral pneumonia), inflammatory process or less likely edema. 3. Calcified atheromatous plaque and coronary calcification. 4. Bilateral adrenal adenomas.[place], KYEXAMINATION: CTA OF THE CHEST 10/06/2019 12:50 [...] Tissues/Bones: No acute bone or soft tissue abnormality.[employer], [place], Bridget[place] Incoming Radiant Results From Alumnize/AdviseHub - 10/06/2019 1:13 PM EDT EXAMINATION: CTA [...] and coronary calcification. 4. Bilateral adrenal adenomas. [facility] CARLOSD-Dimer, Quantitativeon [id number]-Dimer, Quant1.77High [facility] CARLOSRishabh on above: When combined with a [...] distal DVT. Interpretation and review of laboratory resultsAbnormBellevue Hospital, CARLOS Lactate, Sepsison 32-38-0346Jiguko Acid, Sepsis1.0 mmol/L0.5 - 1.9 mmol/[place], KYLactic Acid, Sepsis, Whole BloodNOT REPORTED0.5 - 1.9 mmol/[place], KYMetabolic Panelon 45-53-4907IUQ/1.73 sq M predicted among non- blacks MDRD (S/P/Bld) [Vol rate/Area][facility] CenterCARLOSKhanhdai on above: Average GFR for 60-69 years old: 85 mL/min/1.73sq m Chronic Kidney Disease: <60 mL/min/1.73sq m Kidney failure: <15 mL/min/1.73sq m eGFR calculated using average adult body mass. Additional eGFR calculator available at: http://www.Sumavisos.Stukent/multiple_crcl_2012.htm Stage 1: Some kidney damage normal GFR Stage 2: Mild kidney damage GFR 60-89 Stage 3: Moderate kidney damage GFR 30-59 Stage 4: Severe kidney damage GFR 15-29 Stage 5: Severe kidney damage GFR <15 ESRD - chronic treatment by dialysis or transplant Otheron 76-88-6830Dtruoqngxphtrg and review of laboratory resultsAbnormalMercy Health- [place], KYTroponinon [id number] I.cardiac [Mass/Vol]NOT REPORTED [facility]- [place], KYTroponin T.cardiac [Mass/Vol]NOT REPORTED<0.03 ng/mLMercy Health- [place], KYTroponin, High Jwraazptacf93 ng/L0 - 14 ng/LMercy Health- [place], [place] Comment on above: High Sensitivity Troponin values cannot be compared with other Troponin methodologies. Patients with high levels of Biotin oral intake (i.e >5mg/day) may have falsely decreased Troponin levels. Samples collected within 8 hours of biotin intake may require additional information for diagnosis. Urinalysis with Micro[employer]op[employer] [id number], UANOT REPORTEDNoneMercy Health- [place], KYBacteria, UA4+AbnormalNoneMercy Health- [...] Epithelial, UANOT REPORTED0 /HPFMer Health- [place], KYSpecific [place], UA1.020 MercBallad Health- [place], KYTrichomonas, UANOT REPORTEDNoneMeohio valley [facility]- [place], KYTurbidity UACLOUDYAbnormalCLEARWilson Street Hospital- [place], KYUrinalysis CommentsNOT REPORTEDMercy Health [facility]- [place], KYUrine HgbNegativeNEGATIVEMer Health- [place], KYUrobilinogen, Urine NormalNormalMercy Health [facility]- [place], KYWBC, UA20 TO 50Mer Health- [place], KYYeast, UANOT REPORTEDNoneMeohio valley surgical hospital [facility]- [place], [place]-[facility]- [place], KYXR CHEST 1 VWon 10-06-2019 Lonnie, Mhpn Incoming Radiant Results From Alumnize/Accedos - 10/06/2019 10:21 AM EDT EXAMINATION: ONE [...] symptoms. 2. Enlargement of the pulmonary arteries. [facility], KYEXAMINATION: ONE XRAY VIEW OF THE CHEST [...] Central line and endotracheal tube no longer present.[facility], KY1. Multifocal patchy opacifications concerning for multifocal pneumonia. Recommend repeat chest x-ray after cessation of symptoms. 2. Enlargement of the pulmonary arteries.[facility], KYCOVID-19on 02-53-1203WKPW-CoV-2MSelect Medical Specialty [facility] [place], [place] SARS-CoV-2, PCRNot DetectedNot [facility], CARLOSComment on above: (NOTE) The [employer] RealTime SARS-CoV-2 assay is a real-time (rt) reverse transcriptase (RT) polymerase chain reaction (PCR) test intended for the [employer] system. The SARS-CoV-2 primer and probe sets are designed to detect RNA from SARS-CoV-2 in nasopharyngeal (JAVA SOFTWARE ENGINEER) and oropharyngeal (OP) swabs from patients with [...] The above 1 analytes were performed by [address] [place] [address] SARS-CoV-2, [facility], Wil.NASOPHARYNGEAL SWABCommunity Regional Medical Center, KYBasic Metabolic Panelon [id number] gap [Moles/Vol]13 mmol/L9 - 17 mmol/L [facility], KYBun/Cre RatioNOT REPORTEDCommunity [facility], KYCalcium [Mass/Vol]9.0 mg/dL8.6 - 10.4 mg/dLCommunity [facility], KYChloride [Moles/Vol]104 mmol/L98 - 107 mmol/LMercy Health- [place], KYCO2 [Moles/Vol]24 mmol/L20 - 31 mmol/L [facility], KYCreatinine [Mass/Vol]0.82 mg/dL0.5 - 0.9 mg/dLCommunity [facility], KYGFR >60>60 mL/minWexner Medical Center [place], KYGFR Non->60>60 mL/minCommunity Regional Medical Center, KYGFR/1.73 sq M predicted among non- blacks MDRD (S/P/Bld) [Vol rate/Area]NOT REPORTEDCommunity [facility], KYGFR/1.73 sq M predicted among non-blacks MDRD (S/P/Bld) [Vol rate/Area][facility], [place] Comment on above:Average GFR for 60-69 years old: 85 mL/min/1.73sq m Chronic Kidney Disease: <60 mL/min/1.73sq m Kidney failure: <15 mL/min/1.73sq m eGFR calculated using average adult body mass. Additional eGFR calculator available at: http://www.Perpetuelle.com/multiple_crcl_2011.htm Glucose [Mass/Vol]113 mg/kZErqd84 - 99 mg/dLCommunity [facility] Medical Center, KYInterpretation and review of laboratory resultsAbnormalCommunity Regional Medical Center, KYPotassium [Moles/Vol]4.8 mmol/L3.7 - 5.3 mmol/LMSelect [facility] Specialty [facility] [place], KYSodium [Moles/Vol]141 mmol/L135 - 144 mmol/LMSelect Medical Specialty Hospital - [place], KYUrea nitrogen [Mass/Vol]15 mg/dL8 - 23 mg/dLCommunity [facility] Medical Center, KYCBCon 47-08-9205Yjnfemfuvxm distribution width (RBC) [Ratio]18.5 %High11.8 - 14.4 %[facility], KYHematocrit (Bld) [Volume fraction]43.0 %36.3 - 47.1 %[facility], KYHemoglobin (Bld) [Mass/Vol]13.4 g/dL11.9 - 15.1 g/dLCommunity [facility] Medical Center, KYInterpretation and review of laboratory resultsAbnormBellevue Hospital, KYMCH (RBC) [Entitic mass]27.4 pg25.2 - 33.5 pg [facility] HospitalHC (RBC) [Mass/Vol]31.2 g/dL28.4 - 34.8 g/dLLancaster Municipal HospitalV (RBC) [Entitic vol]87.9 fL82.6 - 102.9 fLBismarck, KYPlatelet mean volume (Bld) [Entitic vol]9.3 fL8.1 - 13.5 fLCommunity Regional Medical Center, KSPlatelets (Bld) [#/Vol]262 10*3/uLCommunity [facility] Center, KSRBC (Bld) [#/Vol]4.89 10*6/uL3.95 - 5.11 m/[facility], KSWBC (Bld) [#/Vol]12.0 10*3/uLMarion Hospital, KSWBC (Bld) [#/Vol]0.0 10*3/uL0.0 per 100 WBCBismarck, KYEcho 2D w doppler w color completeon [id number] [facility] Transthoracic Echocardiography Report (TTE) Patient Name SHER Date of Study 09/03/2019 JONATAN C Date of 1960 Gender Female Age 59 year(s) Race Room Number Height: 61 inch, 154.94 cm Corporate ID [id number] Weight: 187 pounds, 84.8 kg # Patient Acct [id number] BSA: 1.84 m^2 BMI: 35.33 # kg/m^2 MR # [id number] Blood Donor Recruiter Supervisor Fátima Adame Interpreting Physician Josef Brooks Fellow Referring Nurse Practitioner Interpreting Referring Physician Josef Brooks Fellow Type of Study TTE procedure:2D Echocardiogram, M-Mode, Doppler, Color Doppler. Procedure Date Date: 09/03/2019 Start: 09:34 AM Study Location: [facility] Indications:Coronary Atherosclerosis. History / Tech. Comments: [...] seen. Signature Vee ctronically signed by Fátima Adame(Blood Donor Recruiter Supervisor) on 09/03/2019 10:00 AM 05:15 PM FINDINGS [...] Lateral Wall E' velocity:0.10 m/s Lateral Wall E/E':8.4[facility], Audelia, Bridgette Incoming Cardio Results From [facility]/[employer] - 09/03/2019 5:15 PM EDT [facility] Transthoracic Echocardiography Report (TTE) Patient Name SHER Date of Study 09/03/2019 JONATAN C Date of 1960 Gender Female Age 59 year(s) Race Room Number Height: 61 inch, 154.94 cm Corporate ID [id number] Weight: 187 pounds, 84.8 kg # Patient Acct [id number] BSA: 1.84 m^2 BMI: 35.33 # kg/m^2 MR # [id number] Blood Donor Recruiter Supervisor Fátima Adame Interpreting Physician Josef Brooks Fellow Referring Nurse Practitioner Interpreting Referring Physician Josef Brooks Type of Study TTE procedure:2D Echocardiogram, M-Mode, Doppler, Color Doppler. Procedure Date Date: 09/03/2019 Start: 09:34 AM Study Location: [facility] Indications:Coronary Atherosclerosis. History / Tech. Comments: [...] Lateral Wall E' velocity:0.10 m/s Lateral Wall E/E':8.4[facility], [facility] Metabolic Panel w/ Reflex to MGon [id number] gap [Moles/Vol]14 mmol/L9 - 17 mmol/[facility], [place] Bun/Cre RatioNOT REPORTEDCommunity [facility], KYCalcium [Mass/Vol]9.3 mg/dL8.6 - 10.4 mg/dLCommunity [facility] Medical [facility], KYChloride [Moles/Vol]99 mmol/L98 - 107 mmol/[facility], KYCO2 [Moles/Vol]27 mmol/L20 - 31 mmol/[facility], [place] Creatinine [Mass/Vol]0.37 mg/dLLow0.5 - 0.9 mg/dLCommunity [facility], KYGFR >60>60 mL/minCommunity Regional Medical Center, KYGFR Non->60>60 mL/min [facility], KYGFR/1.73 sq M predicted among non-blacks MDRD (S/P/Bld) [Vol rate/Area][facility], KSComment on above:Average GFR for 50-59 years old: 93 mL/min/1.73sq m Chronic Kidney Disease: <60 mL/min/1.73sq m Kidney failure: <15 mL/min/1.73sq m eGFR calculated using average adult body mass. Additional eGFR calculator available at: http://www.Perpetuelle.com/multiple_crcl_2012.htm GFR/1.73 sq M predicted among non-blacks MDRD (S/P/Bld) [Vol rate/Area]NOT REPORTEDCommunity [facility], KSGlucose [Mass/Vol]144 mg/fCXwgz55 - 99 mg/dLCommunity Regional Medical Center, KSInterpretation and review of laboratory resultsAbnoBellevue Hospital, KYPotassium [Moles/Vol]3.2 mmol/LLow3.7 - 5.3 mmol/LMSelect [facility], KYSodium [Moles/Vol]140 mmol/L135 - 144 mmol/LMSelect [facility]ty [facility], KYUrea nitrogen [Mass/Vol]20 mg/dL6 - 20 mg/dLCommunity Regional Medical Center, KYMagnesiumon [id number] [Mass/Vol]2.0 mg/dL1.6 - 2.6 mg/dLCommunity [facility], KSPOC Glucose Fingerstickon 69-76-1728Ruvmhig [Mass/Vol]233 mg/xGPbsf46 - 105 mg/dL [facility], KSInterpretation and review of laboratory resultsAbnoBellevue Hospital, KYGlucose [Mass/Vol]175 mg/wPSkdr68 - 105 mg/dLCommunity Regional Medical Center, [place] Interpretation and review of laboratory resultsAbnoBellevue Hospital, KSCBC auto differentialon [id number] (Bld) [#/Vol]0.00 10*3/[facility], KYBasophils/100 WBC (Bld)0 %0 - 2 %[facility], KSDifferential TypeNOT REPORTED[facility], KYEosinophils (Bld) [#/Vol]0.00 10*3/[facility], KSEosinophils/100 WBC (Bld)0 %Low1 - 4 %[facility], KSErythrocyte distribution width (RBC) [Ratio]15.3 %High11.8 - 14.4 %[facility], [place] Hematocrit (Bld) [Volume fraction]52.0 %High36.3 - 47.1 %[facility], [place] Hemoglobin (Bld) [Mass/Vol]16.0 g/pZOyfr66.9 - 15.1 g/dL[facility]- [place], [place] Immature granulocytes (Bld) [#/Vol]0.00 10*3/uLWilson [address] [facility]- [place], CARLOSImmature granulocytes (Bld) [#/Vol]0 %0[facility]- [place], KYInterpretation and review of laboratory resultsAbnormalCommunity Regional Medical Center, KYLymphocytes (Bld) [#/Vol]1.92 10*3/uL[address] [facility]- [place], KYLymphocytes/100 WBC (Bld)17 %Low24 - 44 %[facility]- [place], KYMCH (RBC) [Entitic mass]27.0 pg25.2 - 33.[address]- [place], [place] MCHC (RBC) [Mass/Vol]30.8 g/dL28.4 - 34.8 g/dLWilson [address] [facility]- [place], CARLOSMCV (RBC) [Entitic vol]87.7 fL82.6 - 102.9 fLCommunity Regional Medical Center, CARLOSMonocytes (Bld) [#/Vol] 1.02 10*3/uLAvita Health System- [place], KYMonocytes/100 WBC (Bld)9 %High1 - 7 %[facility], CARLOSMorphology Emmett (Bld) [Interp]ANISOCYTOSIS PRESENTWilson Street Hospital- [place], CARLOSPlatelet mean volume (Bld) [Entitic vol]9.6 fL8.1 - 13.[address]- [place], KYPlatelets (Bld) [#/Vol]NOT REPORTEDCommunity [facility], KYPlatelets (Bld) [#/Vol] 283 10*3/uL[address] [facility]- [place], KYRBC (Bld) [#/Vol]5.93 10*6/uLHigh3.95 - 5.11 m/uL [facility]- [place], KYRBC morphology finding Nom (Bld)NOT REPORTED[facility], CARLOSSegmented neutrophils/100 WBC (Bld)74 %High36 - 66 %[facility], [place] Segs Absolute8.36HighWilson Street Hospital- [place], KYWBC (Bld) [#/Vol]11.3 10*3/uLWilson [address] [facility]- [place], KYWBC (Bld) [#/Vol]0.0 10*3/uL0.0 per 100 WBCCommunity Regional Medical Center, KYWBC MorphologyNOT REPORTEDCommunity [facility], KYCulture, Blood 2on [id number] NO GROWTH 6 DAYSCommunity [facility], KSSpecial RequestsNO INFO GIVENCommunity Regional Medical Center, KYSpecimen Description.BLOODCommunity [facility], KSPO Glucose Fingerstickon 35-98-1931Uxduvig [Mass/Vol]149 mg/yQQwis07 - 105 mg/dLCommunity [facility] Medical Center, [place] Interpretation and review of laboratory resultsAbnoBellevue Hospital, [place] Glucose [Mass/Vol]235 mg/yVUkgu70 - 105 mg/dLCommunity [facility], KSInterpretation and review of laboratory resultsAbnoBellevue Hospital, KSGlucose [Mass/Vol] 196 mg/dZMgpc48 - 105 mg/dLCommunity [facility], KYInterpretation and review of laboratory resultsAbnoBellevue Hospital, KYGlucose [Mass/Vol]143 mg/iVKnuy06 - 105 mg/dLCommunity Regional Medical [facility], KYInterpretation and review of laboratory results AbnormalCommunity Regional Medical Center, KSBasic Metabolic Panel w/ Reflex to MGon 07-23-2019 Anion gap [Moles/Vol]13 mmol/L9 - 17 mmol/LMSelect [facility]ty [facility], KYBun/Cre RatioNOT REPORTED[facility], KYCalcium [Mass/Vol]8.9 mg/dL8.6 - 10.4 mg/dLCommunity [facility], KYChloride [Moles/Vol]101 mmol/L98 - 107 mmol/LMSelect [facility]ty [facility] [place], [place] CO2 [Moles/Vol]25 mmol/L20 - 31 mmol/LMSelect [facility] Specialty [facility], KYCreatinine [Mass/Vol] 0.35 mg/dLLow0.5 - 0.9 mg/dL[facility], KYGFR >60>60 mL/minCommunity [facility] Medical Center, KYGFR Non->60>60 mL/minCommunity [facility] Medical [facility], KYGFR/1.73 sq M predicted among non-blacks MDRD (S/P/Bld) [Vol rate/Area][facility], KYComment on above:Average GFR for 50-59 years old: 93 mL/min/1.73sq m Chronic Kidney Disease: <60 mL/min/1.73sq m Kidney failure: <15 mL/min/1.73sq m eGFR calculated using average adult body mass. Additional eGFR calculator available at: http://www.Perpetuelle.com/multiple_crcl_2012.htm GFR/1.73 sq M predicted among non-blacks MDRD (S/P/Bld) [Vol rate/Area]NOT REPORTED[facility], KYGlucose [Mass/Vol]144 mg/jMJrqo08 - 99 mg/dLCommunity [facility] Medical Center, KYInterpretation and review of laboratory resultsAbnoBellevue Hospital, KYPotassium [Moles/Vol]4.1 mmol/L3.7 - 5.3 mmol/LMSelect [facility], KYSodium [Moles/Vol]139 mmol/L135 - 144 mmol/[facility], KYUrea nitrogen [Mass/Vol]30 mg/dLHigh6 - 20 mg/dLCommunity [facility], KYPOC Glucose Fingerstickon 87-88-6037Tinwjne [Mass/Vol]230 mg/oRAily39 - 105 mg/dLCommunity [facility], [place] Interpretation and review of laboratory resultsAbnoBellevue Hospital, [place] Glucose [Mass/Vol]200 mg/rYOaqr79 - 105 mg/dLCommunity [facility], KYInterpretation and review of laboratory resultsAbnoBellevue Hospital, KYGlucose [Mass/Vol] 184 mg/sZGpww88 - 105 mg/dLCommunity [facility], KSInterpretation and review of laboratory resultsAbnoBellevue Hospital, KSBasic Metabolic Panel w/ Reflex to MGon [id number] gap [Moles/Vol]15 mmol/L9 - 17 mmol/LMSelect [facility] Specialty [facility] [place], [place] Bun/Cre RatioNOT REPORTED[facility], KYCalcium [Mass/Vol]8.7 mg/dL8.6 - 10.4 mg/dLCommunity [facility], KYChloride [Moles/Vol]103 mmol/L98 - 107 mmol/LMSelect [facility]ty [facility], KYCO2 [Moles/Vol]23 mmol/L20 - 31 mmol/LMCincinnati [facility]- [place], [place] Creatinine [Mass/Vol]0.47 mg/dLLow0.5 - 0.9 mg/dL[facility], KYGFR >60>60 mL/minCommunity Regional Medical Center, KYGFR Non->60>60 mL/min [facility], KYGFR/1.73 sq M predicted among non-blacks MDRD (S/P/Bld) [Vol rate/Area]NOT REPORTED[facility], KYGFR/1.73 sq M predicted among non- blacks MDRD (S/P/Bld) [Vol rate/Area][facility], KYComment on above: Average GFR for 50-59 years old: 93 mL/min/1.73sq m Chronic Kidney Disease: <60 mL/min/1.73sq m Kidney failure: <15 mL/min/1.73sq m eGFR calculated using average adult body mass. Additional eGFR calculator available at: http://www.Perpetuelle.com/multiple_crcl_2012.htm Glucose [Mass/Vol]150 mg/fOXltq78 - 99 mg/dLCommunity [facility], KYInterpretation and review of laboratory resultsAbnormalCommunity Regional Medical Center, KYPotassium [Moles/Vol]4.1 mmol/L3.7 - 5.3 mmol/[facility], KYSodium [Moles/Vol]141 mmol/L135 - 144 mmol/[facility], KYUrea nitrogen [Mass/Vol]29 mg/dLHigh6 - 20 mg/dLCommunity [facility], KYCBC auto differentialon [id number] (Bld) [#/Vol]10*3/[facility], KYBasophils/100 WBC (Bld)0 %0 - 2 %[facility], KYDifferential TypeNOT REPORTED[facility], KYEosinophils (Bld) [#/Vol]10*3/uLCommunity Regional Medical [facility], KYEosinophils/100 WBC (Bld)0 %Low1 - 4 %[facility], KSErythrocyte distribution width (RBC) [Ratio]15.9 %High11.8 - 14.4 %[facility], KSHematocrit (Bld) [Volume fraction]48.9 %High36.3 - 47.1 % [facility], KSHemoglobin (Bld) [Mass/Vol]14.9 g/dL11.9 - 15.1 g/dLCommunity [facility], KSImmature granulocytes (Bld) [#/Vol]1 %Nnik9SsbnwCommunity Regional Medical Center, [place] Immature granulocytes (Bld) [#/Vol]0.06 10*3/uLWilson [address] [facility]- [place], [place] Interpretation and review of laboratory resultsAbnormalCommunity Regional Medical Center, [place] Lymphocytes (Bld) [#/Vol]1.16 10*3/[facility] [place], KSLymphocytes/100 WBC (Bld)10 %Low24 - 43 %[facility], KSMCH (RBC) [Entitic mass]27.8 pg25.2 - 33.5 pgCommunity Regional Medical Center, KSMCHC (RBC) [Mass/Vol]30.5 g/dL28.4 - 34.8 g/dLCommunity [facility], KSMCV (RBC) [Entitic vol]91.2 fL82.6 - 102.9 fLCommunity Regional Medical Center, [place] Monocytes (Bld) [#/Vol]1.44 10*3/uLHighCommunity Regional Medical Center, KSMonocytes/100 WBC (Bld)12 %3 - 12 %[facility], KSPlatelet mean volume (Bld) [Entitic vol]9.7 fL8.1 - 13.5 fLCommunity Regional Medical Center, KYPlatelets (Bld) [#/Vol]257 10*3/[facility]- [place], KYPlatelets (Bld) [#/Vol]NOT REPORTED[facility], KSRBC (Bld) [#/Vol]5.36 10*6/uLHigh3.95 - 5.11 m/uLCommunity [facility] Medical [facility], KSRBC morphology finding Nom (Bld)ANISOCYTOSIS PRESENTCommunity Regional Medical Center, KSSegmented neutrophils/100 WBC (Bld)78 %High36 - 65 %[facility], KYSegs Absolute9.44 HighCommunity Regional Medical Center, KSWBC (Bld) [#/Vol]12.1 10*3/[facility], KSWBC (Bld) [#/Vol]0.0 10*3/uL0.0 per 100 WBCCommunity Regional Medical Center, KYWBC MorphologyNOT REPORTED[facility], KYMYCOPLASMA PNEUMONIAE ANTIBODY, IGMon 07-22-2019 Mycoplasma pneumo IgM0.85<0.91[facility], KYComment on above: Reference Range: <=0.90 Negative 0.91-1.09 Equivocal >=1.10 Positive POC Glucose Fingerstickon [id number] [Mass/Vol]244 mg/kFUjqp48 - 105 mg/dLCommunity [facility], KYInterpretation and review of laboratory resultsAbnoal [facility], KYGlucose [Mass/Vol]154 mg/vSTmhy90 - 105 mg/dLCommunity [facility], KYInterpretation and review of laboratory resultsAbnoBellevue Hospital, KYGlucose [Mass/Vol]209 mg/gEZwyy86 - 105 mg/dLCommunity [facility], [place] Interpretation and review of laboratory resultsAbTrinity Health System, [place] Glucose [Mass/Vol]158 mg/pOKphx57 - 105 mg/dLCommunity [facility], KYInterpretation and review of laboratory resultsAbnoBellevue Hospital, KYBasic Metabolic Panel w/ Reflex to MGon [id number] gap [Moles/Vol]12 mmol/L9 - 17 mmol/L [facility], KYBun/Cre RatioNOT REPORTED[facility], KYCalcium [Mass/Vol]8.8 mg/dL8.6 - 10.4 mg/dLCommunity [facility], KYChloride [Moles/Vol]97 mmol/LLow98 - 107 mmol/LMSelect [facility], KYCO2 [Moles/Vol]29 mmol/L20 - 31 mmol/LMSelect [facility]ty [facility] [place], KYCreatinine [Mass/Vol]0.5 mg/dL0.5 - 0.9 mg/dL[facility]- [place], KYGFR >60>60 mL/minWilson [address] [facility]- [place], KYGFR Non- >60>60 mL/min[address] [facility]- [place], KYGFR/1.73 sq M predicted among non-blacks MDRD (S/P/Bld) [Vol rate/Area]NOT REPORTED[facility]- [place], [place] GFR/1.73 sq M predicted among non-blacks MDRD (S/P/Bld) [Vol rate/Area][facility], KYComment on above:Average GFR for 50-59 years old: 93 mL/min/1.73sq m Chronic Kidney Disease: <60 mL/min/1.73sq m Kidney failure: <15 mL/min/1.73sq m eGFR calculated using average adult body mass. Additional eGFR calculator available at: http://www.Perpetuelle.com/multiple_crcl_2011.htm Glucose [Mass/Vol]169 mg/pENbge21 - 99 mg/dLCommunity [facility] Medical Center, KYInterpretation and review of laboratory resultsAbnormalWilson Street Hospital- [place], KYPotassium [Moles/Vol]3.6 mmol/LLow3.7 - 5.3 mmol/LMCincinnati VA Medical [facility]- [place], KYSodium [Moles/Vol] 138 mmol/L135 - 144 mmol/LMCincinnati VA Medical Center- [place], KYUrea nitrogen [Mass/Vol]33 mg/dL High6 - 20 mg/dLCommunity [facility] Medical [facility], KYCB auto differentialon [id number] (Bld) [#/Vol]0.00 10*3/uLWilson [address] [facility]- [place], KYBasophils/100 WBC (Bld)0 %0 - 2 % [facility], KYDifferential TypeNOT REPORTEDWilson [facility]- [place], KYEosinophils (Bld) [#/Vol]0.00 10*3/uLWilson [facility]- [place], KYEosinophils/100 WBC (Bld)0 %Low1 - 4 %[facility]- [place], KYErythrocyte distribution width (RBC) [Ratio]15.7 %High 11.8 - 14.4 %[facility]- [place], KYHematocrit (Bld) [Volume fraction]45.3 %36.3 - 47.1 %[place], KYHemoglobin (Bld) [Mass/Vol]14.0 g/dL11.9 - 15.1 g/dL [facility], KSImmature granulocytes (Bld) [#/Vol]0 %0[facility], [place] Immature granulocytes (Bld) [#/Vol]0.00 10*3/uLCommunity [facility], [place] Interpretation and review of laboratory resultsAbnormalCommunity Regional Medical Center, [place] Lymphocytes (Bld) [#/Vol]0.44 10*3/uLLowCommunity Regional Medical Center, KSLymphocytes/100 WBC (Bld)4 %Low24 - 44 %[facility], KSMCH (RBC) [Entitic mass]27.0 pg25.2 - 33.5 pgBismarck, KYMCHC (RBC) [Mass/Vol]30.9 g/dL28.4 - 34.8 g/dLBismarck, KYMCV (RBC) [Entitic vol]87.3 fL82.6 - 102.9 fLBismarck, [place] Monocytes (Bld) [#/Vol]0.22 10*3/[facility], KSMonocytes/100 WBC (Bld)2 %1 - 7 %[place], KYMorphology Emmett (Bld) [Interp]ANISOCYTOSIS PRESENT [place], KYPlatelet mean volume (Bld) [Entitic vol]9.4 fL8.1 - 13.5 fL [facility], KSPlatelets (Bld) [#/Vol]NOT REPORTEDBismarck, [place] Platelets (Bld) [#/Vol]270 10*3/uLCommunity [facility] Medical [facility], KSRBC (Bld) [#/Vol]5.19 10*6/uLHigh3.95 - 5.11 m/[facility], KSRBC morphology finding Nom (Bld) NOT REPORTEDCommunity [facility], KSSegmented neutrophils/100 WBC (Bld)94 %High36 - 66 %[facility], KSSegs Qtqdcqop54.24HighCommunity Regional Medical Center, KSWBC (Bld) [#/Vol]10.9 10*3/uLCommunity [facility], [facility]OSPITALBC (Bld) [#/Vol]0.0 10*3/uL0.0 per 100 WBCCommunity Regional Medical Center, KSWBC MorphologyNOT REPORTEDCommunity [facility], KSEKG 12 Lead on 10-41-7170Nmoskl Lmqv78BYQLtpoySelect Medical Specialty [facility], KSP Pzhd88zzpynltRhgvaMansfield Hospital, KSP-R Stmmryhd720 [facility], KYQ-T Zbzpiyxf690 [facility], KYQRS Agcqlosc41 [facility], KSQTc Calculation (Bazett)429 [facility], KSR Lonaconing-82degrMansfield Hospital, KYT Mzhv08jppvwdqMvucpMansfield Hospital, KSVentricular Hsaw78JHFOetfySelect Medical Specialty [facility], KYEdi, Mhpn Incoming Ekg Results From [facility] - 07/21/2019 1:17 PM EDT Normal sinus rhythm Biatrial enlargement Indeterminate axis Pulmonary disease pattern Incomplete right bundle branch block Cannot rule out Inferior infarct , age undetermined Abnormal ECG No previous ECGs availableCommunity Regional Medical Center, KYNormal sinus rhythm Biatrial enlargement Indeterminate axis Pulmonary disease pattern Incomplete right bundle branch block Cannot rule out Inferior infarct , age undetermined Abnormal ECG No previousECGs availableCommunity Regional Medical Center, KSHEMOGLOBIN AND HEMATOCRIT, BLOODon 12-69-6468Ksghdvpyno (Bld) [Volume fraction]47.3 %High36.3 - 47.1 %[place], KYHemoglobin (Bld) [Mass/Vol]14.6 g/dL11.9 - 15.1 g/dLCommunity [facility] Center, [place] Interpretation and review of laboratory resultsAbnormalCommunity Regional Medical Center, KSMRSA DNA Probe, Nasalon [id number], DNA, NasalNEGATIVE: MRSA DNA not detected by nucleic acid amplification.NEGATIVE: MRSA DNA not detected by nucleic acid amplificatiBismarck, KYComment on above: Results should be used as an adjunct to nosocomial control efforts to identify patients needing enhanced precautions. The test is not intended to identify patients with staphylococcal infections. Results should not be used to guide or monitor treatment for MRSA infections. Specimen Description.NASAL SWABCommunity Regional Medical Center, KSPOC Glucose Fingerstickon [id number] [Mass/Vol]191 mg/rJUikz76 - 105 mg/dLCommunity [facility] Medical Center, [place] Interpretation and review of laboratory resultsAbnoBellevue Hospital, [place] Glucose [Mass/Vol]152 mg/vOMvzm16 - 105 mg/dLCommunity Regional Medical Center, KYInterpretation and review of laboratory resultsAbnoBellevue Hospital, KYGlucose [Mass/Vol] 207 mg/uBPwkl22 - 105 mg/dLCommunity [facility], KYInterpretation and review of laboratory resultsAbnormBellevue Hospital, KYGlucose [Mass/Vol]160 mg/hGNwso12 - 105 mg/dLCommunity [facility] Medical [facility], KYInterpretation and review of laboratory results AbnormalCommunity Regional Medical Center, KSBasic Metabolic Panel w/ Reflex to MGon 07-20-2019 Anion gap [Moles/Vol]12 mmol/L9 - 17 mmol/LMSelect Medical Specialty [facility], KYBun/Cre RatioNOT REPORTED[facility], KYCalcium [Mass/Vol]8.4 mg/dLLow8.6 - 10.4 mg/dLCommunity [facility], KYChloride [Moles/Vol]98 mmol/L98 - 107 mmol/[facility], [place] CO2 [Moles/Vol]26 mmol/L20 - 31 mmol/[facility], KYCreatinine [Mass/Vol] 0.67 mg/dL0.5 - 0.9 mg/dLCommunity [facility], KYGFR >60>60 mL/min [facility], KYGFR Non->60>60 mL/minCommunity Regional Medical Center, [place] GFR/1.73 sq M predicted among non-blacks MDRD (S/P/Bld) [Vol rate/Area]NOT REPORTEDCommunity [facility], KYGFR/1.73 sq M predicted among non-blacks MDRD (S/P/Bld) [Vol rate/Area][facility], KYComment on above:Average GFR for 50-59 years old: 93 mL/min/1.73sq m Chronic Kidney Disease: <60 mL/min/1.73sq m Kidney failure: <15 mL/min/1.73sq m eGFR calculated using average adult body mass. Additional eGFR calculator available at: http://www.Perpetuelle.com/multiple_crcl_2011.htm Glucose [Mass/Vol]190 mg/wVSwci88 - 99 mg/dLWilson [address] [facility]- [place], KYPotassium [Moles/Vol]3.9 mmol/L3.7 - 5.3 mmol/LMCincinnati VA Medical Center- [place], KYSodium [Moles/Vol]136 mmol/L135 - 144 mmol/LMCincinnati VA Medical Center- [place], KYUrea nitrogen [Mass/Vol]30 mg/dLHigh6 - 20 mg/dLWexner Medical Center [place], KYCBC auto differentialon [id number] (Bld) [#/Vol]0.00 10*3/uLWilson [address] [facility]- [place], KYBasophils/100 WBC (Bld)0 %0 - 2 %[facility], KYDifferential TypeNOT REPORTEDWexner Medical Center [place], KYEosinophils (Bld) [#/Vol]0.00 10*3/[facility] [place], KYEosinophils/100 WBC (Bld)0 %Low1 - 4 % [facility]- [place], KYErythrocyte distribution width (RBC) [Ratio]15.5 %High11.8 - 14.4 %[facility] [place], KYHematocrit (Bld) [Volume fraction]44.6 %36.3 - 47.1 % [facility], KYHemoglobin (Bld) [Mass/Vol]13.8 g/dL11.9 - 15.1 g/dLWexner Medical Center [place], KYImmature granulocytes (Bld) [#/Vol]0.00 10*3/[facility]- [place], KYImmature granulocytes (Bld) [#/Vol]0 %0[facility]- [place], KYInterpretation and review of laboratory resultsAbnormalWexner Medical Center [place], KYLymphocytes (Bld) [#/Vol]0.44 10*3/uLLowWilson [address] Hospital- [place], KYLymphocytes/100 WBC (Bld)4 %Low24 - 44 %[facility]- [place], [facility] (RBC) [Entitic mass]26.9 pg25.2 - 33.[address]- [place], [facility] (RBC) [Mass/Vol]30.9 g/dL28.4 - 34.8 g/dLWilson [address] [facility]- [place], [facility] (RBC) [Entitic vol]86.9 fL82.6 - 102.[address]- [place], KYMonocytes (Bld) [#/Vol]0.11 10*3/uL[address] [facility]- [place], KSMonocytes/100 WBC (Bld)1 %1 - 7 %[facility]- [place], KSMorphology Emmett (Bld) [Interp]ANISOCYTOSIS PRESENTWilson Street Hospital- [place], KSPlatelet mean volume (Bld) [Entitic vol]9.4 fL8.1 - 13.[address]- [place], KSPlatelets (Bld) [#/Vol]NOT REPORTED[facility]- [place], KSPlatelets (Bld) [#/Vol] 298 10*3/uL[address] [facility]- [place], KSRBC (Bld) [#/Vol]5.13 10*6/uLHigh3.95 - 5.11 m/uL [facility]- [place], KSRBC morphology finding Nom (Bld)NOT REPORTEDWilson [facility]- [place], KSSegmented neutrophils/100 WBC (Bld)95 %High36 - 66 %[facility]- [place], [place] Segs Dfehyfll50.35HighWilson [address] [facility]- [place], KSWBC (Bld) [#/Vol]10.9 10*3/uL[address] [facility]- [place], KSWBC (Bld) [#/Vol]0.0 10*3/uL0.0 per 100 WBCMercy Health Lor[facility]- [place], KSWBC MorphologyNOT REPORTEDWilson Street [facility]- [place], KSEK 12 Leadon 41-91-2269Cgupml Rate67 BPMMercy Health Lor[facility]- [place], KYP Mbwq09tfxvbpsDkjem Health- [place], KSP-R Uagnbmxx399 ms [facility]- [place], KSQ-T Nacinapf921 [facility]- [place], KYQRS Nblszyro54 [facility]- [place], KSQTc Calculation (Ara)431 msMSelect Medical Specialty [facility], KYR Lonaconing-60 degreesCommunity Regional Medical Center, KYT Wwet26lgpfiafOerhc Health- [place], KSVentricular Rate67 BPMCommunity Regional Medical Center, KYEdi, Mhpn Incoming Ekg Results From [facility] - 07/20/2019 1:04 PM EDT Normal sinus rhythm Possible Left atrial enlargement Left axis deviation Pulmonary disease pattern Abnormal ECG When compared with ECG of 24-JUN-2013 16:48, No significant change was foundCommunity Regional Medical Center, [facility]ENTERormal sinus rhythm Possible Left atrial enlargement Left axis deviation Pulmonary disease pattern Abnormal ECG When compared with ECG of 24-JUN-2013 16:48, No significant change was found [facility], KYOtheron [id number] and review of laboratory resultsAbTrinity Health System, KSPOC Glucose Fingerstickon 75-76-5500Iocgyki [Mass/Vol]217 mg/wNSutp47 - 105 mg/dLCommunity Regional [facility] Center, KSInterpretation and review of laboratory resultsAbMadison, KYGlucose [Mass/Vol]204 mg/mIGnyb58 - 105 mg/dLCommunity [facility] Center, KSInterpretation and review of laboratory resultsAbTrinity Health System, KSGlucose [Mass/Vol]189 mg/kBFkid63 - 105 mg/dLCommunity [facility], KSInterpretation and review of laboratory results AbnormalCommunity Regional Medical [place], KSGlucose [Mass/Vol]195 mg/vHRjan02 - 105 mg/dLCommunity Regional Medical Center, KSInterpretation and review of laboratory resultsAbMadison, KYGlucose [Mass/Vol]199 mg/zJEdfl59 - 105 mg/dLCommunity [facility], [place] Interpretation and review of laboratory resultsAbTrinity Health System, [place] TRIGLYCERIDESon 77-07-1384Afbjetyyxsms [Mass/Vol]224 mg/dLHigh<150[place], KYComment on above: Triglyceride Guidelines: <150 Desirable 150-199 Borderline 200-499 High >499 Very high Based on AHA Guidelines for fasting triglyceride, December 2011. Basic Metabolic Panel w/ Reflex to MGon 92-02-2920Okjhq gap [Moles/Vol]16 mmol/L 9 - 17 mmol/LMSelect Medical Specialty [facility], KYBun/Cre RatioNOT REPORTEDMerWashington Rural Health [facility]- [place], [place] Calcium [Mass/Vol]8.6 mg/dL8.6 - 10.4 mg/dLWilson [address] [facility]- [place], KYChloride [Moles/Vol]97 mmol/LLow98 - 107 mmol/LMsycamore medical center Health- [place], KYCO2 [Moles/Vol]24 mmol/L20 - 31 mmol/LMsycamore medical center Health- [place], KYCreatinine [Mass/Vol]0.71 mg/dL0.5 - 0.9 mg/dLWilson [address] [facility]- [place], KYGFR >60>60 mL/minWilson [address] Hospital- [place], [place] GFR Non->60>60 mL/min[address] Hospital- [place], KYGFR/1.73 sq M predicted among non-blacks MDRD (S/P/Bld) [Vol rate/Area]NOT REPORTEDCommunity [facility], [place] GFR/1.73 sq M predicted among non-blacks MDRD (S/P/Bld) [Vol rate/Area][facility], KYComment on above:Average GFR for 50-59 years old: 93 mL/min/1.73sq m Chronic Kidney Disease: <60 mL/min/1.73sq m Kidney failure: <15 mL/min/1.73sq m eGFR calculated using average adult body mass. Additional eGFR calculator available at: http://www.Perpetuelle.com/multiple_crcl_2012.htm Glucose [Mass/Vol]178 mg/eHPawk55 - 99 mg/dLCommunity [facility] Medical Center, KYPotassium [Moles/Vol]4.0 mmol/L3.7 - 5.3 mmol/LMCincinnati VA Medical Center- [place], KYSodium [Moles/Vol]137 mmol/L135 - 144 mmol/LMsycamore medical center Health- [place], KYUrea nitrogen [Mass/Vol]23 mg/dLHigh6 - 20 mg/dLWilson [address] Hospital- [place], KYC-Reactive Proteinon [id number] [Mass/Vol]55.6 mg/LHigh0 - 5 mg/LMsycamore medical center Health- [place], KYCBC auto differentialon 07-19-2019 Basophils (Bld) [#/Vol]0.00 10*3/uLWilson [address] [facility]- [place], KYBasophils/100 WBC (Bld)0 %0 - 2 %[facility], KYDifferential TypeNOT REPORTEDCommunity [facility] Medical [facility], [place] Eosinophils (Bld) [#/Vol]0.00 10*3/[facility] [place], KYEosinophils/100 WBC (Bld)0 %Low1 - 4 %[facility], KSErythrocyte distribution width (RBC) [Ratio]15.2 %High11.8 - 14.4 %[facility], KYHematocrit (Bld) [Volume fraction]47.7 %High36.3 - 47.1 %[facility], CARLOSHemoglobin (Bld) [Mass/Vol] 14.6 g/dL11.9 - 15.1 g/dLCommunity Regional Medical Center, CARLOSImmature granulocytes (Bld) [#/Vol] 0 %0[facility], CARLOSImmature granulocytes (Bld) [#/Vol]0.00 10*3/[facility], CARLOSInterpretation and review of laboratory resultsAbnormalCommunity Regional Medical Center, CARLOSLymphocytes (Bld) [#/Vol]0.89 10*3/uLLowCommunity Regional Medical Center, [place] Lymphocytes/100 WBC (Bld)9 %Low24 - 44 %[facility], KYMCH (RBC) [Entitic mass]27.1 pg25.2 - 33.5 pgCommunity Regional Medical Center, KSMCHC (RBC) [Mass/Vol]30.6 g/dL28.4 - 34.8 g/dLCommunity Regional Medical Center, KSMCV (RBC) [Entitic vol]88.7 fL82.6 - 102.9 fL [facility], KYMonocytes (Bld) [#/Vol]0.10 10*3/[facility], [place] Monocytes/100 WBC (Bld)1 %1 - 7 %[facility], KSMorphology Emmett (Bld) [Interp]ANISOCYTOSIS PRESENTCommunity Regional Medical Center, KSPlatelet mean volume (Bld) [Entitic vol]9.5 fL8.1 - 13.5 fLCommunity Regional Medical Center, KYPlatelets (Bld) [#/Vol]NOT REPORTEDCommunity Regional Medical CenterCARLOSPlatelets (Bld) [#/Vol]307 10*3/uLCommunity [facility] KSRBC (Bld) [#/Vol]5.38 10*6/uLHigh3.95 - 5.11 m/uLCommunity [facility] morphology finding Nom (Bld)NOT REPORTEDCommunity Regional Medical CenterCARLOSgmented neutrophils/100 WBC (Bld)90 %High36 - 66 %[facility] CenterCARLOSSegs Absolute8.91 HighCommunity Regional Medical Center, CARLOSWBC (Bld) [#/Vol]9.9 10*3/uLCommunity Regional Medical Center, CARLOSWBC (Bld) [#/Vol]0.0 10*3/uL0.0 per 100 WBCCommunity Regional Medical Center KSWBC MorphologyNOT REPORTEDWexner Medical Center CARLOS GUTIERREZCOVID-[id number]-CoV-2Not DetectedNot DetectedCommunity Regional Medical CenterCARLOSComment on above: The specimen is NEGATIVE for SARS-CoV-2, the novel coronavirus associated with COVID-19. A negative result does not rule out COVID-19. This test has been authorized by the FDA under an Emergency Use Authorization (EUA) for use by authorized laboratories. Fact sheet for Healthcare Providers: https://www.fda.gov/media/689054/download Fact sheet for Patients: https://www.fda.gov/media/714989/download METHODOLOGY: RT-PCR SARS-CoV-2, PCRCommunity [facility] Medical Center [facility].NASOPHARYNGEAL SWABCommunity Regional Medical CenterCARLOSCulture, Blood 1on 94-84-2005YwfrfwnCJ SAMPLE RECEIVEDACMC Healthcare System CARLOS Special RequestsNOT REPORTEDCommunity Regional Medical CenterCARLOSSpecimen Description.BLOODCommunity Regional Medical CenterCARLOSLactic acid, plasmaon 44-84-3125Pifhouo [Moles/Vol]NOT REPORTED mmol/LMercBaptist Children's Hospital, CARLOSLactic Acid, Whole Blood2.1 mmol/L0.7 - 2.1 mmol/L [facility], CARLOSOtheron 78-13-1715Coexmipxjlijba and review of laboratory resultsAbnormalCommunity Regional Medical Center, KSPO Glucose Fingerstickon 27-23-4531Pzcxewq [Mass/Vol]208 mg/rUAapn67 - 105 mg/dLCommunity [facility], KSInterpretation and review of laboratory resultsAbnormalCommunity Regional Medical Center, KSGlucose [Mass/Vol]188 mg/tCPcfl91 - 105 mg/dLCommunity [facility], KSInterpretation and review of laboratory resultsAbnormalCommunity Regional Medical Center, KSGlucose [Mass/Vol]181 mg/vJSqbx22 - 105 mg/dLCommunity [facility] Medical [facility], KSInterpretation and review of laboratory results AbnormalCommunity Regional Medical Center, KSRespiratory Virus PCR Panelon 32-58-5314Locdsgqhae PCRNot DetectedNot DetectedCommunity Regional Medical Center, KSB Pertussis by PCRNot DetectedNot DetectedCommunity Regional Medical Center, KSBordetella ParapertussisNot DetectedNot Detected [facility], KSChlamydia pneumoniae By PCRNot DetectedNot DetectedCommunity Regional Medical Center, KSCoronavirus 229E PCRNot DetectedNot DetectedCommunity Regional Medical Center, [place] Comment on above:Coronoviruses detected by this panel are those associated with the clinical common cold. This test will not detect 6101-VBJD-ZKO-2 or other novel coronaviruses. Coronavirus HKU1 PCRNot DetectedNot DetectedCommunity Regional Medical Center, KSComment on above:Coronoviruses detected by this panel are those associated with the clinical common cold. This test will not detect 2165-AXWQ-AEZ-2 or other novel coronaviruses. Coronavirus NL63 PCRNot DetectedNot DetectedBismar[place], KYComment on above:Coronoviruses detected by this panel are those associated with the clinical common cold. This test will not detect 0314-OPDX-DLA-2 or other novel coronaviruses. Coronavirus OC43 PCRNot DetectedNot DetectedCommunity Regional Medical Center, KSComment on above:Coronoviruses detected by this panel are those associated with the clinical common cold. This test will not detect 6803-JSGI-ARN-2 or other novel coronaviruses. Human Metapneumovirus PCRNot DetectedNot DetectedCommunity Regional Medical Center, KSInfluenza A by PCRNot DetectedNot DetectedCommunity [facility] Medical Center, KSInfluenza A H1 (2009) PCRNOT REPORTEDNot DetectedCommunity Regional Medical Center, KYInfluenza A H1 PCRNOT REPORTEDNot DetectedMercy Health- [...] [place] Rhino/Enterovirus PCRNot DetectedNot DetectedMercy Health- [place], KSSpecimen Description.NASOPHARYNGEAL SWABMercy Health- [place], [facility] with Reflexon 07-19-2019 TSH Qn0.95 m[IU]/LMercy Health- [place], KYAnion Gap (Calc) POCon 95-83-6812Jepvc gap [Moles/Vol]10 mmol/L7 - 16 mmol/LMercy Health- [place], KSArterial Blood Gas, POCon 47-26-9028Uoqye TestNOT REPORTEDMercy Health- [place], KSaPTT Coag (Bld) [Time]NOT REPORTEDMercy [facility]- [place], [id number] REPORTEDMercy [facility]- [place], KYModeNOT REPORTED [facility]- [place], KYNegative Base Excess, ArtNOT REPORTEDMercy Health- [place], KSO2 Device/Flow/%NOT REPORTEDMercy Health- [place], KYOxygen saturation in Blood92 %Low94 - 98 %[facility]- [place], KSPOC RHW156.9 mmol/LHigh21 - 28 mmol/LMercy [facility]- [place], KSPO rJN990.4[facility]- [place], [facility] pCO2 TempNOT REPORTEDmm HgMercy Health- [place], KSPO pH7.455HighMercy Health- [place], KSPO pH TempNOT REPORTEDMercy Health- [place], [facility] PO261.7LowMercy Health- [place], [facility] pO2 TempNOT REPORTEDmm Hg [facility]- [place], KSPositive Base Excess, Tqz5XruhUecjv Health- [place], KYSale SiteNOT REPORTEDMercy Health- [place], KYTCO2 (calc), Art33 mmol/LHigh22 - 29 mmol/L [facility]- [place], KYAllen TestNOT REPORTEDMercy Health- [place], KYaPTT Coag (Bld) [Time]NOT REPORTEDMer[facility]- [place], WHOYV1FSU REPORTEDMer[facility]- [place], KYMode NOT REPORTEDMer[facility]- [place], KYNegative Base Excess, ArtNOT REPORTEDMercy [facility]- [place], KYO2 Device/Flow/%NOT REPORTEDMercy [facility]- [place], KYOxygen saturation in Blood99 %High94 - 98 %[facility] [place], KYPOC KKH656.1 mmol/LHigh21 - 28 mmol/LMercy [facility]- [place], KYPOC vZK813.9HighMercy Health- [place], KSPOC pCO2 TempNOT REPORTEDmm HgMercy Health- [place], KYPOC pH7.353[facility]- [place], KYPOC pH TempNOT REPORTEDMercy [facility]- [place], KYPOC KR4850.5HighMercy Health- [place], KSPOC pO2 TempNOT REPORTEDmm HgMercy Health- [place], KYPositive Base Excess, Uwz3QpcqUpsmh Health- [place], [facility] SiteNOT REPORTEDMercy Health- [place], KYTCO2 [...] predicted among non-blacks MDRD (S/P/Bld) [Vol rate/Area] [facility], KSComment on above:Average GFR for 50-59 years old: 93 mL/min/1.73sq m Chronic Kidney Disease: <60 mL/min/1.73sq m Kidney failure: <15 mL/min/1.73sq m eGFR calculated using average adult body mass. Additional eGFR calculator available at: http://www.Perpetuelle.com/multiple_crcl_2012.htm GFR/1.73 sq M predicted among non-blacks MDRD (S/P/Bld) [Vol rate/Area]NOT REPORTEDCommunity [facility], KSGlucose [Mass/Vol]149 mg/hNElle41 - 99 mg/dLCommunity Regional Medical Center, KSInterpretation and review of laboratory resultsAbnoBellevue Hospital, KSPotassium [Moles/Vol]3.4 mmol/LLow3.7 - 5.3 mmol/[facility], KYComment on above:ADDED ONSodium [Moles/Vol]146 mmol/UAjds173 - 144 mmol/L [facility], KSUrea nitrogen [Mass/Vol]12 mg/dL6 - 20 mg/dLCommunity Regional Medical Center, KSBeta-Hydroxybutyrateon 64-42-0165Dsmb-Hydroxybutyrate0.51 mmol/LHigh0.02 - 0.27 mmol/[facility], KSInterpretation and review of laboratory results AbnormalCommunity Regional Medical Center, KSCALCIUM, IONIC (POC)on 35-63-2427YCP Ionized Calcium 1.17 mmol/L1.15 - 1.33 mmol/LMSelect [facility] Specialty [facility] [place], KYCALCIUM, IONIZEDon 07-18-2019 Calcium [Mass/Vol]1.11 mmol/LLow1.13 - 1.33 mmol/[facility], [place] Interpretation and review of laboratory resultsAbnoBellevue Hospital, [place] CHLORIDE (POC)on 48-13-5439Vvnqdngl [Moles/Vol]95 mmol/LLow98 - 107 mmol/[facility], KYCreatinine W/GFR Point of Careon 16-10-2041Ljxpptuwny [Mass/Vol] mg/dLLow0.51 - 1.19 mg/dLCommunity [facility], KYGFR Non- AmericanCANNOT BE CALCULATED>60 mL/minCommunity Regional Medical Center, KYGFR/1.73 sq M predicted among non-blacks MDRD (S/P/Bld) [Vol rate/Area][facility], KSComment on above:Average GFR for 50-59 years old: 93 mL/min/1.73sq m Chronic Kidney Disease: <60 mL/min/1.73sq m Kidney failure: <15 mL/min/1.73sq m eGFR calculated using average adult body mass. Additional eGFR calculator available at: http://www.Perpetuelle.com/CNS Response_crcl_2012.htm GFR/1.73 sq M predicted among non-blacks MDRD (S/P/Bld) [Vol rate/Area]CANNOT BE CALCULATED>60 mL/minCommunity Regional Medical Center, KYFERRITINon 24-79-3802Ldppmvuq [Mass/Vol] 28 ug/L13 - 150 ug/LMSelect Medical Specialty Hospital [facility] [place], KYHemoglobin and hematocrit, bloodon 98-41-1706Ijbsgveahl (Bld) [Volume fraction]50 %High36 - 46 %[facility], KSHemoglobin (Bld) [Mass/Vol]16.9 g/xYAzit92 - 16 g/dLCommunity Regional Medical Center, [place] LACTATE DEHYDROGENASEon 58-72-0699Weicpmhslvtubq and review of laboratory resultsAbnormalCommunity Regional Medical Center, KQIV890 U/AUzsi021 - 214 U/LMSelect [facility] Specialty [facility], KYLactic Acid, POCon 32-99-9465RAU Lactic Acid0.39 mmol/LLow0.56 - 1.39 mmol/L [facility], KSLegionella antigen, urineon 33-39-8409Ifarakltuj Pneumophilia Ag, UrineNegativeCommunity Regional Medical Center, KYComment on above:L. pneumophila serogroup 1 antigen not detected. A negative result does not exclude infection with Leginella pnemophila serogroup 1 nor does it rule out other microbial-caused respiratory infections of disease caused by other serogroups of Legionella pneumophila. MAGNESIUMon 89-78-6422Spgqlredq [Mass/Vol]1.9 mg/dL1.6 - 2.6 mg/dLMercy Health- [place], KYMRSA DNA Probe, Nasalon 48-56-2427QASP, DNA, NasalNEGATIVE: MRSA DNA not detected by [...] Specimen Description.NASAL SWABMercy Health- [place], KYMicroscopic Urinalysison 48-40-3853Uizcypdhq, UANOT REPORTEDNoneMercy Health- [place], KYBacteria, UANOT REPORTEDNoneMercy [...] [place]-[facility]- [place], KYMixed Venous Gas, POCon 31-90-8473Zisoj TestNOT REPORTEDMercy Health- [place], KYaPTT Coag (Bld) [Time]NOT REPORTEDMercy Health- [place], [id number] REPORTEDMercy Health- [place], KYHCO3, Mixed38.6 mmol/LHigh23 - 29 mmol/LMercy [facility]- [place], KYMode NOT REPORTEDMercy Health- [place], KYNegative Base Excess, MixedNOT REPORTEDMercy Health- [place], KYO2 Device/Flow/%NOT REPORTEDMercy Health- [place], KYOxygen saturation in Blood82 %High60 - 80 %[facility]- [place], KYPCO2, Yoywf33Dvcfslmzzu highMercy Health [facility]- [place], KYPH MIXED7.302LowMerWashington [facility]- [place], KYPO2, Mixed53.5HighWilson [address] Hospital- [place], KYPOC pCO2 TempNOT REPORTEDmm HgWilson Street Hospital- [place], KYPOC pH TempNOT REPORTEDWilson Street [facility]- [place], KYPOC pO2 TempNOT REPORTEDmm HgWilson Street Hospital- [place], [place] Positive Base Excess, Uwiyz2PcrhBvhut Health- [place], KYSample SiteRight Radial ArteryWilson Street Hospital- [place], KYtCO2, Mixed41 mmol/LHigh24 - 30 mmol/LMCincinnati VA Medical Center- [place], KYNotification Panel, POCon 44-62-7327VckalrYnlxvsteqkzvsonPxyon Health- [place], KSDate/Time07/18/201902:24:00[facility], KYNOTIFYdUniversity Hospitals [facility]- [place], [place] READ BACKYesMCincinnati VA Medical Center- [place], KYOtheron 93-57-4690Qnepnccglvwxne and review of laboratory resultsAbnoBellevue Hospital, KSInterpretation and review of laboratory resultsAbnoBellevue Hospital, KSInterpretation and review of laboratory resultsAbnoBellevue Hospital, [facility] Glucose Fingerstickon 98-66-6825Mkndtkk [Mass/Vol]164 mg/eAEslu28 - 105 mg/dLCommunity [facility], [place] Interpretation and review of laboratory resultsAbnoBellevue Hospital, [place] Glucose [Mass/Vol]113 mg/vDJzsf44 - 105 mg/dLCommunity [facility], KSInterpretation and review of laboratory resultsAbnoBellevue Hospital, KSGlucose [Mass/Vol] 135 mg/tJHhjg26 - 105 mg/dLCommunity [facility], KSInterpretation and review of laboratory resultsAbTrinity Health System, KSGlucose [Mass/Vol]124 mg/gXRsts49 - 105 mg/dLCommunity [facility], KSInterpretation and review of laboratory results AbnormalCommunity [facility] Medical Center, KSPOCT Glucoseon 06-33-0235Clnttiw [Mass/Vol]143 mg/dL High74 - 100 mg/dLMercy Health- [place], KYGlucose [Mass/Vol]160 mg/wXJjia24 - 100 mg/dLMercy Health- [place], KYGlucose [Mass/Vol]135 mg/gVQefq41 - 100 mg/dLMercy Health- [place], KYPOTASSIUM (POC)on 49-75-9561Gparbvmkf [Moles/Vol]3.4 mmol/LLow3.5 - 4.5 mmol/LMercy Health- [place], KYSODIUM (POC)on 79-48-9634Wfvvcc [Moles/Vol]144 mmol/L138 - 146 mmol/LMercy Health- [place], KYStrep Pneumoniae Antigenon 07-18-2019 Source.CLEAN CATCH URINEMercy Health- [place], KYStrep pneumo AgNegativeMercy Health- [place], KYComment on above:Strep pneumoniae antigen not detectedTroponinon 27-74-6702Wvubaiji I.cardiac [Mass/Vol]NOT REPORTEDMer Health- [place], KYTroponin T.cardiac [Mass/Vol]NOT REPORTED<0.03 ng/mLMercy Health- [place], KYTroponin, High Fubduxpbuog55 ng/L0 - 14 ng/LMercy Health- [place], KYComment on above: High Sensitivity Troponin values cannot be compared with other Troponin methodologies. Patients with high levels of Biotin oral intake (i.e >5mg/day) may have falsely decreased Troponin levels. Samples collected within 8 hours of biotin intake may require additional information for diagnosis. URINALYSISon 93-40-9488Ijbdqzsrk UrineNegativeAbnormalNEGATIVEMercy Health- [place], KYColor, UADARK YELLOWAbnormalYELLOWMercy Health- [place], KYGlucose, UrNegative NEGATIVEMercy Health- [place], KYInterpretation and review of laboratory results AbnormalMercy Health- [place], KYKetones Ql (U)NegativeNEGATIVEMercy Health- [place], [place] Leukocyte esterase Test strip Ql (U)SMALLAbnormalNEGATIVEMercy Health- [place], [place] Nitrite, UrineNegativeNEGATIVEMercy Health- [place], KYpH, UA5.0[facility]- [place], [place] Protein (U) [Mass/Vol]2+AbnormalNEGATIVEMercy Health- [place], KYSpecific [place], UA 1.041HighMercy Health- [place], KYTurbidity UACLOUDYAbnormalCLEARCommunity Regional Medical Center, [place] Urinalysis CommentsNOT REPORTEDCommunity [facility], CARLOSUrine HgbSMALLAbnormal NEGATIVECommunity Regional Medical Center, KSUrobilinogen, UrineNormalNormalCommunity Regional Medical Center, CARLOS XR ABDOMEN FOR NG/OG/NE TUBE PLACEMENTon 64-14-1131Rpo orogastric tube is in the distal stomach.[facility] CenterCARLOSEXAMINATION: ONE SUPINE XRAY VIEW(S) OF THE ABDOMEN [...] evidence of bowel obstruction. Cholecystectomy clips are present.[facility] Medical CenterAudelia Mhpn Incoming Radiant Results From [employer] - 07/18/2019 10:46 AM EDT EXAMINATION: ONE [...] orogastric tube is in the distal stomach. [facility] CenterCARLOSXR CHEST PORTABLEon 18-50-6746Fk obvious pneumothorax after central line placementCommunity Regional Medical Center, Noellei, Mhpn Incoming Radiant Results From [employer] - 07/18/2019 7:49 AM EDT EXAMINATION: ONE [...] left, similar to prior.[facility]- [place], KYAmmoniaon 61-62-3958Wacunmf (P) [Mass/Vol]29 umol/L11 - 51 umol/L [facility]- [place], KYBlood Gas, Arterialon 17-20-3020Adate TestPASSMercy Health- [place], KYaPTT Coag (Bld) [Time]37 sMercy Health- [place], KYCarboxyhemoglobinNOT REPORTED0 - 5 %[facility]- [place], VUYQG5TFD REPORTEDMercy Health- [place], KYHCO3, Btboduth93.5 mmol/LHigh22 - 26 mmol/LMer[facility]- [place], KYInterpretation and review of laboratory resultsAbnormalMercy Health- [place], KYMethemoglobinNOT REPORTED0 - 1.9 %[facility]- [place], KYModeNOT REPORTEDMer[facility]- [place], [place] Negative Base Excess, ArtNOT REPORTED0 - 2 mmol/LMer[facility]- [place], [place] NOTIFICATIONNOT REPORTEDMer[facility]- [place], KYNOTIFICATION TIMENOT REPORTEDMercy [facility]- [place], KYO2 Device/Flow/%ROOM AIRMercy Health- [place], KYOxygen saturation in Blood64.5 %Low95 - 98 %[facility] [place], KYOxyhemoglobinNOT WFYEKBKU16 - 98 % [facility] [place], KYpCO2, Art, Temp AdjNOT REPORTEDMercy Health- [place], KYpCO2, Uaochvby17.4Critically highMercy Health- [place], KYPeep/CpapNOT REPORTEDMer[facility]- [place], KYpH, Art, Temp AdjNOT REPORTEDMer[facility]- [place], KYpH, Arterial7.321 LowMercy Health- [place], KYpO2, Art, Temp AdjNOT REPORTEDWilson [facility]- [place], KYpO2, Augbrikq18.1Critically lowMercy Health [facility]- [place], KYPositive Base Excess, Art4.3 mmol/LHigh0 - 2 mmol/LMercy [facility]- [place], KYPSVNOT REPORTEDWilson Street [facility]- [place], KYPt. PositionSEMI-FOWLERSWilson Street Hospital- [place], KYSample SiteRight Brachial ArteryWilson Street Hospital- [place], KYSet RateNOT REPORTEDWilson [facility]- [place], KYText for RespiratoryNOT REPORTEDWilson [facility]- [place], KYTotal HbNOT DXZDMTHA66 - 16 g/dlWilson [address] Hospital- [place], [place] Total RateNOT REPORTEDWilson [facility]- [place], KYVTNOT REPORTED[facility]- [place], [place] Brain Natriuretic Peptideon 42-11-0996Enaaerxjfgx peptide B (Bld) [Mass/Vol]1007 pg/mLHigh<300[facility]- [place], KYComment on above:Pro-BNP results cannot be compared to BNP results.Natriuretic peptide B (Bld) [Mass/Vol]Pro-BNP Reference Range:[facility], KSComselect specialty hospital-pontiac on above: Rule Out: <300 [place] Zone: Age <50 300-450 Age 50-75 300-900 Age >75 300-1800 Usually represents mild to moderate HF but other cardiopulmonary causes cannot be ruled out. Rule In: Age <50 >450 Age 50-75 >900 Age >75 >1800 CBC Auto Differentialon 83-10-4369Xbduabvzb (Bld) [#/Vol]0.05 10*3/uLWilson [address] Hospital- [place], KYBasophils/100 WBC (Bld)1 %0 - 2 %[facility]- [place], KYDifferential TypeNOT REPORTEDWilson Street [facility]- [place], KYEosinophils (Bld) [#/Vol]0.36 10*3/uLWilson [address] Hospital- [place], KYEosinophils/100 WBC (Bld)4 %1 - 4 %[facility] [place], KSErythrocyte distribution width (RBC) [Ratio]15.7 %High11.8 - 14.4 %[facility], [place] Hematocrit (Bld) [Volume fraction]43.4 %36.3 - 47.1 %[facility], [place] Hemoglobin (Bld) [Mass/Vol]13.7 g/dL11.9 - 15.1 g/dLBismarck, KYImmachildren's hospital of columbus granulocytes (Bld) [#/Vol]0.03 10*3/uLCommunity [facility] Medical Center, KSImmature granulocytes (Bld) [#/Vol]0 %0[place], KYInterpretation and review of laboratory resultsAbnormalBismarck, KYLymphocytes (Bld) [#/Vol]1.60 10*3/uLCommunity Regional Medical Center, KSLymphocytes/100 WBC (Bld)17 %Low24 - 43 %[facility] HospitalH (RBC) [Entitic mass]27.6 pg25.2 - 33.5 pgBismarck, KYMCHC (RBC) [Mass/Vol]31.6 g/dL28.4 - 34.8 g/dLBismarck, KYMCV (RBC) [Entitic vol] 87.5 fL82.6 - 102.9 fLBismarck, KYMonocytes (Bld) [#/Vol]0.70 10*3/uL [facility] KSMonocytes/100 WBC (Bld)7 %3 - 12 %[place], [place] Platelet mean volume (Bld) [Entitic vol]9.0 fL8.1 - 13.5 fLBismarck, [place] Platelets (Bld) [#/Vol]NOT REPORTEDBismarck, KYPlatelets (Bld) [#/Vol] 277 10*3/uLCommunity Regional Medical Center, KSRBC (Bld) [#/Vol]4.96 10*6/uL3.95 - 5.11 m/uL [place], KYRBC morphology finding Nom (Bld)NOT REPORTEDBismarck, KYSegmented neutrophils/100 WBC (Bld)71 %High36 - 65 %[place], [place] Segs Absolute6.82[facility], KSWBC (Bld) [#/Vol]0.0 10*3/uL0.0 per 100 WBC [place], KYWBC (Bld) [#/Vol]9.6 10*3/[facility], KYWBC MorphologyNOT REPORTEDCommunity [facility], KYCKon 49-20-2517Ogxcx CK70 U/L26 - 192 U/[facility], KYCT Chest Pulmonary Embolism W Contraston 07-17-2019 [...] Tissues/Bones: No acute bone or soft tissue abnormality.[facility], KYMild edema. Nonspecific peripheral infiltrates appear somewhat improved. Coronary artery disease. RECOMMENDATIONS: Imaging features can be seen with viral pneumonia, though are nonspecific and can occur with a variety of infectious and noninfectious processes. PneInVan Wert County Hospital, Bridgette Win Incoming Radiant Results From [employer] - 07/17/2019 8:06 PM EDT EXAMINATION: CTA [...] variety of infectious and noninfectious processes. PneInd [facility], KYCT Head WO Contraston 66-44-6364DTVIXAGLIIV: CT OF THE HEAD WITHOUT CONTRAST 07/17/2019 [...] Moderate to severe atherosclerotic calcifications. No acute fracture.[facility] Medical CenterAmy acute findings in the head.[facility], Bridgette Win Incoming Radiant Results From [employer] - 07/17/2019 6:18 PM EDT EXAMINATION: CT [...] IMPRESSION: No acute findings in the head. [facility], KYComprehensive Metabolic Panel w/ Reflex to MGon 07-17-2019 Albumin [Mass/Vol]3.7 g/dL3.5 - 5.2 g/dLCommunity Regional Medical Center, KYAlbumin/Globulin [Mass ratio]1.2 {ratio}[facility], KYALP [Catalytic activity/Vol]93 U/L35 - 104 U/LMSelect [facility]ty [facility] [place], KYALT [Catalytic activity/Vol]11 U/L5 - 33 U/LMSelect [facility]ty [facility] [place], KYAnion gap [Moles/Vol]12 mmol/L9 - 17 mmol/LMSelect [facility]ty [facility] [place], KYAST [Catalytic activity/Vol]12 U/L<32[facility], KYBilirubin Ql (U)0.26 mg/dL Low0.3 - 1.2 mg/dLMercy Health- [place], KYBun/Cre Nwerr59MhexCxvtm Health- [place], [place] Calcium [Mass/Vol]9.1 mg/dL8.6 - 10.4 mg/dLWilson [facility]- [place], KYChloride [Moles/Vol]99 mmol/L98 - 107 mmol/LMsycamore medical center Health- [place], KYCO2 [Moles/Vol]29 mmol/L 20 - 31 mmol/LMlicking memorial hospitaly [facility]- [place], KYCreatinine [Mass/Vol]0.57 mg/dL0.5 - 0.9 mg/dL [facility]- [place], KYGFR >60>60 mL/minWilson [address] [facility]- [place], KYGFR Non->60>60 mL/minWilson [address] [facility]- [place], KYGlucose [Mass/Vol]126 mg/dL High70 - 99 mg/dLWilson [address] [facility]- [place], KYPotassium [Moles/Vol]4.2 mmol/L3.7 - 5.3 mmol/LMlicking memorial hospitaly Health- [place], KYProtein [Mass/Vol]6.7 g/dL6.4 - 8.3 g/dLWilson [address] [facility]- [place], KYSodium [Moles/Vol]140 mmol/L135 - 144 mmol/LMCincinnati VA Medical Center- [place], KYUrea nitrogen [Mass/Vol]13 mg/dL6 - 20 mg/dLWilson [address] Hospital- [place], KYD-dimer, quantitative on [id number]-Dimer, Quant0.97[facility], KYComment on above: Elevated levels of [...] of 98%). Interpretation and review of laboratory resultsAbnormalMercy Health [facility]- [place], [place] Ethanolon [id number] [Mass/Vol]mg/dL<10 mg/dLWilson [address] [facility]- [place], KYEthanol percent<0.010<0.[address] %[facility]- [place], KYMetabolic Panelon [id number]/1.73 sq M predicted among non-blacks MDRD (S/P/Bld) [Vol rate/Area][facility], [place] Comment on above:Stage 1: Some kidney damage [...] body mass. Additional eGFR calculator available at: http://www.Perpetuelle.com/multiple_crcl_2012.htm Microscopic Urinalysison [id number], UANOT REPORTEDNoneMey Health- [place], KYBacteria, UANOT REPORTEDNoneMey Health- [place], KYCasts UANOT REPORTED/LPF [facility]- [place], KYCrystals, UANOT REPORTEDNone /HPFMercy Health- [place], [place] Epithelial Cells UANoneMeohio valley surgical hospital Health- [place], KYMucus, UANOT REPORTEDNoneMey Health- [place], KYOther Observations UANOT REPORTEDNOT REQ.[facility]- [place], KYRBC (U) [#/Vol]0 TO 2[facility]- [place], KYRenal Epithelial, UANOT REPORTED0 /HPFMercy Health- [place], KYTrichomonas, UANOT REPORTEDNoneMercy Health- [place], KYWBC, UA0 TO 2 [facility]- [place], KYYeast, UANOT REPORTEDNoneMeohio valley surgical hospital Health- [place], [place]-[facility]- [place], KYOtheron [id number] and review of laboratory resultsAbnormal [facility]- [place], KYProtime-INRon [id number] Coag (PPP) [Relative time]1.0 {INR}[facility]- [place], KSPT Coag (PPP) [Time]10.6 sMCincinnati VA Medical Center- [place], KSTroponin on [id number] I.cardiac [Mass/Vol]NOT REPORTED[facility], [place] Troponin T.cardiac [Mass/Vol]NOT REPORTED<0.03 ng/mLMercy Health- [place], [...] information for diagnosis. Urinalysis Reflex to Cultureon [id number] UrineNegativeNEGATIVEMercy Health- [place], KYColor, UAYELLOWYELLOWMercy Health- [place], KYGlucose, UrNegative NEGATIVEMercy Health- [place], KYInterpretation and review of laboratory results AbnormalMercy Health- [place], KYKetones Ql (U)NegativeNEGATIVEMercy Health- [place], [place] Leukocyte esterase Test strip Ql (U)NegativeNEGATIVEMercy Health- [place], KYNitrite, UrinePositiveAbnormalNEGATIVEMercy Health- [place], KYpH, UA6.0[facility]- [place], [place] Protein (U) [Mass/Vol]NegativeNEGATIVEMercy Health- [place], KYSpecific [place], UA 1.010[facility]- [place], KYTurbidity UACLEARCLEARMercy Health- [place], KYUrinalysis CommentsNOT REPORTEDMercy Health- [place], KYUrine HgbNegativeNEGATIVEMercy Health- [place], KYUrobilinogen, UrineNormalNormalMercy Health- [place], KYUrine Drug Screenon [id number] Screen, UrNegativeNEGATIVEMercy Health- [place], KYBarbiturate Screen, UrNegativeNEGATIVEMercy Health- [place], KYBenzodiazepine Screen, Urine PositiveAbnormalNEGATIVEMercy Health- [place], KYBuprenorphine UrineNegativeNEGATIVE [facility]- [place], KYCannabinoid Scrn, UrNegativeNEGATIVEMercy Health- [place], [place] Cocaine Metabolite, UrineNegativeNEGATIVEMercy Health- [place], KYInterpretation and review of laboratory resultsAbnormalMercy Health- [place], KYMDMA, UrineNOT REPORTED NEGATIVEMercy Health- [place], KYMethadone Screen, UrineNegativeNEGATIVEMercy Health- [place], KYMethamphetamine, UrineNegativeNEGATIVEMercy Health- [place], KYOpiates, Urine NegativeNEGATIVEMercy Health- [place], KYOxycodone Screen, UrNegativeNEGATIVEPike Community Hospitalcy [facility]- [place], KYPhencyclidine, UrineNegativeNEGATIVEMercy Health [facility]- [place], [place] Propoxyphene, UrineNegativeNEGATIVEPike Community Hospitalcy Health- [place], KYTest InformationNOT REPORTEDWilson Street Hospital- [place], KYTricyclic Antidepressants, UrineNegativeNEGATIVE [facility]- [place], KYComment on above:Drug screen results are to be used for medical purposes only. All positive results are unconfirmed. Testing for employment or legal uses should be sent to a reference laboratory for confirmation. XR CHEST PORTABLEon [id number], Mhpn Incoming Radiant Results From [employer]/Pacs - [...] is suspected to be atelectasis or scarring. [facility], KYMild pulmonary edema. Small linear left lower lobe opacity is suspected to be atelectasis or scarring.[facility]- [place], KYEXAMINATION: ONE X-RAY VIEW OF THE CHEST 07/17/2019 6:10 pm COMPARISON: April 21, 2019 HISTORY: ORDERING SYSTEM PROVIDED HISTORY: Fall TECHNOLOGIST PROVIDED HISTORY: Fall FINDINGS: Rotated positioning. No focal consolidation. Small linear left lower lobe opacity. Cardiomegaly. Mild pulmonary edema.[facility], KYCBC Auto Differentialon [id number] (Bld) [#/Vol]0.08 10*3/uLMercy Health Lorain Hospital [facility]- [place], [place] Basophils/100 WBC (Bld)1 %0 - 2 %[facility]- [place], KYDifferential TypeNOT REPORTEDWilson Street Hospital- [place], KYEosinophils (Bld) [#/Vol]0.56 10*3/uLHighMer Health- [place], KYEosinophils/100 WBC (Bld)4 %1 - 4 %[facility]- [place], KYErythrocyte distribution width (RBC) [Ratio]14.9 %High11.8 - 14.4 %[place], [place] Hematocrit (Bld) [Volume fraction]48.3 %High36.3 - 47.1 %[place], [place] Hemoglobin (Bld) [Mass/Vol]14.9 g/dL11.9 - 15.1 g/dLBismarck, KYImmature granulocytes (Bld) [#/Vol]0.04 10*3/uLCommunity Regional Medical CenterCARLOSImmature granulocytes (Bld) [#/Vol]0 %0[place], KYInterpretation and review of laboratory resultsAbnormalCommunity [facility] Medical Center, KSLymphocytes (Bld) [#/Vol]2.18 10*3/uLCommunity [facility] Center KSLymphocytes/100 WBC (Bld)16 %Low24 - 43 %[place], KYMCH (RBC) [Entitic mass]27.8 pg25.2 - 33.5 pgBismarck, KYMCHC (RBC) [Mass/Vol]30.8 g/dL28.4 - 34.8 g/dLBismarck, KYMCV (RBC) [Entitic vol] 90.1 fL82.6 - 102.9 fLCommunity [facility] Medical Center KSMonocytes (Bld) [#/Vol]0.78 10*3/uL [facility] CenterCARLOSMonocytes/100 WBC (Bld)6 %3 - 12 %[place], [place] Platelet mean volume (Bld) [Entitic vol]9.3 fL8.1 - 13.5 fLBismarck, [place] Platelets (Bld) [#/Vol]281 10*3/uL[facility] KSPlatelets (Bld) [#/Vol]NOT REPORTEDBismarck, KYRBC (Bld) [#/Vol]5.36 10*6/uLHigh3.95 - 5.11 m/uL [place], KYRBC morphology finding Nom (Bld)NOT REPORTEDBismarck, KYSegmented neutrophils/100 WBC (Bld)73 %High36 - 65 %[place], [place] Segs Kdehhywy22.02HighMercy Health- [place], KYWBC (Bld) [#/Vol]13.7 10*3/uLHighMerWashington [facility]- [place], KYWBC (Bld) [#/Vol]0.0 10*3/uL0.[address]- [place], [place] WBC MorphologyNOT REPORTEDWilson [address] [facility]- [place], KYComprehensive Metabolic Panelon [id number] [Mass/Vol]4.3 g/dL3.5 - 5.2 g/dLWilson [address] [facility]- [place], [place] Albumin/Globulin [Mass ratio]1.4 {ratio}[facility]- [place], KYALP [Catalytic activity/Vol]84 U/L35 - 104 U/LMCincinnati VA Medical Center- [place], KYALT [Catalytic activity/Vol]9 U/L5 - 33 U/LMsycamore medical center Health- [place], KYAnion gap [Moles/Vol]11 mmol/L9 - 17 mmol/L [facility]- [place], KYAST [Catalytic activity/Vol]13 U/L<32[facility]- [place], [place] Bilirubin Ql (U)0.22 mg/dLLow0.3 - 1.2 mg/dLWilson [address] [facility]- [place], KYBun/Cre Ratio[address]- [place], KYCalcium [Mass/Vol]9.3 mg/dL8.6 - 10.4 mg/dLWilson [facility]- [place], KYChloride [Moles/Vol]95 mmol/LLow98 - 107 mmol/LMCincinnati VA Medical Center- [place], KYCO2 [Moles/Vol]29 mmol/L20 - 31 mmol/LMCincinnati VA Medical Center- [place], KYCreatinine [Mass/Vol]0.55 mg/dL0.5 - 0.9 mg/dL[facility]- [place], KYGFR >60>60 mL/minWilson [address] [facility]- [place], KYGFR Non->60>60 mL/min[address] [facility]- [place], KYGlucose [Mass/Vol]82 mg/dL70 - 99 mg/dLWilson [facility]- [place], KYInterpretation and review of laboratory resultsAbnormalWilson Street [facility]- [place], KYPotassium [Moles/Vol]4.2 mmol/L3.7 - 5.3 mmol/LMsycamore medical center Health- [place], KYProtein [Mass/Vol]7.4 g/dL6.4 - 8.3 g/dLBism[place], KYSodium [Moles/Vol]135 mmol/L135 - 144 mmol/LMPoyntelle, [place] Urea nitrogen [Mass/Vol]15 mg/dL6 - 20 mg/dLBismar[place], KYMetabolic Panel on [id number]/1.73 sq M predicted among non-blacks MDRD (S/P/Bld) [Vol rate/Area][place], KYComment on above:Stage 1: Some kidney damage [...] body mass. Additional eGFR calculator available at: http://www.Perpetuelle.com/multiple_crcl_2012.htm Troponinon [id number] I.cardiac [Mass/Vol]NOT REPORTEDBismarck, KYTrsaint thomas hickman hospitalnin T.cardiac [Mass/Vol]NOT REPORTED<0.03 ng/mLBism[place], [place] Troponin, High Sensitivity7 ng/L0 - 14 ng/LMPoyntelle, KYComselect specialty hospital-pontiac on above: High Sensitivity Troponin values cannot be compared with other Troponin methodologies. Patients with high levels of Biotin oral intake (i.e >5mg/day) may have falsely decreased Troponin levels. Samples collected within 8 hours of biotin intake may require additional information for diagnosis. XR HAND LEFT (MIN 3 VIEWS)on [id number] acute fracture or dislocation in the left hand. Chronic deformities and moderate to severe degenerative changes at the 1st carpometacarpal joint. Mild soft tissue swellingBism[place], [place] EXAMINATION: THREE XRAY VIEWS OF THE [...] tissue swelling. No evidence of radiopaque foreign body.[facility] CenterAudelia Mhpn Incoming Radiant Results From [employer]/Pacs - 05/27/2019 9:51 AM EST EXAMINATION: THREE [...] 1st carpometacarpal joint. Mild soft tissue swelling [facility] RepRegenOZARKS [facility], CARLOSVeterans Administration Medical Center Metabolic PanelOrdered By: Ziggy Smith on [id number] gap [Moles/Vol]8 mmol/LLow9 - 17 mmol/LMercy RepRegen Work Phone: bun/Cre Jjhub07MirqBindy Health Work Phone: calcium [Mass/Vol]9.1 mg/dL8.6 - 10.4 mg/dLPike Community HospitalJoyhound Work Phone: chloride [Moles/Vol]100 mmol/L98 - 107 mmol/LMercy RepRegen Work Phone: JO2 [Moles/Vol]32 mmol/LHigh20 - 31 mmol/LMercy RepRegen Work Phone: creatinine [Mass/Vol]0.48 mg/dLLow0.5 - 0.9 mg/dLPike Community HospitalAccelitec Phone: GFR >60>60 mL/minPike Community HospitalJoyhound Work Phone: GFR CommentPike Community HospitalAccelitec Phone: comment on above:Average GFR for 50-59 years old: 93 mL/min/1.73sq m Chronic Kidney Disease: <60 mL/min/1.73sq m Kidney failure: <15 mL/min/1.73sq m eGFR calculated using average adult body mass. Additional eGFR calculator available at: http://www.Perpetuelle.com/multiple_crcl_2012.htm GFR Non->60>60 mL/minPike Community HospitalAccelitec Phone: GFR StagingPike Community HospitalAccelitec Phone: comment on above:Stage 1: Some kidney damage normal GFR Stage 2: Mild kidney damage GFR 60-89 Stage 3: Moderate kidney damage GFR 30-59 Stage 4: Severe kidney damage GFR 15-29 Stage 5: Severe kidney damage GFR <15 ESRD - chronic treatment by dialysis or transplant Glucose [Mass/Vol]111 mg/gFKmyi06 - 99 mg/dLPike Community HospitalAccelitec Phone: Interpretation and review of laboratory results AbnormalPike Community HospitalAccelitec Phone: potassium [Moles/Vol]4.1 mmol/L3.7 - 5.3 mmol/LMlicking memorial hospitaly [employer] Phone: sodium [Moles/Vol]140 mmol/L135 - 144 mmol/LMercy [employer] Phone: Urea nitrogen [Mass/Vol]14 mg/dL6 - 20 mg/dLPike Community HospitalAccelitec Phone: cBC Auto DifferentialOrdered By: Ziggy Smith on [id number] Eos #<0.03P[facility] HospitalAccelitec Phone: absolute Immature Granulocyte0.04[facility] HospitalAcc[facility]ite[facility] Phone: absolute Lymph #1.73[facility] HospitalAcc[facility] Phone: absolute Nelson #0.92[facility] HospitalAcc[facility]c Phone: Basophils (Bld) [#/Vol]10*3/uLPike Community HospitalAccelitec Phone: Basophils/100 WBC (Bld)0 %0 - 2 %[employer] Phone: differential TypeNOT REPORTEDPike Community HospitalAccelitec Phone: eosinophils/100 WBC (Bld)0 %Low1 - 4 %[employer] Phone: erythrocyte distribution width (RBC) [Ratio]13.7 %11.8 - 14.4 %[employer] Phone: Hematocrit (Bld) [Volume fraction]47.1 %36.3 - 47.1 % [employer] Phone: Hemoglobin (Bld) [Mass/Vol]14.7 g/dL11.9 - 15.1 g/dL [employer] Phone: Immature granulocytes/100 WBC (Bld)0 %0P[facility] HospitalAccelitec Phone: Interpretation and review of laboratory results AbnormalPike Community HospitalAccelitec Phone: lymphocytes/100 WBC (Bld)19 %Low24 - 43 %[employer] Phone: MCH (RBC) [Entitic mass]28.5 pg25.2 - 33.5 pgPike Community HospitalAccelitec Phone: MCHC (RBC) [Mass/Vol]31.2 g/dL28.4 - 34.8 g/dLPike Community HospitalAccelitec Phone: MCV (RBC) [Entitic vol]91.3 fL82.6 - 102.9 fLPike Community HospitalAccelitec Phone: Monocytes/100 WBC (Bld)10 %3 - 12 %[employer] Phone: NRBC Automated0.00.0 per 100 WBCPike Community HospitalAccelitec Phone: platelet EstimateNOT REPORTEDPike Community HospitalJoyhound Work Phone: platelet mean volume (Bld) [Entitic vol]9.3 fL8.1 - 13.5 fLPike Community HospitalAccelitec Phone: [phone] (Bld) [#/Vol]238 10*3/uLPike Community HospitalJoyhound Work Phone: [phone] (Bld) [#/Vol]5.16 10*6/uLHigh3.95 - 5.11 m/uLPike Community HospitalJoyhound Work Phone: RBC morphology finding Nom (Bld)NOT REPORTEDPike Community HospitalAccelitec Phone: segmented neutrophils/100 WBC (Bld)71 %High36 - 65 % [facility] [employer] Phone: segs Absolute6.53P[facility] HospitalAcc[facility] Phone: WBC (Bld) [#/Vol]9.3 10*3/uLPike Community HospitalAccelitec Phone: WBC MorphologyNOT REPORTEDPike Community HospitalJoyhound Work Phone: culture Blood #1Ordered By: Wesly Whitten on 04-26-2019 Special [id number], L ACPike Community HospitalAccelitec Phone: special RequestsRAC 20 MLPike Community HospitalAccelitec Phone: specimen Description.BLOODPike Community HospitalAccelitec Phone: Glucose, Whole BloodOrdered By: Gordo De Santiago on [id number] [Mass/Vol]149 mg/dJByvi05 - 100 mg/dLPike Community HospitalAccelitec Phone: Interpretation and review of laboratory results AbnormalPike Community HospitalAccelitec Phone: Glucose [Mass/Vol]129 mg/zYWokh81 - 100 mg/dLPike Community HospitalAccelitec Phone: Interpretation and review of laboratory results AbnormalPike Community HospitalAccelitec Phone: laboratory - Microbiology and Antimicrobial susceptibilityOrdered By: Wesly Whitten on [id number] identified Cx Nom (Unsp spec)NO GROWTH 5 DAYSPike Community HospitalJoyhound Work Phone: basic Metabolic PanelOrdered By: Ziggy Smith on [id number] gap [Moles/Vol]13 mmol/L9 - 17 mmol/LMercy RepRegen Work Phone: bun/Cre Soymi93BxihHqvyn Health Work Phone: calcium [Mass/Vol]9.0 mg/dL8.6 - 10.4 mg/dLPike Community HospitalAccelitec Phone: chloride [Moles/Vol]100 mmol/L98 - 107 mmol/LMercy RepRegen Work Phone: cO2 [Moles/Vol]29 mmol/L20 - 31 mmol/LMlicking memorial hospitalSenseg Work Phone: creatinine [Mass/Vol]0.42 mg/dLLow0.5 - 0.9 mg/dLPike Community HospitalAccelitec Phone: GFR >60>60 mL/minPike Community HospitalAccelitec Phone: GFR CommentPike Community HospitalAccelitec Phone: comment on above:Average GFR for 50-59 years old: 93 mL/min/1.73sq m Chronic Kidney Disease: <60 mL/min/1.73sq m Kidney failure: <15 mL/min/1.73sq m eGFR calculated using average adult body mass. Additional eGFR calculator available at: http://www.Sumavisos.Stukent/multiple_crcl_2012.htm GFR Non->60>60 mL/minPike Community HospitalJoyhound Work Phone: GFR StagingPike Community HospitalAccelitec Phone: comment on above:Stage 1: Some kidney damage normal GFR Stage 2: Mild kidney damage GFR 60-89 Stage 3: Moderate kidney damage GFR 30-59 Stage 4: Severe kidney damage GFR 15-29 Stage 5: Severe kidney damage GFR <15 ESRD - chronic treatment by dialysis or transplant Glucose [Mass/Vol]145 mg/rYKkgw11 - 99 mg/dLPike Community HospitalAccelitec Phone: Interpretation and review of laboratory results AbnormalPike Community HospitalAccelitec Phone: potassium [Moles/Vol]4.0 mmol/L3.7 - 5.3 mmol/LMercy RepRegen Work Phone: sodium [Moles/Vol]142 mmol/L135 - 144 mmol/LMlicking memorial hospitaly RepRegen Work Phone: Urea nitrogen [Mass/Vol]12 mg/dL6 - 20 mg/dLPike Community HospitalAccelitec Phone: cBC Auto DifferentialOrdered By: Ziggy Smith on [id number] Eos #<0.03P[facility] HospitalAcc[facility]itec Phone: absolute Immature Granulocyte0.03P[facility] HospitalAcc[facility] Phone: absolute Lymph #1.55[facility] HospitalAcc[facility] Phone: absolute Nelson #0.82P[facility] HospitalAcc[facility] Phone: basophils (Bld) [#/Vol]10*3/uLPike Community HospitalAccelitec Phone: basophils/100 WBC (Bld)0 %0 - 2 %[employer] Phone: differential TypeNOT REPORTEDPike Community HospitalAccelitec Phone: eosinophils/100 WBC (Bld)0 %Low1 - 4 %[employer] Phone: erythrocyte distribution width (RBC) [Ratio]14.1 %11.8 - 14.4 %[employer] Phone: Hematocrit (Bld) [Volume fraction]45.2 %36.3 - 47.1 % [employer] Phone: Hemoglobin (Bld) [Mass/Vol]14.1 g/dL11.9 - 15.1 g/dL [employer] Phone: Immature granulocytes/100 WBC (Bld)0 %0P[facility] HospitalAcc[facility]itec Phone: Interpretation and review of laboratory results AbnormalPike Community HospitalAccelitec Phone: Lymphocytes/100 WBC (Bld)17 %Low24 - 43 %[employer] Phone: MCH (RBC) [Entitic mass]28.8 pg25.2 - 33.5 pgPike Community HospitalAccelitec Phone: MCHC (RBC) [Mass/Vol]31.2 g/dL28.4 - 34.8 g/dLPike Community HospitalAccelitec Phone: MCV (RBC) [Entitic vol]92.4 fL82.6 - 102.9 fLPike Community HospitalAccelitec Phone: Monocytes/100 WBC (Bld)9 %3 - 12 %[employer] Phone: NRBC Automated0.00.0 per 100 WBCPike Community HospitalAccelitec Phone: platelet EstimateNOT REPORTEDPike Community HospitalAccelitec Phone: Platelet mean volume (Bld) [Entitic vol]9.4 fL8.1 - 13.5 fLPike Community HospitalAccelitec Phone: [phone] (Bld) [#/Vol]239 10*3/uLCrowdZone Phone: [phone] (Bld) [#/Vol]4.89 10*6/uL3.95 - 5.11 m/uLCrowdZone Phone: RBC morphology finding Nom (Bld)NOT REPORTEDPike Community HospitalAccelitec Phone: Segmented neutrophils/100 WBC (Bld)74 %High36 - 65 % [employer] Phone: Segs Absolute6.84P[facility] HospitalJoyhound Work Phone: WBC (Bld) [#/Vol]9.3 10*3/uLMer RepRegen Work Phone: WBC MorphologyNOT REPORTEDMer RepRegen Work Phone: Glucose, Whole BloodOrdered By: Gordo De Santiago on 73-17-1514Xwifvqh [Mass/Vol]216 mg/uABers65 - 100 mg/dLMercy Health Lorain Hospital [employer] Phone: Interpretation and review of laboratory results AbnormalPike Community HospitalAccelitec Phone: Glucose [Mass/Vol]267 mg/gHLype84 - 100 mg/dLMercy Health Lorain Hospital [employer] Phone: Interpretation and review of laboratory results AbnormalMercy Health Lor[facility] Hospital [employer] Phone: Glucose [Mass/Vol]245 mg/fXUwps96 - 100 mg/dLMercy Health Lorain Hospital [employer] Phone: Interpretation and review of laboratory results AbnormalPike Community HospitalAccelitec Phone: Glucose [Mass/Vol]124 mg/fCYkao40 - 100 mg/dLMercy Health Lorain Hospital [employer] Phone: Interpretation and review of laboratory results AbnormalPike Community HospitalAccelitec Phone: MRSA DNA Probe, NasalOrdered By: Gordo De Santiago on [id number], DNA, NasalNEGATIVE: MRSA DNA not detected by nucleic acid amplification.NEGATIVE: MRSA DNA not detected by nucleic acid amplificatiMercy Health Lorain Hospital [employer] Phone: comment on above: Results should be used as an adjunct to nosocomial control efforts to identify patients needing enhanced precautions. The test is not intended to identify patients with staphylococcal infections. Results should not be used to guide or monitor treatment for MRSA infections. Specimen Description.NASAL SWABPike Community HospitalJoyhound Work Phone: basic Metabolic PanelOrdered By: Ziggy Smith on 71-99-5555Ickli gap [Moles/Vol]9 mmol/L9 - 17 mmol/LMercy Health Work Phone: bun/Cre Mpstc64WhagQktoo Health Work Phone: calcium [Mass/Vol]8.7 mg/dL8.6 - 10.4 mg/dLPike Community HospitalAccelitec Phone: chloride [Moles/Vol]103 mmol/L98 - 107 mmol/LMlicking memorial hospitaly [employer] Phone: cO2 [Moles/Vol]27 mmol/L20 - 31 mmol/LMlicking memorial hospitaly [employer] Phone: creatinine [Mass/Vol]0.49 mg/dLLow0.5 - 0.9 mg/dLPike Community HospitalAccelitec Phone: GFR >60>60 mL/minPike Community HospitalAccelitec Phone: GFR CommentPike Community HospitalAccelitec Phone: comment on above:Average GFR for 50-59 years old: 93 mL/min/1.73sq m Chronic Kidney Disease: <60 mL/min/1.73sq m Kidney failure: <15 mL/min/1.73sq m eGFR calculated using average adult body mass. Additional eGFR calculator available at: http://www.Perpetuelle.com/multiple_crcl_2012.htm GFR Non->60>60 mL/minPike Community HospitalAccelitec Phone: GFR StagingPike Community HospitalAccelitec Phone: comment on above:Stage 1: Some kidney damage normal GFR Stage 2: Mild kidney damage GFR 60-89 Stage 3: Moderate kidney damage GFR 30-59 Stage 4: Severe kidney damage GFR 15-29 Stage 5: Severe kidney damage GFR <15 ESRD - chronic treatment by dialysis or transplant Glucose [Mass/Vol]147 mg/gITiim89 - 99 mg/dLPike Community HospitalAccelitec Phone: Interpretation and review of laboratory results AbnormalPike Community HospitalAccelitec Phone: potassium [Moles/Vol]3.9 mmol/L3.7 - 5.3 mmol/LMScoreGrid Phone: sodium [Moles/Vol]139 mmol/L135 - 144 mmol/LMInlet Technologies Work Phone: Urea nitrogen [Mass/Vol]19 mg/dL6 - 20 mg/dLPike Community HospitalAccelitec Phone: cBC Auto DifferentialOrdered By: Ziggy Smith on [id number] Eos #<0.03P[facility] HospitalAcc[facility] Phone: absolute Immature Granulocyte0.06P[facility] HospitalAcc[facility] Phone: absolute Lymph #1.68[facility] HospitalAcc[facility] Phone: absolute Nelson #0.75[facility]Acc[facility] Phone: basophils (Bld) [#/Vol]10*3/uLPike Community HospitalAccelitec Phone: basophils/100 WBC (Bld)0 %0 - 2 %[employer] Phone: differential TypeNOT REPORTEDPike Community HospitalAccelitec Phone: eosinophils/100 WBC (Bld)0 %Low1 - 4 %[employer] Phone: erythrocyte distribution width (RBC) [Ratio]14.5 %High 11.8 - 14.4 %[employer] Phone: Hematocrit (Bld) [Volume fraction]44.8 %36.3 - 47.1 % [employer] Phone: Hemoglobin (Bld) [Mass/Vol]13.5 g/dL11.9 - 15.1 g/dL [employer] Phone: Immature granulocytes/100 WBC (Bld)1 %Xuhm8YnlzrAccelitec Phone: Interpretation and review of laboratory results AbnormalPike Community HospitalAccelitec Phone: Lymphocytes/100 WBC (Bld)14 %Low24 - 43 %[employer] Phone: [phone] (RBC) [Entitic mass]28.7 pg25.2 - 33.5 pgPike Community HospitalAccelitec Phone: MCHC (RBC) [Mass/Vol]30.1 g/dL28.4 - 34.8 g/dLPike Community HospitalAccelitec Phone: MCV (RBC) [Entitic vol]95.1 fL82.6 - 102.9 fLPike Community HospitalAccelitec Phone: Monocytes/100 WBC (Bld)6 %3 - 12 %[employer] Phone: NRBC Automated0.00.0 per 100 WBCPike Community HospitalAccelitec Phone: Clatelet EstimateNOT REPORTEDPike Community HospitalAccelitec Phone: Platelet mean volume (Bld) [Entitic vol]9.5 fL8.1 - 13.5 fLPike Community HospitalAccelitec Phone: Platelets (Bld) [#/Vol]238 10*3/uLPike Community HospitalJoyhound Work Phone: RBC (Bld) [#/Vol]4.71 10*6/uL3.95 - 5.11 m/uLPike Community HospitalAccelitec Phone: RBC morphology finding Nom (Bld)NOT REPORTEDPike Community [facility] Phone: Segmented neutrophils/100 WBC (Bld)79 %High36 - 65 % CrowdZone Phone: Segs Absolute9.65HighPike Community HospitalAccelitec Phone: [phone] (Bld) [#/Vol]12.2 10*3/uLLogan Regional Medical CenterCrowdZone Phone: WBC MorphologyNOT REPORTEDPike Community HospitalAccelitec Phone: Glucose, Whole BloodOrdered By: Gordo De Santiago on 09-20-9705Vmzjhsh [Mass/Vol]175 mg/oGJtjz00 - 100 mg/dLMerIzenda, Inc. Health Work Phone: Interpretation and review of laboratory results AbnormalMerIzenda, Inc. Health Work Phone: Glucose [Mass/Vol]339 mg/oLJhrl64 - 100 mg/dLMercy Health Work Phone: Interpretation and review of laboratory results AbnormalMerIzenda, Inc. Health Work Phone: Glucose [Mass/Vol]182 mg/cFQmnc99 - 100 mg/dLMercy Health Work Phone: Interpretation and review of laboratory results AbnormalMerJoyhound Work Phone: Glucose [Mass/Vol]130 mg/uWZrlz67 - 100 mg/dLMerIzenda, Inc. Health Work Phone: Interpretation and review of laboratory results AbnormalMerJoyhound Work Phone: blood Gas, ArterialOrdered By: Ziggy Smith on [id number] TestPASSMerJoyhound Work Phone: [phone] - 5 %[employer] Work Phone: FIO2NOT REPORTEDLezhin Entertainment Work Phone: HCO3 (Bld) [Moles/Vol]26.5 mmol/LHigh22 - 26 mmol/L [employer] Work Phone: Interpretation and review of laboratory results AbnormalMerJoyhound Work Phone: MethemoglobinNOT REPORTED0 - 1.9 %[employer] Work Phone: ModeNOT REPORTEDMerJoyhound Work Phone: Negative Base Excess, Art0.2 mmol/L0 - 2 mmol/LMercy Health Work Phone: NOTIFICATIONNOT REPORTEDMerJoyhound Work Phone: NOTIFICATION TIMENOT REPORTEDMercy Health Work Phone: O2 Device/Flow/%CannulaMercy Health Work Phone: Oxygen saturation in Blood89.6 %Low95 - 98 %[facility] Work Phone: OxyhemoglobinNOT EPGRRNQB24 - 98 %[facility] Work Phone: [phone], Art, Temp AdjNOT REPORTEDMercy Health Work Phone: kLK6, Spfbyhtj75.2HighMercy Health Work Phone: [phone]/CpapNOT REPORTEDMercy Health Work Phone: pH, Art, Temp AdjNOT REPORTEDMercy Health Work Phone: pH, Arterial7.332LowMercy Health Work Phone: [phone], Art, Temp AdjNOT REPORTEDMer Health Work Phone: kD5, Wefjpewk16.2LowMer Health Work Phone: Positive Base Excess, ArtNOT REPORTED0 - 2 mmol/LMercy Health Work Phone: PSVNOT REPORTEDMerIzenda, Inc. Health Work Phone: Pt Temp37.0[facility] Work Phone: Pt. PositionFOWLERSMer Health Work Phone: Respiratory rate20 /minMercy Health Work Phone: sample SiteRight Radial ArteryMer Health Work Phone: Set RateNOT REPORTEDMer Health Work Phone: Text for RespiratoryNOT REPORTEDMerIzenda, Inc. Health Work Phone: Total HbNOT MNJRIDJW07 - 16 g/dlMercy Health Work Phone: Total RateNOT REPORTEDMercy Health Work Phone: VTNOT REPORTEDMercy Health Work Phone: Urine CultureOrdered By: Wesly Whitten on 04-23-2019 Bacteria identified Cx Nom (U)NO SIGNIFICANT GROWTHMercy Health [facility] RepRegen Work Phone: special RequestsNOT REPORTEDPike Community HospitalJoyhound Work Phone: specimen Description.CLEAN CATCH URINEPike Community HospitalJoyhound Work Phone: blood Gas, ArterialOrdered By: Oliva Tristan on [id number] TestPASSPike Community HospitalJoyhound Work Phone: [phone] - 5 %[facility] Work Phone: [phone] Health Work Phone: HCO3 (Bld) [Moles/Vol]23.0 mmol/L22 - 26 mmol/LMlicking memorial hospitaly RepRegen Work Phone: Interpretation and review of laboratory results AbnormalPike Community HospitalJoyhound Work Phone: MethemoglobinNOT REPORTED0 - 1.9 %[facility] Work Phone: ModeNOT REPORTEDPike Community HospitalJoyhound Work Phone: Negative Base Excess, Art4.4 mmol/LHigh0 - 2 mmol/L [facility] Work Phone: NOTIFICATIONNOT [facility] HospitalJoy[facility] Work Phone: NOTIFICATION TIMENOT REPORTEDPike Community HospitalJoyhound Work Phone: O2 Device/Flow/%BIPAPMerJoyhound Work Phone: Oxygen saturation in Blood91.1 %Low95 - 98 %[employer] Work Phone: OxyhemoglobinNOT ATYFFNIQ44 - 98 %[employer] Work Phone: pCO2, Art, Temp AdjNOT REPORTEDPike Community HospitalJoyhound Work Phone: pCO2, Xjkfvbqv86.9HighPike Community HospitalJoyhound Work Phone: peep/CpapNOT REPORTEDPike Community HospitalJoyhound Work Phone: pH, Art, Temp AdjNOT REPORTEDMerIzenda, Inc. Health Work Phone: pH, Arterial7.272LowMercy Health Work Phone: pO2, Art, Temp AdjNOT REPORTEDMerIzenda, Inc. Health Work Phone: pO2, Gntyytsn64.5LowMerIzenda, Inc. Health Work Phone: positive Base Excess, ArtNOT REPORTED0 - 2 mmol/LMercy Health Work Phone: pSVNOT REPORTEDMerIzenda, Inc. Health Work Phone: pt Temp37.0[facility] Work Phone: pt. PositionNOT REPORTEDMerIzenda, Inc. Health Work Phone: respiratory rate16 /minMerIzenda, Inc. Health Work Phone: sample SiteRight Brachial ArteryMerJoyhound Work Phone: set RateNOT REPORTEDMerIzenda, Inc. Health Work Phone: Text for RespiratoryNOT REPORTEDMerIzenda, Inc. Health Work Phone: Total HbNOT GBSQJBSC46 - 16 g/dlMerJoyhound Work Phone: Total RateNOT REPORTEDMerIzenda, Inc. Health Work Phone: VTNOT REPORTEDMerIzenda, Inc. Health Work Phone: blood Gas, ArterialOrdered By: Ziggy Smith on [id number] TestPASSMerJoyhound Work Phone: [phone] - 5 %[facility] Work Phone: [phone] Health Work Phone: HCO3 (Bld) [Moles/Vol]25.4 mmol/L22 - 26 mmol/LMercy Health Work Phone: Interpretation and review of laboratory results AbnormalMerJoyhound Work Phone: MethemoglobinNOT REPORTED0 - 1.9 %[facility] Work Phone: ModeNOT REPORTEDMerIzenda, Inc. Health Work Phone: Negative Base Excess, Art2.9 mmol/LHigh0 - 2 mmol/L [employer] Work Phone: NOTIFICATIONNOT REPORTEDMerIzenda, Inc. Health Work Phone: NOTIFICATION TIMENOT REPORTEDMerIzenda, Inc. Health Work Phone: O2 Device/Flow/%CannulaMerIzenda, Inc. Health Work Phone: Oxygen saturation in Blood90.9 %Low95 - 98 %[employer] Work Phone: OxyhemoglobinNOT GOKDJEBT37 - 98 %[employer] Work Phone: [phone], Art, Temp AdjNOT REPORTEDMerIzenda, Inc. Health Work Phone: sGA2, Dmdjxabs48.5HighMerIzenda, Inc. Health Work Phone: [phone]/CpapNOT REPORTEDMerIzenda, Inc. Health Work Phone: pH, Art, Temp AdjNOT REPORTEDMerIzenda, Inc. [facility] Work Phone: pH, Arterial7.255LowMerIzenda, Inc. Health Work Phone: qE1, Art, Temp AdjNOT REPORTEDMerIzenda, Inc. [facility] Work Phone: kD0, Dbkjnwgg46.5LowMerIzenda, Inc. Health Work Phone: [phone] Base Excess, ArtNOT REPORTED0 - 2 mmol/LMercy Health Work Phone: PSVNOT REPORTEDMerIzenda, Inc. Health Work Phone: Pt Temp37.0[facility] Work Phone: Pt. PositionNOT REPORTEDMerIzenda, Inc. Health Work Phone: Respiratory RateNOT REPORTEDMerIzenda, Inc. Health Work Phone: [phone] SiteRight Brachial ArteryMerIzenda, Inc. Health Work Phone: Set RateNOT REPORTEDMerIzenda, Inc. Health Work Phone: Text for RespiratoryNOT REPORTEDCrowdZone Phone: Total HbNOT YFNNLEMO47 - 16 g/dlCrowdZone Phone: Total RateNOT REPORTEDCrowdZone Phone: VTNOT REPORTEDCrowdZone Phone: cBC Auto DifferentialOrdered By: Gordo De Santiago on 16-17-8342Inilchnd Eos #0.00[facility] HospitalAcc[facility] Phone: absolute Immature Granulocyte0.00P[facility] HospitalAcc[facility]c Phone: absolute Lymph #0.80LowCrowdZone Phone: absolute Nelson #0.00LowCrowdZone Phone: basophils (Bld) [#/Vol]0.00 10*3/uLPike Community HospitalAccelitec Phone: basophils/100 WBC (Bld)0 %0 - 2 %C[employer] Phone: differential TypeNOT REPORTEDCrowdZone Phone: eosinophils/100 WBC (Bld)0 %Low1 - 4 %[employer] Phone: erythrocyte distribution width (RBC) [Ratio]14.3 %11.8 - 14.4 %[employer] Phone: Hematocrit (Bld) [Volume fraction]46.2 %36.3 - 47.1 % [employer] Phone: Hemoglobin (Bld) [Mass/Vol]14.3 g/dL11.9 - 15.1 g/dL [employer] Phone: Immature granulocytes/100 WBC (Bld)0 %0Crowd[employer] Phone: Interpretation and review of laboratory results AbnormalCrowdZone Phone: Lymphocytes/100 WBC (Bld)5 %Low24 - 43 %[employer] Work Phone: MCH (RBC) [Entitic mass]28.9 pg25.2 - 33.5 pgPike Community HospitalAccelitec Phone: MCHC (RBC) [Mass/Vol]31.0 g/dL28.4 - 34.8 g/dLPike Community HospitalAccelitec Phone: MCV (RBC) [Entitic vol]93.5 fL82.6 - 102.9 fLPike Community HospitalAccelitec Phone: Monocytes/100 WBC (Bld)0 %Low3 - 12 %C[employer] Phone: Morphology Emmett (Bld) [Interp]NormalPike Community HospitalAccelitec Phone: NRBC Automated0.00.0 per 100 WBCPike Community HospitalAccelitec Phone: platelet EstimateNOT REPORTEDPike Community HospitalAccelitec Phone: platelet mean volume (Bld) [Entitic vol]9.6 fL8.1 - 13.5 fLPike Community HospitalAccelitec Phone: Platelets (Bld) [#/Vol]208 10*3/uLPike Community HospitalAccelitec Phone: RBC (Bld) [#/Vol]4.94 10*6/uL3.95 - 5.11 m/MifflinburgAccelitec Phone: RBC morphology finding Nom (Bld)NOT REPORTEDPike Community HospitalAccelitec Phone: Segmented neutrophils/100 WBC (Bld)95 %High36 - 65 % [employer] Phone: Segs Nlqoeszt19.10HighPike Community HospitalAccelitec Phone: WBC (Bld) [#/Vol]15.9 10*3/uLLogan Regional Medical CenterCrowdZone Phone: WBC MorphologyNOT REPORTEDMerJoyhound Work Phone: comprehensive Metabolic PanelOrdered By: Gordo De Santiago on 98-11-0847Mecvwog [Mass/Vol]3.6 g/dL3.5 - 5.2 g/dLMercy Health Lorain Hospital [employer] Phone: Llbumin/Globulin [Mass ratio]1.1 {ratio}[facility] RepRegen Work Phone: TLP [Catalytic activity/Vol]86 U/L35 - 104 U/LMercy RepRegen Work Phone: WLT [Catalytic activity/Vol]10 U/L5 - 33 U/LMlicking memorial hospitaly RepRegen Work Phone: Union gap [Moles/Vol]12 mmol/L9 - 17 mmol/LMercy RepRegen Work Phone: XST [Catalytic activity/Vol]10 U/L<32MerJoyhound Work Phone: Dilirubin [Mass/Vol]0.24 mg/dLLow0.3 - 1.2 mg/dLMercy Health Lorain Hospital [employer] Phone: bun/Cre Hstwi40KdtxBmhzw Health Work Phone: Ralcium [Mass/Vol]8.7 mg/dL8.6 - 10.4 mg/dLMercy Health Lorain Hospital [employer] Phone: Ihloride [Moles/Vol]100 mmol/L98 - 107 mmol/LMercy RepRegen Work Phone: YO2 [Moles/Vol]25 mmol/L20 - 31 mmol/LMercy RepRegen Work Phone: Kreatinine [Mass/Vol]0.41 mg/dLLow0.5 - 0.9 mg/dLPike Community HospitalAccelitec Phone: GFR >60>60 mL/minPike Community HospitalJoyhound Work Phone: GFR CommentMer RepRegen Work Phone: comment on above:Average GFR for 50-59 years old: 93 mL/min/1.73sq m Chronic Kidney Disease: <60 mL/min/1.73sq m Kidney failure: <15 mL/min/1.73sq m eGFR calculated using average adult body mass. Additional eGFR calculator available at: http://www.Perpetuelle.com/multiple_crcl_2012.htm GFR Non->60>60 mL/minPike Community HospitalAccelitec Phone: GFR StagingPike Community HospitalAccelitec Phone: comment on above:Stage 1: Some kidney damage normal GFR Stage 2: Mild kidney damage GFR 60-89 Stage 3: Moderate kidney damage GFR 30-59 Stage 4: Severe kidney damage GFR 15-29 Stage 5: Severe kidney damage GFR <15 ESRD - chronic treatment by dialysis or transplant Glucose [Mass/Vol]208 mg/nCHtnp56 - 99 mg/dLPike Community HospitalAccelitec Phone: Interpretation and review of laboratory results AbnormalPike Community HospitalAccelitec Phone: potassium [Moles/Vol]4.1 mmol/L3.7 - 5.3 mmol/LMlicking memorial hospitaly RepRegen Work Phone: protein [Mass/Vol]6.9 g/dL6.4 - 8.3 g/dLPike Community HospitalAccelitec Phone: sodium [Moles/Vol]137 mmol/L135 - 144 mmol/LMlicking memorial hospitaly RepRegen Work Phone: Urea nitrogen [Mass/Vol]12 mg/dL6 - 20 mg/dLPike Community HospitalAccelitec Phone: Glucose, Whole BloodOrdered By: Gordo De Santiago on 83-31-0024Riygalq [Mass/Vol]214 mg/iJIhjj86 - 100 mg/dLPike Community HospitalAccelitec Phone: Interpretation and review of laboratory results AbnormalPike Community HospitalAccelitec Phone: lactic acid, plasmaOrdered By: Oliva Tristan on 62-18-1826Nptrsbj [Moles/Vol]1.2 mmol/L0.5 - 2.2 mmol/LMlicking memorial hospitaly RepRegen Work Phone: lactic Acid, Whole BloodNOT REPORTED0.7 - 2.1 mmol/L [facility] RepRegen Work Phone: basic Metabolic Panel w/ Reflex to MGOrdered By: Albert Ibrahim on 73-40-8588Gnvdt gap [Moles/Vol]13 mmol/L9 - 17 mmol/LMlicking memorial hospitaly RepRegen Work Phone: bun/Cre Wdist22HhmvRmiuv Health Work Phone: calcium [Mass/Vol]9.0 mg/dL8.6 - 10.4 mg/dLPike Community HospitalAccelitec Phone: chloride [Moles/Vol]94 mmol/LLow98 - 107 mmol/LMlicking memorial hospitaly [employer] Phone: cO2 [Moles/Vol]25 mmol/L20 - 31 mmol/LMlicking memorial hospitalSenseg Work Phone: creatinine [Mass/Vol]0.47 mg/dLLow0.5 - 0.9 mg/dLPike Community HospitalAccelitec Phone: GFR >60>60 mL/minPike Community HospitalAccelitec Phone: GFR CommentPike Community HospitalAccelitec Phone: comment on above:Average GFR for 50-59 years old: 93 mL/min/1.73sq m Chronic Kidney Disease: <60 mL/min/1.73sq m Kidney failure: <15 mL/min/1.73sq m eGFR calculated using average adult body mass. Additional eGFR calculator available at: http://www.Sumavisos.Stukent/multiple_crcl_2012.htm GFR Non->60>60 mL/minPike Community HospitalAccelitec Phone: GFR StagingPike Community HospitalAccelitec Phone: comment on above:Stage 1: Some kidney damage normal GFR Stage 2: Mild kidney damage GFR 60-89 Stage 3: Moderate kidney damage GFR 30-59 Stage 4: Severe kidney damage GFR 15-29 Stage 5: Severe kidney damage GFR <15 ESRD - chronic treatment by dialysis or transplant Glucose [Mass/Vol]160 mg/oVCtgc93 - 99 mg/dLCrowdZone Phone: Interpretation and review of laboratory results AbnormalPike Community HospitalAccelitec Phone: potassium [Moles/Vol]3.8 mmol/L3.7 - 5.3 mmol/LMScoreGrid Phone: sodium [Moles/Vol]132 mmol/KXzd765 - 144 mmol/LMlicking memorial hospitaly [employer] Phone: Urea nitrogen [Mass/Vol]13 mg/dL6 - 20 mg/dLPike Community HospitalAccelitec Phone: cBC Auto DifferentialOrdered By: Albert Ibrahim on 25-46-1341Rvhgkeys Eos #0.17[facility] HospitalAcc[facility] Phone: absolute Immature Granulocyte0.13P[facility] HospitalAcc[facility] Phone: absolute Lymph #1.06LowPike Community HospitalAccelitec Phone: absolute Nelson #1.00[facility]Acc[facility] Phone: basophils (Bld) [#/Vol]0.05 10*3/uLPike Community HospitalAccelitec Phone: basophils/100 WBC (Bld)0 %0 - 2 %[employer] Phone: differential TypeNOT REPORTEDMerAccelitec Phone: eosinophils/100 WBC (Bld)1 %1 - 4 %[employer] Phone: erythrocyte distribution width (RBC) [Ratio]14.4 %11.8 - 14.4 %[employer] Phone: Hematocrit (Bld) [Volume fraction]45.6 %36.3 - 47.1 % [employer] Phone: Hemoglobin (Bld) [Mass/Vol]14.5 g/dL11.9 - 15.1 g/dL [employer] Phone: Immature granulocytes/100 WBC (Bld)1 %Nntp2CstgfAccelitec Phone: Interpretation and review of laboratory results AbnormalPike Community HospitalAccelitec Phone: Lymphocytes/100 WBC (Bld)6 %Low24 - 43 %[employer] Phone: MCH (RBC) [Entitic mass]29.6 pg25.2 - 33.5 pgPike Community HospitalAccelitec Phone: MCHC (RBC) [Mass/Vol]31.8 g/dL28.4 - 34.8 g/dLPike Community HospitalAccelitec Phone: MCV (RBC) [Entitic vol]93.1 fL82.6 - 102.9 fLPike Community HospitalAccelitec Phone: Monocytes/100 WBC (Bld)5 %3 - 12 %[employer] Phone: NRBC Automated0.00.0 per 100 WBCPike Community HospitalAccelitec Phone: platelet EstimateNOT REPORTEDPike Community HospitalAccelitec Phone: Flatelet mean volume (Bld) [Entitic vol]9.5 fL8.1 - 13.5 fLPike Community HospitalAccelitec Phone: Platelets (Bld) [#/Vol]216 10*3/uLPike Community HospitalAccelitec Phone: RBC (Bld) [#/Vol]4.90 10*6/uL3.95 - 5.11 m/[employer]ro Phone: RBC morphology finding Nom (Bld)NOT REPORTEDPike Community HospitalAccelitec Phone: segmented neutrophils/100 WBC (Bld)87 %High36 - 65 % [employer] Phone: segs Rdzydexr15.02Log[facility] Medical CenterCrowdZone Phone: WBC (Bld) [#/Vol]18.4 10*3/uLLogan Regional Medical CenterCrowdZone Phone: WBC MorphologyNOT REPORTEDCrowdZone Phone: cT CHEST W CONTRASTOrdered By: Albert Ibrahim on 34-16-6340Zna/increased bilateral ground-glass infiltrates. Differential considerations include infectious, inflammatory, and neoplastic etiologies. Prominent pulmonary artery may reflect pulmonary artery hypertension. This may account for the right hilar fullness as no distinct mass or pathologic lymphadenopathy is noted.[employer] Phone: eXAMINATION: CT OF THE CHEST WITH [...] is larger than the ascending aorta and tqburtgj34 mm in diameter. Calcific coronary artery disease noted. No hilar mass. Right and left pulmonary arteries appear prominent bilaterally. Lungs/pleura: Bilateral patchy ground-glass infiltrates. Right middle lobe consolidation. Upper Abdomen: Normal Soft Tissues/Bones: YouTab Phone: edi, [facility] Incoming Radiant Results From [employer] - 04/21/2019 8:41 PM EST EXAMINATION: CT [...] distinct mass or pathologic lymphadenopathy is noted. [employer] Phone: Hepatic function panelOrdered By: Wesly Whitten on 55-15-6121Enjdlyi [Mass/Vol]3.9 g/dL3.5 - 5.2 g/dLCrowdZone Phone: albumin/Globulin [Mass ratio]1.3 {ratio}[employer] Phone: aLP [Catalytic activity/Vol]95 U/L35 - 104 U/LMScoreGrid Phone: aLT [Catalytic activity/Vol]10 U/L5 - 33 U/[employer] Touch [employer]MR Phone: aST [Catalytic activity/Vol]13 U/L<32CrowdZone Phone: bilirubin [Mass/Vol]0.33 mg/dL0.3 - 1.2 mg/dLCrowdZone Phone: bilirubin, IndirectCANNOT BE CALCULATED0 - 1 mg/dL [employer] Phone: bilirubin.indirect [Mass/Vol]mg/dL<0.31 mg/dLMercy Health Lorain Hospital [facility] Work Phone: GlobulinNOT REPORTED1.5 - 3.8 g/dLMercy Health Work Phone: protein [Mass/Vol]6.9 g/dL6.4 - 8.3 g/dLMercy Health Lorain Hospital Health Work Phone: lactic AcidOrdered By: Albert Ibrahim on 04-21-2019 Lactate [Moles/Vol]0.6 mmol/L0.5 - 2.2 mmol/LMercy Health Work Phone: [phone]-KGBEjszazy By: Wesly Whitten on [phone] Coag (PPP) [Relative time]1.0 {INR}[facility] RepRegen Work Phone: pT Coag (PPP) [Time]10 sMercy Health Work Phone: UrinalysisOrdered By: Wesly Whitten on 04-21-2019 Bilirubin UrineNegativeNEGATIVEMerIzenda, Inc. Health Work Phone: color, UAYELLOWYELLOWMer Health Work Phone: Glucose, UrNegativeNEGATIVEMercy Health Work Phone: Interpretation and review of laboratory results AbnormalMercy Health Lorain Hospital Health Work Phone: Ketones Ql (U)NegativeNEGATIVEMercy Health Work Phone: leukocyte esterase Test strip Ql (U)NegativeNEGATIVE [facility] Work Phone: Nitrite, UrineNegativeNEGATIVEMercy Health Work Phone: pH, UA6.5Mer Health Work Phone: protein, UANegativeNEGATIVEMercy Health Work Phone: specific [place], UA<1.005LowMer Health Work Phone: Turbidity UACLEARCLEARMercy Health Lorain Hospital [employer] Phone: Urinalysis CommentsNOT REPORTEDPike Community HospitalAccelitec Phone: Urine HgbNegativeNEGATIVEMercy Health Lorain Hospital [employer] Phone: Urobilinogen, UrineNormalNormalMercy Health [facility] Hospital [employer] Phone: XR CHEST STANDARD (2 VW)Ordered By: Albert Ibrahim on 46-38-5825Jzy right hilar fullness. Mild edema. Recommend CT chest with IV contrast.[employer] Phone: eXAMINATION: TWO XRAY VIEWS OF THE CHEST 04/21/2019 6:14 pm COMPARISON: January 13, 2019 HISTORY: ORDERING SYSTEM PROVIDED HISTORY: cough TECHNOLOGIST PROVIDED HISTORY: cough FINDINGS: New right hilarfullness. Mild edema. Small bilateral pleural effusions. Heart and mediastinum normal. Bony thorax normal.[employer] Phone: edi, pn Incoming Radiant Results From [employer] - 04/21/2019 6:21 PM EST EXAMINATION: TWO XRAY VIEWS OF THE CHEST 04/21/2019 6:14 pm COMPARISON: January 13, 2019 HISTORY: ORDERING SYSTEM PROVIDED HISTORY: cough TECHNOLOGIST PROVIDED HISTORY: cough FINDINGS: New right hilar fullness. Mild edema. Small bilateral pleural effusions. Heart and mediastinum normal. Bony thorax normal. IMPRESSION: New right hilar fullness. Mild edema. Recommend CT chest with IV contrast. [employer] Phone: basic Metabolic Panel w/ Reflex to MGOrdered By: Harish Sebastian on 13-19-2620Xdrws gap [Moles/Vol]12 mmol/L9 - 17 mmol/LMlicking memorial hospitaly [employer]Media Phone: bun/Cre Qgacq03CzryQhidy Health Work Phone: calcium [Mass/Vol]9.2 mg/dL8.6 - 10.4 mg/dLPike Community HospitalAccelitec Phone: chloride [Moles/Vol]95 mmol/LLow98 - 107 mmol/LMRETAIL PRONet Orange Phone: cO2 [Moles/Vol]28 mmol/L20 - 31 mmol/LMScoreGrid Phone: creatinine [Mass/Vol]0.66 mg/dL0.5 - 0.9 mg/dLPike Community HospitalAccelitec Phone: GFR >60>60 mL/minPike Community HospitalAccelitec Phone: GFR CommentPike Community HospitalAccelitec Phone: comment on above:Average GFR for 50-59 years old: 93 mL/min/1.73sq m Chronic Kidney Disease: <60 mL/min/1.73sq m Kidney failure: <15 mL/min/1.73sq m eGFR calculated using average adult body mass. Additional eGFR calculator available at: http://www.Perpetuelle.com/multiple_crcl_2012.htm GFR Non->60>60 mL/minPike Community HospitalAccelitec Phone: GFR StagingPike Community HospitalAccelitec Phone: comment on above:Stage 1: Some kidney damage normal GFR Stage 2: Mild kidney damage GFR 60-89 Stage 3: Moderate kidney damage GFR 30-59 Stage 4: Severe kidney damage GFR 15-29 Stage 5: Severe kidney damage GFR <15 ESRD - chronic treatment by dialysis or transplant Glucose [Mass/Vol]105 mg/vNSsjh08 - 99 mg/dLPike Community HospitalAccelitec Phone: Interpretation and review of laboratory results AbnormalPike Community HospitalAccelitec Phone: potassium [Moles/Vol]4.6 mmol/L3.7 - 5.3 mmol/LMlicking memorial hospitaly RepRegen Work Phone: sodium [Moles/Vol]135 mmol/L135 - 144 mmol/LMRETAIL PROy RampedMedia Phone: Urea nitrogen [Mass/Vol]15 mg/dL6 - 20 mg/dLPike Community HospitalAccelitec Phone: cBC Auto DifferentialOrdered By: Harish Sebastian on 40-40-5870Tmhklhbx Eos #0.50HighPike Community HospitalAccelitec Phone: absolute Immature Granulocyte0.03P[facility] HospitalAcc[facility]c Phone: absolute Lymph #2.66[facility] HospitalAcc[facility] Phone: absolute Nelson #0.65[facility] HospitalAcc[facility]c Phone: basophils (Bld) [#/Vol]0.08 10*3/uLPike Community HospitalAccelitec Phone: basophils/100 WBC (Bld)1 %0 - 2 %CrowdZone Phone: differential TypeNOT REPORTEDPike Community HospitalAccelitec Phone: eosinophils/100 WBC (Bld)5 %High1 - 4 %C[employer] Phone: erythrocyte distribution width (RBC) [Ratio]14.0 %11.8 - 14.4 %C[employer] Phone: Hematocrit (Bld) [Volume fraction]48.8 %High36.3 - 47.1 %Crowd[employer] Phone: Hemoglobin (Bld) [Mass/Vol]15.3 g/tSFffu04.9 - 15.1 g/dLPike Community HospitalAccelitec Phone: Immature granulocytes/100 WBC (Bld)0 %0P[facility] HospitalAccelitec Phone: Interpretation and review of laboratory results AbnormalPike Community HospitalAccelitec Phone: lymphocytes/100 WBC (Bld)25 %24 - 43 %C[employer] Phone: MCH (RBC) [Entitic mass]29.4 pg25.2 - 33.5 pgPike Community HospitalAccelitec Phone: MCHC (RBC) [Mass/Vol]31.4 g/dL28.4 - 34.8 g/dLCrowdZone Phone: MCV (RBC) [Entitic vol]93.8 fL82.6 - 102.9 fLCrowdZone Phone: Monocytes/100 WBC (Bld)6 %3 - 12 %C[employer] Phone: NRBC Automated0.00.0 per 100 WBCCrowdZone Phone: platelet EstimateNOT REPORTEDCrowdZone Phone: platelet mean volume (Bld) [Entitic vol]9.3 fL8.1 - 13.5 fLCrowdZone Phone: Platelets (Bld) [#/Vol]275 10*3/uLCrowdZone Phone: RBC (Bld) [#/Vol]5.20 10*6/uLHigh3.95 - 5.11 m/uLCrowdZone Phone: rBC morphology finding Nom (Bld)NOT REPORTEDPike Community HospitalAccelitec Phone: segmented neutrophils/100 WBC (Bld)63 %36 - 65 %Crowd[employer] Phone: segs Absolute6.54CrowdZone Phone: WBC (Bld) [#/Vol]10.5 10*3/Borro Phone: WBC MorphologyNOT REPORTEDCrowdZone Phone: cT Head WO ContrastOrdered By: Harish Sebastian on 95-87-0178Ri acute intracranial abnormality.Crowd[employer] Phone: eXAMINATION: CT OF THE HEAD WITHOUT [...] abnormality of the visualized skull or soft tissues.Crowd[employer] Phone: edi, [facility] Incoming Radiant Results From [employer] - 04/12/2019 2:07 PM EST EXAMINATION: CT [...] soft tissues. IMPRESSION: No acute intracranial abnormality. CrowdZone Phone: No Panel InformationOrdered By: Harish Sebastian on 36-14-3684Mxscxsml spine: 1. Mild to moderate degenerative changes [...] [facility]MC joint. 3. No acute fracture or dislocation.Crowd[employer] Phone: eXAMINATION: THREE XRAY VIEWS OF THE [...] in the capitate. Atherosclerotic calcification of the vasculature.[employer] Work Phone: eroseann, Bridgette Incoming Radiant Results From [employer] - 04/12/2019 11:50 AM EST EXAMINATION: THREE [...] joint. 3. No acute fracture or dislocation. CrowdZone Phone: TroponinOrdered By: Harish Sebastian on 04-12-2019 Troponin InterScoreGrid Phone: comment on above:Reference Range: <0.03 Within reference range. 0.03-0.09 Possible myocardial damage. Repeat at appropriate intervals to rule out chronic elevation. >= 0.10 Indicative of myocardial damage. Patients with high levels of Biotin oral intake (i.e >5mg/day) may have falsely decreased Troponin T levels. Samples collected within 8 hours of biotin intake may require additional information for diagnosis. Troponin T<0.03<0.03 ng/mLPike Community HospitalAccelitec Phone: comment on above:Troponin T results cannot be compared to Troponin-I results.Troponin, High SensitivityNOT REPORTED0 - 14 ng/LMScoreGrid Phone: Neurosurgery Office/Clinic Noteon 03-02-2019 Neurosurgery Office/Clinic NoteChief Complaint patient states back History of Present Illness Jonatan is here to follow up on low back coupled with bilateral leg pain. There is subjective weakness. There is paresthesia in both feet as well as stabbing pain. She reports symptoms consistent with claudication. She completed imaging at [facility], but did not bring this with her [...] treatments: PM, water therapy (3 years ago, [facility], [facility]), home exercise, [...] DM, unknown control 5. hx of CAD, VA and cardiac stenting 6. hx of prior blood clot (abdominal) with vascular graft 7. tobacco use 8. plavix use Plan: 1. referral to tertiary medical center, she prefers [facility] 2. f/u here as needed we reviewed the lumbar MRI report/findings in office, no imaging available to review at today's visit I have reviewed her case with Dr. Rivers, recommendation for referral to tertiary [place] [facility] secondary to surgical risk we discussed locations, Jonatan would like referral to [place]- this was initiated at today's visit she [...] Exercise frequency: 1-2 times/week. Exercise type: Swimming, [place] Forevery-Water Therapy-1 year ago-3-5 sessions did not help [...] signed by Deion Fritz CNP 03/02/19 11:27 ESTNormPrem[facility] Provider Letteron [phone] Letter Vahid Nagy CNP Re: Jonatan Sher Date of Visit: 03/02/2019 Dear Vahid Nagy, Thank you for referring Jonatan to my office. Attached you will find my office note. Please let me know if you have any questions or concerns. Sincerely, Deion Fritz CNP [facility] [place] [address] The following document(s) were included in the letter: March 02, 2019 11:14:11 EST - (03/02/2019) Neurosurgery Office Visit Note NormalMercy Health St. Charles HospitalCBC auto differentialon [id number] (Bld) [#/Vol]0.06 10*3/[facility] [place], KYBasophils/100 WBC (Bld)1 %0 - 2 % [facility], KYDifferential TypeNOT REPORTEDWexner Medical Center [place], KYEosinophils (Bld) [#/Vol]0.34 10*3/[facility] [place], KYEosinophils/100 WBC (Bld)4 %1 - 4 %[facility]- [place], KYErythrocyte distribution width (RBC) [Ratio]14.5 %High11.8 - 14.4 %[facility], CARLOSHematocrit (Bld) [Volume fraction]46.3 %36.3 - 47.1 %[facility] [place], CARLOSHemoglobin (Bld) [Mass/Vol]14.9 g/dL11.9 - 15.1 g/dLWexner Medical Center [place], KSImmature granulocytes (Bld) [#/Vol]1 %[facility]uax5WcowaWilson [address] [facility]- [place], [place] Immature granulocytes (Bld) [#/Vol]0.05 10*3/[facility]- [place], [place] Interpretation and review of laboratory resultsAbnormalCommunity Regional Medical Center, [place] Lymphocytes (Bld) [#/Vol]2.65 10*3/[facility]- [place], KSLymphocytes/100 WBC (Bld)28 %24 - 43 %[facility], KSMCH (RBC) [Entitic mass]29.9 pg25.2 - 33.5 pgCommunity Regional Medical Center, KSMCHC (RBC) [Mass/Vol]32.2 g/dL28.4 - 34.8 g/dLCommunity Regional Medical Center, KSMCV (RBC) [Entitic vol]92.8 fL82.6 - 102.9 fLCommunity Regional Medical Center, [place] Monocytes (Bld) [#/Vol]0.59 10*3/[facility]- [place], CARLOSMonocytes/100 WBC (Bld)6 %3 - 12 %[facility], CARLOSPlatelet mean volume (Bld) [Entitic vol]9.6 fL8.1 - 13.5 fLCommunity Regional Medical Center, KYPlatelets (Bld) [#/Vol]NOT REPORTEDCommunity [facility], KYPlatelets (Bld) [#/Vol]265 10*3/[facility]- [place], KYRBC (Bld) [#/Vol]4.99 10*6/uL3.95 - 5.11 m/[facility]- [place], KSRBC morphology finding Nom (Bld)NOT REPORTEDCommunity [facility] Medical Center, KSSegmented neutrophils/100 WBC (Bld)60 %36 - 65 % [facility], KYSegs Absolute5.[address]- [place], KYWBC (Bld) [#/Vol]9.6 10*3/uLCommunity Regional Medical Center, KYWBC (Bld) [#/Vol]0.0 10*3/uL0.0 per 100 WBCCommunity Regional Medical Center, KYWBC MorphologyNOT REPORTEDCommunity [facility] Medical Center, KYCTA ABDOMINAL AORTA W BILAT RUNOFF W CONTRASTon [id number], Mhpn Incoming Radiant Results From Alumnize/Pacs - 02/23/2019 7:00 PM EST EXAMINATION: CTA [...] arteries. Circumferential atherosclerotic plaque identified. The distal [place] abdominal aorta is completely occluded, as is the proximal aspect of the common iliac arteries bilaterally. There is reconstitution of flow within the salt river common iliac artery bifurcation, with flow into the internal and external iliac arteries bilaterally. There is also an aorto bi femoral bypass, within asked most this to the common femoral arteries bilaterally. There was a previous fem-fem bypass graft which has failed. Outflow: Right lower extremity: The salt river SFA is completely occluded. 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 [facility] CenterAmy acute intra aortic thrombus is identified. 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 Circumferential atherosclerotic plaque identified. The distal salt river abdominal aorta is completely occluded, as is the proximal aspect of the common iliac arteries bilaterally. There is reconstitution of flow within the salt river common iliac artery bifurcation, with flow into the internal and external iliac arteries bilaterally. There is also an aorto bi femoral bypass, within asked most this to the common femoral arteries bilaterally. There was a previous fem- fem bypassgraft which has failed. Outflow: Right lower extremity: The [place] river SFA is completely occluded. The aortofemoral anastomosis [...] artery as it crosses over the distal tibia.[facility]- [place], [place] Comprehensive metabolic panelon [id number] [Mass/Vol]3.7 g/dL3.5 - 5.2 g/dLWilson [address] Hospital- [place], KYAlbumin/Globulin [Mass ratio]1.1 {ratio}[facility]- [place], KYALP [Catalytic activity/Vol]85 U/L35 - 104 U/LMerc Health- [place], KYALT [Catalytic activity/Vol]13 U/L5 - 33 U/LMsycamore medical center Health- [place], KYAnion gap [Moles/Vol]12 mmol/L9 - 17 mmol/LMsycamore medical center Health- [place], KYAST [Catalytic activity/Vol]13 U/L<32Mer Health- [place], KYBilirubin Ql (U)<0.10Low0.3 - 1.2 mg/dLMercy Health [facility]- [place], KYBun/Cre Hvfon42NqwzLcssd Health- [place], KYCalcium [Mass/Vol]9.1 mg/dL8.6 - 10.4 mg/dLMercy Health [facility]- [place], KYChloride [Moles/Vol]100 mmol/L98 - 107 mmol/LMsycamore medical center Health- [place], KYCO2 [Moles/Vol]27 mmol/L20 - 31 mmol/L [facility]- [place], KYCreatinine [Mass/Vol]0.53 mg/dL0.5 - 0.9 mg/dLWilson [address] [facility]- [place], KYGFR >60>60 mL/minMercy Health Lor[facility]- [place], KYGFR Non->60>60 mL/minMercy Health Lorain Hospital [facility]- [place], KYGlucose [Mass/Vol]139 mg/zGJyxw92 - 99 mg/dLWilson [address] [facility]- [place], KYInterpretation and review of laboratory resultsAbnormal [facility]- [place], KYPotassium [Moles/Vol]3.8 mmol/L3.7 - 5.3 mmol/LMsycamore medical center Health- [place], KYProtein [Mass/Vol]7.0 g/dL6.4 - 8.3 g/dLMercy Health [facility]- [place], KYSodium [Moles/Vol]139 mmol/L135 - 144 mmol/LMsycamore medical center Health- [place], KYUrea nitrogen [Mass/Vol]14 mg/dL6 - 20 mg/dLCommunity Regional Medical Center, KYLipaseon [id number] [Catalytic activity/Vol]20 U/L13 - 60 U/LMercBaptist Children's Hospital, CARLOSMRI LUMBAR SPINE WO CONTRASTon . Degenerative changes in the lumbar spine lead severe spinal canal stenosis and moderate bilateral neural foraminal narrowing at L4- L5. 2. Moderate to severe spinal canal stenosis and moderate right neural foraminal narrowing at L5-S1. 3. Possible thrombus in the abdominal aorta. Recommend CTA ofthe abdomen and pelvis.[facility], CARLOSEXAMINATION: MRI OF THE LUMBAR SPINE WITHOUT [...] faxed to the office of the licensed caregiver.[facility] Medical CenterAudelia Mhpn Incoming Radiant Results From Alumnize/AdviseHub - 02/23/2019 1:49 PM EST EXAMINATION: MRI [...] Recommend CTA of the abdomen and pelvis. [employer] CATeach4Life Consulting LLMetabolic Panelon [id number]/1.73 sq M predicted among non-blacks MDRD (S/P/Bld) [Vol rate/Area][employer] CASocial DJ CARLOSComment on above: Average GFR for 50-59 years old: 93 mL/min/1.73sq m Chronic Kidney Disease: <60 mL/min/1.73sq m Kidney failure: <15 mL/min/1.73sq m eGFR calculated using average adult body mass. Additional eGFR calculator available at: http://www.Perpetuelle.com/multiple_crcl_2012.htm Stage 1: Some kidney damage normal GFR Stage 2: Mild kidney damage GFR 60-89 Stage 3: Moderate kidney damage GFR 30-59 Stage 4: Severe kidney damage GFR 15-29 Stage 5: Severe kidney damage GFR <15 ESRD - chronic treatment by dialysis or transplant Protime-INRon [id number] Coag (PPP) [Relative time]1.0 {INR}[facility]- [place], KYPT Coag (PPP) [Time]10 sMAkron Children's Hospital [place], KYTroponinon [id number] I.cardiac [Mass/Vol][facility] [place], KYComment on above:Reference Range: <0.03 Within reference range. 0.03-0.09 Possible myocardial damage. Repeat at appropriate intervals to rule out chronic elevation. >= 0.10 Indicative of myocardial damage. Patients with high levels of Biotin oral intake (i.e >5mg/day) may have falsely decreased Troponin T levels. Samples collected within 8 hours of biotin intake may require additional information for diagnosis. Troponin T.cardiac [Mass/Vol]ug/L<0.03 ng/mLCommunity Regional Medical Center, KYComment on above:Troponin T results cannot be compared to Troponin-I results.Troponin, High SensitivityNOT REPORTED0 - 14 ng/LMercy Health- [place], KYUrinalysis with microscopicon [id number], UANOT REPORTEDNoneMey Health- [place], [place] Bacteria, UANOT REPORTEDNoneMercy Health- [place], KYBilirubin UrineNegativeNEGATIVE [facility]- [place], KYCasts UANOT REPORTED/LPFMercy Health- [place], KYColor, UAYELLOW YELLOWPike Community Hospitalcy Health- [place], KYCrystals UANOT REPORTEDNone /HPFMercy Health- [place], [place] Epithelial Cells UANoneMey Health- [place], KYGlucose, UrNegativeNEGATIVEMercy Health [facility]- [place], KYInterpretation and review of laboratory resultsAbnormalMercy Health- [place], KYKetones Ql (U)NegativeNEGATIVEMercy Health- [place], KYLeukocyte esterase Test strip Ql (U)NegativeNEGATIVEMercy Health- [place], KYMucus, UANOT REPORTEDNoneMercy Health- [place], KYNitrite, UrineNegativeNEGATIVEMercy Health- [place], KYOther Observations UANOT REPORTEDNOT REQ.[facility]- [place], KYpH, UA7.0[facility]- [place], KYProtein (U) [Mass/Vol]NegativeNEGATIVEMercy Health- [place], KYRBC (U) [#/Vol]NoneMercy Health- [place], KYRenal Epithelial, UrineNOT REPORTED0 /HPFMercy Health- [place], KYSpecific [place], UA<1.005LowMercy Health- [place], KYTrichomonas, UA NOT REPORTEDNoneMercy Health- [place], KYTurbidity UACLEARCLEARMercy Health- [place], [place] Urinalysis CommentsNOT REPORTEDMercy Health- [place], KYUrine HgbNegativeNEGATIVE [facility]- [place], KYUrobilinogen, UrineNormalNormalMercy Health- [place], KYWBC, UA NoneMercy Health- [place], KYYeast, UANOT REPORTEDNoneMercy Health- [place], [place]-[facility]- [place], KYNeurosurgery Office/Clinic Noteon [id number] Office/Clinic NoteChief Complaint patient states back History [...] treatments: PM, water therapy (3 years ago, [facility], worse), home exercise, gabapentin, ibuprofen, percocet, [...] DM, unknown control 5. hx of CAD, [place] 6. hx of prior blood clot 7. tobacco use 8. plavix use Plan: 1. MRI lumbar 2. XR lumbar 3. obtain current A1C 4. f/u on completion recommend MRI and XR lumbar with flex ex views, she wishes to obtain in [place] we will obtain A1C info from her [...] Exercise frequency: 1-2 times/week. Exercise type: Swimming, [place] Forevery-Water Therapy-1 year ago-3-5 sessions did not help [...] by Deion Fritz CNP [place] 02/02/19 08:21 ESTNormPremier Health [facility] Provider Letteron [phone] Letter Vahid Nagy CNP [address] [place] [address] Re: Jonatan Olivarez Date of Visit: 01/28/2019 Dear Vahid Nagy, Thank you for referring Jonatan to my office. Attached you will find my office note. Please let me know if you have any questions or concerns. Sincerely, Deion Fritz CNP [facility] [address] [address] The following document(s) were included in the letter: January 28, 2019 10:57:17 EDT - (01/28/2019) Neurosurgery Office Visit Note NormalMercy Health St. Charles HospitalBasic Metabolic Panel w/ Reflex to MGon [id number] gap [Moles/Vol]11 mmol/L9 - 17 mmol/LMercy Health- [place], KYBun/Cre Wneqc96Dfalt Health- [place], KYCalcium [Mass/Vol]9.4 mg/dL8.6 - 10.4 mg/dLMercy Health Lor[facility]- [place], KYChloride [Moles/Vol]103 mmol/L98 - 107 mmol/LMercy Health- [place], [place] CO2 [Moles/Vol]28 mmol/L20 - 31 mmol/LMercy Health- [place], KYCreatinine [Mass/Vol] 0.56 mg/dL0.5 - 0.9 mg/dLPike Community Hospitalcy Health- [place], KYGFR >60>60 mL/min [facility]- [place], KYGFR Non->60>60 mL/minMercy Health Lorain Hospital [facility]- [place], [place] Glucose [Mass/Vol]126 mg/aPXyzf15 - 99 mg/dLMercy Health Lorain Hospital [facility]- [place], KYInterpretation and review of laboratory resultsAbnormalMercy Health [facility]- [place], KYPotassium [Moles/Vol]4.0 mmol/L3.7 - 5.3 mmol/LMercy Health- [place], KYSodium [Moles/Vol]142 mmol/L135 - 144 mmol/LMercy Health- [place], KYUrea nitrogen [Mass/Vol]8 mg/dL6 - 20 mg/dLCommunity Regional Medical Center, KYCBC Auto Differentialon [id number] (Bld) [#/Vol]0.05 10*3/[facility], KYBasophils/100 WBC (Bld)1 %0 - 2 %[facility], KYDifferential TypeNOT REPORTEDCommunity [facility], KYEosinophils (Bld) [#/Vol]0.24 10*3/[facility], KYEosinophils/100 WBC (Bld)3 %1 - 4 %[facility], KYErythrocyte distribution width (RBC) [Ratio]14.5 %High11.8 - 14.4 %[facility], KYHematocrit (Bld) [Volume fraction]45.7 %36.3 - 47.1 %[facility], KYHemoglobin (Bld) [Mass/Vol]14.7 g/dL11.9 - 15.1 g/dLCommunity Regional Medical Center, KYImmature granulocytes (Bld) [#/Vol]0 %0[facility], KYImmature granulocytes (Bld) [#/Vol]10*3/[facility], KYInterpretation and review of laboratory resultsAbnormBellevue Hospital, KYLymphocytes (Bld) [#/Vol]1.16 10*3/[facility], KYLymphocytes/100 WBC (Bld)15 %Low24 - 43 %[facility], KYMCH (RBC) [Entitic mass]29.2 pg25.2 - 33.5 pgCommunity Regional Medical Center, [place] MCHC (RBC) [Mass/Vol]32.2 g/dL28.4 - 34.8 g/dLCommunity Regional Medical Center, KYMCV (RBC) [Entitic vol]90.7 fL82.6 - 102.9 fLCommunity Regional Medical Center, KYMonocytes (Bld) [#/Vol] 0.58 10*3/[facility], KYMonocytes/100 WBC (Bld)7 %3 - 12 %[facility]- [place], CARLOSPlatelet mean volume (Bld) [Entitic vol]9.2 fL8.1 - 13.[address]- [place], CARLOSPlatelets (Bld) [#/Vol]NOT REPORTEDWilson [address] [facility]- [place], KYPlatelets (Bld) [#/Vol]201 10*3/uL[address] Hospital- [place], KYRBC (Bld) [#/Vol]5.04 10*6/uL3.95 - 5.11 m/uLWilson [address] Hospital- [place], CARLOSRBC morphology finding Nom (Bld)NOT REPORTEDCommunity [facility] Medical [facility], CARLOSSegmented neutrophils/100 WBC (Bld)74 %High36 - 65 %[facility] [address] HospitalReal Girls Media Network, CARLOSSegs Absolute5.79[facility], KYWBC (Bld) [#/Vol]0.0 10*3/uL0.[address]- [place], CARLOSWBC (Bld) [#/Vol]7.8 10*3/uLWilson [address] [facility]- [place], KYWBC MorphologyNOT REPORTEDWilson Street [facility]- [place], CARLOSMetabolic Panelon [id number]/1.73 sq M predicted among non-blacks MDRD (S/P/Bld) [Vol rate/Area]Wilson Street HospitalXeris Pharmaceuticals CACARLOSComment on above:Stage 1: Some kidney damage normal [...] body mass. Additional eGFR calculator available at: http://www.Sumavisos.Stukent/multiple_crcl_2012.htm Otheron [id number], Mhpn Incoming Radiant Results From [employer]/Pacs - 01/13/2019 3:55 PM EDT EXAMINATION: THREE [...] relate to a biceps tendon sheath body. [facility], KYEXAMINATION: THREE XRAY VIEWS OF THE CERVICAL [...] may relate to a biceps tendon sheath body.[facility], KY1. Normal cervical spine alignment with no acute abnormality. 2. Multilevel cervical degenerative changes. 3. Stable appearance of the chest with mediastinal/hilar lymphadenopathy. No acute traumaticthoracic abnormality. 4. Normal left shoulder alignment with milder glenohumeral arthropathy. No acute abnormality. 5. 4 mm ossicle of the left proximal arm which may relate to a biceps tendon sheathbody.[facility] Hospitalnip[facility] [id number] I.cardiac [Mass/Vol][place], KYComment on above: Reference Range: <0.03 Within reference range. 0.03-0.09 Possible myocardial damage. Repeat at appropriate intervals to rule out chronic elevation. >= 0.10 Indicative of myocardial damage. Patients with high levels of Biotin oral intake (i.e >5mg/day) may have falsely decreased Troponin T levels. Samples collected within 8 hours of biotin intake may require additional information for diagnosis. Troponin T.cardiac [Mass/Vol]ug/L<0.03 ng/mLCommunity Regional Medical Center, KSComment on above:Troponin T results cannot be compared to Troponin-I results.Troponin, High SensitivityNOT REPORTED0 - 14 ng/LMUniversity Hospitals Geauga Medical Centeroponin I.cardiac [Mass/Vol][facility], KSComment on above:Reference Range: <0.03 Within reference range. [...] ng/LMercy Health- [place], KYUrinalysis, reflex to microscopicon [id number] UrineNegativeNEGATIVEMercy Health- [place], [place] Color, UAYELLOWYELLOWMercy Health- [place], KYGlucose, UrNegativeNEGATIVEMercy Health- [place], KYKetones Ql (U)NegativeNEGATIVEMercy Health- [place], KYLeukocyte esterase Test strip Ql (U)NegativeNEGATIVEMercy Health- [place], KYNitrite, Urine NegativeNEGATIVEMercy Health- [place], KYpH, UA6.0[facility]- [place], KYProtein (U) [Mass/Vol]NegativeNEGATIVEMercy Health- [place], KYSpecific [place], UA1.015[facility]- [place], KYTurbidity UACLEARCLEARMercy Health- [place], KYUrinalysis CommentsNOT REPORTEDMercy Health- [place], KYUrine HgbNegativeNEGATIVEMercy Health- [place], [place] Urobilinogen, UrineNormalNormalMercy Health- [place], KYXR LUMBAR SPINE (2-3 VIEWS)on [id number]: THREE XRAY VIEWS OF THE LUMBAR SPINE [...] bilateral sacroiliac and hip alignment. No acute fracture.[employer]- [place], KYEdi, Mhpn Incoming Radiant Results From Alumnize/AdviseHub - 01/13/2019 3:55 PM EDT EXAMINATION: THREE [...] lumbar spine degenerative disc and joint disease. [facility] KS1. Normal lumbar spine alignment with no acute abnormality. 2. Multilevel lumbar spine degenerativedisc and joint disease.[facility], KSXR SHOULDER LEFT (MIN 2 VIEWS)on [id number] calcific tendinosis of left supraspinatus. Mild degenerative changes of the left glenohumeral joint. Mild degenerative changes of the left acromioclavicular joint.[facility], [place] EXAMINATION: THREE XRAY VIEWS OF THE LEFT SHOULDER 01/12/2019 3:48 pm COMPARISON: Left shoulder radiographs dated 08/03/2017 HISTORY: ORDERING SYSTEM PROVIDED HISTORY: Pain of left upper extremity FINDINGS: Mild calcific tendinosis of left supraspinatus. Mild degenerative changes of the left glenohu meral joint. Mild degenerative changes of the left acromioclavicular joint. Subacromial space is maintained.[facility] Medical CenterAudelia Mhpn Incoming Radiant Results From Alumnize/AdviseHub - 01/12/2019 4:20 PM EDT EXAMINATION: THREE [...] degenerative changes of the left acromioclavicular joint. [facility], KYHematologyon [id number] (Bld) [Mass/Vol]Negative (NEG)Health [facility] Work Phone: Comment on above:Note: Responsible Observer: KLEBER TREJO ([id number])Laboratory - Microbiology and Antimicrobial susceptibilityOrdered By: Vahid Nagy on [id number] identified Cx Nom (Unsp spec)MANYAbnormal (NONE )Health [facility] Work Phone: Comment on above:Note: Responsible Observer: KLEBER TREJO ([id number])Laboratory - UrinalysisOrdered By: Vahid Nagy on 09-30-2018 Epithelial cells LM Ql (Urine sed)2 TO 5 /HPF(0-5 )Health [facility] Work Phone: Comment on above:Note: Responsible Observer: KLEBER [id number])Metabolic Panelon [id number].direct [Mass/Vol]Negative (NEG)Health [facility] Work Phone: Comment on above:Note: Responsible Observer: KLEBER TREJO ([id number])Glucose [Mass/Vol]Negative(NEG)[facility] Work Phone: Comment on above:Note: Responsible Observer: KLEBER TREJO ([id number])Protein [Mass/Vol]Negative(NEG)Health [facility] Work Phone: Comment on above:Note: Responsible Observer: KLEBER TREJO ([id number])No Panel InformationOrdered By: Vahid Nagy on 09-30-2018 Acetoacetic Acid,UrNegative(NEG )Health [facility] Work Phone: Comment on above:Note: Responsible Observer: KLEBER TREJO ([id number])Bilirubin, SemiQt,UrNegative(NEG )[facility] Work Phone: Comment on above:Note: Responsible Observer: KLEBER [id number])Casts10 TO 20 HYALINE /LPF(0-8 )[facility] Work Phone: Comment on above:Note: Reference range defined for non-centrifuged specimen.Responsible Observer: KLEBER TREJO ([id number]) Glucose,Semi-qnt,UrNegative(NEG )[facility] Work Phone: Comment on above:Note: Responsible Observer: KLEBER TREJO ([id number])Hemoglobin, UrNegative(NEG )[facility] Work Phone: Comment on above:Note: Responsible Observer: KLEBER TREJO ([id number])Leuckocyte EsteraseNegative(NEG )[facility] Work Phone: Comment on above:Note: Responsible Observer: KLEBER TREJO ([id number])Nitrite,UrPositiveAbnormal(NEG )[facility] Work Phone: Comment on above:Note: Responsible Observer: KLEBER TREJO ([id number])Protein, Semi-qnt,UrNegative(NEG )[facility] Work Phone: Comment on above:Note: Responsible Observer: KLEBER TREJO ([id number])Urine RBC's0 TO 2 /HPF(0-4 )[facility] Work Phone: Comment on above:Note: Reference range defined for non-centrifuged specimen.Responsible Observer: KLEBER TREJO ([id number])Urine WBC's0 TO 2 /HPF(0-5 )[facility] Work Phone: Comment on above:Note: Responsible Observer: KLEBER TREJO ([id number])OtherOrdered By: Vahid Nagy on [id number],Urine,CCSee Note [facility] Work Phone: Comment on above:Note: Specimen Description .CLEAN CATCH URINESpecial Requests NOT REPORTEDCulture KLEBSIELLA PNEUMONIAE >050879 CFU/MLReport Status FINAL 10/02/2018SUSCEPTIBILITYOrganism KLEBSIELLA PNEUMONIAEMethod MICAmikacin [...] <=20 SUSCEPTIBLEPiperacillin/Tazobactam <=4 SUSCEPTIBLEResponsible Observer: KLEBER TREJO ([id number])Reported PhysiciansSee NoteCardinal Cushing Hospital Work Phone: Comment on above:Note: Reported Physicians:Ordering: Attending: Vahid Calderón-----See NoteHealth [facility] Work Phone: Comment on above:Note: Responsible Observer: KLEBER TREJO ([id number])CommentNOT REPORTEDHealth [facility] Work Phone: [phone], RenalNOT REPORTED /HPF(0 )[facility] Work Phone: [phone] StrandsNOT REPORTED(NONE )[facility] Work Phone: Other ObservationsNOT REPORTED(NREQ )[facility] Work Phone: [phone] Lab:see noteCardinal [facility] Hospital Work Phone: Comment on above:Note: [employer] [address] [facility] [address] PH,Ur7.0(5.0-8.0 )[facility] Work Phone: Comment on above:Note: Responsible Observer: KLEBER TREJO ([id number])Reported PhysiciansSee NoteCardinal Cushing Hospital Work Phone: Comment on above:Note: Reported Physicians:Ordering: Joo Calderónpec. [place],Ur1.025(1.005-1.030 )[facility] [place] Work Phone: Comment on above:Note: Responsible Observer: KLEBER TREJO ([id number])TrichomonasNOT REPORTED(NONE )Health [facility] Work Phone: TurbidityCLOUDYAbnormal(CLEAR )[facility] Work Phone: [phone] on above:Note: Responsible Observer: KLEBER [id number])Urobilinogen,UrNormal(NORM )Health [facility] Work Phone: Comment on above:Note: Responsible Observer: KLEBER TREJO ([id number])Otheron 99-50-9778Qyqyqkjamwq Acid,UrNegative(NEG)Health [facility] Work Phone: Comment on above:Note: Responsible Observer: KLEBER TREJO ([id number])Leuckocyte EsteraseNegative(NEG)Health [facility] Work Phone: Comment on above:Note: Responsible Observer: KLEBER TREJO ([id number])Nitrite,UrPositiveAbnormal(NEG)Health [facility] Work Phone: Comment on above:Note: Responsible Observer: KLEBER TREJO ([id number])RBC (U) [#/Vol]0 TO 2 /HPF(0-4)[facility] Work Phone: Comment on above:Note: Reference range defined for non-centrifuged specimen.Responsible Observer: KLEBER TREJO ([id number])Urinalysis Ordered By: Vahid Nagy on 13-92-7340Igestzzsc sediment LM Ql (Urine sed)NOT REPORTED(NONE )[facility] Work Phone: [phone] (U)YELLOW(YEL )Health [facility] Work Phone: Comment on above:Note: Responsible Observer: KLEBER TREJO ([id number])Crystals LM Nom (Urine sed)NOT REPORTED /HPF(NONE )[facility] Work Phone: [phone] LM Ql (Urine sed)NOT REPORTED(NONE )[facility] Work Phone: Urinalysison 14-94-1980Xtxwvdym LM.HPF (Urine sed) [#/Area]MANYAbnormal(NONE)[facility] Work Phone: Comment on above:Note: Responsible Observer: KLEBER TREJO ([id number])Casts LM.LPF (Urine sed) [#/Area]10 TO 20 HYALINE /LPF(0-8)[facility] Work Phone: Comment on above:Note: Reference range defined for non-centrifuged specimen.Responsible Observer: KLEBER TREJO ([id number])Epithelial cells LM.HPF (Urine sed) [#/Area]2 TO 5 /HPF(0-5)[facility] Work Phone: Comment on above:Note: Responsible Observer: KLEBER TREJO ([id number])WBC (U) [#/Vol]0 TO 2 /HPF(0-5)[facility] Work Phone: Comment on above:Note: Responsible Observer: KLEBER TREJO ([id number])Laboratory - Specimen informationOrdered By: Vahid Nagy on 90-29-1144Yruco (U)N/ANormalCardinal Cushing Hospital Work Phone: No Panel InformationOrdered By: Vahid Nagy on 54-78-0131Qhf Values NormalN/AAbnormal(NORMAL)[facility] Work Phone: [phone]/A(POS/NEG)[facility] Work Phone: BARN/A(POS/NEG)[facility] Work Phone: BUPN/A(POS/NEG)[facility] Work Phone: BZON/A(POS/NEG)[facility] Work Phone: COCN/A(POS/NEG)[facility] Work Phone: MDMAN/A(POS/NEG)[facility] Work Phone: METN/A(POS/NEG)[facility] Work Phone: [phone]/A(POS/NEG)[facility] Work Phone: [phone]/A(POS/NEG)[facility] Work Phone: OXYN/A(POS/NEG)[facility] Work Phone: PCPN/A(POS/NEG)[facility] Work Phone: Sent to LabN/A(Yes/No)[facility] Work Phone: Staff Members Rgxksbi2Hhqmyg(1 or 2)Health [facility] Work Phone: THCN/A(POS/NEG)[facility] Work Phone: [phone] TempN/ANormal(90-100)[facility] Work Phone: [phone] - Chemistry and Chemistry - challenge Ordered By: Vahid Nagy on 97-92-7302Rgfatwy [Mass/Vol]118 mg/dLAbnormal (80-100)[facility] Work Phone: Laboratory - Hematology and Cell countsOrdered By: Vahid Nagy on 47-14-3947JgC3r (Bld) [Mass fraction]6.7 %Normal(<=7.0)[facility] Work Phone: Laboratory - Specimen informationOrdered By: Vahid Nagy on 90-45-6792Akdvn (U)NNormalCardinal Cushing Hospital Work Phone: No Panel InformationOrdered By: Vahid Nagy on 85-67-9985EOQYPvxuhw(POS/NEG)[facility] Work Phone: [phone](POS/NEG)[facility] Work Phone: BUPNNormal(POS/NEG)[facility] Work Phone: [phone](POS/NEG)[facility] Work Phone: [phone](POS/NEG)[facility] Work Phone: [phone](POS/NEG)[facility] Work Phone: [phone](POS/NEG)[facility] Work Phone: [phone](POS/NEG)[facility] Work Phone: [phone](POS/NEG)[facility] Work Phone: [phone](POS/NEG)[facility] Work Phone: [phone](POS/NEG)[facility] Work Phone: [phone] to LabNONormal(Yes/No)[facility] Work Phone: [phone] Members Adrchjx7Dzwpwy(1 or 2)[facility] Work Phone: [phone](POS/NEG)[facility] Work Phone: [phone] TempNNormal(90-100)[facility] Work Phone: Metabolic Panelon 53-24-3815Bqgjuyptzv A1c/Hemoglobin.total mass fraction (Bld)6.60 %Invalid Interpretation Code< 7 [facility] Glucose mass rmuy150.0 mg/dLInvalid Interpretation Code [facility] Hemoglobin A1c/Hemoglobin.total mass fraction (Bld)6.60 %< 7[facility] Glucose mass beig861.0 mg/dLCardinal Cushing Hospital aEROBIC CULTUREon 20-15-6106IFGOXSJ CULTURESPECIMEN NUMBER: [id number] Laboratories IncComment on above:Result Comment: AEROBIC CULTURE [...] identification is necessary,please contact the Microbiology laboratory.Pathology [employer] [address] [place], [place] [address]Laboratory Director: Albin Snyder M.D.CLIA No. [id number] CAP Accreditation No. [id number] Panelon 78-14-7430Jjfgtjs mass conc98.0 mg/dLInvalid Interpretation CodeCardinal [facility] Hospital Glucose mass conc98.0 mg/dLCardinal Cushing Hospital Metabolic Panelon 55-42-0053Fttjtll mass kiwi442.0 mg/dLInvalid Interpretation CodeCardinal [facility] Hospital Glucose mass upea269.0 mg/dLCardinal Cushing Hospital Metabolic Panelon 48-40-2450Qpipuac mass qitw464.0 mg/dLInvalid Interpretation CodeCardinal [facility] Hospital Glucose mass micz752.0 mg/dLCardinal Cushing Hospital Metabolic Panelon 68-73-6935Fvjqevcyam A1c/Hemoglobin.total mass fraction (Bld)6.20 %Invalid Interpretation Code< 7 [facility] Glucose mass uvte643.0 mg/dLInvalid Interpretation Code [facility] Hemoglobin A1c/Hemoglobin.total mass fraction (Bld)6.20 %< 7[facility] Glucose mass bbwy873.0 mg/dLCardinal Cushing Hospital otheron 13651=EbhhknxfvvWbjevyz Interpretation CodeCardinal C[facility] Hospital 0-N/AInvalid Interpretation [facility] 0Invalid Interpretation [facility] managing chronic illnessInvalid Interpretation Code [facility] Risk Level 2= 4-6Invalid Interpretation [facility] 5Invalid Interpretation [facility] 1493=EoLscqyky Interpretation [facility] [id number]=GhpJmbzlvh Interpretation [facility] 0=N/AInvalid Interpretation [facility] Risk Level 2= 4-6Health [facility] 5Health [facility] 0Health [facility] [id number]=ZdXumyfg [facility] managing chronic illnessHealth [facility] 158286=TyiNphfhb [facility] 152218=IzunkxnvooIfkmnf [facility] 0-N/AHealth [facility] 0=N/AHealth [facility] COMPREHENSIVE METABOLIC PANEL WITH GFRon 12-16-2016 Alanine aminotransferase (ALT)11 U/LNormal5-59Pathology Laboratories IncAlbumin 3.9 g/dLNormal3.2-5.3Pathology Laboratories IncALK PHOS75 IU/QDcryfg12-305 Path[facility] Laboratories IncAnion gap20 mmol/LNormalPathology Laboratories Inc AST-SGOT11 IU/IGmalcg90-22Zobbuusdg Laboratories IncBilirubin (direct)0.4 mg/dL Normal0.2-1.3Pathology Laboratories IncCalcium9.3 mg/dLNormal8.7-10.8[facility] SimBzymsqyz616 mmol/WIiqepy32-071Kdpoldmdn Laboratories IwxZC867 mmol/KXmmtxj83-87Azdyncvdo Laboratories IncCreatinine0.5 mg/dLNormal0.5-1.3 [facility] InceGFR (black)154 [...] conc4.7 mmol/LNormal3.5-5.4Pathology Laboratories IncProtein6.7 g/dLNormal 5.8-8.0[facility] CzsZkcmts759 mmol/TDuhgah062-227Fuptwitui Laboratories IncUrea xpjeipkq04 mg/bQJkqafe39-27Fabtiraxm Laboratories IncLIPID PANEL (INCLUDES CALCULATED LDL)on 00-36-4273Mdtmwrgyzqx871 mg/dLHigh<200 Path[facility] Laboratories IncCholesterol to HDL Ratio6.2 {ratio}High<5Pathology Laboratories IncHDL-CHOL38 mg/zrZrs18-21Ycndfcaes Laboratories IncComment on above:Result Comment: HDL <40 mg/dL IS A RISK FACTOR FOR CORONARY HEART DISEASE. HDL >60 mg/dL IS ANEGATIVE RISK FACTOR FOR CORONARY HEART DISEASE.LDL to HDL Ratio3.7High<3.5Pathology Laboratories IncLDL-CHOL, XXADMLPPMQ104 mg/dLHigh<130 Pathology Laboratories IncComment on above:Result Comment: LDL CHOLESTEROL REFERENCE RANGE FOR 0-19 YEARS: DESIRABLE <110 mg/dL, AGCLQBGFTL044-719, HIGH RISK >130 LDL CHOLESTEROL REFERENCE RANGE FOR ADULTS: DESIRABLE <100 mg/dL, BORD DAILY 130-159, HIGH RISK >160REFERENCE RANGES REVISED 09/09/15 ACCORDING TO NCEP GUIDELINESApxhuiklffve692 mg/dLHigh<150Pathology Laboratories IncVLDL- CHOL, ETFFTAXHRP82 mg/dLHigh<30Pathology Laboratories IncCBC W/AUTO DIFFon 12-15-2016% FQIVHQZFHBH13.3 %NormalPathology Laboratories IncABS BASOPHILS0.1 K/ulNormal0.0-0.1Pathology Laboratories IncABS NEUTROPHILS6.1 K/ulNormal1.3-9.1 Path[facility] Laboratories IncBasophils/100 WBC Auto (Bld)0.8 %NormalPathology Laboratories IncComment on above:Result Comment: MANUAL DIFFERENTIAL PERFORMED Eosinophils0.5 10*3/uLHigh0.1-0.4Pathology Laboratories IncEosinophils/100 leukocytes5.2 %NormalPathology Laboratories IncErythrocyte distribution width Auto Ratio (RBC)16.9 %High10.8-14.8Pathology Laboratories IncErythrocytes (RBC) 5.29 10*6/uLNormal4.00-5.50Pathology Laboratories IncHematocrit (HCT)47.1 % Axbhos38.0-48.0Pathology Laboratories IncHemoglobin mass conc (Bld)15.2 g/dL Yzpzeq25.0-16.0Pathology Laboratories IncLymphocytes1.9 10*3/uLNormal0.8-5.2 [facility] Laboratories IncLymphocytes/100 wezbqqguse06.6 %NormalPathology Laboratories GfjALQ37.7 bgTwzxre54.0-34.0[facility] IncMCHC mass conc (RBC)32.3 g/iNKbpuhm38.0-36.0[facility] GcjLOG36.0 fLNormal 80.-100.Pathology Laboratories IncMonocytes0.5 10*3/uLNormal0.1-0.9Path[facility] Laboratories IncMonocytes/100 leukocytes5.7 %NormalPathology Laboratories Inc Mocewkqft302 10*3/kTCqzsbv445.-450.Pathology Laboratories IncWBC (Leukocytes)9.0 10*3/uLNormal3.7-10.8[facility] IncHEPATITIS C ABon 12-15-2016 HEPATITIS C ABNegativeNormalNEGATIVEPathology Laboratories IncComment on above: Result Comment: [facility] [address] [place], [place] [id number] Director: Dwight Menezes M.D.CLIA No. [id number] CAP Accreditation [place]. [id number] WITH T4 REFLEXon 19-83-7191Mqmzlix stimulating hormone (TSH)1.180 uIU/mLNormal0.40-4.40Pathology Laboratories IncCardiacon 95-46-3273Aybzexkobdk080 mg/dLInvalid Interpretation Code<200Health [facility] HDL Myrxbdckhrb57.0 mg/dO19-15FihjusCardinal Cushing Hospital 1694Owlyfcjvivun088.0 mg/dL<150[facility] Hematologyon 51-02-4246Yscjukyjj #/vol (Bld)0.8 %[facility] Basophils Auto #/vol (Bld)0.8 %Invalid Interpretation CodeCardinal Cushing Hospital Basophils/100 WBC (Bld)0.1 K/uL0.0-0.1[facility] Basophils/100 WBC Auto (Bld)0.1 K/uLInvalid Interpretation Code0.0-0.1[facility] Eosinophils/100 leukocytes5.2 %Invalid Interpretation CodeCardinal C[facility] Hospital Eosinophils/100 WBC (Bld)5.2 %[facility] Erythrocyte distribution width Auto Ratio (RBC)16.9 % Invalid Interpretation Code10.8-14.8[facility] Erythrocytes (RBC)5.290 10*6/uLInvalid Interpretation Code4.00-5.50[facility] Hematocrit (HCT)47.10 %Invalid Interpretation Code 36.0-48.0Health [facility] Hematocrit Volume Fraction (Bld)47.10 %36.0-48.0Health [facility] Hemoglobin A1c/Hemoglobin.total mass fraction (Bld)0.5 10*3/uL0.1-0.4Health [facility] Hemoglobin A1c/Hemoglobin.total mass fraction (Bld)1.9 10*3/uL0.8-5.2Health [facility] Hemoglobin A1c/Hemoglobin.total mass fraction (Bld)0.5 10*3/uL0.1-0.9Health [facility] Hemoglobin A1c/Hemoglobin.total mass fraction (Bld)6.1 10*3/uL1.3-9.1Health [facility] Hemoglobin S tvoygcmv46.2Invalid Interpretation Code 12.0-16.0Health [facility] Lipoprotein a mass conc0.5 10*3/uLInvalid Interpretation Code0.1-0.4[facility] Lipoprotein a mass conc1.9 10*3/uLInvalid Interpretation Code0.8-5.2Health [facility] Lipoprotein a mass conc0.5 10*3/uLInvalid Interpretation Code0.1-0.9[facility] Lipoprotein a mass conc6.1 10*3/uLInvalid Interpretation Code1.3-9.1[facility] Lymphocytes/100 .6 %Invalid Interpretation CodeHealth [facility] Lymphocytes/100 WBC (Bld)20.6 %Health [facility] MCH28.7 pgInvalid Interpretation Code27.0-34.0Health [facility] MCH Entitic mass (RBC)28.7 pg27.0-34.0[facility] MCHC mass conc (RBC)32.3 g/dLInvalid Interpretation Code31.0-36.0[facility] MCV89.0 fLInvalid Interpretation Code80.-100.[facility] MCV Entitic volume (RBC)89.0 fL80.-100.[facility] Monocytes/100 leukocytes5.7 %Invalid Interpretation CodeCardinal C[facility] Hospital [employer] Monocytes/100 WBC (Bld)5.7 %[facility] Neutrophils/100 unzzitydth91.3 %Invalid Interpretation CodeCardinal C[facility] Hospital Neutrophils/100 WBC (Bld)67.3 %[facility] RBC #/vol (Bld)5.290 10*6/uL4.00-5.50[facility] WBC (Leukocytes)9.0 10*3/uLInvalid Interpretation Code 3.7-10.8[facility] Imm/Pathon 92-16-7250Taeyopkgx C antibody presence NegativeNEGATIVECardinal Cushing Hospital Metabolic Panelon 74-86-6823Ulnyjnzciu A1c/Hemoglobin.total mass fraction (Bld)6.70 %Invalid Interpretation Code< 7 [facility] [employer] Glucose mass rrtb424.0 mg/dLInvalid Interpretation Code [facility] Hemoglobin A1c/Hemoglobin.total mass fraction (Bld)6.70 %< 7[facility] Alanine aminotransferase (ALT)11.0 U/L5-59Health [facility] Albumin3.90 g/dL3.2-5.3Health [facility] Alkaline phosphatase (ALP)75.0 U/V88-396Glldzb [facility] Anion gap20 mmol/LInvalid Interpretation Code[facility] Anion gap molar conc20 mmol/LHealth [facility] Aspartate aminotransferase (AST)11.0 U/O08-47Tnybxs [facility] Calcium9.30 mg/dL8.7-10.8Health [facility] 6710Npamegnh512 mmol/Z68-187Nvnkdz [facility] CO222 mmol/LInvalid Interpretation Pbxf61-11Lbeucl [facility] 3897Crwhnnnkka0.50 mg/dL0.5-1.3Health [facility] eGFR (non-black)127 mL/min/{1.73_m2}Invalid Interpretation Code>60Health [facility] eGFR (non-black)154 mL/min/{1.73_m2}Invalid Interpretation Code>60Health [facility] Glucose mass conc99 mg/tW23-338Wdtjci [facility] Potassium molar conc4.70 mmol/L3.5-5.4Health [facility] Protein6.7 g/dL5.8-8.0Health [facility] Sodium142 mmol/F931-622Rhrysd [facility] Urea apmfinym02.0 mg/rU98-90Iyxdds [facility] Glucose mass jqgo966.0 mg/dLHealth [facility] Otheron 64-04-5722ASHQuivnvv Interpretation [facility] WNLHealth [facility] Work Phone: [phone]=ClUxarjbv Interpretation [facility] Risk Level 3=7-9Invalid Interpretation [facility] Work Phone: [phone]=JxbSbbktso Interpretation [facility] 0Invalid Interpretation [facility] 320255=XqdUwqkyji Interpretation [facility] 0-N/AInvalid Interpretation [facility] 8Invalid Interpretation [facility] 0=N/AInvalid Interpretation [facility] 123049=FwlbszyubbBrjkokg Interpretation [facility] Bilirubin Ql (U)0.40.2-1.3Health [facility] Cholesterol crystals Infrared spectroscopy Ql (Stone) 236 mg/dL<200Health [facility] Cholesterol to HDL Ratio6.2 {ratio}<5Health [facility] Erythrocyte distribution width Ratio (RBC)16.9 % 10.8-14.8Health [facility] Hemoglobin S Ql (Bld)15.212.0-16.0Health [facility] LDL to HDL Ratio3.7Invalid Interpretation Code<3.5 Health [facility] Lipoprotein.beta/Lipoprotein.alpha mass ratio3.7<3.5 Health [facility] MCHC mass conc (RBC)32.3 g/dL31.0-36.0Health [facility] 711-2050BwvD-PB SerPl-xSww822.0 mg/dL<130Health [facility] 602-2219LqcD-VZ SerPl-mCnc58.0 mg/dL<30Health [facility] WBC LM Ql (Sput)9.03.7-10.8Health [facility] 464150.-450.[facility] 6.7Invalid Interpretation Code5.8-8.0Health [facility] [id number]>60Health [facility] 127>60Health [facility] 6922-55Whdrzl [facility] Work Phone: [phone] [facility] Work Phone: [phone]=BlblzaiuzcRcgyzd [facility] 6=YcFhecml [facility] 4=HemOwkdwj [facility] 6-E/AHealth [facility] Work Phone: [phone]=UwgTywtgp [facility] Work Phone: [phone]=I/AHealth [facility] Risk Level 3=7-9Health [facility] 8Health [facility] Thyroidon 22-62-6208Bjsnbbu stimulating hormone (TSH) 1.180 uIU/mL0.40-4.40Health [facility] Cardiacon 71-70-1758Evsxqgpravh205 mg/dLInvalid Interpretation Code<200Health [facility] HDL Eodjyqwpken33.0 mg/zT62-09Nqztjz [facility] 9815Dqgrrrpmuanr645.0 mg/dL<150[facility] Hematologyon 01-04-8558Pxuugarpi #/vol (Bld)1.1 %0.-1. [facility] Basophils Auto #/vol (Bld)1.1 %Invalid Interpretation Code0.-1.[facility] Basophils/100 WBC (Bld)0.1 K/uL0.0-0.1[facility] Basophils/100 WBC Auto (Bld)0.1 K/uLInvalid Interpretation Code0.0-0.1[facility] Eosinophils/100 leukocytes3.7 %Invalid Interpretation Code1.-4.[facility] Eosinophils/100 WBC (Bld)3.7 %1.-4.[facility] Erythrocyte distribution width Auto Ratio (RBC)15.3 % Invalid Interpretation Code10.8-14.8HP[facility]roke Hospital [employer] Erythrocytes (RBC)5.050 10*6/uLInvalid Interpretation Code4.00-5.50[facility] Hematocrit (HCT)47.70 %Invalid Interpretation Code 36.0-48.0[facility] Hematocrit Volume Fraction (Bld)47.70 %36.0-48.0[facility] Hemoglobin A1c/Hemoglobin.total mass fraction (Bld)0.4 10*3/uL0.1-0.4[facility] Hemoglobin A1c/Hemoglobin.total mass fraction (Bld)2.4 10*3/uL0.8-5.2Health [facility] Hemoglobin A1c/Hemoglobin.total mass fraction (Bld)0.4 10*3/uL0.1-0.9[facility] Hemoglobin A1c/Hemoglobin.total mass fraction (Bld)6.6 10*3/uL1.3-9.1[facility] Hemoglobin S pyndnjei16.1Invalid Interpretation Code 12.0-16.0Health [facility] Lipoprotein a mass conc0.4 10*3/uLInvalid Interpretation Code0.1-0.4Health [facility] Lipoprotein a mass conc2.4 10*3/uLInvalid Interpretation Code0.8-5.2Health [facility] Lipoprotein a mass conc0.4 10*3/uLInvalid Interpretation Code0.1-0.9Health [facility] Lipoprotein a mass conc6.6 10*3/uLInvalid Interpretation Code1.3-9.1Health [facility] Lymphocytes/100 lotofcikud01.4 %Invalid Interpretation Zfhk00-00Lpeddg [facility] Lymphocytes/100 WBC (Bld)24.4 %16-48Health [facility] MCH29.9 pgInvalid Interpretation Code27.0-34.0Health [facility] MCH Entitic mass (RBC)29.9 pg27.0-34.0[facility] MCHC mass conc (RBC)31.7 g/dLInvalid Interpretation Code31.0-36.0Health [facility] MCV94.4 fLInvalid Interpretation Code80.-100.[facility] [place] [facility] Entitic volume (RBC)94.4 fL80.-100.[facility] Monocytes/100 leukocytes3.8 %Invalid Interpretation Code1.-8.[facility] Monocytes/100 WBC (Bld)3.8 %1.-8.[facility] Neutrophils/100 moljiuujed90.0 %Invalid Interpretation Lhfl59-38Qkdsbl [facility] Neutrophils/100 WBC (Bld)67.0 %45-75[facility] RBC #/vol (Bld)5.050 10*6/uL4.00-5.50[facility] WBC (Leukocytes)9.9 10*3/uLInvalid Interpretation Code 3.7[facility]10.8[facility] Metabolic Panelon 50-23-5821Tdtwtxn aminotransferase (ALT)17.0 U/L5-59Health [facility] Albumin4.30 g/dL3.2[facility] Alkaline phosphatase (ALP)92.0 U/S26-535Dfevyy [facility] Anion gap11 mmol/LInvalid Interpretation CodeHealth [facility] Anion gap molar conc11 mmol/L[facility] Aspartate aminotransferase (AST)16.0 U/C85-52Npatnf [facility] Calcium9.50 mg/dL8.7-10.8[facility] 9262Jrtmrjlo829 mmol/H24-354Ejdcdk [facility] CO227 mmol/LInvalid Interpretation Lboc38-21Wjggek [facility] 2936Khrqkvwwhi3.50 mg/dL0.5-1.3Health [facility] eGFR (non-black)155 mL/min/{1.73_m2}Invalid Interpretation Code>60Health [facility] eGFR (non-black)128 mL/min/{1.73_m2}Invalid Interpretation Code>60Health [facility] Glucose mass conc94 mg/xK52-589Zhadfr [facility] Potassium molar conc4.70 mmol/L3.5-5.4Health [facility] Protein7.0 g/dL5.8-8.0Health [facility] Sodium136 mmol/Y444-210Wytbmp [facility] Urea vuzeyrjj99.0 mg/lO65-94Qoyodo [facility] Glucose mass conc78.0 mg/dLHealth [facility] Glucose mass conc78.0 mg/dLInvalid Interpretation Code Health [facility] Otheron 44-01-4258Vnfhemsbt Ql (U)0.30.2-1.3Health [facility] Cholesterol crystals Infrared spectroscopy Ql (Stone) 224 mg/dL<200Health [facility] Cholesterol to HDL Ratio6.1 {ratio}<5Health [facility] Erythrocyte distribution width Ratio (RBC)15.3 % 10.8-14.8Health [facility] Hemoglobin S Ql (Bld)15.112.0-16.0Health [facility] LDL to HDL Ratio3.6Invalid Interpretation Code<3.5 [facility] Lipoprotein.beta/Lipoprotein.alpha mass ratio3.6<3.5 Health [facility] MCHC mass conc (RBC)31.7 g/dL31.0-36.0Health [facility] p878-4758HrhM-UM SerPl-sJna030.0 mg/dL<130Health [facility] 805-5961SijD-ZN SerPl-mCnc53.0 mg/dL<30Health [facility] WBC LM Ql (Sput)9.93.7-10.8Health [facility] 203150.-450.[facility] 7.0Invalid Interpretation Code5.8-8.0Health [facility] 128>60Health [facility] 155>60Health [facility] 2494-52431992-75Evrjdu [facility] Thyroidon 25-88-4950Mqnfyqx stimulating hormone (TSH) 0.1650 uIU/mL0.40-4.40[facility] Thyroxine (T4) ktpk4707.0 ng/dL4.5-12.5Health [facility] Hematologyon 22-58-9225oJIWCAC except trace of blood, small leukocytesInvalid Interpretation CodeHealth [facility] [employer] Metabolic Panelon 12-63-1934Zcbgsiceju A1c/Hemoglobin.total mass fraction (Bld)9.30 %< 7Health [facility] Glucose mass emdo885.0 mg/dLHealth [facility] Hemoglobin A1c/Hemoglobin.total mass fraction (Bld)9.30 %Invalid Interpretation Code< 7Health [facility] Glucose mass zkfq243.0 mg/dLInvalid Interpretation Code Health [facility] otheron 95-03-299484Xuxhuj [facility] WNLHealth [facility] 50Invalid Interpretation CodeHealth [facility] Urinalysis specialist review Interp Emmett (Unsp spec)WNL except trace of blood, small leukocytesHealth [facility] albumin mass conc (U)50.0 mg/dLHealth [facility] NegativeHealth [facility] WNLInvalid Interpretation CodeHealth [facility] Urinalysis specialist review Interp Emmett (Unsp spec)WNL except trace of blood, small leukocytesInvalid Interpretation CodeHealth [facility] albumin Ur-mCnc50.0 mg/dLInvalid Interpretation Code Health [facility] NegativeInvalid Interpretation CodeHealth [facility] Vital Signs Date TimeVital SignValuePerforming ReuhinlbfNvavthqx56-08-9007 15:06-0400Body xijfuudwhay30.11 [degF]Nat Reynolds MD Work Phone: [facility] Uswmjd94-43-8301 15:06-0400Diastolic blood cgbimaih37 mm[Hg]Nat Reynolds MD Work Phone: [facility] Odcvll30-09-2672 15:06-0400Heart rate 77 /minNat Reynolds MD Work Phone: [facility] Jutyty24-36-1466 15:06-0400 Respiratory rate20 /minNat Reynolds MD Work Phone: [facility] Egbreq06-79-7214 15:06-3455LvP9% (BldA) [Mass fraction]96 %Nat Reynolds MD Work Phone: [facility]10-03-2025 15:06-0400Systolic blood ymbvlhfx35 mm[Hg]Nat Reynolds MD Work Phone: [facility]10-01-2025 20:53-0400Body .9 cmNat Reynolds MD Work Phone: [facility]10-01-2025 20:53-0400Body mass index (BMI) [Ratio]21.97 kg/a7GsjybhfNat Reynolds MD Work Phone: [facility]10-01-2025 20:53-0400Body moawem87.75 kgNat Reynolds MD Work Phone: [facility]08-21-2025 17:00-0400Diastolic blood vpmdtzdy36 mm[Hg]Osmar Rodriguez MD Work Phone: [facility]08-21-2025 17:00-0400Systolic blood gndxjxwy669 mm[Hg]Osmar Rodriguez MD Work Phone: [facility]08-21-2025 16:45-0400Heart rate73 /Emma Rodriguez MD Work Phone: [facility]08-21-2025 16:45-6380VbB7% (BldA) [Mass fraction]90 %Osmar Rodriguez MD Work Phone: [facility]08-21-2025 14:15-0400 Respiratory rate18 /Emma Rodriguez MD Work Phone: [facility]08-21-2025 12:11-0400Body uyjvremrhzg96.5 [degF]Osmar Rodriguez MD Work Phone: [facility]05-19-2025 10:29-0400 Respiratory rate15 /Emma Rodriguez MD Work Phone: [facility]05-19-2025 07:27-9395EyA5% (BldA) [Mass fraction]95 %Osmar Rodriguez MD Work Phone: [facility]05-19-2025 06:47-0400Body xmkpgdylgfp66 [degF]Osmar Rodriguez MD Work Phone: [facility]05-19-2025 06:47-0400Diastolic blood mm[Hg]Osmar Rodriguez MD Work Phone: [facility]05-19-2025 06:47-0400Heart rate73 /Emma Rodriguez MD Work Phone: [facility]05-19-2025 06:47-0400Systolic blood iihtobkd852 mm[Hg]Osmar Rodriguez MD Work Phone: [facility]05-19-2025 01:26-0400Body mass index (BMI) [Ratio]23.47 kg/h3WssitqOsmar Rodriguez MD Work Phone: [facility]05-19-2025 01:26-0400Body lfcbne69.34 kgOsmar Rodriguez MD Work Phone: [facility]05-15-2025 07:22-0400Body noneof407.9 Nora Rodriguez MD Work Phone: [facility]05-12-2025 18:30-0400Body ngiqqytugga60.5 [degF]Osmar Rodriguez MD Work Phone: [facility]05-12-2025 18:30-0400Diastolic blood vbzlejqg65 mm[Hg]Osmar Rodriguez MD Work Phone: [facility]05-12-2025 18:30-0400Heart rate78 /Emma Rodriguez MD Work Phone: [facility]05-12-2025 18:30-0400 Respiratory rate18 /Emma Rodriguez MD Work Phone: [facility]05-12-2025 18:30-9516InD0% (BldA) [Mass fraction]95 %Osmar Rodriguez MD Work Phone: [facility]05-12-2025 18:30-0400Systolic blood nufcizav159 mm[Hg]Osmar Rodriguez MD Work Phone: [facility]05-12-2025 05:44-0400Body mass index (BMI) [Ratio]24.67 kg/p2ZtcosqOsmar Rodriguez MD Work Phone: [facility]05-12-2025 05:44-0400Body tvwmog58.19 kgOsmar Rodriguez MD Work Phone: [facility]05-09-2025 06:44-0400Body ticmlc705.9 cmSmaria elena Rodriguez MD Work Phone: [facility]10-24-2024 16:00-0400Inhaled oxygen flow rate2 L/KarenO Carlo Grimaldo Work Phone: [facility]10-24-2024 16:00-0400 SaO2% (BldA) [Mass fraction]95 %DO Carlo Grimaldo Work Phone: [facility]10-24-2024 13:59-0400 Diastolic blood zeqxkehj46 mm[Hg]DO Carlo Grimaldo Work Phone: [facility]10-24-2024 13:59-0400 Heart rate70 /minDO Carlo Grimaldo Work Phone: [facility]10-24-2024 13:59-0400 Respiratory rate18 /minDO Carlo Grimaldo Work Phone: [facility]10-24-2024 13:59-0400 Systolic blood jeiyykgc655 mm[Hg]DO Carlo Grimaldo Work Phone: [facility]10-24-2024 07:58-0400 Body oukqcrsprjh11.8 [degF]DO Carlo Grimaldo Work Phone: [facility]10-24-2024 05:30-0400 Body bigtkh16 kgDO Carlo Grimaldo Work Phone: [phone]10-23-2024 15:20-0400 Body kaiuqj824.18 cmDO Carlo Grimaldo Work Phone: [phone]10-20-2024 21:30-0400 Diastolic blood unnrepry83 mm[Hg]DO Carlo Grimaldo Work Phone: [phone]10-20-2024 21:30-0400 Heart rate67 /minDO Carlo Grimaldo Work Phone: [phone]10-20-2024 21:30-0400 Inhaled oxygen flow rate4 L/minDO Carlo Grimaldo Work Phone: [phone] [place], [place] 4303610-20-2024 21:30-0400 Respiratory rate20 /minDO Carlo Grimaldo Work Phone: [phone]10-20-2024 21:30-0400 SaO2% (BldA) [Mass fraction]94 %DO Carlo Grimaldo Work Phone: [facility]10-20-2024 21:30-0400 Systolic blood wlxwtmag687 mm[Hg]DO Carlo Grimaldo Work Phone: [facility]10-20-2024 16:43-0400 Body ocjibu681.94 cmDO Carlo Grimaldo Work Phone: [facility]10-20-2024 16:43-0400 Body tgnwwi66.4 kgDO Carlo Grimaldo Work Phone: [facility]10-20-2024 16:41-0400 Body .2 [degF]DO Carlo Grimaldo Work Phone: [facility]04-30-2023 12:10-0400 Body .9 Nora Rodriguez MD Work Phone: [facility]04-30-2023 12:10-0400Body mass index (BMI) [Ratio]30.23 kg/i8UigencOsmar Rodriguez MD Work Phone: [facility]04-30-2023 12:10-0400Body wsungnecbuz90.9 [degF]Osmar Rodriguez MD Work Phone: [facility]04-30-2023 12:10-0400Body sjwoge79.58 kgOsmar Rodriguez MD Work Phone: [facility]04-30-2023 12:10-0400Diastolic blood fqtjmaoe87 mm[Hg]Osmar Rodriguez MD Work Phone: [facility]04-30-2023 12:10-0400Heart rate60 /Emma Rodriguez MD Work Phone: [facility]04-30-2023 12:10-0400 Respiratory rate20 /Emma Rodriguez MD Work Phone: [facility]04-30-2023 12:10-2720PwN3% (BldA) [Mass fraction]91 %Osmar Rodriguez MD Work Phone: [facility]04-30-2023 12:10-0400Systolic blood mm[Hg]Osmar Rodriguez MD Work Phone: [facility]04-22-2023 10:16-0400Body uvzpugftepu89.9 [degF]Osmar Rodriguez MD Work Phone: [facility]04-22-2023 10:16-0400Diastolic blood iysavvhm32 mm[Hg]Osmar Rodriguez MD Work Phone: [facility]04-22-2023 10:16-0400Heart rate79 /Emma Rodriguez MD Work Phone: [facility]04-22-2023 10:16-0400 Respiratory rate20 /Emma Rodrgiuez MD Work Phone: [facility]04-22-2023 10:16-5869NnO3% (BldA) [Mass fraction]91 %Osmar Rodriguez MD Work Phone: [facility]04-22-2023 10:16-0400Systolic blood pnzzzuox772 mm[Hg]Osmar Rodriguez MD Work Phone: [facility]01-27-2023 13:55-0500Body .9 cmCorrine Chery 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 Work Phone: [phone] [place], [place] 7063901-27-2023 13:55-0500Body mass index (BMI) [Ratio]25.51 kg/k3EhwzhqfvCorrine De La Cruzor 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 Work Phone: [phone] [place], [place] 7063901-27-2023 13:55-0500Body rmacts29.24 kgCorrine De La Cruzor 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 Work Phone: [phone] [place], [place] 7063901-27-2023 13:55-0500 Diastolic blood poinhvwj65 mm[Hg]Corrine De La Cruzmeeta [employer]ER[employer]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 Work Phone: [phone] [place], [place] 7063901-27-2023 13:55-0500Heart rate70 /minCorrine Chery 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 Work Phone: [phone] [place], [place] 7063901-27-2023 13:55-0500Systolic blood mm[Hg]Corrine De La Cruzmeeta [employer]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 Work Phone: [phone] [place], [place] 7063904-20-2022 15:30-0400 Diastolic blood mm[Hg]Pedrito Pickett MD Work Phone: [facility]04-20-2022 15:30-0400Heart rate69 /Derick Pickett MD Work Phone: [facility]04-20-2022 15:30-0400 Respiratory rate24 /minSmicah Pickett MD Work Phone: [phone] [place], [place] 7315904-20-2022 15:30-3571JnA2% (BldA) [Mass fraction]93 %Pedrito Pickett MD Work Phone: [phone] [place], [place] 7315904-20-2022 15:30-0400Systolic blood bllznovw968 mm[Hg]Pedrito Pickett MD Work Phone: [phone] [place], [place] 7315904-20-2022 12:46-0400Body xfodvw056.9 cmSmicah Pickett MD Work Phone: [phone] [place], [place] 7315904-20-2022 12:46-0400Body mass index (BMI) [Ratio]22.67 kg/h9TzrexvPedrito Pickett MD Work Phone: [phone] [place], [place] 7315904-20-2022 12:46-0400Body odqeqwdhytc29.2 [degF]Pedrito Pickett MD Work Phone: [phone])[address] [place], [place] 7315904-20-2022 12:46-0400Body snwsee77.43 kgPedrito Pickett MD Work Phone: [phone] [place], [place] 7315912-19-2021 13:47-9610EnA9% (BldA) [Mass fraction]94 %Osmar Rodriguez [facility]8122 12:02-0500Diastolic blood foclecke53 mm[Hg]Osmar Rodriguez MD Work Phone: [facility] HospitalPulyti35-81-2049 12:02-0500Systolic blood mm[Hg]Osmar Rodriguez MD Work Phone: [facility] HospitalZxwhca89-35-1612 09:16-0500Heart rate70 /min Osmar Rodriguez MD Work Phone: [facility] HospitalAtzqfa15-65-3332 08:33-0500Body mass index (BMI) [Ratio]30.55 kg/k5Vlowoydiego Rodriguez MD Work Phone: [facility] Ulpjbe39-48-1615 08:33-0500Body ygcpky50.35 kg Osmar Rodriguez MD Work Phone[facility] HospitalTrxihr65-52-9749 06:01-0500Respiratory rate18 /minSmaria elena Rodriguez MD Work Phone: [facility] Dojnmj67-19-4582 13:56-0500Body usabmrwtrwt02.1 [degF]Osmar Rodriguez MD Work Phone: [facility] Qmftse34-49-8635 11:51-0500Diastolic blood mm[Hg][facility] Fuldwj68-91-1680 11:51-0500Heart rate56 /[facility]Reg[facility] 02-09-2021 11:51-0500Respiratory rate18 /min[facility] Hmlmhp21-55-4731 11:51-0500 SaO2% (BldA) [Mass fraction]96 %[facility] Iwryvy27-54-4866 11:51-0500Systolic blood ycojyoub161 mm[Hg][facility] Zcaekp37-21-9750 11:09-0500Body .9 cm[facility] Uxunbp44-46-9666 11:09-0500Body mass index (BMI) [Ratio]30.23 kg/u2Bcxxc [facility] 02-09-2021 11:09-0500Body fbuuacmdnwg67.1 [degF][facility] Mprhtf63-81-8015 11:09-0500Body wyxuxr27.58 kgMer[facility] Fulfjx33-85-1294 15:19-0400Diastolic blood gtbseohi63 mm[Hg]Albert Andes DO [facility] Work Phone: 1([phone] 610-113610-14-2021 15:19-0400Systolic blood dljanmjy364 mm[Hg] Albert Andes DO Work Phone: [facility] Work Phone: [phone] 398-387310-14-2021 15:15-4845SiF5% (BldA) [Mass fraction]96 % Albert Andes DO Work Phone: [facility] [employer] Work Phone: 1(506) 237-289810-14-2021 12:02-0400Body vzejrk713.9 cmJustin Andes DO Work Phone: [facility] Work Phone: 1([phone] 619-878810-14-2021 12:02-0400Body mass index (BMI) [Ratio] 30.23 kg/h7Xuumzj Andes DO Work Phone: [facility] Work Phone: [phone] 12:02-0400Body ffupkdflemq18.7 [degF]Albert Andes DO Work Phone: [facility] Work Phone: [phone] 12:02-0400Body fnpaml90.58 kgJustin Andes DO Work Phone: [facility] Work Phone: 1(988) 618-839110-14-2021 12:02-0400Heart rate70 /minJustin Andes DO Work Phone: [facility] [employer] Work Phone: 1([phone] 732-895710-14-2021 12:02-0400Respiratory rate18 /minJustin Andes DO Work Phone: [facility] Work Phone: 1(519) 308-104209-05-2021 19:00-0400Diastolic blood mm[Hg] Mukeshpaige Marley MD Work Phone: [facility] [employer] Work Phone: 1(114) 724-700109-05-2021 19:00-0400Systolic blood ifexxral155 mm[Hg] Mukeshpaige Marley MD Work Phone: [facility] [employer] Work Phone: 1(859) 427-676809-05-2021 17:30-0844XoJ3% (BldA) [Mass fraction]99 % Mukeshpaige Marley MD Work Phone: [facility] [employer] Work Phone: 1([phone] 796-874309-05-2021 15:50-0400Body mass index (BMI) [Ratio] 34.01 kg/m2Mukesh Marley MD Work Phone: [facility] [employer] Work Phone: 1(627) 570-709309-05-2021 15:50-0400Body crxcwwtsuoe05.6 [degF]Mukesh Marley MD Work Phone: [facility] [employer] Work Phone: 1(545) 565-540609-05-2021 15:50-0400Body eojrpw73.65 kgMukesh Marley MD Work Phone: [facility] [employer] Work Phone: 1([phone] 458-262509-05-2021 15:50-0400Heart rate77 /Jimmie Marley MD Work Phone: [facility] [employer] Work Phone: 1(540) 797-558609-05-2021 15:50-0400Respiratory rate16 /Jimmie Marley MD Work Phone: [facility] [employer] Work Phone: 1(889) 172-699901-12-2021 09:55-0500BMI (Body Mass Index)33.7 kg/m2 [facility] Work Phone: 1(383) 959-810201-12-2021 09:55-0500Body Dwadafetwhw72.7 [degF][facility] Work Phone: 1(847) 192-559201-12-2021 09:55-0500Body ayrqyg86.61 kgAijuanito [facility] Work Phone: 1([phone]) 805-360401-12-2021 09:55-0500BP Xoaogbvzh55 mm[Hg][facility] Work Phone: 1(152) 528-216701-12-2021 09:55-0500BP Tmytvcdp692 mm[Hg][facility] Work Phone: 1(754) 476-730201-12-2021 09:55-0500BSA (Body Surface Area)1.78 m2 [facility] Work Phone: 1(250) 625-109001-12-2021 09:55-4077Auhhbb299.67 cmAimee [facility] Work Phone: 1(820) 623-120101-12-2021 09:55-0500Pulse (Heart Rate)70 /minAijuanito [facility] Work Phone: 1(439) 276-686201-12-2021 09:55-0500Pulse Kpwrnbin94 %[facility] Work Phone: 1(941) 475-792701-12-2021 09:55-0500Respiratory Rate18 /[facility] Work Phone: 1(276) 125-273301-05-2021 14:02-0500BMI (Body Mass Index)30.23 kg/m2 [facility], UO30-52-3088 14:02-0500Body Dprncqybqye62.9 [degF][facility], HB42-90-0276 14:02-0500Body dghlaw99.58 kgHoly [facility], CH15-63-7394 14:02-0500BP Dobsxmimz04 mm[Hg] [facility], SK84-57-2294 14:02-0500BP Bgmkawak590 mm[Hg] [facility], KY95-14-6468 14:02-0500Pulse (Heart Rate)63 /[facility], PA59-49-8882 14:02-0500Pulse Gscgbmxl22 % [facility], SM16-74-5456 14:02-0500Respiratory Rate18 /min [facility], IY47-46-0104 14:39-0500BP Irctqoalf56 mm[Hg] [facility], BL41-60-2011 14:39-0500BP Hdcnxdiv222 mm[Hg][facility], OK47-43-0875 14:39-0500Pulse (Heart Rate)65 /min[facility], SS21-65-8394 14:39-0500Pulse Jckuwhtc88 %[facility], MP43-53-8907 14:39-0500Respiratory Rate16 /[facility], VI43-67-9235 13:59-0500BMI (Body Mass Index)30.23 kg/y9WxyhyMer[facility] Health [facility], GE19-11-5086 13:59-0500Body Xhamwqqyluh52.01 [degF][facility], TT50-73-9847 13:59-0500Body taxwhb87.58 kgP[facility], OQ77-53-1981 07:30-0500Body Pgvatzyczrh24.7 [degF][facility], JL26-13-6009 07:30-0500BP Imxaqplfp05 mm[Hg][facility], HT98-43-6274 07:30-0500BP Qbkkxxxc945 mm[Hg][facility], TW49-10-0537 07:30-0500Pulse (Heart Rate)63 /min [facility], DR05-58-1746 07:30-0500Pulse Zqjctxiu899 % [facility], CR14-28-8445 07:30-0500Respiratory Rate16 /[facility], NN14-96-3746 18:02-0500BMI (Body Mass Index)31.78 kg/z1WxchzalwsjdqBaraga [facility], RC21-65-7745 18:02-0500Body bepanw79.3 kgBar[facility], IV07-76-0757 18:02-0500Height 154.9 cmBar[facility], QY60-57-1115 10:52-0500BP Diastolic 91 mm[Hg]Josef [facility], CN55-59-9984 10:52-0500BP Xjkzkqiz350 mm[Hg] [facility], XG30-43-3279 10:52-0500Pulse (Heart Rate)59 /minC[facility], ZZ39-14-6111 08:49-0500Body Smxqkyirnow18.8 [degF][facility], BR47-64-1750 08:49-0500Pulse Kxdvqqib82 %[facility], RC33-29-5980 08:49-0500Respiratory Rate16 /minC[facility], AO70-42-9476 08:07-5213Acxtwt526.9 [facility] [place] 03-18-2020 03:57-0500BMI (Body Mass Index)33.32 kg/m2[facility], YO60-64-4136 03:57-0500Body kgC[facility], XQ95-48-1630 18:45-0500BP Ihsuqtyxc99 mm[Hg][address], GB71-06-4230 18:45-0500BP Yiefadwb331 mm[Hg][address], HE25-57-3634 18:45-0500Pulse (Heart Rate)62 /min[address], LB28-29-7683 18:45-0500Pulse Jsosnefq91 %[address], QW32-92-6165 18:45-0500Respiratory Rate14 /min[address], KM99-97-2020 16:28-0500BMI (Body Mass Index)32.12 kg/m[address], EB61-08-6614 16:28-0500Body Pomczbkrgdv45.81 [degF][address], XH46-46-4334 16:28-0500Body rcdyfi82.[address], [place] 03-17-2020 16:28-2866Yngxit888.[address], BD20-59-5029 13:36-0500Pulse (Heart Rate)67 /minESelect Medical [facility], RT46-84-0063 13:36-0500Pulse Vhuatvmm72 %[facility]eshpaige [facility], QP61-33-0722 13:36-0500Respiratory Rate20 /Robertan JuanWay[facility], OL64-70-5817 12:15-0500BP Cjmyalkew34 mm[Hg]Mukesh [facility]Way[facility], HH65-99-0789 12:15-0500BP Bsfehqch322 mm[Hg]Mukesh RameshUniversity [facility]als [facility], [id number] 11:27-0500BMI (Body Mass Index)34.01 kg/m2Etan [facility] [place] 03-13-2020 11:27-0500Body Wdfqiolhvec29.91 [degF]Mukesh [facility]University [facility], [id number] 11:27-0500Body ohgpmj06.65 kgEtan [facility]Way[facility], [place] 02-12-2020 14:02-0500BMI (Body Mass Index)34.01 kg/j9Vuwigql [facility], LG24-23-5826 14:02-0500Body Uspkkhiogqo65.4 [degF]Deion [facility], JU99-95-3736 14:02-0500Body dvkoos49.65 kgDeion [facility], [place] 02-12-2020 14:02-0500BP Nanhlarfj96 mm[Hg]Deion [facility] 02-12-2020 14:02-0500BP Uivmgkpx902 mm[Hg]Edion [facility] 02-12-2020 14:02-0500Pulse (Heart Rate)67 /[facility] [place] 02-12-2020 14:02-0500Pulse Xxpflknp21 %Deion [facility] 02-12-2020 14:02-0500Respiratory Rate14 /[facility]St[facility] Hospitalcar[facility] [place] 01-28-2020 09:30-0400BMI (Body Mass Index)33.9 kg/y8Tikkt [facility] Work Phone: 1(633) 329-328110-29-2020 09:30-0400Body Rxokcfetmmj30 [degF][facility] Work Phone: 1(488) 352-761310-29-2020 09:30-0400Body vuxrdy50.02 kgAiKeenan [facility] Hospital Work Phone: 1(951) 264-816610-29-2020 09:30-0400BP Hrgrcgvtt54 mm[Hg][facility] Work Phone: 1(859) 331-892510-29-2020 09:30-0400BP Czbsrgyx754 mm[Hg][facility] Work Phone: 1(576) [phone] 09:30-0400BSA (Body Surface Area)1.78 m2 [facility] Work Phone: 1(177) [phone] 09:30-0668Epfioc874.67 cmAimee [facility] Work Phone: 1(642) 331-875710-29-2020 09:30-0400Pulse (Heart Rate)68 /[facility] Work Phone: 1(352) 205-811410-29-2020 09:30-0400Pulse Letwfspn83 %[facility] Work Phone: 1(936) 608-705410-29-2020 09:30-0400Respiratory Rate20 /[facility] Work Phone: 1(631) [phone] 08:49-0400BMI (Body Mass Index)34.4 kg/m2 [facility] Work Phone: 1(712) 892-713608-17-2020 08:49-0400Body Oevuxtqnjdk30.9 [degF][facility] Work Phone: 1(562) [phone] 08:49-0400Body .56 [facility]Ke[facility] Work Phone: 1(862) 759-821008-17-2020 08:49-0400BP Rnhhsrdyp42 mm[Hg][facility] Work Phone: 1(264) 922-611008-17-2020 08:49-0400BP Uibkkntc15 mm[Hg][facility] Work Phone: 1(671) 242-928608-17-2020 08:49-0400BSA (Body Surface Area)1.81 m2 [facility] Work Phone: 1(963)752-385-545606-75890978-06-0484 08:49-5666Hbgkwf150.94 cmAHolzer Health System Work Phone: 1(021)[phone] 08:49-0400Pulse (Heart Rate)65 /[facility] Work Phone: 1(957)[phone] 08:49-0400Pulse Vtlcrnnf64 %[facility] Work Phone: 1(579)[phone] 08:49-0400Respiratory Rate18 /[facility] Work Phone: 1(719) [phone] 14:02-0400BP Gzjvdscet88 mm[Hg][facility], UG35-11-6789 14:02-0400BP Ohtzcvct028 mm[Hg][facility], AW58-35-2498 14:02-0400Pulse (Heart Rate)66 /[facility], IO03-18-3580 14:02-0400Respiratory Rate20 /[facility], PP72-71-7728 13:40-0400Pulse Dxlbmqhd799 %[facility], HC88-88-2497 13:34-0400BMI (Body Mass Index)34.01 kg/m2[facility], UZ34-43-7558 13:34-0400Body Ntxuemtxigy86.59 [degF][facility], CJ49-56-4491 13:34-0400Body wxyzoj04.65 kgMukesh [facility], GW88-93-5090 13:34-5267Zwhycl130.9 cmElaura [facility], 10-21-2019 08:16-0400BMI (Body Mass Index)35 kg/d6DskdtSelect [facility] Work Phone: 1(295) 08:16-0400Body Mycyqkqlbna20.1 [degF][facility] Work Phone: 1([phone]) 08:16-0400Body .01 kgAiKeenan Private Hospital Work Phone: 1(879) 08:16-0400BP Omhduvjfk29 mm[Hg][facility] Work Phone: 1(644) 08:16-0400BP Kuuoizsr735 mm[Hg][facility] Work Phone: 1(060) 08:16-0400BSA (Body Surface Area)1.83 m2 [facility] Work Phone: 1(301) 08:16-3372Rlctdu786.94 cmAHolzer Health System Work Phone: 1(755) 08:16-0400Pulse (Heart Rate)72 /[facility] Work Phone: 1(694) 08:16-0400Pulse Yigxvvly16 %[facility] Work Phone: 1(056) 08:16-0400Respiratory Rate20 /[facility] Work Phone: 1(049) 02:32-0400BP Prufduuby09 mm[Hg][facility], VG48-85-6454 02:32-0400BP Puiihynl267 mm[Hg][facility], VU62-62-8882 02:32-0400Pulse (Heart Rate)96 /minSyed [facility], TX66-92-2597 02:32-0400Pulse Gquarmap98 %[facility], VM20-63-4214 23:38-0400Respiratory Rate16 /minSyed [facility], JI84-06-9541 22:52-0400Body Qsunbcxtcat65.7 [degF]Wesly [facility], JH43-75-8482 11:11-0400Respiratory rateNOT REPORTEDLegacy [facility], VY83-88-6194 10:57-0400Pulse Fiqnqbyx43 %Nia [facility], UE97-10-1806 09:21-0400Body Aqiokrlaohw911.2 [degF]Nia [facility], JK90-15-0866 09:21-0400BP Jrcsfpbns92 mm[Hg]Nia [facility], VH93-37-7998 09:21-0400BP Axuxnrcg401 mm[Hg] Nia [facility], AY56-34-4591 09:21-8272Xljtiz997.6 cm Nia [facility], CI26-20-9830 09:21-0400Pulse (Heart Rate)85 /[facility], IG79-89-0116 09:21-0400Respiratory Rate22 /[facility], OA21-91-5607 13:14-0400Body tgenej588.94 cmAkamiki Angelita [facility] Work Phone: [facility] Work Phone: 1(208) [phone] 13:14-0400Body mass index (BMI) [Ratio]35.4 kg/d8Jrarw 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: [facility] Work Phone: 1(398) 311-966306-25-2020 13:14-0400Body surface area Derived from formula1.84 i5YaooqVahid Nagy CNP Work Phone: [phone] [facility] Work Phone: [phone] 13:14-0400Body ajqrshwsmzv67.9 [degF]Vahid Nagy CNP Work Phone: [phone] [facility] Work Phone: [phone])[phone] 13:14-0400Body wmtmud85.1 kgAijuanito Nagy CNP Work Phone: [phone] [facility] Work Phone: [phone] 13:14-0400Diastolic blood whepmwxa03 mm[Hg] Vahid Nagy CNP Work Phone: [phone] [facility] Work Phone: [phone] 13:14-0400Heart rate74 /Kip Nagy CNP Work Phone: Health [facility] Work Phone: [phone] 13:14-0400Pulse Vepldjwt40 %Vahidchristiano Nagy [facility] Work Phone: [phone] 13:14-0400Respiratory rate18 /Kip Nagy CNP Work Phone: [phone] [facility] Work Phone: [phone])[phone] 13:14-2416YwH2% (BldA) [Mass fraction]98 % Vahid Nagy [facility] Work Phone: [phone] [facility] Work Phone: [phone] 13:14-0400Systolic blood qybfpntu731 mm[Hg] 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 Work Phone: [phone] Work Phone: [phone] 10:15-0400Pulse (Heart Rate)78 /[facility], OR94-88-1024 08:00-0400Body Pyloonfjegn15.5 [degF]Chago [facility], CQ69-26-7465 08:00-0400BP Edfomsgfw43 mm[Hg]Chago Marr [facility], LK40-64-9168 08:00-0400BP Toticlmt405 mm[Hg]Chago [facility], CH88-03-5119 08:00-0400Pulse Sltpnmen46 %[facility]ago [facility]Sum[facility], JP08-67-3373 19:33-0400Respiratory Rate17 /minChago CherryTri[facility], 07-23-2019 06:00-0400BMI (Body Mass Index)35.9 kg/c5CevvaChago CherryTriHealth Bethes[facility], DO87-05-6331 06:00-0400Body jcaokm08.18 kgChago [facility], 07-18-2019 02:02-0096Fanzcp458.9 cmChago CherryTriHealth Bet[facility], RG31-43-5078 23:47-0400BP Qhqgvqcap18 mm[Hg]Luis [facility], DA04-47-9367 23:47-0400BP Hpjwyije180 mm[Hg][facility], IC03-07-0249 23:47-0400Pulse (Heart Rate)72 /Harish [facility], RA44-01-3264 23:47-0400Respiratory Rate16 /Harish [facility], OG15-90-7118 19:25-0400Pulse Heqlvdpk74 %[facility], LQ28-95-4811 18:28-0400 Respiratory rateNOT REPORTEDTogus VA Medical Center, ZS58-70-0847 17:32-0400 BMI (Body Mass Index)34.01 kg/j4Dlewd [facility], RE99-34-4693 17:32-0400Body Kjganyvzynz74.9 [degF][facility], BU75-30-4054 17:32-0400Body thinln79.65 kgTerrySelect Medical [facility] [place], OM96-37-7789 14:47-0400BMI (Body Mass Index)35.7 kg/h0YfcwiVahid BrewerParrish Medical [facility] Work Phone: 1(339)[phone]1-6157 14:47-0400Body Tbnqwffjglb13.5 [degF][facility] Work Phone: 1(605) 14:47-0400Body qthzgi87.73 kgAiKeenan Private Hospital Work Phone: 1(545) 14:47-0400BP Uesqhxrom15 mm[Hg][facility] Work Phone: 1(092) 14:47-0400BP Jduatpoi084 mm[Hg][facility] Work Phone: 1(290) 14:47-0400BSA (Body Surface Area)1.84 m2 [facility] Work Phone: 1(951) 14:47-5063Okzkng784.94 cmAHolzer Health System Work Phone: 1(474) 14:47-0400Pulse (Heart Rate)63 /[facility] Work Phone: 1(097) 14:47-0400Pulse Bkgwthad18 %[facility] Work Phone: 2(893) 14:47-0400Respiratory Rate18 /[facility] Work Phone: 1(274) 14:47-5221JpN6% (BldA) [Mass fraction]96 % [facility] Work Phone: [phone] Work Phone: 1([phone]) 16:48-0400BP Zeiwpflfi01 mm[Hg][facility], VB92-23-7138 16:48-0400BP Syytgjvw064 mm[Hg][facility], OS44-30-7677 16:48-0400Pulse (Heart Rate)56 /[facility], JO10-19-0318 16:48-0400Respiratory Rate17 /minEtan [facility], BH80-19-2955 14:53-0400BMI (Body Mass Index)34.01 kg/m2Mukesh [facility], HV06-82-0922 14:53-0400Body Autahdxhnps66.4 [degF]Mukesh [facility], JC81-49-8998 14:53-0400Body jsirkf97.65 kgMer[facility], CJ94-23-9408 14:53-0400Pulse Wrxujiwp52 %Mukesh [facility], EA59-87-7590 09:21-0500BMI (Body Mass Index)37.6 kg/x1Pwbsd [facility], HX57-26-3831 09:21-0500Body Eepvbfadqhl17.9 [degF][facility], DS95-24-2851 09:21-0500Body xojiir14.27 kgLuis [facility], MT26-40-5800 09:21-0500BP Npjwrvlsd99 mm[Hg][facility], [place] 05-27-2019 09:21-0500BP Dvikjblg703 mm[Hg][facility], [place] 05-27-2019 09:21-0500Pulse (Heart Rate)83 /[facility], [place] 05-27-2019 09:21-0500Pulse Dscvslvv12 %[facility], GG69-47-3676 09:21-0500Respiratory Rate16 /minT[facility]us [facility] Medical [facility], ST94-29-5391 15:11-0500BMI (Body Mass Index)37.4 kg/z2Vfeor [facility] Work Phone: 1(430) 15:11-0500Body Eywsmvscuim17.4 [degF]Vahid [facility] Work Phone: [phone] 15:11-0500Body fjjyok19.81 kgAijuanito [facility] Work Phone: 1(419) 15:11-0500BP Nnejxizsj69 mm[Hg][facility] Work Phone: 1(974) 15:11-0500BP Diondkid689 mm[Hg][facility] Work Phone: 1(060) 15:11-0500BSA (Body Surface Area)1.88 m2 [facility] Work Phone: 1(234) 15:11-2771Cksequ275.94 cmAimeNorthwest Health Physicians' Specialty Hospital Work Phone: 1(609) 15:11-0500Pulse (Heart Rate)71 /min[facility] Work Phone: 1(531) 15:11-0500Pulse Cdifzbrx62 %[facility] Work Phone: 1(119) 15:11-0500Respiratory Rate18 /[facility] Work Phone: 1(922) 15:11-4658UnI7% (BldA) [Mass fraction]90 % [facility] Work Phone: [phone] Work Phone: 1(967) 08:00-0500Body brwkrpdvfea18.7 [degF]Albert Andes DO Work Phone: [facility] Work Phone: 1([phone] 379-290401-26-2020 08:00-0500Diastolic blood ljjujrkg93 mm[Hg] Albert Andes DO Work Phone: [facility] Work Phone: 1(680) 502-127601-26-2020 08:00-0500Heart rate73 /minJustin Andes DO Work Phone: [facility] [facility] Work Phone: 1(562) 252-514301-26-2020 08:00-0500Respiratory rate18 /minJustin Andes DO Work Phone: [facility] [employer] Work Phone: 1(802) 293-969901-26-2020 08:00-6174EoB4% (BldA) [Mass fraction]93 % Albert Andes DO Work Phone: [facility] [employer] Work Phone: 1(715) [phone] 08:00-0500Systolic blood rifxoutn758 mm[Hg] Albert Andes DO Work Phone: [facility] [employer] Work Phone: 1(576) [phone] 05:00-0500Body mass index (BMI) [Ratio] 36.81 kg/h6Ssxacb Andes DO Work Phone: [facility] [employer] Work Phone: 1(795) 293-115001-26-2020 05:00-0500Body xucffh42.36 kgJustin Andes DO Work Phone: [facility] [employer] Work Phone: 1(176) 358-130901-21-2020 22:00-0500Body cedhxu759.9 cmJustin Andes DO Work Phone: [facility] [employer] Work Phone: 1([phone]) 162-409901-14-2020 13:56-0500BMI (Body Mass Index)36.4 kg/m2 [facility] Work Phone: 1(383) 13:56-0500Body Tkmnsszrere59.5 [degF][facility] Work Phone: 1(099) 13:56-0500Body mgpito15.36 kgAiKeenan Private Hospital Work Phone: 1(968) 13:56-0500BP Aohplrjsg09 mm[Hg][facility] Work Phone: 1(034) 13:56-0500BP Jchptqfv167 mm[Hg][facility] Work Phone: 1(912)[phone] 13:56-0500BSA (Body Surface Area)1.86 m2 Vahid [facility] Work Phone: 1(134)[phone] 13:56-3635Uufwzq240.94 cmAimeki [facility] Work Phone: 1(993)[phone] 13:56-0500Pulse (Heart Rate)61 /minAinhe [facility] Work Phone: [phone]([phone] 13:56-0500Pulse Wgasvgbp53 %[facility] Work Phone: 1(098)[phone] 13:56-0500Respiratory Rate18 /[facility] Work Phone: 1(583)611881-775264-20 13:56-7089XlK6% (BldA) [Mass fraction]90 % [facility] Work Phone: [facility] Work Phone: [phone] 14:21-0500Diastolic blood sqokjqce52 mm[Hg] Harish Betancourtrov [employer] Work Phone: [facility] [employer] Work Phone: 1(397) 472-878001-12-2020 14:21-1183PiP5% (BldA) [Mass fraction]95 % Harish Betancourtrov DO Work Phone: [facility] Work Phone: 1([phone] 14:21-0500Systolic blood giyyrxrr720 mm[Hg] Harish Betancourtrov DO Work Phone: [facility] [employer] Work Phone: 1(662) [phone] 13:02-0500Heart rate60 /minAlexander Bobrov DO Work Phone: [facility] Work Phone: 1(596) [phone] 12:58-0500Respiratory rate20 /minAlexander Serafinrov DO Work Phone: [facility] Work Phone: 1([phone] 10:19-0500Body fyzfkr133.9 cmAjonas Sebastian DO Work Phone: [facility] [employer] Work Phone: 1(649) 342-900501-12-2020 10:19-0500Body mass index (BMI) [Ratio]35.9 kg/s5Fxmrxkbptfortunato Sebastian DO Work Phone: [facility] [employer] Work Phone: 1(968) 465-945601-12-2020 10:19-0500Body nqzcusswwmx52.8 [degF] Harish Sebastian DO Work Phone: [facility] [employer] Work Phone: 1(609) [phone] 10:19-0500Body bzhiqi30.18 kgAlefortunato Sebastian DO Work Phone: [facility] [employer] Work Phone: 1(558) 601-297212-20-2019 08:34-0500BP Sezzthzzs92 mm[Hg][facility] Work Phone: 1([phone])[phone] 08:34-0500BP Htlkirov481 mm[Hg][facility] Work Phone: 1(174)[phone] 08:12-0500BMI (Body Mass Index)36 kg/m2 [facility] Work Phone: 1(252)[phone] 08:12-0500Body Uzlpcahfubg40.5 [degF][facility] Work Phone: 1([phone])[phone] 08:12-0500Body rvhiok21.46 kgAinhki [facility] Work Phone: 1(415)[phone]4-4979 08:12-0500BP Axmkeknhk55 mm[Hg][facility] Work Phone: 0(440)[phone] 08:12-0500BP Cyzhcyaj849 mm[Hg][facility] Work Phone: 1(704)[phone]8-5622 08:12-0500BSA (Body Surface Area)1.85 m2 [facility] Work Phone: 1(552)[phone]1-9345 08:123102Xoeduh261.94 cmAHolzer Health System Work Phone: 4(979)602-829449705-58-2456 08:12-0500Pulse (Heart Rate)73 /[facility] Work Phone: 0(047)[phone] 08:12-0500Pulse Sbalohtd07 %[facility] Work Phone: 4(116)592-824047811-60-9348 08:12-0500Respiratory Rate18 /[facility] Work Phone: 8(564)224-886417128-29-1910 08:12-7004EiZ4% (BldA) [Mass fraction]85 % [facility] Work Phone: [facility] Work Phone: 3(457)136-711949098-38-5300 14:31-0500BMI (Body Mass Index)35.5 kg/m2 [facility] Work Phone: 3(440)145-159997730-54-4004 14:31-0500Body Ffrmpamcxbq10.9 [degF][facility] Work Phone: 1(864)630-311016372-30-5258 14:31-0500Body .28 kg[facility] Work Phone: 2(665)806-640429010-14-6897 14:31-0500BP Ycolyfguz80 mm[Hg][facility] Work Phone: 0(854)892-584196189-65-9523 14:31-0500BP Fsytkzhn164 mm[Hg][facility] Work Phone: 5(497)617-706125156-50-9954 14:31-0500BSA (Body Surface Area)1.84 m2 [facility] Work Phone: 8(213)647-474390292-63-0684 14:31-8941Mgvbhi956.94 cmAimee [facility] Work Phone: 1(962) 616-319012-03-2019 14:31-0500Pulse (Heart Rate)61 /[facility] Work Phone: 1(636) 951-113112-03-2019 14:31-0500Pulse Srkdydyc66 %[facility] Work Phone: 1(548) 841-505812-03-2019 14:31-0500Respiratory Rate14 /[facility] Work Phone: 1(947) 416-260212-03-2019 14:31-1389DfG7% (BldA) [Mass fraction]88 % [facility] Work Phone: [facility] Work Phone: 1(326) [phone] 20:22-0500BP Lrubswvon95 mm[Hg][facility], WO42-93-6505 20:22-0500BP Ehywxhvd079 mm[Hg][facility], RC84-29-5692 20:22-0500Respiratory Rate16 /minNov[facility], UZ46-12-3572 16:25-0500Pulse Cotpttsw86 %[facility], YK95-59-9325 16:23-0500Body Qiiusthxrbd65.71 [degF][facility] DT64-99-3702 16:23-0500Pulse (Heart Rate)68 /minNovant Health, SC24-75-3707 09:12-0500BMI (Body Mass Index)35.6 kg/m2 [facility] Work Phone: 4(265)610-706125933-91-1393 09:12-0500Body Rprahmbbund56.7 [degF][facility] Work Phone: 1(556) [phone] 09:12-0500Body yjaurd11.55 kgAiKeenan Private Hospital Work Phone: 1(419)[phone] 09:12-0500BP Godqlgcks90 mm[Hg][facility] Work Phone: 1(731)[phone] 09:12-0500BP Uaufgnae268 mm[Hg][facility] Work Phone: 1(379)[phone]1-0829 09:12-0500BSA (Body Surface Area)1.84 m2 [facility] Work Phone: 1(591)[phone] 09:12-3221Tbgtel346.94 cmAimeNorthwest Health Physicians' Specialty [facility] Work Phone: 1(096)[phone] 09:12-0500Pulse (Heart Rate)67 /[facility] Work Phone: 0(311)469-442419501-81-8019 09:12-0500Pulse Xqqwwcdp26 %[facility] Work Phone: 1(987)[phone] 09:12-0500Respiratory Ghpw757.6 /[facility] Work Phone: 1(644)[phone]5-0047 09:12-3221VjU0% (BldA) [Mass fraction]90 % [facility] Work Phone: [facility] Work Phone: 2(070)731-090743310-25-0715 09:50-0400BMI (Body Mass Index)34.8 kg/m2 [facility] Work Phone: [phone](342)[phone] 09:50-0400Body Wyvxmtvpjiq48.4 [degF][facility] Work Phone: 2(128)104-637948526-23-6221 09:50-0400Body bmclpy09.55 kgAiKeenan Private Hospital Work Phone: 2(966)265-405970050-80-5128 09:50-0400BP Gmvfdqdmh61 mm[Hg][facility] Work Phone: 1(266)[phone]1-2907 09:50-0400BP Aejfjuig326 mm[Hg][facility] Work Phone: 1(932)[phone] 09:50-0400BSA (Body Surface Area)1.82 m2 [facility] Work Phone: 4(851)082-618490410-29-4819 09:50-7733Upjuju711.94 cmAimeNorthwest Health Physicians' Specialty Hospital Work Phone: 1(525)[phone] 09:50-0400Pulse (Heart Rate)64 /[facility] Work Phone: 0(345)[phone] 09:50-0400Pulse Chxewwti67 %[facility] Work Phone: 8(333)[phone] 09:50-0400Respiratory Rate18 /[facility] Work Phone: 2(475)[phone] 09:50-2943HiF3% (BldA) [Mass fraction]98 % [facility] Work Phone: [facility] Work Phone: 9(516)[phone] 16:41-0400BMI (Body Mass Index)34.9 kg/m2 [facility] Work Phone: 5(615)357-622949142-10-9311 16:41-0400Body Yukxicmrpup39.6 [degF][facility] Work Phone: 1(348)[phone] 16:41-0400Body enrocr93.78 [facility] Work Phone: 3(482)539-014861354-32-3317 16:41-0400BP Tlpjvgbrm27 mm[Hg][facility] Work Phone: 5(245)503-303098624-44-1799 16:41-0400BP Hnduorjw547 mm[Hg][facility] Work Phone: 7(986)302-546206672-73-1244 16:41-0400BSA (Body Surface Area)1.83 m2 [facility] Work Phone: 1(897) 110-260010-24-2019 16:41-9246Welytb187.94 [facility] Work Phone: 4(185)082-735000702-94-4198 16:41-0400Pulse (Heart Rate)63 /[facility] Work Phone: 6(402)827-650929566-74-9740 16:41-0400Pulse Japzuirb22 %[facility] Work Phone: 1(900) 277-331010-24-2019 16:41-0400Respiratory Rate18 /[facility] Work Phone: 2(722)297-784255274-93-8237 16:41-5919IkP9% (BldA) [Mass fraction]93 % [facility] Work Phone: [facility] Work Phone: 0(706)350-673578382-35-3344 12:41-0400BMI (Body Mass Index)32.12 kg/m2 [facility], [id number] 12:41-0400Body Dnkpjrrmugy54.8 [degF] [facility] GX71-43-0118 12:41-0400Body stecun23.11 [facility] [id number] 12:41-0400BP Zgcbvxgfw70 mm[Hg][facility], EV84-03-2766 12:41-0400BP Zknyyijq305 mm[Hg][facility], [id number] 12:41-6455Dzjpcz700.9 [facility] WK10-26-7939 12:41-0400Pulse (Heart Rate)75 /[place], [place] 01-13-2019 12:41-0400Pulse Mrczbwyo10 %[place], [place] 01-13-2019 12:41-0400Respiratory Rate18 /[facility], [place] 01-12-2019 14:15-0400BMI (Body Mass Index)35.1 kg/c8[facility] Work Phone: 1(331) 708-136710-14-2019 14:15-0400Body Fgrdrqljnlq63.6 [degF][facility] Work Phone: 1(240) 277-159610-14-2019 14:15-0400Body detqgb82.19 [facility] Work Phone: 1(969) 305-610810-14-2019 14:15-0400BP Xwjynoyns39 mm[Hg][facility] Work Phone: 1(905) 310-996310-14-2019 14:15-0400BP Raiaqvnw067 mm[Hg][facility] Work Phone: 1(420) 532-142110-14-2019 14:15-0400BSA (Body Surface Area)1.83 m2 [facility] Work Phone: 1(947) 522-267710-14-2019 14:15-2324Fxjekn382.94 [facility] Work Phone: [phone]) 392-696910-14-2019 14:15-0400Pulse (Heart Rate)64 /[facility] Work Phone: 1(191) 380-654110-14-2019 14:15-0400Pulse Neugbzan63 %[facility] Work Phone: 1(314) 111-203810-14-2019 14:15-0400Respiratory Rate14 /[facility] Work Phone: 1(151) 563-134010-14-2019 14:15-1445EnY8% (BldA) [Mass fraction]91 % [facility] Work Phone: [facility] Work Phone: 1(893) 937-967209-12-2019 17:39-0400BMI (Body Mass Index)32.9 kg/m2 [facility] Work Phone: [phone]([phone] 17:39-0400Body qyegxo27.06 [facility]AiKe[facility] Work Phone: [phone](882)[phone] 17:39-0400BP Ghefnpsgs80 mm[Hg][facility] Work Phone: 1(985)[phone] 17:39-0400BP Vkavyosb518 mm[Hg][facility] Work Phone: 1(637)[phone] 17:39-0400BSA (Body Surface Area)1.78 m2 [facility] Work Phone: [phone](421)[phone] 17:39-3464Kuhwaz548.94 cmAHolzer [facility] System Work Phone: 1(994)[phone] 17:39-0400Pulse (Heart Rate)85 /[facility] Work Phone: [phone] 17:39-0400Pulse Kgeuzbax82 %[facility] Work Phone: [phone](393)[phone] 17:39-0400Respiratory Rate18 /[facility] Work Phone: [phone](477)[phone] 17:39-8616DhT8% (BldA) [Mass fraction]82 % [facility] Work Phone: [facility] Work Phone: [phone] 18:09-0400BMI (Body Mass Index)34 kg/m2 [facility] Work Phone: [phone](305)[phone] 18:09-0400Body Jtobfdllmdz88.2 [degF][facility] Work Phone: [phone]([phone] 18:09-0400Body okthxb66.56 kgAiKeen[facility] Work Phone: 2(667)747-111254168-03-2764 18:09-0400BP Oeacpfpgs85 mm[Hg][facility] Work Phone: [phone](092)[phone] 18:0BP Gmknnzlz482 mm[Hg][facility] Work Phone: 2(514)[phone] 18:090BSA (Body Surface Area)1.81 m2 [facility] Work Phone: 1(042)[phone] 18:7560Vaeajd158.94 cmAHolzer [facility] System Work Phone: 1(808)946-523611-682237-34142088-55-7319 18:0Pulse (Heart Rate)67 /[facility] Work Phone: 1(576)[phone] 18:09-0Pulse Dhtpgfdh39 %[facility] Work Phone: 4(566)201-006483757-02-2489 18:090400Respiratory Rate14 /[facility] Work Phone: 2(953)469-063293902-17-7562 18:09-4885OyE4% (BldA) [Mass fraction]92 % [facility] Work Phone: [facility] Work Phone: 2(211)[phone] 11:13-0400BMI (Body Mass Index)33.4 kg/m2 [facility] Work Phone: [phone] 11:13-0400Body Uacweuepioj96.5 [degF][facility] Work Phone: 1(006)[phone] 11:13-0400Body .2 [facility]AiKe[facility] Work Phone: 8(490)878-562241253-54-4882 11:13-0400BP Spjfxdugi33 mm[Hg][facility] Work Phone: 5(438)740-783029624-53-2810 11:13-0400BP Ohhcyopn912 mm[Hg][facility] Work Phone: 1(533)[phone] 11:BSA (Body Surface Area)1.79 m2 [facility] Work Phone: 7(976)[phone] 11:6867Xnhavj736.94 cmAHolzer Health System Work Phone: 1(696)[phone] 11:0Pulse (Heart Rate)69 /[facility] Work Phone: 5(226)[phone] 11:13-0Pulse Zainwmaw33 %[facility] Work Phone: 7(544)[phone] 11:13-0Respiratory Rate18 /[facility] Work Phone: 5(547)[phone] 11:13-2584TaJ4% (BldA) [Mass fraction]91 % [facility] Work Phone: [facility] Work Phone: [phone] 17:28-0400BP Aacezmuqv46 mm[Hg][facility] Work Phone: 2(649)[phone] 17:28-0400BP Cjgsggxu618 mm[Hg][facility] Work Phone: 4(928)[phone] 16:49-0400BP Iyhviqrwo44 mm[Hg][facility] Work Phone: 3(192)[phone] 16:49-0400BP Puydtchj683 mm[Hg][facility] Work Phone: 6(640)632-049454564-00-7697 16:34-0400BMI (Body Mass Index)33.9 kg/m2 [facility] Work Phone: 3(794)[phone] 16:34-0400Body Jtctpdwurci88 [degF][facility] Work Phone: [phone](963)[phone] 16:34-0400Body zdyyuu68.38 [facility] Work Phone: 1(275)[phone] 16:34-0400BP Mimiisfsw18 mm[Hg][facility] Work Phone: 1([phone] 16:34-0400BP Udeehnus431 mm[Hg][facility] Work Phone: 1(811)[phone] 16:34-0400BSA (Body Surface Area)1.8 m2 [facility] Work Phone: 1(957)[phone] 16:34-5589Qcyuvt003.94 cmAimeNorthwest Health Phys[facility] Work Phone: 1([phone] 16:34-0400Pulse (Heart Rate)65 /[facility] Work Phone: 1(313)[phone] 16:34-0400Pulse Fqwzkkca72 %[facility] Work Phone: [phone]([phone] 16:34-0400Respiratory Rate18 /[facility] Work Phone: 1(375)[phone] 08:55-0400BMI (Body Mass Index)33.3 kg/m2 [facility] Work Phone: 1(831)[phone] 08:55-0400Body Gzrvxymvyjn47.2 [degF][facility] Work Phone: [phone]([phone] 08:55-0400Body nxpaym86.83 [facility] Work Phone: 1(578)[phone] 08:55-0400BP Nufanaryz11 mm[Hg][facility] Work Phone: 4(500)[phone] 08:55-0400BP Xoaypthd174 mm[Hg][facility] Work Phone: 7(269)[phone] 08:55-0400BSA (Body Surface Area)1.79 m2 Vahid [facility] Work Phone: 1(432)[phone] 08:55-6926Czlfsw679.94 Silviafirsthealthki [facility] Work Phone: 1([phone] 08:55-0400Pulse (Heart Rate)61 /minCommunity Healthki [facility] Work Phone: 1([phone])[phone] 08:55-0400Pulse Qiuawsqe99 %[facility] Work Phone: [phone]([phone] 08:55-0400Respiratory Rate20 /[facility] Work Phone: 1(990) 09:20-0400Body .94 Mar Nagy [facility] Work Phone: [phone] [facility] Work Phone: 1(490) 09:20-0400Body mass index (BMI) [Ratio]34.3 kg/g4Ujgnr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 Work Phone: [phone] [facility] Work Phone: 1(590) 09:20-0400Body surface area Derived from formula1.81 g7FcpzhVahid Nagy CNP Work Phone: [phone] Work Phone: [phone] 09:20-0400Body nljweecxyuu62.8 [degF]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 Work Phone: [phone] Work Phone: [phone]([phone] 09:20-0400Body isfcud09.37 kgAijuanito Nagy [facility] Work Phone: [phone] Work Phone: 3([phone]) 09:20-0400Diastolic blood dqtuolue34 mm[Hg] Vahid Nagy CNP Work Phone: [phone] Work Phone: [phone] 09:20-0400Heart rate68 /Kip Nagy CNP Work Phone: [phone] [facility] Work Phone: [phone])[phone] 09:20-0400Pulse Hqtlyvin59 %Vahid Nagy [facility] Work Phone: [phone] 09:20-0400Respiratory rate18 /Kip Nagy CNP Work Phone: [facility] Work Phone: 1(081) 09:20-2060KoK2% (BldA) [Mass fraction]98 % Vahid Nagy CNP Work Phone: [facility] Work Phone: [phone] 09:20-0400Systolic blood jilhmobu436 mm[Hg] Vahid Nagy CNP Work Phone: [facility] Work Phone: [phone] 09:27-0500Body ohemag725.94 cmAjoelle Nagy CNP Work Phone: [phone] [facility] Work Phone: [phone] 09:27-0500Body mass index (BMI) [Ratio]34.2 kg/x7AlglmVahid Nagy CNP Work Phone: [phone] [facility] Work Phone: [phone] 09:27-0500Body surface area Derived from formula1.81 e7CswmgVahid Nagy CNP Work Phone: [facility] Work Phone: [phone] 09:27-0500Body xqdtyambuyh88.6 [degF]Vahid Nagy CNP Work Phone: [phone] [facility] Work Phone: 1(346) 09:27-0500Body rawogw39.19 kgAijuanito Nagy CNP Work Phone: [phone] [facility] Work Phone: [phone] 09:27-0500Diastolic blood unrovzag71 mm[Hg] Vahid Nagy CNP Work Phone: [phone] [facility] Work Phone: [phone] 09:27-0500Heart rate71 /Kip Nagy CNP Work Phone: [facility] Work Phone: [phone] 09:27-0500Pulse Pfpallob92 %Vahid Nagy [facility] Work Phone: 1(175) 09:27-0500Respiratory rate18 /Kip Nagy CNP Work Phone: [phone] [facility] Work Phone: [phone] 09:27-4608XsR1% (BldA) [Mass fraction]92 % Vahid Nagy CNP Work Phone: [facility] Work Phone: [phone] 09:27-0500Systolic blood kbjfkfvu478 mm[Hg] Vahid Nagy CNP Work Phone: [phone] [facility] Work Phone: 1(069) 09:11-0500Body olrarx366.94 cmAjoelle Nagy CNP Work Phone: [facility] Work Phone: [phone]([phone] 09:11-0500Body mass index (BMI) [Ratio]33.7 kg/d5XjyaxVahid Nagy CNP Work Phone: [phone] [facility] Work Phone: [phone]([phone] 09:11-0500Body surface area Derived from formula1.8 j6XlgbtVahid Nagy CNP Work Phone: [phone] [facility] Work Phone: 1([phone] 09:11-0500Body hjcslgsodaa25.3 [degF]Vahid Nagy CNP Work Phone: [phone] [facility] Work Phone: 1(080) 09:11-0500Body kxttye23.79 kgVahid Nagy CNP Work Phone: [phone] [facility] Work Phone: [phone] 09:11-0500Diastolic blood exmqnbro88 mm[Hg] Vahid Nagy CNP Work Phone: [phone]-Health [facility] Work Phone: [phone] 09:11-0500Heart rate72 /Kip Nagy CNP Work Phone: [phone] [facility] Work Phone: [phone] 09:11-0500Pain Level7 1Aimeki Nagy CNP Work Phone: [phone] [facility] Work Phone: [phone] 09:11-0500Pulse Gloipijz53 %Vahid Nagy [facility] Work Phone: 1([phone] 09:11-0500Respiratory rate18 /Kip Nagy CNP Work Phone: [phone]-Health [facility] Work Phone: [phone] 09:11-8916ExY2% (BldA) [Mass fraction]92 % Vahid Nagy CNP Work Phone: [phone] [facility] Work Phone: [phone] 09:11-0500Systolic blood hxqrehyp647 mm[Hg] Vahid Nagy CNP Work Phone: [phone] Work Phone: [phone](441)[phone] 15:13-0500BMI (Body Mass Index)34.81 kg/m2 [facility] 30-872242-12464604-75-5949 15:13-0500Body Kyxyrxnpuay61.1 [degF][facility]Card[facility] 29-079462-56544794-84-0275 15:13-0500BP Hdrfpoujj43 mm[Hg]Ender [facility] 01-52 15:13-0500BP Xmvcjcqz163 mm[Hg][facility] Work Phone: [phone] 15:13-0500BSA (Body Surface Area)1.9 m2 [facility] Work Phone: [phone] 15:13-4091Trvgff723.94 cmIvaaddy [facility] Work Phone: [phone] 15:13-0500Pulse (Heart Rate)70 /[facility] 35-083361-84725322-58-4144 15:13-0500Pulse Cpjvnhhy66 %[facility] 30-52 15:13-0500Respiratory Rate20 /[facility] 27-371621-40640661-62-1070 15:13-7205Wptnir25.58 kgDel[facility] Work Phone: [phone] 13:13-0500Body uakwuw651.94 cmAjoelle Nagy CNP Work Phone: [phone] Work Phone: [phone] 13:13-0500Body mass index (BMI) [Ratio]34.8 kg/e9VhdheVahid Nagy CNP Work Phone: [phone] Work Phone: [phone] 13:13-0500Body surface area Derived from formula1.82 u5ZpuvgVahid Nagy CNP Work Phone: [phone] Work Phone: 1(970)[phone] 13:13-0500Body hppncqhbcse37.1 [degF]Vahid Nagy CNP Work Phone: [phone] Work Phone: 1([phone])[phone]9-5512 13:13-0500Body atiyjq25.46 kgVahid Nagy CNP Work Phone: [phone] Work Phone: 1([phone])[phone] 13:13-0500Body ydzquo56.58 kgAijuanito Angelita [facility] Work Phone: 1(540)[phone]3-2830 13:13-0500Diastolic blood jasvprng90 mm[Hg] 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 Work Phone: Health [facility] Work Phone: [phone] 13:13-0500Heart rate70 /Kip Nagy CNP Work Phone: Health [facility] Work Phone: [phone] 245-276712-26-2018 13:13-0500Respiratory rate20 /Kip Nagy CNP Work Phone: Health [facility] Work Phone: [phone](767)[phone] 13:13-0500Systolic blood idhdfcnf553 mm[Hg] Vahid Nagy [facility] Work Phone: [facility] Work Phone: [phone] 10:290500BMI (Body Mass Index)33.73 kg/m2 [facility] 80-961276-87434496-16-2648 10:29-0500Body Wsdqaawnufb34.4 [degF][facility] 48-687702-60451285-63-0556 10:29-0500BP Luotjfhck18 mm[Hg][facility] 36-115435-30565995-33-5348 10:29-0500BP Vfxylbbq073 mm[Hg][facility] 24-479885-80861684-51-7797 10:29-0500BSA (Body Surface Area)1.87 m2 [facility] 91-151852-37969725-28-5673 10:296709Xgzlby616.94 cmAHolzer Health System 43-30 10:29-0500Pulse (Heart Rate)91 /Kip [facility] Work Phone: [phone] 10:29-0500Pulse Xhjmdgzr24 %Vahid Nagy [facility] Work Phone: [phone] 10:29-0500Respiratory Rate18 /lionelCommunity Healthki [facility] Work Phone: [phone] 10:29-3976Upzhxm36.97 kgBetinaOhioHealth Hardin Memorial Hospital Work Phone: [phone] 08:29-0500BMI (Body Mass Index)33.7 kg/m2 Vahid [facility] Work Phone: [phone] 08:29-0500Body .94 cmAimeki Nagy CNP Work Phone: [facility] Work Phone: [phone] 08:29-0500Body mass index (BMI) [Ratio]33.6 kg/g6ZxyynVahid Nagy CNP Work Phone: [facility] Work Phone: [phone] 08:29-0500Body surface area Derived from formula1.8 i9XetreVahid Nagy CNP Work Phone: [phone] Work Phone: [phone] 08:29-0500Body pyahdvuqijq28.4 [degF]Vahid Nagy CNP Work Phone: [facility] Work Phone: [phone] 08:29-0500Body bbkmes73.74 kg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 Work Phone: [facility] Work Phone: [phone] 08:29-0500Body oiwoat70.97 Evelina Nagy [facility] Work Phone: [phone] 08:29-0500Diastolic blood mm[Hg] Vahid Nagy CNP Work Phone: Health [facility] Work Phone: [phone]6-4904 08:29-0500Heart rate91 /Kip 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 Work Phone: Health [facility] Work Phone: [phone] 08:29-0500Respiratory rate18 /Kip 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 Work Phone: Health [facility] Work Phone: [phone] 08:29-0500Systolic blood ietlnrmf947 mm[Hg] Vahid Nagy CNP Work Phone: [facility] Work Phone: [phone]8-9030 16:22-0500BMI (Body Mass Index)33.14 kg/m2 [facility] 72-554016-01878223-22-5070 16:22-0500Body Xtsmpammsdd44.5 [degF][facility] 60-010429-00513758-55-6919 16:22-0500BP Dgpdmrewb80 mm[Hg][facility] 07-897982-36281104-08-4647 16:22-0500BP Mgociwlg934 mm[Hg][facility] 36-869387-45724831-82-5394 16:22-0500BSA (Body Surface Area)1.85 m2 [facility] 49-377263-09878056-58-8225 16:22-2671Vutrke926.94 cmAimee [facility] 53-608741-61549762-44-0994 16:22-0500Pulse (Heart Rate)75 /[facility] hospitalBetin[facility] 11-12-2018 16:22-0500Pulse Lfjttqvq65 %Vahid Angelita [facility] 98-351486-50385197-34-7839 16:22-0500Respiratory Rate20 /minVahid [facility] 74-436184-79503217-62-6112 16:22-7755Cydcck52.55 kg[facility] 79-890462-35442212-81-9557 14:22-0500Body .94 cmAjoelle 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 Work Phone: [facility] Work Phone: [phone] 14:22-0500Body mass index (BMI) [Ratio]33.1 kg/h8SifoqVahid Nagy [facility] Work Phone: [facility] Work Phone: [phone]6-5628 14:22-0500Body surface area Derived from formula1.78 j5RozhkVahid Nagy [facility] Work Phone: [facility] Work Phone: 1([phone])[phone]0-8214 14:22-0500Body svkfkaeitsv94.5 [degF]Vahid Nagy CNP Work Phone: [facility] Work Phone: [phone]2-7721 14:22-0500Body .38 Evelina Nagy CNP Work Phone: [facility] Work Phone: [phone](672)[phone]9-1386 14:22-0500Body uenwvm43.55 alizeTogus [facility] Medical Center Work Phone: [phone] 14:22-0500BSA (Body Surface Area)1.79 m2 Vahid [facility] Work Phone: [phone] 14:22-0500Diastolic blood gczqtvif22 mm[Hg] Vahid Nagy CNP Work Phone: [facility] Work Phone: 1([phone] 826-156411-12-2018 14:22-0500Heart rate75 /Kip Nagy CNP Work Phone: [facility] Work Phone: [phone]([phone] 747-663311-12-2018 14:-0500Respiratory rate20 /Kip Nagy CNP Work Phone: [facility] Work Phone: 1([phone] 407-463211-12-2018 14:-0500Systolic blood mosrucrp961 mm[Hg] Vahid Nagy CNP Work Phone: [facility] Work Phone: 1([phone] 180-241510-22-2018 12:-0400BMI (Body Mass Index)33.44 kg/m2 [facility] 37-013583-97163072-76-0296 12:-0400Body Wizkwmgywdd57.3 [degF][facility] 69-204758-36254302-41-3259 12:01-0400BP Kpcxzqstb20 mm[Hg][facility] 95-374199-33383542-88-8333 12:-0400BP Mzebnmis342 mm[Hg][facility] 49-565998-01771974-71-4650 12:-0400BSA (Body Surface Area)1.86 m2 [facility] 99-479625-78514759-00-3791 12:9748Gigaex311.94 cmAimee [facility] 31-383081-30982613-79-4864 12:-0400Pulse (Heart Rate)71 /[facility] hospitalBetinanhki [facility] 83-197175-42488064-25-8268 12:01-0400Pulse Zzdkzbtx06 %[facility] 52-708324-15823201-56-8074 12:3772Vqkxfa84.29 kgAiOhioHealth Hardin [facility] Hospital 10-22-2018 11:01-0400BMI (Body Mass Index)33.44 kg/m2W [facility] Work Phone: [phone] 11:0400Body Gtoxocubyhw50.3 [degF]W [facility] Work Phone: [phone] 11:-0400BP Gpbabsudv04 mm[Hg]W [facility] 72-05 11:01-0400BP Fehrleiz779 mm[Hg]W [facility] 82-28 11:040BSA (Body Surface Area)1.86 m2W [facility] 70-45 11:-7367Zzfhpn329.94 cmW [facility] 64-18 11:01-0400Pulse (Heart Rate)71 /minW [facility] 57-09 11:01-0400Pulse Zpggkyvb80 %W [facility] 02-16 11:7254Ajmwsd58.29 kgW [facility] 30-36 09:01-0400Body wlrrqu412.94 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 Work Phone: [phone] [facility] Work Phone: [phone] 09:01-0400Body mass index (BMI) [Ratio]33.4 kg/y3Xxtxujuanito Nagy CNP Work Phone: [phone] Work Phone: [phone] 09:01-0400Body surface area Derived from formula1.79 m8Drohqjuanito Nagy CNP Work Phone: [phone] [facility] Work Phone: [phone] 09:01-0400Body .3 [degF]Vahid Nagy CNP Work Phone: [facility] Work Phone: [phone] 09:01-0400Body zhgehv55.29 kgAijuanito Nagy CNP Work Phone: [facility] Work Phone: [phone] 09:01-0400Diastolic blood hkfhcyjl10 mm[Hg] Vahid Nagy CNP Work Phone: [facility] Work Phone: [phone] 09:01-0400Heart rate71 /minVahid Nagy CNP Work Phone: [facility] Work Phone: [phone] 09:01-0400Systolic blood eylpxytj693 mm[Hg] Vahid Nagy CNP Work Phone: [facility] Work Phone: [phone] 12:59-0400BMI (Body Mass Index)33.25 kg/m2 [facility] 10-98 12:59-0400Body Sraepxsrpqv75.1 [degF][facility] Work Phone: [phone] 12:59-0400BP Uzxgvlmob88 mm[Hg][facility] Work Phone: [phone] 12:59-0400BP Cqvrastr394 mm[Hg][facility] Work Phone: [phone] 12:59-0400BSA (Body Surface Area)1.85 m2 [facility] Work Phone: [phone] 12:59-6155Aqoqlz794.94 [facility] Work Phone: [phone] 12:59-0400Pulse (Heart Rate)62 /[facility]elSelect [facility] Work Phone: [phone] 12:59-0400Pulse Mfcysxud18 %Vahidchristiano BrewerFormerly [facility] 61-06 12:59-0400Respiratory Rate20 /[facility] Work Phone: [phone] 12:59-8025Eiafua59.83 kgSelect [facility] Work Phone: [phone] 11:59-0400BMI (Body Mass Index)33.25 kg/m2 [facility] Work Phone: [phone] 11:59-0400Body Fjjqqjctuzd13.1 [degF][facility] Work Phone: [phone] 11:59-0400BP Jdyococxf47 mm[Hg][facility] Work Phone: [phone] 11:59-0400BP Yzajqhzn122 mm[Hg][facility] Work Phone: [phone] 11:59-0400BSA (Body Surface Area)1.85 m2 [facility] Work Phone: [phone] 11:59-8397Ppzmwc174.94 cmAfirsthealthe [facility] 80-03 11:59-0400Pulse (Heart Rate)62 /[facility] Work Phone: [phone] 11:59-0400Pulse Kxpnnppu72 %[facility] 70-25 11:59-0400Respiratory Rate20 /[facility] Work Phone: [phone] 11:59-1159Ulfhvr11.83 kgSelect [facility] Work Phone: [phone] 09:59-0400Body lejfao820.94 cmAjoelle Nagy CNP Work Phone: [facility] Work Phone: [phone] 09:59-0400Body mass index (BMI) [Ratio]33.3 kg/b7ShlvlVahid Nagy CNP Work Phone: [phone] [facility] Work Phone: [phone] 09:59-0400Body surface area Derived from formula1.79 d1Otioyjuanito Nagy CNP Work Phone: [phone] [facility] Work Phone: [phone] 09:59-0400Body .1 [degF]Vahid Nagy CNP Work Phone: Health [facility] Work Phone: [phone] 09:59-0400Body ihblrg00.83 kgAijuanito Nagy CNP Work Phone: Health [facility] Work Phone: [phone] 09:59-0400Diastolic blood zruyiowf83 mm[Hg] Vahid Nagy CNP Work Phone: [phone] [facility] Work Phone: [phone] 09:59-0400Heart rate62 /Kip Nagy CNP Work Phone: [phone] [facility] Work Phone: [phone] 09:59-0400Respiratory rate20 /Kip Nagy CNP Work Phone: [phone] [facility] Work Phone: [phone] 09:59-0400Systolic blood ogtmtdvw136 mm[Hg] Vahid Nagy CNP Work Phone: Health [facility] Work Phone: [phone] 13:31-0400BMI (Body Mass Index)32.52 kg/m2 [facility] 88-622859-07773790-18-4410 13:31-0400Body Dvfyrxbqfmg72 [degF][facility] 32-026353-90437853-30-5075 13:31-0400BP Rnpdxklwa81 mm[Hg][facility] 96-303881-81453518-09-0496 13:31-0400BP Zebadrtl616 mm[Hg][facility] 05-201223-03019635-41-9338 13:31-0400BSA (Body Surface Area)1.83 m2 [facility] 34-013222-37006555-06-2745 13:31-9464Xgrudn591.94 cmAHolzer [facility] 00-621403-31419252-94-7572 13:31-0400Pulse (Heart Rate)70 /[facility] 34-459805-45337368-01-7419 13:31-0400Pulse Aoyuezon30 %[facility] 80-738518-70757591-37-1207 13:31-0400Respiratory Rate18 /[facility] 05-118888-09659466-09-6908 13:31-2721Tfpxzb66.08 kg[facility] 08-28-2018 12:31-0400BMI (Body Mass Index)32.52 kg/m2 [facility] 34-252619-86037861-40-5291 12:31-0400Body Hwlwqragkyc66 [degF][facility] 49-996579-69971325-73-8023 12:31-0400BP Pwzfnvcuo29 mm[Hg][facility] 08-28-2018 12:31-0400BP Kljlunpz657 mm[Hg][facility] 08-28-2018 12:310BSA (Body Surface Area)1.83 m2 Vahid [facility] Work Phone: [phone] 12:31-8142Avqwdq081.94 Mar [facility] Work Phone: [phone] 12:31-0400Pulse (Heart Rate)70 /minCommunity Healthki [facility] 09-28 12:31-0400Pulse Rptfpqrj35 %[facility]id [facility] Work Phone: [phone] 12:31-0400Respiratory Rate18 /[facility] Work Phone: [phone] 12:312295Auxzff02.08 kgCommunity Healthki [facility] Work Phone: [phone] 10:31-0400Body fjgzad449.94 Mar Nagy [facility] Work Phone: Health [facility] Work Phone: [phone] 10:31-0400Body mass index (BMI) [Ratio]32.5 kg/m3ZketfVahid Nagy CNP Work Phone: [phone] Work Phone: [phone] 10:31-0400Body surface area Derived from formula1.77 k5ElzjoVahid Nagy [facility] Work Phone: [phone] Work Phone: [phone] 10:31-0400Body ykfpgqdfmbn11 [degF]Vahid Nagy CNP Work Phone: [phone] Work Phone: [phone] 10:31-0400Body swvlza91.02 kgVahid Nagy CNP Work Phone: [phone] Work Phone: [phone] 10:31-0400Diastolic blood qztciqma44 mm[Hg] Vahid Nagy CNP Work Phone: Health [facility] Work Phone: [phone] 10:31-0400Heart rate70 /Kip Nagy CNP Work Phone: Health [facility] Work Phone: [phone] 10:31-0400Respiratory rate18 /Kip 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 Work Phone: Health [facility] Work Phone: [phone] 10:31-0400Systolic blood wcwuwzvn551 mm[Hg] Vahid Nagy CNP Work Phone: Health [facility] Work Phone: [phone] 12:21-0400BP Nfgxenlwx35 mm[Hg][facility] Work Phone: [phone] 12:21-0400BP Kxlglfbh322 mm[Hg][facility] Work Phone: [phone] 12:11-0400BMI (Body Mass Index)33.07 kg/m2 [facility] 62-14 12:11-0400Body Dhlnketsfec03.7 [degF][facility] Work Phone: [phone] 12:11-0400BP Pwrdqfgqb894 mm[Hg][facility] Work Phone: [phone] 12:11-0400BP Riegqkbk726 mm[Hg][facility] Work Phone: [phone] 12:11-0BSA (Body Surface Area)1.85 m2 [facility] Work Phone: [phone] 12:113798Jtooxv846.94 cmAHolzer Health System Work Phone: [phone] 12:11-0400Pulse (Heart Rate)72 /[facility]el[facility] Work Phone: [phone] 12:11-0400Pulse Hcmhswep26 %[facility] Work Phone: [phone] 12:11-0400Respiratory Rate20 /[facility] Work Phone: [phone] 12:11-2951Wwssld93.38 kgAiOhioHealth [facility]in [facility] Work Phone: [phone] 11:21-0400BP Gghyuqear24 mm[Hg][facility] Work Phone: [phone] 11:21-0400BP Vwaknclx274 mm[Hg][facility] Work Phone: [phone] 11:11-0400BMI (Body Mass Index)33.07 kg/m2 [facility] Work Phone: [phone] 11:11-0400Body Yllqtjyqmod68.7 [degF][facility] Work Phone: [phone] 11:11-0400BP Cnfongxcf296 mm[Hg][facility] Work Phone: [phone] 11:11-0400BP Hvsihdup789 mm[Hg][facility] Work Phone: [phone] 11:110400BSA (Body Surface Area)1.85 m2 [facility] Work Phone: [phone] 11:112072Cndbog413.94 cmAfirsthealthe [facility] Work Phone: [phone] 11:110400Pulse (Heart Rate)72 /[facility] Work Phone: [phone] 11:11-0400Pulse Stfrefsw67 %Vahid Angelita [facility] Work Phone: [phone] 11:11-0400Respiratory Rate20 /minVahid [facility] 35-84 11:111314Wmzrua36.38 kgCommunity Healthki [facility] 60-43 09:21-0400Diastolic blood hecclvvx42 mm[Hg] Vahid Nagy [facility] Work Phone: [phone] [facility] Work Phone: [phone] 09:21040Systolic blood satebkde376 mm[Hg] Vahid Nagy [facility] Work Phone: [phone] [facility] Work Phone: [phone] 09:11-0400Body mzzzyy734.94 cmAimeki 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 Work Phone: [phone] [facility] Work Phone: [phone] 09:11-0400Body mass index (BMI) [Ratio]33.1 kg/h4KkwqhVahid Nagy [facility] Work Phone: [phone] [facility] Work Phone: [phone] 09:11-0400Body surface area Derived from formula1.78 j2XnjraVahid Nagy CNP Work Phone: [phone] [facility] Work Phone: [phone] 09:110400Body bcpvpxvyrdk50.7 [degF]Vahid Nagy CNP Work Phone: [phone] [facility] Work Phone: [phone] 09:110400Body excyom69.38 kg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 Work Phone: [phone] Work Phone: [phone] 09:11-0400Diastolic blood mm[Hg]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 Work Phone: [phone] [facility] Work Phone: [phone] 09:11-0400Heart rate72 /Kip 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 Work Phone: Health [facility] Work Phone: [phone] [phone] 09:11-0400Respiratory rate20 /Kip 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 Work Phone: Health [facility] Work Phone: [phone] [phone] 09:11-0400Systolic blood vipxdqrq909 mm[Hg] Vahid Nagy CNP Work Phone: Health [facility] Work Phone: [phone] [phone] 17:33-0400BMI (Body Mass Index)34.98 kg/m2 [facility] 78-507905-86648547-13-8628 17:33-0400Body Pmvwxerysvk35.7 [degF][facility] 93-350034-14016963-84-0282 17:33-0400BP Vtcmtvwxo23 mm[Hg][facility] 07-12-2018 17:33-0400BP Rjqwzwfk928 mm[Hg][facility] 77-490137-47604309-31-7004 17:33-0400BSA (Body Surface Area)1.9 r1CsoimOhioHealth [facility] 94-132756-43510323-93-2604 17:33-1470Bvwhrc656.94 cmAimee [facility] 07-12-2018 17:33-0400Pulse (Heart Rate)80 /[facility] 12-206600-93848905-49-0803 17:33-0400Pulse Nyifzgpq57 %[facility] 07-12-2018 17:33-0400Respiratory Rate20 /Mariannhe [facility] Work Phone: ([phone]) 17:33-9647Kkcktk32.97 alizejuanito BrewerParrish Medical Center Work Phone: [phone] 16:33-0400BMI (Body Mass Index)34.98 kg/m2 [facility] Work Phone: [phone] 16:33-0400Body Bzngjebadii69.7 [degF][facility] Work Phone: [phone] 16:33-0400BP Qitwpmjcu43 mm[Hg][facility] Work Phone: [phone] 16:33-0400BP Hcbxhxff208 mm[Hg][facility] 99-28 16:33-0400BSA (Body Surface Area)1.9 m2[facility] 20-50 16:33-9560Twgxll827.94 cmLukki [facility] 48-93 16:33-0400Pulse (Heart Rate)80 /[facility] 20-09 16:33-0400Pulse Xsrganej84 %[facility] Work Phone: [phone] 16:33-0400Respiratory Rate20 /[facility] Work Phone: [phone] 16:33-7102Zjnthr56.97 kgH[facility] Work Phone: [phone] 14:33-0400Body iqkmrl820.94 Teresaki Nagy CNP Work Phone: [facility] Work Phone: [phone] 14:33-0400Body mass index (BMI) [Ratio]35 kg/a0JvrbfVahid Nagy CNP Work Phone: [facility] Work Phone: [phone] 14:33-0400Body surface area Derived from formula1.83 b2Uaruvjuanito Nagy CNP Work Phone: Health [facility] Work Phone: [phone] 14:33-0400Body univkwvgtfd21.7 [degF]Vahid Nagy CNP Work Phone: [phone] [facility] Work Phone: [phone] 14:33-0400Body mvohfj06.92 kgAijuanito Nagy CNP Work Phone: Health [facility] Work Phone: [phone] 14:33-0400Diastolic blood nciqogmk41 mm[Hg] Vahid aNgy CNP Work Phone: Health [facility] Work Phone: [phone] 14:33-0400Heart rate80 /minVahid Nagy CNP Work Phone: [phone] [facility] Work Phone: [phone] 14:33-0400Respiratory rate20 /Kip Nagy CNP Work Phone: Health [facility] Work Phone: [phone] 14:33-0400Systolic blood zljhhqur738 mm[Hg] Vahid Nagy CNP Work Phone: Health [facility] Work Phone: [phone] 12:54-0400BMI (Body Mass Index)35.05 kg/m2 [facility] 22-601586-63342026-79-0150 12:54-0400Body Omcfoegqvbn20 [degF][facility] 33-638633-66839243-46-6178 12:54-0400BP Rgwrrqqip90 mm[Hg][facility] 91-222911-02626057-45-9416 12:54-0400BP Rjehzfgm066 mm[Hg][facility] 27-726089-02582164-62-4011 12:54-0400BSA (Body Surface Area)1.9 o3Ezsib [facility] Work Phone: [phone] 12:54-5024Yfrdoj265.94 cmAimee [facility] 96-856530-01725683-00-3884 12:54-0400Pulse (Heart Rate)72 /minCommunity Healthki [facility] Work Phone: [phone] 12:54-0400Pulse Wllzwmps44 %Vahid AngelitaFormerly [facility] 55-882122-92102279-51-5587 12:54-0400Respiratory Rate18 /[facility] 87-462344-84698421-25-5160 12:54-1772Evvqqg60.14 kgAinhki [facility] Work Phone: [phone] 11:54-0400BMI (Body Mass Index)35.05 kg/m2 [facility] 58-842379-01513273-52-9522 11:54-0400Body Xnyejexbtib58 [degF][facility]doCard[facility] 44-309706-50625166-96-8314 11:54-0400BP Bbcqvhrwf87 mm[Hg][facility]do[facility] 05-467775-27953496-07-2477 11:54-0400BP Qihpezzd531 mm[Hg][facility] 85-926399-98589025-25-2980 11:54-0400BSA (Body Surface Area)1.9 m2 [facility] 75-238067-31292940-85-1103 11:54-4250Bmoaej807.94 cmSjeane Grimaldo [facility] 94-287157-60724820-03-2686 11:54-0400Pulse (Heart Rate)72 /minSjeane GrimaldoCardinal [facility] 50-468513-27511423-61-7340 11:54-0400Pulse Klgsvntx05 %Zach Grimaldo [facility] 03-19 11:54-0400Respiratory Rate18 /minSjeane GrimaldoCard[facility] 13-61 11:54-3279Cvints85.14 kgZach Grimaldo [facility] 01-79 09:54-0400Body uedafw296.94 cmAimeki Nagy CNP Work Phone: [phone] Work Phone: [phone] 09:54-0400Body mass index (BMI) [Ratio]35 kg/c1GirzrVahid Nagy CNP Work Phone: [phone] Work Phone: [phone] 09:54-0400Body surface area Derived from formula1.83 o0ZguixVahid Nagy CNP Work Phone: [phone] Work Phone: [phone] 09:54-0400Body npuocievzyq66 [degF]Vahid Nagy CNP Work Phone: [phone] Work Phone: [phone] 09:54-0400Body asqlxg66.92 kgVahid Nagy CNP Work Phone: [phone] [facility] Work Phone: [phone] 09:54-0400Diastolic blood tdtejkpl22 mm[Hg] Vahid Nagy CNP Work Phone: [phone] Work Phone: [phone] 09:54-0400Heart rate72 /Kip Nagy CNP Work Phone: [phone] Work Phone: [phone] 09:54-0400Respiratory rate18 /Kip Nagy CNP Work Phone: [phone] [facility] Work Phone: [phone] 09:54-0400Systolic blood amlewmxe004 mm[Hg] Vahid Nagy [facility] Work Phone: Health [facility] Work Phone: [phone] 12:55-0400BMI (Body Mass Index)35.36 kg/m2 [facility] Work Phone: [phone] 12:55-0400Body Gdxelrfabfv05.7 [degF][facility] Work Phone: [phone] 12:55-0400BP Yjibjwgsf29 mm[Hg][facility] Work Phone: [phone] 12:55-0400BP Ftqzlqot160 mm[Hg][facility] Work Phone: [phone] 12:55-0400BSA (Body Surface Area)1.91 m2 [facility] Work Phone: [phone] 12:55-4023Gtijex778.94 cmAimeNorthwest Health Phys[facility] 80-863212-22738219-04-8389 12:55-0400Pulse (Heart Rate)77 /[facility] Work Phone: [phone] 12:55-0400Pulse Pykhzakj68 %[facility] Work Phone: [phone] 12:55-0400Respiratory Rate18 /[facility] Work Phone: [phone] 12:55-1996Lniybo93.88 kgSelect [facility] 79-425623-92114396-33-8050 11:55-0400BMI (Body Mass Index)35.36 kg/m2 Zachernestina [facility]doCard[facility] 58-847309-56091916-21-3130 11:55-0400Body Epjkedbinzj22.7 [degF][facility] 05-18-2018 11:55-0400BP Wpjvrwifb66 mm[Hg][facility] 21-22 11:55-0400BP Macjbcnk752 mm[Hg][facility] 02-40 11:55-0400BSA (Body Surface Area)1.91 m2 [facility] 74-49 11:55-4645Hmtkjf522.94 cmSjeane [facility] 47-23 11:55-0400Pulse (Heart Rate)77 /Lise [facility] 85-66 11:55-0400Pulse Objzrrzw79 %Zach [facility] 88-38 11:55-0400Respiratory Rate18 /Lise [facility] 00-46 11:55-4441Oalmxq66.88 kgZach Grimaldo [facility] 06-56 09:55-0400Body bfkcua037.94 Silviajoelle Nagy CNP Work Phone: [phone] Work Phone: [phone] 09:55-0400Body mass index (BMI) [Ratio]35.3 kg/p9Yycpjjuanito Nagy CNP Work Phone: [phone] Work Phone: [phone] 09:55-0400Body surface area Derived from formula1.84 d7Nkrwpjuanito Nagy CNP Work Phone: [phone] Work Phone: [phone] 09:55-0400Body vpneyohznhj02.7 [degF]Vahidchristiano Nagy CNP Work Phone: [phone] Work Phone: [phone] 09:55-0400Body hafmks09.82 kgAijuanito Nagy CNP Work Phone: Health [facility] Work Phone: [phone] 09:55-0400Diastolic blood btzvahgt98 mm[Hg] Vahid Nagy CNP Work Phone: Health [facility] Work Phone: [phone] 09:55-0400Heart rate77 /Kip Nagy CNP Work Phone: Health [facility] Work Phone: [phone] 09:55-0400Respiratory rate18 /Kip Nagy CNP Work Phone: Health [facility] Work Phone: [phone] 09:55-0400Systolic blood shluyodm590 mm[Hg] Vahid Nagy CNP Work Phone: Health [facility] Work Phone: [phone] 12:55-0400BMI (Body Mass Index)35.55 kg/m2 [facility] Work Phone: [phone] 12:55-0400Body Tytcwnkuayc73.2 [degF][facility] Work Phone: [phone] 12:55-0400BP Slobbkqaa37 mm[Hg][facility] Work Phone: [phone] 12:55-0400BP Lvimquwz535 mm[Hg][facility] Work Phone: [phone] 12:55-0400BSA (Body Surface Area)1.92 m2 [facility] 91-67 12:55-8328Itdkoq506.94 cmAimeNorthwest Health [facility] Work Phone: [phone] 12:55-0400Pulse (Heart Rate)82 /minAimee [facility] Work Phone: [phone] 12:55-0400Pulse Ldueblsl49 %Vahid Angelita [facility] Work Phone: [phone] 12:55-0400Respiratory Rate18 /Kip [facility] Work Phone: [phone] 12:55-0966Bdebin23.33 Evelina [facility] Work Phone: [phone] 11:55-0400BMI (Body Mass Index)35.55 kg/m2 [facility] Work Phone: [phone] 11:55-0400Body Nbndrohgtki17.2 [degF][facility] Work Phone: [phone] 11:55-0400BP Wzhxjykmk28 mm[Hg][facility]doCard[facility] Work Phone: [phone] 11:55-0400BP Ugrlfaxd901 mm[Hg][facility] Work Phone: [phone] 11:55-0400BSA (Body Surface Area)1.92 m2 [facility] 32-027713-23087761-76-2432 11:55-4543Pdvxqf642.94 cmSjeane [facility] Work Phone: [phone] 11:55-0400Pulse (Heart Rate)82 /minSjeane GrimaldoCardinal [facility] 93-595300-35153742-00-9964 11:55-0400Pulse Ncrkbijy48 %Zach Grimaldo [facility] Work Phone: [phone] 11:55-0400Respiratory Rate18 /Lise [facility] 77-278106-81392324-65-3417 11:55-8760Mjghlt24.33 alizeshirley Grimaldo [facility] 28-702211-01714630-62-2781 09:55-0400Body .94 Silviajoelle Nagy CNP Work Phone: [facility] Work Phone: [phone] 09:55-0400Body mass index (BMI) [Ratio]35.5 kg/w6TwrqjVahid Nagy CNP Work Phone: [phone] [facility] Work Phone: [phone] 09:55-0400Body surface area Derived from formula1.84 x1Sfdjajuanito Nagy CNP Work Phone: Health [facility] Work Phone: [phone] 09:55-0400Body xorqbomniht21.2 [degF]Vahid Nagy CNP Work Phone: Health [facility] Work Phone: [phone] 09:55-0400Body mtyovk36.28 kgAijuanito Nagy CNP Work Phone: [phone] [facility] Work Phone: [phone] 09:55-0400Diastolic blood heoczkmj52 mm[Hg] Vahid Nagy CNP Work Phone: [phone] [facility] Work Phone: [phone] 09:55-0400Heart rate82 /Kip Nagy CNP Work Phone: [phone] [facility] Work Phone: [phone] 09:55-0400Respiratory rate18 /Kip Nagy CNP Work Phone: Health [facility] Work Phone: [phone] 09:55-0400Systolic blood xauyxuan293 mm[Hg] Vahid Nagy CNP Work Phone: Health [facility] Work Phone: [phone] 14:54-0400BMI (Body Mass Index)35.33 kg/m2 [facility] Work Phone: [phone] 14:54-0400Body Svrqbntnzis22.1 [degF][facility] Work Phone: [phone] 14:54-0400BP Cyjzpxnla07 mm[Hg][facility] 05-05 14:54-0400BP Yfxvtabs645 mm[Hg][facility] 46-70 14:54-0400BSA (Body Surface Area)1.91 m2 [facility] 33-57 14:54-9050Yttkoa425.94 cmAimee [facility] 69-36 14:54-0400Pulse (Heart Rate)69 /[facility] 79-93 14:54-0400Pulse Rdgyhios64 %[facility] 67-64 14:54-0400Respiratory Rate20 /[facility] 97-82 14:54-7491Vtmhme74.82 kg[facility] 84-91 13:54-0400BMI (Body Mass Index)35.33 kg/m2 [facility] 32-53 13:54-0400Body Awebeyburze85.1 [degF][facility] 85-40 13:54-0400BP Yawqjloyp31 mm[Hg][facility] 60-60 13:54-0400BP Fdbjohyc758 mm[Hg][facility] 22-79 13:54-0400BSA (Body Surface Area)1.91 m2 [facility] Work Phone: [phone] 13:54-1783Ykoenr227.94 cmSjeane [facility] 16-73 13:54-0400Pulse (Heart Rate)69 /[facility] 30-14 13:54-0400Pulse Vngxrkhu36 %Zach Grimaldo [facility] 93-81 13:54-0400Respiratory Rate20 /[facility] 45-15 13:54-7638Jvrpqz27.82 kgZach Grimaldo [facility] 90-52 11:54-0400Body uavtcj029.94 Mar Nagy CNP Work Phone: [phone] Work Phone: [phone] 11:54-0400Body mass index (BMI) [Ratio]35.3 kg/f4SudztVahid Nagy CNP Work Phone: [phone] [facility] Work Phone: [phone] 11:54-0400Body surface area Derived from formula1.84 h3VfpjoVahid Nagy CNP Work Phone: [phone] Work Phone: [phone] 11:54-0400Body mksohevwihm07.1 [degF]Vahid Nagy CNP Work Phone: [phone] Work Phone: [phone] 11:54-0400Body wtyiwf12.82 kgVahid Nagy CNP Work Phone: [phone] Work Phone: [phone] 11:54-0400Diastolic blood mm[Hg] Vahid Nagy CNP Work Phone: [phone] Work Phone: [phone] 11:54-0400Heart rate69 /Kip Nagy CNP Work Phone: Health [facility] Work Phone: [phone] 11:54-0400Respiratory rate20 /Kip Nagy CNP Work Phone: Health [facility] Work Phone: [phone] 495-920604-30-2018 11:54-0400Systolic blood umortsaq392 mm[Hg] Vahid Nagy CNP Work Phone: Health [facility] Work Phone: [phone] 495-789411-17-2017 15:36-0500BMI (Body Mass Index)39.32 kg/m2 [facility] 11-17-2017 15:36-0500Body Rzhfhtfdmwe41.3 [degF][facility] 11-17-2017 15:36-0500BP Hcyvttukq16 mm[Hg][facility] 11-17-2017 15:36-0500BP Exrwuhgo152 mm[Hg][facility] 05-343812-05463128-98-5805 15:36-0500BSA (Body Surface Area)2.02 m2 [facility] 11-17-2017 15:36-3927Whrhzn827.94 cmAimee [facility] 11-17-2017 15:36-0500Pulse (Heart Rate)78 /[facility] 11-17-2017 15:36-0500Pulse Piwotmmg26 %[facility] 11-17-2017 15:36-0500Respiratory Rate22 /[facility] hospitalBetinanhki [facility] 11-17-2017 15:36-3253Cbndcy51.41 [facility] 60-623198-09595617-20-0780 14:36-0500BMI (Body Mass Index)39.32 kg/m2 [facility] 19-832693-53944223-33-8152 14:36-0500Body Ntkrffeqxcz08.3 [degF][facility]doCard[facility] 48-476147-42360129-98-5272 14:36-0500BP Wdmkfwrkm96 mm[Hg][facility] 11-17-2017 14:36-0500BP Ctctmzvi394 mm[Hg][facility] 11-17-2017 14:36-0500BSA (Body Surface Area)2.02 m2 [facility] 11-17-2017 14:36-2330Zjylha896.94 cmSjeane [facility] 07-489052-86006449-49-4461 14:36-0500Pulse (Heart Rate)78 [facility] 11-17-2017 14:36-0500Pulse Kwwzilqh37 %Zach [facility] 11-17-2017 14:36-0500Respiratory Rate22 /minSjeane [facility] 11-17-2017 14:36-6807Wjrjfb54.41 Deb Grimaldo [facility] 10-17-2017 13:35-0400BMI (Body Mass Index)40.08 kg/m2 Vahid [facility] 10-17-2017 13:35-0400Body Mqwbbbdmpzf57.8 [degF][facility] 10-17-2017 13:35-0400BP Fgmtcjkfe85 mm[Hg][facility] 10-17-2017 13:35-0400BP Wkhflamh717 mm[Hg][facility] 38-004972-74049952-27-3065 13:35-0400BSA (Body Surface Area)2.04 m2 [facility] 10-17-2017 13:35-0400BSA (Body Surface Area)2.03 m2 [facility] 10-17-2017 13:35-0694Rvlhis804.94 cmAimee [facility] 10-17-2017 13:35-0400Pulse (Heart Rate)73 /[facility] 10-17-2017 13:35-0400Pulse Qmzxnrfc04 %[facility] 10-17-2017 13:35-0400Respiratory Rate20 /[facility] 10-17-2017 13:35-1294Hzigal77.22 [facility] 10-17-2017 12:35-0400BMI (Body Mass Index)40.08 kg/m2 [facility] 34-684446-76692070-04-7148 12:35-0400Body Uenshuidkkl26.8 [degF][facility]anCard[facility] 10-17-2017 12:35-0400BP Cmxiyhzvu73 mm[Hg][facility]do[facility] 10-17-2017 12:35-0400BP Abubqnra350 mm[Hg][facility] 10-17-2017 12:35-0400BSA (Body Surface Area)2.04 m2 [facility] 10-17-2017 12:35-0400BSA (Body Surface Area)2.03 m2 [facility] [id number] 12:35-1826Txmkdd440.94 cmSjeane [facility] 11-016332-61457286-55-3958 12:35-0400Pulse (Heart Rate)73 /minSjeane [facility] 70-462779-32178577-90-8415 12:35-0400Pulse Nkvopfvd77 %Zach Grimaldo [facility] 10-17-2017 12:35-0400Respiratory Rate20 /[facility]ie [facility] 59-768038-65304717-93-7608 12:35-6769Ngrdgz81.22 kgStshirley [facility] 23-403323-97018596-40-8820 13:31-0400BMI (Body Mass Index)39.16 kg/m2 [facility] 24-550385-76669543-83-9588 13:31-0400Body Jlpcudftnjm93.9 [degF][facility] Work Phone: [phone] 13:31-0400BP Iepvjotoz39 mm[Hg][facility] Work Phone: [phone] 13:31-0400BP Kptfukcg114 mm[Hg][facility] 67-058724-01146577-41-7705 13:31-0400BSA (Body Surface Area)2.01 m2 [facility] 73-987194-72253523-53-4633 13:31-9074Ttvfjj937.94 cmAimee [facility] 06-966178-85554839-24-5612 13:31-0400Pulse (Heart Rate)72 /minAimee [facility] Work Phone: [phone] 13:31-0400Pulse Edwbrtlk92 %Vahid Nagy [facility] Work Phone: [phone] 13:31-0400Respiratory Rate22 /lioneljuanito [facility] Work Phone: [phone] 13:1551Qisaop11.01 Evelina [facility] Work Phone: [phone] 12:31-0400BMI (Body Mass Index)39.16 kg/m2 [facility] Work Phone: [phone] 12:31-0400Body Xsuresqrhmm96.9 [degF][facility]doCard[facility] Work Phone: [phone] 12:31-0400BP Wwgaildlo08 mm[Hg][facility]do[facility] 01-65 12:31-0400BP Zgpssmxu723 mm[Hg][facility]doCard[facility] Work Phone: [phone] 12:31-0BSA (Body Surface Area)2.01 m2 [facility] Work Phone: [phone] 12:31-3373Gjeghg049.94 cmSjeane [facility] Work Phone: [phone] 12:310Pulse (Heart Rate)72 /minSjeane GrimaldoCardinal [facility] Hospital Work Phone: [phone] 12:31-0400Pulse Aspqtsvg07 %Zach Grimaldo [facility] Work Phone: [phone] 12:310400Respiratory Rate22 /Lise [facility]doCard[facility] Work Phone: [phone] 12:313879Neqmac30.01 Deb Grimaldo [facility] 79-775059-52444373-60-4503 11:14-0500BMI (Body Mass Index)40.32 kg/m2 [facility] 87-900801-37331720-97-8485 11:14-0500Body Tcgzvyqtpjg41 [degF][facility] 11-993346-10283412-31-5429 11:14-0500BP Lblpakswn90 mm[Hg][facility] 27-175156-14580302-20-4614 11:14-0500BP Yyipgfcc492 mm[Hg][facility] 77-290591-23919524-60-2048 11:14-0500BSA (Body Surface Area)2.04 m2 [facility] 51-751233-03710876-84-5117 11:14-3761Hjbwbp640.94 cmAimeNorthwest Health [facility] 92-466379-52627797-66-7029 11:14-0500Pulse (Heart Rate)86 /[facility] 21-354126-32312423-29-1022 11:14-0500Pulse Wdarnatg31 %[facility] 42-979468-09751683-42-3505 11:14-4152Bukhuf89.79 kg[facility] 18-823992-22740462-36-2404 10:14-0500BMI (Body Mass Index)40.32 kg/m2 [facility]anCard[facility] 06-851564-99142982-23-6682 10:14-0500Body Cqfuofpzmlz97 [degF]Zachernestina GrimaldoCardinal [facility] Hospital 06-510065-60034482-36-4364 10:14-0500BP Pkraidndn92 mm[Hg]Zachernestina GrimaldoCardinal [facility] Hospital 78-668297-31379891-52-8039 10:14-0500BP Btugckue608 mm[Hg]Zachernestina GrimaldoCardinal [facility] Hospital 85-674560-45925645-93-1830 10:14-0500BSA (Body Surface Area)2.04 m2 [facility]doCard[facility] 93-118816-31119963-83-5073 10:140821Bbezpd190.94 cmSteven [facility] 80-500168-17782397-12-7086 10:14-0500Pulse (Heart Rate)86 /minSjeane [facility] 90-959030-41484329-88-7151 10:14-0500Pulse Zchculem26 %Zach [facility] 11-694852-19659060-24-7339 10:14-7398Dxjuxs90.79 kgStshirley Grimaldo [facility] 12-11-2015 12:30-0500BMI (Body Mass Index)40.53 kg/m2 [facility] 12-11-2015 12:30-0500Body Zipwrbnefov61.1 [degF][facility] 12-11-2015 12:30-0500BP Xamecnrjv03 mm[Hg][facility] 12-11-2015 12:30-0500BP Aohldtpz242 mm[Hg][facility] 12-11-2015 12:30-0500BSA (Body Surface Area)2.05 m2 [facility] 12-11-2015 12:30-2369Eudbvx477.94 cmAimee [facility] 12-11-2015 12:30-0500Pulse (Heart Rate)82 /[facility] 12-11-2015 12:30-0500Respiratory Rate18 /[facility] 12-11-2015 12:30-4989Acydfc40.3 kg[facility] 12-11-2015 11:30-0500BMI (Body Mass Index)40.53 kg/m2 [facility] 47-116902-24530387-63-8241 11:30-0500Body Xwzpuroeqxr90.1 [degF][facility]doCard[facility] 17-50619413-44-8320 11:30-0500BP Ntpyhcbww03 mm[Hg][facility]doCard[facility] 43-591296-52869875-71-0539 11:30-0500BP Ghthcpzt082 mm[Hg][facility] 12-11-2015 11:30-0500BSA (Body Surface Area)2.05 m2 [facility] 12-11-2015 11:30-6941Zdiebk845.94 cmSjeane [facility] 53-446141-62749444-14-4150 11:30-0500Pulse (Heart Rate)82 /[facility] 28-618051-21966186-43-9267 11:30-0500Respiratory Rate18 /[facility] 76-62135455-20-7369 11:30-8985Xlfymy10.3 kgStshirley GrimaldoCardinal [facility] Hospital 11-12-2015 11:50-0500BP Itkcfpdho64 mm[Hg]Vahid [facility] 11-12-2015 11:50-0500BP Nlcwiolh777 mm[Hg][facility] 11-12-2015 11:50-0500Pulse (Heart Rate)85 /lionelChristoki [facility] 11-12-2015 11:34-0500BMI (Body Mass Index)39.77 kg/m2 [facility] 64-25 11:34-0500Body Yfmcurbvpbh98 [degF][facility] 85-788076-42061607-18-1652 11:34-0500BP Dnwierxlq30 mm[Hg][facility] 11-12-2015 11:34-0500BP Mbxtbsih323 mm[Hg][facility] 11-12-2015 11:34-0500BSA (Body Surface Area)2.03 m2 [facility] 11-12-2015 11:34-2137Zixmrt275.94 cmAfirsthealthki [facility] 81-824830-60843340-78-0598 11:34-0500Pulse (Heart Rate)88 /[facility] 11-12-2015 11:34-0500Pulse Mnmvubme68 %[facility] 46-658945-18531699-33-8004 11:34-0500Respiratory Rate18 /[facility] 85-256008-43216493-48-1856 11:34-4688Zngpyj63.48 kg[facility] 11-12-2015 10:50-0500BP Dzrfjmurr22 mm[Hg][facility]do[facility] 80-927057-83679585-72-0318 10:50-0500BP Ibckwgrm781 mm[Hg][facility]anCard[facility] 11-12-2015 10:50-0500Pulse (Heart Rate)85 /minStenathalie DillanCardinal [facility] Hospital 11-12-2015 10:34-0500BMI (Body Mass Index)39.77 kg/m2 Zach [facility] 11-12-2015 10:34-0500Body Yfcjxdyufxt60 [degF][facility] 11-12-2015 10:34-0500BP Vpsmluobb25 mm[Hg][facility] 11-12-2015 10:34-0500BP Pbiykgyx558 mm[Hg][facility] 11-12-2015 10:34-0500BSA (Body Surface Area)2.03 m2 [facility] 11-12-2015 10:34-2804Zbvkxw193.94 cmSjeane [facility] 11-12-2015 10:34-0500Pulse (Heart Rate)88 /[facility]alie [facility] 11-12-2015 10:34-0500Pulse Nwesvgrt67 %Zach [facility] 11-12-2015 10:34-0500Respiratory Rate18 /Lise [facility] 11-12-2015 10:34-5569Hvtpbc26.48 kgStshirley Grimaldo [facility] Encounters Encounter DateEncounter TypeCare ProviderFacilityStart: 01-14-2025 End: 59-96-1743Aoawlv flowsheetSteven A Rusher DPM Work Phone: [facility]iatryStart: 01-14-2025 End: 82-77-2082Hlpgdz flowsheetSteven A Rusher DPM Work Phone: [facility]iatryStart: 01-13-2025 End: 05-31-0034qpjnfvgcmhIYVIUL [facility]: 01-05-2025 End: 23-59-6108Kufnrwioh department patient visitSTEParma Community General Hospitaltart: 01-04-2025 End: 00-03-2894euznwghyaoILQMLX [facility] HospitalStart: 01-01-2025 End: 18-41-9451gasegeotcdXQJXVOGalion Community Hospital HospitalStart: 12-30-2024 End: 75-10-0358Cibsmdknti and management of inpatientSalexandrorebel Lane Jerica DO Work Phone: [facility] Comment on above:Acute cystitis without hematuria (Primary Dx); HypoxiaStart: 12-21-2024 End: 27-81-7282Wfkufkjlu encounterVik Vargas NP Work Phone: [facility] HospitalnceStart: 12-13-2024 End: 15-63-7986Drhcgjizfg and management of inpatientSTEEast [facility] HospitalStart: 12-08-2024 End: 85-92-2376Qkcytilvvckwu procedureStenathalie Saravia DPM Work Phone: [facility] InStart: 12-05-2024 End: 29-95-6850Ivbdzuednb and management of inpatientSTEEast [facility] Center HospitalStart: 11-19-2024 End: 30-26-6300Lxadmuyrc department patient visitSMARIA ELENA [place] [facility] DepartmentComment on above:Chronic right hip pain (Primary Dx); Open wound of foot excluding toes; Chronic right hip pain; Lumbar back pain with radiculopathy affecting right lower extremity; Chronic left hip pain; Chronic pain syndrome; Sacral painStart: 10-22-2024 End: 98-15-5048Seprxqtlqp and management of inpatientMARK W Pedro [place] HospitalStart: 10-74-1478yuxkcbmhuzCZNTGUMcLeod Health Clarendon HospitalStart: 09-03-2024 End: 92-74-9844ghwmppeiwaNSCRJMMcLaren Northern [facility] HospitalStart: 09-03-2024 End: 43-37-3266Tupqtomils hospital visit by physicianSmaria elena Rodriguez MD Work Phone: [facility] LABStart: 08-12-2024 End: 37-10-3435Ycgautmwiy and management of inpatientSmaria elena Rodriguez MD Work Phone: mthz [facility] MED SURGComment on above:Open wound of foot excluding toes (Primary Dx); Open wound of toe, initial encounter; PVD (peripheral vascular disease) with claudication; Unable to care for self; Chronic right hip pain; Lumbar back pain with radiculopathy affecting right lower extremity; Chronic left hip pain; Chronic pain syndromeStart: 08-07-2024 End: 30-41-4699Nxknqhclr encounterProelmore community hospital Pharmacy Medication Management Work Phone: [facility] Medication ManagementStart: 08-06-2024 End: 38-41-6032Hrucgrarln and management of inpatientSmaria elena Rodriguez MD Work Phone: mthz [facility] MED SURGComment on above:Claudication in peripheral vascular disease (Primary Dx); PAD (peripheral artery disease); Ulcer of both feet with fat layer exposed (HCC); Oxygen dependent - 2L per baseline; Cellulitis of lower extremity, unspecified laterality; Fall, subsequent encounterStart: 07-27-2024 End: 44-65-0543hsycjjanwjCWFIGY [facility] Hospitaltart: 07-24-2024 End: 06-09-4343Xxsmhwhwm department patient visitSProMedica Memorial Hospitaltart: 07-17-2024 End: 15-12-2891Zsqyspycb encounterCatWilson Health Pharmacy Medication ManagementStart: 07-13-2024 End: 09-27-1175Rtgzhremis and management of inpatientSProMedica Memorial Hospitaltart: 05-16-2024 End: 40-39-8813Zyebudkjl department patient visitSProMedica Memorial Hospitaltart: 04-17-2024 End: 29-72-4186Gamllk OnlyRebeca Johnson MD Work Phone: ProWvumed[facility] Hospitalca Surgeons Sign InStart: 04-17-2024 End: 82-69-8136Gvjdvvtyeu and management of inpatientSWilson Healthtart: 04-16-2024 End: 24-69-0690Mqygggjke department patient visitSGUSTAVO RODRIGUEZKettering Health Main Campus HospitalStart: 03-27-2024 End: 29-21-7710Jraflhehl department patient visitSTEENCOMPASS [facility] JENNIFERKettering Health Main Campus HospitalStart: 03-18-2024 End: 98-88-4781Kpieztinl department patient visitSBLANCHARD VALLEY [facility] JENNIFERKettering Health Main Campus HospitalStart: 05-05-2536Biy-patient / Non-visitDO Carlo Grimaldo Work Phone: [facility] Work Phone: Start: 35-12-2243Kfz-patient / Non-visitDO Carlosandee Grimaldo Work Phone: [facility] Pulmonary Disease Work Phone: Start: 01-19-2024 End: 87-12-7617Odvzhamtce and management of inpatientDO Carlo Grimaldo Work Phone: [facility] Work Phone: Start: 01-14-2024 End: 07-19-9384Ajelos Aleida Vallejo [facility]PITALProMedica Physicians Digestive HealthcareComment on above:Gastrointestinal hemorrhage, unspecified gastrointestinal hemorrhage type (Primary Dx); Chronic gastrointestinal hemorrhage; Gastric ulcer without hemorrhage or perforation, unspecified chronicityStart: 01-13-2024 End: 44-04-5721Mhhhljyfo Mateo DWYERAProMedbenedicto Physicians Digestive HealthcareComment on above:Hospital Follow-upStart: 01-02-2024 End: 20-76-2348Yonmunsom department patient visitGERBER Cali[facility]o [place] HospitalStart: 11-27-2023 End: 26-00-8851iztinnucoqZDNOVS IACOBMercy [place] HospitalStart: 11-11-2023 End: 60-71-0779Qswopiikgx hospital visit by Layne Rodriguez MD Work Phone: [facility] RadiologyStart: 12-13-2022 End: 73-99-0195Vjtffvphgo and management of [facility] ClinicsINNA MARIEE [facility] Centertart: 08-13-2022 End: 48-68-6515Acoclpslhf hospital visit by Layne Rodriguez MD Work Phone: mthz LaboratoryComment on above:Chronic obstructive pulmonary disease, unspecified COPD type (HCC); Chronic right hip pain; Sacral pain; Lumbar back pain with radiculopathy affecting right lower extremity; Chronic left hip painStart: 07-29-2022 End: 69-82-8599Ymhxypurx department patient visitSmaria elena Rodriguez MD Work Phone: [facility] EDComment on above:Coccyx pain (Primary Dx)Start: 07-26-2022 End: 42-51-4362Tmnbgrwmtt hospital visit by Layne Rodriguez MD Work Phone: mthz LaboratoryComment on above:Primary hypertension; Lipid screening; Hypothyroidism, unspecified type; Hyperglycemia; Chronic obstructive pulmonary disease, unspecified COPD type (HCC); Chronic right hip pain; Sacral pain; Lumbar back pain with radiculopathy affecting right lower extremity; Chronic left hip pain; Chronic pain syndromeStart: 07-21-2022 End: 23-24-1992Vaoxincah department patient visitSmaria elena Rodriguez MD Work Phone: [facility] EDComment on above:Contusion of coccyx, initial encounter (Primary Dx); Fall, initial encounterStart: 32-61-0865yvvxhuffsdQWMDG COTTEN Facility:[facility]: 90-53-8106kvkpdibytgHOMGG COTTEN Facility:[facility]ODtart: 04-27-2022 End: 24-66-1947Epyaop consultation new/estab patient 39 Jojo Chery 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-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 Work Phone: [facility] Comment on above:Ventral hernia without obstruction or gangrene (Primary Dx); Tobacco useStart: 01-04-2022 End: 69-22-2167Cwypclafhd hospital visit by [facility] Mri ScannerMTHZ LaboratoryComment on above:Chronic right hip painRecurrent abdominal hernia without obstruction or gangrene, unspecified hernia type; Right lower quadrant abdominal massStart: 31-93-6387jofhfepeqgICSVK COTTEN Facility:[facility]tart: 48-54-9064bohhepfoouXXZQV COTTEN Facility:[facility]tart: 08-25-2021 End: 36-05-3329twyesntddrAT DOCTOR MISCFacility:C3Qqmxo: 07-19-2021 End: 65-74-2509zvgugwaqsqDXVUBY Y HANFacility:[facility]tart: 07-19-2021 End: 55-65-8632Jndqxraoub hospital visit by Sylvie Pickett MD Work Phone: [facility] EndoscopyComment on above:Pancreatic mass Start: 06-20-2021 End: 09-67-0016Qoxugbkuqg hospital visit by [facility] Cat Scan RoomCARTHAGE [facility] LaboratoryComment on above:Urinary incontinence, unspecified typeRight sided abdominal painStart: 04-10-2021 End: 82-02-7039Cipbvizeku hospital visit by [facility] Xr [address] Room [address] [place] [address] RadiologyComment on above:Chronic right hip pain; Fall, initial encounter; Right hip painStart: 03-17-2021 End: 44-75-5277Kqzssafbb department patient visitSmaria elena Rodriguez MD Work Phone: [facility] EDComment on above:Pneumonia due to infectious organism, unspecified laterality, unspecified part of lung (Primary Dx); Cellulitis of left lower extremity; Acute on chronic respiratory failure with hypoxia (HCC); Pleural effusion, bilateralStart: 02-09-2021 End: 40-76-5282Kjerlksti department patient visitBellevue Hospital EDComment on above:Closed head injury, initial encounter (Primary Dx); Fall, initial encounter; Contusion of right knee, initial encounterStart: 01-17-2021 End: 16-12-7523Qqnbpdsma department patient visitMarita Munoz DO Work Phone: [facility] EDComment on above:Intractable vomiting with nausea, unspecified vomiting type (Primary Dx)Start: 01-12-2021 End: 98-63-1063Obosqkbxb department patient visitAlbert Ibrahim DO Work Phone: [facility] EDComment on above:Near syncope (Primary Dx); Multiple contusions; Abrasion of right knee, initial encounterStart: 12-04-2020 End: 50-48-8581Adfbtwglw department patient visitMukesh Marley MD Work Phone: [facility] EDComment on above:Pelvic pain (Primary Dx)Start: 04-12-2020 End: 36-14-0658Pscravglqbn [facility] Work Phone: [facility] Work Phone: Start: 04-05-2020 End: 51-11-4681Drmgonswu department patient visitChfantatrell Saeed Alexander Work Phone: [facility] EDComment on above:Acute right- sided low back pain without sciatica (Primary Dx)Start: 03-21-2020 End: 19-54-7227Gggkcqpfa department patient visitAimeki [facility] EDComment on above:Sacroiliac joint pain (Primary Dx)Start: 03-18-2020 End: 66-82-0267Iyskbuehlb and management of inpatientHeminderet Martinez Work Phone: stvz CAR 1Comment on above:S/P cardiac cath; S/P angioplasty with stentStart: 03-17-2020 End: 35-50-7890Sognnppwhn hospital [facility] by [facility]St[facility] 1MTHZ CATH LABStart: 03-17-2020 End: 11-64-3974Zekxdmpfpf and management of inpatientAli F O Ahmad Work Phone: mthz [facility] MED SURGComment on above:Chest pain, unspecified type (Primary Dx)Start: 03-13-2020 End: 80-79-2740Qnmkbarxw department patient visitMukesh Marley Work Phone: [facility] EDComment on above:Congestive heart failure, unspecified HF chronicity, unspecified heart failure type (HCC) (Primary Dx); Bronchitis; COPD exacerbation (HCC)Start: 02-12-2020 End: 93-16-9584Kqhhwetkg department patient visitDeion Loaiza Work Phone: [facility] EDComment on above: Osteoarthritis, unspecified osteoarthritis type, unspecified site (Primary Dx); Avascular necrosis (HCC); Urinary tract infection without hematuria, site unspecifiedStart: 02-04-2020 End: 07-72-8090Mkutyvqhzh hospital visit by [facility] 1MTHZ CATH LABStart: 01-28-2020 End: 39-07-6290Fledcbpbqx hospital visit by Aaliyah Hernandez [facility] CTRStart: 01-28-2020 End: 26-71-1923Vzucikmwvcx patientKaitlupis Dina Work Phone: [facility] Work Phone: Start: 11-16-2019 End: 39-39-9118Nsfznijfhq hospital visit by Aaliyah Hernandez [facility] CTRStart: 11-16-2019 End: 37-50-2360Qqjdmwn encounter procedureAlpakleber Capps Work Phone: [facility] Work Phone: Start: 11-16-2019 End: 05-65-8881Juxkkxirygt lucilaki Nagy Work Phone: [facility] Work Phone: Start: 10-21-2019 End: 14-12-9320Ovzlrlpbr department patient visitMukesh Marley Work Phone: [facility] EDComment on above:[place] choudhury, right, initial encounter (Primary Dx)Start: 10-21-2019 End: 81-37-1510Evaedjyhtsm patientNitza Mark Work Phone: [facility] Work Phone: Start: 10-21-2019 End: 65-85-5402Ydljfbemdch patientKatherine Mark Work Phone: [facility] Work Phone: Start: 10-07-2019 End: 48-94-1608Ufaltdfql department patient visitSyed Ariana Whitten Work Phone: [facility] EDComment on above:Opioid overdose, accidental or unintentional, initial encounter (HCC) (Primary Dx); Pneumonia due to organismStart: 10-06-2019 End: 94-93-8092Dmlbkmaem department patient visitMicWVUMedicine [facility] EDComment on above:Chronic obstructive pulmonary disease with acute exacerbation (HCC) (Primary Dx); Pneumonia due to organism; Cough; Chronic bilateral low back pain with bilateral sciaticaStart: 10-01-2019 End: 19-81-0865Pkybhcnioj hospital visit by [facility] Brick Molder Hand Rm 1MTHZ CATH LABComment on above:Canceled (Patient preference)Start: 09-28-2019 End: 63-34-5556Hdwxbjhuqp hospital visit by [facility]Health [facility] Schedule[facility] Covid ScreeningComment on above:ArrivedStart: 09-24-2019 End: 64-75-4726Cfabncygclr Pascual Holliday Work Phone: [facility] Work Phone: Start: 09-23-2019 End: 14-00-4181Qnpvetdulrel consultation with Tre Nagy Work Phone: [facility] Work Phone: Start: 09-21-2019 End: 63-59-5689Cadgvspahv hospital visit by [facility] Laboratory Comment on above:ASHD (arteriosclerotic heart disease); S/P angioplasty with stent; Mixed hyperlipidemia; Essential hypertension; Tobacco abuse counseling; Bilateral carotid artery disease, unspecified type (HCC); PVD (peripheral vascular disease) ([facility]); Abdominal aortic aneurysm (AAA) without rupture ([facility]); SOB (shortness of breath)Start: 09-21-2019 End: 52-74-5466Ckhcwlwwyc hospital [facility] by [facility] P[facility] Pat Screening ScheduleCAR[facility] PRE ADMITStart: 09-17-2019 End: 90-90-3052Gylvqzcemg hospital visit by [facility] Cardiology Stress Room [facility] Stress LabComment on above:ArrivedStart: 09-16-2019 End: 46-01-2568Lxwbdpujeg hospital visit by [facility] Cardiology Stress Room [facility] Stress LabComment on above:ASHD (arteriosclerotic heart disease); S/P angioplasty with stent; Mixed hyperlipidemia; Essential hypertension; Tobacco abuse counseling; Abdominal aortic aneurysm (AAA) without rupture (HCC); PVD (peripheral vascular disease) (HCC); Bilateral carotid artery disease, unspecified type (HCC); Lightheadedness; DizzinessStart: 09-15-2019 End: 07-73-2807NekctymAoegaae Short Work Phone: [facility] Work Phone: Start: 09-15-2019 End: 08-46-1228Fbsasokppvij consultation with [employer] Work Phone: [facility] Work Phone: Start: 09-09-2019 End: 93-33-3289Soloyopiirqp consultation with [employer] Work Phone: [facility] Work Phone: Start: 09-03-2019 End: 20-20-2685Vxvuzenomt hospital visit by [facility] Echo RoomCARTHAGE [facility] EchocardiographyComment on above:ASHD (arteriosclerotic heart disease); S/P angioplasty with stent; Mixed hyperlipidemia; Essential hypertension; Tobacco abuse counseling; Abdominal aortic aneurysm (AAA) without rupture (HCC); PVD (peripheral vascular disease) (HCC); Bilateral carotid artery disease, unspecified type (HCC); Lightheadedness; DizzinessStart: 08-26-2019 End: 47-78-6072Mcuqdbcsznye consultation with [employer] Work Phone: [facility] Work Phone: Start: 07-30-2019 End: 80-00-4617Qpxyjobdgpgh consultation with [employer] Work Phone: [facility] Work Phone: Start: 07-18-2019 End: 53-54-4096Ekmbarzkts and management of inpatientJames A Deb Work Phone: [facility] Ortho/Med SurgComment on above:Atherosclerosis of artery of extremity with intermittent claudication (HCC); Incontinence; Chronic obstructive pulmonary disease, unspecified COPD type (HCC)Start: 07-17-2019 End: 90-67-7782Vejztnbpy department patient visitTyza Diaz Work Phone: [facility] EDComment on above:Acute respiratory failure with hypoxia and hypercapnia (HCC) (Primary Dx); Viral pneumonia; Acute pulmonary edema (HCC)Start: 07-09-2019 End: 12-38-6620Xccuphuqbqsk consultation with Tre Nagy Work Phone: [facility] Work Phone: Start: 06-17-2019 End: 56-61-5594Hiowinwnrvg Tre Nagy Work Phone: [facility] Work Phone: Start: 06-15-2019 End: 55-10-4022Gsphnhiko department patient visitMukesh Ki Martinezzara Work Phone: [phone] [place] [address] EDComment on above:Benign paroxysmal positional vertigo, unspecified laterality (Primary Dx)Start: 05-27-2019 End: 45-14-3425Rjjbjllyn department patient visitTyza Diaz Work Phone: [phone] [place] [address] EDComment on above:Contusion of left hand, initial encounter (Primary Dx)Start: 05-01-2019 End: 83-83-0003Qtvtmbrmdxf Tre Nagy Work Phone: [facility] Work Phone: Start: 04-21-2019 End: 91-16-1649Pgfttrfalg and management of inpatientJustin Andes DO Work Phone: mthz [facility] MED SURGComment on above:Pneumonia due to organism (Primary Dx); COPD, severity to be determined (HCC); COPD with exacerbation (HCC)Start: 04-14-2019 End: 72-47-2435Xvuyaaraibg patientStenathalie Grimaldo Work Phone: [facility] Work Phone: Start: 04-14-2019 End: 76-06-0308Wjtakbxcvps Tre Nagy Work Phone: [facility] Work Phone: Start: 04-12-2019 End: 67-88-8938Ioyucikqc department patient visitAlefortunato Sebastian DO Work Phone: [facility] EDComment on above:Acute pain of left shoulder (Primary Dx); DizzinessStart: 03-20-2019 End: 35-83-5658Oqepvxhgyvl Tre Nagy Work Phone: [facility] Work Phone: Start: 03-12-2019 End: 22-99-8701Ahyhxyq encounter procedureVahid Nagy Work Phone: [facility] Work Phone: start: 03-03-2019 End: 91-10-2538Qbxktal encounter procedureVahid Nagy Work Phone: [facility] Work Phone: Start: 03-03-2019 End: 89-09-8590Crzyynhltje patientCabriana Malik Work Phone: [facility] Work Phone: Start: 02-23-2019 End: 49-95-7036Blvncesgm department patient visitMiccolten Sanjaybalaji Work Phone: [facility] EDComment on above:Abdominal pain, unspecified abdominal location (Primary Dx); Anxiety stateStart: 02-23-2019 End: 28-66-1163Vqllnlzjtr hospital visit by [facility] Mri ScannerCos[facility] MRIComment on above:Spinal stenosis of lumbar region, unspecified whether neurogenic claudication present; DDD (degenerative disc disease), lumbarStart: 02-19-2019 End: 34-07-6892Qpfzkppzqzn patientSteven Grimaldo Work Phone: [facility] Work Phone: Start: 02-19-2019 End: 93-09-0691Kawhcjbzgwa patientVahid Nagy Work Phone: [facility] Work Phone: Start: 01-29-2019 End: 05-92-5646Ykmbzwy evaluation of patient and reportLee Karla Adams Work Phone: [facility] Work Phone: Start: 01-22-2019 End: 88-63-1487Uwvsulccoam Tre Nagy Work Phone: [facility] Work Phone: Start: 01-14-2019 End: 53-05-1083Rhzzbow encounter procedureCashashankradha King Work Phone: [facility] Work Phone: start: 01-13-2019 End: 90-71-5061Vkevimrok department patient visitAiPremier Health [facility] EDComment on above:Near syncope (Primary Dx); Fall from standing, initial encounter; HyponatremiaStart: 01-12-2019 End: 13-35-4319Bwjznfwevq hospital visit by physicianSt[facility] Karen Carroll [address] [place] [address] RadiologyComment on above:Pain of left upper extremityStart: 01-12-2019 End: 33-04-6366Zvghjppyzhz patientCabriana Malik Work Phone: [facility] Work Phone: Start: 12-11-2018 End: 78-27-9423Ebhqfaquzie Tre Nagy Work Phone: [facility] Work Phone: Start: 10-30-2018 End: 75-96-4741Ptwhzuggiyz [facility] Angelita Work Phone: [facility] Work Phone: Start: 09-30-2018 End: 66-17-4375Verkttjzrdw patientStenathalie Grimaldo Work Phone: [facility] Work Phone: Start: 08-27-2018 End: 89-75-5807Anhigdynfct patientVahid Nagy Work Phone: [facility] Work Phone: Start: 07-28-2018 End: 02-36-7316Nuedajcvpjg patientVahid Nagy Work Phone: [facility] Work Phone: Start: 06-27-2018 End: 68-36-0718Obszpnaidez patientVahid Nagy Work Phone: [facility] Work Phone: Start: 06-10-2018 End: 03-81-5000Xwbxtzx encounter procedureAijuanito Nagy Work Phone: [facility] Work Phone: start: 05-30-2018 End: 81-32-0951Ureduiypufi patientVahid Nagy Work Phone: [facility] Work Phone: Start: 05-07-2018 End: 19-99-7093Avcofbx encounter procedureVahid Nagy Work Phone: [facility] Work Phone: start: 04-29-2018 End: 82-17-9130Bsudtbxzfov patientVahid Nagy Work Phone: [facility] Work Phone: Start: 87-39-6734Atyxjd outpatient visit [address] [facility]-26[facility]2018 End: 69-94-9523Eimhwnu encounter procedureAijuanito Nagy [facility] Work Phone: [facility] Work Phone: start: 71-80-3665Qhjorrg encounter procedureMELISSA MADDISON FOXFacility:[facility]: 02-24-2018 End: 17-25-5073Gitpksq encounter procedureVahid Nagy CNP Work Phone: [facility] Work Phone: start: 01-59-1566Biapcr outpatient visit [address] [facility]: 58-98-4812Lrihlg outpatient visit [address] [facility] 02-10-2018 End: 67-07-4786Ddzarsm encounter procedureVahid Nagy CNP Work Phone: [facility] Work Phone: start: 01-20-2018 End: 78-08-6571Isdoqsf encounter procedureVahid Nagy CNP Work Phone: [facility] Work Phone: Start: 01-20-2018 End: 13-46-6232Zyfxyb outpatient visit [address] [facility] 12-27-2017 End: 85-95-4162Urqktle encounter procedureVahid Nagy CNP Work Phone: [facility] Work Phone: start: 12-27-2017 End: 64-62-7421Wbqaei outpatient visit [address] [facility] 11-26-2017 End: 77-94-0430Qumjcrh encounter procedureVahid Nagy CNP Work Phone: [facility] Work Phone: Start: 87-85-4667Ytyo bld gluc mntr dev cleared fda spec home useAimee DaniellaenHealth [facility] start: 11-26-2017 End: 24-73-0605Wecefw outpatient visit 25 minutesVahid Nagy Other [facility]: 10-22-2017 End: 87-86-8896Ozjstxa encounter procedureVahid Nagy CNP Work Phone: [facility] Work Phone: start: 10-22-2017 End: 99-20-9498Wrxajj outpatient visit 15 minutesVahid Nagy Other [facility]: 10-10-2017 End: 70-32-9247Hpkjcq outpatient visit [address] [facility] 10-10-2017 End: 79-59-8894Togzegk encounter procedureVahid Nagy CNP Work Phone: [facility] Work Phone: start: 09-11-2017 End: 54-53-4218Bqaoqsr encounter procedureAijuanito Nagy CNP Work Phone: [facility] Work Phone: start: 09-11-2017 End: 49-31-4103Pqfudecuhz HealthStevernestina Grimaldo [facility]: 81-11-3083Xxfk bld gluc mntr dev cleared fda spec home useSteven RobinsonCardinal Cushing Hospital start: 09-11-2017 End: 35-89-7825Tfitxp outpatient visit [address] [facility]: 08-16-2017 End: 62-14-8755Swstilp encounter procedureAijuanito Nagy CNP Work Phone: [facility] Work Phone: start: 90-72-1143Fxdq bld gluc mntr dev cleared fda spec home useSteven RobinsonCardinal Cushing Hospital start: 08-16-2017 End: 88-82-3271Dzxyek outpatient visit [address] [facility]: 08-06-2017 End: 00-52-2046Gwkytlk encounter procedureAijuanito Nagy CNP Work Phone: [facility] Work Phone: Start: 81-82-2510Javlqlhvmd examination, unspecified Vahid [facility] Start: 93-57-5982K-reactive proteinStevidant pungo hospital Grimaldo [facility] Start: 31-10-8494Heiccubmyfjpk metabolic panelSteArkansas Children's [facility] Start: 06-31-1443Rpo bone density study 1/> sites axial [facility]SCarroll [facility] Start: 74-30-2019Eejd bld gluc mntr dev cleared fda spec home useStevidant pungo hospital [facility]Card[facility] Start: 21-90-3061Azulxlfvghm analyte qual/semiqual multiple stepStevidant pungo hospital [facility]Card[facility] Start: 08-06-2017 End: 41-82-3309Sbhfxw outpatient visit 15 minutesAijuanito Nagy Other [facility]: 91-48-1614Ytvxs spine cervical 2 or 3 viewsZach [facility] ScienceCard[facility] Start: 37-16-8917Gjmql spine lumbosacral 2/3 views Zach GrimaldoCardinal Cushing Hospital Start: 69-87-8544Emqju spine thoracic 2 viewsZach GrimaldoCardinal Cushing Hospital Start: 74-64-7559Rcvpgirvtffhu rate rbc automatedSternestina [facility] Start: 22-33-0017Bjevzvcbsb examination, unspecified Vahid [facility] start: 07-29-2017 End: 59-12-9787Dmxobct encounter procedure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 Work Phone: [facility] Work Phone: Start: 70-48-4593Uist bld gluc mntr dev cleared fda spec home useSteven DillanCardinal Cushing Hospital start: 07-29-2017 End: 89-91-6162Jojkzc outpatient visit [address] [facility]: 02-15-2017 End: 43-54-1638Qmcfgc outpatient visit [address] [facility]: 74-50-8403Sdgqp spine lumbosacral 2/3 viewsStshirley GrimaldoCardinal Cushing Hospital Start: 02-15-2017 End: 91-10-1239Sqdxgoh encounter procedureChristoki 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 Work Phone: [facility] Work Phone: start: 01-15-2017 End: 16-05-8461Nqahims encounter procedureConversion Provider Work Phone: [facility] Work Phone: start: 64-19-7188Mlsptwg use cessation intermediate 3- 10 minutesZach GrimaldoCardinal Cushing Hospital Start: 01-15-2017 End: 08-87-4541Ukvmlt outpatient visit [address] [facility]: 12-14-2016 End: 45-08-1988Uqfnyvk encounter procedureChristoki 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 Work Phone: [facility] Work Phone: start: 98-13-2264Tdtdnox use cessation intermediate 3- 10 minutesStshirley GrimaldoCardinal Cushing Hospital start: 12-14-2016 End: 90-47-2916Ookefuzmpg HealthStshirley Grimaldo [facility]: 12-14-2016 Comprehensive metabolic panelSteven DillanCardinal Cushing Hospital start: 23-91-6081Cmci bld gluc mntr dev cleared fda spec home useSjeane GrimaldoCardinal Cushing Hospital start: 66-70-9595Psnwsxkiu c antibodyZach Grimaldo [facility] start: 12-14-2016 End: 18-32-9627Hsjuzw outpatient visit [address] [facility]: 04-14-2015 End: 36-26-5591Clnntem encounter procedureAijuanito Nagy CNP Work Phone: [facility] Work Phone: start: 04-14-2015 End: 61-97-3042Hhsrrdoepv Hermelinda Grimaldo [facility]: 04-14-2015 End: 50-72-8912Ymwlxk outpatient visit [address] [facility]: 03-11-2015 End: 26-03-9899Yyzsqvm encounter procedureAijuanito Nagy CNP Work Phone: [facility] Work Phone: start: 66-24-0464Rqwxbicbefchb metabolic panelSjeane [facility] start: 62-16-4666Ddhg bld gluc mntr dev cleared fda spec home useSjeane GrimaldoCardinal Cushing Hospital start: 64-07-7084Mfcqtkbej, screeningZach Grimaldo [facility] start: 03-11-2015 End: 67-77-2604Edhffu outpatient visit [address] [facility]: 02-10-2015 End: 43-88-3581Bmowpsu encounter procedureConversion Provider Work Phone: [facility] Work Phone: start: 02-10-2015 End: 46-96-0958Gwhlkepcsj Hermelinda Grimaldo [facility]: 02-10-2015 Colonoscopy w/biopsy single/multipleSteven [facility] start: 33-90-4725Epnd bld gluc mntr dev cleared fda spec home useSteven [facility] start: 80-85-9068Urgefbmgw, screeningSteven [facility] start: 02-10-2015 End: 10-08-3787Ozmwny outpatient visit 15 minutesLuke Roberto Carlos Other [facility] Procedures DateProcedureProcedure DetailPerforming ClinicianStart: 53-97-4393Pjbepyxfm serum plasma/whole bloodTaaggie Amado ELECTRIC BLANKET WIRER-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 Work Phone: Start: 84-82-2950ARKYXLO GLUCOSENat Reynolds MD Work Phone: Start: 18-53-1963PVXIPFP GLUCOSENat Reynolds MD Work Phone: Start: 57-48-7187Bddedbepocfim metabolic panelTaeler Aneudy ELECTRIC BLANKET WIRER-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 Work Phone: Start: 76-02-4937GYCQX TUBESNat Reynolds MD Work Phone: Start: 13-77-2589EZHBY TUBES BLUE TOPNat Reynolds MD Work Phone: Start: 76-86-9560LHZMMZA GLUCOSENat Reynolds MD Work Phone: Start: 30-86-7109Nbaolbyai serum plasma/whole blood Nat Reynolds MD Work Phone: Start: 03-40-5866FJBXORD Orion Reynolds MD Work Phone: Start: 92-67-0802Jwwdfpnhc serum plasma/whole blood Taaggie Amado ELECTRIC BLANKET WIRER-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 Work Phone: Start: 02-18-7750IEUSSXL Orion Reynolds MD Work Phone: Start: 38-92-4697Cgqsqaayyryyi metabolic panelTaeler Aneudy ELECTRIC BLANKET WIRER-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 Work Phone: Start: 61-56-4027OKIQL OXIMETRY, SPOTTaeler Amado ELECTRIC BLANKET WIRER-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 Work Phone: Start: 24-02-9961AYLPPKR GLUCOSENat Reynolds MD Work Phone: Start: 93-99-1268GJ EXTRA URINEAmber Pablo ELECTRIC BLANKET WIRER-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 Work Phone: Start: 31-44-3756NK EXTRA URINE CULTUREAmber Pablo ELECTRIC BLANKET WIRER-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 Work Phone: Start: 99-24-1394NH EXTRA URINE MARBLEAmber Shah ELECTRIC BLANKET WIRER-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 Work Phone: Start: 61-45-7953Ylwsw dip stick/tablet rgnt auto w/o microscopyShayne A Pizano DO Work Phone: Start: 60-94-1704Yk angiography chest w/contrast/noncontrastAmber Pablo ELECTRIC BLANKET WIRER-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 Work Phone: Start: 83-85-0433Dqkja of troponin quantitativeAmber Pablo ELECTRIC BLANKET WIRER-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 Work Phone: Start: 75-05-2930Ousnstbbeb exam chest single view Kellen Pablo ELECTRIC BLANKET WIRER-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 Work Phone: Start: 90-21-1537Egxtyokuynfts metabolic panelAmber Pablo ELECTRIC BLANKET WIRER-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 Work Phone: Start: 04-60-7950Bwwflxcy screenSTEFAN IACOBComment on above:Performed By: #### TSC ####[facility] ([address] [address] VIRStart: 80-05-0814Uuylgiuxvz microscopic only Filomena Holli ELECTRIC BLANKET 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 Work Phone: Start: 41-13-2009Osnud dip stick/tablet rgnt auto w/o microscopyKrSalem Hospital Work Phone: Start: 58-25-7097Ov pelvis w/o contrast materialChrist [facility] Work Phone: Start: 40-41-6849Vcosmpoxcocwr metabolic panelChrist Hospital Work Phone: Start: 11-19-2024 End: 23-52-9567Qmube foot complete minimum 3 viewsKrSalem Hospital Work Phone: Start: 99-99-2178Jtd bact xcpt urine blood/stool aerobic isolMegall Jose A Vishal [facility] Work Phone: Start: 49-22-9407HCPON METABOLIC PANEL W/ REFLEX TO MG FOR LOW KShirley A [facility] Work Phone: Start: 02-35-8843Optsu count complete auto&auto difrntl wbcShirley A [facility] Work Phone: Start: 58-97-4090IKLDV METABOLIC PANEL W/ REFLEX TO MG FOR LOW KShirley A [facility] [place] - [facility] Work Phone: Start: 76-64-2393Bbyzj count complete auto&auto difrntl wbcShirley A [facility] Work Phone: Start: 02-22-5949XFIFR METABOLIC PANEL W/ REFLEX TO MG FOR LOW KShirley A [facility] [place] - [facility] Work Phone: Start: 62-46-9223Puony count reticulocyte automated Osmar Rodriguez MD Work Phone: Start: 64-46-3858JDQMMWC B12 & FOLATEStdiego Rodriguez MD Work Phone: Start: 12-93-8877JQHJG METABOLIC PANEL W/ REFLEX TO MG FOR LOW KShirley A [facility] ELECTRIC BLANKET 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 Work Phone: Start: 16-86-4285Goywi count complete auto&auto difrntl wbcShirley A Fabi ELECTRIC BLANKET 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 Work Phone: Start: 96-92-3085ZCKRT METABOLIC PANEL W/ REFLEX TO MG FOR LOW KShirley A Fabi ELECTRIC BLANKET 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 Work Phone: Start: 70-41-4644Tvhzv count complete auto&auto difrntl wbcShircristian Dunlap ELECTRIC BLANKET 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 Work Phone: Start: 76-54-9541Ngcoeii bacterial blood aerobic w/id isolatesKelly Y Ariza PA-C Work Phone: Start: 08-12-2024 End: 10-30-0062Zvwijxxssf examination foot 2 viewsKelly Y Ariza PA-C Work Phone: Start: 41-06-5811Vwamz metabolic panel calcium total Ashley Y Ariza PA-C Work Phone: Start: 18-88-5888B-reactive proteinKelly Y Ariza PA-C Work Phone: Start: 42-14-8856PCOJDYN, BLOOD 1Kelly Y Ariza PA-C Work Phone: Start: 39-08-1652GOSGU METABOLIC PANEL W/ REFLEX TO MG FOR LOW KShirley Ariana Dunlap ELECTRIC BLANKET 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 Work Phone: Start: 05-28-4500Fksst count complete auto&auto difrntl wbcShircristian Dunlap ELECTRIC BLANKET 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 Work Phone: Start: 49-38-6878CDGCD METABOLIC PANEL W/ REFLEX TO MG FOR LOW KShirley Ariana Dunlap ELECTRIC BLANKET 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 Work Phone: Start: 76-78-2806Qufsf count complete auto&auto difrntl wbcShircristian Dunlap ELECTRIC BLANKET 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 Work Phone: Start: 34-62-4374Ikxqrnc function panelShircristian ConnerNational Jewish Health - [facility] Work Phone: Start: 29-52-8387YWVQA METABOLIC PANEL W/ REFLEX TO MG FOR LOW KShircristian PeterBrandenburg Center - [facility] Work Phone: Start: 16-16-1009Ootos count complete auto&auto difrntl wbcOliva Lane [facility] Work Phone: Start: 23-26-1450Mog-scan lxtr art/artl bpgs compl bi studyBhumimorteza Adorno Rodrigo DPM Work Phone: Start: 98-86-0612MCOFC METABOLIC PANEL W/ REFLEX TO MG FOR LOW Ethan [facility]istanBro[facility] Work Phone: Start: 58-06-2709Weqhw count complete auto&auto difrntl wbcOliva Lane [facility] Work Phone: Start: 88-52-5675Gnrmwch bacterial blood aerobic w/id isolatesShaida Lane [facility] Work Phone: Start: 18-17-9484Wvktlielxz glycosylated l6qNniisjeOliva PeterFort Memorial Hospital Work Phone: Start: 72-56-3628AWAFQMK, SEPSISShircristian Lane [facility] Work Phone: Start: 08-06-2024 End: 79-84-5173Kd lower extremity w/contrast materialSalisha Lane [facility] Work Phone: Start: 73-48-9821Ff thorax w/contrast materialSabiliorcristian Lane [facility] Work Phone: Start: 34-35-1117Lb head/brain w/o contrast material Oliva Ariana [facility] Work Phone: Start: 39-82-2315Hez routine ecg w/least 12 lds i&r onlyOliva Dunlap ELECTRIC BLANKET 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 Work Phone: Start: 63-71-1477Bby prim src gram/giemsa stain bct fungi/cellSalisha Dunlap ELECTRIC BLANKET 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 Work Phone: Start: 90-82-3532Vbrjr count complete auto&auto difrntl wbcOliva Dunlap ELECTRIC BLANKET WIRER - [facility] Work Phone: Start: 91-31-4954CQPFRWT, BLOOD 1[facility] [employer] [facility] Work Phone: Start: 23-07-0358Khuzk depression screening assessment Rebeca Johnson MD Work Phone: Start: 72-84-3762Lopxaf scan of lower limb veinsDO Carlo Grimaldo Work Phone: Start: 10-50-0818Kckojnhj tomography of abdomen and pelvis with contrastDO Carlo Grimaldo Work Phone: Start: 16-97-5038PT angiography of thoraxDO Carlo Grimaldo Work Phone: Start: 61-99-9292Qjqwb chest X-rayDO Carlo Grimaldo Work Phone: Start: 96-30-3558Zrdyhzddwdm Panel (PCR)DO Carlo Grimaldo Work Phone: Start: 98-13-8529Nqvny Occult Blood (JESS)DO Carlo Grimaldo Work Phone: Start: 02-11-2966FvjbfbhdtdiRcprpo Iacob MD Work Phone: Start: 93-63-5539Doefc depression screening assessment Irena Vallejo CMAStart: 55-64-2193Jngkiakbogwel metabolic panelSmaria elena Rodriguez MD Work Phone: Start: 41-21-8222Ppjvr albumin quantitativeStdiego Rodriguez MD Work Phone: Start: 07-26-2022 End: 60-66-6588Egbhc panelSmaria elena Rodriguez MD Work Phone: Start: 07-26-2022 End: 93-81-6837Rgwehsirvakvk metabolic panelSmaria elena Rodriguez MD Work Phone: Start: 99-96-9983Ybwtwmpuymsr [Mass/volume] in Urine by Test stripCatterry Vargas MAStart: 07-21-2022 End: 24-85-6052Muucw spine lumbosacral 2/3 viewsOlgaian Diego THORNE Work Phone: Start: 00-89-7094Znh any jt lower extrem w/o contrast matrlSmaria elena Rodriguez MD Work Phone: Start: 79-66-9055Iy abdomen & pelvis w/contrast Naren Rodriguez MD Work Phone: Start: 45-82-7227Abokaizeqm bloodStdiego Rodriguez MD Work Phone: Start: 07-19-2021 End: 77-37-0804TXW W/ ULTRASOUNDSadenise Pickett MD Work Phone: Start: 07-15-5104Gomzhdd measurement, bloodPedrito Pickett MD Work Phone: Start: 66-93-2068NXQAIKZJWB ENDOSCOPICStephanie A Adelina ELECTRIC BLANKET WIRER-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 Work Phone: Start: 19-05-8187Ltfywbi measurement, bloodPedrito Pickett MD Work Phone: Start: 58-86-4587Fl abdomen & pelvis w/contrast Naren Rodriguez MD Work Phone: Start: 24-74-6793Numwj count complete auto&auto difrntl wbcStdiego Rodriguez MD Work Phone: Start: 82-54-9694Zafph hip unilateral with pelvis 2-3 viewsStdiego Rodriguez MD Work Phone: Start: 90-49-1975AHACX METABOLIC PANEL W/ REFLEX TO MG FOR LOW KShirley A [facility] ELECT[employer]IC BLANKET 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 Work Phone: Start: 79-40-8108Cjdvh count complete auto&auto difrntl wbcOliva Tristan ELECTRIC BLANKET 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 Work Phone: Start: 18-39-6113FYEFO METABOLIC PANEL W/ REFLEX TO MG FOR LOW Ethan Tristan ELECTRIC BLANKET 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 Work Phone: Start: 03-54-3626Kexdf count complete auto&auto difrntl wbcOliva Tristan ELECTRIC BLANKET 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 Work Phone: Start: 01-04-4417Fsmorfcqbk exam chest 2 viewsOliva Tristan ELECTRIC BLANKET 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 Work Phone: Start: 38-66-9907PRUWQFK, BLOOD 1Shircristian Tristan ELECTRIC BLANKET 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 Work Phone: Start: 31-21-7136RVOQC-19, RAPIDShircristian Tristan ELECTRIC BLANKET 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 Work Phone: Start: 54-79-6878Fm thorax w/contrast materialJoshua Grund ELECTRIC BLANKET 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 Work Phone: Start: 53-89-7203Xlxmjqdbyp microscopic onlyOliva Tristan ELECTRIC BLANKET 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 Work Phone: Start: 64-97-2276Tpjdf dip stick/tablet rgnt auto w/o microscopyOliva Tristan ELECTRIC BLANKET 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 Work Phone: Start: 67-30-6254DJAZWKC, SEPSISJoshua Baciliound ELECTRIC BLANKET 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 Work Phone: Start: 51-94-3421Ewd-scan xtr veins complete bilateral studyJoshua Grund ELECTRIC BLANKET 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 Work Phone: Start: 58-57-7566Uqrte metabolic panel calcium total Harish Sebastian DO Work Phone: Start: 84-00-1557GOYNP TO COMPREHENSIVE UPGRADE Harish Sebastian DO Work Phone: Start: 38-25-7967B-reactive proteinJoshua Analilia ELECTRIC BLANKET 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 Work Phone: Start: 56-86-1269Gfbobhosvx exam chest single view Harish Sebastian DO Work Phone: Start: 47-26-2629Fbw routine ecg w/least 12 lds i&r onlyAlexaconsuelo Sebastian DO Work Phone: Start: 02-09-2021 End: 98-40-3739Ahqhp sacrum & coccyx minimum 2 viewsStevernestina Marie Sahra PA-C Work Phone: Start: 74-95-4011Ykqtgvnwzb exam chest single view Zach Marie Sahra PA-C Work Phone: Start: 95-01-8201Jv cervical spine w/o contrast materialSteven D Sahra PA-C Work Phone: Start: 96-58-9969Nt head/brain w/o contrast material Zach Marie Sahra PA-C Work Phone: Start: 55-76-6413Nieqyglecmj timeSteven D Sahra PA-C Work Phone: Start: 19-02-6027Hvu routine ecg w/least 12 lds w/i&r Zach Marie Sahra PA-C Work Phone: Start: 62-53-9243Uf abdomen & pelvis w/o contrast materialChristina R Munoz DO Work Phone: Start: 52-55-5509Zxnxj of lactateChristina R Munoz DO Work Phone: Start: 62-10-1591EPKXC-19, RAPIDChristina R Munoz DO Work Phone: Start: 12-47-7785Qdn routine ecg w/least 12 lds w/i&r Albert Andes DO Work Phone: Start: 81-03-9305Upaxx of magnesiumJustin Andes DO Work Phone: Start: 38-63-4683RSHUX METABOLIC PANEL W/ REFLEX TO MG FOR LOW KJustin Andes DO Work Phone: Start: 01-12-2021 End: 93-65-2043Tsghp spine thoracic 2 viewsJustin Andes DO Work Phone: Start: 19-13-5623Xpljcusrsc exam chest single view Albert Andes DO Work Phone: Start: 06-86-9799Ro head/brain w/o contrast material Albert Andes DO Work Phone: Start: 50-88-4655Vvflofroqc microscopic onlyMukesh Marley MD Work Phone: Start: 05-65-5961Hghrz dip stick/tablet rgnt auto w/o microscopyMukesh Marley MD Work Phone: Start: 33-58-3969Lh abdomen & pelvis w/contrast materialMukesh Marley MD Work Phone: Start: 96-08-3594Xwnvmpsmzjmxg metabolic panelMukesh Marley MD Work Phone: Start: 39-19-4744Vxktfaw tobacco smokerAijuanito Nagy Work Phone: Start: 03-79-6592Kcux bld gluc mntr dev cleared fda spec home useAimeki Nagy Work Phone: Start: 18-23-7288Uhuggsrldi glycosylated a1bHiodt Cotten Work Phone: Start: 03-87-3280Asctnsrfhbkwi w/patient 30 minutes Leah Short Work Phone: Start: 58-84-1792Zp lumbar spine w/o contrast material Marita Munoz Work Phone: Start: 49-07-6364Nf thoracic spine w/o contrast materialMarita Munoz Work Phone: Start: 28-31-4197Stkle of troponin quantitativeFredy Billingsley Work Phone: Start: 26-04-9470Aivgj of troponin quantitativeFredy Billingsley Work Phone: Start: 46-17-6537Rturb count complete auto&auto difrntl wbcJosallie Billingsley Work Phone: Start: 30-58-9026Ejeqafystkg peptideJosallie Billingsley Work Phone: Start: 83-51-0111Mqcivheuwfx timeJosallie Billingsley Work Phone: Start: 91-96-8334Iszihcehpuxwz rate rbc automated Fredy Billingsley Work Phone: Start: 82-01-7859Lzczitpwohybht time partial plasma/whole bloodFredy Billingsley Work Phone: Start: 66-76-7237Czgzqrnjzv exam chest 2 viewsFredy Billingsley Work Phone: Start: 44-05-8004Hfwsc hip unilateral with pelvis 2-3 viewsFredy Billingsley Work Phone: Start: 15-59-2026Tlg routine ecg w/least 12 lds w/i&r Deion Loaiza Work Phone: start: 33-50-6488Epszlzg blood [facility] stripEast[facility] Work Phone: Start: 08-20-6290Nnavjsl blood reagent stripEastpointe Hospital Work Phone: Start: 83-75-7595Oxwtz count complete auto&auto difrntl wbcMa'En Al-Dabbas Work Phone: Start: 57-25-4116Zlede count complete automatedMa'En Al-Dabbas Work Phone: Start: 21-38-9210Zjbprww blood reagent stripCo[facility] Hospitaler [facility] Work Phone: Start: 31-04-6189Fdfhbrk blood reagent stripCopper Springs Hospitaler [facility] Work Phone: Start: 62-97-0563IEUK LAB REPORTHpf ScanningStart: 35-18-3740Bujbfpaceqdeamt and angiography procedure details panelHemrd Martinez Work Phone: Start: 69-56-7957ZHUJC METABOLIC PANEL W/ REFLEX TO MG FOR LOW Lei F O Ahmad Work Phone: Start: 14-57-8011Itscu count complete automatedAli F O Ahmad Work Phone: Start: 97-25-4739Zrmdi of troponin quantitativeAli F O Ahmad Work Phone: Start: 45-52-0308Iwmbv of troponin quantitativeAli F O Ahmad Work Phone: Start: 38-76-9884Mkgxbvfqximbvpf and angiography procedure details Warren Stephens Work Phone: Start: 41-76-9512Thdwebncdu exam chest single view Charlotte Fatuma Work Phone: Start: 76-29-7005Ptw routine ecg w/least 12 lds w/i&r Charlotte Fatuma Work Phone: Start: 42-80-1381Yzpjk of troponin quantitativeR[facility] Work Phone: Start: 17-90-2762Lxwjj count complete automatedRiverside Behavioral Health Center Work Phone: Start: 02-09-5649Wneguduvckjjw metabolic panelRiverside Behavioral Health Center Work Phone: Start: 23-16-8316Wjyionbekgw peptideRiverside Behavioral Health Center Work Phone: Start: 07-98-8711Fbnxbqudqr exam chest single viewEtan E Eitches Work Phone: Start: 91-64-1690Bppjg of troponin quantitativeEtan E Eitches Work Phone: Start: 41-42-8443Xgllv metabolic panel calcium total Mukesh E Eitches Work Phone: Start: 97-15-3244Ymith count complete auto&auto difrntl wbcEtan E Eitches Work Phone: Start: 82-55-7855Blwsugktynb peptideEtan E Ayaka Work Phone: Start: 77-88-1463Vjx routine ecg w/least 12 lds w/i&r Mukesh E Ayaka Work Phone: Start: 15-40-2973Lmymc hips bilateral with pelvis 3-4 viewsDeion Loaiza Work Phone: start: 93-47-5823Zbeiytzvfx microscopic onlyDeion Loaiza Work Phone: start: 57-67-0864Fawvg dip stick/tablet rgnt auto w/o microscopyDeion Loaiza Work Phone: start: 02-26-7769Lnouzjj tobacco smokerVahid Nagy Work Phone: Start: 45-17-1802Nhjhg bp <80 mm hgjuanito Nagy Work Phone: Start: 23-01-9108Czvd test prsmv read direct optical obs pr dateVahid Nagy Work Phone: Start: 44-91-6164Qnomkbryhfbok w/patient 30 minutes Leah Short Work Phone: Start: 77-57-5486Rk tobacco screen rcvd tlkAjoelle Nagy Work Phone: Start: 55-29-4634Hlwe bp lt 130 mm hgjuanito Nagy Work Phone: Start: 59-86-4233Fuheb of thyroid stimulating hormone tshVahid Nagy Work Phone: Start: 18-15-7080Wuuyn count complete auto&auto difrntl wbcAijuanito Nagy Work Phone: Start: 27-80-2596Ctpsqnuecghag metabolic panelVahid Nagy Work Phone: Start: 72-18-5498Xcovo panelVahid Nagy Work Phone: Start: 88-76-5356Wembhcytvc microscopic onlyAimee M Angelita Work Phone: Start: 56-16-8395Rkbrt dip stick/tablet rgnt auto w/o microscopyAijuanito Nagy Work Phone: Start: 80-04-0090Zynj bld gluc mntr dev cleared fda spec home useAimeki Nagy Work Phone: Start: 68-53-1320Tdtsm dip stick/tablet rgnt non-auto w/o micrscpAimee Angelita Work Phone: Start: 98-04-8072Xghku bp 80-89 mm hgShawna Holliday Work Phone: start: 38-23-5746Eqqwmnwrfipky w/patient 30 minutes Nitza Mark Work Phone: Start: 45-40-5165Qw tobacco screen rcvd tlkKara Mg Work Phone: Start: 07-17-0206Bbgb bp ge 130 - 139mm hgShawna Holliday Work Phone: Start: 57-56-8869Pudcd of troponin quantitativeSyed A [employer] Work Phone: Start: 80-62-9753Mcisd of lipaseSyed A [facility] Work Phone: Start: 14-83-4506Hlxpi of troponin quantitativeSyed A Fish Work Phone: Start: 47-37-5853Unokojwfydkpd metabolic panelSyed A Fish Work Phone: Start: 24-02-0932Lhdpqfrcoz exam chest 2 viewsSyed A Fish Work Phone: Start: 16-98-0335Vg head/brain w/o contrast material Wesly A [employer] Work Phone: Start: 86-33-1558Lummq of ammoniaSyed A [facility] Work Phone: Start: 39-89-0210Rllkq count complete auto&auto difrntl wbcSyed A Fish Work Phone: Start: 69-87-2266ZDUADQHV REJECTIONSyed A Fish Work Phone: Start: 20-85-0122Si thorax w/contrast materialMichael L FitzpatrickStart: 86-38-4289Rlauh dip stick/tablet reagent auto microscopy Nia Naranjo FithillarypatrickStart: 15-33-0622YCSGC GAS, ARTERIALMichael L Carey Start: 11-50-8078RVITB-19Michael L FitzpatrickStart: 27-48-8066Mmn routine ecg w/least 12 lds w/i&rMichael L FitzpatrickStart: 57-83-0910Ylcjbfcyll exam chest single viewMichael L FitzpatrickStart: 21-09-5470Iybbu of troponin quantitative Nia Naranjo MohanpatrickStart: 54-13-7903Hiwom metabolic panel calcium totalMichael L FitzpatrickStart: 34-59-5717Fapuk count complete auto&auto difrntl wbcMichael L FitzpatrickStart: 52-51-9136Lfhrte dgradj products d-dimer quantitative Nia Naranjo MohanpatrickStart: 97-26-0225JXVZLCD, SEPSISMichael L FitzpatrickStart: 01-01-4448Ybntkdtawlh peptideMichael L FitzpatrickStart: 50-41-3244ZBWXOWYWCE CARBON MONOXIDEMichael L FitzpatrickStart: 55-73-2409TREED-19Luis E Bobyb Work Phone: Start: 02-17-1250Tinfgqx tobacco smokerShawna Holliday Work Phone: Start: 89-68-6178Zyxov bp <80 mm hgShawna Holliday Work Phone: Start: 58-47-4491Nywu bld gluc mntr dev cleared fda spec home useShawna Holliday Work Phone: Start: 18-09-7417Cyuvdxjess glycosylated h5zHqjpShawna Holliday Work Phone: Start: 22-55-1121Uwekgeynlexla w/patient 30 minutes Leah Short Work Phone: start: 59-59-0773Gr tobacco screen rcvd tlJesusita Holliday Work Phone: Start: 70-84-1637Ywyc bp lt 130 mm hgShawna Holliday Work Phone: Start: 19-95-9377Lmvyl metabolic panel calcium total Ali F O Ahmad Work Phone: Start: 58-32-7807Bqclv count complete automatedAli F O Ahmad Work Phone: Start: 98-56-8410ZUOMX-19Luis E Bobby Work Phone: Start: 47-83-9028Lviuvlucsflzs w/patient 30 minutes Leah Short Work Phone: Start: 22-21-6073Pnfs tthrc r-t 2d w/wom-mode compl spec&colr Claire F O Ahmad Work Phone: Start: 08-04-6106Bxlkzbbqlmowv w/patient 30 minutes Leah Short Work Phone: start: 53-40-5402Mpsgqfc blood reagent stripJames A Deb Work Phone: Start: 83-41-1396Vqskint blood reagent stripJames A Deb Work Phone: Start: 69-02-8879Lsfnf of magnesiumEbere Harish Work Phone: Start: 10-40-8877WZIIU METABOLIC PANEL W/ REFLEX TO MG FOR LOW KEbere Harish Work Phone: Start: 80-70-1893Hzorpdw blood reagent stripJames A Deb Work Phone: Start: 23-37-6109Uopcyli blood reagent stripJames A Deb Work Phone: Start: 25-27-1490Izechyk blood reagent stripJames A Deb Work Phone: start: 87-88-9557Lmisywy blood reagent stripJames A Deb Work Phone: Start: 23-74-3741Xweap count complete auto&auto difrntl wbcEbere Harish Work Phone: Start: 70-82-7431Xyszahh blood reagent stripJames A Deb Work Phone: Start: 30-48-2658Xnqwlmo blood reagent stripJames A Deb Work Phone: Start: 66-70-5497Tfwqusm blood reagent stripJames A Deb Work Phone: start: 67-07-0897DGYIW METABOLIC PANEL W/ REFLEX TO MG FOR LOW KSrinivas Antonio Work Phone: Start: 80-29-4190Wfxfvwl blood reagent stripJames A Deb Work Phone: Start: 05-89-5657Tjkmgwh blood reagent stripJames A Deb Work Phone: Start: 49-99-6044EYKYFOTFNGNnmicfkh Antonio Work Phone: start: 23-36-0386Bhkxwik blood reagent stripJames A Deb Work Phone: start: 87-02-4209WDBSI METABOLIC PANEL W/ REFLEX TO MG FOR LOW KSrinivas Antonio Work Phone: Start: 97-79-3950Qcigx count complete auto&auto difrntl wbcSrinivas Antonio Work Phone: Start: 13-63-6127Eyktcbi blood reagent stripJames A Deb Work Phone: start: 39-27-5233Pbtzthv blood reagent stripJames A Deb Work Phone: start: 25-33-6126Cxyht count hemoglobinRathnavali Antonio Work Phone: Start: 12-72-2011Upyeyyh blood reagent stripJames A Deb Work Phone: start: 07-80-1398Snhfxjs blood reagent stripJames A Deb Work Phone: Start: 69-39-3850GAQEZ METABOLIC PANEL W/ REFLEX TO MG FOR LOW KJames A Deb Work Phone: Start: 34-66-6421Qcqtq count complete auto&auto difrntl wbcJames A Deb Work Phone: Start: 65-40-8361Olbtqht blood reagent stripJames A Deb Work Phone: Start: 66-05-9321Aejfcwy blood reagent stripJames A Deb Work Phone: Start: 55-67-3827Kebkksw blood reagent stripJames A Deb Work Phone: Start: 59-32-7921Rgk routine ecg w/least 12 lds i&r onlyAstrid Ross Work Phone: Start: 63-08-7284MXZ REPORTHpf ScanningStart: 77-10-5529Krolmsq blood reagent stripJames A Deb Work Phone: Start: 88-11-2157Xzdagzvd mycoplsmRathnavali Antonio Work Phone: Start: 75-88-1659Dznre s aureus methicillin resist amp probe tqLuis E Bobby Work Phone: Start: 73-49-5852Njxrbgy blood reagent stripJames A Deb Work Phone: Start: 35-86-7329Uxarl of triglyceridesRatika Aryan Work Phone: Start: 55-51-9198JZTGB METABOLIC PANEL W/ REFLEX TO MG FOR LOW KJames A Deb Work Phone: Start: 92-07-4399Dnkwc count complete auto&auto difrntl wbcJames A Deb Work Phone: Start: 03-46-3199Uccpdkv blood reagent stripJames A Deb Work Phone: Start: 77-49-3097Snhdeju blood reagent stripJames A Deb Work Phone: Start: 49-13-2754Tadrtto blood reagent stripJames A Deb Work Phone: Start: 05-39-8182Dcnkw respiratry probe & rev trnscr 12-25 targetVinod Kim Work Phone: Start: 93-70-0580TQYDI-19Vinod Kim Work Phone: Start: 68-31-3212Bsy routine ecg w/least 12 lds i&r onlyRatika Aryan Work Phone: Start: 75-06-1488UTD REPORTHpf ScanningStart: 91-66-2116Eldxj of lactateJames A Deb Work Phone: Start: 05-23-7426Dwnzi of thyroid stimulating hormone tshJames A Deb Work Phone: Start: 11-25-2315MXPPL METABOLIC PANEL W/ REFLEX TO MG FOR LOW KJames A Deb Work Phone: Start: 94-52-1123Fcaao count complete auto&auto difrntl wbcJames A Deb Work Phone: Start: 82-06-4999F-reactive proteinJames A Deb Work Phone: Start: 58-01-8137Jsusfue blood reagent stripJames A Deb Work Phone: Start: 93-13-7351Kdkqbaz blood reagent stripJames A Deb Work Phone: Start: 66-47-2241Umhgvzqnfi microscopic onlyRatika Aryan Work Phone: Start: 54-44-4285Ndlxo dip stick/tablet rgnt auto w/o microscopyRatika Aryan Work Phone: Start: 18-32-9719Hkkfplu blood reagent stripJames A Deb Work Phone: Start: 07-16-2018VDSMHGV, BLOOD 1Ratika Aryan Work Phone: Start: 07-40-0936Hirbddekvz exam abdomen 1 viewBrendan Hum Work Phone: Start: 74-03-5706Dgspwud blood reagent stripJajordan Lane Deb Work Phone: Start: 93-61-8300Brkybrmmcf exam chest single view Ratidemarcus Aryan Work Phone: [phone]: 49-75-1510RAAQISZI BLOOD GAS, POCJajordan A Deb Work Phone: Start: 26-00-8957Diwl bld gluc mntr dev cleared fda spec home useJames A Deb Work Phone: Start: 12-74-2753Pbmqoyv bacterial blood aerobic w/id isolatesRatika Aryan Work Phone: Start: 15-09-6071Yicfm of ferritinRatika Aryan Work Phone: Start: 69-96-0091Fbplt of magnesiumRatika Aryan Work Phone: Start: 80-10-5912Mqgpr of troponin quantitativeRatika Aryan Work Phone: [phone]: 23-45-8270NJMMX METABOLIC PANEL W/ REFLEX TO MG FOR LOW KRatika Aryan Work Phone: Start: 27-74-6667Qgjaxhk ionizedRatika Aryna Work Phone: Start: 56-65-9353Ddbppc bodies serum quantitative Ratika Aryan Work Phone: Start: 00-93-9062Fhymoxp dehydrogenase ldhRatika Aryan Work Phone: [phone]: 02-66-1533SYXBDHPF BLOOD GAS, POCJajordan A Deb Work Phone: Start: 89-44-2185Cqif bld gluc mntr dev cleared fda spec home useJajordan A Deb Work Phone: Start: 13-81-0590ENMNWDGFRNWduxrp Aryan Work Phone: Start: 74-18-6568SRKXS GAP (CALC) POCChago Boyd Work Phone: Start: 39-20-7339Hiopd count hemoglobinJajordan Lane Deb Work Phone: Start: 63-37-3441JRLGYTV, IONIC (POC)Chago Lane Deb Work Phone: Start: 27-74-2262Aozcyfix [Moles/Vol]Chago Lane Deb Work Phone: Start: 42-79-4096UUEOGAPEMF W/GFR POINT OF CAREChago Cherrya Work Phone: Start: 32-95-7965Rmfa bld gluc mntr dev cleared fda spec home useChago Lane Deb Work Phone: Start: 06-95-8495JZVIHA ACID,POINT OF CAREChago A Deb Work Phone: Start: 30-02-9983JCONO VENOUS GAS, POINT OF CAREChago Lane Deb Work Phone: Start: 63-37-0275LQTDTPPNRXRI PANEL, POCChago Lane Deb Work Phone: Start: 81-33-1817Yddmblgqx [Moles/Vol]Chago Lane Deb Work Phone: Start: 34-77-5327Xchuzr [Moles/Vol]Chago Lane Deb Work Phone: Start: 13-38-5834Aytng s aureus methicillin resist amp probe tqLuis E Bobby Work Phone: Start: 99-86-2667Zuxf ia mult step method nos each organismRatika Aryan Work Phone: Start: 11-77-2927DBZYJ PNEUMONIAE ANTIGENRatika Aryan Work Phone: Start: 25-78-5006Gzzcjuf blood reagent stripChago Lane Deb Work Phone: Start: 48-90-0090PSYOGTRGOXA CARE EVALUATION ONLY Ratika Aryan Work Phone: Start: 70-22-2243Ta thorax w/contrast materialSyed A Fish Work Phone: Start: 63-90-2849Wufc screen class list aTyler ZAP Work Phone: Start: 25-44-7388Xttqayutue microscopic onlyTyler ZAP Work Phone: Start: 62-91-3160Wmvfn dip stick/tablet rgnt auto w/o microscopyTyler ZAP Work Phone: Start: 75-10-2790Dezdx of ammoniaTyler ZAP Work Phone: Start: 99-90-1806ILAPRB/HUMIDIFIED HIGH FLOW NASAL CANNULASyed A Fish Work Phone: Start: 83-58-9742Eim routine ecg w/least 12 lds w/i&r Luis ZAP Work Phone: Start: 29-99-1109Uzrtetxkmf exam chest single view Luis ZAP Work Phone: Start: 30-39-1353LZRYI GAS, ARTERIALTyler ZAP Work Phone: Start: 21-36-1382Ez head/brain w/o contrast material Luis ZAP Work Phone: Start: 76-83-6245Pfxcr of ethanolTyler ZAP Work Phone: Start: 74-09-5274Roqfe of troponin quantitativeTyler ZAP Work Phone: Start: 43-60-9988Pncxe count complete auto&auto difrntl wbcTyler ZAP Work Phone: Start: 09-49-9818Pzomtjmf kinase totalTyler ZAP Work Phone: Start: 65-85-2127Kymzay dgradj products d-dimer quantitativeTyler ZAP Work Phone: Start: 90-67-3128Inwkfprihdd peptideTyler ZAP Work Phone: Start: 93-25-9748Jyhdaslleyz timeTyler ZAP Work Phone: Start: 27-76-2091Akenpoc gave verbal consent for telehealthjuanito Rowlandtart: 91-18-4079UXXYS CANNULA OXYGENEtan E Eicas Work Phone: Start: 42-63-5348Sywul of troponin quantitativeWiadalidwinter Foley Work Phone: Start: 32-77-8269Qqpai count complete auto&auto difrntl wbcWisuryarashida Foley Work Phone: Start: 40-97-5710Sktaiwozlpcxi metabolic panelWisuryarashida Foley Work Phone: Start: 74-13-7503Ayw routine ecg w/least 12 lds w/i&r Ab Ariana Foley Work Phone: Start: 97-85-8747Sinpr hand minimum 3 viewsTyler Emily Work Phone: Start: 74-05-2267Iheui bp 80-89 mm hgVahid Nagy Work Phone: Start: 75-21-1507Rh tobacco screen rcvd tlkAjoelle Nagy Work Phone: Start: 83-69-9986Amnr bp >/= 140 mm hgVahid Nagy Work Phone: Start: 12-68-8518YVPAVUF, WHOLE BLOODMark Albert De Santiago MD Work Phone: Start: 84-23-5989BPCGSKW, WHOLE BLOODMark Albert De Santiago MD Work Phone: Start: 24-10-2444Xgfrr metabolic panel calcium total Ziggy Smith MD Work Phone: Start: 99-67-6154SRPAQEL, WHOLE BLOODMark Albert De Santiago MD Work Phone: Start: 93-75-5714CCACONU, WHOLE BLOODMark Albert De Santiago MD Work Phone: Start: 20-16-4720Hlwjm s aureus methicillin resist amp probe tqMark Albert De Santiago MD Work Phone: start: 62-85-4116OYMSTNR, WHOLE BLOODMark Albert De Santiago MD Work Phone: Start: 75-96-5179AMHNDRK, WHOLE BLOODMark Albert De Santiago MD Work Phone: Start: 57-00-3634Hlopu metabolic panel calcium total Ziggy Smith MD Work Phone: Start: 93-77-6763CYKYGMW, WHOLE BLOODMark Albert De Santiago MD Work Phone: Start: 42-54-2500KIPENXX, WHOLE BLOODMark Albert De Santiago MD Work Phone: Start: 61-86-5550MCVZEIG, WHOLE BLOODMark Albert De Santiago MD Work Phone: Start: 00-73-4136Uwmrm metabolic panel calcium total Ziggy Smith MD Work Phone: Start: 63-43-2622AZPQAJZ, WHOLE BLOODMark Albert De Santiago MD Work Phone: Start: 90-68-0355UVZNN GAS, ARTERIALChristopher Cynthia Smith MD Work Phone: Start: 38-10-4135Quiet of lactateOliva Tristan E[employer]ET 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 Work Phone: Start: 44-45-5379NLXFJYB, WHOLE BLOODMark Albert De Santiago MD Work Phone: Start: 04-22-2019 End: 26-63-1405MMGMR GAS, ARTERIALChristopher Cynthia Smith MD Work Phone: Start: 92-49-0399Pgsedwgdmoinn metabolic panelMark Albert De Santiago MD Work Phone: Start: 60-92-7641Zjhvnrk bacterial quanttative colony count urineSyaj Whitten MD Work Phone: Start: 06-67-7460Zlord dip stick/tablet rgnt auto w/o microscopySyaj Whitten MD Work Phone: Start: 70-38-1421JXH CLINICAL BEDSIDE SWALLOW EVALUATION & TREATMENTMark Albert De Santiago MD Work Phone: Start: 60-71-7220Qydovyc bacterial blood aerobic w/id isolatesSyed Ariana Whitten MD Work Phone: Start: 99-25-0046Wr thorax w/contrast materialJustin Andes DO Work Phone: Start: 09-07-5445LHQGS METABOLIC PANEL W/ REFLEX TO MG FOR LOW KJustin Andes DO Work Phone: Start: 89-73-8202Xthwqas bacterial blood aerobic w/id isolatesSyed Ariana Whitten MD Work Phone: Start: 68-85-3650Jdcpkru function panelSyed Ariana Whitten MD Work Phone: Start: 35-84-6759Ppzacys [Moles/volume] in Serum or PlasmaJustin Andes DO Work Phone: Start: 60-06-3779Uulvtnrowkd timeSyed Ariana Whitten MD Work Phone: Start: 84-80-2059Mqtfzfmmpe exam chest 2 viewsJustin Andes DO Work Phone: Start: 31-54-7821Ljnlx bp >/= 90 mm hgAijuanito Nagy Work Phone: start: 51-89-8223Siaz test prsmv read direct optical obs pr dateVahid Nagy Work Phone: Start: 34-44-2262Dlplvjopobccv w/patient 30 minutes Zach Grimaldo Work Phone: Start: 78-35-5670Drgk bp lt 130 mm hgAijuanito Nagy Work Phone: start: 61-76-0876Og head/brain w/o contrast material Harish Sebastian DO Work Phone: Start: 11-72-0260Vp angiography neck w/contrast/noncontrastAlexseth Sebastian DO Work Phone: Start: 25-00-1307Duoph of troponin quantitative Harish Sebastian DO Work Phone: Start: 87-08-1783YKMHZ METABOLIC PANEL W/ REFLEX TO MG FOR LOW KAlexander Ariana AlertMetaran DO Work Phone: Start: 68-90-7090Aca routine ecg w/least 12 lds w/i&r Harish Sebastian DO Work Phone: Start: 04-12-2019 End: 16-92-8627Ypyvi spine cervical 2 or 3 viewsAlexander Ariana AlertMejanieJagex DO Work Phone: Start: 59-90-7935Ztfxd bp >/= 90 mm hgAimee Angelita Work Phone: start: 74-95-3462Dnwr bp >/= 140 mm hgAimee GetBack Work Phone: start: 96-44-9505Yuwms bp 80-89 mm hgCassie King Work Phone: Start: 84-87-6075Enwv bp ge 130 - 139mm hgCassie King Work Phone: start: 26-25-7854Zmndv dip stick/tablet reagent auto microscopyMichael Oertly Work Phone: Start: 03-69-4292Vsw abdl aorta&bi iliofem w/contrast&postpMichael Oertly Work Phone: Start: 68-89-9614Lztyv of lipaseMichael Oertly Work Phone: Start: 68-05-9824Twass of troponin quantitativeMichael Oertly Work Phone: Start: 13-05-4052Hanph count complete auto&auto difrntl wbcMichael Oertly Work Phone: Start: 32-43-8325Kitkchevujxig metabolic panelMichael Oertly Work Phone: Start: 35-66-3219Lquppvnvbmh timeMichael Oertly Work Phone: Start: 80-06-4500Byx spinal canal lumbar w/o contrast materialMelcarlos Fritz Work Phone: Start: 87-86-6081Nqdhk bp <80 mm hgVahid Nagy Work Phone: start: 79-00-6112Adbx test prsmv read direct optical obs pr dateVahid Nagy Work Phone: Start: 58-87-3033CYFSRLZRTHQI (SYSTEMIC)Vahid Nagy Start: 15-23-8870Oomsqrmgjsnyi w/patient 30 minutesStevernestina Grimaldo Work Phone: Start: 29-82-8182Qigd bp ge 130 - 139mm hgVahid Nagy Work Phone: start: 01-39-7032Vnik test prsmv read direct optical obs pr dateLee Karla Bryan Work Phone: Start: 08-06-2543Gdpjrrq of influenza vaccinationAijuanito Rowlandtart: 50-52-3631Edecw of troponin quantitativeJames P Kian Work Phone: Start: 83-16-3896Iwqwu spine cervical 2 or 3 views Chago Langston Work Phone: Start: 49-82-5272Lyhms spine lumbosacral 2/3 views Chago Langston Work Phone: Start: 11-47-2031Sodbh shoulder complete minimum 2 viewsJames P Kian Work Phone: Start: 87-00-1209Vtdmeghvlb exam chest 2 viewsJames P Kian Work Phone: Start: 54-66-0967Bll routine ecg w/least 12 lds w/i&r Chago Langston Work Phone: Start: 71-54-5840Tarvk of troponin quantitativeJames P Kian Work Phone: Start: 69-28-7203LMTDV METABOLIC PANEL W/ REFLEX TO MG FOR LOW KJames P Kian Work Phone: Start: 01-15-6292Dljii count complete auto&auto difrntl wbcJames P Kian Work Phone: Start: 91-23-4365Sdksw dip stick/tablet rgnt auto w/o microscopyJames P Kian Work Phone: Start: 65-10-2818Esdxu shoulder complete minimum 2 viewsCassie L King Work Phone: Start: 99-98-5145Eonvc bp <80 mm hgCassie King Work Phone: start: 36-81-0367Kmwxkapcny glycosylated f3gYiggnr King Work Phone: Start: 47-34-6590Bxflupjxh tromethamine injCassie King Work Phone: Start: 34-62-1431Ob-focused hlth risk assmt score doc stnd instrmCassie King Work Phone: Start: 07-83-9638Oucp bp lt 130 mm hgCassie King Work Phone: Start: 13-60-6718Rnblwzmqhux prophylactic/dx injection subq/imCassie King Work Phone: Start: 10-00-2887Kmvpg bp 80-89 mm hgAimee Angelita Work Phone: Start: 00-48-8280Rnkh test prsmv read direct optical obs pr dateVahid Nagy Work Phone: Start: 90-90-2088Ieqr bp ge 130 - 139mm hgAimee Angelita Work Phone: Start: 30-15-6060Wfhmn bp <80 mm hgAimee Angelita Work Phone: Start: 13-17-3707Ekxh test prsmv read direct optical obs pr dateAijuanito Nagy Work Phone: Start: 65-90-2231Ttuafsenlblkm w/patient 30 minutes Zach Grimaldo Work Phone: Start: 32-65-1306Iaeg bp >/= 140 mm hgAijuanito Nagy Work Phone: Start: 14-26-7386Tigxu dip stick/tablet rgnt non-auto w/o micrscpAjoelle Nagy Work Phone: Start: 96-99-6238Vkqsf occult fecal hgb deter ia qual feces 1-3Aimee Angelita Work Phone: Start: 80-05-5298Milaa bp 80-89 mm hgAimee Angelita Work Phone: Start: 87-45-9361Rdea bld gluc mntr dev cleared fda spec home useVahid Nagy Work Phone: [phone]: 93-95-5999Omykdmwmss glycosylated e5gEolqvjuanito Nagy Work Phone: [phone]: 89-15-8983Lmpi bp >/= 140 mm hgCommunity Healthki Nagy Work Phone: Start: 54-93-2281KCMGLHHK MELLITUSAinhe DaniellaProvidence VA Medical Centertart: 86-72-0629Fjvvc bp <80 mm hgCommunity Healthki Nagy Work Phone: Start: 01-48-6983Jzrz test prsmv read direct optical obs pr Veronica Nagy Work Phone: Start: 75-96-3436Wgfv bld gluc mntr dev cleared fda spec home useVahid Nagy Work Phone: Start: 73-91-4088Gwdlluhbkf glycosylated s9zMylnqjuanito Nagy Work Phone: Start: 43-60-1620Ztxqchsgdnfsb w/patient 30 minutes Zach Grimaldo Work Phone: Start: 50-85-2485Meqp bp lt 130 mm hgjuanito Nagy Work Phone: Start: 03-35-7120Onwx test prsmv read direct optical obs pr Veronica Nagy Work Phone: Start: 17-63-2603rptlledy hospitalizationsjuanito Nagy Start: 80-79-5886Mjpb test prsmv read direct optical obs pr Veronica Nagy Work Phone: start: 49-08-9389RjjeqydfjdmkimhMjbdu [facility] Hospitaltart: 88-22-8200LewawbptdfgbjdbYroff [facility] Hospitaltart: 45-81-3817Zihe test prsmv read direct optical obs pr Veronica Nagy Work Phone: start: 10-94-7834Ktjt bld gluc mntr dev cleared fda spec home useCommunity Healthki Nagy Work Phone: start: 68-73-5951Dgqjxycjcp glycosylated m4fAftsg Angelita Work Phone: start: 63-15-8783ZVRXYWNWZ INTERVERTEBRAL DISCAiTemecula Valley Hospitaltart: 74-56-5013PaequfmfimppXvrxh CottenStart: 79-17-6374JOOHAJBRHAQRUF DISC DEGENERATIONRutland Regional Medical Centertart: 93-64-4772Isi/trnsxj flp tube abdl/vag appr uni/biRutland Regional Medical Centertart: 06-54-9611Dhmumwqh of fallopian tubeMcleod Health ClarendonenStart: 24-48-8842GTBNMRPBzrsp CottenStart: 88-79-8279mgxj medical/surgical history [use for free text]VahidSouthwestern Vermont Medical Centertart: 72-74-5632Dbszbapcbtet transluminal coronary angioplastyRutland Regional Medical Centertart: 13-71-8178Ymrex abdominal hysterect w/wo rmvl tube ovaryAiTemecula Valley Hospitaltart: 09-89-8095Ctypt x-rayRutland Regional Medical Centertart: 02-10-2018 Colorectal Screening Obtain ResultsMcleod Health Clarendontart: 99-11-4460Vhxkyrgmpd Screening Results in ChartMcleod Health Clarendontart: 01-20-2018 End: 97-98-9011Zoouoscwdw qual/semiquant except immunoassaysAimeNortheastern Vermont Regional Hospitaltart: 89-46-8624QO A1C LEVEL LT 7.0%[facility] Health Clarendontart: 61-42-0752UmhjvukadhyjsXsgky Cotttart: 11-26-2017 End: 80-77-4518Xswd bld gluc mntr dev cleared fda spec home useVahid Nagy Start: 11-26-2017 End: 36-64-4102Rsfjmiyjkg glycosylated r9wHshsnjuanito Rowlandrt: 99-11-1297Ier bact xcpt urine blood/stool aerobic isoljuanito Rowlandrt: 58-79-7327Djcebxtu Therapy.Singh Azevedoart: 17-83-5452Uysotzorohinh w/patient 30 minutesStevEncompass Health Rehabilitation Hospitalart: 09-11-2017 End: 82-62-6285Tczh bld gluc mntr dev cleared fda spec home useAijuanito Angelita Start: 09-11-2017 End: 86-22-9501EEZ3 AdministeredStevEncompass Health Rehabilitation Hospitalart: 24-45-5291SFMTS BP >/= 90 MM HGSteOchsner Rush Healthart: 37-42-9924QVBA BP >/= 140 MM HGSSt. Francis Hospital: 08-16-2017 End: 74-96-3985Kcdx bld gluc mntr dev cleared fda spec home useVahid Angelita Start: 02-98-0195Mqcj Management.Singh Galvinart: 08-06-2017 End: 42-07-1880V-reactive proteinAinhki Rowlandrt: 08-06-2017 End: 59-06-2386Yhzszgudmsylm metabolic panelAijuanito Rowlandrt: 08-06-2017 End: 57-05-3783Nyo bone density study 1/> sites axial skelAjoelle Rowlandrt: 08-06-2017 End: 89-50-2643Oiyf bld gluc mntr dev cleared fda spec home useVahid Breweren Start: 08-06-2017 End: 02-49-0535Bjbknvgiymt analyte qual/semiqual multiple stepAimeki Rowlandtart: 08-06-2017 End: 93-67-5826Hlkal spine cervical 2 or 3 viewsAinhki Brewertart: 08-06-2017 End: 94-26-4336Dzgzf spine lumbosacral 2/3 viewsAijuanito Rowlandtart: 08-06-2017 End: 67-98-5057Uumss spine thoracic 2 viewsAijuanito Rowlandtart: 08-06-2017 End: 47-70-9616Ivyhgvcsgddns rate rbc automatedAijuanito Rowlandrt: 07-29-2017 End: 57-58-1482Hvcl bld gluc mntr dev cleared fda spec home useAimeki Angelita Start: 07-29-2017 End: 47-29-1205Qpojfpyqwe glycosylated v4xVtmlijKindred Healthcareart: 02-20-2017 End: 26-43-7017Oqorlz Services Office VisitSSt. Francis Hospital: 93-58-6357Xvdtr spine lumbosacral 2/3 viewsAijuanito Rowlandtart: 69-40-2759RL A1C LEVEL 7.0-9.0% Zach Dillanart: 01-16-2017 End: 16-61-3401Hxmcuf Services Office VisitSBroaddus Hospitalart: 91-54-3547UTUSX BP <80 MM [facility]art: 49-31-1964PF A1C LEVEL 7.0-9.0%Zach Dillan Start: 99-91-0738LCRD BP LT 130 MM [facility]: 24-52-8396Tgruhdorim Screening Results in [facility]: 82-82-2094Lddyj of thyroid stimulating hormone tshStKindred Healthcareart: 34-68-9754Qeotz count complete auto&auto difrntl wbcStKindred Healthcareart: 67-14-2174Vthfftykws venous blood venipunctureStKindred Healthcareart: 12-14-2016 End: 93-56-5273Iosckbjxlzbvz metabolic panelSSt. Francis Hospital: 12-14-2016 DIAST BP <80 MM [facility]art: 12-14-2016 End: 02-14-2523Phaizwzcf c antibodyStKindred Healthcareart: 73-01-8730QH A1C LEVEL LT 7.0%Zach Grimaldoart: 12-42-4252Rfsas panelSSt. Francis Hospital: 96-92-1618MCG6 AdministeredStKindred Healthcareart: 36-92-5581Plhhvkejuavrl w/patient 30 minutesStevForrest General Hospital: 07-12-2114IALLA NegativeSSt. Francis Hospital: 35-79-1910Pepwxcybs, Brief Intervention, Referral and Treatment Zach Dillanart: 50-10-7051NEIJ BP LT 130 MM [facility]art: 12-14-2016 End: 59-72-7480DLOY EXAM PERFORMEDStKindred Healthcareart: 12-14-2016 End: 64-26-1470Onww bld gluc mntr dev cleared fda spec home useVahid Nagy Start: 12-14-2016 End: 31-54-8704Czugfjqpzo glycosylated m1eMfeopf [facility] Centerart: 06-81-4303JVO6 AdministeredSternestina Dillanart: 71-18-9239Eqncccayvhdxc w/patient 30 minutes Zach Dillanart: 45-02-7798BRRJY Pre-Screening *NEGATIVE*Zach Grimaldo Start: 94-63-8006Motkpvhwh, Brief Intervention, Referral and Treatment (Indicate category below)Zach Dillanart: 73-10-6719Tbufjpq cessation educationSternestina [facility] Centerart: 97-09-4272UelowmdfavbDptvrz Iacob MD Work Phone: Start: 54-30-8026Hdssm of thyroid stimulating hormone tshSternestina [facility] Centerart: 77-25-2139Fthsp count complete auto&auto difrntl wbc Zach DillanStart: 19-48-6833Ypyxnccmgd venous blood venipunctureSternestina Dillanart: 03-11-2015 End: 89-88-5738Jqvnxutwnrznu metabolic panelSBroaddus Hospitalart: 47-73-2816Omdg screen multi drug classStKindred Healthcareart: 06-97-7552Isdtt panelSBroaddus Hospitalart: 42-35-6817Qiz not indicatedStKindred Healthcareart: 28-75-6853Chfs bld gluc mntr dev cleared fda spec home useAinhki DaniellaProvidence VA Medical Centerrt: 03-11-2015 Mammogram, screeningAinhki [facility] Unitrt: 81-97-5057Xfihbmusub Health Coordination of Carekamillaernestina Dillanart: 02-10-2015 End: 42-75-5874Ownegglbnge w/biopsy single/multipleSternestina Dillanart: 94-51-2146ACR2 AdministeredLos Alamos Medical Centerernestina Dillanart: 82-54-7105Tztunlahyvzmn w/patient 30 minutesSternestina Grimaldoart: 28-10-0657Jhlwnekq to dental for routine/urgent dental care.Zach Dillanart: 25-82-4374ZLOFF Pre-Screening *NEGATIVE*Zach Dillanart: 09-05-4301Ofloubu cessation educationSternestina [facility] Centerart: 83-33-3300Trvmeakbm, screeningAie Janettrt: 02-10-2015 End: 79-31-2334MIOG EXAM PERFORMEDStshirley GrimaldoWoodson: 02-10-2015 End: 92-41-3234Wlhd bld gluc mntr dev cleared fda spec home useSjeane Grimaldo Start: 02-10-2015 End: 76-33-5762Akfinxqgdb glycosylated f2bJdjlxf art: 02-10-2015 End: 00-74-2316UIQ SCREENING *in-house*Zach GrimaldoStart: 02-10-2015 End: 73-45-5321Uwmsw albumin semiquantitativeSternestina art: 02-10-2015 End: 46-71-5569Jvyeo dip stick/tablet rgnt non-auto w/o micrscpStenathalie Grimaldo History of placement of stent for coronary artery diseaseH/O heart artery stent DO Carlo Grimaldo Work Phone: NEGATED: Highlighted row has not occurred!Start: 25-90-5920pz recent change in medical historyAijuanito RedmanGATED: Highlighted row has not occurred!Start: 00-24-5322rycumbsr a history of cancerVahid Nagy NEGATED: Highlighted row has not occurred!Start: 37-82-3775pwfflywj physical traumaAimee Angelita Plan of Treatment DateCare ActivityDetailAuthorStart: 12-30-9004Rblertmts for malignant neoplasm of colonSouthampton Memorial Hospital: 38-05-2624KEtW,Tdap and Td Vaccines (3 - Td or Tdap)DTaP,Tdap and Td Vaccines (3 - Td or Tdap)[facility] Start: 98-07-2351KDnX/Tdap/Td vaccine (3 - Td or Tdap)DTaP/Tdap/Td vaccine (3 - Td or Tdap)[facility]: 09-96-2184ZEJCI-19 Vaccine (#1)COVID- 19 Vaccine (#1)[facility] on above:Postponed from 03/01/1961 (Patient Refused)Start: 07-24-6032GSfN/Tdap/Td vaccine (2 - Td or Tdap)DTaP/Tdap/Td vaccine (2 - Td or Tdap)[facility]: 01-07-2027 DTaP/Tdap/Td vaccine (2 - Td)DTaP/Tdap/Td vaccine (2 - Td)[place] Start: 84-70-8300Knvrmwo vaccinationAIDAN SolorzanoMagruder Hospitaltart: 16-21-9380Qrfkskx ScreeningTobacco ScreeningCone Health Women's Hospitaltart: 99-21-5241Ybdyz BMI ScreeningAdult BMI ScreeningCone Health Women's Hospitaltart: 05-46-3217AEN test (Diabetes, CKD 3-4, OR last GFR 15-59)GFR test (Diabetes, CKD 3-4, OR last GFR 15-59)[facility]: 57-89-1593Hhdtcuhxrs A1c lisxdcrshysJ2Y test (Diabetic or Prediabetic)[facility]: 50-60-3606KZO test (Diabetes, CKD 3-4, OR last GFR 15-59)GFR test (Diabetes, CKD 3-4, OR last GFR 15-59)[facility]: 38-23-5660SFM test (Diabetes, CKD 3-4, OR last GFR 15-59)GFR test (Diabetes, CKD 3-4, OR last GFR 15-59)[facility]: 37-70-2212Vazhsebf foot examinationDiabetic foot examBon [facility]: 92-36-1812Fmeeanxdhs A1c trmlaojpcaqV2G test (Diabetic or Prediabetic)[facility] Centerart: 99-21-8401Bygmjyfyy for malignant neoplasm of lungLung Cancer Screening &/or CounselingBon [facility] Centerart: 26-55-3373Vqtno BMI ScreeningAdult BMI ScreeningCone Health Women's Hospitaltart: 41-33-5941Vatrwrp ScreeningTobacco ScreeningCone Health Women's Hospitaltart: 96-90-0497Yikcu BMI ScreeningAdult BMI ScreeningCone Health Women's Hospitaltart: 15-21-5507Czppqoy ScreeningTobacco ScreeningLakeHealth Beachwood Medical Center Start: 36-44-4371Mrusqtzkoc MonitoringDepression MonitoringBon [facility] Centerart: 16-18-8577Yhasiledac ScreeningDepression ScreeningGuernsey Memorial Hospital SystemStart: 25-95-7972Cprrxdp ScreeningTobacco ScreeningGuernsey Memorial Hospital System Start: 62-07-0982Ehbgk BMI ScreeningAdult BMI ScreeningLakeHealth Beachwood Medical Center Start: 21-85-1337Xjbgg cancer screen colonoscopyColon cancer screen colonoscopy [facility], [place]Start: 80-04-9873Oncumvgbu for malignant neoplasm of colon [facility] HospitalStart: 70-67-6872Oqqov BMI ScreeningAdult BMI ScreeningGuernsey Memorial Hospital SystemStart: 16-12-8668Udlbj BMI ScreeningAdult BMI ScreeningGuernsey Memorial Hospital SystemStart: 73-30-1014Hbrvqsk ScreeningTobacco ScreeningGuernsey Memorial Hospital SystemStart: 01-14-2025 End: 67-55-1331Mnfxtyl encounter ogqwmorqw40/16/2025 1:45 PM EDT Office Visit [facility] [address] [place] [address] Zach aSravia DPM [address] [place] [address] ArrivedNOMS Dhillon PodiatryComment on above:ArrivedStart: 43-93-8273Mwmwz BMI ScreeningAdult BMI ScreeningCone Health Women's Hospitaltart: 24-43-4492Vbqclok ScreeningTobacco ScreeningCone Health Women's Hospitaltart: 12-22-2024 End: 31-26-2655Hheflwlsi mufpvaxjx40/23/2025 2:00 PM EDT Scheduled Telephone Encounter [facility] [address] [place] [address] [address] [place] [address] Osmar Rodriguez MD [address] [place], [place] [id number] TELEPHONE VISIT f/u [facility] CenterComment on above:TELEPHONE VISIT f/u [facility] hospitalStart: 95-57-8414Jrslaefcw vaccinationInfluenza Vaccine [facility] SystemStart: 67-92-0943CTO test (Diabetes, CKD 3-4, OR last GFR 15-59)GFR test (Diabetes, CKD 3-4, OR last GFR 15-59)[facility] Start: 51-74-2561Kkmijiohzt A1c gydogfyudoxV0K test (Diabetic or Prediabetic)[facility] SYSTEMStart: 64-64-4105Btncg panelLipidsBON VETERANS [facility] Start: 38-93-2519Thqajlaxw vaccinationBon [facility] HospitalStart: 10-14-2024 End: 87-31-7896Zjyghxj encounter fmqykuipl23/16/2025 1:45 PM EDT Office Visit [facility]ASC[facility] Part [address] [place] [address] Gordo Colmenares MD [address] [place] [address] [address] [place] [address] F/U from 08/19/2024[facility]Comment on above: F/U from 08/19/2024Start: 10-07-2024 End: 23-30-0959Gqrqmyl encounter /09/2025 1:45 PM EDT Office Visit [facility] [address] [place] [address] [address] [place], [place] [id number] Osmar Rodriguez MD [address] [place] [address] [address] [place] [address] F/u med managementSt. Elizabeth Hospital Primary CareComment on above:F/u med managementStart: 08-30-2024 Fall Risk ScreeningFall Risk ScreeningProSycamore Medical Center SystemStart: 08-30-2024 Pneumococcal 0-64 years Vaccine (2 of 2 - PPSV23)Pneumococcal 0-64 years Vaccine (2 of 2 - PPSV23)[facility] HospitalStart: 59-69-4151Preiayprwygs 0-64 years Vaccine (3 - PPSV23 if available, else PCV20)Pneumococcal 0-64 years Vaccine (3 - PPSV23 if available, else PCV20)[facility] SYSTEMStart: 12-93-9509Yhiebqcmdcxl 0-64 years Vaccine (3 - PPSV23 or PCV20)Pneumococcal 0-64 years Vaccine (3 - PPSV23 or PCV20)[facility] SYSTEMStart: 72-78-4126Jrzsqjerywmz 0-64 years Vaccine (3 of 3 - PPSV23 or PCV20)Pneumococcal 0-64 years Vaccine (3 of 3 - PPSV23 or PCV20)[facility] SYSTEMStart: 14-21-3616DDLJOEPYTUGL VACCINE SERIES (3 - PPSV23 if available, else PCV20)PNEUMOCOCCAL VACCINE SERIES (3 - PPSV23 if available, else PCV20)[facility]ertart: 08-24-2024 End: 06-70-6619Vroqq metabolic 2000 panel - Serum or PlasmaBasic Metabolic Panel Lab Routine Open wound of foot excluding toes Expected: 08/24/2024, Expires: 0 08/17/2025on [facility] on above:Expected: 08/24/2024, Expires: 08/17/2025Start: 08-24-2024 End: 28-73-0995EIK W Auto Differential panel - BloodCBC with Auto Differential Lab Routine Open wound of foot excluding toes Expected: 08/24/2024, Expires: 08/17/2025on [facility] on above:Expected: 08/24/2024, Expires: 08/17/2025Start: 08-19-2024 End: 30-73-9269Tjyuxhu encounter vfvjolapn71/21/2025 12:45 PM EDT Office Visit [address] [place] [address] Gordo Colmenares MD [address] [place] [address] [address] [place] [address] hosp. stay, [facility], [facility] Comment on above:hosp. stay, Claudications PVD, PADStart: 08-13-2024 End: 85-32-5578Fcquoro encounter antqaqleg61/15/2025 9:30 AM EDT Office Visit [facility] [address] [place] [address] [address] [place] [address] Osmar Rodriguez MD [address] [place] [address] [address] [place] [address] [facility] CareStart: 08-07-2024 End: 25-10-6121Batjffqq Liqfgnn7608/07/2024 10:30 AM EDT Clinical Support [facility] - [facility] Medication Management [address] [place] [address] OvuQvhddu [facility] - Pharmacy Medication ManagementStart: 07-24-2024 End: 34-26-2394Hgcmggx encounter zgyomyzhm20/25/2025 8:40 AM EDT Office Visit [facility] [address] [place] [address] Marquita Beard, ELECTRIC BLANKET WIRER-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 [address] [place] [address] [facility] ClinicStart: 04-27-2024 End: 75-93-7225Fyddlji encounter trehehaff49/27/2025 2:00 PM EST Office Visit [facility] [address] [place] [address] Rebeca Johnson MD [address] [place] [address] [facility] VascularStart: 96-49-8728Uytqnheivzot 50+ years Vaccine (3 of 3 - PCV20 or PCV21)Pneumococcal 50+ years Vaccine (3 of 3 - PCV20 or PCV21)[facility] CenterStart: 04-18-2024 End: 34-53-6964Fonlpptqi to same day surgery wcfaqh2704/18/2024 10:00 AM EST - 04/18/2024 11:38 AM EST Surgery [facility] - Special Procedures [address] [place] [phone] Rebeca Johnson MD [address] [place] [address] LYSIS RECHECK EXTREMITY LOWERWayne Hospitalca [facility] - Special ProceduresComment on above:LYSIS RECHECK EXTREMITY LOWERStart: 04-18-2024 End: 20-54-1645OABMNXQWG EXTREMITY LOWERANGIOGRAM EXTREMITY LOWER LLE LIMB ISCHEMIA 04/18/2024 10:00 AM ESTBarberton Citizens Hospital Health SystemStart: 04-18-2024 Subsequent hospital visit by wqsbawblh96/18/2025 10:00 AM EST Hospital Encounter [facility] Special Procedures [address] [place] [address] Rebeca Johnson MD [address] [facility] [place], [place] [facility] Special ProceduresStart: 79-74-5168Dpboxioxwj MonitoringDepression MonitoringFAUQUIER HEALTH SYSTEMStart: 17-52-7729EahxcihhbMarion Hospitaltart: 32-41-8556Aoumdgmw to vascular surgeonMarion Hospitaltart: 96-72-8155Qzjvatnpakrvv metabolic 2000 panel - Serum or PlasmaMarion Hospitaltart: 74-52-3107SfuoqtkxzMarion Hospitaltart: 53-98-5188WpshqkezuMarion Hospitaltart: 15-32-1909Noepqpis to general surgeonKindred Hospital Lima CenterStart: 15-45-0021SwvutpnzzqouQxhucfyuaMarion Hospitaltart: 39-07-5295Agsbgghv to cardiologistKindred Hospital Lima CenterStart: 87-39-6549Uzfsborr admissionMarion Hospitaltart: 01-17-2024 End: 86-59-9476Ggxttiykxxtdatyvukifkoapxm transoral diagnostic ESOPHAGOGASTRODUODENOSCOPY DIAGNOSTIC Upper GI bleed 01/17/2024 1:47 PM EDT [facility] ENDOSCOPYStart: 21-50-1316NHSEU-19 Vaccine ( season)COVID-19 Vaccine ( season)[facility] HospitalStart: 72-02-7313Hleghsjnl vaccinationInfluenza VaccineProLakeHealth Beachwood Medical Centertart: 11-22-2023 End: 34-13-6108Ipawjvl encounter pvvelmeji09/23/2024 2:45 PM EDT Office Visit [facility] [address] [place] [address] [address] [place] [address] Osmar Rodriguez MD [address] [place], [place] [id number] 1 month FU/Mammogram OverdueSt. Elizabeth [facility] Primary CareComment on above:1 month FU/Mammogram Overdue Start: 11-20-2023 End: 31-85-0681Jmghrfa encounter qajwsjnjo19/21/2024 1:30 PM EDT Office Visit [facility] Part [facility] [address] [place], [place] [id number] Gwendolyn Garces MD [facility] [address] [phone] Chronic obstructive pulmonary disease, unspecified COPD type (HCC)[facility] HospitalComment on above:Chronic obstructive pulmonary disease, unspecified COPD type (HCC)Start: 57-90-1000Mqmgyuzyv vaccinationFlu vaccine (#1)[facility]: 02-12-7252Meupcjqxjm ScreeningDepression ScreeningCone Health Women's Hospitaltart: 55-48-2778VKE test (Diabetes, CKD 3-4, OR last GFR 15-59)GFR test (Diabetes, CKD 3-4, OR last GFR 15-59)[facility]: 73-39-2521TLR test (Diabetes, CKD 3-4, OR last GFR 15-59)GFR test (Diabetes, CKD 3-4, OR last GFR 15-59)[facility]: 07-27-2023 Hemoglobin A1c mzxixsiiwhvK3A test (Diabetic or Prediabetic)BON [facility]: 27-93-9869Chzzy panelLipidsBON [facility]: 16-77-0455Wufih screening for proteinBON [facility]: 04-09-2023 Depression MonitoringDepression MonitoringBON [facility]art: 71-58-6615Kwhsnedhz vaccinationFlu vaccine (Season Ended)BON [facility] on above:Postponed from 10/30/2022 (Patient Refused)Start: 29-19-0292Zpgziwgq vaccine (1 of 2)Shingles vaccine (1 of 2)BON [facility] Systemment on above:Postponed from 08/30/2009 (Patient Refused)Start: 00-99-2061VJX test (Diabetes, CKD 3-4, OR last GFR 15-59)GFR test (Diabetes, CKD 3-4, OR last GFR 15-59)BON [facility]: 78-74-7344UZDAQ-19 Vaccine ( season)COVID-19 Vaccine ( season)[facility]ON [facility]: 09-06-2022 End: 60-82-0813Zrnemxb encounter pacsfgwxy49/08/2023 Office Visit Primary Care Osmar Rodriguez MD [address] [place] [address] [facility] CareStart: 77-27-2968Ljgcq panelLipidsBON [facility]: 84-84-5256Wjzlogygjy A1c uwdhsluiojrA1B test (Diabetic or Prediabetic)[facility] 08-07-2022 End: 90-13-1025Fgwedcu encounter wpoaocnwm97/09/2023 Office Visit Primary Care Osmar Rodriguez MD [address] [place] [address] [facility] Primary CareStart: 08-01-2022 End: 80-79-8153Iuzyych encounter tloyzjovn30/03/2023 Office Visit Cardiology Nydia Barton PA-C [address] [place] [address] [facility] 07-24-2022 End: 00-65-1140Kwrwmlw encounter ecvyuzpvt43/25/2023 Office Visit Cardiology Nydia Barton PA-C [address] [id number] [facility]: 72-31-1712Tdxdpcfvp monitoringPotassium monitoringWilson Street HospitalStart: 06-08-2022 End: 56-49-8936Nfxsjroxerzy consultation with uwgnnzx5206/08/2022 Telemedicine General Surgery Corrine Chery, ELECTRIC BLANKET WIRER-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 [address] [place], [place] General and Gastrointestinal Surgery [facility]: 94-46-4763Zapeigzybg measurementCreatinine monitoringWilson [address] [facility] Start: 41-49-7673Klzxltp stimulating hormone measurementTSH testingWilson Street Hospital Start: 77-88-0698Yqoaiepvui A1c xwauoifkntnY3T test (Diabetic or Prediabetic) [facility] Systemart: 82-29-5177Rukjd screening for proteinWilson Street HospitalStart: 14-97-1340Zkjdgxjlbi measurementCreatinine monitoringWilson [address] HospitalStart: 31-03-1865Jpkuwlxrf monitoringPotassium monitoringWilson [address] HospitalStart: 04-06-[address]Dep[address] HospitalStart: 36-69-3267Fecfuoar foot examinationDiabetic foot examWilson Street HospitalStart: 00-00-6884Ubzgysdvlr measurementCreatinine monitoringWilson [address] HospitalStart: 48-78-4287Odjnwtwez monitoringPotassium monitoringWilson Street HospitalStart: 74-94-4886ZTBLB-19 Vaccine (#1) COVID-19 Vaccine (#1)BON atHomestars [facility] HOSPITALComment on above:Postponed from 03/01/1960 (Patient Refused)Start: 24-88-3830Kthafxje vaccine (1 of 2)Shingles vaccine (1 of 2)BON SECPromon [facility]ATION HOSPITALComment on above:Postponed from 08/30/2009 (Patient Does Not Have Time)Start: 77-89-1140Keulovjvqh measurement Creatinine monitoringWilson [address] HospitalStart: 50-45-3012Fixmxwzxj monitoringPotassium monitoringMercy HealthStart: 01-23-2022 End: 37-83-5565Alkrari encounter irbeloqeo07/25/2022 Office Visit Primary Care Osmar Rodriguez MD [address] [place] [address] [facility] Primary CareStart: 71-74-3117Bjrksyktiv measurementCreatinine monitoringMercy Health Work Phone: start: 93-15-2642Bsouffwtj monitoringPotassium monitoringMercy Health Work Phone: start: 56-07-0733Ppebgavuze measurementCreatinine monitoringMercy Health Work Phone: start: 41-10-3700Mfovrdoyk monitoringPotassium monitoringMercy Health Work Phone: start: 94-28-1370Ftpeuyjiec measurementCreatinine monitoringMercy Health Work Phone: start: 35-15-2648Fwdieccrm monitoringPotassium monitoringMercy Health Work Phone: start: 05-85-3089Qpqgqpyni vaccinationAdena Fayette Medical Centertart: 91-38-8149Kjzpofjjj vaccinationFlu vaccine (#1)[facility]ITALStart: 10-24-2021 End: 61-00-7090Avsgnjt encounter qqvtvdykp82/26/2022 Office Visit Cardiology Josef Brooks MD [address] [place] [id number] [facility] 05-16-2021 End: 34-60-6088Tehqgdz encounter kkffseozf72/15/2022 Office Visit Primary Care Osmar Rodriguez MD [address] [place] [address] [facility] Primary CareStart: 05-10-2021 End: 40-79-5141Tikcytl encounter eylbxeevs82/09/2022 [facility]ment [facility] MammographyStart: 05-02-2021 End: 51-45-1568Klnqvgl encounter mbricvope96/01/2022 Office Visit General Surgery Carlo Bridges MD [address] [place] [address] [facility] GENERAL SURGERY [facility]: 04-24-2021 End: 59-97-2300Wgexjwm encounter adgaepmtg13/24/2022 Office Visit Primary Care Osmar Rodriguez MD [address] [facility] [place] [address] [facility] Primary CareStart: 19-02-6686Aqmiwvxowx A1c mlxkpcnrupwW5S test (Diabetic or Prediabetic)[facility] HospitalStart: 61-08-6815Klbsbkojfr measurementCreatinine monitoringMercy Health- [place], [place]Start: 23-14-8570Iioucshkz monitoringPotassium monitoringMercy Health- [place], [place]Start: 80-35-7010Vsdirqcnga measurementCreatinine monitoringMercy Health- [place], [place]Start: 51-57-4377Egflqkxsp monitoringPotassium monitoringMercy Health- [place], [place] Start: 96-23-1916Wowhoslrcj measurementCreatinine monitoringMercy Health- [place], [place] Start: 94-24-6675Bfroh panelMercy HealthStart: 70-99-6721Xghpdwqjl monitoring Potassium monitoringMercy Health- [place], [place]Start: 61-36-4337Plawgmzxtj measurement Creatinine monitoringMercy Health- [place], [place]Start: 81-44-4596Jdchc panelLipid screenMer Health- [place], [place]Start: 11-41-8390Grktbtbxo monitoringPotassium monitoringMercy Health- [place], [place]Start: 06-33-7264Akekagu stimulating hormone measurementTSH testingPike Community Hospitalcy HealthStart: 36-46-3638WED QnTSH testingMercy Health [facility] Health- [place], [place]Start: 33-86-4933Byfhufvsp vaccinationFlu vaccine (#1)[facility] Start: 90-54-1276Toicaiurkq measurementCreatinine monitoringMercy Health- [place], [place] Start: 58-96-6536Fsfpkiyqj monitoringPotassium monitoringW[facility] [place], [place] Start: 01-30-4470Dowginjwem measurementCreatinine monitoringWexner Medical Center [place], [place] Start: 14-08-1343Ilfsjaape monitoringPotassium monitoringWexner Medical Center [place], [place] Start: 10-88-7069Sifsxogoqs measurementCreatinine monitoringWexner Medical Center [place], [place] Start: 60-66-1845Cipoeizyy monitoringPotassium monitoringCommunity [facility], [place] Start: 31-19-0408Fnajaizevt measurementCreatinine monitoringWexner Medical Center [place], [place] Start: 74-90-2168Rygusfxnd monitoringPotassium monitoringCommunity [facility], [place] Start: 01-32-0318QbX3o (Bld) [Mass fraction]A1C test (Diabetic or Prediabetic) [facility], KYStart: 55-11-0638Mjxtnscylg A1c eatwbejjvwcH6C test (Diabetic or Prediabetic)[facility] HospitalStart: 97-30-9009Ptcriudhkx measurement Creatinine [facility], KYStart: 47-75-9272Melmxgjjm monitoring Potassium [facility], KYStart: 45-98-0093KJU QnTSH testingCommunity Regional Medical Center, KYStart: 59-83-3237Eyuybyhom for malignant neoplasm of lungLow dose CT lung screeningWilson Street HospitalStart: 40-11-8238Ojwiuwxeez monitoringCreatinine monitoringWilson [facility] Work Phone: start: 00-99-9280Aeipfdsyq monitoringPotassium monitoringWilson [facility] Work Phone: start: 50-03-1256Paw dose CT lung screeningLow dose CT lung screeningCommunity Regional Medical Center, KYStart: 10-97-3590Dwkpxlzvb for malignant neoplasm of lungLung Cancer Screening &/or CounselingFAUQUIER HEALTH SYSTEM Start: 03-15-2020 End: 54-30-6655Tytoml [facility] and HypertensionStart: 16-06-2946KnrgbjjjoniHsxtzkrad - Screening (79043)[facility] Work Phone: Start: 02-24-2020 End: 44-54-5438Wspegmibdei49/25/2020 Appointment IP UnitMTHZ CATH LABStart: 54-99-8631Iqxps [address] [place] [address] Work Phone: Start: 02-01-2020 End: 75-12-4695Gkhesw Visit02/01/2020 Office Visit Cardiology Josef Brooks MD [address] [place] [address] [facility] CARDIOLOGY [facility]tart: 22-08-6339UeqtvtojebAdena Health System Work Phone: Comment on above:Note: Please make a referral to: Start: 50-93-1625Cvixsqwcq vaccinationFlu vaccine (#1)[place], [place]Start: 11-23-2019 End: 16-14-2058Bewzxu Visit11/23/2019 Office Visit Cardiology Josef Brooks MD [address] [place] [address] [place] [address] [facility] CARDIOLOGY [facility]: 04-06-9251Ctsootfwebfb consultation with [facility] Work Phone: Comment on above:Note: Please make a referral to: Start: 10-26-2019 End: 18-28-1844Wdzrsa Visit10/26/2019 Office Visit Pulmonology Favian Alvarez MD [address] [address] [facility] OUTREACH PULM [facility] [place] [facility]Start: 10-12-2019 End: 30-51-7177Apiduu Visit10/12/2019 Office Visit Cardiology Josef Brooks MD [address] [place] [address] [facility] CARDIOLOGY Part of [place] HospitalStart: 10-01-2019 End: 71-22-5592Tiqmfudikao27/02/2020 Appointment IP UnitMTHZ CATH LABStart: 09-29-2019 End: 21-12-9819Opesht Visit09/29/2019 Office Visit Cardiology Josef Brooks MD [address] [place] [address] [facility] CARDIOLOGY Part of [place] HospitalStart: 09-28-2019 End: 93-97-1173Yukmpibnuiu91/29/2020 Appointment LabMTHZ Covid ScreeningStart: 73-24-4933Dfuochp Established PatientMercy Hospital Work Phone: Start: 09-24-2019 End: 63-04-1037Lzmgbdyifmc31/25/2020 Appointment IP UnitMTHZ CATH LABStart: 47-23-1985Tnxcuprj Medicine & RehabHealth [facility] Work Phone: Comment on above:Note: Please make a referral to: [facility] companyoStart: 09-21-2019 End: 89-93-0725Tgdhkg Visit09/21/2019 Office Visit Pulmonology Favian Alvarez MD [address] [address] [phone] [facility] OUTREACH PULM [facility]: 09-18-2019 End: 36-45-2265Lregzt Visit09/18/2019 Office Visit Cardiology Josef Brooks MD [address] [place] [address] [facility] CARDIOLOGY Part of [place] HospitalStart: 09-17-2019 End: 67-20-1557Eecekulfrus33/18/2020 Appointment Stress LabMTHZ Stress LabStart: 35-94-4554HmxmwevvybhyBezbviSmith County Memorial Hospital Work Phone: Start: 09-10-2019 End: 41-20-8562Qqigcl VisitBLANCHARD [facility] OUTREACH PULM Part of [place] HospitalStart: 09-09-2019 End: 65-15-8282Oghgeswvmzb84/10/2020 Appointment Stress LabMTHZ Stress LabStart: 41-84-1678Zhdwcydtozu Syncytial Virus (RSV) or age 60 yrs+ (1 - 1-dose 60+ series)Respiratory Syncytial Virus (RSV) or age 60 yrs+ (1 - 1-dose 60+ series)[facility] SYSTEMStart: 02-08-5716Ncdmwaluakx Syncytial Virus (RSV) or age 60 yrs+ (1 - Risk 60-74 years 1-dose series)Respiratory Syncytial Virus (RSV) or age 60 yrs+ (1 - Risk 60-74 years 1-dose series)Bon [facility] HospitalStart: 27-42-9828Mvdyztwbm for malignant neoplasm of colonFIT/FOBT: Average [facility]Start: 08-03-2019 End: 86-36-5493Dyjkxk Visit08/03/2019 Office Visit Cardiology Josef Brooks MD [address] [place] [address] [facility] CARDIOLOGYStart: 07-06-2019 End: 04-55-8115Liujnw Visit07/06/2019 Office Visit Pulmonology Martin Alvarez MD [address] [id number] [facility] OUTREACH PULMStart: 06-23-2019 End: 86-36-3914SiyrufniqbfGvfqu Health [place] CT ScanStart: 06-09-2019 End: 15-80-1381Awtfau Visit06/09/2019 Office Visit Cardiology Josef Brooks MD [address] [place] [address] [facility] CARDIOLOGYStart: 38-69-2399IQ Chest PA & LAT (92846)[facility] Work Phone: start: 05-13-2019 End: 70-30-7376Fsnkahr encounter deirrzayy69/12/2020 Appointment [facility] MammographyStart: 04-28-2019 End: 08-09-2759Pbvkdvt encounter npxdgzzow53/28/2020 Office Visit Cardiology Josef Brooks MD [address] [place] [address] [facility] CARDIOLOGYStart: 04-19-2019 MammographyMammogram - Screening ([address])[facility] Work Phone: start: 48-79-9596Gprkp 1996 panelLipid ProfileCardinal Cushing Hospital Work Phone: Start: 88-88-7738Bhkvn Drugs of Abuse Screen (DANIEL) [facility] Work Phone: Start: 35-58-2314Ircjvpl Established [facility] Work Phone: Start: 03-12-2019 End: 24-09-7725Njiodgxywja04/12/2019 Appointment [facility] LabCosho[facility] Vascular LabStart: 61-81-2244Tzkpr panelLipid screenCommunity Regional Medical Center, KYStart: 30-94-2704Ivauc screenLipid screenCommunity Regional Medical Center, KYStart: 50-56-3780KY Shoulder 2 Views (19993)[facility] Work Phone: start: 01-15-2019 End: 38-84-7330Sjidg metabolic 2000 panelBasic Metabolic Panel Lab Routine Hyponatremia Expected: 01/15/2019, Expires: 01/14/2020[facility], [place] Comment on above:Expected: 01/15/2019, Expires: 01/14/2020Start: 01-14-2019 OrthopedicsHealth [facility] Work Phone: comment on above:Note: Please make a referral to: Start: 24-74-9246Uyuunrg StockCardinal [facility] Work Phone: Start: 25-23-5621Pqnzxljw TherapyCardinal [facility] Hospital Work Phone: comomfa on above:Note: Please make a referral to: Start: 59-11-5199Euvkoypwo to same day surgery centerGeneral SurgeryCardinal [facility] Hospital Work Phone: comment on above:Note: Please make a referral to: Dr Avila: 59-57-5419Djosapy Established [facility] Work Phone: Start: 10-30-2018 End: 36-63-8678IvpnozhwlksIxdnliCardinal Cushing Hospital Work Phone: comment on above:Note: Please make a referral to: Start: 09-30-2018 End: 75-81-1767Sxukvovsjbokl metabolic 2000 panelComprehensive Metabolic Panel (CP)Health [facility] Work Phone: Start: 09-30-2018 End: 52-39-9565Qcqn T4 [Mass/Vol]T4 Free (FT4)[facility] Work Phone: start: 09-30-2018 End: 77-92-0589Fvfuk panelLipid Panel (LIPR)[facility] Work Phone: start: 09-30-2018 End: 53-73-0183FujpkiaicrxGnnbgoCardinal [facility] Hospital Work Phone: Start: 09-30-2018 End: 15-30-9488EWJ QnTCarondelet St. [facility] Work Phone: start: 67-61-0312QTJ W Auto Differential panel - Blood CBC with diff (CDP)[facility] HospitalStart: 20-83-9505Frhmcwrbgxfwt metabolic 2000 panelComprehensive Metabolic Panel (CP)[facility] Work Phone: start: 96-29-4996Ciuh T4 [Mass/Vol]T4 Free (FT4)[facility] Work Phone: Start: 67-91-7455Xqomd panelLipid Panel (LIPR)[facility] Work Phone: Start: 61-21-3351ZrkpwcchxnoXifshjCardinal Cushing Hospital Work Phone: start: 18-82-4036EPK QnTCarondelet St. [facility] Work Phone: start: 42-63-1526Htvdyernaghy 0-64 years Vaccine (1 of 1 - PPSV23)Pneumococcal 0-64 years Vaccine (1 of 1 - PPSV23)[facility]- [place], [place]Start: 32-27-7617LXWO visit, estab ptEstablished PatientMercy Hospital Work Phone: Start: 07-40-9784SSZU visit, estab ptEstablished PatientMercy Hospital Work Phone: Start: 77-41-3552Yxagymwbys radiography of chest, combined PA and lateralChest xray, PA & lateralHealth [facility] start: 41-47-9960Ukofgui bacterial quanttative colony count urineUA + reflex cultureHealth [facility] start: 02-56-8933Cgzgvqkorr qual/semiquant except immunoassaysUA + reflex cultureHealth [facility] start: 42-71-0423Sbrfoprb foot examinationDiabetic foot examMer HealthStart: 54-26-0958Dvf bact xcpt urine blood/stool aerobic isol Wound culture and sensitivityHealth [facility] start: 36-52-0106Pgyysignmjq antibodies anaANA screen [facility] start: 87-72-3275Uifro of free thyroxineTSH + free t4 [facility] start: 52-88-9401Lkbyk of thyroid stimulating hormone tshTSH + free i2Vdqath [facility] start: 99-47-5770Rasmv count complete auto&auto difrntl wbcCBC W/DiffHealth [facility] Start: 08-06-2017C reactive protein (CRP)CRPHealth [facility] Start: 17-14-8497Wpgqwfvvirqrz metabolic panelCMPHealKettering Health Behavioral Medical Center start: 98-39-3060Yztg energy X-ray photon absorptiometryDEXA scan for body composition studyHealth [facility] Start: 38-60-5268Vovpkxqgruw sedimentation rateESR [facility] start: 77-04-5389Ermubgaemez analyte qual/semiqual multiple stepRheumatoid factor antibody panel (IgG, IgM, IgA)[facility] start: 59-43-4440Onkzg panelLipid Panel (Chol, HDL, LDL, Trig., VLDL)[facility] start: 35-39-0114Ywtdzuxmus factor quantitative Rheumatoid factor antibody panel (IgG, IgM, IgA)[facility] start: 45-97-9907OltcrjCardinal [facility]ushing Hospital start: 58-02-0960Oephnqlta for malignant neoplasm of breastBreast cancer screenWilson Street HospitalStart: 35-40-8062Zesocmong mammography, bilateral (2-view study of each breast),[facility] start: 74-72-3274Vxzfynrwl for osteoporosisDEXA (modify frequency per FRAX score)Bon [facility]: 41-99-2814K6E test (Diabetic or Prediabetic)A1C test (Diabetic or Prediabetic)[place] Start: 15-53-7933MzX1d (Bld) [Mass fraction]A1C test (Diabetic or Prediabetic) [place], [place]Start: 53-15-3583XQQ testingTSH testingBism[place], [place] Start: 45-02-5064Shhuckfirlleff of varicella zoster vaccineZoster (Shingles) Vaccine (1 of 2)[facility] [employer] SystemStart: 58-26-8504Njtlrq cancer screen Breast cancer screenBism[place], KYStart: 79-32-9278Lpgyjkjrz for malignant neoplasm of breastBreast cancer screenBON [facility]view [facility] Instituteart: 08-30-2009 Screening for malignant neoplasm of lungLow dose CT lung screeningBON [facility]art: 84-94-3421Roqgebzv Vaccine (1 of 2)Shingles Vaccine (1 of [address] HospitalStart: 47-44-3081Nwmsvx vaccine hzv live for subcutaneous useZOSTER (SHINGLES) VACCINE (1 of 2)[facility] CenterStart: 07-38-5021Uengnjjtcag COLORECTAL CANCER SCREENING DISCUSSIONOSSt. Rita's Hospitaltart: 08-30-2004 Screening for malignant neoplasm of colonWilson Street HospitalStart: 80-82-8788Kzhrvkd lipid profileLIPID SCREENINGOSSt. Rita's Hospitaltart: 55-15-4460Wenlv panelLIPID SCREENINGOSAultman Alliance Community Hospital CenterStart: 43-58-3170Sidjxtzen for malignant neoplasm of breastOSAultman Alliance Community Hospital CenterStart: 20-30-1085Pghoiipdm mammographyMAMMOGRAM SCREENING DISCUSSIONOSAultman Alliance Community Hospital CenterStart: 09-65-8332Kzsliriip for malignant neoplasm of cervixBON [facility] Start: 12-55-8284Mmxtiqub cancer screenCervical cancer [facility]: 32-86-2035Ypzsrwjaf for malignant neoplasm of cervixOSAultman Alliance Community Hospital CenterStart: 03-58-6079Ilwcyxqxq B Vaccine (1 of 3 - Risk 3-dose series) Hepatitis B Vaccine (1 of 3 - Risk 3-dose series)[facility]: 21-18-8213Mcvgx diphtheria, tetanus and acellular pertussis (DTaP) vaccination TDAP (ADULT)[facility] Centertart: 43-93-2921Tlrgw BMI Follow Up Plan Adult BMI Follow Up PlanCone Health Women's Hospitaltart: 13-34-9698Chbdxtch foot examinationDiabetic Foot ExamProLakeHealth Beachwood Medical Centertart: 68-39-7642Szfhwdzn microalbuminuria testDiabetic microalbuminuria testWilson Street HospitalStart: 08-30-1977 Diabetic retinal examDiabetic retinal examWilson Street HospitalStart: 07-59-5804Cmaxvkrb screeningDiabetic retinal examBON [facility]MINISTRATIONStart: 18-73-9945Dcnnsuxio C screeningHepatitis C screenFAUQUIER HEALTH SYSTEMStart: 05-60-7965Agvdswm vaccinationTETANUSOSSt. Rita's Hospitaltart: 85-73-5021Xzjmx screening for proteinDiabetic microalbuminuria testWilson Street HospitalStart: 19-29-4547FDN screenHIV screenMercy Health West Hospitalart: 51-88-7849MHU screeningThe MetroHealth Systemart: 73-26-9146QQBYF-19 Vaccine (1)COVID-19 Vaccine (1)[address] HospitalStcenterbrook: 08-30-1970 [object Object]Diabetic foot examCommunity Regional Medical Center, KYStart: 53-59-2957Bkdhrxpl foot examinationDiabetic foot examCommunity Regional Medical Center, KYStart: 92-48-4547Opzpoiqv retinal examDiabetic retinal examWilson Street HospitalStart: 98-33-7310SHVVSHMSOFQK VACCINE SERIES (1 - PCV)PNEUMOCOCCAL VACCINE SERIES (1 - PCV)[facility] Centertart: 64-91-7840QTROF-19 Vaccine (1)COVID-19 Vaccine (1)[facility] Start: 98-08-3246LLJCZ-19 VACCINE (#1)COVID-19 VACCINE (#1)[facility] Centertart: 19-31-1975Hrxqazaz screeningDiabetic Ophthalmology ExamProSycamore Medical Center SystemStart: 10-24-3197Plbshgonb C antibody, confirmatory testHEPATITIS C VIRUS SCREENINGAdena Fayette Medical Centertart: 03-51-8482Avrwbrfwc C screen Hepatitis C screenCommunity Regional Medical Center, [facility] Hospitalart: 50-89-8467Gkuwnjypr C screening [facility]: 04-85-9637Chyuqtx stimulating hormone measurementTSMemorial Hospitaltart: 12-81-0550Vtojxhf CounselingTobacco Counseling [facility] Medical CenterAcapellaAcapella Respiratory Care Routine Every 1hr while awake until discontinued starting 03/17/2021[facility] RepRegen [facility] Phone: comment on above:Every 1hr while awake until discontinued starting 1AcapellaAcapella Respiratory Care Routine TID until discontinued starting 04/22/2019[facility] [employer] Phone: comment on above:TID until discontinued starting 04/22/2019AcapellaAcapella Respiratory Care Routine TID until discontinued starting 08/06/2024[facility] Hospitalment on above:TID until discontinued starting 08/06/2024asic metabolic 2000 panel - Serum or Plasma Basic Metabolic Panel Lab Routine Daily until discontinued starting 04/24/2019, 3 [employer] Work Phone: comment on above:Daily until discontinued starting 04/24/2019, 3 completedBasic Metabolic Panel w/ Reflex to MGBasic Metabolic Panel w/ Reflex to MG Lab Routine Every Other Day until discontinued starting 07/25/2019, 1 completedLeisureLogix, Culinary AgentsComment on above:Every Other Day until discontinued starting 07/25/2019, 1 completedBasic Metabolic Panel w/ Reflex to MGBasic Metabolic Panel w/ Reflex to MG Lab Routine Daily until discontinued starting 03/18/2021, 2 completedLe[employer] Work Phone: comment on above:Daily until discontinued starting 03/18/2021, 2 completed End: 57-71-1593Avcnm Metabolic Panel w/ Reflex to MGBasic Metabolic Panel w/ Reflex to MG Lab Routine Daily for 9 Days starting 08/07/2024 until 08/15/2024, 4 completedBon Secours Clermont County HospitalSensegComment on above:Daily for 9 Days starting 08/07/2024 until 08/15/2024, 4 completedBasophils [#/volume] in Blood by Automated [facility] CenterBasophils/100 leukocytes in Blood by Automated [facility] CenterBedside Glucose *Place/Obtain serum glucose if >500 per glucometer.Bedside Glucose *Place/Obtain serum glucose if >500 per glucometer. Point of Care Testing Routine 4X Daily (AC and at bedtime) until discontinued starting 12/30/2024, 6 completedProELARA Pharmaceuticals Health SystemComment on above:4X Daily (AC and at bedtime) until discontinued starting 12/30/2024, 6 completedBIPAInlet Technologies Work Phone: comment on above:Every 4hr until discontinued starting 07/22/2019Every 4hr until discontinued starting 04/22/2019 End: 61-03-2189Geezfqwgkpfjbzw and angiography procedure details panelDiagnostic Cardiac Brick Molder Hand Procedure Cardiac Cath Routine One Time for 1 Occurrences starting 03/17/2020 until 03/17/2020[facility] HospitalOpenEd, Culinary AgentsComment on above:One Time for 1 Occurrences starting 03/17/2020 until 03/17/2020CBC auto differential [employer] Work Phone: comment on above:Every Other Day until discontinued starting 07/24/2019, 1 completedDaily until discontinued starting 04/24/2019, 3 completedCBC W Auto Differential panel - BloodCBC Auto Differential Lab STAT Daily until discontinued starting 03/18/2021, 2 [facility] LabsPike [facility] HospitalJoyhound Work Phone: comment on above:Daily until discontinued starting 03/18/2021, 2 completed End: 64-93-7033JUC W Auto Differential panel - BloodCBC auto differential Lab Routine Daily for 9 Days starting 08/06/2024 until 08/14/2024, 5 [facility] Lezhin EntertainmentComment on above:Daily for 9 Days starting 08/06/2024 until 08/14/2024, 5 completedCBC W Auto Differential panel - BloodCBC auto differential Lab Routine Lab max of 3 days, Daily, for lab use only until discontinued starting 12/31/2024, 2 [facility] MichiganTherapeutic Monitoring Systems Inc. [facility] Gerber HospitalComment on above:Lab max of 3 days, Daily, for lab use only until discontinued starting 12/31/2024, 2 completedComprehensive metabolic 2000 panel - Serum or Plasma Comprehensive metabolic panel Lab Routine Lab max of 3 days, Daily, for lab use only until discontinued starting 12/31/2024, 2 [facility] MichiganTherapeutic Monitoring Systems Inc. System Comment on above:Lab max of 3 days, Daily, for lab use only until discontinued starting 12/31/2024, 2 completedCOVID-19[facility] [employer], [place] End: 28-51-1265BWGUT-19, PCRCOVID-19, PCR Lab Routine One Time for 1 Occurrences starting 03/13/2020 until 03/13/2020[facility] [employer] [place], [place] on [place]:One Time for 1 Occurrences starting 03/13/2020 until 03/13/2020CTA HEAD NECK W CONTRASTCTA HEAD NECK W CONTRAST Imaging STAT 04/12/2019 1:24 PM RABT Work Phone: End: 82-73-6508Wlesywa, Blood 1Culture, Blood 1 Microbiology STAT One Time for 1 Occurrences starting 10/06/2019 until 10/06/2019[facility] [employer] [place], [place]:One Time for 1 Occurrences starting 10/06/2019 until 10/06/2019Culture, Blood 1Culture, Blood 1 Microbiology STAT 10/06/2019 10:00 AM [facility], [place]Culture, Blood 1Culture, Blood 1 Microbiology STAT 03/17/2021 9:00 PM [facility] SystemSenseg Work Phone: culture, Blood 1Culture, Blood 1 Microbiology STAT 08/06/2024 3:15 PM [facility] End: 77-65-5278Kivzlyp, Blood 2Culture, Blood 2 Microbiology STAT One Time for 1 Occurrences starting 10/06/2019 until 10/06/2019[facility] on above:One Time for 1 Occurrences starting 10/06/2019 until 10/06/2019Culture, Blood 2Culture, Blood 2 Microbiology STAT 10/06/2019 12:40 PM [facility]Park[facility], KYCulture, Blood 2Culture, Blood 2 Microbiology STAT 08/06/2024 4:50 PM EDT [facility] RepRegen End: 55-73-7222Vsmdmhv, RespiratoryCulture, Respiratory Microbiology Routine One Time for 1 Occurrences starting 07/18/2019 until 07/18/2019[facility]CAR[facility] Comment on above:One Time for 1 Occurrences starting 07/18/2019 until 07/18/2019 End: 09-98-3131Pmolxcx, UrineCulture, Urine Microbiology Routine Once for 1 Occurrences starting 07/17/2019 until 07/17/2019[facility] Center[facility]a on above:Once for 1 Occurrences starting 07/17/2019 until 07/17/2019Culture, Urine [facility], [place] End: 26-38-0160Pscqydq, UrineCulture, Urine Microbiology Routine Once for 1 Occurrences starting 11/16/2019 until 11/16/2019[facility] CenterEl[facility]a on above:Once for 1 Occurrences starting 11/16/2019 until 11/16/2019 End: 65-06-9046Bvsfabx, UrineCulture, Urine Microbiology Routine Once for 1 Occurrences starting 02/12/2020 until 02/12/2020[facility] CenterEl[facility]a on above:Once for 1 Occurrences starting 02/12/2020 until 02/12/2020Culture, Wound (with Gram Stain)Culture, Wound (with Gram Stain) Microbiology Routine 09/03/2024 11:35 AM EDTBon Portable Zoo Work Phone: End: 53-08-2641Kvgw Screen, [email or web address] ([employer]) Work Phone: comment on above:1 Occurrences starting 08/13/2022 until 08/13/2022EKG 12 LeadLezhin Entertainment- [place], KYEKG 12 LeadEKG 12 Lead ECG STAT 02/09/2021 11:32 AM RABT Work Phone: eosinophils/100 leukocytes in Blood by Automated count [facility] Medical CenterErythrocyte distribution width [Ratio] by Automated [facility] CenterErythrocytes [#/volume] in Blood [facility] End: 19-89-8941XiveywsyixrrblwybjmxjoapuzZGL GI Routine Gastrointestinal hemorrhage, unspecified gastrointestinal hemorrhage type Gastric ulcer without hemorrhage or perforation, unspecified chronicity 1 Occurrences starting 01/14/2024 until 01/13/2025[facility] Work Phone: Comment on above:1 Occurrences starting 01/14/2024 until 01/13/2025 End: 79-19-2045KaR1s (Bld) [Mass fraction]Hemoglobin A1C Lab Routine Once for 1 Occurrences starting 07/24/2019 until 07/24/2019MerOpenEd, [place]Comment on [place]:Once for 1 Occurrences starting 07/24/2019 until 07/24/2019HbA1c (Bld) [Mass fraction]Hemoglobin A1C Lab Routine 07/24/2019 4:42 AM EDTMInlet Technologies- [employer], [place]Heated/ Humidified High Flow Nasal CannulaHeated/ Humidified High Flow Nasal Cannula Respiratory Care Routine Every 4hr until discontinued starting 07/17/2019, 1 completedMerOpenEd, [place]Comment on above:Every 4hr until discontinued starting 07/17/2019, 1 completedHematocrit [Volume Fraction] of [facility] HospitalHemoglobin [Mass/volume] in [facility] End: 86-52-1415Pzpurhoslc A1c/Hemoglobin.total in BloodBON [employer] Work Phone: comment on above:1 Occurrences starting 07/26/2022 until 07/26/2022HHN TreatmentHHN Treatment Respiratory Care Routine Daily until discontinued starting 07/18/2019[facility], KYComment on above:Daily until discontinued starting 07/18/2019Initiate Oxygen Therapy [facility] RepRegen Work Phone: comment on above:Daily until discontinued starting 07/18/2019Daily until discontinued starting 04/21/2019 End: 82-88-8617Awwwhzwt RT ProtocolInitiate RT Protocol Respiratory Care Routine Continuous until discontinued starting 07/22/2019[facility], KYComment on above:Continuous until discontinued starting 07/22/2019 End: 22-44-9670Mbkkswyibibz pulse oximetryPulse Oximetry Spot Check Respiratory Care Routine One Time for 1 Occurrences starting 03/17/2020 until 03/17/2020 [facility], KYComment on above:One Time for 1 Occurrences starting 03/17/2020 until 03/17/2020Leukocytes [#/volume] corrected for nucleated erythrocytes in Blood by Automated [facility] Leukocytes [#/volume] in BloodUniversity Hospitals St. [facility] Medical Center End: 14-44-5315Lutqg panel - fastingLipid panel - fasting Lab Routine Tomorrow AM for 1 Occurrences starting 03/18/2020 until 03/18/2020[facility] [place] Comment on above:Tomorrow AM for 1 Occurrences starting 03/18/2020 until 03/18/2020Lipid panel - fastingLipid panel - fasting Lab Routine 03/18/2020 5:20 AM [facility], CARLOSLymphocytes [#/volume] in Blood by Automated [facility] HospitalLymphocytes/100 leukocytes in Blood by Automated [facility] CenterMagnesium [Mass/volume] in Serum or PlasmaMagnesium Lab Routine Lab max of 3 days, Daily, for lab use only until discontinued starting 12/31/2024, 2 completedBarberton Citizens Hospital Health SystemComment on above:Lab max of 3 days, Daily, for lab use only until discontinued starting 12/31/2024, 2 completedMCH [Entitic mass] by Automated [facility] CenterMCHC [Mass/volume] by Automated [facility] CenterMCV [Entitic volume] by Automated [facility] End: 97-65-3607Wdswwwzmzuro / Creatinine Urine RatioMicroalbumin / Creatinine Urine Ratio Lab Routine Hyperglycemia 1 Occurrences starting 07/26/2022 until 3BON [employer] Work Phone: comment on above:1 Occurrences starting 07/26/2022 until 07/26/2022Monocytes [#/volume] in Blood by Automated [facility] CenterMonocytes/100 leukocytes in Blood by Automated [facility] End: 96-92-4559ZZPC DNA Probe, NasalMRSA DNA Probe, Nasal Microbiology Routine Daily for 2 Occurrences starting 04/25/2019 until 04/26/2019, 1 [employer] Work Phone: comment on above:Daily for 2 Occurrences starting 04/25/2019 until 04/26/2019, 1 completedNasal Cannula OxygenLezhin Entertainment- [place], [place] Comment on above:Daily until discontinued starting 06/15/2019, 2 completedDaily until discontinued starting 03/13/2020Daily until discontinued starting 03/18/2020Nasal Cannula OxygenNasal Cannula Oxygen Respiratory Care STAT Daily until discontinued starting 03/17/2021[employer] Work Phone: Comment on above:Daily until discontinued starting 03/17/2021Nasal Cannula OxygenNasal Cannula Oxygen Respiratory Care Routine Daily until discontinued starting 5Bon Portable ZooComment on above:Daily until discontinued starting 08/13/2024Neutrophils [#/volume] in Blood by Automated [facility] CenterNeutrophils/100 leukocytes in Blood by Automated [facility] CenterNucleated erythrocytes [Presence] in Blood by Automated [facility] Medical CenterOxygen Therapy - Maintain SpO2: 90% or greaterOxygen Therapy - Maintain SpO2: 90% or greater Respiratory Care STAT As Needed until discontinued starting 12/30/2024[facility] Work Phone: Comment on above:As Needed until discontinued starting 12/30/2024Oxygen Therapy - Maintain SpO2: 90%; *PHYSICAL TESTING SUPERVISOR Guidelines for O2: Yes; Document: \[email or web address].org\epic\EPIC_Reference\Orders\Respiratory Care Guidelines\CPG Oxygen 2022.pdfOxygen Therapy - Maintain SpO2: 90%; *PHYSICAL TESTING SUPERVISOR Guidelines for O2: Yes; Document: \[email or web address]\epi c\EPIC_Reference\Orders\Respiratory Care Guidelines\CPG Oxygen 2022.pdf Respiratory Care Routine AsNeeded until discontinued starting 12/30/2024 [facility] Work Phone: Comment on above:As Needed until discontinued starting 12/30/2024Oxygen therapy [Minimum Data Set][employer]- [place], Culinary AgentsComselect specialty hospital-pontiac on above:Daily until discontinued starting 03/17/2020Daily until discontinued starting 03/18/2020Oxygen therapy [Minimum Data Set]Initiate Oxygen Therapy Protocol Respiratory Care Routine Daily until discontinued starting 08/06/2024 Bon Portable ZooSaint [facility] on above:Daily until discontinued starting 08/06/2024Oxygen therapy [Minimum Data Set]Initiate Oxygen Therapy Protocol Respiratory Care Routine Daily until discontinued starting 08/12/2024on Portable ZooSaint John'S B[facility] on above:Daily until discontinued starting 08/12/2024 End: 79-67-4234Splb Review, SmearBon Portable ZooSaint John'S B[facility] on above:One Time for 1 Occurrences starting 08/15/2024 until 08/15/2024Patient EducationKnow your [facility] Work Phone: Patient referralKindred Hospital Lima Ctr Work Phone: Platelet mean volume [Entitic volume] in Blood by Automated countUniversity Hospitals St. John Medical CenterPlatelets [#/volume] in Blood [facility] Lima CenterPOCT glucoseMer[facility] Health [facility] Health Work Phone: comment on above:4X Daily (AC & HS) until discontinued starting 03/18/2020As Needed until discontinued starting 03/18/2020As Needed until discontinued starting 07/18/20194X Daily (AC & HS) until discontinued starting 07/22/20194X Daily (AC & HS) until discontinued starting 04/24/2019As Needed until discontinued starting 04/24/2019Positive Expiratory Pressure TherapyPositive Expiratory Pressure Therapy Respiratory Care Routine TID until discontinued starting 5Bon [employer] on above:TID until discontinued starting 08/06/2024 End: 80-98-1991DdojenxpzlurxAUA ZAO [employer] Phone: comment on above:1 Occurrences starting 08/13/2022 until 9283Wexezgg-WKPOhcoujx-OKN Lab STAT As Needed until discontinued starting 03/17/2020[facility] [employer], [place]Comment on [place]:As Needed until discontinued starting 03/17/2020Pulse oximetry, continuousPike Community HospitalAccelitec Phone: comment on above:Every 4hr until discontinued starting 07/18/2019Every 4hr until discontinued starting 04/22/2019Respiratory care evaluation onlyRespiratory care evaluation only Respiratory Care Routine As Needed until discontinued starting 07/22/2019[facility] [employer], [place]Comment on above:As Needed until discontinued starting 07/22/2019 End: 15-49-1459Ijpxbsaghai pathogens DNA and RNA panel - Nasopharynx by JANIA with non-probe detectionResp Pathogens Panel/SARS CoV-2 Microbiology Routine Once for 1 Occurrences starting 12/30/2024 until 12/30/2024[facility] Comment on above:Once for 1 Occurrences starting 12/30/2024 until 12/30/2024 End: 07-51-1257LBNX-CoV-2 (COVID-19) RNA [Presence] in Respiratory specimen by JANIA with probe detectionSARS/FLU A+B/RSV by NAAT/Molecular (M4RT Collection Tube) Microbiology STAT STAT for 1 Occurrences starting 12/30/2024 until 12/30/2024Way[facility] HospitalSurvature [facility] Gerber HospitalComment on above:STAT for 1 Occurrences starting 12/30/2024 until 12/30/2024 End: 48-41-2098Bthtsq gram stainSputum gram stain Microbiology Routine One Time for 1 Occurrences starting 07/18/2019 until 07/18/2019[facility] [employer] [place] Comment on above:One Time for 1 Occurrences starting 07/18/2019 until 07/18/2019 End: 97-08-9020GTMMGGHS PATHOLOGY REPORTSURGICAL PATHOLOGY REPORT Lab Routine Once for 1 Occurrences starting 08/15/2024 until 5Bon [facility] City HospitalComment on above:Once for 1 Occurrences starting 08/15/2024 until 08/15/2024 End: 53-55-4777Etzpqvnolp, reflex to microscopicUrinalysis, reflex to microscopic Lab STAT One Time for 1 Occurrences starting 03/21/2020 until 03/02[facility], [place]Comment on above:One Time for 1 Occurrences starting 03/21/2020 until 03/21/2020 Immunizations Immunization DateImmunizationNotesCare UeluhpdhCyjomall74-47-7000kjsmalq toxoid, reduced diphtheria toxoid, and acellular pertussis vaccine, adsorbedCrystal Genevieve Holzer HospitalBmfkyq46-15-5603jukilgjzcbfx polysaccharide vaccine, 23 valentAimee [facility] HospitalPtbwhh73-55-7858ffgtsbndcryh vaccine, unspecified formulationJustin Andes DO Work Phone: [facility] Work Phone: [phone]ycprn, seasonal, injectable; Translations: [Fluarix Quadravalent]Vahid [facility] Work Phone: comment on above:Note: Patient tolerated well. No signs or symptoms of adverse reactions. Patient waited in facilityfor 15 minutes.55-03-1134rtuwydavc, injectable, quadrivalent, preservative freeAimee [facility] Work Phone: [phone]nh virus vaccine, unspecified formulationSmicah Pickett MD Work Phone: G [facility] CenterGhmwpm01-98-4446twsyhoimu virus vaccine, unspecified formulationSmaria elena Rodriguez MD Work Phone: [facility] SYSTEMGMZKGG12-55-1190huokmrege, seasonal, injectableCrystal Genevieve Holzer Hospital03-09-2019influenza virus vaccine, unspecified formulationC[facility] 88-95-1111biszznemk, injectable, quadrivalent, preservative freeC[facility] Genevieve [facility]zer Hospital03-09-2019Influenza, Quadv, 6 mo and older, IM, PF (Flulaval, Fluarix)VahidFort Hamilton HospitalBaciid56-47-9742jsxxaqlsduey conjugate vaccine, 13 [facility], QP34-19-2065ejldobidnzvz conjugate vaccine, 7 [facility] Work Phone: [phone]nph virus vaccine, unspecified formulationSmaria elena Rodriguez MD Work Phone: bon [facility] Work Phone: [phone], seasonal, injectablemee [facility] Work Phone: [phone]a, injectable, quadrivalent, preservative free; Translations: [FLU VAC NO PRSV 4 OTONIEL 3 YRS+][facility] 1405764-51-6649cmgfqjazb, seasonal, injectable, preservative freeVA [facility] 10-006769-85-6130OTZFEYYHOJLW ADMIN; Translations: [IMMUNIZATION ADMIN]Zach [facility] 1954035-89-8647xuhbijbul virus vaccine, unspecified formulationC[facility] Work Phone: pOhio State Health System SystemComment on above:Note: Influenza (Adult)21-40-3515wasdjnpti, high dose seasonal, preservative-freeSelect Medical Specialty [facility] Work Phone: Comment on above:Note: Influenza (Adult)01-07-2017 tetanus toxoid, reduced diphtheria toxoid, and acellular pertussis vaccine, adsorbedBlanchard Valley Health SystemCbcdrt67-85-8832moycfimnc, injectable, quadrivalent, preservative free; Translations: [FLU VAC NO PRSV 4 OTONIEL 3 YRS+][facility] 1936535-76-9422vghgqtawa, seasonal, injectableVA [facility] 1202876-16-6723TADSVOFHPSXE ADMIN; Translations: [IMMUNIZATION ADMIN]Zach GrimaldoCardinal Cushing Hospital 1502427-49-3435ukucwcugz virus vaccine, unspecified formulationMcleod Health Clarendonen [facility] Work Phone: [facility] Work Phone: comment on above:Note: Influenza (Adult)02-10-2015 influenza, high dose seasonal, preservative-freeSelect Medical Specialty [facility] Work Phone: comment on above:Note: Influenza (Adult)12-30-2013 influenza virus vaccine, unspecified formulationBlanchard Valley Health System 82-63-6736afdytdfkz, seasonal, injectableCrystal Genevieve Holzer Hospital12-17-2009novel rqbngxvuw-P2T7-24, preservative-free, injectableStefan Jennifer MARTINEZ Work Phone: [facility] Work Phone: Payers DatePayer CategoryPayerPolicy [id number]-pay2022Medicaid .[id number] 2022Medicaid [facility] Member Subscriber Plan / Payer (Effective 2022-Present) Name: Jonatan Olivarez Alan Relation to Subscriber: Self Name: Jonatan Olivarez Payer ID: [id number] (NAIC) Type: Not on file Address: [address] [id number] [id number] 1.2.840.587882.1.13.239.2.7.3.626358.00639-79-6524Wtlcrdu [id number] 2.0.1.681511.3.96048-09-4788Hiamkxt [id number] 2.16840.1.713709.3.94384-87-5502SjxbjulWVMDNLGUH ADVANTAGE PARAMOUNT ADVANTAGE xxxxxxxxxxx 2017- [phone] [address] [place] , [place] [address]cumztfyodzq 1.2.840.330760.1.13.239.2.7.3.712568.04928-97-2869Azsihsx PARAMOUNT ADVANTAGE PARAMOUNT ADVANTAGE [id number] 2017- [phone] [address] [place], [place] [id number] 1.2.840.617129.1.13.239.2.7.3.243174.05283-84-2863JblyddbRUGB 2.0.1.09695[id number] 2.0.1.137836.3.579.2.196 [id number] 2.0.1.185918.3.57[id number] 2.0.1.591245.3.57[id number] 2.0.1.911054.3.57[id number] 2.0.1.788670.3.57[id number] 2.840.1.761913.3.57[id number] 2.840.1.853808.3.57[id number] 2.16.840.1.587992.3.57[id number] 2.16.840.1.616167.3.57[id number] 2.16.840.1.101855.3.57[id number] 2.16.840.1.449819.3.57[id number] 2.16.840.1.516836.3.57[id number] 2.16.840.1.481212.3.57[id number] 2.16.840.1.925236.3.57[id number] 2.16.840.1.756607.3.57[id number] 2.16.840.1.671890.3.57[id number] 2.16.840.1.533116.3.57[id number] 2.16.840.1.994549.3.57[id number] 2.16.840.1.321126.3.57[id number] 2.16.840.1.039107.3.57[id number] 2.16.840.1.025896.3.57[id number] 2.16.840.1.331432.3.57[id number] 2.16.840.1.386001.3.57[id number] 2.16.840.1.454054.3.57[id number] 2.16.840.1.453987.3.57[id number] 2.16.840.1.543077.3.57[id number] 2.16.840.1.521348.3.57[id number] 2.16.840.1.333832.3.57[id number] 2.16.840.1.614534.3.57[id number] 2.16.840.1.778602.3.57[id number] 2.16.840.1.836359.3.57[id number] 2.16.840.1.136650.3.579.[id number] 1.2.840.899805.1.13.23[id number] 2.16.840.1.155202.3.579.2.531 Social History DateTypeDetailFacilityStart: 01-31-8234Keowi tobacco smokerCardinal Cushing Hospital start: 01-13-2019 End: 31-09-1037Asxmqvi every day smokerHealth [facility] AssertionFamily problems (finding)Health [facility] Work Phone: assertionGender identity finding (finding)Health [facility] Work Phone: assertionFinding of sexual orientation (finding)Health [facility] Work Phone: assertionTobacco user (finding)Health [facility] Work Phone: Tobacco smoking statusUnknown if ever smokedHealth [facility] Work Phone: start: 83-87-3673KrxucsgfjPVXFAUQUIER HEALTH SYSTEM AssertionAlcohol consumption screening (procedure)[facility] Work Phone: start: 36-48-8829Esirseo of tobacco useCigarette SmokerOhio State Harding Hospital: 01-13-2019 End: 52-32-5340Nmjrnstgxd smoked current (pack per day) - ReportedENCOMPASS HEALTH RE[facility] [employer] [facility]ITALStart: 01-13-2019 End: 12-40-1172Zzrlfgm intakeNoGAEBLER CHILDREN'S CENTERQuryon, Inc. [facility]OSPITALStart: 00-15-4477Jsy Assigned At BirthNot on fileOhio State Harding Hospital: 02-23-2019 End: 43-69-0557Xgzqcig intakeCurrent non-drinker of alcohol (finding)[facility] HospitalAshwiniingle person (finding)[facility] Work Phone: assertionEmotional stress (finding)[facility] Work Phone: Start: 09-03-2019 End: 99-13-7780Sryefpz smoking status NHISCurrent some day smokerWilson Street Hospital Exposure to SARS-CoV-2 (event)Unable to assessUNC Health Wayne Exposure to pollution (event)[facility] Work Phone: Start: 10-21-2019 End: 50-31-5832Ymsbszo use and exposureNever usedOhio State Harding Hospital: 06-16-2021 End: 65-33-6718Iwaxcblu to SARS-CoV-2 (event)Not sureWilson [address] Hospital- [place], [place] AssertionSupport system deficit (finding)[facility] Work Phone: assertionFamily illness (situation)[facility] Work Phone: assertionProblem situation relating to social and personal history (finding)[facility] Work Phone: Start: 02-21-2021 End: 04-80-6657Iibkdoh smoking status NHISLight tobacco smokerMercy Health Lorain Hospital [employer] Phone: start: 02-21-2021 End: 14-45-2984Lyhfbag Comment1 cigarette every 1-2 daysMercy Health Lorain [facility] Phone: start: [phone] SDOH Fvwxrqoqw6Mwgta RepRegen Work Phone: start: [phone] SDOH Food Rmwsr2Qkrdk [employer]Regen Work Phone: start: 07-19-2021 End: 82-90-5238Utejjxl intakeLifetime non-drinker (finding)[facility] Centertart: 42-41-7315Aqxdwpk SDOH Transport Non-Ycx14BUI [employer] Work Phone: start: 42-21-1719Mitqzvj SDOH Housing Homeless Last Bamv5AVB [facility] Work Phone: (I/We) worried whether (my/our) food would run out before (I/we) got money to buy more.Never [facility] physicians medical centerBON Carbon BlackStart: 01-19-2024 End: 24-82-6881Mczvqrm smoking status NHISSmoker (finding)[facility] Hospitaltart: 62-27-5807Kvu Assigned At [facility] HospitalHa the electric, gas, oil, or water company threatened to shut off services in your home in past 12MoNoProSycamore Medical Center SystemAre you now , , , , never or living with a partner? DivorcedProFlorala Memorial Hospital Health SystemHow often to you have a drink containing alcohol? NeverProFlorala Memorial Hospital Health SystemHow hard is it for you to pay for the very basics like food, housing, medical care, and heatingHardProFlorala Memorial Hospital Health SystemDo you feel stress - tense, restless, nervous, or anxious, or unable to sleep at night because yourmind is troubled all the time - these days [OSQ]Not at allBarberton Citizens Hospital RepRegen SystemStart: 25-63-5480Jrdygrb Commentneeds a nicotine patch upon arrival [facility] HospitalKeepiotart: 05-11-2012 End: 74-74-5073CyiMtmpgj (finding)[facility] HospitalThe Trade Desk [facility] HospitalHas the [employer], gas, oil, or water company threatened to shut off services in your home in past 12Mo YesBarberton Citizens Hospital Health SystemHow often to you have a drink containing alcohol? Monthly or lessProSycamore Medical Center System(I/We) worried whether (my/our) food would run out before (I/we) got money to buy more.Sometimes trueBon [facility] HospitalNEGATED: Highlighted rowAssertionExposure to pollution (event)Health [facility] Work Phone: NEGATED: Highlighted rowAssertionCurrent drinker of alcohol (finding)Health [facility] Work Phone: NEGATED: Highlighted rowAssertionFinding relating to drug misuse behavior (finding)[facility] Work Phone: NEGATED: Highlighted rowAssertionIllicit drug use (finding)Health [facility] Work Phone: NEGATED: Highlighted rowAssertionMisuse of prescription only drugs (finding)Health [facility] Work Phone: NEGATED: Highlighted rowAssertionHealth [facility] Work Phone: NEGATED: Highlighted rowAssertionTobacco user (finding)[facility] Work Phone: Medical Equipment Procedure CodeEquipment CodeEquipment Original TextEquipment IdentifierDates Lancets Thin [id number]: 63-84-7063Bnyj Metrix Blood Glucose Test In Vitro [id number]: 57-74-57621222825Fmzia: 12-14-2016 End: 80-63-0712ugg as directed TO TEST BLOOD SUGAR three times a [id number] Start: 08-26-2014 End: 82-25-4266rtv as directed TO TEST BLOOD SUGAR three times a [id number] Start: 07-25-2019 End: 44-16-4390lsq as directed TO TEST BLOOD SUGAR three times a [id number] Start: 03-19-2020 End: 66-45-9304Iydrcipe sufficient amount for indicated testing frequency plus additional to accommodate PRN testing needs. Dispense all needed supplies to include: monitor, strips, lancing device, lancets, controlsolutions, alcohol swabs.[id number]: 56-24-1734Kqtv 3 times a day & as needed for symptoms of irregular blood glucose. Dispense sufficient amount for indicated testing frequency plus additional to accommodate PRN testing needs.[id number]: 03-23-2021 End: 56-82-2946Vklc 3 times a day & as needed for symptoms of irregular blood glucose. Dispense sufficient amount for indicated testing frequency plus additional to accommodate PRN testing needs.[id number]: 54-15-8746Bhlene test blood sugar 1 times daily and prn for symptoms of hyperglycemia or hypoglycemia.[id number]: 19-76-2745Xct Sft Tis 50cmx.49mm 16/8mm - [id number] - [id number]_rluVlcwj: 56-82-5478Zkjppdf on above:Description: hemagard knitted collagen coated knitted polyester vascular prosthesis. Aorta bifemoralGft Hep Rr T6mm 60cm Rs X70cm - [id number] - [id number]_dfq Start: 45-10-0400Obcpqwp on above:Description: LEFT FEMORAL-POPLITEAL BYPASS1 strip by other route as needed for high blood sugar.[id number]: 07-16-2024 Goals DatePatient GoalDesired Activity/StatePersonal health goalPersonal health goal Comment on above: Evaluation of progress towards goal: patient will go to SNF for therapyPersonal health goalComment on above: Evaluation of progress towards goal: Patient plans to Home and resume Home Health with [facility] (RN/PT/OT). She is agreeable to [facility] and prefers to go to [facility] as it is closer to home. Personal health goalComment on above: Evaluation of progress towards goal: Patient plans to Home and resume Home Health with [facility] (RN/PT/OT). She states that [facility] goes [facility] [place]. Functional Status LhjfJyferwfpdrIuhpgcXuryqnpc13-46-6847Pkigcxugul statusPatient at Baseline [facility] Work Phone: [facility] Mental Status DnjjMdbwvfvmmnIxziemFcvakqgd08-04-3923Pupzgdwzv functionCognitive Status Patient at [facility]Bl[facility] Work Phone: Cognitive functionCognitive functioning was normal Cognitive function finding (finding)Health [facility] Work Phone: [facility] Clinical Notes 04-12-2019 to 01-01-2025 Note Date & IfafBslkRckqxwtu83-53-9806 Nurse Note* Donna Napoles RN - 01/01/2025 3:55 PM EDT PTN called and stated that transportation is now being delayed d/t a crew shuffle and will be in approximately 60-90 minutes now. [facility]10-03-2025 Nurse Note* Donna Napoles RN - 01/01/2025 [...] patient. Report was called to Leena Blake [phone] and given to Marquita. Requested to have CRF faxed to [phone]. * Corrine Mcintosh RN - 01/01/2025 12:04 AM EDT Poultryman in to talk to patient about potassium [...] and patient refused to have that done. Poultryman explained to patient why all were ordered [...] Pt continues to refuse. documented in this encounterLakeHealth [facility]10-03-[facility] Nurse Note* Donna Napoles RN - 01/01/2025 12:48 PM EDT Patient discharge orders were placed and reviewed. PIVs removed. Patient's family notified of discharge at this time. Transportation with PTN was arranged and ETA is set for 1600. PTN paperwork completed and sent via current process. IP mobile printed. CRF printed to be sent with patient. Report was called to Leena Blake [phone] and given to Marquita. Requested to have CRF faxed to [phone]. [facility]10-03-2025 Plan of care note* Plan of Care [...] on patient's door 9. Provide patient/ patient food service sales representatives with isolation education. Outcome: Completed Problem: Potential [...] supplement as ordered 13. Collaborate with clinical php architect 14. Include patient/ patient's food service sales representatives in decisions related to nutrition Outcome: Completed [...] Description: INTERVENTIONS: 1. Encourage patient or legal food service sales representatives to report early pain and ask for [...] per policy 9. Teach patient or legal food service sales representatives interventions for comforting Outcome: Completed Problem: Safety [...] at the bedside 7. Instruct patient/ patient food service sales representatives about use of safety devices 8. Include patient/ patient food service sales representatives in decisions related to safety Outcome: Completed [...] hygiene technique. 7. Identify and instruct patient/patient food service sales representatives in use of appropriate isolation precautionsfor identified infection/symptoms. 8. Provide and discuss with patient/patient food service sales representatives on educational MDRO sheet. 9. Encourage and monitor nutritional status daily and consult php architect if indicated. 10. Implement neutropenic guidelines as needed. Outcome: Completed Problem: Knowledge Deficit Goal: Patient/patient food service sales representatives demonstrates understanding of disease process, treatment plan,medications, [...] Score of =/> 25 or indicated by [facility] Assessment Goal: Patient should be free from fall Description: Interventions: 1. [place] to environment 2. Hourly rounds addressing the [...] non-skid footwear 11. Teach patient and patient food service sales representatives to maintain environment for safety and engage [...] (cane, walker) within reach 19. Request patient food service sales representatives bring adaptive equipment/mobility aids from home or obtain and provide as needed 20. Consult pharmacy regarding effects of med's affecting mobility, cognition, and alternatives 21. Obtain physician order for PT if risk factors associated with mobility are present 22. Obtain physician order for OT as appropriate 23. Utilize diversional activities 24. Educate patient and patient food service sales representatives how to maintain a safe environment during visitationtimes (notify nurse prior to leaving bedside) 25. Consider appropriateness of medical or non-medical lab technician 26. Set up voiding schedule as appropriate [...] Handoff to next level of care provider (career developer, PCP, home care). 5. Complete follow up [...] Discharge Time-Out or Discharge Final-Check. Outcome: Completed [facility] HealthYobongo [id number] Miscellaneous Notes* Plan of Care - Donna [...] on patient's door 9. Provide patient/ patient food service sales representatives with isolation education. Outcome: Completed Problem: Potential [...] supplement as ordered 13. Collaborate with clinical php architect 14. Include patient/ patient's food service sales representatives in decisions related to nutrition Outcome: Completed [...] Description: INTERVENTIONS: 1. Encourage patient or legal food service sales representatives to report early pain and ask for [...] per policy 9. Teach patient or legal food service sales representatives interventions for comforting Outcome: Completed Problem: Safety [...] at the bedside 7. Instruct patient/ patient food service sales representatives about use of safety devices 8. Include patient/ patient food service sales representatives in decisions related to safety Outcome: Completed [...] hygiene technique. 7. Identify and instruct patient/patient food service sales representatives in use of appropriate isolation precautionsfor identified infection/symptoms. 8. Provide and discuss with patient/patient food service sales representatives on educational MDRO sheet. 9. Encourage and monitor nutritional status daily and consult php architect if indicated. 10. Implement neutropenic guidelines as needed. Outcome: Completed Problem: Knowledge Deficit Goal: Patient/patient food service sales representatives demonstrates understanding of disease process, treatment plan,medications, [...] be free from fall Description: Interventions: 1. [place] to environment 2. Hourly rounds addressing the [...] non-skid footwear 11. Teach patient and patient food service sales representatives to maintain environment for safety and engage [...] (cane, walker) within reach 19. Request patient food service sales representatives bring adaptive equipment/mobility aids from home or obtain and provide as needed 20. Consult pharmacy regarding effects of med's affecting mobility, cognition, and alternatives 21. Obtain physician order for PT if risk factors associated with mobility are present 22. Obtain physician order for OT as appropriate 23. Utilize diversional activities 24. Educate patient and patient food service sales representatives how to maintain a safe environment during visitationtimes (notify nurse prior to leaving bedside) 25. Consider appropriateness of medical or non-medical lab technician 26. Set up voiding schedule as appropriate [...] Handoff to next level of care provider (career developer, PCP, home care). 5. Complete follow up [...] on patient's door 9. Provide patient/ patient food service sales representatives with isolation education. Outcome: Progressing Note: Evaluation [...] supplement as ordered 13. Collaborate with clinical php architect 14. Include patient/ patient's food service sales representatives in decisions related to nutrition Outcome: Progressing [...] Description: INTERVENTIONS: 1. Encourage patient or legal food service sales representatives to report early pain and ask for [...] per policy 9. Teach patient or legal food service sales representatives interventions for comforting Outcome: Progressing Note: Evaluation [...] at the bedside 7. Instruct patient/ patient food service sales representatives about use of safety devices 8. Include patient/ patient food service sales representatives in decisions related to safety Outcome: Progressing [...] hygiene technique. 7. Identify and instruct patient/patient food service sales representatives in use of appropriate isolation precautionsfor identified infection/symptoms. 8. Provide and discuss with patient/patient food service sales representatives on educational MDRO sheet. 9. Encourage and monitor nutritional status daily and consult php architect if indicated. 10. Implement neutropenic guidelines as needed. Outcome: Progressing Note: Evaluation of progress towards goal: IV antibiotics continues for infection. 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 * Discharge Planning Note - Jodee Cook RN - 12/31/2024 12:08 PM EDT 12/31/24 7299 Patient Information Initial Pre-Hospitalization Assessment Completed? In-Progress In-Progress Reason: Attempted assessment: patient unable to participate/Contacts unavailable (patient sleeping, unable to wake up. RN notified. CN called patient's son, no answer. Unable to leave voicemail. CN called [facility], no answer. Voicemail left.) Support System Family Members Discharge Planning Type of Residence detention Care Facility Name [facility] [address] [place] [address] Home Care Services No Income Information Income Information Retired/Pension/Social Security Services Requested Patient expects to be discharged to: SNF Discharge Disposition SNF SNF Name [facility] [address] [place] [address] DISCHARGE PLANNING NOTE CN attempted to complete assessment w/ paitent at bedside. Patient sleeping deeply, unable to arouse. RN notified. CN called patient's son, no answer. Unable to leave voicemail. CN called [facility], no answer. Voicemail left. Plan: Return to [facility]. Facility called, voicemail left. Will clarify patient's level of care. [facility] [address] [place] [address] - Jodee Cook RN 12/31/24 12:12 PM Update: Poultryman spoke w/ [facility]. Patient is a long-term [...] roll. Pt tolerated well. documented in this encounterL[facility]10-[facility] Hospital course Narrative* Nat Reynolds MD - 01/01/2025 12:00 PM EDT Images from the original note were not included. [facility] INTERNAL MEDICINE [facility] [address] [facility] [id number] Hospital Medicine Discharge Summary Patient: Jonatan Olivarez Date of : 1960 Room: Encounter date: 01/01/25 Hospital Day: 3 DATE OF ADMISSION: 12/30/2024 DATE OF DISCHARGE:01/01/2025 DISCHARGE DIAGNOSES Principal Problem: Acute cystitis without hematuria Active Problems: Hypothyroidism Tobacco abuse COPD with acute exacerbation ([facility]) Hyperlipidemia Primary hypertension Type 2 diabetes mellitus with diabetic foot infection ([facility]) Osteomyelitis of left foot ([facility]) A-fib ([facility]) Controlled type 2 diabetes mellitus with diabetic peripheral angiopathy and gangrene, without long-term current use of insulin ([facility]) CONSULTANTS none PCP: Osmar Rodriguez MD PROCEDURES none HOSPITAL COURSE SUMMARY Jonatan Olivarez is a 64 y.o. female who presented with hypoxia. It is noted that patient was 72% on 2 L upon arrival from [facility]. 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 Daily supplement Is on lasix 20 daily [...] Abnormality Status --------- ------ Troponin I, High Sensiti...[[id number]] Normal Final result Troponin I, High Sensiti...[[id number]] Normal Final result Please view results for [...] Range Extra Tube Auto Resulted Extra Urine [place] Collection Time: 12/30/24 5:08 PM Specimen: Urine, Clean Catch Midstream Result Value Ref Range Extra Tube Auto Resulted POCT Nursing Urine Macroscopic UA Collection Time: 12/30/24 5:08 PM Result Value Ref Range POC Urine Specific [place] 1.010 1.010, 1.015, 1.020, 1.025 POC Urine [...] Procedure Abnormality Status --------- ------ Light Blue Top[[id number]] Final result Please view results for these [...] Prominent atherosclerotic calcifications in the aorta. Severe [place] coronary artery calcifications. There is prominence of [...] the first and second toes predominantly. Workst ation:[id number] Finalized by Josiah Ken MD on 12/05/2024 2:38 PM DISCHARGE INSTRUCTION Disposition: senior living facility Condition: Stable Activity: activity as tolerated Diet: Adult diet Regular Texture; Consistent Carb 255 grams (2000 kcal); No Added Salt (3-4 gm Sodium); Fluid Restriction 2000 mL Adult diet Follow up: Osmar Rodriguez MD within 7-14 days. Labs/Imaging/Pathology: Pending Labs Order Current Status POCT Nursing Urine Macroscopic UA Collected (12/30/24 4263) Discharge Medications: Medication List START taking these [...] the morning. Pro-stat oral lqiuid ( amino seskj-ucdgvag-ihxrkhnxmif) -give 30 ml po in the morning [...] this patient. YOVANY Tang 01/01/2025 12:00 PM [facility] Internal Medicine 7AM-7PM & 7PM-7AM: EpicChat or [...] noted. NAT REYNOLDS MD documented in this encounterWayne HospitalDial2Do [facility] [id number] Nurse Note* Corrine Mcintosh RN - 01/01/2025 12:04 AM EDT Poultryman in to talk to patient about potassium [...] and patient refused to have that done. Poultryman explained to patient why all were ordered and patient continues to decline to have them done. [facility]10-02-2025 Plan of care note* Plan of Care [...] on patient's door 9. Provide patient/ patient food service sales representatives with isolation education. Outcome: Progressing Note: Evaluation [...] supplement as ordered 13. Collaborate with clinical php architect 14. Include patient/ patient's food service sales representatives in decisions related to nutrition Outcome: Progressing [...] Description: INTERVENTIONS: 1. Encourage patient or legal food service sales representatives to report early pain and ask for [...] per policy 9. Teach patient or legal food service sales representatives interventions for comforting Outcome: Progressing Note: Evaluation [...] at the bedside 7. Instruct patient/ patient food service sales representatives about use of safety devices 8. Include patient/ patient food service sales representatives in decisions related to safety Outcome: Progressing [...] hygiene technique. 7. Identify and instruct patient/patient food service sales representatives in use of appropriate isolation precautionsfor identified infection/symptoms. 8. Provide and discuss with patient/patient food service sales representatives on educational MDRO sheet. 9. Encourage and monitor nutritional status daily and consult php architect if indicated. 10. Implement neutropenic guidelines as needed. Outcome: Progressing Note: Evaluation of progress towards goal: IV antibiotics continues for infection. 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 [employer]10-02-2025 Progress note* Discharge Planning Note - Jodee Cook RN - 12/31/2024 12:08 PM EDT 12/31/24 7579 Patient Information Initial Pre-Hospitalization Assessment Completed? In-Progress In-Progress Reason: Attempted assessment: patient unable to participate/Contacts unavailable (patient sleeping, unable to wake up. RN notified. CN called patient's son, no answer. Unable to leave voicemail. CN called [facility], no answer. Voicemail left.) Support System Family Members Discharge Planning Type of Residence detention Care Facility Name [facility] [address] [place] [address] Home Care Services No Income Information Income Information Retired/Pension/Social Security Services Requested Patient expects to be discharged to: SNF Discharge Disposition SNF SNF Name [facility] [address] [place] [address] DISCHARGE PLANNING NOTE CN attempted to complete assessment w/ paitent at bedside. Patient sleeping deeply, unable to arouse. RN notified. CN called patient's son, no answer. Unable to leave voicemail. CN called [facility], no answer. Voicemail left. Plan: Return to [facility]. Facility called, voicemail left. Will clarify patient's level of care. [facility] [address] [place] [address] - Jodee Cook RN 12/31/24 12:12 PM Update: Poultryman spoke w/ [facility]. Patient is a long-term resident at facility and can return once medically ready. - Jodee Cook RN 12/31/24 2:21 PM [facility]10-02-2025 Plan of care note* Plan of Care [...] 12/31/2024 1056 by TALA Rangel Outcome: Completed [facility]10-02-2025 History and physical note* Nat Reynolds MD - 12/31/2024 9:00 AM EDT Images from the original note were not included. [facility]IC[facility] [address] [facility] [address] Hospital Medicine History & Physical Patient: Jonatan Olivarez Date of : 1960 Room: [facility] PCP: Osmar Rodriguez MD Admission date: 12/30/2024 3:02 PM Encounter date: 12/31/24 Hospital Day: 2 SUBJECTIVE Jonatan Olivarez is a 64 y.o. female who presents with hypoxia. It is noted that patient was 72% on 2 L upon arrival from [facility]. Per staff her readings had been from [...] needed for wheezing. 03/18/24 Yes Kellen Shah APRN-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 amino acids-protein hydrolys 17-100 gram-kcal/30 mL liquid Take 30 mL by mouth in the morning. Pro-stat oral lqiuid ( amino iismv-uzmejkb-bwxpjgmlbao) -give 30 ml po in the morning [...] in the morning. 01/18/24 Yes Corie Muller APRN-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 benzonatate (TESSALON PERLES) 200 mg capsule Take [...] needed for itching. 12/11/24 Yes Helio Giles APRN-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 docusate sodium (COLACE) 100 mg capsule Take 1 capsule (100 mg total) by mouth as needed in the morning and 1 capsule (100 mg total) as needed in the evening for constipation. 02/06/24 Yes Not In System Ref Prov ferrous sulfate 325 (65 FE) MG tablet Take 1 tablet (325 mg total) by mouth in the morning. 12/17/24Yes Alondra Amado APRN-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 furosemide (LASIX) 20 mg tablet Take 1 [...] and or wheezing. 10/23/22 Yes Fredy Mcclain APRN-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 levoFLOXacin (LEVAQUIN) 750 mg tablet Take 1 [...] needed for opioid reversal. 12/17/24 Alondra Amado APRN-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 Code Status: Full Code Past Medical History: Patient has a past medical history of ASHD (arteriosclerotic heart disease), Atherosclerosis of both carotid arteries, CAD S/P percutaneous coronary angioplasty, Claudication in peripheral vascular disease, COPD (chronic obstructive pulmonary disease) ([facility]), Dental disease, Diabetes mellitus ([facility]), Diabetes mellitus type 2, controlled ([facility]), Disease of thyroid gland, Dizziness, Emphysema of lung ([facility]), Hypertension, Hypothyroidism, Lower GI bleed (01/09/2024), Stable [...] Abnormality Status --------- ------ Troponin I, High Sensiti...[[id number]] Normal Final result Troponin I, High Sensiti...[[id number]] Normal Final result Please view results for [...] Range Extra Tube Auto Resulted Extra Urine [place] Collection Time: 12/30/24 5:08 PM Specimen: Urine, Clean Catch Midstream Result Value Ref Range Extra Tube Auto Resulted POCT Nursing Urine Macroscopic UA Collection Time: 12/30/24 5:08 PM Result Value Ref Range POC Urine Specific [place] 1.010 1.010, 1.015, 1.020, 1.025 POC Urine [...] Prominent atherosclerotic calcifications in the aorta. Severe salt river coronary artery calcifications. There is prominence of [...] the first and second toes predominantly. Workst ation:[id number] Finalized by Josiah Ken MD on 12/05/2024 2:38 PM HOSPITAL PROBLEM LIST Principal Problem: Acute cystitis without hematuria Active Problems: Hypothyroidism Tobacco abuse COPD with acute exacerbation ([facility]) Hyperlipidemia Primary hypertension Type 2 diabetes mellitus with diabetic foot infection ([facility]) Osteomyelitis of left foot ([facility]) A-fib ([facility]) Controlled type 2 diabetes mellitus with diabetic peripheral angiopathy and gangrene, without long-term current use of insulin ([facility]) ASSESSMENT & PLAN Acute hypoxic respiratory failure-COPD [...] Rocephin Hypokalemia Potassium 2.8 on admission- 3.1 public policy associate Daily supplement Is on lasix 20 daily [...] above, unless otherwise noted. NAT REYNOLDS MD [facility]10-02-2025 History and physical note* Nat Reynolds MD - 12/31/2024 9:00 AM EDT Images from the original note were not included. [facility] [address] [id number] Hospital Medicine History & Physical Patient: Jonatan Olivarez Date of : 1960 Room: PCP: Osmar Rodriguez MD Admission date: 12/30/2024 3:02 PM Encounter date: 12/31/24 Hospital Day: 2 SUBJECTIVE Jonatan Olivarez is a 64 y.o. female who presents with hypoxia. It is noted that patient was 72% on 2 L upon arrival from [place]. Per staff her readings had been from [...] the morning. Pro-stat oral lqiuid ( amino cjzyl-ugxjrpy-miubhxheprd) -give 30 ml po in the morning [...] by mouth in the morning. 09/27/22 Yes OYVANY Cedeno nitroglycerin (NITROSTAT) 0.4 MG SL tablet [...] vascular disease, COPD (chronic obstructive pulmonary disease) ([facility]), Dental disease, Diabetes mellitus ( [facility]), Diabetes mellitus type 2, controlled ([facility]), Disease of thyroid gland, Dizziness, Emphysema of lung ([facility]), Hypertension, Hypothyroidism, Lower GI bleed (01/09/2024), Stable [...] Abnormality Status --------- ------ Troponin I, High Sensiti...[[id number]] Normal Final result Troponin I, High Sensiti...[[id number]] Normal Final result Please view results for [...] Range Extra Tube Auto Resulted Extra Urine [place] Collection Time: 12/30/24 5:08 PM Specimen: Urine, Clean Catch Midstream Result Value Ref Range Extra Tube Auto Resulted POCT Nursing Urine Macroscopic UA Collection Time: 12/30/24 5:08 PM Result Value Ref Range POC Urine Specific Madison 1.010 1.010, 1.015, 1.020, 1.025 POC Urine [...] Prominent atherosclerotic calcifications in the aorta. Severe salt river coronary artery calcifications. There is prominence of [...] the first and second toes predominantly. Workst ation:[id number] Finalized by Josiah Ken MD on 12/05/2024 2:38 PM HOSPITAL PROBLEM LIST Principal Problem: Acute cystitis without hematuria Active Problems: Hypothyroidism Tobacco abuse COPD with acute exacerbation ([facility]) Hyperlipidemia Primary hypertension Type 2 diabetes mellitus with diabetic foot infection ([facility]) Osteomyelitis of left foot ([facility]) A-fib ([facility]) Controlled type 2 diabetes mellitus with diabetic peripheral angiopathy and gangrene, without long-term current use of insulin ([facility]) ASSESSMENT & PLAN Acute hypoxic respiratory failure-COPD [...] Rocephin Hypokalemia Potassium 2.8 on admission- 3.1 public policy associate Daily supplement Is on lasix 20 daily [...] noted. NAT REYNOLDS MD documented in [facility] encounterL[facility] Nurse Note* Anushka Zimmerman RN - 12/31/2024 6:25 AM EDT Pt uncooperative with taking am medications. Refusing to take all of her potassium replacement, pt took 30 of the 50meq needed for replacement per protocol. Pt educated on importance of taking potassium and risks of not taking potassium. Pt continues to refuse. [facility]10-01-2025 Progress note* Wound Care - Anushka Zimmerman [...] wrapped w/ gauze roll. Pt tolerated well. [facility]10-01-2025 Progress note* Wound Care - Anushka Zimmerman [...] wrapped w/ gauze roll. Pt tolerated well. [facility]10-01-2025 Physician Emergency department Note* Kellen HILDA Shah-FABIENNE - 12/30/2024 3:09 PM EDT Images from the original note were not included. [facility] - EM[facility]GENCY Pt Name: Jonatan Olivarez Birthdate: 1960 Chief Complaint: Chief Complaint Patient presents with Shortness of Breath EMS reports that pt was 72% 2L NC upon arrival at nursing facility. History of Present Illness: Savita Olivarez is a 64-year-old female that presents to ED via EMS from [facility] with complaint of hypoxia. Staff state [...] History provided by: Patient and EMS personnel automotive design drafter used: No Past Medical History: Past Medical History: Diagnosis Date ASHD (arteriosclerotic heart disease) Atherosclerosis of both carotid arteries CAD S/P percutaneous coronary angioplasty Claudication in peripheral vascular disease COPD (chronic obstructive pulmonary disease) ([facility]) Dental disease Diabetes mellitus ([facility]) Diabetes mellitus type 2, controlled ([facility]) Disease of thyroid gland Dizziness Emphysema of lung ([facility]) Hypertension Hypothyroidism Lower GI bleed 01/09/2024 Stable angina Ulcer left great toe Ventral hernia Visual impairment Past Surgical History: Past Surgical History: Procedure Laterality Date AORTO-BIFEMORAL BYPASS, VENTRAL HERNIA REPAIR, LEFT FEMORAL TO [id number] POPLITEAL BYPASS [id number] PTFE PROPATEN GORE VASCULAR GRAFT, AND COMPLETION ANGIOGRAM OF LEFT LOWER EXTREMITY Left 06/03/2017 Performed by Rebeca Johnson DO at [facility] CATHE[facility] Cardiac catheterization N/A 09/25/2022 Performed by Bonnie Toledo MD at [facility] CARDIAC CATH LABS CARDIAC SURGERY 2001 3 stents CHOLECYSTECTOMY Coronary angiogram and left ventricular gram/pressure N/A 09/25/2022 Performed by Bonnie Toledo MD at [facility] CATH [facility]S ESOPHAGOGASTRODUODENOSCOPY DIAGNOSTIC N/A 01/17/2024 Performed by Jazmine Gutierrez MD at [facility] ESOPHAGOGASTRODUODENOSCOPY DIAGNOSTIC N/A 01/10/2024 Performed by Renuka Angeles MD at [facility] FEMORAL BYPASS 2009 HYSTERECTOMY 2008 abdominal LYSIS RECHECK AND REMOVAL EXTREMITY UPPER Right 04/18/2024 Performed by Rebeca Johnson MD at [facility] PROC RIGHT BRACHIAL ACCESS, LEFT FEMORAL ANGIOGRAM, LYSIS CATHETER PLACEMENT Left 04/17/2024 Performed by Rebeca Johnson DO at [facility] PROC VASCULAR SURGERY 2007 blood clot [...] - Unmet Transportation Needs (10/22/2024) Received from [facility] - Transportation Lack of Transportation (Medical): Yes Lack of Transportation (Non-Medical): Yes Physical Activity: Inactive (10/22/2022) Exercise Vital Sign Days of Exercise per Week: 0 days Minutes of Exercise per Session: 0 min Stress: No Stress Concern Present (10/22/2022) [place] [employer] - Occupational Stress Questionnaire Feeling of Stress : Not at all Social Connections: Socially Isolated (10/22/2022) Social Connection and Isolation Panel [NHANES] Frequency of Communication with Friends and Family: More than three times a week Frequency of Social Gatherings with Friends and Family: More than three times a week Attends Zoroastrian Services: Never Active Member of Clubs or [...] above service. IDr. Pizano personally performed a mplk-oe-zkvu diagnostic evaluation on this patient. I personally [...] Cooper 12/30/24 1551 YOVANY Rebolledo 12/31/24 2126 [facility]10-01-2025 Emergency department Note* ELI Rebolledo CNP - 12/30/2024 3:09 PM EDT Images from the original note were not included. [facility] - EMERGENCY Pt Name: Jonatan Olivarez Birthdate: 1960 Chief Complaint: Chief Complaint Patient presents with Shortness of Breath EMS reports that pt was 72% 2L NC upon arrival at nursing facility. History of Present Illness: Savita Olivarez is a 64-year-old female that presents to ED via EMS from [facility] with complaint of hypoxia. Staff state [...] History provided by: Patient and EMS personnel automotive design drafter used: No Past Medical History: Past Medical History: Diagnosis Date ASHD (arteriosclerotic heart disease) Atherosclerosis of both carotid arteries CAD S/P percutaneous coronary angioplasty Claudication in peripheral vascular disease COPD (chronic obstructive pulmonary disease) ([facility]) Dental disease Diabetes mellitus ([facility]) Diabetes mellitus type 2, controlled ([facility]) Disease of thyroid gland Dizziness Emphysema of lung ([facility]) Hypertension Hypothyroidism Lower GI bleed 01/09/2024 Stable angina Ulcer left great toe Ventral hernia Visual impairment Past Surgical History: Past Surgical History: Procedure Laterality Date AORTO-BIFEMORAL BYPASS, VENTRAL HERNIA REPAIR, LEFT FEMORAL TO [id number] POPLITEAL BYPASS [id number] PTFE PROPATEN GORE VASCULAR GRAFT, AND COMPLETION ANGIOGRAM OF LEFT LOWER EXTREMITY Left 06/03/2017 Performed by Rebeca Johnson DO at [facility] Cardiac catheterization N/A 09/25/2022 Performed by Bonnie Toledo MD at [facility] CARDIAC CATH LABS CARDIAC SURGERY 2000 3 stents CHOLECYSTECTOMY Coronary angiogram and left ventricular gram/pressure N/A 09/25/2022 Performed by Bonnie Toledo MD at [facility]ATH [facility] ESOPHAGOGASTRODUODENOSCOPY DIAGNOSTIC N/A 01/17/2024 Performed by Jazmine Gutierrez MD at [facility] ESOPHAGOGASTRODUODENOSCOPY DIAGNOSTIC N/A 01/10/2024 Performed by Renuka Angeles MD at [facility] FEMORAL BYPASS 2010 HYSTERECTOMY 2008 abdominal LYSIS RECHECK AND REMOVAL EXTREMITY UPPER Right 04/18/2024 Performed by Rebeca Johnson MD at [facility] PROC RIGHT BRACHIAL ACCESS, LEFT FEMORAL ANGIOGRAM, LYSIS CATHETER PLACEMENT Left 04/17/2024 Performed by Rebeca Johnson DO at [facility] PROC VASCULAR SURGERY 2008 blood clot [...] - Unmet Transportation Needs (10/22/2024) Received from [facility] - Transportation Lack of Transportation (Medical): Yes Lack of Transportation (Non-Medical): Yes Physical Activity: Inactive (10/22/2022) Exercise Vital Sign Days of Exercise per Week: 0 days Minutes of Exercise per Session: 0 min Stress: No Stress Concern Present (10/22/2022) [place] [employer]ational [employer] - Occupational Stress Questionnaire Feeling of Stress : Not at all Social Connections: Socially Isolated (10/22/2022) Social Connection and Isolation Panel [NHANES] Frequency of Communication with Friends and Family: More than three times a week Frequency of Social Gatherings with Friends and Family: More than three times a week Attends Zoroastrian Services: Never Active Member of Clubs or [...] service. I, Dr. Pizano personally performed a kfck-zd-emlp diagnostic evaluation on this patient. I personally [...] 1551 YOVANY Rebolledo 12/31/246 documented in this encounterL[facility] Telephone encounter Note* Telephone Encounter - Vik Vargas NP - 12/21/2024 11:56 AM EDT Requested Prescriptions Signed Prescriptions Disp Refills oxyCODONE-acetaminophen (Percocet) 5-325 MG tablet 120 tablet 0 Sig: Take 1 tablet by mouth every 6 (six) hours if needed for severe pain or moderate pain Authorizing Provider: VIK VARGAS [facility] [id number] Miscellaneous Notes* Telephone Encounter - Vik Vargas NP - 12/21/2024 11:56 AM EDT Requested Prescriptions Signed Prescriptions Disp Refills oxyCODONE-acetaminophen (Percocet) 5-325 MG tablet 120 tablet 0 Sig: Take 1 tablet by mouth every 6 (six) hours if needed for severe pain or moderate pain Authorizing Provider: VIK VARGAS documented in this encounterCitizens Memorial [id number] History of Present illness Narrative* Zach Saravia, DAVID - 12/08/2024 7:02 PM EDTSummary: [...] and IV antibiotic therapy. Recently admitted through [facility] ED with developing infection involving multiple wounds. [...] care of this patient. documented in this encounterLake[facility]08-[facility] Hospital Discharge instructions* Discharge Instructions* Filomena De La Garza, HILDA - 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 - 11/19/2024 4:14 PM EDT Additional medications as directed, you need to call both your primary care and wound care clinic for further evaluation and treatment. * Attachments The following attachments cannot be sent through Care Everywhere. * Hip Pain ([place]) * Chronic Wound: Healing: General Info ([place]oldovan) documented in this encounterBon [facility] History of Present illness Narrative* Erin Stevens RN - 08/17/2024 12:12 PM EDT Patient leaving floor at this time via [facility] via wheelchair. Belongings sent with patient. * Erin Stevens RN - 08/17/2024 11:28 AM EDT Report called to nurse at [facility] at this time. * Erin Stevens RN [...] and assessment were completed at this time. Poultryman walked patient through the medications that would be administered tonight and encouraged patient to ask questions about the medications and therapies. Patient is requesting all of her night medications be given at 1999 including percocet andAmbien. Patient ambulated to the bathroom and back to bed and newspaper writer put iodine on her foot wounds [...] Rodriguez MD - 08/16/2024 6:53 AM EDT [address] , [place], [place], [address] Progress Note Date: 08/16/2024 Patient name: Jonatan [...] artery disease), COPD (chronic obstructive pulmonary disease) ([facility]), Depression, Diabetes mellitus ([facility]), Edema, H/O cardiac catheterization, H/O echocardiogram, Hernia [...] MAG HYDROXIDE-SIMETH 200-200-20 MG/5ML; 80mL. 07/21/24 Yes Omsar Rodriguez MD amLODIPine (NORVASC) 10 MG tablet [...] Shortness of Breath 12/31/22 Yes Patricia Oh, ELECTRIC BLANKET 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 FLOVENT HFA 44 MCG/ACT inhaler Inhale 2 puffs into the lungs 2 times daily 12/18/22 Yes Osmar Rodriguez MD metFORMIN (GLUCOPHAGE) 500 MG tablet Take 1 tablet by mouth 2 times daily (with meals) Patient not taking: Reported on 08/12/2024 08/10/24 Oliva Dunlap, ELECTRIC BLANKET 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 docusate sodium (COLACE) 100 MG capsule Take [...] Rodriguez MD vitamin D (ERGOCALCIFEROL) 1.25 MG (50230 UT) CAPS capsule take 1 capsule by mouth every week Patient not taking: Reported on 08/12/2024 10/22/22 Osmar Rodriguez MD Incontinence Supply Disposable (Biotronics3D INCONTINENCE PADS) MISC 1 each by Does [...] sores have betadine DIAGNOSTICS: Laboratory Testing: See [facility] EMR for lab data Recent Results (from [...] Oral 4x Daily Oliva Dunlap APRN - 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 750mg at 08/15/241921 benzonatate (TESSALON) capsule 200 mg 200 mg Oral TID PRN Oliva Dunlap APRN - CNP 200 mg at 08/14/242006 amoxicillin-clavulanate (AUGMENTIN) 875-125 MG per tablet 1 tablet 1 tablet Oral BID Oliva Dunlap APRN - CNP 1 tablet at 08/15/242020 povidone-iodine (BETADINE) 10 % external solution Topical Daily Oliva Dunalp APRN - CNP Given at 08/15/242109 pioglitazone [...] this chart was generated using voice recognition [employer] dictation software. Although every effort was made to ensure the accuracy of this automated primary education professor, some errors in primary education professor may have occurred. Osmar Rodriguez MD 08/16/2024 6:54 AM * Yanira Aguirre RN - 08/16/2024 5:41 AM EDT Patient declined having her water jug refilled. She told newspaper writer she doesn't drink water. Poultryman refilled patient's coffee cup per request. * Yanira Aguirre RN - 08/15/2024 9:10 PM EDT Poultryman used saline to remove the gauze on patient's feet. Iodine was put on all of her foot wounds and they were left open to air, per order. * Yanira Aguirre RN - 08/15/2024 7:22 PM EDT Vitals and assessment were completed at this time. Poultryman walked patient through the medications that would [...] from the original note were not included. [address] , [place], [place], [address] Progress Note Date: 08/15/2024 Patient name: Jonatan [...] artery disease), COPD (chronic obstructive pulmonary disease) ([facility]), Depression, Diabetes mellitus ([facility]), Edema, H/O cardiac catheterization, H/O echocardiogram, Hernia [...] with Diphenhydramine and antacid 07/21/24 Yes Saran Shoemaekr MD amoxicillin-clavulanate (AUGMENTIN) 875-125 MG per tablet [...] for 90 days. 04/30/24 08/12/24 Yes Osmar Rodirguez MD nitroGLYCERIN (NITROSTAT) 0.4 MG SL tablet [...] Rodriguez MD vitamin D (ERGOCALCIFEROL) 1.25 MG (42966 UT) CAPS capsule take 1 capsule by mouth every week Patient not taking: Reported on 08/12/2024 10/22/22 Osmar Rodriguez MD Incontinence Supply Disposable (Biotronics3D INCONTINENCE PADS) MISC 1 each by Does [...] sores have betadine DIAGNOSTICS: Laboratory Testing: See [facility] EMR for lab data No results found [...] times per day Oliva Dunlap APRN - 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 10 mL at 08/14/242206 sodium chloride flush [...] this chart was generated using voice recognition [employer] dictation software. Although every effort was made to ensure the accuracy of this automated primary education professor, some errors in primary education professor may have occurred. Osmar Rodriguez MD 08/15/2024 6:28 AM * Kimberly Valenzuela RN - 08/15/2024 4:30 AM EDT Pt took dressings off of feet several times during the night. Poultryman put betadine on the sores and rewrapped [...] NL LV COPD (chronic obstructive pulmonary disease) ([facility]) Depression Diabetes mellitus ([facility]) Edema chevy legs feet H/O cardiac catheterization 01/01/2011 H/O echocardiogram 09/03/2019 EF 65% evidence of mild grade I diastolic dysfunction seen Hernia of abdominal wall 2012 History of cardiac cath 03/17/[address] [facility] Michael/Dr. Stephens/Left Radial History of cardiac cath [...] Value Date/Time PHART 7.355 12/13/2022 05:39 AM [id number] 46.8 12/13/2022 05:39 AM PO2ART 57.3 12/13/2022 05:39 AM Q2QZHZFP 88.5 12/13/2022 05:39 AM [id number] 25.5 12/13/2022 05:39 AM PBEA NOT REPORTED [...] Vivar PTA - 08/14/2024 1:56 PM EDT [facility] Inpatient/Observation/Outpatient Rehabilitation Date: 08/14/2024 Patient Name: [...] does not require skilled services due to: Therapist/Cardiopulmonary Technician And Eeg Tech will attempt to see this patient, at [...] 08/14/2024 10:35 AM EDT Physical Therapy Facility/Department: [facility] MED SURG Daily Treatment Note NAME: Jonatan [...] 2L oxygen. Aware of possible transfer to [facility] depending on insurance. She is asking for [...] Condition is stable Treatment plan: Appreciate social media marketing manager-discharge planning-will need SNF PT/OT Up with assistance Imaging: no further imaging studies ordered today Medications: Medications not indicated at this time Medication Monitoring / High Risk Medications: none Chronic wounds of Bilateral Feet Condition is a chronic stable condition Treatment plan: Cancel consult for Dr Newman-out [facility]. Will continue with his POC at this time Scheduled with Dr Colmenares next week, if still here will consult for evaluation Heels off the bed Wound Care: Betadine to wounds daily She is Diabetic -- Refuses to take medications prescribed Imaging: no further imaging studies ordered today Medications: Continue Augmentin Continue Metformin-REFUSES Nutrition status: at risk for malnutrition Cartoon Animator consult initiated I/O Daily weight Monitor Daily [...] Accumulation Location: Extremities (08/13/24736) Acute Illness - Inside Sales Coordinator Strength: Not Performed (08/13/24736) Acute Illness - [...] status: Full Code Disposition: Discharge plan is [facility] Advanced Care Planning documentation: [x] [...] from the original note were not included. [address] [place], [place], [address] Attestation Patient: Jonatan Olivarez Date of Admission: 08/12/2024 10:20 AM Hospital Day # 2 Date of Evaluation: 08/14/2024 I personally evaluated and examined the patient [id number] in conjunction with the PA/JAVA SOFTWARE ENGINEER and agree with the management and dispostition of the patient. Please see the PA/JAVA SOFTWARE ENGINEER's note for full details.My sims findings are: [...] with the plan as outlined in the JAVA SOFTWARE ENGINEER/PA's note Disposition: Discharge plan is pending Please note that this chart was generated using voice recognition [employer] dictation software. Although every effort was made to ensure the accuracy of this automated primary education professor, some errors in primary education professor may have occurred. Osmar Rodriguez MD 08/14/2024 1:10 PM * Rosalinda Adame RN - 08/14/2024 1:53 AM EDT Pt yelling out of room for help. Poultryman entered room, pt in bed yelling at newspaper writer about time my leonard champion call light is on the floor and nobody is coming to help me . Poultryman showed pt the red button on the side of he bed in case this were to happen again. Pt understood. Poultryman cleaned pt up at thistime, changed bed [...] Vivar PTA - 08/13/2024 3:19 PM EDT [facility] Inpatient/Observation/Outpatient Rehabilitation Date: 08/13/2024 Patient Name: [...] does not require skilled services due to: Therapist/Cardiopulmonary Technician And Eeg Tech will attempt to see this patient, at our earliest opportunity. Erika Vivar, AIR TRAFFIC SUPERVISOR Date: 08/13/2024 Cosigned by Joanie Mireles PT at 08/13/2024 4:08 PM EDT * Bea Mireles, PHYSICAL TESTING SUPERVISOR - 08/13/2024 12:47 PM EDT RESPIRATORY ASSESSMENT PROTOCOL Patient Name: Jonatan Phillips [place] Room#: 0301/0301-01 : 1960 Admitting diagnosis: PVD [...] NL LV COPD (chronic obstructive pulmonary disease) ([facility]) Depression Diabetes mellitus ([facility]) Edema chevy legs feet H/O cardiac catheterization 01/01/2011 H/O echocardiogram 09/03/2019 EF 65% evidence of mild grade I diastolic dysfunction seen Hernia of abdominal wall 2012 History of cardiac cath 03/17/[address] [facility]/Dr. Stephens/Left Radial History of cardiac cath [...] Value Date/Time PHART 7.355 12/13/2022 05:39 AM ALI9QHA 46.8 12/13/2022 05:39 AM PO2ART 57.3 12/13/2022 05:39 AM S7SCAQEA 88.5 12/13/2022 05:39 AM UHZ3SQU 25.5 12/13/2022 05:39 AM PBEA NOT REPORTED [...] ____Yes ____No ____Patient Refused * Kirsten Jackson [facility] - 08/13/2024 8:27 AM EDT Images from the original note were not included. [facility] Department of Pharmacy Pharmacy Renal Adjustment [...] - 79 ml/min. Thank you, Kirsten Jackson [facility],08/13/2024,8:26 AM * Rena Loya OT - 08/13/2024 8:10 AM EDT Occupational Therapy Facility/Department: [facility] Occupational Therapy Initial Assessment Name: Jonatan Olivarez : 1960 Date of Service: 08/13/2024 Discharge Recommendations: Continue to assess pending progress, Subacute/Half-Way Facility, Home with assist PRN, Home with [...] artery disease), COPD (chronic obstructive pulmonary disease) ([facility]), Depression, Diabetes mellitus (HCC), Edema, H/O cardiac [...] is a 63 y.o. female, admitted to [facility] post admitting diagnosis of PVD (Peripheral [...] No Referring Practitioner: Oliva Dunlap APRN - FAIBENNE Diagnosis: PVD (Peripheral Vascular Disease) with claudication [...] Level of Assist for Transfers: Independent Active Escalator Operator: No Patient's Escalator Operator Info: son Additional Comments: Pt shares IADL's [...] 08/13/2024 7:38 AM EDT Physical Therapy Facility/Department: [facility] Physical Therapy Initial Assessment Name: [...] Level of Assist for Transfers: Independent Active Escalator Operator: No Patient's Escalator Operator Info: son Additional Comments: Pt shares IADL's [...] muscle mass loss Fluid Accumulation: Mild Extremities Inside Sales Coordinator Strength: Not Performed Nutrition Assessment: Increased energy needs r/t acute injury or trauma, AEB multiple diabetic wounds on feet. History ofweight losses without many actual weights available. Used to be 150# but admits, years ago . Eating mostly once daily at home with use of 2 [place] [address] units vit D and may benefit from [...] Measures: Height: 154.9 cm (5' 1 ) Independence Body Weight (IBW): 105 lbs (48 kg) [...] Used for Energy Requirements: Current Energy (kcal/day): 0449-4017 (28-33) Weight Used for Protein Requirements: Current [...] Nutrition Supplement [address]ch [address], JOE Contact: [phone] * Oliva Dunlap APRN - FABIENNE - [...] Condition is stable Treatment plan: Appreciate social media marketing manager-discharge planning-will need SNF PT/OT Up with assistance [...] Metformin-REFUSES Nutrition status: at risk for malnutrition Cartoon Animator consult initiated I/O Daily weight Monitor Daily [...] status: Full Code Disposition: Discharge plan is Half-Way Facility [facility] Advanced Care Planning documentation: [x] I [...] MIPS PERFORMANCE] HILDA Cortes CNP , HILDA, JAVA SOFTWARE ENGINEER-C Hospitalist Medicine 08/13/2024, 6:54 AM Cosigned by Osmar Rodriguez MD at 08/13/2024 7:12 PM EDT Associated attestation - Osmar Rodriguez MD - 08/13/2024 7:12 PM EDT Images from the original note were not included. [address], [place], [place], [address] Attestation Patient: Jonatan Olivarez Date of Admission: 08/12/2024 10:20 AM Hospital Day # 1 Date of Evaluation: 08/13/2024 I personally evaluated and examined the patient [id number]-lcil in conjunction with the PA/JAVA SOFTWARE ENGINEER and agree with the management and dispostition of the patient. Please see the PA/JAVA SOFTWARE ENGINEER's note for full details.My sims findings are: [...] with the plan as outlined in the JAVA SOFTWARE ENGINEER/PA's note Disposition: Discharge plan is pending Please note that this chart was generated using voice recognition [employer] dictation software. Although every effort was made to ensure the accuracy of this automated primary education professor, some errors in primary education professor may have occurred. Osmar Rodriguez MD 08/13/2024 7:11 PM * Ashley He RN - 08/13/2024 6:38 AM EDT Poultryman to bedside to complete morning assessment. Upon [...] her feel funky. Pt denies needs from newspaper writer at this time. Call light in [...] Birch, PT - 08/12/2024 4:58 PM EDT [facility] Inpatient/Observation/Outpatient Rehabilitation Date: 08/12/2024 Patient Name: Jonatan Olivarez [] Inpatient Acute/Observation [] Outpatient : 1960 [x] Pt refused/declined therapy at this time due to: Pt declining PT eval until morning. Therapist/Cardiopulmonary Technician And Eeg Tech will attempt to see this patient, at our earliest opportunity. SUSANNE BIRCH, PT Date: 08/12/2024 * Darling Welsh, PHYSICAL TESTING SUPERVISOR - 08/12/2024 4:10 PM EDT RESPIRATORY ASSESSMENT [...] wall 2012 History of cardiac cath 03/17/[address] [facility] [place]/Dr. Stephens/Left Radial History of cardiac cath [...] Value Date/Time PHART 7.355 12/13/2022 05:39 AM WAY2QBY 46.8 12/13/2022 05:39 AM PO2ART 57.3 12/13/2022 05:39 AM I4MIYJMV 88.5 12/13/2022 05:39 AM BDA9HAU 25.5 12/13/2022 05:39 AM PBEA NOT REPORTED [...] ____No ____Patient Refused documented in [facility] Discharge instructions* Discharge Instr - DUSTIN* [...] Emergency Contact: Serafin Olivarez Mobile Relation: Child Sack Sewer needed? No Past Surgical History: Past Surgical History: Procedure Laterality Date AORTA SURGERY 05/2016 [facility] CARDIAC CATHETERIZATION heart stent x3 CARDIAC CATHETERIZATION Left 02/25/2018 Right Ulnar/[facility] Michael/ CARDIAC SURGERY CHOLECYSTECTOMY FEMORAL BYPASS HYSTERECTOMY (CERVIX STATUS UNKNOWN) VASCULAR SURGERY blood clot removed after hysto Immunization History: Immunization History Administered Date(s) Administered Influenza A ([id number]) Vaccine PF IM 03/17/2009 Influenza Virus Vaccine [...] type 2 diabetes mellitus, with fat layer exposed([facility]) E11.621, L97.522 Diabetic polyneuropathy associated with type 2 diabetes mellitus ([facility]) E11.42 Angina, class III I20.9 COPD with exacerbation ([facility]) J44.1 Hx of blood clots Z86.718 CAD (coronary artery disease) I25.10 COPD exacerbation ([facility]) J44.1 Community acquired bacterial pneumonia J15.9 COPD (chronic obstructive pulmonary disease) ([facility]) J44.9 Diabetes mellitus ([facility]) E11.9 Hypertension I10 Pneumonia due to infectious organism J18.9 AMS (altered mental status) R41.82 E. coli UTI N39.0, B96.20 Unstable angina ([facility]) I20.0 Acute coronary syndrome ([facility]) I24.9 S/P cardiac cath Z98.890 S/P angioplasty with stent Z95.820 Cellulitis of left lower extremity L03.116 Acute on chronic diastolic heart failure ([facility]) I50.33 Chronic pain of right knee M25.561, [...] Chronic cough R05.3 Chronic obstructive pulmonary disease ([facility]) J44.9 Chronic suppurative otitis media of left ear H66.3X2 Mass of left thigh R22.42 Primary hypertension I10 Left hand pain M79.642 Acute bilateral low back pain with bilateral sciatica M54.42, M54.41 Hyperglycemia R73.9 Hypoxia R09.02 Chronic obstructive pulmonary disease with acute exacerbation ([facility]) J44.1 Chest congestion R09.89 Hernia of abdominal wall K43.9 Acute congestive heart failure, unspecified heart failure type ([facility]) I50.9 Spleen hematoma S36.029A Anemia D64.9 Heart failure ([facility]) I50.9 Elevated hemoglobin A1c R73.09 Generalized abdominal pain R10.84 COPD with acute exacerbation ([facility]) J44.1 Chronic coughing R05.3 Allergic rhinitis J30.9 Acute lower GI bleeding K92.2 Hypertensive emergency I16.1 Laceration of spleen S36.039A Myocardial infarction ([facility]) I21.9 PRES (posterior reversible encephalopathy syndrome) I67.83 Presence of stent in coronary artery Z95.5 Pulmonary emboli ([facility]) I26.99 Pulmonary HTN ([facility]) I27.20 Spleen injury S36.00XA Spondylosis of lumbar spine M47.816 Traumatic skin ulcer, limited to breakdown of skin ([facility]) L98.491 Ulcer of left great toe due to diabetes mellitus ([facility]) E11.621, L97.529 Upper GI bleed K92.2 Spinal stenosis of lumbar region M48.061 Breast cancer screening by mammogram Z12.31 Neuropathy G62.9 Cellulitis L03.90 Dry skin L85.3 Disorder of arteries and arterioles, unspecified I77.9 Closed fracture of pelvis ([facility]) S32.9XXA Closed head injury S09.90XA Closed fracture of nasal bone S02.2XXA Viral infection, unspecified B34.9 Severe obesity ([facility]) E66.01 Postoperative state Z98.890 Numbness R20.0 Laceration [...] 2 diabetes mellitus, with fat layer exposed ([facility]) E11.621, L97.422 Mouth sore K13.79 Acute insomnia [...] MRSA 07/06/13 07/06/13 Oliva Dunlap APRN - 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 03/18/20 Seth Prajapati RN 07/02/2013 wound--right groin [...] Assisted Dressing Assisted Toileting Assisted Feeding Independent Motion Picture Projectionist Assisted Med Delivery whole Wound Care Documentation [...] of days: 612 Wound 08/12/24 Ankle Left;Lateral 8onl3ht (Active) Wound Image 08/12/24 1221 Wound Cleansed Betadine/povidone iodine 08/17/24 0651 Dressing/Treatment Open to air 08/17/24 0651 Wound Assessment Dry 08/17/24 0651 Drainage Amount None (dry) 08/17/24 0651 Odor None 08/17/24 0651 Felicity-wound Assessment Warm;Dry/flaky 08/17/24 0651 Margins Undefined edges 08/12/24 1836 Number of days: 4 Wound 08/12/24 Toe (Comment which one) Right 5hfc0gw (Active) Wound Image 08/12/24 1227 Wound Cleansed Betadine/povidone iodine 08/17/24 0651 Dressing/Treatment Open to air 08/17/24 0651 Wound Assessment Dry 08/17/24 0651 Drainage Amount None (dry) 08/17/24 0651 Odor None 08/17/24 0651 Felicity-wound Assessment Dry/flaky 08/17/24 0651 Margins Undefined edges 08/12/24 1836 Number of days: 4 Wound 08/12/24 Toe (Comment which one) Right 1evm5gu (Active) Wound Cleansed Betadine/povidone iodine 08/17/24 0651 [...] of days: 4 Wound 08/12/24 Heel Right;Plantar 1xmm3jo (Active) Wound Image 08/12/24 1228 Wound Cleansed [...] foot wounds (have been doing it on night order selector). Patient's personal belongings (please select all that are sent with patient): Dentures upper and lower, bag of clothes, cell phone, joint cleaning machine operator, notebook. RN SIGNATURE: CASE MANAGEMENT/SOCIAL WORK SECTION Inpatient Status Date: 08/12/24 Readmission Risk Assessment Score: [facility] RISK OF UNPLANNED READMISSION 2.0 19.7 Total Score Discharging to Facility/ Agency Name: [facility] Address:[place], [place] Fax: Dialysis Facility (if applicable) Name: Address: Dialysis Schedule: Phone: Fax: Meter/Relay Technician/Non Destructive Tester signature: PHYSICIAN SECTION Prognosis: Fair Condition at Discharge: Stable Rehab Potential (if transferring to Rehab): Fair Recommended Labs or Other Treatments After Discharge: na Physician Certification: I certify the above information and transfer of Jonatan Olivarez is necessary for the continuing treatment of the diagnosis listed and that she requires Half-Way Facility for greater 30 days. Update Admission H&P: No change in H&P PHYSICIAN SIGNATURE: documented in this encounterBon [facility] History of Present illness Narrative* Ly Constantino RN - 08/10/2024 6:30 PM EDT Poultryman at bedside to complete evening assessment. Upon entry to room, pt in bed, respirations unlabored while on 2L NC. Vitals obtained and assessment completed, see flow sheet for details. Pt deniesneeds from newspaper writer at this time. Call light in reach. Care is ongoing. * Erika Vivar PTA - 08/10/2024 2:54 PM EDT [facility] Inpatient/Observation/Outpatient Rehabilitation Date: 08/10/2024 Patient Name: [...] does not require skilled services due to: Therapist/Cardiopulmonary Technician And Eeg Tech will attempt to see this patient, at our earliest opportunity. Erika Vivar, AIR TRAFFIC SUPERVISOR Date: 08/10/2024 Cosigned by Susanne Birch, PT at 08/10/2024 3:04 PM EDT * Corie Robertson RN - 08/10/2024 1:10 PM EDT Poultryman completed wound care and placed new wound dressing at this time. * Anjelica Carrington OT - 08/10/2024 10:59 AM EDT Occupational Therapy Facility/Department: [facility] Daily Treatment Note NAME: Jonatan [...] 13 Anjelica Carrington OT * Erika Vivar, AIR TRAFFIC SUPERVISOR - 08/10/2024 10:44 AM EDT Physical Therapy Facility/Department: [facility] Daily Treatment Note NAME: Jonatan Olivarez : 1960 Date of Service: 08/10/2024 Discharge Recommendations: Continue to assess pending progress, Subacute/Half-Way Facility, Home with Home health PT Patient [...] wall 2012 History of cardiac cath 03/17/[address] [facility] [place]/Dr. Stephens/Left Radial History of cardiac cath [...] Value Date/Time PHART 7.355 12/13/2022 05:39 AM WAM1SAJ 46.8 12/13/2022 05:39 AM PO2ART 57.3 12/13/2022 05:39 AM S5IQOVTY 88.5 12/13/2022 05:39 AM BZD8VMK 25.5 12/13/2022 05:39 AM PBEA NOT REPORTED [...] Robertson, DARI - 08/10/2024 7:55 AM EDT Poultryman to bedside to complete morning assessment. Upon [...] and whiteboard updated. Pt denies needs from newspaper writer at this time. Call light in [...] No rashes. No skin lesions. See below 08/06/20243897-Xpzjcexqj-Lwtn Foot/Toes 08/06/2024-Admission--Right Foot/Toes Diagnostic Data: Complete Blood [...] Condition is stable Treatment plan: PT/OT Appreciate Cartoon Animator Imaging: CT Head-negative CT Chest/Abd/Pelvis-see above Medications: LOC DM Condition is stable Treatment plan: A1C-7.2 current 6.8 in 2023 Appreciate Cartoon Animator Imaging: no further imaging studies ordered today Medications: Continue metformin Nutrition status: severe malnutrition Cartoon Animator consult initiated I/O Daily weight Monitor Daily [...] No fluid accumulation (08/07/241130) Acute Illness - Inside Sales Coordinator Strength: Not Performed (08/07/241130) Acute Illness - [...] Full Code Disposition: Discharge plan is home [facility] Advanced Care Planning documentation: [x] I [...] MIPS PERFORMANCE] HILDA Cortes CNP , HILDA, JAVA SOFTWARE ENGINEER-C Hospitalist Medicine 08/10/2024, 6:46 AM Cosigned by Osmar Rodriguez MD at 08/10/2024 6:51 PM EDT Associated attestation - Osmar Rodriguez MD - 08/10/2024 6:51 PM EDT Images from the original note were not included. [address] , [place], [place], [address] Attestation Patient: Jonatan Olivarez Date of Admission: 08/06/2024 1:44 PM Hospital Day # 4 Date of Evaluation: 08/10/2024 I personally evaluated and examined the patient gyzn-ny-brgw in conjunction with the PA/JAVA SOFTWARE ENGINEER and agree with the management and dispostition of the patient. Please see the PA/JAVA SOFTWARE ENGINEER's note for full details.My sims findings are: [...] with the plan as outlined in the JAVA SOFTWARE ENGINEER/PA's note Disposition: Discharge plan is pending Please note that this chart was generated using voice recognition [employer] dictation software. Although every effort was made to ensure the accuracy of this automated primary education professor, some errors in primary education professor may have occurred. Osmar Rodriguez MD 08/10/2024 6:51 PM * Louise Mccoy RN - 08/09/2024 1:40 PM EDT Poultryman to bedside for afternoon assessment. See flowsheets [...] tissue gas. No focal intramuscular abnormality. Joint: Qpqm-su-mpcdnhgf tricompartmental osteoarthritis of the knee joint. No [...] tissue gas. No focal intramuscular abnormality. Joint: Fpic-ez-lmjczedp tricompartmental osteoarthritis of the knee joint. No [...] tissue gas. No focal intramuscular abnormality. Joint: Lqzg-xv-rvnzwmqj tricompartmental osteoarthritis of the knee joint. No [...] tissue gas. No focal intramuscular abnormality. Joint: Ubbm-cy-rafapzhp tricompartmental osteoarthritis of the knee joint. No [...] plaque along the aorta and its branches. 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 Aortic graft [...] artery disease) COPD (chronic obstructive pulmonary disease) ([facility]) Chronic right hip pain Weight loss Oxygen dependent - 2L per baseline Resolved Problems: * No resolved hospital problems. * Patient Active Problem List Diagnosis Date Noted Unstable angina ([facility]) 03/17/2020 Angina, class III 02/25/2018 Diabetic ulcer of toe of left foot associated with type 2 diabetes mellitus, with fat layer exposed([facility]) 01/24/2017 CAD S/P percutaneous coronary angioplasty 08/30/2013 Severe malnutrition 08/07/2024 Left hand pain 06/11/2022 Primary hypertension 05/04/2022 Chronic obstructive pulmonary disease ([facility]) 04/09/2022 Chronic suppurative otitis media of left [...] polyneuropathy associated with type 2 diabetes mellitus ([facility]) 01/24/2017 Ventral hernia 08/30/2013 Fall 08/06/2024 Cellulitis of lower extremity, unspecified laterality 08/06/2024 Oxygen dependent - 2L per baseline 08/06/2024 Acute insomnia 07/27/2024 Diabetic ulcer of left heel associated with type 2 diabetes mellitus, with fat layer exposed ([facility]) 07/21/2024 Mouth sore 07/21/2024 Weight loss 06/24/2024 Closed fracture of pelvis ([facility]) 06/23/2024 Closed head injury 06/23/2024 Closed fracture [...] skin ulcer, limited to breakdown of skin ([facility]) 01/10/2024 Ulcer of left great toe due to diabetes mellitus ([facility]) 01/10/2024 Acute lower GI bleeding 01/09/2024 Upper GI bleed 01/09/2024 Transient alteration of awareness 01/09/2024 Acute lower gastrointestinal hemorrhage 01/09/2024 Lower GI bleed 01/09/2024 Vomiting 01/06/2024 Chronic coughing 08/13/2023 Allergic rhinitis 08/13/2023 COPD with acute exacerbation ([facility]) 07/12/2023 Elevated hemoglobin A1c 06/10/2023 Generalized abdominal pain 06/10/2023 Heart failure ([facility]) 04/12/2023 Anemia 01/28/2023 Acute congestive heart failure, unspecified heart failure type ([facility]) 12/13/2022 Spleen hematoma 12/13/2022 Hypertensive emergency 11/09/2022 Hernia of abdominal wall 10/29/2022 Chest congestion 09/21/2022 Laceration of spleen 09/02/2022 Pulmonary HTN ([facility]) 09/02/2022 Spleen injury 09/02/2022 Chronic obstructive pulmonary disease with acute exacerbation ([facility]) 08/13/2022 Hypoxia 08/07/2022 Acute bilateral low back [...] organism 04/23/2019 COPD (chronic obstructive pulmonary disease) ([facility]) Diabetes mellitus ([facility]) Hypertension Community acquired bacterial pneumonia 04/21/2019 COPD exacerbation ([facility]) 06/06/2018 COPD with exacerbation ([facility]) 06/05/2018 Hx of blood clots CAD (coronary artery disease) Severe obesity ([facility]) 11/05/2017 Laceration of nose 10/22/2017 Postoperative state [...] Santiago MD , M.D. * Vahid Valera, AIR TRAFFIC SUPERVISOR - 08/09/2024 7:52 AM EDT Physical Therapy Facility/Department: [facility] Daily Treatment Note NAME: Jonatan Olivarez : 1960 Date of Service: 08/09/2024 Discharge Recommendations: Continue to assess pending progress, Subacute/Half-Way Facility, Home with Home health PT Patient [...] up in the bed watching TV when newspaper writer entered the room. Pt is A&O x4. Vitals and assessment as charted. Pt rated her pain a 8 out of 10 in bilat feet and legs. Poultryman educated pt that her pain medications is due at 1909 and pt verbalized understanding. Pt denies any further needs at this time. Call light within reach. Bed alarm on. * Vahid Valera PTA - 08/08/2024 9:10 AM EDT [facility] Inpatient/Observation/Outpatient Rehabilitation Date: 08/08/2024 Patient Name: Jonatan Olivarez [x] Inpatient Acute/Observation [] Outpatient : 1960 [x] Pt refused/declined therapy at this time due to: Pt pleasantly declined therapy at this time d/t increased foot pain. Pt stated i'm not doing no physical therapy today . Pt declined exercises inthe chair. Therapist/Cardiopulmonary Technician And Eeg Tech will attempt to see this patient, at [...] tissue gas. No focal intramuscular abnormality. Joint: Fspd-bs-xmjcgrvb tricompartmental osteoarthritis of the knee joint. No [...] tissue gas. No focal intramuscular abnormality. Joint: Ouoi-ku-hpvnpcia tricompartmental osteoarthritis of the knee joint. No [...] tissue gas. No focal intramuscular abnormality. Joint: Yazx-bi-rjtyfdxu tricompartmental osteoarthritis of the knee joint. No [...] tissue gas. No focal intramuscular abnormality. Joint: Rwue-be-rlhrboci tricompartmental osteoarthritis of the knee joint. No [...] plaque along the aorta and its branches. 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 Aortic graft [...] polyneuropathy associated with type 2 diabetes mellitus ([facility]) Primary hypertension Severe malnutrition Tobacco abuse disorder CAD (coronary artery disease) COPD (chronic obstructive pulmonary disease) ([facility]) Chronic right hip pain Weight loss Oxygen dependent - 2L per baseline Resolved Problems: * No resolved hospital problems. * Patient Active Problem List Diagnosis Date Noted Unstable angina ([facility]) 03/17/2020 Angina, class III 02/25/2018 Diabetic ulcer of toe of left foot associated with type 2 diabetes mellitus, with fat layer exposed([facility]) 01/24/2017 CAD S/P percutaneous coronary angioplasty 08/30/2013 [...] polyneuropathy associated with type 2 diabetes mellitus ([facility]) 01/24/2017 Ventral hernia 08/30/2013 Fall 08/06/2024 Cellulitis of lower extremity, unspecified laterality 08/06/2024 Oxygen dependent - 2L per baseline 08/06/2024 Acute insomnia 07/27/2024 Diabetic ulcer of left heel associated with type 2 diabetes mellitus, with fat layer exposed ([facility]) 07/21/2024 Mouth sore 07/21/2024 Weight loss 06/24/2024 Closed fracture of pelvis ([facility]) 06/23/2024 Closed head injury 06/23/2024 Closed fracture [...] 03/18/2024 Erythematous condition, unspecified 03/07/2024 Myocardial infarction ([facility]) 03/02/2024 Presence of stent in coronary artery 03/02/2024 Pulmonary emboli ([facility]) 03/02/2024 Spondylosis of lumbar spine 03/02/2024 Spinal stenosis of lumbar region 03/02/2024 Breast cancer screening by mammogram 03/02/2024 Traumatic skin ulcer, limited to breakdown of skin ([facility]) 01/10/2024 Ulcer of left great toe due to diabetes mellitus ([facility]) 01/10/2024 Acute lower GI bleeding 01/09/2024 Upper GI bleed 01/09/2024 Transient alteration of awareness 01/09/2024 Acute lower gastrointestinal hemorrhage 01/09/2024 Lower GI bleed 01/09/2024 Vomiting 01/06/2024 Chronic coughing 08/13/2023 Allergic rhinitis 08/13/2023 COPD with acute exacerbation ([facility]) 07/12/2023 Elevated hemoglobin A1c 06/10/2023 Generalized abdominal pain 06/10/2023 Heart failure ([facility]) 04/12/2023 Anemia 01/28/2023 Acute congestive heart failure, unspecified heart failure type ([facility]) 12/13/2022 Spleen hematoma 12/13/2022 Hypertensive emergency 11/09/2022 Hernia of abdominal wall 10/29/2022 Chest congestion 09/21/2022 Laceration of spleen 09/02/2022 Pulmonary HTN ([facility]) 09/02/2022 Spleen injury 09/02/2022 Chronic obstructive pulmonary disease with acute exacerbation ([facility]) 08/13/2022 Hypoxia 08/07/2022 Acute bilateral low back [...] organism 04/23/2019 COPD (chronic obstructive pulmonary disease) ([facility]) Diabetes mellitus ([facility]) Hypertension Community acquired bacterial pneumonia 04/21/2019 COPD exacerbation ([facility]) 06/06/2018 COPD with exacerbation ([facility]) 06/05/2018 Hx of blood clots CAD (coronary artery disease) Severe obesity ([facility]) 11/05/2017 Laceration of nose 10/22/2017 Postoperative state [...] Podiatry involved Critical Care Time: 0 Antibiotic [facility] Advanced Care Planning documentation: [x] I [...] the patient's medical record. [DOES NOT SATISFY [facility] PERFORMANCE] Gordo De Santiago MD , M.D. * Quirino Newman DPM - 08/07/2024 11:21 PM EDT Spoke with JAVA SOFTWARE ENGINEER via perfect serve in regards to vascular results. Moderate occlusion of proximal inflow noted bilateral, namely previous fempop bypass left lower. Patient will require vascular consultation and likely intervention in order to faciliate wound healing. Continue with current betadine dressings. * Ly Constantino RN - 08/07/2024 7:15 PM EDT Poultryman at bedside to complete evening assessment. Upon entry to room, pt in bed, respirations unlabored while on 2 L NC. Vitals obtained and assessment completed, see flow sheet for details. Pt denies needs from newspaper writer at this time. Call light in reach. Care is ongoing. * Erika Vivar PTA - 08/07/2024 1:57 PM EDT Physical Therapy Facility/Department: [facility] Daily Treatment Note NAME: Jonatan Olivarez : 1960 Date of Service: 08/07/2024 Discharge Recommendations: Continue to assess pending progress, Subacute/Half-Way Facility, Home with Home health PT Patient [...] plus a pain pill at bedside and newspaper writer obtaining vital signs, hypotensive (see chart) [...] Hand (interosseous) Fluid Accumulation: No fluid accumulation Inside Sales Coordinator Strength: Not Performed Nutrition Assessment: Severe malnutrition [...] Measures: Height: 154.9 cm (5' 0.98 ) Independence Body Weight (IBW): 105 lbs (48 kg) [...] Used for Energy Requirements: Current Energy (kcal/day): 5982-4600 (27-30kcal/d) Weight Used for Protein Requirements: Independence Protein (g/day): 58-67 (1.2-1.4g/d) Method Used for Fluid Requirements: 1 ml/kcal Fluid (ml/day): 6749-0358 Nutrition Diagnosis: Severe malnutrition related to inadequate [...] Supplement, Continue current diet Leyla Holguin Contact: [id number] Cosigned [address], LD at 08/07/2024 11:53 AM EDT * Susanne Luciano, PT - 08/07/2024 9:04 AM EDT Physical Therapy Facility/Department: [facility] Physical Therapy Initial Assessment Name: Jonatan Olivarez : 1960 Date of Service: 08/07/2024 Discharge Recommendations: Continue to assess pending progress, Subacute/Half-Way Facility, Home with Home health PT PT [...] services?: Yes Family/Caregiver Present: No Referring Practitioner: Oliav Dunlap APRN - CNP Referral Date : [...] gauze wrap. * Oliva Dunlap APRN - 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 - 08/07/2024 8:32 AM EDT Images from [...] No rashes. No skin lesions. See below 08/06/20244530-Hmotoylpa-Naay Foot/Toes 08/06/2024-Admission--Right Foot/Toes Diagnostic Data: Complete Blood [...] Condition is stable Treatment plan: PT/OT Appreciate Cartoon Animator Imaging: CT Head-negative CT Chest/Abd/Pelvis-see above Medications: IVF DM Condition is stable Treatment plan: A1C-7.2 current 6.8 in 2023 Appreciate Cartoon Animator Imaging: no further imaging studies ordered today Medications: Start Metformin Nutrition status: severe malnutrition Cartoon Animator consult initiated I/O Daily weight Monitor Daily [...] No fluid accumulation (08/07/241130) Acute Illness - Inside Sales Coordinator Strength: Not Performed (08/07/241130) Acute Illness - Malnutrition Score: 16 (08/07/241130) Malnutrition Status: Severe malnutrition (08/07/241130) I agree with the dietitian's malnutrition assessment. Medical Nutrition Therapy: continue current nutrition therapy and oral supplements [facility] Prophylaxis: DVT: Eliquis Stress Ulcer: PPI Disposition: Shared decision making: All test results, treatment options and disposition options were discussed with the patient today Social determinants of health that may impact management: none Code status: Full Code Disposition: Discharge plan is pending [facility] Advanced Care Planning documentation: [x] I [...] the patient's medical record. [DOES NOT SATISFY [facility] PERFORMANCE] HILDA Cortes CNP , CHENTE STEVENSC Hospitalist Medicine 08/07/2024, 11:47 AM Cosigned by Osmar Rodriguez MD at 08/07/2024 8:32 PM EDT Associated attestation - Osmar Rodriguez MD - 08/07/2024 8:32 PM EDT Images from the original note were not included. [address], [address] Attestation Patient: Jonatan Olivarez Date of Admission: 08/06/2024 1:44 PM Hospital Day # 1 Date of Evaluation: 08/07/2024 I personally evaluated and examined the patient [id number] in conjunction with the PA/JAVA SOFTWARE ENGINEER and agree with the management and dispostition of the patient. Please see the PA/JAVA SOFTWARE ENGINEER's note for full details.My sims findings are: [...] with the plan as outlined in the JAVA SOFTWARE ENGINEER/PA's note Disposition: Discharge plan is pending Please note that this chart was generated using voice recognition [employer] dictation software. Although every effort was made to ensure the accuracy of this automated primary education professor, some errors in primary education professor may have occurred. Osmar Rodriguez MD 08/07/2024 8:29 PM * Mariaelena Marshall, OTR/L - 08/07/2024 8:00 AM EDT Occupational Therapy Facility/Department: [facility] Occupational Therapy Initial Assessment Name: [...] balance Assessment: 63 y/o F admitted to [facility] for cellulitis LE. Patient presents with [...] Learning: None Education Outcome: Verbalized understanding;Demonstrated understanding [facility] - ADL [facility] Daily Activity - Inpatient How much [...] How much help for eating meals?: None [facility] Inpatient Daily [facility]: [facility] T-Scale Score : 40.22 ADL Inpatient [facility] 0-100% Score: 42.8 ADL Inpatient [facility] G-Code Modifier : CK Goals Short Term [...] from the original note were not included. [facility] Department of Pharmacy Pharmacy Renal Adjustment [...] Gonzalez RN - 08/06/2024 7:42 PM EDT Poultryman at bedside to complete evening assessment. Upon entry to room, pt awake and in bed, respirations normal and unlabored while on 2 L via nasal cannula. Vitals obtained and assessment completed, see flow sheet for details. Pt denies needs from newspaper writer at this time. Call light in [...] wall 2012 History of cardiac cath 03/17/[address] [facility] Michael/Dr. Stephens/Left Radial History of cardiac cath [...] Value Date/Time PHART 7.355 12/13/2022 05:39 AM JSG2PDV 46.8 12/13/2022 05:39 AM PO2ART 57.3 12/13/2022 05:39 AM G9MAEHTV 88.5 12/13/2022 05:39 AM JAA3RUM 25.5 12/13/2022 05:39 AM PBEA NOT REPORTED [...] PM EDT [facility] as a direct admit from Dr [...] lives with her son, was just at [facility] for the fall. Noticed wounds on both [...] Call light within reach. [facility] Discharge instructions* Discharge Instr - Activity* Ansuhka Mcgill RN - 08/10/2024 3:47 PM EDT [...] be sent through Care Everywhere. * Cellulitis ([place]) [facility] course Narrative* Oliva Dunlap APRN - CNP - 08/10/2024 1:57 PM EDT Images from the original note were not included. Discharge Summary Jonatan C Cherryfield : 1960 Admit date: 08/06/2024 Discharge date: [...] No rashes. No skin lesions. See below 08/06/20245682-Ugctuabtu-Xkcv Foot/Toes 08/06/2024-Admission--Right Foot/Toes Significant Diagnostic Studies: Lab [...] tissue gas. No focal intramuscular abnormality. Joint: Tkjw-vu-rbdmzohc tricompartmental osteoarthritis of the knee joint. No [...] tissue gas. No focal intramuscular abnormality. Joint: Uyfg-iy-aqbknkxk tricompartmental osteoarthritis of the knee joint. No [...] tissue gas. No focal intramuscular abnormality. Joint: Anja-cw-yquzgajl tricompartmental osteoarthritis of the knee joint. No [...] tissue gas. No focal intramuscular abnormality. Joint: Bxxb-hx-hjyijmek tricompartmental osteoarthritis of the knee joint. No [...] plaque along the aorta and its branches. 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 Aortic graft [...] Problem List Diagnosis Date Noted Unstable angina ([facility]) 03/17/2020 Angina, class III 02/25/2018 Diabetic ulcer of toe of left foot associated with type 2 diabetes mellitus, with fat layer exposed([facility]) 01/24/2017 CAD S/P percutaneous coronary angioplasty 08/30/2013 [...] polyneuropathy associated with type 2 diabetes mellitus ([facility]) 01/24/2017 Tobacco abuse disorder 05/27/2014 Ventral hernia 08/30/2013 Fall 08/06/2024 Cellulitis of lower extremity, unspecified laterality 08/06/2024 Oxygen dependent - 2L per baseline 08/06/2024 Acute insomnia 07/27/2024 Diabetic ulcer of left heel associated with type 2 diabetes mellitus, with fat layer exposed ([facility]) 07/21/2024 Mouth sore 07/21/2024 Weight loss 06/24/2024 Closed fracture of pelvis ([facility]) 06/23/2024 Closed head injury 06/23/2024 Closed fracture [...] 03/18/2024 Erythematous condition, unspecified 03/07/2024 Myocardial infarction ([facility]) 03/02/2024 Presence of stent in coronary artery 03/02/2024 Pulmonary emboli ([facility]) 03/02/2024 Spondylosis of lumbar spine 03/02/2024 Spinal stenosis of lumbar region 03/02/2024 Breast cancer screening by mammogram 03/02/2024 Traumatic skin ulcer, limited to breakdown of skin ([facility]) 01/10/2024 Ulcer of left great toe due to diabetes mellitus ([facility]) 01/10/2024 Acute lower GI bleeding 01/09/2024 Upper GI bleed 01/09/2024 Transient alteration of awareness 01/09/2024 Acute lower gastrointestinal hemorrhage 01/09/2024 Lower GI bleed 01/09/2024 Vomiting 01/06/2024 Chronic coughing 08/13/2023 Allergic rhinitis 08/13/2023 COPD with acute exacerbation ([facility]) 07/12/2023 Elevated hemoglobin A1c 06/10/2023 Generalized abdominal [...] organism 04/23/2019 COPD (chronic obstructive pulmonary disease) ([facility]) Diabetes mellitus ([facility]) Hypertension Community acquired bacterial pneumonia 04/21/2019 COPD exacerbation ([facility]) 06/06/2018 COPD with exacerbation ([facility]) 06/05/2018 Hx of blood clots CAD (coronary artery disease) Severe obesity ([facility]) 11/05/2017 Laceration of nose 10/22/2017 Postoperative state [...] the lungs daily vitamin D 1.25 MG (46793 UT) Caps capsule Commonly known as: ERGOCALCIFEROL [...] Your Medications These medications were sent to [id number] - [place], [place] - [address] - P [phone] - F [phone] [address] [place] [address] amoxicillin-clavulanate 875-125 MG per tablet metFORMIN 500 MG tablet povidone-iodine 10 % external solution Patient Instructions: Activity: activity as tolerated Diet: regular diet Wound Care: none needed Other: na Disposition: Discharge to Home with home health Follow up: Patient will be followed by Osmar Rodriguez MD in 1-2 weeks CORE MEASURES on Discharge (if applicable) FAUSTO/ARB in CHF: NA Statin in VA: NA ASA in VA: NA Statin in CVA: NA Antiplatelet in CVA: NA Total time spent on discharge services: 40 minutes Including the following activities: Evaluation and Management of patient Discussion with patient and/or surrogate about current care plan Coordination with Case Management and/or Non Destructive Tester Coordination of care with Consultants (if applicable) Coordination of care with Receiving Facility Physician (if applicable) Completion of DME forms (if applicable) Preparation of Discharge Summary Preparation of Medication Reconciliation Preparation of Discharge Prescriptions Signed: Oliva Dunlap APRN - FABIENNE, ELECTRIC BLANKET WIRER, JAVA SOFTWARE ENGINEER-C 08/10/2024, 1:57 PM Please note that this chart was generated using voice recognition [employer] dictation software. Although every effort was made to ensure the accuracy of this automated primary education professor, some errors in primary education professor may have occurred. Cosigned by Osmar Rodriguez MD at 08/10/2024 6:52 PM EDT Associated attestation - Osmar Rodriguez MD - 08/10/2024 6:52 PM EDT Images from the original note were not included. [address], [address] Attestation Patient: Jonatan Olivarez Date of Admission: 08/06/2024 1:44 PM Hospital Day # 4 Date of Evaluation: 08/10/2024 I personally evaluated and examined the patient [id number] in conjunction with the PA/JAVA SOFTWARE ENGINEER and agree with the management and dispostition of the patient. Please see the PA/JAVA SOFTWARE ENGINEER's note for full details.My sims findings are: [...] care plan Coordination with Case Management and/or Non Destructive Tester Coordination of care with Consultants (if applicable) [...] this chart was generated using voice recognition [employer] dictation software. Although every effort was made to ensure the accuracy of this automated primary education professor, some errors in primary education professor may have occurred. Osmar Rodriguez MD 08/10/2024 6:51 PM documented in [facility]Bon [facility] Miscellaneous Notes* Telephone Encounter - Lawandajeanette Francis - 08/07/2024 12:37 PM EDT The patient was a no show today. Poultryman unable to LVM requesting patient call back to schedule another appointment. Unable to complete call. documented in this encounterL[facility]-2025 Telephone encounter Note* Telephone Encounter - Lawanda Francis - 08/07/2024 12:37 PM EDT The patient was a no show today. Poultryman unable to LVM requesting patient call back to schedule another appointment. Unable to complete call. [facility]04-18-[facility]25 Miscellaneous Notes* Telephone Encounter - Libertad Vargas MA - 07/17/2024 9:20 AM EDT [facility] - PHARMACY [place]ICATION [place] [address] New referral received by [facility] Medication Management for diabetes. Patient was contacted to schedule appointment at [facility] Medication Management [place] ([facility]). This was my first attempt to reach the patient and was able to schedule the patient on 08/07/24 at [facility] POC. Patient will be asked to bring [facility] Additional Info: Medication List and Blood Glucose Meter, and glucometer Referring provider: Alondra Amado APRNAIDAN documented in this encounterLakeHealth [facility]04-18-2025 Telephone encounter Note* Telephone Encounter - Libertad Vargas MA - 07/17/2024 9:20 AM EDT [facility] - PHARMACY MEDICATION MANAGEMENT [address] [place] [facility] [phone] New referral received by [facility] Medication Management for diabetes. Patient was contacted to schedule appointment at [facility] Medication Management [place] ([facility]). This was my first attempt to reach the patient and was able to schedule the patient on 08/07/24 at [facility] POC. Patient will be asked to bring [facility] Additional Info: Medication List and Blood Glucose Meter, and glucometer Referring provider: YOVANY Tang [facility]10-23-2024 Progress note Author Luis Fernando Strauss [facility] January 22, 2024 8:47pmNote Date/TimeOct2023 7:37pm[place] [address] Hospitalist Progress Note Signed Patient: Jonatan Olivarez MR#: [id number] : 1960 Acct:[id number] Age/Sex: 63 / F Adm Date: 4 Loc: 3T Room: [address] [place] [address] Type: ADM IN Attending Dr: Luis Fernando [...] Documented By: Luis Fernando Strauss MD 4 [id number] Signed By: <Electronically signed by Luis Fernando Strauss MD> 01/22/242046 <Electronically signed by MD IDALMIS Naqvi> 01/22/241938 [facility] Work Phone: [phone]) 995-104610-23-2024 Progress note Author Ziggy Barraza [facility] January 22, 2024 8:36pmNote Date/TimeOctober 2023 8:[address] [address] Progress Note Signed Patient: Jonatan Olivarez MR#: [id number] : 1960 Acct:[id number] Age/Sex: 63 / F Adm Date: 4 Loc: 3T Room: [address] [place] [address] Type: ADM IN Attending Dr: Luis Fernando [...] <Electronically signed by MD Ziggy Barraza> 01/22/242035 [facility] Work Phone: [phone]) 324-828810-23-2024 Consult note Author Artur Guo [facility] January 22, 2024 2:41pmNote Date/TimeOctober 2023 6:[address] [address] Vascular Surgery Consult Note Signed Patient: Jonatan Olivarez MR#: [id number] : 1960 Acct:[id number] Age/Sex: 63 / F Adm Date: 4 Loc: 3T Room: [address] [place] [address] Type: ADM IN Attending Dr: Luis Fernando [...] course summary from her discharge paperwork from [facility].She was admitted for gastrointestinal bleed for which [...] attest to her recent GI bleed at [facility] and does know that she was [...] negative unless noted below or in HPI [facility] Medical History (Updated 01/21/24 @ 11:56 by [...] % (Auto) 73.1 Lymph % (Auto) 16.0 Nelson % (Auto) 7.0 Eos % (Auto) 2.2 Baso % (Auto) 1.7 Nucleat RBC Rel Count 0.1 Neut # (Auto) 5.4 Lymph # (Auto) 1.2 Nelson # (Auto) 0.5 Eos # (Auto) 0.2 [...] 70.9 67.9 Lymph % (Auto) 19.2 19.9 Nelson % (Auto) 6.8 7.9 Eos % (Auto) 2.2 2.5 Baso % (Auto) 0.9 1.8 Nucleat RBC Rel Count 0.2 0.1 Neut # (Auto) 5.0 4.2 Lymph # (Auto) 1.3 1.2 Nelson # (Auto) 0.5 0.5 Eos # (Auto) [...] Ratio Vitamin B12 Folate TSH 3rd Generation [employer] 01/20/24 04:06 Corrected WBC 5.7 Uncorrected WBC Count 5.7 RBC 2.53 L Hgb 7.7 L Hct 23.6 L MCV 93.4 MCH 30.4 MCHC 32.6 RDW 20.9 H Plt Count 237 MPV 7.7 Neut % (Auto) 65.9 Lymph % (Auto) 20.4 Nelson % (Auto) 9.3 Eos % (Auto) 2.9 Baso % (Auto) 1.5 Nucleat RBC Rel Count 0.2 Neut # (Auto) 3.7 Lymph # (Auto) 1.2 Nelson # (Auto) 0.5 Eos # (Auto) 0.2 [...] 398 Folate 6.5 TSH 3rd Generation 3.03 [employer] Com PT 10.4 Seconds (9.0-12.9) 01/19/24 16:42 [...] [facility] [...] dateof consult. I also spoke with our bank representative Dr. Milton rosenberg. The plan will be for a trial of blood thinners and doubling the proton pump inhibitor inhibitor. If she fails this we will place a filter. Documented By: Artur Guo MD 01/20/24 1547 Signed By: <Electronically signed by Artur Guo MD> 01/22/24 1441 <Electronically signed by HILDA Joyce> 01/21/24 0600 [facility] Work Phone: 1(976) 397-250610-22-2024 Progress note Author Luis Fernando Strauss [facility] January 21, 2024 1:37pmNote Date/TimeOctober 2023 12:19pm[place] [address] Hospitalist Progress Note Signed Patient: Jonatan Olivarez MR#: [id number] : 1960 Acct:[id number] Age/Sex: 63 / F Adm Date: 4 Loc: Room: [address] [place] [address] Type: ADM IN Attending Dr: Luis Fernando [...] PCI Reportedly had chest pain at the [facility] prior to arrival. Patient recently [...] <Electronically signed by MD IDALMIS Naqvi> 01/21/24 1212 [facility] Work Phone: 1(676) 712-943310-22-2024 Progress note Author Ziggy Barraza [facility] January 21, 2024 11:18amNote Date/TimeOct2023 11:12[place] [id number] Pulmonology Progress Note Signed Patient: Jonatan Olviarez MR#: [id number] : 1960 Acct:[id number] Age/Sex: 63 / F Adm Date: 4 Loc: Room: [address] [place] [address] Type: ADM IN Attending Dr: Luis Fernando Strauss MD Copies to: ~ Date of Service: 01/21/2024 Subjective Subjective Narrative: Patient is much more awake and alert today. She inquires as to when she can be discharged to home with patient getting all her care in [facility]. Exam Physical Exam Vital Signs: Temp Pulse [...] <Electronically signed by MD Ziggy Barraza> 01/21/24 1111 [facility] Work Phone: 1(308) 407-266010-21-2024 Consult note Author Natalia Murrell [facility] January 20, 2024 2:48pmNote Date/TimeOct2023 2:40[place] [address] Cardiology Consult Note Signed Patient: Jonatan Olivarez MR#: [id number] : 1960 Acct:[id number] Age/Sex: 63 / F Adm Date: 4 Loc: Room: [address] [place] [address] Type: ADM IN Attending Dr: Luis Fernando [...] was recently evaluated for GI bleed in [place] as described in the EMR Patient has known coronary artery disease with previous PCI's details of which are unavailable and recent heart catheterization 8 to 9 months ago with no intervention in [place]. Patient is a very poor historian, falling [...] procedures were greater than 12 months ago. [facility] Medical History (Updated 01/20/24 @ 14:47 by [...] # (Auto) 1.2 1.3 1.2 (1.00-4.8) x10E3/uL Nelson # (Auto) 0.5 0.5 0.5 (0.0-0.8) x10E3/uL Eos # (Auto) 0.2 0.2 0.2 (0.0-0.45) x10E3/uL Baso # (Auto) 0.1 0.1 0.1 (0.0-0.2) x10E3/uL 01/20/24 Range/Units 04:06 RBC 2.53 L (3.60-5.00) X10E6/uL Hgb 7.7 L (11.8-15.4) g/dL Hct 23.6 L (34.0-46.4) % Plt Count 237 (150-450) x10E3/uL Neut # (Auto) 3.7 (1.8-7.7) x10E3/uL Lymph # (Auto) 1.2 (1.00-4.8) x10E3/uL Nelson # (Auto) 0.5 (0.0-0.8) x10E3/uL Eos # [...] ,000 ml @ 100 mls/hr IV .Q10H [facility] Rx#:[id number] Oral 150 / 150 150 / 350 [...] Code(s): I25.10 - Atherosclerotic heart disease of [place] coronary artery without angina pectoris (2) Hypotension: [...] <Electronically signed by Natalia Murrell DO> 01/20/24 1200 [facility] Work Phone: 1(477) 798-964710-21-2024 Consult note Author Ziggy Barraza [facility] January 20, 2024 2:09pmNote Date/TimeOct2023 11:57[place] [address] Pulmonology Consult Note Signed Patient: Jonatan Olivarez MR#: [id number] : 1960 Acct:[id number] Age/Sex: 63 / F Adm Date: 4 Loc: Room: [address] [place] [address] Type: ADM IN Attending Dr: Luis Fernando [...] This is the patient's first visit to [facility] with patient living in [place] and reportedly getting some of her care in [facility]. Patient reportedly had been recently discharged from hospitalization in [place] with a bleeding ulcer. The patient also [...] were remote and confirms recent hospitalization at [facility] forreported GI bleeding. She thinks she is at the [facility] but does report it is 2023. Review of Systems Review of Systems All other systems reviewed & are negative unless noted below or in HPI (though patient is poor historian) [facility] Medical History (Updated 01/19/24 @ 23:00 by [...] 01/19/24 CT/CT angio chest PE protocol: f ([id number]) CT/CT abdomen pelvis w con: f CLINICAL [...] * Agree with obtaining prior records from [facility] regarding concerns for gastrointestinal bleeding * [...] <Electronically signed by MD Ziggy Barraza> 01/20/24 3843 [facility] Work Phone: 1(437) 889-292310-21-2024 Progress note Author Luis Fernando Strauss [facility] January 20, 2024 12:32pmNote Date/TimeOct2023 11:42[place], [place] [address] Hospitalist Progress Note Signed Patient: Jonatan Olivarez MR#: [id number] : 1960 Acct:[id number] Age/Sex: 63 / F Adm Date: 4 Loc: Room: [address] [place] [address] Type: ADM IN Attending Dr: Luis Fernando [...] She was just discharged 2days ago from [facility] for upper GI ulcers from what I [...] PCI Rep[facility]. Patient recently had stents placed. Was also hypotensive on presentation. CT of the chest did demonstrate PE. Patient would likely have contraindication to starting anticoagulation given recent gastric ulcers. Will obtain discharge summary for further understanding of findings at [facility] 2 days ago. -Hold off on anticoagulation [...] mg daily only -Obtain medical records from [facility] -Monitor CBC closely -Continue subcu heparin as [...] signed by Luis Fernando Strauss MD> 01/20/24 1234 [facility] Work Phone: [phone]) 971-631610-14-2024 Miscellaneous Notes* Telephone Encounter - Neema Myles [...] - 01/13/2024 3:12 PM EDT 1st attempt: Poultryman contacted patient's friend, Kimmie Posada, (NOT ON HIPAA) and informed them thatwe have received a request from clinical staff to schedule an outpatient neurology follow up appointment with our clinic and offered to do so. Kimmie stated that they will call us back at another time to do, as she is currently admitted to [facility] because of a blood clot - Kimmie has patient's cell phone at this time. Poultryman informed patient that their referral is valid for up to one year, so they are able to give us a call at any time within that year to schedule - patient expressed understanding. documented in this encounterLake[facility]10-14-2024 Telephone encounter Note* Telephone Encounter - Neema [...] clinic visit. Best Regards, Boaz Bender MD [employer] [id number] Telephone encounter Note* Telephone Encounter - Wendy Woods - 01/13/2024 3:12 PM EDT 1st attempt: Poultryman contacted patient's friend, Kimmie DorisLaurelEliezer, (NOT ON HIPAA) and informed them thatwe have received a request from clinical staff to schedule an outpatient neurology follow up appointment with our clinic and offered to do so. Kimmie stated that they will call us back at another time to do, as she is currently admitted to [facility] because of a blood clot - Kimmie has patient's cell phone at this time. Poultryman informed patient that their referral is valid for up to one year, so they are able to give us a call at any time within that year to schedule - patient expressed understanding. [facility] [id number] Miscellaneous Notes* Telephone Encounter - SHANTANU Rosenbaum [...] Please schedule EGD 8 weeks from 01/10/24 TTH/[place] ASA 4 MAC Order in * Telephone [...] cc'ed you FYI. Thanks documented in this encounterLake[facility]10-14-2024 Telephone encounter Note* Telephone Encounter - SHANTANU Rosenbaum - 01/13/2024 1:29 PM EDT ----- Message from USHA Mauricio sent at 01/13/2024 1:24 PM EDT ----- Regarding: Hospital follow-up Patient was seen in the hospital with upper GI bleed. Status post EGD with Dr. Angeles. Please schedule her for repeat EGD in [address] Angeles [facility]10-14-2024 Telephone encounter Note* Telephone Encounter - Irena Vallejo CMA - 01/13/2024 1:29 PM EDT Please schedule EGD 8 weeks from 01/10/24 TTH/FL ASA 4 MAC Order in [employer]10-14-2024 Telephone encounter Note* Telephone Encounter - Stacy Ganllo - 01/13/2024 1:29 PM EDT Left a message with my name and call back number. [facility] Telephone encounter Note* Telephone Encounter - Jazmine Gutierrez MD - 01/13/2024 1:29 PM EDT Just FYI: Repeat EGD on 01/16(due to slight hemoglobin drop) showed clean based antral ulcers. Clips are not in place anymore. Gastric biopsies were taken. Patient will still need repeat EGD in [address] Angeles. Please schedule. , I cc'ed you FYI. Thanks [facility] Work Phone: 1([phone]) [phone] Hospital Discharge instructions* Discharge Instructions* Jorge Cortez [...] sent through Care Everywhere. * Fall Prevention (Moldovan) * Low Back Contusion (Moldovan) documented in [facility] [employer] Work Phone: [phone]) 589-699501-27-2023 History and physical note* YOVANY Owen - [...] Laterality: N/A; Surgeon: Pedrito Pickett MD; Location: [facility] ENDOSCOPY FEMORAL BYPASS Left HYSTERECTOMY The [...] Body mass index is 25.51 kg/m . [facility] Ms. Olivarez is a well nourished and [...] Tobacco Cessation Referral due to residing in [place]. Spent 3-5 minutes counseling on this topic. [...] check Electronically Signed By: YOVANY Shaver [facility], Division of General & Gastrointestinal Surgery [address]th Floor [place], [address] [facility] [address], [place] [address] Office 05/04/2022 8:34 AM [facility]01-27-2023 History and physical note* YOVANY Owen [...] Tobacco Cessation Referral due to residing in [place]. Spent 3-5 minutes counseling on this topic. [...] check Electronically Signed By: YOVANY Shaver [facility], Division of General & Gastrointestinal Surgery 11th Floor [place], [address] [place] [address], [place] [id number] Office 05/04/2022 8:34 AM documented in this encounterUC [facility] Hospital01-27-2023 Instructions* Patient Instructions* YOVANY Owne - 04/27/2022 2:00 PM EST Tobacco Cessation [...] and increase the risk of infection. THE [place] TOBACCO QUIT LINE ( ) The hotline is available to uninsured [place], Medicated recipients, women and members of the [place] Tobacco Collaborative. Provides expert advice and support, personalized Quit plan and self-help materials, and free nicotine patches. Hours are Saturday-Saturday 9am - 11pm, Saturday and Saturday 10:30am - 6:30pm, Voicemail services are available 22/10 [facility] - [facility]essation [facility] is a pharmacist-run physician-supervised clinic providing consultation and support services to those thinking about or who are ready to quit nicotine use. Call [phone](Quit) for an appointment. ONLINE QUIT GUIDES & RESOURCES [place] Cancer Society: Guide to Quitting Smoking http://www.cancer.org/Healthy/StayAway fromTobacco/GuidetoQuittingSmoking/index Quit line for resources or to talk with a counselor near you [place] Heart Association http://www.heart.org/HEARTORG/GettingHealthy/ QuitSmoking/Quit- Smoking_[facility]_001085_ SubHomePage.jsp [place] Lung Association http://www.lungusa.org/stop-smoking/how-to-quit/ http://www.ffsonline.org or call 601-998-1267 National Cancer Nocatee: Smokefree.gov www.smokefree.gov Smokefree QuitGuide Smartphone Application Quit line Center for Disease Control Prevention www.CDC.gov/tobacco [place] Academy of Family Physicians: Free Patient Education Materials http://www.aafp.org/online/en/home/clinical/ publichealth/tobacco/resources.html The Department of Health and Human Services https://BeTobaccoFree.gov documented in this [facility]07-08-2022 NotePROCEDURE: [employer] Signa HDXT 1.5 Sagittal T1, T2, STIR [...] signed by Dwight Goel on 10/06/2021 1337[facility]04-20-2022 History and physical note* Leighton Tabares [...] using Monitored Anesthesia Care. Pedrito Pickett MD [facility]04-20-2022 History and physical note* Leighton Tabares [...] Care. Pedrito Pickett MD documented in this encounterUC [facility] Hospital12-19-2021 Hospital course Narrative* Caren Mera MD - 03/19/2021 1:16 PM EST Physician Discharge Summary Caren Mera MD Patient ID: Jonatan Olivarez [id number] 1960 Admission date: 03/17/2021 Discharge date: 03/19/2021 Admitting Physician: No att. providers found Primary Care Physician: Osmar Rodriguez MD Primary Discharge Diagnoses: Patient Active Problem List Diagnosis Date Noted Unstable angina ([facility]) 03/17/2020 Angina, class III ([facility]) 02/25/2018 Diabetic ulcer of toe of left foot associated with type 2 diabetes mellitus, with fat layer exposed([facility]) 01/24/2017 CAD S/P percutaneous coronary angioplasty 08/30/2013 Mild malnutrition ([facility]) 02/22/2021 Diabetic polyneuropathy associated with type 2 diabetes mellitus ([facility]) 01/24/2017 Ventral hernia 08/30/2013 Acute on chronic diastolic heart failure ([facility]) 03/18/2021 Cellulitis of left lower extremity 02/21/2021 S/P cardiac cath 03/18/2020 S/P angioplasty with stent 03/18/2020 Acute coronary syndrome ([facility]) 03/17/2020 E. coli UTI 07/20/2019 AMS (altered mental status) 07/18/2019 Acute on chronic respiratory failure with hypercapnia ([facility]) 07/18/2019 Acute on chronic respiratory failure with hypoxemia ([facility]) 04/23/2019 Pneumonia due to infectious organism 04/23/2019 COPD (chronic obstructive pulmonary disease) ([facility]) Diabetes mellitus ([facility]) Hypertension Community acquired bacterial pneumonia 04/21/2019 COPD exacerbation ([facility]) 06/06/2018 COPD with exacerbation ([facility]) 06/05/2018 Acute respiratory failure with hypoxia and hypercapnia ([facility]) 06/05/2018 Hx of blood clots CAD (coronary artery disease) Tobacco abuse counseling 05/27/2014 Tobacco abuse disorder 05/27/2014 Atherosclerosis of artery of extremity with intermittent claudication ([facility]) 05/27/2014 Dizziness 05/27/2014 Intolerance of drug 05/27/2014 Atherosclerosis of both carotid arteries 05/27/2014 Hypothyroidism 05/27/2014 Abnormal nuclear stress test 01/22/2013 Smoking greater than 40 pack years 01/22/2013 Claudication in peripheral vascular disease ([facility]) 11/06/2012 Stable angina ([facility]) 11/06/2012 Additional Diagnoses: Diagnosis Date Asthma Back problem Bulging discs (2 or 3), 1 cracked & 1 blackened discs CAD (coronary artery disease) stents x 3; BMS to LAD 12/2010;SPARKLE to RCA 01/2011, NL LV COPD (chronic obstructive pulmonary disease) ([facility]) Depression Diabetes mellitus ([facility]) Edema chevy legs feet H/O cardiac catheterization 01/01/2011 H/O echocardiogram 09/03/2019 EF 65% evidence of mild grade I diastolic dysfunction seen Hernia of abdominal wall 2013 History of cardiac cath 03/17/[address] [facility] Michael/Dr. Stephens/Left Radial History of cardiac cath [...] LOWER EXTREMITY VENOUS BILATERAL Result Date: 03/17/2021 [facility] Lower Extremities DVT Study Procedure Patient Name [place] Date of Study 03/17/2021 JONATAN C Date of 1960 Gender Female Age 60 year(s) Race Room Number 01A Corporate ID # [id number] Patient MR # [id number] Blood Donor Recruiter Supervisor Corrine Peterson Interpreting Physician Jose Mercer MD Referring Nurse Fredy Billingsley, Referring Physician Practitioner ELECTRIC BLANKET WIRER-FABIENNE Procedure Type of Study: Veins: Lower Extremities [...] ms QTc Calculation (Bazett) 403 ms P [place] 62 degrees R [place] 78 degrees T [place] 51 degrees Basic Metabolic Panel Collection Time: [...] # 1.26 1.10 - 3.70 k/uL Absolute Nelson # 0.46 0.10 - 1.20 k/uL Absolute [...] # 1.29 1.10 - 3.70 k/uL Absolute Nelson # 0.48 0.10 - 1.20 k/uL Absolute [...] NEGATIVE NEGATIVE Ketones, Urine NEGATIVE NEGATIVE Specific [place], UA 1.020 1.010 - 1.020 Urine Hgb [...] 1.05 (L) 1.10 - 3.70 k/uL Absolute Nelson # 0.48 0.10 - 1.20 k/uL Absolute [...] 0.94 (L) 1.10 - 3.70 k/uL Absolute Nelson # 0.39 0.10 - 1.20 k/uL Absolute [...] Your Medications These medications were sent to [address] [facility] - [phone] - F [phone] [address] [facility] [address] doxycycline hyclate 100 MG tablet furosemide 20 [...] M.D. 03/19/2021 1:17 PM documented in this [facility] centerLezh[facility] Entertainment Work Phone: 1(563) 890-579612-17-2021 Note [facility] Lower Extremities DVT Study Procedure Patient Name SHER Date of Study 03/17/2021 JONATAN Phillips Date of 1960 Gender Female Age 60 year(s) Race Room Number 01A Corporate ID # [id number] Patient MR # [id number] Blood Donor Recruiter Supervisor Corrine Peterson Interpreting Physician Jose Mercer MD Referring Nurse Fredy Billingsley, Referring Physician Practitioner ELECTRIC BLANKET WIRER-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 Procedure Type of Study: Veins: Lower Extremities [...] Ankle !Yes !Yes !None (more content not included)...[facility] 02-09-2021 Hospital Discharge instructions* Instructions* Zach Bocanegra PA-C - 02/09/2021 Ice to affected area Tylenol Motrin for pain if needed Gentle range of motion Plenty of fluids Rise from seated position slowly See your doctor for recheck * Attachments The following attachments cannot be sent through Care Everywhere. * Contusion (Moldovan) * Head Injury: Closed: General Info (Moldovan) documented in this encounterPike Community HospitalJoyhound Work Phone: [phone]) 176-340206-25-2020 Evaluation note Includes: Assessments for all patient encounters Findings Encounter Date Depressive disorder Established Patie nt with Leah Short LISWS 09/24/2019 Generalized anxiety disorder Establis hed Patient with Leah Short [facility] 09/24/2019 M54.5 - Low back pain Medical Establishe d Patient with Shawna Holliday [facility] 09/24/2019 Obesity due to excess calories Medical E stablished Patient with Shawna Holliday [facility] 09/24/2019 Z68.25 - Body mass index (BM I) 25.0-25.9, adult Medical Established Patient with Shawna Holliday 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 09/24/2019 Depressive disorder Telebehavioral He alth with Leah Short LISWS 09/15/2019 Generalized anxiety disorder [facility] with Leah Short LISWS 09/15/2019 Depressive disorder Telebehavioral He alth with Leah Short [facility] 08/26/2019 Generalized anxiety disorder [facility] with Leah Arroyo LISWS 08/26/2019 Z68.37 - Body mass index (BM I) 37.0-37.9 adult Medical Established Patient with Vahid Breweren 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 05/01/2019 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 04/14/2019 F41.1 - Generalized anxiety disorder Established Patient with Zach Grimaldo [facility] 04/14/2019 Obesity due to excess calories Medical E stablished Patient with Vahid Angelita 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 04/14/2019 Z68.36 - Body mass index (BM I) 36.0-36.9 adult Medical Established Patient with Vahid Angelita 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 04/14/2019 Obesity due to excess calories Medical E stablished Patient with Vahid Angelita 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 03/20/2019 Z68.36 - Body mass index (BM I) 36.0-36.9 adult Medical Established Patient with Vahidchristiano Breweren 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 03/20/2019 Acute atopic conjunctivitis [Acute atopic conjunctivitis left eye] Medical Established Patient with Elena King [facility] 03/03/2019 Acute sinusitis Medical Established Patient with Elena King 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 03/03/2019 Body mass index [Body mass i ndex (BMI) 35.0-35.9 adult] Medical Established Patient with Elena King [facility] 03/03/2019 Generalized anxiety disorder Establis hed Patient with Zach Grimaldo [facility] 02/19/2019 Nicotine dependence Established Patie nt with Zach Grimaldo [facility] 02/19/2019 Persistent depressive disord er (dysthymia) Established Patient with Zach Grimaldo [facility] 02/19/2019 Body mass index Medical Established Patient with Vahid Angelita 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 02/19/2019 Generalized anxiety disorder Medical Est ablished Patient with Vahid Angelita 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 02/19/2019 Lumbago Medical Established Patient with Vahid Angelita 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 02/19/2019 Lumbar radiculopathy Medical Established Patient with Vahid Angelita 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 02/19/2019 Obesity due to excess calories Medical E stablished Patient with Vahid Angelita 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 02/19/2019 Body mass index Medical Established Patient with Vahid Angelita 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 01/22/2019 Obesity due to excess calories Medical E stablished Patient with Vahid Angelita 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 01/22/2019 Body mass index [Body mass i ndex (BMI) 35.0-35.9 adult] Medical Established Patient with Elena Malik [facility] 01/12/2019 Diabetes Risk Test Score was three score 01/12/2019 Medical Established Patient with Elena Malik [facility] 01/12/2019 Fagerstrom Score was 0 01/12/2019 Medica l Established Patient with Elena Malik [facility] 01/12/2019 Limb pain of shoulder region Medical Est ablished [facility]2019 Obesity due to excess calories Medical E stablished Patient with Elena Malik [facility] 01/12/2019 PHQ-9: total score was 18 01/12/2019 Med ical Established [facility] 01/12/2019 Assess bronchitis Medical Established Patient with Vahid Nagy [facility] 12/11/2018 Irreducible ventral hernia Medical Estab lished Patient with Vahid Nagy [facility] 12/11/2018 Obesity due to excess calories Medical E stablished Patient with Vahid Nagy [facility] 12/11/2018 Z68.32 - Body mass index (BM I) 32.0-32.9 adult Medical Established Patient with Vahid Nagy [facility] 12/11/2018 Body mass index Medical Established Patient with Vahid Nagy [facility] 10/30/2018 Assess dermatitis Medical Established Patient with Vahid Nagy [facility] 09/30/2018 Assess urinary tract infection Medical E stablished Patient with Vahid Nagy [facility] 09/30/2018 Body mass index Medical Established Patient with Vahdi Nagy [facility] 08/27/2018 Obesity due to excess calories Medical E stablished Patient with Vahid Nagy [facility] 08/27/2018 F17.210 - Nicotine dependenc e, cigarettes, uncomplicated BH Established Patient with Zachernestina Grimaldo [facility] 07/28/2018 F34.1 - Dysthymic disorder Establishe d Patient with Zach Grimaldo [facility] 07/28/2018 F41.1 - Generalized anxiety disorder Established Patient with Zach Grimaldo [facility] 07/28/2018 Assess diabetes mellitus Medical Establi shed Patient with Vahid Breweren [facility] 07/28/2018 Assess generalized anxiety disorder [facility] иван Established Patient with Vahidchristiano Breweren [facility] 07/28/2018 Assess lumbago Medical Established Patient with Vahid Nagy [facility] 07/28/2018 Assess perennial allergic rh initis with seasonal variation Medical Established Patient with Vahid Angelita [facility] 07/28/2018 Body mass index Medical Established Patient with Vahid Nagy [facility] 07/28/2018 Obesity due to excess calories Medical E stablished Patient with 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 07/28/2018 Assess tobacco abuse Medical Established Patient with 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 06/27/2018 Assessment of chronic lower back pain Me dical Established Patient with 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 06/27/2018 Obesity due to excess calories Medical E stablished Patient with Vahid Nagy CNP 06/27/2018 Obesity due to excess calories Medical E stablished Patient with 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 05/30/2018 [facility] Work Phone: 1([phone]) 206-305101-26-2020 History of Present illness Narrative* Sowmya Llanes [...] I am I being a bitch when market news reporter entered to give timed medicationa * Gina [...] NL LV COPD (chronic obstructive pulmonary disease) ([facility]) Depression Diabetes mellitus (HCC) Edema chevy legs [...] Results Component Value Date PHART 7.332 04/23/2019 JBH4BHY 51.2 04/23/2019 PO2ART 61.2 04/23/2019 [id number] 89.6 04/23/2019 POQ8ZSP 26.5 04/23/2019 PBEA NOT REPORTED 04/23/2019 VITALS [...] Carb Control diet but just stares at newspaper writer and states I reallydon't care. Will [...] Intake/Output Summary (Last 24 hours) at 04/25/2019 0970 Last data filed at 04/25/2019 0597 Gross per 24 hour Intake 500 ml [...] 04/24/2019 3:36 PM EST Update Oliva Tristan JAVA SOFTWARE ENGINEER of pts elevated BP. * Susie Batista [...] M.D. 04/24/2019 7:01 AM * Berta Almanzar, [facility] - 04/24/2019 2:27 AM EST RESPIRATORY ASSESSMENT PROTOCOL Patient Name: Jonatan Phillips [place] Room#: I305/I305-01 : 1960 Admitting diagnosis: Community acquired bacterial pneumonia [J15.9] Medical History: Past Medical History: Diagnosis Date Asthma Back problem Bulging discs (2 or 3), 1 cracked & 1 blackened discs CAD (coronary artery disease) stents x 3; BMS to LAD 12/2010;SPARKLE to RCA 01/2011, NL LV COPD (chronic obstructive pulmonary disease) ([facility]) Depression Diabetes mellitus ([facility]) Edema chevy legs feet H/O cardiac catheterization [...] Results Component Value Date PHART 7.332 04/23/2019 HQU7HNT 51.2 04/23/2019 PO2ART 61.2 04/23/2019 [id number] 89.6 04/23/2019 YJR9MRM 26.5 04/23/2019 PBEA NOT REPORTED 04/23/2019 Blood [...] sleep. Lights turned off and informed patient newspaper writer will be in around 2100 for [...] 2.5L at this time. * Bea Mireles, PHYSICAL TESTING SUPERVISOR - 04/23/2019 1:08 PM EST RESPIRATORY ASSESSMENT [...] NL LV COPD (chronic obstructive pulmonary disease) ([facility]) Depression Diabetes mellitus ([facility]) Edema chevy legs feet H/O cardiac catheterization [...] Results Component Value Date PHART 7.332 04/23/2019 IWI2FTD 51.2 04/23/2019 PO2ART 61.2 04/23/2019 O2ANDRZL 89.6 04/23/2019 ICN0FSW 26.5 04/23/2019 PBEA NOT REPORTED 04/23/2019 Blood [...] 12:28 PM EST Speech Language Pathology Facility/Department: [facility] ICU CLINICAL BEDSIDE SWALLOW TREATMENT AND [...] Normal in all situations Treatment Plan Requires BROACH GRINDER Intervention: No D/C Recommendations: Home independently Recommended [...] Patient Education Response: Verbalizes understanding Therapy Time BROACH GRINDER Individual Minutes Time In: 1205 Time Out: [...] regular diet, thin liquids. Katelyn Tubbs M.A. CF-BROACH GRINDER BERTRAND Ceron 04/23/2019 12:28 PM * Meredith [...] being hungry for 2-3 days. Seen by BROACH GRINDER, regular with thin OK. UBW almost 200#. [...] 5. Fluid Accumulation-No significant fluid accumulation, 6. Inside Sales Coordinator Strength-Not measured Nutrition Risk Level: Low, Moderate [...] % Weight Change: , weight gain trend Independence Body Wt: 105 lb (47.6 kg), % Independence Body 185% BMI Classification: BMI 35.0 - [...] Pertinent Labs, Patient/Family Education, I&O Contact Number: [phone] * Brit Batista RN - 04/23/2019 10:21 [...] Tobacco abuse COPD (chronic obstructive pulmonary disease) ([facility]) Diabetes mellitus ([facility]) Hypertension Resolved Problems: * No resolved hospital [...] home when medically stable. Patient resides in [place] and her adult son lives with her. Patient uses home O2 and a nebulizer for assistance. Patient also has a cane which she uses as she needs to. Patient does her own cooking and her son assists her with the housekeeping. Patient does not drive and uses the local [employer] transportation. PCP is Vahid Calderón CNP. Patient denies needing assistance with paying for her medications and reports that she does not even have a copay with any of her current medications. Discharge plan is home when medically stable. Patient would like a referral to be made for Meals onee program. Referral placed to [facility] Commission on Aging via telephone voicemail message for meals program. Patient is a 'Full Code' status. Would like information on executing Advanced Directives. [facility]. Patient states that she has not used home health care in the past but is open to this as the doctorthinks it necessary. Provider list left for her review. ADMINISTRATIVE SUPPORT CLERK to monitor and assist wit discharge planning as needs arise. ELISSA Barbosa 04/22/2019 * Laurie Velasquez RN - 04/22/2019 12:09 PM EST SonJavier called and updated on ICU transfer and patient condition. * Katelyn Tubbs SLP - 04/22/2019 12:01 PM EST Speech Language Pathology Facility/Department: [facility] ICU CLINICAL BEDSIDE SWALLOW EVALUATION NAME: [...] Normal in all situations Treatment Plan Requires BROACH GRINDER Intervention: Yes Duration/Frequency of Treatment: x1 follow-up [...] Patient Education Response: Verbalizes understanding Therapy Time BROACH GRINDER Individual Minutes Time In: 1000 Time Out: 1025 Minutes: 25 ST recommends a one-time follow-up for meal assessment d/t pt's medical condition and risk factors associated with dysphagia. ST recommends regular, thin diet and x1 follow-up for meal assessment to confirm pt's tolerance of this diet. Katelyn Tubbs M.A. CF-BROACH GRINDER BERTRAND Ceron 04/22/2019 12:06 PM * Laurie [...] called out stating I have a headache. Poultryman informed patient that there was still an hour to go before being able to given PRN motrin. Patient stated that she felt miserable and requested something else. Poultryman asked if it was just her headache but patient stated it was her legs and armsthat hurt and she felt like she was going to get sick. Page out to Dr. De Santiago. * Blaise Darling, PHYSICAL TESTING SUPERVISOR - 04/21/2019 10:36 PM EST RESPIRATORY ASSESSMENT [...] Results Component Value Date PHART 7.262 06/05/2018 YHI5DDO 57.5 06/05/2018 PO2ART 60.2 06/05/2018 O2SLIHUT 86.9 06/05/2018 PFG0LMY 25.3 06/05/2018 PBEA NOT REPORTED 06/05/2018 Blood [...] Will continue to monitor. documented [facility] this [facility] Work Phone: 1(532) 919-521201-26-2020 Hospital course Narrative* Ziggy Smith MD - 04/26/2019 12:08 PM EST Ziggy Smith M.D. Internal Medicine Discharge Summary Patient ID: Jonatan Olivarez [id number] Admission date: 04/21/2019 Discharge date: 04/26/2019 Admitting Physician: Gordo De Santiago MD Primary Care Physician: Vahid Nagy, ELECTRIC BLANKET 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 Primary Discharge Diagnoses: Community acquired bacterial pneumonia [...] obstructive pulmonary disease) (HCC) Depression Diabetes mellitus ([facility]) Edema chevy legs feet H/O cardiac catheterization [...] Discharge Medications: Jonatan Olivarez Home Medication Instructions LISBETH:[id number] Printed on:04/26/19 1200 Medication Information albuterol (PROVENTIL) (2.5 MG/3ML) 0.083% [...] as needed for Pain Incontinence Supply Disposable [facility] Incontinence pads 150 per month. Please order [...] applicable) FAUSTO/ARB in CHF: N/A ASA in VA: N/A Statin in VA: N/A Statin in CVA: N/A Antiplatelet in CVA: N/A Total time spent on discharge services: 35 minutes Including the following activities: Evaluation and Management of patient Discussion with patient and/or surrogate about current care plan Coordination with Case Management and/or Non Destructive Tester Coordination of care with Consultants (if applicable) Coordination of care with Receiving Facility Physician (if applicable) Completion of DME forms (if applicable) Preparation of Discharge Summary Preparation of Medication Reconciliation Preparation of Discharge Prescriptions Signed: Ziggy Smith M.D. 04/26/2019 12:08 PM documented in this [facility] Phone: 1(270) 936-711001-12-2020 Hospital Discharge instructions* Instructions* Harish Sebastian DO [...] be sent through Care Everywhere. * Dizziness (Moldovan) * Shoulder Pain ([place]oldovan) [facility] Phone: [email or web address] note* Diagnosis Pelvic pain- Primary documented in this encounter [employer] Phone: [email or web address] note* Diagnosis Near syncope- Primary Syncope and collapse Multiple contusions Contusion of multiple sites, not elsewhere classified Abrasion of right knee, initial encounter documented in this encounter [employer] Phone: evaluation note* Diagnosis Intractable vomiting with nausea, unspecified vomiting type- Primary documented in this encounter [employer] Phone: evaluation note Assessments not supported for this document type No Assessments RecordedHealth [facility] Work Phone: Evaluation note* Diagnosis Closed head injury, initial encounter- Primary Fall, initial encounter Contusion of right knee, initial encounter documented in this encounter [employer] Phone: evalcktwcz note* Diagnosis Acute on chronic diastolic heart failure (HCC)- Primary Acute on chronic diastolic heart failure Cellulitis of left lower extremity Cellulitis and abscess of leg, except foot Acute on chronic respiratory failure with hypoxia (HCC) Pneumonia due to infectious organism, unspecified laterality, unspecified part of lung Pleural effusion, bilateral Unspecified pleural effusion CAD S/P percutaneous coronary angioplasty Coronary atherosclerosis of salt river coronary artery Tobacco abuse disorder Tobacco use disorder Acute on chronic respiratory failure with hypoxemia (HCC) COPD (chronic obstructive pulmonary disease) (HCC) Chronic airway obstruction, not elsewhere classified documented in this encounter [employer] Phone: evaluation note* Diagnosis Chronic right hip pain Pain in joint, pelvic region and thigh Fall, initial encounter Right hip pain Pain in joint, pelvic region and thigh documented in this encounter [employer] Phone: Evaluation note* Diagnosis Urinary incontinence, unspecified type documented in this encounter [employer] Phone: evalyqbzrw note* Diagnosis Right sided abdominal pain Abdominal pain, unspecified site documented in this encounter [employer] Phone: evalcpmwor note* Diagnosis Acute pain of left shoulder- Primary Dizziness Dizziness and giddiness documented in this encounter [employer] Phone: evalybozrm note* Diagnosis Community acquired bacterial pneumonia- Primary [...] S/P percutaneous coronary angioplasty Coronary atherosclerosis of [place] river coronary artery Tobacco abuse Tobacco use disorder Acute on chronic respiratory failure with hypoxemia (HCC) Smoking greater than 40 pack years Tobacco use disorder documented in this encounter [employer] Phone: evalnouzng note Includes: Assessments for all patient encounters Findings Encounter Date Assess tobacco abuse Established Patient with Vahid Nagy CNP 06/27/2018 Assessment of chronic lower back pain Es tablished Patient with Vahid Nagy CNP 06/27/2018 Obesity due to excess calories Establish ed Patient with Vahid Nagy [facility] 06/27/2018 Obesity due to excess calories Establish ed Patient with Vahid Nagy CNP 05/30/2018 Health [facility] Work Phone: Evaluation note* Diagnosis Chronic right hip pain Pain in joint, pelvic region and thigh documented in this encounter [employer] Phone: evalkcahcp note* Diagnosis Recurrent abdominal hernia without obstruction or gangrene, unspecified hernia type Right lower quadrant abdominal mass Abdominal or pelvic swelling, mass, or lump, right lower quadrant documented in this encounter [employer] Phone: evalowtqcc note* Diagnosis Ventral hernia without obstruction or gangrene- Primary Ventral hernia, unspecified, without mention of obstruction or gangrene Tobacco use Tobacco use disorder [facility] Diagnosis Contusion of coccyx, initial encounter- Primary Fall, initial encounter documented in this encounter [employer] Phone: evaluation note* Diagnosis Primary hypertension Unspecified [...] Chronic pain syndrome documented in this encounter [employer] Phone: evaluation note* Diagnosis Coccyx pain- Primary Other disorder of coccyx documented in this encounter [employer] Phone: evallfagcd note* Diagnosis Chronic obstructive pulmonary disease, unspecified COPD type (HCC) Chronic right hip pain Pain in joint, pelvic region and thigh Sacral pain Disorders of sacrum Lumbar back pain with radiculopathy affecting right lower extremity Chronic left hip pain Pain in joint, pelvic region and thigh documented in this encounter [employer] Phone: evaluation note* Diagnosis Onset Date Resolution Status Chest pain acuteHeart failureacuteHypotensionacuteHypoxiaacuteNonspecific ST-T wave electrocardiographic changesacutePulmonary emboliaProMedica [facility] Work Phone: Evaluation note* Diagnosis Onset Date Resolution Status Anemia acuteCAD (coronary artery disease)acuteChest painacuteH/O heart artery stent acuteHypotensionacuteHypoxiaacuteNonspecific ST-T wave electrocardiographic changesacutePulmonary emboliate [facility] Work Phone: Evaluation note* Diagnosis Gastrointestinal hemorrhage, unspecified gastrointestinal hemorrhage type- Primary Chronic gastrointestinal hemorrhage Unspecified, hemorrhage of gastrointestinal tract Gastric ulcer without hemorrhage or perforation, unspecified chronicity documented in this encounter [facility]* Diagnosis Hypothyroidism- Primary Unspecified hypothyroidism Claudication in peripheral vascular disease Peripheral vascular disease, unspecified ASHD (arteriosclerotic heart disease) Coronary atherosclerosis of unspecified type of vessel, salt river or graft Atherosclerosis of both carotid arteries Occlusion and stenosis of carotid artery without mention of cerebral infarction Intolerance of drug Other drug allergy Dizziness Dizziness and giddiness Atherosclerosis of artery of extremity with intermittent claudication Tobacco abuse Tobacco use disorder Tobacco abuse counseling Counseling on substance use and abuse CAD S/P percutaneous coronary angioplasty Coronary atherosclerosis of salt river coronary artery COPD with acute exacerbation (HCC)- [...] Coronary atherosclerosis of unspecified type of vessel, salt river or graft Oxygen dependent - 2L per baseline Dependence on supplemental oxygen Severe malnutrition Nutritional marasmus documented [facility]* Diagnosis Hypothyroidism- Primary Unspecified hypothyroidism Claudication in peripheral vascular disease Peripheral vascular disease, unspecified ASHD (arteriosclerotic heart disease) Coronary atherosclerosis of unspecified type of vessel, salt river or graft Atherosclerosis of both carotid arteries Occlusion and stenosis of carotid artery without mention of cerebral infarction Intolerance of drug Other drug allergy Dizziness Dizziness and giddiness Atherosclerosis of artery of extremity with intermittent claudication Tobacco abuse Tobacco use disorder Tobacco abuse counseling Counseling on substance use and abuse CAD S/P percutaneous coronary angioplasty Coronary atherosclerosis of [place] river coronary artery COPD with acute exacerbation (HCC)- [...] Chronic pain syndrome documented in this encounter [facility] note* Diagnosis Hypothyroidism- Primary Unspecified hypothyroidism Claudication in peripheral vascular disease Peripheral vascular disease, unspecified ASHD (arteriosclerotic heart disease) Coronary atherosclerosis of unspecified type of vessel, salt river or graft Atherosclerosis of both carotid arteries Occlusion and stenosis of carotid artery without mention of cerebral infarction Intolerance of drug Other drug allergy Dizziness Dizziness and giddiness Atherosclerosis of artery of extremity with intermittent claudication Tobacco abuse Tobacco use disorder Tobacco abuse counseling Counseling on substance use and abuse CAD S/P percutaneous coronary angioplasty Coronary atherosclerosis of [place] coronary artery COPD with acute exacerbation (HCC)- [...] Disorders of sacrum [facility]* Diagnosis Pain- Primary Generalized pain documented in [facility] encounter [facility]* Diagnosis Acute cystitis without hematuria- Primary Acute cystitis without hematuria Hypoxia Hypoxemia Hypothyroidism Unspecified hypothyroidism Controlled type 2 diabetes mellitus with diabetic peripheral angiopathy and gangrene, without long-term current use of insulin ([facility]) A-fib ([facility]) Atrial fibrillation Type 2 diabetes mellitus with diabetic foot infection ([facility]) COPD with acute exacerbation ([facility]) Tobacco abuse Tobacco use disorder Hyperlipidemia Other and unspecified hyperlipidemia Primary hypertension Unspecified essential hypertension Osteomyelitis of left foot ([facility]) Unspecified osteomyelitis, ankle and foot documented in this encounter [facility] Narrative History of Present Illness not supported for this document type No History of Present Illness RecordedHealth [facility] Work Phone: Hospital Discharge instructions* Attachments The following attachments cannot be sent through Care Everywhere. * Pelvic Pain ([place]old[place]) [facility] Phone: Hospital Discharge instructions* Attachments The following attachments cannot be sent through Care Everywhere. * Knee Pain or Injury ([place]oldovan) * Lightheadedness or Faintness ([place]oldovan) documented [facility] Phone: Hospital Discharge instructions* Attachments The following attachments cannot be sent through Care Everywhere. * Pneumonia ([place]) [facility]: Hospital Discharge instructions* Attachments The following attachments cannot be sent through Care Everywhere. * Pain: Coccyx ([place]oldovan) documented in this encounterGAEBLER CHILDR[facility] CENTERTicket[facility] Work Phone: Hospital Discharge instructionsNot on filedocumented in this encounterProMedica Health SystemInstructions Instructions not supported for this document type No Instructions RecordedHealth [facility] Work Phone: InstructionsNot on filedocumented [...] Outcomes for active Goals No Outcomes RecordedHealth [facility] Work Phone: reason for referral (narrative)No Reason for Referral RecordedHealth [facility] Work Phone: reason for visit Narrative* Auth/CertSpecialty Diagnoses / ProceduresReferred By ContactReferred To Contact Diagnoses Cellulitis Osmar Rodriguez MD [address] [place] [address] Phone: tel: fax: [facility] [address] [place] [address] Referral IDStatusReasonStart DateExpiration DateVisits RequestedVisits [id number] [facility] CenterReview of systems Narrative - Reported Review of Systems not supported for this document type No Review of Systems RecordedHealth [facility] Work Phone: History of Past Illness Name Date of Onset Comments Hypothyroidism DizzinessCAD (coronary artery disease)ASHD (arteriosclerotic heart disease) Ventral herniaDiabetes mellitus type 2 in obese04/14/2016HTN (hypertension)Type 2 diabetes /30/2018Lumbar spinal stenosisNov 12 [...] type 2 in obese04/14/2015HTN (hypertension)Type 2 diabetes kynlmvsy69/30/2018Lumbar spinal stenosisNov 2014 9:53AMDiabetes mellitus type 2 [...] type 2 in obese04/14/2015HTN (hypertension)Type 2 diabetes ljwsehym27/30/2018Lumbar spinal stenosisNov 2014 9:53AMDiabetes mellitus type 2 [...] type 2 in obese04/14/2015HTN (hypertension)Type 2 diabetes dvajtxqz67/30/2018Lumbar spinal stenosisNov 12 2014 9:53AMDiabetes mellitus type [...] type 2 in obese04/14/2015HTN (hypertension)Type 2 diabetes edsutfjv80/30/2018Lumbar spinal stenosisNov 12 2014 9:53AMDiabetes mellitus type [...] type 2 in obese04/14/2015HTN (hypertension)Type 2 diabetes ydgsizzi40/30/2018Lumbar spinal stenosisNov 2014 9:53AMDiabetes mellitus type 2 [...] PMFull Code03/18/2020 1:51 PM03/19/2020 5:35 PMNameRelationshipHealthcare Agent RelationshipCommunicationTufts Medical Center Brother/SisterPrimary Decision Maker* * Serafin OlivarezChildSecondary Decision Maker* * Code StatusDate ActivatedDate InactivatedCommentsFull Code05/13/2021 9:24 AM 05/17/2021 4:01 PMFull Code05/01/2021 7:55 PM2 3:54 PMFull Code03/18/2020 1:51 PM03/19/2020 5:35 PMNameRelationshipHealthcare Agent Relationship CommunicationBaBrockton HospitalBrother/SisterPrimary Decision Maker* * Serafin OlivarezChildSecondary Decision Maker* * Code StatusDate ActivatedDate InactivatedCommentsFull Code04/21/2019 10:31 PMCode StatusDate ActivatedDate InactivatedCommentsDNR Suspension07/19/2021 2:29 PMName RelationshipHealthcare Agent RelationshipCommunicationBaBrockton HospitalBrother/Sister Primary Decision Maker* * Serafin OlivarezChildSecondary Decision Maker* * NameRelationshipHealthcare Agent RelationshipCommunicationElderBrockton Hospital Brother/SisterPrimary Decision Maker* * Serafin OlivarezChildSecondary Decision Maker* * NameRelationshipHealthcare Agent RelationshipCommunicationBaBrockton Hospital Brother/SisterPrimary Decision Maker* * Serafin OlivarezChildSecondary [...] InactivatedComments05/01/2021 7:55 PM2 3:54 PMDate Activated Date YtofrwyyqkgRiwveoxg23/18/2020 1:51 PM03/19/2020 5:35 PMDate ActivatedDate UqfciczbgiyClvraodb82/18/2020 12:30 PM03/18/2020 1:50 PMNameRelationship Healthcare Agent RelationshipCommunicationBambi () Abbyther/Sister Primary Decision Maker* * Serafin OlivarezChildSecondary Decision Maker* * Advance Directive Response Recorded Date/ Time Advance Directives No January 19, 2024 6:01pm Date ActivatedDate SaorczyyojpHkevcoez42/11/2024 12:31 AM01/18/2024 3:18 PMDate ActivatedDate HnopkgtirfuDrdekqmq90/7/2024 4:06 PM10 10:56 PMDate ActivatedDate InactivatedComments11/10/2022 5:40 AM11/19/2022 8:58 PMDate ActivatedDate InactivatedComments10/22/2022 5:48 AM10/23/2022 5:00 PMDate ActivatedDate InactivatedComments09/25/2022 1:11 AM09/26/2022 6:33 PMDate ActivatedDate ZkeymgmzkilDdavqgjc72/11/2024 12:31 AMDate ActivatedDate DhdwwlphcpqYhamybnb97/7/2024 4:06 PM10 10:56 PMDate ActivatedDate InactivatedComments11/10/2022 5:40 AM11/19/2022 8:58 PMDate ActivatedDate InactivatedComments10/22/2022 5:48 AM10/23/2022 5:00 PMDate ActivatedDate InactivatedComments09/25/2022 1:11 AM09/26/2022 6:33 PMDate ActivatedDate IosbxsfxvqwTnibitmo38/11/2024 12:31 AMDate ActivatedDate InactivatedComments 07/13/2024 5:15 PM07/16/2024 5:48 PMDate ActivatedDate InactivatedComments 01/10/2024 12:31 AM01/18/2024 3:18 PMDate ActivatedDate InactivatedComments 01/06/2024 4:06 PM10 10:56 PMDate ActivatedDate InactivatedComments 11/10/2022 5:40 AM11/19/2022 8:58 PMDate ActivatedDate InactivatedComments 10/22/2022 5:48 AM10/23/2022 5:00 PMTypeDate RecordedPatient Latin Professor ExplanationACP-Advance Directive12/17/2022 2:10 PMDate ActivatedDate Inactivated Comments08/06/2024 3:00 PMDate ActivatedDate InactivatedComments12/13/2022 1:30 PM 12/14/2022 8:36 PMDate ActivatedDate InactivatedComments05/13/2021 9:24 AM 05/17/2021 4:01 PMDate ActivatedDate InactivatedComments05/01/2021 7:55 PM2 3:54 PMDate ActivatedDate EyywardcmyhFgprygdi44/18/2020 1:51 PM03/19/2020 5:35 PMNameRelationshipHealthcare Agent RelationshipCommunicationBob [facility] Secondary Decision Maker* * Date ActivatedDate InactivatedComments08/12/2024 3:27 PMDate ActivatedDate InactivatedComments08/06/2024 3:00 PM08/10/2024 11:12 PMDate ActivatedDate InactivatedComments12/13/2022 1:30 PM12/14/2022 8:36 PMDate ActivatedDate InactivatedComments05/13/2021 9:24 AM05/17/2021 4:01 PMDate ActivatedDate InactivatedComments05/01/2021 7:55 PM2 3:54 PMNameRelationshipHealthcare Agent RelationshipCommunicationBob [facility] HospitalSecondary Decision Maker* * Date ActivatedDate InactivatedComments08/12/2024 3:27 PM08/17/2024 2:18 PMName RelationshipHealthcare Agent RelationshipCommunicationBob [facility] HospitalSecondary Decision Maker* * TypeDate RecordedPatient RepresentativeExplanationACP-Advance Directive12/17/2022 2:10 PMACP-Advance Directive10/23/2024 9:59 AMLiving WillDate ActivatedDate InactivatedComments10/22/2024 3:38 PM10/26/2024 6:38 PMDate ActivatedDate InactivatedComments08/12/2024 3:27 PM08/17/2024 2:18 PMDate ActivatedDate InactivatedComments08/06/2024 3:00 PM08/10/2024 11:12 PMDate ActivatedDate InactivatedComments12/13/2022 1:30 PM12/14/2022 8:36 PMDate ActivatedDate InactivatedComments05/13/2021 9:24 AM05/17/2021 4:01 PMNameRelationshipHealthcare Agent RelationshipCommunicationBob [facility] Decision Maker* Date ActivatedDate InactivatedComments12/05/2024 5:34 PMDate ActivatedDate InactivatedComments07/13/2024 5:15 PM07/16/2024 5:48 PMDate ActivatedDate FpjftvtrwfjTctfduiv89/11/2024 12:31 AM01/18/2024 3:18 PMDate ActivatedDate TiirmzbotbqKqrliqdp18/7/2024 4:06 PM10 10:56 PMDate ActivatedDate InactivatedComments11/10/2022 5:40 AM11/19/2022 8:58 PMDate ActivatedDate DwtsflskpitIeazpfeu99/2/2025 12:14 AMDate ActivatedDate InactivatedComments 12/13/2024 3:44 PM12/17/2024 8:38 PMDate ActivatedDate InactivatedComments12/05/2024 5:34 PM12/11/2024 5:15 PMDate ActivatedDate InactivatedComments07/13/2024 5:15 PM 07/16/2024 5:48 PMDate ActivatedDate IcycplwokonWzvmnsgr39/11/2024 12:31 AM 01/18/2024 3:18 PM Assessments Findings Encounter Date Body mass index Medical Established Patient with 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 08/27/2018 Obesity due to excess calories Medical E stablished Patient with 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 08/27/2018 F17.210 - Nicotine dependenc e, cigarettes, uncomplicated Established Patient with Zach Grimaldo [facility] 07/28/2018 F34.1 - Dysthymic disorder Establishe d Patient with Zach Grimaldo [facility] 07/28/2018 F41.1 - Generalized anxiety disorder Established Patient with Zach Grimaldo [facility] 07/28/2018 Assess diabetes mellitus Medical Establi shed Patient with Vahid Nagy [facility] 07/28/2018 Assess generalized anxiety disorder [facility] Established Patient with Vahid Nagy [facility] 07/28/2018 Assess lumbago Medical Established Patient with Vahid Nagy [facility] 07/28/2018 Assess perennial allergic rh initis with seasonal variation Medical Established Patient with Vahid Nagy [facility] 07/28/2018 Body mass index Medical Established Patient with Vahid Nagy [facility] 07/28/2018 Obesity due to excess calories Medical E stablished Patient with Vahid Nagy [facility] 07/28/2018 Assess tobacco abuse Medical Established Patient with Vahid Nagy [facility] 06/27/2018 Assessment of chronic lower back pain Me dical Established Patient with Vahid Nagy [facility] 06/27/2018 Obesity due to excess calories Medical E stablished Patient with Vahidchristiano Nagy [facility] 06/27/2018 Obesity due to excess calories Medical E stablished Patient with Vahid Nagy [facility] 05/30/2018 Findings Encounter Date Assess dermatitis Medical Established Patient with Vahid Nagy [facility] 09/30/2018 Assess urinary tract infection Medical E stablished Patient with Vahid Nagy [facility] 09/30/2018 Body mass index Medical Established Patient with Vahid Nagy [facility] 08/27/2018 Obesity due to excess calories Medical E stablished Patient with Vahid Nagy [facility] 08/27/2018 F17.210 - Nicotine dependenc e, cigarettes, uncomplicated Established Patient with Zach Grimaldo [facility] 07/28/2018 F34.1 - Dysthymic disorder Establishe d Patient with Zach Grimaldo [facility] 07/28/2018 F41.1 - Generalized anxiety disorder Established Patient with Zach Grimaldo [facility] 07/28/2018 Assess diabetes mellitus Medical Establi shed Patient with Vahid Nagy [facility] 07/28/2018 Assess generalized anxiety disorder [facility] Established Patient with Vahid Nagy [facility] 07/28/2018 Assess lumbago Medical Established Patient with Vahid Nagy [facility] 07/28/2018 Assess perennial allergic rh initis with seasonal variation Medical Established Patient with Vahid Nagy [facility] 07/28/2018 Body mass index Medical Established Patient with Vahid Nagy [facility] 07/28/2018 Obesity due to excess calories Medical E stablished Patient with Vahid Nagy [facility] 07/28/2018 Assess tobacco abuse Medical Established Patient with Vahid Nagy [facility] 06/27/2018 Assessment of chronic lower back pain Me dical Established Patient with Vahid Nagy [facility] 06/27/2018 Obesity due to excess calories Medical E stablished Patient with Vahid Nagy [facility] 06/27/2018 Obesity due to excess calories Medical E stablished Patient with Vahid Nagy [facility] 05/30/2018 Findings Encounter Date Body mass index [Body mass i ndex (BMI) 35.0-35.9 adult] [facility] Diabetes Risk Test Score was three score 01/12/2019 Medical Established Patient with Elena [facility] 01/12/2019 Fagerstrom Score was 0 01/12/2019 Medica l [facility]2019 Limb pain of shoulder region Medical Est [facility]2019 Obesity due to excess calories Medical [facility]2019 PHQ-9: total score was 18 01/12/2019 Med ical [facility]2019 Assess bronchitis Medical Established Patient with Vahid Nagy [facility] 12/11/2018 Irreducible ventral hernia Medical Estab lished Patient with Vahid Nagy [facility] 12/11/2018 Obesity due to excess calories Medical E stablished Patient with Vahid Nagy [facility] 12/11/2018 Z68.32 - Body mass index (BM I) 32.0-32.9 adult Medical Established Patient with Vahid Nagy [facility] 12/11/2018 Body mass index Medical Established Patient with Vahid Nagy [facility] 10/30/2018 Assess dermatitis Medical Established Patient with Vahid Nagy [facility] 09/30/2018 Assess urinary tract infection Medical E stablished Patient with Vahid Nagy [facility] 09/30/2018 Body mass index Medical Established Patient with Vahid Nagy [facility] 08/27/2018 Obesity due to excess calories Medical E stablished Patient with Vahid Nagy [facility] 08/27/2018 F17.210 - Nicotine dependenc e, cigarettes, uncomplicated BH Established Patient with Zach Grimaldo [facility] 07/28/2018 F34.1 - Dysthymic disorder Establishe d Patient with Zach Grimaldo [facility] 07/28/2018 F41.1 - Generalized anxiety disorder BH Established Patient with Zach Grimaldo [facility] 07/28/2018 Assess diabetes mellitus Medical Establi shed Patient with Vahid Nagy [facility] 07/28/2018 Assess generalized anxiety disorder [facility] иван Established Patient with Vahid Nagy [facility] 07/28/2018 Assess lumbago Medical Established Patient with Vahid Nagy [facility] 07/28/2018 Assess perennial allergic rh initis with seasonal variation Medical Established Patient with Vahid Nagy [facility] 07/28/2018 Body mass index Medical Established Patient with Vahid Nagy [facility] 07/28/2018 Obesity due to excess calories Medical E stablished Patient with Vahid Nagy [facility] 07/28/2018 Assess tobacco abuse Medical Established Patient with Vahid Nagy [facility] 06/27/2018 Assessment of chronic lower back pain Me dical Established Patient with Vahid Nagy [facility] 06/27/2018 Obesity due to excess calories Medical E stablished Patient with Vahid Nagy [facility] 06/27/2018 Obesity due to excess calories Medical E stablished Patient with Vahid Nagy [facility] 05/30/2018 Diagnosis Near syncope- Primary Syncope and collapse Fall from standing, initial encounter Hyponatremia Hyposmolality and/or hyponatremia Diagnosis Pain of left upper extremity Findings Encounter Date Body mass index Medical Established Patient with Vahid Nagy [facility] 01/22/2019 Obesity due to excess calories Medical E stablished Patient with Vahid Nagy [facility] 01/22/2019 Body mass index [Body mass i ndex (BMI) 35.0-35.9 adult] Medical Established Patient with Elena Diazer [facility] 01/12/2019 Diabetes Risk Test Score was three score 01/12/2019 Medical Established Patient with Elena Diazer [facility] 01/12/2019 Fagerstrom Score was 0 01/12/2019 Medica l Established Patient with Elena Malik [facility] 01/12/2019 Limb pain of shoulder region Medical Est ablished Patient with Elenaradha Malik [facility] 01/12/2019 Obesity due to excess calories Medical E stablished Patient with Elena Diazer [facility] 01/12/2019 PHQ-9: total score was 18 01/12/2019 Med ical Established Patient with Elena Malik [facility] 01/12/2019 Assess bronchitis Medical Established Patient with Vahid Nagy [facility] 12/11/2018 Irreducible ventral hernia Medical Estab lished Patient with Vahid Nagy [facility] 12/11/2018 Obesity due to excess calories Medical E stablished Patient with Vahid Nagy [facility] 12/11/2018 Z68.32 - Body mass index (BM I) 32.0-32.9 adult Medical Established Patient with Vahid Nagy [facility] 12/11/2018 Body mass index Medical Established Patient with Vahid Nagy [facility] 10/30/2018 Assess dermatitis Medical Established Patient with Vahid Nagy [facility] 09/30/2018 Assess urinary tract infection Medical E stablished Patient with Vahidchristiano Nagy [facility] 09/30/2018 Body mass index Medical Established Patient with Vahid Nagy [facility] 08/27/2018 Obesity due to excess calories Medical E stablished Patient with Vahid Nagy [facility] 08/27/2018 F17.210 - Nicotine dependenc e, cigarettes, uncomplicated Established Patient with Zach Grimaldo [facility] 07/28/2018 F34.1 - Dysthymic disorder Establishe d Patient with Zach Grimaldo [facility] 07/28/2018 F41.1 - Generalized anxiety disorder Established Patient with Zach Grimaldo [facility] 07/28/2018 Assess diabetes mellitus Medical Establi shed Patient with Vahid Breweren [facility] 07/28/2018 Assess generalized anxiety disorder [facility] Established Patient with Vahid Angelita [facility] 07/28/2018 Assess lumbago Medical Established Patient with Vahid Nagy [facility] 07/28/2018 Assess perennial allergic rh initis with seasonal variation Medical Established Patient with Vahid Nagy [facility] 07/28/2018 Body mass index Medical Established Patient with Vahid Angelita [facility] 07/28/2018 Obesity due to excess calories Medical E stablished Patient with Vahid Nagy [facility] 07/28/2018 Assess tobacco abuse Medical Established Patient with Vahid Nagy [facility] 06/27/2018 Assessment of chronic lower back pain Me dical Established Patient with Vahid Angelita [facility] 06/27/2018 Obesity due to excess calories Medical E stablished Patient with Vahid Angelita [facility] 06/27/2018 Obesity due to excess calories Medical E stablished Patient with Vahid Angelita [facility] 05/30/2018 Findings Encounter Date Generalized anxiety disorder Establis hed Patient with Zach Grimaldo [facility] 02/19/2019 Persistent depressive disord er (dysthymia) Established Patient with Zach Grimaldo [facility] 02/19/2019 Body mass index Medical Established Patient with Vahid Nagy [facility] 02/19/2019 Generalized anxiety disorder Medical Est ablished Patient with Vahid Nagy [facility] 02/19/2019 Lumbago Medical Established Patient with Vahid Nagy [facility] 02/19/2019 Lumbar radiculopathy Medical Established Patient with Vahid aNgy [facility] 02/19/2019 Obesity due to excess calories Medical E stablished Patient with Vahid Nagy [facility] 02/19/2019 Body mass index Medical Established Patient with Vahid Nagy [facility] 01/22/2019 Obesity due to excess calories Medical E stablished Patient with Vahid Nagy [facility] 01/22/2019 Body mass index [Body mass i ndex (BMI) 35.0-35.9 adult] Medical [facility] Diabetes Risk Test Score was three score 01/12/2019 Medical Establ[facility]12/2019 Fagerstrom Score was 0 01/12/2019 Medica l Established [facility]/12/2019 Limb pain of shoulder region Medical Est ablished [facility]/12/2019 Obesity due to excess calories Medical E stablished [facility]12/2019 PHQ-9: total score was 18 01/12/2019 Med ical Established [facility]12/2019 Assess bronchitis Medical Established Patient with Vahid Nagy [facility] 12/11/2018 Irreducible ventral hernia Medical Estab lished Patient with Vahid Nagy [facility] 12/11/2018 Obesity due to excess calories Medical E stablished Patient with Vahid Nagy [facility] 12/11/2018 Z68.32 - Body mass index (BM I) 32.0-32.9 adult Medical Established Patient with Vahid Nagy [facility] 12/11/2018 Body mass index Medical Established Patient with Vahid Nagy [facility] 10/30/2018 Assess dermatitis Medical Established Patient with Vahid Nagy [facility] 09/30/2018 Assess urinary tract infection Medical E stablished Patient with Vahid Nagy [facility] 09/30/2018 Body mass index Medical Established Patient with Vahid Nagy [facility] 08/27/2018 Obesity due to excess calories Medical E stablished Patient with Vahid Nagy [facility] 08/27/2018 F17.210 - Nicotine dependenc e, cigarettes, uncomplicated BH Established Patient with Zach Grimaldo [facility] 07/28/2018 F34.1 - Dysthymic disorder Establishe d Patient with Zach Grimaldo [facility] 07/28/2018 F41.1 - Generalized anxiety disorder Established Patient with Zach Grimaldo [facility] 07/28/2018 Assess diabetes mellitus Medical Establi shed Patient with Vahid Breweren [facility] 07/28/2018 Assess generalized anxiety disorder [facility] иван Established Patient with Vahid Breweren [facility] 07/28/2018 Assess lumbago Medical Established Patient with Vahid Breweren [facility] 07/28/2018 Assess perennial allergic rh initis with seasonal variation Medical Established Patient with Vahid Nagy [facility] 07/28/2018 Body mass index Medical Established Patient with Vahid Nagy [facility] 07/28/2018 Obesity due to excess calories Medical E stablished Patient with Vahid Nagy [facility] 07/28/2018 Assess tobacco abuse Medical Established Patient with Vahid Nagy [facility] 06/27/2018 Assessment of chronic lower back pain Me dical Established Patient with Vahid Breweren [facility] 06/27/2018 Obesity due to excess calories Medical E stablished Patient with Vahid Nagy [facility] 06/27/2018 Obesity due to excess calories Medical E stablished Patient with Vahid Nagy [facility] 05/30/2018 Diagnosis Abdominal pain, unspecified abdominal location- Primary Anxiety state Anxiety state, unspecified Findings Encounter Date Acute atopic conjunctivitis [Acute atopic conjunctivitis left eye] Medical Established Patient with Elena Diazer [facility] 03/03/2019 Acute sinusitis Medical Established Patient with Elena Diazer [facility] 03/03/2019 Body mass index [Body mass i ndex (BMI) 35.0-35.9 adult] Medical Established Patient with Elena King [facility] 03/03/2019 Generalized anxiety disorder BH Establis hed Patient with Zach Grimaldo [facility] 02/19/2019 Nicotine dependence Established Patie nt with Zach Grimaldo [facility] 02/19/2019 Persistent depressive disord er (dysthymia) Established Patient with Zach Grimaldo [facility] 02/19/2019 Body mass index Medical Established Patient with Vahid Angelita [facility] 02/19/2019 Generalized anxiety disorder Medical Est ablished Patient with Vahid Angelita [facility] 02/19/2019 Lumbago Medical Established Patient with Vahid Angelita [facility] 02/19/2019 Lumbar radiculopathy Medical Established Patient with Vahid Angelita [facility] 02/19/2019 Obesity due to excess calories Medical E stablished Patient with Vahid Angelita [facility] 02/19/2019 Body mass index Medical Established Patient with Vahid Nagy [facility] 01/22/2019 Obesity due to excess calories Medical E stablished Patient with Vahid Nagy [facility] 01/22/2019 Body mass index [Body mass i ndex (BMI) 35.0-35.9 adult] Medical Established Patient with Elena Malik [facility] 01/12/2019 Diabetes Risk Test Score was three score 01/12/2019 Medical Established Patient with Elena Malik [facility] 01/12/2019 Fagerstrom Score was 0 01/12/2019 Medica l Established Patient with Elena Malik [facility] 01/12/2019 Limb pain of shoulder region Medical Est ablished Patient with Elena Malik [facility] 01/12/2019 Obesity due to excess calories Medical E stablished Patient with Elena Malik [facility] 01/12/2019 PHQ-9: total score was 18 01/12/2019 Med ical Established Patient with Elena Malik [facility] 01/12/2019 Assess bronchitis Medical Established Patient with Vahid Nagy [facility] 12/11/2018 Irreducible ventral hernia Medical Estab lished Patient with Vahid Nagy [facility] 12/11/2018 Obesity due to excess calories Medical E stablished Patient with Vahid Nagy [facility] 12/11/2018 Z68.32 - Body mass index (BM I) 32.0-32.9 adult Medical Established Patient with Vahid Nagy [facility] 12/11/2018 Body mass index Medical Established Patient with Vahid Nagy [facility] 10/30/2018 Assess dermatitis Medical Established Patient with Vahid Nagy [facility] 09/30/2018 Assess urinary tract infection Medical E stablished Patient with Vahid Nagy [facility] 09/30/2018 Body mass index Medical Established Patient with Vahid Nagy [facility] 08/27/2018 Obesity due to excess calories Medical E stablished Patient with Vahid Nagy [facility] 08/27/2018 F17.210 - Nicotine dependenc e, cigarettes, uncomplicated Established Patient with Zach Grimaldo [facility] 07/28/2018 F34.1 - Dysthymic disorder Establishe d Patient with Zach Grimaldo [facility] 07/28/2018 F41.1 - Generalized anxiety disorder Established Patient with Zach Grimaldo [facility] 07/28/2018 Assess diabetes mellitus Medical Establi shed Patient with Vahid Nagy [facility] 07/28/2018 Assess generalized anxiety disorder [facility] Established Patient with Vahid Nagy [facility] 07/28/2018 Assess lumbago Medical Established Patient with Vahid Nagy [facility] 07/28/2018 Assess perennial allergic rh initis with seasonal variation Medical Established Patient with Vahid Nagy [facility] 07/28/2018 Body mass index Medical Established Patient with Vahid Nagy [facility] 07/28/2018 Obesity due to excess calories Medical E stablished Patient with Vahid Nagy [facility] 07/28/2018 Assess tobacco abuse Medical Established Patient with Vahid Nagy [facility] 06/27/2018 Assessment of chronic lower back pain Me dical Established Patient with Vahid Nagy [facility] 06/27/2018 Obesity due to excess calories Medical E stablished Patient with Vahid Nagy [facility] 06/27/2018 Obesity due to excess calories Medical E stablished Patient with Vahid Nagy [facility] 05/30/2018 Findings Encounter Date Obesity due to excess calories Medical E stablished Patient with Vahid Nagy [facility] 03/20/2019 Z68.36 - Body mass index (BM I) 36.0-36.9 adult Medical Established Patient with Vahid Nagy [facility] 03/20/2019 Acute atopic conjunctivitis [Acute atopic conjunctivitis left eye] Medical Established Patient with Elena Diazer [facility] 03/03/2019 Acute sinusitis Medical Established Patient with Elena Diazer [facility] 03/03/2019 Body mass index [Body mass i ndex (BMI) 35.0-35.9 adult] Medical Established Patient with Elena Diazer [facility] 03/03/2019 Generalized anxiety disorder Establis hed Patient with Zach Grimaldo [facility] 02/19/2019 Nicotine dependence Established Patie nt with Zach Grimaldo [facility] 02/19/2019 Persistent depressive disord er (dysthymia) Established Patient with Zach Grimlado [facility] 02/19/2019 Body mass index Medical Established Patient with Vahid Angelita [facility] 02/19/2019 Generalized anxiety disorder Medical Est ablished Patient with Vahid Angelita [facility] 02/19/2019 Lumbago Medical Established Patient with Vahid Angelita [facility] 02/19/2019 Lumbar radiculopathy Medical Established Patient with Vahid Angelita [facility] 02/19/2019 Obesity due to excess calories Medical E stablished Patient with Vahid Angelita [facility] 02/19/2019 Body mass index Medical Established Patient with Vahid Angelita [facility] 01/22/2019 Obesity due to excess calories Medical E stablished Patient with Vahid Angelita [facility] 01/22/2019 Body mass index [Body mass i ndex (BMI) 35.0-35.9 adult] Medical Established Patient with Elena Malik [facility] 01/12/2019 Diabetes Risk Test Score was three score 01/12/2019 Medical Established Patient with Elena Malik [facility] 01/12/2019 Fagerstrom Score was 0 01/12/2019 Medica l [facility] Limb pain of shoulder region Medical Est ablished [facility]/2019 Obesity due to excess calories Medical E stablished [facility]12/2019 PHQ-9: total score was 18 01/12/2019 Med ical Established [facility]12[facility]2019 Assess bronchitis Medical Established Patient with Vahid Nagy [facility] 12/11/2018 Irreducible ventral hernia Medical Estab lished Patient with Vahid [facility] 12/11/2018 Obesity due to excess calories Medical [facility] Z68.32 - Body mass index (BM I) 32.0-32.9 adult Medical Establ[facility] Body mass index Medical Established Patient with Vahid Nagy [facility] 10/30/2018 Assess dermatitis Medical Established Patient with Vahid Nagy [facility] 09/30/2018 Assess urinary tract infection [facility] Body mass index Medical [facility]2018 Obesity due to excess calories Medical E stablished Patient with Vahid Nagy [facility] 08/27/2018 F17.210 - Nicotine dependenc e, cigarettes, uncomplicated BH Established Patient with Zach Grimaldo [facility] 07/28/2018 F34.1 - Dysthymic disorder Establishe d Patient with Zach Grimaldo [facility] 07/28/2018 F41.1 - Generalized anxiety disorder Established Patient with Zach Grimaldo [facility] 07/28/2018 Assess diabetes mellitus Medical Establi shed [facility]2018 Assess generalized anxiety disorder [facility] иван [facility]2018 Assess lumbago Medical Established Patient with Vahid Nagy [facility] 07/28/2018 Assess perennial allergic rh initis with seasonal variation Medical Established Patient with Vahid Nagy [facility] 07/28/2018 Body mass index Medical Established Patient with Vahid Nagy [facility] 07/28/2018 Obesity due to excess calories Medical E stablished Patient with Vahid Nagy [facility] 07/28/2018 Assess tobacco abuse Medical Established Patient with Vahid Nagy [facility] 06/27/2018 Assessment of chronic lower back pain Me dical Established Patient with Vahid Nagy [facility] 06/27/2018 Obesity due to excess calories Medical E stablished Patient with Vahid Nagy [facility] 06/27/2018 Obesity due to excess calories Medical E stablished Patient with Vahid Nagy [facility] 05/30/2018 Findings Encounter Date 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 04/14/2019 F41.1 - Generalized anxiety disorder Established Patient with Zach Grimaldo [facility] 04/14/2019 Obesity due to excess calories Medical E stablished Patient with Vahid Nagy [facility] 04/14/2019 Z68.36 - Body mass index (BM I) 36.0-36.9 adult Medical Established Patient with Vahid Nagy [facility] 04/14/2019 Obesity due to excess calories Medical E stablished Patient with Vahid Nagy [facility] 03/20/2019 Z68.36 - Body mass index (BM I) 36.0-36.9 adult Medical Established Patient with Vahid Nagy [facility] 03/20/2019 Acute atopic conjunctivitis [Acute atopic conjunctivitis left eye] Medical Established Patient with Elena Malik [facility] 03/03/2019 Acute sinusitis Medical Established Patient with Elena Diazer [facility] 03/03/2019 Body mass index [Body mass i ndex (BMI) 35.0-35.9 adult] Medical Established Patient with Elena King [facility] 03/03/2019 Generalized anxiety disorder Establis hed Patient with Zach Grimaldo [facility] 02/19/2019 Nicotine dependence Established Patie nt with Zach Grimaldo [facility] 02/19/2019 Persistent depressive disord er (dysthymia) Established Patient with Zach Grimaldo [facility] 02/19/2019 Body mass index Medical Established Patient with Vahid Breweren [facility] 02/19/2019 Generalized anxiety disorder Medical Est ablished Patient with Vahid Angelita [facility] 02/19/2019 Lumbago Medical Established Patient with Vahid Breweren [facility] 02/19/2019 Lumbar radiculopathy Medical Established Patient with Vahid Nagy [facility] 02/19/2019 Obesity due to excess calories Medical E stablished Patient with Vahid Nagy [facility] 02/19/2019 Body mass index Medical Established Patient with Vahid Nagy [facility] 01/22/2019 Obesity due to excess calories Medical E stablished Patient with Vahid Nagy [facility] 01/22/2019 Body mass index [Body mass i ndex (BMI) 35.0-35.9 adult] Medical Established Patient with Elena Malik [facility] 01/12/2019 Diabetes Risk Test Score was three score 01/12/2019 Medical Established Patient with Elena Malik [facility] 01/12/2019 Fagerstrom Score was 0 01/12/2019 Medica l Established Patient with Elena Malik [facility] 01/12/2019 Limb pain of shoulder region Medical Est ablished Patient with Elena Malik [facility] 01/12/2019 Obesity due to excess calories Medical E stablished Patient with Elena Malik [facility] 01/12/2019 PHQ-9: total score was 18 01/12/2019 Med ical [facility] Assess bronchitis Medical Established Patient with Vahid Nagy [facility] 12/11/2018 Irreducible ventral hernia Medical Estab lished Patient with Vahid Nagy [facility] 12/11/2018 Obesity due to excess calories Medical E stablished Patient with Vahid Nagy [facility] 12/11/2018 Z68.32 - Body mass index (BM I) 32.0-32.9 adult Medical Established Patient with Vahid Nagy [facility] 12/11/2018 Body mass index Medical Established Patient with Vahid Nagy [facility] 10/30/2018 Assess dermatitis Medical Established Patient with Vahid Nagy [facility] 09/30/2018 Assess urinary tract infection Medical E stablished Patient with Vahid Nagy [facility] 09/30/2018 Body mass index Medical Established Patient with Vahid Nagy [facility] 08/27/2018 Obesity due to excess calories Medical E stablished Patient with Vahid Nagy [facility] 08/27/2018 F17.210 - Nicotine dependenc e, cigarettes, uncomplicated BH Established Patient with Zach Grimaldo [facility] 07/28/2018 F34.1 - Dysthymic disorder Establishe d Patient with Zach Grimaldo [facility] 07/28/2018 F41.1 - Generalized anxiety disorder Established Patient with Zach Grimaldo [facility] 07/28/2018 Assess diabetes mellitus Medical Establi shed Patient with Vahid Nagy [facility] 07/28/2018 Assess generalized anxiety disorder [facility] Established Patient with Vahid Nagy [facility] 07/28/2018 Assess lumbago Medical Established Patient with Vahid Nagy [facility] 07/28/2018 Assess perennial allergic rh initis with seasonal variation Medical Established Patient with Vahid Nagy [facility] 07/28/2018 Body mass index Medical Established Patient with Vahid Nagy [facility] 07/28/2018 Obesity due to excess calories Medical E stablished Patient with Vahid Nagy [facility] 07/28/2018 Assess tobacco abuse Medical Established Patient with Vahid Nagy [facility] 06/27/2018 Assessment of chronic lower back pain Me dical Established Patient with Vahid Nagy [facility] 06/27/2018 Obesity due to excess calories Medical E stablished Patient with Vahid Nagy [facility] 06/27/2018 Obesity due to excess calories Medical E stablished Patient with Vahid Nagy [facility] 05/30/2018 Findings Encounter Date Z68.37 - Body mass index (BM I) 37.0-37.9 adult Medical Established Patient with Vahid Nagy [facility] 05/01/2019 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 04/14/2019 F41.1 - Generalized anxiety disorder Established Patient with Zach Grimaldo [facility] 04/14/2019 Obesity due to excess calories Medical E stablished Patient with Vahid Nagy [facility] 04/14/2019 Z68.36 - Body mass index (BM I) 36.0-36.9 adult Medical Established Patient with Vahid Nagy [facility] 04/14/2019 Obesity due to excess calories Medical E stablished Patient with Vahid Nagy [facility] 03/20/2019 Z68.36 - Body mass index (BM I) 36.0-36.9 adult Medical Established Patient with Vahid Nagy [facility] 03/20/2019 Acute atopic conjunctivitis [Acute atopic conjunctivitis left eye] Medical Established Patient with Elena King [facility] 03/03/2019 Acute sinusitis Medical Established Patient with Elena King [facility] 03/03/2019 Body mass index [Body mass i ndex (BMI) 35.0-35.9 adult] Medical Established Patient with Elena King [facility] 03/03/2019 Generalized anxiety disorder Establis hed Patient with Zach Grimaldo [facility] 02/19/2019 Nicotine dependence Established Patie nt with Zach Grimaldo [facility] 02/19/2019 Persistent depressive disord er (dysthymia) Established Patient with Zach Grimaldo [facility] 02/19/2019 Body mass index Medical Established Patient with Vahid Nagy [facility] 02/19/2019 Generalized anxiety disorder Medical Est ablished Patient with Vahid Nagy [facility] 02/19/2019 Lumbago Medical Established Patient with Vahid Nagy [facility] 02/19/2019 Lumbar radiculopathy Medical Established Patient with Vahid Nagy [facility] 02/19/2019 Obesity due to excess calories Medical E stablished Patient with Vahid Nagy [facility] 02/19/2019 Body mass index Medical Established Patient with Vahid Nagy [facility] 01/22/2019 Obesity due to excess calories Medical E stablished Patient with Vahid Nagy [facility] 01/22/2019 Body mass index [Body mass i ndex (BMI) 35.0-35.9 adult] Medical Established Patient with Elena Diazer [facility] 01/12/2019 Diabetes Risk Test Score was three score 01/12/2019 Medical Established Patient with Elena Diazer [facility] 01/12/2019 Fagerstrom Score was 0 01/12/2019 Medica l Established Patient with Elena Diazer [facility] 01/12/2019 Limb pain of shoulder region Medical Est ablished Patient with Elena Malik [facility] 01/12/2019 Obesity due to excess calories Medical E stablished Patient with Elena Diazer [facility] 01/12/2019 PHQ-9: total score was 18 01/12/2019 Med ical Established Patient with Elena Malik [facility] 01/12/2019 Assess bronchitis Medical Established Patient with Vahid Nagy [facility] 12/11/2018 Irreducible ventral hernia Medical Estab lished Patient with Vahid Breweren [facility] 12/11/2018 Obesity due to excess calories Medical E stablished Patient with Vahid Nagy [facility] 12/11/2018 Z68.32 - Body mass index (BM I) 32.0-32.9 adult Medical Established Patient with Vahid Angelita [facility] 12/11/2018 Body mass index Medical Established Patient with Vahid Angelita [facility] 10/30/2018 Assess dermatitis Medical Established Patient with Vahid Angelita [facility] 09/30/2018 Assess urinary tract infection Medical E stablished Patient with Vahid Angelita [facility] 09/30/2018 Body mass index Medical Established Patient with Vahid Angelita [facility] 08/27/2018 Obesity due to excess calories Medical E stablished Patient with Vahid Angelita [facility] 08/27/2018 F17.210 - Nicotine dependenc e, cigarettes, uncomplicated Established Patient with Zach Grimaldo [facility] 07/28/2018 F34.1 - Dysthymic disorder Establishe d Patient with Zach Grimaldo [facility] 07/28/2018 F41.1 - Generalized anxiety disorder Established Patient with Zach Grimaldo [facility] 07/28/2018 Assess diabetes mellitus Medical Establi shed Patient with Vahid Nagy [facility] 07/28/2018 Assess generalized anxiety disorder [facility] иван Established Patient with Vahid Nagy [facility] 07/28/2018 Assess lumbago Medical Established Patient with Vahid Nagy [facility] 07/28/2018 Assess perennial allergic rh initis with seasonal variation Medical Established Patient with Vahid Nagy [facility] 07/28/2018 Body mass index Medical Established Patient with Vahid Nagy [facility] 07/28/2018 Obesity due to excess calories Medical E stablished Patient with Vahid Nagy [facility] 07/28/2018 Assess tobacco abuse Medical Established Patient with Vahid Nagy [facility] 06/27/2018 Assessment of chronic lower back pain Me dical Established Patient with Vahid Nagy [facility] 06/27/2018 Obesity due to excess calories Medical E stablished Patient with Vahid Nagy [facility] 06/27/2018 Obesity due to excess calories Medical E stablished Patient with Vahid Nagy [facility] 05/30/2018 Diagnosis Contusion of left hand, initial encounter- Primary Diagnosis Acute respiratory failure with hypoxia and hypercapnia (HCC) Viral pneumonia Viral pneumonia, unspecified Acute pulmonary edema (HCC) Acute edema of lung, unspecified Diagnosis Benign paroxysmal positional vertigo, unspecified laterality Findings Encounter Date Depressive disorder Telebehavioral alth with Leah Short [facility] 08/26/2019 Generalized anxiety disorder [facility] with Leah Short [facility] 08/26/2019 Z68.37 - Body mass index (BM I) 37.0-37.9 adult Medical Established Patient with Vahid Nagy [facility] 05/01/2019 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 04/14/2019 F41.1 - Generalized anxiety disorder Established Patient with Zach Grimaldo [facility] 04/14/2019 Obesity due to excess calories Medical E stablished Patient with Vahid Nagy [facility] 04/14/2019 Z68.36 - Body mass index (BM I) 36.0-36.9 adult Medical Established Patient with Vahid Nagy [facility] 04/14/2019 Obesity due to excess calories Medical E stablished Patient with 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 03/20/2019 Z68.36 - Body mass index (BM I) 36.0-36.9 adult Medical Established Patient with Vahid Nagy [facility] 03/20/2019 Acute atopic conjunctivitis [Acute atopic conjunctivitis left eye] Medical Established Patient with Elena Diazer 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 03/03/2019 Acute sinusitis Medical Established Patient with Elena King [facility] 03/03/2019 Body mass index [Body mass i ndex (BMI) 35.0-35.9 adult] Medical Established Patient with Elena King [facility] 03/03/2019 Generalized anxiety disorder BH Establis hed Patient with Zach Grimaldo [facility] 02/19/2019 Nicotine dependence BH Established Patie nt with Zach Grimaldo [facility] 02/19/2019 Persistent depressive disord er (dysthymia) Established Patient with Zach Grimaldo [facility] 02/19/2019 Body mass index Medical Established Patient with Vahid Nagy [facility] 02/19/2019 Generalized anxiety disorder Medical Est ablished Patient with Vahid Nagy [facility] 02/19/2019 Lumbago Medical Established Patient with Vahid Nagy [facility] 02/19/2019 Lumbar radiculopathy Medical Established Patient with Vahid Nagy [facility] 02/19/2019 Obesity due to excess calories Medical E stablished Patient with Vahid Nagy [facility] 02/19/2019 Body mass index Medical Established Patient with Vahid Nagy [facility] 01/22/2019 Obesity due to excess calories Medical E stablished Patient with Vahidchristiano Nagy [facility] 01/22/2019 Body mass index [Body mass i ndex (BMI) 35.0-35.9 adult] Medical Established Patient with Elena King [facility] 01/12/2019 Diabetes Risk Test Score was three score 01/12/2019 Medical Established Patient with Elena King [facility] 01/12/2019 Fagerstrom Score was 0 01/12/2019 Medica l Established Patient with Elena King 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 01/12/2019 Limb pain of shoulder region Medical Est ablished Patient with Elena King 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 01/12/2019 Obesity due to excess calories Medical E stablished Patient with Elena King 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 01/12/2019 PHQ-9: total score was 18 01/12/2019 Med ical Established Patient with Elena King [facility] 01/12/2019 Assess bronchitis Medical Established Patient with Vahid Nagy [facility] 12/11/2018 Irreducible ventral hernia Medical Estab lished Patient with Vahid Angelita [facility] 12/11/2018 Obesity due to excess calories Medical E stablished Patient with Vahid Nagy [facility] 12/11/2018 Z68.32 - Body mass index (BM I) 32.0-32.9 adult Medical Established Patient with Vahid Nagy [facility] 12/11/2018 Body mass index Medical Established Patient with Vahid Angelita [facility] 10/30/2018 Assess dermatitis Medical Established Patient with Vahid Nagy [facility] 09/30/2018 Assess urinary tract infection Medical E stablished Patient with Vahid Angelita [facility] 09/30/2018 Body mass index Medical Established Patient with Vahid Angelita [facility] 08/27/2018 Obesity due to excess calories Medical E stablished Patient with Vahidchristiano Nagy [facility] 08/27/2018 F17.210 - Nicotine dependenc e, cigarettes, uncomplicated Established Patient with Zachernestina Grimaldo [facility] 07/28/2018 F34.1 - Dysthymic disorder Establishe d Patient with Zachernestina Grimaldo [facility] 07/28/2018 F41.1 - Generalized anxiety disorder Established Patient with Zach Grimaldo [facility] 07/28/2018 Assess diabetes mellitus Medical Establi shed Patient with Vahid Angelita [facility] 07/28/2018 Assess generalized anxiety disorder [facility] Established Patient with Vahid Angelita [facility] 07/28/2018 Assess lumbago Medical Established Patient with Vahid Angelita [facility] 07/28/2018 Assess perennial allergic rh initis with seasonal variation Medical Established Patient with Vahid Angelita [facility] 07/28/2018 Body mass index Medical Established Patient with Vahid Angelita [facility] 07/28/2018 Obesity due to excess calories Medical E stablished Patient with Vahid Angelita [facility] 07/28/2018 Assess tobacco abuse Medical Established Patient with Vahid Angelita [facility] 06/27/2018 Assessment of chronic lower back pain Me dical Established Patient with Vahid Angelita [facility] 06/27/2018 Obesity due to excess calories Medical E stablished Patient with Vahid Angelita [facility] 06/27/2018 Obesity due to excess calories Medical E stablished Patient with Vahid Angelita [facility] 05/30/2018 Diagnosis ASHD (arteriosclerotic heart disease) Coronary atherosclerosis of unspecified type of vessel, [place] or graft S/P angioplasty with stent Postsurgical [...] Short [facility] 08/26/2019 Generalized anxiety disorder [facility] Leah Short [facility] 08/26/2019 Z68.37 - Body mass index (BM I) 37.0-37.9 adult Medical Established Patient with Vahid Angelita [facility] 05/01/2019 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 04/14/2019 F41.1 - Generalized anxiety disorder Established Patient with Zach Grimaldo [facility] 04/14/2019 Obesity due to excess calories Medical E stablished Patient with Vahidchristiano Breweren [facility] 04/14/2019 Z68.36 - Body mass index (BM I) 36.0-36.9 adult Medical Established Patient with Vahid Angelita [facility] 04/14/2019 Obesity due to excess calories Medical E stablished Patient with Vahid Angelita [facility] 03/20/2019 Z68.36 - Body mass index (BM I) 36.0-36.9 adult Medical Established Patient with Vahid Nagy [facility] 03/20/2019 Acute atopic conjunctivitis [Acute atopic conjunctivitis left eye] Medical Established Patient with Elena Diazer [facility] 03/03/2019 Acute sinusitis Medical Established Patient with Elena Malik [facility] 03/03/2019 Body mass index [Body mass i ndex (BMI) 35.0-35.9 adult] Medical Established Patient with Elena Malik [facility] 03/03/2019 Generalized anxiety disorder Establis hed Patient with Zach Grimaldo [facility] 02/19/2019 Nicotine dependence Established Patie nt with Zach Grimaldo [facility] 02/19/2019 Persistent depressive disord er (dysthymia) Established Patient with Zach Grimaldo [facility] 02/19/2019 Body mass index Medical Established Patient with Vahid Nagy [facility] 02/19/2019 Generalized anxiety disorder Medical Est ablished Patient with Vahid Nagy [facility] 02/19/2019 Lumbago Medical Established Patient with Vahid Nagy [facility] 02/19/2019 Lumbar radiculopathy Medical Established Patient with Vahid Nagy [facility] 02/19/2019 Obesity due to excess calories Medical E stablished Patient with Vahid Nagy [facility] 02/19/2019 Body mass index Medical Established Patient with Vahid Nagy [facility] 01/22/2019 Obesity due to excess calories Medical E stablished Patient with Vahid Nagy [facility] 01/22/2019 Body mass index [Body mass i ndex (BMI) 35.0-35.9 adult] Medical [facility] Diabetes Risk Test Score was three score 01/12/2019 Medical Establ[facility] 01[facility]12/2019 Fagerstrom Score was 0 01/12/2019 Medica l Established [facility]/12/2019 Limb pain of shoulder region Medical Est ablished [facility]/12/2019 Obesity due to excess calories Medical E stablished [facility]/12/2019 PHQ-9: total score was 18 01/12/2019 Med ical [facility]ished [facility]/12[facility]2019 Assess bronchitis Medical Established Patient with Vahid Nagy [facility] 12/11/2018 Irreducible ventral hernia Medical Estab lished Patient with Vahid Nagy [facility] 12/11/2018 Obesity due to excess calories Medical E stablished Patient with Vahid Nagy [facility] 12/11/2018 Z68.32 - Body mass index (BM I) 32.0-32.9 adult Medical Established Patient with Vahid Nagy [facility] 12/11/2018 Body mass index Medical Established Patient with Vahid Nagy [facility] 10/30/2018 Assess dermatitis Medical Established Patient with Vahid Nagy [facility] [facility] Assess urinary tract infection Medical E stablished Patient with Vahid Nagy [facility] 09/30/2018 Body mass index Medical Established Patient with Vahid Nagy [facility] 08/27/2018 Obesity due to excess calories Medical E stablished Patient with Vahid Nagy [facility] 08/27/2018 F17.210 - Nicotine dependenc e, cigarettes, uncomplicated BH Established Patient with Zach Grimaldo [facility] 07/28/2018 F34.1 - Dysthymic disorder Establishe d Patient with Zach Grimaldo [facility] 07/28/2018 F41.1 - Generalized anxiety disorder BH Established Patient with Zach Grimaldo [facility] 07/28/2018 Assess diabetes mellitus Medical Establi shed Patient with Vahid Nagy [facility] 07/28/2018 Assess generalized anxiety disorder Medi иван Established Patient with Vahid Nagy [facility] 07/28/2018 Assess lumbago Medical Established Patient with Vahid Nagy [facility] 07/28/2018 Assess perennial allergic rh initis with seasonal variation Medical Established Patient with Vahid Angelita [facility] 07/28/2018 Body mass index Medical Established Patient with Vahid Angelita [facility] 07/28/2018 Obesity due to excess calories Medical E stablished Patient with Vahidchristiano Nagy [facility] 07/28/2018 Assess tobacco abuse Medical Established Patient with Vahid Nagy [facility] 06/27/2018 Assessment of chronic lower back pain Me dical Established Patient with Vahidchristiano Nagy [facility] 06/27/2018 Obesity due to excess calories Medical E stablished Patient with Vahid Angelita [facility] 06/27/2018 Obesity due to excess calories Medical E stablished Patient with Vahid Nagy [facility] 05/30/2018 Diagnosis ASHD (arteriosclerotic heart disease) Coronary atherosclerosis of unspecified type of vessel, [place] or graft S/P angioplasty with stent Postsurgical percutaneous transluminal coronary angioplasty status Mixed hyperlipidemia Essential hypertension Unspecified essential hypertension Tobacco abuse counseling Counseling on substance use and abuse Bilateral carotid artery disease, unspecified type (HCC) PVD (peripheral vascular disease) (HCC) Peripheral vascular disease, unspecified Abdominal aortic aneurysm (AAA) without rupture ([facility]) SOB (shortness of breath) Shortness of breath Diagnosis Chronic obstructive pulmonary disease with acute exacerbation (HCC) Obstructive chronic bronchitis with exacerbation Pneumonia due to organism Pneumonia due to other specified organism Cough Chronic bilateral low back pain with bilateral sciatica Diagnosis Opioid overdose, accidental or unintentional, initial encounter ([facility]) Pneumonia due to organism Pneumonia due to other specified organism Findings Encounter Date Depression Established Patie nt with Nitza Mark [facility] 10/21/2019 No depressive disorder Established Usha ac with Nitzashanita Mark [facility] 10/21/2019 F63.89 - Other impulse disor ders : Drug seeking behavior Medical Established Patient with Shawna Holliday [facility] 10/21/2019 Obesity due to excess calories Medical E stablished Patient with Shawna Holliday 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 10/21/2019 S76.211D - Strain of adducto r muscle, fascia and tendon of right thigh, subsequent encounter Medical Established Patient with Shawna Holliday 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 10/21/2019 Z68.35 - Body mass index (BM I) 35.0-35.9, adult Medical Established Patient with Shawna Holliday 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 10/21/2019 Depressive disorder Established Patie nt with Leah Short [facility] 09/24/2019 Generalized anxiety disorder Establis hed Patient with Leah Short [facility] 09/24/2019 M54.5 - Low back pain Medical Establishe d Patient with Shawna Holliday 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 09/24/2019 Obesity due to excess calories Medical E stablished Patient with Shawna Holliday 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 09/24/2019 Z68.25 - Body mass index (BM I) 25.0-25.9, adult Medical Established Patient with Shawna Holliday 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 09/24/2019 Depressive disorder Telebehavioral He alth with Leah Short [facility] 09/15/2019 Generalized anxiety disorder [facility] with Leah Short [facility] 09/15/2019 Depressive disorder Telebehavioral He alth with Leah Short [facility] 08/26/2019 Generalized anxiety disorder [facility] with Leah Short [facility] 08/26/2019 Z68.37 - Body mass index (BM I) 37.0-37.9 adult Medical Established Patient with Vahid Nagy [facility] 05/01/2019 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 04/14/2019 F41.1 - Generalized anxiety disorder Established Patient with Zach Grimaldo [facility] 04/14/2019 Obesity due to excess calories Medical E stablished Patient with Vahid Angelita [facility] 04/14/2019 Z68.36 - Body mass index (BM I) 36.0-36.9 adult Medical Established Patient with Vahid Angelita [facility] 04/14/2019 Obesity due to excess calories Medical E stablished Patient with Vahid Angelita [facility] 03/20/2019 Z68.36 - Body mass index (BM I) 36.0-36.9 adult Medical Established Patient with Vahid Breweren [facility] 03/20/2019 Acute atopic conjunctivitis [Acute atopic conjunctivitis left eye] Medical Established Patient with Elena King [facility] 03/03/2019 Acute sinusitis Medical Established Patient with Elena King [facility] 03/03/2019 Body mass index [Body mass i ndex (BMI) 35.0-35.9 adult] Medical Established Patient with Elena King [facility] 03/03/2019 Generalized anxiety disorder BH Establis hed Patient with Zach Grimaldo [facility] 02/19/2019 Nicotine dependence Established Patie nt with Zach Grimaldo [facility] 02/19/2019 Persistent depressive disord er (dysthymia) BH Established Patient with Zach Grimalod [facility] 02/19/2019 Body mass index Medical Established Patient with Vahid Breweren [facility] 02/19/2019 Generalized anxiety disorder Medical Est ablished Patient with Vahid Angelita [facility] 02/19/2019 Lumbago Medical Established Patient with Vahid Angelita [facility] 02/19/2019 Lumbar radiculopathy Medical Established Patient with Vahidchristiano Breweren [facility] 02/19/2019 Obesity due to excess calories Medical E stablished Patient with Vahidchristiano Breweren [facility] 02/19/2019 Body mass index Medical Established Patient with Vahid Breweren [facility] 01/22/2019 Obesity due to excess calories Medical E stablished Patient with Vahidchristiano Breweren [facility] 01/22/2019 Body mass index [Body mass i ndex (BMI) 35.0-35.9 adult] Medical Established Patient with Elena King [facility] 01/12/2019 Diabetes Risk Test Score was three score 01/12/2019 Medical Established Patient with Elena King [facility] 01/12/2019 Fagerstrom Score was 0 01/12/2019 Medica l Established Patient with Elena King [facility] 01/12/2019 Limb pain of shoulder region Medical Est ablished Patient with Elena King [facility] 01/12/2019 Obesity due to excess calories Medical E stablished Patient with Elena King [facility] 01/12/2019 PHQ-9: total score was 18 01/12/2019 Med ical Established Patient with Elena King [facility] 01/12/2019 Assess bronchitis Medical Established Patient with Vahid Angelita [facility] 12/11/2018 Irreducible ventral hernia Medical Estab lished Patient with Vahid Angelita [facility] 12/11/2018 Obesity due to excess calories Medical E stablished Patient with Vahid Angelita [facility] 12/11/2018 Z68.32 - Body mass index (BM I) 32.0-32.9 adult Medical Established Patient with Vahid Nagy [facility] 12/11/2018 Body mass index Medical Established Patient with Vahid Nagy [facility] 10/30/2018 Assess dermatitis Medical Established Patient with Vahid Nagy [facility] 09/30/2018 Assess urinary tract infection Medical E stablished Patient with Vahid Nagy [facility] 09/30/2018 Body mass index Medical Established Patient with Vahid Nagy [facility] 08/27/2018 Obesity due to excess calories Medical E stablished Patient with Vahid Nagy [facility] 08/27/2018 F17.210 - Nicotine dependenc e, cigarettes, uncomplicated BH Established Patient with Zach Grimaldo [facility] 07/28/2018 F34.1 - Dysthymic disorder Establishe d Patient with Zach Grimaldo [facility] 07/28/2018 F41.1 - Generalized anxiety disorder Established Patient with Zach Grimaldo [facility] 07/28/2018 Assess diabetes mellitus Medical Establi shed Patient with Vahid Nagy [facility] 07/28/2018 Assess generalized anxiety disorder [facility] Established Patient with Vahidchristiano Nagy [facility] 07/28/2018 Assess lumbago Medical Established Patient with Vahidchristiano Nagy [facility] 07/28/2018 Assess perennial allergic rh initis with seasonal variation Medical Established Patient with Vahid Nagy [facility] 07/28/2018 Body mass index Medical Established Patient with Vahid Nagy [facility] 07/28/2018 Obesity due to excess calories Medical E stablished Patient with Vahid Nagy [facility] 07/28/2018 Assess tobacco abuse Medical Established Patient with Vahidchristiano Nagy [facility] 06/27/2018 Assessment of chronic lower back pain Me dical Established Patient with Vahidchristiano Nagy [facility] 06/27/2018 Obesity due to excess calories Medical E stablished Patient with Vahid Angelita [facility] 06/27/2018 Obesity due to excess calories Medical E stablished Patient with Vahid Nagy [facility] 05/30/2018 Diagnosis Groin strain, right, initial encounter Findings Encounter Date Depressive disorder Established Patie nt with Nitza Mark [facility] 10/21/2019 F63.89 - Other impulse disor ders : Drug seeking behavior Medical Established Patient with Shawna Hele [facility] 10/21/2019 Obesity due to excess calories Medical E stablished Patient with Shawna Hele [facility] 10/21/2019 S76.211D - Strain of adducto r muscle, fascia and tendon of right thigh, subsequent encounter Medical Established Patient with Shawna Holliday [facility] 10/21/2019 Z68.35 - Body mass index (BM I) 35.0-35.9, adult Medical Established Patient with Shawna Holliday 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 10/21/2019 Depressive disorder Established Patie nt with Leah Short [facility] 09/24/2019 Generalized anxiety disorder Establis hed Patient with Leah Short [facility] 09/24/2019 M54.5 - Low back pain Medical Establishe d Patient with Shawna Holliday 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 09/24/2019 Obesity due to excess calories Medical E stablished Patient with Shawnaariana Hele 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 09/24/2019 Z68.25 - Body mass index (BM I) 25.0-25.9, adult Medical Established Patient with Shawna Holliday 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 09/24/2019 Depressive disorder Telebehavioral He alth with Leah Short [facility] 09/15/2019 Generalized anxiety disorder [facility] with Leah Short [facility] 09/15/2019 Depressive disorder Telebehavioral He alth with Leah Short [facility] 08/26/2019 Generalized anxiety disorder [facility] with Leah Short [facility] 08/26/2019 Z68.37 - Body mass index (BM I) 37.0-37.9 adult Medical Established Patient with Vahid Breweren [facility] 05/01/2019 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 04/14/2019 F41.1 - Generalized anxiety disorder Established Patient with Zach Grimaldo [facility] 04/14/2019 Obesity due to excess calories Medical E stablished Patient with Vahid Angelita [facility] 04/14/2019 Z68.36 - Body mass index (BM I) 36.0-36.9 adult Medical Established Patient with Vahid Angelita [facility] 04/14/2019 Obesity due to excess calories Medical E stablished Patient with Vahid Angelita [facility] 03/20/2019 Z68.36 - Body mass index (BM I) 36.0-36.9 adult Medical Established Patient with Vahid Angelita 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 03/20/2019 Acute atopic conjunctivitis [Acute atopic conjunctivitis left eye] Medical Established Patient with Elena King 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 03/03/2019 Acute sinusitis Medical Established Patient with Elena King 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 03/03/2019 Body mass index [Body mass i ndex (BMI) 35.0-35.9 adult] Medical Established Patient with Elena King [facility] 03/03/2019 Generalized anxiety disorder BH Establis hed Patient with Zach Grimaldo [facility] 02/19/2019 Nicotine dependence BH Established Patie nt with Zach Grimaldo [facility] 02/19/2019 Persistent depressive disord er (dysthymia) BH Established Patient with Zach Grimaldo [facility] 02/19/2019 Body mass index Medical Established Patient with Vahid Nagy [facility] 02/19/2019 Generalized anxiety disorder Medical Est ablished Patient with Vahidchristiano Breweren [facility] 02/19/2019 Lumbago Medical Established Patient with Vahidchristiano Breweren [facility] 02/19/2019 Lumbar radiculopathy Medical Established Patient with Vahidchristiano Nagy [facility] 02/19/2019 Obesity due to excess calories Medical E stablished Patient with Vahidchristiano Breweren [facility] 02/19/2019 Body mass index Medical Established Patient with Vahid Nagy [facility] 01/22/2019 Obesity due to excess calories Medical E stablished Patient with Vahid Nagy [facility] 01/22/2019 Body mass index [Body mass i ndex (BMI) 35.0-35.9 adult] Medical Established Patient with Elena King [facility] 01/12/2019 Diabetes Risk Test Score was three score 01/12/2019 Medical Established Patient with Elena King [facility] 01/12/2019 Fagerstrom Score was 0 01/12/2019 Medica l Established Patient with Elena King [facility] 01/12/2019 Limb pain of shoulder region Medical Est ablished Patient with Elena King [facility] 01/12/2019 Obesity due to excess calories Medical E stablished Patient with Elena King [facility] 01/12/2019 PHQ-9: total score was 18 01/12/2019 Med ical Established Patient with Elena King [facility] 01/12/2019 Assess bronchitis Medical Established Patient with Vahid Nagy [facility] 12/11/2018 Irreducible ventral hernia Medical Estab lished Patient with Vahid Nagy [facility] 12/11/2018 Obesity due to excess calories Medical E stablished Patient with Vahidchristiano Nagy [facility] 12/11/2018 Z68.32 - Body mass index (BM I) 32.0-32.9 adult Medical Established Patient with Vahid Nagy [facility] 12/11/2018 Body mass index Medical Established Patient with Vahid Angelita [facility] 10/30/2018 Assess dermatitis Medical Established Patient with Vahid Angelita [facility] 09/30/2018 Assess urinary tract infection Medical E stablished Patient with Vahid Nagy [facility] 09/30/2018 Body mass index Medical Established Patient with Vahid Nagy [facility] 08/27/2018 Obesity due to excess calories Medical E stablished Patient with Vahid Nagy [facility] 08/27/2018 F17.210 - Nicotine dependenc e, cigarettes, uncomplicated BH Established Patient with Zach Grimaldo [facility] 07/28/2018 F34.1 - Dysthymic disorder Establishe d Patient with Zach Grimaldo [facility] 07/28/2018 F41.1 - Generalized anxiety disorder Established Patient with Zach Grimaldo [facility] 07/28/2018 Assess diabetes mellitus Medical Establi shed Patient with Vahid Nagy [facility] 07/28/2018 Assess generalized anxiety disorder [facility] иван Established Patient with Vahid Nagy [facility] 07/28/2018 Assess lumbago Medical Established Patient with Vahidchristiano Nagy [facility] 07/28/2018 Assess perennial allergic rh initis with seasonal variation Medical Established Patient with Vahid Nagy [facility] 07/28/2018 Body mass index Medical Established Patient with Vahid Nagy [facility] 07/28/2018 Obesity due to excess calories Medical E stablished Patient with Vahid Nagy [facility] 07/28/2018 Assess tobacco abuse Medical Established Patient with Vahid Nagy [facility] 06/27/2018 Assessment of chronic lower back pain Me dical Established Patient with Vahid Nagy [facility] 06/27/2018 Obesity due to excess calories Medical E stablished Patient with Vahid Nagy [facility] 06/27/2018 Obesity due to excess calories Medical E stablished Patient with Vahid Nagy [facility] 05/30/2018 Findings Encounter Date Obesity due to excess calories Medical E stablished Patient with Vahid Nagy [facility] 11/16/2019 Z68.34 - Body mass index (BM I) 34.0-34.9, adult Medical Established Patient with Vahid Nagy [facility] 11/16/2019 Depressive disorder Established Patie nt with Nitza Mark [facility] 10/21/2019 F63.89 - Other impulse disor ders : Drug seeking behavior Medical Established Patient with Shawna Hele [facility] 10/21/2019 Obesity due to excess calories Medical E stablished Patient with Shawna Mg [facility] 10/21/2019 S76.211D - Strain of adducto r muscle, fascia and tendon of right thigh, subsequent encounter Medical Established Patient with Shawna Holliday [facility] 10/21/2019 Z68.35 - Body mass index (BM I) 35.0-35.9, adult Medical Established Patient with Shawna Holliday 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 10/21/2019 Depressive disorder Established Patie nt with Leah Short [facility] 09/24/2019 Generalized anxiety disorder Establis hed Patient with Leah Short [facility] 09/24/2019 M54.5 - Low back pain Medical Establishe d Patient with Shawna Holliday 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 09/24/2019 Obesity due to excess calories Medical E stablished Patient with Shawna Holliday 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 09/24/2019 Z68.25 - Body mass index (BM I) 25.0-25.9, adult Medical Established Patient with Shawna Holliday 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 09/24/2019 Depressive disorder Telebehavioral He alth with Leah Short [facility] 09/15/2019 Generalized anxiety disorder Tele[facility]ha [facility] Health with Leah Short [facility] 09/15/2019 Depressive disorder Telebehavioral He alth with Leah Short [facility] 08/26/2019 Generalized anxiety disorder Tele[facility]ha [facility] with Leah Short [facility] 08/26/2019 Z68.37 - Body mass index (BM I) 37.0-37.9 adult Medical Established Patient with Vahidchristiano Breweren [facility] 05/01/2019 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 04/14/2019 F41.1 - Generalized anxiety disorder Established Patient with Zachernestina Grimaldo [facility] 04/14/2019 Obesity due to excess calories Medical E stablished Patient with Vahid Angelita [facility] 04/14/2019 Z68.36 - Body mass index (BM I) 36.0-36.9 adult Medical Established Patient with Vahid Angeilta 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 04/14/2019 Obesity due to excess calories Medical E stablished Patient with Vahid Angelita 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 03/20/2019 Z68.36 - Body mass index (BM I) 36.0-36.9 adult Medical Established Patient with Vahid Angelita 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 03/20/2019 Acute atopic conjunctivitis [Acute atopic conjunctivitis left eye] Medical Established Patient with Elena King 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 03/03/2019 Acute sinusitis Medical Established Patient with Elena King 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 03/03/2019 Body mass index [Body mass i ndex (BMI) 35.0-35.9 adult] Medical Established Patient with Elena King [facility] 03/03/2019 Generalized anxiety disorder BH Establis hed Patient with Zach Grimaldo [facility] 02/19/2019 Nicotine dependence BH Established Patie nt with Zach Grimaldo [facility] 02/19/2019 Persistent depressive disord er (dysthymia) BH Established Patient with Zach Grimaldo [facility] 02/19/2019 Body mass index Medical Established Patient with Vahid Breweren [facility] 02/19/2019 Generalized anxiety disorder Medical Est ablished Patient with Vahid Angelita [facility] 02/19/2019 Lumbago Medical Established Patient with Vahidchristiano Breweren [facility] 02/19/2019 Lumbar radiculopathy Medical Established Patient with Vahidchristiano Breweren [facility] 02/19/2019 Obesity due to excess calories Medical E stablished Patient with Vahidchristiano Breweren [facility] 02/19/2019 Body mass index Medical Established Patient with Vahid Nagy [facility] 01/22/2019 Obesity due to excess calories Medical E stablished Patient with Vahid Breweren [facility] 01/22/2019 Body mass index [Body mass i ndex (BMI) 35.0-35.9 adult] Medical Established Patient with Elena King [facility] 01/12/2019 Diabetes Risk Test Score was three score 01/12/2019 Medical Established Patient with Elena King [facility] 01/12/2019 Fagerstrom Score was 0 01/12/2019 Medica l Established Patient with Elnea King [facility] 01/12/2019 Limb pain of shoulder region Medical Est ablished Patient with Elena King [facility] 01/12/2019 Obesity due to excess calories Medical E stablished Patient with Elena King [facility] 01/12/2019 PHQ-9: total score was 18 01/12/2019 Med ical Established Patient with Elena King [facility] 01/12/2019 Assess bronchitis Medical Established Patient with Vahid Breweren [facility] 12/11/2018 Irreducible ventral hernia Medical Estab lished Patient with Vahid Angelita [facility] 12/11/2018 Obesity due to excess calories Medical E stablished Patient with Vahidchristiano Breweren [facility] 12/11/2018 Z68.32 - Body mass index (BM I) 32.0-32.9 adult Medical Established Patient with Vahid Angelita [facility] 12/11/2018 Body mass index Medical Established Patient with Vahid Angelita [facility] 10/30/2018 Assess dermatitis Medical Established Patient with Vahid Angelita [facility] 09/30/2018 Assess urinary tract infection Medical E stablished Patient with Vahid Nagy [facility] 09/30/2018 Body mass index Medical Established Patient with Vahid Nagy [facility] [facility]2018 Obesity due to excess calories Medical E stablished Patient with Vahid Nagy [facility] 08/27/2018 F17.210 - Nicotine dependenc e, cigarettes, uncomplicated Established Patient with Zach Grimaldo [facility] 07/28/2018 F34.1 - Dysthymic disorder Establishe d Patient with Zach Grimaldo [facility] 07/28/2018 F41.1 - Generalized anxiety disorder Established Patient with Zach Grimaldo [facility] 07/28/2018 Assess diabetes mellitus Medical Establi shed Patient with Vahid Nagy [facility] 07/28/2018 Assess generalized anxiety disorder [facility] Established Patient with Vahid Nagy [facility] 07/28/2018 Assess lumbago Medical Established Patient with Vahid Nagy [facility] 07/28/2018 Assess perennial allergic rh initis with seasonal variation Medical Established Patient with Vahid Nagy [facility] 07/28/2018 Body mass index Medical Established Patient with Vahid Nagy [facility] 07/28/2018 Obesity due to excess calories Medical E stablished Patient with Vahid Nagy [facility] 07/28/2018 Assess tobacco abuse Medical Established Patient with Vahid Nagy [facility] 06/27/2018 Assessment of chronic lower back pain Me dical Established Patient with Vahid Nagy [facility] 06/27/2018 Obesity due to excess calories Medical E stablished Patient with Vahid Nagy [facility] 06/27/2018 Obesity due to excess calories Medical E stablished Patient with Vahid Nagy [facility] 05/30/2018 Findings Encounter Date Depression Established Patie nt with Leah Arroyo [facility] 01/28/2020 Generalized anxiety disorder Establis hed Patient with Leah Short [facility] 01/28/2020 Obesity due to excess calories Medical E stablished Patient with Vahid Nagy [facility] 01/28/2020 Z68.33 - Body mass index [BM I] 33.0-33.9, adult Medical Established Patient with Vahid Nagy [facility] 01/28/2020 Obesity due to excess calories Medical E stablished Patient with Vahidchristiano Nagy [facility] 11/16/2019 Z68.34 - Body mass index (BM I) 34.0-34.9, adult Medical Established Patient with Vahid Nagy [facility] 11/16/2019 Depressive disorder Established Patie nt with Nitza Mark [facility] 10/21/2019 F63.89 - Other impulse disor ders : Drug seeking behavior Medical Established Patient with Shawna Holliday 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 10/21/2019 Obesity due to excess calories Medical E stablished Patient with Shawna Holliday 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 10/21/2019 S76.211D - Strain of adducto r muscle, fascia and tendon of right thigh, subsequent encounter Medical Established Patient with Shawna Holliday 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 10/21/2019 Z68.35 - Body mass index (BM I) 35.0-35.9, adult Medical Established Patient with Shawna Holliday 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 10/21/2019 Depressive disorder Established Patie nt with Leah Short [facility] 09/24/2019 Generalized anxiety disorder Establis hed Patient with Leah Short [facility] 09/24/2019 M54.5 - Low back pain Medical Establishe d Patient with Shawna Holliday 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 09/24/2019 Obesity due to excess calories Medical E stablished Patient with Shawna Holliday 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 09/24/2019 Z68.25 - Body mass index (BM I) 25.0-25.9, adult Medical Established Patient with Shawna Holliday 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 09/24/2019 Depressive disorder Telebehavioral He alth with Leah Short [facility] 09/15/2019 Generalized anxiety disorder [facility] with Leah Short [facility] 09/15/2019 Depressive disorder Telebehavioral He alth with Leah Short [facility] 08/26/2019 Generalized anxiety disorder [facility] with Leah Short [facility] 08/26/2019 Z68.37 - Body mass index (BM I) 37.0-37.9 adult Medical Established Patient with Vahidchristiano Breweren [facility] 05/01/2019 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 04/14/2019 F41.1 - Generalized anxiety disorder Established Patient with Zach Grimaldo [facility] 04/14/2019 Obesity due to excess calories Medical E stablished Patient with Vahid Angelita 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 04/14/2019 Z68.36 - Body mass index (BM I) 36.0-36.9 adult Medical Established Patient with Vahid Nagelita 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 04/14/2019 Obesity due to excess calories Medical E stablished Patient with Vahid Angelita [facility] 03/20/2019 Z68.36 - Body mass index (BM I) 36.0-36.9 adult Medical Established Patient with Vahid Nagy [facility] 03/20/2019 Acute atopic conjunctivitis [Acute atopic conjunctivitis left eye] Medical Established Patient with Elean Diazer [facility] 03/03/2019 Acute sinusitis Medical Established Patient with Elena Diazer [facility] 03/03/2019 Body mass index [Body mass i ndex (BMI) 35.0-35.9 adult] Medical Established Patient with Elena King [facility] 03/03/2019 Generalized anxiety disorder Establis hed Patient with Zachernestina Grimaldo [facility] 02/19/2019 Nicotine dependence Established Patie nt with Zach Grimaldo [facility] 02/19/2019 Persistent depressive disord er (dysthymia) Established Patient with Zach Grimaldo [facility] 02/19/2019 Body mass index Medical Established Patient with Vahid Nagy [facility] 02/19/2019 Generalized anxiety disorder Medical Est ablished Patient with Vahid Angelita [facility] 02/19/2019 Lumbago Medical Established Patient with Vahid Angelita [facility] 02/19/2019 Lumbar radiculopathy Medical Established Patient with Vahid Breweren [facility] 02/19/2019 Obesity due to excess calories Medical E stablished Patient with Vahid Breweren [facility] 02/19/2019 Body mass index Medical Established Patient with Vahid Nagy [facility] 01/22/2019 Obesity due to excess calories Medical E stablished Patient with Vahid Nagy [facility] 01/22/2019 Body mass index [Body mass i ndex (BMI) 35.0-35.9 adult] Medical Established Patient with Elena Diazer [facility] 01/12/2019 Diabetes Risk Test Score was three score 01/12/2019 Medical Established Patient with Elena Diazer [facility] 01/12/2019 Fagerstrom Score was 0 01/12/2019 Medica l Established Patient with Elena Diazer [facility] 01/12/2019 Limb pain of shoulder region Medical Est ablished Patient with Elena Diazer [facility] 01/12/2019 Obesity due to excess calories Medical E stablished Patient with Elena King [facility] 01/12/2019 PHQ-9: total score was 18 01/12/2019 Med ical Established Patient with Elena King [facility] 01/12/2019 Assess bronchitis Medical Established Patient with Vahid Angelita [facility] 12/11/2018 Irreducible ventral hernia Medical Estab lished Patient with Vahid [facility] 12/11/2018 Obesity due to excess calories Medical E stablished Patient with Vahid [facility] 12/11/2018 Z68.32 - Body mass index (BM I) 32.0-32.9 adult Medical Established Patient with Vahid [facility] 12/11/2018 Body mass index Medical [facility] Assess dermatitis Medical Establ[facility]2018 Assess urinary tract infection Medical E [facility]ablished [facility] Body mass index Medical Established Patient with Vahid [facility] 08/27/2018 Obesity due to excess calories Medical E stablished Patient with Vahid [facility] 08/27/2018 F17.210 - Nicotine dependenc e, cigarettes, uncomplicated Established Patient with Zach Grimaldo [facility] 07/28/2018 F34.1 - Dysthymic disorder Establishe d Patient with Zach Grimaldo [facility] 07/28/2018 F41.1 - Generalized anxiety disorder Established Patient with Zach Grimaldo [facility] 07/28/2018 Assess diabetes mellitus Medical Establi shed [facility]2018 Assess generalized anxiety disorder [facility]ван [facility]2018 Assess lumbago Medical Established Patient with Vahid [facility] 07/28/2018 Assess perennial allergic rh initis with seasonal variation Medical Established Patient with Vahid [facility] 07/28/2018 Body mass index Medical Established Patient with Vahid [facility] 07/28/2018 Obesity due to excess calories Medical E stablished Patient with Vahid [facility] 07/28/2018 Assess tobacco abuse Medical Established [facility]/27[facility]2018 Assessment of chronic lower back pain Me dical Established [facility]/27/2018 Obesity due to excess calories Medical E stablished Patient with Vahid [facility] 06/27/2018 Obesity due to excess calories Medical E stablished [facility]30[facility]2018 Diagnosis Osteoarthritis, unspecified osteoarthritis type, [...] Medical E stablished Patient with Vahid Angelita [facility] 04/12/2020 Z68.33 - Body mass index [BM I] 33.0-33.9, adult Medical Established Patient with Vahidchristiano Breweren 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 04/12/2020 Depression Established Patie nt with Leah Short [facility] 01/28/2020 Generalized anxiety disorder Establis hed Patient with Leah Short [facility] 01/28/2020 Obesity due to excess calories Medical E stablished Patient with Vahid Angelita [facility] 01/28/2020 Z68.33 - Body mass index [BM I] 33.0-33.9, adult Medical Established Patient with Vahid Angelita [facility] 01/28/2020 Obesity due to excess calories Medical E stablished Patient with Vahid Angelita [facility] 11/16/2019 Z68.34 - Body mass index (BM I) 34.0-34.9, adult Medical Established Patient with Vahidchristiano Nagy [facility] 11/16/2019 Depressive disorder Established Patie nt with Nitza Mark [facility] 10/21/2019 F63.89 - Other impulse disor ders : Drug seeking behavior Medical Established Patient with Shawna Holliday [facility] 10/21/2019 Obesity due to excess calories Medical E stablished Patient with Shawna Mg [facility] 10/21/2019 S76.211D - Strain of adducto r muscle, fascia and tendon of right thigh, subsequent encounter Medical Established Patient with Shawna Holliday [facility] 10/21/2019 Z68.35 - Body mass index (BM I) 35.0-35.9, adult Medical Established Patient with Shawna Hele [facility] 10/21/2019 Depressive disorder Established Patie nt with Leah Short [facility] 09/24/2019 Generalized anxiety disorder Establis hed Patient with Leah Short [facility] 09/24/2019 M54.5 - Low back pain Medical Establishe d Patient with Shawna Holliday 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 09/24/2019 Obesity due to excess calories Medical E stablished Patient with Shawna Holliday 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 09/24/2019 Z68.25 - Body mass index (BM I) 25.0-25.9, adult Medical Established Patient with Shawna Holliday 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 09/24/2019 Depressive disorder Telebehavioral He alth with Leah Short [facility] 09/15/2019 Generalized anxiety disorder [facility] with Leah Short [facility] 09/15/2019 Depressive disorder Telebehavioral He alth with Leah Short [facility] 08/26/2019 Generalized anxiety disorder [facility] with Leah Short [facility] 08/26/2019 Z68.37 - Body mass index (BM I) 37.0-37.9 adult Medical Established Patient with Vahid Angelita [facility] 05/01/2019 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 04/14/2019 F41.1 - Generalized anxiety disorder Established Patient with Zach Grimaldo [facility] 04/14/2019 Obesity due to excess calories Medical E stablished Patient with Vahid Angelita [facility] 04/14/2019 Z68.36 - Body mass index (BM I) 36.0-36.9 adult Medical Established Patient with Vahid Angelita [facility] 04/14/2019 Obesity due to excess calories Medical E stablished Patient with Vahid Angelita [facility] 03/20/2019 Z68.36 - Body mass index (BM I) 36.0-36.9 adult Medical Established Patient with Vahid Angelita [facility] 03/20/2019 Acute atopic conjunctivitis [Acute atopic conjunctivitis left eye] Medical Established Patient with Elena King [facility] 03/03/2019 Acute sinusitis Medical Established Patient with Elena King [facility] 03/03/2019 Body mass index [Body mass i ndex (BMI) 35.0-35.9 adult] Medical Established Patient with Elena King 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 03/03/2019 Generalized anxiety disorder Establis hed Patient with Zach Grimaldo [facility] 02/19/2019 Nicotine dependence Established Patie nt with Zachernestina Grimaldo [facility] 02/19/2019 Persistent depressive disord er (dysthymia) Established Patient with Zach Dillan [facility] 02/19/2019 Body mass index Medical Established Patient with Vahid Nagy [facility] 02/19/2019 Generalized anxiety disorder Medical Est ablished Patient with Vahid Nagy [facility] 02/19/2019 Lumbago Medical Established Patient with Vahid Nagy [facility] 02/19/2019 Lumbar radiculopathy Medical Established Patient with Vahid Nagy [facility] 02/19/2019 Obesity due to excess calories Medical E stablished Patient with Vahid Nagy [facility] 02/19/2019 Body mass index Medical Established Patient with Vahid Nagy [facility] 01/22/2019 Obesity due to excess calories Medical E stablished Patient with Vahid Nagy [facility] 01/22/2019 Body mass index [Body mass i ndex (BMI) 35.0-35.9 adult] Medical Established Patient with Elena Malik [facility] 01/12/2019 Diabetes Risk Test Score was three score 01/12/2019 Medical Established Patient with Elena Diazer [facility] 01/12/2019 Fagerstrom Score was 0 01/12/2019 Medica l Established Patient with Elena Diazer [facility] 01/12/2019 Limb pain of shoulder region Medical Est ablished Patient with Elena Diazer [facility] 01/12/2019 Obesity due to excess calories Medical E stablished Patient with Elena King [facility] 01/12/2019 PHQ-9: total score was 18 01/12/2019 Med ical Established Patient with Elena Malik [facility] 01/12/2019 Assess bronchitis Medical Established Patient with Vahid Breweren [facility] 12/11/2018 Irreducible ventral hernia Medical Estab lished Patient with Vahid Nagy [facility] 12/11/2018 Obesity due to excess calories Medical E stablished Patient with Vahid Nagy [facility] 12/11/2018 Z68.32 - Body mass index (BM I) 32.0-32.9 adult Medical Established Patient with Vahid Angelita [facility] 12/11/2018 Body mass index Medical Established Patient with Vahid Angelita [facility] 10/30/2018 Assess dermatitis Medical Established Patient with Vahid Angelita [facility] 09/30/2018 Assess urinary tract infection Medical E stablished Patient with Vahid Angelita [facility] 09/30/2018 Body mass index Medical Established Patient with Vahid Angelita [facility] 08/27/2018 Obesity due to excess calories Medical E stablished Patient with Vahid Nagy [facility] 08/27/2018 F17.210 - Nicotine dependenc e, cigarettes, uncomplicated Established Patient with Zach Grimaldo [facility] 07/28/2018 F34.1 - Dysthymic disorder Establishe d Patient with Zach Grimaldo [facility] 07/28/2018 F41.1 - Generalized anxiety disorder Established Patient with Zach Grimaldo [facility] 07/28/2018 Assess diabetes mellitus Medical Establi shed Patient with Vahid Nagy [facility] 07/28/2018 Assess generalized anxiety disorder [facility] Established Patient with Vahid Nagy [facility] 07/28/2018 Assess lumbago Medical Established Patient with Vahid Nagy [facility] 07/28/2018 Assess perennial allergic rh initis with seasonal variation Medical Established Patient with Vahid Nagy [facility] 07/28/2018 Body mass index Medical Established Patient with Vahid Nagy [facility] 07/28/2018 Obesity due to excess calories Medical E stablished Patient with Vahid Nagy [facility] 07/28/2018 Assess tobacco abuse Medical Established Patient with Vahid Nagy [facility] 06/27/2018 Assessment of chronic lower back pain Me dical Established Patient with Vahid Nagy [facility] 06/27/2018 Obesity due to excess calories Medical E stablished Patient with Vahid Nagy [facility] 06/27/2018 Obesity due to excess calories Medical E stablished Patient with Vahid Nagy [facility] 05/30/2018 Diagnosis Acute right-sided low back pain without sciatica- Primary Findings Encounter Date Body mass index Medical Established Patient with Vahid Nagy [facility] 10/30/2018 Assess dermatitis Medical Established Patient with Vahid Nagy [facility] 09/30/2018 Assess urinary tract infection Medical E stablished Patient with Vahid Nagy [facility] 09/30/2018 Body mass index Medical Established Patient with Vahid Nagy [facility] 08/27/2018 Obesity due to excess calories Medical E stablished Patient with Vahid Nagy [facility] 08/27/2018 F17.210 - Nicotine dependenc e, cigarettes, uncomplicated Established Patient with Zach Grimaldo [facility] 07/28/2018 F34.1 - Dysthymic disorder Establishe d Patient with Zach Grimaldo [facility] 07/28/2018 F41.1 - Generalized anxiety disorder Established Patient with Zach Grimaldo [facility] 07/28/2018 Assess diabetes mellitus Medical Establi shed Patient with Vahid Nagy [facility] 07/28/2018 Assess generalized anxiety disorder Medi иван Established Patient with Vahid Nagy [facility] 07/28/2018 Assess lumbago Medical Established Patient with Vahid Nagy [facility] 07/28/2018 Assess perennial allergic rh initis with seasonal variation Medical Established Patient with Vahid Nagy [facility] 07/28/2018 Body mass index Medical Established Patient with Vahid Nagy [facility] 07/28/2018 Obesity due to excess calories Medical E stablished Patient with Vahid Nagy [facility] 07/28/2018 Assess tobacco abuse Medical Established Patient with Vahid Nagy [facility] 06/27/2018 Assessment of chronic lower back pain Me dical Established Patient with Vahid Nagy [facility] 06/27/2018 Obesity due to excess calories Medical E stablished Patient with Vahid Nagy [facility] 06/27/2018 Obesity due to excess calories Medical E stablished Patient with Vahid Nagy [facility] 05/30/2018 Findings Encounter Date Generalized anxiety disorder Establis hed Patient with Zach Grimaldo [facility] 02/19/2019 Nicotine dependence Established Patie nt with Zach Grimaldo [facility] 02/19/2019 Persistent depressive disord er (dysthymia) Established Patient with Zach Grimaldo [facility] 02/19/2019 Body mass index Medical Established Patient with Vahid Nagy [facility] 02/19/2019 Generalized anxiety disorder Medical Est ablished Patient with Vahid Nagy [facility] 02/19/2019 Lumbago Medical Established Patient with Vahid Nagy [facility] 02/19/2019 Lumbar radiculopathy Medical Established Patient with Vahid Nagy [facility] 02/19/2019 Obesity due to excess calories Medical E stablished Patient with Vahid Nagy [facility] 02/19/2019 Body mass index Medical Established Patient with Vahid Nagy [facility] 01/22/2019 Obesity due to excess calories Medical E stablished Patient with Vahid Nagy [facility] 01/22/2019 Body mass index [Body mass i ndex (BMI) 35.0-35.9 adult] Medical Established Patient with Elena King [facility] 01/12/2019 Diabetes Risk Test Score was three score 01/12/2019 Medical Established Patient with Elena King [facility] 01/12/2019 Fagerstrom Score was 0 01/12/2019 Medica l Established Patient with Elena King [facility] 01/12/2019 Limb pain of shoulder region Medical Est ablished Patient with Elena King [facility] 01/12/2019 Obesity due to excess calories Medical E stablished Patient with Elena King [facility] 01/12/2019 PHQ-9: total score was 18 01/12/2019 Med ical Established Patient with Elena [facility] 01/12/2019 Assess bronchitis Medical [facility] Irreducible ventral hernia Medical Estab lished Patient with Vahid [facility] 12/11/2018 Obesity due to excess calories Medical E stablished Patient with Vahid [facility] 12/11/2018 Z68.32 - Body mass index (BM I) 32.0-32.9 adult Medical Established Patient with Vahid [facility] 12/11/2018 Body mass index Medical Established [facility] 10/30/2018 Assess dermatitis Medical Established Patient with Vahid [facility] 09/30/2018 Assess urinary tract infection Medical E stablished Patient with Vahid [facility] 09/30/2018 Body mass index Medical Establ[facility] 08/[facility]/2018 Obesity due to excess calories Medical E stablished Patient with Vahid [facility] 08/27/2018 F17.210 - Nicotine dependenc e, cigarettes, uncomplicated BH Established Patient with Zachernestina Grimaldo [facility] 07/28/2018 F34.1 - Dysthymic disorder Establishe d Patient with Zach Grimaldo [facility] 07/28/2018 F41.1 - Generalized anxiety disorder Established Patient with Zach Grimaldo [facility] 07/28/2018 Assess diabetes mellitus Medical Establi shed [facility] 07/[facility]/2018 Assess generalized anxiety disorder [facility] Established Patient with Vahid [facility] 07/28/2018 Assess lumbago Medical Established Patient with Vahid [facility] 07/28/2018 Assess perennial allergic rh initis with seasonal variation Medical Established Patient with Vahid [facility] 07/28/2018 Body mass index Medical Established Patient with Vahid [facility] 07/28/2018 Obesity due to excess calories Medical E stablished Patient with Vahid [facility] 07/28/2018 Assess tobacco abuse Medical Established Patient with Vahid [facility] 06/27/2018 Assessment of chronic lower back pain Me dical Established [facility] Obesity due to excess calories Medical E stablished Patient with Vahid [facility] 06/27/2018 Obesity due to excess calories Medical E stablished [facility] 05[facility]30/2018 Diagnosis Spinal stenosis of lumbar region, unspecified whether neurogenic claudication present DDD (degenerative disc disease), lumbar Degeneration of lumbar or lumbosacral intervertebral disc Diagnosis Atherosclerosis of artery of extremity with intermittent claudication (HCC) Incontinence Unspecified urinary incontinence Chronic obstructive pulmonary disease, unspecified COPD type ([facility]) Suspected COVID-19 virus infection AMS (altered mental status) Acute on chronic respiratory failure with hypercapnia ([facility]) CAD S/P percutaneous coronary angioplasty Coronary atherosclerosis of [place] coronary artery Tobacco abuse Tobacco use disorder Diabetes mellitus ([facility]) Type II or unspecified type diabetes mellitus without mention of complication, not stated as uncontrolled Hypertension Unspecified essential hypertension E. coli UTI Urinary tract infection, site not specified Diabetic polyneuropathy associated with type 2 diabetes mellitus ([facility]) COPD exacerbation ([facility]) Obstructive chronic bronchitis with exacerbation Findings Encounter Date Assess bronchitis Medical Established Patient with Vahid Nagy [facility] 12/11/2018 Irreducible ventral hernia Medical Estab lished Patient with Vahid Angelita CNP 12/11/2018 Obesity due to excess calories Medical E stablished [facility] 12/11/2018 Z68.32 - Body mass index (BM I) 32.0-32.9 adult Medical Established [facility] 12/11/2018 Body mass index Medical Established [facility] 10/30/2018 Assess dermatitis Medical Established [facility] 09/30/2018 Assess urinary tract infection Medical E stablished Patient with Vahid Angelita CNP 09/30/2018 Body mass index Medical Established [facility] 08/27/2018 Obesity due to excess calories Medical E stablished [facility] 08/27/2018 F17.210 - Nicotine dependenc e, cigarettes, uncomplicated Established Patient with Zachernestina Grimaldo [facility] 07/28/2018 F34.1 - Dysthymic disorder Establishe d Patient with Zachernestina Grimaldo [facility] 07/28/2018 F41.1 - Generalized anxiety disorder Established Patient with Zach Grimaldo [facility] 07/28/2018 Assess diabetes mellitus Medical Establi shed Patient with Vahid Angelita [facility] 07/28/2018 Assess generalized anxiety disorder [facility] иван Established Patient with Vahid Angelita [facility] 07/28/2018 Assess lumbago Medical Established Patient with Vahid Angelita [facility] 07/28/2018 Assess perennial allergic rh initis with seasonal variation Medical Established Patient with Vahid Angelita [facility] 07/28/2018 Body mass index Medical Established Patient with Vahid Nagy [facility] 07/28/2018 Obesity due to excess calories Medical E stablished Patient with Vahid Nagy [facility] 07/28/2018 Assess tobacco abuse Medical Established Patient with Vahid Nagy [facility] 06/27/2018 Assessment of chronic lower back pain Me dical Established Patient with Vahid Nagy [facility] 06/27/2018 Obesity due to excess calories Medical E stablished Patient with Vahid Nagy [facility] 06/27/2018 Obesity due to excess calories Medical E stablished Patient with Vahid Nagy [facility] 05/30/2018 Instructions Instructions not supported for this [...] unit via cart with [facility] to [facility] Belongings and paperwork in hand. No [...] No discharge needs at this time Contact: [phone] * Fadia Rojas RN - 03/18/2020 5:44 [...] DO - 03/19/2020 8:14 AM EST Eliseo Jinrikisha Driver Progress Note Date: 03/19/2020 Patient name: Jonatan [...] stenosis) Assessment: 1. Unstable angina transferred from [place]. 2. CAD s/p PCI-mid and distal RCA [...] by: Kenneth Canales MD Fellow, Cardiovascular Diseases [facility] Attending Document Review Specialist Addendum: I have reviewed and performed [...] questions. Joseph Hope DO, FACC, KESHA JUDD Natoma Jinrikisha Driver [facility] * Rena Corona RN - 03/19/2020 1:52 AM EST Patient called out to newspaper writer regarding home medications zanaflex and ibuprofen. Poultryman reached out to predator control trapper Dr. Kent, Dr. Kent called newspaper writer and asked for newspaper writer to place orders for home dosing [...] AM EST Received post cath procedure to [facility] room 7. Assessment obtained. Restrictions reviewed [...] request was completed. 21 Rxs sent to [facility] in [place]. * Leti Castellon RN - 07/25/2019 1:06 PM EDT Nurse newspaper writer attempted to contact patients jesi Woods at listed phone number of [phone]. No answer, message left on voice mail to please call me at [phone]. * Wes Mcbride MD - 07/25/2019 6:24 AM EDT [facility] Department of Internal Medicine - Staff Internal Medicine Teaching Service Inpatient Daily Progress Note Date: 07/25/2019 Patient Name: Jonatan Olivaerz Acct: [id number] Date of Admission: 07/18/2019 1:26 AM Date of : 1960 Primary Care Physician: Vahid Nagy APRN - 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 Attending Physician: Chago Boyd DO Room: [address] [place], [place] [id number] Number of days in the hospital: [...] Bonilla Catherine MD PGY-1, Internal Medicine Resident [facility] 07/25/2019, 6:24 AM Attending Physician Statement [...] MD - 07/24/2019 4:34 PM EDT [facility] Department of Internal Medicine - Staff Internal Medicine Teaching Service ICU PATIENT TRANSFER NOTE Date: 07/24/2019 Patient Name: Jonatan Olivarez Acct: [id number] Date of Admission: 07/18/2019 1:26 AM Date of : 1960 Primary Care Physician: Vahid M Angelita, ELECTRIC BLANKET 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 Attending Physician: Chago Boyd DO History Obtained [...] nasal cannula at home oxygen presented to [place] ER by family with history of fall. Patient was apparently found by family on the floor. Unknown downtime. [place] CT head which was normal, chest x-ray showed mild pulmonary edema. CT PE concerning forviral pneumonia. Because of concern for COVID patient was transferred to [facility]. COVID-19 testing was negative along with [...] mouth daily Historical Provider, Incontinence Supply Disposable [facility] Incontinence pads 150 per month. Please order pad that is covered by insurance plan 09/21/14 Kathie Oakley MD TRUETRACK TEST strip use as directed TO TEST BLOOD SUGAR three times a day 08/26/14 Kathie Oakley MD Blood Pressure Monitoring [facility] To monitor blood pressure as needed. Please order device that is covered by insurance. 06/28/14 Kelton Zazueta, ELECTRIC BLANKET 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 Current Inpatient: Scheduled Meds: [START ON 07/25/2019] [...] Garett Catherine MD PGY-1, Internal Medicine Resident [facility] 07/24/2019, 5:33 PM Attending Physician Statement [...] Patient's name: Jonatan Olivarez Patient's account/billing number: [id number] Patient's Date of : 1960 Age: 58 [...] 2 diabetes mellitus who initially presented to [place] ED with altered mental status, hypoxia and hypercapnia and was intubated at [place]. CT PE negative for PE but concerning [...] the patientfrom now onwards on the floor. Krisetn Alexandre MD PGY-2, Internal medicine resident [facility] [place] [place] 07/24/2019 1:45 PM * Mely Virk, [...] 5. Fluid Accumulation-Mild fluid accumulation, Generalized 6. Inside Sales Coordinator Strength-Not measured Nutrition Risk Level: High Nutrient Needs: Estimated Daily Total Kcal: 20-25 ~> 4095-9119 kcals/d Estimated Daily Protein (g): 1.2-2.0 gm/kg [...] wt loss x 7 mo per EMR Independence Body Wt: 105 lb (47.6 kg), % Independence Body 165% adm/ideal BMI Classification: BMI 30.0 - 34.9 Obese Class I(32.3) Nutrition Interventions: Continue current diet Continued Inpatient Monitoring, Education Not Indicated Nutrition Evaluation: Evaluation: Goals set Goals: po intake greater than 50% Monitoring: Meal Intake Contact Number: [phone] * Veronica Palacio, OT - 07/24/2019 10:12 AM EDT Occupational Therapy [address]Department[address] Daily Treatment Note NAME: Jonatan Olivarez : 1960 Date of Service: 07/24/2019 Discharge Recommendations: Patient would benefit from continued therapy after discharge Copied from Infectious Disease: Patient presented to [facility] on 07-16 after a fall and [...] for viral pna She was transferred to [facility] for further care Assessment Performance deficits / [...] Patient's name: Jonatan Olivarez Patient's account/billing number: [id number] Patient's Date of : 1960 Age: 58 y.o. Date of Admission: 07/18/2019 1:26 AM Length of stay during current admission: 6 Primary Care Physician: Vahid Nagy APRN - 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 ICU Attending Physician: Dr. Austen Alvarez Code Status: Full Code Reason for ICU admission: Acute Hypoxic respiratory failure Patient is a 58-year-old female with past medical history of chronic respiratory failure, COPD, hypertension, CAD, PVD, diastolic heart failure, type 2 diabetes mellitus who initially presented to [place] ED with altered mental status, hypoxia and hypercapnia and was intubated at [place]. CT PE negative for PE but concerning [...] Date 07/24/19 0000 - 07/24/19 2359 Shift 5923-6867 1330-6935 4035-8747 24 Hour Total INTAKE P.O.(mL/kg/hr) 960(1.4) 960 [...] Results Component Value Date PHART 7.321 07/17/2019 [id number] 64.4 07/17/2019 PO2ART 37.1 07/17/2019 [id number] 32.5 07/17/2019 [id number] 33 07/18/2019 [id number] 64.5 07/17/2019 FIO2 NOT REPORTED 07/18/2019 Lactic [...] No results for input(s): LABIRON, TIBC, FERRITIN, TQWYRFHG10, FOLATE, OCCULTBLD in the last 72 hours. Cultures during this admission: Blood cultures: [] None drawn [x] Negative [] Positive (Details: ) Urine Culture: [] None drawn [] Negative [x] Positive (Details: ESCHERICHIA COLI >512279 CFU/ML) Sputum Culture: [] None drawn [] [...] indicated. 11. Disposition. OK to transfer to [facility] surg monitored bed. Kristen Alexandre MD PGY-2, Internal medicine resident [facility] [place], [place] 07/24/2019 9:55 AM Associated attestation - Martin Alvarez MD - 07/24/2019 2:58 PM EDT Attending Physician Statement I have discussed the case of Jonatan Olivarez, including pertinent history and exam findings with the resident/fellow/JAVA SOFTWARE ENGINEER/PA. I have seen and examined the patient and the sims elements of the encounter have been performed by me. I agree with the assessment, plan and orders as documented by the resident/fellow/JAVA SOFTWARE ENGINEER/PA With changes made to the note as [...] monitor On Lovenox Transfer the patient to [facility] monitored bed We will follow the patient from pulmonary standpoint Martin Alvarez 07/24/2019 2:58 PM * Enzo Lerma PTA - 07/24/2019 8:30 AM EDT Physical Therapy Facility/Department: [address] Daily Treatment Note NAME: Jonatan Olivarez [...] mouth daily Historical Provider, Incontinence Supply Disposable [facility] Incontinence pads 150 per month. Please order pad that is covered by insurance plan 09/21/14 Kathie Oakley MD TRUETRACK TEST strip use as directed TO TEST BLOOD SUGAR three times a day 08/26/14 Kathie Oakley MD Blood Pressure Monitoring [facility] To monitor blood pressure as needed. Please order device that is covered by insurance. 06/28/14 Kelton Zazueta, ELECTRIC BLANKET 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 . Recent Surgical History: none Assessment Peak [...] 07/23/2019 10:59 AM EDT Physical Therapy Facility/Department: [address] Initial Assessment NAME: Jonatan Olivarez : 1960 Date of Service: 07/23/2019 Jonatan Olivarez is a 58 y.o. medical history of severe COPD, smoker and chronic respiratory failure, on 2 L of nasal cannula at home oxygen presented to [place] ER by family with history of fall. [...] concern for COVID patient was transferred to [facility]. Discharge Recommendations: Continue to assess pending [...] Ambulation Assistance: Independent Transfer Assistance: Independent Active Escalator Operator: Yes Mode of Transportation: Car Occupation: On [...] Ambulation Assistance: Independent Transfer Assistance: Independent Active Escalator Operator: Yes Mode of Transportation: Car Occupation: On [...] 0-100% Score: 50.11 (07/23/19 1040) ADL Inpatient [facility] G-Code Modifier : CK (07/23/19 1040) Goals [...] Patient's name: Jonatan Henrywick Patient's account/billing number: [id number] Patient's Date of : 1960 Age: 58 y.o. Date of Admission: 07/18/2019 1:26 AM Length of stay during current admission: 5 Primary Care Physician: Vahid Nagy APRN - 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 ICU Attending Physician: Dr. Austen Alvarez Code Status: Full Code Reason for ICU admission: Acute Hypoxic respiratory failure Patient is a 58-year-old female with past medical history of chronic respiratory failure, COPD, hypertension, CAD, PVD, diastolic heart failure, type 2 diabetes mellitus who initially presented to [place] ED with altered mental status, hypoxia and hypercapnia and was intubated at [place]. CT PE negative for PE but concerning [...] Date 07/23/19 0000 - 07/23/19 2359 Shift 9990-8917 5732-3575 8667-3288 24 Hour Total INTAKE I.V.(mL/kg) 288.9(3.4) 288.9(3.4) [...] Results Component Value Date PHART 7.321 07/17/2019 [id number] 64.4 07/17/2019 PO2ART 37.1 07/17/2019 [id number] 32.5 07/17/2019 [id number] 33 07/18/2019 [id number] 64.5 07/17/2019 FIO2 NOT REPORTED 07/18/2019 Lactic [...] No results for input(s): LABIRON, TIBC, FERRITIN, [id number], FOLATE, OCCULTBLD in the last 72 hours. [...] Discontinued ureña. 12. OK to transfer to [facility] monitored bed. Sera Moreira M.D. PGY 2 Department of Internal Medicine/ Critical care [facility]) 07/23/2019, 7:18 AM Associated attestation - Martin Alvarez MD - 07/23/2019 12:42 PM EDT Attending Physician Statement I have discussed the case of Jonatan Olivarez, including pertinent history and exam findings with the resident/fellow/JAVA SOFTWARE ENGINEER/PA. I have seen and examined the patient and the sims elements of the encounter have been performed by me. I agree with the assessment, plan and orders as documented by the resident/fellow/JAVA SOFTWARE ENGINEER/PA With changes made to the note as [...] on Lovenox Patient will be transferred to [facility] monitored bed We will follow the [...] Patient's name: Jonatan Henrywick Patient's account/billing number: [id number] Patient's Date of : 1960 Age: 58 y.o. Date of Admission: 07/18/2019 1:26 AM Length of stay during current admission: 4 Primary Care Physician: Vahid Nagy, HILDA - 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 ICU Attending Physician: Dr. Austen Alvarez Code Status: Full Code Reason for ICU admission: Acute Hypoxic respiratory failure Patient is a 58-year-old female with past medical history of chronic respiratory failure, COPD, hypertension, CAD, PVD, diastolic heart failure, type 2 diabetes mellitus who initially presented to [place] ED with altered mental status, hypoxia and hypercapnia and was intubated at [place]. CT PE negative for PE but concerning [...] Date 07/22/19 0000 - 07/22/19 2359 Shift 1067-3026 4377-8461 9730-5960 24 Hour Total INTAKE I.V.(mL/kg) 470(5.4) 260(3) [...] Results Component Value Date PHART 7.321 07/17/2019 [id number] 64.4 07/17/2019 PO2ART 37.1 07/17/2019 [id number] 32.5 07/17/2019 [id number] 33 07/18/2019 [id number] 64.5 07/17/2019 FIO2 NOT REPORTED 07/18/2019 Lactic [...] No results for input(s): LABIRON, TIBC, FERRITIN, MRMDFAGY13, FOLATE, OCCULTBLD in the last 72 hours. [...] 2 Department of Internal Medicine/ Critical care [facility]) 07/22/2019, 1:18 PM Associated attestation - Martin Alvarez MD - 07/22/2019 7:33 PM EDT Attending Physician Statement I have discussed the case of Jonatan Olivarez, including pertinent history and exam findings with the resident/fellow/JAVA SOFTWARE ENGINEER/PA. I have seen and examined the patient and the sims elements of the encounter have been performed by me. I agree with the assessment, plan and orders as documented by the resident/fellow/JAVA SOFTWARE ENGINEER/PA With changes made to the note as [...] AND/ASPEN Guidelines): 1. Energy Intake-Unable to assess AIR TRAFFIC SUPERVISOR; currently meeting greater than 75% of estimated nutrition needs with tube feeding. 2. Weight Loss-5% loss or greater, x 7 mo 3. Fat Loss-No significant subcutaneous fat loss, 4. Muscle Loss-No significant muscle mass loss, 5. Fluid Accumulation-Mild fluid accumulation, Generalized 6. Inside Sales Coordinator Strength-Not measured Nutrition Risk Level: High Nutrition Needs: Estimated Daily Total Kcal: 9420-0444 kcals/d Estimated Daily Protein (g): 60-95 g/d [...] g pro/day Additional Calories: Propofol at 4.7 mL/rj=318 kcal/day Anthropometric Measures: Ht: 5' 1 (154.9 cm) Current Body Wt: 192 lb 0.3 oz (87.1 kg) Admission Body Wt: 173 lb (78.5 kg) Weight Change: 6% wt loss x 7 mo per EMR Independence Body Wt: 105 lb (47.6 kg), % Independence Body 165% adm/ideal BMI Classification: BMI 30.0 - 34.9 Obese Class I(32.3) Nutrition Interventions: Continue current Tube Feeding Continued Inpatient Monitoring, Education Not Indicated Nutrition Evaluation: Evaluation: Goal achieved Goals: Start diet vs nutrition support within 24-72 hrs Monitoring: TF Intake, TF Tolerance, Weight, Pertinent Labs Contact Number: [phone] * Donna James RCP - 07/22/2019 8:07 [...] Patient's name: Jonatan Biggsck Patient's account/billing number: [id number] Patient's Date of : 1960 Age: 58 y.o. Date of Admission: 07/18/2019 1:26 AM Length of stay during current admission: 3 Primary Care Physician: Vahid Nagy, ELECTRIC BLANKET 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 ICU Attending Physician: Dr. Alvarez Code Status: Full Code Reason for ICU admission: Acute Hypoxic respiratory failure Patient is a 58-year-old female with past medical history of chronic respiratory failure, COPD, hypertension, CAD, PVD, diastolic heart failure, type 2 diabetes mellitus who initially presented to [facility] with altered mental status, hypoxia and hypercapnia and was intubated at [facility]. CT PE negative for PE but concerning [...] Date 07/21/19 0000 - 07/21/19 2359 Shift 7978-6170 5049-7343 9156-4021 24 Hour Total INTAKE I.V.(mL/kg) 534(6.2) 142(1.6) [...] Results Component Value Date PHART 7.321 07/17/2019 [id number] 64.4 07/17/2019 PO2ART 37.1 07/17/2019 HMX3ADM 32.5 07/17/2019 [id number] 33 07/18/2019 [id number] 64.5 07/17/2019 FIO2 NOT REPORTED 07/18/2019 Lactic [...] No results for input(s): LABIRON, TIBC, FERRITIN, [id number], FOLATE, OCCULTBLD in the last 72 hours. [...] M.D. Department of Internal Medicine/ Critical care [facility]) 07/21/2019, 11:12 AM Associated attestation - Martin Alvarez MD - 07/21/2019 2:36 PM EDT Attending Physician Statement I have discussed the case of Jonatan Olivarez, including pertinent history and exam findings with the resident/fellow/JAVA SOFTWARE ENGINEER/PA. I have seen and examined the patient and the sims elements of the encounter have been performed by me. I agree with the assessment, plan and orders as documented by the resident/fellow/JAVA SOFTWARE ENGINEER/PA With changes made to the note as [...] 5. Fluid Accumulation-Mild fluid accumulation, Generalized 6. Inside Sales Coordinator Strength-Not measured Nutrition Risk Level: High Nutrition Needs: Estimated Daily Total Kcal: 0513-3316 kcals/d Estimated Daily Protein (g): 60-100 g/d [...] wt loss x 7 mo per EMR Independence Body Wt: 105 lb (47.6 kg), % Independence Body 165% adm/ideal BMI Classification: BMI 30.0 [...] Tolerance, I&O, Weight, Pertinent Labs Contact Number: [phone] * Nasima Alvarez MD - 07/20/2019 9:53 AM EDT Critical Care Team - Daily Progress Note Date and time: 07/20/2019 9:53 AM Patient's name: Jonatan Biggsck Patient's account/billing number: [id number] Patient's Date of : 1960 Age: 58 y.o. Date of Admission: 07/18/2019 1:26 AM Length of stay during current admission: 2 Primary Care Physician: Vahid Nagy APRN - 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 ICU Attending Physician: Dr. Alvarez Code Status: Full Code Reason for ICU admission: Acute Hypoxic respiratory failure Patient is a 58-year-old female with past medical history of chronic respiratory failure, COPD, hypertension, CAD, PVD, diastolic heart failure, type 2 diabetes mellitus who initially presented to [facility] with altered mental status, hypoxia and hypercapnia and was intubated at [facility]. CT PE negative for PE but concerning [...] Date 07/20/19 0000 - 07/20/19 2359 Shift 0223-1790 3050-7348 6155-3895 24 Hour Total INTAKE I.V.(mL/kg) 1443(18.3) 1443(18.3) [...] Results Component Value Date PHART 7.321 07/17/2019 QSD0FSY 64.4 07/17/2019 PO2ART 37.1 07/17/2019 ZXK0MKR 32.5 07/17/2019 [id number] 33 07/18/2019 [id number] 64.5 07/17/2019 FIO2 NOT REPORTED 07/18/2019 Lactic [...] M.D. Department of Internal Medicine/ Critical care [facility]) 07/20/2019, 9:54 AM Associated attestation - Martin Alvarez MD - 07/20/2019 4:32 PM EDT Attending Physician Statement I have discussed the case of Jonatan Olivarez, including pertinent history and exam findings with the resident/fellow/JAVA SOFTWARE ENGINEER/PA. I have seen and examined the patient and the sims elements of the encounter have been performed by me. I agree with the assessment, plan and orders as documented by the resident/fellow/JAVA SOFTWARE ENGINEER/PA With changes made to the note as [...] 5:03 PM EDT [facility] - Initial Consult Note COVID 19 [...] showed concern for viral pneumonia. Transferred to [facility] and developed respiratory failure requiring intubation COVID testing negative ID will sign off Infection Control Recommendations Turner Precautions Antimicrobial Stewardship Recommendations Discontinuation of therapy [...] Dr. Baeza INITIAL HISTORY: Patient presented to [facility] ER on 07-16 after a fall [...] for viral pna She was transferred to [facility] for further care. Initially on arrival to [facility] pt was AA however she became lethargic [...] NL LV COPD (chronic obstructive pulmonary disease) ([facility]) Depression Diabetes mellitus ([facility]) Edema chevy legs feet H/O cardiac catheterization [...] History: Procedure Laterality Date AORTA SURGERY 05/2016 [facility], [place] CARDIAC CATHETERIZATION heart stent x3 CARDIAC CATHETERIZATION Left 02/25/2018 Right Ulnar/[facility]/ CARDIAC SURGERY CHOLECYSTECTOMY FEMORAL BYPASS HYSTERECTOMY VASCULAR [...] file Gets together: Not on file Attends jain service: Not on file Active member of [...] infectious and noninfectious processes. PneInd Medical Decision Sqibuz-Vkltklyw-Ngfwt: Medical Decision Making-Other: Note: Labs, medications, radiologic studies were reviewed with personal review of films Moderate Large amounts of data were reviewed Discussed with nursing Staff, retail planner Infection Control and Prevention measures reviewed [...] Patient's name: Jonatan Olivarez Patient's account/billing number: [id number] Patient's Date of : 1960 Age: 58 y.o. Date of Admission: 07/18/2019 1:26 AM Length of stay during current admission: 1 Primary Care Physician: Vahid Nagy APRN - 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 ICU Attending Physician: Dr. Alvarez Code Status: [...] List Diagnosis Date Noted Angina, class III ([facility]) 02/25/2018 Priority: High Diabetic ulcer of toe of left foot associated with type 2 diabetes mellitus, with fat layer exposed([facility]) 01/24/2017 Priority: High Class: Chronic CAD S/P percutaneous coronary angioplasty 08/30/2013 Priority: High Diabetic polyneuropathy associated with type 2 diabetes mellitus ([facility]) 01/24/2017 Priority: Medium Class: Chronic Ventral hernia 08/30/2013 Priority: Medium AMS (altered mental status) 07/18/2019 Acute on chronic respiratory failure with hypercapnia ([facility]) 07/18/2019 COVID-19 07/17/2019 Acute on chronic respiratory failure with hypoxemia ([facility]) 04/23/2019 Pneumonia due to infectious organism 04/23/2019 COPD, severity to be determined ([facility]) Diabetes mellitus ([facility]) Hypertension Community acquired bacterial pneumonia 04/21/2019 COPD exacerbation ([facility]) 06/06/2018 COPD with exacerbation ([facility]) 06/05/2018 Acute respiratory failure with hypoxia and hypercapnia ([facility]) 06/05/2018 Hx of blood clots CAD (coronary artery disease) Tobacco abuse counseling 05/27/2014 Tobacco abuse 05/27/2014 Atherosclerosis of artery of extremity with intermittent claudication ([facility]) 05/27/2014 Dizziness 05/27/2014 Intolerance of drug 05/27/2014 Atherosclerosis of both carotid arteries 05/27/2014 Hypothyroidism 05/27/2014 Abnormal nuclear stress test 01/22/2013 Smoking greater than 40 pack years 01/22/2013 Claudication in peripheral vascular disease ([facility]) 11/06/2012 Stable angina ([facility]) 11/06/2012 Additional assessment: COVID 19 Suspect Respiratory failure ES COPD DM II CAD PAD/PVD Neuropathy Macrolide and Cephalosporin allergy PLAN: WEAN PER PROTOCOL: [] No [] Yes [] N/A DISCONTINUE ANY LABS: [x] No [] Yes ICU PROPHYLAXIS: Stress ulcer: [] PPI Agent [x] [id number] [] Sucralfate [] Other: VTE: [] Enoxaparin [...] Lovenox 40 mg daily Austin Hogan M.D. Sales And Retail Management Recruiter on COVID Service 07/19/2019, 10:03 AM Associated [...] floorfor unknown and was initially taken to [place] [facility]. She was hypoxemic on presentation, was initially placed on high flow and subsequently intubated. Her CT was reported to be concerning for viral pneumonia and. She was transferred to [facility] for further management. Her COVID-19 test [...] 45.4 POCPO2 127.5* 61.7* POCHCO3 36.1* 31.9* XKVL2JIP 99* 92* CBC: Recent Labs 07/17/19 1740 [...] this chart was generated using voice recognition [employer] dictation software. Although every effort was made to ensure the accuracy of this automated primary education professor, some errors in primary education professor may have occurred. * Rahul Donohue RN [...] 4:07 PM EDT Pt sister Fay from [facility] called for update, update given. * [...] Assessment Type and Reason for Visit: Initial, Consult([facility] Vent Protocol) Nutrition Recommendations: -Continue [...] 5. Fluid Accumulation-Mild fluid accumulation, Generalized 6. Inside Sales Coordinator Strength-Not measured Nutrition Risk Level: High Nutrient Needs: Estimated Daily Total Kcal: 20-25 ~> 0311-9192 kcals/d Estimated Daily Protein (g): 1.2-2.0 gm/kg [...] wt loss x 7 mo per EMR [place] Body Wt: 105 lb (47.6 kg), % Independence Body 165% adm/ideal BMI Classification: BMI 30.0 - 34.9 Obese Class I(32.3) Nutrition Interventions: Continue NPO(Start diet vs nutrition support as able ) Continued Inpatient Monitoring, Education Not Indicated Nutrition Evaluation: Evaluation: Goals set Goals: Start diet vs nutrition support within 24-72 hrs Monitoring: Nutrition Progression, I&O, Weight, Pertinent Labs, Monitor Bowel Function Contact Number: [phone] * Stacy Rivas RCP - 07/18/2019 3:17 [...] COREY Wang 3:17 AM * Zach Witt [facility] - 07/18/2019 2:14 AM EDT Pharmacy [...] of artery of extremity with intermittent claudication ([facility]) Dizziness Intolerance of drug Atherosclerosis of both [...] consult. Will continue to follow. Zach Witt [facility] 07/18/2019 2:13 AM documented in this encounter* [...] w color complete Josef Brooks MD [address] [place] [address] [facility] [address] [place] [address] StatusReasonSpecialtyDiagnoses / ProceduresReferred By ContactReferred To ContactNot Required - RecondoCardiology / Stress Lab Diagnoses ASHD (arteriosclerotic heart disease) S/P angioplasty with stent Mixed hyperlipidemia Essential hypertension Tobacco abuse counseling Abdominal aortic aneurysm (AAA) without rupture (HCC) PVD (peripheral vascular disease) (HCC) Bilateral carotid artery disease, unspecified type (HCC) Lightheadedness Dizziness Procedures Stress test (Lexiscan) Josef Brooks MD [address] [place], [place] [id number] Health System Stress Lab [address] [place] [address] StatusReasonSpecialtyDiagnoses / ProceduresReferred By ContactReferred To ContactOpenRadiology Diagnoses Spinal stenosis of lumbar region, unspecified whether neurogenic claudication present DDD (degenerative disc disease), lumbar Procedures MRI LUMBAR SPINE WO CONTRAST Deion Fritz, ELECTRIC BLANKET WIRER - [facility] [address] [place] [address] SpecialtyDiagnoses / ProceduresReferred By ContactReferred To ContactRadiology Diagnoses Right sided abdominal pain Procedures CT ABDOMEN PELVIS W IV CONTRAST Additional Contrast? Oral CT ABDOMEN PELVIS W IV CONTRAST Additional Contrast? Oral Osmar Rodriguez MD [address] [place] [address] [place] [address] Referral IDStatusReasonStart DateExpiration DateVisits RequestedVisits [id number] / Procedures Referred By ContactReferred To ContactRadiology Diagnoses Chronic right hip pain Procedures MRI HIP RIGHT WO CONTRAST Osmar Rodriguez MD [address] [place] [address] [place] [address] Referral IDStatusReasonStart DateExpiration DateVisits RequestedVisits [id number]/19/[id number] / Procedures Referred By ContactReferred To ContactRadiology Diagnoses Recurrent abdominal hernia without obstruction or gangrene, unspecified hernia type Right lower quadrant abdominal mass Procedures CT ABDOMEN PELVIS W IV CONTRAST Additional Contrast? Oral Osmar Rodriguez MD [address] [facility] [address] [place] [address] Referral IDStatusReasonStart DateExpiration DateVisits RequestedVisits [id number]/1/[id number] / Procedures Referred By ContactReferred To Contact Diagnoses Gastrointestinal hemorrhage, unspecified gastrointestinal hemorrhage type Gastric ulcer without hemorrhage or perforation, unspecified chronicity Procedures EGD Renuka Angeles MD [address] [facility] [place] [id number] Referral IDStatusReasonStart DateExpiration DateVisits RequestedVisits [id number] [id number] Discharge Instructions * Instructions* Chago Langston II, PA-C - 01/13/2019 Return for patient blood work in 2 days and then follow with your family practitioner * Attachments The following attachments cannot be sent through Care Everywhere. * Hyponatremia (Moldovan) * Lightheadedness or Faintness (Moldovan) documented in this encounter* Instructions* Mukesh Marley MD - 02/23/2019 You do not have a blood clot in your aorta please see your vascular doctor if you are having issues. documented in this encounter* Attachments The following attachments cannot be sent through Care Everywhere. * Contusion: Hand (Moldovan) documented in this encounter* Attachments The following attachments cannot be sent through Care Everywhere. * BPPV (Benign Paroxysmal Positional Vertigo) (Moldovan) documented in this encounter* Attachments The following attachments cannot be sent through Care Everywhere. * Back Pain (Moldovan) * Pneumonia (Moldovan) documented in this encounter* Instructions* Wesly Whitten [...] be sent through Care Everywhere. * Pneumonia (Moldovan) documented in this encounter* Attachments The following attachments cannot be sent through Care Everywhere. * Groin Strain (Moldovan) documented in this encounter* Instructions* Deion Loaiza [...] be sent through Care Everywhere. * Osteoarthritis (Moldovan) * UTI (Urinary Tract Infection): Female (Moldovan) documented in this encounter* Attachments The following attachments cannot be sent through Care Everywhere. * COPD Exacerbation Plan (Moldovan) * Heart Failure: General Info (Moldovan) documented in this encounter* Discharge Instr - [...] Emergency Contact: Serafin Olivarez Mobile Relation: Child Sack Sewer needed? No Past Surgical History: Past Surgical History: Procedure Laterality Date AORTA SURGERY 05/2016 [facility] CARDIAC CATHETERIZATION heart stent x3 CARDIAC CATHETERIZATION Left 02/25/2018 Right Ulnar/[facility]/ CARDIAC SURGERY CHOLECYSTECTOMY FEMORAL BYPASS HYSTERECTOMY VASCULAR SURGERY blood clot removed after hysto Immunization History: Immunization History Administered Date(s) Administered Influenza Virus Vaccine 12/30/2013 Influenza, Quadv, 6 mo and older, IM, PF (Flulaval, Fluarix) 06/07/2018 Pneumococcal Conjugate 13-valent (Mrvumyf75) 06/07/2018 Pneumococcal Polysaccharide (Cuftexudi71) 04/26/2019 Tdap (Boostrix, Adacel) 01/07/2017 Active Problems: Patient Active Problem List Diagnosis Code Claudication in peripheral vascular disease ([facility]) I73.9 Stable angina ([facility]) I20.8 Abnormal nuclear stress test R94.39 Smoking greater than 40 pack years F17.210 CAD S/P percutaneous coronary angioplasty I25.10, Z98.61 Ventral hernia K43.9 Tobacco abuse counseling Z71.6 Tobacco abuse Z72.0 Atherosclerosis of artery of extremity with intermittent claudication ([facility]) I70.219 Dizziness R42 Intolerance of drug Z78.9 Atherosclerosis of both carotid arteries I65.23 Hypothyroidism E03.9 Diabetic ulcer of toe of left foot associated with type 2 diabetes mellitus, with fat layer exposed([facility]) E11.621, L97.522 Diabetic polyneuropathy associated with type 2 diabetes mellitus ([facility]) E11.42 Angina, class III ([facility]) I20.9 COPD with exacerbation ([facility]) J44.1 Hx of blood clots Z86.718 CAD (coronary artery disease) I25.10 Acute respiratory failure with hypoxia and hypercapnia ([facility]) J96.01, J96.02 COPD exacerbation ([facility]) J44.1 Community acquired bacterial pneumonia J15.9 COPD (chronic obstructive pulmonary disease) ([facility]) J44.9 Diabetes mellitus ([facility]) E11.9 Hypertension I10 Acute on chronic respiratory failure with hypoxemia ([facility]) J96.21 Pneumonia due to infectious organism J18.9 AMS (altered mental status) R41.82 Acute on chronic respiratory failure with hypercapnia ([facility]) J96.22 E. coli UTI N39.0, B96.20 Unstable angina ([facility]) I20.0 Acute coronary syndrome ([facility]) I24.9 S/P cardiac cath Z98.890 S/P angioplasty [...] Test Resulted MRSA 07/06/13 07/06/13 Oliva Tristan, ELECTRIC BLANKET 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 03/18/20 Seth Prajapati RN 07/02/2013 wound--right groin [...] (76.3 kg) Mental Status: {IP PT MENTAL STATUS:45037} IV Access: {[facility] [place] ACCESS:447619683} Nursing Mobility/ADLs: Walking {CHP DME ADLs:942672613} Transfer {CHP DME ADLs:736428240} Bathing {CHP DME ADLs:096142534} Dressing {CHP DME ADLs:097988272} Toileting {CHP DME ADLs:080828843} Feeding {CHP DME ADLs:045067886} Motion Picture Projectionist {CHP DME ADLs:367235341} Med Delivery { DUSTIN MED Delivery:894739407} Wound Care Documentation and Therapy: Wound 01/24/17 Toe (Comment which one) Left #2 left great toe (Active) Number of days: 1149 Elimination: Continence: Bowel: {YES / NO:} Bladder: {YES / NO:} Urinary Catheter: {Urinary Catheter:898825774} Colostomy/Ileostomy/Ileal Conduit: {YES / NO:} Date of Last BM: No intake or output data in the 24 hours ending 03/19/20 1159 No intake/output data recorded. Safety Concerns: { DUSTIN Safety Concerns:169123106} Impairments/Disabilities: { DUSTIN Impairments/Disabilities:130178467} Nutrition Therapy: Current Nutrition Therapy: { DUSTIN Diet List:060615155} Routes of Feeding: {[facility] DME Other Feedings:249016030} Liquids: {[facility] liquid thickness:03054} Daily Fluid Restriction: {CHP DME Yes amt example:193320557} Last Modified Barium Swallow with Video (Video Swallowing Test): {Done Not Done Date:} Treatments at the Time of Hospital Discharge: Respiratory Treatments: Oxygen Therapy: {Therapy; copd oxygen:65275} Ventilator: { CC Vent List:454479319} Rehab Therapies: {THERAPEUTIC INTERVENTION:7519776593} Weight Bearing Status/Restrictions: {[facility] Weight Bearin} Other Medical Equipment (for information only, NOT a DME order): {EQUIPMENT:226435767} Other Treatments: Patient's personal belongings (please select all that are sent with patient): {[facility] DME Belongings:022495839} RN SIGNATURE: {Esignature:956702167} CASE MANAGEMENT/SOCIAL WORK SECTION Inpatient Status Date: Readmission Risk Assessment Score: Readmission Risk Risk of Unplanned Readmission: 18 Discharging to Facility/ Agency Name: Address: Phone: Fax: Dialysis Facility (if applicable) Name: Address: Dialysis Schedule: Phone: Fax: Meter/Relay Technician/Non Destructive Tester signature: {Esignature:416409119} PHYSICIAN SECTION Prognosis: {Prognosis:7674725537} Condition at Discharge: {MH Patient Condition:976704298} Rehab Potential (if transferring to Rehab): {Prognosis:2716009560} Recommended Labs or Other Treatments After Discharge: Physician Certification: I certify the above information and transfer of Jonatan Olivarez is necessary for the continuing treatment of the diagnosis listed and that she requires {Admit to Appropriate Level of Care:97380} for {GREATER/LESS:578578151} 30 days. Update Admission H&P: {CHP DME Changes in HandP:980510134} PHYSICIAN SIGNATURE: {Esignature:888677227} * Additional Instructions* Kenneth Canales MD - 03/19/2020 Follow up in the Cardiology office in 2 weeks. Call to make an appointment. Following are numbers for [facility] ([place] [facility] Driver) [place] [facility] [place] Office [place] Office [place] Office [place] Office Follow up with your PCP in 1-2 weeks. Do not miss any doses of Aspirin and Plavix. documented in this encounter* Instructions* Fredy Billingsley APRN - FABIENNE - 03/21/2020 Return to the emergency department for worsening symptoms. * Attachments The following attachments cannot be sent through Care Everywhere. * Hip Pain (Moldovan) documented in this encounter* Instructions* Marita Munoz [...] Where can you learn more? Go to [email or web address] and sign in to your [employer] account. Enter V314 in the Search Health Information box to learn more about Learning About COPD. If you do not have an account, please click on the Sign Up Now link. Current as of: September 07, 2018Content Version: 12.4 9743-5394 [employer]. Care instructions adapted under license by [employer]. If you have questions about a medical condition or this instruction, always ask your healthcare professional. [employer] disclaims any warranty or liability for your use of this information. * Attachments The following attachments cannot be sent through Care Everywhere. * lisinopril (Moldovan) * metoprolol (oral/injection) (Moldovan) * COPD (Moldovan) documented in this encounter* Instructions* Corrine Jensen [...] taking more than one drug. This includes [id number] medicine and herb or dietary supplements. ? [...] this encounter Hospital Course * Oliva Tristan, ELECTRIC BLANKET 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 - 03/18/2020 9:30 AM EST Discharge Summary [...] therefore she was taken directly to the [facility] yesterday with Dr. Stephens. She was found to have severe single vessel CAD inthe RCA. She was admitted yesterday and will be transferred to [facility] this morning for Heart Cath and Stent [...] Problem List Diagnosis Date Noted Unstable angina ([facility]) 03/17/2020 Priority: High Angina, class III ([facility]) 02/25/2018 Priority: High Diabetic ulcer of toe of left foot associated with type 2 diabetes mellitus, with fat layer exposed([facility]) 01/24/2017 Priority: High Class: Chronic CAD S/P percutaneous coronary angioplasty 08/30/2013 Priority: High Diabetic polyneuropathy associated with type 2 diabetes mellitus ([facility]) 01/24/2017 Priority: Medium Class: Chronic Tobacco abuse 05/27/2014 Priority: Medium Ventral hernia 08/30/2013 Priority: Medium Acute coronary syndrome ([facility]) 03/17/2020 E. coli UTI 07/20/2019 AMS (altered mental status) 07/18/2019 Acute on chronic respiratory failure with hypercapnia ([facility]) 07/18/2019 Acute on chronic respiratory failure with hypoxemia ([facility]) 04/23/2019 Pneumonia due to infectious organism 04/23/2019 COPD (chronic obstructive pulmonary disease) ([facility]) Diabetes mellitus ([facility]) Hypertension Community acquired bacterial pneumonia 04/21/2019 COPD exacerbation ([facility]) 06/06/2018 COPD with exacerbation ([facility]) 06/05/2018 Acute respiratory failure with hypoxia and hypercapnia ([facility]) 06/05/2018 Hx of blood clots CAD (coronary artery disease) Tobacco abuse counseling 05/27/2014 Atherosclerosis of artery of extremity with intermittent claudication (HCC) 05/27/2014 Dizziness 05/27/2014 Intolerance of drug 05/27/2014 Atherosclerosis of both carotid arteries 05/27/2014 Hypothyroidism 05/27/2014 Abnormal nuclear stress test 01/22/2013 Smoking greater than 40 pack years 01/22/2013 Claudication in peripheral vascular disease (HCC) 11/06/2012 Stable angina ([facility]) 11/06/2012 Discharge Medications: Sher Jonatan Phillips Home Medication Instructions LISBETH:[id number] Printed on:03/18/20 3157 Medication Information albuterol (PROVENTIL) (2.5 MG/3ML) 0.083% [...] three times a day Blood Pressure Monitoring [facility] To monitor blood pressure as needed. Please order device that is covered by insurance. clopidogrel (PLAVIX) 75 MG tablet Take 1 tablet by mouth daily glycopyrrolate-formoterol (BEVESPI AEROSPHERE) 9-4.8 MCG/ACT AERO Inhale 2 puffs into the lungs 2 times daily ibuprofen (ADVIL;MOTRIN) 800 MG tablet Take 1 tablet by mouth every 8 hours as needed for Pain Incontinence Supply Disposable [facility] Incontinence pads 150 per month. Please order [...] none needed Other: None Disposition: Transfer to [facility] for tertiary care Follow up: Patient will be followed by HILDA Land CNP in 1-2 weeks CORE MEASURES on Discharge (if applicable) FAUSTO/ARB in CHF: Yes Statin in VA: NA ASA in VA: NA Statin in CVA: NA Antiplatelet in CVA: NA Total time spent on discharge services: 35 minutes Including the following activities: Evaluation and Management of patient Discussion with patient and/or surrogate about current care plan Coordination with Case Management and/or Non Destructive Tester Coordination of care with Consultants (if applicable) Coordination of care with Receiving Facility Physician (if applicable) Completion of DME forms (if applicable) Preparation of Discharge Summary Preparation of Medication Reconciliation Preparation of Discharge Prescriptions Signed: Oliva Tristan APRN, JAVA SOFTWARE ENGINEER-C 03/18/2020, 9:32 AM Associated attestation - Caren Mera MD - 03/18/2020 9:51 AM EST I personally evaluated and examined the patient face to face in conjunction with the APC and agree with the management and disposition of the patient. My sims findings are: Patient ID: Jonatan Olivarez [id number] Admission date: 03/17/2020 Discharge date: 03/18/2020 Admitting Physician: Caren Mera MD Primary Care Physician: HILDA Land CNP Primary Discharge Diagnoses: Patient Active Problem List Diagnosis Date Noted Unstable angina (HCC) 03/17/2020 Priority: High Angina, class III ([facility]) 02/25/2018 Priority: High Diabetic ulcer of toe of left foot associated with type 2 diabetes mellitus, with fat layer exposed([facility]) 01/24/2017 Priority: High Class: Chronic CAD S/P [...] organism 04/23/2019 COPD (chronic obstructive pulmonary disease) ([facility]) Diabetes mellitus ([facility]) Hypertension Community acquired bacterial pneumonia 04/21/2019 COPD exacerbation ([facility]) 06/06/2018 COPD with exacerbation ([facility]) 06/05/2018 Acute respiratory failure with hypoxia and hypercapnia ([facility]) 06/05/2018 Hx of blood clots CAD (coronary artery disease) Tobacco abuse counseling 05/27/2014 Tobacco abuse 05/27/2014 Atherosclerosis of artery of extremity with intermittent claudication ([facility]) 05/27/2014 Dizziness 05/27/2014 Intolerance of drug 05/27/2014 Atherosclerosis of both carotid arteries 05/27/2014 Hypothyroidism 05/27/2014 Abnormal nuclear stress test 01/22/2013 Smoking greater than 40 pack years 01/22/2013 Claudication in peripheral vascular disease ([facility]) 11/06/2012 Stable angina ([facility]) 11/06/2012 Additional Diagnoses: Diagnosis Date Asthma Back problem Bulging discs (2 or 3), 1 cracked & 1 blackened discs CAD (coronary artery disease) stents x 3; BMS to LAD 12/2010;SPARKLE to RCA 01/2011, NL LV COPD (chronic obstructive pulmonary disease) ([facility]) Depression Diabetes mellitus ([facility]) Edema chevy legs feet H/O cardiac catheterization 01/01/2011 H/O echocardiogram 09/03/2019 EF 65% evidence of mild grade I diastolic dysfunction seen Hernia of abdominal wall 2012 History of cardiac cath 03/17/[address] [facility] Michael/Dr. Stephens/Left Radial History of cardiovascular stress [...] ms QTc Calculation (Bazett) 396 ms P [place] 55 degrees R [place] 55 degrees T [place] 60 degrees Troponin Collection Time: 03/17/20 8:30 [...] Discharge Medications: Jonatan Olivarez Home Medication Instructions LISBETH:[id number] Printed on:03/18/20 0966 Medication Information albuterol (PROVENTIL) (2.5 MG/3ML) 0.083% [...] three times a day Blood Pressure Monitoring [facility] To monitor blood pressure as needed. Please order device that is covered by insurance. clopidogrel (PLAVIX) 75 MG tablet Take 1 tablet by mouth daily glycopyrrolate-formoterol (BEVESPI AEROSPHERE) 9-4.8 MCG/ACT AERO Inhale 2 puffs into the lungs 2 times daily ibuprofen (ADVIL;MOTRIN) 800 MG tablet Take 1 tablet by mouth every 8 hours as needed for Pain Incontinence Supply Disposable [facility] Incontinence pads 150 per month. Please order [...] DO - 03/19/2020 11:19 AM EST Eliseo Jinrikisha Driver Discharge Note Name: Jonatan Olivarez Date of : 1960 Social Security Number: [id number] Date of Admission: 03/18/2020 Date of Discharge: 03/19/2020 Admitting physician: Ema Miller MD Discharge Attending: Kenneth Canales MD Primary Care Physician: Vahid Nagy, ELECTRIC BLANKET 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 Consultants: Cardiology Discharge to Home Condition at discharge: Stable HOSPITAL ADMISSION PROBLEM LIST: Patient Active Problem List Diagnosis Claudication in peripheral vascular disease (HCC) Stable angina ([facility]) Abnormal nuclear stress test Smoking greater than 40 pack years CAD S/P percutaneous coronary angioplasty Ventral hernia Tobacco abuse counseling Tobacco abuse Atherosclerosis of artery of extremity with intermittent claudication ([facility]) Dizziness Intolerance of drug Atherosclerosis of both carotid arteries Hypothyroidism Diabetic ulcer of toe of left foot associated with type 2 diabetes mellitus, with fat layer exposed([facility]) Diabetic polyneuropathy associated with type 2 diabetes mellitus ([facility]) Angina, class III ([facility]) COPD with exacerbation ([facility]) Hx of blood clots CAD (coronary artery disease) Acute respiratory failure with hypoxia and hypercapnia ([facility]) COPD exacerbation ([facility]) Community acquired bacterial pneumonia COPD (chronic obstructive pulmonary disease) ([facility]) Diabetes mellitus ([facility]) Hypertension Acute on chronic respiratory failure with hypoxemia ([facility]) Pneumonia due to infectious organism AMS (altered mental status) Acute on chronic respiratory failure with hypercapnia ([facility]) E. coli UTI Unstable angina ([facility]) Acute coronary syndrome ([facility]) S/P cardiac cath S/P angioplasty with stent [...] cardiology 4 weeks Follow up with other testing consultant physicians at their directions. Discharge Medications: Jonatan Olivarez Home Medication Instructions LISBETH:[id number] Printed on:03/19/20 7438 Medication Information albuterol (PROVENTIL) (2.5 MG/3ML) 0.083% [...] three times a day Blood Pressure Monitoring [facility] To monitor blood pressure as needed. Please order device that is covered by insurance. clopidogrel (PLAVIX) 75 MG tablet Take 1 tablet by mouth daily glycopyrrolate-formoterol (BEVESPI AEROSPHERE) 9-4.8 MCG/ACT AERO Inhale 2 puffs into the lungs 2 times daily ibuprofen (ADVIL;MOTRIN) 800 MG tablet Take 1 tablet by mouth every 8 hours as needed for Pain Incontinence Supply Disposable [facility] Incontinence pads 150 per month. Please order [...] discharge instructions reviewed with patient and nursing. Natoma Jinrikisha Driver Attending Document Review Specialist Addendum: I have reviewed and performed [...] questions. Joseph Hope DO, FACAlan, KESHA JUDD Natoma Jinrikisha Driver [facility] this encounter Chief Complaint and [...] DATE CREATED AUTHOR AUTHOR'S ORGANIZ ATION 03/05/[address] [facility] DATE CREATED AUTHOR AUTHOR'S ORGANIZ ATION 12/29/2019 [facility] DATE CREATED AUTHOR AUTHOR'S ORGANIZ ATION 10/07/2021 [facility] Demand Generation Manager DATE CREATED AUTHOR AUTHOR'S ORGANIZ ATION 12/27/2021 [facility] DATE CREATED AUTHOR AUTHOR'S ORGANIZ ATION 06/09/2022 [facility] DATE CREATED AUTHOR AUTHOR'S ORGANIZ ATION 11/24/[address] 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 -fell on left side onto pavement- denies head injury or LOCNeck PainArm PainleftBack PainlowerHeadache ReasonCommentsAbdominal PainPatient had lumbar mri today, [facility] contacted us to inform us that they [...] doppler w color complete Josef Brooks MD [address] [place] [address] [place] [address] [facility] [address] [place] [address] StatusReasonSpecialtyDiagnoses / ProceduresReferred By ContactReferred To ContactNot Required - RecondoCardiology / Stress Lab Diagnoses ASHD (arteriosclerotic heart disease) S/P angioplasty with stent Mixed hyperlipidemia Essential hypertension Tobacco abuse counseling Abdominal aortic aneurysm (AAA) without rupture (HCC) PVD (peripheral vascular disease) (HCC) Bilateral carotid artery disease, unspecified type (HCC) Lightheadedness Dizziness Procedures Stress test (Lexiscan) Josef Brooks MD [address] [place] [address] [place] [address] [facility] [address] [place] [address] StatusReasonSpecialtyDiagnoses / ProceduresReferred By ContactReferred To ContactAuthorizedCardiology Diagnoses ASHD (arteriosclerotic heart disease) S/P angioplasty with stent Mixed hyperlipidemia Essential hypertension Tobacco abuse counseling Bilateral carotid artery disease, unspecified type (HCC) PVD (peripheral vascular disease) (HCC) Abdominal aortic aneurysm (AAA) without rupture (HCC) SOB (shortness of breath) Procedures Referral to Cardiac Cath WI CATH PLMT L HRT & ARTS W/NJX & ANGIO IMG S&I Josef Brooks MD [address] [place] [address] [place] [address] ReasonCommentsBack PainLumbar, chronic, worse since this AM. [...] HC L HEART W LV & CORONARY [facility] ReasonCommentsAbdominal PainRLQ pain, ongoing for 4 weeks. [...] S/P cardiac cath S/P angioplasty with stent clinical lab technologist Procedures DIAGNOSTIC CARDIAC SENIOR MARKETING COORDINATOR PROCEDURE Ema Miller MD [address] [facility] ReasonCommentsHip Painpt states onset 2 days ago, no known injury.Otherpt states she had one heart stent placed on Saturday at [facility]. Pt states I have been feeling funny ReasonCommentsHip Painfell 2 days ago on rt hip C/O pain in rt hip and rt posterior back. Denies LOCStatusReasonSpecialtyDiagnoses / Procedures Referred By ContactReferred To ContactClosedRadiology Diagnoses Spinal stenosis, lumbar region without neurogenic claudication Other intervertebral disc degeneration, lumbar region Spinal stenosis, lumbar region without neurogenic claudication Procedures HC MRI-SPINE LUMBAR WO CONTRAST Deion Fritz, ELECTRIC BLANKET 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 [address] [place] [address] [facility] [address] [place] [address] StatusReasonSpecialtyDiagnoses / ProceduresReferred By ContactReferred To Contact Diagnoses COVID-19 COVID-19 acute resp failure with hypoxemia Chago Boyd DO [address] [facility] [address] [place] [address] [facility] StatusReasonSpecialtyDiagnoses / ProceduresReferred By ContactReferred To ContactAuthorizedCardiology / IP Unit Diagnoses Abnormal stress test CAD S/P percutaneous coronary angioplasty Essential hypertension Mixed hyperlipidemia Tobacco abuse counseling PVD (peripheral vascular disease) (HCC) Bilateral carotid artery disease, unspecified type (HCC) Procedures Referral to Cardiac Cath WI CATH PLMT L HRT & ARTS W/NJX & ANGIO IMG S&I Josef Brooks MD [address] [place] [address] [place] [address] 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 Pt fell to floor in bedroom after [...] Additional Contrast? Oral Osmar Rodriguez MD [address] [place] [address] Referral IDStatusReasonStart DateExpiration DateVisits RequestedVisits [id number] 2 days ago. C/o left shoulder bilateral knee painReasonCommentsCoughOnset 1 week ago, productive. Pt saw PCP 5 days ago and was ordered to have a chest Xray, but did not yet.StatusReasonSpecialtyDiagnoses / ProceduresReferred By ContactReferred To Contact Diagnoses Community acquired bacterial pneumonia Gordo De Santiago MD [address] [place] [address], [place] [address] [facility] SpecialtyDiagnoses / ProceduresReferred By ContactReferred To ContactRadiology Diagnoses Chronic right hip pain Procedures MRI HIP RIGHT WO CONTRAST Osmar Rodriguez MD [address] [place] [address] [address] [place] [address] Referral IDStatusReasonStart DateExpiration DateVisits RequestedVisits [id number] / Procedures Referred By ContactReferred To ContactRadiology Diagnoses Recurrent abdominal hernia without obstruction or gangrene, unspecified hernia type Right lower quadrant abdominal mass Procedures CT ABDOMEN PELVIS W IV CONTRAST Additional Contrast? Oral Osmar Rodriguez MD [address] [place] [address] [address] [place] [address] Referral IDStatusReasonStart DateExpiration DateVisits RequestedVisits [id number] MassComplains of left abd mass/painReasonCommentsFallPatient fell on [...] Augmentin. Pt administered 50 mcg of Fentanyl AIR TRAFFIC SUPERVISOR.SpecialtyDiagnoses / ProceduresReferred By ContactReferred To Contact Diagnoses Unable to care for self Osmar Rodriguez MD [address] [facility] [address] [place] [address] Phone: tel: fax: [facility] [address] [place] [address] Referral IDStatusReasonStcenterbrook DateExpiration DateVisits RequestedVisits [id number] PainRight hip pain ongoing the past few [...] cystitis without hematuria Nat Reynolds MD [address] [facility] [place] [address] Phone: tel: fax: Referral IDStatusReasonWoodson DateExpiration DateVisits RequestedVisits [id number] Medical History (unrecognize d section and content) Description Patient gave verbal consent for [facility] 07/09/2019 History of hypertension 02/19/2019 A recent [...] mouth 2 times daily as needed for Qvdilizrjpdv52/19/2025 ferrous sulfate (IRON 325) 325 (65 Fe) [...] Administer over 1 Hours, ONCE, On 12/04/20 [id number], For 1 dose * 1700 (New Bag [...] - Provider: Erika Ramesh RN) Medication Order// xmfmavhm-crlcxravar-qyvdnxrxq (NEOSPORIN) 400-5-5000 ointment Starting on Jenn 01/12/21 [...] sodium chloride 0.9 % 50 mL IVPB (Vffl7Hrt)(Linked Group 1) 3,375 mg, IntraVENous, at 12.5 mL/hr, Administer over 240 Minutes, EVERY 8 HOURS, First dose on Sat08/06/24 at 2200, For 7 days, Use 20mm (Blue) Dirp3Zfq Adapter Preparation instructions: Attach medication vial to one 20mm (Blue) Allj4Fwl adapter. Rai fluid bag with adapter, mix, [...] * 09 (Not Given - Provider: Louise Mccyo, RN - Reason: IV Fluid Infusing) * [...] or Central Line = 20 mL/lumen * 8033 (Given - Provider: Demetria Stout RN) zolpidem (AMBIEN) tablet 10 mg 10 mg, Oral, NIGHTLY PRN, Starting on Jenn 08/06/24 at 1449, Until Discontinued, Sleep Order Group 1: piperacillin-tazobactam (ZOSYN) 4,500 mg in sodium chloride 0.9 % 100 mL IVPB (Ahxl7Xqn) (COMPLETED) 4,500 mg, IntraVENous, at 200 mL/hr, Administer over 30 Minutes, ONCE, On Jenn 08/06/24 at 1530, For 1dose, Use 20mm (Blue) Rjkl6Mth Adapter Preparation instructions: Attach medication vial to one 20mm(Blue) Cyjd0Ixl adapter. Rai fluid bag with adapter, mix, and administer per order. Followed by piperacillin-tazobactam (ZOSYN) 3,375 mg in sodium chloride 0.9 % 50 mL IVPB (Dvai0Kik)Jump to med 3,375 mg, IntraVENous, at 12.5 mL/hr, Administer over 240 Minutes, EVERY 8 HOURS, First dose on Thu08/06/24 at 2200, For 7 days, Use 20mm (Blue) Golt5Cxt Adapter Preparation instructions: Attach medication vial to one 20mm (Blue) Xhqk3Hcr adapter. Rai fluid bag with adapter, mix, [...] Fibrillation (NVAF) * 2316 (Given - Provider: Anuhska Zimmerman RN) * 0849 (Given - Provider: [...] * 2200 (Due - Provider: Artur Cordoba [facility]) methylPREDNISolone sod suc(PF) (Solu-MEDROL) injection 125 [...] ProviderActiveStart: January 20, 2024 Ariana Abrams , CEMENT TILE MAKER-BCOther ProviderActiveStart: January 20, 2024 Ziggy Barraza MDAttending Provider, Other ProviderActiveStart: January 20, 2024 Luis Fernando Strauss MDOther ProviderActiveStart: January 20, 2024 Asia Guzman LPNOt ProviderActiveStart: January 20, 2024 Americo Gomez MDOther ProviderActiveStart: January 20, 2024 Michelle Joyce JAVA SOFTWARE ENGINEER-COther ProviderActiveStart: January 20, 2024 Bjorn Ramsey MDOther [...] January 20, 2024 Artur Guo , [facility] Provider, Other ProviderActiveStart: January 20, 2024 Team MemberRelationshipSpecialtyStart DateEnd Date Osmar Rodriguez MD [address] [place] [address] [address] [place] [address] PCP - GeneralFamily Onmqboyc07/30/21Team MemberRelationshipSpecialtyStart Date End Date Osmar Rodriguez MD [address] [place] [address] [address] [place] [address] PCP - GeneralFamily Mhellmcp62/30/21Team MemberRelationshipSpecialtyStart Date End Date Osmar Rodriguez MD [address] [place] [address] [address] [place] [address] PCP - GeneralFamily Ibbceznd12/30/21Team MemberRelationshipSpecialtyStart Date End Date Osmar Rodriguez MD [address] [place] [address] [address] [place] [address] PCP - GeneralFamily Jcgrkrnc67/30/21Team MemberRelationshipSpecialtyStart Date End Date Vahid Nagy, 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 [address] [place] [address] PCP - GeneralCertified Nurse Utyyjfphekgk68/27/19Team MemberRelationship SpecialtyStart DateEnd Date Osmar Rodriguez MD [address] [place] [address] [address] [place] [address] PCP - GeneralFamily Adweppsk91/30/21Team MemberRelationshipSpecialtyStart Date End Date Osmar Rodriguez MD [address] [place] [address] [address] [place] [address] PCP - GeneralFamily Eillgkcg48/30/21Team MemberRelationshipSpecialtyStart Date End Date Osmar Rodriguez MD [address] [place] [address] [address] PCP - GeneralFamily Uxeskznk13/30/21Team MemberRelationshipSpecialtyStart Date End Date Vahid Nagy, 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 [address] [place] [address] PCP - GeneralCertified Nurse Iurdlomjsqsf66/27/19Te MemberRelationship SpecialtyStart DateEnd Date Osmar Rodriguez MD [address] [place] [address] [address] PCP - GeneralFamily Qquxdjnu01/30/21Te MemberRelationshipSpecialtyStart Date End Date Osmar Rodriguez MD [address] [place] [address] [place] [id number] PCP - GeneralFamily Xumcrsrc04/30/21Team MemberRelationshipSpecialtyStart Date End Date Osmar Rodriguez MD [address] [place] [address] [address] PCP - GeneralFamily Szljjodo08/30/21Team MemberRelationshipSpecialtyStart Date End Date Osmar Rodriguez MD [address] [place] [address] [address] PCP - GeneralFamily Pbrwhkdn69/30/21Team MemberRelationshipSpecialtyStart Date End Date Osmar Rodriguez MD [address] [place] [address] [address] PCP - GeneralFamily Ixhnfajz13/30/21 Team Status: Active Member Role Status Dates Carlo Grimaldo DO Emergency Provider Active Sta rt: January 19, 2024 NON STAFFPrimary Care ProviderActiveStart: January 19, 2024 Matty Ocampo Provider, Attending ProviderActiveStart: January 19, 2024 Team MemberRelationshipSpecialtyStart DateEnd Date Osmar Rodriguez MD [address] [place] [address] [address] [place] [address] PCP - GeneralFamily Yqmtlcjy86/7/24Team MemberRelationshipSpecialtyStart DateEnd Date Osmar Rodriguez MD [address] [place] [address] [address] [place] [address] PCP - GeneralFamily Pvqprmez63/7/24Team MemberRelationshipSpecialtyStart DateEnd Date Osmar Rodriguez MD [address] [place] [address] [address] [place] [address] PCP - GeneralFamily Abwqcycp41/7/24Team MemberRelationshipSpecialtyStart DateEnd Date Osmar Rodriguez MD [address] [place] [address] [address] [place] [address] PCP - GeneralFamily Nkkuyfjo47/7/24Team MemberRelationshipSpecialtyStart DateEnd Date Osmar Rodriguez MD [address] [place] [address] [address] [place] [address] PCP - GeneralFamily Hswkkujd42/7/24Team MemberRelationshipSpecialtyStart DateEnd Date Osmar Rodriguez MD [address] [place] [address] [address] [place] [address] PCP - GeneralFamily Gfxbtqkh30/7/24Team MemberRelationshipSpecialtyStart DateEnd Date Osmar Rodriguez MD [address] [place] [address] [address] [place] [address] PCP - GeneralFamily Eyznhpvx20/30/21Team MemberRelationshipSpecialtyStart Date End Date Osmar Rodriguez MD [address] [place] [address] [address] [place] [address] PCP - GeneralFamily Giletybp77/30/21Team MemberRelationshipSpecialtyStart Date End Date Osmar Rodriguez MD [address] [place] [address] [place] [address] PCP - GeneralFamily Jgutdpwg22/30/21Team MemberRelationshipSpecialtyStart Date End Date Osmar Rodriguez MD [address] [place] [address] [place] [address] PCP - GeneralFamily Fzpnrmgi37/30/21Team MemberRelationshipSpecialtyStart Date End Date Osmar Rodriguez MD [address] [place] [address] [address] [place] [address] PCP - GeneralFamily Medicine12/07/24Team MemberRelationshipSpecialtyStart DateEnd Date Osmar Rodriguez MD [address] [place] [address] [place] [address], [place] [address] PCP - GeneralFamily Ylzztkhw86/7/24Team MemberRelationshipSpecialtyStart DateEnd Date Osmar Rodriguez MD [address] [place] [address] [address] [place] [address] PCP - GeneralFamily Medicine12/07/24 Goals (unrecognized section [...] BE BASED ON THE PRIMARY CLINICAL RECORDS. [facility] [email or web address] [facility]. provides no warranty or guarantee of the accuracy or completeness of information in this document.
--- NOTE | 2025-02-16 09:40 | ECG_ITS ---
[facility] Test Date: 2025-02-16 Pat Name: JONATAN SPENCER Department: Room: 2161 Gender: Female Board Certified Arts Therapist: : [id number] Requested By: [id number] Order Number: [id number] Reading MD: JULIA ANSARI M.D. Measurements Intervals [place] Rate: 98 P: 62 MS: 134 QRS: -20 QRSD: 98 T: 81 QT: 341 QTc: 436 Interpretive Statements SINUS RHYTHM WITH OCCASIONAL SUPRAVENTRICULAR PREMATURE COMPLEXES POSSIBLE LEFT ATRIAL ENLARGEMENT [-0.1mV P WAVE IN V1/V2] Abnormal ECG Compared to ECG 07/16/2023 23:22:29 Incomplete right bundle-branch block no longer present Indeterminate axis no longer present Electronically Signed On 02-16-2025 21:35:25 EST by JULIA ANSARI M.D.
[2025-02-16] MEDS: ACETAMINOPHEN 325 MG TABLET 975 MG PO (10:08)
[2025-02-16] MEDS: POTASSIUM CHLORIDE 10 MEQ ER TABLET 40 MEQ PO (10:08)
[2025-02-16 10:25] LABS: Iron 6.0 ug/dL (50.0-170.0); Percent Iron Saturation 4.1 %; Total Iron Binding Capacity 147.0 ug/dL (250.0-450.0)
[2025-02-16 10:28] LABS: Alanine Aminotransferase 14 U/L (14-59); Albumin Globulin Ratio 0.6; Albumin Level 2.1 g/dL (3.4-5.0); Alkaline Phosphatase 121 U/L (46-116); Aspartate Amino Transferase 18 U/L (15-37); Globulin 3.8 g/dL; Total Protein 5.9 g/dL (6.4-8.2)
[2025-02-16 11:14] LABS: Ferritin 168.0 ng/mL (8.0-252.0); Folate 27.00 ng/mL (8.60-58.90)
--- NOTE | 2025-02-16 11:24 | PM.HP ---
HPI H&P: HPI History of Present Illness Chief complaint: CONFUSION, WEAKNESS UTI AMS Narrative: Mrs. Olivarez is a 64-year-old female who came to the emergency room complaining of lower extremities rash, pain and discomfort. No fall or trauma. Mostly her pain is in the right hip. Patient is a smoker. She smokes 1 pack daily. Patient developed rash on lower extremities. Both legs. Some on her upper extremities. No fever or chills. No abdominal pain. No nausea or vomiting. Opioid HPI Opioid Management Most Recent Pain and Opioid Data: Last Pain Scale 10 Today, 11:02 Last Pain Assessment Today, 11:02 Last MAR Pain Assessment 02/15/25, 14:46 Last ORT Total Score 1 Today, 09:34 Last ORT Risk Category Low Risk Today, 09:34 Ur Phencyclidine Scrn, (NEGATIVE) Negative Today, 03:26 Review of Systems ROS Narrative Generalized weakness and fatigue, nonfocal. Confusion and disorientation. Status of ROS 10 or more systems reviewed and unremarkable except as noted in history and below [facility] Medical History (Updated 02/16/25 @ 11:29 by Alin Laguerre MD) Acute exacerbation of chronic obstructive pulmonary disease ?J44.1 - Chronic obstructive pulmonary disease with (acute) exacerbation (ICD-10) Acute and chronic respiratory failure with hypoxia ?J96.21 - Acute and chronic respiratory failure with hypoxia (ICD-10) Acute exacerbation of CHF (congestive heart failure) ?I50.9 - Heart failure, unspecified (ICD-10) Smoker ?F17.200 - Nicotine dependence, unspecified, uncomplicated (ICD-10) Fall ?W19.XXXA - Unspecified fall, initial encounter (ICD-10) Oxygen dependent ?Z99.81 - Dependence on supplemental oxygen (ICD-10) CHF (congestive heart failure) ?I50.9 - Heart failure, unspecified (ICD-10) HTN (hypertension) ?I10 - Essential (primary) hypertension (ICD-10) Heart attack ?I21.9 - Acute myocardial infarction, unspecified (ICD-10) COPD (chronic obstructive pulmonary disease) ?J44.9 - Chronic obstructive pulmonary disease, unspecified (ICD-10) Surgical History Stented coronary artery ?Z95.5 - Presence of coronary angioplasty implant and graft (ICD-10) Family History (Updated 02/16/25 @ 11:01 by Sejal Flowers RN) Sister Family history of cancer Mother Family history of COPD (chronic obstructive pulmonary disease) Social History (Updated 02/16/25 @ 11:00 by Sejal Flowers RN) Within the past year, how often did you have a drink containing alcohol: never Score interpretation: A score less than 3 is consistent with normal alcohol consumption. Smoking status: Current every day smoker Non-prescribed substance use: denies use Highest level of school completed/degree received: high school graduate Little interest or pleasure in doing things: nearly every day Feeling down, depressed, or hopeless: nearly every day Meds Home Medications and Allergies Home Medications ?Medication ?Instructions ?Recorded ?Confirmed ?Type losartan 100 mg tablet 100 mg PO QDAY 09/24/22 02/16/25 History methocarbamol 750 mg tablet 750 mg PO QID 09/24/22 02/16/25 History gabapentin 800 mg tablet 800 mg PO TID 03/18/23 02/16/25 History (Neurontin) levothyroxine 150 mcg tablet 150 mcg PO DAILY 03/18/23 02/16/25 History (Synthroid) liothyronine 5 mcg tablet 10 mcg (2 x 5 mcg) PO ACB #60 tabs 03/20/23 07/17/23 Rx liothyronine 5 mcg tablet (Cytomel) 10 mcg (2 x 5 mcg) PO DAILY #60 03/20/23 07/17/23 Rx tabs albuterol sulfate 90 mcg/actuation 2 puff inhalation QID PRN 07/17/23 02/16/25 History aerosol inhaler shortness of breath or wheezing furosemide 20 mg tablet 20 mg PO DAILY 07/17/23 02/16/25 History isosorbide mononitrate 30 mg 30 mg PO DAILY 07/17/23 07/17/23 History tablet,extended release 24 hr metoprolol succinate 25 mg 25 mg PO DAILY 07/17/23 02/16/25 History tablet,extended release 24 hr venlafaxine 75 mg capsule,extended 75 mg PO DAILY 07/17/23 07/17/23 History release 24 hr zolpidem 10 mg tablet 5 mg PO QPM PRN sleep 07/17/23 02/16/25 History meloxicam 7.5 mg tablet 7.5 mg PO DAILY PRN pain #20 tabs 02/15/25 Rx albuterol sulfate 2.5 mg/3 mL 2.5 mg inhalation Q6H PRN 02/16/25 02/16/25 History (0.083 %) solution for nebulization shortness of breath or wheezing amitriptyline 10 mg tablet 10 mg PO .QHS 02/16/25 02/16/25 History amlodipine 10 mg tablet 10 mg PO DAILY 02/16/25 02/16/25 History apixaban 5 mg tablet (Eliquis) 2.5 mg PO Q12H 02/16/25 02/16/25 History ascorbic acid (vitamin C) 500 mg 500 mg PO BID 02/16/25 02/16/25 History tablet aspirin 81 mg chewable tablet 1 tab PO DAILY 02/16/25 02/16/25 History budesonide-formoterol HFA 160 2 puff inhalation Q12H 02/16/25 02/16/25 History mcg-4.5 mcg/actuation aerosol inhaler (Symbicort) ergocalciferol (vitamin D2) 1,250 1,250 mcg PO QWEEK 02/16/25 02/16/25 History mcg (50,000 unit) capsule hydroxyzine HCl 25 mg tablet 25 mg PO Q6H PRN anxiety 02/16/25 02/16/25 History multivitamin with folic acid 400 1 tab PO DAILY 02/16/25 02/16/25 History mcg tablet (Daily-Katja (with folic acid)) oxycodone-acetaminophen 7.5 mg-325 1 tab PO Q6H PRN pain 02/16/25 02/16/25 History mg tablet pravastatin 40 mg tablet 40 mg PO .QHS 02/16/25 02/16/25 History Allergies Allergy/AdvReac Type Severity Reaction Status Date / Time codeine AdvReac Intermediate Verified 09/24/22 17:23 ceclor AdvReac Intermediate Uncoded 09/24/22 17:23 Exam Narrative Exam Narrative: Patient is very cachectic and frail in appearance. She appears to be 20 years older than her age. Bitemporal muscle wasting. Upper and lower extremities muscle wasting atrophy. Skin exam showed diffuse macular rash with superficial ulcerations involving her lower extremities anteriorly, medially and laterally with devious degrees of development and healing. She has similar rash on her upper extremities but not on her trunk. Patient is awake but not fully alert. Disoriented and confused. Moving her extremities. Able to answer questions. Chest exam revealed diminished breath sound. Heart is regular. Abdomen soft, scaphoid in appearance. Constitutional Vital Signs, click to edit/add: Last Vital Signs Temp 98.4 F 02/16/25 09:34 Pulse 97 H 02/16/25 09:34 Resp 18 02/16/25 09:34 BP 131/67 02/16/25 09:34 Pulse Ox 97 02/16/25 10:00 O2 Del Method Nasal Cannula 02/16/25 10:00 O2 Flow Rate 2 02/16/25 10:00 Results Labs Labs: Short CBC 02/16/25 Range/Units 03:18 WBC 18.0 H (4.0-11.0) 10^3/uL Hgb 8.7 L (12.0-16.0) g/dL Hct 27.4 L (36.0-48.0) % Plt Count 321 (150-450) 10^3/uL BMP 02/16/25 03:18 Sodium 137 Potassium 3.4 L Chloride 101 Carbon Dioxide 27.6 BUN 14.0 Creatinine 0.81 Glucose 171 H Calcium 8.9 Liver Function 02/16/25 Range/Units 03:18 Total Bilirubin 0.4 (0.2-1.0) mg/dL Direct Bilirubin 0.1 (0.0-0.2) mg/dL AST 18 (15-37) U/L ALT 14 (14-59) U/L Alkaline Phosphatase 121 H (46-116) U/L Albumin 2.1 L (3.4-5.0) g/dL Urine 02/16/25 Range/Units 03:26 Urine Color Lt. yellow (YELLOW) Urine Clarity Clear (CLEAR) Urine pH 6.0 (5.0-9.0) Ur Specific Prince 1.010 (1.005-1.025) Urine Protein 30 A (NEG/TRACE) mg/dL Urine Glucose (UA) Negative (NEGATIVE) mg/dL Assessment and Plan Assessment and Plan (1) Encephalopathy: Plan Encephalopathy, likely metabolic. Requested CT head which came back negative for acute intracranial process. No unilateral deficit. Unlikely primary acute SEED TESTER insult. Patient has COPD. She may have hypercapnia. Requested a blood gas. Also requested toxicology screen which came back positive for oxycodone. Patient may be having toxic encephalopathy. Diffuse skin rash as reported above. White count is elevated. SIRS present on admission Presumed infectious until proven otherwise. Less likely allergic dermatitis Could be related to sepsis, could be related to DIC I started the patient on vancomycin and Levaquin as she is allergic to cephalosporin. Requested blood and urine culture. I requested haptoglobin and LDH. Right hip pain. CAT scan showed severe arthrosis and joint effusion as well as hip erosion. Old fractures seen in the right acetabulum as well as healing fracture of the pubic rami. Requested vitamin D level. Likely patient has osteoporosis. She would need DEXA scan to be done in the outpatient setting and initiation of bisphosphonate treatment if confirmed. Requested orthopedic consultation. Defer further diagnostic and therapeutic intervention relative to her musculoskeletal system to orthopedic team UTI Requested urine and blood culture Start patient on Levaquin. 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 Anemia, no evidence of acute blood loss. Iron studies consistent with mixed etiology, iron deficiency with a low saturation and anemia of chronic disease. Check stool Hemoccult. Start patient on PPI. Patient will likely require to have anemia workup to be done in the outpatient setting to be handled by PCP in collaboration with other needed outpatient providers. This may include but not limited to EGD, colonoscopy, referral to see hematology and other needed age-appropriate cancer screening. Severe cachexia, frailty, muscle wasting, failure to thrive, moderate to severe protein calorie malnutrition, failure to thrive. Patient appears to be 20 years older than her age. I started patient on protein oral supplementation. Likely patient will require weight loss and cachexia workup rule out malignancy. This could be done in the outpatient setting by PCP. She may need to have breast exam, mammography, HD, colonoscopy, ADMINISTRATIVE SUPPORT MANAGER exam and others. Functional impairment, no unilateral deficit. Likely caused by severe muscle wasting and cachexia. Requested PT OT eval and treatment. Likely patient will require half-way facility. She may require long-term long-term residential living. Requested the case management consultation. COPD, active smoker 1 pack/day. No exacerbation. Patient is at risk having a lung cancer. She would require yearly low-dose radiation CAT scan of the chest to screen for lung cancer to be arranged in the outpatient setting by PCP. History of CAD. No active chest pain or angina. Patient is on Eliquis but does not know why she is on Eliquis. Resume Eliquis for now until we gather additional information from outpatient sources. Hypokalemia Potassium supplementation. Check magnesium and phosphorus level. Diabetes. A1c is 6.5. I started patient on sliding scale Likely will require to be on oral medication. Chronic, subacute medical conditions not listed above, abnormal labs and imaging, incidental findings seen on labs and or imaging. These would need to be addressed. Could be addressed later on or in the outpatient setting by PCP collaboration with other needed outpatient providers when time and condition are appropriate. Overall patient has poor prognosis given her complex medical issues as listed above in the setting of severe protein calorie malnutrition and failure to thrive Urinary Catheter Management Urinary Catheter Management 2-way Urethral: Cath placed during this visit: yes Urethral indwelling: No Insertion date: 02/16/25 Insertion time: 03:00
[2025-02-16 11:49] LABS: Magnesium 1.8 mg/dL (1.8-2.4); Thyroid Stimulating Hormone 0.292 uIU/mL (0.358-3.740)
[2025-02-16 12:04] LABS: ABG PCO2 37.9 mmHg (35.0-45.0); PO2 ABG 77.2 mmHg (80.0-100.0)
[2025-02-16 12:05] LABS: Allen Test POSITIVE (POSITIVE); Liters per Minute 2; O2 Mode NASAL CANNULA; Oxygen Saturation ABG 96.0 %; Puncture Site R BRACHIAL
[2025-02-16 12:06] LABS: HCO3 ABG 27.0 mmol/L (22.0-26.0)
[2025-02-16] MEDS: HYDROMORPHONE HCL 0.5 MG/0.5 ML SYRINGE IM (12:19)
[2025-02-16] MEDS: PANTOPRAZOLE SODIUM 40 MG TABLET.DR PO ×2 (12:22→21:06)
[2025-02-16] MEDS: APIXABAN 5 MG TABLET 2.5 MG PO ×2 (12:22→21:07)
[2025-02-16] MEDS: METOPROLOL SUCCINATE 25 MG TAB.ER.24H PO (12:24)
[2025-02-16] MEDS: INSULIN ASPART 300 UNIT/3 ML PEN SUBQ ×2 (12:29→21:06)
--- NOTE | 2025-02-16 14:12 | PC.NURSE ---
1315 PICC line attempted right upper arm. Unable to thread wire. Dynamic access called for access.
[2025-02-16] MEDS: KETOROLAC TROMETHAMINE 30 MG/ML VIAL IVP (15:17)
[2025-02-16] MEDS: 0.9 % SODIUM CHLORIDE 250 ML 10 ML IV (15:17)
[2025-02-16] MEDS: VANCOMYCIN HCL 750 MG in 0.9 % SODIUM CHLORIDE 250 ML 250 MG IV (15:17)
--- NOTE | 2025-02-16 16:11 | SWNOTE1 ---
JG attempted to meet pt several times today, but getting other scans completed and has been in and out of confusion. JG called and spoke to pt's son Javier. Pt lives at home with son. Pt's son does not work and is currently going to court with social security. He is home with pt nearly 22/10. He stated that patient had been doing well, but within the past 2 days her hip has been bothering her. Prior to that she was up in the morning and ambulating and making her own coffee. He stated she would push a wheelchair around to ambulate. Pt was at [facility] for rehab for therapy and for her foot wounds. She just left about a week ago. Home health was supposed to be coming in, but they have no started yet. He was unsure of the company. They were supposed to be doing wound care for her at home. He thinks she was at [facility] then was transferred to [facility], but unsure. She does have home oxygen at 2 liters and it is from [employer]. He voiced he is concerned about the wounds on her feet. JG let him know that we are having wound care come over and look at wounds. JG advised son that we will follow up with him tomorrow with more updates after further testing. JG did ask if she is confused at all at home. He stated no she is usually talking and making sense. He voiced he took a home health class and it could be due to the UTI. JG to update the nurse. JG updated nurse, Sejal, with this information. JG reached out to Milady at [facility] to see what pt was doing with therapy prior to discharge and to see what [facility] was set up. Waiting to hear back. Sejal did let JG know that pt did say [facility]. JG to call. JG called [employer] and pt is prescribed 2 liters with exertion. Script was from December of 2023. She does not have portable oxygen concentrator, but has tanks.
--- NOTE | 2025-02-16 16:26 | SWNOTE1 ---
JG called [facility] and they stated they do not have her a a patient. JG received a message back from Ashley at [facility] and she let GJ know that pt came to them from [place] and she was discharged with [facility]. Ashley is checking on ambulation. JG did message Ahsley back to see when pt was discharged, waiting to hear back. JG called [facility] back and spoke with [facility]. They could see a referral was sent on February 03, but they did not admit her. [facility] spoke with the nurse Sharon, and Sharon confirmed they did not admit patient as they did not accept. There was a miscommunication with [facility] and [facility]. Pt was NOT set up with at discharge from the nursing facility. JG updated nurse.
--- NOTE | 2025-02-16 16:31 | SWNOTE1 ---
Leena Blake did let SW know this was how pt was functioning prior to discharge from their facility: Including our [employer] Karla. Ambulation: 20 ft with supervision with front wheeled walker.?
[2025-02-16] MEDS: MORPHINE SULFATE 2 MG/ML SYRINGE 1 MG IV ×2 (16:48→21:07)
[2025-02-16] MEDS: LEVOFLOXACIN IN DEXTROSE 5 % 500 MG/100 ML PREMIX 100 MG IV (16:48)
--- NOTE | 2025-02-16 17:35 | W.PM.WC ---
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 Patient states she uses betadine and calcium alginate at home on ulcers. Ulcers are very dry and do not require alginate dressings at this time. Patient with at least 21 ulcers to her BLE. All appear to be arterial/pressure in nature. She does state she got the ulcer on her left plantar heel from stepping on a todd nail. She has had these areas for awhile . All areas noted painted with betadine, padded with ABD pads and LOOSELY wrapped with kerlix. A bariatric seat cushion was placed under patient's fitted sheet to assist with off loading. Noted ulcers are as follows. Photos in chart. Left great toe 100% dry, black 0.5x0.5cmx0 Left plantar great toe 100 % dry 0.4x0.4x0cm Left great toe tip 100% black, 0.3x0.3x0cm Left plantar heel 1.7x1.2x0.4cm 100% eschar, dry Left lateral foot [id number] 100% dry, yellow Left knee 1.7a6o2mn 100% dry Left lateral ankle 0.5x0.5x0 100% yellow Left lateral lower leg 0.4x0.4x0cm 100% yellow Left posterior ankle 1.8x1.5x0cm 100% dry Left second toe 0.8x0.6x0cm 100% black/dry Left fourth toe 0.4x0.4x0cm 100% dry Left fifth toe 0.4x0.4x0xm 100% dry Right great toe 1.1x0.5x0cm 100% dry Right medial foot 1.3s0s9iu 100% dry yellow Right medial heel 1.7u4n7rw 100% dry Right lateral foot [id number] 100% dry/black Right second toe 0.6x0.5x0.2 100% dry Right Achilles 2.5x2x0.2 Achilles present Right fourth toe 0.4x0.4x0 100% dry Right lateral 5th/lateral foot 2.9o3f6ga 100% dry/black Patient states her right leg is more painful than her left. Will discuss case with Dr. Devlin, wound distribution center associate and liquor department manager. Will place consult in chart. All questions answered to patient. Discussed case with bedside RN. Any questions please call [phone]. Cecil Ricketts RN, CWON
[2025-02-16] MEDS: OXYCODONE HCL/ACETAMINOPHEN 5MG/325MG 1 TAB PO (18:21)
[2025-02-16] MEDS: MAGNESIUM SULFATE/D5W 1 GM/100 ML PREMIX IV (19:15)
[2025-02-16] MEDS: BUDESONIDE 0.5 MG/2 ML AMPULE NEB IH (20:34)
[2025-02-16] MEDS: ALBUTEROL SULFATE 2.5 MG/3 ML VIAL NEB IH (20:34)
[2025-02-16] MEDS: CELECOXIB 100 MG CAPSULE PO (21:06)
[2025-02-16] MEDS: ACETAMINOPHEN 325 MG TABLET 650 MG PO (21:06)
[2025-02-17] VITALS (22 sets, daily range): BP systolic 91–150; BP diastolic 51–78; PULSE 86–115; TEMP 36.3–36.8; O2SAT 87–96
[2025-02-17] MEDS: KETOROLAC TROMETHAMINE 30 MG/ML VIAL 15 MG IVP (00:06)
[2025-02-17] MEDS: OXYCODONE HCL/ACETAMINOPHEN 5MG/325MG 1 TAB PO ×3 (00:59→20:56)
[2025-02-17 01:32] LABS: A. calcoaceticus-baumannii Cpx NOT DETECTED (NOT DETECTE); Bacteroides fragilis NOT DETECTED (NOT DETECTE); Candida auris NOT DETECTED (NOT DETECTE); Candida glabrata NOT DETECTED (NOT DETECTE); Enterobacterales NOT DETECTED (NOT DETECTE); Enterococcus faecalis NOT DETECTED (NOT DETECTE); Enterococcus faecium NOT DETECTED (NOT DETECTE); Klebsiella aerogenes NOT DETECTED (NOT DETECTE); Klebsiella pneumoniae group NOT DETECTED (NOT DETECTE); Proteus spp. NOT DETECTED (NOT DETECTE); Salmonella spp. NOT DETECTED (NOT DETECTE); Serratia marcescens NOT DETECTED (NOT DETECTE); Source BLOOD; Staphylococcus epidermidis NOT DETECTED (NOT DETECTE); Staphylococcus lugdunensis NOT DETECTED (NOT DETECTE); Stenotrophomonas maltophilia NOT DETECTED (NOT DETECTE); Streptococcus pyogenes NOT DETECTED (NOT DETECTE); Streptococcus spp. NOT DETECTED (NOT DETECTE)
[2025-02-17 02:42] LABS: mecA/C and MREJ (MRSA) DETECTED (NOT DETECTE)
[2025-02-17 02:43] LABS: Staphylococcus spp. DETECTED (NOT DETECTE)
[2025-02-17] MEDS: ACETAMINOPHEN 325 MG TABLET 650 MG PO ×2 (03:47→22:48)
[2025-02-17 04:07] LABS: Vitamin B12 935 pg/mL (232-1245)
[2025-02-17 05:34] LABS: Hematocrit 24.4 % (36.0-48.0); Hemoglobin 7.6 g/dL (12.0-16.0); Mean Corpuscular HGB Conc 31.1 g/dL (29.9-35.2); Mean Corpuscular Hemoglobin 26.6 pg (26.7-34.0); Mean Corpuscular Volume 85.3 fL (81.0-99.0); Platelet Count 219 10^3/uL (150-450); Red Blood Count 2.86 10^6/uL (4.20-5.40); White Blood Count 6.6 10^3/uL (4.0-11.0)
[2025-02-17 05:55] LABS: Anion Gap 10.4; Blood Urea Nitrogen 17.0 mg/dL (7.0-18.0); Calcium 8.3 mg/dL (8.5-10.1); Carbon Dioxide 27.3 mmol/L (21.0-32.0); Chloride 106 mmol/L (98-107); Estimated GFR (African America >60 (>=60 mL/min/1.73m^2); Estimated GFR (Non-African Ame >60 (>=60 mL/min/1.73m^2); Glucose 113 mg/dL (74-106); Potassium 3.7 mmol/L (3.5-5.1); Sodium 140 mmol/L (136-145)
[2025-02-17 06:06] LABS: Alanine Aminotransferase 18 U/L (14-59); Alkaline Phosphatase 144 U/L (46-116); Aspartate Amino Transferase 13 U/L (15-37); Total Protein 5.0 g/dL (6.4-8.2)
[2025-02-17 06:07] LABS: Albumin Globulin Ratio 0.5; Albumin Level 1.7 g/dL (3.4-5.0); Globulin 3.3 g/dL
--- NOTE | 2025-02-17 08:30 | CM.NOTE ---
Rounds made with Dr. Laguerre, discussed plan of care with pt. Pt will have MRI of R hip today. Dr. Laguerre discussed case with Dr. Devlin, possible need for transfer to higher level of care.
[2025-02-17] MEDS: VANCOMYCIN HCL 750 MG in 0.9 % SODIUM CHLORIDE 250 ML 250 MG IV ×2 (08:48→20:56)
[2025-02-17] MEDS: ASPIRIN 81 MG TAB.CHEW PO (08:48)
[2025-02-17] MEDS: PANTOPRAZOLE SODIUM 40 MG TABLET.DR PO ×2 (08:49→20:56)
[2025-02-17] MEDS: CELECOXIB 100 MG CAPSULE PO ×2 (08:49→20:56)
[2025-02-17] MEDS: BUDESONIDE 0.5 MG/2 ML AMPULE NEB IH ×2 (09:18→20:58)
[2025-02-17] MEDS: ALBUTEROL SULFATE 2.5 MG/3 ML VIAL NEB IH ×3 (09:18→20:58)
--- NOTE | 2025-02-17 09:18 | SWNOTE1 ---
JG received a call from Tequila at [facility], medicaid waiver. Pt is currnent with them and enrolled in August. Pt has been in and out of SNF's and hospitals since September. She was discharged from [facility] on February 05. [facility] refused her due to previous non-compliance. Per Tequila at [facility], Karla HinojosaAdam at [facility] was supposed to be setting up another [employer] company, but this has not been done. Pt has an emergency response system at home and they also have meals on wheels coming in from [facility] in [place]. Tequila was trying to work on a walk in shower project, but the patient has not been answering her phone and they need to do an in home visit to start this. Tequila did request that JG update her with discharge plans. GJ to update. JG let case management know.
--- NOTE | 2025-02-17 09:32 | SWNOTE1 ---
JG received an email from Karla at [facility], she is the SW. She stated that she sent referral to [facility] a week prior to discharge, but they called after discharge and let her know they could not accept due to non-compliance. Karla is working with Starla to set up HH services and they are working with [facility]. Karla also stated that [facility] is paying for the son to take classes to be a caregiver for the patient at home. Starla also informed JG of this. JG to follow up with [facility].
--- NOTE | 2025-02-17 10:12 | CM.NOTE ---
MRI called for concerns of pt able to hold R leg straight for one hour during MRI. CM will speak with pt and update Dr. Laguerre.
--- NOTE | 2025-02-17 10:26 | PM.CN ---
Consult Note: [facility] Data of Consult Consult date: 02/17/25 Requesting Physician: Alin Laguerre MD Primary Care Provider: Non-Staff Physician, Consult Narrative Reason for consult: B/l lower extremity ulcers Narrative: Patient is a 64-year-old female with multiple medical comorbidities including but not limited to type 2 diabetes, COPD, PAD and was admitted yesterday after her son noted confusion. She is an active smoker, 1 pack/day for nearly 50 years and is on home oxygen. During her workup, it was found that she had a UTI and multiple lower extremity wounds for which I was consulted for. At bedside she is awake and oriented and relates that she has had the wounds for more than a year. She notes pain in her legs when walking but mostly to her right hip which has known severe DJD. She does not recall seeing a construction recruiter or medical information specialist. At time of admission she had leukocytosis of 18,000 which is down to 6600 today. She is anemic with hemoglobin/hematocrit at 7.4/24.4. CRP 27.9. Hemoglobin A1c 6.5 At bedside she denies pain in her feet and denies fever/chills, nausea and vomiting. She does relate to generalized weakness and malaise. She notes a rash to bilateral lower extremities and is unsure when this developed. cc:: CC: Alin Laguerre MD Review of Systems ROS Status of ROS 10 or more systems reviewed and unremarkable except as noted in history and below [facility] Medical History (Updated 02/17/25 @ 11:36 by Sherman Devlin DPM) Acute exacerbation of chronic obstructive pulmonary disease ?J44.1 - Chronic obstructive pulmonary disease with (acute) exacerbation (ICD-10) Acute and chronic respiratory failure with hypoxia ?J96.21 - Acute and chronic respiratory failure with hypoxia (ICD-10) Acute exacerbation of CHF (congestive heart failure) ?I50.9 - Heart failure, unspecified (ICD-10) Smoker ?F17.200 - Nicotine dependence, unspecified, uncomplicated (ICD-10) Fall ?W19.XXXA - Unspecified fall, initial encounter (ICD-10) Oxygen dependent ?Z99.81 - Dependence on supplemental oxygen (ICD-10) CHF (congestive heart failure) ?I50.9 - Heart failure, unspecified (ICD-10) HTN (hypertension) ?I10 - Essential (primary) hypertension (ICD-10) Heart attack ?I21.9 - Acute myocardial infarction, unspecified (ICD-10) COPD (chronic obstructive pulmonary disease) ?J44.9 - Chronic obstructive pulmonary disease, unspecified (ICD-10) Surgical History Stented coronary artery ?Z95.5 - Presence of coronary angioplasty implant and graft (ICD-10) Family History (Updated 02/16/25 @ 11:01 by Sejal Flowers RN) Sister Family history of cancer Mother Family history of COPD (chronic obstructive pulmonary disease) Social History (Updated 02/16/25 @ 11:00 by Sejal Flowers RN) Within the past year, how often did you have a drink containing alcohol: never Score interpretation: A score less than 3 is consistent with normal alcohol consumption. Smoking status: Current every day smoker Non-prescribed substance use: denies use Highest level of school completed/degree received: high school graduate Little interest or pleasure in doing things: nearly every day Feeling down, depressed, or hopeless: nearly every day Meds Home Medications and Allergies Home Medications ?Medication ?Instructions ?Recorded ?Confirmed ?Type losartan 100 mg tablet 100 mg PO QDAY 09/24/22 02/16/25 History methocarbamol 750 mg tablet 750 mg PO QID 09/24/22 02/16/25 History gabapentin 800 mg tablet 800 mg PO TID 03/18/23 02/16/25 History (Neurontin) levothyroxine 150 mcg tablet 150 mcg PO DAILY 03/18/23 02/16/25 History (Synthroid) liothyronine 5 mcg tablet 10 mcg (2 x 5 mcg) PO ACB #60 tabs 03/20/23 02/17/25 Rx albuterol sulfate 90 mcg/actuation 2 puff inhalation QID PRN 07/17/23 02/16/25 History aerosol inhaler shortness of breath or wheezing furosemide 20 mg tablet 20 mg PO DAILY 07/17/23 02/16/25 History isosorbide mononitrate 30 mg 30 mg PO DAILY 07/17/23 02/17/25 History tablet,extended release 24 hr metoprolol succinate 25 mg 25 mg PO DAILY 07/17/23 02/16/25 History tablet,extended release 24 hr venlafaxine 75 mg capsule,extended 75 mg PO DAILY 07/17/23 02/17/25 History release 24 hr zolpidem 10 mg tablet 5 mg PO QPM PRN sleep 07/17/23 02/16/25 History meloxicam 7.5 mg tablet 7.5 mg PO DAILY PRN pain #20 tabs 02/15/25 02/17/25 Rx albuterol sulfate 2.5 mg/3 mL 2.5 mg inhalation Q6H PRN 02/16/25 02/16/25 History (0.083 %) solution for nebulization shortness of breath or wheezing amitriptyline 10 mg tablet 10 mg PO .QHS 02/16/25 02/16/25 History amlodipine 10 mg tablet 10 mg PO DAILY 02/16/25 02/16/25 History apixaban 5 mg tablet (Eliquis) 2.5 mg PO Q12H 02/16/25 02/16/25 History ascorbic acid (vitamin C) 500 mg 500 mg PO BID 02/16/25 02/16/25 History tablet aspirin 81 mg chewable tablet 1 tab PO DAILY 02/16/25 02/16/25 History budesonide-formoterol HFA 160 2 puff inhalation Q12H 02/16/25 02/16/25 History mcg-4.5 mcg/actuation aerosol inhaler (Symbicort) ergocalciferol (vitamin D2) 1,250 1,250 mcg PO QWEEK 02/16/25 02/16/25 History mcg (50,000 unit) capsule hydroxyzine HCl 25 mg tablet 25 mg PO Q6H PRN anxiety 02/16/25 02/16/25 History multivitamin with folic acid 400 1 tab PO DAILY 02/16/25 02/16/25 History mcg tablet (Daily-Katja (with folic acid)) oxycodone-acetaminophen 7.5 mg-325 1 tab PO Q6H PRN pain 02/16/25 02/16/25 History mg tablet pravastatin 40 mg tablet 40 mg PO .QHS 02/16/25 02/16/25 History Allergies Allergy/AdvReac Type Severity Reaction Status Date / Time codeine AdvReac Intermediate Verified 09/24/22 17:23 ceclor AdvReac Intermediate Uncoded 09/24/22 17:23 Exam Narrative Exam Narrative: Skin: Macular type rash bilateral lower legs with multiple ulcerations. Ulceration noted to right lateral foot, left medial foot which is necrotic and fibrotic and unable to determine exact depth. Ulcerations to distal pulps of left 2nd and 4th toes with dry eschar. Right posterior ankle ulcer with exposure of Achilles tendon. Plantar and posterior left heel ulcers with are primarily granular and full thickness. No surrounding erythema or active purulent drainage. Vasc: Nonpalpable pedal pulses. Capillary refill is sluggish. Feet are cool to the touch MSK: Strength is significantly weak at the foot/ankle level bilaterally. Rigid lesser toe contractures are noted Constitutional Vital Signs, click to edit/add: Last Vital Signs Temp 97.3 F L 02/17/25 08:03 Pulse 96 H 02/17/25 09:21 Resp 18 02/17/25 09:21 BP 93/55 02/17/25 08:03 Pulse Ox 92 L 02/17/25 09:21 O2 Del Method Nasal Cannula 02/17/25 09:21 O2 Flow Rate 2 02/17/25 09:21 Results Labs Labs: Short CBC 02/17/25 Range/Units 04:50 WBC 6.6 (4.0-11.0) 10^3/uL Hgb 7.6 L (12.0-16.0) g/dL Hct 24.4 L (36.0-48.0) % Plt Count 219 (150-450) 10^3/uL BMP 02/17/25 04:50 Sodium 140 Potassium 3.7 Chloride 106 Carbon Dioxide 27.3 BUN 17.0 Creatinine 0.60 Glucose 113 H Calcium 8.3 L Liver Function 02/16/25 02/17/25 Range/Units 03:18 04:50 Total Bilirubin 0.4 0.4 (0.2-1.0) mg/dL Direct Bilirubin 0.1 0.2 (0.0-0.2) mg/dL AST 18 13 L (15-37) U/L ALT 14 18 (14-59) U/L Alkaline Phosphatase 121 H 144 H (46-116) U/L Albumin 2.1 L 1.7 L (3.4-5.0) g/dL ABG ABG results: 02/16/25 11:55 ABG pH 7.461 H ABG pCO2 37.9 ABG pO2 77.2 L ABG HCO3 27.0 H ABG O2 Saturation 96.0 ABG Base Excess 3.2 H Assessment and Plan Assessment and Plan (1) Encephalopathy: (2) PAD (peripheral artery disease): (3) 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 Patient is extremely complicated and has an active limb and life threatening issue with multiple lower extremity ulcerations which are seemingly deep and necrotic in the setting of moderate to severe peripheral arterial disease based on arterial Dopplers that were obtained during this admission. Of note patient has a history of stenting in bilateral SFAs and focal stenosis of right common femoral artery. It is very likely the source of her bacteremia is from these ulcerations however she also has a UTI which also could be a source of her systemic infection. I discussed the case with Dr. Laguerre who is in agreement that the patient will need transferred where there is vascular and orthopedic care onsite. I recommended continued dressing changes daily for now although this is palliative. Please call with any updates or changes
[2025-02-17] MEDS: HYDROMORPHONE HCL 1 MG/ML CARTRIDGE 0.5 MG IVP (11:06)
[2025-02-17] MEDS: INSULIN ASPART 300 UNIT/3 ML PEN SUBQ ×2 (11:37→16:54)
--- NOTE | 2025-02-17 12:00 | CM.NOTE ---
CM spoke with MRI, pt verbalizes she had vascular clips in the past. MRI (Filomena) will reach out to [facility] for information to move forward with MRI. Update given to Dr. Laguerre and RN. RN will start PRBC.
--- NOTE | 2025-02-17 13:43 | CA_ITS ---
Patient Name: JONATAN SPENCER MR#: [id number] : 1960 Exam Date: 02/17/2025 Ordering Doctor: KIKO SMART ECHOCARDIOGRAM REPORT PROCEDURE: CA ECHO DOPPLER COMPLETE INDICATIONS: Staph bacteremia r/o endocarditis, smoker, COPD, congestive heart failure, VA, hypertension COMPARISON: None. DESCRIPTION: COMPLETE ECHOCARDIOGRAM Real-time transthoracic echocardiography with 2D, M-mode, spectral and color flow Doppler performed. QUALITY: Technical quality was good. LEFT VENTRICLE: Normal chamber size. Moderate concentric left ventricular hypertrophy. Normal systolic function. Estimated left ventricular ejection fraction is 55-60%. LV EF: Normal left ventricular ejection fraction, (>55%). DIASTOLIC: Grade 2 diastolic dysfunction. ATRIAL SEPTUM: Visually appears intact. LEFT ATRIUM: Mild dilatation. RIGHT ATRIUM: Mild dilatation. RIGHT VENTRICLE: Mild chamber dilatation. Normal right ventricular systolic function. TRICUSPID VALVE: Normal mobility and thickness. No stenosis with mild to moderate regurgitation. Doppler studies reveal severely (>60) elevated right sided pressures. RVSP 70 mmHg MITRAL VALVE: Normal mobility and thickness. No evidence of mitral valve stenosis. There is no mitral annular calcification. Trivial mitral regurgitation. AORTIC VALVE: Normal trileaflet appearance. Mildly calcified aortic valve. Normal leaflet mobility. No evidence of aortic valve stenosis. No aortic regurgitation. AORTIC ROOT: Normal diameter and appearance, measuring 3.4 cm. PULMONIC VALVE: Normal thickness and mobility. No stenosis. Trivial regurgitation. PERICARDIUM: No evidence of pericardial effusion. IVC: IVC is dilated (2.2 cm), does not collapse. PLEURA: CONCLUSION: 1. Moderate concentric left ventricular hypertrophy with normal systolic function. LVEF is 55 to 60%. 2. Grade 2 diastolic dysfunction. 3. Mildly dilated right ventricle with normal systolic function. 4. Mild biatrial dilatation. 5. Mild to moderate tricuspid regurgitation. 6. Severely elevated right-sided pressures. RVSP is 70 mmHg. Adult Echocardiography Procedure Report Left Ventricle LVEDD (3.7 - 5.6 cm): 3.35 cm LVESD (2.2 - 4.0 cm): 2.13 cm LVIVS thickness (0.6 - 1.2 cm): 1.57 cm LVPW thickness (0.5 - 1.0 cm): 1.21 cm e': 0.09 m/s E - e': 7.45 LVOT Max Gradient: 3.43 mm[Hg] LVOT Area (cm2): 0.93 m/s Peak Velocity (LVOT): 0.93 m/s Mean Velocity (LVOT): 0.66 m/s LVOT Diameter 2.13 cm Left Ventricular Ejection Fraction: 55-60 % Left Atrium LA Volume Index (2D A2C): 35.44 ml/m2 Left Atrium Systolic Dimension: 2.92 cm Mitral Valve MV E to A Ratio: 0.81 Mitral Valve A-Wave Peak Velocity: 0.80 m/s Mitral Valve E-Wave Peak Velocity: 0.65 m/s Right Ventricle Aorta AO Root Diam: 3.37 cm Aortic Valve AoV Area (Peak Nam): 2.42 cm2, 2.42 cm2 AoV Area (VTI): 2.69 cm2, 2.69 cm2 Peak Velocity(Antegrade Flow): 1.37 m/s Peak Gradient(Antegrade Flow): 7.46 mm[Hg] Mean Velocity(Antegrade Flow): 0.91 m/s Mean Gradient(Antegrade Flow): 3.74 mm[Hg] Velocity Time Integral: 30.29 cm Tricuspid Valve Peak Velocity (Regurgitant Flow): 3.71 m/s, 3.51 m/s Pulmonic Valve Mean Gradient: 2.69 mm[Hg] Mean Velocity: 0.73 m/s Peak Velocity: 1.34 m/s Peak Gradient: 7.20 mm[Hg] Right Atrium Right Atrium Systolic Pressure: 61.82 ml, 61.82 ml Dictated by: Kaveh Sams M.D. on 02/19/2025 at 16:34 Approved by: Kaveh Sams M.D. on 02/19/2025 at 16:39
--- NOTE | 2025-02-17 13:46 | P.PN_ITS ---
Progress Note: Subjective Subjective Interval history: Patient is feeling better. Patient is much more awake compared to yesterday. She is feeling better overall. She continues to have pain in the right hip. Exam Narrative Exam Narrative: Patient is very cachectic and frail in appearance. She appears to be 20 years older than her age. Bitemporal muscle wasting. Upper and lower extremities muscle wasting atrophy. Skin exam showed diffuse macular rash with superficial ulcerations involving her lower extremities anteriorly, medially and laterally with devious degrees of development and healing. She has similar rash on her upper extremities but not on her trunk. Patient is awake but not fully alert. Disoriented and confused. Moving her extremities. Able to answer questions. Chest exam revealed diminished breath sound. Heart is regular. Abdomen soft, scaphoid in appearance. Constitutional Vital Signs, click to edit/add: Last Vital Signs Temp 97.5 F L 02/17/25 13:20 Pulse 94 H 02/17/25 13:20 Resp 18 02/17/25 13:20 BP 120/56 02/17/25 13:20 Pulse Ox 95 02/17/25 13:20 O2 Del Method Nasal Cannula 02/17/25 13:20 O2 Flow Rate 3 02/17/25 13:20 Progress Note: Objective Labs Labs: Short CBC 02/17/25 Range/Units 04:50 WBC 6.6 (4.0-11.0) 10^3/uL Hgb 7.6 L (12.0-16.0) g/dL Hct 24.4 L (36.0-48.0) % Plt Count 219 (150-450) 10^3/uL BMP 02/17/25 04:50 Sodium 140 Potassium 3.7 Chloride 106 Carbon Dioxide 27.3 BUN 17.0 Creatinine 0.60 Glucose 113 H Calcium 8.3 L Liver Function 02/17/25 Range/Units 04:50 Total Bilirubin 0.4 (0.2-1.0) mg/dL Direct Bilirubin 0.2 (0.0-0.2) mg/dL AST 13 L (15-37) U/L ALT 18 (14-59) U/L Alkaline Phosphatase 144 H (46-116) U/L Albumin 1.7 L (3.4-5.0) g/dL Progress Note: A&P Assessment and Plan (1) Encephalopathy: (2) PAD (peripheral artery disease): (3) 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 The good thing is that I started her on vancomycin on admission prior to blood culture coming back positive. Continue vancomycin. I requested echocardiogram rule out endocarditis. She has a right hip effusion and severe discomfort. She may have septic joint. Requested MRI of the hip. MRI is on hold due to to further verification of previous metal in her body. Orthopedic physician to see her tomorrow for severe right hip necrosis and effusion with the possibility being septic joint. Encephalopathy, likely metabolic and septic encephalopathy. Much improved compared to admission state Requested CT head which came back negative for acute intracranial process. No unilateral deficit. 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 Patient has COPD. She may have hypercapnia. Requested a blood gas. Also requested toxicology screen which came back positive for oxycodone. Patient may be having toxic encephalopathy. I requested a blood gas which does not show hypercapnia. Diffuse skin rash as reported above. White count is elevated. SIRS present on admission Presumed infectious until proven otherwise. Less likely allergic dermatitis Could be related to sepsis, could be related to DIC Previous wound culture came back positive for Pseudomonas that is sensitive to quinolones. I started the patient on vancomycin and Levaquin as she is allergic to cephalosporin. Requested blood and urine culture. Blood culture is positive for staph, resistant to I requested haptoglobin and LDH. LDH was elevated but trending down. Right hip pain. CAT scan showed severe arthrosis and joint effusion as well as hip erosion. Old fractures seen in the right acetabulum as well as healing fracture of the pubic rami. Due to blood culture coming back positive for staph the patient may have septic joint. Requested MRI of the hip to take a better look at the anatomy and subsequently to be seen by orthopedic team. Requested vitamin D level. Likely patient has osteoporosis. She would need DEXA scan to be done in the outpatient setting and initiation of bisphosphonate treatment if confirmed. Requested orthopedic consultation. Defer further diagnostic and therapeutic intervention relative to her musculoskeletal system to orthopedic team UTI Requested urine and blood culture Start patient on Levaquin. 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 Anemia, no evidence of acute blood loss. Iron studies consistent with mixed etiology, iron deficiency with a low saturation and anemia of chronic disease. Patient had history of upper GI bleed where she had an EGD in [place]. Check stool Hemoccult. Start patient on PPI. Further drop of her hemoglobin overnight. Place Eliquis on hold 1 unit of RBC transfusion.. Patient will likely require to have additional anemia workup to be done in the outpatient setting to be handled by PCP in collaboration with other needed outpatient providers. This may include but not limited to EGD, colonoscopy, referral to see hematology and other needed age-appropriate cancer screening. Severe cachexia, frailty, muscle wasting, failure to thrive, moderate to severe protein calorie malnutrition, failure to thrive. Patient appears to be 20 years older than her age. I started patient on protein oral supplementation. Likely patient will require weight loss and cachexia workup rule out malignancy. This could be done in the outpatient setting by PCP. 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 Functional impairment, no unilateral deficit. Likely caused by severe muscle wasting and cachexia. Requested PT OT eval and treatment. Likely patient will require alf facility. She may require long-term care home residential living. Requested the case management consultation. COPD, active smoker 1 pack/day. No exacerbation. Patient is at risk having a lung cancer. She would require yearly low-dose radiation CAT scan of the chest to screen for lung cancer to be arranged in the outpatient setting by PCP. History of CAD. No active chest pain or angina. Patient is on Eliquis but does not know why she is on Eliquis. Resume Eliquis for now until we gather additional information from outpatient sources. Hypokalemia Potassium supplementation. Check magnesium and phosphorus level which came back normal Diabetes. A1c is 6.5. I started patient on sliding scale Likely will require to be on oral medication. History of PE for which patient was discharged on Eliquis 2.5 mg twice a day. Given her hemoglobin drop and previous history of upper GI bleed I will hold Eliquis for 24 to 48 hours. Patient may not need lifelong anticoagulation treatment. Chronic, subacute medical conditions not listed above, abnormal labs and imaging, incidental findings seen on labs and or imaging. These would need to be addressed. Could be addressed later on or in the outpatient setting by PCP collaboration with other needed outpatient providers when time and condition are appropriate. Overall patient has poor prognosis given her complex medical issues as listed above in the setting of severe protein calorie malnutrition and failure to thrive. Urinary Catheter Management Urinary Catheter Management 2-way Urethral: Cath placed during this visit: yes Urethral indwelling: No Insertion date: 02/16/25 Insertion time: 03:00
[2025-02-17] MEDS: LEVOFLOXACIN IN DEXTROSE 5 % 500 MG/100 ML PREMIX 100 MG IV (16:59)
[2025-02-17] MEDS: 0.9 % SODIUM CHLORIDE 250 ML 10 ML IV ×2 (17:00→21:01)
[2025-02-18] VITALS (9 sets, daily range): BP systolic 107–132; BP diastolic 59–84; PULSE 83–106; TEMP 36.2–36.9; O2SAT 91–95
[2025-02-18] MEDS: KETOROLAC TROMETHAMINE 30 MG/ML VIAL 15 MG IVP (01:58)
[2025-02-18] MEDS: ACETAMINOPHEN 325 MG TABLET 650 MG PO ×2 (05:05→21:40)
[2025-02-18 05:18] LABS: Hematocrit 30.4 % (36.0-48.0); Hemoglobin 9.8 g/dL (12.0-16.0); Mean Corpuscular HGB Conc 32.2 g/dL (29.9-35.2); Mean Corpuscular Hemoglobin 27.4 pg (26.7-34.0); Mean Corpuscular Volume 84.9 fL (81.0-99.0); Platelet Count 201 10^3/uL (150-450); Red Blood Count 3.58 10^6/uL (4.20-5.40); White Blood Count 13.0 10^3/uL (4.0-11.0)
[2025-02-18 05:38] LABS: Alanine Aminotransferase 16 U/L (14-59); Albumin Globulin Ratio 0.4; Albumin Level 1.5 g/dL (3.4-5.0); Alkaline Phosphatase 141 U/L (46-116); Anion Gap 11.5; Aspartate Amino Transferase 13 U/L (15-37); Blood Urea Nitrogen 16.0 mg/dL (7.0-18.0); Calcium 8.1 mg/dL (8.5-10.1); Carbon Dioxide 25.9 mmol/L (21.0-32.0); Chloride 106 mmol/L (98-107); Estimated GFR (African America >60 (>=60 mL/min/1.73m^2); Estimated GFR (Non-African Ame >60 (>=60 mL/min/1.73m^2); Globulin 3.5 g/dL; Glucose 170 mg/dL (74-106); Potassium 3.4 mmol/L (3.5-5.1); Sodium 140 mmol/L (136-145); Total Protein 5.0 g/dL (6.4-8.2)
[2025-02-18] MEDS: OXYCODONE HCL/ACETAMINOPHEN 5MG/325MG 1 TAB PO ×2 (07:43→18:27)
[2025-02-18] MEDS: INSULIN ASPART 300 UNIT/3 ML PEN SUBQ ×3 (08:12→18:15)
--- NOTE | 2025-02-18 08:20 | CM.NOTE ---
Rounds made with Dr. Laguerre, discussed plan of care with pt. Pt will see ortho today for further recommendations. Pt will also have MRI today. No discharge today.
[2025-02-18] MEDS: BUDESONIDE 0.5 MG/2 ML AMPULE NEB IH ×2 (09:41→21:26)
[2025-02-18] MEDS: ALBUTEROL SULFATE 2.5 MG/3 ML VIAL NEB IH ×3 (09:41→21:26)
--- NOTE | 2025-02-18 10:31 | SWNOTE1 ---
JG stopped in to discuss dc planning with pt. Pt was sitting up in the chair and is alert and oriented. JG advised pt that SW has spoke to her son Javier, her test case developer from [facility], and to [facility] in regards to pt's care. JG did let pt know that the recommendations from therapy at this time are for pt to go to SNF for some more rehab prior to returning home. Pt smiled and shook her hear no. She stated she is not going to another nursing facility, she is going home. SW did let her know that there are different nursing facilities and she does not have to go to [facility]. SW let her know for her own safety it would be beneficial to go skilled for a short time. Pt again stated she wants to go home and does not want rehab. She is agreeable to home health services. SW let her know the reason HH has not showed up is because [facility] ended up not accepting her. Per Karla at [facility] and Starla with [facility], they were working with [facility]. Pt is agreeable to any company. JG to send referral to [facility]. At this time pt is refusing SNF. Referral sent to [facility]. Referral included face sheet, ED note, H&P, provider notes, case management report, wound consult, Ortho consult, and PT/OT notes.
[2025-02-18] MEDS: METOPROLOL SUCCINATE 25 MG TAB.ER.24H PO (10:40)
[2025-02-18] MEDS: CELECOXIB 100 MG CAPSULE PO ×2 (10:43→20:56)
[2025-02-18] MEDS: VANCOMYCIN HCL 750 MG in 0.9 % SODIUM CHLORIDE 250 ML 250 MG IV ×2 (10:44→21:40)
[2025-02-18] MEDS: ASPIRIN 81 MG TAB.CHEW PO (10:44)
[2025-02-18] MEDS: POTASSIUM CHLORIDE 10 MEQ ER TABLET 40 MEQ PO (10:44)
--- NOTE | 2025-02-18 10:44 | PM.ORCN ---
History of Present Illness [facility] Consult date: 02/18/25 Consult reason: joint pain Chief complaint: CONFUSION, WEAKNESS UTI AMS Narrative: Kristal is a 64-year-old female with CAD, COPD, current smoker who orthopedic surgery was consulted for evaluation of her right hip. She was seen in the emergency department and found to have significant degeneration and avascular necrosis with erosion of the acetabulum. She was admitted to the hospital for multiple comorbidities including UTI and pressure ulcers as well as confusion. Pain in her right hip has been fairly significant for the past month. She has had longstanding hip pain however. She does walk minimally with a rollator however has not been able to recently. Pain is located diffusely in the right hip region. She does have some low back pain as well. She has a chronic wound on her right heel secondary to an activity. She lives with her son. Review of Systems ROS Status of ROS 10 or more systems reviewed and unremarkable except as noted in history and below [facility] Medical History (Updated 02/18/25 @ 10:51 by Arben Mullen DO) Acute exacerbation of chronic obstructive pulmonary disease ?J44.1 - Chronic obstructive pulmonary disease with (acute) exacerbation (ICD-10) Acute and chronic respiratory failure with hypoxia ?J96.21 - Acute and chronic respiratory failure with hypoxia (ICD-10) Acute exacerbation of CHF (congestive heart failure) ?I50.9 - Heart failure, unspecified (ICD-10) Smoker ?F17.200 - Nicotine dependence, unspecified, uncomplicated (ICD-10) Fall ?W19.XXXA - Unspecified fall, initial encounter (ICD-10) Oxygen dependent ?Z99.81 - Dependence on supplemental oxygen (ICD-10) CHF (congestive heart failure) ?I50.9 - Heart failure, unspecified (ICD-10) HTN (hypertension) ?I10 - Essential (primary) hypertension (ICD-10) Heart attack ?I21.9 - Acute myocardial infarction, unspecified (ICD-10) COPD (chronic obstructive pulmonary disease) ?J44.9 - Chronic obstructive pulmonary disease, unspecified (ICD-10) Surgical History Stented coronary artery ?Z95.5 - Presence of coronary angioplasty implant and graft (ICD-10) Family History (Updated 02/16/25 @ 11:01 by Sejal Flowers RN) Sister Family history of cancer Mother Family history of COPD (chronic obstructive pulmonary disease) Social History (Updated 02/16/25 @ 11:00 by Sejal Flowers RN) Within the past year, how often did you have a drink containing alcohol: never Score interpretation: A score less than 3 is consistent with normal alcohol consumption. Smoking status: Current every day smoker Non-prescribed substance use: denies use Highest level of school completed/degree received: high school graduate Little interest or pleasure in doing things: nearly every day Feeling down, depressed, or hopeless: nearly every day Meds Home Medications and Allergies Home Medications ?Medication ?Instructions ?Recorded ?Confirmed ?Type losartan 100 mg tablet 100 mg PO QDAY 09/24/22 02/16/25 History methocarbamol 750 mg tablet 750 mg PO QID 09/24/22 02/16/25 History gabapentin 800 mg tablet 800 mg PO TID 03/18/23 02/16/25 History (Neurontin) levothyroxine 150 mcg tablet 150 mcg PO DAILY 03/18/23 02/16/25 History (Synthroid) liothyronine 5 mcg tablet 10 mcg (2 x 5 mcg) PO ACB #60 tabs 03/20/23 02/17/25 Rx albuterol sulfate 90 mcg/actuation 2 puff inhalation QID PRN 07/17/23 02/16/25 History aerosol inhaler shortness of breath or wheezing furosemide 20 mg tablet 20 mg PO DAILY 07/17/23 02/16/25 History isosorbide mononitrate 30 mg 30 mg PO DAILY 07/17/23 02/17/25 History tablet,extended release 24 hr metoprolol succinate 25 mg 25 mg PO DAILY 07/17/23 02/16/25 History tablet,extended release 24 hr venlafaxine 75 mg capsule,extended 75 mg PO DAILY 07/17/23 02/17/25 History release 24 hr zolpidem 10 mg tablet 5 mg PO QPM PRN sleep 07/17/23 02/16/25 History meloxicam 7.5 mg tablet 7.5 mg PO DAILY PRN pain #20 tabs 02/15/25 02/17/25 Rx albuterol sulfate 2.5 mg/3 mL 2.5 mg inhalation Q6H PRN 02/16/25 02/16/25 History (0.083 %) solution for nebulization shortness of breath or wheezing amitriptyline 10 mg tablet 10 mg PO .QHS 02/16/25 02/16/25 History amlodipine 10 mg tablet 10 mg PO DAILY 02/16/25 02/16/25 History apixaban 5 mg tablet (Eliquis) 2.5 mg PO Q12H 02/16/25 02/16/25 History ascorbic acid (vitamin C) 500 mg 500 mg PO BID 02/16/25 02/16/25 History tablet aspirin 81 mg chewable tablet 1 tab PO DAILY 02/16/25 02/16/25 History budesonide-formoterol HFA 160 2 puff inhalation Q12H 02/16/25 02/16/25 History mcg-4.5 mcg/actuation aerosol inhaler (Symbicort) ergocalciferol (vitamin D2) 1,250 1,250 mcg PO QWEEK 02/16/25 02/16/25 History mcg (50,000 unit) capsule hydroxyzine HCl 25 mg tablet 25 mg PO Q6H PRN anxiety 02/16/25 02/16/25 History multivitamin with folic acid 400 1 tab PO DAILY 02/16/25 02/16/25 History mcg tablet (Daily-Katja (with folic acid)) oxycodone-acetaminophen 7.5 mg-325 1 tab PO Q6H PRN pain 02/16/25 02/16/25 History mg tablet pravastatin 40 mg tablet 40 mg PO .QHS 02/16/25 02/16/25 History Allergies Allergy/AdvReac Type Severity Reaction Status Date / Time codeine AdvReac Intermediate Verified 09/24/22 17:23 ceclor AdvReac Intermediate Uncoded 09/24/22 17:23 Exam Narrative Exam Narrative: Patient resting in bed. Answering questions appropriately. Examination of the right hip shows diffuse tenderness around the hip. Pain with diffuse motion of the hip. Chronic nonhearing ulcer on the posterior aspect over the Achilles. Dorsiflexion and plantarflexion of the ankle intact. Wiggling toes appropriately. Sensation intact L2-S1. Pulses faint in the right lower extremity. Constitutional Vital Signs, click to edit/add: Last Vital Signs Temp 97.9 F 02/18/25 07:58 Pulse 99 H 02/18/25 09:41 Resp 16 02/18/25 07:58 BP 123/67 02/18/25 07:58 Pulse Ox 95 02/18/25 09:41 O2 Del Method Nasal Cannula 02/18/25 09:41 O2 Flow Rate 3 02/18/25 09:41 Results Labs Labs: Abnormal lab results 02/17/25 02/17/25 02/17/25 Range/Units 08:00 11:35 16:00 WBC (4.0-11.0) 10^3/uL RBC (4.20-5.40) 10^6/uL Hgb (12.0-16.0) g/dL Hct (36.0-48.0) % RDW (11.0-15.0) % MPV (9.5-13.5) fL Potassium (3.5-5.1) mmol/L Glucose (74-106) mg/dL Calcium (8.5-10.1) mg/dL AST (15-37) U/L Alkaline Phosphatase (46-116) U/L C-Reactive Protein (<=0.50) mg/dL Total Protein (6.4-8.2) g/dL Albumin (3.4-5.0) g/dL Stool Occult Blood Positive A POC Glucose 299 H (74-106) mg/dL Crossmatch See Detail 02/17/25 02/18/25 02/18/25 Range/Units 16:51 05:00 07:42 WBC 13.0 H (4.0-11.0) 10^3/uL RBC 3.58 L (4.20-5.40) 10^6/uL Hgb 9.8 L (12.0-16.0) g/dL Hct 30.4 L (36.0-48.0) % RDW 18.8 H (11.0-15.0) % MPV 9.1 L (9.5-13.5) fL Potassium 3.4 L (3.5-5.1) mmol/L Glucose 170 H (74-106) mg/dL Calcium 8.1 L (8.5-10.1) mg/dL AST 13 L (15-37) U/L Alkaline Phosphatase 141 H (46-116) U/L C-Reactive Protein 28.22 H (<=0.50) mg/dL Total Protein 5.0 L (6.4-8.2) g/dL Albumin 1.5 L (3.4-5.0) g/dL Stool Occult Blood POC Glucose 228 H 166 H (74-106) mg/dL Crossmatch H & H 02/16/25 02/17/25 02/18/25 Range/Units 03:18 04:50 05:00 Hgb 8.7 L 7.6 L 9.8 L (12.0-16.0) g/dL Hct 27.4 L 24.4 L 30.4 L (36.0-48.0) % All other labs normal. Diagnostic results Hip x-ray: image reviewed (2 view radiographs of the right hip obtained in the emergency department on 02/15/2025 show severe degeneration-necrosis of the right femoral head with significant erosion in the right acetabulum. Prior healing pubic rami fractures seen.) Hip CT: image reviewed (CT scan of the right hip obtained in the hospital 02/16/2025 personally interpreted by me show severe degeneration in the right hip joint with collapse of the femoral head and erosion of the pelvis.Subchondral cysts seen in the acetabulum and femoral head suggestive of chronic process. 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 Patient has avascular necrosis of the right femoral head with significant collapse and arthritis in her right hip joint. She has significant erosion of her acetabulum. Given her many medical comorbidities, she is not a candidate for a right total hip replacement. Regarding septic arthritis of the right hip, my suspicion for this is low. Radiographic findings show aseptic avascular necrosis with erosion. I do encourage her to continue with mobilization. She needs to quit smoking and improve many other medical issues including allowing these chronic ulcers to heal before considering any type of surgical intervention. Patient to follow-up outpatient.
[2025-02-18] MEDS: PANTOPRAZOLE SODIUM 40 MG TABLET.DR PO ×2 (10:54→20:56)
[2025-02-18] MEDS: HYDROMORPHONE HCL 1 MG/ML CARTRIDGE 0.25 MG IVP ×2 (10:56→14:06)
--- NOTE | 2025-02-18 12:07 | P.PN_ITS ---
Progress Note: Subjective Subjective Interval history: No new symptoms. Patient feels better overall. Exam Narrative Exam Narrative: Patient is very cachectic and frail in appearance. She appears to be 20 years older than her age. Bitemporal muscle wasting. Upper and lower extremities muscle wasting atrophy. Skin exam showed diffuse macular rash with superficial ulcerations involving her lower extremities anteriorly, medially and laterally with devious degrees of development and healing. She has similar rash on her upper extremities but not on her trunk. Patient is awake but not fully alert. Disoriented and confused. Moving her extremities. Able to answer questions. Chest exam revealed diminished breath sound. Heart is regular. Abdomen soft, scaphoid in appearance. Constitutional Vital Signs, click to edit/add: Last Vital Signs Temp 97.9 F 02/18/25 07:58 Pulse 99 H 02/18/25 09:41 Resp 16 02/18/25 07:58 BP 123/67 02/18/25 07:58 Pulse Ox 95 02/18/25 09:41 O2 Del Method Nasal Cannula 02/18/25 09:41 O2 Flow Rate 3 02/18/25 09:41 Progress Note: Objective Labs Labs: Short CBC 02/18/25 Range/Units 05:00 WBC 13.0 H (4.0-11.0) 10^3/uL Hgb 9.8 L (12.0-16.0) g/dL Hct 30.4 L (36.0-48.0) % Plt Count 201 (150-450) 10^3/uL BMP 02/18/25 05:00 Sodium 140 Potassium 3.4 L Chloride 106 Carbon Dioxide 25.9 BUN 16.0 Creatinine 0.57 Glucose 170 H Calcium 8.1 L Liver Function 02/18/25 Range/Units 05:00 Total Bilirubin 0.6 (0.2-1.0) mg/dL AST 13 L (15-37) U/L ALT 16 (14-59) U/L Alkaline Phosphatase 141 H (46-116) U/L Albumin 1.5 L (3.4-5.0) g/dL Progress Note: A&P Assessment and Plan (1) Encephalopathy: (2) PAD (peripheral artery disease): (3) 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 Previously grew Pseudomonas The good thing is that I started her on vancomycin on admission prior to blood culture coming back positive. Continue vancomycin. Continue Levaquin switching to meropenem to cover possible ESBL UTI in addition to Pseudomonas coverage for lower extremities cellulitis. I requested echocardiogram rule out endocarditis. She has a right hip effusion and severe discomfort. She may have septic joint. Requested MRI of the hip. MRI is on hold due to to further verification of previous metal in her body. Orthopedic physician to see her tomorrow for severe right hip necrosis and effusion with the possibility being septic joint. Patient was seen by Dr. Mullen who believes that patient has necrosis of the hip. He has low suspicion of septic joint. Hopefully the MRI will give us better definition of the hip joint. I am hoping that patient will agree to go down Encephalopathy, likely metabolic and septic encephalopathy. Much improved compared to admission state Requested CT head which came back negative for acute intracranial process. No unilateral deficit. 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 Patient has COPD. She may have hypercapnia. Requested a blood gas. Also requested toxicology screen which came back positive for oxycodone. Patient may be having toxic encephalopathy. I requested a blood gas which does not show hypercapnia. Diffuse skin rash as reported above. White count is elevated. SIRS present on admission Patient has multiple gangrenous formation involving her feet. Faint dorsalis pedis pulse. No clinical evidence of acute arterial compromise Presumed infectious until proven otherwise. Less likely allergic dermatitis Could be related to sepsis, could be related to DIC Previous wound culture came back positive for Pseudomonas that is sensitive to quinolones. Switching to meropenem to cover possibility of ESBL UTI and Pseudomonas cellulitis I started the patient on vancomycin and Levaquin as she is allergic to cephalosporin. Requested blood and urine culture. Blood culture is positive for staph, resistant to I requested haptoglobin and LDH. LDH was elevated but trending down. Patient would need to be seen by vascular. She may need to have angiogram or CTA of the legs. UTI Culture is positive for gram-negative organism Switching Levaquin to meropenem to cover possibility of ESBL Right hip pain. CAT scan showed severe arthrosis and joint effusion as well as hip erosion. Old fractures seen in the right acetabulum as well as healing fracture of the pubic rami. Due to blood culture coming back positive for staph the patient may have septic joint. Requested MRI of the hip to take a better look at the anatomy and subsequently to be seen by orthopedic team. Requested vitamin D level. Likely patient has osteoporosis. She would need DEXA scan to be done in the outpatient setting and initiation of bisphosphonate treatment if confirmed. Requested orthopedic consultation. Defer further diagnostic and therapeutic intervention relative to her musculoskeletal system to orthopedic team UTI Requested urine and blood culture Start patient on Levaquin. 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 Ultrasound showed the vascular stenosis and peripheral vascular disease. No clinical evidence of acute arterial compromise. No cyanosis just dry multiple gangrenous formation involving her feet as documented by ward helper. Patient would likely require to have a CTA of the lower extremities and/or angiogram. Anemia, no evidence of acute blood loss. Iron studies consistent with mixed etiology, iron deficiency with a low saturation and anemia of chronic disease. Patient had history of upper GI bleed where she had an EGD in [place]. Check stool Hemoccult. Start patient on PPI. Further drop of her hemoglobin overnight. Place Eliquis on hold 1 unit of RBC transfusion.. Patient will likely require to have additional anemia workup to be done in the outpatient setting to be handled by PCP in collaboration with other needed outpatient providers. This may include but not limited to EGD, colonoscopy, referral to see hematology and other needed age-appropriate cancer screening. Severe cachexia, frailty, muscle wasting, failure to thrive, moderate to severe protein calorie malnutrition, failure to thrive. Patient appears to be 20 years older than her age. I started patient on protein oral supplementation. Likely patient will require weight loss and cachexia workup rule out malignancy. This could be done in the outpatient setting by PCP. She may need to have breast exam, mammography, HD, colonoscopy, PARADICHLOROBENZENE TENDER exam and others. Functional impairment, no unilateral deficit. Likely caused by severe muscle wasting and cachexia. Requested PT OT eval and treatment. Likely patient will require longterm facility. She may require [facility]-term jail residential living. Requested the case management consultation. COPD, active smoker 1 pack/day. No exacerbation. Patient is at risk having a lung cancer. She would require yearly low-dose radiation CAT scan of the chest to screen for lung cancer to be arranged in the outpatient setting by PCP. History of CAD. No active chest pain or angina. Hypokalemia Potassium supplementation. Check magnesium and phosphorus level which came back normal Diabetes. A1c is 6.5. I started patient on sliding scale Likely will require to be on oral medication. History of PE for which patient was discharged on Eliquis 2.5 mg twice a day. Given her hemoglobin drop and previous history of upper GI bleed I will hold Eliquis for 24 to 48 hours. Heme stool is positive continue to hold Eliquis Patient may not need lifelong anticoagulation treatment. Chronic, subacute medical conditions not listed above, abnormal labs and imaging, incidental findings seen on labs and or imaging. These would need to be addressed. Could be addressed later on or in the outpatient setting by PCP collaboration with other needed outpatient providers when time and condition are appropriate. Overall patient has poor prognosis given her complex medical issues as listed above in the setting of severe protein calorie malnutrition and failure to thrive. I informed the patient that I am planning to transfer her to [facility] or tertiary care center. She is refusing to allow me to initiate the transfer. She understood potential risk and implications. She told nurse that she does not want to go to jail and does not want to have an MRI done. I went back and talk to her. Spent additional 40 minutes tried to convince her to proceed with needed testing and potentially transfer. She does not want to go to jail. She does not want to be transferred at this time. Urinary Catheter Management Urinary Catheter Management 2-way Urethral: Cath placed during this visit: yes Urethral indwelling: No Insertion date: 02/16/25 Insertion time: 03:00
--- NOTE | 2025-02-18 12:16 | CT_ITS ---
The [address] [address] Patient Name: JONATAN SPENCER MRN: [id number] date: 1960 Sex: F Assigned Patient Location: [place] Current Patient Location: [place] Accession/Order Number: [id number] Exam Date: 02/18/2025 14:15 Report Date: 02/19/2025 08:28 At the request of: KIKO SMART MD Procedure: CT angio LE BI CTA OF THE LOWER EXTREMITIES WITH CONTRAST CLINICAL DATA: Peripheral vascular disease COMPARISON: Bilateral lower extremity Doppler 02/16/2025 Spiral images were obtained through the pelvis and lower extremities following 100 mL of Omnipaque 350. Sagittal, coronal and 3-D volume rendered constructions of the vessels were reviewed. This CT exam was performed using one or more following dose reduction techniques: Automated exposure control, adjustment of the mA and/or kV according to patient size, or use of iterative reconstruction technique. There is atherosclerotic plaque involving the internal and external iliac arteries in the field of view. Mild to moderate luminal narrowing is seen. There are bilateral external iliac bypass grafts which are patent. There is suggestion of a femorofemoral graft however it is not opacified. At the anastomosis at the right groin there is heavy calcification and the little if any blood flow. There is surrounding fluid that may be a thrombosed vessel and this extends at least to the mid thigh. At the left groin, there is a superficial femoral artery graft which is not opacified throughout its course down the leg. The remainder of the superficial femoral artery on the right and ch[place] vessel on the left show moderate atherosclerotic plaque with little if any vascular flow. The deep femoral artery is better opacified however there is some additional plaque and areas of diminished opacification. These findings extend through the popliteal fossa and into the calf on both sides where there is additional atherosclerotic plaque. The vessels of the trifurcation are small and the peroneal arteries are not well visualized on both sides. Images through the imaged pelvis show a Sharif catheter within the urinary bladder. There is a ventral hernia containing nondistended small bowel loops and stool containing colon. No diverticular disease is noted. No ascites is seen. There is prominent degenerative change at the right hip joint effusion, also noted on recent head CT. CT/CT angio LE BI IMPRESSION: DIFFUSE ATHEROSCLEROTIC DISEASE. THROMBOSED FEMOROFEMORAL AND LEFT SUPERFICIAL FEMORAL ARTERY STENTS. MULTILEVEL STENOSIS WITH POOR LOWER EXTREMITY CIRCULATION ON BOTH SIDES. Impression dictated by: Lindsey Menchaca M.D. 02/19/2025 8:28 AM Dictation Location: [place] [address] Electronically authenticated by: [id number] Y Date: 02/19/2025 08:28
--- NOTE | 2025-02-18 12:58 | SWNOTE1 ---
[facility] is not able to accept. SW to see if pt has another preference. Pt is limited on options due to her insurance, Medicaid.
[2025-02-18] MEDS: IMIPENEM/CILASTATIN SODIUM 500 MG in 0.9 % SODIUM CHLORIDE 100 ML 200 MG IV (13:02)
--- NOTE | 2025-02-18 13:47 | PC.NURSE ---
Patient refused CT and stated I will not be doing this CT, I'm not laying flat this is bullshit. You can tell the ladies from CT I am refusing the CT. Texted Dr. Laguerre and told him patient said she refuses the CT and Dr. Laguerre told me to go tell patient that she either is going to have to choose to do the CT or go home with hospice. I told patient what Dr. Laguerre said and she stated well no thats not happening, I'm not fucking doing CT. Send me home with hospice then.
--- NOTE | 2025-02-18 14:35 | CM.NOTE ---
CM downstairs with pt for CT. CM providing support for pt. Pt now back to room and positioned for comfort.
--- NOTE | 2025-02-18 14:41 | SWNOTE1 ---
SW to speak with pt tomorrow about home health or SNF, pt is getting MRI done today.
--- NOTE | 2025-02-18 17:09 | PC.NURSE ---
Notified eve the med surg veneer supervisor of overhearing patient on phone with son asking him to bring ambien. Confronted son when he came in to hand over any meds he brought in and he got aggressive and said he didn't have any drugs on him. Elizabeth berger also confronted the son as well that meds can not be brought in.
[2025-02-18] MEDS: REMOVE PATCH 1 PATCH TOPICAL (18:18)
--- NOTE | 2025-02-18 18:58 | PM.EN ---
Event Note Event Note: Pt has been difficult to deal with. refusing lines, refusing then accepting then refusing to go down for CTA, MRI, Changing her mind back and forth Pt declined to permit for a transfer to [facility] for vasculer and ID eval even after understanding benefit and risk otherwise. Pt is contantly asking for pain meds, anxiety meds, sleeping meds. I informed pt that she might over dose. I described how she presented to ER lethargic and confused. Nurse overheard pt talking tp her son over the phone asking him to bring her some pain meds and sleeping meds from home so she can take while in hospital without my knowledge.
[2025-02-18] MEDS: ZOLPIDEM TARTRATE 5 MG TABLET PO (20:56)
[2025-02-18] MEDS: IMIPENEM/CILASTATIN SODIUM 500 MG in 0.9 % SODIUM CHLORIDE 100 ML 100 MG IV (20:56)
[2025-02-19] MEDS: OXYCODONE HCL/ACETAMINOPHEN 5MG/325MG 1 TAB PO ×3 (00:22→14:36)
[2025-02-19 04:51] VITALS: O2SAT 96
[2025-02-19 05:00] VITALS: BP 145/72; PULSE 83; TEMP 36.6; O2SAT 92
[2025-02-19] MEDS: 0.9 % SODIUM CHLORIDE 250 ML 10 ML IV (05:01)
[2025-02-19] MEDS: ACETAMINOPHEN 325 MG TABLET 650 MG PO ×2 (05:01→13:41)
[2025-02-19] MEDS: IMIPENEM/CILASTATIN SODIUM 500 MG in 0.9 % SODIUM CHLORIDE 100 ML 200 MG IV (05:01)
[2025-02-19 06:03] LABS: Hematocrit 32.3 % (36.0-48.0); Hemoglobin 10.6 g/dL (12.0-16.0); Mean Corpuscular HGB Conc 32.8 g/dL (29.9-35.2); Mean Corpuscular Hemoglobin 27.4 pg (26.7-34.0); Mean Corpuscular Volume 83.5 fL (81.0-99.0); Platelet Count 165 10^3/uL (150-450); Red Blood Count 3.87 10^6/uL (4.20-5.40); White Blood Count 11.2 10^3/uL (4.0-11.0)
[2025-02-19 06:12] LABS: Alanine Aminotransferase 15 U/L (14-59); Albumin Globulin Ratio 0.4; Albumin Level 1.5 g/dL (3.4-5.0); Alkaline Phosphatase 146 U/L (46-116); Anion Gap 10.4; Aspartate Amino Transferase 19 U/L (15-37); Blood Urea Nitrogen 8.0 mg/dL (7.0-18.0); Calcium 8.1 mg/dL (8.5-10.1); Carbon Dioxide 27.0 mmol/L (21.0-32.0); Chloride 103 mmol/L (98-107); Estimated GFR (African America >60 (>=60 mL/min/1.73m^2); Estimated GFR (Non-African Ame >60 (>=60 mL/min/1.73m^2); Globulin 3.7 g/dL; Glucose 137 mg/dL (74-106); Potassium 3.4 mmol/L (3.5-5.1); Sodium 137 mmol/L (136-145); Total Protein 5.2 g/dL (6.4-8.2)
[2025-02-19 07:47] VITALS: BP 146/77; PULSE 92; TEMP 36.6; O2SAT 90
[2025-02-19] MEDS: VANCOMYCIN HCL 750 MG in 0.9 % SODIUM CHLORIDE 250 ML 250 MG IV (08:52)
[2025-02-19] MEDS: ASPIRIN 81 MG TAB.CHEW PO (08:53)
[2025-02-19] MEDS: CELECOXIB 100 MG CAPSULE PO (08:53)
[2025-02-19] MEDS: METOPROLOL SUCCINATE 25 MG TAB.ER.24H PO (08:53)
[2025-02-19] MEDS: POTASSIUM CHLORIDE 10 MEQ ER TABLET 40 MEQ PO (08:53)
[2025-02-19] MEDS: PANTOPRAZOLE SODIUM 40 MG TABLET.DR PO (08:53)
[2025-02-19 08:58] LABS: Magnesium 1.7 mg/dL (1.8-2.4)
[2025-02-19] MEDS: BUDESONIDE 0.5 MG/2 ML AMPULE NEB IH (09:11)
[2025-02-19 09:12] VITALS: PULSE 98; O2SAT 94
[2025-02-19] MEDS: ALBUTEROL SULFATE 2.5 MG/3 ML VIAL NEB IH (09:12)
[2025-02-19] MEDS: INSULIN ASPART 300 UNIT/3 ML PEN SUBQ (11:34)
--- NOTE | 2025-02-19 11:57 | CM.NOTE ---
Rounds made with Dr. Laguerre, no discharge today. CT results discussed with patient and the plan is for the patient to have her MRI today.
--- NOTE | 2025-02-19 12:34 | PM.DS1 ---
DS: Providers Provider Date of admission: 02/16/25 09:08 Primary care physician: Non-Staff PhysicianMD Consults: 02/16/25 Consult to Dietitian Routine Reason for consultation: Weight Loss Consult to Podiatry Routine Consulting Provider: Sherman Devlin Reason for consultation: achilles wound Has provider been notified: Yes Consult to Wound Care Routine Consulting Provider: Cecil Ricketts Reason for consultation: bilateral leg/feet wounds Has provider been notified: Yes 02/16/25 09:32 Consult to Orthopedics Routine Consulting Provider: Arben Mullen Reason for consultation: Hip pain 02/16/25 11:11 Occupational Therapy Eval and Treat Routine Reason for consultation: Weakness Physical Therapy Eval and Treat Routine Reason for consultation: Weakness DS: Diagnosis Discharge Diagnosis (1) Encephalopathy: (2) PAD (peripheral artery disease): (3) 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 Olivarez is a 64-year-old female who came to the emergency room with change in mental status. She was found to have the following: Sepsis and bacteremia present on admission MRSA bacteremia E. coli and ESBL, CRE Klebsiella UTI Bilateral lower extremity cellulitis. Previously grew Pseudomonas Her antibiotic initially started as vancomycin and Levaquin. Now the urine culture showed CRE Klebsiella which is sensitive to Tygacil I switched her antibiotic to ceftazidime to cover E. coli UTI and history of Pseudomonas infected cellulitis. Tygacil to cover MRSA bacteremia and Klebsiella CRE UTI. Repeat blood culture is completed this morning. Encephalopathy, likely toxic, metabolic and septic encephalopathy. Her encephalopathy had completely resolved. Requested CT head which came back negative for acute intracranial process. No unilateral deficit. 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 Patient has COPD. She may have hypercapnia. Requested a blood gas. No hypercapnia noted on a blood gas Also requested toxicology screen which came back positive for oxycodone. Patient may be having toxic encephalopathy. I suspect that her encephalopathy is toxic secondary to polypharmacy with STOCK HANGER side effect as well as septic and metabolic encephalopathy Diffuse bilateral lower extremities infected ulceration and cellulitis. This could be the source of MRSA bacteremia Previously, patient tested positive for Pseudomonas wound Antibiotic changed to ceftazidime to cover previous Pseudomonas cellulitis and Tygacil to cover MRSA bacteremia and cellulitis UTI Urine culture is coming back positive for E. coli and Klebsiella CRE. Antibiotic was changed to ceftazidime and Tygacil to cover both organisms. Right hip pain. CAT scan showed severe arthrosis and joint effusion as well as hip erosion. Old fractures seen in the right acetabulum as well as healing fracture of the pubic rami. Due to blood culture coming back positive for staph the patient may have septic joint. Requested MRI of the hip to take a better look at the anatomy and subsequently to be seen by orthopedic team. Unfortunately MRI could not be completed until we receive information about her lower extremity stent. Meanwhile patient was seen by orthopedic physician Dr. Mullen who has low suspicion of septic joint but could not make final determination until MRI is completed. I am hoping that MRI will be completed at [facility]. Peripheral vascular disease. Lower extremities edema, gangrene involving the tip of the left second toe No clinical evidence to suggest acute arterial compromise Requested venous study rule out DVT, arterial study rule out PVD. Arterial duplex showed moderate to severe peripheral vascular disease, occlusive segment of the right and left SFA stent. 68% stenosis of the right common femoral vein. CTA of the lower extremity showed thrombosed femoral and left superficial femoral artery stents Patient was on Eliquis for previous history of PE. Eliquis was placed on hold due to anemia with hemoglobin drop. Now that the CTA showed thrombosed stent I would recommend to start her on Lovenox 1 mg/kg twice a day with close monitoring of her H&H H&H has been stable since transfusion. I discussed her case with vascular surgeon Dr. Gomez who stated that he will be able to address her vascular needs at [facility] and willing to see patient in consultation. I appreciate Dr. Gomez acceptance to take care of this patient. Strongly recommend patient to stop smoking. Anemia, no evidence of acute blood loss. Iron studies consistent with mixed etiology, iron deficiency with a low saturation and anemia of chronic disease. Patient had history of upper GI bleed where she had an EGD in [place]. Check stool Hemoccult this came back positive. Started patient on PPI. H&H dropped requiring blood transfusion. Eliquis has been placed on hold. CTA showed thrombosed lower extremity stent therefore I will start patient on Lovenox 1 mg/kg twice a day. Continue PPI twice a day. Close monitoring of her H&H. Severe cachexia, frailty, muscle wasting, failure to thrive, moderate to severe protein calorie malnutrition, failure to thrive. Patient appears to be 20 years older than her age. I started patient on protein oral supplementation. Likely patient will require weight loss and cachexia workup rule out malignancy. This could be done in the outpatient setting by PCP. She may need to have breast exam, mammography, HD, colonoscopy, SUPERIOR COURT JUDGE exam and others. Functional impairment, no unilateral deficit. Likely caused by severe muscle wasting and cachexia. Requested PT OT eval and treatment. Likely patient will require long-term facility. She may require long-term intermediate residential living. Requested the case management consultation. COPD, active smoker 1 pack/day. No exacerbation. Patient is at risk having a lung cancer. She would require yearly low-dose radiation CAT scan of the chest to screen for lung cancer to be arranged in the outpatient setting by PCP. History of CAD. No active chest pain or angina. Hypokalemia, hypomagnesemia, hypophosphatemia Potassium, magnesium and phosphorus supplementation Diabetes. A1c is 6.5. I started patient on sliding scale Likely will require to be on oral medication. History of PE for which patient was discharged on Eliquis 2.5 mg twice a day. Eliquis was placed on hold and now patient will be started on Lovenox subcutaneous injection due to thrombosed lower extremity stent Chronic, subacute medical conditions not listed above, abnormal labs and imaging, incidental findings seen on labs and or imaging. These would need to be addressed. Could be addressed later on or in the outpatient setting by PCP collaboration with other needed outpatient providers when time and condition are appropriate. Overall patient has poor prognosis given her complex medical issues as listed above in the setting of severe protein calorie malnutrition and failure to thrive. Once again I have discussed her case with vascular surgeon Dr. Gomez who accepted to evaluate and manage patient at [facility]. I will be calling my colleague hospitalist at [facility] and discussed the case further. Hopefully he will patient will be able to go to [facility] for needed comprehensive medical and surgical care. Specialty care includes hospitalist, infectious disease, vascular, orthopedic, GI and podiatry as well as social work and case management Time Spent with Patient Time attestation: Total time spent providing and/or coordinating discharge services: Exam Constitutional Vital Signs, click to edit/add: Last Vital Signs Temp 97.9 F 02/19/25 07:47 Pulse 98 H 02/19/25 09:12 Resp 18 02/19/25 09:12 BP 146/77 H 02/19/25 07:47 Pulse Ox 94 L 02/19/25 09:12 O2 Del Method Nasal Cannula 02/19/25 09:12 O2 Flow Rate 2 02/19/25 09:12 DS: Data Data Completed and Pending Labs on day of discharge: Labs from last 24 hours 02/19/25 02/19/25 02/19/25 11:32 05:57 04:57 WBC 11.2 H RBC 3.87 L Hgb 10.6 L Hct 32.3 L MCV 83.5 MCH 27.4 MCHC 32.8 RDW 19.0 H Plt Count 165 MPV 8.9 L Sodium 137 Potassium 3.4 L Chloride 103 Carbon Dioxide 27.0 Anion Gap 10.4 BUN 8.0 Creatinine 0.45 L Est GFR ( Amer) >60 Est GFR (Non-Af Amer) >60 BUN/Creatinine Ratio 17.8 Glucose 137 H Calcium 8.1 L Phosphorus 2.3 L Magnesium 1.7 L Total Bilirubin 0.4 AST 19 ALT 15 Alkaline Phosphatase 146 H C-Reactive Protein 29.60 H Total Protein 5.2 L Albumin 1.5 L Globulin 3.7 Albumin/Globulin Ratio 0.4 POC Glucose 236 H 02/18/25 02/18/25 21:26 17:11 WBC RBC Hgb Hct MCV MCH MCHC RDW Plt Count MPV Sodium Potassium Chloride Carbon Dioxide Anion Gap BUN Creatinine Est GFR ( Amer) Est GFR (Non-Af Amer) BUN/Creatinine Ratio Glucose Calcium Phosphorus Magnesium Total Bilirubin AST ALT Alkaline Phosphatase C-Reactive Protein Total Protein Albumin Globulin Albumin/Globulin Ratio POC Glucose 72 L 241 H Preliminary micro results at discharge 02/16/25 11:20 Blood Culture Result 2 - Preliminary Blood - Left Hand 02/16/25 11:14 Blood Culture Result 1 - Preliminary Blood - Right Hand 02/16/25 03:26 Urine Culture - Preliminary Urine,Clean Catch Pending - Specimen sent to [facility] Discharge Plan Discharge Disposition: Xfer Acute Care Hospital Condition: Fair
--- NOTE | 2025-02-19 13:20 | P.EN_ITS ---
Event Note Event Note: I spoke with my colleague Dr. Nevarez at [facility]. I gave him a report and discussed her in details He accepted to admit her under his service and proceed with additional needing medical and surgical care including but not limited to hospitalist, ID, vascular, orthopedic and GI as well as podiatry
--- NOTE | 2025-02-19 13:30 | CM.NOTE ---
[facility] notified that spoke with Dr Nevraez and he has accepted the patient for transfer when a bed becomes available.
[2025-02-19] MEDS: KETOROLAC TROMETHAMINE 30 MG/ML VIAL 15 MG IVP (13:41)
[2025-02-19] MEDS: ENOXAPARIN SODIUM 60 MG/0.6 ML SYRINGE 50 MG SUBQ (13:41)
[2025-02-19] MEDS: CEFTAZIDIME 1,000 MG in 0.9 % SODIUM CHLORIDE 50 ML 100 MG IV (13:41)
--- NOTE | 2025-02-19 14:47 | SWNOTE1 ---
[facility]. JG called Starla at [facility] to update her for continuation of care.
[2025-02-19] MEDS: MAGNESIUM SULFATE IN WATER 2 GM/50 ML PREMIX IV (15:11)
[2025-02-19] MEDS: SOD PHOSPHATE,MONOBASIC-DIBAS 30 MMOL in 0.9 % SODIUM CHLORIDE 250 ML 43.333 MMOL IV (15:12)
[2025-02-19 15:15] VITALS: O2SAT 95
--- NOTE | 2025-02-19 15:47 | PC.NURSE ---
Patient called data analyst report writer and states she wants to go home and she will report to [facility] on Saturday since nothing is going to be done until then at [facility]. Catalogue Illustrator explained that patient is still receiving IV meds and being treated here and will get the same treatment at [facility], however no vascular surgery until blood culture results are finalized. She states she has affairs to get in order and she will go to [facility] Saturday. Catalogue Illustrator explained if she left it would be AMA and she states she doesnt care, she will sign the paper. Catalogue Illustrator notifed Dr Laguerre and patient states she will wait to talk to doctor.
--- NOTE | 2025-02-19 17:43 | PC.NURSE ---
1546- tiger text to Dr Laguerre about patient wanting to leave. No response at this time. 1555 - patient called and asked if process description writer was able to get ahold of doctor. Tag Machine Operator states that he has not yet responded. She states well he better hurry up because my son is on his way 1603 - process description writer attempted to call Dr Laguerre cell but it went to [facility]. 1612 - patient called out asking if her catheter could be removed. Tag Machine Operator entered room and patient asked if her catheter was going to be taken out before she left. Tag Machine Operator sat at bedside and explained thoroughly her risks of leaving AMA. Tag Machine Operator explained her current care would be continued at [facility] this weekend. She states she has affairs she needs to get in order at home and she will be fine till Saturday when she goes to [facility]. Tag Machine Operator explained that patient is very ill and needs IV ATB's, wound care, etc. Patient states she has ATB's at home she can take if she starts feeling bad but she will be fine. Tag Machine Operator explained that those ATB's are most likely not the correct ATB she needed to be on for this infection she has and that she runs the risk of sepsis and possibly if left untreated this weekend. She again says ill be fine . She states her son will be here any moment. Tag Machine Operator asked if he was bringing her oxygen from home and she states I dont need it just to go to [place] . Tag Machine Operator removed catheter at this time as well as PICC line. Son arrived during removal of catheter. They brought her clothes into room and helped her dress herself while process description writer left room to get AMA paper. 1630 - patient signed AMA paper in front of son and grandson. Tag Machine Operator states Now i want to remind you that you are going home with no medications, no home health services, no wound supplies She states yep, i know . Her son asked and why is this that she's leaving with none of this? electrical and radio mock up mechanic explained that she was leaving AMA. He was not happy about this situation. 1636 - Tag Machine Operator walked with patient and son to her car. He was angry with patient and he was trying to get her to understand that she needed to stay and that at home she had no wound supplies so her feet will get infected. Tag Machine Operator again explained one last time that patient is very ill and needs this treatment she was getting here and she states Well i have affairs to get in order that I want to take care of myself because i was in [place] for 2.5 months and now here . Tag Machine Operator stated That is completely understandable but unless you take care of yourself and your health, you could and someone else will have to take care of your affairs anyways . Patient stated I wish you wouldnt say those things in front of my son which process description writer and son both stated Its true . electrical and radio mock up mechanic also explained that her son cares for her and so do we here at [facility] and just want the best for her.
--- NOTE | 2025-02-19 17:44 | PM.EN ---
Event Note Event Note: After I spent few hours this after noon discussing her case with Vascular and hospitalist at [facility], I was able to get her accepted to be transferred for ID, Ortho, vascular, GI eval and tx. Unfortunately, Pt decided to leave AMA after I left the hospital. Nurse Debbie tried very hard and repeatedly to convince her not to leave AMA explaining risk of sepsis, multiorgan failure and . Pt would not listen to her and insisted on leaving AMA to take care of a personal affair at home. ( Nurse on 02/18 overhead pt speaking on phone with some one and asked him/her not to touch her stash of ?? ) I called her cell phone as listed 3-4 times at [phone] trying to convince her to come back to ER. She did not answer the phone. I called her son Javier who is listed as POA. He answered the phone. 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 I urged him to convince his mom to come back to ER at [place] or go to [facility]. He understood the seriousness of this. He said that he is going back home right now and bring pt back to ER. The female voice in background explained to him that MRSA infection could be deadly. Javier called me back within 10 mins stating that he is back at the house and tried to convince his mom to go back to ER but she is not willing to come back. Javier put me on a speaker phone. Kristal stated that she would go to [facility] on Saturday to have the vascular procedure done. I again informed her in simple terms that she needs to have multiple doses of antbx between now and Saturday to clear her MRSA infection before they can operate on her circulation. I informed her in laymen terms that if she doesn't receive antbx between now and Saturday she will develop sepsis and could . Conversation went back and forth. Finally, she did not have anything else to say. He son Javier stated that he will not allow her to stay home until . He told her that she is going back to [place] or [facility] ER this evening for sure. Javier thanked me for the effort and time I spent taking care of his mom and trying to convince her to get the care she needs.
[2025-02-22 07:18] LABS: A. calcoaceticus-baumannii Cpx NOT DETECTED (NOT DETECTE); Bacteroides fragilis NOT DETECTED (NOT DETECTE); Candida auris NOT DETECTED (NOT DETECTE); Candida glabrata NOT DETECTED (NOT DETECTE); Enterobacterales NOT DETECTED (NOT DETECTE); Enterococcus faecalis NOT DETECTED (NOT DETECTE); Enterococcus faecium NOT DETECTED (NOT DETECTE); Klebsiella aerogenes NOT DETECTED (NOT DETECTE); Klebsiella pneumoniae group NOT DETECTED (NOT DETECTE); Proteus spp. NOT DETECTED (NOT DETECTE); Salmonella spp. NOT DETECTED (NOT DETECTE); Serratia marcescens NOT DETECTED (NOT DETECTE); Source BLOOD; Staphylococcus epidermidis NOT DETECTED (NOT DETECTE); Staphylococcus lugdunensis NOT DETECTED (NOT DETECTE); Stenotrophomonas maltophilia NOT DETECTED (NOT DETECTE); Streptococcus pyogenes NOT DETECTED (NOT DETECTE); Streptococcus spp. NOT DETECTED (NOT DETECTE)
--- NOTE | 2025-02-22 07:30 | CM.NOTE ---
Discussed final culture results with Dr. Laguerre, pt was transferred to higher level of care.
[2025-02-22 09:13] LABS: Staphylococcus spp. DETECTED (NOT DETECTE); mecA/C and MREJ (MRSA) DETECTED (NOT DETECTE)
== END 2025-02-19 16:36 | disposition left against medical advice (07) | DRG 720 ==
LOC: ER 08:30 → MS 09:10
PROVIDERS: Internal Medicine; Admitting Provider Internal Medicine; Emergency Provider Emergency Medicine; Visit Provider Internal Medicine
DX: A41.02 Sepsis due to Methicillin resistant Staphylococcus aureus (principal); G93.41 Metabolic encephalopathy; R64 Cachexia; G92.8 Other toxic encephalopathy; L89.622 Pressure ulcer of left heel, stage 2; I96 Gangrene, not elsewhere classified; E43 Unspecified severe protein-calorie malnutrition; R62.7 Adult failure to thrive; N39.0 Urinary tract infection, site not specified; D63.8 Anemia in other chronic diseases classified elsewhere; Z53.29 Procedure and treatment not carried out because of patient's decision for other reasons; R21 Rash and other nonspecific skin eruption; L97.313 Non-pressure chronic ulcer of right ankle with necrosis of muscle; L89.890 Pressure ulcer of other site, unstageable; E11.52 Type 2 diabetes mellitus with diabetic peripheral angiopathy with gangrene; Z99.81 Dependence on supplemental oxygen; M16.11 Unilateral primary osteoarthritis, right hip; M87.851 Other osteonecrosis, right femur; I50.9 Heart failure, unspecified; E83.39 Other disorders of phosphorus metabolism; R60.0 Localized edema; M25.551 Pain in right hip; I11.0 Hypertensive heart disease with heart failure; M54.9 Dorsalgia, unspecified; F17.200 Nicotine dependence, unspecified, uncomplicated; G89.29 Other chronic pain; D50.9 Iron deficiency anemia, unspecified; J44.9 Chronic obstructive pulmonary disease, unspecified; F17.210 Nicotine dependence, cigarettes, uncomplicated; I25.10 Atherosclerotic heart disease of native coronary artery without angina pectoris; Z79.01 Long term (current) use of anticoagulants; E87.6 Hypokalemia; I25.2 Old myocardial infarction; Z79.899 Other long term (current) drug therapy; Z95.5 Presence of coronary angioplasty implant and graft; Z79.82 Long term (current) use of aspirin; E11.622 Type 2 diabetes mellitus with other skin ulcer; Z86.711 Personal history of pulmonary embolism; L03.116 Cellulitis of left lower limb; L03.115 Cellulitis of right lower limb; B96.20 Unspecified Escherichia coli [E. coli] as the cause of diseases classified elsewhere; Z68.1 Body mass index [BMI] 19.9 or less, adult; B96.1 Klebsiella pneumoniae [K. pneumoniae] as the cause of diseases classified elsewhere; R19.5 Other fecal abnormalities; E83.42 Hypomagnesemia
CPT/HCPCS: 36415; 36430; 36569; 36592; 36600; 51702; 70450; 71045; 72131; 73502; 73700; 73706; 76376; 80048; 80053; 80076; 80202; 80307; 81001; 82306; 82607; 82728; 82746; 82805; 82948; 83010; 83036; 83540; 83550; 83605; 83615; 83735; 84100; 84443; 85007; 85027; 86140; 86850; 86900; 86901; 86923; 87040; 87077; 87086; 87088; 87150; 87186; 93005; 93306; 93925; 93970; 94640; 94761; 96372; 97162; 97165; 97530; 97535; 99285; 99406; C1887; G0328; J0713; J0743; J0744; J1171; J1230; J1650; J1885; J2270; J2919; J3243; J3373; J3475; P9016; Q9967

== ENCOUNTER 2025-02-19 18:40 | Emergency (ER) | payer MEDICAID, SELFPAY ==
--- OUTSIDE RECORDS SUMMARY | 2025-02-17 19:37 | XMS_ITS | Continuity of Care Document ---
Author Organization [facility] Address [address] [place] [address] Phone Care Team Providers Care Pitching Coach Name Role Phone Anastacio Huffman MD Attending Provider NON STAFF Attending Provider Unavailable Care Teams Patient Care Team Team Status: Active Member Role/Relationship Status Dates NON STAFF Primary Care Provider Active Visit Care Team Team Status: Inactive Member Role/Relationship Status Dates Anastacio Huffman MD Attending Provider Active St art: February 16, 2025 End: February 16, 2025 Visit Care Team Team Status: Inactive Member Role/Relationship Status Dates NON STAFF Attending Provider Active Start: No vember 2024 End: February 16, 2025 Visit Care Team Team Status: Inactive Member Role/Relationship Status Dates NON STAFF Attending Provider Active Start: No vember 2024 End: February 16, 2025 Allergies, Adverse Reactions, Alerts Allergen Type Severity Reaction Last Updated Verified Status codeine Allergy Unknown Hives January 19, 2024 3:45pm Yes Active Social History Smoking Status Status Start Date End Date Date of Observa tion Smokes tobacco daily (finding) January 20, 2024 3:56pm Observation Status Observation Response Date of Response Legal Sex [facility] (finding) [facility] 1960 Problems Active Problems Problem Diagnosis/Recorded Date Onset Date Status C omments Chronic hypoxic respiratory failure January 23, 2024 3:58pm Unknown Active H/O heart artery stentOctober 2023 3:91rnEguhlvjXlpxiya3KLM (coronary artery disease)January 19, 2024 10:00pmUnknownActiveAnemiaOctober 2023 10:55amUnknownActiveHypoxiaOctober 2023 6:45pmUnknownActiveNonspecific ST- T wave electrocardiographic changesOct2023 6:45pmUnknownActiveCOPD (chronic obstructive pulmonary disease)January 19, 2024 3:50pmUnknownActive Pulmonary emboliOctober 2023 6:45pmUnknownActiveChest painOct2023 6:45pmUnknownActiveInactive/Resolved Problems Problem Diagnosis/Recorded Date Onset Date Status C omments Heart failure January 19, 2024 6:45pm Unknown Resolve d HypotensionOct2023 6:45pmUnknownResolved Medications Medication Status Dose Units Route Directions Qty Days Refills S tart Date Stop Date End Date Reason(s) Instructions Adherence Levothyroxine (Synthroid) 150 mcg tablet Active 150 MCG PO Daily January 18, 2024 11:00pmUnknownPregabalin (Lyrica) 150 mg capsuleDiscontinued 150MGPOTwice dailyOct2023 11:00pmOct[facility] 2023 2:47pmpt unable to verify home meds at this timeDiscontinuedOct2023 11:00pmOct2023 3:55pmPantoprazole 40 mg tablet,delayed release (DR/EC)Zfpbga92DSRW Twice dailyOct2023 11:00pmUnknownAspirin (Adult Low Dose Aspirin) 81 mg tablet,delayed release (DR/EC)Hlgeyg86ZXPBNwfqqGcygugl 19th, 2024 11:00pm UnknownClopidogrel (Plavix) 75 mg rihdmdNrtfgjpvpihh93KQWKEkshbOjxoxli 19th, 2024 11:00pmOctbreckinridge [facility] 2023 2:47pmGabapentin 800 mg dufngoXqykouvfegju792GVPY Four times dailyJanuary 18, 2024 11:00pmOctbreckinridge [facility] hospital 2023 2:47pmIbuprofen (Ibu) 800 mg huqxxuLpcrydqzobso564TXZWGjyvl times daily as needed for pain January 18, 2024 11:00pmOct2023 2:47pmMetoprolol Succinate 25 mg tablet extended release 24 hiUsbeoq07GZSBFrexlBdwrrap 19th, 2024 11:00pmUnknown Isosorbide Mononitrate 60 mg tablet extended release 24 toWfllyg32DQERHkieb January 18, 2024 11:00pmUnknownQuetiapine (Seroquel) 25 mg tabletDiscontinued 25MGPODailyOct2023 11:00pmOct2023 2:47pmSucralfate (Carafate) 100 mg/mL emzxuvtjlaVxgbex23DVXEZzkpb 6 hoursJanuary 18, 2024 11:00pmUnknownOxycodone-Acetaminophen 10-325 mg xhtchcVrkcrr4NDLSYLeulh 8 hours as needed for painJanuary 18, 2024 11:00pmUnknownHydrocodone-Acetaminophen 5- 325 mg mrlwwcBydushcxflxm4GTAQAFokta times daily as needed for painJanuary 19, 2024 11:00pmOct2023 2:47pmPregabalin (Lyrica) 150 mg capsule Gwgotavdilha167FHDPJmgxv dailyJanuary 19, 2024 11:00pmOct2023 2:47pmOxycodone-Acetaminophen 5-325 mg yucoawChakoxpyvriq5WBHSES6V as needed for painJanuary 19, 2024 11:00pmOct2023 2:47pmApixaban (Eliquis) 5 mg estfauTqgjxd3BFWJKjfmr qfyyh35427Vtwjobg 23rd, 2024 11:00pmUnknownGabapentin 300 mg DqutoodEhaumn988KDGLXazne times zmnhp62512Vbnoswx 23rd, 2024 11:00pmUnknown Procedures Procedure Date Performed Status Blood Culture February 16, 2025 active Urine Culture February 16, 2025 active Blood Culture February 16, 2025 active Advance Directives Advance Directive Response Recorded Date/ Time Advance Directives No January 19, 2024 5:01pm Insurance Providers Guarantor Kristal Olivarez [facility] [address] [place] [id number] Info.Home Phone: Payer Group Member ID Coverage Type Subscriber Relationship to Subscriber Effective Date Expiration Date [employer] [place] HMO [id number] C [place] Id: [id number] [facility] [address] [facility] [address] Home Phone: self Encounters Encounter Location(s) Arrival/Admit Date Discharge/Departure Date Discharge/Departure Disposition Provider(s) Departed Referred -[facility] February 16, 2025 3:26am February 16, 2025 3:27am Discharged to home care or self care (routine discharge) Anastacio Huffman MD Departed Referred -[facility] February 16, 2025 11:14am February 16, 2025 11:15am Discharged to home care or self care (routine discharge) NON STAFF Departed Referred -[facility] February 16, 2025 11:20am February 16, 2025 11:21am Discharged to home care or self care (routine discharge) NON STAFF Plan of Treatment Future Tests Future scheduled test information is unavailable Pending Tests Pending diagnostic test information is unavailable Future Visits Future appointment information is unavailable Future Procedures Procedure Name Ordered Date Scheduled Date Blood Culture February 17, 2025 1:41pm 2024 11:14am Urine Culture February 16, 2025 2:08pm 2024 3:26am Blood Culture February 17, 2025 1:40pm 2024 11:20am Future Medications Future medication information is unavailable Patient Instructions Patient instructions are unavailable
--- OUTSIDE RECORDS SUMMARY | 2025-02-19 18:54 | XMS_ITS | Clinical Summary ---
Author Organization [facility] Address [address] [place] [address] Phone Care Team Providers Care Slasher Hand Name Role Phone Unavailable Primary Care Provider Unavailabl e Social History Tobacco UseTypesPacks/DayYears UsedDateSmoking Tobacco: Never Assessed CommentsUnknownSex and Gender InformationValueDate RecordedSex Assigned at Not on fileLegal JmxXfwuaie05/21/2024 9:41 AM EDTGender IdentityNot on file Sexual OrientationNot on file Plan of Treatment Health MaintenanceDue DateLast DoneCommentsCT Tuttvfvkmdds57/01/1960Colonoscopy 1959Colorectal Cancer Weyzgwjzc26/01/1960FIT-DNA (Cologuard)1959FIT 1959Lipid Panel1959 2124Gwqqdetchyxoh66/01/1960Yearly Adult Physical 1959MMR Vaccines (1 of 1 - Standard series)08/30/1960Hepatitis C Screening 08/30/1977Cervical Cancer Ajfpzntqm88/01/1981HPV/Vfbhsz9808/30/1980Pap Smear 08/30/1980DTaP/Tdap/Td Vaccines (1 - Tdap)08/30/19816596Qpbqewsvi03/01/2000PSA Prostate Cancer Sszfyomxw38/01/2010Pneumococcal Vaccine (1 of 1 - PCV)08/30/2009 Zoster Vaccines (1 of 2)08/30/2009one Density Scan08/30/2024Influenza Vaccine (#1)2024OVID-19 Vaccine (1 - 2024- season)2024RSV High Risk: (Elderly (60+) or Population) (1 - 1-dose 75+ series)08/30/2034HIB VaccinesAged OutNo longer eligible based on patient's age to complete this topic HPV VaccinesAged OutNo longer eligible based on patient's age to complete this topicHepatitis A VaccinesAged OutNo longer eligible based on patient's age to complete this topicHepatitis B VaccinesAged OutNo longer eligible based on patient's age to complete this topicIPV VaccinesAged OutNo longer eligible based on patient's age to complete this topicMeningococcal VaccineAged OutNo longer eligible based on patient's age to complete this topicRotavirus VaccinesAged Out No longer eligible based on patient's age to complete this topic Insurance * Guarantor: Len Olivarez TypeRelation to PatientDate of BirthPhone Billing AddressPersonal/OoyuyhDogy40/01/1961 (Home) [address] [place] [address] * Guarantor: Len Olivarez TypeRelation to PatientDate of BirthPhone Billing AddressPersonal/WtkauqLrkp64/01/1961 (Home) [address] [place] [address]
--- OUTSIDE RECORDS SUMMARY | 2025-02-19 19:00 | XMS_ITS | CCD ---
Author Organization [facility] Care Team Providers Care Literary Writer Name Role Phone Zach Grimaldo Unavailable Unavailable Roberto Carlos, Luke Unavailable Unavailable Roberto Carlos, Luke Unavailable Unavailable Angelita, Vahid Unavailable Unavailable Angelita, Vahid Unavailable Unavailable Angelita, Vahid Unavailable Unavailable Angelita, Vahid Unavailable Unavailable Angelita, Vahid Unavailable Unavailable Angelita, Vahid Unavailable Unavailable Angelita, Vahid Unavailable Unavailable Angelita, Vahid Unavailable Unavailable Ender Amin Unavailable [phone] Natalia Amin Primary Care Physician [phone] Angelita, Vahid Unavailable Unavailable Angelita, Vahid Primary Care Provider Angelita, Vahid M Primary Care Provider [phone] DEION FRITZ Attending Unavailable Angelita, Vahid M Primary Care Provider Angelita, Vahid Primary Care Provider Angelita DOCUMENT CLERK - DISTRIBUTED GENERATION PROJECT MANAGER, Vahid M Primary Care Provider Unavailable Primary Care Provider Unavailabl e Angelita DOCUMENT CLERK - DISTRIBUTED GENERATION PROJECT MANAGER, Vahid M Primary Care Provider Angelita DISTRIBUTED GENERATION PROJECT MANAGER, Vahid Unavailable Osmar Rodriguez MD Primary Care Provider Angelita DISTRIBUTED GENERATION PROJECT MANAGER, Vahid Primary Care Provider Angelita DOCUMENT CLERK - DISTRIBUTED GENERATION PROJECT MANAGER, Vahid M Primary Care Provider Angelita DISTRIBUTED GENERATION PROJECT MANAGER, Vahid Primary Care Provider [phone] DR ERMA GUERRERO Primary Care Unavailable AILYN, DR GORDO Saeed Admitting Unavailable AILYN, DR GORDO Saeed Consulting Unavailable DR GORDO ROBERTSON Attending Unavailable WILY FAJARDO Consulting Unavailable NIA GALLEGOS Consulting Unavailable TAWANNA VICENTE Consulting Unavailable Eber Mcnair Consulting Unavailable Osmar Rodriguez MD Primary Care Provider [phone] Angelita [facility], Vahid Primary Care Provider [phone] ANGELITA, VAHID Primary Care Unavailable ANGELITA, VAHID [...] Unavailable Osmar Rodriguez MD Primary Care Provider [phone] Osmar Rodriguez MD Primary Care Provider BRIANAMatilde MARIEE Admitting Unavailable JOI JACOBSEN Referring [facility] Unavailable WINDY KUMARI Consulting Unavail able ABRAHAM BELTRAN Attending Unavailable DO Carlo Grimaldo Emergency Provider NON STAFF Primary Care Provider UnavailMD Nabila Cristobal Admit Provider MD Nabila Rao Attending Provider [phone] Asia Guzman Consulting Unavailable Nabila Rao Admitting Unavailable Luis Fernando Strauss Attending Unavailab le NON STAFF Primary Care Unavailable Americo Gomez Consulting Unavailable Michelle Joyce Consulting Unavailable Bjorn Ramsey Consulting Unavailable Artur Guo Consulting UnavailMD Luis Fernando Nolasco Attending Provider CASANDRA Guzman Other Provider Unavailable MD Americo Gomez Other Provider [phone] MARION Joyce Other Provider MD Bjorn Ramsey Other Provider MD Artur Guo Other Provider [phone] Osmar Rodriguez MD Primary Care Provider GERBER [...] of OnsetReaction(s) Facility (20 sources)azithromycin; Translations: [azithromycin]Drug Kcwmpxm55-86-9807 [facility] Repository (20 sources)cefaclor; Translations: [cefaclor]Drug Rnsxngd62-26-3675[facility]iyf[facility] (20 sources)codeine; Translations: [Codeine]Drug Agagutz91-54-8591Zfcuw (See Comments), [facility] ([facility] sources)cyclobenzaprine; Translations: [cyclobenzaprine]Drug Allergy 47-76-9849[facility]qn[facility] (20 sources)simvastatin; Translations: [simvastatin]Drug Pertwce43-12-5842 [facility] Repository (20 sources)-No Environmental Allergies; Translations: [-No Environmental Allergies]Allergy to substance (disorder)[facility] (13 sources)-No Known Food AllergiesAllergy to substance (disorder)[facility] (20 sources)Other; Translations: [Other]Allergy to substance (disorder)Lexiscan [facility] (20 sources)Metals; Translations: [Metals]Allergy to substance (disorder)Nickel [facility] comment on above:04/14/2015 - ar (20 sources)tiZANidine; Translations: [tizanidine][facility]Le[facility] (20 sources)Azithromycin; Translations: [azithromycin]Drug Vrnsazk12-37-6679 [facility] (20 sources)Cefaclor; Translations: [cefaclor]Drug Apvybez28-62-2751Kipct, Other (See Comments)[facility] (4 sources)cyclobenzaprine; Translations: [cyclobenzaprine]Drug Allergylegs Counts include 234 beds at the [facility] (20 sources)Simvastatin; Translations: [simvastatin]Drug Dzhgppd96-35-6082 Itching, Other (See Comments)[facility] (4 sources)tiZANidine; Translations: [tizanidine]Drug AllergyLegs [facility] (20 sources)Seasonal allergy; Translations: [Seasonal allergies]Allergy to gwiahatrc46-22-2961VtmjdlBer[facility] Center Work Phone: (20 sources)nickel sulfate; Translations: [Unknown]Drug Gvmqvby99-37-8857Omax, Other (See Comments)[place] (20 sources)regadenoson; Translations: [REGADENOSON]Drug Gcwgkel59-73-3556 Shortness [place], [place] (20 sources)cyclobenzaprineDrug Lsvyfsw71-30-7023Cqnfs (See Comments), Agitation [facility] (14 sources)Seasonal allergyPropensity to adverse reactions to substance 31-82-1020[facility] Work Phone: (16 sources)Trazodone And NefazodonePropensity to adverse reactions to drug 07-02-4545[facility]ic[facility] (2 sources)IodidesPropensity to adverse reactions to vmld01-44-2663NTR [facility] (1 source)CefaclorDrug Pjnhlwl34-41-0584Rkv [facility] Repository (1 source)Iodine (And Iodine Containting Drugs)Drug allergy (disorder)10-21-2019 [facility] Rep[facility] (1 source)SimvastatinDrug Jnhvrya05-36-5601Mjn [facility] Repository (8 sources)nickelDrug Sgnnwua27-04-6993[facility]awHlhgql [facility] (9 sources)levoFLOXacin; Translations: [LEVOFLOXACIN]Drug Hryjjyq38-03-9599 [facility] (3 sources)Environmental/SeasonalPropensity to adverse reactions to substance 57-60-4888Wnp [facility] Medications Current Medications MedicationDrug Class(es)DatesSig (Normalized)Sig (Original)*OXYGEN 1 Miscellaneous (20 sources)Start: 07-28-2018*OXYGEN 1 Miscellaneous 07/28/2018 Provider:*OXYGEN 1 Miscellaneous (1 source)Start: 07-28-2018*OXYGEN 1 Miscellaneous 07/28/2018 Provider: acetaminophen 325 mg oral tablet (13 sources)Start: 89-03-3491gwpu 1 tablet by mouth every four hours as needed for pain and fever and lawofzvk197 mg, oral, Every 4 hours PRN, mild pain - pain scale 1-3, temperature greater than 38 C, headaches, Temperature greater than 38.3 C, Starting on Sat12/30/24 at 2153, [Warning: Total Acetaminophen not to exceed more than 4 grams (4000 mg) in 24 hours]Start: 52-42-6212vupcltsjjdwde (TYLENOL) tablet 650 mgStart: 38-42-5916yxwwnydiwzrnk (TYLENOL) tablet 650 mg Start: 07-21-2022 End: 71-61-4919ezaynbgrqmerb (TYLENOL) tablet 650 mgStart: 17-98-5220ocop 650 mg by mouth every four hours as needed for pain, then take 4000 mg by mouth every twenty-four hours as needed for rdot917 mg, Oral, EVERY 4 HOURS PRN, Pain Mild (1-3), Fever, Fever >100.5 F (38 C), Starting Sat03/18/20 at 1350 Maximum dose of acetaminophen is 4000 mg from all sources in 24 hours. Recovery(Cath)Start: 22-12-8914itonoccrqqjcl (TYLENOL) tablet 650 mgStart: 03-17-2020 End: 38-94-5749fecucthbddlmk (TYLENOL) tablet 1,000 mgStart: 07-18-2019 acetaminophen (TYLENOL) tablet 650 mgStart: 05-27-2019 End: 36-49-6030uhstcpufrpyjf (TYLENOL) tablet 1,000 mgStart: 04-22-2019 End: 17-21-3692jafptmmhlrxjl (TYLENOL) tablet 1,000 mgStart: 02-23-2019 End: 23-12-8916yaqppmmbptgbn (TYLENOL) tablet 1,000 mgtake 2 tablets by mouth every six hours as needed for feveracetaminophen (TYLENOL) 325 mg tablet Take 2 tablets (650 mg total) by mouth every 6 (six) hours asneeded for fever. Active acetaminophen 325 mg / oxyCODONE hydrochloride 5 mg oral tablet (20 sources)Opioid AgonistStart: 12-21-2024 End: 04-03-0006uwwm 1 tablet by mouth every six hours as needed for pain and pain and pain and painoxyCODONE-acetaminophen (Percocet) 5-325 MG tablet Indications: Pain Take 1 tablet by mouth every 6(six) hours if needed for severe pain or moderate pain 120 tablet 12/21/2024 01/20/2025 ActiveStart: 10-27-2024 End: 20-06-1384jxxOYYMXU-acetaminophen (PERCOCET) 7.5-325 MG per tablet Indications: Chronic [...] 120 tablet 10/27/2024 11/26/2024 ActiveStart: 09-02-2024 End: 10-99-1476praXFVDWK-acetaminophen (PERCOCET) 7.5-325 MG per tablet Indications: Chronic [...] all sources in 24 hours.Start: 08-12-2024 End: 98-30-1874hxzm 1 tablet by mouth every twenty-four hours1 tablet, Oral, Once, 1 dose, On 08/12/24 at 1145, Maximum dose of acetaminophen is 4000 mg fromall sources in 24 hours.Start: tablet, Oral, EVERY 4 HOURS PRN, Starting on Jenn 08/06/24 at 2019, Until Discontinued, Pain Severe (7-10), Maximum dose of acetaminophen is 4000 mg from all sources in 24 hours.Start: 07-27-2024 End: 23-75-6302nqrn 1 tablet by mouth every six hours [...] 12 tablet 08/17/2024 08/20/2024 ActiveStart: 01-20-2024 End: 24-60-6676qrzu 2 tablets by mouth every six hoursOxycodone-Acetaminophen Discontinued 2 TAB PO Q6H January 20, 2024 12:00am January 23, 2024 3:47pm Start: 83-43-9863vgjq 1 tablet by mouth every eight hoursOxycodone-Acetaminophen Active 1 TAB PO Every 8 hours January 19, 2024 12:00amStart: 07-10-2022 End: 04-99-1081yyxTZCPUT-acetaminophen (PERCOCET) 5-325 MG per tablet Indications: Chronic right hip pain , Sacralpain , Lumbar back pain with radiculopathy affecting right lower extremity , Chronic left hip pain Take 1 tablet by mouth every 6 hours as needed for Pain for up to 7 days. Ok to Fill today. PDMP reviewed. Max Daily Amount: 4 tablets 28 tablet 0 08/13/2022 08/20/2022 ActiveStart: 56-04-9293oqpc 1 tablet by mouth every eight hours for painoxyCODONE-acetaminophen 5-325 MG per tablet take 1 tablet by mouth every 8 hours if needed for painfor up to 30 DAYS 0 04/14/2022 ActiveStart: 12-18-2021 End: 07-52-8133mnxr 1 tablet by mouth every eight hours [...] tablet 0 12/18/2021 01/17/2022 ActiveStart: 06-20-2021 End: 25-16-6109ogcIGUVZX-acetaminophen (PERCOCET) 5-325 MG per tablet Indications: Chronic right hip pain , Lumbarback pain with radiculopathy affecting right lower extremity Take 1 tablet by mouth every 6 hours as needed for Pain for up to 7 days. Intended supply: 7 days. Take lowest dose possible to manage pain 28 tablet 0 06/20/2021 06/27/2021 ActiveStart: 04-06-2021 End: 28-78-5226ocmPVYVEZ-acetaminophen (PERCOCET) 5-325 MG per tablet Indications: Chronic right hip pain , Fall, initial encounter , Right hip pain Take 1 tablet by mouth every 6 hours as needed for Pain for up to7 days. Intended supply: 7 days. Take lowest dose possible to manage pain 28 tablet 0 04/06/2021 04/13/2021 ActiveStart: 95-25-0409swgLUWFAE-acetaminophen (PERCOCET) 5-325 MG per tablet 1 tabletStart: 01-12-2021 End: 75-73-4780ajkINGVBM-acetaminophen (PERCOCET) 5-325 MG per tablet Indications: Multiple contusions Take 1 tablet by mouth every 6 hours as needed for Pain for up to 3 days. Intended supply: 3 days. Take lowest dose possible to manage pain 12 tablet 0 01/12/2021 01/15/2021 ActiveStart: 12-04-2020 End: 14-08-0943xcsOBIMNP-acetaminophen (PERCOCET) 5-325 MG per tablet Indications: Pelvic pain Take 1 tablet by mouth every 6 hours as needed for Pain for up to 3 days. Intended supply: 3 days. Take lowest dose possible to manage pain 12 tablet 0 12/04/2020 12/07/2020 ActiveStart: 15-00-7456yfoKYODOM- acetaminophen (PERCOCET) tablet 5-325 mg (2 tablet STARTER PACK)Start: 04-05-2020 End: 33-46-5386wlqq 1 tablet by mouth every six hours [...] tablet 0 04/05/2020 04/08/2020 ActiveStart: 03-21-2020 End: 00-82-7859jetXHYNNA-acetaminophen (PERCOCET) 5-325 MG per tablet 1 tablet Start: 02-12-2020 End: 94-30-5248cqcc 1 tablet by mouth every four hours [...] tablet 0 02/12/2020 02/15/2020 ActiveStart: 10-06-2019 End: 57-05-1443deef 1 tablet by mouth every six hours as needed for pain oxyCODONE-acetaminophen (PERCOCET) 5-325 MG per tablet Indications: Chronic bilateral low back painwith bilateral sciatica Take 1 tablet by mouth every 6 hours as needed for Pain for up to 3 days. 10 tablet 0 10/06/2019 10/09/2019 ActiveStart: 10-06-2019 End: 15-39-9234bixBSEPMD-acetaminophen (PERCOCET) 5-325 MG per tablet 1 tablet Start: 07-30-2019 End: 67-59-6124Ppshqquc 5-325 MG Oral Tablet 09/09/2019 - 09/15/2019 Provider: Vahid Nagy CNPStart: 02-19-2019 End: 60-51-1901djzLLPRLI-Acetaminophen 5-325 MG Oral Tablet 02/19/2019 - 03/12/2019 Provider: Vahid Nagy CNPStart: 01-13-2019 End: 82-93-6107bkxSSLIMH-acetaminophen (PERCOCET) 5-325 MG per tablet 1 tablet Start: 72-07-3100hgwMESHMP-Acetaminophen 7.5-325MG Oral Tablet 06/27/2018 Provider: Vahid Nagy CNPStart: 04-29-2018 End: 00-76-6183vpuHNWBYW-Acetaminophen 7.5-325MG Oral Tablet 05/30/2018 - 06/27/2018 Provider: Vahid Nagy CNPStart: 04-26-2018 End: 35-96-9730zbcGOHZRK-Acetaminophen 7.5-325 MG OR TABS 04/26/2018 - 04/26/2018 Provider: Parker ProviderStart: 02-46-7198kfwh 1 tablet by mouth every eight hours as needed for painoxycodone-acetaminophen 7.5-325 mg oral tablet 03/26/2018 take 1 tablet (7.5/325mg) by mouth every 8 hours as needed for severe chronic lumbar pain (M79.606/M54.16)Start: 03-26-2018 End: 13-67-9079bgyZLCOGS-Acetaminophen 7.5-325 MG OR TABS 03/26/2018 - 03/26/2018 Provider:Start: 02-24-2018 End: 05-81-9894imiBGLTYG-Acetaminophen 7.5-325 MG OR TABS 02/24/2018 - 02/24/2018 Provider:Start: 32-79-6375bqhz 1 tablet by mouth every eight hours as needed for painoxycodone-acetaminophen 7.5-325 mg oral tablet 02/24/2018 take 1 tablet (7.5/325mg) by mouth every 8 hours as needed for severe chronic lumbar pain (M79.606/M54.16)Start: 01-20-2018 End: 69-65-9010sblMLCHLF-Acetaminophen 7.5-325 MG OR TABS 01/20/2018 - 01/20/2018 Provider:Start: 12-27-2017 End: 87-00-0179nzbDXFZDU-Acetaminophen 5-325 MG OR TABS 12/27/2017 - 12/27/2017 Provider:Start: 88-34-3799uhoz 1 tablet by mouth every eight hours as needed for painoxycodone-acetaminophen 5-325 mg oral tablet 12/27/2017 take 1 tablet by oral route every 8 hours asneeded for modertae to severe back pain for 30 day supply (dx M79.606, M54.16)Start: 11-26-2017 End: 87-55-9779uivUPRVFX-Acetaminophen 5-325 MG OR TABS 11/26/2017 - 11/26/2017 Provider:Start: 00-87-1352edxw 1 tablet by mouth every eight hours as needed for painoxycodone-acetaminophen 5-325 mg oral tablet 11/26/2017 take 1 tablet by oral route every 8 hours asneeded for modertae to severe back pain for 30 day supply (dx M79.606, M54.16)Start: 11-04-2017 End: 09-72-3603gcgQHKWOL-Acetaminophen 5-325 MG OR TABS 11/04/2017 - 11/04/2017 Provider:Start: 10-22-2017 End: 63-60-0239uvhIZBTQM-Acetaminophen 5-325 MG OR TABS 10/22/2017 - 10/22/2017 Provider:Start: 86-81-2980gckp 1 tablet by mouth every eight hours as needed for painoxycodone-acetaminophen 5-325 mg oral tablet 10/22/2017 take 1 tablet by oral route every 8 hours asneeded for modertae to severe back pain (dx M79.606, M54.16)Start: 04-14-2015 End: 96-07-2181citQHJFEQ-Acetaminophen 7.5-325 MG OR TABS 04/14/2015 - 04/14/2015 Provider:Start: 04-14-2015 End: 61-06-6689pwvk 1 tablet by mouth every eight hours as neededoxycodone- acetaminophen 7.5-325 mg oral tablet 04/14/2015 12/14/2016 take 1 tablet by oral route every 8 hours as neededStart: 03-11-2015 End: 06-29-3268vmeTLEXAU-Acetaminophen 7.5-325 MG OR TABS 03/11/2015 - 03/11/2015 Provider:Start: 02-10-2015 End: 34-43-2875bgvSTOVMS-Acetaminophen 7.5-325 MG OR TABS 02/10/2015 - 02/10/2015 Provider: End: 99-03-0019pxkx 1 tablet by mouth every six hours [...] INPATIENT/ED BronchodilatorClinical Practice Guidelines? YesStart: 08-06-2024 End: 69-58-9011plfy 1 dose by inhalation four times daily1 Dose, Inhalation, 4 TIMES DAILY RESP, First dose on Jenn 08/06/24 at 1600, Until Discontinued, Initiate RT Bronchodilator Protocol: Yes - Inpatient ProtocolStart: 10-23-2022 ipratropium-albuteroL (DUONEB) 0.5 mg-3 mg(2.5 mg base)/3 mL nebulizer Indications: COPD exacerbation ([facility]) Inhale 3 mL by nebulization 3 (three) times a day as needed for wheezing or shortness of breath. 3 mL nebulization every 8 hours x7 days, then every 8 hours as needed for cough, shortnessof breath, and or wheezing 240 mL 2 10/23/2022 ActiveStart: 26-45-0291delzruypaga- albuterol (DUONEB) nebulizer solution 1 ampuleStart: 10-06-2019 End: 02-68-3567wgfavyzvawv-albuterol (DUONEB) nebulizer solution 1 ampuleStart: 07-18-2019 End: 92-92-8791dugnxamawgg-albuterol (DUONEB) nebulizer solution 1 ampuleStart: 04-21-2019 End: 85-93-1781tldelvgeirj-albuterol (DUONEB) nebulizer solution 1 ampule albuterol sulfate HFA 108 (90 Base) MCG/ACT inhaler 2 puff (1 source)Start: 90-66-4035tjluxxtol sulfate HFA 108 (90 Base) MCG/ACT inhaler 2 puff1 ml alirocumab 75 mg/ml auto-injector (12 sources)PCSK9 InhibitorStart: 23-56-1431fpzuilcjsw (PRALUENT) 75 MG/ML SOAJ injection pen Indications: Abnormal stress test , CAD S/P percutaneous coronary angioplasty , Essential hypertension , Mixed hyperlipidemia , Tobacco abuse counseling , PVD (peripheral vascular disease) ([facility]) , Bilateral carotid artery disease, unspecified type ([facility]) Inject 1 mL into the skin every 14 days 1.96 mL 3 02/01/2020 Activealuminum hydroxide 40 mg/ml / magnesium hydroxide 40 mg/ml / simethicone 4 mg/ml oral suspension (1 source)Start: 69-30-7551qgdl 30 mL by mouth four times daily at bedtime as hdpgyx51 mL, oral, 4 times daily after meals and at bedtime as needed, dyspepsia, Starting on Sat12/30/24at 2153, Look-alike/sound-alike medication - verify indication for use. Shake well., Indications: dyspepsiaamino acids- protein hydrolys 17-100 gram-kcal/30 mL liquid (2 sources)take 30 mL by mouth in the morningamino acids-protein hydrolys 17-100 gram-kcal/30 mL liquid Take 30 mL by mouth in the morning. Pro-stat oral lqiuid ( amino vghwi-kfgokfa-sxxhbftmtqc) -give 30 ml po in the morning for wound care. Activetake 30 mL by mouth in the morningamino acids-protein hydrolys 17-100 gram-kcal/30 mL liquid Take 30 mL by mouth in the morning. Pro-stat oral lqiuid ( amino olmaq-lfwjoyw-pohabkeoypd) -give 30 ml po in the morning for wound care. amitriptyline hydrochloride 10 mg oral tablet (1 source)Tricyclic AntidepressantStart: 51-93-3988wmar 1 tablet by mouth once dailyamitriptyline (ELAVIL) 10 MG tablet Indications: Chronic right hip pain , Chronic left hip pain , Chronic pain syndrome , Chronic diastolic congestive heart failure (HCC) Take 1 tablet by mouth nightly 90 tablet 11/16/2024 Active amLODIPine 10 mg oral tablet (20 sources)Dihydropyridine Calcium Channel BlockerStart: 25-50-4568grei 10 mg by mouth once daily for pcjabehrnzvm39 mg, oral, Daily, First dose on [facility] 12/31/24 at 0900, Look-alike/sound-alike medication - verify indication for use. Avoid grapefruit juice., Indications: hypertensionStart: 67-74-4446zrLLFZTvhh (NORVASC) 5 MG tablet 08/19/2024 ActiveStart: 88-30-8044xygo 1 tablet by mouth once dailyamLODIPine (NORVASC) 10 MG tablet Indications: Primary hypertension Take 1 tablet by mouth daily 90tablet 1 06/24/2024 ActiveStart: 48-03-3792bqhj 1 tablet by mouth once dailyamLODIPine (NORVASC) 10 MG tablet Indications: Primary hypertension Take 1 tablet by mouth daily 90tablet 3 01/28/2023 ActiveStart: 81-09-3948imhw 1 tablet by mouth once dailyamLODIPine (NORVASC) 10 MG tablet Indications: Primary hypertension take 1 tablet by mouth once daily 90 tablet 0 07/26/2022 ActiveStart: 14-15-5990jnbt 1 tablet by mouth once dailyamLODIPine (NORVASC) 10 MG tablet Indications: Primary hypertension take 1 tablet by mouth once daily 90 tablet 0 05/04/2022 ActiveStart: 75-90-9625qbml 1 tablet by mouth once dailyamLODIPine (NORVASC) 10 MG tablet Take 1 tablet by mouth daily 30 tablet 0 12/26/2021 ActiveStart: 02-20-2021 End: 57-30-5928jvkx 1 tablet by mouth once dailyamLODIPine (NORVASC) 5 MG tablet Take 5 mg by mouth daily 0 02/20/2021 06/22/2021 Discontinued (LIST CLEANUP) Start: 07-26-2019 End: 76-84-8279pxwi 1 tablet by mouth once dailyamLODIPine (NORVASC) 10 MG tablet Take 1 tablet by mouth daily 30 tablet 3 07/26/2019 ActiveStart: 07-21-2019 End: 09-98-8279lrlq 1 tablet by mouth once dailyamLODIPine (NORVASC) 10 MG tablet Take 1 tablet by mouth daily 30 tablet 3 07/26/2019 03/17/2020 Dis continued (LIST CLEANUP)Start: 07-20-2019 End: 85-24-0557fxMZNSCiab (NORVASC) tablet 5 mgStart: 05-04-2019 End: 46-61-4797ioeg 1 tablet by mouth once dailyamLODIPine (NORVASC) 2.5 MG tablet Take 1 tablet by mouth daily 30 tablet 3 05/04/2019 07/25/2019 Di scontinued (Stop Taking at Discharge)amoxicillin 500 mg oral tablet (1 source)Penicillin-class AntibacterialStart: 97-68-5701Hlzyrfwglvh 500 MG Oral Tablet 03/03/2019 Provider: Elena Malik CNPamoxicillin 875 mg / clavulanate 125 mg oral tablet (20 sources)Penicillin-class AntibacterialStart: 08-10-2024 End: 66-01-0315tzmh 1 tablet by mouth twice daily1 tablet, Oral, 2 TIMES DAILY, 28 doses, First dose on Sat08/12/24 at 2100, Last dose on Sat08/26/24 at 0900, Antimicrobial Indications: Skin and Soft Tissue Infection, Skin duration of therapy: Other, Other Skin and Soft Tissue Infection Duration: 14Start: 50-20-5711Odysljwso 500-125 MG Oral Tablet 04/12/2020 Provider: Vahid Nagy CNP Start: 59-43-7920Rviusrrpg 500-125 MG Oral Tablet 04/12/2020 Provider: Vahid Nagy CNPStart: 09-09-2019 End: 39-40-0215Vvdqglcit 500-125 MG Oral Tablet 09/09/2019 - 09/23/2019 Provider: Vahid Nagy CNPStart: 48-56-8175Cxdmaipmj 500-125MG Oral Tablet 10/30/2018 Provider: Vahid Nagy CNPStart: 34-35-6945dfth 1 tablet by mouth every twelve hoursAugmentin 875-125 mg oral tablet 02/10/2018 take 1 tablet by oral route every 12 hours x 10 daysStart: 02-10-2018 End: 45-87-5823Sruhkbjkd 875-125 MG OR TABS 02/10/2018 - 02/10/2018 Provider: Start: 02-10-2018 End: 30-17-9439Ipfoeeeww 875-125MG OR TABS 02/10/2018 - 02/10/2018 Provider: apixaban 5 mg oral tablet (14 sources)Factor Xa InhibitorStart: 23-84-2518stfm 5 mg by mouth twice daily5 mg, oral, 2 times daily, First dose on Sat12/30/24 at 2215, Indication: Nonvalvular Atrial Fibrillation (NVAF)Start: 73-92-1303csaf 0.5 tablet by mouth twice dailyapixaban (ELIQUIS) 5 MG TABS tablet Take 0.5 tablets by mouth 2 times daily 90 tablet 1 09/02/2024 ActiveStart: 07-64-7280wqxm 5 mg by mouth once daily5 mg, Oral, DAILY, First dose on Sat08/13/24 at 2200, Until Discontinued, Indication of Use: A Fib/A Flutter, ANTICOAGULANTStart: 85-77-4250umvt 1 tablet by mouth twice dailyApixaban (Eliquis) 5 mg tablet Active 5 MG PO Twice daily 60 January 23, 2024 12:00amascorbic acid 500 mg chewable tablet (2 sources)Vitamin CStart: 62-11-0953zmqc 1 tablet by mouth twice dailyascorbic acid (VITAMIN C) 500 MG tablet Take 1 tablet by mouth 2 times daily 30 tablet 3 5ActiveStart: 28-46-9230gpqx 1 tablet by mouth twice dailyascorbic acid (VITAMIN C) 500 MG tablet Take 1 tablet by mouth 2 times daily for 7 days 14 tablet ActiveAspir-81 Oral Tablet Delayed Release (4 sources)Start: 31-42-8626Woald-81 Oral Tablet Delayed Release 04/29/2018 Provider:Aspir-81 Oral Tablet Delayed Release (1 source)Start: 76-60-0120Evjzc-81 Oral Tablet Delayed Release 04/29/2018 Provider:aspirin 81 mg chewable tablet (20 sources)Platelet Aggregation Inhibitor, Nonsteroidal Anti-inflammatory Drug Start: 47-71-3125Pagagff (Adult Low Dose Aspirin) 81 mg tablet,delayed release (DR/EC) Active 81 MG PO Daily 2023 12:00amStart: 50-09-3594vxkv 81 mg by mouth once daily81 mg, oral, Daily, First dose on Jenn 12/31/24 at 0900 Start: 80-14-1500vjxt 1 tablet by mouth once dailyaspirin EC 81 MG EC tablet Indications: Primary hypertension Take 1 tablet by mouth daily 30 tablet3 07/10/2022 ActiveStart: 73-97-4850vosrfvu 81 MG Chew Tab chewable tablet Chew 1 tablet daily. 0 06/22/2021 ActiveStart: 38-91-0408wztcgca chewable tablet 81 mg Start: 32-53-2957hctwflr chewable tablet 81 mgStart: 04-26-2018 End: 77-65-2786Ngdlbjz 81 81 MG OR TBEC 04/26/2018 - 04/26/2018 Provider: Parker ProviderStart: 02-24-2018 End: 10-32-4824ouhe 1 tablet by mouth once dailyaspirin EC 81 MG EC tablet Take 1 tablet by mouth daily 30 tablet 3 03/19/2020 ActiveAspirin Adult Low Dose 81 MG Oral Tablet Delayed Release (4 sources)Start: 03-21-2020 End: 38-77-5305Uruzrxe Adult Low Dose 81 MG Oral Tablet Delayed Release 03/21/2020 - 03/16/2021 Provider: Vahid Nagy CNPStart: 03-21-2020 End: 78-77-3098Ubfokwt Adult Low Dose 81 MG Oral Tablet Delayed Release 03/21/2020 - 04/12/2020 Provider:azelastine hydrochloride 0.137 mg/actuat / fluticasone propionate 0.05 mg/actuat metered dose nasalspray (1 source)Corticosteroid, Histamine-1 Receptor AntagonistStart: 08-13-2023 Azelastine-Fluticasone 137-50 MCG/ACT SUSP Indications: Allergic rhinitis, unspecified seasonality,unspecified trigger 1 each by Nasal route in the morning and at bedtime 23 g 08/13/2023 Activebenzonatate 100 mg oral capsule (20 sources)Non-narcotic AntitussiveStart: 81-03-3596Pnbuw: 78-62-8485gikx 200 mg by mouth three times mg, Oral, 3 TIMES DAILY, First dose on [facility] 08/13/24 at 0900, Until DiscontinuedStart: 73-45-0359Ohkwk: 04-06-2024 End: 63-76-1808vilmhrvnuur (TESSALON PERLES) 200 mg capsule Take 1 capsule (200 mg total) by mouth as needed in the morning and 1 capsule (200 mg total) as needed at noon and 1 capsule (200 mg total) as needed in the evening for cough. 04/06/2024 ActiveStart: 84-81-1663xnlh 1 capsule by mouth twice daily as needed for coughbenzonatate (TESSALON) 100 MG capsule Indications: Chronic obstructive pulmonary disease, unspecified COPD type (HCC) Take 1 capsule by mouth 2 times daily as needed for Cough 30 capsule 0 08/13/2022ctiveStart: 08-13-2022 End: 76-67-0842blzm 1 capsule by mouth three times daily as needed for cough benzonatate (TESSALON) 200 MG capsule Take 1 capsule by mouth 3 times daily as needed for Cough 30 capsule 0 08/13/2022 08/20/2022 ActiveStart: 07-45-5823zlur 1 capsule by mouth twice daily as needed for coughbenzonatate (TESSALON) 100 MG capsule Indications: Chronic obstructive pulmonary disease, unspecified COPD type (HCC) Take 1 capsule by mouth 2 times daily as needed for Cough 30 capsule 0 07/10/2022ctiveStart: 36-08-1932qvlftnfhcif (TESSALON) capsule 100 mgStart: 03-17-2021 End: 18-82-2777kvyfrnduxpo (TESSALON) capsule 200 mgStart: 01-19-2020 End: 78-68-2226Aymfiwkz Perles 100 MG Oral Capsule 02/16/2020 - 03/12/2020 Provider: Vahid Nagy CNPStart: 12-21-2019 End: 99-41-0216Zmkxnqjr Perles 100 MG Oral Capsule 12/21/2019 - 11/16/2019 Provider: Vahid Nagy CNPStart: 12-21-2019 End: 93-94-5342Siimiaxf Perles 100 MG Oral Capsule 12/21/2019 - 11/16/2019 Provider: Vahid Nagy CNPStart: 12-21-2019 End: 91-73-1018Ixtjtosh Perles 100 MG Oral Capsule 12/21/2019 - 11/16/2019 Provider: Vahid Nagy CNPStart: 12-21-2019 End: 82-46-2936Ombofsgv Perles 100 MG Oral Capsule 12/21/2019 - 11/16/2019 Provider: Vahid Nagy CNPStart: 14-36-0050Ikhjyfqq Perles 100 MG Oral Capsule 01/22/2019 Provider: Vahid Nagy CNPStart: 09-30-2018 End: 75-31-2471Aruodfqd Perles 100MG Oral Capsule 09/30/2018 - 12/11/2018 Provider: Vahid Nagy CNPStart: 07-28-2018 End: 30-12-2335Ogtsckgn Perles 100MG Oral Capsule 07/28/2018 - 08/27/2018 Provider: Vahid Nagy CNPStart: 28-66-3007ktpb 1 capsule by mouth three times dailyTessalon Perles 100 mg oral capsule 03/26/2018 take 1 capsule (100 mg) by oral route 3 times per day for up to 30 daysStart: 03-26-2018 End: 79-81-6956JGFOMOFG PERLES 100 mg MISC 03/26/2018 - 03/26/2018 Provider: Start: 01-27-2018 End: 66-30-6777SMVSQOJK PERLES 100 mg MISC 01/27/2018 - 01/27/2018 Provider: Start: 78-44-3918apie 1 capsule by mouth three times dailyTessalon Perles 100 mg oral capsule 01/27/2018 take 1 capsule (100 mg) by oral route 3 times per day for up to 30 daysStart: 98-76-5036yeiv 1 capsule by mouth three times daily Tessalon Perles 100 mg oral capsule 12/23/2017 take 1 capsule (100 mg) by oral route 3 times per dayx 14 daysStart: 12-23-2017 End: 60-65-8683WNVZKZYK PERLES 100 mg MISC 12/23/2017 - 12/23/2017 Provider: Blood Glucose Monitoring Suppl w/Device KIT (7 sources)Start: 03-39-3165Togto Glucose Monitoring Suppl w/Device KIT Indications: Type 2 diabetes mellitus with other specified complication, without long-term current use of insulin (HCC) 1 Device by Does not apply route Daily 1 kit 0 06/22/2021 ActiveBlood Pressure Kit (15 sources)Start: 12-06-4286Puhem Pressure Kit 07/30/2019 Provider: Vahid Nagy CNPBlood Pressure Kit (1 source)Start: 18-68-8571Vdzei Pressure Kit 07/30/2019 Provider: Vahid Nagy CNPBlood Pressure KIT (5 sources)Start: 30-21-8899Wcnfy Pressure KIT 1 kit by Does not apply route daily 1 kit 10/18/2023 ActiveBlood Pressure Monitoring MISC (20 sources)Start: 68-11-3891Izwve Pressure Monitoring MISC Indications: Atherosclerosis of artery of extremity with intermittent claudication (HCC) To monitor blood pressure as needed. Please order device that is covered by insu albert. 1 kit 0 07/25/2019 SuspendedStart: 23-69-2799Yunex Pressure Monitoring [facility] Indications: Atherosclerosis of artery of extremity with intermittent claudication (HCC) To monitor blood pressure as needed. Please order device that is covered by insurance. 1 kit 0 07/25/2019 ActiveStart: 06-28-2014 End: 87-40-0862Nztzn Pressure Monitoring [facility] Indications: Atherosclerosis of artery of extremity with intermittent claudication (HCC) To monitor blood pressure as needed. Please order device that is covered by insurance. 1 kit 0 06/28/2014 07/25/2019 Discontinued (REORDER)Start: 92-48-7039Vhmtt Pressure Monitoring [facility] Indications: Atherosclerosis of artery of extremity with intermittent claudication (HCC) To monitor blood pressure as needed. Please order device that is covered by insurance. 1 kit 0 06/28/2014 Hmmimk450 actuat budesonide 0.18 mg/actuat dry powder inhaler (6 sources)CorticosteroidStart: 95-67-8350dnty 2 puff(s) by inhalation in the morningbudesonide (PULMICORT FLEXHALER) 180 MCG/ACT AEPB inhaler Indications: Chronic obstructive pulmonary disease, unspecified COPD type (HCC) Inhale 2 puffs into the lungs in the morning and 2 puffs in the evening. 1 each 5 12/22/2021 ActiveStart: 05-10-2021 End: 87-04-7175xlhx 2 puff(s) by inhalation twice dailybudesonide (PULMICORT FLEXHALER) 180 MCG/ACT AEPB inhaler Inhale 2 puffs into the lungs 2 times daily 1 each 2 05/10/2021 06/22/2021 Discontinued (LIST CLEANUP)Start: 03-74-6882221 mcg (0.25 mg), Nebulization, 2 TIMES DAILY, First dose on [facility] 03/17/20 at 2100 Substituted for Beclomethasone (QVAR).Calcium (12 sources)Phosphate Binder, CalciumStart: 32-11-0122Cfhodou 600MG Oral Tablet 04/29/2018 Provider:Start: 08-16-2017 End: 78-00-8775UDJBKNZ 600 600 mg calcium(1,500 MG) MISC 08/16/2017 - 08/16/2017 Provider:carisoprodol 350 mg oral tablet (20 sources)Muscle RelaxantStart: 04-29-2018 End: 94-05-1591Ghoaizhdnspj 350MG Oral Tablet 05/27/2018 Provider: Vahid Nagy CNPStart: 12-12-2017 End: 93-06-0385Uxwxmuxjinek 350MG OR TABS 12/12/2017 - 12/12/2017 Provider: Start: 12-09-2017 End: 46-35-3947Wgdznamrgjmq 250 MG OR TABS 12/09/2017 - 12/09/2017 Provider: carvedilol 12.5 mg oral tablet (10 sources)alpha-Adrenergic Bella, beta-Adrenergic BlockerStart: 02-06-2024 take 12.5 mg by mouth twice daily at yshrqond67.5 mg, oral, 2 times daily with meals, [...] ActivecefTRIAXone 1000 mg injection (2 sources)Cephalosporin AntibacterialStart: 72-44-8960rolc 1000 mg intravenously every twenty-four hours1,000 mg, [...] oral tablet (3 sources)Cephalosporin AntibacterialStart: 01-01-2025 End: 18-79-8392uxgg 2 tablets by mouth in the morning, then take 2 tablets by mouth at bedtimeceFUROxime (CEFTIN) 250 mg tablet Take 2 tablets (500 mg total) by mouth in the morning and 2 tablets (500 mg total) before bedtime. Do all this for 3 days. 01/01/2025 01/04/2025 ActiveStart: 07-16-2024 End: 07-39-3163ivdj 1 tablet by mouth in the morning, then take 1 tablet by mouth at bedtimeceFUROxime (CEFTIN) 500 mg tablet Take 1 tablet (500 mg total) by mouth in the morning and 1 tablet(500 mg total) before bedtime. Do all this for 7 days. 14 tablet 07/16/2024 07/23/2024 Bdhmyg23 hr chlorpheniramine polistirex 1.6 mg/ml / HYDROcodone polistirex 2 mg/ml extended release suspen ryan (3 sources)Histamine-1 Receptor Antagonist, Opioid AgonistStart: 03-13-2020 End: 14-78-3172kghu 5 mL by mouth every twelve hours as needed for cough HYDROcodone-chlorpheniramine (TUSSIONEX PENNKINETIC ER) 10-8 MG/5ML SUER Indications: Bronchitis Take 5 mLs by mouth every 12 hours as needed (cough) for up to 3 days. 30 mL 0 03/13/2020 03/16/2020 ActiveStart: 03-13-2020 End: 02-78-0851IYQWFyomofn-chlorpheniramine (TUSSIONEX) 10-8 MG/5ML oral suspension 5 mLStart: 04-21-2019 End: 42-64-1491otlglklpiga-chlorpheniramine (TUSSIONEX) 10-8 MG/5ML oral suspension 5 mLcholecalciferol 0.025 mg oral tablet (20 sources)Vitamin DStart: 52,000 Units, oral, Daily, First dose on [facility] 12/31/24 at 1515, 1000 units = 25 mcgStart: 04-29-2018 End: 38-59-3189Rcacaia D3 400UNIT Oral Tablet 04/29/2018 - 04/12/2020 Provider: Start: 28-33-3273Skgswaq D3 400UNIT Oral Tablet 04/29/2018 Provider:Start: 61-29-2550ewjf 1 capsule by mouth twice dailyVitamin D3 400 unit oral capsule 08/16/2017 take 1 capsule by oral route twice dailycholecalciferol, vitamin D3, 2,000 units tablet Take by mouth in the morning. Activecromolyn sodium 40 mg/ml ophthalmic solution (4 sources)Mast Cell StabilizerStart: 94-77-8806Ckhkaqfu Sodium 4% Ophthalmic Solution 07/28/2018 Provider: Vahid Nagy CNPdextromethorphan hydrobromide 1 mg/ml / guaiFENesin 20 mg/ml oral solution (2 sources)Uncompetitive P-qthdlk-V-aspartate Receptor Antagonist, Sigma-1 AgonistStart: 11-04-2023 End: 10-93-5016Smxejxrvbaytjmjh-guaiFENesin (ROBITUSSIN DM) 5-100 MG/5ML LIQD liquid Take 5 mLs by mouth every 4 hours as needed for Cough 120 mL 11/04/2023 11/14/2023 ActiveStart: 91-44-7160xpetHTYrfug-dextromethorphan (ROBITUSSIN DM) 100-10 MG/5ML syrup 5 mLdiphenhydrAMINE hydrochloride 25 mg oral capsule (2 sources)Histamine-1 Receptor AntagonistStart: 14-79-3447gakv 1 capsule by mouth every six hours as neededdiphenhydrAMINE (BENADRYL) 25 mg capsule Take 1 capsule (25 mg total) by mouth every 6 (six) hours as needed for itching. 30 capsule 12/11/2024 Activedocusate sodium 100 mg oral capsule (11 sources)Start: 02-06-2024 End: 56-60-0140qjiltpxs sodium (COLACE) 100 mg capsule Take 1 capsule (100 mg total) by mouth as needed in the morning and 1 capsule (100 mg total) as needed in the evening for constipation. 02/06/2024 Activedocusate sodium 50 mg / sennosides, alf 8.6 mg oral tablet (1 source)Start: 00-29-9655kevl 1 tablet by mouth every twelve hours as needed for constipation1 tablet, oral, Every 12 hours PRN, constipation, Starting on Sat12/30/24 at 2153doxycycline hyclate 100 mg oral capsule (6 sources)Tetracycline-class DrugStart: 12-30-2024 End: 22-60-1350xkno 1 capsule by mouth in the morning, then take 1 capsule by mouth at bedtimedoxycycline (VIBRAMYCIN) 100 mg capsule Take 1 capsule (100 mg total) by mouth in the morning and 1capsule (100 mg total) before bedtime. Do all this for 3 days. 01/01/2025 01/04/2025 ActiveStart: 07-16-2024 End: 81-34-6076kxgl 1 tablet by mouth in the morning, then take 1 tablet by mouth at bedtimedoxycycline (VIBRA-TABS) 100 mg tablet Take 1 tablet (100 mg total) by mouth in the morning and 1 tablet (100 mg total) before bedtime. Do all this for 7 days. 14 tablet 07/16/2024 07/23/2024 ActiveStart: 08-07-2022 End: 05-20-7763etod 1 tablet by mouth twice dailydoxycycline hyclate (VIBRA- TABS) 100 MG tablet Indications: Bronchitis , Hypoxia Take 1 tablet by mouth 2 times daily for 10 days 20 tablet 0 08/07/2022 08/17/2022 ActiveStart: 03-19-2021 End: 60-49-4735vpft 1 tablet by mouth twice dailydoxycycline hyclate (VIBRA- TABS) 100 MG tablet Take 1 tablet by mouth 2 times daily for 10 days 20 tablet 0 03/19/2021 03/29/2021 ActiveElastic Bandages & Supports (JOBST KNEE HIGH COMPRESSION SM) MISC (3 sources)Start: 57-52-3628Gyznqdx Bandages & Supports (JOBST KNEE HIGH COMPRESSION ) [facility] Indications: Leg edema 1 eachby Does not apply route daily as needed (Leg swelling) 2 each 0 03/23/2021 Activeempagliflozin 10 mg oral tablet (3 sources)Sodium-Glucose Cotransporter 2 InhibitorStart: 13-61-1550svrb 1 tablet by mouth once dailyempagliflozin (JARDIANCE) 10 MG tablet Take 1 tablet by mouth daily 08/18/2024 ActiveStart: 84-50-6004sfsq 1 tablet by mouth once dailyempagliflozin (JARDIANCE) 10 MG tablet Take 1 tablet by mouth daily 08/18/2024 ActiveStart: 80-86-973218 mg, Oral, DAILY, First dose on 08/15/24 at 0900, Until Discontinued, Indication of Use: Type 2 diabetes, Heart Failure (preserved EF), Substituted for dapagliflozin (FARXIGA). Note: Discontinuation of therapy 3 days prior to surgery or major procedures is recommended given the risk for euglycemic diabetic ketoacidosis.0.3 ml enoxaparin sodium 100 mg/ml prefilled syringe (4 sources)Low Molecular Weight HeparinStart: 59-46-6283smydgeknft (LOVENOX) injection 30 mgStart: 64-80-7766oikldgdvxo (LOVENOX) injection 40 mgStart: 88-28-9331tpzpfi 40 mg by subcutaneous injection once daily40 mg, Subcutaneous, DAILY, First dose on 07/18/19 at 0900Start: 54-04-7017qhtxpq 40 mg by subcutaneous injection once daily40 mg, Subcutaneous, DAILY, First dose on 04/22/19 at 0900ergocalciferol 1.25 mg oral capsule (7 sources)Provitamin D2 CompoundStart: 73-62-6493mrnc 1 capsule by mouth every weekErgocalciferol (VITAMIN D) 51648 units CAPS Take 50,000 Units by mouth once a week 5 capsule 3 10/31/2024 ActiveStart: 10-22-2022 End: 45-73-6211xntu 90252 [IU] by mouth every week50,000 Units, Oral, WEEKLY, First dose on 08/16/24 at 1700, Until DiscontinuedStart: 08-48-7927ljwb 1 capsule by mouth every weekvitamin D (ERGOCALCIFEROL) 1.25 MG (67603 UT) CAPS capsule Take 1 capsule by mouth once a week 12 capsule 0 07/30/2022 Active escitalopram 10 mg oral tablet (8 sources)Serotonin Reuptake InhibitorStart: 08-07-2022 End: 27-33-1575phcg 1 tablet by mouth once dailyescitalopram (LEXAPRO) 10 MG tablet Indications: Depression, unspecified depression type Take 1 tablet by mouth daily 30 tablet 0 08/07/2022 ActiveStart: 13-12-6044mbza 1 tablet by mouth once dailyescitalopram (LEXAPRO) 5 MG tablet Indications: Depression, unspecified depression type take 1 tablet by mouth once daily 90 tablet 0 05/28/2022 Activeferrous sulfate 325 mg oral tablet (8 sources)Start: 58-46-2380vitd 325 mg by mouth once jvror672 mg, oral, Daily, First dose on Sat12/31/24 at 1515, Give ferrous sulfate 2 hours before or 4 gracie rs after antacids.Start: 74-35-2401marc 1 tablet by mouth once daily at breakfastferrous sulfate (IRON 325) 325 (65 Fe) MG tablet Take 1 tablet by mouth daily (with breakfast) 08/18/2024 ActiveStart: 09-44-3396kiam 1 tablet by mouth once daily at breakfastferrous sulfate (IRON 325) 325 (65 Fe) MG tablet Take 1 tablet by mouth daily (with breakfast) 08/18/2024 ActiveStart: 79-66-4793clyg 1 dose by mouth every four qdioq997 mg, Oral, DAILY WITH BREAKFAST, First dose on 08/16/24 at 1200, Until Discontinued, Separateiron & levothyroxine by 4 hours Start: 05-28-1190omuz 1 tablet by mouth once daily at breakfastFEROSUL 325 (65 Fe) MG tablet Indications: Anemia, unspecified type Take 1 tablet by mouth daily (with breakfast) 90 tablet 1 04/12/2023 Activefluconazole 150 mg oral tablet (20 sources)Azole AntifungalStart: 64-26-0407Uopicure 150 MG Oral Tablet 04/12/2020 Provider: Vahid Nagy CNPStart: 23-50-5086Gxjfknyx 150 MG Oral Tablet 04/12/2020 Provider: Vahid Nagy CNPStart: 09-09-2019 End: 59-49-9638Srwnpfny 150 MG Oral Tablet 09/09/2019 - 09/24/2019 Provider: Vahid Nagy CNPStart: 07-18-2019 End: 65-63-1888hhbqxflqpdk (DIFLUCAN) 40 MG/ML suspension 200 mgStart: 11-26-2017 End: 61-86-2602Fnmzfqqk 150 MG OR TABS 11/26/2017 - 11/26/2017 Provider:Start: 64-62-8735axzg 1 tablet by mouth onceDiflucan 150 mg oral tablet 11/26/2017 take 1 tablet (150 mg) by oral route once for symptoms of yeast infection while on actuat fluticasone propionate 0.044 mg/actuat metered dose inhaler (20 sources)CorticosteroidStart: 83-36-0176eegg 2 puff(s) by inhalation twice dailyFLOVENT HFA 44 MCG/ACT inhaler Inhale 2 puffs into the lungs 2 times daily 1 each 5 12/18/2022 ActiveStart: 05-08-0231vqel 1 puff(s) by inhalation once dailyfluticasone (ARNUITY ELLIPTA) 100 MCG/ACT AEPB Inhale 1 puff into the lungs daily 30 each 3 11/30/2021 ActiveStart: 48-04-1149Uiooelj Allergy Relief 50 MCG/ACT Nasal Suspension 08/04/2019 [...] dry powder inhaler (1 source)Corticosteroid, beta2-Adrenergic AgonistStart: 53-44-5442tvgv 1 puff(s) by inhalation once daily1 puff, inhalation, Daily, First dose on Sat12/31/24 at 1941oocmpmlxdka-ziuopttkk-iaraig (TRELEGY ELLIPTA) 200-62.5-25 MCG/ACT AEPB inhaler (1 source)Start: 48-69-4537hlgs 1 puff(s) by inhalation once daily olotyrguajw-daltqpbjr-rwacva (TRELEGY ELLIPTA) 200-62.5-25 MCG/ACT AEPB inhaler Indications: Chronic obstructive pulmonary disease, unspecified COPD type (HCC) Inhale 1 puff into the lungs daily 1 each 4 09/13/2023 Pkpglw174 actuat formoterol fumarate 0.0048 mg/actuat / glycopyrrolate 0.009 mg/actuat metered dose inhaler (20 sources)beta2-Adrenergic AgonistStart: 05-04-2019 End: 16-10-9303qluhcqndlxjjfb-formoterol (BEVESPI AEROSPHERE) 9-4.8 MCG/ACT AERO Indications: Chronic obstructive pulmonary disease, unspecified COPD type (HCC) Inhale 2 puffs into the lungs 2 times daily 1 Jwukjrs70 07/25/2019 Active gabapentin 400 mg oral capsule (20 sources)Anti-epileptic AgentStart: 70-26-8406trob 800 mg by mouth three times xanjn265 mg, oral, 3 times daily, First dose on Sat12/30/24 at 2215, Look-alike/sound-alike medication -verify indication for use.Start: 09-03-2024 End: 01-37-8547tdpz 1 tablet by mouth three times dailygabapentin (NEURONTIN) 800 MG tablet Indications: Chronic diastolic congestive heart failure (HCC) , COPD with acute exacerbation (HCC) Take 1 tablet by mouth 3 times daily for 90 days. 270 tablet 09/03/2024 12/02/2024 ActiveStart: 42-25-3674fkdc 600 mg by mouth three times dwtko525 mg, Oral, 3 TIMES DAILY, First dose (after last modification) on Sat08/13/24 at 1400, Until DiscontinuedStart: 08-12-2024 End: 80-55-8327hjns 800 mg by mouth three times okumr450 mg, Oral, 3 TIMES DAILY, First dose on Sat08/12/24 at 1545, Until DiscontinuedStart: 08-07-2024 take 600 mg by mouth three times mmwuf227 mg, Oral, 3 TIMES DAILY, First dose (after last modification) on Sat08/07/24 at 1400, Until DiscontinuedStart: 08-07-2024 End: 63-36-7759ujuk 300 mg by mouth three times mg, Oral, 3 TIMES DAILY, First dose (after last modification) on Sat08/07/24 at 0900, Until Disco ntinuedStart: 08-06-2024 End: 77-71-3404vjfn 800 mg by mouth three times kgqpo997 mg, Oral, 3 TIMES DAILY, First dose on Sat08/06/24 at 1515, Until DiscontinuedStart: 04-30-2024 End: 38-60-3529avnf 1 tablet by mouth three times dailygabapentin (NEURONTIN) 800 MG tablet Indications: Chronic diastolic congestive heart failure (HCC) , COPD with acute exacerbation (HCC) Take 1 tablet by mouth 3 times daily for 90 days. 270 tablet 04/30/2024 ActiveStart: 06-36-2550twkd 300 mg by mouth three times dailyGabapentin Active 300 MG PO Three times daily January 23, 2024 12:00amStart: 01-19-2024 End: 27-64-6304sfoe 800 mg by mouth four times dailyGabapentin Discontinued 800 MG PO Four times daily January 19, 2024 12:00am January 23, 2024 3:47pm Start: 10-21-2023 End: 08-38-7816pzoo 1 tablet by mouth once daily at bedtimegabapentin (NEURONTIN) 800 MG tablet Indications: Chronic right hip pain , Lumbar back pain with radiculopathy affecting right lower extremity , Chronic left hip pain , Chronic pain syndrome , Sacralpain take 1 tablet by mouth every morning , AT NOON , every evening and at bedtime 120 tablet 10/21/2023 11/21/2023 Active Start: 07-03-2022 End: 91-98-2294vabs 1 tablet by mouth three times dailygabapentin (NEURONTIN) 800 MG tablet Indications: Chronic left hip pain take 1 tablet by mouth three times a day 90 tablet 0 08/02/2022 09/01/2022 ActiveStart: 78-26-8019twuw 800 mg by mouth three times pomhi983 mg, Oral, 3 TIMES DAILY, First dose on Sat04/21/19 at 2300Start: 02-11-2019 End: 63-86-2495Dkagpqbjdk 600 MG Oral Tablet 07/09/2019 Provider: Vahid Nagy CNPStart: 06-27-2018 End: 14-76-3537Banulbbaig 600MG Oral Tablet 09/29/2018 - 01/22/2019 Provider: Vahid Nagy CNPStart: 04-26-2018 End: 42-55-3464Jojwnbhxou 600 MG OR TABS 04/26/2018 - 04/26/2018 Provider: Conversion ProviderStart: 04-03-2018 End: 98-16-5449Qmgxnzdijn 800MG OR TABS 04/03/2018 - 04/03/2018 Provider:Start: 08-09-2017 End: 29-42-3354Dbxwbugami 800MG OR TABS 08/09/2017 - 08/09/2017 Provider:Start: 01-15-2017 End: 26-27-2034Dlvfinkpea 800MG Oral Tablet 04/29/2018 - 06/27/2018 Provider: Start: 12-14-2016 End: 32-35-6010Fttqytsczk 600 MG OR TABS 12/14/2016 - 12/14/2016 Provider:Start: 04-14-2015 End: 59-79-6969Lxftygifqv 600 MG OR TABS 04/14/2015 - 04/14/2015 Provider: End: 15-72-0379bctrroexrf (NEURONTIN) 600 mg tablet Take 800 mg [...] 70 mg/dL after initial treatment, repeat treatment.Start: 92-63-7071yzyd 1 mL intravenous route every hour1 mg, Intramuscular, PRN, Low blood sugar, Blood glucose less than 70 mg/dL and patient NOT ALERT or NPO and does not have IV access., Starting Sat03/18/20 at 1350 After administration, attempt intravenous access and start D5W at 100 mL/hr. Repeat blood glucose in 15 minutes x2 and notify provider.Start: 86-68-7073vmuhsffp (rDNA) injection 1 mgStart: 04-24-2019 glucagon (rDNA) injection 1 mg150 ml glucose 50 mg/ml injection (13 sources)Start: g, oral, As needed, low blood sugar, blood glucose less than 70 mg/dL, Starting on Sat12/30/24 at 2153, If patient conscious and taking PO. If blood glucose is not greater than 70 mg/dL after initial treatment, repeat treatment.Start: 80-58-406861 mL, intravenous, As needed, low blood sugar, [...] VESICANT (RED) Warning: HYPERTONIC solution.Start: 12-30-2024 End: 76-92-5334mvgl 70 mg intravenously every zxsy330 mL/hr, intravenous, Continuous PRN, blood glucose less than 70 mg/dL, Starting on Sat12/30/24 at 2153, For 365 days, Use immediately following dextrose 50% or glucagon treatment for patients who are unconscious or NPO. Contact prescriber for additional orders. If blood glucose is not greater than 70 mg/dL after initial treatment, repeat treatment.Start: 07-19-2021 End: 03-85-1082batnmfay 50% injection 12.5 gStart: 61-76-164241 g, Oral, PRN, Low blood sugar, Starting [...] in 15 minutes x2 and notify provider.Start: 45-16-407582.5 g, Intravenous, PRN, Low blood sugar, Blood [...] using Glucostabilizer, dose as instructed per system.Start: 79-78-4510342 mL/hr, Intravenous, at 100 mL/hr, PRN, Low blood sugar, Starting Sat03/18/20 at 1350 Start infusion following administration of dextrose 50% or glucagon.Start: 30-16-1068vnpnuzry 5 % solutionStart: 16-55-8273yaulacx (GLUTOSE) 40 % oral gel 15 gStart: 07-18-2019 dextrose 50 % IV solutionStart: 21-05-5275gdapavs (GLUTOSE) 40 % oral gel 15 g Start: 34-78-6163ujxetyas 50 % IV solutionStart: 94-06-8094ngfufglx 5 % solution glucose monitoring (FREESTYLE FREEDOM) kit (10 sources)Start: 13-44-7662wuydoic monitoring (FREESTYLE FREEDOM) kit Indications: Type 2 diabetes mellitus with other specified complication, without long-term current use of insulin (HCC) 1 kit by Does not apply route daily 1 kit 0 03/23/2021 Oxofib06 hr guaiFENesin 600 mg extended release oral tablet (20 sources)Start: 01-01-2025 End: 30-51-6897vbod 1 tablet by mouth onceguaiFENesin (MUCINEX) 600 mg tablet extended release 12hr Take 1 tablet (600 mg total) by mouth every 12 (twelve) hours for 3 days. 01/01/2025 01/04/2025 ActiveStart: 41-46-4772hdbw 600 mg by mouth every twelve mg, oral, Every 12 hours scheduled, First dose on Sat12/30/24 at 2200, Look-alike/sound-alike medication - verify indication for use. Do not crush or chew.Start: 01-17-2024 End: 44-44-2115vreuEOBfqzr 1,200 mg tablet extended release 12hr Take 1,200 mg by mouth every 12 (twelve) hours. 30 each 01/17/2024 04/17/2024 Discontinued (Therapy completed)Start: 05-17-2021 End: 52-74-6808ptzb 1 tablet by mouth twice dailyguaiFENesin (MUCINEX) 600 MG extended release tablet Take 1 tablet by mouth 2 times daily 0 05/17/2021 06/22/2021 Discontinued (LIST CLEANUP)Start: 03-26-2018 End: 67-95-2126fdva 10 mL by mouth every four hours as neededguaifenesin 100 mg/5 mL oral liquid 03/26/2018 04/15/2018 take 10 milliliters (200 mg) by oral routeevery 4 hours as needed for 10 daysStart: 03-26-2018 End: 77-82-9647ZLNZPIFYNVB 100 MG/5 ML [facility] 03/26/2018 - 03/26/2018 Provider: Start: 03-26-2018 End: 19-38-5151DESTFEVPAJG 100MG/5 ML [facility] 03/26/2018 - 03/26/2018 Provider:1 ml hydrALAZINE hydrochloride 20 mg/ml injection (2 sources)Arteriolar VasodilatorStart: 61-53-452488 mg, Intravenous, EVERY 10 MIN PRN, High Blood Pressure, Starting Sat03/18/20 at 1350, For 2 doses For SBP greater than 150 mmHG Recovery(Cath)Start: 53-81-9056nhchKRCZVFB (APRESOLINE) injection 10 mgibuprofen 800 mg oral tablet (20 sources)Nonsteroidal Anti-inflammatory DrugStart: 10-12-2024 End: 14-61-9387vomo 1 tablet by mouth three times daily at mealtimeibuprofen (ADVIL;MOTRIN) 800 MG tablet Indications: Chronic right hip pain , Lumbar back pain with radiculopathy affecting right lower extremity , Chronic left hip pain , Chronic pain syndrome , Sacral pain Take 1 tablet by mouth 3 times daily (with meals) 90 tablet 11/19/2024 12/19/2024 ActiveStart: 01-19-2024 End: 08-23-1185qbuy 1 tablet by mouth three times dailyIbuprofen (Ibu) 800 mg tablet Discontinued 800 MG PO Three times daily January 19, 2024 12:00am Oc tober 2023 3:47pmStart: 12-78-0807wwsojssmi (ADVIL;MOTRIN) tablet 400 mg Start: 04-14-2019 End: 93-71-3716Gigraxtry 600 MG Oral Tablet 07/03/2019 Provider: Vahid Nagy CNPStart: 04-29-2018 End: 51-03-0960Znkvmovtc 800MG Oral Tablet 06/11/2018 Provider: Vahid Nagy CNP Start: 01-08-2018 End: 38-63-4627Lesjidrdq 800 MG OR TABS 01/08/2018 - 01/08/2018 Provider:Start: 22-11-4559rmup 1 tablet by mouth twice daily as needed for painibuprofen 800 mg oral tablet 10/10/2017 take 1 tablet (800 mg) by oral route BID prn for pain with foodStart: 10-10-2017 End: 04-62-4402Kkhytiujx 800 MG OR TABS 10/10/2017 - 10/10/2017 Provider:Start: 72-22-9762hfsf 1 tablet by mouth twice daily as needed for painibuprofen 800 mg oral tablet 05/15/2017 take 1 tablet (800 mg) by oral route BID prn for pain with foodStart: 05-15-2017 End: 77-26-9179Stmjymdjf 800 MG OR TABS 05/15/2017 - 05/15/2017 Provider:Start: 01-07-2017 End: 00-77-2319Frwspdbrp 800 MG OR TABS 01/07/2017 - 01/07/2017 Provider: Incontinence Supplies MISC (9 sources)Start: 87-10-7974Ymwkbldyyzwt Supplies MISC Indications: Urge incontinence of urine Use as directed for goansclcjqfo103 each 5 10/23/2022 ActiveStart: 35-00-3426Cevpnatojzae Supplies MISC Indications: Functional incontinence Use as directed for urinary incontinence. 150 each 1 03/13/2022 ActiveIncontinence Supply Disposable ([facility] INCONTINENCE PADS) MISC (4 sources)Start: 91-13-5560Wwlrakvpeapv Supply Disposable ([facility] INCONTINENCE PADS) MISC Indications: Urge incontinence of urine 1 each by Does not apply route 4 times daily as needed (incontinence) 90 each 1 09/21/2022 A ctiveStart: 40-74-3599Xbjpdzdnijqh Supply Disposable ([facility] INCONTINENCE PADS) MISC Indications: Urinary incontinence, unspecified type 1 each by Does not apply route 2 times daily 150 each 1 04/06/2021 ActiveIncontinence Supply Disposable MISC (20 sources)Start: 05-23-0833Ntcomkyoqjra Supply Disposable MISC Indications: Incontinence Incontinence pads 150 per month. Please order pad that is covered by insurance plan 150 each 3 07/25/2019 SuspendedStart: 70-64-0484Grxyfkvenysx Supply Disposable MISC Indications: Incontinence Incontinence pads 150 per month. Please order pad that is covered by insurance plan 150 each 3 07/25/2019 ActiveStart: 09-21-2014 End: 57-23-2863Ilxqomqlwhtm Supply Disposable MISC Indications: Incontinence Incontinence pads 150 per month. Please order pad that is covered by insurance plan 150 each 3 09/21/2014 07/25/2019 Discontinued (REORDER)Start: 09-21-2014 Incontinence Supply Disposable MISC Indications: Incontinence Incontinence pads 150 per month. Please order pad that is covered by insurance plan 150 each 3 09/21/2014 Active3 ml insulin lispro 100 unt/ml pen injector (12 sources)Insulin AnalogStart: 85-94-5200jdcymi 400 mg by subcutaneous injection three times [...] minutes before or immediately after a meal.Start: 74-56-6411dsvdek 400 mg by subcutaneous injection once daily, [...] Units Above 400 &nbsp ; 6 UnitsStart: 63-65-54504-12 Units, Subcutaneous, 3 TIMES DAILY WITH MEALS, First dose on Sat03/18/20 at 1700 Medium Dose Corrective Algorithm Glucose: Dose: If <139 &am p;nbsp; No Insulin 140- 199 2 Units 200-249 4 Units 250-299 6 Units 300-349 8 Units&a mp;nbsp;350-400 10 Units Above 400 12 UnitsStart: 07-18-2019 End: 34-15-9962kygsxpy lispro (HUMALOG) injection vial 0-6 UnitsStart: 89-97-8633tylsmwr lispro (HUMALOG) injection vial 0-3 Unitsiron sucrose (VENOFER) 200 mg in sodium chloride 0.9 % 100 mL IVPB (1 source)Start: 08-15-2024 End: 52-45-2305154 mg, IntraVENous, at 440 mL/hr, Administer over 15 Minutes, EVERY 24 HOURS, First dose on [facility] 08/15/24 at 1600, For 3 days, Observe for signs and symptoms of hypersensitivity and/or anaphylactic-type reactions per institutional standard during and for at least 30 minutes following the end of administration and until clinically stable.4 ml labetalol hydrochloride 5 mg/ml cartridge (2 sources)beta-Adrenergic BlockerStart: 93-40-958948 mg, Intravenous, EVERY 30 MIN PRN, High Blood Pressure, Starting Sat03/18/20 at 1350, For 2 doses For SBP greater than 150 mmHG. Hold if heart rate is less than 60. Dont use if hydralazine was used as PRN Recovery(Cath)Start: 07-18-2019 End: 31-16-9394rolhswklt (NORMODYNE;TRANDATE) injection 10 mgammonium lactate 120 mg/ml topical lotion (4 sources)Start: 69-52-6118basbxdeo lactate (LAC-HYDRIN) 12 % lotion Indications: Dry skin Apply topically as needed. 396 g 2 06/15/2024 Active lactobacillus rhamnosus gg [id number] unt oral capsule (1 source)Start: 51-54-8963hbit 1 capsule by mouth once daily at breakfast lactobacillus (CULTURELLE) capsule Take 1 capsule by mouth daily (with breakfast) 30 capsule 10/27/2024 ActivelevoFLOXacin 250 mg oral tablet (11 sources)Quinolone AntimicrobialStart: 60-07-3330chas 1 tablet by mouth once daily after mmtuovpc144 mg, oral, Daily, First dose on Jenn [...] Box warnings of fluoroquinolones. Start: 12-11-2024 End: 84-80-4740bxdc 1 tablet by mouth in the morninglevoFLOXacin (LEVAQUIN) 750 mg tablet Take 1 tablet (750 mg total) by mouth in the morning for 28 days. 28 tablet 12/11/2024 01/08/2025 ActiveStart: 08-13-2022 End: 75-55-8323wbkz 1 tablet by mouth once dailylevoFLOXacin (LEVAQUIN) 750 MG tablet Indications: Chronic obstructive pulmonary disease, unspecified COPD type (HCC) Take 1 tablet by mouth daily for 7 days 7 tablet 0 08/13/2022 08/20/2022 ActiveStart: 10-06-2019 End: 77-57-9033atvz 1 tablet by mouth once dailylevoFLOXacin (LEVAQUIN) 500 MG tablet Take 1 tablet by mouth daily for 10 days 10 tablet 0 10/06/2019 10/16/2019 ActiveStart: 07-18-2019 End: 01-52-8320brocbvdkrsil (LEVAQUIN) 750 MG/150ML infusion 750 mgStart: 07-17-2019 End: 59-83-9645vnzuifgkxvcb (LEVAQUIN) 500 MG/100ML infusion 500 mgStart: 04-26-2019 End: 78-30-9277xuap 1 tablet by mouth once dailylevofloxacin (LEVAQUIN) 500 MG tablet Take 1 tablet by mouth daily for 5 days 5 tablet 0 ActiveStart: 10-65-9651664 mg, Intravenous, EVERY 24 HOURS, First dose on Sat04/22/19 at 2100, Until DiscontinuedStart: 04-21-2019 End: 91-56-4062ofsaogzbszwg (LEVAQUIN) 750 MG/150ML infusion 750 mglidocaine 0.05 mg/mg medicated patch (15 sources)Antiarrhythmic, Amide Local AnestheticStart: 11-19-2024 End: 96-01-4873lavmghewl (LIDODERM) 5 % Place 1 patch onto the skin daily for 10 days 12 hours on, 12 hours off. 10 patch 11/19/2024 11/29/2024 ActiveStart: 46-19-6126olnt 15 mL by mouth four times daily as neededlidocaine viscous hcl (XYLOCAINE) 2 % SOLN solution Take 15 mLs by mouth 4 times daily as needed Along with Diphenhydramine and antacid 07/21/2024 ActiveStart: 02-22-2021 End: 49-86-3317atwst 1 dose transdermal route once dailylidocaine (LIDODERM) 5 % Place 1 patch onto the skin daily 12 hours on, 12 hours off. 10 patch 0 03/17/2021 Discontinued (LIST CLEANUP)Start: 25-20-8612wflyjfqor 4 % external patch 1 patchStart: 04-05-2020 End: 00-00-0039gghvc 1 dose transdermal route once dailylidocaine (LIDODERM) 5 % Place 1 patch onto the skin daily 12 hours on, 12 hours off. 10 patch 0 01/2021 ActiveStart: 07-22-2019 End: 06-93-0732lzffygnwy 1 % injection 5 mLStart: 07-22-2019 End: 19-47-1900xgfjncvzj 1 % injectionStart: 04-12-2019 End: 61-02-2854slmud 1 dose transdermal route once dailylidocaine (LIDODERM) 5 % Place 1 patch onto the skin daily 12 hours on, 12 hours off. 30 patch 0 03/202004/26/2019 Discontinued (Stop Taking at Discharge)linezolid 600 mg oral tablet (1 source)Oxazolidinone AntibacterialStart: 11-16-2024 End: 18-94-4689augv 1 tablet by mouth twice dailylinezolid (ZYVOX) 600 MG tablet Indications: Cellulitis, unspecified cellulitis site Take 1 tablet by mouth 2 times daily for 7 days 14 tablet 11/16/2024 11/23/2024 Activeliothyronine sodium 0.005 mg oral tablet (1 source)l-TriiodothyronineStart: 39-23-0039dsrc 2 tablets by mouth once daily liothyronine (CYTOMEL) 5 MCG tablet Take 2 tablets by mouth daily 04/21/2023 Activelisinopril 40 mg oral tablet (20 sources)Angiotensin Converting Enzyme InhibitorStart: 69-13-1951aekd 1 tablet by mouth once dailylisinopril 40 MG tablet Take 1 tablet by mouth daily. 0 06/22/2021 ActiveStart: 07-26-2019 End: 79-98-8715rcrt 1 tablet by mouth once dailylisinopril (PRINIVIL;ZESTRIL) 20 MG tablet Take 1 tablet by mouth daily 30 tablet 3 07/26/2019 ActiveStart: 47-47-1140bxft 1 tablet by mouth once dailylisinopril (PRINIVIL;ZESTRIL) 20 MG tablet Take 1 tablet by mouth daily 30 tablet 3 07/26/2019 ActiveStart: 07-24-2019 End: 52-71-9596savcmhoymh (PRINIVIL;ZESTRIL) tablet 5 mgStart: 04-29-2018 End: 36-78-2269Aqtrvlupgy 10 MG Oral Tablet 03/21/2020 Provider: Vahid Nagy CNPStart: 08-16-2017 End: 97-29-3964Frrsidvweu 10MG OR TABS 08/16/2017 - 08/16/2017 Provider: LORazepam 0.5 mg oral tablet (20 sources)BenzodiazepineStart: 77-09-5793PAUtyijqt (ATIVAN) tablet 0.5 mg Start: 08-89-3911pfhc 0.5 mg by mouth every six hours as needed for anxiety0.5 mg, Oral, EVERY 6 HOURS PRN, Anxiety, Starting Jenn 07/23/19 at 0839Start: 06-17-2019 End: 06-02-4028Rbkmhd 1 MG Oral Tablet 07/09/2019 Provider: Vahid Nagy [employer] Start: 58-78-7758zral 0.5 mg by mouth every six hours as needed for anxiety0.5 mg, Oral, EVERY 6 HOURS PRN, Anxiety, Starting 04/21/19 at 2231Start: 04-29-2018 End: 94-00-4340NSDwqtvug 0.5MG Oral Tablet 06/27/2018 - 07/28/2018 Provider: Vahid Nagy CNPStart: 12-27-2017 End: 64-36-7057CSLmdpciy 0.5 MG TABS 12/27/2017 - 12/27/2017 Provider:Start: 12-27-2017 End: 64-78-5159EUXtzcsfp 0.5 MG TABS 12/27/2017 - 12/27/2017 Provider:Start: 11-04-2017 End: 46-68-3764IIDkqopxl 0.5 MG TABS 11/04/2017 - 11/04/2017 Provider:Start: 10-22-2017 End: 77-08-5816XEYcuuzfb 0.5 MG TABS 10/22/2017 - 10/22/2017 Provider:Start: 10-22-2017 End: 20-76-5029OXLvjqfel 0.5 MG TABS 10/22/2017 - 10/22/2017 Provider:Start: 09-11-2017 End: 35-81-0141DXEhsswro 0.5 MG TABS 09/11/2017 - 09/11/2017 Provider:Start: 09-11-2017 End: 94-74-8099RTVndknsq 0.5 MG TABS 09/11/2017 - 09/11/2017 Provider:Start: 85-57-0465gsye 1 tablet by mouth once daily as needed for anxietylorazepam 0.5 mg oral tablet 02/15/2017 take 1 tablet (0.5 mg) by oral route once daily as needed only for severe anxietyStart: 02-15-2017 End: 69-34-2903NSQggxgav 0.5 MG TABS 02/15/2017 - 02/15/2017 Provider:Start: 01-17-2017 End: 80-54-2737HZUuedbyx 0.5 MG TABS 01/17/2017 - 01/17/2017 Provider:losartan potassium 50 mg oral tablet (20 sources)Angiotensin 2 Receptor BlockerStart: 46-32-1502wtsa 100 mg by mouth once vuxts157 mg, oral, Daily, First dose on Sat12/31/24 at 0900, Look-alike/sound-alike medication - verify indication for use.Start: 08-13-2024 take 100 mg by mouth once islfw825 mg, Oral, DAILY, First dose on Sat08/13/24 at 0900, Until DiscontinuedStart: 03-94-4531ytua 100 mg by mouth once rhlab784 mg, Oral, DAILY, First dose on Sat08/07/24 at 0900, Until DiscontinuedStart: 26-79-7488wgpn 1 tablet by mouth in the morninglosartan (COZAAR) 100 mg tablet Take 1 tablet (100 mg total) by mouth in the morning. 09/06/2022 ActiveStart: 54-06-3459iyyo 1 tablet by mouth once dailylosartan (COZAAR) 100 MG tablet Indications: Primary hypertension Take 1 tablet by mouth daily 90 tablet 1 05/21/2022 ActiveStart: 58-43-8567ljtm 1 tablet by mouth once dailylosartan (COZAAR) 50 MG tablet Indications: Primary hypertension take 1 tablet by mouth once daily 30 tablet 0 12/25/2021 ActiveStart: 08-07-7000zdalbfkj (COZAAR) tablet 100 mgmagic (miracle) mouthwash (1 source)Start: 83-20-0783Nnpft Mouthwash (MIRACLE MOUTHWASH) (4 sources)Start: 82-10-9594bloa 15 mL by mouth four times daily as neededMagic Mouthwash (MIRACLE MOUTHWASH) Indications: Mouth sore Swish and swallow 15 mLs 4 times daily as needed for Irritation Shake Well; For Oral Use. Lidocaine Viscous 2%; 80mL, Diphenhydramine 12.5MG/5Ml; 80mL, ALUM & MAG HYDROXIDE-SIMETH 200-200-20 MG/5ML; 80mL. 80 mL 07/21/2024 Activemagic mouthwash 15 mL (1 source)Start: 64-09-7390tisuqppzt hydroxide 80 mg/ml oral suspension (1 source)Start: 47-73-3368twvy 30 mL by mouth once daily as needed for lcfqmdqmwyck52 mL, Oral, DAILY PRN, Constipation, Starting Sat04/21/19 [...] result continue the replacement orders as needed.Start: 32-76-7478Hiths: 49-15-7551Nlehv: 07-18-2019 End: 74-46-4757ribktaniv sulfate 1 g in dextrose 5% 100 mL IVPBStart: 07-17-2019 End: 77-41-2456agqjcvkbx sulfate 2 g in 50 mL IVPB premixmeclizine hydrochloride 12.5 mg oral tablet (20 sources)AntiemeticStart: 06-15-2019 End: 24-05-3590vtkzzddhu (ANTIVERT) tablet 25 mgStart: 02-20-2019 End: 02-51-9294djaa 1 tablet by mouth three times daily as needed for dizziness meclizine (ANTIVERT) 12.5 MG tablet Take 1 tablet by mouth 3 times daily as needed for Dizziness 90tablet 0 07/25/2019 Activemelatonin 3 mg oral tablet (3 sources)Start: 65-43-4846wzcg 1 tablet by mouth once daily at bedtime melatonin 10 mg tablet Take 1 tablet by mouth once daily at bedtime. Active methocarbamol 500 mg oral tablet (20 sources)Muscle RelaxantStart: 85-18-9037egxj 750 mg by mouth four times stvyf787 mg, oral, 4 times daily, First dose on Sat12/31/24 at 1700, Indications: muscle spasmStart: 47-36-4307qjkp 1 tablet by mouth four times daily [...] ENING AND BEDTIME 120 tablet 11/12/2024 ActiveStart: 72-74-5973isme 750 mg by mouth four times ktmyu872 mg, Oral, 4 TIMES DAILY, First dose on Sat08/12/24 at 1700, Until DiscontinuedStart: 51-97-2944owvm 750 mg by mouth four times daily 750 mg, Oral, 4 TIMES DAILY, First dose on Jenn 25 at 1700, Until DiscontinuedStart: 98-77-6511awrx 1 tablet by mouth four times daily [...] EVENING AND BEDTIME 120 tablet 07/27/2024 ActiveStart: 19-66-0337phqd 1 tablet by mouth four times daily at bedtimemethocarbamol (ROBAXIN) 750 MG tablet Indications: Chronic right hip pain , Lumbar back pain with radiculopathy affecting right lower extremity , Chronic left hip pain , Chronic pain syndrome , Sacral pain take 1 tablet by mouth four times a day - MORNING, NOON, EVENING AND BEDTIME 120 tablet 10/23/2023 ActiveStart: 16-38-6211ibuc 1 tablet by mouth four times dailymethocarbamol (ROBAXIN) 750 MG tablet Indications: Chronic right hip pain , Sacral pain , Lumbar back pain with radiculopathy affecting right lower extremity , Chronic left hip pain , Chronic pain syndrome Take 1 tablet by mouth 4 times daily 120 tablet 0 08/13/2022 ActiveStart: 18-83-7766xpxc 1 tablet by mouth four times dailymethocarbamol (ROBAXIN) 750 MG tablet Indications: Chronic right hip pain , Sacral pain , Lumbar back pain with radiculopathy affecting right lower extremity , Chronic left hip pain , Chronic pain syndrome Take 1 tablet by mouth 4 times daily 120 tablet 0 07/10/2022 ActiveStart: 04-06-2021 End: 44-41-3562akyc 1 tablet by mouth four times dailymethocarbamol (ROBAXIN- 750) 750 MG tablet Indications: Chronic right hip pain , Muscle spasm Take 1 tablet by mouth 4 times daily for 10 days 40 tablet 0 04/06/2021 04/16/2021 ActiveStart: 01-12-2021 End: 79-44-5742nhrs 1 tablet by mouth four times daily as needed for pain methocarbamol (ROBAXIN) 500 MG tablet Take 1 tablet by mouth 4 times daily as needed (Muscle pain/spasm) 40 tablet 0 01/12/2021 01/22/2021 Active methylPREDNISolone 40 mg injection (7 sources)CorticosteroidStart: 61-99-6339ezmh 40 mg intravenously every eight hours40 mg, intravenous, Every 8 hours, First dose on Sat12/30/24 at 2200, May alter blood glucose or insulin requirements. Look-alike/sound-alike medication - verify indication for use.Start: 12-30-2024 End: 84-91-0468991 mg, intravenous, Once, On Sat12/30/24 at 1510, For 1 dose, May alter blood glucose or insulin requirements. Look-alike/sound-alike medication - verify indication for use.Start: 10-07-2019 End: 87-74-0049wjuvofTZBLAQRwnhlq sodium (SOLU-MEDROL) injection 125 mgStart: 07-18-2019 End: 59-64-6140trimxbRRKGLKFpodgz sodium (SOLU-MEDROL) injection 40 mgStart: 04-22-2019 End: 52-05-6496179 mg, Intravenous, DAILY, First dose on Sat04/22/19 at 0900 Start: 04-21-2019 End: 50-17-3691bnzaogZVORYLRtlcov sodium (SOLU-MEDROL) injection 125 mg24 hr metoprolol succinate 25 mg extended release oral tablet (20 sources)beta-Adrenergic BlockerStart: 99-30-3413hhrp 25 mg by mouth once daily25 mg, oral, Daily, First dose on Sat12/31/24 at 0900, Look-alike/sound-alike medication - verify indication for use. Do not crush or chew.Start: 75-17-8878sjkz 1 tablet by mouth once dailymetoprolol succinate (TOPROL XL) 25 MG extended release tablet Take 1 tablet by mouth daily 90 tablet 1 09/02/2024 ActiveStart: 99-73-5060dmkd 25 mg by mouth once daily25 mg, Oral, DAILY, First dose on Sat08/13/24 at 0900, Until Discontinued, Do not crush or chew.Start: 08-62-3061nsfx 25 mg by mouth once dailyMetoprolol Succinate Active 25 MG PO Daily January 19, 2024 12:00amStart: 13-10-9181sszd 1 tablet by mouth once dailymetoprolol succinate (TOPROL XL) 25 MG extended release tablet Take 1 tablet by mouth daily 90 tablet 1 11/04/2023 ActiveStart: 85-73-7847aitw 1 tablet by mouth every twenty-four hours in the morningmetoprolol succinate XL (TOPROL XL) 25 mg 24 hr tablet Take 1 tablet (25 mg total) by mouth in the m orning. 30 tablet 2 09/27/2022 ActiveStart: 75-12-1668gmaj 1 tablet by mouth twice dailymetoprolol 25 MG tab regular release Take 1 tablet by mouth 2 times daily. 0 06/22/2021 ActiveStart: 88-95-0952eizjnkwhwd tartrate (LOPRESSOR) tablet 25 mgStart: 66-44-6983zjesiykzxn (LOPRESSOR) injection 5 mgStart: 12-16-2019 End: 28-32-4104eean 1 tablet by mouth twice dailymetoprolol tartrate (LOPRESSOR) 25 MG tablet Take 1 tablet by mouth 2 times daily 180 tablet 3 03/19/2020 ActiveStart: 29-16-5593uwma 1 tablet by mouth every twenty-four hoursMetoprolol Succinate ER 25 MG Oral Tablet Extended Release 24 Hour 09/24/2019 Provider: Start: 07-21-2019 End: 05-48-3612kjrvmlfkzq tartrate (LOPRESSOR) tablet 12.5 mgStart: 07-18-2019 End: 48-41-4191otxv 1 tablet by mouth twice dailymetoprolol tartrate (LOPRESSOR) 25 MG tablet Take 1 tablet by mouth 2 times daily 60 tablet 3 07/25/2019 Active Start: 04-16-2019 End: 00-83-2946idtz 1 tablet by mouth every twenty-four hoursMetoprolol Succinate ER 100 MG Oral Tablet Extended Release 24 Hour 04/16/2019 - 09/24/2019 Provider: Vahid Nagy CNPStart: 04-29-2018 End: 09-56-1404onuy 1 tablet by mouth every twenty-four hoursMetoprolol Succinate ER 100MG Oral Tablet Extended Release 24 Hour 04/29/2018 - 04/14/2019 Provider:Start: 04-26-2018 End: 44-03-5348Zhxgnkvdlt Tartrate 50 MG OR TABS 04/26/2018 - 04/26/2018 Provider: Conversion ProviderStart: 04-26-2018 End: 32-47-8650Jkvbsdcphx Tartrate 25 MG OR TABS 04/26/2018 - 04/26/2018 Provider: Conversion ProviderStart: 03-17-2018 End: 70-45-3851DDLZPQWHPX SUCCINATE 100 MG [facility] 03/17/2018 - 03/17/2018 Provider:Start: 03-17-2018 End: 85-08-1403HPGFQZLOEX SUCCINATE 100MG [facility] 03/17/2018 - 03/17/2018 Provider: Start: 02-19-2017 End: 48-04-8594TMQUHHBAPN SUCCINATE 100 MG [facility] 02/19/2017 - 02/19/2017 Provider:Start: 02-19-2017 End: 60-64-5586FGIMMVEDEW SUCCINATE 100MG [facility] 02/19/2017 - 02/19/2017 Provider: Start: 02-19-2017 End: 71-22-9089twvi 100 mg by mouth once ojzrq203 mg, Oral, DAILY, First dose on Sat04/22/19 at 0900 Do not crush or chew.Start: 12-14-2016 End: 87-74-2939Cqeqifdqsn Tartrate 25 MG OR TABS 12/14/2016 - 12/14/2016 Provider:Start: 12-14-2016 End: 69-53-8307Jhiqynznro Tartrate 25 MG OR TABS 12/14/2016 - 12/14/2016 Provider:Start: 04-14-2015 End: 57-28-0784Pbjxsritrt Tartrate 25 MG OR TABS 04/14/2015 - 04/14/2015 Provider:miconazole nitrate 0.02 mg/mg topical powder (1 source)Azole AntifungalStart: 75-33-9997vujqewjxgd (MICOTIN) 2 % powder midodrine hydrochloride 5 mg oral tablet (3 sources)alpha-Adrenergic AgonistStart: 81-11-4786poywdttlm (PROAMATINE) 5 MG tablet 08/19/2024 ActiveStart: 88-71-0796zkrn 1 tablet by mouth three times daily at mealtimemidodrine (PROAMATINE) 5 MG tablet Take 1 tablet by mouth 3 times daily (with meals) 90 tablet 3 05/17/2021 ActiveMultiple Vitamin (MULTIVITAMIN) TABS tablet (1 source)Start: 95-09-4280pqjx 1 tablet by mouth once dailyMultiple Vitamin (MULTIVITAMIN) TABS tablet Take 1 tablet by mouth daily 30 tablet 2 10/27/2024 Activemupirocin 0.02 mg/mg topical ointment (17 sources)RNA Synthetase Inhibitor AntibacterialStart: 90-47-7817Getqchoqg 2% External Ointment 04/12/2020 Provider: Vahid Nagy CNPStart: 04-12-2020 Mupirocin 2% External Ointment 04/12/2020 Provider: Vahid Nagy CNPStart: 08-06-2019 End: 64-84-5088Copfabafd 2% External Ointment 08/06/2019 - 04/12/2020 Provider: Vahid Nagy CNPnaloxone (NARCAN) 4 mg/actuation spray,non-aerosol nasal spray (2 sources)Start: 78-33-8277wczltkos (NARCAN) 4 mg/actuation spray,non-aerosol nasal spray Administer 1 spray (4 mg total) intoalternating nostrils as needed for opioid reversal. 1 each 12/17/2024 ActiveStart: 51-76-5544mpvegthj (NARCAN) 4 mg/actuation spray,non-aerosol nasal spray Administer 1 spray (4 mg total) intoalternating nostrils as needed for opioid reversal. 1 each 12/17/2024 naproxen 500 mg oral tablet (2 sources)Nonsteroidal Anti-inflammatory DrugStart: 24-74-1267aqnw 1 tablet by mouth twice daily as needed for painnaproxen (NAPROSYN) 500 MG tablet Take 1 tablet by mouth 2 times daily as needed for Pain 30 tablet0 07/29/2022 Hjtnlb63 hr nicotine 0.875 mg/hr transdermal system (20 sources)Cholinergic Nicotinic AgonistStart: 57-64-3564vaoyg 1 dose transdermal route once daily1 patch, transdermal, Administer over 24 Hours, Daily, First dose on [facility] 12/31/24 at 1515, Remove patch prior to MRI procedure as serious lloyd may occur- patch may be reapplied. Remove previous patch, if present, before applying new.Start: 31-27-3909xrctl 1 dose transdermal route once dailynicotine (NICODERM CQ) 21 MG/24HR Place 1 patch onto the skin daily 30 patch 09/08/2024 ActiveStart: 06-08-3710lzzfm 1 dose transdermal route once dailynicotine (NICODERM CQ) 21 MG/24HR Place 1 patch onto the skin daily 08/18/2024 ActiveStart: 47-94-5112vnscu 1 dose transdermal route once daily nicotine (NICODERM CQ) 21 MG/24HR Place 1 patch onto the skin daily 08/18/2024 ActiveStart: 24-52-4177yvsje 1 dose transdermal route once daily at [...] to facility policy for handling and disposal.Start: 53-86-9477volyl 1 dose transdermal route once daily at [...] policy for handling and disposal.Start: 04-27-2022 End: 03-73-4504swcig 1 dose transdermal route every twenty-four hoursnicotine 14 MG/24HR Patch [address] 1 patch on skin every 24 hours for 14 days. 14 patch 0 04/27/2022 05/11/2022 ActiveStart: 70-22-8336sqoyp 1 dose transdermal route every twenty-four hoursnicotine 7 MG/24HR Patch [address] 1 patch on skin every 24 hours. 14 patch 0 04/27/2022 ActiveStart: 79-19-3701ozfcosef polacrilex 2 MG Gum Take 1 Each by mouth as needed for Smoking cessation. 40 Each 3 04/27/2022 ActiveStart: 93-90-1302siusmnnc (NICODERM CQ) 7 MG/24HR Place 1 patch onto the skin daily 30 patch 3 05/18/2021 ActiveStart: 03-17-2021 nicotine (NICODERM CQ) 21 MG/24HR 1 patchStart: 56-44-4036qieje 1 dose transdermal route once dailynicotine (NICODERM CQ) 21 MG/24HR Place 1 patch onto the skin daily 30 patch 3 02/23/2021 ActiveStart: 80-99-6265hntgkqar (NICODERM CQ) 14 MG/24HR 1 patchStart: 09-21-2019 End: 52-09-3888hcstxqyw (NICODERM CQ) 7 MG/24HR Indications: Tobacco abuse Place 1 patch onto the skin daily for 14 days 14 patch 0 09/21/2019 ActiveStart: 04-21-2019 End: 64-32-2847flduuxqh (NICODERM CQ) 14 MG/24HR 1 patchnitroglycerin 0.4 mg sublingual tablet (20 sources)Nitrate VasodilatorStart: 17-31-4625dsntdIVOKOQCU (NITROSTAT) 0.[address] 1 tablet under the tongue every 5 minutes as needed for Chest pain up to max of 3 total doses. If no relief after 1 dose, call 911. 25 tablet 3 02/19/2024 ActiveStart: 33-59-0145itwvsIQIWRJVO (NITROSTAT) 0.[address] 1 tablet under the tongue every 5 minutes as needed for Chest pain up to max of 3 total doses. If no relief after 1 dose, call 911. 25 tablet 3 024 ActiveStart: 38-01-2271chohuWIIPUUBC (NITROSTAT) 0.[address] 1 tablet under the tongue as needed for Chest pain25 tablet 3 05/09/2021 Active Start: 07-17-2019 End: 22-50-3098vwwirSQYYCRZU (NITROSTAT) 0.[address] 1 tablet under the tongue as needed for Chest pain25 tablet 3 07/25/2019 ActiveStart: 82-64-2796Nijxxonid 0.4MG Sublingual Tablet Sublingual 04/29/2018 Provider: Start: 04-26-2018 End: 64-08-1875Azbtodvxy 0.4 MG SL SUBL 04/26/2018 - 04/26/2018 Provider: Conversion ProviderStart: 02-24-2018 End: 34-94-5988Buuqgtfsy 0.4MG SL SUBL 02/24/2018 - 02/24/2018 Provider:Start: 12-14-2016 End: 15-37-5293Fvzcbslbx 0.4MG SL SUBL 12/14/2016 - 12/14/2016 Provider:Start: 04-14-2015 End: 17-52-4804Whffagbar 0.4 MG SL SUBL 04/14/2015 - 04/14/2015 Provider: Nitrostat 0.4MG Sublingual Tablet Sublingual (2 sources)Start: 93-66-3892Jdebunmso 0.4MG Sublingual Tablet Sublingual 04/29/2018 Provider:Nutritional Supplements (ENSURE HIGH PROTEIN) LIQD (2 sources)Start: 06-20-2021 End: 64-13-8586yonb 1 dose by mouth at bedtimeNutritional Supplements (ENSURE HIGH PROTEIN) LIQD Indications: Malnutrition, unspecified type (HCC) Take 1 each by mouth in the morning, at noon, and at bedtime 90 each 0 06/20/2021 07/20/2021 Activenystatin 298157 unt/ml / triamcinolone acetonide 1 mg/ml topical cream (4 sources)Polyene Antifungal, CorticosteroidStart: 19-42-4434Jsdcnrxg- Triamcinolone 623094-6.1UNIT/GM-% External Cream 09/30/2018 Provider: Vahid Nagy CNPofloxacin 3 mg/ml otic solution (2 sources)Quinolone AntimicrobialStart: 75-13-1682Zkynbkbbd 0.3% Otic Solution 04/12/2020 Provider: Vahid Nagy CNPStart: 18-26-0661Nnyoblzrk 0.3% Otic Solution 04/12/2020 Provider: Vahid Nagy CNP2 ml ondansetron 2 mg/ml injection (18 sources)Serotonin-3 Receptor AntagonistStart: 87-87-7338xjao 4 mg intravenously every six hours as needed for nausea and vomiting4 mg, intravenous, Every 6 hours PRN, nausea, vomiting, Starting on Sat12/30/24 at 2153, Intravenous administration preferred to be given over 2-5 minutes.Start: 11-19-2024 End: mg, IntraVENous, ONCE, 1 dose, On Jenn 11/19/24 at 1315Start: 82-32-1327udgw 1 tablet by mouth every eight hours as needed for nausea and vomitingondansetron ODT (ZOFRAN ODT) 4 mg disintegrating tablet Dissolve 1 tablet (4 mg total) on tongue every 8 (eight) hours as needed for nausea or vomiting. 02/06/2024 ActiveStart: 03-18-2021 End: 64-19-9669zblzwlisjby (ZOFRAN) injection 4 mgStart: 02-09-2021 End: 75-54-3765wxmgvjjefkw (ZOFRAN) injection 4 mgStart: 01-17-2021 End: 24-44-7277iqlueshwslm (ZOFRAN) injection 4 mgStart: 01-12-2021 End: 42-02-8374bdmvnqnrknz (ZOFRAN) injection 4 mgStart: 12-04-2020 End: 01-39-4152usuz 1 tablet by mouth every eight hours as needed for nausea ondansetron (ZOFRAN ODT) 4 MG disintegrating tablet Take 1 tablet by mouth every 8 hours as needed for Nausea or Vomiting 14 tablet 0 12/04/2020 03/17/2021 Discontinued (LIST CLEANUP)Start: mg, Intravenous, EVERY 6 HOURS PRN, Nausea, Starting Tu04/21/19 at 2231ondansetron (ZOFRAN-ODT) disintegrating tablet 4 mg (2 sources)Start: 50-38-7593ossyvtsyiyt (ZOFRAN-ODT) disintegrating tablet 4 mg Start: 11-64-3422nphluqkyays (ZOFRAN-ODT) disintegrating tablet 4 mgOxygen (20 sources)OXYGEN Inhale 2 L into the lungs 0 SuspendedOXYGEN Inhale 2 L into the lungs 0 Activepantoprazole 40 mg delayed release oral tablet (14 sources)Proton Pump InhibitorStart: 87-59-910884 mg, oral, 2 times daily before meals, First dose on Sat12/31/24 at 0700, Look-alike/sound-alike m edication - verify indication for use. If patient is receiving enteral feeding, consider alternative PPI or continue IV pantoprazole until the delayed-release tablet can be taken orally, Indication: GERDStart: 11-75-3588ktnj 1 tablet by mouth in the morning, then take 1 tablet by mouth before mealtimepantoprazole (PROTONIX) 40 mg EC tablet Take 1 tablet (40 mg total) by mouth in the morning and 1 tablet (40 mg total) in the evening. Take before meals. 60 tablet 2 01/17/2024 ActiveStart: 28-33-0987giub 1 tablet by mouth in the morning, then take 1 tablet by mouth before mealtimepantoprazole (PROTONIX) 40 mg EC tablet Take 1 tablet (40 mg total) by mouth in the morning and 1 tablet (40 mg total) in the evening. Take before meals. 60 tablet 2 01/17/2024 Activephenazopyridine hydrochloride 100 mg oral tablet (1 source)Start: 70-54-3153Pwhkyycg 100 MG Oral Tablet 11/16/2019 Provider: Vahid Nagy CNPStart: 07-70-4379Nraovfga 100 MG Oral Tablet 11/16/2019 Provider: Vahid Nagy CNPpioglitazone 45 mg oral tablet (20 sources)Peroxisome Proliferator Receptor alpha Agonist, Peroxisome Proliferator Receptor gamma Agonist, ThiazolidinedioneStart: 09-02-2024 End: 11-73-5426zscu 1 tablet by mouth once dailypioglitazone (ACTOS) 45 MG tablet Take 1 tablet by mouth daily 90 tablet 09/02/2024 12/01/2024 ActiveStart: 83-40-5879ecrg 45 mg by mouth once daily45 mg, Oral, DAILY, First dose on Jenn 08/13/24 at 0900, Until DiscontinuedStart: 48-19-5408gyzh 1 tablet by mouth once dailypioglitazone (ACTOS) 15 MG tablet Indications: Type 2 diabetes mellitus with other specified complication, without long-term current use of insulin (HCC) Take 1 tablet by mouth daily 90 tablet 0 04/06/2021 ActiveStart: 94-57-5184olyjfbdrctbl (ACTOS) tablet 15 mgStart: 08-15-5220Amxdd 15 MG Oral Tablet 09/24/2019 Provider:Start: 04-14-2015 End: 30-89-3801Rjrrd 15MG OR TABS 12/14/2016 - 12/14/2016 Provider:take 1 tablet by mouth once dailypioglitazone (ACTOS) 45 MG tablet Take 1 tablet by mouth daily Activepiperacillin-tazobactam (ZOSYN) 3,375 mg in dextrose 5 % 50 mL IVPB extended infusion (mini-bag) (1 source)Start: 42-38-6759nfugnbwbkbyd-tazobactam (ZOSYN) 3,375 mg in dextrose 5 % 50 mL IVPB extended infusion (mini-bag)polyethylene glycol 3350 14167 mg powder for oral solution (4 sources)Osmotic LaxativeStart: 81-01-3519Aqnxo: 84-43-3567Jzqgu: 03-17-2020 polyethylene glycol (GLYCOLAX) packet 17 gStart: 25-49-380733 g, Oral, DAILY PRN, Constipation, Starting 07/18/19 at 0128 First line therapy for constipationpolymyxin b 45416 unt/ml / trimethoprim 1 mg/ml ophthalmic solution (20 sources)Dihydrofolate Reductase Inhibitor Antibacterial, Polymyxin-class AntibacterialStart: 09-02-2024 End: 07-95-4883ofad 1 drop(s) into the eye(s) every four hourstrimethoprim- polymyxin b (POLYTRIM) 54728-1.1 UNIT/ML-% ophthalmic solution Place 1 drop into both eyes every 4 hours for 10 days 10 mL 09/02/2024 09/12/2024 ActiveStart: 03-03-2019 End: 28-47-2438Nvtorpftt B-Trimethoprim 75691-4.1 UNIT/ML-% Ophthalmic Solution 03/03/2019 - 09/24/2019 Provider: Elena Malik CNPmicroencapsulated potassium chloride 20 meq extended release oral tablet (14 sources)Start: mEq, oral, Daily, First dose on Jenn 12/31/24 at 1115, Do not crush or chew.Start: 09-37-2272swcnmzzxr chloride (K-TAB,KLOR-CON) CR tablet 30-50 mEqStart: 63-64-7075vmcdinbra chloride (KLOR-CON M) extended release tablet 40 mEqStart: 36-34-2940lwalchity chloride (KLOR-CON M) extended release tablet 40 mEqStart: 02-06-2024 End: 94-40-2253ipeo 1 dose by mouth in the morningpotassium chloride (KLOR-CON) 20 mEq packet Take 1 packet (20 mEq total) by mouth in the morning and 1 packet (20 mEq total) before bedtime. 02/06/2024 ActiveStart: 10-40-2158zlly 20 mEq by mouth twice dailypotassium chloride (KLOR-CON) 20 MEQ packet Take 20 mEq by mouth 2 times daily 180 each 3 04/24/2023 ActiveStart: 07-25-2019 End: 88-69-9755mvpjtdulu chloride (KLOR-CON M) extended release tablet 40 mEq Start: 07-21-2019 End: 58-01-3489oukjdtqbh chloride (KLOR-CON M) extended release tablet 40 mEq Start: 07-18-2019 End: 90-74-3810abicfcoyl chloride 20 mEq/50 mL IVPB (Central Line)povidone- iodine 100 mg/ml topical spray (3 sources)AntisepticStart: 08-10-2024 End: 10-35-9920hqfgt 1 dose topically once dailyTopical, DAILY, First dose on Jenn 08/13/24 at 2200, To wounds of feet and toespredniSONE 20 mg oral tablet (20 sources)CorticosteroidStart: 11-19-2024 End: 63-18-2137yoku 1 tablet by mouth twice dailypredniSONE (DELTASONE) 20 MG tablet Take 1 tablet by mouth 2 times daily for 5 days 10 tablet 11/19/2024 11/24/2024 ActiveStart: 14-58-9623hsxepyKIJL (DELTASONE) 10 mg tablet 40 mg for 5 days, 30 mg for 4, 20 mg for 3, 10 mg for 2, then stop 40 tablet 10/23/2022 SuspendedStart: 08-13-2022 End: 79-98-5388umxt 1 tablet by mouth twice dailypredniSONE (DELTASONE) 20 MG tablet Indications: Chronic obstructive pulmonary disease, unspecifiedCOPD type (HCC) Take 1 tablet by mouth 2 times daily for 5 days 10 tablet 0 08/13/2022 08/18/2022 ActiveStart: 03-13-2020 End: 06-06-5595zxuk 1 tablet by mouth twice dailypredniSONE (DELTASONE) 20 MG tablet Take 1 tablet by mouth 2 times daily for 5 days 10 tablet 0 03/13/2020 03/19/2020 Discontinued (Stop Taking at Discharge)Start: 03-13-2020 End: 89-32-2870yawafoAJMC (DELTASONE) tablet 40 mgStart: 02-11-5004ajremfYVIM 20 MG Oral Tablet 09/24/2019 Provider: Shawna Holliday CNPStart: 08-13-2019 End: 78-46-0760vsdqmnIPKH 20 MG Oral Tablet 09/09/2019 - 09/15/2019 Provider: Vahid Nagy CNPStart: 08-04-2019 End: 75-42-0500gwmquuRAJN 20 MG Oral Tablet 08/04/2019 - 07/30/2019 Provider: Vahid Nagy CNPStart: 08-04-2019 End: 21-29-4819wlhwdvOMYW 20 MG Oral Tablet 08/04/2019 - 07/30/2019 Provider: Vahid Nagy CNPStart: 08-04-2019 End: 55-70-1485auislxECHD 20 MG Oral Tablet 08/04/2019 - 07/30/2019 Provider: Vahid Nagy CNPStart: 08-04-2019 End: 12-69-6260kkjqptSUTV 20 MG Oral Tablet 08/04/2019 - 07/30/2019 Provider: Vahid Nagy CNPStart: 08-04-2019 End: 58-07-6144yrrbooHTZY 20 MG Oral Tablet 08/04/2019 - 07/30/2019 Provider: Vahid Nagy CNPStart: 08-04-2019 End: 19-26-3994noxpxlWFLM 20 MG Oral Tablet 08/04/2019 - 07/30/2019 Provider: Vahid Nagy CNPStart: 08-04-2019 End: 53-67-3117dzdmktTFSD 20 MG Oral Tablet 08/04/2019 - 07/30/2019 Provider: Vahid Nagy CNPStart: 08-04-2019 End: 89-74-2864htedtbKNKE 20 MG Oral Tablet 08/04/2019 - 07/30/2019 Provider: Vahid Nagy CNPStart: 08-04-2019 End: 05-45-0878azjcsrLNPP 20 MG Oral Tablet 08/04/2019 - 07/30/2019 Provider: Vahid Nagy CNPStart: 08-04-2019 End: 04-78-5900fdypvuMQAW 20 MG Oral Tablet 08/04/2019 - 07/30/2019 Provider: Vahid Nagy CNPStart: 08-04-2019 End: 13-84-6352vdaaxzWTUH 20 MG Oral Tablet 08/04/2019 - 07/30/2019 Provider: Vahid Nagy CNPStart: 08-04-2019 End: 91-48-9363xntpvwWZJE 20 MG Oral Tablet 08/04/2019 - 07/30/2019 Provider: Vahid Nagy CNPStart: 08-04-2019 End: 14-04-3814turetyNEKN 20 MG Oral Tablet 08/04/2019 - 07/30/2019 Provider: Vahid Nagy CNPStart: 08-04-2019 End: 44-97-2836yuveueEPIB 20 MG Oral Tablet 08/04/2019 - 07/30/2019 Provider: Vahid Nagy CNPStart: 08-04-2019 End: 36-78-6459ahxlvaDTPL 20 MG Oral Tablet 08/04/2019 - 07/30/2019 Provider: Vahid Nagy CNPStart: 07-23-2019 End: 75-35-8881sebcwcXXUN (DELTASONE) tablet 40 mgStart: 06-17-2019 End: 47-69-0491tdfatiRGDH 20 MG Oral Tablet 06/17/2019 - 07/30/2019 Provider: Vahid Nagy CNPStart: 23-62-5811fvfosxBSPA 20 MG Oral Tablet 03/20/2019 Provider: Vahid Nagy CNPStart: 60-46-6780rgoapmZOJQ 20 MG Oral Tablet 03/20/2019 Provider: Vahid Nagy CNPStart: 10-30-2018 End: 86-51-2176ijxidfZBEO 20 MG Oral Tablet 12/11/2018 Provider: Vahid Nagy CNPStart: 02-27-2018 End: 09-87-1485ujktdhVWYW 20 MG OR TABS 02/27/2018 - 02/27/2018 Provider:Start: 08-09-2017 End: 57-78-7020iqcxdbCZLC 20MG OR TABS 08/09/2017 - 08/09/2017 Provider:take 1 tablet by mouth in the morningpredniSONE (DELTASONE) 10 mg tablet Take 1 tablet (10 mg total) by mouth in the morning. ActiveProAir HFA 108 (90 Base)MCG/ACT Inhalation Aerosol Solution (2 sources)Start: 57-19-5598AkoTty HFA 108 (90 Base)MCG/ACT Inhalation Aerosol Solution 04/29/2018 Provider:Promethazine (2 sources)PhenothiazineStart: 67-32-2638kybrsiuzgcnx (PHENERGAN) tablet 12.5 mg Start: 04-39-4495rjpkqdtlnngq (PHENERGAN) tablet 12.5 mgPulse Oximeter For Finger Miscellaneous (15 sources)Start: 05-56-3256Zumel Oximeter For Finger Miscellaneous 07/30/2019 Provider: Vahid Angelita CNPPulse Oximeter For Finger Miscellaneous (1 source)Start: 27-93-1653Snwgq Oximeter For Finger Miscellaneous 07/30/2019 Provider: Vahid Nagy CNPQUEtiapine 25 mg oral tablet (10 sources)Atypical AntipsychoticStart: 55-00-9598sqgx 25 mg by mouth once daily25 mg, oral, Nightly, First dose on Sat12/30/24 at 2215, Look-alike/sound-alike medication - verifyindication for use.Start: 03-29-2024 End: 39-09-1401jlej 1 tablet by mouth once daily for anxietyQUEtiapine (SEROquel) 25 mg tablet Take 1 tablet (25 mg total) by mouth nightly. For anxiety 03/29/2024 ActiveStart: 01-19-2024 End: 86-27-1125uuts 1 tablet by mouth once dailyQuetiapine (Seroquel) 25 mg tablet Discontinued 25 MG PO Daily January 19, 2024 12:00am January 23, 2024 3:47pmStart: 35-98-2891ofif 1 tablet by mouth at bedtimeQUEtiapine (SEROQUEL) 25 MG tablet Take 1 tablet by mouth at bedtime 30 tablet 10/18/2023 ActiveQvar RediHaler 80MCG/ACT Inhalation Aerosol Breath Activated (2 sources)Start: 69-94-2304Ygqp RediHaler 80MCG/ACT Inhalation Aerosol Breath Activated 04/29/2018 Provider:rosuvastatin calcium 10 mg oral tablet (1 source)HMG-CoA Reductase InhibitorStart: 68-71-5880qhml 5 mg by mouth once daily5 mg, oral, Nightly, First dose on Sat12/31/24 at 2200, Look-alike/sound-alike medication - verify indication for use.sertraline 50 mg oral tablet (20 sources)Serotonin Reuptake InhibitorStart: 00-14-4595vfwk 1 tablet by mouth once dailysertraline (ZOLOFT) 50 MG tablet Indications: Depression, unspecified depression type Take 1 tabletby mouth daily 90 tablet 0 11/23/2021 ActiveStart: 08-26-2019 End: 93-88-4588Ktesiopjpt HCl 100 MG Oral Tablet 04/11/2020 Provider: Vahid Nagy CNPStart: 37-93-7337ngmo 50 mg by mouth once daily50 mg, Oral, DAILY, First dose on Sat04/22/19 at 0900Start: 04-14-2019 End: 71-51-4240Zrhsge 50 MG Oral Tablet 07/09/2019 - 08/26/2019 Provider: Vahid Nagy CNPStart: 04-26-2018 End: 72-21-0155PMSZWMLFYL 100 MG [facility] 04/26/2018 - 04/26/2018 Provider:Start: 04-26-2018 End: 78-91-7745NWLBLSYZNG 100MG [facility] [place] 04/26/2018 - 04/26/2018 Provider: End: 35-16-7785ktwg 1 tablet by mouth once dailysertraline 100 mg oral tablet 12/14/2016 take 1 tablet (100 mg) by oral route once edtwc4169 ml sodium chloride 9 mg/ml injection (20 sources)Start: 53-67-9172lpnb 20 mL intravenously every hour as gatjmz69 mL/hr, intravenous, Continuous PRN, to maintain patency of lines, Starting on Sat12/30/24 at 2153Start: 48-94-0016frjc 25 mL intravenously every hour as yymvsy70 mL, intravenous, at 100 mL/hr, Administer over 15 Minutes, As needed, line care, line care afterIVPB administration, Starting on Sat12/30/24 at 2153 Start: 46-03-118780 mL, intravenous, As needed, line care, Starting on Sat12/30/24 at 1547Start: 12-30-2024 End: 75-15-834454 mL, intravenous, Once in imaging, pre/post contrast, Starting on Sat12/30/24 at 1547, For 1 doseStart: 63-06-8972LhuefUNAoxw, at 100 mL/hr, CONTINUOUS, Starting on Sat11/19/24 at 1230Start: 01-45-720378 mL, IntraVENous, EVERY 12 HOURS SCHEDULED (2 times per day), First dose on Sat08/12/24 at 2100, U ntil DiscontinuedStart: 95-31-1691Ntnid: 39-27-1988Tgirq: -40 mL, IntraVENous, EVERY 12 HOURS SCHEDULED [...] Central Line = 20 mL/lumenStart: 08-06-2024 End: 90-18-6785KffglARMtkt, at 75 mL/hr, CONTINUOUS, Starting on Jenn [...] 12-04-2020 End: 10.9 % sodium chloride bolusStart: 59-69-244115 mL, Intravenous, EVERY 12 HOURS SCHEDULED (2 times per day), First dose on Sat03/18/20 at 2100, Recovery(Cath)Start: 76-63-6137tcjq 10 mL intravenous route once10 mL, Intravenous, PRN, Line Care, Starting Sat03/18/20 at 1350 After every IV line use Recovery(Cath)Start: 56-55-0786obmqlj chloride flush 0.9 % injection 10 mL Start: .9 % sodium chloride infusionStart: .9 % sodium chloride infusionStart: 97-07-610978 mL, Intravenous, EVERY 12 HOURS SCHEDULED (2 times per day), First dose on 07/18/19 at 0900Start: 86-39-3753jawj 10 mL intravenous route once as fepunc41 mL, Intravenous, PRN, Line Care, After every IV line use, Starting Sat07/18/19 at 0128Start: 07-18-2019 End: .9 % sodium chloride infusionStart: 07-17-2019 End: .9 % sodium chloride bolusStart: 04-21-2019 End: 25-45-1485Xzywezqktjt, at 75 mL/hr, CONTINUOUS, Starting Tu04/21/19 at 2300Start: 04-21-2019 End: .9 % sodium chloride bolusStart: 02-23-2019 End: .9 % sodium chloride bolusStart: 01-13-2019 End: .9 % sodium chloride bolusSucralfate (Carafate) 100 mg/mL suspension (2 sources)Start: 12-76-1614fmgh 1 mL by mouth every six hoursSucralfate (Carafate) 100 mg/mL suspension Active 10 ML PO Every 6 hours January 19, 2024 12:00amsulfamethoxazole 800 mg / trimethoprim 160 mg oral tablet (5 sources)Dihydrofolate Reductase Inhibitor Antibacterial, Sulfonamide AntimicrobialStart: 66-62-9963agsvibtzsongkruj-trimethoprim (BACTRIM DS;SEPTRA DS) 800-160 MG per tablet 1 tabletStart: 02-12-2020 End: 90-61-4259ynef 1 tablet by mouth twice dailysulfamethoxazole-trimethoprim (BACTRIM DS) 800-160 MG per tablet Take 1 tablet by mouth 2 times daily for 7 days 14 tablet 0 02/12/2020 02/19/2020 ActiveStart: 81-63-5719Htksszk DS 800-160 MG Oral Tablet 12/11/2018 Provider: Vahid Nagy CNPsuvorexant 5 mg oral tablet (1 source)Orexin Receptor AntagonistStart: 11-16-2024 End: 72-50-2514fdyf 1 tablet by mouth once daily at bedtimeSuvorexant (BELSOMRA) 5 MG TABS Indications: Insomnia, unspecified type Take 1 tablet by mouth at be dtiid for 30 days. Max Daily Amount: 5 mg 30 tablet 11/16/2024 12/16/2024 Active levothyroxine sodium 0.075 mg oral tablet (20 sources)l-ThyroxineStart: 54-82-6722gbxe 150 ug by mouth before mcg, oral, Before breakfast, First dose on [...] APPLY TO NEONATESMonitor thyroid function tests weeklyStart: 27-17-6253uftk 1 tablet by mouth once daily in the morninglevothyroxine (SYNTHROID) 150 MCG tablet Indications: Hypothyroidism, unspecified type Take 1 tablet by mouth every morning 90 tablet 1 06/24/2024 ActiveStart: 21-42-6696anlz 1 tablet by mouth once dailyLevothyroxine (Synthroid) 150 mcg tablet Active 150 MCG PO Daily January 19, 2024 12:00amStart: 33-42-7518onqd 1 tablet by mouth once daily in the morninglevothyroxine (SYNTHROID) 150 MCG tablet Indications: Hypothyroidism, unspecified type Take 1 tablet by mouth every morning 90 tablet 06/10/2023 ActiveStart: 84-02-9927uzae 1 tablet by mouth in the morninglevothyroxine (SYNTHROID) 150 MCG tablet Indications: Hypothyroidism, unspecified type Take 1 tablet by mouth in the morning. 90 tablet 1 11/13/2021 ActiveStart: 07-26-2019 End: 36-90-3576atvauhilqlklz (SYNTHROID) tablet 150 mcgStart: 07-26-2019 End: 73-75-3368hbmx 1 tablet by mouth once dailylevothyroxine (SYNTHROID) 150 MCG tablet Take 1 tablet by mouth daily 30 tablet 3 07/26/2019 ActiveStart: 67-24-2936pvxs 150 ug by mouth once mcg, Oral, DAILY, First dose on 07/18/19 at 0900 Tube feeding (TF) interaction, obtain physician order to manage, recommend holding TF for 30 minutes before and after dose.Start: 57-36-9903yqam 1 tablet by mouth once dailylevothyroxine (SYNTHROID) 150 MCG tablet Take 1 tablet by mouth daily 30 tablet 3 07/26/2019 ActiveStart: 04-29-2018 End: 74-32-6264Apcbbyvsavexf Sodium 112MCG Oral Tablet 08/27/2018 Provider: Vahid Nagy CNPStart: 04-26-2018 End: 33-42-9698KCVEQAKWEGQCU 150 MCG [facility] [place] 04/26/2018 - 04/26/2018 Provider: Start: 04-26-2018 End: 36-49-7790YXAJGEZRCVZMS 150MCG [facility] [place] 04/26/2018 - 04/26/2018 Provider:Start: 12-14-2016 End: 61-47-0976FNWMEUFJPHTFW 112 MCG [facility] [place] 12/14/2016 - 12/14/2016 Provider: Start: 12-14-2016 End: 50-89-1734BZHZYEXLBHICL 112MCG [facility] [place] 12/14/2016 - 12/14/2016 Provider:Start: 25-08-7548mmdv 1 tablet by mouth once dailylevothyroxine 112 mcg oral tablet 12/14/2016 take 1 tablet (112 mcg) by oral route once dailyStart: 04-14-2015 End: 08-33-9081MVLOCPSRMMSVS 112 MCG [facility] [place] 04/14/2015 - 04/14/2015 Provider: Start: 04-14-2015 End: 29-52-8318JXLBUGGMHQQBP 112MCG [facility] [place] 04/14/2015 - 04/14/2015 Provider:Start: 03-14-2015 End: 01-54-3038YZCYDSRGNYLVJ 112 MCG [facility] 03/14/2015 - 03/14/2015 Provider: Start: 03-14-2015 End: 11-23-6038KWEHGYEQUKWKH 112MCG [facility] [place] 03/14/2015 - 03/14/2015 Provider: tiZANidine 4 mg oral tablet (20 sources)Central alpha-2 Adrenergic AgonistStart: 10-30-2018 End: 56-66-1133zkVUFwctfy (ZANAFLEX) tablet 4 mgStart: 04-10-2017 End: 99-56-1580Esntchjw 4MG OR TABS 04/10/2017 - 04/10/2017 Provider:Start: 12-14-2016 End: 89-94-9180jvfz 1 tablet by mouth every six hours as neededtiZANidine (ZANAFLEX) 4 MG tablet Take 1 tablet by mouth every 6 hours as needed (cramps) 90 tablet0 07/25/2019 ActiveStart: 12-14-2016 End: 48-90-7312Yezavebv 4 MG OR TABS 12/14/2016 - 12/14/2016 Provider:traMADol hydrochloride 50 mg oral tablet (1 source)Opioid AgonistStart: 03-21-2020 End: 19-83-4474eybo 1 tablet by mouth every four hours [...] 03/24/2020 ActiveTrue Metrix Meter Device (20 sources)Start: 08-46-4002Bfxu Metrix Meter Device 08/12/2019 Provider: Vahid Nagy CNPStart: 05-07-2018 End: 60-81-4160Aang Metrix Meter Device 05/07/2018 - 08/12/2019 Provider: Vahid Nagy CNPStart: 87-02-2307Pazd Metrix Meter Device 05/07/2018 Provider: Vahid Nagy CNPStart: 67-47-6180Hpbv Metrix Meter Device 04/29/2018 Provider:True Metrix Meter Device (10 sources)Start: 16-62-3783Qvbq Metrix Meter Device 08/12/2019 Provider: Vahid Nagy CNPStart: 05-07-2018 End: 01-13-3567Talf Metrix Meter Device 05/07/2018 - 08/12/2019 Provider: Vahid Nagy CNPStart: 14-25-5885Zenm Metrix Meter Device 05/07/2018 Provider: Vahid Nagy CNPStart: 41-61-4269Vmng Metrix Meter Device 04/29/2018 Provider: varenicline 0.5 mg oral tablet (4 sources)Partial Cholinergic Nicotinic AgonistStart: 88-69-5805[facility] Starting Month Jose 0.5 MG X 11 &1 MG X 42 Oral Tablet 04/29/2018 Provider:24 hr venlafaxine 75 mg extended release oral capsule (14 sources)Serotonin and Norepinephrine Reuptake InhibitorStart: 48-97-2446rcvd 150 mg by mouth once mg, oral, Daily, First dose on Jenn 12/31/24 at 1515, Look-alike/sound-alike medication - verify indication for use. Do not crush or chew.Start: 65-01-1582jbip 75 mg by mouth once daily75 mg, oral, Daily, First dose on Jenn 12/31/24 at 1515, Look-alike/sound-alike medication - verify indication for use. Do not crush or chew.Start: 45-45-2606vjvl 1 capsule by mouth every twenty-four hours in the morningvenlafaxine XR (EFFEXOR-XR) 150 mg 24 hr capsule Take 1 capsule (150 mg total) by mouth in the morning. 02/06/2024 ActiveStart: 59-32-7073vkyn 1 capsule by mouth every twenty-four hours in the morningvenlafaxine XR (EFFEXOR XR) 75 mg 24 hr capsule Take 1 capsule (75 mg total) by mouth in the morning. 02/06/2024 ActiveStart: 51-64-4215egln 1 capsule by mouth once dailyvenlafaxine (EFFEXOR XR) 150 MG extended release capsule Indications: Anxiety take 1 capsule by mouth once daily 90 capsule 09/02/2023 ActiveStart: 28-25-2860oaxl 1 capsule by mouth once dailyvenlafaxine (EFFEXOR XR) 75 MG extended release capsule Indications: Anxiety Take 1 capsule by mouth daily 90 capsule 1 06/17/2023 ActiveWalker Miscellaneous (15 sources)Start: 44-80-9069Xrolfy Miscellaneous 07/30/2019 Provider: Vahid Goreker Miscellaneous (1 source)Start: 88-63-7192Czelvc Miscellaneous 07/30/2019 Provider: Vahid Nagy CNPzinc sulfate 220 mg oral capsule (2 sources)Start: 91-13-8806orze 1 capsule by mouth once dailyzinc sulfate (ZINCATE) 220 (50 Zn) MG 220 mg capsule - elemental zinc Take 1 capsule by mouth dailyfor 11 doses 10/27/2024 ActiveStart: 46-59-8221qzkr 1 capsule by mouth once dailyzinc sulfate (ZINCATE) 220 (50 Zn) MG capsule Take 1 capsule by mouth daily for 7 days 7 capsule 0 04/23/2021 Activezolpidem tartrate 10 mg oral tablet (20 sources)gamma-Aminobutyric Acid-ergic AgonistStart: 09-02-2024 End: 49-88-3818xyrl 0.5 tablet by mouth once daily as needed for sleepzolpidem (AMBIEN) 10 MG tablet Indications: Insomnia, unspecified type Take 0.5 tablets by mouth nightly as needed for Sleep for up to 90 days. Max Daily Amount: 5 mg 90 tablet 11/16/2024 02/14/2025 ActiveStart: 07-27-2024 End: 58-39-6415hupw 10 mg by mouth once daily as mg, Oral, NIGHTLY PRN, Starting on Sat08/12/24 at 1527, Until Discontinued, SleepStart: 17-83-0683aszz 1 tablet by mouth at bedtimezolpidem 5 MG tablet Take 5 mg by mouth at bedtime. 0 06/22/2021 ActiveStart: 25-02-9018Ingemj 5 MG Oral Tablet 04/12/2020 Provider: Vahid Nagy CNPStart: 45-07-3351Stvqfz 5 MG Oral Tablet 04/12/2020 Provider: Vahid Nagy CNPStart: 04-29-2018 End: 45-49-2838Mzvkmb 5MG Oral Tablet 04/29/2018 - 06/27/2018 Provider:Start: 02-10-2018 End: 29-59-6334Iqcaec 5 MG OR TABS 02/10/2018 - 02/10/2018 Provider:Start: 08-06-2017 End: 01-83-1295Ldbqvd 5MG OR TABS 08/06/2017 - 08/06/2017 Provider: Completed/Discontinued Medications MedicationDrug Class(es)DatesSig (Normalized)Sig (Original)acetaminophen 325 mg / HYDROcodone bitartrate 5 mg oral tablet (20 sources)Opioid AgonistStart: 01-20-2024 End: 11-60-6239aspb 1 tablet by mouth three times dailyHydrocodone-Acetaminophen Discontinued 1 TAB PO Three times daily January 20, 2024 12:00am January 23, 2024 3:47pmStart: 02-09-2021 End: 24-41-3151LIILNhlbenm-acetaminophen (NORCO) 5-325 MG per tablet 1 tablet Start: 04-12-2019 End: 65-21-0545VSGXMmujgre-acetaminophen (NORCO) 5-325 MG per tablet 2 tablet Start: 08-48-3564xdvibfnzctm-acetaminophen (NORCO) tablet 5-325 mg (STARTER PACK)Start: 04-26-2018 End: 99-27-0580LLNNBinyhng-Acetaminophen 5-325 MG OR TABS 04/26/2018 - 04/26/2018 Provider: Conversion ProviderStart: 59-76-8161glyh 1 tablet by mouth every four hours as neededhydrocodone-acetaminophen 5-325 mg oral tablet 10/10/2017 take 1 tablet (5/325mg) by oral route q 4 hrs prn for pain(M79.606, M54.16) for 7 days changing back to oxycodoneStart: 10-10-2017 End: 54-76-8928ECKNYmapqzy-Acetaminophen 5-325 MG OR TABS 10/10/2017 - 10/10/2017 Provider:Start: 09-11-2017 End: 02-68-5835IAXOErcckfk-Acetaminophen 5-325 MG OR TABS 09/11/2017 - 09/11/2017 Provider:Start: 84-56-7311zlen 1 tablet by mouth every eight hours as needed for painhydrocodone-acetaminophen 5-325 mg oral tablet 09/11/2017 take 1 tablet (5/325mg) by oral route every 8 hours as needed for severe chronic lumbar pain (M79.606, M54.16) for 30 day supplyStart: 08-16-2017 End: 75-08-1621CMGBLcuckna-Acetaminophen 5-325 MG OR TABS 08/16/2017 - 08/16/2017 Provider:Start: 07-29-2017 End: 87-18-9721MPZPOegbizv-Acetaminophen 5-325 MG OR TABS 07/29/2017 - 07/29/2017 Provider:[id number] 200 actuat albuterol 0.09 mg/actuat metered dose inhaler (20 sources)beta2-Adrenergic AgonistStart: 46-10-9946jpyt 2 puff(s) by inhalation three times daily2 puff, Inhalation, 3 TIMES DAILY RESP, First dose (after last modification) on Sat08/12/24 at 1630, Until Discontinued, Initiate RT Bronchodilator Protocol: Yes - Inpatient ProtocolStart: 76-62-3212ycrhnngjp (PROVENTIL HFA;VENTOLIN HFA) 90 mcg/actuation inhaler Take [...] for wheezing 8.5 g 5 02/06/2024 ActiveStart: 64-96-0040hjfy 2 puff(s) by mouth four times daily as neededalbuterol (PROVENTIL HFA;VENTOLIN HFA) 90 mcg/actuation inhaler Take 2 puffs by mouth 4 (four) times a day as needed. 02/06/2024 ActiveStart: 15-44-2196kfrz 2 puff(s) by mouth four times daily for wheezingalbuterol sulfate HFA (PROVENTIL;VENTOLIN;PROAIR) 108 (90 Base) MCG/ACT inhaler inhale 2 puffs by mouth and INTO THE LUNGS four times a day if needed for wheezing 8.5 g 5 08/13/2023 ActiveStart: 27-52-5998tmzq 2.5 mg by inhalation every six hours as needed for wheezing and chronic obstructive pulmonary disease and chronic obstructive pulmonary diseasealbuterol (PROVENTIL,VENTOLIN) 2.5 mg /3 mL (0.083 %) nebulizer solution Indications: Chronic obstructive pulmonary disease, unspecified COPD type ([facility]) Inhale 3 mL (2.5 mg total) by nebulizationevery 6 (six) hours as needed for wheezing. 75 mL 03/18/2024Start: 01-34-3487qaroczrgz (PROVENTIL) (2.5 MG/3ML) 0.083% nebulizer solution Take 3 mLs by nebulization every 6 hours as needed for Wheezing or Shortness of Breath 1 each 5 05/09/2021 ActiveStart: 03-17-20202.5 mg, Nebulization, EVERY 6 HOURS PRN, Wheezing, Starting Jenn 03/17/20 at 2040Start: 12-03-5000pbbxrjrrp (PROVENTIL) nebulizer solution 2.5 mgStart: 04-26-2019 End: 97-71-2885peoamtmrl (PROVENTIL) (2.5 MG/3ML) 0.083% nebulizer solution Take 3 mLs by nebulization every 6 hours as needed for Wheezing 100 vial 0 07/25/2019 ActiveStart: 10-92-6082hjqhdyvvl (PROVENTIL) nebulizer solution 0.63 mgStart: 72-52-0314xjfvatmcm (PROVENTIL) nebulizer solution 2.5 mgStart: 06-09-2018 End: 92-45-0929xdvlfldoq (ACCUNEB) 0.63 MG/3ML nebulizer solution Take 3 mLs by nebulization 3 times daily 270 mL 0 06/09/2018 04/26/2019 Discontinued (Stop Taking at Discharge)Start: 04-29-2018 End: 93-33-4319Xqsqiiuav Sulfate (2.5 MG/3ML)0.083% Inhalation Nebulization solution 06/10/2018 Provider: Vahid Nagy CNPStart: 04-29-2018 End: 00-96-2977IsdQtd HFA 108 (90 Base) MCG/ACT Inhalation Aerosol Solution 04/14/2019 Provider: Vahid Nagy CNPStart: 04-29-2018 End: 32-00-4584BatPbd HFA 108 (90 Base) MCG/ACT Inhalation Aerosol Solution 04/14/2019 Provider: Vahid Nagy CNPStart: 04-26-2018 End: 20-72-3854XELMWVHVG SULFATE 2.5 mg /3 ML (0.0 MISC 04/26/2018 - 04/26/2018 Provider:Start: 04-26-2018 End: 07-98-8636BINZGXMKJ SULFATE 2.5 mg/3 ML (0.0 MIS 04/26/2018 - 04/26/2018 Provider:Start: 81-90-0658fyto 1-2 puff(s) by inhalation every six hours as needed for wheezingProAir HFA 90 mcg/actuation inhalation HFA aerosol inhaler 09/11/2017 inhale 1 - 2 puffs (90 - 180 mcg) by inhalation route every 6 hours as needed for wheezing/ shortness of breathStart: 09-11-2017 End: 10-64-3175LILDLK HFA 90MCG/ACTUAT MISC 09/11/2017 - 09/11/2017 Provider: Start: 19-46-5953merg 1-2 puff(s) by inhalation every six hours as needed for wheezingProAir HFA 90 mcg/actuation inhalation HFA aerosol inhaler 09/11/2017 inhale 1 - 2 puffs (90 - 180 mcg) by inhalation route every 6 hours as needed for wheezing/ shortness of breathStart: 69-29-3937eomi 1-2 puff(s) by inhalation every six hours as needed for wheezingProAir HFA 90 mcg/actuation inhalation HFA aerosol inhaler 09/11/2017 inhale 1 - 2 puffs (90 - 180 mcg) by inhalation route every 6 hours as needed for wheezing/ shortness of breathStart: 12-14-2016 End: 29-96-6380NWAZCOOUE SULFATE 2.5 mg /3 ML (0.0 [facility] 12/14/2016 - 12/14/2016 Provider:Start: 12-14-2016 End: 37-17-2439KFSLRSUPG SULFATE 2.5 mg/3 ML (0.0 [facility] 12/14/2016 - 12/14/2016 Provider:Start: 75-43-9028qjfh 3 mL by inhalation four times daily as needed albuterol sulfate 2.5 mg /3 mL (0.083 %) inhalation solution for nebulization 12/14/2016 inhale 3 milliliters (2.5 mg) by nebulization route 4 times per day as neededStart: 09-08-2016 End: 92-55-5976mfpdegfju (PROVENTIL) (5 MG/ML) 0.5% nebulizer solution Take 0.5 mLs by nebulization every 6 hours as needed for Wheezing 30 vial 0 09/08/2016 04/26/2019 Discontinued (Stop Taking at Discharge)Start: 04-14-2015 End: 70-22-9695UCAEFPCLF SULFATE 2.5 mg /3 ML (0.0 MISC 04/14/2015 - 04/14/2015 Provider:Start: 04-14-2015 End: 56-61-9517GFXYFCFGI SULFATE 2.5 mg/3 ML (0.0 MISC 04/14/2015 - 04/14/2015 Provider:take 2.5 mg by inhalation every two hours as needed for wheezing albuterol (PROVENTIL,VENTOLIN) 2.5 mg /3 mL (0.083 %) nebulizer solution Inhale 3 mL (2.5 mg total)by nebulization every 2 (two) hours as needed for wheezing. Q2hr prn via neb shortness of breath ActiveALCOHOL PREP PADS MISC (20 sources)Start: 12-14-2016 End: 67-03-2550IXPSQVT PREP PADS MISC 12/14/2016 - 12/14/2016 Provider:ALCOHOL PREP PADS MISC (10 sources)Start: 12-14-2016 End: 72-79-5919RANWZVJ PREP PADS MISC 12/14/2016 - 12/14/2016 Provider: ALPRAZolam 0.5 mg oral tablet (20 sources)BenzodiazepineStart: 04-26-2018 End: 03-75-6759SYRBGRcruh 0.5 MG OR TABS 04/26/2018 - 04/26/2018 Provider: Conversion Provider End: 82-90-6413yqakfaudte 0.5 mg oral tablet 12/14/2016Aspir-81 OR TBEC (1 source)Start: 04-26-2018 End: 32-13-2627Tryjf-81 OR TBEC 04/26/2018 - 04/26/2018 Provider: Conversion ProviderAspirin 81 OR TBEC (4 sources)Start: 04-26-2018 End: 21-05-7251Sctkphn 81 OR TBEC 04/26/2018 - 04/26/2018 Provider: Conversion Provideratorvastatin 40 mg oral tablet (20 sources)HMG-CoA Reductase InhibitorStart: 02-25-2018 End: 48-67-6314Nazzrrl 40MG OR TABS 04/26/2018 - 04/26/2018 Provider: Conversion ProviderBD Thermometer Miscellaneous (18 sources)Start: 05-01-2019 End: 87-33-4298LT Thermometer Miscellaneous 05/01/2019 - 09/24/2019 Provider: Vahid Nagy CNPStart: 15-53-0461IT Thermometer Miscellaneous 05/01/2019 Provider: Vahid CASTANEDA Thermometer Miscellaneous (1 source)Start: 05-01-2019 End: 68-45-3622VJ Thermometer Miscellaneous 05/01/2019 - 09/24/2019 Provider: Vahid Nagy CNPbreath-actuated 120 actuat beclomethasone dipropionate 0.08 mg/actuat metered dose inhaler (20 sources)CorticosteroidStart: 04-09-2022 End: 56-01-5322xixs 1 puff(s) by inhalation at bedtimebeclomethasone HFA (QVAR REDIHALER) 80 mcg/actuation inhaler Inhale 1 puff in the morning and at bedtime. 04/09/2022 04/17/2024 Discontinued (Therapy completed)Start: 93-97-9507hrbf 1 puff(s) by inhalation in the morningbeclomethasone (QVAR REDIHALER) 80 MCG/ACT AERB inhaler Indications: Chronic obstructive pulmonary disease, unspecified COPD type (HCC) Inhale 1 puff into the lungs in the morning and 1 puff in the ev ening. 1 each 5 04/09/2022 ActiveStart: 96-58-0040vhzh 1 puff(s) by inhalation twice dailybeclomethasone HFA 80 MCG/ACT Aerosol, Breath Activated inhaler Inhale 1 puff 2 times daily. 0 04/09/2022 ActiveStart: 05-09-2021 End: 15-41-1255mwfo 2 puff(s) by inhalation twice dailybeclomethasone (QVAR) 80 MCG/ACT inhaler Indications: Chronic obstructive pulmonary disease, unspecified COPD type (HCC) Inhale 2 puffs into the lungs 2 times daily 1 each 5 05/09/2021 06/22/2021 Discontinued (LIST CLEANUP)Start: 45-33-7468uvnc 2 puff(s) by inhalation twice dailybeclomethasone (QVAR) 80 MCG/ACT inhaler Indications: Chronic obstructive pulmonary disease, unspecified COPD type (HCC) Inhale 2 puffs into the lungs 2 times daily 1 each 5 03/23/2021 ActiveStart: 07-25-2019 End: 62-07-3372fqbd 1 puff(s) by inhalation twice dailybeclomethasone (QVAR) 80 MCG/ACT inhaler Inhale 1 puff into the lungs 2 times daily 1 Inhaler 3 07/01 ActiveStart: 04-29-2018 End: 95-75-6176Rism RediHaler 80MCG/ACT Inhalation Aerosol Breath Activated 09/30/2018 Provider: Vahid Nagy CNPStart: 08-09-2017 End: 72-72-1287EPWT 80MCG/ACTUAT MISC 08/09/2017 - 08/09/2017 Provider:Start: 72-63-8565ekcl 1 puff(s) by inhalation twice dailyQvar 80 mcg/actuation inhalation aerosol 08/09/2017 inhale 1 puff (80 mcg) by inhalation route 2 times per dayStart: 62-47-7793jpqt 1 puff(s) by inhalation twice dailyQvar 80 [...] (20 sources)Angiotensin Converting Enzyme InhibitorStart: 01-12-2021 End: 13-02-7630nodayxnqpn (LOTENSIN) 40 MG tabletStart: 04-26-2018 End: 71-47-7500VSOSCPIRNL 10 mg MISC 04/26/2018 - 04/26/2018 Provider:Start: 12-14-2016 End: 03-02-0440DBZTSQRGUV 10 mg MISC 12/14/2016 - 12/14/2016 Provider:Start: 86-67-1451iicu 1 tablet by mouth once dailybenazepril 10 mg oral tablet 12/14/2016 take 1 tablet (10 mg) by oral route once dailyBlood Pressure Cuff (11 sources)Start: 16-40-4076Btgdx Pressure Cuff miscellaneous misc 08/14/2017 use as directed to monitor blood pressure (Dx I10)BLOOD PRESSURE CUFF MISC (20 sources)Start: 08-14-2017 End: 21-21-3928RZJRW PRESSURE CUFF MISC 08/14/2017 - 08/14/2017 Provider:BLOOD PRESSURE CUFF MISC (5 sources)Start: 08-14-2017 End: 53-91-4983ZKSBR PRESSURE CUFF MISC 08/14/2017 - 08/14/2017 Provider:Blood Pressure Cuff Miscellaneous (20 sources)Start: 04-29-2018 End: 13-01-0062Iuzle Pressure Cuff Miscellaneous 04/29/2018 - 09/24/2019 Provider:Start: 34-31-4374Mrrlj Pressure Cuff Miscellaneous 04/29/2018 Provider: Blood Pressure Cuff Miscellaneous (5 sources)Start: 04-29-2018 End: 43-73-5093Dsude Pressure Cuff Miscellaneous 04/29/2018 - 09/24/2019 Provider:Start: 19-79-9969Hndcx Pressure Cuff Miscellaneous 04/29/2018 Provider: 60 actuat budesonide 0.16 mg/actuat / formoterol fumarate 0.0045 mg/actuat metered dose inhaler (13 sources)Corticosteroid, beta2-Adrenergic AgonistStart: 19-65-6346rszh 2 puff(s) by mouth twice daily2 puff, Inhalation, 2 TIMES DAILY, First dose on Sat08/12/24 at 2100, Until Discontinued, Rinse mouth out with water (without swallowing) after every dose.Start: 15-22-6949cenc 2 puff(s) by mouth twice daily2 puff, Inhalation, 2 TIMES DAILY RESP, First dose on Sat08/06/24 at 2000, Until Discontinued, [place] out with water (without swallowing) after every dose.Start: 59-55-4349mdde 2 puff(s) by inhalation in the morningbudesonide- formoteroL (SYMBICORT) 160-4.5 mcg/actuation inhaler Inhale 2 puffs in the morning and 2puffs before bedtime. 02/06/2024Start: 53-88-5212uvmp 2 puff(s) by inhalation in the morningbudesonide-formoteroL (SYMBICORT) 160-4.5 mcg/actuation inhaler Inhale 2 puffs in the morning and 2puffs before bedtime. 02/06/2024 SuspendedStart: 36-63-2275usmf 2 puff(s) by inhalation twice dailybudesonide- formoterol (SYMBICORT) 160-4.5 MCG/ACT AERO Indications: COPD with acute exacerbation (HCC) Inhale 2 puffs into the lungs 2 times daily 10.2 g 3 02/06/2024 ActiveStart: 40-88-3780biqd 2 puff(s) by inhalation in the morning budesonide-formoteroL (SYMBICORT) 160-4.5 mcg/actuation inhaler Inhale 2 puffs in the morning and 2puffs before bedtime. 02/06/2024 ActiveStart: 30-12-4730acac 2 puff(s) by inhalation twice dailybudesonide-formoterol (SYMBICORT) 160-4.5 MCG/ACT AERO Inhale 2 puffs into the lungs 2 times daily 10.2 g 3 08/13/2023 ActiveCALCIUM 600 600 mg calcium (1,500 MG) MISC (20 sources)Start: 08-16-2017 End: 66-57-7499JRPEALB 600 600 mg calcium (1,500 MG) MISC 08/16/2017 - 08/16/2017 Provider:CALCIUM 600 600 mg calcium (1,500 MG) MISC (1 source)Start: 08-16-2017 End: 50-48-9342GIDAVEA 600 600 mg calcium (1,500 MG) MISC 08/16/2017 - 08/16/2017 Provider:calcium carbonate 1500 mg oral tablet (17 sources)Start: 37-06-6852diuc 1 tablet by mouth twice dailyCalcium 600 600 mg calcium (1,500 mg) oral tablet 08/16/2017 take 1 tablet by oral route twice dailyCalcium Carbonate-Vit D-Min (CALCIUM 1200 PO) (2 sources)Start: 08-16-2017 End: 96-12-4090Geansfw Carbonate-Vit D-Min (CALCIUM 1200 PO) Take by mouth 08/16/2017 08/06/2024 Discontinued (LIST CLEANUP)Start: 32-65-2344Buzocgc Carbonate-Vit D-Min (CALCIUM 1200 PO) Take by mouth 08/16/2017 Activecefdinir 300 mg oral capsule (20 sources)Cephalosporin AntibacterialStart: 03-20-2019 End: 19-04-0358Ibbqtmxd 300 MG Oral Capsule 03/20/2019 - 03/20/2019 Provider: Vahid Vasqueztirizine hydrochloride 10 mg oral tablet (20 sources)Histamine-1 Receptor AntagonistStart: 08-27-2018 End: 31-07-9202FukWKI Allergy 10 MG Oral Tablet 12/11/2018 - 07/09/2019 Provider: Vahid Nagy CNPChantix Starting Month Box (1 source)Start: 93-55-3508Ohicucx Starting Month Box 0.5 mg (11)- 1 mg (42) oral tablets,dose pack 03/26/2018 take as directedCHANTIX STARTING MONTH BOX 0.5 mg (11)- 1 MG (42) MISC (20 sources)Start: 03-26-2018 End: 41-05-8267QDEJKSF STARTING MONTH BOX 0.5 mg (11)- 1 MG (42) MISC 03/26/2018 - 03/26/2018 Provider:CHANTIX STARTING MONTH BOX 0.5 mg (11)- 1 MG (42) MISC (1 source)Start: 03-26-2018 End: 36-87-9863YJTWUYJ STARTING MONTH BOX 0.5 mg (11)- 1 MG (42) MISC 03/26/2018 - 03/26/2018 Provider:Chantix Starting Month Box 0.5 mg (11)- 1 mg (42) oral tablets,dose pack (1 source)Start: 27-71-9165Tolsvry Starting Month Box 0.5 mg (11)- 1 mg (42) oral tablets,dose pack 03/26/2018 take as directedCHANTIX STARTING MONTH BOX 0.5 mg (11)-1 MG (42) MISC (4 sources)Start: 03-26-2018 End: 05-32-0369TOJSSPB STARTING MONTH BOX 0.5 mg (11)-1 MG (42) MISC 03/26/2018 - 03/26/2018 Provider:CHANTIX STARTING MONTH BOX 0.5 mg (11)-1 MG (42) MISC (4 sources)Start: 03-26-2018 End: 91-03-6589DJLHBSH STARTING MONTH BOX 0.5 mg (11)-1 MG (42) [facility] 03/26/2018 - 03/26/2018 Provider:chlorhexidine gluconate 1.2 mg/ml mouthwash (6 sources)Start: 35-16-1988hing 15 mL by mouth twice daily15 mL, Mouth/Throat, 2 TIMES DAILY, First dose on Sat08/12/24 at 2100, Until Discontinued, Rinse and spit. Do not swallow.Start: 68-74-7528ixva 15 mL by mouth twice daily15 mL, Mouth/Throat, 2 TIMES DAILY, First dose on Jenn 08/06/24 at 2100, Until Discontinued, Rinse andspit. Do not swallow.Start: 62-99-1585cdjm 15 mL by mouth twice dailychlorhexidine (PERIDEX) 0.12 % solution Indications: Mouth sore swish and spit 15ml BY MOUTH TWICE DAILY 473 mL 07/22/2024 ActiveStart: 07-18-2019 End: 67-03-6686zqyufobddmydv (PERIDEX) 0.12 % solution 15 mLchlorpheniramine maleate 4 mg oral tablet (20 sources)Histamine-1 Receptor AntagonistStart: 04-29-2018 End: 13-46-6343Rmwnr-Trimeton 4MG Oral Tablet 04/29/2018 - 04/29/2018 Provider: Start: 01-20-2018 End: 75-70-1755Hbmby-Trimeton 4MG OR TABS 01/20/2018 - 01/20/2018 Provider: cilostazol 100 mg oral tablet (20 sources)Phosphodiesterase 3 InhibitorStart: 04-26-2018 End: 55-07-0713Ounjuthvbs 100 MG OR TABS 04/26/2018 - 04/26/2018 Provider: Conversion ProviderStart: 04-14-2015 End: 34-81-1010Wyagfvvrmv 100MG OR TABS 04/14/2015 - 04/14/2015 Provider:200 ml ciprofloxacin 2 mg/ml injection (8 sources)Quinolone AntimicrobialStart: 07-19-2021 End: 95-96-0735mutbrsusqtihc (CIPRO) 400 mg in dextrose 5% premix IVPBStart: 95-36-2179Vyrwa 250 MG Oral Tablet 11/16/2019 Provider: Vahid Nagy CNPStart: 07-23-2019 End: 44-13-8549lwmuyxukvvonw (CIPRO) tablet 500 mgStart: 07-20-2019 End: 67-57-2431cqarohknnmfqv (CIPRO) IVPB 400 mgStart: 60-29-6154Xjvse 250MG Oral Tablet 09/30/2018 Provider: Vahid Nagy CNPclindamycin (20 sources)Lincosamide AntibacterialStart: 09-18-2017 End: 70-74-8241PTAHIPYYSDU HCL 300 MG MISC 09/18/2017 - 09/18/2017 Provider: Start: 09-18-2017 End: 50-17-5096KPQCMMTZAQM HCL 300MG MISC 09/18/2017 - 09/18/2017 Provider: Start: 09-18-2017 End: 26-80-1491krjs 1 capsule by mouth twice dailyclindamycin HCl 300 mg oral capsule 09/18/2017 09/25/2017 take 1 capsule (300 mg) by oral route 2 times per day for 7 dayscloNIDine hydrochloride 0.1 mg oral tablet (20 sources)Central alpha-2 Adrenergic AgonistStart: 04-26-2018 End: 49-16-6729tnzVDJolc HCl 0.1 MG OR TABS 04/26/2018 - 04/26/2018 Provider: Conversion ProviderStart: 04-14-2015 End: 82-66-9927nquNXXkep HCl 0.1MG OR TABS 04/14/2015 - 04/14/2015 Provider: clopidogrel 75 mg oral tablet (20 sources)P2Y12 Platelet InhibitorStart: 01-19-2024 End: 98-66-0384fiys 1 tablet by mouth once dailyClopidogrel (Plavix) 75 mg tablet Discontinued 75 MG PO Daily January 19, 2024 12:00am January 23, 2024 3:47pmStart: 15-16-4803cime 1 tablet by mouth in the morningclopidogreL (PLAVIX) 75 mg tablet Take 1 tablet (75 mg total) by mouth in the morning. 30 tablet 09/26/2022 SuspendedStart: 94-87-2616olgd 1 tablet by mouth once daily clopidogrel 75 MG tablet Take 75 mg by mouth daily. 0 06/22/2021 ActiveStart: 31-36-9318mdmk 1 tablet by mouth once dailyclopidogrel (PLAVIX) 75 MG tablet TAKE ONE TABLET BY MOUTH DAILY 90 tablet 3 05/31/2020 ActiveStart: 07-26-2019 End: 74-17-1678ftvr 1 tablet by mouth once dailyclopidogrel (PLAVIX) 75 MG tablet Take 1 tablet by mouth daily 30 tablet 3 07/26/2019 ActiveStart: 04-29-2018 End: 40-28-3042efjv 75 mg by mouth once daily75 mg, Oral, DAILY, First dose on Sat04/22/19 at 0900Start: 02-24-2018 End: 36-91-7530Tanmog 75MG OR TABS 04/26/2018 - 04/26/2018 Provider: Parker Lovelace Nicotine 14MG/24HR Transdermal Patch 24 Hour (20 sources)Start: 07-28-2018 End: 11-67-0665XNH Nicotine 14MG/24HR Transdermal Patch 24 Hour 07/28/2018 - 09/24/2019 Provider: Vahid Nagy CNPStart: 47-80-8747MAY Nicotine 14MG/24HR Transdermal Patch 24 Hour 07/28/2018 Provider: Vahid DOMINGUEZ Nicotine 14MG/24HR Transdermal Patch 24 Hour (1 source)Start: 07-28-2018 End: 93-25-8116JSQ Nicotine 14MG/24HR Transdermal Patch 24 Hour 07/28/2018 - 09/24/2019 Provider: Vahid DOMINGUEZ Nicotine 21MG/24HR Transdermal Patch 24 Hour (20 sources)Start: 06-27-2018 End: 46-42-5415CJQ Nicotine 21MG/24HR Transdermal Patch 24 Hour 06/27/2018 - 07/28/2018 Provider: Vahid DOMINGUEZ Nicotine 21MG/24HR Transdermal Patch 24 Hour (2 sources)Start: 06-27-2018 End: 76-86-0846PJS Nicotine 21MG/24HR Transdermal Patch 24 Hour 06/27/2018 - 07/28/2018 Provider: Vahid Nagy CNPStart: 62-79-8842CTO Nicotine 21MG/24HR Transdermal Patch 24 Hour 06/27/2018 Provider: Vahid Campbellamethasone phosphate 10 mg/ml injectable solution (20 sources)CorticosteroidStart: 11-19-2024 End: 56 mg, IntraVENous, ONCE, On Sat11/19/24 at 1400, For 1 doseStart: 12-14-2016 End: 45-50-3050Bjvvxygknpzpp 4MG OR TABS 12/14/2016 - 12/14/2016 Provider: dextromethorphan hydrobromide 3 mg/ml / promethazine hydrochloride 1.25 mg/ml oral solution (20 sources)Phenothiazine, Uncompetitive Z-hrgqkh-G-aspartate Receptor Antagonist, Sigma-1 AgonistStart: 05-20-2019 End: 20-38-9385Chqdxomagtwj-DM 6.25-15 MG/5ML Oral Syrup 06/17/2019 - 07/09/2019 Provider: Vahid Nagy CNPStart: 05-01-2019 End: 55-74-2647Bkiqugpsynfj-DM 6.25-15 MG/5ML Oral Syrup 05/01/2019 - 05/01/2019 Provider: Vahid Nagy CNPdiazePAM 5 mg oral tablet (1 source)BenzodiazepineStart: 06-15-2019 End: 55-73-1074srtjhIRE (VALIUM) tablet 5 mgdiclofenac sodium 0.01 mg/mg topical gel (3 sources)Nonsteroidal Anti-inflammatory DrugStart: 03-23-2021 End: 63-16-9466bvhebwojgx sodium (VOLTAREN) 1 % GEL Indications: Chronic pain of right knee , Chronic right hip pain , Sacral pain , Lumbar back pain with radiculopathy affecting right lower extremity Apply 4 g topically 4 times daily 350 g 0 03/23/2021 06/22/2021 Discontinued (LIST CLEANUP)DULoxetine (20 sources)Serotonin and Norepinephrine Reuptake InhibitorStart: 12-14-2016 End: 46-64-5604UXVXCWHCJL 60 MG [facility] [place] 12/14/2016 - 12/14/2016 Provider:Start: 12-14-2016 End: 63-68-6637TMPHBNPEBU 60MG [facility] [place] 12/14/2016 - 12/14/2016 Provider:Start: 15-01-3653zdop 1 capsule by mouth once dailyduloxetine 60 mg oral capsule,delayed release(DR/EC) 12/14/2016 take 1 capsule (60 mg) by oral route once daily2 ml famotidine 10 mg/ml injection (4 sources)Histamine-2 Receptor AntagonistStart: 01-17-2021 End: 03-44-2266zngvijhorj (PEPCID) injection 20 mgStart: 07-22-2019 End: 31-06-3096tqkcfeyfjz (PEPCID) tablet 20 mgStart: 07-18-2019 End: 33-49-0241eahcotufbr (PEPCID) injection 20 mgStart: 76-23-4364gygs 20 mg by mouth twice daily20 mg, Oral, 2 TIMES DAILY, [place]04/[place] [address] ml fentaNYL 0.05 mg/ml injection (2 sources)Opioid AgonistStart: 07-20-2019 End: 49-74-9724dljsyUMS (SUBLIMAZE) injection 50 mcgStart: 07-18-2019 End: 79-96-6686vtqxoRHU (SUBLIMAZE) injection 50 mcgfentaNYL 20 mcg/mL Infusion (1 source)Start: 07-18-2019 End: 54-11-7028yjoeaAIM 20 mcg/mL Infusion2 ml furosemide 10 mg/ml injection (18 sources)Loop DiureticStart: 12-31-2024 End: 76-65-264026 mg, intravenous, Once, On [facility] 12/31/24 at 1515, For 1 dose, Look-alike/sound-alike medication - verify indication for use. IVP rate = 20 mg/minStart: 02-06-2024 End: 69-90-5542jscr 20 mg by mouth once daily20 mg, oral, Daily, First dose on [facility] 12/31/24 at 0900, Look-alike/sound-alike medication - verify indication for use.Start: 70-92-6634vbwq 1 tablet by mouth once dailyfurosemide (LASIX) 20 MG tablet Indications: Primary hypertension take 1 tablet by mouth once daily90 tablet 1 10/02/2023 ActiveStart: 30-91-4875xbza 1 tablet by mouth once daily furosemide (LASIX) 20 MG tablet Take 1 tablet by mouth daily 30 tablet 0 05/09/2021 ActiveStart: 57-46-4397pgew 1 tablet by mouth once dailyfurosemide (LASIX) 20 MG tablet Take 1 tablet by mouth daily 30 tablet 0 03/19/2021 Active Start: 07-07-9822pigjatanxs (LASIX) injection 40 mgStart: 03-13-2020 End: 00-97-5422jlaa 1 tablet by mouth twice dailyfurosemide (LASIX) 20 MG tablet Take 1 tablet by mouth 2 times daily 8 tablet 0 03/13/2020 03/17/2020 Discontinued (Therapy completed)Start: 07-19-2019 End: 84-02-4652cqvwthyzfh (LASIX) injection 40 mgStart: 07-17-2019 End: 12-65-7906spgkuthgzo (LASIX) injection 40 mgINCONTINENCE BRIEFS 100 MISC (20 sources)Start: 01-28-2017 End: 06-25-0447ZFPSHDSZRURO BRIEFS 100 MISC 01/28/2017 - 01/28/2017 Provider: INCONTINENCE BRIEFS 100 MISC (5 sources)Start: 01-28-2017 End: 23-32-0729ZKAYFVTLYGHT BRIEFS 100 MISC 01/28/2017 - 01/28/2017 Provider: Incontinence Pads (17 sources)Start: 31-32-9020Itzjhflzwxal Pads 08/14/2017 Use for incontinence (dx: R35.1, N30.1)Start: 69-37-3884Yyghzaraitcq Pads 08/14/2017 Use for incontinence (dx: R35.1, N30.1)INCONTINENCE PADS 100 MISC (20 sources)Start: 07-30-2017 End: 94-99-4550YYTIAZJSXINZ PADS 100 MISC 07/30/2017 - 07/30/2017 Provider: Start: 01-28-2017 End: 90-47-8963GDHHEZOUOSPH PADS 100 MISC 01/28/2017 - 01/28/2017 Provider: INCONTINENCE PADS 100 MISC (10 sources)Start: 07-30-2017 End: 01-71-4738SYYKGNKKKBFJ PADS 100 MISC 07/30/2017 - 07/30/2017 Provider: Start: 01-28-2017 End: 42-29-1385JSTNDGIZQPZI PADS 100 MISC 01/28/2017 - 01/28/2017 Provider: INCONTINENCE PADS MISC (20 sources)Start: 08-14-2017 End: 59-77-1922KKTPUZFUVBEA PADS MISC 08/14/2017 - 08/14/2017 Provider: INCONTINENCE PADS MISC (5 sources)Start: 08-14-2017 End: 89-82-3242EVCKBNCARRIY PADS MISC 08/14/2017 - 08/14/2017 Provider:iohexoL (OMNIPAQUE) 350 mg iodine/mL injection 100 mL (1 source)Start: 12-30-2024 End: mL, intravenous, Once in imaging, contrast, Starting on Sat12/30/24 at 1547, For 1 dose, VESICANT (RED)Iopamidol (2 sources)Radiographic Contrast AgentStart: 04-12-2019 End: 09-62-7904sforjntvs (ISOVUE-370) 76 % injection 75 mLStart: 02-23-2019 End: 91-78-6027dyohkkfzo (ISOVUE-370) 76 % injection 120 mLiopamidol (ISOVUE- 370) 76 % injection 100 mL (1 source)Start: 08-06-2024 End: 41-37-1412gnju 1 dose intravenously ngkt779 mL, IntraVENous, IMG ONCE PRN, 1 dose, Starting on Jenn 08/06/24 at 1602, Until Jenn 08/06/24 at 1607, Otheriopamidol (ISOVUE-370) 76 % injection 18 mL (2 sources)Start: 01-04-2022 End: 51-04-3171xdrogkvhu (ISOVUE-370) 76 % injection 18 mLStart: 06-20-2021 End: 85-59-1054uwtqzyaox (ISOVUE-370) 76 % injection 18 mLiopamidol (ISOVUE-370) 76 % injection 70 mL (1 source)Start: 03-17-2020 End: 01-39-9894vajfohizu (ISOVUE-370) 76 % injection 70 mLiopamidol (ISOVUE-370) 76 % injection 75 mL (7 sources)Start: 01-04-2022 End: 83-03-3819qtbjjfrak (ISOVUE-370) 76 % injection 75 mLStart: 06-20-2021 End: 78-37-5358qolgwrrsp (ISOVUE-370) 76 % injection 75 mLStart: 03-17-2021 End: 62-80-6697xzoavlhcv (ISOVUE-370) 76 % injection 75 mLStart: 12-04-2020 End: 41-92-3839aldlfvwyj (ISOVUE-370) 76 % injection 75 mLStart: 10-06-2019 End: 93-71-6189cezipuskv (ISOVUE-370) 76 % injection 75 mLStart: 07-17-2019 End: 98-15-5810ciosmhkzm (ISOVUE-370) 76 % injection 75 mLStart: 04-21-2019 End: 40-82-1364nspqvxnbb (ISOVUE-370) 76 % injection 75 mLisopropyl alcohol 0.7 ml/ml medicated pad (17 sources)Start: 05-05-4157Lellrwu Prep Pads topical pads, medicated 12/14/2016 use for blood sugar testing TID (dx: E11.9)24 hr isosorbide mononitrate 60 mg extended release oral tablet (20 sources)Nitrate VasodilatorStart: 73-75-5525brgu 30 mg by mouth once daily30 mg, Oral, DAILY, First dose (after last modification) on Sat08/09/24 at 0900, Until Discontinued, Do not crush or chew.Start: 02-06-2024 End: 18-43-5049uhza 60 mg by mouth once daily60 mg, Oral, DAILY, First dose on Sat08/12/24 at 1545, Until Discontinued, Do not crush or chew.Start: 01-19-2024 take 60 mg by mouth once dailyIsosorbide Mononitrate Active 60 MG PO Daily January 19, 2024 12:00amStart: 22-17-9685ifzh 1 tablet by mouth once daily isosorbide mononitrate (IMDUR) 60 MG extended release tablet Indications: Primary hypertension Take1 tablet by mouth daily 90 tablet 10/18/2023 Active Start: 05-04-2019 End: 51-27-9551iwqm 1 tablet by mouth once dailyisosorbide mononitrate (IMDUR) 30 MG extended release tablet Take 1 tablet by mouth daily 30 tablet3 07/25/2019 Active1 ml ketorolac tromethamine 30 mg/ml cartridge (20 sources)Nonsteroidal Anti-inflammatory Drug, Cyclooxygenase InhibitorStart: 07-29-2022 End: 56-13-5558diipnglum (TORADOL) injection 30 mgStart: 45-76-3217Ajfedyunh Tromethamine 60 MG/2ML IM SOLN 01/12/2019 Elena Malik CNPComment on above: Patient tolerated therapy well. No signs or symptoms of adverse reactions. lancets (11 sources)Start: 03-60-4936fbvemii 30 gauge miscellaneous [facility] [place]/14/2016 use for blood sugar testing TID (dx: E11.9)loratadine 10 mg oral tablet (20 sources)Start: 12-27-2017 End: 01-81-3176Qcrqcrym 10MG OR TABS 12/27/2017 - 12/27/2017 Provider:metFORMIN hydrochloride 500 mg oral tablet (6 sources)BiguanideStart: 07-16-2024 End: 06-71-0822fdfa 500 mg by mouth twice daily at afhztwiz236 mg, Oral, 2 TIMES DAILY WITH MEALS, First dose on Sat08/12/24 at 1700, Until Discontinued1 ml morphine sulfate 4 mg/ml injection (4 sources)Opioid AgonistStart: 11-19-2024 End: 45-43-8052jdnf 1 dose by mouth every hour4 mg, IntraVENous, ONCE, 1 dose, On Jenn 11/19/24 at 1315, If oral and IV narcotics ordered, use oralfirst and only use IV if oral is ineffective or cannot take oral. Do Not give oral and IV within 1 hour of each other unless specifically ordered.Start: 01-12-2021 End: 29-53-9650thziijdu injection 4 mgStart: 12-04-2020 End: 41-33-5385bctrzsbk injection 4 mgStart: 02-23-2019 End: 03-17-9066mqhiizps (PF) injection 2 mgmultivitamin 1 tablet (1 source)Start: 38-69-3864juch 1 tablet by mouth once daily1 tablet, Oral, DAILY, First dose on 08/15/24 at 0900, Until Discontinued1 ml naloxone hydrochloride 0.4 mg/ml injection (20 sources)Opioid AntagonistStart: 10-07-2019 End: 46-01-7177nlytmdlp (NARCAN) injection 0.4 mgStart: 07-17-2019 End: 12-31-4898qcvuubpp (NARCAN) injection 1 mgStart: 61-32-5483Zisrub 4MG/0.1ML Nasal Liquid 07/28/2018 Provider: Vahid Nagy CNPnitrofurantoin, macrocrystals 25 mg / nitrofurantoin, monohydrate 75 mg oral capsule (9 sources)Nitrofuran AntibacterialStart: 09-23-2019 End: 98-47-7846Kiwkuiur 100 MG Oral Capsule 09/23/2019 - 09/24/2019 Provider: Vahid Nagy CNPNitrostat 0.4MG SL SUBL (8 sources)Start: 04-26-2018 End: 80-07-0925Suxsetwmy 0.4MG SL SUBL 04/26/2018 - 04/26/2018 Provider: Conversion ProviderStart: 02-24-2018 End: 95-53-2477Citkonjew 0.4MG SL SUBL 02/24/2018 - 02/24/2018 Provider:Start: 12-14-2016 End: 24-58-5795Agxjipduf 0.4MG SL SUBL 12/14/2016 - 12/14/2016 Provider:Start: 04-14-2015 End: 05-88-3526Oqovdpcay 0.4MG SL SUBL 04/14/2015 - 04/14/2015 Provider:normal saline (20 sources)Start: 08-16-2017 End: 28-43-6765RRXVDV SOLUTION MISC 08/16/2017 - 08/16/2017 Provider:Start: 17-02-7602Mjcbso Solution miscellaneous solution 08/16/2017 use as directed to clean out wound prior to packingnystatin 628783 unt/ml topical cream (1 source)Polyene AntifungalStart: 02-22-2021 End: 99-09-8046hjuyajwi (MYCOSTATIN) 477398 UNIT/GM cream Apply topically 2 times daily. 15 g 1 02/22/2021 03/17/2021 Discontinued (LIST CLEANUP)2 ml orphenadrine citrate 30 mg/ml injection (1 source)Muscle RelaxantStart: 11-19-2024 End: 94-13-569961 mg, IntraVENous, ONCE, 1 dose, On Jenn 11/19/24 at 1400oxyCODONE hydrochloride 5 mg oral tablet (3 sources)Opioid AgonistStart: 08-06-2024 End: 78-70-3051wwha 1 dose by mouth once2.5 mg, Oral, Once, 1 dose, On Jenn 08/06/24 at 2045Start: 15-20-5393swub 1 tablet by mouth every four hours as needed for painoxyCODONE (ROXICODONE) 5 mg immediate release tablet Indications: Hypertensive emergency Take 1 tablet (5 mg total) by mouth every 4 (four) hours as needed for pain for up to 10 doses. Max Daily Amount: 30 mg 10 tablet 11/17/2022 Suspendedpenicillin v potassium 500 mg oral tablet (20 sources)Start: 11-26-2017 End: 71-07-1604Vtjxfchymd V Potassium 500MG OR TABS 11/26/2017 - 11/26/2017 Provider:Start: 10-29-2017 End: 73-71-4602Ifjasapwzz V Potassium 500MG OR TABS 10/29/2017 - 10/29/2017 Provider:piperacillin-tazobactam (ZOSYN) 3,375 mg in dextrose 5 % 50 mL IVPB (mini-bag) (1 source)Start: 03-17-2021 End: 05-17-3761lleokajithsy-tazobactam (ZOSYN) 3,375 mg in dextrose 5 % 50 mL IVPB (mini-bag)piperacillin-tazobactam (ZOSYN) 3,375 mg in sodium chloride 0.9 % 50 mL IVPB (Cigg3Gcq) (2 sources)Start: 08-12-2024 End: ,375 mg, IntraVENous, at 100 mL/hr, Administer over 30 Minutes, ONCE, On Sat08/12/24 at 1130, For 1 dose, Use 20mm (Blue) Kpei6Okv Adapter Preparation instructions: Attach medication vial to one 20mm (Blue) Rbyy6Qyn adapter. Rai fluid bag with adapter, mix, and administer per order.Start: 08-06-2024 End: ,375 mg, IntraVENous, at 12.5 mL/hr, Administer over 240 Minutes, EVERY 8 HOURS, First dose on Sat08/06/24 at 2200, For 7 days, Use 20mm (Blue) Yayv9Ape Adapter Preparation instructions: Attach medication vial to one 20mm (Blue) Qbax2Qul adapter. Rai fluid bag with adapter, mix, and administer per order.pravastatin sodium 20 mg oral tablet (20 sources)HMG-CoA Reductase InhibitorStart: 26-26-2897uolm 40 mg by mouth once daily40 mg, Oral, DAILY, First dose on Sat08/12/24 at 1545, Until Discontinued Start: 96-89-6478xcpu 40 mg by mouth once daily40 mg, Oral, NIGHTLY, First dose on Sat08/06/24 at 2100, Until DiscontinuedStart: 56-71-3099cais 1 tablet by mouth once dailypravastatin (PRAVACHOL) 40 MG tablet Indications: Hyperlipidemia, unspecified hyperlipidemia type Take 1 tablet by mouth daily 90 tablet 1 02/06/2024 ActiveStart: 10-64-2961lwqc 1 tablet by mouth once dailypravastatin (PRAVACHOL) 40 MG tablet Indications: Hyperlipidemia, unspecified hyperlipidemia type Take 1 tablet by mouth daily 90 tablet 06/10/2023 ActiveStart: 05-09-2021 take 1 tablet by mouth once dailypravastatin (PRAVACHOL) 40 MG tablet Indications: Hyperlipidemia, unspecified hyperlipidemia type Take 1 tablet by mouth daily 90 tablet 0 11/30/2021 ActiveStart: 71-42-0299rxim 1 tablet by mouth once dailypravastatin (PRAVACHOL) 40 MG tablet Indications: Hyperlipidemia, unspecified hyperlipidemia type Take 1 tablet by mouth daily 90 tablet 0 03/23/2021 ActiveStart: 84-94-8384vlbe 40 mg by mouth once daily40 mg, Oral, DAILY, First dose on Sat03/18/20 at 1430Start: 90-39-2822Olhdlbryj 40 MG Oral Tablet 02/03/2020 Provider: Vahid Nagy CNPStart: 04-26-2018 End: 54-11-7517INJPPYNIDHO 40 MG MISC 04/26/2018 - 04/26/2018 Provider:Start: 04-26-2018 End: 05-88-0098LXAFDPXXINR 40MG MISC 04/26/2018 - 04/26/2018 Provider:Start: 04-14-2015 End: 26-16-8257FNCHSLBRXRZ 40 MG MISC 04/14/2015 - 04/14/2015 Provider:Start: 04-14-2015 End: 39-23-7254VNHMMGULUZI 40MG MISC 04/14/2015 - 04/14/2015 Provider:Start: 04-14-2015 End: 27-29-3981ajnp 1 tablet by mouth once dailypravastatin 40 mg oral tablet 04/14/2015 12/14/2016 take 1 tablet (40 mg) by oral route once dailypregabalin 150 mg oral capsule (20 sources)Start: 01-19-2024 End: 57-97-3533ypos 1 capsule by mouth twice dailyPregabalin (Lyrica) 150 mg capsule Discontinued 150 MG PO Twice daily January 20, 2024 12:00am January 23, 2024 3:47pmStart: 12-27-2021 End: 28-86-6483zynv 1 capsule by mouth twice dailypregabalin (LYRICA) 150 MG capsule Indications: Chronic right hip pain , Chronic pain of right knee, Sacral pain , Lumbar back pain with radiculopathy affecting right lower extremity take 1 capsule by mouth twice a day 60 capsule 0 12/27/2021 01/26/2022 ActiveStart: 47-43-4808aheg 1 capsule by mouth twice dailypregabalin 75 MG capsule Take 1 capsule by mouth 2 times daily. 0 06/22/2021 ActiveStart: 03-23-2021 End: 53-81-6426shvk 1 capsule by mouth twice dailypregabalin (LYRICA) 75 MG capsule Indications: Chronic pain of right knee , Chronic right hip pain , Sacral pain , Lumbar back pain with radiculopathy affecting right lower extremity Take 1 capsule by mouth 2 times daily for 30 days. 60 capsule 0 04/20/2021 ActiveStart: 45-56-9655Iesfqu 75 MG Oral Capsule 04/12/2020 Provider: Start: 41-94-4435Eodvga 75 MG Oral Capsule 04/12/2020 Provider:Start: 03-18-2020 pregabalin (LYRICA) capsule 50 mgStart: 40-12-3107xsxligqqik (LYRICA) capsule 75 mgpregabalin (LYRICA) 100 mg capsule Take 150 mg by mouth in the morning and 150 mg before bedtime. Suspended End: 46-56-2810uiwedquxwt (LYRICA) 50 MG capsule Take 30 mg by mouth 2 times daily. 0 03/17/2021 Discontinued (LIST CLEANUP)PROAIR HFA 90 MCG/ACTUAT MISC (20 sources)Start: 09-11-2017 End: 99-32-6325PYVBJX HFA 90 MCG/ACTUAT MISC 09/11/2017 - 09/11/2017 Provider: PROAIR HFA 90 MCG/ACTUAT MISC (1 source)Start: 09-11-2017 End: 67-77-1284YNVGZL HFA 90 MCG/ACTUAT MISC 09/11/2017 - 09/11/2017 Provider: 100 ml propofol 10 mg/ml injection (1 source)General AnestheticStart: 07-18-2019 End: 47-16-4184zhkocmfm injectionpt unable to verify home meds at this time (2 sources)Start: 01-19-2024 End: 24-00-6249vj unable to verify home meds at this time Discontinued January 19, 2024 12:00am January 20, 2024 4:55pmStart: 16-75-9246ln unable to verify home meds at this time Active January 19, 2024 12:00amQVAR 80 MCG/ACTUAT MISC (20 sources)Start: 08-09-2017 End: 55-25-8665AYOY 80 MCG/ACTUAT MISC 08/09/2017 - 08/09/2017 Provider:QVAR 80 MCG/ACTUAT MISC (1 source)Start: 08-09-2017 End: 68-61-6921YHRC 80 MCG/ACTUAT MISC 08/09/2017 - 08/09/2017 Provider: regadenoson (LEXISCAN) injection 0.4 mg (1 source)Start: 09-16-2019 End: 65-19-7593vnlcojwupra (LEXISCAN) injection 0.4 mgsimethicone in sterile water 80 mg/1000 mL irrigation 1 Application (2 sources)Start: 07-19-2021 End: 35-41-7897pagzayuaupm in sterile water 80 mg/1000 mL irrigation 1 Applicationsucralfate 100 mg/ml oral suspension (6 sources)Aluminum ComplexStart: 12-30-2024 End: 73-60-2286uikv 1 dose by mouth every two hours1,000 [...] injection 30 millicurie (2 sources)Start: 09-17-2019 End: 38-13-2903nhtzkxrjct sestamibi (CARDIOLITE) injection 30 millicurieStart: 09-16-2019 End: 55-82-9352qonxqrcgez sestamibi (CARDIOLITE) injection 30 sykyhbkdfa13 actuat tiotropium 0.0025 mg/actuat inhalation spray (10 sources)AnticholinergicStart: 75-42-8559ibae 2 puff(s) by inhalation once daily2 puff, Inhalation, DAILY RESP, First dose on Sat08/12/24 at 1915, Until DiscontinuedStart: 29-04-5568nqss 1 capsule by inhalation once dailytiotropium (SPIRIVA HANDIHALER) 18 MCG inhalation capsule Indications: Chronic obstructive pulmonary disease, unspecified COPD type (HCC) Inhale 1 capsule into the lungs daily 90 capsule 1 02/06/2024ctiveStart: 08-58-1656ymcf 1 capsule by inhalation once dailytiotropium (SPIRIVA HANDIHALER) 18 MCG inhalation capsule Indications: Chronic obstructive pulmonary disease, unspecified COPD type (HCC) Inhale 1 capsule into the lungs daily 90 capsule 1 12/18/2022ctiveStart: 19-50-4615mcaz 1 capsule by inhalation once dailytiotropium (SPIRIVA HANDIHALER) 18 MCG inhalation capsule Indications: Chronic obstructive pulmonary disease, unspecified COPD type (HCC) Inhale 1 capsule into the lungs daily 90 capsule 1 06/11/2022ctivetriamcinolone acetonide 5 mg/ml topical cream (20 sources)CorticosteroidStart: 09-11-2017 End: 32-87-0960Kkkjyebugoccd Acetonide 0.5% EX CREA 09/11/2017 - 09/11/2017 Provider:Start: 33-60-2177lceipzmefxjct acetonide 0.5 % topical cream 09/11/2017 apply a thin layer to the affected areas by topical route 3 times per dayTrue Metrix Glucose Meter (11 sources)Start: 85-46-4030Fmkr Metrix Glucose Meter miscellaneous misc 12/14/2016 use for blood sugar testing TID (dx: E11.9)TRUE METRIX GLUCOSE METER MIS (20 sources)Start: 12-14-2016 End: 68-67-5632PSQQ METRIX GLUCOSE METER MISC 12/14/2016 - 12/14/2016 Provider: TRUE METRIX GLUCOSE METER MISC (10 sources)Start: 12-14-2016 End: 47-48-9602RQOH METRIX GLUCOSE METER MISC 12/14/2016 - 12/14/2016 Provider: TRUE METRIX GLUCOSE TEST STRI MISC (20 sources)Start: 12-14-2016 End: 37-97-8997IDDR METRIX GLUCOSE TEST STRI MISC 12/14/2016 - 12/14/2016 Provider:TRUE METRIX GLUCOSE TEST STRI MISC (10 sources)Start: 12-14-2016 End: 72-80-6244MBSV METRIX GLUCOSE TEST STRI MISC 12/14/2016 - 12/14/2016 Provider:True Metrix Glucose Test Strip (11 sources)Start: 39-55-7263Ixdw Metrix Glucose Test Strip miscellaneous strip 12/14/2016 use for blood sugar testing TID (dx: E11.9)vancomycin (VANCOCIN) 750 mg in sodium chloride 0.9 % 250 mL IVPB (Glsb3Wyr) (1 source)Start: 08-06-2024 End: 72-31-2923051 mg (13.2 mg/kg), IntraVENous, at 250 mL/hr, Administer over 60 Minutes, EVERY 12 HOURS, First dose on Jenn 08/06/24 at 1615, Use 20mm (Blue) Jasn7Pvb Adapter Preparation instructions: Attach medication vial to one 20mm (Blue) Ynkt4Cjk adapter. Rai fluid bag with adapter, mix, and administer per o rder.VITAMIN D3 400 unit MISC (20 sources)Start: 08-16-2017 End: 99-00-8004FVNFYHP D3 400 unit MISC 08/16/2017 - 08/16/2017 Provider:VITAMIN D3 400 unit MISC (5 sources)Start: 08-16-2017 End: 85-21-6879AFULIEU D3 400 unit MISC 08/16/2017 - 08/16/2017 Provider: Problems Active Problems Problem ClassificationProblemDateDocumented DateEpisodic/ChronicAbdominal hernia (20 sources)Hernia of anterior abdominal wall; Translations: [Ventral, unspecified, hernia without mention of obstruction or gangrene]Onset: 08-30-2013 73-72-7868RigknehsIbfnn myocardial infarction (20 sources)Myocardial infarction; Translations: [Non-ST elevation (NSTEMI) myocardial infarction]Onset: 325624-41-2126SstyzsbBwmdddm disorders (20 sources)Anxiety state, unspecified; Translations: [Generalized anxiety disorder]Onset: 776067-27-2873ZiwmwohFlctza; peripheral; and visceral artery aneurysms (20 sources)Abdominal aortic aneurysm without rupture; Translations: [Abdominal aortic aneurysm, without rupture]Onset: 214966-31-5649VwoztqmYgaunhf dysrhythmias (2 sources)Atrial fibrillation; Translations: [Unspecified atrial fibrillation] Onset: 198282-07-4516ZfgqxwpKqvlggh obstructive pulmonary disease and bronchiectasis (20 sources)Acute exacerbation of chronic obstructive airways disease; Translations: [Chronic obstructive lung disease]Onset: ChronicChronic ulcer of skin (20 sources)Pressure ulcer, other site; Translations: [Chronic ulcer of other specified sites]Onset: 136111-72-6690OklmsodVbxdngljud associated with dizziness or vertigo (20 sources)Dizziness; Translations: [Dizziness and giddiness]Onset: 05-27-2014 19-26-1181WrdliiurStxwkarjbl heart failure; nonhypertensive (20 sources)Congestive heart failure; Translations: [Acute on chronic diastolic heart failure]Onset: 03-18-2021 Resolved: 91-16-0302TpfuxjdLjjhsaqz atherosclerosis and other heart disease (20 sources)Coronary arteriosclerosis; Translations: [Chronic ischemic heart disease, unspecified]Onset: 11-06-2012 Resolved: 864980-02-0224BruyeldCoyaipuhfe and other anemia (2 sources)Anemia, unspecified; Translations: [Anemia, unspecified]Onset: 444321-01-5677JcndtveqRwifbaxv mellitus with complications (20 sources)Type 2 diabetes mellitus in obese; Translations: [Diabetes with other specified manifestations, type II or unspecified type, not stated as uncontrolled]Onset: 892919-39-2111JasohuiEhflhbes mellitus without complication (20 sources)Type 2 diabetes mellitus; Translations: [Diabetes mellitus without mention of complication, type IIor unspecified type, not stated as uncontrolled] Onset: 800783-95-5963WwavecsJyfvzzcfs of lipid metabolism (20 sources)Other and unspecified hyperlipidemia; Translations: [Mixed hyperlipidemia]Onset: 018743-16-5480TwlcodiDrtmabua; convulsions (12 sources)Status epilepticus; Translations: [Epilepsy, unspecified, not intractable, with status epilepticus]Onset: 11-09-2022 Resolved: 088220-94-1948UhkqutrXsxtijfpf hypertension (20 sources)Unspecified essential hypertension; Translations: [Hypertensive disorder]Onset: 019842-01-1055LwmqmtgDgpynmjw cause codes: Fall (3 sources)Fall; Translations: [Fall from standing, initial encounter]Onset: Fluid and electrolyte disorders (3 sources)Hyponatremia; Translations: [Hypokalemia]Onset: EpisodicGastroduodenal ulcer (except hemorrhage) (5 sources)Gastric ulcer without hemorrhage AND without perforation; Translations: [Gastric ulcer, unspecifiedas acute or chronic, without hemorrhage or perforation]Onset: 401639-73-2763PigcpfnIxwtmsudwbaao symptoms and ill-defined conditions (20 sources)Incontinence; Translations: [Urinary incontinence]Onset: 04-06-2021 67-34-3298MvrzyeeQumghszvstnk with complications and secondary hypertension (12 sources)Hypertensive emergency; Translations: [Hypertensive emergency]Onset: 260256-15-1661GvoeokrBruszrvhr arthritis and osteomyelitis (except that caused by tuberculosis or sexually transmitted disease) (4 sources)Osteomyelitis of left foot; Translations: [Osteomyelitis, unspecified]Onset: 203269-57-8711GcmywyhZeeejfb and fatigue (20 sources)Other malaise and fatigue; Translations: [Asthenia]Onset: 03-11-2015 54-52-3258XjknlnbiAsym disorders (20 sources)Major depressive affective disorder, recurrent episode, moderate; Translations: [Dysthymic disorder]Onset: 709751-03-6343LvrpvttGylxoi and vomiting (20 sources)Intractable nausea and vomiting; Translations: [Nausea with vomiting, unspecified]Onset: 83-33-3291HjffczcuLfqitthuggi deficiencies (20 sources)Undernutrition; Translations: [Mild protein-calorie malnutrition] Onset: 02-22-2021 Resolved: 637420-45-1951ItnppigLaaysfgtw or stenosis of precerebral arteries (20 sources)Bilateral atherosclerosis of carotid arteries; Translations: [Occlusion and stenosis of bilateral carotid arteries]Onset: 05-27-2014 10-88-7160HqzcsprRbzougwog or stenosis of precerebral arteries (20 sources)Bilateral atherosclerosis of carotid arteries; Translations: [Atherosclerosis of both carotid arteries]Onset: Osteoarthritis (1 source)Osteoarthritis; Translations: [Osteoarthritis, unspecified osteoarthritis type, unspecified site]ChronicOther and ill-defined cerebrovascular disease (1 source)Posterior reversible encephalopathy syndrome; Translations: [POST REVERSIBLE ENCEPHALOPATHY SYND]Onset: 76-83-7470NqujwpsNexbm and ill-defined cerebrovascular disease (12 sources)Posterior reversible encephalopathy syndrome; Translations: [Posterior reversible encephalopathy syndrome]Onset: 994327-72-7595Mivffyi Other bone disease and musculoskeletal deformities (1 source)Avascular necrosis of bone; Translations: [Avascular necrosis (HCC)] ChronicOther circulatory disease (3 sources)Disorder of carotid artery; Translations: [Bilateral carotid artery disease, unspecified type (HCC)]ChronicOther circulatory disease (20 sources)History of angioplasty; Translations: [Peripheral vascular angioplasty status with implants and grafts]Onset: 460130-79-4003Tyaqots Other circulatory disease (8 sources)Blood vessel finding; Translations: [Presence of other vascular implants and grafts]Onset: 970491-45-1260HonkfgaGekdr circulatory disease (4 sources)Disorder of artery; Translations: [Disorder of arteries and arterioles, unspecified]Onset: 478600-97-0282AsabkblVywhp circulatory disease (1 source)Disorder of arteries and arterioles, unspecified; Translations: [Disorder of arteries and arterioles, unspecified]Onset: 03-19-1665NrumefrEqiln circulatory disease (7 sources)History of angioplasty; Translations: [S/P angioplasty with stent] Onset: 378430-74-8039SsznyohqDtets circulatory disease (2 sources)Low blood pressure; Translations: [Hypotension, unspecified] 12-41-4187EkrhcpsjEwifr circulatory disease (3 sources)Hypotension, unspecified; Translations: [Hypotension, unspecified] Onset: 966461-56-6393WgrpdqjvQyfwz connective tissue disease (1 source)Pain in left arm; Translations: [Pain of left upper extremity]Episodic Other connective tissue disease (1 source)Chronic pain of left foot; Translations: [Pain in left foot]Onset: 470080-44-7173FoqyqmnxYuhph ear and sense organ disorders (3 sources)Otalgia, unspecifiedOnset: 31-01-4953GputtkwyBzhbb gastrointestinal disorders (13 sources)Diarrhea; Translations: [Diarrhea, unspecified]Onset: 07-04-2021 50-97-6110TmjupypzYvmxr gastrointestinal disorders (1 source)Diarrhea, unspecified; Translations: [Diarrhea, unspecified]Onset: 36-54-5516KfzbvklcXnvfn injuries and conditions due to external causes (1 source)Contusion; Translations: [Unspecified multiple injuries, initial encounter]EpisodicOther injuries and conditions due to external causes (1 source)Other injury of unspecified body region, initial encounter; Translations: [Open wound(s) (multiple)of unspecified site(s), without mention of complication]Onset: 657592-87-1532WpyzsojnFbztb lower respiratory disease (20 sources)CoughOnset: 28-45-5017UzxnjdwqEdphz lower respiratory disease (5 sources)Shortness of breathOnset: 28-81-8824MqnwuaiqFcqkx lower respiratory disease (1 source)Acute pulmonary edema; Translations: [Acute pulmonary edema (HCC)] EpisodicOther lower respiratory disease (9 sources)Hypoxia; Translations: [Hypoxemia]Onset: 030181-14-6923Hwznlems Other lower respiratory disease (2 sources)Shortness of breath; Translations: [Shortness of breath]Onset: 69-03-3032DxcxxcebHpxiv nervous system disorders (4 sources)Other chronic pain; Translations: [Other chronic pain]Onset: 65-13-3880ZxrregtWdilr nervous system disorders (13 sources)Chronic pain syndrome; Translations: [Chronic pain syndrome]Onset: 485797-29-5613VhlxpxzYbqsy nervous system disorders (4 sources)Neuropathy; Translations: [Polyneuropathy, unspecified]Onset: 373256-17-3601LuvreovRktib nervous system disorders (1 source)Chronic pain syndrome; Translations: [Chronic pain syndrome]Onset: 51-06-6243GipzrspSnzjo non-traumatic joint disorders (20 sources)Hip pain; Translations: [Pain in right hip]Onset: 88-40-3521Imcqzsrv Other nutritional; endocrine; and metabolic disorders (20 sources)Obesity, unspecifiedOnset: 30-75-2618YzrlosmZfswv nutritional; endocrine; and metabolic disorders (10 sources)Body Mass Index 34.0-34.9, adultOnset: 90-22-3659PkctuiuWpfcm nutritional; endocrine; and metabolic disorders (4 sources)Body Mass Index 39.0-39.9, adultOnset: 08-15-0976UeyuzduGnnyx nutritional; endocrine; and metabolic disorders (4 sources)Body Mass Index 40.0-44.9, adultOnset: 45-75-4463DmubtbpEwdmz nutritional; endocrine; and metabolic disorders (4 sources)Body Mass Index 33.0-33.9, adultOnset: 47-43-5298UwjtnrbLnlzw nutritional; endocrine; and metabolic disorders (4 sources)Body Mass Index 32.0-32.9, adultOnset: 16-19-9966VxituytHlnou nutritional; endocrine; and metabolic disorders (20 sources)Simple obesity ; Translations: [Obesity, unspecified]Onset: 86-41-0365ZjatvkuOjwon nutritional; endocrine; and metabolic disorders (9 sources)Finding of body mass index; Translations: [Body mass index [BMI]] Onset: 39-31-3067RhckilyUvygy nutritional; endocrine; and metabolic disorders (12 sources)Severe obesity; Translations: [Morbid (severe) obesity due to excess calories]Onset: 118721-72-7273ZnnnsdzIvqdf screening for suspected conditions (not mental disorders or infectious disease) (20 sources)Encounter for screening for diabetes mellitus; Translations: [Thallium stress test abnormal]Onset: 01-22-2013 Resolved: 602779-37-8812AdebrkesBiaso upper respiratory disease (4 sources)Allergic rhinitis, cause unspecifiedOnset: 43-82-9755LqnqqgxYsxou upper respiratory disease (18 sources)Perennial allergic rhinitis with seasonal variation; Translations: [Assessment of Allergic RhinitisPerennial with Seasonal Variation]Onset: 14-17-8212IhcvlmdWidid upper respiratory disease (5 sources)Allergic rhinitis; Translations: [Allergic rhinitis, unspecified] Onset: 839164-75-3316SownshnUfcjky media and related conditions (9 sources)Chronic suppurative otitis media of left middle ear; Translations: [Other chronic suppurative otitis media, left ear]Onset: 330676-73-5754 ChronicPeripheral and visceral atherosclerosis (20 sources)Peripheral vascular disease, unspecified; Translations: [Atherosclerosis of arteries of the extremities]Onset: ChronicPhlebitis; thrombophlebitis and thromboembolism (20 sources)H/O: thrombosis; Translations: [Personal history of other venous thrombosis and embolism]30-80-3897CxqiewgfRixofxbt; pneumothorax; pulmonary collapse (1 source)Bilateral pleural effusion; Translations: [Pleural effusion, not elsewhere classified]EpisodicPulmonary heart disease (12 sources)Pulmonary hypertension; Translations: [Pulmonary hypertension, unspecified]Onset: 971298-59-6788MuxtjqtBccdxbsb codes; unclassified (20 sources)Tobacco user; Translations: [Tobacco abuse]Onset: 05-27-2014 39-60-7911CnzbsejNhdbtsyp codes; unclassified (2 sources)Persistent insomnia; Translations: [Persistent Insomnia]Onset: 08-19-5768WxsqbiqOjghkzfl codes; unclassified (4 sources)Restlessness and agitation; Translations: [Restlessness and agitation]Onset: 902552-43-7830JgmguycAeujcrwl codes; unclassified (1 source)Restlessness and agitation; Translations: [Restlessness and agitation] Onset: 47-82-1482OtoyrivAgxunnsw codes; unclassified (20 sources)Tobacco user; Translations: [Tobacco use]Onset: EpisodicResidual codes; unclassified (1 source)Tobacco use; Translations: [Tobacco use]Onset: 99-71-7835Dyvifjvk Residual codes; unclassified (1 source)Pain; Translations: [Pain, unspecified]49-76-0232LxqipeirCtcrlocd codes; unclassified (1 source)Other specified personal risk factors, not elsewhere classified; Translations: [Other specified personal risk factors, not elsewhere classified] Onset: 69-94-5587IkbqliemZsewcqutmye failure; insufficiency; arrest (adult) (20 sources)Acute on chronic hypoxemic respiratory failure; Translations: [Acute and chronic respiratory failure with hypoxia]Onset: 04-23-2019 Resolved: 550586-25-4293UstusraDbbcddfzhqw failure; insufficiency; arrest (adult) (20 sources)Acute hypoxemic and hypercapnic respiratory failure; Translations: [Acute on chronic hypercapnic respiratory failure]Onset: Spondylosis; intervertebral disc disorders; other back problems (5 sources)Degeneration of lumbar intervertebral disc; Translations: [Lumbar spondylosis]Onset: 663694-53-9697MbfyfyxAsmrvfdga-oxodidq disorders (20 sources)Tobacco use disorder; Translations: [Tobacco dependence syndrome] Onset: 283573-52-0032JsyakfxRfmoxahwjyb injury; contusion (3 sources)Right knee abrasion; Translations: [Abrasion, right knee, initial encounter]EpisodicSyncope (2 sources)Near syncope; Translations: [Syncope and collapse]EpisodicThyroid disorders (20 sources)Hypothyroidism; Translations: [Unspecified acquired hypothyroidism] Onset: 476971-20-8400HzzwcrwWkknvcawkjsr (20 sources)Body Mass Index 35.0-35.9, adult; Translations: [Body Mass Index 39.0-39.9, adult]Onset: 09-04-0315BlucumlPaibyrbmfcdp (1 source)Contusion of left hand; Translations: [Contusion of left hand, initial encounter]Unclassified (1 source)COVID-19; Translations: [COVID-19]Onset: Unclassified (4 sources)History of cardiac catheterization; Translations: [S/P cardiac cath] Onset: 361526-40-4373Xjrysdchqusg (1 source)CONTACT W/AND (SUSP) EXPOS COVID-19; Translations: [CONTACT W/AND (SUSP) EXPOS COVID-19]Onset: 50-95-2934Njnpmssivtkm (1 source)Weakness - GeneralizedOnset: 93-87-0646Fdrrmeafogbr (1 source)Pressure-induced deep tissue damage of left heel; Translations: [Pressure-induced deep tissue damage of left heel]Onset: 98-54-4186Swivwkxazego (1 source)Wound CheckOnset: 72-89-9067Qpxltpdovtjb (1 source)Decreased Oxygen Level With No SymptomsOnset: 20-55-8813Saxebbojlimf (1 source)Musculoskeletal ProblemOnset: 61-11-9695Spzivfyxnjhy (1 source)Exposure Coronavirus (Covid-19)Onset: 30-73-5392Groglsyjpunq (1 source)Body Aches, Chills, Runny NoseOnset: 27-06-7888Hxgxrzisladp (1 source)BLE pain, worse over past couple days. CTA Deep profunda is the main supply of both lower extremities, severe stenosis at the right deep profunda artery, Aortobiiliac bypass graft is widely patent. Both SFA and left femoral popliteal bypass grafts are occluded.Onset: 80-56-3348Kyieuft tract infections (20 sources)Urinary tract infectious disease; Translations: [Escherichia coli urinary tract infection]Onset: 616436-31-6297Ddpctjrv Past or Other Problems Problem ClassificationProblemDateDocumented DateEpisodic/ChronicAbdominal pain (20 sources)Abdominal pain, other specified site; Translations: [Abdominal pain] Onset: 73-49-2156VwifithxAvysdsmktclawr/social admission (20 sources)Counseling procedure with explicit context; Translations: [Relationship problems]Onset: 951901-44-2226XkjiryusZiufegt obstructive pulmonary disease and bronchiectasis (20 sources)Bronchitis; Translations: [Bronchitis, not specified as acute or chronic]Onset: 03-65-1836BcbjwzciLmucjnthgmmst of surgical procedures or medical care (20 sources)Non-healing surgical wound; Translations: [Other postoperative infection]Onset: 326573-95-8737KrkasvuwHgvjbstl atherosclerosis and other heart disease (20 sources)Recurrent coronary arteriosclerosis after percutaneous transluminal coronary angioplasty; Translations: [Presence of coronary angioplasty implant and graft]Onset: 789219-15-4966WpawfxuhOnvkhlyg injury or internal injury (20 sources)Unspecified injury of unspecified part of pancreas, initial encounter; Translations: [Splenic hematoma]Onset: 129292-29-8427Jumuliyz Deficiency and other anemia (6 sources)Anemia; Translations: [Anemia, unspecified]Onset: 01-28-2023 85-34-5154OnffsreeZxoibypc mellitus without complication (15 sources)Hyperglycemia; Translations: [Hyperglycemia, unspecified]Onset: 977115-57-1564CozfrbhhIsckoqpl of mouth; excluding dental (4 sources)Oral lesion; Translations: [Other lesions of oral mucosa]Onset: 549582-52-8825JxumvcgvEkkufxmol of teeth and jaw (10 sources)Acute apical periodontitis of pulpal originOnset: 34-68-9093Povjqsfk E Codes: Fall (20 sources)Fall; Translations: [Unspecified fall, initial encounter]Onset: 04-06-2021 Resolved: 90-80-1402LlvkvtqjWstyoxzr; convulsions (1 source)Unspecified convulsions; Translations: [UNSPECIFIED CONVULSIONS]Onset: 71-50-7289IidxrfyeJwwgcljzjaztafcu hemorrhage (20 sources)Acute lower gastrointestinal hemorrhage; Translations: [Gastrointestinal hemorrhage, unspecified]Onset: 444682-84-7436Bujsanlm Immunizations and screening for infectious disease (20 sources)Need for prophylactic vaccination and inoculation against influenza; Translations: [Contact with and (suspected) exposure to other viral communicable diseases]Onset: 02-10-2015 Resolved: 444558-09-7837FdnjzkbvAycmjopaknxc; infection of eye (except that caused by tuberculosis or sexually transmitteddisease) (20 sources)Acute atopic conjunctivitis; Translations: [Acute atopic conjunctivitis]Onset: 72-53-5303MqoioxfyQteffvo examination/evaluation (8 sources)Laboratory examination, unspecifiedOnset: 58-11-1782AktxmiwaXcub disorders (20 sources)Major depressive disorder, single episode, unspecified; Translations: [Mood disorders]Onset: 10-22-2022 Resolved: 534459-81-9727Yqktmxivzng chest pain (8 sources)Chest pain; Translations: [Chest pain, unspecified]Onset: 01-19-2024 34-41-8317ZymfifdfSofa wounds of extremities (6 sources)Open wound of foot, excluding toe(s); Translations: [Unspecified open wound, unspecified foot, initial encounter]Onset: 699156-43-5561Ppjkdkxn Open wounds of head; neck; and trunk (13 sources)Open wound(s) (multiple) of unspecified site(s), without mention of complication; Translations: [Laceration of nose]Onset: EpisodicOther aftercare (1 source)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 terminal make up operator (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; Translations: [OTH WINDOW MAKER CURRENT DRUG THERAPY]Onset: 05-76-4137XniizaoqNebpx bone disease and musculoskeletal deformities (10 sources)Other disorders of bone and cartilageOnset: 20-70-5701ZercscvjApapr circulatory disease (5 sources)Pulmonary congestion ; Translations: [Other specified symptoms and signs involving the circulatory and respiratory systems]Onset: 09-21-2022 94-02-8256PdchyosjGszje circulatory disease (8 sources)Ischemia of left lower extremity; Translations: [Other disorder of circulatory system]Onset: 241679-88-0610MwuvparjDplah circulatory disease (4 sources)Disorder of cardiovascular system; Translations: [Unspecified disorder of circulatory system]Onset: 995389-29-5672LocedysrYvkcc circulatory disease (2 sources)Other disorder of circulatory system; Translations: [Other disorder of circulatory system]Onset: 67-23-7471AaduzhbsRszmy connective tissue disease (20 sources)Pain in limbOnset: 77-41-8826IkhvwxtzRjyvq connective tissue disease (15 sources)Spasm; Translations: [Other muscle spasm]Onset: 518547-43-2602 EpisodicOther connective tissue disease (9 sources)Pain of left hand; Translations: [Pain in left hand]Onset: 06-11-2022 22-52-7222ZbgmjqfzQmplf connective tissue disease (9 sources)Intermittent claudication; Translations: [Pain in leg, unspecified] Onset: 072405-03-1407IozztqwzBenfs connective tissue disease (10 sources)Pain in lower limb; Translations: [Pain in leg, unspecified]Onset: 060742-56-8414BtuxplslYjjfx connective tissue disease (4 sources)Disorder of musculoskeletal system; Translations: [Soft tissue disorder, unspecified]Onset: 584513-75-1229EncdopjqKhosy connective tissue disease (1 source)Other specified soft tissue disorders; Translations: [Other specified soft tissue disorders]Onset: 30-28-3745UkpjtgqoKiium connective tissue disease (2 sources)Pain in leg, unspecified; Translations: [Pain in leg, unspecified] Onset: 37-08-9828UajvhewaHjulk ear and sense organ disorders (12 sources)Excessive cerumen in ear canal ; Translations: [Impacted cerumen, bilateral]Onset: 183282-05-9529VkzfffhqScdpd fractures (1 source)Unspecified fracture of second lumbar vertebra, initial encounter for closed fracture; Translations: [UNS FX SECOND LUMB VERT INIT PAYAM FX]Onset: 91-91-7128DomqzmfkCrazx fractures (4 sources)Closed fracture of pelvis; Translations: [Fracture of unspecified parts of lumbosacral spine and pelvis, initial encounter for closed fracture] Onset: 351812-90-7020NjnmifaaRbvbv gastrointestinal disorders (13 sources)Abdominal mass; Translations: [Right lower quadrant abdominal swelling, mass and lump]Onset: 833088-18-8825ZmpldphxGoafz infections (8 sources)Unspecified infectious and parasitic diseasesOnset: 10-29-2017 EpisodicOther inflammatory condition of skin (4 sources)Erythema; Translations: [Erythematous condition, unspecified]Onset: 329607-70-9737SzakaabpUjdmi injuries and conditions due to external causes (10 sources)Insect bite, nonvenomous, of other, multiple, and unspecified sites, without mention of infectionOnset: 10-74-5374YtbihaiwVwkke injuries and conditions due to external causes (5 sources)Closed injury of head; Translations: [Unspecified injury of head, initial encounter]Onset: 00-33-3034CevirvdpUjdck lower respiratory disease (20 sources)Dyspnea; Translations: [Shortness of breath]Onset: 11-23-2021 43-20-9273WvprprviFwncv lower respiratory disease (17 sources)Cough; Translations: [Cough]Onset: 07-25-2021 Resolved: 890213-56-7226SaniownwGozxl lower respiratory disease (14 sources)Respiratory distress; Translations: [Acute respiratory distress] Onset: 893103-72-5665KerxadolQzmjr lower respiratory disease (20 sources)Chronic cough; Translations: [Chronic cough]Onset: 03-13-2022 75-11-1979UzvrycnnDiyrr lower respiratory disease (4 sources)Hypoxemia; Translations: [Hypoxemia]Onset: EpisodicOther nervous system disorders (5 sources)Numbness; Translations: [Anesthesia of skin]Onset: 05-16-2024 96-17-1823EfpaciwrOfpzm nervous system disorders (1 source)Paresthesia of skin; Translations: [Paresthesia of skin]Onset: 86-21-1527KosulhchMikuu non-traumatic joint disorders (20 sources)Pain in joint, shoulder regionOnset: 16-12-8727SwyelfokXmpoy non- traumatic joint disorders (20 sources)Shoulder pain; Translations: [Pain in unspecified limb]Onset: 67-78-0941LeymksctHqqrj non-traumatic joint disorders (12 sources)Pain in right hip joint; Translations: [Pain in right hip]Onset: 59-17-0898ZoqhxurlBqvox non-traumatic joint disorders (17 sources)Pain in right knee; Translations: [Pain in joint, lower leg]Onset: 028482-36-5454XlzfkvkeBfjqn non-traumatic joint disorders (15 sources)Chronic pain of left upper limb; Translations: [Pain in left shoulder]Onset: 060614-85-0983OoxqnvwrBvxwq non-traumatic joint disorders (4 sources)Pain in right hip; Translations: [Pain in right hip]Onset: 11-17-2021 EpisodicOther non-traumatic joint disorders (2 sources)Pain in left hip; Translations: [Pain in left hip]Onset: 12-18-2021 EpisodicOther nutritional; endocrine; and metabolic disorders (1 source)Finding of body mass index; Translations: [Body mass index [BMI]] Onset: 55-01-9739ShjorfvhPxhjs nutritional; endocrine; and metabolic disorders (5 sources)Weight decreased; Translations: [Abnormal weight loss]Onset: 649689-89-1040YcjutxhmVlyeq skin disorders (20 sources)Inflammatory dermatosis; Translations: [Contact dermatitis and other eczema, unspecified cause]Onset: 02-01-9727TcdfnaprAhwmd skin disorders (9 sources)Mass of lower limb; Translations: [Localized swelling, mass and lump, left lower limb]Onset: 495158-96-5552PoappgxnSodvr skin disorders (4 sources)Lesion of skin of foot; Translations: [Changes in skin texture]Onset: 538783-23-8190TcmhnnndVvxzf skin disorders (4 sources)Xeroderma; Translations: [Xerosis cutis]Onset: 677744-81-8625 EpisodicOther skin disorders (1 source)Changes in skin texture; Translations: [Changes in skin texture]Onset: 98-37-6944DscsvetfUdmnf upper respiratory infections (20 sources)Acute upper respiratory infections of unspecified site; Translations: [Acute sinusitis]Onset: 38-87-1887LsolmcnfRafhgi media and related conditions (9 sources)Acute suppurative otitis media without spontaneous rupture of ear drum; Translations: [Acute suppurative otitis media without spontaneous rupture of ear drum, left ear]Onset: 859510-44-0410RxdoowvlFgsqxbfblk disorders (not diabetes) (20 sources)Mass of pancreas; Translations: [Other specified diseases of pancreas]Onset: 824793-98-0218VexqtemhNohhkoryy (except that caused by tuberculosis or sexually transmitted disease) (20 sources)Infective pneumonia; Translations: [Community acquired pneumonia] Onset: 031059-39-4183XiqlqegkMsmtixiam by other medications and drugs (20 sources)Drug intolerance; Translations: [Other specified health status] Onset: 547429-50-6542PunuvrowWfnmdeseu heart disease (9 sources)Pulmonary embolism; Translations: [Other pulmonary embolism without acute cor pulmonale]Onset: 970996-20-2391KypjdmpdZnfscloe codes; unclassified (20 sources)Altered mental status; Translations: [Altered mental status, unspecified]Onset: 605991-61-1327EmagzismPxzsjlxo codes; unclassified (2 sources)Other general symptoms and signs; Translations: [Suspected COVID-19 virus infection]Onset: 07-17-2019 Resolved: 240687-04-8256QgsnwwbuEfiruqkj codes; unclassified (20 sources)History of cardiac catheterization; Translations: [Other specified postprocedural states]Onset: 648274-46-1127YqoztnjvNvfikuag codes; unclassified (20 sources)Edema of lower extremity; Translations: [Localized edema]Onset: 316935-13-7066WnpwtkpjUupgqxcl codes; unclassified (13 sources)Difficulty sleeping ; Translations: [Sleep disorder, unspecified] Onset: 637263-55-3412PkqjblacMuyanskk codes; unclassified (20 sources)Insomnia; Translations: [Insomnia, unspecified]Onset: 06-22-2021 03-90-8830PxcdwgmgPymodrrb codes; unclassified (11 sources)Tobacco use and exposure - finding; Translations: [Tobacco use] Onset: 41-56-8066SbllvrtyYrthient codes; unclassified (12 sources)Postoperative state; Translations: [Other specified postprocedural states]Onset: 137414-35-3576PkuivnifOkelndbd codes; unclassified (4 sources)Transient alteration of awareness; Translations: [Transient alteration of awareness]Onset: 367327-41-1955FkdtfapvThvtisnr codes; unclassified (4 sources)Acute insomnia; Translations: [Insomnia, unspecified]Onset: 317360-89-0469UipaaoshHqxblzuc codes; unclassified (5 sources)Unable to perform personal care activity; Translations: [Other specified health status]Onset: 341711-31-7220ToszirsnWogselmm codes; unclassified (1 source)Other specified health status; Translations: [Other specified health status]Onset: 83-64-0310ValohndvUwwzrlshwdb failure; insufficiency; arrest (adult) (20 sources)Acute hypoxemic and hypercapnic respiratory failure; Translations: [Acute respiratory failure with hypoxia]Onset: 06-05-2018 Resolved: 609781-99-2845MlvgkwslZyhj and subcutaneous tissue infections (20 sources)Cellulitis of left lower limb; Translations: [Cellulitis of left lower limb]Onset: 33-77-9557JgrendcdNathf and face fractures (4 sources)Closed fracture of nasal bones; Translations: [Fracture of nasal bones, initial encounter for closed fracture]Onset: 553009-48-0530Prggdvvz Spondylosis; intervertebral disc disorders; other back problems (20 sources)Backache, unspecified; Translations: [Lumbago]Onset: 02-10-2015 95-74-6965SumjoxmjPatsfcx and strains (8 sources)Strain of muscle and/or tendon of thigh; Translations: [Strain of tendon of medial thigh muscle]Onset: 21-91-4234EvbrkucqPtrezjfdg-related disorders (20 sources)Cigarette smoker ; Translations: [Poisoning by opiate analgesic drug]Onset: 030180-82-2249YunazadoYefifjw disorders (20 sources)Disorder of thyroid gland; Translations: [Disorder of thyroid, unspecified] Resolved: 727255-61-6692GqumxaasYdyyhvxndzuk (10 sources)Insomnia, unspecifiedOnset: 53-61-3843IiskxkxgUghphohlaglw (20 sources)Finding of body mass index; Translations: [Body Mass Index]Onset: 00-89-4933Xabukdmxfpas (20 sources)Questionnaires Phq-9 Total Score; Translations: [Questionnaires Phq- 9 Total Score]Onset: 18-84-7770Wunehklwbemt (20 sources)Fagerstrom Score; Translations: [Fagerstrom Score]Onset: 01-12-2019 Unclassified (20 sources)Patient encounter status; Translations: [Colon cancer screening] Onset: 03-17-2015 Resolved: 932360-85-2945Oxvbxuhpktjd (2 sources)Onset: 240768-67-3636Hdaul infection (19 sources)COVID-19; Translations: [Pneumonia due to other virus not elsewhere classified]Onset: 899190-87-3339Gnrblsuw Results Test NameValueInterpretationReference RangeFacilityBEDSIDE GLUCOSEon 01-01-2025 Glucose [Mass/Vol]251 mg/uNAzky28-66LzkIdfoaxMorrow County HospitalComment on above: Performed By: #### BEDG ####[facility] [address] VIRGlucose [Mass/Vol]199 mg/wDSzpn35-90FapWpktyxMorrow County HospitalComment on above:Performed By: #### BEDG ####[facility] ([address] [id number] VIRBedside Glucose *Place/Obtain serum glucose if >500 per glucometer.on 00-46-7263Ifhwixb [Mass/Vol]251 mg/aKLxgt58 - 99 mg/dLUniversity Hospitals Beachwood Medical CenterInterpretation and review of laboratory resultsAbnoFriends HospitalGlucose [Mass/Vol]199 mg/xYUujj66 - 99 mg/dLUniversity Hospitals Beachwood Medical Center Interpretation and review of laboratory resultsAbnoPsychiatric hospital, demolished 2001Glucose [Mass/Vol]189 mg/yUXwer60 - 99 mg/dLUniversity Hospitals Beachwood Medical CenterInterpretation and review of laboratory resultsAbnoFriends HospitalGlucose [Mass/Vol]242 mg/pWOcrm99 - 99 mg/dL [facility] CenterInterpretation and review of laboratory resultsAbnoal Warren State HospitalGlucose [Mass/Vol]321 mg/wGJzas85 - 99 mg/dLUniversity Hospitals Beachwood Medical CenterInterpretation and review of laboratory results AbnormalProSelect Specialty Hospital - JohnstownCBC WITH AUTO DIFFERENTIAL on 90-53-4624SJSHLDWMT ABSOLUTE COUNT (10*3/UL) BY AUTOMATED COUNT0.0 10*3/uL Normal0.0-0.2PSelect [facility] [place] on above:Result Comment: This is an appended report. These results have been appended to a previously preliminary verified report.Performed By: #### CBCA ####[facility] ([facility])[address] [facility], [id number] VIRBASOPHILS RELATIVE PERCENT BY AUTOMATED COUNT0.3 %NormalUC [facility] on above:Result Comment: This is an appended report. These results have been appended to a previously preliminary verified report.Performed By: #### CBCA ####[facility] ([facility])[address] [place], [place] [address]E.[place], [id number] VIR CELLAVISION ANISOCYTOSIS IN BLOOD BY LIGHT MICROSCOPY2+[facility] on above:Result Comment: This is an appended report. These results have been appended to a previously preliminary verified report.Performed By: #### CBCA ####[facility] ([facility])[address] [place] [address], [id number] VIRCELLAVISION DIFFERENTIAL TYPEAUTOMATED DIFFERENTIAL [facility] on above:Result Comment: This is an appended report. These results have been appended to a previously preliminary verified report.Performed By: #### CBCA ####[facility] ([facility])[address] [place], [place] [address]E.[place], [id number] VIRCELLAVISION ELLIPTOCYTES IN BLOOD BY LIGHT MICROSCOPY1+NormalUC [facility] Hospital on above:Result Comment: This is an appended report. These results have been appended to a previously preliminary verified report.Performed By: #### CBCA ####[facility] ([facility])[address] [place] [address] AVE.[facility], [id number] VIR CELLAVISION RBC FRAGMENTS1+NormalMorrow County HospitalComascension standish hospital on above: Result Comment: This is an appended report. These results have been appended to a previously preliminary verified report.Performed By: #### CBCA ####[facility] ([address] [id number] VIR Eosinophils (Bld) [#/Vol]0.0 10*3/uLNormal0.0-0.4[facility] Comment on above:Result Comment: This is an appended report. These results have been appended to a previously preliminary verified report.Performed By: #### CBCA ####[facility] ([address] [address] VIREOSINOPHILS RELATIVE PERCENT BY AUTOMATED COUNT0.0 %NormalMorrow County HospitalComment on above:Result Comment: This is an appended report. These results have been appended to a previously preliminary verified report. Performed By: #### CBCA ####[facility] ([address], [id number] VIRErythrocyte distribution width (RBC) [Ratio]24.1 % High11.5-15ProBaylor Scott & White Medical Center – GrapevineComment on above:Performed By: #### CBCA ####[facility] ([address], [id number] VIRHematocrit (Bld) [Volume fraction]37.2 %Qhayxq69-47QimPxspyfBaylor Scott & White Medical Center – GrapevineComment on above:Performed By: #### CBCA ####[facility] ([address] [id number] VIRHemoglobin (Bld) [Mass/Vol] 11.7 g/dKTklerx86.7-15.5PCincinnati VA Medical CenterComment on above:Performed By: #### CBCA ####[facility] ([address] [id number] VIRLYMPHOCYTES ABSOLUTE COUNT (10*3/UL) BY AUTOMATED COUNT 0.3 10*3/uLLow1.0-3.5PCincinnati VA Medical CenterComment on above:Result Comment: This is an appended report. These results have been appended to a previously preliminary verified report.Performed By: #### CBCA ####[facility] ([address], [id number] VIRLYMPHOCYTES RELATIVE PERCENT BY AUTOMATED COUNT3.0 %NormalProBaylor Scott & White Medical Center – GrapevineComascension standish hospital on above:Result Comment: This is an appended report. These results have been appended to a previously preliminary verified report.Performed By: #### CBCA ####[facility] ([address], [id number] VIRMCH (RBC) [Entitic mass]25.8 liSaz58-68HndLvzenyMorrow County HospitalComment on above:Performed By: #### CBCA ####[facility] ([address], [id number] VIRMCHC (RBC) [Mass/Vol]31.3 g/uYEau68-23 [facility] HospitalComment on above:Performed By: #### CBCA ####[facility] ([address], [id number] VIRMCV (RBC) [Entitic vol]82 qWCpwbjy53-016SduMzczgpMorrow County HospitalComment on above: Performed By: #### CBCA ####[facility] ([address], [id number] VIRMONOCYTES ABSOLUTE COUNT (10*3/UL) BY AUTOMATED COUNT0.3 10*3/uLNormal0.0-0.9[facility] on above:Result Comment: This is an appended report. These results have been appended to a previously preliminary verified report.Performed By: #### CBCA ####[facility] ([address], [id number] VIRMONOCYTES RELATIVE PERCENT BY AUTOMATED COUNT2.7 %NormalProBaylor Scott & White Medical Center – GrapevineComment on above:Result Comment: This is an appended report. These results have been appended to a previously preliminary verified report.Performed By: #### CBCA ####[facility] ([facility])[address] [place], [place] [address]E.[place], [id number] VIRNEUTROPHILS ABSOLUTE COUNT BY AUTOMATED COUNT9.7 10*3/uLHigh1.5-6.6ProBaylor Scott & White Medical Center – GrapevineComment on above:Result Comment: This is an appended report. These results have been appended to a previously preliminary verified report. Performed By: #### CBCA ####[facility] ([address], [id number] VIRNEUTROPHILS RELATIVE PERCENT BY AUTOMATED COUNT94.0 %NormalMorrow County HospitalComment on above:Result Comment: This is an appended report. These results have been appended to a previously preliminary verified report.Performed By: #### CBCA ####[facility] ([address], [id number] VIRPlatelet mean volume (Bld) [Entitic vol]7.3 fLNormal7-12PCincinnati VA Medical CenterComment on above:Performed By: #### CBCA ####[facility] ([address], [id number] VIRPlatelets (Bld) [#/Vol]305 10*3/uQAjudql420-786OgbHhmbuo Fremont HospitalComment on above:Performed By: #### CBCA ####[facility] ([address], [id number] VIRRBC COUNT4.52 X10E12/LNormal3.8-5.2PCincinnati VA Medical CenterComment on above:Performed By: #### CBCA ####[facility] ([address], [id number] VIRWBC (Bld) [#/Vol]10.3 10*3/uLNormal4-11ProBaylor Scott & White Medical Center – GrapevineComment on above:Performed By: #### CBCA ####[facility] ([facility] [place] [address] AVE.[place], [id number] VIRCBC auto differentialon 50-90-2117Gycmjmujuhfy Ql (Bld)2+[facility] SystemComment on above:This is an appended report. These results have been appended to a previously preliminary verified report.Basophils (Bld) [#/Vol]0 10*3/uL0.0 - 0.2 10*3/uL [facility] CenterComment on above:This is an appended report. These results have been appended to a previously preliminary verified report. Basophils/100 WBC (Bld)0.3 %[facility] Medical CenterComment on above:This is an appended report. These results have been appended to a previously preliminary verified report.Complement C3 fragment (RBC) [Mass/Vol]1+[facility] Comment on above:This is an appended report. These results have been appended to a previously preliminary verified report.Differential cell count method Nom (Bld)AUTOMATED DIFFERENTIALUniversity Hospitals Beachwood Medical CenterComment on above:This is an appended report. These results have been appended to a previously preliminary verified report.Elliptocytes LM Ql (Bld)1+[facility] SystemComment on above:This is an appended report. These results have been appended to a previously preliminary verified report.Eosinophils (Bld) [#/Vol]0 10*3/uL0.0 - 0.4 10*3/uLWayne HealthCare Main Campus SystemComment on above:This is an appended report. These results have been appended to a previously preliminary verified report. Eosinophils/100 WBC (Bld)0 %[facility] Medical CenterComment on above:This is an appended report. These results have been appended to a previously preliminary verified report.Erythrocyte distribution width (RBC) [Ratio]24.1 %High11.5 - 15 %[facility] Medical CenterHematocrit (Bld) [Volume fraction]37.2 %35 - 47 % [facility] Medical CenterHemoglobin (Bld) [Mass/Vol]11.7 g/dL11.7 - 15.5 g/dL [facility] Medical CenterInterpretation and review of laboratory resultsAbnormal [facility] Medical CenterLymphocytes (Bld) [#/Vol]0.3 10*3/uLLow1.0 - 3.5 10*3/uL [facility] CenterComment on above:This is an appended report. These results have been appended to a previously preliminary verified report. Lymphocytes/100 WBC (Bld)3 %[facility] Medical CenterComment on above:This is an appended report. These results have been appended to a previously preliminary verified report.MCH (RBC) [Entitic mass]25.8 pgLow27 - 34 [facility] CenterMCHC (RBC) [Mass/Vol]31.3 g/dLLow32 - 36 g/dLUniversity Hospitals Beachwood Medical CenterMCV (RBC) [Entitic vol]82 fL80 - 100 [facility] HospitalMonocytes (Bld) [#/Vol]0.3 10*3/uL0.0 - 0.9 10*3/uLUniversity Hospitals Beachwood Medical CenterComment on above:This is an appended report. These results have been appended to a previously preliminary verified report.Monocytes/100 WBC (Bld)2.7 %[facility] Comment on above:This is an appended report. These results have been appended to a previously preliminary verified report.Neutrophils (Bld) [#/Vol]9.7 10*3/uL High1.5 - 6.6 10*3/uLUniversity Hospitals Beachwood Medical CenterComment on above:This is an appended report. These results have been appended to a previously preliminary verified report.Neutrophils/100 WBC (Bld)94 %[facility] Medical CenterComment on above:This is an appended report. These results have been appended to a previously preliminary verified report.Platelet mean volume (Bld) [Entitic vol]7.3 fL7 - 12 [facility] HospitalPlatelets (Bld) [#/Vol]305 10*3/uLUniversity Hospitals Beachwood Medical CenterRBC (Bld) [#/Vol]4.52 10*6/uLUniversity Hospitals Beachwood Medical CenterWBC LM Ql (Sput)10.3 [facility] HospitalCOMPREHENSIVE METABOLIC PANELon [id number] [Mass/Vol]3.3 g/dLNormal3.2-5.3PCincinnati VA Medical Center Comment on above:Performed By: #### CMP ####[facility] ([address] [place] [address] VIRALP [Catalytic activity/Vol]78 U/L Wkwzsi49-304FuyHvtdqkMorrow County HospitalComment on above:Performed By: #### CMP ####[facility] ([address], [place] [address] VIRALT [Catalytic activity/Vol]12 U/LNormal<=31PCincinnati VA Medical Center Comment on above:Performed By: #### CMP ####[address] [place] [address] VIRAnion gap [Moles/Vol]12 mmol/L Normal5-15M[facility] County HospitalComment on above:Performed By: #### CMP ####[address], [place] [address] VIRAST [Catalytic activity/Vol]16 U/LNormal<=41[facility] Comment on above:Performed By: #### CMP ####[facility] ([address] [place] [address] VIRBilirubin [Mass/Vol]0.8 mg/dLNormal 0.3-1.2PCincinnati VA Medical CenterComment on above:Performed By: #### CMP ####[facility] ([address], [place] [address] VIRCalcium [Mass/Vol]8.8 mg/dLNormal8.5-10.5PCincinnati [facility] Center Comment on above:Performed By: #### CMP ####[facility] ([address] [place] [address] VIRChloride [Moles/Vol]97 mmol/LLow 98-109ProBaylor Scott & White Medical Center – GrapevineComment on above:Performed By: #### CMP ####[facility] ([facility])[address] [place] [address] AV.[place], [place] [address] VIRCO2 [Moles/Vol]32 mmol/FOfvnmk15-82LqxEmmybq [facility]remont HospitalComment on above:Performed By: #### CMP ####[facility] ([address] [place] [address] VIRCreatinine [Mass/Vol]0.70 mg/dLNormal 0.40-1.00ProBaylor Scott & White Medical Center – GrapevineComment on above:Result Comment: METHOD TRACEABLE TO IDMS STANDARDPerformed By: #### CMP ####[facility] ([address] [place] [address] VIREGFR (CKD-EPI) NON-RACE DEPENDENT>^90Normal>=60ProBaylor Scott & White Medical Center – GrapevineComment on above:Result Comment: eGFR not reported due to non-numeric value for Creatinine.Reported eGFR is based ontheCKD-EPI 2020 equation that doesnot use a race coefficient. Performed By: #### CMP ####[facility] ([address] [place] [address] VIRGlucose [Mass/Vol]194 mg/uHBfnr65-57HksExecfpBaylor Scott & White Medical Center – GrapevineComment on above:Performed By: #### CMP ####[facility] ([address] [place] [address] VIRPotassium [Moles/Vol]3.5 mmol/LNormal3.5-5.0ProBaylor Scott & White Medical Center – GrapevineComment on above: Performed By: #### CMP ####[facility] ([address] [place] [address] VIRProtein [Mass/Vol]6.4 g/dLNormal6.0-8.0ProOhiohealth Doctors Hospitalca Edwards HospitalComment on above:Performed By: #### CMP ####[facility] ([address] [address] VIRSodium [Moles/Vol]141 mmol/GYxyogy090-433UyiShheja Fremont HospitalComment on above: Performed By: #### CMP ####[facility] HOSPITALAriana [address] [address] VIRUrea nitrogen [Mass/Vol]17 mg/dLNormal5-27 [facility] HospitalComment on above:Performed By: #### CMP ####[facility] HOSPITALA [address] [address] VIR Comprehensive metabolic panelon 94-70-1639Sgdekpb [Mass/Vol]3.3 g/dL3.2 - 5.3 g/dLMiddletown Hospital Health SystemALP [Catalytic activity/Vol]78 U/L39 - 130 U/L [facility] SystemALT No additional P-5'-P [Catalytic activity/Vol]12 U/L NINF - 31 U/LProMedica Health SystemAnion gap [Moles/Vol]12 mmol/L5 - 15 mmol/L [facility] SystemAST [Catalytic activity/Vol]16 U/LNINF - 41 U/LProMedica Health SystemBilirubin [Mass/Vol]0.8 mg/dL0.3 - 1.2 mg/dLWayne HealthCare Main Campus System Calcium [Mass/Vol]8.8 mg/dL8.5 - 10.5 mg/dLWayne HealthCare Main Campus SystemChloride [Moles/Vol]97 mmol/LLow98 - 109 mmol/LProMedica Health SystemCO2 [Moles/Vol]32 mmol/L22 - 32 mmol/LProMedica Health SystemCreatinine [Mass/Vol]0.7 mg/dL0.40 - 1.00 mg/dLUniversity Hospitals Beachwood Medical CenterComment on above:METHOD TRACEABLE TO IDMS STANDARDEGFR Non-Race Dependent- [facility] Community HospitalComment on above: eGFR not reported due to non-numeric value for Creatinine. Reported eGFR is based on the CKD-EPI 2020 equation that does not use a race coefficient. Glucose [Mass/Vol]194 mg/bFSwdf61 - 99 mg/dLUniversity Hospitals Beachwood Medical Center Interpretation and review of laboratory resultsAbnormWilson Memorial Hospital Potassium [Moles/Vol]3.5 mmol/L3.5 - 5.0 mmol/LProMedFort Hamilton Hospital SystemProtein [Mass/Vol]6.4 g/dL6.0 - 8.0 g/dLUNC Health Appalachianodium [Moles/Vol]141 mmol/L134 - 146 mmol/LProMedica Providence Hospital SystemUrea nitrogen [Mass/Vol]17 mg/dL5 - 27 mg/dLUniversity Hospitals Beachwood Medical CenterLight Blue Topon 40-13-5829Qeeeb TubeAuto ResultedWarren State HospitalMAGNESIUMon 01-01-2025 Magnesium [Mass/Vol]2.1 mg/dLNormal1.8-2.6M[facility] County HospitalComment on above:Performed By: #### MG ####[facility] ([address] [address] VIRMagnesiumon 87-16-4832Xzigrblykjsjnl and review of laboratory resultsNormalWayne HealthCare Main Campus SystemMagnesium [Mass/Vol]2.1 mg/dL1.8 - 2.6 mg/dLUniversity Hospitals Beachwood Medical CenterNo Panel Informationon 01-01-2025 [facility] Medical CenterPOTASSIUMon 05-59-5347Xrxjwlxxn [Moles/Vol]4.3 mmol/L Normal3.5-5.0M[facility] County HospitalComment on above:Performed By: #### K ####[facility] ([address] [address] VIRPotassiumon 73-45-0346Xdhlbxnyukojkq and review of laboratory results NormalUniversity Hospitals Beachwood Medical CenterPotassium [Moles/Vol]4.3 mmol/L3.5 - 5.0 mmol/L Warren State HospitalBEDSIDE GLUCOSEon 12-31-2024 Glucose [Mass/Vol]189 mg/bAHtwf20-70OfoQsbrafMorrow County HospitalComment on above: Performed By: #### BEDG ####[facility] ([facility])[address], [id number] VIRGlucose [Mass/Vol]242 mg/aUDzjn82-69HqiUdetqvMorrow County HospitalComment on above:Performed By: #### BEDG ####[facility] ([facility])[address], [id number] VIRGlucose [Mass/Vol] 321 mg/rPGffq38-00FqpSznxaiBaylor Scott & White Medical Center – GrapevineComment on above:Performed By: #### BEDG ####[facility] ([facility])[address] [place], [place] [address]E.[place], [place] [address] VIRBedside Glucose *Place/Obtain serum glucose if >500 per glucometer.on 64-26-7120Xizkzfw [Mass/Vol]198 mg/mYNkie25 - 99 mg/dLUniversity Hospitals Beachwood Medical Center Interpretation and review of laboratory resultsAbnoPsychiatric hospital, demolished 2001CBC WITH AUTO DIFFERENTIALon 81-64-6573SYVZQIHGK ABSOLUTE COUNT (10*3/UL) BY AUTOMATED COUNT0.0 10*3/uLNormal0.0-0.2PSelect [facility] [place] on above:Result Comment: This is an appended report. These results have been appended to a previously preliminary verified report.Performed By: #### CBCA ####[facility] ([facility])[address] [facility].[place], [id number] VIRBASOPHILS RELATIVE PERCENT BY AUTOMATED COUNT0.4 %Normal [facility] on above:Result Comment: This is an appended report. These results have been appended to a previously preliminary verified report.Performed By: #### CBCA ####[facility] ([facility])[address] [place], [place] [address]E.[place], [id number] VIRCELLAVISION ANISOCYTOSIS IN BLOOD BY LIGHT MICROSCOPY2+NormalUC West Chester Hospital on above:Result Comment: This is an appended report. These results have been appended to a previously preliminary verified report.Performed By: #### CBCA ####[facility] ([address], [id number] VIRCELLAVISION DIFFERENTIAL TYPEAUTOMATED DIFFERENTIALNormalUC [facility] Hospital on above:Result Comment: This is an appended report. These results have been appended to a previously preliminary verified report.Performed By: #### CBCA ####[facility] ([address], [id number] VIRCELLAVISION HYPOCHROMIA IN BLOOD BY LIGHT MICROSCOPY2+NormalMorrow County HospitalComascension standish hospital on above:Result Comment: This is an appended report. These results have been appended to a previously preliminary verified report. Performed By: #### CBCA ####[address], [id number] VIRCELLAVISION RBC MORPHOLOGYReviewedNormalMorrow County HospitalComascension standish hospital on above:Result Comment: This is an appended report. These results have been appended to a previously preliminary verified report. Performed By: #### CBCA ####[facility] ([address], [id number] VIREosinophils (Bld) [#/Vol]0.0 10*3/uLNormal0.0-0.4 [facility] on above:Result Comment: This is an appended report. These results have been appended to a previously preliminary verified report.Performed By: #### CBCA ####[facility] ([address], [id number] VIREOSINOPHILS RELATIVE PERCENT BY AUTOMATED COUNT0.2 %[facility] SystemComascension standish hospital on above:Result Comment: This is an appended report. These results have been appended to a previously prelimi nary verified report.Performed By: #### CBCA ####[facility] ([address], [id number] VIRErythrocyte distribution width (RBC) [Ratio]23.3 %High11.5-15M[facility] County HospitalComment on above: Performed By: #### CBCA ####[facility] ([facility])[address] [place] [address].[place], [id number] VIRHematocrit (Bld) [Volume fraction]33.6 %Evr60-46 [facility] HospitalComment on above:Performed By: #### CBCA ####[facility]ITALAriana [facility] ([facility])[address] [place] [address].[place], [id number] VIRHemoglobin (Bld) [Mass/Vol]10.6 g/dLLow11.7-15.5PCincinnati VA Medical CenterComment on above: Performed By: #### CBCA ####[facility] ([address], [id number] VIRLYMPHOCYTES ABSOLUTE COUNT (10*3/UL) BY AUTOMATED COUNT0.5 10*3/uLLow1.0-3.5PCincinnati VA Medical CenterComment on above:Result Comment: This is an appended report. These results have been appended to a previously preliminary verified report.Performed By: #### CBCA ####[facility] ([address], [id number] VIR LYMPHOCYTES RELATIVE PERCENT BY AUTOMATED COUNT9.2 %NormalProBaylor Scott & White Medical Center – GrapevineComascension standish hospital on above:Result Comment: This is an appended report. These results have been appended to a previously preliminary verified report.Performed By: #### CBCA ####[facility] ([facility])[address] [place] [address], [id number] VIRMCH (RBC) [Entitic mass]25.9 rgLun04-42TaeQddealMorrow County HospitalComment on above:Performed By: #### CBCA ####[facility] ([address], [id number] VIRMCHC (RBC) [Mass/Vol]31.4 g/iTIxx56-81BcxNdyztcBaylor Scott & White Medical Center – GrapevineComment on above:Performed By: #### CBCA ####[facility]ITALAriana [facility] ([facility])[address] [place] [address], [id number] VIRMCV (RBC) [Entitic vol]83 aMJuspfb78-672DoeYgzuxi Fremont HospitalComment on above:Performed By: #### CBCA ####[facility] ([facility])[address] [place] [address], [id number] VIRMONOCYTES ABSOLUTE COUNT (10*3/UL) BY AUTOMATED COUNT0.0 10*3/uLNormal0.0-0.9M[facility] County HospitalComascension standish hospital on above:Result Comment: This is an appended report. These results have been appended to a previously preliminary verified report.Performed By: #### CBCA ####[facility]ITALAriana [facility] ([address], [id number] VIRMONOCYTES RELATIVE PERCENT BY AUTOMATED COUNT0.8 %NormalProBaylor Scott & White Medical Center – GrapevineComment on above:Result Comment: This is an appended report. These results have been appended to a previously preliminary verified report.Performed By: #### CBCA ####[facility]ITALAriana [facility] ([address], [id number] VIRNEUTROPHILS ABSOLUTE COUNT BY AUTOMATED COUNT4.5 10*3/uL Normal1.5-6.6Morrow County HospitalComment on above:Result Comment: This is an appended report. These results have been appended to a previously preliminary verified report.Performed By: #### CBCA ####[facility] ([address], [id number] VIRNEUTROPHILS RELATIVE PERCENT BY AUTOMATED COUNT89.4 %NormalProBaylor Scott & White Medical Center – GrapevineComment on above:Result Comment: This is an appended report. These results have been appended to a previously preliminary verified report.Performed By: #### CBCA ####[facility] ([facility])[address] [place] [address] AVE.[place], [id number] VIRPlatelet mean volume (Bld) [Entitic vol]7.3 fLNormal7-12PCincinnati VA Medical CenterComment on above:Performed By: #### CBCA ####[facility] ([address], [id number] VIRPlatelets (Bld) [#/Vol]282 10*3/uL Pcrxib783-257TicUhrfavBaylor Scott & White Medical Center – GrapevineComment on above:Performed By: #### CBCA ####[facility] ([facility])[address] [place] [address].[place], [id number] VIRRBC COUNT4.08 X10E12/LNormal3.8-5.2PCincinnati VA Medical CenterComment on above:Performed By: #### CBCA ####[facility] ([address], [id number] VIRWBC (Bld) [#/Vol]5.0 10*3/uLNormal4-11 [facility] County HospitalComment on above:Performed By: #### CBCA ####[facility] ([facility])[address] [place] [address].[place], [id number] VIRCBC auto differentialon [id number] Ql (Bld)2+[facility] Medical CenterComment on above:This is an appended report. These results have been appended to a previously preliminary verified report.Basophils (Bld) [#/Vol]0 10*3/uL0.0 - 0.2 10*3/uLUniversity Hospitals Beachwood Medical CenterComment on above:This is an appended report. These results have been appended to a previously preliminary verified report. Basophils/100 WBC (Bld)0.4 %[facility] Medical CenterComment on above:This is an appended report. These results have been appended to a previously preliminary verified report.Differential cell count method Nom (Bld)AUTOMATED DIFFERENTIAL [facility] Medical CenterComment on above:This is an appended report. These results have been appended to a previously preliminary verified report. Eosinophils (Bld) [#/Vol]0 10*3/uL0.0 - 0.4 10*3/uLUniversity Hospitals Beachwood Medical Center Comment on above:This is an appended report. These results have been appended to a previously preliminary verified report.Eosinophils/100 WBC (Bld)0.2 % [facility] Medical CenterComment on above:This is an appended report. These results have been appended to a previously preliminary verified report. Erythrocyte distribution width (RBC) [Ratio]23.3 %High11.5 - 15 %[facility] Medical CenterHematocrit (Bld) [Volume fraction]33.6 %Low35 - 47 %[facility] Medical CenterHemoglobin (Bld) [Mass/Vol]10.6 g/dLLow11.7 - 15.5 g/dLUniversity Hospitals Beachwood Medical CenterHypochromia Ql (Bld)2+[facility] Medical CenterComment on above:This is an appended report. These results have been appended to a previously preliminary verified report.Interpretation and review of laboratory results AbnormalUniversity Hospitals Beachwood Medical CenterLymphocytes (Bld) [#/Vol]0.5 10*3/uLLow1.0 - 3.5 10*3/uLUniversity Hospitals Beachwood Medical CenterComment on above:This is an appended report. These results have been appended to a previously preliminary verified report. Lymphocytes/100 WBC (Bld)9.2 %[facility] Medical CenterComment on above:This is an appended report. These results have been appended to a previously preliminary verified report.MCH (RBC) [Entitic mass]25.9 pgLow27 - 34 [facility] Medical CenterMCHC (RBC) [Mass/Vol]31.4 g/dLLow32 - 36 g/dLUniversity Hospitals Beachwood Medical CenterMCV (RBC) [Entitic vol]83 fL80 - 100 [facility] HospitalMonocytes (Bld) [#/Vol]0 10*3/uL0.0 - 0.9 10*3/uLUniversity Hospitals Beachwood Medical CenterComment on above:This is an appended report. These results have been appended to a previously preliminary verified report.Monocytes/100 WBC (Bld)0.8 %[facility] Comment on above:This is an appended report. These results have been appended to a previously preliminary verified report.Neutrophils (Bld) [#/Vol]4.5 10*3/uL 1.5 - 6.6 10*3/[facility] HospitalComment on above:This is an appended report. These results have been appended to a previously preliminary verified re port.Neutrophils/100 WBC (Bld)89.4 %[facility] Medical CenterComment on above:This is an appended report. These results have been appended to a previously preliminary verified report.Platelet mean volume (Bld) [Entitic vol]7.3 fL7 - 12 [facility] HospitalPlatelets (Bld) [#/Vol]282 10*3/[facility] HospitalRBC (Bld) [#/Vol]4.08 10*6/[facility] (Bld) [#/Vol] ReviewedUniversity Hospitals Beachwood Medical CenterComment on above:This is an appended report. These results have been appended to a previously preliminary verified report.WBC LM Ql (Sput)5PExcela Westmoreland HospitalCOMPREHENSIVE METABOLIC PANELon 58-84-6627Ldocrsn [Mass/Vol]3.1 g/dLLow3.2-5.3PCincinnati VA Medical CenterComment on above:Performed By: #### CMP ####[facility] ([facility])[address] [place] [address] [place] [address] VIRALP [Catalytic activity/Vol]81 U/AMnewpo95-433ZcyIissjaMorrow County HospitalComment on above: Performed By: #### CMP ####[facility] ([facility])[address] [place] [address] [place] [address] VIRALT [Catalytic activity/Vol]12 U/LNormal<=31 [facility] HospitalComment on above:Performed By: #### CMP ####[facility] ([address] [place] [address] VIRAnion gap [Moles/Vol]13 mmol/LNormal5-15Morrow County HospitalComment on above: Performed By: #### CMP ####[facility] ([address] [place] [address] VIRAST [Catalytic activity/Vol]13 U/LNormal<=41 [facility] HospitalComment on above:Performed By: #### CMP ####[facility] ([address] [place] [address] VIRBilirubin [Mass/Vol]0.8 mg/dLNormal0.3-1.2PCincinnati VA Medical CenterComment on above: Performed By: #### CMP ####[facility] ([address] [place] [address] VIRCalcium [Mass/Vol]8.1 mg/dLLow8.5-10.5PCincinnati VA Medical CenterComment on above:Performed By: #### CMP ####[facility] ([address] [address] VIRChloride [Moles/Vol]96 mmol/GBcl04-781GjsHwvjrnBaylor Scott & White Medical Center – GrapevineComment on above: Performed By: #### CMP ####[facility] ([address] [place] [address] VIRCO2 [Moles/Vol]29 mmol/CVclbwk82-30ZhjOnlfjoCincinnati VA Medical CenterComment on above:Performed By: #### CMP ####[facility] ([address] [place] [address] VIRCreatinine [Mass/Vol]0.65 mg/dLNormal0.40-1.00ProBaylor Scott & White Medical Center – GrapevineComment on above: Result Comment: METHOD TRACEABLE TO IDMS STANDARDPerformed By: #### CMP ####[facility] ([address], [place] [address] VIREGFR (CKD-EPI) NON-RACE DEPENDENT>^90Normal>=60ProBaylor Scott & White Medical Center – GrapevineComment on above:Result Comment: eGFR not reported due to non-numeric value for Creatinine.Reported eGFR is based ontheCKD-EPI 2020 equation that doesnot use a race coefficient.Performed By: #### CMP ####[facility] ([address] [place] [address] VIRGlucose [Mass/Vol]182 mg/aYEzqc78-19IhzSsqpcbBaylor Scott & White Medical Center – GrapevineComment on above:Performed By: #### CMP ####[facility] ([address] [place] [address] VIRPotassium [Moles/Vol]2.8 mmol/LLow3.5-5.0Morrow County HospitalComment on above:Performed By: #### CMP ####[facility] ([address] [place] [address] VIRProtein [Mass/Vol]5.9 g/dLLow6.0-8.0ProBaylor Scott & White Medical Center – GrapevineComment on above:Performed By: #### CMP ####[facility] ([address] [place] [address] VIRSodium [Moles/Vol]138 mmol/VQzkred601-022PskRpjmtu Fremont HospitalComment on above:Performed By: #### CMP ####[facility] ([address] [place] [address] VIRUrea nitrogen [Mass/Vol]13 mg/dLNormal5-27ProBaylor Scott & White Medical Center – GrapevineComment on above:Performed By: #### CMP ####[facility] ([address] [place] [address] VIRComprehensive metabolic panelon 40-21-4652Xywyppb [Mass/Vol]3.1 g/dLLow3.2 - 5.3 g/dLProParkwood Hospital SystemALP [Catalytic activity/Vol]81 U/L39 - 130 U/LProMedKindred HealthcareALT No additional P-5'-P [Catalytic activity/Vol]12 U/LNINF - 31 U/LProMedica Health SystemAnion gap [Moles/Vol]13 mmol/L5 - 15 mmol/LProMedica Health SystemAST [Catalytic activity/Vol]13 U/LNINF - 41 U/LProMedica Health SystemBilirubin [Mass/Vol]0.8 mg/dL0.3 - 1.2 mg/dLProParkwood Hospital SystemCalcium [Mass/Vol]8.1 mg/dLLow8.5 - 10.5 mg/dLProCrossbridge Behavioral Health Health SystemChloride [Moles/Vol]96 mmol/LLow98 - 109 mmol/L [facility] Medical CenterCO2 [Moles/Vol]29 mmol/L22 - 32 mmol/LPrBanner Fort Collins Medical Center Health SystemCreatinine [Mass/Vol]0.65 mg/dL0.40 - 1.00 mg/dLWayne HealthCare Main Campus System Comment on above:METHOD TRACEABLE TO IDMS STANDARDEGFR Non-Race Dependent- PINF [facility] CenterComment on above:eGFR not reported due to non-numeric value for Creatinine. Reported eGFR is based on the CKD-EPI 2020 equation that does not use a race coefficient. Glucose [Mass/Vol]182 mg/kKRnvp22 - 99 mg/dLUniversity Hospitals Beachwood Medical Center Interpretation and review of laboratory resultsAbnormalProParkwood Hospital System Potassium [Moles/Vol]2.8 mmol/LLow3.5 - 5.0 mmol/LPrGeneral Leonard Wood Army Community Hospitalica Health SystemProtein [Mass/Vol]5.9 g/dLLow6.0 - 8.0 g/dLWayne HealthCare Main Campus SystemSodium [Moles/Vol]138 mmol/L134 - 146 mmol/[facility] Mansfieldica Health SystemUrea nitrogen [Mass/Vol]13 mg/dL5 - 27 mg/dLWayne HealthCare Main Campus SystemMAGNESIUMon 94-95-8679Ctpaqvtha [Mass/Vol]2.0 mg/dLNormal1.8-2.6Morrow County HospitalComment on above:Performed By: #### MG ####[facility] ([address] [place] [address] VIRMagnesiumon 38-73-3666Haplydqcdrnfwt and review of laboratory results NormalProMedica Health SystemMagnesium [Mass/Vol]2 mg/dL1.8 - 2.6 mg/dLWayne HealthCare Main Campus SystemNo Panel Informationon 05-99-2429EtySpzefy Health SystemPOTASSIUM on 99-74-8322Ldtnjxgna [Moles/Vol]3.3 mmol/LLow3.5-5.0[facility] Comment on above:Performed By: #### K ####[facility] HOS[facility]ITALAriana [facility] ([facility])[address] [place] [address] VIRPotassium [Moles/Vol]3.1 mmol/LLow 3.5-5.0Morrow County HospitalComment on above:Performed By: #### K ####[facility] ([facility])[address] [place] [address] VIRPotassiumon 67-50-0285Akajfnxzmauxnw and review of laboratory results AbnormalProCrossbridge Behavioral Health Health SystemPotassium [Moles/Vol]3.3 mmol/LLow3.5 - 5.0 mmol/LProMedica Health SystemProCrossbridge Behavioral Health Health SystemInterpretation and review of laboratory resultsAbnormalMiddletown Hospital Health SystemPotassium [Moles/Vol]3.1 mmol/LLow3.5 - 5.0 mmol/LProMedica Health SystemMiddletown Hospital Health SystemAPTTon 84-04-1829jRPX Coag (PPP) [Time]32 sPrMercy Health Lorain Hospital SystemInterpretation and review of laboratory resultsNormalWayne HealthCare Main Campus SystemaPTT Coag (Bld) [Time] 32 wSbzvxi95-32DkyMwbtyjBaylor Scott & White Medical Center – GrapevineComment on above:Performed By: #### PTT ####[facility] ([facility])[address] [place] [address] VIRB-TYPE NATRIURETIC PEPTIDEon 47-32-7392Dkramcnqsoo peptide B (Bld) [Mass/Vol]248 pg/mLHigh<=100Morrow County HospitalComment on above:Performed By: #### BNP ####[facility] ([facility])[address] [place] [address] VIRB-type natriuretic peptideon 37-61-5127Qmyfuzaqdhrtdq and review of laboratory resultsAbnormWilson Memorial HospitalNatriuretic peptide B (Bld) [Mass/Vol]248 pg/mLHighNINF - 100 pg/mLTrinity HealthBEDSIDE GLUCOSEon 72-03-3186Ehopnae [Mass/Vol]198 mg/dL Gduk48-36XfiLqnmlrUC [facility] on above:Performed By: #### BEDG ####[facility] ([facility])[address] [facility], [id number] VIRCBC WITH AUTO DIFFERENTIALon 63-33-4156KAVDGOSNX ABSOLUTE COUNT (10*3/UL) BY AUTOMATED COUNT0.0 10*3/uLNormal0.0-0.2ProMedKaiser Foundation Hospital on above:Result Comment: This is an appended report. These results have been appended to a previously preliminary verified report.Performed By: #### CBCA ####[facility] ([facility])[address] [place] [address], [id number] VIRBASOPHILS RELATIVE PERCENT BY AUTOMATED COUNT0.2 %NormalUC West Chester Hospital on above:Result Comment: This is an appended report. These results have been appended to a previously preliminary verified report.Performed By: #### CBCA ####[facility] ([address], [id number] VIRCELLAVISION ANISOCYTOSIS IN BLOOD BY LIGHT MICROSCOPY2+ NormalUC West Chester Hospital on above:Result Comment: This is an appended report. These results have been appended to a previously preliminary verified report.Performed By: #### CBCA ####[facility] ([address], [id number] VIRCELLAVISION DIFFERENTIAL TYPE AUTOMATED DIFFERENTIALNormalUC West Chester Hospital on above:Result Comment: This is an appended report. These results have been appended to a previously preliminary verified report.Performed By: #### CBCA ####[facility] ([facility])[address] [place] [address], [id number] VIR CELLAVISION ELLIPTOCYTES IN BLOOD BY LIGHT MICROSCOPY1+[facility] on above:Result Comment: This is an appended report. These results have been appended to a previously preliminary verified report.Performed By: #### CBCA ####[facility] ([address], [id number] VIREosinophils (Bld) [#/Vol]0.2 10*3/uLNormal0.0-0.4 [facility] on above:Result Comment: This is an appended report. These results have been appended to a previously preliminary verified report.Performed By: #### CBCA ####[address], [id number] VIREOSINOPHILS RELATIVE PERCENT BY AUTOMATED COUNT2.3 %NormalMorrow County HospitalComascension standish hospital on above:Result Comment: This is an appended report. These results have been appended to a previously prelimi nary verified report.Performed By: #### CBCA ####[facility] ([address], [id number] VIRErythrocyte distribution width (RBC) [Ratio]23.8 %High11.5-15Morrow County HospitalComment on above: Performed By: #### CBCA ####[facility] ([address], [id number] VIRHematocrit (Bld) [Volume fraction]35.3 %Jbwusf87-60 Mor[facility] County HospitalComascension standish hospital on above:Performed By: #### CBCA ####[facility] ([address], [id number] VIRHemoglobin (Bld) [Mass/Vol]11.0 g/dLLow11.7-15.5PCincinnati VA Medical CenterComment on above: Performed By: #### CBCA ####[facility] ([address], [id number] VIRLYMPHOCYTES ABSOLUTE COUNT (10*3/UL) BY AUTOMATED COUNT0.4 10*3/uLLow1.0-3.5PCincinnati VA Medical CenterComment on above:Result Comment: This is an appended report. These results have been appended to a previously preliminary verified report.Performed By: #### CBCA ####[facility] ([address], [id number] VIR LYMPHOCYTES RELATIVE PERCENT BY AUTOMATED COUNT5.4 %NormalProBaylor Scott & White Medical Center – GrapevineComment on above:Result Comment: This is an appended report. These results have been appended to a previously preliminary verified report.Performed By: #### CBCA ####[facility] ([address], [id number] VIRMCH (RBC) [Entitic mass]25.9 lmTaw59-53VgwQmqzknBaylor Scott & White Medical Center – GrapevineComment on above:Performed By: #### CBCA ####[facility] ([address], [id number] VIRMCHC (RBC) [Mass/Vol]31.2 g/kXOrp69-96GmtSgfgugMorrow County HospitalComment on above:Performed By: #### CBCA ####[facility] ([address], [id number] VIRMCV (RBC) [Entitic vol]83 zMGurhir33-939YatFuuspf Fremont HospitalComment on above:Performed By: #### CBCA ####[facility] ([address], [id number] VIRMONOCYTES ABSOLUTE COUNT (10*3/UL) BY AUTOMATED COUNT0.2 10*3/uLNormal0.0-0.9Morrow County HospitalComascension standish hospital on above:Result Comment: This is an appended report. These results have been appended to a previously preliminary verified report.Performed By: #### CBCA ####[facility] ([facility])[address] [place] [address], [id number] VIRMONOCYTES RELATIVE PERCENT BY AUTOMATED COUNT3.3 %NormalMorrow County HospitalComascension standish hospital on above:Result Comment: This is an appended report. These results have been appended to a previously preliminary verified report.Performed By: #### CBCA ####[facility] ([address], [id number] VIRNEUTROPHILS ABSOLUTE COUNT BY AUTOMATED COUNT6.5 10*3/uL Normal1.5-6.6Morrow County HospitalComascension standish hospital on above:Result Comment: This is an appended report. These results have been appended to a previously preliminary verified report.Performed By: #### CBCA ####[facility] ([address], [id number] VIRNEUTROPHILS RELATIVE PERCENT BY AUTOMATED COUNT88.8 %NormalMorrow County HospitalComment on above:Result Comment: This is an appended report. These results have been appended to a previously preliminary verified report.Performed By: #### CBCA ####[facility]ITALAriana [facility] ([address], [id number] VIRPlatelet mean volume (Bld) [Entitic vol]7.2 fLNormal7-12ProMed[facility] The Valley Medical CenterComment on above:Performed By: #### CBCA ####[facility] ([address], [id number] VIRPlatelets (Bld) [#/Vol]276 10*3/uL Npvgtm749-449ZscUhgqvuBaylor Scott & White Medical Center – GrapevineComment on above:Performed By: #### CBCA ####[facility] ([facility])[address] [place] [address].[place], [id number] VIRRBC COUNT4.26 X10E12/LNormal3.8-5.2ProMedica Queen Of The Valley Medical CenterComment on above:Performed By: #### CBCA ####[facility] ([facility])[address] [place] [address], [id number] VIRWBC (Bld) [#/Vol]7.3 10*3/uLNormal4-11 [facility] HospitalComment on above:Performed By: #### CBCA ####[facility] ([facility])[address] [place] [address], [id number] VIRCBC auto differentialon 16-99-0549Fgeswpjjjqcz Ql (Bld)2+[facility] CenterComment on above:This is an appended report. These results have been appended to a previously preliminary verified report.Basophils (Bld) [#/Vol]0 10*3/uL0.0 - 0.2 10*3/uLProParkwood Hospital SystemComment on above:This is an appended report. These results have been appended to a previously preliminary verified report. Basophils/100 WBC (Bld)0.2 %[facility] Medical CenterComment on above:This is an appended report. These results have been appended to a previously preliminary verified report.Differential cell count method Nom (Bld)AUTOMATED DIFFERENTIAL [facility] Medical CenterComment on above:This is an appended report. These results have been appended to a previously preliminary verified report. Elliptocytes LM Ql (Bld)1+[facility] Campus SystemComment on above:This is an appended report. These results have been appended to a previously preliminary verified report.Eosinophils (Bld) [#/Vol]0.2 10*3/uL0.0 - 0.4 10*3/uLProOhiohealth Doctors Hospitalca Providence Hospital SystemComment on above:This is an appended report. These results have been appended to a previously preliminary verified report.Eosinophils/100 WBC (Bld)2.3 %[facility] Medical CenterComment on above:This is an appended report. These results have been appended to a previously preliminary verified report. Erythrocyte distribution width (RBC) [Ratio]23.8 %High11.5 - 15 %ProMedica Health SystemHematocrit (Bld) [Volume fraction]35.3 %35 - 47 %[facility] Medical CenterHemoglobin (Bld) [Mass/Vol]11 g/dLLow11.7 - 15.5 g/dLUniversity Hospitals Beachwood Medical CenterInterpretation and review of laboratory resultsAbnormalUniversity Hospitals Beachwood Medical CenterLymphocytes (Bld) [#/Vol]0.4 10*3/uLLow1.0 - 3.5 10*3/uLWayne HealthCare Main Campus SystemComment on above:This is an appended report. These results have been appended to a previously preliminary verified report.Lymphocytes/100 WBC (Bld) 5.4 %[facility] Medical CenterComment on above:This is an appended report. These results have been appended to a previously preliminary verified report.MCH (RBC) [Entitic mass]25.9 pgLow27 - 34 [facility] Medical CenterMCHC (RBC) [Mass/Vol] 31.2 g/dLLow32 - 36 g/dLUniversity Hospitals Beachwood Medical CenterMCV (RBC) [Entitic vol]83 fL80 - 100 [facility] HospitalMonocytes (Bld) [#/Vol]0.2 10*3/uL0.0 - 0.9 10*3/uL [facility] CenterComment on above:This is an appended report. These results have been appended to a previously preliminary verified report. Monocytes/100 WBC (Bld)3.3 %[facility] Medical CenterComment on above:This is an appended report. These results have been appended to a previously preliminary verified report.Neutrophils (Bld) [#/Vol]6.5 10*3/uL1.5 - 6.6 10*3/uLUniversity Hospitals Beachwood Medical CenterComment on above:This is an appended report. These results have been appended to a previously preliminary verified report.Neutrophils/100 WBC (Bld)88.8 %[facility] Medical CenterComment on above:This is an appended report. These results have been appended to a previously preliminary verified report. Platelet mean volume (Bld) [Entitic vol]7.2 fL7 - 12 [facility] Platelets (Bld) [#/Vol]276 10*3/uLUniversity Hospitals Beachwood Medical CenterRBC (Bld) [#/Vol]4.26 10*6/uLUniversity Hospitals Beachwood Medical CenterWBC LM Ql (Sput)7.3PEncompass Health Rehabilitation Hospital of HarmarvilleCOMPREHENSIVE METABOLIC PANELon 89-90-0047Oerjlwl [Mass/Vol]3.4 g/dLNormal3.2-5.3PCincinnati VA Medical CenterComment on above: Performed By: #### CMP ####[facility] ([facility])[address] [place], [place] [address] [place] [address] VIRALP [Catalytic activity/Vol]87 U/FDvsngo44-898 [facility] HospitalComment on above:Performed By: #### CMP ####[facility] ([address] [place] [address] VIRALT [Catalytic activity/Vol]14 U/LNormal<=31PCincinnati VA Medical CenterComment on above:Performed By: #### CMP ####[facility] ([address] [place] [address] VIRAnion gap [Moles/Vol]12 mmol/LNormal5-15 [facility] HospitalComment on above:Performed By: #### CMP ####[facility] ([address] [place] [address] VIRAST [Catalytic activity/Vol]18 U/LNormal<=41M[facility] County HospitalComment on above:Performed By: #### CMP ####[facility] ([address] [place] [address] VIRBilirubin [Mass/Vol]0.9 mg/dLNormal0.3-1.2 [facility] HospitalComment on above:Performed By: #### CMP ####[facility] ([address] [place] [address] VIRCalcium [Mass/Vol]8.2 mg/dLLow8.5-10.5PCincinnati VA Medical CenterComment on above: Performed By: #### CMP ####[facility] ([address] [place] [address] VIRChloride [Moles/Vol]93 mmol/GYkh77-945FzbSzrmnlBaylor Scott & White Medical Center – GrapevineComment on above:Performed By: #### CMP ####[facility] ([address] [address] VIRCO2 [Moles/Vol]29 mmol/KEoxseq40-07HlsBkgavq Queen Of The Valley Medical CenterComment on above:Performed By: #### CMP ####[facility] ([address] [place] [address] VIRCreatinine [Mass/Vol]0.87 mg/dLNormal0.40-1.00Morrow County HospitalComment on above:Result Comment: METHOD TRACEABLE TO IDMS STANDARD Performed By: #### CMP ####[facility] ([address] [address] VIRGFR/1.73 sq M.predicted among non-blacks MDRD (S/P/Bld) [Vol rate/Area]74 mL/min/{1.73_m2}Normal>=60[facility] Comment on above:Result Comment: eGFR not reported due to non-numeric value for Creatinine.Reported eGFR is based ontheCKD-EPI 1 equation that doesnot use a race coefficient.Performed By: #### CMP ####[facility] ([address] [place] [address] VIRGlucose [Mass/Vol]216 mg/dLHigh 65-99ProBaylor Scott & White Medical Center – GrapevineComment on above:Performed By: #### CMP ####[facility] ([address] [address] VIRPotassium [Moles/Vol]2.8 mmol/LLow3.5-5.0[facility] Comment on above:Performed By: #### CMP ####[facility])[address] [place] [address] VIRProtein [Mass/Vol]6.3 g/dLNormal 6.0-8.0M[facility] County HospitalComment on above:Performed By: #### CMP ####[facility] ([facility])[address], [place] [address] VIRSodium [Moles/Vol]134 mmol/SQykqen778-694HweWgisge [facility] Comment on above:Performed By: #### CMP ####[facility] ([facility])[address] [place] [address] [place] [address] VIRUrea nitrogen [Mass/Vol]17 mg/dL Normal5-27ProBaylor Scott & White Medical Center – GrapevineComment on above:Performed By: #### CMP ####[address], [place] [address] VIRCT CTA CHESTon 62-09-7636FG CTA CHESTNormalProBaylor Scott & White Medical Center – GrapevineCT Chest WO and CT angiogram Coronary arteries W contrast Atiya 66-96-1328BA CTA CHEST CLINICAL INFORMATION: elevated dimer, hypoxia [...] Prominent atherosclerotic calcifications in the aorta. Severe sitka coronary artery calcifications. There is prominence of [...] Attention on follow-up studies recommended. Finalized by Arutr Rosen MD on 12/30/2024 5:07 PMSECTRAPAArtur Rosen [...] Prominent atherosclerotic calcifications in the aorta. Severe sitka coronary artery calcifications. There is prominence of [...] Artur Rosen MD on 12/30/2024 5:07 PM SETRadiology Study observation (narrative)[facility] HospitalAudioSnaps SystemCT Chest WO and CT angiogram Coronary arteries W contrast IVOrdered By: Artur Rosen on 82-00-2142TdfLmjxaemth sense Work Phone: Comprehensive metabolic panelon 18-33-8323Mqthorw [Mass/Vol]3.4 g/dL3.2 - 5.3 g/dLWayne HealthCare Main Campus SystemALP [Catalytic activity/Vol]87 U/L39 - 130 U/[facility] SystemALT No additional P-5'-P [Catalytic activity/Vol]14 U/LNINF - 31 U/[facility] SystemAnion gap [Moles/Vol]12 mmol/L5 - 15 mmol/LPrBanner Fort Collins Medical [facility] Health SystemAST [Catalytic activity/Vol]18 U/LNINF - 41 U/[facility] SystemBilirubin [Mass/Vol]0.9 mg/dL0.3 - 1.2 mg/dLUniversity Hospitals Beachwood Medical CenterCalcium [Mass/Vol]8.2 mg/dLLow8.5 - 10.5 mg/dLUniversity Hospitals Beachwood Medical CenterChloride [Moles/Vol]93 mmol/LLow98 - 109 mmol/L [facility] Beach[facility] Medical CenterCO2 [Moles/Vol]29 mmol/L22 - 32 mmol/[facility] SystemCreatinine [Mass/Vol]0.87 mg/dL0.40 - 1.00 mg/dLUniversity Hospitals Beachwood Medical Center Comment on above:METHOD TRACEABLE TO IDCT STANDARDEGFR Non-Race Zepykkamr[address] [place], [place] [address]Comment on above:eGFR not reported due to non-numeric value for Creatinine. Reported eGFR is based on the CKD-EPI 2020 equation that does not use a race coefficient. Glucose [Mass/Vol]216 mg/uXMjjw11 - 99 mg/dLUniversity Hospitals Beachwood Medical Center Interpretation and review of laboratory resultsAbnormalUniversity Hospitals Beachwood Medical Center Potassium [Moles/Vol]2.8 mmol/LLow3.5 - 5.0 mmol/[facility] SystemProtein [Mass/Vol]6.3 g/dL6.0 - 8.0 g/dLUNC Health Appalachianodium [Moles/Vol]134 mmol/L134 - 146 mmol/[facility] SystemUrea nitrogen [Mass/Vol]17 mg/dL5 - 27 mg/dLUniversity Hospitals Beachwood Medical CenterD-DIMERon 12-30-2024D DMPPV160 ng/mLHigh1-255 [facility] County HospitalComment on above:Result Comment: Results >255 ng/mL DDU: Results may be indicative of the presence of VTE. The use of the Wells score and further diagnostic tests should be considered. Elevated D-Dimer levels can be associated with DIC, neoplasm, , trauma and liver disease. Elevated levels of rheumatoidfactor may lead to an overestimation of the D-Dimer level.Performed By: #### DDMR ####[address], [place] VIRD-Dimeron 24-41-7333Qgirjo D-dimer DDU (PPP) [Mass/Vol]514 ng/mLHigh1 - 255 ng/mLUniversity Hospitals Beachwood Medical CenterComment on above: Results >255 ng/mL DDU: Results may be indicative of the presence of VTE. The use of the Wells score and further diagnostic tests should be considered. Elevated D-Dimer levels can be associated with DIC, neoplasm, , trauma and liver disease. Elevated levels of rheumatoid factor may leadto an overestimation of the D-Dimer level.MAGNESIUMon 38-41-6491Qpukkdfme [Mass/Vol] 1.9 mg/dLNormal1.8-2.6M[facility] County HospitalComment on above:Performed By: #### MG ####[address] [address] VIRMagnesiumon 51-36-1372Gavisndgegbonv and review of laboratory resultsNormWilson Memorial HospitalMagnesium [Mass/Vol]1.9 mg/dL1.8 - 2.6 mg/dL [facility] Medical CenterNo Panel Informationon 23-09-2656Xpefj TubeAuto Resulted [facility] Hospitalca Health SystemMercy Health Anderson Hospitalca Health System Interpretation and review of laboratory resultsAbnormalBeloit Memorial Hospital SystemPOCT NURSING URINE MACROSCOPIC UAon 27-09-8105RAWPFOPYT NURNegativeNormalNegativeMorrow County HospitalComment on above:Performed By: #### NUM ####[address] [address] VIRBLOOD/HGB NURNegativeNormalNegativeProMedica Edwards HospitalComment on above:Performed By: #### NUM ####[facility] ([address] [address] VIRGLUCOSE NURNegativeNormal NegativeProLancaster Municipal Hospital HospitalComment on above:Performed By: #### NUM ####[facility] ([address] [address] VIRKETONES NURNegativeNormalNegativeSalem Regional Medical Center HospitalComment on above:Performed By: #### NUM ####[facility] ([address] [address] VIRLEUKOCYTE ESTERASE NURNegativeNormalNegative [facility] HospitalComment on above:Performed By: #### NUM ####[facility] ([address] [address] VIRNITRITE NURPositiveAbnormalNegativeMorrow County HospitalComment on above:Performed By: #### NUM ####[facility] ([address] [address] VIRPH NUR7.7Dtuwgs9.0, 6.0, 6.5, 7.0, 7.5, 8.0, 8.5, 5.5 [facility] HospitalComment on above:Performed By: #### NUM ####[facility] ([address] [address] VIRPROTEIN NURNegativeNormalNegativeSalem Regional Medical Center HospitalComment on above:Performed By: #### NUM ####[facility] ([address] [address] VIRSPECIFIC GRAVITY NUR1.988Eougzb7.010, 1.015, 1.020, 1.025ProBaylor Scott & White Medical Center – GrapevineComment on above:Performed By: #### NUM ####[facility] ([place])[address] [place] [address] VIRUROBILINOGEN NUR0.2 E.U./dLNormalProBaylor Scott & White Medical Center – GrapevineComment on above:Performed By: #### NUM ####[facility] ([facility])[address] [place] [address] VIRPOCT Nursing Urine Macroscopic UAon 67-94-0366Sqbjtfifs Ql (U)NegativeNegativeProMedica Health SystemGlucose [Mass/Vol]NegativeNegativeProMedica Health SystemHemoglobin Ql (U)Negative NegativeProMedica Health SystemInterpretation and review of laboratory results AbnormalProMedica Health SystemKetones (U) [Mass/Vol]NegativeNegativeProMedica Health SystemLeukocyte esterase Test strip Ql (U)NegativeNegativeProMedica Health SystemNitrite Ql (U)PositiveAbnormalNegativeProMedica Health SystempH (U) 7.0 [pH]5.0, 6.0, 6.5, 7.0, 7.5, 8.0, 8.5, 5.5ProMedica Health SystemProtein Ql (U)NegativeNegativeProMedica Health SystemSpecific gravity (U) [Rel density] 1.0101.010, 1.015, 1.020, 1.025ProMedica Health SystemUrobilinogen Qn (U) 0.130424809 {Carlos Alberto'U}/dLProMedica Health SystemProMedica Health SystemPROTIME AND INRon 49-08-9106GMY9.0High0.9-1.2PCincinnati VA Medical CenterComment on above: Performed By: #### PINR ####[facility]ITALAriana [facility] ([facility])[address] [place] [address] [id number] VIRPT Coag (PPP) [Time]22.2 sHigh9.8-13.2PCincinnati VA Medical CenterComment on above:Performed By: #### PINR ####[facility] ([facility])[address] [place] [address] [id number] VIRProtime & INRon 25-44-0223LXX Coag (Platelet poor plasma or blood) [Relative time]2High0.9 - 1.2 [facility] Beachwood Medical CenterPT Coag (PPP) [Time]22.2 [facility] Treatment CenterTROP I, HIGH SENSITIVITY 1 HOURon 51-49-1752OICUSPCW I, HIGH SENSITIVITY6 ng/LNormal <16M[facility] County HospitalComment on above:Performed By: #### TNIHS1 ####[facility] ([address] [address] VIRTROPONIN I, HIGH SENSITIVITY 0 HOURon 62-89-7099CGWOAJEQ I, HIGH SENSITIVITY6 ng/LNormal<16ProBaylor Scott & White Medical Center – GrapevineComment on above:Performed By: #### TNIHS0 ####[facility] ([address] [place] [address] VIRTroponin I, High Sensitivity 0 Houron 12-30-2024 Interpretation and review of laboratory resultsE.J. Noble Hospital Troponin I.cardiac High sensitivity method [Mass/Vol]6 ng/LNINF - 16 ng/L [facility] SystemTroponin I, High Sensitivity 1 Houron 77-01-7194Pjzufakvvctwqt and review of laboratory resultsNoTransylvania Regional HospitalTroponin I.cardiac High sensitivity method [Mass/Vol]6 ng/LNINF - 16 ng/LProMedValley Forge Medical Center & HospitalXR CHEST 1 VWon 12-30-2024 XR CHEST 1 [facility] HospitalXR Chest Single viewon 12-30-2024 Single view [...] Richard Landaverde MD on 12/30/2024 3:32 PM [facility] Beach[facility] Medical CenterRadiology Study observation (narrative)[facility] Medical CenterXR Chest Single viewOrdered By: Richard Landaverde on 33-04-7000HpbKnecceUniversity Hospitals Beachwood Medical Center Work Phone: BEDSIDE GLUCOSEon 28-36-5434Lvkzwox [Mass/Vol]126 mg/lRGyod26-63MctJqtwvaBaylor Scott & White Medical Center – GrapevineComment on above:Performed By: #### BEDG ####[facility] ([facility])[address] [place] [address] VIRCBC WITH AUTO DIFFERENTIALon 52-45-9669INMTXEWAK ABSOLUTE COUNT (10*3/UL) BY AUTOMATED COUNT0.2 10*3/uLNormal0.0-0.2PTulane University Medical Centerica [facility] Comment on above:Performed By: #### CBCA ####[facility] ([facility])[address] [place], [place] [address] VIRBASOPHILS RELATIVE PERCENT BY AUTOMATED COUNT1.6 %NormalMorrow County HospitalComment on above:Performed By: #### CBCA ####[facility] ([facility])[address] [place], [place] [address] VIRCELLAVISION DIFFERENTIAL TYPEAUTOMATED DIFFERENTIAL NormalMorrow County HospitalComment on above:Performed By: #### CBCA ####[facility] ([address], [id number] VIREosinophils (Bld) [#/Vol]0.5 10*3/uLHigh0.0-0.4[facility] Comment on above:Performed By: #### CBCA ####[facility] ([address] [place] [place], [id number] VIREOSINOPHILS RELATIVE PERCENT BY AUTOMATED COUNT5.0 %NormalProBaylor Scott & White Medical Center – GrapevineComment on above:Performed By: #### CBCA ####[facility] ([address], [id number] VIRErythrocyte distribution width (RBC) [Ratio]18.8 %High 11.5-15M[facility] County HospitalComment on above:Performed By: #### CBCA ####[facility] ([address], [id number] VIRHematocrit (Bld) [Volume fraction]26.8 %Gfi20-81OdxUqgvfmMorrow County Hospital Comment on above:Performed By: #### CBCA ####[facility] ([address], [id number] VIRHemoglobin (Bld) [Mass/Vol]8.6 g/dL Low11.7-15.5PCincinnati VA Medical CenterComment on above:Performed By: #### CBCA ####[facility] ([address], [id number] VIRLYMPHOCYTES ABSOLUTE COUNT (10*3/UL) BY AUTOMATED COUNT1.4 10*3/uLNormal 1.0-3.5PCincinnati VA Medical CenterComment on above:Performed By: #### CBCA ####[facility] ([address], [id number] VIRLYMPHOCYTES RELATIVE PERCENT BY AUTOMATED COUNT14.4 %NormalProBaylor Scott & White Medical Center – GrapevineComment on above:Performed By: #### CBCA ####[facility] ([facility])[address] [place], [place] [address]E.[place], [id number] VIRMCH (RBC) [Entitic mass] 25.1 yuUnn62-87KoxHqijhlBaylor Scott & White Medical Center – GrapevineComment on above:Performed By: #### CBCA ####[facility] ([facility])[address] [place], [place] [address], [place] [address] VIRMCHC (RBC) [Mass/Vol]32.1 g/yUQwssqt95-02MbqZldfroMorrow County Hospital Comment on above:Performed By: #### CBCA ####[facility] ([address], [id number] VIRMCV (RBC) [Entitic vol]78 fLLow 80-100ProBaylor Scott & White Medical Center – GrapevineComment on above:Performed By: #### CBCA ####[facility] ([facility])[address] [place], [place] [address]E.[place], [id number] VIRMONOCYTES ABSOLUTE COUNT (10*3/UL) BY AUTOMATED COUNT1.0 10*3/uLHigh0.0-0.9 [facility] HospitalComment on above:Performed By: #### CBCA ####[facility] ([address], [id number] VIRMONOCYTES RELATIVE PERCENT BY AUTOMATED COUNT10.3 %NormalProBaylor Scott & White Medical Center – GrapevineComment on above:Performed By: #### CBCA ####[facility] ([address], [id number] VIRNEUTROPHILS ABSOLUTE COUNT BY AUTOMATED COUNT6.8 10*3/uLHigh1.5-6.6ProBaylor Scott & White Medical Center – GrapevineComment on above: Performed By: #### CBCA ####[facility] ([facility])[address] [place], [place] [address]E.[place], [id number] VIRNEUTROPHILS RELATIVE PERCENT BY AUTOMATED COUNT68.7 %NormalProBaylor Scott & White Medical Center – GrapevineComment on above:Performed By: #### CBCA ####[facility] ([address], [id number] VIRPlatelet mean volume (Bld) [Entitic vol]7.4 fLNormal7-12PCincinnati VA Medical CenterComment on above:Performed By: #### CBCA ####[facility] ([facility])[address] [place] [address] AVE.[place], [id number] VIRPlatelets (Bld) [#/Vol]452 10*3/iLSkih895-888DsnOiktcdBaylor Scott & White Medical Center – GrapevineComment on above:Performed By: #### CBCA ####[facility] ([address] [place] [address] VIRRBC COUNT3.43 X10E12/LLow3.8-5.2PCincinnati VA Medical CenterComment on above:Performed By: #### CBCA ####[facility] ([address], [place] VIRWBC (Bld) [#/Vol]9.9 10*3/uLNormal4-11 [facility] HospitalComment on above:Performed By: #### CBCA ####[facility] ([address] [id number] VIR COMPREHENSIVE METABOLIC PANELon 50-83-4390Fdblsgc [Mass/Vol]2.9 g/dLLow3.2-5.3 [facility] HospitalComment on above:Performed By: #### CMP ####[facility] ([address] [place] [address] VIRALP [Catalytic activity/Vol]67 U/CKmntmy12-449HxrNxpdraBaylor Scott & White Medical Center – GrapevineComment on above:Performed By: #### CMP ####[facility] ([place])[address] [place] [address] VIRALT [Catalytic activity/Vol]16 U/LNormal<=31 [facility] HospitalComment on above:Performed By: #### CMP ####[facility] ([place] [address] [place] [address] VIRAnion gap [Moles/Vol]11 mmol/LNormal5-15ProBaylor Scott & White Medical Center – GrapevineComment on above: Performed By: #### CMP ####[facility] ([place] [address] [place] [address] VIRAST [Catalytic activity/Vol]21 U/LNormal<=41 [facility] HospitalComment on above:Performed By: #### CMP ####[facility] ([place] [address] [place] [address] VIRBilirubin [Mass/Vol]0.6 mg/dLNormal0.3-1.2ProMedCox Branson HospitalComment on above: Performed By: #### CMP ####[facility] ([place] [address] [place] [address] VIRCalcium [Mass/Vol]8.4 mg/dLLow8.5-10.5ProMedArrowhead Regional Medical CenterComment on above:Performed By: #### CMP ####[facility] ([place] [address] [place] [address] VIRChloride [Moles/Vol]99 mmol/BClxyyy01-038KnzVueiokBaylor Scott & White Medical Center – GrapevineComment on above: Performed By: #### CMP ####[facility] ([place] [address] [place] [address] VIRCO2 [Moles/Vol]30 mmol/IYmyeav95-31AdzMpqoeqCincinnati VA Medical CenterComment on above:Performed By: #### CMP ####[facility] ([place] [address] [place] [address] VIRCreatinine [Mass/Vol]0.52 mg/dLNormal0.40-1.00ProBaylor Scott & White Medical Center – GrapevineComment on above: Result Comment: METHOD TRACEABLE TO IDMS STANDARDPerformed By: #### CMP ####[facility] ([address] [address] VIREGFR (CKD-EPI) NON-RACE DEPENDENT>^90Normal>=60ProBaylor Scott & White Medical Center – GrapevineComment on above:Result Comment: eGFR not reported due to non-numeric value for Creatinine.Reported eGFR is based ontheCKD-EPI 2020 equation that doesnot use a race coefficient.Performed By: #### CMP ####[facility] ([address] [address] VIRGlucose [Mass/Vol]98 mg/aAGsgcjo69-40AwnNqulztBaylor Scott & White Medical Center – GrapevineComment on above: Performed By: #### CMP ####[facility] ([address] [address] VIRPotassium [Moles/Vol]3.3 mmol/LLow3.5-5.0ProBaylor Scott & White Medical Center – GrapevineComment on above:Performed By: #### CMP ####[address] [address] VIRProtein [Mass/Vol]5.7 g/dLLow6.0-8.0ProBaylor Scott & White Medical Center – GrapevineComment on above:Performed By: #### CMP ####[facility] ([address] [address] VIRSodium [Moles/Vol]140 mmol/SNfrfgs827-677DplPxrtvs Fremont HospitalComment on above:Performed By: #### CMP ####[facility] ([address] [address] VIRUrea nitrogen [Mass/Vol]7 mg/dLNormal5-27ProBaylor Scott & White Medical Center – GrapevineComment on above:Performed By: #### CMP ####[facility] ([address] [address] VIRMAGNESIUMon 62-88-1261Nirjesiho [Mass/Vol]2.0 mg/dL Normal1.8-2.6ProBaylor Scott & White Medical Center – GrapevineComment on above:Performed By: #### MG ####[facility] ([address] [address] VIRURINALYSISon 19-41-6733Guekjyfip Ql (U)NegativeNormalNegativeMorrow County HospitalComment on above:Performed By: #### UA ####[facility] ([address] [address] VIRBLOOD/HGBNegative NormalNegativeMorrow County HospitalComment on above:Performed By: #### UA ####[facility] ([address] [address] VIRColor (U)YellowNormalYellowProBaylor Scott & White Medical Center – GrapevineComment on above: Performed By: #### UA ####[facility] ([address] [address] VIRGlucose Ql (U)NegativeNormalNegative, 250 mg/dL [facility] HospitalComment on above:Performed By: #### UA ####[facility] ([address] [address] VIRKetones Ql (U)NegativeNormalNegativeMorrow County HospitalComment on above:Performed By: #### UA ####[facility] ([address] [address] VIRLeukocyte esterase Test strip Ql (U)NegativeNormal NegativeMorrow County HospitalComment on above:Performed By: #### UA ####[facility] ([address] [place] [address] VIRNitrite Ql (U)NegativeNormalNegativeMorrow County HospitalComment on above:Performed By: #### UA ####[facility] ([address] [address] VIRPH,URINE7.7Ekfcbn6.0-8.5ProMedica Queen Of The Valley Medical CenterComment on above:Performed By: #### UA ####[facility] ([address] [address] VIRProtein Ql (U)Negative NormalNegativeMorrow County HospitalComment on above:Performed By: #### UA ####[facility] ([address] [address] VIRSpecific gravity (U) [Rel density]1.334Qyqlaq9.003-1.035ProBaylor Scott & White Medical Center – GrapevineComment on above:Performed By: #### UA ####[facility] ([address] [address] VIRTURBIDITYClearNormalClear [facility] HospitalComment on above:Performed By: #### UA ####[facility] ([address] [address] VIR UROBILINOGEN0.2 eu/dLNormal0.2 eu/dL, 1.0 eu/dLMorrow County HospitalComment on above:Performed By: #### UA ####[facility] ([address] [address] VIRURINE CULTUREon 29-80-2451Zzsjxiyi identified Cx Nom (U)CULTURE RESULTS <10,000 ORGANISMS/mL NORMAL URO GENITAL FLORANoalMorrow County Hospital Comment on above:Performed By: #### UC ####[facility] ([facility])[address], [place] [address] VIRBEDSIDE GLUCOSEon 12-16-2024 Glucose [Mass/Vol]152 mg/bSIqxc74-29OduCmdmraBaylor Scott & White Medical Center – GrapevineComment on above: Performed By: #### BEDG ####[facility] ([address], [id number] VIRGlucose [Mass/Vol]167 mg/uRUhvm80-98XbpEhxxpvMorrow County HospitalComment on above:Performed By: #### BEDG ####[facility] ([address], [id number] VIRGlucose [Mass/Vol] 114 mg/wCSwhj63-11HjlUswklpMorrow County HospitalComment on above:Performed By: #### BEDG ####[facility] ([address] [place] [address] VIRGlucose [Mass/Vol]134 mg/bJZdoq10-02KxfQtpeapMorrow County HospitalComment on above:Performed By: #### BEDG ####[facility] ([address], [id number] VIRCBC WITH AUTO DIFFERENTIALon [id number] ABSOLUTE COUNT (10*3/UL) BY AUTOMATED COUNT0.1 10*3/uLNormal 0.0-0.2ProMedica Queen Of The Valley Medical CenterComment on above:Performed By: #### CBCA ####[facility] ([address], [id number] VIRBASOPHILS RELATIVE PERCENT BY AUTOMATED COUNT1.5 %NormalProBaylor Scott & White Medical Center – GrapevineComment on above:Performed By: #### CBCA ####[facility] ([address], [id number] VIRCELLAVISION DIFFERENTIAL TYPEAUTOMATED DIFFERENTIALNormalProBaylor Scott & White Medical Center – GrapevineComment on above: Performed By: #### CBCA ####[facility] ([address], [id number] VIREosinophils (Bld) [#/Vol]0.5 10*3/uLHigh0.0-0.4 Mor[facility] County HospitalComment on above:Performed By: #### CBCA ####[facility] ([address], [id number] VIR EOSINOPHILS RELATIVE PERCENT BY AUTOMATED COUNT5.9 %NormalMorrow County HospitalComment on above:Performed By: #### CBCA ####[facility] ([address], [id number] VIRErythrocyte distribution width (RBC) [Ratio]18.8 %High11.5-15Morrow County HospitalComment on above: Performed By: #### CBCA ####[facility] ([address], [id number] VIRHematocrit (Bld) [Volume fraction]23.7 %Zbw61-48 [facility] County HospitalComment on above:Performed By: #### CBCA ####[facility] ([address], [id number] VIRHemoglobin (Bld) [Mass/Vol]7.6 g/dLLow11.7-15.5PCincinnati VA Medical CenterComment on above: Performed By: #### CBCA ####[facility] ([address], [id number] VIRLYMPHOCYTES ABSOLUTE COUNT (10*3/UL) BY AUTOMATED COUNT1.1 10*3/uLNormal1.0-3.5PCincinnati VA Medical CenterComment on above: Performed By: #### CBCA ####[facility] ([address], [id number] VIRLYMPHOCYTES RELATIVE PERCENT BY AUTOMATED COUNT11.8 %NormalMorrow County HospitalComment on above:Performed By: #### CBCA ####[facility])[address], [id number] VIRMCH (RBC) [Entitic mass]25.1 mbGfr88-79VshTtlftcMorrow County HospitalComment on above:Performed By: #### CBCA ####[facility] ([address], [id number] VIRMCHC (RBC) [Mass/Vol]32.2 g/eREwmdqo79-94 [facility] HospitalComment on above:Performed By: #### CBCA ####[facility] ([address], [place] VIRMCV (RBC) [Entitic vol]78 rPNcb56-582IirWbtmzfBaylor Scott & White Medical Center – GrapevineComment on above:Performed By: #### CBCA ####[facility] ([address], [id number] VIRMONOCYTES ABSOLUTE COUNT (10*3/UL) BY AUTOMATED COUNT0.9 10*3/uLNormal0.0-0.9M[facility] County HospitalComment on above:Performed By: #### CBCA ####[facility] ([address], [id number] VIRMONOCYTES RELATIVE PERCENT BY AUTOMATED COUNT9.8 %Normal Mor[facility] County HospitalComment on above:Performed By: #### CBCA ####[facility] ([address], [id number] VIR NEUTROPHILS ABSOLUTE COUNT BY AUTOMATED COUNT6.4 10*3/uLNormal1.5-6.6Morrow County HospitalComment on above:Performed By: #### CBCA ####[facility] ([address], [id number] VIRNEUTROPHILS RELATIVE PERCENT BY AUTOMATED COUNT71.0 %NormalProBaylor Scott & White Medical Center – GrapevineComment on above:Performed By: #### CBCA ####[facility] ([facility])[address], [id number] VIRPlatelet mean volume (Bld) [Entitic vol]7.2 fLNormal7-12PCincinnati VA Medical CenterComment on above:Performed By: #### CBCA ####[facility] ([place] [address], [id number] VIRPlatelets (Bld) [#/Vol]414 10*3/mQBpkgjc361-476VemHhybgn Fremont HospitalComment on above:Performed By: #### CBCA ####[facility] ([place] [address], [id number] VIRRBC COUNT3.03 X10E12/LLow3.8-5.2PCincinnati VA Medical CenterComment on above:Performed By: #### CBCA ####[facility] ([place] [address] [place] [address] VIRWBC (Bld) [#/Vol]9.0 10*3/uLNormal4-11ProBaylor Scott & White Medical Center – GrapevineComment on above:Performed By: #### CBCA ####[facility] ([facility])[address] [place], [place] [address]VE.[place], [id number] VIRCOMPREHENSIVE METABOLIC PANELon 66-81-7753Aqwhadu [Mass/Vol]2.8 g/dLLow3.2-5.3PCincinnati VA Medical CenterComment on above:Performed By: #### CMP ####[facility] ([facility] [place] [address] VIRALP [Catalytic activity/Vol]57 U/LNormal 39-130ProBaylor Scott & White Medical Center – GrapevineComment on above:Performed By: #### CMP ####[facility] ([place] [address] [place] [address] VIRALT [Catalytic activity/Vol]17 U/LNormal<=31PCincinnati [facility] Center Comment on above:Performed By: #### CMP ####[facility] ([address] [place] [address] VIRAnion gap [Moles/Vol]5 mmol/LNormal 5-15M[facility] County HospitalComment on above:Performed By: #### CMP ####[facility] ([address], [place] [address] VIRAST [Catalytic activity/Vol]24 U/LNormal<=41[facility] Comment on above:Performed By: #### CMP ####[facility] ([address] [place] [address] VIRBilirubin [Mass/Vol]0.5 mg/dLNormal 0.3-1.2PCincinnati VA Medical CenterComment on above:Performed By: #### CMP ####[facility] ([address], [place] [address] VIRCalcium [Mass/Vol]7.7 mg/dLLow8.5-10.5PCincinnati VA Medical CenterComment on above:Performed By: #### CMP ####[facility] ([address] [place] [address] VIRChloride [Moles/Vol]105 mmol/LXwlkfl37-466 [facility] HospitalComment on above:Performed By: #### CMP ####[facility] ([address] [place] [address] VIRCO2 [Moles/Vol]27 mmol/XAofzlo68-53WxxEsvaauCincinnati VA Medical CenterComment on above: Performed By: #### CMP ####[facility] ([address] [place] [address] VIRCreatinine [Mass/Vol]0.66 mg/dLNormal0.40-1.00 [facility] HospitalComment on above:Result Comment: METHOD TRACEABLE TO IDMS STANDARDPerformed By: #### CMP ####[facility] ([address] [place] [address] VIREGFR (CKD-EPI) NON-RACE DEPENDENT >^90Normal>=60ProBaylor Scott & White Medical Center – GrapevineComment on above:Result Comment: eGFR not reported due to non-numeric value for Creatinine.Reported eGFR is based on theCKD-EPI 2020 equation that doesnot use a race coefficient.Performed By: #### CMP ####[facility] ([address] [place] [address] VIRGlucose [Mass/Vol]97 mg/wUPbozcf30-93ZunKsebriBaylor Scott & White Medical Center – GrapevineComment on above:Performed By: #### CMP ####[facility] ([address] [place] [address] VIRPotassium [Moles/Vol]3.5 mmol/LNormal 3.5-5.0ProBaylor Scott & White Medical Center – GrapevineComment on above:Performed By: #### CMP ####[facility] ([address], [place] [address] VIRProtein [Mass/Vol]5.3 g/dLLow6.0-8.0M[facility] County HospitalComment on above:Performed By: #### CMP ####[facility] ([address] [place] [address] VIRSodium [Moles/Vol]137 mmol/WLooled896-880 ProMMarina Del Rey HospitalComment on above:Performed By: #### CMP ####[facility] ([address] [place] [address] VIRUrea nitrogen [Mass/Vol]8 mg/dLNormal5-27ProBaylor Scott & White Medical Center – GrapevineComment on above: Performed By: #### CMP ####[facility] ([address] [place] [address] VIRHEMOGLOBIN AND HEMATOCRIT, BLOODon 12-16-2024 Hematocrit (Bld) [Volume fraction]24.3 %Ujy87-35LbcXmtafhMorrow County Hospital Comment on above:Performed By: #### HH ####[facility] ([address] [place] [address] VIRHemoglobin (Bld) [Mass/Vol]7.9 g/dL Low11.7-15.5ProMedArrowhead Regional Medical CenterComment on above:Performed By: #### HH ####[facility] ([facility])[address] [place] [address].[place], [place] [address] VIRIONIZED CALCIUMon 72-95-3154IMJYQMX CALCIUM - ICAN4.7 mg/dLNormal4.5-5.3 [facility] HospitalComment on above:Performed By: #### ICA ####[facility] ([address] [place] [address] VIRMAGNESIUM on 13-92-0601Ddzmxqswe [Mass/Vol]2.1 mg/dLNormal1.8-2.6M[facility] County HospitalComment on above:Performed By: #### MG ####[facility] ([address] [place] [address] VIRPOTASSIUMon 12-16-2024 Potassium [Moles/Vol]3.8 mmol/LNormal3.5-5.0M[facility] County HospitalComment on above:Performed By: #### K ####[facility] ([address] [place] [address] VIRBEDSIDE GLUCOSEon 08-75-7459Tlsirns [Mass/Vol]185 mg/qSAhha06-37TdyDnpzbpMorrow County HospitalComment on above:Performed By: #### BEDG ####[facility] ([address], [place] VIRGlucose [Mass/Vol]127 mg/zEVxua41-53UerHzoenpMorrow County HospitalComment on above:Performed By: #### BEDG ####[facility] ([address], [id number] VIRGlucose [Mass/Vol]173 mg/dL Gsnx89-48XjiVzalcl[address] [place], [place] [address]Comment on above:Performed By: #### BEDG ####[facility] ([address], [id number] VIRGlucose [Mass/Vol]129 mg/cNWtgg97-80AftOegceo27 Miller StreetComment on above:Performed By: #### BEDG ####[facility] ([address], [id number] VIRCBC WITH AUTO DIFFERENTIALon 12-15-2024 BASOPHILS ABSOLUTE COUNT (10*3/UL) BY AUTOMATED COUNT0.1 10*3/uLNormal0.0-0.2 [facility] HospitalComascension [facility] on above:Performed By: #### CBCA ####[facility] ([address], [id number] VIRBASOPHILS RELATIVE PERCENT BY AUTOMATED COUNT1.0 %Holzer Health SystemComascension standish hospital on above:Performed By: #### CBCA ####[facility] ([address], [id number] VIRCELLAVISION DIFFERENTIAL TYPE AUTOMATED DIFFERENTIALNormalMorrow County HospitalComascension standish hospital on above:Performed By: #### CBCA ####[facility] ([address], [id number] VIREosinophils (Bld) [#/Vol]0.4 10*3/uLNormal0.0-0.4 [facility] HospitalComascension standish hospital on above:Performed By: #### CBCA ####[facility] ([address], [id number] VIR EOSINOPHILS RELATIVE PERCENT BY AUTOMATED COUNT4.6 %NormalMorrow County HospitalComment on above:Performed By: #### CBCA ####[facility] ([address], [id number] VIRErythrocyte distribution width (RBC) [Ratio]18.5 %High11.5-15ProBaylor Scott & White Medical Center – GrapevineComment on above: Performed By: #### CBCA ####[facility] ([address], [id number] VIRHematocrit (Bld) [Volume fraction]25.0 %Rqp64-00 [facility] HospitalComment on above:Performed By: #### CBCA ####[facility] ([address], [id number] VIRHemoglobin (Bld) [Mass/Vol]7.8 g/dLLow11.7-15.5PCincinnati VA Medical CenterComment on above: Performed By: #### CBCA ####[facility] ([address], [id number] VIRLYMPHOCYTES ABSOLUTE COUNT (10*3/UL) BY AUTOMATED COUNT0.9 10*3/uLLow1.0-3.5PCincinnati VA Medical CenterComment on above:Performed By: #### CBCA ####[facility] ([address], [id number] VIRLYMPHOCYTES RELATIVE PERCENT BY AUTOMATED COUNT10.3 % NormalMorrow County HospitalComment on above:Performed By: #### CBCA ####[facility] ([address], [id number] VIRMCH (RBC) [Entitic mass]25.0 keZfb08-23LmrGiftltBaylor Scott & White Medical Center – GrapevineComment on above:Performed By: #### CBCA ####[facility] ([address], [id number] VIRMCHC (RBC) [Mass/Vol]31.3 g/nYRkh81-94 [facility] HospitalComment on above:Performed By: #### CBCA ####[facility] ([address], [id number] VIRMCV (RBC) [Entitic vol]80 xFErsbnd67-576ChnXewgwg Fremont HospitalComment on above: Performed By: #### CBCA ####[facility] ([address], [id number] VIRMONOCYTES ABSOLUTE COUNT (10*3/UL) BY AUTOMATED COUNT1.0 10*3/uLHigh0.0-0.9M[facility] County HospitalComment on above:Performed By: #### CBCA ####[facility] ([address], [id number] VIRMONOCYTES RELATIVE PERCENT BY AUTOMATED COUNT11.6 % NormalMorrow County HospitalComment on above:Performed By: #### CBCA ####[facility] ([address], [id number] VIRNEUTROPHILS ABSOLUTE COUNT BY AUTOMATED COUNT6.4 10*3/uLNormal1.5-6.6 [facility] HospitalComascension standish hospital on above:Performed By: #### CBCA ####[facility] ([address], [id number] VIR NEUTROPHILS RELATIVE PERCENT BY AUTOMATED COUNT72.5 %NormalMorrow County HospitalComment on above:Performed By: #### CBCA ####[facility] ([address], [id number] VIRPlatelet mean volume (Bld) [Entitic vol]6.9 fLLow7-12ProMedica Queen Of The Valley Medical CenterComment on above:Performed By: #### CBCA ####[facility] ([address], [id number] VIRPlatelets (Bld) [#/Vol]398 10*3/cVAcvmwc119-134LphXawahs Fremont HospitalComment on above:Performed By: #### CBCA ####[facility] ([facility])[address] [place], [place] [address], [place] VIRRBC COUNT3.14 X10E12/LLow3.8-5.2PCincinnati VA Medical CenterComment on above:Performed By: #### CBCA ####[facility] ([facility])[address] [place], [place] [address] [place] [address] VIRWBC (Bld) [#/Vol]8.8 10*3/uLNormal4-11ProBaylor Scott & White Medical Center – GrapevineComment on above:Performed By: #### CBCA ####[facility] ([address], [place] VIRCOMPREHENSIVE METABOLIC PANELon 44-56-3796Zbxwtnx [Mass/Vol]2.6 g/dLLow3.2-5.3PCincinnati VA Medical CenterComment on above:Performed By: #### CMP ####[facility] ([facility])[address] [place], [place] [address] [place] [address] VIRALP [Catalytic activity/Vol]53 U/LNormal 39-130ProBaylor Scott & White Medical Center – GrapevineComment on above:Performed By: #### CMP ####[facility] ([facility])[address] [place], [place] [address].[place], [place] [address] VIRALT [Catalytic activity/Vol]16 U/LNormal<=31PC[facility] Comment on above:Performed By: #### CMP ####[facility] ([facility])[address] [place], [place] [address] [place] [address] VIRAnion gap [Moles/Vol]3 mmol/LLow 5-15ProBaylor Scott & White Medical Center – GrapevineComment on above:Performed By: #### CMP ####[facility] ([address], [place] [address] VIRAST [Catalytic activity/Vol]25 U/LNormal<=41[facility] Comment on above:Performed By: #### CMP ####[facility] ([address] [place] [address] VIRBilirubin [Mass/Vol]0.9 mg/dLNormal 0.3-1.2PCincinnati VA Medical CenterComment on above:Performed By: #### CMP ####[facility] ([address] [address] VIRCalcium [Mass/Vol]7.8 mg/dLLow8.5-10.5PCincinnati VA Medical CenterComment on above:Performed By: #### CMP ####[address] [address] VIRChloride [Moles/Vol]112 mmol/CSxyb19-353 [facility] HospitalComment on above:Performed By: #### CMP ####[facility] ([address] [address] VIRCO2 [Moles/Vol]23 mmol/ORenybo44-69YlrNyzkizCincinnati VA Medical CenterComment on above: Performed By: #### CMP ####[facility] ([address] [place] [address] VIRCreatinine [Mass/Vol]0.75 mg/dLNormal0.40-1.00 [facility] HospitalComment on above:Result Comment: METHOD TRACEABLE TO IDMS STANDARDPerformed By: #### CMP ####[facility] ([address] [address] VIRGFR/1.73 sq M.predicted among non- blacks MDRD (S/P/Bld) [Vol rate/Area]88 mL/min/{1.73_m2}Normal>=60ProBaylor Scott & White Medical Center – GrapevineComment on above:Result Comment: Reported eGFR is based on theCKD-EPI 2020 equation that doesnot use a race coefficient.Performed By: #### CMP ####[facility] ([address] [place] [address] VIRGlucose [Mass/Vol]124 mg/yDDtvc36-74AmlOvplsoBaylor Scott & White Medical Center – GrapevineComment on above:Performed By: #### CMP ####[facility] ([address] [place] [address] VIRPotassium [Moles/Vol]4.5 mmol/LNormal 3.5-5.0ProBaylor Scott & White Medical Center – GrapevineComment on above:Performed By: #### CMP ####[address], [place] [address] VIRProtein [Mass/Vol]5.0 g/dLLow6.0-8.0ProBaylor Scott & White Medical Center – GrapevineComment on above:Performed By: #### CMP ####[facility] ([address] [place] [address] VIRSodium [Moles/Vol]138 mmol/JRjmzyd955-385 [facility] HospitalComment on above:Performed By: #### CMP ####[facility] ([address] [place] [address] VIRUrea nitrogen [Mass/Vol]11 mg/dLNormal5-27ProBaylor Scott & White Medical Center – GrapevineComment on above: Performed By: #### CMP ####[facility] ([address] [place] [address] VIRHEMOGLOBIN AND HEMATOCRIT, BLOODon 12-15-2024 Hematocrit (Bld) [Volume fraction]25.0 %Avg42-45LcpYlbkckMorrow County Hospital Comment on above:Performed By: #### HH ####[facility] ([address] [place] [address] VIRHemoglobin (Bld) [Mass/Vol]7.9 g/dL Low11.7-15.5ProMedica Queen Of The Valley Medical CenterComment on above:Performed By: #### HH ####[facility] ([address] [address] VIRIONIZED CALCIUMon 10-66-1871OTJMJBB CALCIUM - ICAN4.8 mg/dLNormal4.5-5.3 [facility] HospitalComment on above:Performed By: #### ICA ####[facility] ([address] [address] VIRMAGNESIUM on 15-69-8250Mxgmoxqqm [Mass/Vol]2.4 mg/dLNormal1.8-2.6M[facility] County HospitalComment on above:Performed By: #### MG ####[facility] ([address] [address] VIRMagnesium [Mass/Vol]1.9 mg/dLNormal1.8-2.6ProBaylor Scott & White Medical Center – GrapevineComment on above:Performed By: #### MG ####[facility] ([address] [address] VIRBEDSIDE GLUCOSEon 56-51-9590Vnoccyh [Mass/Vol]146 mg/eOTvpo32-81 [facility] HospitalComment on above:Performed By: #### BEDG ####[facility] ([address] VIRGlucose [Mass/Vol]153 mg/uKEuao55-27VqpBvlcxgMorrow County HospitalComment on above:Performed By: #### BEDG ####[facility] ([address] VIRGlucose [Mass/Vol]146 mg/nCTygp44-51HqhZogahbBaylor Scott & White Medical Center – GrapevineComment on above:Performed By: #### BEDG ####[facility] ([address], [id number] VIRCBC WITH AUTO DIFFERENTIAL on 67-97-3116JVJESXHWU ABSOLUTE COUNT (10*3/UL) BY AUTOMATED COUNT0.1 10*3/uL Normal0.0-0.2ProMedica Queen Of The Valley Medical CenterComment on above:Performed By: #### CBCA ####[facility] ([address], [id number] VIRBASOPHILS RELATIVE PERCENT BY AUTOMATED COUNT0.9 %NormalMorrow County HospitalComment on above:Performed By: #### CBCA ####[address], [id number] VIRCELLAVISION DIFFERENTIAL TYPEAUTOMATED DIFFERENTIALNormalMorrow County HospitalComment on above: Performed By: #### CBCA ####[facility] ([address], [id number] VIREosinophils (Bld) [#/Vol]0.2 10*3/uLNormal0.0-0.4 [facility] HospitalComment on above:Performed By: #### CBCA ####[facility] ([address], [id number] VIR EOSINOPHILS RELATIVE PERCENT BY AUTOMATED COUNT3.2 %NormalMorrow County HospitalComment on above:Performed By: #### CBCA ####[facility] ([address], [id number] VIRErythrocyte distribution width (RBC) [Ratio]19.8 %High11.5-15M[facility] County HospitalComment on above: Performed By: #### CBCA ####[facility] ([address], [id number] VIRHematocrit (Bld) [Volume fraction]23.1 %Xsd65-75 [facility] HospitalComment on above:Performed By: #### CBCA ####[facility] ([address], [id number] VIRHemoglobin (Bld) [Mass/Vol]7.4 g/dLLow11.7-15.5PCincinnati VA Medical CenterComment on above: Performed By: #### CBCA ####[facility] ([address], [id number] VIRLYMPHOCYTES ABSOLUTE COUNT (10*3/UL) BY AUTOMATED COUNT1.0 10*3/uLNormal1.0-3.5PCincinnati VA Medical CenterComascension standish hospital on above: Performed By: #### CBCA ####[facility] ([address], [id number] VIRLYMPHOCYTES RELATIVE PERCENT BY AUTOMATED COUNT12.8 %NormalProBaylor Scott & White Medical Center – GrapevineComment on above:Performed By: #### CBCA ####[facility] ([address], [id number] VIRMCH (RBC) [Entitic mass]24.8 itIcl56-54KyfZxcqdiMorrow County HospitalComment on above:Performed By: #### CBCA ####[facility] ([address] [place], [id number] VIRMCHC (RBC) [Mass/Vol]32.2 g/fCRimakn99-91 [facility] HospitalComascension standish hospital on above:Performed By: #### CBCA ####[facility] ([address], [id number] VIRMCV (RBC) [Entitic vol]77 fAVyd17-908OfiEgxpipMorrow County HospitalComment on above:Performed By: #### CBCA ####[facility] ([address] [id number] VIRMONOCYTES ABSOLUTE COUNT (10*3/UL) BY AUTOMATED COUNT1.0 10*3/uLHigh0.0-0.9[facility] HospitalComment on above:Performed By: #### CBCA ####[facility] ([facility])[address] [place] [address] [place] [address] VIRMONOCYTES RELATIVE PERCENT BY AUTOMATED COUNT12.8 %NormalMorrow County HospitalComment on above:Performed By: #### CBCA ####[facility] ([facility])[address] [place] [address] [address]VE.[place], [id number] VIRNEUTROPHILS ABSOLUTE COUNT BY AUTOMATED COUNT5.3 10*3/uLNormal1.5-6.6[facility] HospitalComment on above:Performed By: #### CBCA ####[facility] ([address], [id number] VIRNEUTROPHILS RELATIVE PERCENT BY AUTOMATED COUNT70.3 %NormalMorrow County HospitalComment on above:Performed By: #### CBCA ####[facility] ([address], [id number] VIRPlatelet mean volume (Bld) [Entitic vol]6.8 fLLow7-12PTulane University Medical Centerica Queen Of The Valley Medical CenterComment on above:Performed By: #### CBCA ####[facility] ([address], [id number] VIRPlatelets (Bld) [#/Vol]446 10*3/nPRkzfhh623-224HfeWmblsw [facility] Comment on above:Performed By: #### CBCA ####[facility] ([address], [id number] VIRRBC COUNT3.00 X10E12/LLow3.8-5.2 [facility] HospitalComment on above:Performed By: #### CBCA ####[facility] ([address], [id number] VIRWBC (Bld) [#/Vol]7.5 10*3/uLNormal4-11ProBaylor Scott & White Medical Center – GrapevineComment on above: Performed By: #### CBCA ####[facility] ([address], [id number] VIRCOMPREHENSIVE METABOLIC PANELon 78-88-1178Gtvwqag [Mass/Vol]2.9 g/dLLow3.2-5.3PAdventHealth Littleton HospitalComment on above:Performed By: #### CMP ####[facility] ([place] [address] [place] [address] VIRALP [Catalytic activity/Vol]58 U/ZPjggnu65-884RrgOnpfxlBaylor Scott & White Medical Center – GrapevineComment on above:Performed By: #### CMP ####[facility] ([place] [address] [place] [address] VIRALT [Catalytic activity/Vol]12 U/LNormal<=31PCincinnati VA Medical CenterComment on above: Performed By: #### CMP ####[facility] ([address] [place] [address] VIRAnion gap [Moles/Vol]11 mmol/LNormal5-15ProBaylor Scott & White Medical Center – GrapevineComment on above:Performed By: #### CMP ####[facility] ([place] [address] [place] [address] VIRAST [Catalytic activity/Vol]18 U/LNormal<=41ProBaylor Scott & White [facility] – GrapevineComment on above: Performed By: #### CMP ####[facility] ([place] [address] [place] [address] VIRBilirubin [Mass/Vol]0.9 mg/dLNormal0.3-1.2 [facility] HospitalComment on above:Performed By: #### CMP ####[facility] ([place] [address] [place] [address] VIRCalcium [Mass/Vol]8.2 mg/dLLow8.5-10.5PCincinnati VA Medical CenterComment on above: Performed By: #### CMP ####[facility] ([facility])[address] [place], [place] [address]E.[place] [address] VIRChloride [Moles/Vol]101 mmol/QIdmrlr06-920 ProMMarina Del Rey HospitalComment on above:Performed By: #### CMP ####[facility] ([address] [place] [address] VIRCO2 [Moles/Vol]24 mmol/YSvmiyh19-77RuoQryxdyCincinnati VA Medical CenterComment on above: Performed By: #### CMP ####[facility] ([address] [place] [address] VIRCreatinine [Mass/Vol]0.94 mg/dLNormal0.40-1.00 [facility] HospitalComment on above:Result Comment: METHOD TRACEABLE TO IDMS STANDARDPerformed By: #### CMP ####[facility] ([address] [address] VIRGFR/1.73 sq M.predicted among non- blacks MDRD (S/P/Bld) [Vol rate/Area]67 mL/min/{1.73_m2}Normal>=60ProBaylor Scott & White Medical Center – GrapevineComment on above:Result Comment: eGFR not reported due to non- numeric value for Creatinine.Reported eGFR is based ontheCKD-EPI 2021 equation that doesnot use a race coefficient.Performed By: #### CMP ####[facility] ([address] [place] [address] VIRGlucose [Mass/Vol]126 mg/yWFnde86-80ZioJnxgawBaylor Scott & White Medical Center – GrapevineComment on above:Performed By: #### CMP ####[facility] ([address] [place] [address] VIRPotassium [Moles/Vol]4.5 mmol/LNormal3.5-5.0ProBaylor Scott & White Medical Center – GrapevineComment on above:Performed By: #### CMP ####[facility] ([address] [place] [address] VIRProtein [Mass/Vol]5.8 g/dLLow6.0-8.0ProBaylor Scott & White Medical Center – GrapevineComment on above:Performed By: #### CMP ####[facility] ([address] [place] [address] VIRSodium [Moles/Vol]136 mmol/NMlufis382-715LwiGnlhdw [facility]ont HospitalComment on above:Performed By: #### CMP ####[facility] ([address] [place] [address] VIRUrea nitrogen [Mass/Vol]14 mg/dLNormal5-27ProBaylor Scott & White Medical Center – GrapevineComment on above:Performed By: #### CMP ####[facility] ([address] [place] [address] VIRHEMOGLOBIN AND HEMATOCRIT, BLOODon 84-85-8381Qganhytktb (Bld) [Volume fraction]20.1 %Csa55-12RmbUkwwktMorrow County HospitalComment on above:Performed By: #### HH ####[facility] ([address] [place] [address] VIRHemoglobin (Bld) [Mass/Vol]6.3 g/dL Critically low11.7-15.5ProMedica Queen Of The Valley Medical CenterComment on above:Performed By: #### HH ####[facility] ([address] [place] [address] VIRHematocrit (Bld) [Volume fraction]21.3 %Seo13-96FzqMtmwum [facility] HospitalComment on above:Performed By: #### HH ####[facility] ([address] [place] [address] VIRHemoglobin (Bld) [Mass/Vol]6.8 g/dLCritically low11.7-15.5PCincinnati VA Medical CenterComment on above:Performed By: #### HH ####[facility] ([address] [place] [address] VIRMAGNESIUMon 98-53-6237Gfbgpdisc [Mass/Vol] 2.0 mg/dLNormal1.8-2.6ProBaylor Scott & White Medical Center – GrapevineComment on above:Performed By: #### MG ####[facility] ([address] [address] VIRPOTASSIUMon 01-55-4595Wacfumcjn [Moles/Vol]3.5 mmol/LNormal3.5-5.0 [facility] HospitalComment on above:Performed By: #### K ####[facility] ([address] [address] VIRTYPE AND SCREENon 34-30-6293AZX_RJPBXEOuoyjrVmzZjzomk [place] HospitalComment on above: Performed By: #### TSC ####[facility] ([address] [address] VIRRH_INTEPPositiveNormalProBaylor Scott & White [facility] Center – [place] Comment on above:Performed By: #### TSC ####[facility] ([address] [address] VIRBEDSIDE GLUCOSEon 85-78-8276Zalwzcp [Mass/Vol]118 mg/uNOhlc38-56XuaDdkarnBaylor Scott & White Medical Center – GrapevineComment on above: Performed By: #### BEDG ####[address] VIRCBC WITH AUTO DIFFERENTIALon 42-95-1218PKCCUHZAQ ABSOLUTE COUNT (10*3/UL) BY AUTOMATED COUNT0.1 10*3/uLNormal0.0-0.2PAdventHealth Littleton HospitalComment on above:Performed By: #### CBCA ####[facility] ([address], [id number] VIRBASOPHILS RELATIVE PERCENT BY AUTOMATED COUNT0.9 %NormalMorrow County HospitalComment on above:Performed By: #### CBCA ####[facility] ([address], [id number] VIRCELLAVISION DIFFERENTIAL TYPEAUTOMATED DIFFERENTIALNormalProBaylor Scott & White Medical Center – GrapevineComment on above:Performed By: #### CBCA ####[facility] ([address] [place] [address] VIREosinophils (Bld) [#/Vol]0.1 10*3/uLNormal0.0-0.4M[facility] County HospitalComment on above:Performed By: #### CBCA ####[facility] ([address], [id number] VIREOSINOPHILS RELATIVE PERCENT BY AUTOMATED COUNT0.8 %NormalMorrow County HospitalComment on above: Performed By: #### CBCA ####[facility] ([address], [id number] VIRErythrocyte distribution width (RBC) [Ratio]19.9 % High11.5-15M[facility] County HospitalComment on above:Performed By: #### CBCA ####[facility] ([address], [id number] VIRHematocrit (Bld) [Volume fraction]24.3 %Dbq85-73JohBbsmviBaylor Scott & White Medical Center – Grapevine Comment on above:Performed By: #### CBCA ####[facility] ([address], [id number] VIRHemoglobin (Bld) [Mass/Vol]8.0 g/dL Low11.7-15.5ProMedica Edwards HospitalComment on above:Performed By: #### CBCA ####[facility] ([facility])[address] [place], [place] [address]E.[place], [id number] VIRLYMPHOCYTES ABSOLUTE COUNT (10*3/UL) BY AUTOMATED COUNT0.8 10*3/uLLow1.0-3.5 [facility] HospitalComment on above:Performed By: #### CBCA ####[facility] ([facility])[address] [place], [place] [address], [id number] VIR LYMPHOCYTES RELATIVE PERCENT BY AUTOMATED COUNT9.0 %NormalProBaylor Scott & White Medical Center – GrapevineComment on above:Performed By: #### CBCA ####[facility] ([facility])[address] [place], [place] [address]E.[place], [id number] VIRMCH (RBC) [Entitic mass] 25.3 ibZak76-67ZkoPycwexBaylor Scott & White Medical Center – GrapevineComment on above:Performed By: #### CBCA ####[facility] ([facility])[address] [place], [place] [address], [place] [address] VIRMCHC (RBC) [Mass/Vol]32.9 g/vTMsyweq86-19SmfXofcjdMorrow County Hospital Comment on above:Performed By: #### CBCA ####[facility] ([facility])[address] [place], [place] [address]E.[place], [id number] VIRMCV (RBC) [Entitic vol]77 fLLow 80-100ProBaylor Scott & White Medical Center – GrapevineComment on above:Performed By: #### CBCA ####[facility] ([facility])[address] [place], [place] [address]E.[place], [id number] VIRMONOCYTES ABSOLUTE COUNT (10*3/UL) BY AUTOMATED COUNT0.9 10*3/uLNormal0.0-0.9 [facility] HospitalComment on above:Performed By: #### CBCA ####[facility] ([facility])[address] [place] [address] AVE.[place], [id number] VIRMONOCYTES RELATIVE PERCENT BY AUTOMATED COUNT9.8 %NormalProBaylor Scott & White Medical Center – GrapevineComment on above:Performed By: #### CBCA ####[facility] ([facility])[address] [place] [address] [address]VE.[place], [id number] VIRNEUTROPHILS ABSOLUTE COUNT BY AUTOMATED COUNT7.3 10*3/uLHigh1.5-6.6M[facility] County HospitalComment on above: Performed By: #### CBCA ####[facility] ([facility])[address] [place] [address] AVE.[place], [id number] VIRNEUTROPHILS RELATIVE PERCENT BY AUTOMATED COUNT79.5 %NormalMorrow County HospitalComment on above:Performed By: #### CBCA ####[facility] ([address], [id number] VIRPlatelet mean volume (Bld) [Entitic vol]7.0 fLNormal7-12PCincinnati VA Medical CenterComment on above:Performed By: #### CBCA ####[facility] ([address], [id number] VIRPlatelets (Bld) [#/Vol]476 10*3/qBVkdv876-619LqkRgjvkeBaylor Scott & White Medical Center – GrapevineComment on above:Performed By: #### CBCA ####[facility] ([address] [place] [address] VIRRBC COUNT3.16 X10E12/LLow3.8-5.2PCincinnati VA Medical CenterComment on above:Performed By: #### CBCA ####[facility] ([address], [id number] VIRWBC (Bld) [#/Vol]9.2 10*3/uLNormal4-11 [facility] HospitalComment on above:Performed By: #### CBCA ####[facility] ([address], [place] VIR COMPREHENSIVE METABOLIC PANELon 39-96-8355Itesmzv [Mass/Vol]3.2 g/dLNormal 3.2-5.3PCincinnati VA Medical CenterComment on above:Performed By: #### CMP ####[facility] ([address] [place] [address] VIRALP [Catalytic activity/Vol]66 U/SEmxocw22-805IjjTuyfwvMorrow County Hospital Comment on above:Performed By: #### CMP ####[facility] ([place] [address] [place] [address] VIRALT [Catalytic activity/Vol]15 U/L Normal<=31PCincinnati VA Medical CenterComment on above:Performed By: #### CMP ####[facility] ([address] [address] VIRAnion gap [Moles/Vol]15 mmol/LNormal5-15[facility] Comment on above:Performed By: #### CMP ####[facility] ([address] [place] [address] VIRAST [Catalytic activity/Vol]24 U/L Normal<=41ProBaylor Scott & White Medical Center – GrapevineComment on above:Performed By: #### CMP ####[facility] ([place] [address] [address] VIRBilirubin [Mass/Vol]1.1 mg/dLNormal0.3-1.2PCincinnati VA [facility] Center Comment on above:Performed By: #### CMP ####[facility] ([place] [address] [place] [address] VIRCalcium [Mass/Vol]8.4 mg/dLLow 8.5-10.5PCincinnati VA Medical CenterComment on above:Performed By: #### CMP ####[facility] ([place] [address], [place] [address] VIRChloride [Moles/Vol]92 mmol/SFph31-944DqsIupqmxBaylor Scott & White Medical Center – GrapevineComment on above:Performed By: #### CMP ####[facility] ([address] [place] [address] VIRCO2 [Moles/Vol]25 mmol/QSzhsng98-43 ProMMarina Del Rey HospitalComment on above:Performed By: #### CMP ####[facility] ([address] [address] VIR Creatinine [Mass/Vol]0.97 mg/dLNormal0.40-1.00ProBaylor Scott & White Medical Center – GrapevineComment on above:Result Comment: METHOD TRACEABLE TO IDMS STANDARDPerformed By: #### CMP ####[facility] ([address] [address] VIRGFR/1.73 sq M.predicted among non-blacks MDRD (S/P/Bld) [Vol rate/Area] 65 mL/min/{1.73_m2}Normal>=60ProBaylor Scott & White Medical Center – GrapevineComment on above:Result Comment: Reported eGFR is based on theCKD-EPI 2020 equation that doesnot use a race coefficient.Performed By: #### CMP ####[facility] ([address] [place] [address] VIRGlucose [Mass/Vol]131 mg/dLHigh 65-99ProBaylor Scott & White Medical Center – GrapevineComment on above:Performed By: #### CMP ####[facility] ([address] [address] VIRPotassium [Moles/Vol]2.5 mmol/LCritically low3.5-5.0ProBaylor Scott & White Medical Center – GrapevineComment on above:Performed By: #### CMP ####[facility] ([address] [address] VIRProtein [Mass/Vol]6.3 g/dL Normal6.0-8.0M[facility] County HospitalComment on above:Performed By: #### CMP ####[facility] ([address], [place] [address] VIRSodium [Moles/Vol]132 mmol/SKdj781-504FzpEtzoxwBaylor Scott & White Medical Center – GrapevineComment on above:Performed By: #### CMP ####[facility] ([address] [place] [address] VIRUrea nitrogen [Mass/Vol]18 mg/dLNormal5-27 ProMMarina Del Rey HospitalComment on above:Performed By: #### CMP ####[facility] ([address] [address] VIRCT ABDOMEN AND PELVIS W CONTon 68-20-0013IN ABDOMEN AND PELVIS W CONTNormal [facility] County HospitalLIPASEon 15-82-6000Cvumpb [Catalytic activity/Vol]37 U/BHituno65-38YvfFwwmppBaylor Scott & White Medical Center – GrapevineComment on above:Performed By: #### LIPA ####[facility] ([address] VIRMAGNESIUMon 08-89-6425Kxjfkudkt [Mass/Vol]2.2 mg/dLNormal1.8-2.6M[facility] County HospitalComment on above:Performed By: #### MG ####[facility] ([address] [address] VIRPOTASSIUMon 56-07-8519Ptvyklqba [Moles/Vol]3.0 mmol/LLow3.5-5.0[facility] Comment on above:Performed By: #### K ####[facility] ([address] [address] VIRTROP I, HIGH SENSITIVITY 1 HOURon 58-10-6758LACVHWRC I, HIGH OOFRPSUQJPE35 ng/LNormal<16[facility] Comment on above:Performed By: #### [email or web address] ####[facility] ([address] [address] VIRTROPONIN I, HIGH SENSITIVITY 0 HOURon 24-69-7633JPEZJUXU I, HIGH TAKXYMRNNCQ00 ng/LNormal<16 [facility] HospitalComment on above:Performed By: #### TNIHS0 ####[facility] ([address] [address] VIRBEDSIDE GLUCOSEon 93-42-2292Chkpcsv [Mass/Vol]123 mg/kTIhms62-93 [facility] HospitalComment on above:Performed By: #### BEDG ####[facility] ([address] [id number] VIRCBC WITH AUTO DIFFERENTIALon 91-81-3016IPYTUYOLC ABSOLUTE COUNT (10*3/UL) BY AUTOMATED COUNT0.1 10*3/uLNormal0.0-0.2PCincinnati VA Medical CenterComment on above: Performed By: #### CBCA ####[facility] ([address] [id number] VIRBASOPHILS RELATIVE PERCENT BY AUTOMATED COUNT0.7 % NormalProBaylor Scott & White Medical Center – GrapevineComment on above:Performed By: #### CBCA ####[facility] ([address] [id number] VIRCELLAVISION DIFFERENTIAL TYPEAUTOMATED DIFFERENTIALNormalProBaylor Scott & White [facility] Center – GrapevineComment on above:Performed By: #### CBCA ####[facility] ([address] [id number] VIREosinophils (Bld) [#/Vol] 0.2 10*3/uLNormal0.0-0.4M[facility] HospitalComment on above:Performed By: #### CBCA ####[facility])[address], [id number] VIREOSINOPHILS RELATIVE PERCENT BY AUTOMATED COUNT2.3 % NormalMorrow County HospitalComment on above:Performed By: #### CBCA ####[facility] ([address], [id number] VIRErythrocyte distribution width (RBC) [Ratio]19.9 %High11.5-15ProBaylor Scott & White Medical Center – GrapevineComment on above:Performed By: #### CBCA ####[facility] ([address], [id number] VIRHematocrit (Bld) [Volume fraction]24.3 %Ozu92-55EmpAarjztBaylor Scott & White Medical Center – GrapevineComment on above: Performed By: #### CBCA ####[facility] ([address], [id number] VIRHemoglobin (Bld) [Mass/Vol]7.8 g/dLLow11.7-15.5 [facility] HospitalComment on above:Performed By: #### CBCA ####[facility] ([address], [id number] VIR LYMPHOCYTES ABSOLUTE COUNT (10*3/UL) BY AUTOMATED COUNT0.9 10*3/uLLow1.0-3.5 [facility] HospitalComment on above:Performed By: #### CBCA ####[facility] ([address], [id number] VIR LYMPHOCYTES RELATIVE PERCENT BY AUTOMATED COUNT8.2 %NormalProBaylor Scott & White Medical Center – GrapevineComment on above:Performed By: #### CBCA ####[facility] ([address], [id number] VIRMCH (RBC) [Entitic mass] 25.2 fzArj54-17HijBsggcs [facility] HospitalComment on above:Performed By: #### CBCA ####[facility] ([facility])[address] [place], [place] [address]E.[place], [place] [address] VIRMCHC (RBC) [Mass/Vol]32.0 g/yVHvqopo45-77HraSmygkmMorrow County Hospital Comment on above:Performed By: #### CBCA ####[facility] ([address], [id number] VIRMCV (RBC) [Entitic vol]79 fLLow 80-100ProBaylor Scott & White Medical Center – GrapevineComment on above:Performed By: #### CBCA ####[facility] ([address], [id number] VIRMONOCYTES ABSOLUTE COUNT (10*3/UL) BY AUTOMATED COUNT0.8 10*3/uLNormal0.0-0.9 [facility] HospitalComment on above:Performed By: #### CBCA ####[facility] ([address], [id number] VIRMONOCYTES RELATIVE PERCENT BY AUTOMATED COUNT7.2 %NormalMorrow County HospitalComment on above:Performed By: #### CBCA ####[facility] ([address], [id number] VIRNEUTROPHILS ABSOLUTE COUNT BY AUTOMATED COUNT8.8 10*3/uLHigh1.5-6.6M[facility] HospitalComment on above: Performed By: #### CBCA ####[facility] ([address], [id number] VIRNEUTROPHILS RELATIVE PERCENT BY AUTOMATED COUNT81.6 %NormalMorrow County HospitalComment on above:Performed By: #### CBCA ####[facility] ([address], [id number] VIRPlatelet mean volume (Bld) [Entitic vol]7.1 fLNormal7-12ProMedica Queen Of The Valley Medical CenterComment on above:Performed By: #### CBCA ####[facility] ([facility] [address], [id number] VIRPlatelets (Bld) [#/Vol]329 10*3/wZYatuvv073-548HndFcgenq [facility] HospitalComment on above:Performed By: #### CBCA ####[facility] ([facility] [address], [id number] VIRRBC COUNT3.08 X10E12/LLow3.8-5.2PCincinnati VA Medical CenterComment on above:Performed By: #### CBCA ####[facility] ([facility])[address] [place], [place] [address]VE.[place], [id number] VIRWBC (Bld) [#/Vol]10.8 10*3/uLNormal4-11ProBaylor Scott & White Medical Center – GrapevineComment on above:Performed By: #### CBCA ####[facility] ([facility])[address] [place], [place] [address] [address] VIRCOMPREHENSIVE METABOLIC PANELon 43-90-9539Xggkckp [Mass/Vol]3.0 g/dLLow 3.2-5.3PCincinnati VA Medical CenterComment on above:Performed By: #### CMP ####[facility] ([facility])[address] [place], [place] [address], [place] [address] VIRALP [Catalytic activity/Vol]68 U/FZpofpc33-089GosHecfahBaylor Scott & White Medical Center – [place] Comment on above:Performed By: #### CMP ####[facility] ([facility])[address] [place] [address] [place] [address] VIRALT [Catalytic activity/Vol]15 U/L Normal<=31PCincinnati VA Medical CenterComment on above:Performed By: #### CMP ####[facility] ([facility] [address], [place] [address] VIRAnion gap [Moles/Vol]11 mmol/LNormal5-15ProCrossbridge [facility]al [facility] Comment on above:Performed By: #### CMP ####[facility] ([address] [place] [address] VIRAST [Catalytic activity/Vol]17 U/L Normal<=41ProBaylor Scott & White Medical Center – GrapevineComment on above:Performed By: #### CMP ####[facility] ([address], [place] [address] VIRBilirubin [Mass/Vol]0.9 mg/dLNormal0.3-1.2PCincinnati VA [facility] Center Comment on above:Performed By: #### CMP ####[facility] ([address] [place] [address] VIRCalcium [Mass/Vol]8.0 mg/dLLow 8.5-10.5PCincinnati VA Medical CenterComment on above:Performed By: #### CMP ####[facility] ([address], [place] [address] VIRChloride [Moles/Vol]97 mmol/FTdc86-144PlzRrfyvnBaylor Scott & White Medical Center – GrapevineComment on above:Performed By: #### CMP ####[facility] ([address] [place] [address] VIRCO2 [Moles/Vol]26 mmol/TWpxbdd78-51 [facility] HospitalComment on above:Performed By: #### CMP ####[facility] ([address] [place] [address] VIR Creatinine [Mass/Vol]0.73 mg/dLNormal0.40-1.00ProBaylor Scott & White Medical Center – GrapevineComment on above:Result Comment: METHOD TRACEABLE TO IDMS STANDARDPerformed By: #### CMP ####[facility] ([address], [place] [address] VIREGFR (CKD-EPI) NON-RACE DEPENDENT>^90Normal>=60ProBaylor Scott & White Medical Center – GrapevineComment on above:Result Comment: eGFR not reported due to non-numeric value for Creatinine.Reported eGFR is based ontheCKD-EPI 2020 equation that doesnot use a race coefficient.Performed By: #### CMP ####[facility] ([address] [place] [address] VIRGlucose [Mass/Vol]118 mg/oRXjdx31-77TqgFvtdrpBaylor Scott & White Medical Center – GrapevineComment on above:Performed By: #### CMP ####[facility] ([address] [place] [address] VIRPotassium [Moles/Vol]3.4 mmol/LLow3.5-5.0ProBaylor Scott & White Medical Center – GrapevineComment on above:Performed By: #### CMP ####[address] [place] [address] VIRProtein [Mass/Vol]6.1 g/dLNormal6.0-8.0ProBaylor Scott & White Medical Center – GrapevineComment on above: Performed By: #### CMP ####[address] [place] [address] VIRSodium [Moles/Vol]134 mmol/RCerqda952-867RwdKrlchd Fremont HospitalComment on above:Performed By: #### CMP ####[address] [place] [address] VIRUrea nitrogen [Mass/Vol]18 mg/dLNormal5-27ProBaylor Scott & White Medical Center – GrapevineComment on above:Performed By: #### CMP ####[facility] ([address] [place] [address] VIRMAGNESIUMon [id number] [Mass/Vol]2.0 mg/dL Normal1.8-2.6ProBaylor Scott & White Medical Center – GrapevineComment on above:Performed By: #### MG ####[facility] ([address], [place] [address] VIRBEDSIDE GLUCOSEon [id number] [Mass/Vol]134 mg/cMIhcj54-62GfsNnlihdMorrow County HospitalComment on above:Performed By: #### BEDG ####[facility] ([address], [id number] VIRGlucose [Mass/Vol] 145 mg/sIIpkv51-39DtmXijkwkBaylor Scott & White Medical Center – GrapevineComment on above:Performed By: #### BEDG ####[facility] ([address] [place] [address] VIRGlucose [Mass/Vol]116 mg/gFTrel21-68ZndVjxjonMorrow County HospitalComment on above:Performed By: #### BEDG ####[facility] ([address], [id number] VIRCBC WITH AUTO DIFFERENTIALon [id number] ABSOLUTE COUNT (10*3/UL) BY AUTOMATED COUNT0.1 10*3/uLNormal 0.0-0.2PCincinnati VA Medical CenterComment on above:Performed By: #### CBCA ####[facility] ([address], [id number] VIRBASOPHILS RELATIVE PERCENT BY AUTOMATED COUNT1.2 %NormalProBaylor Scott & White Medical Center – GrapevineComment on above:Performed By: #### CBCA ####[facility] ([address], [id number] VIRCELLAVISION DIFFERENTIAL TYPEAUTOMATED DIFFERENTIALNormalMorrow County HospitalComment on above: Performed By: #### CBCA ####[facility] ([address] [id number] VIREosinophils (Bld) [#/Vol]0.2 10*3/uLNormal0.0-0.4 [facility] HospitalComment on above:Performed By: #### CBCA ####[facility] HOSPITAL ([address], [id number] VIR EOSINOPHILS RELATIVE PERCENT BY AUTOMATED COUNT2.8 %NormalMorrow County HospitalComment on above:Performed By: #### CBCA ####[facility] ([address], [id number] VIRErythrocyte distribution width (RBC) [Ratio]19.8 %High11.5-15ProBaylor Scott & White Medical Center – GrapevineComment on above: Performed By: #### CBCA ####[facility] ([address], [id number] VIRHematocrit (Bld) [Volume fraction]24.6 %Jaa72-39 [facility] County HospitalComment on above:Performed By: #### CBCA ####[facility] ([address], [id number] VIRHemoglobin (Bld) [Mass/Vol]7.8 g/dLLow11.7-15.5PCincinnati VA Medical CenterComment on above: Performed By: #### CBCA ####[facility] ([address], [id number] VIRLYMPHOCYTES ABSOLUTE COUNT (10*3/UL) BY AUTOMATED COUNT1.2 10*3/uLNormal1.0-3.5PCincinnati VA Medical CenterComment on above: Performed By: #### CBCA ####[facility] ([address], [id number] VIRLYMPHOCYTES RELATIVE PERCENT BY AUTOMATED COUNT13.9 %NormalMorrow County HospitalComment on above:Performed By: #### CBCA ####[facility] ([address], [id number] VIRMCH (RBC) [Entitic mass]25.2 jxPih32-83JlsEsohxf Edwards HospitalComment on above:Performed By: #### CBCA ####[facility] ([address], [id number] VIRMCHC (RBC) [Mass/Vol]31.7 g/bQGgv03-08 [facility] HospitalComment on above:Performed By: #### CBCA ####[facility] ([address], [id number] VIRMCV (RBC) [Entitic vol]79 gIXvg96-918NvjHktfdxBaylor Scott & White Medical Center – GrapevineComment on above:Performed By: #### CBCA ####[facility] ([address], [id number] VIRMONOCYTES ABSOLUTE COUNT (10*3/UL) BY AUTOMATED COUNT0.6 10*3/uLNormal0.0-0.9M[facility] County HospitalComment on above:Performed By: #### CBCA ####[facility] ([address], [id number] VIRMONOCYTES RELATIVE PERCENT BY AUTOMATED COUNT7.3 %Normal [facility] County HospitalComment on above:Performed By: #### CBCA ####[facility] ([address], [id number] VIR NEUTROPHILS ABSOLUTE COUNT BY AUTOMATED COUNT6.2 10*3/uLNormal1.5-6.6Morrow County HospitalComment on above:Performed By: #### CBCA ####[facility] ([address], [id number] VIRNEUTROPHILS RELATIVE PERCENT BY AUTOMATED COUNT74.8 %NormalMorrow County HospitalComment on above:Performed By: #### CBCA ####[facility] ([address], [id number] VIRPlatelet mean volume (Bld) [Entitic vol]7.8 fLNormal7-12PCincinnati VA Medical CenterComment on above:Performed By: #### CBCA ####[facility] ([address], [place] VIRPlatelets (Bld) [#/Vol]273 10*3/rKFgxzly619-040GflOeedxo Fremont HospitalComment on above:Performed By: #### CBCA ####[facility] ([facility])[address] [place], [place] [address], [place] VIRRBC COUNT3.10 X10E12/LLow3.8-5.2PCincinnati VA Medical CenterComment on above:Performed By: #### CBCA ####[facility] ([address] [place] [address] VIRWBC (Bld) [#/Vol]8.3 10*3/uLNormal4-11ProBaylor Scott & White Medical Center – GrapevineComment on above:Performed By: #### CBCA ####[facility] ([address], [place] VIRCOMPREHENSIVE METABOLIC PANELon 04-84-3531Qrnabog [Mass/Vol]3.0 g/dLLow3.2-5.3PCincinnati VA Medical CenterComment on above:Performed By: #### CMP ####[facility] ([address] [place] [address] VIRALP [Catalytic activity/Vol]68 U/LNormal 39-130ProBaylor Scott & White Medical Center – GrapevineComment on above:Performed By: #### CMP ####[facility] ([address], [place] [address] VIRALT [Catalytic activity/Vol]12 U/LNormal<=31PCincinnati [facility] Center Comment on above:Performed By: #### CMP ####[facility] ([facility])[address] [place], [place] [address] [place] [address] VIRAnion gap [Moles/Vol]14 mmol/L Normal5-15ProBaylor Scott & White Medical Center – GrapevineComment on above:Performed By: #### CMP ####[facility] ([facility] [address], [place] [address] VIRAST [Catalytic activity/Vol]14 U/LNormal<=41[facility] Comment on above:Performed By: #### CMP ####[facility] ([place] [address] [place] [address] VIRBilirubin [Mass/Vol]0.8 mg/dLNormal 0.3-1.2PCincinnati VA Medical CenterComment on above:Performed By: #### CMP ####[facility] ([address] [address] VIRCalcium [Mass/Vol]8.2 mg/dLLow8.5-10.5PCincinnati VA Medical CenterComment on above:Performed By: #### CMP ####[facility] ([address] [place] [address] VIRChloride [Moles/Vol]99 mmol/UJkhwkd37-524 [facility] HospitalComment on above:Performed By: #### CMP ####[facility] ([address] [place] [address] VIRCO2 [Moles/Vol]26 mmol/FIgmbfa50-08OwgSoizdbCincinnati VA Medical CenterComment on above: Performed By: #### CMP ####[facility] ([address] [place] [address] VIRCreatinine [Mass/Vol]0.81 mg/dLNormal0.40-1.00 [facility] HospitalComment on above:Result Comment: METHOD TRACEABLE TO IDMS STANDARDPerformed By: #### CMP ####[facility] ([place] [address] [place] [address] VIRGFR/1.73 sq M.predicted among non- blacks MDRD (S/P/Bld) [Vol rate/Area]81 mL/min/{1.73_m2}Normal>=60ProBaylor Scott & White Medical Center – GrapevineComment on above:Result Comment: eGFR not reported due to non- numeric value for Creatinine.Reported eGFR is based ontheCKD-EPI 2020 equation that doesnot use a race coefficient.Performed By: #### CMP ####[facility] ([address] [place] [address] VIRGlucose [Mass/Vol]108 mg/aARbdp98-60DjnAgvekmBaylor Scott & White Medical Center – GrapevineComment on above:Performed By: #### CMP ####[facility] ([address] [place] [address] VIRPotassium [Moles/Vol]3.0 mmol/LLow3.5-5.0ProBaylor Scott & White Medical Center – GrapevineComment on above:Performed By: #### CMP ####[facility] ([address] [place] [address] VIRProtein [Mass/Vol]6.2 g/dLNormal6.0-8.0ProBaylor Scott & White Medical Center – GrapevineComment on above: Performed By: #### CMP ####[address] [place] [address] VIRSodium [Moles/Vol]139 mmol/JJaycke184-905WvbJsmliw Fremont HospitalComment on above:Performed By: #### CMP ####[facility] ([address] [place] [address] VIRUrea nitrogen [Mass/Vol]20 mg/dLNormal5-27ProBaylor Scott & White Medical Center – GrapevineComment on above:Performed By: #### CMP ####[facility] ([address] [place] [address] VIRMAGNESIUMon 98-33-2339Vchjipxfr [Mass/Vol]2.2 mg/dL Normal1.8-2.6ProBaylor Scott & White Medical Center – GrapevineComment on above:Performed By: #### MG ####[facility] ([address], [place] [address] VIRPOTASSIUMon 58-37-5780Vzrnoooqv [Moles/Vol]2.6 mmol/LCritically low 3.5-5.0ProBaylor Scott & White Medical Center – GrapevineComment on above:Performed By: #### K ####[facility] ([address] [address] VIRBEDSIDE GLUCOSEon 56-95-9126Yotlceb [Mass/Vol]119 mg/xQXyav99-44ZxrFxbjbkBaylor Scott & White Medical Center – GrapevineComment on above:Performed By: #### BEDG ####[facility] ([address] VIRGlucose [Mass/Vol] 91 mg/gEMjpmeo12-24NziRrwkwdBaylor Scott & White Medical Center – GrapevineComment on above:Performed By: #### BEDG ####[facility] ([address] VIRGlucose [Mass/Vol]113 mg/yIKrse73-08PyeRiwsykBaylor Scott & White Medical Center – GrapevineComment on above:Performed By: #### BEDG ####[facility] ([address] VIRC-REACTIVE PROTEINon 5C REACTIVE PROTEIN7.8 mg/dLHigh<=0.7ProBaylor Scott & White Medical Center – GrapevineComment on above: Performed By: #### CRP ####[facility] ([address] [address] VIRCBC WITH AUTO DIFFERENTIALon 77-61-4984XLYXPQOXG ABSOLUTE COUNT (10*3/UL) BY AUTOMATED COUNT0.1 10*3/uLNormal0.0-0.2ProMedArrowhead Regional Medical CenterComment on above:Performed By: #### CBCA ####[facility] ([address], [id number] VIRBASOPHILS RELATIVE PERCENT BY AUTOMATED COUNT0.7 %NormalMorrow County HospitalComment on above:Performed By: #### CBCA ####[facility] ([address], [id number] VIRCELLAVISION DIFFERENTIAL TYPEAUTOMATED DIFFERENTIALNormalProBaylor Scott & White Medical Center – GrapevineComment on above:Performed By: #### CBCA ####[facility] ([address] [place] [address] VIREosinophils (Bld) [#/Vol]0.3 10*3/uLNormal0.0-0.4Morrow County HospitalComment on above:Performed By: #### CBCA ####[facility] ([address], [id number] VIREOSINOPHILS RELATIVE PERCENT BY AUTOMATED COUNT3.4 %NormalMorrow County HospitalComment on above: Performed By: #### CBCA ####[facility] ([address], [id number] VIRErythrocyte distribution width (RBC) [Ratio]20.2 % High11.5-15M[facility] County HospitalComment on above:Performed By: #### CBCA ####[facility] ([address], [id number] VIRHematocrit (Bld) [Volume fraction]23.4 %Lln09-03PpkPqhbniBaylor Scott & White Medical Center – Grapevine Comment on above:Performed By: #### CBCA ####[facility] ([address], [id number] VIRHemoglobin (Bld) [Mass/Vol]7.6 g/dL Low11.7-15.5ProMedica Queen Of The Valley Medical CenterComment on above:Performed By: #### CBCA ####[facility] ([facility])[address] [place], [place] [address].[place], [id number] VIRLYMPHOCYTES ABSOLUTE COUNT (10*3/UL) BY AUTOMATED COUNT1.4 10*3/uLNormal 1.0-3.5PCincinnati VA Medical CenterComment on above:Performed By: #### CBCA ####[facility] ([facility])[address] [place], [place] [address].[place], [id number] VIRLYMPHOCYTES RELATIVE PERCENT BY AUTOMATED COUNT15.6 %NormalProBaylor Scott & White Medical Center – GrapevineComment on above:Performed By: #### CBCA ####[facility] ([facility])[address] [place] [address] AVE.[place], [id number] VIRMCH (RBC) [Entitic mass] 25.7 xkXyd50-96IqnEtkmizMorrow County HospitalComment on above:Performed By: #### CBCA ####[facility] ([facility])[address] [place] [address] [place] [address] VIRMCHC (RBC) [Mass/Vol]32.4 g/nCHqicmh24-57SejHlacoyMorrow County Hospital Comment on above:Performed By: #### CBCA ####[facility] ([facility])[address] [place] [address] AVE.[place], [id number] VIRMCV (RBC) [Entitic vol]79 fLLow 80-100M[facility] County HospitalComment on above:Performed By: #### CBCA ####[facility] ([facility])[address] [place] [address] AVE.[place], [id number] VIRMONOCYTES ABSOLUTE COUNT (10*3/UL) BY AUTOMATED COUNT0.7 10*3/uLNormal0.0-0.9 [facility] HospitalComment on above:Performed By: #### CBCA ####[facility] ([facility])[address] [place], [place] [address], [id number] VIRMONOCYTES RELATIVE PERCENT BY AUTOMATED COUNT8.4 %NormalProBaylor Scott & White Medical Center – GrapevineComment on above:Performed By: #### CBCA ####[facility] ([facility])[address], [id number] VIRNEUTROPHILS ABSOLUTE COUNT BY AUTOMATED COUNT6.2 10*3/uLNormal1.5-6.6ProBaylor Scott & White Medical Center – GrapevineComment on above:Performed By: #### CBCA ####[facility] ([facility])[address] [place], [place] [address].[place], [id number] VIRNEUTROPHILS RELATIVE PERCENT BY AUTOMATED COUNT71.9 %NormalMorrow County HospitalComment on above:Performed By: #### CBCA ####[facility] ([facility] [place] [address] VIRPlatelet mean volume (Bld) [Entitic vol]7.4 fLNormal7-12PCincinnati VA Medical CenterComment on above:Performed By: #### CBCA ####[facility] ([facility])[address] [place], [place] [address].[place], [id number] VIRPlatelets (Bld) [#/Vol]219 10*3/tUYrjmeo147-019CoiNtowyw [facility]ont HospitalComment on above: Performed By: #### CBCA ####[facility] ([facility])[address] [place], [place] [address].[facility]UN[facility], [id number] VIRRBC COUNT2.95 X10E12/LLow3.8-5.2PCincinnati VA Medical CenterComment on above:Performed By: #### CBCA ####[facility] ([address], [id number] VIRWBC (Bld) [#/Vol]8.7 10*3/uLNormal4-11ProLancaster Municipal Hospital HospitalComment on above:Performed By: #### CBCA ####[facility] ([facility] [address] [place] [address] VIRCOMPREHENSIVE METABOLIC PANELon 67-38-3251Vetnrkq [Mass/Vol]2.8 g/dLLow 3.2-5.3PCincinnati VA Medical CenterComment on above:Performed By: #### CMP ####[facility] ([facility], [place] [address] VIRALP [Catalytic activity/Vol]71 U/ZNuijto14-926CrvJkuesuMorrow County Hospital Comment on above:Performed By: #### CMP ####[facility] ([place] [address] [place] [address] VIRALT [Catalytic activity/Vol]12 U/L Normal<=31PCincinnati VA Medical CenterComment on above:Performed By: #### CMP ####[facility] ([place] [address], [place] [address] VIRAnion gap [Moles/Vol]10 mmol/LNormal5-15[facility] Comment on above:Performed By: #### CMP ####[facility] ([place] [address] [place] [address] VIRAST [Catalytic activity/Vol]10 U/L Normal<=41ProBaylor Scott & White Medical Center – GrapevineComment on above:Performed By: #### CMP ####[facility] ([place] [address], [place] [address] VIRBilirubin [Mass/Vol]0.7 mg/dLNormal0.3-1.2PC[facility] Comment on above:Performed By: #### CMP ####[facility] ([place] [address] [place] [address] VIRCalcium [Mass/Vol]8.3 mg/dLLow 8.5-10.5PCincinnati VA Medical CenterComment on above:Performed By: #### CMP ####[facility] ([place] [address], [place] [address] VIRChloride [Moles/Vol]102 mmol/OQvilgd79-991SilPhqxqvMorrow County Hospital Comment on above:Performed By: #### CMP ####[facility] ([address] [place] [address] VIRCO2 [Moles/Vol]28 mmol/UJvwphu97-10 ProMMarina Del Rey HospitalComment on above:Performed By: #### CMP ####[facility] ([address] [place] [address] VIR Creatinine [Mass/Vol]0.80 mg/dLNormal0.40-1.00M[facility] County HospitalComment on above:Result Comment: METHOD TRACEABLE TO IDMS STANDARDPerformed By: #### CMP ####[facility] ([address] [address] VIRGFR/1.73 sq M.predicted among non-blacks MDRD (S/P/Bld) [Vol rate/Area] 82 mL/min/{1.73_m2}Normal>=60ProBaylor Scott & White Medical Center – GrapevineComment on above:Result Comment: eGFR not reported due to non-numeric value for Creatinine.Reported eGFR is based ontheCKD-EPI 1 equation that doesnot use a race coefficient. Performed By: #### CMP ####[facility]ITALAri[facility] ([address] [place] [address] VIRGlucose [Mass/Vol]109 mg/iAQvwd01-91YtlQuwmclBaylor Scott & White Medical Center – GrapevineComment on above:Performed By: #### CMP ####[facility] ([address] [place] [address] VIRPotassium [Moles/Vol]3.2 mmol/LLow3.5-5.0ProBaylor Scott & White Medical Center – GrapevineComment on above: Performed By: #### CMP ####[facility] ([address] [place] [address] VIRProtein [Mass/Vol]5.9 g/dLLow6.0-8.0ProBaylor Scott & White Medical Center – GrapevineComment on above:Performed By: #### CMP ####[facility] ([address] [place] [address] VIRSodium [Moles/Vol]140 mmol/QOyouru890-827JyrAijfaa Fremont HospitalComment on above: Performed By: #### CMP ####[facility] ([address] [place] [address] VIRUrea nitrogen [Mass/Vol]20 mg/dLNormal5-27 ProMMarina Del Rey HospitalComment on above:Performed By: #### CMP ####[facility] ([address] [place] [address] VIRMAGNESIUM on 86-43-0214Nytuoubon [Mass/Vol]2.2 mg/dLNormal1.8-2.6ProBaylor Scott & White Medical Center – GrapevineComment on above:Performed By: #### MG ####[facility] ([address] [place] [address] VIRPOTASSIUMon 12-09-2024 Potassium [Moles/Vol]3.4 mmol/LLow3.5-5.0ProBaylor Scott & White Medical Center – GrapevineComment on above:Performed By: #### K ####[facility] ([address] [place] [address] VIRBEDSIDE GLUCOSEon 34-48-3432Zfuwhfw [Mass/Vol]151 mg/oZRpuq38-91GfyBqaxerBaylor Scott & White Medical Center – GrapevineComment on above:Performed By: #### BEDG ####[facility] ([address], [place] VIRGlucose [Mass/Vol]100 mg/tTJqlx14-55UxyCenoipBaylor Scott & White Medical Center – GrapevineComment on above:Performed By: #### BEDG ####[facility] ([address], [id number] VIRGlucose [Mass/Vol]151 mg/dL Nuzf22-17OssJbpmlyBaylor Scott & White Medical Center – GrapevineComment on above:Performed By: #### BEDG ####[facility] ([address], [id number] VIRC-REACTIVE PROTEINon 12-08-2024 REACTIVE PROTEIN8.5 mg/dLHigh<=0.7ProBaylor Scott & White Medical Center – GrapevineComment on above:Performed By: #### CRP ####[facility] ([address] [place] [address] VIRCBC WITH AUTO DIFFERENTIALon 38-04-8501TBJQGPDLR ABSOLUTE COUNT (10*3/UL) BY AUTOMATED COUNT 0.0 10*3/uLNormal0.0-0.2ProMedArrowhead Regional Medical CenterComment on above:Performed By: #### CBCA ####[facility] ([address], [id number] VIRBASOPHILS RELATIVE PERCENT BY AUTOMATED COUNT0.4 %Normal [facility] HospitalComment on above:Performed By: #### CBCA ####[facility] ([address], [id number] VIR CELLAVISION DIFFERENTIAL TYPEAUTOMATED DIFFERENTIALNormalProBaylor Scott & White Medical Center – GrapevineComment on above:Performed By: #### CBCA ####[facility] ([address], [id number] VIREosinophils (Bld) [#/Vol] 0.2 10*3/uLNormal0.0-0.4ProBaylor Scott & White Medical Center – GrapevineComment on above:Performed By: #### CBCA ####[facility] ([address], [id number] VIREOSINOPHILS RELATIVE PERCENT BY AUTOMATED COUNT2.2 % NormalProBaylor Scott & White Medical Center – GrapevineComment on above:Performed By: #### CBCA ####[facility] ([address], [id number] VIRErythrocyte distribution width (RBC) [Ratio]20.2 %High11.5-15M[facility] County HospitalComment on above:Performed By: #### CBCA ####[facility] ([address], [id number] VIRHematocrit (Bld) [Volume fraction]24.2 %Rzz06-88JghWkndpuBaylor Scott & White Medical Center – GrapevineComment on above: Performed By: #### CBCA ####[facility] ([address], [id number] VIRHemoglobin (Bld) [Mass/Vol]7.7 g/dLLow11.7-15.5 [facility] HospitalComment on above:Performed By: #### CBCA ####[facility] ([address], [id number] VIR LYMPHOCYTES ABSOLUTE COUNT (10*3/UL) BY AUTOMATED COUNT1.4 10*3/uLNormal1.0-3.5 [facility] HospitalComment on above:Performed By: #### CBCA ####[facility] ([address], [id number] VIR LYMPHOCYTES RELATIVE PERCENT BY AUTOMATED COUNT12.6 %NormalProBaylor Scott & White Medical Center – GrapevineComment on above:Performed By: #### CBCA ####[facility] ([address], [id number] VIRMCH (RBC) [Entitic mass] 25.4 umZnu28-31HvyXmdbnjMorrow County HospitalComment on above:Performed By: #### CBCA ####[facility]ITALA [facility] ([address] [place] [address] VIRMCHC (RBC) [Mass/Vol]31.7 g/bOUdf45-88CnzUsrofeBaylor Scott & White Medical Center – GrapevineComment on above:Performed By: #### CBCA ####[facility] ([facility])[address] [place] [address] AVE.[facility]UN[facility], [id number] VIRMCV (RBC) [Entitic vol]80 fLNormal 80-100M[facility] HospitalComment on above:Performed By: #### CBCA ####[facility] ([address], [id number] VIRMONOCYTES ABSOLUTE COUNT (10*3/UL) BY AUTOMATED COUNT1.0 10*3/uLHigh0.0-0.9 [facility] on above:Performed By: #### CBCA ####[facility] ([address], [id number] VIRMONOCYTES RELATIVE PERCENT BY AUTOMATED COUNT8.8 %NormalMorrow County HospitalComascension standish hospital on above:Performed By: #### CBCA ####[facility] ([address], [id number] VIRNEUTROPHILS ABSOLUTE COUNT BY AUTOMATED COUNT8.3 10*3/uLHigh1.5-6.6[facility] on above: Performed By: #### CBCA ####[facility] ([address], [id number] VIRNEUTROPHILS RELATIVE PERCENT BY AUTOMATED COUNT76.0 %NormalMorrow County HospitalComascension standish hospital on above:Performed By: #### CBCA ####[facility] ([address], [id number] VIRPlatelet mean volume (Bld) [Entitic vol]7.0 fLNormal7-12Pro[facility] The Valley Medical CenterComment on above:Performed By: #### CBCA ####[facility] ([address], [id number] VIRPlatelets (Bld) [#/Vol]192 10*3/lGVkqgfd505-872TskLxeiik Fremont HospitalComment on above:Performed By: #### CBCA ####[facility] ([facility])[address] [place], [place] [address]E.[place], [place] VIRRBC COUNT3.02 X10E12/LLow3.8-5.2PCincinnati VA Medical CenterComment on above:Performed By: #### CBCA ####[facility] ([facility])[address] [place], [place] [address]T [address]VE.[place], [place] VIRWBC (Bld) [#/Vol]10.9 10*3/uLNormal4-11ProBaylor Scott & White Medical Center – GrapevineComment on above:Performed By: #### CBCA ####[facility] ([address] [place] [address] VIRCOMPREHENSIVE METABOLIC PANELon [id number] [Mass/Vol]3.0 g/dLLow 3.2-5.3PCincinnati VA Medical CenterComment on above:Performed By: #### CMP ####[facility] ([address], [place] [address] VIRALP [Catalytic activity/Vol]73 U/YCgdhzu02-204BqtUepwpvMorrow County Hospital Comment on above:Performed By: #### CMP ####[facility] ([address] [place] [address] VIRALT [Catalytic activity/Vol]13 U/L Normal<=31PCincinnati VA Medical CenterComment on above:Performed By: #### CMP ####[facility] ([address], [place] [address] VIRAnion gap [Moles/Vol]9 mmol/LNormal5-15ProBaylor Scott & White Medical Center – GrapevineComment on above:Performed By: #### CMP ####[facility] ([address] [place] [address] VIRAST [Catalytic activity/Vol]13 U/L Normal<=41ProBaylor Scott & White Medical Center – GrapevineComment on above:Performed By: #### CMP ####[facility] ([facility])[address] [place] [address] VIRBilirubin [Mass/Vol]0.7 mg/dLNormal0.3-1.2PC[facility] Comment on above:Performed By: #### CMP ####[facility] ([address] [address] VIRCalcium [Mass/Vol]8.4 mg/dLLow 8.5-10.5PCincinnati VA Medical CenterComment on above:Performed By: #### CMP ####[facility] ([address] [address] VIRChloride [Moles/Vol]106 mmol/NByzkvi52-214UoiHihxxfMorrow County Hospital Comment on above:Performed By: #### CMP ####[facility] ([address] [address] VIRCO2 [Moles/Vol]23 mmol/GCbivkx96-83 [facility] HospitalComment on above:Performed By: #### CMP ####[facility] ([address] [address] VIR Creatinine [Mass/Vol]0.85 mg/dLNormal0.40-1.00ProBaylor Scott & White Medical Center – GrapevineComment on above:Result Comment: METHOD TRACEABLE TO IDCT STANDARDPerformed By: #### CMP ####[facility] ([address] [address] VIRGFR/1.73 sq M.predicted among non-blacks MDRD (S/P/Bld) [Vol rate/Area] 76 mL/min/{1.73_m2}Normal>=60ProBaylor Scott & White Medical Center – GrapevineComment on above:Result Comment: eGFR not reported due to non-numeric value for Creatinine.Reported eGFR is based ontheCKD-EPI 2020 equation that doesnot use a race coefficient. Performed By: #### CMP ####[facility] ([address] [place] [address] VIRGlucose [Mass/Vol]131 mg/pAMhqi78-91GihNiunuoBaylor Scott & White Medical Center – GrapevineComment on above:Performed By: #### CMP ####[facility] ([address] [place] [address] VIRPotassium [Moles/Vol]4.0 mmol/LNormal3.5-5.0ProBaylor Scott & White Medical Center – GrapevineComment on above: Performed By: #### CMP ####[facility] ([address] [place] [address] VIRProtein [Mass/Vol]6.3 g/dLNormal6.0-8.0ProBaylor Scott & White Medical Center – GrapevineComment on above:Performed By: #### CMP ####[facility] ([address] [place] [address] VIRSodium [Moles/Vol]138 mmol/HYbhnkj011-332PnjYsubfl [facility]remont HospitalComment on above: Performed By: #### CMP ####[facility] ([address] [place] [address] VIRUrea nitrogen [Mass/Vol]19 mg/dLNormal5-27 ProMMarina Del Rey HospitalComment on above:Performed By: #### CMP ####[facility] ([address] [place] [address] VIRMAGNESIUM on 78-62-1013Drzaminbr [Mass/Vol]2.2 mg/dLNormal1.8-2.6ProBaylor Scott & White Medical Center – GrapevineComment on above:Performed By: #### MG ####[facility] ([address] [place] [address] VIRVANCOMYCIN, PEAKon 89-72-3831FOMVXAWWAP PEAK40.3 ug/oESuim34.0-40.0[facility] Comment on above:Order Comment: To be drawn 1 to 2 hours after the end of the 1700 dosePerformed By: #### VANCPK ####[facility] ([address] [place] [address] VIRVANCOMYCIN, TROUGHon 12-08-2024 VANCOMYCIN BATFHF03.4 ug/mLNormal5.0-20.0ProBaylor Scott & White Medical Center – GrapevineComment on above:Order Comment: To be drawn prior to the 1700 dosePerformed By: #### VANCTR ####[facility] ([address] [address] VIRBEDSIDE GLUCOSEon 07-60-9829Xeaoojg [Mass/Vol]117 mg/iXOjme89-17 [facility] HospitalComment on above:Performed By: #### BEDG ####[facility] ([address] [facility] [id number] VIRGlucose [Mass/Vol]180 mg/jMEvkj91-41BehIqfqadBaylor Scott & White Medical Center – GrapevineComment on above:Performed By: #### BEDG ####[facility] ([address] [id number] VIRGlucose [Mass/Vol]139 mg/rAMnqv43-62OfdFmsdyeBaylor Scott & White Medical Center – GrapevineComment on above:Performed By: #### BEDG ####[facility] ([address] VIRC-REACTIVE PROTEINon 12-07-2024 REACTIVE FHDFIJX14.7 mg/dLHigh<=0.7M[facility] County HospitalComment on above:Performed By: #### CRP ####[address] [address] VIRCBC WITH AUTO DIFFERENTIALon 98-20-1635CYQWQNSPM ABSOLUTE COUNT (10*3/UL) BY AUTOMATED COUNT0.0 10*3/uLNormal 0.0-0.2ProMedica Queen Of The Valley Medical CenterComment on above:Performed By: #### CBCA ####[facility] ([address], [id number] VIRBASOPHILS RELATIVE PERCENT BY AUTOMATED COUNT0.5 %NormalMorrow County HospitalComment on above:Performed By: #### CBCA ####[facility] ([address], [id number] VIRCELLAVISION DIFFERENTIAL TYPEAUTOMATED DIFFERENTIALNormalMorrow County HospitalComment on above: Performed By: #### CBCA ####[facility] ([address], [id number] VIREosinophils (Bld) [#/Vol]0.0 10*3/uLNormal0.0-0.4 [facility] HospitalComment on above:Performed By: #### CBCA ####[facility] ([address], [id number] VIR EOSINOPHILS RELATIVE PERCENT BY AUTOMATED COUNT0.1 %NormalMorrow County HospitalComment on above:Performed By: #### CBCA ####[facility] ([address], [id number] VIRErythrocyte distribution width (RBC) [Ratio]20.1 %High11.5-15M[facility] County HospitalComment on above: Performed By: #### CBCA ####[facility] ([address] [place] [place], [id number] VIRHematocrit (Bld) [Volume fraction]21.7 %Vuz49-84 [facility] HospitalComment on above:Performed By: #### CBCA ####[facility] ([address], [id number] VIRHemoglobin (Bld) [Mass/Vol]7.1 g/dLLow11.7-15.5PCincinnati VA Medical CenterComment on above: Performed By: #### CBCA ####[facility] ([address], [id number] VIRLYMPHOCYTES ABSOLUTE COUNT (10*3/UL) BY AUTOMATED COUNT0.8 10*3/uLLow1.0-3.5PCincinnati VA Medical CenterComment on above:Performed By: #### CBCA ####[facility] ([address], [id number] VIRLYMPHOCYTES RELATIVE PERCENT BY AUTOMATED COUNT8.1 % NormalProBaylor Scott & White Medical Center – GrapevineComment on above:Performed By: #### CBCA ####[facility] ([address], [id number] VIRMCH (RBC) [Entitic mass]25.5 dfJmb17-41FoiXfqxjeMorrow County HospitalComment on above:Performed By: #### CBCA ####[facility] ([address], [id number] VIRMCHC (RBC) [Mass/Vol]33.0 g/fBBwyper47-50 [facility] HospitalComment on above:Performed By: #### CBCA ####[facility] ([address], [id number] VIRMCV (RBC) [Entitic vol]77 eRRne25-640KskGilhejBaylor Scott & White Medical Center – GrapevineComment on above:Performed By: #### CBCA ####[facility] ([address], [id number] VIRMONOCYTES ABSOLUTE COUNT (10*3/UL) BY AUTOMATED COUNT0.9 10*3/uLNormal0.0-0.9M[facility] County HospitalComment on above:Performed By: #### CBCA ####[facility] ([facility])[address] [place], [place] [address]VE.[place], [id number] VIRMONOCYTES RELATIVE PERCENT BY AUTOMATED COUNT9.1 %Normal [facility] HospitalComment on above:Performed By: #### CBCA ####[facility] ([facility])[address] [place], [place] [address]VE[address], [id number] VIR NEUTROPHILS ABSOLUTE COUNT BY AUTOMATED COUNT7.7 10*3/uLHigh1.5-6.6ProBaylor Scott & White Medical Center – GrapevineComment on above:Performed By: #### CBCA ####[facility] ([address], [id number] VIRNEUTROPHILS RELATIVE PERCENT BY AUTOMATED COUNT82.2 %NormalMorrow County HospitalComment on above:Performed By: #### CBCA ####[facility] ([address], [id number] VIRPlatelet mean volume (Bld) [Entitic vol]6.6 fLLow7-12PCincinnati VA Medical CenterComment on above:Performed By: #### CBCA ####[facility] ([address] [place] [address] VIRPlatelets (Bld) [#/Vol]166 10*3/cTQvbvka465-284DyiUlmbny Fremont HospitalComment on above:Performed By: #### CBCA ####[facility] ([address], [id number] VIRRBC COUNT2.80 X10E12/LLow 3.8-5.2PCincinnati VA Medical CenterComment on above:Performed By: #### CBCA ####[facility] ([address], [id number] VIRWBC (Bld) [#/Vol]9.4 10*3/uLNormal4-11ProBaylor Scott & White Medical Center – GrapevineComment on above:Performed By: #### CBCA ####[facility] ([place] [address], [place] VIRCOMPREHENSIVE METABOLIC PANELon 12-07-2024 Albumin [Mass/Vol]3.0 g/dLLow3.2-5.3PCincinnati VA Medical CenterComment on above: Performed By: #### CMP ####[facility] ([place] [address] [place] [address] VIRALP [Catalytic activity/Vol]73 U/RMibfit75-725 [facility] HospitalComment on above:Performed By: #### CMP ####[facility] ([address] [place] [address] VIRALT [Catalytic activity/Vol]14 U/LNormal<=31PCincinnati VA Medical CenterComment on above:Performed By: #### CMP ####[place] [address] [place] [address] VIRAnion gap [Moles/Vol]13 mmol/LNormal5-15 [facility] HospitalComment on above:Performed By: #### CMP ####[facility] ([address] [place] [address] VIRAST [Catalytic activity/Vol]14 U/LNormal<=41ProMedica Queen Of The Valley Medical CenterComment on above:Performed By: #### CMP ####[facility] ([place] [address] [address] VIRBilirubin [Mass/Vol]0.9 mg/dLNormal0.3-1.2 [facility] HospitalComment on above:Performed By: #### CMP ####[facility] ([address] [place] [address] VIRCalcium [Mass/Vol]8.2 mg/dLLow8.5-10.5PAdventHealth Littleton HospitalComment on above: Performed By: #### CMP ####[facility] ([address] [place] [address] VIRChloride [Moles/Vol]103 mmol/XTzfylx10-378 [facility] HospitalComment on above:Performed By: #### CMP ####[facility] ([address] [place] [address] VIRCO2 [Moles/Vol]23 mmol/SNruixy12-90EktRgjlty Queen Of The Valley Medical CenterComment on above: Performed By: #### CMP ####[facility] ([address] [place] [address] VIRCreatinine [Mass/Vol]0.71 mg/dLNormal0.40-1.00 [facility] HospitalComment on above:Result Comment: METHOD TRACEABLE TO IDMS STANDARDPerformed By: #### CMP ####[facility] ([address] [place] [address] VIREGFR (CKD-EPI) NON-RACE DEPENDENT >^90Normal>=60ProBaylor Scott & White Medical Center – GrapevineComment on above:Result Comment: Reported eGFR is based on theCKD-EPI 2020 equation that doesnot use a race coefficient.Performed By: #### CMP ####[facility] ([address] [place] [address] VIRGlucose [Mass/Vol]123 mg/dLHigh 65-99ProBaylor Scott & White Medical Center – GrapevineComment on above:Performed By: #### CMP ####[facility] ([address], [place] [address] VIRPotassium [Moles/Vol]2.6 mmol/LCritically low3.5-5.0M[facility] HospitalComment on above:Performed By: #### CMP ####[facility] ([address] [place] [address] VIRProtein [Mass/Vol]6.1 g/dL Normal6.0-8.0M[facility] HospitalComment on above:Performed By: #### CMP ####[facility] ([address], [place] [address] VIRSodium [Moles/Vol]139 mmol/YHvqery096-133FoeNvyarmStephens Memorial Hospital on above:Performed By: #### CMP ####[facility] ([address] [place] [address] VIRUrea nitrogen [Mass/Vol]14 mg/dL Normal5-27ProBaylor Scott & White Medical Center – GrapevineComment on above:Performed By: #### CMP ####[facility] ([address] [address] VIRMAGNESIUMon 69-12-7740Xadsgqycc [Mass/Vol]2.1 mg/dLNormal1.8-2.6 ProMMarina Del Rey HospitalComment on above:Performed By: #### MG ####[facility] ([address] [address] VIRMR FOOT LT W WO CONTon 63-62-3474OQ FOOT LT W WO CONTNormalProBaylor Scott & White Medical Center – Grapevine POTASSIUMon 71-23-2994Jtvduglqc [Moles/Vol]3.6 mmol/LNormal3.5-5.0ProBaylor Scott & White Medical Center – GrapevineComment on above:Performed By: #### K ####[facility] ([address] [place] [address] VIRPotassium [Moles/Vol]3.6 mmol/LNormal3.5-5.0ProBaylor Scott & White Medical Center – GrapevineComment on above: Performed By: #### K ####[facility] ([address] [address] VIRBEDSIDE GLUCOSEon 99-55-9870Thwiuzs [Mass/Vol]169 mg/zDFqop69-44YakWrmdcwBaylor Scott & White Medical Center – GrapevineComment on above:Performed By: #### BEDG ####[facility] ([facility])[address] [place] [address] AVE.[facility] [place] [address] VIRGlucose [Mass/Vol]170 mg/dNPftv91-22CdlIqauntBaylor Scott & White Medical Center – GrapevineComment on above:Performed By: #### BEDG ####[facility] ([facility])[address] [place] [address] AVE.[facility], [id number] VIRGlucose [Mass/Vol]145 mg/uDKrex40-26 ProMMarina Del Rey HospitalComment on above:Performed By: #### BEDG ####[facility] ([facility])[address] [place] [address] [address]VE.[place], [id number] VIRCBC WITH AUTO DIFFERENTIALon 59-10-2417XOIRGLODH ABSOLUTE COUNT (10*3/UL) BY AUTOMATED COUNT0.1 10*3/uLNormal0.0-0.2ProMedArrowhead Regional Medical CenterComment on above: Performed By: #### CBCA ####[facility] ([address], [id number] VIRBASOPHILS RELATIVE PERCENT BY AUTOMATED COUNT0.7 % NormalMorrow County HospitalComment on above:Performed By: #### CBCA ####[facility] ([facility])[address] [place] [address] AVE.[place], [id number] VIRCELLAVISION DIFFERENTIAL TYPEAUTOMATED DIFFERENTIALNormalProBaylor Scott & White Medical Center – GrapevineComment on above:Performed By: #### CBCA ####[facility] ([address], [id number] VIREosinophils (Bld) [#/Vol] 0.0 10*3/uLNormal0.0-0.4M[facility] County HospitalComment on above:Performed By: #### CBCA ####[facility] ([facility])[address] [place] [address] AVE.[place], [id number] VIREOSINOPHILS RELATIVE PERCENT BY AUTOMATED COUNT0.0 % NormalMorrow County HospitalComment on above:Performed By: #### CBCA ####[facility] ([address], [id number] VIRErythrocyte distribution width (RBC) [Ratio]20.3 %High11.5-15M[facility] County HospitalComment on above:Performed By: #### CBCA ####[facility] ([address], [id number] VIRHematocrit (Bld) [Volume fraction]22.9 %Iwb53-93NkdMgngiwBaylor Scott & White Medical Center – GrapevineComment on above: Performed By: #### CBCA ####[facility] ([address], [id number] VIRHemoglobin (Bld) [Mass/Vol]7.2 g/dLLow11.7-15.5 [facility] HospitalComment on above:Performed By: #### CBCA ####[facility] ([address], [id number] VIR LYMPHOCYTES ABSOLUTE COUNT (10*3/UL) BY AUTOMATED COUNT0.7 10*3/uLLow1.0-3.5 [facility] HospitalComascension standish hospital on above:Performed By: #### CBCA ####[facility] ([address], [id number] VIR LYMPHOCYTES RELATIVE PERCENT BY AUTOMATED COUNT5.9 %NormalProBaylor Scott & White Medical Center – GrapevineComment on above:Performed By: #### CBCA ####[facility] ([address], [id number] VIRMCH (RBC) [Entitic mass] 24.8 ugLjk41-47RyjOrtyueMorrow County HospitalComment on above:Performed By: #### CBCA ####[facility] ([address] [place] [address] VIRMCHC (RBC) [Mass/Vol]31.3 g/aXTqj64-35FzlIgqrybBaylor Scott & White Medical Center – GrapevineComment on above:Performed By: #### CBCA ####[facility] ([address], [id number] VIRMCV (RBC) [Entitic vol]79 fLLow 80-100ProBaylor Scott & White Medical Center – GrapevineComment on above:Performed By: #### CBCA ####[facility] ([address], [id number] VIRMONOCYTES ABSOLUTE COUNT (10*3/UL) BY AUTOMATED COUNT0.9 10*3/uLNormal0.0-0.9 [facility] HospitalComment on above:Performed By: #### CBCA ####[facility] ([address], [id number] VIRMONOCYTES RELATIVE PERCENT BY AUTOMATED COUNT7.4 %NormalMorrow County HospitalComment on above:Performed By: #### CBCA ####[facility] ([address], [id number] VIRNEUTROPHILS ABSOLUTE COUNT BY AUTOMATED COUNT9.9 10*3/uLHigh1.5-6.6ProBaylor Scott & White Medical Center – GrapevineComment on above: Performed By: #### CBCA ####[facility] ([address], [id number] VIRNEUTROPHILS RELATIVE PERCENT BY AUTOMATED COUNT86.0 %NormalMorrow County HospitalComment on above:Performed By: #### CBCA ####[facility] ([address], [id number] VIRPlatelet mean volume (Bld) [Entitic vol]6.5 fLLow7-12ProMedica Queen Of The Valley Medical CenterComment on above:Performed By: #### CBCA ####[facility] ([address], [id number] VIRPlatelets (Bld) [#/Vol]197 10*3/dATtjjfh708-119UjxIxijok [facility] HospitalComment on above:Performed By: #### CBCA ####[facility] ([facility])[address] [place], [place] [address], [place] VIRRBC COUNT2.89 X10E12/LLow3.8-5.2PCincinnati VA Medical CenterComment on above:Performed By: #### CBCA ####[facility] ([facility])[address] [place], [place] [address]T [address].[facility] [id number] VIRWBC (Bld) [#/Vol]11.5 10*3/uLHigh4-11M[facility] HospitalComment on above:Performed By: #### CBCA ####[facility] ([address] [place] [address] VIRCOMPREHENSIVE METABOLIC PANELon 11-04-8883Kugvjfx [Mass/Vol]2.9 g/dLLow 3.2-5.3PCincinnati VA Medical CenterComment on above:Performed By: #### CMP ####[facility] ([address], [place] [address] VIRALP [Catalytic activity/Vol]77 U/BNricgh24-938CclGhobkoMorrow County Hospital Comment on above:Performed By: #### CMP ####[facility] ([address] [place] [address] VIRALT [Catalytic activity/Vol]12 U/L Normal<=31PCincinnati VA Medical CenterComment on above:Performed By: #### CMP ####[facility] ([address], [place] [address] VIRAnion gap [Moles/Vol]12 mmol/LNormal5-15[facility] Comment on above:Performed By: #### CMP ####[facility] ([address] [place] [address] VIRAST [Catalytic activity/Vol]13 U/L Normal<=41ProBaylor Scott & White Medical Center – GrapevineComment on above:Performed By: #### CMP ####[facility] ([address], [place] [address] VIRBilirubin [Mass/Vol]0.5 mg/dLNormal0.3-1.2PCincinnati VA [facility] Center Comment on above:Performed By: #### CMP ####[facility] ([address] [place] [address] VIRCalcium [Mass/Vol]8.4 mg/dLLow 8.5-10.5PCincinnati VA Medical CenterComment on above:Performed By: #### CMP ####[facility] ([address], [place] [address] VIRChloride [Moles/Vol]112 mmol/MClap39-837DdcLztfxqMorrow County Hospital Comment on above:Performed By: #### CMP ####[facility] ([address] [place] [address] VIRCO2 [Moles/Vol]16 mmol/RPls31-20 [facility] HospitalComment on above:Performed By: #### CMP ####[facility] ([address] [place] [address] VIR Creatinine [Mass/Vol]0.88 mg/dLNormal0.40-1.00M[facility] County HospitalComment on above:Result Comment: METHOD TRACEABLE TO IDMS STANDARDPerformed By: #### CMP ####[facility] ([address] [address] VIRGFR/1.73 sq M.predicted among non-blacks MDRD (S/P/Bld) [Vol rate/Area] 73 mL/min/{1.73_m2}Normal>=60ProBaylor Scott & White Medical Center – GrapevineComment on above:Result Comment: eGFR not reported due to non-numeric value for Creatinine.Reported eGFR is based ontheCKD-EPI 1 equation that doesnot use a race coefficient. Performed By: #### CMP ####[facility] ([address] [place] [address] VIRGlucose [Mass/Vol]146 mg/yLQuza89-34ChvPsooarBaylor Scott & White Medical Center – GrapevineComment on above:Performed By: #### CMP ####[facility] ([address] [place] [address] VIRPotassium [Moles/Vol]3.5 mmol/LNormal3.5-5.0ProBaylor Scott & White Medical Center – GrapevineComment on above: Performed By: #### CMP ####[facility] ([address] [place] [address] VIRProtein [Mass/Vol]6.0 g/dLNormal6.0-8.0ProBaylor Scott & White Medical Center – GrapevineComment on above:Performed By: #### CMP ####[facility] ([address] [place] [address] VIRSodium [Moles/Vol]140 mmol/COwntfu547-791KleLdcrmo Fremont HospitalComment on above: Performed By: #### CMP ####[facility] ([address] [place] [address] VIRUrea nitrogen [Mass/Vol]24 mg/dLNormal5-27 ProMMarina Del Rey HospitalComment on above:Performed By: #### CMP ####[facility] ([address] [place] [address] VIRMAGNESIUM on 89-22-3912Bppncefmr [Mass/Vol]2.2 mg/dLNormal1.8-2.6ProBaylor Scott & White Medical Center – GrapevineComment on above:Performed By: #### MG ####[facility] ([address] [place] [address] VIRPOTASSIUMon 12-06-2024 Potassium [Moles/Vol]3.3 mmol/LLow3.5-5.0ProBaylor Scott & White Medical Center – GrapevineComment on above:Performed By: #### K ####[facility] ([facility])[address] [place] [address] [place] [address] VIRSUPERFICIAL WOUND CULTUREon 12-06-2024 SUPERFICIAL WOUND CULTURESusceptibleProBaylor Scott & White Medical Center – GrapevineComment on above: Performed By: #### WCSUP ####[facility] ([facility])[address], [place] [address] VIRBEDSIDE GLUCOSEon 80-16-1457Forxhwz [Mass/Vol]193 mg/aQIggh66-66YlsPeiuheBaylor Scott & White Medical Center – GrapevineComment on above:Performed By: #### BEDG ####[facility]ITALAri[facility] ([facility])[address] [place] [address] [address], [place] VIRGlucose [Mass/Vol]144 mg/pXJiph14-25GrqUorenyBaylor Scott & White Medical Center – GrapevineComment on above:Performed By: #### BEDG ####[facility] ([address], [place] VIRBLOOD CULTUREon 12-05-2024 Bacteria identified Cx Nom (Bld)CULTURE RESULTS NO GROWTH 5 DAYSNormCrystal Clinic Orthopedic CenterComment on above:Order Comment: *SIRS Criteria: (must [...] be affected.Performed By: #### BC ####[facility] ([facility])[address], [place] [address] VIR Bacteria identified Cx Nom (Bld)CULTURE RESULTS NO GROWTH 5 DAYSNormalProBaylor Scott & White Medical Center – GrapevineComment on above:Order Comment: *SIRS Criteria: (must display [...] be affected.Performed By: #### BC ####[facility] LABORATORY (TT)[address] [facility] [address], [place] [address] VIRC- REACTIVE PROTEINon 12-05-2024 REACTIVE MXMDAQE48.3 mg/dLHigh<=0.7Morrow County HospitalComment on above:Performed By: #### CRP ####[facility] ([facility])[address] [place], [place] [address]E.[place] [address] VIRCBC WITH AUTO DIFFERENTIALon [id number] ROSIE CELLS IN BLOOD BY LIGHT MICROSCOPY1+ NormalMorrow County HospitalComment on above:Result Comment: This is an appended report. These results have been appended to a previously preliminary verified report.Performed By: #### CBCA ####[facility] ([facility])[address] [place] [address] [id number] VIRCELLAVISION DIFFERENTIAL TYPEMANUAL DIFFERENTIALNormalMorrow County HospitalComment on above:Result Comment: This is an appended report. These results have been appended to a previously preliminary verified report.Performed By: #### CBCA ####[facility] ([address] [id number] VIRCELLAVISION HYPOCHROMIA IN BLOOD BY LIGHT MICROSCOPY1+[facility] Comment on above:Result Comment: This is an appended report. These results have been appended to a previously preliminary verified report.Performed By: #### CBCA ####[facility] ([facility])[address] [place] [address] VIRCELLAVISION LYMPHOCYTES ABSOLUTE COUNT (10*3/UL) BY MANUAL COUNT0.8 10*3/uLLow1.0-3.5PCincinnati VA Medical CenterComment on above:Result Comment: This is an appended report. These results have been appended to a previously prelimi nary verified report.Performed By: #### CBCA ####[facility] ([facility])[address] [place] [address] [id number] VIRCELLAVISION LYMPHOCYTES RELATIVE PERCENT BY MANUAL COUNT6 %NormalProBaylor Scott & White Medical Center – GrapevineComment on above:Result Comment: This is an appended report. These results have been appended to a previously preliminary verified report.Performed By: #### CBCA ####[facility] ([address] VIRCELLAVISION MONOCYTES ABSOLUTE COUNT (10*3/UL) IN BLOOD BY MANUAL COUNT0.8 10*3/uLNormal0.0-0.9Morrow County HospitalComment on above:Result Comment: This is an appended report. These results have been appended to a previously preliminary verified report.Performed By: #### CBCA ####[facility]ITAL[facility] ([facility])[address] [place] [address] [id number] VIRCELLAVISION MONOCYTES RELATIVE PERCENT BY MANUAL COUNT6 %NormalProBaylor Scott & White Medical Center – Grapevine Comment on above:Result Comment: This is an appended report. These results have been appended to a previously preliminary verified report.Performed By: #### CBCA ####[facility] ([facility])[address] [place] [address] VIRCELLAVISION NEUTROPHILS ABSOLUTE COUNT BY MANUAL COUNT12.2 10*3/uLHigh 1.5-6.6M[facility] County HospitalComascension standish hospital on above:Result Comment: This is an appended report. These results have been appended to a previously preliminary verified report.Performed By: #### CBCA ####[facility] ([facility])[address], [id number] VIRCELLAVISION NEUTROPHILS RELATIVE PERCENT BY MANUAL COUNT88 %NormalMorrow County HospitalComascension standish hospital on above: Result Comment: This is an appended report. These results have been appended to a previously preliminary verified report.Performed By: #### CBCA ####[facility] ([facility])[address], [id number] VIR CELLAVISION RBC FRAGMENTS1+NormalProBaylor Scott & White Medical Center – GrapevineComment on above: Result Comment: This is an appended report. These results have been appended to a previously preliminary verified report.Performed By: #### CBCA ####[facility] ([address], [id number] VIR Erythrocyte distribution width (RBC) [Ratio]20.6 %High11.5-15Morrow County HospitalComment on above:Performed By: #### CBCA ####[facility] ([address], [id number] VIRHematocrit (Bld) [Volume fraction]24.8 %Enl38-87TrlHtgsbsMorrow County HospitalComment on above:Performed By: #### CBCA ####[facility] ([address], [id number] VIRHemoglobin (Bld) [Mass/Vol]7.8 g/dLLow11.7-15.5ProMedica Queen Of The Valley Medical CenterComment on above:Performed By: #### CBCA ####[facility] ([address], [id number] VIRMCH (RBC) [Entitic mass]25.0 gfFgo03-19XonAlajfaBaylor Scott & White Medical Center – GrapevineComment on above:Performed By: #### CBCA ####[facility] ([address], [id number] VIRMCHC (RBC) [Mass/Vol]31.5 g/aLAdd90-56AxvGalgsbBaylor Scott & White Medical Center – GrapevineComment on above:Performed By: #### CBCA ####[facility] ([address], [id number] VIRMCV (RBC) [Entitic vol]79 wHVpy13-071JjqCmhvnbBaylor Scott & White Medical Center – GrapevineComment on above:Performed By: #### CBCA ####[facility] ([address], [id number] VIRPlatelet mean volume (Bld) [Entitic vol]6.5 fLLow7-12PCincinnati VA Medical CenterComment on above:Performed By: #### CBCA ####[facility] ([address], [id number] VIRPlatelets (Bld) [#/Vol]235 10*3/rOTmrthb532-823AenZqljjr Fremont HospitalComment on above:Performed By: #### CBCA ####[facility] ([address], [id number] VIRRBC COUNT3.13 X10E12/LLow3.8-5.2PCincinnati VA Medical CenterComment on above:Performed By: #### CBCA ####[facility] ([address], [id number] VIRWBC (Bld) [#/Vol]13.8 10*3/uLHigh4-11ProBaylor Scott & White Medical Center – GrapevineComment on above:Performed By: #### CBCA ####[facility] ([address] [place] [address] VIRCOMPREHENSIVE METABOLIC PANELon 14-04-7040Noioykb [Mass/Vol]3.4 g/dL Normal3.2-5.3PCincinnati VA Medical CenterComment on above:Performed By: #### CMP ####[facility] ([facility])[address], [place] [address] VIRALP [Catalytic activity/Vol]86 U/DOkcspr39-330ZytOnycucMorrow County Hospital Comment on above:Performed By: #### CMP ####[facility] ([facility])[address] [place] [address] VIRALT [Catalytic activity/Vol]14 U/L Normal<=31PCincinnati VA Medical CenterComment on above:Performed By: #### CMP ####[facility] ([facility])[address], [place] [address] VIRAnion gap [Moles/Vol]13 mmol/LNormal5-15[facility] Comment on above:Performed By: #### CMP ####[facility] ([place] [address] [place] [address] VIRAST [Catalytic activity/Vol]15 U/L Normal<=41ProBaylor Scott & White Medical Center – GrapevineComment on above:Performed By: #### CMP ####[facility] ([place] [address], [place] [address] VIRBilirubin [Mass/Vol]0.5 mg/dLNormal0.3-1.2PCincinnati VA Medical Center Comment on above:Performed By: #### CMP ####[facility] ([place] [address] [place] [address] VIRCalcium [Mass/Vol]8.9 mg/dLNormal 8.5-10.5PCincinnati VA Medical CenterComment on above:Performed By: #### CMP ####[facility] ([place] [address], [place] [address] VIRChloride [Moles/Vol]108 mmol/CWgyfsz73-869XrgEqzqewMorrow County Hospital Comment on above:Performed By: #### CMP ####[facility] ([place] [address] [place] [address] VIRCO2 [Moles/Vol]18 mmol/RJdc13-86 ProMMarina Del Rey HospitalComment on above:Performed By: #### CMP ####[facility] ([address] [place] [address] VIR Creatinine [Mass/Vol]1.20 mg/dLHigh0.40-1.00ProBaylor Scott & White Medical Center – GrapevineComment on above:Result Comment: METHOD TRACEABLE TO IDMS STANDARDPerformed By: #### CMP ####[facility] ([address] [address] VIRGFR/1.73 sq M.predicted among non-blacks MDRD (S/P/Bld) [Vol rate/Area] 50 mL/min/{1.73_m2}Low>=60ProBaylor Scott & White Medical Center – GrapevineComment on above:Result Comment: eGFR not reported due to non-numeric value for Creatinine.Reported eGFR is based ontheCKD-EPI 2020 equation that doesnot use a race coefficient. Performed By: #### CMP ####[facility] ([address] [address] VIRGlucose [Mass/Vol]123 mg/rCOhwg49-44UtxJegpypBaylor Scott & White Medical Center – GrapevineComment on above:Performed By: #### CMP ####[facility] ([address] [address] VIRPotassium [Moles/Vol]3.1 mmol/LLow3.5-5.0ProBaylor Scott & White Medical Center – GrapevineComment on above: Performed By: #### CMP ####[address] [address] VIRProtein [Mass/Vol]6.7 g/dLNormal6.0-8.0ProBaylor Scott & White Medical Center – GrapevineComment on above:Performed By: #### CMP ####[facility] ([address] [place] [address] VIRSodium [Moles/Vol]139 mmol/TTufqjn396-918MnyKfkqli Fremont HospitalComment on above: Performed By: #### CMP ####[facility] ([address] [place] [address] VIRUrea nitrogen [Mass/Vol]30 mg/dLHigh5-27Morrow County HospitalComment on above:Performed By: #### CMP ####[facility] ([address] [place] [address] VIRLACTATE W/ REFLEX on 98-70-7713TAVBKOT W/REFLEX1.1 mmol/LNormal0.4-2.0[facility] Comment on above:Order Comment: Result did not trigger repeat Lactate,re-order if needed.Performed By: #### LACTS ####[facility] ([address] [address] VIRMRSA PCR NASAL SWABon 12-05-2024 MRSA PCR NASAL SWABNegativeNormalNegativeProBaylor Scott & White Medical Center – GrapevineComment on above:Performed By: #### MRSPCR ####[facility] (TTH)[address] [facility] [address] [address] VIRPOTASSIUMon 05-49-5703Ohbjlxzml [Moles/Vol]3.4 mmol/LLow3.5-5.0Morrow County HospitalComment on above: Performed By: #### K ####[facility] ([address] [address] VIRXR FOOT LT MIN 3 VWSon 54-86-9958LY FOOT LT MIN 3 VWS NormalMorrow County HospitalXR HIPS BILAT W OR WO PELVIS 5+ VWSon 12-05-2024 XR HIPS BILAT W OR WO PELVIS 5+ VWSNormalMorrow County HospitalCB with Auto Differentialon 59-96-0631Wikngtpnk (Bld) [#/Vol]0.07 10*3/uLBon SecChildren's Hospital of ColumbusBasophils/100 WBC (Bld)1 %0 - 2 %[facility] [...] [Entitic mass]25.5 pg25.2 - 33.5 pgBon [facility]ours Mercy Healthy HealthMCHC (RBC) [Mass/Vol]31.2 g/dL 28.4 - 34.8 [...] HealthRBC (Bld) [#/Vol]3.41 10*6/uLLow3.95 - 5.11 m/uLBon [facility] Medical CenterSegmented neutrophils/100 WBC (Bld)8.08 %Bon [facility] Medical CenterWBC other (Bld) [#/Vol]10.9Bon [facility] Medical CenterBon [facility] Medical CenterCMPon 90-77-8961Oayqcww [Mass/Vol]3.5 g/dL3.5 - 5.2 g/dLBon [facility] Medical CenterAlbumin/Globulin [Mass ratio]1.6 {ratio}1.0 - 2.5Bon [facility] Medical CenterALP [Catalytic activity/Vol]68 U/L35 - 104 U/LBon [facility] HealthALT [Catalytic activity/Vol]8 U/LLow10 - 35 U/LBon [facility] Medical CenterAnion gap [Moles/Vol]11 mmol/L9 - 16 mmol/LBon [facility] HealthAST [Catalytic activity/Vol]11 U/L10 - 35 U/LBon [facility] Medical CenterBilirubin [Mass/Vol]mg/dL 0.00 - 1.20 mg/dLBon [facility] Medical CenterCalcium [Mass/Vol]8.6 mg/dL8.6 - 10.4 mg/dLBon [facility] Medical CenterChloride [Moles/Vol]110 mmol/LHigh98 - 107 mmol/L [facility] HospitalCO2 [Moles/Vol]18 mmol/LLow20 - 31 mmol/LBon [facility] Medical CenterCreatinine [Mass/Vol]0.7 mg/dL0.50 - 0.90 mg/dLBon [facility] Medical CenterEst, Glom Filt Rate89- PINFBon [facility] St[facility] Vincent Medical CenterComment on above: These results are not intended [...] secretion. Glucose [Mass/Vol]84 mg/dL74 - 99 mg/dLBon [facility] Vincent Medical CenterInterpretation and review of laboratory resultsAbnormalBon [facility] HealthPotassium [Moles/Vol]4.0 mmol/L3.7 - 5.3 mmol/LBon [facility] HealthProtein [Mass/Vol] 5.8 g/dLLow6.6 - 8.7 g/dLBon [facility] HealthSodium [Moles/Vol]139 mmol/L136 - 145 mmol/LBon [facility] Medical CenterUrea nitrogen [Mass/Vol]58 mg/dLHigh8 - 23 mg/dLBon [facility] Medical CenterUrea nitrogen/Creatinine [Mass ratio]83 mg/mgHigh9 - 20Bon [facility] Medical CenterBon [facility] HealthCT Pelvis WO contraston 85-40-2068Buqwaasx abnormal right hip is similar in appearance from the previous study. If there is strong clinical concern for pathologic fracture, nonemergent MRI should be considered.. [facility] RIS CONSOLIDATEDEXAMINATION: CT OF THE PELVIS WITHOUT [...] pathologic fracture, nonemergent MRI should be considered.. [facility] HospitalRadiology Study observation (narrative)[facility] HospitalCT Pelvis WO contrastOrdered By: Ramya Maico on 20-73-8824Knp [facility] Zextit Work Phone: Microscopic Urinalysison 76-63-1824Saqixncaos cells LM.HPF (Urine sed) [#/Area]0 TO 2Bon SecChildren's Hospital of ColumbusRBC LM.HPF (Urine sed) [#/Area]NoneBon [facility] Medical CenterWBC LM.HPF (Urine sed) [#/Area]0 TO [address] [facility] Medical CenterBon [facility] HealthProtime-INRon 06-38-6253NJG Coag (PPP) [Relative time]1.4 {INR}[facility] HospitalComment on above: Therapeutic Range: Moderate Anticoagulant Intensity: INR = 2.0-3.0 High Anticoagulant Intensity: INR = 2.5-3.5 Interpretation and review of laboratory resultsAbnormalSentara Leigh Hospital PT Coag (PPP) [Time]17.[address] [facility] Medical CenterBon [facility] Health Urinalysison 28-46-3342Hpwkreafi Ql (U)NegativeNEGATIVEBon [facility] CenterN[facility] Health Clarity (U)ClearClearBon [facility] HealthColor (U)YellowYellowSentara Leigh HospitalGlucose Test strip (U) [Mass/Vol]NegativeNEGATIVE mg/dLBon [facility] ZextitHemoglobin Auto test strip Ql (U)NegativeNEGATIVECarilion Roanoke Memorial Hospital HealthInterpretation and review of laboratory resultsAbnormalBon [facility] HealthKetones (U) [Mass/Vol]NegativeNEGATIVE mg/dLBon [facility] Leukocyte esterase Test strip Ql (U)NegativeNEGATIVEBon [facility] Health Nitrite Ql (U)NegativeNEGATIVEBon SecPointe Coupee [facility] Hospital HealthpH (U)6.0 [pH]5.0 - 9.0[facility] HealthProtein (U) [Mass/Vol]TRACEAbnormalNEGATIVE mg/dLBon SecMultiCare HealthVertical Point Solutions HealthSpecific gravity (U) [Rel density]1.0151.010 - 1.020Bon [facility] Medical CenterUrobilinogen Qn (U)Normal0.0 - 1.0 EU/dLBon [facility] Medical CenterBon [facility] Medical CenterXR Foot - left 3 Viewson . Osteopenia. 2. Small calcaneal spur. 3. Soft tissue swelling and ulceration at the plantar heel. [facility] CONSOLIDATEDEXAM: 3 or more VIEW(S) XRAY OF THE LEFT FOOT 11/19/2024 12:43:02 PM COMPARISON: 08/12/2024 CLINICAL HISTORY: r/o osteo. ORDERING SYSTEM PROVIDED HISTORY: r/o osteo; TECHNOLOGIST PROVIDED HISTORY: r/o osteo FINDINGS: BONES AND JOINTS: Osteopenia. Small calcaneal spur. No acute fracture. No joint dislocation. SOFT TISSUES: Soft tissue swelling and ulceration at the plantar heel. [facility] Nia Rouse MD - [...] swelling and ulceration at the plantar heel. [facility] HospitalRadiology Study observation (narrative)[facility] Foot - left 3 ViewsOrdered By: Nia Trejo on 57-83-0070Tkz [facility] Work Phone: XR Pelvis and Hip - bilateral Viewson . No acute osseous abnormality. If there is persistent clinical concern or difficulty weight-bearing CT can be obtained. 2. Severe degenerative changes to the right hip joint appears stable. 3. Stable degenerative changes to both SI joints and visualized lumbar spine. [facility] CONSOLIDATEDEXAMINATION: ONE X-RAY VIEW [...] Multiple surgical clips to bilateral inguinal regions. [facility] Diego Castellon MD - 11/19/2024 EXAMINATION: ONE [...] both SI joints and visualized lumbar spine. [facility] MeterHeroRadiology Study observation (narrative)[facility] MeterHeroXR Pelvis and Hip - bilateral ViewsOrdered By: Diego Odom on [id number] [employer] Work Phone: Basic Metabolic Panel w/ Reflex to MGon 08-17-2024 Anion gap [Moles/Vol]6 mmol/LLow9 - 16 mmol/LBon MeterHeroCalcium [Mass/Vol]8.7 mg/dL8.6 - 10.4 mg/dLBon OpenSynergy HealthChloride [Moles/Vol] 99 mmol/L98 - 107 mmol/LBon [facility]Sy[facility] HealthCO2 [Moles/Vol]32 mmol/LHigh20 - 31 mmol/LBon [facility] Medical CenterCreatinine [Mass/Vol]0.8 mg/dL0.50 - 0.90 mg/dLBon [facility] Medical CenterEstRadha Rate77- PINFBon [facility] Comment on above: These results are not [...] that affects renal tubular secretion. Glucose [Mass/Vol]117 mg/zJRqdb37 - 99 mg/dLBon [facility] Interpretation and review of laboratory resultsAbnormalBon [facility] Potassium [Moles/Vol]4.9 mmol/L3.7 - 5.3 mmol/LBon [facility] Medical CenterSodium [Moles/Vol]137 mmol/L136 - 145 mmol/LBon [facility] Medical CenterUrea nitrogen [Mass/Vol]15 mg/dL8 - 23 mg/dLBon [facility] Medical CenterUrea nitrogen/Creatinine [Mass ratio]19 mg/mg9 - 20Bon [facility] HospitalCBC auto differentialon [id number] (Bld) [#/Vol]0.09 10*3/uLBon [facility] Medical CenterBasophils/100 WBC (Bld)1 %0 - 2 %[facility] HospitalEosinophils (Bld) [#/Vol]0.36 10*3/uLBon [facility] Medical CenterEosinophils/100 WBC (Bld)5 % High1 - 4 %[facility] HospitalErythrocyte distribution width (RBC) [Ratio] 18.4 %High11.8 - 14.4 %[facility] HospitalHematocrit (Bld) [Volume fraction]33.4 %Low36.3 - 47.1 %[facility] HospitalHemoglobin (Bld) [Mass/Vol]9.7 g/dLLow11.9 - 15.1 g/dLBon Secours Mercy HealthImmature granulocytes (Bld) [#/Vol][facility] HealthImmature granulocytes/100 WBC (Bld)0 %0[facility] HealthInterpretation and review of laboratory results AbnormalBon Secours Mercy HealthLymphocytes/100 WBC (Bld)19 %Low24 - 43 %[facility] HealthLymphocytes/100 WBC (Bld)1.29 %[facility] AdministrationH (RBC) [Entitic mass]25.3 pg25.2 - 33.5 pgBon Secours Veterans Health AdministrationHC (RBC) [Mass/Vol]29 g/dL28.4 - 34.8 g/dLBon Secours Veterans Health AdministrationV (RBC) [Entitic vol] 87.2 fL82.6 - 102.9 fLBon Secours Merc HealthMonocytes/100 WBC (Bld)11 %3 - 12 %[facility] HealthMonocytes/100 WBC (Bld)0.74 %[facility] Neutrophils/100 WBC (Bld)64 %36 - 65 %[facility] Pomerene HospitalNucleated RBC/100 WBC (Bld) [Ratio]0 %0.0 per 100 WBCBon Secours Mercy Healthy HealthPlatelet mean volume (Bld) [Entitic vol]9.4 fL8.1 - 13.5 fLBon Secours [facility] HealthPlatelets (Bld) [#/Vol]385 10*3/uLBon [facility] HealthRBC (Bld) [#/Vol]3.83 10*6/uLLow3.95 - 5.11 m/uLOro Valley Hospital Secours Pomerene HospitalSegmented neutrophils/100 WBC (Bld)4.34 %[facility]ome[facility] HospitalWBC other (Bld) [#/Vol]6.8[facility] HealthO[facility] Hospital Secours [facility] Healthy HealthCulture, Blood 1on 61-07-2007Cejysrv comment (Unsp spec) [Interp]16ML LFABon Secours Mercy Healthy HealthCulture, Blood 2on 64-31-8337Tptrkps comment (Unsp spec) [Interp]2 ML RIGHT WRIST ONE BOTTLEBon SecChildren's Hospital of Columbus Laboratoryon [id number] identified Cx Nom (Unsp spec)NO GROWTH [address] [facility] Medical CenterNo Panel Informationon 24-66-4229Rwtkhmrx Description.BLOODBon [facility]man Memorial HospitalBasic Metabolic Panel w/ Reflex to MGon 01-18-5767Ugwsi gap [Moles/Vol]8 mmol/LLow9 - 16 mmol/L Bon [facility] Medical CenterCalcium [Mass/Vol]8.8 mg/dL8.6 - 10.4 mg/dLBon [facility] Medical CenterChloride [Moles/Vol]96 mmol/LLow98 - 107 mmol/LBon [facility] Medical CenterCO2 [Moles/Vol]31 mmol/L20 - 31 mmol/LBon [facility] Medical CenterCreatinine [Mass/Vol]0.8 mg/dL0.50 - 0.90 mg/dLBon [facility] HospitalVertical Point Solutions Providence HospitalEst, Glom Filt Rate 84- PINFBon [facility] Medical CenterComment on above: These results are not intended [...] that affects renal tubular secretion. Glucose [Mass/Vol]100 mg/uTKixl62 - 99 mg/dLBon [facility] Interpretation and review of laboratory resultsAbnormalBon [facility] Potassium [Moles/Vol]4.7 mmol/L3.7 - 5.3 mmol/LBon [facility] Medical CenterSodium [Moles/Vol]135 mmol/HJrm832 - 145 mmol/LBon [facility] Medical CenterUrea nitrogen [Mass/Vol]13 mg/dL8 - 23 mg/dLBon [facility] ZextitUrea nitrogen/Creatinine [Mass ratio]16 mg/mg9 - 20Bon [facility] HospitalCBC auto differentialon [id number] (Bld) [#/Vol]0.1 10*3/uLBon [facility] Medical CenterNova Specialty Hospitals Pomerene HospitalBasophils/100 WBC (Bld)1 %0 - 2 %[facility] Healthcarey HealthEosinophils (Bld) [#/Vol]0.36 10*3/uLBon [facility]ours Mercy HealthEosinophils/100 WBC (Bld)5 % High1 - 4 %[facility] HealthErythrocyte distribution width (RBC) [Ratio] 18.3 %High11.8 - 14.4 %[facility] HealthHematocrit (Bld) [Volume fraction]34.7 %Low36.3 - 47.1 %Bon [facility]Po[facility] HealthHemoglobin (Bld) [Mass/Vol]10.3 g/dLLow11.9 - 15.1 g/dLBon Secours Pomerene HospitalImmature granulocytes (Bld) [#/Vol][facility] HealthImmature granulocytes/100 WBC (Bld)0 %0[facility] HealthInterpretation and review of laboratory results AbnormalBon [facility] HealthLymphocytes/100 WBC (Bld)16 %Low24 - 43 %Bon [facility]Po[facility] HealthLymphocytes/100 WBC (Bld)1.1 %[facility] SecMcKitrick HospitalH (RBC) [Entitic mass]25.8 pg25.2 - 33.5 pgBon Secours Veterans Health AdministrationHC (RBC) [Mass/Vol]29.7 g/dL28.4 - 34.8 g/dLBon SecMcKitrick HospitalV (RBC) [Entitic vol]86.8 fL82.6 - 102.9 fLBon [facility] HealthMonocytes/100 WBC (Bld)11 %3 - 12 %[facility] SecPointe Coupee General Hospital HealthMonocytes/100 WBC (Bld)0.77 %[facility] SecChildren's Hospital of ColumbusNeutrophils/100 WBC (Bld)67 %High36 - 65 %[facility] SecChildren's Hospital of Columbus Nucleated RBC/100 WBC (Bld) [Ratio]0 %0.0 per 100 WBCSentara Leigh Hospital Platelet mean volume (Bld) [Entitic vol]8.9 fL8.1 - 13.5 fLBon Secours [facility] HealthPlatelets (Bld) [#/Vol]362 10*3/uLBon [facility] HealthRBC (Bld) [#/Vol]4 10*6/uL3.95 - 5.11 m/uLSentara Leigh HospitalSegmented neutrophils/100 WBC (Bld)4.58 %Bon [facility] Medical CenterWBC other (Bld) [#/Vol] 6.9Bon [facility] HospitalBasic Metabolic Panel w/ Reflex to MGon 03-29-9522Xtgxx gap [Moles/Vol]7 mmol/LLow9 - 16 mmol/LBon [facility] Medical CenterCalcium [Mass/Vol]8.7 mg/dL8.6 - 10.4 mg/dLBon [facility] [facility] CenterChloride [Moles/Vol]98 mmol/L98 - 107 mmol/LBon [facility] CenterCO2 [Moles/Vol]31 mmol/L20 - 31 mmol/LBon [facility] CenterCreatinine [Mass/Vol] 0.7 mg/dL0.50 - 0.90 mg/dLBon [facility] CenterEst, Glom Filt Rate- PINFBon [facility] CenterComment on above: These results are not intended [...] that affects renal tubular secretion. Glucose [Mass/Vol]104 mg/eMHuaw17 - 99 mg/dLBon [facility] Interpretation and review of laboratory resultsAbnormalBon [facility] Potassium [Moles/Vol]5 mmol/L3.7 - 5.3 mmol/LBon [facility] CenterSodium [Moles/Vol]136 mmol/L136 - 145 mmol/LBon [facility] CenterUrea nitrogen [Mass/Vol]12 mg/dL8 - 23 mg/dLBon [facility] CenterUrea nitrogen/Creatinine [Mass ratio]17 mg/mg9 - 20Bon [facility] HospitalCBC auto differentialon [id number] (Bld) [#/Vol]0.08 10*3/uLBon [facility] CenterBasophils/100 WBC (Bld)1 %0 - 2 %Bon Secchelsey [facility] HealthEosinophils (Bld) [#/Vol]0.44 10*3/uLBon [facility] HealthEosinophils/100 WBC (Bld)6 % High1 - 4 %Bon Secchelsey [facility] HealthErythrocyte distribution width (RBC) [Ratio] 18.6 %High11.8 - 14.4 %Bon Secchelsey [facility] HealthHematocrit (Bld) [Volume fraction]34.4 %Low36.3 - 47.1 %Bon Secchelsey [facility] HealthHemoglobin (Bld) [Mass/Vol]10.2 g/dLLow11.9 - 15.1 g/dLBon Secours Pomerene HospitalImmature granulocytes (Bld) [#/Vol][facility] HealthImmature granulocytes/100 WBC (Bld)0 %0Bon [facility] HealthInterpretation and review of laboratory results AbnormalBon SecMultiCare Healthy HealthLymphocytes/100 WBC (Bld)17 %Low24 - 43 %Bon Secchelsey [facility] HealthLymphocytes/100 WBC (Bld)1.19 %[facility] Secchelsey Pomerene HospitalMCH (RBC) [Entitic mass]26.2 pg25.2 - 33.5 pgBon SecMcKitrick HospitalHC (RBC) [Mass/Vol]29.7 g/dL28.4 - 34.8 g/dLBon SecChildren's Hospital of ColumbusMCV (RBC) [Entitic vol]88.2 fL82.6 - 102.9 fLOro [facility] Hospital Secchelsey [facility] HealthMonocytes/100 WBC (Bld)10 %3 - 12 %[facility] Sec[facility] HealthMonocytes/100 WBC (Bld)0.71 %[facility] Secchelsey [facility] HospitalNeutrophils/100 WBC (Bld)66 %High36 - 65 %[facility] SecPo[facility] Health Nucleated RBC/100 WBC (Bld) [Ratio]0 %0.0 per 100 WBCSentara Leigh Hospital Platelet mean volume (Bld) [Entitic vol]9.7 fL8.1 - 13.5 fLBon Secchelsey [facility] HealthPlatelets (Bld) [#/Vol]385 10*3/uLBon [facility] HealthRBC (Bld) [#/Vol]3.9 10*6/uLLow3.95 - 5.11 m/uLSentara Leigh HospitalSegmented neutrophils/100 WBC (Bld)4.78 %[facility] HospitalWBC other (Bld) [#/Vol] 7.2Bon [facility] Hospitaln and TIBCon 08-15-2024 Iron [Mass/Vol]15 ug/dLLow37 - 145 ug/dLBon [facility] Ohion binding capacity [Mass/Vol]270 ug/dL250 - 450 ug/dLBon [facility] Ohion saturation [Mass fraction]6 %Low20 - 55 %[facility] HospitalUIBC255 ug/dL 112 - 347 ug/dLBon [facility] CenterNo Panel Informationon 08-15-2024 Interpretation and review of laboratory resultsAbnormRussell County Medical CenterReticulocyteson [id number] reticulocytes/Total reticulocytes (Bld)23.4 %High2.7 - 18.3 %[facility] HospitalInterpretation and review of laboratory resultsAbnormCentra Lynchburg General HospitalRetic Hemoglobin 22.1 pgLow28.2 - 35.7 pgSentara Leigh HospitalReticulocytes (Bld) [#/Vol]0.108 10*3/uLHighSentara Leigh HospitalReticulocytes/100 RBC (Bld)2.8 %High0.5 - 1.9 %[facility] HospitalVitamin B12 & Folateon 62-60-3479Gvypveixf (Vitamin B12) [Mass/Vol]494 pg/mL232 - 1245 pg/mLSentara Leigh HospitalFolate [Mass/Vol]5.3 ng/mL4.8 - 24.2 ng/mLSentara Rmh Medical CenterVitamin D 25 Hydroxyon [id number]-qgqfjajygxdors D3 [Mass/Vol]19.8 ng/mLLow30.0 - 100.0 ng/mLSentara Leigh HospitalComment on above: Reference Range: Vitamin D status Range Deficiency <20 ng/mL Mild Deficiency 20-30 ng/mL Sufficiency 30-100 ng/mL Toxicity >100 ng/mL Basic Metabolic Panel w/ Reflex to MGon 61-37-1675Kggnz gap [Moles/Vol]9 mmol/L9 - 16 mmol/LBon Secours [...] HealthBon [facility] HealthCBC auto differential on [id number] (Bld) [#/Vol]0.06 10*3/uLBon [facility] Basophils/100 WBC (Bld)1 %0 - 2 %[facility] HealthEosinophils (Bld) [#/Vol]0.5 10*3/uLHighBon [facility] HealthEosinophils/100 WBC (Bld)6 %High1 - 4 %[facility] HealthErythrocyte distribution width (RBC) [Ratio]18.8 % High11.8 - 14.4 %[facility] HealthHematocrit (Bld) [Volume fraction]33.7 %Low36.3 - 47.1 %[facility] HealthHemoglobin (Bld) [Mass/Vol]10 g/dLLow 11.9 - 15.1 g/dLBon [facility] HealthImmature granulocytes (Bld) [#/Vol]0.03 10*3/uLBon [facility] HealthImmature granulocytes/100 WBC (Bld)0 %0[facility] HealthInterpretation and review of laboratory resultsAbnormalBon [facility] HealthLymphocytes/100 WBC (Bld)14 %Low24 - 43 %[facility] HealthLymphocytes/100 WBC (Bld)1.07 %LowBon SecMcKitrick HospitalH (RBC) [Entitic mass]25.7 pg25.2 - 33.5 pgBon [facility]ours Veterans Health AdministrationHC (RBC) [Mass/Vol] 29.7 g/dL28.4 - 34.8 g/dLBon [facility] Healthy Providence HospitalMCV (RBC) [Entitic vol]86.6 fL 82.6 - 102.9 fLBon [facility] HealthMonocytes/100 WBC (Bld)9 %3 - 12 %[facility] HealthMonocytes/100 WBC (Bld)0.7 %Bon [facility]Po[facility] Health Neutrophils/100 WBC (Bld)70 %High36 - 65 %[facility] HealthNucleated RBC/100 WBC (Bld) [Ratio]0 %0.0 per 100 WBCBon Secours [facility] Healthy HealthPlatelet mean volume (Bld) [Entitic vol]9.4 fL8.1 - 13.5 fLBon [facility]ours [facility] HealthPlatelets (Bld) [#/Vol]331 10*3/uLBon [facility] HealthRBC (Bld) [#/Vol]3.89 10*6/uLLow 3.95 - 5.11 m/uLBon [facility] Healthy HealthSegmented neutrophils/100 WBC (Bld)5.56 %[facility] HealthWBC other (Bld) [#/Vol]7.9[facility]omerene HospitalBon SecChildren's Hospital of ColumbusBasic Metab w/rfx MGon 78-92-1492Gbeka gap [Moles/Vol]11 mmol/LNormal9-16[facility]ble HospitalComment on above:Performed By: #### CMPX, CDP #### [facility] [address] [place] [address] Dr. [place], [place] [id number] Sdv Pilot/Navigator/Dds Operator: Apolinar Lemus MDBUN/CRE Rlwsh58Puttph0-46Xojtt [facility] Comment on above:Performed By: #### CMPX, CDP #### [address] [place] [address] Sdv Pilot/Navigator/Dds Operator: Apolinar Lemus MDCalcium [Mass/Vol]8.4 mg/dLLow8.6-10.4[facility]aut Medical CenterComment on above:Performed By: #### CMPX, CDP #### [address] [place] [address] Sdv Pilot/Navigator/Dds Operator: ANNITA Mckenziehloride [Moles/Vol]102 mmol/IQnyawl55-458HuixrUniversity Hospitals Conneaut Medical CenterComment on above:Performed By: #### CMPX, CDP #### [address] [place] [address] Sdv Pilot/Navigator/Dds Operator: Apolinar Leums MDCO2 [Moles/Vol]27 mmol/RForrty31-51Zkezp [facility] HospitalComment on above:Performed By: #### CMPX, CDP #### [facility] [address] [place] [address] [place] [address] Sdv Pilot/Navigator/Dds Operator: ANNITA Mckenziereatinine [Mass/Vol]0.7 mg/dLNormal0.50-0.90[facility] Conne[facility] Medical CenterComment on above:Performed By: #### CMPX, CDP #### [address] [place], [place] [id number] Sdv Pilot/Navigator/Dds Operator: Apolinar Lemus MDGFR/1.73 sq M.predicted among non-blacks MDRD (S/P/Bld) [Vol rate/Area]mL/min/{1.73_m2}Normal>60[facility] Medical CenterComment on above:Result Comment: These results [...] tubular secretion.Performed By: #### CMPX, CDP #### [address] [place] [address] Sdv Pilot/Navigator/Dds Operator: Apolinar Lemus MDGlucose [Mass/Vol]112 mg/uNFycx15-79ZfguyTrinity Health System Twin City Medical CenterComment on above:Performed By: #### CMPX, CDP #### [address] [place], [place] 1454883 Sdv Pilot/Navigator/Dds Operator: ROJAS Mckenzieotassium [Moles/Vol]3.6 mmol/LLow3.7-5.3MTrinity Health System Twin City Medical CenterComment on above:Performed By: #### CMPX, CDP #### [address] [place], [place] [id number] Sdv Pilot/Navigator/Dds Operator: ADÁN Mckenzieodium [Moles/Vol]140 mmol/DDxfdat091-505JgqvgUniversity Hospitals Conneaut Medical CenterComment on above:Performed By: #### CMPX, CDP #### [address] [place] [address] Sdv Pilot/Navigator/Dds Operator: Apolinar Lemus MDUrea nitrogen [Mass/Vol]12 mg/dLNormal8-23[facility] Medical CenterComment on above:Performed By: #### CMPX, CDP #### [address] [place] [address] Sdv Pilot/Navigator/Dds Operator: Apolinar Lemus MDConnecticut Valley Hospital Metabolic Panel w/ Reflex to MGon 08-13-2024 Anion gap [Moles/Vol]11 mmol/L9 - 16 mmol/LBon Secours View Inc.y HealthCalcium [Mass/Vol]8.4 mg/dLLow8.6 - 10.4 mg/dLBon [facility] HealthChloride [Moles/Vol]102 mmol/L98 - 107 mmol/LBon [facility] HealthCO2 [Moles/Vol]27 mmol/L20 - 31 mmol/LBon [facility] HealthCreatinine [Mass/Vol]0.7 mg/dL0.50 - 0.90 mg/dLBon [facility] HealthEst, Glom Filt Rate- PINFBon SecMultiCare HealthVertical Point Solutions Providence HospitalComment on above: These results are not [...] that affects renal tubular secretion. Glucose [Mass/Vol]112 mg/sWPrus36 - 99 mg/dLBon [facility] HospitalThe [facility] Group Interpretation and review of laboratory resultsAbnormalBon SecChildren's Hospital of Columbus Potassium [Moles/Vol]3.6 mmol/LLow3.7 - 5.3 mmol/LBon [facility] Healthy Providence HospitalSodium [Moles/Vol]140 mmol/L136 - 145 mmol/LBon SecMultiCare Healthy HealthUrea nitrogen [Mass/Vol]12 mg/dL8 - 23 mg/dLBon [facility] HealthUrea nitrogen/Creatinine [Mass ratio]17 mg/mg9 - 20[facility] HealthBon [facility]ours [facility] Healthy Providence HospitalCBC auto differentialon [id number] (Bld) [#/Vol]0.07 10*3/uLBon [facility] HealthBasophils/100 WBC (Bld)1 %0 - 2 %[facility] HealthEosinophils (Bld) [#/Vol]0.54 10*3/uLHighBon [facility]ours [facility] HealthEosinophils/100 WBC (Bld)6 %High1 - 4 %[facility] HealthErythrocyte distribution width (RBC) [Ratio]19.1 %High11.8 - 14.4 %[facility] HealthHematocrit (Bld) [Volume fraction]34.3 %Low36.3 - 47.1 %[facility] HealthHemoglobin (Bld) [Mass/Vol]10.1 g/dLLow11.9 - 15.1 g/dLBon [facility] HealthImmature granulocytes (Bld) [#/Vol]0.03 10*3/uLBon [facility] HealthImmature granulocytes/100 WBC (Bld)0 %0[facility] HealthInterpretation and review of laboratory resultsAbnormalBon [facility] HealthLymphocytes/100 WBC (Bld)18 %Low24 - 43 %[facility] HealthLymphocytes/100 WBC (Bld)1.55 %Bon SecMcKitrick HospitalH (RBC) [Entitic mass]25.4 pg25.2 - 33.5 pgBon Secours Veterans Health AdministrationHC (RBC) [Mass/Vol]29.4 g/dL28.4 - 34.8 g/dLBon Secours Pomerene HospitalMCV (RBC) [Entitic vol]86.4 fL82.6 - 102.9 fLBon [facility] HealthMonocytes/100 WBC (Bld)10 %3 - 12 %[facility] HealthMonocytes/100 WBC (Bld)0.85 %[facility] HealthNeutrophils/100 WBC (Bld)65 %36 - 65 %[facility] HealthNucleated RBC/100 WBC (Bld) [Ratio]0 %0.0 per 100 WBCBon Secours [facility] Healthy HealthPlatelet mean volume (Bld) [Entitic vol]9.1 fL8.1 - 13.5 fLBon [facility] Healthy HealthPlatelets (Bld) [#/Vol]305 10*3/uLBon [facility] Healthy HealthRBC (Bld) [#/Vol]3.97 10*6/uL3.95 - 5.11 m/uLBon [facility] Healthy Providence HospitalSegmented neutrophils/100 WBC (Bld)5.72 %[facility] HealthWBC other (Bld) [#/Vol] 8.8Bon [facility] CenterBon [facility] with Diffon 08-13-2024 Abs. Basophil0.07 k/uLNormal0.00-0.20[facility] HospitalComment on above: Performed By: #### CMPX, CDP #### [address] [place], [place] [address] Sdv Pilot/Navigator/Dds Operator: Cruz Mckenzie.Imm.Granulocyte0.03 k/uLNormal0.00-0.30[facility] HospitalComment on above:Performed By: #### CMPX, CDP #### [address] [place] [address] Sdv Pilot/Navigator/Dds Operator: Cruz Mckenzie.Neutrophil (Seg)5.72 k/uLNormal1.50-8.10[facility] HospitalComment on above:Performed By: #### CMPX, CDP #### [address] [place], [place] [address] Sdv Pilot/Navigator/Dds Operator: Apolinar Lemus MDBasophils/100 WBC (Bld)1 %Normal0-2MTwin City Hospital HospitalComment on above:Performed By: #### CMPX, CDP #### [address] [place], [place] [address] Sdv Pilot/Navigator/Dds Operator: JADEN Mckenzieosinophils (Bld) [#/Vol]0.54 10*3/uLHigh0.00-0.44 [facility] HospitalComment on above:Performed By: #### CMPX, CDP #### [address] [place], [place] [id number] Sdv Pilot/Navigator/Dds Operator: JADEN Mckenzieosinophils/100 WBC (Bld)6 %High1-4[facility] HospitalComment on above:Performed By: #### CMPX, CDP #### [address] [place], [place] [id number] Sdv Pilot/Navigator/Dds Operator: Apolinar Lemus MDErythrocyte distribution width (RBC) [Ratio]19.1 % High11.8-14.4[facility] Conneaut Medical CenterComment on above:Performed By: #### CMPX, CDP #### [address] [place], [place] [phone] Sdv Pilot/Navigator/Dds Operator: Apolinar Lemus MDHematocrit (Bld) [Volume fraction]34.3 %Low 36.3-47.1MTwin City Hospital HospitalComment on above:Performed By: #### CMPX, CDP #### [address] [place], [place] [id number] Sdv Pilot/Navigator/Dds Operator: Apolinar Lemus MDHemoglobin (Bld) [Mass/Vol]10.1 g/dLLow11.9-15.1 [facility] Medical CenterComment on above:Performed By: #### CMPX, CDP #### [address] [place], [place] [phone] Sdv Pilot/Navigator/Dds Operator: Apolinar Lemus MDImmature granulocytes/100 WBC (Bld)0 %Rpjupb6EjhixUniversity Hospitals Conneaut Medical CenterComment on above:Performed By: #### CMPX, CDP #### [address] [place], [facility]83 Sdv Pilot/Navigator/Dds Operator: Apolinar Lemus MDLymphocytes (Bld) [#/Vol]1.55 10*3/uLNormal 1.10-3.70[facility] Medical CenterComment on above:Performed By: #### CMPX, CDP #### [address] [place], [place] [id number] Sdv Pilot/Navigator/Dds Operator: Apolinar Lemus MDLymphocytes/100 WBC (Bld)18 %Ace88-17Prrfy [facility] HospitalComment on above:Performed By: #### CMPX, CDP #### [address] [place], [place] [id number] Sdv Pilot/Navigator/Dds Operator: BUZZ MckenzieCH (RBC) [Entitic mass]25.4 mfCikajl29.2-33.5 [facility] Medical CenterComment on above:Performed By: #### CMPX, CDP #### [address] [place], [place] 211[address]83 Sdv Pilot/Navigator/Dds Operator: BUZZ MckenzieCHC (RBC) [Mass/Vol]29.4 g/fRPgoydy28.4-34.8[facility] HospitalComment on above:Performed By: #### CMPX, CDP #### [address] [place], [place] 5447683 Sdv Pilot/Navigator/Dds Operator: BUZZ MckenzieCV (RBC) [Entitic vol]86.4 vLBkgexz51.6-102.9 [facility] HospitalComment on above:Performed By: #### CMPX, CDP #### [address] [place], [place] [id number] Sdv Pilot/Navigator/Dds Operator: BUZZ Mckenzieonocytes (Bld) [#/Vol]0.85 10*3/uLNormal0.10-1.20 [facility] Medical CenterComment on above:Performed By: #### CMPX, CDP #### [address] [place], [place] [id number] Sdv Pilot/Navigator/Dds Operator: BUZZ Mckenzieonocytes/100 WBC (Bld)10 %Normal3-12[facility] HospitalComment on above:Performed By: #### CMPX, CDP #### [address] [place], [place] 44[address]83 Sdv Pilot/Navigator/Dds Operator: Apolinar Lemus MDNeutrophil (Seg)65 %Qezfpr01-17Kxque [facility] HospitalComment on above:Performed By: #### CMPX, CDP #### [address] [place] [id number] Sdv Pilot/Navigator/Dds Operator: SVETLANA Mckenzie Automated0.0 per 100 WBCNormal0.0[facility] Medical CenterComment on above:Performed By: #### CMPX, CDP #### [address] [place] [address] Sdv Pilot/Navigator/Dds Operator: Nicanor Mckenzie mean volume (Bld) [Entitic vol]9.1 fL Normal8.1-13.5[facility] Medical CenterComment on above:Performed By: #### CMPX, CDP #### [address] [place] [address] Sdv Pilot/Navigator/Dds Operator: Corey Mckenzie (Bld) [#/Vol]305 10*3/qDAiwihu676-285 [facility] HospitalComment on above:Performed By: #### CMPX, CDP #### [address] [place], [facility]83 Sdv Pilot/Navigator/Dds Operator: GEOVANY Mckenzie (Bld) [#/Vol]3.97 10*6/uLNormal3.95-5.11[facility] Medical CenterComment on above:Performed By: #### CMPX, CDP #### [address] [place], [facility]83 Sdv Pilot/Navigator/Dds Operator: RAZA Mckenzie (Bld) [#/Vol]8.8 10*3/uLNormal3.5-11.3MTrinity Health System Twin City Medical CenterComment on above:Performed By: #### CMPX, CDP #### [address] [place], [place] 4101883 Sdv Pilot/Navigator/Dds Operator: Mihaela Mckenzie Metabolic Panelon 29-73-7040Spnxg gap [Moles/Vol]10 mmol/L9 - 16 mmol/LBon [facility] HealthCalcium [Mass/Vol]8.5 mg/dLLow8.6 - 10.4 mg/dLBon [facility] HealthChloride [Moles/Vol]100 mmol/L98 - 107 mmol/LBon [facility] HealthCO2 [Moles/Vol]28 mmol/L20 - 31 mmol/LBon [facility] CenterCreatinine [Mass/Vol]0.7 mg/dL0.50 - 0.90 mg/dLBon [facility] HealthEst, Glom Filt Rate- PINFBon [facility] CenterComment on above: These results are not intended [...] secretion. Glucose [Mass/Vol]89 mg/dL74 - 99 mg/dLBon [facility] CenterPotassium [Moles/Vol]3.7 mmol/L3.7 - 5.3 mmol/LBon [facility] Medical CenterSodium [Moles/Vol] 138 mmol/L136 - 145 mmol/LBon [facility] Medical CenterUrea nitrogen [Mass/Vol]8 mg/dL8 - 23 mg/dLBon [facility] CenterUrea nitrogen/Creatinine [Mass ratio]11 mg/mg9 - 20Bon [facility] CenterBasic Metabolic Profon 08-30-4573Ekxzl gap [Moles/Vol]10 mmol/LNormal9-16[facility] Medical CenterComment on above:Performed By: ###JOSE M GRAY #### [facility] [address] [place] [address] [place] [address] Sdv Pilot/Navigator/Dds Operator: Apolinar Lemus MDBUN/CRE Mntqz47Czknal8-78Hzbri [facility] Comment on above:Performed By: ###JOSE M GRAY #### [facility] [address] [place] [address] Sdv Pilot/Navigator/Dds Operator: ANNITA Mckenziealcium [Mass/Vol]8.5 mg/dLLow8.6-10.4[facility] Medical CenterComment on above:Performed By: #### GRACIE, UAX #### [address] [place], [place] 7102183 Sdv Pilot/Navigator/Dds Operator: ANNITA Mckenziehloride [Moles/Vol]100 mmol/CXujcti83-166LhhxlUniversity Hospitals Conneaut Medical CenterComment on above:Performed By: #### GRACIE, UAX #### [address] [place], [place] 3569783 Sdv Pilot/Navigator/Dds Operator: Apolinar Lemus MDCO2 [Moles/Vol]28 mmol/QWywnva12-51DdwibUniversity Hospitals Conneaut Medical CenterComment on above:Performed By: #### GRACIE UAX #### [address] [place], [place] 3853483 Sdv Pilot/Navigator/Dds Operator: ANNITA Mckenziereatinine [Mass/Vol]0.7 mg/dLNormal0.50-0.90[facility] CenterComment on above:Performed By: #### GRACIE, UAX #### [address] [place], [place] 6438183 Sdv Pilot/Navigator/Dds Operator: Apolinar Lemus MDGFR/1.73 sq M.predicted among non-blacks MDRD (S/P/Bld) [Vol rate/Area]mL/min/{1.73_m2}Normal>60[facility] Medical CenterComment on above:Result Comment: These results [...] tubular secretion.Performed By: #### GRACIE, UAX #### [address] [place], [place] 1032283 Sdv Pilot/Navigator/Dds Operator: Apolinar Lemus MDGlucose [Mass/Vol]89 mg/qKVvvxnk96-56Whcpp [facility] HospitalComment on above:Performed By: #### UMBENEDICTOO, UAX #### [facility] [address] [place] [address] Dr. [place], [place] 6337[address] Sdv Pilot/Navigator/Dds Operator: Apolinar Lemus MDPotassium [Moles/Vol]3.7 mmol/LNormal3.7-5.3MTwin City Hospital HospitalComment on above:Performed By: #### GRACIE, UAX #### [facility] [address] [place] [address] Dr. [place], [place] 467[address]83 Sdv Pilot/Navigator/Dds Operator: Apolinar Lemus MDSodium [Moles/Vol]138 mmol/TGpbfjs887-042IchmvUniversity Hospitals Conneaut Medical CenterComment on above:Performed By: #### GRACIE, UAX #### [address] [place], [place] 617[address]83 Sdv Pilot/Navigator/Dds Operator: Apolinar Lemus MDUrea nitrogen [Mass/Vol]8 mg/dLNormal8-23[facility] Medical CenterComment on above:Performed By: #### GRACIE, UAX #### [address] [place], [place] 1388583 Sdv Pilot/Navigator/Dds Operator: ANNITA Mckenzie-Reactive Proteinon [id number] High sensitivity method [Mass/Vol]21.5 mg/LHigh0.0 - 5.0 mg/LBon [facility] CRP [Mass/Vol]21.5 mg/LHigh0.0-5.0[facility] CenterComment on above: Performed By: #### GRACIE, UAX #### [address] [place] [address] Sdv Pilot/Navigator/Dds Operator: ANNITA MckenzieBC with Auto Differentialon [id number] (Bld) [#/Vol]0.06 10*3/uLBon [facility] Medical CenterBasophils/100 WBC (Bld)1 %0 - 2 %[facility] HospitalEosinophils (Bld) [#/Vol]0.48 10*3/uLHighBon Secours Pomerene HospitalEosinophils/100 WBC (Bld)6 %High1 - 4 %[facility] Erythrocyte distribution width (RBC) [Ratio]19.2 %High11.8 - 14.4 %Bon [facility] Medical CenterHematocrit (Bld) [Volume fraction]35.7 %Low36.3 - 47.1 %[facility] HospitalHemoglobin (Bld) [Mass/Vol]11.1 g/dLLow11.9 - 15.1 g/dLBon Secours Pomerene HospitalImmature granulocytes (Bld) [#/Vol][facility] HospitalImmature granulocytes/100 WBC (Bld)0 %0Bon [facility] CenterInterpretation and review of laboratory resultsAbnormalBon [facility] Medical CenterLymphocytes/100 WBC (Bld)16 %Low24 - 43 %[facility] HospitalLymphocytes/100 WBC (Bld)1.18 %[facility] MontgomeryH (RBC) [Entitic mass]26.1 pg25.2 - 33.5 pgBon J.W. Ruby Memorial HospitalHC (RBC) [Mass/Vol]31.1 g/dL28.4 - 34.8 g/dLBon SecChildren's Hospital of ColumbusMCV (RBC) [Entitic vol]84 fL82.6 - 102.9 fLBon [facility] HealthMonocytes/100 WBC (Bld)7 %3 - 12 %[facility] HospitalMonocytes/100 WBC (Bld)0.56 %[facility] HospitalNeutrophils/100 WBC (Bld)70 %High36 - 65 %[facility] Nucleated RBC/100 WBC (Bld) [Ratio]0 %0.0 per 100 WBCSentara Leigh Hospital Platelet mean volume (Bld) [Entitic vol]9.3 fL8.1 - 13.5 fLSentara Leigh HospitalPlatelets (Bld) [#/Vol]328 10*3/uLBon SecPointe Coupee General Hospital HealthRBC (Bld) [#/Vol]4.25 10*6/uL3.95 - 5.11 m/uLBon [facility] Medical CenterSegmented neutrophils/100 WBC (Bld)5.32 %Bon [facility] Medical CenterWBC other (Bld) [#/Vol] 7.6Bon [facility] CenterBon [facility] Medical CenterCB with Diffon 08-12-2024 Abs. Basophil0.06 k/uLNormal0.00-0.20[facility] HospitalComment on above: Performed By: #### TRAVIS, BMP, CDP #### [address] [place] [address] Sdv Pilot/Navigator/Dds Operator: MDAbs. MagalyImm.Granulocyte<0.80Qrernv0.00-0.30[facility] HospitalComment on above:Performed By: #### TRAVIS BMP, CDP #### [address] [place] [address] Sdv Pilot/Navigator/Dds Operator: MDAbs. MagalyNeutrophil (Seg)5.32 k/uLNormal1.50-8.10[facility] HospitalComment on above:Performed By: #### TRAVIS BMP, CDP #### [address] [place] [address] Sdv Pilot/Navigator/Dds Operator: Apolinar Lemus MDBasophils/100 WBC (Bld)1 %Normal0-2Mer[facility] Branch HospitalComment on above:Performed By: #### TRAVIS BMP, CDP #### [address] [place] [address] Sdv Pilot/Navigator/Dds Operator: Apolinar Lemus MDEosinophils (Bld) [#/Vol]0.48 10*3/uLHigh0.00-0.44 [facility] HospitalComment on above:Performed By: #### TRAVIS BMP, CDP #### [address] [place] [address] Sdv Pilot/Navigator/Dds Operator: JADEN Mckenzieosinophils/100 WBC (Bld)6 %High1-4[facility] HospitalComment on above:Performed By: #### TRAVIS, BMP, CDP #### [address] [place], [place] [address] Sdv Pilot/Navigator/Dds Operator: Apolinar Lemus MDErythrocyte distribution width (RBC) [Ratio]19.2 % High11.8-14.4[facility] HospitalComment on above:Performed By: #### CRP, BMP, CDP #### [address] [place], [place] [address] Sdv Pilot/Navigator/Dds Operator: Apolinar Lemus MDHematocrit (Bld) [Volume fraction]35.7 %Low 36.3-47.1MTwin City Hospital HospitalComment on above:Performed By: #### TRVAIS, BMP, CDP #### [address] [place] [address] Sdv Pilot/Navigator/Dds Operator: Apolinar Lemus MDHemoglobin (Bld) [Mass/Vol]11.1 g/dLLow11.9-15.1 [facility] HospitalComment on above:Performed By: #### TRAVIS BMP, CDP #### [address] [place], [place] [address] Sdv Pilot/Navigator/Dds Operator: Apolinar Lemus MDImmature granulocytes/100 WBC (Bld)0 %Eglfgi2Qigzg [facility]iffin HospitalComment on above:Performed By: #### TRAVIS, BMP, CDP #### [address] [place], [place] [address] Sdv Pilot/Navigator/Dds Operator: Apolinar Lemus MDLymphocytes (Bld) [#/Vol]1.18 10*3/uLNormal 1.10-3.70[facility] HospitalComment on above:Performed By: #### TRAVIS, BMP, CDP #### [address] [place] [id number] Sdv Pilot/Navigator/Dds Operator: Eden Mckenziemphocytes/100 WBC (Bld)16 %Mwf82-32Krnsa [facility]in HospitalComment on above:Performed By: #### TRAVIS, BMP, CDP #### [address] [place] [address] Sdv Pilot/Navigator/Dds Operator: BUZZ MckenzieCH (RBC) [Entitic mass]26.1 doBssgoc49.2-33.5 [facility] HospitalComment on above:Performed By: #### TRAVIS, BMP, CDP #### [address] [place] [address] Sdv Pilot/Navigator/Dds Operator: BUZZ MckenzieCHC (RBC) [Mass/Vol]31.1 g/xZZeewxm36.4-34.8[facility] Medical CenterComment on above:Performed By: #### TRAVIS BMP, CDP #### [address] [place] [address] Sdv Pilot/Navigator/Dds Operator: BUZZ MckenzieCV (RBC) [Entitic vol]84.0 bAPehnay94.6-102.9 [facility] Medical CenterComment on above:Performed By: #### TRAVIS BMP, CDP #### [address] [place] [address] Sdv Pilot/Navigator/Dds Operator: BUZZ Mckenzieonocytes (Bld) [#/Vol]0.56 10*3/uLNormal0.10-1.20 [facility] CenterComment on above:Performed By: #### TRAVIS, BMP, CDP #### [address] [place] [address] Sdv Pilot/Navigator/Dds Operator: BUZZ Mckenzieonocytes/100 WBC (Bld)7 %Normal3-12[facility] Medical CenterComment on above:Performed By: #### TRAVIS, BMP, CDP #### [address] [place], [place] [address] Sdv Pilot/Navigator/Dds Operator: Apolinar Lemus MDNeutrophil (Seg)70 %Tyml06-99HmtvwUniversity Hospitals Conneaut Medical Center Comment on above:Performed By: #### CRP, BMP, CDP #### [facility] [address] [place] [address] [place] [address] Sdv Pilot/Navigator/Dds Operator: SVETLANA Mckenzie Automated0.0 per 100 WBCNormal0.0[facility] Medical CenterComment on above:Performed By: #### CRP, BMP, CDP #### [address] [place] [address] Sdv Pilot/Navigator/Dds Operator: Nicanor Mckenzie mean volume (Bld) [Entitic vol]9.3 fL Normal8.1-13.5[facility] Medical CenterComment on above:Performed By: #### TRAVIS, BMP, CDP #### [address] [place] [address] Sdv Pilot/Navigator/Dds Operator: Corey Mckenzie (Bld) [#/Vol]328 10*3/dJRfohut292-407 [facility] CenterComment on above:Performed By: #### TRAVIS, KYLE, CDP #### [address] [place] [address] Sdv Pilot/Navigator/Dds Operator: GEOVANY Mckenzie (Bld) [#/Vol]4.25 10*6/uLNormal3.95-5.11[facility] CenterComment on above:Performed By: #### TRAVIS, BMP, CDP #### [address] [place] [address] Sdv Pilot/Navigator/Dds Operator: RAZA Mckenzie (Bld) [#/Vol]7.6 10*3/uLNormal3.5-11.3MTrinity Health System Twin City Medical CenterComment on above:Performed By: #### TRAVIS, BMP, CDP #### [address] [place] [address] Sdv Pilot/Navigator/Dds Operator: Marce Mckenzie [facility] Informationon [id number] and review of laboratory resultsAbFaulkton Area Medical CenterXR FOOT LEFT (MIN 3 VIEWS)on 70-86-7039XE FOOT LEFT (MIN 3 VIEWS) EXAMINATION: THREE [...] Signed by: Carlo Song MD 08/12/24 Final resultNoCorey HospitalXR FOOT RIGHT (2 VIEWS)on [id number] FOOT RIGHT (2 VIEWS)EXAMINATION: TWO XRAY VIEWS OF THE RIGHT FOOT 08/12/2024 11:24 am COMPARISON: None. HISTORY: ORDERING SYSTEM PROVIDED HISTORY: wound TECHNOLOGIST PROVIDED HISTORY: wound FINDINGS: No evidence of osteomyelitis or soft tissue gas. IMPRESSION: No osteomyelitis or soft tissue gas Interpreted by: Carlo Song MD Signed by: Carlo Song MD 08/12/24 Final resultNoAultman Orrville Hospital Foot - left 3 Viewson [id number] tissue wound at the tip of the [...] evidence of osteomyelitis or soft tissue gas [facility] HospitalRadiology Study observation (narrative)[facility] HospitalXR Foot - right 2 Viewson [id number] osteomyelitis or soft tissue gas [facility] CONSOLIDATEDEXAMINATION: TWO XRAY VIEWS OF THE RIGHT FOOT 08/12/2024 11:24 am COMPARISON: None. HISTORY: ORDERING SYSTEM PROVIDED HISTORY: wound TECHNOLOGIST PROVIDED HISTORY: wound FINDINGS: No evidence of osteomyelitis or soft tissue gas. [facility] Carlo Rios MD - 08/12/2024 EXAMINATION: TWO XRAY VIEWS OF THE RIGHT FOOT 08/12/2024 11:24 am COMPARISON: None. HISTORY: ORDERING SYSTEM PROVIDED HISTORY: wound TECHNOLOGIST PROVIDED HISTORY: wound FINDINGS: No evidence of osteomyelitis or soft tissue gas. IMPRESSION: No osteomyelitis or soft tissue gas [facility] Hospitaliology Study observation (narrative)[facility] Foot - right 2 ViewsOrdered By: Carlo Song on [id number] County Community Hospital Work Phone: Cult, Bloodon [id number], BloodSpecimen Description .BLOOD Special Requests RIGHT AC 20ML Culture NO GROWTH 5 DAYS Report Status FINAL 08/11/2024[facility]red Hospital DaytonComment on above: Performed By: #### CMPX, CDP #### [facility] [address] [place] [address] [place] [address] Sdv Pilot/Navigator/Dds Operator: Lavonne Mckenzie,Bloodon [id number],BloodSpecimen Description .BLOOD Special Requests Larm Culture NO GROWTH 5 DAYS Report Status FINAL 08/11/2024[facility] Hospital DaytonComment on above: Performed By: #### CMPX, CDP #### [facility] [address] [place] [address] [place] [address] Sdv Pilot/Navigator/Dds Operator: Mihaela Mckenzie Metab w/rfx MGon [id number] gap [Moles/Vol]8 mmol/LLow9-16[facility] Medical CenterComment on above:Performed By: #### BMPX, CDP #### [address] [place] [address] Sdv Pilot/Navigator/Dds Operator: Apolinar Lemus MDBUN/CRE Mgxbk12Beiblp3-06Mablt [facility] Comment on above:Performed By: #### BMPX, CDP #### [address] [place] [address] Sdv Pilot/Navigator/Dds Operator: ANNITA Mckenziealcium [Mass/Vol]8.2 mg/dLLow8.6-10.4MerSt. Vincent's Medical CenterComment on above:Performed By: #### BMPX, CDP #### [address] [place] [address] Sdv Pilot/Navigator/Dds Operator: ANNITA Mckenziehloride [Moles/Vol]109 mmol/IOeci50-411Rsdji [facility] HospitalComment on above:Performed By: #### BMPX, CDP #### [address] [place] [address] Sdv Pilot/Navigator/Dds Operator: Apolinar Lemus MDCO2 [Moles/Vol]26 mmol/QSxrdmo88-76Kixpv [facility] HospitalComment on above:Performed By: #### BMPX, CDP #### [address] [place] [address] Sdv Pilot/Navigator/Dds Operator: ANNITA Mckenziereatinine [Mass/Vol]0.6 mg/dLNormal0.50-0.90[facility] Medical CenterComment on above:Performed By: #### BMPX, CDP #### [address] [place], [place] [id number] Sdv Pilot/Navigator/Dds Operator: TOM Mckenzie/1.73 sq M.predicted among non-blacks MDRD (S/P/Bld) [Vol rate/Area]mL/min/{1.73_m2}Normal>60[facility] Medical CenterComment on above:Result Comment: These results [...] tubular secretion.Performed By: #### BMPX, CDP #### [address] [place] [address] Sdv Pilot/Navigator/Dds Operator: Apolinar Lemus MDGlucose [Mass/Vol]96 mg/lVHpyaui11-91CttqhTrinity Health System Twin City Medical CenterComment on above:Performed By: #### BMPX, CDP #### [address] Rodriguez, [facility]83 Sdv Pilot/Navigator/Dds Operator: ROJAS Mckenzieotassium [Moles/Vol]3.6 mmol/LLow3.7-5.3MTrinity Health System Twin City Medical CenterComment on above:Performed By: #### BMPX, CDP #### [address] [place], [facility]83 Sdv Pilot/Navigator/Dds Operator: ADÁN Mckenzieodium [Moles/Vol]143 mmol/FQqtlkp558-526NpgjhUniversity Hospitals Conneaut Medical CenterComment on above:Performed By: #### BMPX, CDP #### [address] [place], [facility]83 Sdv Pilot/Navigator/Dds Operator: Apolinar Lemus MDUrea nitrogen [Mass/Vol]9 mg/dLNormal8-23[facility] Medical CenterComment on above:Performed By: #### BMPX, CDP #### [address] [place] [address] Sdv Pilot/Navigator/Dds Operator: Apolinar Lemus MDConnecticut [facility] Hospital Metabolic Panel w/ Reflex to MGon 08-10-2024 Anion gap [Moles/Vol]8 mmol/LLow9 - 16 mmol/LBon SecMultiCare HealthVertical Point Solutions HealthCalcium [Mass/Vol]8.2 mg/dLLow8.6 - 10.4 mg/dLBon SecMultiCare HealthVertical Point Solutions HealthChloride [Moles/Vol]109 mmol/LHigh98 - 107 mmol/LBon SecPo[facility] HealthCO2 [Moles/Vol] 26 mmol/L20 - 31 mmol/LBon SecChildren's Hospital of ColumbusCreatinine [Mass/Vol]0.6 mg/dL 0.50 - 0.90 mg/dLBon Secours Mercy HealthVertical Point Solutions HealthEst, Glom Filt Rate- PINFBon [facility] HospitalVertical Point Solutions Providence HospitalComment on above: These results are not [...] secretion. Glucose [Mass/Vol]96 mg/dL74 - 99 mg/dLBon [facility] CenterNova Specialty Hospitals Mercy HealthThe Halo GroupInterpretation and review of laboratory resultsAbnormalBon [facility] HospitalVertical Point Solutions Providence HospitalPotassium [Moles/Vol]3.6 mmol/LLow3.7 - 5.3 mmol/LBon SecMultiCare HealthVertical Point Solutions Providence HospitalSodium [Moles/Vol]143 mmol/L136 - 145 mmol/LBon [facility] ZextitUrea nitrogen [Mass/Vol]9 mg/dL8 - 23 mg/dLBon [facility] Medical CenterUrea nitrogen/Creatinine [Mass ratio]15 mg/mg9 - 20Bon SecPo[facility] Hospital HealthBon SecChildren's Hospital of ColumbusCBC auto differentialon [id number] (Bld) [#/Vol]0.04 10*3/uLBon [facility] CenterNova Specialty Hospitals Mercy HealthThe Halo GroupErythrocyte distribution width (RBC) [Ratio]20 %High11.8 - 14.4 %Bon [facility] Medical CenterImmature granulocytes (Bld) [#/Vol][facility] Interpretation and review of laboratory resultsAbnormalSentara Leigh Hospital Lymphocytes/100 WBC (Bld)1.02 %LowBon [facility] Medical CenterMonocytes/100 WBC (Bld)0.58 %[facility] HospitalNeutrophils/100 WBC (Bld)66 %High36 - 65 %[facility] HospitalNucleated RBC/100 WBC (Bld) [Ratio]0 %0.0 per 100 WBCSentara Leigh HospitalSegmented neutrophils/100 WBC (Bld)4.4 %[facility] HospitalWBC other (Bld) [#/Vol]6.6Bon SecChildren's Hospital of ColumbusBon [facility] CBC with Diffon [id number]. Basophil0.04 k/uLNormal0.00-0.20[facility] Medical CenterComment on above:Performed By: #### BMPX, CDP #### [address] [place] [id number] Sdv Pilot/Navigator/Dds Operator: Cruz Mckenzie.Imm.Granulocyte<0.47Yfksch3.00-0.30[facility] Medical CenterComment on above:Performed By: #### BMPX, CDP #### [address] [place] [address] Sdv Pilot/Navigator/Dds Operator: Cruz Mckenzie.Neutrophil (Seg)4.40 k/uLNormal1.50-8.10[facility] Medical CenterComment on above:Performed By: #### BMPX, CDP #### [address] [place], [place] [address] Sdv Pilot/Navigator/Dds Operator: Apolinar Lemus MDBasophils/100 WBC (Bld)1 %Normal0-2Bon [facility] Medical CenterComment on above:Performed By: #### BMPX, CDP #### [address] [place] [id number] Sdv Pilot/Navigator/Dds Operator: Apolinar Lemus MDEosinophils (Bld) [#/Vol]0.49 10*3/uLHigh0.00-0.44 [facility] HospitalComment on above:Performed By: #### BMPX, CDP #### [address] [place] [address] Sdv Pilot/Navigator/Dds Operator: Apolinar Lemus MDEosinophils/100 WBC (Bld)8 %High1-4Bon [facility] on above:Performed By: #### BMPX, CDP #### [address] [place], [place] [address] Sdv Pilot/Navigator/Dds Operator: Apolinar Lemus MDErythrocyte distribution width (RBC) [Ratio]20.0 % High11.8-14.4[facility] on above:Performed By: #### BMPX, CDP #### [address] [place] [address] Sdv Pilot/Navigator/Dds Operator: Apolinar Lemus MDHematocrit (Bld) [Volume fraction]31.9 %Low 36.3-47.1Bon [facility] on above:Performed By: #### BMPX, CDP #### [address] [place], [place] [address]83 Sdv Pilot/Navigator/Dds Operator: Apolinar Lemus MDHemoglobin (Bld) [Mass/Vol]9.3 g/dLLow11.9-15.1Bon [facility] on above:Performed By: #### BMPX, CDP #### [address] Rodriguez, [facility]83 Sdv Pilot/Navigator/Dds Operator: Apolinar Lemus MDImmature granulocytes/100 WBC (Bld)0 %Tfibpd6Mqz [facility] on above:Performed By: #### BMPX, CDP #### [address] [place], [place] [id number] Sdv Pilot/Navigator/Dds Operator: Apolinar Lemus MDLymphocytes (Bld) [#/Vol]1.02 10*3/uLLow1.10-3.70 [facility] on above:Performed By: #### BMPX, CDP #### [address] [place] [address] Sdv Pilot/Navigator/Dds Operator: Apolinar Lemus MDLymphocytes/100 WBC (Bld)16 %Fkz76-52Sbv [facility] on above:Performed By: #### BMPX, CDP #### [address] [place], [facility]83 Sdv Pilot/Navigator/Dds Operator: BUZZ MckenzieCH (RBC) [Entitic mass]25.7 utTrvvpb46.2-33.5Bon [facility] on above:Performed By: #### BMPX, CDP #### [address] [place] [address] Sdv Pilot/Navigator/Dds Operator: ELLA MckenzieC (RBC) [Mass/Vol]29.2 g/iWFvpwmm99.4-34.8Bon [facility] on above:Performed By: #### BMPX, CDP #### [address] [place] [address] Sdv Pilot/Navigator/Dds Operator: BUZZ MckenzieCV (RBC) [Entitic vol]88.1 gFFdhnlm47.6-102.9Bon [facility] on above:Performed By: #### BMPX, CDP #### [address] [place] [address] Sdv Pilot/Navigator/Dds Operator: BUZZ Mckenzieonocytes (Bld) [#/Vol]0.58 10*3/uLNormal0.10-1.20 [facility] on above:Performed By: #### BMPX, CDP #### [address] [place], [place] [address]83 Sdv Pilot/Navigator/Dds Operator: BUZZ Mckenzieonocytes/100 WBC (Bld)9 %Normal3-12Bon [facility] on above:Performed By: #### BMPX, CDP #### [facility] [address] [place] [address] Sdv Pilot/Navigator/Dds Operator: Brennen Mckenzie (Seg)66 %Zsjv15-99TqbweUniversity Hospitals Conneaut Medical Center Comment on above:Performed By: #### BMPX, CDP #### [facility] [address] [place], [place] [address]83 Sdv Pilot/Navigator/Dds Operator: SVETLANA Mckenzie Automated0.0 per 100 WBCNormal0.0[facility] Medical CenterComment on above:Performed By: #### BMPX, CDP #### [address] [place], [place] [address]83 Sdv Pilot/Navigator/Dds Operator: Nicanor Mckenzie mean volume (Bld) [Entitic vol]9.2 fL Normal8.1-13.5Bon [facility] Medical CenterComment on above:Performed By: #### BMPX, CDP #### [address] [place] [address] Sdv Pilot/Navigator/Dds Operator: Corey Mckenzie (Bld) [#/Vol]258 10*3/xXFljbbz483-418Thb [facility] CenterComascension standish hospital on above:Performed By: #### BMPX, CDP #### [address] [place] [address] Sdv Pilot/Navigator/Dds Operator: GEOVANY Mckenzie (Bld) [#/Vol]3.62 10*6/uLLow3.95-5.11Bon [facility] on above:Performed By: #### BMPX, CDP #### [address] [place] [address] Sdv Pilot/Navigator/Dds Operator: RAZA Mckenzie (Bld) [#/Vol]6.6 10*3/uLNormal3.5-11.3MercRockville General HospitalComascension standish hospital on above:Performed By: #### BMPX, CDP #### [address] [place] [address] Sdv Pilot/Navigator/Dds Operator: Mihaela Mckenzie Metab w/rfx MGon 03-99-7227Ylmgf gap [Moles/Vol]9 mmol/LNormal9-16MerOhioHealth HospitalComment on above:Performed By: #### CMPX, CDP #### [address] [place], [place] [address]83 Sdv Pilot/Navigator/Dds Operator: Apolinar Lemus MDBUN/CRE Ufztc47Bhxprv5-84Whegc [facility] Comment on above:Performed By: #### CMPX, CDP #### [address] [place] [address] Sdv Pilot/Navigator/Dds Operator: ANNITA Mckenziealcium [Mass/Vol]8.0 mg/dLLow8.6-10.4MerOhioHealth HospitalComment on above:Performed By: #### CMPX, CDP #### [address] [place] [address] Sdv Pilot/Navigator/Dds Operator: ANNITA Mckenziehloride [Moles/Vol]110 mmol/SPqii37-324Hpitt [facility] HospitalComment on above:Performed By: #### CMPX, CDP #### [address] [place] [address] Sdv Pilot/Navigator/Dds Operator: Apolinar Lemus MDCO2 [Moles/Vol]23 mmol/VGzngpc04-34Lrjxw [facility] HospitalComment on above:Performed By: #### CMPX, CDP #### [address] [place], [place] [address]83 Sdv Pilot/Navigator/Dds Operator: Apolinar Lemus MDCreatinine [Mass/Vol]0.6 mg/dLNormal0.50-0.90MerOhioHealth HospitalComment on above:Performed By: #### CMPX, CDP #### [address] [place] [address] Sdv Pilot/Navigator/Dds Operator: Apolinar Lemus MDGFR/1.73 sq M.predicted among non-blacks MDRD (S/P/Bld) [Vol rate/Area]mL/min/{1.73_m2}Normal>60[facility] Medical CenterComment on above:Result Comment: These results [...] tubular secretion.Performed By: #### CMPX, CDP #### [address] [place] [address] Sdv Pilot/Navigator/Dds Operator: Apolinar Lemsu MDGlucose [Mass/Vol]103 mg/wAUeij25-31Ddbei [facility] HospitalComment on above:Performed By: #### CMPX, CDP #### [address] [place], [facility]83 Sdv Pilot/Navigator/Dds Operator: ROJAS Mckenzieotassium [Moles/Vol]3.6 mmol/LLow3.7-5.3Muniversity hospitals cleveland medical centery Bridgeport HospitalComment on above:Performed By: #### CMPX, CDP #### [address] [place], [facility]83 Sdv Pilot/Navigator/Dds Operator: ADÁN Mckenzieodium [Moles/Vol]142 mmol/MWiovrl374-064InrfgUniversity Hospitals Conneaut Medical CenterComment on above:Performed By: #### CMPX, CDP #### [address] [place] [address] Sdv Pilot/Navigator/Dds Operator: Apolinar Lemus MDUrea nitrogen [Mass/Vol]8 mg/dLNormal8-23[facility] Medical CenterComment on above:Performed By: #### CMPX, CDP #### [address] [place] [address] Sdv Pilot/Navigator/Dds Operator: Apolinar Lemus MDConnecticut Valley Hospital Metabolic Panel w/ Reflex to MGon 08-09-2024 Anion gap [Moles/Vol]9 mmol/L9 - 16 mmol/LBon [facility] [employer]ew[employer] HealthCalcium [Mass/Vol]8 mg/dLLow8.6 - 10.4 mg/dLBon [facility] [employer]ew[employer] HealthChloride [Moles/Vol] 110 mmol/LHigh98 - 107 mmol/LBon [facility] [employer] HealthCO2 [Moles/Vol]23 mmol/L20 - 31 mmol/LBon [facility] [employer] Providence HospitalCreatinine [Mass/Vol]0.6 mg/dL0.50 - 0.90 mg/dLBon [facility] SennariEst, Glom Filt Rate- PINFBon [facility] HospitalVertical Point Solutions [facility] Comment on above: These results are [...] that affects renal tubular secretion. Glucose [Mass/Vol]103 mg/wARutx64 - 99 mg/dLBon [facility] Medical CenterReverse MedicalPotassium [Moles/Vol]3.6 mmol/LLow3.7 - 5.3 mmol/LBon [facility] [employer]ew[employer] Providence HospitalSodium [Moles/Vol]142 mmol/L136 - 145 mmol/LBon [facility] [employer] ZextitUrea nitrogen [Mass/Vol]8 mg/dL8 - 23 mg/dLBon [facility] [employer] ZextitUrea nitrogen/Creatinine [Mass ratio]13 mg/mg9 - 20Bon [facility] CenterCBC auto differentialon [id number] (Bld) [#/Vol][facility] MeterHeroErythrocyte distribution width (RBC) [Ratio]20 %High11.8 - 14.4 %[facility] Sennari Hemoglobin (Bld) [Mass/Vol]9 g/dLLow11.9 - 15.1 g/dLBon [facility] Medical CenterReverse Medical Immature granulocytes (Bld) [#/Vol][facility] Medical CenterReverse MedicalInterpretation and review of laboratory resultsAbnormalBon [facility] Medical CenterLymphocytes/100 WBC (Bld)0.77 %LowBon [facility] Medical CenterMonocytes/100 WBC (Bld)0.62 %[facility] HospitalNeutrophils/100 WBC (Bld)74 %High36 - 65 %[facility] Nucleated RBC/100 WBC (Bld) [Ratio]0 %0.0 per 100 WBCSentara Leigh Hospital Segmented neutrophils/100 WBC (Bld)5.1 %[facility] HospitalWBC other (Bld) [#/Vol]6.9[facility]omerene HospitalBon [facility] CenterCBC with Diffon 71-29-6907Mrrrkdnsi/100 WBC (Bld)0 %Normal0-2Bon [facility] Medical CenterComment on above:Performed By: #### CMPX, CDP #### [address] [place] [address] Sdv Pilot/Navigator/Dds Operator: JADEN Mckenzieosinophils (Bld) [#/Vol]0.41 10*3/uLNormal 0.00-0.44Bon [facility] on above:Performed By: #### CMPX, CDP #### [address] [place] [address] Sdv Pilot/Navigator/Dds Operator: JADEN Mckenzieosinophils/100 WBC (Bld)6 %High1-4Bon [facility] on above:Performed By: #### CMPX, CDP #### [address] [place] [address] Sdv Pilot/Navigator/Dds Operator: Apolinar Lemus MDHematocrit (Bld) [Volume fraction]29.7 %Low 36.3-47.1Bon [facility] on above:Performed By: #### CMPX, CDP #### [address] [place] [address] Sdv Pilot/Navigator/Dds Operator: Apolinar Sturtz, MDImmature granulocytes/100 WBC (Bld)0 %Bmcive3Uws [facility] on above:Performed By: #### CMPX, CDP #### [address] [place], [place] [address] Sdv Pilot/Navigator/Dds Operator: Apolinar Lemus MDLymphocytes/100 WBC (Bld)11 %Qjg30-59Ruc [facility] on above:Performed By: #### CMPX, CDP #### [address] [place], [place] 3108983 Sdv Pilot/Navigator/Dds Operator: BUZZ MckenzieCH (RBC) [Entitic mass]26.5 nwOwiyxh64.2-33.5Bon [facility] on above:Performed By: #### CMPX, CDP #### [address] [place] [address] Sdv Pilot/Navigator/Dds Operator: ELLA MckenzieC (RBC) [Mass/Vol]30.3 g/xPXsqcbj07.4-34.8Bon [facility] on above:Performed By: #### CMPX, CDP #### [address] [place], [place] [address]283 Sdv Pilot/Navigator/Dds Operator: BUZZ MckenzieCV (RBC) [Entitic vol]87.6 hCTkuurd15.6-102.9Bon [facility] on above:Performed By: #### CMPX, CDP #### [address] [place], [place] [id number] Sdv Pilot/Navigator/Dds Operator: BUZZ Mckenzieonocytes/100 WBC (Bld)9 %Normal3-12Bon [facility] on above:Performed By: #### CMPX, CDP #### [address] [place] [address] Sdv Pilot/Navigator/Dds Operator: ROJAS Mckenzielatelet mean volume (Bld) [Entitic vol]9.2 fL Normal8.1-13.5Bon [facility] Medical CenterComment on above:Performed By: #### CMPX, CDP #### [address] [place], [facility]83 Sdv Pilot/Navigator/Dds Operator: Corey Mckenzie ([facility]) [#/Vol]252 10*3/mFUhhsal503-083Byz [facility] CenterComasc[facility] on above:Performed By: #### CMPX, CDP #### [address] [place], [facility]83 Sdv Pilot/Navigator/Dds Operator: GEOVANY Mckenzie ([facility]) [#/Vol]3.39 10*6/uLLow3.95-5.11Bon [facility] on above:Performed By: #### CMPX, CDP #### [address] [place], [place] [address] Sdv Pilot/Navigator/Dds Operator: Cruz Mckenzie. Basophil<0.36Tbeflg8.00-0.20MerOhioHealth HospitalComment on above:Performed By: #### CMPX, CDP #### [address] [place] [address] Sdv Pilot/Navigator/Dds Operator: MDAbs. MagalyImm.Granulocyte<0.90Hpaqab6.00-0.30MerSt. Vincent's Medical CenterComment on above:Performed By: #### CMPX, CDP #### [address] [place], [facility]83 Sdv Pilot/Navigator/Dds Operator: Cruz Mckenzie.Neutrophil (Seg)5.10 k/uLNormal1.50-8.10MerOhioHealth HospitalComment on above:Performed By: #### CMPX, CDP #### [address] [place], [place] [id number] Sdv Pilot/Navigator/Dds Operator: Apolinar Lemus MDErythrocyte distribution width (RBC) [Ratio]20.0 % High11.8-14.4[facility] CenterComment on above:Performed By: #### CMPX, CDP #### [facility] [address] [place] [address] [place] [address] Sdv Pilot/Navigator/Dds Operator: Apolinar Lemus MDHemoglobin (Bld) [Mass/Vol]9.0 g/dLLow11.9-15.1 [facility] CenterComment on above:Performed By: #### CMPX, CDP #### [facility] [address] [place] [address] [place] [address] Sdv Pilot/Navigator/Dds Operator: Apolinar Lemus MDLymphocytes (Bld) [#/Vol]0.77 10*3/uLLow1.10-3.70 [facility] CenterComment on above:Performed By: #### CMPX, CDP #### [address] [place], [place] [id number] Sdv Pilot/Navigator/Dds Operator: BUZZ Mckenzieonocytes (Bld) [#/Vol]0.62 10*3/uLNormal0.10-1.20 [facility] CenterComment on above:Performed By: #### CMPX, CDP #### [address] [place] [address] Sdv Pilot/Navigator/Dds Operator: Apolinar Lemus MDNeutrophil (Seg)74 %Itwh75-55FxgmzUniversity Hospitals Conneaut Medical Center Comment on above:Performed By: #### CMPX, CDP #### [facility] [address] [place] [address] Dr. [place], [place] [id number] Sdv Pilot/Navigator/Dds Operator: Apolinar Lemus MDNRBC Automated0.0 per 100 WBCNormal0.0[facility] Medical CenterComment on above:Performed By: #### CMPX, CDP #### [address] [place], [place] [id number] Sdv Pilot/Navigator/Dds Operator: Apolinar Lemus MDWBC (Bld) [#/Vol]6.9 10*3/uLNormal3.5-11.3MTrinity Health System Twin City Medical CenterComment on above:Performed By: #### CMPX, CDP #### [facility] [address] [place] [address] Sdv Pilot/Navigator/Dds Operator: Apolinar Lemus MDHepatic Function Panelon [id number] [Mass/Vol]3.1 g/dLLow3.5 - 5.2 g/dLBon [facility] CenterAlbumin/Globulin [Mass ratio]1.3 {ratio}1.0 - 2.5Bon [facility] Medical CenterALP [Catalytic activity/Vol]74 U/L35 - 104 U/LBon [facility] HealthALT [Catalytic activity/Vol]9 U/LLow10 - 35 U/LBon [facility] HealthAST [Catalytic activity/Vol]16 U/L10 - 35 U/LBon [facility] HealthBilirubin [Mass/Vol]mg/dL 0.00 - 1.20 mg/dLBon [facility] Medical CenterBilirubin.direct [Mass/Vol]mg/dL0.00 - 0.30 mg/dLBon [facility] Medical CenterBilirubin.indirect [Mass/Vol]Can not be calculated0.0 - 1.0 mg/dLBon [facility] Medical CenterProtein [Mass/Vol]5.4 g/dLLow 6.6 - 8.7 g/dLBon [facility] Medical CenterLiver Profileon [id number] [Mass/Vol]3.1 g/dLLow3.5-5.2Muniversity hospitals cleveland medical centery North Branch HospitalComment on above:Performed By: #### CMPX, CDP #### [facility] [address] [place] [address] Sdv Pilot/Navigator/Dds Operator: Apoilnar Lemus, MDAlbumin/Glob Ratio1.5Nkefhk8.0-2.5[facility] Medical CenterComment on above:Performed By: #### CMPX, CDP #### [facility] [address] [place] [address] Sdv Pilot/Navigator/Dds Operator: Apolinar Lemus MDAlkaline Phos74 U/QYjhowl58-392Zdply North Branch HospitalComment on above:Performed By: #### CMPX, CDP #### [address] [place], [place] [phone] Sdv Pilot/Navigator/Dds Operator: Apolinar Lemus MDALT [Catalytic activity/Vol]9 U/SCgi15-90Tnzgn [facility]iffin HospitalComment on above:Performed By: #### CMPX, CDP #### [address] [place], [place] 6511983 Sdv Pilot/Navigator/Dds Operator: Apolinar Lemus MDAST [Catalytic activity/Vol]16 U/ENlpceh36-41Mamfc [facility] HospitalComment on above:Performed By: #### CMPX, CDP #### [address] [place], [place] 6385483 Sdv Pilot/Navigator/Dds Operator: Apolinar Lemus MDBilirubin [Mass/Vol]mg/dLNormal0.00-1.20[facility] HospitalComment on above:Performed By: #### CMPX, CDP #### [address] [place], [place] [phone] Sdv Pilot/Navigator/Dds Operator: Apolinar Lemus MDBilirubin, IndirectCan not be calculatedNormal 0.0-1.0[facility]ble HospitalComment on above:Performed By: #### CMPX, CDP #### [address] [place] [address] Sdv Pilot/Navigator/Dds Operator: Shirlene Mckenzie.indirect [Mass/Vol]mg/dLNormal0.00-0.30 [facility] HospitalComment on above:Performed By: #### CMPX, CDP #### [address] [place] [address] Sdv Pilot/Navigator/Dds Operator: Apolinar Lemus MDProtein [Mass/Vol]5.4 g/dLLow6.6-8.7[facility] HospitalComment on above:Performed By: #### CMPX, CDP #### [address] [place] [address] Sdv Pilot/Navigator/Dds Operator: Marce Mckenzie Panel Informationon [id number] and review of laboratory resultsAbnormStafford HospitalBasic Metab w/rfx MGon 40-45-8037Giqos gap [Moles/Vol]8 mmol/LLow 9-16[facility] HospitalComment on above:Performed By: #### CMPX, CDP #### [address] [place], [place] [id number] Sdv Pilot/Navigator/Dds Operator: Apolinar Lemus MDBUN/CRE Ubexy40Jxoqzw5-47Ureks [facility] Comment on above:Performed By: #### CMPX, CDP #### [address] [place] [address] Sdv Pilot/Navigator/Dds Operator: ANNITA Mckenziealcium [Mass/Vol]7.8 mg/dLLow8.6-10.4[facility] Medical CenterComment on above:Performed By: #### CMPX, CDP #### [address] [place] [address] Sdv Pilot/Navigator/Dds Operator: ANNITA Mckenziehloride [Moles/Vol]109 mmol/QCxcl55-332Yevrp [facility] HospitalComment on above:Performed By: #### CMPX, CDP #### [address] [place] [address] Sdv Pilot/Navigator/Dds Operator: Apolinar Lemus MDCO2 [Moles/Vol]25 mmol/PKmwvru19-84Muzkb [facility] HospitalComment on above:Performed By: #### CMPX, CDP #### [address] [place], [place] [phone] Sdv Pilot/Navigator/Dds Operator: Apolinar Lemus MDCreatinine [Mass/Vol]0.8 mg/dLNormal0.50-0.90[facility] HospitalComment on above:Performed By: #### CMPX, CDP #### [address] [place] [address] Sdv Pilot/Navigator/Dds Operator: Apolinar Lemus MDGFR/1.73 sq M.predicted among non-blacks MDRD (S/P/Bld) [Vol rate/Area]86 mL/min/{1.73_m2}Normal>60[facility] Comment on above:Result Comment: These [...] tubular secretion.Performed By: #### CMPX, CDP #### [address] [place], [facility]83 Sdv Pilot/Navigator/Dds Operator: Apolinar Lemus MDGlucose [Mass/Vol]131 mg/bJYirz67-96JfatwTrinity Health System Twin City Medical CenterComment on above:Performed By: #### CMPX, CDP #### [address] [place], [facility]83 Sdv Pilot/Navigator/Dds Operator: ROJAS Mckenzieotassium [Moles/Vol]3.6 mmol/LLow3.7-5.3MTrinity Health System Twin City Medical CenterComment on above:Performed By: #### CMPX, CDP #### [address] [place] [address] Sdv Pilot/Navigator/Dds Operator: Apolinar Lemus MDSodium [Moles/Vol]142 mmol/YJamzrh849-332TcebqUniversity Hospitals Conneaut Medical CenterComment on above:Performed By: #### CMPX, CDP #### [address] [place] [address] Sdv Pilot/Navigator/Dds Operator: Apolinar Lemus MDUrea nitrogen [Mass/Vol]11 mg/dLNormal8-23[facility] CenterComment on above:Performed By: #### CMPX, CDP #### [facility] [address] [place] [address] Sdv Pilot/Navigator/Dds Operator: Shante Mckenziealan Metabolic Panel w/ Reflex to MGon 08-08-2024 Anion gap [Moles/Vol]8 mmol/LLow9 - 16 mmol/LBon SecChildren's Hospital of ColumbusCalcium [Mass/Vol]7.8 mg/dLLow8.6 - 10.4 mg/dLBon [facility] Medical CenterChloride [Moles/Vol]109 mmol/LHigh98 - 107 mmol/LBon [facility] Medical CenterCO2 [Moles/Vol] 25 mmol/L20 - 31 mmol/LBon [facility] CenterCreatinine [Mass/Vol]0.8 mg/dL 0.50 - 0.90 mg/dLBon [facility] Medical CenterEst, Glom Filt Rate86- PINFBon [facility] CenterComment on above: These results are not intended [...] that affects renal tubular secretion. Glucose [Mass/Vol]131 mg/tNZhvi90 - 99 mg/dLBon [facility] Interpretation and review of laboratory resultsAbnormalBon [facility] Potassium [Moles/Vol]3.6 mmol/LLow3.7 - 5.3 mmol/LBon [facility] Medical CenterSodium [Moles/Vol]142 mmol/L136 - 145 mmol/LBon [facility] Medical CenterUrea nitrogen [Mass/Vol]11 mg/dL8 - 23 mg/dLBon [facility] Medical CenterUrea nitrogen/Creatinine [Mass ratio]14 mg/mg9 - 20Bon [facility] HospitalCBC auto differentialon [id number] (Bld) [#/Vol]0.05 10*3/uLBon [facility] CenterBasophils/100 WBC (Bld)1 %0 - 2 %Bon [facility] Medical CenterEosinophils (Bld) [#/Vol]0.33 10*3/uLBon [facility] Healthy HealthEosinophils/100 WBC (Bld)4 %1 - 4 %[facility] HealthErythrocyte distribution width (RBC) [Ratio]19.9 % High11.8 - 14.4 %[facility] HealthHematocrit (Bld) [Volume fraction]31.2 %Low36.3 - 47.1 %[facility] HealthHemoglobin (Bld) [Mass/Vol]9.5 g/dLLow 11.9 - 15.1 g/dLBon Secours Pomerene HospitalImmature granulocytes (Bld) [#/Vol]0.05 10*3/uLBon [facility] Mercy HealthImmature granulocytes/100 WBC (Bld)1 %Wgkz2Ost [facility] HealthInterpretation and review of laboratory resultsAbnormalBon [facility] HealthLymphocytes/100 WBC (Bld)9 %Low24 - 43 %[facility] HealthLymphocytes/100 WBC (Bld)0.74 %LowBon Secours Veterans Health AdministrationH (RBC) [Entitic mass]26.2 pg25.2 - 33.5 pgBon Secours Veterans Health AdministrationHC (RBC) [Mass/Vol] 30.4 g/dL28.4 - 34.8 g/dLBon Secours Veterans Health AdministrationV (RBC) [Entitic vol]86.2 fL 82.6 - 102.9 fLBon [facility]ours Mer[facility] Healthy HealthMonocytes/100 WBC (Bld)9 %3 - 12 %[facility] HealthMonocytes/100 WBC (Bld)0.75 %[facility] Neutrophils/100 WBC (Bld)76 %High36 - 65 %[facility] HealthNucleated RBC/100 WBC (Bld) [Ratio]0 %0.0 per 100 WBCBon Secours Mercy Healthy HealthPlatelet mean volume (Bld) [Entitic vol]8.8 fL8.1 - 13.5 fLBon Secours Mer[facility] Healthy HealthPlatelets (Bld) [#/Vol]277 10*3/uLBon [facility] Healthy HealthRBC (Bld) [#/Vol]3.62 10*6/uLLow 3.95 - 5.11 m/uLBon [facility] Medical CenterSegmented neutrophils/100 WBC (Bld)6.48 %Bon [facility] Medical CenterWBC other (Bld) [#/Vol]8.4Bon [facility] CenterBon [facility] Medical CenterCB with Diffon [id number]. Basophil0.05 k/uLNormal 0.00-0.20[facility] HospitalComment on above:Performed By: #### CMPX, CDP #### [address] [place], [place] [id number] Sdv Pilot/Navigator/Dds Operator: MDAbs. MagalyImm.Granulocyte0.05 k/uLNormal0.00-0.30[facility] HospitalComment on above:Performed By: #### CMPX, CDP #### [address] [place], [facility]83 Sdv Pilot/Navigator/Dds Operator: Cruz Mckenzie.Neutrophil (Seg)6.48 k/uLNormal1.50-8.10[facility] HospitalComment on above:Performed By: #### CMPX, CDP #### [address] [place], [place] [phone] Sdv Pilot/Navigator/Dds Operator: Apolinar Lemus MDBasophils/100 WBC (Bld)1 %Normal0-2[facility] HospitalComment on above:Performed By: #### CMPX, CDP #### [address] [place] [address] Sdv Pilot/Navigator/Dds Operator: Apolinar Lemus MDEosinophils (Bld) [#/Vol]0.33 10*3/uLNormal 0.00-0.44[facility] HospitalComment on above:Performed By: #### CMPX, CDP #### [address] [place], [place] [phone] Sdv Pilot/Navigator/Dds Operator: JADEN Mckenzieosinophils/100 WBC (Bld)4 %Normal1-4[facility] HospitalComment on above:Performed By: #### CMPX, CDP #### [address] [place] [address] Sdv Pilot/Navigator/Dds Operator: Apolinar Lemus MDErythrocyte distribution width (RBC) [Ratio]19.9 % High11.8-14.4[facility]ble HospitalComment on above:Performed By: #### CMPX, CDP #### [address] [place] [id number] Sdv Pilot/Navigator/Dds Operator: Apolinar Lemus MDHematocrit (Bld) [Volume fraction]31.2 %Low 36.3-47.1[facility] HospitalComment on above:Performed By: #### CMPX, CDP #### [address] [place] [id number] Sdv Pilot/Navigator/Dds Operator: Apolinar Lemus MDHemoglobin (Bld) [Mass/Vol]9.5 g/dLLow11.9-15.1 [facility] HospitalComment on above:Performed By: #### CMPX, CDP #### [address] [place] [id number] Sdv Pilot/Navigator/Dds Operator: Apolinar Lemus MDImmature granulocytes/100 WBC (Bld)1 %Dkon1WgudmKettering Health Preble HospitalComment on above:Performed By: #### CMPX, CDP #### [address] [place], [facility]83 Sdv Pilot/Navigator/Dds Operator: Apolinar Lemus MDLymphocytes (Bld) [#/Vol]0.74 10*3/uLLow1.10-3.70 [facility] HospitalComment on above:Performed By: #### CMPX, CDP #### [address] [place], [place] [phone] Sdv Pilot/Navigator/Dds Operator: Eden Mckenziemphocytes/100 WBC (Bld)9 %Vvm63-27WymgmUniversity Hospitals Conneaut Medical CenterComment on above:Performed By: #### CMPX, CDP #### [address] [place] [address] Sdv Pilot/Navigator/Dds Operator: BUZZ MckenzieCH (RBC) [Entitic mass]26.2 cfNzpwuq92.2-33.5 [facility] CenterComment on above:Performed By: #### CMPX, CDP #### [address] [place] [address] Sdv Pilot/Navigator/Dds Operator: BUZZ MckenzieCHC (RBC) [Mass/Vol]30.4 g/oKZsnmdq39.4-34.8[facility] CenterComment on above:Performed By: #### CMPX, CDP #### [address] [place] [address] Sdv Pilot/Navigator/Dds Operator: BUZZ MckenzieCV (RBC) [Entitic vol]86.2 cYDncjvp71.6-102.9 [facility] CenterComment on above:Performed By: #### CMPX, CDP #### [address] [place] [address] Sdv Pilot/Navigator/Dds Operator: BUZZ Mckenzieonocytes (Bld) [#/Vol]0.75 10*3/uLNormal0.10-1.20 [facility] CenterComment on above:Performed By: #### CMPX, CDP #### [address] [place] [address] Sdv Pilot/Navigator/Dds Operator: BUZZ Mckenzieonocytes/100 WBC (Bld)9 %Normal3-12[facility] Medical CenterComment on above:Performed By: #### CMPX, CDP #### [address] [place], [place] 1464383 Sdv Pilot/Navigator/Dds Operator: Apolinar Lemus MDNeutrophil (Seg)76 %Hvuh71-77EnnaeUniversity Hospitals Conneaut Medical Center Comment on above:Performed By: #### CMPX, CDP #### [address] [place] [address] Sdv Pilot/Navigator/Dds Operator: SVETLANA Mckenzie Automated0.0 per 100 WBCNormal0.0[facility] Medical CenterComment on above:Performed By: #### CMPX, CDP #### [address] [place] [address] Sdv Pilot/Navigator/Dds Operator: Nicanor Mckenzie mean volume (Bld) [Entitic vol]8.8 fL Normal8.1-13.5[facility] CenterComment on above:Performed By: #### CMPX, CDP #### [address] [place] [address] Sdv Pilot/Navigator/Dds Operator: Corey Mckenzie (Bld) [#/Vol]277 10*3/tMJnpbuk109-368 [facility] CenterComment on above:Performed By: #### CMPX, CDP #### [address] [place] [address] Sdv Pilot/Navigator/Dds Operator: GEOVANY Mckenzie (Bld) [#/Vol]3.62 10*6/uLLow3.95-5.11[facility] CenterComment on above:Performed By: #### CMPX, CDP #### [address] [place] [address] Sdv Pilot/Navigator/Dds Operator: RAZA Mckenzie (Bld) [#/Vol]8.4 10*3/uLNormal3.5-11.3MTrinity Health System Twin City Medical CenterComment on above:Performed By: #### CMPX, CDP #### [address] [place], [place] [phone] Sdv Pilot/Navigator/Dds Operator: Lavon Mckenziec Metab w/rfx MGon 27-00-6564Sdmec gap [Moles/Vol]10 mmol/LNormal9-16[facility] CenterComment on above:Performed By: #### BMPX, CDP #### [facility] [address] [place] [address] [place] [address] Sdv Pilot/Navigator/Dds Operator: Apolinar Lemus MDBUN/CRE Hufec72Icssig8-46Eqjdq [facility] Comment on above:Performed By: #### BMPX, CDP #### [address] [place] [address] Sdv Pilot/Navigator/Dds Operator: ANNITA Mckenziealcium [Mass/Vol]7.5 mg/dLLow8.6-10.4[facility] CenterComment on above:Performed By: #### BMPX, CDP #### [address] [place] [address] Sdv Pilot/Navigator/Dds Operator: ANNITA Mckenziehloride [Moles/Vol]106 mmol/VMifhph83-677XgkkwUniversity Hospitals Conneaut Medical CenterComment on above:Performed By: #### BMPX, CDP #### [address] [place] [address] Sdv Pilot/Navigator/Dds Operator: Apolinar Lemus MDCO2 [Moles/Vol]22 mmol/OBmfhpf56-56LxcmmUniversity Hospitals Conneaut Medical CenterComment on above:Performed By: #### BMPX, CDP #### [address] [place] [address] Sdv Pilot/Navigator/Dds Operator: ANNITA Mckenziereatinine [Mass/Vol]0.8 mg/dLNormal0.50-0.90[facility] CenterComment on above:Performed By: #### BMPX, CDP #### [address] [place], [place] [id number] Sdv Pilot/Navigator/Dds Operator: Apolinar Lemus MDGFR/1.73 sq M.predicted among non-blacks MDRD (S/P/Bld) [Vol rate/Area]85 mL/min/{1.73_m2}Normal>60[facility] Comment on above:Result Comment: These [...] tubular secretion.Performed By: #### BMPX, CDP #### [address] [place] [address] Sdv Pilot/Navigator/Dds Operator: Apolinar Lemus MDGlucose [Mass/Vol]124 mg/uETwbs43-44QhacfTrinity Health System Twin City Medical CenterComment on above:Performed By: #### KYLEX, CDP #### [address] [place] [address] Sdv Pilot/Navigator/Dds Operator: ROJAS Mckenzieotassium [Moles/Vol]3.7 mmol/LNormal3.7-5.3Muniversity hospitals cleveland medical centery North Branch HospitalComment on above:Result Comment: Specimen hemolysis has exceeded the interference as defined by Anthony. Value may be falsely increased. Suggest recollection if clinically indicated.Performed By: #### KYLEX, CDP #### [address] [place] [address] Sdv Pilot/Navigator/Dds Operator: ADÁN Mckenzieodium [Moles/Vol]138 mmol/OJgunhf392-824KnphxUniversity Hospitals Conneaut Medical CenterComment on above:Performed By: #### KYLEX, CDP #### [address] [place], [place] [id number] Sdv Pilot/Navigator/Dds Operator: Apolinar Lemus MDUrea nitrogen [Mass/Vol]14 mg/dLNormal8-23[facility] CenterComment on above:Performed By: #### KYLEX, CDP #### [address] [place] [address] Sdv Pilot/Navigator/Dds Operator: Apolinar Lemus MDBasi Metabolic Panel w/ Reflex to MGon 08-07-2024 Anion gap [Moles/Vol]10 mmol/L9 - 16 mmol/LBon [facility] HealthCalcium [Mass/Vol]7.5 mg/dLLow8.6 - 10.4 mg/dLBon [facility] Medical CenterChloride [Moles/Vol]106 mmol/L98 - 107 mmol/LBon [facility] Medical CenterCO2 [Moles/Vol]22 mmol/L20 - 31 mmol/LBon [facility] CenterCreatinine [Mass/Vol]0.8 mg/dL0.50 - 0.90 mg/dLBon [facility] CenterEst, Glom Filt Rate85- PINFBon [facility] CenterComment on above: These results are not intended [...] that affects renal tubular secretion. Glucose [Mass/Vol]124 mg/xMDswo45 - 99 mg/dLBon [facility] Interpretation and review of laboratory resultsAbnormalBon [facility] Potassium [Moles/Vol]3.7 mmol/L3.7 - 5.3 mmol/LBon Salem City Hospitalment on above:Specimen hemolysis has exceeded the interference as defined by Anthony. Value may be falsely increased. Suggest recollection if clinically indicated. Sodium [Moles/Vol]138 mmol/L136 - 145 mmol/LBon [facility] Medical CenterUrea nitrogen [Mass/Vol]14 mg/dL8 - 23 mg/dLBon [facility] Medical CenterUrea nitrogen/Creatinine [Mass ratio]18 mg/mg9 - 20Bon SecChildren's Hospital of ColumbusBon SecChildren's Hospital of ColumbusCBC auto differentialon [id number] (Bld) [#/Vol] 0.07 10*3/uLBon [facility] CenterBasophils/100 WBC (Bld)1 %0 - 2 %Bon [facility] Medical CenterEosinophils (Bld) [#/Vol]0.28 10*3/uLBon [facility] Eosinophils/100 WBC (Bld)4 %1 - 4 %Bon [facility] Medical CenterErythrocyte distribution width (RBC) [Ratio]19.8 %High11.8 - 14.4 %[facility] Hematocrit (Bld) [Volume fraction]32.5 %Low36.3 - 47.1 %[facility] Hemoglobin (Bld) [Mass/Vol]10 g/dLLow11.9 - 15.1 g/dLBon [facility] Immature granulocytes (Bld) [#/Vol]0.03 10*3/uLBon [facility] Medical CenterImmature granulocytes/100 WBC (Bld)0 %0[facility] HospitalInterpretation and review of laboratory resultsAbnormalSentara Leigh HospitalLymphocytes/100 WBC (Bld)13 %Low24 - 43 %[facility] HospitalLymphocytes/100 WBC (Bld)0.93 %LowLewisGale Hospital MontgomeryH (RBC) [Entitic mass]26.5 pg25.2 - 33.5 pgLewisGale Hospital MontgomeryHC (RBC) [Mass/Vol]30.8 g/dL28.4 - 34.8 g/dLBon [facility] Medical CenterMCV (RBC) [Entitic vol]86 fL82.6 - 102.9 fLSentara Leigh Hospital Monocytes/100 WBC (Bld)9 %3 - 12 %[facility] HospitalMonocytes/100 WBC (Bld)0.64 %[facility] HospitalNeutrophils/100 WBC (Bld)72 %High36 - 65 %[facility] HospitalNucleated RBC/100 WBC (Bld) [Ratio]0.3 %High0.0 per 100 WBC [facility] HospitalPlatelet mean volume (Bld) [Entitic vol]9.1 fL8.1 - 13.5 fLSentara Leigh HospitalPlatelets (Bld) [#/Vol]283 10*3/uLBon [facility] Medical CenterRBC (Bld) [#/Vol]3.78 10*6/uLLow3.95 - 5.11 m/uLBon [facility] Segmented neutrophils/100 WBC (Bld)5.07 %[facility] HospitalWBC other (Bld) [#/Vol]7[facility] HealthBon [facility] with Diffon [id number]. Basophil0.07 k/uLNormal0.00-0.20MerOhioHealth HospitalComment on above:Performed By: #### BMPX, CDP #### [address] [place] [address] Sdv Pilot/Navigator/Dds Operator: Cruz Mckenzie.Imm.Granulocyte0.03 k/uLNormal0.00-0.30MerOhioHealth HospitalComment on above:Performed By: #### BMPX, CDP #### [address] [place] [address] Sdv Pilot/Navigator/Dds Operator: Cruz Mckenzie.Neutrophil (Seg)5.07 k/uLNormal1.50-8.10MerOhioHealth HospitalComment on above:Performed By: #### BMPX, CDP #### [address] Rodriguez, [place] [address] Sdv Pilot/Navigator/Dds Operator: Apolinar Lemus MDBasophils/100 WBC (Bld)1 %Normal0-2Mer[facility] Branch HospitalComment on above:Performed By: #### BMPX, CDP #### [address] [place], [place] [address] Sdv Pilot/Navigator/Dds Operator: Apolinar Lemus MDEosinophils (Bld) [#/Vol]0.28 10*3/uLNormal 0.00-0.44K[facility] Preble HospitalComment on above:Performed By: #### BMPX, CDP #### [address] [place], [place] [address] Sdv Pilot/Navigator/Dds Operator: JADEN Mckenzieosinophils/100 WBC (Bld)4 %Normal1-4MerOhioHealth HospitalComment on above:Performed By: #### BMPX, CDP #### [address] Rodriguez, [facility]83 Sdv Pilot/Navigator/Dds Operator: Hattie Mckenziemature granulocytes/100 WBC (Bld)0 %Rjqxzp5UmoqwUniversity Hospitals Conneaut Medical CenterComment on above:Performed By: #### BMPX, CDP #### [facility] [address] [place] [address] Dr. Rodriguez, [place] [id number] Sdv Pilot/Navigator/Dds Operator: Apolinar Lemus MDLymphocytes (Bld) [#/Vol]0.93 10*3/uLLow1.10-3.70 [facility] Conneaut Medical CenterComment on above:Performed By: #### BMPX, CDP #### [address] Rodriguez, [place] [address]83 Sdv Pilot/Navigator/Dds Operator: Apolinar Lemus MDLymphocytes/100 WBC (Bld)13 %Zpo08-84DruvcUniversity Hospitals Conneaut Medical CenterComment on above:Performed By: #### BMPX, CDP #### [address] Rodriguez, [place] 485[address]83 Sdv Pilot/Navigator/Dds Operator: BUZZ Mckenzieonocytes (Bld) [#/Vol]0.64 10*3/uLNormal0.10-1.20 [facility] Conne[facility] Medical CenterComment on above:Performed By: #### BMPX, CDP #### [address] Rodriguez, [place] 07[address]3 Sdv Pilot/Navigator/Dds Operator: BUZZ Mckenzieonocytes/100 WBC (Bld)9 %Normal3-12[facility] Conneaut Medical CenterComment on above:Performed By: #### BMPX, CDP #### [address] Rodriguez, [place] [id number] Sdv Pilot/Navigator/Dds Operator: Apolinar Lemus MDNeutrophil (Seg)72 %Duui27-36IabvrUniversity Hospitals Conneaut Medical Center Comment on above:Performed By: #### BMPX, CDP #### [address] Rodriguez, [place] [id number] Sdv Pilot/Navigator/Dds Operator: Apolinar Lemus MDErythrocyte distribution width (RBC) [Ratio]19.8 % High11.8-14.4[facility] Preble HospitalComment on above:Performed By: #### BMPX, CDP #### [address] [place] [address] Sdv Pilot/Navigator/Dds Operator: Apolinar Lemus MDHematocrit (Bld) [Volume fraction]32.5 %Low 36.3-47.1MTwin City Hospital HospitalComment on above:Performed By: #### BMPX, CDP #### [address] [place] [address] Sdv Pilot/Navigator/Dds Operator: Apolinar Lemus MDHemoglobin (Bld) [Mass/Vol]10.0 g/dLLow11.9-15.1 [facility] Conneaut Medical CenterComment on above:Performed By: #### BMPX, CDP #### [address] [place], [facility]83 Sdv Pilot/Navigator/Dds Operator: BUZZ MckenzieCH (RBC) [Entitic mass]26.5 oxFhwdvi16.2-33.5 [facility] HospitalComment on above:Performed By: #### BMPX, CDP #### [address] [place] [address] Sdv Pilot/Navigator/Dds Operator: ELLA MckenzieC (RBC) [Mass/Vol]30.8 g/nXQrlhrb38.4-34.8[facility] HospitalComment on above:Performed By: #### BMPX, CDP #### [address] [place] [address] Sdv Pilot/Navigator/Dds Operator: BUZZ MckenzieCV (RBC) [Entitic vol]86.0 cZVombjn08.6-102.9 [facility] HospitalComment on above:Performed By: #### BMPX, CDP #### [address] [place] [address] Sdv Pilot/Navigator/Dds Operator: ANGEL MckenzieBC Automated0.3 per 100 WBCHigh0.0[facility] HospitalComment on above:Performed By: #### BMPX, CDP #### [facility] [address] [place] [address] [place] [address] Sdv Pilot/Navigator/Dds Operator: Nicanor Mckenzie mean volume (Bld) [Entitic vol]9.1 fL Normal8.1-13.5[facility] HospitalComment on above:Performed By: #### BMPX, CDP #### [address] [place] [address] Sdv Pilot/Navigator/Dds Operator: Corey Mckenzie (Bld) [#/Vol]283 10*3/zUIafxls702-834 [facility] HospitalComment on above:Performed By: #### BMPX, CDP #### [address] [place] [address] Sdv Pilot/Navigator/Dds Operator: GEOVANY Mckenzie (Bld) [#/Vol]3.78 10*6/uLLow3.95-5.11[facility] HospitalComment on above:Performed By: #### BMPX, CDP #### [address] [place] [address] Sdv Pilot/Navigator/Dds Operator: RAZA Mckenzie (Bld) [#/Vol]7.0 10*3/uLNormal3.5-11.3MTwin City Hospital HospitalComment on above:Performed By: #### BMPX, CDP #### [address] [place] [address] Sdv Pilot/Navigator/Dds Operator: LEANDRO Mckenzie 12 Lead [id number] Wquh84FEUNqd [facility] HealthP Bsdn26tgbjkztPuu [facility] HealthP-R Cqdwvnjo919 msBon [facility] HealthQ-T Wjyuuqon623 msBon [facility] HealthQRS Kyhhdusz11 ms [facility] HealthQTc Calculation (Ara)402 msBon [facility] HealthR Aurora-17degreesBon [facility]ours Depaul Medical CenterNova Specialty Hospitals Pomerene HospitalT Wouc48fbnczhsLqfSentara Leigh Hospital Ventricular Nwug62INJHkg [facility] Consider ACUTE CORONARY SYNDROME (ACS) Sinus bradycardia Possible Left atrial enlargement Nonspecific ST abnormality ECG interpretation of ACS is based on presence of symptoms and T-wave inversion in Septal leads Abnormal ECG When compared with ECG of 02-Jan-2024 16:02, T wave inversion no longer evident in Inferior leads T wave inversion less evident in Anterior leads Confirmed by Josef Brooks ([id number]) on 08/07/2024 8:24:00 AMPiedmont RockdaleJosef venegas MD - 08/07/2024 Consider ACUTE CORONARY [...] in Anterior leads Confirmed by Josef Brooks ([id number]) on 08/07/2024 8:24:00 AM [facility] Depaul Medical CenterReverse MedicalBon Secours Depaul Medical CenterReverse MedicalVascular duplex lower extremity arteries bilateralOrdered By: Timothy John on 63-43-9705Fqgk surface area Derived from formula1.56 m2[facility] [employer] Work Phone: Left BROCK mid PSV24.8 cm/sBon [employer] Work Phone: Left IT PROGRAMMER ANALYST prox PSV91.5 cm/sBon [employer] Work Phone: Left peroneal mid PSV16 cm/sBon [employer] Work Phone: Left PFA prox PSV31.6 cm/sBon [employer] Work Phone: Left SHEET HANGER mid PSV28.1 cm/sBon [employer] Work Phone: Left SFA dist PSV48.2 cm/[employer] Work Phone: Right BROCK mid PSV29.7 cm/sBon [facility] Work Phone: [phone] IT PROGRAMMER ANALYST dist PSV79.8 cm/sBon [facility] Work Phone: [phone] IT PROGRAMMER ANALYST prox PSV40.3 cm/sBon [facility] [facility] Work Phone: [phone] peronal mid PSV19.9 cm/sBon [facility] Work Phone: [phone] Pop A dist PSV39.6 cm/sBon [facility] Work Phone: [phone] Pop A prox PSV24.8 cm/sBon [facility] Work Phone: Right Pop A prox otilio ratio0.85Bon [facility] Work Phone: Right SHEET HANGER mid PSV24.8 cm/sBon [facility] Work Phone: Right SFA dist PSV29.2 cm/sBon [facility] Work Phone: Right SFA dist otilio ratio0.93Bon [facility] Work Phone: Right SFA mid PSV31.4 cm/sBon [facility] Work Phone: [facility] Work Phone: Vascular duplex lower extremity arteries bilateralon [id number] right superficial femoral artery is occluded with [...] difficult to visualize the proximal and distal anastomosis.[facility] CV CPACSRadiology Study observation (narrative)[facility] HospitalCBC auto differentialon [id number] (Bld) [#/Vol]0.08 10*3/uLBon [facility] CenterBasophils/100 WBC (Bld)1 %0 - 2 %[facility] HospitalEosinophils (Bld) [#/Vol]0.39 10*3/uLBon [facility] Eosinophils/100 WBC (Bld)5 %High1 - 4 %[facility] Leigh HospitalErythrocyte distribution width (RBC) [Ratio]19.4 %High11.8 - 14.4 %[facility] Hematocrit (Bld) [Volume fraction]32.9 %Low36.3 - 47.1 %[facility] Hemoglobin (Bld) [Mass/Vol]10.3 g/dLLow11.9 - 15.1 g/dLBon [facility] Immature granulocytes (Bld) [#/Vol]0.04 10*3/uLBon [facility] Medical CenterImmature granulocytes/100 WBC (Bld)1 %Obtu0DeySentara Leigh HospitalInterpretation and review of laboratory resultsAbnormalSentara Leigh HospitalLymphocytes/100 WBC (Bld)12 %Low24 - 43 %[facility] HospitalLymphocytes/100 WBC (Bld)0.94 %Low [facility] MontgomeryH (RBC) [Entitic mass]26.6 pg25.2 - 33.5 pgLewisGale Hospital MontgomeryHC (RBC) [Mass/Vol]31.3 g/dL28.4 - 34.8 g/dLBon [facility] Medical CenterMCV (RBC) [Entitic vol]85 fL82.6 - 102.9 fLSentara Leigh Hospital Monocytes/100 WBC (Bld)11 %3 - 12 %[facility] HospitalMonocytes/100 WBC (Bld)0.83 %[facility] HospitalNeutrophils/100 WBC (Bld)70 %High36 - 65 %[facility] HospitalNucleated RBC/100 WBC (Bld) [Ratio]0.3 %High0.0 per 100 WBC [facility] Leigh HospitalPlatelet mean volume (Bld) [Entitic vol]9.2 fL8.1 - 13.5 fLSentara Leigh HospitalPlatelets (Bld) [#/Vol]296 10*3/uLBon [facility] Medical CenterRBC (Bld) [#/Vol]3.87 10*6/uLLow3.95 - 5.11 m/uLSentara Leigh Hospital Segmented neutrophils/100 WBC (Bld)5.66 %[facility] HospitalWBC other (Bld) [#/Vol]7.9Bon [facility] HospitalCBC with Diffon [id number]. Basophil0.08 k/uLNormal0.00-0.20MerOhioHealth HospitalComment on above:Performed By: #### CMPX, CDP #### [address] [place] [address] Sdv Pilot/Navigator/Dds Operator: Cruz Mckenzie.Imm.Granulocyte0.04 k/uLNormal0.00-0.30[facility]aut Medical CenterComment on above:Performed By: #### CMPX, CDP #### [address] [place] [address] Sdv Pilot/Navigator/Dds Operator: Cruz Mckenzie.Neutrophil (Seg)5.66 k/uLNormal1.50-8.10[facility] Medical CenterComment on above:Performed By: #### CMPX, CDP #### [address] [place] [address] Sdv Pilot/Navigator/Dds Operator: Apolinar Lemus MDBasophils/100 WBC (Bld)1 %Normal0-2[facility] HospitalComment on above:Performed By: #### CMPX, CDP #### [address] [place] [address] Sdv Pilot/Navigator/Dds Operator: Apolinar Lemus MDEosinophils (Bld) [#/Vol]0.39 10*3/uLNormal 0.00-0.44[facility] HospitalComment on above:Performed By: #### CMPX, CDP #### [address] [place] [address] Sdv Pilot/Navigator/Dds Operator: Apolinar Lemus MDEosinophils/100 WBC (Bld)5 %High1-4MerOhioHealth HospitalComment on above:Performed By: #### CMPX, CDP #### [address] [place], [place] [address] Sdv Pilot/Navigator/Dds Operator: Apolinar Lemus MDErythrocyte distribution width (RBC) [Ratio]19.4 % High11.8-14.4[facility] HospitalComment on above:Performed By: #### CMPX, CDP #### [address] [place] [address] Sdv Pilot/Navigator/Dds Operator: Apolinar Lemus MDHematocrit (Bld) [Volume fraction]32.9 %Low 36.3-47.1MercMercy Health St. [facility]'s Medical Center HospitalComment on above:Performed By: #### CMPX, CDP #### [address] [place] [address] Sdv Pilot/Navigator/Dds Operator: Apolinar Lemus MDHemoglobin (Bld) [Mass/Vol]10.3 g/dLLow11.9-15.1 [facility] HospitalComment on above:Performed By: #### CMPX, CDP #### [address] [place] [address] Sdv Pilot/Navigator/Dds Operator: Apolinar Lemus MDImmature granulocytes/100 WBC (Bld)1 %Ikme5RwccgKettering Health Preble HospitalComment on above:Performed By: #### CMPX, CDP #### [address] [place] [address] Sdv Pilot/Navigator/Dds Operator: Apolinar Lemus MDLymphocytes (Bld) [#/Vol]0.94 10*3/uLLow1.10-3.70 [facility] HospitalComment on above:Performed By: #### CMPX, CDP #### [address] [place] [address] Sdv Pilot/Navigator/Dds Operator: Eden Mckenziemphocytes/100 WBC (Bld)12 %Zjx11-36Eijor Tiffin HospitalComment on above:Performed By: #### CMPX, CDP #### [address] [place] [address] Sdv Pilot/Navigator/Dds Operator: BUZZ MckenzieCH (RBC) [Entitic mass]26.6 wyZkctrr53.2-33.5 [facility] HospitalComment on above:Performed By: #### CMPX, CDP #### [address] [place] [address] Sdv Pilot/Navigator/Dds Operator: ELLA MckenzieC (RBC) [Mass/Vol]31.3 g/iGAxqxco52.4-34.8[facility] HospitalComment on above:Performed By: #### CMPX, CDP #### [address] [place] [address] Sdv Pilot/Navigator/Dds Operator: BUZZ MckenzieCV (RBC) [Entitic vol]85.0 rQTdizbs95.6-102.9 [facility] HospitalComment on above:Performed By: #### CMPX, CDP #### [address] [place] [address] Sdv Pilot/Navigator/Dds Operator: BUZZ Mckenzieonocytes (Bld) [#/Vol]0.83 10*3/uLNormal0.10-1.20 [facility] Medical CenterComment on above:Performed By: #### CMPX, CDP #### [facility] [address] [place] [address] Dr. Rodriguez, [place] [id number] Sdv Pilot/Navigator/Dds Operator: BUZZ Mckenzieonocytes/100 WBC (Bld)11 %Normal3-12[facility] Medical CenterComment on above:Performed By: #### CMPX, CDP #### [facility] [address] [place] [address] [place] [address] Sdv Pilot/Navigator/Dds Operator: Yina Mckenzieophil (Seg)70 %Cbqd53-21PytkuUniversity Hospitals Conneaut Medical Center Comment on above:Performed By: #### CMPX, CDP #### [address] [place], [place] 6996183 Sdv Pilot/Navigator/Dds Operator: Apolinar Lemus MDNRBC Automated0.3 per 100 WBCHigh0.0[facility] Conneaut Medical CenterComment on above:Performed By: #### CMPX, CDP #### [address] [place], [place] 360[address]41 ([address] Sdv Pilot/Navigator/Dds Operator: ROJAS Mckenzielatelet mean volume (Bld) [Entitic vol]9.2 fL Normal8.1-13.5[facility] Medical CenterComment on above:Performed By: #### CMPX, CDP #### [facility] [address] [place] [address] [place] [address] Sdv Pilot/Navigator/Dds Operator: Apolinar Lemus MDPlatelets (Bld) [#/Vol]296 10*3/hAWlipee738-493 [facility] CenterComment on above:Performed By: #### CMPX, CDP #### [address] [place], [place] [id number] Sdv Pilot/Navigator/Dds Operator: Apolinar Lemus MDRBC (Bld) [#/Vol]3.87 10*6/uLLow3.95-5.11[facility] HospitalComment on above:Performed By: #### CMPX, CDP #### [facility] [address] [place], [place] [id number] Sdv Pilot/Navigator/Dds Operator: RAZA Mckenzie (d) [#/Vol]7.9 10*3/uLNormal3.5-11.3[facility] HospitalComment on above:Performed By: #### CMPX, CDP #### [facility] [address] [place] [address] Sdv Pilot/Navigator/Dds Operator: Apolinar Lemus MDCT CHEST ABDOMEN PELVIS W CONTRASTon [id number] CHEST ABDOMEN PELVIS W CONTRASTEXAMINATION: CT OF [...] plaque along the aorta and its branches. 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 Aortic graft [...] by: Arben Villalpando MD 08/06/24 Final resultNormalMercy Manchester Memorial Hospital Chest and Abdomen and Pelvis W [...] and L3. 14. Multilevel vacuum disc phenomena. [facility] RIS CONSOLIDATEDEXAMINATION: CT OF THE CHEST, ABDOMEN, [...] plaque along the aorta and its branches. 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 Aortic graft [...] pars defects noted at L1 and L2. [facility] Arben George MD - 08/06/2024 EXAMINATION: CT [...] plaque along the aorta and its branches. 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 Aortic graft [...] and L3. 14. Multilevel vacuum disc phenomena. [facility] HospitalRadiology Study observation (narrative)[facility] Chest and Abdomen and Pelvis W contrast IVOrdered By: Arben Villalpando on [id number] [facility] Work Phone: CT FOOT LEFT W CONTRASTon [id number] FOOT LEFT W CONTRASTEXAMINATION: CT OF THE [...] tissue gas. No focal intramuscular abnormality. Joint: Unuy-yr-qjjmcnxn tricompartmental osteoarthritis of the knee joint. No [...] Signed by: Geovanny Melo MD 08/06/24 Final resultNormalMerGreenwich Hospital FOOT RIGHT W CONTRASTon [id number] FOOT RIGHT W CONTRASTEXAMINATION: CT OF THE [...] tissue gas. No focal intramuscular abnormality. Joint: Ecur-ef-modjxvny tricompartmental osteoarthritis of the knee joint. No [...] Signed by: Geovanny Melo MD 08/06/24 Final resultNormalMerGreenwich Hospital Foot - left W contrast Atiya 08-06-2024 Radiology Study observation (narrative)[facility] Foot - right W contrast Atiya [id number] Study observation (narrative)[facility] HEAD WO CONTRASTon [id number] HEAD WO CONTRASTEXAMINATION: CT OF THE HEAD [...] by: Georgiana Peng MD 08/06/24 Final resultNormalMercy Manchester Memorial Hospital Head WO contraston [id number] acute intracranial abnormality or calvarial fracture. [facility] RIS CONSOLIDATEDEXAMINATION: CT OF THE HEAD WITHOUT [...] the left forehead. No acute calvarial fracture. [facility] Georgiana Aguilar MD - 08/06/2024 EXAMINATION: CT [...] No acute intracranial abnormality or calvarial fracture. [facility] ZextitRadiology Study observation (narrative)[facility] Head WO contrastOrdered By: Georgiana Peng on [id number] [facility] [employer] Work Phone: CT Lower leg - left W contrast Atiya 08-06-2024 Radiology Study observation (narrative)[facility] Lower leg - right W contrast Atiya [id number] Study observation (narrative)[facility] TIBIA FIBULA LEFT W CONTRASTon [id number] TIBIA FIBULA LEFT W CONTRASTEXAMINATION: CT OF [...] tissue gas. No focal intramuscular abnormality. Joint: Ikdg-gf-czepmvtp tricompartmental osteoarthritis of the knee joint. No [...] by: Geovanny Melo MD 08/06/24 Final resultNormalMercy Manchester Memorial Hospital TIBIA FIBULA RIGHT W CONTRASTon [id number] TIBIA FIBULA RIGHT W CONTRASTEXAMINATION: CT OF [...] tissue gas. No focal intramuscular abnormality. Joint: Vjch-wq-lqfmpwih tricompartmental osteoarthritis of the knee joint. No [...] Signed by: Geovanny Melo MD 08/06/24 Final resultNormalUniversity Hospitals Conneaut Medical CenterComp Metabolic Pr/rfx MGon 08-06-2024 Albumin [Mass/Vol]3.4 g/dLLow3.5-5.2MTrinity Health System Twin City Medical CenterComment on above: Performed By: #### CMPX, CDP #### [address] [place] [id number] Sdv Pilot/Navigator/Dds Operator: Apolinar Lemus MDAlbumin/Glob Ratio1.6Pihtcq6.0-2.5[facility] Medical CenterComment on above:Performed By: #### CMPX, CDP #### [address] [place] [address]83 Sdv Pilot/Navigator/Dds Operator: Germania Mckenziekaline Phos95 U/SUrfqkq76-927YkplhUniversity Hospitals Conneaut Medical CenterComment on above:Performed By: #### CMPX, CDP #### [address] [place] [address] Sdv Pilot/Navigator/Dds Operator: Apolinar Lemus MDALT [Catalytic activity/Vol]11 U/ZYulqej68-74JgizaUniversity Hospitals Conneaut Medical CenterComment on above:Performed By: #### CMPX, CDP #### [address] [place], [place] [phone] Sdv Pilot/Navigator/Dds Operator: Apolinar Lemus MDAnion gap [Moles/Vol]9 mmol/LNormal9-16[facility] Medical CenterComment on above:Performed By: #### CMPX, CDP #### [address] [place], [place] [address]383 Sdv Pilot/Navigator/Dds Operator: Apolinar Lemus MDAST [Catalytic activity/Vol]21 U/HVnzihr88-26WfzysUniversity Hospitals Conneaut Medical CenterComment on above:Performed By: #### CMPX, CDP #### [address] [place], [place] 1467483 Sdv Pilot/Navigator/Dds Operator: Apolinar Lemus MDBilirubin [Mass/Vol]mg/dLNormal0.00-1.20[facility] Medical CenterComment on above:Performed By: #### CMPX, CDP #### [address] [place], [place] 432[address]83 Sdv Pilot/Navigator/Dds Operator: Apolinar Lemus MDBUN/CRE Dprxl25Mexrxu3-59Llqgx [facility] Comment on above:Performed By: #### CMPX, CDP #### [address] [place], [place] [id number] Sdv Pilot/Navigator/Dds Operator: Apolinar Lemus MDCalcium [Mass/Vol]8.2 mg/dLLow8.6-10.4[facility] Medical CenterComment on above:Performed By: #### CMPX, CDP #### [address] [place] [address] Sdv Pilot/Navigator/Dds Operator: ANNITA Mckenziehloride [Moles/Vol]102 mmol/YYmorqh90-802LdowlUniversity Hospitals Conneaut Medical CenterComment on above:Performed By: #### CMPX, CDP #### [address] [place], [place] [address]67683 Sdv Pilot/Navigator/Dds Operator: Apolinar Lemus MDCO2 [Moles/Vol]23 mmol/XMuhkbq93-13LgsfgUniversity Hospitals Conneaut Medical CenterComment on above:Performed By: #### CMPX, CDP #### [address] [place] [address] Sdv Pilot/Navigator/Dds Operator: ANNITA Mckenziereatinine [Mass/Vol]1.0 mg/dLHigh0.50-0.90[facility] Medical CenterComment on above:Performed By: #### CMPX, CDP #### [address] [place] [address] Sdv Pilot/Navigator/Dds Operator: Apolinar Lemus MDGFR/1.73 sq M.predicted among non-blacks MDRD (S/P/Bld) [Vol rate/Area]67 mL/min/{1.73_m2}Normal>60[facility] Comment on above:Result Comment: These [...] tubular secretion.Performed By: #### CMPX, CDP #### [address] [place] [address] Sdv Pilot/Navigator/Dds Operator: Apolinar Lemus MDGlucose [Mass/Vol]141 mg/hZJuvm19-43MmrabTrinity Health System Twin City Medical CenterComment on above:Performed By: #### CMPX, CDP #### [address] [place] [address] Sdv Pilot/Navigator/Dds Operator: ROJAS Mckenzieotassium [Moles/Vol]3.6 mmol/LLow3.7-5.3MTrinity Health System Twin City Medical CenterComment on above:Performed By: #### CMPX, CDP #### [address] [place] [address] Sdv Pilot/Navigator/Dds Operator: Apolinar Lemus MDProtein [Mass/Vol]5.8 g/dLLow6.6-8.7[facility] Medical CenterComment on above:Performed By: #### CMPX, CDP #### [facility] [address] [place] [address] [place] [address] Sdv Pilot/Navigator/Dds Operator: ADÁN Mckenzieodium [Moles/Vol]134 mmol/VLrk199-935DpzmqUniversity Hospitals Conneaut Medical CenterComment on above:Performed By: #### CMPX, CDP #### [facility] [address] [place] [address] [place] [address] Sdv Pilot/Navigator/Dds Operator: Apolinar Lemus MDUrea nitrogen [Mass/Vol]16 mg/dLNormal8-23[facility] Medical CenterComment on above:Performed By: #### CMPX, CDP #### [address] [place] [address] Sdv Pilot/Navigator/Dds Operator: ANNITA Mckenzieomprehensive Metabolic Panel w/ Reflex to MGon [id number] [Mass/Vol]3.4 g/dLLow3.5 - 5.2 g/dLBon [facility] Albumin/Globulin [Mass ratio]1.4 {ratio}1.0 - 2.5Bon SecPo[facility] HealthALP [Catalytic activity/Vol]95 U/L35 - 104 U/LBon [facility] HealthALT [Catalytic activity/Vol]11 U/L10 - 35 U/LBon Secours [facility] Healthy HealthAnion gap [Moles/Vol]9 mmol/L9 - 16 mmol/LBon Secours [facility] Healthy HealthAST [Catalytic activity/Vol]21 U/L10 - 35 U/LBon Secours [facility] HealthBilirubin [Mass/Vol]mg/dL0.00 - 1.20 mg/dLBon Secours [facility] Healthy HealthCalcium [Mass/Vol]8.2 mg/dLLow8.6 - 10.4 mg/dLBon Secours [facility] Healthy HealthChloride [Moles/Vol]102 mmol/L98 - 107 mmol/LBon Secours [facility] HealthCO2 [Moles/Vol]23 mmol/L20 - 31 mmol/LBon Secours Mercy HealthCreatinine [Mass/Vol]1.0 mg/dLHigh0.50 - 0.90 mg/dLBon [facility] CenterEst, Glom Filt Rate67- PINFBon [facility] Medical CenterComment on above: These results are not intended [...] that affects renal tubular secretion. Glucose [Mass/Vol]141 mg/bHKeri84 - 99 mg/dLBon [facility] Interpretation and review of laboratory resultsAbnormalBon [facility] Potassium [Moles/Vol]3.6 mmol/LLow3.7 - 5.3 mmol/LBon [facility] Protein [Mass/Vol]5.8 g/dLLow6.6 - 8.7 g/dLBon [facility] CenterSodium [Moles/Vol]134 mmol/IPqt687 - 145 mmol/LBon [facility] Medical CenterUrea nitrogen [Mass/Vol]16 mg/dL8 - 23 mg/dLBon [facility] Medical CenterUrea nitrogen/Creatinine [Mass ratio]16 mg/mg9 - 20Bon [facility] HospitalGram Stainon 41-61-5249Hnimghuhdsl observation Gram stain Nom (Unsp spec)Specimen Description .WOUND Special Requests Site: Foot Direct Exam < 10 EPITHELIAL CELLS/LPF <10 NEUTROPHILS/LPF MIXED BACTERIAL MORPHOTYPES SEEN ON GRAM STAIN. Report Status FINAL 5AbnormalUniversity Hospitals Conneaut Medical CenterComment on above: Performed By: #### GRACIE UAX #### [facility] [address] [place] [address] Sdv Pilot/Navigator/Dds Operator: Apolinar Lemus MDHemoglobin A1Con 68-60-7706Inhiqtq glucose Estimated from glycated hemoglobin (Bld) [Mass/Vol]160 mg/dLBon [facility] Medical CenterComment on above:The ADA and AACC recommend providing the estimated average glucose result to permit better patient understanding of their HBA1c result. HbA1c (Bld) [Mass fraction]7.2 %High4.0 - 6.0 %[facility] Interpretation and review of laboratory resultsAbnormRussell County Medical CenterGlucose [Mass/Vol]160 mg/dLNoCorey Hospital Comment on above:Result Comment: The ADA and AACC recommend providing the estimated average glucose result to permit better patient understanding of their HBA1c result.Performed By: #### GLYHGB #### [facility] [employer] [address] [place] [address] Sdv Pilot/Navigator/Dds Operator: Mark Liriano MDHbA1c (Bld) [Mass fraction]7.2 %High4.0-6.0University Hospitals Conneaut Medical CenterComment on above:Performed By: #### GLYHGB #### [facility] [address] [place] [address] Sdv Pilot/Navigator/Dds Operator: Mark Liriano MDLactate, Sepsison 33-41-5857Apcdamw (BldV) [Moles/Vol]0.7 mmol/L0.5 - 1.9 mmol/LBon [facility] HospitalLactic Acid, Sepsis0.7 mmol/LNormal0.5-1.9University Hospitals Conneaut Medical CenterComment on above:Performed By: #### CMPX, CDP #### [facility] [address] [place] [address] Sdv Pilot/Navigator/Dds Operator: Apolinar Lemus MDNo Panel Informationon 39-23-6258GG right tibia/fibula and foot: 1. No acute [...] tissue gas. No focal intramuscular abnormality. Joint: Efrr-ds-kbnsdmre tricompartmental osteoarthritis of the knee joint. No [...] tissue gas. No focal intramuscular abnormality. Joint: Ytgv-eo-jekgepnc tricompartmental osteoarthritis of the knee joint. No [...] acute fracture or CT evidence of osteomyelitis. [facility] SennariNo Panel InformationOrdered By: Geovanny Melo on 08-06-2024 [facility]ennari Work Phone: Procalcitoninon 35-52-7601Bljkcslpoyimni and review of laboratory resultsAbnormalSentara Leigh HospitalProcalcitonin [Mass/Vol]0.14 ng/mLHigh0.00 - 0.09 ng/mLFauquier Health System on above: Suspected Sepsis: <0.50 ng/mL Low [...] entered into the Change in Procalcitonin Calculator (www.zudsek-qas-zfxolacitv.com) to determine the patient's Mortality Risk Prognosis In healthy neonates, plasma Procalcitonin (PCT) concentrations increase gradually after , reaching peak values at about 24 hours of age then decrease to normal values below 0.5 ng/mL by 48-72 hours of age. [facility] HospitalProcalcitonin0.14 ng/mLHigh0.00-0.09[facility] on above:Result Comment: Suspected Sepsis: [...] entered into the Change in Procalcitonin Calculator (www.ktwick-xmv-weinrdbyui.com) to determine the patient's Mortality Risk Prognosis In healthy neonates, plasma Procalcitonin (PCT) concentrations increase gradually after , reaching peak values at about 24 hours of age then decrease to normal values below 0.5 ng/mL by 48-72 hours of age.Performed By: #### CMPX, CDP #### [facility] [address] [place] [address] Sdv Pilot/Navigator/Dds Operator: SERENE Mckenzieound Gram stainon 18-43-5931Rfktigqykhfjyn and review of laboratory resultsAbnormalSentara Leigh HospitalMicroorganism or agent identified Nom (Unsp spec)< 10 EPITHELIAL CELLS/LPFAbnormalSentara Leigh HospitalMicroorganism or agent identified Nom (Unsp spec)<10 NEUTROPHILS/LPF AbnormalInova Health Systemroorganism or agent identified Nom (Unsp spec)MIXED BACTERIAL MORPHOTYPES SEEN ON GRAM STAIN.[facility] Service comment (Unsp spec) [Interp]Site: [facility] HospitalSpecimen Description.[facility] WilliamsburgCT ABDOMEN AND PELVIS W CONTon 24-00-7167LQ ABDOMEN AND PELVIS W CONTNoMagruder Memorial HospitalCT BRAIN WO CONTon 50-30-3064AN BRAIN WO CONTNormCrystal Clinic Orthopedic CenterCT CERVICAL SPINE WO CONTon 00-96-7054HK CERVICAL SPINE WO CONTNormal [facility] HospitalCT CHEST W CONTon 25-73-7629YG CHEST W CONTNormal [facility] County HospitalXR KNEE RT 3 VWSon 44-64-1738EM KNEE RT 3 VWSNoLancaster Municipal HospitalXR TIBIA FIBULA RT MIN 2 VWSon 48-33-4241GZ TIBIA FIBULA RT MIN 2 VWSXR TIBIA FIBULA RT MIN 2 VWS RIGHT TIBIA AND FIBULA 2 VIEW COMPARISON: HISTORY: . fall from bed, R lower leg pain IMPRESSION: No acute fracture or dislocation. Finalized by Ulises Carter MD on 07/25/2024 2:02 AMNormalProLake Granbury Medical Center AND AUTO DIFFon 73-97-8024UIJWRHYB BASOPHIL0.3 X10E9/LHigh0.0-0.2 ProMMarina Del Rey HospitalComment on above:Performed By: #### 2639-3, 2156-08, CBCA, 69464-1, PINR, CMP ####[facility] ([id number])[address] [place] [address] 58224ORSUAOQB NEUTROPHIL8.3 X10E9/LHigh 1.5-6.6ProBaylor Scott & White Medical Center – GrapevineComment on above:Performed By: #### 2639-3, 2156-08, CBCA, 02108-0, PINR, CMP ####[facility] ([id number])[address] [place] [address] 52015Kajxrcmox/100 WBC (Bld)2.5 % NormalMorrow County HospitalComment on above:Performed By: #### 2639-3, 2156-08, CBCA, 84014-5, PINR, CMP ####[facility] ([id number])[address] [place] [address] 42230Mflpsefbxgv (Bld) [#/Vol]0.5 10*3/uLHigh0.0-0.4M[facility] County HospitalComment on above:Performed By: #### 2639-3, 2156-08, CBCA, 44882-4, PINR, CMP ####[facility] ([id number])[address] [place] [address] 59545Wndrrkxpyoc/100 WBC (Bld)4.7 %[facility]zer Health SystemComment on above:Performed By: #### 2639-3, 6, CBCA, 63469-3, PINR, CMP ####[facility] ([id number])[address] [place] [address] 89079Ixopkqbtlgm distribution width (RBC) [Ratio]20.8 %High11.5-15.0[facility] Comment on above:Performed By: #### 2639-3, 6, CBCA, 38650-6, PINR, CMP ####[facility] ([id number])[address] [place] [address] 77500Zsoevsdzma (Bld) [Volume fraction]34.8 %Kmr15-24UomRuwlzsBaylor Scott & White Medical Center – GrapevineComment on above:Performed By: #### 2639-3, 2156-08, CBCA, 29139- 9, PINR, CMP ####[facility] ([id number])[address] [place] [address] 62797Tnaumgaibe (Bld) [Mass/Vol]11.4 g/dLLow11.7-15.5 [facility] HospitaledicProvidence Holy Cross Medical CenterComment on above:Performed By: #### 2639-3, 2156-08, CBCA, 78536-3, PINR, CMP ####[facility] ([id number])[address] [place] [address] 59412Ovmhapltxrj (Bld) [#/Vol]1.5 10*3/uL Normal1.0-3.5ProMedica Queen Of The Valley Medical CenterComment on above:Performed By: #### 2639- 3, 2156-08, CBCA, 56604-0, PINR, CMP ####[facility] ([id number] 2)[address] [place] [address] 33230Rdqpbaoxvxn/100 WBC (Bld) 13.2 %NormalMorrow County HospitalComment on above:Performed By: #### 2639- 3, 2156-08, CBCA, 00507-4, PINR, CMP ####[facility] ([id number] 2)[address] [place] [address] 11240IOU (RBC) [Entitic mass] 27.2 rwSdjqnj76-94BjeOgazetBaylor Scott & White Medical Center – GrapevineComment on above:Performed By: #### 2639-3, 2156-08, CBCA, 38326-6, PINR, CMP ####[facility] ([id number])[address] [place] [address] 04038FTCT (RBC) [Mass/Vol]32.9 g/yFDcqoft73-26PaiCmtfksBaylor Scott & White Medical Center – GrapevineComment on above: Performed By: #### 2639-3, 6, CBCA, 61089-2, PINR, CMP ####[facility] ([id number])[address] [place] [address] 03329ZAX (RBC) [Entitic vol]83 sXTrwxrf25-313XcfIfazbx Fremont HospitalComment on above: Performed By: #### 2639-3, 2156-08, CBCA, 71337-1, PINR, CMP ####[facility] ([id number])[address] [place] [address] 89041 Monocytes (Bld) [#/Vol]0.9 10*3/uLNormal0-0.9M[facility] County HospitalComment on above:Performed By: #### 2639-3, 2156-08, CBCA, 36746-7, PINR, CMP ####[facility] ([id number])[address] [place] [address] 74141Dscsnvpmu/100 WBC (Bld)8.2 %NormalProBaylor Scott & White Medical Center – GrapevineComment on above:Performed By: #### 2639-3, 2156-08, CBCA, 60488-7, PINR, CMP ####[facility] ([id number])[address] [place] [address] 61463Amsohlmyrvi/100 WBC (Bld)71.4 %NormalProBaylor Scott & White Medical Center – GrapevineComment on above:Performed By: #### 2639-3, 6, CBCA, 24743-4, PINR, CMP ####[facility] ([id number])[address] [place] [address] 88474Rvzcshbv mean volume (Bld) [Entitic vol]6.8 fLLow7-12ProMedica Queen Of The Valley Medical CenterComment on above:Performed By: #### 2639-3, 2156-08, CBCA, 10727-4, PINR, CMP ####[facility] ([id number])[address] [place] [address] 89313Qhdzkqxat (Bld) [#/Vol]465 10*3/oUFahu275-013JkiBqmnasBaylor Scott & White Medical Center – GrapevineComment on above:Performed By: #### 2639-3, 2156-08, CBCA, 67593- 9, PINR, CMP ####[facility] ([id number])[address] [place] [address] 58567AVL COUNT4.20 X10E12/LNormal3.80-5.20M[facility] County HospitalComment on above:Performed By: #### 2639-3, 2156-08, CBCA, 88018- 9, PINR, CMP ####[facility] ([id number])[address] [place] [address] 31051VTQ (Bld) [#/Vol]11.6 10*3/uLHigh4.0-11.0M[facility] County HospitalComment on above:Performed By: #### 2639-3, 2156-08, CBCA, 20599- 9, PINR, CMP ####[facility] ([id number])[address] [place] [address] 14893UB [Catalytic activity/Vol]on 51-33-6753RJP78 U/L Wummrf07-862JneSwbkezBaylor Scott & White Medical Center – GrapevineComment on above:Performed By: #### 2639- 3, 2157-6, CBCA, 20686-0, PINR, CMP ####[facility] ([id number] 2)[address] [place] [address] 02700VWDLTELWMJJPA METABOLIC PANELon 58-94-1010Gxgrydb [Mass/Vol]3.2 g/dLNormal3.2-5.3ProMedica Queen Of The Valley Medical CenterComment on above:Performed By: #### 2639-3, 2156-6, CBCA, 98462-9, PINR, CMP ####[facility] ([id number])[address] [place] [address] 21800FKG [Catalytic activity/Vol]89 U/SHwdxzj67-647ZudPmwofnMorrow County HospitalComment on above:Performed By: #### 2639-3, 2156-6, CBCA, 07951- 9, PINR, CMP ####[facility] ([id number])[address] [place] [address] 69692WWJ [Catalytic activity/Vol]15 U/LNormal0-31 [facility] HospitalComment on above:Performed By: #### 2639-3, 6, CBCA, 38583-7, PINR, CMP ####[facility] ([id number])[address] [place] [address] 88188Mnmak gap [Moles/Vol]9 mmol/LNormal5-15 [facility] HospitalComment on above:Performed By: #### 2639-3, 2156-6, CBCA, 58878-7, PINR, CMP ####[facility] ([id number])[address] [place] [address] 51128HSG [Catalytic activity/Vol]12 U/L Normal0-41M[facility] County HospitalComment on above:Performed By: #### 2639-3, 2156-6, CBCA, 20701-9, PINR, CMP ####[facility] ([id number])[address] [place] [address] 13892Lzndsmfft [Mass/Vol]0.6 mg/dL Normal0.3-1.2PCincinnati VA Medical CenterComment on above:Performed By: #### 2639- 3, 6, CBCA, 86536-1, PINR, CMP ####[facility] ([id number] 2)[address] [place] [address] 51215Mutvrhn [Mass/Vol]8.9 mg/dL Normal8.5-10.5PCincinnati VA Medical CenterComment on above:Performed By: #### 2639-3, 2156-08, CBCA, 86133-3, PINR, CMP ####[facility] ([id number])[address] [place] [address] 24418Tvwgiygd [Moles/Vol]101 mmol/YEdkosr72-469YinKpesnvBaylor Scott & White Medical Center – GrapevineComment on above: Performed By: #### 2639-3, 2156-08, CBCA, 05507-7, PINR, CMP ####[facility] ([id number])[address] [place] [address] 85971AA7 [Moles/Vol]24 mmol/OZwtjqi53-81TssPxxvqxCincinnati VA Medical CenterComment on above: Performed By: #### 2639-3, 2156-08, CBCA, 71800-0, PINR, CMP ####[facility] ([id number])[address] [place] [address] 87293 Creatinine [Mass/Vol]0.98 mg/dLNormal0.40-1.00ProBaylor Scott & White Medical Center – GrapevineComment on above:Result Comment: METHOD TRACEABLE TO IDMS STANDARDPerformed By: #### 2639-3, 6, CBCA, 23799-3, PINR, CMP ####[facility] ([id number])[address] [place] [address] 81513QFJ/1.73 sq M.predicted among non-blacks MDRD (S/P/Bld) [Vol rate/Area]64 mL/min/{1.73_m2} Normal>59ProBaylor Scott & White Medical Center – GrapevineComment on above:Result Comment: Reported eGFR is based on theCKD-EPI 2020 equation that doesnot use a race coefficient. Performed By: #### 2639-3, 2156-08, CBCA, 36099-1, PINR, CMP ####[facility] ([id number])[address] [place] [address] 87660Ynwnwjx [Mass/Vol]96 mg/eHQobkzb67-67NmtIceaheBaylor Scott & White Medical Center – GrapevineComment on above: Performed By: #### 2639-3, 2156-08, CBCA, 75881-8, PINR, CMP ####[facility] ([id number])[address] [place] [address] 36544 Potassium [Moles/Vol]3.5 mmol/LNormal3.5-5.0ProBaylor Scott & White Medical Center – GrapevineComment on above:Performed By: #### 2639-3, 2156-08, CBCA, 80549-1, PINR, CMP ####[facility] ([id number])[address] [place] [address] 76361Lquighp [Mass/Vol]6.5 g/dLNormal6.0-8.0ProBaylor Scott & White Medical Center – GrapevineComment on above:Performed By: #### 9-3, 2156-08, CBCA, 78725-3, PINR, CMP ####[facility] ([id number])[address] [place] [address] 23063Crwjvd [Moles/Vol]134 mmol/GFsgnos112-598WvqXiofai [facility]ont HospitalComment on above:Performed By: #### 2639-3, 2156-08, CBCA, 35878-0, PINR, CMP ####[facility] ([id number])[address] [place] [address] 77796Xmbf nitrogen [Mass/Vol]12 mg/dLNormal5-27ProBaylor Scott & White Medical Center – GrapevineComment on above:Performed By: #### 2639-3, 2156-6, CBCA, 33843-2, PINR, CMP ####[facility] ([id number])[address] [place] [address] 69557Djsxzqmbc [Mass/Vol]on 98-62-2091TGFZU LSQGRQHLB38.7 ng/mL Jtxfux17.3-65.8ProBaylor Scott & White Medical Center – GrapevineComment on above:Performed By: #### 2639-3, 2156-6, CBCA, 53294-3, PINR, CMP ####[facility] ([id number])[address] [place] [address] 62358ADUTHNS AND INRon 22-42-7694GGL Coag (PPP) [Relative time]1.0 {INR}Normal0.9-1.2PCincinnati VA Medical CenterComascension standish hospital on above:Performed By: #### 2639-3, 6, CBCA, 66997-2, PINR, CMP ####[facility] ([id number])[address] [place] [address] 31583LC Coag (PPP) [Time]11.5 sNormal9.8-13.2PCincinnati VA Medical CenterComascension standish hospital on above:Result Comment: NEW REFERENCE RANGEPerformed By: #### 2639-3, 2156-6, CBCA, 39574-9, PINR, CMP ####[facility] ([id number])[address] [place] [address] 78547zHEA Coag (PPP) [Time]on 91-97-9619zKUE Coag (Bld) [Time]31 rQyakbw74-53WeyUaywptBaylor Scott & White Medical Center – GrapevineComascension standish hospital on above:Result Comment: NEW REFERENCE RANGEPerformed By: #### 2639-3, 2156-6, CBCA, 53081-9, PINR, CMP ####[facility] ([id number])[address] [place] [address], [place] [address]BNB AND AUTO DIFF on 25-91-6077BDLGWAOI BASOPHIL0.0 X10E9/LNormal0.0-0.2PTulane University Medical Centerica [facility] Comment on above:Performed By: #### 71657-8, CMP, CBCA ####[facility] ([id number])[address] [place] [address] 76568RXCIKZXW LDBAFRPADO76.7 X10E9/LHigh1.5-6.6ProBaylor Scott & White Medical Center – GrapevineComment on above: Performed By: #### 38930-9, CMP, CBCA ####[facility] ([id number])[address] [place] [address] 63210Apkugdeen/100 WBC (Bld)0.1 %NormalProBaylor Scott & White Medical Center – GrapevineComment on above:Performed By: #### 05087-9, CMP, CBCA ####[facility] ([id number])[address] [place] [address] 88305Fyhjmlctomz (Bld) [#/Vol]0.0 10*3/uLNormal 0.0-0.4M[facility] County HospitalComment on above:Performed By: #### 04960-4, CMP, CBCA ####[facility] ([id number])[address] [place] [address] 18511Lmydfjbnwvj/100 WBC (Bld)0.0 %NormalProBaylor Scott & White Medical Center – GrapevineComment on above:Performed By: #### 79921-8, CMP, CBCA ####[facility] ([id number])[address] [place] [address] 76903Fwftckkeabr distribution width (RBC) [Ratio]20.8 %High11.5-15.0ProBaylor Scott & White Medical Center – GrapevineComment on above:Performed By: #### 10370-0, CMP, CBCA ####[facility] ([id number])[address] [place] [address] 06772Gwfdwqjzih (Bld) [Volume fraction]36.0 %Qowniy90-73 ProMMarina Del Rey HospitalComment on above:Performed By: #### 25854-1, CMP, CBCA ####[facility] ([id number])[address] [place] [address] 78858Rnxilvmxdo (Bld) [Mass/Vol]11.6 g/dLLow11.7-15.5PCincinnati VA Medical CenterComment on above:Performed By: #### 99118-1, CMP, CBCA ####[facility] ([id number])[address] [place] [address] 75451Jzizjnyzivl (Bld) [#/Vol]0.4 10*3/uLLow1.0-3.5PCincinnati VA Medical CenterComment on above:Performed By: #### 45747-4, CMP, CBCA ####[facility] ([id number])[address] [place] [address] 25431Ytwmqfprsjf/100 WBC (Bld)3.1 %NormalMorrow County HospitalComment on above:Performed By: #### 46340-6, CMP, CBCA ####[facility] ([id number])[address] [place] [address] 26271VJL (RBC) [Entitic mass]26.9 qlMrd46-15NgwMsirssBaylor Scott & White Medical Center – GrapevineComment on above:Performed By: #### 33432-0, CMP, CBCA ####[facility] ([id number])[address] [place] [address] 62797WLWQ (RBC) [Mass/Vol]32.3 g/fNEogpab94-83PesIkerpbBaylor Scott & White Medical Center – GrapevineComment on above: Performed By: #### 44384-9, CMP, CBCA ####[facility] ([id number])[address] [place] [address], [place] [address]VGT (RBC) [Entitic vol]83 xPLksylp22-477WmwTwvuksMorrow County HospitalComment on above: Performed By: #### 61627-3, CMP, CBCA ####[facility] ([id number])[address] [place] [address] 02348Wchqtexez (Bld) [#/Vol]0.2 10*3/uLNormal0-0.9M[facility] County HospitalComment on above: Performed By: #### 28461-0, CMP, CBCA ####[facility] ([id number])[address] [place] [address] 93201Hqbnihfef/100 WBC (Bld)1.4 %NormalMorrow County HospitalComment on above:Performed By: #### 26355-0, CMP, CBCA ####[facility] ([id number])[address] [place] [address] [place] [address]Xyuxjrsdjqy/100 WBC (Bld)95.4 %Normal [facility] HospitalComment on above:Performed By: #### 86917-7, CMP, CBCA ####[facility] ([id number])[address] [place] [address] 37114Cvjbvuhk mean volume (Bld) [Entitic vol]7.0 fLNormal7-12 [facility] HospitalComment on above:Performed By: #### 03471-8, CMP, CBCA ####[facility] ([id number])[address] [place] [address] [place] 40[address]Ldoctmyzn (Bld) [#/Vol]295 10*3/zOCrfvrf343-184CetFexddu [facility]ont HospitalComment on above:Performed By: #### 24554-8, CMP, CBCA ####[facility] ([id number])[address] [place] [address] 60142PIN COUNT4.32 X10E12/LNormal3.80-5.20ProBaylor Scott & White Medical Center – GrapevineComment on above:Performed By: #### 54035-3, CMP, CBCA ####[facility] ([id number])[address] [place] [address] 61893LZE (Bld) [#/Vol]14.4 10*3/uLHigh4.0-11.0ProBaylor Scott & White Medical Center – GrapevineComment on above:Performed By: #### 39911-8, CMP, CBCA ####[facility] ([id number])[address] [place] [address] 73459GPPVSSYBFXZPS METABOLIC PANELon 14-50-8001Knybvuy [Mass/Vol]2.7 g/dLLow3.2-5.3PCincinnati VA Medical CenterComment on above:Performed By: #### 16961-8, CMP, CBCA ####[facility] ([id number])[address] [place] [address] 42612KYK [Catalytic activity/Vol]84 U/UGkbmof63-169RosRhidjxMorrow County HospitalComment on above:Performed By: #### 81390-2, CMP, CBCA ####[facility] ([id number])[address] [place] [address] 50275YMN [Catalytic activity/Vol]10 U/LNormal0-31PCincinnati VA Medical CenterComment on above:Performed By: #### 85931-3, CMP, CBCA ####[facility] ([id number])[address] [place] [address] 15900Ttnup gap [Moles/Vol]12 mmol/LNormal5-15ProBaylor Scott & White Medical Center – GrapevineComment on above:Performed By: #### 48248-1, CMP, CBCA ####[facility] ([id number])[address], [place], [place] [address]TSA [Catalytic activity/Vol]12 U/LNormal0-41[facility] Comment on above:Performed By: #### 36903-3, CMP, CBCA ####[facility] ([id number])[address] [place] [address], [place] [address] Bilirubin [Mass/Vol]0.3 mg/dLNormal0.3-1.2PCincinnati VA Medical CenterComment on above:Performed By: #### 29489-4, CMP, CBCA ####[facility] ([id number])[address] [place] [address], [place] [address]Vvgelta [Mass/Vol]8.1 mg/dLLow8.5-10.5PCincinnati VA Medical CenterComment on above: Performed By: #### 16560-9, CMP, CBCA ####[facility] ([id number])[address] [place] [address], [place] [address]Rigldwqm [Moles/Vol]99 mmol/MTnajmv92-410HmeNpgjhpBaylor Scott & White Medical Center – GrapevineComment on above: Performed By: #### 48352-5, CMP, CBCA ####[facility] ([id number])[address] [place] [address], [place] [address]OO4 [Moles/Vol]24 mmol/JUsubeu42-78ErmTihaayCincinnati VA Medical CenterComment on above:Performed By: #### 16038-4, CMP, CBCA ####[facility] ([id number])[address] [place] [address], [place] [address]Nxwuksgsko [Mass/Vol]0.74 mg/dLNormal 0.40-1.00Morrow County HospitalComment on above:Result Comment: METHOD TRACEABLE TO IDMS STANDARDPerformed By: #### 23649-4, CMP, CBCA ####[facility] ([id number])[address] [place] [address], [place] [address]tVTW (CKD-EPI) NON-RACE DEPENDENT>90Normal>59ProBaylor Scott & White Medical Center – [place]rapevine Comment on above:Result Comment: Reported eGFR is based on theCKD-EPI 2020 equation that doesnot use a race coefficient.Performed By: #### 34830-3YULISA, PRIYANK ####[facility] ([id number])[address] [place] [address], [place] [address]346Eisnrdx [Mass/Vol]208 mg/kMUbiy54-10IyjJjzbogBaylor Scott & White Medical Center – GrapevineComment on above:Performed By: #### 77623-1, CMP, CBCA ####[facility] ([id number])[address] [place] [address] 85066Blvvkhwnb [Moles/Vol]4.3 mmol/LNormal3.5-5.0[facility] Comment on above:Performed By: #### 77579-2YULISA, PRIYANK ####[facility] ([id number])[address] [place] [address] 93662Ftdkkpe [Mass/Vol]6.1 g/dLNormal6.0-8.0ProBaylor Scott & White Medical Center – GrapevineComment on above: Performed By: #### 13952-6YULISA, CBCA ####[facility] ([id number])[address] [place] [address] 97182Feaatz [Moles/Vol]135 mmol/YQnjwhg708-697HasIymung [facility]remont HospitalComment on above: Performed By: #### 95479-0, YULISA, CBCA ####[facility] ([id number])[address] [place] [address] 03423Wijg nitrogen [Mass/Vol]23 mg/dLNormal5-27ProBaylor Scott & White Medical Center – GrapevineComment on above:Performed By: #### 37858-6, YULISA, CBCA ####[facility] ([id number])[address] [place] [address], [place] 39193XVG [Mass/Vol]on 07-16-2024 REACTIVE PROTEIN2.9 mg/dLHigh0.000-0.744PCincinnati VA Medical CenterComment on above: Performed By: #### 1987-07, 4091-05 ####[facility] ([id number])[address] [place] [address] 72918Jfoetfz Glucometer (BldC) [Mass/Vol]on 14-23-7464Ggokahc [Mass/Vol]231 mg/eHXhhh35-25BfvEjjacvBaylor Scott & White Medical Center – GrapevineGlucose [Mass/Vol]219 mg/wZPnfc36-81JceJgmutsBaylor Scott & White Medical Center – GrapevineMAGNESIUM on 52-77-0133Qjgyqckau [Mass/Vol]2.3 mg/dLNormal1.8-2.6ProBaylor Scott & White Medical Center – GrapevineComment on above:Performed By: #### , CMP, CBCA ####[facility] ([id number])[address] [place] [address] 41596Swekuxsskw trough [Mass/Vol]on 88-13-8489RKGPMQQNIH VPBPSQ48.6 ug/mLNormal 5.0-20.0ProBaylor Scott & White Medical Center – GrapevineComment on above:Performed By: #### 1987-07, 4091-05 ####[facility] ([id number])[address] [place] [address] 59102XAM AND AUTO DIFFon 18-20-0141YVNUCKKS BASOPHIL0.0 X10E9/L Normal0.0-0.2PCincinnati VA Medical CenterComment on above:Performed By: #### , , CBCA, CMP, 66829-2 ####[facility] ([id number])[address] [place] [address] 43481NLAPUEMG PHJHNFGYUR68.4 X10E9/L High1.5-6.6ProBaylor Scott & White Medical Center – GrapevineComment on above:Performed By: #### 1987-07, , CBCA, CMP, 49254-5 ####[facility] ([id number])[address] [place] [address] 94712Inxkfzric/100 WBC (Bld)0.2 %Normal [facility] HospitalComment on above:Performed By: #### 1987-07, , CBCA, CMP, 69837-6 ####[facility] ([id number])[address] [place] [address] 51657Dayplosogrk (Bld) [#/Vol]0.0 10*3/uLNormal 0.0-0.4[facility] HospitalComment on above:Performed By: #### 1987-07, , CBCA, CMP, 36428-9 ####[facility] ([id number])[address] [place] [address] 91190Aamungmztwe/100 WBC (Bld)0.0 %Normal [facility] HospitalComment on above:Performed By: #### 1987-07, , CBCA, CMP, 48472-9 ####[facility] ([id number])[address] [place] [address] 76827Cepbmplkugl distribution width (RBC) [Ratio] 20.1 %High11.5-15.0ProBaylor Scott & White Medical Center – GrapevineComment on above:Performed By: #### 1987-07, , CBCA, CMP, 33652-9 ####[facility] ([id number])[address] [place] [address] 49125Lykmbcjeoa (Bld) [Volume fraction]34.4 %Oul73-74NewSqjtnwBaylor Scott & White Medical Center – GrapevineComment on above: Performed By: #### 1987-07, , CBCA, CMP, 61825-8 ####[facility] ([id number])[address] [place] [address] 99140 Hemoglobin (Bld) [Mass/Vol]11.0 g/dLLow11.7-15.5PCincinnati [facility] Comment on above:Performed By: #### 1987-07, , CBCA, CMP, 50452-8 ####[facility] ([id number])[address] [place] [address] 66520Trpbveavugv (Bld) [#/Vol]0.4 10*3/uLLow1.0-3.5PCincinnati VA Medical CenterComment on above:Performed By: #### 1987-07, , CBCA, CMP, 64408-4 ####[facility] ([id number])[address] [place] [address] 93225Pbyktwvgzpw/100 WBC (Bld)2.1 %NormalProBaylor Scott & White Medical Center – GrapevineComment on above:Performed By: #### 1987-07, , CBCA, CMP, 89418-2 ####[facility] ([id number])[address] [place] [address] 70573VBA (RBC) [Entitic mass]26.9 dbDsw85-49QnqFppqkjBaylor Scott & White Medical Center – GrapevineComment on above:Performed By: #### 1987-07, , CBCA, CMP, 02789-7 ####[facility] ([id number])[address] [place] [address] 25197VNAE (RBC) [Mass/Vol]31.9 g/cBQrx27-97ElzYvawumBaylor Scott & White Medical Center – GrapevineComment on above:Performed By: #### 1987-07, , CBCA, CMP, 63421-9 ####[facility] ([id number])[address] [place] [address] 03160SYP (RBC) [Entitic vol]84 lZUgrjdb17-478CssQlwrsq [facility]ont HospitalComment on above:Performed By: #### 1987-07, , CBCA, CMP, 18165-9 ####[facility] ([id number])[address] [place] [address] 44118Esoirjasf (Bld) [#/Vol]0.3 10*3/uLNormal0-0.9ProBaylor Scott & White Medical Center – GrapevineComment on above:Performed By: #### 1987-07, , CBCA, CMP, 16076-8 ####[facility] ([id number])[address] [place] [address] 29984Xpjbjxven/100 WBC (Bld)1.6 %NormalProBaylor Scott & White Medical Center – GrapevineComment on above:Performed By: #### 1987-07, , CBCA, CMP, 10474-6 ####[facility] ([id number])[address] [place] [address] 46573Jnkhzeqquhh/100 WBC (Bld)96.1 %NormalProBaylor Scott & White Medical Center – GrapevineComment on above:Performed By: #### 1987-07, , CBCA, CMP, 94558-0 ####[facility] ([id number])[address] [place] [address] 87662Ansixcdz mean volume (Bld) [Entitic vol]7.0 fLNormal7-12 [facility] Medical CenterComment on above:Performed By: #### 1987-07, , CBCA, CMP, 22366-3 ####[facility] ([id number])[address] [place] [address] 51667Mzuwpgksq (Bld) [#/Vol]290 10*3/uLNormal 150-450ProBaylor Scott & White Medical Center – GrapevineComment on above:Performed By: #### 1987-07, , CBCA, CMP, 68302-6 ####[facility] ([id number])[address] [place] [address] 66984TDX COUNT4.09 X10E12/LNormal3.80-5.20 [facility] HospitalComment on above:Performed By: #### 1987-07, , CBCA, CMP, 91970-1 ####[facility] ([id number])[address] [place] [address] 64617PMM (Bld) [#/Vol]19.1 10*3/uLHigh4.0-11.0 [facility] HospitalComment on above:Performed By: #### 1987-07, , CBCA, CMP, 98428-9 ####[facility] ([id number])[address] [place] [address] 44690ZQTIUCKUXFJOI METABOLIC PANELon 07-15-2024 Albumin [Mass/Vol]2.6 g/dLLow3.2-5.3PCincinnati VA Medical CenterComment on above: Performed By: #### 1987-07, , CBCA, CMP, 47820-7 ####[facility] ([id number])[address] [place] [address] 65672GOE [Catalytic activity/Vol]87 U/XWfmtld51-938SqvGdggyuMorrow County HospitalComment on above:Performed By: #### 1987-07, , CBCA, CMP, 66978-2 ####[facility] ([id number])[address] [place] [address] 69961HGR [Catalytic activity/Vol]13 U/LNormal0-31[facility] Comment on above:Performed By: #### 1987-07, , CBCA, CMP, 86608-0 ####[facility] ([id number])[address] [place] [address] 55856Oznit gap [Moles/Vol]10 mmol/LNormal5-15ProBaylor Scott & White Medical Center – GrapevineComment on above:Performed By: #### 1987-07, , CBCA, CMP, 83832-1 ####[facility] ([id number])[address] [place] [address] 34418TLA [Catalytic activity/Vol]13 U/LNormal0-41ProBaylor Scott & White Medical Center – GrapevineComment on above:Performed By: #### 1987-07, , CBCA, CMP, 18565-3 ####[facility] ([id number])[address] [place] [address] 43477Ugsvhcnce [Mass/Vol]0.4 mg/dLNormal0.3-1.2PCincinnati VA Medical CenterComment on above:Performed By: #### 1987-07, , CBCA, CMP, 28873-6 ####[facility] ([id number])[address] [place] [address] 95551Obzddso [Mass/Vol]8.0 mg/dLLow8.5-10.5PCincinnati VA Medical CenterComment on above:Performed By: #### 1987-07, , CBCA, CMP, 64672-8 ####[facility] ([id number])[address] [place] [address] 67712Pmhpazxp [Moles/Vol]98 mmol/ZDrxgwa95-584BqmJffngwBaylor Scott & White Medical Center – GrapevineComment on above:Performed By: #### 1987-07, , CBCA, CMP, 67397-6 ####[facility] ([id number])[address] [place] [address] 32481IT9 [Moles/Vol]28 mmol/DFuyypb03-97LceUeulbjCincinnati VA Medical CenterComment on above:Performed By: #### 1987-07, , CBCA, CMP, 39412-9 ####[facility] ([id number])[address] [place] [address] 26330Ukuiictuoo [Mass/Vol]0.70 mg/dLNormal0.40-1.00[facility] HospitalComment on above:Result Comment: METHOD TRACEABLE TO IDMS STANDARDPerformed By: #### 1987-07, , CBCA, CMP, 89264-7 ####[facility] ([id number])[address] [place] [address] 31699tONY (CKD-EPI) NON-RACE DEPENDENT>90Normal>59ProBaylor Scott & White Medical Center – Grapevine Comment on above:Result Comment: Reported eGFR is based on theCKD-EPI 2020 equation that doesnot use a race coefficient.Performed By: #### 1987-07, , CBCA, CMP, 92574-3 ####[facility] ([id number])[address] [place] [address] 20696Glzwnov [Mass/Vol]193 mg/lQOwch39-39 [facility] HospitalComment on above:Performed By: #### 1987-07, , CBCA, CMP, 98627-1 ####[facility] ([id number])[address] [place] [address] 73043Xxboqjdqp [Moles/Vol]4.5 mmol/LNormal3.5-5.0 [facility] HospitalComment on above:Performed By: #### 1987-07, , CBCA, CMP, 92343-5 ####[facility] ([id number])[address] [place] [address] 92672Cagpxxu [Mass/Vol]6.0 g/dLNormal6.0-8.0 [facility] HospitalComment on above:Performed By: #### 1987-07, , CBCA, CMP, 90534-1 ####[facility] ([id number])[address] [place] [address] 13530Izyxfa [Moles/Vol]136 mmol/MQrnkhb538-959 [facility] HospitalComment on above:Performed By: #### 1987-07, , CBCA, CMP, 09254-4 ####[facility] ([id number])[address] [place] [address] 58974Swkq nitrogen [Mass/Vol]16 mg/dLNormal5-27 [facility] HospitalComment on above:Performed By: #### 1987-07, , CBCA, CMP, 40994-8 ####[facility] ([id number])[address] [place] [address] 25565XZQ [Mass/Vol]on 07-15-2024 REACTIVE PROTEIN6.9 mg/dLHigh0.000-0.[address] [place], [place] [address]Comment on above: Performed By: #### 1987-07, , CBCA, CMP, 37922-5 ####[facility] ([id number])[address] [place] [address] 10096Drxrtfn Glucometer (BldC) [Mass/Vol]on 00-21-3038Nclnljn [Mass/Vol]244 mg/xDDkxe76-52 [facility] HospitalGlucose [Mass/Vol]201 mg/aGYysg96-59KwbArwcrxMorrow County HospitalGlucose [Mass/Vol]155 mg/qFCaij48-67MqxLcfoemBaylor Scott & White Medical Center – GrapevineMAGNESIUM on 90-89-0215Hjgrpheyj [Mass/Vol]2.2 mg/dLNormal1.8-2.6[facility] HospitalComment on above:Performed By: #### 1987-07, , CBCA, CMP, 37832-5 ####[facility] ([id number])[address] [place] [address] 84953AZ FOOT LT W WO CONTon 48-27-9668VH FOOT LT W WO CONT NormalMorrow County HospitalMR FOOT RT W WO CONTon 78-38-6696UP FOOT RT W WO CONTHolzer Health SystemMR LOWER LEG LT W WO CONTon 74-32-2435OH LOWER LEG LT W WO CONTHolzer Health SystemMR LOWER LEG RT W WO CONT on 36-79-3682NR LOWER LEG RT W WO CONTHolzer Health System Procalcitonin IA [Mass/Vol]on 38-58-8772IIQIDWWATZCHE1.08 ng/mLHigh<0.05 [facility] HospitalComment on above:Result Comment: NOTE<0.50 ng/mL - Low risk of severe sepsis and/or septic shock.<2.00 ng/mL -Recommend retesting within 6-24 hours.>2.00 ng/mL - High risk of sepsis and/or septic shock. Performed By: #### 1988-5, , CBCA, CMP, 32745-2 ####[facility] ([id number])[address] [place] [address] 48319 Vancomycin peak [Mass/Vol]on 67-55-6429RCOMFADKEK PEAK41.5 ug/rIQnqx76.00-40.00 [facility] HospitalComment on above:Performed By: #### 4090-7 ####[facility] ([id number])[address] [place] [address] 32542HPS AND AUTO DIFFon 85-79-4869UEQJTKPD BASOPHIL0.0 X10E9/LNormal0.0-0.2 [facility] HospitalComment on above:Performed By: #### CMP, CBCA, ####[facility] ([id number])[address] [place] [address] 50755ZAGQXMMO KZGTLSBWKL19.7 X10E9/LHigh1.5-6.6[facility] HospitalComment on above:Performed By: #### CMP, CBCA, ####[facility] ([id number])[address] [place] [address] 01458Fqoajjplt/100 WBC (Bld)0.1 %NormalMorrow County HospitalComment on above:Performed By: #### CMP, CBCA, ####[facility] ([id number])[address] [place] [address] 98351Jyrlrfzmllt (Bld) [#/Vol]0.0 10*3/uLNormal0.0-0.4[facility] Comment on above:Performed By: #### CMP, CBCA, ####[facility] ([id number])[address] [place] [address] 87557 Eosinophils/100 WBC (Bld)0.0 %[facility]zer Health SystemComment on above: Performed By: #### CMP, CBCA, ####[facility] ([id number])[address] [place] [address] 21834Qybgdzhzwcf distribution width (RBC) [Ratio]20.9 %High11.5-15.0[facility] Comment on above:Performed By: #### YULISA, CBCA, ####[facility] ([id number])[address] [place] [address] 06862 Hematocrit (Bld) [Volume fraction]35.6 %Rejbwz07-98KhbCriksoMorrow County Hospital Comment on above:Performed By: #### CMP, CBCA, ####[facility] ([id number])[address] [place] [address] 52891 Hemoglobin (Bld) [Mass/Vol]11.3 g/dLLow11.7-15.5[facility] Comment on above:Performed By: #### CMP, CBCA, ####[facility] ([id number])[address] [place] [address] 02099 Lymphocytes (Bld) [#/Vol]0.3 10*3/uLLow1.0-3.5[facility] Medical CenterComment on above:Performed By: #### CMP, CBCA, ####[facility] ([id number])[address] [place] [address] 40339Psadutimjoq/100 WBC (Bld)2.3 %NormalProBaylor Scott & White Medical Center – GrapevineComment on above:Performed By: #### CMP, CBCA, ####[facility] ([id number])[address] [place] [address] 57302DJO (RBC) [Entitic mass]26.8 mnBvf04-04 [facility] Medical CenterComment on above:Performed By: #### CMP, CBCA, ####[facility] ([id number])[address] [place] [address] 80115SMRV (RBC) [Mass/Vol]31.8 g/oQQgr13-92TebBdjortBaylor Scott & White Medical Center – GrapevineComment on above:Performed By: #### CMP, CBCA, ####[facility] ([id number])[address] [place] [address] 20505GDZ (RBC) [Entitic vol]85 fYKgbpbp65-142OrhTfxeyhMorrow County HospitalComment on above:Performed By: #### CMP, CBCA, ####[facility] ([id number])[address] [place] [address] 86764Rbgpogleg (Bld) [#/Vol]0.1 10*3/uLNormal0-0.9[facility] HospitalComment on above: Performed By: #### CMP, CBCA, ####[facility] ([id number])[address] [place] [address] 08184Qpaijxptt/100 WBC (Bld)0.7 %NormalMorrow County HospitalComment on above:Performed By: #### CMP, CBCA, ####[facility] ([id number])[address] [place] [address] 12058Kaapqncsmyn/100 WBC (Bld)96.9 %Normal [facility] HospitalComment on above:Performed By: #### YULISA, CBCA, ####[facility] ([id number])[address] [place] [address] 61981Oogjbryb mean volume (Bld) [Entitic vol]7.1 fLNormal7-12 [facility] HospitalComment on above:Performed By: #### YULISA, CBCA, ####[facility] ([id number])[address] [place] [address] 42863Ofbyvsxlg (Bld) [#/Vol]252 10*3/cMYrtarf595-314PzeQzhxoj [facility] HospitalComment on above:Performed By: #### YULISA, CBCA, ####[facility] ([id number])[address] [place] [address] 50355IYH COUNT4.21 X10E12/LNormal3.80-5.20[facility] HospitalComment on above:Performed By: #### YULISA, CBCA, ####[facility] ([id number])[address] [place] [address] 22637QNR (Bld) [#/Vol]14.2 10*3/uLHigh4.0-11.0[facility] HospitalComment on above:Performed By: #### YULISA, CBCA, ####[facility] ([id number])[address] [place] [address] 27659RIEUDSIOYWIOU METABOLIC PANELon 92-27-8162Gmhqqpt [Mass/Vol]2.7 g/dLLow3.2-5.3PCincinnati VA Medical CenterComment on above:Performed By: #### PRIYANK MÁRQUEZ, ####[facility] ([id number])[address] [place] [address], [place] 99201EEG [Catalytic activity/Vol]93 U/QHohpal01-124HluKwigofBaylor Scott & White Medical Center – GrapevineComment on above:Performed By: #### YULISA CBCAriana, ####[facility] ([id number])[address] [place] [address], [place] 42625MHP [Catalytic activity/Vol]14 U/LNormal0-31PC[facility]innati [facility] Medical CenterComment on above:Performed By: #### PRIYANK MÁRQUEZ, ####[facility] ([id number])[address] [place] [address], [place] 77572Eipuc gap [Moles/Vol]10 mmol/LNormal5-15ProBaylor Scott & White Medical Center – GrapevineComment on above:Performed By: #### YULISA CBCAriana, ####[facility] ([id number])[address] [place] [address], [place] 70090KPC [Catalytic activity/Vol]11 U/LNormal0-41ProBaylor Scott & [facility] Comment on above:Performed By: #### PRIYANK MÁRQUEZ, ####[facility] ([id number])[address] [place] [address], [place] [address] Bilirubin [Mass/Vol]0.4 mg/dLNormal0.3-1.2PCincinnati VA Medical CenterComment on above:Performed By: #### YULISA CBCA, ####[facility] ([id number])[address] [place] [address], [place] 95520Nneeiwk [Mass/Vol]8.0 mg/dLLow8.5-10.5PCincinnati VA Medical CenterComment on above: Performed By: #### YULISA CBCAriana, ####[facility] ([id number])[address] [place] [address], [place] 76998Nxkevzmq [Moles/Vol]103 mmol/NMwqyko23-341EbzSwwnarBaylor Scott & White Medical Center – GrapevineComment on above: Performed By: #### PRIYANK MÁRQUEZ, ####[facility] ([id number])[address] [place] [address], [place] 25045CB0 [Moles/Vol]25 mmol/GKwjsre96-57RcsScgbtp [facility] HospitalComment on above:Performed By: #### PRIYANK MÁRQUEZ, ####[facility] ([id number])[address] [place] [address], [place] 49028Otcjtiyeub [Mass/Vol]0.73 mg/dLNormal 0.40-1.00[facility] HospitalComment on above:Result Comment: METHOD TRACEABLE TO IDMS STANDARDPerformed By: #### PRIYANK MÁRQUEZ, ####[facility] ([id number])[address] [place] [address], [place] 41383cHZM (CKD-EPI) NON-RACE DEPENDENT>90Normal>59ProBaylor Scott & White Medical Center – [facility] Comment on above:Result Comment: Reported eGFR is based on theCKD-EPI 2020 equation that doesnot use a race coefficient.Performed By: #### PRIYANK MÁRQUEZ, ####[facility] ([id number])[address] [place] [address], [place] [address]Xtvhgkd [Mass/Vol]271 mg/sGWmdf68-18McdYolwuaBaylor Scott & White Medical Center – GrapevineComment on above:Performed By: #### PRIYANK MÁRQUEZ, ####[facility] ([id number])[address] [place] [address] [place] [address]Umjdksbvg [Moles/Vol]4.0 mmol/LNormal3.5-5.0[facility] Comment on above:Performed By: #### PRIYANK MÁRQUEZ, ####[facility] ([id number])[address] [place] [address]Laemmrb [Mass/Vol]6.1 g/dLNormal6.0-8.0ProBaylor Scott & White Medical Center – GrapevineComment on above: Performed By: #### PRIYANK MÁRQUEZ, ####[facility] ([id number])[address] [place] [address]1Pzcqea [Moles/Vol]138 mmol/UQxkhub505-942UipWshktu [facility]remont HospitalComment on above: Performed By: #### PRIYANK MÁRQUEZ, ####[facility] ([id number])[address] [place] [address]Piei nitrogen [Mass/Vol]13 mg/dLNormal5-27ProBaylor Scott & White Medical Center – GrapevineComment on above:Performed By: #### PRIYANK MÁRQUEZ, ####[facility] ([id number])[address] [place] [address]Qefbinl Glucometer (BldC) [Mass/Vol]on 29-61-4451Kzcydbj [Mass/Vol]166 mg/gNFptd70-73MclYnulywMorrow County HospitalGlucose [Mass/Vol]255 mg/nWAtem12-45EqfTeshccMorrow County HospitalGlucose [Mass/Vol]276 mg/jBWjua81-69ObbHzjdxcMorrow County HospitalMAGNESIUMon 64-80-2772Igxjcvnkg [Mass/Vol]2.1 mg/dLNormal1.8-2.6M[facility] County HospitalComment on above: Performed By: #### PRIYANK MÁRQUEZ, ####[facility] ([id number])[address] [place] [address]PNQCD METABOLIC PANLon 38-75-4372Hnllp gap [Moles/Vol]9 mmol/LNormal5-15ProBaylor Scott & White Medical Center – GrapevineComment on above:Performed By: #### PRIYANK, 92693-7, BMP ####[facility] ([id number])[address] [place] [address]#### HA1C ####[facility] ([id number])[address], [place] [address]Zdjackz [Mass/Vol]8.6 mg/dLNormal8.5-10.5PCincinnati VA Medical CenterComment on above:Performed By: #### PRIYANK, 18064-5, BMP ####[facility] ([id number])[address] [place] [address]#### HA1C ####[facility] ([id number])[address] [place] [address]Fgzgckoz [Moles/Vol]103 mmol/ZFpbphe61-208QprVudlwvBaylor Scott & White Medical Center – GrapevineComment on above:Performed By: #### PRIYANK, 69930-1, BMP ####[facility] ([id number])[address] [place] [address]#### HAJp ####[facility] ([id number])[address], [address] [place] [address]MV3 [Moles/Vol]25 mmol/L Dnndlg63-22PcpLmbuvoCincinnati VA Medical CenterComment on above:Performed By: #### PRIYANK, 64259-9, BMP ####[facility] ([id number])[address] [place] [address]#### HA1C ####[facility] ([id number])[address] [address]Dtnhfsygip [Mass/Vol]0.79 mg/dLNormal0.40-1.00ProBaylor Scott & White Medical Center – GrapevineComment on above:Result Comment: METHOD TRACEABLE TO IDMS STANDARDPerformed By: #### PRIYANK, 80009-9, BMP ####[facility] ([id number])[address] [place] [address]#### HA1C ####[facility] ([id number])[address], [place] 79486UEZ/1.73 sq M.predicted among non-blacks MDRD (S/P/Bld) [Vol rate/Area]83 mL/min/{1.73_m2}Normal>59 [facility] Valley Medical CenterComment on above:Result Comment: Reported eGFR is based on theCKD-EPI 2020 equation that doesnot use a race coefficient.Performed By: #### PRIYANK 87610-3, BMP ####[facility] ([id number])[address] [place] [address] 99168#### HAJp ####[facility] ([id number])[address], [address] [place] [address] 42210Ssorwjn [Mass/Vol]104 mg/lJKdak72-96KhbZfxnqq [facility] CenterComment on above:Performed By: #### PRIYANK 23145-1, BMP ####[facility] ([id number])[address] [place] [address] 96755#### HApJ ####[facility] ([id number])[address], [address] [place] [address] 38603Xidrwpsra [Moles/Vol]3.7 mmol/LNormal3.5-5.0Pro[facility] CenterComment on above:Performed By: #### PRIYANK 94571-8, BMP ####[facility] ([id number])[address] [place] [address] 99374#### HA1C ####[facility] ([id number])[address], [address], [place] [address]Knbmim [Moles/Vol]137 mmol/EXqlswe448-714ZfvWocwga Edwards HospitalComment on above:Performed By: #### CBCAriana, 46488-6, BMP ####[facility] ([id number])[address] [place] [address] 87386#### HA1C ####[facility] ([id number])[address], [address] [place] [address] 84178Kvtp nitrogen [Mass/Vol]9 mg/dLNormal5-27ProBaylor Scott & White Medical Center – GrapevineComment on above:Performed By: #### CBCA, 27472-1, BMP ####[facility] ([id number])[address] [place] [address] 03266#### HA1C ####[facility] ([id number])[address], [address] [place] [address] 83894WCXPA CULTUREon 07-13-2024 Bacteria identified Aer cx Nom (Bld)SPECIMEN NOTES SUBOPTIMAL VOLUME OF BLOOD COLLECTED, RESULTS MAY BE AFFECTED. CULTURE RESULTS NO GROWTH 5 DAYSNormalMorrow County HospitalComment on above:Performed By: #### 23688-9 ####[facility] ([id number])[address], [address] [place] [address] 48031Eahreklw identified Aer cx Nom (Bld)CULTURE RESULTS NO GROWTH 5 DAYSNormalMorrow County HospitalCBC AND AUTO DIFFon 07-13-2024 ABSOLUTE BASOPHIL0.1 X10E9/LNormal0.0-0.2[facility] Medical CenterComment on above:Performed By: #### CBCA, 75675-9, BMP ####[facility] ([id number])[address] [place] [address] 08222#### HA1C ####[facility] ([id number])[address], [address] [place] [address] 57780JYFDDNHV MDAQCNWDUE52.3 X10E9/LHigh1.5-6.6ProOhiohealth Doctors Hospitalca [facility] Comment on above:Performed By: #### CBCAriana, 80347-9, BMP ####[facility] ([id number])[address] [place] [address] 33359#### HA1C ####[facility] ([id number])[address], [address], [place] [address]Mlttbufpg/100 WBC (Bld)0.9 %NormalMorrow County Hospital Comment on above:Performed By: #### CBCAriana, 50007-8, BMP ####[facility] ([id number])[address] [place] [address] 10055#### HA1C ####[facility] ([id number])[address], [address], [place] [address]Eqdekzwzumo (Bld) [#/Vol]0.3 10*3/uLNormal0.0-0.4ProBaylor Scott & White Medical Center – GrapevineComment on above:Performed By: #### CBCAriana, 89228-9, BMP ####[facility] ([id number])[address] [place] [address] 17455#### HAJp ####[facility] ([id number])[address], [address] [place] [address] 90269Zngjcyjlavz/100 WBC (Bld) 1.9 %NormalMorrow County HospitalComment on above:Performed By: #### CBCAriana, 71978-8, BMP ####[facility] ([id number])[address] [place] [address] 29461#### HA1C ####[facility] ([id number])[address], [place] [address]Jgmejauhtvz distribution width (RBC) [Ratio]21.0 %High11.5-15.0ProBaylor Scott & White Medical Center – GrapevineComment on above:Performed By: #### PRIYANK, 55314-2, BMP ####[facility] ([id number])[address] [place] [address] 09342#### HA1C ####[facility] ([id number])[address], [place] [address]Bgujcsvekg (Bld) [Volume fraction]36.3 %Rorfmo01-50QuwXhbqsm [facility] CenterComment on above:Performed By: #### PRIYANK, 30201-5, BMP ####[facility] ([id number])[address] [place] [address] 02345#### HA1C ####[facility] ([id number])[address], [place] [address]Ujpinccfbe (Bld) [Mass/Vol]11.6 g/dLLow11.7-15.5 [facility] Medical CenterComment on above:Performed By: #### PRIYANK, 96477-4, BMP ####[facility] ([id number])[address] [place] [address] 77850#### HA1C ####[facility] ([id number])[address], [place] [address]Jdcoprorjrz (Bld) [#/Vol] 1.3 10*3/uLNormal1.0-3.5Pro[facility] Medical CenterComment on above:Performed By: #### PRIYANK, 61184-7, BMP ####[facility] ([id number])[address] [place] [address] 98054#### HA1C ####[facility] ([id number])[address], [place] [address]Ppgaoohggwl/100 WBC (Bld)7.6 %NormalProOhiohealth Doctors Hospitalca [facility] Medical CenterComment on above:Performed By: #### PRIYANK, 43187-1, BMP ####[facility] ([id number])[address] [place] [address] 31204#### HA1C ####[facility] ([id number])[address], [address] [place] [address] 78535YVY (RBC) [Entitic mass] 26.7 wnYwx52-54IeoJjimfvBaylor Scott & White Medical Center – GrapevineComment on above:Performed By: #### PRIYANK, 31998-7, BMP ####[facility] ([id number])[address] [place] [address] 94906#### HAJp ####[facility] ([id number])[address] [facility], [address] [place] [address] 85925DNJT (RBC) [Mass/Vol]31.9 g/rGAtm33-46JodMerkvhBaylor Scott & White Medical Center – GrapevineComment on above:Performed By: #### PRIYANK, 28124-0, BMP ####[facility] ([id number])[address] [place] [address] 01922#### HAJp ####[facility] ([id number])[address], [address] [place] [address] 30755QJA (RBC) [Entitic vol]84 bIJtvzeg15-307BdtCzxvtg [facility]remont HospitalComment on above:Performed By: #### PRIYANK, 29903-4, BMP ####[facility] ([id number])[address] [place] [address] 39224#### HA1C ####[facility] ([id number])[address], [address] [place] [address] 33519Knxzfmybp (Bld) [#/Vol]1.0 10*3/uLHigh0-0.9ProBaylor Scott & White Medical Center – GrapevineComment on above:Performed By: #### PRIYANK, 27289-0, BMP ####[facility] ([id number])[address] [place] [address] 63248#### BRIJESH ####[facility] ([id number])[address], [place] [address]Hdxfsnjju/100 WBC (Bld)5.7 %NormalMorrow County HospitalComment on above:Performed By: #### PRIYANK 72388-9, BMP ####[facility] ([id number])[address] [place] [address] 07862#### HAJp ####[facility] ([id number])[address] [facility], [place] [address]Jdubdmcvnyf/100 WBC (Bld) 83.9 %NormalMorrow County HospitalComment on above:Performed By: #### PRIYANK 83760-2, BMP ####[facility] ([id number])[address] [place] [address] 62657#### BRIJESH ####[facility] ([id number])[address] [place] [address] 73129Jaloaqey mean volume (Bld) [Entitic vol]7.1 fLNormal7-12Pro[facility] Medical CenterComment on above: Performed By: #### PRIYANK 37537-4, BMP ####[facility] ([id number])[address] [place] [address] 48600#### HAJp ####[facility] ([id number])[address], [address] [place] [address] 84354Rstnspsji (Bld) [#/Vol]288 10*3/yARliknb386-885FfuIysmgs [facility] Comment on above:Performed By: #### PRIYANK, 13780-6, BMP ####[facility] ([id number])[address] [place] [address] 73125#### BRIJESH ####[facility] ([id number])[address] [place] [address], [address] [place] [address] 56960YVD COUNT4.35 X10E12/LNormal3.80-5.20ProBaylor Scott & White Medical Center – GrapevineComment on above:Performed By: #### PRIYANK 34326-7, BMP ####[facility] ([id number])[address] [place] [address] 87773#### BRIJESH ####[facility] ([id number])[address] [place] [address], [address] [place] [address] 99749QHG (Bld) [#/Vol]17.0 10*3/uLHigh4.0-11.0ProBaylor Scott & White Medical Center – GrapevineComment on above:Performed By: #### PRIYANK 16988-1, BMP ####[facility] ([id number])[address] [place] [address] 21026#### BRIJESH ####[facility] ([id number])[address] [place] [address], [address] [place] [address] 55912Rsdrpve Glucometer (BldC) [Mass/Vol]on 55-58-4002Rkpcgrc [Mass/Vol]329 mg/pAEvhu96-14CmvGbtbugMorrow County HospitalGlucose [Mass/Vol]318 mg/aHSobq92-17FqiTbobygBaylor Scott & White Medical Center – GrapevineHGB A1C (GLYCO-HGB)on 44-72-3339Bxzzoxc [Mass/Vol]171 mg/dLNormalProBaylor Scott & White Medical Center – GrapevineComment on above:Performed By: #### PRIYANK, 55730-9, BMP ####[facility] ([id number])[address] [place] [address] 30596#### HAJp ####[facility] ([id number])[address] [place] [address], [address] [place] [address] 78502DcQ7f (Bld) [Mass fraction]7.6 %High4.4-5.6ProBaylor Scott & White Medical Center – GrapevineComment on above:Result Comment: NOTE ADA Guidelines Result HgbA1c Normal : less than 5.7 % Prediabetes : 5.7 % to 6.4 % Diabetes : > 6.4 %Use with caution in patients with abnormal hemoglobin variants asthe half-life of red blood cells and in vivo glycation rates areaffected.Performed By: #### CBCA, 23041-8, BMP ####[facility] ([id number])[address] [place] [address] 85476#### HA1C ####[facility] ([id number])[address] [place] [address] 74282Mrjqlsh (P nathalie) [Moles/Vol]on 10-22-4762FAVNBFE W/REFLEX0.7 mmol/LNormal 0.4-2.0ProBaylor Scott & White Medical Center – GrapevineComment on above:Result Comment: Result did not trigger repeat Lactate,re-order if needed.Performed By: #### 24638-2 ####[facility] ([id number])[address] [place] [address] 12117QQLU PCR NASALon 41-83-0351FONJ DNA JANIA+probe Ql (Unsp spec) NegativeNormalNEGProBaylor Scott & White Medical Center – GrapevineComment on above:Performed By: #### 67899-1 ####[facility] ([id number])[address] [place] [address] 28849Ubukhzcf I.cardiac High sensitivity method [Mass/Vol]on HOUR TROP I, HIGH SENSITIVITY6 ng/LNormal<16ProBaylor Scott & White Medical Center – GrapevineComment on above:Performed By: #### 54037-8 ####[facility] ([id number])[address] [place] [address], [place] [address]OXGQOCCP I, HIGH SENSITIVITY5 ng/LNormal<16Morrow County HospitalComment on above: Performed By: #### PRIYANK, 54054-3, BMP ####[facility] ([id number])[address] [place] [address], [place] [address]#### HA1C ####[facility] ([id number])[address], [address], [place] [address]DB CHEST 1 VWon 90-30-3023YN CHEST 1 VWNormalProBaylor Scott & White Medical Center – GrapevineXR FOOT LT MIN 3 VWSon 78-53-2741QA FOOT LT MIN 3 VWSNormCrystal Clinic Orthopedic CenterXR FOOT RT MIN 3 VWSon 37-64-4104RF FOOT RT MIN 3 White HospitalBASIC METABOLIC PANLon 71-38-0655Zgzkp gap [Moles/Vol]9 mmol/L Normal5-15ProBaylor Scott & White Medical Center – GrapevineComment on above:Performed By: #### PRIYANK ALEMAN, BMP ####[facility] ([id number])[address] [place] [address] 73976Bbtyvbn [Mass/Vol]8.9 mg/dLNormal8.5-10.5PCincinnati VA Medical CenterComment on above:Performed By: #### PRIYANK ALEMAN, BMP ####[facility] ([id number])[address] [place] [address] 96276 Chloride [Moles/Vol]102 mmol/FQpsvsc46-114RkcLvrdcdBaylor Scott & White Medical Center – GrapevineComment on above:Performed By: #### PRIYANK ALEMAN, BMP ####[facility] ([id number])[address] [place] [address] 99613CR2 [Moles/Vol]23 mmol/CLixtel89-19YffUugstsCincinnati VA Medical CenterComment on above:Performed By: #### LIVDarlin CBCAriana, BMP ####[facility] ([id number])[address] [place] [address] 60523Lcnghqhkav [Mass/Vol]0.82 mg/dLNormal0.40-1.00 ProMMarina Del Rey HospitalComment on above:Result Comment: METHOD TRACEABLE TO IDMS STANDARDPerformed By: #### PRIYANK ALEMAN BMP ####[facility] ([id number])[address] [place] [address] 39883JUU/1.73 sq M.predicted among non-blacks MDRD (S/P/Bld) [Vol rate/Area]80 mL/min/{1.73_m2} Normal>59ProBaylor Scott & White Medical Center – GrapevineComment on above:Result Comment: Reported eGFR is based on theCKD-EPI 2020 equation that doesnot use a race coefficient. Performed By: #### PRIYANK ALEMAN BMP ####[facility] ([id number])[address] [place] [address] 02327Iuxlatw [Mass/Vol]155 mg/dLHigh 65-99ProBaylor Scott & White Medical Center – GrapevineComment on above:Performed By: #### PRIYANK ALEMAN BMP ####[facility] ([id number])[address] [place] [address] 65931Igkfjsbdy [Moles/Vol]5.0 mmol/LNormal3.5-5.0Morrow County HospitalComment on above:Performed By: #### PRIYANK ALEMAN, BMP ####[facility] ([id number])[address] [place] [address] 95732 Sodium [Moles/Vol]134 mmol/YHkivbs674-343InfUoozdw [facility] HospitalComment on above:Performed By: #### PRIYANK ALEMAN, BMP ####[facility] ([id number])[address] [place] [address] 92356Urgj nitrogen [Mass/Vol]11 mg/dLNormal5-27ProBaylor Scott & White Medical Center – GrapevineComment on above:Performed By: #### ASH CBCAriana, BMP ####[facility] ([id number])[address] [place] [address] 11167SIQ AND AUTO DIFFon 51-33-1111QIXKBKSC BASOPHIL0.1 X10E9/LNormal0.0-0.2Pro[facility] Medical CenterComment on above: Performed By: #### LIVDarlin CBCA, BMP ####[facility] ([id number])[address] [place] [address] 74202YDXSJCAA NEUTROPHIL8.0 X10E9/L High1.5-6.6Morrow County HospitalComment on above:Performed By: #### LIVDarlin CBCA, BMP ####[facility] ([id number])[address] [place] [address] 72560Pluwxfnxd/100 WBC (Bld)1.4 %NormalProBaylor Scott & White Medical Center – GrapevineComment on above:Performed By: #### LIVDarlin CBCA, BMP ####[facility] ([id number])[address] [place] [address] 13035 Eosinophils (Bld) [#/Vol]0.4 10*3/uLNormal0.0-0.4[facility] Comment on above:Performed By: #### LIVDarlin CBCA, BMP ####[facility] ([id number])[address] [place] [address] 31842 Eosinophils/100 WBC (Bld)3.7 %NormalMorrow County HospitalComment on above: Performed By: #### LIVDarlin CBCA, BMP ####[facility] ([id number])[address] [place] [address] 17103Jmxwonmhsui distribution width (RBC) [Ratio]18.6 %High11.5-15.0Morrow County HospitalComment on above: Performed By: #### LIVR, CBCA, BMP ####[facility] ([id number])[address] [place] [address] 97774Cukedaoqmu (Bld) [Volume fraction]39.2 %Xieltg83-73OqbEbawhoBaylor Scott & White Medical Center – GrapevineComment on above:Performed By: #### LIVDarlin CBCA, BMP ####[facility] ([id number])[address] [place] [address] 81381Xgdbkqouuk (Bld) [Mass/Vol]12.9 g/dL Yrklhi50.7-15.5ProMedica [facility] Of The Valley Medical CenterComment on above:Performed By: #### LIVDarlin CBCA, BMP ####[facility] ([id number])[address] [place] [address] 90754Asxypluwsgj (Bld) [#/Vol]1.1 10*3/uLNormal1.0-3.5 Pro[facility] Medical CenterComascension standish hospital on above:Performed By: #### LIVR, CBCA, BMP ####[facility] ([id number])[address] [place] [address] 92561Peubbhjnydd/100 WBC (Bld)10.7 %NormalMorrow County HospitalComment on above:Performed By: #### LIVR CBCA, BMP ####[facility] ([id number])[address] [place] [address] 20706GVT (RBC) [Entitic mass]27.9 mzUlgrrk13-51CnuBpkqphBaylor Scott & White Medical Center – GrapevineComment on above:Performed By: #### LIVR, CBCA, BMP ####[facility] ([id number])[address] [place] [address] 83898KBMB (RBC) [Mass/Vol]32.8 g/cYBjbbem60-75ExcOlmikgBaylor Scott & White Medical Center – GrapevineComment on above: Performed By: #### LIVR, CBCA, BMP ####[facility] ([id number])[address] [place] [address], [place] [address]XYL (RBC) [Entitic vol]85 fL Rdgmpx97-082RswBornnyBaylor Scott & White Medical Center – GrapevineComment on above:Performed By: #### LIVDarlin, CBCA, BMP ####[facility] ([id number])[address] [place] [address] 11221Bvpchfycf (Bld) [#/Vol]0.8 10*3/uLNormal0-0.9M[facility] County HospitalComment on above:Performed By: #### LIVDarlin, CBCA, BMP ####[facility] ([id number])[address] [place] [address] 40054 Monocytes/100 WBC (Bld)7.6 %NormalMorrow County HospitalComment on above: Performed By: #### LIVDarlin, CBCA, BMP ####[facility] ([id number])[address] [place] [address], [place] [address]Ryfodqcsvjo/100 WBC (Bld)76.6 % NormalMorrow County HospitalComment on above:Performed By: #### LIVR, CBCA, BMP ####[facility] ([id number])[address] [place] [address] 74548Fqfvxwkj mean volume (Bld) [Entitic vol]7.5 fLNormal7-12 ProMMarina Del Rey HospitalComment on above:Performed By: #### LIVR, CBCA, BMP ####[facility] ([id number])[address] [place] [address] 37870Dopncwnfc (Bld) [#/Vol]259 10*3/kNHxymyh853-884BmaMnsfxg [facility] HospitalComment on above:Performed By: #### LIVR, CBCA, BMP ####[facility] ([id number])[address] [place] [address], [place] [address] RBC COUNT4.61 X10E12/LNormal3.80-5.20ProBaylor Scott & White Medical Center – GrapevineComment on above: Performed By: #### PIRYANK ALEMAN, BMP ####[facility] ([id number])[address] [place] [address] 47912VET (Bld) [#/Vol]10.4 10*3/uL Normal4.0-11.0ProBaylor Scott & White Medical Center – GrapevineComment on above:Performed By: #### PRIYANK ALEMAN, BMP ####[facility] ([id number])[address] [place] [address] 97789YJZTR PANELon 02-54-4727Phdlwoc [Mass/Vol]3.8 g/dL Normal3.2-5.3PCincinnati VA Medical CenterComment on above:Performed By: #### PRIYANK ALEMAN, BMP ####[facility] ([id number])[address] [place] [address], [place] [address]FPM [Catalytic activity/Vol]105 U/FNbcqng43-034TwnQsjeyzBaylor Scott & White Medical Center – GrapevineComment on above:Performed By: #### PRIYANK ALEMAN, BMP ####[facility] ([id number])[address] [place] [address], [place] [address] ALT [Catalytic activity/Vol]13 U/LNormal0-31PCincinnati VA Medical CenterComment on above:Performed By: #### PRIYANK ALEMAN, BMP ####[facility] ([id number])[address] [place] [address], [place] [address]JGP [Catalytic activity/Vol]22 U/LNormal0-41ProBaylor Scott & White Medical Center – GrapevineComment on above: Performed By: #### PRIYANK ALEMAN, BMP ####[facility] ([id number])[address] [place] [address]Fzomumbmp [Mass/Vol]1.1 mg/dL Normal0.3-1.2Pro[facility] Valley Medical CenterComment on above:Performed By: #### PRIYANK ALEMAN, BMP ####[facility] ([id number])[address] [place] [address]Zduxwsvzj.direct [Mass/Vol]0.2 mg/dLNormal0.0-0.4 [facility] Medical CenterComment on above:Performed By: #### PRIYANK ALEMAN, BMP ####[facility] ([id number])[address] [place] [address]Yzwoapw [Mass/Vol]7.4 g/dLNormal6.0-8.0Pro[facility] Valley Medical CenterComment on above:Performed By: #### PRIYANK ALEMAN, BMP ####[facility] ([id number])[address] [place] [address]TFUXY METABOLIC PANLon 90-46-3895Fnczs gap [Moles/Vol]13 mmol/LNormal5-15ProThe Bellevue HospitalComment on above:Performed By: #### PRIYANK, 86806-5, CMP #### [facility] ([id number]) [address], [address] [place], [place] [address]Foobpzu [Mass/Vol]9.0 mg/dLNormal8.5-10.5PSelect Medical Specialty Hospital - YoungstownComment on above:Performed By: #### PRIYANK, 23675-2, CMP #### [facility] ([id number]) [address], [address] [place], [place] [address]Ngrfvcsc [Moles/Vol]97 mmol/THid68-365JonRkqsolThe Bellevue Hospital Comment on above:Performed By: #### PRIYANK, 60594-8, CMP #### [facility] ([id number]) [address], [address] [place], [place] [address]UG4 [Moles/Vol]27 mmol/VJkbyph85-61YsuQdtaugSelect Medical Specialty Hospital - [place]stown Comment on above:Performed By: #### PRIYANK , CMP #### [facility] ([id number]) [address], [address] [place], [place] [address]Slxarrdqkp [Mass/Vol]0.53 mg/dLNormal0.40-1.00ProThe Bellevue HospitalComment on above:Result Comment: METHOD TRACEABLE TO IDMS STANDARD Performed By: #### PRIYANK , CMP #### [facility] ([id number]) [address], [address] [place], [place] [address]fKSH (CKD-EPI) NON-RACE DEPENDENT>90Normal>59ProThe Bellevue HospitalComment on above:Result Comment: Reported eGFR is based on the CKD-EPI 2020 equation that does not use a race coefficient.Performed By: #### PRIYANK , CMP #### [facility] ([id number]) [address], [address] [place], [place] [address]Pumzpgf [Mass/Vol]121 mg/fKThnz18-70RhkOwuwiwOhio State East Hospital Comment on above:Performed By: #### PRIYANK , CMP #### [facility] ([id number]) [address], [address] [place], [place] [address]Akpniubqh [Moles/Vol]3.4 mmol/LLow3.5-5.0ProThe Bellevue HospitalComment on above:Performed By: #### PRIYANK , CMP #### [facility] ([id number]) [address], [address] [place], [place] [address]Kbznci [Moles/Vol]137 mmol/DJnjook240-686AcwPrfrqj Toledo HospitalComment on above:Performed By: #### PRIYANK, , CMP #### [facility] ([id number]) [address], [address] [place], [place] [address]Kbzz nitrogen [Mass/Vol]9 mg/dLNormal5-27ProThe Bellevue Hospital HospitalComment on above:Performed By: #### PRIYANK, , CMP #### [facility] ([id number]) [address], [address] [place], [place] [address]TFHZKVZX BLOOD COUNTon 09-21-6532Scbcrvwkiri distribution width (RBC) [Ratio]17.6 %High11.5-15.0ProOhiohealth Doctors Hospitalca Coolidge HospitalComment on above: Performed By: #### PRIYANK, , CMP #### [facility] ([id number]) [address], [facility] [address] [place], [place] [address]Qlmspnqdqg (Bld) [Volume fraction]38.3 %Pfezzr19-20UenIjynbb [place] HospitalComment on above:Performed By: #### PRIYANK, , CMP #### [facility] ([id number]) [address], [address] [place], [place] [address]Rxdbeeqtxw (Bld) [Mass/Vol]12.9 g/lERcurjx13.7-15.5ProMedica [facility] HospitalComment on above:Performed By: #### PRIYANK, , CMP #### [facility] ([id number]) [address], [facility] [address] [place], [place] [address]BTE (RBC) [Entitic mass]29.4 olKvntwk44-70SiyIdgpqp [place] HospitalComment on above:Performed By: #### PRIYANK, , CMP #### [facility] ([id number]) [address], [address] [place], [place] [address]RIRI (RBC) [Mass/Vol]33.7 g/mCXtbrjc03-74VchDcxwgf [place] HospitalComment on above:Performed By: #### PRIYANK, , CMP #### [facility] ([id number]) [address], [address] [place], [place] [address]NGT (RBC) [Entitic vol]87 lVEewjbp63-878PtoXwrgqw [place] HospitalComment on above:Performed By: #### PRIYANK, , CMP #### [facility] ([id number]) [address], [address] [place], [place] [address]Ihohiwga mean volume (Bld) [Entitic vol]7.1 fLNormal7-12 ProMedicTriHealth HospitalComment on above:Performed By: #### PRIYANK, , CMP #### [facility] ([id number]) [address], [address] [place], [place] [address]Uurdcdzzh (Bld) [#/Vol]225 10*3/yJSspfez385-506QmoCenvdr [place] HospitalComment on above:Performed By: #### PRIYANK, , CMP #### [facility] ([id number]) [address], [address] [place] [address]SXQ COUNT4.40 X10E12/LNormal3.80-5.20[facility] Hospital Comment on above:Performed By: #### PRIYANK, , CMP #### [facility] ([id number]) [address], [address] [place] [address]BPA (Bld) [#/Vol]9.8 10*3/uLNormal4.0-11.0ProThe Bellevue HospitalComment on above:Performed By: #### PRIYANK, , CMP #### [facility] ([id number]) [address], [address] [place] [address]Iyfbcmz unfractionated Chromogenic method Qn (PPP)on 04-19-2024 ANTI XA UFH0.42 IU/mLNormal0.30-0.70ProThe Bellevue HospitalComment on above: Result Comment: Optimal time for testing is 6 hrs post dosage This test is specific for monitoring patients on UFH, and is not recommended for use with other Anti-Xa medications.Performed By: #### PRIYANK, 35420-0, CMP #### [facility] ([id number]) [address], [address] [place], [place] [address]EFUMSUV AND INRon 74-86-2867XTN Coag (PPP) [Relative time]1.0 {INR}Normal0.8-1.1PBlanchard Valley Health [facility] HospitalComment on above:Performed By: #### PRIYANK, , CMP #### [facility] ([id number]) [address], [address] [place], [place] [address]RH Coag (PPP) [Time]11.5 sNormal9.8-13.2PSelect Medical Specialty Hospital - YoungstownComment on above:Performed By: #### PRIYANK, 93121-2, CMP #### [facility] ([id number]) [address], [address] [place], [place] [address]YUYVC METABOLIC PANLon 38-03-0844Csqdy gap [Moles/Vol]6 mmol/L Normal5-15ProThe [facility] Hospital HospitalComment on above:Performed By: #### 84516-9, CBCA, CMP #### [facility] ([id number]) [address], [address] [place], [place] [address]Nebyqdu [Mass/Vol]8.7 mg/dLNormal8.5-10.5PBlanchard Valley Health [facility] HospitalComment on above:Performed By: #### 36347-9, CBCA, CMP #### [facility] ([id number]) [address], [address] [place], [place] [address]Aahbaaqq [Moles/Vol]103 mmol/QTssxkj22-361RgpLguibj [place] HospitalComment on above:Performed By: #### 83205-0, CBCA, CMP #### [facility] ([id number]) [address], [address] [place], [place] [address]DT8 [Moles/Vol]29 mmol/LLfctiz30-58UzhMrswjmSelect Medical Specialty Hospital - [place] Comment on above:Performed By: #### 38245-9, CBCA, CMP #### [facility] ([id number]) [address], [address] [place], [place] [address]Hfbgmvpltv [Mass/Vol]0.62 mg/dLNormal0.40-1.00[facility] HospitalComment on above:Result Comment: METHOD TRACEABLE TO IDMS STANDARD Performed By: #### 25392-9, CBCA, CMP #### [facility] ([id number]) [address], [address] [address]aZCI (CKD-EPI) NON-RACE DEPENDENT>90Normal>59ProThe Bellevue HospitalComment on above:Result Comment: Reported eGFR is based on the CKD-EPI 2020 equation that does not use a race coefficient.Performed By: #### 59315-9, CBCA, CMP #### [facility] ([id number]) [address], [address] [place], [place] [address]Yscnhls [Mass/Vol]91 mg/qACelxpd16-57EzzGipffgOhio State East Hospital Comment on above:Performed By: #### 73246-7, CBCA, CMP #### [facility] ([id number]) [address], [facility] [address] [place], [place] [address]Ncdqedvuw [Moles/Vol]4.3 mmol/LNormal3.5-5.0ProThe [facility]vue HospitalComment on above:Performed By: #### 66727-7, CBCA, CMP #### [facility] ([id number]) [address], [address] [place], [place] [address]Fippnb [Moles/Vol]138 mmol/ADzystl915-794FooMwwgwk [place] HospitalComment on above:Performed By: #### 87653-7, CBCA, CMP #### [facility] ([id number]) [address], [address] [place], [place] [address]Zmdj nitrogen [Mass/Vol]12 mg/dLNormal5-27ProMedica [facility]ary HospitalComment on above:Performed By: #### 68487-2, CBCA, CMP #### [facility] ([id number]) [address], [facility] [address] [place], [place] [address]EEWHOZDU BLOOD COUNTon 72-83-3123Xqyufbktlpv distribution width (RBC) [Ratio]17.2 %High11.5-15.0ProMedica [facility]hary HospitalComment on above: Performed By: #### PRIYANK, , CMP #### [facility] ([id number]) [address], [address] [place], [place] [address]Fmjqerusun (Bld) [Volume fraction]38.8 %Pehwdp62-17AitDcqcfi [place] HospitalComment on above:Performed By: #### PRIYANK , CMP #### [facility] ([id number]) [address], [address] [place], [place] [address]Kexzgmttde (Bld) [Mass/Vol]12.6 g/mPVkomrh05.7-15.5ProMedica [facility] HospitalComment on above:Performed By: #### PRIYANK, , CMP #### [facility] ([id number]) [address], [address] [place], [place] [address]OYZ (RBC) [Entitic mass]28.5 cxPetjvo87-37ZgpQtswbk [facility] HospitalComment on above:Performed By: #### CBCAriana, , CMP #### [facility] ([id number]) [address], [address] [place], [place] [address]HYOS (RBC) [Mass/Vol]32.4 g/sUMgynev10-27IidRtzznf [facility] HospitalComment on above:Performed By: #### CBCAriana, , CMP #### [facility] ([id number]) [address], [address] [place], [place] [address]OWJ (RBC) [Entitic vol]88 xULbdftb63-973CyfIwfctw [facility] HospitalComment on above:Performed By: #### PRIYANK, , CMP #### [facility] ([id number]) [address], [address] [place], [place] [address]Gmbvavdm mean volume (Bld) [Entitic vol]7.5 fLNormal7-12 ProMOhioHealth HospitalComment on above:Performed By: #### PRIYANK, , CMP #### [facility] ([id number]) [address], [address] [place], [place] [address]Qsxppuamr (Bld) [#/Vol]237 10*3/mQIkuyxo239-821CvrHllhrt [facility] HospitalComment on above:Performed By: #### PRIYANK, , CMP #### [facility] ([id number]) [address], [address] [place], [place] [address]POD COUNT4.41 X10E12/LNormal3.80-5.20[facility] Hospital Comment on above:Performed By: #### PRIYANK, , CMP #### [facility] ([id number]) [address], [address] [place], [place] [address]LKJ (Bld) [#/Vol]10.1 10*3/uLNormal4.0-11.0ProThe [facility] Hospital HospitalComment on above:Performed By: #### PRIYANK, , CMP #### [facility] ([id number]) [address], [address] [place], [place] [address]Ntneyqfejkj distribution width (RBC) [Ratio]17.4 %High11.5-15.0 ProMOhioHealth HospitalComment on above:Performed By: #### 42344-8, CBCAriana, CMP #### [facility] ([id number]) [address], [address] [place], [place] [address]Uwyzsdeqwx (Bld) [Volume fraction]36.6 %Nicydu42-31XrxCvgdbp [facility] HospitalComment on above:Performed By: #### 78584-5, CBCA, CMP #### [facility] ([id number]) [address], [address] [place], [place] [address]Okokocwucc (Bld) [Mass/Vol]11.9 g/bSQyrszc51.7-15.5ProMedica [facility] HospitalComment on above:Performed By: #### 22921-1, CBCA, CMP #### [facility] ([id number]) [address], [address] [place], [place] [address]HLY (RBC) [Entitic mass]28.7 fjTxyojn62-13ZdgSxoasd [facility] HospitalComment on above:Performed By: #### 17310-4, CBCA, CMP #### [facility] ([id number]) [address], [address] [place], [place] [address]IDYQ (RBC) [Mass/Vol]32.4 g/mFZnainv88-27YcoBzpczl [facility] HospitalComment on above:Performed By: #### 44069-5, CBCA, CMP #### [facility] ([id number]) [address], [address] [place], [place] [address]QJG (RBC) [Entitic vol]89 aWCjrigk57-328OfzTsoiqd [facility] HospitalComment on above:Performed By: #### 52648-1, CBCA, CMP #### [facility] ([id number]) [address], [address] [place], [place] [address]Vmxkykyq mean volume (Bld) [Entitic vol]6.9 fLLow7-12ProMedica [facility] HospitalComment on above:Performed By: #### 40464-8, CBCA, CMP #### [facility] ([id number]) [address], [address] [place], [place] [address]Cvpvohymn (Bld) [#/Vol]212 10*3/fDZbynpa448-215KonKkczbh [facility] HospitalComment on above:Performed By: #### 58349-0, CBCA, CMP #### [facility] ([id number]) [address], [address] [place], [place] [address]YUB COUNT4.13 X10E12/LNormal3.80-5.20ProOhiohealth Doctors Hospitalca [facility] Comment on above:Performed By: #### 16916-1, CBCA, CMP #### [facility] ([id number]) [address], [address] [place] [address]VKJ (Bld) [#/Vol]10.4 10*3/uLNormal4.0-11.0ProOhiohealth Doctors Hospitalca [facility] HospitalComment on above:Performed By: #### 19829-1, CBCA, CMP #### [facility] ([id number]) [address], [facility] [address] [place], [place] [address]Wwnebyiravc distribution width (RBC) [Ratio]16.8 %High11.5-15.0 [facility] HospitalComment on above:Performed By: #### 99345-0, CBCA, CMP #### [facility] ([id number]) [address], [address] [place], [place] [address]Sbusdydhev (Bld) [Volume fraction]38.9 %Cwzrwt55-44NubNoviou [facility] HospitalComment on above:Performed By: #### 99470-9, CBCA, CMP #### [facility] ([id number]) [address], [address] [place], [place] [address]Qauifhzsfv (Bld) [Mass/Vol]12.7 g/cJXnciyb70.7-15.5[facility] [place] HospitalComment on above:Performed By: #### 37088-2, CBCA, CMP #### [facility] ([id number]) [address], [address] [place], [place] [address]LRZ (RBC) [Entitic mass]28.5 njPmnvwi01-76DnpMzgweb [facility] HospitalComment on above:Performed By: #### 98267-9, CBCA, CMP #### [facility] ([id number]) [address], [address] [place], [place] [address]UDCF (RBC) [Mass/Vol]32.5 g/bEHojouo98-91TcfAwkoib [place] HospitalComment on above:Performed By: #### 30200-2, CBCA, CMP #### [facility] ([id number]) [address], [address] [place], [place] [address]OHU (RBC) [Entitic vol]88 pVPgytaj48-945CelVbrlxr [facility] HospitalComment on above:Performed By: #### 57559-0, CBCA, CMP #### [facility] ([id number]) [address], [address] [place], [place] [address]Aaplgvjp mean volume (Bld) [Entitic vol]7.0 fLNormal7-12 ProMw. d. partlow developmental centera [facility] HospitalComment on above:Performed By: #### 01623-6, CBCA, CMP #### [facility] ([id number]) [address] [place], [place] [address]Zuncgoqpt (Bld) [#/Vol]246 10*3/gAHxrrjf973-535FtxDteesf [facility] HospitalComment on above:Performed By: #### 04588-0, CBCA, CMP #### [facility] ([id number]) [address], [address] [place], [place] [address]ICT COUNT4.43 X10E12/LNormal3.80-5.20ProThe [facility] Hospital Comment on above:Performed By: #### 01748-3, CBCA, CMP #### [facility] ([id number]) [address], [address] [place], [place] [address]FVI (Bld) [#/Vol]9.7 10*3/uLNormal4.0-11.0ProOhiohealth Doctors Hospitalca [facility] HospitalComment on above:Performed By: #### 47901-3, CBCA, CMP #### [facility] ([id number]) [address], [address] [place], [place] [address]Whmuxoykdqn distribution width (RBC) [Ratio]17.4 %High11.5-15.0 [facility] HospitalComment on above:Performed By: #### 26014-6, CBCA, CMP #### [facility] ([id number]) [address], [address] [place], [place] [address]Cvkpsqmsbm (Bld) [Volume fraction]38.2 %Goqoud09-41QfsDhesgd [place] HospitalComment on above:Performed By: #### 75364-0, CBCA, CMP #### [facility] ([id number]) [address] [place], [place] [address]Dkjryxemhg (Bld) [Mass/Vol]12.4 g/cJKyjqdd08.7-15.5[facility] [place] HospitalComment on above:Performed By: #### 77477-8, CBCA, CMP #### [facility] ([id number]) [address], [address] [place], [place] [address]UHN (RBC) [Entitic mass]28.8 stVrdxqj54-87NcbUnebwd [facility] HospitalComment on above:Performed By: #### 43945-5, CBCA, CMP #### [facility] ([id number]) [address] [place], [place] [address]OXOD (RBC) [Mass/Vol]32.4 g/zKFjgqwk47-45QorCspxrz [facility] HospitalComment on above:Performed By: #### 94575-5, CBCA, CMP #### [facility] ([id number]) [address], [address] [place] [address]NKX (RBC) [Entitic vol]89 yVFhglzr90-668LbuOkerzl [facility] HospitalComment on above:Performed By: #### 76625-4, CBCA, CMP #### [facility] ([id number]) [address], [address] [place] [address]Vyckumoi mean volume (Bld) [Entitic vol]7.1 fLNormal7-12 [facility] HospitalComment on above:Performed By: #### 47141-3, CBCA, CMP #### [facility] ([id number]) [address], [address] [place] [address]Lwmrhxmmp (Bld) [#/Vol]238 10*3/wZTpizuz777-964IomHskisn [facility] HospitalComment on above:Performed By: #### 52268-9, CBCA, CMP #### [facility] ([id number]) [address], [address] [place] [address]TQR COUNT4.31 X10E12/LNormal3.80-5.20ProThe [facility] Hospital Comment on above:Performed By: #### 30907-7, CBCA, CMP #### [facility] ([id number]) [address], [address] [place] [address]AJW (Bld) [#/Vol]7.8 10*3/uLNormal4.0-11.0ProOhiohealth Doctors Hospitalca [facility] HospitalComment on above:Performed By: #### 23312-2, CBCA, CMP #### [facility] ([id number]) [address], [address] [place] [address]Hczufkltuj Coagulation.derived (PPP) [Mass/Vol]on 04-18-2024 KPLTBFOEWF500 mg/fFQnbjpr367-391EooNpvjqi [place] HospitalComment on above: Performed By: #### PRIYANK, 77419-3, CMP #### [facility] ([id number]) [address], [address] [place], [place] [address]WYHZGFTXWY256 mg/tIUxuivd953-356FwlRaxfim [place] HospitalComment on above:Performed By: #### 56624-5, CBCA, CMP #### [facility] ([id number]) [address], [address] [place], [place] [address]WYAEEHEYQC191 mg/zOBqcfrg448-407XgiAjvboi [place] HospitalComment on above:Performed By: #### 77254-5, CBCA, CMP #### [facility] ([id number]) [address], [address] [place], [place] [address]LTPZVQWPIM739 mg/lMCwlfkn232-016XfuKznfrb [place] HospitalComment on above:Performed By: #### 27466-7, CBCA, CMP #### [facility] ([id number]) [address], [address] [place], [place] [address]Ilxecwm Glucometer (BldC) [Mass/Vol]on 46-67-5154Yypemtn [Mass/Vol]152 mg/gCAuwp80-71DxbBzplfeOhio State East HospitalGlucose [Mass/Vol]158 mg/dL Mpgt65-79VadBcwkcaOhio State East HospitalHeparin unfractionated Chromogenic method Qn (PPP)on 23-20-2702QWID XA UFH0.32 IU/mLNormal0.30-0.70[facility] Comment on above:Result Comment: Optimal time for testing is 6 hrs post dosage This test is specific for monitoring patients on UFH, and is not recommended for use with other Anti-Xa medications.Performed By: #### PRIYANK, 74741-7, CMP #### [facility] ([id number]) [address], [address] [place], [place] [address]WYTGOXK AND INRon 56-56-9[address]APO Coag (PPP) [Relative time]1.0 {INR}Normal0.8-1.1PBlanchard Valley Health [facility] HospitalComment on above:Performed By: #### PRIYANK, 54495-0, CMP #### [facility] ([id number]) [address], [address] [place], [place] [address]EO Coag (PPP) [Time]11.6 sNormal9.8-13.2ProMedPremier Health Atrium Medical Centero HospitalComment on above:Performed By: #### PRIYANK, 23545-4, CMP #### [facility] ([id number]) [address] [place], [place] [address]QBC Coag (PPP) [Relative time]1.0 {INR}Normal0.8-1.1ProMedBaylor Scott & White [facility] Fort Worthedo HospitalComment on above:Performed By: #### 12498-3, CBCA, CMP #### [facility] ([id number]) [address], [address] [place], [place] [address]WD Coag (PPP) [Time]11.8 sNormal9.8-13.2PSumma Health Wadsworth - Rittman Medical Centeredo HospitalComment on above:Performed By: #### 12183-2, CBCA, CMP #### [facility] ([id number]) [address], [address] [place], [place] [address]FJC Coag (PPP) [Relative time]1.0 {INR}Normal0.8-1.1ProMedBaylor Scott & White All Saints [facility] Center Fort Worthedo HospitalComment on above:Performed By: #### 31220-9, CBCA, CMP #### [facility] ([id number]) [address] [place], [place] [address]OF Coag (PPP) [Time]11.6 sNormal9.8-13.2ProMedencompass health rehabilitation hospital [facility] HospitalComment on above:Performed By: #### 46112-8, CBCA, CMP #### [facility] ([id number]) [address] [place] [address]SWH Coag (PPP) [Relative time]1.0 {INR}Normal0.8-1.1PBlanchard Valley Health System [facility] HospitalComment on above:Performed By: #### 83130-5, CBCA, CMP #### [facility] ([id number]) [address], [address] [place], [place] [address]CX Coag (PPP) [Time]11.3 sNormal9.8-13.2PBlanchard Valley Health System [facility] HospitalComment on above:Performed By: #### 51889-5, CBCA, CMP #### [facility] ([id number]) [address], [address] [place] [address]pWJB Coag (PPP) [Time]on 99-70-6685mLHQ Coag (Bld) [Time]63 s Gjet70-44JioRynmlkThe Bellevue HospitalComment on above:Performed By: #### PRIYANK, 82185-8, CMP #### [facility] ([id number]) [address], [address] [place], [place] [address]fYFC Coag (Bld) [Time]35 qMgeasp67-14NnkZewlevOhio State East Hospital Comment on above:Performed By: #### PRIYANK, 27224-9, CMP #### [facility] ([id number]) [address], [address] [place], [place] [address]cUPJ Coag (Bld) [Time]37 nXmqbhl80-26HjgTaotyyOhio State East Hospital Comment on above:Performed By: #### 23640-2, CBCA, CMP #### [facility] ([id number]) [address], [address] [place], [place] [address]eZTE Coag (Bld) [Time]37 zMkxnlk15-27OfqJtdklbOhio State East Hospital Comment on above:Performed By: #### 20015-1, CBCA, CMP #### [facility] ([id number]) [address], [address] [place], [place] [address]JYJ AND AUTO DIFFon [id number] BASOPHIL0.1 X10E9/LNormal 0.0-0.2ProMedArrowhead Regional Medical CenterComment on above:Performed By: #### 68356-6, 04600-5, CMP, 73212-9, CBCA, 47053-6, PINR ####[facility] ([id number])[address] [place] [address]JFTCDNHN NEUTROPHIL7.8 X10E9/LHigh1.5-6.6ProBaylor Scott & White Medical Center – GrapevineComment on above: Performed By: #### 90614-1, 08310-6, CMP, 08936-2, CBCA, 96325-4, PINR ####[facility] ([id number])[address] [place] [address] 50897Uonjglnud/100 WBC (Bld)1.4 %NormalProBaylor Scott & White Medical Center – GrapevineComment on above:Performed By: #### 12439-2, 37381-7, CMP, 50504-8, CBCA, 81943-1, PINR ####[facility] ([id number])[address] [place] [address] 04895Lukslyvceew (Bld) [#/Vol]0.4 10*3/uLNormal 0.0-0.4M[facility] County HospitalComment on above:Performed By: #### 85810-2, 07050-7, CMP, 71583-1, CBCA, 89988-5, PINR ####[facility] ([id number])[address] [place] [address] 66157Abyhbbnigdb/100 WBC (Bld)4.1 %NormalProBaylor Scott & White Medical Center – GrapevineComment on above:Performed By: #### 19445-5, 79041-7, CMP, 42717-5, CBCA, 51538-8, PINR ####[facility] ([id number])[address] [place] [address]606 Erythrocyte distribution width (RBC) [Ratio]17.5 %High11.5-15.0M[facility] County HospitalComment on above:Performed By: #### 04694-4, 46042-4, CMP, 65072-9, CBCA, 27780-5, PINR ####[facility] ([id number])[address] [place] [address] 17417Jhvkdoipdt (Bld) [Volume fraction]39.1 % Uvkhai10-83XacGpokdcBaylor Scott & White Medical Center – GrapevineComment on above:Performed By: #### 03362- 4, 11667-3, CMP, 30452-7, CBCA, 74991-6, PINR ####[facility] ([id number])[address] [place] [address] 73525Bzotqxdsam (Bld) [Mass/Vol]13.0 g/rRJytsjn97.7-15.5PCincinnati VA Medical CenterComment on above: Performed By: #### 97813-6, 85913-0, CMP, 95210-0, CBCA, 73718-3, PINR ####[facility] ([id number])[address] [place] [address] 97828Wzlifkosixh (Bld) [#/Vol]1.1 10*3/uLNormal1.0-3.5PCincinnati VA Medical CenterComment on above:Performed By: #### 30220-9, 66055-3, CMP, 23304-5, CBCA, 04246-5, PINR ####[facility] ([id number])[address] [place] [address] 77842Hldxtwcvpgz/100 WBC (Bld)11.4 %Normal ProMedicProvidence Holy Cross Medical CenterComment on above:Performed By: #### 64633-0, 46258-2, CMP, 52216-2, CBCA, 07248-3, PINR ####[facility] ([id number])[address] [place] [address] 29516EUN (RBC) [Entitic mass]29.0 pg Bxglql24-50LymTjjejvBaylor Scott & White Medical Center – GrapevineComment on above:Performed By: #### 45103- 4, 90618-9, CMP, 46408-9, CBCA, 26188-9, PINR ####[facility] ([id number])[address] [place] [address] 47780FRUM (RBC) [Mass/Vol]33.2 g/tHUzxttu01-26KyoJxaqxlBaylor Scott & White Medical Center – GrapevineComment on above: Performed By: #### 28058-7, 37448-0, CMP, 80957-3, CBCA, 58708-3, PINR ####[facility] ([id number])[address] [place] [address] 36580JGI (RBC) [Entitic vol]87 qFPlrzci31-689RoiTwldgx Fremont HospitalComment on above:Performed By: #### 66572-2, 53832-7, CMP, 72995-5, CBCA, 36379-7, PINR ####[facility] ([id number])[address] [place] [address] 989[address]Ntgrqitjn (Bld) [#/Vol]0.5 10*3/uLNormal 0-0.9Morrow County HospitalComment on above:Performed By: #### 56720-5, 90800-7, CMP, 59613-5, CBCA, 04855-5, PINR ####[facility] ([id number])[address] [place], [place] [address]Monocytes/100 WBC (Bld)4.9 %NormalProBaylor Scott & White Medical Center – GrapevineComment on above:Performed By: #### 09910-0, 38450-0, CMP, 71144-2, CBCA, 04101-5, PINR ####[facility] ([id number])[address] [place] [address] Neutrophils/100 WBC (Bld)78.2 %NormalProBaylor Scott & White Medical Center – GrapevineComment on above: Performed By: #### 59923-0, 83927-6, CMP, 28659-2, CBCA, 02839-3, PINR ####[facility] ([id number])[address] [place] [address] 84965Ixuxdydi mean volume (Bld) [Entitic vol]6.9 fLLow7-12 [facility] Valley Medical CenterComment on above:Performed By: #### 87131-4, 98195-2, CMP, 07936-8, CBCA, 25385-5, PINR ####[facility] ([id number])[address] [place] [address] 71061Rfpjrtntc (Bld) [#/Vol]316 10*3/gABeyefc360-754GsbGzfarv [facility]remont HospitalComment on above:Performed By: #### 91167-1, 21017-6, CMP, 63064-8, CBCA, 72968-7, PINR ####[facility] ([id number])[address] [place] [address] 00521INW COUNT4.47 X10E12/LNormal3.80-5.20ProBaylor Scott & White Medical Center – GrapevineComment on above: Performed By: #### 62569-3, 45059-1, CMP, 59938-8, CBCA, 72865-7, PINR ####[facility] ([id number])[address] [place] [address] 58310RNE (Bld) [#/Vol]10.0 10*3/uLNormal4.0-11.0ProBaylor Scott & White Medical Center – GrapevineComment on above:Performed By: #### 85480-3, 58897-5, CMP, 04210-7, CBCA, 30353-1, PINR ####[facility] ([id number])[address] [place] [address], [place], [place] [address]HYOGUMVSLGPHY METABOLIC PANELon 23-61-4932Pkblehp [Mass/Vol]3.4 g/dLNormal3.2-5.3PSelect Medical Specialty Hospital [facility] [place] Comment on above:Performed By: #### 49543-1, CBCA, CMP #### [facility] ([id number]) [address], [address] [place], [place] [address]KOY [Catalytic activity/Vol]85 U/KDcpsdz96-263KrcSjpxwh [place] HospitalComment on above:Performed By: #### 20024-4, CBCA, CMP #### [facility] ([id number]) [address], [address] [place], [place] [address]WTC [Catalytic activity/Vol]9 U/LNormal0-31PBlanchard [facility] HospitalComment on above:Performed By: #### 37453-6, CBCA, CMP #### [facility] ([id number]) [address], [address] [place], [place] [address]Vvyqv gap [Moles/Vol]7 mmol/LNormal5-15[facility] Comment on above:Performed By: #### 99053-2, CBCA, CMP #### [facility] ([id number]) [address], [address] [place], [place] [address]XLS [Catalytic activity/Vol]21 U/LNormal0-41ProThe [facility] HospitalComment on above:Performed By: #### 11401-7, CBCA, CMP #### [facility] ([id number]) [address], [address] [place], [place] [address]Fnsewgkei [Mass/Vol]0.3 mg/dLNormal0.3-1.2ProMedLancaster Municipal Hospital HospitalComment on above:Performed By: #### 14922-3, CBCA, CMP #### [facility] ([id number]) [address], [address] [place], [place] [address]Mbhwgit [Mass/Vol]8.5 mg/dLNormal8.5-10.5PSelect Medical Specialty Hospital - YoungstownComment on above:Performed By: #### 51949-4, CBCA, CMP #### [facility] ([id number]) [address], [address] [place], [place] [address]Lrsafuya [Moles/Vol]102 mmol/WAhcqgw37-554QjuQpugxe [place] HospitalComment on above:Performed By: #### 45993-3, CBCA, CMP #### [facility] ([id number]) [address], [address] [place], [place] [address]UK1 [Moles/Vol]29 mmol/RPjwegm80-20NlgNiwnmf [facility] Comment on above:Performed By: #### 97418-9, CBCA, CMP #### [facility] ([id number]) [address], [address] [place], [place] [address]Bflzdndppu [Mass/Vol]0.76 mg/dLNormal0.40-1.00ProThe Bellevue HospitalComment on above:Result Comment: METHOD TRACEABLE TO IDMS STANDARD Performed By: #### 01528-3, CBCA, CMP #### [facility] ([id number]) [address], [address] [place], [place] [address]UBX/1.73 sq M.predicted among non-blacks MDRD (S/P/Bld) [Vol rate/Area]87 mL/min/{1.73_m2}Normal>59ProThe Bellevue HospitalComment on above: Result Comment: Reported eGFR is based on the CKD-EPI 2020 equation that does not use a race coefficient.Performed By: #### 87898-2, CBCA, CMP #### [facility] ([id number]) [address], [address] [place], [place] [address]Unypleo [Mass/Vol]146 mg/zBFvwp63-23XhqGwstmaThe [facility] Hospital Comment on above:Performed By: #### 86517-9, CBCA, CMP #### [facility] ([id number]) [address], [address] [place], [place] [address]Gyovvozbx [Moles/Vol]4.4 mmol/LNormal3.5-5.0ProThe [facility] HospitalComment on above:Performed By: #### 59818-0, CBCA, CMP #### [facility] ([id number]) [address], [address] [place], [place] [address]Refxriy [Mass/Vol]6.2 g/dLNormal6.0-8.0[facility] Comment on above:Performed By: #### 72968-0, CBCA, CMP #### [facility] ([id number]) [address], [address] [place], [place] [address]Lmoaug [Moles/Vol]138 mmol/LZhwdpa410-536JnzRzuyjg [place] HospitalComment on above:Performed By: #### 05574-4, CBCA, CMP #### [facility] ([id number]) [address], [address] [place], [place] [address]Bbhp nitrogen [Mass/Vol]13 mg/dLNormal5-27ProThe Bellevue HospitalComment on above:Performed By: #### 89060-6, CBCA, CMP #### [facility] ([id number]) [address], [address] [place], [place] [address]Kyojhnq [Mass/Vol]3.5 g/dLNormal3.2-5.3ProMedArrowhead Regional Medical CenterComment on above:Performed By: #### 03404-2, 44384-4, CMP, 91738-9, CBCA, 12801-2, PINR ####[facility] ([id number])[address] [place] [address]36[address]PKC [Catalytic activity/Vol]89 U/LNormal 39-130ProBaylor Scott & White Medical Center – GrapevineComment on above:Performed By: #### 64666-1, 22494-1, CMP, 08427-0, CBCA, 46672-5, PINR ####[facility] ([id number])[address] [place] [address], [place] [address]SYI [Catalytic activity/Vol]12 U/LNormal0-31ProMedArrowhead Regional Medical CenterComment on above: Performed By: #### 05067-5, 51749-5, CMP, 21491-0, CBCA, 24551-7, PINR ####[facility] ([id number])[address] [place] [address]Dejif gap [Moles/Vol]11 mmol/LNormal5-15ProBaylor Scott & White Medical Center – GrapevineComment on above:Performed By: #### 48170-4, 12470-2, CMP, 09773-6, CBCA, 54137-9, PINR ####[facility] ([id number])[address] [place] [address]PUP [Catalytic activity/Vol]21 U/LNormal0-41 [facility] Medical CenterComment on above:Performed By: #### 18778-2, 19118-2, CMP, 72494-1, CBCA, 59380-8, PINR ####[facility] ([id number])[address] [place] [address]Chwzvwtog [Mass/Vol]0.5 mg/dL Normal0.3-1.2ProMedArrowhead Regional Medical CenterComment on above:Performed By: #### 41177-8, 12487-7, CMP, 21096-9, CBCA, 61175-4, PINR ####[facility] ([id number])[address] [place] [address]Qzlvdov [Mass/Vol]9.0 mg/dLNormal8.5-10.5ProMedica Edwards HospitalComment on above: Performed By: #### 27704-6, 95889-0, CMP, 75690-3, CBCA, 54051-9, PINR ####[facility] ([id number])[address] [place] [address], [place] [address]Sognhkiu [Moles/Vol]100 mmol/OWutgks10-571XljLmumjlBaylor Scott & White Medical Center – GrapevineComment on above:Performed By: #### 87276-5, 19721-7, CMP, 83478-6, CBCA, 10223-6, PINR ####[facility] ([id number])[address] [place] [address], [place] [address]HI4 [Moles/Vol]24 mmol/NNmkbns13-54 ProMMarina Del Rey HospitalComment on above:Performed By: #### 25019-2, 44244-6, CMP, 81205-5, CBCA, 09497-3, PINR ####[facility] ([id number])[address] [place] [address], [place] [address]Jeswfnjezn [Mass/Vol]0.97 mg/dL Normal0.40-1.00ProBaylor Scott & White Medical Center – GrapevineComment on above:Result Comment: METHOD TRACEABLE TO IDMS STANDARDPerformed By: #### 50881-1, 05815-7, CMP, 64795-7, CBCA, 94733-2, PINR ####[facility] ([id number])[address] [place] [address], [place] [address]OEK/1.73 sq M.predicted among non-blacks MDRD (S/P/Bld) [Vol rate/Area]65 mL/min/{1.73_m2}Normal>59ProBaylor Scott & White Medical Center – GrapevineComment on above:Result Comment: Reported eGFR is based on theCKD-EPI 2020 equation that doesnot use a race coefficient.Performed By: #### 66727-4, 19185-9, CMP, 39546-1, CBCA, 82466-5, PINR ####[facility] ([id number])[address] [place] [address], [place] [address]Lghqrut [Mass/Vol]151 mg/oRCckf59-87EwoHzanayBaylor Scott & White Medical Center – GrapevineComment on above:Performed By: #### 94500-0, 67468-7, CMP, 96279-8, CBCA, 31813-7, PINR ####[facility] ([id number])[address] [place] [address], [place] [address]Hndgcladp [Moles/Vol]4.2 mmol/LNormal3.5-5.0[facility] Comment on above:Performed By: #### 25568-5, 64136-1, CMP, 91593-3, CBCA, 81041- 5, PINR ####[facility] ([id number])[address] [place] [address]Ohmkayv [Mass/Vol]7.0 g/dLNormal6.0-8.0ProBaylor Scott & White Medical Center – GrapevineComment on above:Performed By: #### 93546-8, 59643-7, CMP, 83743-8, CBCA, 01787-6, PINR ####[facility] ([id number])[address] [place] [address]Ishiev [Moles/Vol]135 mmol/UCqplii692-470 ProMMarina Del Rey HospitalComment on above:Performed By: #### 60548-4, 63048-9, CMP, 96544-4, CBCA, 75128-9, PINR ####[facility] ([id number])[address] [place] [address], [place] [address]Dhde nitrogen [Mass/Vol]17 mg/dL Normal5-27ProBaylor Scott & White Medical Center – GrapevineComment on above:Performed By: #### 08581-2, 10890-5, CMP, 73227-5, CBCA, 98649-6, PINR ####[facility] ([id number])[address] [place] [address] 504[address]IO CTA ABD AORTA W RUNOFFon 25-25-8404ZZ CTA ABD AORTA W RUNOFFNormalProBaylor Scott & White Medical Center – [facility]rapevine Fibrin D-dimer DDU (PPP) [Mass/Vol]on 04-17-2024D WUQDV6075 ng/mL DDUHigh<255 [facility] Medical CenterComment on above:Result Comment: Results >=255ng/mL DDU: Results may beindicative of the presence of VTE. The useof the Wells score and further diagnostictests should be considered. Elevated D-Dimerlevels can alsobe associated with DIC,neoplasm, , trauma and liver disease.Elevated levels of rheumatoid factor may leadto an overestimation of the D-Dimer level.Performed By: #### 98478-1, 15952-4, CMP, 50907-7, CBCA, 93626-9, PINR ####[facility] ([id number])[address] [place] [address] 130[address]Ordioijuyw Coagulation.derived (PPP) [Mass/Vol]on 53-11-1288HGISZYVSEV059 mg/oNQrgwab855-873PjmXewvct [place] HospitalComment on above:Performed By: #### 73507-0, CBCA, CMP #### [facility] ([id number]) [address] [place], [place] [address]UAVDORTNIS621 mg/xBSsrsob408-551MsiUrxozb [place] HospitalComment on above:Performed By: #### 64137-0, 46829-2, PINR #### [facility] ([id number]) [address], [address] [place], [place] [address]Xevpwuo (P nathalie) [Moles/Vol]on 74-42-4583MPNMWAH W/REFLEX0.5 mmol/LNormal0.4-2.0ProThe [facility] Hospital HospitalComment on above:Result Comment: Result did not trigger repeat Lactate, re-order if needed.Performed By: #### 62822-3, CBCA, CMP #### [facility] ([id number]) [address], [address] [place], [place] [address]QOPZBEJMTde 55-46-1607Suiyaezol [Mass/Vol]1.9 mg/dLNormal1.8-2.6 [facility] HospitalComment on above:Performed By: #### 99538-8, CBCA, CMP #### [facility] ([id number]) [address], [address] [place], [place] [address]Pmzjrgxdcdp peptide B [Mass/Vol]on 90-47-5023Geatferxfhi peptide B (Bld) [Mass/Vol]99 pg/mLNormal<100.0ProOhiohealth Doctors Hospitalca Queen Of The Valley Medical CenterComment on above:Performed By: #### 78833-5, 48938-2, CMP, 89723-8, CBCA, 82890-8, PINR ####[facility] ([id number])[address] [place] [address]XTXGJOZTPNrn 12-59-9368Kgzrmzist [Mass/Vol]4.1 mg/dLNormal 2.4-4.9ProOhiohealth Doctors Hospitalca Coolidge HospitalComment on above:Performed By: #### 12411-2, CBCA, CMP #### [facility] ([id number]) [address] [place], [place] [address]NOOQRVW AND INRon 75-81-1113NLT Coag (PPP) [Relative time]1.0 {INR}Normal0.8-1.1ProMedLancaster Municipal Hospital HospitalComment on above:Performed By: #### 40113-1, CBCA, CMP #### [facility] ([id number]) [address], [address] [place], [place] [address]WH Coag (PPP) [Time]11.7 sNormal9.8-13.2ProMedLancaster Municipal Hospital HospitalComment on above:Performed By: #### 95318-8, CBCA, CMP #### [facility] ([id number]) [address], [address] [place], [place] [address]FX Coag (PPP) [Time]11.6 sNormal9.8-13.2PSelect Medical Specialty Hospital - YoungstownComment on above:Performed By: #### 18765-2, CBCA, CMP #### [facility] ([id number]) [address], [address] [place], [place] [address]KHO Coag (PPP) [Relative time]1.1 {INR}Normal0.8-1.1PSelect Medical Specialty Hospital - YoungstownComment on above:Performed By: #### 33744-6, 22514-3, PINR #### [facility] ([id number]) [address], [address] [place], [place] [address]JU Coag (PPP) [Time]13.3 sHigh9.8-13.2PSelect Medical Specialty Hospital [facility] [place] Comment on above:Performed By: #### 89981-6, 71235-3, PINR #### [facility] ([id number]) [address], [address] [place], [place] [address]OBJ Coag (PPP) [Relative time]1.1 {INR}Normal0.8-1.1PCincinnati VA Medical CenterComment on above:Performed By: #### 50634-8, 68154-0, CMP, 16314-7, CBCA, 64038-4, PINR ####[facility] ([id number])[address] [place] [address]KW Coag (PPP) [Time]12.8 sNormal 9.8-13.2PCincinnati VA Medical CenterComment on above:Result Comment: NEW REFERENCE RANGEPerformed By: #### 67329-1, 82401-6, CMP, 54203-8, CBCA, 00705-5, PINR ####[facility] ([id number])[address] [place] [address]18[address]Dsotcqjf I.cardiac High sensitivity method [Mass/Vol]on 51 HOUR TROP I, HIGH SENSITIVITY5 ng/LNormal<16ProBaylor Scott & White Medical Center – GrapevineComment on above:Performed By: #### 19440-1 ####[facility] ([id number])[address] [place] [address]VYGILTWW I, HIGH SENSITIVITY4 ng/LNormal<16ProBaylor Scott & White Medical Center – GrapevineComment on above: Performed By: #### 14353-8, 63892-5, CMP, 82291-8, CBCA, 20269-6, PINR ####[facility] ([id number])[address] [place] [address] 24043bHXB Coag (PPP) [Time]on 08-90-7536wSCV Coag (Bld) [Time] 53 yRevr29-64FbuZegwoyOhio State East HospitalComment on above:Performed By: #### 35967- 9, CBCA, CMP #### [facility] ([id number]) [address], [address] [place], [place] [address]cVWD Coag (Bld) [Time]117 sCritically ljjp82-62RfuDpihpzOhio State East HospitalComment on above:Performed By: #### 74216-3, 68114-0, PINR #### [facility] ([id number]) [address], [address] [place], [place] [address]jOTY Coag (Bld) [Time]41 cCgzb32-61DqeDltnsmMorrow County Hospital Comment on above:Result Comment: NEW REFERENCE RANGEPerformed By: #### 25037-4, 45125-8, CMP, 48884-6, CBCA, 23131-8, PINR ####[facility] ([id number])[address] [place] [address]HQVW/FLU A+B/RSV by NAAT/Molecularon 42-33-7396WRJE/FLU A+B/RSV by NAAT/MolecularNormalProMedica Edwards HospitalComment on above:Performed By: #### COVFLR ####[facility] ([id number])[address] [place] [address], [place] [address]BMLYE METABOLIC PANLon 28-55-2532Wzluu gap [Moles/Vol]10 mmol/LNormal5-15ProBaylor Scott & White Medical Center – GrapevineComment on above:Performed By: #### KYLE YOST, 96402-7 ####[facility] ([id number])[address] [place] [address], [place] [address]Oxtymzg [Mass/Vol]9.1 mg/dLNormal8.5-10.5PCincinnati VA Medical CenterComment on above:Performed By: #### KYLE YOST, 70876-9 ####[facility] ([id number])[address] [place] [address], [place] [address]Hxdjoqem [Moles/Vol]104 mmol/ZXyrqkx48-332MuhKyfjukBaylor Scott & White Medical Center – GrapevineComment on above:Performed By: #### KYLE YOST, 94025-4 ####[facility] ([id number])[address] [place] [address], [place] [address]TK4 [Moles/Vol]21 mmol/NYij93-12SjkRuzzhwCincinnati VA Medical CenterComment on above:Performed By: #### KYLE YOST, 20862-7 ####[facility] ([id number])[address] [place] [address], [place] [address]Gsxuohktkn [Mass/Vol]0.97 mg/dLNormal 0.40-1.00Morrow County HospitalComment on above:Result Comment: METHOD TRACEABLE TO IDMS STANDARDPerformed By: #### KYLE YOST, 74592-9 ####[facility] ([id number])[address] [place] [address] 397[address]WDT/1.73 sq M.predicted among non-blacks MDRD (S/P/Bld) [Vol rate/Area]65 mL/min/{1.73_m2}Normal>59ProBaylor Scott & White Medical Center – GrapevineComment on above:Result Comment: Reported eGFR is based on theCKD-EPI 2020 equation that doesnot use a race coefficient.Performed By: #### KYLE YOST, 58618-7 ####[facility] ([id number])[address] [place] [address], [place] [address]Xsckdnc [Mass/Vol]115 mg/fJUttm85-80MypMvhgkoBaylor Scott & White Medical Center – GrapevineComment on above:Performed By: #### KYLE YOST, 60904-3 ####[facility] ([id number])[address] [place] [address]96[address]Vtgzwiqjm [Moles/Vol]4.3 mmol/LNormal 3.5-5.0ProBaylor Scott & White Medical Center – GrapevineComment on above:Performed By: #### KYLE YOST, 84839-9 ####[facility] ([id number])[address] [place] [address], [place] [address]Hsucjj [Moles/Vol]135 mmol/NRxxjcf990-584WseUeiger Fremont HospitalComment on above:Performed By: #### KYLE YOST, 02993-5 ####[facility] ([id number])[address] [place] [address] 398[address]Mbvb nitrogen [Mass/Vol]17 mg/dLNormal5-27ProBaylor Scott & White Medical Center – GrapevineComment on above:Performed By: #### KYLE YOST, 72185-6 ####[facility] ([id number])[address] [place] [address], [place] [address]CSY AND AUTO DIFF on 67-56-0892OBGFOKUJ BASOPHIL0.1 X10E9/LNormal0.0-0.2PCincinnati VA Medical Center Comment on above:Performed By: #### KYLE YOST, 47839-5 ####[facility] ([id number])[address] [place] [address] 369[address]VNRVJCWE NEUTROPHIL6.7 X10E9/LHigh1.5-6.6ProBaylor Scott & White Medical Center – GrapevineComment on above: Performed By: #### KYLE YOST, 54609-4 ####[facility] ([id number])[address] [place] [address] 86[address]Qcksjgzpc/100 WBC (Bld)1.5 %NormalProBaylor Scott & White Medical Center – GrapevineComment on above:Performed By: #### KYLE YOST, 48845-6 ####[facility] ([id number])[address] [place] [address]59[address]Qufdxucakzu (Bld) [#/Vol]0.5 10*3/uLHigh 0.0-0.4ProBaylor Scott & White Medical Center – GrapevineComment on above:Performed By: #### KYLE YOST, 19500-5 ####[facility] ([id number])[address] [place] [address] 04018Rgwuyksqwod/100 WBC (Bld)5.3 %NormalMorrow County HospitalComment on above:Performed By: #### KYLE YOST, 98198-4 ####[facility] ([id number])[address] [place] [address] 24237Uiqnjmfbsef distribution width (RBC) [Ratio]16.9 %High11.5-15.0ProBaylor Scott & White Medical Center – GrapevineComment on above:Performed By: #### CBCKY[address], 14771-6 ####[facility] ([id number])[address] [place] [address] 18672Xnzfdjmfcp (Bld) [Volume fraction]39.4 %Gcfvcr93-24 [facility] CenterComment on above:Performed By: #### KYLE YOST, 22509-6 ####[facility] ([id number])[address] [place] [address] 38622Gzrrxrzltz (Bld) [Mass/Vol]12.9 g/dZGohebm04.7-15.5 [facility] CenterComment on above:Performed By: #### KYLE YOST, 14597-3 ####[facility] ([id number])[address] [place] [address] 78757Oiacbmirjll (Bld) [#/Vol]1.9 10*3/uLNormal1.0-3.5[facility] Medical CenterComment on above:Performed By: #### KYLE YOST, 13413-1 ####[facility] ([id number])[address] [place] [address] 18486Odrttumzntf/100 WBC (Bld)18.9 %NormalProBaylor Scott & White Medical Center – GrapevineComment on above:Performed By: #### KYLE YOST, 60855-4 ####[facility] ([id number])[address] [place] [address] 71395XDV (RBC) [Entitic mass]29.0 jeGehvek96-52EnzXinqclMorrow County HospitalComment on above:Performed By: #### KYLE YOST, 61841-2 ####[facility] ([id number])[address] [place] [address] 73498QGLX (RBC) [Mass/Vol]32.7 g/jNOmcwql33-18TagBqqqdjBaylor Scott & White Medical Center – GrapevineComment on above: Performed By: #### KYLE YOST, 73918-3 ####[facility] ([id number])[address] [place] [address] 66615RHG (RBC) [Entitic vol]89 oQVpvyum20-299GocOqxckt [facility]remont HospitalComment on above: Performed By: #### KYLE YOST, 08068-4 ####[facility] ([id number])[address] [place] [address] 90243Icddgehnz (Bld) [#/Vol]0.7 10*3/uLNormal0-0.9M[facility] County HospitalComment on above: Performed By: #### KYLE YOST, 09782-8 ####[facility] ([id number])[address] [place] [address] 19667Ddcakfeyj/100 WBC (Bld)6.7 %NormalProBaylor Scott & White Medical Center – GrapevineComment on above:Performed By: #### KYLE YOST, 90869-2 ####[facility] ([id number])[address] [place] [address] 46510Dkwnlcsnqwf/100 WBC (Bld)67.6 %Normal ProMMarina Del Rey HospitalComment on above:Performed By: #### KYLE YOST, 36112-1 ####[facility] ([id number])[address] [place] [address] 46003Wwjpkttt mean volume (Bld) [Entitic vol]7.2 fLNormal7-12 [facility] HospitalComment on above:Performed By: #### KYLE YOST, 86461-0 ####[facility] ([id number])[address] [place] [address] 53825Msobtcicj (Bld) [#/Vol]292 10*3/tPKkpdel872-268NvlXhyebc [facility] HospitalComment on above:Performed By: #### CBCAriana, BMP, 35010-6 ####[facility] ([id number])[address] [place] [address] 27834CAG COUNT4.45 X10E12/LNormal3.80-5.20ProBaylor Scott & White Medical Center – GrapevineComment on above:Performed By: #### PRIYANK, BMP, 12495-3 ####[facility] ([id number])[address] [place] [address] 06624EGL (Bld) [#/Vol]9.9 10*3/uLNormal4.0-11.0M[facility] County HospitalComment on above:Performed By: #### KYLE YOST, 23820-5 ####[facility] ([id number])[address] [place] [address] 43199LY CTA ABD AND PELVISon [id number] CTA ABD AND PELVISNormalProOhiohealth Doctors Hospitalca [facility] Medical CenterCT CTA CHESTon [id number] CTA CHESTNormalMorrow County HospitalTroponin I.cardiac High sensitivity method [Mass/Vol]on HOUR TROP I, HIGH SENSITIVITY4 ng/LNormal<16ProBaylor Scott & White Medical Center – GrapevineComment on above:Performed By: #### [id number] ####[facility] ([id number])[address] [place] [address] 86269DGSINTBK I, HIGH SENSITIVITY3 ng/LNormal<16ProBaylor Scott & White Medical Center – GrapevineComment on above:Performed By: #### KYLE YOST, 29290-8 ####[facility] ([id number])[address] [place] [address] 03087LUIW/FLU A+B/RSV by NAAT/Molecularon 72-75-4639LILS/FLU A+B/RSV by NAAT/MolecularNormalMorrow County HospitalComment on above: Performed By: #### COVFLR ####[facility] ([id number])[address] [place] [address] 36396BA CHEST 1 VWon [id number] CHEST 1 VW NormalMorrow County HospitalBasi Metabolic PanelOrdered By: Luis Fernando Strauss on 94-97-4078Vacmy gap [Moles/Vol]10.8 mmol/LNormal6.0-15.0Henry County HospitalComment on above:Performed By: #### BMP #### [facility] [address] [place] [address] USACalcium [Mass/Vol]8.9 mg/dLNormal8.6-10.3FSt. Mary's Medical Center, Ironton CampusComment on above:Performed By: #### BMP #### [facility] [address] [place] [id number] USAChloride [Moles/Vol]98 mmol/RBhitnw20-676ZfopljqbtHenry County HospitalComment on above:Performed By: #### BMP #### [facility] [address] [place] [address] USACO2 [Moles/Vol]35.0 mmol/LHigh21.0-31.0Henry County HospitalComment on above:Performed By: #### BMP #### [facility] [address] [place] [address] USACreatinine [Mass/Vol]0.89 mg/dLNormal0.60-1.20Henry County HospitalComment on above:Performed By: #### BMP #### [facility] [address] [place] [address] USAGlucose [Mass/Vol]95 mg/eNTklxse59-964BqjasdcmaHenry County HospitalComment on above:Result Comment: Random Glucose Reference Range is dependent on time and content of last meal. Glucose of more than 200 mg/dL in a nonstressed, ambulatory subject supports the diagnosis of Diabetes Mellitus. ADA recommended reference rangePerformed By: #### BMP #### [facility] [address] [place] [address] USAADA recommended reference rangeRandom Glucose Reference Range is dependent on time and content of last meal. Glucose of more than 200 mg/dL in a nonstressed, ambulatory subject supports the diagnosisof Diabetes Mellitus.Potassium [Moles/Vol]4.8 mmol/LNormal3.5-5.1FSt. Mary's Medical Center, Ironton CampusComment on above:Performed By: #### BMP #### [facility] [address] [place] [id number] USASodium [Moles/Vol]139 mmol/HRnqlpa036-047KheunobruHenry County HospitalComment on above:Performed By: #### BMP #### [place] [address] USAUrea nitrogen [Mass/Vol]11 mg/dLNormal7-Henry County HospitalComment on above:Performed By: #### BMP #### [place] [address] USABasic Metabolic Panelon 67-52-5640Nuxxbynruy Clr Calc Emkvrtyv82.49NormHCA Florida JFK North Hospital Physician GroupComment on above:Result Comment: PERFORMED BY: [place] [address] PATHOLOGIST STRIP CATCHER JOSÉ MIGUEL RON M.D.Performed By: #### BMP #### [place] [address] USAGFR/1.73 sq M.predicted MDRD (S/P/Bld) [Vol rate/Area] mL/min/{1.73_m2}NormalThe [facility] Physician Forrest General HospitalComment on above:Performed By: #### BMP #### [place] [address] USAComplete Blood Count Auto DiffOrdered By: Ziggy Barraza on 42-50-3037Kyyodhtem (Bld) [#/Vol]0.1 10*3/uLNormal0.0-0.2FSt. Mary's Medical Center, Ironton CampusComment on above:Result Comment: PERFORMED BY: [place] [address] PATHOLOGIST STRIP CATCHER JOSÉ MIGUEL RON M.D.Performed By: #### RESP PANEL UPP., BIOFIRECOVNOTDE #### [place] [address] USABasophils/100 WBC (Bld)2.4 %Normal.Henry County HospitalComment on above:Performed By: #### RESP PANEL UPP., BIOFIRECOVNOTDE #### [place] [address] USAEosinophils (Bld) [#/Vol]0.2 10*3/uLNormal0.0-0.45 Henry County HospitalComment on above:Performed By: #### RESP PANEL UPP., BIOFIRECOVNOTDE #### [place] [address] USAEosinophils/100 WBC (Bld)4.2 %Normal.Henry County HospitalComment on above:Performed By: #### RESP PANEL UPP., BIOFIRECOVNOTDE #### [place] [address] USAErythrocyte distribution width (RBC) [Ratio]19.9 %High 11.9-15.3FSt. Mary's Medical Center, Ironton CampusComment on above:Performed By: #### RESP PANEL UPP., BIOFIRECOVNOTDE #### [place] [address] USAHematocrit (Bld) [Volume fraction]27.5 %Low34.0-46.4 Henry County HospitalComment on above:Performed By: #### RESP PANEL UPP., BIOFIRECOVNOTDE #### [place] [address] USAHemoglobin (Bld) [Mass/Vol]8.9 g/dLLow11.8-15.4FSt. Mary's Medical Center, Ironton CampusComment on above:Performed By: #### RESP PANEL UPP., BIOFIRECOVNOTDE #### [place] [address] USALymphocytes (Bld) [#/Vol]1.0 10*3/uLNormal1.00-4.8 Henry County HospitalComment on above:Performed By: #### RESP PANEL UPP., BIOFIRECOVNOTDE #### [place] [address] USALymphocytes/100 WBC (Bld)21.7 %Normal.Henry County HospitalComment on above:Performed By: #### RESP PANEL UPP., BIOFIRECOVNOTDE #### Fire[address] Scott StreetH (RBC) [Entitic mass]30.5 ujZuhkgb46.7-34.3FSt. Mary's Medical Center, Ironton CampusComment on above:Performed By: #### RESP PANEL UPP., BIOFIRECOVNOTDE #### [place] [address] USAMCV (RBC) [Entitic vol]93.9 oSBkzrqv86-087BjjzicqtlHenry County HospitalComment on above:Performed By: #### RESP PANEL UPP., BIOFIRECOVNOTDE #### [place] [address] USAMonocytes (Bld) [#/Vol]0.3 10*3/uLNormal0.0-0.8Henry County HospitalComment on above:Performed By: #### RESP PANEL UPP., BIOFIRECOVNOTDE #### [place] [address] USAMonocytes/100 WBC (Bld)7.3 %Normal.Henry County HospitalComment on above:Performed By: #### RESP PANEL UPP., BIOFIRECOVNOTDE #### [place] [address] USANeutrophils (Bld) [#/Vol]3.0 10*3/uLNormal1.8-7.7FSt. Mary's Medical Center, Ironton CampusComment on above:Performed By: #### RESP PANEL UPP., BIOFIRECOVNOTDE #### [place] [address] USANeutrophils/100 WBC (Bld)64.4 %Normal.Henry County HospitalComment on above:Performed By: #### RESP PANEL UPP., BIOFIRECOVNOTDE #### [place] [address] USAPlatelet mean volume (Bld) [Entitic vol]7.7 fLNormal 6.3-10.7FSt. Mary's Medical Center, Ironton CampusComment on above:Performed By: #### RESP PANEL UPP., BIOFIRECOVNOTDE #### [facility] [address] [place] [address] USAPlatelets (Bld) [#/Vol]232 10*3/aDHywegt318-039GtrcgbfmcHenry County HospitalComment on above:Performed By: #### RESP PANEL UPP., BIOFIRECOVNOTDE #### [place] [address] USARBC (Bld) [#/Vol]2.93 10*6/uLLow3.60-5.00Henry County HospitalComment on above:Performed By: #### RESP PANEL UPP., BIOFIRECOVNOTDE #### [place] [address] USAWBC (Bld) [#/Vol]4.7 10*3/uLNormal3.8-11.6FSt. Mary's Medical Center, Ironton CampusComment on above:Performed By: #### RESP PANEL UPP., BIOFIRECOVNOTDE #### [place] [address] USAComplete Blood Count Auto Diffon 69-34-9723Giwx Corpuscular HGB Conc32.5 g/lRBpejve41.0-35.0The [facility] Physician GroupComment on above:Performed By: #### RESP PANEL UPP., BIOFIRECOVNOTDE #### [place] [address] USANRBC%0.2 /100{WBC}Normal0-0.5The [facility], [facility] Physician Group Comment on above:Performed By: #### RESP PANEL UPP., BIOFIRECOVNOTDE #### [place] [address] USALeukocytes [#/volume] corrected for nucleated erythrocytes in Blood by Automated counOrdered By: Ziggy Barraza on 52-78-5134ITW corrected for nucl RBC Auto (Bld) [#/Vol]4.7 10*3/uL3.8-11.6FSt. Mary's Medical Center, Ironton CampusMCHC Auto (RBC) [Mass/Vol]Ordered By: Ziggy Barraza on 81-78-6020ZJFO (RBC) [Mass/Vol]32.5 g/dL32.0-35.0Henry County HospitalNo Panel InformationOrdered By: Luis Fernando Strauss on 04-20-6099Jmsiyroyb GFR (CKD-EPI)> 60.0 mL/MinHenry County HospitalPharmacy Creatinine Clearance (Chem60.49Henry County HospitalNucleated erythrocytes [Presence] in Blood by Automated countOrdered By: Ziggy Barraza on 07-98-2816Jajghvzan RBC Auto Ql (Bld)0.2 /100{WBC}0-0.5FSt. Mary's Medical Center, Ironton CampusBasic Metabolic Panelon 50-83-7464Frwii gap [Moles/Vol]9.9 mmol/L Normal6.0-15.0The [facility] Physician GroupComment on above:Performed By: #### RESP PANEL UPP., BIOFIRECOVNOTDE #### [facility] [address] [place] [address] USACalcium [Mass/Vol]8.3 mg/dLLow8.6-10.3The [facility] Physician GroupComment on above:Performed By: #### RESP PANEL UPP., BIOFIRECOVNOTDE #### [facility] [address] [place] [address] USAChloride [Moles/Vol]97 mmol/MEww90-041Fwx [facility] Physician GroupComment on above:Performed By: #### RESP PANEL UPP., BIOFIRECOVNOTDE #### [facility] [address] [place] [address] USACO2 [Moles/Vol]35.0 mmol/LHigh21.0-31.0The [facility] Physician GroupComment on above:Performed By: #### RESP PANEL UPP., BIOFIRECOVNOTDE #### [facility] [address] [place] [address] USACreatinine [Mass/Vol]0.89 mg/dLNormal0.60-1.20The [facility] Physician GroupComment on above:Performed By: #### RESP PANEL UPP., BIOFIRECOVNOTDE #### [place] [address] USACreatinine Clr Calc Vcftydvv20.10NormalThe [facility], [facility] Physician GroupComment on above:Result Comment: PERFORMED BY: [place] [address] PATHOLOGIST STRIP CATCHER JOSÉ MIGUEL RON M.D.Performed By: #### RESP PANEL UPP., BIOFIRECOVNOTDE #### [place] [address] USAGFR/1.73 sq M.predicted MDRD (S/P/Bld) [Vol rate/Area] mL/min/{1.73_m2}NormalThe [facility], [facility] Physician GroupComment on above:Performed By: #### RESP PANEL UPP., BIOFIRECOVNOTDE #### [place] [address] USAGlucose [Mass/Vol]98 mg/nGNyfvtv20-292Bpi [facility] Physician GroupComment on above:Result Comment: Random Glucose Reference Range is dependent on time and content of last meal. Glucose of more than 200 mg/dL in a nonstressed, ambulatory subject supports the diagnosis of Diabetes Mellitus. ADA recommended reference rangePerformed By: #### RESP PANEL UPP., BIOFIRECOVNOTDE #### [place] [address] USAPotassium [Moles/Vol]4.9 mmol/LNormal3.5-5.1The [facility] Physician GroupComment on above:Performed By: #### RESP PANEL UPP., BIOFIRECOVNOTDE #### [place] [address] USASodium [Moles/Vol]137 mmol/ZMrhkvi999-395Owq [facility] Physician GroupComment on above:Performed By: #### RESP PANEL UPP., BIOFIRECOVNOTDE #### [place] [address] USAUrea nitrogen [Mass/Vol]12 mg/dLNormal7-25The [facility], [facility] Physician GroupComment on above:Performed By: #### RESP PANEL UPP., BIOFIRECOVNOTDE #### [place] [address] USAComplete Blood Count Auto Diffon 35-44-0033Qbxdfsxdw (Bld) [#/Vol]0.1 10*3/uLNormal0.0-0.2The [facility] Physician GroupComment on above: Result Comment: PERFORMED BY: [place] [address] PATHOLOGIST STRIP CATCHER JOSÉ MIGUEL RON M.D.Performed By: #### RESP PANEL UPP., BIOFIRECOVNOTDE #### [place] [address] USABasophils/100 WBC (Bld)1.4 %Normal.The [facility] Physician GroupComment on above:Performed By: #### RESP PANEL UPP., BIOFIRECOVNOTDE #### [place] [address] USAEosinophils (Bld) [#/Vol]0.2 10*3/uLNormal0.0-0.45The [facility] Physician GroupComment on above:Performed By: #### RESP PANEL UPP., BIOFIRECOVNOTDE #### [place] [address] USAEosinophils/100 WBC (Bld)3.8 %Normal.The [facility] Physician GroupComment on above:Performed By: #### RESP PANEL UPP., BIOFIRECOVNOTDE #### [place] [address] USAErythrocyte distribution width (RBC) [Ratio]20.9 %High 11.9-15.3The [facility] Physician GroupComment on above:Performed By: #### RESP PANEL UPP., BIOFIRECOVNOTDE #### [place] [address] USAHematocrit (Bld) [Volume fraction]24.6 %Low34.0-46.4The [facility] Physician GroupComment on above:Performed By: #### RESP PANEL UPP., BIOFIRECOVNOTDE #### [place] [address] USAHemoglobin (Bld) [Mass/Vol]7.9 g/dLLow11.8-15.4The [facility] Physician GroupComment on above:Performed By: #### RESP PANEL UPP., BIOFIRECOVNOTDE #### [place] [address] USALymphocytes (Bld) [#/Vol]1.2 10*3/uLNormal1.00-4.8The [facility] Physician GroupComment on above:Performed By: #### RESP PANEL UPP., BIOFIRECOVNOTDE #### [place] [address] USALymphocytes/100 WBC (Bld)22.7 %Normal.The [facility] Physician GroupComment on above:Performed By: #### RESP PANEL UPP., BIOFIRECOVNOTDE #### [place] [address] USAMCH (RBC) [Entitic mass]30.3 vyYcaidx53.7-34.3The [facility] Physician GroupComment on above:Performed By: #### RESP PANEL UPP., BIOFIRECOVNOTDE #### [place] [address] USAMCV (RBC) [Entitic vol]94.3 eOOunptg69-629Haj [facility] Physician GroupComment on above:Performed By: #### RESP PANEL UPP., BIOFIRECOVNOTDE #### [place] [address] USAMean Corpuscular HGB Conc32.1 g/nBBvuxjg72.0-35.0The [facility] Physician GroupComment on above:Performed By: #### RESP PANEL UPP., BIOFIRECOVNOTDE #### [place] [address] USAMonocytes (Bld) [#/Vol]0.4 10*3/uLNormal0.0-0.8The [facility] Physician GroupComment on above:Performed By: #### RESP PANEL UPP., BIOFIRECOVNOTDE #### [facility] [address] [place] [address] USAMonocytes/100 WBC (Bld)7.6 %Normal.The [facility] Physician GroupComment on above:Performed By: #### RESP PANEL UPP., BIOFIRECOVNOTDE #### [facility] [address] [place] [address] USANeutrophils (Bld) [#/Vol]3.3 10*3/uLNormal1.8-7.7The [facility] Physician GroupComment on above:Performed By: #### RESP PANEL UPP., BIOFIRECOVNOTDE #### [place] [address] USANeutrophils/100 WBC (Bld)64.5 %Normal.The [facility] Physician GroupComment on above:Performed By: #### RESP PANEL UPP., BIOFIRECOVNOTDE #### [place] [address] USANRBC%0.1 /100{WBC}Normal0-0.5The [facility]ician Group Comment on above:Performed By: #### RESP PANEL UPP., BIOFIRECOVNOTDE #### [place] [address] USAPlatelet mean volume (Bld) [Entitic vol]7.8 fLNormal 6.3-10.7The [facility] Physician GroupComment on above:Performed By: #### RESP PANEL UPP., BIOFIRECOVNOTDE #### [place] [address] USAPlatelets (Bld) [#/Vol]224 10*3/uHPrfekm546-609Wum [facility] Physician GroupComment on above:Performed By: #### RESP PANEL UPP., BIOFIRECOVNOTDE #### [facility] [address] [place] [address] USARBC (Bld) [#/Vol]2.61 10*6/uLLow3.60-5.00The [facility] Physician GroupComment on above:Performed By: #### RESP PANEL UPP., BIOFIRECOVNOTDE #### [place] [address] USAWBC (Bld) [#/Vol]5.2 10*3/uLNormal3.8-11.6The [facility] Physician GroupComment on above:Performed By: #### RESP PANEL UPP., BIOFIRECOVNOTDE #### [place] [address] USAAlbumin [Mass/volume] in Serum or Plasma by Bromocresol green (BCG) dye binding methoOrdered By: Nabila Rao on 33-92-2323Ltcvgnb BCG dye [Mass/Vol]2.9 g/dLLow3.5-5.7FSt. Mary's Medical Center, Ironton CampusComplete Blood Count Auto Diffon 64-16-5326Mrnojzgld (Bld) [#/Vol]0.1 10*3/uLNormal0.0-0.2The [facility] Physician GroupComment on above:Result Comment: PERFORMED BY: [place] [address] PATHOLOGIST STRIP CATCHER JOSÉ MIGUEL RON M.D.Performed By: #### RESP PANEL UPP., BIOFIRECOVNOTDE #### [place] [address] USABasophils/100 WBC (Bld)1.5 %Normal.The [facility] Physician GroupComment on above:Performed By: #### RESP PANEL UPP., BIOFIRECOVNOTDE #### [place] [address] USAEosinophils (Bld) [#/Vol]0.2 10*3/uLNormal0.0-0.45The [facility] Physician GroupComment on above:Performed By: #### RESP PANEL UPP., BIOFIRECOVNOTDE #### [place] [address] USAEosinophils/100 WBC (Bld)2.9 %Normal.The [facility] Physician GroupComment on above:Performed By: #### RESP PANEL UPP., BIOFIRECOVNOTDE #### [place] [address] USAErythrocyte distribution width (RBC) [Ratio]20.9 %High 11.9-15.3The [facility] Physician GroupComment on above:Performed By: #### RESP PANEL UPP., BIOFIRECOVNOTDE #### [place] [address] USAHematocrit (Bld) [Volume fraction]23.6 %Low34.0-46.4The [facility] Physician GroupComment on above:Performed By: #### RESP PANEL UPP., BIOFIRECOVNOTDE #### [place] [address] USAHemoglobin (Bld) [Mass/Vol]7.7 g/dLLow11.8-15.4The [facility] Physician GroupComment on above:Performed By: #### RESP PANEL UPP., BIOFIRECOVNOTDE #### [place] [address] USALymphocytes (Bld) [#/Vol]1.2 10*3/uLNormal1.00-4.8The [facility] Physician GroupComment on above:Performed By: #### RESP PANEL UPP., BIOFIRECOVNOTDE #### [place] [address] USALymphocytes/100 WBC (Bld)20.4 %Normal.The [facility] Physician GroupComment on above:Performed By: #### RESP PANEL UPP., BIOFIRECOVNOTDE #### [place] [address] USAMCH (RBC) [Entitic mass]30.4 xnSusukg36.7-34.3The [facility] Physician GroupComment on above:Performed By: #### RESP PANEL UPP., BIOFIRECOVNOTDE #### [place] [address] USAMCV (RBC) [Entitic vol]93.4 oYPouyox30-064Tcd [facility] Physician GroupComment on above:Performed By: #### RESP PANEL UPP., BIOFIRECOVNOTDE #### [place] [address] USAMean Corpuscular HGB Conc32.6 g/nALvdrmx18.0-35.0The [facility] Physician GroupComment on above:Performed By: #### RESP PANEL UPP., BIOFIRECOVNOTDE #### [place] [address] USAMonocytes (Bld) [#/Vol]0.5 10*3/uLNormal0.0-0.8The [facility] Physician GroupComment on above:Performed By: #### RESP PANEL UPP., BIOFIRECOVNOTDE #### [place] [address] USAMonocytes/100 WBC (Bld)9.3 %Normal.The [facility] Physician GroupComment on above:Performed By: #### RESP PANEL UPP., BIOFIRECOVNOTDE #### [place] [address] USANeutrophils (Bld) [#/Vol]3.7 10*3/uLNormal1.8-7.7The [facility] Physician GroupComment on above:Performed By: #### RESP PANEL UPP., BIOFIRECOVNOTDE #### [place] [address] USANeutrophils/100 WBC (Bld)65.9 %Normal.The [facility] Physician GroupComment on above:Performed By: #### RESP PANEL UPP., BIOFIRECOVNOTDE #### [place] [address] USANRBC%0.2 /100{WBC}Normal0-0.5The [facility] Comment on above:Performed By: #### RESP PANEL UPP., BIOFIRECOVNOTDE #### [place] [address] USAPlatelet mean volume (Bld) [Entitic vol]7.7 fLNormal 6.3-10.7The [facility] Physician GroupComment on above:Performed By: #### RESP PANEL UPP., BIOFIRECOVNOTDE #### [place] [address] USAPlatelets (Bld) [#/Vol]237 10*3/bAYikbyv339-932Amq [facility] Physician GroupComment on above:Performed By: #### RESP PANEL UPP., BIOFIRECOVNOTDE #### [place] [address] USARBC (Bld) [#/Vol]2.53 10*6/uLLow3.60-5.00The [facility] Physician GroupComment on above:Performed By: #### RESP PANEL UPP., BIOFIRECOVNOTDE #### [place] [address] USAWBC (Bld) [#/Vol]5.7 10*3/uLNormal3.8-11.6The [facility] Physician GroupComment on above:Performed By: #### RESP PANEL UPP., BIOFIRECOVNOTDE #### [place] [address] USAComprehensive Metabolic Panelon 25-55-9740Hdtwupm [Mass/Vol]2.9 g/dLLow3.5-5.7The [facility] Physician GroupComment on above: Performed By: #### RESP PANEL UPP., BIOFIRECOVNOTDE #### [place] [address] USAAnion gap [Moles/Vol]9.1 mmol/LNormal6.0-15.0The [facility] Physician GroupComment on above:Performed By: #### RESP PANEL UPP., BIOFIRECOVNOTDE #### [place] [address] USACalcium [Mass/Vol]8.3 mg/dLLow8.6-10.3The [facility], [facility] Physician GroupComment on above:Performed By: #### RESP PANEL UPP., BIOFIRECOVNOTDE #### [facility] [address] [place] [address] USAChloride [Moles/Vol]100 mmol/MYzemza87-771Ylj [facility] Physician GroupComment on above:Performed By: #### RESP PANEL UPP., BIOFIRECOVNOTDE #### [place] [address] USACO2 [Moles/Vol]32.6 mmol/LHigh21.0-31.0The [facility] Physician GroupComment on above:Performed By: #### RESP PANEL UPP., BIOFIRECOVNOTDE #### [place] [address] USACreatinine [Mass/Vol]0.79 mg/dLNormal0.60-1.20The [facility] Physician GroupComment on above:Performed By: #### RESP PANEL UPP., BIOFIRECOVNOTDE #### [place] [address] USACreatinine Clr Calc Hbpliopr47.96NormalThe [facility] Physician GroupComment on above:Performed By: #### RESP PANEL UPP., BIOFIRECOVNOTDE #### [place] [address] USAGFR/1.73 sq M.predicted MDRD (S/P/Bld) [Vol rate/Area] mL/min/{1.73_m2}NormalThe [facility], [facility] Physician GroupComment on above:Performed By: #### RESP PANEL UPP., BIOFIRECOVNOTDE #### [place] [address] USAGlucose [Mass/Vol]96 mg/zVUmnppa04-308Cfy [facility] Physician GroupComment on above:Result Comment: Random Glucose Reference Range is dependent on time and content of last meal. Glucose of more than 200 mg/dL in a nonstressed, ambulatory subject supports the diagnosis of Diabetes Mellitus. ADA recommended reference rangePerformed By: #### RESP PANEL UPP., BIOFIRECOVNOTDE #### [place] [address] USAPotassium [Moles/Vol]3.7 mmol/LNormal3.5-5.1The [facility] Physician GroupComment on above:Performed By: #### RESP PANEL UPP., BIOFIRECOVNOTDE #### [place] [address] USASodium [Moles/Vol]138 mmol/RDrhdha954-858Tez [facility] Physician GroupComment on above:Performed By: #### RESP PANEL UPP., BIOFIRECOVNOTDE #### [place] [address] USAUrea nitrogen [Mass/Vol]9 mg/dLNormal7-e [facility] Physician GroupComment on above:Performed By: #### RESP PANEL UPP., BIOFIRECOVNOTDE #### [place] [address] USAComprehensive Metabolic PanelOrdered By: Nabila Rao on 69-34-8096Bbomxqx/Globulin [Mass ratio]1.1 {ratio}CentervilleComment on above:Performed By: #### RESP PANEL UPP., BIOFIRECOVNOTDE #### [place] [address] USAALP [Catalytic activity/Vol]155 U/NQxmk62-887ZtyaudkmzHenry County HospitalComment on above:Performed By: #### RESP PANEL UPP., BIOFIRECOVNOTDE #### [place] [address] USAALT [Catalytic activity/Vol]13 U/LNormal7-52Henry County HospitalComment on above:Performed By: #### RESP PANEL UPP., BIOFIRECOVNOTDE #### [place] [address] USAAST [Catalytic activity/Vol]15 U/DMwdbvu93-82TdpgiovgzHenry County HospitalComment on above:Performed By: #### RESP PANEL UPP., BIOFIRECOVNOTDE #### [place] [address] USABilirubin [Mass/Vol]0.3 mg/dLNormal0.3-1.0Henry County HospitalComment on above:Performed By: #### RESP PANEL UPP., BIOFIRECOVNOTDE #### [place] [address] USAGlobulin (S) [Mass/Vol]2.6 g/dLNormalHenry County HospitalComment on above:Performed By: #### RESP PANEL UPP., BIOFIRECOVNOTDE #### [place] [address] USAProtein [Mass/Vol]5.5 g/dLLow6.4-8.9Henry County HospitalComment on above:Performed By: #### RESP PANEL UPP., BIOFIRECOVNOTDE #### [place] [address] USAFerritinOrdered By: Nabila Rao on 12-28-5954Pvhtgjyo [Mass/Vol]338.7 ng/pTJbnr77.0-306.8Henry County HospitalComment on above:Performed By: #### HS TROP, CK, BNP, BMP, CBC, PT, PTT #### [place] [address] USAFolate [Mass/volume] in Serum or PlasmaOrdered By: Nabila Rao on 37-24-9282Lfmiej [Mass/Vol]6.5 ng/mL>5.9Henry County HospitalComment on above:Folate reference range: >5.9 ng/mlThe WHO technical consultation on folate and vitamin r80oznrvyfmgbzu has determined that folate concentrations lessthan 4 ng/ml are considered deficient.Iron and TIBC Profileon 01-20-2024% Iron Tmlulnykhf35.3 %Fno65-70Bpz [facility] Physician GroupComment on above:Performed By: #### RESP PANEL UPP., BIOFIRECOVNOTDE #### [place] [address] USATotal Iron Binding Ukffwteb473 ug/dPTux050-217Kzr [facility] Physician GroupComment on above:Performed By: #### RESP PANEL UPP., BIOFIRECOVNOTDE #### [facility] [address] [place] [address] USAIron and TIBC ProfileOrdered By: Nabila Rao on 67-42-7468Wfib [Mass/Vol]24 ug/uCSbi42-505QbuhtfnrcHenry County Hospital Comment on above:Performed By: #### RESP PANEL UPP., BIOFIRECOVNOTDE #### [facility] [address] [place] [address] USATransferrin [Mass/Vol]166 mg/lQHrr023-598YptdwrbbhHenry County HospitalComment on above:Performed By: #### RESP PANEL UPP., BIOFIRECOVNOTDE #### [place] [address] USAIron binding capacity [Mass/volume] in Serum or Plasma Ordered By: Nabila Rao on 46-80-2212Swup binding capacity [Mass/Vol]232 ug/dL Vty885-305XjzidoednHenry County HospitalIron saturation [Mass Fraction] in Serum or PlasmaOrdered By: Nabila Rao on 79-45-8992Rqbh saturation [Mass fraction]10.3 %Fml21-97CafmypdgdHenry County HospitalMagnesiumOrdered By: Nabila Rao on 72-62-0571Jutfckubi [Mass/Vol]1.8 mg/dLLow1.9-2.7FSt. Mary's Medical Center, Ironton CampusComment on above:Performed By: #### RESP PANEL UPP., BIOFIRECOVNOTDE #### [facility] [address] [place] [address] USAPhosphorusOrdered By: Nabila Rao on 02-93-6082Jnchkdzfj [Mass/Vol]4.2 mg/dLNormal2.5-4.5FSt. Mary's Medical Center, Ironton CampusComment on above:Performed By: #### RESP PANEL UPP., BIOFIRECOVNOTDE #### [place] [address] USAThyroid Stimulating HormoneOrdered By: Nabila Rao on 87-79-3614XCA Qn3.03 m[IU]/LNormal0.45-5.33[facility] Comment on above:Result Comment: PERFORMED BY: [place] [address] PATHOLOGIST STRIP CATCHER JOSÉ MIGUEL RON M.D.Performed By: #### HS TROP, CK, BNP, BMP, CBC, PT, PTT #### [place] [id number] USATroponin I High Sensitivityon 72-67-6907Dpwmeayu I High Sensitivity8.4 pg/mLNormal0.0-15.0The [facility] Physician GroupComment on above: Result Comment: PERFORMED BY: [place] [address] PATHOLOGIST STRIP CATCHER JOSÉ MIGUEL RON M.D.Performed By: #### HS TROP, CK, BNP, BMP, CBC, PT, PTT #### [place] [id number] USATroponin I.cardiac [Mass/volume] in Serum or Plasma by Detection limit <= 0.01 ng/Ordered By: Nabila Rao on 47-63-5846Muyaumrc I.cardiac DL <= 0.01 ng/mL [Mass/Vol]8.4 pg/mL0.0-15.0Henry County HospitalUS venous duplex LE BIon 67-92-1338FX venous duplex LE [facility] Main [address] [address] Ultrasound Report Signed Patient: Jonatan Olivarez MR#: [id number] : 1960 Acct:[id number] Age/Sex: 63 / F ADM Date: 01/19/24 Loc: Room: [address] [place] [address] Type: ADM IN Attending Dr: Luis Fernando [...] Artur Guo MD01/20/2024 1:32 PM Dictation Location: [facility]-04 Tech: Kirsten Cespedes Transcribed By: [facility] 01/20/24 1332 Dictated By: Artur Guo MD 01/20/24 1329 Signed By: 01/20/24 1332[facility] Physician GroupVit. B12/Folate ProfileOrdered By: Nabila Rao on 43-03-9359Obcwrtpcs (Vitamin B12) [Mass/Vol]398 pg/mLNormal 180-914Henry County HospitalComment on above:Performed By: #### HS TROP, CK, BNP, BMP, CBC, PT, PTT #### [facility] [address] [place] [address] USAVit. B12/Folate Profileon 65-84-1569Msnoqx7.5 ng/mLNormal >5.9The [facility] Physician [facility] General HospitalComment on above:Result Comment: Folate reference range: >5.9 ng/ml The WHO technical consultation on folate and vitamin b12 deficiencies has determined that folate concentrations less than 4 ng/ml are considered deficient.Performed By: #### HS TROP, CK, BNP, BMP, CBC, PT, PTT #### [facility] [address] [place] [address] USAActivated partial thromboplastin time (aPTT) in platelet poor plasma by coagulation aOrdered By: Carlo Grimaldo on 56-84-5554nNIM Coag (PPP) [Time]31.2 s25.1-36.5FSt. Mary's Medical Center, Ironton CampusComment on above:A hematocrit value greater than 55% may lead to inaccurate results in coagulation testing. Patientshaving hematocrit values >55% require a special collection tube for coagulation studies. Please contact the laboratory at [phone] for redraw instructions.Automated basophil %Ordered By: Nabila Rao on 01-19-2024 Basophils/100 WBC (Bld)0.9 %Normal.Henry County HospitalComment on above:Performed By: #### RESP PANEL UPP., BIOFIRECOVNOTDE #### [place] [address] USAAutomated basophil countOrdered By: Nabila Rao on 44-57-7402Uqqwvopmk (Bld) [#/Vol]0.1 10*3/uLNormal0.0-0.2FSt. Mary's Medical Center, Ironton CampusComment on above:Result Comment: PERFORMED BY: [place] [address] PATHOLOGIST STRIP CATCHER JOSÉ MIGUEL RON M.D.Performed By: #### RESP PANEL UPP., BIOFIRECOVNOTDE #### [place] [address] USAAutomated blood monocyte countOrdered By: Nabila Rao on 33-87-1122Gcfisllaq (Bld) [#/Vol]0.5 10*3/uLNormal0.0-0.8Henry County HospitalComment on above:Performed By: #### RESP PANEL UPP., BIOFIRECOVNOTDE #### [place] [address] USAAutomated eosinophil %Ordered By: Nabila Rao on 32-83-9827Netjltyckny/100 WBC (Bld)2.2 %Normal.[facility] Comment on above:Performed By: #### RESP PANEL UPP., BIOFIRECOVNOTDE #### [place] [address] USAAutomated eosinophil countOrdered By: Nabila Rao on 28-34-6201Gpxugoulaoy (Bld) [#/Vol]0.2 10*3/uLNormal0.0-0.45Henry County HospitalComment on above:Performed By: #### RESP PANEL UPP., BIOFIRECOVNOTDE #### [facility] [address] [place] [address] USAAutomated monocyte %Ordered By: Nabila Rao on 01-19-2024 Monocytes/100 WBC (Bld)6.8 %Normal.Henry County HospitalComment on above:Performed By: #### RESP PANEL UPP., BIOFIRECOVNOTDE #### [place] [address] USAAutomated neutrophil %Ordered By: Nabila Rao on 90-12-9378Dsctpppvhuk/100 WBC (Bld)70.9 %Normal.Henry County HospitalComment on above:Performed By: #### RESP PANEL UPP., BIOFIRECOVNOTDE #### [place] [address] USABNP ser/plasOrdered By: Carlo Grimaldo on 01-19-2024 Natriuretic peptide B (Bld) [Mass/Vol]618.0 pg/mLHigh5-100Henry County HospitalComment on above:Result Comment: PERFORMED BY: [place] [address] PATHOLOGIST STRIP CATCHER JOSÉ MIGUEL RON M.D.Performed By: #### HS TROP, CK, BNP, BMP, CBC, PT, PTT #### [place] [address] USABasic Metabolic Panelon 41-98-8105Zozbbxxars Clr Calc Wmykjalc[address] [place] [address] Physician GroupComment on above:Result Comment: PERFORMED BY: [place] [address] PATHOLOGIST STRIP CATCHER JOSÉ MIGUEL RON M.D.Performed By: #### HS TROP, CK, BNP, BMP, CBC, PT, PTT #### [place] [address] USAGFR/1.73 sq M.predicted MDRD (S/P/Bld) [Vol rate/Area] mL/min/{1.73_m2}NormalThe [facility] Physician GroupComment on above:Performed By: #### HS TROP, CK, BNP, BMP, CBC, PT, PTT #### [facility] [address] [place] [address] USABioFire Not Detectedon 47-27-9487InaSpbm Not DetectedNot detectedNormalNot DetecteThe [facility], [facility] Physician GroupComment on above:Result Comment: This is a duplicate RP2.1 COVID (PCR) result to be used for statistical tracking purpose only. PERFORMED BY: [place] [address] PATHOLOGIST STRIP CATCHER JOSÉ MIGUEL RON M.D.Performed By: #### RESP PANEL UPP., BIOFIRECOVNOTDE #### [place] [address] USACOVID-19 Detected/Not DetectedOrdered By: Carlo Grimaldo on 62-37-0265MLEY-CoV-2 (COVID-19) RNA JANIA+non-probe Ql (Nph)Not detectedNot [facility] Hospital - AkronComment on above:This is a duplicate RP2.1 COVID (PCR) result to be used for statistical tracking purpose only.CT abdomen pelvis w conon 02-57-6218LU abdomen pelvis w [facility] Main [place] [address] [place] [address] CT Scan Report Signed Patient: Jonatan Olivarez MR#: [id number] : 1960 Acct:[id number] Age/Sex: 63 / F ADM Date: 01/19/24 Loc: ER Room: Type: [facility] ER Attending Dr: Copies to: Carlo Grimaldo DO Ordering Provider: Carlo Grimaldo DO Date of Service: 01/19/24 CT/CT angio chest PE protocol: f ([id number]) CT/CT abdomen pelvis w con: f CLINICAL [...] Lindsey Menchaca M.D.01/19/2024 7:09 PM Dictation Location: [place] [address] Transcribed By: [facility] 01/19/241908 Dictated By: Lindsey Menchaca MD 01/19/24 (more content not included)...NormalThe [facility] Physician GroupCalcium [Mass/volume] in Serum or PlasmaOrdered By: Carlo Grimaldo on 77-57-3160Qjpjzzn [Mass/Vol]8.7 mg/dLNormal8.6-10.3FSt. Mary's Medical Center, Ironton CampusComment on above:Performed By: #### HS TROP, CK, BNP, BMP, CBC, PT, PTT #### [facility] [address] [place] [address] USACarbon dioxide, total [Moles/volume] in Serum or Plasma Ordered By: Carlo Grimaldo on 61-94-1171KB3 [Moles/Vol]30.7 mmol/MWwzxei26.0-31.0 Henry County HospitalComment on above:Performed By: #### HS TROP, CK, BNP, BMP, CBC, PT, PTT #### [facility] [address] [place] [address] USAChloride [Moles/volume] in Serum or PlasmaOrdered By: Carlo Grimaldo on 99-99-1092Lmgrkvcg [Moles/Vol]97 mmol/BUcn68-928UlzionvvuHenry County HospitalComment on above:Performed By: #### HS TROP, CK, BNP, BMP, CBC, PT, PTT #### [place] [address] USAComplete Blood Count Auto Diffon 44-21-5462Odmzykbao (Bld) [#/Vol]0.1 10*3/uLNormal0.0-0.2The [facility] Physician GroupComment on above: Result Comment: PERFORMED BY: [place] [address] PATHOLOGIST STRIP CATCHER JOSÉ MIGUEL RON M.D.Performed By: #### HS TROP, CK, BNP, BMP, CBC, PT, PTT #### [place] [address] USABasophils/100 WBC (Bld)1.8 %Normal.The [facility] Physician GroupComment on above:Performed By: #### HS TROP, CK, BNP, BMP, CBC, PT, PTT #### [place] [address] USAEosinophils (Bld) [#/Vol]0.2 10*3/uLNormal0.0-0.45The [facility] Physician GroupComment on above:Performed By: #### HS TROP, CK, BNP, BMP, CBC, PT, PTT #### [place] [address] USAEosinophils/100 WBC (Bld)2.5 %Normal.The [facility] Physician GroupComment on above:Performed By: #### HS TROP, CK, BNP, BMP, CBC, PT, PTT #### [place] [address] USAErythrocyte distribution width (RBC) [Ratio]20.2 %High 11.9-15.3The [facility] Physician GroupComment on above:Performed By: #### HS TROP, CK, BNP, BMP, CBC, PT, PTT #### [address] [place] [address] USAHematocrit (Bld) [Volume fraction]23.6 %Low34.0-46.4The [facility] Physician GroupComment on above:Performed By: #### HS TROP, CK, BNP, BMP, CBC, PT, PTT #### [place] [address] USAHemoglobin (Bld) [Mass/Vol]7.7 g/dLLow11.8-15.4The [facility] Physician GroupComment on above:Performed By: #### HS TROP, CK, BNP, BMP, CBC, PT, PTT #### [place] [address] USALymphocytes (Bld) [#/Vol]1.2 10*3/uLNormal1.00-4.8The [facility] Physician GroupComment on above:Performed By: #### HS TROP, CK, BNP, BMP, CBC, PT, PTT #### [place] [address] USALymphocytes/100 WBC (Bld)19.9 %Normal.The [facility] Physician GroupComment on above:Performed By: #### HS TROP, CK, BNP, BMP, CBC, PT, PTT #### [address]H (RBC) [Entitic mass]30.4 llJqvuoy29.7-34.3The [facility] Physician GroupComment on above:Performed By: #### HS TROP, CK, BNP, BMP, CBC, PT, PTT #### [address] (RBC) [Entitic vol]92.7 jTOjogyr49-954Pzs [facility] Physician GroupComment on above:Performed By: #### HS TROP, CK, BNP, BMP, CBC, PT, PTT #### [place] [address] USAMean Corpuscular HGB Conc32.8 g/sEAhqkde21.0-35.0The [facility] Physician GroupComment on above:Performed By: #### HS TROP, CK, BNP, BMP, CBC, PT, PTT #### [place] [address] USAMonocytes (Bld) [#/Vol]0.5 10*3/uLNormal0.0-0.8The [facility] Physician GroupComment on above:Performed By: #### HS TROP, CK, BNP, BMP, CBC, PT, PTT #### [place] [address] USAMonocytes/100 WBC (Bld)7.9 %Normal.The [facility] Physician GroupComment on above:Performed By: #### HS TROP, CK, BNP, BMP, CBC, PT, PTT #### [place] [address] USANeutrophils (Bld) [#/Vol]4.2 10*3/uLNormal1.8-7.7The [facility] Physician GroupComment on above:Performed By: #### HS TROP, CK, BNP, BMP, CBC, PT, PTT #### [place] [address] USANeutrophils/100 WBC (Bld)67.9 %Normal.The [facility] Physician GroupComment on above:Performed By: #### HS TROP, CK, BNP, BMP, CBC, PT, PTT #### [place] [address] USANRBC%0.1 /100{WBC}Normal0-0.5The [facility]ician [facility] Comment on above:Performed By: #### HS TROP, CK, BNP, BMP, CBC, PT, PTT #### [place] [address] USAPlatelet mean volume (Bld) [Entitic vol]7.3 fLNormal 6.3-10.7The [facility] Physician GroupComment on above:Performed By: #### HS TROP, CK, BNP, BMP, CBC, PT, PTT #### [place] [address] USAPlatelets (Bld) [#/Vol]245 10*3/rCKuhtdl134-629Syv [facility] Physician GroupComment on above:Performed By: #### HS TROP, CK, BNP, BMP, CBC, PT, PTT #### [place] [address] USARBC (Bld) [#/Vol]2.54 10*6/uLLow3.60-5.00The [facility] Physician GroupComment on above:Performed By: #### HS TROP, CK, BNP, BMP, CBC, PT, PTT #### [place] [address] USAWBC (Bld) [#/Vol]6.1 10*3/uLNormal3.8-11.6The [facility] Physician GroupComment on above:Performed By: #### HS TROP, CK, BNP, BMP, CBC, PT, PTT #### [place] [address] USAMean Corpuscular HGB Conc32.9 g/vBIodjyg99.0-35.0The [facility] Physician [facility] HospitalComment on above:Performed By: #### RESP PANEL UPP., BIOFIRECOVNOTDE #### [place] [address] USAMonocytes/100 WBC (Bld)23.33 %High0.00-20.00The [facility] Physician GroupComment on above:Result Comment: For adults in ED, MDW > 20.0 may be associated with a higher risk of sepsis during the first 12 hrs of hospital admission The predictive value of MDW for identifying sepsis in patients with hematological abnormalities has not been establishedPerformed By: #### RESP PANEL UPP., BIOFIRECOVNOTDE #### [place] [address] USANRBC%0.2 /100{WBC}Normal0-0.5The [facility]ician Group Comment on above:Performed By: #### RESP PANEL UPP., BIOFIRECOVNOTDE #### [place] [address] USABasophils (Bld) [#/Vol]0.1 10*3/uLNormal0.0-0.2The [facility] Physician GroupComment on above:Result Comment: PERFORMED BY: [place] [address] PATHOLOGIST STRIP CATCHER JOSÉ MIGUEL RON M.D.Performed By: #### HS TROP, CK, BNP, BMP, CBC, PT, PTT #### [place] [address] USABasophils/100 WBC (Bld)1.7 %Normal.The [facility] Physician GroupComment on above:Performed By: #### HS TROP, CK, BNP, BMP, CBC, PT, PTT #### [place] [address] USAEosinophils (Bld) [#/Vol]0.2 10*3/uLNormal0.0-0.45The [facility] Physician GroupComment on above:Performed By: #### HS TROP, CK, BNP, BMP, CBC, PT, PTT #### [place] [address] USAEosinophils/100 WBC (Bld)2.2 %Normal.The [facility] Physician GroupComment on above:Performed By: #### HS TROP, CK, BNP, BMP, CBC, PT, PTT #### [place] [address] USAErythrocyte distribution width (RBC) [Ratio]20.5 %High 11.9-15.3The [facility] Physician GroupComment on above:Performed By: #### HS TROP, CK, BNP, BMP, CBC, PT, PTT #### [place] [address] USAHematocrit (Bld) [Volume fraction]26.3 %Low34.0-46.4The [facility] Physician GroupComment on above:Performed By: #### HS TROP, CK, BNP, BMP, CBC, PT, PTT #### [place] [address] USAHemoglobin (Bld) [Mass/Vol]8.6 g/dLLow11.8-15.4The [facility] Physician GroupComment on above:Performed By: #### HS TROP, CK, BNP, BMP, CBC, PT, PTT #### [place] [address] USALymphocytes (Bld) [#/Vol]1.2 10*3/uLNormal1.00-4.8The [facility] Physician GroupComment on above:Performed By: #### HS TROP, CK, BNP, BMP, CBC, PT, PTT #### [place] [address] USALymphocytes/100 WBC (Bld)16.0 %Normal.The [facility] Physician GroupComment on above:Performed By: #### HS TROP, CK, BNP, BMP, CBC, PT, PTT #### [address] (RBC) [Entitic mass]30.7 leBnfzcx22.7-34.3The [facility] Physician GroupComment on above:Performed By: #### HS TROP, CK, BNP, BMP, CBC, PT, PTT #### [address] (RBC) [Entitic vol]93.7 pZBxqggc32-414Pfq [facility] Physician GroupComment on above:Performed By: #### HS TROP, CK, BNP, BMP, CBC, PT, PTT #### [place] [address] USAMean Corpuscular HGB Conc32.8 g/iMCnledh97.0-35.0The [facility] Physician GroupComment on above:Performed By: #### HS TROP, CK, BNP, BMP, CBC, PT, PTT #### [place] [address] USAMonocytes (Bld) [#/Vol]0.5 10*3/uLNormal0.0-0.8The [facility] Physician GroupComment on above:Performed By: #### HS TROP, CK, BNP, BMP, CBC, PT, PTT #### [place] [address] USAMonocytes/100 WBC (Bld)20.14 %High0.00-20.00The [facility] Physician GroupComment on above:Result Comment: For adults in ED, MDW > 20.0 may be associated with a higher risk of sepsis during the first 12 hrs of hospital admissionPerformed By: #### HS TROP, CK, BNP, BMP, CBC, PT, PTT #### [place] [address] USAMonocytes/100 WBC (Bld)7.0 %Normal.The [facility] Physician GroupComment on above:Performed By: #### HS TROP, CK, BNP, BMP, CBC, PT, PTT #### [place] [address] USANeutrophils (Bld) [#/Vol]5.4 10*3/uLNormal1.8-7.7The [facility] Physician GroupComment on above:Performed By: #### HS TROP, CK, BNP, BMP, CBC, PT, PTT #### [place] [address] USANeutrophils/100 WBC (Bld)73.1 %Normal.The [facility] Physician GroupComment on above:Performed By: #### HS TROP, CK, BNP, BMP, CBC, PT, PTT #### [place] [address] USANRBC%0.1 /100{WBC}Normal0-0.5The [facility] Comment on above:Performed By: #### HS TROP, CK, BNP, BMP, CBC, PT, PTT #### [place] [address] USAPlatelet mean volume (Bld) [Entitic vol]7.7 fLNormal 6.3-10.7The [facility] Physician GroupComment on above:Performed By: #### HS TROP, CK, BNP, BMP, CBC, PT, PTT #### [place] [address] USAPlatelets (Bld) [#/Vol]282 10*3/qKKzxgib562-762Ktu [facility] Physician GroupComment on above:Performed By: #### HS TROP, CK, BNP, BMP, CBC, PT, PTT #### [facility] [address] [place] [address] USARBC (Bld) [#/Vol]2.81 10*6/uLLow3.60-5.00The [facility] Physician GroupComment on above:Performed By: #### HS TROP, CK, BNP, BMP, CBC, PT, PTT #### [facility] [address] [place] [address] USAWBC (Bld) [#/Vol]7.4 10*3/uLNormal3.8-11.6The [facility] Physician [facility] HospitalComment on above:Performed By: #### HS TROP, CK, BNP, BMP, CBC, PT, PTT #### [facility] [address] [place] [address] USACreatine kinase [Enzymatic activity/volume] in Serum or PlasmaOrdered By: Carlo Grimaldo on 83-88-9340RE [Catalytic activity/Vol]32 U/L Fpbkwy29-166QdagfbbpyHenry County HospitalComment on above:Performed By: #### HS TROP, CK, BNP, BMP, CBC, PT, PTT #### [facility] [address] [place] [address] USACreatinine [Mass/volume] in Serum or PlasmaOrdered By: Carlo Grimaldo on 02-16-0627Vtpdzelveu [Mass/Vol]0.87 mg/dLNormal0.60-1.20 [facility] HospitalComment on above:Performed By: #### HS TROP, CK, BNP, BMP, CBC, PT, PTT #### [facility] [address] [place] [address] USAECG 12 lead ECGon 91-38-4242DQX 12 lead ECGUNIVERSITY [facility] Main [place] [address] [place] [address] Electrocardiograph Report Signed Patient: Jonatan Olivarez MR#: [id number] : 1960 Acct:[id number] Age/Sex: 63 / F ADM Date: 01/19/24 Loc: Room: [address] [place] [address] Type: ADM IN Attending Dr: Nabila Rao [...] Signed By Nia Ng MD 12/31 04/[address] [place] [address] 12 lead [facility] Main [place] [address] [place] [address] Electrocardiograph Report Signed Patient: Jonatan Olivarez MR#: [id number] : 1960 Acct:[id number] Age/Sex: 63 / F ADM Date: 01/19/24 Loc: ER Room: Type: [facility] ER Attending Dr: Ordering Provider: Carlo Grimaldo [...] ECGs available Confirmed by CARLO GRIMALDO DO ([id number]) on 01/19/2024 8:03:55 PM Referred By: Electronically Signed By: CARLO GRIMALDO DO Transcribed By: MUS Signed By Carlo Grimaldo DO 01/18 2003NormalThe [facility]lands Physician GroupErythrocyte distribution width [Ratio] by Automated countOrdered By: Nabila Rao on 45-37-2404Wyadhxyccuy distribution width (RBC) [Ratio]19.7 %High11.9-15.3FSt. Mary's Medical Center, Ironton CampusComment on above:Performed By: #### RESP PANEL UPP., BIOFIRECOVNOTDE #### [facility] [address] [place] [id number] USAErythrocytes [#/volume] in Blood by Automated countOrdered By: Nabila Rao on 30-02-5241SCO (Bld) [#/Vol]2.63 10*6/uLLow3.60-5.00 [facility] HospitalComment on above:Performed By: #### RESP PANEL UPP., BIOFIRECOVNOTDE #### [place] [address] USAGlucose [Mass/volume] in Serum or PlasmaOrdered By: Carlo Grimaldo on 74-75-3537Qfasets [Mass/Vol]173 mg/qDEftu26-683XvamibqqlHenry County HospitalComment on above:ADA recommended reference rangeRandom Glucose Reference [...] BNP, BMP, CBC, PT, PTT #### [facility] [address] [place] [id number] USAHematocrit [Volume Fraction] of Blood by Automated count Ordered By: Nabila Rao on 36-24-1617Ismpyhszdm (Bld) [Volume fraction]24.3 % Low34.0-46.4FSt. Mary's Medical Center, [place] CampusComment on above:Performed By: #### RESP PANEL UPP., BIOFIRECOVNOTDE #### [place] [id number] USAHemoglobin [Mass/volume] in BloodOrdered By: Nabila Rao on 11-86-6450Onsatpmotk (Bld) [Mass/Vol]8.0 g/dLLow11.8-15.4FSt. Mary's Medical Center, Ironton CampusComment on above:Performed By: #### RESP PANEL UPP., BIOFIRECOVNOTDE #### [facility] [address] [place] [address] USAINR in Platelet poor plasma by Coagulation assayOrdered By: Carlo Grimaldo on 98-31-7824OPJ Coag (PPP) [Relative time]0.9 {INR}Normal [facility] County HospitalComment on above:INR Therapeutic Range A) Pre- and [...] CK, BNP, BMP, CBC, PT, PTT #### [facility] [address] [place] [address] USALactate [Moles/volume] in Serum or PlasmaOrdered By: Nabila Rao on 59-78-0801Fucknws [Moles/Vol]0.8 mmol/LNormal0.5-2.2FSt. Mary's Medical Center, Ironton CampusComment on above:Result Comment: PERFORMED BY: [place] [address] PATHOLOGIST STRIP CATCHER JOSÉ MIGUEL RON M.D.Performed By: #### RESP PANEL UPP., BIOFIRECOVNOTDE #### [facility] [address] [place] [address] USALeukocytes [#/volume] corrected for nucleated erythrocytes in Blood by Automated counOrdered By: Nabila Rao on 51-01-0276HKV corrected for nucl RBC Auto (Bld) [#/Vol]7.0 10*3/uL3.8-11.6FSt. Mary's Medical Center, Ironton CampusLeukocytes [#/volume] in Blood by Automated countOrdered By: Nabila Rao on 21-95-2331VAP (Bld) [#/Vol]7.0 10*3/uLNormal3.8-11.6FSt. Mary's Medical Center, Iront[place] CampusComment on above:Performed By: #### RESP PANEL UPP., BIOFIRECOVNOTDE #### [place] [address] USALymphocytes [#/volume] in Blood by Automated countOrdered By: Nabila Rao on 43-10-0962Kmtblnayoow (Bld) [#/Vol]1.3 10*3/uLNormal1.00-4.8 [facility] HospitalComment on above:Performed By: #### RESP PANEL UPP., BIOFIRECOVNOTDE #### [place] [address] USALymphocytes/100 leukocytes in Blood by Automated count Ordered By: Nabila Rao on 38-90-4837Aqgznxdndlv/100 WBC (Bld)19.2 %Normal. [facility] County HospitalComment on above:Performed By: #### RESP PANEL UPP., BIOFIRECOVNOTDE #### [address] [Entitic mass] by Automated countOrdered By: Nabila Rao on 82-82-1661MNN (RBC) [Entitic mass]30.4 sgDuefpi06.7-34.3FSt. Mary's Medical Center, [place]ont[place] CampusComment on above:Performed By: #### RESP PANEL UPP., BIOFIRECOVNOTDE #### [address] Auto (RBC) [Mass/Vol]Ordered By: Nabila Rao on 76-24-0769NRXM (RBC) [Mass/Vol]32.9 g/dL32.0-35.0Henry County HospitalMCV [Entitic volume] by Automated countOrdered By: Nabila Rao on 92-38-7601ERT (RBC) [Entitic vol]92.4 nXWitmhc43-851UisafzzeuHenry County HospitalComment on above:Performed By: #### RESP PANEL UPP., BIOFIRECOVNOTDE #### [facility] [address] [place] [address] USAMonocyte distribution width [Entitic volume] in Blood by AutomatedOrdered By: Nabila Rao on 06-51-4687Nzgwercm distribution width Auto (Bld) [Entitic vol]23.33 %High0.00-20.00Henry County HospitalComment on above:For adults in ED, MDW > 20.0 may be associated with a higher risk of sepsis during the first 12 hrs of hospital admissionThe predictive value of MDW for identifying sepsis in patients with hematological abnormalities has not been establishedNeutrophils [#/volume] in Blood by Automated countOrdered By: Nabila Rao on 94-61-0947Ldxfnpkqgfd (Bld) [#/Vol]5.0 10*3/uLNormal1.8-7.7FSt. Mary's Medical Center, Iront[place] CampusComment on above:Performed By: #### RESP PANEL UPP., BIOFIRECOVNOTDE #### [facility] [address] [place] [id number] USANo Panel InformationOrdered By: Carlo Grimaldo on 55-69-4777Atkbt Occult Blood (JESS)Henry County HospitalEstimated GFR (CKD-EPI)> 60.0 mL/MinHenry County HospitalPharmacy Creatinine Clearance (Chem56.97Henry County HospitalNucleated erythrocytes [Presence] in Blood by Automated countOrdered By: Nabila Rao on 01-19-2024 Nucleated RBC Auto Ql (Bld)0.2 /100{WBC}0-0.5FSt. Mary's Medical Center, [place] Campus Partial Thromboplastin Timeon 56-34-2466eFAP Coag (Bld) [Time]31.2 sNormal 25.1-36.5The [facility] Physician GroupComment on above:Result Comment: A hematocrit value greater than 55% may lead to inaccurate results in coagulation testing. Patients having hematocrit values >55% require a special collection tube for coagulation studies. Please contact the laboratory at [phone] for redraw instructions. PERFORMED BY: [place] [address] PATHOLOGIST STRIP CATCHER JOSÉ MIGUEL RON M.D.Performed By: #### HS TROP, CK, BNP, BMP, CBC, PT, PTT #### [place] [address] USAPlatelet mean volume [Entitic volume] in Blood by Automated countOrdered By: Nabila Rao on 59-47-1152Temnuwru mean volume (Bld) [Entitic vol]7.7 fLNormal6.3-10.7FSt. Mary's Medical Center, Iront[place] CampusComment on above:Performed By: #### RESP PANEL UPP., BIOFIRECOVNOTDE #### [place] [address] USAPlatelets [#/volume] in Blood by Automated countOrdered By: Nabila Rao on 08-21-1280Gwgekmtsx (Bld) [#/Vol]251 10*3/kUUqyvxj827-321 [facility] HospitalComment on above:Performed By: #### RESP PANEL UPP., BIOFIRECOVNOTDE #### [place] [address] USAPotassium [Moles/volume] in Serum or PlasmaOrdered By: Carlo Grimaldo on 76-60-9908Qjetglsjg [Moles/Vol]3.5 mmol/LNormal3.5-5.1FSt. Mary's Medical Center, [place] CampusComment on above:Performed By: #### HS TROP, CK, BNP, BMP, CBC, PT, PTT #### [place] [address] USAProthrombin time (PT)Ordered By: Carlo Grimaldo on 26-09-1039LL Coag (PPP) [Time]10.4 sNormal9.0-12.9Henry County HospitalComment on above:A hematocrit value greater than 55% may lead to inaccurate results in coagulation testing. Patientshaving hematocrit values >55% require a special collection tube for coagulation studies. Please contact the laboratory at [phone] for redraw instructions.Result Comment: A hematocrit value greater than 55% may lead to inaccurate results in coagulation testing. Patients having hematocrit values >55% require a special collection tube for coagulation studies. Please contact the laboratory at [phone] for redraw instructions.Performed By: #### HS TROP, CK, BNP, BMP, CBC, PT, PTT #### [address] [address] [facility] HOSPITALRespiratory (Upper) Panel, PCRon 35-63-2254Hcidrqevmkq (Upper) Panel, PCRAdenovirus Not detected Bordetella parapertussis [...] Influenza A H3 Blank Space PERFORMED BY: [address] [address] PATHOLOGIST STRIP CATCHER JOSÉ MIGUEL RON M.D.[facility] Physician GroupComment on above:Performed By: #### RESP PANEL UPP., BIOFIRECOVNOTDE #### [facility] [address] [place] [id number] USARespiratory pathogens DNA and RNA panel - Nasopharynx by JANIA with non-probe detectionOrdered By: Carlo Grimaldo on 18-00-7488Osxtxrbcibt pathogens DNA and RNA panel JANIA+non-probe (Nph)[facility] Serum or plasma anion gap determinationOrdered By: Carlo Grimaldo on 01-19-2024 Anion gap [Moles/Vol]13.8 mmol/LNormal6.0-15.0[facility] Comment on above:Performed By: #### HS TROP, CK, BNP, BMP, CBC, PT, PTT #### [place] [address] USASodium [Moles/volume] in Serum or PlasmaOrdered By: Carlo Grimaldo on 41-10-7978Nrxmit [Moles/Vol]138 mmol/CDcomht697-611JimitdaxlHenry County HospitalComment on above:Performed By: #### HS TROP, CK, BNP, BMP, CBC, PT, PTT #### [place] [address] USAStool Occult Bl. Scr. (Guaiac)on 00-99-7192Wfeoh Occult Bl. Scr. (Guaiac)Occult Blood Negative for Occult Blood by Guaiac Methodology Reference range = Negative PERFORMED BY: [place] [address] PATHOLOGIST STRIP CATCHER JOSÉ MIGUEL RON M.D.[facility] Physician GroupComment on above:Performed By: #### HS TROP, CK, BNP, BMP, CBC, PT, PTT #### [place] [address] USATroponin I High Sensitivityon 76-25-9570Qtyxtkuu I High Twfzjzvyzah06.4 pg/mLHigh0.0-15.0The [facility] Physician GroupComment on above: Result Comment: PERFORMED BY: [place] [address] PATHOLOGIST STRIP CATCHER JOSÉ MIGUEL RON M.D.Performed By: #### HS TROP, CK, BNP, BMP, CBC, PT, PTT #### [place] [address] USATroponin I High Hzcstksoplz90.7 pg/mLNormal0.0-15.0The [facility] Physician GroupComment on above:Result Comment: PERFORMED BY: [place] [address] PATHOLOGIST STRIP CATCHER JOSÉ MIGUEL RON M.D.Performed By: #### HS TROP, CK, BNP, BMP, CBC, PT, PTT #### [place] [address] USATroponin I High Cxzshgnerga71.7 pg/mLNormal0.0-15.0The [facility] Physician [facility] HospitalComment on above:Result Comment: PERFORMED BY: [place] [address] PATHOLOGIST STRIP CATCHER JOSÉ MIGUEL RON M.D.Performed By: #### HS TROP, CK, BNP, BMP, CBC, PT, PTT #### [place] [address] USATroponin I.cardiac [Mass/volume] in Serum or Plasma by Detection limit <= 0.01 ng/Ordered By: Carlo Grimaldo on 31-07-1699Hrrbgxcj I.cardiac DL <= 0.01 ng/mL [Mass/Vol]14.7 pg/mL0.0-15.0[facility] County HospitalUrea nitrogen [Mass/volume] in Serum or PlasmaOrdered By: Carlo Grimaldo on 93-32-2162Ckpi nitrogen [Mass/Vol]11 mg/dLNormal7-25Henry County HospitalComment on above:Performed By: #### HS TROP, CK, BNP, BMP, CBC, PT, PTT #### [facility] [address] [place] [address] USAXR chest 2V*on 47-31-0419OA chest 2V*[facility] [address] [place] [address] [place] [address] XRay Report Signed Patient: Jonatan Olivarez MR#: [id number] : 1960 Acct:[id number] Age/Sex: 63 / F ADM Date: 01/19/24 Loc: ER Room: Type: [facility] ER Attending Dr: Copies to: Carlo Grimaldo [...] Lindsey Menchaca M.D.01/19/2024 6:26 PM Dictation Location: [place] [address] Transcribed By: [facility] 01/19/241825 Dictated By: Lindsey Menchaca MD 01/19/241822 Signed By: 01/19/241825[facility] Physician GroupCBC AND AUTO DIFFon 01-18-2024 ABSOLUTE BASOPHIL0.2 X10E9/LNormal0.0-0.2[facility] HospitalComment on above:Performed By: #### CBCA, 03910-1, CMP #### [facility] ([id number]) [address], [address] [place], [place] [address]CLUACYVW NEUTROPHIL5.2 X10E9/LNormal1.5-6.6ProMedica Choudhary HospitalComment on above:Performed By: #### PRIYANK, , CMP #### [facility] ([id number]) [address], [address] [place], [place] [address]Jbrasoauj/100 WBC (Bld)2.3 %NormalOhio State East Hospital Comment on above:Performed By: #### PRIYANK, , CMP #### [facility] ([id number]) [address], [address] [place], [place] [address]Qjtvsagpiov (Bld) [#/Vol]0.3 10*3/uLNormal0.0-0.4ProThe [facility]vue Hospital HospitalComment on above:Performed By: #### PRIYANK, , CMP #### [facility] ([id number]) [address], [address] [place], [place] [address]Wvoggdztsxg/100 WBC (Bld)3.5 %NormalOhio State East Hospital Comment on above:Performed By: #### PRIYANK, , CMP #### [facility] ([id number]) [address], [address] [place], [place] [address]Iyarswbdkxl distribution width (RBC) [Ratio]19.5 %High11.5-15.0 [facility] HospitalComment on above:Performed By: #### PRIYANK, , CMP #### [facility] ([id number]) [address], [address] [place], [place] [address]Slchnpoplb (Bld) [Volume fraction]24.1 %Jwr90-05LmeJcoswj [place] HospitalComment on above:Performed By: #### PRIYANK, , CMP #### [facility] ([id number]) [address], [address] [place], [place] [address]Aptoquenzs (Bld) [Mass/Vol]7.9 g/dLLow11.7-15.5ProMedica [facility] HospitalComment on above:Performed By: #### PRIYANK, , CMP #### [facility] ([id number]) [address], [address] [place], [place] [address]Uzhzskijpci (Bld) [#/Vol]1.6 10*3/uLNormal1.0-3.5ProMedLancaster Municipal Hospital HospitalComment on above:Performed By: #### PRIYANK, , CMP #### [facility] ([id number]) [address], [address] [place], [place] [address]Rdnaeomrtys/100 WBC (Bld)20.4 %NormalProThe Bellevue Hospital Hospital Comment on above:Performed By: #### PRIYANK, , CMP #### [facility] ([id number]) [address], [address] [place], [place] [address]JOL (RBC) [Entitic mass]30.0 xuQhjzpk61-54PhhDutuyv [place] HospitalComment on above:Performed By: #### PRIYANK, , CMP #### [facility] ([id number]) [address], [address] [place], [place] [address]PMVE (RBC) [Mass/Vol]32.9 g/dXBrinee14-18FehLyisag [place] HospitalComment on above:Performed By: #### PRIYANK, , CMP #### [facility] ([id number]) [address], [address] [place], [place] [address]CCJ (RBC) [Entitic vol]91 hARhilpq79-270EwaSvnxbw [facility]idge HospitalComment on above:Performed By: #### PRIYANK, , CMP #### [facility] ([id number]) [address], [address] [place], [place] [address]Fhmrfuabh (Bld) [#/Vol]0.7 10*3/uLNormal0-0.9ProMedica [facility]oudhary HospitalComment on above:Performed By: #### PRIYANK, , CMP #### [facility] ([id number]) [address], [address] [place], [place] [address]Cyjtyzdet/100 WBC (Bld)8.6 %NormalOhio State East Hospital Comment on above:Performed By: #### PRIYANK, , CMP #### [facility] ([id number]) [address], [address] [place], [place] [address]Sgqfxvmfqnf/100 WBC (Bld)65.2 %NormalOhio State East Hospital Comment on above:Performed By: #### PRIYANK, , CMP #### [facility] ([id number]) [address] [place], [place] [address]Thbwusbj mean volume (Bld) [Entitic vol]7.6 fLNormal7-12 [facility]hary HospitalComment on above:Performed By: #### PRIYANK, , CMP #### [facility] ([id number]) [address], [address] [place], [place] [address]Ubhzltyme (Bld) [#/Vol]275 10*3/gAPaaico919-718NjwCsdzsi [facility]hary HospitalComment on above:Performed By: #### PRIYANK, , CMP #### [facility] ([id number]) [address], [address] [place], [place] [address]WIH COUNT2.64 X10E12/LLow3.80-5.20[facility] Comment on above:Performed By: #### PRIYANK, , CMP #### [facility] ([id number]) [address], [address] [place], [place] [address]KMP (Bld) [#/Vol]7.9 10*3/uLNormal4.0-11.0Pro[facility]ary HospitalComment on above:Performed By: #### PRIYANK , CMP #### [facility] ([id number]) [address], [address] [place], [place] [address]AHEDWAPQNOLYK METABOLIC PANELon 76-58-2070Umykihq [Mass/Vol]3.1 g/dLLow3.2-5.3[facility] HospitalComment on above:Performed By: #### PRIYANK , CMP #### [facility] ([id number]) [address], [address] [place], [place] [address]USI [Catalytic activity/Vol]233 U/SUtqp04-952UnqBpzsvp [facility]ary HospitalComment on above:Performed By: #### PRIYANK , CMP #### [facility] ([id number]) [address], [address] [place], [place] [address]TDA [Catalytic activity/Vol]18 U/LNormal0-31ProMedLancaster Municipal Hospital HospitalComment on above:Performed By: #### PRIYANK , CMP #### [facility] ([id number]) [address] [place], [place] [address]Endkp gap [Moles/Vol]6 mmol/LNormal5-15ProCrossbridge Behavioral [facility] Comment on above:Performed By: #### PRIYANK , CMP #### [facility] ([id number]) [address] [place], [place] [address]EMX [Catalytic activity/Vol]30 U/LNormal0-41Pro[facility] HospitalComment on above:Performed By: #### PRIYANK , CMP #### [facility] ([id number]) [address], [address] [place], [place] [address]Soyvyjvmf [Mass/Vol]0.3 mg/dLNormal0.3-1.2[facility] HospitalComment on above:Performed By: #### PRIYANK, , CMP #### [facility] ([id number]) [address], [address] [place], [place] [address]Olvuail [Mass/Vol]8.3 mg/dLLow8.5-10.5PSelect [facility] Specialty [facility] Comment on above:Performed By: #### PRIYANK, , CMP #### [facility] ([id number]) [address], [address] [place], [place] [address]Ssmisfbx [Moles/Vol]99 mmol/GPdtgiq74-521NaqIgctlj [place] HospitalComment on above:Performed By: #### PRIYANK , CMP #### [facility] ([id number]) [address] [place], [place] [address]IO3 [Moles/Vol]34 mmol/KGwzj94-90JyeTvkhygSelect Medical Specialty Hospital - [place] Comment on above:Performed By: #### PRIYANK, , CMP #### [facility] ([id number]) [address], [address] [place], [place] [address]Vggvutsvmp [Mass/Vol]0.67 mg/dLNormal0.40-1.00[facility] HospitalComment on above:Result Comment: METHOD TRACEABLE TO IDMS STANDARD Performed By: #### PRIYANK, , CMP #### [facility] ([id number]) [address], [address] [place], [place] [address]iJXI (CKD-EPI) NON-RACE DEPENDENT>90Normal>59ProThe Bellevue HospitalComment on above:Result Comment: Reported eGFR is based on the CKD-EPI 2020 equation that does not use a race coefficient.Performed By: #### PRIYANK, , CMP #### [facility] ([id number]) [address], [address] [place], [place] [address]Ekcksaa [Mass/Vol]117 mg/nITfrg44-17AcnWzikouOhio State East Hospital Comment on above:Performed By: #### PRIYANK , CMP #### [facility] ([id number]) [address] [place], [place] [address]Zdylfjhjm [Moles/Vol]4.3 mmol/LNormal3.5-5.0ProThe [facility] HospitalComment on above:Performed By: #### PRIYANK , CMP #### [facility] ([id number]) [address], [address] [place] [address]Xalcclb [Mass/Vol]5.4 g/dLLow6.0-8.0ProThe [facility] Comment on above:Performed By: #### PRIYANK , CMP #### [facility] ([id number]) [address] [place] [address]Fvbfjf [Moles/Vol]139 mmol/IJaqash588-985MnjKxirae [place] HospitalComment on above:Performed By: #### PRIYANK , CMP #### [facility] ([id number]) [address], [address] [place], [place] [address]Ikuy nitrogen [Mass/Vol]16 mg/dLNormal5-27ProThe [facility] HospitalComment on above:Performed By: #### PRIYANK , CMP #### [facility] ([id number]) [address], [address] [place], [place] [address]KYAKARNUGpu 23-62-4741Gezrhbzac [Mass/Vol]1.8 mg/dLNormal1.8-2.6 ProMOhioHealth HospitalComment on above:Performed By: #### PRIYANK , CMP #### [facility] ([id number]) [address], [address] [place], [place] [address]BNO AND AUTO DIFFon 32-23-7845IIUSMWCI BASOPHIL0.1 X10E9/LNormal 0.0-0.2[facility] HospitalComment on above:Performed By: #### 42619-3, CBCA, CMP #### [facility] ([id number]) [address], [address] [place], [place] [address]WDDQLSSO NEUTROPHIL6.4 X10E9/LNormal1.5-6.6[facility] HospitalComment on above:Performed By: #### 96314-5, CBCA, CMP #### [facility] ([id number]) [address] [place], [place] [address]Mznrloccl/100 WBC (Bld)1.6 %NormalOhio State East Hospital Comment on above:Performed By: #### 15456-3, CBCA, CMP #### [facility] ([id number]) [address] [place], [place] [address]Ihfjvwkqwzj (Bld) [#/Vol]0.3 10*3/uLNormal0.0-0.4ProThe [facility] Hospital HospitalComment on above:Performed By: #### 19234-7, CBCA, CMP #### [facility] ([id number]) [address] [place], [place] [address]Vxkitrqdpfp/100 WBC (Bld)3.4 %NormalOhio State East Hospital Comment on above:Performed By: #### 74215-2, CBCA, CMP #### [facility] ([id number]) [address], [address] [place], [place] [address]Ikvmactpnkn distribution width (RBC) [Ratio]19.5 %High11.5-15.0 [facility] HospitalComment on above:Performed By: #### 98095-7, CBCA, CMP #### [facility] ([id number]) [address], [address] [place], [place] [address]Rbdrtosxif (Bld) [Volume fraction]24.1 %Qrk49-31OpzYtwbou [facility]hary HospitalComment on above:Performed By: #### 30928-7, CBCA, CMP #### [facility] ([id number]) [address], [address] [place], [place] [address]Pwgkfmmege (Bld) [Mass/Vol]8.0 g/dLLow11.7-15.5PBlanchard Valley Health System [facility] HospitalComment on above:Performed By: #### 55313-1, CBCA, CMP #### [facility] ([id number]) [address], [address] [place], [place] [address]Lkgvmfdzook (Bld) [#/Vol]1.7 10*3/uLNormal1.0-3.5PBlanchard Valley Health System [facility] HospitalComment on above:Performed By: #### 27180-4, CBCA, CMP #### [facility] ([id number]) [address] [place], [place] [address]Vzfpjyvjnuk/100 WBC (Bld)18.8 %NormalProThe [facility] Hospital Hospital Comment on above:Performed By: #### 92939-1, CBCA, CMP #### [facility] ([id number]) [address], [address] [place], [place] [address]MMV (RBC) [Entitic mass]30.2 toFnnvki31-09OghAzvtzs [place] HospitalComment on above:Performed By: #### 36326-4, CBCA, CMP #### [facility] ([id number]) [address], [address] [place], [place] [address]SXRG (RBC) [Mass/Vol]33.3 g/uOZlaoti10-89AqcRyentn [place] HospitalComment on above:Performed By: #### 51191-6, CBCA, CMP #### [facility] ([id number]) [address], [address] [place], [place] [address]XUU (RBC) [Entitic vol]91 zAOsvvwx11-839WgeXvcuoa [place] HospitalComment on above:Performed By: #### 25427-7, CBCA, CMP #### [facility] ([id number]) [address], [address] [place], [place] [address]Dssluwmkk (Bld) [#/Vol]0.7 10*3/uLNormal0-0.9ProOhiohealth Doctors Hospitalca Coolidge HospitalComment on above:Performed By: #### 97253-0, CBCA, CMP #### [facility] ([id number]) [address], [address] [place], [place] [address]Xjyhayuzr/100 WBC (Bld)7.2 %NormalOhio State East Hospital Comment on above:Performed By: #### 28725-7, CBCA, CMP #### [facility] ([id number]) [address], [address] [place], [place] [address]Vjexiobgifo/100 WBC (Bld)69.0 %NormalOhio State East Hospital Comment on above:Performed By: #### 89086-0, CBCA, CMP #### [facility] ([id number]) [address], [address] [place], [place] [address]Pviyyhlc mean volume (Bld) [Entitic vol]8.3 fLNormal7-12 [facility] HospitalComment on above:Performed By: #### 24450-9, CBCA, CMP #### [facility] ([id number]) [address], [address] [place], [place] [address]Ayecorpwr (Bld) [#/Vol]288 10*3/wOMqscks182-858VrgGiympp Toledo HospitalComment on above:Performed By: #### 52583-8, CBCA, CMP #### [facility] ([id number]) [address], [address] [place], [place] [address]OYG COUNT2.66 X10E12/LLow3.80-5.20[facility] Comment on above:Performed By: #### 94984-9, CBCA, CMP #### [facility] ([id number]) [address], [address] [place], [place] [address]IVJ (Bld) [#/Vol]9.3 10*3/uLNormal4.0-11.0[facility] HospitalComment on above:Performed By: #### 01527-1, CBCA, CMP #### [facility] ([id number]) [address], [address] [place], [place] [address]VFATPBFJKAOVA METABOLIC PANELon 28-49-9090Gcssqfv [Mass/Vol]3.1 g/dLLow3.2-5.3[facility]hary HospitalComment on above:Performed By: #### 62457-5, CBCA, CMP #### [facility] ([id number]) [address], [address] [place], [place] [address]TLL [Catalytic activity/Vol]86 U/REiyvfs20-926MueIdxfxl [facility] HospitalComment on above:Performed By: #### 17907-6, CBCA, CMP #### [facility] ([id number]) [address], [address] [place], [place] [address]PCD [Catalytic activity/Vol]8 U/LNormal0-31ProMedL[facility] Hospital HospitalComment on above:Performed By: #### 23754-3, CBCA, CMP #### [facility] ([id number]) [address], [address] [place], [place] [address]Gqodl gap [Moles/Vol]9 mmol/LNormal5-15[facility] Comment on above:Performed By: #### 39286-2, CBCA, CMP #### [facility] ([id number]) [address], [address] [place], [place] [address]LGS [Catalytic activity/Vol]15 U/LNormal0-41[facility] HospitalComment on above:Performed By: #### 63947-9, CBCA, CMP #### [facility] ([id number]) [address], [address] [place], [place] [address]Yfwmesoce [Mass/Vol]0.3 mg/dLNormal0.3-1.2PSelect Medical Specialty Hospital - YoungstownComment on above:Performed By: #### 04236-9, CBCA, CMP #### [facility] ([id number]) [address], [address] [place], [place] [address]Vdkqtnd [Mass/Vol]8.4 mg/dLLow8.5-10.5PSelect Medical Specialty Hospital - [place] Comment on above:Performed By: #### 17226-5, CBCA, CMP #### [facility] ([id number]) [address], [address] [place], [place] [address]Jldnyqvr [Moles/Vol]101 mmol/DNgokhf94-575FsxAmeewa Toledo HospitalComment on above:Performed By: #### 13389-2, CBCA, CMP #### [facility] ([id number]) [address], [address] [place], [place] [address]WS2 [Moles/Vol]31 mmol/MChanwe34-61LpaQlrqvjSelect Medical Specialty Hospital - [place] Comment on above:Performed By: #### 85236-5, CBCA, CMP #### [facility] ([id number]) [address], [address] [place], [place] [address]Cxldeushcq [Mass/Vol]0.75 mg/dLNormal0.40-1.00ProThe Bellevue HospitalComment on above:Result Comment: METHOD TRACEABLE TO IDMS STANDARD Performed By: #### 16374-0, CBCA, CMP #### [facility] ([id number]) [address], [address] [place], [place] [address]OWE/1.73 sq M.predicted among non-blacks MDRD (S/P/Bld) [Vol rate/Area]89 mL/min/{1.73_m2}Normal>59ProThe Bellevue HospitalComment on above: Result Comment: Reported eGFR is based on the CKD-EPI 2020 equation that does not use a race coefficient.Performed By: #### 89074-6CHANELLEA, CMP #### [facility] ([id number]) [address], [address] [place], [place] [address]Moiulfk [Mass/Vol]112 mg/qPIihe21-67GfnMaoipwThe [facility]vue Hospital Comment on above:Performed By: #### 40111-8, CBCA, CMP #### [facility] ([id number]) [address] [place], [place] [address]Wuhpbhjaq [Moles/Vol]4.2 mmol/LNormal3.5-5.0ProThe Bellevue HospitalComment on above:Performed By: #### 81666-8 CBCA, CMP #### [facility] ([id number]) [address], [address] [place], [place] [address]Pqunghz [Mass/Vol]5.4 g/dLLow6.0-8.0[facility] Comment on above:Performed By: #### 91706-2, CBCA, CMP #### [facility] ([id number]) [address], [address] [place], [place] [address]Ezxvrw [Moles/Vol]141 mmol/PMaecli434-701EqsQqprlh Toledo HospitalComment on above:Performed By: #### 16983-6, CBCA, CMP #### [facility] ([id number]) [address], [address] [place], [place] [address]Wqgf nitrogen [Mass/Vol]17 mg/dLNormal5-27ProThe Bellevue HospitalComment on above:Performed By: #### 64827-0, CBCA, CMP #### [facility] ([id number]) [address], [address] [place], [place] [address]IJJWCPPKFtt 37-93-0790Czrvsfljp [Mass/Vol]2.0 mg/dLNormal1.8-2.6 [facility] HospitalComment on above:Performed By: #### 08578-9, CBCA, CMP #### [facility] ([id number]) [address] [place] [address], [address] [place], [place] [address]Qwnlodfi Pathologyon 67-28-2969Gihdbxjz PathologyNormalProMedica Parma Community General HospitalComment on above:Result Comment: [employer], Located Within [facility] [address] [place] [address] Surgical Pathology Consultation Patient Name:JONATAN OLIVAREZ:1960 (Age: 63)Gender:FTaken:4Reported:01/22/2024hysician(s):Jazmine Barnard MD ([phone])Copy To: Rec. #:[id number]: #[id number] Final Pathologic Diagnosis 1. Gastric ulcer biopsy: Reactive gastritis/gastropathy. No dysplasia or intestinal metaplasia identified. Immunohistochemical stain for Helicobacter pylori is negative. 2. Distal esophageal biopsy: Squamous esophageal and cardiac type mucosa showing active chronic inflammation and reactive squamous changes suggestive of reflux injury. No dysplasia or goblet cell metaplasia identified. Report Electronically Signed Out ao/01/22/2024donte Bowman MD Interpretation performed at [employer], [address] [place] [address], License number: [id number]. Clinical History Upper GI bleed. 1. r/o h. pylori. 2. r/o barretts. Gross Description 1. Received in formalin labeled, SHER, gastric ulcer are 4 sanchez delicate, focally erythematous soft tissue fragments, 0.4-0.5 cm in greatest dimension. The specimens are filtered and submitted insingle cassette. (1, ns, [id number], m3) TB 2. Received in formalin labeled, SHER, esophageal distal biopsy are 5 pale- sanchez delicate soft tissue bits, 0.1-0.4 cm in greatest dimension. The specimens are filtered and submitted in single cassette. (1, ns, [id number], m3) [facility]/01/17/2024GR Specimen(s) Received 1: ulcer, gastric 2: Esophageal distal biopsy Fee Codes(s): 1; 55693 2; 45291HOCKM OCCULT BLOODon 61-89-3518Vxnesjtgpo.gastrointestinal Ql (Stl) PositiveAbnormalNEGProBaylor Scott & White Medical Center – GrapevineComment on above:Performed By: #### 2335-8 ####[facility] ([id number])[address] [place] [address]UPX AND HCTon 75-82-6439Omgoceuozu (Bld) [Volume fraction] 37.0 %Jcbpix75-62JabBldxqzBaylor Scott & White Medical Center – GrapevineComment on above:Performed By: #### HH ####[facility] ([id number])[address] [place] [address]Flrxfkfngd (Bld) [Mass/Vol]12.4 g/hMTakeld21.7-15.5 ProMedicProvidence Holy Cross Medical CenterComment on above:Performed By: #### HH ####[facility] ([id number])[address] [place] [address]Sztxcjn (P nathalie) [Moles/Vol]on 66-62-2277HWVCCSS W/REFLEX1.3 mmol/LNormal 0.4-2.0ProBaylor Scott & White Medical Center – GrapevineComment on above:Result Comment: Result did not trigger repeat Lactate,re-order if needed.Performed By: #### 09742-5 ####[facility] ([id number])[address] [place] [address]ERYYKQHUVyj 66-27-7322Dygmumoha [Mass/Vol]2.2 mg/dLNormal 1.8-2.6ProBaylor Scott & White Medical Center – GrapevineComment on above:Performed By: #### 29434-0, 2823-3 ####[facility] ([id number])[address] [place] [address]YKPZWDOOXnx 56-72-1513Eqzamimeg [Moles/Vol]4.1 mmol/L Normal3.5-5.0ProBaylor Scott & White Medical Center – GrapevineComment on above:Performed By: #### 59906-9, 2823-3 ####[facility] ([id number])[address] [place] [address] 37270ZCNUQP BLOOD GASon 30-01-9619ALZOO'S TESTNormal Pro[facility]ica [facility] Valley Medical CenterComment on above:Performed By: #### VBG ####[facility] ([id number])[address] [place] [address] 54[address]Lkrf excess Calc (Bld) [Moles/Vol]4.0 mmol/LHigh0.0-2.0ProBaylor Scott & White Medical Center – GrapevineComment on above:Performed By: #### VBG ####[facility] ([id number])[address] [place] [address]Rmln temperature 98.6 [degF]Qxxeuq13.0ProBaylor Scott & White Medical Center – GrapevineComment on above:Performed By: #### VBG ####[facility] ([id number])[address] [place] [address]ILZ5 (Bld) [Moles/Vol]30.3 mmol/LHigh20.0-24.0ProBaylor Scott & White Medical Center – GrapevineComment on above:Performed By: #### VBG ####[facility] ([id number])[address] [place] [address]GGAL. O2 CONC.28 %NormalProBaylor Scott & White Medical Center – GrapevineComment on above:Performed By: #### VBG ####[facility] ([id number])[address] [place] [address]Eefygo saturation in Blood99.0 %Normal>80.0Morrow County HospitalComment on above:Performed By: #### VBG ####[facility] ([id number])[address] [place] [address], [place] [address]NUFYCK SOURCERoomAirNoMagruder Memorial HospitalComment on above:Performed By: #### VBG ####[facility] ([id number])[address] [place] [address], [place] [address]BSS2, OGFOYZ88.0 KQSVGzmu82-30UbgEofsiyMorrow County Hospital Comment on above:Performed By: #### VBG ####[facility] ([id number])[address] [place] [address], [place] [address]YH, VENOUS7.357 Normal7.320-7.420ProBaylor Scott & White Medical Center – GrapevineComment on above:Performed By: #### VBG ####[facility] ([id number])[address] [place] [address], [place] [address]LL0, SYEIZU113 TUYMGret39-11IezBxhrceMorrow County Hospital Comment on above:Performed By: #### VBG ####[facility] ([id number])[address] [place] [address]ARIJXA SITEN/A NormalMorrow County HospitalComment on above:Performed By: #### VBG ####[facility] ([id number])[address] [place] [address], [place] [address]WSZAFK TYPEVENOUSNoMagruder Memorial HospitalComment on above:Performed By: #### VBG ####[facility] ([id number])[address] [place] [address]88[address]DQ CHEST 2 VWSon 84-16-6200YC CHEST 2 SNoMagruder Memorial HospitalCult,Urineon 77-52-9135Bnia,UrineSpecimen Description .CLEAN CATCH URINE Special Requests Site: [...] <=4 SUSCEPTIBLE Tobramycin <=1 SUSCEPTIBLE Trimethoprim/Sulfa >=320 RESISTANTResistantMTrinity Health System Twin City Medical CenterComment on above:Performed By: #### RADHA BOWMANX #### [address] [place] [address] Sdv Pilot/Navigator/Dds Operator: Stacy Mckenzie Natri. Peptideon 79-28-1231Txwiijpkzzx peptide B (Bld) [Mass/Vol]7206 pg/mLHigh0-125MerSt. Vincent's Medical CenterComment on above:Performed By: #### YULISAX, CDP #### [address] [place] [address] Sdv Pilot/Navigator/Dds Operator: ANNITA Mckenzie with Diffon 39-47-8891Pbz. Basophil0.06 k/uL Normal0.00-0.20MerOhioHealth HospitalComment on above:Performed By: #### YULISAX, CDP #### [address] [place], [facility]83 Sdv Pilot/Navigator/Dds Operator: Cruz Mckenzie.Imm.Granulocyte0.04 k/uLNormal0.00-0.30MerOhioHealth HospitalComment on above:Performed By: #### YULISAX, CDP #### [address] [place], [place] 4[address] Sdv Pilot/Navigator/Dds Operator: Cruz Mckenzie.Neutrophil (Seg)8.64 k/uLHigh1.50-8.10MerOhioHealth HospitalComment on above:Performed By: #### CMPX, CDP #### [address] [place], [place] 0[address]83 Sdv Pilot/Navigator/Dds Operator: Apolinar Lemus MDBasophils/100 WBC (Bld)1 %Normal0-2Mer[facility] Branch HospitalComment on above:Performed By: #### CMPX, CDP #### [address] [place], [facility]83 Sdv Pilot/Navigator/Dds Operator: Apolinar Lemus MDEosinophils (Bld) [#/Vol]0.03 10*3/uLNormal 0.00-0.44Mer[facility] HospitalComment on above:Performed By: #### CMPX, CDP #### [address] [place], [facility]83 Sdv Pilot/Navigator/Dds Operator: JADEN Mckenzieosinophils/100 WBC (Bld)0 %Low1-4MerOhioHealth HospitalComment on above:Performed By: #### CMPX, CDP #### [address] [place], [facility]83 Sdv Pilot/Navigator/Dds Operator: Apolinar Lemus MDErythrocyte distribution width (RBC) [Ratio]16.9 % High11.8-14.4[facility]ble HospitalComment on above:Performed By: #### CMPX, CDP #### [address] [place], [facility]83 Sdv Pilot/Navigator/Dds Operator: Apolinar Lemus MDHematocrit (Bld) [Volume fraction]41.8 %Normal 36.3-47.1[facility] HospitalComment on above:Performed By: #### CMPX, CDP #### [address] [place], [facility]83 Sdv Pilot/Navigator/Dds Operator: Apolinar Lemus MDHemoglobin (Bld) [Mass/Vol]13.7 g/dLNormal 11.9-15.1[facility] HospitalComment on above:Performed By: #### CMPX, CDP #### [address] [place], [place] 3292183 Sdv Pilot/Navigator/Dds Operator: Raine Mckenzieture granulocytes/100 WBC (Bld)0 %Bqxtil0ZmuotUniversity Hospitals Conneaut Medical CenterComment on above:Performed By: #### CMPX, CDP #### [address] [place], [place] 1881783 Sdv Pilot/Navigator/Dds Operator: Eden Mckenziemphocytes (Bld) [#/Vol]0.77 10*3/uLLow1.10-3.70 [facility] HospitalComment on above:Performed By: #### CMPX, CDP #### [address] [place], [place] 9277783 Sdv Pilot/Navigator/Dds Operator: Eden Mckenziemphocytes/100 WBC (Bld)8 %Xsf58-37Dzibc Tiffin HospitalComment on above:Performed By: #### CMPX, CDP #### [address] [place], [place] 4985883 Sdv Pilot/Navigator/Dds Operator: BUZZ MckenzieCH (RBC) [Entitic mass]30.0 ixHqheqy14.2-33.5 [facility] HospitalComment on above:Performed By: #### CMPX, CDP #### [address] [place] [address] Sdv Pilot/Navigator/Dds Operator: ELLA MckenzieC (RBC) [Mass/Vol]32.8 g/yFYkbiii73.4-34.8[facility] Conne[facility] Medical CenterComment on above:Performed By: #### CMPX, CDP #### [address] [place] [address] Sdv Pilot/Navigator/Dds Operator: BUZZ MckenzieCV (RBC) [Entitic vol]91.5 gMBbgsxc47.6-102.9 [facility] HospitalComment on above:Performed By: #### CMPX, CDP #### [address] [place] [address] Sdv Pilot/Navigator/Dds Operator: BUZZ Mckenzieonocytes (Bld) [#/Vol]0.44 10*3/uLNormal0.10-1.20 [facility] Medical CenterComment on above:Performed By: #### CMPX, CDP #### [address] [place], [place] 7076683 Sdv Pilot/Navigator/Dds Operator: BUZZ Mckenzieonocytes/100 WBC (Bld)4 %Normal3-12[facility] Medical CenterComment on above:Performed By: #### CMPX, CDP #### [address] [place] [address] Sdv Pilot/Navigator/Dds Operator: Guerda Mckenzieutrophil (Seg)87 %Bpph58-22BdzztUniversity Hospitals Conneaut Medical Center Comment on above:Performed By: #### CMPX, CDP #### [address] [place], [facility]83 Sdv Pilot/Navigator/Dds Operator: Apolinar Lemus MDNRBC Automated0.0 per 100 WBCNormal0.0[facility] Medical CenterComment on above:Performed By: #### CMPX, CDP #### [address] [place], [place] 7846283 Sdv Pilot/Navigator/Dds Operator: Rajat Mckenzietezee mean volume (Bld) [Entitic vol]9.0 fL Normal8.1-13.5[facility] Medical CenterComment on above:Performed By: #### CMPX, CDP #### [address] [place], [place] 7116283 Sdv Pilot/Navigator/Dds Operator: ROJAS Mckenzielatelets (Bld) [#/Vol]200 10*3/hIHapohq085-106 [facility] Medical CenterComment on above:Performed By: #### CMPX, CDP #### [address] [place], [place] 7183983 Sdv Pilot/Navigator/Dds Operator: GEOVANY Mckenzie ([facility]) [#/Vol]4.57 10*6/uLNormal3.95-5.11[facility] HospitalComment on above:Performed By: #### CMPX, CDP #### [address] [place], [place] 1405983 Sdv Pilot/Navigator/Dds Operator: RAZA Mckenzie ([facility]) [#/Vol]10.0 10*3/uLNormal3.5-11.3MTwin City Hospital HospitalComment on above:Performed By: #### CMPX, CDP #### [address] [place], [place] 4312383 Sdv Pilot/Navigator/Dds Operator: ANNITA Mckenzieomp Metabolic Profon 73-02-3105Clukfvk [Mass/Vol] 3.4 g/dLLow3.5-5.2MTwin City Hospital HospitalComment on above:Performed By: #### CMPX, CDP #### [address] [place] [address] Sdv Pilot/Navigator/Dds Operator: Apolinar Lemus MDAlbumin/Glob Ratio1.3Zffizh0.0-2.5[facility] Medical CenterComment on above:Performed By: #### CMPX, CDP #### [address] [place], [place] 3596383 Sdv Pilot/Navigator/Dds Operator: Germania Mckenziekaline Rfwx029 U/HPbei85-875Ezsjo Tiffin HospitalComment on above:Performed By: #### CMPX, CDP #### [facility] [address] [place] [address] Dr. [place], [place] 1159183 Sdv Pilot/Navigator/Dds Operator: Apolinar Lemus MDALT [Catalytic activity/Vol]24 U/UZhobdb06-99Zbzql [facility]iffin HospitalComment on above:Performed By: #### CMPX, CDP #### [facility] [address] [place] [address] Dr. [place], [place] 4485383 Sdv Pilot/Navigator/Dds Operator: Apolinar Sturtz, MDAnion gap [Moles/Vol]14 mmol/LNormal9-16[facility] Medical CenterComment on above:Performed By: #### CMPX, CDP #### [address] [place], [place] 4594283 Sdv Pilot/Navigator/Dds Operator: Apolinar Lemus MDAST [Catalytic activity/Vol]22 U/GQewtve03-08WrjfqUniversity Hospitals Conneaut Medical CenterComment on above:Performed By: #### CMPX, CDP #### [address] [place] [address] Sdv Pilot/Navigator/Dds Operator: Apolinar Lemus MDBilirubin [Mass/Vol]mg/dLNormal0.00-1.20[facility] Medical CenterComment on above:Performed By: #### CMPX, CDP #### [address] [place], [place] 9877583 Sdv Pilot/Navigator/Dds Operator: Apolinar Lemus MDBUN/CRE Qugvo04Syqpyv5-02Ormlu [facility] Comment on above:Performed By: #### CMPX, CDP #### [address] [place] [address] Sdv Pilot/Navigator/Dds Operator: Apolinar Lemus MDCalcium [Mass/Vol]8.6 mg/dLNormal8.6-10.4[facility] Medical CenterComment on above:Performed By: #### CMPX, CDP #### [address] [place] [address] Sdv Pilot/Navigator/Dds Operator: Apolinar Lemus, MDChloride [Moles/Vol]100 mmol/EJuyaby75-368WdadcUniversity Hospitals Conneaut Medical CenterComment on above:Performed By: #### CMPX, CDP #### [address] [place], [place] 2810883 Sdv Pilot/Navigator/Dds Operator: Apolinar Lemus MDCO2 [Moles/Vol]20 mmol/JUlnzik31-84Mkbbi Tiffin HospitalComment on above:Performed By: #### CMPX, CDP #### [address] [place] [address] Sdv Pilot/Navigator/Dds Operator: ANNITA Mckenziereatinine [Mass/Vol]1.4 mg/dLHigh0.50-0.90[facility] Medical CenterComment on above:Performed By: #### CMPX, CDP #### [address] [place] [address] Sdv Pilot/Navigator/Dds Operator: Apolinar Lemus MDGFR/1.73 sq M.predicted among non-blacks MDRD (S/P/Bld) [Vol rate/Area]44 mL/min/{1.73_m2}Low>60MerSt. Vincent's Medical CenterComment on above:Result Comment: These results [...] tubular secretion.Performed By: #### CMPX, CDP #### [address] [place] [address] Sdv Pilot/Navigator/Dds Operator: Apolinar Lemus MDGlucose [Mass/Vol]111 mg/pBPqia32-58Qrjne North Branch HospitalComment on above:Performed By: #### CMPX, CDP #### [address] [place] [address] Sdv Pilot/Navigator/Dds Operator: ROJAS Mckenzieotassium [Moles/Vol]4.2 mmol/LNormal3.7-5.3MTwin City Hospital HospitalComment on above:Performed By: #### CMPX, CDP #### [address] [place] [address] Sdv Pilot/Navigator/Dds Operator: Apolinar Lemus MDProtein [Mass/Vol]6.3 g/dLLow6.6-8.7[facility] HospitalComment on above:Performed By: #### CMPX, CDP #### [facility] [address] [place] [address] Sdv Pilot/Navigator/Dds Operator: ADÁN Mckenzieodium [Moles/Vol]134 mmol/DHoy799-617CjminUniversity Hospitals Conneaut Medical CenterComment on above:Performed By: #### CMPX, CDP #### [facility] [address] [place] [address] Sdv Pilot/Navigator/Dds Operator: Apolinar Lemus MDUrea nitrogen [Mass/Vol]17 mg/dLNormal8-23[facility] HospitalComment on above:Performed By: #### CMPX, CDP #### [address] [place] [address] Sdv Pilot/Navigator/Dds Operator: DA Mckenzie-Dimer Teston 67-61-4395C-Dimer Test3.58 ug/mL FEUHigh0.00-0.59[facility] Medical CenterComment on above:Result Comment: When combined [...] distal DVT.Performed By: #### CMPX, CDP #### [facility] [address] [place] [address] Sdv Pilot/Navigator/Dds Operator: Jaleel Mckenzie, Sepsison 25-20-2521Wcbkbk Acid, Sepsis0.9 mmol/LNormal0.5-1.9[facility] Medical CenterComment on above:Performed By: #### GLYHGB #### [facility] [address] [place], [place] 9063[address] Sdv Pilot/Navigator/Dds Operator: JULISSA Cardozo-CoV-2on 83-30-9006QIFP-CoV-2 (COVID-19) RNA JANIA+probe Ql (Unsp spec)Not detectedNormalNOTDEProMedica Flower HospitalComment on above:Result Comment: Rapid NAAT: The [...] management decisions. Fact sheet for Healthcare Providers: https://www.fda.gov/media/699554/download Fact sheet for Patients: https://www.fda.gov/media/041986/download Methodology: Isothermal Nucleic Acid AmplificationPerformed By: #### GLYHGB #### [facility] [address] [place], [place] 9770608 Sdv Pilot/Navigator/Dds Operator: Rivera Cardozooponinon 89-19-4624Lsfxelsb, High Sens35 ng/L High0-14[facility] Conne[facility] Medical CenterComascension standish hospital on above:Result Comment: High Sensitivity Troponin values cannot be compared with other Troponin methodologies.Performed By: #### DAREKO UAX #### [facility] [address] [place], [place] 5513483 Sdv Pilot/Navigator/Dds Operator: Katerina Mckenzie High Sens33 ng/LHigh0-14[facility] Medical CenterComment on above:Result Comment: High Sensitivity Troponin values cannot be compared with other Troponin methodologies.Performed By: #### GLYHGB #### [facility] [address] [place], [place] 4535[address] Sdv Pilot/Navigator/Dds Operator: LEEANN Cardozo w/Reflex Cultureon 86-99-6847Jlusjvxou, SemiQt,UrNegativeNormalNEGUniversity Hospitals Conneaut Medical CenterComment on above:Performed By: #### UMICAO, UAX #### [facility] [address] [place], [place] 3516783 Sdv Pilot/Navigator/Dds Operator: Lai Mckenzie, UrineNegativeSt. Charles Hospital Comment on above:Performed By: #### UMICAO, UAX #### [facility] [address] [place], [place] 4160383 Sdv Pilot/Navigator/Dds Operator: Lakesha Mckenzierity (U)SLIGHTLY CLOUDYAbnormalCLEARMercRockville General HospitalComment on above:Performed By: #### UMICAO, UAX #### [facility] [address] [place] [address] Dr. [place], [place] 6788383 Sdv Pilot/Navigator/Dds Operator: ANNITA Mckenzieolor (U)YellowNormalYThe University of [facility] Comment on above:Performed By: #### UMICAO, UAX #### [facility] [address] [place], [place] 0682683 Sdv Pilot/Navigator/Dds Operator: Rayne Mckenzie Ql (U)NegativeNormalNEGUniversity Hospitals Conneaut Medical CenterComment on above:Performed By: #### UMICAO, UAX #### [facility] [address] [place], [place] 9638583 Sdv Pilot/Navigator/Dds Operator: Apolinar Sturtz, MDKetones Ql (U)NegativeNormalNEGKettering Health Preble HospitalComment on above:Performed By: #### DAREKO, UAX #### [facility] [address] [place] [address] Dr. [place], [place] 7331083 Sdv Pilot/Navigator/Dds Operator: Apolinar Lemus MDLeukocyte esterase Test strip Ql (U)SMALLAbnormal NEGUniversity Hospitals Conneaut Medical CenterComment on above:Performed By: #### GRACIE, UAX #### [facility] [address] [place] [address] Dr. [place], [place] 6280583 Sdv Pilot/Navigator/Dds Operator: Stephanie Mckenzietrite,UrNegativeNormalNEGSelect Medical Specialty Hospital - [facility], Inc on above:Performed By: #### GRACIE, UAX #### [address] [place], [place] 4010683 Sdv Pilot/Navigator/Dds Operator: ROJAS Mckenzie,Ur6.6Ekfghq8.0-9.0[facility] Medical CenterComment on above:Performed By: #### GRACIE, UAX #### [address] [place], [place] 3200383 Sdv Pilot/Navigator/Dds Operator: Noelle Mckenzie Ql (U)2+ mg/dLAbnormalNEGUniversity Hospitals Conneaut Medical CenterComment on above:Performed By: #### GRACIE, UAX #### [facility] [address] [place] [address] Dr. [place], [place] 5752883 Sdv Pilot/Navigator/Dds Operator: ADÁN Mckenziepec. [place],Ur1.146Ebym3.010-1.020K[facility] Preble HospitalComment on above:Performed By: #### GRACIE, UAX #### [facility] [address] [place] [address] Dr. [place], [place] 4349883 Sdv Pilot/Navigator/Dds Operator: Tahmina Mckenziebilinogen,UrNormalNormal0.0-1.0[facility]ble HospitalComment on above:Performed By: #### DAREKO, UAX #### [facility] [address] [place], [place] [id number] Sdv Pilot/Navigator/Dds Operator: Apolinar Lemus MDUrinalysis,Microon [id number]+Abnormal NONEMercy North Branch HospitalComment on above:Performed By: #### GRACIE, UAX #### [facility] [address] [place], [place] [phone] Sdv Pilot/Navigator/Dds Operator: Apolinar Lemus MDEpithelial cells LM Ql (Urine sed)2 TO 1Vsdydq9-86 [facility] Preble HospitalComment on above:Performed By: #### GRACIE UAX #### [facility] [address] [place], [place] [id number] Sdv Pilot/Navigator/Dds Operator: Apolinar Lemus MDEpithelial, Renal0 TO 6Ecwuon1Irxui North Branch HospitalComment on above:Performed By: #### GRACIE UAX #### [facility] [address] [place], [place] [id number] Sdv Pilot/Navigator/Dds Operator: Apolinar Lemus MDUrine RBC's0 TO 4Rpfoax4-0Nsvvv [facility] Comment on above:Performed By: #### GRACIE UAX #### [facility] [address] [place], [place] [phone] Sdv Pilot/Navigator/Dds Operator: Apolinar Lemus MDUrine WBC's5 TO 07Uokheo9-6Mjbgf [facility] Comment on above:Performed By: #### GRACIE UAX #### [facility] [address] [place] [address] Sdv Pilot/Navigator/Dds Operator: BRYCE Mckenzie CHEST PORTABLEon [id number] CHEST PORTABLE EXAMINATION: ONE XRAY VIEW OF [...] Signed by: Diego Alcantara MD 01/02/24 Final resultNoCorey HospitalXR TIBIA FIBULA LEFT (2 VIEWS)on 66-05-2394DE TIBIA FIBULA LEFT (2 VIEWS)EXAMINATION: 2 XRAY [...] Signed by: Zach Jacobs MD 01/02/24 Final resultNoCorey HospitalBasic Metab w/rfx MGon 18-51-0396Tifvl gap [Moles/Vol]15 mmol/LNormal9-17Wilson HealthComment on above:Performed By: #### ELY BMPX #### [facility] [address] [place] [address] Sdv Pilot/Navigator/Dds Operator: ANNITA Cardozoalcium [Mass/Vol]9.1 mg/dLNormal8.6-10.4Wilson HealthComment on above:Performed By: #### ELY BMPX #### [facility] [address] [place] [phone] Sdv Pilot/Navigator/Dds Operator: Mark Liriano MDChloride [Moles/Vol]96 mmol/LEtd53-651LculnWilson HealthComment on above:Performed By: #### CDP, BMPX #### [facility] [address] [place] [address] Sdv Pilot/Navigator/Dds Operator: Mark Liriano MDCO2 [Moles/Vol]26 mmol/MHfpoam59-93FteneWilson HealthComment on above:Performed By: #### CDP, BMPX #### [facility] [address] [place] [address] Sdv Pilot/Navigator/Dds Operator: ANNITA Cardozoreatinine [Mass/Vol]0.8 mg/dLNormal0.5-0.9Wilson HealthComment on above:Performed By: #### ELY, BMPX #### [facility] [employer] [address] [place] [address] Sdv Pilot/Navigator/Dds Operator: Mark Liriano MDGFR/1.73 sq M.predicted among non-blacks MDRD (S/P/Bld) [Vol rate/Area]mL/min/{1.73_m2}Normal>60Wilson HealthComment on above:Result Comment: These results are not [...] By: #### ELY, BMPX #### [facility] [address] [place] [address] Sdv Pilot/Navigator/Dds Operator: Mark Liriano MDGlucose [Mass/Vol]240 mg/eGRhbn02-86LehhrKaiser Foundation HospitalComment on above:Performed By: #### CDP, BMPX #### [facility] [address] [place] [address] Sdv Pilot/Navigator/Dds Operator: ROJAS Cardozootassium [Moles/Vol]4.3 mmol/LNormal3.7-5.3 Wilson HealthComment on above:Performed By: #### CDP, BMPX #### [address] [address] Sdv Pilot/Navigator/Dds Operator: ADÁN Cardozoodium [Moles/Vol]137 mmol/YQhykbd414-146DapolWilson HealthComment on above:Performed By: #### CDP, BMPX #### [address] [address] Sdv Pilot/Navigator/Dds Operator: Mark Liriano MDUrea nitrogen [Mass/Vol]22 mg/dLNormal8-23Wilson HealthComment on above:Performed By: #### CDP, BMPX #### [address] [address] Sdv Pilot/Navigator/Dds Operator: Heath Cardozo 49-18-7143Xkajhnlftya distribution width (RBC) [Ratio]18.6 %High11.8-14.4Wilson HealthComment on above:Performed By: #### BMP, BNP, MG, CBC #### [address] [address] Sdv Pilot/Navigator/Dds Operator: BUZZ CardozoCH (RBC) [Entitic mass]28.3 svQhtqsg92.2-33.5 Wilson HealthComment on above:Performed By: #### BMP, BNP, MG, CBC #### [facility] [employer] [address] [place] [address] Sdv Pilot/Navigator/Dds Operator: BUZZ CardozoCHC (RBC) [Mass/Vol]30.3 g/jSGemqyk10.4-34.8 Wilson HealthComment on above:Performed By: #### BMP, BNP, MG, CBC #### [facility] [employer] [address] [place] [address] Sdv Pilot/Navigator/Dds Operator: BUZZ CardozoCV (RBC) [Entitic vol]93.5 gPSxlkyy45.6-102.9 Wilson HealthComment on above:Performed By: #### BMP, BNP, MG, CBC #### [facility] [employer] [address] [place] [address] Sdv Pilot/Navigator/Dds Operator: SVETLANA Cardozo Automated0.3 per 100 WBCHigh0.0Wilson HealthComment on above:Performed By: #### BMP, BNP, MG, CBC #### [facility] [employer] [address] [place] [address] Sdv Pilot/Navigator/Dds Operator: Nicanor Cardozo mean volume (Bld) [Entitic vol]10.4 fL Normal8.1-13.5Wilson HealthComment on above:Performed By: #### BMP, BNP, MG, CBC #### [address] [address] Sdv Pilot/Navigator/Dds Operator: Corey Cardozo (Bld) [#/Vol]214 10*3/lBLnaivn875-397 Wilson HealthComment on above:Performed By: #### BMP, BNP, MG, CBC #### [address] [address] Sdv Pilot/Navigator/Dds Operator: GEOVANY Cardozo (Bld) [#/Vol]4.45 10*6/uLNormal3.95-5.11 Wilson HealthComment on above:Performed By: #### BMP, BNP, MG, CBC #### [facility] [employer] [address] [place] [address] Sdv Pilot/Navigator/Dds Operator: RAZA Cardozo (Bld) [#/Vol]6.0 10*3/uLNormal3.5-11.3MKaiser Foundation HospitalComment on above:Performed By: #### BMP, BNP, MG, CBC #### [facility] [employer] [address] [place] [address] Sdv Pilot/Navigator/Dds Operator: Mark Liriano MDHematocrit (Bld) [Volume fraction]41.0 %Normal 36.3-47.1MKaiser Foundation HospitalComment on above:Performed By: #### BMP, BNP, MG, CBC #### [address] [address] Sdv Pilot/Navigator/Dds Operator: Mark Liriano MDHemoglobin (Bld) [Mass/Vol]12.6 g/dLNormal 11.9-15.1MKaiser Foundation HospitalComment on above:Performed By: #### BMP, BNP, MG, CBC #### [address] [address] Sdv Pilot/Navigator/Dds Operator: FELISHA Cardozo with Diffon 74-56-7965Hqn. Basophil<0.03 Normal0.00-0.20Wilson HealthComment on above:Performed By: #### CDP, BMPX #### [address] [address] Sdv Pilot/Navigator/Dds Operator: Cruz Cardozo. Eosinophil<0.94Jpdhgo6.00-0.44Wilson HealthComment on above:Performed By: #### CDP, BMPX #### [address] [address] Sdv Pilot/Navigator/Dds Operator: Cruz Cardozo.Imm.Granulocyte0.04 k/uLNormal0.00-0.30Wilson HealthComment on above:Performed By: #### CDP, BMPX #### [address] [address] Sdv Pilot/Navigator/Dds Operator: Cruz Cardozo.Neutrophil (Seg)5.37 k/uLNormal1.50-8.10 Wilson HealthComment on above:Performed By: #### CDP, BMPX #### [address] [phone] Sdv Pilot/Navigator/Dds Operator: Mark Liriano MDBasophils/100 WBC (Bld)0 %Normal0-2[facility] PresbyterianComment on above:Performed By: #### CDP, BMPX #### [facility] [address] [place] [address] Sdv Pilot/Navigator/Dds Operator: Mark Liriano MDEosinophils/100 WBC (Bld)0 %Low1-4MerWestside Hospital– Los AngelesComment on above:Performed By: #### CDP, BMPX #### [facility] [address] [place] [address] Sdv Pilot/Navigator/Dds Operator: Mark Liriano MDErythrocyte distribution width (RBC) [Ratio]18.5 %High11.8-14.4Wilson HealthComment on above:Performed By: #### ELY, BMPX #### [address] [address] Sdv Pilot/Navigator/Dds Operator: Mark Liriano MDHematocrit (Bld) [Volume fraction]43.8 %Normal 36.3-47.1[facility] PresbyterianComment on above:Performed By: #### ELY, BMPX #### [address] [address] Sdv Pilot/Navigator/Dds Operator: Mark Liriano MDHemoglobin (Bld) [Mass/Vol]13.5 g/dLNormal 11.9-15.1[facility] PresbyterianComment on above:Performed By: #### CDP, BMPX #### [facility] [address] [place] [address] Sdv Pilot/Navigator/Dds Operator: Mark Liriano MDImmature granulocytes/100 WBC (Bld)1 %Tiyo2KoddnWilson HealthComment on above:Performed By: #### CDP, BMPX #### [facility] [address] [place] [address] Sdv Pilot/Navigator/Dds Operator: Mark Liriano MDLymphocytes (Bld) [#/Vol]0.75 10*3/uLLow 1.10-3.70Wilson HealthComment on above:Performed By: #### CDP, BMPX #### [address] [address] Sdv Pilot/Navigator/Dds Operator: Mark Liriano MDLymphocytes/100 WBC (Bld)11 %Agy55-97TboukWilson HealthComment on above:Performed By: #### CDP, BMPX #### [address] [address] Sdv Pilot/Navigator/Dds Operator: BUZZ CardozoCH (RBC) [Entitic mass]28.1 yvWoknxq65.2-33.5 Wilson HealthComment on above:Performed By: #### ELY, BMPX #### [address] [address] Sdv Pilot/Navigator/Dds Operator: BUZZ CardozoCHC (RBC) [Mass/Vol]30.8 g/fADhwipf39.4-34.8 Wilson HealthComment on above:Performed By: #### ELY, BMPX #### [address] [address] Sdv Pilot/Navigator/Dds Operator: BUZZ CardozoCV (RBC) [Entitic vol]91.1 hQVzenlr00.6-102.9 Wilson HealthComment on above:Performed By: #### ELY, BMPX #### [address] [address] Sdv Pilot/Navigator/Dds Operator: BUZZ Cardozoonocytes (Bld) [#/Vol]0.58 10*3/uLNormal 0.10-1.20Wilson HealthComment on above:Performed By: #### ELY, BMPX #### [address] [address] Sdv Pilot/Navigator/Dds Operator: Mark Madoff, MDMonocytes/100 WBC (Bld)9 %Normal3-12Wilson HealthComment on above:Performed By: #### CDP, BMPX #### [address] [address] Sdv Pilot/Navigator/Dds Operator: Mark Liriano MDNeutrophil (Seg)79 %Gsfn96-76XatzrWilson HealthComment on above:Performed By: #### CDP, BMPX #### [address] [address] Sdv Pilot/Navigator/Dds Operator: Mark Liriano MDNRBC Automated0.0 per 100 WBCNormal0.0Wilson HealthComment on above:Performed By: #### CDP, BMPX #### [address] [address] Sdv Pilot/Navigator/Dds Operator: Rajat Cardozotezee mean volume (Bld) [Entitic vol]10.2 fL Normal8.1-13.5Wilson HealthComment on above:Performed By: #### ELY, BMPX #### [address] [address] Sdv Pilot/Navigator/Dds Operator: ROJAS Cardozolatelets (Bld) [#/Vol]175 10*3/pOLxvcoe113-056 Wilson HealthComment on above:Performed By: #### CDP, BMPX #### [address] [address] Sdv Pilot/Navigator/Dds Operator: Mark Liriano MDRBC (Bld) [#/Vol]4.81 10*6/uLNormal3.95-5.11 Wilson HealthComment on above:Performed By: #### CDP, BMPX #### [address] [address] Sdv Pilot/Navigator/Dds Operator: GEOVANY Cardozo morphology finding Nom (Bld)ANISOCYTOSIS PRESENTNormalMerWestside Hospital– Los AngelesComment on above:Performed By: #### CDP, BMPX #### [address] [address] Sdv Pilot/Navigator/Dds Operator: RAZA Cardozo ([facility]) [#/Vol]6.7 10*3/uLNormal3.5-11.3MKaiser Foundation HospitalComment on above:Performed By: #### CDP, BMPX #### [address] [address] Sdv Pilot/Navigator/Dds Operator: Mark Liriano MDHgb/Hcton 62-28-1986QmqothbsjmWTXRRWMAO RESULTS. CLERICAL ERROR.Wvlwkb99.3-47.1MKaiser Foundation HospitalComment on above: Result Comment: CORRECTED ON 12/14 AT 0522: PREVIOUSLY REPORTED 41.0Performed By: #### HH #### [address] [address] Sdv Pilot/Navigator/Dds Operator: Mark Liriano MDHemoglobinDISREGARD RESULTS. CLERICAL ERROR. Rnuxnc12.9-15.1MKaiser Foundation HospitalComment on above:Result Comment: CORRECTED ON 12/14 AT 0522: PREVIOUSLY REPORTED 12.6Performed By: #### HH #### [address] [address] Sdv Pilot/Navigator/Dds Operator: Mihaela Cardozo Metabolic Profon 44-03-6658Hqdov gap [Moles/Vol]14 mmol/LNormal9-17Wilson HealthComment on above: Performed By: #### BMP, BNP, MG, CBC #### [facility] [employer] [address] [place] [address] Sdv Pilot/Navigator/Dds Operator: ANNITA Cardozoalcium [Mass/Vol]8.7 mg/dLNormal8.6-10.4Wilson HealthComment on above:Performed By: #### BMP, BNP, MG, CBC #### [facility] [employer] [address] [place] [address] Sdv Pilot/Navigator/Dds Operator: ANNITA Cardozohloride [Moles/Vol]95 mmol/BEmn27-228EomwrWilson HealthComment on above:Performed By: #### BMP, BNP, MG, CBC #### [facility] [address] [place] [address] Sdv Pilot/Navigator/Dds Operator: Mark Liriano MDCO2 [Moles/Vol]24 mmol/CYtiobr04-85JxfxaWilson HealthComment on above:Performed By: #### BMP, BNP, MG, CBC #### [facility] [address] [place] [address] Sdv Pilot/Navigator/Dds Operator: ANNITA Cardozoreatinine [Mass/Vol]0.7 mg/dLNormal0.5-0.9Wilson HealthComment on above:Performed By: #### BMP, BNP, MG, CBC #### [facility] [address] [place] [address] Sdv Pilot/Navigator/Dds Operator: Mark Liriano MDGFR/1.73 sq M.predicted among non-blacks MDRD (S/P/Bld) [Vol rate/Area]mL/min/{1.73_m2}Normal>60Wilson HealthComment on above:Result Comment: These results are not [...] BMP, BNP, MG, CBC #### [facility] [address] [place] [address] Sdv Pilot/Navigator/Dds Operator: Mark Liriano MDGlucose [Mass/Vol]273 mg/mURmqt05-69EdanxHollywood Presbyterian Medical CenterComment on above:Performed By: #### BMP, BNP, MG, CBC #### [facility] [place] [address] Sdv Pilot/Navigator/Dds Operator: ROJAS Cardozootassium [Moles/Vol]4.1 mmol/LNormal3.7-5.3 Wilson HealthComment on above:Performed By: #### BMP, BNP, MG, CBC #### [facility] [address] [place] [address] Sdv Pilot/Navigator/Dds Operator: Mark Liriano MDSodium [Moles/Vol]133 mmol/NQvb301-392UpottWilson HealthComment on above:Performed By: #### BMP, BNP, MG, CBC #### [facility] [address] [place] [address] Sdv Pilot/Navigator/Dds Operator: Mark Liriano MDUrea nitrogen [Mass/Vol]20 mg/dLNormal8-23Wilson HealthComment on above:Performed By: #### BMP, BNP, MG, CBC #### [facility] [address] [place] [address] Sdv Pilot/Navigator/Dds Operator: Mark Liriano MDBrain Natri. Peptideon 76-81-4902Knvkjnalupy peptide B (Bld) [Mass/Vol]4124 pg/mLHigh<300Wilson [facility] Comment on above:Result Comment: An age-independent cutoff point of 300 pg/ml has a 98% negative predictive value excluding acute heart failure.Performed By: #### BMP, BNP, MG, CBC #### [facility] [address] [place] [address] Sdv Pilot/Navigator/Dds Operator: Mark Liriano MDHgb/Hcton 70-90-6299Apnmtvuhjv (Bld) [Volume fraction]43.8 %Jpwdgu96.3-47.1MKaiser Foundation HospitalComment on above: Performed By: #### HH #### [facility] [address] [place] [address] Sdv Pilot/Navigator/Dds Operator: Mark Liriano MDHemoglobin (Bld) [Mass/Vol]13.4 g/dLNormal 11.9-15.1[facility] PresbyterianComment on above:Performed By: #### HH #### [employer] [address] [place], [place] [phone] Sdv Pilot/Navigator/Dds Operator: Mark Liriano MDMagnesiumon 04-80-3793Dowjtfzfg [Mass/Vol]2.2 mg/dLNormal1.6-2.6[facility] PresbyterianComment on above:Performed By: #### BMP, BNP, MG, CBC #### [employer] [address] [place], [place] [phone] Sdv Pilot/Navigator/Dds Operator: Mark Liriano [facility] – OKLAHOMA CITYBC with Auto Differentialon 41-10-8374Gavqusuzl (Bld) [#/Vol][facility]OSPITALBasophils/100 WBC (Bld)0 %0 - 2 %[facility] HOSPITALEosinophils (Bld) [#/Vol][facility] Eosinophils/100 WBC (Bld)0 %Low1 - 4 %[facility] HOSPITALErythrocyte distribution width (RBC) [Ratio]18.6 %High11.8 - 14.4 %[facility] Hematocrit (Bld) [Volume fraction]36.2 %Low36.3 - 47.1 %[facility] Hemoglobin (Bld) [Mass/Vol]11.6 g/dLLow11.9 - 15.1 g/dLBON [facility] Immature granulocytes (Bld) [#/Vol]0.06 10*3/uLBON SECST. [facility] CAMPUSImmature granulocytes/100 WBC (Bld)1 %Uajg9WOO [facility] MEDICAL CENTERInterpretation and review of laboratory resultsAbnormalBON SECST. M[facility]ONTON CAMPUSLymphocytes/100 WBC (Bld)9 %Low24 - 43 %BON [facility]ST[facility] CAMPUSLymphocytes/100 WBC (Bld)0.75 %Low BON [facility] MEDICAL CENTERH (RBC) [Entitic mass]28.2 pg25.2 - 33.5 pgBON SECOURS MERCY HEALTHMCHC (RBC) [Mass/Vol]32.0 g/dL28.4 - 34.8 g/dLBON [facility] HE[facility] MEDICAL CENTERMCV (RBC) [Entitic vol]88.1 fL82.6 - 102.9 fLCENTRA BEDFORD MEMORIAL HOSPITAL Monocytes/100 WBC (Bld)3 %3 - 12 %BON [facility] MEDICAL CENTERMonocytes/100 WBC (Bld)0.23 %[facility] HOSPITALNeutrophils/100 WBC (Bld)87 %High36 - 65 %BON [facility] HEIGHT[facility] MEDICAL CENTERNRBC Automated0.00.0 per 100 WBCCENTRA BEDFORD MEMORIAL [facility]OSPITAL Platelet mean volume (Bld) [Entitic vol]9.4 fL8.1 - 13.5 fLCENTRA BEDFORD MEMORIAL HOSPITALPlatelets (Bld) [#/Vol]216 10*3/uLBON [facility]LEVELAND HEIGHTS MEDICAL CENTERRBC (Bld) [#/Vol]4.11 10*6/uL3.95 - 5.11 m/uLCENTRA BEDFORD MEMORIAL HOSPITALSegmented neutrophils/100 WBC (Bld)7.04 %BON [facility] HEIGHT[facility] MEDICAL CENTERWBC other (Bld) [#/Vol] 8.1BON [facility] CENTERComprehensive Metabolic Panel on 52-70-6557Jnvxont [Mass/Vol]4.1 g/dL3.5 - 5.2 g/dLBON [facility] Albumin/Globulin [Mass ratio]1.3 {ratio}1.0 - 2.5BON [facility] HEALTHALP [Catalytic activity/Vol]121 U/LHigh35 - 104 U/LBON [facility] HEALTHALT [Catalytic activity/Vol]29 U/L5 - 33 U/LBON [facility] MEDICAL CENTERAnion gap [Moles/Vol]8 mmol/LLow9 - 17 mmol/LBON [facility] HEALTHAST [Catalytic activity/Vol]16 U/LNINF - 32 U/LBON [facility] HEALTHBilirubin [Mass/Vol]0.3 mg/dL0.3 - 1.2 mg/dLBON [facility] HEALTHCalcium [Mass/Vol]9.1 mg/dL8.6 - 10.4 mg/dLBON [facility] HEALTHChloride [Moles/Vol]103 mmol/L98 - 107 mmol/L [facility] HEALTHCO2 [Moles/Vol]27 mmol/L20 - 31 mmol/LBON [facility]ENTERY [facility] HOSPITALCreatinine [Mass/Vol]0.73 mg/dL0.50 - 0.90 mg/dLBON SECCONFLUENCE HEALTHhappn [facility] GFR/1.73 sq M.predicted MDRD (S/P/Bld) [Vol rate/Area]- PINFBON [facility]RO[facility] CLEVELAND HEIGHTS MEDICAL CENTERComment on above: These results are [...] that affects renal tubular secretion. Glucose [Mass/Vol]171 mg/kWRfeu55 - 99 mg/dLBON MART[facility] MEDICAL CENTERMardil Medical Interpretation and review of laboratory resultsAbnormalBON [facility] HEALTH Potassium [Moles/Vol]4.9 mmol/L3.7 - 5.3 mmol/LBON [facility]ENTERY HEALTHProtein [Mass/Vol]7.2 g/dL6.4 - 8.3 g/dLBON SEC[facility] CENTERSodium [Moles/Vol]138 mmol/L135 - 144 mmol/LBON [facility]PO[facility] KidaroUrea nitrogen [Mass/Vol]33 mg/dL High8 - 23 mg/dLBON [facility] KidaroUrea nitrogen/Creatinine (Bld) [Mass ratio]65Pavm6 - 20BON [facility] HEALTHBON [facility]ENTERY [facility] MONTPELIER HOSPITALCBC with Auto Differentialon [id number] Eos #0.18B[facility]CY HEALTHAbsolute Immature GranulocyteBON SEC[facility] MERCY HEALTHAbsolute Lymph #1.21B[facility] HEALTHAbsolute Denali #0.40[facility] HEALTHBasophils (Bld) [#/Vol] 0.09 10*3/uLBON [facility] MERCY HEALTHBasophils/100 WBC (Bld)1 %0 - 2 %BON SECOURS RestletY [facility] MONTPELIER HOSPITALEosinophils/100 WBC (Bld)2 %1 - 4 %[facility] Hematocrit (Bld) [Volume fraction]44.5 %36.3 - 47.1 %[facility] Hemoglobin (Bld) [Mass/Vol]14.5 g/dL11.9 - 15.1 g/dLBON [facility] Immature granulocytes/100 WBC (Bld)0 %0C[facility] HOSPITALInterpretation and review of laboratory resultsAbnormalBON [facility] MEDICAL CENTERLymphocytes/100 WBC (Bld)15 %Low24 - 43 %[facility] HOSPITALH (RBC) [Entitic mass]28.3 pg 25.2 - 33.[address] [facility]ITA'[facility] MEDICAL CENTERHC (RBC) [Mass/Vol]32.6 g/dL28.4 - 34.8 g/dLBON MERCY HE[facility] ST. RITA'S MEDICAL CENTERV (RBC) [Entitic vol]86.9 fL82.6 - 102.9 fLCENTRA BEDFORD MEMORIAL HOSPITALMonocytes/100 WBC (Bld)5 %3 - 12 %[facility] NRBC Automated0.00.0 per 100 WBCBON [facility] MEDICAL CENTERPlatelet distribution width (Bld) [Ratio]17.2 %High11.8 - 14.4 %[facility] HOSPITALPlatelet mean volume (Bld) [Entitic vol]9.1 fL8.1 - 13.5 fLCENTRA BEDFORD MEMORIAL HOSPITALPlatelets (Bld) [#/Vol]241 10*3/uLBON [facility] HEIGHTS MEDICAL CENTERRBC (Bld) [#/Vol]5.12 10*6/uL High3.95 - 5.11 m/uLCENTRA BEDFORD MEMORIAL HOSPITALSegmented neutrophils/100 WBC (Bld) 77 %High36 - 65 %[facility] MEM[facility] HOSPITALSegs Absolute6.18BON [facility] HEIGHTS MEDICAL CENTERWBC (Bld) [#/Vol]8.1 10*3/uLBON [facility] MEDICAL CENTERComprehensive Metabolic Panelon [id number] [Mass/Vol]4.5 g/dL3.5 - 5.2 g/dLBON [facility] MEDICAL CENTERAlbumin/Globulin [Mass ratio]1.5 {ratio}1.0 - 2.5BON [facility] [employer] P[facility] MONTPELIER HOSPITALALP [Catalytic activity/Vol]95 U/L35 - 104 U/LBON SECCONFLUENCE HEALTHhappn [facility] MONTPELIER HOSPITALALT [Catalytic activity/Vol]10 U/L5 - 33 U/LBON [facility] MEDICAL CENTERMardil MedicalAnion gap [Moles/Vol]12 mmol/L9 - 17 mmol/LBON [facility] [place] Kidaro AST [Catalytic activity/Vol]13 U/LNINF - 32 U/LBON [facility] [place] KidaroBilirubin [Mass/Vol]0.2 mg/dLLow0.3 - 1.2 mg/dLBON [facility] MEDICAL CENTERCalcium [Mass/Vol] 10.1 mg/dL8.6 - 10.4 mg/dLBON [facility]ART[facility] MEDICAL CENTERMardil MedicalChloride [Moles/Vol]101 mmol/L 98 - 107 mmol/LBON [facility] [place] KidaroCO2 [Moles/Vol]27 mmol/L20 - 31 mmol/LBON [facility] [place] KidaroCreatinine [Mass/Vol]0.96 mg/dLHigh0.50 - 0.90 mg/dLBON MART[facility] MEDICAL CENTERMardil MedicalGFR/1.73 sq M.predicted MDRD (S/P/Bld) [Vol rate/Area]- AMANDA GOLDEN [facility] [place] KidaroComment on above: These results are not intended [...] that affects renal tubular secretion. Glucose [Mass/Vol]137 mg/iFLdsd46 - 99 mg/dLBON MART[facility] MEDICAL CENTERMardil Medical Interpretation and review of laboratory resultsAbnormalBON [facility] [place] Potassium [Moles/Vol]4.3 mmol/L3.7 - 5.3 mmol/LBON MARTIN LUTHER HOSPITAL MEDICAL CENTERMardil MedicalProtein [Mass/Vol]7.6 g/dL6.4 - 8.3 g/dLBON MART[facility] MEDICAL CENTERhappn [facility]OSPITALSodium [Moles/Vol]140 mmol/L135 - 144 mmol/LBON MARTIN LUTHER HOSPITAL MEDICAL CENTERMardil MedicalUrea nitrogen [Mass/Vol]22 mg/dL8 - 23 mg/dLBON [facility] MEDICAL CENTERUrea nitrogen/Creatinine (Bld) [Mass ratio]23 High9 - 20BON [facility] MEDICAL CENTERLipid Panelon [id number] [Mass/Vol]231 mg/dLHighNINF - 200 mg/dLBON [facility] MEDICAL CENTERComment on above: Cholesterol Guidelines: <200 Desirable 200-240 Borderline >240 Undesirable Cholesterol in HDL [Mass/Vol]46 mg/dL40 - PINF mg/dLBON [facility] Comment on above: HDL Guidelines: <40 Undesirable 40-59 Borderline >59 Desirable Cholesterol in LDL [Mass/Vol]139 mg/dLHigh0 - 130 mg/dLBON [facility] [place] Comment on above: LDL Guidelines: <100 Desirable 100-129 Near to/above Desirable 130-159 Borderline >159 Undesirable Direct (measured) LDL and calculated LDL are not interchangeable tests. Cholesterol.total/Cholesterol in HDL [Mass ratio]5 {ratio}HighNINF - 5BON [facility] CENTERInterpretation and review of laboratory resultsAbnormHealthSouth Medical CenterTriglyceride [Mass/Vol]232 mg/dLHighNINF - 150 mg/dLBON [facility] MEDICAL CENTERComment on above: Triglyceride Guidelines: <150 Desirable 150-199 Borderline 200-499 High >499 Very high Based on AHA Guidelines for fasting triglyceride, December 2011. [facility]ITALMicroalbumin, Uron 92-64-2265Ymcwmtx/Creatinine DL <= 20 mg/L (24H U) [Mass ratio]749 mg/LHighNINF - 21 mg/LBON [facility] Albumin/Creatinine DL <= 20 mg/L (U) [Ratio]775HighNINFCENTRA BEDFORD MEMORIAL [facility]OSPITAL Creatinine [Mass/Vol]96.7 mg/dL28.0 - 217.0 mg/dLBON [facility] Interpretation and review of laboratory resultsAbnormSentara Princess Anne HospitalTSH With Reflex Ft4on 81-62-1452UFZ Qn2.20 m[IU]/LBON [facility] CENTERUrine Drug Screenon 07-26-2022 Amphetamine Screen, UrPositiveAbnormalNEGATIVEBON [...] 5 ng/ml) Interpretation and review of laboratory resultsAbnormalCENTRA [facility] Methadone Screen, UrineNegativeNEGATIVEBON SECCONFLUENCE HEALTHY HEALTHComment on above: (Positive cutoff 300 ng/mL) Opiates, UrineNegativeNEGATIVEBON [facility] HEALTHComment on above: (Positive cutoff 300 ng/mL) Oxycodone Screen, UrPositiveAbnormalNEGATIVEBON [facility]ENTERY HEALTHComment on above: (Positive cutoff 100 ng/mL) Phencyclidine, UrineNegativeNEGATIVEBON SECCONFLUENCE HEALTHY HEALTHComment on above: (Positive cutoff 25 ng/mL) Test InformationAssay provides medical screening only. The absence of expected drug(s) and/or metabolite(s) may indicate diluted or adulterated urine, limitations of testing or timing of collection.[facility] on above:Testing for legal purposes should be confirmed by another method. To request confirmation of test result, please call the lab within 7 days of sample submission. [facility] HOSPITALVitamin D 25 Hydroxyon 375694-cksyilyiazmblk D3 [Mass/Vol]14.9 ng/mLLow29.9 - PINF ng/mLBon Secours Maryview Medical Center on above: Reference Range: Vitamin D status Range Deficiency <20 ng/mL Mild Deficiency 20-30 ng/mL Sufficiency 30-100 ng/mL Toxicity >100 ng/mL Interpretation and review of laboratory resultsAbnormalVIRGINIA HOSPITAL CENTERNo Panel Informationon . No acute osseous abnormality identified in the lumbar spine or sacrum. 2. Advanced arthropathy in the lumbar spine and right hip, as described. [facility] CONSOLIDATEDEXAMINATION: 3 XRAY VIEWS [...] the groin bilaterally. Moderate rectal stool burden. [facility] Diego Islas MD - [...] lumbar spine and right hip, as described. [employer] Phone: No Panel InformationOrdered By: Diego Alcantara on [id number] [place] Phone: xr LUMBAR SPINE (2-3 VIEWS)on [id number] Study observation (narrative)[employer] Phone: xr SACRUM COCCYX (MIN 2 VIEWS)on 77-03-0750Qjrxkmnkk Study observation (narrative)[employer] Phone: ct ABDOMEN PELVIS W IV CONTRAST [...] excluded. Clinical correlation is recommended. 4. Hepatomegaly. [employer] Phone: cT ABDOMEN PELVIS W IV CONTRAST Additional Contrast? OralOrdered By: Diomedes Corona on [id number] [place] Phone: ct ABDOMEN PELVIS W IV CONTRAST Additional Contrast? Oralon 99-02-5005Wdaziyiqp Study observation (narrative)[employer] Phone: creatinineon 35-00-5783Wznpblesnw [Mass/Vol]0.84 mg/dL 0.5 - 0.9 mg/dLBON SportingoGFR/1.73 sq M.predicted MDRD (S/P/Bld) [Vol rate/Area]- PINFBON SportingoComment on above: Effective Jan 01, 2022 These [...] following therapy that affects renal tubular secretion. NeocutisI HIP RIGHT WO CONTRASTon . Moderate to severe right hip osteoarthrosis. Moderate right hip joint effusion. Severe right hip chondromalacia. 2. Mild left hip osteoarthrosis. 3. Tearing of the right acetabular labrum. 4. No signal changes to suggest femoral head AVN. 5. Moderate distention of urinary bladder. 6. Bowel loop containing ventral hernia. [facility] CONSOLIDATEDEXAMINATION: MRI OF THE [...] 4.6 cm on image 8, series 1. [facility] Orlando Brumfield MD - [...] bladder. 6. Bowel loop containing ventral hernia. [facility] [place] Phone: radiology Study observation (narrative)[facility] [place] Phone: MRI HIP RIGHT WO CONTRASTOrdered By: Orlando Callejas on [id number] [place] Phone: XR Spine Lumbosacral 2 or 3 Viewson 05-05-2648IT Spine Lumbosacral 2 or 3 ViewsFINDINGS: Mid [...] signed by Dwight Goel on 10/06/2021 1313NormalNorthern Tennessee Medical SpecialistAMYLASEon 05-09-1994Aadokyr [Catalytic activity/Vol]510 U/LCritically dghg58-128Kxx [facility] MemorialComment on above:Performed By: #### LIPAriana SUSIE ####[facility] [address] [address]Dr. Praveen Medrano W MANUAL DIFFon 13-40-6983NMLDCPYS LYMPH #NormalThe [facility] MemorialComment on above:Performed By: #### ABIGAIL #### [facility] [address] [place] [address] Dr. Praveen BloomICAL LYMPH %NormalThe [facility] MemorialComment on above: Performed By: #### ABIGAIL #### [facility] [address] [place] [address] Dr. Praveen Gu #0.3 103/ulNormal0.0-0.3The [facility] MemorialComment on above:Performed By: #### ABIGAIL #### [facility] [address] [place] [address] Dr. Praveen Gu %2 %Normal0-5The [facility] MemorialComment on above:Performed By: #### ABIGAIL #### [facility] [address] [place] [address] Dr. Praveen Linares #0.00 103/ulNormal0.00-0.10The [facility] MemorialComment on above:Performed By: #### ABIGAIL #### [facility] [address] [place] [address] Dr. Praveen Linares %0.0 %Critically low0.2-2.0The [facility] MemorialComment on above:Performed By: #### ABIGAIL #### [facility] [address] [place] [address] Dr. Parveen Perry #NormalThe [facility] on above:Performed By: #### CBCSHELBY #### [facility] [address] [place] [address] Dr. Praveen ColladoBLAST %NormalThe [facility] on above:Performed By: #### CBCSHELBY #### [facility] [address] [place] [address] Dr. Praveen ColladoCORRECTED WBCNormal4.0-11.0The [facility] on above: Performed By: #### CBCSHELBY #### [facility] [address] [place] [address] Dr. Praveen Madsen #0.28 103/ulNormal0.00-0.70The [facility] on above:Performed By: #### ABIGAIL #### [facility] [address] [place] [address] Dr. Praveen Madsen%2.0 %Normal0.9-7.0The [facility] on above: Performed By: #### ABIGAIL #### [facility] [address] [place] [address] Dr. Praveen ColladoHCT46.9 %Reespl27.0-48.0The [facility] on above: Performed By: #### ABIGAIL #### [facility] [address] [place] [address] Dr. Praveen ColladoHGB15.2 g/mrNrjrlm32.0-16.0The [facility] on above: Performed By: #### CBCSHELBY #### [facility] [address] [place] [address] Dr. Praveen Pedraza #2.90 103/ulNormal1.20-3.80The [facility] on above:Performed By: #### CBCSHELBY #### [facility] [address] [place] [address] Dr. Praveen Pedraza%21.0 %Ardjej90.5-60.0The [facility] on above:Performed By: #### CBCSHELBY #### [facility] [address] [place] [address] Dr. Praveen TangH29.0 gtPabtch01.7-34.0The [facility] MemorialComment on above: Performed By: #### ABIGAIL #### [facility] [address] [place] [address] Dr. Praveen TangHC32.4 g/pcGznrpm69.9-35.2The Bloomington HospitalComment on above:Performed By: #### ABIGAIL #### [facility] [address] [place] [address] Dr. Praveen TangV89.5 qJJbbspn84.0-99.0The [facility] MemorialComment on above: Performed By: #### ABIAGIL #### [facility] [address] [place] [address] Dr. Praveen BahenaOCYTE #NormalThe [facility] HospitalComment on above: Performed By: #### ABIGAIL #### [facility] [address] [place] [address] Dr. Praveen BahenaOCYTE %NormalThe [facility] MemorialComment on above: Performed By: #### ABIGAIL #### [facility] [address] [place] [address] Dr. Praveen Singleton#0.69 103/ulNormal0.30-0.80The [facility] MemorialComment on above:Performed By: #### ABIGAIL #### [facility] [address] [place] [address] Dr. Praveen Singleton%5.0 %Normal1.7-12.0The [facility] MemorialComment on above: Performed By: #### ABIGAIL #### [facility] [address] [place] [address] Dr. Praveen MelchorV9.9 fLNormal9.5-13.5The [facility] MemorialComment on above: Performed By: #### ABIGAIL #### [facility] [address] [place] [address] Dr. Praveen SerranoOCYTE #NormalThe [facility] HospitalComment on above:Performed By: #### ABIGAIL #### [facility] [address] [place] [address] Dr. Praveen HernandezELOCYTE %NormalThe [facility] MemorialComment on above:Performed By: #### ABIGAIL #### [facility] [address] [place] [address] Dr. Praveen SloanBCNormalThe [facility] MemorialComment on above:Performed By: #### ABIGAIL #### [facility] [address] [place] [address] Dr. Praveen BenitesT251 103/yyZjmemk276-531Lyg [facility] MemorialComment on above: Performed By: #### ABIGAIL #### [facility] [address] [place] [address] Dr. Praveen ColladoRBC5.24 106/ulNormal4.20-5.40The [facility] MemorialComment on above:Performed By: #### ABIGAIL #### [facility] [address] [place] [address] Dr. Praveen VargasW15.1 %Critically high11.0-15.0The [facility] MemorialComment on above:Performed By: #### ABIGAIL #### [facility] [address] [place] [address] Dr. Praveen Maharaj #9.66 103/ulCritically high1.40-6.50The [facility] Comment on above:Performed By: #### ABIGAIL #### [facility] [address] [place] [address] Dr. Praveen Maharaj %70.0 %Hwnmxo46.0-75.0The [facility] MemorialComment on above: Performed By: #### ABIGAIL #### [facility] [address] [place] [address] Dr. Praveen StylesBC13.8 103/ulCritically high4.0-11.0The [facility] MemorialComment on above:Performed By: #### ABIGAIL #### [facility] [address] [place] [address] Dr. Praveen ColladoCT ABD/PELVIS WO CONon 65-59-7917IX ABD/PELVIS WO CONEXAM: CT ABD/PELVIS WO CON [...] Electronically authenticated by: TAWANNA VICENTE Date: 2021-08-25 05:11[facility] WO CONon [id number] [facility] CONEXAMINATION: [facility] WO CON HISTORY: DISORIENTATION, UNSPECIFIED COMPARISON: None. [...] Electronically authenticated by: Elizabeth FAJARDO Date: 2021-08-25 04:07[facility] WO CONon 69-46-6666VP [facility] WO CON Begin Addendum #1 Important [...] the report after I reach the clinician.NormalThe [facility] CT STROKE HEAD WOon 31-11-5651YB STROKE HEAD WOINDICATION: 60 years old; Female. [...] Electronically authenticated by: NIA GALLEGOS Date: 2021-08-25 02:12NoHolzer HospitalCovid-19 PCR (CVDTBH)on 87-69-1087RLAU-CoV-2 (COVID-19) RNA JANIA+probe Ql (Unsp spec)Not detectedNormalNOT DETECTEDThe [facility] Comment on above:Result Comment: When diagnostic testing [...] for this test is supported by the [place] of Health and Human Service's declaration that [...] longer be used).Performed By: #### CVDTBH #### [facility] [address] [place], [place] [address] Dr. Praveen Patel 26-11-0508Abnqbu [Catalytic activity/Vol]7064.0 U/L Critically high73.0-393.0The [facility] MemorialComment on above:Performed By: #### SUSIE GOEL ####[facility] [address] [place], [place] [address]MwDr. Praveen ColladoPROF 14(COMP METB)on 98-45-7754Uhysqor [Mass/Vol]3.6 g/dLNormal3.4-5.0The [facility] MemorialComment on above:Performed By: #### CMP #### [facility] [address] [address] [address] Praveen ColladoAlbumin/Globulin [Mass ratio]1.1 {ratio}NormalThe [facility] MemorialComment on above:Performed By: #### CMP #### [facility] [address] [address] [address] Praveen WelchP [Catalytic activity/Vol]102 U/BAdnaqg45-217Thl [facility] MemorialComment on above:Performed By: #### CMP #### [facility] [address] [place] [address] Dr. Praveen WelchT [Catalytic activity/Vol]13 U/LCritically yrw61-14Euf [facility] MemorialComment on above:Performed By: #### CMP #### [facility] [address] [place] [address] Dr. Praveen Dumonton gap [Moles/Vol]18.9 mmol/LNormalThe [facility] Comment on above:Performed By: #### CMP #### [facility] [address] [place] [address] Dr. Praveen ColladoAST [Catalytic activity/Vol]16 U/KMydlwu95-55Yvr [facility] MemorialComment on above:Performed By: #### CMP #### [facility] [address] [place] [address] Dr. Praveen ColladoBilirubin [Mass/Vol]1.2 mg/dLCritically high0.2-1.0The [facility] MemorialComment on above:Performed By: #### CMP #### [facility] [address] [place] [address] Dr. Praveen ColladoCalcium [Mass/Vol]9.0 mg/dLNormal8.5-10.1The [facility] Comment on above:Performed By: #### CMP #### [facility] [address] [place] [address] Dr. Praveen ColladoChloride [Moles/Vol]98 mmol/KZojrkn68-004Gul [facility] Comment on above:Performed By: #### CMP #### [facility] [address] [place] [address] Dr. Praveen ColladoCO2 [Moles/Vol]22.6 mmol/INbnfig76.0-32.0The [facility] Comment on above:Performed By: #### CMP #### [facility] [address] [address] [address] Praveen ColladoCreatinine [Mass/Vol]1.18 mg/dLCritically high0.55-1.02The [facility] MemorialComment on above:Performed By: #### CMP #### [facility] [address] [address] [address] Praveen WestGFR-AF OLMZNZVY67 mL/min/1.59b7Kfdkqkrjvt low>=60The [facility] MemorialComment on above:Performed By: #### CMP #### [facility] [address] [place] [address] Dr. Praveen WestGFR-NON AF KQBWYOTN26 mL/min/1.69n9Yidkyyufmj low>=60The [facility] MemorialComment on above:Performed By: #### CMP #### [facility] [address] [address] [address] Praveen ColladoGlobulin (S) [Mass/Vol]3.3 g/dLNormalThe [facility] MemorialComment on above:Performed By: #### CMP #### [facility] [address] [place] [address] Dr. Praveen ColladoGlucose [Mass/Vol]98 mg/pQCjairo86-729Uuq [facility] Comment on above:Performed By: #### CMP #### [facility] [address] [address] [address] Praveen ColladoPotassium [Moles/Vol]2.5 mmol/LCritically low3.5-5.1The [facility] MemorialComment on above:Performed By: #### CMP #### [facility] [address] [address] [address] Praveen ColladoProtein [Mass/Vol]6.9 g/dLNormal6.4-8.2The [facility] Comment on above:Performed By: #### CMP #### [facility] [address] [address] [address] Praveen Maganaum [Moles/Vol]136 mmol/IPmvxxs572-645Rov [facility] Comment on above:Performed By: #### CMP #### [facility] [address] [address] [address] Praveen Yancey nitrogen [Mass/Vol]29.0 mg/dLCritically high7.0-18.0The [facility] MemorialComment on above:Performed By: #### CMP #### [facility] [address] [place] [address] Dr. Praveen Yancey nitrogen/Creatinine [Mass ratio]24.6 mg/mgNoHolzer HospitalComment on above:Performed By: #### CMP #### [facility] [address] [place] [address] Dr. Praveen Martinez 56-18-6421WDX Coag (PPP) [Relative time]1.15 {INR} NormalThe [facility] MemorialComment on above:Performed By: #### PTT, PT #### [facility] [address] [place] [address] Dr. Praveen Luna GUIDELINESSEE BELOWOhio Valley HospitalComment on above:Result Comment: DESIRED INR: 2.0 - 3.0 CONDITIONS NOT LISTED BELOW 2.5 - 3.5 FOR PROSTHETIC HEART VALVE REPLACEMENT 2.5 - 3.5 RECURRENT THROMBOSIS Performed By: #### PTT, PT #### [facility] [address] [place] [address] Dr. Praveen Rogers Coag (PPP) [Time]12.3 sCritically high9.0-11.6The [facility] MemorialComment on above:Performed By: #### PTT, PT #### [facility] [address] [place] [address] Dr. Praveen Oropeza 64-26-4086dODR Coag (Bld) [Time]30.9 mRniyth05.3-36.2The [facility] MemorialComment on above:Performed By: #### PTT, PT ####[facility] [address] [address]Dr. Praveen ColladoXR CHEST 1 Von 98-95-0225JB CHEST 1 VEXAM: XR CHEST 1 V [...] Electronically authenticated by: Elizabeth FAJARDO Date: 2021-08-25 02:[address] [place], [place] [address]GLUCOSE POCon 15-28-1967Pmgnugi [Mass/Vol]76 mg/dL70 - 99 mg/dL OSLake County Memorial Hospital - WestPo Sample TypeCAPBLTwin City HospitalTest performed at address of the patient encounter.OSP[facility] Specialized HospitalGlucose [Mass/Vol]75 mg/dL70 - 99 mg/dLTwin City HospitalPo Sample TypeVENOOKettering Health PrebleTest performed at address of the patient encounter.[facility] ULTRASOUND ENDOSCOPICon 23-46-1600Mzl [facility] Gastroenterology Patient Name: Jonatan Olivarez Procedure [...] (Doctor), Marquita Henderson RN (Nurse), Bonnie Leija Security Operations Specialist (Security Operations Specialist), Leighton Tabares MD (Doctor) Referring MD: Bonnie Sahu APRN-DISTRIBUTED GENERATION PROJECT MANAGER (Referring MD) Medicines: Monitored Anesthesia Care, Cipro [...] by the physician, the nurse and the cowlman in the procedure room at 14:30 PM. [...] of the pancr (more content not included)...LAB, [facility]CB with Auto Differentialon 35-61-9849Zvicxfap Eos #0.30[facility] HealthAbsolute Immature Granulocyte0.03Mer[facility] HealthAbsolute Lymph #2.48Mer[facility] HealthAbsolute Denali #0.71Mercy HealthBasophils (Bld) [#/Vol]0.14 10*3/uLMer HealthBasophils/100 WBC (Bld)1 %0 - 2 %[facility]omerene HospitalEosinophils/100 WBC (Bld)3 %1 - 4 %[facility] HospitalHematocrit (Bld) [Volume fraction]33.0 %Low36.3 - 47.1 %[facility] HospitalHemoglobin.gastrointestinal spec 1 Ql (Stl)10.2 g/dLLow11.9 - 15.1 g/dLPomerene HospitalImmature granulocytes/100 WBC (Bld) 0 %0[facility] HealthInterpretation and review of laboratory resultsAbnormalPomerene HospitalLymphocytes/100 WBC (Bld)21 %Low24 - 43 %Veterans Health AdministrationH (RBC) [Entitic mass]30.1 pg25.2 - 33.5 pgVeterans Health AdministrationHC (RBC) [Mass/Vol]30.9 g/dL28.4 - 34.8 g/dLVeterans Health AdministrationV (RBC) [Entitic vol]97.3 fL82.6 - 102.9 fLPomerene Hospital Monocytes/100 WBC (Bld)6 %3 - 12 %Pomerene HospitalNRBC Automated0.00.0 per 100 WBC [facility] HealthPlatelet distribution width (Bld) [Ratio]15.5 %High11.8 - 14.4 % Merc HealthPlatelet mean volume (Bld) [Entitic vol]10.3 fL8.1 - 13.5 fLAshtabula County Medical Center HealthPlatelets (Bld) [#/Vol]313 10*3/uLMercy HealthRBC (Bld) [#/Vol]3.39 10*6/uLLow3.95 - 5.11 m/uLMer HealthSegmented neutrophils/100 WBC (Bld)69 % High36 - 65 %Mercy HealthSegs Absolute7.95[facility] (d) [#/Vol]11.6 10*3/uLHighGrant Regional Health CenterCT ABDOMEN PELVIS W IV CONTRAST [...] femoral bypass which appears patent. However, the sitka superior femoral artery just distal to the graft appears thrombosed on the left side. RECOMMENDATIONS: 1. Advise MRI of the abdomen/MRCP with gadolinium contrast enhancement. 2. Advise bilateral mammography in this patient. The patient has no mammograms on file. The findings were sent to the Radiology Results Communication Center at 6:23 pm on 06/20/2021to be communicated to a licensed caregiver. [facility] RIS CONSOLIDATEDEXAMINATION: CT OF THE ABDOMEN AND [...] there appears be a thrombosis of the sitka superior femoral artery on the left. Numerous [...] there appears be a thrombosis of the sitka superior femoral artery on the left. Numerous [...] femoral bypass which appears patent. However, the sitka superior femoral artery just distal to the graft appears thrombosed on the left side. RECOMMENDATIONS: 1. Advise MRI of the abdomen/MRCP with gadolinium contrast enhancement. 2. Advise bilateral mammography in this patient. The patient has no mammograms on file. The findings were sent to the Radiology Results Communication Center at 6:23 pm on 06/20/2021to be communicated to a licensed caregiver. [employer] Phone: radiology Study observation (narrative)[employer] Phone: cT ABDOMEN PELVIS W IV CONTRAST Additional Contrast? OralOrdered By: Jose Ruslan on 12-31-3232VivwcSt[employer] Phone: Comprehensive Metabolic Panel with Bilirubinon 44-82-9366Jampujv [Mass/Vol]3.3 g/dLLow3.5 - 5.2 g/dLAshtabula County Medical Center Zextit Albumin/Globulin [Mass ratio]1.2 {ratio}SennariALP (Bld) [Catalytic activity/Vol]129 U/LHigh35 - 104 U/LMercy HealthALT [Catalytic activity/Vol]8 U/L5 - 33 U/LMercy HealthAnion gap [Moles/Vol]12 mmol/L9 - 17 mmol/LMercy Health AST [Catalytic activity/Vol]11 U/L<32Mercy HealthBilirubin [Mass/Vol]0.23 mg/dL Low0.3 - 1.2 mg/dLMerAppAddictive HealthBilirubin, IndirectCan not be calculated0.00 - 1.00 mg/dLMercy HealthBilirubin.indirect [Mass/Vol]mg/dL<0.31 mg/dLAshtabula [facility] Center Health Calcium [Mass/Vol]8.7 mg/dL8.6 - 10.4 mg/dLMer HealthChloride [Moles/Vol]102 mmol/L98 - 107 mmol/LMercy HealthCO2 [Moles/Vol]25 mmol/L20 - 31 mmol/LMercy HealthCreatinine [Mass/Vol]0.95 mg/dLHigh0.50 - 0.90 mg/dLMer HealthFree PSA/Total PSA [Mass fraction]6.0 g/dLLow6.4 - 8.3 g/dLMercy HealthGFR >60>60 mL/minMercy HealthGFR Non- Dsmezdcx99 mL/minLow>60Pomerene HospitalGlucose [Mass/Vol]119 mg/gHSiix78 - 99 mg/dLPomerene HospitalInterpretation and review of laboratory resultsAbnormalPomerene HospitalPotassium [Moles/Vol]3.0 mmol/L Low3.7 - 5.3 mmol/LMercy HealthSodium [Moles/Vol]139 mmol/L135 - 144 mmol/LMercy HealthUrea nitrogen (BldV) [Mass/Vol]22 mg/dL8 - 23 mg/dLGrant Regional Health CenterLaboratory - Chemistry and Chemistry - challengeon [id number]/1.73 sq M.predicted MDRD (S/P/Bld) [Vol rate/Area][facility] Centerment on above:Average GFR for 60-69 years old: 85 mL/min/1.73sq m Chronic Kidney Disease: <60 mL/min/1.73sq m Kidney failure: <15 mL/min/1.73sq m eGFR calculated using average adult body mass. Additional eGFR calculator available at: http://www.[employer]oot [employer]oodle/multiple_crcl_2012.htm Stage 1: Some kidney damage normal GFR Stage 2: Mild kidney damage GFR 60-89 Stage 3: Moderate kidney damage GFR 30-59 Stage 4: Severe kidney damage GFR 15-29 Stage 5: Severe kidney damage GFR <15 ESRD - chronic treatment by dialysis or transplant XR HIP RIGHT (2-3 VIEWS)on . Severe end-stage right hip osteoarthrosis. Diffuse osteopenia. 2. No acute fracture or dislocation. [facility] CONSOLIDATEDEXAMINATION: TWO XRAY VIEWS [...] tissue calcifications overlying the proximal right thigh. [facility] Orlando Brumfield MD - [...] osteopenia. 2. No acute fracture or dislocation. [employer] Phone: radiology Study observation (narrative)[employer] Phone: XR HIP RIGHT (2-3 VIEWS)Ordered By: Orlando Callejas on [phone] Technologies Phone: Basic Metabolic Panel w/ Reflex to MGon 03-19-2021 Anion gap [Moles/Vol]13 mmol/L9 - 17 mmol/LMercy HealthCalcium [Mass/Vol]9.6 mg/dL8.6 - 10.4 mg/dLAshtabula County Medical Center HealthChloride [Moles/Vol]95 mmol/LLow98 - 107 mmol/L [facility] ZextitCO2 [Moles/Vol]32 mmol/LHigh20 - 31 mmol/LMercy HealthCreatinine [Mass/Vol]1.2 mg/dLHigh0.50 - 0.90 mg/dLAshtabula County Medical Center HealthGFR Ezkyedbq14 mL/minLow>60Mer HealthGFR Non- Ftltcmyy25 mL/minLow>60[facility] Health Glucose [Mass/Vol]98 mg/dL70 - 99 mg/dLAshtabula County [facility] Center HealthInterpretation and review of laboratory resultsAbnormalAshtabula County Medical Center HealthPotassium [Moles/Vol]4.3 mmol/L3.7 - 5.3 mmol/LMercy HealthSodium [Moles/Vol]140 mmol/L135 - 144 mmol/LMercy HealthUrea nitrogen (BldV) [Mass/Vol]17 mg/dL8 - 23 mg/dLAshtabula County Medical Center HealthUrea nitrogen/Creatinine (Bld) [Mass ratio]14[facility] CenterCBC Auto Differentialon [id number] Eos #0.31MerShriners Hospital for ChildrenAbsolute Immature Granulocyte<0.03Mer HealthAbsolute Lymph #0.94LowMer HealthAbsolute Denali # 0.39Mer HealthBasophils (Bld) [#/Vol]0.04 10*3/uLMer HealthBasophils/100 WBC (Bld)1 %0 - 2 %[facility] HospitalDifferential TypeNOT REPORTEDPomerene Hospital Eosinophils/100 WBC (Bld)6 %High1 - 4 %[facility] HospitalHematocrit (Bld) [Volume fraction]42.9 %36.3 - 47.1 %[facility] HospitalHemoglobin.gastrointestinal spec 1 Ql (Stl)13.5 g/dL11.9 - 15.1 g/dLPomerene HospitalImmature granulocytes/100 WBC (Bld)0 % 0Pomerene HospitalInterpretation and review of laboratory resultsAbnormalPomerene Hospital Lymphocytes/100 WBC (Bld)19 %Low24 - 43 %[facility] AdministrationH (RBC) [Entitic mass] 28.4 pg25.2 - 33.5 pgVeterans Health AdministrationHC (RBC) [Mass/Vol]31.5 g/dL28.4 - 34.8 g/dL Veterans Health AdministrationV (RBC) [Entitic vol]90.3 fL82.6 - 102.9 fLPomerene Hospital Monocytes/100 WBC (Bld)8 %3 - 12 %[facility] HospitalNRBC Automated0.00.0 per 100 WBC [facility] HealthPlatelet distribution width (Bld) [Ratio]15.2 %High11.8 - 14.4 % [facility] HealthPlatelet EstimateNOT REPORTEDAshtabula County Medical Center HealthPlatelet mean volume (Bld) [Entitic vol]9.0 fL8.1 - 13.5 fLAshtabula County Medical Center HealthPlatelets (Bld) [#/Vol]254 10*3/uL [facility] HospitalRBC (Bld) [#/Vol]4.75 10*6/uL3.95 - 5.11 m/uLPomerene HospitalRBC (Bld) [#/Vol]NOT REPORTEDPomerene HospitalSegmented neutrophils/100 WBC (Bld)66 %High36 - 65 %[facility] HospitalSegs Absolute3.20Pomerene HospitalWBC (Bld) [#/Vol]4.9 10*3/uLPomerene HospitalWBC (Bld) [#/Vol]NOT REPORTEDGrant Regional Health CenterLaboratory - Chemistry and Chemistry - challengeon [id number]/1.73 sq M.predicted MDRD (S/P/Bld) [Vol rate/Area][facility] HospitalComment on above:Average GFR for 60-69 years old: 85 mL/min/1.73sq m Chronic Kidney Disease: <60 mL/min/1.73sq m Kidney failure: <15 mL/min/1.73sq m eGFR calculated using average adult body mass. Additional eGFR calculator available at: http://www.[employer]/multiple_crcl_2011.htm Stage 1: Some kidney damage normal GFR Stage 2: Mild kidney damage GFR 60-89 Stage 3: Moderate kidney damage GFR 30-59 Stage 4: Severe kidney damage GFR 15-29 Stage 5: Severe kidney damage GFR <15 ESRD - chronic treatment by dialysis or transplant Basic Metabolic Panel w/ Reflex to MGon [id number] gap [Moles/Vol]12 mmol/L 9 - 17 mmol/LMercy HealthCalcium [Mass/Vol]9.4 mg/dL8.6 - 10.4 mg/dLPomerene Hospital Chloride [Moles/Vol]102 mmol/L98 - 107 mmol/LMercy HealthCO2 [Moles/Vol]25 mmol/L20 - 31 mmol/LMercy HealthCreatinine [Mass/Vol]1 mg/dLHigh0.50 - 0.90 mg/dLPomerene HospitalGFR >60>60 mL/minAshtabula County Medical Center HealthGFR Non- Reavtvwp83 mL/minLow>60P[facility] HospitalGlucose [Mass/Vol]121 mg/uEChle87 - 99 mg/dL [facility] HospitalInterpretation and review of laboratory resultsAbnormalPomerene Hospital Potassium [Moles/Vol]3.7 mmol/L3.7 - 5.3 mmol/LMercy HealthSodium [Moles/Vol]139 mmol/L135 - 144 mmol/LMercy HealthUrea nitrogen (BldV) [Mass/Vol]13 mg/dL8 - 23 mg/dLPomerene HospitalUrea nitrogen/Creatinine (Bld) [Mass ratio]13[facility] CenterCB Auto Differentialon [id number] Eos #0.36MerShriners Hospital for ChildrenAbsolute Immature Granulocyte<0.03Pomerene HospitalAbsolute Lymph #1.05LowMer HealthAbsolute Denali #0.48Mer HealthBasophils (Bld) [#/Vol]0.05 10*3/uLPomerene Hospital Basophils/100 WBC (Bld)1 %0 - 2 %[facility] HospitalDifferential TypeNOT REPORTEDMerShriners Hospital for ChildrenEosinophils/100 WBC (Bld)7 %High1 - 4 %[facility] HospitalHematocrit (Bld) [Volume fraction]40.5 %36.3 - 47.1 %[facility] HospitalHemoglobin.gastrointestinal spec 1 Ql (Stl)13.0 g/dL11.9 - 15.1 g/dLPomerene HospitalImmature granulocytes/100 WBC (Bld)0 %0P[facility] HospitalInterpretation and review of laboratory resultsAbnormal P[facility] HospitalLymphocytes/100 WBC (Bld)19 %Low24 - 43 %[facility] AdministrationH (RBC) [Entitic mass]28.8 pg25.2 - 33.5 pgVeterans Health AdministrationHC (RBC) [Mass/Vol]32.1 g/dL 28.4 - 34.8 g/dLVeterans Health AdministrationV (RBC) [Entitic vol]89.6 fL82.6 - 102.9 fLPomerene HospitalMonocytes/100 WBC (Bld)9 %3 - 12 %[facility] HospitalNRBC Automated0.00.0 per 100 WBCAshtabula County Medical Center HealthPlatelet distribution width (Bld) [Ratio]15.8 %High11.8 - 14.4 % [facility] HealthPlatelet EstimateNOT REPORTEDAshtabula County Medical Center HealthPlatelet mean volume (Bld) [Entitic vol]9.0 fL8.1 - 13.5 fLAshtabula County Medical Center HealthPlatelets (Bld) [#/Vol]219 10*3/uL [facility] HospitalRBC (Bld) [#/Vol]4.52 10*6/uL3.95 - 5.11 m/uLPomerene HospitalRBC (Bld) [#/Vol]NOT REPORTEDPomerene HospitalSegmented neutrophils/100 WBC (Bld)64 %36 - 65 % P[facility] HospitalSe Absolute3.51MerShriners Hospital for ChildrenWBC (Bld) [#/Vol]5.5 10*3/uLPomerene HospitalWBC (Bld) [#/Vol]NOT REPORTEDGrant Regional Health CenterLaboratory - Chemistry and Chemistry - challengeon [id number]/1.73 sq M.predicted MDRD (S/P/Bld) [Vol rate/Area][facility] on above:Average GFR for 60-69 years old: 85 mL/min/1.73sq m Chronic Kidney Disease: <60 mL/min/1.73sq m Kidney failure: <15 mL/min/1.73sq m eGFR calculated using average adult body mass. Additional eGFR calculator available at: http://www.[employer]/multiple_crcl_2012.htm Stage 1: Some kidney damage normal GFR Stage 2: Mild kidney damage GFR 60-89 Stage 3: Moderate kidney damage GFR 30-59 Stage 4: Severe kidney damage GFR 15-29 Stage 5: Severe kidney damage GFR <15 ESRD - chronic treatment by dialysis or transplant XR CHEST (2 VW)on [id number] significant change in vascular congestion with findings of interstitial edema and trace pleural effusions. [facility] CONSOLIDATEDEXAMINATION: TWO XRAY VIEWS OF THE CHEST 03/18/2021 8:19 am COMPARISON: Chest CT and radiograph 03/17/2021 HISTORY: ORDERING SYSTEM PROVIDED HISTORY: hypoxia TECHNOLOGIST PROVIDED HISTORY: hypoxia FINDINGS: Bilateral perihilar opacities, interstitial opacities and mild septal thickening. Blunting of the costophrenic angles. No pneumothorax identified. No significant effusion. [facility] Diego Gamble MD - 03/18/2021 EXAMINATION: TWO [...] of interstitial edema and trace pleural effusions. [employer] Phone: radiology Study observation (narrative)[employer] Phone: XR CHEST (2 VW)Ordered By: Diego Alcantara on 03-18-2021 [employer] Phone: Basic Metabolic Panelon [id number] gap [Moles/Vol]12 mmol/L9 - 17 mmol/LMercy HealthCalcium [Mass/Vol]9.2 mg/dL8.6 - 10.4 mg/dLAshtabula County Medical Center HealthChloride [Moles/Vol]106 mmol/L98 - 107 mmol/LMercy Health CO2 [Moles/Vol]22 mmol/L20 - 31 mmol/LMercy HealthCreatinine [Mass/Vol]1.07 mg/dLHigh0.50 - 0.90 mg/dLKettering Health Miamisburgcy HealthGFR >60>60 mL/minMercy HealthGFR Non- Chnqdanu99 mL/minLow>60Mer HealthGlucose [Mass/Vol]92 mg/dL70 - 99 mg/dLAshtabula County Medical Center HealthPotassium [Moles/Vol]4.0 mmol/L3.7 - 5.3 mmol/L [facility] ZextitSodium [Moles/Vol]140 mmol/L135 - 144 mmol/LMercy HealthUrea nitrogen (BldV) [Mass/Vol]14 mg/dL8 - 23 mg/dLAshtabula County Medical Center HealthUrea nitrogen/Creatinine (Bld) [Mass ratio]13MerShriners Hospital for ChildrenBrain Natriuretic Peptideon [id number] InterpretationNOT REPORTEDMerShriners Hospital for ChildrenNatriuretic peptide B (Bld) [Mass/Vol]6864 pg/mLHigh<300MerShriners Hospital for ChildrenComment on above: An age-independent cutoff point of 300 pg/ml has a 98% negative predictive value excluding acute heart failure. C-Reactive Proteinon 05-04-1291PDC [Mass/Vol]159.4 mg/LHigh0.0 - 5.0 mg/LMercy HealthInterpretation and review of laboratory resultsAbnormalMerOhio Valley HospitalCBC Auto Differentialon [id number] Eos #0.38Mercy HealthAbsolute Immature Granulocyte<0.03Mercy HealthAbsolute Lymph #1.29Mercy HealthAbsolute Denali #0.48Mercy HealthBasophils (Bld) [#/Vol]0.05 10*3/uLMer Health Basophils/100 WBC (Bld)1 %0 - 2 %[facility] HospitalDifferential TypeNOT REPORTEDMer HealthEosinophils/100 WBC (Bld)6 %High1 - 4 %[facility] HospitalHematocrit (Bld) [Volume fraction]33.9 %Low36.3 - 47.1 %[facility] HospitalHemoglobin.gastrointestinal spec 1 Ql (Stl)11.0 g/dLLow11.9 - 15.1 g/dLPomerene HospitalImmature granulocytes/100 WBC (Bld)0 %0[facility] HealthInterpretation and review of laboratory resultsAbnormal P[facility] HospitalLymphocytes/100 WBC (Bld)19 %Low24 - 43 %[facility] AdministrationH (RBC) [Entitic mass]29.0 pg25.2 - 33.5 pgVeterans Health AdministrationHC (RBC) [Mass/Vol]32.4 g/dL 28.4 - 34.8 g/dLVeterans Health AdministrationV (RBC) [Entitic vol]89.4 fL82.6 - 102.9 fLAshtabula County Medical Center HealthMonocytes/100 WBC (Bld)7 %3 - 12 %[facility] HospitalNRBC Automated0.00.0 per 100 WBCAshtabula County Medical Center HealthPlatelet distribution width (Bld) [Ratio]16.2 %High11.8 - 14.4 % [facility] HealthPlatelet EstimateNOT REPORTEDAshtabula County Medical Center HealthPlatelet mean volume (Bld) [Entitic vol]10.1 fL8.1 - 13.5 fLMer HealthPlatelets (Bld) [#/Vol]203 10*3/uL Merc HealthRBC (Bld) [#/Vol]3.79 10*6/uLLow3.95 - 5.11 m/uLMer HealthRBC (Bld) [#/Vol]NOT REPORTEDMer HealthSegmented neutrophils/100 WBC (Bld)67 %High 36 - 65 %[facility] HospitalSegs Absolute4.51Mer HealthWBC (Bld) [#/Vol]6.7 10*3/uL Merc HealthWBC (Bld) [#/Vol]NOT REPORTEDMer HealthMercy HealthAbsolute Eos # 0.31Mer HealthAbsolute Immature Granulocyte<0.03Mer HealthAbsolute Lymph # 1.26Mer HealthAbsolute Denali #0.46Mer HealthBasophils (Bld) [#/Vol]0.05 10*3/uLMer HealthBasophils/100 WBC (Bld)1 %0 - 2 %[facility] HospitalDifferential TypeNOT REPORTEDPomerene HospitalEosinophils/100 WBC (Bld)5 %High1 - 4 %[facility] Hematocrit (Bld) [Volume fraction]34.3 %Low36.3 - 47.1 %[facility] Hemoglobin.gastrointestinal spec 1 Ql (Stl)10.8 g/dLLow11.9 - 15.1 g/dLPomerene HospitalImmature granulocytes/100 WBC (Bld)0 %0P[facility] HospitalInterpretation and review of laboratory resultsAbnormalPomerene HospitalLymphocytes/100 WBC (Bld)20 %Low 24 - 43 %[facility] HospitalMCH (RBC) [Entitic mass]28.6 pg25.2 - 33.5 pgPomerene Hospital MCHC (RBC) [Mass/Vol]31.5 g/dL28.4 - 34.8 g/dLPomerene HospitalMCV (RBC) [Entitic vol]91.0 fL82.6 - 102.9 fLAshtabula County Medical Center HealthMonocytes/100 WBC (Bld)7 %3 - 12 %[facility] HospitalNRBC Automated0.00.0 per 100 WBCAshtabula County Medical Center HealthPlatelet distribution width (Bld) [Ratio]16.0 %High11.8 - 14.4 %[facility] HealthPlatelet EstimateNOT REPORTED [facility] HealthPlatelet mean volume (Bld) [Entitic vol]9.1 fL8.1 - 13.5 fLAshtabula County Medical Center HealthPlatelets (Bld) [#/Vol]195 10*3/uLMer HealthRBC (Bld) [#/Vol]3.77 10*6/uLLow3.95 - 5.11 m/uLMer HealthRBC (Bld) [#/Vol]NOT REPORTEDPomerene Hospital Segmented neutrophils/100 WBC (Bld)67 %High36 - 65 %Pomerene HospitalSe Absolute 4.26Pomerene HospitalWBC (Bld) [#/Vol]6.4 10*3/uLPomerene HospitalWBC (Bld) [#/Vol]NOT REPORTEDGrant Regional Health CenterCOVID-19, Rapidon [id number]-CoV-2 (COVID- 19) RNA JANIA+probe Ql (Unsp spec)Not detectedNot DetectedPomerene HospitalComment on above: Rapid NAAT: The specimen [...] management decisions. Fact sheet for Healthcare Providers: https://www.fda.gov/media/337665/download Fact sheet for Patients: https://www.fda.gov/media/768399/download Methodology: Isothermal Nucleic Acid Amplification Specimen Description.NASOPHARYNGEAL SWABGrant Regional Health CenterCT CHEST PULMONARY EMBOLISM W CONTRASTon [id number] evidence of pulmonary embolism. Pulmonary artery hypertension, [...] Additional unchanged findings, as above. RECOMMENDATIONS: Unavailable [facility] RIS CONSOLIDATEDEXAMINATION: CTA OF THE CHEST 03/17/2021 [...] No acute bone or soft tissue abnormality. [facility] Diego Murillo MD - 03/17/2021 EXAMINATION: CTA [...] Additional unchanged findings, as above. RECOMMENDATIONS: Unavailable [employer] Phone: radiology Study observation (narrative)[employer] Phone: cT CHEST PULMONARY EMBOLISM W CONTRASTOrdered By: Diego Mcclure on 56-65-2641BoyptStim[employer] Phone: [phone]-Xnxnb, Quantitativeon 42-72-0658C-Dimer, Quant2.31 City HospitalSennariComment on above: When combined with a low [...] distal DVT. Interpretation and review of laboratory resultsAbnoasheville specialty [email or web address] EKG 12 Leadon 30-84-5475Dyotps Qccm99EGPOwtuyTegile Systems Phone: p Biuv39okaynuhXabnzExacter Phone: p-R Bpuisqiz731 [employer] Phone: Q-T Ppoqsjnh973 [employer] Phone: QRS Whmwjffv82 [employer] Phone: QTc Calculation (Bazett)403 [employer] Phone: R Ocgf77jqvjbdqJwqgpExacter Phone: T Urta10hylbdgrLolfzExacter Phone: Ventricular Lsxu58ELBEauxaTegile Systems Phone: Normal sinus rhythm Possible Left atrial enlargement Incomplete right bundle branch block Borderline ECG When compared with ECG of 21-FEB-2021 19:10, No significant change was found Confirmed by Josef Brooks MD ([id number]) on 03/17/2021 9:28:37 [facility] Josef Brooks MD - 03/17/2021 Normal sinus rhythm Possible Left atrial enlargement Incomplete right bundle branch block Borderline ECG When compared with ECG of 21-FEB-2021 19:10, No significant change was found Confirmed by Josef Brooks MD ([id number]) on 03/17/2021 9:28:37 PMAshtabula County Medical Center Health Work Phone: [facility] [employer] Work Phone: laboratory - Chemistry and Chemistry - challengeon [id number]/1.73 sq M.predicted MDRD (S/P/Bld) [Vol rate/Area][facility] [employer] Comment on above:Average GFR for 60-69 years old: 85 mL/min/1.73sq m Chronic Kidney Disease: <60 mL/min/1.73sq m Kidney failure: <15 mL/min/1.73sq m eGFR calculated using average adult body mass. Additional eGFR calculator available at: http://www.[employer]/multiple_crcl_2012.htm Stage 1: Some kidney damage normal GFR Stage 2: Mild kidney damage GFR 60-89 Stage 3: Moderate kidney damage GFR 30-59 Stage 4: Severe kidney damage GFR 15-29 Stage 5: Severe kidney damage GFR <15 ESRD - chronic treatment by dialysis or transplant Lactate, Sepsison 57-28-0732Oonxtr Acid, Sepsis0.6 mmol/L0.5 - 1.9 mmol/LMercy HealthLactic Acid, Sepsis, Whole BloodNOT REPORTED0.5 - 1.9 mmol/LMercy Health [facility] HealthMicroscopic Urinalysison 03-17-2021-[facility] HealthAmorphous, UANOT REPORTEDNoneMercy HealthBacteria, UA3+AbnormalNoneMercy HealthCasts UANOT REPORTED/LPFMercy HealthCrystals, UANOT REPORTEDNone /HPFMercy HealthEpithelial Cells UA2 TO 5Mercy HealthInterpretation and review of laboratory results AbnormalMercy HealthMucus, UANOT REPORTEDNoneMercy HealthOther Observations UA NOT REPORTEDNOT REQ.Mercy HealthRBC, UA0 TO 2Mercy HealthRenal Epithelial, UANOT REPORTED0 /HPFMercy HealthTrichomonas, UANOT REPORTEDNoneMercy HealthWBC, UA0 TO 2Mercy HealthYeast, UANOT REPORTEDNoneMercy HealthMercy HealthNo Panel Informationon [id number] and review of laboratory resultsAbnormal Mercy HealthMercy HealthProtime-INRon 73-40-7591FZJ Coag (Bld) [Relative time] 1.0 {INR}Mercy HealthComment on above: Non-therapeutic Range: INR = 0.9-1.2 Therapeutic Range: Moderate Anticoagulant Intensity: INR = 2.0-3.0 High Anticoagulant Intensity: INR = 2.5-3.5 PT Coag (PPP) [Time]13 sMercy HealthMercy HealthSedimentation Rateon 03-17-2021 Interpretation and review of laboratory resultsAbnormalMercy HealthSed Rate27 mm High0 - 20 mmMercy HealthMercy HealthTroponinon 61-53-1603Jriobpbd InterpNOT REPORTEDMercy HealthTroponin TNOT REPORTED<0.03 ng/mLMercy HealthTroponin, High Sensitivity9 ng/L0 - 14 ng/LMercy HealthComment on above: High Sensitivity Troponin values cannot be compared with other Troponin methodologies. Patients with high levels of Biotin oral intake (i.e >5mg/day) may have falsely decreased Troponin levels. Samples collected within 8 hours of biotin intake may require additional information for diagnosis. Mercy HealthUrinalysis Reflex to Cultureon [id number] UrineNegative NEGATIVEMercy HealthColor, UAYellowYellowMercy HealthGlucose, UrNegativeNEGATIVE Mercy HealthInterpretation and review of laboratory resultsAbnormalMercy Health Ketones Ql (U)NegativeNEGATIVEMercy HealthLeukocyte esterase Test strip Ql (U) NegativeNEGATIVEMercy HealthNitrite, UrinePositiveAbnormalNEGATIVEMercy Health pH, UA6.5Mercy HealthProtein, UANegativeNEGATIVEMercy HealthSpecific [place], UA 1.020Mercy HealthTurbidity UAClearClearMercy HealthUrinalysis CommentsNOT REPORTEDMercy HealthUrine HgbNegativeNEGATIVEMercy HealthUrobilinogen, Urine NormalNormalMercy HealthMercy HealthVL DUP LOWER EXTREMITY VENOUS BILATERALon 66-35-3210AncyJose Mercer MD - 03/17/2021 [facility] Vascular Lower Extremities DVT Study Procedure Patient Name SHER Date of Study 03/17/2021 JONATAN Phillips Date of 1960 Gender Female Age 60 year(s) Race Room Number 01A Corporate ID # [id number] Patient MR # [id number] Leather Stretcher Corrine Peterson Interpreting Physician Jose Mercer MD Referring Nurse Fredy Billingsley, Referring Physician Practitioner DOCUMENT CLERK-DISTRIBUTED GENERATION PROJECT MANAGER Procedure Type of Study: Veins: Lower Extremities [...] + !Location !Visualized!Compressibility!Thrombosis! + (more content not included)...[employer] Phone: radiology Study observation (narrative)[employer] Phone: VL DUP LOWER EXTREMITY VENOUS BILATERALOrdered By: Jose Mercer on 25-29-9043PxunmStimulus Technologies Phone: xr CHEST PORTABLEon 89-38-2849Jrkvywo reticular airspace opacities. This could represent interstitial [...] versus atypical/viral infection. Small bilateral pleural effusions. [employer] Phone: radiology Study observation (narrative)[employer] Phone: XR CHEST PORTABLEOrdered By: Carlo Song on 74-69-7708Aoetg Health Work Phone: basic to comprehensive upgradeon 79-16-3963Wvcvmvk [Mass/Vol]3.4 g/dLLow3.5 - 5.2 g/dLMer HealthAlbumin/Globulin [Mass ratio]1.1 {ratio}Mercy HealthThe Halo GroupALP (Bld) [Catalytic activity/Vol]94 U/L35 - 104 U/LMercy HealthALT [Catalytic activity/Vol]9 U/L5 - 33 U/LMercy HealthAST [Catalytic activity/Vol]11 U/L<32Mer HealthBilirubin [Mass/Vol]0.17 mg/dLLow0.3 - 1.2 mg/dLPomerene HospitalFree PSA/Total PSA [Mass fraction]6.4 g/dL6.4 - 8.3 g/dLAshtabula County Medical Center HealthInterpretation and review of laboratory resultsAbnormalGrant Regional Health Center Auto Differentialon [id number] Eos #0.39Mer HealthAbsolute Immature Granulocyte<0.03Mer HealthAbsolute Lymph #1.46Mer HealthAbsolute Denali #0.42Mer HealthBasophils (Bld) [#/Vol]0.07 10*3/uLMer Health Basophils/100 WBC (Bld)1 %0 - 2 %[facility] HospitalDifferential TypeNOT REPORTEDAshtabula County Medical Center HealthEosinophils/100 WBC (Bld)6 %High1 - 4 %[facility] HospitalHematocrit (Bld) [Volume fraction]43.4 %36.3 - 47.1 %[facility] HospitalHemoglobin.gastrointestinal spec 1 Ql (Stl)13.8 g/dL11.9 - 15.1 g/dLPomerene HospitalImmature granulocytes/100 WBC (Bld)0 %0P[facility]rene HospitalInterpretation and review of laboratory resultsAbnormal P[facility]rene HospitalLymphocytes/100 WBC (Bld)24 %24 - 43 %[facility] AdministrationH (RBC) [Entitic mass]29.3 pg25.2 - 33.5 pgVeterans Health AdministrationHC (RBC) [Mass/Vol]31.8 g/dL28.4 - 34.8 g/dLVeterans Health AdministrationV (RBC) [Entitic vol]92.1 fL82.6 - 102.9 fLPomerene Hospital Monocytes/100 WBC (Bld)7 %3 - 12 %[facility] HospitalNRBC Automated0.00.0 per 100 WBC [facility] HealthPlatelet distribution width (Bld) [Ratio]14.7 %High11.8 - 14.4 % [facility] HealthPlatelet EstimateNOT REPORTEDAshtabula County Medical Center HealthPlatelet mean volume (Bld) [Entitic vol]8.9 fL8.1 - 13.5 fLAshtabula County Medical Center HealthPlatelets (Bld) [#/Vol]232 10*3/uL [facility] HealthRBC (Bld) [#/Vol]4.71 10*6/uL3.95 - 5.11 m/uLMer HealthRBC (Bld) [#/Vol]NOT REPORTEDPomerene HospitalSegmented neutrophils/100 WBC (Bld)62 %36 - 65 % Pomerene HospitalSegs Absolute3.83Mer HealthWBC (Bld) [#/Vol]6.2 10*3/uLMer HealthWBC (Bld) [#/Vol]NOT REPORTEDClermont County Hospitalcy HealthCT CERVICAL SPINE WO CONTRASTon 49-37-1736Kv acute abnormality of the cervical spine. [facility] CONSOLIDATEDEXAMINATION: CT OF THE [...] There is no prevertebral soft tissue swelling. [facility] Nia Rouse MD - [...] No acute abnormality of the cervical spine. [employer] Phone: radiology Study observation (narrative)[employer] Phone: cT CERVICAL SPINE WO CONTRASTOrdered By: Nia Trejo on 02-55-2713HebekStimulus Technologies Phone: ct Head WO Contraston 22-15-2420Yl evidence of acute intracranial process. Mild early chronic small vessel ischemic changes noted. Recommend clinical correlation for cardiovascular risk factors. [facility] CONSOLIDATEDEXAMINATION: CT OF THE [...] tissues. No acute fracture. No scalp hematoma. [facility] Josse Gutiérrez MD - 02/09/2021 EXAMINATION: CT [...] Recommend clinical correlation for cardiovascular risk factors. [employer] Phone: radiology Study observation (narrative)[employer] Phone: cT Head WO ContrastOrdered By: Josse Ravi on 82-55-5009HfcdkStimulus Technologies Phone: Comprehensive Metabolic Panel w/ Reflex to MGon [id number] [Mass/Vol]3.7 g/dL3.5 - 5.2 g/dLMer HealthAlbumin/Globulin [Mass ratio]1.3 {ratio}Mercy HealthThe Halo GroupALP (Bld) [Catalytic activity/Vol]79 U/L35 - 104 U/LMercy [...] 8.3 g/dLMercy HealthGFR >60>60 mL/minMercy HealthGFR Non- Nqgwcvyn59 mL/minLow>60Mercy HealthGlucose [Mass/Vol]75 mg/dL70 - 99 mg/dLMercy HealthInterpretation and review of laboratory resultsAbnormalMer HealthPotassium [Moles/Vol]4.4 mmol/L 3.7 - 5.3 mmol/LMercy HealthSodium [Moles/Vol]137 mmol/L135 - 144 mmol/LMercy HealthUrea nitrogen (BldV) [Mass/Vol]22 mg/dL8 - 23 mg/dLAshtabula County [facility] Center HealthUrea nitrogen/Creatinine (Bld) [Mass ratio]23HighGrant Regional Health CenterLaboratory - Chemistry and Chemistry - challengeon [id number]/1.73 sq M.predicted MDRD (S/P/Bld) [Vol rate/Area]Pomerene HospitalComment on above:Average GFR for 60-69 years old: 85 mL/min/1.73sq m Chronic Kidney Disease: <60 mL/min/1.73sq m Kidney failure: <15 mL/min/1.73sq m eGFR calculated using average adult body mass. Additional eGFR calculator available at: http://www.Scoot [employer] Doodle/multiple_crcl_2011.htm Stage 1: Some kidney damage normal GFR [...] No evidence of acute fracture or dislocation. Myxm-kq-ryakputm glenohumeral osteoarthritis. Unchanged benign-appearing soft tissue calcification [...] clips project over the bilateral inguinal regions. [facility] Yanira Hahn MD - 02/09/2021 EXAMINATION: 4 XRAY VIEWS OF THE LEFT SHOULDER; ONE XRAY VIEW OF THE CHEST; THREE XRAY VIEWS OF THE SACRUM/COCCYX 02/09/2021 12:35 pm COMPARISON: Chest radiograph, 01/12/2021 and shoulder radiograph, 04/12/2019 HISTORY: ORDERING SYSTEM PROVIDED HISTORY: fall TECHNOLOGIST PROVIDED HISTORY: fall FINDINGS: Left shoulder: No evidence of acute fracture or dislocation. Yrqs-gc-vytrvhtu glenohumeral osteoarthritis. Unchanged benign-appearing soft tissue calcification [...] fracture of the bony sacrum or coccyx. [employer] Work Phone: No Panel InformationOrdered By: Yanira Jackson on [id number] Technologies Phone: [phone]-XWInb 01-99-5133BBE Coag (Bld) [Relative time] 1.0 {INR}[facility] HealthThe [facility] GroupMiss[facility] on above: Non-therapeutic Range: INR = 0.9-1.2 Therapeutic Range: Moderate Anticoagulant Intensity: INR = 2.0-3.0 High Anticoagulant Intensity: INR = 2.5-3.5 PT Coag (PPP) [Time]12.9 sMBlack River Memorial HospitalTroponinon 68-85-2017Jitjkctc InterpNOT REPORTEDHenry County Hospitalni TNOT REPORTED<0.03 ng/mLKettering Health MiamisburgAppAddictive [facility] Troponin, High Cyzlwsgaxuj87 ng/L0 - 14 ng/LMCoshocton Regional Medical Center on above: High Sensitivity Troponin values cannot be compared with other Troponin methodologies. Patients with high levels of Biotin oral intake (i.e >5mg/day) may have falsely decreased Troponin levels. Samples collected within 8 hours of biotin intake may require additional information for diagnosis. SennariXR CHEST PORTABLEon [id number] Study observation (narrative)[employer] Phone: XR KNEE RIGHT (3 VIEWS)on 18-22-6970Vu acute findings. [facility] CONSOLIDATEDEXAMINATION: THREE XRAY VIEWS OF THE RIGHT KNEE 02/09/2021 12:34 pm COMPARISON: January 13, 2020 HISTORY: ORDERING SYSTEM PROVIDED HISTORY: pain s/p fall TECHNOLOGIST PROVIDED HISTORY: pain s/p fall FINDINGS: Knee alignment is anatomic. No acute osseous abnormalities. There is generalized osteopenia. Whhy-om-bfjevbwz tricompartmental degenerative change most significant medial femorotibial compartment with loss joint space and osteophyte formation. No significant joint effusion. Atherosclerosis throughout the soft tissues. [facility] Lele Gómez DO - 02/09/2021 EXAMINATION: THREE XRAY VIEWS OF THE RIGHT KNEE 02/09/2021 12:34 pm COMPARISON: January 13, 2020 HISTORY: ORDERING SYSTEM PROVIDED HISTORY: pain s/p fall TECHNOLOGIST PROVIDED HISTORY: pain s/p fall FINDINGS: Knee alignment is anatomic. No acute osseous abnormalities. There is generalized osteopenia. Stnr-hj-pefycvpg tricompartmental degenerative change most significant medial femorotibial compartment with loss joint space and osteophyte formation. No significant joint effusion. Atherosclerosis throughout the soft tissues. IMPRESSION: No acute findings. [employer] Phone: radiology Study observation (narrative)[employer] Phone: XR KNEE RIGHT (3 VIEWS)Ordered By: Lele Jacques on 82-04-8546GsxcjStimulus Technologies Phone: XR SACRUM COCCYX (MIN 2 VIEWS)on 08-57-7059Rueegzwyf Study observation (narrative)[employer] Phone: XR SHOULDER LEFT (MIN 2 VIEWS)on 50-83-6725Asbtzvjvm Study observation (narrative)[employer] Phone: cBC Auto DifferentialOrdered By: Marita Munoz on 41-58-3546Znhwmlmc Eos #0.25[facility] MiamisburgShiftgig Phone: absolute Immature Granulocyte0.03[facility] Mi[facility]burgShiftgig Phone: absolute Lymph #0.77LowKettering Health MiamisburgShiftgig Phone: absolute Denali #0.29[facility] Mi[facility]burgShiftgig Phone: basophils (Bld) [#/Vol]0.09 10*3/uLKettering Health MiamisburgShiftgig Phone: basophils/100 WBC (Bld)1 %0 - 2 %[employer] Phone: differential TypeNOT REPORTEDKettering Health MiamisburgShiftgig Phone: eosinophils/100 WBC (Bld)3 %1 - 4 %[employer] Phone: Hematocrit (Bld) [Volume fraction]44.1 %36.3 - 47.1 % [employer] Phone: Hemoglobin.gastrointestinal spec 1 Ql (Stl)14.5 g/dL 11.9 - 15.1 g/dLKettering Health MiamisburgShiftgig Phone: Immature granulocytes/100 WBC (Bld)0 %0[facility] MiamisburgShiftgig Phone: Interpretation and review of laboratory results AbnormalKettering Health MiamisburgShiftgig Phone: lymphocytes/100 WBC (Bld)8 %Low24 - 43 %[employer] Phone: MCH (RBC) [Entitic mass]29.8 pg25.2 - 33.5 pgKettering Health MiamisburgShiftgig Phone: MCHC (RBC) [Mass/Vol]32.9 g/dL28.4 - 34.8 g/dLKettering Health MiamisburgShiftgig Phone: MCV (RBC) [Entitic vol]90.7 fL82.6 - 102.9 fLStimulus Technologies Phone: [phone]/100 WBC (Bld)3 %3 - 12 %[employer] Phone: NRBC Automated0.00.0 per 100 WBCStimulus Technologies Phone: Platelet distribution width (Bld) [Ratio]15.8 %High 11.8 - 14.4 %[employer] Phone: [phone] EstimateNOT REPORTEDStimulus Technologies Phone: [phone] mean volume (Bld) [Entitic vol]9.2 fL8.1 - 13.5 fLKettering Health MiamisburgShiftgig Phone: [phone] (Bld) [#/Vol]298 10*3/uLStimulus Technologies Phone: [phone] (Bld) [#/Vol]4.86 10*6/uL3.95 - 5.11 m/Shiftgig Phone: [phone] (Bld) [#/Vol]NOT REPORTEDKettering Health MiamisburgShiftgig Phone: Segmented neutrophils/100 WBC (Bld)85 %High36 - 65 % [employer] Phone: Segs Absolute7.91[facility] MiamisburgShiftgig Phone: WBC (Bld) [#/Vol]9.3 10*3/uLStimulus Technologies Phone: [phone] (Bld) [#/Vol]NOT REPORTEDKettering Health MiamisburgShiftgig Phone: [facility]burgShiftgig Phone: [phone]-16, RapidOrdered By: Marita Munoz on 76-00-1411NNIF-CoV-2 (COVID-19) RNA JANIA+probe Ql (Unsp spec)Not detectedNot DetectedStimulus Technologies Phone: comment on above: Rapid NAAT: The [...] management decisions. Fact sheet for Healthcare Providers: https://www.fda.gov/media/151731/download Fact sheet for Patients: https://www.fda.gov/media/367654/download Methodology: Isothermal Nucleic Acid Amplification Specimen Description.NASOPHARYNGEAL SWABStimulus Technologies Phone: [facility]burgShiftgig Phone: cT ABDOMEN PELVIS WO CONTRAST Additional [...] obstruction, as discussed above. 9. Atrophic right kidney.[employer] Phone: eXAMINATION: CT OF THE ABDOMEN AND [...] subcutaneous soft tissues are otherwise unremarkable in appearance.[employer] Work Phone: e, [facility] Incoming Radiant Results From [employer]el[employer] - 01/17/2021 6:31 AM EDT EXAMINATION: CT [...] as discussed above. 9. Atrophic right kidney. [employer] Phone: [employer] Phone: comprehensive Metabolic Panel w/ Reflex to MGOrdered By: Marita Munoz on 88-84-6440Eybpdfe [Mass/Vol]4.1 g/dL3.5 - 5.2 g/dLStimulus Technologies Phone: albumin/Globulin [Mass ratio]1.4 {ratio}[facility] HealthCircassia Phone: CLP (Bld) [Catalytic activity/Vol]114 U/LHigh35 - 104 U/LMuniversity hospitals cleveland medical centery [employer] Work Phone: aLT [Catalytic activity/Vol]6 U/L5 - 33 U/LMuniversity hospitals cleveland medical centery [employer] Work Phone: anion gap [Moles/Vol]14 mmol/L9 - 17 mmol/LMercy [employer] Work Phone: aST [Catalytic activity/Vol]10 U/L<32MerShiftgig Phone: bilirubin [Mass/Vol]0.38 mg/dL0.3 - 1.2 mg/dLKettering Health MiamisburgShiftgig Phone: calcium [Mass/Vol]9.6 mg/dL8.6 - 10.4 mg/dLKettering Health MiamisburgPlaid Work Phone: Shloride [Moles/Vol]99 mmol/L98 - 107 mmol/LMZeusy [employer] Work Phone: cO2 [Moles/Vol]23 mmol/L20 - 31 mmol/LMgood samaritan hospital [employer] Work Phone: creatinine [Mass/Vol]1.09 mg/dLHigh0.50 - 0.90 mg/dL [facility] [employer] Phone: Free PSA/Total PSA [Mass fraction]7.0 g/dL6.4 - 8.3 g/dLKettering Health MiamisburgShiftgig Phone: GFR >60>60 mL/minKettering Health MiamisburgShiftgig Phone: GFR Non- Ivpjyeka10 mL/minLow>60[facility] Mi[facility]burgShiftgig Phone: Glucose [Mass/Vol]143 mg/xHOfgw20 - 99 mg/dLKettering Health MiamisburgShiftgig Phone: Interpretation and review of laboratory results AbnormalKettering Health MiamisburgPlaid Work Phone: potassium [Moles/Vol]3.9 mmol/L3.7 - 5.3 mmol/LMgood samaritan hospital [employer] Work Phone: sodium [Moles/Vol]136 mmol/L135 - 144 mmol/LMuniversity hospitals cleveland medical centery [employer] Work Phone: Urea nitrogen (BldV) [Mass/Vol]16 mg/dL8 - 23 mg/dL [facility] HealthCircassia Phone: Urea nitrogen/Creatinine (Bld) [Mass ratio]15[facility] MiamisburgShiftgig Phone: [facility]burgShiftgig Phone: laboratory - Chemistry and Chemistry - challenge Ordered By: Marita Munoz on 87-89-0001YHH/1.73 sq M.predicted MDRD (S/P/Bld) [Vol rate/Area][facility] HealthCircassia Phone: comment on above:Average GFR for 60-69 years old: 85 mL/min/1.73sq m Chronic Kidney Disease: <60 mL/min/1.73sq m Kidney failure: <15 mL/min/1.73sq m eGFR calculated using average adult body mass. Additional eGFR calculator available at: http://www.[employer]le/multiple_crcl_2012.htm Stage 1: Some kidney damage normal GFR Stage 2: Mild kidney damage GFR 60-89 Stage 3: Moderate kidney damage GFR 30-59 Stage 4: Severe kidney damage GFR 15-29 Stage 5: Severe kidney damage GFR <15 ESRD - chronic treatment by dialysis or transplant Lactic acid, plasmaOrdered By: Marita Munoz on 58-13-4754Ajhjxbz [Moles/Vol]1 mmol/L0.5 - 2.2 mmol/LMuniversity hospitals cleveland medical centery [employer] Work Phone: lactic Acid, Whole BloodNOT REPORTED0.7 - 2.1 mmol/L [facility]Circ[facility]ia Phone: [facility]burgShiftgig Phone: lipaseOrdered By: Marita Munoz on 86-64-5952Anfxbe [Catalytic activity/Vol]37 U/L13 - 60 U/LMercy [employer] Work Phone: [facility] MiamisburgPlaid Work Phone: basic Metabolic Panel w/ Reflex to MGOrdered By: Albert Ibrahim on 63-80-1434Qfrnc gap [Moles/Vol]11 mmol/L9 - 17 mmol/LMuniversity hospitals cleveland medical centery [employer] Work Phone: calcium [Mass/Vol]8.9 mg/dL8.6 - 10.4 mg/dLKettering Health MiamisburgShiftgig Phone: chloride [Moles/Vol]104 mmol/L98 - 107 mmol/LMuniversity hospitals cleveland medical centery [employer] Work Phone: cO2 [Moles/Vol]24 mmol/L20 - 31 mmol/LMuniversity hospitals cleveland medical centery [employer] Work Phone: creatinine [Mass/Vol]0.87 mg/dL0.50 - 0.90 mg/dLAshtabula County Medical Center [employer] Phone: GFR >60>60 mL/minKettering Health MiamisburgShiftgig Phone: GFR Non->60>60 mL/minKettering Health MiamisburgShiftgig Phone: Glucose [Mass/Vol]94 mg/dL70 - 99 mg/dLAshtabula County Medical Center [employer] Phone: potassium [Moles/Vol]4.6 mmol/L3.7 - 5.3 mmol/LMuniversity hospitals cleveland medical centery [employer] Work Phone: sodium [Moles/Vol]139 mmol/L135 - 144 mmol/LMuniversity hospitals cleveland medical centery [employer] Work Phone: Urea nitrogen (BldV) [Mass/Vol]9 mg/dL8 - 23 mg/dL [facility] [employer] Phone: Urea nitrogen/Creatinine (Bld) [Mass ratio]10[facility]amisburgShiftgig Phone: cBC Auto DifferentialOrdered By: Albert Ibrahim on 43-58-6500Wgelcwrl Eos #0.23[facility]burgShiftgig Phone: absolute Immature Granulocyte<0.03[facility] [employer] Phone: absolute Lymph #1.24[facility]burgShiftgig Phone: absolute Denali #0.56[facility] [employer] Phone: basophils (Bld) [#/Vol]0.10 10*3/uLKettering Health MiamisburgShiftgig Phone: basophils/100 WBC (Bld)1 %0 - 2 %[employer] Phone: differential TypeNOT REPORTEDMerShiftgig Phone: eosinophils/100 WBC (Bld)3 %1 - 4 %[employer] Phone: Hematocrit (Bld) [Volume fraction]42.7 %36.3 - 47.1 % [facility]Circ[facility] Phone: Hemoglobin.gastrointestinal spec 1 Ql (Stl)13.7 g/dL 11.9 - 15.1 g/dLKettering Health MiamisburgShiftgig Phone: Immature granulocytes/100 WBC (Bld)0 %0[facility] Mi[facility]burgShiftgig Phone: Interpretation and review of laboratory results AbnormalKettering Health MiamisburgShiftgig Phone: lymphocytes/100 WBC (Bld)16 %Low24 - 43 %[employer] Phone: MCH (RBC) [Entitic mass]29.7 pg25.2 - 33.5 pgKettering Health MiamisburgShiftgig Phone: MCHC (RBC) [Mass/Vol]32.1 g/dL28.4 - 34.8 g/dLKettering Health MiamisburgShiftgig Phone: MCV (RBC) [Entitic vol]92.4 fL82.6 - 102.9 fLKettering Health MiamisburgShiftgig Phone: Monocytes/100 WBC (Bld)7 %3 - 12 %[employer] Phone: [phone] Automated0.00.0 per 100 WBCStimulus Technologies Phone: [phone] distribution width (Bld) [Ratio]16.6 %High 11.8 - 14.4 %[employer] Phone: [phone] EstimateNOT REPORTEDStimulus Technologies Phone: [phone] mean volume (Bld) [Entitic vol]8.9 fL8.1 - 13.5 fLSt[employer]ulus Technologies Phone: Platelets (Bld) [#/Vol]270 10*3/uLSt[employer] Phone: RBC (Bld) [#/Vol]4.62 10*6/uL3.95 - 5.11 m/uLSt[employer] Technologies Phone: RBC (Bld) [#/Vol]NOT REPORTEDSt[employer]ulus Technologies Phone: Segmented neutrophils/100 WBC (Bld)73 %High36 - 65 % [employer] Phone: [phone] Absolute5.72[employer] Phone: WBC (Bld) [#/Vol]7.9 10*3/[employer] Phone: WBC (Bld) [#/Vol]NOT REPORTEDSt[employer]ulus Technologies Phone: [phone] MiamisburgShiftgig Phone: CT Head WO ContrastOrdered By: Albert Ibrahim on 56-01-3277Mm acute intracranial abnormality. Areas of minimally decreased attenuation density in the deep white matter and periventricular regions compatible with old micro ischemic changes.[employer] Phone: eXAMINATION: CT OF THE HEAD WITHOUT [...] in vessels at the base of the brain.[employer] Work Phone: e, [facility] Incoming Radiant Results From Nel[employer] - 01/12/2021 1:32 PM EDT EXAMINATION: CT [...] regions compatible with old micro ischemic changes. [employer] Phone: [employer] Phone: laboratory - Chemistry and Chemistry - challenge Ordered By: Albert Ibrahim on 89-72-9588RQI/1.73 sq M.predicted MDRD (S/P/Bld) [Vol rate/Area][employer] Phone: comment on above:Average GFR for 60-69 years old: 85 mL/min/1.73sq m Chronic Kidney Disease: <60 mL/min/1.73sq m Kidney failure: <15 mL/min/1.73sq m eGFR calculated using average adult body mass. Additional eGFR calculator available at: http://www.Sc[employer]oodle/multiple_crcl_2012.htm Stage 1: Some kidney damage normal GFR Stage 2: Mild kidney damage GFR 60-89 Stage 3: Moderate kidney damage GFR 30-59 Stage 4: Severe kidney damage GFR 15-29 Stage 5: Severe kidney damage GFR <15 ESRD - chronic treatment by dialysis or transplant MagnesiumOrdered By: Albert Ibrahim on 87-28-0296Ecaixtzpx [Mass/Vol]1.9 mg/dL1.6 - 2.6 mg/dLStimulus Technologies Phone: no Panel InformationOrdered By: Albert Ibrahim on 10-56-8186YpweyStimulus Technologies Phone: no acute findings.[employer] Phone: eXAMINATION: XRAY VIEWS OF THE RIGHT TIBIA AND FIBULA; THREE XRAY VIEWS OF THE RIGHT KNEE 01/12/2021 12:52 pm COMPARISON: None. HISTORY: ORDERING SYSTEM PROVIDED HISTORY: pain TECHNOLOGIST PROVIDED HISTORY: pain FINDINGS: Alignment anatomic. No acute fracture. There is generalized osteopenia. Mild tricompartmental degenerative change right knee. No significant joint effusion. There is atherosclerosis throughout the soft tissues.[employer] Phone: edi, Mhpn Incoming Radiant Results From [employer]anz - 01/12/2021 1:05 PM EDT EXAMINATION: XRAY [...] the soft tissues. IMPRESSION: No acute findings. [employer] Phone: [facility]Shiftgig Phone: TroponinOrdered By: Albert Ibrahim on 95-31-5277Sgueejfo InterpNOT REPORTEDKettering Health MiamisburgShiftgig Phone: Troponin TNOT REPORTED<0.03 ng/mLKettering Health MiamisburgShiftgig Phone: Troponin, High Okroclylqvf58 ng/L0 - 14 ng/LMgood samaritan hospital [employer] Phone: comment on above: High Sensitivity Troponin values cannot be compared with other Troponin methodologies. Patients with high levels of Biotin oral intake (i.e >5mg/day) may have falsely decreased Troponin levels. Samples collected within 8 hours of biotin intake may require additional information for diagnosis. [employer] Phone: XR CHEST PORTABLEOrdered By: Albert Ibrahim on 82-13-9489Srsgrbprnodgqs suggesting COPD. No acute findings.[employer] Phone: eXAMINATION: ONE XRAY VIEW OF THE CHEST 01/12/2021 12:49 pm COMPARISON: December 28, 2020 HISTORY:ORDERING SYSTEM PROVIDED HISTORY: dizziness TECHNOLOGIST PROVIDED HISTORY: dizziness FINDINGS: Lungs are hyperinflated suggesting COPD. No focal consolidation, pneumothorax or pleural effusion. Cardiac and mediastinal silhouettes unremarkable. Osseous structures grossly intact.[employer] Phone: edi, Mhpn Incoming Radiant Results From [employer] - 01/12/2021 1:03 PM EDT EXAMINATION: ONE XRAY VIEW OF THE CHEST 01/12/2021 12:49 pm COMPARISON: December 28, 2020 HISTORY: ORDERING SYSTEM PROVIDED HISTORY: dizziness TECHNOLOGIST PROVIDED HISTORY: dizziness FINDINGS: Lungs are hyperinflated suggesting COPD. No focal consolidation, pneumothorax or pleural effusion. Cardiac and mediastinal silhouettes unremarkable. Osseous structures grossly intact. IMPRESSION: Hyperinflation suggesting COPD. No acute findings. [employer] Phone: [facility]Shiftgig Phone: XR PELVIS (1-2 VIEWS)Ordered By: Albert Ibrahim on 72-28-4790Dd acute findings.[employer] Phone: eXAMINATION: ONE XRAY VIEW OF THE PELVIS 01/12/2021 12:50 pm COMPARISON: March 21, 2020 HISTORY:ORDERING SYSTEM PROVIDED HISTORY: fall TECHNOLOGIST PROVIDED HISTORY: fall FINDINGS: AP image of the pelvis obtained. No displaced fractures. Alignment anatomic on this single view. Advanced right hip degenerative change. SI joints symmetric and patent. Surgical clips both inguinal regions.[employer] Phone: edi, Mhpn Incoming Radiant Results From [employer] - 01/12/2021 1:28 PM EDT EXAMINATION: ONE [...] both inguinal regions. IMPRESSION: No acute findings. [employer] Phone: [facility]burgShiftgig Phone: XR THORACIC SPINE (2 VIEWS)Ordered By: Albert Ibrahim on 63-08-6126Pj acute findings.[employer] Phone: eXAMINATION: XRAY VIEWS OF THE THORACIC SPINE 01/12/2021 12:51 pm COMPARISON: February 11, 2012 HISTORY: ORDERING SYSTEM PROVIDED HISTORY: pain TECHNOLOGIST PROVIDED HISTORY: pain FINDINGS: Thoracic s pine alignment is anatomic. There is generalized osteopenia. No acute fracture. Vertebral body axial heights maintained. Mild endplate spondylosis throughout. There is calcification of the aorta.[employer] Phone: edi, Mhpn Incoming Radiant Results From [employer] - 01/12/2021 1:27 PM EDT EXAMINATION: XRAY VIEWS OF THE THORACIC SPINE 01/12/2021 12:51 pm COMPARISON: February 11, 2012 HISTORY: ORDERING SYSTEM PROVIDED HISTORY: pain TECHNOLOGIST PROVIDED HISTORY: pain FINDINGS: Thoracic spine alignment is anatomic. There is generalized osteopenia. No acute fracture. Vertebral body axial heights maintained. Mild endplate spondylosis throughout. There is calcification of the aorta. IMPRESSION: No acute findings. [employer] Phone: [employer] Phone: cBC auto differentialOrdered By: Mukesh Marley on 86-77-0354Vvkuzouq Eos #0.30[employer] Phone: absolute Immature Granulocyte0.03[employer] Phone: absolute Lymph #1.39[facility]burgShiftgig Phone: absolute Denali #0.58[facility]Shiftgig Phone: basophils (Bld) [#/Vol]0.06 10*3/uLSt[employer] Phone: basophils/100 WBC (Bld)1 %0 - 2 %[employer] Phone: differential TypeNOT REPORTEDStimulus Technologies Phone: eosinophils/100 WBC (Bld)3 %1 - 4 %[employer] Phone: Hematocrit (Bld) [Volume fraction]41.3 %36.3 - 47.1 % [employer] Phone: Hemoglobin.gastrointestinal spec 1 Ql (Stl)13.5 g/dL 11.9 - 15.1 g/dLKettering Health MiamisburgShiftgig Phone: Immature granulocytes/100 WBC (Bld)0 %0[facility]burgShiftgig Phone: Interpretation and review of laboratory results AbnormalK[facility]tering Health MiamisburgShiftgig Phone: lymphocytes/100 WBC (Bld)16 %Low24 - 43 %[employer] Phone: MCH (RBC) [Entitic mass]29.3 pg25.2 - 33.5 pgKettering Health MiamisburgShiftgig Phone: MCHC (RBC) [Mass/Vol]32.7 g/dL28.4 - 34.8 g/dLKettering Health MiamisburgShiftgig Phone: MCV (RBC) [Entitic vol]89.6 fL82.6 - 102.9 fLKettering Health MiamisburgShiftgig Phone: Monocytes/100 WBC (Bld)7 %3 - 12 %[employer] Phone: NRBC Automated0.00.0 per 100 WBCKettering Health MiamisburgShiftgig Phone: platelet distribution width (Bld) [Ratio]17.8 %High 11.8 - 14.4 %[employer] Phone: platelet EstimateNOT REPORTEDKettering Health MiamisburgShiftgig Phone: Mlatelet mean volume (Bld) [Entitic vol]9.3 fL8.1 - 13.5 fLKettering Health MiamisburgShiftgig Phone: platelets (Bld) [#/Vol]256 10*3/uLKettering Health MiamisburgShiftgig Phone: RBC (Bld) [#/Vol]4.61 10*6/uL3.95 - 5.11 m/uLSt[employer] Phone: rBC (Bld) [#/Vol]NOT REPORTEDSt[employer]ulus Technologies Phone: segmented neutrophils/100 WBC (Bld)73 %High36 - 65 % [employer] Phone: segs Absolute6.44[employer] Phone: WBC (Bld) [#/Vol]8.8 10*3/uLSt[employer] Phone: WBC (Bld) [#/Vol]NOT REPORTEDSt[employer]ulus Technologies Phone: [employer] Phone: cT ABDOMEN PELVIS W IV CONTRAST Additional Contrast? NoneOrdered By: Mukesh Marley on 06-17-5516Jkpsd is no acute finding on this contrast-enhanced [...] to an underlying severe right renal artery stenosis.[employer] Phone: eXAMINATION: CT OF THE ABDOMEN AND [...] to be chronically occluded as are the sitka iliac arteries. A left lower extremity arterial [...] small and large bowel is unchanged from prior.[employer] Phone: e, [facility] Incoming Radiant Results From [employer]el[employer] - 12/04/2020 6:01 PM EDT EXAMINATION: CT [...] 23, 2019. HISTORY: ORDERING SYSTEM PROVIDED HISTORY: [facility] pain TECHNOLOGIST PROVIDED HISTORY: [facility] pain Decision Support Exception - unselect [...] to be chronically occluded as are the sitka iliac arteries. A left lower extremity arterial [...] an underlying severe right renal artery stenosis. [employer] Phone: [employer] Phone: comprehensive Metabolic PanelOrdered By: Mukesh Marley on 92-27-0780Lsukzaw [Mass/Vol]4 g/dL3.5 - 5.2 g/dLSt[employer] Phone: albumin/Globulin [Mass ratio]1.4 {ratio}[employer] Phone: aLP (Bld) [Catalytic activity/Vol]84 U/L35 - 104 U/L [employer] Phone: aLT [Catalytic activity/Vol]8 U/L5 - 33 U/LMSolutionary Phone: anion gap [Moles/Vol]12 mmol/L9 - 17 mmol/LMuniversity hospitals cleveland medical centery [employer] Work Phone: aST [Catalytic activity/Vol]10 U/L<32[facility] [employer] Phone: bilirubin [Mass/Vol]mg/dLLow0.3 - 1.2 mg/dLAshtabula County Medical Center [employer] Phone: calcium [Mass/Vol]9.6 mg/dL8.6 - 10.4 mg/dLAshtabula County Medical Center [employer] Phone: chloride [Moles/Vol]108 mmol/LHigh98 - 107 mmol/LMgood samaritan hospital [employer] Work Phone: cO2 [Moles/Vol]21 mmol/L20 - 31 mmol/LMgood samaritan hospital [employer] Work Phone: creatinine [Mass/Vol]0.92 mg/dLHigh0.50 - 0.90 mg/dL [facility] [employer] Phone: Free PSA/Total PSA [Mass fraction]6.9 g/dL6.4 - 8.3 g/dLAshtabula County Medical Center [employer] Phone: GFR >60>60 mL/minAshtabula County Medical Center [employer] Phone: GFR Non->60>60 mL/minAshtabula County Medical Center [employer] Work Phone: Glucose [Mass/Vol]105 mg/iJCpee71 - 99 mg/dLAshtabula County Medical Center [employer] Phone: Interpretation and review of laboratory results AbnormalAshtabula County Medical Center [employer] Phone: potassium [Moles/Vol]4.2 mmol/L3.7 - 5.3 mmol/LMuniversity hospitals cleveland medical centery [employer] Work Phone: sodium [Moles/Vol]141 mmol/L135 - 144 mmol/LMuniversity hospitals cleveland medical centery [employer] Work Phone: Urea nitrogen (BldV) [Mass/Vol]18 mg/dL8 - 23 mg/dL [employer] Phone: Urea nitrogen/Creatinine (Bld) [Mass ratio]20[facility]burg[facility] Work Phone: [facility] Work Phone: laboratory - Chemistry and Chemistry - challenge Ordered By: Mukesh Marley on 01-04-9961PDB/1.73 sq M.predicted MDRD (S/P/Bld) [Vol rate/Area][employer] Phone: comment on above:Average GFR for 60-69 years old: 85 mL/min/1.73sq m Chronic Kidney Disease: <60 mL/min/1.73sq m Kidney failure: <15 mL/min/1.73sq m eGFR calculated using average adult body mass. Additional eGFR calculator available at: http://www.Scoot & Doodle/multiple_crcl_2012.htm Stage 1: Some kidney damage normal GFR Stage 2: Mild kidney damage GFR 60-89 Stage 3: Moderate kidney damage GFR 30-59 Stage 4: Severe kidney damage GFR 15-29 Stage 5: Severe kidney damage GFR <15 ESRD - chronic treatment by dialysis or transplant Microscopic UrinalysisOrdered By: Mukesh Marley on 12-04-2020-[employer] Phone: amorphous, UANOT REPORTEDNoneMeThe [employer] Work Phone: bacteria, UA3+AbnormalNonUniversity Hospitals Beachwood Medical CenterThe Halo Group Work Phone: casts UANOT REPORTED/LPFMercy [employer] Work Phone: crystals, UANOT REPORTEDNone /HPFMerPlaid Work Phone: epithelial Cells UA0 TO 2Mgood samaritan hospital [employer] Work Phone: Interpretation and review of laboratory results AbnormalKettering Health MiamisburgPlaid Work Phone: Mucus, UANOT REPORTEDNoneMemarietta osteopathic clinic [employer] Work Phone: Other Observations UANOT REPORTEDNOT REQ.[employer] Work Phone: rBC, UANoneMercy Health Work Phone: renal Epithelial, UANOT REPORTED0 /HPFMercy Health Work Phone: Trichomonas, UANOT REPORTEDNoneMercy Health Work Phone: WBC, UA0 TO 2[facility] Work Phone: Yeast, UANOT REPORTEDNoneMercy Health Work Phone: [facility] Work Phone: Urinalysis Reflex to CultureOrdered By: Mukesh Marley on [id number] UrineNegativeNEGATIVEMercy Health Work Phone: color, UAYELLOWYELLOWMercy Health Work Phone: Glucose, UrNegativeNEGATIVEMercy Health Work Phone: Interpretation and review of laboratory results AbnormalMercy Health Work Phone: Ketones Ql (U)NegativeNEGATIVEMercy Health Work Phone: leukocyte esterase Test strip Ql (U)NegativeNEGATIVE [facility] Work Phone: Nitrite, UrinePositiveAbnormalNEGATIVEMercy Health Work Phone: pH, UA6.5[facility] Work Phone: protein, UANegativeNEGATIVEMercy Health Work Phone: specific [place], UA1.015[facility] Work Phone: Turbidity UACLEARCLEARMercy Health Work Phone: Urinalysis CommentsNOT REPORTEDMercy Health Work Phone: Urine HgbNegativeNEGATIVEMercy Health Work Phone: Urobilinogen, UrineNormalNormalMercy Health Work Phone: [facility] [employer] Work Phone: Otheron [id number] convincing evidence for acute fracture or malalignment of the thoracolumbar spine. Multilevel degenerative disc disease of the thoracolumbar spine. Disc extrusion with superior migration of the L2-L3 disc. Multiple additional chronic findings as described above.[facility] HospitalCARLOSEXAMINATION: CT OF THE THORACIC SPINE WITHOUT [...] migration of the L2-L3 disc resulting in sqij-ly-bxgdiusm central canal narrowing. SOFT TISSUES: There is subtle reticulonodular opacities and ground- glass opacities within the visualized lung parenchyma. No pleural effusion or pneumothorax. Bilateral adrenal adenomas. Status post aortoiliac bypass grafting.[facility] Cross HospitalAudelia Mhpn Incoming Radiant Results From [employer] - 04/05/2020 2:59 PM EST EXAMINATION: CT [...] migration of the L2-L3 disc resulting in txnn-fx-oloxujzr central canal narrowing. SOFT TISSUES: There is [...] Multiple additional chronic findings as described above. [facility] HealthThe Halo GroupMount Graham [facility] 32-24-9378tPHQ Coag (Bld) [Time]24.3 [facility] on above: IV Heparin Therapy Range: 62.0-94.0 Brain Natriuretic Peptideon 95-18-1731Awayncdijjm peptide B (Bld) [Mass/Vol]Pro- BNP Reference Range:SennariMcLaren Flint on above: Rule Out: <300 Monahan Zone: Age <50 300-450 Age 50-75 300-900 Age >75 300-1800 Usually represents mild to moderate HF but other cardiopulmonary causes cannot be ruled out. Rule In: Age <50 >450 Age 50-75 >900 Age >75 >1800 Natriuretic peptide B (Bld) [Mass/Vol]283 pg/mL<300[facility]- [place], KYComment on above:Pro-BNP results cannot be compared to BNP results.CBC Auto Differential on 24-58-9343Keriefnwh (Bld) [#/Vol]0.10 10*3/[facility], [place] Basophils/100 WBC (Bld)1 %0 - 2 %[facility], CADifferential TypeNOT REPORTEDGreen Cross Hospital, CARLOSEosinophils (Bld) [#/Vol]0.82 10*3/uLAvita Health System [facility], KYEosinophils/100 WBC (Bld)5 %High1 - 4 %[facility], [place] Erythrocyte distribution width (RBC) [Ratio]15.0 %High11.8 - 14.4 %[facility], CAHematocrit (Bld) [Volume fraction]42.5 %36.3 - 47.1 %[facility], [place] Hemoglobin (Bld) [Mass/Vol]13.6 g/dL11.9 - 15.1 g/dLGreen Cross Hospital, CAImmature granulocytes (Bld) [#/Vol]1 %Urjr1ZfrqjGreen Cross Hospital, CAImmature granulocytes (Bld) [#/Vol]0.08 10*3/[facility], CAInterpretation and review of laboratory resultsAbnormalGreen Cross Hospital, CALymphocytes (Bld) [#/Vol]2.06 10*3/[facility], KYLymphocytes/100 WBC (Bld)12 %Low24 - 43 %[facility], CAMCH (RBC) [Entitic mass]28.6 pg25.2 - 33.5 pgGreen Cross Hospital, [place] MCHC (RBC) [Mass/Vol]32.0 g/dL28.4 - 34.8 g/dLGreen Cross Hospital, CAMCV (RBC) [Entitic vol]89.5 fL82.6 - 102.9 fLGreen Cross Hospital, CAMonocytes (Bld) [#/Vol] 0.75 10*3/[facility], KYMonocytes/100 WBC (Bld)4 %3 - 12 %[facility]- [place], KYPlatelet mean volume (Bld) [Entitic vol]9.8 fL8.1 - 13.5 fLMercy Health- [place], KYPlatelets (Bld) [#/Vol]NOT REPORTEDMercy Health- [place], KYPlatelets (Bld) [#/Vol]224 10*3/uLMercy Health- [place], KYRBC (Bld) [#/Vol]4.75 10*6/uL3.95 - 5.11 m/uLMercy Health- [place], KYRBC morphology finding Nom (Bld)NOT REPORTEDKettering Health Miamisburgcy Health- [place], KYSegmented neutrophils/100 WBC (Bld)78 %High36 - 65 %[facility]- [place], KYSegs Dhtvhoml93.60HighMercy Health- [place], KYWBC (Bld) [#/Vol]17.4 10*3/uL HighMer Health- [place], KYWBC (Bld) [#/Vol]0.0 10*3/uL0.0 per 100 WBCKettering Health Miamisburgcy Health- [place], KYWBC MorphologyNOT REPORTEDMer Health- [place], KYComprehensive Metabolic Panel w/ Reflex to MGon 33-17-0108Esdqpbl [Mass/Vol]4 g/dL3.5 - 5.2 g/dLKettering Health Miamisburgcy Health- [place], KYAlbumin/Globulin [Mass ratio]1.5 {ratio}[facility]- [place], KYALP [Catalytic activity/Vol]74 U/L35 - 104 U/LMuniversity hospitals cleveland medical centery Health- [place], KYALT [Catalytic activity/Vol]8 U/L5 - 33 U/LMercy Health- [place], KYAnion gap [Moles/Vol]9 mmol/L9 - 17 mmol/LMercy Health- [place], KYAST [Catalytic activity/Vol]11 U/L<32[facility]- [place], KYBilirubin Ql (U)0.24 mg/dLLow0.3 - 1.2 mg/dLMercy Health- [place], KYBun/Cre Oqkxb27Assju Health- [place], KYCalcium [Mass/Vol]8.9 mg/dL8.6 - 10.4 mg/dLKettering Health Miamisburgcy Health- [place], KYChloride [Moles/Vol]99 mmol/L98 - 107 mmol/LMercy Health- [place], [place] CO2 [Moles/Vol]28 mmol/L20 - 31 mmol/LMMemorial Hospital, KYCreatinine [Mass/Vol] 1.27 mg/dLHigh0.5 - 0.9 mg/dLGreen Cross Hospital, KYGFR Nypuoiwo22 mL/min Low>60[facility], KYGFR Non- Wubuvjck98 mL/minLow>60[facility], KYGlucose [Mass/Vol]127 mg/gPDpvb19 - 99 mg/dLGreen Cross Hospital, KYPotassium [Moles/Vol]4.0 mmol/L3.7 - 5.3 mmol/LMMemorial Hospital, KYProtein [Mass/Vol]6.7 g/dL6.4 - 8.3 g/dLGreen Cross Hospital, KYSodium [Moles/Vol]136 mmol/L135 - 144 mmol/LMMemorial Hospital, KYUrea nitrogen [Mass/Vol]25 mg/dLHigh8 - 23 mg/dLGreen Cross Hospital, KYMetabolic Panelon 58-58-1886TPK/1.73 sq M predicted among non- blacks MDRD (S/P/Bld) [Vol rate/Area][place], KYComment on above: Average GFR for 60-69 years old: 85 mL/min/1.73sq m Chronic Kidney Disease: <60 mL/min/1.73sq m Kidney failure: <15 mL/min/1.73sq m eGFR calculated using average adult body mass. Additional eGFR calculator available at: http://www.Banyan.[employer]/multiple_crcl_2011.htm Stage 1: Some kidney damage normal GFR Stage 2: Mild kidney damage GFR 60-89 Stage 3: Moderate kidney damage GFR 30-59 Stage 4: Severe kidney damage GFR 15-29 Stage 5: Severe kidney damage GFR <15 ESRD - chronic treatment by dialysis or transplant Otheron 74-08-9827Fifgdzrewejaci and review of laboratory resultsAbnormalWatersmeet, KYProtime-INRon 72-60-7302ZBZ Coag (PPP) [Relative time]0.9 {INR} [place], KYComment on above: Non-therapeutic Range: INR = 0.9-1.2 Therapeutic Range: Moderate Anticoagulant Intensity: INR = 2.0-3.0 High Anticoagulant Intensity: INR = 2.5-3.5 PT Coag (PPP) [Time]12.1 sMMemorial Hospital, CARLOSSedimentation Rateon 39-47-3151Djd Rate8 mm0 - 20 mmGreen Cross Hospital, CARLOSTroponinon 85-65-5848Zagpexmjxipsip and review of laboratory resultsAbnormalGreen Cross Hospital, Citlalyoponin I.cardiac [Mass/Vol]NOT REPORTEDGreen Cross Hospital, Citlalyoponin T.cardiac [Mass/Vol]NOT REPORTED<0.03 ng/mLGreen Cross Hospital, Citlalyoponin, High Nyhwxdhexax46 ng/LHigh0 - 14 ng/LMMemorial Hospital, CARLOSComment on above: High Sensitivity Troponin values cannot be compared with other Troponin methodologies. Patients with high levels of Biotin oral intake (i.e >5mg/day) may have falsely decreased Troponin levels. Samples collected within 8 hours of biotin intake may require additional information for diagnosis. Troponin I.cardiac [Mass/Vol]NOT REPORTEDGreen Cross Hospital, Adriananin T.cardiac [Mass/Vol]NOT REPORTED<0.03 ng/mLGreen Cross Hospital, Citlalyoponin, High Sensitivity 18 ng/LHigh0 - 14 ng/LMMemorial Hospital, CARLOSComment on above: High Sensitivity Troponin values cannot be compared with other Troponin methodologies. Patients with high levels of Biotin oral intake (i.e >5mg/day) may have falsely decreased Troponin levels. Samples collected within 8 hours of biotin intake may require additional information for diagnosis. XR CHEST (2 VW)on 00-55-0973Jj focal consolidation. Mild increased interstitial opacities which are unchanged and could be related to an atypical infection versus chronic changes.[facility], [place], [place]idget[place] Incoming Radiant Results From [employer] - 03/21/2020 3:01 PM EST EXAMINATION: 2 [...] to an atypical infection versus chronic changes. InfoRemate, KYEXAMINATION: 2 XRAY VIEWS OF THE CHEST 03/21/2020 2:29 pm COMPARISON: 03/17/2020 HISTORY: ORDERING SYSTEM PROVIDED HISTORY: palpitations TECHNOLOGIST PROVIDED HISTORY: Palpitations FINDINGS: No focalconsolidation. Cardiomegaly. Mild prominence of the main pulmonary artery which can be seen with pulmonary hypertension. No pulmonary edema. Mild interstitial prominence is unchanged.[facility]ariHANNIBAL REGION[facility], KYXR HIP LEFT (2-3 VIEWS)on 33-61-0669Yda, [facility] Incoming Radiant Results From [employer]el[employer] - 03/21/2020 2:51 PM EST EXAMINATION: TWO [...] upper thigh. IMPRESSION: No acute osseous abnormality. [facility]! [place], KYEXAMINATION: TWO XRAY VIEWS OF THE LEFT [...] vascular surgery noted in the left upper thigh.[employer] [place], [place]No acute osseous abnormality.[facility] ZextitHANNIBAL REG[facility], KYCBCon 66-63-2964Hiitdmzmpyz distribution width (RBC) [Ratio]14.9 %High11.8 - 14.4 % [facility] [employer] [place], KYHematocrit (Bld) [Volume fraction]44.4 %36.3 - 47.1 %[facility] ZextitHANNIBAL REGIONAL [facility], KYHemoglobin (Bld) [Mass/Vol]14.0 g/dL11.9 - 15.1 g/dLMerShriners Hospital for Children- [place], KYInterpretation and review of laboratory resultsAbnormalPomerene Hospital- [place], KYMCH (RBC) [Entitic mass]27.3 pg25.2 - 33.5 pgPomerene Hospital- [place], KYMCHC (RBC) [Mass/Vol]31.5 g/dL28.4 - 34.8 g/dLPomerene Hospital- [place], KYMCV (RBC) [Entitic vol] 86.5 fL82.6 - 102.9 fLPomerene Hospital- [place], KYPlatelet mean volume (Bld) [Entitic vol]9.6 fL8.1 - 13.5 fLPomerene Hospital- [place], KYPlatelets (Bld) [#/Vol]219 10*3/uL [facility]- [place], KYRBC (Bld) [#/Vol]5.13 10*6/uLHigh3.95 - 5.11 m/uLPomerene Hospital- [place], KYWBC (Bld) [#/Vol]0.0 10*3/uL0.0 per 100 WBCPomerene Hospital- [place], KYWBC (Bld) [#/Vol]14.4 10*3/uLHighPomerene Hospital- [place], KYComprehensive Metabolic Panel w/ Reflex to MGon 98-40-2120Vihphmy [Mass/Vol]3.5 g/dL3.5 - 5.2 g/dLPomerene Hospital- [place], KYAlbumin/Globulin [Mass ratio]1.4 {ratio}[facility]- [place], KYALP [Catalytic activity/Vol]72 U/L35 - 104 U/LMKettering Health Springfield- [place], KYALT [Catalytic activity/Vol]7 U/L5 - 33 U/LMgood [facility]aritan [facility] Health- [place], KYAnion gap [Moles/Vol]10 mmol/L9 - 17 mmol/LMgood samaritan hospital Health- [place], KYAST [Catalytic activity/Vol]11 U/L<32[facility]- [place], KYBilirubin Ql (U)0.19 mg/dLLow0.3 - 1.2 mg/dLPomerene Hospital- [place], [place] Bun/Cre RatioNOT REPORTEDPomerene Hospital- [place], KYCalcium [Mass/Vol]8.6 mg/dL8.6 - 10.4 mg/dLPomerene Hospital- [place], KYChloride [Moles/Vol]103 mmol/L98 - 107 mmol/[facility], KYCO2 [Moles/Vol]24 mmol/L20 - 31 mmol/[facility], [place] Creatinine [Mass/Vol]1.04 mg/dLHigh0.5 - 0.9 mg/dLGreen Cross Hospital, KYGFR >60>60 mL/minGreen Cross Hospital, KYGFR Non- Zvlqhegn92 mL/minLow>60[facility], KYGFR/1.73 sq M predicted among non-blacks MDRD (S/P/Bld) [Vol rate/Area]NOT REPORTEDGreen Cross Hospital, KYGFR/1.73 sq M predicted among non-blacks MDRD (S/P/Bld) [Vol rate/Area][facility], KYComment on above:Average GFR for 60-69 years old: 85 mL/min/1.73sq m Chronic Kidney Disease: <60 mL/min/1.73sq m Kidney failure: <15 mL/min/1.73sq m eGFR calculated using average adult body mass. Additional eGFR calculator available at: http://www.Scoot [employer] Doodle/multiple_crcl_2012.htm Glucose [Mass/Vol]101 mg/cZQhwu04 - 99 mg/dLGreen Cross Hospital, KYInterpretation and review of laboratory resultsAbnoMiami Valley Hospital, KYPotassium [Moles/Vol]4.3 mmol/L3.7 - 5.3 mmol/[facility], KYProtein [Mass/Vol]6.0 g/dLLow6.4 - 8.3 g/dLGreen Cross Hospital, KYSodium [Moles/Vol]137 mmol/L135 - 144 mmol/[facility], KYUrea nitrogen [Mass/Vol]20 mg/dL8 - 23 mg/dLGreen Cross Hospital, KYPOC Glucose Fingerstickon 87-61-6717Dcwvbwh [Mass/Vol]102 mg/dL65 - 105 mg/dLGreen Cross Hospital, KYGlucose [Mass/Vol]107 mg/gODmot64 - 105 mg/dL [facility], KYInterpretation and review of laboratory resultsAbnoMiami Valley Hospital, KYBasi Metabolic Panel w/ Reflex to MGon 58-35-7831Sazxg gap [Moles/Vol]12 mmol/L9 - 17 mmol/LMuniversity hospitals cleveland medical centery Health- [place], KYBun/Cre Coqwj88Tcbxe Health- [place], KYCalcium [Mass/Vol]9.5 mg/dL8.6 - 10.4 mg/dLAshtabula [facility] Center Health- [place], [place] Chloride [Moles/Vol]103 mmol/L98 - 107 mmol/LMuniversity hospitals cleveland medical centery Health- [place], KYCO2 [Moles/Vol] 24 mmol/L20 - 31 mmol/LMuniversity hospitals cleveland medical centery Health- [place], KYCreatinine [Mass/Vol]1.12 mg/dLHigh 0.5 - 0.9 mg/dLPomerene Hospital- [place], KYGFR >60>60 mL/minAshtabula County Medical Center Health- [place], KYGFR Non- Ldkmiurr60 mL/minLow>60[facility]- [place], KYGlucose [Mass/Vol]95 mg/dL70 - 99 mg/dLPomerene Hospital- [place], KYInterpretation and review of laboratory resultsAbnormalPomerene Hospital- [place], KYPotassium [Moles/Vol]5.1 mmol/L 3.7 - 5.3 mmol/LMgood samaritan hospital Health- [place], KYSodium [Moles/Vol]139 mmol/L135 - 144 mmol/L [facility]- [place], KYUrea nitrogen [Mass/Vol]17 mg/dL8 - 23 mg/dLPomerene Hospital- [place], KYCBCon 50-32-8712Jkaohmuloij distribution width (RBC) [Ratio]15.1 %High11.8 - 14.4 %[facility]- [place], KYHematocrit (Bld) [Volume fraction]48.7 %High36.3 - 47.1 %[facility]- [place], KYHemoglobin (Bld) [Mass/Vol]15.3 g/qSHesx02.9 - 15.1 g/dLPomerene Hospital- [place], KYInterpretation and review of laboratory resultsAbnormal [facility]- [place], KYMCH (RBC) [Entitic mass]28.1 pg25.2 - 33.5 pgPomerene Hospital- [place], KYMCHC (RBC) [Mass/Vol]31.4 g/dL28.4 - 34.8 g/dLGreen Cross Hospital, CAMCV (RBC) [Entitic vol]89.4 fL82.6 - 102.9 fLGreen Cross Hospital, CAPlatelet mean volume (Bld) [Entitic vol]9.4 fL8.1 - 13.5 fLGreen Cross Hospital, CAPlatelets (Bld) [#/Vol]282 10*3/uLGreen Cross Hospital, KYRBC (Bld) [#/Vol]5.45 10*6/uLHigh3.95 - 5.11 m/[facility], KYWBC (Bld) [#/Vol]11.1 10*3/uLGreen Cross Hospital, [place] WBC (Bld) [#/Vol]0.0 10*3/uL0.0 per 100 WBCGreen Cross Hospital, CADiagnostic Cardiac Cost Accounting Manager Procedureon 50-27-5273Pct, Mhpn Incoming Cardio Results From [facility]/ - 03/18/2020 2:16 PM EST Cardiac Interventional Report Demographics Patient SHER Phillips Date of Study 03/18/2020 Name Date of 1960 Gender Female Age 59 year(s) Race Room [id number]^MARTINEZ^HEMINDERMEET Height: 61 inch, 154.94 Number cm Corporate [id number] Weight: 170 pounds, 77.1 ID # kg Patient [id number] BSA: 1.76 m^2 BMI: 32.12 Acct # kg/m^2 MR # [id number] Performing Ema Miller Physician Referring # Physician [...] complication Indications: - Unstable angina - Previous GA - Previous stent placement - Coronary lesion [...] I.A. 2000 units. - Heparin I.V. bolus 78451 units. - Nitroglycerin I.C. 200 mcg. - Plavix P.O. 600 mg. Contrast Material: - Optiray 23559 ml Fluoroscopy Time: Diagnostic: 5:24 minutes. Total: [...] tobacco use, previous femoral procedure and prior GA. Admission Data Admission Date: 03/18/2020 Admission Status: Outpatient -The patient's anginal syndrome was assessed as CCS III according to the Cymro clinical classification. Hemodynamics Condition: Baseline Room Air Estimated: 183.40Heart Rate: 95 bpm Pressure +-----+ + !Site !Pressure ! +-----+ + !AO !173/173 (116) ! +-----+ + !AO !170/65 (122) ! +-----+ + Shunts Oxygen Values O2 Akqyiimy869.08O2 Htxfgarytnw597.4 [facility]- [place], KYCardiac Interventional Report Demographics Patient SHER Phillips Date of Study 03/18/2020 Name Date of 1960 Gender Female Age 59 year(s) Race Room [id number]^MARTINEZ^HEMINDERMEETHeight: 61 inch, 154.94 Number cm Corporate [id number] Weight: 170 pounds, 77.1 ID # kg Patient [id number] BSA: 1.76 m^2 BMI: 32.12 Acct # kg/m^2 MR # [id number] Ema Pineda Physician Referring # Physician Assisting [...] complication Indications: - Unstable angina - Previous GA - Previous stent placement - Coronary lesion [...] Heparin I.A. 2000 units. -Heparin I.V. bolus 43685 units. - Nitroglycerin I.C. 200 mcg. - Plavix P.O. 600 mg. Contrast Material: - Optiray 58468 ml Fluoroscopy Time: Diagnostic: 5:24 minutes. Total: [...] tobacco use, previous femoral procedure and prior GA. Admission Data Admission Date: 03/18/2020 Admission Status: Outpatient -The patient's anginal syndrome was assessed as CCS III according to the Cymro clinical classification. Hemodynamics Condition: Baseline Room Air Estimated: 183.40Heart Rate: 95 bpm Pressure +-----+ + !Site !Pressure ! +-----+ + !AO !173/173 (116) ! +-----+ + !AO !170/65 (122) ! +-----+ + Shunts Oxygen Values O2 Fjebxsdw357.08O2 Nhsaqdtzudr566.4[facility] [employer] Metabolic Panelon 77-82-6323PJR/1.73 sq M predicted among non-blacks MDRD (S/P/Bld) [Vol rate/Area][facility] on above:Average GFR for 60-69 years old: 85 mL/min/1.73sq m Chronic Kidney Disease: <60 mL/min/1.73sq m Kidney failure: <15 mL/min/1.73sq m eGFR calculated using average adult body mass. Additional eGFR calculator available at: http://www.Scoot & Doodle/multiple_crcl_2012.htm Stage 1: Some kidney damage normal GFR Stage 2: Mild kidney damage GFR 60-89 Stage 3: Moderate kidney damage GFR 30-59 Stage 4: Severe kidney damage GFR 15-29 Stage 5: Severe kidney damage GFR <15 ESRD - chronic treatment by dialysis or transplant POC Glucose Fingerstickon 89-60-8023Epcnnjr [Mass/Vol]106 mg/fRZynn92 - 105 mg/dLGreen Cross Hospital, KYInterpretation and review of laboratory resultsAbnormal [place], KYGlucose [Mass/Vol]216 mg/sRNoqa69 - 105 mg/dLGreen Cross Hospital, CAInterpretation and review of laboratory resultsAbnormBrown Memorial Hospital, CATroponinon 58-29-4353Bwyuavjm I.cardiac [Mass/Vol]NOT REPORTEDWaters[place], KYTroponin T.cardiac [Mass/Vol]NOT REPORTED<0.03 ng/mLGreen Cross Hospital, [place] Troponin, High Oplinvhragb49 ng/L0 - 14 ng/LMCHI Health Mercy Corning on above: High Sensitivity Troponin values cannot be compared with other Troponin methodologies. Patients with high levels of Biotin oral intake (i.e >5mg/day) may have falsely decreased Troponin levels. Samples collected within 8 hours of biotin intake may require additional information for diagnosis. Brain Natriuretic Peptideon 31-60-4342Zvukvtmexws peptide B (Bld) [Mass/Vol]1060 pg/mLHigh<300[facility] on above:Pro-BNP results cannot be compared to BNP results.Natriuretic peptide B (Bld) [Mass/Vol]Pro-BNP Reference Range:[facility] on above: Rule Out: <300 Monahan Zone: Age <50 300-450 Age 50-75 300-900 Age >75 300-1800 Usually represents mild to moderate HF but other cardiopulmonary causes cannot be ruled out. Rule In: Age <50 >450 Age 50-75 >900 Age >75 >1800 CBCon 28-92-0755Zcxedlkfptc distribution width (RBC) [Ratio]14.8 %High11.8 - 14.4 %[facility], CAHematocrit (Bld) [Volume fraction]43.9 %36.3 - 47.1 % [facility], CAHemoglobin (Bld) [Mass/Vol]13.9 g/dL11.9 - 15.1 g/dLGreen Cross Hospital, CAInterpretation and review of laboratory resultsAbnormalGreen Cross Hospital, CAMCH (RBC) [Entitic mass]28.4 pg25.2 - 33.5 pgGreen Cross Hospital, [place] MCHC (RBC) [Mass/Vol]31.7 g/dL28.4 - 34.8 g/dLGreen Cross Hospital, CAMCV (RBC) [Entitic vol]89.8 fL82.6 - 102.9 fLGreen Cross Hospital, CAPlatelet mean volume (Bld) [Entitic vol]9.5 fL8.1 - 13.5 fLGreen Cross Hospital, CAPlatelets (Bld) [#/Vol]300 10*3/uLGreen Cross Hospital, KYRBC (Bld) [#/Vol]4.89 10*6/uL3.95 - 5.11 m/[facility], CAWBC (Bld) [#/Vol]0.0 10*3/uL0.0 per 100 WBCGreen Cross Hospital, CAWBC (Bld) [#/Vol]11.6 10*3/uLHighGreen Cross Hospital, CACardiac Catheterizationon 05-76-3641Hlvmgur Diagnostic Report Demographics Patient SHER Phillips Date of Study 03/17/2020 Name Dateof 1960 Gender Female Age 59 year(s) Race Room [id number]^SHARRI Height: 61 inch, 154.94 cm Number Corporate [id number] Weight: 178 pounds, 80.7 kg ID # Patient [id number] BSA: 1.8 m^2 BMI: 33.62 Acct # kg/m^2 MR # [id number] Performing Physician Zach Stephens Referring Physician # [...] Right coronary angiography. Contrast Material: - Isovue 48207 ml Fluoroscopy Time: Diagnostic: 2:01 minutes. Total: [...] assessed as CCS IV according to the Cymro clinical classification. Hemodynamics Condition: Baseline Room Air [...] + +---------+---------+---------+ +---------+ + Shunts Oxygen ValuesO2 Rmcqzzte735.04O2 Nfaudftszkw816.12[facility]- [place], [place] Lonnie, Mhpn Incoming Cardio Results From [facility]/Ge - 03/17/2020 6:01 PM EST Cardiac Diagnostic Report Demographics Patient SHER Phillips Date of Study 03/17/2020 Name Date of 1960 Gender Female Age 59 year(s) Race Room [id number]^SHARRI Height: 61 inch, 154.94 cm Number Corporate [id number] Weight: 178 pounds, 80.7 kg ID # Patient [id number] BSA: 1.8 m^2 BMI: 33.62 Acct # kg/m^2 MR # [id number] Performing Physician Zach Stephens Referring Physician # [...] Right coronary angiography. Contrast Material: - Isovue 59016 ml Fluoroscopy Time: Diagnostic: 2:01 minutes. Total: [...] assessed as CCS IV according to the Cymro clinical classification. Hemodynamics Condition: Baseline Room Air [...] +---------+---------+---------+ +---------+ + Shunts Oxygen Values O2 Pyhqhjrv705.04O2 Cogxunezoei471.12 [facility]- [place], KYComprehensive Metabolic Panelon [id number] [Mass/Vol] 3.8 g/dL3.5 - 5.2 g/dLMercy Health- [place], KYAlbumin/Globulin [Mass ratio]1.5 {ratio}[facility]- [place], KYALP [Catalytic activity/Vol]69 U/L35 - 104 U/LMercy Health- [place], KYALT [Catalytic activity/Vol]7 U/L5 - 33 U/LMercy Health- [place], [place] Anion gap [Moles/Vol]6 mmol/LLow9 - 17 mmol/LMercy Health- [place], KYAST [Catalytic activity/Vol]11 U/L<32[facility]- [place], KYBilirubin Ql (U)0.19 mg/dLLow0.3 - 1.2 mg/dLMercy Health- [place], KYBun/Cre Zxcgn51Ettnq Health- [place], KYCalcium [Mass/Vol] 8.9 mg/dL8.6 - 10.4 mg/dLMercy Health- [place], KYChloride [Moles/Vol]98 mmol/L98 - 107 mmol/LMercy Health- [place], KYCO2 [Moles/Vol]28 mmol/L20 - 31 mmol/LMercy Health- [place], KYCreatinine [Mass/Vol]1.4 mg/dLHigh0.5 - 0.9 mg/dLMercy Health- [place], KYGFR Zkcyjorn24 mL/minLow>60[facility]- [place], KYGFR Non- Tnxlcxxk11 mL/minLow>60[facility]- [place], KYGlucose [Mass/Vol]174 mg/lZAthf39 - 99 mg/dLMercy Health- [place], KYPotassium [Moles/Vol]4.1 mmol/L3.7 - 5.3 mmol/LMercy Health- [place], KYProtein [Mass/Vol]6.4 g/dL6.4 - 8.3 g/dLMercy Health- [place], [place] Sodium [Moles/Vol]132 mmol/MZyu478 - 144 mmol/LMercy Health- [place], KYUrea nitrogen [Mass/Vol]22 mg/dL8 - 23 mg/dLWaters[place], KYMetabolic Panelon 03-17-2020 GFR/1.73 sq M predicted among non-blacks MDRD (S/P/Bld) [Vol rate/Area][facility] CAComment on above:Stage 1: Some kidney damage normal [...] body mass. Additional eGFR calculator available at: http://www.Scoot [employer]le/multiple_crcl_2012.htm Otheron [id number] and review of laboratory resultsAbnormalGreen Cross HospitalCARLOSAronoponifahad [id number] I.cardiac [Mass/Vol]NOT REPORTED [facility] HospitalCARLOSRenen T.cardiac [Mass/Vol]NOT REPORTED<0.03 ng/mLGreen Cross HospitalCARLOSMaryam, High Sensitivity9 ng/L0 - 14 ng/LMDelaware County Hospital CARLOS Comment on above: High Sensitivity Troponin values cannot be compared with other Troponin methodologies. Patients with high levels of Biotin oral intake (i.e >5mg/day) may have falsely decreased Troponin levels. Samples collected within 8 hours of biotin intake may require additional information for diagnosis. Troponin I.cardiac [Mass/Vol]NOT REPORTEDGreen Cross HospitalCARLOSTahirnin T.cardiac [Mass/Vol]NOT REPORTED<0.03 ng/mLGreen Cross Hospital CARLOSTahirnin, High Sensitivity 12 ng/L0 - 14 ng/LMRutledge, KYComment on above: High Sensitivity Troponin values cannot be compared with other Troponin methodologies. Patients with high levels of Biotin oral intake (i.e >5mg/day) may have falsely decreased Troponin levels. Samples collected within 8 hours of biotin intake may require additional information for diagnosis. XR CHEST PORTABLEon [id number], Mhpn Incoming Radiant Results From [facility]/Pacs - 03/17/2020 1:33 PM EST EXAMINATION: ONE [...] previous infectious/inflammatory process. Calcific atherosclerotic disease aorta. [facility], KYEXAMINATION: ONE XRAY VIEW OF THE [...] is seen. No acute osseous abnormality is identified.[facility], KYNo definite acute pulmonary disease. Chronic appearing coarse interstitial densities predominate perihilar regions and lung bases, typical of sequela from smoking or other previous infectious/inflammatory process. Calcific atherosclerotic disease aorta.[facility]itH[facility], KYBasic Metabolic Panelon [id number] gap [Moles/Vol]9 mmol/L9 - 17 mmol/LMMemorial Hospital, KYBun/Cre Vpwpx53VwznzGreen Cross Hospital, KYCalcium [Mass/Vol]9.1 mg/dL8.6 - 10.4 mg/dLGreen Cross Hospital, KYChloride [Moles/Vol]97 mmol/LLow98 - 107 mmol/LMMemorial Hospital, KYCO2 [Moles/Vol]25 mmol/L20 - 31 mmol/[facility] [place], KYCreatinine [Mass/Vol]0.96 mg/dLHigh0.5 - 0.9 mg/dL [facility], KYGFR >60>60 mL/minGreen Cross Hospital, KYGFR Non- Vdmrpirq09 mL/minLow>60[facility], KYGlucose [Mass/Vol]82 mg/dL70 - 99 mg/dLGreen Cross Hospital, KYInterpretation and review of laboratory resultsAbnoMiami Valley Hospital, KYPotassium [Moles/Vol]4.4 mmol/L3.7 - 5.3 mmol/LMHolzer Health System [place], KYSodium [Moles/Vol]131 mmol/XFaw235 - 144 mmol/[facility], KYUrea nitrogen [Mass/Vol]12 mg/dL8 - 23 mg/dLGreen Cross Hospital, [place] Brain Natriuretic Peptideon [id number] and review of laboratory resultsAbUniversity Hospitals Beach[facility], KYNatriuretic peptide B (Bld) [Mass/Vol]1385 pg/mLHigh<300[facility], KYComment on above:Pro-BNP results cannot be compared to BNP results.Natriuretic peptide B (Bld) [Mass/Vol]Pro-BNP Reference Range:[facility], CAComment on above: Rule Out: <300 [place] Zone: Age <50 300-450 Age 50-75 300-900 Age >75 300-1800 Usually represents mild to moderate HF but other cardiopulmonary causes cannot be ruled out. Rule In: Age <50 >450 Age 50-75 >900 Age >75 >1800 CBC Auto Differentialon [id number] (Bld) [#/Vol]0.09 10*3/[facility], KYBasophils/100 WBC (Bld)1 %0 - 2 %[facility], KYDifferential TypeNOT REPORTEDGreen Cross Hospital, KYEosinophils (Bld) [#/Vol]0.41 10*3/[facility]- [place], KYEosinophils/100 WBC (Bld)5 %High1 - 4 %[facility], [place] Erythrocyte distribution width (RBC) [Ratio]14.8 %High11.8 - 14.4 %[facility], CARLOSHematocrit (Bld) [Volume fraction]42.3 %36.3 - 47.1 %[facility], [place] Hemoglobin (Bld) [Mass/Vol]13.5 g/dL11.9 - 15.1 g/dLGreen Cross Hospital, CARLOSImmature granulocytes (Bld) [#/Vol]10*3/uLGreen Cross Hospital, CARLOSImmature granulocytes (Bld) [#/Vol]0 %0[facility], CAInterpretation and review of laboratory resultsAbnormalGreen Cross Hospital, CARLOSLymphocytes (Bld) [#/Vol]1.81 10*3/uLGreen Cross Hospital, CARLOSLymphocytes/100 WBC (Bld)22 %Low24 - 43 %[facility], [facility] (RBC) [Entitic mass]28.1 pg25.2 - 33.5 pgGreen Cross Hospital, CAMCHC (RBC) [Mass/Vol]31.9 g/dL28.4 - 34.8 g/dLGreen Cross Hospital, CARLOSMCV (RBC) [Entitic vol] 87.9 fL82.6 - 102.9 fLGreen Cross Hospital, CARLOSMonocytes (Bld) [#/Vol]0.55 10*3/uL [facility], CARLOSMonocytes/100 WBC (Bld)7 %3 - 12 %[place], [place] Platelet mean volume (Bld) [Entitic vol]9.0 fL8.1 - 13.5 fLWatersmeet, [place] Platelets (Bld) [#/Vol]NOT REPORTEDGreen Cross Hospital, CARLOSPlatelets (Bld) [#/Vol] 240 10*3/uLGreen Cross Hospital, CARLOSRBC (Bld) [#/Vol]4.81 10*6/uL3.95 - 5.11 m/uL [facility], CARBC morphology finding Nom (Bld)NOT REPORTEDGreen Cross Hospital, CASegmented neutrophils/100 WBC (Bld)65 %36 - 65 %[facility] Absolute5.37[facility] (Bld) [#/Vol]0.0 10*3/uL0.0 per 100 WBCMarietta Osteopathic Clinic (Bld) [#/Vol]8.3 10*3/uLMarietta Osteopathic Clinic MorphologyNOT REPORTEDWatersmeet, KYMetabolic Panelon [id number]/1.73 sq M predicted among non-blacks MDRD (S/P/Bld) [Vol rate/Area][facility] on above:Average GFR for 60-69 years old: 85 mL/min/1.73sq m Chronic Kidney Disease: <60 mL/min/1.73sq m Kidney failure: <15 mL/min/1.73sq m eGFR calculated using average adult body mass. Additional eGFR calculator available at: http://www.Sc[employer]oodle/multiple_crcl_2012.htm Stage 1: Some kidney damage normal GFR Stage 2: Mild kidney damage GFR 60-89 Stage 3: Moderate kidney damage GFR 30-59 Stage 4: Severe kidney damage GFR 15-29 Stage 5: Severe kidney damage GFR <15 ESRD - chronic treatment by dialysis or transplant Troponinon [id number] I.cardiac [Mass/Vol]NOT REPORTEDWatersmeet, KYTrthompson cancer [facility], [place]nin T.cardiac [Mass/Vol]NOT REPORTED<0.03 ng/mLWatersmeet, [place] Troponin, High Aitfdswlhoj24 ng/L0 - 14 ng/LMCHI Health [facility] on above: High Sensitivity Troponin values cannot be compared with other Troponin methodologies. Patients with high levels of Biotin oral intake (i.e >5mg/day) may have falsely decreased Troponin levels. Samples collected within 8 hours of biotin intake may require additional information for diagnosis. XR CHEST PORTABLEon [id number], kevin Incoming Radiant Results From [place] - 03/13/2020 1:12 PM EST EXAMINATION: ONE [...] for congestive heart failure and mild edema. [facility]- [place], KYEXAMINATION: ONE XRAY VIEW OF THE CHEST 03/13/2020 12:25 pm COMPARISON: October 08, 2019 HISTORY: ORDERING SYSTEM PROVIDED HISTORY: dyspnea TECHNOLOGIST PROVIDED HISTORY: dyspnea FINDINGS: Cardiac silhouette is enlarged. No pneumothorax. No pleural effusion. Pulmonary vascular congestion. Interstitial prominence within the lung bases. Overall, findings are slightly progressed since previous exam.[facility]- [place], KYFindings as above concerning for congestive heart failure and mild edema.[facility]- [place], KYMicroscopic Urinalysison [id number], UANOT REPORTEDNoneMercy Health- [place], [place] Bacteria, UA2+AbnormalNoneMey Health- [place], KYCasts UANOT REPORTED/LPFMercy Health- [place], KYCrystals, UANOT REPORTEDNone /HPFMercy Health- [place], KYEpithelial Cells UA0 TO 2[facility]- [place], KYInterpretation and review of laboratory resultsAbnormalMercy Health- [place], KYMucus, UANOT REPORTEDNoneMercy Health- [place], [place] Other Observations UANOT REPORTEDNOT REQ.[facility]- [place], KYRBC (U) [#/Vol]0 TO 2[facility]- [place], KYRenal Epithelial, UANOT REPORTED0 /HPFMercy Health- [place], [place] Trichomonas, UANOT REPORTEDNoneMercy Health- [place], KYWBC, UA10 TO 20[facility]- [place], KYYeast, UANOT REPORTEDNoneMercy Health- [place], [place]-[facility]- [place], [place] Urinalysis Reflex to Cultureon [id number] UrineNegativeNEGATIVEMercy Health- [place], KYColor, UAYELLOWYELLOWMercy Health- [place], KYGlucose, UrNegative NEGATIVEMercy Health- [place], KYInterpretation and review of laboratory results AbnormalMercy Health- [place], KYKetones Ql (U)NegativeNEGATIVEMercy Health- [place], [place] Leukocyte esterase Test strip Ql (U)MODERATEAbnormalNEGATIVEMercy Health- [place], [place] Nitrite, UrinePositiveAbnormalNEGATIVEMercy Health- [place], KYpH, UA6.0[facility]- [place], KYProtein (U) [Mass/Vol]NegativeNEGATIVEPomerene Hospital- [place], KYSpecific [place], UA1.020[facility]- [place], KYTurbidity UACLEARCLEARSt. John Of God [facility] [place], [place] Urinalysis CommentsNOT REPORTEDPomerene Hospital- [place], KYUrine Hgb1+AbnormalNEGATIVE [facility], KYUrobilinogen, UrineNormalNormalSt. John Of God Hospital [place], KYXR HIP 3- 4 VW W PELVIS BILATERALon [id number] right hip osteoarthritis. Suggestion of slight increased sclerosis and flattening of the femoral head could be on the basis of avascular necrosis. Mild left hip degenerative changes. Calcific densities along both greater trochanters are nonspecific and may be related to prior trauma or canbe seen with calcific tendinosis.[facility], Bridgette Win Incoming Radiant Results From [facility]/Talkwheels - 02/12/2020 3:49 PM EST EXAMINATION: ONE [...] or can be seen with calcific tendinosis. [facility], CARLOSEXAMINATION: ONE X-RAY VIEW OF THE [...] fragment adjacent to the greater trochanter is nonspecific.[facility], CACBC Auto Differentialon [id number] (Bld) [#/Vol]0.11 10*3/[facility], KYBasophils/100 WBC (Bld)1 %0 - 2 %[facility], [place] Differential TypeNOT REPORTEDGreen Cross Hospital, KYEosinophils (Bld) [#/Vol]0.38 10*3/[facility], KYEosinophils/100 WBC (Bld)4 %1 - 4 %[facility], CAErythrocyte distribution width (RBC) [Ratio]14.6 %High11.8 - 14.4 %[facility], CAHematocrit (Bld) [Volume fraction]46.9 %36.3 - 47.1 %[facility], CAHemoglobin (Bld) [Mass/Vol]14.5 g/dL11.9 - 15.1 g/dLGreen Cross Hospital, [place] Immature granulocytes (Bld) [#/Vol]0 %0[facility], CAImmature granulocytes (Bld) [#/Vol]0.03 10*3/[facility], CAInterpretation and review of laboratory resultsAbnormalGreen Cross Hospital, KYLymphocytes (Bld) [#/Vol]1.55 10*3/[facility], KYLymphocytes/100 WBC (Bld)15 %Low24 - 43 %[facility], KYMCH (RBC) [Entitic mass]28.4 pg25.2 - 33.5 pgGreen Cross Hospital, [place] MCHC (RBC) [Mass/Vol]30.9 g/dL28.4 - 34.8 g/dLAshtabula County [facility]- [place], CARLOSMCV (RBC) [Entitic vol]91.8 fL82.6 - 102.9 fLKettering Health Miamisburginocencio Health- [place], CARLOSMonocytes (Bld) [#/Vol] 0.55 10*3/uLKettering Health Miamisburginocencio Health- [place], KYMonocytes/100 WBC (Bld)5 %3 - 12 %[facility]- [place], CARLOSPlatelet mean volume (Bld) [Entitic vol]9.6 fL8.1 - 13.5 fLPomerene Hospital- [place], KYPlatelets (Bld) [#/Vol]NOT REPORTEDPomerene Hospital- [place], KYPlatelets (Bld) [#/Vol]278 10*3/uLKettering Health Miamisburginocencio [facility]- [place], CARLOSRBC (Bld) [#/Vol]5.11 10*6/uL3.95 - 5.11 m/uLPomerene Hospital- [place], KYRBC morphology finding Nom (Bld)ANISOCYTOSIS PRESENT [facility]- [place], CARLOSSegmented neutrophils/100 WBC (Bld)75 %High36 - 65 %[facility]- [place], CARLOSSegs Absolute7.53[facility]- [place], KYWBC (Bld) [#/Vol]10.2 10*3/uL [facility]- [place], KYWBC (Bld) [#/Vol]0.0 10*3/uL0.0 per 100 WBCPomerene Hospital- [place], KYWBC MorphologyNOT REPORTEDPomerene Hospital- [place], CARLOSCardiacon [id number] [Mass/Vol]267 mg/dLHigh(<200)[facility] Work Phone: Comment on above:Note: Cholesterol Guidelines:<200 Gbobcewsh794-739 Borderline>240 UndesirableResponsible Observer: CCEV AUTOFILE ([id number])Comprehensive Metabolic Panelon [id number] [Mass/Vol]4.3 g/dL3.5 - 5.2 g/dLAshtabula County Medical Center [facility]- [place], KYAlbumin/Globulin [Mass ratio]1.6 {ratio}[facility]- [place], CARLOSALP [Catalytic activity/Vol]79 U/L35 - 104 U/LMgood [facility]- [place], [place] ALT [Catalytic activity/Vol]7 U/L5 - 33 U/LMgood samaritan hospital [facility]- [place], KYAnion gap [Moles/Vol]16 mmol/L9 - 17 mmol/LMgood samaritan hospital Health- [place], KYAST [Catalytic activity/Vol]17 U/L<32[facility]- [place], KYBilirubin Ql (U)0.16 mg/dLLow0.3 - 1.2 mg/dLPomerene Hospital- [place], KYBun/Cre RatioNOT REPORTEDMerShriners Hospital for Children- [place], KYCalcium [Mass/Vol]10.0 mg/dL8.6 - 10.4 mg/dLPomerene Hospital- [place], KYChloride [Moles/Vol]103 mmol/L98 - 107 mmol/LMgood samaritan hospital Health- [place], KYCO2 [Moles/Vol]21 mmol/L20 - 31 mmol/L [facility], KYCreatinine [Mass/Vol]1.32 mg/dLHigh0.5 - 0.9 mg/dLPomerene Hospital- [place], KYGFR Dgwxuohz73 mL/minLow>60[facility]- [place], KYGFR Non- Oqhrxvxl24 mL/minLow>60[facility]- [place], KYGFR/1.73 sq M predicted among non-blacks MDRD (S/P/Bld) [Vol rate/Area][facility], KYComment on above: Average GFR for 60-69 years old: 85 mL/min/1.73sq m Chronic Kidney Disease: <60 mL/min/1.73sq m Kidney failure: <15 mL/min/1.73sq m eGFR calculated using average adult body mass. Additional eGFR calculator available at: http://www.Banyan.[employer]/multiple_crcl_2012.htm GFR/1.73 sq M predicted among non-blacks MDRD (S/P/Bld) [Vol rate/Area]NOT REPORTEDPomerene Hospital- [place], KYGlucose [Mass/Vol]122 mg/uHWmmy03 - 99 mg/dLSt. John Of God Hospital [place], KYPotassium [Moles/Vol]5.1 mmol/L3.7 - 5.3 mmol/LMgood samaritan hospital [facility]- [place], KYProtein [Mass/Vol]7.0 g/dL6.4 - 8.3 g/dLMerUK Healthcare, KYSodium [Moles/Vol] 140 mmol/L135 - 144 mmol/LMercy [facility] [place], KYUrea nitrogen [Mass/Vol]18 mg/dL8 - 23 mg/dLGreen Cross Hospital, KYHematologyon [id number]/100 WBC (Bld)1 % (0-2)[facility] Work Phone: Comment on above:Note: Responsible Observer: XNV AUTOFILE ([id number])Eosinophils (Bld) [#/Vol]0.38 10*3/uL(0.00-0.44)[facility] Work Phone: Comment on above:Note: Responsible Observer: XNV AUTOFILE ([id number])Eosinophils/100 WBC (Bld)4 %(1-4)[facility] Work Phone: Comment on above:Note: Responsible Observer: XNV AUTOFILE ([id number])Hematocrit (Bld) [Volume fraction]46.9 %(36.3-47.1)[facility] Work Phone: Comment on above:Note: Responsible Observer: XNV AUTOFILE ([id number])Hemoglobin (Bld) [Mass/Vol]14.5 g/dL(11.9-15.1)[facility] Work Phone: Comment on above:Note: Responsible Observer: XNV AUTOFILE ([id number])Lymphocytes (Bld) [#/Vol]1.55 10*3/uL(1.10-3.70)[facility] Work Phone: Comment on above:Note: Responsible Observer: XNV AUTOFILE ([id number])Lymphocytes/100 WBC (Bld)15 %Low(24-43)[facility] Work Phone: Comment on above:Note: Responsible Observer: XNV AUTOFILE ([id number])MCH (RBC) [Entitic mass]28.4 pg(25.2-33.5)[facility] Work Phone: Comment on above:Note: Responsible Observer: XNV AUTOFILE ([id number])MCV (RBC) [Entitic vol]91.8 fL(82.6-102.9)[facility] Work Phone: Comment on above:Note: Responsible Observer: XNV AUTOFILE ([id number])Monocytes (Bld) [#/Vol]0.55 10*3/uL(0.10-1.20)[facility] Work Phone: Comment on above:Note: Responsible Observer: XNV AUTOFILE ([id number])Monocytes/100 WBC (Bld)5 %(3-12)[facility] Work Phone: Comment on above:Note: Responsible Observer: XNV AUTOFILE (3017)Platelets (Bld) [#/Vol]278 10*3/uL(138-453)[facility] Work Phone: Comment on above:Note: Responsible Observer: XNV AUTOFILE ([id number])Platelets (Bld) [#/Vol]NOT REPORTEDBerkshire Medical Center Work Phone: RBC (Bld) [#/Vol]5.11 10*6/uL(3.95-5.11)[facility] Work Phone: Comment on above:Note: Responsible Observer: XNV AUTOFILE ([id number])RBC morphology finding Nom (Bld)ANISOCYTOSIS PRESENTBerkshire Medical Center Work Phone: Comment on above:Note: Responsible Observer: XNV AUTOFILE ([id number])WBC (Bld) [#/Vol]0.0 per_100_WBC(0.0)[facility] Work Phone: Comment on above:Note: Responsible Observer: XNV AUTOFILE ([id number])WBC (Bld) [#/Vol]10.2 10*3/uL(3.5-11.3)[facility] Work Phone: Comment on above:Note: Responsible Observer: XNV AUTOFILE ([id number])Lipid, Fastingon 99-11-2279Zahdwkfraao [Mass/Vol]267 mg/dLHigh <200[facility], CAComment on above: Cholesterol Guidelines: <200 Desirable 200-240 Borderline >240 Undesirable Cholesterol in HDL [Mass/Vol]36 mg/dLLow>40Mer[facility], CAComment on above: HDL Guidelines: <40 Undesirable 40-59 Borderline >59 Desirable Cholesterol in LDL [Mass/Vol]172 mg/dLHigh0 - 130 mg/dLGreen Cross Hospital, [place] Comment on above: LDL Guidelines: <100 Desirable 100-129 Near to/above Desirable 130-159 Borderline >159 Undesirable Direct (measured) LDL and calculated LDL are not interchangeable tests. Cholesterol in VLDL [Mass/Vol]NOT REPORTEDHigh1 - 30 mg/dLW[place], [place] Cholesterol.total/Cholesterol in HDL [Mass ratio]7.4 {ratio}High<5[facility] [place], CATriglyceride, Lhguedi646 mg/dLHigh<150MerUK [facility], KYComment on above: Triglyceride Guidelines: <150 Desirable 150-199 Borderline 200-499 High >499 Very high Based on AHA Guidelines for fasting triglyceride, December 2011. Metabolic Panelon [id number] [Mass/Vol]4.3 g/dL(3.5-5.2)[facility] Work Phone: Comment on above:Note: Responsible Observer: CCEV AUTOFILE ([id number])ALT [Catalytic activity/Vol]7 U/L(5-33)[facility] Work Phone: Comment on above:Note: Responsible Observer: CCEV AUTOFILE ([id number])Anion gap [Moles/Vol]16 mmol/L(9-17)[facility] Work Phone: Comment on above:Note: Responsible Observer: CCEV AUTOFILE ([id number])AST [Catalytic activity/Vol]17 U/L(<32)[facility] Work Phone: Comment on above:Note: Responsible Observer: CCEV AUTOFILE (3002)Bilirubin [Mass/Vol]0.16 mg/dLLow(0.3-1.2)[facility] Work Phone: Comment on above:Note: Responsible Observer: CCEV AUTOFILE (3002)Calcium [Mass/Vol]10.0 mg/dL(8.6-10.4)[facility] Work Phone: Comment on above:Note: Responsible Observer: CCEV AUTOFILE (3002)Chloride [Moles/Vol]103 mmol/L(98-107)[facility] Work Phone: Comment on above:Note: Responsible Observer: CCEV AUTOFILE (3002)CO2 [Moles/Vol]21 mmol/L(20-31)[facility] Work Phone: Comment on above:Note: Responsible Observer: CCEV AUTOFILE (3002)Creatinine [Mass/Vol]1.32 mg/dLHigh(0.50-0.90)[facility] Work Phone: Comment on above:Note: Responsible Observer: CCEV AUTOFILE (3002)Glucose [Mass/Vol]122 mg/dLHigh(70-99)[facility] Work Phone: Comment on above:Note: Responsible Observer: CCEV AUTOFILE (3002)Potassium [Moles/Vol]5.1 mmol/L(3.7-5.3)[facility] Work Phone: Comment on above:Note: Responsible Observer: CCEV AUTOFILE (3002)Protein [Mass/Vol]7.0 g/dL(6.4-8.3)[facility] Work Phone: Comment on above:Note: Responsible Observer: CCEV AUTOFILE (3002)Sodium [Moles/Vol]140 mmol/L(135-144)[facility] Work Phone: Comment on above:Note: Responsible Observer: CCEV AUTOFILE (3002)Urea nitrogen [Mass/Vol]18 mg/dL(8-23)[facility] Work Phone: Comment on above:Note: Responsible Observer: CCEV AUTOFILE ([id number])Other 78-27-5268Lhneyocuzsomkn and review of laboratory results [facility], [place](cont.)See NoteBerkshire Medical Center Work Phone: Comment on above:Note: Average GFR for 60-69 years old:85 mL/min/1.73sq mChronic Kidney Disease:<60 mL/min/1.73sqmKidney failure:<15 mL/min/1.73sq meGFR calculated using average adult body mass. Additional eGFR calculatoravailable at:http://www.[employer]/multiple_crcl_2011.htmResponsible Observer: CCEV AU TOFILE (3002)Abs. Basophil0.11 k/uL(0.00-0.20)[facility] Work Phone: Comment on above:Note: Responsible Observer: XNV AUTOFILE ([id number])Abs.Imm.Granulocyte0.03 k/uL(0.00-0.30)[facility] Work Phone: Comment on above:Note: Responsible Observer: XNV AUTOFILE ([id number])Abs.Neutrophil (Seg)7.53 k/uL(1.50-8.10)[facility] Work Phone: Comment on above:Note: Responsible Observer: XNV AUTOFILE (3018)Albumin/Glob Ratio1.6(1.0-2.5)[facility] Work Phone: Comment on above:Note: Responsible Observer: CCEV AUTOFILE (3002)Alkaline Phos79 U/L(35-104)[facility] Work Phone: Comment on above:Note: Responsible Observer: CCEV AUTOFILE (3002)Auto Diff PerformedNOT REPORTEDBerkshire Medical Center Work Phone: BUN/CRE RatioNOT REPORTED(9-20)[facility] Work Phone: Cholesterol,HDL36 mg/dLLow(>40)[facility] Work Phone: Comment on above:Note: HDL Guidelines:<40 Jorwqtmlfhj67-79 Borderline>59 DesirableResponsible Observer: CCEV AUTOFILE (3002)Cholesterol,UJU442 mg/dLHigh(0-130)[facility] Work Phone: Comment on above:Note: LDL Guidelines:<100 Sqdxtrlyo658-027 Near to/above Eonbrzyzd977-000 Borderline>159 UndesirableDirect (measured) LDL and calculated LDL are not interchangeable tests.Responsible Observer: CCEV AUTOFILE (3002)Cholesterol,VLDLNOT REPORTED mg/dL(1-30)[facility] Work Phone: Cholesterol.total/Cholesterol in HDL [Mass ratio]7.4 {ratio}High(<5)[facility] Work Phone: Comment on above:Note: Responsible Observer: CCEV AUTOFILE (3002)Erythrocyte distribution width (RBC) [Ratio]14.6 %High(11.8-14.4) [facility] Work Phone: Comment on above:Note: Responsible Observer: XNV AUTOFILE (3018)GFR, Amer50 mL/minLow(>60)[facility] Work Phone: Comment on above:Note: Responsible Observer: CCEV AUTOFILE (3002)GFR,non Amer41 mL/minLow(>60)[facility] Work Phone: Comment on above:Note: Responsible Observer: CCEV AUTOFILE ([id number])Immature granulocytes (Bld) [#/Vol]0 %(0)[facility] Work Phone: Comment on above:Note: Responsible Observer: XNV AUTOFILE ([id number])MCHC (RBC) [Mass/Vol]30.9 g/dL(28.4-34.8)[facility] Work Phone: Comment on above:Note: Responsible Observer: XNV AUTOFILE ([id number])Performing Lab:see noteHealth [facility] Work Phone: Comment on above:Note: [employer] [address] [facility] [address] Platelet mean volume (Bld) [Entitic vol] 9.6 fL(8.1-13.5)[facility] Work Phone: Comment on above:Note: Responsible Observer: XNV AUTOFILE ([id number])Reported PhysiciansSee NoteBerkshire Medical Center Work Phone: Comment on above:Note: Reported Physicians:Ordering: Eric CalderóneeAttending: Stephane, AimeeReferring: Cotton, AimeeSegmented neutrophils/100 WBC (Bld)75 %High(36-65)[facility] Work Phone: Comment on above:Note: Responsible Observer: XNV AUTOFILE ([id number])Staging:NOT REPORTED[facility] Work Phone: Thyroid Stim. Horm.2.41 mIU/L(0.30-5.00)[facility] Work Phone: Comment on above:Note: Responsible Observer: SWATI NASH ([id number])Triglyceride,Wgoxbrq424 mg/dLHigh(<150)[facility] Work Phone: Comment on above:Note: Triglyceride Guidelines:<150 Dpatnbiyd434-470 Favevjylam146-940 High>499 Very highBasedon AHA Guidelines for fasting triglyceride, December 2011.Responsible Observer: CCEV AUTOFILE ([id number])WBC MorphologyNOT REPORTEDHealth [facility] Work Phone: TSH with Reflexon [id number] Qn2.41 m[IU]/[place] King [facility], KYLUMBAR SPINE 4 OR 5 Son [id number] SPINE 4 OR 5 S [facility] Department of Radiology [address] [place] [id number] Patient Name: JONATAN OLIVAREZ : 1960 Sex: F Age: Race: White Pt. Location: 84 Patient Status: Ordered Date: 12/24/2019 10:40:00 AM Completed Date: 12/24/2019 10:41 AM Requesting Provider: ZIYAD BENITEZ Attending Provider: Report Copy To: Signs & Symptoms: M48.061 Spinal stenosis, lumbar region without neurogenic chapito I10 History: [place] Comments: , , , Ordering Provider - ZIYAD BENITEZ MD , Exam: LUMBAR SPINE 4 OR 5 [facility] LUMBAR SPINE 4 OR 5 S [...] Electronically signed: Dionicio Bhakta M.D.. Transcribed by: [email or web address], User Resident: Electronically Signed by: DIONICIO BHAKTA @ 12/24/2019 08:37 [facility] HospitalComment on above:Order Comment: , , , Ordering Provider - ZIYAD BENITEZ MD , Microscopic Urinalysison [id number], UANOT REPORTEDNoneMercy Health- [place], [place] Bacteria, UAMODERATEAbnormalNoneMercy [...] [place]-[facility]- [place], KYUrinalysis Reflex to Cultureon [id number] UrineNegative NEGATIVEMercy Health- [place], KYColor, UADARK YELLOWAbnormalYELLOWMercy Health- [place], KYGlucose, UrNegativeNEGATIVEMercy Health- [place], KYInterpretation and review of laboratory resultsAbnormalMercy Health- [place], KYKetones Ql (U)NegativeNEGATIVE [facility] [place], KYLeukocyte esterase Test strip Ql (U)MODERATEAbnormalNEGATIVE [facility], KYNitrite, UrineNegativeNEGATIVEMercy Health- [place], KYpH, UA7.0 [facility]- [place], KYProtein (U) [Mass/Vol]1+AbnormalNEGATIVEMercy Health- [place], [place] Specific [place], UA1.025[facility]- [place], KYTurbidity UATURBIDAbnormalCLEAR [facility]- [place], KYUrinalysis CommentsNOT REPORTEDMercy Health- [place], KYUrine Hgb SMALLAbnormalNEGATIVEMercy Health- [place], KYUrobilinogen, UrineNormalNormalMercy Health- [place], KYHematologyon [id number] (Bld) [Mass/Vol]SMALLAbnormal (NEG)[facility] Work Phone: Comment on above:Note: Responsible Observer: ZI [id number])Metabolic Panelon [id number].direct [Mass/Vol]Negative (NEG)[facility] Work Phone: Comment on above:Note: Responsible Observer: ZI Eagle9449)Glucose [Mass/Vol]Negative(NEG)[facility] Work Phone: Comment on above:Note: Responsible Observer: ZI Eagle372Shefali)Protein [Mass/Vol]1+Abnormal(NEG)[facility] Work Phone: Comment on above:Note: Responsible Observer: ZI Eagle2829)Otheron 11-16-2019-----See NoteHealth [facility] Work Phone: Comment on above:Note: Responsible Observer: ZI Eagle7225)Acetoacetic Acid,UrNegative(NEG)[facility] Work Phone: Comment on above:Note: Responsible Observer: ZI VARGAS ([id number])CommentNOT REPORTEDHealth [facility] Work Phone: Cult,UrineSee NoteProvidence Hospital [facility] Work Phone: Comment on above:Note: Specimen Description .URINESpecial Requests NOT REPORTEDCulture CITROBACTER FREUNDII >[id number] CFU/MLReport Status FINAL 11/18/2019SUSCEPTIBILITYOrganism CITROBACTER FREUNDIIMethod MICAmikacinNOT REPORTEDAztreonam <=1 SUSCEPTIBLECefazolin NOT REPORTEDCefepime NOT REPORTEDCeftriaxone <=1 SUSCEPTIBLECiprofloxacin <=0.25 SUSCEPTIBLEErtapenem NOT REPORTEDGentamicin <=1 SUSCEPTIBLEMeropenem NOT REPORTEDNitrofurantoin <=16 SUSCEPTIBLETigecycline NOT REPORTEDTobramycin <=1 SUSCEPTIBLETrimethoprim/Sulfa <=20 SUSCEPTIBLEPiperacillin/Tazobactam <=4 SUSCEPTIBLEResponsibleObserver: ZI VARGAS ([id number])Epithelial, RenalNOT REPORTED /HPF(0)[facility] Work Phone: Leuckocyte EsteraseMODERATEAbnormal(NEG)[facility] Work Phone: Comment on above:Note: Responsible Observer: ZI VARGAS ([id number])Mucus StrandsNOT REPORTED(NONE)[facility] Work Phone: Nitrite,UrNegative(NEG)[facility] Work Phone: Comment on above:Note: Responsible Observer: ZI VARGAS ([id number])Other ObservationsNOT REPORTED(NREQ)[facility] Work Phone: Performing Lab:see noteBerkshire Medical Center Work Phone: Comment on above:Note: [facility] [address] [facility] [address] PH,Ur7.0(5.0-8.0)[facility] Work Phone: Comment on above:Note: Responsible Observer: ZI VARGAS ([id number])RBC (U) [#/Vol]5 TO 10 /HPF(0-2)[facility] Work Phone: Comment on above:Note: Responsible Observer: ZI VARGAS ([id number])Reported PhysiciansSee NoteBerkshire Medical Center Work Phone: Comment on above:Note: Reported Physicians:Ordering: Stephane AimeeAttending: Cotton, AimeeReferring: Cotton, AimeeSpec. [place],Ur 1.025(1.005-1.030)[facility] Work Phone: Comment on above:Note: Responsible Observer: ZI VARGAS ([id number])TrichomonasNOT REPORTED(NONE)[facility] Work Phone: TurbidityTURBIDAbnormal(CLEAR)[facility] Work Phone: Comment on above:Note: Responsible Observer: ZI VARGAS ([id number])Urobilinogen,UrNormal(NORM)[facility] Work Phone: Comment on above:Note: Responsible Observer: ZI VARGAS ([id number])Urinalysison [id number] sediment LM Ql (Urine sed)NOT REPORTED(NONE)[facility] Work Phone: Bacteria identified Cx Nom (U)See NoteBerkshire Medical Center Work Phone: Comment on above:Note: Specimen Description .URINESpecial Requests NOT REPORTEDCulture CITROBACTER FREUNDII >[id number] CFU/MLReport Status FINAL 11/18/2019SUSCEPTIBILITYOrganism CITROBACTER FREUNDIIMethod MICAmikacinNOT REPORTEDAztreonam <=1 SUSCEPTIBLECefazolin NOT REPORTEDCefepime NOT REPORTEDCeftriaxone <=1 SUSCEPTIBLECiprofloxacin <=0.25 SUSCEPTIBLEErtapenem NOT REPORTEDGentamicin <=1 SUSCEPTIBLEMeropenem NOT REPORTEDNitrofurantoin <=16 SUSCEPTIBLETigecycline NOT REPORTEDTobramycin <=1 SUSCEPTIBLETrimethoprim/Sulfa <=20 SUSCEPTIBLEPiperacillin/Tazobactam <=4 SUSCEPTIBLEResponsibleObserver: ZI VARGAS ([id number])Bacteria LM.HPF (Urine sed) [#/Area]MODERATEAbnormal(NONE)[facility] Work Phone: Comment on above:Note: Responsible Observer: ZI VARGAS ([id number])Casts LM.LPF (Urine sed) [#/Area]NOT REPORTED /LPF(0-2)[facility] Work Phone: Color (U)DARK YELLOWAbnormal(YEL)[facility] Work Phone: Comment on above:Note: Responsible Observer: ZI VARGAS ([id number])Crystals LM Nom (Urine sed)NOT REPORTED /HPF(NONE)[facility] Work Phone: Epithelial cells LM.HPF (Urine sed) [#/Area]0 TO 2 /HPF(0-5)[facility] Work Phone: Comment on above:Note: Responsible Observer: ZI VARGAS ([phone])WBC (U) [#/Vol]TOO NUMEROUS TO COUNT /HPF(0-5)[facility] Work Phone: Comment on above:Note: Responsible Observer: ZI VARGAS ([id number])Yeast LM Ql (Urine sed)NOT REPORTED(NONE)[facility] Work Phone: ammoniaon 25-99-4175Niibrjj (P) [Mass/Vol]26 umol/L11 - 51 umol/LMercy [facility], KYCT Head WO Contraston [id number]: CT OF THE HEAD WITHOUT CONTRAST 10/08/2019 [...] abnormality of the visualized skull or soft tissues.[facility], KYNo acute intracranial abnormality. Chronic small vessel ischemic disease.[facility], Bridgette Win Incoming Radiant Results From Nelbee/BitTorrent - 10/08/2019 12:43 AM EDT EXAMINATION: CT [...] intracranial abnormality. Chronic small vessel ischemic disease. [facility], KYComprehensive Metabolic Panelon [id number] [Mass/Vol] 3.6 g/dL3.5 - 5.2 g/dLGreen Cross Hospital, KYAlbumin/Globulin [Mass ratio]1.2 {ratio}[facility], KYALP [Catalytic activity/Vol]81 U/L35 - 104 U/LMHolzer Health System [place], KYALT [Catalytic activity/Vol]11 U/L5 - 33 U/LMHolzer Health System [place], [place] Anion gap [Moles/Vol]15 mmol/L9 - 17 mmol/LMuniversity hospitals cleveland medical centery Health- [place], KYAST [Catalytic activity/Vol]15 U/L<32[facility]- [place], KYBilirubin Ql (U)<0.10Low0.3 - 1.2 mg/dLPomerene Hospital- [place], KYBun/Cre Kwqyh38IdbtfSt. John Of God Hospital [place], KYCalcium [Mass/Vol] 9.1 mg/dL8.6 - 10.4 mg/dLGreen Cross Hospital, KYChloride [Moles/Vol]99 mmol/L98 - 107 mmol/LMHolzer Health System [place], KYCO2 [Moles/Vol]23 mmol/L20 - 31 mmol/LMKettering Health [facility]- [place], KYCreatinine [Mass/Vol]1.18 mg/dLHigh0.5 - 0.9 mg/dLGreen Cross Hospital, KYGFR Wdtpldef49 mL/minLow>60[facility] [place], KYGFR Non- Diozcofi43 mL/minLow>60[facility], KYGlucose [Mass/Vol]113 mg/vBWold03 - 99 mg/dLGreen Cross Hospital, KYInterpretation and review of laboratory results AbnormalGreen Cross Hospital, KYPotassium [Moles/Vol]4.4 mmol/L3.7 - 5.3 mmol/LMHolzer Health System [place], KYProtein [Mass/Vol]6.5 g/dL6.4 - 8.3 g/dLGreen Cross Hospital, [place] Sodium [Moles/Vol]137 mmol/L135 - 144 mmol/LMMemorial Hospital, KYUrea nitrogen [Mass/Vol]19 mg/dL8 - 23 mg/dLGreen Cross Hospital, KYLipaseon [id number] [Catalytic activity/Vol]20 U/L13 - 60 U/LMMemorial Hospital, KYMetabolic Panelon 67-19-1033NIN/1.73 sq M predicted among non-blacks MDRD (S/P/Bld) [Vol rate/Area][facility], KYComment on above:Stage 1: Some kidney [...] body mass. Additional eGFR calculator available at: http://www.Banyan.[employer]/multiple_crcl_2012.htm SPECIMEN REJECTIONon [id number] TestCP,TROPAdena Regional Medical Center CAReason for RejectionUnable to perform testing: Specimen hemolyzed.[place] Specimen source Nom (Unsp spec).BLOODWaters[place], [place]-NOT REPORTEDGreen Cross HospitalAdriananinon [id number] I.cardiac [Mass/Vol]NOT REPORTED Green Cross HospitalAdriananin T.cardiac [Mass/Vol]NOT REPORTED<0.03 ng/mLGreen Cross HospitalAdriananin, High Kuovbyaecxo37 ng/L0 - 14 ng/LMRutledge, [place] Comment on above: High Sensitivity Troponin values cannot be compared with other Troponin methodologies. Patients with high levels of Biotin oral intake (i.e >5mg/day) may have falsely decreased Troponin levels. Samples collected within 8 hours of biotin intake may require additional information for diagnosis. Interpretation and review of laboratory resultsAbnormalWatersmeet, [place] Troponin I.cardiac [Mass/Vol]NOT REPORTEDGreen [facility] Hospital CATahirnin T.cardiac [Mass/Vol]NOT REPORTED<0.03 ng/mLGreen Cross Hospital CATahirnin, High Sensitivity 15 ng/LHigh0 - 14 ng/LMRutledge, KYComment on above: High Sensitivity Troponin values cannot be compared with other Troponin methodologies. Patients with high levels of Biotin oral intake (i.e >5mg/day) may have falsely decreased Troponin levels. Samples collected within 8 hours of biotin intake may require additional information for diagnosis. XR CHEST STANDARD (2 VW)on [id number] bibasilar airspace opacities could represent underlying edema or developing atypical infection. Please correlate exam findings.[facility] Cross HospitalAudelia, Bridgette Incoming Radiant Results From Nelbee/BitTorrent - 10/08/2019 1:08 AM EDT EXAMINATION: TWO [...] developing atypical infection. Please correlate exam findings. [facility], KYEXAMINATION: TWO XRAY VIEWS OF THE [...] opacities. No pleural effusion or pneumothorax is present.[facility], KYCBC Auto Differentialon 10-07-2019 Basophils (Bld) [#/Vol]0.09 10*3/uLGreen Cross Hospital, KYBasophils/100 WBC (Bld)1 %0 - 2 %[facility], CARLOSDifferential TypeNOT REPORTEDGreen Cross Hospital, [place] Eosinophils (Bld) [#/Vol]0.92 10*3/uLAvita Health System [facility], KYEosinophils/100 WBC (Bld)8 %High1 - 4 %[facility], CAErythrocyte distribution width (RBC) [Ratio]17.7 %High11.8 - 14.4 %[facility], CARLOSHematocrit (Bld) [Volume fraction]35.5 %Low36.3 - 47.1 %[facility], CARLOSHemoglobin (Bld) [Mass/Vol] 11.3 g/dLLow11.9 - 15.1 g/dLGreen Cross Hospital, KYImmature granulocytes (Bld) [#/Vol]0.06 10*3/[facility], KYImmature granulocytes (Bld) [#/Vol]1 % Ufow2NpgyxGreen Cross Hospital, CARLOSInterpretation and review of laboratory resultsAbnormal [facility], KYLymphocytes (Bld) [#/Vol]1.93 10*3/uLGreen Cross Hospital, [place] Lymphocytes/100 WBC (Bld)17 %Low24 - 43 %[facility]- [place], KYH (RBC) [Entitic mass]28.0 pg25.2 - 33.5 pgPomerene Hospital- [place], KYMCHC (RBC) [Mass/Vol]31.8 g/dL28.4 - 34.8 g/dLPomerene Hospital- [place], KYV (RBC) [Entitic vol]88.1 fL82.6 - 102.9 fL [facility]- [place], KYMonocytes (Bld) [#/Vol]0.82 10*3/uLPomerene Hospital- [place], [place] Monocytes/100 WBC (Bld)7 %3 - 12 %[facility]- [place], KYPlatelet mean volume (Bld) [Entitic vol]9.6 fL8.1 - 13.5 fLPomerene Hospital- [place], KYPlatelets (Bld) [#/Vol]318 10*3/uLPomerene Hospital- [place], KYPlatelets (Bld) [#/Vol]NOT REPORTEDPomerene Hospital- [place], CARBC (Bld) [#/Vol]4.03 10*6/uL3.95 - 5.11 m/uLPomerene Hospital- [place], CARBC morphology finding Nom (Bld)NOT REPORTEDPomerene Hospital- [place], CASegmented neutrophils/100 WBC (Bld)66 %High36 - 65 %[facility]- [place], KYSegs Absolute7.51 [facility]- [place], KYWBC (Bld) [#/Vol]0.0 10*3/uL0.0 per 100 WBCPomerene Hospital- [place], KYWBC (Bld) [#/Vol]11.3 10*3/uLPomerene Hospital- [place], KYWBC MorphologyNOT REPORTED [facility]- [place], [facility] Centersic Metabolic Panelon [id number] gap [Moles/Vol]15 mmol/L9 - 17 mmol/LMgood [facility]aritan hospital [facility]- [place], KYBun/Cre Reqwh11Qkvke Health- [place], [place] Calcium [Mass/Vol]8.8 mg/dL8.6 - 10.4 mg/dLPomerene Hospital- [place], KYChloride [Moles/Vol]99 mmol/L98 - 107 mmol/LMKettering Health [facility]- [place], KYCO2 [Moles/Vol]24 mmol/L 20 - 31 mmol/LMercy Health- [place], KYCreatinine [Mass/Vol]0.95 mg/dLHigh0.5 - 0.9 mg/dLMercy Health- [place], KYGFR >60>60 mL/minMercy Health- [place], [place] GFR Non->60>60 mL/minMercy Health- [place], KYGlucose [Mass/Vol]163 mg/uZKmhb12 - 99 mg/dLMercy Health- [place], KYPotassium [Moles/Vol]4.5 mmol/L3.7 - 5.3 mmol/LMercy Health- [place], KYSodium [Moles/Vol]138 mmol/L135 - 144 mmol/LMercy Health- [place], KYUrea nitrogen [Mass/Vol]11 mg/dL8 - 23 mg/dLMercy Health- [place], [place] Blood Gas, Arterialon [id number] TestPASSMercy Health- [place], KYaPTT Coag (Bld) [Time]37 sMercy Health- [place], KYCarboxyhemoglobin6.6 %High0 - 5 %[facility]- [place], KYComment on above: Reference Range: Non-Smokers 0-2% Average Smoker 2-4% Heavy Smoker <10% AWU1OVD REPORTEDMercy Health- [place], KYHCO3, Lugekvzs68.5 mmol/L22 - 26 mmol/LMercy [facility]- [place], KYInterpretation and review of laboratory resultsAbnormalMercy Health- [place], KYMethemoglobin0.4 %0 - 1.9 %[facility]- [place], KYModeNOT REPORTED [facility] [place], KYNegative Base Excess, Art0.2 mmol/L0 - 2 mmol/LMercy Health- [place], KYNOTIFICATIONNOT REPORTEDMercy Health- [place], KYNOTIFICATION TIMENOT REPORTED [facility] [place], KYO2 Device/Flow/%CannulaMercy Health- [place], KYOxygen saturation in Blood89.4 %Low95 - 98 %[facility]- [place], KYOxyhemoglobinNOT PXYAZCSA00 - 98 %[facility]- [place], KYpCO2, Art, Temp AdjNOT REPORTEDMercy Health- [place], KYpCO2, Ksywocmj90.0HighMercy Health- [place], KYPeep/CpapNOT REPORTEDMercy Health- [place], KYpH, Art, Temp AdjNOT REPORTEDMercy Health- [place], KYpH, Arterial7.362[facility]- [place], KYpO2, Art, Temp AdjNOT REPORTEDMercy Health- [place], KYpO2, Qgzkrzzz92.8LowMercy Health- [place], KYPositive Base Excess, ArtNOT REPORTED0 - 2 mmol/LMercy Health- [place], KYPSVNOT REPORTEDMer Health- [place], KYPt. PositionSEMI-FOWLERSMer Health- [place], KYSample SiteRight Brachial ArteryMer Health- [place], KYSet RateNOT REPORTEDMer Health- [place], KYText for RespiratoryNOT REPORTEDMercy Health- [place], KYTotal HbNOT EEPUFSJP08 - 16 g/dlMercy Health- [place], KYTotal RateNOT REPORTEDMer Health- [place], KYVTNOT REPORTEDAs[facility]- [place], KYBrain Natriuretic Peptideon 10-06-2019 Natriuretic peptide B (Bld) [Mass/Vol]869 pg/mLHigh<300[facility] Zextit- [place], [place] Comment on above:Pro-BNP results cannot be compared to BNP results.Natriuretic peptide B (Bld) [Mass/Vol]Pro-BNP Reference Range:[facility] Zextit- [place], KYComment on above: Rule Out: <300 [place] Zone: Age <50 300-450 Age 50-75 300-900 Age >75 300-1800 Usually represents mild to moderate HF but other cardiopulmonary causes cannot be ruled out. Rule In: Age <50 >450 Age 50-75 >900 Age >75 >1800 CBC Auto Differentialon [id number] (Bld) [#/Vol]0.05 10*3/uLMer Health- [place], KYBasophils/100 WBC (Bld)1 %0 - 2 %[facility]- [place], KYDifferential TypeNOT REPORTEDAshtabula [facility]- [place], KYEosinophils (Bld) [#/Vol]0.61 10*3/uLHigh [facility]- [place], KYEosinophils/100 WBC (Bld)6 %High1 - 4 %[facility]- [place], [place] Erythrocyte distribution width (RBC) [Ratio]17.5 %High11.8 - 14.4 %[facility]- [place], KYHematocrit (Bld) [Volume fraction]34.1 %Low36.3 - 47.1 %[facility]- [place], KYHemoglobin (Bld) [Mass/Vol]11.0 g/dLLow11.9 - 15.1 g/dLPomerene Hospital- [place], [place] Immature granulocytes (Bld) [#/Vol]0.06 10*3/uLPomerene Hospital- [place], KYImmature granulocytes (Bld) [#/Vol]1 %Pbvd5SlggaPomerene Hospital- [place], KYInterpretation and review of laboratory resultsAbnormalPomerene Hospital- [place], KYLymphocytes (Bld) [#/Vol]1.48 10*3/[facility]- [place], KYLymphocytes/100 WBC (Bld)13 %Low24 - 43 %[facility]- [place], KYMCH (RBC) [Entitic mass]28.1 pg25.2 - 33.5 pgPomerene Hospital- [place], [place] MCHC (RBC) [Mass/Vol]32.3 g/dL28.4 - 34.8 g/dLPomerene Hospital- [place], KYMCV (RBC) [Entitic vol]87.0 fL82.6 - 102.9 fLPomerene Hospital- [place], KYMonocytes (Bld) [#/Vol] 0.67 10*3/[facility]- [place], KYMonocytes/100 WBC (Bld)6 %3 - 12 %[facility]- [place], CARLOSPlatelet mean volume (Bld) [Entitic vol]9.6 fL8.1 - 13.5 fLPomerene Hospital- [place], KYPlatelets (Bld) [#/Vol]251 10*3/[facility]- [place], KYPlatelets (Bld) [#/Vol]NOT REPORTEDPomerene Hospital- [place], KYRBC (Bld) [#/Vol]3.92 10*6/uLLow3.95 - 5.11 m/[facility]- [place], KYRBC morphology finding Nom (Bld)NOT REPORTEDPomerene Hospital- [place], KYSegmented neutrophils/100 WBC (Bld)73 %High36 - 65 %[facility]- [place], KYSegs Absolute8.24HighPomerene Hospital- [place], KYWBC (Bld) [#/Vol]0.0 10*3/uL0.0 per 100 WBCWatersmeet, KYWBC (Bld) [#/Vol]11.1 10*3/uLWatersmeet, [place] WBC MorphologyNOT REPORTEDGreen Cross HospitalCARLOSCOVID-19on [id number]-CoV-2 [place], KYSARS-CoV-2, PCRWaters[place], KYSARS-CoV-2, RapidNot DetectedNot DetectedGreen Cross Hospital CAComment on above: Rapid NAAT: The specimen is [...] management decisions. Fact sheet for Healthcare Providers: https://www.fda.gov/media/526562/download Fact sheet for Patients: https://www.fda.gov/media/819273/download Methodology: Isothermal Nucleic Acid Amplification Source.NASOPHARYNGEAL SWABWatersmeet, KYCT Chest Pulmonary Embolism W Contraston . No evidence for acute pulmonary embolism. 2. Bilateral ground-glass opacities are noted, nonspecific in appearance. This may represent multifocal infection (including viral pneumonia), inflammatory process or less likely edema. 3. Calcified atheromatous plaque and coronary calcification. 4. Bilateral adrenal adenomas.[place], KYEXAMINATION: CTA OF THE CHEST 10/06/2019 12:50 [...] Tissues/Bones: No acute bone or soft tissue abnormality.InfoRemate, Aud[place], Bridgette Incoming Radiant Results From Nelbee/BitTorrent - 10/06/2019 1:13 PM EDT EXAMINATION: CTA [...] and coronary calcification. 4. Bilateral adrenal adenomas. [facility] CARLOSD-Dimer, Quantitativeon [id number]-Dimer, Quant1.77High [facility] CARLOSRishabh on above: When combined with [...] distal DVT. Interpretation and review of laboratory resultsAbnormBrown Memorial Hospital, CARLOS Lactate, Sepsison [id number] Acid, Sepsis1.0 mmol/L0.5 - 1.9 mmol/[place], KYLactic Acid, Sepsis, Whole BloodNOT REPORTED0.5 - 1.9 mmol/[place], KYMetabolic Panelon [id number]/1.73 sq M predicted among non- blacks MDRD (S/P/Bld) [Vol rate/Area][facility] Cross HospitalCARLOSKhanhdai on above: Average GFR for 60-69 years old: 85 mL/min/1.73sq m Chronic Kidney Disease: <60 mL/min/1.73sq m Kidney failure: <15 mL/min/1.73sq m eGFR calculated using average adult body mass. Additional eGFR calculator available at: http://www.Banyan.V[employer]etics/multiple_crcl_2012.htm Stage 1: Some kidney damage normal GFR Stage 2: Mild kidney damage GFR 60-89 Stage 3: Moderate kidney damage GFR 30-59 Stage 4: Severe kidney damage GFR 15-29 Stage 5: Severe kidney damage GFR <15 ESRD - chronic treatment by dialysis or transplant Otheron [id number] and review of laboratory resultsAbnormalMercy Health- [place], KYTroponinon [id number] I.cardiac [Mass/Vol]NOT REPORTED [facility] [place], KYTroponin T.cardiac [Mass/Vol]NOT REPORTED<0.03 ng/mLMercy Health- [place], KYTroponin, High Jnapywisgae38 ng/L0 - 14 ng/LMercy Health- [place], [place] Comment on above: High Sensitivity Troponin values cannot be compared with other Troponin methodologies. Patients with high levels of Biotin oral intake (i.e >5mg/day) may have falsely decreased Troponin levels. Samples collected within 8 hours of biotin intake may require additional information for diagnosis. Urinalysis with Microscopicon [id number], UANOT REPORTEDNoneMercy Health- [place], KYBacteria, UA4+AbnormalNoneMercy Health- [...] Epithelial, UANOT REPORTED0 /HPFMer Health- [place], KYSpecific [place], UA1.020 MercCarilion [facility]- [place], KYTrichomonas, UANOT REPORTEDNoneMemarietta osteopathic clinic [facility]- [place], KYTurbidity UACLOUDYAbnormalCLEARPomerene Hospital- [place], KYUrinalysis CommentsNOT REPORTEDAs[facility]ula [facility]- [place], KYUrine HgbNegativeNEGATIVEMer Health- [place], KYUrobilinogen, Urine NormalNormalAshtabula [facility]- [place], KYWBC, UA20 TO 50Mer Health- [place], KYYeast, UANOT REPORTEDNoneMemarietta osteopathic clinic [facility]- [place], [place]-[facility]- [place], KYXR CHEST 1 VWon 10-06-2019 Lonnie, Mhpn Incoming Radiant Results From Nelbee/Talkwheels - 10/06/2019 10:21 AM EDT EXAMINATION: ONE [...] symptoms. 2. Enlargement of the pulmonary arteries. [facility], KYEXAMINATION: ONE XRAY VIEW OF THE [...] Central line and endotracheal tube no longer present.[facility], KY1. Multifocal patchy opacifications concerning for multifocal pneumonia. Recommend repeat chest x-ray after cessation of symptoms. 2. Enlargement of the pulmonary arteries.[facility], KYCOVID-19on [id number]-CoV-2MMemorial Hospital, [place] SARS-CoV-2, PCRNot DetectedNot [facility], CARLOSComment on above: (NOTE) The [employer] RealTime SARS-CoV-2 assay is a real-time (rt) reverse transcriptase (RT) polymerase chain reaction (PCR) test intended for the [employer] system. The SARS-CoV-2 primer and probe sets are designed to detect RNA from SARS-CoV-2 in nasopharyngeal (SALES RECORD CLERK) and oropharyngeal (OP) swabs from patients with [...] The above 1 analytes were performed by [address] [place] [address] SARS-CoV-2, [facility], [place].NASOPHARYNGEAL SWABGreen Cross Hospital, KYBasic Metabolic Panelon [id number] gap [Moles/Vol]13 mmol/L9 - 17 mmol/L [facility], KYBun/Cre RatioNOT REPORTEDGreen Cross Hospital, KYCalcium [Mass/Vol]9.0 mg/dL8.6 - 10.4 mg/dLGreen Cross Hospital, KYChloride [Moles/Vol]104 mmol/L98 - 107 mmol/LMercy Health- [place], KYCO2 [Moles/Vol]24 mmol/L20 - 31 mmol/L [facility], KYCreatinine [Mass/Vol]0.82 mg/dL0.5 - 0.9 mg/dLGreen Cross Hospital, KYGFR >60>60 mL/minSt. John Of God Hospital [place], KYGFR Non->60>60 mL/minGreen Cross Hospital, KYGFR/1.73 sq M predicted among non- blacks MDRD (S/P/Bld) [Vol rate/Area]NOT REPORTEDGreen [facility], KYGFR/1.73 sq M predicted among non-blacks MDRD (S/P/Bld) [Vol rate/Area][facility], [place] Comment on above:Average GFR for 60-69 years old: 85 mL/min/1.73sq m Chronic Kidney Disease: <60 mL/min/1.73sq m Kidney failure: <15 mL/min/1.73sq m eGFR calculated using average adult body mass. Additional eGFR calculator available at: http://www.[employer]/multiple_crcl_2011.htm Glucose [Mass/Vol]113 mg/mAOjzb67 - 99 mg/dLGreen Cross Hospital, KYInterpretation and review of laboratory resultsAbnormalGreen Cross Hospital, KYPotassium [Moles/Vol]4.8 mmol/L3.7 - 5.3 mmol/LMMemorial Hospital, KYSodium [Moles/Vol]141 mmol/L135 - 144 mmol/LMMemorial Hospital, KYUrea nitrogen [Mass/Vol]15 mg/dL8 - 23 mg/dLGreen Cross Hospital, KYCBCon [id number] distribution width (RBC) [Ratio]18.5 %High11.8 - 14.4 %[facility], KYHematocrit (Bld) [Volume fraction]43.0 %36.3 - 47.1 %[facility], KYHemoglobin (Bld) [Mass/Vol]13.4 g/dL11.9 - 15.1 g/dLGreen Cross Hospital, KYInterpretation and review of laboratory resultsAbnormBrown Memorial Hospital, KYMCH (RBC) [Entitic mass]27.4 pg25.2 - 33.5 pg [facility] RehabilitationHC (RBC) [Mass/Vol]31.2 g/dL28.4 - 34.8 g/dLCleveland Clinic Children's Hospital for RehabilitationV (RBC) [Entitic vol]87.9 fL82.6 - 102.9 fLWatersmeet, KYPlatelet mean volume (Bld) [Entitic vol]9.3 fL8.1 - 13.5 fLGreen Cross Hospital, CAPlatelets (Bld) [#/Vol]262 10*3/uLGreen Cross Hospital, CARBC (Bld) [#/Vol]4.89 10*6/uL3.95 - 5.11 m/[facility], CAWBC (Bld) [#/Vol]12.0 10*3/uLAvita Health [facility], CAWBC (Bld) [#/Vol]0.0 10*3/uL0.0 per 100 WBCWatersmeet, KYEcho 2D w doppler w color completeon [id number] [facility] Transthoracic Echocardiography Report (TTE) Patient Name SHER Date of Study 09/03/2019 JONATAN C Date of 1960 Gender Female Age 59 year(s) Race Room Number Height: 61 inch, 154.94 cm Corporate ID [id number] Weight: 187 pounds, 84.8 kg # Patient Acct [id number] BSA: 1.84 m^2 BMI: 35.33 # kg/m^2 MR # [id number] Leather Stretcher Fátima Adame Interpreting Physician Josef Brooks Fellow Referring Nurse Practitioner Interpreting Referring Physician Josef Brooks Fellow Type of Study TTE procedure:2D Echocardiogram, M-Mode, Doppler, Color Doppler. Procedure Date Date: 09/03/2019 Start: 09:34 AM Study Location: [facility] Indications:Coronary Atherosclerosis. History / Tech. [...] seen. Signature Vee ctronically signed by Fátima Adame(Leather Stretcher) on 09/03/2019 10:00 AM 05:15 PM FINDINGS [...] Lateral Wall E' velocity:0.10 m/s Lateral Wall E/E':8.4[facility], [place], [place] Incoming Cardio Results From [facility]/[employer] ([employer]) - 09/03/2019 5:15 PM EDT [facility] Transthoracic Echocardiography Report (TTE) Patient Name SHER Date of Study 09/03/2019 JONATAN C Date of 1960 Gender Female Age 59 year(s) Race Room Number Height: 61 inch, 154.94 cm Corporate ID [id number] Weight: 187 pounds, 84.8 kg # Patient Acct [id number] BSA: 1.84 m^2 BMI: 35.33 # kg/m^2 MR # [id number] Leather Stretcher Fátima Adame Interpreting Physician Josef Brooks Fellow Referring Nurse Practitioner Interpreting Referring Physician Josef Brooks Type of Study TTE procedure:2D Echocardiogram, M-Mode, Doppler, Color Doppler. Procedure Date Date: 09/03/2019 Start: 09:34 AM Study Location: [facility] Indications:Coronary Atherosclerosis. History / Tech. [...] Lateral Wall E' velocity:0.10 m/s Lateral Wall E/E':8.4[facility], [facility] Metabolic Panel w/ Reflex to MGon [id number] gap [Moles/Vol]14 mmol/L9 - 17 mmol/[facility], [place] Bun/Cre RatioNOT REPORTEDGreen Cross Hospital, KYCalcium [Mass/Vol]9.3 mg/dL8.6 - 10.4 mg/dLGreen Cross Hospital, KYChloride [Moles/Vol]99 mmol/L98 - 107 mmol/[facility], KYCO2 [Moles/Vol]27 mmol/L20 - 31 mmol/[facility], [place] Creatinine [Mass/Vol]0.37 mg/dLLow0.5 - 0.9 mg/dLGreen Cross Hospital, KYGFR >60>60 mL/minGreen Cross Hospital, KYGFR Non->60>60 mL/min [facility], KYGFR/1.73 sq M predicted among non-blacks MDRD (S/P/Bld) [Vol rate/Area][facility], CAComment on above:Average GFR for 50-59 years old: 93 mL/min/1.73sq m Chronic Kidney Disease: <60 mL/min/1.73sq m Kidney failure: <15 mL/min/1.73sq m eGFR calculated using average adult body mass. Additional eGFR calculator available at: http://www.[employer]/multiple_crcl_2012.htm GFR/1.73 sq M predicted among non-blacks MDRD (S/P/Bld) [Vol rate/Area]NOT REPORTEDGreen [facility], CAGlucose [Mass/Vol]144 mg/tTGtzt72 - 99 mg/dLGreen Cross Hospital, CAInterpretation and review of laboratory resultsAbnoMiami Valley Hospital, KYPotassium [Moles/Vol]3.2 mmol/LLow3.7 - 5.3 mmol/LMMemorial Hospital, KYSodium [Moles/Vol]140 mmol/L135 - 144 mmol/LMMemorial Hospital, KYUrea nitrogen [Mass/Vol]20 mg/dL6 - 20 mg/dLGreen Cross Hospital, KYMagnesiumon [id number] [Mass/Vol]2.0 mg/dL1.6 - 2.6 mg/dLGreen Cross Hospital, CAPOC Glucose Fingerstickon 23-33-8985Uoaohzz [Mass/Vol]233 mg/wFJfjr98 - 105 mg/dL [facility], CAInterpretation and review of laboratory resultsAbnoMiami Valley Hospital, KYGlucose [Mass/Vol]175 mg/eLNwsp98 - 105 mg/dLGreen Cross Hospital, [place] Interpretation and review of laboratory resultsAbnoMiami Valley Hospital, CACBC auto differentialon [id number] (Bld) [#/Vol]0.00 10*3/[facility], KYBasophils/100 WBC (Bld)0 %0 - 2 %[facility], CADifferential TypeNOT REPORTEDGreen Cross Hospital, KYEosinophils (Bld) [#/Vol]0.00 10*3/[facility], CAEosinophils/100 WBC (Bld)0 %Low1 - 4 %[facility], CAErythrocyte distribution width (RBC) [Ratio]15.3 %High11.8 - 14.4 %[facility], [place] Hematocrit (Bld) [Volume fraction]52.0 %High36.3 - 47.1 %[facility], [place] Hemoglobin (Bld) [Mass/Vol]16.0 g/tGAhnw84.9 - 15.1 g/dLPomerene Hospital- [place], [place] Immature granulocytes (Bld) [#/Vol]0.00 10*3/uLPomerene Hospital- [place], CARLOSImmature granulocytes (Bld) [#/Vol]0 %0[facility]- [place], KYInterpretation and review of laboratory resultsAbnormalGreen Cross Hospital, KYLymphocytes (Bld) [#/Vol]1.92 10*3/uLPomerene Hospital- [place], KYLymphocytes/100 WBC (Bld)17 %Low24 - 44 %[facility]- [place], KYMCH (RBC) [Entitic mass]27.0 pg25.2 - 33.5 pgPomerene Hospital- [place], [place] MCHC (RBC) [Mass/Vol]30.8 g/dL28.4 - 34.8 g/dLPomerene Hospital- [place], CARLOSMCV (RBC) [Entitic vol]87.7 fL82.6 - 102.9 fLGreen Cross Hospital, CARLOSMonocytes (Bld) [#/Vol] 1.02 10*3/uLClinton Memorial Hospital- [place], KYMonocytes/100 WBC (Bld)9 %High1 - 7 %[facility], CARLOSMorphology Emmett (Bld) [Interp]ANISOCYTOSIS PRESENTPomerene Hospital- [place], CARLOSPlatelet mean volume (Bld) [Entitic vol]9.6 fL8.1 - 13.5 fLPomerene Hospital- [place], KYPlatelets (Bld) [#/Vol]NOT REPORTEDGreen [facility], KYPlatelets (Bld) [#/Vol] 283 10*3/uLPomerene Hospital- [place], KYRBC (Bld) [#/Vol]5.93 10*6/uLHigh3.95 - 5.11 m/uL [facility]- [place], KYRBC morphology finding Nom (Bld)NOT REPORTEDGreen [facility], CARLOSSegmented neutrophils/100 WBC (Bld)74 %High36 - 66 %[facility], [place] Segs Absolute8.36HighPomerene Hospital- [place], KYWBC (Bld) [#/Vol]11.3 10*3/uLPomerene Hospital- [place], KYWBC (Bld) [#/Vol]0.0 10*3/uL0.0 per 100 WBCGreen Cross Hospital, KYWBC MorphologyNOT REPORTEDGreen Cross Hospital, KYCulture, Blood 2on [id number] NO GROWTH 6 DAYSGreen Cross Hospital, CASpecial RequestsNO INFO GIVENGreen Cross Hospital, KYSpecimen Description.BLOODGreen Cross Hospital, CAPO Glucose Fingerstickon 57-64-3870Takozvi [Mass/Vol]149 mg/mKPgmy92 - 105 mg/dLGreen Cross Hospital, [place] Interpretation and review of laboratory resultsAbnoMiami Valley Hospital, [place] Glucose [Mass/Vol]235 mg/uOYspl57 - 105 mg/dLGreen Cross Hospital, CAInterpretation and review of laboratory resultsAbnoMiami Valley Hospital, CAGlucose [Mass/Vol] 196 mg/qUFkoa45 - 105 mg/dLGreen Cross Hospital, KYInterpretation and review of laboratory resultsAbnoMiami Valley Hospital, KYGlucose [Mass/Vol]143 mg/aMCqkv61 - 105 mg/dLGreen Cross Hospital, KYInterpretation and review of laboratory results AbnormalGreen Cross Hospital, CABasic Metabolic Panel w/ Reflex to MGon 07-23-2019 Anion gap [Moles/Vol]13 mmol/L9 - 17 mmol/LMMemorial Hospital, KYBun/Cre RatioNOT REPORTEDGreen [facility], KYCalcium [Mass/Vol]8.9 mg/dL8.6 - 10.4 mg/dLGreen Cross Hospital, KYChloride [Moles/Vol]101 mmol/L98 - 107 mmol/LMMemorial Hospital, [place] CO2 [Moles/Vol]25 mmol/L20 - 31 mmol/LMMemorial Hospital, KYCreatinine [Mass/Vol] 0.35 mg/dLLow0.5 - 0.9 mg/dLGreen Cross Hospital, KYGFR >60>60 mL/minGreen Cross Hospital, KYGFR Non->60>60 mL/minGreen Cross Hospital, KYGFR/1.73 sq M predicted among non-blacks MDRD (S/P/Bld) [Vol rate/Area][facility], KYComment on above:Average GFR for 50-59 years old: 93 mL/min/1.73sq m Chronic Kidney Disease: <60 mL/min/1.73sq m Kidney failure: <15 mL/min/1.73sq m eGFR calculated using average adult body mass. Additional eGFR calculator available at: http://www.[employer]/multiple_crcl_2012.htm GFR/1.73 sq M predicted among non-blacks MDRD (S/P/Bld) [Vol rate/Area]NOT REPORTEDGreen [facility], KYGlucose [Mass/Vol]144 mg/tDVmmu06 - 99 mg/dLGreen Cross Hospital, KYInterpretation and review of laboratory resultsAbnoMiami Valley Hospital, KYPotassium [Moles/Vol]4.1 mmol/L3.7 - 5.3 mmol/LMMemorial Hospital, KYSodium [Moles/Vol]139 mmol/L135 - 144 mmol/[facility], KYUrea nitrogen [Mass/Vol]30 mg/dLHigh6 - 20 mg/dLGreen Cross Hospital, KYPOC Glucose Fingerstickon [id number] [Mass/Vol]230 mg/iICesj59 - 105 mg/dLGreen Cross Hospital, [place] Interpretation and review of laboratory resultsAbnoMiami Valley Hospital, [place] Glucose [Mass/Vol]200 mg/nNHegi85 - 105 mg/dLGreen Cross Hospital, KYInterpretation and review of laboratory resultsAbnoMiami Valley Hospital, KYGlucose [Mass/Vol] 184 mg/pOGyke34 - 105 mg/dLGreen Cross Hospital, CAInterpretation and review of laboratory resultsAbnoMiami Valley Hospital, CABasic Metabolic Panel w/ Reflex to MGon [id number] gap [Moles/Vol]15 mmol/L9 - 17 mmol/LMMemorial Hospital, [place] Bun/Cre RatioNOT REPORTEDGreen [facility], KYCalcium [Mass/Vol]8.7 mg/dL8.6 - 10.4 mg/dLGreen Cross Hospital, KYChloride [Moles/Vol]103 mmol/L98 - 107 mmol/LMMemorial Hospital, KYCO2 [Moles/Vol]23 mmol/L20 - 31 mmol/LMKettering Health [facility]- [place], [place] Creatinine [Mass/Vol]0.47 mg/dLLow0.5 - 0.9 mg/dLGreen Cross Hospital, KYGFR >60>60 mL/minGreen Cross Hospital, KYGFR Non->60>60 mL/min [facility], KYGFR/1.73 sq M predicted among non-blacks MDRD (S/P/Bld) [Vol rate/Area]NOT REPORTED[facility], KYGFR/1.73 sq M predicted among non- blacks MDRD (S/P/Bld) [Vol rate/Area][facility], KYComment on above: Average GFR for 50-59 years old: 93 mL/min/1.73sq m Chronic Kidney Disease: <60 mL/min/1.73sq m Kidney failure: <15 mL/min/1.73sq m eGFR calculated using average adult body mass. Additional eGFR calculator available at: http://www.[employer]/multiple_crcl_2012.htm Glucose [Mass/Vol]150 mg/sDBbst12 - 99 mg/dLGreen Cross Hospital, KYInterpretation and review of laboratory resultsAbnormalGreen Cross Hospital, KYPotassium [Moles/Vol]4.1 mmol/L3.7 - 5.3 mmol/[facility], KYSodium [Moles/Vol]141 mmol/L135 - 144 mmol/[facility], KYUrea nitrogen [Mass/Vol]29 mg/dLHigh6 - 20 mg/dLGreen Cross Hospital, KYCBC auto differentialon [id number] (Bld) [#/Vol]10*3/[facility], KYBasophils/100 WBC (Bld)0 %0 - 2 %[facility], KYDifferential TypeNOT REPORTEDGreen [facility], KYEosinophils (Bld) [#/Vol]10*3/uLGreen Cross Hospital, KYEosinophils/100 WBC (Bld)0 %Low1 - 4 %[facility], CAErythrocyte distribution width (RBC) [Ratio]15.9 %High11.8 - 14.4 %[facility], CAHematocrit (Bld) [Volume fraction]48.9 %High36.3 - 47.1 % [facility], CAHemoglobin (Bld) [Mass/Vol]14.9 g/dL11.9 - 15.1 g/dLGreen Cross Hospital, CAImmature granulocytes (Bld) [#/Vol]1 %Cske9QqfzvGreen Cross Hospital, [place] Immature granulocytes (Bld) [#/Vol]0.06 10*3/uLPomerene Hospital- [place], [place] Interpretation and review of laboratory resultsAbnormalGreen Cross Hospital, [place] Lymphocytes (Bld) [#/Vol]1.16 10*3/[facility] [place], CALymphocytes/100 WBC (Bld)10 %Low24 - 43 %[facility], CAMCH (RBC) [Entitic mass]27.8 pg25.2 - 33.5 pgGreen Cross Hospital, CAMCHC (RBC) [Mass/Vol]30.5 g/dL28.4 - 34.8 g/dLGreen Cross Hospital, CAMCV (RBC) [Entitic vol]91.2 fL82.6 - 102.9 fLGreen Cross Hospital, [place] Monocytes (Bld) [#/Vol]1.44 10*3/uLHighGreen Cross Hospital, CAMonocytes/100 WBC (Bld)12 %3 - 12 %[facility], CAPlatelet mean volume (Bld) [Entitic vol]9.7 fL8.1 - 13.5 fLGreen Cross Hospital, KYPlatelets (Bld) [#/Vol]257 10*3/[facility]- [place], KYPlatelets (Bld) [#/Vol]NOT REPORTED[facility], CARBC (Bld) [#/Vol]5.36 10*6/uLHigh3.95 - 5.11 m/uLGreen Cross Hospital, CARBC morphology finding Nom (Bld)ANISOCYTOSIS PRESENTGreen Cross Hospital, CASegmented neutrophils/100 WBC (Bld)78 %High36 - 65 %[facility], KYSegs Absolute9.44 HighGreen Cross Hospital, CAWBC (Bld) [#/Vol]12.1 10*3/uLAvita Health [facility], CAWBC (Bld) [#/Vol]0.0 10*3/uL0.0 per 100 WBCGreen Cross Hospital, KYWBC MorphologyNOT REPORTEDGreen [facility], KYMYCOPLASMA PNEUMONIAE ANTIBODY, IGMon 07-22-2019 Mycoplasma pneumo IgM0.85<0.91[facility], KYComment on above: Reference Range: <=0.90 Negative 0.91-1.09 Equivocal >=1.10 Positive POC Glucose Fingerstickon 56-25-2736Qafwrhy [Mass/Vol]244 mg/xERtbt19 - 105 mg/dLGreen Cross Hospital, KYInterpretation and review of laboratory resultsAbnoal [facility], KYGlucose [Mass/Vol]154 mg/hVWtyh29 - 105 mg/dLGreen Cross Hospital, KYInterpretation and review of laboratory resultsAbnoMiami Valley Hospital, KYGlucose [Mass/Vol]209 mg/cNZyim86 - 105 mg/dLGreen [facility], [place] Interpretation and review of laboratory resultsAbUniversity [facility]als [facility], [place] Glucose [Mass/Vol]158 mg/dVSbof55 - 105 mg/dLGreen Cross Hospital, KYInterpretation and review of laboratory resultsAbnoMiami Valley Hospital, KYBasic Metabolic Panel w/ Reflex to MGon [id number] gap [Moles/Vol]12 mmol/L9 - 17 mmol/L [facility], KYBun/Cre RatioNOT REPORTEDGreen [facility], KYCalcium [Mass/Vol]8.8 mg/dL8.6 - 10.4 mg/dLGreen Cross Hospital, KYChloride [Moles/Vol]97 mmol/LLow98 - 107 mmol/LMMemorial Hospital, KYCO2 [Moles/Vol]29 mmol/L20 - 31 mmol/LMMemorial Hospital, KYCreatinine [Mass/Vol]0.5 mg/dL0.5 - 0.9 mg/dLPomerene Hospital- [place], KYGFR >60>60 mL/minPomerene Hospital- [place], KYGFR Non- >60>60 mL/minPomerene Hospital- [place], KYGFR/1.73 sq M predicted among non-blacks MDRD (S/P/Bld) [Vol rate/Area]NOT REPORTEDPomerene Hospital- [place], [place] GFR/1.73 sq M predicted among non-blacks MDRD (S/P/Bld) [Vol rate/Area][facility], KYComment on above:Average GFR for 50-59 years old: 93 mL/min/1.73sq m Chronic Kidney Disease: <60 mL/min/1.73sq m Kidney failure: <15 mL/min/1.73sq m eGFR calculated using average adult body mass. Additional eGFR calculator available at: http://www.[employer]/multiple_crcl_2011.htm Glucose [Mass/Vol]169 mg/jVXdyz64 - 99 mg/dLGreen Cross Hospital, KYInterpretation and review of laboratory resultsAbnormalPomerene Hospital- [place], KYPotassium [Moles/Vol]3.6 mmol/LLow3.7 - 5.3 mmol/LMKettering Health [facility]- [place], KYSodium [Moles/Vol] 138 mmol/L135 - 144 mmol/LMKettering Health [facility]- [place], KYUrea nitrogen [Mass/Vol]33 mg/dL High6 - 20 mg/dLGreen Cross Hospital, KYCB auto differentialon [id number] (Bld) [#/Vol]0.00 10*3/uLPomerene Hospital- [place], KYBasophils/100 WBC (Bld)0 %0 - 2 % [facility], KYDifferential TypeNOT REPORTEDPomerene Hospital- [place], KYEosinophils (Bld) [#/Vol]0.00 10*3/uLPomerene Hospital- [place], KYEosinophils/100 WBC (Bld)0 %Low1 - 4 %[facility]- [place], KYErythrocyte distribution width (RBC) [Ratio]15.7 %High 11.8 - 14.4 %[facility]- [place], KYHematocrit (Bld) [Volume fraction]45.3 %36.3 - 47.1 %[place], KYHemoglobin (Bld) [Mass/Vol]14.0 g/dL11.9 - 15.1 g/dL [facility], CAImmature granulocytes (Bld) [#/Vol]0 %0[facility], [place] Immature granulocytes (Bld) [#/Vol]0.00 10*3/uLGreen Cross Hospital, [place] Interpretation and review of laboratory resultsAbnormalGreen Cross Hospital, [place] Lymphocytes (Bld) [#/Vol]0.44 10*3/uLLowGreen Cross Hospital, CALymphocytes/100 WBC (Bld)4 %Low24 - 44 %[facility], CAMCH (RBC) [Entitic mass]27.0 pg25.2 - 33.5 pgWatersmeet, KYMCHC (RBC) [Mass/Vol]30.9 g/dL28.4 - 34.8 g/dLWatersmeet, KYMCV (RBC) [Entitic vol]87.3 fL82.6 - 102.9 fLWatersmeet, [place] Monocytes (Bld) [#/Vol]0.22 10*3/[facility], CAMonocytes/100 WBC (Bld)2 %1 - 7 %[place], KYMorphology Emmett (Bld) [Interp]ANISOCYTOSIS PRESENT [place], KYPlatelet mean volume (Bld) [Entitic vol]9.4 fL8.1 - 13.5 fL [facility], CAPlatelets (Bld) [#/Vol]NOT REPORTEDW[place], [place] Platelets (Bld) [#/Vol]270 10*3/uLGreen Cross Hospital, CARBC (Bld) [#/Vol]5.19 10*6/uLHigh3.95 - 5.11 m/[facility], CARBC morphology finding Nom (Bld) NOT REPORTEDGreen [facility], CASegmented neutrophils/100 WBC (Bld)94 %High36 - 66 %[facility], CASegs Cimjvmld06.24HighGreen Cross Hospital, CAWBC (Bld) [#/Vol]10.9 10*3/uLGreen Cross Hospital, KINDR[facility] HOSPITALBC (Bld) [#/Vol]0.0 10*3/uL0.0 per 100 WBCGreen Cross Hospital, CAWBC MorphologyNOT REPORTEDGreen Cross Hospital, CAEKG 12 Lead on 40-79-2104Rbhfvm Shnd18WLUPenzmMemorial Hospital, CAP Yewq89teycebjBfdtpThe [facility], CAP-R Plisyyde984 [facility], KYQ-T Mcpwuxeh220 [facility], KYQRS Xshnufhu02 [facility], CAQTc Calculation (Bazett)429 [facility], CAR Aurora-82degrThe [facility] of [facility], KYT Dtio76hfndzfmYllomThe [facility] of [facility], CAVentricular Lamw03WWPStjveMemorial Hospital, KYEdi, Mhpn Incoming Ekg Results From [facility] - 07/21/2019 1:17 PM EDT Normal sinus rhythm Biatrial enlargement Indeterminate axis Pulmonary disease pattern Incomplete right bundle branch block Cannot rule out Inferior infarct , age undetermined Abnormal ECG No previous ECGs availableGreen Cross Hospital, KYNormal sinus rhythm Biatrial enlargement Indeterminate axis Pulmonary disease pattern Incomplete right bundle branch block Cannot rule out Inferior infarct , age undetermined Abnormal ECG No previousECGs availableGreen Cross Hospital, CAHEMOGLOBIN AND HEMATOCRIT, BLOODon 05-60-6170Rebjdjuysk (Bld) [Volume fraction]47.3 %High36.3 - 47.1 %[place], KYHemoglobin (Bld) [Mass/Vol]14.6 g/dL11.9 - 15.1 g/dLGreen Cross Hospital, [place] Interpretation and review of laboratory resultsAbnormalGreen Cross Hospital, CAMRSA DNA Probe, Nasalon [id number], DNA, NasalNEGATIVE: MRSA DNA not detected by nucleic acid amplification.NEGATIVE: MRSA DNA not detected by nucleic acid amplificatiWatersmeet, KYComment on above: Results should be used as an adjunct to nosocomial control efforts to identify patients needing enhanced precautions. The test is not intended to identify patients with staphylococcal infections. Results should not be used to guide or monitor treatment for MRSA infections. Specimen Description.NASAL SWABGreen Cross Hospital, CAPOC Glucose Fingerstickon [id number] [Mass/Vol]191 mg/iQOioq69 - 105 mg/dLGreen Cross Hospital, [place] Interpretation and review of laboratory resultsAbnoMiami Valley Hospital, [place] Glucose [Mass/Vol]152 mg/xBFllf34 - 105 mg/dLGreen Cross Hospital, KYInterpretation and review of laboratory resultsAbnoMiami Valley Hospital, KYGlucose [Mass/Vol] 207 mg/jJIhvp89 - 105 mg/dLGreen Cross Hospital, KYInterpretation and review of laboratory resultsAbnormBrown Memorial Hospital, KYGlucose [Mass/Vol]160 mg/rTHlwg75 - 105 mg/dLGreen Cross Hospital, KYInterpretation and review of laboratory results AbnormalGreen Cross Hospital, CABasic Metabolic Panel w/ Reflex to MGon 07-20-2019 Anion gap [Moles/Vol]12 mmol/L9 - 17 mmol/LMMemorial Hospital, KYBun/Cre RatioNOT REPORTEDGreen [facility], KYCalcium [Mass/Vol]8.4 mg/dLLow8.6 - 10.4 mg/dLGreen Cross Hospital, KYChloride [Moles/Vol]98 mmol/L98 - 107 mmol/[facility], [place] CO2 [Moles/Vol]26 mmol/L20 - 31 mmol/[facility], KYCreatinine [Mass/Vol] 0.67 mg/dL0.5 - 0.9 mg/dLGreen Cross Hospital, KYGFR >60>60 mL/min [facility], KYGFR Non->60>60 mL/minGreen Cross Hospital, [place] GFR/1.73 sq M predicted among non-blacks MDRD (S/P/Bld) [Vol rate/Area]NOT REPORTEDGreen Cross Hospital, KYGFR/1.73 sq M predicted among non-blacks MDRD (S/P/Bld) [Vol rate/Area][facility], KYComment on above:Average GFR for 50-59 years old: 93 mL/min/1.73sq m Chronic Kidney Disease: <60 mL/min/1.73sq m Kidney failure: <15 mL/min/1.73sq m eGFR calculated using average adult body mass. Additional eGFR calculator available at: http://www.[employer]/multiple_crcl_2011.htm Glucose [Mass/Vol]190 mg/jZZehd58 - 99 mg/dLPomerene Hospital- [place], KYPotassium [Moles/Vol]3.9 mmol/L3.7 - 5.3 mmol/LMKettering Health [facility]- [place], KYSodium [Moles/Vol]136 mmol/L135 - 144 mmol/LMKettering Health [facility]- [place], KYUrea nitrogen [Mass/Vol]30 mg/dLHigh6 - 20 mg/dLSt. John Of God [facility] [place], KYCBC auto differentialon [id number] (Bld) [#/Vol]0.00 10*3/uLPomerene Hospital- [place], KYBasophils/100 WBC (Bld)0 %0 - 2 %[facility], KYDifferential TypeNOT REPORTEDSt. John Of God Hospital [place], KYEosinophils (Bld) [#/Vol]0.00 10*3/[facility] [place], KYEosinophils/100 WBC (Bld)0 %Low1 - 4 % [facility] [place], KYErythrocyte distribution width (RBC) [Ratio]15.5 %High11.8 - 14.4 %[facility] [place], KYHematocrit (Bld) [Volume fraction]44.6 %36.3 - 47.1 % [facility], KYHemoglobin (Bld) [Mass/Vol]13.8 g/dL11.9 - 15.1 g/dLSt. John Of God Hospital [place], KYImmature granulocytes (Bld) [#/Vol]0.00 10*3/[facility]- [place], KYImmature granulocytes (Bld) [#/Vol]0 %0[facility]- [place], KYInterpretation and review of laboratory resultsAbnormalSt. John Of God Hospital [place], KYLymphocytes (Bld) [#/Vol]0.44 10*3/uLLowPomerene Hospital- [place], KYLymphocytes/100 WBC (Bld)4 %Low24 - 44 %[facility]- [place], [facility] (RBC) [Entitic mass]26.9 pg25.2 - 33.5 pgPomerene Hospital- [place], [facility] ENIDHC (RBC) [Mass/Vol]30.9 g/dL28.4 - 34.8 g/dLPomerene Hospital- [place], [facility]IDV (RBC) [Entitic vol]86.9 fL82.6 - 102.9 fLPomerene Hospital- [place], KYMonocytes (Bld) [#/Vol]0.11 10*3/uLPomerene Hospital- [place], CAMonocytes/100 WBC (Bld)1 %1 - 7 %[facility] [place], CAMorphology Emmett (Bld) [Interp]ANISOCYTOSIS PRESENTPomerene Hospital- [place], CAPlatelet mean volume (Bld) [Entitic vol]9.4 fL8.1 - 13.5 fLPomerene Hospital- [place], CAPlatelets (Bld) [#/Vol]NOT REPORTEDPomerene Hospital- [place], CAPlatelets (Bld) [#/Vol] 298 10*3/uLPomerene Hospital- [place], CARBC (Bld) [#/Vol]5.13 10*6/uLHigh3.95 - 5.11 m/uL [facility] [place], CARBC morphology finding Nom (Bld)NOT REPORTEDPomerene Hospital- [place], CASegmented neutrophils/100 WBC (Bld)95 %High36 - 66 %[facility] [place], [place] Segs Vfcgwtlt96.35HighPomerene Hospital- [place], CAWBC (Bld) [#/Vol]10.9 10*3/uLPomerene Hospital- [place], CAWBC (Bld) [#/Vol]0.0 10*3/uL0.0 per 100 WBCAshtabula County [facility]- [place], CAWBC MorphologyNOT REPORTEDPomerene Hospital- [place], CAEK 12 Leadon 17-25-2269Rnxptq Rate67 BPMAshtabula County [facility]- [place], KYP [id number] Health- [place], CAP-R [id number] ms [facility]- [place], CAQ-T Dysrirfr319 [facility]- [place], KYQRS [id number] [facility]- [place], CAQTc Calculation (Ara)431 msMMemorial Hospital, KYR [facility] degreesGreen [facility], KYT [id number] Health- [place], CAVentricular Rate67 BPMGreen Cross Hospital, KYEdi, Mhpn Incoming Ekg Results From [facility] [place] - 07/20/2019 1:04 PM EDT Normal sinus rhythm Possible Left atrial enlargement Left axis deviation Pulmonary disease pattern Abnormal ECG When compared with ECG of 24-JUN-2013 16:48, No significant change was foundGreen [facility], [facility]ALTHormal [facility] rhythm Possible Left atrial enlargement Left axis deviation Pulmonary disease pattern Abnormal ECG When compared with ECG of 24-JUN-2013 16:48, No significant change was found [facility], KYOtheron 42-79-9740Lunybkzioaywma and review of laboratory resultsAbUniversity Hospitals Beach[facility], CAPOC Glucose Fingerstickon 14-16-2146Lpcevqj [Mass/Vol]217 mg/cHEtou88 - 105 mg/dLGreen Cross Hospital, CAInterpretation and review of laboratory resultsAbBaltimore, KYGlucose [Mass/Vol]204 mg/hLCsml85 - 105 mg/dLGreen Cross Hospital, CAInterpretation and review of laboratory resultsAbUniversity Hospitals Beachwood [facility], CAGlucose [Mass/Vol]189 mg/cYKdlv50 - 105 mg/dLGreen Cross Hospital, CAInterpretation and review of laboratory results AbnormalGreen Cross Hospital, CAGlucose [Mass/Vol]195 mg/zHCcvw85 - 105 mg/dLGreen Cross Hospital, CAInterpretation and review of laboratory resultsAbBaltimore, KYGlucose [Mass/Vol]199 mg/uDEmmu28 - 105 mg/dLGreen Cross Hospital, [place] Interpretation and review of laboratory resultsAbUniversity Hospitals Beach[facility], [place] TRIGLYCERIDESon 46-90-4514Znxmnpjmxojr [Mass/Vol]224 mg/dLHigh<150[place], KYComment on above: Triglyceride Guidelines: <150 Desirable 150-199 Borderline 200-499 High >499 Very high Based on AHA Guidelines for fasting triglyceride, December 2011. Basic Metabolic Panel w/ Reflex to MGon 91-85-2509Jrjkj gap [Moles/Vol]16 mmol/L 9 - 17 mmol/LMMemorial Hospital, KYBun/Cre RatioNOT REPORTEDMerShriners Hospital for Children- [place], [place] Calcium [Mass/Vol]8.6 mg/dL8.6 - 10.4 mg/dLPomerene Hospital- [place], KYChloride [Moles/Vol]97 mmol/LLow98 - 107 mmol/LMgood [facility]- [place], KYCO2 [Moles/Vol]24 mmol/L20 - 31 mmol/LMgood [facility]aritan [facility]- [place], KYCreatinine [Mass/Vol]0.71 mg/dL0.5 - 0.9 mg/dLPomerene Hospital- [place], KYGFR >60>60 mL/minPomerene Hospital- [place], [place] GFR Non->60>60 mL/minPomerene Hospital- [place], KYGFR/1.73 sq M predicted among non-blacks MDRD (S/P/Bld) [Vol rate/Area]NOT REPORTEDGreen Cross Hospital, [place] GFR/1.73 sq M predicted among non-blacks MDRD (S/P/Bld) [Vol rate/Area][facility], KYComment on above:Average GFR for 50-59 years old: 93 mL/min/1.73sq m Chronic Kidney Disease: <60 mL/min/1.73sq m Kidney failure: <15 mL/min/1.73sq m eGFR calculated using average adult body mass. Additional eGFR calculator available at: http://www.[employer]/multiple_crcl_2012.htm Glucose [Mass/Vol]178 mg/tFUbue89 - 99 mg/dLGreen Cross Hospital, KYPotassium [Moles/Vol]4.0 mmol/L3.7 - 5.3 mmol/LMKettering Health Springfield- [place], KYSodium [Moles/Vol]137 mmol/L135 - 144 mmol/LMgood [facility]aritan [facility]- [place], KYUrea nitrogen [Mass/Vol]23 mg/dLHigh6 - 20 mg/dLPomerene Hospital- [place], KYC-Reactive Proteinon 40-50-1072MYW [Mass/Vol]55.6 mg/LHigh0 - 5 mg/LMgood samaritan hospital [facility]- [place], KYCBC auto differentialon 07-19-2019 Basophils (Bld) [#/Vol]0.00 10*3/uLPomerene Hospital- [place], KYBasophils/100 WBC (Bld)0 %0 - 2 %[facility], KYDifferential TypeNOT REPORTEDGreen Cross Hospital, [place] Eosinophils (Bld) [#/Vol]0.00 10*3/[facility] [place], KYEosinophils/100 WBC (Bld)0 %Low1 - 4 %[facility], CAErythrocyte distribution width (RBC) [Ratio]15.2 %High11.8 - 14.4 %[facility], KYHematocrit (Bld) [Volume fraction]47.7 %High36.3 - 47.1 %[facility], CARLOSHemoglobin (Bld) [Mass/Vol] 14.6 g/dL11.9 - 15.1 g/dLGreen Cross Hospital, CARLOSImmature granulocytes (Bld) [#/Vol] 0 %0[facility], CARLOSImmature granulocytes (Bld) [#/Vol]0.00 10*3/[facility], CARLOSInterpretation and review of laboratory resultsAbnormalGreen Cross Hospital, CARLOSLymphocytes (Bld) [#/Vol]0.89 10*3/uLLowGreen Cross Hospital, [place] Lymphocytes/100 WBC (Bld)9 %Low24 - 44 %[facility], KYMCH (RBC) [Entitic mass]27.1 pg25.2 - 33.5 pgGreen Cross Hospital, CAMCHC (RBC) [Mass/Vol]30.6 g/dL28.4 - 34.8 g/dLGreen Cross Hospital, CAMCV (RBC) [Entitic vol]88.7 fL82.6 - 102.9 fL [facility], KYMonocytes (Bld) [#/Vol]0.10 10*3/[facility], [place] Monocytes/100 WBC (Bld)1 %1 - 7 %[facility], CAMorphology Emmett (Bld) [Interp]ANISOCYTOSIS PRESENTGreen Cross Hospital, CAPlatelet mean volume (Bld) [Entitic vol]9.5 fL8.1 - 13.5 fLGreen Cross Hospital, KYPlatelets (Bld) [#/Vol]NOT REPORTEDGreen Cross HospitalCARLOSPlatelets (Bld) [#/Vol]307 10*3/uLGreen Cross Hospital CARBC (Bld) [#/Vol]5.38 10*6/uLHigh3.95 - 5.11 m/uLGreen Cross Hospital [facility] morphology finding Nom (Bld)NOT REPORTEDGreen Cross HospitalCARLOSgmented neutrophils/100 WBC (Bld)90 %High36 - 66 %[facility] Cross HospitalCARLOSSegs Absolute8.91 HighGreen Cross Hospital, CARLOSWBC (Bld) [#/Vol]9.9 10*3/uLGreen Cross Hospital, CARLOSWBC (Bld) [#/Vol]0.0 10*3/uL0.0 per 100 WBCGreen Cross Hospital CAWBC MorphologyNOT REPORTEDSt. [facility] Of God [facility] CARLOS GUTIERREZCOVID-1977-06-3022WHQV-CoV-2Not DetectedNot DetectedGreen Cross HospitalCARLOSComment on above: The specimen is NEGATIVE for SARS-CoV-2, the novel coronavirus associated with COVID-19. A negative result does not rule out COVID-19. This test has been authorized by the FDA under an Emergency Use Authorization (EUA) for use by authorized laboratories. Fact sheet for Healthcare Providers: https://www.fda.gov/media/692734/download Fact sheet for Patients: https://www.fda.gov/media/803880/download METHODOLOGY: RT-PCR SARS-CoV-2, PCRGreen Cross Hospital [facility].NASOPHARYNGEAL SWABGreen Cross HospitalCARLOSCulture, Blood 1on 53-97-7022GjotdkcSF SAMPLE RECEIVEDCleveland Clinic Lutheran Hospital CARLOS Special RequestsNOT REPORTEDGreen Cross HospitalCARLOSSpecimen Description.BLOODGreen Cross HospitalCARLOSLactic acid, plasmaon 20-54-2654Kzaqhcx [Moles/Vol]NOT REPORTED mmol/LMercHeritage Hospital, CARLOSLactic Acid, Whole Blood2.1 mmol/L0.7 - 2.1 mmol/L [facility], CARLOSOtheron 54-23-9992Ducvwpyeetrzuk and review of laboratory resultsAbnormalGreen Cross Hospital, CAPO Glucose Fingerstickon 10-36-5664Nuxltuv [Mass/Vol]208 mg/lTEhsv69 - 105 mg/dLGreen Cross Hospital, CAInterpretation and review of laboratory resultsAbnormalGreen Cross Hospital, CAGlucose [Mass/Vol]188 mg/eOBgcz64 - 105 mg/dLGreen Cross Hospital, CAInterpretation and review of laboratory resultsAbnormalGreen Cross Hospital, CAGlucose [Mass/Vol]181 mg/cWOzmv85 - 105 mg/dLGreen Cross Hospital, CAInterpretation and review of laboratory results AbnormalGreen Cross Hospital, CARespiratory Virus PCR Panelon 51-74-0373Nhzrrzhrjz PCRNot DetectedNot DetectedGreen Cross Hospital, CAB Pertussis by PCRNot DetectedNot DetectedGreen Cross Hospital, CABordetella ParapertussisNot DetectedNot Detected [facility], CAChlamydia pneumoniae By PCRNot DetectedNot DetectedGreen Cross Hospital, CACoronavirus 229E PCRNot DetectedNot DetectedGreen Cross Hospital, [place] Comment on above:Coronoviruses detected by this panel are those associated with the clinical common cold. This test will not detect 9972-QGVD-JKV-2 or other novel coronaviruses. Coronavirus HKU1 PCRNot DetectedNot DetectedGreen Cross Hospital, CAComment on above:Coronoviruses detected by this panel are those associated with the clinical common cold. This test will not detect 3244-NWJY-KEY-2 or other novel coronaviruses. Coronavirus NL63 PCRNot DetectedNot DetectedW[place], KYComment on above:Coronoviruses detected by this panel are those associated with the clinical common cold. This test will not detect 0499-MUVN-YWG-2 or other novel coronaviruses. Coronavirus OC43 PCRNot DetectedNot DetectedGreen Cross Hospital, CAComment on above:Coronoviruses detected by this panel are those associated with the clinical common cold. This test will not detect 5845-IWSS-KUV-2 or other novel coronaviruses. Human Metapneumovirus PCRNot DetectedNot DetectedGreen Cross Hospital, CAInfluenza A by PCRNot DetectedNot DetectedGreen Cross Hospital, CAInfluenza A H1 (2009) PCRNOT REPORTEDNot DetectedGreen Cross Hospital, KYInfluenza A H1 PCRNOT REPORTEDNot DetectedMercy [...] [place] Rhino/Enterovirus PCRNot DetectedNot DetectedMercy Health- [place], CASpecimen Description.NASOPHARYNGEAL SWABMercy Health- [place], [facility] with Reflexon 07-19-2019 TSH Qn0.95 m[IU]/LMercy Health- [place], KYAnion Gap (Calc) POCon 46-67-6192Igzdh gap [Moles/Vol]10 mmol/L7 - 16 mmol/LMercy Health- [place], CAArterial Blood Gas, POCon 81-30-7951Fcnxs TestNOT REPORTEDMercy Health- [place], CAaPTT Coag (Bld) [Time]NOT REPORTEDMercy Health- [place], [id number] REPORTEDMercy [facility]- [place], KYModeNOT REPORTED [facility]- [place], KYNegative Base Excess, ArtNOT REPORTEDMercy Health- [place], CAO2 Device/Flow/%NOT REPORTEDMercy Health- [place], KYOxygen saturation in Blood92 %Low94 - 98 %[facility]- [place], CAPOC KDQ242.9 mmol/LHigh21 - 28 mmol/LMercy Health- [place], CAPO rOB241.4[facility]- [place], [facility] pCO2 TempNOT REPORTEDmm HgMercy Health- [place], CAPO pH7.455HighMercy Health- [place], CAPO pH TempNOT REPORTEDMercy Health- [place], [facility] PO261.7LowMercy Health- [place], [facility] pO2 TempNOT REPORTEDmm Hg [facility]- [place], CAPositive Base Excess, Ftr8BqqsXsoxp Health- [place], KYSale SiteNOT REPORTEDMercy Health- [place], KYTCO2 (calc), Art33 mmol/LHigh22 - 29 mmol/L [facility]- [place], KYAllen TestNOT REPORTEDMercy Health- [place], KYaPTT Coag (Bld) [Time]NOT REPORTEDMercy Health- [place], CWHUS0MMS REPORTEDMercy [facility]- [place], KYMode NOT REPORTEDMer[facility]- [place], KYNegative Base Excess, ArtNOT REPORTEDMercy Health- [place], KYO2 Device/Flow/%NOT REPORTEDMercy [facility]- [place], KYOxygen saturation in Blood99 %High94 - 98 %[facility]- [place], KYPOC HDB327.1 mmol/LHigh21 - 28 mmol/LMercy Health- [place], KYPOC kWN243.9HighMercy Health- [place], CAPOC pCO2 TempNOT REPORTEDmm HgMercy Health- [place], KYPOC pH7.353[facility]- [place], KYPOC pH TempNOT REPORTEDMercy Health- [place], KYPOC ZS9626.5HighMercy Health- [place], CAPOC pO2 TempNOT REPORTEDmm HgMercy Health- [place], KYPositive Base Excess, Yhb0JalvUhggc Health- [place], [facility] SiteNOT REPORTEDMercy Health- [place], KYTCO2 (calc), Art38 [...] predicted among non-blacks MDRD (S/P/Bld) [Vol rate/Area] [facility], CAComment on above:Average GFR for 50-59 years old: 93 mL/min/1.73sq m Chronic Kidney Disease: <60 mL/min/1.73sq m Kidney failure: <15 mL/min/1.73sq m eGFR calculated using average adult body mass. Additional eGFR calculator available at: http://www.[employer]/multiple_crcl_2012.htm GFR/1.73 sq M predicted among non-blacks MDRD (S/P/Bld) [Vol rate/Area]NOT REPORTEDGreen [facility] Hospital, CAGlucose [Mass/Vol]149 mg/lUVnwk41 - 99 mg/dLGreen Cross Hospital, CAInterpretation and review of laboratory resultsAbnoMiami Valley Hospital, CAPotassium [Moles/Vol]3.4 mmol/LLow3.7 - 5.3 mmol/[facility], KYComment on above:ADDED ONSodium [Moles/Vol]146 mmol/CDigw786 - 144 mmol/L [facility], CAUrea nitrogen [Mass/Vol]12 mg/dL6 - 20 mg/dLGreen Cross Hospital, CABeta-Hydroxybutyrateon 01-83-3582Aslj-Hydroxybutyrate0.51 mmol/LHigh0.02 - 0.27 mmol/[facility], CAInterpretation and review of laboratory results AbnormalGreen Cross Hospital, CACALCIUM, IONIC (POC)on 17-69-8828UIX Ionized Calcium 1.17 mmol/L1.15 - 1.33 mmol/LMMemorial Hospital, KYCALCIUM, IONIZEDon 07-18-2019 Calcium [Mass/Vol]1.11 mmol/LLow1.13 - 1.33 mmol/[facility], CA Interpretation and review of laboratory resultsAbnoMiami Valley Hospital, CA CHLORIDE (POC)on 61-42-2180Txgtkljg [Moles/Vol]95 mmol/LLow98 - 107 mmol/[facility], KYCreatinine W/GFR Point of Careon 67-69-6203Urmbaehgnj [Mass/Vol] mg/dLLow0.51 - 1.19 mg/dLGreen Cross Hospital, KYGFR Non- AmericanCANNOT BE CALCULATED>60 mL/minGreen Cross Hospital, KYGFR/1.73 sq M predicted among non-blacks MDRD (S/P/Bld) [Vol rate/Area][facility], CAComment on above:Average GFR for 50-59 years old: 93 mL/min/1.73sq m Chronic Kidney Disease: <60 mL/min/1.73sq m Kidney failure: <15 mL/min/1.73sq m eGFR calculated using average adult body mass. Additional eGFR calculator available at: http://www.[employer]/MasCupon_crcl_2012.htm GFR/1.73 sq M predicted among non-blacks MDRD (S/P/Bld) [Vol rate/Area]CANNOT BE CALCULATED>60 mL/minGreen Cross Hospital, KYFERRITINon 35-85-2702Ilkoydzb [Mass/Vol] 28 ug/L13 - 150 ug/LMMemorial Hospital, KYHemoglobin and hematocrit, bloodon 12-83-0140Mbvibgpsdn (Bld) [Volume fraction]50 %High36 - 46 %[facility], CAHemoglobin (Bld) [Mass/Vol]16.9 g/wJLskk93 - 16 g/dLGreen Cross Hospital, [place] LACTATE DEHYDROGENASEon 57-38-1375Qtfuszbkqxwxcg and review of laboratory resultsAbnormalGreen Cross Hospital, DGMF549 U/RSxbx161 - 214 U/LMMemorial Hospital, KYLactic Acid, POCon 88-61-0923JBX Lactic Acid0.39 mmol/LLow0.56 - 1.39 mmol/L [facility], CALegionella antigen, urineon 05-41-8678Lbzafpbete Pneumophilia Ag, UrineNegativeGreen Cross Hospital, KYComment on above:L. pneumophila serogroup 1 antigen not detected. A negative result does not exclude infection with Leginella pnemophila serogroup 1 nor does it rule out other microbial-caused respiratory infections of disease caused by other serogroups of Legionella pneumophila. MAGNESIUMon 28-24-0111Qscqmuodi [Mass/Vol]1.9 mg/dL1.6 - 2.6 mg/dLMercy Health- [place], KYMRSA DNA Probe, Nasalon 59-57-9867URPE, DNA, NasalNEGATIVE: MRSA DNA not detected by [...] Specimen Description.NASAL SWABMercy Health- [place], KYMicroscopic Urinalysison 62-47-3447Sjxwxwlfr, UANOT REPORTEDNoneMercy Health- [place], KYBacteria, UANOT REPORTEDNoneMercy [...] [place]-[facility]- [place], KYMixed Venous Gas, POCon 04-03-2775Aktkh TestNOT REPORTEDMercy Health- [place], KYaPTT Coag (Bld) [Time]NOT REPORTEDMercy Health- [place], QWWLD5ATV REPORTEDMercy Health- [place], KYHCO3, Mixed38.6 mmol/LHigh23 - 29 mmol/LMercy Health- [place], KYMode NOT REPORTEDMercy Health- [place], KYNegative Base Excess, MixedNOT REPORTEDMercy Health- [place], KYO2 Device/Flow/%NOT REPORTEDMercy Health- [place], KYOxygen saturation in Blood82 %High60 - 80 %[facility]- [place], KYPCO2, Pzqwh76Zslaaiqedu highAshtabula [facility] Health- [place], KYPH MIXED7.302LowMerShriners Hospital for Children- [place], KYPO2, Mixed53.5HighPomerene Hospital- [place], KYPOC pCO2 TempNOT REPORTEDmm HgPomerene Hospital- [place], KYPOC pH TempNOT REPORTEDPomerene Hospital- [place], KYPOC pO2 TempNOT REPORTEDmm HgPomerene Hospital- [place], [place] Positive Base Excess, Uqrzh5SjujUfkjx Health- [place], KYSample SiteRight Radial ArteryPomerene Hospital- [place], KYtCO2, Mixed41 mmol/LHigh24 - 30 mmol/LMKettering Health Springfield- [place], KYNotification Panel, POCon 56-56-3005NyzegkOgbmvvrdcpyiukrBnaoi Health- [place], CADate/Time07/18/201902:24:00[facility], KYNOTIFYdSelect Medical [facility]- [place], [place] READ BACKYesMKettering Health Springfield- [place], KYOtheron 54-25-7545Ocmbagkajejqfw and review of laboratory resultsAbnoMiami Valley Hospital, CAInterpretation and review of laboratory resultsAbnoMiami Valley Hospital, CAInterpretation and review of laboratory resultsAbnoMiami Valley Hospital, [facility] Glucose Fingerstickon 53-88-2591Ttbqazp [Mass/Vol]164 mg/qSKymz85 - 105 mg/dLGreen [facility], [place] Interpretation and review of laboratory resultsAbnoMiami Valley Hospital, [place] Glucose [Mass/Vol]113 mg/aQOlog17 - 105 mg/dLGreen Cross Hospital, CAInterpretation and review of laboratory resultsAbnoMiami Valley Hospital, CAGlucose [Mass/Vol] 135 mg/nVAiaq10 - 105 mg/dLGreen Cross Hospital, CAInterpretation and review of laboratory resultsAbUniversity [facility], CAGlucose [Mass/Vol]124 mg/uNRjgo31 - 105 mg/dLGreen Cross Hospital, CAInterpretation and review of laboratory results AbnormalGreen Cross Hospital, CAPOCT Glucoseon 20-03-3069Pwmfoaz [Mass/Vol]143 mg/dL High74 - 100 mg/dLMercy Health- [place], KYGlucose [Mass/Vol]160 mg/sEVmpo27 - 100 mg/dLMercy Health- [place], KYGlucose [Mass/Vol]135 mg/cMCpmo63 - 100 mg/dLMercy Health- [place], KYPOTASSIUM (POC)on 86-33-4129Amoyiqabn [Moles/Vol]3.4 mmol/LLow3.5 - 4.5 mmol/LMercy Health- [place], KYSODIUM (POC)on 30-20-9336Keysbp [Moles/Vol]144 mmol/L138 - 146 mmol/LMercy Health- [place], KYStrep Pneumoniae Antigenon 07-18-2019 Source.CLEAN CATCH URINEMercy Health- [place], KYStrep pneumo AgNegativeMercy Health- [place], KYComment on above:Strep pneumoniae antigen not detectedTroponinon 48-33-6860Osbawvzd I.cardiac [Mass/Vol]NOT REPORTEDMer Health- [place], KYTroponin T.cardiac [Mass/Vol]NOT REPORTED<0.03 ng/mLMercy Health- [place], KYTroponin, High Sdyhshbbycu26 ng/L0 - 14 ng/LMercy Health- [place], KYComment on above: High Sensitivity Troponin values cannot be compared with other Troponin methodologies. Patients with high levels of Biotin oral intake (i.e >5mg/day) may have falsely decreased Troponin levels. Samples collected within 8 hours of biotin intake may require additional information for diagnosis. URINALYSISon 14-87-5017Vydvntznb UrineNegativeAbnormalNEGATIVEMercy Health- [place], KYColor, UADARK YELLOWAbnormalYELLOWMercy Health- [place], KYGlucose, UrNegative NEGATIVEMercy Health- [place], KYInterpretation and review of laboratory results AbnormalMercy Health- [place], KYKetones Ql (U)NegativeNEGATIVEMercy Health- [place], [place] Leukocyte esterase Test strip Ql (U)SMALLAbnormalNEGATIVEMercy Health- [place], [place] Nitrite, UrineNegativeNEGATIVEMercy Health- [place], KYpH, UA5.0[facility]- [place], [place] Protein (U) [Mass/Vol]2+AbnormalNEGATIVEMercy Health- [place], KYSpecific [place], UA 1.041HighMercy Health- [place], KYTurbidity UACLOUDYAbnormalCLEARGreen Cross Hospital, [place] Urinalysis CommentsNOT REPORTEDGreen Cross Hospital, CARLOSUrine HgbSMALLAbnormal NEGATIVEGreen Cross Hospital, CAUrobilinogen, UrineNormalNormalGreen Cross Hospital, CARLOS XR ABDOMEN FOR NG/OG/NE TUBE PLACEMENTon 09-25-8356Tqh orogastric tube is in the distal stomach.[facility] HospitalCARLOSEXAMINATION: ONE SUPINE XRAY VIEW(S) OF THE [...] evidence of bowel obstruction. Cholecystectomy clips are present.Green Cross HospitalAudelia Mhpn Incoming Radiant Results From [employer] - 07/18/2019 10:46 AM EDT EXAMINATION: ONE [...] orogastric tube is in the distal stomach. [facility] HospitalCARLOSXR CHEST PORTABLEon 36-90-4844Oz obvious pneumothorax after central line placementGreen Cross Hospital, Noellei, Mhpn Incoming Radiant Results From [place]/[employer] - 07/18/2019 7:49 AM EDT EXAMINATION: ONE [...] left, similar to prior.[facility]- [place], KYAmmoniaon 96-39-3002Mkjusyj (P) [Mass/Vol]29 umol/L11 - 51 umol/L [facility]- [place], KYBlood Gas, Arterialon 86-44-2529Hzrfl TestPASSMercy Health- [place], KYaPTT Coag (Bld) [Time]37 sMercy Health- [place], KYCarboxyhemoglobinNOT REPORTED0 - 5 %[facility]- [place], [id number] REPORTEDMercy Health- [place], KYHCO3, Bmscsnqs62.5 mmol/LHigh22 - 26 mmol/LMercy [facility]- [place], KYInterpretation and review of laboratory resultsAbnormalMercy Health- [place], KYMethemoglobinNOT REPORTED0 - 1.9 %[facility]- [place], KYModeNOT REPORTEDMercy Health- [place], [place] Negative Base Excess, ArtNOT REPORTED0 - 2 mmol/LMer[facility]- [place], [place] NOTIFICATIONNOT REPORTEDMercy Health- [place], KYNOTIFICATION TIMENOT REPORTEDMercy Health- [place], KYO2 Device/Flow/%ROOM AIRMercy Health- [place], KYOxygen saturation in Blood64.5 %Low95 - 98 %[facility]- [place], KYOxyhemoglobinNOT STQIZGDE52 - 98 % [facility]- [place], KYpCO2, Art, Temp AdjNOT REPORTEDMercy Health- [place], KYpCO2, Ukecsidr19.4Critically highMercy Health- [place], KYPeep/CpapNOT REPORTEDMercy Health- [place], KYpH, Art, Temp AdjNOT REPORTEDMercy Health- [place], KYpH, Arterial7.321 LowMercy Health- [place], KYpO2, Art, Temp AdjNOT REPORTEDPomerene Hospital- [place], KYpO2, Synrccdd82.1Critically lowAshtabula County Medical Center [facility]- [place], KYPositive Base Excess, Art4.3 mmol/LHigh0 - 2 mmol/LMercy [facility]- [place], KYPSVNOT REPORTEDPomerene Hospital- [place], KYPt. PositionSEMI-FOWLERSPomerene Hospital- [place], KYSample SiteRight Brachial ArteryPomerene Hospital- [place], KYSet RateNOT REPORTEDPomerene Hospital- [place], KYText for RespiratoryNOT REPORTEDPomerene Hospital- [place], KYTotal HbNOT BLCJBVTO71 - 16 g/dlPomerene Hospital- [place], [place] Total RateNOT REPORTEDPomerene Hospital- [place], KYVTNOT REPORTEDPomerene Hospital- [place], [place] Brain Natriuretic Peptideon 46-22-8263Cejotvhagvn peptide B (Bld) [Mass/Vol]1007 pg/mLHigh<300Pomerene Hospital- [place], KYComment on above:Pro-BNP results cannot be compared to BNP results.Natriuretic peptide B (Bld) [Mass/Vol]Pro-BNP Reference Range:[facility], CAComascension standish [facility] on above: Rule Out: <300 [place] Zone: Age <50 300-450 Age 50-75 300-900 Age >75 300-1800 Usually represents mild to moderate HF but other cardiopulmonary causes cannot be ruled out. Rule In: Age <50 >450 Age 50-75 >900 Age >75 >1800 CBC Auto Differentialon 04-08-7016Oooxyfyiq (Bld) [#/Vol]0.05 10*3/uLPomerene Hospital- [place], KYBasophils/100 WBC (Bld)1 %0 - 2 %[facility]- [place], KYDifferential TypeNOT REPORTEDPomerene Hospital- [place], KYEosinophils (Bld) [#/Vol]0.36 10*3/uLPomerene Hospital- [place], KYEosinophils/100 WBC (Bld)4 %1 - 4 %[facility] [place], CAErythrocyte distribution width (RBC) [Ratio]15.7 %High11.8 - 14.4 %[facility], [place] Hematocrit (Bld) [Volume fraction]43.4 %36.3 - 47.1 %[facility], [place] Hemoglobin (Bld) [Mass/Vol]13.7 g/dL11.9 - 15.1 g/dLWatersmeet, KYImmaveterans health administration granulocytes (Bld) [#/Vol]0.03 10*3/uLGreen Cross Hospital, CAImmature granulocytes (Bld) [#/Vol]0 %0[place], KYInterpretation and review of laboratory resultsAbnormalW[place], KYLymphocytes (Bld) [#/Vol]1.60 10*3/uLGreen Cross Hospital, CALymphocytes/100 WBC (Bld)17 %Low24 - 43 %[facility] for RehabilitationH (RBC) [Entitic mass]27.6 pg25.2 - 33.5 pgWatersmeet, KYMCHC (RBC) [Mass/Vol]31.6 g/dL28.4 - 34.8 g/dLWatersmeet, KYMCV (RBC) [Entitic vol] 87.5 fL82.6 - 102.9 fLWatersmeet, KYMonocytes (Bld) [#/Vol]0.70 10*3/uL [facility] CAMonocytes/100 WBC (Bld)7 %3 - 12 %[place], [place] Platelet mean volume (Bld) [Entitic vol]9.0 fL8.1 - 13.5 fLWatersmeet, [place] Platelets (Bld) [#/Vol]NOT REPORTEDWaters[place], KYPlatelets (Bld) [#/Vol] 277 10*3/uLGreen Cross Hospital, CARBC (Bld) [#/Vol]4.96 10*6/uL3.95 - 5.11 m/uL [place], KYRBC morphology finding Nom (Bld)NOT REPORTEDWatersmeet, KYSegmented neutrophils/100 WBC (Bld)71 %High36 - 65 %[place], [place] Segs Absolute6.82[facility], CAWBC (Bld) [#/Vol]0.0 10*3/uL0.0 per 100 WBC [place], KYWBC (Bld) [#/Vol]9.6 10*3/[facility], KYWBC MorphologyNOT REPORTEDGreen Cross Hospital, KYCKon 88-13-0792Aujhi CK70 U/L26 - 192 U/[facility], KYCT Chest Pulmonary Embolism W Contraston 07-17-2019 [...] Tissues/Bones: No acute bone or soft tissue abnormality.[facility], KYMild edema. Nonspecific peripheral infiltrates appear somewhat improved. Coronary artery disease. RECOMMENDATIONS: Imaging features can be seen with viral pneumonia, though are nonspecific and can occur with a variety of infectious and noninfectious processes. PneInAdams County Regional Medical [facility], Bridgette Win Incoming Radiant Results From [employer] - 07/17/2019 8:06 PM EDT EXAMINATION: CTA [...] variety of infectious and noninfectious processes. PneInd [facility], KYCT Head WO Contraston 78-21-6529SVUTKJWJYNX: CT OF THE HEAD WITHOUT CONTRAST 07/17/2019 [...] Moderate to severe atherosclerotic calcifications. No acute fracture.[facility] Cross HospitalAmy acute findings in the head.[facility], [place]idgette Win Incoming Radiant Results From [place]/Pacs - 07/17/2019 6:18 PM EDT EXAMINATION: CT [...] IMPRESSION: No acute findings in the head. [facility], KYComprehensive Metabolic Panel w/ Reflex to MGon 07-17-2019 Albumin [Mass/Vol]3.7 g/dL3.5 - 5.2 g/dLGreen Cross Hospital, KYAlbumin/Globulin [Mass ratio]1.2 {ratio}[facility], KYALP [Catalytic activity/Vol]93 U/L35 - 104 U/LMMemorial Hospital, KYALT [Catalytic activity/Vol]11 U/L5 - 33 U/LMMemorial Hospital, KYAnion gap [Moles/Vol]12 mmol/L9 - 17 mmol/LMMemorial Hospital, KYAST [Catalytic activity/Vol]12 U/L<32[facility], KYBilirubin Ql (U)0.26 mg/dL Low0.3 - 1.2 mg/dLMercy Health- [place], KYBun/Cre Npcky64NrptMvgrw Health- [place], [place] Calcium [Mass/Vol]9.1 mg/dL8.6 - 10.4 mg/dLPomerene Hospital- [place], KYChloride [Moles/Vol]99 mmol/L98 - 107 mmol/LMgood [facility]- [place], KYCO2 [Moles/Vol]29 mmol/L 20 - 31 mmol/LMuniversity hospitals [facility]vel[facility] centery [facility]- [place], KYCreatinine [Mass/Vol]0.57 mg/dL0.5 - 0.9 mg/dL [facility]- [place], KYGFR >60>60 mL/minPomerene Hospital- [place], KYGFR Non->60>60 mL/minPomerene Hospital- [place], KYGlucose [Mass/Vol]126 mg/dL High70 - 99 mg/dLPomerene Hospital- [place], KYPotassium [Moles/Vol]4.2 mmol/L3.7 - 5.3 mmol/LMuniversity hospitals clevel[facility] medical centery Health- [place], KYProtein [Mass/Vol]6.7 g/dL6.4 - 8.3 g/dLPomerene Hospital- [place], KYSodium [Moles/Vol]140 mmol/L135 - 144 mmol/LMKettering Health Springfield- [place], KYUrea nitrogen [Mass/Vol]13 mg/dL6 - 20 mg/dLPomerene Hospital- [place], KYD-dimer, quantitative on [id number]-Dimer, Quant0.97[facility], KYComment on above: Elevated levels of [...] of 98%). Interpretation and review of laboratory resultsAbnormalAshtabula [facility]- [place], [place] Ethanolon 05-09-6608Atmdhyu [Mass/Vol]mg/dL<10 mg/dLPomerene Hospital- [place], KYEthanol percent<0.010<0.010 %[facility]- [place], KYMetabolic Panelon 01-06-4922SXW/1.73 sq M predicted among non-blacks MDRD (S/P/Bld) [Vol rate/Area][facility], [place] Comment on above:Stage 1: Some kidney damage [...] body mass. Additional eGFR calculator available at: http://www.Scoot & Doodle/multiple_crcl_2012.htm Microscopic Urinalysison 98-06-1829Pdvbkxtuq, UANOT REPORTEDNoneMey Health- [place], KYBacteria, UANOT REPORTEDNoneMey Health- [place], KYCasts UANOT REPORTED/LPF [facility]- [place], KYCrystals, UANOT REPORTEDNone /HPFMercy Health- [place], [place] Epithelial Cells UANoneMemarietta osteopathic clinic Health- [place], KYMucus, UANOT REPORTEDNoneMey Health- [place], KYOther Observations UANOT REPORTEDNOT REQ.[facility]- [place], KYRBC (U) [#/Vol]0 TO 2[facility]- [place], KYRenal Epithelial, UANOT REPORTED0 /HPFMercy Health- [place], KYTrichomonas, UANOT REPORTEDNoneMercy Health- [place], KYWBC, UA0 TO 2 [facility]- [place], KYYeast, UANOT REPORTEDNoneMemarietta osteopathic [facility]- [place], [place]-[facility]- [place], KYOtheron 23-19-4259Shxsdthhvtaltb and review of laboratory resultsAbnormal [facility]- [place], KYProtime-INRon [id number] Coag (PPP) [Relative time]1.0 {INR}[facility]- [place], CAPT Coag (PPP) [Time]10.6 sMKettering Health Springfield- [place], CATroponin on [id number] I.cardiac [Mass/Vol]NOT REPORTEDGreen Cross Hospital, [place] Troponin T.cardiac [Mass/Vol]NOT REPORTED<0.03 ng/mLMercy Health- [place], [...] information for diagnosis. Urinalysis Reflex to Cultureon [id number] UrineNegativeNEGATIVEMercy Health- [place], KYColor, UAYELLOWYELLOWMercy Health- [place], KYGlucose, UrNegative NEGATIVEMercy Health- [place], KYInterpretation and review of laboratory results AbnormalMercy Health- [place], KYKetones Ql (U)NegativeNEGATIVEMercy Health- [place], [place] Leukocyte esterase Test strip Ql (U)NegativeNEGATIVEMercy Health- [place], KYNitrite, UrinePositiveAbnormalNEGATIVEMercy Health- [place], KYpH, UA6.0[facility]- [place], [place] Protein (U) [Mass/Vol]NegativeNEGATIVEMercy Health- [place], KYSpecific [place], UA 1.010[facility]- [place], KYTurbidity UACLEARCLEARMercy Health- [place], KYUrinalysis CommentsNOT REPORTEDMercy Health- [place], KYUrine HgbNegativeNEGATIVEMercy Health- [place], KYUrobilinogen, UrineNormalNormalMercy Health- [place], KYUrine Drug Screenon [id number] Screen, UrNegativeNEGATIVEMercy Health- [place], KYBarbiturate Screen, UrNegativeNEGATIVEMercy Health- [place], KYBenzodiazepine Screen, Urine PositiveAbnormalNEGATIVEMercy Health- [place], KYBuprenorphine UrineNegativeNEGATIVE [facility]- [place], KYCannabinoid Scrn, UrNegativeNEGATIVEMercy Health- [place], [place] Cocaine Metabolite, UrineNegativeNEGATIVEMercy Health- [place], KYInterpretation and review of laboratory resultsAbnormalMercy Health- [place], KYMDMA, UrineNOT REPORTED NEGATIVEMercy Health- [place], KYMethadone Screen, UrineNegativeNEGATIVEMercy Health- [place], KYMethamphetamine, UrineNegativeNEGATIVEMercy Health- [place], KYOpiates, Urine NegativeNEGATIVEMercy Health- [place], KYOxycodone Screen, UrNegativeNEGATIVEKettering Health Miamisburgcy [facility]- [place], KYPhencyclidine, UrineNegativeNEGATIVEAshtabula [facility]- [place], [place] Propoxyphene, UrineNegativeNEGATIVEKettering Health Miamisburgcy Health- [place], KYTest InformationNOT REPORTEDPomerene Hospital- [place], KYTricyclic Antidepressants, UrineNegativeNEGATIVE [facility]- [place], KYComment on above:Drug screen results are to be used for medical purposes only. All positive results are unconfirmed. Testing for employment or legal uses should be sent to a reference laboratory for confirmation. XR CHEST PORTABLEon [id number], Mhpn Incoming Radiant Results From [employer]/Pacs - [...] is suspected to be atelectasis or scarring. [facility], KYMild pulmonary edema. Small linear left lower lobe opacity is suspected to be atelectasis or scarring.[facility]- [place], KYEXAMINATION: ONE X-RAY VIEW OF THE CHEST 07/17/2019 6:10 pm COMPARISON: April 21, 2019 HISTORY: ORDERING SYSTEM PROVIDED HISTORY: Fall TECHNOLOGIST PROVIDED HISTORY: Fall FINDINGS: Rotated positioning. No focal consolidation. Small linear left lower lobe opacity. Cardiomegaly. Mild pulmonary edema.[facility], KYCBC Auto Differentialon [id number] (Bld) [#/Vol]0.08 10*3/uLAshtabula County [facility] Center [facility]- [place], [place] Basophils/100 WBC (Bld)1 %0 - 2 %[facility]- [place], KYDifferential TypeNOT REPORTEDPomerene Hospital- [place], KYEosinophils (Bld) [#/Vol]0.56 10*3/uLHighMer Health- [place], KYEosinophils/100 WBC (Bld)4 %1 - 4 %[facility]- [place], KYErythrocyte distribution width (RBC) [Ratio]14.9 %High11.8 - 14.4 %[place], [place] Hematocrit (Bld) [Volume fraction]48.3 %High36.3 - 47.1 %[place], [place] Hemoglobin (Bld) [Mass/Vol]14.9 g/dL11.9 - 15.1 g/dLWatersmeet, KYImmature granulocytes (Bld) [#/Vol]0.04 10*3/uLGreen Cross HospitalCARLOSImmature granulocytes (Bld) [#/Vol]0 %0[place], KYInterpretation and review of laboratory resultsAbnormalGreen Cross Hospital, CALymphocytes (Bld) [#/Vol]2.18 10*3/uLGreen Cross Hospital CALymphocytes/100 WBC (Bld)16 %Low24 - 43 %[place], KYMCH (RBC) [Entitic mass]27.8 pg25.2 - 33.5 pgWatersmeet, KYMCHC (RBC) [Mass/Vol]30.8 g/dL28.4 - 34.8 g/dLWaters[place], KYMCV (RBC) [Entitic vol] 90.1 fL82.6 - 102.9 fLGreen Cross Hospital CAMonocytes (Bld) [#/Vol]0.78 10*3/uL [facility] HospitalCARLOSMonocytes/100 WBC (Bld)6 %3 - 12 %[place], [place] Platelet mean volume (Bld) [Entitic vol]9.3 fL8.1 - 13.5 fLWatersmeet, [place] Platelets (Bld) [#/Vol]281 10*3/uLGreen Cross Hospital CAPlatelets (Bld) [#/Vol]NOT REPORTEDW[place], KYRBC (Bld) [#/Vol]5.36 10*6/uLHigh3.95 - 5.11 m/uL [place], KYRBC morphology finding Nom (Bld)NOT REPORTEDW[place], KYSegmented neutrophils/100 WBC (Bld)73 %High36 - 65 %[place], [place] Segs Kcryxpkw05.02HighMercy Health- [place], KYWBC (Bld) [#/Vol]13.7 10*3/uLHighMerShriners Hospital for [facility]- [place], KYWBC (Bld) [#/Vol]0.0 10*3/uL0.0 per 100 WBCPomerene Hospital- [place], [place] WBC MorphologyNOT REPORTEDPomerene Hospital- [place], KYComprehensive Metabolic Panelon [id number] [Mass/Vol]4.3 g/dL3.5 - 5.2 g/dLPomerene Hospital- [place], [place] Albumin/Globulin [Mass ratio]1.4 {ratio}[facility]- [place], KYALP [Catalytic activity/Vol]84 U/L35 - 104 U/LMKettering Health [facility]- [place], KYALT [Catalytic activity/Vol]9 U/L5 - 33 U/LM[facility]- [place], KYAnion gap [Moles/Vol]11 mmol/L9 - 17 mmol/L [facility]- [place], KYAST [Catalytic activity/Vol]13 U/L<32[facility]- [place], [place] Bilirubin Ql (U)0.22 mg/dLLow0.3 - 1.2 mg/dLPomerene Hospital- [place], KYBun/Cre Ratio27 HighPomerene Hospital- [place], KYCalcium [Mass/Vol]9.3 mg/dL8.6 - 10.4 mg/dLPomerene Hospital- [place], KYChloride [Moles/Vol]95 mmol/LLow98 - 107 mmol/LMKettering Health [facility]- [place], KYCO2 [Moles/Vol]29 mmol/L20 - 31 mmol/LMKettering Health [facility]- [place], KYCreatinine [Mass/Vol]0.55 mg/dL0.5 - 0.9 mg/dLPomerene Hospital- [place], KYGFR >60>60 mL/minPomerene Hospital- [place], KYGFR Non->60>60 mL/minPomerene Hospital- [place], KYGlucose [Mass/Vol]82 mg/dL70 - 99 mg/dLPomerene Hospital- [place], KYInterpretation and review of laboratory resultsAbnormalPomerene Hospital- [place], KYPotassium [Moles/Vol]4.2 mmol/L3.7 - 5.3 mmol/LMgood [facility]itan [facility]- [place], KYProtein [Mass/Vol]7.4 g/dL6.4 - 8.3 g/dLW[place], KYSodium [Moles/Vol]135 mmol/L135 - 144 mmol/LMRutledge, [place] Urea nitrogen [Mass/Vol]15 mg/dL6 - 20 mg/dLWaters[place], KYMetabolic Panel on [id number]/1.73 sq M predicted among non-blacks MDRD (S/P/Bld) [Vol rate/Area][place], KYComment on above:Stage 1: Some kidney damage [...] body mass. Additional eGFR calculator available at: http://www.Scoot & Doodle/multiple_crcl_2012.htm Troponinon [id number] I.cardiac [Mass/Vol]NOT REPORTEDWatersmeet, KYTrthompson cancer [facility], [place], [facility]nin T.cardiac [Mass/Vol]NOT REPORTED<0.03 ng/mLW[place], [place] Troponin, High Sensitivity7 ng/L0 - 14 ng/LMRutledge, KYComascension standish hospital on above: High Sensitivity Troponin values cannot be compared with other Troponin methodologies. Patients with high levels of Biotin oral intake (i.e >5mg/day) may have falsely decreased Troponin levels. Samples collected within 8 hours of biotin intake may require additional information for diagnosis. XR HAND LEFT (MIN 3 VIEWS)on [id number] acute fracture or dislocation in the left hand. Chronic deformities and moderate to severe degenerative changes at the 1st carpometacarpal joint. Mild soft tissue swellingW[place], [place] EXAMINATION: THREE XRAY VIEWS OF THE [...] tissue swelling. No evidence of radiopaque foreign body.[facility] HospitalAudelia Mhpn Incoming Radiant Results From [facility]/Pacs - 05/27/2019 9:51 AM EST EXAMINATION: THREE [...] 1st carpometacarpal joint. Mild soft tissue swelling [facility] ZextitHANNIBAL REG[facility], CARLOSConnecticut [facility] Hospital Metabolic PanelOrdered By: Ziggy Smith on [id number] gap [Moles/Vol]8 mmol/LLow9 - 17 mmol/LMercy [employer] Work Phone: bun/Cre Goqfm12GjilUbccp Health Work Phone: calcium [Mass/Vol]9.1 mg/dL8.6 - 10.4 mg/dLKettering Health MiamisburgPlaid Work Phone: chloride [Moles/Vol]100 mmol/L98 - 107 mmol/LMercy [employer] Work Phone: ZO2 [Moles/Vol]32 mmol/LHigh20 - 31 mmol/LMercy [employer] Work Phone: creatinine [Mass/Vol]0.48 mg/dLLow0.5 - 0.9 mg/dLKettering Health MiamisburgShiftgig Phone: GFR >60>60 mL/minKettering Health MiamisburgPlaid Work Phone: GFR CommentKettering Health MiamisburgShiftgig Phone: comment on above:Average GFR for 50-59 years old: 93 mL/min/1.73sq m Chronic Kidney Disease: <60 mL/min/1.73sq m Kidney failure: <15 mL/min/1.73sq m eGFR calculated using average adult body mass. Additional eGFR calculator available at: http://www.Scoot & Doodle/multiple_crcl_2012.htm GFR Non->60>60 mL/minKettering Health MiamisburgShiftgig Phone: GFR StagingKettering Health MiamisburgShiftgig Phone: comment on above:Stage 1: Some kidney damage normal GFR Stage 2: Mild kidney damage GFR 60-89 Stage 3: Moderate kidney damage GFR 30-59 Stage 4: Severe kidney damage GFR 15-29 Stage 5: Severe kidney damage GFR <15 ESRD - chronic treatment by dialysis or transplant Glucose [Mass/Vol]111 mg/nSHgql33 - 99 mg/dLKettering Health MiamisburgShiftgig Phone: Interpretation and review of laboratory results AbnormalKettering Health MiamisburgShiftgig Phone: potassium [Moles/Vol]4.1 mmol/L3.7 - 5.3 mmol/LMuniversity hospitals cleveland medical centery [employer] Phone: sodium [Moles/Vol]140 mmol/L135 - 144 mmol/LMercy [employer].sg Phone: Urea nitrogen [Mass/Vol]14 mg/dL6 - 20 mg/dLKettering Health MiamisburgShiftgig Phone: cBC Auto DifferentialOrdered By: Ziggy Smith on [id number] Eos #<0.03[facility] Mi[facility]burgShiftgig Phone: absolute Immature Granulocyte0.04[facility]burgShiftgig Phone: absolute Lymph #1.73[facility]burgShiftgig Phone: absolute Denali #0.92[facility]burgShiftgig Phone: Basophils (Bld) [#/Vol]10*3/uLKettering Health MiamisburgShiftgig Phone: Basophils/100 WBC (Bld)0 %0 - 2 %[employer] Phone: differential TypeNOT REPORTEDKettering Health MiamisburgShiftgig Phone: eosinophils/100 WBC (Bld)0 %Low1 - 4 %[employer] Phone: erythrocyte distribution width (RBC) [Ratio]13.7 %11.8 - 14.4 %[employer] Phone: Hematocrit (Bld) [Volume fraction]47.1 %36.3 - 47.1 % [employer] Phone: Hemoglobin (Bld) [Mass/Vol]14.7 g/dL11.9 - 15.1 g/dL [employer] Phone: Immature granulocytes/100 WBC (Bld)0 %0K[facility] MiamisburgShiftgig Phone: Interpretation and review of laboratory results AbnormalKettering Health MiamisburgShiftgig Phone: lymphocytes/100 WBC (Bld)19 %Low24 - 43 %[employer] Phone: MCH (RBC) [Entitic mass]28.5 pg25.2 - 33.5 pgKettering Health MiamisburgShiftgig Phone: MCHC (RBC) [Mass/Vol]31.2 g/dL28.4 - 34.8 g/dLKettering Health MiamisburgShiftgig Phone: MCV (RBC) [Entitic vol]91.3 fL82.6 - 102.9 fLKettering Health MiamisburgShiftgig Phone: Monocytes/100 WBC (Bld)10 %3 - 12 %[employer] Phone: NRBC Automated0.00.0 per 100 WBCKettering Health MiamisburgShiftgig Phone: platelet EstimateNOT REPORTEDKettering Health MiamisburgPlaid Work Phone: platelet mean volume (Bld) [Entitic vol]9.3 fL8.1 - 13.5 fLKettering Health MiamisburgShiftgig Phone: [phone] (Bld) [#/Vol]238 10*3/uLKettering Health MiamisburgPlaid Work Phone: [phone] (Bld) [#/Vol]5.16 10*6/uLHigh3.95 - 5.11 m/uLKettering Health MiamisburgPlaid Work Phone: RBC morphology finding Nom (Bld)NOT REPORTEDKettering Health MiamisburgShiftgig Phone: segmented neutrophils/100 WBC (Bld)71 %High36 - 65 % [facility] [employer] Phone: segs Absolute6.53[facility]burgShiftgig Phone: WBC (Bld) [#/Vol]9.3 10*3/uLKettering Health MiamisburgShiftgig Phone: WBC MorphologyNOT REPORTEDKettering Health MiamisburgPlaid Work Phone: culture Blood #1Ordered By: Wesly Whitten on 04-26-2019 Special Zaxammvo29UF, L ACKettering Health MiamisburgShiftgig Phone: special RequestsRAC 20 MLKettering Health MiamisburgShiftgig Phone: specimen Description.BLOODKettering Health MiamisburgShiftgig Phone: Glucose, Whole BloodOrdered By: Gordo De Santiago on 62-35-1112Wphqidi [Mass/Vol]149 mg/uKJrfo42 - 100 mg/dLKettering Health MiamisburgShiftgig Phone: Interpretation and review of laboratory results AbnormalKettering Health MiamisburgShiftgig Phone: Glucose [Mass/Vol]129 mg/gEPpvu43 - 100 mg/dLKettering Health MiamisburgShiftgig Phone: Interpretation and review of laboratory results AbnormalKettering Health MiamisburgShiftgig Phone: laboratory - Microbiology and Antimicrobial susceptibilityOrdered By: Wesly Whitten on 05-49-5735Behxhtyr identified Cx Nom (Unsp spec)NO GROWTH 5 DAYSKettering Health MiamisburgPlaid Work Phone: basic Metabolic PanelOrdered By: Ziggy Smith on 33-87-7613Jhzko gap [Moles/Vol]13 mmol/L9 - 17 mmol/LMercy [employer] Work Phone: bun/Cre Qfzbb13HwazSubxz Health Work Phone: calcium [Mass/Vol]9.0 mg/dL8.6 - 10.4 mg/dLKettering Health MiamisburgShiftgig Phone: chloride [Moles/Vol]100 mmol/L98 - 107 mmol/LMercy [employer] Work Phone: cO2 [Moles/Vol]29 mmol/L20 - 31 mmol/LMuniversity hospitals cleveland medical centerThe Halo Group Work Phone: creatinine [Mass/Vol]0.42 mg/dLLow0.5 - 0.9 mg/dLKettering Health MiamisburgShiftgig Phone: GFR >60>60 mL/minKettering Health MiamisburgShiftgig Phone: GFR CommentKettering Health MiamisburgShiftgig Phone: comment on above:Average GFR for 50-59 years old: 93 mL/min/1.73sq m Chronic Kidney Disease: <60 mL/min/1.73sq m Kidney failure: <15 mL/min/1.73sq m eGFR calculated using average adult body mass. Additional eGFR calculator available at: http://www.Banyan.[employer]/multiple_crcl_2012.htm GFR Non->60>60 mL/minKettering Health MiamisburgPlaid Work Phone: GFR StagingKettering Health MiamisburgShiftgig Phone: comment on above:Stage 1: Some kidney damage normal GFR Stage 2: Mild kidney damage GFR 60-89 Stage 3: Moderate kidney damage GFR 30-59 Stage 4: Severe kidney damage GFR 15-29 Stage 5: Severe kidney damage GFR <15 ESRD - chronic treatment by dialysis or transplant Glucose [Mass/Vol]145 mg/nXNhow48 - 99 mg/dLKettering Health MiamisburgShiftgig Phone: Interpretation and review of laboratory results AbnormalKettering Health MiamisburgShiftgig Phone: potassium [Moles/Vol]4.0 mmol/L3.7 - 5.3 mmol/LMercy [employer] Work Phone: sodium [Moles/Vol]142 mmol/L135 - 144 mmol/LMuniversity hospitals cleveland medical centery [employer] Work Phone: Urea nitrogen [Mass/Vol]12 mg/dL6 - 20 mg/dLKettering Health MiamisburgShiftgig Phone: cBC Auto DifferentialOrdered By: Ziggy Smith on [id number] Eos #<0.03[facility]Shiftgig Phone: absolute Immature Granulocyte0.03[facility]burgShiftgig Phone: absolute Lymph #1.55[facility]burgShiftgig Phone: absolute Denali #0.82[facility]Shiftgig Phone: basophils (Bld) [#/Vol]10*3/uLKettering Health MiamisburgShiftgig Phone: basophils/100 WBC (Bld)0 %0 - 2 %[employer] Phone: differential TypeNOT REPORTEDKettering Health MiamisburgShiftgig Phone: eosinophils/100 WBC (Bld)0 %Low1 - 4 %[employer] Phone: erythrocyte distribution width (RBC) [Ratio]14.1 %11.8 - 14.4 %[employer] Phone: Hematocrit (Bld) [Volume fraction]45.2 %36.3 - 47.1 % [employer] Phone: Hemoglobin (Bld) [Mass/Vol]14.1 g/dL11.9 - 15.1 g/dL [employer] Phone: Immature granulocytes/100 WBC (Bld)0 %0[facility]burgShiftgig Phone: Interpretation and review of laboratory results AbnormalKettering Health MiamisburgShiftgig Phone: Lymphocytes/100 WBC (Bld)17 %Low24 - 43 %[employer] Phone: MCH (RBC) [Entitic mass]28.8 pg25.2 - 33.5 pgKettering Health MiamisburgShiftgig Phone: MCHC (RBC) [Mass/Vol]31.2 g/dL28.4 - 34.8 g/dLKettering Health MiamisburgShiftgig Phone: MCV (RBC) [Entitic vol]92.4 fL82.6 - 102.9 fLKettering Health MiamisburgShiftgig Phone: Monocytes/100 WBC (Bld)9 %3 - 12 %[employer] Phone: NRBC Automated0.00.0 per 100 WBCKettering Health MiamisburgShiftgig Phone: platelet EstimateNOT REPORTEDKettering Health MiamisburgShiftgig Phone: Platelet mean volume (Bld) [Entitic vol]9.4 fL8.1 - 13.5 fLKettering Health MiamisburgShiftgig Phone: Platelets (Bld) [#/Vol]239 10*3/uLSt[employer]ulus Technologies Phone: [phone] (Bld) [#/Vol]4.89 10*6/uL3.95 - 5.11 m/uLSt[employer]ulus Technologies Phone: RBC morphology finding Nom (Bld)NOT REPORTEDKettering Health MiamisburgShiftgig Phone: Segmented neutrophils/100 WBC (Bld)74 %High36 - 65 % [employer] Phone: Segs Absolute6.84[facility] MiamisburgPlaid Work Phone: WBC (Bld) [#/Vol]9.3 10*3/uLMer [employer] Work Phone: WBC MorphologyNOT REPORTEDMer [employer] Work Phone: Glucose, Whole BloodOrdered By: Gordo De Santiago on 92-95-3817Skxkgbb [Mass/Vol]216 mg/cNTtub56 - 100 mg/dLAshtabula County Medical Center [employer] Phone: Interpretation and review of laboratory results AbnormalKettering Health MiamisburgShiftgig Phone: Glucose [Mass/Vol]267 mg/gHGcvp94 - 100 mg/dLAshtabula County Medical Center [employer] Phone: Interpretation and review of laboratory results AbnormalAshtabula County Medical Center [employer] Phone: Glucose [Mass/Vol]245 mg/wDYblu20 - 100 mg/dLAshtabula County Medical Center [employer] Phone: Interpretation and review of laboratory results AbnormalKettering Health MiamisburgShiftgig Phone: Glucose [Mass/Vol]124 mg/cYRnld93 - 100 mg/dLAshtabula County Medical Center [employer] Phone: Interpretation and review of laboratory results AbnormalKettering Health MiamisburgShiftgig Phone: MRSA DNA Probe, NasalOrdered By: Gordo De Santiago on 52-48-1642ESYY, DNA, NasalNEGATIVE: MRSA DNA not detected by nucleic acid amplification.NEGATIVE: MRSA DNA not detected by nucleic acid amplificatiAshtabula County Medical Center [employer] Phone: comment on above: Results should be used as an adjunct to nosocomial control efforts to identify patients needing enhanced precautions. The test is not intended to identify patients with staphylococcal infections. Results should not be used to guide or monitor treatment for MRSA infections. Specimen Description.NASAL SWABKettering Health MiamisburgPlaid Work Phone: basic Metabolic PanelOrdered By: Ziggy Smith on 50-38-2698Chyem gap [Moles/Vol]9 mmol/L9 - 17 mmol/LMercy Health Work Phone: bun/Cre Xrcen88CfjxAaftf Health Work Phone: calcium [Mass/Vol]8.7 mg/dL8.6 - 10.4 mg/dLKettering Health MiamisburgShiftgig Phone: chloride [Moles/Vol]103 mmol/L98 - 107 mmol/LMuniversity hospitals cleveland medical centery [employer] Phone: cO2 [Moles/Vol]27 mmol/L20 - 31 mmol/LMuniversity hospitals cleveland medical centery [employer] Phone: creatinine [Mass/Vol]0.49 mg/dLLow0.5 - 0.9 mg/dLKettering Health MiamisburgShiftgig Phone: GFR >60>60 mL/minKettering Health MiamisburgShiftgig Phone: GFR CommentKettering Health MiamisburgShiftgig Phone: comment on above:Average GFR for 50-59 years old: 93 mL/min/1.73sq m Chronic Kidney Disease: <60 mL/min/1.73sq m Kidney failure: <15 mL/min/1.73sq m eGFR calculated using average adult body mass. Additional eGFR calculator available at: http://www.Scoot [employer] Doodle/multiple_crcl_2012.htm GFR Non->60>60 mL/minKettering Health MiamisburgShiftgig Phone: GFR StagingKettering Health MiamisburgShiftgig Phone: comment on above:Stage 1: Some kidney damage normal GFR Stage 2: Mild kidney damage GFR 60-89 Stage 3: Moderate kidney damage GFR 30-59 Stage 4: Severe kidney damage GFR 15-29 Stage 5: Severe kidney damage GFR <15 ESRD - chronic treatment by dialysis or transplant Glucose [Mass/Vol]147 mg/uZJrnc28 - 99 mg/dLKettering Health MiamisburgShiftgig Phone: Interpretation and review of laboratory results AbnormalKettering Health MiamisburgShiftgig Phone: potassium [Moles/Vol]3.9 mmol/L3.7 - 5.3 mmol/LMSolutionary Phone: sodium [Moles/Vol]139 mmol/L135 - 144 mmol/LMApplied [employer] Work Phone: Urea nitrogen [Mass/Vol]19 mg/dL6 - 20 mg/dLKettering Health MiamisburgShiftgig Phone: cBC Auto DifferentialOrdered By: Ziggy Smith on 51-07-4817Szcbkgth Eos #<0.03[facility]Shiftg[facility] Phone: absolute Immature Granulocyte0.06[facility]burgShiftgig Phone: absolute Lymph #1.68[facility]Shiftgig Phone: absolute Denali #0.75[facility]Shift[facility] Phone: basophils (Bld) [#/Vol]10*3/uLKettering Health MiamisburgShiftgig Phone: basophils/100 WBC (Bld)0 %0 - 2 %[employer] Phone: differential TypeNOT REPORTEDKettering Health MiamisburgShiftgig Phone: eosinophils/100 WBC (Bld)0 %Low1 - 4 %[employer] Phone: erythrocyte distribution width (RBC) [Ratio]14.5 %High 11.8 - 14.4 %[employer] Phone: Hematocrit (Bld) [Volume fraction]44.8 %36.3 - 47.1 % [employer] Phone: Hemoglobin (Bld) [Mass/Vol]13.5 g/dL11.9 - 15.1 g/dL [employer] Phone: Immature granulocytes/100 WBC (Bld)1 %Gjmx2JcotsShiftgig Phone: Interpretation and review of laboratory results AbnormalKettering Health MiamisburgShiftgig Phone: Lymphocytes/100 WBC (Bld)14 %Low24 - 43 %[employer] Phone: [phone] (RBC) [Entitic mass]28.7 pg25.2 - 33.5 pgKettering Health MiamisburgShiftgig Phone: MCHC (RBC) [Mass/Vol]30.1 g/dL28.4 - 34.8 g/dLKettering Health MiamisburgShiftgig Phone: MCV (RBC) [Entitic vol]95.1 fL82.6 - 102.9 fLKettering Health MiamisburgShiftgig Phone: Monocytes/100 WBC (Bld)6 %3 - 12 %[employer] Phone: NRBC Automated0.00.0 per 100 WBCKettering Health MiamisburgShiftgig Phone: Glatelet EstimateNOT REPORTEDKettering Health MiamisburgShiftgig Phone: Platelet mean volume (Bld) [Entitic vol]9.5 fL8.1 - 13.5 fLKettering Health MiamisburgShiftgig Phone: Platelets (Bld) [#/Vol]238 10*3/uLKettering Health MiamisburgPlaid Work Phone: RBC (Bld) [#/Vol]4.71 10*6/uL3.95 - 5.11 m/uLKettering Health MiamisburgShiftgig Phone: RBC morphology finding Nom (Bld)NOT REPORTEDKettering Health MiamisburgShiftgig Phone: Segmented neutrophils/100 WBC (Bld)79 %High36 - 65 % [employer] Phone: Segs Absolute9.65HighKettering Health MiamisburgShiftgig Phone: [phone] (Bld) [#/Vol]12.2 10*3/uLCity HospitalStimulus Technologies Phone: WBC MorphologyNOT REPORTEDKettering Health MiamisburgShiftgig Phone: Glucose, Whole BloodOrdered By: Gordo De Santiago on [id number] [Mass/Vol]175 mg/iNDzby53 - 100 mg/dLMerAppAddictive Health Work Phone: Interpretation and review of laboratory results AbnormalMerAppAddictive Health Work Phone: Glucose [Mass/Vol]339 mg/fYZupt28 - 100 mg/dLMercy Health Work Phone: Interpretation and review of laboratory results AbnormalMerAppAddictive Health Work Phone: Glucose [Mass/Vol]182 mg/yDAbyr75 - 100 mg/dLMercy Health Work Phone: Interpretation and review of laboratory results AbnormalMerPlaid Work Phone: Glucose [Mass/Vol]130 mg/oXRjvh72 - 100 mg/dLMerAppAddictive Health Work Phone: Interpretation and review of laboratory results AbnormalMerPlaid Work Phone: blood Gas, ArterialOrdered By: Ziggy Smith on [phone] TestPASSMerPlaid Work Phone: [phone] - 5 %[employer] Work Phone: FIO2NOT REPORTEDSennari Work Phone: HCO3 (Bld) [Moles/Vol]26.5 mmol/LHigh22 - 26 mmol/L [employer] Work Phone: Interpretation and review of laboratory results AbnormalMerPlaid Work Phone: MethemoglobinNOT REPORTED0 - 1.9 %[employer] Work Phone: ModeNOT REPORTEDMerPlaid Work Phone: Negative Base Excess, Art0.2 mmol/L0 - 2 mmol/LMercy Health Work Phone: NOTIFICATIONNOT REPORTEDMerPlaid Work Phone: NOTIFICATION TIMENOT REPORTEDMercy Health Work Phone: O2 Device/Flow/%CannulaMercy Health Work Phone: Oxygen saturation in Blood89.6 %Low95 - 98 %[facility] Work Phone: OxyhemoglobinNOT RVQXGDUD31 - 98 %[facility] Work Phone: [phone], Art, Temp AdjNOT REPORTEDMercy Health Work Phone: iOT9, Zfvqythc93.2HighMercy Health Work Phone: [phone]/CpapNOT REPORTEDMercy Health Work Phone: pH, Art, Temp AdjNOT REPORTEDMercy Health Work Phone: pH, Arterial7.332LowMercy Health Work Phone: [phone], Art, Temp AdjNOT REPORTEDMer Health Work Phone: vX6, Velqyxnb76.2LowMer Health Work Phone: Positive Base Excess, ArtNOT REPORTED0 - 2 mmol/LMercy Health Work Phone: PSVNOT REPORTEDMerAppAddictive Health Work Phone: Pt Temp37.0[facility] Work Phone: Pt. PositionFOWLERSMer Health Work Phone: Respiratory rate20 /minMercy Health Work Phone: sample SiteRight Radial ArteryMer Health Work Phone: Set RateNOT REPORTEDMer Health Work Phone: Text for RespiratoryNOT REPORTEDMerAppAddictive Health Work Phone: Total HbNOT WLTPUIER91 - 16 g/dlMercy Health Work Phone: Total RateNOT REPORTEDMercy Health Work Phone: VTNOT REPORTEDMercy Health Work Phone: Urine CultureOrdered By: Wesly Whitten on 04-23-2019 Bacteria identified Cx Nom (U)NO SIGNIFICANT GROWTHAshtabula County Medical Center [employer] Work Phone: special RequestsNOT REPORTEDKettering Health MiamisburgPlaid Work Phone: specimen Description.CLEAN CATCH URINEKettering Health MiamisburgPlaid Work Phone: blood Gas, ArterialOrdered By: Oliva Tristan on [id number] TestPASSKettering Health MiamisburgPlaid Work Phone: [phone] - 5 %[facility] HealthThe [facility] Group Work Phone: [phone] Health Work Phone: HCO3 (Bld) [Moles/Vol]23.0 mmol/L22 - 26 mmol/LMuniversity hospitals cleveland medical centery [employer] Work Phone: Interpretation and review of laboratory results AbnormalKettering Health MiamisburgPlaid Work Phone: MethemoglobinNOT REPORTED0 - 1.9 %[facility] HealthThe [facility] Group Work Phone: ModeNOT REPORTEDKettering Health MiamisburgPlaid Work Phone: Negative Base Excess, Art4.4 mmol/LHigh0 - 2 mmol/L [facility] HealthThe [facility] Work Phone: NOTIFICATIONNOT [facility] Francis HospitalPl[facility] Work Phone: NOTIFICATION TIMENOT REPORTEDKettering Health MiamisburgPlaid Work Phone: O2 Device/Flow/%BIPAPMerPlaid Work Phone: Oxygen saturation in Blood91.1 %Low95 - 98 %[employer] Work Phone: OxyhemoglobinNOT ABABAMJP32 - 98 %[employer] Work Phone: pCO2, Art, Temp AdjNOT REPORTEDKettering Health MiamisburgPlaid Work Phone: pCO2, Ejnmhqcq92.9HighKettering Health MiamisburgPlaid Work Phone: peep/CpapNOT REPORTEDKettering Health MiamisburgPlaid Work Phone: pH, Art, Temp AdjNOT REPORTEDMerAppAddictive Health Work Phone: pH, Arterial7.272LowMercy Health Work Phone: pO2, Art, Temp AdjNOT REPORTEDMerAppAddictive Health Work Phone: pO2, Itubmqwc53.5LowMerAppAddictive Health Work Phone: positive Base Excess, ArtNOT REPORTED0 - 2 mmol/LMercy Health Work Phone: pSVNOT REPORTEDMerAppAddictive Health Work Phone: pt Temp37.0[facility] Work Phone: pt. PositionNOT REPORTEDMerAppAddictive Health Work Phone: respiratory rate16 /minMerAppAddictive Health Work Phone: sample SiteRight Brachial ArteryMerPlaid Work Phone: set RateNOT REPORTEDMerAppAddictive Health Work Phone: Text for RespiratoryNOT REPORTEDMerAppAddictive Health Work Phone: Total HbNOT BEPWIGOC25 - 16 g/dlMerPlaid Work Phone: Total RateNOT REPORTEDMerAppAddictive Health Work Phone: VTNOT REPORTEDMerAppAddictive Health Work Phone: blood Gas, ArterialOrdered By: Ziggy Smith on [id number] TestPASSMerPlaid Work Phone: [phone] - 5 %[employer] Work Phone: [phone] Health Work Phone: HCO3 (Bld) [Moles/Vol]25.4 mmol/L22 - 26 mmol/LMercy Health Work Phone: Interpretation and review of laboratory results AbnormalMerPlaid Work Phone: MethemoglobinNOT REPORTED0 - 1.9 %[facility] Work Phone: ModeNOT REPORTEDMerAppAddictive Health Work Phone: Negative Base Excess, Art2.9 mmol/LHigh0 - 2 mmol/L [employer] Work Phone: NOTIFICATIONNOT REPORTEDMerAppAddictive Health Work Phone: NOTIFICATION TIMENOT REPORTEDMerAppAddictive Health Work Phone: O2 Device/Flow/%CannulaMerAppAddictive Health Work Phone: Oxygen saturation in Blood90.9 %Low95 - 98 %[employer] Work Phone: OxyhemoglobinNOT XBEZLOIE04 - 98 %[employer] Work Phone: [phone], Art, Temp AdjNOT REPORTEDMerAppAddictive Health Work Phone: oXG2, Lportmol17.5HighMerAppAddictive Health Work Phone: [phone]/CpapNOT REPORTEDMerAppAddictive Health Work Phone: pH, Art, Temp AdjNOT REPORTEDMerAppAddictive Health Work Phone: pH, Arterial7.255LowMerAppAddictive Health Work Phone: nO9, Art, Temp AdjNOT REPORTEDMerAppAddictive Health Work Phone: hM1, Cncveajo08.5LowMerAppAddictive Health Work Phone: [phone] Base Excess, ArtNOT REPORTED0 - 2 mmol/LMercy Health Work Phone: PSVNOT REPORTEDMerAppAddictive Health Work Phone: Pt Temp37.0[facility] Work Phone: Pt. PositionNOT REPORTEDMerAppAddictive Health Work Phone: Respiratory RateNOT REPORTEDMerAppAddictive Health Work Phone: [phone] SiteRight Brachial ArteryMerAppAddictive Health Work Phone: Set RateNOT REPORTEDMerAppAddictive Health Work Phone: Text for RespiratoryNOT REPORTEDSt[employer] Phone: Total HbNOT QNYYCNQY34 - 16 g/dlSt[employer] Phone: Total RateNOT REPORTEDSt[employer] Phone: VTNOT REPORTEDSt[employer] Phone: cBC Auto DifferentialOrdered By: Gordo De Santiago on [phone] Eos #0.00[facility] Phone: absolute Immature Granulocyte0.00[facility] Phone: absolute Lymph #0.80LowSt[employer]ulus Technologies Phone: absolute Denali #0.00LowSt[employer]ulus [employer] Phone: basophils (Bld) [#/Vol]0.00 10*3/uLKettering Health MiamisburgShiftgig Phone: basophils/100 WBC (Bld)0 %0 - 2 %[employer] Phone: differential TypeNOT REPORTEDSt[employer] Phone: eosinophils/100 WBC (Bld)0 %Low1 - 4 %[employer] Phone: erythrocyte distribution width (RBC) [Ratio]14.3 %11.8 - 14.4 %[employer] Phone: Hematocrit (Bld) [Volume fraction]46.2 %36.3 - 47.1 % [employer] Phone: Hemoglobin (Bld) [Mass/Vol]14.3 g/dL11.9 - 15.1 g/dL [employer] Phone: Immature granulocytes/100 WBC (Bld)0 %0[employer] Phone: Interpretation and review of laboratory results AbnormalSt[employer] Phone: Lymphocytes/100 WBC (Bld)5 %Low24 - 43 %[employer] Work Phone: MCH (RBC) [Entitic mass]28.9 pg25.2 - 33.5 pgKettering Health MiamisburgShiftgig Phone: MCHC (RBC) [Mass/Vol]31.0 g/dL28.4 - 34.8 g/dLKettering Health MiamisburgShiftgig Phone: MCV (RBC) [Entitic vol]93.5 fL82.6 - 102.9 fLKettering Health MiamisburgShiftgig Phone: Monocytes/100 WBC (Bld)0 %Low3 - 12 %[employer] Phone: Morphology Emmett (Bld) [Interp]NormalKettering Health MiamisburgShiftgig Phone: NRBC Automated0.00.0 per 100 WBCKettering Health MiamisburgShiftgig Phone: platelet EstimateNOT REPORTEDKettering Health MiamisburgShiftgig Phone: platelet mean volume (Bld) [Entitic vol]9.6 fL8.1 - 13.5 fLKettering Health MiamisburgShiftgig Phone: Platelets (Bld) [#/Vol]208 10*3/uLKettering Health MiamisburgShiftgig Phone: RBC (Bld) [#/Vol]4.94 10*6/uL3.95 - 5.11 m/ClemonsShiftgig Phone: RBC morphology finding Nom (Bld)NOT REPORTEDKettering Health MiamisburgShiftgig Phone: Segmented neutrophils/100 WBC (Bld)95 %High36 - 65 % [employer] Phone: Segs Xrjycxqk06.10HighKettering Health MiamisburgShiftgig Phone: WBC (Bld) [#/Vol]15.9 10*3/uLCity HospitalStimulus Technologies Phone: WBC MorphologyNOT REPORTEDMerPlaid Work Phone: comprehensive Metabolic PanelOrdered By: Gordo De Santiago on [phone] [Mass/Vol]3.6 g/dL3.5 - 5.2 g/dLAshtabula County Medical Center [employer] Phone: Ilbumin/Globulin [Mass ratio]1.1 {ratio}[facility] [employer] Work Phone: NLP [Catalytic activity/Vol]86 U/L35 - 104 U/LMercy [employer] Work Phone: CLT [Catalytic activity/Vol]10 U/L5 - 33 U/LMuniversity hospitals cleveland medical centery [employer] Work Phone: Snion gap [Moles/Vol]12 mmol/L9 - 17 mmol/LMercy [employer] Work Phone: TST [Catalytic activity/Vol]10 U/L<32MerPl[facility] Work Phone: Xilirubin [Mass/Vol]0.24 mg/dLLow0.3 - 1.2 mg/dLAshtabula County Medical Center [employer] Phone: bun/Cre Vmolv48YorgJqunt Health Work Phone: Valcium [Mass/Vol]8.7 mg/dL8.6 - 10.4 mg/dLAshtabula County Medical Center [employer] Phone: Yhloride [Moles/Vol]100 mmol/L98 - 107 mmol/LMercy [employer] Work Phone: AO2 [Moles/Vol]25 mmol/L20 - 31 mmol/LMercy [employer] Work Phone: Freatinine [Mass/Vol]0.41 mg/dLLow0.5 - 0.9 mg/dLKettering Health MiamisburgShiftgig Phone: GFR >60>60 mL/minKettering Health MiamisburgPlaid Work Phone: GFR CommentMer [employer] Work Phone: comment on above:Average GFR for 50-59 years old: 93 mL/min/1.73sq m Chronic Kidney Disease: <60 mL/min/1.73sq m Kidney failure: <15 mL/min/1.73sq m eGFR calculated using average adult body mass. Additional eGFR calculator available at: http://www.Scoot [employer]oodle/multiple_crcl_2012.htm GFR Non->60>60 mL/minKettering Health MiamisburgShiftgig Phone: GFR StagingKettering Health MiamisburgShiftgig Phone: comment on above:Stage 1: Some kidney damage normal GFR Stage 2: Mild kidney damage GFR 60-89 Stage 3: Moderate kidney damage GFR 30-59 Stage 4: Severe kidney damage GFR 15-29 Stage 5: Severe kidney damage GFR <15 ESRD - chronic treatment by dialysis or transplant Glucose [Mass/Vol]208 mg/vVMeox78 - 99 mg/dLKettering Health MiamisburgShiftgig Phone: Interpretation and review of laboratory results AbnormalKettering Health MiamisburgShiftgig Phone: potassium [Moles/Vol]4.1 mmol/L3.7 - 5.3 mmol/LMuniversity hospitals cleveland medical centery [employer] Work Phone: protein [Mass/Vol]6.9 g/dL6.4 - 8.3 g/dLKettering Health MiamisburgShiftgig Phone: sodium [Moles/Vol]137 mmol/L135 - 144 mmol/LMuniversity hospitals cleveland medical centery [employer] Work Phone: Urea nitrogen [Mass/Vol]12 mg/dL6 - 20 mg/dLKettering Health MiamisburgShiftgig Phone: Glucose, Whole BloodOrdered By: Gordo De Santiago on [id number] [Mass/Vol]214 mg/iVGcoa73 - 100 mg/dLKettering Health MiamisburgShiftgig Phone: Interpretation and review of laboratory results AbnormalKettering Health MiamisburgShiftgig Phone: lactic acid, plasmaOrdered By: Oliva Tristan on [id number] [Moles/Vol]1.2 mmol/L0.5 - 2.2 mmol/LMuniversity hospitals cleveland medical centery [employer] Work Phone: lactic Acid, Whole BloodNOT REPORTED0.7 - 2.1 mmol/L [facility] [employer] Work Phone: basic Metabolic Panel w/ Reflex to MGOrdered By: Albert Ibrahim on 73-99-1500Qpokx gap [Moles/Vol]13 mmol/L9 - 17 mmol/LMuniversity hospitals cleveland medical centery [employer] Work Phone: bun/Cre Qwjgs82CylzIrojf Health Work Phone: calcium [Mass/Vol]9.0 mg/dL8.6 - 10.4 mg/dLKettering Health MiamisburgShiftgig Phone: chloride [Moles/Vol]94 mmol/LLow98 - 107 mmol/LMuniversity hospitals cleveland medical centery [employer] Phone: cO2 [Moles/Vol]25 mmol/L20 - 31 mmol/LMuniversity hospitals cleveland medical centerThe Halo Group Work Phone: creatinine [Mass/Vol]0.47 mg/dLLow0.5 - 0.9 mg/dLKettering Health MiamisburgShiftgig Phone: GFR >60>60 mL/minKettering Health MiamisburgShiftgig Phone: GFR CommentKettering Health MiamisburgShiftgig Phone: comment on above:Average GFR for 50-59 years old: 93 mL/min/1.73sq m Chronic Kidney Disease: <60 mL/min/1.73sq m Kidney failure: <15 mL/min/1.73sq m eGFR calculated using average adult body mass. Additional eGFR calculator available at: http://www.Banyan.[employer]/multiple_crcl_2012.htm GFR Non->60>60 mL/minKettering Health MiamisburgShiftgig Phone: GFR StagingKettering Health MiamisburgShiftgig Phone: comment on above:Stage 1: Some kidney damage normal GFR Stage 2: Mild kidney damage GFR 60-89 Stage 3: Moderate kidney damage GFR 30-59 Stage 4: Severe kidney damage GFR 15-29 Stage 5: Severe kidney damage GFR <15 ESRD - chronic treatment by dialysis or transplant Glucose [Mass/Vol]160 mg/yLDvnq03 - 99 mg/dLSt[employer]ulus Technologies Phone: Interpretation and review of laboratory results AbnormalKettering Health MiamisburgShiftgig Phone: potassium [Moles/Vol]3.8 mmol/L3.7 - 5.3 mmol/LMSolutionary Phone: sodium [Moles/Vol]132 mmol/XDwo668 - 144 mmol/LMuniversity hospitals cleveland medical centery [employer] Phone: Urea nitrogen [Mass/Vol]13 mg/dL6 - 20 mg/dLKettering Health MiamisburgShiftgig Phone: cBC Auto DifferentialOrdered By: Albert Ibrahim on [id number] Eos #0.17[facility] Phone: absolute Immature Granulocyte0.13[facility] Phone: absolute Lymph #1.06LowKettering Health MiamisburgShiftgig Phone: absolute Denali #1.00[facility] Phone: basophils (Bld) [#/Vol]0.05 10*3/uLKettering Health MiamisburgShiftgig Phone: basophils/100 WBC (Bld)0 %0 - 2 %[employer] Phone: differential TypeNOT REPORTEDMerShiftgig Phone: eosinophils/100 WBC (Bld)1 %1 - 4 %[employer] Phone: erythrocyte distribution width (RBC) [Ratio]14.4 %11.8 - 14.4 %[employer] Phone: Hematocrit (Bld) [Volume fraction]45.6 %36.3 - 47.1 % [employer] Phone: Hemoglobin (Bld) [Mass/Vol]14.5 g/dL11.9 - 15.1 g/dL [employer] Phone: Immature granulocytes/100 WBC (Bld)1 %Zixd8DsttvShiftgig Phone: Interpretation and review of laboratory results AbnormalKettering Health MiamisburgShiftgig Phone: Lymphocytes/100 WBC (Bld)6 %Low24 - 43 %[employer] Phone: MCH (RBC) [Entitic mass]29.6 pg25.2 - 33.5 pgKettering Health MiamisburgShiftgig Phone: MCHC (RBC) [Mass/Vol]31.8 g/dL28.4 - 34.8 g/dLKettering Health MiamisburgShiftgig Phone: MCV (RBC) [Entitic vol]93.1 fL82.6 - 102.9 fLKettering Health MiamisburgShiftgig Phone: Monocytes/100 WBC (Bld)5 %3 - 12 %[employer] Phone: NRBC Automated0.00.0 per 100 WBCKettering Health MiamisburgShiftgig Phone: platelet EstimateNOT REPORTEDKettering Health MiamisburgShiftgig Phone: Alatelet mean volume (Bld) [Entitic vol]9.5 fL8.1 - 13.5 fLKettering Health MiamisburgShiftgig Phone: Platelets (Bld) [#/Vol]216 10*3/uLKettering Health MiamisburgShiftgig Phone: RBC (Bld) [#/Vol]4.90 10*6/uL3.95 - 5.11 m/[employer] Phone: RBC morphology finding Nom (Bld)NOT REPORTEDKettering Health MiamisburgShiftgig Phone: segmented neutrophils/100 WBC (Bld)87 %High36 - 65 % [employer] Phone: segs Jqtwaaad93.02City HospitalSt[employer] Phone: WBC (Bld) [#/Vol]18.4 10*3/uLCity HospitalStimulus Technologies Phone: WBC MorphologyNOT REPORTEDSt[employer] Technologies Phone: cT CHEST W CONTRASTOrdered By: Albert Ibrahim on 59-05-8210Syl/increased bilateral ground-glass infiltrates. Differential considerations include infectious, inflammatory, and neoplastic etiologies. Prominent pulmonary artery may reflect pulmonary artery hypertension. This may account for the right hilar fullness as no distinct mass or pathologic lymphadenopathy is noted.[employer] Phone: eXAMINATION: CT OF THE CHEST WITH [...] is larger than the ascending aorta and lbxdoqcg35 mm in diameter. Calcific coronary artery disease noted. No hilar mass. Right and left pulmonary arteries appear prominent bilaterally. Lungs/pleura: Bilateral patchy ground-glass infiltrates. Right middle lobe consolidation. Upper Abdomen: Normal Soft Tissues/Bones: [employer] Phone: edi, [facility] Incoming Radiant Results From [employer] - 04/21/2019 8:41 PM EST EXAMINATION: CT [...] distinct mass or pathologic lymphadenopathy is noted. [employer] Phone: Hepatic function panelOrdered By: Wesly Whitten on 03-05-7763Llxrfrr [Mass/Vol]3.9 g/dL3.5 - 5.2 g/dLSt[employer] Phone: albumin/Globulin [Mass ratio]1.3 {ratio}[employer] Phone: aLP [Catalytic activity/Vol]95 U/L35 - 104 U/LMSolutionary Phone: aLT [Catalytic activity/Vol]10 U/L5 - 33 U/VISup Phone: aST [Catalytic activity/Vol]13 U/L<32[employer] Phone: bilirubin [Mass/Vol]0.33 mg/dL0.3 - 1.2 mg/dLSt[employer] Phone: bilirubin, IndirectCANNOT BE CALCULATED0 - 1 mg/dL [employer] Phone: bilirubin.indirect [Mass/Vol]mg/dL<0.31 mg/dLAshtabula County [facility] Work Phone: GlobulinNOT REPORTED1.5 - 3.8 g/dLMercy Health Work Phone: protein [Mass/Vol]6.9 g/dL6.4 - 8.3 g/dLAshtabula County [facility] Work Phone: lactic AcidOrdered By: Albert Ibrahim on 04-21-2019 Lactate [Moles/Vol]0.6 mmol/L0.5 - 2.2 mmol/LMercy Health Work Phone: [phone]-VFYNbvyede By: Wesly Whitten on [phone] Coag (PPP) [Relative time]1.0 {INR}[facility] [employer] Work Phone: pT Coag (PPP) [Time]10 sMercy Health Work Phone: UrinalysisOrdered By: Wesly Whitten on 04-21-2019 Bilirubin UrineNegativeNEGATIVEMerAppAddictive Health Work Phone: color, UAYELLOWYELLOWMer Health Work Phone: Glucose, UrNegativeNEGATIVEMercy Health Work Phone: Interpretation and review of laboratory results AbnormalAshtabula County Medical Center [facility] Work Phone: Ketones Ql (U)NegativeNEGATIVEMercy Health Work Phone: leukocyte esterase Test strip Ql (U)NegativeNEGATIVE [facility] Work Phone: Nitrite, UrineNegativeNEGATIVEMercy Health Work Phone: pH, UA6.5Mer Health Work Phone: protein, UANegativeNEGATIVEMercy Health Work Phone: specific [place], UA<1.005LowMer Health Work Phone: Turbidity UACLEARCLEARAshtabula County Medical Center [employer] Phone: Urinalysis CommentsNOT REPORTEDKettering Health MiamisburgShiftgig Phone: Urine HgbNegativeNEGATIVEAshtabula County Medical Center [employer] Phone: Urobilinogen, UrineNormalNormalAshtabula County Medical Center [employer] Phone: XR CHEST STANDARD (2 VW)Ordered By: Albert Ibrahim on 88-09-9028Urx right hilar fullness. Mild edema. Recommend CT chest with IV contrast.[employer] Phone: eXAMINATION: TWO XRAY VIEWS OF THE CHEST 04/21/2019 6:14 pm COMPARISON: January 13, 2019 HISTORY: ORDERING SYSTEM PROVIDED HISTORY: cough TECHNOLOGIST PROVIDED HISTORY: cough FINDINGS: New right hilarfullness. Mild edema. Small bilateral pleural effusions. Heart and mediastinum normal. Bony thorax normal.[employer] Phone: edi, pn Incoming Radiant Results From [employer] - 04/21/2019 6:21 PM EST EXAMINATION: TWO XRAY VIEWS OF THE CHEST 04/21/2019 6:14 pm COMPARISON: January 13, 2019 HISTORY: ORDERING SYSTEM PROVIDED HISTORY: cough TECHNOLOGIST PROVIDED HISTORY: cough FINDINGS: New right hilar fullness. Mild edema. Small bilateral pleural effusions. Heart and mediastinum normal. Bony thorax normal. IMPRESSION: New right hilar fullness. Mild edema. Recommend CT chest with IV contrast. [employer] Phone: basic Metabolic Panel w/ Reflex to MGOrdered By: Harish Sebastian on 25-24-5532Vdhot gap [Moles/Vol]12 mmol/L9 - 17 mmol/LMuniversity hospitals cleveland medical centery [employer] Phone: bun/Cre Owvwb88JkffLynou Health Work Phone: calcium [Mass/Vol]9.2 mg/dL8.6 - 10.4 mg/dLKettering Health MiamisburgShiftgig Phone: chloride [Moles/Vol]95 mmol/LLow98 - 107 mmol/LMZeusCircassia Phone: cO2 [Moles/Vol]28 mmol/L20 - 31 mmol/LMSolutionary Phone: creatinine [Mass/Vol]0.66 mg/dL0.5 - 0.9 mg/dLKettering Health MiamisburgShiftgig Phone: GFR >60>60 mL/minKettering Health MiamisburgShiftgig Phone: GFR CommentKettering Health MiamisburgShiftgig Phone: comment on above:Average GFR for 50-59 years old: 93 mL/min/1.73sq m Chronic Kidney Disease: <60 mL/min/1.73sq m Kidney failure: <15 mL/min/1.73sq m eGFR calculated using average adult body mass. Additional eGFR calculator available at: http://www.Scoot & Doodle/multiple_crcl_2012.htm GFR Non->60>60 mL/minKettering Health MiamisburgShiftgig Phone: GFR StagingKettering Health MiamisburgShiftgig Phone: comment on above:Stage 1: Some kidney damage normal GFR Stage 2: Mild kidney damage GFR 60-89 Stage 3: Moderate kidney damage GFR 30-59 Stage 4: Severe kidney damage GFR 15-29 Stage 5: Severe kidney damage GFR <15 ESRD - chronic treatment by dialysis or transplant Glucose [Mass/Vol]105 mg/qPZxmt78 - 99 mg/dLKettering Health MiamisburgShiftgig Phone: Interpretation and review of laboratory results AbnormalKettering Health MiamisburgShiftgig Phone: potassium [Moles/Vol]4.6 mmol/L3.7 - 5.3 mmol/LMuniversity hospitals cleveland medical centery [employer] Work Phone: sodium [Moles/Vol]135 mmol/L135 - 144 mmol/LMZeusy [employer] Phone: Urea nitrogen [Mass/Vol]15 mg/dL6 - 20 mg/dLKettering Health MiamisburgShiftgig Phone: cBC Auto DifferentialOrdered By: Harish Sebastian on 42-80-2160Zemzpzvj Eos #0.50HighKettering Health MiamisburgShiftgig Phone: absolute Immature Granulocyte0.03[facility]Shift[facility] Phone: absolute Lymph #2.66[facility] Phone: absolute Denali #0.65[facility] Phone: basophils (Bld) [#/Vol]0.08 10*3/uLKettering Health MiamisburgShiftgig Phone: basophils/100 WBC (Bld)1 %0 - 2 %[employer] Phone: differential TypeNOT REPORTEDKettering Health MiamisburgShiftgig Phone: eosinophils/100 WBC (Bld)5 %High1 - 4 %[employer] Phone: erythrocyte distribution width (RBC) [Ratio]14.0 %11.8 - 14.4 %[employer] Phone: Hematocrit (Bld) [Volume fraction]48.8 %High36.3 - 47.1 %[employer] Phone: Hemoglobin (Bld) [Mass/Vol]15.3 g/yJQpuf67.9 - 15.1 g/dLKettering Health MiamisburgShiftgig Phone: Immature granulocytes/100 WBC (Bld)0 %0[facility]Shift[facility] Phone: Interpretation and review of laboratory results AbnormalKettering Health MiamisburgShiftgig Phone: lymphocytes/100 WBC (Bld)25 %24 - 43 %[employer] Phone: MCH (RBC) [Entitic mass]29.4 pg25.2 - 33.5 pgKettering Health MiamisburgShiftgig Phone: MCHC (RBC) [Mass/Vol]31.4 g/dL28.4 - 34.8 g/dLSt[employer] Phone: MCV (RBC) [Entitic vol]93.8 fL82.6 - 102.9 fLStimulus Technologies Phone: Monocytes/100 WBC (Bld)6 %3 - 12 %[employer] Phone: NRBC Automated0.00.0 per 100 WBCStimulus Technologies Phone: platelet EstimateNOT REPORTEDStimulus Technologies Phone: platelet mean volume (Bld) [Entitic vol]9.3 fL8.1 - 13.5 fLStimulus Technologies Phone: Platelets (Bld) [#/Vol]275 10*3/uLSt[employer] Phone: RBC (Bld) [#/Vol]5.20 10*6/uLHigh3.95 - 5.11 m/uLStimulus Technologies Phone: rBC morphology finding Nom (Bld)NOT REPORTEDKettering Health MiamisburgShiftgig Phone: segmented neutrophils/100 WBC (Bld)63 %36 - 65 %[employer] Phone: segs Absolute6.54[employer] Phone: WBC (Bld) [#/Vol]10.5 10*3/Shiftg[employer] Phone: WBC MorphologyNOT REPORTEDStimulus Technologies Phone: cT Head WO ContrastOrdered By: Harish Sebastian on [id number] acute intracranial abnormality.[employer] Phone: eXAMINATION: CT OF THE HEAD WITHOUT [...] abnormality of the visualized skull or soft tissues.[employer] Phone: edi, [facility] Incoming Radiant Results From Tranz - 04/12/2019 2:07 PM EST EXAMINATION: CT [...] soft tissues. IMPRESSION: No acute intracranial abnormality. [employer] Phone: No Panel InformationOrdered By: Harish Sebastian on [id number] spine: 1. Mild to moderate degenerative changes [...] CMC joint. 3. No acute fracture or dislocation.[employer] Phone: eXAMINATION: THREE XRAY VIEWS OF THE [...] in the capitate. Atherosclerotic calcification of the vasculature.[employer] Work Phone: eroseann, Bridgette Incoming Radiant Results From Nelbee/BitTorrent - 04/12/2019 11:50 AM EST EXAMINATION: THREE [...] joint. 3. No acute fracture or dislocation. [employer] Phone: TroponinOrdered By: Harish Sebastian on 04-12-2019 Troponin Inter[employer] Phone: comment on above:Reference Range: <0.03 Within reference range. 0.03-0.09 Possible myocardial damage. Repeat at appropriate intervals to rule out chronic elevation. >= 0.10 Indicative of myocardial damage. Patients with high levels of Biotin oral intake (i.e >5mg/day) may have falsely decreased Troponin T levels. Samples collected within 8 hours of biotin intake may require additional information for diagnosis. Troponin T<0.03<0.03 ng/mLKettering Health MiamisburgShiftgig Phone: comment on above:Troponin T results cannot be compared to Troponin-I results.Troponin, High SensitivityNOT REPORTED0 - 14 ng/LMSolutionary Phone: Neurosurgery Office/Clinic Noteon 03-02-2019 Neurosurgery Office/Clinic NoteChief Complaint patient states back History of Present Illness Jonatan is here to follow up on low back coupled with bilateral leg pain. There is subjective weakness. There is paresthesia in both feet as well as stabbing pain. She reports symptoms consistent with claudication. She completed imaging at [facility], but did not bring this with her [...] treatments: PM, water therapy (3 years ago, [facility], [facility]), home exercise, gabapentin, ibuprofen, percocet, MR, steroid, [...] DM, unknown control 5. hx of CAD, GA and cardiac stenting 6. hx of prior blood clot (abdominal) with vascular graft 7. tobacco use 8. plavix use Plan: 1. referral to tertiary medical center, she prefers [facility] 2. f/u here as needed we reviewed the lumbar MRI report/findings in office, no imaging available to review at today's visit I have reviewed her case with Dr. Rivers, recommendation for referral to tertiary [facility] secondary to surgical risk we discussed locations, Jonatan would like referral to [place]- this was initiated at today's visit she [...] Exercise frequency: 1-2 times/week. Exercise type: Swimming, [employer]y-Water Therapy-1 year ago-3-5 sessions did not help [...] signed by Deion Fritz CNP 03/02/19 11:27 ESTNormUniversity Hospitals Lake [facility] Provider Letteron [phone] Letter Vahid Nagy CNP Re: Jonatan Sher Date of Visit: 03/02/2019 Dear Vahid Nagy, Thank you for referring Jonatan to my office. Attached you will find my office note. Please let me know if you have any questions or concerns. Sincerely, Deion Fritz CNP [facility] [place] [address] The following document(s) were included in the letter: March 02, 2019 11:14:11 EST - (03/02/2019) Neurosurgery Office Visit Note NormalWilson Memorial HospitalCBC auto differentialon [id number] (Bld) [#/Vol]0.06 10*3/[facility] [place], KYBasophils/100 WBC (Bld)1 %0 - 2 % [facility], KYDifferential TypeNOT REPORTEDSt. [facility] Of God [facility] [place], KYEosinophils (Bld) [#/Vol]0.34 10*3/[facility] [place], KYEosinophils/100 WBC (Bld)4 %1 - 4 %[facility]- [place], KYErythrocyte distribution width (RBC) [Ratio]14.5 %High11.8 - 14.4 %[facility], CARLOSHematocrit (Bld) [Volume fraction]46.3 %36.3 - 47.1 %[facility] [place], CARLOSHemoglobin (Bld) [Mass/Vol]14.9 g/dL11.9 - 15.1 g/dLSt. John Of God Hospital [place], CAImmature granulocytes (Bld) [#/Vol]1 %Epyl3OwxohPomerene Hospital- [place], [place] Immature granulocytes (Bld) [#/Vol]0.05 10*3/[facility]- [place] Interpretation and review of laboratory resultsAbnormalGreen Cross Hospital, [place] Lymphocytes (Bld) [#/Vol]2.65 10*3/[facility]- [place], CALymphocytes/100 WBC (Bld)28 %24 - 43 %[facility], CAMCH (RBC) [Entitic mass]29.9 pg25.2 - 33.5 pgGreen Cross Hospital, CAMCHC (RBC) [Mass/Vol]32.2 g/dL28.4 - 34.8 g/dLGreen Cross Hospital, CAMCV (RBC) [Entitic vol]92.8 fL82.6 - 102.9 fLGreen Cross Hospital, [place] Monocytes (Bld) [#/Vol]0.59 10*3/[facility]- [place], CARLOSMonocytes/100 WBC (Bld)6 %3 - 12 %[facility], CARLOSPlatelet mean volume (Bld) [Entitic vol]9.6 fL8.1 - 13.5 fLGreen Cross Hospital, KYPlatelets (Bld) [#/Vol]NOT REPORTEDGreen Cross Hospital, KYPlatelets (Bld) [#/Vol]265 10*3/[facility]- [place], KYRBC (Bld) [#/Vol]4.99 10*6/uL3.95 - 5.11 m/[facility]- [place], CARBC morphology finding Nom (Bld)NOT REPORTEDGreen Cross Hospital, CASegmented neutrophils/100 WBC (Bld)60 %36 - 65 % [facility], KYSegs Absolute5.89[facility]- [place], KYWBC (Bld) [#/Vol]9.6 10*3/uLGreen Cross Hospital, KYWBC (Bld) [#/Vol]0.0 10*3/uL0.0 per 100 WBCGreen Cross Hospital, KYWBC MorphologyNOT REPORTEDGreen Cross Hospital, KYCTA ABDOMINAL AORTA W BILAT RUNOFF W CONTRASTon [id number], Mhpn Incoming Radiant Results From Nelbee/Pacs - 02/23/2019 7:00 PM EST EXAMINATION: CTA [...] arteries. Circumferential atherosclerotic plaque identified. The distal sitka abdominal aorta is completely occluded, as is the proximal aspect of the common iliac arteries bilaterally. There is reconstitution of flow within the sitka common iliac artery bifurcation, with flow into the internal and external iliac arteries bilaterally. There is also an aorto bi femoral bypass, within asked most this to the common femoral arteries bilaterally. There was a previous fem-fem bypass graft which has failed. Outflow: Right lower extremity: The sitka SFA is completely occluded. The aortofemoral anastomosis [...] is chronic occlusion of the distal abdominal sitka aorta through the level of the common iliac arteries, with reconstitution through collateral flow at the level of the internal and external iliac arteries bilaterally. Because of this chronic sitka abdominal aortic occlusion, the patient has undergone [...] the abdomen and pelvis without acute process. [facility] HospitalAmy acute intra aortic thrombus is identified. There is chronic occlusion of the distal abdominal sitka aorta through the level of the common iliac arteries, with reconstitution through collateral flow at the level of the internal and external iliac arteries bilaterally. Because of this chronic sitka abdominal aortic occlusion, the patient has undergone [...] in the abdomen and pelvis without acute process.[facility] HospitalDANIELEAMINATION: CTA OF THE AORTA WITH LOWER [...] arteries. Circumferential atherosclerotic plaque identified. The distal sitka abdominal aorta is completely occluded, as is the proximal aspect of the common iliac arteries bilaterally. There is reconstitution of flow within the sitka common iliac artery bifurcation, with flow into the internal and external iliac arteries bilaterally. There is also an aorto bi femoral bypass, within asked most this to the common femoral arteries bilaterally. There was a previous fem- fem bypassgraft which has failed. Outflow: Right lower extremity: The sitka SFA is completely occluded. The aortofemoral anastomosis [...] artery as it crosses over the distal tibia.[facility]- [place], [place] Comprehensive metabolic panelon [id number] [Mass/Vol]3.7 g/dL3.5 - 5.2 g/dLPomerene Hospital- [place], KYAlbumin/Globulin [Mass ratio]1.1 {ratio}[facility]- [place], KYALP [Catalytic activity/Vol]85 U/L35 - 104 U/LMerc Health- [place], KYALT [Catalytic activity/Vol]13 U/L5 - 33 U/LMgood [facility]- [place], KYAnion gap [Moles/Vol]12 mmol/L9 - 17 mmol/LMgood samaritan hospital [facility]- [place], KYAST [Catalytic activity/Vol]13 U/L<32[facility]- [place], KYBilirubin Ql (U)<0.10Low0.3 - 1.2 mg/dLAshtabula [facility]- [place], KYBun/Cre Cwlsi37GozpKsbzb Health- [place], KYCalcium [Mass/Vol]9.1 mg/dL8.6 - 10.4 mg/dLAshtabula County [facility]- [place], KYChloride [Moles/Vol]100 mmol/L98 - 107 mmol/LMgood samaritan hospital [facility]- [place], KYCO2 [Moles/Vol]27 mmol/L20 - 31 mmol/L [facility]- [place], KYCreatinine [Mass/Vol]0.53 mg/dL0.5 - 0.9 mg/dLPomerene Hospital- [place], KYGFR >60>60 mL/minAshtabula [facility]- [place], KYGFR Non->60>60 mL/minAshtabula County Medical Center [facility]- [place], KYGlucose [Mass/Vol]139 mg/mZEzrq39 - 99 mg/dLPomerene Hospital- [place], KYInterpretation and review of laboratory resultsAbnormal [facility]- [place], KYPotassium [Moles/Vol]3.8 mmol/L3.7 - 5.3 mmol/LMgood samaritan hospital [facility]- [place], KYProtein [Mass/Vol]7.0 g/dL6.4 - 8.3 g/dLAshtabula [facility]- [place], KYSodium [Moles/Vol]139 mmol/L135 - 144 mmol/LMgood samaritan hospital [facility]- [place], KYUrea nitrogen [Mass/Vol]14 mg/dL6 - 20 mg/dLGreen Cross Hospital, KYLipaseon [id number] [Catalytic activity/Vol]20 U/L13 - 60 U/LMercHeritage Hospital, CARLOSMRI LUMBAR SPINE WO CONTRASTon . Degenerative changes in the lumbar spine lead severe spinal canal stenosis and moderate bilateral neural foraminal narrowing at L4- L5. 2. Moderate to severe spinal canal stenosis and moderate right neural foraminal narrowing at L5-S1. 3. Possible thrombus in the abdominal aorta. Recommend CTA ofthe abdomen and pelvis.[facility], CARLOSEXAMINATION: MRI OF THE LUMBAR SPINE [...] faxed to the office of the licensed caregiver.[facility] Cross HospitalAudelia Mhpn Incoming Radiant Results From Nelbee/BitTorrent - 02/23/2019 1:49 PM EST EXAMINATION: MRI [...] Recommend CTA of the abdomen and pelvis. [employer] PASport NginMetabolic Panelon [id number]/1.73 sq M predicted among non-blacks MDRD (S/P/Bld) [Vol rate/Area][employer] CARLOSComment on above: Average GFR for 50-59 years old: 93 mL/min/1.73sq m Chronic Kidney Disease: <60 mL/min/1.73sq m Kidney failure: <15 mL/min/1.73sq m eGFR calculated using average adult body mass. Additional eGFR calculator available at: http://www.Scoot & Doodle/multiple_crcl_2012.htm Stage 1: Some kidney damage normal GFR Stage 2: Mild kidney damage GFR 60-89 Stage 3: Moderate kidney damage GFR 30-59 Stage 4: Severe kidney damage GFR 15-29 Stage 5: Severe kidney damage GFR <15 ESRD - chronic treatment by dialysis or transplant Protime-INRon [id number] Coag (PPP) [Relative time]1.0 {INR}[facility]- [place], KYPT Coag (PPP) [Time]10 sMHolzer Health System [place], KYTroponinon [id number] I.cardiac [Mass/Vol][facility] [place], KYComment on above:Reference Range: <0.03 Within reference range. 0.03-0.09 Possible myocardial damage. Repeat at appropriate intervals to rule out chronic elevation. >= 0.10 Indicative of myocardial damage. Patients with high levels of Biotin oral intake (i.e >5mg/day) may have falsely decreased Troponin T levels. Samples collected within 8 hours of biotin intake may require additional information for diagnosis. Troponin T.cardiac [Mass/Vol]ug/L<0.03 ng/mLGreen Cross Hospital, KYComment on above:Troponin T results cannot be compared to Troponin-I results.Troponin, High SensitivityNOT REPORTED0 - 14 ng/LMercy Health- [place], KYUrinalysis with microscopicon [id number], UANOT REPORTEDNoneMey Health- [place], [place] Bacteria, UANOT REPORTEDNoneMercy Health- [place], KYBilirubin UrineNegativeNEGATIVE [facility]- [place], KYCasts UANOT REPORTED/LPFMercy Health- [place], KYColor, UAYELLOW YELLOWKettering Health Miamisburgcy Health- [place], KYCrystals UANOT REPORTEDNone /HPFMercy Health- [place], [place] Epithelial Cells UANoneMey Health- [place], KYGlucose, UrNegativeNEGATIVEAshtabula [facility]- [place], KYInterpretation and review of laboratory resultsAbnormalMercy Health- [place], KYKetones Ql (U)NegativeNEGATIVEMercy Health- [place], KYLeukocyte esterase Test strip Ql (U)NegativeNEGATIVEMercy Health- [place], KYMucus, UANOT REPORTEDNoneMercy Health- [place], KYNitrite, UrineNegativeNEGATIVEMercy Health- [place], KYOther Observations UANOT REPORTEDNOT REQ.[facility]- [place], KYpH, UA7.0[facility]- [place], KYProtein (U) [Mass/Vol]NegativeNEGATIVEMercy Health- [place], KYRBC (U) [#/Vol]NoneMercy Health- [place], KYRenal Epithelial, UrineNOT REPORTED0 /HPFMercy Health- [place], KYSpecific [place], UA<1.005LowMercy Health- [place], KYTrichomonas, UA NOT REPORTEDNoneMercy Health- [place], KYTurbidity UACLEARCLEARMercy Health- [place], [place] Urinalysis CommentsNOT REPORTEDMercy Health- [place], KYUrine HgbNegativeNEGATIVE [facility]- [place], KYUrobilinogen, UrineNormalNormalMercy Health- [place], KYWBC, UA NoneMercy Health- [place], KYYeast, UANOT REPORTEDNoneMercy Health- [place], [place]-[facility]- [place], KYNeurosurgery Office/Clinic Noteon [id number] Office/Clinic NoteChief Complaint patient states back History [...] treatments: PM, water therapy (3 years ago, [facility], worse), home exercise, gabapentin, ibuprofen, percocet, [...] DM, unknown control 5. hx of CAD, [place] 6. hx of prior blood clot 7. tobacco use 8. plavix use Plan: 1. MRI lumbar 2. XR lumbar 3. obtain current A1C 4. f/u on completion recommend MRI and XR lumbar with flex ex views, [place] to obtain in [place] we will obtain A1C info from her [...] Exercise frequency: 1-2 times/week. Exercise type: Swimming, [employer]y-Water Therapy-1 year ago-3-5 sessions did not help [...] by Deion Fritz CNP [place] 02/02/19 08:21 ESTNormUniversity Hospitals Lake West [facility] Center Provider Letteron [phone] Letter Vahid Nagy CNP [address] [place] [address] Re: Jonatan Olivarez Date of Visit: 01/28/2019 Dear Vahid Nagy, Thank you for referring Jonatan to my office. Attached you will find my office note. Please let me know if you have any questions or concerns. Sincerely, Deion Fritz CNP [facility] [address] [address] The following document(s) were included in the letter: January 28, 2019 10:57:17 EDT - (01/28/2019) Neurosurgery Office Visit Note NormalWilson Memorial HospitalBasic Metabolic Panel w/ Reflex to MGon [id number] gap [Moles/Vol]11 mmol/L9 - 17 mmol/LMercy Health- [place], KYBun/Cre Sqpqx27Dtrrn Health- [place], KYCalcium [Mass/Vol]9.4 mg/dL8.6 - 10.4 mg/dLAshtabula County [facility]- [place], KYChloride [Moles/Vol]103 mmol/L98 - 107 mmol/LMercy Health- [place], [place] CO2 [Moles/Vol]28 mmol/L20 - 31 mmol/LMercy Health- [place], KYCreatinine [Mass/Vol] 0.56 mg/dL0.5 - 0.9 mg/dLKettering Health Miamisburgcy Health- [place], KYGFR >60>60 mL/min [facility]- [place], KYGFR Non->60>60 mL/minAshtabula County Medical Center [facility]- [place], [place] Glucose [Mass/Vol]126 mg/sVHivk81 - 99 mg/dLAshtabula County Medical Center [facility]- [place], KYInterpretation and review of laboratory resultsAbnormalAshtabula County Medical Center [facility]- [place], KYPotassium [Moles/Vol]4.0 mmol/L3.7 - 5.3 mmol/LMercy Health- [place], KYSodium [Moles/Vol]142 mmol/L135 - 144 mmol/LMercy Health- [place], KYUrea nitrogen [Mass/Vol]8 mg/dL6 - 20 mg/dLGreen Cross Hospital, KYCBC Auto Differentialon [id number] (Bld) [#/Vol]0.05 10*3/[facility], KYBasophils/100 WBC (Bld)1 %0 - 2 %[facility], KYDifferential TypeNOT REPORTEDGreen Cross Hospital, KYEosinophils (Bld) [#/Vol]0.24 10*3/[facility], KYEosinophils/100 WBC (Bld)3 %1 - 4 %[facility], KYErythrocyte distribution width (RBC) [Ratio]14.5 %High11.8 - 14.4 %[facility], KYHematocrit (Bld) [Volume fraction]45.7 %36.3 - 47.1 %[facility], KYHemoglobin (Bld) [Mass/Vol]14.7 g/dL11.9 - 15.1 g/dLGreen Cross Hospital, KYImmature granulocytes (Bld) [#/Vol]0 %0[facility], KYImmature granulocytes (Bld) [#/Vol]10*3/[facility], KYInterpretation and review of laboratory resultsAbnormBrown Memorial Hospital, KYLymphocytes (Bld) [#/Vol]1.16 10*3/[facility], KYLymphocytes/100 WBC (Bld)15 %Low24 - 43 %[facility], KYMCH (RBC) [Entitic mass]29.2 pg25.2 - 33.5 pgGreen Cross Hospital, [place] MCHC (RBC) [Mass/Vol]32.2 g/dL28.4 - 34.8 g/dLGreen Cross Hospital, KYMCV (RBC) [Entitic vol]90.7 fL82.6 - 102.9 fLGreen Cross Hospital, KYMonocytes (Bld) [#/Vol] 0.58 10*3/[facility], KYMonocytes/100 WBC (Bld)7 %3 - 12 %[facility]- [place], CARLOSPlatelet mean volume (Bld) [Entitic vol]9.2 fL8.1 - 13.5 fLPomerene Hospital- [place], CARLOSPlatelets (Bld) [#/Vol]NOT REPORTEDPomerene Hospital- [place], KYPlatelets (Bld) [#/Vol]201 10*3/uLPomerene Hospital- [place], KYRBC (Bld) [#/Vol]5.04 10*6/uL3.95 - 5.11 m/uLPomerene Hospital- [place], CARLOSRBC morphology finding Nom (Bld)NOT REPORTEDGreen Cross Hospital, CARLOSSegmented neutrophils/100 WBC (Bld)74 %High36 - 65 %[facility] HospitalPictureHealing, CARLOSSegs Absolute5.79[facility], KYWBC (Bld) [#/Vol]0.0 10*3/uL0.0 per 100 WBCPomerene Hospital- [place], CARLOSWBC (Bld) [#/Vol]7.8 10*3/uLPomerene Hospital- [place], KYWBC MorphologyNOT REPORTEDPomerene Hospital- [place], CARLOSMetabolic Panelon [id number]/1.73 sq M predicted among non-blacks MDRD (S/P/Bld) [Vol rate/Area]Pomerene HospitalTheocorp Holding Company PACARLOSComment on above:Stage 1: Some kidney damage normal [...] body mass. Additional eGFR calculator available at: http://www.Banyan.[employer]/multiple_crcl_2012.htm Otheron [id number], Mhpn Incoming Radiant Results From [place]/Pacs - 01/13/2019 3:55 PM EDT EXAMINATION: THREE [...] relate to a biceps tendon sheath body. [facility], KYEXAMINATION: THREE XRAY VIEWS OF THE [...] may relate to a biceps tendon sheath body.[facility], KY1. Normal cervical spine alignment with no acute abnormality. 2. Multilevel cervical degenerative changes. 3. Stable appearance of the chest with mediastinal/hilar lymphadenopathy. No acute traumaticthoracic abnormality. 4. Normal left shoulder alignment with milder glenohumeral arthropathy. No acute abnormality. 5. 4 mm ossicle of the left proximal arm which may relate to a biceps tendon sheathbody.Galion Hospitalniencompass health rehabilitation hospital [facility] [id number] I.cardiac [Mass/Vol][place], KYComment on above: Reference Range: <0.03 Within reference range. 0.03-0.09 Possible myocardial damage. Repeat at appropriate intervals to rule out chronic elevation. >= 0.10 Indicative of myocardial damage. Patients with high levels of Biotin oral intake (i.e >5mg/day) may have falsely decreased Troponin T levels. Samples collected within 8 hours of biotin intake may require additional information for diagnosis. Troponin T.cardiac [Mass/Vol]ug/L<0.03 ng/mLGreen Cross Hospital, CAComment on above:Troponin T results cannot be compared to Troponin-I results.Troponin, High SensitivityNOT REPORTED0 - 14 ng/LMBarberton Citizens Hospitaloponin I.cardiac [Mass/Vol][facility], CAComment on above:Reference Range: <0.03 Within reference range. [...] ng/LMercy Health- [place], KYUrinalysis, reflex to microscopicon [id number] UrineNegativeNEGATIVEMercy Health- [place], [place] Color, UAYELLOWYELLOWMercy Health- [place], KYGlucose, UrNegativeNEGATIVEMercy Health- [place], KYKetones Ql (U)NegativeNEGATIVEMercy Health- [place], KYLeukocyte esterase Test strip Ql (U)NegativeNEGATIVEMercy Health- [place], KYNitrite, Urine NegativeNEGATIVEMercy Health- [place], KYpH, UA6.0[facility]- [place], KYProtein (U) [Mass/Vol]NegativeNEGATIVEMercy Health- [place], KYSpecific [place], UA1.015[facility]- [place], KYTurbidity UACLEARCLEARMercy Health- [place], KYUrinalysis CommentsNOT REPORTEDMercy Health- [place], KYUrine HgbNegativeNEGATIVEMercy Health- [place], [place] Urobilinogen, UrineNormalNormalMercy Health- [place], KYXR LUMBAR SPINE (2-3 VIEWS)on [id number]: THREE XRAY VIEWS OF THE LUMBAR SPINE [...] bilateral sacroiliac and hip alignment. No acute fracture.[facility]- [place], KYEdi, Mhpn Incoming Radiant Results From Nelbee/BitTorrent - 01/13/2019 3:55 PM EDT EXAMINATION: THREE [...] lumbar spine degenerative disc and joint disease. [facility] CA1. Normal lumbar spine alignment with no acute abnormality. 2. Multilevel lumbar spine degenerativedisc and joint disease.[facility], CAXR SHOULDER LEFT (MIN 2 VIEWS)on [id number] calcific tendinosis of left supraspinatus. Mild degenerative changes of the left glenohumeral joint. Mild degenerative changes of the left acromioclavicular joint.[facility], [place] EXAMINATION: THREE XRAY VIEWS OF THE LEFT SHOULDER 01/12/2019 3:48 pm COMPARISON: Left shoulder radiographs dated 08/03/2017 HISTORY: ORDERING SYSTEM PROVIDED HISTORY: Pain of left upper extremity FINDINGS: Mild calcific tendinosis of left supraspinatus. Mild degenerative changes of the left glenohu meral joint. Mild degenerative changes of the left acromioclavicular joint. Subacromial space is maintained.[facility] Cross HospitalAudelia Mhpn Incoming Radiant Results From Nelbee/BitTorrent - 01/12/2019 4:20 PM EDT EXAMINATION: THREE [...] degenerative changes of the left acromioclavicular joint. [facility], KYHematologyon [id number] (Bld) [Mass/Vol]Negative (NEG)[facility] Work Phone: Comment on above:Note: Responsible Observer: KLEBER TREJO ([id number])Laboratory - Microbiology and Antimicrobial susceptibilityOrdered By: Vahid Nagy on [id number] identified Cx Nom (Unsp spec)MANYAbnormal (NONE )[facility] Work Phone: Comment on above:Note: Responsible Observer: KLEBER TREJO ([id number])Laboratory - UrinalysisOrdered By: Vahid Nagy on 09-30-2018 Epithelial cells LM Ql (Urine sed)2 TO 5 /HPF(0-5 )[facility] Work Phone: Comment on above:Note: Responsible Observer: KLEBER [id number])Metabolic Panelon [id number].direct [Mass/Vol]Negative (NEG)[facility] Work Phone: Comment on above:Note: Responsible Observer: KLEBER TREJO ([id number])Glucose [Mass/Vol]Negative(NEG)[facility] Work Phone: Comment on above:Note: Responsible Observer: KLEBER TREJO ([id number])Protein [Mass/Vol]Negative(NEG)[facility] Work Phone: Comment on above:Note: Responsible Observer: KLEBER TREJO ([id number])No Panel InformationOrdered By: Vahid Nagy on 09-30-2018 Acetoacetic Acid,UrNegative(NEG )[facility] Work Phone: Comment on above:Note: Responsible Observer: KLEBER TREJO ([id number])Bilirubin, SemiQt,UrNegative(NEG )[facility] Work Phone: Comment on above:Note: Responsible Observer: KLEBER [id number])Casts10 TO 20 HYALINE /LPF(0-8 )[facility] Work Phone: Comment on above:Note: Reference range defined for non-centrifuged specimen.Responsible Observer: KLEBER TREJO ([id number]) Glucose,Semi-qnt,UrNegative(NEG )[facility] Work Phone: Comment on above:Note: Responsible Observer: KLEBER TREJO ([id number])Hemoglobin, UrNegative(NEG )[facility] Work Phone: Comment on above:Note: Responsible Observer: KLEBER TREJO ([id number])Leuckocyte EsteraseNegative(NEG )[facility] Work Phone: Comment on above:Note: Responsible Observer: KLEBER TREJO ([id number])Nitrite,UrPositiveAbnormal(NEG )[facility] Work Phone: Comment on above:Note: Responsible Observer: KLEBER TREJO ([id number])Protein, Semi-qnt,UrNegative(NEG )[facility] Work Phone: Comment on above:Note: Responsible Observer: KLEBER TREJO ([id number])Urine RBC's0 TO 2 /HPF(0-4 )[facility] Work Phone: Comment on above:Note: Reference range defined for non-centrifuged specimen.Responsible Observer: KLEBER TREJO ([id number])Urine WBC's0 TO 2 /HPF(0-5 )[facility] Work Phone: Comment on above:Note: Responsible Observer: KLEBER TREJO ([id number])OtherOrdered By: Vahid Nagy on [id number],Urine,CCSee Note [facility] Work Phone: Comment on above:Note: Specimen Description .CLEAN CATCH URINESpecial Requests NOT REPORTEDCulture KLEBSIELLA PNEUMONIAE >336402 CFU/MLReport Status FINAL 10/02/2018SUSCEPTIBILITYOrganism KLEBSIELLA PNEUMONIAEMethod MICAmikacin [...] <=20 SUSCEPTIBLEPiperacillin/Tazobactam <=4 SUSCEPTIBLEResponsible Observer: KLEBER TREJO ([id number])Reported PhysiciansSee NoteBerkshire Medical Center Work Phone: Comment on above:Note: Reported Physicians:Ordering: Attending: Vahid Calderón-----See NoteHealth [facility] Work Phone: Comment on above:Note: Responsible Observer: KLEBER TREJO ([id number])CommentNOT REPORTEDHealth [facility] Work Phone: [phone], RenalNOT REPORTED /HPF(0 )[facility] Work Phone: [phone] StrandsNOT REPORTED(NONE )[facility] Work Phone: Other ObservationsNOT REPORTED(NREQ )[facility] Work Phone: [phone] Lab:see noteBerkshire Medical Center Work Phone: Comment on above:Note: [employer] [address] [facility] [address] PH,Ur7.0(5.0-8.0 )[facility] Work Phone: Comment on above:Note: Responsible Observer: KLEBER TREJO ([id number])Reported PhysiciansSee NoteBerkshire Medical Center Work Phone: Comment on above:Note: Reported Physicians:Ordering: Joo Calderónpec. [place],Ur1.025(1.005-1.030 )[facility] Work Phone: Comment on above:Note: Responsible Observer: KLEBER TREJO ([id number])TrichomonasNOT REPORTED(NONE )[facility] Work Phone: TurbidityCLOUDYAbnormal(CLEAR )[facility] Work Phone: [phone] on above:Note: Responsible Observer: KLEBER [id number])Urobilinogen,UrNormal(NORM )[facility] Work Phone: Comment on above:Note: Responsible Observer: KLEBER TREJO ([id number])Otheron 43-80-1393Pbuhmugbxvc Acid,UrNegative(NEG)[facility] Work Phone: Comment on above:Note: Responsible Observer: KLEBER TREJO ([id number])Leuckocyte EsteraseNegative(NEG)[facility] Work Phone: Comment on above:Note: Responsible Observer: KLEBER TREJO ([id number])Nitrite,UrPositiveAbnormal(NEG)[facility] Work Phone: Comment on above:Note: Responsible Observer: KLEBER TREJO ([phone])RBC (U) [#/Vol]0 TO 2 /HPF(0-4)[facility] Work Phone: Comment on above:Note: Reference range defined for non-centrifuged specimen.Responsible Observer: KLEBER TREJO ([id number])Urinalysis Ordered By: Vahid Nagy on 94-67-0480Jfpocabcx sediment LM Ql (Urine sed)NOT REPORTED(NONE )[facility] Work Phone: [phone] (U)YELLOW(YEL )[facility] Work Phone: Comment on above:Note: Responsible Observer: KLEBER TREJO ([id number])Crystals LM Nom (Urine sed)NOT REPORTED /HPF(NONE )[facility] Work Phone: [phone] LM Ql (Urine sed)NOT REPORTED(NONE )[facility] Work Phone: Urinalysison 00-10-6172Zdvkwmce LM.HPF (Urine sed) [#/Area]MANYAbnormal(NONE)[facility] Work Phone: Comment on above:Note: Responsible Observer: KLEBER TREJO ([id number])Casts LM.LPF (Urine sed) [#/Area]10 TO 20 HYALINE /LPF(0-8)[facility] Work Phone: Comment on above:Note: Reference range defined for non-centrifuged specimen.Responsible Observer: KLEBER TREJO ([id number])Epithelial cells LM.HPF (Urine sed) [#/Area]2 TO 5 /HPF(0-5)[facility] Work Phone: Comment on above:Note: Responsible Observer: KLEBER TREJO ([id number])WBC (U) [#/Vol]0 TO 2 /HPF(0-5)[facility] Work Phone: Comment on above:Note: Responsible Observer: KLEBER TREJO ([id number])Laboratory - Specimen informationOrdered By: Vahid Nagy on 96-49-3745Vsabx (U)N/ANormalBerkshire Medical Center Work Phone: No Panel InformationOrdered By: Vahid Nagy on 42-85-6237Mgh Values NormalN/AAbnormal(NORMAL)[facility] Work Phone: [phone]/A(POS/NEG)[facility] Work Phone: BARN/A(POS/NEG)[facility] Work Phone: BUPN/A(POS/NEG)[facility] Work Phone: BZON/A(POS/NEG)[facility] Work Phone: COCN/A(POS/NEG)[facility] Work Phone: MDMAN/A(POS/NEG)[facility] Work Phone: METN/A(POS/NEG)[facility] Work Phone: [phone]/A(POS/NEG)[facility] Work Phone: [phone]/A(POS/NEG)[facility] Work Phone: OXYN/A(POS/NEG)[facility] Work Phone: PCPN/A(POS/NEG)[facility] Work Phone: Sent to LabN/A(Yes/No)[facility] Work Phone: Staff Members Dfporve9Pbirsq(1 or 2)[facility] Work Phone: THCN/A(POS/NEG)[facility] Work Phone: [phone] TempN/ANormal(90-100)[facility] Work Phone: [phone] - Chemistry and Chemistry - challenge Ordered By: Vahid Nagy on 14-69-7940Wxjgmhy [Mass/Vol]118 mg/dLAbnormal (80-100)[facility] Work Phone: Laboratory - Hematology and Cell countsOrdered By: Vahid Nagy on 06-06-4295ZaS1p (Bld) [Mass fraction]6.7 %Normal(<=7.0)[facility] Work Phone: Laboratory - Specimen informationOrdered By: Vahid Nagy on 10-23-8008Frkgb (U)NNormalBerkshire Medical Center Work Phone: No Panel InformationOrdered By: Vahid Nagy on 12-65-8527SLGAWgpqkf(POS/NEG)[facility] Work Phone: [phone](POS/NEG)[facility] Work Phone: BUPNNormal(POS/NEG)[facility] Work Phone: [phone](POS/NEG)[facility] Work Phone: [phone](POS/NEG)[facility] Work Phone: [phone](POS/NEG)[facility] Work Phone: [phone](POS/NEG)[facility] Work Phone: [phone](POS/NEG)[facility] Work Phone: [phone](POS/NEG)[facility] Work Phone: [phone](POS/NEG)[facility] Work Phone: [phone](POS/NEG)[facility] Work Phone: [phone] to LabNONormal(Yes/No)[facility] Work Phone: [phone] Members Xkhzaso8Luipuz(1 or 2)[facility] Work Phone: [phone](POS/NEG)[facility] Work Phone: [phone] TempNNormal(90-100)[facility] Work Phone: Metabolic Panelon 79-38-0033Knlglybpuz A1c/Hemoglobin.total mass fraction (Bld)6.60 %Invalid Interpretation Code< 7 [facility] Glucose mass blxe482.0 mg/dLInvalid Interpretation Code [facility] Hemoglobin A1c/Hemoglobin.total mass fraction (Bld)6.60 %< 7[facility] Glucose mass yvsr291.0 mg/dLBerkshire Medical Center aEROBIC CULTUREon 41-20-7532TNMQTKZ CULTURESPECIMEN NUMBER: [id number] Laboratories IncComment on above:Result Comment: AEROBIC CULTURE [...] identification is necessary,please contact the Microbiology laboratory.Pathology [employer] [address] [place], [place] [address]Laboratory Director: Albin Snyder M.D.CLIA No. [id number] CAP Accreditation No. [id number] Panelon 33-31-7597Erpkcdq mass conc98.0 mg/dLInvalid Interpretation CodeBerkshire Medical Center Glucose mass conc98.0 mg/dLBerkshire Medical Center Metabolic Panelon 27-30-9462Omjzsvh mass ulhw842.0 mg/dLInvalid Interpretation CodeBerkshire Medical Center Glucose mass faik885.0 mg/dLBerkshire Medical Center Metabolic Panelon 84-02-7831Yrmyrlt mass xikb718.0 mg/dLInvalid Interpretation CodeBerkshire Medical Center Glucose mass axnx456.0 mg/dLBerkshire Medical Center Metabolic Panelon 58-49-0827Rimindaafd A1c/Hemoglobin.total mass fraction (Bld)6.20 %Invalid Interpretation Code< 7 [facility] Glucose mass mgah243.0 mg/dLInvalid Interpretation Code [facility] Hemoglobin A1c/Hemoglobin.total mass fraction (Bld)6.20 %< 7[facility] Glucose mass crgs794.0 mg/dLBerkshire Medical Center otheron 03175=JnxvqplxbqLqmkcuz Interpretation CodeBerkshire Medical Center 0-N/AInvalid Interpretation [facility] 0Invalid Interpretation [facility] managing chronic illnessInvalid Interpretation Code [facility] Risk Level 2= 4-6Invalid Interpretation [facility] 5Invalid Interpretation [facility] 5281=JyWaydblc Interpretation [facility] 145519=HbiJcoxjqr Interpretation [facility] 0=N/AInvalid Interpretation [facility] Risk Level 2= 4-6[facility] 5[facility] 0[facility] [id number]=PkQpfqep [facility] managing chronic illnessHealth [facility] 199036=FhjBzegnr [facility] 153984=FfonftsuqjJkudha [facility] 0-N/AHealth [facility] 0=N/AHealth [facility] COMPREHENSIVE METABOLIC PANEL WITH GFRon 12-16-2016 Alanine aminotransferase (ALT)11 U/LNormal5-59Pathology Laboratories IncAlbumin 3.9 g/dLNormal3.2-5.3Pathology Laboratories IncALK PHOS75 IU/UJpzwyf72-139 Path[facility] Laboratories IncAnion gap20 mmol/LNormalPathology Laboratories Inc AST-SGOT11 IU/HTkrfsp97-26Jalgekaav Laboratories IncBilirubin (direct)0.4 mg/dL Normal0.2-1.3Pathology Laboratories IncCalcium9.3 mg/dLNormal8.7-10.8[facility] SlxIaraacjg847 mmol/LAlvebm68-236Lyvkvwbcg Laboratories LkiED831 mmol/LHpoktt50-33Iacffjxpi Laboratories IncCreatinine0.5 mg/dLNormal0.5-1.3 [facility] InceGFR (black)154 [...] conc4.7 mmol/LNormal3.5-5.4Pathology Laboratories IncProtein6.7 g/dLNormal 5.8-8.0[facility] JjfPcazfg447 mmol/OEnmqiy018-929Riguzdgyg Laboratories IncUrea vygltajh85 mg/vFKfsjrm49-08Qaajgrtbz Laboratories IncLIPID PANEL (INCLUDES CALCULATED LDL)on 92-01-7448Eeqiavzpspx483 mg/dLHigh<200 [facility] Laboratories IncCholesterol to HDL Ratio6.2 {ratio}High<5Path[facility] IncHDL-CHOL38 mg/jxBgp47-45Tiitofxou Laboratories IncComment on above:Result Comment: HDL <40 mg/dL IS A RISK FACTOR FOR CORONARY HEART DISEASE. HDL >60 mg/dL IS ANEGATIVE RISK FACTOR FOR CORONARY HEART DISEASE.LDL to HDL Ratio3.7High<3.5Pathology Laboratories IncLDL-CHOL, WLDDRTATZX532 mg/dLHigh<130 Path[facility] Laboratories IncComment on above:Result Comment: LDL CHOLESTEROL REFERENCE RANGE FOR 0-19 YEARS: DESIRABLE <110 mg/dL, XQQERFTMAD281-240, HIGH RISK >130 LDL CHOLESTEROL REFERENCE RANGE FOR ADULTS: DESIRABLE <100 mg/dL, BORD DAILY 130-159, HIGH RISK >160REFERENCE RANGES REVISED 09/09/15 ACCORDING TO NCEP GUIDELINESZwpibkgatvjp509 mg/dLHigh<150Pathology Laboratories IncVLDL- CHOL, HQLIAKIMFG15 mg/dLHigh<30Pathology Laboratories IncCBC W/AUTO DIFFon 12-15-2016% OPCDXBJYNYV10.3 %NormalPathology Laboratories IncABS BASOPHILS0.1 K/ulNormal0.0-0.1Pathology Laboratories IncABS NEUTROPHILS6.1 K/ulNormal1.3-9.1 [facility] IncBasophils/100 WBC Auto (Bld)0.8 %NormalPathology Laboratories IncComment on above:Result Comment: MANUAL DIFFERENTIAL PERFORMED Eosinophils0.5 10*3/uLHigh0.1-0.4Pathology Laboratories IncEosinophils/100 leukocytes5.2 %NormalPathology Laboratories IncErythrocyte distribution width Auto Ratio (RBC)16.9 %High10.8-14.8Pathology Laboratories IncErythrocytes (RBC) 5.29 10*6/uLNormal4.00-5.50[facility] Laboratories IncHematocrit (HCT)47.1 % Ermymg39.0-48.0Path[facility] IncHemoglobin mass conc (Bld)15.2 g/dL Omgiqg81.0-16.0[facility] Laboratories IncLymphocytes1.9 10*3/uLNormal0.8-5.2 [facility] IncLymphocytes/100 brbxrqqlsu47.6 %NormalPathology Laboratories IwdETV57.7 puBrhuxi66.0-34.0[facility] IncMCHC mass conc (RBC)32.3 g/pXRxcaip69.0-36.0[facility] AkyTWM59.0 fLNormal 80.-100.[facility] Laboratories IncMonocytes0.5 10*3/uLNormal0.1-0.9[facility] IncMonocytes/100 leukocytes5.7 %NormalPathology Laboratories Inc Jgeuwmxhm570 10*3/uZSugufo465.-450.[facility]ology Laboratories IncWBC (Leukocytes)9.0 10*3/uLNormal3.7-10.8[facility] IncHEPATITIS C ABon 12-15-2016 HEPATITIS C ABNegativeNormalNEGATIVEPathology Laboratories IncComment on above: Result Comment: [facility] [address] [place], [place] [address]Laboratory Director: Dwight Menezes M.D.CLIA No. [id number] CAP Accreditation No. [id number] WITH T4 REFLEXon 26-59-2054Emkxpro stimulating hormone (TSH)1.180 uIU/mLNormal0.40-4.40Pathology Laboratories IncCardiacon 73-48-9012Nbfwtoihhgn872 mg/dLInvalid Interpretation Code<200[facility] HDL Vvklowjisxp45.0 mg/zH50-99CrxywzBerkshire Medical Center 3111Nznintvqxhud082.0 mg/dL<150[facility] Hematologyon 49-35-8176Raqwqkzoy #/vol (Bld)0.8 %[facility] Basophils Auto #/vol (Bld)0.8 %Invalid Interpretation CodeBerkshire Medical Center Basophils/100 WBC (Bld)0.1 K/uL0.0-0.1[facility] Basophils/100 WBC Auto (Bld)0.1 K/uLInvalid Interpretation Code0.0-0.1[facility] Eosinophils/100 leukocytes5.2 %Invalid Interpretation CodeBerkshire Medical Center Eosinophils/100 WBC (Bld)5.2 %[facility] Erythrocyte distribution width Auto Ratio (RBC)16.9 % Invalid Interpretation Code10.8-14.8[facility] Erythrocytes (RBC)5.290 10*6/uLInvalid Interpretation Code4.00-5.50[facility] Hematocrit (HCT)47.10 %Invalid Interpretation Code 36.0-48.0[facility] Hematocrit Volume Fraction (Bld)47.10 %36.0-48.0[facility] Hemoglobin A1c/Hemoglobin.total mass fraction (Bld)0.5 10*3/uL0.1-0.4[facility] Hemoglobin A1c/Hemoglobin.total mass fraction (Bld)1.9 10*3/uL0.8-5.2[facility] Hemoglobin A1c/Hemoglobin.total mass fraction (Bld)0.5 10*3/uL0.1-0.9[facility] Hemoglobin A1c/Hemoglobin.total mass fraction (Bld)6.1 10*3/uL1.3-9.1[facility] Hemoglobin S pifdnlvo58.2Invalid Interpretation Code 12.0-16.0[facility] Lipoprotein a mass conc0.5 10*3/uLInvalid Interpretation Code0.1-0.4[facility] Lipoprotein a mass conc1.9 10*3/uLInvalid Interpretation Code0.8-5.2[facility] Lipoprotein a mass conc0.5 10*3/uLInvalid Interpretation Code0.1-0.9[facility] Lipoprotein a mass conc6.1 10*3/uLInvalid Interpretation Code1.3-9.1[facility] Lymphocytes/100 xvnhfcwath68.6 %Invalid Interpretation CodeHealth [facility] Lymphocytes/100 WBC (Bld)20.6 %[facility] MCH28.7 pgInvalid Interpretation Code27.0-34.0[facility] MCH Entitic mass (RBC)28.7 pg27.0-34.0[facility] MCHC mass conc (RBC)32.3 g/dLInvalid Interpretation Code31.0-36.0[facility] MCV89.0 fLInvalid Interpretation Code80.-100.[facility] MCV Entitic volume (RBC)89.0 fL80.-100.[facility] Monocytes/100 leukocytes5.7 %Invalid Interpretation CodeBerkshire Medical Center [employer] Monocytes/100 WBC (Bld)5.7 %[facility] Neutrophils/100 luoanvpfft23.3 %Invalid Interpretation CodeBerkshire Medical Center Neutrophils/100 WBC (Bld)67.3 %[facility] RBC #/vol (Bld)5.290 10*6/uL4.00-5.50[facility] WBC (Leukocytes)9.0 10*3/uLInvalid Interpretation Code 3.7-10.8[facility] Imm/Pathon 02-32-8012Apxrzbbyk C antibody presence NegativeNEGATIVEBerkshire Medical Center Metabolic Panelon 67-12-8662Brpejdqqnj A1c/Hemoglobin.total mass fraction (Bld)6.70 %Invalid Interpretation Code< 7 [facility] [employer] Glucose mass lkwh622.0 mg/dLInvalid Interpretation Code [facility] Hemoglobin A1c/Hemoglobin.total mass fraction (Bld)6.70 %< 7[facility] Alanine aminotransferase (ALT)11.0 U/L5-59[facility] Albumin3.90 g/dL3.2-5.3[facility] Alkaline phosphatase (ALP)75.0 U/R33-672Cvsjjn [facility] Anion gap20 mmol/LInvalid Interpretation CodeHealth [facility] Anion gap molar conc20 mmol/LHealth [facility] Aspartate aminotransferase (AST)11.0 U/Y36-04Yawxbr [facility] Calcium9.30 mg/dL8.7-10.8[facility] 9743Wxapgbco395 mmol/Z11-319Qjovxc [facility] CO222 mmol/LInvalid Interpretation Tfnr41-47Mhbcwz [facility] 2445Sulhfqoxim6.50 mg/dL0.5-1.3[facility] eGFR (non-black)127 mL/min/{1.73_m2}Invalid Interpretation Code>60[facility] eGFR (non-black)154 mL/min/{1.73_m2}Invalid Interpretation Code>60[facility] Glucose mass conc99 mg/eS50-150Iohcwu [facility] Potassium molar conc4.70 mmol/L3.5-5.4[facility] Protein6.7 g/dL5.8-8.0[facility] Sodium142 mmol/Y360-354Takduu [facility] Urea lqepjarx63.0 mg/dC34-00Xosqmo [facility] Glucose mass hfch775.0 mg/dLHealth [facility] Otheron 74-18-1151NOOIsnqeeh Interpretation Code[facility] WNLHealth [facility] Work Phone: [phone]=CgYidggjr Interpretation [facility] Risk Level 3=7-9Invalid Interpretation [facility] Work Phone: [phone]=CqoVyodook Interpretation [facility] 0Invalid Interpretation [facility] 374340=JdlEdgbagu Interpretation [facility] 0-N/AInvalid Interpretation [facility] 8Invalid Interpretation [facility] 0=N/AInvalid Interpretation [facility] 130686=TeyawaltrrExowgss Interpretation [facility] Bilirubin Ql (U)0.40.2-1.3[facility] Cholesterol crystals Infrared spectroscopy Ql (Stone) 236 mg/dL<200[facility] Cholesterol to HDL Ratio6.2 {ratio}<5[facility] Erythrocyte distribution width Ratio (RBC)16.9 % 10.8-14.8[facility] Hemoglobin S Ql (Bld)15.212.0-16.0[facility] LDL to HDL Ratio3.7Invalid Interpretation Code<3.5 [facility] Lipoprotein.beta/Lipoprotein.alpha mass ratio3.7<3.5 [facility] MCHC mass conc (RBC)32.3 g/dL31.0-36.0[facility] 676-2466CqfC-AJ SerPl-vYdk213.0 mg/dL<130[facility] 163-0914HczN-EZ SerPl-mCnc58.0 mg/dL<30[facility] WBC LM Ql (Sput)9.03.7-10.8[facility] 124150.-450.[facility] 6.7Invalid Interpretation Code5.8-8.0[facility] [id number]>60[facility] 127>60[facility] 2824-22Jfukir [facility] Work Phone: [phone] [facility] Work Phone: [phone]=EjaaorikgkNbbfxf [facility] 5=WuCmpnls [facility] 8=RmnClqolx [facility] 4-I/AHealth [facility] Work Phone: [phone]=KkeGuhhrf [facility] Work Phone: [phone]=K/AHealth [facility] Risk Level 3=7-9[facility] 8[facility] Thyroidon 79-67-0379Usfqlvl stimulating hormone (TSH) 1.180 uIU/mL0.40-4.40[facility] Cardiacon 42-69-8753Sphaahcjzjd418 mg/dLInvalid Interpretation Code<200[facility] HDL Dxkkacxcjdf21.0 mg/xW02-36Wgmbfp [facility] 8159Fzgeourzdewx408.0 mg/dL<150[facility] Hematologyon 80-35-0213Jyfzslrpl #/vol (Bld)1.1 %0.-1. [facility] Basophils Auto #/vol (Bld)1.1 %Invalid Interpretation Code0.-1.[facility] Basophils/100 WBC (Bld)0.1 K/uL0.0-0.1[facility] Basophils/100 WBC Auto (Bld)0.1 K/uLInvalid Interpretation Code0.0-0.1H[facility] Eosinophils/100 leukocytes3.7 %Invalid Interpretation Code1.-4.[facility] Eosinophils/100 WBC (Bld)3.7 %1.-4.[facility] Erythrocyte distribution width Auto Ratio (RBC)15.3 % Invalid Interpretation Code10.8-14.8H[facility] [employer] Erythrocytes (RBC)5.050 10*6/uLInvalid Interpretation Code4.00-5.50[facility] Hematocrit (HCT)47.70 %Invalid Interpretation Code 36.0-48.0[facility] Hematocrit Volume Fraction (Bld)47.70 %36.0-48.0[facility] Hemoglobin A1c/Hemoglobin.total mass fraction (Bld)0.4 10*3/uL0.1-0.4HWest[facility] Hemoglobin A1c/Hemoglobin.total mass fraction (Bld)2.4 10*3/uL0.8-5.2[facility] Hemoglobin A1c/Hemoglobin.total mass fraction (Bld)0.4 10*3/uL0.1-0.9[facility] Hemoglobin A1c/Hemoglobin.total mass fraction (Bld)6.6 10*3/uL1.3-9.1[facility] Hemoglobin S iftdtgjg07.1Invalid Interpretation Code 12.0-16.0[facility] Lipoprotein a mass conc0.4 10*3/uLInvalid Interpretation Code0.1-0.4[facility] Lipoprotein a mass conc2.4 10*3/uLInvalid Interpretation Code0.8-5.2[facility] Lipoprotein a mass conc0.4 10*3/uLInvalid Interpretation Code0.1-0.9[facility] Lipoprotein a mass conc6.6 10*3/uLInvalid Interpretation Code1.3-9.1[facility] Lymphocytes/100 gakgoihnou12.4 %Invalid Interpretation Lbcf83-00Qmcqaz [facility] Lymphocytes/100 WBC (Bld)24.4 %16-48[facility] MCH29.9 pgInvalid Interpretation Code27.0-34.0[facility] MCH Entitic mass (RBC)29.9 pg27.0-34.0[facility] MCHC mass conc (RBC)31.7 g/dLInvalid Interpretation Code31.0-36.0[facility] MCV94.4 fLInvalid Interpretation Code80.-100.[facility] MCV Entitic volume (RBC)94.4 fL80.-100.[facility] Monocytes/100 leukocytes3.8 %Invalid Interpretation Code1.-8.[facility] Monocytes/100 WBC (Bld)3.8 %1.-8.[facility] Neutrophils/100 whfphprmyf27.0 %Invalid Interpretation Sghj17-12Fpqwdz [facility] Neutrophils/100 WBC (Bld)67.0 %45-75[facility] RBC #/vol (Bld)5.050 10*6/uL4.00-5.50[facility] WBC (Leukocytes)9.9 10*3/uLInvalid Interpretation Code 3.7[facility]10.8[facility] Met[facility] Panelon 03-52-7390Wynczxj aminotransferase (ALT)17.0 U/L5-59[facility] Albumin4.30 g/dL3.2-5.3[facility] Alkaline phosphatase (ALP)92.0 U/S06-262Aiznhi [facility] Anion gap11 mmol/LInvalid Interpretation CodeHealth [facility] Anion gap molar conc11 mmol/L[facility] Aspartate aminotransferase (AST)16.0 U/N23-78Dvqnes [facility] Calcium9.50 mg/dL8.7-10.8[facility] 0963Qflvlzjc806 mmol/G01-693Kvmriq [facility] CO227 mmol/LInvalid Interpretation Wimk57-92Xxegca [facility] 2242Ywhdrrutgd5.50 mg/dL0.5-1.3[facility] eGFR (non-black)155 mL/min/{1.73_m2}Invalid Interpretation Code>60[facility] eGFR (non-black)128 mL/min/{1.73_m2}Invalid Interpretation Code>60[facility] Glucose mass conc94 mg/vS54-871Gtibuz [facility] Potassium molar conc4.70 mmol/L3.5-5.4[facility] Protein7.0 g/dL5.8-8.0[facility] Sodium136 mmol/L319-947Dxelkd [facility] Urea eaycecey89.0 mg/gT78-31Lpbnnh [facility] Glucose mass conc78.0 mg/dLHealth [facility] Glucose mass conc78.0 mg/dLInvalid Interpretation Code [facility] Otheron 15-92-5324Gkovcwnyk Ql (U)0.30.2-1.3[facility] Cholesterol crystals Infrared spectroscopy Ql (Stone) 224 mg/dL<200[facility] Cholesterol to HDL Ratio6.1 {ratio}<5[facility] Erythrocyte distribution width Ratio (RBC)15.3 % 10.8-14.8[facility] Hemoglobin S Ql (Bld)15.112.0-16.0[facility] LDL to HDL Ratio3.6Invalid Interpretation Code<3.5 [facility] Lipoprotein.beta/Lipoprotein.alpha mass ratio3.6<3.5 [facility] MCHC mass conc (RBC)31.7 g/dL31.0-36.0[facility] p185-9745FgpV-HN SerPl-tDcu962.0 mg/dL<130[facility] 344-0612RuxZ-SI SerPl-mCnc53.0 mg/dL<30[facility] WBC LM Ql (Sput)9.93.7-10.8[facility] 203150.-450.[facility] 7.0Invalid Interpretation Code5.8-8.0[facility] 128>60[facility] 155>60[facility] [id number] [facility] Thyroidon 77-02-9878Wzyowwr stimulating hormone (TSH) 0.1650 uIU/mL0.40-4.40[facility] Thyroxine (T4) pqqa7078.0 ng/dL4.5-12.5[facility] Hematologyon 14-93-4941cPTCHRT except trace of blood, small leukocytesInvalid Interpretation CodeHealth [facility] [employer] Metabolic Panelon 07-41-0137Oykqnptenu A1c/Hemoglobin.total mass fraction (Bld)9.30 %< 7[facility] Glucose mass fhtw867.0 mg/dLHealth [facility] Hemoglobin A1c/Hemoglobin.total mass fraction (Bld)9.30 %Invalid Interpretation Code< 7[facility] Glucose mass qcdq026.0 mg/dLInvalid Interpretation Code [facility] otheron [id number] [facility] WNLHealth [facility] 50Invalid Interpretation CodeHealth [facility] Urinalysis specialist review Interp Emmett (Unsp spec)WNL except trace of blood, small leukocytesHealth [facility] albumin mass conc (U)50.0 mg/dLHealth [facility] NegativeHealth [facility] WNLInvalid Interpretation CodeHealth [facility] Urinalysis specialist review Interp Emmett (Unsp spec)WNL except trace of blood, small leukocytesInvalid Interpretation CodeHealth [facility] albumin Ur-mCnc50.0 mg/dLInvalid Interpretation Code [facility] NegativeInvalid Interpretation CodeHealth [facility] Vital Signs Date TimeVital SignValuePerforming ShrggujezXepfmrgh23-56-8332 15:06-0400Body udtlfzoihag52.11 [degF]Nat Reynolds MD Work Phone: [facility] Cncwfn21-10-8914 15:06-0400Diastolic blood nizguvhm28 mm[Hg]Nat Reynolds MD Work Phone: [facility] Rccajz77-78-5310 15:06-0400Heart rate 77 /minNat Reynolds MD Work Phone: [facility] Lketck04-61-9583 15:06-0400 Respiratory rate20 /minNat Reynolds MD Work Phone: [facility] Ksyypb11-91-2637 15:06-9993WqK7% (BldA) [Mass fraction]96 %Nat Reynolds MD Work Phone: [facility]10-03-2025 15:06-0400Systolic blood libfvikc24 mm[Hg]Nat Reynolds MD Work Phone: [facility]10-01-2025 20:53-0400Body .9 cmNat Reynolds MD Work Phone: [facility]10-01-2025 20:53-0400Body mass index (BMI) [Ratio]21.97 kg/s2HkzayucNat Reynolds MD Work Phone: [facility]10-01-2025 20:53-0400Body .75 kgNat Reynolds MD Work Phone: [facility]08-21-2025 17:00-0400Diastolic blood vfubufkn57 mm[Hg]Osmar Rodriguez MD Work Phone: [facility]08-21-2025 17:00-0400Systolic blood fwgvhgja532 mm[Hg]Osmar Rodriguez MD Work Phone: [facility]08-21-2025 16:45-0400Heart rate73 /Emma Rodriguez MD Work Phone: [facility]08-21-2025 16:45-9793LvK4% (BldA) [Mass fraction]90 %Osmar Rodriguez MD Work Phone: [facility]08-21-2025 14:15-0400 Respiratory rate18 /Emma Rodriguez MD Work Phone: [facility]08-21-2025 12:11-0400Body ehdhoosgdtm84.5 [degF]Osmar Rodriguez MD Work Phone: [facility]05-19-2025 10:29-0400 Respiratory rate15 /Emma Rodriguez MD Work Phone: [facility]05-19-2025 07:27-4713FeO1% (BldA) [Mass fraction]95 %Osmar Rodriguez MD Work Phone: [facility]05-19-2025 06:47-0400Body towphdofwni19 [degF]Osmar Rodriguez MD Work Phone: [facility]05-19-2025 06:47-0400Diastolic blood evbduduq28 mm[Hg]Osmar Rodriguez MD Work Phone: [facility]05-19-2025 06:47-0400Heart rate73 /Emma Rodriguez MD Work Phone: [facility]05-19-2025 06:47-0400Systolic blood zfgfgujq605 mm[Hg]Osmar Rodriguez MD Work Phone: [facility]05-19-2025 01:26-0400Body mass index (BMI) [Ratio]23.47 kg/d4XpwnheOsmar Rodriguez MD Work Phone: [facility]05-19-2025 01:26-0400Body oxwrvk59.34 kgOsmar Rodriguez MD Work Phone: [facility]05-15-2025 07:22-0400Body muvjke334.9 Nora Rodriguez MD Work Phone: [facility]05-12-2025 18:30-0400Body mnlucpqaigm28.5 [degF]Osmar Rodriguez MD Work Phone: [facility]05-12-2025 18:30-0400Diastolic blood yvlexkly12 mm[Hg]Osmar Rodriguez MD Work Phone: [facility]05-12-2025 18:30-0400Heart rate78 /Emma Rodriguez MD Work Phone: [facility]05-12-2025 18:30-0400 Respiratory rate18 /Emma Rodriguez MD Work Phone: [facility]05-12-2025 18:30-1968MhX5% (BldA) [Mass fraction]95 %Osmar Rodriguez MD Work Phone: [facility]05-12-2025 18:30-0400Systolic blood owupsctp002 mm[Hg]Osmar Rodriguez MD Work Phone: [facility]05-12-2025 05:44-0400Body mass index (BMI) [Ratio]24.67 kg/f8CuxawvOsmar Rodriguez MD Work Phone: [facility]05-12-2025 05:44-0400Body ishhmp35.19 kgOsmar Rodriguez MD Work Phone: [facility]05-09-2025 06:44-0400Body vjwreb671.9 cmSmaria elena Rodriguez MD Work Phone: [facility]10-24-2024 16:00-0400Inhaled oxygen flow rate2 L/KarenO Carlo Grimaldo Work Phone: [facility]10-24-2024 16:00-0400 SaO2% (BldA) [Mass fraction]95 %DO Carlo Grimaldo Work Phone: [facility]10-24-2024 13:59-0400 Diastolic blood mm[Hg]DO Carlo Grimaldo Work Phone: [facility]10-24-2024 13:59-0400 Heart rate70 /minDO Carlo Grimaldo Work Phone: [facility]10-24-2024 13:59-0400 Respiratory rate18 /minDO Carlo Grimaldo Work Phone: [facility]10-24-2024 13:59-0400 Systolic blood uoapgjqb272 mm[Hg]DO Carlo Grimaldo Work Phone: [facility]10-24-2024 07:58-0400 Body nhvvqajoped39.8 [degF]DO Carlo Grimaldo Work Phone: [facility]10-24-2024 05:30-0400 Body wukdpj44 kgDO Carlo Grimaldo Work Phone: 1(120)212-24[facility]10-23-2024 15:20-0400 Body hdsmyg436.18 cmDO Carlo Grimaldo Work Phone: 1(012)226-53[facility]10-20-2024 21:30-0400 Diastolic blood mm[Hg]DO Carlo Grimaldo Work Phone: 1(681)803-70[facility]10-20-2024 21:30-0400 Heart rate67 /minDO Carlo Grimaldo Work Phone: 1(223)523-24[facility]10-20-2024 21:30-0400 Inhaled oxygen flow rate4 L/minDO Carlo Grimaldo Work Phone: 1([phone] [place], [place] 7548110-20-2024 21:30-0400 Respiratory rate20 /minDO Carlo Grimaldo Work Phone: [phone]10-20-2024 21:30-0400 SaO2% (BldA) [Mass fraction]94 %DO Carlo Grimaldo Work Phone: [facility]10-20-2024 21:30-0400 Systolic blood ctzwepjv795 mm[Hg]DO Carlo Grimaldo Work Phone: [facility]10-20-2024 16:43-0400 Body yjwbow551.94 cmDO Carlo Grimaldo Work Phone: [facility]10-20-2024 16:43-0400 Body .4 kgDO Carlo Grimaldo Work Phone: [facility]10-20-2024 16:41-0400 Body blzyjkeparz49.2 [degF]DO Carlo Grimaldo Work Phone: [facility]04-30-2023 12:10-0400 Body .9 Nora Rodriguez MD Work Phone: [facility]04-30-2023 12:10-0400Body mass index (BMI) [Ratio]30.23 kg/e3XfduqbOsmar Rodriguez MD Work Phone: [facility]04-30-2023 12:10-0400Body aobcfqitxrm97.9 [degF]Osmar Rodriguez MD Work Phone: [facility]04-30-2023 12:10-0400Body cukwjk21.58 kgOsmar Rodriguez MD Work Phone: [facility]04-30-2023 12:10-0400Diastolic blood njwlhaai60 mm[Hg]Osmar Rodriguez MD Work Phone: [facility]04-30-2023 12:10-0400Heart rate60 /Emma Rodriguez MD Work Phone: [facility]04-30-2023 12:10-0400 Respiratory rate20 /Emma Rodriguez MD Work Phone: [facility]04-30-2023 12:10-2018SbX0% (BldA) [Mass fraction]91 %Osmar Rodriguez MD Work Phone: [facility]04-30-2023 12:10-0400Systolic blood qogsmcsm251 mm[Hg]Osmar Rodriguez MD Work Phone: [facility]04-22-2023 10:16-0400Body ugzxjqgmzqu18.9 [degF]Osmar Rodriguez MD Work Phone: [facility]04-22-2023 10:16-0400Diastolic blood eixhhwsq02 mm[Hg]Osmar Rodriguez MD Work Phone: [facility]04-22-2023 10:16-0400Heart rate79 /Emma Rodriguez MD Work Phone: [facility]04-22-2023 10:16-0400 Respiratory rate20 /Emma Rodriguez MD Work Phone: [facility]04-22-2023 10:16-5331IaA0% (BldA) [Mass fraction]91 %Osmar Rodriguez MD Work Phone: [facility]04-22-2023 10:16-0400Systolic blood hndbtoyp204 mm[Hg]Osmar Rodriguez MD Work Phone: [facility]01-27-2023 13:55-0500Body rducwn949.9 cmCorrine Chery DOCUMENT CLERK-DISTRIBUTED GENERATION PROJECT MANAGER Work Phone: [phone] [place], [place] 7262901-27-2023 13:55-0500Body mass index (BMI) [Ratio]25.51 kg/t1AbziqjdkCorrine De La Cruzor DOCUMENT CLERK-DISTRIBUTED GENERATION PROJECT MANAGER Work Phone: [phone] [place], [place] 7262901-27-2023 13:55-0500Body lpovdz21.24 kgCorrine De La Cruzor DOCUMENT CLERK-DISTRIBUTED GENERATION PROJECT MANAGER Work Phone: [phone] [place], [place] 7262901-27-2023 13:55-0500 Diastolic blood wnigmkgy76 mm[Hg]Corrine De La Cruzmeeta DOCUMENT CLERK-DISTRIBUTED GENERATION PROJECT MANAGER Work Phone: [phone] [place], [place] 7262901-27-2023 13:55-0500Heart rate70 /minCorrine Chery DOCUMENT CLERK-DISTRIBUTED GENERATION PROJECT MANAGER Work Phone: [phone] [place], [place] 7262901-27-2023 13:55-0500Systolic blood pgknfyet393 mm[Hg]Corrine De La Cruzmeeta DOCUMENT CLERK-DISTRIBUTED GENERATION PROJECT MANAGER Work Phone: [phone] [place], [place] 7262904-20-2022 15:30-0400 Diastolic blood hvsubsnm40 mm[Hg]Pedrito Pickett MD Work Phone: [facility]04-20-2022 15:30-0400Heart rate69 /Derick Pickett MD Work Phone: [facility]04-20-2022 15:30-0400 Respiratory rate24 /minSmicah Pickett MD Work Phone: [phone] [place], [place] 2462804-20-2022 15:30-4619XeW5% (BldA) [Mass fraction]93 %Pedrito Pickett MD Work Phone: 1(472)[address] [place], [place] 2462804-20-2022 15:30-0400Systolic blood iydiixjr311 mm[Hg]Pedrito Pickett MD Work Phone: 1(320)[address] [place], [place] 2462804-20-2022 12:46-0400Body qgjzxo549.9 cmSmicah Pickett MD Work Phone: [phone])[address] [place], [place] 2462804-20-2022 12:46-0400Body mass index (BMI) [Ratio]22.67 kg/g4GtkikrPedrito Pickett MD Work Phone: 1(350)[address] [place], [place] 2462804-20-2022 12:46-0400Body xsinzjmvarf02.2 [degF]Pedrito Pickett MD Work Phone: 1(705)[address] [place], [place] 2462804-20-2022 12:46-0400Body lkavbe21.43 kgPedrito Pickett MD Work Phone: [phone] [place], [place] 2462812-19-2021 13:47-5289ZjL3% (BldA) [Mass fraction]94 %Osmar Rodriguez MD Work Phone: [facility] 12:02-0500Diastolic blood llwufprz42 mm[Hg]Osmar Rodriguez MD Work Phone: [facility] HospitalKvjscz67-26-2583 12:02-0500Systolic blood vfqmmjaz195 mm[Hg]Osmar Rodriguez MD Work Phone: [facility] HospitalQhxuhn00-17-5474 09:16-0500Heart rate70 /min Osmar Rodriguez MD Work Phone: [facility] HospitalVdbjrb60-98-9478 08:33-0500Body mass index (BMI) [Ratio]30.55 kg/n2Mylekpdiego Rodriguez MD Work Phone: [facility] Evjgaw03-49-9974 08:33-0500Body quknzs84.35 kg Osmar Rodriguez MD Work Phone: [facility] HospitalExheyi33-60-0940 06:01-0500Respiratory rate18 /minSmaria elena Rodriguez MD Work Phone: [facility] Fetowf58-42-5244 13:56-0500Body ywtxutuboad28.1 [degF]Osmar Rodriguez MD Work Phone: [facility] Xnusat43-35-2664 11:51-0500Diastolic blood kjeyuftd12 mm[Hg][facility] Phhlwm72-62-7930 11:51-0500Heart rate56 /[facility] [employer] 02-09-2021 11:51-0500Respiratory rate18 /min[facility] Ibadlf91-55-2917 11:51-0500 SaO2% (BldA) [Mass fraction]96 %[facility] Ydvrpc68-48-7342 11:51-0500Systolic blood idgjeyxb548 mm[Hg][facility] Cagzhc00-56-6028 11:09-0500Body rqexux193.9 cmAs[facility] Kcjwlo83-47-9418 11:09-0500Body mass index (BMI) [Ratio]30.23 kg/x9[facility]oge [employer] 02-09-2021 11:09-0500Body igivopruxih62.1 [degF][facility] Ccdxeb02-49-9489 11:09-0500Body .58 kgAs[facility]ab[facility] Dcbqgq02-75-4462 15:19-0400Diastolic blood zygfgjfk37 mm[Hg]Albert Andes DO Work Phone: [facility] Work Phone: 1(141) 205-102110-14-2021 15:19-0400Systolic blood fbpcpziy377 mm[Hg] Albert Andes DO Work Phone: [facility] Work Phone: 1(859) 528-899710-14-2021 15:15-4403KgX7% (BldA) [Mass fraction]96 % Albert Andes DO Work Phone: [employer] Work Phone: 1(633) 180-520110-14-2021 12:02-0400Body ryebqm291.9 cmJustin Andes DO Work Phone: [facility] [employer] Work Phone: 1(996) 581-987710-14-2021 12:02-0400Body mass index (BMI) [Ratio] 30.23 kg/p0Khfybu Andes DO Work Phone: [facility] [employer] Work Phone: [phone]766 12:02-0400Body faidyqjyubg16.7 [degF]Albert Andes DO Work Phone: [facility] [employer] Work Phone: [phone]015 12:02-0400Body egpglw03.58 kgJustin Andes DO Work Phone: [facility] [employer] Work Phone: 1(708) 114-981410-14-2021 12:02-0400Heart rate70 /minJustin Andes DO Work Phone: [facility] [employer] Work Phone: 1(165) 258-194510-14-2021 12:02-0400Respiratory rate18 /minJustin Andes DO Work Phone: [facility] [employer] Work Phone: 1(732) 355-120509-05-2021 19:00-0400Diastolic blood noblzrcl69 mm[Hg] Mukeshpaige Marley MD Work Phone: [facility] [employer] Work Phone: 1(858) 760-927109-05-2021 19:00-0400Systolic blood daulhjbw864 mm[Hg] Mukeshpaige Marley MD Work Phone: [facility] [employer] Work Phone: 1(419) 226-300809-05-2021 17:30-4522DpW5% (BldA) [Mass fraction]99 % Mukeshpaige Marley MD Work Phone: [facility] [employer] Work Phone: 1(615) 641-370409-05-2021 15:50-0400Body mass index (BMI) [Ratio] 34.01 kg/m2Mukesh Marley MD Work Phone: [facility] [employer] Work Phone: 1(559) 449-167009-05-2021 15:50-0400Body .6 [degF]Mukesh Marley MD Work Phone: [facility] [employer] Work Phone: 1(376) 188-181509-05-2021 15:50-0400Body pbilxu15.65 kgMukesh Marley MD Work Phone: [facility] [employer] Work Phone: 1(341) 140-388909-05-2021 15:50-0400Heart rate77 /Jimmie Marley MD Work Phone: [facility] [employer] Work Phone: 1(896) 849-742709-05-2021 15:50-0400Respiratory rate16 /Jimmie Marley MD Work Phone: [facility] [employer] Work Phone: 1(371) 363-353501-12-2021 09:55-0500BMI (Body Mass Index)33.7 kg/m2 [facility] Work Phone: 1(877) 728-209601-12-2021 09:55-0500Body Fsrxhioatro33.7 [degF][facility] Work Phone: 1(931) 426-180201-12-2021 09:55-0500Body cenfnt00.61 kgAijuanito [facility] Work Phone: 1(427) 158-876301-12-2021 09:55-0500BP Hcqvrrbcd07 mm[Hg][facility] Work Phone: 1(594) 121-238901-12-2021 09:55-0500BP Lorgphvz029 mm[Hg][facility] Work Phone: 1(616) 774-578201-12-2021 09:55-0500BSA (Body Surface Area)1.78 m2 [facility] Work Phone: 1(121) 903-388001-12-2021 09:55-5890Rpvfko098.[address] [facility] Work Phone: 1(230) 578-703401-12-2021 09:55-0500Pulse (Heart Rate)70 /minAijuanito [facility] Work Phone: 1(872) 604-413801-12-2021 09:55-0500Pulse Ropqgtxs15 %[facility] Work Phone: 1(461) 114-800101-12-2021 09:55-0500Respiratory Rate18 /[facility] Work Phone: 1(451) 877-369901-05-2021 14:02-0500BMI (Body Mass Index)30.23 kg/m2 [facility], TG86-10-5589 14:02-0500Body Mcxbigrpwun17.9 [degF][facility], QZ57-04-7274 14:02-0500Body fuimfx75.58 kgH[facility], FF27-85-5351 14:02-0500BP Azuaoxerj17 mm[Hg] [facility], FL21-43-4177 14:02-0500BP Dacabmrr235 mm[Hg] [facility], ST48-90-1140 14:02-0500Pulse (Heart Rate)63 /minH[facility] [place], BR79-47-3018 14:02-0500Pulse Koryhfqz19 % [facility], TU79-70-0380 14:02-0500Respiratory Rate18 /min [facility], BT41-26-2969 14:39-0500BP Mzobojltn14 mm[Hg] [facility], LW66-51-6176 14:39-0500BP Clahusil115 mm[Hg][facility], YO99-14-2024 14:39-0500Pulse (Heart Rate)65 /minC[facility], TZ55-38-2590 14:39-0500Pulse Esveripp52 %[facility], DY01-59-7044 14:39-0500Respiratory Rate16 /[facility], YN11-77-6429 13:59-0500BMI (Body Mass Index)30.23 kg/s4NeapiC[facility] Clinic [facility], JN40-09-5992 13:59-0500Body Ktfzspqpbxo52.01 [degF][facility], LH33-82-0047 13:59-0500Body qhkgoa47.58 kgC[facility]rington [facility], BL66-98-4992 07:30-0500Body Kwruoczqagf19.7 [degF][facility], AF04-27-0541 07:30-0500BP Plhgphtbc15 mm[Hg][facility], QC15-85-8759 07:30-0500BP Svsgcnsm297 mm[Hg][facility], VB64-68-5798 07:30-0500Pulse (Heart Rate)63 /min [facility], GN72-85-3045 07:30-0500Pulse Obbztnob754 % [facility], FN69-27-0441 07:30-0500Respiratory Rate16 /minTr[facility], ZL75-77-8504 18:02-0500BMI (Body Mass Index)31.78 kg/z2TucccinksxmsTr[facility] Health [facility], YT20-79-1460 18:02-0500Body .3 kgTr[facility], PX28-16-8274 18:02-0500Height 154.9 cmTr[facility], DU39-32-8302 10:52-0500BP Diastolic 91 mm[Hg]Josef [facility], RZ06-86-8872 10:52-0500BP Jwzootde320 mm[Hg] [facility], NE66-26-4364 10:52-0500Pulse (Heart Rate)59 /minK[facility], HD06-58-7835 08:49-0500Body Dwofnwotcqh71.8 [degF][facility], HB73-15-7524 08:49-0500Pulse Ffeknsbv47 %[facility], UB17-05-2278 08:49-0500Respiratory Rate16 /minK[facility], IH43-54-7927 08:07-0069Olxhbd259.9 [facility] [place] 03-18-2020 03:57-0500BMI (Body Mass Index)33.32 kg/m2[facility], DY67-78-8223 03:57-0500Body wxpyyu43 kgK[facility], XL74-95-0467 18:45-0500BP Gpdbngjyq61 mm[Hg][address], OR43-88-5784 18:45-0500BP Vezibchf781 mm[Hg][address], YP44-92-1997 18:45-0500Pulse (Heart Rate)62 /min[address], AN22-82-3688 18:45-0500Pulse Bdtqgmam46 %[address], KF95-11-2309 18:45-0500Respiratory Rate14 /min[address], AB55-97-1695 16:28-0500BMI (Body Mass Index)32.12 kg/m[address], QN60-13-7318 16:28-0500Body Johdahtybzi97.81 [degF][address], EV64-15-1702 16:28-0500Body yhgvsi02.[address], [place] 03-17-2020 16:28-5355Pqewtj109.[address], AR22-06-0072 13:36-0500Pulse (Heart Rate)67 /minEL[facility], OZ93-53-9325 13:36-0500Pulse Aqzolflg64 %Mukeshpaige MartinezK[facility]tering Health [facility], AV22-78-8489 13:36-0500Respiratory Rate20 /Robertan JuanKettering Health Behavior[facility], UL15-65-3687 12:15-0500BP Shrwpbddi02 mm[Hg]Mukesh JuanKet[facility], IQ01-48-3029 12:15-0500BP Bfjanhnt073 mm[Hg]Mukesh RameshMer[facility], PA85-81-0240 11:27-0500BMI (Body Mass Index)34.01 kg/m2Etan [facility] [place] 03-13-2020 11:27-0500Body Fimjuvxhvih71.91 [degF]Mukesh ChadnlerMercer County Community Hospital, WA24-27-7262 11:27-0500Body jjfaqk98.65 kgEtan JuanKettering Health [facility], [place] 02-12-2020 14:02-0500BMI (Body Mass Index)34.01 kg/e3Abbdlis [facility], [id number] 14:02-0500Body Mofhbbtrxbx82.4 [degF]Deion [facility], [id number] 14:02-0500Body hnslyt02.65 kgDeion [facility], [place] 02-12-2020 14:02-0500BP Walmiqtdi77 mm[Hg]Deion [facility], [place] 02-12-2020 14:02-0500BP Smhawiwu754 mm[Hg]Deion [facility] 02-12-2020 14:02-0500Pulse (Heart Rate)67 /minCentral [facility] Psych[facility] Centercarlos [facility], [place] 02-12-2020 14:02-0500Pulse Eqkdfbax31 %Deion [facility], [place] 02-12-2020 14:02-0500Respiratory Rate14 /minCentral New [facility] Psychiatric Centercarlos [facility] [place] 01-28-2020 09:30-0400BMI (Body Mass Index)33.9 kg/z0[facility] Work Phone: 1(622) [phone] 09:30-0400Body Grcscxcovyk86 [degF][facility] Work Phone: 1(720) [phone] 09:30-0400Body .02 kgAiSelect [facility] Work Phone: 1(162) [phone] 09:30-0400BP Kdxwfzyqn20 mm[Hg][facility] Work Phone: 1(297) [phone] 09:30-0400BP Gkntkbls925 mm[Hg][facility] Work Phone: [phone]) [phone] 09:30-0400BSA (Body Surface Area)1.78 m2 [facility] Work Phone: 1(645) 905-783210-29-2020 09:30-2823Eelkxg823.[address] [facility] Work Phone: 1(149) 513-265310-29-2020 09:30-0400Pulse (Heart Rate)68 /[facility] Work Phone: 1(581) 767-715810-29-2020 09:30-0400Pulse Gvpfzlpu19 %[facility] Work Phone: 1(628) 189-938710-29-2020 09:30-0400Respiratory Rate20 /[facility] Work Phone: 1(311) 531-250708-17-2020 08:49-0400BMI (Body Mass Index)34.4 kg/m2 [facility] Work Phone: 1(342) 715-342908-17-2020 08:49-0400Body Zzqbimefbuz19.9 [degF][facility] Work Phone: 1(246) 686-440208-17-2020 08:49-0400Body hcgnty44.56 kgAiSelect [facility] Work Phone: 1(963) [phone] 08:49-0400BP Xcmaeswfr99 mm[Hg][facility] Work Phone: 1(966) 346-348708-17-2020 08:49-0400BP Vjqljqup11 mm[Hg][facility] Work Phone: 1(168) 677-123208-17-2020 08:49-0400BSA (Body Surface Area)1.81 m2 [facility] Work Phone: 1(270)[phone] 08:49-9683Zpmmmq011.94 cmAKindred [facility] Work Phone: 1(337)[phone] 08:49-0400Pulse (Heart Rate)65 /[facility] Work Phone: [phone](805)[phone] 08:49-0400Pulse Fubxulco65 %[facility] Work Phone: 1([phone])[phone] 08:49-0400Respiratory Rate18 /[facility] Work Phone: 1(109) 205-783007-22-2020 14:02-0400BP Ihicqbrbo37 mm[Hg][facility], VO05-93-2216 14:02-0400BP Njrgwvii763 mm[Hg][facility], WO49-23-8830 14:02-0400Pulse (Heart Rate)66 /[facility], QT97-63-7285 14:02-0400Respiratory Rate20 /[facility], BX33-80-5465 13:40-0400Pulse Sgirrlhn530 %[facility], OW68-42-4391 13:34-0400BMI (Body Mass Index)34.01 kg/m2[facility], CH39-45-7260 13:34-0400Body Nvcoxqbgeke29.59 [degF][facility], FT13-92-3242 13:34-0400Body drdazw86.65 kgMukesh [facility], BI43-56-5979 13:34-9775Wkphlo403.9 cmElaura [facility], 10-21-2019 08:16-0400BMI (Body Mass Index)35 kg/q0IzutxSelect [facility] Work Phone: 1(542) 08:16-0400Body Uizxqejfvdq27.1 [degF][facility] Work Phone: 1(364) 08:16-0400Body iabpxw31.01 kgAiSelect [facility] Work Phone: [phone] 08:16-0400BP Jxtrhdyqt06 mm[Hg][facility] Work Phone: 1(267) 08:16-0400BP Bletbqit301 mm[Hg][facility] Work Phone: 1(272) 08:16-0400BSA (Body Surface Area)1.83 m2 [facility] Work Phone: 1(101) 08:16-8303Nvvhmi593.94 cmAKindred [facility] Work Phone: 1(996) 08:16-0400Pulse (Heart Rate)72 /[facility] Work Phone: 1(708) 08:16-0400Pulse Yravfzds26 %[facility] Work Phone: 1([phone]) 08:16-0400Respiratory Rate20 /[facility] Work Phone: 1(987) 02:32-0400BP Tiblziayj57 mm[Hg][facility], NR77-26-8252 02:32-0400BP Fadzdnah117 mm[Hg][facility], HM63-29-7141 02:32-0400Pulse (Heart Rate)96 /minSyed [facility], JW95-31-6141 02:32-0400Pulse Uhlizvlo88 %[facility], HJ29-96-4559 23:38-0400Respiratory Rate16 /minSyed [facility], OX09-57-7102 22:52-0400Body Jjqqfibuywf82.7 [degF]Wesly [facility], WC64-48-3906 11:11-0400Respiratory rateNOT REPORTEDIsland Hospital, RQ83-07-6003 10:57-0400Pulse Beeujzxw40 %Nia [facility], UQ90-64-9928 09:21-0400Body Fvksregpsea004.2 [degF]Nia [facility], NI09-17-0110 09:21-0400BP Nghdhzbrd53 mm[Hg]Nia [facility], JV00-47-9036 09:21-0400BP Ystwwqeg734 mm[Hg] Nia [facility], VR30-25-4610 09:21-0734Epfkcu745.6 cm Nia [facility], CI53-67-0129 09:21-0400Pulse (Heart Rate)85 /[facility], IZ88-16-6842 09:21-0400Respiratory Rate22 /[facility], MC70-18-0296 13:14-0400Body wimpgn761.94 cmAkamiki Angelita [facility] Work Phone: [facility] Work Phone: 1(517) 129-209106-25-2020 13:14-0400Body mass index (BMI) [Ratio]35.4 kg/q7Oyupl Angelita [employer] Work Phone: [facility] Work Phone: 1([phone] 360-352606-25-2020 13:14-0400Body surface area Derived from formula1.84 p3CckmiVahid Nagy CNP Work Phone: [phone] Work Phone: [phone] 13:14-0400Body ymqnbvfpdvf77.9 [degF]Vahid Nagy CNP Work Phone: [phone] Work Phone: [phone] 13:14-0400Body iqtgmn96.1 kgAijuanito Nagy CNP Work Phone: [phone] Work Phone: [phone] 13:14-0400Diastolic blood endgmpem34 mm[Hg] Vahid Nagy CNP Work Phone: [phone] Work Phone: [phone] 13:14-0400Heart rate74 /Kip Nagy CNP Work Phone: [facility] Work Phone: [phone] 13:14-0400Pulse Xhmzawyz05 %Vahidchristiano Nagy [facility] Work Phone: [phone] 13:14-0400Respiratory rate18 /Kip Nagy CNP Work Phone: [phone] Work Phone: [phone] 13:14-9530GdB7% (BldA) [Mass fraction]98 % Vahid Nagy [facility] Work Phone: [phone] Work Phone: [phone] 13:14-0400Systolic blood frxtfyvr662 mm[Hg] Vahid Nagy [employer] Work Phone: [phone] Work Phone: [phone] 10:15-0400Pulse (Heart Rate)78 /Ryan [facility]AdvisorHANNIB[facility], CN48-81-6042 08:00-0400Body Kcbcezjwlll07.5 [degF]Chago CourseAdvisorHANNIBAL [facility], GB70-15-9902 08:00-0400BP Ctyrluowk35 mm[Hg]Chago Marr [facility], JA46-04-1251 08:00-0400BP Koiooauw610 mm[Hg]Chago [facility], CH95-65-2202 08:00-0400Pulse Vaoyslzk61 %Chago Garcia[facility], EC89-44-3883 19:33-0400Respiratory Rate17 /minChago [facility], 07-23-2019 06:00-0400BMI (Body Mass Index)35.9 kg/k0VyopcChago [facility]Met[facility], VN71-70-4969 06:00-0400Body .18 kgChago [facility], 07-18-2019 02:02-2933Pxxbtm647.9 cmChago [facility]Met[facility], QW09-22-1914 23:47-0400BP Pqmqajncj95 mm[Hg]Luis [facility], ZG93-58-8907 23:47-0400BP Fmxeedtp773 mm[Hg][facility], OH31-29-3758 23:47-0400Pulse (Heart Rate)72 /Harish [facility], CW15-36-7822 23:47-0400Respiratory Rate16 /Harish [facility], BF26-39-4575 19:25-0400Pulse Ldonwkki77 %[facility]is [facility], IH73-83-4864 18:28-0400 Respiratory rateNOT REPORTEDEast [facility], WD50-14-7829 17:32-0400 BMI (Body Mass Index)34.01 kg/k6Atjxt [facility], YD38-82-4354 17:32-0400Body Cflzkgqyrhl63.9 [degF]Luis [facility], OE54-26-8667 17:32-0400Body ecskru24.65 kgTerryAultman Orrville [facility], WH93-93-3849 14:47-0400BMI (Body Mass Index)35.7 kg/p3DaoeyVahid [facility] Work Phone: 1(462)[phone]6-6061 14:47-0400Body Wgmxkdotvpj64.5 [degF][facility] Work Phone: [phone]) 14:47-0400Body qqouck68.73 kgAiSelect [facility] Work Phone: 1([phone]) 14:47-0400BP Ugqgyfxfi47 mm[Hg][facility] Work Phone: 1(652) 14:47-0400BP Jjcngdzw939 mm[Hg][facility] Work Phone: [phone]) 14:47-0400BSA (Body Surface Area)1.84 m2 [facility] Work Phone: 1(807) 14:47-5843Yapqqj465.94 cmAKindred Hospital [facility]ima Work Phone: 1(705) 14:47-0400Pulse (Heart Rate)63 /[facility] Work Phone: [phone]) 14:47-0400Pulse Dvevambk92 %[facility] Work Phone: [phone]) 14:47-0400Respiratory Rate18 /[facility] Work Phone: 1([phone] 14:47-5807ZuK6% (BldA) [Mass fraction]96 % [facility] Work Phone: [phone] Work Phone: 1(692) 16:48-0400BP Mewbphybb49 mm[Hg][facility], AL98-95-0905 16:48-0400BP Tfoatipf090 mm[Hg][facility], TY93-49-6757 16:48-0400Pulse (Heart Rate)56 /[facility], XS94-53-8019 16:48-0400Respiratory Rate17 /minEtan [facility], PF63-21-6702 14:53-0400BMI (Body Mass Index)34.01 kg/m2Mukesh Marley [facility], TU65-53-8135 14:53-0400Body Yhgqnirseiu93.4 [degF][facility]ukesh [facility], MH92-28-6855 14:53-0400Body wquhfm20.65 kgB[facility], DA16-54-4509 14:53-0400Pulse Gyzdaocl50 %Mukesh [facility], KL26-81-7067 09:21-0500BMI (Body Mass Index)37.6 kg/t3Jslzu [facility], WF91-63-2813 09:21-0500Body Rzmanmcpbyr01.9 [degF][facility], TY92-95-2964 09:21-0500Body zzjpwy50.27 kgLuis [facility], BL53-26-2751 09:21-0500BP Ovjfnjsem24 mm[Hg][facility] [place] 05-27-2019 09:21-0500BP Caogkqpb909 mm[Hg][facility] [place] 05-27-2019 09:21-0500Pulse (Heart Rate)83 /[facility] [place] 05-27-2019 09:21-0500Pulse Jwdvuivq41 %[facility], OA45-53-6919 09:21-0500Respiratory Rate16 /[facility], BP85-91-4088 15:11-0500BMI (Body Mass Index)37.4 kg/u6Cogqy [facility] Work Phone: [phone]) 15:11-0500Body Xopaziyjvwo83.4 [degF]Vahid [facility] Work Phone: [phone] 15:11-0500Body .81 kgAijuanito [facility] Work Phone: 1(419) 15:11-0500BP Eaervjwmb62 mm[Hg][facility] Work Phone: 1(321) 15:11-0500BP Adnkjsva336 mm[Hg][facility] Work Phone: 1(437) 15:11-0500BSA (Body Surface Area)1.88 m2 [facility] Work Phone: 1(916) 15:11-8010Jjrxvm823.94 cmAimeArkansas [facility] Work Phone: 1(755) 15:11-0500Pulse (Heart Rate)71 /[facility] Work Phone: 1(912) 15:11-0500Pulse Xwyveksp17 %[facility] Work Phone: 1(273) 15:11-0500Respiratory Rate18 /[facility] Work Phone: 1(493) 15:11-9027XvE0% (BldA) [Mass fraction]90 % [facility] Work Phone: [phone] Work Phone: 1([phone] 08:00-0500Body .7 [degF]Albert Andes DO Work Phone: [facility] Work Phone: 1([phone] 08:00-0500Diastolic blood waxwoajd81 mm[Hg] Albert Andes DO Work Phone: [facility] Work Phone: 1([phone] 08:00-0500Heart rate73 /minJustin Andes DO Work Phone: [facility] Work Phone: 1(828) 441-810001-26-2020 08:00-0500Respiratory rate18 /minJustin Andes DO Work Phone: [facility] [employer] Work Phone: 1(368) [phone] 08:00-6020TaD5% (BldA) [Mass fraction]93 % Albert Andes DO Work Phone: [facility] [employer] Work Phone: 1(436) 443-413501-26-2020 08:00-0500Systolic blood eudhnqec519 mm[Hg] Albert Andes DO Work Phone: [facility] [employer] Work Phone: 1(657) 380-586801-26-2020 05:00-0500Body mass index (BMI) [Ratio] 36.81 kg/i0Mdjopi Andes DO Work Phone: [facility] [employer] Work Phone: 1(436) 660-355901-26-2020 05:00-0500Body ytikgd16.36 kgJustin Andes DO Work Phone: [facility] [employer] Work Phone: 1(640) 214-765301-21-2020 22:00-0500Body jqrjzy247.9 cmJustin Andes DO Work Phone: [facility] [employer] Work Phone: 1(112) 113-273101-14-2020 13:56-0500BMI (Body Mass Index)36.4 kg/m2 [facility] Work Phone: 1(785) 13:56-0500Body Riytpvqenqw65.5 [degF][facility] Work Phone: 1(977) 13:56-0500Body wssyjp76.36 kgAiSelect [facility] Work Phone: 1(212) 13:56-0500BP Usdlfxapx44 mm[Hg][facility] Work Phone: 1(781) 13:56-0500BP Ywdoihfj137 mm[Hg][facility] Work Phone: [phone](157)[phone] 13:56-0500BSA (Body Surface Area)1.[address] [facility] Work Phone: 1(082)[phone] 13:56-4169Bbbcze369.[address] Work Phone: [phone](841)[phone] 13:56-0500Pulse (Heart Rate)61 /minAiide [facility] Work Phone: [phone] 13:56-0500Pulse Ttnozlju24 %[facility] Work Phone: [phone](182)[phone] 13:56-0500Respiratory Rate18 /[facility] Work Phone: [phone] 13:56-5144LyB8% (BldA) [Mass fraction]90 % [facility] Work Phone: [facility] Work Phone: [phone]([phone] 14:21-0500Diastolic blood ojrtgkfj38 mm[Hg] Harish Betancourtrov [employer] Work Phone: [facility] [employer] Work Phone: 1(998) 323-838201-12-2020 14:21-2369PuP7% (BldA) [Mass fraction]95 % Harish Betancourtrov DO Work Phone: [facility] Work Phone: 1(902) 167-580901-12-2020 14:21-0500Systolic blood hqeeqrvz494 mm[Hg] Harish Betancourtrov DO Work Phone: [facility] [employer] Work Phone: 1([phone] 420-621901-12-2020 13:02-0500Heart rate60 /minAlexander Bobrov DO Work Phone: [facility] Work Phone: 1(524) 752-435001-12-2020 12:58-0500Respiratory rate20 /minAlexander Serafinrov DO Work Phone: [facility] Work Phone: 1(481) 407-914501-12-2020 10:19-0500Body jfwodx501.9 cmAjonas Sebastian DO Work Phone: [facility] [employer] Work Phone: 1(723) 599-593501-12-2020 10:19-0500Body mass index (BMI) [Ratio]35.9 kg/v2Tluqzrdqbfortunato Sebastian DO Work Phone: [facility] [employer] Work Phone: 1([phone] 10:19-0500Body fvlihfbphqk15.8 [degF] Harish Sebastian DO Work Phone: [facility] [employer] Work Phone: 1(711) 354-586801-12-2020 10:19-0500Body pcvgky25.18 kgAlefortunato Sebastian DO Work Phone: [facility] [employer] Work Phone: 1(190) 288-110012-20-2019 08:34-0500BP Gjcswcxqa68 mm[Hg][facility] Work Phone: [phone](735)[phone] 08:34-0500BP Bhgmynqe291 mm[Hg][facility] Work Phone: [phone](315)[phone] 08:12-0500BMI (Body Mass Index)36 kg/m2 [facility] Work Phone: [phone](876)[phone] 08:12-0500Body Gbcpdxmpdiz05.5 [degF][facility] Work Phone: [phone] 08:12-0500Body cuounh17.46 kgAiidki [facility] Work Phone: 1(907)518-871781-700835-71695205-65-6661 08:12-0500BP Skfsvlsfe35 mm[Hg][facility] Work Phone: 8(251)[phone] 08:12-0500BP Uifngkcu788 mm[Hg][facility] Work Phone: 1(605)[phone]5-7402 08:12-0500BSA (Body Surface Area)1.85 m2 [facility] Work Phone: 1(247)[phone]3-7246 08:121958Dnatpz761.94 cmAKindred [facility] Work Phone: 7(714)051-884700440-94-5094 08:12-0500Pulse (Heart Rate)73 /[facility] Work Phone: 5(539)[phone] 08:12-0500Pulse Rcfymork56 %[facility] Work Phone: 2(062)[phone] 08:12-0500Respiratory Rate18 /[facility] Work Phone: 6(783)084-231165864-70-3044 08:12-5832JdO0% (BldA) [Mass fraction]85 % [facility] Work Phone: [facility] Work Phone: 3(385)954-226225584-63-1813 14:31-0500BMI (Body Mass Index)35.5 kg/m2 [facility] Work Phone: 7(711)634-894159354-75-0440 14:31-0500Body Iseiyfmnfwc67.9 [degF][facility] Work Phone: 7(996)882-220258574-52-5293 14:31-0500Body lkyozd05.28 kgAd[facility] Work Phone: 2(009)[phone] 14:31-0500BP Vhlqfumiu36 mm[Hg][facility] Work Phone: 2(574)877-067604249-04-4425 14:31-0500BP Vbnhzqgo758 mm[Hg][facility] Work Phone: 3(600)742-627984042-83-6868 14:31-0500BSA (Body Surface Area)1.84 m2 [facility] Work Phone: 3(925)453-868178912-04-3933 14:31-5173Unmwxn093.[address] [facility] Work Phone: 1(628) [phone] 14:31-0500Pulse (Heart Rate)61 /[facility] Work Phone: 1(557) 309-663412-03-2019 14:31-0500Pulse Qbkbhwsv80 %[facility] Work Phone: 1(206) 380-867412-03-2019 14:31-0500Respiratory Rate14 /[facility] Work Phone: 1(714) 238-104312-03-2019 14:31-0044JvI2% (BldA) [Mass fraction]88 % [facility] Work Phone: [facility] Work Phone: 1(500) 306-608111-25-2019 20:22-0500BP Lfuqlrreh95 mm[Hg][facility], RV60-31-5718 20:22-0500BP Wwycscvs917 mm[Hg][facility], DE34-34-3217 20:22-0500Respiratory Rate16 /[facility], IH22-14-9873 16:25-0500Pulse Szlrpphk49 %[facility], BG57-22-8805 16:23-0500Body Vigsknnlawo93.71 [degF][facility] HN01-14-6013 16:23-0500Pulse (Heart Rate)68 /[facility]At[facility], BP68-16-7902 09:12-0500BMI (Body Mass Index)35.6 kg/m2 [facility] Work Phone: 3(570)[phone] 09:12-0500Body Kziofkccfac87.7 [degF][facility] Work Phone: 1(179) 518-545011-21-2019 09:12-0500Body tangvu69.55 kgAiSelect [facility] Work Phone: 1(419)[phone] 09:12-0500BP Imdlgxowf31 mm[Hg][facility] Work Phone: 1(915)[phone] 09:12-0500BP Fcsyaxfq685 mm[Hg][facility] Work Phone: 1(546)[phone]2-1958 09:12-0500BSA (Body Surface Area)1.84 m2 [facility] Work Phone: 1(003)[phone] 09:12-5044Ssrybo996.94 cmAimeArk[facility] Work Phone: 1(666)[phone]9-9341 09:12-0500Pulse (Heart Rate)67 /[facility] Work Phone: 9(726)[phone] 09:12-0500Pulse Rqexnkee41 %[facility] Work Phone: 1(563)[phone] 09:12-0500Respiratory Iwss679.6 /[facility] Work Phone: 1(791)[phone]4-9210 09:12-9479ZvO3% (BldA) [Mass fraction]90 % [facility] Work Phone: [facility] Work Phone: 5(654)[phone] 09:50-0400BMI (Body Mass Index)34.8 kg/m2 [facility] Work Phone: [phone](115)[phone] 09:50-0400Body Ogijkhufkvd81.4 [degF][facility] Work Phone: [phone](167)[phone] 09:50-0400Body .55 kgAiSelect [facility] Work Phone: 1(203)[phone] 09:50-0400BP Snrowkzrd89 mm[Hg][facility] Work Phone: 1(494)[phone]1-4302 09:50-0400BP Zfjslfqk662 mm[Hg][facility] Work Phone: 1(043)[phone] 09:50-0400BSA (Body Surface Area)1.82 m2 [facility] Work Phone: 6(138)254-902942897-07-9017 09:50-2332Loirne834.94 cmAimeArkansas State Psych[facility] Work Phone: 1(415)[phone] 09:50-0400Pulse (Heart Rate)64 /[facility] Work Phone: 1(281)[phone] 09:50-0400Pulse Bokrzllh19 %[facility] Work Phone: 2(568)[phone] 09:50-0400Respiratory Rate18 /[facility] Work Phone: 6(743)941-130547148-04-6526 09:50-7411OkU4% (BldA) [Mass fraction]98 % [facility] Work Phone: [facility] Work Phone: 1(751)[phone] 16:41-0400BMI (Body Mass Index)34.9 kg/m2 [facility] Work Phone: 8(111)474-402356515-21-9133 16:41-0400Body Xvmmqmgrhpd33.6 [degF][facility] Work Phone: 5(002)[phone] 16:41-0400Body pjiasa31.78 kgAiSelect [facility] Work Phone: 7(358)[phone] 16:41-0400BP Ymbxblvwh19 mm[Hg][facility] Work Phone: 2(757)570-507274693-97-0585 16:41-0400BP Sbkpbtpg291 mm[Hg][facility] Work Phone: 9(554)639-319150146-60-8282 16:41-0400BSA (Body Surface Area)1.83 m2 [facility] Work Phone: 1(436) 295-867810-24-2019 16:41-0785Vsysap989.94 [facility] Work Phone: 1(215)778-507159043-40-3224 16:41-0400Pulse (Heart Rate)63 /[facility] Work Phone: 9(567)285-331485390-05-5724 16:41-0400Pulse Lurvcdvz81 %[facility] Work Phone: 1(675) 107-423710-24-2019 16:41-0400Respiratory Rate18 /[facility] Work Phone: 1(778)840-362012319-66-0954 16:41-6450NkZ0% (BldA) [Mass fraction]93 % [facility] Work Phone: [facility] Work Phone: [phone] 12:41-0400BMI (Body Mass Index)32.12 kg/m2 [facility], YA94-95-1631 12:41-0400Body Bbjvzbvumyy11.8 [degF] [facility] IO48-55-5857 12:41-0400Body bxgodl04.11 [facility] TS26-47-2001 12:41-0400BP Sdudvjrla61 mm[Hg][facility], ZW25-34-9943 12:41-0400BP Cychfkfi388 mm[Hg][facility], HE87-22-1925 12:41-1622Sfgdnw749.9 [facility] [id number] 12:41-0400Pulse (Heart Rate)75 /[place], [place] 01-13-2019 12:41-0400Pulse Orznwvsm80 %[place] 01-13-2019 12:41-0400Respiratory Rate18 /[facility], [place] 01-12-2019 14:15-0400BMI (Body Mass Index)35.1 kg/d9[facility] Phone: 1(876) 588-385910-14-2019 14:15-0400Body Hyqqxfspvlj66.6 [degF][facility] Work Phone: 1(851) 391-956110-14-2019 14:15-0400Body .19 [facility] Work Phone: 1(988) 899-778910-14-2019 14:15-0400BP Igspykocp63 mm[Hg][facility] Work Phone: 1(526) 984-667110-14-2019 14:15-0400BP Dvdmughw215 mm[Hg][facility] Work Phone: 1(947) 746-962010-14-2019 14:15-0400BSA (Body Surface Area)1.83 m2 [facility] Work Phone: 1(816) 628-914410-14-2019 14:15-8041Tddxxb064.94 [facility] Work Phone: 1(889) 963-201210-14-2019 14:15-0400Pulse (Heart Rate)64 /[facility] Work Phone: 1(700) 624-498910-14-2019 14:15-0400Pulse Wmdavjza59 %[facility] Work Phone: 1(706) 896-985910-14-2019 14:15-0400Respiratory Rate14 /[facility] Work Phone: 1(414) [phone] 14:15-1932JnG6% (BldA) [Mass fraction]91 % [facility] Work Phone: [facility] Work Phone: 1(509) 562-382709-12-2019 17:39-0400BMI (Body Mass Index)32.9 kg/m2 [facility] Work Phone: 1(450)[phone] 17:39-0400Body tfmcja77.06 [facility] Work Phone: 1(282)[phone] 17:39-0400BP Jdgvpzrty42 mm[Hg][facility] Work Phone: [phone](016)[phone] 17:39-0400BP Lhekdiih329 mm[Hg][facility] Work Phone: 1(275)[phone] 17:39-0400BSA (Body Surface Area)1.78 m2 [facility] Work Phone: 1(860)[phone] 17:39-7226Ulmffd186.94 [facility]AK[facility] Work Phone: 1(539)[phone] 17:39-0400Pulse (Heart Rate)85 /[facility] Work Phone: [phone] 17:39-0400Pulse Lveprpos65 %[facility] Work Phone: [phone] 17:39-0400Respiratory Rate18 /[facility] Work Phone: [phone] 17:39-6950OrN3% (BldA) [Mass fraction]82 % [facility] Work Phone: [facility] Work Phone: [phone]([phone] 18:09-0400BMI (Body Mass Index)34 kg/m2 [facility] Work Phone: 6(995)[phone] 18:09-0400Body Uobxkdjzljo14.2 [degF][facility] Work Phone: [phone](012)[phone] 18:09-0400Body agkwdi48.56 kgAiSelect [facility] Work Phone: 2(137)[phone] 18:09-0400BP Bakphwggi91 mm[Hg][facility] Work Phone: [phone](605)[phone] 18:0BP Jeeminju740 mm[Hg][facility] Work Phone: 4(496)[phone] 18:090BSA (Body Surface Area)1.81 m2 [facility] Work Phone: 1(443)[phone] 18:3789Aebbaf757.94 [facility]AKindred [facility] Work Phone: 1([phone]7-1672 18:0Pulse (Heart Rate)67 /[facility] Work Phone: [phone](576)[phone] 18:09-0Pulse Oohuzqfw58 %[facility] Work Phone: 6(774)[phone] 18:090400Respiratory Rate14 /[facility] Work Phone: 7(443)[phone] 18:09-7855TiN8% (BldA) [Mass fraction]92 % [facility] Work Phone: [facility] Work Phone: [phone]([phone] 11:13-0400BMI (Body Mass Index)33.4 kg/m2 [facility] Work Phone: 4(365)[phone] 11:13-0400Body Gysahuygjpj32.5 [degF][facility] Work Phone: [phone](646)[phone] 11:13-0400Body grorqn98.2 kgAiSelect [facility] Work Phone: 6(040)[phone] 11:13-0400BP Ymrswqvhr09 mm[Hg][facility] Work Phone: 6(408)[phone] 11:13-0400BP Wjgwslsv371 mm[Hg][facility] Work Phone: 1(576)[phone] 11:BSA (Body Surface Area)1.79 m2 [facility] Work Phone: [phone](652)[phone] 11:0738Dqhqsl452.94 cmAKindred [facility] Work Phone: 3(871)[phone] 11:0Pulse (Heart Rate)69 /[facility] Work Phone: 4(401)[phone] 11:13-0Pulse Emgnktqj54 %[facility] Work Phone: [phone] 11:13-0Respiratory Rate18 /[facility] Work Phone: 5(864)[phone] 11:13-5826ZaN3% (BldA) [Mass fraction]91 % [facility] Work Phone: [facility] Work Phone: [phone] 17:28-0400BP Swoybkrmg72 mm[Hg][facility] Work Phone: [phone](147)[phone] 17:28-0400BP Tdbpebrw301 mm[Hg][facility] Work Phone: [phone](114)[phone] 16:49-0400BP Exwqtgysw14 mm[Hg][facility] Work Phone: 2(317)[phone] 16:49-0400BP Xofiqjfx860 mm[Hg][facility] Work Phone: 6(645)565-700143797-43-8344 16:34-0400BMI (Body Mass Index)33.9 kg/m2 [facility] Work Phone: 4(046)[phone] 16:34-0400Body Sxocjdydtav40 [degF][facility] Work Phone: [phone](710)[phone] 16:34-0400Body suuqjj72.38 [facility] Work Phone: [phone](186)[phone] 16:34-0400BP Akrudchui41 mm[Hg][facility] Work Phone: [phone] 16:34-0400BP Bhqunkvx125 mm[Hg][facility] Work Phone: [phone](449)[phone] 16:34-0400BSA (Body Surface Area)1.8 m2 [facility] Work Phone: [phone](050)[phone] 16:34-1557Qpebyn671.94 cmAimeArk[facility] Work Phone: [phone]([phone] 16:34-0400Pulse (Heart Rate)65 /[facility] Work Phone: [phone](045)[phone] 16:34-0400Pulse Ztdkaaia50 %[facility] Work Phone: [phone]([phone] 16:34-0400Respiratory Rate18 /[facility] Work Phone: [phone]([phone] 08:55-0400BMI (Body Mass Index)33.3 kg/m2 [facility] Work Phone: [phone]([phone] 08:55-0400Body Wjonchtjtre29.2 [degF][facility] Work Phone: [phone] 08:55-0400Body .83 [facility] Work Phone: 1([phone] 08:55-0400BP Pfhbioymv74 mm[Hg][facility] Work Phone: [phone]([phone] 08:55-0400BP Vpccbmkf194 mm[Hg][facility] Work Phone: [phone](987)[phone] 08:55-0400BSA (Body Surface Area)1.[address] [facility] Work Phone: 1([phone])[phone] 08:55-8257Teerio425.[address] [facility] Work Phone: [phone]([phone] 08:55-0400Pulse (Heart Rate)61 /[facility] Work Phone: [phone] 08:55-0400Pulse Ocnaqyur26 %[facility] Work Phone: [phone] 08:55-0400Respiratory Rate20 /[facility] Work Phone: 1(800) 09:20-0400Body pafqkv282.94 Mar Nagy [facility] Work Phone: [phone] Work Phone: [phone] 09:20-0400Body mass index (BMI) [Ratio]34.3 kg/a2PmmshVahid Nagy [employer] Work Phone: [phone] Work Phone: 1([phone] 09:20-0400Body surface area Derived from formula1.81 g2VeqlxVahid Nagy CNP Work Phone: [phone] Work Phone: [phone] 09:20-0400Body kspenvivqkh26.8 [degF]Vahid Nagy [employer] Work Phone: [phone] Work Phone: [phone] 09:20-0400Body hkyygx03.37 kgAijuanito Nagy [facility] Work Phone: [phone] Work Phone: [phone]) 09:20-0400Diastolic blood zqedyrsc77 mm[Hg] Vahid Nagy CNP Work Phone: [phone] Work Phone: [phone] 09:20-0400Heart rate68 /Kip Nagy CNP Work Phone: [phone] Work Phone: [phone] 09:20-0400Pulse Nviyhiwt84 %Vahid Nagy [facility] Work Phone: [phone] 09:20-0400Respiratory rate18 /Kip Nagy CNP Work Phone: [facility] Work Phone: [phone]([phone] 09:20-2727HqG4% (BldA) [Mass fraction]98 % Vahid Nagy CNP Work Phone: [facility] Work Phone: [phone] 09:20-0400Systolic blood agtvxmcx043 mm[Hg] Vahid Nagy CNP Work Phone: [facility] Work Phone: [phone] 09:27-0500Body mruyua590.94 cmAjoelle Nagy CNP Work Phone: [phone]-[facility] Work Phone: [phone] 09:27-0500Body mass index (BMI) [Ratio]34.2 kg/g5LijifVahid Nagy CNP Work Phone: [phone] Work Phone: [phone] 09:27-0500Body surface area Derived from formula1.81 d2KdnrnVahid Nagy CNP Work Phone: [facility] Work Phone: [phone] 09:27-0500Body fxkttizrzbj99.6 [degF]Vahid Nagy CNP Work Phone: [phone] Work Phone: [phone](732) 09:27-0500Body uzfvzl85.19 kgAijuanito Nagy CNP Work Phone: [phone] Work Phone: [phone](375)[phone] 09:27-0500Diastolic blood mhlywfzh47 mm[Hg] Vahid Nagy CNP Work Phone: [phone] Work Phone: [phone] 09:27-0500Heart rate71 /Kip Nagy CNP Work Phone: [facility] Work Phone: [phone] 09:27-0500Pulse Zgibpfhg58 %Vaihd Nagy [facility] Work Phone: 1(005) 09:27-0500Respiratory rate18 /Kip Nagy CNP Work Phone: [phone] Work Phone: [phone] 09:27-8403HlN5% (BldA) [Mass fraction]92 % Vahid Nagy CNP Work Phone: [facility] Work Phone: [phone] 09:27-0500Systolic blood gzvbebhw236 mm[Hg] Vahid Nagy CNP Work Phone: [phone] Work Phone: [phone]([phone] 09:11-0500Body hsvaiy009.94 cmAjoelle Nagy CNP Work Phone: [facility] Work Phone: [phone] 09:11-0500Body mass index (BMI) [Ratio]33.7 kg/o7XjqwnVahid Nagy CNP Work Phone: [phone] Work Phone: 1(536) 09:11-0500Body surface area Derived from formula1.8 v4TvpozVahid Nagy CNP Work Phone: [phone] Work Phone: 1([phone] 09:11-0500Body juqyzxhfqhl03.3 [degF]Vahid Nagy CNP Work Phone: [phone] Work Phone: [phone] 09:11-0500Body bfonyx21.79 kgVahid Nagy CNP Work Phone: [phone] Work Phone: [phone] 09:11-0500Diastolic blood iggldrqk26 mm[Hg] Vahid Nagy CNP Work Phone: [phone] Work Phone: [phone] 09:11-0500Heart rate72 /Kip Nagy CNP Work Phone: [phone] Work Phone: [phone] 09:11-0500Pain Level7 1Aimeki Nagy CNP Work Phone: [phone] Work Phone: [phone] 09:11-0500Pulse Ejaaldmn17 %Vahid Nagy [facility] Work Phone: [phone] 09:11-0500Respiratory rate18 /Kip Nagy CNP Work Phone: [phone] Work Phone: [phone] 09:11-2518CeX8% (BldA) [Mass fraction]92 % Vahid Nagy CNP Work Phone: [phone] Work Phone: [phone] 09:11-0500Systolic blood dvovmpve565 mm[Hg] Vahid Nagy CNP Work Phone: [phone] Work Phone: [phone]8-4498 15:13-0500BMI (Body Mass Index)34.81 kg/m2 [facility] 46-557899-76808324-60-3726 15:13-0500Body Rhbygzebwhv47.1 [degF][facility] 64-221973-08978839-53-5174 15:13-0500BP Cnnisopdy02 mm[Hg]Ender [facility] 24-94 15:13-0500BP Cvzgpyhq345 mm[Hg][facility] Work Phone: [phone] 15:13-0500BSA (Body Surface Area)1.9 m2 [facility] Work Phone: [phone] 15:13-0705Xfhuxd284.94 cmMadisonburgaddy [facility] Work Phone: [phone] 15:13-0500Pulse (Heart Rate)70 /[facility] 34-701177-82764764-84-1840 15:13-0500Pulse Raojqffx09 %[facility] 01-17 15:13-0500Respiratory Rate20 /[facility]Ad[facility] 02-759714-82228249-36-0949 15:13-2837Zzpdhu83.58 kgAd[facility]Health [facility] Work Phone: [phone] 13:13-0500Body phnump040.94 cmAjoelle Nagy CNP Work Phone: [phone] Work Phone: [phone] 13:13-0500Body mass index (BMI) [Ratio]34.8 kg/p2YxibjVahid Nagy CNP Work Phone: [phone] Work Phone: [phone] 13:13-0500Body surface area Derived from formula1.82 b9CwwptVahid Nagy CNP Work Phone: [phone] Work Phone: 1([phone]2-1427 13:13-0500Body tgbkabvlnyi30.1 [degF]Vahid Nagy CNP Work Phone: [phone] Work Phone: 1(814)[phone]1-5642 13:13-0500Body .46 kgVahid Nagy CNP Work Phone: [phone] Work Phone: 1(978)[phone]9-0750 13:13-0500Body urdymf93.58 kgAijuanito Angelita [facility] Work Phone: [phone]([phone]8-0489 13:13-0500Diastolic blood axvseyyc44 mm[Hg] Vahid Nagy [employer] Work Phone: [facility] Work Phone: [phone]([phone]0-1538 13:13-0500Heart rate70 /Kip Nagy CNP Work Phone: [facility] Work Phone: [phone] [phone] 13:13-0500Respiratory rate20 /Kip Nagy CNP Work Phone: [facility] Work Phone: [phone] 13:13-0500Systolic blood entbltim236 mm[Hg] Vahid Nagy [facility] Work Phone: [facility] Work Phone: [phone]8-5978 10:290500BMI (Body Mass Index)33.73 kg/m2 [facility] 57-816820-96159133-16-5611 10:29-0500Body Dqzovvauoac55.4 [degF][facility] 74-640155-52898747-44-5376 10:29-0500BP Bayxnhlrw89 mm[Hg][facility] 13-214792-27601609-55-7699 10:29-0500BP Ktthkajs081 mm[Hg][facility] 18-295865-97594562-89-4760 10:29-0500BSA (Body Surface Area)1.87 m2 [facility] 42-407353-42290107-93-5671 10:297547Nfwcxk338.94 cmAKindred [facility] 81-33 10:29-0500Pulse (Heart Rate)91 /Kip [facility] Work Phone: [phone] 10:29-0500Pulse Fpsndgmt79 %Vahid Nagy [facility] Work Phone: [phone] 10:29-0500Respiratory Rate18 /[facility]At[facility] Work Phone: [phone] 10:29-1570Kxyrcj47.97 kgBetinaBluffton Hospital Work Phone: [phone] 08:29-0500BMI (Body Mass Index)33.7 kg/m2 Vahid [facility] Work Phone: [phone] 08:29-0500Body xoljow795.94 cmAimeki Nagy CNP Work Phone: [facility] Work Phone: [phone] 08:29-0500Body mass index (BMI) [Ratio]33.6 kg/m7GgzbfVahid Nagy CNP Work Phone: [facility] Work Phone: [phone] 08:29-0500Body surface area Derived from formula1.8 c9LaygrVahid Nagy CNP Work Phone: [phone] Work Phone: [phone] 08:29-0500Body mmamxisngss52.4 [degF]Vahid Nagy CNP Work Phone: [facility] Work Phone: [phone] 08:29-0500Body nxevqf24.74 kgVahid Nagy [employer] Work Phone: [facility] Work Phone: [phone] 08:29-0500Body cklijz13.97 Evelina Nagy [facility] Work Phone: [phone] 08:29-0500Diastolic blood obretvsy40 mm[Hg] Vahid Nagy CNP Work Phone: [facility] Work Phone: [phone]4-9470 08:29-0500Heart rate91 /Kip Nagy [employer] Work Phone: [facility] Work Phone: [phone] 08:29-0500Respiratory rate18 /Kip Nagy [employer] Work Phone: [facility] Work Phone: [phone]1-5570 08:29-0500Systolic blood qosbwwcn210 mm[Hg] Vahid Nagy CNP Work Phone: [facility] Work Phone: [phone](615)[phone]8-5603 16:22-0500BMI (Body Mass Index)33.14 kg/m2 [facility] 05-782629-49310260-33-4294 16:22-0500Body Xlvugmgjtvd82.5 [degF][facility] 90-806028-04584113-12-4967 16:22-0500BP Xjyhlxhym04 mm[Hg][facility] 14-580833-52384541-53-1553 16:22-0500BP Mbsdlxtz415 mm[Hg][facility] 85-539970-22789301-39-5649 16:22-0500BSA (Body Surface Area)1.85 m2 [facility] 49-224741-24294695-27-2943 16:22-5069Obdlod447.[address] 14-933777-93484918-25-0761 16:22-0500Pulse (Heart Rate)75 /[facility] hospital[facility] 11-12-2018 16:22-0500Pulse Klttmgjs58 %Vahid Angelita [facility] 73-629968-03057484-82-2060 16:22-0500Respiratory Rate20 /minVahid [facility] 84-132438-21032895-04-1668 16:22-0544Wismiq59.55 kgSelect [facility] 07-054916-85156277-56-6329 14:22-0500Body .94 cmAjoelle Nagy [employer] Work Phone: [facility] Work Phone: [phone]1-4125 14:22-0500Body mass index (BMI) [Ratio]33.1 kg/s2HcjgyVahid Nagy [facility] Work Phone: [facility] Work Phone: [phone]9-4447 14:22-0500Body surface area Derived from formula1.78 b4CpcxtVahid Nagy [facility] Work Phone: [facility] Work Phone: [phone] 14:22-0500Body curutihrwre70.5 [degF]Vahid Nagy CNP Work Phone: [facility] Work Phone: 1([phone])[phone]4-4169 14:22-0500Body whiygn63.38 Evelina Nagy CNP Work Phone: [facility] Work Phone: [phone]1-7690 14:22-0500Body .55 alizeAd[facility] Hospital Work Phone: [phone] 14:22-0500BSA (Body Surface Area)1.[address] [facility] Work Phone: [phone] 14:22-0500Diastolic blood bbharmju07 mm[Hg] Vahid Nagy CNP Work Phone: [facility] Work Phone: 1([phone] 418-747311-12-2018 14:22-0500Heart rate75 /Kip Nagy CNP Work Phone: [facility] Work Phone: 1([phone] 226-111911-12-2018 14:-0500Respiratory rate20 /Kip Nagy CNP Work Phone: [facility] Work Phone: 1([phone] 138-763511-12-2018 14:-0500Systolic blood uimfzrkl314 mm[Hg] Vahid Nagy CNP Work Phone: [facility] Work Phone: 1([phone] 395-496810-22-2018 12:-0400BMI (Body Mass Index)33.44 kg/m2 [facility] 59-358928-44248427-33-8333 12:-0400Body Rzxgvyuyzdf85.3 [degF][facility] 12-904653-48470166-47-7939 12:01-0400BP Pvyjvloea52 mm[Hg][facility] 87-969229-49349058-51-9065 12:-0400BP Xxwgfcct672 mm[Hg][facility] 47-579950-21390382-99-5895 12:-0400BSA (Body Surface Area)1.86 m2 [facility] 65-386991-02034737-18-1937 12:[address]Fqylhd852.[address] 02-147864-31447275-85-8467 12:-0400Pulse (Heart Rate)71 /[facility] hospitalBetinaidki [facility] 83-971991-14420381-48-5832 12:01-0400Pulse Imtwsyko77 %[facility] 26-932237-12317945-23-7186 12:8554Dpqykr01.29 kgAiBluffton Hospital 10-22-2018 11:01-0400BMI (Body Mass Index)33.44 kg/m2W [facility] Work Phone: [phone] 11:0400Body Qzpshhrigwg02.3 [degF]W [facility] Work Phone: [phone] 11:-0400BP Deseefgtf39 mm[Hg]W [facility] 10-35 11:01-0400BP Bdnaifnj964 mm[Hg]W [facility] 17-95 11:040BSA (Body Surface Area)1.86 m2W [facility] 15-12 11:-4835Rdnzou158.94 cmW [facility] 93-38 11:01-0400Pulse (Heart Rate)71 /minW [facility] 54-88 11:01-0400Pulse Igmavtvo69 %W [facility] 03-61 11:3261Fnncfh00.29 kgW [facility] 01-62 09:01-0400Body oxocsi012.94 cmAkamiki Nagy [employer] Work Phone: [phone] Work Phone: [phone] 09:01-0400Body mass index (BMI) [Ratio]33.4 kg/p2Rwldyjuanito Nagy CNP Work Phone: [phone] Work Phone: [phone] 09:01-0400Body surface area Derived from formula1.79 j4Jprlejuanito Nagy CNP Work Phone: [phone] Work Phone: [phone] 09:01-0400Body fdrqocthccw46.3 [degF]Vahid Nagy CNP Work Phone: [facility] Work Phone: [phone] 09:01-0400Body odsvxk70.29 kgAijuanito Nagy CNP Work Phone: [facility] Work Phone: [phone] 09:01-0400Diastolic blood evkykjgz97 mm[Hg] Vahid Nagy CNP Work Phone: [facility] Work Phone: 1([phone])[phone]7-9011 09:01-0400Heart rate71 /minVahid Nagy CNP Work Phone: [facility] Work Phone: [phone] 09:01-0400Systolic blood xdoebmxh424 mm[Hg] Vahid Nagy CNP Work Phone: [facility] Work Phone: [phone] 12:59-0400BMI (Body Mass Index)33.25 kg/m2 [facility] 13-81 12:59-0400Body Qrhbrqzhtoq89.1 [degF][facility] Work Phone: [phone] 12:59-0400BP Jreqpnurj87 mm[Hg][facility] Work Phone: [phone] 12:59-0400BP Mjwrdezm420 mm[Hg][facility] Work Phone: [phone] 12:59-0400BSA (Body Surface Area)1.85 m2 [facility] Work Phone: [phone] 12:59-1377Psclqr004.94 cmAKindred [facility]ima Work Phone: [phone] 12:59-0400Pulse (Heart Rate)62 /[facility]el[facility] Work Phone: [phone] 12:59-0400Pulse Nvbdyyjy73 %Vahidchristiano [facility]erCaroMont [facility] 98-69 12:59-0400Respiratory Rate20 /[facility] Work Phone: [phone] 12:59-3234Jiyaij94.83 kgSelect [facility] Work Phone: [phone] 11:59-0400BMI (Body Mass Index)33.25 kg/m2 [facility] Work Phone: [phone] 11:59-0400Body Tcbxexsxlmg50.1 [degF][facility] Work Phone: [phone] 11:59-0400BP Qyyhguxjo57 mm[Hg][facility] Work Phone: [phone] 11:59-0400BP Ldknekdi598 mm[Hg][facility] Work Phone: [phone] 11:59-0400BSA (Body Surface Area)1.85 m2 [facility] Work Phone: [phone] 11:59-2503Jgdyjv035.[address] [facility] 22-24 11:59-0400Pulse (Heart Rate)62 /[facility] Work Phone: [phone] 11:59-0400Pulse Eqoxfalc70 %[facility] 31-85 11:59-0400Respiratory Rate20 /[facility] Work Phone: [phone] 11:59-7410Okzlwm44.83 kgSelect [facility] Phone: [phone] 09:59-0400Body zsxeyj186.94 cmAjoelle Nagy CNP Work Phone: [facility] Work Phone: [phone] 09:59-0400Body mass index (BMI) [Ratio]33.3 kg/f3VmdboVahid Nagy CNP Work Phone: [phone] Work Phone: [phone] 09:59-0400Body surface area Derived from formula1.79 t3Zjujzjuanito Nagy CNP Work Phone: [phone] Work Phone: [phone] 09:59-0400Body hcgpcftogic66.1 [degF]Vahid Nagy CNP Work Phone: [facility] Work Phone: [phone] 09:59-0400Body .83 kgAijuanito Nagy CNP Work Phone: [facility] Work Phone: [phone] 09:59-0400Diastolic blood vfwdqnuz93 mm[Hg] Vahid Nagy CNP Work Phone: [phone] Work Phone: [phone] 09:59-0400Heart rate62 /Kip Nagy CNP Work Phone: [phone] Work Phone: [phone] 09:59-0400Respiratory rate20 /Kip Nagy CNP Work Phone: [phone] Work Phone: [phone] 09:59-0400Systolic blood fuvlidlo804 mm[Hg] Vahid Nagy CNP Work Phone: [facility] Work Phone: [phone] 13:31-0400BMI (Body Mass Index)32.52 kg/m2 [facility] [id number] 13:31-0400Body Xhzcmxwcyym77 [degF][facility] [id number] 13:31-0400BP Rbhpihdhz36 mm[Hg][facility] [id number] 13:31-0400BP Ygvgrnlv472 mm[Hg][facility] [id number] 13:31-0400BSA (Body Surface Area)1.83 m2 [facility] [id number] 13:31-9704Iokqlp799.94 [id number] 13:31-0400Pulse (Heart Rate)70 /[facility] [id number] 13:31-0400Pulse Ynkxvgwd46 %[facility] [id number] 13:31-0400Respiratory Rate18 /[facility] [id number] 13:31-4116Iarxrc71.08 kg[facility] 08-28-2018 12:31-0400BMI (Body Mass Index)32.52 kg/m2 [facility] [id number] 12:31-0400Body Ychcptzvclv50 [degF][facility] [id number] 12:31-0400BP Cpgbutgtm82 mm[Hg][facility] 08-28-2018 12:31-0400BP Bmgbbdup440 mm[Hg][facility] 08-28-2018 12:310BSA (Body Surface Area)1.[address] [facility] Work Phone: [phone] 12:31-7365Vhncwx006.[address] [facility] Work Phone: [phone] 12:31-0400Pulse (Heart Rate)70 /[facility]At[facility] 05-67 12:31-0400Pulse Sikhntrz19 %[facility] Work Phone: [phone] 12:31-0400Respiratory Rate18 /[facility] Work Phone: [phone] 12:314425Uivueg57.[address] [facility] Work Phone: [phone] 10:31-0400Body hyhdli837.94 Mar Nagy [facility] Work Phone: [facility] Work Phone: [phone] 10:31-0400Body mass index (BMI) [Ratio]32.5 kg/o5HfpacVahid Nagy CNP Work Phone: [phone] Work Phone: [phone] 10:31-0400Body surface area Derived from formula1.77 t5LvidbVahid Nagy [facility] Work Phone: [phone] Work Phone: [phone] 10:31-0400Body tadckxhgdrg40 [degF]Vahid Nagy CNP Work Phone: [phone] Work Phone: [phone] 10:31-0400Body vypeqo99.02 kgVahid Nagy CNP Work Phone: [phone] Work Phone: [phone] 10:31-0400Diastolic blood mm[Hg] Vahid Nagy CNP Work Phone: [facility] Work Phone: [phone] 10:31-0400Heart rate70 /Kip Nagy CNP Work Phone: [facility] Work Phone: [phone] 10:31-0400Respiratory rate18 /Kip Nagy [employer] Work Phone: [facility] Work Phone: [phone] 10:31-0400Systolic blood yzgnyfyl491 mm[Hg] Vahid Nagy CNP Work Phone: [facility] Work Phone: [phone] 12:21-0400BP Tvufumfka70 mm[Hg][facility] Work Phone: [phone] 12:21-0400BP Tagbikzn648 mm[Hg][facility] Work Phone: [phone] 12:11-0400BMI (Body Mass Index)33.07 kg/m2 [facility] 50-53 12:11-0400Body Zyiuokytdtr30.7 [degF][facility] Work Phone: [phone] 12:11-0400BP Unxajhady046 mm[Hg][facility] Work Phone: [phone] 12:11-0400BP Oqrzcfbt104 mm[Hg][facility] Work Phone: [phone] 12:11-0BSA (Body Surface Area)1.85 m2 [facility] Work Phone: [phone] 12:118927Vrltnb252.94 [facility]AK[facility] Work Phone: [phone] 12:11-0400Pulse (Heart Rate)72 /[facility]elSelect [facility] Work Phone: [phone] 12:11-0400Pulse Hlaphaum74 %[facility] Work Phone: [phone] 12:11-0400Respiratory Rate20 /[facility] Work Phone: [phone] 12:11-4804Dpyedx81.38 kgAiBl[facility] Work Phone: [phone] 11:21-0400BP Gjhhvpquo76 mm[Hg][facility] Work Phone: [phone] 11:21-0400BP Uhoutefl611 mm[Hg][facility] Work Phone: [phone] 11:11-0400BMI (Body Mass Index)33.07 kg/m2 [facility] Work Phone: [phone] 11:11-0400Body Nbgwoxuueas67.7 [degF][facility] Work Phone: [phone] 11:11-0400BP Ydjprdgic427 mm[Hg][facility] Work Phone: [phone] 11:11-0400BP Qrfddjyd617 mm[Hg][facility] Work Phone: [phone] 11:110400BSA (Body Surface Area)1.85 m2 [facility] Work Phone: [phone] 11:110877Qiubft778.[address] [facility] Work Phone: [phone] 11:110400Pulse (Heart Rate)72 /min[facility] Work Phone: [phone] 11:11-0400Pulse Twpitcpz68 %Vahid Angelita [facility] Work Phone: [phone] 11:11-0400Respiratory Rate20 /minVahid [facility] 52-57 11:113693Gytxti79.[address] [facility] 96-95 09:21-0400Diastolic blood tehzhoqk97 mm[Hg] Vahid Nagy [facility] Work Phone: [phone] Work Phone: [phone] 09:21040Systolic blood vjdpcuto208 mm[Hg] Vahid Nagy [facility] Work Phone: [phone] Work Phone: [phone] 09:11-0400Body .94 cmAimeki Nagy [employer] Work Phone: [phone] Work Phone: [phone] 09:11-0400Body mass index (BMI) [Ratio]33.1 kg/i8JaxcvVahid Nagy [facility] Work Phone: [phone] Work Phone: [phone] 09:11-0400Body surface area Derived from formula1.78 h1BaulbVahid Nagy CNP Work Phone: [phone] Work Phone: [phone] 09:110400Body udcgsducfsh80.7 [degF]Vahid Nagy CNP Work Phone: [phone] Work Phone: [phone] 09:110400Body wexwhp11.38 kgVahid Nagy [employer] Work Phone: [phone] Work Phone: [phone] 09:11-0400Diastolic blood rnkwjzio565 mm[Hg]Vahid Nagy [employer] Work Phone: [phone] Work Phone: [phone] 09:11-0400Heart rate72 /Kip Nagy [employer] Work Phone: [facility] Work Phone: [phone] 09:11-0400Respiratory rate20 /Kip Nagy [employer] Work Phone: [facility] Work Phone: [phone] 09:11-0400Systolic blood blempntb207 mm[Hg] Vahid Nagy CNP Work Phone: [facility] Work Phone: [phone] [phone] 17:33-0400BMI (Body Mass Index)34.98 kg/m2 [facility] 42-990587-98072457-05-0830 17:33-0400Body Jrycdvdafid80.7 [degF][facility] 60-540376-01299967-81-4376 17:33-0400BP Srknqzexs75 mm[Hg][facility] 07-12-2018 17:33-0400BP Rfwwjrjn919 mm[Hg][facility] 23-282768-88081532-68-0867 17:33-0400BSA (Body Surface Area)1.9 u7[facility]lmBl[facility] Hospital 76-960711-98531232-41-7393 17:33-2391Zoquho296.[address] 07-12-2018 17:33-0400Pulse (Heart Rate)80 /min[facility] 67-247627-32039573-31-6010 17:33-0400Pulse Dozyubsl34 %[facility] 07-12-2018 17:33-0400Respiratory Rate20 /Marianide [facility] Work Phone: ([phone] 17:33-4855Gzzxzq68.97 alizejuanito [facility] Work Phone: [phone] 16:33-0400BMI (Body Mass Index)34.98 kg/m2 [facility] Work Phone: [phone] 16:33-0400Body Deojctonaop18.7 [degF][facility] Work Phone: [phone] 16:33-0400BP Yfmdlauqc63 mm[Hg][facility] Work Phone: [phone] 16:33-0400BP Kzxizqcv254 mm[Hg][facility] 24-15 16:33-0400BSA (Body Surface Area)1.9 m2[facility] 08-77 16:33-3454Zbnlja274.[address] [facility] 82-04 16:33-0400Pulse (Heart Rate)80 /[facility] 27-27 16:33-0400Pulse Ocdzdhap17 %[facility] Work Phone: [phone] 16:33-0400Respiratory Rate20 /[facility] Work Phone: [phone] 16:33-8213Mycqjn84.97 kgH[facility] Work Phone: [phone] 14:33-0400Body rrqqse313.94 Teresaki Nagy CNP Work Phone: [facility] Work Phone: [phone] 14:33-0400Body mass index (BMI) [Ratio]35 kg/l5NabxsVahid Nagy CNP Work Phone: [facility] Work Phone: [phone] 14:33-0400Body surface area Derived from formula1.83 f2Yqewtjuanito Nagy CNP Work Phone: [facility] Work Phone: [phone] 14:33-0400Body ljmnofqqlgx94.7 [degF]Vahid Nagy CNP Work Phone: [phone] Work Phone: [phone] 14:33-0400Body fexdyk55.92 kgAijuanito Nagy CNP Work Phone: [facility] Work Phone: [phone] 14:33-0400Diastolic blood mm[Hg] Vahid Nagy CNP Work Phone: [facility] Work Phone: [phone] 14:33-0400Heart rate80 /minVahid Nagy CNP Work Phone: [phone] Work Phone: [phone] 14:33-0400Respiratory rate20 /Kip Nagy CNP Work Phone: [facility] Work Phone: [phone] 14:33-0400Systolic blood mm[Hg] Vahid Nagy CNP Work Phone: [facility] Work Phone: [phone] 12:54-0400BMI (Body Mass Index)35.05 kg/m2 [facility] 49-448349-33827834-54-3672 12:54-0400Body Uuxdsuyxymh45 [degF][facility] 97-508251-37521602-94-2670 12:54-0400BP Rxpzhjszh53 mm[Hg][facility] 51-150059-72161326-07-3707 12:54-0400BP Jkbdgqdq975 mm[Hg][facility] 21-067902-57543590-49-6088 12:54-0400BSA (Body Surface Area)1.[address] [facility] Work Phone: [phone] 12:54-2907Wfauzs162.[address] 43-014304-03511539-94-8224 12:54-0400Pulse (Heart Rate)72 /[facility]At[facility] Work Phone: [phone] 12:54-0400Pulse Uwrlpsua07 %[facility]id [facility] 07-524223-59656865-63-3054 12:54-0400Respiratory Rate18 /[facility] 02-517042-21909395-30-0906 12:54-9271Pabtnd11.[address] Work Phone: [phone] 11:54-0400BMI (Body Mass Index)35.05 kg/m2 [facility] 75-892534-83160638-83-7157 11:54-0400Body Jjeanvviobk68 [degF][facility] 22-136798-96767148-72-2898 11:54-0400BP Klbzdxutx82 mm[Hg][facility] 91-191649-89841973-52-0663 11:54-0400BP Jaldoduk911 mm[Hg][facility] 18-730840-17410167-58-9135 11:54-0400BSA (Body Surface Area)1.9 m2 [facility] 82-572685-94078200-48-9749 11:54-7552Iipawz634.94 cmSjeane Grimaldo [facility] 37-351551-01746940-05-4721 11:54-0400Pulse (Heart Rate)72 /minSjeane [facility]doBer[facility] 47-071547-34148347-74-1809 11:54-0400Pulse Lasehgxm94 %Zach Grimaldo [facility] 06-64 11:54-0400Respiratory Rate18 /minSjeane [facility]doBer[facility] 86-40 11:54-8122Ojjgbf95.14 kgZach Grimaldo [facility] 90-34 09:54-0400Body cflpro931.94 cmAimeki Nagy CNP Work Phone: [phone] Work Phone: [phone] 09:54-0400Body mass index (BMI) [Ratio]35 kg/f2QuquzVahid Nagy CNP Work Phone: [phone] Work Phone: [phone] 09:54-0400Body surface area Derived from formula1.83 v2QqtomVahid Nagy CNP Work Phone: [phone] Work Phone: [phone] 09:54-0400Body btehulbnevg89 [degF]Vahid Nagy CNP Work Phone: [phone] Work Phone: [phone] 09:54-0400Body aisapz87.92 kgVahid Nagy CNP Work Phone: [phone] Work Phone: [phone] 09:54-0400Diastolic blood mm[Hg] Vahid Nagy CNP Work Phone: [phone] Work Phone: [phone] 09:54-0400Heart rate72 /Kip Nagy CNP Work Phone: [phone] Work Phone: [phone] 09:54-0400Respiratory rate18 /Kip Nagy CNP Work Phone: [phone] Work Phone: [phone] 09:54-0400Systolic blood hrqyntxv635 mm[Hg] Vahid Nagy [facility] Work Phone: [facility] Work Phone: [phone] 12:55-0400BMI (Body Mass Index)35.36 kg/m2 [facility] Work Phone: [phone] 12:55-0400Body Ktycfzunrzb03.7 [degF][facility] Work Phone: [phone] 12:55-0400BP Swoyydxdm20 mm[Hg][facility] Work Phone: [phone] 12:55-0400BP Vyisrmbf980 mm[Hg][facility] Work Phone: [phone] 12:55-0400BSA (Body Surface Area)1.91 m2 [facility] Work Phone: [phone] 12:55-1310Rmwjqy278.94 cmAimeAr[facility] 82-320774-55689266-42-0704 12:55-0400Pulse (Heart Rate)77 /[facility] Work Phone: [phone] 12:55-0400Pulse Uwweeggv99 %[facility] Work Phone: [phone] 12:55-0400Respiratory Rate18 /[facility] Work Phone: [phone] 12:55-8989Roncbf09.88 kgSelect [facility] 14-924306-53897946-83-7233 11:55-0400BMI (Body Mass Index)35.36 kg/m2 [facility]achernestina [facility] 83-913402-89553796-66-7044 11:55-0400Body Zqmcolqscki66.7 [degF][facility] 05-18-2018 11:55-0400BP Vgxhhptzt50 mm[Hg][facility] 89-35 11:55-0400BP Leqeknil163 mm[Hg][facility] 07-96 11:55-0400BSA (Body Surface Area)1.91 m2 [facility] 31-90 11:55-3896Crzmok495.94 cmSjeane [facility] 23-70 11:55-0400Pulse (Heart Rate)77 /Lise [facility] 90-89 11:55-0400Pulse Urdqqemp02 %Zach [facility] 03-12 11:55-0400Respiratory Rate18 /[facility] 03-62 11:55-7998Axiaxh32.88 kgZach Grimaldo [facility] 84-66 09:55-0400Body lemylz817.94 Silviajoelle Nagy CNP Work Phone: [phone] Work Phone: [phone] 09:55-0400Body mass index (BMI) [Ratio]35.3 kg/e8Bfftyjuanito Nagy CNP Work Phone: [phone] Work Phone: [phone] 09:55-0400Body surface area Derived from formula1.84 v2Tupatjuanito Nagy CNP Work Phone: [phone] Work Phone: [phone] 09:55-0400Body jgvfcmiryaz91.7 [degF]Vahidchristiano Nagy CNP Work Phone: [phone] Work Phone: [phone] 09:55-0400Body ildhau05.82 kgAijuanito Nagy CNP Work Phone: [facility] Work Phone: [phone] 09:55-0400Diastolic blood obopxmnj99 mm[Hg] Vahid Nagy CNP Work Phone: [facility] Work Phone: [phone] 09:55-0400Heart rate77 /Kip Nagy CNP Work Phone: [facility] Work Phone: [phone] 09:55-0400Respiratory rate18 /Kip Nagy CNP Work Phone: [facility] Work Phone: [phone] 09:55-0400Systolic blood ccsobqzu494 mm[Hg] Vahid Nagy CNP Work Phone: [facility] Work Phone: [phone] 12:55-0400BMI (Body Mass Index)35.55 kg/m2 [facility] Work Phone: [phone] 12:55-0400Body Outcusgzhre94.2 [degF][facility] Work Phone: [phone] 12:55-0400BP Qujujtglf16 mm[Hg][facility] Work Phone: [phone] 12:55-0400BP Rwnhqckp145 mm[Hg][facility] Work Phone: [phone] 12:55-0400BSA (Body Surface Area)1.92 m2 [facility] 58-61 12:55-2364Mjimou311.94 cmAimeAr[facility] Work Phone: [phone] 12:55-0400Pulse (Heart Rate)82 /minAimee [facility] Work Phone: [phone] 12:55-0400Pulse Dxqnjiln32 %Vahid Angelita [facility] Work Phone: [phone] 12:55-0400Respiratory Rate18 /Kip [facility] Work Phone: [phone] 12:55-1457Omlify17.[address] [facility] Work Phone: [phone] 11:55-0400BMI (Body Mass Index)35.55 kg/m2 [facility] Work Phone: [phone] 11:55-0400Body Xmjouuncege37.2 [degF][facility] Work Phone: [phone] 11:55-0400BP Twzxplniv78 mm[Hg][facility] Work Phone: [phone] 11:55-0400BP Eqzwokrx425 mm[Hg][facility] Work Phone: [phone] 11:55-0400BSA (Body Surface Area)1.92 m2 [facility] 86-143828-45521355-21-1339 11:55-2230Uvvhtr807.94 cmSjeane [facility] Work Phone: [phone] 11:55-0400Pulse (Heart Rate)82 /minSjeane [facility]doBer[facility] 93-182637-18258297-06-9324 11:55-0400Pulse Nyruntdt43 %Zach Grimaldo [facility] Work Phone: [phone] 11:55-0400Respiratory Rate18 /[facility] 27-550511-40859709-85-9610 11:55-4289Akeoda80.33 alizeshirley Grimaldo [facility] 12-303688-48789709-72-8261 09:55-0400Body anxyxl178.94 Silviajoelle Nagy CNP Work Phone: [facility] Work Phone: [phone] 09:55-0400Body mass index (BMI) [Ratio]35.5 kg/s5OyvacVahid Nagy CNP Work Phone: [phone] Work Phone: [phone] 09:55-0400Body surface area Derived from formula1.84 c4Jfrhzjuanito Nagy CNP Work Phone: [facility] Work Phone: [phone] 09:55-0400Body ywmzpbsqkvg64.2 [degF]Vahid Nagy CNP Work Phone: [facility] Work Phone: [phone] 09:55-0400Body lfnudl21.28 kgAijuanito Nagy CNP Work Phone: [phone] Work Phone: [phone] 09:55-0400Diastolic blood gnjontnv35 mm[Hg] Vahid Nagy CNP Work Phone: [phone] Work Phone: [phone] 09:55-0400Heart rate82 /Kip Nagy CNP Work Phone: [phone] Work Phone: [phone] 09:55-0400Respiratory rate18 /Kip Nagy CNP Work Phone: [facility] Work Phone: [phone] 09:55-0400Systolic blood xbxnsahn944 mm[Hg] Vahid Nagy CNP Work Phone: [facility] Work Phone: [phone] 14:54-0400BMI (Body Mass Index)35.33 kg/m2 [facility] Work Phone: [phone] 14:54-0400Body Qtfbxsjndpj58.1 [degF][facility] Work Phone: [phone] 14:54-0400BP Gguhupooo52 mm[Hg][facility] 71-56 14:54-0400BP Wqarfwzs051 mm[Hg][facility] 56-78 14:54-0400BSA (Body Surface Area)1.91 m2 [facility] 79-93 14:54-2831Dgsoyb337.[address] 79-63 14:54-0400Pulse (Heart Rate)69 /[facility] 15-94 14:54-0400Pulse Rhcfdtlk40 %[facility] 41-19 14:54-0400Respiratory Rate20 /[facility] 51-38 14:54-1081Krrwoq12.82 kg[facility] 35-60 13:54-0400BMI (Body Mass Index)35.33 kg/m2 [facility] 11-31 13:54-0400Body Lklqtiezwdk11.1 [degF][facility] 65-13 13:54-0400BP Msvbyblth13 mm[Hg][facility]an[facility] 18-81 13:54-0400BP Kbedwrqw243 mm[Hg][facility] 42-99 13:54-0400BSA (Body Surface Area)1.91 m2 [facility] Work Phone: [phone] 13:54-0963Dljlqo626.94 cmSjeane [facility] 64-95 13:54-0400Pulse (Heart Rate)69 /[facility] 33-40 13:54-0400Pulse Nyvglbtw66 %Zach Grimaldo [facility] 38-44 13:54-0400Respiratory Rate20 /[facility] 21-81 13:54-7843Ibsses53.82 kgZach Grimaldo [facility] 76-94 11:54-0400Body rufohi196.94 Mar Nagy CNP Work Phone: [phone] Work Phone: [phone] 11:54-0400Body mass index (BMI) [Ratio]35.3 kg/r8HjuodVahid Nagy CNP Work Phone: [phone] Work Phone: [phone] 11:54-0400Body surface area Derived from formula1.84 b0EdlvvVahid Nagy CNP Work Phone: [phone] Work Phone: [phone] 11:54-0400Body sxvbghafbmp85.1 [degF]Vahid Nagy CNP Work Phone: [phone] Work Phone: [phone] 11:54-0400Body cukgyq80.82 kgVahid Nagy CNP Work Phone: [phone] Work Phone: [phone] 11:54-0400Diastolic blood uzbyzfhx79 mm[Hg] Vahid Nagy CNP Work Phone: [phone] Work Phone: [phone] 11:54-0400Heart rate69 /Kip Nagy CNP Work Phone: [facility] Work Phone: [phone] [phone] 11:54-0400Respiratory rate20 /Kip Nagy CNP Work Phone: [facility] Work Phone: [phone] 246-802404-30-2018 11:54-0400Systolic blood juaedxvv553 mm[Hg] Vahid Nagy CNP Work Phone: [facility] Work Phone: [phone] 819-481911-17-2017 15:36-0500BMI (Body Mass Index)39.32 kg/m2 [facility] 11-17-2017 15:36-0500Body Gixlszckbqi68.3 [degF][facility] 11-17-2017 15:36-0500BP Czfgnyygr50 mm[Hg][facility] 11-17-2017 15:36-0500BP Djrxfirv260 mm[Hg][facility] [id number] 15:36-0500BSA (Body Surface Area)2.02 m2 [facility] 11-17-2017 15:36-0795Bhgoot236.[address] [facility] 11-17-2017 15:36-0500Pulse (Heart Rate)78 /[facility] 11-17-2017 15:36-0500Pulse Wepchlad01 %[facility] 11-17-2017 15:36-0500Respiratory Rate22 /[facility] 11-17-2017 15:36-1611Pakmin52.41 [phone] 14:36-0500BMI (Body Mass Index)39.32 kg/m2 [facility] [id number] 14:36-0500Body Bdqbuzasgrt11.3 [degF][facility] [id number] 14:36-0500BP Wjoamazor06 mm[Hg][facility] 11-17-2017 14:36-0500BP Dbulnmlr076 mm[Hg][facility] 11-17-2017 14:36-0500BSA (Body Surface Area)2.02 m2 [facility] 11-17-2017 14:36-5054Efqwge944.94 cmSjeane [facility] [id number] 14:36-0500Pulse (Heart Rate)78 /[facility] 11-17-2017 14:36-0500Pulse Bylltcmr60 %Zach [facility] 11-17-2017 14:36-0500Respiratory Rate22 /minSjeane [facility] 11-17-2017 14:36-4564Zgxgdx24.41 Deb Grimaldo [facility] 10-17-2017 13:35-0400BMI (Body Mass Index)40.08 kg/m2 Vahid [facility] 10-17-2017 13:35-0400Body Tcunawbyuce75.8 [degF][facility] 10-17-2017 13:35-0400BP Jdhbnqbef63 mm[Hg][facility] 10-17-2017 13:35-0400BP Zjasovxt158 mm[Hg][facility] [phone] 13:35-0400BSA (Body Surface Area)2.04 m2 [facility] 10-17-2017 13:35-0400BSA (Body Surface Area)2.03 m2 [facility] 10-17-2017 13:35-3127Ofnolo236.[address] [facility] 10-17-2017 13:35-0400Pulse (Heart Rate)73 /[facility] 10-17-2017 13:35-0400Pulse Riojfsli78 %[facility] 10-17-2017 13:35-0400Respiratory Rate20 /[facility] 10-17-2017 13:35-3374Dakjbk41.22 [facility] 10-17-2017 12:35-0400BMI (Body Mass Index)40.08 kg/m2 [facility] 71-532060-25384488-18-5853 12:35-0400Body Bjazkrjpfcx22.8 [degF][facility] 10-17-2017 12:35-0400BP Bhvsroing53 mm[Hg][facility] 10-17-2017 12:35-0400BP Gevuqlmq385 mm[Hg][facility] 10-17-2017 12:35-0400BSA (Body Surface Area)2.04 m2 [facility] 10-17-2017 12:35-0400BSA (Body Surface Area)2.03 m2 [facility] 86-680834-82801659-84-3167 12:35-1596Rqgorr773.94 cmSjeane [facility] 16-020267-01441148-17-8578 12:35-0400Pulse (Heart Rate)73 /minSjeane [facility] 98-373636-09320807-60-7915 12:35-0400Pulse Ghotqyet44 %Zach Grimaldo [facility] 10-17-2017 12:35-0400Respiratory Rate20 /[facility] 81-118292-99211126-71-5026 12:35-8057Brunqr22.22 kgStshirley [facility] 16-238351-06880614-94-2484 13:31-0400BMI (Body Mass Index)39.16 kg/m2 [facility] 95-113194-46759472-21-2375 13:31-0400Body Qldobakfkyl32.9 [degF][facility] Work Phone: [phone] 13:31-0400BP Adbrgltns85 mm[Hg][facility] Work Phone: [phone] 13:31-0400BP Jonlbptd648 mm[Hg][facility] 59-418809-37567033-42-1833 13:31-0400BSA (Body Surface Area)2.01 m2 [facility] 52-004028-59942293-44-6254 13:31-1563Tgnslf197.[address] 92-919319-79114610-61-0647 13:31-0400Pulse (Heart Rate)72 /minAimee [facility] Work Phone: [phone] 13:31-0400Pulse Fgigjqva68 %Vahid Nagy [facility] Work Phone: [phone] 13:31-0400Respiratory Rate22 /lioneljuanito [facility] Work Phone: [phone] 13:3227Oyanyl46[address] [facility] Work Phone: [phone] 12:31-0400BMI (Body Mass Index)39.16 kg/m2 [facility] Work Phone: [phone] 12:31-0400Body Hmvxmotoihm87.9 [degF][facility] Work Phone: [phone] 12:31-0400BP Cyaouiwjz78 mm[Hg][facility] 50-71 12:31-0400BP Upujwpjq327 mm[Hg][facility] Work Phone: [phone] 12:31-0BSA (Body Surface Area)2.01 m2 [facility] Work Phone: [phone] 12:31-9115Baxmrf039.94 cmSjeane [facility] Work Phone: [phone] 12:310Pulse (Heart Rate)72 /minSjeane Gr[facility]doBer[facility] Work Phone: [phone] 12:31-0400Pulse Qfcmfxxv60 %Zach Grimaldo [facility] Work Phone: [phone] 12:310400Respiratory Rate22 /Lise [facility] Work Phone: [phone] 12:310116Iowkoh64.01 Deb Grimaldo [facility] 44-527621-96990779-84-2699 11:14-0500BMI (Body Mass Index)40.32 kg/m2 [facility] 88-564338-73544360-91-4714 11:14-0500Body Epzbeudnmem70 [degF][facility] 70-877447-07130460-65-6284 11:14-0500BP Hxxylokqk89 mm[Hg][facility] 15-944798-65038025-33-0653 11:14-0500BP Ldhswucy583 mm[Hg][facility] 67-097583-14068156-35-9472 11:14-0500BSA (Body Surface Area)2.04 m2 [facility] 65-920873-35546623-26-4867 11:14-9199Dtynqo639.94 cmAimeArkansas State [facility] 45-251320-47392430-84-6652 11:14-0500Pulse (Heart Rate)86 /min[facility] 26-027044-31932016-66-8631 11:14-0500Pulse Tnvmlzkr80 %[facility] 38-489997-93162820-23-7558 11:14-3474Irhjic83.79 kg[facility] 06-776138-48350552-36-8541 10:14-0500BMI (Body Mass Index)40.32 kg/m2 [facility] 11-763111-91477293-57-7218 10:14-0500Body Hktlaxaevtu59 [degF]Zachernestina Gr[facility]doBer[facility] 57-437172-09284554-32-6060 10:14-0500BP Jywptonym19 mm[Hg]Zachernestina [facility]doBer[facility] 60-999383-34632593-16-7674 10:14-0500BP Nyyqcxxa557 mm[Hg]Zachernestina Gr[facility]doBer[facility] 98-586315-98333349-55-9555 10:14-0500BSA (Body Surface Area)2.04 m2 [facility] 59-027623-11734329-07-1365 10:144342Amtbns882.94 cmSteven [facility] 38-448350-16576840-23-9802 10:14-0500Pulse (Heart Rate)86 /minSjeane [facility] 06-946596-72629624-35-1609 10:14-0500Pulse Zjcedfmj14 %Zach [facility] 37-074991-03634281-49-4199 10:14-8746Fsjjpf56.79 kgStshirley Grimaldo [facility] 12-11-2015 12:30-0500BMI (Body Mass Index)40.53 kg/m2 [facility] 12-11-2015 12:30-0500Body Jgxsrbiumyd19.1 [degF][facility] 12-11-2015 12:30-0500BP Ctavayfhl58 mm[Hg][facility] 12-11-2015 12:30-0500BP Fmgsvtto434 mm[Hg][facility] 12-11-2015 12:30-0500BSA (Body Surface Area)2.05 m2 [facility] 12-11-2015 12:30-2236Yexhqb691.[address] 12-11-2015 12:30-0500Pulse (Heart Rate)82 /[facility] 12-11-2015 12:30-0500Respiratory Rate18 /[facility] 12-11-2015 12:30-2741Eludwr47.3 kg[facility] 12-11-2015 11:30-0500BMI (Body Mass Index)40.53 kg/m2 [facility] 71-530903-50236603-29-0657 11:30-0500Body Jjgtfcdhqsg56.1 [degF][facility] 24-27798025-03-0511 11:30-0500BP Fnmrqpmii31 mm[Hg][facility] 94-751577-36854920-82-7799 11:30-0500BP Avnaktlm799 mm[Hg][facility] 12-11-2015 11:30-0500BSA (Body Surface Area)2.05 m2 [facility] 12-11-2015 11:30-0153Vnrqmz483.94 cmSjeane [facility] 28-526664-61817072-52-2627 11:30-0500Pulse (Heart Rate)82 /[facility] 53-140678-52033524-46-9161 11:30-0500Respiratory Rate18 /[facility] 07-34216099-82-9848 11:30-4881Cmyuts23.3 kgStshirley [facility] 11-12-2015 11:50-0500BP Aeklswmnc92 mm[Hg]Vahid [facility] 11-12-2015 11:50-0500BP Ycmsueyy461 mm[Hg][facility] 11-12-2015 11:50-0500Pulse (Heart Rate)85 /lionelChristoki [facility] 11-12-2015 11:34-0500BMI (Body Mass Index)39.77 kg/m2 [facility] 78-36 11:34-0500Body Dwuvynseisg75 [degF][facility] 08-262997-70480774-55-8711 11:34-0500BP Epoahhhof13 mm[Hg][facility] 11-12-2015 11:34-0500BP Dayxrugg439 mm[Hg][facility] 11-12-2015 11:34-0500BSA (Body Surface Area)2.03 m2 [facility] 11-12-2015 11:34-7325Ecinox124.[address] [facility] 15-635769-81249152-71-0532 11:34-0500Pulse (Heart Rate)88 /[facility] 11-12-2015 11:34-0500Pulse Okdinyue28 %[facility] 78-393394-07131344-82-3539 11:34-0500Respiratory Rate18 /[facility] 22-918032-06116085-63-8820 11:34-0176Xxivia02.48 kg[facility] 11-12-2015 10:50-0500BP Zfrwxlfji80 mm[Hg]Zahc [facility] 32-977199-05074146-95-3773 10:50-0500BP Rmywlglg105 mm[Hg][facility] 11-12-2015 10:50-0500Pulse (Heart Rate)85 /minStenathalie DillanBerkshire Medical [facility] 11-12-2015 10:34-0500BMI (Body Mass Index)39.77 kg/m2 Zach [facility] 11-12-2015 10:34-0500Body Uuqxqheciwd48 [degF][facility] 11-12-2015 10:34-0500BP Pffftdkbm00 mm[Hg][facility] 11-12-2015 10:34-0500BP Paooeafy034 mm[Hg][facility] 11-12-2015 10:34-0500BSA (Body Surface Area)2.03 m2 [facility] 11-12-2015 10:34-6932Yiqcxv481.94 cmSjeane [facility] 11-12-2015 10:34-0500Pulse (Heart Rate)88 /[facility] Hospitalnathalie [facility] 11-12-2015 10:34-0500Pulse Bpqvbqqj26 %Zach [facility] 11-12-2015 10:34-0500Respiratory Rate18 /Lise [facility] 11-12-2015 10:34-7290Jehowb08.48 kgStshirley Grimaldo [facility] Encounters Encounter DateEncounter TypeCare ProviderFacilityStart: 01-14-2025 End: 41-70-1826Bszhdn flowsheetSteven A Rusher DPM Work Phone: [facility]iatryStart: 01-14-2025 End: 98-05-6095Htxdwp flowsheetSteven A Rusher DPM Work Phone: [facility] PodiatryStart: 01-13-2025 End: 67-01-1387cyxbuqdmwhXEXFGC [facility] Centertart: 01-05-2025 End: 26-19-4822Gqozleeys department patient visitSTEMercy Health Tiffin Hospitaltart: 01-04-2025 End: 08-99-4111efwveyxhvaBUWQFU [facility] HospitalStart: 01-01-2025 End: 17-90-8800nkrpnxnmvwWWFRZRChildren's Hospital for Rehabilitation HospitalStart: 12-30-2024 End: 59-94-2043Shjqveqybz and management of inpatientSalexandrorebel Lane Jerica DO Work Phone: [facility] Comment on above:Acute cystitis without hematuria (Primary Dx); HypoxiaStart: 12-21-2024 End: 12-25-4743Rexxgzrgp encounterVik Vargas NP Work Phone: [facility] HospitalnceStart: 12-13-2024 End: 39-02-5576Dcpjdnlpuf and management of inpatientSTETidelands Georgetown [facility] Hospital HospitalStart: 12-08-2024 End: 48-07-6150Rxlqciusuxgrr procedureStenathalie Saravia DPM Work Phone: [facility] InStart: 12-05-2024 End: 37-01-8912Ebdjdsvajj and management of inpatientSTETidelands Georgetown Memorial Hospital HospitalStart: 11-19-2024 End: 31-63-5606Lhatoeggf department patient visitSMARIA ELENA [facility] DepartmentComment on above:Chronic right hip pain (Primary Dx); Open wound of foot excluding toes; Chronic right hip pain; Lumbar back pain with radiculopathy affecting right lower extremity; Chronic left hip pain; Chronic pain syndrome; Sacral painStart: 10-22-2024 End: 59-98-1638Uqjsqxlgnf and management of inpatientMARK W Pedro [facility] HospitalStart: 97-34-7513dltyshdzmkPSNOXNPrisma Health [facility] HospitalStart: 09-03-2024 End: 99-76-7120xduggnwqpeDBLGJRFormerly [facility] HospitalStart: 09-03-2024 End: 82-40-0051Qojumijzdf hospital visit by physicianSmaria elena Rodriguez MD Work Phone: [facility] LABStart: 08-12-2024 End: 95-42-5151Vwslpuoblf and management of inpatientSmaria elena Rodriguez MD Work Phone: mthz [facility] MED SURGComment on above:Open wound of foot excluding toes (Primary Dx); Open wound of toe, initial encounter; PVD (peripheral vascular disease) with claudication; Unable to care for self; Chronic right hip pain; Lumbar back pain with radiculopathy affecting right lower extremity; Chronic left hip pain; Chronic pain syndromeStart: 08-07-2024 End: 44-58-7579Hqjxqsrtj encounterProclay [facility] Med[facility] Management Work Phone: [facility] Medication ManagementStart: 08-06-2024 End: 28-78-8508Yaxwrvqdcw and management of inpatientSmaria elena Rodriguez MD Work Phone: mthz [facility] MED SURGComment on above:Claudication in peripheral vascular disease (Primary Dx); PAD (peripheral artery disease); Ulcer of both feet with fat layer exposed (HCC); Oxygen dependent - 2L per baseline; Cellulitis of lower extremity, unspecified laterality; Fall, subsequent encounterStart: 07-27-2024 End: 16-63-1696vfsayzapajVRKTPR [facility] Centertart: 07-24-2024 End: 74-85-6958Zabfmlsqu department patient visitSOhioHealth Arthur G.H. Bing, MD, Cancer Centertart: 07-17-2024 End: 29-26-9968Cubtpvudf encounterCatKettering [facility] Medication ManagementStart: 07-13-2024 End: 58-72-8775Dlngrhlvrf and management of inpatientSOhioHealth Arthur G.H. Bing, MD, Cancer Centertart: 05-16-2024 End: 62-93-7935Vsjjopldb department patient visitSOhioHealth Arthur G.H. Bing, MD, Cancer Centertart: 04-17-2024 End: 39-14-8620Qsxnpq OnlyRebeca Johnson MD Work Phone: ProOhiohealth Doctors Hospitalca Surgeons Sign InStart: 04-17-2024 End: 18-95-5957Vaaggtsyiu and management of inpatientSTriHealth Bethesda North Hospitaltart: 04-16-2024 End: 15-97-1818Omhmfhibf department patient visitSGUSTAVO RODRIGUEZSalem Regional Medical Center HospitalStart: 03-27-2024 End: 22-55-2438Jygoeajvj department patient visitSTEBANNER OCOTILLO [facility] JENNIFERSalem [facility] HospitalStart: 03-18-2024 End: 04-79-1578Qktriqkcg department patient visitSKINDRED HEALTHCARE JENNIFERSalem [facility] Center HospitalStart: 86-56-7217Rux-patient / Non-visitDO Carlo Grimaldo Work Phone: [facility] V[facility] Work Phone: Start: 55-46-5037Tqm-patient / Non-visitDO Carlosandee Grimaldo Work Phone: [facility] Pulmonary Disease Work Phone: Start: 01-19-2024 End: 71-65-4589Ntuifhaezy and management of inpatientDO Carlo Grimaldo Work Phone: [facility] Work Phone: Start: 01-14-2024 End: 15-87-5477Wsmwbf Aleida Vallejo [facility] HOSPITALProMedica Physicians Digestive HealthcareComment on above:Gastrointestinal hemorrhage, unspecified gastrointestinal hemorrhage type (Primary Dx); Chronic gastrointestinal hemorrhage; Gastric ulcer without hemorrhage or perforation, unspecified chronicityStart: 01-13-2024 End: 66-14-6337Vvwdfevnl Mateo DWYERAProMedbenedicto Physicians Digestive HealthcareComment on above:Hospital Follow-upStart: 01-02-2024 End: 32-60-2458Samctvpdm department patient visitGERBER Calixto [facility] HospitalStart: 11-27-2023 End: 08-99-9988bhgktjcdfcUPQLWV IACOBMercy [facility] HospitalStart: 11-11-2023 End: 86-65-3939Iraykxrscs hospital visit by Layne Rodriguez MD Work Phone: [facility] RadiologyStart: 12-13-2022 End: 23-19-4945Wmxosxpzps and management of [facility] HospitalINNA MARIEE [facility] Hospitaltart: 08-13-2022 End: 07-35-5063Jglovsljck hospital visit by Layne Rodriguez MD Work Phone: mthz LaboratoryComment on above:Chronic obstructive pulmonary disease, unspecified COPD type (HCC); Chronic right hip pain; Sacral pain; Lumbar back pain with radiculopathy affecting right lower extremity; Chronic left hip painStart: 07-29-2022 End: 15-96-5529Ddjcgjlea department patient visitSmaria elena Rodriguez MD Work Phone: [facility] EDComment on above:Coccyx pain (Primary Dx)Start: 07-26-2022 End: 90-01-0429Lltesjiovm hospital visit by Layne Rodriguez MD Work Phone: mthz LaboratoryComment on above:Primary hypertension; Lipid screening; Hypothyroidism, unspecified type; Hyperglycemia; Chronic obstructive pulmonary disease, unspecified COPD type (HCC); Chronic right hip pain; Sacral pain; Lumbar back pain with radiculopathy affecting right lower extremity; Chronic left hip pain; Chronic pain syndromeStart: 07-21-2022 End: 45-08-2622Hcmrpihlp department patient visitSmaria elena Rodriguez MD Work Phone: [facility] EDComment on above:Contusion of coccyx, initial encounter (Primary Dx); Fall, initial encounterStart: 23-91-8506zzmqynhpvyOARHJ COTTEN Facility:[facility]art: 94-80-6747cbohogzliaGIBWG COTTEN Facility:[facility]tart: 04-27-2022 End: 63-87-8957Qhmgpx consultation new/estab patient 39 Jojo Chery APRN-DISTRIBUTED GENERATION PROJECT MANAGER Work Phone: General and Gastrointestinal Surgery [facility] Comment on above:Ventral hernia without obstruction or gangrene (Primary Dx); Tobacco useStart: 01-04-2022 End: 50-98-4105Itsrkzrwon hospital visit by [facility] Mri ScannerMTHZ LaboratoryComment on above:Chronic right hip painRecurrent abdominal hernia without obstruction or gangrene, unspecified hernia type; Right lower quadrant abdominal massStart: 97-25-6424lcbnbgyubgLIMSS COTTEN Facility:[facility]tart: 97-76-0338lsddzwsqpvHJMEF COTTEN Facility:[facility]tart: 08-25-2021 End: 04-95-4288oqmwluldnhKF DOCTOR MISCFacility:P9Tuckv: 07-19-2021 End: 47-64-5542yfsduymhakKBRKSB Y HANFacility:[facility]ITALtart: 07-19-2021 End: 50-05-0279Robfptvtrs hospital visit by Sylvie Pickett MD Work Phone: [facility] EndoscopyComment on above:Pancreatic mass Start: 06-20-2021 End: 24-60-7556Mxojcqhzog hospital visit by [facility] Cat Scan RoomST. [facility] LaboratoryComment on above:Urinary incontinence, unspecified typeRight sided abdominal painStart: 04-10-2021 End: 80-56-8883Rttvmobqch hospital visit by [facility] Xr Dr Room [address] [place] [address] RadiologyComment on above:Chronic right hip pain; Fall, initial encounter; Right hip painStart: 03-17-2021 End: 97-00-3764Gccjdqxcw department patient visitSmaria elena Rodriguez MD Work Phone: [facility] EDComment on above:Pneumonia due to infectious organism, unspecified laterality, unspecified part of lung (Primary Dx); Cellulitis of left lower extremity; Acute on chronic respiratory failure with hypoxia (HCC); Pleural effusion, bilateralStart: 02-09-2021 End: 37-90-3736Jfuerqioh department patient visitUniversity Hospitals [facility] EDComment on above:Closed head injury, initial encounter (Primary Dx); Fall, initial encounter; Contusion of right knee, initial encounterStart: 01-17-2021 End: 76-19-1365Oxkntqwga department patient visitMarita Munoz DO Work Phone: [facility] EDComment on above:Intractable vomiting with nausea, unspecified vomiting type (Primary Dx)Start: 01-12-2021 End: 88-56-9209Ctcnloqie department patient visitAlbert Ibrahim DO Work Phone: [facility] EDComment on above:Near syncope (Primary Dx); Multiple contusions; Abrasion of right knee, initial encounterStart: 12-04-2020 End: 75-24-2144Xjwldnbuf department patient visitMukesh Marley MD Work Phone: [facility] EDComment on above:Pelvic pain (Primary Dx)Start: 04-12-2020 End: 14-39-6115Sqterpacxil [facility] Work Phone: [facility] Work Phone: Start: 04-05-2020 End: 28-24-1172Bdmqibufo department patient visitChfantatrell Saeed Alexander Work Phone: [facility] EDComment on above:Acute right- sided low back pain without sciatica (Primary Dx)Start: 03-21-2020 End: 54-72-1436Tlyvcyhwp department patient visitAimeki [facility] EDComment on above:Sacroiliac joint pain (Primary Dx)Start: 03-18-2020 End: 79-40-3445Dsvwhdaonj and management of inpatientHeminderet Martinez Work Phone: stvz CAR 1Comment on above:S/P cardiac cath; S/P angioplasty with stentStart: 03-17-2020 End: 79-82-0428Poeecpxfnm hospital [facility] by physicianOr[facility] Cost Accounting Manager 1MTHZ CATH LABStart: 03-17-2020 End: 18-02-3636Ljdkndpdzw and management of inpatientAli F O Ahmad Work Phone: mthz [facility] MED SURGComment on above:Chest pain, unspecified type (Primary Dx)Start: 03-13-2020 End: 00-83-5242Eyorznrnr department patient visitMukesh Marley Work Phone: [facility] EDComment on above:Congestive heart failure, unspecified HF chronicity, unspecified heart failure type (HCC) (Primary Dx); Bronchitis; COPD exacerbation (HCC)Start: 02-12-2020 End: 39-44-1615Uaimewvtc department patient visitDeion Loaiza Work Phone: [facility] EDComment on above: Osteoarthritis, unspecified osteoarthritis type, unspecified site (Primary Dx); Avascular necrosis (HCC); Urinary tract infection without hematuria, site unspecifiedStart: 02-04-2020 End: 98-04-1650Rsogfjcsvm hospital visit by [facility] Cost Accounting Manager 1MTHZ CATH LABStart: 01-28-2020 End: 00-26-8353Kjruhlgqet hospital visit by Aaliyah Hernandez [facility] COMM [facility] CTRStart: 01-28-2020 End: 29-89-5874Etuezybyucz patientKaitlupis Dina Work Phone: [facility] Work Phone: Start: 11-16-2019 End: 10-08-6031Qwuklihdtn hospital visit by Aaliyah Hernandez [facility] COMM [facility] CTRStart: 11-16-2019 End: 29-60-7830Ggafzkf encounter procedureAlpakleber Capps Work Phone: [facility] Work Phone: Start: 11-16-2019 End: 21-48-1457Owdkkzkxiek lucilaki Nagy Work Phone: [facility] Work Phone: Start: 10-21-2019 End: 05-55-4128Dxfmselhj department patient visitMukesh Marley Work Phone: [facility] EDComment on above:Virginia choudhury, right, initial encounter (Primary Dx)Start: 10-21-2019 End: 38-93-4956Qnosjbrwcer patientNitza Mark Work Phone: [facility] Work Phone: Start: 10-21-2019 End: 66-04-6832Vwlxaixsnid patientKatherine Mark Work Phone: [facility] Work Phone: Start: 10-07-2019 End: 59-49-1716Lkctwepox department patient visitSyed Ariana Whitten Work Phone: [facility] EDComment on above:Opioid overdose, accidental or unintentional, initial encounter (HCC) (Primary Dx); Pneumonia due to organismStart: 10-06-2019 End: 41-13-4228Ipgcsvqqn department patient visitMicMercer County Community Hospital EDComment on above:Chronic obstructive pulmonary disease with acute exacerbation (HCC) (Primary Dx); Pneumonia due to organism; Cough; Chronic bilateral low back pain with bilateral sciaticaStart: 10-01-2019 End: 82-59-6330Onxbxqjalx hospital visit by [facility] Cost Accounting Manager Rm 1MTHZ CATH LABComment on above:Canceled (Patient preference)Start: 09-28-2019 End: 58-31-8261Irailiddok hospital visit by physicianSt. [facility] Kwakuid Screening ScheduleST. V[facility] Covid ScreeningComment on above:ArrivedStart: 09-24-2019 End: 33-85-5206Qnqeniqsuro Pascual Holliday Work Phone: [facility] Work Phone: Start: 09-23-2019 End: 46-89-8032Vhzptwvfnrla consultation with Tre Nagy Work Phone: [facility] Work Phone: Start: 09-21-2019 End: 89-44-3830Jlkonzntby hospital visit by Aaliyah NagyST. [facility] Laboratory Comment on above:ASHD (arteriosclerotic heart disease); S/P angioplasty with stent; Mixed hyperlipidemia; Essential hypertension; Tobacco abuse counseling; Bilateral carotid artery disease, unspecified type (HCC); PVD (peripheral vascular disease) ([facility]); Abdominal aortic aneurysm (AAA) without rupture ([facility]); SOB (shortness of breath)Start: 09-21-2019 End: 78-56-6942Swmsygdyyp hospital visit by physicianOr[facility] Paz19 Pat Screening ScheduleST. VINC[facility]'S [facility] PRE ADMITStart: 09-17-2019 End: 68-82-9295Baeftrlnpi hospital visit by [facility] Cardiology Stress Room [facility] Stress LabComment on above:ArrivedStart: 09-16-2019 End: 47-02-5385Kohxhemone hospital visit by [facility] Cardiology Stress Room [facility] Stress LabComment on above:ASHD (arteriosclerotic heart disease); S/P angioplasty with stent; Mixed hyperlipidemia; Essential hypertension; Tobacco abuse counseling; Abdominal aortic aneurysm (AAA) without rupture (HCC); PVD (peripheral vascular disease) (HCC); Bilateral carotid artery disease, unspecified type (HCC); Lightheadedness; DizzinessStart: 09-15-2019 End: 95-60-9059XydyhfmSwgpxja Short Work Phone: [facility] Work Phone: Start: 09-15-2019 End: 46-62-7894Shaeumebfemr consultation with [employer]formantonline Work Phone: [facility] Work Phone: Start: 09-09-2019 End: 88-62-8135Cgtpkmnmzyad consultation with [employer] Work Phone: [facility] Work Phone: Start: 09-03-2019 End: 61-21-0957Udwrvmbcnu hospital visit by [facility]ST[facility] EchocardiographyComment on above:ASHD (arteriosclerotic heart disease); S/P angioplasty with stent; Mixed hyperlipidemia; Essential hypertension; Tobacco abuse counseling; Abdominal aortic aneurysm (AAA) without rupture (HCC); PVD (peripheral vascular disease) (HCC); Bilateral carotid artery disease, unspecified type (HCC); Lightheadedness; DizzinessStart: 08-26-2019 End: 59-25-3249Whtlgamktlbw consultation with [employer]online Work Phone: [facility] Work Phone: Start: 07-30-2019 End: 53-93-3894Aprhahbdlfzt consultation with [employer]online Work Phone: [facility] Work Phone: Start: 07-18-2019 End: 43-33-6208Uvzcqcitjh and management of inpatientJames A Deb Work Phone: st[facility] Ortho/Med SurgComment on above:Atherosclerosis of artery of extremity with intermittent claudication (HCC); Incontinence; Chronic obstructive pulmonary disease, unspecified COPD type (HCC)Start: 07-17-2019 End: 01-48-9087Jtqfhzrlh department patient visitTyza Diaz Work Phone: [facility] EDComment on above:Acute respiratory failure with hypoxia and hypercapnia (HCC) (Primary Dx); Viral pneumonia; Acute pulmonary edema (HCC)Start: 07-09-2019 End: 54-74-8740Vguvxfkukmtv consultation with Tre Nagy Work Phone: [facility] Work Phone: Start: 06-17-2019 End: 54-95-5050Ugtlsqswose Tre Nagy Work Phone: [facility] Work Phone: Start: 06-15-2019 End: 16-01-4328Qrqkxqtpd department patient visitMukesh Ki Martinezzara Work Phone: [phone] [place] [address] EDComment on above:Benign paroxysmal positional vertigo, unspecified laterality (Primary Dx)Start: 05-27-2019 End: 51-78-5476Mgrcdtqkc department patient visitTyza Diaz Work Phone: [phone] [place] [address] EDComment on above:Contusion of left hand, initial encounter (Primary Dx)Start: 05-01-2019 End: 11-99-0480Fqaidlvyvfu Tre Nagy Work Phone: [facility] Work Phone: Start: 04-21-2019 End: 54-99-0405Wicipkezos and management of inpatientJustin Andes DO Work Phone: mthz [facility] MED SURGComment on above:Pneumonia due to organism (Primary Dx); COPD, severity to be determined (HCC); COPD with exacerbation (HCC)Start: 04-14-2019 End: 31-44-1699Tjyykfuhfev patientStenathalie Grimaldo Work Phone: [facility] Work Phone: Start: 04-14-2019 End: 09-66-2993Lncxmmnermt Tre Nagy Work Phone: [facility] Work Phone: Start: 04-12-2019 End: 78-77-1017Xxcakitqg department patient visitAlefortunato Sebastian DO Work Phone: [facility] EDComment on above:Acute pain of left shoulder (Primary Dx); DizzinessStart: 03-20-2019 End: 97-84-9985Ggutziqutuq Tre Nagy Work Phone: [facility] Work Phone: Start: 03-12-2019 End: 60-80-1602Lamgdjj encounter procedureVahid Nagy Work Phone: [facility] Work Phone: start: 03-03-2019 End: 33-38-9946Svjtzsu encounter procedureVahid Nagy Work Phone: [facility] Work Phone: Start: 03-03-2019 End: 76-97-7062Hayrucrkcgk patientCabriana Malik Work Phone: [facility] Work Phone: Start: 02-23-2019 End: 07-60-5796Toytzevtr department patient visitMiccolten Sanjaybalaji Work Phone: [facility] EDComment on above:Abdominal pain, unspecified abdominal location (Primary Dx); Anxiety stateStart: 02-23-2019 End: 91-58-1993Ezlhqnqbnd hospital visit by [facility] MRIComment on above:Spinal stenosis of lumbar region, unspecified whether neurogenic claudication present; DDD (degenerative disc disease), lumbarStart: 02-19-2019 End: 60-89-5814Rpicmyeqekj patientSteven Grimaldo Work Phone: [facility] Work Phone: Start: 02-19-2019 End: 21-17-4853Bcjoatppwdy patientVahid Nagy Work Phone: [facility] Work Phone: Start: 01-29-2019 End: 78-61-5028Facepxb evaluation of patient and reportLee Karla Adams Work Phone: [facility] Work Phone: Start: 01-22-2019 End: 88-07-4140Efnnovrwcot Tre Nagy Work Phone: [facility] Work Phone: Start: 01-14-2019 End: 14-75-1653Jurcihp encounter procedureCashashankradha King Work Phone: [facility] Work Phone: start: 01-13-2019 End: 04-61-9922Ceeevxvxo department patient [facility]AiGen[facility] EDComment on above:Near syncope (Primary Dx); Fall from standing, initial encounter; HyponatremiaStart: 01-12-2019 End: 22-62-4332Osrzdrtgzu [facility] Karen Carroll [address] [place] [address] RadiologyComment on above:Pain of left upper extremityStart: 01-12-2019 End: 69-28-1236Dwaoporzjmn patientCabriana Malik Work Phone: [facility] Work Phone: Start: 12-11-2018 End: 22-51-6568Iuvbsmpsoos Tre Nagy Work Phone: [facility] Work Phone: Start: 10-30-2018 End: 81-42-0424Igbjxbjlkaj [facility] Angelita Work Phone: [facility] Work Phone: Start: 09-30-2018 End: 82-07-8302Xvkromuicir patientStenathalie Grimaldo Work Phone: [facility] Work Phone: Start: 08-27-2018 End: 88-76-6644Ehprrfxgiga patientVahid Nagy Work Phone: [facility] Work Phone: Start: 07-28-2018 End: 38-39-6958Ahuexkixloh patientVahid Nagy Work Phone: [facility] Work Phone: Start: 06-27-2018 End: 47-38-1402Xxsihlsfaxp patientVahid Nagy Work Phone: [facility] Work Phone: Start: 06-10-2018 End: 28-97-2590Raxmsjq encounter procedureAijuanito Nagy Work Phone: [facility] Work Phone: start: 05-30-2018 End: 97-00-4093Ttllezzgssk patientVahid Nagy Work Phone: [facility] Work Phone: Start: 05-07-2018 End: 13-74-6775Prqwgmg encounter procedureVahid Nagy Work Phone: [facility] Work Phone: start: 04-29-2018 End: 81-31-5997Grplavauwnc patientVahid Nagy Work Phone: [facility] Work Phone: Start: 75-51-7802Aeymbg outpatient visit 15 minutes [facility] Bonilla [facility] 03-26-2018 End: 13-74-1702Dpwhptw encounter procedureAijuanito Nagy [facility] Work Phone: [facility] Work Phone: start: 62-78-8793Xptmhba encounter procedureMELISSA MADDISON FOXFacility:[facility]art: 02-24-2018 End: 96-06-9464Urloyfr encounter procedureVahid Nagy CNP Work Phone: [facility] Work Phone: start: 86-56-8640Ngvgay outpatient visit 15 minutes Vahid Nag[facility]: 52-18-4851Nuwqii outpatient visit 15 minutesVahid Nagy [facility]: 02-10-2018 End: 95-85-9063Pmzcwmk encounter procedureVahid Nagy CNP Work Phone: [facility] Work Phone: start: 01-20-2018 End: 86-36-7324Awhfxyf encounter procedureVahid Nagy CNP Work Phone: [facility] Work Phone: Start: 01-20-2018 End: 09-46-2540Vzkune outpatient visit 15 minutesVahid Nagy [facility]: 12-27-2017 End: 57-98-0405Pwezmvk encounter procedureVahid Nagy CNP Work Phone: [facility] Work Phone: start: 12-27-2017 End: 06-40-2828Tfnzgl outpatient visit 15 minutesVahid Nagy [facility]: 11-26-2017 End: 31-69-8367Tvcqrhy encounter procedureVahid Nagy CNP Work Phone: [facility] Work Phone: Start: 78-25-9166Dctp bld gluc mntr dev cleared fda spec home useAimee DaniellaenHealth Dosher Memorial Hospital start: 11-26-2017 End: 78-51-4222Qvkqrt outpatient visit 25 minutesVahid Nagy Other [facility]: 10-22-2017 End: 32-12-6956Pryybjb encounter procedureVahid Nagy CNP Work Phone: [facility] Work Phone: start: 10-22-2017 End: 45-43-9426Oibpsw outpatient visit 15 minutesVahid Nagy Other [facility]: 10-10-2017 End: 39-38-2696Stlyho outpatient visit 15 minutesSingh Azevedo [facility]: 10-10-2017 End: 14-29-4445Oojejth encounter procedureVahid Nagy CNP Work Phone: [facility] Work Phone: start: 09-11-2017 End: 45-95-2023Zusxlie encounter procedureAijuanito Nagy CNP Work Phone: [facility] Work Phone: start: 09-11-2017 End: 12-26-5455Arourlwwfk HealthStevernestina Grimaldo [facility]: 75-59-7357Gnnd bld gluc mntr dev cleared fda spec home useSteven RobinsonBerkshire Medical Center start: 09-11-2017 End: 68-21-9460Zpbpmh outpatient visit 15 minutesVahid Nagy [facility]: 08-16-2017 End: 26-03-7516Wyujlym encounter procedureAijuanito Nagy CNP Work Phone: [facility] Work Phone: start: 54-85-4572Rxwg bld gluc mntr dev cleared fda spec home useSteven RobinsonBerkshire Medical Center start: 08-16-2017 End: 10-65-2759Zaxgiy outpatient visit 15 minutesVahid Nagy [facility]: 08-06-2017 End: 33-06-2705Gggesdm encounter procedureAijuanito Nagy CNP Work Phone: [facility] Work Phone: Start: 05-81-5129Onyhlsvhvr examination, unspecified Vahid [facility] Start: 43-02-0161Y-reactive proteinSteasheville specialty hospital Grimaldo [facility] Start: 06-22-5541Bvebgblgesocd metabolic panelSteRegency Hospital Start: 26-66-5786Vxe bone density study 1/> sites axial skelSSt. [facility] Start: 65-09-6991Moqc bld gluc mntr dev cleared fda spec home useSteasheville specialty hospital AgorafyBerkshire Medical Center Start: 19-53-7218Omvoiaftbsz analyte qual/semiqual multiple stepSteasheville specialty hospital AgorafyBerkshire Medical Center Start: 08-06-2017 End: 69-00-0772Danxdq outpatient visit 15 minutesAijuanito Nagy Other [facility]: 40-30-2081Bysgt spine cervical 2 or 3 viewsZach AgorafyBerkshire Medical Center Start: 34-69-9231Xujcn spine lumbosacral 2/3 views Zach GrimaldoBerkshire Medical Center Start: 21-30-9421Qrxdr spine thoracic 2 viewsZach GrimaldoBerkshire Medical Center Start: 87-27-6266Tfizbinudbttb rate rbc automatedSternestina [facility] Start: 46-63-2248Fpegjodobu examination, unspecified Vahid [facility] start: 07-29-2017 End: 09-75-6980Krzgzqc encounter procedureVahid Nagy DISTRIBUTED GENERATION PROJECT MANAGER Work Phone: [facility] Work Phone: Start: 30-86-8410Eaam bld gluc mntr dev cleared fda spec home useSteven DillanBerkshire Medical Center start: 07-29-2017 End: 36-49-4641Dabshn outpatient visit 15 minutesChristoki Nagy [facility]: 02-15-2017 End: 27-16-4946Iobpyk outpatient visit 15 minutesLuelizabeth Azevedo [facility]: 96-40-7657Mrqmz spine lumbosacral 2/3 viewsStshirley GrimaldoBerkshire Medical Center Start: 02-15-2017 End: 55-49-1868Odqsflu encounter procedureChristoki Nayg DISTRIBUTED GENERATION PROJECT MANAGER Work Phone: [facility] Work Phone: start: 01-15-2017 End: 47-67-3367Abkvnrj encounter procedureConversion Provider Work Phone: [facility] Work Phone: start: 35-24-4867Htcybwf use cessation intermediate 3- 10 minutesZach GrimaldoBerkshire Medical Center Start: 01-15-2017 End: 74-97-4249Lwivfs outpatient visit 15 minutesLuelizabeth Roberto Carlos [facility]: 12-14-2016 End: 66-50-9344Aadugxo encounter procedureChristoki Nagy DISTRIBUTED GENERATION PROJECT MANAGER Work Phone: [facility] Work Phone: start: 79-78-9198Wjbijtg use cessation intermediate 3- 10 minutesStshirley GrimaldoBerkshire Medical Center start: 12-14-2016 End: 68-19-1243Ssrbglgkpw HealthStshirley Grimaldo Other [facility]: 12-14-2016 Comprehensive metabolic panelSteven DillanBerkshire Medical Center start: 81-37-6673Zydw bld gluc mntr dev cleared fda spec home useSjeane GrimaldoBerkshire Medical Center start: 01-82-8097Mbhxzqhhn c antibodyZach Grimaldo [facility] start: 12-14-2016 End: 71-61-7080Ugiryg outpatient visit 15 minutesLuke Roberto Carlos [facility]: 04-14-2015 End: 34-26-3354Idqniht encounter procedureAijuanito Nagy CNP Work Phone: [facility] Work Phone: start: 04-14-2015 End: 49-72-9914Aflodaccsy Hermelinda Grimaldo [facility]: 04-14-2015 End: 01-62-1475Mureat outpatient visit 15 minutesLuke Roberto Carlos [facility]: 03-11-2015 End: 93-79-2534Tpbiifo encounter procedureAijuanito Nagy CNP Work Phone: [facility] Work Phone: start: 28-99-8060Qnkjepfszqtra metabolic panelSjeane [facility] start: 49-41-0143Byks bld gluc mntr dev cleared fda spec home useSjeane GrimaldoBerkshire Medical Center start: 79-23-1962Hirjzrehp, screeningZach Grimaldo [facility] start: 03-11-2015 End: 33-09-4551Rttqno outpatient visit 15 minutesLuke Roberto Carlos [facility]: 02-10-2015 End: 36-54-7915Ytqwlyb encounter procedureConversion Provider Work Phone: [facility] Work Phone: start: 02-10-2015 End: 66-50-0507Gtgkbbkbeb Hermelinda Grimaldo [facility]: 02-10-2015 Colonoscopy w/biopsy single/multipleSteven [facility] start: 97-28-4415Cwsl bld gluc mntr dev cleared fda spec home useSteven [facility] start: 11-54-4173Qziaxixto, screeningSteven [facility] start: 02-10-2015 End: 93-76-8799Sqxtgk outpatient visit 15 minutesLuke Roberto Carlos Other [facility] Procedures DateProcedureProcedure DetailPerforming ClinicianStart: 08-83-8472Ykfpzzona serum plasma/whole bloodTaaggie Amado DOCUMENT CLERK-DISTRIBUTED GENERATION PROJECT MANAGER Work Phone: Start: 53-99-9340WFPAEHF GLUCOSENat Reynolds MD Work Phone: Start: 46-70-4274CNNLQNM GLUCOSENat Reynolds MD Work Phone: Start: 55-39-3497Kqylbckacsvrg metabolic panelTaeler Aneudy DOCUMENT CLERK-DISTRIBUTED GENERATION PROJECT MANAGER Work Phone: Start: 18-38-4513ZWIOF TUBESNat Reynolds MD Work Phone: Start: 64-20-7262FYROJ TUBES BLUE TOPNat Reynolds MD Work Phone: Start: 94-14-2893RSQVXKW GLUCOSENat Reynolds MD Work Phone: Start: 36-87-7865Tjfjuwqyk serum plasma/whole blood Nat Reynolds MD Work Phone: Start: 61-46-6023UTSZFAV Orion Reynolds MD Work Phone: Start: 17-77-9692Qhbfcyqki serum plasma/whole blood Taaggie Amado DOCUMENT CLERK-DISTRIBUTED GENERATION PROJECT MANAGER Work Phone: Start: 93-49-0114IYZRKMP Orion Reynolds MD Work Phone: Start: 82-64-9814Fmqzfjdlahsnz metabolic panelTaeler Aneudy DOCUMENT CLERK-DISTRIBUTED GENERATION PROJECT MANAGER Work Phone: Start: 25-04-7690NESGI OXIMETRY, SPOTTaeler Amado DOCUMENT CLERK-DISTRIBUTED GENERATION PROJECT MANAGER Work Phone: Start: 29-69-6449BPTZYXH GLUCOSENat Reynolds MD Work Phone: Start: 99-13-5218II EXTRA URINEAmber Pablo DOCUMENT CLERK-DISTRIBUTED GENERATION PROJECT MANAGER Work Phone: Start: 94-43-5220XH EXTRA URINE CULTUREAmber Pablo DOCUMENT CLERK-DISTRIBUTED GENERATION PROJECT MANAGER Work Phone: Start: 63-40-1678LA EXTRA URINE MARBLEAmber Shah DOCUMENT CLERK-DISTRIBUTED GENERATION PROJECT MANAGER Work Phone: Start: 47-34-8438Ihpzl dip stick/tablet rgnt auto w/o microscopyShayne A Pizano DO Work Phone: Start: 55-77-0764Dh angiography chest w/contrast/noncontrastAmber Pablo DOCUMENT CLERK-DISTRIBUTED GENERATION PROJECT MANAGER Work Phone: Start: 93-30-4500Qlrsn of troponin quantitativeAmber Pablo DOCUMENT CLERK-DISTRIBUTED GENERATION PROJECT MANAGER Work Phone: Start: 49-13-2776Tiqlbdhebh exam chest single view Kellen Pablo DOCUMENT CLERK-DISTRIBUTED GENERATION PROJECT MANAGER Work Phone: Start: 79-72-8038Jrlzwrnlboafo metabolic panelAmber Pablo DOCUMENT CLERK-DISTRIBUTED GENERATION PROJECT MANAGER Work Phone: Start: 73-01-0227Eezixlhf screenSTEFAN IACOBComment on above:Performed By: #### TSC ####[facility] ([address] [address] VIRStart: 61-29-8506Nxeqzorowb microscopic only Filomena Holli DOCUMENT CLERK - DISTRIBUTED GENERATION PROJECT MANAGER Work Phone: Start: 39-18-2306Hlcha dip stick/tablet rgnt auto w/o microscopyKrEastmoreland Hospital Work Phone: Start: 95-70-6516Aa pelvis w/o contrast materialAcuteCare Health System Work Phone: Start: 66-02-2969Worbmvsroubfo metabolic panelAcuteCare Health System Work Phone: Start: 11-19-2024 End: 27-98-2162Nozwf foot complete minimum 3 viewsKrEastmoreland Hospital Work Phone: Start: 44-62-8716Pjr bact xcpt urine blood/stool aerobic isolMegall Jose A Vishal [facility] Work Phone: Start: 95-92-5683LRCLE METABOLIC PANEL W/ REFLEX TO MG FOR LOW KShirley A [facility] Work Phone: Start: 65-41-9090Wxpbc count complete auto&auto difrntl wbcShirley A [facility] Work Phone: Start: 15-80-6899CIESW METABOLIC PANEL W/ REFLEX TO MG FOR LOW KShirley A [facility] Work Phone: Start: 18-26-9322Iwmew count complete auto&auto difrntl wbcShirley A [facility] Work Phone: Start: 59-74-9051UDGCN METABOLIC PANEL W/ REFLEX TO MG FOR LOW KShirley A [facility] Work Phone: Start: 28-68-2471Maqsg count reticulocyte automated Osmar Rodriguez MD Work Phone: Start: 78-32-3807PCFDDWN B12 & FOLATEStdiego Rodriguez MD Work Phone: Start: 90-47-2233BDRGO METABOLIC PANEL W/ REFLEX TO MG FOR LOW KShirley A [place] DOCUMENT CLERK - DISTRIBUTED GENERATION PROJECT MANAGER Work Phone: Start: 77-16-6202Kbftl count complete auto&auto difrntl wbcShirley A Fabi DOCUMENT CLERK - DISTRIBUTED GENERATION PROJECT MANAGER Work Phone: Start: 30-92-6072XDUGX METABOLIC PANEL W/ REFLEX TO MG FOR LOW KShirley A Fabi DOCUMENT CLERK - DISTRIBUTED GENERATION PROJECT MANAGER Work Phone: Start: 38-13-7621Xtsvf count complete auto&auto difrntl wbcShircristian Dunlap DOCUMENT CLERK - DISTRIBUTED GENERATION PROJECT MANAGER Work Phone: Start: 63-85-4816Bdyyvgr bacterial blood aerobic w/id isolatesKelly Y Ariza PA-C Work Phone: Start: 08-12-2024 End: 63-84-8156Msmkocztca examination foot 2 viewsKelly Y Ariza PA-C Work Phone: Start: 82-23-5860Eilnm metabolic panel calcium total Ashley Y Ariza PA-C Work Phone: Start: 94-47-6175X-reactive proteinKelly Y Ariza PA-C Work Phone: Start: 07-61-8719DTPTIMI, BLOOD 1Kelly Y Ariza PA-C Work Phone: Start: 96-61-8700LLMMK METABOLIC PANEL W/ REFLEX TO MG FOR LOW KShirley Ariana Dunlap DOCUMENT CLERK - DISTRIBUTED GENERATION PROJECT MANAGER Work Phone: Start: 97-64-1552Dumfz count complete auto&auto difrntl wbcShircristian Dunlap DOCUMENT CLERK - DISTRIBUTED GENERATION PROJECT MANAGER Work Phone: Start: 60-31-9951SKSFG METABOLIC PANEL W/ REFLEX TO MG FOR LOW KShirley Ariana Dunlap DOCUMENT CLERK - DISTRIBUTED GENERATION PROJECT MANAGER Work Phone: Start: 51-36-3516Mnoff count complete auto&auto difrntl wbcShircristian Dunlap DOCUMENT CLERK - DISTRIBUTED GENERATION PROJECT MANAGER Work Phone: Start: 81-85-2717Uudczre function panelShircristian ConnerKeefe [facility] - [facility] Work Phone: Start: 46-50-5082FPXJG METABOLIC PANEL W/ REFLEX TO MG FOR LOW KShircristian PeterThe [facility]ppard [facility] Work Phone: Start: 68-70-7820Ddyio count complete auto&auto difrntl wbcOliva Lane [facility] Work Phone: Start: 11-88-1537Jon-scan lxtr art/artl bpgs compl bi studyBhumimorteza Adorno Rodrigo DPM Work Phone: Start: 80-84-9628NJITW METABOLIC PANEL W/ REFLEX TO MG FOR LOW Ethan TristanSaint [facility] Institute Work Phone: Start: 31-34-9137Vfggh count complete auto&auto difrntl wbcOliva Lane [facility] Work Phone: Start: 70-28-0373Smtixbm bacterial blood aerobic w/id isolatesShaida Lane [facility] Work Phone: Start: 93-99-9561Neahfoejxz glycosylated x4pDsocmkbOliva PeterAsc[facility] Work Phone: Start: 28-91-6571GCCJOMT, SEPSISShircristian Lane [facility] Work Phone: Start: 08-06-2024 End: 96-60-4724Cd lower extremity w/contrast materialSalisha Lane [facility] Work Phone: Start: 33-91-8934Nt thorax w/contrast materialSabiliorcristian Lane [facility] Work Phone: Start: 28-87-4935Zy head/brain w/o contrast material Oliva Ariana [facility] Work Phone: Start: 91-48-7796Hng routine ecg w/least 12 lds i&r onlyOliva Dunlap DOCUMENT CLERK - DISTRIBUTED GENERATION PROJECT MANAGER Work Phone: Start: 68-19-2952Jzt prim src gram/giemsa stain bct fungi/cellSalisha Dunlap DOCUMENT CLERK - DISTRIBUTED GENERATION PROJECT MANAGER Work Phone: Start: 84-68-1255Kprha count complete auto&auto difrntl wbcOliva Dunlap DOCUMENT CLERK - [facility] Work Phone: Start: 99-97-5839DPMJMVY, BLOOD 1Shiberhane Bales [facility] [employer] [facility] Work Phone: Start: 96-47-8601Bipev depression screening assessment Rebeca Johnson MD Work Phone: Start: 67-82-5113Sjqgxx scan of lower limb veinsDO Carlo Grimaldo Work Phone: Start: 62-37-0852Ksxhylch tomography of abdomen and pelvis with contrastDO Carlo Grimaldo Work Phone: Start: 73-68-5943XY angiography of thoraxDO Carlo Grimaldo Work Phone: Start: 69-90-0816Wzqeg chest X-rayDO Carlo Grimaldo Work Phone: Start: 17-37-6770Jcbxyadsjyu Panel (PCR)DO Carlo Grimaldo Work Phone: Start: 03-42-0070Huusk Occult Blood (JESS)DO Carlo Grimaldo Work Phone: Start: 58-20-4407LtftfrkyayfKkpdeb Iacob MD Work Phone: Start: 41-29-1360Emlnp depression screening assessment Irena Vallejo CMAStart: 65-43-2166Kouohecwoqjjg metabolic panelSmaria elena Rodriguez MD Work Phone: Start: 68-37-4778Qiuhm albumin quantitativeStdiego Rodriguez MD Work Phone: Start: 07-26-2022 End: 24-37-9427Icclh panelSmaria elena Rodriguez MD Work Phone: Start: 07-26-2022 End: 48-77-0783Quymqsveaahib metabolic panelSmaria elena Rodriguez MD Work Phone: Start: 36-61-4999Ybxkydgdegoi [Mass/volume] in Urine by Test stripCatterry Vargas MAStart: 07-21-2022 End: 43-93-5871Iyzxf spine lumbosacral 2/3 viewsOlgaian Diego THORNE Work Phone: Start: 03-10-9102Xxx any jt lower extrem w/o contrast matrlSmaria elena Rodriguez MD Work Phone: Start: 13-81-0235Ni abdomen & pelvis w/contrast Naren Rodriguez MD Work Phone: Start: 90-61-2749Dwmqmylrkr bloodStdiego Rodriguez MD Work Phone: Start: 07-19-2021 End: 91-25-7114RFB W/ ULTRASOUNDSadenise Pickett MD Work Phone: Start: 22-28-4860Povwhjh measurement, bloodPedrito Pickett MD Work Phone: Start: 59-49-9041JNAQKCBVUC ENDOSCOPICStephanie A Adelina DOCUMENT CLERK-DISTRIBUTED GENERATION PROJECT MANAGER Work Phone: Start: 72-04-4028Ppymfri measurement, bloodPedrito Pickett MD Work Phone: Start: 18-30-2617Zr abdomen & pelvis w/contrast Naren Rodriguez MD Work Phone: Start: 06-15-7644Slyga count complete auto&auto difrntl wbcStdiego Rodriguez MD Work Phone: Start: 41-48-6327Xxkea hip unilateral with pelvis 2-3 viewsStdiego Rodriguez MD Work Phone: Start: 27-51-3489CTYOI METABOLIC PANEL W/ REFLEX TO MG FOR LOW KShirley A [place] DOCUMENT CLERK - DISTRIBUTED GENERATION PROJECT MANAGER Work Phone: Start: 02-10-3357Lbzbs count complete auto&auto difrntl wbcOliva Tristan DOCUMENT CLERK - DISTRIBUTED GENERATION PROJECT MANAGER Work Phone: Start: 44-76-5913PJHDN METABOLIC PANEL W/ REFLEX TO MG FOR LOW Ethan Tristan DOCUMENT CLERK - DISTRIBUTED GENERATION PROJECT MANAGER Work Phone: Start: 55-00-2871Huaxn count complete auto&auto difrntl wbcOliva Tristan DOCUMENT CLERK - DISTRIBUTED GENERATION PROJECT MANAGER Work Phone: Start: 63-27-3441Edehwobrut exam chest 2 viewsOliva Tristan DOCUMENT CLERK - DISTRIBUTED GENERATION PROJECT MANAGER Work Phone: Start: 17-45-5954ESMGGQU, BLOOD 1Shircristian Tristan DOCUMENT CLERK - DISTRIBUTED GENERATION PROJECT MANAGER Work Phone: Start: 35-39-0942VKUTP-19, RAPIDShircristian Tristan DOCUMENT CLERK - DISTRIBUTED GENERATION PROJECT MANAGER Work Phone: Start: 06-63-5834Uo thorax w/contrast materialJoshua Grund DOCUMENT CLERK - DISTRIBUTED GENERATION PROJECT MANAGER Work Phone: Start: 70-63-6675Tnadtjabhz microscopic onlyOliva Tristan DOCUMENT CLERK - DISTRIBUTED GENERATION PROJECT MANAGER Work Phone: Start: 10-69-8140Sqela dip stick/tablet rgnt auto w/o microscopyOliva Tristan DOCUMENT CLERK - DISTRIBUTED GENERATION PROJECT MANAGER Work Phone: Start: 74-63-3564HSEXQUK, SEPSISJoshua Baciliound DOCUMENT CLERK - DISTRIBUTED GENERATION PROJECT MANAGER Work Phone: Start: 18-35-6072Frq-scan xtr veins complete bilateral studyJoshua Grund DOCUMENT CLERK - DISTRIBUTED GENERATION PROJECT MANAGER Work Phone: Start: 29-37-9730Szofy metabolic panel calcium total Harish Sebastian DO Work Phone: Start: 15-00-3624QDAPE TO COMPREHENSIVE UPGRADE Harish Sebastian DO Work Phone: Start: 62-70-4796K-reactive proteinJoshua Analilia DOCUMENT CLERK - DISTRIBUTED GENERATION PROJECT MANAGER Work Phone: Start: 62-68-1069Mscehuboby exam chest single view Harish Sebastian DO Work Phone: Start: 21-56-2069Bwu routine ecg w/least 12 lds i&r onlyAlexaconsuelo Sebastian DO Work Phone: Start: 02-09-2021 End: 26-87-1362Borvc sacrum & coccyx minimum 2 viewsStevernestina Marie Sahra PA-C Work Phone: Start: 15-76-9227Ogpkxyfhil exam chest single view Zach Marie Sahra PA-C Work Phone: Start: 06-25-5264Uo cervical spine w/o contrast materialSteven D Sahra PA-C Work Phone: Start: 93-71-5159Ro head/brain w/o contrast material Zach Marie Sahra PA-C Work Phone: Start: 87-03-2678Obfyrkajewn timeSteven D Sahra PA-C Work Phone: Start: 97-57-5404Usx routine ecg w/least 12 lds w/i&r Zach Marie Sahra PA-C Work Phone: Start: 18-33-2397Ss abdomen & pelvis w/o contrast materialChristina R Munoz DO Work Phone: Start: 93-22-6574Nydgm of lactateChristina R Munoz DO Work Phone: Start: 76-99-8784CJKFS-19, RAPIDChristina R Munoz DO Work Phone: Start: 92-59-8972Cgc routine ecg w/least 12 lds w/i&r Albert Andes DO Work Phone: Start: 73-52-8443Zzxpl of magnesiumJustin Andes DO Work Phone: Start: 86-96-6446VMTRU METABOLIC PANEL W/ REFLEX TO MG FOR LOW KJustin Andes DO Work Phone: Start: 01-12-2021 End: 90-90-3668Yxxqm spine thoracic 2 viewsJustin Andes DO Work Phone: Start: 37-58-5882Kwfgnyfqwm exam chest single view Albert Andes DO Work Phone: Start: 06-85-6765At head/brain w/o contrast material Albert Andes DO Work Phone: Start: 32-55-3341Accpwilvrw microscopic onlyMukesh Marley MD Work Phone: Start: 01-45-0229Tjrfk dip stick/tablet rgnt auto w/o microscopyMukesh Marley MD Work Phone: Start: 73-79-7275Zo abdomen & pelvis w/contrast materialMukesh Marley MD Work Phone: Start: 43-29-5860Xmpfcjwvvtlyd metabolic panelMukesh Marley MD Work Phone: Start: 95-81-9416Vipvpys tobacco smokerAijuanito Nagy Work Phone: Start: 21-55-0369Vsxz bld gluc mntr dev cleared fda spec home useAimeki Nagy Work Phone: Start: 11-32-7625Blswfjkncu glycosylated k2fMxnko Cotten Work Phone: Start: 29-46-2455Mzpvnchebdxfx w/patient 30 minutes Leah Short Work Phone: Start: 45-60-3693Ln lumbar spine w/o contrast material Marita Munoz Work Phone: Start: 17-10-8355Bq thoracic spine w/o contrast materialMarita Munoz Work Phone: Start: 94-43-3080Whsxv of troponin quantitativeFredy Billingsley Work Phone: Start: 62-72-0290Hengr of troponin quantitativeFredy Bililngsley Work Phone: Start: 67-48-3847Yjmto count complete auto&auto difrntl wbcJosallie Billingsley Work Phone: Start: 91-46-0697Davzmfwqkqk peptideJosallie Billingsley Work Phone: Start: 94-71-6280Xbdmnkblhxa timeJosallie Billingsley Work Phone: Start: 74-87-5861Qlhxxmrvpuxpp rate rbc automated Fredy Billingsley Work Phone: Start: 20-27-3744Cxdyouvtrjujva time partial plasma/whole bloodFredy Billingsley Work Phone: Start: 84-83-3249Dnjylwsdfi exam chest 2 viewsFredy Billingsley Work Phone: Start: 38-84-4187Rgvou hip unilateral with pelvis 2-3 viewsFredy Billingsley Work Phone: Start: 12-18-9396Dda routine ecg w/least 12 lds w/i&r Deion Loaiza Work Phone: start: 61-60-8541Sxpvqse blood reagent stripCommunity [facility] Work Phone: Start: 38-55-6753Knfzyrn blood reagent stripCommunity Hospital Work Phone: Start: 46-96-0559Wmqng count complete auto&auto difrntl wbcMa'En Al-Dabbas Work Phone: Start: 70-96-0467Pihtv count complete automatedMa'En Al-Dabbas Work Phone: Start: 31-94-1682Ufovwdw blood reagent stripB[facility] Hospitaler [facility] Work Phone: Start: 39-76-2950Ppsnueu blood reagent stripBanner Heart Hospitaler [facility] Work Phone: Start: 57-09-1714FLYO LAB REPORTHpf ScanningStart: 97-38-2545Mhtdqmznzrqvwgk and angiography procedure details panelHemrd Martinez Work Phone: Start: 78-94-7982JVFHG METABOLIC PANEL W/ REFLEX TO MG FOR LOW Lei F O Ahmad Work Phone: Start: 28-39-7243Zrtcr count complete automatedAli F O Ahmad Work Phone: Start: 79-79-7650Lrxer of troponin quantitativeAli F O Ahmad Work Phone: Start: 27-35-7958Oktqj of troponin quantitativeAli F O Ahmad Work Phone: Start: 08-75-7117Cduqkqfulojnzoq and angiography procedure details Warren Stephens Work Phone: Start: 72-79-9263Ijmanwcblz exam chest single view Petaca Fatuma Work Phone: Start: 94-31-8589Lvu routine ecg w/least 12 lds w/i&r Petaca Fatuma Work Phone: Start: 51-52-6291Jydyb of troponin quantitativeSentara Leigh Hospital Work Phone: Start: 30-59-7720Rsnbr count complete automatedSentara Leigh Hospital Work Phone: Start: 36-94-1821Rsfulorjehbbc metabolic panelSentara Leigh Hospital Work Phone: Start: 50-17-2577Pwbcyneffsq peptideSentara Leigh Hospital Work Phone: Start: 67-16-3668Xovsuiowke exam chest single viewEtan E Eitches Work Phone: Start: 55-80-7341Snype of troponin quantitativeEtan E Eitches Work Phone: Start: 39-67-3588Odlec metabolic panel calcium total Mukesh E Eitches Work Phone: Start: 80-30-7601Hytht count complete auto&auto difrntl wbcEtan E Eitches Work Phone: Start: 69-37-7540Yrmkqqutckt peptideEtan E Ayaka Work Phone: Start: 86-78-5443Luj routine ecg w/least 12 lds w/i&r Mukesh E Ayaka Work Phone: Start: 00-63-5162Udcev hips bilateral with pelvis 3-4 viewsDeion Loaiza Work Phone: start: 35-64-4833Cqhwctpkqd microscopic onlyDeion Loaiza Work Phone: start: 71-25-7948Zihtu dip stick/tablet rgnt auto w/o microscopyDeion Loaiza Work Phone: start: 36-67-5560Ooscdis tobacco smokerVahid Nagy Work Phone: Start: 68-73-7383Rhzyc bp <80 mm hgjuanito Nagy Work Phone: Start: 89-14-7437Dgus test prsmv read direct optical obs pr dateVahid Nagy Work Phone: Start: 41-24-3565Vxhtozhgzbgdo w/patient 30 minutes Leah Short Work Phone: Start: 16-52-1130Zf tobacco screen rcvd tlkAjoelle Nagy Work Phone: Start: 62-17-8581Jffn bp lt 130 mm hgjuanito Nagy Work Phone: Start: 32-57-7133Zdhaf of thyroid stimulating hormone tshVahid Nagy Work Phone: Start: 29-63-3425Fpbve count complete auto&auto difrntl wbcAijuanito Nagy Work Phone: Start: 35-31-1692Dpywemdzjsysy metabolic panelVahid Nagy Work Phone: Start: 83-83-9135Xiyoa panelVahid Nagy Work Phone: Start: 53-35-2932Lpgcygnlyi microscopic onlyAimee M Angelita Work Phone: Start: 68-18-1767Vsdyp dip stick/tablet rgnt auto w/o microscopyAijuanito Nagy Work Phone: Start: 55-99-2462Qqon bld gluc mntr dev cleared fda spec home useAimeki Nagy Work Phone: Start: 53-31-7432Yzxse dip stick/tablet rgnt non-auto w/o micrscpAimee Angelita Work Phone: Start: 56-67-2575Miivw bp 80-89 mm hgShawna Holliday Work Phone: start: 72-57-5098Imcntexkjgwpw w/patient 30 minutes Nitza Mark Work Phone: Start: 57-16-0151Gn tobacco screen rcvd tlkKara Mg Work Phone: Start: 50-89-9054Eteg bp ge 130 - 139mm hgShawna Holliday Work Phone: Start: 79-96-2463Uniwo of troponin quantitativeSyed A Check Work Phone: Start: 34-62-8187Mejks of lipaseSyed A Check Work Phone: Start: 14-23-6810Vvdaq of troponin quantitativeSyed A Fish Work Phone: Start: 53-40-0658Hjflbktyyufkf metabolic panelSyed A Fish Work Phone: Start: 93-46-0910Dnplamdbpe exam chest 2 viewsSyed A Fish Work Phone: Start: 26-06-1453Ls head/brain w/o contrast material Wesly A Check Work Phone: Start: 35-94-2638Pczpp of ammoniaSyed A Check Work Phone: Start: 06-94-6894Yvhdx count complete auto&auto difrntl wbcSyed A Fish Work Phone: Start: 23-72-5598KWFPMTKC REJECTIONSyed A Fish Work Phone: Start: 29-94-5410Bd thorax w/contrast materialMichael L FitzpatrickStart: 15-20-5568Ddvoq dip stick/tablet reagent auto microscopy Nia Naranjo FithillarypatrickStart: 95-75-8517STUKJ GAS, ARTERIALMichael L Carey Start: 82-28-4601ZEJCO-19Michael L FitzpatrickStart: 07-06-8164Mih routine ecg w/least 12 lds w/i&rMichael L FitzpatrickStart: 76-63-3234Ofgwdkzbvm exam chest single viewMichael L FitzpatrickStart: 73-71-1155Iumtn of troponin quantitative Nia Naranjo MohanpatrickStart: 95-78-0845Osktp metabolic panel calcium totalMichael L FitzpatrickStart: 53-11-5133Gacjy count complete auto&auto difrntl wbcMichael L FitzpatrickStart: 75-02-7891Gzpiiu dgradj products d-dimer quantitative Nia Naranjo MohanpatrickStart: 69-97-0062VKALVHV, SEPSISMichael L FitzpatrickStart: 40-70-7442Lfmbvklgtup peptideMichael L FitzpatrickStart: 07-48-0721GZZKFOJTBD CARBON MONOXIDEMichael L FitzpatrickStart: 85-39-3711CVNZS-19Luis E Bobby Work Phone: Start: 29-05-0516Mkdfive tobacco smokerShawna Holliday Work Phone: Start: 82-62-7413Limnw bp <80 mm hgShawna Holliday Work Phone: Start: 85-87-8831Kpfo bld gluc mntr dev cleared fda spec home useShawna Holliday Work Phone: Start: 20-59-6983Viftnjotmt glycosylated f1oVkskShawna Holliday Work Phone: Start: 81-68-8895Deoyzviiqmyjr w/patient 30 minutes Leah Short Work Phone: start: 97-32-9380Kd tobacco screen rcvd tlJesusita Holliday Work Phone: Start: 62-58-6777Dbve bp lt 130 mm hgShawna Holliday Work Phone: Start: 71-45-1427Trbky metabolic panel calcium total Ali F O Ahmad Work Phone: Start: 30-09-4466Vrvsb count complete automatedAli F O Ahmad Work Phone: Start: 10-52-9440DNEOG-19Luis E Bobby Work Phone: Start: 91-43-3360Hwulpyncxykpn w/patient 30 minutes Leah Short Work Phone: Start: 95-86-1005Zjug tthrc r-t 2d w/wom-mode compl spec&colr Claire F O Ahmad Work Phone: Start: 68-16-8732Hcntqxsldhcdb w/patient 30 minutes Leah Short Work Phone: start: 51-63-4853Ajmwvgq blood reagent stripJames A Deb Work Phone: Start: 68-02-1150Icqsmal blood reagent stripJames A Deb Work Phone: Start: 82-84-1606Yrztk of magnesiumEbere Harish Work Phone: Start: 95-29-1640CHSTO METABOLIC PANEL W/ REFLEX TO MG FOR LOW KEbere Harish Work Phone: Start: 94-25-2893Ficwjyf blood reagent stripJames A Deb Work Phone: Start: 97-86-3336Jmzfnhj blood reagent stripJames A Deb Work Phone: Start: 70-30-3114Wqbwckg blood reagent stripJames A Deb Work Phone: start: 67-96-3775Jjkzgit blood reagent stripJames A Deb Work Phone: Start: 00-84-3244Hsghp count complete auto&auto difrntl wbcEbere Harish Work Phone: Start: 23-82-1022Uevbdkf blood reagent stripJames A Deb Work Phone: Start: 61-95-4264Elcawbj blood reagent stripJames A Deb Work Phone: Start: 78-17-5973Fcajgcc blood reagent stripJames A Deb Work Phone: start: 53-29-7877ZGHNP METABOLIC PANEL W/ REFLEX TO MG FOR LOW KSrinivas Antonio Work Phone: Start: 34-90-5459Mlogjof blood reagent stripJames A Deb Work Phone: Start: 12-11-3535Vhfdvex blood reagent stripJames A Deb Work Phone: Start: 57-50-9490GLQIANEGWRGnimawff Antonio Work Phone: start: 42-74-1527Vcmoyap blood reagent stripJames A Deb Work Phone: start: 01-69-8287TLZAN METABOLIC PANEL W/ REFLEX TO MG FOR LOW KSrinivas Antonio Work Phone: Start: 41-41-2873Ptcpx count complete auto&auto difrntl wbcSrinivas Antonio Work Phone: Start: 11-61-8644Yytpvja blood reagent stripJames A Deb Work Phone: start: 90-55-0611Swzdefr blood reagent stripJames A Deb Work Phone: start: 70-15-9717Zodmm count hemoglobinRathnavali Antonio Work Phone: Start: 17-61-7277Ieatxuo blood reagent stripJames A Deb Work Phone: start: 45-87-9397Qeosduj blood reagent stripJames A Deb Work Phone: Start: 40-10-2951EDURA METABOLIC PANEL W/ REFLEX TO MG FOR LOW KJames A Deb Work Phone: Start: 74-43-1975Plpum count complete auto&auto difrntl wbcJames A Deb Work Phone: Start: 42-06-4730Uvxubqq blood reagent stripJames A Deb Work Phone: Start: 35-08-7792Ktlthgj blood reagent stripJames A Deb Work Phone: Start: 73-47-0043Vcgxerh blood reagent stripJames A Deb Work Phone: Start: 27-43-8930Efd routine ecg w/least 12 lds i&r onlyAstrid Ross Work Phone: Start: 53-70-6718GSM REPORTHpf ScanningStart: 43-94-1019Jsmyhwq blood reagent stripJames A Deb Work Phone: Start: 37-52-5041Vhooguoq mycoplsmRathnavali Antonio Work Phone: Start: 68-65-3586Znywc s aureus methicillin resist amp probe tqLuis E Bobby Work Phone: Start: 00-86-4177Xhhstys blood reagent stripJames A Deb Work Phone: Start: 53-62-2872Whxpm of triglyceridesRatika Aryan Work Phone: Start: 28-91-6545WYFLN METABOLIC PANEL W/ REFLEX TO MG FOR LOW KJames A Deb Work Phone: Start: 72-80-3765Ijltd count complete auto&auto difrntl wbcJames A Deb Work Phone: Start: 40-03-5212Idqwkte blood reagent stripJames A Deb Work Phone: Start: 11-59-9874Busrgfn blood reagent stripJames A Deb Work Phone: Start: 45-60-9449Zrpvuzy blood reagent stripJames A Deb Work Phone: Start: 69-81-6752Adiql respiratry probe & rev trnscr 12-25 targetVinod Kim Work Phone: Start: 36-43-5254WAGJY-19Vinod Kim Work Phone: Start: 07-02-6144Pqb routine ecg w/least 12 lds i&r onlyRatika Aryan Work Phone: Start: 86-11-8269GKL REPORTHpf ScanningStart: 05-07-2309Zryan of lactateJames A Deb Work Phone: Start: 04-29-9616Nkrub of thyroid stimulating hormone tshJames A Deb Work Phone: Start: 67-06-9804PMRAH METABOLIC PANEL W/ REFLEX TO MG FOR LOW KJames A Deb Work Phone: Start: 12-29-7163Avcbw count complete auto&auto difrntl wbcJames A Deb Work Phone: Start: 40-93-6993R-reactive proteinJames A Deb Work Phone: Start: 99-90-4942Kicjxao blood reagent stripJames A Deb Work Phone: Start: 23-96-9891Ojrubmw blood reagent stripJames A Deb Work Phone: Start: 48-92-0781Auxxezgdys microscopic onlyRatika Aryan Work Phone: Start: 68-75-2641Lgwxw dip stick/tablet rgnt auto w/o microscopyRatika Aryan Work Phone: Start: 16-58-8706Jaeyjvm blood reagent stripJames A Deb Work Phone: Start: 29-48-3267LWDVYTO, BLOOD 1Ratika Aryan Work Phone: Start: 17-18-7276Nczbuxtewm exam abdomen 1 viewBrendan Hum Work Phone: Start: 85-88-4900Sashhac blood reagent stripJajordan Lane Deb Work Phone: Start: 12-62-8192Bfldlgfxli exam chest single view Ratidemarcus Aryan Work Phone: [phone]: 93-24-8993UFGGLOLH BLOOD GAS, POCJajordan A Deb Work Phone: Start: 69-17-4955Bmur bld gluc mntr dev cleared fda spec home useJames A Deb Work Phone: Start: 20-83-8758Lmwwynl bacterial blood aerobic w/id isolatesRatika Aryan Work Phone: Start: 83-67-6198Laoor of ferritinRatika Aryan Work Phone: Start: 69-47-4650Nncmm of magnesiumRatika Aryan Work Phone: Start: 69-49-1024Irarr of troponin quantitativeRatika Aryan Work Phone: [phone]: 50-12-3260MKPAU METABOLIC PANEL W/ REFLEX TO MG FOR LOW KRatika Aryan Work Phone: Start: 77-96-0586Wqtqdxo ionizedRatika Aryan Work Phone: Start: 12-85-5737Qyddzz bodies serum quantitative Ratika Aryan Work Phone: Start: 20-41-0758Rndooew dehydrogenase ldhRatika Aryan Work Phone: [phone]: 45-57-5118WIQOVTTY BLOOD GAS, POCJajordan A Deb Work Phone: Start: 06-76-2158Lpvu bld gluc mntr dev cleared fda spec home useJajordan A Deb Work Phone: Start: 38-96-0892DKEMMPTELHYahbfh Aryan Work Phone: Start: 08-37-3377OJANR GAP (CALC) POCChago Boyd Work Phone: Start: 09-42-1146Sqscz count hemoglobinJajordan Lane Deb Work Phone: Start: 58-25-6688MIRPBWK, IONIC (POC)Chago Lane Deb Work Phone: Start: 83-48-7571Gzhayyrt [Moles/Vol]Chago Lane Deb Work Phone: Start: 68-87-4392SERFCWGBXZ W/GFR POINT OF CAREChago Cherrya Work Phone: Start: 95-53-8355Telr bld gluc mntr dev cleared fda spec home useChago Lane Deb Work Phone: Start: 12-17-3566XGEFEA ACID,POINT OF CAREChago A Deb Work Phone: Start: 04-80-2383EEJTP VENOUS GAS, POINT OF CAREChago Lane Deb Work Phone: Start: 95-24-1144IFZYGKNPSKMC PANEL, POCChago Lane Deb Work Phone: Start: 68-43-2242Renjovqzt [Moles/Vol]Chago Lane Deb Work Phone: Start: 49-47-1139Ryjmlx [Moles/Vol]Chago Lane Deb Work Phone: Start: 78-72-4154Rjtzs s aureus methicillin resist amp probe tqLuis E Bobby Work Phone: Start: 26-71-6416Iqgj ia mult step method nos each organismRatika Aryan Work Phone: Start: 13-68-8839FJTXL PNEUMONIAE ANTIGENRatika Aryan Work Phone: Start: 80-09-7683Lobsibj blood reagent stripChago Lane Deb Work Phone: Start: 33-71-8665YAUBTYTBAJU CARE EVALUATION ONLY Ratika Aryan Work Phone: Start: 31-76-8826Qm thorax w/contrast materialSyed A Fish Work Phone: Start: 60-63-3756Crtt screen class list aTyler MobileIron Work Phone: Start: 02-10-7436Tljdezconz microscopic onlyTyler [employer] Work Phone: Start: 80-00-7151Lrzfm dip stick/tablet rgnt auto w/o microscopyTyler Mobile[employer] Work Phone: Start: 1959Lrlvr of ammoniaTyler Mobile[employer] Work Phone: Start: 08-76-0676OJSGYQ/HUMIDIFIED HIGH FLOW NASAL CANNULASyed A Fish Work Phone: Start: 09-04-1259Hvf routine ecg w/least 12 lds w/i&r Luis [employer] Work Phone: Start: 03-25-2834Slsuvkhfrd exam chest single view Luis [employer] Work Phone: Start: 85-77-7393KHXKE GAS, ARTERIALTyler Mobile[employer] Work Phone: Start: 14-44-1153Ji head/brain w/o contrast material Luis [employer] Work Phone: Start: 94-84-9714Hkzls of ethanolTyler MobileIron Work Phone: Start: 12-21-4083Mrncx of troponin quantitativeTyler [employer] Work Phone: Start: 07-71-2177Naecu count complete auto&auto difrntl wbcTyler [employer] Work Phone: Start: 39-21-7422Pvwcwwlk kinase totalTyler Mobile[employer] Work Phone: Start: 81-28-3130Krkmac dgradj products d-dimer quantitativeTyler [employer] Work Phone: Start: 14-66-4101Gvkhjzerjfp peptideTyler [employer] Work Phone: Start: 79-65-3539Zeolmbvbcze timeTyler Mobile[employer] Work Phone: Start: 75-54-6360Zcmwiwq gave verbal consent for telehealthjuanito Rowlandtart: 68-35-5667PZGVL CANNULA OXYGENEtan E Eicas Work Phone: Start: 40-52-8625Fuamc of troponin quantitativeWiadalidwinter Foley Work Phone: Start: 66-60-6745Pkmnt count complete auto&auto difrntl wbcWisuryarashida Foley Work Phone: Start: 75-72-0349Jjrcyfjbvgyio metabolic panelWisuryarashida Foley Work Phone: Start: 56-25-9386Laf routine ecg w/least 12 lds w/i&r Ab Ariana Foley Work Phone: Start: 18-59-7843Olmdk hand minimum 3 viewsTyler Emily Work Phone: Start: 04-54-1321Bwqws bp 80-89 mm hgVahid Nagy Work Phone: Start: 35-79-6802Ki tobacco screen rcvd tlkAjoelle Nagy Work Phone: Start: 86-21-3619Urzf bp >/= 140 mm hgVahid Nagy Work Phone: Start: 26-11-2002PDPKKBK, WHOLE BLOODMark Albert De Santiago MD Work Phone: Start: 56-83-5671SCJZLFR, WHOLE BLOODMark Albert De Santiago MD Work Phone: Start: 93-49-1348Idjiu metabolic panel calcium total Ziggy Smith MD Work Phone: Start: 17-42-5188DBXZFVC, WHOLE BLOODMark Albert De Santiago MD Work Phone: Start: 32-65-9438SIDUQYG, WHOLE BLOODMark Albert De Santiago MD Work Phone: Start: 46-99-0988Adsvs s aureus methicillin resist amp probe tqMark Albert De Santiago MD Work Phone: start: 87-26-5751YENXOMA, WHOLE BLOODMark Albert De Santiago MD Work Phone: Start: 00-68-3129MROVZNL, WHOLE BLOODMark Albert De Santiago MD Work Phone: Start: 41-68-7736Tfutn metabolic panel calcium total Ziggy Smith MD Work Phone: Start: 13-86-4470YDGULJZ, WHOLE BLOODMark Albert De Santiago MD Work Phone: Start: 73-04-7904SJVRNPG, WHOLE BLOODMark Albert De Santiago MD Work Phone: Start: 22-68-1695BBFZTSO, WHOLE BLOODMark Albert De Santiago MD Work Phone: Start: 64-67-3164Maxqo metabolic panel calcium total Ziggy Smith MD Work Phone: Start: 73-83-9954UBWDPLO, WHOLE BLOODMark Albert De Santiago MD Work Phone: Start: 47-88-5263ZAWTA GAS, ARTERIALChristopher Cynthia Smith MD Work Phone: Start: 64-62-2913Ysbpe of lactateOliva Tristan DOCUMENT CLERK - DISTRIBUTED GENERATION PROJECT MANAGER Work Phone: Start: 14-11-1680KBJGUDJ, WHOLE BLOODMark Albert De Santiago MD Work Phone: Start: 04-22-2019 End: 85-83-3854KRZSK GAS, ARTERIALChristopher Cynthia Smith MD Work Phone: Start: 86-59-7831Qchjqrizzjuvw metabolic panelMark Albert De Santiago MD Work Phone: Start: 64-65-0662Hzfwwpg bacterial quanttative colony count urineSyaj Whitten MD Work Phone: Start: 18-97-0984Xutaz dip stick/tablet rgnt auto w/o microscopySyaj Whitten MD Work Phone: Start: 33-87-9545KDK CLINICAL BEDSIDE SWALLOW EVALUATION & TREATMENTMark Albert De Santiago MD Work Phone: Start: 15-90-5668Kqqozjx bacterial blood aerobic w/id isolatesSyed Ariana Whitten MD Work Phone: Start: 59-92-1680Oh thorax w/contrast materialJustin Andes DO Work Phone: Start: 81-22-9808ZZCQN METABOLIC PANEL W/ REFLEX TO MG FOR LOW KJustin Andes DO Work Phone: Start: 10-12-5926Piwvnrq bacterial blood aerobic w/id isolatesSyed Ariana Whitten MD Work Phone: Start: 88-48-2760Elrylyn function panelSyed Ariana Whitten MD Work Phone: Start: 40-94-8103Khxlbqa [Moles/volume] in Serum or PlasmaJustin Andes DO Work Phone: Start: 97-71-9359Ezaewkrwkbs timeSyed Ariana Whitten MD Work Phone: Start: 43-15-6000Citttsdvlm exam chest 2 viewsJustin Andes DO Work Phone: Start: 79-92-8542Gfslr bp >/= 90 mm hgAijuanito Nagy Work Phone: start: 14-04-3920Dygl test prsmv read direct optical obs pr dateVahid Nagy Work Phone: Start: 62-45-3024Ovdcghzbqqjwf w/patient 30 minutes Zach Grimaldo Work Phone: Start: 67-59-8655Luxq bp lt 130 mm hgAijuanito Nagy Work Phone: start: 54-82-0909Kb head/brain w/o contrast material Harish Sebastian DO Work Phone: Start: 40-74-4573Kb angiography neck w/contrast/noncontrastAlexseth Sebastian DO Work Phone: Start: 05-56-6743Xmfad of troponin quantitative Harish Sebastian DO Work Phone: Start: 22-77-9332DFGQF METABOLIC PANEL W/ REFLEX TO MG FOR LOW KAlexander Ariana Viveraetaran DO Work Phone: Start: 87-32-4676Xsr routine ecg w/least 12 lds w/i&r Harish Sebastian DO Work Phone: Start: 04-12-2019 End: 91-10-1534Yotwi spine cervical 2 or 3 viewsAlexander Ariana ViveraejanieGhostery DO Work Phone: Start: 40-77-4210Ipnvn bp >/= 90 mm hgAimee Angelita Work Phone: start: 38-22-1078Yjsh bp >/= 140 mm hgAimee [facility] Work Phone: start: 61-58-9074Diqaq bp 80-89 mm hgCassie King Work Phone: Start: 98-70-6029Fpjs bp ge 130 - 139mm hgCassie King Work Phone: start: 15-75-3933Itohe dip stick/tablet reagent auto microscopyMichael Oertly Work Phone: Start: 84-47-4332Egu abdl aorta&bi iliofem w/contrast&postpMichael Oertly Work Phone: Start: 18-47-4194Fvaom of lipaseMichael Oertly Work Phone: Start: 55-16-9172Alvwd of troponin quantitativeMichael Oertly Work Phone: Start: 34-97-0490Rywhn count complete auto&auto difrntl wbcMichael Oertly Work Phone: Start: 07-42-2421Qammdqzlskjrb metabolic panelMichael Oertly Work Phone: Start: 25-62-8074Eytncdkuvxi timeMichael Oertly Work Phone: Start: 26-41-5263Gef spinal canal lumbar w/o contrast materialMelcarlos Fritz Work Phone: Start: 43-57-1932Ronlb bp <80 mm hgVahid Nagy Work Phone: start: 49-08-5785Sgzf test prsmv read direct optical obs pr dateVahid Nagy Work Phone: Start: 41-81-0961VOLYZEDBNJQY (SYSTEMIC)Vahid Nagy Start: 58-88-2956Foorkljbdyaid w/patient 30 minutesStevernestina Grimaldo Work Phone: Start: 09-45-1084Gprg bp ge 130 - 139mm hgVahid Nagy Work Phone: start: 54-44-8555Axmj test prsmv read direct optical obs pr dateLee Karla Bryan Work Phone: Start: 55-56-9711Cppvkqd of influenza vaccinationAijuanito Rowlandtart: 16-44-7083Uadzb of troponin quantitativeJames P Kian Work Phone: Start: 64-42-9663Ewwek spine cervical 2 or 3 views Chago Langston Work Phone: Start: 69-28-9532Uklmk spine lumbosacral 2/3 views Chago Langston Work Phone: Start: 16-80-0202Vvupf shoulder complete minimum 2 viewsJames P Kian Work Phone: Start: 87-58-1146Xunfnwcojh exam chest 2 viewsJames P Ikan Work Phone: Start: 04-86-3042Msm routine ecg w/least 12 lds w/i&r Chago Langston Work Phone: Start: 65-89-9018Tkuou of troponin quantitativeJames P Kian Work Phone: Start: 03-42-8482ODJCF METABOLIC PANEL W/ REFLEX TO MG FOR LOW KJames P Kian Work Phone: Start: 33-87-2415Zxqou count complete auto&auto difrntl wbcJames P Kian Work Phone: Start: 36-99-1431Kpcrn dip stick/tablet rgnt auto w/o microscopyJames P Kian Work Phone: Start: 01-59-3589Xmwqq shoulder complete minimum 2 viewsCassie L King Work Phone: Start: 80-15-6989Zzwda bp <80 mm hgCassie King Work Phone: start: 19-26-1273Ynkbqfptxz glycosylated r2nFkydqc King Work Phone: Start: 48-92-8158Lehziaiul tromethamine injCassie King Work Phone: Start: 44-15-1060Qg-focused hlth risk assmt score doc stnd instrmCassie King Work Phone: Start: 78-35-5346Lynz bp lt 130 mm hgCassie King Work Phone: Start: 08-45-5796Nnwutwlwutq prophylactic/dx injection subq/imCassie King Work Phone: Start: 78-96-7010Ziqjt bp 80-89 mm hgAimee Angelita Work Phone: Start: 23-54-4159Xdpq test prsmv read direct optical obs pr dateVahid Nagy Work Phone: Start: 56-97-9522Tnmq bp ge 130 - 139mm hgAimee Angelita Work Phone: Start: 69-94-9501Petzg bp <80 mm hgAimee Angelita Work Phone: Start: 33-60-6976Gjbv test prsmv read direct optical obs pr dateAijuanito Nagy Work Phone: Start: 82-75-4602Wqevjyscvyerm w/patient 30 minutes Zach Grimaldo Work Phone: Start: 01-36-5523Caub bp >/= 140 mm hgAijuanito Nagy Work Phone: Start: 65-11-1759Vpykz dip stick/tablet rgnt non-auto w/o micrscpAjoelle Nagy Work Phone: Start: 90-05-3627Tfymr occult fecal hgb deter ia qual feces 1-3Aimee Angelita Work Phone: Start: 33-16-6641Qkkqa bp 80-89 mm hgAimee Angelita Work Phone: Start: 47-10-4004Azdq bld gluc mntr dev cleared fda spec home useVahid Nagy Work Phone: [phone]: 77-27-9220Udwdmpdrtd glycosylated d4vDohahjuanito Nagy Work Phone: [phone]: 25-46-6086Kwio bp >/= 140 mm hgAtrium Health Kannapoliski Nagy Work Phone: Start: 80-69-5167AKYZTTKU MELLITUSAiide DaniellaSaint Joseph's Hospitaltart: 13-89-4744Aurzu bp <80 mm hgAtrium Health Kannapoliski Nagy Work Phone: Start: 54-53-3851Mdux test prsmv read direct optical obs pr Veronica Nagy Work Phone: Start: 95-27-7723Kdxj bld gluc mntr dev cleared fda spec home useVahid Nagy Work Phone: Start: 04-80-2726Qsfmloqcme glycosylated q3cSiupbjuanito Nagy Work Phone: Start: 17-69-2202Upuzagttshzvq w/patient 30 minutes Zach Grimaldo Work Phone: Start: 75-62-4563Nqox bp lt 130 mm hgjuanito Nagy Work Phone: Start: 56-74-8824Iwok test prsmv read direct optical obs pr Veronica Nagy Work Phone: Start: 01-52-8407ejxczpht hospitalizationsjuanito Nagy Start: 92-68-5457Ibbs test prsmv read direct optical obs pr Veronica Nagy Work Phone: start: 05-46-4811AdfeiifixjcrurbXsjdc [facility] Joplintart: 55-30-3447OvnwtirmdoxpdwjCazjv [facility] Joplintart: 64-46-1920Iamm test prsmv read direct optical obs pr Veronica Nagy Work Phone: start: 48-58-3909Wnev bld gluc mntr dev cleared fda spec home useAtrium Health Kannapoliski Nagy Work Phone: start: 78-06-7920Zfqhfipmrz glycosylated j4bXwykn Angelita Work Phone: start: 58-48-0235FQBHGIOLE INTERVERTEBRAL DISCAiSelma Community Hospitaltart: 20-59-5508WkozvwwuqljpQexay CottenStart: 85-70-3529PIQKPFQAOBGFNJ DISC DEGENERATIONSouthwestern Vermont Medical Centertart: 33-93-8716Kmu/trnsxj flp tube abdl/vag appr uni/biSouthwestern Vermont Medical Centertart: 24-42-3252Yuaighqi of fallopian tubeHca HealthcareenStart: 47-76-2483PIBVYGFEblhy CottenStart: 93-51-8559ynrp medical/surgical history [use for free text]VahidRutland Regional Medical Centertart: 94-71-1784Spulloblphcq transluminal coronary angioplastySouthwestern Vermont Medical Centertart: 82-66-7414Pvdhs abdominal hysterect w/wo rmvl tube ovaryAiSelma Community Hospitaltart: 95-53-6935Yhepj x-raySouthwestern Vermont Medical Centertart: 02-10-2018 Colorectal Screening Obtain ResultsHca Healthcaretart: 43-41-2208Abgzgwjlfq Screening Results in ChartHca Healthcaretart: 01-20-2018 End: 93-28-5108Gwfxnbrhpu qual/semiquant except immunoassaysAimeCopley Hospitaltart: 57-96-5424OH A1C LEVEL LT 7.0%Hca Healthcaretart: 34-71-2329QssmqgqqdftucCdkmb Cotttart: 11-26-2017 End: 01-06-7389Arot bld gluc mntr dev cleared fda spec home useVahid Nagy Start: 11-26-2017 End: 82-86-9562Otqxcbuaif glycosylated q7cTzrlbjuanito Rowlandrt: 22-10-3692Biz bact xcpt urine blood/stool aerobic isoljuanito Rowlandrt: 49-43-2775Ycmzqtkd Therapy.Singh Azevedoart: 28-13-0056Cpeungptyxfsl w/patient 30 minutesStevGreene County Hospitalart: 09-11-2017 End: 57-07-3361Amvt bld gluc mntr dev cleared fda spec home useAijuanito Angelita Start: 09-11-2017 End: 80-89-7238OKP0 AdministeredStevGreene County Hospitalart: 17-74-9668ABNLQ BP >/= 90 MM HGSteGeorge Regional Hospitalart: 21-16-6103JBXU BP >/= 140 MM HGSJ.W. Ruby Memorial Hospital: 08-16-2017 End: 47-69-3292Whkd bld gluc mntr dev cleared fda spec home useVahid Angelita Start: 61-60-7159Agwf Management.Singh Galvinart: 08-06-2017 End: 88-17-4806Y-reactive proteinAiidki Rowlandrt: 08-06-2017 End: 81-95-9226Cmzfdbuejhbky metabolic panelAijuanito Rowlandrt: 08-06-2017 End: 25-85-1027Ynv bone density study 1/> sites axial skelAjoelle Rowlandrt: 08-06-2017 End: 95-11-3096Mkom bld gluc mntr dev cleared fda spec home useVahid Breweren Start: 08-06-2017 End: 76-51-7333Rkpcpenjuay analyte qual/semiqual multiple stepAimeki Rowlandtart: 08-06-2017 End: 08-73-2720Psjlt spine cervical 2 or 3 viewsAiidki Brewertart: 08-06-2017 End: 46-98-2609Qqijl spine lumbosacral 2/3 viewsAijuanito Rowlandtart: 08-06-2017 End: 41-65-5165Ckoze spine thoracic 2 viewsAijuanito Rowlandtart: 08-06-2017 End: 91-40-1853Yycxruhvrmari rate rbc automatedAijuanito Rowlandrt: 07-29-2017 End: 17-01-5062Zfso bld gluc mntr dev cleared fda spec home useAimeki Angelita Start: 07-29-2017 End: 90-03-7536Osshghxllu glycosylated t8sIcbyslCleveland Clinic Fairview Hospitalart: 02-20-2017 End: 11-27-0035Pkacwn Services Office VisitSJ.W. Ruby Memorial Hospital: 47-87-5473Mlanp spine lumbosacral 2/3 viewsAijuanito Rowlandtart: 19-97-3121DO A1C LEVEL 7.0-9.0% Zach Dillanart: 01-16-2017 End: 71-67-4110Mrfiis Services Office VisitSRoane General Hospitalart: 01-42-8919HRMLG BP <80 MM [facility]art: 58-16-0648BM A1C LEVEL 7.0-9.0%Zach Dillan Start: 09-35-2599IVIK BP LT 130 MM [facility]: 82-59-4926Lqenwdqtcs Screening Results in [facility]: 88-73-2019Lntvg of thyroid stimulating hormone tshStCleveland Clinic Fairview Hospitalart: 33-19-4938Zakgl count complete auto&auto difrntl wbcStCleveland Clinic Fairview Hospitalart: 68-74-2412Tliqhrcnzx venous blood venipunctureStCleveland Clinic Fairview Hospitalart: 12-14-2016 End: 47-82-5501Rpvwljtdjwdor metabolic panelSJ.W. Ruby Memorial Hospital: 12-14-2016 DIAST BP <80 MM [facility]art: 12-14-2016 End: 65-48-3134Rxdcvduwl c antibodyStCleveland Clinic Fairview Hospitalart: 37-78-6156ST A1C LEVEL LT 7.0%Zach Grimaldoart: 26-16-1896Ngbgx panelSJ.W. Ruby Memorial Hospital: 13-15-9390YDI9 AdministeredStCleveland Clinic Fairview Hospitalart: 63-33-5446Ykodykgzgmxgl w/patient 30 minutesStevSinging River Gulfport: 76-79-4517ISMBF NegativeSJ.W. Ruby Memorial Hospital: 62-89-6385Ziwkofzyc, Brief Intervention, Referral and Treatment Zach Dillanart: 05-51-5833UUCR BP LT 130 MM [facility]art: 12-14-2016 End: 10-52-1128SBMC EXAM PERFORMEDStCleveland Clinic Fairview Hospitalart: 12-14-2016 End: 75-55-4863Veny bld gluc mntr dev cleared fda spec home useVahid Nagy Start: 12-14-2016 End: 97-95-2879Njbgvovesf glycosylated s8hZsvdjj [facility] Hospitalart: 59-92-2167TYX4 AdministeredSternestina Dillanart: 09-17-3388Zdmcsgwoyzpwq w/patient 30 minutes Zach Dillanart: 11-87-2319FULHN Pre-Screening *NEGATIVE*Zach Grimaldo Start: 88-47-9887Tinrxyxld, Brief Intervention, Referral and Treatment (Indicate category below)Zach Dillanart: 76-99-6695Bqjjjfo cessation educationSternestina Liberty Hospitalart: 43-19-0068YvvqdialjecIuolho Iacob MD Work Phone: Start: 57-04-3986Gbcew of thyroid stimulating hormone tshSternestina Liberty Hospitalart: 20-84-2213Yafgb count complete auto&auto difrntl wbc Zach DillanStart: 07-87-7952Earglhteev venous blood venipunctureSternestina Dillanart: 03-11-2015 End: 74-99-8727Oqcvcjlmtuadj metabolic panelSRoane General Hospitalart: 36-69-0579Wpyr screen multi drug classStCleveland Clinic Fairview Hospitalart: 19-71-1758Uulhg panelSRoane General Hospitalart: 48-37-4131Omp not indicatedStCleveland Clinic Fairview Hospitalart: 53-89-1390Chxd bld gluc mntr dev cleared fda spec home useAiidki DaniellaSaint Joseph's Hospitalrt: 03-11-2015 Mammogram, screeningAiidki [facility] Hospitalrt: 65-73-0709Ewlhvvbvnj Health Coordination of Carekamillaernestina Dillanart: 02-10-2015 End: 35-48-0447Itifuytzxsv w/biopsy single/multipleSternestina Dillanart: 70-15-2532ZPO6 AdministeredThree Crosses Regional Hospital [[email or web address]]ernestina iDllanart: 46-72-6835Rwmnplvqqukyj w/patient 30 minutesSternestina Grimaldoart: 26-07-3573Zqqmhnyo to dental for routine/urgent dental care.Zach Dillanart: 64-43-9687ARIJV Pre-Screening *NEGATIVE*Zach Dillanart: 96-69-1519Psgdosw cessation educationSternestina Liberty Hospitalart: 00-61-9197Lmumyhmha, screeningAie Janettrt: 02-10-2015 End: 39-05-6635ISEQ EXAM PERFORMEDStshirley GrimaldoEmbarrass: 02-10-2015 End: 27-42-1004Ychk bld gluc mntr dev cleared fda spec home useSjeane Grimaldo Start: 02-10-2015 End: 36-07-7282Shxhyqxvik glycosylated c9dPagndq art: 02-10-2015 End: 60-94-5197OQW SCREENING *in-house*Zach GrimaldoStart: 02-10-2015 End: 80-96-8593Mijbe albumin semiquantitativeSternestina art: 02-10-2015 End: 58-59-8443Qlvyl dip stick/tablet rgnt non-auto w/o micrscpStenathalie Grimaldo History of placement of stent for coronary artery diseaseH/O heart artery stent DO Carlo Grimaldo Work Phone: NEGATED: Highlighted row has not occurred!Start: 24-88-4717rz recent change in medical historyAijuanito RedmanGATED: Highlighted row has not occurred!Start: 84-52-7260qwxjybck a history of cancerVahid Nagy NEGATED: Highlighted row has not occurred!Start: 93-10-2808yfffytwt physical traumaAimee Angelita Plan of Treatment DateCare ActivityDetailAuthorStart: 04-55-5997Fbgeaceqg for malignant neoplasm of colonRappahannock General Hospital: 26-84-5958KTvC,Tdap and Td Vaccines (3 - Td or Tdap)DTaP,Tdap and Td Vaccines (3 - Td or Tdap)[facility] Start: 26-84-9003YJcV/Tdap/Td vaccine (3 - Td or Tdap)DTaP/Tdap/Td vaccine (3 - Td or Tdap)[facility]: 69-07-0638VFMWD-19 Vaccine (#1)COVID- 19 Vaccine (#1)[facility] on above:Postponed from 03/01/1960 (Patient Refused)Start: 50-86-0351TDiU/Tdap/Td vaccine (2 - Td or Tdap)DTaP/Tdap/Td vaccine (2 - Td or Tdap)[facility]: 01-07-2027 DTaP/Tdap/Td vaccine (2 - Td)DTaP/Tdap/Td vaccine (2 - Td)[place] Start: 22-31-3306Hcdjpix vaccinationAIDAN SolorzanoMercy Health Springfield Regional Medical Centertart: 54-61-1326Vunbibz ScreeningTobacco ScreeningUNC Health Appalachiantart: 33-29-0904Dbtuo BMI ScreeningAdult BMI ScreeningUNC Health Appalachiantart: 92-16-6474CRI test (Diabetes, CKD 3-4, OR last GFR 15-59)GFR test (Diabetes, CKD 3-4, OR last GFR 15-59)Bon [facility]: 31-52-2119Ahbhgxzuwv A1c hblzphdsxiiB9H test (Diabetic or Prediabetic)Bon [facility]: 27-41-1381YTN test (Diabetes, CKD 3-4, OR last GFR 15-59)GFR test (Diabetes, CKD 3-4, OR last GFR 15-59)[facility]: 48-88-6511VQZ test (Diabetes, CKD 3-4, OR last GFR 15-59)GFR test (Diabetes, CKD 3-4, OR last GFR 15-59)Bon [facility]: 42-18-7089Iendovua foot examinationDiabetic foot examBon [facility]: 47-02-3563Uaschqiogl A1c opowfgcojzcR3Y test (Diabetic or Prediabetic)[facility]art: 52-40-5849Narefuydy for malignant neoplasm of lungLung Cancer Screening &/or CounselingBon [facility] Centerart: 23-62-4260Jrixt BMI ScreeningAdult BMI ScreeningUNC Health Appalachiantart: 31-41-2036Vodnbwr ScreeningTobacco ScreeningUNC Health [facility]alachiantart: 98-01-0863Vsokr BMI ScreeningAdult BMI ScreeningUNC Health Appalachiantart: 12-19-7718Mpaeaia ScreeningTobacco ScreeningUniversity Hospitals [facility] Start: 70-69-3480Lqgkatqqzj MonitoringDepression MonitoringBon [facility] Centerart: 06-32-5866Idddjscgwb ScreeningDepression ScreeningWayne HealthCare Main Campus SystemStart: 11-13-7878Fvnwdvv ScreeningTobacco ScreeningWayne HealthCare Main Campus System Start: 74-12-7653Sodjs BMI ScreeningAdult BMI ScreeningUniversity Hospitals Beach[facility] Start: 30-45-0932Eswto cancer screen colonoscopyColon cancer screen colonoscopy [facility], [place]Start: 89-33-0046Ynqbjmglj for malignant neoplasm of colon [facility] HospitalStart: 00-10-8749Acndz BMI ScreeningAdult BMI ScreeningWayne HealthCare Main Campus SystemStart: 56-68-4442Uuwfm BMI ScreeningAdult BMI ScreeningWayne HealthCare Main Campus SystemStart: 87-19-4166Xflkiyq ScreeningTobacco ScreeningWayne HealthCare Main Campus SystemStart: 01-14-2025 End: 28-94-9276Ffdgsil encounter xetdpqcjc94/16/2025 1:45 PM EDT Office Visit [facility] [address] [place] [phone] Zach Saravia DPM [address] [place] [address] ArrivedNOMS Dhillon PodiatryComment on above:ArrivedStart: 67-72-6885Xoaly BMI ScreeningAdult BMI ScreeningUNC Health Appalachiantart: 67-88-2238Ogtbcym ScreeningTobacco ScreeningUNC Health Appalachiantart: 12-22-2024 End: 87-66-9141Isdkkttlo yiirnklju34/23/2025 2:00 PM EDT Scheduled Telephone Encounter [facility] [address] [place] [address] [address] [place] [address] Osmar Rodriguez MD [address] [place], [place] [id number] TELEPHONE VISIT f/u [facility] Primary [facility] HospitalComment on above:TELEPHONE VISIT f/u [facility] centerStart: 23-86-8513Zbivertee vaccinationInfluenza Vaccine [facility] SystemStart: 35-53-9172FWO test (Diabetes, CKD 3-4, OR last GFR 15-59)GFR test (Diabetes, CKD 3-4, OR last GFR 15-59)[facility] Start: 06-02-0620Yfdtumfmbk A1c owqtyfwqiqxD9G test (Diabetic or Prediabetic)[facility]ITALStart: 51-68-7583Gmmpq panelLipidsBON [facility] Start: 53-09-5091Zksubndxe vaccinationBon [facility] CenterStart: 10-14-2024 End: 57-94-9173Ratzlec encounter akkostxde30/16/2025 1:45 PM EDT Office Visit [facility] [address] [place] [address] Gordo Colmenares MD [address] [place] [address] [address] [place] [address] F/U from 08/19/2024[facility] HospitalComment on above: F/U from 08/19/2024Start: 10-07-2024 End: 58-29-9724Pazorfn encounter /09/2025 1:45 PM EDT Office Visit [facility] [address] [place] [address] [address] [place], [place] [phone] Osmar Rodriguez MD [address] [place] [address] [address] [place] [address] F/u med managementFairfield Medical Center Primary CareComment on above:F/u med managementStart: 08-30-2024 Fall Risk ScreeningFall Risk ScreeningProParkwood Hospital SystemStart: 08-30-2024 Pneumococcal 0-64 years Vaccine (2 of 2 - PPSV23)Pneumococcal 0-64 years Vaccine (2 of 2 - PPSV23)[facility] HospitalStart: 93-12-4637Aipwjskjkckf 0-64 years Vaccine (3 - PPSV23 if available, else PCV20)Pneumococcal 0-64 years Vaccine (3 - PPSV23 if available, else PCV20)[facility]ITALStart: 31-80-9235Yvllahywswqq 0-64 years Vaccine (3 - PPSV23 or PCV20)Pneumococcal 0-64 years Vaccine (3 - PPSV23 or PCV20)[facility]ITALStart: 97-60-9204Tvzbhvefbouh 0-64 years Vaccine (3 of 3 - PPSV23 or PCV20)Pneumococcal 0-64 years Vaccine (3 of 3 - PPSV23 or PCV20)[facility]ITALStart: 48-68-8165ONSVFBFJFGWZ VACCINE SERIES (3 - PPSV23 if available, else PCV20)PNEUMOCOCCAL VACCINE SERIES (3 - PPSV23 if available, else PCV20)[facility] Hospitaltart: 08-24-2024 End: 64-01-9797Jrdvc metabolic 2000 panel - Serum or PlasmaBasic Metabolic Panel Lab Routine Open wound of foot excluding toes Expected: 08/24/2024, Expires: 0 08/17/2025on [facility] on above:Expected: 08/24/2024, Expires: 08/17/2025Start: 08-24-2024 End: 28-63-8190UEY W Auto Differential panel - BloodCBC with Auto Differential Lab Routine Open wound of foot excluding toes Expected: 08/24/2024, Expires: 08/17/2025on [facility] on above:Expected: 08/24/2024, Expires: 08/17/2025Start: 08-19-2024 End: 45-92-6675Fqdfphm encounter iglwidavq54/21/2025 12:45 PM EDT Office Visit [address] [place] [address] Gordo Colmenares MD [address] [place] [address] [address] [place] [address] hosp. stay, Claudications PVD, [facility] Comment on above:hosp. stay, Claudications PVD, PADStart: 08-13-2024 End: 82-60-5580Symrttf encounter pzxyrrywe23/15/2025 9:30 AM EDT Office Visit [facility] [address] [place] [address] [address] [place] [address] Osmar Rodriguez MD [address] [place] [address] [address] [place] [address] [facility] CareStart: 08-07-2024 End: 90-32-4405Sipshwll Mciqzvm2608/07/2024 10:30 AM EDT Clinical Support [facility] - Pharmacy Medication Management [address] [place] [address] AvtOacvnz [facility] - Pharmacy Medication ManagementStart: 07-24-2024 End: 70-28-1145Inzudtj encounter tnbzxyqzw42/25/2025 8:40 AM EDT Office Visit [facility] [address] [place] [address] Marquita Beard, DOCUMENT CLERK-DISTRIBUTED GENERATION PROJECT MANAGER [address] [place] [address] [facility] Wound Care ClinicStart: 04-27-2024 End: 25-99-3061Wonxzze encounter mykelqsbb78/27/2025 2:00 PM EST Office Visit [facility] [address] [place] [address] Rebeca Johnson MD [address] [place] [address] [facility] VascularStart: 90-84-9548Xakpobohgdim 50+ years Vaccine (3 of 3 - PCV20 or PCV21)Pneumococcal 50+ years Vaccine (3 of 3 - PCV20 or PCV21)[facility]Start: 04-18-2024 End: 26-60-1801Aqaixkncq to same day surgery lxuqxj3004/18/2024 10:00 AM EST - 04/18/2024 11:38 AM EST Surgery [facility] - Special Procedures [address] [place] [address] Rebeca Johnson MD [address] [place] [address] LYSIS RECHECK EXTREMITY LOWERMercy Health Anderson Hospitalca [facility] - Special ProceduresComment on above:LYSIS RECHECK EXTREMITY LOWERStart: 04-18-2024 End: 98-96-7741TKSLAIPUL EXTREMITY LOWERANGIOGRAM EXTREMITY LOWER LLE LIMB ISCHEMIA 04/18/2024 10:00 AM ESTMiddletown Hospital Health SystemStart: 04-18-2024 Subsequent hospital visit by /18/2025 10:00 AM EST Hospital Encounter [facility] Special Procedures [address] [place] [address] Rebeca Johnson MD [address] [facility], [address] [place], [place] [facility] Special ProceduresStart: 62-71-5074Mjyghglnhu MonitoringDepression MonitoringCENTRA BEDFORD MEMORIAL HOSPITALStart: 89-63-3953TjgnshoskOhio State Harding Hospitaltart: 85-22-3595Atpexdyn to vascular surgeonOhio State Harding Hospitaltart: 19-87-3172Gduxtharduvgb metabolic 2000 panel - Serum or PlasmaOhio State Harding Hospitaltart: 91-47-3935UxubvmkgrOhio State Harding Hospitaltart: 05-87-5461PqvyyijoaOhio State Harding Hospitaltart: 57-05-2319Vifuaowx to general surgeonHighland District Hospital CenterStart: 30-11-2661JvinyvywyuuyCbayqzctgOhio State Harding Hospitaltart: 37-50-1885Bgvlvcku to cardiologistHighland District Hospital CenterStart: 02-44-4096Hibylcdf admissionOhio State Harding Hospitaltart: 01-17-2024 End: 32-20-6172Vqvsuhinfopydhztwipshqizta transoral diagnostic ESOPHAGOGASTRODUODENOSCOPY DIAGNOSTIC Upper GI bleed 01/17/2024 1:47 PM EDT [facility]Start: 53-02-6658LKFOK-19 Vaccine ( season)COVID-19 Vaccine ( season)Bon [facility] CenterStart: 61-10-1737Bxnupgsvl vaccinationInfluenza VaccineProMercy Health Urbana Hospitaltart: 11-22-2023 End: 42-39-6343Hmmbyyb encounter qxbxspuvd34/23/2024 2:45 PM EDT Office Visit [facility] [address] [place] [address] [address] [place] [address] Osmar Rodriguez MD [address] [place], [place] [id number] 1 month FU/Mammogram OverdueFairfield Medical Center Primary CareComment on above:1 month FU/Mammogram Overdue Start: 11-20-2023 End: 91-16-7306Jdmyxdj encounter cvfcjuodb62/21/2024 1:30 PM EDT Office Visit [facility] PUL Part [facility] [address] [place], [place] [phone] Gwendolyn Garces MD [facility] [address] [phone] Chronic obstructive pulmonary disease, unspecified COPD type (HCC)[facility] PUL Part [facility] HospitalComment on above:Chronic obstructive pulmonary disease, unspecified COPD type (HCC)Start: 87-75-0614Yrznrvzjc vaccinationFlu vaccine (#1)[facility]: 60-52-3001Srwfisnaic ScreeningDepression ScreeningUNC Health Appalachiantart: 57-20-2445DCU test (Diabetes, CKD 3-4, OR last GFR 15-59)GFR test (Diabetes, CKD 3-4, OR last GFR 15-59)[facility]: 27-12-4920NLM test (Diabetes, CKD 3-4, OR last GFR 15-59)GFR test (Diabetes, CKD 3-4, OR last GFR 15-59)[facility]: 07-27-2023 Hemoglobin A1c tzyvjvxedjhG2I test (Diabetic or Prediabetic)[facility]: 83-14-4070Gueau panelLipidsBON [facility]: 67-20-3684Bxwlv screening for proteinBON [facility]: 04-09-2023 Depression MonitoringDepression MonitoringBON [facility] Hospitalart: 21-97-9939Xszqtpdph vaccinationFlu vaccine (Season Ended)BON [facility] Hospitalment on above:Postponed from 10/30/2022 (Patient Refused)Start: 56-97-4527Ekcoqjpv vaccine (1 of 2)Shingles vaccine (1 of 2)BON [facility] Hospitalment on above:Postponed from 08/30/2009 (Patient Refused)Start: 18-46-8532YIK test (Diabetes, CKD 3-4, OR last GFR 15-59)GFR test (Diabetes, CKD 3-4, OR last GFR 15-59)[facility]: 54-97-5373BYPLK-19 Vaccine ( season)COVID-19 Vaccine ( season)[facility]art: 09-06-2022 End: 63-12-8226Hwgytmx encounter edignehbf43/08/2023 Office Visit Primary Care Osmar Rodriguez MD [address] [place] [address] [facility] Primary CareStart: 27-51-1618Yeafw panelLipidsBON [facility]: 48-41-0998Htaenbwefb A1c dcnbyfpitpmD6J test (Diabetic or Prediabetic)[facility]art: 08-07-2022 End: 04-10-8944Eeeeoar encounter eoddctaxx47/09/2023 Office Visit Primary Care Osmar Rodriguez MD [address] [place] [address] [facility] CareStart: 08-01-2022 End: 03-46-9096Lyqcmvc encounter hrclcuhyl07/03/2023 Office Visit Cardiology Nydia Barton PA-C [address] [place] [address] [facility]tart: 07-24-2022 End: 37-21-3027Pkehnov encounter hptgwmref31/25/2023 Office Visit Cardiology Nydia Barton PA-C [address] [id number] [facility]: 35-12-4445Ahmeatkju monitoringPotassium monitoringPomerene HospitalStart: 06-08-2022 End: 88-01-5382Ywpvudtdttjj consultation with qlzhwlm4806/08/2022 Telemedicine General Surgery Corrine Chery, DOCUMENT CLERK-DISTRIBUTED GENERATION PROJECT MANAGER [address] [place], [place] [facility]: 04-33-6049Yitcrsbxpn measurementCreatinine monitoringPomerene Hospital Start: 21-70-5560Ypxsxjc stimulating hormone measurementTSH testingPomerene Hospital Start: 93-47-4572Owylvmyulb A1c rldajqljdfmX9O test (Diabetic or Prediabetic) [facility]: 46-07-4533Mcrnh screening for proteinPomerene HospitalStart: 88-48-8731Zwgbrczrlp measurementCreatinine monitoringPomerene HospitalStart: 39-54-3967Arzkkebey monitoringPotassium monitoringPomerene HospitalStart: 04-06-2022 Depression MonitoringDepression MonitoringPomerene HospitalStart: 24-20-2672Gfrrhpej foot examinationDiabetic foot examPomerene HospitalStart: 54-04-6924Rfebfipxng measurementCreatinine monitoringPomerene HospitalStart: 03-61-4239Acogdzlei monitoringPotassium monitoringPomerene HospitalStart: 03-09-8266CAAEX-19 Vaccine (#1) COVID-19 Vaccine (#1)[employer] [facility] HOSPITALComment on above:Postponed from 03/01/1960 (Patient Refused)Start: 20-49-2041Kldonuei vaccine (1 of 2)Shingles vaccine (1 of 2)BON SECHeadroom [facility]ONT[facility]ER HOSPITALComment on above:Postponed from 08/30/2009 (Patient Does Not Have Time)Start: 46-02-5718Pqjrjiwnnm measurement Creatinine monitoringPomerene HospitalStart: 68-20-3605Xqdnsgbog monitoringPotassium monitoringMercy HealthStart: 01-23-2022 End: 48-53-2183Cnvallk encounter ynmwwdtat35/25/2022 Office Visit Primary Care Osmar Rodriguez MD [address] [place] [address] [facility] Primary CareStart: 29-59-1389Uhgtjsvrvp measurementCreatinine monitoringMercy Health Work Phone: start: 62-51-1087Qdfqatwia monitoringPotassium monitoringMercy Health Work Phone: start: 40-47-7546Zzhgzrbanm measurementCreatinine monitoringMercy Health Work Phone: start: 39-19-0739Fneilynqw monitoringPotassium monitoringMercy Health Work Phone: start: 84-20-5245Tychgnuasf measurementCreatinine monitoringMercy Health Work Phone: start: 22-68-9626Wipcplaei monitoringPotassium monitoringMercy Health Work Phone: start: 36-52-3612Gjvwebfhn vaccinationAvita Health System Galion Hospitaltart: 26-13-2158Ulclilner vaccinationFlu vaccine (#1)CHICO RACQUEL [facility]ENTERStart: 10-24-2021 End: 21-23-1325Xgnqtpd encounter wybwrykgp24/26/2022 Office Visit Cardiology Josef Brooks MD [address] [place] [address] [facility] CARDIOLOGY Part [facility]ertart: 05-16-2021 End: 80-39-9711Fywrhry encounter hkhlozdzb98/15/2022 Office Visit Primary Care Osmar Rodriguez MD [address] [place] [address] [facility] Primary CareStart: 05-10-2021 End: 60-03-6543Xhbtvui encounter sdjusfhur45/09/2022 [facility]ment [facility] MammographyStart: 05-02-2021 End: 22-84-1721Zebjilg encounter nouexousp02/01/2022 Office Visit General Surgery Carlo Bridges MD [address] [place] [address] [facility] GENERAL SURGERY Part [facility] Hospitaltart: 04-24-2021 End: 06-98-1803Bpfgcib encounter xfoonhxjj18/24/2022 Office Visit Primary Care Osmar Rodriguez MD [address] [place] [address] [facility] Primary CareStart: 12-17-9268Yndqrmlutd A1c zmfqeobkhjiZ4H test (Diabetic or Prediabetic)Pomerene HospitalStart: 10-79-6574Jrpqditark measurementCreatinine monitoringMercy Health- [place], [place]Start: 15-14-5576Eavwawcvn monitoringPotassium monitoringMercy Health- [place], [place]Start: 90-23-6709Hzxjpurwqy measurementCreatinine monitoringMercy Health- [place], [place]Start: 04-37-7240Mgktsotgr monitoringPotassium monitoringMercy Health- [place], [place] Start: 55-71-5611Zkrxnchxoq measurementCreatinine monitoringMercy Health- [place], [place] Start: 22-00-1797Ektog panelMercy HealthStart: 41-47-7401Bsxrzwzvm monitoring Potassium monitoringMercy Health- [place], [place]Start: 22-00-5243Bcwbjxvlto measurement Creatinine monitoringMercy Health- [place], [place]Start: 90-97-8166Pjttz panelLipid screenMer Health- [place], [place]Start: 88-49-3025Duhtjohnj monitoringPotassium monitoringMercy Health- [place], [place]Start: 65-84-6424Xystnrj stimulating hormone measurementTSH testingKettering Health Miamisburgcy HealthStart: 30-53-7368POC QnTSH testingAshtabula County Medical Center Health- [place], [place]Start: 42-78-4264Cvuffswgr vaccinationFlu vaccine (#1)[facility] Start: 27-31-3491Hiixqzjgln measurementCreatinine monitoringMercy Health- [place], [place] Start: 35-21-2839Sirhpurwu monitoringPotassium monitoringSt. [facility] [place], [place] Start: 71-30-2524Wzbnmixcwh measurementCreatinine monitoringSt. [facility] [place], [place] Start: 06-51-5814Lawtemuoe monitoringPotassium monitoringSt. [facility] [place], [place] Start: 42-01-4224Szaicxlqfd measurementCreatinine monitoringSt. [facility] [place], [place] Start: 95-69-9977Dlfbaotxv monitoringPotassium monitoringGreen [facility], [place] Start: 68-13-2919Rumezekxai measurementCreatinine monitoringSt. [facility] [place], [place] Start: 64-83-8164Gnkmtsvry monitoringPotassium monitoringGreen [facility] Hospital, [place] Start: 89-20-3598GeI5x (Bld) [Mass fraction]A1C test (Diabetic or Prediabetic) [facility], [place]Start: 84-01-9818Gkpxrllzxd A1c ylsadfvkjmpR9A test (Diabetic or Prediabetic)Pome[facility] HospitalStart: 65-73-1400Cdflpugfwm measurement Creatinine [facility], KYStart: 27-09-9220Srefcekhi monitoring Potassium [facility], KYStart: 13-01-1898DKZ QnTSH testingGreen Cross Hospital, KYStart: 99-11-6096Mkrrvivtk for malignant neoplasm of lungLow dose CT lung screeningPomerene HospitalStart: 20-09-3050Mnsrqijjbm monitoringCreatinine monitoringPomerene Hospital Work Phone: start: 85-55-3557Ueteexgns monitoringPotassium monitoringPomerene Hospital Work Phone: start: 77-18-8949Yfr dose CT lung screeningLow dose CT lung screeningGreen Cross Hospital, KYStart: 15-13-2282Lcvhqjdth for malignant neoplasm of lungLung Cancer Screening &/or CounselingCENTRA [facility] Start: 03-15-2020 End: 29-88-8496Bwcunu [facility] Kidney and HypertensionStart: 93-41-8915KggrpzoeuzeZqwvbtcyb - Screening (40958)[facility] Work Phone: Start: 02-24-2020 End: 81-49-0615Kejtkcyjloh42/25/2020 Appointment IP UnitMTHZ CATH LABStart: 55-15-6800Igkoh [address] [place] [address] Work Phone: Start: 02-01-2020 End: 96-53-1111Tffsux Visit02/01/2020 Office Visit Cardiology Josef Brooks MD [address] [address] [facility] CARDIOLOGY Part of [facility] Hospitaltart: 37-25-0544GoikottjaoSt. Rita's Hospital Work Phone: Comment on above:Note: Please make a referral to: Start: 68-88-0534Rtrhdpebl vaccinationFlu vaccine (#1)[place], [place]Start: 11-23-2019 End: 37-74-0412Nqznmc Visit11/23/2019 Office Visit Cardiology Josef Brooks MD [address] [place] [address] [place] [address] [facility] CARDIOLOGY Part of [facility] Hospitaltart: 01-91-6282Uhejwtnrnrck consultation with [facility] Work Phone: Comment on above:Note: Please make a referral to: Start: 10-26-2019 End: 18-34-0888Wfugyk Visit10/26/2019 Office Visit Pulmonology Favian Alvarez MD [address] [address] [facility] OUTREACH PULM Part of [facility] HospitalStart: 10-12-2019 End: 37-95-3953Cktoqc Visit10/12/2019 Office Visit Cardiology Josef Brooks MD [address] [place] [address] [facility] CARDIOLOGY Part of [facility] HospitalStart: 10-01-2019 End: 52-02-9832Atxnjukmxaa72/02/2020 Appointment IP UnitMTHZ CATH LABStart: 09-29-2019 End: 22-71-3070Lxvknk Visit09/29/2019 Office Visit Cardiology Josef Brooks MD [address] [place] [address] [facility] CARDIOLOGY Part of [facility] HospitalStart: 09-28-2019 End: 54-12-3531Mbtcxojtaxa13/29/2020 Appointment LabMTHZ Covid ScreeningStart: 62-95-1296Zkrfjzj Established PatientOswego Medical Center Work Phone: Start: 09-24-2019 End: 33-69-6757Llppqmrvoog36/25/2020 Appointment IP UnitMTHZ CATH LABStart: 00-53-8028Xkpcvsyo Medicine & RehabHealth [facility] Work Phone: Comment on above:Note: Please make a referral to: [facility]oStart: 09-21-2019 End: 81-22-7851Hvnqab Visit09/21/2019 Office Visit Pulmonology Favian Alvarez MD [address] [address] [phone] [facility] OUTREACH PULM Part of [facility] Hospitaltart: 09-18-2019 End: 27-18-7677Ymazgk Visit09/18/2019 Office Visit Cardiology Josef Brooks MD [address] [place] [address] [facility] CARDIOLOGY Part of [facility] HospitalStart: 09-17-2019 End: 42-35-3717Taplhaiqoem44/18/2020 Appointment Stress LabMTHZ Stress LabStart: 35-13-9895LhdxtxclkunxWbiazrWilliam [facility] Work Phone: Start: 09-10-2019 End: 63-97-1356Imfoow VisitHENRY COUNTY HOSPITAL OUTREACH PULM Part of [facility] HospitalStart: 09-09-2019 End: 57-51-4191Krwvqcwzfbi93/10/2020 Appointment Stress LabMTHZ Stress LabStart: 32-39-0479Dqvdamxddlb Syncytial Virus (RSV) or age 60 yrs+ (1 - 1-dose 60+ series)Respiratory Syncytial Virus (RSV) or age 60 yrs+ (1 - 1-dose 60+ series)[facility]OS[facility]ITALStart: 33-28-1161Xzqshooatax Syncytial Virus (RSV) or age 60 yrs+ (1 - Risk 60-74 years 1-dose series)Respiratory Syncytial Virus (RSV) or age 60 yrs+ (1 - Risk 60-74 years 1-dose series)[facility] CenterStart: 63-22-2977Ejzsvopaq for malignant neoplasm of colonFIT/FOBT: Average [facility] HospitalStart: 08-03-2019 End: 47-28-0741Qwggkn Visit08/03/2019 Office Visit Cardiology Josef Brooks MD [address] [place] [address] [facility] CARDIOLOGYStart: 07-06-2019 End: 44-50-4102Vyfofq Visit07/06/2019 Office Visit Pulmonology Martin Alvarez MD [address] [id number] [facility] OUTREACH PULMStart: 06-23-2019 End: 52-93-7858VxezryrwzftOgbee Health Tiffin CT ScanStart: 06-09-2019 End: 63-80-8812Smnbao Visit06/09/2019 Office Visit Cardiology Josef Brooks MD [address] [place] [address] [facility] CARDIOLOGYStart: 86-97-0371YY Chest PA & LAT ([address])[facility] [employer] [facility] Work Phone: start: 05-13-2019 End: 75-23-4970Xowlibv encounter /12/2020 Appointment [facility] MammographyStart: 04-28-2019 End: 47-08-4073Aqdcugh encounter kizayrzuo01/28/2020 Office Visit Cardiology Josef Brooks MD [address] [place] [address] [facility] CARDIOLOGYStart: 04-19-2019 MammographyMammogram - Screening ([address])[facility] Work Phone: start: 98-49-4179Htsku 1996 panelLipid ProfileBerkshire Medical Center Work Phone: Start: 23-41-6527Fyogl Drugs of Abuse Screen (DANIEL) [facility] Work Phone: Start: 18-58-8921Eejyhpz Established [facility] Work Phone: Start: 03-12-2019 End: 91-82-3069Pndyphzduxa33/12/2019 Appointment Vascular LabTogus Va Medical Center Vascular LabStart: 70-91-9453Whtxh panelLipid screenGreen Cross Hospital, KYStart: 12-40-8671Lokcc screenLipid screenGreen Cross Hospital, KYStart: 53-31-8365GF Shoulder 2 Views ([address])[facility] Work Phone: start: 01-15-2019 End: 34-56-3837Lkdzw metabolic 2000 panelBasic Metabolic Panel Lab Routine Hyponatremia Expected: 01/15/2019, Expires: 01/14/2020[facility], [place] Comment on above:Expected: 01/15/2019, Expires: 01/14/2020Start: 01-14-2019 [facility]Health [facility] Work Phone: comment on above:Note: Please make a referral to: Start: 99-85-5840Fuzeiqn StockBerkshire Medical Center Work Phone: Start: 39-19-2652Aqmfyefx TherapyBerkshire Medical Center Work Phone: comggzx on above:Note: Please make a referral to: Start: 42-94-1159Ejwrjscuk to same day surgery centerGeneral SurgeryBerkshire Medical Center Work Phone: comment on above:Note: Please make a referral to: Dr Avila: 75-92-0487Aighqbh Established [facility] Work Phone: Start: 10-30-2018 End: 84-06-0523GhufgtdbkhxCtttibBerkshire Medical Center Work Phone: comment on above:Note: Please make a referral to: Start: 09-30-2018 End: 98-89-2580Ugonijmzmmrrs metabolic 2000 panelComprehensive Metabolic Panel (CP)[facility] Work Phone: Start: 09-30-2018 End: 59-92-1281Rfqd T4 [Mass/Vol]T4 Free (FT4)[facility] Work Phone: start: 09-30-2018 End: 35-56-3598Ufypy panelLipid Panel (LIPR)[facility] Work Phone: start: 09-30-2018 End: 61-22-3418YfedcyxfixvDkhdsxBerkshire Medical Center Work Phone: Start: 09-30-2018 End: 14-41-1468MJJ QnTMayo Clinic Arizona ([place] Work Phone: start: 77-21-4934QJJ W Auto Differential panel - Blood CBC with diff (CDP)[facility] CenterStart: 35-92-5931Lhzufidfmsjcz metabolic 2000 panelComprehensive Metabolic Panel (CP)[facility] Work Phone: start: 13-70-4840Qtvw T4 [Mass/Vol]T4 Free (FT4)[facility] Work Phone: Start: 53-05-7961Oedyp panelLipid Panel (LIPR)[facility] Work Phone: Start: 73-20-6870QsqqklyuaznTzfgywBerkshire Medical Center Work Phone: start: 39-43-6928HBY QnTMayo Clinic [facility] ([place]) Work Phone: start: 44-01-8318Pbmqzrfakbyx 0-64 years Vaccine (1 of 1 - PPSV23)Pneumococcal 0-64 years Vaccine (1 of 1 - PPSV23)[facility]- [place], [place]Start: 89-49-1842TZMF visit, estab ptEstablished PatientOswego Medical Center Work Phone: Start: 24-21-9620KWIV visit, estab ptEstablished PatientOswego Medical Center Work Phone: Start: 70-39-3531Qujnjjsobq radiography of chest, combined PA and lateralChest xray, PA & lateralHealth [facility] start: 52-44-2913Cfwvwao bacterial quanttative colony count urineUA + reflex cultureHealth [facility] start: 57-27-5184Ruehefkvvv qual/semiquant except immunoassaysUA + reflex cultureHealth [facility] start: 71-43-3628Omoqwrkb foot examinationDiabetic foot examMer HealthStart: 46-56-7152Xrh bact xcpt urine blood/stool aerobic isol Wound culture and sensitivityHealth [facility] start: 49-37-0690Xyyofwgqjgm antibodies anaANA screen [facility] start: 81-45-0426Woshr of free thyroxineTSH + free t4 [facility] start: 43-67-0185Tsaaw of thyroid stimulating hormone tshTSH + free f9Yewcga [facility] start: 30-61-2414Giebt count complete auto&auto difrntl wbcCBC W/DiffHealth [facility] Start: 08-06-2017C reactive protein (CRP)CRPHealth [facility] Start: 66-25-3959Ernhjxlginhaj metabolic panelCMPHealLicking Memorial Hospital start: 70-16-5093Yoru energy X-ray photon absorptiometryDEXA scan for body composition studyHealth [facility] Start: 14-95-1411Xhphkyuejwz sedimentation rateESR [facility] start: 31-93-2715Hmaeinwbmqs analyte qual/semiqual multiple stepRheumatoid factor antibody panel (IgG, IgM, IgA)[facility] start: 64-69-6878Lsqtw panelLipid Panel (Chol, HDL, LDL, Trig., VLDL)[facility] start: 71-69-4556Ewjigghovq factor quantitative Rheumatoid factor antibody panel (IgG, IgM, IgA)[facility] start: 35-07-1064JlwdvwBerkshire Medical Center start: 45-43-6391Soiyjczik for malignant neoplasm of breastBreast cancer screenPomerene HospitalStart: 08-87-9085Mvfmdhlmh mammography, bilateral (2-view study of each breast),[facility] start: 50-93-5132Qboszwuhh for osteoporosisDEXA (modify frequency per FRAX score)Bon [facility]: 31-20-4571G5J test (Diabetic or Prediabetic)A1C test (Diabetic or Prediabetic)[place], [place] Start: 28-80-9574TvJ7g (Bld) [Mass fraction]A1C test (Diabetic or Prediabetic) [place], [place]Start: 20-32-3443ATX testingTSH testingWaters[place], [place] Start: 84-74-3992Nrcpxlocaerkuc of varicella zoster vaccineZoster (Shingles) Vaccine (1 of 2)unrival SystemStart: 43-84-1236Hqptnf cancer screen Breast cancer screenW[place], KYStart: 02-29-5627Rwzwliucw for malignant neoplasm of breastBreast cancer screenBON SECFayette County Memorial Hospitalart: 08-30-2009 Screening for malignant neoplasm of lungLow dose CT lung screeningBON [facility] Hospitalart: 87-38-5381Lwkzqlih Vaccine (1 of 2)Shingles Vaccine (1 of 2) [facility] HospitalStart: 20-11-2977Mgxdrp vaccine hzv live for subcutaneous useZOSTER (SHINGLES) VACCINE (1 of 2)[facility] CenterStart: 68-49-9767Uoubljyvkpb COLORECTAL CANCER SCREENING DISCUSSIONOSWayne HealthCare Main Campustart: 08-30-2004 Screening for malignant neoplasm of colonPomerene HospitalStart: 48-37-4548Iulycat lipid profileLIPID SCREENINGOSWayne HealthCare Main Campustart: 48-86-8547Hcvwo panelLIPID SCREENINGOSKettering Memorial Hospital CenterStart: 63-54-1785Xzjrhhnkd for malignant neoplasm of breastOSKettering Memorial Hospital CenterStart: 62-32-1299Fizybnrki mammographyMAMMOGRAM SCREENING DISCUSSIONOSKettering Memorial Hospital CenterStart: 54-75-0113Lnifngsmk for malignant neoplasm of cervixBON [facility] Start: 93-46-9466Wnaxfqby cancer screenCervical cancer [facility]: 64-86-2350Lgektweyn for malignant neoplasm of cervixOSKettering Memorial Hospital CenterStart: 51-01-9231Irpgdbsww B Vaccine (1 of 3 - Risk 3-dose series) Hepatitis B Vaccine (1 of 3 - Risk 3-dose series)[facility]: 37-07-9146Vtitl diphtheria, tetanus and acellular pertussis (DTaP) vaccination TDAP (ADULT)[facility] Hospitaltart: 81-88-1272Rfufv BMI Follow Up Plan Adult BMI Follow Up PlanUNC Health Appalachiantart: 40-78-5199Reeyhvbf foot examinationDiabetic Foot ExamProMercy Health Urbana Hospitaltart: 81-63-8158Pfludeqj microalbuminuria testDiabetic microalbuminuria testPomerene HospitalStart: 08-30-1977 Diabetic retinal examDiabetic retinal examPomerene HospitalStart: 88-24-4907Hzsnraho screeningDiabetic retinal examBON [facility]ENTERStart: 17-18-5888Qinflcypv C screeningHepatitis C screenCENTRA BEDFORD MEMORIAL HOSPITALStart: 67-10-9189Xiafyca vaccinationTETANUSOSWayne HealthCare Main Campustart: 81-30-0582Ywmds screening for proteinDiabetic microalbuminuria testPomerene HospitalStart: 03-22-5101JLQ screenHIV screenMercy Health St. Joseph Warren Hospitalart: 33-17-9323DBO screeningSt. Charles Hospitalart: 58-89-1639JPYWC-19 Vaccine (1)COVID-19 Vaccine (1)Pome[facility] HospitalStbutler: [birth year]30-1970 [object Object]Diabetic foot examGreen Cross Hospital, [place]Start: 66-11-4307Kscwuvdq foot examinationDiabetic foot examGreen Cross Hospital, KYStart: 36-55-7501Krmteqkz retinal examDiabetic retinal examPomerene HospitalStart: 80-48-1223AELYYUGDMFTN VACCINE SERIES (1 - PCV)PNEUMOCOCCAL VACCINE SERIES (1 - PCV)[facility] Hospitaltart: 43-32-2880HQNMB-19 Vaccine (1)COVID-19 Vaccine (1)[facility] Start: 85-94-7630MSJFO-19 VACCINE (#1)COVID-19 VACCINE (#1)[facility] Hospitaltart: 49-76-3120Gbqxvhqi screeningDiabetic Ophthalmology ExamProParkwood Hospital SystemStart: 76-34-6402Ydvpfwixv C antibody, confirmatory testHEPATITIS C VIRUS SCREENINGAvita Health System Galion Hospitaltart: 99-04-0475Ikfuxuvmc C screen Hepatitis C screenGreen Cross Hospital, [facility] Rehabilitation Centerart: 64-34-2208Jeejuatkh C screening [facility]: 88-58-3104Yfpuorx stimulating hormone measurementTSCleveland Clinictart: 05-02-7659Alynvnf CounselingTobacco Counseling [facility] Medical CenterAcapellaAcapella Respiratory Care Routine Every 1hr while awake until discontinued starting 03/17/2021[facility] [employer] [facility] Phone: comment on above:Every 1hr while awake until discontinued starting 1AcapellaAcapella Respiratory Care Routine TID until discontinued starting 04/22/2019[facility] [employer] Phone: comment on above:TID until discontinued starting 04/22/2019AcapellaAcapella Respiratory Care Routine TID until discontinued starting 08/06/2024on [facility] Medical Centerment on above:TID until discontinued starting 08/06/2024asic metabolic 2000 panel - Serum or Plasma Basic Metabolic Panel Lab Routine Daily until discontinued starting 04/24/2019, 3 [employer] Work Phone: comment on above:Daily until discontinued starting 04/24/2019, 3 completedBasic Metabolic Panel w/ Reflex to MGBasic Metabolic Panel w/ Reflex to MG Lab Routine Every Other Day until discontinued starting 07/25/2019, 1 completedInfoRemate, Social Growth TechnologiesComment on above:Every Other Day until discontinued starting 07/25/2019, 1 completedBasic Metabolic Panel w/ Reflex to MGBasic Metabolic Panel w/ Reflex to MG Lab Routine Daily until discontinued starting 03/18/2021, 2 completedS[employer] Work Phone: comment on above:Daily until discontinued starting 03/18/2021, 2 completed End: 86-24-1397Jitjd Metabolic Panel w/ Reflex to MGBasic Metabolic Panel w/ Reflex to MG Lab Routine Daily for 9 Days starting 08/07/2024 until 08/15/2024, 4 completedBon [facility]ours Mercy HealthThe Halo GroupComment on above:Daily for 9 Days starting 08/07/2024 until 08/15/2024, 4 completedBasophils [#/volume] in Blood by Automated [facility] Medical CenterBasophils/100 leukocytes in Blood by Automated [facility] CenterBedside Glucose *Place/Obtain serum glucose if >500 per glucometer.Bedside Glucose *Place/Obtain serum glucose if >500 per glucometer. Point of Care Testing Routine 4X Daily (AC and at bedtime) until discontinued starting 12/30/2024, 6 completedProCiclon Semiconductor Device Corporation Health SystemComment on above:4X Daily (AC and at bedtime) until discontinued starting 12/30/2024, 6 completedBIPAApplied [employer] Work Phone: comment on above:Every 4hr until discontinued starting 07/22/2019Every 4hr until discontinued starting 04/22/2019 End: 54-74-8441Vkkeqbuyvlxsvbl and angiography procedure details panelDiagnostic Cardiac Cost Accounting Manager Procedure Cardiac Cath Routine One Time for 1 Occurrences starting 03/17/2020 until 03/17/2020[facility] MiamisburgPower Africa, [employer] Growth TechnologiesComment on above:One Time for 1 Occurrences starting 03/17/2020 until 03/17/2020CBC auto differential [employer] Work Phone: comment on above:Every Other Day until discontinued starting 07/24/2019, 1 completedDaily until discontinued starting 04/24/2019, 3 completedCBC W Auto Differential panel - BloodCBC Auto Differential Lab STAT Daily until discontinued starting 03/18/2021, 2 Cerule[employer] PharmaKettering Health MiamisburgPlaid Work Phone: comment on above:Daily until discontinued starting 03/18/2021, 2 completed End: 95-61-5645ODB W Auto Differential panel - BloodCBC auto differential Lab Routine Daily for 9 Days starting 08/06/2024 until 08/14/2024, 5 completedBon [facility] SennariComment on above:Daily for 9 Days starting 08/06/2024 until 08/14/2024, 5 completedCBC W Auto Differential panel - BloodCBC auto differential Lab Routine Lab max of 3 days, Daily, for lab use only until discontinued starting 12/31/2024, 2 [facility] HospitalMarco Polo Project [facility] HospitalComment on above:Lab max of 3 days, Daily, for lab use only until discontinued starting 12/31/2024, 2 completedComprehensive metabolic 2000 panel - Serum or Plasma Comprehensive metabolic panel Lab Routine Lab max of 3 days, Daily, for lab use only until discontinued starting 12/31/2024, 2 [facility] HospitalMarco Polo Project System Comment on above:Lab max of 3 days, Daily, for lab use only until discontinued starting 12/31/2024, 2 completedCOVID-19[facility] [employer]- [place], [place] End: 51-18-6582XFBIY-19, PCRCOVID-19, PCR Lab Routine One Time for 1 Occurrences starting 03/13/2020 until 03/13/2020[facility] [place], [place]Comment on above:One Time for 1 Occurrences starting 03/13/2020 until 03/13/2020CTA HEAD NECK W CONTRASTCTA HEAD NECK W CONTRAST Imaging STAT 04/12/2019 1:24 PM [employer] Work Phone: End: 81-38-7805Ksnsstf, Blood 1Culture, Blood 1 Microbiology STAT One Time for 1 Occurrences starting 10/06/2019 until 10/06/2019[facility] [place], [place]Comment on above:One Time for 1 Occurrences starting 10/06/2019 until 10/06/2019Culture, Blood 1Culture, Blood 1 Microbiology STAT 10/06/2019 10:00 AM [facility]McKit[facility] Hospital, KYCulture, Blood 1Culture, Blood 1 Microbiology STAT 03/17/2021 9:00 PM ScionHealthThe [employer] Group Work Phone: culture, Blood 1Culture, Blood 1 Microbiology STAT 08/06/2024 3:15 PM EDCar[facility] End: 74-81-7501Hvqzeaf, Blood 2Culture, Blood 2 Microbiology STAT One Time for 1 Occurrences starting 10/06/2019 until 10/06/2019[facility] on above:One Time for 1 Occurrences starting 10/06/2019 until 10/06/2019Culture, Blood 2Culture, Blood 2 Microbiology STAT 10/06/2019 12:40 [facility] [place]Culture, [place] 2Culture, Blood 2 Microbiology STAT 08/06/2024 4:50 PM EDT [facility] [employer] End: 61-98-0226Pyrfmjr, RespiratoryCulture, Respiratory Microbiology Routine One Time for 1 Occurrences starting 07/18/2019 until 07/18/2019[facility] Comment on above:One Time for 1 Occurrences starting 07/18/2019 until 07/18/2019 End: 79-28-2555Prfburk, UrineCulture, Urine Microbiology Routine Once for 1 Occurrences starting 07/17/2019 until 07/17/2019[facility] on above:Once for 1 Occurrences starting 07/17/2019 until 07/17/2019Culture, Urine [facility], [place] End: 63-82-9770Ybunzpz, UrineCulture, Urine Microbiology Routine Once for 1 Occurrences starting 11/16/2019 until 11/16/2019[facility] on above:Once for 1 Occurrences starting 11/16/2019 until 11/16/2019 End: 20-07-6521Nzgvrxa, UrineCulture, Urine Microbiology Routine Once for 1 Occurrences starting 02/12/2020 until 02/12/2020[facility] on above:Once for 1 Occurrences starting 02/12/2020 until 02/12/2020Culture, Wound (with Gram Stain)Culture, Wound (with Gram Stain) Microbiology Routine 09/03/2024 11:35 AM EDTBon [employer] Work Phone: End: 58-48-9468Rwmw Screen, PainCamer[employer] Work Phone: comment on above:1 Occurrences starting 08/13/2022 until 08/13/2022EKG 12 LeadSennari- [place], KYEKG 12 LeadEKG 12 Lead ECG STAT 02/09/2021 11:32 AM [employer] Work Phone: eosinophils/100 leukocytes in Blood by Automated count [facility] HospitalErythrocyte distribution width [Ratio] by Automated [facility] CenterErythrocytes [#/volume] in Blood [facility] End: 26-71-0817XbrhohecvhgfmwyprvsfzilmwoXKD GI Routine Gastrointestinal hemorrhage, unspecified gastrointestinal hemorrhage type Gastric ulcer without hemorrhage or perforation, unspecified chronicity 1 Occurrences starting 01/14/2024 until 01/13/2025[facility] Work Phone: Comment on above:1 Occurrences starting 01/14/2024 until 01/13/2025 End: 16-72-7466UxT1x (Bld) [Mass fraction]Hemoglobin A1C Lab Routine Once for 1 Occurrences starting 07/24/2019 until 07/24/2019[employer] [place], [place]:Once for 1 Occurrences starting 07/24/2019 until 07/24/2019HbA1c (Bld) [Mass fraction]Hemoglobin A1C Lab Routine 07/24/2019 4:42 AM EDTMApplied BioCode- [place], [place]Heated/ Humidified High Flow Nasal CannulaHeated/ Humidified High Flow Nasal Cannula Respiratory Care Routine Every 4hr until discontinued starting 07/17/2019, 1 completedMerPower [place], [place] above:Every 4hr until discontinued starting 07/17/2019, 1 completedHematocrit [Volume Fraction] of [facility] HospitalHem[facility] [Mass/volume] in [facility] End: 72-33-1201Vfgrisaekm A1c/Hemoglobin.total in BloodBON [employer] Work Phone: comment on above:1 Occurrences starting 07/26/2022 until 07/26/2022HHN TreatmentHHN Treatment Respiratory Care Routine Daily until discontinued starting 07/18/2019[facility], [place]Comment [place]:Daily until discontinued starting 07/18/2019Initiate Oxygen Therapy [facility] [employer] Work Phone: comment on above:Daily until discontinued starting 07/18/2019Daily until discontinued starting 04/21/2019 End: 25-83-0417Njobbgcj RT ProtocolInitiate RT Protocol Respiratory Care Routine Continuous until discontinued starting 07/22/2019[facility], [place]Comment [place] above:Continuous until discontinued starting 07/22/2019 End: 12-85-5713Acfgnqijabcz pulse oximetryPulse Oximetry Spot Check Respiratory Care Routine One Time for 1 Occurrences starting 03/17/2020 until 03/17/2020 [facility], [place]Comment [place] above:One Time for 1 Occurrences starting 03/17/2020 until 03/17/2020Leukocytes [#/volume] corrected for nucleated erythrocytes in Blood by Automated [facility] Leukocytes [#/volume] in BloodHenry [facility] Hospital End: 09-98-5704Jsqno panel - fastingLipid panel - fasting Lab Routine Tomorrow AM for 1 Occurrences starting 03/18/2020 until 03/18/2020[facility] [place] Comment on above:Tomorrow AM for 1 Occurrences starting 03/18/2020 until 03/18/2020Lipid panel - fastingLipid panel - fasting Lab Routine 03/18/2020 5:20 AM [facility], CARLOSLymphocytes [#/volume] in Blood by Automated Madison HealthLymphocytes/100 leukocytes in Blood by Automated [facility] CenterMagnesium [Mass/volume] in Serum or PlasmaMagnesium Lab Routine Lab max of 3 days, Daily, for lab use only until discontinued starting 12/31/2024, 2 completedMiddletown Hospital Health SystemComment on above:Lab max of 3 days, Daily, for lab use only until discontinued starting 12/31/2024, 2 completedMCH [Entitic mass] by Automated [facility] CenterMCHC [Mass/volume] by Automated [facility] CenterMCV [Entitic volume] by Automated [facility] End: 03-07-1823Bupsggdljebv / Creatinine Urine RatioMicroalbumin / Creatinine Urine Ratio Lab Routine Hyperglycemia 1 Occurrences starting 07/26/2022 until 3BON [employer] Work Phone: comment on above:1 Occurrences starting 07/26/2022 until 07/26/2022Monocytes [#/volume] in Blood by Automated [facility] CenterMonocytes/100 leukocytes in Blood by Automated [facility] End: 98-40-8162ZJBO DNA Probe, NasalMRSA DNA Probe, Nasal Microbiology Routine Daily for 2 Occurrences starting 04/25/2019 until 04/26/2019, 1 [employer] Work Phone: comment on above:Daily for 2 Occurrences starting 04/25/2019 until 04/26/2019, 1 completedNasal Cannula OxygenSennari- [place], [place] Comment on above:Daily until discontinued starting 06/15/2019, 2 completedDaily until discontinued starting 03/13/2020Daily until discontinued starting 03/18/2020Nasal Cannula OxygenNasal Cannula Oxygen Respiratory Care STAT Daily until discontinued starting 03/17/2021[employer] Work Phone: Comment on above:Daily until discontinued starting 03/17/2021Nasal Cannula OxygenNasal Cannula Oxygen Respiratory Care Routine Daily until discontinued starting 5Bon MeterHeroComment on above:Daily until discontinued starting 08/13/2024Neutrophils [#/volume] in Blood by Automated [facility] CenterNeutrophils/100 leukocytes in Blood by Automated [facility] CenterNucleated erythrocytes [Presence] in Blood by Automated [facility] CenterOxygen Therapy - Maintain SpO2: 90% or greaterOxygen Therapy - Maintain SpO2: 90% or greater Respiratory Care STAT As Needed until discontinued starting 12/30/2024[facility] Work Phone: Comment on above:As Needed until discontinued starting 12/30/2024Oxygen Therapy - Maintain SpO2: 90%; *PERSONAL LINES SALES REP Guidelines for O2: Yes; Document: \[email or web address]\epic\EPIC_Reference\Orders\Respiratory Care Guidelines\CPG Oxygen 2022.pdfOxygen Therapy - Maintain SpO2: 90%; *PERSONAL LINES SALES REP Guidelines for O2: Yes; Document: \[email or web address]\epi c\EPIC_Reference\Orders\Respiratory Care Guidelines\CPG Oxygen 2022.pdf Respiratory Care Routine AsNeeded until discontinued starting 12/30/2024 [facility] Work Phone: Comment on above:As Needed until discontinued starting 12/30/2024Oxygen therapy [Minimum Data Set]Sennari- [place], [employer] Growth TechnologiesComascension standish hospital on above:Daily until discontinued starting 03/17/2020Daily until discontinued starting 03/18/2020Oxygen therapy [Minimum Data Set]Initiate Oxygen Therapy Protocol Respiratory Care Routine Daily until discontinued starting 08/06/2024 [facility] on above:Daily until discontinued starting 08/06/2024Oxygen therapy [Minimum Data Set]Initiate Oxygen Therapy Protocol Respiratory Care Routine Daily until discontinued starting 08/12/2024on [facility]Miss[facility] on above:Daily until discontinued starting 08/12/2024 End: 25-63-7411Xzov Review, SmearBon MeterHeroMissouri Rehabilitation Center on above:One Time for 1 Occurrences starting 08/15/2024 until 08/15/2024Patient EducationKnow your [facility] Work Phone: Patient referralHighland District Hospital Ctr Work Phone: Platelet mean volume [Entitic volume] in Blood by Automated countHenry County HospitalPlatelets [#/volume] in Blood [facility] CenterPOCT glucoseAshtabula County Medical Center Health Work Phone: comment on above:4X Daily (AC & HS) until discontinued starting 03/18/2020As Needed until discontinued starting 03/18/2020As Needed until discontinued starting 07/18/20194X Daily (AC & HS) until discontinued starting 07/22/20194X Daily (AC & HS) until discontinued starting 04/24/2019As Needed until discontinued starting 04/24/2019Positive Expiratory Pressure TherapyPositive Expiratory Pressure Therapy Respiratory Care Routine TID until discontinued starting 5Bon Swift[employer]MD(TM) by [employer] on above:TID until discontinued starting 08/06/2024 End: 74-89-5465BivfkcryisqgkSFL [place] Phone: comment on above:1 Occurrences starting 08/13/2022 until 9464Pryqabj-AVWLqrvehn-TVA Lab STAT As Needed until discontinued starting 03/17/2020[facility] [place], [place]Comment [place]:As Needed until discontinued starting 03/17/2020Pulse oximetry, continuousKettering Health MiamisburgShiftgig Phone: comment on above:Every 4hr until discontinued starting 07/18/2019Every 4hr until discontinued starting 04/22/2019Respiratory care evaluation onlyRespiratory care evaluation only Respiratory Care Routine As Needed until discontinued starting 07/22/2019[facility] [place], [place]Comment [place]:As Needed until discontinued starting 07/22/2019 End: 97-73-2271Zdtxttomkkv pathogens DNA and RNA panel - Nasopharynx by JANIA with non-probe detectionResp Pathogens Panel/SARS CoV-2 Microbiology Routine Once for 1 Occurrences starting 12/30/2024 until 12/30/2024[facility] Comment on above:Once for 1 Occurrences starting 12/30/2024 until 12/30/2024 End: 92-72-5628PRLQ-CoV-2 (COVID-19) RNA [Presence] in Respiratory specimen by JANIA with probe detectionSARS/FLU A+B/RSV by NAAT/Molecular (M4RT Collection Tube) Microbiology STAT STAT for 1 Occurrences starting 12/30/2024 until 12/30/2024[facility] HospitalRespectance [facility]omb HospitalComment on above:STAT for 1 Occurrences starting 12/30/2024 until 12/30/2024 End: 86-36-2572Bhjmox gram stainSputum gram stain Microbiology Routine One Time for 1 Occurrences starting 07/18/2019 until 07/18/2019[facility] [place] Comment on above:One Time for 1 Occurrences starting 07/18/2019 until 07/18/2019 End: 85-29-6897VFLJIRRY PATHOLOGY REPORTSURGICAL PATHOLOGY REPORT Lab Routine Once for 1 Occurrences starting 08/15/[address]24 [address] [facility] CenterComment on above:Once for 1 Occurrences starting 08/15/2024 until 08/15/2024 End: 34-64-9558Oqlvdzenim, reflex to microscopicUrinalysis, reflex to microscopic Lab STAT One Time for 1 Occurrences starting 03/21/2020 until 03/02[facility], CAComment on above:One Time for 1 Occurrences starting 03/21/2020 until 03/21/2020 Immunizations Immunization DateImmunizationNotesCare NmxyvefhOnxakkkg69-99-3523itzfnqj toxoid, reduced diphtheria toxoid, and acellular pertussis vaccine, adsorbedCrystal Genevieve [facility] Medical CenterGyhawe17-06-2504dpwnbimmtepp polysaccharide vaccine, 23 valentAimee [facility] HospitalKatujx29-85-4496rvjwsdsxysuh vaccine, unspecified formulationJustin Andes DO Work Phone: [facility] Work Phone: [phone]znvq, seasonal, injectable; Translations: [Fluarix Quadravalent]Vahid [facility] Work Phone: comment on above:Note: Patient tolerated well. No signs or symptoms of adverse reactions. Patient waited in facilityfor 15 minutes.24-31-9380hmlqvcdyo, injectable, quadrivalent, preservative freeAimee [facility] Work Phone: [phone]r virus vaccine, unspecified formulationSmicah Pickett MD Work Phone: [facility] CenterWnzeks54-43-5780zvbgecgvg virus vaccine, unspecified formulationSmaria elena Rodriguez MD Work Phone: [facility] HOSPITALWIMICA23-20-8294yzgzatveo, seasonal, injectableCrystal Genevieve [facility]03-09-2019influenza virus vaccine, unspecified formulationCrystal Genevieve [facility] 61-98-7866jiytxczsq, injectable, quadrivalent, preservative freeCrystal Genevieve [facility]03-09-2019Influenza, Quadv, 6 mo and older, IM, PF (Flulaval, Fluarix)VahidAdena Regional Medical CenterToyzzk56-16-1523ymidwmtsomhk conjugate vaccine, 13 [facility], OZ62-87-7084dtzoomcptdwl conjugate vaccine, 7 [facility] Work Phone: [phone]wketuj virus vaccine, unspecified formulationSmaria elena Rodriguez MD Work Phone: bon [facility] Work Phone: [phone]fa, seasonal, injectablemee [facility] Work Phone: [phone]yka, injectable, quadrivalent, preservative free; Translations: [FLU VAC NO PRSV 4 OTONIEL 3 YRS+][facility] 1942166-68-3192qnrycfrde, seasonal, injectable, preservative freeJewish Maternity Hospital 10-686870-03-8378XVIAALNJWLQO ADMIN; Translations: [IMMUNIZATION ADMIN]Zach [facility] 1487686-04-9233ftakgikxh virus vaccine, unspecified formulationProctor Hospital Work Phone: pS[facility] Hospital SystemComment on above:Note: Influenza (Adult)04-40-1137jqshikqmb, high dose seasonal, preservative-freeSelect [facility] Work Phone: Comment on above:Note: Influenza (Adult)01-07-2017 tetanus toxoid, reduced diphtheria toxoid, and acellular pertussis vaccine, adsorbedSelect Medical Cleveland Clinic Rehabilitation Hospital, Edwin ShawJfrvdz04-23-0529ggtyrsxpp, injectable, quadrivalent, preservative free; Translations: [FLU VAC NO PRSV 4 OTONIEL 3 YRS+][facility] 1440990-37-3256moejkdrqw, seasonal, injectableJewish Maternity Hospital 1942697-82-0071AIVCKJYOEFZF ADMIN; Translations: [IMMUNIZATION ADMIN]Zach GrimaldoBerkshire Medical Center 1755345-10-7807qaaweypcn virus vaccine, unspecified formulationHca Healthcareen [facility] Work Phone: [facility] Work Phone: comment on above:Note: Influenza (Adult)02-10-2015 influenza, high dose seasonal, preservative-freeSelect Medical Specialty [facility] Work Phone: comment on above:Note: Influenza (Adult)12-30-2013 influenza virus vaccine, unspecified formulationSelect Medical Cleveland Clinic Rehabilitation Hospital, Edwin Shaw 75-05-5353vkzkozuay, seasonal, injectableCrystal Genevieve [facility]12-17-2009novel qsvwtwilm-Q0Q8-59, preservative-free, injectableStefan Jennifer MARTINEZ Work Phone: [facility] Work Phone: Payers DatePayer CategoryPayerPolicy [id number]-pay2022Medicaid [id number] 2022[facility]icaid [facility] Member Subscriber Plan / Payer (Effective 2022-Present) Name: Jonatan Olivarez Alan Relation to Subscriber: Self Name: Jonatan Olivarez Payer ID: [id number] (NAIC) Type: Not on file Address: [address] [id number] [id number] 1.2.840.173850.1.13.239.2.7.3.331984.65509-86-3705Oypeuip [id number] 2.0.1.631205.3.67602-75-7666Jetevvj [id number] 2.16840.1.158677.3.03187-88-0664PjpznpdXRSUDGFWU ADVANTAGE PARAMOUNT ADVANTAGE xxxxxxxxxxx 2017- [phone] [address] [place] , [place] [address]wxwlosewjvx 1.2.840.971906.1.13.239.2.7.3.562141.80806-80-8704Btaqecx PARAMOUNT ADVANTAGE PARAMOUNT ADVANTAGE [id number] 2017- [phone] [address] [place], [place] [id number] 1.2.840.986449.1.13.239.2.7.3.078071.57362-83-7791QukkbsnHBPK 2.0.1.55544[id number] 2.0.1.913048.3.579.2.196 [id number] 2.0.1.841485.3.57[id number] 2.0.1.850707.3.57[id number] 2.0.1.685158.3.57[id number] 2.0.1.852644.3.57[id number] 2.840.1.533278.3.57[id number] 2.840.1.638808.3.57[id number] 2.16.840.1.797362.3.57[id number] 2.16.840.1.058035.3.57[id number] 2.16.840.1.134501.3.57[id number] 2.16.840.1.482603.3.57[id number] 2.16.840.1.711816.3.57[id number] 2.16.840.1.498352.3.57[id number] 2.16.840.1.981318.3.579.2.[id number] 2.16.840.1.940136.3.57[id number] 2.16.840.1.948953.3.57[id number] 2.16.840.1.995544.3.57[id number] 2.16.840.1.379321.3.579.[id number] 2.16.840.1.416181.3.579.[id number] 2.16.840.1.346683.3.57[id number] 2.16.840.1.954387.3.57[id number] 2.16.840.1.781304.3.579.2.8[id number] 2.16.840.1.181728.3.57[id number] 2.16.840.1.654916.3.57[id number] 2.16.840.1.757281.3.57[id number] 2.16.840.1.216212.3.579.2.999561-23-1974Yufsbdq144469443 2.16.840.1.216181.3.57[id number] 2.16.840.1.757557.3.57[id number] 2.16.840.1.857106.3.579.2.3[id number] 2.16.840.1.019066.3.579.2.3[id number] 2.16.840.1.873805.3.57[id number] 2.16.840.1.025987.3.579.[id number] 1.2.840.915521.1.13.23[id number] 2.16.840.1.918464.3.579.2.531 Social History DateTypeDetailFacilityStart: 91-76-9497Guvdd tobacco smokerBerkshire Medical Center start: 01-13-2019 End: 98-14-1792Fsthypf every day smokerHealth [facility] AssertionFamily problems (finding)[facility] Work Phone: assertionGender identity finding (finding)[facility] Work Phone: assertionFinding of sexual orientation (finding)[facility] Work Phone: assertionTobacco user (finding)[facility] Work Phone: Tobacco smoking statusUnknown if ever smokedHealth [facility] Work Phone: start: 70-45-2133PgwjsccifUAZCENTRA BEDFORD [facility]IAL [facility]ITAL AssertionAlcohol consumption screening (procedure)[facility] Work Phone: start: 03-02-2363Rrwwmmx of tobacco useCigarette SmokerSt. Mary's Medical Center: 01-13-2019 End: 46-02-7107Guhibgtzzo smoked current (pack per day) - ReportedTSEHOOTSOOI MEDICAL CENTER ([facility]) [employer] [facility]ENTERStart: 01-13-2019 End: 12-35-8344Bvbnwsp intakeNoMASSACHUSETTS EYE & EAR INFIRMARYWysiwyg [facility] CENTERStart: 01-60-4281Xeh Assigned At BirthNot on fileSt. Mary's Medical Center: 02-23-2019 End: 59-01-7753Rbzevla intakeCurrent non-drinker of alcohol (finding)[facility] InstituteAshwiniingle person (finding)[facility] Work Phone: assertionEmotional stress (finding)[facility] Work Phone: Start: 09-03-2019 End: 58-92-8900Bvmgtgl smoking status NHISCurrent some day smokerPomerene Hospital Exposure to SARS-CoV-2 (event)Unable to assessHighlands-Cashiers Hospital Exposure to pollution (event)[facility] Work Phone: Start: 10-21-2019 End: 18-55-2588Nccvtip use and exposureNever usedSt. Mary's Medical Center: 06-16-2021 End: 89-67-2245Whkvepnw to SARS-CoV-2 (event)Not surePomerene Hospital- [place], [place] AssertionSupport system deficit (finding)[facility] Work Phone: assertionFamily illness (situation)[facility] Work Phone: assertionProblem situation relating to social and personal history (finding)[facility] Work Phone: Start: 02-21-2021 End: 87-98-4499Fjkoozh smoking status NHISLight tobacco smokerAshtabula [facility] Center [employer] Phone: start: 02-21-2021 End: 28-79-5608Jfutxll Comment1 cigarette every 1-2 daysAshtabula County Medical Center [employer] Phone: start: 29-11-1675Qvxpdaj SDOH Hlhigobln3Ttvwn [employer] Work Phone: start: 88-81-0242Sgtosiv SDOH Food Rldrn5Dajym [employer] Work Phone: start: 07-19-2021 End: 01-43-9447Elyjbrc intakeLifetime non-drinker (finding)[facility] Hospitaltart: 43-83-7654Rkowswc SDOH Transport Non-Mxk92WZM [employer] Work Phone: start: 09-25-5965Lldmntm SDOH Housing Homeless Last Awep5YXC [facility] HOSPITALSmartFlow Technologies Work Phone: (I/We) worried whether (my/our) food would run out before (I/we) got money to buy more.Never [facility] county hospitalBON SportingoStart: 01-19-2024 End: 55-33-0119Mjqxfwq smoking status NHISSmoker (finding)[facility] Hospitaltart: 43-72-8174Xwb Assigned At [facility] HospitalHa the electric, gas, oil, or water company threatened to shut off services in your home in past 12MoNoProParkwood Hospital SystemAre you now , , , , never or living with a partner? DivorcedProCrossbridge Behavioral Health Health SystemHow often to you have a drink containing alcohol? NeverProCrossbridge Behavioral Health Health SystemHow hard is it for you to pay for the very basics like food, housing, medical care, and heatingHardProCrossbridge Behavioral Health Health SystemDo you feel stress - tense, restless, nervous, or anxious, or unable to sleep at night because yourmind is troubled all the time - these days [OSQ]Not at allMiddletown Hospital Z[employer] SystemStart: 37-67-0252Unwvlto Commentneeds a nicotine patch upon arrival [facility] HospitalPopuly Gamestart: 05-11-2012 End: 42-88-7524ElcJmcasn (finding)[facility] HospitalEasycause [facility] HospitalHas the OurStage, gas, oil, or water company threatened to shut off services in your home in past 12Mo YesMiddletown Hospital Health SystemHow often to you have a drink containing alcohol? Monthly or lessProParkwood Hospital System(I/We) worried whether (my/our) food would run out before (I/we) got money to buy more.Sometimes trueBon [facility] Medical CenterNEGATED: Highlighted rowAssertionExposure to pollution (event)[facility] Work Phone: NEGATED: Highlighted rowAssertionCurrent drinker of alcohol (finding)[facility] Work Phone: NEGATED: Highlighted rowAssertionFinding relating to drug misuse behavior (finding)[facility] Work Phone: NEGATED: Highlighted rowAssertionIllicit drug use (finding)[facility] Work Phone: NEGATED: Highlighted rowAssertionMisuse of prescription only drugs (finding)[facility] Work Phone: NEGATED: Highlighted rowAssertionHealth [facility]her Memorial Hospital Work Phone: NEGATED: Highlighted rowAssertionTobacco user (finding)[facility] Work Phone: Medical Equipment Procedure CodeEquipment CodeEquipment Original TextEquipment IdentifierDates Lancets Thin [id number]: 51-64-6959Idyi Metrix Blood Glucose Test In Vitro [id number]: [id number]: 12-14-2016 End: 10-38-0044omw as directed TO TEST BLOOD SUGAR three times a [id number] Start: 08-26-2014 End: 34-31-4050vro as directed TO TEST BLOOD SUGAR three times a [id number] Start: 07-25-2019 End: 26-22-2411mft as directed TO TEST BLOOD SUGAR three times a [id number] Start: 03-19-2020 End: 63-33-3496Teuzyewo sufficient amount for indicated testing frequency plus additional to accommodate PRN testing needs. Dispense all needed supplies to include: monitor, strips, lancing device, lancets, controlsolutions, alcohol swabs.[id number]: [id number] 3 times a day & as needed for symptoms of irregular blood glucose. Dispense sufficient amount for indicated testing frequency plus additional to accommodate PRN testing needs.[id number]: 03-23-2021 End: 34-51-1265Bpsg 3 times a day & as needed for symptoms of irregular blood glucose. Dispense sufficient amount for indicated testing frequency plus additional to accommodate PRN testing needs.[id number]: 99-98-5467Omjhyc test blood sugar 1 times daily and prn for symptoms of hyperglycemia or hypoglycemia.[id number]: 42-33-8655Vip Sft Tis 50cmx.49mm 16/8mm - [id number] - [id number]: 06-36-8286Ahyahdt on above:Description: hemagard knitted collagen coated knitted polyester vascular prosthesis. Aorta bifemoralGft Hep Rr T6mm 60cm Rs X70cm - [id number] - [id number] Start: 82-64-1946Krjjluh on above:Description: LEFT FEMORAL-POPLITEAL BYPASS1 strip by other route as needed for high blood sugar.[id number]: 07-16-2024 Goals DatePatient GoalDesired Activity/StatePersonal health goalPersonal health goal Comment on above: Evaluation of progress towards goal: patient will go to SNF for therapyPersonal health goalComment on above: Evaluation of progress towards goal: Patient plans to Home and resume Home Health with [facility] (RN/PT/OT). She is agreeable to [facility] and prefers to go to [facility] as it is closer to home. Personal health goalComment on above: Evaluation of progress towards goal: Patient plans to Home and resume Home Health with [facility] (RN/PT/OT). She states that she goes to [facility] in [place]. Functional Status Uuic[id number] statusPatient at [facility] Work Phone: [facility] Mental Status Scxq[id number] functionCognitive Status [facility]: Cognitive functionCognitive functioning was normal Cognitive function finding (finding)[facility] Clinical Notes 04-12-2019 to 01-01-2025 Note Date & [id number] Nurse Note* Donna Napoles RN - 01/01/2025 3:55 PM EDT PTN called and stated that transportation is now being delayed d/t a crew shuffle and will be in approximately 60-90 minutes now. [facility]10-03-[facility] Nurse Note* Donna Napoles [...] patient. Report was called to Leena Blake [phone] and given to Marquita. Requested to have CRF faxed to [phone]. * Corrine Mcintosh RN - 01/01/2025 12:04 AM EDT Dowel Machine Operator in to talk to patient about [...] and patient refused to have that done. Dowel Machine Operator explained to patient why all were [...] Pt continues to refuse. documented in this encounterUniversity [facility] Nurse Note* Donna Napoles [...] patient. Report was called to Leena Blake [phone] and given to Marquita. Requested to have CRF faxed to [phone]. [facility]10-03-[facility]25 Plan of care note* [...] on patient's door 9. Provide patient/ patient credit resolution representative with isolation education. Outcome: Completed Problem: [...] supplement as ordered 13. Collaborate with clinical ribbing machine operator 14. Include patient/ patient's credit resolution representative in decisions related to nutrition Outcome: [...] Description: INTERVENTIONS: 1. Encourage patient or legal credit resolution representative to report early pain and ask [...] per policy 9. Teach patient or legal credit resolution representative interventions for comforting Outcome: Completed Problem: [...] at the bedside 7. Instruct patient/ patient credit resolution representative about use of safety devices 8. Include patient/ patient credit resolution representative in decisions related to safety Outcome: [...] hygiene technique. 7. Identify and instruct patient/patient credit resolution representative in use of appropriate isolation precautionsfor identified infection/symptoms. 8. Provide and discuss with patient/patient credit resolution representative on educational MDRO sheet. 9. Encourage and monitor nutritional status daily and consult ribbing machine operator if indicated. 10. Implement neutropenic guidelines as needed. Outcome: Completed Problem: Knowledge Deficit Goal: Patient/patient credit resolution representative demonstrates understanding of disease process, treatment [...] Score of =/> 25 or indicated by [facility] Assessment Goal: Patient should be free from fall Description: Interventions: 1. [place] to environment 2. Hourly rounds addressing the [...] non-skid footwear 11. Teach patient and patient credit resolution representative to maintain environment for safety and [...] (cane, walker) within reach 19. Request patient credit resolution representative bring adaptive equipment/mobility aids from home or obtain and provide as needed 20. Consult pharmacy regarding effects of med's affecting mobility, cognition, and alternatives 21. Obtain physician order for PT if risk factors associated with mobility are present 22. Obtain physician order for OT as appropriate 23. Utilize diversional activities 24. Educate patient and patient credit resolution representative how to maintain a safe environment during visitationtimes (notify nurse prior to leaving bedside) 25. Consider appropriateness of medical or non-medical records receptionist 26. Set up voiding schedule as appropriate [...] Handoff to next level of care provider (rn critical care, PCP, home care). 5. Complete follow [...] Discharge Time-Out or Discharge Final-Check. Outcome: Completed [facility] [id number] Miscellaneous Notes* Plan of Care - Donna [...] on patient's door 9. Provide patient/ patient credit resolution representative with isolation education. Outcome: Completed Problem: [...] supplement as ordered 13. Collaborate with clinical ribbing machine operator 14. Include patient/ patient's credit resolution representative in decisions related to nutrition Outcome: [...] Description: INTERVENTIONS: 1. Encourage patient or legal credit resolution representative to report early pain and ask [...] per policy 9. Teach patient or legal credit resolution representative interventions for comforting Outcome: Completed Problem: [...] at the bedside 7. Instruct patient/ patient credit resolution representative about use of safety devices 8. Include patient/ patient credit resolution representative in decisions related to safety Outcome: [...] hygiene technique. 7. Identify and instruct patient/patient credit resolution representative in use of appropriate isolation precautionsfor identified infection/symptoms. 8. Provide and discuss with patient/patient credit resolution representative on educational MDRO sheet. 9. Encourage and monitor nutritional status daily and consult ribbing machine operator if indicated. 10. Implement neutropenic guidelines as needed. Outcome: Completed Problem: Knowledge Deficit Goal: Patient/patient credit resolution representative demonstrates understanding of disease process, treatment [...] be free from fall Description: Interventions: 1. [place] to environment 2. Hourly rounds addressing the [...] non-skid footwear 11. Teach patient and patient credit resolution representative to maintain environment for safety and [...] (cane, walker) within reach 19. Request patient credit resolution representative bring adaptive equipment/mobility aids from home or obtain and provide as needed 20. Consult pharmacy regarding effects of med's affecting mobility, cognition, and alternatives 21. Obtain physician order for PT if risk factors associated with mobility are present 22. Obtain physician order for OT as appropriate 23. Utilize diversional activities 24. Educate patient and patient credit resolution representative how to maintain a safe environment during visitationtimes (notify nurse prior to leaving bedside) 25. Consider appropriateness of medical or non-medical records receptionist 26. Set up voiding schedule as appropriate [...] Handoff to next level of care provider (rn critical care, PCP, home care). 5. Complete follow [...] on patient's door 9. Provide patient/ patient credit resolution representative with isolation education. Outcome: Progressing Note: [...] supplement as ordered 13. Collaborate with clinical ribbing machine operator 14. Include patient/ patient's credit resolution representative in decisions related to nutrition Outcome: [...] Description: INTERVENTIONS: 1. Encourage patient or legal credit resolution representative to report early pain and ask [...] per policy 9. Teach patient or legal credit resolution representative interventions for comforting Outcome: Progressing Note: [...] at the bedside 7. Instruct patient/ patient credit resolution representative about use of safety devices 8. Include patient/ patient credit resolution representative in decisions related to safety Outcome: [...] hygiene technique. 7. Identify and instruct patient/patient credit resolution representative in use of appropriate isolation precautionsfor identified infection/symptoms. 8. Provide and discuss with patient/patient credit resolution representative on educational MDRO sheet. 9. Encourage and monitor nutritional status daily and consult ribbing machine operator if indicated. 10. Implement neutropenic guidelines as needed. Outcome: Progressing Note: Evaluation of progress towards goal: IV antibiotics continues for infection. Tolerating meds.Vitals within normal limits Problem: Knowledge Deficit Goal: Patient/patient credit resolution representative demonstrates understanding of disease process, treatment [...] towards goal: Patient plans on going to [facility] upon discharge. * Discharge Planning Note - Jodee Cook RN - 12/31/2024 12:08 PM EDT 12/31/24 9637 Patient Information Initial Pre-Hospitalization Assessment Completed? In-Progress In-Progress Reason: Attempted assessment: patient unable to participate/Contacts unavailable (patient sleeping, unable to wake up. RN notified. CN called patient's son, no answer. Unable to leave voicemail. CN called [facility], no answer. Voicemail left.) Support System Family Members Discharge Planning Type of Residence longterm Care Facility Name [facility] [address] [place] [address] Home Care Services No Income Information Income Information Retired/Pension/Social Security Services Requested Patient expects to be discharged to: SNF Discharge Disposition SNF SNF Name [facility] [address] [place] [address] DISCHARGE PLANNING NOTE CN attempted to complete assessment w/ paitent at bedside. Patient sleeping deeply, unable to arouse. RN notified. CN called patient's son, no answer. Unable to leave voicemail. CN called [facility], no answer. Voicemail left. Plan: Return to [facility]. Facility called, voicemail left. Will clarify patient's level of care. [facility] [address] [place] [address] - Jodee Cook RN 12/31/24 12:12 PM Update: Dowel Machine Operator spoke w/ [facility]. Patient is a long-term [...] roll. Pt tolerated well. documented in this encounterUniversity [facility] Hospital course Narrative* Nat Reynolds MD - 01/01/2025 12:00 PM EDT Images from the original note were not included. [facility] INTERNAL MEDICINE [facility] [address] [facility] [id number] Hospital Medicine Discharge Summary Patient: Jonatan Olivarez Date of : 1960 Room: Encounter date: 01/01/25 Hospital Day: 3 DATE OF ADMISSION: 12/30/2024 DATE OF DISCHARGE:01/01/2025 DISCHARGE DIAGNOSES Principal Problem: Acute cystitis without hematuria Active Problems: Hypothyroidism Tobacco abuse COPD with acute exacerbation ([facility]) Hyperlipidemia Primary hypertension Type 2 diabetes mellitus with diabetic foot infection ([facility]) Osteomyelitis of left foot ([facility]) A-fib ([facility]) Controlled type 2 diabetes mellitus with diabetic peripheral angiopathy and gangrene, without long-term current use of insulin ([facility]) CONSULTANTS none PCP: Osmar Rodriguez MD PROCEDURES none HOSPITAL COURSE SUMMARY Jonatan Olivarez is a 64 y.o. female who presented with hypoxia. It is noted that patient was 72% on 2 L upon arrival from [facility]. Per staff her readings had been from [...] d/c Hypokalemia Potassium 2.8 on admission- 3.5 conveyor monitor Daily supplement Is on lasix 20 [...] Abnormality Status --------- ------ Troponin I, High Sensiti...[[id number]] Normal Final result Troponin I, High Sensiti...[[id number]] Normal Final result Please view results for [...] Range Extra Tube Auto Resulted Extra Urine [place] Collection Time: 12/30/24 5:08 PM Specimen: Urine, Clean Catch Midstream Result Value Ref Range Extra Tube Auto Resulted POCT Nursing Urine Macroscopic UA Collection Time: 12/30/24 5:08 PM Result Value Ref Range POC Urine Specific [place] 1.010 1.010, 1.015, 1.020, 1.025 POC Urine [...] Procedure Abnormality Status --------- ------ Light Blue Top[[id number]] Final result Please view results for these [...] Prominent atherosclerotic calcifications in the aorta. Severe sitka coronary artery calcifications. There is prominence of [...] the first and second toes predominantly. Workst ation:[id number] Finalized by Josiah Ken MD on 12/05/2024 2:38 PM DISCHARGE INSTRUCTION Disposition: care home facility Condition: Stable Activity: activity as tolerated Diet: Adult diet Regular Texture; Consistent Carb 255 grams (2000 kcal); No Added Salt (3-4 gm Sodium); Fluid Restriction 2000 mL Adult diet Follow up: Osmar Rodriguez MD within 7-14 days. Labs/Imaging/Pathology: Pending Labs Order Current Status POCT Nursing Urine Macroscopic UA Collected (12/30/24 4439) Discharge Medications: Medication List START taking these [...] the morning. Pro-stat oral lqiuid ( amino wysts-duevugp-wdhehdezzca) -give 30 ml po in the morning [...] this patient. YOVANY Tang 01/01/2025 12:00 PM [facility] Internal Medicine 7AM-7PM & 7PM-7AM: [...] noted. NAT REYNOLDS MD documented in this encounterMercy [facility] HospitalO[facility] [id number] Nurse Note* Corrine Mcintosh RN - 01/01/2025 12:04 AM EDT Dowel Machine Operator in to talk to patient about [...] and patient refused to have that done. Dowel Machine Operator explained to patient why all were ordered and patient continues to decline to have them done. [facility]10-02-[facility] Plan of care note* [...] on patient's door 9. Provide patient/ patient credit resolution representative with isolation education. Outcome: Progressing Note: [...] supplement as ordered 13. Collaborate with clinical ribbing machine operator 14. Include patient/ patient's credit resolution representative in decisions related to nutrition Outcome: [...] Description: INTERVENTIONS: 1. Encourage patient or legal credit resolution representative to report early pain and ask [...] per policy 9. Teach patient or legal credit resolution representative interventions for comforting Outcome: Progressing Note: [...] at the bedside 7. Instruct patient/ patient credit resolution representative about use of safety devices 8. Include patient/ patient credit resolution representative in decisions related to safety Outcome: [...] hygiene technique. 7. Identify and instruct patient/patient credit resolution representative in use of appropriate isolation precautionsfor identified infection/symptoms. 8. Provide and discuss with patient/patient credit resolution representative on educational MDRO sheet. 9. Encourage and monitor nutritional status daily and consult ribbing machine operator if indicated. 10. Implement neutropenic guidelines as needed. Outcome: Progressing Note: Evaluation of progress towards goal: IV antibiotics continues for infection. Tolerating meds.Vitals within normal limits Problem: Knowledge Deficit Goal: Patient/patient credit resolution representative demonstrates understanding of disease process, treatment [...] towards goal: Patient plans on going to [facility] upon discharge. [facility]10-02-2025 Progress note* Discharge Planning Note - Jodee Cook RN - 12/31/2024 12:08 PM EDT 12/31/24 9523 Patient Information Initial Pre-Hospitalization Assessment Completed? In-Progress In-Progress Reason: Attempted assessment: patient unable to participate/Contacts unavailable (patient sleeping, unable to wake up. RN notified. CN called patient's son, no answer. Unable to leave voicemail. CN called [facility], no answer. Voicemail left.) Support System Family Members Discharge Planning Type of Residence longterm Care Facility Name [facility] [address] [place] [address] Home Care Services No Income Information Income Information Retired/Pension/Social Security Services Requested Patient expects to be discharged to: SNF Discharge Disposition SNF SNF Name [facility] [address] [place] [address] DISCHARGE PLANNING NOTE CN attempted to complete assessment w/ paitent at bedside. Patient sleeping deeply, unable to arouse. RN notified. CN called patient's son, no answer. Unable to leave voicemail. CN called [facility], no answer. Voicemail left. Plan: Return to [facility]. Facility called, voicemail left. Will clarify patient's level of care. [facility] [address] [place] [address] - Jodee Cook RN 12/31/24 12:12 PM Update: Dowel Machine Operator spoke w/ [facility]. Patient is a long-term resident at facility and can return once medically ready. - Jodee Cook RN 12/31/24 2:21 PM [facility]10-[facility] Plan of care note* [...] 12/31/2024 1056 by TALA Rangel Outcome: Completed [facility]10-[facility] History and physical note* Nat Reynolds MD - 12/31/2024 9:00 AM EDT Images from the original note were not included. [facility] INTERNAL MEDICINE [facility] [address] [facility] [phone] Hospital Medicine History & Physical Patient: Jonatan Olivarez Date of : 1960 Room: [facility] PCP: Osmar Rodriguez MD Admission date: 12/30/2024 3:02 PM Encounter date: 12/31/24 Hospital Day: 2 SUBJECTIVE Jonatan Olivarez is a 64 y.o. female who presents with hypoxia. It is noted that patient was 72% on 2 L upon arrival from [facility]. Per staff her readings had been from [...] needed for wheezing. 03/18/24 Yes Kellen Shah APRN-DISTRIBUTED GENERATION PROJECT MANAGER amino acids-protein hydrolys 17-100 gram-kcal/30 mL liquid Take 30 mL by mouth in the morning. Pro-stat oral lqiuid ( amino hezrt-dcyzvas-gjypqanicfx) -give 30 ml po in the morning [...] in the morning. 01/18/24 Yes Corie Muller APRN-DISTRIBUTED GENERATION PROJECT MANAGER benzonatate (TESSALON PERLES) 200 mg capsule Take [...] needed for itching. 12/11/24 Yes Helio Giles APRN-DISTRIBUTED GENERATION PROJECT MANAGER docusate sodium (COLACE) 100 mg capsule Take 1 capsule (100 mg total) by mouth as needed in the morning and 1 capsule (100 mg total) as needed in the evening for constipation. 02/06/24 Yes Not In System Ref Prov ferrous sulfate 325 (65 FE) MG tablet Take 1 tablet (325 mg total) by mouth in the morning. 12/17/24Yes Alondra Amado APRN-DISTRIBUTED GENERATION PROJECT MANAGER furosemide (LASIX) 20 mg tablet Take 1 [...] and or wheezing. 10/23/22 Yes Fredy Mcclain APRN-DISTRIBUTED GENERATION PROJECT MANAGER levoFLOXacin (LEVAQUIN) 750 mg tablet Take 1 [...] needed for opioid reversal. 12/17/24 Alondra Amado APRN-DISTRIBUTED GENERATION PROJECT MANAGER Code Status: Full Code Past Medical History: Patient has a past medical history of ASHD (arteriosclerotic heart disease), Atherosclerosis of both carotid arteries, CAD S/P percutaneous coronary angioplasty, Claudication in peripheral vascular disease, COPD (chronic obstructive pulmonary disease) ([facility]), Dental disease, Diabetes mellitus ([facility]), Diabetes mellitus type 2, controlled ([facility]), Disease of thyroid gland, Dizziness, Emphysema of lung ([facility]), Hypertension, Hypothyroidism, Lower GI bleed (01/09/2024), Stable [...] Abnormality Status --------- ------ Troponin I, High Sensiti...[[id number]] Normal Final result Troponin I, High Sensiti...[[id number]] Normal Final result Please view results for [...] Range Extra Tube Auto Resulted Extra Urine [place] Collection Time: 12/30/24 5:08 PM Specimen: Urine, Clean Catch Midstream Result Value Ref Range Extra Tube Auto Resulted POCT Nursing Urine Macroscopic UA Collection Time: 12/30/24 5:08 PM Result Value Ref Range POC Urine Specific [place] 1.010 1.010, 1.015, 1.020, 1.025 POC Urine [...] Prominent atherosclerotic calcifications in the aorta. Severe sitka coronary artery calcifications. There is prominence of [...] the first and second toes predominantly. Workst ation:[id number] Finalized by Josiah Ken MD on 12/05/2024 2:38 PM HOSPITAL PROBLEM LIST Principal Problem: Acute cystitis without hematuria Active Problems: Hypothyroidism Tobacco abuse COPD with acute exacerbation ([facility]) Hyperlipidemia Primary hypertension Type 2 diabetes mellitus with diabetic foot infection ([facility]) Osteomyelitis of left foot ([facility]) A-fib ([facility]) Controlled type 2 diabetes mellitus with diabetic peripheral angiopathy and gangrene, without long-term current use of insulin ([facility]) ASSESSMENT & PLAN Acute hypoxic respiratory failure-COPD [...] Rocephin Hypokalemia Potassium 2.8 on admission- 3.1 conveyor monitor Daily supplement Is on lasix 20 [...] above, unless otherwise noted. NAT REYNOLDS MD [facility]10-02-2025 History and physical note* Nat Reynolds MD - 12/31/2024 9:00 AM EDT Images from the original note were not included. [facility] INTERNAL MEDICINE [address] [phone] Hospital Medicine History & Physical Patient: Jonatan Olivarez Date of : 1960 Room: PCP: Osmar Rodriguez MD Admission date: 12/30/2024 3:02 PM Encounter date: 12/31/24 Hospital Day: 2 SUBJECTIVE Jonatan Olivarez is a 64 y.o. female who presents with hypoxia. It is noted that patient was 72% on 2 L upon arrival from [facility]. Per staff her readings had been from [...] the morning. Pro-stat oral lqiuid ( amino xcgup-zepgpim-vvrtczrloei) -give 30 ml po in the morning [...] vascular disease, COPD (chronic obstructive pulmonary disease) ([facility]), Dental disease, Diabetes mellitus ( [facility]), Diabetes mellitus type 2, controlled ([facility]), Disease of thyroid gland, Dizziness, Emphysema of lung ([facility]), Hypertension, Hypothyroidism, Lower GI bleed (01/09/2024), Stable [...] Abnormality Status --------- ------ Troponin I, High Sensiti...[[id number]] Normal Final result Troponin I, High Sensiti...[[id number]] Normal Final result Please view results for [...] Range Extra Tube Auto Resulted Extra Urine [place] Collection Time: 12/30/24 5:08 PM Specimen: Urine, Clean Catch Midstream Result Value Ref Range Extra Tube Auto Resulted POCT Nursing Urine Macroscopic UA Collection Time: 12/30/24 5:08 PM Result Value Ref Range POC Urine Specific [place] 1.010 1.010, 1.015, 1.020, 1.025 POC Urine [...] Prominent atherosclerotic calcifications in the aorta. Severe sitka coronary artery calcifications. There is prominence of [...] acute fracture or dislocation. Finalized by Jt Mwcilliams MD on 12/05/2024 4:41 PM X-ray foot [...] the first and second toes predominantly. Workst ation:[id number] Finalized by Josiah Ken MD on 12/05/2024 2:38 PM HOSPITAL PROBLEM LIST Principal Problem: Acute cystitis without hematuria Active Problems: Hypothyroidism Tobacco abuse COPD with acute exacerbation ([facility]) Hyperlipidemia Primary hypertension Type 2 diabetes mellitus with diabetic foot infection ([facility]) Osteomyelitis of left foot ([facility]) A-fib ([facility]) Controlled type 2 diabetes mellitus with diabetic peripheral angiopathy and gangrene, without long-term current use of insulin ([facility]) ASSESSMENT & PLAN Acute hypoxic respiratory failure-COPD [...] Rocephin Hypokalemia Potassium 2.8 on admission- 3.1 conveyor monitor Daily supplement Is on lasix 20 [...] noted. NAT REYNOLDS MD documented in this encounterUniversity Hospitals [facility]10-02-2025 Nurse Note* Anushka Zimmerman RN - 12/31/2024 6:25 AM EDT Pt uncooperative with taking am medications. Refusing to take all of her potassium replacement, pt took 30 of the 50meq needed for replacement per protocol. Pt educated on importance of taking potassium and risks of not taking potassium. Pt continues to refuse. [facility]10-01-[facility]25 Progress note* Wound Care [...] wrapped w/ gauze roll. Pt tolerated well. [facility]10-01-2025 Progress note* Wound Care [...] wrapped w/ gauze roll. Pt tolerated well. [facility]10-01-[facility]25 Physician Emergency department Note* Kellen HILDA Shah-FABIENNE - 12/30/2024 3:09 PM EDT Images from the original note were not included. [facility] Pt Name: Jonatan Olivarez Birthdate: 1960 Chief Complaint: Chief Complaint Patient presents with Shortness of Breath EMS reports that pt was 72% 2L NC upon arrival at nursing facility. History of Present Illness: Savita Olivarez is a 64-year-old female that presents to ED via EMS from [facility] with complaint of hypoxia. Staff state that [...] History provided by: Patient and EMS personnel senior web services developer used: No Past Medical History: Past Medical History: Diagnosis Date ASHD (arteriosclerotic heart disease) Atherosclerosis of both carotid arteries CAD S/P percutaneous coronary angioplasty Claudication in peripheral vascular disease COPD (chronic obstructive pulmonary disease) ([facility]) Dental disease Diabetes mellitus ([facility]) Diabetes mellitus type 2, controlled ([facility]) Disease of thyroid gland Dizziness Emphysema of lung ([facility]) Hypertension Hypothyroidism Lower GI bleed 01/09/2024 Stable angina Ulcer left great toe Ventral hernia Visual impairment Past Surgical History: Past Surgical History: Procedure Laterality Date AORTO-BIFEMORAL BYPASS, VENTRAL HERNIA REPAIR, LEFT FEMORAL TO [id number] POPLITEAL BYPASS [id number] PTFE PROPATEN GORE VASCULAR GRAFT, AND COMPLETION ANGIOGRAM OF LEFT LOWER EXTREMITY Left 06/03/2017 Performed by Rebeca Johnson DO at [facility] CARDIAC CATHETERIZATION Cardiac catheterization N/A 09/25/2022 Performed by Bonnie Toledo MD at [facility] CARDIAC CATH LABS CARDIAC SURGERY 2001 3 stents CHOLECYSTECTOMY Coronary angiogram and left ventricular gram/pressure N/A 09/25/2022 Performed by Bonnie Toledo MD at [facility] CARDIAC CATH LABS ESOPHAGOGASTRODUODENOSCOPY DIAGNOSTIC N/A 01/17/2024 Performed by Jazmine Gutierrez MD at [facility] ESOPHAGOGASTRODUODENOSCOPY DIAGNOSTIC N/A 01/10/2024 Performed by Renuka Angeles MD at [facility] FEMORAL BYPASS 2009 HYSTERECTOMY 2008 abdominal LYSIS RECHECK AND REMOVAL EXTREMITY UPPER Right 04/18/2024 Performed by Rebeca Johnson MD at [facility] SPECIAL PROC RIGHT BRACHIAL ACCESS, LEFT FEMORAL ANGIOGRAM, LYSIS CATHETER PLACEMENT Left 04/17/2024 Performed by Rebeca Johnson DO at [facility] SPECIAL PROC VASCULAR SURGERY 2007 blood clot [...] - Unmet Transportation Needs (10/22/2024) Received from [facility] - Transportation Lack of Transportation (Medical): Yes Lack of Transportation (Non-Medical): Yes Physical Activity: Inactive (10/22/2022) Exercise Vital Sign Days of Exercise per Week: 0 days Minutes of Exercise per Session: 0 min Stress: No Stress Concern Present (10/22/2022) [place] [employer] - Occupational Stress Questionnaire Feeling of Stress : Not at all Social Connections: Socially Isolated (10/22/2022) Social Connection and Isolation Panel [NHANES] Frequency of Communication with Friends and Family: More than three times a week Frequency of Social Gatherings with Friends and Family: More than three times a week Attends Restoration Services: Never Active Member of Clubs or [...] above service. IDr. Pizano personally performed a [id number] diagnostic evaluation on this patient. I personally [...] Cooper 12/30/24 1551 YOVANY Rebolledo 12/31/24 2126 [facility]10-01-2025 Emergency department Note* ELI [...] that presents to ED via EMS from [facility] with complaint of hypoxia. Staff state that [...] History provided by: Patient and EMS personnel senior web services developer used: No Past Medical History: Past Medical History: Diagnosis Date ASHD (arteriosclerotic heart disease) Atherosclerosis of both carotid arteries CAD S/P percutaneous coronary angioplasty Claudication in peripheral vascular disease COPD (chronic obstructive pulmonary disease) ([facility]) Dental disease Diabetes mellitus ([facility]) Diabetes mellitus type 2, controlled ([facility]) Disease of thyroid gland Dizziness Emphysema of lung ([facility]) Hypertension Hypothyroidism Lower GI bleed 01/09/2024 Stable angina Ulcer left great toe Ventral hernia Visual impairment Past Surgical History: Past Surgical History: Procedure Laterality Date AORTO-BIFEMORAL BYPASS, VENTRAL HERNIA REPAIR, LEFT FEMORAL TO [id number] POPLITEAL BYPASS [id number] PTFE PROPATEN GORE VASCULAR GRAFT, AND COMPLETION ANGIOGRAM OF LEFT LOWER EXTREMITY Left 06/03/2017 Performed by Rebeca Johnson DO at [facility] CARD[facility]AC CATHETERIZATION Cardiac catheterization N/A 09/25/2022 Performed by Bonnie Toledo MD at [facility] CARDIAC CATH LABS CARDIAC SURGERY 2000 3 stents CHOLECYSTECTOMY Coronary angiogram and left ventricular gram/pressure N/A 09/25/2022 Performed by Bonnie Toledo MD at [facility] CARDIAC CATH LABS ESOPHAGOGASTRODUODENOSCOPY DIAGNOSTIC N/A 01/17/2024 Performed by Jazmine Gutierrez MD at [facility] ESOPHAGOGASTRODUODENOSCOPY DIAGNOSTIC N/A 01/10/2024 Performed by Renuka Angeles MD at [facility] FEMORAL BYPASS 2010 HYSTERECTOMY 2008 abdominal LYSIS RECHECK AND REMOVAL EXTREMITY UPPER Right 04/18/2024 Performed by Rebeca Johnson MD at [facility] SPECIAL PROC RIGHT BRACHIAL ACCESS, LEFT FEMORAL ANGIOGRAM, LYSIS CATHETER PLACEMENT Left 04/17/2024 Performed by Rebeca Johnson DO at [facility] SPECIAL PROC VASCULAR SURGERY 2008 blood clot [...] - Unmet Transportation Needs (10/22/2024) Received from [facility] - Transportation Lack of Transportation (Medical): Yes Lack of Transportation (Non-Medical): Yes Physical Activity: Inactive (10/22/2022) Exercise Vital Sign Days of Exercise per Week: 0 days Minutes of Exercise per Session: 0 min Stress: No Stress Concern Present (10/22/2022) [place] [employer] Occupational Health - Occupational Stress Questionnaire Feeling of Stress : Not at all Social Connections: Socially Isolated (10/22/2022) Social Connection and Isolation Panel [NHANES] Frequency of Communication with Friends and Family: More than three times a week Frequency of Social Gatherings with Friends and Family: More than three times a week Attends Restoration Services: Never Active Member of Clubs or [...] service. I, Dr. Pizano personally performed a [id number]-ls-[id number] diagnostic evaluation on this patient. I personally [...] 1551 YOVANY Rebolledo 12/31/246 documented in this encounterUniversity Hospitals [facility] Center09-22-2025 Telephone encounter Note* Telephone Encounter - Vik Vargas NP - 12/21/2024 11:56 AM EDT Requested Prescriptions Signed Prescriptions Disp Refills oxyCODONE-acetaminophen (Percocet) 5-325 MG tablet 120 tablet 0 Sig: Take 1 tablet by mouth every 6 (six) hours if needed for severe pain or moderate pain Authorizing Provider: VIK VARGAS [id number] Miscellaneous Notes* Telephone Encounter - Vik Vargas NP - 12/21/2024 11:56 AM EDT Requested Prescriptions Signed Prescriptions Disp Refills oxyCODONE-acetaminophen (Percocet) 5-325 MG tablet 120 tablet 0 Sig: Take 1 tablet by mouth every 6 (six) hours if needed for severe pain or moderate pain Authorizing Provider: VIK VARGAS documented in this encounterCox [id number] History of Present illness Narrative* Zach Saravia, [...] and IV antibiotic therapy. Recently admitted through [facility] ED with developing infection involving multiple [...] care of this patient. documented in this encounterUniversity Hospitals [facility]wood [facility] Center08-21-2025 Hospital Discharge instructions* Discharge Instructions* Filomena De La Garza, HILDA - DISTRIBUTED GENERATION PROJECT MANAGER - 11/19/2024 4:14 PM EDT Additional medications as directed, you need to call both your primary care and wound care clinic for further evaluation and treatment. * Attachments The following attachments cannot be sent through Care Everywhere. * Hip Pain (Guyanese) * Chronic Wound: Healing: General Info (Guyanese) documented in this encounterBon [facility] History of Present illness Narrative* Erin Stevens RN - 08/17/2024 12:12 PM EDT Patient leaving floor at this time via [facility] via wheelchair. Belongings sent with patient. * Erin Stevens RN - 08/17/2024 11:28 AM EDT Report called to nurse at [facility] at this time. * Erin Stevens [...] and assessment were completed at this time. Dowel Machine Operator walked patient through the medications that would be administered tonight and encouraged patient to ask questions about the medications and therapies. Patient is requesting all of her night medications be given at 1999 including percocet andAmbien. Patient ambulated to the bathroom and back to bed and narrative writer put iodine on her foot wounds [...] Rodriguez MD - 08/16/2024 6:53 AM EDT [address] , [place], [place], [address] Progress Note Date: 08/16/2024 Patient name: Jonatan [...] artery disease), COPD (chronic obstructive pulmonary disease) ([facility]), Depression, Diabetes mellitus ([facility]), Edema, H/O cardiac catheterization, H/O [...] Shortness of Breath 12/31/22 Yes Patricia Oh, DOCUMENT CLERK - DISTRIBUTED GENERATION PROJECT MANAGER FLOVENT HFA 44 MCG/ACT inhaler Inhale 2 puffs into the lungs 2 times daily 12/18/22 Yes Osmar Rodriguez MD metFORMIN (GLUCOPHAGE) 500 MG tablet Take 1 tablet by mouth 2 times daily (with meals) Patient not taking: Reported on 08/12/2024 08/10/24 Oliva Dunlap, DOCUMENT CLERK - DISTRIBUTED GENERATION PROJECT MANAGER docusate sodium (COLACE) 100 MG capsule Take [...] Rodriguez MD vitamin D (ERGOCALCIFEROL) 1.25 MG (98008 UT) CAPS capsule take 1 capsule by mouth every week Patient not taking: Reported on 08/12/2024 10/22/22 Osmar Rodriguez MD Incontinence Supply Disposable (Retrevo INCONTINENCE PADS) MISC 1 each by Does [...] sores have betadine DIAGNOSTICS: Laboratory Testing: See [facility] EMR for lab data Recent [...] Oral 4x Daily Oliva Dunlap APRN - DISTRIBUTED GENERATION PROJECT MANAGER 750mg at 08/15/241921 benzonatate (TESSALON) capsule 200 [...] this chart was generated using voice recognition BugBusteron dictation software. Although every effort was made to ensure the accuracy of this automated supervisor pipe finishing, some errors in supervisor pipe finishing may have occurred. Osmar Rodriguez MD 08/16/2024 6:54 AM * Yanira Aguirre RN - 08/16/2024 5:41 AM EDT Patient declined having her water jug refilled. She told narrative writer she doesn't drink water. Dowel Machine Operator refilled patient's coffee cup per request. * Yanira Aguirre RN - 08/15/2024 9:10 PM EDT Dowel Machine Operator used saline to remove the gauze on patient's feet. Iodine was put on all of her foot wounds and they were left open to air, per order. * Yanira Aguirre RN - 08/15/2024 7:22 PM EDT Vitals and assessment were completed at this time. Dowel Machine Operator walked patient through the medications that [...] from the original note were not included. [address] , [place], [place], [address] Progress Note Date: 08/15/2024 Patient name: Jonatan [...] artery disease), COPD (chronic obstructive pulmonary disease) ([facility]), Depression, Diabetes mellitus ([facility]), Edema, H/O cardiac catheterization, H/O [...] by mouth every morning 06/24/24 Yes Osmar Rodriugez MD ammonium lactate (LAC-HYDRIN) 12 % lotion [...] Rodriguez MD vitamin D (ERGOCALCIFEROL) 1.25 MG (27842 UT) CAPS capsule take 1 capsule by mouth every week Patient not taking: Reported on 08/12/2024 10/22/22 Osmar Rodriguez MD Incontinence Supply Disposable (Retrevo INCONTINENCE PADS) MISC 1 each by Does [...] sores have betadine DIAGNOSTICS: Laboratory Testing: See [facility] EMR for lab data No [...] 100 mg 100 mg Oral BID PRN Oilva Dunlap APRN - CNP pantoprazole (PROTONIX) tablet [...] times per day Oliva Dunlap APRN - DISTRIBUTED GENERATION PROJECT MANAGER 10 mL at 08/14/242206 sodium chloride flush [...] mg 4 mg IntraVENous Q6H PRN Oliva Dunlpa APRN - CNP polyethylene glycol (GLYCOLAX) packet [...] this chart was generated using voice recognition BugBusteron dictation software. Although every effort was made to ensure the accuracy of this automated supervisor pipe finishing, some errors in supervisor pipe finishing may have occurred. Osmar Rodriguez MD 08/15/2024 6:28 AM * Kimberly Valenzuela RN - 08/15/2024 4:30 AM EDT Pt took dressings off of feet several times during the night. Dowel Machine Operator put betadine on the sores and [...] NL LV COPD (chronic obstructive pulmonary disease) ([facility]) Depression Diabetes mellitus ([facility]) Edema chevy legs feet H/O cardiac catheterization 01/01/2011 H/O echocardiogram 09/03/2019 EF 65% evidence of mild grade I diastolic dysfunction seen Hernia of abdominal wall 2012 History of cardiac cath 03/17/2020 [facility]/Dr. Stephens/Left Radial History of cardiac [...] Value Date/Time PHART 7.355 12/13/2022 05:39 AM [id number] 46.8 12/13/2022 05:39 AM PO2ART 57.3 12/13/2022 05:39 AM K6QWQBOH 88.5 12/13/2022 05:39 AM RCR4GPR 25.5 12/13/2022 05:39 AM PBEA NOT REPORTED [...] Vivar PTA - 08/14/2024 1:56 PM EDT [facility] Inpatient/Observation/Outpatient Rehabilitation Date: 08/14/2024 Patient [...] does not require skilled services due to: Therapist/Ophthalmology Technician will attempt to see this patient, at [...] 08/14/2024 10:35 AM EDT Physical Therapy Facility/Department: [facility] Daily Treatment Note NAME: Jonatan [...] 2L oxygen. Aware of possible transfer to [facility] depending on insurance. She is asking [...] treatment Condition is stable Treatment plan: Appreciate vp digital marketing social media and crm-discharge planning-will need SNF PT/OT Up with assistance Imaging: no further imaging studies ordered today Medications: Medications not indicated at this time Medication Monitoring / High Risk Medications: none Chronic wounds of Bilateral Feet Condition is a chronic stable condition Treatment plan: Cancel consult for Dr Newman-out [facility]. Will continue with his POC at this time Scheduled with Dr Colmenares next week, if still here will consult for evaluation Heels off the bed Wound Care: Betadine to wounds daily She is Diabetic -- Refuses to take medications prescribed Imaging: no further imaging studies ordered today Medications: Continue Augmentin Continue Metformin-REFUSES Nutrition status: at risk for malnutrition Coagulant Dipper consult initiated I/O Daily weight Monitor Daily [...] Accumulation Location: Extremities (08/13/24736) Acute Illness - Registered Nursing Professor Strength: Not Performed (08/13/24736) Acute Illness - [...] status: Full Code Disposition: Discharge plan is Halfway Facility [facility] Advanced Care Planning documentation: [x] [...] from the original note were not included. [address] [place], [place], [address] Attestation Patient: Jonatan Olivarez Date of Admission: 08/12/2024 10:20 AM Hospital Day # 2 Date of Evaluation: 08/14/2024 I personally evaluated and examined the patient [id number] in conjunction with the PA/SALES RECORD CLERK and agree with the management and dispostition of the patient. Please see the PA/SALES RECORD CLERK's note for full details.My sims findings are: [...] with the plan as outlined in the SALES RECORD CLERK/PA's note Disposition: Discharge plan is pending Please note that this chart was generated using voice recognition BugBusteron dictation software. Although every effort was made to ensure the accuracy of this automated supervisor pipe finishing, some errors in supervisor pipe finishing may have occurred. Osmar Rodriguez MD 08/14/2024 1:10 PM * Rosalinda Adame RN - 08/14/2024 1:53 AM EDT Pt yelling out of room for help. Dowel Machine Operator entered room, pt in bed yelling at narrative writer about time my leonard champion call light is on the floor and nobody is coming to help me . Dowel Machine Operator showed pt the red button on the side of he bed in case this were to happen again. Pt understood. Dowel Machine Operator cleaned pt up at thistime, changed [...] Vivar PTA - 08/13/2024 3:19 PM EDT [facility] Inpatient/Observation/Outpatient Rehabilitation Date: 08/13/2024 Patient [...] does not require skilled services due to: Therapist/Ophthalmology Technician will attempt to see this patient, at our earliest opportunity. Erika Vivar, SHEET HANGER Date: 08/13/2024 Cosigned by Joanie Mireles PT at 08/13/2024 4:08 PM EDT * Bea Mireles, PERSONAL LINES SALES REP - 08/13/2024 12:47 PM EDT RESPIRATORY ASSESSMENT PROTOCOL Patient Name: oJnatan Phillips Diggs Room#: 0301/0301-01 : 1960 Admitting diagnosis: PVD [...] NL LV COPD (chronic obstructive pulmonary disease) ([facility]) Depression Diabetes mellitus ([facility]) Edema chevy legs feet H/O cardiac catheterization 01/01/2011 H/O echocardiogram 09/03/2019 EF 65% evidence of mild grade I diastolic dysfunction seen Hernia of abdominal wall 2012 History of cardiac cath 03/17/2020 [facility]/Dr. Stephens/Left Radial History of cardiac [...] Value Date/Time PHART 7.355 12/13/2022 05:39 AM NGQ1QWO 46.8 12/13/2022 05:39 AM PO2ART 57.3 12/13/2022 05:39 AM O4ICTZFW 88.5 12/13/2022 05:39 AM URX3QOE 25.5 12/13/2022 05:39 AM PBEA NOT REPORTED [...] ____Yes ____No ____Patient Refused * Kirsten Jackson [facility] - 08/13/2024 8:27 AM EDT Images from the original note were not included. [facility] Department of Pharmacy Pharmacy Renal Adjustment Note [...] - 79 ml/min. Thank you, Kirsten Jackson [facility],08/13/2024,8:26 AM * Rena Loya OT - 08/13/2024 8:10 AM EDT Occupational Therapy Facility/Department: [facility] Occupational Therapy Initial Assessment Name: Jonatan Olivarez : 1960 Date of Service: 08/13/2024 Discharge Recommendations: Continue to assess pending progress, Subacute/Halfway Facility, Home with assist PRN, Home with [...] artery disease), COPD (chronic obstructive pulmonary disease) ([facility]), Depression, Diabetes mellitus (HCC), Edema, [...] is a 63 y.o. female, admitted to [facility] post admitting diagnosis of PVD [...] Level of Assist for Transfers: Independent Active Inventory Management Specialist: No Patient's Inventory Management Specialist Info: son Additional Comments: Pt shares IADL's [...] 08/13/2024 7:38 AM EDT Physical Therapy Facility/Department: [facility] Physical Therapy Initial Assessment Name: [...] Level of Assist for Transfers: Independent Active Inventory Management Specialist: No Patient's Inventory Management Specialist Info: son Additional Comments: Pt shares IADL's [...] muscle mass loss Fluid Accumulation: Mild Extremities Registered Nursing Professor Strength: Not Performed Nutrition Assessment: Increased energy needs r/t acute injury or trauma, AEB multiple diabetic wounds on feet. History ofweight losses without many actual weights available. Used to be 150# but admits, years ago . Eating mostly once daily at home with use [place] 2 [place] [address] units vit D and may benefit from [...] Measures: Height: 154.9 cm (5' 1 ) [place] Body Weight (IBW): 105 lbs (48 kg) [...] Used for Energy Requirements: Current Energy (kcal/day): 4477-3542 (28-33) Weight Used for Protein Requirements: Current [...] Nutrition Supplement [address], JOE Contact: [phone] * Oliva Dunlap APRN - FABIENNE - [...] treatment Condition is stable Treatment plan: Appreciate vp digital marketing social media and crm-discharge planning-will need SNF PT/OT Up with assistance [...] Metformin-REFUSES Nutrition status: at risk for malnutrition Coagulant Dipper consult initiated I/O Daily weight Monitor Daily [...] status: Full Code Disposition: Discharge plan is Halfway Facility [facility] Advanced Care Planning documentation: [x] [...] MIPS PERFORMANCE] HILDA Cortes CNP , HILDA, SALES RECORD CLERK-C Hospitalist Medicine 08/13/2024, 6:54 AM Cosigned by Osmar Rodriguez MD at 08/13/2024 7:12 PM EDT Associated attestation - Osmar Rodriguez MD - 08/13/2024 7:12 PM EDT Images from the original note were not included. [address], [place], [place], [address] Attestation Patient: Jonatan Olivarez Date of Admission: 08/12/2024 10:20 AM Hospital Day # 1 Date of Evaluation: 08/13/2024 I personally evaluated and examined the patient [id number] in conjunction with the PA/SALES RECORD CLERK and agree with the management and dispostition of the patient. Please see the PA/SALES RECORD CLERK's note for full details.My sims findings are: [...] with the plan as outlined in the SALES RECORD CLERK/PA's note Disposition: Discharge plan is pending Please note that this chart was generated using voice recognition Mytonomy dictation software. Although every effort was made to ensure the accuracy of this automated supervisor pipe finishing, some errors in supervisor pipe finishing may have occurred. Osmar Rodriguez MD 08/13/2024 7:11 PM * Ashley He RN - 08/13/2024 6:38 AM EDT Dowel Machine Operator to bedside to complete morning assessment. [...] her feel funky. Pt denies needs from narrative writer at this time. Call light in [...] Birch, PT - 08/12/2024 4:58 PM EDT [facility] Inpatient/Observation/Outpatient Rehabilitation Date: 08/12/2024 Patient Name: Jonatan Olivarez [] Inpatient Acute/Observation [] Outpatient : 1960 [x] Pt refused/declined therapy at this time due to: Pt declining PT eval until morning. Therapist/Ophthalmology Technician will attempt to see this patient, at our earliest opportunity. SUSANNE BIRCH, PT Date: 08/12/2024 * Darling Welsh, PERSONAL LINES SALES REP - 08/12/2024 4:10 PM EDT RESPIRATORY ASSESSMENT [...] disease) stents x 3; BMS to LAD 12/2010;SPRAKLE to RCA 01/2011, NL LV COPD (chronic obstructive pulmonary disease) (HCC) Depression Diabetes mellitus (HCC) Edema chevy legs feet H/O cardiac catheterization 01/01/2011 H/O echocardiogram 09/03/2019 EF 65% evidence of mild grade I diastolic dysfunction seen Hernia of abdominal wall 2012 History of cardiac cath 03/17/2020 [facility]/Dr. Stephens/Left Radial History of cardiac [...] Value Date/Time PHART 7.355 12/13/2022 05:39 AM VGM2VPI 46.8 12/13/2022 05:39 AM PO2ART 57.3 12/13/2022 05:39 AM [id number] 88.5 12/13/2022 05:39 AM AIW2EJY 25.5 12/13/2022 05:39 AM PBEA NOT REPORTED [...] ____No ____Patient Refused documented in this encounterBon [facility] Discharge instructions* Discharge Instr - DUSTIN* [...] Emergency Contact: Serafin Olivarez Mobile Relation: Child Parquet Floor Layer'S Helper needed? No Past Surgical History: Past Surgical History: Procedure Laterality Date AORTA SURGERY 05/2016 [facility] CARDIAC CATHETERIZ[place] heart stent x3 CARDIAC CATHETERIZATION Left 02/25/2018 Right Ulnar/[facility]/ CARDIAC SURGERY CHOLECYSTECTOMY FEMORAL BYPASS HYSTERECTOMY (CERVIX STATUS UNKNOWN) VASCULAR SURGERY blood clot removed after hysto Immunization History: Immunization History Administered Date(s) Administered Influenza A (G0E2-30) Vaccine PF IM 03/17/2009 Influenza Virus Vaccine [...] type 2 diabetes mellitus, with fat layer exposed([facility]) E11.621, L97.522 Diabetic polyneuropathy associated with type 2 diabetes mellitus ([facility]) E11.42 Angina, class III I20.9 COPD with exacerbation ([facility]) J44.1 Hx of blood clots Z86.718 CAD (coronary artery disease) I25.10 COPD exacerbation ([facility]) J44.1 Community acquired bacterial pneumonia J15.9 COPD (chronic obstructive pulmonary disease) ([facility]) J44.9 Diabetes mellitus ([facility]) E11.9 Hypertension I10 Pneumonia due to infectious organism J18.9 AMS (altered mental status) R41.82 E. coli UTI N39.0, B96.20 Unstable angina ([facility]) I20.0 Acute coronary syndrome ([facility]) I24.9 S/P cardiac cath Z98.890 S/P angioplasty with stent Z95.820 Cellulitis of left lower extremity L03.116 Acute on chronic diastolic heart failure ([facility]) I50.33 Chronic pain of right [...] Chronic cough R05.3 Chronic obstructive pulmonary disease ([facility]) J44.9 Chronic suppurative otitis media of left ear H66.3X2 Mass of left thigh R22.42 Primary hypertension I10 Left hand pain M79.642 Acute bilateral low back pain with bilateral sciatica M54.42, M54.41 Hyperglycemia R73.9 Hypoxia R09.02 Chronic obstructive pulmonary disease with acute exacerbation ([facility]) J44.1 Chest congestion R09.89 Hernia of abdominal wall K43.9 Acute congestive heart failure, unspecified heart failure type ([facility]) I50.9 Spleen hematoma S36.029A Anemia D64.9 Heart failure ([facility]) I50.9 Elevated hemoglobin A1c R73.09 Generalized abdominal pain R10.84 COPD with acute exacerbation ([facility]) J44.1 Chronic coughing R05.3 Allergic rhinitis J30.9 Acute lower GI bleeding K92.2 Hypertensive emergency I16.1 Laceration of spleen S36.039A Myocardial infarction ([facility]) I21.9 PRES (posterior reversible encephalopathy syndrome) I67.83 Presence of stent in coronary artery Z95.5 Pulmonary emboli ([facility]) I26.99 Pulmonary HTN ([facility]) I27.20 Spleen injury S36.00XA Spondylosis of lumbar spine M47.816 Traumatic skin ulcer, limited to breakdown of skin ([facility]) L98.491 Ulcer of left great toe due to diabetes mellitus ([facility]) E11.621, L97.529 Upper GI bleed K92.2 Spinal stenosis of lumbar region M48.061 Breast cancer screening by mammogram Z12.31 Neuropathy G62.9 Cellulitis L03.90 Dry skin L85.3 Disorder of arteries and arterioles, unspecified I77.9 Closed fracture of pelvis ([facility]) S32.9XXA Closed head injury S09.90XA Closed fracture of nasal bone S02.2XXA Viral infection, unspecified B34.9 Severe obesity ([facility]) E66.01 Postoperative state Z98.890 Numbness [...] 2 diabetes mellitus, with fat layer exposed ([facility]) E11.621, L97.422 Mouth sore K13.79 [...] MRSA 07/06/13 07/06/13 Oliva Dunlap APRN - DISTRIBUTED GENERATION PROJECT MANAGER 03/18/20 Seth Prajapati RN 07/02/2013 wound--right groin [...] Assisted Dressing Assisted Toileting Assisted Feeding Independent Licensed Practical Vocational Nurse Assisted Med Delivery whole Wound Care Documentation [...] of days: 612 Wound 08/12/24 Ankle Left;Lateral 4jct9fb (Active) Wound Image 08/12/24 1221 Wound Cleansed Betadine/povidone iodine 08/17/24 0651 Dressing/Treatment Open to air 08/17/24 0651 Wound Assessment Dry 08/17/24 0651 Drainage Amount None (dry) 08/17/24 0651 Odor None 08/17/24 0651 Felicity-wound Assessment Warm;Dry/flaky 08/17/24 0651 Margins Undefined edges 08/12/24 1836 Number of days: 4 Wound 08/12/24 Toe (Comment which one) Right 9jvm5vo (Active) Wound Image 08/12/24 1227 Wound Cleansed Betadine/povidone iodine 08/17/24 0651 Dressing/Treatment Open to air 08/17/24 0651 Wound Assessment Dry 08/17/24 0651 Drainage Amount None (dry) 08/17/24 0651 Odor None 08/17/24 0651 Felicity-wound Assessment Dry/flaky 08/17/24 0651 Margins Undefined edges 08/12/24 1836 Number of days: 4 Wound 08/12/24 Toe (Comment which one) Right 8rko9vb (Active) Wound Cleansed Betadine/povidone iodine 08/17/24 0651 [...] of days: 4 Wound 08/12/24 Heel Right;Plantar 7grv4mt (Active) Wound Image 08/12/24 1228 Wound Cleansed [...] foot wounds (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 Patient's personal belongings (please select all that are sent with patient): Dentures upper and lower, bag of clothes, cell phone, substation superintendent, notebook. RN SIGNATURE: CASE MANAGEMENT/SOCIAL WORK SECTION Inpatient Status Date: 08/12/24 Readmission Risk Assessment Score: [facility] RISK OF UNPLANNED READMISSION 2.0 19.7 Total Score Discharging to Facility/ Agency Name: [facility] Address:[place], [place] Fax: Dialysis Facility (if applicable) Name: Address: Dialysis Schedule: Phone: Fax: Road Equipment Operator/Ben Day Artist signature: PHYSICIAN SECTION Prognosis: Fair Condition at Discharge: Stable Rehab Potential (if transferring to Rehab): Fair Recommended Labs or Other Treatments After Discharge: na Physician Certification: I certify the above information and transfer of Jonatan Olivarez is necessary for the continuing treatment of the diagnosis listed and that she requires Halfway Facility for greater 30 days. Update Admission H&P: No change in H&P PHYSICIAN SIGNATURE: documented in this encounterBon [facility] History of Present illness Narrative* Ly Constantino RN - 08/10/2024 6:30 PM EDT Dowel Machine Operator at bedside to complete evening assessment. Upon entry to room, pt in bed, respirations unlabored while on 2L NC. Vitals obtained and assessment completed, see flow sheet for details. Pt deniesneeds from narrative writer at this time. Call light in reach. Care is ongoing. * Erika Vivar PTA - 08/10/2024 2:54 PM EDT [facility] Inpatient/Observation/Outpatient Rehabilitation Date: 08/10/2024 Patient [...] does not require skilled services due to: Therapist/Ophthalmology Technician will attempt to see this patient, at our earliest opportunity. Erika Vivar, SHEET HANGER Date: 08/10/2024 Cosigned by Susanne Birch, PT at 08/10/2024 3:04 PM EDT * Corie Robertson RN - 08/10/2024 1:10 PM EDT Dowel Machine Operator completed wound care and placed new wound dressing at this time. * Anjelica Carrington OT - 08/10/2024 10:59 AM EDT Occupational Therapy Facility/Department: [facility] Daily Treatment Note NAME: Jonatan [...] 13 Anjelica Carrington OT * Erika Vivar, SHEET HANGER - 08/10/2024 10:44 AM EDT Physical Therapy Facility/Department: [facility] Daily Treatment Note NAME: Jontaan Olivarez : 1960 Date of Service: 08/10/2024 Discharge Recommendations: Continue to assess pending progress, Subacute/Halfway Facility, Home with Home health PT Patient [...] wall 2012 History of cardiac cath 03/17/2020 [facility]/Dr. Stephens/Left Radial History of cardiac [...] Value Date/Time PHART 7.355 12/13/2022 05:39 AM ONV3ZAQ 46.8 12/13/2022 05:39 AM PO2ART 57.3 12/13/2022 05:39 AM [id number] 88.5 12/13/2022 05:39 AM EQB6HWJ 25.5 12/13/2022 05:39 AM PBEA NOT REPORTED [...] Robertson, DARI - 08/10/2024 7:55 AM EDT Dowel Machine Operator to bedside to complete morning assessment. [...] and whiteboard updated. Pt denies needs from narrative writer at this time. Call light in [...] No rashes. No skin lesions. See below 08/06/20243467-Cwyapvyja-Fzio Foot/Toes 08/06/2024-Admission--Right Foot/Toes Diagnostic Data: Complete Blood [...] Condition is stable Treatment plan: PT/OT Appreciate Coagulant Dipper Imaging: CT Head-negative CT Chest/Abd/Pelvis-see above Medications: LOC DM Condition is stable Treatment plan: A1C-7.2 current 6.8 in 2023 Appreciate Coagulant Dipper Imaging: no further imaging studies ordered today Medications: Continue metformin Nutrition status: severe malnutrition Coagulant Dipper consult initiated I/O Daily weight Monitor Daily [...] No fluid accumulation (08/07/241130) Acute Illness - Registered Nursing Professor Strength: Not Performed (08/07/241130) Acute Illness - [...] Full Code Disposition: Discharge plan is home [facility] Advanced Care Planning documentation: [x] [...] MIPS PERFORMANCE] HILDA Cortes CNP , HILDA, SALES RECORD CLERK-C Hospitalist Medicine 08/10/2024, 6:46 AM Cosigned by Osmar Rodriguez MD at 08/10/2024 6:51 PM EDT Associated attestation - Osmar Rodriguez MD - 08/10/2024 6:51 PM EDT Images from the original note were not included. [address] , [place], [place], [address] Attestation Patient: Jonatan Olivarez Date of Admission: 08/06/2024 1:44 PM Hospital Day # 4 Date of Evaluation: 08/10/2024 I personally evaluated and examined the patient [id number] in conjunction with the PA/SALES RECORD CLERK and agree with the management and dispostition of the patient. Please see the PA/SALES RECORD CLERK's note for full details.My sims findings are: [...] with the plan as outlined in the SALES RECORD CLERK/PA's note Disposition: Discharge plan is pending Please note that this chart was generated using voice recognition [employer] dictation software. Although every effort was made to ensure the accuracy of this automated supervisor pipe finishing, some errors in supervisor pipe finishing may have occurred. Osmar Rodriguez MD 08/10/2024 6:51 PM * Louise Mccoy RN - 08/09/2024 1:40 PM EDT Dowel Machine Operator to bedside for afternoon assessment. See [...] tissue gas. No focal intramuscular abnormality. Joint: Itru-nu-zldlqvih tricompartmental osteoarthritis of the knee joint. No [...] tissue gas. No focal intramuscular abnormality. Joint: Subz-yn-dnycwpep tricompartmental osteoarthritis of the knee joint. No [...] tissue gas. No focal intramuscular abnormality. Joint: Fbib-ll-yttyduch tricompartmental osteoarthritis of the knee joint. No [...] tissue gas. No focal intramuscular abnormality. Joint: Mydl-ma-oxmllkvd tricompartmental osteoarthritis of the knee joint. No [...] plaque along the aorta and its branches. 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 Aortic graft [...] artery disease) COPD (chronic obstructive pulmonary disease) ([facility]) Chronic right hip pain Weight loss Oxygen dependent - 2L per baseline Resolved Problems: * No resolved hospital problems. * Patient Active Problem List Diagnosis Date Noted Unstable angina ([facility]) 03/17/2020 Angina, class III 02/25/2018 Diabetic ulcer of toe of left foot associated with type 2 diabetes mellitus, with fat layer exposed([facility]) 01/24/2017 CAD S/P percutaneous coronary angioplasty 08/30/2013 Severe malnutrition 08/07/2024 Left hand pain 06/11/2022 Primary hypertension 05/04/2022 Chronic obstructive pulmonary disease ([facility]) 04/09/2022 Chronic suppurative otitis media [...] polyneuropathy associated with type 2 diabetes mellitus ([facility]) 01/24/2017 Ventral hernia 08/30/2013 Fall 08/06/2024 Cellulitis of lower extremity, unspecified laterality 08/06/2024 Oxygen dependent - 2L per baseline 08/06/2024 Acute insomnia 07/27/2024 Diabetic ulcer of left heel associated with type 2 diabetes mellitus, with fat layer exposed ([facility]) 07/21/2024 Mouth sore 07/21/2024 Weight loss 06/24/2024 Closed fracture of pelvis ([facility]) 06/23/2024 Closed head injury 06/23/2024 [...] skin ulcer, limited to breakdown of skin ([facility]) 01/10/2024 Ulcer of left great toe due to diabetes mellitus ([facility]) 01/10/2024 Acute lower GI bleeding 01/09/2024 Upper GI bleed 01/09/2024 Transient alteration of awareness 01/09/2024 Acute lower gastrointestinal hemorrhage 01/09/2024 Lower GI bleed 01/09/2024 Vomiting 01/06/2024 Chronic coughing 08/13/2023 Allergic rhinitis 08/13/2023 COPD with acute exacerbation ([facility]) 07/12/2023 Elevated hemoglobin A1c 06/10/2023 Generalized abdominal pain 06/10/2023 Heart failure ([facility]) 04/12/2023 Anemia 01/28/2023 Acute congestive heart failure, unspecified heart failure type ([facility]) 12/13/2022 Spleen hematoma 12/13/2022 Hypertensive emergency 11/09/2022 Hernia of abdominal wall 10/29/2022 Chest congestion 09/21/2022 Laceration of spleen 09/02/2022 Pulmonary HTN ([facility]) 09/02/2022 Spleen injury 09/02/2022 Chronic obstructive pulmonary disease with acute exacerbation ([facility]) 08/13/2022 Hypoxia 08/07/2022 Acute bilateral [...] organism 04/23/2019 COPD (chronic obstructive pulmonary disease) ([facility]) Diabetes mellitus ([facility]) Hypertension Community acquired bacterial pneumonia 04/21/2019 COPD exacerbation ([facility]) 06/06/2018 COPD with exacerbation ([facility]) 06/05/2018 Hx of blood clots CAD (coronary artery disease) Severe obesity ([facility]) 11/05/2017 Laceration of nose 10/22/2017 [...] Santiago MD , M.D. * Vahid Valera, SHEET HANGER - 08/09/2024 7:52 AM EDT Physical Therapy Facility/Department: [facility] Daily Treatment Note NAME: Jonatan Olivarez : 1960 Date of Service: 08/09/2024 Discharge Recommendations: Continue to assess pending progress, Subacute/Halfway Facility, Home with Home health PT Patient [...] up in the bed watching TV when narrative writer entered the room. Pt is A&O x4. Vitals and assessment as charted. Pt rated her pain a 8 out of 10 in bilat feet and legs. Dowel Machine Operator educated pt that her pain medications is due at 1909 and pt verbalized understanding. Pt denies any further needs at this time. Call light within reach. Bed alarm on. * Vahid Valera PTA - 08/08/2024 9:10 AM EDT [facility] Inpatient/Observation/Outpatient Rehabilitation Date: 08/08/2024 Patient Name: Jonatan Olivarez [x] Inpatient Acute/Observation [] Outpatient : 1960 [x] Pt refused/declined therapy at this time due to: Pt pleasantly declined therapy at this time d/t increased foot pain. Pt stated i'm not doing no physical therapy today . Pt declined exercises inthe chair. Therapist/Ophthalmology Technician will attempt to see this patient, at [...] tissue gas. No focal intramuscular abnormality. Joint: Pced-di-qkdxkkeh tricompartmental osteoarthritis of the knee joint. No [...] tissue gas. No focal intramuscular abnormality. Joint: Hwfa-ty-pryivyvh tricompartmental osteoarthritis of the knee joint. No [...] tissue gas. No focal intramuscular abnormality. Joint: Zoew-tp-ygswvhna tricompartmental osteoarthritis of the knee joint. No [...] tissue gas. No focal intramuscular abnormality. Joint: Mvez-jw-tvzysamv tricompartmental osteoarthritis of the knee joint. No [...] plaque along the aorta and its branches. 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 Aortic graft [...] polyneuropathy associated with type 2 diabetes mellitus ([facility]) Primary hypertension Severe malnutrition Tobacco abuse disorder CAD (coronary artery disease) COPD (chronic obstructive pulmonary disease) ([facility]) Chronic right hip pain Weight loss Oxygen dependent - 2L per baseline Resolved Problems: * No resolved hospital problems. * Patient Active Problem List Diagnosis Date Noted Unstable angina ([facility]) 03/17/2020 Angina, class III 02/25/2018 Diabetic ulcer of toe of left foot associated with type 2 diabetes mellitus, with fat layer exposed([facility]) 01/24/2017 CAD S/P percutaneous coronary [...] polyneuropathy associated with type 2 diabetes mellitus ([facility]) 01/24/2017 Ventral hernia 08/30/2013 Fall 08/06/2024 Cellulitis of lower extremity, unspecified laterality 08/06/2024 Oxygen dependent - 2L per baseline 08/06/2024 Acute insomnia 07/27/2024 Diabetic ulcer of left heel associated with type 2 diabetes mellitus, with fat layer exposed ([facility]) 07/21/2024 Mouth sore 07/21/2024 Weight loss 06/24/2024 Closed fracture of pelvis ([facility]) 06/23/2024 Closed head injury 06/23/2024 [...] 03/18/2024 Erythematous condition, unspecified 03/07/2024 Myocardial infarction ([facility]) 03/02/2024 Presence of stent in coronary artery 03/02/2024 Pulmonary emboli ([facility]) 03/02/2024 Spondylosis of lumbar spine 03/02/2024 Spinal stenosis of lumbar region 03/02/2024 Breast cancer screening by mammogram 03/02/2024 Traumatic skin ulcer, limited to breakdown of skin ([facility]) 01/10/2024 Ulcer of left great toe due to diabetes mellitus ([facility]) 01/10/2024 Acute lower GI bleeding 01/09/2024 Upper GI bleed 01/09/2024 Transient alteration of awareness 01/09/2024 Acute lower gastrointestinal hemorrhage 01/09/2024 Lower GI bleed 01/09/2024 Vomiting 01/06/2024 Chronic coughing 08/13/2023 Allergic rhinitis 08/13/2023 COPD with acute exacerbation ([facility]) 07/12/2023 Elevated hemoglobin A1c 06/10/2023 Generalized abdominal pain 06/10/2023 Heart failure ([facility]) 04/12/2023 Anemia 01/28/2023 Acute congestive heart failure, unspecified heart failure type ([facility]) 12/13/2022 Spleen hematoma 12/13/2022 Hypertensive emergency 11/09/2022 Hernia of abdominal wall 10/29/2022 Chest congestion 09/21/2022 Laceration of spleen 09/02/2022 Pulmonary HTN ([facility]) 09/02/2022 Spleen injury 09/02/2022 Chronic obstructive pulmonary disease with acute exacerbation ([facility]) 08/13/2022 Hypoxia 08/07/2022 Acute bilateral [...] organism 04/23/2019 COPD (chronic obstructive pulmonary disease) ([facility]) Diabetes mellitus ([facility]) Hypertension Community acquired bacterial pneumonia 04/21/2019 COPD exacerbation ([facility]) 06/06/2018 COPD with exacerbation ([facility]) 06/05/2018 Hx of blood clots CAD (coronary artery disease) Severe obesity ([facility]) 11/05/2017 Laceration of nose 10/22/2017 [...] Podiatry involved Critical Care Time: 0 Antibiotic [facility] Advanced Care Planning documentation: [x] [...] the patient's medical record. [DOES NOT SATISFY [facility] PERFORMANCE] Gordo De Santiago MD , M.D. * Quirino Newman DPM - 08/07/2024 11:21 PM EDT Spoke with SALES RECORD CLERK via perfect serve in regards to vascular results. Moderate occlusion of proximal inflow noted bilateral, namely previous fempop bypass left lower. Patient will require vascular consultation and likely intervention in order to faciliate wound healing. Continue with current betadine dressings. * Ly Constantino RN - 08/07/2024 7:15 PM EDT Dowel Machine Operator at bedside to complete evening assessment. Upon entry to room, pt in bed, respirations unlabored while on 2 L NC. Vitals obtained and assessment completed, see flow sheet for details. Pt denies needs from narrative writer at this time. Call light in reach. Care is ongoing. * Erika Vivar PTA - 08/07/2024 1:57 PM EDT Physical Therapy Facility/Department: [facility] Daily Treatment Note NAME: Jonatan Olivarez : 1960 Date of Service: 08/07/2024 Discharge Recommendations: Continue to assess pending progress, Subacute/Halfway Facility, Home with Home health PT Patient [...] plus a pain pill at bedside and narrative writer obtaining vital signs, hypotensive (see chart) [...] Hand (interosseous) Fluid Accumulation: No fluid accumulation Registered Nursing Professor Strength: Not Performed Nutrition Assessment: Severe malnutrition [...] Measures: Height: 154.9 cm (5' 0.98 ) [place] Body Weight (IBW): 105 lbs (48 kg) [...] Used for Energy Requirements: Current Energy (kcal/day): 4141-7936 (27-30kcal/d) Weight Used for Protein Requirements: [place] Protein (g/day): 58-67 (1.2-1.4g/d) Method Used for Fluid Requirements: 1 ml/kcal Fluid (ml/day): 9501-4144 Nutrition Diagnosis: Severe malnutrition related to inadequate [...] Supplement, Continue current diet Leyla Holguin Contact: [phone], LD at 08/07/2024 11:53 AM EDT * Susanne Luciano, PT - 08/07/2024 9:04 AM EDT Physical Therapy Facility/Department: [facility] Physical Therapy Initial Assessment Name: Jonatan Olivarez : 1960 Date of Service: 08/07/2024 Discharge Recommendations: Continue to assess pending progress, Subacute/Halfway Facility, Home with Home health PT PT [...] gauze wrap. * Oliva Dunlap APRN - DISTRIBUTED GENERATION PROJECT MANAGER - 08/07/2024 8:32 AM EDT Images from [...] No rashes. No skin lesions. See below 08/06/20240370-Yotsrzfqu-Xbkw Foot/Toes 08/06/2024-Admission--Right Foot/Toes Diagnostic Data: Complete Blood [...] Condition is stable Treatment plan: PT/OT Appreciate Coagulant Dipper Imaging: CT Head-negative CT Chest/Abd/Pelvis-see above Medications: IVF DM Condition is stable Treatment plan: A1C-7.2 current 6.8 in 2023 Appreciate Coagulant Dipper Imaging: no further imaging studies ordered today Medications: Start Metformin Nutrition status: severe malnutrition Coagulant Dipper consult initiated I/O Daily weight Monitor Daily [...] No fluid accumulation (08/07/241130) Acute Illness - Registered Nursing Professor Strength: Not Performed (08/07/241130) Acute Illness - Malnutrition Score: 16 (08/07/241130) Malnutrition Status: Severe malnutrition (08/07/241130) I agree with the dietitian's malnutrition assessment. Medical Nutrition Therapy: continue current nutrition therapy and oral supplements [facility] Prophylaxis: DVT: Eliquis Stress Ulcer: PPI Disposition: Shared decision making: All test results, treatment options and disposition options were discussed with the patient today Social determinants of health that may impact management: none Code status: Full Code Disposition: Discharge plan is pending [facility] Advanced Care Planning documentation: [x] [...] the patient's medical record. [DOES NOT SATISFY [facility] PERFORMANCE] HILDA Cortes CNP , CHENTE STEVENSC Hospitalist Medicine 08/07/2024, 11:47 AM Cosigned by Osmar Rodriguez MD at 08/07/2024 8:32 PM EDT Associated attestation - Osmar Rodriguez MD - 08/07/2024 8:32 PM EDT Images from the original note were not included. [address], [address] Attestation Patient: Jonatan Olivarez Date of Admission: 08/06/2024 1:44 PM Hospital Day # 1 Date of Evaluation: 08/07/2024 I personally evaluated and examined the patient [id number] in conjunction with the PA/SALES RECORD CLERK and agree with the management and dispostition of the patient. Please see the PA/SALES RECORD CLERK's note for full details.My sims findings are: [...] with the plan as outlined in the SALES RECORD CLERK/PA's note Disposition: Discharge plan is pending Please note that this chart was generated using voice recognition BugBusteron dictation software. Although every effort was made to ensure the accuracy of this automated supervisor pipe finishing, some errors in supervisor pipe finishing may have occurred. Osmar Rodriguez MD 08/07/2024 8:29 PM * Mariaelena Marshall, OTR/L - 08/07/2024 8:00 AM EDT Occupational Therapy Facility/Department: [facility] Occupational Therapy Initial Assessment Name: [...] balance Assessment: 63 y/o F admitted to [facility] for cellulitis LE. Patient presents [...] Learning: None Education Outcome: Verbalized understanding;Demonstrated understanding [facility] - ADL [facility] Daily Activity - Inpatient How much [...] How much help for eating meals?: None [facility] Inpatient Daily Activity Raw Score: 19 [facility] T-Scale Score : 40.22 ADL Inpatient [facility] 0-100% Score: 42.8 ADL Inpatient [facility] G-Code Modifier : CK Goals Short Term [...] from the original note were not included. [facility] Department of Pharmacy Pharmacy Renal Adjustment Note [...] Gonzalez RN - 08/06/2024 7:42 PM EDT Dowel Machine Operator at bedside to complete evening assessment. Upon entry to room, pt awake and in bed, respirations normal and unlabored while on 2 L via nasal cannula. Vitals obtained and assessment completed, see flow sheet for details. Pt denies needs from narrative writer at this time. Call light in [...] wall 2012 History of cardiac cath 03/17/2020 [facility] Michael/Dr. Stephens/Left Radial History of cardiac [...] Value Date/Time PHART 7.355 12/13/2022 05:39 AM CSW0FKT 46.8 12/13/2022 05:39 AM PO2ART 57.3 12/13/2022 05:39 AM C2NJZUUW 88.5 12/13/2022 05:39 AM VXL0ZAN 25.5 12/13/2022 05:39 AM PBEA NOT REPORTED [...] PM EDT [facility] a direct admit [facility] Dr Rodriguez [...] lives with her son, was just at [facility] for the fall. Noticed wounds on both [...] Call light within reach. [facility] Hospital Discharge instructions* Discharge Instr - [...] be sent through Care Everywhere. * Cellulitis (Guyanese) documented in this encounter[facility]-2025 [facility] course Narrative* Oliva Dunlap APRN - CNP - 08/10/2024 1:57 PM EDT Images from the original note were not included. Discharge Summary Jonatan C Diggs : 1960 Admit date: 08/06/2024 Discharge date: [...] No rashes. No skin lesions. See below 08/06/20242769-Kmedlpifp-Ctuc Foot/Toes 08/06/2024-Admission--Right Foot/Toes Significant Diagnostic Studies: Lab [...] tissue gas. No focal intramuscular abnormality. Joint: Svmw-aj-istanyet tricompartmental osteoarthritis of the knee joint. No [...] tissue gas. No focal intramuscular abnormality. Joint: Wfzs-jw-iykgdlno tricompartmental osteoarthritis of the knee joint. No [...] tissue gas. No focal intramuscular abnormality. Joint: Yonx-al-mixvuwyi tricompartmental osteoarthritis of the knee joint. No [...] tissue gas. No focal intramuscular abnormality. Joint: Odyx-qg-hbyuught tricompartmental osteoarthritis of the knee joint. No [...] plaque along the aorta and its branches. 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 Aortic graft [...] Problem List Diagnosis Date Noted Unstable angina ([facility]) 03/17/2020 Angina, class III 02/25/2018 Diabetic ulcer of toe of left foot associated with type 2 diabetes mellitus, with fat layer exposed([facility]) 01/24/2017 CAD S/P percutaneous coronary [...] polyneuropathy associated with type 2 diabetes mellitus ([facility]) 01/24/2017 Tobacco abuse disorder 05/27/2014 Ventral hernia 08/30/2013 Fall 08/06/2024 Cellulitis of lower extremity, unspecified laterality 08/06/2024 Oxygen dependent - 2L per baseline 08/06/2024 Acute insomnia 07/27/2024 Diabetic ulcer of left heel associated with type 2 diabetes mellitus, with fat layer exposed ([facility]) 07/21/2024 Mouth sore 07/21/2024 Weight loss 06/24/2024 Closed fracture of pelvis ([facility]) 06/23/2024 Closed head injury 06/23/2024 [...] 03/18/2024 Erythematous condition, unspecified 03/07/2024 Myocardial infarction ([facility]) 03/02/2024 Presence of stent in coronary artery 03/02/2024 Pulmonary emboli ([facility]) 03/02/2024 Spondylosis of lumbar spine 03/02/2024 Spinal stenosis of lumbar region 03/02/2024 Breast cancer screening by mammogram 03/02/2024 Traumatic skin ulcer, limited to breakdown of skin ([facility]) 01/10/2024 Ulcer of left great toe due to diabetes mellitus ([facility]) 01/10/2024 Acute lower GI bleeding 01/09/2024 Upper GI bleed 01/09/2024 Transient alteration of awareness 01/09/2024 Acute lower gastrointestinal hemorrhage 01/09/2024 Lower GI bleed 01/09/2024 Vomiting 01/06/2024 Chronic coughing 08/13/2023 Allergic rhinitis 08/13/2023 COPD with acute exacerbation ([facility]) 07/12/2023 Elevated hemoglobin A1c 06/10/2023 [...] organism 04/23/2019 COPD (chronic obstructive pulmonary disease) ([facility]) Diabetes mellitus ([facility]) Hypertension Community acquired bacterial pneumonia 04/21/2019 COPD exacerbation ([facility]) 06/06/2018 COPD with exacerbation ([facility]) 06/05/2018 Hx of blood clots CAD (coronary artery disease) Severe obesity ([facility]) 11/05/2017 Laceration of nose 10/22/2017 [...] the lungs daily vitamin D 1.25 MG (29712 UT) Caps capsule Commonly known as: ERGOCALCIFEROL [...] Your Medications These medications were sent to [facility] - [place], [place] - [address] - P [phone] - F [phone] [place] [address] amoxicillin-clavulanate 875-125 MG per tablet metFORMIN 500 MG tablet povidone-iodine 10 % external solution Patient Instructions: Activity: activity as tolerated Diet: regular diet Wound Care: none needed Other: na Disposition: Discharge to Home with home health Follow up: Patient will be followed by Osmar Rodriguez MD in 1-2 weeks CORE MEASURES on Discharge (if applicable) FAUSTO/ARB in CHF: NA Statin in GA: NA ASA in GA: NA Statin in CVA: NA Antiplatelet in CVA: NA Total time spent on discharge services: 40 minutes Including the following activities: Evaluation and Management of patient Discussion with patient and/or surrogate about current care plan Coordination with Case Management and/or Ben Day Artist Coordination of care with Consultants (if applicable) Coordination of care with Receiving Facility Physician (if applicable) Completion of DME forms (if applicable) Preparation of Discharge Summary Preparation of Medication Reconciliation Preparation of Discharge Prescriptions Signed: Oliva Dunlap APRN - FABIENNE, DOCUMENT CLERK, SALES RECORD CLERK-C 08/10/2024, 1:57 PM Please note that this chart was generated using voice recognition Mytonomy dictation software. Although every effort was made to ensure the accuracy of this automated supervisor pipe finishing, some errors in supervisor pipe finishing may have occurred. Cosigned by Osmar Rodriguez MD at 08/10/2024 6:52 PM EDT Associated attestation - Osmar Rodriguez MD - 08/10/2024 6:52 PM EDT Images from the original note were not included. [address], [address] Attestation Patient: Jonatan Olivarez Date of Admission: 08/06/2024 1:44 PM Hospital Day # 4 Date of Evaluation: 08/10/2024 I personally evaluated and examined the patient [id number] in conjunction with the PA/SALES RECORD CLERK and agree with the management and dispostition of the patient. Please see the PA/SALES RECORD CLERK's note for full details.My sims findings are: [...] care plan Coordination with Case Management and/or Ben Day Artist Coordination of care with Consultants (if applicable) [...] this chart was generated using voice recognition BugBusteron dictation software. Although every effort was made to ensure the accuracy of this automated supervisor pipe finishing, some errors in supervisor pipe finishing may have occurred. Osmar Rodriguez MD 08/10/2024 6:51 PM documented in this encounterBon [facility] Miscellaneous Notes* Telephone Encounter - Lawandajeanette Francis - 08/07/2024 12:37 PM EDT The patient was a no show today. Dowel Machine Operator unable to LVM requesting patient call back to schedule another appointment. Unable to complete call. documented in this encounterUniversity [facility]als [facility]05-09-2025 Telephone encounter Note* Telephone Encounter - Lawanda Francis - 08/07/2024 12:37 PM EDT The patient was a no show today. Dowel Machine Operator unable to LVM requesting patient call back to schedule another appointment. Unable to complete call. [facility]04-18-2025 Miscellaneous Notes* Telephone Encounter - Libertad Vargas MA - 07/17/2024 9:20 AM EDT [facility]ICATION [place] [address] New referral received by [facility] Medication Management for diabetes. Patient was contacted to schedule appointment at [facility] [place] ([facility]). This was my first attempt to reach the patient and was able to schedule the patient on 08/07/24 at [facility] P[facility]. Patient will be asked to bring [facility] Additional Info: Medication List and Blood Glucose Meter, and glucometer Referring provider: Alondra Amado APRNAIDAN documented in this encounterUniversity Hospitals Beachwood [facility] Center04-18-2025 Telephone encounter Note* Telephone Encounter - Libertad Vargas MA - 07/17/2024 9:20 AM EDT [facility] - PHARMAC[facility] MEDICATION MANAGEMENT [address] [place] [facility] [address] New referral received by [facility] Medication Management for diabetes. Patient was contacted to schedule appointment at [facility] [place] ([facility]). This was my first attempt to reach the patient and was able to schedule the patient on 08/07/24 at [facility]. Patient will be asked to bring [facility] Additional Info: Medication List and Blood Glucose Meter, and glucometer Referring provider: YOVANY Tang [facility]10-23-2024 Progress note Author Luis Fernando Strauss [facility] January 22, 2024 8:47pmNote Date/TimeOct2023 7:37pm[place] [address] Hospitalist Progress Note Signed Patient: Jonatan Olivarez MR#: [id number] : 1960 Acct:[id number] Age/Sex: 63 / F Adm Date: 4 Loc: 3T Room: [address] [place] [address] Type: ADM IN Attending Dr: Luis Fernando [...] Documented By: Luis Fernando Strauss MD 4 [id number] Signed By: <Electronically signed by Luis Fernando Strauss MD> 01/22/242046 <Electronically signed by MD IDALMIS Naqvi> 01/22/241938 [facility] Work Phone: 1(354) 128-614510-23-2024 Progress note Author Ziggy Barraza [facility] January 22, 2024 8:36pmNote Date/TimeOctober 2023 8:[address] [address] Progress Note Signed Patient: Jonatan Olivarez MR#: [id number] : 1960 Acct:[id number] Age/Sex: 63 / F Adm Date: 4 Loc: 3T Room: [address] [place] [address] Type: ADM IN Attending Dr: Luis Fernando [...] <Electronically signed by MD Ziggy Barraza> 01/22/242035 [facility] Work Phone: 1(191) 327-311310-23-2024 Consult note Author Artur Guo [facility] January 22, 2024 2:41pmNote Date/TimeOctober 2023 6:[address] [address] Vascular Surgery Consult Note Signed Patient: Jonatan Olivarez MR#: [id number] : 1960 Acct:[id number] Age/Sex: 63 / F Adm Date: 4 Loc: 3T Room: [address] [place] [address] Type: ADM IN Attending Dr: Luis Fernando [...] course summary from her discharge paperwork from [facility].She was admitted for gastrointestinal bleed for [...] attest to her recent GI bleed at [facility] and does know that she [...] negative unless noted below or in HPI [facility] Medical History (Updated 01/21/24 @ 11:56 by [...] % (Auto) 73.1 Lymph % (Auto) 16.0 Denali % (Auto) 7.0 Eos % (Auto) 2.2 Baso % (Auto) 1.7 Nucleat RBC Rel Count 0.1 Neut # (Auto) 5.4 Lymph # (Auto) 1.2 Denali # (Auto) 0.5 Eos # (Auto) 0.2 [...] 70.9 67.9 Lymph % (Auto) 19.2 19.9 Denali % (Auto) 6.8 7.9 Eos % (Auto) 2.2 2.5 Baso % (Auto) 0.9 1.8 Nucleat RBC Rel Count 0.2 0.1 Neut # (Auto) 5.0 4.2 Lymph # (Auto) 1.3 1.2 Denali # (Auto) 0.5 0.5 Eos # (Auto) [...] Ratio Vitamin B12 Folate TSH 3rd Generation [employer] 01/20/24 04:06 Corrected WBC 5.7 Uncorrected WBC Count 5.7 RBC 2.53 L Hgb 7.7 L Hct 23.6 L MCV 93.4 MCH 30.4 MCHC 32.6 RDW 20.9 H Plt Count 237 MPV 7.7 Neut % (Auto) 65.9 Lymph % (Auto) 20.4 Denali % (Auto) 9.3 Eos % (Auto) 2.9 Baso % (Auto) 1.5 Nucleat RBC Rel Count 0.2 Neut # (Auto) 3.7 Lymph # (Auto) 1.2 Denali # (Auto) 0.5 Eos # (Auto) 0.2 [...] 398 Folate 6.5 TSH 3rd Generation 3.03 [employer]Personal Cell Sciences Com PT 10.4 Seconds (9.0-12.9) 01/19/24 16:42 [...] [facility] [...] dateof consult. I also spoke with our supervisor paper machine Dr. Milton rosenberg. The plan will be for a trial of blood thinners and doubling the proton pump inhibitor inhibitor. If she fails this we will place a filter. Documented By: Artur Guo MD 01/20/24 1547 Signed By: <Electronically signed by Artur Guo MD> 01/22/24 1441 <Electronically signed by HILDA Joyce> 01/21/24 0600 [facility] Work Phone: 1(432) 430-674110-22-2024 Progress note Author Luis Fernando Strauss [facility] January 21, 2024 1:37pmNote Date/TimeOctober 2023 12:19pm[place] [address] Hospitalist Progress Note Signed Patient: Jonatan Olivarez MR#: [id number] : 1960 Acct:[id number] Age/Sex: 63 / F Adm Date: 4 Loc: Room: [address] [place] [address] Type: ADM IN Attending Dr: Luis Fernando [...] Reportedly had chest pain at the [facility] prior to arrival. Patient recently [...] by MD IDALMIS Naqvi> 01/21/24 1216 [facility] Work Phone: 1(841) 253-640010-22-2024 Progress note Author Ziggy Barraza [facility] January 21, 2024 11:18amNote Date/TimeOct2023 11:12[place] [id number] Pulmonology Progress Note Signed Patient: Jonatan Olivarez MR#: [id number] : 1960 Acct:[id number] Age/Sex: 63 / F Adm Date: 4 Loc: Room: [address] [place] [address] Type: ADM IN Attending Dr: Luis Fernando Strauss MD Copies to: ~ Date of Service: 01/21/2024 Subjective Subjective Narrative: Patient is much more awake and alert today. She inquires as to when she can be discharged to home with patient getting all her care in [facility]. Exam Physical Exam Vital Signs: Temp [...] <Electronically signed by MD Ziggy Barraza> 01/21/24 1119 [facility] Work Phone: 1(679) 609-545310-21-2024 Consult note Author Natalia Murrell [facility] January 20, 2024 2:48pmNote Date/TimeOct2023 2:40pmBloomington[place] [address] Cardiology Consult Note Signed Patient: Jonatan Olivarez MR#: [id number] : 1960 Acct:[id number] Age/Sex: 63 / F Adm Date: 4 Loc: Room: [address] [place] [address] Type: ADM IN Attending Dr: Luis Fernando [...] was recently evaluated for GI bleed in [place] as described in the EMR Patient has known coronary artery disease with previous PCI's details of which are unavailable and recent heart catheterization 8 to 9 months ago with no intervention in [place]. Patient is a very poor historian, falling [...] procedures were greater than 12 months ago. [facility] Medical History (Updated 01/20/24 @ 14:47 by [...] # (Auto) 1.2 1.3 1.2 (1.00-4.8) x10E3/uL Denali # (Auto) 0.5 0.5 0.5 (0.0-0.8) x10E3/uL Eos # (Auto) 0.2 0.2 0.2 (0.0-0.45) x10E3/uL Baso # (Auto) 0.1 0.1 0.1 (0.0-0.2) x10E3/uL 01/20/24 Range/Units 04:06 RBC 2.53 L (3.60-5.00) X10E6/uL Hgb 7.7 L (11.8-15.4) g/dL Hct 23.6 L (34.0-46.4) % Plt Count 237 (150-450) x10E3/uL Neut # (Auto) 3.7 (1.8-7.7) x10E3/uL Lymph # (Auto) 1.2 (1.00-4.8) x10E3/uL Denali # (Auto) 0.5 (0.0-0.8) x10E3/uL Eos # [...] ,000 ml @ 100 mls/hr IV .Q10H [facility] Rx#:[id number] Oral 150 / 150 150 / 350 [...] Code(s): I25.10 - Atherosclerotic heart disease of [place] coronary artery without angina pectoris (2) Hypotension: [...] <Electronically signed by Natalia Murrell DO> 01/20/24 1828 [facility] Work Phone: 1(145) 422-965610-21-2024 Consult note Author Ziggy Barraza [facility] January 20, 2024 2:09pmNote Date/TimeOct2023 11:57[place] [address] Pulmonology Consult Note Signed Patient: Jonatan Olivarez MR#: [id number] : 1960 Acct:[id number] Age/Sex: 63 / F Adm Date: 4 Loc: Room: [address] [place] [address] Type: ADM IN Attending Dr: Luis Fernando [...] This is the patient's first visit to [facility] with patient living in [place] and reportedly getting some of her care in [facility]. Patient reportedly had been recently discharged from hospitalization in [place] with a bleeding ulcer. The patient also [...] were remote and confirms recent hospitalization [facility] for[facility]. She thinks she is at the [facility] but does report it is 2023. Review of Systems Review of Systems All other systems reviewed & are negative unless noted below or in HPI (though patient is poor historian) [facility] Medical History (Updated 01/19/24 @ 23:00 by [...] 01/19/24 CT/CT angio chest PE protocol: f ([id number]) CT/CT abdomen pelvis w con: f CLINICAL [...] * Agree with obtaining prior records from [facility] regarding concerns for gastrointestinal bleeding * [...] <Electronically signed by MD Ziggy Barraza> 01/20/24 7859 [facility] Work Phone: 1(359) 651-721710-21-2024 Progress note Author Luis Fernando Strauss [facility] January 20, 2024 12:32pmNote Date/TimeOct2023 11:42[place] [address] Hospitalist Progress Note Signed Patient: Jonatan Olivarez MR#: [id number] : 1960 Acct:[id number] Age/Sex: 63 / F Adm Date: 4 Loc: Room: [address] [place] [address] Type: ADM IN Attending Dr: Luis Fernando [...] She was just discharged 2days ago from [facility] for upper GI ulcers from what [...] Reportedly had chest pain at the [facility] prior to arrival. Patient recently had stents placed. Was also hypotensive on presentation. CT of the chest did demonstrate PE. Patient would likely have contraindication to starting anticoagulation given recent gastric ulcers. Will obtain discharge summary for further understanding of findings at [facility] 2 days ago. -Hold off on [...] mg daily only -Obtain medical records from [facility] -Monitor CBC closely -Continue subcu heparin [...] by Luis Fernando Strauss MD> 01/20/24 1238 [facility] Work Phone: 1(750) 659-735310-14-2024 Miscellaneous Notes* Telephone Encounter - Neema Myles [...] - 01/13/2024 3:12 PM EDT 1st attempt: Dowel Machine Operator contacted patient's friend, Kimmie Posada, (NOT ON HIPAA) and informed them thatwe have received a request from clinical staff to schedule an outpatient neurology follow up appointment with our clinic and offered to do so. Kimmie stated that they will call us back at another time to do, as she is currently admitted to [facility] because of a blood clot - Kimmie has patient's cell phone at this time. Dowel Machine Operator informed patient that their referral is valid for up to one year, so they are able to give us a call at any time within that year to schedule - patient expressed understanding. documented in this encounterUniversity Hospitals [facility]10-14-2024 Telephone encounter Note* Telephone [...] clinic visit. Best Regards, Boaz Bender MD unrival [id number] Telephone encounter Note* Telephone Encounter - Wendy Woods - 01/13/2024 3:12 PM EDT 1st attempt: Dowel Machine Operator contacted patient's friend, Kimmie DorisLaurelEliezer, (NOT ON HIPAA) and informed them thatwe have received a request from clinical staff to schedule an outpatient neurology follow up appointment with our clinic and offered to do so. Kimmie stated that they will call us back at another time to do, as she is currently admitted to [facility] because of a blood clot - Kimmie has patient's cell phone at this time. Dowel Machine Operator informed patient that their referral is valid for up to one year, so they are able to give us a call at any time within that year to schedule - patient expressed understanding. [facility] [id number] Miscellaneous Notes* Telephone Encounter - SHANTANU Rosenbaum [...] Please schedule EGD 8 weeks from 01/10/24 TTH/NM ASA 4 MAC Order in * Telephone [...] cc'ed you FYI. Thanks documented in this encounterUniversity Hospitals Beachwood [facility] Center10-14-2024 Telephone encounter Note* Telephone Encounter - SHANTANU Rosenbaum - 01/13/2024 1:29 PM EDT ----- Message from USHA Mauricio sent at 01/13/2024 1:24 PM EDT ----- Regarding: Hospital follow-up Patient was seen in the hospital with upper GI bleed. Status post EGD with Dr. Angeles. Please schedule her for repeat EGD in [address] Angeles [facility]10-14-2024 Telephone encounter Note* Telephone Encounter - Irena Vallejo CMA - 01/13/2024 1:29 PM EDT Please schedule EGD 8 weeks from 01/10/24 TTH/FL ASA 4 MAC Order in SET10-14-2024 Telephone encounter Note* Telephone Encounter - Stacy Ganllo - 01/13/2024 1:29 PM EDT Left a message with my name and call back number. [facility]10-14-2024 Telephone encounter Note* Telephone Encounter - Jazmine Gutierrez MD - 01/13/2024 1:29 PM EDT Just FYI: Repeat EGD on 01/16(due to slight hemoglobin drop) showed clean based antral ulcers. Clips are not in place anymore. Gastric biopsies were taken. Patient will still need repeat EGD in [address] Angelse. Please schedule. , I cc'ed you FYI. Thanks [facility] Work Phone: 1(235) 960-619704-22-2023 Hospital Discharge instructions* Discharge Instructions* Jorge Cortez [...] sent through Care Everywhere. * Fall Prevention (Guyanese) * Low Back Contusion (Guyanese) documented in this encounterB[facility] [place] Work Phone: 1([phone]) 113-670501-27-2023 History and physical note* YOVANY Owen - [...] Laterality: N/A; Surgeon: Pedrito Pickett MD; Location: [facility] ENDOSCOPY FEMORAL BYPASS Left HYSTERECTOMY The [...] Body mass index is 25.51 kg/m . [facility] Ms. Olivarez is a well nourished [...] Tobacco Cessation Referral due to residing in [place]. Spent 3-5 minutes counseling on this topic. [...] check Electronically Signed By: YOVANY Shaver [facility], Division of General & Gastrointestinal Surgery 11th Floor [place], [address], [place] [address] Office 05/04/2022 8:34 AM [facility]01-27-2023 History and physical note* YOVANY Owen [...] Tobacco Cessation Referral due to residing in [place]. Spent 3-5 minutes counseling on this topic. [...] check Electronically Signed By: YOVANY Shaver [facility], Division of General & Gastrointestinal Surgery 11th Floor [place], [address] [place] [address] [address], [place] [id number] Office 05/04/2022 8:34 AM [facility] Instructions* Patient Instructions* YOVANY Owen - [...] and increase the risk of infection. THE [place] TOBACCO QUIT LINE ( ) The hotline is available to uninsured [place], Medicated recipients, women and members of the [place] [employer]. Provides expert advice and support, personalized Quit plan and self-help materials, and free nicotine patches. Hours are Saturday-Saturday 9am - 11pm, Saturday and Saturday 10:30am - 6:30pm, Voicemail services are available 22/10 [facility] Tobacco Cessation [facility] is a pharmacist-run physician-supervised clinic providing consultation and support services to those thinking about or who are ready to quit nicotine use. Call [phone](Quit) for an appointment. ONLINE QUIT GUIDES & RESOURCES [place] [employer]: Guide to Quitting Smoking http://www.cancer.org/Healthy/StayAway fromTobacco/GuidetoQuittingSmoking/index Quit line for resources or to talk with a counselor near you [place] [employer] http://www.heart.org/HEARTORG/GettingHealthy/ QuitSmoking/Quit- Smoking_[facility]_001085_ SubHomePage.jsp [place] [employer] http://www.lungusa.org/stop-smoking/how-to-quit/ http://www.ffsonline.org or call 096-376-9664 National Cancer [place]: Smokefree.gov www.smokefree.gov Smokefree QuitGuide Smartphone Application Quit line Center for Disease Control Prevention www.CDC.gov/tobacco [place] [employer]: Free Patient Education Materials http://www.aafp.org/online/en/home/clinical/ publichealth/tobacco/resources.html The Department of Health and Human Services https://BeTobaccoFree.gov documented in this [facility]07-08-2022 NotePROCEDURE: Socialthing Signa HDXT 1.5 Sagittal T1, T2, STIR [...] with simvastatin Sent: Today 833 by Diamond Jacqeus RN FOCUSED REVIEW OF SYSTEMS: Negative for [...] using Monitored Anesthesia Care. Pedrito Pickett MD [facility]04-20-2022 History and physical note* Leighton Tabares [...] Care. Pedrito Pickett MD [facility] Hospital course Narrative* Caren Mera MD - 03/19/2021 1:16 PM EST Physician Discharge Summary Caren Mera MD Patient ID: Jonatan Olivarez [id number] 1960 Admission date: 03/17/2021 Discharge date: 03/19/2021 Admitting Physician: No att. providers found Primary Care Physician: Osmar Rodriguez MD Primary Discharge Diagnoses: Patient Active Problem List Diagnosis Date Noted Unstable angina ([facility]) 03/17/2020 Angina, class III ([facility]) 02/25/2018 Diabetic ulcer of toe of left foot associated with type 2 diabetes mellitus, with fat layer exposed([facility]) 01/24/2017 CAD S/P percutaneous coronary angioplasty 08/30/2013 Mild malnutrition ([facility]) 02/22/2021 Diabetic polyneuropathy associated with type 2 diabetes mellitus ([facility]) 01/24/2017 Ventral hernia 08/30/2013 Acute on chronic diastolic heart failure ([facility]) 03/18/2021 Cellulitis of left lower extremity 02/21/2021 S/P cardiac cath 03/18/2020 S/P angioplasty with stent 03/18/2020 Acute coronary syndrome ([facility]) 03/17/2020 E. coli UTI 07/20/2019 AMS (altered mental status) 07/18/2019 Acute on chronic respiratory failure with hypercapnia ([facility]) 07/18/2019 Acute on chronic respiratory failure with hypoxemia ([facility]) 04/23/2019 Pneumonia due to infectious organism 04/23/2019 COPD (chronic obstructive pulmonary disease) ([facility]) Diabetes mellitus ([facility]) Hypertension Community acquired bacterial pneumonia 04/21/2019 COPD exacerbation ([facility]) 06/06/2018 COPD with exacerbation ([facility]) 06/05/2018 Acute respiratory failure with hypoxia and hypercapnia ([facility]) 06/05/2018 Hx of blood clots CAD (coronary artery disease) Tobacco abuse counseling 05/27/2014 Tobacco abuse disorder 05/27/2014 Atherosclerosis of artery of extremity with intermittent claudication ([facility]) 05/27/2014 Dizziness 05/27/2014 Intolerance of drug 05/27/2014 Atherosclerosis of both carotid arteries 05/27/2014 Hypothyroidism 05/27/2014 Abnormal nuclear stress test 01/22/2013 Smoking greater than 40 pack years 01/22/2013 Claudication in peripheral vascular disease ([facility]) 11/06/2012 Stable angina ([facility]) 11/06/2012 Additional Diagnoses: Diagnosis Date Asthma Back problem Bulging discs (2 or 3), 1 cracked & 1 blackened discs CAD (coronary artery disease) stents x 3; BMS to LAD 12/2010;SPARKLE to RCA 01/2011, NL LV COPD (chronic obstructive pulmonary disease) ([facility]) Depression Diabetes mellitus ([facility]) Edema chevy legs feet H/O cardiac catheterization 01/01/2011 H/O echocardiogram 09/03/2019 EF 65% evidence of mild grade I diastolic dysfunction seen Hernia of abdominal wall 2013 History of cardiac cath 03/17/2020 [facility] Michael/Dr. Stephens/Left Radial History of cardiac [...] LOWER EXTREMITY VENOUS BILATERAL Result Date: 03/17/2021 [facility] Vascular Lower Extremities DVT Study Procedure Patient Name [place] Date of Study 03/17/2021 JONATAN C Date of 1960 Gender Female Age 60 year(s) Race Room Number 01A Corporate ID # [id number] Patient MR # [id number] Leather Stretcher Corrine Peterson Interpreting Physician Jose Mercer MD Referring Nurse Fredy Billingsley, Referring Physician Practitioner DOCUMENT CLERK-FABIENNE Procedure Type of Study: Veins: Lower Extremities [...] ms QTc Calculation (Bazett) 403 ms P Aurora 62 degrees R Aurora 78 degrees T Aurora 51 degrees Basic Metabolic Panel Collection Time: [...] # 1.26 1.10 - 3.70 k/uL Absolute Denali # 0.46 0.10 - 1.20 k/uL Absolute [...] # 1.29 1.10 - 3.70 k/uL Absolute Denali # 0.48 0.10 - 1.20 k/uL Absolute [...] NEGATIVE NEGATIVE Ketones, Urine NEGATIVE NEGATIVE Specific [place], UA 1.020 1.010 - 1.020 Urine Hgb [...] 1.05 (L) 1.10 - 3.70 k/uL Absolute [place]ali # 0.48 0.10 - 1.20 k/uL Absolute [...] 0.94 (L) 1.10 - 3.70 k/uL Absolute Denali # 0.39 0.10 - 1.20 k/uL Absolute [...] Your Medications These medications were sent to [address] [facility] - [phone] - F [phone] [address] [facility] [address] doxycycline hyclate 100 MG tablet furosemide 20 [...] M.D. 03/19/2021 1:17 PM documented in this [facility] Phone: [phone]) 315-888412-17-2021 Note [facility] Vascular Lower Extremities DVT Study Procedure Patient Name SHER Date of Study 03/17/2021 JONATAN Phillips Date of 1960 Gender Female Age 60 year(s) Race Room Number 01A Corporate ID # [id number] Patient MR # [id number] Leather Stretcher Corrine Peterson Interpreting Physician Jose Mercer MD Referring Nurse Fredy Billingsley, Referring Physician Practitioner DOCUMENT CLERK-DISTRIBUTED GENERATION PROJECT MANAGER Procedure Type of Study: Veins: Lower Extremities [...] Ankle !Yes !Yes !None (more content not included)...[facility] 02-09-2021 Hospital Discharge instructions* Instructions* Zach Bocanegra PA-C - 02/09/2021 Ice to affected area Tylenol Motrin for pain if needed Gentle range of motion Plenty of fluids Rise from seated position slowly See your doctor for recheck * Attachments The following attachments cannot be sent through Care Everywhere. * Contusion (Guyanese) * Head Injury: Closed: General Info (Guyanese) documented in [facility] Work Phone: [phone]) 648-253206-25-2020 Evaluation note Includes: Assessments for all patient encounters Findings Encounter Date Depressive disorder Established Patie nt with Leah Short [facility] 09/24/2019 Generalized anxiety disorder Establis hed Patient with Leah Short [facility] 09/24/2019 M54.5 - Low back pain Medical Establishe d Patient with Shawna Holliday [facility] 09/24/2019 Obesity due to excess calories Medical E stablished Patient with Shawna Holliday [facility] 09/24/2019 Z68.25 - Body mass index (BM I) 25.0-25.9, adult Medical Established Patient with Shawna Holliday DISTRIBUTED GENERATION PROJECT MANAGER 09/24/2019 Depressive disorder Telebehavioral He alth with Leah Short [facility] 09/15/2019 Generalized anxiety disorder [facility] with Leah Short [facility] 09/15/2019 Depressive disorder Telebehavioral He alth with Leah Short [facility] 08/26/2019 Generalized anxiety disorder [facility] with Leah Arroyo [facility] 08/26/2019 Z68.37 - Body mass index (BM I) 37.0-37.9 adult Medical Established Patient with Vahid Breweren DISTRIBUTED GENERATION PROJECT MANAGER 05/01/2019 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36 - Body mass index (BM I) 36.0-36.9 adult Medical Established Patient with Vahidchristiano Breweren DISTRIBUTED GENERATION PROJECT MANAGER 03/20/2019 Acute atopic conjunctivitis [Acute atopic conjunctivitis left eye] Medical Established Patient with Elena King [facility] 03/03/2019 Acute sinusitis Medical Established Patient with Elena King DISTRIBUTED GENERATION PROJECT MANAGER 03/03/2019 Body mass index [Body mass i ndex (BMI) 35.0-35.9 adult] Medical Established Patient with Elena King [facility] 03/03/2019 Generalized anxiety disorder Establis hed Patient with Zach Grimaldo [facility] 02/19/2019 Nicotine dependence Established Patie nt with Zach Grimaldo [facility] 02/19/2019 Persistent depressive disord er (dysthymia) Established Patient with Zach Grimaldo [facility] 02/19/2019 Body mass index Medical Established Patient with Vahid Angelita DISTRIBUTED GENERATION PROJECT MANAGER 02/19/2019 Generalized anxiety disorder Medical Est ablished Patient with Vahid Angelita DISTRIBUTED GENERATION PROJECT MANAGER 02/19/2019 Lumbago Medical Established Patient with Vahid Angelita DISTRIBUTED GENERATION PROJECT MANAGER 02/19/2019 Lumbar radiculopathy Medical Established Patient with Vahid Angelita DISTRIBUTED GENERATION PROJECT MANAGER 02/19/2019 Obesity due to excess calories Medical E stablished Patient with Vahid Angelita DISTRIBUTED GENERATION PROJECT MANAGER 02/19/2019 Body mass index Medical Established Patient with Vahid Angelita DISTRIBUTED GENERATION PROJECT MANAGER 01/22/2019 Obesity due to excess calories Medical E stablished Patient with Vahid Angelita DISTRIBUTED GENERATION PROJECT MANAGER 01/22/2019 Body mass index [Body mass i ndex (BMI) 35.0-35.9 adult] Medical Established Patient with Elena Malik [facility] 01/12/2019 Diabetes Risk Test Score was three score 01/12/2019 Medical Established Patient with Elena Malik [facility] 01/12/2019 Fagerstrom Score was 0 01/12/2019 Medica l Established Patient with Elena Malik [facility] 01/12/2019 Limb pain of shoulder region [facility] Obesity due to excess calories Medical E stablished Patient with Elena Malik [facility] 01/12/2019 PHQ-9: total score was 18 01/12/2019 Med ical [facility] Assess bronchitis Medical Established Patient with Vahid Nagy [facility] 12/11/2018 Irreducible ventral hernia Medical Estab lished Patient with Vahid Nagy [facility] 12/11/2018 Obesity due to excess calories Medical E stablished Patient with Vahid Nagy [facility] 12/11/2018 Z68.32 - Body mass index (BM I) 32.0-32.9 adult Medical Established Patient with Vahid Nagy [facility] 12/11/2018 Body mass index Medical Established Patient with Vahid Nagy [facility] 10/30/2018 Assess dermatitis Medical Established Patient with Vahid Nagy [facility] 09/30/2018 Assess urinary tract infection Medical E stablished Patient with Vahid Nagy [facility] 09/30/2018 Body mass index Medical Established Patient with Vahid Nagy [facility] 08/27/2018 Obesity due to excess calories Medical E stablished Patient with Vahid Nagy [facility] 08/27/2018 F17.210 - Nicotine dependenc e, cigarettes, uncomplicated BH Established Patient with Zachernestina Grimaldo [facility] 07/28/2018 F34.1 - Dysthymic disorder Establishe d Patient with Zach Grimaldo [facility] 07/28/2018 F41.1 - Generalized anxiety disorder Established Patient with Zach Grimaldo [facility] 07/28/2018 Assess diabetes mellitus Medical Establi shed Patient with Vahid Breweren [facility] 07/28/2018 Assess generalized anxiety disorder [facility] иван Established Patient with Vahidchristiano Breweren [facility] 07/28/2018 Assess lumbago Medical Established Patient with Vahid Nagy [facility] 07/28/2018 Assess perennial allergic rh initis with seasonal variation Medical Established Patient with Vahid Angelita [facility] 07/28/2018 Body mass index Medical Established Patient with Vahid Nagy [facility] 07/28/2018 Obesity due to excess calories Medical E stablished Patient with Vahid Nagy DISTRIBUTED GENERATION PROJECT MANAGER 07/28/2018 Assess tobacco abuse Medical Established Patient with Vahid Nagy DISTRIBUTED GENERATION PROJECT MANAGER 06/27/2018 Assessment of chronic lower back pain Me dical Established Patient with Vahid Nagy DISTRIBUTED GENERATION PROJECT MANAGER 06/27/2018 Obesity due to excess calories Medical E stablished Patient with Vahid Nagy CNP 06/27/2018 Obesity due to excess calories Medical E stablished Patient with Vahid Nagy DISTRIBUTED GENERATION PROJECT MANAGER 05/30/2018 [facility] Work Phone: 1([phone]) 647-334501-26-2020 History of Present illness Narrative* Sowmya Llanes [...] I am I being a bitch when business reporter entered to give timed medicationa * [...] NL LV COPD (chronic obstructive pulmonary disease) ([facility]) Depression Diabetes mellitus (HCC) Edema [...] Results Component Value Date PHART 7.332 04/23/2019 [id number] 51.2 04/23/2019 PO2ART 61.2 04/23/2019 [id number] 89.6 04/23/2019 [id number] 26.5 04/23/2019 PBEA NOT REPORTED 04/23/2019 VITALS [...] Carb Control diet but just stares at narrative writer and states I reallydon't care. Will [...] Intake/Output Summary (Last 24 hours) at 04/25/2019 0904 Last data filed at 04/25/2019 0555 Gross per 24 hour Intake 500 ml [...] 04/24/2019 3:36 PM EST Update Oliva Tristan SALES RECORD CLERK of pts elevated BP. * Susie Batista [...] M.D. 04/24/2019 7:01 AM * Berta Almanzar, [facility] - 04/24/2019 2:27 AM EST RESPIRATORY ASSESSMENT PROTOCOL Patient Name: Jonatan Phillips Diggs Room#: I305/I305-01 : 1960 Admitting diagnosis: Community acquired bacterial pneumonia [J15.9] Medical History: Past Medical History: Diagnosis Date Asthma Back problem Bulging discs (2 or 3), 1 cracked & 1 blackened discs CAD (coronary artery disease) stents x 3; BMS to LAD 12/2010;SPARKLE to RCA 01/2011, NL LV COPD (chronic obstructive pulmonary disease) ([facility]) Depression Diabetes mellitus ([facility]) Edema chevy legs feet H/O [...] Results Component Value Date PHART 7.332 04/23/2019 [id number] 51.2 04/23/2019 PO2ART 61.2 04/23/2019 [id number] 89.6 04/23/2019 [id number] 26.5 04/23/2019 PBEA NOT REPORTED 04/23/2019 Blood [...] sleep. Lights turned off and informed patient narrative writer will be in around 2100 for [...] 2.5L at this time. * Bea Mireles, PERSONAL LINES SALES REP - 04/23/2019 1:08 PM EST RESPIRATORY ASSESSMENT [...] NL LV COPD (chronic obstructive pulmonary disease) ([facility]) Depression Diabetes mellitus ([facility]) Edema chevy legs feet H/O [...] Results Component Value Date PHART 7.332 04/23/2019 [id number] 51.2 04/23/2019 PO2ART 61.2 04/23/2019 [id number] 89.6 04/23/2019 [id number] 26.5 04/23/2019 PBEA NOT REPORTED 04/23/2019 Blood [...] 12:28 PM EST Speech Language Pathology Facility/Department: [facility] ICU CLINICAL BEDSIDE SWALLOW TREATMENT AND DISCHARGE [...] Normal in all situations Treatment Plan Requires DRAFTER APPRENTICE Intervention: No D/C Recommendations: Home independently Recommended [...] Patient Education Response: Verbalizes understanding Therapy Time DRAFTER APPRENTICE Individual Minutes Time In: 1205 Time Out: [...] regular diet, thin liquids. Katelyn Tubbs M.A. CF-DRAFTER APPRENTICE BERTRAND Ceron 04/23/2019 12:28 PM * Meredith [...] being hungry for 2-3 days. Seen by DRAFTER APPRENTICE, regular with thin OK. UBW almost 200#. [...] 5. Fluid Accumulation-No significant fluid accumulation, 6. Registered Nursing Professor Strength-Not measured Nutrition Risk Level: Low, Moderate [...] % Weight Change: , weight gain trend [place] Body Wt: 105 lb (47.6 kg), % [place] Body 185% BMI Classification: BMI 35.0 - [...] Pertinent Labs, Patient/Family Education, I&O Contact Number: [phone] * Brit Batista RN - 04/23/2019 10:21 AM EST Outpt clinic called and left message with staff about pulmonology consult. * iZggy Smith MD - 04/23/2019 6:48 AM EST [...] Tobacco abuse COPD (chronic obstructive pulmonary disease) ([facility]) Diabetes mellitus ([facility]) Hypertension Resolved Problems: * No [...] home when medically stable. Patient resides in [place] and her adult son lives with her. Patient uses home O2 and a nebulizer for assistance. Patient also has a cane which she uses as she needs to. Patient does her own cooking and her son assists her with the housekeeping. Patient does not drive and uses the local [employer] servicethrough [place] transportation. PCP is Vahid Calderón CNP. Patient denies needing assistance with paying for her medications and reports that she does not even have a copay with any of her current medications. Discharge plan is home when medically stable. Patient would like a referral to be made for Meals onee program. Referral placed to [facility] on Aging via telephone voicemail message for meals program. Patient is a 'Full Code' status. Would like information on executing Advanced Directives. [facility]. Patient states that she has not used home health care in the past but is open to this as the doctorthinks it necessary. Provider list left for her review. SALESPERSON SHEET MUSIC to monitor and assist wit discharge planning as needs arise. ELISSA Barbosa 04/22/2019 * Laurie Velasquez RN - 04/22/2019 12:09 PM EST SonJavier called and updated on ICU transfer and patient condition. * Katelyn Tubbs SLP - 04/22/2019 12:01 PM EST Speech Language Pathology Facility/Department: [facility] ICU CLINICAL BEDSIDE SWALLOW EVALUATION NAME: Jonatan [...] Normal in all situations Treatment Plan Requires DRAFTER APPRENTICE Intervention: Yes Duration/Frequency of Treatment: x1 follow-up [...] Patient Education Response: Verbalizes understanding Therapy Time DRAFTER APPRENTICE Individual Minutes Time In: 1000 Time Out: 1025 Minutes: 25 ST recommends a one-time follow-up for meal assessment d/t pt's medical condition and risk factors associated with dysphagia. ST recommends regular, thin diet and x1 follow-up for meal assessment to confirm pt's tolerance of this diet. Katelyn Tubbs M.A. CF-DRAFTER APPRENTICE BERTRAND Ceron 04/22/2019 12:06 PM * Laurie [...] called out stating I have a headache. Dowel Machine Operator informed patient that there was still an hour to go before being able to given PRN motrin. Patient stated that she felt miserable and requested something else. Dowel Machine Operator asked if it was just her headache but patient stated it was her legs and armsthat hurt and she felt like she was going to get sick. Page out to Dr. De Santiago. * Blaise Darling, PERSONAL LINES SALES REP - 04/21/2019 10:36 PM EST RESPIRATORY ASSESSMENT [...] Results Component Value Date PHART 7.262 06/05/2018 [id number] 57.5 06/05/2018 PO2ART 60.2 06/05/2018 [id number] 86.9 06/05/2018 UVC0FFN 25.3 06/05/2018 PBEA NOT REPORTED 06/05/2018 Blood [...] Will continue to monitor. documented [facility] this [facility] Work Phone: 1(202) 981-147601-26-2020 Hospital course Narrative* Ziggy Smith MD - 04/26/2019 12:08 PM EST Ziggy Smith M.D. Internal Medicine Discharge Summary Patient ID: Jonatan Olivarez [id number] 1960 Admission date: 04/21/2019 Discharge date: 04/26/2019 Admitting Physician: Gordo De Santiago MD Primary Care Physician: Vahid Nagy, DOCUMENT CLERK - DISTRIBUTED GENERATION PROJECT MANAGER Primary Discharge Diagnoses: Community acquired bacterial pneumonia [...] obstructive pulmonary disease) (HCC) Depression Diabetes mellitus ([facility]) Edema chevy legs feet H/O [...] Discharge Medications: Jonatan Olivarez Home Medication Instructions LISBETH:[id number] Printed on:04/26/19 1200 Medication Information albuterol (PROVENTIL) [...] as needed for Pain Incontinence Supply [facility] Incontinence pads 150 per [...] applicable) FAUSTO/ARB in CHF: N/A ASA in GA: N/A Statin in GA: N/A Statin in CVA: N/A Antiplatelet in CVA: N/A Total time spent on discharge services: 35 minutes Including the following activities: Evaluation and Management of patient Discussion with patient and/or surrogate about current care plan Coordination with Case Management and/or Ben Day Artist Coordination of care with Consultants (if applicable) Coordination of care with Receiving Facility Physician (if applicable) Completion of DME forms (if applicable) Preparation of Discharge Summary Preparation of Medication Reconciliation Preparation of Discharge Prescriptions Signed: Ziggy Smith M.D. 04/26/2019 12:08 PM documented in this [facility] Phone: 1(376) 190-876401-12-2020 Hospital Discharge instructions* Instructions* Harish Sebastian DO [...] be sent through Care Everywhere. * Dizziness (Guyanese) * Shoulder Pain (Guyanese) documented in [facility] Phone: evalmnzsfy note* Diagnosis Pelvic pain- Primary documented in this encounter [employer] Phone: evalnrvutl note* Diagnosis Near syncope- Primary Syncope and collapse Multiple contusions Contusion of multiple sites, not elsewhere classified Abrasion of right knee, initial encounter documented in this encounter [employer] Phone: evaluation note* Diagnosis Intractable vomiting with nausea, unspecified vomiting type- Primary documented in this encounter [employer] Phone: evaluation note Assessments not supported for this document type No Assessments [facility] Work Phone: Evaluation note* Diagnosis Closed head injury, initial encounter- Primary Fall, initial encounter Contusion of right knee, initial encounter documented in this encounter [employer] Phone: [email or web address] note* Diagnosis Acute on chronic diastolic heart failure (HCC)- Primary Acute on chronic diastolic heart failure Cellulitis of left lower extremity Cellulitis and abscess of leg, except foot Acute on chronic respiratory failure with hypoxia (HCC) Pneumonia due to infectious organism, unspecified laterality, unspecified part of lung Pleural effusion, bilateral Unspecified pleural effusion CAD S/P percutaneous coronary angioplasty Coronary atherosclerosis of sitka coronary artery Tobacco abuse disorder Tobacco use disorder Acute on chronic respiratory failure with hypoxemia (HCC) COPD (chronic obstructive pulmonary disease) (HCC) Chronic airway obstruction, not elsewhere classified documented in this encounter [employer] Phone: evaluation note* Diagnosis Chronic right hip pain Pain in joint, pelvic region and thigh Fall, initial encounter Right hip pain Pain in joint, pelvic region and thigh documented in this encounter [employer] Phone: Evaluation note* Diagnosis Urinary incontinence, unspecified type documented in this encounter [employer] Phone: [email or web address] note* Diagnosis Right sided abdominal pain Abdominal pain, unspecified site documented in this encounter [employer] Phone: [email or web address] note* Diagnosis Acute pain of left shoulder- Primary Dizziness Dizziness and giddiness documented in this encounter [employer] Phone: [email or web address] note* Diagnosis Community acquired bacterial pneumonia- Primary [...] S/P percutaneous coronary angioplasty Coronary atherosclerosis of sitka coronary artery Tobacco abuse Tobacco use disorder Acute on chronic respiratory failure with hypoxemia (HCC) Smoking greater than 40 pack years Tobacco use disorder documented in this encounter [employer] Phone: evalwffapa note Includes: Assessments for all patient encounters Findings Encounter Date Assess tobacco abuse Established Patient with Vahid Nagy CNP 06/27/2018 Assessment of chronic lower back pain Es tablished Patient with Vahid Nagy CNP 06/27/2018 Obesity due to excess calories Establish ed Patient with Vahid Nagy [facility] 06/27/2018 Obesity due to excess calories Establish ed Patient with Vahid Nagy CNP 05/30/2018 [facility] Work Phone: Evaluation note* Diagnosis Chronic right hip pain Pain in joint, pelvic region and thigh documented in this encounter [employer] Phone: [email or web address] note* Diagnosis Recurrent abdominal hernia without obstruction or gangrene, unspecified hernia type Right lower quadrant abdominal mass Abdominal or pelvic swelling, mass, or lump, right lower quadrant documented in this encounter [employer] Phone: [email or web address] note* Diagnosis Ventral hernia without obstruction or gangrene- Primary Ventral hernia, unspecified, without mention of obstruction or gangrene Tobacco use Tobacco use disorder [facility] Contusion of coccyx, initial encounter- Primary Fall, initial encounter documented in this encounter [employer] Phone: evaluation note* Diagnosis Primary hypertension Unspecified [...] Chronic pain syndrome documented in this encounter [employer] Phone: evaluation note* Diagnosis Coccyx pain- Primary Other disorder of coccyx documented in this encounter [employer] Phone: [email or web address] note* Diagnosis Chronic obstructive pulmonary disease, unspecified COPD type (HCC) Chronic right hip pain Pain in joint, pelvic region and thigh Sacral pain Disorders of sacrum Lumbar back pain with radiculopathy affecting right lower extremity Chronic left hip pain Pain in joint, pelvic region and thigh documented in this encounter [employer] Phone: evaluation note* Diagnosis Onset Date Resolution Status Chest pain acuteHeart failureacuteHypotensionacuteHypoxiaacuteNonspecific ST-T wave electrocardiographic changesacutePulmonary [facility]oliaMer[facility] Work Phone: Evaluation note* Diagnosis Onset Date Resolution Status Anemia acuteCAD (coronary artery disease)acuteChest painacuteH/O heart artery stent acuteHypotensionacuteHypoxiaacuteNonspecific ST-T wave electrocardiographic changesacutePulmonary emboliate [facility] Work Phone: Evaluation note* Diagnosis Gastrointestinal hemorrhage, unspecified gastrointestinal hemorrhage type- Primary Chronic gastrointestinal hemorrhage Unspecified, hemorrhage of gastrointestinal tract Gastric ulcer without hemorrhage or perforation, unspecified chronicity [facility] Diagnosis Hypothyroidism- Primary Unspecified hypothyroidism Claudication in peripheral vascular disease Peripheral vascular disease, unspecified ASHD (arteriosclerotic heart disease) Coronary atherosclerosis of unspecified type of vessel, sitka or graft Atherosclerosis of both carotid arteries Occlusion and stenosis of carotid artery without mention of cerebral infarction Intolerance of drug Other drug allergy Dizziness Dizziness and giddiness Atherosclerosis of artery of extremity with intermittent claudication Tobacco abuse Tobacco use disorder Tobacco abuse counseling Counseling on substance use and abuse CAD S/P percutaneous coronary angioplasty Coronary atherosclerosis of sitka coronary artery COPD with acute exacerbation (HCC)- [...] Coronary atherosclerosis of unspecified type of vessel, sitka or graft Oxygen dependent - 2L per baseline Dependence on supplemental oxygen Severe malnutrition Nutritional marasmus [facility] Diagnosis Hypothyroidism- Primary Unspecified hypothyroidism Claudication in peripheral vascular disease Peripheral vascular disease, unspecified ASHD (arteriosclerotic heart disease) Coronary atherosclerosis of unspecified type of vessel, sitka or graft Atherosclerosis of both carotid arteries Occlusion and stenosis of carotid artery without mention of cerebral infarction Intolerance of drug Other drug allergy Dizziness Dizziness and giddiness Atherosclerosis of artery of extremity with intermittent claudication Tobacco abuse Tobacco use disorder Tobacco abuse counseling Counseling on substance use and abuse CAD S/P percutaneous coronary angioplasty Coronary atherosclerosis of sitka coronary artery COPD with acute exacerbation (HCC)- [...] Chronic pain syndrome documented in this encounter [facility] note* Diagnosis Hypothyroidism- Primary Unspecified hypothyroidism Claudication in peripheral vascular disease Peripheral vascular disease, unspecified ASHD (arteriosclerotic heart disease) Coronary atherosclerosis of unspecified type of vessel, sitka or graft Atherosclerosis of both carotid arteries Occlusion and stenosis of carotid artery without mention of cerebral infarction Intolerance of drug Other drug allergy Dizziness Dizziness and giddiness Atherosclerosis of artery of extremity with intermittent claudication Tobacco abuse Tobacco use disorder Tobacco abuse counseling Counseling on substance use and abuse CAD S/P percutaneous coronary angioplasty Coronary atherosclerosis of sitka coronary artery COPD with acute exacerbation (HCC)- [...] Disorders of sacrum documented in this encounter [facility]* Diagnosis Pain- Primary Generalized pain documented in this encounter [facility]* Diagnosis Acute cystitis without hematuria- Primary Acute cystitis without hematuria Hypoxia Hypoxemia Hypothyroidism Unspecified hypothyroidism Controlled type 2 diabetes mellitus with diabetic peripheral angiopathy and gangrene, without long-term current use of insulin ([facility] A-fib ([facility]) Atrial fibrillation Type 2 diabetes mellitus with diabetic foot infection ([facility]) COPD with acute exacerbation ([facility]) Tobacco abuse Tobacco use disorder Hyperlipidemia Other and unspecified hyperlipidemia Primary hypertension Unspecified essential hypertension Osteomyelitis of left foot ([facility]) Unspecified osteomyelitis, ankle and foot documented in this [facility] Narrative History of Present Illness not supported for this document type No History of Present Illness RecordedHealth [facility] Work Phone: Hospital Discharge instructions* Attachments The following attachments cannot be sent through Care Everywhere. * Pelvic Pain (Guyanese) [facility] Phone: Hospital Discharge instructions* Attachments The following attachments cannot be sent through Care Everywhere. * Knee Pain or Injury (Guyanese) * Lightheadedness or Faintness (Guyanese) [facility] Phone: Hospital Discharge instructions* Attachments The following attachments cannot be sent through Care Everywhere. * Pneumonia ([place]) [facility]charge [facility]* Attachments The following attachments cannot be sent through Care Everywhere. * Pain: Coccyx ([place]anese) documented in [facility] encounter[facility] Work Phone: Hospital Discharge instructionsNot on filedocumented in this encounterProMedica Health SystemInstructions Instructions not supported for this document type No Instructions RecordedHealth [facility] Work Phone: InstructionsNot on filedocumented in [...] Outcomes for active Goals No Outcomes RecordedHealth [facility] Work Phone: reason for referral (narrative)No Reason for Referral RecordedHealth [facility] Work Phone: reason for visit Narrative* Auth/CertSpecialty Diagnoses / ProceduresReferred By ContactReferred To Contact Diagnoses Cellulitis Osmar Rodriguez MD [address] [place] [address] Phone: tel: fax: [facility] [address] [place] [address] Referral IDStatusReasonStart DateExpiration DateVisits RequestedVisits [id number] [facility]Review of systems Narrative - Reported Review of Systems not supported for this document type No Review of Systems RecordedHealth [facility] Work Phone: History of Past Illness Name Date of Onset Comments Hypothyroidism DizzinessCAD (coronary artery disease)ASHD (arteriosclerotic heart disease) Ventral herniaDiabetes mellitus type 2 in obese04/14/2016HTN (hypertension)Type 2 diabetes mubnyskf44/30/2018Lumbar spinal stenosisNov 12 2014 9:53AMDiabetes mellitus type [...] type 2 in obese04/14/2015HTN (hypertension)Type 2 diabetes lzodnslw82/30/2018Lumbar spinal stenosisNov 2014 9:53AMDiabetes mellitus type 2 [...] type 2 in obese04/14/2015HTN (hypertension)Type 2 diabetes lmtdylic48/30/2018Lumbar spinal stenosisNov 2014 9:53AMDiabetes mellitus type 2 [...] type 2 in obese04/14/2015HTN (hypertension)Type 2 diabetes zlsvgerj73/30/2018Lumbar spinal stenosisNov 12 2014 9:53AMDiabetes mellitus type [...] type 2 in obese04/14/2015HTN (hypertension)Type 2 diabetes tygkvykj14/30/2018Lumbar spinal stenosisNov 12 2014 9:53AMDiabetes mellitus type [...] type 2 in obese04/14/2015HTN (hypertension)Type 2 diabetes spbfnipd22/30/2018Lumbar spinal stenosisNov 12 2014 9:53AMDiabetes mellitus type [...] PMFull Code03/18/2020 1:51 PM03/19/2020 5:35 PMNameRelationshipHealthcare Agent RelationshipCommunicationSaug[facility] Brother/SisterPrimary Decision Maker* * Serafin OlivarezChildSecondary Decision Maker* * Code StatusDate ActivatedDate InactivatedCommentsFull Code05/13/2021 9:24 AM 05/17/2021 4:01 PMFull Code05/01/2021 7:55 PM2 3:54 PMFull Code03/18/2020 1:51 PM03/19/2020 5:35 PMNameRelationshipHealthcare Agent Relationship CommunicationBaBoston Hope Medical CenterBrother/SisterPrimary Decision Maker* * Serafin OlivarezChildSecondary Decision Maker* * Code StatusDate ActivatedDate InactivatedCommentsFull Code04/21/2019 10:31 PMCode StatusDate ActivatedDate InactivatedCommentsDNR Suspension07/19/2021 2:29 PMName RelationshipHealthcare Agent RelationshipCommunicationBaBoston Hope Medical CenterBrother/Sister Primary Decision Maker* * Serafin OlivarezChildSecondary Decision Maker* * NameRelationshipHealthcare Agent RelationshipCommunicationElderBoston Hope Medical Center Brother/SisterPrimary Decision Maker* * Serafin OlivarezChildSecondary Decision Maker* * NameRelationshipHealthcare Agent RelationshipCommunicationBaBoston Hope Medical Center Brother/SisterPrimary Decision Maker* * Seraifn OlivarezChildSecondary Decision Maker* * Code StatusDate ActivatedDate [...] InactivatedComments05/01/2021 7:55 PM2 3:54 PMDate Activated Date QbpkcdfirclPihdgcks13/18/2020 1:51 PM03/19/2020 5:35 PMDate ActivatedDate IantcomwaauZuydgmyt66/18/2020 12:30 PM03/18/2020 1:50 PMNameRelationship Healthcare Agent RelationshipCommunicationBambi () Abbyther/Sister Primary Decision Maker* * Serafin OlivarezChildSecondary Decision Maker* * Advance Directive Response Recorded Date/ Time Advance Directives No January 19, 2024 6:01pm Date ActivatedDate TrzafhqhrsgEdhepwip94/11/2024 12:31 AM01/18/2024 3:18 PMDate ActivatedDate OuszjcveybiLivptnav17/7/2024 4:06 PM10 10:56 PMDate ActivatedDate InactivatedComments11/10/2022 5:40 AM11/19/2022 8:58 PMDate ActivatedDate InactivatedComments10/22/2022 5:48 AM10/23/2022 5:00 PMDate ActivatedDate InactivatedComments09/25/2022 1:11 AM09/26/2022 6:33 PMDate ActivatedDate TdbxwimtwfmLfxphptz79/11/2024 12:31 AMDate ActivatedDate JpvdhkfodirXjgngpfm29/7/2024 4:06 PM10 10:56 PMDate ActivatedDate InactivatedComments11/10/2022 5:40 AM11/19/2022 8:58 PMDate ActivatedDate InactivatedComments10/22/2022 5:48 AM10/23/2022 5:00 PMDate ActivatedDate InactivatedComments09/25/2022 1:11 AM09/26/2022 6:33 PMDate ActivatedDate PwbsjyhmzyoSxxyoeiv16/11/2024 12:31 AMDate ActivatedDate InactivatedComments 07/13/2024 5:15 PM07/16/2024 5:48 PMDate ActivatedDate InactivatedComments 01/10/2024 12:31 AM01/18/2024 3:18 PMDate ActivatedDate InactivatedComments 01/06/2024 4:06 PM10 10:56 PMDate ActivatedDate InactivatedComments 11/10/2022 5:40 AM11/19/2022 8:58 PMDate ActivatedDate InactivatedComments 10/22/2022 5:48 AM10/23/2022 5:00 PMTypeDate RecordedPatient Automated Weaver ExplanationACP-Advance Directive12/17/2022 2:10 PMDate ActivatedDate Inactivated Comments08/06/2024 3:00 PMDate ActivatedDate InactivatedComments12/13/2022 1:30 PM 12/14/2022 8:36 PMDate ActivatedDate InactivatedComments05/13/2021 9:24 AM 05/17/2021 4:01 PMDate ActivatedDate InactivatedComments05/01/2021 7:55 PM2 3:54 PMDate ActivatedDate SrrzsrgiljxRgkqkrmg83/18/2020 1:51 PM03/19/2020 5:35 PMNameRelationshipHealthcare Agent RelationshipCommunicationBob [facility] Secondary Decision Maker* * Date ActivatedDate InactivatedComments08/12/2024 3:27 PMDate ActivatedDate InactivatedComments08/06/2024 3:00 PM08/10/2024 11:12 PMDate ActivatedDate InactivatedComments12/13/2022 1:30 PM12/14/2022 8:36 PMDate ActivatedDate InactivatedComments05/13/2021 9:24 AM05/17/2021 4:01 PMDate ActivatedDate InactivatedComments05/01/2021 7:55 PM2 3:54 PMNameRelationshipHealthcare Agent RelationshipCommunicationBob United Medical CenterSecondary Decision Maker* * Date ActivatedDate InactivatedComments08/12/2024 3:27 PM08/17/2024 2:18 PMName RelationshipHealthcare Agent RelationshipCommunicationBob United Medical CenterSecondary Decision Maker* * TypeDate RecordedPatient RepresentativeExplanationACP-Advance Directive12/17/2022 2:10 PMACP-Advance Directive10/23/2024 9:59 AMLiving WillDate ActivatedDate InactivatedComments10/22/2024 3:38 PM10/26/2024 6:38 PMDate ActivatedDate InactivatedComments08/12/2024 3:27 PM08/17/2024 2:18 PMDate ActivatedDate InactivatedComments08/06/2024 3:00 PM08/10/2024 11:12 PMDate ActivatedDate InactivatedComments12/13/2022 1:30 PM12/14/2022 8:36 PMDate ActivatedDate InactivatedComments05/13/2021 9:24 AM05/17/2021 4:01 PMNameRelationshipHealthcare Agent RelationshipCommunicationBob [facility] Decision Maker* Date ActivatedDate InactivatedComments12/05/2024 5:34 PMDate ActivatedDate InactivatedComments07/13/2024 5:15 PM07/16/2024 5:48 PMDate ActivatedDate FjeqzlddzkfNczbykro75/11/2024 12:31 AM01/18/2024 3:18 PMDate ActivatedDate XganyxxvffrHefrniou77/7/2024 4:06 PM10 10:56 PMDate ActivatedDate InactivatedComments11/10/2022 5:40 AM11/19/2022 8:58 PMDate ActivatedDate PkhkcmhtrzqRkftjozs24/2/2025 12:14 AMDate ActivatedDate InactivatedComments 12/13/2024 3:44 PM12/17/2024 8:38 PMDate ActivatedDate InactivatedComments12/05/2024 5:34 PM12/11/2024 5:15 PMDate ActivatedDate InactivatedComments07/13/2024 5:15 PM 07/16/2024 5:48 PMDate ActivatedDate GzevgoxmyyiTuqoipas23/11/2024 12:31 AM 01/18/2024 3:18 PM Assessments Findings Encounter Date Body mass index Medical Established Patient with Vahid Nagy [employer] 08/27/2018 Obesity due to excess calories Medical E stablished Patient with Vahid Nagy [employer] 08/27/2018 F17.210 - Nicotine dependenc e, cigarettes, uncomplicated Established Patient with Zach Grimaldo [facility] 07/28/2018 F34.1 - Dysthymic disorder Establishe d Patient with Zach Grimaldo [facility] 07/28/2018 F41.1 - Generalized anxiety disorder Established Patient with Zach Grimaldo [facility] 07/28/2018 Assess diabetes mellitus Medical Establi shed Patient with Vahid Nagy [facility] 07/28/2018 Assess generalized anxiety disorder [facility] Established Patient with Vahid Nagy [facility] 07/28/2018 Assess lumbago Medical Established Patient with Vahid Nagy [facility] 07/28/2018 Assess perennial allergic rh initis with seasonal variation Medical Established Patient with Vahid Nagy [facility] 07/28/2018 Body mass index Medical Established Patient with Vahid Nagy [facility] 07/28/2018 Obesity due to excess calories Medical E stablished Patient with Vahid Nagy [facility] 07/28/2018 Assess tobacco abuse Medical Established Patient with Vahid Nagy [facility] 06/27/2018 Assessment of chronic lower back pain Me dical Established Patient with Vahid Nagy [facility] 06/27/2018 Obesity due to excess calories Medical E stablished Patient with Vahidchristiano Nagy [facility] 06/27/2018 Obesity due to excess calories Medical E stablished Patient with Vahid Nagy [facility] 05/30/2018 Findings Encounter Date Assess dermatitis Medical Established Patient with Vahid Nagy [facility] 09/30/2018 Assess urinary tract infection Medical E stablished Patient with Vahid Nagy [facility] 09/30/2018 Body mass index Medical Established Patient with Vahid Nagy [facility] 08/27/2018 Obesity due to excess calories Medical E stablished Patient with Vahid Nagy [facility] 08/27/2018 F17.210 - Nicotine dependenc e, cigarettes, uncomplicated Established Patient with Zach Grimaldo [facility] 07/28/2018 F34.1 - Dysthymic disorder Establishe d Patient with Zach Grimaldo [facility] 07/28/2018 F41.1 - Generalized anxiety disorder Established Patient with Zach Grimaldo [facility] 07/28/2018 Assess diabetes mellitus Medical Establi shed Patient with Vahid Nagy [facility] 07/28/2018 Assess generalized anxiety disorder [facility] Established Patient with Vahid Nagy [facility] 07/28/2018 Assess lumbago Medical Established Patient with Vahid Nagy [facility] 07/28/2018 Assess perennial allergic rh initis with seasonal variation Medical Established Patient with Vahid Nagy [facility] 07/28/2018 Body mass index Medical Established Patient with Vahid Nagy [facility] 07/28/2018 Obesity due to excess calories Medical E stablished Patient with Vahid Nagy [facility] 07/28/2018 Assess tobacco abuse Medical Established Patient with Vahid Nagy [facility] 06/27/2018 Assessment of chronic lower back pain Me dical Established Patient with Vahid Nagy [facility] 06/27/2018 Obesity due to excess calories Medical E stablished Patient with Vahid Nagy [facility] 06/27/2018 Obesity due to excess calories Medical E stablished Patient with Vahid Nagy [facility] 05/30/2018 Findings Encounter Date Body mass index [Body mass i ndex (BMI) 35.0-35.9 adult] [facility] Diabetes Risk Test Score was three score 01/12/2019 Medical Established Patient with Elena [facility] 01/12/2019 Fagerstrom Score was 0 01/12/2019 Medica l [facility] Limb pain of shoulder region Medical Est [facility]lished [facility] Obesity due to excess calories Medical [facility]abl[facility] PHQ-9: total score was 18 01/12/2019 Med ical [facility] Assess bronchitis Medical Established Patient with Vahid Nagy [facility] 12/11/2018 Irreducible ventral hernia Medical Estab lished Patient with Vahid Nagy [facility] 12/11/2018 Obesity due to excess calories Medical E stablished Patient with Vahid Nagy [facility] 12/11/2018 Z68.32 - Body mass index (BM I) 32.0-32.9 adult Medical Established Patient with Vahid Nagy [facility] 12/11/2018 Body mass index Medical Established Patient with Vahid Nagy [facility] 10/30/2018 Assess dermatitis Medical Established Patient with Vahid Nagy [facility] 09/30/2018 Assess urinary tract infection Medical E stablished Patient with Vahid Nagy [facility] 09/30/2018 Body mass index Medical Established Patient with Vahid Nagy [facility] 08/27/2018 Obesity due to excess calories Medical E stablished Patient with Vahid Nagy [facility] 08/27/2018 F17.210 - Nicotine dependenc e, cigarettes, uncomplicated BH Established Patient with Zach Grimaldo [facility] 07/28/2018 F34.1 - Dysthymic disorder Establishe d Patient with Zach Grimaldo [facility] 07/28/2018 F41.1 - Generalized anxiety disorder BH Established Patient with Zach Grimaldo [facility] 07/28/2018 Assess diabetes mellitus Medical Establi shed Patient with Vahid Nagy [facility] 07/28/2018 Assess generalized anxiety disorder [facility] иван Established Patient with Vahid Nagy [facility] 07/28/2018 Assess lumbago Medical Established Patient with Vahid Nagy [facility] 07/28/2018 Assess perennial allergic rh initis with seasonal variation Medical Established Patient with Vahid Nagy [facility] 07/28/2018 Body mass index Medical Established Patient with Vahid Nagy [facility] 07/28/2018 Obesity due to excess calories Medical E stablished Patient with Vahid Nagy [facility] 07/28/2018 Assess tobacco abuse Medical Established Patient with Vahid Nagy [facility] 06/27/2018 Assessment of chronic lower back pain Me dical Established Patient with Vahid Nagy [facility] 06/27/2018 Obesity due to excess calories Medical E stablished Patient with Vahid Nagy [facility] 06/27/2018 Obesity due to excess calories Medical E stablished Patient with Vahid Nagy [facility] 05/30/2018 Diagnosis Near syncope- Primary Syncope and collapse Fall from standing, initial encounter Hyponatremia Hyposmolality and/or hyponatremia Diagnosis Pain of left upper extremity Findings Encounter Date Body mass index Medical Established Patient with Vahid Nagy [facility] 01/22/2019 Obesity due to excess calories Medical E stablished Patient with Vahid Nagy [facility] 01/22/2019 Body mass index [Body mass i ndex (BMI) 35.0-35.9 adult] Medical Established Patient with Elena Diazer [facility] 01/12/2019 Diabetes Risk Test Score was three score 01/12/2019 Medical Established Patient with [facility] [facility] 01[facility]12[facility]2019 Fagerstrom Score was 0 01/12/2019 Medica l Established Patient with Elena Malik [facility] 01/12/2019 Limb pain of shoulder region Medical Est ablished Patient with Elenaradha Malik [facility] 01/12/2019 Obesity due to excess calories Medical E stablished Patient with Elena Diazer [facility] 01/12/2019 PHQ-9: total score was 18 01/12/2019 Med ical Established Patient with Elena Malik [facility] 01/12/2019 Assess bronchitis Medical Established Patient with Vahid Nagy [facility] 12/11/2018 Irreducible ventral hernia Medical Estab lished Patient with Vahid Nagy [facility] 12/11/2018 Obesity due to excess calories Medical E stablished Patient with Vahid Nagy [facility] 12/11/2018 Z68.32 - Body mass index (BM I) 32.0-32.9 adult Medical Established Patient with Vahid Nagy [facility] 12/11/2018 Body mass index Medical Established Patient with Vahid Nagy [facility] 10/30/2018 Assess dermatitis Medical Established Patient with Vahid Nagy [facility] 09/30/2018 Assess urinary tract infection Medical E stablished Patient with Vahidchristiano Nagy [facility] 09/30/2018 Body mass index Medical Established Patient with Vahid Nagy [facility] 08/27/2018 Obesity due to excess calories Medical E stablished Patient with Vahid Nagy [facility] 08/27/2018 F17.210 - Nicotine dependenc e, cigarettes, uncomplicated Established Patient with Zach Grimaldo [facility] 07/28/2018 F34.1 - Dysthymic disorder Establishe d Patient with Zach Grimaldo [facility] 07/28/2018 F41.1 - Generalized anxiety disorder Established Patient with Zach Grimaldo [facility] 07/28/2018 Assess diabetes mellitus Medical Establi shed Patient with Vahid Breweren [facility] 07/28/2018 Assess generalized anxiety disorder [facility] Established Patient with Vahid Angelita [facility] 07/28/2018 Assess lumbago Medical Established Patient with Vahid Nagy [facility] 07/28/2018 Assess perennial allergic rh initis with seasonal variation Medical Established Patient with Vahid Nagy [facility] 07/28/2018 Body mass index Medical Established Patient with Vahid Angelita [facility] 07/28/2018 Obesity due to excess calories Medical E stablished Patient with Vahid Nagy [facility] 07/28/2018 Assess tobacco abuse Medical Established Patient with Vahid Nagy [facility] 06/27/2018 Assessment of chronic lower back pain Me dical Established Patient with Vahid Angelita [facility] 06/27/2018 Obesity due to excess calories Medical E stablished Patient with Vahid Angelita [facility] 06/27/2018 Obesity due to excess calories Medical E stablished Patient with Vahid Angelita [facility] 05/30/2018 Findings Encounter Date Generalized anxiety disorder Establis hed Patient with Zach Grimaldo [facility] 02/19/2019 Persistent depressive disord er (dysthymia) Established Patient with Zach Grimaldo [facility] 02/19/2019 Body mass index Medical Established Patient with Vahid Nagy [facility] 02/19/2019 Generalized anxiety disorder Medical Est ablished Patient with Vahid Nagy [facility] 02/19/2019 Lumbago Medical Established Patient with Vahid Nagy [facility] 02/19/2019 Lumbar radiculopathy Medical Established Patient with Vahid Nagy [facility] 02/19/2019 Obesity due to excess calories Medical E stablished Patient with Vahid Nagy [facility] 02/19/2019 Body mass index Medical Established Patient with Vahid Nagy [facility] 01/22/2019 Obesity due to excess calories Medical E stablished Patient with Vahid Nagy [facility] 01/22/2019 Body mass index [Body mass i ndex (BMI) 35.0-35.9 adult] [facility] Diabetes Risk Test Score was three score 01/12/2019 [facility] Fagerstrom Score was 0 01/12/2019 [facility]ica l [facility] Limb pain of shoulder region [facility] Obesity due to excess calories [facility] PHQ-9: total score was 18 01/12/2019 [facility] Assess bronchitis Medical Established Patient with Vahid Nagy [facility] 12/11/2018 Irreducible ventral hernia Medical Estab lished Patient with Vahid Nagy [facility] 12/11/2018 Obesity due to excess calories Medical E stablished Patient with Vahid Nagy [facility] 12/11/2018 Z68.32 - Body mass index (BM I) 32.0-32.9 adult Medical Established Patient with Vahid Nagy [facility] 12/11/2018 Body mass index Medical Established Patient with Vahid Nagy [facility] 10/30/2018 Assess dermatitis Medical Established Patient with Vahid Nagy [facility] 09/30/2018 Assess urinary tract infection Medical E stablished Patient with Vahid Nagy [facility] 09/30/2018 Body mass index Medical Established Patient with Vahid Nagy [facility] 08/27/2018 Obesity due to excess calories Medical E stablished Patient with Vhaid Nagy [facility] 08/27/2018 F17.210 - Nicotine dependenc e, cigarettes, uncomplicated BH Established Patient with Zach Grimaldo [facility] 07/28/2018 F34.1 - Dysthymic disorder Establishe d Patient with Zach Grimaldo [facility] 07/28/2018 F41.1 - Generalized anxiety disorder Established Patient with Zach Grimaldo [facility] 07/28/2018 Assess diabetes mellitus Medical Establi shed Patient with Vahid Breweren [facility] 07/28/2018 Assess generalized anxiety disorder [facility] иван Established Patient with Vahid Breweren [facility] 07/28/2018 Assess lumbago Medical Established Patient with Vahid Breweren [facility] 07/28/2018 Assess perennial allergic rh initis with seasonal variation Medical Established Patient with Vahid Nagy [facility] 07/28/2018 Body mass index Medical Established Patient with Vahid Nagy [facility] 07/28/2018 Obesity due to excess calories Medical E stablished Patient with Vahid Nagy [facility] 07/28/2018 Assess tobacco abuse Medical Established Patient with Vahid Nagy [facility] 06/27/2018 Assessment of chronic lower back pain Me dical Established Patient with Vahid Breweren [facility] 06/27/2018 Obesity due to excess calories Medical E stablished Patient with Vahid Nagy [facility] 06/27/2018 Obesity due to excess calories Medical E stablished Patient with Vahid Nagy [facility] 05/30/2018 Diagnosis Abdominal pain, unspecified abdominal location- Primary Anxiety state Anxiety state, unspecified Findings Encounter Date Acute atopic conjunctivitis [Acute atopic conjunctivitis left eye] Medical Established Patient with Elena Diazer [facility] 03/03/2019 Acute sinusitis Medical Established Patient with Elena Diazer [facility] 03/03/2019 Body mass index [Body mass i ndex (BMI) 35.0-35.9 adult] Medical Established Patient with Elena King [facility] 03/03/2019 Generalized anxiety disorder BH Establis hed Patient with Zach Grimaldo [facility] 02/19/2019 Nicotine dependence Established Patie nt with Zach Grimaldo [facility] 02/19/2019 Persistent depressive disord er (dysthymia) Established Patient with Zach Grimaldo [facility] 02/19/2019 Body mass index Medical Established Patient with Vahid Angelita [facility] 02/19/2019 Generalized anxiety disorder Medical Est ablished Patient with Vahid Angelita [facility] 02/19/2019 Lumbago Medical Established Patient with Vahid Angelita [facility] 02/19/2019 Lumbar radiculopathy Medical Established Patient with Vahid Angelita [facility] 02/19/2019 Obesity due to excess calories Medical E stablished Patient with Vahid Angelita [facility] 02/19/2019 Body mass index Medical Established Patient with Vahid Nagy [facility] 01/22/2019 Obesity due to excess calories Medical E stablished Patient with Vahid Nagy [facility] 01/22/2019 Body mass index [Body mass i ndex (BMI) 35.0-35.9 adult] Medical Established Patient with Elena Malik [facility] 01/12/2019 Diabetes Risk Test Score was three score 01/12/2019 Medical Established Patient with Elena Malik [facility] 01/12/2019 Fagerstrom Score was 0 01/12/2019 Medica l Established Patient with Elena Malik [facility] 01/12/2019 Limb pain of shoulder region Medical Est ablished Patient with Elena Malik [facility] 01/12/2019 Obesity due to excess calories Medical E stablished Patient with Elena Malik [facility] 01/12/2019 PHQ-9: total score was 18 01/12/2019 Med ical Established Patient with Elena Malik [facility] 01/12/2019 Assess bronchitis Medical Established Patient with Vahid Nagy [facility] 12/11/2018 Irreducible ventral hernia Medical Estab lished Patient with Vahid Nagy [facility] 12/11/2018 Obesity due to excess calories Medical E stablished Patient with Vahid Nagy [facility] 12/11/2018 Z68.32 - Body mass index (BM I) 32.0-32.9 adult Medical Established Patient with Vahid Nagy [facility] 12/11/2018 Body mass index Medical Established Patient with Vahid Nagy [facility] 10/30/2018 Assess dermatitis Medical Established Patient with Vahid Nagy [facility] 09/30/2018 Assess urinary tract infection Medical E stablished Patient with Vahid Nagy [facility] 09/30/2018 Body mass index Medical Established Patient with Vahid Nagy [facility] 08/27/2018 Obesity due to excess calories Medical E stablished Patient with Vahid Nagy [facility] 08/27/2018 F17.210 - Nicotine dependenc e, cigarettes, uncomplicated Established Patient with Zach Grimaldo [facility] 07/28/2018 F34.1 - Dysthymic disorder Establishe d Patient with Zach Grimaldo [facility] 07/28/2018 F41.1 - Generalized anxiety disorder Established Patient with Zach Grimaldo [facility] 07/28/2018 Assess diabetes mellitus Medical Establi shed Patient with Vahid Nagy [facility] 07/28/2018 Assess generalized anxiety disorder [facility] Established Patient with Vahid Nagy [facility] 07/28/2018 Assess lumbago Medical Established Patient with Vahid Nagy [facility] 07/28/2018 Assess perennial allergic rh initis with seasonal variation Medical Established Patient with Vahid Nagy [facility] 07/28/2018 Body mass index Medical Established Patient with Vahid Nagy [facility] 07/28/2018 Obesity due to excess calories Medical E stablished Patient with Vahid Nagy [facility] 07/28/2018 Assess tobacco abuse Medical Established Patient with Vahid Nagy [facility] 06/27/2018 Assessment of chronic lower back pain Me dical Established Patient with Vahid Nagy [facility] 06/27/2018 Obesity due to excess calories Medical E stablished Patient with Vahid Nagy [facility] 06/27/2018 Obesity due to excess calories Medical E stablished Patient with Vahid Nagy [facility] 05/30/2018 Findings Encounter Date Obesity due to excess calories Medical E stablished Patient with Vahid Nagy [facility] 03/20/2019 Z68.36 - Body mass index (BM I) 36.0-36.9 adult Medical Established Patient with Vahid Nagy [facility] 03/20/2019 Acute atopic conjunctivitis [Acute atopic conjunctivitis left eye] Medical Established Patient with Elena Diazer [facility] 03/03/2019 Acute sinusitis Medical Established Patient with Elena Diazer [facility] 03/03/2019 Body mass index [Body mass i ndex (BMI) 35.0-35.9 adult] Medical Established Patient with Elena Diazer [facility] 03/03/2019 Generalized anxiety disorder Establis hed Patient with Zach Grimaldo [facility] 02/19/2019 Nicotine dependence Established Patie nt with aZch Grimaldo [facility] 02/19/2019 Persistent depressive disord er (dysthymia) Established Patient with Zach Grimaldo [facility] 02/19/2019 Body mass index Medical Established Patient with Vahid Angelita [facility] 02/19/2019 Generalized anxiety disorder Medical Est ablished Patient with Vahid Angelita [facility] 02/19/2019 Lumbago Medical Established Patient with Vahid Angelita [facility] 02/19/2019 Lumbar radiculopathy Medical Established Patient with Vahid Angelita [facility] 02/19/2019 Obesity due to excess calories Medical E stablished Patient with Vahid Angelita [facility] 02/19/2019 Body mass index Medical Established Patient with Vahid Angelita [facility] 01/22/2019 Obesity due to excess calories Medical E stablished Patient with Vahid Angelita [facility] 01/22/2019 Body mass index [Body mass i ndex (BMI) 35.0-35.9 adult] Medical Established Patient with Elena Malik [facility] 01/12/2019 Diabetes Risk Test Score was three score 01/12/2019 Medical Established Patient with Elena Malik [facility] 01/12/2019 Fagerstrom Score was 0 01/12/2019 [facility]ica [facility] Limb pain of shoulder region [facility] Obesity due to excess calories [facility] PHQ-9: total score was 18 01/12/2019 Med ical [facility] Assess bronchitis Medical Established Patient with Vahid Nagy [facility] 12/11/2018 Irreducible ventral hernia Medical Estab [facility] Obesity due to excess calories [facility] Z68.32 - Body mass index (BM I) 32.0-32.9 adult Medical [facility] Body mass index Medical Established Patient with Vahid Nagy [facility] 10/30/2018 Assess dermatitis Medical Established Patient with Vahid Nagy [facility] 09/30/2018 Assess urinary tract infection [facility] Body mass index Medical [facility] Obesity due to excess calories Medical E stablished Patient with Vahid Nagy [facility] 08/27/2018 F17.210 - Nicotine dependenc e, cigarettes, uncomplicated BH Established Patient with Zach Grimaldo [facility] 07/28/2018 F34.1 - Dysthymic disorder Establishe d Patient with Zach Grimaldo [facility] 07/28/2018 F41.1 - Generalized anxiety disorder Established Patient with Zach Grimaldo [facility] 07/28/2018 Assess diabetes mellitus Medical Establi shed [facility] Assess generalized anxiety disorder [facility] Assess lumbago Medical Established Patient with Vahid Nagy [facility] 07/28/2018 Assess perennial allergic rh initis with seasonal variation Medical Established Patient with Vahid Nagy [facility] 07/28/2018 Body mass index Medical Established Patient with Vahid Nagy [facility] 07/28/2018 Obesity due to excess calories Medical E stablished Patient with Vahid Nagy [facility] 07/28/2018 Assess tobacco abuse Medical Established Patient with Vahid Nagy [facility] 06/27/2018 Assessment of chronic lower back pain Me dical Established Patient with Vahid Nagy [facility] 06/27/2018 Obesity due to excess calories Medical E stablished Patient with Vahid Nagy [facility] 06/27/2018 Obesity due to excess calories Medical E stablished Patient with Vahid Nagy [facility] 05/30/2018 Findings Encounter Date 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 Established Patient with Zach Grimaldo [facility] 04/14/2019 F41.1 - Generalized anxiety disorder Established Patient with Zach Grimaldo [facility] 04/14/2019 Obesity due to excess calories Medical E stablished Patient with Vahid Nagy [facility] 04/14/2019 Z68.36 - Body mass index (BM I) 36.0-36.9 adult Medical Established Patient with Vahid Nagy [facility] 04/14/2019 Obesity due to excess calories Medical E stablished Patient with Vahid Nagy [facility] 03/20/2019 Z68.36 - Body mass index (BM I) 36.0-36.9 adult Medical Established Patient with Vahid Nagy [facility] 03/20/2019 Acute atopic conjunctivitis [Acute atopic conjunctivitis left eye] Medical Established Patient with Elena Malik [facility] 03/03/2019 Acute sinusitis Medical Established Patient with Elena Diazer [facility] 03/03/2019 Body mass index [Body mass i ndex (BMI) 35.0-35.9 adult] Medical Established Patient with Elena King [facility] 03/03/2019 Generalized anxiety disorder Establis hed Patient with Zach Grimaldo [facility] 02/19/2019 Nicotine dependence Established Patie nt with Zach Grimaldo [facility] 02/19/2019 Persistent depressive disord er (dysthymia) Established Patient with Zach Grimaldo [facility] 02/19/2019 Body mass index Medical Established Patient with Vahid Breweren [facility] 02/19/2019 Generalized anxiety disorder Medical Est ablished Patient with Vahid Angelita [facility] 02/19/2019 Lumbago Medical Established Patient with Vahid Breweren [facility] 02/19/2019 Lumbar radiculopathy Medical Established Patient with Vahid Nagy [facility] 02/19/2019 Obesity due to excess calories Medical E stablished Patient with Vahid Nagy [facility] 02/19/2019 Body mass index Medical Established Patient with Vahid Nagy [facility] 01/22/2019 Obesity due to excess calories Medical E stablished Patient with Vahid Nagy [facility] 01/22/2019 Body mass index [Body mass i ndex (BMI) 35.0-35.9 adult] Medical Established Patient with Elena Malik [facility] 01/12/2019 Diabetes Risk Test Score was three score 01/12/2019 Medical Established Patient with Elena Malik [facility] 01/12/2019 Fagerstrom Score was 0 01/12/2019 Medica l Established Patient with Elena Malik [facility] 01/12/2019 Limb pain of shoulder region Medical Est ablished Patient with Elena Malik [facility] 01/12/2019 Obesity due to excess calories Medical E stablished Patient with Elena Malik [facility] 01/12/2019 PHQ-9: total score was 18 01/12/2019 [facility] Assess bronchitis Medical Established Patient with Vahid Nagy [facility] 12/11/2018 Irreducible ventral hernia Medical Estab lished Patient with Vahid Nagy [facility] 12/11/2018 Obesity due to excess calories Medical E stablished Patient with Vahid Nagy [facility] 12/11/2018 Z68.32 - Body mass index (BM I) 32.0-32.9 adult Medical Established Patient with Vahid Nagy [facility] 12/11/2018 Body mass index Medical Established Patient with Vahid Nagy [facility] 10/30/2018 Assess dermatitis Medical Established Patient with Vahid Nagy [facility] 09/30/2018 Assess urinary tract infection Medical E stablished Patient with Vahid Nagy [facility] 09/30/2018 Body mass index Medical Established Patient with Vahid Nagy [facility] 08/27/2018 Obesity due to excess calories Medical E stablished Patient with Vahid Nagy [facility] 08/27/2018 F17.210 - Nicotine dependenc e, cigarettes, uncomplicated BH Established Patient with Zach Grimaldo [facility] 07/28/2018 F34.1 - Dysthymic disorder Establishe d Patient with Zach Grimaldo [facility] 07/28/2018 F41.1 - Generalized anxiety disorder Established Patient with Zach Grimaldo [facility] 07/28/2018 Assess diabetes mellitus Medical Establi shed Patient with Vahid Nagy [facility] 07/28/2018 Assess generalized anxiety disorder [facility] Established Patient with Vahid Nagy [facility] 07/28/2018 Assess lumbago Medical Established Patient with Vahid Nagy [facility] 07/28/2018 Assess perennial allergic rh initis with seasonal variation Medical Established Patient with Vahid Nagy [facility] 07/28/2018 Body mass index Medical Established Patient with Vahid Nagy [facility] 07/28/2018 Obesity due to excess calories Medical E stablished Patient with Vahid Nagy [facility] 07/28/2018 Assess tobacco abuse Medical Established Patient with Vahid Nagy [facility] 06/27/2018 Assessment of chronic lower back pain Me dical Established Patient with Vahid Nagy [facility] 06/27/2018 Obesity due to excess calories Medical E stablished Patient with Vahid Nagy [facility] 06/27/2018 Obesity due to excess calories Medical E stablished Patient with Vahid Nagy [facility] 05/30/2018 Findings Encounter Date Z68.37 - Body mass index (BM I) 37.0-37.9 adult Medical Established Patient with Vahid Nagy [facility] 05/01/2019 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 Established Patient with Zach Grimaldo [facility] 04/14/2019 F41.1 - Generalized anxiety disorder Established Patient with Zach Grimaldo [facility] 04/14/2019 Obesity due to excess calories Medical E stablished Patient with Vahid Nagy [facility] 04/14/2019 Z68.36 - Body mass index (BM I) 36.0-36.9 adult Medical Established Patient with Vahid Nagy [facility] 04/14/2019 Obesity due to excess calories Medical E stablished Patient with Vahid Nagy [facility] 03/20/2019 Z68.36 - Body mass index (BM I) 36.0-36.9 adult Medical Established Patient with Vahid Nagy [facility] 03/20/2019 Acute atopic conjunctivitis [Acute atopic conjunctivitis left eye] Medical Established Patient with Elena King [facility] 03/03/2019 Acute sinusitis Medical Established Patient with Elena King [facility] 03/03/2019 Body mass index [Body mass i ndex (BMI) 35.0-35.9 adult] Medical Established Patient with Elena King [facility] 03/03/2019 Generalized anxiety disorder Establis hed Patient with Zach Grimaldo [facility] 02/19/2019 Nicotine dependence Established Patie nt with Zach Grimaldo [facility] 02/19/2019 Persistent depressive disord er (dysthymia) Established Patient with Zach Grimaldo [facility] 02/19/2019 Body mass index Medical Established Patient with Vahid Nagy [facility] 02/19/2019 Generalized anxiety disorder Medical Est ablished Patient with Vahid Nagy [facility] 02/19/2019 Lumbago Medical Established Patient with Vahid Nagy [facility] 02/19/2019 Lumbar radiculopathy Medical Established Patient with Vahid Nagy [facility] 02/19/2019 Obesity due to excess calories Medical E stablished Patient with Vahid Nagy [facility] 02/19/2019 Body mass index Medical Established Patient with Vahid Nagy [facility] 01/22/2019 Obesity due to excess calories Medical E stablished Patient with Vahid Nagy [facility] 01/22/2019 Body mass index [Body mass i ndex (BMI) 35.0-35.9 adult] Medical Established Patient with Elena Diazer [facility] 01/12/2019 Diabetes Risk Test Score was three score 01/12/2019 Medical Established Patient with Elena Diazer [facility] 01/12/2019 Fagerstrom Score was 0 01/12/2019 Medica l Established Patient with Elena Diazer [facility] 01/12/2019 Limb pain of shoulder region Medical Est ablished Patient with Elena Malik [facility] 01/12/2019 Obesity due to excess calories Medical E stablished Patient with Elena Diazer [facility] 01/12/2019 PHQ-9: total score was 18 01/12/2019 Med ical Established Patient with Elena Malik [facility] 01/12/2019 Assess bronchitis Medical Established Patient with Vahid Nagy [facility] 12/11/2018 Irreducible ventral hernia Medical Estab lished Patient with Vahid Breweren [facility] 12/11/2018 Obesity due to excess calories Medical E stablished Patient with Vahid Nagy [facility] 12/11/2018 Z68.32 - Body mass index (BM I) 32.0-32.9 adult Medical Established Patient with Vahid Angelita [facility] 12/11/2018 Body mass index Medical Established Patient with Vahid Angelita [facility] 10/30/2018 Assess dermatitis Medical Established Patient with Vahid Angelita [facility] 09/30/2018 Assess urinary tract infection Medical E stablished Patient with Vahid Angelita [facility] 09/30/2018 Body mass index Medical Established Patient with Vahid Angelita [facility] 08/27/2018 Obesity due to excess calories Medical E stablished Patient with Vahid Angelita [facility] 08/27/2018 F17.210 - Nicotine dependenc e, cigarettes, uncomplicated Established Patient with Zach Grimaldo [facility] 07/28/2018 F34.1 - Dysthymic disorder Establishe d Patient with Zach Grimaldo [facility] 07/28/2018 F41.1 - Generalized anxiety disorder Established Patient with Zach Grimaldo [facility] 07/28/2018 Assess diabetes mellitus Medical Establi shed Patient with Vahid Nagy [facility] 07/28/2018 Assess generalized anxiety disorder [facility] иван Established Patient with Vahid Nagy [facility] 07/28/2018 Assess lumbago Medical Established Patient with Vahid Nagy [facility] 07/28/2018 Assess perennial allergic rh initis with seasonal variation Medical Established Patient with Vahid Nagy [facility] 07/28/2018 Body mass index Medical Established Patient with Vahid Nagy [facility] 07/28/2018 Obesity due to excess calories Medical E stablished Patient with Vahid Nagy [facility] 07/28/2018 Assess tobacco abuse Medical Established Patient with Vahid Nagy [facility] 06/27/2018 Assessment of chronic lower back pain Me dical Established Patient with Vahid Nagy [facility] 06/27/2018 Obesity due to excess calories Medical E stablished Patient with Vahid Nagy [facility] 06/27/2018 Obesity due to excess calories Medical E stablished Patient with Vahid Nagy [facility] 05/30/2018 Diagnosis Contusion of left hand, initial encounter- Primary Diagnosis Acute respiratory failure with hypoxia and hypercapnia (HCC) Viral pneumonia Viral pneumonia, unspecified Acute pulmonary edema (HCC) Acute edema of lung, unspecified Diagnosis Benign paroxysmal positional vertigo, unspecified laterality Findings Encounter Date Depressive disorder Telebehavioral alth with Leah Short [facility] 08/26/2019 Generalized anxiety disorder [facility] with Leah Short [facility] 08/26/2019 Z68.37 - Body mass index (BM I) 37.0-37.9 adult Medical Established Patient with Vahid Nagy [facility] 05/01/2019 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 Established Patient with Zach Grimaldo [facility] 04/14/2019 F41.1 - Generalized anxiety disorder Established Patient with Zach Grimaldo [facility] 04/14/2019 Obesity due to excess calories Medical E stablished Patient with Vahid Nagy [facility] 04/14/2019 Z68.36 - Body mass index (BM I) 36.0-36.9 adult Medical Established Patient with Vahid Nagy [facility] 04/14/2019 Obesity due to excess calories Medical E stablished Patient with Vahid Nagy [employer] 03/20/2019 Z68.36 - Body mass index (BM I) 36.0-36.9 adult Medical Established Patient with Vahid Nagy [facility] 03/20/2019 Acute atopic conjunctivitis [Acute atopic conjunctivitis left eye] Medical Established Patient with Elena Diazer [employer] 03/03/2019 Acute sinusitis Medical Established Patient with Elena King [facility] 03/03/2019 Body mass index [Body mass i ndex (BMI) 35.0-35.9 adult] Medical Established Patient with Elena King [facility] 03/03/2019 Generalized anxiety disorder BH Establis hed Patient with Zach Grimaldo [facility] 02/19/2019 Nicotine dependence BH Established Patie nt with Zach Grimaldo [facility] 02/19/2019 Persistent depressive disord er (dysthymia) Established Patient with Zach Grimaldo [facility] 02/19/2019 Body mass index Medical Established Patient with Vahid Nagy [facility] 02/19/2019 Generalized anxiety disorder Medical Est ablished Patient with Vahid Nagy [facility] 02/19/2019 Lumbago Medical Established Patient with Vahid Nagy [facility] 02/19/2019 Lumbar radiculopathy Medical Established Patient with Vahid Nagy [facility] 02/19/2019 Obesity due to excess calories Medical E stablished Patient with Vahid Nagy [facility] 02/19/2019 Body mass index Medical Established Patient with Vahid Nagy [facility] 01/22/2019 Obesity due to excess calories Medical E stablished Patient with Vahidchristiano Nagy [facility] 01/22/2019 Body mass index [Body mass i ndex (BMI) 35.0-35.9 adult] Medical Established Patient with Elena King [facility] 01/12/2019 Diabetes Risk Test Score was three score 01/12/2019 Medical Established Patient with Elena King [facility] 01/12/2019 Fagerstrom Score was 0 01/12/2019 Medica l Established Patient with Elena King [employer] 01/12/2019 Limb pain of shoulder region Medical Est ablished Patient with Elena King [employer] 01/12/2019 Obesity due to excess calories Medical E stablished Patient with Elena King [employer] 01/12/2019 PHQ-9: total score was 18 01/12/2019 Med ical Established Patient with Elena King [facility] 01/12/2019 Assess bronchitis Medical Established Patient with Vahid Nagy [facility] 12/11/2018 Irreducible ventral hernia Medical Estab lished Patient with Vahid Angelita [facility] 12/11/2018 Obesity due to excess calories Medical E stablished Patient with Vahid Nagy [facility] 12/11/2018 Z68.32 - Body mass index (BM I) 32.0-32.9 adult Medical Established Patient with Vahid Nagy [facility] 12/11/2018 Body mass index Medical Established Patient with Vahid Angelita [facility] 10/30/2018 Assess dermatitis Medical Established Patient with Vahid Nagy [facility] 09/30/2018 Assess urinary tract infection Medical E stablished Patient with Vahid Angelita [facility] 09/30/2018 Body mass index Medical Established Patient with Vahid Angelita [facility] 08/27/2018 Obesity due to excess calories Medical E stablished Patient with Vahidchristiano Nagy [facility] 08/27/2018 F17.210 - Nicotine dependenc e, cigarettes, uncomplicated Established Patient with Zachernestina Grimaldo [facility] 07/28/2018 F34.1 - Dysthymic disorder Establishe d Patient with Zachernestina Grimaldo [facility] 07/28/2018 F41.1 - Generalized anxiety disorder Established Patient with Zach Grimaldo [facility] 07/28/2018 Assess diabetes mellitus Medical Establi shed Patient with Vahid Angelita [facility] 07/28/2018 Assess generalized anxiety disorder [facility] Established Patient with Vahid Angelita [facility] 07/28/2018 Assess lumbago Medical Established Patient with Vahid Angelita [facility] 07/28/2018 Assess perennial allergic rh initis with seasonal variation Medical Established Patient with Vahid Angelita [facility] 07/28/2018 Body mass index Medical Established Patient with Vahid Angelita [facility] 07/28/2018 Obesity due to excess calories Medical E stablished Patient with Vahid Angelita [facility] 07/28/2018 Assess tobacco abuse Medical Established Patient with Vahid Angelita [facility] 06/27/2018 Assessment of chronic lower back pain Me dical Established Patient with Vahid Angelita [facility] 06/27/2018 Obesity due to excess calories Medical E stablished Patient with Vahid Angelita [facility] 06/27/2018 Obesity due to excess calories Medical E stablished Patient with Vahid Angelita [facility] 05/30/2018 Diagnosis ASHD (arteriosclerotic heart disease) Coronary atherosclerosis of unspecified type of vessel, sitka or graft S/P angioplasty with stent Postsurgical [...] Short [facility] 08/26/2019 [facility]ized [facility] 08/26/2019 Z68.37 - Body mass index (BM I) 37.0-37.9 adult Medical Established Patient with Vahid Angelita [facility] 05/01/2019 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 Established Patient with Zach Grimaldo [facility] 04/14/2019 F41.1 - Generalized anxiety disorder Established Patient with Zach Grimaldo [facility] 04/14/2019 Obesity due to excess calories Medical E stablished Patient with Vahidchristiano Breweren [facility] 04/14/2019 Z68.36 - Body mass index (BM I) 36.0-36.9 adult Medical Established Patient with Vahid Angelita [facility] 04/14/2019 Obesity due to excess calories Medical E stablished Patient with Vahid Angelita [facility] 03/20/2019 Z68.36 - Body mass index (BM I) 36.0-36.9 adult Medical Established Patient with Vahid Nagy [facility] 03/20/2019 Acute atopic conjunctivitis [Acute atopic conjunctivitis left eye] Medical Established Patient with Elena Diazer [facility] 03/03/2019 Acute sinusitis Medical Established Patient with Elena Malik [facility] 03/03/2019 Body mass index [Body mass i ndex (BMI) 35.0-35.9 adult] Medical Established Patient with Elena Malik [facility] 03/03/2019 Generalized anxiety disorder Establis hed Patient with Zach Grimaldo [facility] 02/19/2019 Nicotine dependence Established Patie nt with Zach Grimaldo [facility] 02/19/2019 Persistent depressive disord er (dysthymia) Established Patient with Zach Grimaldo [facility] 02/19/2019 Body mass index Medical Established Patient with Vahid Nagy [facility] 02/19/2019 Generalized anxiety disorder Medical Est ablished Patient with Vahid Nagy [facility] 02/19/2019 Lumbago Medical Established Patient with Vahid Nagy [facility] 02/19/2019 Lumbar radiculopathy Medical Established Patient with Vahid Nagy [facility] 02/19/2019 Obesity due to excess calories Medical E stablished Patient with Vahid Nagy [facility] 02/19/2019 Body mass index Medical Established Patient with Vahid Nagy [facility] 01/22/2019 Obesity due to excess calories Medical E stablished Patient with Vahid Nagy [facility] 01/22/2019 Body mass index [Body mass i ndex (BMI) 35.0-35.9 adult] [facility] Diabetes Risk Test Score was three score 01/12/2019 [facility] Fagerstrom Score was 0 01/12/2019 Medica l [facility] Limb pain of shoulder region Medical [facility] Obesity due to excess calories [facility] PHQ-9: total score was 18 01/12/2019 Med ical [facility] Assess bronchitis Medical Established Patient with Vahid Nagy [facility] 12/11/2018 Irreducible ventral hernia Medical Estab lished Patient with Vahid Nagy [facility] 12/11/2018 Obesity due to excess calories Medical E stablished Patient with Vahid Nagy [facility] 12/11/2018 Z68.32 - Body mass index (BM I) 32.0-32.9 adult Medical Established Patient with Vahid Nagy [facility] 12/11/2018 Body mass index Medical Established Patient with Vahid Nagy [facility] 10/30/2018 Assess dermatitis Medical Established Patient with Vahid Nagy [facility] 09/30/2018 Assess urinary tract infection Medical E stablished Patient with Vahid Nagy [facility] 09/30/2018 Body mass index Medical Established Patient with Vahid Nagy [facility] 08/27/2018 Obesity due to excess calories Medical E stablished Patient with Vahid Nagy [facility] 08/27/2018 F17.210 - Nicotine dependenc e, cigarettes, uncomplicated BH Established Patient with Zach Grimaldo [facility] 07/28/2018 F34.1 - Dysthymic disorder Establishe d Patient with Zach Grimaldo [facility] 07/28/2018 F41.1 - Generalized anxiety disorder BH Established Patient with Zach Grimaldo [facility] 07/28/2018 Assess diabetes mellitus Medical Establi shed Patient with Vahid Nagy [facility] 07/28/2018 Assess generalized anxiety disorder Medi иван Established Patient with Vahid Nagy [facility] 07/28/2018 Assess lumbago Medical Established Patient with Vahid Nagy [facility] 07/28/2018 Assess perennial allergic rh initis with seasonal variation Medical Established Patient with Vahid Angelita [facility] 07/28/2018 Body mass index Medical Established Patient with Vahid Angelita [facility] 07/28/2018 Obesity due to excess calories Medical E stablished Patient with Vahidchristiano Nagy [facility] 07/28/2018 Assess tobacco abuse Medical Established Patient with Vahid Nagy [facility] 06/27/2018 Assessment of chronic lower back pain Me dical Established Patient with Vahidchristiano Nagy [facility] 06/27/2018 Obesity due to excess calories Medical E stablished Patient with Vahid Angelita [facility] 06/27/2018 Obesity due to excess calories Medical E stablished Patient with Vahid Nagy [facility] 05/30/2018 Diagnosis ASHD (arteriosclerotic heart disease) Coronary atherosclerosis of unspecified type of vessel, sitka or graft S/P angioplasty with stent Postsurgical percutaneous transluminal coronary angioplasty status Mixed hyperlipidemia Essential hypertension Unspecified essential hypertension Tobacco abuse counseling Counseling on substance use and abuse Bilateral carotid artery disease, unspecified type (HCC) PVD (peripheral vascular disease) (HCC) Peripheral vascular disease, unspecified Abdominal aortic aneurysm (AAA) without rupture ([facility]) SOB (shortness of breath) Shortness of breath Diagnosis Chronic obstructive pulmonary disease with acute exacerbation (HCC) Obstructive chronic bronchitis with exacerbation Pneumonia due to organism Pneumonia due to other specified organism Cough Chronic bilateral low back pain with bilateral sciatica Diagnosis Opioid overdose, accidental or unintentional, initial encounter ([facility]) Pneumonia due to organism Pneumonia due to other specified organism Findings Encounter Date Depression Established Patie nt with Nitza Mark [facility] 10/21/2019 No depressive disorder Established Usha ac with Nitzashanita Mark [facility] 10/21/2019 F63.89 - Other impulse disor ders : Drug seeking behavior Medical Established Patient with Shawna Holliday [facility] 10/21/2019 Obesity due to excess calories Medical E stablished Patient with Shawna Holliday [employer] 10/21/2019 S76.211D - Strain of adducto r muscle, fascia and tendon of right thigh, subsequent encounter Medical Established Patient with Shawna Holliday [employer] 10/21/2019 Z68.35 - Body mass index (BM I) 35.0-35.9, adult Medical Established Patient with Shawna Holliday [employer] 10/21/2019 Depressive disorder Established Patie nt with Leah Short [facility] 09/24/2019 Generalized anxiety disorder Establis hed Patient with Leah Short [facility] 09/24/2019 M54.5 - Low back pain Medical Establishe d Patient with Shawna Holliday [employer] 09/24/2019 Obesity due to excess calories Medical E stablished Patient with Shawna Holliday [employer] 09/24/2019 Z68.25 - Body mass index (BM I) 25.0-25.9, adult Medical Established Patient with Shawna Holliday [employer] 09/24/2019 Depressive disorder Telebehavioral He alth with Leah Short [facility] 09/15/2019 Generalized anxiety disorder [facility] Short [facility] 09/15/2019 Depressive disorder Telebehavioral He alth with Leah Short [facility] 08/26/2019 Generalized anxiety disorder [facility] Leah Short [facility] 08/26/2019 Z68.37 - Body mass index (BM I) 37.0-37.9 adult Medical Established Patient with Vahid Nagy [facility] 05/01/2019 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 Established Patient with Zach Grimaldo [facility] 04/14/2019 F41.1 - Generalized anxiety disorder Established Patient with Zach Grimaldo [facility] 04/14/2019 Obesity due to excess calories Medical E stablished Patient with Vahid Angelita [facility] 04/14/2019 Z68.36 - Body mass index (BM I) 36.0-36.9 adult Medical Established Patient with Vahid Angelita [facility] 04/14/2019 Obesity due to excess calories Medical E stablished Patient with Vahid Angelita [facility] 03/20/2019 Z68.36 - Body mass index (BM I) 36.0-36.9 adult Medical Established Patient with Vahid Breweren [facility] 03/20/2019 Acute atopic conjunctivitis [Acute atopic conjunctivitis left eye] Medical Established Patient with Elena King [facility] 03/03/2019 Acute sinusitis Medical Established Patient with Elena King [facility] 03/03/2019 Body mass index [Body mass i ndex (BMI) 35.0-35.9 adult] Medical Established Patient with Elena King [facility] 03/03/2019 Generalized anxiety disorder BH Establis hed Patient with Zach Grimaldo [facility] 02/19/2019 Nicotine dependence Established Patie nt with Zach Grimaldo [facility] 02/19/2019 Persistent depressive disord er (dysthymia) BH Established Patient with Zach Grimaldo [facility] 02/19/2019 Body mass index Medical Established Patient with Vahid Breweren [facility] 02/19/2019 Generalized anxiety disorder Medical Est ablished Patient with Vahid Angelita [facility] 02/19/2019 Lumbago Medical Established Patient with Vahid Angelita [facility] 02/19/2019 Lumbar radiculopathy Medical Established Patient with Vahidchristiano Breweren [facility] 02/19/2019 Obesity due to excess calories Medical E stablished Patient with Vahidchristiano Breweren [facility] 02/19/2019 Body mass index Medical Established Patient with Vahid Breweren [facility] 01/22/2019 Obesity due to excess calories Medical E stablished Patient with Vahidchristiano Breweren [facility] 01/22/2019 Body mass index [Body mass i ndex (BMI) 35.0-35.9 adult] Medical Established Patient with Elena King [facility] 01/12/2019 Diabetes Risk Test Score was three score 01/12/2019 Medical Established Patient with Elena King [facility] 01/12/2019 Fagerstrom Score was 0 01/12/2019 Medica l Established Patient with Elena King [facility] 01/12/2019 Limb pain of shoulder region Medical Est ablished Patient with Elena King [facility] 01/12/2019 Obesity due to excess calories Medical E stablished Patient with Elena King [facility] 01/12/2019 PHQ-9: total score was 18 01/12/2019 Med ical Established Patient with Elena King [facility] 01/12/2019 Assess bronchitis Medical Established Patient with Vahid Angelita [facility] 12/11/2018 Irreducible ventral hernia Medical Estab lished Patient with Vahid Angelita [facility] 12/11/2018 Obesity due to excess calories Medical E stablished Patient with Vahid Angelita [facility] 12/11/2018 Z68.32 - Body mass index (BM I) 32.0-32.9 adult Medical Established Patient with Vahid Nagy [facility] 12/11/2018 Body mass index Medical Established Patient with Vahid Nagy [facility] 10/30/2018 Assess dermatitis Medical Established Patient with Vahid Nagy [facility] 09/30/2018 Assess urinary tract infection Medical E stablished Patient with Vahid Nagy [facility] 09/30/2018 Body mass index Medical Established Patient with Vahid Nagy [facility] 08/27/2018 Obesity due to excess calories Medical E stablished Patient with Vahid Nagy [facility] 08/27/2018 F17.210 - Nicotine dependenc e, cigarettes, uncomplicated BH Established Patient with Zach Grimaldo [facility] 07/28/2018 F34.1 - Dysthymic disorder Establishe d Patient with Zach Grimaldo [facility] 07/28/2018 F41.1 - Generalized anxiety disorder Established Patient with Zach Grimaldo [facility] 07/28/2018 Assess diabetes mellitus Medical Establi shed Patient with Vahid Nagy [facility] 07/28/2018 Assess generalized anxiety disorder [facility] Established Patient with Vahidchristiano Nagy [facility] 07/28/2018 Assess lumbago Medical Established Patient with Vahidchristiano Nagy [facility] 07/28/2018 Assess perennial allergic rh initis with seasonal variation Medical Established Patient with Vahid Nagy [facility] 07/28/2018 Body mass index Medical Established Patient with Vahid Nagy [facility] 07/28/2018 Obesity due to excess calories Medical E stablished Patient with Vahid Nagy [facility] 07/28/2018 Assess tobacco abuse Medical Established Patient with Vahidchristiano Nagy [facility] 06/27/2018 Assessment of chronic lower back pain Me dical Established Patient with Vahidchristiano Nagy [facility] 06/27/2018 Obesity due to excess calories Medical E stablished Patient with Vahid Angelita [facility] 06/27/2018 Obesity due to excess calories Medical E stablished Patient with Vahid Nagy [facility] 05/30/2018 Diagnosis Groin strain, right, initial encounter Findings Encounter Date Depressive disorder Established Patie nt with Nitza Mark [facility] 10/21/2019 F63.89 - Other impulse disor ders : Drug seeking behavior Medical Established Patient with Shawna Hele [facility] 10/21/2019 Obesity due to excess calories Medical E stablished Patient with Shawna Hele [facility] 10/21/2019 S76.211D - Strain of adducto r muscle, fascia and tendon of right thigh, subsequent encounter Medical Established Patient with Shawna Holliday [facility] 10/21/2019 Z68.35 - Body mass index (BM I) 35.0-35.9, adult Medical Established Patient with Shawna Holliday [employer] 10/21/2019 Depressive disorder Established Patie nt with Leah Short [facility] 09/24/2019 Generalized anxiety disorder Establis hed Patient with Leah Short [facility] 09/24/2019 M54.5 - Low back pain Medical Establishe d Patient with Shawna Holliday [employer] 09/24/2019 Obesity due to excess calories Medical E stablished Patient with Shawnaariana Hele [employer] 09/24/2019 Z68.25 - Body mass index (BM I) 25.0-25.9, adult Medical Established Patient with Shawna Holliday [employer] 09/24/2019 Depressive disorder Telebehavioral He alth with Leah Short [facility] 09/15/2019 Generalized anxiety disorder [facility] Leah Short [facility] 09/15/2019 Depressive disorder Telebehavioral He alth with Leah Short [facility] 08/26/2019 Generalized anxiety disorder [facility] with Leah Short [facility] 08/26/2019 Z68.37 - Body mass index (BM I) 37.0-37.9 adult Medical Established Patient with Vahid Breweren [facility] 05/01/2019 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 Established Patient with Zach Grimaldo [facility] 04/14/2019 F41.1 - Generalized anxiety disorder Established Patient with Zach Grimaldo [facility] 04/14/2019 Obesity due to excess calories Medical E stablished Patient with Vahid Angelita [facility] 04/14/2019 Z68.36 - Body mass index (BM I) 36.0-36.9 adult Medical Established Patient with Vahid Angelita [facility] 04/14/2019 Obesity due to excess calories Medical E stablished Patient with Vahid Angelita [facility] 03/20/2019 Z68.36 - Body mass index (BM I) 36.0-36.9 adult Medical Established Patient with Vahid Angelita [employer] 03/20/2019 Acute atopic conjunctivitis [Acute atopic conjunctivitis left eye] Medical Established Patient with Elena King [employer] 03/03/2019 Acute sinusitis Medical Established Patient with Elena King [employer] 03/03/2019 Body mass index [Body mass i ndex (BMI) 35.0-35.9 adult] Medical Established Patient with Elena King [facility] 03/03/2019 Generalized anxiety disorder BH Establis hed Patient with Zach Grimaldo [facility] 02/19/2019 Nicotine dependence BH Established Patie nt with Zach Grimaldo [facility] 02/19/2019 Persistent depressive disord er (dysthymia) BH Established Patient with Zach Grimaldo [facility] 02/19/2019 Body mass index Medical Established Patient with Vahid Nagy [facility] 02/19/2019 Generalized anxiety disorder Medical Est ablished Patient with Vahidchristiano Breweren [facility] 02/19/2019 Lumbago Medical Established Patient with Vahidchristiano Breweren [facility] 02/19/2019 Lumbar radiculopathy Medical Established Patient with Vahidchristiano Nagy [facility] 02/19/2019 Obesity due to excess calories Medical E stablished Patient with Vahidchristiano Breweren [facility] 02/19/2019 Body mass index Medical Established Patient with Vahid Nagy [facility] 01/22/2019 Obesity due to excess calories Medical E stablished Patient with Vahid Nagy [facility] 01/22/2019 Body mass index [Body mass i ndex (BMI) 35.0-35.9 adult] Medical Established Patient with Elena King [facility] 01/12/2019 Diabetes Risk Test Score was three score 01/12/2019 Medical Established Patient with Elena King [facility] 01/12/2019 Fagerstrom Score was 0 01/12/2019 Medica l Established Patient with Elena King [facility] 01/12/2019 Limb pain of shoulder region Medical Est ablished Patient with Elena King [facility] 01/12/2019 Obesity due to excess calories Medical E stablished Patient with Elena King [facility] 01/12/2019 PHQ-9: total score was 18 01/12/2019 Med ical Established Patient with Elena King [facility] 01/12/2019 Assess bronchitis Medical Established Patient with Vahid Nagy [facility] 12/11/2018 Irreducible ventral hernia Medical Estab lished Patient with Vahid Nagy [facility] 12/11/2018 Obesity due to excess calories Medical E stablished Patient with Vahidchristiano Nagy [facility] 12/11/2018 Z68.32 - Body mass index (BM I) 32.0-32.9 adult Medical Established Patient with Vahid Nagy [facility] 12/11/2018 Body mass index Medical Established Patient with Vahid Angelita [facility] 10/30/2018 Assess dermatitis Medical Established Patient with Vahid Angelita [facility] 09/30/2018 Assess urinary tract infection Medical E stablished Patient with Vahid Nagy [facility] 09/30/2018 Body mass index Medical Established Patient with Vahid Nagy [facility] 08/27/2018 Obesity due to excess calories Medical E stablished Patient with Vahid Nagy [facility] 08/27/2018 F17.210 - Nicotine dependenc e, cigarettes, uncomplicated BH Established Patient with Zach Grimlado [facility] 07/28/2018 F34.1 - Dysthymic disorder Establishe d Patient with Zach Grimaldo [facility] 07/28/2018 F41.1 - Generalized anxiety disorder Established Patient with Zach Grimaldo [facility] 07/28/2018 Assess diabetes mellitus Medical Establi shed Patient with Vahid Nagy [facility] 07/28/2018 Assess generalized anxiety disorder [facility] иван Established Patient with Vahid Nagy [facility] 07/28/2018 Assess lumbago Medical Established Patient with Vahidchristiano Nagy [facility] 07/28/2018 Assess perennial allergic rh initis with seasonal variation Medical Established Patient with Vahid Nagy [facility] 07/28/2018 Body mass index Medical Established Patient with Vahid Nagy [facility] 07/28/2018 Obesity due to excess calories Medical E stablished Patient with Vahid Nagy [facility] 07/28/2018 Assess tobacco abuse Medical Established Patient with Vahid Nagy [facility] 06/27/2018 Assessment of chronic lower back pain Me dical Established Patient with Vahid Nagy [facility] 06/27/2018 Obesity due to excess calories Medical E stablished Patient with Vahid Nagy [facility] 06/27/2018 Obesity due to excess calories Medical E stablished Patient with Vahid Nagy [facility] 05/30/2018 Findings Encounter Date Obesity due to excess calories Medical E stablished Patient with Vahid Nagy [facility] 11/16/2019 Z68.34 - Body mass index (BM I) 34.0-34.9, adult Medical Established Patient with Vahid Nagy [facility] 11/16/2019 Depressive disorder Established Patie nt with Nitza Mark [facility] 10/21/2019 F63.89 - Other impulse disor ders : Drug seeking behavior Medical Established Patient with Shawna Hele [facility] 10/21/2019 Obesity due to excess calories Medical E stablished Patient with Shawna Mg [facility] 10/21/2019 S76.211D - Strain of adducto r muscle, fascia and tendon of right thigh, subsequent encounter Medical Established Patient with Shawna Holliday [facility] 10/21/2019 Z68.35 - Body mass index (BM I) 35.0-35.9, adult Medical Established Patient with Shawna Holliday [employer] 10/21/2019 Depressive disorder Established Patie nt with Leah Short [facility] 09/24/2019 Generalized anxiety disorder Establis hed Patient with Leah Short [facility] 09/24/2019 M54.5 - Low back pain Medical Establishe d Patient with Shawna Holliday [employer] 09/24/2019 Obesity due to excess calories Medical E stablished Patient with Shawna Holliday [employer] 09/24/2019 Z68.25 - Body mass index (BM I) 25.0-25.9, adult Medical Established Patient with Shawna Holliday [employer] 09/24/2019 Depressive disorder Telebehavioral He alth with Leah Short [facility] 09/15/2019 Generalized anxiety disorder [facility] with Leah Short [facility] 09/15/2019 Depressive disorder Telebehavioral He alth with Leah Short [facility] 08/26/2019 Generalized anxiety disorder [facility] with Leah Short [facility] 08/26/2019 Z68.37 - Body mass index (BM I) 37.0-37.9 adult Medical Established Patient with Vahidchristiano Breweren [facility] 05/01/2019 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 Established Patient with Zach Grimaldo [facility] 04/14/2019 F41.1 - Generalized anxiety disorder Established Patient with Zachernestina Grimaldo [facility] 04/14/2019 Obesity due to excess calories Medical E stablished Patient with Vahid Angelita [facility] 04/14/2019 Z68.36 - Body mass index (BM I) 36.0-36.9 adult Medical Established Patient with Vahid Angelita [employer] 04/14/2019 Obesity due to excess calories Medical E stablished Patient with Vahid Angelita [employer] 03/20/2019 Z68.36 - Body mass index (BM I) 36.0-36.9 adult Medical Established Patient with Vahid Angelita [employer] 03/20/2019 Acute atopic conjunctivitis [Acute atopic conjunctivitis left eye] Medical Established Patient with Elena King [employer] 03/03/2019 Acute sinusitis Medical Established Patient with Elena King [employer] 03/03/2019 Body mass index [Body mass i ndex (BMI) 35.0-35.9 adult] Medical Established Patient with Elena King [facility] 03/03/2019 Generalized anxiety disorder BH Establis hed Patient with Zach Grimaldo [facility] 02/19/2019 Nicotine dependence BH Established Patie nt with Zach Grimaldo [facility] 02/19/2019 Persistent depressive disord er (dysthymia) BH Established Patient with Zach Grimaldo [facility] 02/19/2019 Body mass index Medical Established Patient with Vahid Breweren [facility] 02/19/2019 Generalized anxiety disorder Medical Est ablished Patient with Vahid Angelita [facility] 02/19/2019 Lumbago Medical Established Patient with Vahidchristiano Breweren [facility] 02/19/2019 Lumbar radiculopathy Medical Established Patient with Vahidchristiano Breweren [facility] 02/19/2019 Obesity due to excess calories Medical E stablished Patient with Vahidchristiano Breweren [facility] 02/19/2019 Body mass index Medical Established Patient with Vahid Nagy [facility] 01/22/2019 Obesity due to excess calories Medical E stablished Patient with Vahid Breweren [facility] 01/22/2019 Body mass index [Body mass i ndex (BMI) 35.0-35.9 adult] Medical Established Patient with Elena King [facility] 01/12/2019 Diabetes Risk Test Score was three score 01/12/2019 Medical Established Patient with Elena King [facility] 01/12/2019 Fagerstrom Score was 0 01/12/2019 Medica l Established Patient with Elena King [facility] 01/12/2019 Limb pain of shoulder region Medical Est ablished Patient with Elena King [facility] 01/12/2019 Obesity due to excess calories Medical E stablished Patient with Elena King [facility] 01/12/2019 PHQ-9: total score was 18 01/12/2019 Med ical Established Patient with Elena King [facility] 01/12/2019 Assess bronchitis Medical Established Patient with Vahid Breweren [facility] 12/11/2018 Irreducible ventral hernia Medical Estab lished Patient with Vahid Angelita [facility] 12/11/2018 Obesity due to excess calories Medical E stablished Patient with Vahidchristiano Breweren [facility] 12/11/2018 Z68.32 - Body mass index (BM I) 32.0-32.9 adult Medical Established Patient with Vahid Angelita [facility] 12/11/2018 Body mass index Medical Established Patient with Vahid Angelita [facility] 10/30/2018 Assess dermatitis Medical Established Patient with Vahid Angelita [facility] 09/30/2018 Assess urinary tract infection Medical E stablished Patient with Vahid Nagy [facility] 09/30/2018 Body mass index Medical Established Patient with Vahid Nagy [facility] 08/27/2018 Obesity due to excess calories Medical E stablished Patient with Vahid Nagy [facility] 08/27/2018 F17.210 - Nicotine dependenc e, cigarettes, uncomplicated Established Patient with Zach Grimaldo [facility] 07/28/2018 F34.1 - Dysthymic disorder Establishe d Patient with Zach Grimaldo [facility] 07/28/2018 F41.1 - Generalized anxiety disorder Established Patient with Zach Grimaldo [facility] 07/28/2018 Assess diabetes mellitus Medical Establi shed Patient with Vahid Nagy [facility] 07/28/2018 Assess generalized anxiety disorder [facility] Established Patient with Vahid Nagy [facility] 07/28/2018 Assess lumbago Medical Established Patient with Vahid Nagy [facility] 07/28/2018 Assess perennial allergic rh initis with seasonal variation Medical Established Patient with Vahid Nagy [facility] 07/28/2018 Body mass index Medical Established Patient with Vahid Nagy [facility] 07/28/2018 Obesity due to excess calories Medical E stablished Patient with Vahid Nagy [facility] 07/28/2018 Assess tobacco abuse Medical Established Patient with Vahid Nagy [facility] 06/27/2018 Assessment of chronic lower back pain Me dical Established Patient with Vahid Nagy [facility] 06/27/2018 Obesity due to excess calories Medical E stablished Patient with Vahid Nagy [facility] 06/27/2018 Obesity due to excess calories Medical E stablished Patient with Vahid Nagy [facility] 05/30/2018 Findings Encounter Date Depression Established Patie nt with eLah Arroyo [facility] 01/28/2020 Generalized anxiety disorder Establis hed Patient with Leah Short [facility] 01/28/2020 Obesity due to excess calories Medical E stablished Patient with Vahid Nagy [facility] 01/28/2020 Z68.33 - Body mass index [BM I] 33.0-33.9, adult Medical Established Patient with Vahid Nagy [facility] 01/28/2020 Obesity due to excess calories Medical E stablished Patient with Vahidchristiano Nagy [facility] 11/16/2019 Z68.34 - Body mass index (BM I) 34.0-34.9, adult Medical Established Patient with Vahid Nagy [facility] 11/16/2019 Depressive disorder Established Patie nt with Nitza Mark [facility] 10/21/2019 F63.89 - Other impulse disor ders : Drug seeking behavior Medical Established Patient with Shawna Holliday [employer] 10/21/2019 Obesity due to excess calories Medical E stablished Patient with Shawna Holliday [employer] 10/21/2019 S76.211D - Strain of adducto r muscle, fascia and tendon of right thigh, subsequent encounter Medical Established Patient with Shawna Holliday [employer] 10/21/2019 Z68.35 - Body mass index (BM I) 35.0-35.9, adult Medical Established Patient with Shawna Holliday [employer] 10/21/2019 Depressive disorder Established Patie nt with Leah Short [facility] 09/24/2019 Generalized anxiety disorder Establis hed Patient with Leah Short [facility] 09/24/2019 M54.5 - Low back pain Medical Establishe d Patient with Shawna Holliday [employer] 09/24/2019 Obesity due to excess calories Medical E stablished Patient with Shawna Holliday [employer] 09/24/2019 Z68.25 - Body mass index (BM I) 25.0-25.9, adult Medical Established Patient with Shawna Holliday [employer] 09/24/2019 Depressive disorder Telebehavioral He alth with Leah Short [facility] 09/15/2019 Generalized anxiety disorder [facility] with Leah Short [facility] 09/15/2019 Depressive disorder Telebehavioral He alth with Leah Short [facility] 08/26/2019 Generalized anxiety disorder [facility] with Leah Short [facility] 08/26/2019 Z68.37 - Body mass index (BM I) 37.0-37.9 adult Medical Established Patient with Vahidchristiano Breweren [facility] 05/01/2019 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 Established Patient with Zach Grimaldo [facility] 04/14/2019 F41.1 - Generalized anxiety disorder Established Patient with Zach Grimaldo [facility] 04/14/2019 Obesity due to excess calories Medical E stablished Patient with Vahid Angelita [employer] 04/14/2019 Z68.36 - Body mass index (BM I) 36.0-36.9 adult Medical Established Patient with Vahid Angelita [employer] 04/14/2019 Obesity due to excess calories Medical E stablished Patient with Vahid Angelita [facility] 03/20/2019 Z68.36 - Body mass index (BM I) 36.0-36.9 adult Medical Established Patient with Vahid Nagy [facility] 03/20/2019 Acute atopic conjunctivitis [Acute atopic conjunctivitis left eye] Medical Established Patient with Elena Diazer [facility] 03/03/2019 Acute sinusitis Medical Established Patient with Elena Diazer [facility] 03/03/2019 Body mass index [Body mass i ndex (BMI) 35.0-35.9 adult] Medical Established Patient with Elena King [facility] 03/03/2019 Generalized anxiety disorder Establis hed Patient with Zachernestina Grimaldo [facility] 02/19/2019 Nicotine dependence Established Patie nt with Zach Grimaldo [facility] 02/19/2019 Persistent depressive disord er (dysthymia) Established Patient with Zach Grimaldo [facility] 02/19/2019 Body mass index Medical Established Patient with Vahid Nagy [facility] 02/19/2019 Generalized anxiety disorder Medical Est ablished Patient with Vahid Angelita [facility] 02/19/2019 Lumbago Medical Established Patient with Vahid Angelita [facility] 02/19/2019 Lumbar radiculopathy Medical Established Patient with Vahid Breweren [facility] 02/19/2019 Obesity due to excess calories Medical E stablished Patient with Vahid Breweren [facility] 02/19/2019 Body mass index Medical Established Patient with Vahid Nagy [facility] 01/22/2019 Obesity due to excess calories Medical E stablished Patient with Vahid Nagy [facility] 01/22/2019 Body mass index [Body mass i ndex (BMI) 35.0-35.9 adult] Medical Established Patient with Elena Diazer [facility] 01/12/2019 Diabetes Risk Test Score was three score 01/12/2019 Medical Established Patient with Elena Diazer [facility] 01/12/2019 Fagerstrom Score was 0 01/12/2019 Medica l Established Patient with Elena Diazer [facility] 01/12/2019 Limb pain of shoulder region Medical Est ablished Patient with Elena Diazer [facility] 01/12/2019 Obesity due to excess calories Medical E stablished Patient with Elena King [facility] 01/12/2019 PHQ-9: total score was 18 01/12/2019 Med ical Established Patient with Elena King [facility] 01/12/2019 Assess bronchitis Medical Established Patient with Vahid Angelita [facility] 12/11/2018 Irreducible ventral hernia Medical Estab lished Patient [facility]id [facility] 12/11/2018 Obesity due to excess calories Medical E stablished Patient with Vahid [facility] 12/11/2018 Z68.32 - Body mass index (BM I) 32.0-32.9 adult Medical Established Patient with Vahid [facility] 12/11/2018 Body mass index Medical [facility] Assess dermatitis Medical [facility] Assess urinary tract infection Medical E [facility] Body mass index Medical Established Patient with Vahid [facility] 08/27/2018 Obesity due to excess calories Medical E stablished Patient with Vahid [facility] 08/27/2018 F17.210 - Nicotine dependenc e, cigarettes, uncomplicated Established Patient with Zach Grimaldo [facility] 07/28/2018 F34.1 - Dysthymic disorder Establishe d Patient with Zach Grimaldo [facility] 07/28/2018 F41.1 - Generalized anxiety disorder Established Patient with Zach Grimaldo [facility] 07/28/2018 Assess diabetes mellitus Medical Establi shed [facility] Assess generalized anxiety disorder [facility] иван [facility]2018 Assess lumbago Medical Established Patient with Vahid [facility] 07/28/2018 Assess perennial allergic rh initis with seasonal variation Medical Established Patient with Vahid [facility] 07/28/2018 Body mass index Medical Established Patient with Vahid [facility] 07/28/2018 Obesity due to excess calories Medical E stablished Patient with Vahid [facility] 07/28/2018 Assess tobacco abuse Medical Established [facility]2018 Assessment of chronic lower back pain Me dical Established [facility]2018 Obesity due to excess calories Medical E stablished Patient with Vahid [facility] 06/27/2018 Obesity due to excess calories Medical E stablished [facility] Diagnosis Osteoarthritis, unspecified osteoarthritis type, unspecified [...] Medical E stablished Patient with Vahid Angelita [facility] 04/12/2020 Z68.33 - Body mass index [BM I] 33.0-33.9, adult Medical Established Patient with Vahidchristiano Breweren [employer] 04/12/2020 Depression Established Patie nt with Leah Short [facility] 01/28/2020 Generalized anxiety disorder Establis hed Patient with Leah Short [facility] 01/28/2020 Obesity due to excess calories Medical E stablished Patient with Vahid Angelita [facility] 01/28/2020 Z68.33 - Body mass index [BM I] 33.0-33.9, adult Medical Established Patient with Vahid Angelita [facility] 01/28/2020 Obesity due to excess calories Medical E stablished Patient with Vahid Angelita [facility] 11/16/2019 Z68.34 - Body mass index (BM I) 34.0-34.9, adult Medical Established Patient with Vahidchristiano Nagy [facility] 11/16/2019 Depressive disorder Established Patie nt with Nitza Mark [facility] 10/21/2019 F63.89 - Other impulse disor ders : Drug seeking behavior Medical Established Patient with Shawna Holliday [facility] 10/21/2019 Obesity due to excess calories Medical E stablished Patient with Shawna Mg [facility] 10/21/2019 S76.211D - Strain of adducto r muscle, fascia and tendon of right thigh, subsequent encounter Medical Established Patient with Shawna Holliday [facility] 10/21/2019 Z68.35 - Body mass index (BM I) 35.0-35.9, adult Medical Established Patient with Shawna Hele [facility] 10/21/2019 Depressive disorder Established Patie nt with Leah Short [facility] 09/24/2019 Generalized anxiety disorder Establis hed Patient with Leah Short [facility] 09/24/2019 M54.5 - Low back pain Medical Establishe d Patient with Shawna Holliday [employer] 09/24/2019 Obesity due to excess calories Medical E stablished Patient with Shawna Holliday [employer] 09/24/2019 Z68.25 - Body mass index (BM I) 25.0-25.9, adult Medical Established Patient with Shawna Holliday [employer] 09/24/2019 Depressive disorder Telebehavioral He alth with Leah Short [facility] 09/15/2019 Generalized anxiety disorder [facility] with Leah Short [facility] 09/15/2019 Depressive disorder Telebehavioral He alth with Leah Short [facility] 08/26/2019 Generalized anxiety disorder [facility] with Leah Short [facility] 08/26/2019 Z68.37 - Body mass index (BM I) 37.0-37.9 adult Medical Established Patient with Vahid Angelita [facility] 05/01/2019 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 Established Patient with Zach Grimaldo [facility] 04/14/2019 F41.1 - Generalized anxiety disorder Established Patient with Zach Grimaldo [facility] 04/14/2019 Obesity due to excess calories Medical E stablished Patient with Vahid Angelita [facility] 04/14/2019 Z68.36 - Body mass index (BM I) 36.0-36.9 adult Medical Established Patient with Vahid Angelita [facility] 04/14/2019 Obesity due to excess calories Medical E stablished Patient with Vahid Angelita [facility] 03/20/2019 Z68.36 - Body mass index (BM I) 36.0-36.9 adult Medical Established Patient with Vahid Angelita [facility] 03/20/2019 Acute atopic conjunctivitis [Acute atopic conjunctivitis left eye] Medical Established Patient with Elena King [facility] 03/03/2019 Acute sinusitis Medical Established Patient with Elena King [facility] 03/03/2019 Body mass index [Body mass i ndex (BMI) 35.0-35.9 adult] Medical Established Patient with Elena King [employer] 03/03/2019 Generalized anxiety disorder Establis hed Patient with Zach Grimaldo [facility] 02/19/2019 Nicotine dependence Established Patie nt with Zachernestina Grimaldo [facility] 02/19/2019 Persistent depressive disord er (dysthymia) Established Patient with Zach Dillan [facility] 02/19/2019 Body mass index Medical Established Patient with Vahid Nagy [facility] 02/19/2019 Generalized anxiety disorder Medical Est ablished Patient with Vahid Nagy [facility] 02/19/2019 Lumbago Medical Established Patient with Vahid Nagy [facility] 02/19/2019 Lumbar radiculopathy Medical Established Patient with Vahid Nagy [facility] 02/19/2019 Obesity due to excess calories Medical E stablished Patient with Vahid Nagy [facility] 02/19/2019 Body mass index Medical Established Patient with Vahid Nagy [facility] 01/22/2019 Obesity due to excess calories Medical E stablished Patient with Vahid Nagy [facility] 01/22/2019 Body mass index [Body mass i ndex (BMI) 35.0-35.9 adult] Medical Established Patient with Elena Malik [facility] 01/12/2019 Diabetes Risk Test Score was three score 01/12/2019 Medical Established Patient with Elena Diazer [facility] 01/12/2019 Fagerstrom Score was 0 01/12/2019 Medica l Established Patient with Elena Diazer [facility] 01/12/2019 Limb pain of shoulder region Medical Est ablished Patient with Elena Diazer [facility] 01/12/2019 Obesity due to excess calories Medical E stablished Patient with Elena King [facility] 01/12/2019 PHQ-9: total score was 18 01/12/2019 Med ical Established Patient with Elena Malik [facility] 01/12/2019 Assess bronchitis Medical Established Patient with Vahid Breweren [facility] 12/11/2018 Irreducible ventral hernia Medical Estab lished Patient with Vahid Nagy [facility] 12/11/2018 Obesity due to excess calories Medical E stablished Patient with Vahid Nagy [facility] 12/11/2018 Z68.32 - Body mass index (BM I) 32.0-32.9 adult Medical Established Patient with Vahid Angelita [facility] 12/11/2018 Body mass index Medical Established Patient with Vahid Angelita [facility] 10/30/2018 Assess dermatitis Medical Established Patient with Vahid Angelita [facility] 09/30/2018 Assess urinary tract infection Medical E stablished Patient with Vahid Angelita [facility] 09/30/2018 Body mass index Medical Established Patient with Vahid Angelita [facility] 08/27/2018 Obesity due to excess calories Medical E stablished Patient with Vahid Nagy [facility] 08/27/2018 F17.210 - Nicotine dependenc e, cigarettes, uncomplicated Established Patient with Zach Grimaldo [facility] 07/28/2018 F34.1 - Dysthymic disorder Establishe d Patient with Zach Grimaldo [facility] 07/28/2018 F41.1 - Generalized anxiety disorder Established Patient with Zach Grimaldo [facility] 07/28/2018 Assess diabetes mellitus Medical Establi shed Patient with Vahid Nagy [facility] 07/28/2018 Assess generalized anxiety disorder [facility] Established Patient with Vahid Nagy [facility] 07/28/2018 Assess lumbago Medical Established Patient with Vahid Nagy [facility] 07/28/2018 Assess perennial allergic rh initis with seasonal variation Medical Established Patient with Vahid Nagy [facility] 07/28/2018 Body mass index Medical Established Patient with Vahid Nagy [facility] 07/28/2018 Obesity due to excess calories Medical E stablished Patient with Vahid Nagy [facility] 07/28/2018 Assess tobacco abuse Medical Established Patient with Vahid Nagy [facility] 06/27/2018 Assessment of chronic lower back pain Me dical Established Patient with Vahid Nagy [facility] 06/27/2018 Obesity due to excess calories Medical E stablished Patient with Vahid Nagy [facility] 06/27/2018 Obesity due to excess calories Medical E stablished Patient with Vahid Nagy [facility] 05/30/2018 Diagnosis Acute right-sided low back pain without sciatica- Primary Findings Encounter Date Body mass index Medical Established Patient with Vahid Nagy [facility] 10/30/2018 Assess dermatitis Medical Established Patient with Vahid Nagy [facility] 09/30/2018 Assess urinary tract infection Medical E stablished Patient with Vahid Nagy [facility] 09/30/2018 Body mass index Medical Established Patient with Vahid Nagy [facility] 08/27/2018 Obesity due to excess calories Medical E stablished Patient with Vahid Nagy [facility] 08/27/2018 F17.210 - Nicotine dependenc e, cigarettes, uncomplicated Established Patient with Zach Grimaldo [facility] 07/28/2018 F34.1 - Dysthymic disorder Establishe d Patient with Zach Grimaldo [facility] 07/28/2018 F41.1 - Generalized anxiety disorder Established Patient with Zach Grimaldo [facility] 07/28/2018 Assess diabetes mellitus Medical Establi shed Patient with Vahid Nagy [facility] 07/28/2018 Assess generalized anxiety disorder Medi иван Established Patient with Vahid Nagy [facility] 07/28/2018 Assess lumbago Medical Established Patient with Vahid Nagy [facility] 07/28/2018 Assess perennial allergic rh initis with seasonal variation Medical Established Patient with Vahid Nagy [facility] 07/28/2018 Body mass index Medical Established Patient with Vahid Nagy [facility] 07/28/2018 Obesity due to excess calories Medical E stablished Patient with Vahid Nagy [facility] 07/28/2018 Assess tobacco abuse Medical Established Patient with Vahid Nagy [facility] 06/27/2018 Assessment of chronic lower back pain Me dical Established Patient with Vahid Nagy [facility] 06/27/2018 Obesity due to excess calories Medical E stablished Patient with Vahid Nagy [facility] 06/27/2018 Obesity due to excess calories Medical E stablished Patient with Vahid Nagy [facility] 05/30/2018 Findings Encounter Date Generalized anxiety disorder Establis hed Patient with Zach Grimaldo [facility] 02/19/2019 Nicotine dependence Established Patie nt with Zach Grimaldo [facility] 02/19/2019 Persistent depressive disord er (dysthymia) Established Patient with Zach Grimaldo [facility] 02/19/2019 Body mass index Medical Established Patient with Vahid Nagy [facility] 02/19/2019 Generalized anxiety disorder Medical Est ablished Patient with Vahid Nagy [facility] 02/19/2019 Lumbago Medical Established Patient with Vahid Nagy [facility] 02/19/2019 Lumbar radiculopathy Medical Established Patient with Vahid Nagy [facility] 02/19/2019 Obesity due to excess calories Medical E stablished Patient with Vahid Nagy [facility] 02/19/2019 Body mass index Medical Established Patient with Vahid Nagy [facility] 01/22/2019 Obesity due to excess calories Medical E stablished Patient with Vahid Nagy [facility] 01/22/2019 Body mass index [Body mass i ndex (BMI) 35.0-35.9 adult] Medical Established Patient with Elena King [facility] 01/12/2019 Diabetes Risk Test Score was three score 01/12/2019 Medical Established Patient with Elena King [facility] 01/12/2019 Fagerstrom Score was 0 01/12/2019 Medica l Established Patient with Elena King [facility] 01/12/2019 Limb pain of shoulder region Medical Est ablished Patient with Elena King [facility] 01/12/2019 Obesity due to excess calories Medical E stablished Patient with Elena King [facility] 01/12/2019 PHQ-9: total score was 18 01/12/2019 Med ical Established Patient with Elena [facility] 01/12/2019 Assess bronchitis Medical [facility] Irreducible ventral hernia Medical Estab lished Patient [facility]id [facility] 12/11/2018 Obesity due to excess calories Medical E stablished Patient with Vahid [facility] 12/11/2018 Z68.32 - Body mass index (BM I) 32.0-32.9 adult Medical Established Patient with Vahid [facility] 12/11/2018 Body mass index Medical [facility] Assess dermatitis Medical Established Patient with Vahid [facility] 09/30/2018 Assess urinary tract infection Medical E stablished Patient with Vahid [facility] 09/30/2018 Body mass index Medical [facility] Obesity due to excess calories Medical E stablished Patient with Vahid [facility] 08/27/2018 F17.210 - Nicotine dependenc e, cigarettes, uncomplicated BH Established Patient with Zachernestina Grimaldo [facility] 07/28/2018 F34.1 - Dysthymic disorder Establishe d Patient with Zach Grimaldo [facility] 07/28/2018 F41.1 - Generalized anxiety disorder Established Patient with Zach Grimaldo [facility] 07/28/2018 Assess diabetes mellitus Medical Establi shed [facility] Assess generalized anxiety disorder [facility] Established Patient with Vahid [facility] 07/28/2018 Assess lumbago Medical Established Patient with Vahid [facility] 07/28/2018 Assess perennial allergic rh initis with seasonal variation Medical Established Patient with Vahid [facility] 07/28/2018 Body mass index Medical Established Patient with Vahid [facility] 07/28/2018 Obesity due to excess calories Medical E stablished Patient with Vahid [facility] 07/28/2018 Assess tobacco abuse Medical Established Patient with Vahid [facility] 06/27/2018 Assessment of chronic lower back pain Me dical Established [facility] Obesity due to excess calories Medical E stablished Patient with Vahid [facility] 06/27/2018 Obesity due to excess calories Medical E stablished [facility] Diagnosis Spinal stenosis of lumbar region, unspecified whether neurogenic claudication present DDD (degenerative disc disease), lumbar Degeneration of lumbar or lumbosacral intervertebral disc Diagnosis Atherosclerosis of artery of extremity with intermittent claudication (HCC) Incontinence Unspecified urinary incontinence Chronic obstructive pulmonary disease, unspecified COPD type ([facility]) Suspected COVID-19 virus infection AMS (altered mental status) Acute on chronic respiratory failure with hypercapnia ([facility]) CAD S/P percutaneous coronary angioplasty Coronary atherosclerosis of sitka coronary artery Tobacco abuse Tobacco use disorder Diabetes mellitus ([facility]) Type II or unspecified type diabetes mellitus without mention of complication, not stated as uncontrolled Hypertension Unspecified essential hypertension E. coli UTI Urinary tract infection, site not specified Diabetic polyneuropathy associated with type 2 diabetes mellitus ([facility]) COPD exacerbation ([facility]) Obstructive chronic bronchitis with exacerbation Findings Encounter Date Assess bronchitis Medical Established Patient with Vahid Nagy [facility] 12/11/2018 Irreducible ventral hernia Medical Estab lished Patient with Vahid Angelita [facility] 12/11/2018 Obesity due to excess calories Medical E stablished [facility]11[facility]2018 Z68.32 - Body mass index (BM I) 32.0-32.9 adult Medical Established [facility] Body mass index Medical Established [facility] 10/30/2018 Assess dermatitis Medical Established [facility] Assess urinary tract infection Medical E stablished Patient with Vahid Angelita [facility] 09/30/2018 Body mass index Medical Establ[facility]/27[facility]2018 Obesity due to excess calories Medical E stablished [facility] 08/27/2018 F17.210 - Nicotine dependenc e, cigarettes, uncomplicated Established Patient with Zachernestina Grimaldo [facility] 07/28/2018 F34.1 - Dysthymic disorder Establishe d Patient with Zachernestina Grimaldo [facility] 07/28/2018 F41.1 - Generalized anxiety disorder Established Patient with Zach Grimaldo [facility] 07/28/2018 Assess diabetes mellitus Medical Establi shed Patient with Vahid Angelita [facility] 07/28/2018 Assess generalized anxiety disorder [facility] иван Established Patient with Vahid Angelita [facility] 07/28/2018 Assess lumbago Medical Established Patient with Vahid Angelita [facility] 07/28/2018 Assess perennial allergic rh initis with seasonal variation Medical Established Patient with Vahid Angelita [facility] 07/28/2018 Body mass index Medical Established Patient with Vahid Nagy [facility] 07/28/2018 Obesity due to excess calories Medical E stablished Patient with Vahid Nagy [facility] 07/28/2018 Assess tobacco abuse Medical Established Patient with Vahid Nagy [facility] 06/27/2018 Assessment of chronic lower back pain Me dical Established Patient with Vahid Nagy [facility] 06/27/2018 Obesity due to excess calories Medical E stablished Patient with Vahid Nagy [facility] 06/27/2018 Obesity due to excess calories Medical E stablished Patient with Vahid Nagy [facility] 05/30/2018 Instructions Instructions not supported for [...] unit via cart with [facility] to [facility] Belongings and paperwork in hand. [...] No discharge needs at this time Contact: [phone] * Fadia Rojas RN - 03/18/2020 5:44 [...] DO - 03/19/2020 8:14 AM EST Eliseo Summer [employer] Associate Progress Note Date: 03/19/2020 Patient name: Jonatan [...] stenosis) Assessment: 1. Unstable angina transferred from [place]. 2. CAD s/p PCI-mid and distal RCA [...] by: Kenneth Canales MD Fellow, Cardiovascular Diseases [facility] Attending Final Finisher Forging Dies Addendum: I have reviewed and performed the [...] questions. Joseph Hope DO, FACC, KESHA JUDD [place] [employer] Associate [facility] * Rena Corona RN - 03/19/2020 1:52 AM EST Patient called out to narrative writer regarding home medications zanaflex and ibuprofen. Dowel Machine Operator reached out to office worker Dr. Kent, Dr. Kent called narrative writer and asked for narrative writer to place orders for home dosing [...] AM EST Received post cath procedure to [facility] room 7. Assessment obtained. Restrictions reviewed [...] request was completed. 21 Rxs sent to [facility] in [place]. * Leti Castellon RN - 07/25/2019 1:06 PM EDT Nurse narrative writer attempted to contact patients jesi Woods at listed phone number of [phone]. No answer, message left on voice mail to please call me at [phone]. * Wes Mcbride MD - 07/25/2019 6:24 AM EDT [facility] Department of Internal Medicine - Staff Internal Medicine Teaching Service Inpatient Daily Progress Note Date: 07/25/2019 Patient Name: Jonatan Olivarez Acct: [id number] Date of Admission: 07/18/2019 1:26 AM Date of : 1960 Primary Care Physician: Vahid Nagy APRN - DISTRIBUTED GENERATION PROJECT MANAGER Attending Physician: Chago Boyd DO Room: [address] [place], [place] [id number] Number of days in the hospital: 7 [...] Bonilla Catherine MD PGY-1, Internal Medicine Resident [facility] 07/25/2019, 6:24 AM Attending Physician Statement I [...] MD - 07/24/2019 4:34 PM EDT [place] [facility] Department of Internal Medicine - Staff Internal Medicine Teaching Service ICU PATIENT TRANSFER NOTE Date: 07/24/2019 Patient Name: Jonatan Olivarez Acct: [id number] Date of Admission: 07/18/2019 1:26 AM Date of : 1960 Primary Care Physician: Vahid M Angelita, DOCUMENT CLERK - DISTRIBUTED GENERATION PROJECT MANAGER Attending Physician: Chago Boyd DO History Obtained [...] nasal cannula at home oxygen presented to [place] ER by family with history of fall. [...] mouth daily Historical Provider, Incontinence Supply Disposable [facility] Incontinence pads 150 per month. Please order pad that is covered by insurance plan 09/21/14 Kathie Oakley MD TRUETRACK TEST strip use as directed TO TEST BLOOD SUGAR three times a day 08/26/14 Kathie Oakley MD Blood Pressure Monitoring [facility] To monitor blood pressure as needed. Please order device that is covered by insurance. 06/28/14 Kelton Zazueta, DOCUMENT CLERK - DISTRIBUTED GENERATION PROJECT MANAGER Current Inpatient: Scheduled Meds: [START ON 07/25/2019] [...] Garett Catherine MD PGY-1, Internal Medicine Resident [facility] 07/24/2019, 5:33 PM Attending Physician Statement I [...] Patient's name: Jonatan Olivarez Patient's account/billing number: [id number] Patient's Date of : 1960 Age: 58 [...] 2 diabetes mellitus who initially presented to [place] ED with altered mental status, hypoxia and hypercapnia and was intubated at [place]. CT PE negative for PE but concerning [...] Kristen Alexandre MD PGY-2, Internal medicine resident [facility], [place], [place] 07/24/2019 1:45 PM * Mely Virk, [...] 5. Fluid Accumulation-Mild fluid accumulation, Generalized 6. Registered Nursing Professor Strength-Not measured Nutrition Risk Level: High Nutrient Needs: Estimated Daily Total Kcal: 20-25 ~> 1438-0027 kcals/d Estimated Daily Protein (g): 1.2-2.0 gm/kg [...] wt loss x 7 mo per EMR [place] Body Wt: 105 lb (47.6 kg), % [place] Body 165% adm/ideal BMI Classification: BMI 30.0 - 34.9 Obese Class I(32.3) Nutrition Interventions: Continue current diet Continued Inpatient Monitoring, Education Not Indicated Nutrition Evaluation: Evaluation: Goals set Goals: po intake greater than 50% Monitoring: Meal Intake Contact Number: [phone] * Veronica Palacio, OT - 07/24/2019 10:12 AM EDT Occupational Therapy [address] Daily Treatment Note NAME: Jonatan Olivarez : 1960 Date of Service: 07/24/2019 Discharge Recommendations: Patient would benefit from continued therapy after discharge Copied from Infectious Disease: Patient presented to [facility] on 07[facility] after a fall and [...] for viral pna She was transferred to [facility] for further care Assessment Performance deficits [...] Patient's name: Jonatan Olivarez Patient's account/billing number: [id number] Patient's Date of : 1960 Age: 58 y.o. Date of Admission: 07/18/2019 1:26 AM Length of stay during current admission: 6 Primary Care Physician: Vahid Nagy APRN - DISTRIBUTED GENERATION PROJECT MANAGER ICU Attending Physician: Dr. Austen Alvarez Code Status: Full Code Reason for ICU admission: Acute Hypoxic respiratory failure Patient is a 58-year-old female with past medical history of chronic respiratory failure, COPD, hypertension, CAD, PVD, diastolic heart failure, type 2 diabetes mellitus who initially presented to [place] ED with altered mental status, hypoxia and hypercapnia and was intubated at [place]. CT PE negative for PE but concerning [...] Date 07/24/19 0000 - 07/24/19 2359 Shift [id number] 1563-7587 0566-3086 24 Hour Total INTAKE P.O.(mL/kg/hr) 960(1.4) 960 [...] Results Component Value Date PHART 7.321 07/17/2019 [id number] 64.4 07/17/2019 PO2ART 37.1 07/17/2019 [id number] 32.5 07/17/2019 [id number] 33 07/18/2019 [id number] 64.5 07/17/2019 FIO2 NOT REPORTED 07/18/2019 Lactic [...] No results for input(s): LABIRON, TIBC, FERRITIN, [id number], FOLATE, OCCULTBLD in the last 72 hours. Cultures during this admission: Blood cultures: [] None drawn [x] Negative [] Positive (Details: ) Urine Culture: [] None drawn [] Negative [x] Positive (Details: ESCHERICHIA COLI >[id number] CFU/ML) Sputum Culture: [] None drawn [] [...] indicated. 11. Disposition. OK to transfer to [facility] surg monitored bed. Kristen Alexandre MD PGY-2, Internal medicine resident [facility] [place], [place] 07/24/2019 9:55 AM Associated attestation - Martin Alvarez MD - 07/24/2019 2:58 PM EDT Attending Physician Statement I have discussed the case of Jonatan Olivarez, including pertinent history and exam findings with the resident/fellow/SALES RECORD CLERK/PA. I have seen and examined the patient and the sims elements of the encounter have been performed by me. I agree with the assessment, plan and orders as documented by the resident/fellow/SALES RECORD CLERK/PA With changes made to the note as [...] monitor On Lovenox Transfer the patient to [facility] monitored bed We will follow the patient from pulmonary standpoint Martin Alvarez 07/24/2019 2:58 PM * Enzo Lerma PTA - 07/24/2019 8:30 AM EDT Physical Therapy Facility/Department: [address] Daily Treatment Note NAME: Jonatan Olivarez [...] mouth daily Historical Provider, Incontinence Supply Disposable [facility] Incontinence pads 150 per month. Please order pad that is covered by insurance plan 09/21/14 Kathie Oakley MD TRUETRACK TEST strip use as directed TO TEST BLOOD SUGAR three times a day 08/26/14 Kathie Oakley MD Blood Pressure Monitoring [facility] To monitor blood pressure as needed. Please order device that is covered by insurance. 06/28/14 Kelton Zazueta, DOCUMENT CLERK - DISTRIBUTED GENERATION PROJECT MANAGER . Recent Surgical History: none Assessment Peak [...] 07/23/2019 10:59 AM EDT Physical Therapy Facility/Department: [address] Initial Assessment NAME: Jonatan Olivarez : 1960 Date of Service: 07/23/2019 Jonatan Olivarez is a 58 y.o. medical history of severe COPD, smoker and chronic respiratory failure, on 2 L of nasal cannula at home oxygen presented to [place] ER by family with history of fall. [...] Ambulation Assistance: Independent Transfer Assistance: Independent Active Inventory Management Specialist: Yes Mode of Transportation: Car Occupation: On [...] Ambulation Assistance: Independent Transfer Assistance: Independent Active Inventory Management Specialist: Yes Mode of Transportation: Car Occupation: On [...] 0-100% Score: 50.11 (07/23/19 1040) ADL Inpatient [facility] G-Code Modifier : CK (07/23/19 1040) Goals [...] Patient's name: Jonatan Henrywick Patient's account/billing number: [id number] Patient's Date of : 1960 Age: 58 y.o. Date of Admission: 07/18/2019 1:26 AM Length of stay during current admission: 5 Primary Care Physician: Vahid Nagy APRN - DISTRIBUTED GENERATION PROJECT MANAGER ICU Attending Physician: Dr. Austen Alvarez Code Status: Full Code Reason for ICU admission: Acute Hypoxic respiratory failure Patient is a 58-year-old female with past medical history of chronic respiratory failure, COPD, hypertension, CAD, PVD, diastolic heart failure, type 2 diabetes mellitus who initially presented to [place] ED with altered mental status, hypoxia and hypercapnia and was intubated at [place]. CT PE negative for PE but concerning [...] Date 07/23/19 0000 - 07/23/19 2359 Shift [id number] 8373-0806 6733-3616 24 Hour Total INTAKE I.V.(mL/kg) 288.9(3.4) 288.9(3.4) [...] Results Component Value Date PHART 7.321 07/17/2019 [id number] 64.4 07/17/2019 PO2ART 37.1 07/17/2019 PVZ0GAG 32.5 07/17/2019 [id number] 33 07/18/2019 [id number] 64.5 07/17/2019 FIO2 NOT REPORTED 07/18/2019 Lactic [...] No results for input(s): LABIRON, TIBC, FERRITIN, [id number], FOLATE, OCCULTBLD in the last 72 hours. [...] Discontinued ureña. 12. OK to transfer to [facility] monitored bed. Sera Moreira M.D. PGY 2 Department of Internal Medicine/ Critical care [facility]) 07/23/2019, 7:18 AM Associated attestation - Martin Alvarez MD - 07/23/2019 12:42 PM EDT Attending Physician Statement I have discussed the case of Jonatan Olivarez, including pertinent history and exam findings with the resident/fellow/SALES RECORD CLERK/PA. I have seen and examined the patient and the sims elements of the encounter have been performed by me. I agree with the assessment, plan and orders as documented by the resident/fellow/SALES RECORD CLERK/PA With changes made to the note as [...] on Lovenox Patient will be transferred to [facility] monitored bed We will follow the [...] Patient's name: Jonatan Henrywick Patient's account/billing number: [id number] Patient's Date of : 1960 Age: 58 y.o. Date of Admission: 07/18/2019 1:26 AM Length of stay during current admission: 4 Primary Care Physician: Vahid Nagy, HILDA - DISTRIBUTED GENERATION PROJECT MANAGER ICU Attending Physician: Dr. Austen Alvarez Code Status: Full Code Reason for ICU admission: Acute Hypoxic respiratory failure Patient is a 58-year-old female with past medical history of chronic respiratory failure, COPD, hypertension, CAD, PVD, diastolic heart failure, type 2 diabetes mellitus who initially presented to [place] ED with altered mental status, hypoxia and hypercapnia and was intubated at [place]. CT PE negative for PE but concerning [...] Date 07/22/19 0000 - 07/22/19 2359 Shift [id number] 8614-8559 8552-3584 24 Hour Total INTAKE I.V.(mL/kg) 470(5.4) 260(3) [...] Results Component Value Date PHART 7.321 07/17/2019 [id number] 64.4 07/17/2019 PO2ART 37.1 07/17/2019 GZU4ENR 32.5 07/17/2019 [id number] 33 07/18/2019 [id number] 64.5 07/17/2019 FIO2 NOT REPORTED 07/18/2019 Lactic [...] No results for input(s): LABIRON, TIBC, FERRITIN, CTRGEBBE49, FOLATE, OCCULTBLD in the last 72 hours. [...] 2 Department of Internal Medicine/ Critical care [facility]) 07/22/2019, 1:18 PM Associated attestation - Martin Alvarez MD - 07/22/2019 7:33 PM EDT Attending Physician Statement I have discussed the case of Jonatan Olivarez, including pertinent history and exam findings with the resident/fellow/SALES RECORD CLERK/PA. I have seen and examined the patient and the sims elements of the encounter have been performed by me. I agree with the assessment, plan and orders as documented by the resident/fellow/SALES RECORD CLERK/PA With changes made to the note as [...] AND/ASPEN Guidelines): 1. Energy Intake-Unable to assess SHEET HANGER; currently meeting greater than 75% of estimated nutrition needs with tube feeding. 2. Weight Loss-5% loss or greater, x 7 mo 3. Fat Loss-No significant subcutaneous fat loss, 4. Muscle Loss-No significant muscle mass loss, 5. Fluid Accumulation-Mild fluid accumulation, Generalized 6. Registered Nursing Professor Strength-Not measured Nutrition Risk Level: High Nutrition Needs: Estimated Daily Total Kcal: 7326-8211 kcals/d Estimated Daily Protein (g): 60-95 g/d [...] g pro/day Additional Calories: Propofol at 4.7 mL/ob=497 kcal/day Anthropometric Measures: Ht: 5' 1 (154.9 cm) Current Body Wt: 192 lb 0.3 oz (87.1 kg) Admission Body Wt: 173 lb (78.5 kg) Weight Change: 6% wt loss x 7 mo per EMR [place] Body Wt: 105 lb (47.6 kg), % [place] Body 165% adm/ideal BMI Classification: BMI 30.0 - 34.9 Obese Class I(32.3) Nutrition Interventions: Continue current Tube Feeding Continued Inpatient Monitoring, Education Not Indicated Nutrition Evaluation: Evaluation: Goal achieved Goals: Start diet vs nutrition support within 24-72 hrs Monitoring: TF Intake, TF Tolerance, Weight, Pertinent Labs Contact Number: [phone] * Donna James RCP - 07/22/2019 8:07 [...] Patient's name: Jonatan Biggsck Patient's account/billing number: [id number] Patient's Date of : 1960 Age: 58 y.o. Date of Admission: 07/18/2019 1:26 AM Length of stay during current admission: 3 Primary Care Physician: Vahid Nagy, DOCUMENT CLERK - DISTRIBUTED GENERATION PROJECT MANAGER ICU Attending Physician: Dr. Alvarez Code Status: Full Code Reason for ICU admission: Acute Hypoxic respiratory failure Patient is a 58-year-old female with past medical history of chronic respiratory failure, COPD, hypertension, CAD, PVD, diastolic heart failure, type 2 diabetes mellitus who initially presented to [facility] with altered mental status, hypoxia and hypercapnia and was intubated at [facility] [facility] CT PE negative for PE but concerning [...] Date 07/21/19 0000 - 07/21/19 2359 Shift [id number] 7576-1851 9090-7936 24 Hour Total INTAKE I.V.(mL/kg) 534(6.2) 142(1.6) [...] Results Component Value Date PHART 7.321 07/17/2019 [id number] 64.4 07/17/2019 PO2ART 37.1 07/17/2019 HPK6IHC 32.5 07/17/2019 [id number] 33 07/18/2019 Q4EYZNPW 64.5 07/17/2019 FIO2 NOT REPORTED 07/18/2019 Lactic [...] No results for input(s): LABIRON, TIBC, FERRITIN, RXBUJQAV13, FOLATE, OCCULTBLD in the last 72 hours. [...] M.D. Department of Internal Medicine/ Critical care [facility]) 07/21/2019, 11:12 AM Associated attestation - Martin Alvarez MD - 07/21/2019 2:36 PM EDT Attending Physician Statement I have discussed the case of Jonatan Olivarez, including pertinent history and exam findings with the resident/fellow/SALES RECORD CLERK/PA. I have seen and examined the patient and the sims elements of the encounter have been performed by me. I agree with the assessment, plan and orders as documented by the resident/fellow/SALES RECORD CLERK/PA With changes made to the note as [...] 5. Fluid Accumulation-Mild fluid accumulation, Generalized 6. Registered Nursing Professor Strength-Not measured Nutrition Risk Level: High Nutrition Needs: Estimated Daily Total Kcal: 2514-8630 kcals/d Estimated Daily Protein (g): 60-100 g/d [...] wt loss x 7 mo per EMR [place] Body Wt: 105 lb (47.6 kg), % [place] Body 165% adm/ideal BMI Classification: BMI 30.0 [...] Tolerance, I&O, Weight, Pertinent Labs Contact Number: [phone] * Nasima Alvarez MD - 07/20/2019 9:53 AM EDT Critical Care Team - Daily Progress Note Date and time: 07/20/2019 9:53 AM Patient's name: Jonatan Biggsck Patient's account/billing number: [id number] Patient's Date of : 1960 Age: 58 y.o. Date of Admission: 07/18/2019 1:26 AM Length of stay during current admission: 2 Primary Care Physician: Vahid Nagy APRN - DISTRIBUTED GENERATION PROJECT MANAGER ICU Attending Physician: Dr. Alvarez Code Status: Full Code Reason for ICU admission: Acute Hypoxic respiratory failure Patient is a 58-year-old female with past medical history of chronic respiratory failure, COPD, hypertension, CAD, PVD, diastolic heart failure, type 2 diabetes mellitus who initially presented to [facility] with altered mental status, hypoxia and hypercapnia and was intubated at [facility] [facility] CT PE negative for PE but concerning [...] Date 07/20/19 0000 - 07/20/19 2359 Shift [id number] 7462-5842 7694-4011 24 Hour Total INTAKE I.V.(mL/kg) 1443(18.3) 1443(18.3) [...] Results Component Value Date PHART 7.321 07/17/2019 KDW7BLM 64.4 07/17/2019 PO2ART 37.1 07/17/2019 YKU0KXE 32.5 07/17/2019 JYW5QRA 33 07/18/2019 I5RMEPZL 64.5 07/17/2019 FIO2 NOT REPORTED 07/18/2019 Lactic [...] M.D. Department of Internal Medicine/ Critical care [facility]) 07/20/2019, 9:54 AM Associated attestation - Martin Alvarez MD - 07/20/2019 4:32 PM EDT Attending Physician Statement I have discussed the case of Jonatan Olivarez, including pertinent history and exam findings with the resident/fellow/SALES RECORD CLERK/PA. I have seen and examined the patient and the sims elements of the encounter have been performed by me. I agree with the assessment, plan and orders as documented by the resident/fellow/SALES RECORD CLERK/PA With changes made to the note as [...] 5:03 PM EDT [facility] - Initial Consult Note COVID 19 [...] showed concern for viral pneumonia. Transferred to [facility] and developed respiratory failure requiring intubation COVID testing negative ID will sign off Infection Control Recommendations [place] Precautions Antimicrobial Stewardship Recommendations Discontinuation of therapy [...] Dr. Baeza INITIAL HISTORY: Patient presented to [facility] ER on 07-16 after a fall and [...] for viral pna She was transferred to [facility] for further care. Initially on arrival to [facility] pt was AA however she became [...] NL LV COPD (chronic obstructive pulmonary disease) ([facility]) Depression Diabetes mellitus ([facility]) Edema chevy legs feet H/O [...] History: Procedure Laterality Date AORTA SURGERY 05/2016 [facility], [place] CARDIAC CATHETERIZATION heart stent x3 CARDIAC CATHETERIZATION Left 02/25/2018 Right Ulnar/[facility]/ CARDIAC SURGERY CHOLECYSTECTOMY FEMORAL BYPASS [...] file Gets together: Not on file Attends rastafari service: Not on file Active member of [...] infectious and noninfectious processes. PneInd Medical Decision Ljajdk-Psjimgex-Drjpq: Medical Decision Making-Other: Note: Labs, medications, radiologic studies were reviewed with personal review of films Moderate Large amounts of data were reviewed Discussed with nursing Staff, data processing systems project planner Infection Control and Prevention measures reviewed [...] Patient's name: Jonatan Olivarez Patient's account/billing number: [id number] Patient's Date of : 1960 Age: 58 y.o. Date of Admission: 07/18/2019 1:26 AM Length of stay during current admission: 1 Primary Care Physician: Vahid Nagy APRN - DISTRIBUTED GENERATION PROJECT MANAGER ICU Attending Physician: Dr. Alvarez Code Status: [...] List Diagnosis Date Noted Angina, class III ([facility]) 02/25/2018 Priority: High Diabetic ulcer of toe of left foot associated with type 2 diabetes mellitus, with fat layer exposed([facility]) 01/24/2017 Priority: High Class: Chronic CAD S/P percutaneous coronary angioplasty 08/30/2013 Priority: High Diabetic polyneuropathy associated with type 2 diabetes mellitus ([facility]) 01/24/2017 Priority: Medium Class: Chronic Ventral hernia 08/30/2013 Priority: Medium AMS (altered mental status) 07/18/2019 Acute on chronic respiratory failure with hypercapnia ([facility]) 07/18/2019 COVID-19 07/17/2019 Acute on chronic respiratory failure with hypoxemia ([facility]) 04/23/2019 Pneumonia due to infectious organism 04/23/2019 COPD, severity to be determined ([facility]) Diabetes mellitus ([facility]) Hypertension Community acquired bacterial pneumonia 04/21/2019 COPD exacerbation ([facility]) 06/06/2018 COPD with exacerbation ([facility]) 06/05/2018 Acute respiratory failure with hypoxia and hypercapnia ([facility]) 06/05/2018 Hx of blood clots CAD (coronary artery disease) Tobacco abuse counseling 05/27/2014 Tobacco abuse 05/27/2014 Atherosclerosis of artery of extremity with intermittent claudication ([facility]) 05/27/2014 Dizziness 05/27/2014 Intolerance of drug 05/27/2014 Atherosclerosis of both carotid arteries 05/27/2014 Hypothyroidism 05/27/2014 Abnormal nuclear stress test 01/22/2013 Smoking greater than 40 pack years 01/22/2013 Claudication in peripheral vascular disease ([facility]) 11/06/2012 Stable angina ([facility]) 11/06/2012 Additional assessment: COVID 19 Suspect Respiratory failure ES COPD DM II CAD PAD/PVD Neuropathy Macrolide and Cephalosporin allergy PLAN: WEAN PER PROTOCOL: [] No [] Yes [] N/A DISCONTINUE ANY LABS: [x] No [] Yes ICU PROPHYLAXIS: Stress ulcer: [] PPI Agent [x] T2Rtzpt [] Sucralfate [] Other: VTE: [] Enoxaparin [...] Lovenox 40 mg daily Austin Hogan M.D. Pulverizer on COVID Service 07/19/2019, 10:03 AM Associated [...] floorfor unknown and was initially taken to [place] [facility]. She was hypoxemic on presentation, was initially placed on high flow and subsequently intubated. Her CT was reported to be concerning for viral pneumonia and. She was transferred to [facility] for further management. Her COVID-19 test [...] 45.4 POCPO2 127.5* 61.7* POCHCO3 36.1* 31.9* MKLI7DYS 99* 92* CBC: Recent Labs 07/17/19 1740 [...] this chart was generated using voice recognition Mytonomy dictation software. Although every effort was made to ensure the accuracy of this automated supervisor pipe finishing, some errors in supervisor pipe finishing may have occurred. * Rahul Donohue RN [...] 4:07 PM EDT Pt sister Fay from [facility] called for update, update given. * [...] Assessment Type and Reason for Visit: Initial, Consult([facility] Vent Protocol) Nutrition Recommendations: -Continue NPO status [...] 5. Fluid Accumulation-Mild fluid accumulation, Generalized 6. Registered Nursing Professor Strength-Not measured Nutrition Risk Level: High Nutrient Needs: Estimated Daily Total Kcal: 20-25 ~> 4567-5646 kcals/d Estimated Daily Protein (g): 1.2-2.0 gm/kg [...] wt loss x 7 mo per EMR [place] Body Wt: 105 lb (47.6 kg), % [place] Body 165% adm/ideal BMI Classification: BMI 30.0 - 34.9 Obese Class I(32.3) Nutrition Interventions: Continue NPO(Start diet vs nutrition support as able ) Continued Inpatient Monitoring, Education Not Indicated Nutrition Evaluation: Evaluation: Goals set Goals: Start diet vs nutrition support within 24-72 hrs Monitoring: Nutrition Progression, I&O, Weight, Pertinent Labs, Monitor Bowel Function Contact Number: [phone] * Stacy Rivas RCP - 07/18/2019 3:17 [...] COREY Wang 3:17 AM * Zach Witt [facility] - 07/18/2019 2:14 AM EDT Pharmacy Note [...] of artery of extremity with intermittent claudication ([facility]) Dizziness Intolerance of drug Atherosclerosis [...] Will continue to follow. Zach Witt [facility] 07/18/2019 2:13 AM documented in this encounter* [...] w color complete Josef Brooks MD [address] [place] [address] [facility] [address] [place] [address] StatusReasonSpecialtyDiagnoses / ProceduresReferred By ContactReferred To ContactNot Required - RecondoCardiology / Stress Lab Diagnoses ASHD (arteriosclerotic heart disease) S/P angioplasty with stent Mixed hyperlipidemia Essential hypertension Tobacco abuse counseling Abdominal aortic aneurysm (AAA) without rupture (HCC) PVD (peripheral vascular disease) (HCC) Bilateral carotid artery disease, unspecified type (HCC) Lightheadedness Dizziness Procedures Stress test (Lexiscan) Josef Brooks MD [address] [place], [place] [phone] [facility] [address] [place] [address] StatusReasonSpecialtyDiagnoses / ProceduresReferred By ContactReferred To ContactOpenRadiology Diagnoses Spinal stenosis of lumbar region, unspecified whether neurogenic claudication present DDD (degenerative disc disease), lumbar Procedures MRI LUMBAR SPINE WO CONTRAST Deion Fritz, DOCUMENT CLERK - [facility] [address] [place] [address] SpecialtyDiagnoses / ProceduresReferred By ContactReferred To ContactRadiology Diagnoses Right sided abdominal pain Procedures CT ABDOMEN PELVIS W IV CONTRAST Additional Contrast? Oral CT ABDOMEN PELVIS W IV CONTRAST Additional Contrast? Oral Osmar Rodriguez MD [address] [place] [address] [place] [address] Referral IDStatusReasonStart DateExpiration DateVisits RequestedVisits [id number] / Procedures Referred By ContactReferred To ContactRadiology Diagnoses Chronic right hip pain Procedures MRI HIP RIGHT WO CONTRAST Osmar Rodriguez MD [address] [place] [address] [place] [address] Referral IDStatusReasonStart DateExpiration DateVisits RequestedVisits [id number]/19/20229/[id number] / Procedures Referred By ContactReferred To ContactRadiology Diagnoses Recurrent abdominal hernia without obstruction or gangrene, unspecified hernia type Right lower quadrant abdominal mass Procedures CT ABDOMEN PELVIS W IV CONTRAST Additional Contrast? Oral Osmar Rodriguez MD [address] [facility] [address] [place] [address] Referral IDStatusReasonStart DateExpiration DateVisits RequestedVisits [id number] / Procedures Referred By ContactReferred To Contact Diagnoses Gastrointestinal hemorrhage, unspecified gastrointestinal hemorrhage type Gastric ulcer without hemorrhage or perforation, unspecified chronicity Procedures EGD Renuka Angeles MD [address] [facility] [place] [id number] Referral IDStatusReasonStart DateExpiration DateVisits RequestedVisits [id number] Discharge Instructions * Instructions* Chago Langston II, PA-C - 01/13/2019 Return for patient blood work in 2 days and then follow with your family practitioner * Attachments The following attachments cannot be sent through Care Everywhere. * Hyponatremia (Guyanese) * Lightheadedness or Faintness (Guyanese) documented in this encounter* Instructions* Mukesh Marley MD - 02/23/2019 You do not have a blood clot in your aorta please see your vascular doctor if you are having issues. documented in this encounter* Attachments The following attachments cannot be sent through Care Everywhere. * Contusion: Hand (Guyanese) documented in this encounter* Attachments The following attachments cannot be sent through Care Everywhere. * BPPV (Benign Paroxysmal Positional Vertigo) (Guyanese) documented in this encounter* Attachments The following attachments cannot be sent through Care Everywhere. * Back Pain (Guyanese) * Pneumonia (Guyanese) documented in this encounter* Instructions* Wesly Whitten [...] be sent through Care Everywhere. * Pneumonia (Guyanese) documented in this encounter* Attachments The following attachments cannot be sent through Care Everywhere. * Groin Strain (Guyanese) documented in this encounter* Instructions* Deion Loaiza [...] be sent through Care Everywhere. * Osteoarthritis (Guyanese) * UTI (Urinary Tract Infection): Female (Guyanese) documented in this encounter* Attachments The following attachments cannot be sent through Care Everywhere. * COPD Exacerbation Plan (Guyanese) * Heart Failure: General Info (Guyanese) documented in this encounter* Discharge Instr - [...] Emergency Contact: Serafin Olivarez Mobile Relation: Child Parquet Floor Layer'S Helper needed? No Past Surgical History: Past Surgical History: Procedure Laterality Date AORTA SURGERY 05/2016 [facility] CARDIAC CATHETERIZATION heart stent x3 CARDIAC CATHETERIZATION Left 02/25/2018 Right Ulnar/[facility]/ CARDIAC SURGERY CHOLECYSTECTOMY FEMORAL BYPASS HYSTERECTOMY VASCULAR SURGERY blood clot removed after hysto Immunization History: Immunization History Administered Date(s) Administered Influenza Virus Vaccine 12/30/2013 Influenza, Quadv, 6 mo and older, IM, PF (Flulaval, Fluarix) 06/07/2018 Pneumococcal Conjugate 13-valent ([id number]) 06/07/2018 Pneumococcal Polysaccharide (Jftacetkl76) 04/26/2019 Tdap (Boostrix, Adacel) 01/07/2017 Active Problems: Patient Active Problem List Diagnosis Code Claudication in peripheral vascular disease ([facility]) I73.9 Stable angina ([facility]) I20.8 Abnormal nuclear stress test R94.39 Smoking greater than 40 pack years F17.210 CAD S/P percutaneous coronary angioplasty I25.10, Z98.61 Ventral hernia K43.9 Tobacco abuse counseling Z71.6 Tobacco abuse Z72.0 Atherosclerosis of artery of extremity with intermittent claudication ([facility]) I70.219 Dizziness R42 Intolerance of drug Z78.9 Atherosclerosis of both carotid arteries I65.23 Hypothyroidism E03.9 Diabetic ulcer of toe of left foot associated with type 2 diabetes mellitus, with fat layer exposed([facility]) E11.621, L97.522 Diabetic polyneuropathy associated with type 2 diabetes mellitus ([facility]) E11.42 Angina, class III ([facility]) I20.9 COPD with exacerbation ([facility]) J44.1 Hx of blood clots Z86.718 CAD (coronary artery disease) I25.10 Acute respiratory failure with hypoxia and hypercapnia ([facility]) J96.01, J96.02 COPD exacerbation ([facility]) J44.1 Community acquired bacterial pneumonia J15.9 COPD (chronic obstructive pulmonary disease) ([facility]) J44.9 Diabetes mellitus ([facility]) E11.9 Hypertension I10 Acute on chronic respiratory failure with hypoxemia ([facility]) J96.21 Pneumonia due to infectious organism J18.9 AMS (altered mental status) R41.82 Acute on chronic respiratory failure with hypercapnia ([facility]) J96.22 E. coli UTI N39.0, B96.20 Unstable angina ([facility]) I20.0 Acute coronary syndrome ([facility]) I24.9 S/P cardiac cath Z98.890 [...] Test Resulted MRSA 07/06/13 07/06/13 Oliva Tristan, DOCUMENT CLERK - DISTRIBUTED GENERATION PROJECT MANAGER 03/18/20 Seth Prajapati RN 07/02/2013 wound--right groin [...] (76.3 kg) Mental Status: {IP PT MENTAL STATUS:39208} IV Access: {[facility] IV ACCESS:230779140} Nursing Mobility/ADLs: Walking {CHP DME ADLs:723477785} Transfer {CHP DME ADLs:346189901} Bathing {CHP DME ADLs:858366180} Dressing {CHP DME ADLs:118702162} Toileting {CHP DME ADLs:594033783} Feeding {CHP DME ADLs:125611664} Licensed Practical Vocational Nurse {CHP DME ADLs:446976304} Med Delivery { DUSTIN MED Delivery:782051004} Wound Care Documentation and Therapy: Wound 01/24/17 Toe (Comment which one) Left #2 left great toe (Active) Number of days: 1149 Elimination: Continence: Bowel: {YES / NO:} Bladder: {YES / NO:} Urinary Catheter: {Urinary Catheter:945966639} Colostomy/Ileostomy/Ileal Conduit: {YES / NO:} Date of Last BM: No intake or output data in the 24 hours ending 03/19/20 1159 No intake/output data recorded. Safety Concerns: { DUSTIN Safety Concerns:943747116} Impairments/Disabilities: { DUSTIN Impairments/Disabilities:095706835} Nutrition Therapy: Current Nutrition Therapy: { DUSTIN Diet List:882481916} Routes of Feeding: {[facility] DME Other Feedings:623263074} Liquids: {[facility] liquid thickness:02340} Daily Fluid Restriction: {CHP DME Yes amt example:797293910} Last Modified Barium Swallow with Video (Video Swallowing Test): {Done Not Done Date:} Treatments at the Time of Hospital Discharge: Respiratory Treatments: Oxygen Therapy: {Therapy; copd oxygen:21784} Ventilator: { CC Vent List:650087619} Rehab Therapies: {THERAPEUTIC INTERVENTION:7213502848} Weight Bearing Status/Restrictions: {[facility] Weight Bearin} Other Medical Equipment (for information only, NOT a DME order): {EQUIPMENT:705076973} Other Treatments: Patient's personal belongings (please select all that are sent with patient): {[facility] DME Belongings:349215626} RN SIGNATURE: {Esignature:558194773} CASE MANAGEMENT/SOCIAL WORK SECTION Inpatient Status Date: Readmission Risk Assessment Score: Readmission Risk Risk of Unplanned Readmission: 18 Discharging to Facility/ Agency Name: Address: Phone: Fax: Dialysis Facility (if applicable) Name: Address: Dialysis Schedule: Phone: Fax: Road Equipment Operator/Ben Day Artist signature: {Esignature:545274414} PHYSICIAN SECTION Prognosis: {Prognosis:0916363783} Condition at Discharge: {MH Patient Condition:392313728} Rehab Potential (if transferring to Rehab): {Prognosis:4184672413} Recommended Labs or Other Treatments After Discharge: Physician Certification: I certify the above information and transfer of Jonatan Olivarez is necessary for the continuing treatment of the diagnosis listed and that she requires {Admit to Appropriate Level of Care:79297} for {GREATER/LESS:583604035} 30 days. Update Admission H&P: {CHP DME Changes in HandP:291824196} PHYSICIAN SIGNATURE: {Esignature:382886241} * Additional Instructions* Kenneth Canales MD - 03/19/2020 Follow up in the Cardiology office in 2 weeks. Call to make an appointment. Following are numbers for [facility] ([facility]) [place] [facility] [place] [facility] [place] [facility] [place] [facility] [place] [facility] Follow up with your PCP in 1-2 weeks. Do not miss any doses of Aspirin and Plavix. documented in this encounter* Instructions* Fredy Billingsley APRN - [place] - 03/21/2020 Return to the emergency department for worsening symptoms. * Attachments The following attachments cannot be sent through Care Everywhere. * Hip Pain (Guyanese) documented in this encounter* Instructions* Marita Munoz [...] Where can you learn more? Go to [email or web address] and sign in to your [employer] account. Enter V314 in the Search Health Information box to learn more about Learning About COPD. If you do not have an account, please click on the Sign Up Now link. Current as of: September 07, 2018Content Version: 12.4 3347-3215 [employer] Pages. Care instructions adapted under license by [employer]. If you have questions about a medical condition or this instruction, always ask your healthcare professional. [employer] disclaims any warranty or liability for your use of this information. * Attachments The following attachments cannot be sent through Care Everywhere. * lisinopril (Guyanese) * metoprolol (oral/injection) (Guyanese) * COPD (Guyanese) documented in this encounter* Instructions* Corrine Jensen [...] taking more than one drug. This includes erhf-ywo-hxufkhh medicine and herb or dietary supplements. ? [...] this encounter Hospital Course * Oliva Tristan, DOCUMENT CLERK - DISTRIBUTED GENERATION PROJECT MANAGER - 03/18/2020 9:30 AM EST Discharge Summary [...] therefore she was taken directly to the Cost Accounting Manager yesterday with Dr. Stephens. She was found to have severe single vessel CAD inthe RCA. She was admitted yesterday and will be transferred to [facility] this morning for Heart Cath and Stent [...] Problem List Diagnosis Date Noted Unstable angina ([facility]) 03/17/2020 Priority: High Angina, class III ([facility]) 02/25/2018 Priority: High Diabetic ulcer of toe of left foot associated with type 2 diabetes mellitus, with fat layer exposed([facility]) 01/24/2017 Priority: High Class: Chronic CAD S/P percutaneous coronary angioplasty 08/30/2013 Priority: High Diabetic polyneuropathy associated with type 2 diabetes mellitus ([facility]) 01/24/2017 Priority: Medium Class: Chronic Tobacco abuse 05/27/2014 Priority: Medium Ventral hernia 08/30/2013 Priority: Medium Acute coronary syndrome ([facility]) 03/17/2020 E. coli UTI 07/20/2019 AMS (altered mental status) 07/18/2019 Acute on chronic respiratory failure with hypercapnia ([facility]) 07/18/2019 Acute on chronic respiratory failure with hypoxemia ([facility]) 04/23/2019 Pneumonia due to infectious organism 04/23/2019 COPD (chronic obstructive pulmonary disease) ([facility]) Diabetes mellitus ([facility]) Hypertension Community acquired bacterial pneumonia 04/21/2019 COPD exacerbation ([facility]) 06/06/2018 COPD with exacerbation ([facility]) 06/05/2018 Acute respiratory failure with hypoxia and hypercapnia ([facility]) 06/05/2018 Hx of blood clots CAD (coronary artery disease) Tobacco abuse counseling 05/27/2014 Atherosclerosis of artery of extremity with intermittent claudication (HCC) 05/27/2014 Dizziness 05/27/2014 Intolerance of drug 05/27/2014 Atherosclerosis of both carotid arteries 05/27/2014 Hypothyroidism 05/27/2014 Abnormal nuclear stress test 01/22/2013 Smoking greater than 40 pack years 01/22/2013 Claudication in peripheral vascular disease (HCC) 11/06/2012 Stable angina ([facility]) 11/06/2012 Discharge Medications: Sher Jonatan Phillips Home Medication Instructions LISBETH:[id number] Printed on:03/18/20 2775 Medication Information albuterol (PROVENTIL) (2.5 MG/3ML) 0.083% [...] three times a day Blood Pressure Monitoring [facility] To monitor blood pressure as needed. Please order device that is covered by insurance. clopidogrel (PLAVIX) 75 MG tablet Take 1 tablet by mouth daily glycopyrrolate-formoterol (BEVESPI AEROSPHERE) 9-4.8 MCG/ACT AERO Inhale 2 puffs into the lungs 2 times daily ibuprofen (ADVIL;MOTRIN) 800 MG tablet Take 1 tablet by mouth every 8 hours as needed for Pain Incontinence Supply Disposable [facility] Incontinence pads 150 per [...] none needed Other: None Disposition: Transfer to [facility] for tertiary care Follow up: Patient will be followed by HILDA Land CNP in 1-2 weeks CORE MEASURES on Discharge (if applicable) FAUSTO/ARB in CHF: Yes Statin in GA: NA ASA in GA: NA Statin in CVA: NA Antiplatelet in CVA: NA Total time spent on discharge services: 35 minutes Including the following activities: Evaluation and Management of patient Discussion with patient and/or surrogate about current care plan Coordination with Case Management and/or Ben Day Artist Coordination of care with Consultants (if applicable) Coordination of care with Receiving Facility Physician (if applicable) Completion of DME forms (if applicable) Preparation of Discharge Summary Preparation of Medication Reconciliation Preparation of Discharge Prescriptions Signed: Oliva Tristan APRN, SALES RECORD CLERK-C 03/18/2020, 9:32 AM Associated attestation - Caren Mera MD - 03/18/2020 9:51 AM EST I personally evaluated and examined the patient face to face in conjunction with the APC and agree with the management and disposition of the patient. My sims findings are: Patient ID: Jonatan Olivarez [id number] Admission date: 03/17/2020 Discharge date: 03/18/2020 Admitting Physician: Caren Mera MD Primary Care Physician: HILDA Land CNP Primary Discharge Diagnoses: Patient Active Problem List Diagnosis Date Noted Unstable angina (HCC) 03/17/2020 Priority: High Angina, class III ([facility]) 02/25/2018 Priority: High Diabetic ulcer of toe of left foot associated with type 2 diabetes mellitus, with fat layer exposed([facility]) 01/24/2017 Priority: High Class: Chronic [...] organism 04/23/2019 COPD (chronic obstructive pulmonary disease) ([facility]) Diabetes mellitus ([facility]) Hypertension Community acquired bacterial pneumonia 04/21/2019 COPD exacerbation ([facility]) 06/06/2018 COPD with exacerbation ([facility]) 06/05/2018 Acute respiratory failure with hypoxia and hypercapnia ([facility]) 06/05/2018 Hx of blood clots CAD (coronary artery disease) Tobacco abuse counseling 05/27/2014 Tobacco abuse 05/27/2014 Atherosclerosis of artery of extremity with intermittent claudication ([facility]) 05/27/2014 Dizziness 05/27/2014 Intolerance of drug 05/27/2014 Atherosclerosis of both carotid arteries 05/27/2014 Hypothyroidism 05/27/2014 Abnormal nuclear stress test 01/22/2013 Smoking greater than 40 pack years 01/22/2013 Claudication in peripheral vascular disease ([facility]) 11/06/2012 Stable angina ([facility]) 11/06/2012 Additional Diagnoses: Diagnosis Date Asthma Back problem Bulging discs (2 or 3), 1 cracked & 1 blackened discs CAD (coronary artery disease) stents x 3; BMS to LAD 12/2010;SPARKLE to RCA 01/2011, NL LV COPD (chronic obstructive pulmonary disease) ([facility]) Depression Diabetes mellitus ([facility]) Edema chevy legs feet H/O cardiac catheterization 01/01/2011 H/O echocardiogram 09/03/2019 EF 65% evidence of mild grade I diastolic dysfunction seen Hernia of abdominal wall 2012 History of cardiac cath 03/17/2020 [facility] Michael/Dr. Stephens/Left Radial History of cardiovascular [...] ms QTc Calculation (Bazett) 396 ms P Aurora 55 degrees R Aurora 55 degrees T Aurora 60 degrees Troponin Collection Time: 03/17/20 8:30 [...] Discharge Medications: Jonatan Olivarez Home Medication Instructions LISBETH:[id number] Printed on:03/18/20 0943 Medication Information albuterol (PROVENTIL) (2.5 MG/3ML) 0.083% [...] three times a day Blood Pressure Monitoring [facility] To monitor blood pressure as needed. Please order device that is covered by insurance. clopidogrel (PLAVIX) 75 MG tablet Take 1 tablet by mouth daily glycopyrrolate-formoterol (BEVESPI AEROSPHERE) 9-4.8 MCG/ACT AERO Inhale 2 puffs into the lungs 2 times daily ibuprofen (ADVIL;MOTRIN) 800 MG tablet Take 1 tablet by mouth every 8 hours as needed for Pain Incontinence Supply Disposable [facility] Incontinence pads 150 per [...] DO - 03/19/2020 11:19 AM EST Eliseo Summer Law Associate Discharge Note Name: Jonatan Olivarez Date of : 1960 Social Security Number: [id number] Date of Admission: 03/18/2020 Date of Discharge: 03/19/2020 Admitting physician: Ema Miller MD Discharge Attending: Kenneth Canales MD Primary Care Physician: Vahid Nagy, DOCUMENT CLERK - DISTRIBUTED GENERATION PROJECT MANAGER Consultants: Cardiology Discharge to Home Condition at discharge: Stable HOSPITAL ADMISSION PROBLEM LIST: Patient Active Problem List Diagnosis Claudication in peripheral vascular disease (HCC) Stable angina ([facility]) Abnormal nuclear stress test Smoking greater than 40 pack years CAD S/P percutaneous coronary angioplasty Ventral hernia Tobacco abuse counseling Tobacco abuse Atherosclerosis of artery of extremity with intermittent claudication ([facility]) Dizziness Intolerance of drug Atherosclerosis of both carotid arteries Hypothyroidism Diabetic ulcer of toe of left foot associated with type 2 diabetes mellitus, with fat layer exposed([facility]) Diabetic polyneuropathy associated with type 2 diabetes mellitus ([facility]) Angina, class III ([facility]) COPD with exacerbation ([facility]) Hx of blood clots CAD (coronary artery disease) Acute respiratory failure with hypoxia and hypercapnia ([facility]) COPD exacerbation ([facility]) Community acquired bacterial pneumonia COPD (chronic obstructive pulmonary disease) ([facility]) Diabetes mellitus ([facility]) Hypertension Acute on chronic respiratory failure with hypoxemia ([facility]) Pneumonia due to infectious organism AMS (altered mental status) Acute on chronic respiratory failure with hypercapnia ([facility]) E. coli UTI Unstable angina ([facility]) Acute coronary syndrome ([facility]) S/P cardiac cath S/P angioplasty [...] cardiology 4 weeks Follow up with other customer service consultant physicians at their directions. Discharge Medications: Jonatan Olivarez Home Medication Instructions LISBETH:[id number] Printed on:03/19/20 1782 Medication Information albuterol (PROVENTIL) (2.5 MG/3ML) 0.083% [...] three times a day Blood Pressure Monitoring [facility] To monitor blood pressure as needed. Please order device that is covered by insurance. clopidogrel (PLAVIX) 75 MG tablet Take 1 tablet by mouth daily glycopyrrolate-formoterol (BEVESPI AEROSPHERE) 9-4.8 MCG/ACT AERO Inhale 2 puffs into the lungs 2 times daily ibuprofen (ADVIL;MOTRIN) 800 MG tablet Take 1 tablet by mouth every 8 hours as needed for Pain Incontinence Supply Disposable [facility] Incontinence pads 150 per [...] discharge instructions reviewed with patient and nursing. [place] Summer Law Associate Attending Final Finisher Forging Dies Addendum: I have reviewed and performed the [...] questions. Joseph Hope DO, FACAlan, KESHA JUDD [employer] Summer Law Associate [facility] documented in this encounter Chief Complaint and [...] DATE CREATED AUTHOR AUTHOR'S ORGANIZ ATION 03/05/2019 [facility] DATE CREATED AUTHOR AUTHOR'S ORGANIZ ATION 12/29/2019 [facility] DATE CREATED AUTHOR AUTHOR'S ORGANIZ ATION 10/07/2021 [facility]ary [facility] DATE CREATED AUTHOR AUTHOR'S ORGANIZ ATION 12/27/2021 [facility] DATE CREATED AUTHOR AUTHOR'S ORGANIZ ATION 06/09/2022 [facility] DATE CREATED AUTHOR AUTHOR'S ORGANIZ ATION 11/24/2023 [facility] DATE CREATED AUTHOR AUTHOR'S ORGANIZ ATION 02/02/2024 [facility] DATE CREATED AUTHOR AUTHOR'S ORGANIZ ATION 11/21/2024 [facility] DATE CREATED AUTHOR AUTHOR'S ORGANIZ ATION 01/08/2025 [facility] DATE CREATED AUTHOR AUTHOR'S ORGANIZ ATION 01/15/2025 [facility] Evaluations & Outcomes (unre cognized section [...] ed section and content) ReasonCommentsFallapprox 2 hrs SHEET HANGER d/t legs giving out -fell on left side onto pavement- denies head injury or LOCNeck PainArm PainleftBack PainlowerHeadache ReasonCommentsAbdominal PainPatient had lumbar mri today, [facility] contacted us to inform us that [...] doppler w color complete Josef Brooks MD [address] [place] [address] [place] [address] [facility] [address] [place] [address] StatusReasonSpecialtyDiagnoses / ProceduresReferred By ContactReferred To ContactNot Required - RecondoCardiology / Stress Lab Diagnoses ASHD (arteriosclerotic heart disease) S/P angioplasty with stent Mixed hyperlipidemia Essential hypertension Tobacco abuse counseling Abdominal aortic aneurysm (AAA) without rupture (HCC) PVD (peripheral vascular disease) (HCC) Bilateral carotid artery disease, unspecified type (HCC) Lightheadedness Dizziness Procedures Stress test (Lexiscan) Josef Brooks MD [address] [place] [address] [place] [address] [facility] [address] [place] [address] StatusReasonSpecialtyDiagnoses / ProceduresReferred By ContactReferred To ContactAuthorizedCardiology Diagnoses ASHD (arteriosclerotic heart disease) S/P angioplasty with stent Mixed hyperlipidemia Essential hypertension Tobacco abuse counseling Bilateral carotid artery disease, unspecified type (HCC) PVD (peripheral vascular disease) (HCC) Abdominal aortic aneurysm (AAA) without rupture (HCC) SOB (shortness of breath) Procedures Referral to Cardiac Cath RI CATH PLMT L HRT & ARTS W/NJX & ANGIO IMG S&I Josef Brooks MD [address] [place] [address] [place] [address] ReasonCommentsBack PainLumbar, chronic, worse since this AM. [...] HC L HEART W LV & CORONARY [facility] ReasonCommentsAbdominal PainRLQ pain, ongoing for 4 [...] S/P cardiac cath S/P angioplasty with stent geophysical laboratory supervisor Procedures DIAGNOSTIC CARDIAC WOOD ROUTER HAND PROCEDURE Ema Miller MD [address] [address] [facility] ReasonCommentsHip Painpt states onset 2 days ago, no known injury.Otherpt states she had one heart stent placed on Saturday at [facility]. Pt states I have been feeling funny ReasonCommentsHip Painfell 2 days ago on rt hip C/O pain in rt hip and rt posterior back. Denies LOCStatusReasonSpecialtyDiagnoses / Procedures Referred By ContactReferred To ContactClosedRadiology Diagnoses Spinal stenosis, lumbar region without neurogenic claudication Other intervertebral disc degeneration, lumbar region Spinal stenosis, lumbar region without neurogenic claudication Procedures HC MRI-SPINE LUMBAR WO CONTRAST Deion Fritz, DOCUMENT CLERK - DISTRIBUTED GENERATION PROJECT MANAGER [address] [place] [address] [facility] [address] [place] [address] StatusReasonSpecialtyDiagnoses / ProceduresReferred By ContactReferred To Contact Diagnoses COVID-19 COVID-19 acute resp failure with hypoxemia Chago Boyd DO [address] [facility] [address] [place] [address] [facility] StatusReasonSpecialtyDiagnoses / ProceduresReferred By ContactReferred To ContactAuthorizedCardiology / IP Unit Diagnoses Abnormal stress test CAD S/P percutaneous coronary angioplasty Essential hypertension Mixed hyperlipidemia Tobacco abuse counseling PVD (peripheral vascular disease) (HCC) Bilateral carotid artery disease, unspecified type (HCC) Procedures Referral to Cardiac Cath RI CATH PLMT L HRT & ARTS W/NJX & ANGIO IMG S&I Josef Brooks MD [address] [place] [address] [place] [address] [facility] [address] [place] [address] ReasonCommentsGroin Painpt states right sided, onset for a monthReasonComments FallOnset SHEET HANGER. Pt fell to floor in bedroom after [...] Additional Contrast? Oral Osmar Rodriguez MD [address] [facility] [address] [place] [address] Referral IDStatusReasonStart DateExpiration DateVisits RequestedVisits [id number] 2 days ago. C/o left shoulder bilateral knee painReasonCommentsCoughOnset 1 week ago, productive. Pt saw PCP 5 days ago and was ordered to have a chest Xray, but did not yet.StatusReasonSpecialtyDiagnoses / ProceduresReferred By ContactReferred To Contact Diagnoses Community acquired bacterial pneumonia Gordo De Santiago MD [address] [place] [address], [place] [address] [facility] SpecialtyDiagnoses / ProceduresReferred By ContactReferred To ContactRadiology Diagnoses Chronic right hip pain Procedures MRI HIP RIGHT WO CONTRAST Osmar Rodriguez MD [address] [place] [address] [address] [place] [address] Referral IDStatusReasonStart DateExpiration DateVisits RequestedVisits [id number] / Procedures Referred By ContactReferred To ContactRadiology Diagnoses Recurrent abdominal hernia without obstruction or gangrene, unspecified hernia type Right lower quadrant abdominal mass Procedures CT ABDOMEN PELVIS W IV CONTRAST Additional Contrast? Oral Osmar Rodriguez MD [address] [place] [address] [address] [place] [address] Referral IDStatusReasonStart DateExpiration DateVisits RequestedVisits [id number] MassComplains of left abd mass/painReasonCommentsFallPatient fell on [...] Augmentin. Pt administered 50 mcg of Fentanyl SHEET HANGER.SpecialtyDiagnoses / ProceduresReferred By ContactReferred To Contact Diagnoses Unable to care for self Osmar Rodriguez MD [address] [facility]. [address] [place] [address] Phone: tel: fax: [facility] [address] [address] [place] [address] Referral IDStatusReasonStbutler DateExpiration DateVisits RequestedVisits [id number] PainRight hip pain ongoing the past few [...] cystitis without hematuria Nat Reynolds MD [address] [place] [address] Phone: tel: fax: Referral IDStatusReasonEmbarrass DateExpiration DateVisits RequestedVisits [id number] Medical History (unrecognize d section and content) Description Patient gave verbal consent for [facility] 07/09/2019 History of hypertension 02/19/2019 A [...] mouth 2 times daily as needed for Cjbwwpkefxok68/19/2025 ferrous sulfate (IRON 325) 325 (65 Fe) [...] Administer over 1 Hours, ONCE, On 12/04/20 [id number], For 1 dose * 1700 (New Bag [...] - Provider: Erika Ramesh RN) Medication Order// ixzpbkla-mgbnbztphk-vqkuwxuqe (NEOSPORIN) 400-5-5000 ointment Starting on Jenn 01/12/21 at 1517, For 1 dose, Erika Ramesh: cabinet override * 1530 (Due) Medication Order// 0.9 % sodium chloride bolus (COMPLETED) 1,000 mL, IntraVENous, at 1,000 mL/hr, Administer over 1 Hours, ONCE, On Sat01/17/21 at 0100, For 1 dose * 0132 (New Bag - Provider: La Stevens, DAIR) * 0700 (Stopped - Provider: Bela Morelos, [...] sodium chloride 0.9 % 50 mL IVPB (Vcsi3Oul)(Linked Group 1) 3,375 mg, IntraVENous, at 12.5 mL/hr, Administer over 240 Minutes, EVERY 8 HOURS, First dose on Sat08/06/24 at 2200, For 7 days, Use 20mm (Blue) Xyni1Zfo Adapter Preparation instructions: Attach medication vial to one 20mm (Blue) Iamr3Mjp adapter. Rai fluid bag with adapter, mix, and administer per order. * 0315 (Stopped - Provider: Ly Constantino RN) * 0515 (New Bag - Provider: yL Constantino RN) * 0940 (Stopped - Provider: [...] or Central Line = 20 mL/lumen * 9623 (Given - Provider: Demetria Stout RN) zolpidem (AMBIEN) tablet 10 mg 10 mg, Oral, NIGHTLY PRN, Starting on Jenn 08/06/24 at 1449, Until Discontinued, Sleep Order Group 1: piperacillin-tazobactam (ZOSYN) 4,500 mg in sodium chloride 0.9 % 100 mL IVPB (Ipiq0Epi) (COMPLETED) 4,500 mg, IntraVENous, at 200 mL/hr, Administer over 30 Minutes, ONCE, On Jenn 08/06/24 at 1530, For 1dose, Use 20mm (Blue) Nslt1Wji Adapter Preparation instructions: Attach medication vial to one 20mm(Blue) Ybcy1Uaw adapter. Rai fluid bag with adapter, mix, and administer per order. Followed by piperacillin-tazobactam (ZOSYN) 3,375 mg in sodium chloride 0.9 % 50 mL IVPB (Foij0Mjw)Jump to med 3,375 mg, IntraVENous, at 12.5 mL/hr, Administer over 240 Minutes, EVERY 8 HOURS, First dose on Thu08/06/24 at 2200, For 7 days, Use 20mm (Blue) Eoyr9Raz Adapter Preparation instructions: Attach medication vial to one 20mm (Blue) Fggz9Fml adapter. Rai fluid bag with adapter, mix, [...] Claudio RN) * 0837 (Given - Provider: Erni Stevens RN) amoxicillin-clavulanate (AUGMENTIN) 875-125 MG per [...] Until Discontinued * 0807 (Given - Provider: yCndee Claudio RN) * 0842 (Given - Provider: [...] 4 mg, IntraVENous, ONCE, 1 dose, On Ejnn 11/19/24 at 1315, If oral and IV [...] * 2200 (Due - Provider: Artur Cordoba [facility]) methylPREDNISolone sod suc(PF) (Solu-MEDROL) injection 125 mg [...] ProviderActiveStart: January 20, 2024 Ariana Abrams , SWAMPER-BCOther ProviderActiveStart: January 20, 2024 Ziggy Barraza MDAttending Provider, Other ProviderActiveStart: January 20, 2024 Luis Fernando Strauss MDOther ProviderActiveStart: January 20, 2024 Asia Guzman LPNOt ProviderActiveStart: January 20, 2024 Americo Gomez MDOther ProviderActiveStart: January 20, 2024 Michelle Joyce SALES RECORD CLERK-COther ProviderActiveStart: January 20, 2024 Bjorn Ramsey MDOther ProviderActiveStart: January 20, 2024 Artur Guo MDOther ProviderActiveStart: January 20, 2024 Team Status: Active Member Role Status Dates Carlo Grimaldo DO Emergency Provider Active Sta rt: January 20, 2024 NON STAFFPrimary Care ProviderActiveStart: January 20, 2024 Matty cOampo ProviderActiveStart: January 20, 2024 Luis Fernando Strauss MDOther ProviderActiveStart: January 20, 2024 Ziggy Barraza MDOther ProviderActiveStart: January 20, 2024 Asia Guzman LPNOt ProviderActiveStart: January 20, 2024 Americo Gomez MDOther ProviderActiveStart: January 20, 2024 Michelle Joyce , ASIA-COther ProviderActiveStart: January 20, 2024 Jose D Nunez ProviderActiveStart: January 20, 2024 Artur Guo , [facility] Provider, Other ProviderActiveStart: January 20, 2024 Team MemberRelationshipSpecialtyStart DateEnd Date Osmar Rodriguez MD [address] [place] [address] [address] [place] [address] PCP - GeneralFamily Rjnlegpu36/30/21Team MemberRelationshipSpecialtyStart Date End Date Osmar Rodriguez MD [address] [place] [address] [address] [place] [address] PCP - GeneralFamily Akfrpuol84/30/21Team MemberRelationshipSpecialtyStart Date End Date Osmar Rodriguez MD [address] [place] [address] [address] [place] [address] PCP - GeneralFamily Fywsoxie34/30/21Team MemberRelationshipSpecialtyStart Date End Date Osmar Rodriguez MD [address] [place] [address] [address] [place] [address] PCP - GeneralFamily Xsjkzmcn75/30/21Team MemberRelationshipSpecialtyStart Date End Date Vahid Nagy, DISTRIBUTED GENERATION PROJECT MANAGER [address] [place] [address] PCP - GeneralCertified Nurse Vfhlxwpqmcir79/27/19Team MemberRelationship SpecialtyStart DateEnd Date Osmar Rodriguez MD [address] [place] [address] [address] [place] [address] PCP - GeneralFamily Jgenariv69/30/21Team MemberRelationshipSpecialtyStart Date End Date Osmar Rodriguez MD [address] [place] [address] [address] [place] [address] PCP - GeneralFamily Luoitjrp53/30/21Team MemberRelationshipSpecialtyStart Date End Date Osmar Rodriguez MD [address] [place] [address] [address] PCP - GeneralFamily Bfkvurvp31/30/21Team MemberRelationshipSpecialtyStart Date End Date Vahid Nagy, DISTRIBUTED GENERATION PROJECT MANAGER [address] [place] [address] PCP - GeneralCertified Nurse Pxjuhguvumnr98/27/19Te MemberRelationship SpecialtyStart DateEnd Date Osmar Rodriguez MD [address] [place] [address] [address] PCP - GeneralFamily Shienjrb58/30/21Te MemberRelationshipSpecialtyStart Date End Date Osmar Rodriguez MD [address] [place] [address] [place] [id number] PCP - GeneralFamily Feiazgtr04/30/21Team MemberRelationshipSpecialtyStart Date End Date Osmar Rodriguez MD [address] [place] [address] [address] PCP - GeneralFamily Vjhjxcqp17/30/21Team MemberRelationshipSpecialtyStart Date End Date Osmar Rodriguez MD [address] [place] [address] [address] PCP - GeneralFamily Sxnmzthr42/30/21Team MemberRelationshipSpecialtyStart Date End Date Osmar Rodriguez MD [address] [place] [address] [address] PCP - GeneralFamily Fqeaoyix81/30/21 Team Status: Active Member Role Status Dates Carlo Grimaldo DO Emergency Provider Active Sta rt: January 19, 2024 NON STAFFPrimary Care ProviderActiveStart: January 19, 2024 Matty Ocampo Provider, Attending ProviderActiveStart: January 19, 2024 Team MemberRelationshipSpecialtyStart DateEnd Date Osmar Rodriguez MD [address] [place] [address] [address] [place] [address] PCP - GeneralFamily Rbitanpg04/7/24Team MemberRelationshipSpecialtyStart DateEnd Date Osmar Rodriguez MD [address] [place] [address] [address] [place] [address] PCP - GeneralFamily Zitzojrh51/7/24Team MemberRelationshipSpecialtyStart DateEnd Date Osmar Rodriguez MD [address] [place] [address] [address] [place] [address] PCP - GeneralFamily Ivibmnqw21/7/24Team MemberRelationshipSpecialtyStart DateEnd Date Osmar Rodriguez MD [address] [place] [address] [address] [place] [address] PCP - GeneralFamily Cznzpgub26/7/24Team MemberRelationshipSpecialtyStart DateEnd Date Osmar Rodriguez MD [address] [place] [address] [address] [place] [address] PCP - GeneralFamily Siducdvi11/7/24Team MemberRelationshipSpecialtyStart DateEnd Date Osmar Rodriguez MD [address] [place] [address] [address] [place] [address] PCP - GeneralFamily Bobtymci10/7/24Team MemberRelationshipSpecialtyStart DateEnd Date Osmar Rodriguez MD [address] [place] [address] [address] [place] [address] PCP - GeneralFamily Rngkplwb75/30/21Team MemberRelationshipSpecialtyStart Date End Date Osmar Rodriguez MD [address] [place] [address] [facility] [address] [place] [address] PCP - GeneralFamily Dpemqtto63/30/21Team MemberRelationshipSpecialtyStart Date End Date Osmar Rodriguez MD [address] [place] [address] [place] [address] PCP - GeneralFamily Hkdvatby41/30/21Team MemberRelationshipSpecialtyStart Date End Date Osmar Rodriguez MD [address] [place] [address] [place] [address] PCP - GeneralFamily Tdiegeyi62/30/21Team MemberRelationshipSpecialtyStart Date End Date Osmar Rodriguez MD [address] [place] [address] [facility] [address] [place] [address] PCP - GeneralFamily Medicine12/07/24Team MemberRelationshipSpecialtyStart DateEnd Date Osmar Rodriguez MD [address] [place] [address] [place] [address], [place] [address] PCP - GeneralFamily Rrhjvdiy13/7/24Team MemberRelationshipSpecialtyStart DateEnd Date Osmar Rodriguez MD [address] [place] [address] [address] [place] [address] PCP - GeneralFamily Medicine12/07/24 Goals (unrecognized section [...] BE BASED ON THE PRIMARY CLINICAL RECORDS. [facility] [employer] [facility]. provides no warranty or guarantee of the accuracy or completeness of information in this document.
[2025-02-19 19:12] VITALS: BP 117/64; PULSE 85; TEMP 36.8; O2SAT 96; BMI 23.6
[2025-02-19] MEDS: 0.9 % SODIUM CHLORIDE 1,000 ML 100 ML IV (22:36)
[2025-02-19] MEDS: OXYCODONE HCL/ACETAMINOPHEN 5MG/325MG 2 TAB PO (22:36)
--- NOTE | 2025-02-19 23:57 | ED.GENADUL1 ---
Documented by User: Anastacio Huffman MD 02/20/25 19:51 HPI HPI - General Adult General Chief complaint: Recheck/Abnormal Lab/Rx Stated complaint: referred by Doctor Time Seen by Provider: 02/19/25 18:44 Source: patient Mode of arrival: Wheelchair Limitations: no limitations History of Present Illness HPI narrative: patient left the hospital today AMA> She was found to have MRSA bacteremia felt most likely related to cellulitis and ulcerations on her feet. She has past PAD. past vascular surgery about 5 years ago at [facility]. CTA during her hospital stay demonstrated thrombosed left lower ext stent. she additionally has avascular necrosis of her right femoral head and UTI with cultures positive for E. coli and Klebsiella. She was called at home after she left AM and advised to go to ER at [facility] or back here at [place]. She returned here. She was informed of the plan to transfer to [facility] but she did not want to go there and requested to go to [facility]. No fever, chills or nausea Related Data Home Medications ?Medication ?Instructions ?Recorded ?Confirmed losartan 100 mg tablet 100 mg PO QDAY 09/24/22 02/16/25 methocarbamol 750 mg tablet 750 mg PO QID 09/24/22 02/16/25 gabapentin 800 mg tablet 800 mg PO TID 03/18/23 02/16/25 (Neurontin) levothyroxine 150 mcg tablet 150 mcg PO DAILY 03/18/23 02/16/25 (Synthroid) albuterol sulfate 90 mcg/actuation 2 puff inhalation QID PRN 07/17/23 02/16/25 aerosol inhaler shortness of breath or wheezing furosemide 20 mg tablet 20 mg PO DAILY 07/17/23 02/16/25 isosorbide mononitrate 30 mg 30 mg PO DAILY 07/17/23 02/17/25 tablet,extended release 24 hr metoprolol succinate 25 mg 25 mg PO DAILY 07/17/23 02/16/25 tablet,extended release 24 hr venlafaxine 75 mg capsule,extended 75 mg PO DAILY 07/17/23 02/17/25 release 24 hr zolpidem 10 mg tablet 5 mg PO QPM PRN sleep 07/17/23 02/16/25 albuterol sulfate 2.5 mg/3 mL 2.5 mg inhalation Q6H PRN 02/16/25 02/16/25 (0.083 %) solution for nebulization shortness of breath or wheezing amitriptyline 10 mg tablet 10 mg PO .QHS 02/16/25 02/16/25 amlodipine 10 mg tablet 10 mg PO DAILY 02/16/25 02/16/25 apixaban 5 mg tablet (Eliquis) 2.5 mg PO Q12H 02/16/25 02/16/25 ascorbic acid (vitamin C) 500 mg 500 mg PO BID 02/16/25 02/16/25 tablet aspirin 81 mg chewable tablet 1 tab PO DAILY 02/16/25 02/16/25 budesonide-formoterol HFA 160 2 puff inhalation Q12H 02/16/25 02/16/25 mcg-4.5 mcg/actuation aerosol inhaler (Symbicort) ergocalciferol (vitamin D2) 1,250 1,250 mcg PO QWEEK 02/16/25 02/16/25 mcg (50,000 unit) capsule hydroxyzine HCl 25 mg tablet 25 mg PO Q6H PRN anxiety 02/16/25 02/16/25 multivitamin with folic acid 400 1 tab PO DAILY 02/16/25 02/16/25 mcg tablet (Daily-Katja (with folic acid)) oxycodone-acetaminophen 7.5 mg-325 1 tab PO Q6H PRN pain 02/16/25 02/16/25 mg tablet pravastatin 40 mg tablet 40 mg PO .QHS 02/16/25 02/16/25 Previous Rx's ?Medication ?Instructions ?Recorded liothyronine 5 mcg tablet 10 mcg (2 x 5 mcg) PO ACB #60 tabs 03/20/23 meloxicam 7.5 mg tablet 7.5 mg PO DAILY PRN pain #20 tabs 02/15/25 Allergies Allergy/AdvReac Type Severity Reaction Status Date / Time codeine Allergy Hives Verified 02/19/25 19:12 ceclor AdvReac Intermediate Hives Uncoded 02/19/25 19:12 Opioid HPI Opioid Management Most Recent Opioid Data: Last Pain Scale 10 Today, 16:49 Last Pain Intensity 7 02/19/25, 14:33 Last Pain Assessment 02/19/25, 15:17 Last MAR Pain Assessment Today, 16:49 Last ORT Total Score 1 02/16/25, 09:34 Last ORT Risk Category Low Risk 02/16/25, 09:34 Ur Phencyclidine Scrn, (NEGATIVE) Negative 02/16/25, 03:26 Review of Systems ROS Status of ROS 10 or more systems reviewed and unremarkable except as noted in history and below [facility] Medical History (Updated 02/20/25 @ 00:16 by Anastacio Huffman MD) Acute exacerbation of chronic obstructive pulmonary disease ?J44.1 - Chronic obstructive pulmonary disease with (acute) exacerbation (ICD-10) Acute and chronic respiratory failure with hypoxia ?J96.21 - Acute and chronic respiratory failure with hypoxia (ICD-10) Acute exacerbation of CHF (congestive heart failure) ?I50.9 - Heart failure, unspecified (ICD-10) Smoker ?F17.200 - Nicotine dependence, unspecified, uncomplicated (ICD-10) Fall ?W19.XXXA - Unspecified fall, initial encounter (ICD-10) Oxygen dependent ?Z99.81 - Dependence on supplemental oxygen (ICD-10) CHF (congestive heart failure) ?I50.9 - Heart failure, unspecified (ICD-10) HTN (hypertension) ?I10 - Essential (primary) hypertension (ICD-10) Heart attack ?I21.9 - Acute myocardial infarction, unspecified (ICD-10) COPD (chronic obstructive pulmonary disease) ?J44.9 - Chronic obstructive pulmonary disease, unspecified (ICD-10) Surgical History Stented coronary artery ?Z95.5 - Presence of coronary angioplasty implant and graft (ICD-10) Family History (Updated 02/16/25 @ 11:01 by Sejal Flowers RN) Sister Family history of cancer Mother Family history of COPD (chronic obstructive pulmonary disease) Social History (Updated 02/16/25 @ 11:00 by Sejal Flowers RN) Within the past year, how often did you have a drink containing alcohol: never Score interpretation: A score less than 3 is consistent with normal alcohol consumption. Smoking status: Current every day smoker Non-prescribed substance use: denies use Highest level of school completed/degree received: high school graduate Little interest or pleasure in doing things: not at all Feeling down, depressed, or hopeless: not at all Exam Constitutional Vital Signs, click to edit/add: Last Vital Signs Temp 98.2 F 02/19/25 19:12 Pulse 76 02/20/25 06:48 Resp 16 02/20/25 06:48 BP 110/74 02/20/25 16:00 Pulse Ox 99 02/20/25 16:10 O2 Del Method Nasal Cannula 02/20/25 06:48 O2 Flow Rate 4 02/20/25 06:48 Common normals: no apparent distress, oriented x3, healthy appearing, alert and well nourished HENFL Common normals: normocephalic and head/scalp atraumatic Eye Common normals: EOMs intact bilaterally and conjunctivae normal Respiratory Common normals: normal respiratory effort, no retractions, no use of accessory muscles and clear to auscultation bilaterally Cardio Common normals: regular rate, regular rhythm, S1 normal heart sound and S2 normal heart sound GI Common normals: Normal to inspection, nondistended, normoactive bowel sounds present and soft to palpation Extremity Other: pressure ulcer heels. gangrene tip left 2nd toe. mild erythema of her feet Neuro Common normals: oriented x3, CN's II-XII intact bilaterally and moves all extremities Psych Appearance: grossly normal Course Vital Signs Vital signs: Vital Signs Temperature 98.2 F 02/19/25 19:12 Pulse Rate 85 02/19/25 19:12 Respiratory Rate 12 02/19/25 19:12 Blood Pressure 117/64 02/19/25 19:12 Pulse Oximetry 96 02/19/25 19:12 Oxygen Delivery Method Room Air 02/19/25 19:12 Temperature 98.2 F 02/19/25 19:12 Pulse Rate 76 02/20/25 06:48 Respiratory Rate 16 02/20/25 06:48 Blood Pressure 110/74 02/20/25 16:00 Pulse Oximetry 99 02/20/25 16:10 Oxygen Delivery Method Nasal Cannula 02/20/25 06:48 Oxygen Delivery Flow Rate 4 02/20/25 06:48 Medical Decision Making MDM Narrative Medical decision making narrative: recent hospitalization for UTI with urine cx positive for Klebsiella and E. coli. Also positive blood culture of MRSA felt most likely related to the ulcers and cellulitis of her feet. Her labs earlier today demonstrated WBC 11.2. repeat CBC ordered tonight and pending. she had surgery for PAD at [facility] about 5 years ago. CTA during her hospitalization demonstrated thrombosed lower ext. stent. Discussed with vascular surgeon at [facility] Dr Casas who is willing to consult on the patient. Discussed with hospitalist at [facility] who has accepted the patient in transfer. Patient treat with IV hydration, Vancomycin and Fortaz IVPB Lab Data Labs: Lab Results 02/20/25 Range/Units 08:20 WBC 13.4 H (4.0-11.0) 10^3/uL RBC 4.05 L (4.20-5.40) 10^6/uL Hgb 11.1 L (12.0-16.0) g/dL Hct 34.4 L (36.0-48.0) % MCV 84.9 (81.0-99.0) fL MCH 27.4 (26.7-34.0) pg MCHC 32.3 (29.9-35.2) g/dL RDW 19.6 H (11.0-15.0) % Plt Count 204 (150-450) 10^3/uL MPV 8.9 L (9.5-13.5) fL Neut % (Auto) 83.9 H (43.0-75.0) % Lymph % (Auto) 7.7 L (20.5-60.0) % Sebastian % (Auto) 5.4 (1.7-12.0) % Eos % (Auto) 1.9 (0.9-7.0) % Baso % (Auto) 0.3 (0.2-2.0) % Neut # (Auto) 11.3 H (1.4-6.5) 10^3/uL Lymph # (Auto) 1.0 L (1.2-3.8) 10^3/uL Sebastian # (Auto) 0.7 (0.3-0.8) 10^3/uL Eos # (Auto) 0.3 (0.0-0.7) 10^3/uL Baso # (Auto) 0.0 (0.0-0.1) 10^3/uL Abs Immat Gran (auto) 0.11 H (0.00-0.03) 10^3/uL Imm/Tot Granulo (auto) 0.8 H (0.0-0.5) % Sodium 138 (136-145) mmol/L Potassium 3.6 (3.5-5.1) mmol/L Chloride 105 (98-107) mmol/L Carbon Dioxide 26.4 (21.0-32.0) mmol/L Anion Gap 10.2 BUN 14.0 (7.0-18.0) mg/dL Creatinine 0.67 (0.55-1.02) mg/dL Est GFR ( Amer) >60 (>=60 mL/min/1.73m^2) Est GFR (Non-Af Amer) >60 (>=60 mL/min/1.73m^2) BUN/Creatinine Ratio 20.9 Glucose 103 (74-106) mg/dL Lactate 1.0 (0.4-2.0) mmol/L Calcium 7.9 L (8.5-10.1) mg/dL Total Bilirubin 0.5 (0.2-1.0) mg/dL AST 17 (15-37) U/L ALT 15 (14-59) U/L Alkaline Phosphatase 165 H (46-116) U/L Total Protein 5.5 L (6.4-8.2) g/dL Albumin 1.7 L (3.4-5.0) g/dL Globulin 3.8 g/dL Albumin/Globulin Ratio 0.4 Discharge Plan Discharge Chief Complaint: Recheck/Abnormal Lab/Rx Clinical Impression: Bacteremia, Acute UTI, PAD (peripheral artery disease) Patient Disposition: [facility] Discharge Date/Time: 02/20/25 17:33 Documented by User: Carole Chavez MD 02/20/25 16:15 HPI HPI - General Adult General Chief complaint: Recheck/Abnormal Lab/Rx Stated complaint: referred by Doctor Time Seen by Provider: 02/19/25 18:44 Related Data Home Medications ?Medication ?Instructions ?Recorded ?Confirmed losartan 100 mg tablet 100 mg PO QDAY 09/24/22 02/16/25 methocarbamol 750 mg tablet 750 mg PO QID 09/24/22 02/16/25 gabapentin 800 mg tablet 800 mg PO TID 03/18/23 02/16/25 (Neurontin) levothyroxine 150 mcg tablet 150 mcg PO DAILY 03/18/23 02/16/25 (Synthroid) albuterol sulfate 90 mcg/actuation 2 puff inhalation QID PRN 07/17/23 02/16/25 aerosol inhaler shortness of breath or wheezing furosemide 20 mg tablet 20 mg PO DAILY 07/17/23 02/16/25 isosorbide mononitrate 30 mg 30 mg PO DAILY 07/17/23 02/17/25 tablet,extended release 24 hr metoprolol succinate 25 mg 25 mg PO DAILY 07/17/23 02/16/25 tablet,extended release 24 hr venlafaxine 75 mg capsule,extended 75 mg PO DAILY 07/17/23 02/17/25 release 24 hr zolpidem 10 mg tablet 5 mg PO QPM PRN sleep 07/17/23 02/16/25 albuterol sulfate 2.5 mg/3 mL 2.5 mg inhalation Q6H PRN 02/16/25 02/16/25 (0.083 %) solution for nebulization shortness of breath or wheezing amitriptyline 10 mg tablet 10 mg PO .QHS 02/16/25 02/16/25 amlodipine 10 mg tablet 10 mg PO DAILY 02/16/25 02/16/25 apixaban 5 mg tablet (Eliquis) 2.5 mg PO Q12H 02/16/25 02/16/25 ascorbic acid (vitamin C) 500 mg 500 mg PO BID 02/16/25 02/16/25 tablet aspirin 81 mg chewable tablet 1 tab PO DAILY 02/16/25 02/16/25 budesonide-formoterol HFA 160 2 puff inhalation Q12H 02/16/25 02/16/25 mcg-4.5 mcg/actuation aerosol inhaler (Symbicort) ergocalciferol (vitamin D2) 1,250 1,250 mcg PO QWEEK 02/16/25 02/16/25 mcg (50,000 unit) capsule hydroxyzine HCl 25 mg tablet 25 mg PO Q6H PRN anxiety 02/16/25 02/16/25 multivitamin with folic acid 400 1 tab PO DAILY 02/16/25 02/16/25 mcg tablet (Daily-Katja (with folic acid)) oxycodone-acetaminophen 7.5 mg-325 1 tab PO Q6H PRN pain 02/16/25 02/16/25 mg tablet pravastatin 40 mg tablet 40 mg PO .QHS 02/16/25 02/16/25 Previous Rx's ?Medication ?Instructions ?Recorded liothyronine 5 mcg tablet 10 mcg (2 x 5 mcg) PO ACB #60 tabs 03/20/23 meloxicam 7.5 mg tablet 7.5 mg PO DAILY PRN pain #20 tabs 02/15/25 Allergies Allergy/AdvReac Type Severity Reaction Status Date / Time codeine Allergy Hives Verified 02/19/25 19:12 ceclor AdvReac Intermediate Hives Uncoded 02/19/25 19:12 Opioid HPI Opioid Management Most Recent Opioid Data: Last Pain Scale 10 Today, 16:49 Last Pain Intensity 7 02/19/25, 14:33 Last Pain Assessment 02/19/25, 15:17 Last MAR Pain Assessment Today, 16:49 Last ORT Total Score 1 02/16/25, 09:34 Last ORT Risk Category Low Risk 02/16/25, 09:34 Ur Phencyclidine Scrn, (NEGATIVE) Negative 02/16/25, 03:26 [facility] Medical History (Updated 02/20/25 @ 00:16 by Anastacio Huffman MD) Acute exacerbation of chronic obstructive pulmonary disease ?J44.1 - Chronic obstructive pulmonary disease with (acute) exacerbation (ICD-10) Acute and chronic respiratory failure with hypoxia ?J96.21 - Acute and chronic respiratory failure with hypoxia (ICD-10) Acute exacerbation of CHF (congestive heart failure) ?I50.9 - Heart failure, unspecified (ICD-10) Smoker ?F17.200 - Nicotine dependence, unspecified, uncomplicated (ICD-10) Fall ?W19.XXXA - Unspecified fall, initial encounter (ICD-10) Oxygen dependent ?Z99.81 - Dependence on supplemental oxygen (ICD-10) CHF (congestive heart failure) ?I50.9 - Heart failure, unspecified (ICD-10) HTN (hypertension) ?I10 - Essential (primary) hypertension (ICD-10) Heart attack ?I21.9 - Acute myocardial infarction, unspecified (ICD-10) COPD (chronic obstructive pulmonary disease) ?J44.9 - Chronic obstructive pulmonary disease, unspecified (ICD-10) Surgical History Stented coronary artery ?Z95.5 - Presence of coronary angioplasty implant and graft (ICD-10) Family History (Updated 02/16/25 @ 11:01 by Sejal Flowers RN) Sister Family history of cancer Mother Family history of COPD (chronic obstructive pulmonary disease) Social History (Updated 02/16/25 @ 11:00 by Sejal Flowers RN) Within the past year, how often did you have a drink containing alcohol: never Score interpretation: A score less than 3 is consistent with normal alcohol consumption. Smoking status: Current every day smoker Non-prescribed substance use: denies use Highest level of school completed/degree received: high school graduate Little interest or pleasure in doing things: not at all Feeling down, depressed, or hopeless: not at all Exam Constitutional Vital Signs, click to edit/add: Last Vital Signs Temp 98.2 F 02/19/25 19:12 Pulse 76 02/20/25 06:48 Resp 16 02/20/25 06:48 BP 110/74 02/20/25 16:00 Pulse Ox 99 02/20/25 16:10 O2 Del Method Nasal Cannula 02/20/25 06:48 O2 Flow Rate 4 02/20/25 06:48 Course Vital Signs Vital signs: Vital Signs Temperature 98.2 F 02/19/25 19:12 Pulse Rate 85 02/19/25 19:12 Respiratory Rate 12 02/19/25 19:12 Blood Pressure 117/64 02/19/25 19:12 Pulse Oximetry 96 02/19/25 19:12 Oxygen Delivery Method Room Air 02/19/25 19:12 Temperature 98.2 F 02/19/25 19:12 Pulse Rate 76 02/20/25 06:48 Respiratory Rate 16 02/20/25 06:48 Blood Pressure 110/74 02/20/25 16:00 Pulse Oximetry 99 02/20/25 16:10 Oxygen Delivery Method Nasal Cannula 02/20/25 06:48 Oxygen Delivery Flow Rate 4 02/20/25 06:48 Medical Decision Making MDM Narrative Medical decision making narrative: recent hospitalization for UTI with urine cx positive for Klebsiella and E. coli. Also positive blood culture of MRSA felt most likely related to the ulcers and cellulitis of her feet. Her labs earlier today demonstrated WBC 11.2. repeat CBC ordered tonight and pending. she had surgery for PAD at [facility] about 5 years ago. CTA during her hospitalization demonstrated thrombosed lower ext. stent. Discussed with vascular surgeon at [facility] Dr Casas who is willing to consult on the patient. Discussed with hospitalist Dr Boyd at [facility] who has accepted the patient in transfer. Patient treat with IV hydration, Vancomycin and Fortaz IVPB Patient care [place] to [place] at 7 AM: The patient still waiting to be transferred she does not have any acute complaint of her chronic pain Patient according to the discussion with Dr. Casas no plan for anticoagulation except for her Eliquis 2.5 mg twice daily The patient provided with the her meals and 1 dose of Tigacyl Lab Data Labs: Lab Results 02/20/25 Range/Units 08:20 WBC 13.4 H (4.0-11.0) 10^3/uL RBC 4.05 L (4.20-5.40) 10^6/uL Hgb 11.1 L (12.0-16.0) g/dL Hct 34.4 L (36.0-48.0) % MCV 84.9 (81.0-99.0) fL MCH 27.4 (26.7-34.0) pg MCHC 32.3 (29.9-35.2) g/dL RDW 19.6 H (11.0-15.0) % Plt Count 204 (150-450) 10^3/uL MPV 8.9 L (9.5-13.5) fL Neut % (Auto) 83.9 H (43.0-75.0) % Lymph % (Auto) 7.7 L (20.5-60.0) % Sebastian % (Auto) 5.4 (1.7-12.0) % Eos % (Auto) 1.9 (0.9-7.0) % Baso % (Auto) 0.3 (0.2-2.0) % Neut # (Auto) 11.3 H (1.4-6.5) 10^3/uL Lymph # (Auto) 1.0 L (1.2-3.8) 10^3/uL Sebastian # (Auto) 0.7 (0.3-0.8) 10^3/uL Eos # (Auto) 0.3 (0.0-0.7) 10^3/uL Baso # (Auto) 0.0 (0.0-0.1) 10^3/uL Abs Immat Gran (auto) 0.11 H (0.00-0.03) 10^3/uL Imm/Tot Granulo (auto) 0.8 H (0.0-0.5) % Sodium 138 (136-145) mmol/L Potassium 3.6 (3.5-5.1) mmol/L Chloride 105 (98-107) mmol/L Carbon Dioxide 26.4 (21.0-32.0) mmol/L Anion Gap 10.2 BUN 14.0 (7.0-18.0) mg/dL Creatinine 0.67 (0.55-1.02) mg/dL Est GFR ( Amer) >60 (>=60 mL/min/1.73m^2) Est GFR (Non-Af Amer) >60 (>=60 mL/min/1.73m^2) BUN/Creatinine Ratio 20.9 Glucose 103 (74-106) mg/dL Lactate 1.0 (0.4-2.0) mmol/L Calcium 7.9 L (8.5-10.1) mg/dL Total Bilirubin 0.5 (0.2-1.0) mg/dL AST 17 (15-37) U/L ALT 15 (14-59) U/L Alkaline Phosphatase 165 H (46-116) U/L Total Protein 5.5 L (6.4-8.2) g/dL Albumin 1.7 L (3.4-5.0) g/dL Globulin 3.8 g/dL Albumin/Globulin Ratio 0.4 Discharge Plan Discharge Chief Complaint: Recheck/Abnormal Lab/Rx Clinical Impression: Bacteremia, Acute UTI, PAD (peripheral artery disease) Patient Disposition: [facility] Discharge Date/Time: 02/20/25 17:33
[2025-02-20] VITALS (18 sets, daily range): BP systolic 106–163; BP diastolic 55–96; PULSE 76–81; O2SAT 88–100
[2025-02-20] MEDS: VANCOMYCIN HCL 1,000 MG in 0.9 % SODIUM CHLORIDE 250 ML 250 MG IV (00:36)
[2025-02-20] MEDS: MORPHINE SULFATE 2 MG/ML SYRINGE IV ×2 (01:07→02:26)
--- NOTE | 2025-02-20 01:09 | PC.NURSE ---
Placed on O2
[2025-02-20 08:27] LABS: Hematocrit 34.4 % (36.0-48.0); Hemoglobin 11.1 g/dL (12.0-16.0); Immature Granulocytes Abs Auto 0.11 10^3/uL (0.00-0.03); Immature Granulocytes Pct Auto 0.8 % (0.0-0.5); Lymphocytes Absolute Auto 1.0 10^3/uL (1.2-3.8); Mean Corpuscular HGB Conc 32.3 g/dL (29.9-35.2); Mean Corpuscular Hemoglobin 27.4 pg (26.7-34.0); Mean Corpuscular Volume 84.9 fL (81.0-99.0); Platelet Count 204 10^3/uL (150-450); Red Blood Count 4.05 10^6/uL (4.20-5.40); White Blood Count 13.4 10^3/uL (4.0-11.0)
[2025-02-20 08:54] LABS: Alanine Aminotransferase 15 U/L (14-59); Albumin Globulin Ratio 0.4; Albumin Level 1.7 g/dL (3.4-5.0); Alkaline Phosphatase 165 U/L (46-116); Anion Gap 10.2; Aspartate Amino Transferase 17 U/L (15-37); Blood Urea Nitrogen 14.0 mg/dL (7.0-18.0); Calcium 7.9 mg/dL (8.5-10.1); Carbon Dioxide 26.4 mmol/L (21.0-32.0); Chloride 105 mmol/L (98-107); Estimated GFR (African America >60 (>=60 mL/min/1.73m^2); Estimated GFR (Non-African Ame >60 (>=60 mL/min/1.73m^2); Globulin 3.8 g/dL; Glucose 103 mg/dL (74-106); Potassium 3.6 mmol/L (3.5-5.1); Sodium 138 mmol/L (136-145); Total Protein 5.5 g/dL (6.4-8.2)
[2025-02-20 08:56] LABS: Lactate/Lactic Acid 1.0 mmol/L (0.4-2.0)
[2025-02-20] MEDS: OXYCODONE HCL/ACETAMINOPHEN 5MG/325MG 1 TAB PO ×2 (14:23→16:49)
--- NOTE | 2025-02-22 10:31 | SWNOTE1 ---
JG called and updated Starla at [facility], her geriatric case manager, and let her know pt signed out AMA on 02/19, then returned to ED on 02/19 and was transferred to [facility]. JG faxed ED note to Starla for continuation of care.
== END 2025-02-20 17:33 | disposition short-term general hospital (02) ==
PROVIDERS: Emergency Medicine; Emergency Provider Internal Medicine
DX: R78.81 Bacteremia (principal); B95.62 Methicillin resistant Staphylococcus aureus infection as the cause of diseases classified elsewhere; N39.0 Urinary tract infection, site not specified; B96.20 Unspecified Escherichia coli [E. coli] as the cause of diseases classified elsewhere; B96.1 Klebsiella pneumoniae [K. pneumoniae] as the cause of diseases classified elsewhere; I73.9 Peripheral vascular disease, unspecified; F17.200 Nicotine dependence, unspecified, uncomplicated
CPT/HCPCS: 36415; 80048; 80053; 83605; 85025; 96365; 96367; 96375; 96376; 99285; J0713; J2270; J3243; J3373